=== PATIENT | male | born 1960 | race Caucasian/White ===

== ENCOUNTER → 2024-08-28 | Outpatient (REF) | payer MEDICAID, MEDICARE, SELFPAY ==
[2024-08-28 10:04] LABS: Hemoglobin 8.9 g/dL (13.0-16.5); Mean Corp Hgb Conc 31.8 g/dL (32-36); Mean Corpuscular Hgb 29.5 pg (27.0-32.0); Mean Corpuscular Volume 92.7 fL (80-94); Mean Platelet Vol. 9.4 fl (6.2-12.0); Platelet Count 263 K/mm3 (150-450); RBC Distribution Width CV 14.4 % (11.6-14.6); RBC Distribution Width SD 49.1 fl (35.1-43.9); Red Blood Count 3.02 M/mm3 (4.6-6.2); White Blood Count 6.7 K/mm3 (4.4-11.0)
[2024-08-28 10:26] LABS: Anion Gap 16 (5-15); BUN 54 mg/dL (4-19); BUN/Creat Ratio 10.1 RATIO (10-20); Calcium,Total 9.3 mg/dL (7.6-11.0); Carbon Dioxide 24.3 mmol/L (21.0-32.0); Chloride 100 mmol/L (98-108); Creatinine, Serum 5.39 mg/dL (0.70-1.20); EST Glomerular Filtration Rate 11 (>60); Glucose 155 mg/dL (70-99); Potassium 4.6 mmol/L (3.3-5.1); Sodium Level 140 mmol/L (133-145)
== END | disposition home or self-care (01) ==
LOC: OLS.SANC 06:40
DX: D64.9 Anemia, unspecified (principal); E11.9 Type 2 diabetes mellitus without complications; E87.5 Hyperkalemia; I10 Essential (primary) hypertension; E78.5 Hyperlipidemia, unspecified
CPT/HCPCS: 36415; 80048; 85027

== ENCOUNTER → 2024-10-07 | Outpatient (REF) | payer MEDICARE, MEDICAID, SELFPAY | LOC: OLS.SANC 04:00 | DX: E11.9 Type 2 diabetes mellitus without complications (principal) | CPT/HCPCS: 36415; 83036 ==

== ENCOUNTER → 2024-10-14 05:00 | Outpatient (REF) | payer MEDICARE, MEDICAID, SELFPAY ==
--- OUTSIDE RECORDS SUMMARY | 2024-10-14 04:09 | XMS RPT_ITS | CCD ---
Author Organization [facility] Care Team Providers Care Scrum Project Manager Name Role Phone Unavailable Primary Care Provider Unavailedward Herrera Belgica L Primary Care Provider Vega DO, Belgica L Primary Care Provider Vega DO, Belgica L Unavailable Jen Bergman RN Unavailable Unavailable Vega DO, Belgica L Primary Care Provider Vega DO, Belgica L Unavailable Vega DO, Belgica L Unavailable Vega DO, Belgica L Primary Care Provider Vega DO, Belgica L Unavailable Jen Bergman RN Unavailable Unavailable Vega DO, Belgica L Unavailable Vega DO, Belgica L Primary Care Provider Vega DO, Belgica L Unavailable Vega DO, Belgica L Unavailable Vega DO, Belgica L Primary Care Provider Vega DO, Belgica L Unavailable Vega DO, Belgica L Unavailable Vega DO, Belgica L Primary Care Provider Vega DO, Belgica L Unavailable Jen Bergman RN Unavailable Unavailable Vega DO, Belgica L Unavailable VEGA, BELGICA L Primary Care Unavailable KYLAH ORANTES Admitting Unavailable KYLAH ORANTES Attending Unavailable ROWNEY, ANTOINE T Admitting Unavailable VEGA, BELGICA L Primary Care Unavailable LUIS CARLOS SHORT JR Attending Unavailable COLLIN CHEEMA Consulting Unavailable BILLY MARTINEZ Attending Unavailabl e VEGA, BELGICA L Primary Care Unavailable Vega DO, Belgica L Unavailable Vega DO, Belgica L Unavailable Jen Bergman RN Unavailable Unavailable Vega DO, Belgica L Primary Care Provider Vega DO, Belgica L Unavailable Jen Bergman RN Unavailable Unavailable Vega DO, Belgica L Unavailable Vega DO, Belgica L Unavailable Bunny Scott MD Primary Care Provider Bunny Scott MD Primary Care Provider Bunny Scott MD Unavailable Simeon Hinds RN Unavailable Unavailable Primary Care Provider Unavailedward Dudley MD, Jose Unavailable EsterBunny judd DO Primary Care Provider ARTEM AHMADI Attending UnavailARTEM Durán Referring UnavailBUNNY Kay Primary Care Unavailable BUNNY SCOTT Primary Care Unavailable NOÉ KENNEDY Attending Unavailable BUNNY SCOTT Primary Care Unavailable ADELFO FRANCOIS Admitting Unavaila ADELFO [place] Attending Unavaila ble ANISHA BUNNY M Primary Care Unavailable YULIYA OLIVARES Admitting Unavailable YULIYA OLIVARES Attending Unavailable Bunny Scott MD Unavailable Bunny Scott MD Unavailable Bunny Scott MD Primary Care Provider Bunny Scott MD Unavailable Bunny Scott MD Unavailable BUNNY SCOTT Primary Care Unavailable RENETTA GANNON Attending Unavailable BUNNY SCOTT Primary Care Unavailable BUNNY SCOTT Primary Care Unavailable JOSE DUDLEY Consulting Unavailable BUNNY SCOTT Attending Unavailable BUNNY SCOTT Primary Care Unavailable BUNNY SCOTT Admitting Unavailable Citlaly Garcia MD Attending Provider Unava ilable Citlaly Miller Attending Unavail able Citlaly Miller Attending Unavail able Allergies Allergy Classification Reported Allergen(s) Allergy Type Date of Onset Reaction(s) Facility Penicillins (antibiotic) (4 sources) Penicillins Drug Allergy 07-24-2020 Unknown [facility] (18 sources) Penicillins; Translations: [PENICILLINS] Propensity to adverse reactions to drug 07-24-2020 Unknown [facility] (20 sources) Penicillins Propensity to adverse reactions to drug 07-24-2020 Unknown [facility] (5 sources) Penicillins Propensity to adverse reactions to drug 07-24-2020 Unknown [facility] Medications Current Medications Medication Drug Class(es) Dates Sig (Normalized) Sig (Original) acetaminophen 325 mg / oxyCODONE hydrochloride 5 mg oral tablet (2 sources) Opioid Agonist Start: 09-02-2022 End: 09-09-2022 take 1 tablet by mouth every four hours as needed for pain oxyCODONE-acetamin ophen (PERCOCET) 5-325 mg tablet Indications: Chronic left hip pain , Lumbar back pain with radiculopathy affecting lower extremity , Spinal stenosis of lumbar region with neurogenic claudication , Lumbar radiculopathy , Chronic bilateral low back pain with left-sided sciatica , Spinal stenosis of lumbar region, unspecified whether neurogenic claudication present Take 1 tablet by mouth every 4 hours as needed for pain for up to 7 days. 28 tablet 0 09/02/2022 09/09/2022 Active Comment on above: Take 1 tablet by corinne th every 4 hours as needed for pain for up to 7 days. Administered Medications Medication Order MAR Action Action Date Dose Rate Site tuberculin skin test, unspecified formulation Given 04/28/2021 (1 source) Administered Medications Medication Order MAR Action Action Date Dose Rate Site tuberculin skin test, unspecified formulation Given 04/28/2021 [id number] 200 actuat albuterol 0.09 mg/actuat metered dose inhaler (20 sources) beta2-Adrenergic Agonist Start: 11-06-2020 End: 01-18-2022 take 2 puff(s) by inhalation every four hours as needed for wheezing albuterol HFA (PROVENTIL HFA, VENTOLIN HFA) 90 mcg/actuation inhaler Indications: SOB (shortness of breath) Inhale 2 Puffs as instructed every 4 hours as needed for wheezing/shortness of breath. 1 Each 0 11/06/2020 01/18/2022 Discontinued (Other) Comment on above: Inhale 2 Puffs as in structed every 4 hours as needed for wheezing/shortness of breath. amLODIPine 5 mg oral tablet (20 sources) Dihydropyridine Calcium Channel Meghan Start: 10-20-2023 End: 01-18-2024 take 1 tablet by mouth twice daily amLODIPine (NORVASC) 5 mg tablet Take 1 tablet by mouth two times a day. 60 tablet 2 10/20/2023 Active Start: 06-10-2023 End: 09-08-2023 take 1 tablet by mouth twice daily amLODIPine (NORVASC) 5 mg tablet Take 1 tablet by mouth two times a day. 180 tablet 0 06/10/2023 Suspended Comment on above: Take 1 tablet by corinne th two times a day. 12 hr buPROPion hydrochloride 100 mg extended release oral tablet (20 sources) Aminoketone Start: 05-31-19 End: 01-19-20 take 1 tablet by mouth once daily buPROPion SR (WELLBUTRIN SR) 100 mg 12 hr tablet Indications: Severe episode of recurrent major depressive disorder, without psychotic features (HCC) , Medication non-compliance due to excessive pill burden , Cannabis use disorder, severe, dependence (HCC) , Tobacco use disorder, mild, in sustained remission Take 1 tablet by mouth once daily. 30 tablet 2 05/31/2021 01/18/2022 Discontinued (Discontinued by Patient) Comment on above: Take 1 tablet by corinne th once daily. carvedilol 25 mg oral tablet (20 sources) alpha-Adrenergic Meghan, beta-Adrenergic Meghan Start: 10-20-19 take 1 tablet by mouth twice daily at mealtime carvedilol (COREG) 25 mg tablet Take 1 tablet by mouth two times a day with meals. 60 tablet 2 10/20/2023 Active Start: 05-26-2023 take 1 tablet by corinne th twice daily at mealtime carvedilol (COREG) 25 mg tablet Take 1 tablet by mouth two times a day with meals. 0 05/26/2023 Suspended Comment on above: Take 1 tablet by corinne th two times a day with meals. cephalexin 500 mg oral capsule (5 sources) Cephalosporin Antibacterial Start: End: take 1 capsule by mouth three times daily cephALEXin (KEFLEX) 500 mg capsule Take 1 capsule by mouth three times a day for 5 days. 15 capsule 0 10/20/2023 10/25/2023 Active clotrimazole 10 mg/ml topical cream (4 sources) Azole Antifungal Start: End: clotrimazole (LOTRIMIN, CLOTRIM) 1 % cream Indications: Tinea pedis of both feet Apply 1 application to affected area twice daily. 45 g 0 06/02/2021 08/02/2021 Active Comment on above: Apply 1 application to affected area twice daily. cyclobenzaprine hydrochloride 10 mg oral tablet (20 sources) Muscle Relaxant Start: take 1 tablet by mouth three times daily as needed for muscle spasms cyclobenzaprine (FLEXERIL) 10 mg tablet Indications: Somatic dysfunction of lumbar region Take 1 tablet by mouth three times a day as needed for muscle spasm. 21 tablet 10/20/2023 Active Start: 01-04-2023 take 1 tablet by corinne th three times daily as needed for muscle spasms cyclobenzaprine (FLEXERIL) 10 mg tablet Indications: Somatic dysfunction of lumbar region Take 1 tablet by mouth three times a day as needed for muscle spasm. 15 tablet 0 01/04/2023 Suspended Start: 09-16-2022 take 1 tablet by corinne th every eight hours as needed cyclobenzaprine (FLEXERIL) 10 mg tablet Take 1 tablet by mouth three times daily as needed for muscle spasm. 15 tablet 0 09/16/2022 Active Start: 09-02-2022 take 1 tablet by corinne th at bedtime as needed cyclobenzaprine (FLEXERIL) 10 mg tablet Indications: Chronic left hip pain , Lumbar back pain with radiculopathy affecting lower extremity , Spinal stenosis of lumbar region with neurogenic claudication , Lumbar radiculopathy , Chronic bilateral low back pain with left-sided sciatica , Spinal stenosis of lumbar region, unspecified whether neurogenic claudication present Take 1 tablet by mouth at bedtime as needed. 30 tablet 1 09/02/2022 Active Comment on above: Take 1 tablet by corinne th at bedtime as needed. Take 1 tablet by corinne th three times daily as needed for muscle spasm. Take 1 tablet by corinne th three times a day as needed for muscle spasm. dapagliflozin 10 mg oral tablet (12 sources) Sodium-Glucose Cotransporter 2 Inhibitor Start: End: take 1 tablet by mouth once daily at breakfast dapagliflozin propanediol (FARXIGA) 10 mg tablet Take 1 tablet by mouth daily with breakfast. 90 tablet 1 01/24/2024 Active diazePAM 10 mg oral tablet (20 sources) Benzodiazepine Start: take 1 tablet by mouth every twelve hours as needed diazePAM (VALIUM) 10 mg tablet Take 10 mg by mouth two times a day as needed for anxiety. 11/07/2023 Active doxazosin 2 mg oral tablet (20 sources) alpha-Adrenergic Meghan Start: End: take 1 tablet by mouth once daily at bedtime doxazosin (CARDURA) 2 mg tablet Take 1 tablet by mouth daily at bedtime. 30 tablet 07/15/2024 08/14/2024 Active Start: 10-20-2023 take 1 tablet by corinne th once daily at bedtime doxazosin (CARDURA) 1 mg tablet Take 1 tablet by mouth daily at bedtime. 30 tablet 2 10/20/2023 Suspended doxycycline hyclate 100 mg oral tablet (6 sources) Tetracycline-class Drug Start: 09-28-2022 End: 10-08-2022 take 1 tablet by mouth twice daily doxycycline (VIBRA-TABS) 100 mg tablet Indications: Cutaneous abscess of abdominal wall Take 1 tablet by mouth twice daily for 10 days. 20 tablet 0 09/28/2022 10/08/2022 Active Start: 09-02-2021 End: 09-12-2021 take 1 tablet by mouth twice daily doxycycline monohydrate 100 mg tablet Take 1 tablet by mouth twice daily for 5 days. 10 tablet 0 09/07/2021 09/12/2021 Active Comment on above: Take 1 tablet by corinne th twice daily for 5 days. Take 1 tablet by corinne th twice daily for 10 days. DULoxetine 30 mg delayed release oral capsule (20 sources) Serotonin and Norepinephrine Reuptake Inhibitor Start: take 1 capsule by mouth once daily DULoxetine (CYMBALTA) 30 mg capsule Take 1 capsule by mouth once daily. 30 capsule 2 10/21/2023 Active ergocalciferol 1.25 mg oral capsule (20 sources) Provitamin D2 Compound Start: End: 025 take 1 capsule by mouth every week ergocalciferol 50,000 unit capsule (VITAMIN D2, DRISDOL) Take 1 capsule by mouth one time a week. 12 capsule 1 01/25/2024 Active Start: 01-30-2022 End: 06-29-2022 take 1 capsule by mouth every week ergocalciferol 50,000 unit capsule (VITAMIN D2, DRISDOL) Take 1 capsule by mouth one time a week. 4 capsule 0 01/30/2022 06/29/2022 Discontinued (Duplicate Entry) Start: 01-30-2022 take 1 capsule by mo [facility] every week ergocalciferol 50,000 unit capsule (VITAMIN D2, DRISDOL) Take 1 capsule by mouth one time a week. 4 capsule 0 01/30/2022 Active Comment on above: Take 1 capsule by mo [facility] one time a week. finasteride 5 mg oral tablet (13 sources) 5-alpha Reductase Inhibitor Start: 05-04-2022 End: 08-02-2022 take 1 tablet by mouth once daily finasteride (PROSCAR) 5 mg tablet Take 1 tablet by mouth once daily. 90 tablet 3 05/04/2022 08/02/2022 Active Comment on above: Take 1 tablet by corinne once daily. furosemide 20 mg oral tablet (20 sources) Loop Diuretic Start: 06-10-2023 take 1 tablet by mouth once daily after lunch furosemide (LASIX) 20 mg tablet Take 1 tablet by mouth daily after lunch. 30 tablet 0 06/10/2023 Active Start: 10-13-2022 take 1 tablet by corinne th once daily furosemide (LASIX) 20 mg tablet Take 1 tablet by mouth once daily. 90 tablet 1 10/13/2022 Suspended Comment on above: Take 1 tablet by corinne th once daily. Take 1 tablet by corinne th daily after lunch. gabapentin 300 mg oral capsule (20 sources) Anti-epileptic Agent Start: 10-22-19 End: 01-19-20 take 1 capsule by mouth three times daily gabapentin (NEURONTIN) 300 mg capsule Indications: Spinal stenosis of lumbar region with neurogenic claudication , Chronic bilateral low back pain with left-sided sciatica Take 1 capsule by mouth three times daily for 90 days. 90 capsule 2 10/21/2020 01/18/2022 Discontinued (Discontinued by Patient) Comment on above: Take 1 capsule by mo [facility] three times daily for 90 days. 1 ml heparin sodium, porcine 1000 unt/ml injection (1 source) Unfractionated Heparin, Anti-coagulant Start: 07-25-19 heparin 1,000 unit/mL soln Inject 3.6 mL intravenously as needed (To close HD catheter. Fill each lumen to prescribed volume.). 07/24/2024 Active hydrALAZINE hydrochloride 50 mg oral tablet (20 sources) Arteriolar Vasodilator Start: 07-16-19 End: 08-15-19 take 1 tablet by mouth twice daily hydrALAZINE (APRESOLINE) 50 mg tablet Take 1 tablet by mouth two times a day. 60 tablet 07/15/2024 08/14/2024 Active Start: 10-20-2023 take 1 tablet by corinne twice daily hydrALAZINE (APRESOLINE) 25 mg tablet Take 1 tablet by mouth two times a day. 60 tablet 2 10/20/2023 Suspended Start: 06-12-2023 take 1 tablet by corinne th twice daily hydrALAZINE (APRESOLINE) 25 mg tablet Take 1 tablet by mouth two times a day. 120 tablet 0 06/12/2023 Suspended Comment on above: Take 1 tablet by corinne two times a day. 1.5 ml insulin glargine 300 unt/ml pen injector (20 sources) Insulin Analog Start: 5 End: 5 inject 18 [IU] by subcutaneous injection once daily in the morning insulin glargine U-300 conc (TOUJEO SOLOSTAR U-300 INSULIN) 300 unit/mL (1.5 mL) Inject 18 Units subcutaneously every morning. 3 mL 07/15/2024 08/14/2024 Active Start: 10-20-2023 insulin glargi ne (BASAGLAR KWIKPEN U-100 INSULIN) 100 unit/mL (3 mL) Inject 24 Units subcutaneously daily at bedtime. 5 Each 2 10/20/2023 Suspended Start: 06-10-2023 End: 09-08-2023 insulin glargine (BASAGLAR K WIKPEN U-100 INSULIN) 100 unit/mL (3 mL) Inject 24 Units subcutaneously daily at bedtime. 7.2 mL 2 06/10/2023 Suspended Start: 11-04-2022 inject 26 [IU] by kim bcutaneous injection once daily at bedtime insulin glargine 100 unit/mL (3 mL) Indications: Diabetes mellitus due to underlying condition, uncontrolled, with hyperglycemia (HCC) Inject 26 Units subcutaneously daily at bedtime. 6 Each 1 11/04/2022 Suspended Start: 03-01-2022 End: 11-04-2022 inject 26 [IU] by subcutaneous injection once daily at bedtime insulin glargine 100 unit/mL (3 mL) Indications: Diabetes mellitus due to underlying condition, uncontrolled, with hyperglycemia (HCC) Inject 26 Units subcutaneously daily at bedtime. 6 Each 1 11/04/2022 Active Start: 06-02-2021 End: 03-01-2022 insulin glargine (LANTUS EV OSTAR, BASAGLAR KWIKPEN) 100 unit/mL (3 mL) Indications: Diabetes mellitus due to underlying condition, uncontrolled, with hyperglycemia (HCC) Inject 26 Units subcutaneously daily at bedtime. 6 Each 1 03/01/2022 Active Comment on above: Inject 26 Units subc utaneously daily at bedtime. Inject 24 Units subc utaneously daily at bedtime. 3 ml insulin lispro 100 unt/ml pen injector (20 sources) Insulin Analog Start: 10-20-2023 insulin lispro (HUMALOG KWIKPEN INSULIN) 100 unit/mL Inject 8 Units subcutaneously three times a day before meals. SLIDING SCALE: bld sugar 60-124=0 units 125-150=2 units, 151-200=4 units, 201-250=6 untis 251-300=8 units, 301-350=10 units, 351-400=12 units 11/03/2023 Active Start: 06-13-2023 inject 8 [IU] by sub cutaneous injection three times daily before mealtime insulin lispro (HUMALOG KWIKPEN) 100 unit/mL Inject 8 Units subcutaneously three times a day before meals. 3 Each 2 06/13/2023 Suspended Comment on above: Inject 8 Units subcu taneously three times a day before meals. iv contrast (will be provided with radiology test) (20 sources) Start: 12-11-2020 End: 01-18-2022 iv contrast (will be provided with radiology test) MRI Pelvis Inject, intravenously, once for 1 dose. No IV access, insert saline lock prior to the beginning of sedation, infusion, injection of imaging exam. Discontinue saline lock post exam. If Pt has a central line or IVAD, may access for administration according to line specific nursing protocol. Once exam is complete flush line and de-access according to line specific nursing protocol in the MR contrast administration guidelines link. 1 Each 0 12/11/2020 01/18/2022 Discontinued (Other) Start: 12-11-2020 iv contrast (w ill be provided with radiology test) MRI Pelvis Inject, intravenously, once for 1 dose. No IV access, insert saline lock prior to the beginning of sedation, infusion, injection of imaging exam. Discontinue saline lock post exam. If Pt has a central line or IVAD, may access for administration according to line specific nursing protocol. Once exam is complete flush line and de-access according to line specific nursing protocol in the MR contrast administration guidelines link. 1 Each 0 12/11/2020 Suspended Start: 12-11-2020 iv contrast (w ill be provided with radiology test) MRI Pelvis Inject, intravenously, once for 1 dose. No IV access, insert saline lock prior to the beginning of sedation, infusion, injection of imaging exam. Discontinue saline lock post exam. If Pt has a central line or IVAD, may access for administration according to line specific nursing protocol. Once exam is complete flush line and de-access according to line specific nursing protocol in the MR contrast administration guidelines link. 1 Each 0 12/11/2020 Active Start: 02-20-2020 End: 02-21-2020 inject 1 dose intravenous route once iv contrast (will be provided with radiology test) Indications: Dizziness CTA Head WO/W IVCON No IV access, insert saline lock prior to the sedation, infusion, injection for imaging exam. Discontinue saline lock post exam. If Pt. has a central line or IVAD, may access for administration according to line specific nursing protocol. Once exam is complete flush line and de-access according to line specific nursing protocol in the CT contrast administration guidelines link. 1 Each 0 02/20/2020 02/21/2020 Active Comment on above: CTA Head WO/W IVCON No IV access, insert saline lock prior to the sedation, infusion, injection for imaging exam. Discontinue saline lock post exam. If Pt. has a central line or IVAD, may access for administration according to line specific nursing protocol. Once exam is complete flush line and de-access according to line specific nursing protocol in the CT contrast administration guidelines link. MRI Pelvis Inject, i ntravenously, once for 1 dose. No IV access, insert saline lock prior to the beginning of sedation, infusion, injection of imaging exam. Discontinue saline lock post exam. If Pt has a central line or IVAD, may access for administration according to line specific nursing protocol. Once exam is complete flush line and de-access according to line specific nursing protocol in the MR contrast administration guidelines link. pantoprazole 40 mg delayed release oral tablet (20 sources) Proton Pump Inhibitor Start: 10-20-19 take 1 tablet by mouth once daily pantoprazole DR (PROTONIX) 40 mg tablet Take 1 tablet by mouth once daily. 30 tablet 2 10/20/2023 Active Start: 04-02-2022 End: 05-02-2022 take 1 tablet by mouth once daily, then take 6 tablets by mouth in the morning pantoprazole DR (PROTONIX) 40 mg tablet Take 1 tablet by mouth DAILY (6 AM). 30 tablet 2 04/02/2022 Suspended Start: 04-24-2021 End: 01-18-2022 take 1 tablet by mouth twice daily before mealtime pantoprazole DR (PROTONIX) 40 mg tablet Take 1 tablet by mouth twice daily before meals (0600/1600). 60 tablet 0 04/24/2021 01/18/2022 Discontinued (Other) Comment on above: Take 1 tablet by corinne th twice daily before meals (0600/1600). Take 1 tablet by corinne th DAILY (6 AM). perflutren lipid microspheres 1.3 mL in NaCl (PF) 0.9% 10 mL injection (DEFINITY) (15 sources) Start: 10-14-19 End: 01-12-20 perflutren lipid microspheres 1.3 mL in NaCl (PF) 0.9% 10 mL injection (DEFINITY) predniSONE 20 mg oral tablet (1 source) Start: 09-17-19 End: 09-21-19 take 2 tablets by mouth once daily predniSONE (DELTASONE) 20 mg tablet Take 2 tablets by mouth once daily for 4 doses. 8 tablet 0 09/16/2022 09/20/2022 Active Comment on above: Take 2 tablets by mo [facility] once daily for 4 doses. sodium polystyrene sulfonate 250 mg/ml oral suspension (2 sources) Start: 11-07-19 sodium polystyrene sulfonate, with sorbitol, (SPS, WITH SORBITOL,) 30-40 gram/120 mL enema liquid 30 g one time only. oral x 1 dose, mix 30g in 8oz h20 0 11/07/2023 Active sodium zirconium cyclosilicate 5000 mg powder for oral suspension (8 sources) Start: 07-17-19 End: 08-16-19 sodium zirconium cyclosilicate (LOKELMA) 5 gram oral packet Take 3 packets by mouth once daily. 90 packet 07/16/2024 08/15/2024 Active Start: 04-26-2024 End: 05-26-2024 take 1 dose by mouth once daily sodium zirconium cyclosilicate (LOKELMA) 10 gram oral packet Take 1 Packet by mouth once daily. Mix powder in 45 mL of water, stir and drink immediately. 30 Packet 04/26/2024 05/26/2024 Active sulfamethoxazole 800 mg / trimethoprim 160 mg oral tablet (5 sources) Dihydrofolate Reductase Inhibitor Antibacterial, Sulfonamide Antimicrobial Start: 09-28-2022 End: 10-08-2022 take 1 tablet by mouth twice daily sulfamethoxazole-trimethoprim (BACTRIM DS) 800-160 mg per tablet Indications: Cutaneous abscess of abdominal wall Take 1 tablet by mouth twice daily for 10 days. 20 tablet 0 09/28/2022 10/08/2022 Active Comment on above: Take 1 tablet by corinne th twice daily for 10 days. Take 1 tablet by corinne th twice daily for 5 days. Completed/Discontinued Medications Medication Drug Class(es) Dates Sig (Normalized) Sig (Original) acetaminophen 500 mg oral tablet (20 sources) Start: 10-20-2023 End: 01-24-2024 take 2 tablets by mouth every eight hours acetaminophen (TYLENOL) 500 mg tablet Take 2 tablets by mouth every 8 hours. 10/20/2023 01/24/2024 Discontinued Start: 09-16-2022 End: 05-23-2023 take 2 tablets by mouth every eight hours acetaminophen (TYLENOL) 500 mg tablet Take 2 tablets by mouth every 8 hours. 80 tablet 0 09/16/2022 05/23/2023 Discontinued Comment on above: Take 2 tablets by mo [facility] every 8 hours. atorvastatin 40 mg oral tablet (6 sources) HMG-CoA Reductase Inhibitor Start: 2 End: 2 take 1 tablet by mouth once daily at bedtime atorvastatin (LIPITOR) 40 mg tablet Take 1 tablet by mouth daily at bedtime. 30 tablet 0 01/26/2022 03/01/2022 Discontinued (Discontinued by Patient) Comment on above: Take 1 tablet by [facility] daily at bedtime. benoxinate hydrochloride 4 mg/ml / fluorescein sodium 3 mg/ml ophthalmic solution (6 sources) Diagnostic Dye Start: 4 End: fluorescein-benoxina te 0.3-0.4 % 1 Drop (FLURESS) Start: 12-29-2023 End: 12-30-2023 1 Drop, BOTH EYES, DIRECT ED, Starting on 12/29/23 at 1500, Until 12/30/23 at 0259, Administer for applanation tonometry. In the event of a Fluress shortage, administer Rhiannon-Fluor 1 drop into both eyes as directed for applanation tonometry, OPHT CLINIC MED ORDERS Start: 09-16-2022 End: 09-17-2022 fluorescein-benoxinate 0.25- 0.4 % 1 Drop (FLURESS) Start: 07-14-2022 End: 07-15-2022 fluorescein-benoxinate 0.25- 0.4 % 1 Drop (FLURESS) Start: 11-05-2021 End: 11-06-2021 fluorescein-benoxinate 0.25- 0.4 % 1 Drop (FLURESS) Blood-Glucose Meter monitori ng kit (20 sources) Start: 05-18-2022 Blood-Glucose Meter monitoring kit Indications: Diabetes mellitus due to underlying condition, uncontrolled, with hyperglycemia (HCC) For monitoring sugars 3x/day (patient on insulin) 1 Each 1 05/18/2022 Suspended Start: 05-18-2022 Blood-Glucose Meter monitoring kit Indications: Diabetes mellitus due to underlying condition, uncontrolled, with hyperglycemia (HCC) For monitoring sugars 3x/day (patient on insulin) 1 Each 1 05/18/2022 Active Start: 10-06-2020 End: 05-18-2022 Blood-Glucose Meter monitori ng kit For monitoring sugars 3x/day (patient on insulin) 1 Each 1 10/06/2020 05/18/2022 Discontinued Start: 10-06-2020 Blood-Glucose Meter monitoring kit For monitoring sugars 3x/day (patient on insulin) 1 Each 1 10/06/2020 Suspended Start: 10-06-2020 Blood-Glucose Meter monitoring kit For monitoring sugars 3x/day (patient on insulin) 1 Each 1 10/06/2020 Active Comment on above: For monitoring sugar s 3x/day (patient on insulin) cholecalciferol 1.25 mg oral capsule (20 sources) Vitamin D Start: 2022 End: 2023 take 1 capsule by mouth every week cholecalciferol, Vitamin D3, (VITAMIN D3) 1,250 mcg (50,000 unit) cap capsule Indications: Vitamin D deficiency Take 1 capsule by mouth one time a week. 12 capsule 0 12/23/2022 05/23/2023 Discontinued Comment on above: Take 1 capsule by [facility] one time a week. ciprofloxacin 3 mg/ml ophthalmic solution (20 sources) Quinolone Antimicrobial Start: 2022 take 1 drop(s) into the eye(s) four times daily ciprofloxacin HCl (CILOXAN) 0.3 % ophthalmic solution Use 1 Drop in the left eye four times daily. 5 mL 1 07/14/2022 Active Comment on above: Use 1 Drop in the le ft eye four times daily. clindamycin 300 mg oral capsule (3 sources) Lincosamide Antibacterial Start: 2021 End: 2021 take 1 capsule by mouth three times daily clindamycin (CLEOCIN) 300 mg capsule Indications: Abscess of neck Take 1 capsule by mouth three times daily. 30 capsule 0 09/20/2021 10/05/2021 Discontinued (Course of therapy completed) Comment on above: Take 1 capsule by [facility] three times daily. 0.5 ml dulaglutide 3 mg/ml auto-injector (20 sources) GLP-1 Receptor Agonist Start: 2021 End: 2022 inject 1.5 mg by subcutaneous injection every week dulaglutide (TRULICITY) 1.5 mg/0.5 mL pen injector Indications: Diabetes mellitus due to underlying condition, uncontrolled, with hyperglycemia (HCC) Inject 1.5 mg subcutaneously one time a week. 4 Each 1 03/01/2022 04/13/2022 Discontinued (Changing Therapy/Dosage Form) Start: 07-05-2021 End: 08-11-2021 inject 0.75 mg by subcutaneous injection every week dulaglutide (TRULICITY) 0.75 mg/0.5 mL pen injector Indications: Diabetes mellitus due to underlying condition, uncontrolled, with hyperglycemia (HCC) Inject 0.75 mg subcutaneously one time a week. 30 Each 1 07/05/2021 08/11/2021 Discontinued (Changing Therapy/Dosage Form) Comment on above: Inject 0.75 mg subcu taneously one time a week. Inject 1.5 mg subcut aneously one time a week. dulaglutide (TRULICITY) 3 mg/0.5 mL pen injector (7 sources) Start: End: inject 3 mg by subcutaneous injection every week dulaglutide (TRULICITY) 3 mg/0.5 mL pen injector Inject 3 mg subcutaneously one time a week. 4 Each 1 04/13/2022 05/18/2022 Discontinued (Changing Therapy/Dosage Form) Start: 04-13-2022 inject 3 mg by subcu taneous injection every week dulaglutide (TRULICITY) 3 mg/0.5 mL pen injector Inject 3 mg subcutaneously one time a week. 4 Each 1 04/13/2022 Active Comment on above: Inject 3 mg subcutan eously one time a week. dulaglutide (TRULICITY) 4.5 mg/0.5 mL pen injector (20 sources) Start: End: inject 4.5 mg by subcutaneous injection every week dulaglutide (TRULICITY) 4.5 mg/0.5 mL pen injector Indications: Diabetes mellitus due to underlying condition, uncontrolled, with hyperglycemia (HCC) Inject 4.5 mg subcutaneously one time a week. 12 Each 0 11/04/2022 05/23/2023 Discontinued Start: 11-04-2022 inject 4.5 mg by sub cutaneous injection every week dulaglutide (TRULICITY) 4.5 mg/0.5 mL pen injector Indications: Diabetes mellitus due to underlying condition, uncontrolled, with hyperglycemia (HCC) Inject 4.5 mg subcutaneously one time a week. 12 Each 0 11/04/2022 Active Start: 06-29-2022 End: 11-04-2022 inject 4.5 mg by subcutaneous injection every week dulaglutide (TRULICITY) 4.5 mg/0.5 mL pen injector Indications: Diabetes mellitus due to underlying condition, uncontrolled, with hyperglycemia (HCC) Inject 4.5 mg subcutaneously one time a week. 12 Each 0 06/29/2022 11/04/2022 Discontinued Start: 06-29-2022 inject 4.5 mg by sub cutaneous injection every week dulaglutide (TRULICITY) 4.5 mg/0.5 mL pen injector Indications: Diabetes mellitus due to underlying condition, uncontrolled, with hyperglycemia (HCC) Inject 4.5 mg subcutaneously one time a week. 12 Each 06/29/2022 Active Start: 05-18-2022 End: 06-29-2022 inject 4.5 mg by subcutaneous injection every week dulaglutide (TRULICITY) 4.5 mg/0.5 mL pen injector Indications: Diabetes mellitus due to underlying condition, uncontrolled, with hyperglycemia (HCC) Inject 4.5 mg subcutaneously one time a week. 4 Each 05/18/2022 06/29/2022 Discontinued Start: 05-18-2022 inject 4.5 mg by sub cutaneous injection every week dulaglutide (TRULICITY) 4.5 mg/0.5 mL pen injector Indications: Diabetes mellitus due to underlying condition, uncontrolled, with hyperglycemia (HCC) Inject 4.5 mg subcutaneously one time a week. 4 Each 05/18/2022 Active Comment on above: Inject 4.5 mg subcut aneously one time a week. hydroCHLOROthiazide 12.5 mg oral tablet (1 source) Thiazide Diuretic Start : 04-25 take 1 tablet by mouth once daily hydroCHLOROthiazide (HYDRODIURIL, ESIDRIX) 12.5 mg tablet Take 1 tablet by mouth once daily. 30 tablet 0 04/25/2021 Active Comment on above: Take 1 tablet by corinne [facility] once daily. isopropyl alcohol 0.7 ml/ml medicated pad (20 sources) Start : 05-18 alcohol swabs (ALCOHOL PREP PADS) Indications: Diabetes mellitus due to underlying condition, uncontrolled, with hyperglycemia (HCC) Apply 1 application to affected area as directed. Recommend check blood sugar once daily, rotate times. Sometimes check in the morning sometimes 2 hours after meals, sometimes at bedtime. Please bring in blood sugar log and have available for review. 100 Each 3 05/18/2022 Suspended Start: 09-11-2020 End: 05-18-2022 alcohol swabs (ALCOHOL PREP PADS) Indications: Diabetes mellitus due to underlying condition, uncontrolled, with hyperglycemia (HCC) Apply 1 application to affected area as directed. 100 Each 3 09/11/2020 05/18/2022 Discontinued Comment on above: Apply 1 application to affected area as directed. Apply 1 application to affected area as directed. Recommend check blood sugar once daily, rotate times. Sometimes check in the morning sometimes 2 hours after meals, sometimes at bedtime. Please bring in blood sugar log and have available for review. ketorolac tromethamine 5 mg/ml ophthalmic solution (20 sources) Nonsteroidal Anti-inflammatory Drug, Cyclooxygenase Inhibitor Start: take 1 drop(s) into the eye(s) four times daily keTORolac (ACULAR) 0.5 % ophthalmic solution Use 1 Drop in the left eye four times daily. 5 mL 1 07/14/2022 Active Comment on above: Use 1 Drop in the le ft eye four times daily. lidocaine 0.05 mg/mg medicated patch (20 sources) Antiarrhythmic, Amide Local Anesthetic Start: End: apply 1 dose transdermal route once daily, then apply 1 dose transdermal route every twelve hours lidocaine (LIDODERM) 5 % Apply 1 Patch as directed once daily. to affected area. Remove patch after 12 hours. 15 Patch 0 09/16/2022 05/23/2023 Discontinued Start: 11-24-2020 End: 01-18-2022 lidocaine (XYLOCAINE) 2 % je lly Apply 1 application to affected area three times daily. 30 mL 2 11/24/2020 01/18/2022 Discontinued (Other) Comment on above: Apply 1 application to affected area three times daily. Apply 1 Patch as dir ected once daily. to affected area. Remove patch after 12 hours. lisinopril 5 mg oral tablet (20 sources) Angiotensin Converting Enzyme Inhibitor Start: End: take 1 tablet by mouth once daily lisinopril (ZESTRIL) 5 mg tablet Indications: Hypertension, essential Take 1 tablet by mouth once daily. 30 tablet 1 12/23/2022 05/23/2023 Discontinued Start: 09-16-2022 End: 05-23-2023 take 1 tablet by mouth once daily lisinopril (ZESTRIL) 10 mg tablet Indications: Hypertension, essential Take 1 tablet by mouth once daily. 90 tablet 0 11/04/2022 05/23/2023 Discontinued Start: 06-29-2022 take 1.5 tablets by mouth once daily lisinopril (ZESTRIL) 5 mg tablet Indications: Hypertension, essential Take 1.5 tablets by mouth once daily. 45 tablet 1 06/29/2022 Active Start: 03-01-2022 End: 06-29-2022 take 1 tablet by mouth once daily lisinopril (ZESTRIL, PRINIVIL) 5 mg tablet Indications: Hypertension, essential , Microalbuminuria Take 1 tablet by mouth once daily. 90 tablet 1 05/18/2022 06/29/2022 Discontinued (Changing Therapy/Dosage Form) Start: 01-27-2022 End: 03-01-2022 take 1 tablet by mouth once daily lisinopril (ZESTRIL, PRINIVIL) 20 mg tablet Take 1 tablet by mouth once daily. 30 tablet 0 01/27/2022 03/01/2022 Discontinued (Changing Therapy/Dosage Form) Start: 06-02-2021 End: 01-03-2022 take 1 tablet by mouth once daily lisinopril (ZESTRIL, PRINIVIL) 20 mg tablet Indications: Hypertension, essential Take 1 tablet by mouth once daily. 90 tablet 1 11/05/2021 01/03/2022 Discontinued (Discontinued by Patient) Start: 05-28-2020 take 1 tablet by [facility] once daily lisinopril (ZESTRIL, PRINIVIL) 10 mg tablet Indications: Hypertension, essential Take 1 tablet by mouth once daily. 30 tablet 2 05/28/2020 Active Start: 03-23-2020 End: 05-28-2020 take 0.5 tablet by mouth once daily lisinopril (ZESTRIL, PRINIVIL) 20 mg tablet Indications: Uncontrolled hypertension Take 0.5 tablets by mouth once daily. 30 tablet 2 03/23/2020 05/28/2020 Discontinued (Changing Therapy/Dosage Form) Start: 02-14-2020 End: 03-23-2020 take 1 tablet by mouth once daily lisinopril (ZESTRIL, PRINIVIL) 5 mg tablet Take 1 tablet by mouth once daily. 30 tablet 2 02/14/2020 03/23/2020 Discontinued (Changing Therapy/Dosage Form) Comment on above: Take 1 tablet by [facility] once daily. Take 0.5 tablets by mouth once daily. Take 1.5 tablets by mouth once daily. 24 hr metFORMIN hydrochloride 500 mg extended release oral tablet (20 sources) Biguanide Start: 10-06-2020 End: 04-13-2022 metFORMIN ER (GLUCOPHAGE XR) 500 mg 24 hr tablet Two tablets before breakfast and before supper 120 tablet 1 03/01/2022 04/13/2022 Discontinued (Changing Therapy/Dosage Form) Start: 05-28-2020 take 1 tablet by [facility] once daily at dinner metFORMIN ER (GLUCOPHAGE XR) 750 mg 24 hr tablet Indications: Uncontrolled type 2 diabetes mellitus with hyperglycemia (HCC) Take 1 tablet by mouth daily with dinner. 60 tablet 2 05/28/2020 Active Start: 03-23-2020 End: 05-28-2020 take 2 tablets by mouth once daily at dinner metFORMIN ER (GLUCOPHAGE XR) 500 mg 24 hr tablet Indications: Diabetes mellitus due to underlying condition, uncontrolled, with hyperglycemia (HCC) Take 2 tablets by mouth daily with dinner. 30 tablet 2 03/23/2020 05/28/2020 Discontinued (Changing Therapy/Dosage Form) Comment on above: Take 2 tablets by mo uth daily with dinner. Take 1 tablet by [facility] daily with dinner. Two tablets before b reakfast and before supper metFORMIN hydrochloride 500 mg / pioglitazone 15 mg oral tablet (7 sources) Biguanide, Peroxisome Proliferator Receptor alpha Agonist, Peroxisome Proliferator Receptor gamma Agonist, Thiazolidinedione Start: End: take 1 tablet by mouth twice daily at mealtime pioglitazone-metFOR MIN 15-500 mg per tablet Indications: Diabetes mellitus due to underlying condition, uncontrolled, with hyperglycemia (HCC) Take 1 tablet by mouth twice daily with meals. 60 tablet 2 02/18/2020 03/23/2020 Discontinued (Changing Therapy/Dosage Form) Comment on above: Take 1 tablet by [facility] twice daily with meals. ondansetron 4 mg oral tablet (20 sources) Serotonin-3 Receptor Antagonist Start: End: take 1 tablet by mouth every eight hours as needed ondansetron (ZOFRAN) 4 mg tablet Take 1 tablet by mouth every 8 hours as needed for nausea/vomiting for up to 5 days. 15 tablet 0 04/01/2022 04/06/2022 Start: 09-07-2021 End: 09-14-2021 take 1 tablet by mouth every six hours as needed ondansetron orally disintegrating (ZOFRAN ODT) 4 mg disintegrating tablet Take 1 tablet by mouth every 6 hours as needed for nausea/vomiting for up to 7 days. 20 tablet 0 09/07/2021 09/14/2021 Active Comment on above: Take 1 tablet by [facility] every 6 hours as needed for nausea/vomiting for up to 7 days. Take 1 tablet by [facility] every 8 hours as needed for nausea/vomiting for up to 5 days. Take by mouth every 8 hours as needed for nausea/vomiting. oxyCODONE hydrochloride 10 mg oral tablet (20 sources) Opioid Agonist Start: 10-20-19 End: 10-27-19 take 1 tablet by mouth every eight hours as needed for pain oxyCODONE IR (ROXICODONE) 10 mg tab Indications: Spinal stenosis of lumbar region with neurogenic claudication , Lumbar radiculopathy , Acute post-operative pain Take 1 tablet by mouth every 8 hours as needed for pain for up to 7 days. 21 tablet 0 10/20/2023 10/27/2023 Start: 09-23-2022 End: 09-30-2022 take 1 tablet by mouth every six hours as needed for pain oxyCODONE IR (ROXICODONE) 5 mg immediate release tablet Indications: Lumbar back pain with radiculopathy affecting lower extremity , Chronic bilateral low back pain with left-sided sciatica Take 1 tablet by mouth every 6 hours as needed for pain for up to 7 days. for pain. 28 tablet 0 09/23/2022 09/30/2022 Active Start: 09-16-2022 End: 09-21-2022 take 1 tablet by mouth every six hours as needed oxyCODONE IR (ROXICODONE) 5 mg immediate release tablet Indications: Lumbar radiculopathy Take 1 tablet by mouth every 6 hours as needed for up to 5 days. 20 tablet 0 09/16/2022 09/21/2022 Active take 1 tablet by [facility] every six hours oxyCODONE IR (ROXICODONE) 10 mg tab Take 10 mg by mouth every 6 hours. 0 Active take 1 tablet by [facility]ne [facility] every four hours as needed oxyCODONE IR (ROXICODONE) 10 mg tab Take 10 mg by mouth every 4 hours as needed for pain. 0 Suspended oxyCODONE IR (RO XICODONE) 10 mg tab Take by mouth once daily. 0 Suspended Comment on above: Take 1 tablet by [facility] every 6 hours as needed for up to 5 days. Take 1 tablet by [facility] every 6 hours as needed for pain for up to 7 days. for pain. Take by mouth once d aily. phenylephrine hydrochloride 25 mg/ml ophthalmic solution (5 sources) alpha-1 Adrenergic Agonist Start: 12-29-2023 End: 12-30-2023 PHENYLephrine 2.5 % 1 Drop (AK-DILATE, MARILYN-SYNEPHRINE) Start: 12-29-2023 End: 12-30-2023 1 Drop, BOTH EYES, DIRECT ED, Starting on Mon12/29/23 at 1500, Until 12/30/23 at 0259, Administer for dilation PROTECT FROM LIGHT, OPHT CLINIC MED ORDERS Start: 07-14-2022 End: 07-15-2022 PHENYLephrine 2.5 % 1 Drop ( AK-DILATE, MARILYN-SYNEPHRINE) Start: 11-05-2021 End: 11-06-2021 PHENYLephrine 2.5 % 1 Drop ( AK-DILATE, MARILYN-SYNEPHRINE) pioglitazone 45 mg oral tablet (20 sources) Peroxisome Proliferator Receptor alpha Agonist, Peroxisome Proliferator Receptor gamma Agonist, Thiazolidinedione Start: 09-22-2020 End: 05-23-2023 take 1 tablet by mouth once daily pioglitazone (ACTOS) 45 mg tablet Indications: Diabetes mellitus due to underlying condition, uncontrolled, with hyperglycemia (HCC) Take 1 tablet by mouth once daily. 90 tablet 3 05/18/2022 05/23/2023 Discontinued Start: 05-28-2020 take 1 tablet by [facility] once daily pioglitazone (ACTOS) 30 mg tablet Indications: Uncontrolled type 2 diabetes mellitus with hyperglycemia (HCC) Take 1 tablet by mouth once daily. 30 tablet 2 05/28/2020 Active Start: 03-23-2020 End: 05-28-2020 take 1 tablet by mouth once daily pioglitazone (ACTOS) 15 mg tablet Indications: Diabetes mellitus due to underlying condition, uncontrolled, with hyperglycemia (HCC) Take 1 tablet by mouth once daily. 30 tablet 2 03/23/2020 05/28/2020 Discontinued (Changing Therapy/Dosage Form) Comment on above: Take 1 tablet by [facility] once daily. polyethylene glycol 3350 66826 mg powder for oral solution (20 sources) Osmotic Laxative Start: 10-21-2023 End: 01-24-2024 polyethylene glycol 3350 17 gram packet Take 1 Packet by mouth once daily. Dissolve dose in 4 - 8 ounces of liquid and take as directed. 10/21/2023 01/24/2024 Discontinued Start: 10-21-2023 polyethylene g lycol 3350 17 gram packet [The details of the medication are not available because there are pending changes by a home health clinician.] 10/21/2023 Active prednisoLONE acetate 10 mg/ml ophthalmic suspension (20 sources) Corticosteroid Start: 07-14-2022 prednisoLONE a cetate (PRED FORTE) 1 % ophthalmic suspension Use 1 Drop in the left eye four times daily. 10 mL 1 07/14/2022 Active Comment on above: Use 1 Drop in the le ft eye four times daily. proparacaine hydrochloride 5 mg/ml ophthalmic solution (4 sources) Local Anesthetic Start: 12-29-2023 End: 12-30-2023 proparacaine 0.5 % 1 Drop (ALCAINE) Start: 07-14-2022 End: 07-15-2022 proparacaine 0.5 % 1 Drop (A LCAINE) Start: 11-05-2021 End: 11-06-2021 proparacaine 0.5 % 1 Drop (A LCAINE) rosuvastatin calcium 10 mg oral tablet (20 sources) HMG-CoA Reductase Inhibitor Start: 11-04-2022 End: 05-23-2023 take 1 tablet by mouth once daily at bedtime rosuvastatin (CRESTOR) 10 mg tablet Indications: Mixed hyperlipidemia Take 1 tablet by mouth daily at bedtime. 90 tablet 1 12/23/2022 05/23/2023 Discontinued Start: 08-18-2022 End: 11-04-2022 take 1 tablet by mouth once daily at bedtime rosuvastatin (CRESTOR) 5 mg tablet Indications: Mixed hyperlipidemia Take 1 tablet by mouth daily at bedtime. 90 tablet 0 11/04/2022 11/04/2022 Discontinued (Changing Therapy/Dosage Form) Start: 07-18-2022 take 1 tablet by [facility] once daily at bedtime rosuvastatin (CRESTOR) 5 mg tablet Indications: Mixed hyperlipidemia TAKE 1 TABLET BY MOUTH DAILY AT BEDTIME 30 tablet 1 07/18/2022 Active Start: 06-29-2022 take 1 tablet by [facility] once daily at bedtime rosuvastatin (CRESTOR) 5 mg tablet Indications: Mixed hyperlipidemia Take 1 tablet by mouth daily at bedtime. 30 tablet 1 06/29/2022 Active Start: 10-05-2021 End: 01-18-2022 take 1 tablet by mouth once daily at bedtime rosuvastatin (CRESTOR) 5 mg tablet Indications: Mixed hyperlipidemia Take 1 tablet by mouth daily at bedtime. 30 tablet 1 10/05/2021 01/18/2022 Discontinued (Other) Comment on above: Take 1 tablet by [facility] daily at bedtime. TAKE 1 TABLET BY [facility]IN[facility] DAILY AT BEDTIME 0.25 mg, 0.5 mg dose 1.5 ml semaglutide 1.34 mg/ml pen injector (20 sources) End: semaglutide (OZEMPIC) 0.25 mg or 0.5 mg(2 mg/1.5 mL) pen Inject 0.5 mg subcutaneously one time a week. 07/10/2024 Discontinued sennosides, jail 8.6 mg oral tablet (20 sources) Start: 4 End: 5 take 1 tablet by mouth once daily senna (SENOKOT) 8.6 mg tab Take 1 tablet by mouth once daily. 05/27/2023 07/10/2024 Discontinued Start: 09-16-2022 take 1 capsule by mo [facility] once daily Sennosides (SENNA) 8.6 mg cap Take 1 capsule by mouth once daily. 30 capsule 0 09/16/2022 Suspended Comment on above: Take 1 capsule by mo [facility] once daily. Take 1 tablet by [facility] once daily. 125 ml sodium chloride 9 mg/ml prefilled syringe (20 sources) Start: 3 End: 4 sodium chloride 0.9 % (flush) 10 mL (BD POSIFLUSH) tamsulosin hydrochloride 0.4 mg oral capsule (20 sources) alpha-Adrenergic Meghan Start: 2 End: 4 take 1 capsule by mouth once daily tamsulosin (FLOMAX) 0.4 mg Indications: Nocturia , Screening PSA (prostate specific antigen) , Hematuria, microscopic , Benign prostatic hyperplasia with nocturia Take 1 capsule by mouth once daily. 90 capsule 0 05/04/2022 05/23/2023 Discontinued Start: 03-15-2021 End: 10-27-2021 take 1 capsule by mouth once daily tamsulosin (FLOMAX) 0.4 mg Indications: Benign prostatic hyperplasia with nocturia , Hematuria, microscopic , Screening PSA (prostate specific antigen) , Nocturia Take 1 capsule by mouth once daily. 90 capsule 5 10/27/2021 Active Comment on above: Take 1 capsule by [facility] once daily. tropicamide 10 mg/ml ophthalmic solution (5 sources) Anticholinergic Start: 12-29-2023 End: 12-30-2023 tropicamide 1 % 1 Drop (MYDRIACYL) Start: 12-29-2023 End: 12-30-2023 1 Drop, BOTH EYES, DIRECT ED, Starting on Mon12/29/23 at 1500, Until 12/30/23 at 0259, Administer for dilation, OPHT CLINIC MED ORDERS Start: 07-14-2022 End: 07-15-2022 tropicamide 1 % 1 Drop (MYDR IACYL) Start: 11-05-2021 End: 11-06-2021 tropicamide 1 % 1 Drop (MYDR IACYL) 24 hr venlafaxine 75 mg extended release oral capsule (6 sources) Serotonin and Norepinephrine Reuptake Inhibitor Start: 01-27-2022 End: 03-01-2022 take 1 capsule by mouth once daily at breakfast venlafaxine ER (EFFEXOR XR) 75 mg 24 hr capsule Take 1 capsule by mouth daily with breakfast. 30 capsule 0 01/27/2022 03/01/2022 Discontinued (Discontinued by Patient) Comment on above: Take 1 capsule by mo [facility] daily with breakfast. Problems Active Problems Problem Classification Problem Date Documented Date Episodic/Chronic Acute and unspecified renal failure (20 sources) Acute injury of kidney; Translations: [Acute kidney failure, unspecified] Onset: 2 Resolved: 4 03-30-2022 Episodic Acute myocardial infarction (1 source) Myocardial infarction due to demand ischemia; Translations: [Myocardial infarction type 2] Chronic Alcohol-related disorders (20 sources) Alcohol dependence; Translations: [Alcohol dependence, uncomplicated] Onset: 2 01-18-2022 Chronic Anal and rectal conditions (1 source) Other specified diseases of anus and rectum; Translations: [Anal or rectal pain] 12-23-2022 Episodic Anxiety disorders (20 sources) Mixed anxiety and depressive disorder; Translations: [Anxiety disorder] Onset: 1 05-28-2020 Chronic Anxiety disorders (1 source) Difficulty controlling anger; Translations: [Irritability and anger] Episodic Attention-deficit, conduct, and disruptive behavior disorders (1 source) Oppositional defiant disorder co-occurrent with chronic irritability-anger; Translations: [Oppositional defiant disorder] Chronic Cancer of rectum and anus (14 sources) History of malignant neoplasm of rectum; Translations: [Personal history of other malignant neoplasm of rectum, rectosigmoid junction, and anus] Onset: 5 Episodic Chronic kidney disease (20 sources) Chronic kidney disease stage 3A ; Translations: [Stage 3a chronic kidney disease (HCC)] Onset: 2 Chronic Chronic kidney disease (3 sources) Chronic kidney disease; Translations: [Stage 3a chronic kidney disease (HCC)] Onset: 2 Complications of surgical procedures or medical care (1 source) Infection following a procedure, unspecified, sequela; Translations: [Postoperative infection, unspecified type, sequela] Onset: 5 Episodic Coronary atherosclerosis and other heart disease (1 source) Myocardial ischemia; Translations: [Other forms of acute ischemic heart disease] 10-13-2022 Chronic Deficiency and other anemia (1 source) Anemia, unspecified; Translations: [Anemia, unspecified] Onset: 5 Episodic Diabetes mellitus with complications (20 sources) Peripheral neuropathy with type 2 diabetes; Translations: [Type II diabetes mellitus uncontrolled] Onset: 0 Resolved: 4 02-22-2021 Chronic Diabetes mellitus without complication (20 sources) Type 2 diabetes mellitus without complication; Translations: [Secondary diabetes mellitus] Onset: 0 02-20-2020 Chronic Diabetes mellitus without complication (3 sources) Diabetes mellitus without complication; Translations: [Type 2 diabetes mellitus with stage 3a chronic kidney disease, with long-term current use of insulin (HCC)] Onset: 2 Diseases of mouth; excluding dental (1 source) Dribbling from mouth; Translations: [Drooling] Episodic Disorders of lipid metabolism (20 sources) Mixed hyperlipidemia; Translations: [Mixed hyperlipidemia] Onset: 1 11-06-2020 Chronic Esophageal disorders (20 sources) Barretts esophagus with dysplasia; Translations: [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, unspecified] Onset: 2 Chronic Essential hypertension (20 sources) Hypertensive disorder; Translations: [Essential hypertension] Onset: 1 02-22-2021 Chronic External cause codes: Fall (1 source) Accidental fall ; Translations: [Fall (on) (from) other stairs and steps, initial encounter] Fluid and electrolyte disorders (20 sources) Hyperkalemia; Translations: [Hyperkalemia] Onset: 2 Resolved: 4 Episodic Heart valve disorders (20 sources) Tricuspid valve regurgitation; Translations: [Rheumatic tricuspid insufficiency] Onset: 3 12-23-2022 Chronic Hyperplasia of prostate (20 sources) Benign prostatic hyperplasia; Translations: [Benign prostatic hyperplasia without lower urinary tract symptoms] Onset: 2 Resolved: 4 07-05-2021 Chronic Hypertension with complications and secondary hypertension (20 sources) Hypertensive urgency ; Translations: [Hypertensive urgency] Onset: 3 09-15-2022 Chronic Immunizations and screening for infectious disease (2 sources) Patient encounter status; Translations: [Encounter for immunization] Episodic Mood disorders (20 sources) Severe recurrent major depression without psychotic features; Translations: [Major depressive disorder, recurrent severe without psychotic features] Onset: 1 Resolved: 4 05-28-2020 Chronic Mycoses (1 source) Onychomycosis; Translations: [Tinea unguium] Episodic Nonspecific chest pain (3 sources) Precordial pain; Translations: [Precordial pain] 10-13-2022 Episodic Nutritional deficiencies (20 sources) Vitamin D deficiency; Translations: [Vitamin D deficiency, unspecified] Onset: 0 Resolved: 4 02-20-2020 Chronic Osteoarthritis (20 sources) Arthritis; Translations: [Unspecified osteoarthritis, unspecified site] Onset: 3 09-15-2022 Chronic Osteoarthritis (1 source) Osteoarthritis of joint of left shoulder region; Translations: [Primary osteoarthritis of left shoulder] Other aftercare (3 sources) Post-discharge follow-up; Translations: [Encounter for follow-up examination after completed treatment for conditions other than malignant neoplasm] Episodic Other aftercare (3 sources) 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; Translations: [Type 2 diabetes mellitus with stage 3a chronic kidney disease, with long-term current use of insulin (HCC)] Onset: 2 Episodic Other and unspecified benign neoplasm (1 source) History of polyp of colon; Translations: [Personal history of colonic polyps] 11-04-2022 Episodic Other connective tissue disease (1 source) Muscle pain; Translations: [Myalgia] Episodic Other diseases of kidney and ureters (1 source) Secondary hyperparathyroidism; Translations: [Secondary hyperparathyroidism of renal origin] 06-20-2023 Chronic Other diseases of kidney and ureters (1 source) Hyperparathyroidism due to renal insufficiency; Translations: [Secondary hyperparathyroidism of renal origin] 01-24-2024 Chronic Other diseases of kidney and ureters (1 source) Disorder of kidney and ureter, unspecified; Translations: [Kidney disease] Onset: 5 Episodic Other ear and sense organ disorders (1 source) Tinnitus, bilateral; Translations: [Tinnitus aurium, bilateral] Episodic Other gastrointestinal disorders (2 sources) Diarrhea; Translations: [Diarrhea, unspecified] Episodic Other liver diseases (5 sources) Alkaline phosphatase raised; Translations: [Abnormal levels of other serum enzymes] Episodic Other lower respiratory disease (1 source) Multiple nodules of lung; Translations: [Other nonspecific abnormal finding of lung field] Episodic Other lower respiratory disease (1 source) Nodule of lung; Translations: [Solitary pulmonary nodule] Episodic Other male genital disorders (2 sources) H/O: male genital disorder; Translations: [Personal history of other diseases of male genital organs] Episodic Other nervous system disorders (20 sources) Mixed sensory-motor polyneuropathy; Translations: [Other hereditary and idiopathic neuropathies] Onset: 1 12-09-2020 Chronic Other nervous system disorders (1 source) Other chronic pain; Translations: [Chronic bilateral low back pain with left-sided sciatica] Onset: 1 Chronic Other nervous system disorders (1 source) Chronic pain syndrome; Translations: [Chronic pain syndrome] 12-23-2022 Chronic Other nervous system disorders (1 source) Pain due to neoplastic disease; 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)] 12-23-2022 Chronic Other non-traumatic joint disorders (1 source) Shoulder pain; Translations: [Left shoulder pain, unspecified chronicity] Episodic Other nutritional; endocrine; and metabolic disorders (20 sources) Obese class II; Translations: [Obesity, unspecified] Onset: 0 Resolved: 4 02-20-2020 Chronic Other nutritional; endocrine; and metabolic disorders (1 source) Obesity, unspecified; Translations: [Obesity, Class II, BMI 35-39.9] Onset: 0 Chronic Other nutritional; endocrine; and metabolic disorders (2 sources) Hyperuricemia; Translations: [Hyperuricemia without signs of inflammatory arthritis and tophaceous disease] 01-24-2024 Episodic Other nutritional; endocrine; and metabolic disorders (20 sources) Obese class II; Translations: [Obesity, Class II, BMI 35-39.9] Onset: 0 02-20-2020 Other skin disorders (2 sources) Hidradenitis suppurativa; Translations: [Hidradenitis suppurativa] Episodic Residual codes; unclassified (20 sources) Obstructive sleep apnea syndrome; Translations: [Obstructive sleep apnea (adult) (pediatric)] Onset: 5 Chronic Residual codes; unclassified (1 source) Obstructive sleep apnea (adult) (pediatric); Translations: [MEKHI (obstructive sleep apnea)] Onset: 5 Chronic Residual codes; unclassified (13 sources) Bilateral lower limb edema; Translations: [Localized edema] Episodic Residual codes; unclassified (1 source) Patient's other noncompliance with medication regimen; Translations: [History of medication noncompliance] Onset: 2 Episodic Residual codes; unclassified (1 source) Needs assistance with community resources; Translations: [Other specified health status] Episodic Residual codes; unclassified (1 source) Postprocedural state finding; Translations: [Other specified postprocedural states] 12-08-2023 Episodic Residual codes; unclassified (1 source) Delirium; Translations: [Disorientation, unspecified] Onset: 5 07-20-2024 Episodic Retinal detachments; defects; vascular occlusion; and retinopathy (20 sources) Nonexudative age-related macular degeneration; Translations: [Nonexudative age-related macular degeneration, bilateral, intermediate dry stage] Onset: 3 10-21-2022 Chronic Substance-related disorders (20 sources) Nicotine dependence; Translations: [Nicotine dependence, unspecified, uncomplicated] Onset: 2 03-31-2022 Chronic Substance-related disorders (20 sources) Marijuana user; Translations: [Marijuana use] Onset: 0 02-20-2020 Unclassified (4 sources) Patient encounter status; Translations: [Routine physical examination] Unclassified (1 source) OPENED IN ERROR Unclassified (1 source) Postprocedural state finding 12-13-2023 Unclassified (2 sources) Obesity, Class II, BMI 35-39.9; Translations: [Obesity, Class II, BMI 35-39.9] Onset: 5 Past or Other Problems Problem Classification Problem Date Documented Da te Episodic/Chronic Abdominal pain (20 sources) Abdominal discomfort; Translations: [Unspecified abdominal pain] Onset: 01-18-2022 Resolved: 01-19-2022 01-18-2022 Episodic Administrative/social admission (20 sources) Reduced mobility; Translations: [Legal, financial, employment and/or socioeconomic history finding] Onset: 05-05-2020 Resolved: 06-15-2020 05-05-2020 Episodic Attention-deficit, conduct, and disruptive behavior disorders (20 sources) Conduct disorder; Translations: [Conduct disorder, unspecified] Onset: 09-07-2020 Resolved: 05-25-2023 09-07-2020 Chronic Blindness and vision defects (20 sources) Disorder of refraction; Translations: [Unspecified disorder of refraction] Onset: 10-21-2022 Resolved: 05-25-2023 10-21-2022 Episodic Cancer of bladder (20 sources) H/O: malignant neoplasm; Translations: [Personal history of malignant neoplasm of bladder] Onset: 07-05-2021 07-05-2021 Episodic Cancer of rectum and anus (20 sources) Malignant tumor of rectum; Translations: [Malignant neoplasm of rectum] Onset: 08-04-2020 Resolved: 05-25-2023 08-04-2020 Chronic Cataract (20 sources) Nuclear senile cataract; Translations: [Age-related nuclear cataract, bilateral] Onset: 11-05-2021 Resolved: 05-25-2023 Chronic Conditions associated with dizziness or vertigo (20 sources) Dizziness and giddiness; Translations: [Dizziness] Onset: 02-20-2021 Resolved: 05-25-2023 02-20-2021 Episodic Diabetes mellitus without complication (20 sources) Glycosuria; Translations: [Hyperglycemia] Onset: 01-18-2022 Resolved: 05-25-2023 01-18-2022 Episodic Genitourinary symptoms and ill-defined conditions (20 sources) Microalbuminuria; Translations: [Dysuria] Onset: 02-20-2020 Resolved: 01-17-2022 02-20-2020 Episodic Glaucoma (20 sources) Preglaucoma, unspecified, bilateral; Translations: [Preglaucoma, unspecified] Onset: 11-05-2021 Resolved: 05-25-2023 Chronic Malaise and fatigue (20 sources) Asthenia; Translations: [Weakness] Onset: 05-05-2020 Resolved: 06-15-2020 05-05-2020 Episodic Nausea and vomiting (20 sources) Nausea; Translations: [Nausea and vomiting] Onset: 03-30-2022 Resolved: 05-25-2023 03-30-2022 Episodic Other aftercare (20 sources) Follow-up status; Translations: [Encounter for other specified aftercare] Onset: 05-26-2023 Resolved: 06-11-2023 06-11-2023 Episodic Other bone disease and musculoskeletal deformities (1 source) Segmental and somatic dysfunction of lumbar region; Translations: [Somatic dysfunction of lumbar region] Onset: 10-04-2023 Episodic Other eye disorders (20 sources) Vitreous syneresis; Translations: [Other vitreous opacities, bilateral] Onset: 10-21-2022 Resolved: 05-25-2023 10-21-2022 Chronic Other gastrointestinal disorders (20 sources) Constipation; Translations: [Constipation, unspecified] Onset: 01-18-2022 Resolved: 05-25-2023 01-18-2022 Episodic Other lower respiratory disease (20 sources) Dyspnea on exertion; Translations: [Other forms of dyspnea] Onset: 12-01-2022 Resolved: 05-25-2023 10-13-2022 Episodic Other nervous system disorders (1 source) Other acute postprocedural pain; Translations: [Acute post-operative pain] Onset: 10-04-2023 Episodic Other non-traumatic joint disorders (20 sources) Arthritis of hip; Translations: [Other specified arthritis, left hip] Onset: 09-14-2022 Resolved: 05-25-2023 09-14-2022 Chronic Other non-traumatic joint disorders (20 sources) Hip pain; Translations: [Pain in unspecified hip] Onset: 01-04-2023 Resolved: 05-25-2023 Episodic Other nutritional; endocrine; and metabolic disorders (20 sources) Obese class I; Translations: [Obesity, unspecified] Onset: 05-25-2023 Resolved: 06-11-2023 06-11-2023 Chronic Other screening for suspected conditions (not mental disorders or infectious disease) (15 sources) Viral screening status; Translations: [Serum creatinine raised] Onset: 01-20-2022 Episodic Residual codes; unclassified (20 sources) History of noncompliance with medication regimen; Translations: [Patient's other noncompliance with medication regimen] Onset: 03-08-2021 Resolved: 05-25-2023 03-08-2021 Episodic Skin and subcutaneous tissue infections (20 sources) Abscess of neck; Translations: [Cutaneous abscess of neck] Onset: 06-03-2023 Resolved: 06-11-2023 Episodic Spondylosis; intervertebral disc disorders; other back problems (20 sources) Chronic low back pain; Translations: [Lumbar radiculopathy] Onset: 02-20-2020 02-20-2020 Episodic Substance-related disorders (20 sources) Marijuana user; Translations: [Cannabis use, unspecified, uncomplicated] Onset: 02-20-2020 02-20-2020 Episodic Results Test Name Value Interpretation Reference Range Facility Hemoglobin A1con 10-07-2024 HbA1c (Bld) [Mass fraction] 5.2 % Normal <=5.[address] [facility] Comment on above: Order Comment: 409.1 Result Comment: Norm al < 5.7 % Prediabetic 5.7 - 6.4 % Diabetic >or= 6.5 % Please note range changes. Performed By: #### L 501.9985 #### [facility] [address] [place], [address] Anion gap in Serum or Plasma Ordered By: Citlaly Garcia on 08-28-2024 Anion gap [Moles/Vol] 16 mmol/L High 08-15 [facility] BUN/creatinine ratioOrdered By: Citlaly Garcia on 08-28-2024 Urea nitrogen/Creatinine [Mass ratio] 10.1 mg/mg 01-[address] [facility] Basic Metabolic Profile (BMP )on 08-28-2024 BUN/CRE 10.1 RATIO Normal 01-[address] [facility] Comment on above: Order Comment: 413-1 Performed By: #### L 500.2500, L100.0500 #### [facility] [address] [place], [address] Calcium [Mass/Vol] 9.3 mg/dL Normal 7.6-11.0 [facility] [place] Comment on above: Order Comment: 413-1 Performed By: #### L 500.2500, L100.0500 #### [facility] [address] [place], [address] Chloride [Moles/Vol] 100 mmol/L Normal 98-108 [facility] Comment on above: Order Comment: 413-1 Performed By: #### L 500.2500, L100.0500 #### [facility] [address] [place], [address] CO2 [Moles/Vol] 24.3 mmol/L Normal 21.0-32.[address] [facility] Comment on above: Order Comment: 413-1 Performed By: #### L 500.2500, L100.0500 #### [facility] [address] [place], [address] Creatinine [Mass/Vol] 5.39 mg/dL High 0.70-1.20 [facility] Comment on above: Order Comment: 413-1 Performed By: #### L 500.2500, L100.0500 #### [facility] [address] [place], [address] GAP 16 High 5-[address] [facility] Comment on above: Order Comment: 413-1 Performed By: #### L 500.2500, L100.0500 #### [facility] [address] [place], [address] GFR/1.73 sq M.predicted among non-blacks MDRD (S/P/Bld) [Vol rate/Area] 11 mL/min/{1.73_m2} Low >[address] [facility] Comment on above: Order Comment: 413-1 Result Comment: mL/m in/1.73m2 CKD-EPI Creatinine Equation (2020) Performed By: #### L 500.2500, L100.0500 #### [facility] [address] [place], [address] Glucose [Mass/Vol] 155 mg/dL High 70-99 [facility] [place] Comment on above: Order Comment: 413-1 Performed By: #### L 500.2500, L100.0500 #### [facility] [address] [place], [address] Potassium [Moles/Vol] 4.6 mmol/L Normal 3.3-5.1 [facility] Comment on above: Order Comment: 413-1 Performed By: #### L 500.2500, L100.0500 #### [facility] [address] [place], [address] Sodium [Moles/Vol] 140 mmol/L Normal 133-145 [facility] [place] Comment on above: Order Comment: 413-1 Performed By: #### L 500.2500, L100.0500 #### [facility] [address] [place], [address] Urea nitrogen [Mass/Vol] 54 mg/dL High 4-[address] [facility] Comment on above: Order Comment: 413-1 Performed By: #### L 500.2500, L100.0500 #### [facility] [address] [place], [address] CBC-Complete Blood Cnt No Di ffon 08-28-2024 Erythrocyte distribution width (RBC) [Ratio] 14.4 % Normal 11.6-14.[address] [facility] Comment on above: Order Comment: 413-1 Performed By: #### L 500.2500, L100.0500 #### [facility] [address] [place], [address] Hematocrit (Bld) [Volume fraction] 28.0 % Low 40-[address] [facility] Comment on above: Order Comment: 413-1 Performed By: #### L 500.2500, L100.0500 #### [facility] [address] [place], [address] Hemoglobin (Bld) [Mass/Vol] 8.9 g/dL Low 13.0-16.[address] [facility] Comment on above: Order Comment: 413-1 Performed By: #### L 500.2500, L100.0500 #### [facility] [address] [place], [address] MCH (RBC) [Entitic mass] 29.5 pg Normal 27.0-32.[address] [facility] Comment on above: Order Comment: 413-1 Performed By: #### L 500.2500, L100.0500 #### [facility] [address] [place], [address] MCHC (RBC) [Mass/Vol] 31.8 g/dL Low 32-36 [facility] Comment on above: Order Comment: 413-1 Performed By: #### L 500.2500, L100.0500 #### [facility] [address] [place], [address] MCV (RBC) [Entitic vol] 92.7 fL Normal 80-[address] [facility] Comment on above: Order Comment: 413-1 Performed By: #### L 500.2500, L100.0500 #### [facility] [address] [place], [address] Platelet mean volume (Bld) [Entitic vol] 9.4 fL Normal 6.2-12.[address] [facility] Comment on above: Order Comment: 413-1 Performed By: #### L 500.2500, L100.0500 #### [facility] [address] [place], [address] Platelets (Bld) [#/Vol] 263 10*3/uL Normal 150-[address] [facility] Comment on above: Order Comment: 413-1 Performed By: #### L 500.2500, L100.0500 #### [facility] [address] [place], [address] RBC (Bld) [#/Vol] 3.02 10*6/uL Low 4.6-6.2 [facility] Comment on above: Order Comment: 413-1 Performed By: #### L 500.2500, L100.0500 #### [facility] [address] [place], [address] RDW SD 49.1 fl High 35.1-43.[address] [facility] Comment on above: Order Comment: 413-1 Performed By: #### L 500.2500, L100.0500 #### [facility] [address] [place], [address] WBC (Bld) [#/Vol] 6.7 10*3/uL Normal 4.4-11.0 [facility] Comment on above: Order Comment: 413-1 Performed By: #### L 500.2500, L100.0500 #### [facility] [address] [place], [address] Carbon dioxide, total [Moles /volume] in Central venous bloodOrdered By: Citlaly Garcia on 08-28-2024 CO2 [Moles/Vol] 24.3 mmol/L 21.0-32.[address] [facility] Chloride assayOrdered By: Lambert Garcia on 08-28-2024 Chloride [Moles/Vol] 100 mmol/L 98-108 [facility] Erythrocyte distribution wid th ratioOrdered By: Citlaly Garcia on 08-28-2024 Erythrocyte distribution width (RBC) [Ratio] 14.4 % 11.6-14.[address] [facility] Erythrocyte distribution wid th standard deviationOrdered By: Citlaly Garcia on 08-28-2024 Erythrocyte distribution width (RBC) [Ratio] 49.1 fl High 35.1-43.[address] [facility] Glomerular filtration rate ( GFR) estimation/1.73 sq m using serum, plasma, or whole bOrdered By: Citlaly Garcia on 08-28-2024 GFR/1.73 sq M.predicted among non-blacks MDRD (S/P/Bld) [Vol rate/Area] 11 mL/min/{1.73_m2} Low >[address] [facility] Comment on above: mL/min/1.73m2 CKD-EP I Creatinine Equation (2020) Hematocrit Auto (Bld) [Volum e fraction]Ordered By: Citlaly Garcia on 08-28-2024 Hematocrit (Bld) [Volume fraction] 28.0 % Low 40-[address] [facility] Hemoglobin measurementOrdere d By: Citlaly Garcia on 08-28-2024 Hemoglobin (Bld) [Mass/Vol] 8.9 g/dL Low 13.0-16.[address] [facility] MCV (mean corpuscular volume ) determinationOrdered By: Citlaly Garcia on 08-28-2024 MCV (RBC) [Entitic vol] 92.7 fL 80-[address] [facility] Mean corpuscular hemoglobin (MCH) determinationOrdered By: Citlaly Garcia on 08-28-2024 MCH (RBC) [Entitic mass] 29.5 pg 27.0-32.[address] [facility] Mean corpuscular hemoglobin concentration (MCHC) determinationOrdered By: Citlaly Garcia on 08-28-2024 MCHC (RBC) [Mass/Vol] 31.8 g/dL Low 32-36 [facility] Mean platelet volume determi nationOrdered By: Citlaly Garcia on 08-28-2024 Platelet mean volume (Bld) [Entitic vol] 9.4 fL 6.2-12.[address] [facility] Platelet countOrdered By: Lambert Garcia on 08-28-2024 Platelets (Bld) [#/Vol] 263 10*3/uL 150-[address] [facility] Potassium measurement (mass/ volume)Ordered By: Citlaly Garcia on 08-28-2024 Potassium (Unsp spec) [Mass/Vol] 4.6 mmol/L 3.3-5.[address] [facility] RBC Auto (Bld) [#/Vol]Ordere d By: Citlaly Garcia on 08-28-2024 RBC (Bld) [#/Vol] 3.02 10*6/uL Low 4.6-6.2 [facility] Serum creatinine measurement (mass/volume)Ordered By: Citlaly Garcia on 08-28-2024 Creatinine [Mass/Vol] 5.39 mg/dL High 0.70-1.20 [facility] Serum glucose measurement (m ass/volume)Ordered By: Citlaly Garcia on 08-28-2024 Glucose [Mass/Vol] 155 mg/dL High 70-99 [facility] Serum or plasma calcium patt urement (mass/volume)Ordered By: Citlaly Garcia on 08-28-2024 Calcium [Mass/Vol] 9.3 mg/dL 7.6-11.0 [facility] Serum or plasma urea nitroge n measurement (mass/volume)Ordered By: Citlaly Garcia on 08-28-2024 Urea nitrogen [Mass/Vol] 54 mg/dL High 4-[address] [facility] Sodium levelOrdered By: Jd Garcia on 08-28-2024 Sodium [Moles/Vol] 140 mmol/L 133-145 [facility] White blood cell (WBC) count Ordered By: Citlaly Garcia on 08-28-2024 WBC (Bld) [#/Vol] 6.7 10*3/uL 4.4-11.0 [facility] CASE MANAGEMon 07-24-2024 CASE MANAGEM Normal [facility] CASE MANAGEM Normal [facility] CASE MANAGEM Normal [facility] CBC panel Auto (Bld)on 07-24 Erythrocyte distribution width (RBC) [Ratio] 13.2 % Normal 11.5-15.0 [facility] Comment on above: Order Comment: Speci men Type: BLOOD SPECIMENOrdering Facility: [facility] Address: [address] [place] [address] Performed By: #### 5 8410-2 ####[facility] [id number] [place] [id number] [place] Hematocrit (Bld) [Volume fraction] 26.9 % Low 39.0-51.0 [facility] Comment on above: Order Comment: Speci men Type: BLOOD SPECIMENOrdering Facility: [facility] Address: [address] [place] [address] Performed By: #### 5 8410-2 ####[facility] [id number] [address] Hemoglobin (Bld) [Mass/Vol] 8.8 g/dL Low 13.0-17.0 [facility] Comment on above: Order Comment: Speci men Type: BLOOD SPECIMENOrdering Facility: [facility] Address: [address] [place] [address] Performed By: #### 5 8410-2 ####[facility] [id number] [address] MCH (RBC) [Entitic mass] 28.5 pg Normal 26.0-34.0 [facility] Comment on above: Order Comment: Speci men Type: BLOOD SPECIMENOrdering Facility: [facility] Address: [address] [place] [address] Performed By: #### 5 8410-2 ####[facility]ORY[facility] [id number] [address] MCHC (RBC) [Mass/Vol] 32.7 g/dL Normal 30.5-36.0 [facility] Comment on above: Order Comment: Speci men Type: BLOOD SPECIMENOrdering Facility: [facility] Address: [address] [place] [address] Performed By: #### 5 8410-2 ####[facility] [id number] [address] MCV (RBC) [Entitic vol] 87.1 fL Normal 80.0-100.0 [facility] Comment on above: Order Comment: Speci men Type: BLOOD SPECIMENOrdering Facility: [facility] Address: [address] [place] [address] Performed By: #### 5 8410-2 ####[facility]ORYCL[facility] [id number] [address] Nucleated RBC (Bld) [#/Vol] 10*3/uL Normal <0.01 [facility] Comment on above: Order Comment: Speci men Type: BLOOD SPECIMENOrdering Facility: [facility] Address: [address] [place] [address] Performed By: #### 5 8410-2 ####[facility]ORYCL[facility] [id number] [place] [id number] [place] Platelet mean volume (Bld) [Entitic vol] 9.2 fL Normal 9.0-12.7 [facility] Comment on above: Order Comment: Speci men Type: BLOOD SPECIMENOrdering Facility: [facility] Address: [address] [place] [address] Performed By: #### 5 8410-2 ####[facility]ORYCL[facility] [id number] [place] [address] [place] Platelets (Bld) [#/Vol] 168 10*3/uL Normal 150-400 [facility] Comment on above: Order Comment: Speci men Type: BLOOD SPECIMENOrdering Facility: [facility] Address: [address] [place] [address] Performed By: #### 5 8410-2 ####[facility]ORYCLIA [id number] [place] [address] [place] RBC (Bld) [#/Vol] 3.09 10*6/uL Low 4.20-6.00 [facility] Comment on above: Order Comment: Speci men Type: BLOOD SPECIMENOrdering Facility: [facility] Address: [address] [place] [address] Performed By: #### 5 8410-2 ####[facility] LABORATORYCLIA [id number] [place] [id number] [place] WBC (Bld) [#/Vol] 6.64 10*3/uL Normal 3.70-11.00 [facility] Comment on above: Order Comment: Speci men Type: BLOOD SPECIMENOrdering Facility: [facility] Address: [facility] [place] [address] Performed By: #### 5 8410-2 ####ADKINS LABORATORYCLIA [id number] [place] [id number] [place] CNDSon 07-24-2024 [facility] Telephone (HCSIND) -- JOSÉ MANUEL ASHTON ([id number]) 1960 M [facility] Date Time Provider Department 07/24/24 CLAUDIA CHOW HCSIND During your visit today, we recorded the following information about you: Claudia Chow LPN 07/24/2024 11:48 AM Signed Hi, Pt d/c to a SNF. Referral discarded. Thank you, Claudia Chow LPN Allergies As of Date: 07/24/2024 Noted Allergy Reaction PENICILLINS 07/24/2020 16 - Unknown Comments: Pt states he thinks he had a reaction as a child Date Reviewed: 07/24/2024 Reviewed by: Trudy Coates, LEATHA - Fully Assessed Reason for Visit: Home Care [4073] Cmt: Referral discarded Prescriptions as of 07/24/2024 - heparin 1,000 unit/mL soln Inject 3.6 mL intravenously as needed (To close HD catheter. Fill each lumen to prescribed volume.). - sodium zirconium cyclosilicate (LOKELMA) 5 gram oral packet Take 3 packets by mouth once daily. - doxazosin (CARDURA) 2 mg tablet Take 1 tablet by mouth daily at bedtime. - hydrALAZINE (APRESOLINE) 50 mg tablet Take 1 tablet by mouth two times a day. - insulin glargine U-300 conc (TOUJEO SOLOSTAR U-300 INSULIN) 300 unit/mL (1.5 mL) Inject 18 Units subcutaneously every morning. - oxyCODONE IR (ROXICODONE) 10 mg tab Take 10 mg by mouth every 6 hours. - ergocalciferol 50,000 unit capsule (VITAMIN D2, DRISDOL) Take 1 capsule by mouth one time a week. - dapagliflozin propanediol (FARXIGA) 10 mg tablet Take 1 tablet by mouth daily with breakfast. - diazePAM (VALIUM) 10 mg tablet Take 10 mg by mouth two times a day as needed for anxiety. - insulin lispro (HUMALOG KWIKPEN INSULIN) 100 unit/mL Inject 8 Units subcutaneously three times a day before meals. SLIDING SCALE: bld sugar 60-124=0 units 125-150=2 units, 151-200=4 units, 201-250=6 untis 251-300=8 units, 301-350=10 units, 351-400=12 units - amLODIPine (NORVASC) 5 mg tablet Take 1 tablet by mouth two times a day. - carvedilol (COREG) 25 mg tablet Take 1 tablet by mouth two times a day with meals. - cyclobenzaprine (FLEXERIL) 10 mg tablet Take 1 tablet by mouth three times a day as needed for muscle spasm. - pantoprazole DR (PROTONIX) 40 mg tablet Take 1 tablet by mouth once daily. - DULoxetine (CYMBALTA) 30 mg capsule Take 1 capsule by mouth once daily. - insulin lispro (HUMALOG KWIKPEN) 100 unit/mL Inject 8 Units subcutaneously three times a day before meals. - pen needle,diabetic dual safty (BD AUTOSHIELD DUO PEN NEEDLE) 30 gauge x 3/16" ndle 1 Applicator four times daily. Facility-Administered Medications as of 07/24/2024 - QUEtiapine 12.5 mg tab(s) (SEROquel) - heparin 1,000 unit/mL 3,600 Units injection - insulin glargine 18 Units pen (long acting) - hydrALAZINE 50 mg tab(s) (APRESOLINE) - oxyCODONE IR 10 mg tab(s) (ROXICODONE) - diazePAM 10 mg tab(s) (VALIUM) - amLODIPine 5 mg tab(s) (NORVASC) - carvedilol 25 mg tab(s) (COREG) - pantoprazole DR 40 mg tab(s) (PROTONIX) - DULoxetine 30 mg cap(s) (CYMBALTA) - cyclobenzaprine 10 mg tab(s) (FLEXERIL) - dextrose 40 % 15 g - glucagon 1 mg injection - dextrose 10% iv bolus - NaCl 0.9% iv flush bag - ondansetron orally disintegrating 4 mg tab(s) (ZOFRAN ODT) - ondansetron (PF) 4 mg injection (ZOFRAN) - aluminum-magnesium hydroxide-simethicone 200-200-20 mg/5 mL 30 mL - docusate sodium 100 mg cap(s) (COLACE) - magnesium hydroxide 400 mg/5 mL 30 mL (MOM) - acetaminophen 650 mg tab(s) (TYLENOL) - insulin lispro injection (rapid acting) (ADMElog) - insulin lispro injection (rapid acting) (ADMElog) Meds Comments as of 11/15/2023: SEE EMAR FOR MEDICATIONS TAKEN LAST 04/19/21 07/31/20 The medications are managed by this patient by: PATIENT Miranda Lewis, OA 11/08/[address] Scott: "Patient to continue to use the SSI only, no regular scheduled Insulin dosing at this time." Patient's sister has been notified and verbalizes understanding." Richard Hinds RN Problem List As Of Date 07/24/2024 Noted Resolved Vitamin D deficiency [E55.9] 02/20/2020 Marijuana use [F12.90] 02/20/2020 Microalbuminuria [R80.9] 02/20/2020 Obesity, Class II, BMI 35-39.9 [E66.812] 02/20/2020 05/25/2023 Chronic bilateral low back pain [M54.50, G89.29]02/20/2020 Weakness [R53.1] 05/05/2020 06/15/2020 Decreased mobility and endurance [Z74.09] 05/05/2020 06/15/2020 Severe episode of recurrent major depressive di*05/28/2020 05/25/2023 Malignant neoplasm of rectum (HCC) [C20] 08/04/2020 05/25/2023 Conduct disorder [F91.9] 09/07/2020 05/25/2023 Spinal stenosis of lumbar region with neurogeni*11/06/2020 Mixed hyperlipidemia [E78.2] 11/06/2020 HTN (hypertension) [I10] 11/06/2020 Generalized anxiety disorder [F41.1] 11/19/2020 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 Normal [facility] CONSULT PROGon 07-24-2024 CONSULT PROG Normal [facility] Comprehensive metabolic 2000 panelon 07-24-2024 Albumin [Mass/Vol] 3.2 g/dL Low 3.9-4.9 [facility] Comment on above: Order Comment: Speci men Type: BLOOD SPECIMENOrdering Facility: [facility] Address: [address] [place] [address] Performed By: #### 5 0190-8, 6-4, 03818-1 ####[facility] LABORATORYCLIA [id number] [place] [address] [place] [facility] ALP [Catalytic activity/Vol] 107 U/L Normal 38-113 [facility] Comment on above: Order Comment: Speci men Type: BLOOD SPECIMENOrdering Facility: [facility] Address: [address] [place] [address] Performed By: #### 5 0190-8, 2275-4, 04807-7 ####[facility] LABORATORYCLIA [id number] [address] [place] [facility] ALT [Catalytic activity/Vol] 17 U/L Normal 10-54 [facility] Comment on above: Order Comment: Speci men Type: BLOOD SPECIMENOrdering Facility: [facility] Address: [address] [place] [address] Performed By: #### 5 0190-8, 2275-4, 32359-2 ####[facility] LABORATORYCLIA [id number] [place] [id number] [place] [facility] Anion gap [Moles/Vol] 13 mmol/L Normal 8-15 [facility] Comment on above: Order Comment: Speci men Type: BLOOD SPECIMENOrdering Facility: [facility] Address: [address] [place] [address] Performed By: #### 5 0190-8, 6-4, 38756-9 ####[facility] LABORATORYCLIA [id number] [place] [address] [place] AST [Catalytic activity/Vol] 16 U/L Normal 14-40 [facility] Comment on above: Order Comment: Speci men Type: BLOOD SPECIMENOrdering Facility: [facility] Address: [address] [place] [address] Performed By: #### 5 0190-8, 2275-07, ####ADKINS LABORATORYCLIA [id number] [place] [address] [place] Bilirubin [Mass/Vol] 0.2 mg/dL Normal 0.2-1.3 [facility] Comment on above: Order Comment: Speci men Type: BLOOD SPECIMENOrdering Facility: [facility] Address: [address] [place] [address] Performed By: #### 5 0190-8, 2275-07, ####ADKINS LABORATORYCLIA [id number] [place] [address] [place] Calcium [Mass/Vol] 8.7 mg/dL Normal 8.5-10.2 [facility] Comment on above: Order Comment: Speci men Type: BLOOD SPECIMENOrdering Facility: [facility] Address: [facility] [place] [address] Performed By: #### 5 0190-8, 2275-07, ####ADKINS LABORATORYCLIA [id number] [place] [address] [place] Chloride [Moles/Vol] 99 mmol/L Normal 98-107 [facility] Comment on above: Order Comment: Speci men Type: BLOOD SPECIMENOrdering Facility: [facility] Address: [address] [place] [address] Performed By: #### 5 0190-8, 2275-07, ####ADKINS LABORATORYCLIA [id number] [place] [address] [place] CO2 [Moles/Vol] 26 mmol/L Normal 22-30 [facility] Comment on above: Order Comment: Speci men Type: BLOOD SPECIMENOrdering Facility: [facility] Address: [facility] [place] [address] Performed By: #### 5 0190-8, 2275-4, 44350-5 ####[facility] LABORATORYCLIA [id number] [place] [address] [place] Creatinine [Mass/Vol] 4.85 mg/dL High 0.73-1.22 [facility] Comment on above: Order Comment: Luz vaughan Type: BLOOD SPECIMENOrdering Facility: [facility] Address: [address] [place] [address] Performed By: #### 5 0190-8, 2276-4, 47218-9 ####[facility] LABORATORYCLIA [id number] [place] [address] [place] Creatinine and Glomerular filtration rate.predicted panel (S/P/Bld) 13 mL/min/1.73m??? Low >=60 [facility] Comment on above: Order Comment: Brooks clement Type: BLOOD SPECIMENOrdering Facility: [facility] Address: [address] [place] [address] Result Comment: Breanne mated Glomerular Filtration Rate (eGFR) is calculated using the 2020 CKD-EPI creatinine equation. This equation utilizes serum creatinine, sex, and age as parameters. The creatinine assay has traceable calibration to isotope dilution-mass spectrometry. Refer to KDIGO guidelines for clinical interpretation. In patients with unstable renal function, e.g. those with acute kidney injury, the eGFR may not accurately reflect actual GFR. Performed By: #### 5 0190-8, 6-4, 54771-2 ####[facility] LABORATORYCLIA [id number] [place] [address] [place] Glucose [Mass/Vol] 153 mg/dL High 74-99 [facility] Comment on above: Order Comment: Luz clement Type: BLOOD SPECIMENOrdering Facility: [facility] Address: [address] [place] [address] Result Comment: The [place] Diabetes [employer] (ADA) provides guidance for cutoff values for fasting glucose and random glucose. The ADA defines fasting as no caloric intake for at least 8 hours. Fasting plasma glucose results between 100 to 125 mg/dL indicate increased risk for diabetes (prediabetes).Fasting plasma glucose results greater than or equal to 126 mg/dL meet the criteria for diagnosis of diabetes. In the absence of unequivocal hyperglycemia, results should be confirmed by repeat testing. In a patient with classic symptoms of hyperglycemia or hyperglycemic crisis, random plasma glucose results greater than or equal to 200 mg/dL meet the criteria for diagnosis of diabetes.Reference: Standards of Medical Care in Diabetes 2016, [place] [employer]. Diabetes Care. 2016.39(Suppl 1). Performed By: #### 5 0190-8, 2275-4, 60165-3 ####ADKINS LABORATORYCLIA [id number] [place] [address] [place] Potassium [Moles/Vol] 4.7 mmol/L Normal 3.7-5.1 [facility] Comment on above: Order Comment: Luz vaughan Type: BLOOD SPECIMENOrdering Facility: [facility] Address: [address] [place] [address] Performed By: #### 5 0190-8, 4, 63615-5 ####ADKINS LABORATORYCLIA [id number] [place] [address] [place] Protein [Mass/Vol] 6.2 g/dL Low 6.3-8.0 [facility] Comment on above: Order Comment: Brooksi clement Type: BLOOD SPECIMENOrdering Facility: [facility] Address: [address] [place] [address] Performed By: #### 5 0190-8, 2275-07, 66983-8 ####ADK[facility] LABORATORYCLIA [id number] [place] [address] [place] Sodium [Moles/Vol] 138 mmol/L Normal 136-144 [facility] Comment on above: Order Comment: Brooksi men Type: BLOOD SPECIMENOrdering Facility: [facility] Address: [address] [place] [address] Performed By: #### 5 0190-8, 2275-07, 62271-5 ####ADKINS LABORATORYCLIA [id number] [place] [address] [place] Urea nitrogen [Mass/Vol] 48 mg/dL High 9-24 [facility] Comment on above: Order Comment: Brooksi men Type: BLOOD SPECIMENOrdering Facility: [facility] Address: [address] [place] [address] Performed By: #### 5 0190-8, 2275-4, 38229-1 ####ADKINS LABORATORYCLIA [id number] [place] [id number] [place] Ferritin SerPl-mCncon 2024 Ferritin [Mass/Vol] 377.6 ng/mL Normal 30.3-565.7 [facility] Comment on above: Order Comment: Speci men Type: BLOOD SPECIMENOrdering Facility: [facility] Address: [address] [place] [address] Performed By: #### 5 0190-8, 2275-4, 92279-6 ####ADKINS LABORATORYCLIA [id number] [place] [id number] [place] Iron and Iron binding capaci ty panelon 07-24-2024 Iron [Mass/Vol] 31 ug/dL Low 41-186 [facility] Comment on above: Order Comment: Speci men Type: BLOOD SPECIMENOrdering Facility: [facility] Address: [address] [place] [address] Performed By: #### 5 0190-8, 4, 39166-3 ####ADKINS LABORATORYCLIA [id number] [place] [address] [place] Iron binding capacity [Mass/Vol] 140 ug/dL Low 232-386 [facility] Comment on above: Order Comment: Speci men Type: BLOOD SPECIMENOrdering Facility: [facility] Address: [address] [place] [address] Performed By: #### 5 0190-8, 2275-07, 85763-3 ####ADKINS LABORATORYCLIA [id number] [place] [address] [place] Iron/TIBC [Molar ratio] 22.1 % Normal 15.0-57.0 [facility] Comment on above: Order Comment: Speci men Type: BLOOD SPECIMENOrdering Facility: [facility] Address: [address] [place] [address] Performed By: #### 5 0190-8, 2275-4, 72899-0 ####ADKINS LABORATORYCLIA [id number] [address] [place] NURSING PROGon 07-24-2024 NURSING PROG Normal [facility] NUTRITIONon 07-24-2024 NUTRITION Normal [facility] CASE MANAGEMon 07-23-2024 CASE MANAGEM Normal [facility] CASE MANAGEM Normal [facility] CBC panel Auto (Bld)on 07-23 Erythrocyte distribution width (RBC) [Ratio] 13.1 % Normal 11.5-15.0 [facility] Comment on above: Order Comment: Speci men Type: BLOOD SPECIMENOrdering Facility: [facility] Address: [address] [place] [address] Performed By: #### 5 8410-2 ####ADKINS LABORATORYCLIA [id number] [address] Hematocrit (Bld) [Volume fraction] 27.2 % Low 39.0-51.0 [facility] Comment on above: Order Comment: Speci men Type: BLOOD SPECIMENOrdering Facility: [facility] Address: [address] [place] [address] Performed By: #### 5 8410-2 ####ADK[facility] LABORATORYCLIA [id number] [address] [place] Hemoglobin (Bld) [Mass/Vol] 8.9 g/dL Low 13.0-17.0 [facility] Comment on above: Order Comment: Speci men Type: BLOOD SPECIMENOrdering Facility: [facility] Address: [address] [place] [address] Performed By: #### 5 8410-2 ####ADK[facility] LABORATORYCLIA [id number] [address] [place] MCH (RBC) [Entitic mass] 28.5 pg Normal 26.0-34.0 [facility] Comment on above: Order Comment: Speci men Type: BLOOD SPECIMENOrdering Facility: [facility] Address: [address] [place] [address] Performed By: #### 5 8410-2 ####ADK[facility] LABORATORYCLIA [id number] [address] [place] MCHC (RBC) [Mass/Vol] 32.7 g/dL Normal 30.5-36.0 [facility] Comment on above: Order Comment: Speci men Type: BLOOD SPECIMENOrdering Facility: [facility] Address: [facility] [place] [address] Performed By: #### 5 8410-2 ####ADK[facility] LABORATORYCLIA [id number] [place] [address] [place] MCV (RBC) [Entitic vol] 87.2 fL Normal 80.0-100.0 [facility] Comment on above: Order Comment: Speci men Type: BLOOD SPECIMENOrdering Facility: [facility] Address: [address] [place] [address] Performed By: #### 5 8410-2 ####ADKINS LABORATORYCLIA [id number] [place] [address] [place] Nucleated RBC (Bld) [#/Vol] 10*3/uL Normal <0.01 [facility] Comment on above: Order Comment: Speci men Type: BLOOD SPECIMENOrdering Facility: [facility] Address: [address] [place] [address] Performed By: #### 5 8410-2 ####ADK[facility] LABORATORYCLIA [id number] [place] [address] [place] Platelet mean volume (Bld) [Entitic vol] 9.5 fL Normal 9.0-12.7 [facility] Comment on above: Order Comment: Speci men Type: BLOOD SPECIMENOrdering Facility: [facility] Address: [address] [place] [address] Performed By: #### 5 8410-2 ####[facility] LABORATORYCLIA [id number] [place] [address] [place] Platelets (Bld) [#/Vol] 146 10*3/uL Low 150-400 [facility] Comment on above: Order Comment: Speci men Type: BLOOD SPECIMENOrdering Facility: [facility] Address: [address] [place] [address] Performed By: #### 5 8410-2 ####[facility] LABORATORYCLIA [id number] [place] [address] [place] [facility] [place] RBC (Bld) [#/Vol] 3.12 10*6/uL Low 4.20-6.00 [facility] Comment on above: Order Comment: Speci men Type: BLOOD SPECIMENOrdering Facility: [facility] Address: [address] [place] [address] Performed By: #### 5 8410-2 ####[facility] LABORATORYCLIA [id number] [place] [address] [place] WBC (Bld) [#/Vol] 4.90 10*3/uL Normal 3.70-11.00 [facility] Comment on above: Order Comment: Speci men Type: BLOOD SPECIMENOrdering Facility: [facility] Address: [address] [place] [address] Performed By: #### 5 8410-2 ####[facility] LABORATORYCLIA [id number] [address] CONSULT PROGon 07-23-2024 CONSULT PROG Normal [facility] Comprehensive metabolic 2000 panelon 07-23-2024 Albumin [Mass/Vol] 3.0 g/dL Low 3.9-4.9 [facility] Comment on above: Order Comment: Speci men Type: BLOOD SPECIMENOrdering Facility: [facility] Address: [address] [place] [address] Performed By: #### 2 4323-8 ####AD[facility] LABORATORYCLIA [id number] [address] [place] ALP [Catalytic activity/Vol] 104 U/L Normal 38-113 [facility] Comment on above: Order Comment: Speci men Type: BLOOD SPECIMENOrdering Facility: [facility] Address: [address] [place] [address] Performed By: #### 2 4323-8 ####[facility] LABORATORYCLIA [id number] [address] ALT [Catalytic activity/Vol] 13 U/L Normal 10-54 [facility] Comment on above: Order Comment: Speci men Type: BLOOD SPECIMENOrdering Facility: [facility] Address: [address] [place], [place] [address] Performed By: #### 2 4323-8 ####[facility] LABORATORYCLIA [id number] [place] [address] [place] Anion gap [Moles/Vol] 10 mmol/L Normal 8-15 [facility] Comment on above: Order Comment: Speci men Type: BLOOD SPECIMENOrdering Facility: [facility] Address: [address] [place] [address] Performed By: #### 2 4323-8 ####[facility] LABORATORYCLIA [id number] [place] [address] [place] AST [Catalytic activity/Vol] 16 U/L Normal 14-40 [facility] Comment on above: Order Comment: Speci men Type: BLOOD SPECIMENOrdering Facility: [facility] Address: [address] [place] [address] [place] [address] Performed By: #### 2 4323-8 ####ADK[facility] LABORATORYCLIA [id number] [place] [address] [place] Bilirubin [Mass/Vol] 0.3 mg/dL Normal 0.2-1.3 [facility] Comment on above: Order Comment: Speci men Type: BLOOD SPECIMENOrdering Facility: [facility] Address: [facility] [place] [address] Performed By: #### 2 4323-8 ####AD[facility] LABORATORYCLIA [id number] [address] [place] Calcium [Mass/Vol] 8.3 mg/dL Low 8.5-10.2 [facility] Comment on above: Order Comment: Speci men Type: BLOOD SPECIMENOrdering Facility: [facility] Address: [address] [place] [address] Performed By: #### 2 4323-8 ####ADK[facility] LABORATORYCLIA [id number] [place] [address] [place] Chloride [Moles/Vol] 98 mmol/L Normal 98-107 [facility] Comment on above: Order Comment: Speci men Type: BLOOD SPECIMENOrdering Facility: [facility] Address: [facility] [place] [address] Performed By: #### 2 4323-8 ####ADKINS LABORATORYCLIA [id number] [address] [place] CO2 [Moles/Vol] 28 mmol/L Normal 22-30 [facility] Comment on above: Order Comment: uLz men Type: BLOOD SPECIMENOrdering Facility: [facility] Address: [address] [place] [address] Performed By: #### 2 4323-8 ####[facility] LABORATORYCLIA [id number] [address] STATES [facility] Creatinine [Mass/Vol] 3.84 mg/dL High 0.73-1.22 [facility] Comment on above: Order Comment: Brooksi men Type: BLOOD SPECIMENOrdering Facility: [facility] Address: [address] [place] [address] Performed By: #### 2 4323-8 ####[facility] LABORATORYCLIA [id number] [address] Creatinine and Glomerular filtration rate.predicted panel (S/P/Bld) 17 mL/min/1.73m??? Low >=60 [facility] Comment on above: Order Comment: Brooksi men Type: BLOOD SPECIMENOrdering Facility: [facility] Address: [address] [place] [address] Result Comment: Breanne mated Glomerular Filtration Rate (eGFR) is calculated using the 2020 CKD-EPI creatinine equation. This equation utilizes serum creatinine, sex, and age as parameters. The creatinine assay has traceable calibration to isotope dilution-mass spectrometry. Refer to KDIGO guidelines for clinical interpretation. In patients with unstable renal function, e.g. those with acute kidney injury, the eGFR may not accurately reflect actual GFR. Performed By: #### 2 4323-8 ####[facility] LABORATORYCLIA [id number] [place] [id number] [place] Glucose [Mass/Vol] 153 mg/dL High 74-99 [facility] Comment on above: Order Comment: Luz clement Type: BLOOD SPECIMENOrdering Facility: [facility] Address: [address] [place] [address] Result Comment: The [place] Diabetes [employer] (ADA) provides guidance for cutoff values for fasting glucose and random glucose. The ADA defines fasting as no caloric intake for at least 8 hours. Fasting plasma glucose results between 100 to 125 mg/dL indicate increased risk for diabetes (prediabetes).Fasting plasma glucose results greater than or equal to 126 mg/dL meet the criteria for diagnosis of diabetes. In the absence of unequivocal hyperglycemia, results should be confirmed by repeat testing. In a patient with classic symptoms of hyperglycemia or hyperglycemic crisis, random plasma glucose results greater than or equal to 200 mg/dL meet the criteria for diagnosis of diabetes.Reference: Standards of Medical Care in Diabetes 2016, [place] [employer]. Diabetes Care. 2016.39(Suppl 1). Performed By: #### 2 4323-8 ####[facility] LABORATORYCLIA [id number] [place] [address] [place] Potassium [Moles/Vol] 4.2 mmol/L Normal 3.7-5.1 [facility] Comment on above: Order Comment: Luz vaughan Type: BLOOD SPECIMENOrdering Facility: [facility] Address: [address] [place] [address] Performed By: #### 2 4323-8 ####[facility] LABORATORYCLIA [id number] [place] [address] [place] Protein [Mass/Vol] 6.1 g/dL Low 6.3-8.0 [facility] Comment on above: Order Comment: Luz vaughan Type: BLOOD SPECIMENOrdering Facility: [facility] Address: [address] [place] [address] Performed By: #### 2 4323-8 ####[facility] LABORATORYCLIA [id number] [place] [address] [place] Sodium [Moles/Vol] 136 mmol/L Normal 136-144 [facility] Comment on above: Order Comment: Luz vaughan Type: BLOOD SPECIMENOrdering Facility: [facility] Address: [address] [place] [address] Performed By: #### 2 4323-8 ####ADKINS LABORATORYCLIA [id number] [place] [address] [place] Urea nitrogen [Mass/Vol] 31 mg/dL High 9-24 [facility] Comment on above: Order Comment: Speci men Type: BLOOD SPECIMENOrdering Facility: [facility] Address: [address] [place] [address] Performed By: #### 2 4323-8 ####ADKINS LABORATORYCLIA [id number] [address] [place] THERAPY NTon 07-23-2024 THERAPY NT Normal [facility] THERAPY NT Normal [facility] THERAPY NT Normal [facility] Urinalysis complete panel (U )on 07-23-2024 Bilirubin Ql (U) Negative Normal Negative [facility] Comment on above: Order Comment: Speci men Type: URINE SPECIMENOrdering Facility: [facility] Address: [address] [place] [address] Performed By: #### 2 4356-8 ####ADKINS LABORATORYCLIA [id number] [address] Clarity (Unsp spec) Slightly Cloudy Abnormal Clear [facility] Comment on above: Order Comment: Speci men Type: URINE SPECIMENOrdering Facility: [facility] Address: [address] [place] [address] Performed By: #### 2 4356-8 ####ADKINS LABORATORYCLIA [id number] [address] STATES [facility] Color (U) Yellow Normal Yellow [facility] Comment on above: Order Comment: Speci men Type: URINE SPECIMENOrdering Facility: [facility] Address: [address] [place] [address] Performed By: #### 2 4356-8 ####ADKINS LABORATORYCLIA [id number] [place] [id number] [place] [facility] [place] Glucose Test strip (U) [Mass/Vol] 1+ Abnormal Negative [facility] Comment on above: Order Comment: Speci men Type: URINE SPECIMENOrdering Facility: [facility] Address: [address] [place] [address] Performed By: #### 2 4356-8 ####ADKINS LABORATORYCLIA [id number] [place] [address] [place] Granular casts (Urine sed) [#/Area] 1-3 /LPF Abnormal 0 /LPF [facility] Comment on above: Order Comment: Speci men Type: URINE SPECIMENOrdering Facility: [facility] Address: [address] [place] [address] Performed By: #### 2 4356-8 ####ADKINS LABORATORYCLIA [id number] [place] [address] [place] Hemoglobin Ql (U) Negative Normal Negative [facility] Comment on above: Order Comment: Speci men Type: URINE SPECIMENOrdering Facility: [facility] Address: [address] [place] [address] Performed By: #### 2 4356-8 ####ADKINS LABORATORYCLIA [id number] [address] [place] Hyaline casts (Urine sed) [#/Area] 1-3 /LPF Abnormal 0 /LPF [facility] Comment on above: Order Comment: Speci men Type: URINE SPECIMENOrdering Facility: [facility] Address: [address] [place] [address] Performed By: #### 2 4356-8 ####ADKINS LABORATORYCLIA [id number] [place] [address] [place] Ketones Ql (U) Negative Normal Negative [facility] Comment on above: Order Comment: Speci men Type: URINE SPECIMENOrdering Facility: [facility] Address: [address] [place] [address] Performed By: #### 2 4356-8 ####ADKINS LABORATORYCLIA [id number] [address] [place] Leukocyte esterase Test strip Ql (U) Negative Normal Negative [facility] Comment on above: Order Comment: Speci men Type: URINE SPECIMENOrdering Facility: [facility] Address: [address] [place] [address] Performed By: #### 2 4356-8 ####ADKINS LABORATORYCLIA [id number] [place] [address] [place] Nitrite Ql (U) Negative Normal Negative [facility] Comment on above: Order Comment: Speci men Type: URINE SPECIMENOrdering Facility: [facility] Address: [address] [place] [address] Performed By: #### 2 4356-8 ####ADKINS LABORATORYCLIA [id number] [address] pH (U) 6.0 [pH] Normal 5.0-8.0 [facility] Comment on above: Order Comment: Speci men Type: URINE SPECIMENOrdering Facility: [facility] Address: [address] [place] [address] Performed By: #### 2 4356-8 ####ADKINS LABORATORYCLIA [id number] [address] [place] Protein (U) [Mass/Vol] 3+ Abnormal Negative [facility] Comment on above: Order Comment: Speci men Type: URINE SPECIMENOrdering Facility: [facility] Address: [address] [place] [address] Performed By: #### 2 4356-8 ####ADKINS LABORATORYCLIA [id number] [place] [address] [place] RBC LM.HPF (Urine sed) [#/Area] 0-3 /HPF Normal 0-3 /HPF [facility] Comment on above: Order Comment: Speci men Type: URINE SPECIMENOrdering Facility: [facility] Address: [address] [place] [address] Performed By: #### 2 4356-8 ####ADKINS LABORATORYCLIA [id number] [address] Specific gravity (U) [Rel density] 1.020 Normal 1.005-1.030 [facility] Comment on above: Order Comment: Speci men Type: URINE SPECIMENOrdering Facility: [facility] Address: [address] [place] [address] Performed By: #### 2 4356-8 ####ADKINS LABORATORYCLIA [id number] [address] Urobilinogen Ql (U) 0.2 EU/dL Normal 0.2-1.0 EU/dL [facility] Comment on above: Order Comment: Speci men Type: URINE SPECIMENOrdering Facility: [facility] Address: [address] [place] [address] Performed By: #### 2 4356-8 ####ADKINS LABORATORYCLIA [id number] [address] [place] [facility] WBC LM.HPF (Urine sed) [#/Area] 0-5 /HPF Normal 0-5 /HPF [facility] Comment on above: Order Comment: Speci men Type: URINE SPECIMENOrdering Facility: [facility] Address: [address] [place] [address] Performed By: #### 2 4356-8 ####ADKINS LABORATORYCLIA [id number] [address] [place] CASE MANAGEMon 07-22-2024 CASE MANAGEM Normal [facility] CBC panel Auto (Bld)on 07-22 Erythrocyte distribution width (RBC) [Ratio] 13.1 % Normal 11.5-15.0 [facility] Comment on above: Order Comment: Speci men Type: BLOOD SPECIMENOrdering Facility: [facility] Address: [address] [place] [address] Performed By: #### 5 8410-2 ####ADKINS LABORATORYCLIA [id number] [address] [place] Hematocrit (Bld) [Volume fraction] 27.0 % Low 39.0-51.0 [facility] Comment on above: Order Comment: Speci men Type: BLOOD SPECIMENOrdering Facility: [facility] Address: [address] [place] [address] Performed By: #### 5 8410-2 ####ADKINS LABORATORYCLIA [id number] [address] [place] Hemoglobin (Bld) [Mass/Vol] 9.0 g/dL Low 13.0-17.0 [facility] Comment on above: Order Comment: Speci men Type: BLOOD SPECIMENOrdering Facility: [facility] Address: [address] [place] [address] Performed By: #### 5 8410-2 ####ADKINS LABORATORYCLIA [id number] [address] [place] MCH (RBC) [Entitic mass] 29.0 pg Normal 26.0-34.0 [facility] Comment on above: Order Comment: Speci men Type: BLOOD SPECIMENOrdering Facility: [facility] Address: [address] [place] [address] Performed By: #### 5 8410-2 ####ADKINS LABORATORYCLIA [id number] [address] MCHC (RBC) [Mass/Vol] 33.3 g/dL Normal 30.5-36.0 [facility] Comment on above: Order Comment: Speci men Type: BLOOD SPECIMENOrdering Facility: [facility] Address: [address] [place] [address] Performed By: #### 5 8410-2 ####ADKINS LABORATORYCLIA [id number] [address] MCV (RBC) [Entitic vol] 87.1 fL Normal 80.0-100.0 [facility] Comment on above: Order Comment: Speci men Type: BLOOD SPECIMENOrdering Facility: [facility] Address: [address] [place] [address] Performed By: #### 5 8410-2 ####ADKINS LABORATORYCLIA [id number] [address] Nucleated RBC (Bld) [#/Vol] 10*3/uL Normal <0.01 [facility] Comment on above: Order Comment: Speci men Type: BLOOD SPECIMENOrdering Facility: [facility] Address: [address] [place] [address] Performed By: #### 5 8410-2 ####ADKINS LABORATORYCLIA [id number] [address] Platelet mean volume (Bld) [Entitic vol] 9.0 fL Normal 9.0-12.7 [facility] Comment on above: Order Comment: Speci men Type: BLOOD SPECIMENOrdering Facility: [facility] Address: [address] [place] [address] Performed By: #### 5 8410-2 ####ADKINS LABORATORYCLIA [id number] [address] [place] Platelets (Bld) [#/Vol] 147 10*3/uL Low 150-400 [facility] Comment on above: Order Comment: Speci men Type: BLOOD SPECIMENOrdering Facility: [facility] Address: [address] [place] [address] Performed By: #### 5 8410-2 ####ADKINS LABORATORYCLIA [id number] [place] [address] [place] RBC (Bld) [#/Vol] 3.10 10*6/uL Low 4.20-6.00 [facility] Comment on above: Order Comment: Speci men Type: BLOOD SPECIMENOrdering Facility: [facility] Address: [address] [place] [address] Performed By: #### 5 8410-2 ####[facility] LABORATORYCLIA [id number] [address] STATES OF [facility] WBC (Bld) [#/Vol] 4.92 10*3/uL Normal 3.70-11.00 [facility] Comment on above: Order Comment: Speci men Type: BLOOD SPECIMENOrdering Facility: [facility] Address: [address] [place] [address] Performed By: #### 5 8410-2 ####ADKINS LABORATORYCLIA [id number] [address] [place] CONSULT PROGon 07-22-2024 CONSULT PROG Normal [facility] Comprehensive metabolic 2000 panelon 07-22-2024 Albumin [Mass/Vol] 2.9 g/dL Low 3.9-4.9 [facility] Comment on above: Order Comment: Speci men Type: BLOOD SPECIMENOrdering Facility: [facility] Address: [address] [place] [address] Performed By: #### 2 4323-8 ####ADKINS LABORATORYCLIA [id number] [address] [place] ALP [Catalytic activity/Vol] 102 U/L Normal 38-113 [facility] Comment on above: Order Comment: Speci men Type: BLOOD SPECIMENOrdering Facility: [facility] Address: [address] [place] [address] Performed By: #### 2 4323-8 ####ADKINS LABORATORYCLIA [id number] [address] [place] ALT [Catalytic activity/Vol] 12 U/L Normal 10-54 [facility] Comment on above: Order Comment: Speci men Type: BLOOD SPECIMENOrdering Facility: [facility] Address: [address] [place] [address] Performed By: #### 2 4323-8 ####ADKINS LABORATORYCLIA [id number] [place] [address] [place] Anion gap [Moles/Vol] 11 mmol/L Normal 8-15 [facility] Comment on above: Order Comment: Speci men Type: BLOOD SPECIMENOrdering Facility: [facility] Address: [address] [place] [address] Performed By: #### 2 4323-8 ####ADKINS LABORATORYCLIA [id number] [address] [place] AST [Catalytic activity/Vol] 18 U/L Normal 14-40 [facility] Comment on above: Order Comment: Speci men Type: BLOOD SPECIMENOrdering Facility: [facility] Address: [address] [place] [address] [place] [address] Performed By: #### 2 4323-8 ####ADKINS LABORATORYCLIA [id number] [address] [place] Bilirubin [Mass/Vol] 0.2 mg/dL Normal 0.2-1.3 [facility] Comment on above: Order Comment: Speci men Type: BLOOD SPECIMENOrdering Facility: [facility] Address: [address] [place] [address] Performed By: #### 2 4323-8 ####ADKINS LABORATORYCLIA [id number] [place] [address] [place] Calcium [Mass/Vol] 8.4 mg/dL Low 8.5-10.2 [facility] Comment on above: Order Comment: Speci men Type: BLOOD SPECIMENOrdering Facility: [facility] Address: [address] [place] [address] Performed By: #### 2 4323-8 ####ADKINS LABORATORYCLIA [id number] [place] [address] [place] Chloride [Moles/Vol] 99 mmol/L Normal 98-107 [facility] Comment on above: Order Comment: Speci men Type: BLOOD SPECIMENOrdering Facility: [facility] Address: [address] [place] [address] Performed By: #### 2 4323-8 ####ADKINS LABORATORYCLIA [id number] [place] [address] [place] CO2 [Moles/Vol] 26 mmol/L Normal 22-30 [facility] Comment on above: Order Comment: Speci men Type: BLOOD SPECIMENOrdering Facility: [facility] Address: [address] [place] [address] Performed By: #### 2 4323-8 ####ADKINS LABORATORYCLIA [id number] [place] [address] [place] Creatinine [Mass/Vol] 5.23 mg/dL High 0.73-1.22 [facility] Comment on above: Order Comment: Speci men Type: BLOOD SPECIMENOrdering Facility: [facility] Address: [address] [place] [address] Performed By: #### 2 4323-8 ####ADKINS LABORATORYCLIA [id number] [address] Creatinine and Glomerular filtration rate.predicted panel (S/P/Bld) 12 mL/min/1.73m??? Low >=60 [facility] Comment on above: Order Comment: Speci men Type: BLOOD SPECIMENOrdering Facility: [facility] Address: [address] [place] [address] Result Comment: Breanne mated Glomerular Filtration Rate (eGFR) is calculated using the 2020 CKD-EPI creatinine equation. This equation utilizes serum creatinine, sex, and age as parameters. The creatinine assay has traceable calibration to isotope dilution-mass spectrometry. Refer to KDIGO guidelines for clinical interpretation. In patients with unstable renal function, e.g. those with acute kidney injury, the eGFR may not accurately reflect actual GFR. Performed By: #### 2 4323-8 ####ADKINS LABORATORYCLIA [id number] [place] [address] [place] Glucose [Mass/Vol] 108 mg/dL High 74-99 [facility] Comment on above: Order Comment: Luz vaughan Type: BLOOD SPECIMENOrdering Facility: [facility] Address: [address] [place] [address] Result Comment: The [place] [employer] (ADA) provides guidance for cutoff values for fasting glucose and random glucose. The ADA defines fasting as no caloric intake for at least 8 hours. Fasting plasma glucose results between 100 to 125 mg/dL indicate increased risk for diabetes (prediabetes).Fasting plasma glucose results greater than or equal to 126 mg/dL meet the criteria for diagnosis of diabetes. In the absence of unequivocal hyperglycemia, results should be confirmed by repeat testing. In a patient with classic symptoms of hyperglycemia or hyperglycemic crisis, random plasma glucose results greater than or equal to 200 mg/dL meet the criteria for diagnosis of diabetes.Reference: Standards of Medical Care in Diabetes 2016, [place] [employer]. Diabetes Care. 2016.39(Suppl 1). Performed By: #### 2 4323-8 ####[place] LABORATORYCLIA [id number] [place] [address] [place] Potassium [Moles/Vol] 4.0 mmol/L Normal 3.7-5.1 [facility] Comment on above: Order Comment: Luz vaughan Type: BLOOD SPECIMENOrdering Facility: [facility] Address: [address] [place] [address] Performed By: #### 2 4323-8 ####ADKINS LABORATORYCLIA [id number] [place] [address] [place] Protein [Mass/Vol] 5.6 g/dL Low 6.3-8.0 [facility] Comment on above: Order Comment: Luz men Type: BLOOD SPECIMENOrdering Facility: [facility] Address: [address] [place] [address] Performed By: #### 2 4323-8 ####[place] LABORATORYCLIA [id number] [place] [address] [place] Sodium [Moles/Vol] 136 mmol/L Normal 136-144 [facility] Comment on above: Order Comment: Speci men Type: BLOOD SPECIMENOrdering Facility: [facility] Address: [address] [place] [address] Performed By: #### 2 4323-8 ####ADK[facility] LABORATORYCLIA [id number] [address] Urea nitrogen [Mass/Vol] 46 mg/dL High 9-24 [facility] Comment on above: Order Comment: Speci men Type: BLOOD SPECIMENOrdering Facility: [facility] Address: [address] [place] [address] Performed By: #### 2 4323-8 ####ADKINS LABORATORYCLIA [id number] [address] [place] THERAPY NTon 07-22-2024 THERAPY NT Normal [facility] CBC panel Auto (Bld)on 07-21 Erythrocyte distribution width (RBC) [Ratio] 13.2 % Normal 11.5-15.0 [facility] Comment on above: Order Comment: Speci men Type: BLOOD SPECIMENOrdering Facility: [facility] Address: [address] [place] [address] Performed By: #### 5 8410-2 ####ADK[facility] LABORATORYCLIA [id number] [address] OF [facility] Hematocrit (Bld) [Volume fraction] 27.0 % Low 39.0-51.0 [facility] Comment on above: Order Comment: Speci men Type: BLOOD SPECIMENOrdering Facility: [facility] Address: [address] [place] [address] Performed By: #### 5 8410-2 ####AD[facility] LABORATORYCLIA [id number] [address] STATES OF [facility] Hemoglobin (Bld) [Mass/Vol] 8.8 g/dL Low 13.0-17.0 [facility] Comment on above: Order Comment: Speci men Type: BLOOD SPECIMENOrdering Facility: [facility] Address: [address] [place] [address] Performed By: #### 5 8410-2 ####[facility] LABORATORYCLIA [id number] [address] MCH (RBC) [Entitic mass] 28.6 pg Normal 26.0-34.0 [facility] Comment on above: Order Comment: Speci men Type: BLOOD SPECIMENOrdering Facility: [facility] Address: [address] [place] [address] Performed By: #### 5 8410-2 ####[facility] LABORATORYCLIA [id number] [address] MCHC (RBC) [Mass/Vol] 32.6 g/dL Normal 30.5-36.0 [facility] Comment on above: Order Comment: Speci men Type: BLOOD SPECIMENOrdering Facility: [facility] Address: [address] [place] [address] Performed By: #### 5 8410-2 ####[facility] LABORATORYCLIA [id number] [address] MCV (RBC) [Entitic vol] 87.7 fL Normal 80.0-100.0 [facility] Comment on above: Order Comment: Speci men Type: BLOOD SPECIMENOrdering Facility: [facility] Address: [address] [place] [address] Performed By: #### 5 8410-2 ####[facility] LABORATORYCLIA [id number] [address] Nucleated RBC (Bld) [#/Vol] 10*3/uL Normal <0.01 [facility] Comment on above: Order Comment: Speci men Type: BLOOD SPECIMENOrdering Facility: [facility] Address: [address] [place] [address] Performed By: #### 5 8410-2 ####[facility] LABORATORYCLIA [id number] [address] Platelet mean volume (Bld) [Entitic vol] 9.2 fL Normal 9.0-12.7 [facility] Comment on above: Order Comment: Speci men Type: BLOOD SPECIMENOrdering Facility: [facility] Address: [address] [place] [address] Performed By: #### 5 8410-2 ####ADK[facility] LABORATORYCLIA [id number] [place] [id number] [facility] Platelets (Bld) [#/Vol] 148 10*3/uL Low 150-400 [facility] Comment on above: Order Comment: Speci men Type: BLOOD SPECIMENOrdering Facility: [facility] Address: [address] [place] [address] Performed By: #### 5 8410-2 ####[place] LABORATORYCLIA [id number] [address] RBC (Bld) [#/Vol] 3.08 10*6/uL Low 4.20-6.00 [facility] Comment on above: Order Comment: Speci men Type: BLOOD SPECIMENOrdering Facility: [facility] Address: [address] [place] [address] Performed By: #### 5 8410-2 ####[place] LABORATORYCLIA [id number] [address] WBC (Bld) [#/Vol] 4.39 10*3/uL Normal 3.70-11.00 [facility] Comment on above: Order Comment: Speci men Type: BLOOD SPECIMENOrdering Facility: [facility] Address: [address] [place] [address] Performed By: #### 5 8410-2 ####[place] LABORATORYCLIA [id number] [address] OF [facility] CONSULT PROGon 07-21-2024 CONSULT PROG Normal [facility] Comprehensive metabolic 2000 panelon 07-21-2024 Albumin [Mass/Vol] 3.2 g/dL Low 3.9-4.9 [facility] Comment on above: Order Comment: Speci men Type: BLOOD SPECIMENOrdering Facility: [facility] Address: [address] [place] [address] Performed By: #### 2 4323-8 ####[place] LABORATORYCLIA [id number] [address] ALP [Catalytic activity/Vol] 106 U/L Normal 38-113 [facility] Comment on above: Order Comment: Speci men Type: BLOOD SPECIMENOrdering Facility: [facility] Address: [address] [place] [address] Performed By: #### 2 4323-8 ####[facility] LABORATORYCLIA [id number] [place] [address] [place] ALT [Catalytic activity/Vol] 13 U/L Normal 10-54 [facility] Comment on above: Order Comment: Speci men Type: BLOOD SPECIMENOrdering Facility: [facility] Address: [address] [place] [address] Performed By: #### 2 4323-8 ####[facility] LABORATORYCLIA [id number] [place] [address] [place] Anion gap [Moles/Vol] 14 mmol/L Normal 8-15 [facility] Comment on above: Order Comment: Speci men Type: BLOOD SPECIMENOrdering Facility: [facility] Address: [address] [place] [address] Performed By: #### 2 4323-8 ####[facility] LABORATORYCLIA [id number] [address] [place] AST [Catalytic activity/Vol] 25 U/L Normal 14-40 [facility] Comment on above: Order Comment: Speci men Type: BLOOD SPECIMENOrdering Facility: [facility] Address: [address] [place] [address] Performed By: #### 2 4323-8 ####[facility] LABORATORYCLIA [id number] [place] [address] [place] Bilirubin [Mass/Vol] 0.3 mg/dL Normal 0.2-1.3 [facility] Comment on above: Order Comment: Speci men Type: BLOOD SPECIMENOrdering Facility: [facility] Address: [address] [place] [address] Performed By: #### 2 4323-8 ####[place] LABORATORYCLIA [id number] [place] [address] [place] Calcium [Mass/Vol] 8.6 mg/dL Normal 8.5-10.2 [facility] Comment on above: Order Comment: Speci men Type: BLOOD SPECIMENOrdering Facility: [facility] Address: [address] [place] [address] Performed By: #### 2 4323-8 ####[facility] LABORATORYCLIA [id number] [address] Chloride [Moles/Vol] 96 mmol/L Low 98-107 [facility] Comment on above: Order Comment: Speci men Type: BLOOD SPECIMENOrdering Facility: [facility] Address: [address] [place] [address] Performed By: #### 2 4323-8 ####[facility] LABORATORYCLIA [id number] [address] [place] CO2 [Moles/Vol] 25 mmol/L Normal 22-30 [facility] Comment on above: Order Comment: Speci men Type: BLOOD SPECIMENOrdering Facility: [facility] Address: [address] [place] [address] Performed By: #### 2 4323-8 ####[facility] LABORATORYCLIA [id number] [address] STATES OF [facility] Creatinine [Mass/Vol] 4.12 mg/dL High 0.73-1.22 [facility] Comment on above: Order Comment: Speci men Type: BLOOD SPECIMENOrdering Facility: [facility] Address: [address] [place] [address] Performed By: #### 2 4323-8 ####[place] LABORATORYCLIA [id number] [address] Creatinine and Glomerular filtration rate.predicted panel (S/P/Bld) 15 mL/min/1.73m??? Low >=60 [facility] Comment on above: Order Comment: Speci men Type: BLOOD SPECIMENOrdering Facility: [facility] Address: [address] [place] [address] Result Comment: Breanne mated Glomerular Filtration Rate (eGFR) is calculated using the 2020 CKD-EPI creatinine equation. This equation utilizes serum creatinine, sex, and age as parameters. The creatinine assay has traceable calibration to isotope dilution-mass spectrometry. Refer to KDIGO guidelines for clinical interpretation. In patients with unstable renal function, e.g. those with acute kidney injury, the eGFR may not accurately reflect actual GFR. Performed By: #### 2 4323-8 ####[facility] LABORATORYCLIA [id number] [place] [address] [place] Glucose [Mass/Vol] 85 mg/dL Normal 74-99 [facility] Comment on above: Order Comment: Luz vaughan Type: BLOOD SPECIMENOrdering Facility: [facility] Address: [address] [place] [address] Result Comment: The [place] [employer] (ADA) provides guidance for cutoff values for fasting glucose and random glucose. The ADA defines fasting as no caloric intake for at least 8 hours. Fasting plasma glucose results between 100 to 125 mg/dL indicate increased risk for diabetes (prediabetes).Fasting plasma glucose results greater than or equal to 126 mg/dL meet the criteria for diagnosis of diabetes. In the absence of unequivocal hyperglycemia, results should be confirmed by repeat testing. In a patient with classic symptoms of hyperglycemia or hyperglycemic crisis, random plasma glucose results greater than or equal to 200 mg/dL meet the criteria for diagnosis of diabetes.Reference: Standards of Medical Care in Diabetes 2016, [place] [employer]. Diabetes Care. 2016.39(Suppl 1). Performed By: #### 2 4323-8 ####[facility] LABORATORYCLIA [id number] [place] [address] [place] Potassium [Moles/Vol] 3.8 mmol/L Normal 3.7-5.1 [facility] Comment on above: Order Comment: Luz vaughan Type: BLOOD SPECIMENOrdering Facility: [facility] Address: [address] [place] [address] Performed By: #### 2 4323-8 ####[facility] LABORATORYCLIA [id number] [place] [address] [place] Protein [Mass/Vol] 5.8 g/dL Low 6.3-8.0 [facility] Comment on above: Order Comment: Luz vaughan Type: BLOOD SPECIMENOrdering Facility: [facility] Address: [address] [place] [address] Performed By: #### 2 4323-8 ####[facility] LABORATORYCLIA [id number] [place] [address] [place] Sodium [Moles/Vol] 135 mmol/L Low 136-144 [facility] Comment on above: Order Comment: Speci men Type: BLOOD SPECIMENOrdering Facility: [facility] Address: [address] [place] [address] Performed By: #### 2 4323-8 ####[facility] LABORATORYCLIA [id number] [place] [address] [place] Urea nitrogen [Mass/Vol] 34 mg/dL High 9-24 [facility] Comment on above: Order Comment: Speci men Type: BLOOD SPECIMENOrdering Facility: [facility] Address: [address] [place] [address] Performed By: #### 2 4323-8 ####[facility] LABORATORYCLIA [id number] [place] [address] [place] Basic metabolic 2000 panelon 07-20-2024 Anion gap [Moles/Vol] 15 mmol/L Normal 8-15 [facility] Comment on above: Order Comment: Speci men Type: BLOOD SPECIMENOrdering Facility: [facility] Address: [address] [place] [address] Performed By: #### 2 4321-2 ####[facility] LABORATORYCLIA [id number] [place] [address] [place] Calcium [Mass/Vol] 9.1 mg/dL Normal 8.5-10.2 [facility] Comment on above: Order Comment: Speci men Type: BLOOD SPECIMENOrdering Facility: [facility] Address: [address] [place] [address] Performed By: #### 2 4321-2 ####ADK[facility] LABORATORYCLIA [id number] [place] [address] [place] Chloride [Moles/Vol] 101 mmol/L Normal 98-107 [facility] Comment on above: Order Comment: Speci men Type: BLOOD SPECIMENOrdering Facility: [facility] Address: [address] [place] [address] Performed By: #### 2 4321-2 ####[facility] LABORATORYCLIA [id number] [address] [place] CO2 [Moles/Vol] 23 mmol/L Normal 22-30 [facility] Comment on above: Order Comment: Luz vaughan Type: BLOOD SPECIMENOrdering Facility: [facility] Address: [address] [place] [address] Performed By: #### 2 4321-2 ####AD[facility] LABORATORYCLIA [id number] [address] [place] Creatinine [Mass/Vol] 5.49 mg/dL High 0.73-1.22 [facility] Comment on above: Order Comment: Luz clement Type: BLOOD SPECIMENOrdering Facility: [facility] Address: [address] [place] [address] Performed By: #### 2 4321-2 ####[facility] LABORATORYCLIA [id number] [address] Creatinine and Glomerular filtration rate.predicted panel (S/P/Bld) 11 mL/min/1.73m??? Low >=60 [facility] Comment on above: Order Comment: Luz vaughan Type: BLOOD SPECIMENOrdering Facility: [facility] Address: [address] [place] [address] Result Comment: Breanne mated Glomerular Filtration Rate (eGFR) is calculated using the 2020 CKD-EPI creatinine equation. This equation utilizes serum creatinine, sex, and age as parameters. The creatinine assay has traceable calibration to isotope dilution-mass spectrometry. Refer to KDIGO guidelines for clinical interpretation. In patients with unstable renal function, e.g. those with acute kidney injury, the eGFR may not accurately reflect actual GFR. Performed By: #### 2 4321-2 ####[facility] LABORATORYCLIA [id number] [address] [place] Glucose [Mass/Vol] 123 mg/dL High 74-99 [facility] Comment on above: Order Comment: Luz clement Type: BLOOD SPECIMENOrdering Facility: [facility] Address: [address] [place] [address] Result Comment: The [place] Diabetes [employer] (ADA) provides guidance for cutoff values for fasting glucose and random glucose. The ADA defines fasting as no caloric intake for at least 8 hours. Fasting plasma glucose results between 100 to 125 mg/dL indicate increased risk for diabetes (prediabetes).Fasting plasma glucose results greater than or equal to 126 mg/dL meet the criteria for diagnosis of diabetes. In the absence of unequivocal hyperglycemia, results should be confirmed by repeat testing. In a patient with classic symptoms of hyperglycemia or hyperglycemic crisis, random plasma glucose results greater than or equal to 200 mg/dL meet the criteria for diagnosis of diabetes.Reference: Standards of Medical Care in Diabetes 2016, [place] [employer]. Diabetes Care. 2016.39(Suppl 1). Performed By: #### 2 4321-2 ####[facility] LABORATORYCLIA [id number] [place] [address] [place] Potassium [Moles/Vol] 4.5 mmol/L Normal 3.7-5.1 [facility] Comment on above: Order Comment: Luz vaughan Type: BLOOD SPECIMENOrdering Facility: [facility] Address: [address] [place] [address] Performed By: #### 2 4321-2 ####[facility] LABORATORYCLIA [id number] [place] [address] [place] Sodium [Moles/Vol] 139 mmol/L Normal 136-144 [facility] Comment on above: Order Comment: Luz vaughan Type: BLOOD SPECIMENOrdering Facility: [facility] Address: [address] [place] [address] Performed By: #### 2 4321-2 ####[facility] LABORATORYCLIA [id number] [address] [place] Urea nitrogen [Mass/Vol] 57 mg/dL High 9-24 [facility] Comment on above: Order Comment: Luz vaughan Type: BLOOD SPECIMENOrdering Facility: [facility] Address: [address] [place] [address] Performed By: #### 2 4321-2 ####[facility] LABORATORYCLIA [id number] [place] [address] [place] [address] BRAIN WO IVCONon 07-21-19 CT BRAIN WO IVCON [facility] NURSING PROGon 07-20-2024 NURSING PROG [facility] CASE MANAGEMon 07-19-2024 CASE MANAGEM [facility] CONSULT PROGon 07-19-2024 CONSULT PROG Normal [facility] Renal function 2000 panelon 07-19-2024 Albumin [Mass/Vol] 3.2 g/dL Low 3.9-4.9 [facility] Comment on above: Order Comment: Speci men Type: BLOOD SPECIMENOrdering Facility: [facility] Address: [address] [place] [address] Performed By: #### 2 4362-6 ####[facility] LABORATORYCLIA [id number] [address] [place] Anion gap [Moles/Vol] 20 mmol/L High 8-15 [facility] Comment on above: Order Comment: Speci men Type: BLOOD SPECIMENOrdering Facility: [facility] Address: [address] [place] [address] Performed By: #### 2 4362-6 ####[facility] LABORATORYCLIA [id number] [place] [address] [place] Calcium [Mass/Vol] 9.1 mg/dL Normal 8.5-10.2 [facility] Comment on above: Order Comment: Speci men Type: BLOOD SPECIMENOrdering Facility: [facility] Address: [address] [place] [address] Performed By: #### 2 4362-6 ####[facility] LABORATORYCLIA [id number] [address] [place] Chloride [Moles/Vol] 109 mmol/L High 98-107 [facility] Comment on above: Order Comment: Speci men Type: BLOOD SPECIMENOrdering Facility: [facility] Address: [address] [place] [address] Performed By: #### 2 4362-6 ####[facility] LABORATORYCLIA [id number] [place] [address] [place] CO2 [Moles/Vol] 16 mmol/L Low 22-30 [facility] Comment on above: Order Comment: Speci men Type: BLOOD SPECIMENOrdering Facility: [facility] Address: [address] [place] [address] Performed By: #### 2 4362-6 ####[facility] LABORATORYCLIA [id number] [place] [address] [place] Creatinine [Mass/Vol] 6.51 mg/dL High 0.73-1.22 [facility] Comment on above: Order Comment: Luz vaughan Type: BLOOD SPECIMENOrdering Facility: [facility] Address: [address] [place] [address] Performed By: #### 2 4362-6 ####[facility] LABORATORYCLIA [id number] [address] Creatinine and Glomerular filtration rate.predicted panel (S/P/Bld) 9 mL/min/1.73m??? Low >=60 [facility] Comment on above: Order Comment: Luz vaughan Type: BLOOD SPECIMENOrdering Facility: [facility] Address: [address] [place] [address] Result Comment: Breanne mated Glomerular Filtration Rate (eGFR) is calculated using the 2020 CKD-EPI creatinine equation. This equation utilizes serum creatinine, sex, and age as parameters. The creatinine assay has traceable calibration to isotope dilution-mass spectrometry. Refer to KDIGO guidelines for clinical interpretation. In patients with unstable renal function, e.g. those with acute kidney injury, the eGFR may not accurately reflect actual GFR. Performed By: #### 2 4362-6 ####[facility] LABORATORYCLIA [id number] [place] [id number] [place] Glucose [Mass/Vol] 100 mg/dL High 74-99 [facility] Comment on above: Order Comment: Luz vaughan Type: BLOOD SPECIMENOrdering Facility: [facility] Address: [address] [place] [address] Result Comment: The [place] Diabetes [employer] (ADA) provides guidance for cutoff values for fasting glucose and random glucose. The ADA defines fasting as no caloric intake for at least 8 hours. Fasting plasma glucose results between 100 to 125 mg/dL indicate increased risk for diabetes (prediabetes).Fasting plasma glucose results greater than or equal to 126 mg/dL meet the criteria for diagnosis of diabetes. In the absence of unequivocal hyperglycemia, results should be confirmed by repeat testing. In a patient with classic symptoms of hyperglycemia or hyperglycemic crisis, random plasma glucose results greater than or equal to 200 mg/dL meet the criteria for diagnosis of diabetes.Reference: Standards of Medical Care in Diabetes 2016, [place] [employer]. Diabetes Care. 2016.39(Suppl 1). Performed By: #### 2 4362-6 ####[facility] LABORATORYCLIA [id number] [place] [address] [place] Phosphate [Mass/Vol] 10.9 mg/dL High 2.7-4.8 [facility] Comment on above: Order Comment: Speci men Type: BLOOD SPECIMENOrdering Facility: [facility] Address: [address] [place] [address] Performed By: #### 2 4362-6 ####[facility] LABORATORYCLIA [id number] [address] [place] Potassium [Moles/Vol] 5.4 mmol/L High 3.7-5.1 [facility] Comment on above: Order Comment: Speci men Type: BLOOD SPECIMENOrdering Facility: [facility] Address: [address] [place] [address] Performed By: #### 2 4362-6 ####[facility] LABORATORYCLIA [id number] [address] [place] [facility] Sodium [Moles/Vol] 145 mmol/L High 136-144 [facility] Comment on above: Order Comment: Brook[place] men Type: BLOOD SPECIMENOrdering Facility: [facility] Address: [address] [place] [address] Performed By: #### 2 4362-6 ####[facility] LABORATORYCLIA [id number] [place] [address] [place] Urea nitrogen [Mass/Vol] 83 mg/dL High 9-24 [facility] Comment on above: Order Comment: Speci men Type: BLOOD SPECIMENOrdering Facility: [facility] Address: [address] [place] [address] Performed By: #### 2 4362-6 ####[facility] LABORATORYCLIA [id number] [place] [address] [place] BRIEF OP NOTon 07-18-2024 BRIEF OP NOT Normal [facility] CASE MANAGEMon 07-18-2024 CASE MANAGEM Normal [facility] CBC W Auto Differential pane l (Bld)on 07-18-2024 Basophils (Bld) [#/Vol] 10*3/uL Normal <0.11 [facility] Comment on above: Order Comment: Speci men Type: BLOOD SPECIMENOrdering Facility: [facility] Address: [address] [place] [address] Performed By: #### 5 7021-8 ####[facility] LABORATORYCLIA [id number] [place] [address] [place] Basophils/100 WBC (Bld) 0.2 % Normal [facility] Comment on above: Order Comment: Speci men Type: BLOOD SPECIMENOrdering Facility: [facility] Address: [address] [place] [address] Performed By: #### 5 7021-8 ####[facility] LABORATORYCLIA [id number] [address] [place] Differential cell count method Nom (Bld) Auto Normal [facility] Comment on above: Order Comment: Speci men Type: BLOOD SPECIMENOrdering Facility: [facility] Address: [address] [place] [address] Performed By: #### 5 7021-8 ####[facility] LABORATORYCLIA [id number] [place] [address] [place] Eosinophils (Bld) [#/Vol] 0.49 10*3/uL High <0.46 [facility] Comment on above: Order Comment: Speci men Type: BLOOD SPECIMENOrdering Facility: [facility] Address: [address] [place] [address] Performed By: #### 5 7021-8 ####[facility] LABORATORYCLIA [id number] [address] [place] Eosinophils/100 WBC (Bld) 8.3 % Normal [facility] Comment on above: Order Comment: Speci men Type: BLOOD SPECIMENOrdering Facility: [facility] Address: [address] [place] [address] Performed By: #### 5 7021-8 ####[facility] LABORATORYCLIA [id number] [place] [address] [place] Erythrocyte distribution width (RBC) [Ratio] 13.2 % Normal 11.5-15.0 [facility] Comment on above: Order Comment: Speci men Type: BLOOD SPECIMENOrdering Facility: [facility] Address: [address] [place] [address] Performed By: #### 5 7021-8 ####[facility] LABORATORYCLIA [id number] [address] [place] Hematocrit (Bld) [Volume fraction] 29.6 % Low 39.0-51.0 [facility] Comment on above: Order Comment: Speci men Type: BLOOD SPECIMENOrdering Facility: [facility] Address: [address] [place] [address] Performed By: #### 5 7021-8 ####[facility] LABORATORYCLIA [id number] [address] [place] Hemoglobin (Bld) [Mass/Vol] 9.4 g/dL Low 13.0-17.0 [facility] Comment on above: Order Comment: Speci men Type: BLOOD SPECIMENOrdering Facility: [facility] Address: [address] [place] [address] Performed By: #### 5 7021-8 ####[facility] LABORATORYCLIA [id number] [address] Immature granulocytes (Bld) [#/Vol] 10*3/uL Normal <0.10 [facility] Comment on above: Order Comment: Speci men Type: BLOOD SPECIMENOrdering Facility: [facility] Address: [address] [place] [address] Performed By: #### 5 7021-8 ####[facility] LABORATORYCLIA [id number] [address] Immature granulocytes/100 WBC (Bld) 0.3 % Normal [facility] Comment on above: Order Comment: Speci men Type: BLOOD SPECIMENOrdering Facility: [facility] Address: [address] [place] [address] Performed By: #### 5 7021-8 ####[facility] LABORATORYCLIA [id number] [address] Lymphocytes (Bld) [#/Vol] 1.17 10*3/uL Normal 1.00-4.00 [facility] Comment on above: Order Comment: Speci men Type: BLOOD SPECIMENOrdering Facility: [facility] Address: [address] [place] [address] Performed By: #### 5 7021-8 ####[facility] LABORATORYCLIA [id number] [address] Lymphocytes/100 WBC (Bld) 19.8 % Normal [facility] Comment on above: Order Comment: Speci men Type: BLOOD SPECIMENOrdering Facility: [facility] Address: [address] [place] [address] Performed By: #### 5 7021-8 ####[facility] LABORATORYCLIA [id number] [address] MCH (RBC) [Entitic mass] 28.7 pg Normal 26.0-34.0 [facility] Comment on above: Order Comment: Speci men Type: BLOOD SPECIMENOrdering Facility: [facility] Address: [address] [place] [address] Performed By: #### 5 7021-8 ####[facility] LABORATORYCLIA [id number] [address] MCHC (RBC) [Mass/Vol] 31.8 g/dL Normal 30.5-36.0 [facility] Comment on above: Order Comment: Speci men Type: BLOOD SPECIMENOrdering Facility: [facility] Address: [address] [place] [address] Performed By: #### 5 7021-8 ####[facility] LABORATORYCLIA [id number] [address] MCV (RBC) [Entitic vol] 90.5 fL Normal 80.0-100.0 [facility] Comment on above: Order Comment: Speci men Type: BLOOD SPECIMENOrdering Facility: [facility] Address: [address] [place] [address] Performed By: #### 5 7021-8 ####[facility] LABORATORYCLIA [id number] [place] [address] [place] Monocytes (Bld) [#/Vol] 0.64 10*3/uL Normal <0.87 [facility] Comment on above: Order Comment: Speci men Type: BLOOD SPECIMENOrdering Facility: [facility] Address: [address] [place] [address] Performed By: #### 5 7021-8 ####[facility] LABORATORYCLIA [id number] [place] [address] [place] Monocytes/100 WBC (Bld) 10.8 % Normal [facility] Comment on above: Order Comment: Speci men Type: BLOOD SPECIMENOrdering Facility: [facility] Address: [address] [place] [address] Performed By: #### 5 7021-8 ####[facility] LABORATORYCLIA [id number] [place] [address] [place] Neutrophils (Bld) [#/Vol] 3.59 10*3/uL Normal 1.45-7.50 [facility] Comment on above: Order Comment: Speci men Type: BLOOD SPECIMENOrdering Facility: [facility] Address: [address] [place] [address] Performed By: #### 5 7021-8 ####[facility] LABORATORYCLIA [id number] [address] [place] Neutrophils/100 WBC (Bld) 60.6 % Normal [facility] Comment on above: Order Comment: Speci men Type: BLOOD SPECIMENOrdering Facility: [facility] Address: [address] [place] [address] Performed By: #### 5 7021-8 ####[facility] LABORATORYCLIA [id number] [place] [address] [place] Nucleated RBC (Bld) [#/Vol] 10*3/uL Normal <0.01 [facility] Comment on above: Order Comment: Speci men Type: BLOOD SPECIMENOrdering Facility: [facility] Address: [address] [place] [address] Performed By: #### 5 7021-8 ####[facility] LABORATORYCLIA [id number] [place] [address] [place] Nucleated RBC/100 WBC (Bld) [Ratio] 0.0 /100 WBC Normal [facility] Comment on above: Order Comment: Speci men Type: BLOOD SPECIMENOrdering Facility: [facility] Address: [address] [place] [address] Performed By: #### 5 7021-8 ####[facility] LABORATORYCLIA [id number] [place] [address] [place] Platelet mean volume (Bld) [Entitic vol] 9.7 fL Normal 9.0-12.7 [facility] Comment on above: Order Comment: Speci men Type: BLOOD SPECIMENOrdering Facility: [facility] Address: [address] [place] [address] Performed By: #### 5 7021-8 ####[facility] LABORATORYCLIA [id number] [place] [address] [place] Platelets (Bld) [#/Vol] 198 10*3/uL Normal 150-400 [facility] Comment on above: Order Comment: Speci men Type: BLOOD SPECIMENOrdering Facility: [facility] Address: [address] [place] [address] Performed By: #### 5 7021-8 ####[facility] LABORATORYCLIA [id number] [place] [address] [place] RBC (Bld) [#/Vol] 3.27 10*6/uL Low 4.20-6.00 [facility] Comment on above: Order Comment: Speci men Type: BLOOD SPECIMENOrdering Facility: [facility] Address: [address] [place] [address] Performed By: #### 5 7021-8 ####[facility] LABORATORYCLIA [id number] [place] [id number] [place] WBC (Bld) [#/Vol] 5.92 10*3/uL Normal 3.70-11.00 [facility] Comment on above: Order Comment: Speci men Type: BLOOD SPECIMENOrdering Facility: [facility] Address: [address] [place] [address] Performed By: #### 5 7021-8 ####[facility] LABORATORYCLIA [id number] [place] [address] [place] CONSULT PROGon 07-18-2024 CONSULT PROG Normal [facility] Comprehensive metabolic 2000 panelon 07-18-2024 Albumin [Mass/Vol] 3.0 g/dL Low 3.9-4.9 [facility] Comment on above: Order Comment: Speci men Type: BLOOD SPECIMENOrdering Facility: [facility] Address: [address] [place] [address] Performed By: #### 2 4323-8 ####[facility] LABORATORYCLIA [id number] [place] [address] [place] ALP [Catalytic activity/Vol] 103 U/L Normal 38-113 [facility] Comment on above: Order Comment: Speci men Type: BLOOD SPECIMENOrdering Facility: [facility] Address: [address] [place] [address] Performed By: #### 2 4323-8 ####[facility] LABORATORYCLIA [id number] [address] [place] ALT [Catalytic activity/Vol] 8 U/L Low 10-54 [facility] Comment on above: Order Comment: Speci men Type: BLOOD SPECIMENOrdering Facility: [facility] Address: [address] [place] [address] Performed By: #### 2 4323-8 ####[facility] LABORATORYCLIA [id number] [place] [address] [place] Anion gap [Moles/Vol] 11 mmol/L Normal 8-15 [facility] Comment on above: Order Comment: Speci men Type: BLOOD SPECIMENOrdering Facility: [facility] Address: [address] [place] [address] Performed By: #### 2 4323-8 ####[facility] LABORATORYCLIA [id number] [place] [address] [place] AST [Catalytic activity/Vol] 10 U/L Low 14-40 [facility] Comment on above: Order Comment: Speci men Type: BLOOD SPECIMENOrdering Facility: [facility] Address: [address] [facility] [place] [address] Performed By: #### 2 4323-8 ####[facility] LABORATORYCLIA [id number] [place] [address] [place] Bilirubin [Mass/Vol] 0.2 mg/dL Normal 0.2-1.3 [facility] Comment on above: Order Comment: Speci men Type: BLOOD SPECIMENOrdering Facility: [facility] Address: [address] [place] [address] Performed By: #### 2 4323-8 ####[facility] LABORATORYCLIA [id number] [place] [address] [place] Calcium [Mass/Vol] 9.1 mg/dL Normal 8.5-10.2 [facility] Comment on above: Order Comment: Speci men Type: BLOOD SPECIMENOrdering Facility: [facility] Address: [address] [place] [address] Performed By: #### 2 4323-8 ####[facility] LABORATORYCLIA [id number] [place] [address] [place] Chloride [Moles/Vol] 112 mmol/L High 98-107 [facility] Comment on above: Order Comment: Speci men Type: BLOOD SPECIMENOrdering Facility: [facility] Address: [address] [place] [address] Performed By: #### 2 4323-8 ####[facility] LABORATORYCLIA [id number] [place] [address] [place] CO2 [Moles/Vol] 20 mmol/L Low 22-30 [facility] Comment on above: Order Comment: Speci men Type: BLOOD SPECIMENOrdering Facility: [facility] Address: [address] [place] [address] Performed By: #### 2 4323-8 ####ADKINS LABORATORYCLIA [id number] [place] [address] [place] Creatinine [Mass/Vol] 5.34 mg/dL High 0.73-1.22 [facility] Comment on above: Order Comment: Speci men Type: BLOOD SPECIMENOrdering Facility: [facility] Address: [address] [place] [address] Performed By: #### 2 4323-8 ####ADKINS LABORATORYCLIA [id number] [place] [id number] [place] Creatinine and Glomerular filtration rate.predicted panel (S/P/Bld) 11 mL/min/1.73m??? Low >=60 [facility] Comment on above: Order Comment: Luz vaughan Type: BLOOD SPECIMENOrdering Facility: [facility] Address: [address] [place] [address] Result Comment: Breanne mated Glomerular Filtration Rate (eGFR) is calculated using the 2020 CKD-EPI creatinine equation. This equation utilizes serum creatinine, sex, and age as parameters. The creatinine assay has traceable calibration to isotope dilution-mass spectrometry. Refer to KDIGO guidelines for clinical interpretation. In patients with unstable renal function, e.g. those with acute kidney injury, the eGFR may not accurately reflect actual GFR. Performed By: #### 2 4323-8 ####ADKINS LABORATORYCLIA [id number] [place] [id number] [place] Glucose [Mass/Vol] 72 mg/dL Low 74-99 [facility] Comment on above: Order Comment: Luz vaughan Type: BLOOD SPECIMENOrdering Facility: [facility] Address: [address] [place] [address] Result Comment: The [place] [employer] (ADA) provides guidance for cutoff values for fasting glucose and random glucose. The ADA defines fasting as no caloric intake for at least 8 hours. Fasting plasma glucose results between 100 to 125 mg/dL indicate increased risk for diabetes (prediabetes).Fasting plasma glucose results greater than or equal to 126 mg/dL meet the criteria for diagnosis of diabetes. In the absence of unequivocal hyperglycemia, results should be confirmed by repeat testing. In a patient with classic symptoms of hyperglycemia or hyperglycemic crisis, random plasma glucose results greater than or equal to 200 mg/dL meet the criteria for diagnosis of diabetes.Reference: Standards of Medical Care in Diabetes 2016, [place] [employer]. Diabetes Care. 2016.39(Suppl 1). Performed By: #### 2 4323-8 ####ADKINS LABORATORYCLIA [id number] [place] [id number] [place] Potassium [Moles/Vol] 5.2 mmol/L High 3.7-5.1 [facility] Comment on above: Order Comment: Speci men Type: BLOOD SPECIMENOrdering Facility: [facility] Address: [address] [place] [address] Performed By: #### 2 4323-8 ####ADKINS LABORATORYCLIA [id number] [place] [address] [place] Protein [Mass/Vol] 5.9 g/dL Low 6.3-8.0 [facility] Comment on above: Order Comment: Speci men Type: BLOOD SPECIMENOrdering Facility: [facility] Address: [address] [place] [address] Performed By: #### 2 4323-8 ####ADKINS LABORATORYCLIA [id number] [place] [address] [place] Sodium [Moles/Vol] 143 mmol/L Normal 136-144 [facility] Comment on above: Order Comment: Brooksi men Type: BLOOD SPECIMENOrdering Facility: [facility] Address: [address] [place] [address] Performed By: #### 2 4323-8 ####ADKINS LABORATORYCLIA [id number] [place] [address] [place] Urea nitrogen [Mass/Vol] 76 mg/dL High 9-24 [facility] Comment on above: Order Comment: Brooksi clement Type: BLOOD SPECIMENOrdering Facility: [facility] Address: [address] [place] [address] Performed By: #### 2 4323-8 ####ADKINS LABORATORYCLIA [id number] [place] [address] [place] HBV surface Ab Ql (S)on 07-02 HBV surface Ab Qn (S) <8.00 Normal [facility] Comment on above: Order Comment: Speci clement Type: BLOOD SPECIMENOrdering Facility: [facility] Address: [address] [place] [address] Result Comment: <8 m IU/mL: No serological evidence of immunity to Hepatitis B Virus.>/= 8 to <12 mIU/mL: No serological evidence of immunity to Hepatitis B Virus.>/= 12 mIU/mL: Consistent with serological evidence of immunity to Hepatitis B Virus. Performed By: #### 2 2322-2, 5195-3 ####[facility] [id number] [address] [place] HBV surface Ab Ser Qlon 07-02 HBV surface Ab Ql (S) Negative Normal [facility] Comment on above: Order Comment: Speci men Type: BLOOD SPECIMENOrdering Facility: [facility] Address: [address] [place] [address] Result Comment: No s erological evidence of immunity to Hepatitis B Virus. Performed By: #### 2 2322-2, 5195-3 ####[facility] [id number] [address] [place] HBV surface Ag Ser Qlon 07-02 HBV surface Ag Ql (S) Negative Normal Negative [facility] Comment on above: Order Comment: Speci men Type: BLOOD SPECIMENOrdering Facility: [facility] Address: [address] [place] [address] Performed By: #### 2 2322-2, 5194-3 ####[facility] [id number] [address] [place] IR CVC TUNNEL W/O PORT INSER Ton 07-18-2024 IR CVC TUNNEL W/O PORT INSERT [facility] NURSING PROGon 07-18-2024 NURSING PROG [facility] PT EDon 07-18-2024 PT ED [facility] THERAPY NTon 07-18-2024 THERAPY NT [facility] CASE MANAGEMon 07-17-2024 CASE MANAGEM [facility] CBC W Auto Differential pane l (Bld)on 07-17-2024 Basophils (Bld) [#/Vol] 10*3/uL Normal <0.11 [facility] Comment on above: Order Comment: Speci men Type: BLOOD SPECIMENOrdering Facility: [facility] Address: [address] [place] [address] Performed By: #### 5 7021-8 ####ADKINS LABORATORYCLIA [id number] [place] [address] [place] Basophils/100 WBC (Bld) 0.2 % Normal [facility] Comment on above: Order Comment: Speci men Type: BLOOD SPECIMENOrdering Facility: [facility] Address: [address] [place] [address] Performed By: #### 5 7021-8 ####ADKINS LABORATORYCLIA [id number] [address] [place] Differential cell count method Nom (Bld) Auto Normal [facility] Comment on above: Order Comment: Speci men Type: BLOOD SPECIMENOrdering Facility: [facility] Address: [address] [place] [address] Performed By: #### 5 7021-8 ####ADK[facility] LABORATORYCLIA [id number] [place] [address] [place] Eosinophils (Bld) [#/Vol] 0.36 10*3/uL Normal <0.46 [facility] Comment on above: Order Comment: Speci men Type: BLOOD SPECIMENOrdering Facility: [facility] Address: [address] [place] [address] Performed By: #### 5 7021-8 ####ADKINS LABORATORYCLIA [id number] [address] Eosinophils/100 WBC (Bld) 5.8 % Normal [facility] Comment on above: Order Comment: Speci men Type: BLOOD SPECIMENOrdering Facility: [facility] Address: [address] [place] [address] Performed By: #### 5 7021-8 ####ADKINS LABORATORYCLIA [id number] [address] [place] Erythrocyte distribution width (RBC) [Ratio] 13.2 % Normal 11.5-15.0 [facility] Comment on above: Order Comment: Speci men Type: BLOOD SPECIMENOrdering Facility: [facility] Address: [address] [place] [address] Performed By: #### 5 7021-8 ####ADKINS LABORATORYCLIA [id number] [place] [address] [place] Hematocrit (Bld) [Volume fraction] 31.9 % Low 39.0-51.0 [facility] Comment on above: Order Comment: Speci men Type: BLOOD SPECIMENOrdering Facility: [facility] Address: [address] [place] [address] Performed By: #### 5 7021-8 ####ADKINS LABORATORYCLIA [id number] [place] [address] [place] Hemoglobin (Bld) [Mass/Vol] 10.3 g/dL Low 13.0-17.0 [facility] Comment on above: Order Comment: Speci men Type: BLOOD SPECIMENOrdering Facility: [facility] Address: [address] [place] [address] Performed By: #### 5 7021-8 ####ADKINS LABORATORYCLIA [id number] [place] [address] [place] Immature granulocytes (Bld) [#/Vol] 0.04 10*3/uL Normal <0.10 [facility] Comment on above: Order Comment: Speci men Type: BLOOD SPECIMENOrdering Facility: [facility] Address: [address] [place] [address] Performed By: #### 5 7021-8 ####ADKINS LABORATORYCLIA [id number] [address] [place] Immature granulocytes/100 WBC (Bld) 0.6 % Normal [facility] Comment on above: Order Comment: Speci men Type: BLOOD SPECIMENOrdering Facility: [facility] Address: [address] [place] [address] Performed By: #### 5 7021-8 ####ADK[facility] LABORATORYCLIA [id number] [place] [address] [place] Lymphocytes (Bld) [#/Vol] 1.09 10*3/uL Normal 1.00-4.00 [facility] Comment on above: Order Comment: Speci men Type: BLOOD SPECIMENOrdering Facility: [facility] Address: [address] [place] [address] Performed By: #### 5 7021-8 ####ADKINS LABORATORYCLIA [id number] [address] Lymphocytes/100 WBC (Bld) 17.4 % Normal [facility] Comment on above: Order Comment: Speci men Type: BLOOD SPECIMENOrdering Facility: [facility] Address: [address] [place] [address] Performed By: #### 5 7021-8 ####ADKINS LABORATORYCLIA [id number] [address] MCH (RBC) [Entitic mass] 28.9 pg Normal 26.0-34.0 [facility] Comment on above: Order Comment: Speci men Type: BLOOD SPECIMENOrdering Facility: [facility] Address: [address] [place] [address] Performed By: #### 5 7021-8 ####ADKINS LABORATORYCLIA [id number] [address] MCHC (RBC) [Mass/Vol] 32.3 g/dL Normal 30.5-36.0 [facility] Comment on above: Order Comment: Speci men Type: BLOOD SPECIMENOrdering Facility: [facility] Address: [address] [place] [address] Performed By: #### 5 7021-8 ####ADKINS LABORATORYCLIA [id number] [address] MCV (RBC) [Entitic vol] 89.4 fL Normal 80.0-100.0 [facility] Comment on above: Order Comment: Speci men Type: BLOOD SPECIMENOrdering Facility: [facility] Address: [address] [place] [address] Performed By: #### 5 7021-8 ####ADKINS LABORATORYCLIA [id number] [address] Monocytes (Bld) [#/Vol] 0.61 10*3/uL Normal <0.87 [facility] Comment on above: Order Comment: Speci men Type: BLOOD SPECIMENOrdering Facility: [facility] Address: [address] [place] [address] Performed By: #### 5 7021-8 ####ADKINS LABORATORYCLIA [id number] [place] [address] [place] [facility] [place] Monocytes/100 WBC (Bld) 9.7 % Normal [facility] Comment on above: Order Comment: Speci men Type: BLOOD SPECIMENOrdering Facility: [facility] Address: [address] [place] [address] Performed By: #### 5 7021-8 ####ADKINS LABORATORYCLIA [id number] [place] [address] [place] Neutrophils (Bld) [#/Vol] 4.15 10*3/uL Normal 1.45-7.50 [facility] Comment on above: Order Comment: Speci men Type: BLOOD SPECIMENOrdering Facility: [facility] Address: [address] [place] [address] Performed By: #### 5 7021-8 ####ADKINS LABORATORYCLIA [id number] [place] [address] [place] Neutrophils/100 WBC (Bld) 66.3 % Normal [facility] Comment on above: Order Comment: Speci men Type: BLOOD SPECIMENOrdering Facility: [facility] Address: [address] [place] [address] Performed By: #### 5 7021-8 ####ADKINS LABORATORYCLIA [id number] [place] [address] [place] Nucleated RBC (Bld) [#/Vol] 10*3/uL Normal <0.01 [facility] Comment on above: Order Comment: Speci men Type: BLOOD SPECIMENOrdering Facility: [facility] Address: [address] [place] [address] Performed By: #### 5 7021-8 ####ADKINS LABORATORYCLIA [id number] [place] [address] [place] Nucleated RBC/100 WBC (Bld) [Ratio] 0.0 /100 WBC Normal [facility] Comment on above: Order Comment: Speci men Type: BLOOD SPECIMENOrdering Facility: [facility] Address: [address] [place] [address] Performed By: #### 5 7021-8 ####ADKINS LABORATORYCLIA [id number] [place] [id number] [place] Platelet mean volume (Bld) [Entitic vol] 9.5 fL Normal 9.0-12.7 [facility] Comment on above: Order Comment: Speci men Type: BLOOD SPECIMENOrdering Facility: [facility] Address: [address] [place] [address] Performed By: #### 5 7021-8 ####[facility] LABORATORYCLIA [id number] [place] [address] [place] Platelets (Bld) [#/Vol] 218 10*3/uL Normal 150-400 [facility] Comment on above: Order Comment: Speci men Type: BLOOD SPECIMENOrdering Facility: [facility] Address: [address] [place] [address] Performed By: #### 5 7021-8 ####[facility] LABORATORYCLIA [id number] [place] [address] [place] RBC (Bld) [#/Vol] 3.57 10*6/uL Low 4.20-6.00 [facility] Comment on above: Order Comment: Speci men Type: BLOOD SPECIMENOrdering Facility: [facility] Address: [address] [place] [address] Performed By: #### 5 7021-8 ####[facility] LABORATORYCLIA [id number] [address] [place] WBC (Bld) [#/Vol] 6.26 10*3/uL Normal 3.70-11.00 [facility] Comment on above: Order Comment: Speci men Type: BLOOD SPECIMENOrdering Facility: [facility] Address: [address] [place] [address] Performed By: #### 5 7021-8 ####ADK[facility] LABORATORYCLIA [id number] [place] [id number] [facility] CONSULT PROGon 07-17-2024 CONSULT PROG Normal [facility] Comprehensive metabolic 2000 panelon 07-17-2024 Albumin [Mass/Vol] 3.5 g/dL Low 3.9-4.9 [facility] Comment on above: Order Comment: Speci men Type: BLOOD SPECIMENOrdering Facility: [facility] Address: [address] [place] [address] [place] [address] Performed By: #### 2 4323-8 ####ADKINS LABORATORYCLIA [id number] [address] [place] ALP [Catalytic activity/Vol] 114 U/L High 38-113 [facility] Comment on above: Order Comment: Speci men Type: BLOOD SPECIMENOrdering Facility: [facility] Address: [address] [place] [address] Performed By: #### 2 4323-8 ####ADKINS LABORATORYCLIA [id number] [address] ALT [Catalytic activity/Vol] 10 U/L Normal 10-54 [facility] Comment on above: Order Comment: Speci men Type: BLOOD SPECIMENOrdering Facility: [facility] Address: [address] [place] [address] Performed By: #### 2 4323-8 ####ADK[facility] LABORATORYCLIA [id number] [place] [address] [place] [facility] Anion gap [Moles/Vol] 11 mmol/L Normal 8-15 [facility] Comment on above: Order Comment: Speci men Type: BLOOD SPECIMENOrdering Facility: [facility] Address: [address] [place] [address] Performed By: #### 2 4323-8 ####ADK[facility] LABORATORYCLIA [id number] [address] AST [Catalytic activity/Vol] 13 U/L Low 14-40 [facility] Comment on above: Order Comment: Speci men Type: BLOOD SPECIMENOrdering Facility: [facility] Address: [address] [place] [address] Performed By: #### 2 4323-8 ####ADK[facility] LABORATORYCLIA [id number] [place] [address] [place] Bilirubin [Mass/Vol] 0.3 mg/dL Normal 0.2-1.3 [facility] Comment on above: Order Comment: Speci men Type: BLOOD SPECIMENOrdering Facility: [facility] Address: [address] [place] [address] Performed By: #### 2 4323-8 ####ADK[facility] LABORATORYCLIA [id number] [place] [address] [place] Calcium [Mass/Vol] 9.7 mg/dL Normal 8.5-10.2 [facility] Comment on above: Order Comment: Speci men Type: BLOOD SPECIMENOrdering Facility: [facility] Address: [address] [place] [address] Performed By: #### 2 4323-8 ####ADKINS LABORATORYCLIA [id number] [place] [address] [place] Chloride [Moles/Vol] 112 mmol/L High 98-107 [facility] Comment on above: Order Comment: Speci men Type: BLOOD SPECIMENOrdering Facility: [facility] Address: [address] [place] [address] Performed By: #### 2 4323-8 ####ADK[facility] LABORATORYCLIA [id number] [place] [address] [place] CO2 [Moles/Vol] 22 mmol/L Normal 22-30 [facility] Comment on above: Order Comment: Speci men Type: BLOOD SPECIMENOrdering Facility: [facility] Address: [address] [place] [address] Performed By: #### 2 4323-8 ####ADK[facility] LABORATORYCLIA [id number] [place] [address] [place] Creatinine [Mass/Vol] 5.50 mg/dL High 0.73-1.22 [facility] Comment on above: Order Comment: Speci men Type: BLOOD SPECIMENOrdering Facility: [facility] Address: [facility] [place] [address] Performed By: #### 2 4323-8 ####ADK[facility] LABORATORYCLIA [id number] [place] [address] [place] Creatinine and Glomerular filtration rate.predicted panel (S/P/Bld) 11 mL/min/1.73m??? Low >=60 [facility] Comment on above: Order Comment: Luz vaguhan Type: BLOOD SPECIMENOrdering Facility: [facility] Address: [address] [place] [address] Result Comment: Breanne mated Glomerular Filtration Rate (eGFR) is calculated using the 2020 CKD-EPI creatinine equation. This equation utilizes serum creatinine, sex, and age as parameters. The creatinine assay has traceable calibration to isotope dilution-mass spectrometry. Refer to KDIGO guidelines for clinical interpretation. In patients with unstable renal function, e.g. those with acute kidney injury, the eGFR may not accurately reflect actual GFR. Performed By: #### 2 4323-8 ####[place] LABORATORYCLIA [id number] [place] [address] [place] Glucose [Mass/Vol] 84 mg/dL Normal 74-99 [facility] Comment on above: Order Comment: Luz vaughan Type: BLOOD SPECIMENOrdering Facility: [facility] Address: [address] [place] [address] Result Comment: The [place] [employer] (ADA) provides guidance for cutoff values for fasting glucose and random glucose. The ADA defines fasting as no caloric intake for at least 8 hours. Fasting plasma glucose results between 100 to 125 mg/dL indicate increased risk for diabetes (prediabetes).Fasting plasma glucose results greater than or equal to 126 mg/dL meet the criteria for diagnosis of diabetes. In the absence of unequivocal hyperglycemia, results should be confirmed by repeat testing. In a patient with classic symptoms of hyperglycemia or hyperglycemic crisis, random plasma glucose results greater than or equal to 200 mg/dL meet the criteria for diagnosis of diabetes.Reference: Standards of Medical Care in Diabetes 2016, [place] [employer]. Diabetes Care. 2016.39(Suppl 1). Performed By: #### 2 4323-8 ####[facility] LABORATORYCLIA [id number] [place] [id number] [place] Potassium [Moles/Vol] 5.2 mmol/L High 3.7-5.1 [facility] Comment on above: Order Comment: Luz vaughan Type: BLOOD SPECIMENOrdering Facility: [facility] Address: [address] [place] [id number] Performed By: #### 2 4323-8 ####[facility] LABORATORYCLIA [id number] [place] [address] [place] Protein [Mass/Vol] 6.3 g/dL Normal 6.3-8.0 [facility] Comment on above: Order Comment: Speci men Type: BLOOD SPECIMENOrdering Facility: [facility] Address: [address] [place] [address] Performed By: #### 2 4323-8 ####ADK[facility] LABORATORYCLIA [id number] [place] [address] [place] Sodium [Moles/Vol] 145 mmol/L High 136-144 [facility] Comment on above: Order Comment: Speci men Type: BLOOD SPECIMENOrdering Facility: [facility] Address: [address] [place] [address] Performed By: #### 2 4323-8 ####[facility] LABORATORYCLIA [id number] [place] [address] [place] Urea nitrogen [Mass/Vol] 82 mg/dL High 9-24 [facility] Comment on above: Order Comment: Speci men Type: BLOOD SPECIMENOrdering Facility: [facility] Address: [address] [place] [address] Performed By: #### 2 4323-8 ####[facility] LABORATORYCLIA [id number] [place] [address] [place] NURSING PROGon 07-17-2024 NURSING PROG [facility] NUTRITIONon 07-17-2024 NUTRITION Normal [facility] CASE MANAGEMon 07-16-2024 CASE MANAGEM [facility] CBC W Auto Differential pane l (Bld)on 07-16-2024 Basophils (Bld) [#/Vol] 10*3/uL Normal <0.11 [facility] Comment on above: Order Comment: Speci men Type: BLOOD SPECIMENOrdering Facility: [facility] Address: [address] [place] [address] Performed By: #### 5 7021-8 ####[facility] LABORATORYCLIA [id number] [place] [address] [place] Basophils/100 WBC (Bld) 0.1 % [facility] Comment on above: Order Comment: Speci men Type: BLOOD SPECIMENOrdering Facility: [facility] Address: [address] [place] [address] Performed By: #### 5 7021-8 ####[facility] LABORATORYCLIA [id number] [address] [place] Differential cell count method Nom (Bld) Auto Normal [facility] Comment on above: Order Comment: Speci men Type: BLOOD SPECIMENOrdering Facility: [facility] Address: [address] [place] [address] Performed By: #### 5 7021-8 ####[facility] LABORATORYCLIA [id number] [place] [address] [place] Eosinophils (Bld) [#/Vol] 0.21 10*3/uL Normal <0.46 [facility] Comment on above: Order Comment: Speci men Type: BLOOD SPECIMENOrdering Facility: [facility] Address: [address] [place] [address] Performed By: #### 5 7021-8 ####[facility] LABORATORYCLIA [id number] [address] [place] Eosinophils/100 WBC (Bld) 3.1 % Normal [facility] Comment on above: Order Comment: Speci men Type: BLOOD SPECIMENOrdering Facility: [facility] Address: [address] [place] [address] Performed By: #### 5 7021-8 ####[facility] LABORATORYCLIA [id number] [address] [place] Erythrocyte distribution width (RBC) [Ratio] 13.3 % Normal 11.5-15.0 [facility] Comment on above: Order Comment: Speci men Type: BLOOD SPECIMENOrdering Facility: [facility] Address: [address] [place] [address] Performed By: #### 5 7021-8 ####[facility] LABORATORYCLIA [id number] [address] [place] Hematocrit (Bld) [Volume fraction] 29.1 % Low 39.0-51.0 [facility] Comment on above: Order Comment: Speci men Type: BLOOD SPECIMENOrdering Facility: [facility] Address: [address] [place] [address] Performed By: #### 5 7021-8 ####[facility] LABORATORYCLIA [id number] [place] [address] [place] Hemoglobin (Bld) [Mass/Vol] 9.2 g/dL Low 13.0-17.0 [facility] Comment on above: Order Comment: Speci men Type: BLOOD SPECIMENOrdering Facility: [facility] Address: [address] [place] [address] Performed By: #### 5 7021-8 ####[facility] LABORATORYCLIA [id number] [place] [address] [place] Immature granulocytes (Bld) [#/Vol] 0.04 10*3/uL Normal <0.10 [facility] Comment on above: Order Comment: Speci men Type: BLOOD SPECIMENOrdering Facility: [facility] Address: [address] [place] [address] Performed By: #### 5 7021-8 ####[facility] LABORATORYCLIA [id number] [place] [address] [place] Immature granulocytes/100 WBC (Bld) 0.6 % Normal [facility] Comment on above: Order Comment: Speci men Type: BLOOD SPECIMENOrdering Facility: [facility] Address: [address] [place] [address] Performed By: #### 5 7021-8 ####ADKINS LABORATORYCLIA [id number] [place] [address] [place] Lymphocytes (Bld) [#/Vol] 0.97 10*3/uL Low 1.00-4.00 [facility] Comment on above: Order Comment: Speci men Type: BLOOD SPECIMENOrdering Facility: [facility] Address: [address] [place] [address] Performed By: #### 5 7021-8 ####ADKINS LABORATORYCLIA [id number] [place] [address] [place] [facility] [place] Lymphocytes/100 WBC (Bld) 14.4 % Normal [facility] Comment on above: Order Comment: Speci men Type: BLOOD SPECIMENOrdering Facility: [facility] Address: [address] [place] [address] Performed By: #### 5 7021-8 ####ADKINS LABORATORYCLIA [id number] [address] MCH (RBC) [Entitic mass] 28.4 pg Normal 26.0-34.0 [facility] Comment on above: Order Comment: Speci men Type: BLOOD SPECIMENOrdering Facility: [facility] Address: [address] [place] [address] Performed By: #### 5 7021-8 ####ADKINS LABORATORYCLIA [id number] [address] [place] MCHC (RBC) [Mass/Vol] 31.6 g/dL Normal 30.5-36.0 [facility] Comment on above: Order Comment: Speci men Type: BLOOD SPECIMENOrdering Facility: [facility] Address: [address] [place] [address] Performed By: #### 5 7021-8 ####ADKINS LABORATORYCLIA [id number] [address] MCV (RBC) [Entitic vol] 89.8 fL Normal 80.0-100.0 [facility] Comment on above: Order Comment: Speci men Type: BLOOD SPECIMENOrdering Facility: [facility] Address: [address] [place] [address] Performed By: #### 5 7021-8 ####ADKINS LABORATORYCLIA [id number] [address] Monocytes (Bld) [#/Vol] 0.81 10*3/uL Normal <0.87 [facility] Comment on above: Order Comment: Speci men Type: BLOOD SPECIMENOrdering Facility: [facility] Address: [address] [place] [address] Performed By: #### 5 7021-8 ####ADKINS LABORATORYCLIA [id number] [address] Monocytes/100 WBC (Bld) 12.0 % Normal [facility] Comment on above: Order Comment: Speci men Type: BLOOD SPECIMENOrdering Facility: [facility] Address: [address] [place] [address] Performed By: #### 5 7021-8 ####ADKINS LABORATORYCLIA [id number] [place] [address] [place] Neutrophils (Bld) [#/Vol] 4.69 10*3/uL Normal 1.45-7.50 [facility] Comment on above: Order Comment: Speci men Type: BLOOD SPECIMENOrdering Facility: [facility] Address: [address] [place] [address] Performed By: #### 5 7021-8 ####ADKINS LABORATORYCLIA [id number] [address] [place] Neutrophils/100 WBC (Bld) 69.8 % Normal [facility] Comment on above: Order Comment: Speci men Type: BLOOD SPECIMENOrdering Facility: [facility] Address: [address] [place] [address] Performed By: #### 5 7021-8 ####ADKINS LABORATORYCLIA [id number] [place] [address] [place] Nucleated RBC (Bld) [#/Vol] 10*3/uL Normal <0.01 [facility] Comment on above: Order Comment: Speci men Type: BLOOD SPECIMENOrdering Facility: [facility] Address: [address] [place] [address] Performed By: #### 5 7021-8 ####ADKINS LABORATORYCLIA [id number] [place] [address] [place] [facility] [place] Nucleated RBC/100 WBC (Bld) [Ratio] 0.0 /100 WBC Normal [facility] Comment on above: Order Comment: Speci men Type: BLOOD SPECIMENOrdering Facility: [facility] Address: [address] [place] [address] Performed By: #### 5 7021-8 ####ADKINS LABORATORYCLIA [id number] [place] [address] [place] Platelet mean volume (Bld) [Entitic vol] 9.2 fL Normal 9.0-12.7 [facility] Comment on above: Order Comment: Speci men Type: BLOOD SPECIMENOrdering Facility: [facility] Address: [address] [place] [address] Performed By: #### 5 7021-8 ####ADKINS LABORATORYCLIA [id number] [address] Platelets (Bld) [#/Vol] 188 10*3/uL Normal 150-400 [facility] Comment on above: Order Comment: Speci men Type: BLOOD SPECIMENOrdering Facility: [facility] Address: [address] [place], [place] [address] [address] Performed By: #### 5 7021-8 ####ADKINS LABORATORYCLIA [id number] [place] [address] [place] [facility] [place] RBC (Bld) [#/Vol] 3.24 10*6/uL Low 4.20-6.00 [facility] Comment on above: Order Comment: Speci men Type: BLOOD SPECIMENOrdering Facility: [facility] Address: [address] [place] [address] [place] [address] Performed By: #### 5 7021-8 ####[facility] LABORATORYCLIA [id number] [address] [place] WBC (Bld) [#/Vol] 6.73 10*3/uL Normal 3.70-11.00 [facility] Comment on above: Order Comment: Speci men Type: BLOOD SPECIMENOrdering Facility: [facility] Address: [address] [place] [address] [place] [address] Performed By: #### 5 7021-8 ####ADKINS LABORATORYCLIA [id number] [address] [place] CNCOon 07-16-2024 CNCO Letter Text [facility] CNDSon 07-16-2024 CNDS [facility] CNPLiana 07-16-2024 CNPN Telephone (HCSIND) -- NADERJOSÉ MANUEL BOND ([id number]) 1960 M T Date Time Provider Department 07/16/24 CLAUDIA CHOW During your visit today, we recorded the following information about you: Maribeth Núñez 07/17/2024 8:44 AM Signed Date/Time: 07/17/2024 8:43 AM Spoke with Janell @ phone #: [phone] - Preferred # for contact: [phone] Have you received help from a home care company in the last 60 days? no Are you agreeable to [facility] services? yes What address will we be seeing you at? [address] [place], [place] [id number] Do you have any upcoming appointments or things we need to schedule around? Not sure Do you have a teachable CG or can you manage your care independently? no Who? independently Allergies As of Date: 07/16/2024 Noted Allergy Reaction PENICILLINS 07/24/2020 16 - Unknown Comments: Pt states he thinks he had a reaction as a child Date Reviewed: 07/15/2024 Reviewed by: Zohreh Stovall RN - Fully Assessed Reason for Visit: Home Care [4073] Cmt: Confirmation Call Prescriptions as of 07/17/2024 - sodium zirconium cyclosilicate (LOKELMA) 5 gram oral packet Take 3 packets by mouth once daily. - doxazosin (CARDURA) 2 mg tablet Take 1 tablet by mouth daily at bedtime. - hydrALAZINE (APRESOLINE) 50 mg tablet Take 1 tablet by mouth two times a day. - insulin glargine U-300 conc (TOUJEO SOLOSTAR U-300 INSULIN) 300 unit/mL (1.5 mL) Inject 18 Units subcutaneously every morning. - oxyCODONE IR (ROXICODONE) 10 mg tab Take 10 mg by mouth every 6 hours. - ergocalciferol 50,000 unit capsule (VITAMIN D2, DRISDOL) Take 1 capsule by mouth one time a week. - dapagliflozin propanediol (FARXIGA) 10 mg tablet Take 1 tablet by mouth daily with breakfast. - diazePAM (VALIUM) 10 mg tablet Take 10 mg by mouth two times a day as needed for anxiety. - insulin lispro (HUMALOG KWIKPEN INSULIN) 100 unit/mL Inject 8 Units subcutaneously three times a day before meals. SLIDING SCALE: bld sugar 60-124=0 units 125-150=2 units, 151-200=4 units, 201-250=6 untis 251-300=8 units, 301-350=10 units, 351-400=12 units - amLODIPine (NORVASC) 5 mg tablet Take 1 tablet by mouth two times a day. - carvedilol (COREG) 25 mg tablet Take 1 tablet by mouth two times a day with meals. - cyclobenzaprine (FLEXERIL) 10 mg tablet Take 1 tablet by mouth three times a day as needed for muscle spasm. - pantoprazole DR (PROTONIX) 40 mg tablet Take 1 tablet by mouth once daily. - DULoxetine (CYMBALTA) 30 mg capsule Take 1 capsule by mouth once daily. - insulin lispro (HUMALOG KWIKPEN) 100 unit/mL Inject 8 Units subcutaneously three times a day before meals. - pen needle,diabetic dual safty (BD AUTOSHIELD DUO PEN NEEDLE) 30 gauge x 3/16" ndle 1 Applicator four times daily. Facility-Administered Medications as of 07/17/2024 - sodium zirconium cyclosilicate 15 g oral packet (LOKELMA) - insulin glargine 18 Units pen (long acting) - doxazosin 2 mg tab(s) (CARDURA) - hydrALAZINE 50 mg tab(s) (APRESOLINE) - oxyCODONE IR 10 mg tab(s) (ROXICODONE) - diazePAM 10 mg tab(s) (VALIUM) - amLODIPine 5 mg tab(s) (NORVASC) - carvedilol 25 mg tab(s) (COREG) - pantoprazole DR 40 mg tab(s) (PROTONIX) - DULoxetine 30 mg cap(s) (CYMBALTA) - cyclobenzaprine 10 mg tab(s) (FLEXERIL) - dextrose 40 % 15 g - glucagon 1 mg injection - dextrose 10% iv bolus - NaCl 0.9% iv flush bag - ondansetron orally disintegrating 4 mg tab(s) (ZOFRAN ODT) - ondansetron (PF) 4 mg injection (ZOFRAN) - aluminum-magnesium hydroxide-simethicone 200-200-20 mg/5 mL 30 mL - docusate sodium 100 mg cap(s) (COLACE) - magnesium hydroxide 400 mg/5 mL 30 mL (MOM) - acetaminophen 650 mg tab(s) (TYLENOL) - insulin lispro injection (rapid acting) (ADMElog) - insulin lispro injection (rapid acting) (ADMElog) Meds Comments as of 11/15/2023: SEE EMAR FOR MEDICATIONS TAKEN LAST 04/19/21 07/31/20 The medications are managed by this patient by: PATIENT Miranda Lewis, OA 11/08/[address] Scott: "Patient to continue to use the SSI only, no regular scheduled Insulin dosing at this time." Patient's sister has been notified and verbalizes understanding." Richard Hinds RN Problem List As Of Date 07/16/2024 Noted Resolved Vitamin D deficiency [E55.9] 02/20/2020 Marijuana use [F12.90] 02/20/2020 Microalbuminuria [R80.9] 02/20/2020 Obesity, Class II, BMI 35-39.9 [E66.812] 02/20/2020 05/25/2023 Chronic bilateral low back pain [M54.50, G89.29]02/20/2020 Weakness [R53.1] 05/05/2020 06/15/2020 Decreased mobility and endurance [Z74.09] 05/05/2020 06/15/2020 Severe episode of recurrent major depressive di*05/28/2020 05/25/2023 Malignant neoplasm of rectum (HCC) [C20] 08/04/2020 05/25/2023 Conduct disorder [F91.9] 09/07/2020 05/25/2023 Spinal stenosis of lumbar region with neurogeni*11/06/2020 Mixed hyperlipidemia [E78.2] 11/06/2020 HTN (hy (more content not included)... Normal [facility] CONSULT PROGon 07-16-2024 CONSULT PROG Normal [facility] Comprehensive metabolic 2000 panelon 07-16-2024 Albumin [Mass/Vol] 3.2 g/dL Low 3.9-4.9 [facility] Comment on above: Order Comment: Speci men Type: BLOOD SPECIMENOrdering Facility: [facility] Address: [address] [place] [address] Performed By: #### 2 4323-8 ####ADKINS LABORATORYCLIA [id number] [address] [place] ALP [Catalytic activity/Vol] 93 U/L Normal 38-113 [facility] Comment on above: Order Comment: Speci men Type: BLOOD SPECIMENOrdering Facility: [facility] Address: [address] [place] [address] Performed By: #### 2 4323-8 ####ADKINS LABORATORYCLIA [id number] [address] [place] ALT [Catalytic activity/Vol] 10 U/L Normal 10-54 [facility] Comment on above: Order Comment: Speci men Type: BLOOD SPECIMENOrdering Facility: [facility] Address: [address] [place] [address] Performed By: #### 2 4323-8 ####ADKINS LABORATORYCLIA [id number] [place] [address] [place] Anion gap [Moles/Vol] 11 mmol/L Normal 8-15 [facility] Comment on above: Order Comment: Speci men Type: BLOOD SPECIMENOrdering Facility: [facility] Address: [address] [place] [address] Performed By: #### 2 4323-8 ####ADKINS LABORATORYCLIA [id number] [address] [place] AST [Catalytic activity/Vol] 10 U/L Low 14-40 [facility] Comment on above: Order Comment: Speci men Type: BLOOD SPECIMENOrdering Facility: [facility] Address: [address] [place] [address] Performed By: #### 2 4323-8 ####ADKINS LABORATORYCLIA [id number] [place] [address] [place] Bilirubin [Mass/Vol] 0.2 mg/dL Normal 0.2-1.3 [facility] Comment on above: Order Comment: Speci men Type: BLOOD SPECIMENOrdering Facility: [facility] Address: [address] [place] [address] Performed By: #### 2 4323-8 ####ADKINS LABORATORYCLIA [id number] [place] [address] [place] Calcium [Mass/Vol] 9.2 mg/dL Normal 8.5-10.2 [facility] Comment on above: Order Comment: Speci men Type: BLOOD SPECIMENOrdering Facility: [facility] Address: [address] [place] [address] Performed By: #### 2 4323-8 ####ADKINS LABORATORYCLIA [id number] [place] [address] [place] Chloride [Moles/Vol] 109 mmol/L High 98-107 [facility] Comment on above: Order Comment: Speci men Type: BLOOD SPECIMENOrdering Facility: [facility] Address: [address] [place] [address] Performed By: #### 2 4323-8 ####ADKINS LABORATORYCLIA [id number] [place] [address] [place] CO2 [Moles/Vol] 24 mmol/L Normal 22-30 [facility] Comment on above: Order Comment: Speci men Type: BLOOD SPECIMENOrdering Facility: [facility] Address: [address] [place] [address] Performed By: #### 2 4323-8 ####ADKINS LABORATORYCLIA [id number] [place] [address] [place] Creatinine [Mass/Vol] 5.71 mg/dL High 0.73-1.22 [facility] Comment on above: Order Comment: Speci men Type: BLOOD SPECIMENOrdering Facility: [facility] Address: [address] [place] [address] Performed By: #### 2 4323-8 ####ADKINS LABORATORYCLIA [id number] [place] [address] [place] [facility] [place] Creatinine and Glomerular filtration rate.predicted panel (S/P/Bld) 10 mL/min/1.73m??? Low >=60 [facility] Comment on above: Order Comment: Speci men Type: BLOOD SPECIMENOrdering Facility: [facility] Address: [address] [place] [address] Result Comment: Breanne mated Glomerular Filtration Rate (eGFR) is calculated using the 2020 CKD-EPI creatinine equation. This equation utilizes serum creatinine, sex, and age as parameters. The creatinine assay has traceable calibration to isotope dilution-mass spectrometry. Refer to KDIGO guidelines for clinical interpretation. In patients with unstable renal function, e.g. those with acute kidney injury, the eGFR may not accurately reflect actual GFR. Performed By: #### 2 4323-8 ####[facility] LABORATORYCLIA [id number] [place] [address] [place] Glucose [Mass/Vol] 115 mg/dL High 74-99 [facility] Comment on above: Order Comment: Luz vaughan Type: BLOOD SPECIMENOrdering Facility: [facility] Address: [address] [place] [address] Result Comment: The [place] Diabetes [employer] (ADA) provides guidance for cutoff values for fasting glucose and random glucose. The ADA defines fasting as no caloric intake for at least 8 hours. Fasting plasma glucose results between 100 to 125 mg/dL indicate increased risk for diabetes (prediabetes).Fasting plasma glucose results greater than or equal to 126 mg/dL meet the criteria for diagnosis of diabetes. In the absence of unequivocal hyperglycemia, results should be confirmed by repeat testing. In a patient with classic symptoms of hyperglycemia or hyperglycemic crisis, random plasma glucose results greater than or equal to 200 mg/dL meet the criteria for diagnosis of diabetes.Reference: Standards of Medical Care in Diabetes 2016, [place] [employer]. Diabetes Care. 2016.39(Suppl 1). Performed By: #### 2 4323-8 ####[facility] LABORATORYCLIA [id number] [place] [id number] [place] Potassium [Moles/Vol] 5.8 mmol/L High 3.7-5.1 [facility] Comment on above: Order Comment: Luz vaughan Type: BLOOD SPECIMENOrdering Facility: [facility] Address: [address] [place] [address] Performed By: #### 2 4323-8 ####[facility] LABORATORYCLIA [id number] [place] [address] [place] Protein [Mass/Vol] 5.7 g/dL Low 6.3-8.0 [facility] Comment on above: Order Comment: Speci men Type: BLOOD SPECIMENOrdering Facility: [facility] Address: [address] [place] [address] [place] [address] Performed By: #### 2 4323-8 ####ADK[facility] LABORATORYCLIA [id number] [address] [place] Sodium [Moles/Vol] 144 mmol/L Normal 136-144 [facility] Comment on above: Order Comment: Speci men Type: BLOOD SPECIMENOrdering Facility: [facility] Address: [address] [place] [address] Performed By: #### 2 4323-8 ####ADK[facility] LABORATORYCLIA [id number] [address] [place] Urea nitrogen [Mass/Vol] 82 mg/dL High 9-24 [facility] Comment on above: Order Comment: Speci men Type: BLOOD SPECIMENOrdering Facility: [facility] Address: [address] [place] [address] Performed By: #### 2 4323-8 ####[facility] LABORATORYCLIA [id number] [address] [place] THERAPY NTon 07-16-2024 THERAPY NT Normal [facility] CASE MANAGEMon 07-15-2024 CASE MANAGEM [facility] CBC W Auto Differential pane l (Bld)on 07-15-2024 Basophils (Bld) [#/Vol] 10*3/uL Normal <0.11 [facility] Comment on above: Order Comment: Speci men Type: BLOOD SPECIMENOrdering Facility: [facility] Address: [address] [place] [address] Performed By: #### 5 7021-8 ####[facility] LABORATORYCLIA [id number] [address] [place] Basophils/100 WBC (Bld) 0.0 % Normal [facility] Comment on above: Order Comment: Speci men Type: BLOOD SPECIMENOrdering Facility: [facility] Address: [address] [place] [address] Performed By: #### 5 7021-8 ####[facility] LABORATORYCLIA [id number] [place] [address] [place] Differential cell count method Nom (Bld) Auto Normal [facility] Comment on above: Order Comment: Speci men Type: BLOOD SPECIMENOrdering Facility: [facility] Address: [address] [place] [address] Performed By: #### 5 7021-8 ####[facility] LABORATORYCLIA [id number] [place] [address] [place] Eosinophils (Bld) [#/Vol] 0.10 10*3/uL Normal <0.46 [facility] Comment on above: Order Comment: Speci men Type: BLOOD SPECIMENOrdering Facility: [facility] Address: [address] [place] [address] Performed By: #### 5 7021-8 ####[facility] LABORATORYCLIA [id number] [address] [place] Eosinophils/100 WBC (Bld) 1.7 % Normal [facility] Comment on above: Order Comment: Speci men Type: BLOOD SPECIMENOrdering Facility: [facility] Address: [address] [place] [address] Performed By: #### 5 7021-8 ####[facility] LABORATORYCLIA [id number] [address] [place] Erythrocyte distribution width (RBC) [Ratio] 13.5 % Normal 11.5-15.0 [facility] Comment on above: Order Comment: Speci men Type: BLOOD SPECIMENOrdering Facility: [facility] Address: [address] [place] [address] Performed By: #### 5 7021-8 ####[facility] LABORATORYCLIA [id number] [address] [place] Hematocrit (Bld) [Volume fraction] 30.0 % Low 39.0-51.0 [facility] Comment on above: Order Comment: Speci men Type: BLOOD SPECIMENOrdering Facility: [facility] Address: [address] [place] [address] Performed By: #### 5 7021-8 ####[facility] LABORATORYCLIA [id number] [place] [address] [place] Hemoglobin (Bld) [Mass/Vol] 9.6 g/dL Low 13.0-17.0 [facility] Comment on above: Order Comment: Speci men Type: BLOOD SPECIMENOrdering Facility: [facility] Address: [address] [place] [address] Performed By: #### 5 7021-8 ####[facility] LABORATORYCLIA [id number] [place] [address] [place] Immature granulocytes (Bld) [#/Vol] 0.03 10*3/uL Normal <0.10 [facility] Comment on above: Order Comment: Speci men Type: BLOOD SPECIMENOrdering Facility: [facility] Address: [address] [place] [address] Performed By: #### 5 7021-8 ####[facility] LABORATORYCLIA [id number] [address] [place] Immature granulocytes/100 WBC (Bld) 0.5 % Normal [facility] Comment on above: Order Comment: Speci men Type: BLOOD SPECIMENOrdering Facility: [facility] Address: [address] [place] [address] Performed By: #### 5 7021-8 ####[facility] LABORATORYCLIA [id number] [place] [address] [place] Lymphocytes (Bld) [#/Vol] 1.09 10*3/uL Normal 1.00-4.00 [facility] Comment on above: Order Comment: Speci men Type: BLOOD SPECIMENOrdering Facility: [facility] Address: [address] [place] [address] Performed By: #### 5 7021-8 ####[facility] LABORATORYCLIA [id number] [address] Lymphocytes/100 WBC (Bld) 19.1 % Normal [facility] Comment on above: Order Comment: Speci men Type: BLOOD SPECIMENOrdering Facility: [facility] Address: [address] [place] [address] Performed By: #### 5 7021-8 ####[facility] LABORATORYCLIA [id number] [address] MCH (RBC) [Entitic mass] 28.8 pg Normal 26.0-34.0 [facility] Comment on above: Order Comment: Speci men Type: BLOOD SPECIMENOrdering Facility: [facility] Address: [address] [place] [address] Performed By: #### 5 7021-8 ####[facility] LABORATORYCLIA [id number] [address] [place] MCHC (RBC) [Mass/Vol] 32.0 g/dL Normal 30.5-36.0 [facility] Comment on above: Order Comment: Speci men Type: BLOOD SPECIMENOrdering Facility: [facility] Address: [address] [place] [address] Performed By: #### 5 7021-8 ####[facility] LABORATORYCLIA [id number] [address] MCV (RBC) [Entitic vol] 90.1 fL Normal 80.0-100.0 [facility] Comment on above: Order Comment: Speci men Type: BLOOD SPECIMENOrdering Facility: [facility] Address: [address] [place] [address] Performed By: #### 5 7021-8 ####[facility] LABORATORYCLIA [id number] [address] Monocytes (Bld) [#/Vol] 0.67 10*3/uL Normal <0.87 [facility] Comment on above: Order Comment: Speci men Type: BLOOD SPECIMENOrdering Facility: [facility] Address: [address] [place] [address] Performed By: #### 5 7021-8 ####[facility] LABORATORYCLIA [id number] [address] Monocytes/100 WBC (Bld) 11.7 % Normal [facility] Comment on above: Order Comment: Speci men Type: BLOOD SPECIMENOrdering Facility: [facility] Address: [address] [place] [address] Performed By: #### 5 7021-8 ####[facility] LABORATORYCLIA [id number] [place] [address] [place] Neutrophils (Bld) [#/Vol] 3.83 10*3/uL Normal 1.45-7.50 [facility] Comment on above: Order Comment: Speci men Type: BLOOD SPECIMENOrdering Facility: [facility] Address: [address] [place] [address] Performed By: #### 5 7021-8 ####[facility] LABORATORYCLIA [id number] [place] [address] [place] Neutrophils/100 WBC (Bld) 67.0 % Normal [facility] Comment on above: Order Comment: Speci men Type: BLOOD SPECIMENOrdering Facility: [facility] Address: [address] [place] [address] Performed By: #### 5 7021-8 ####[facility] LABORATORYCLIA [id number] [place] [address] [place] Nucleated RBC (Bld) [#/Vol] 10*3/uL Normal <0.01 [facility] Comment on above: Order Comment: Speci men Type: BLOOD SPECIMENOrdering Facility: [facility] Address: [address] [place] [address] Performed By: #### 5 7021-8 ####[facility] LABORATORYCLIA [id number] [address] [place] Nucleated RBC/100 WBC (Bld) [Ratio] 0.0 /100 WBC Normal [facility] Comment on above: Order Comment: Speci men Type: BLOOD SPECIMENOrdering Facility: [facility] Address: [address] [place] [address] Performed By: #### 5 7021-8 ####[facility] LABORATORYCLIA [id number] [address] [place] Platelet mean volume (Bld) [Entitic vol] 9.5 fL Normal 9.0-12.7 [facility] Comment on above: Order Comment: Speci men Type: BLOOD SPECIMENOrdering Facility: [facility] Address: [address] [place] [id number] Performed By: #### 5 7021-8 ####[facility] LABORATORYCLIA [id number] [address] [place] Platelets (Bld) [#/Vol] 214 10*3/uL Normal 150-400 [facility] Comment on above: Order Comment: Speci men Type: BLOOD SPECIMENOrdering Facility: [facility] Address: [address] [place] [address] Performed By: #### 5 7021-8 ####ADKINS LABORATORYCLIA [id number] [place] [address] [place] RBC (Bld) [#/Vol] 3.33 10*6/uL Low 4.20-6.00 [facility] Comment on above: Order Comment: Speci men Type: BLOOD SPECIMENOrdering Facility: [facility] Address: [address] [place] [address] Performed By: #### 5 7021-8 ####ADKINS LABORATORYCLIA [id number] [address] OF [facility] WBC (Bld) [#/Vol] 5.72 10*3/uL Normal 3.70-11.00 [facility] Comment on above: Order Comment: Speci men Type: BLOOD SPECIMENOrdering Facility: [facility] Address: [address] [place] [address] [place] [address] Performed By: #### 5 7021-8 ####ADKINS LABORATORYCLIA [id number] [address] [place] CONSULT PROGon 07-15-2024 CONSULT PROG Normal [facility] Magnesium SerPl-mCncon 07-15 Magnesium [Mass/Vol] 2.2 mg/dL Normal 1.7-2.3 [facility] Comment on above: Order Comment: Speci men Type: BLOOD SPECIMENOrdering Facility: [facility] Address: [address] [place], [place] [address] [address] Performed By: #### 2 4362-6, 88574-2 ####ADKINS LABORATORYCLIA [id number] [place] [id number] [place] Renal function 2000 panelon 07-15-2024 Albumin [Mass/Vol] 3.1 g/dL Low 3.9-4.9 [facility] Comment on above: Order Comment: Speci men Type: BLOOD SPECIMENOrdering Facility: [facility] Address: [address] [place] [address] Performed By: #### 2 4362-6, ####ADKINS LABORATORYCLIA [id number] [place] [address] [place] Anion gap [Moles/Vol] 13 mmol/L Normal 8-15 [facility] Comment on above: Order Comment: Speci men Type: BLOOD SPECIMENOrdering Facility: [facility] Address: [address] [place] [address] Performed By: #### 2 4362-6, ####ADKINS LABORATORYCLIA [id number] [place] [address] [place] Calcium [Mass/Vol] 8.8 mg/dL Normal 8.5-10.2 [facility] Comment on above: Order Comment: Speci men Type: BLOOD SPECIMENOrdering Facility: [facility] Address: [address] [place] [address] Performed By: #### 2 4362-6, ####ADKINS LABORATORYCLIA [id number] [place] [address] [place] Chloride [Moles/Vol] 108 mmol/L High 98-107 [facility] Comment on above: Order Comment: Speci men Type: BLOOD SPECIMENOrdering Facility: [facility] Address: [address] [place] [id number] Performed By: #### 2 4362-6, ####ADKINS LABORATORYCLIA [id number] [place] [address] [place] CO2 [Moles/Vol] 24 mmol/L Normal 22-30 [facility] Comment on above: Order Comment: Speci men Type: BLOOD SPECIMENOrdering Facility: [facility] Address: [address] [place] [address] Performed By: #### 2 4362-6, ####[facility] LABORATORYCLIA [id number] [place] [address] [place] Creatinine [Mass/Vol] 5.17 mg/dL High 0.73-1.22 [facility] Comment on above: Order Comment: Luz vaughan Type: BLOOD SPECIMENOrdering Facility: [facility] Address: [address] [place] [address] Performed By: #### 2 4362-6, ####[facility] LABORATORYCLIA [id number] [place] [address] [place] Creatinine and Glomerular filtration rate.predicted panel (S/P/Bld) 12 mL/min/1.73m??? Low >=60 [facility] Comment on above: Order Comment: Luz vaughan Type: BLOOD SPECIMENOrdering Facility: [facility] Address: [address] [place] [address] Result Comment: Breanne mated Glomerular Filtration Rate (eGFR) is calculated using the 2020 CKD-EPI creatinine equation. This equation utilizes serum creatinine, sex, and age as parameters. The creatinine assay has traceable calibration to isotope dilution-mass spectrometry. Refer to KDIGO guidelines for clinical interpretation. In patients with unstable renal function, e.g. those with acute kidney injury, the eGFR may not accurately reflect actual GFR. Performed By: #### 2 4362-6, ####[facility] LABORATORYCLIA [id number] [place] [address] [place] Glucose [Mass/Vol] 160 mg/dL High 74-99 [facility] Comment on above: Order Comment: Luz vaughan Type: BLOOD SPECIMENOrdering Facility: [facility] Address: [address] [place] [address] Result Comment: The [place] Diabetes [employer] (ADA) provides guidance for cutoff values for fasting glucose and random glucose. The ADA defines fasting as no caloric intake for at least 8 hours. Fasting plasma glucose results between 100 to 125 mg/dL indicate increased risk for diabetes (prediabetes).Fasting plasma glucose results greater than or equal to 126 mg/dL meet the criteria for diagnosis of diabetes. In the absence of unequivocal hyperglycemia, results should be confirmed by repeat testing. In a patient with classic symptoms of hyperglycemia or hyperglycemic crisis, random plasma glucose results greater than or equal to 200 mg/dL meet the criteria for diagnosis of diabetes.Reference: Standards of Medical Care in Diabetes 2016, [place] [employer]. Diabetes Care. 2016.39(Suppl 1). Performed By: #### 2 4362-6, ####ADKINS LABORATORYCLIA [id number] [place] [address] [place] Phosphate [Mass/Vol] 6.6 mg/dL High 2.7-4.8 [facility] Comment on above: Order Comment: Luz vaughan Type: BLOOD SPECIMENOrdering Facility: [facility] Address: [address] [place] [address] Performed By: #### 2 43605-09, ####ADKINS LABORATORYCLIA [id number] [place] [address] [place] Potassium [Moles/Vol] 5.3 mmol/L High 3.7-5.1 [facility] Comment on above: Order Comment: Luz vaughan Type: BLOOD SPECIMENOrdering Facility: [facility] Address: [address] [place] [id number] Performed By: #### 2 43605-09, ####ADKINS LABORATORYCLIA [id number] [place] [address] [place] Sodium [Moles/Vol] 145 mmol/L High 136-144 [facility] Comment on above: Order Comment: Luz vaughan Type: BLOOD SPECIMENOrdering Facility: [facility] Address: [address] [place] [address] Performed By: #### 2 43605-09, ####ADK[facility] LABORATORYCLIA [id number] [place] [id number] [place] Urea nitrogen [Mass/Vol] 79 mg/dL High 9-24 [facility] Comment on above: Order Comment: Luz vaughan Type: BLOOD SPECIMENOrdering Facility: [facility] Address: [address] [place] [id number] Performed By: #### 2 43605-09, ####ADK[facility] LABORATORYCLIA [id number] [place] [address] [facility] ALLIED HEALTHon 07-14-2024 ALLIED HEALTH Normal [facility] Albumin SerPl-mCncon 025 Albumin [Mass/Vol] 3.0 g/dL Low 3.9-4.9 [facility] Comment on above: Order Comment: Speci men Type: BLOOD SPECIMENOrdering Facility: [facility] Address: [facility] [place] [address] Performed By: #### 1 751-7, 3040-3, 86838-9, 75120-4, 2777-1, 71278-9 ####[facility] LABORATORYCLIA [id number] [place] [id number] [facility] Basic metabolic 2000 panelon 07-14-2024 Anion gap [Moles/Vol] 13 mmol/L Normal 8-15 [facility] Comment on above: Order Comment: Speci men Type: BLOOD SPECIMENOrdering Facility: [facility] Address: [address] [place] [address] Performed By: #### 1 751-7, 3040-3, 10559-8, 51698-0, 2777-1, 13537-6 ####[facility] LABORATORYCLIA [id number] [place] [id number] [place] Calcium [Mass/Vol] 8.8 mg/dL Normal 8.5-10.2 [facility] Comment on above: Order Comment: Speci men Type: BLOOD SPECIMENOrdering Facility: [facility] Address: [facility] [place] [address] Performed By: #### 1 751-7, 3040-3, 72125-3, 94641-6, 2777-1, 73308-2 ####ADK[facility] LABORATORYCLIA [id number] [place] [id number] [place] Chloride [Moles/Vol] 105 mmol/L Normal 98-107 [facility] Comment on above: Order Comment: Speci men Type: BLOOD SPECIMENOrdering Facility: [facility] Address: [address] [place] [address] Performed By: #### 1 751-7, 3040-3, 20516-4, 10798-2, 2777-1, 10915-0 ####[facility] LABORATORYCLIA [id number] [place] [address] [place] CO2 [Moles/Vol] 24 mmol/L Normal 22-30 [facility] Comment on above: Order Comment: Speci men Type: BLOOD SPECIMENOrdering Facility: [facility] Address: [address] [place] [address] Performed By: #### 1 751-7, 3040-3, 46212-2, 45071-7, 2777-1, 96072-4 ####[facility] LABORATORYCLIA [id number] [place] [address] [place] Creatinine [Mass/Vol] 5.34 mg/dL High 0.73-1.22 [facility] Comment on above: Order Comment: Speci men Type: BLOOD SPECIMENOrdering Facility: [facility] Address: [address] [place] [address] Performed By: #### 1 751-7, 3040-3, 58678-2, 22293-5, 2777-1, 29742-1 ####[facility] LABORATORYCLIA [id number] [place] [address] [place] Creatinine and Glomerular filtration rate.predicted panel (S/P/Bld) 11 mL/min/1.73m??? Low >=60 [facility] Comment on above: Order Comment: Speci men Type: BLOOD SPECIMENOrdering Facility: [facility] Address: [address] [place] [address] Result Comment: Breanne mated Glomerular Filtration Rate (eGFR) is calculated using the 2020 CKD-EPI creatinine equation. This equation utilizes serum creatinine, sex, and age as parameters. The creatinine assay has traceable calibration to isotope dilution-mass spectrometry. Refer to KDIGO guidelines for clinical interpretation. In patients with unstable renal function, e.g. those with acute kidney injury, the eGFR may not accurately reflect actual GFR. Performed By: #### 1 751-7, 3040-3, 17357-7, 78398-4, 2777-1, 38377-1 ####[facility] LABORATORYCLIA [id number] [place] [address] [place] Glucose [Mass/Vol] 59 mg/dL Low 74-99 [facility] Comment on above: Order Comment: Luz vaughan Type: BLOOD SPECIMENOrdering Facility: [facility] Address: [address] [place], [place] [address] Result Comment: The [place] Diabetes Association (ADA) provides guidance for cutoff values for fasting glucose and random glucose. The ADA defines fasting as no caloric intake for at least 8 hours. Fasting plasma glucose results between 100 to 125 mg/dL indicate increased risk for diabetes (prediabetes).Fasting plasma glucose results greater than or equal to 126 mg/dL meet the criteria for diagnosis of diabetes. In the absence of unequivocal hyperglycemia, results should be confirmed by repeat testing. In a patient with classic symptoms of hyperglycemia or hyperglycemic crisis, random plasma glucose results greater than or equal to 200 mg/dL meet the criteria for diagnosis of diabetes.Reference: Standards of Medical Care in Diabetes 2016, [place] [employer]. Diabetes Care. 2016.39(Suppl 1). Performed By: #### 1 751-7, 3040-3, 65308-7, 41058-3, 2777-1, 59393-3 ####[facility] LABORATORYCLIA [id number] [place] [id number] [place] Potassium [Moles/Vol] 4.7 mmol/L Normal 3.7-5.1 [facility] Comment on above: Order Comment: Luz vaughan Type: BLOOD SPECIMENOrdering Facility: [facility] Address: [address] [place], [place] [address] Performed By: #### 1 751-7, 3040-3, 31962-9, 26366-1, 2777-1, 92332-7 ####[facility] LABORATORYCLIA [id number] [place] [id number] [place] Sodium [Moles/Vol] 142 mmol/L Normal 136-144 [facility] Comment on above: Order Comment: Luz vaughan Type: BLOOD SPECIMENOrdering Facility: [facility] Address: [address] [place], [place] [address] Performed By: #### 1 751-7, 3040-3, 62683-6, 91143-9, 2777-1, 89407-9 ####ADK[facility] LABORATORYCLIA [id number] [place] [address] [place] [facility] Urea nitrogen [Mass/Vol] 71 mg/dL High 9 [facility] Comment on above: Order Comment: Speci men Type: BLOOD SPECIMENOrdering Facility: [facility] Address: [address] [place] [address] Performed By: #### 1 751-7, 3040-3, 55224-2, 71000-0, 7-1, 33614-3 ####ADK[facility] LABORATORYCLIA [id number] [address] [place] [facility] CBC W Auto Differential pane l (Bld)on 07-14-2024 Basophils (Bld) [#/Vol] 10*3/uL Normal <0.11 [facility] Comment on above: Order Comment: Speci men Type: BLOOD SPECIMENOrdering Facility: [facility] Address: [address] [place] [address] Performed By: #### 5 7021-8 ####ADK[facility] LABORATORYCLIA [id number] [address] [place] [facility] Basophils/100 WBC (Bld) 0.2 % Normal [facility] Comment on above: Order Comment: Speci men Type: BLOOD SPECIMENOrdering Facility: [facility] Address: [address] [place] [address] Performed By: #### 5 7021-8 ####ADK[facility] LABORATORYCLIA [id number] [address] Differential cell count method Nom (Bld) Auto Normal [facility] Comment on above: Order Comment: Speci men Type: BLOOD SPECIMENOrdering Facility: [facility] Address: [address] [place] [address] Performed By: #### 5 7021-8 ####ADK[facility] LABORATORYCLIA [id number] [place] [address] [place] Eosinophils (Bld) [#/Vol] 0.10 10*3/uL Normal <0.46 [facility] Comment on above: Order Comment: Speci men Type: BLOOD SPECIMENOrdering Facility: [facility] Address: [address] [place] [address] Performed By: #### 5 7021-8 ####ADK[facility] LABORATORYCLIA [id number] [address] [place] Eosinophils/100 WBC (Bld) 2.2 % Normal [facility] Comment on above: Order Comment: Speci men Type: BLOOD SPECIMENOrdering Facility: [facility] Address: [address] [place] [address] Performed By: #### 5 7021-8 ####ADKINS LABORATORYCLIA [id number] [address] [place] [facility] Erythrocyte distribution width (RBC) [Ratio] 13.3 % Normal 11.5-15.0 [facility] Comment on above: Order Comment: Speci men Type: BLOOD SPECIMENOrdering Facility: [facility] Address: [address] [place] [address] Performed By: #### 5 7021-8 ####[facility] LABORATORYCLIA [id number] [address] Hematocrit (Bld) [Volume fraction] 29.8 % Low 39.0-51.0 [facility] Comment on above: Order Comment: Speci men Type: BLOOD SPECIMENOrdering Facility: [facility] Address: [address] [place] [address] Performed By: #### 5 7021-8 ####ADK[facility] LABORATORYCLIA [id number] [place] [address] [place] Hemoglobin (Bld) [Mass/Vol] 9.6 g/dL Low 13.0-17.0 [facility] Comment on above: Order Comment: Speci men Type: BLOOD SPECIMENOrdering Facility: [facility] Address: [address] [place] [address] Performed By: #### 5 7021-8 ####AD[facility] LABORATORYCLIA [id number] [address] [place] Immature granulocytes (Bld) [#/Vol] 0.03 10*3/uL Normal <0.10 [facility] Comment on above: Order Comment: Speci men Type: BLOOD SPECIMENOrdering Facility: [facility] Address: [address] [place] [address] Performed By: #### 5 7021-8 ####[facility] LABORATORYCLIA [id number] [address] [place] Immature granulocytes/100 WBC (Bld) 0.7 % Normal [facility] Comment on above: Order Comment: Speci men Type: BLOOD SPECIMENOrdering Facility: [facility] Address: [address] [place] [address] Performed By: #### 5 7021-8 ####[facility] LABORATORYCLIA [id number] [place] [address] [place] Lymphocytes (Bld) [#/Vol] 1.15 10*3/uL Normal 1.00-4.00 [facility] Comment on above: Order Comment: Speci men Type: BLOOD SPECIMENOrdering Facility: [facility] Address: [address] [place] [address] Performed By: #### 5 7021-8 ####[facility] LABORATORYCLIA [id number] [address] Lymphocytes/100 WBC (Bld) 25.3 % Normal [facility] Comment on above: Order Comment: Speci men Type: BLOOD SPECIMENOrdering Facility: [facility] Address: [address] [place] [address] Performed By: #### 5 7021-8 ####[facility] LABORATORYCLIA [id number] [place] [address] [place] MCH (RBC) [Entitic mass] 28.4 pg Normal 26.0-34.0 [facility] Comment on above: Order Comment: Speci men Type: BLOOD SPECIMENOrdering Facility: [facility] Address: [address] [place] [address] Performed By: #### 5 7021-8 ####AD[facility] LABORATORYCLIA [id number] [address] [place] MCHC (RBC) [Mass/Vol] 32.2 g/dL Normal 30.5-36.0 [facility] Comment on above: Order Comment: Speci men Type: BLOOD SPECIMENOrdering Facility: [facility] Address: [address] [place] [address] Performed By: #### 5 7021-8 ####ADK[facility] LABORATORYCLIA [id number] [place] [address] [place] MCV (RBC) [Entitic vol] 88.2 fL Normal 80.0-100.0 [facility] Comment on above: Order Comment: Speci men Type: BLOOD SPECIMENOrdering Facility: [facility] Address: [address] [place] [address] Performed By: #### 5 7021-8 ####ADK[facility] LABORATORYCLIA [id number] [place] [address] [place] Monocytes (Bld) [#/Vol] 0.45 10*3/uL Normal <0.87 [facility] Comment on above: Order Comment: Speci men Type: BLOOD SPECIMENOrdering Facility: [facility] Address: [address] [place] [address] Performed By: #### 5 7021-8 ####ADK[facility] LABORATORYCLIA [id number] [address] [place] Monocytes/100 WBC (Bld) 9.9 % Normal [facility] Comment on above: Order Comment: Speci men Type: BLOOD SPECIMENOrdering Facility: [facility] Address: [address] [place] [address] Performed By: #### 5 7021-8 ####ADK[facility] LABORATORYCLIA [id number] [place] [address] [place] Neutrophils (Bld) [#/Vol] 2.80 10*3/uL Normal 1.45-7.50 [facility] Comment on above: Order Comment: Speci men Type: BLOOD SPECIMENOrdering Facility: [facility] Address: [address] [place] [address] Performed By: #### 5 7021-8 ####ADK[facility] LABORATORYCLIA [id number] [place] [address] [place] Neutrophils/100 WBC (Bld) 61.7 % Normal [facility] Comment on above: Order Comment: Speci men Type: BLOOD SPECIMENOrdering Facility: [facility] Address: [address] [place] [address] Performed By: #### 5 7021-8 ####AD[facility] LABORATORYCLIA [id number] [place] [address] [place] Nucleated RBC (Bld) [#/Vol] 10*3/uL Normal <0.01 [facility] Comment on above: Order Comment: Speci men Type: BLOOD SPECIMENOrdering Facility: [facility] Address: [address] [place] [address] Performed By: #### 5 7021-8 ####ADK[facility] LABORATORYCLIA [id number] [place] [address] [place] Nucleated RBC/100 WBC (Bld) [Ratio] 0.0 /100 WBC Normal [facility] Comment on above: Order Comment: Speci men Type: BLOOD SPECIMENOrdering Facility: [facility] Address: [address] [place] [address] Performed By: #### 5 7021-8 ####AD[facility] LABORATORYCLIA [id number] [place] [address] [place] Platelet mean volume (Bld) [Entitic vol] 9.6 fL Normal 9.0-12.7 [facility] Comment on above: Order Comment: Speci men Type: BLOOD SPECIMENOrdering Facility: [facility] Address: [address] [place] [address] Performed By: #### 5 7021-8 ####ADK[facility] LABORATORYCLIA [id number] [place] [address] [place] Platelets (Bld) [#/Vol] 230 10*3/uL Normal 150-400 [facility] Comment on above: Order Comment: Speci men Type: BLOOD SPECIMENOrdering Facility: [facility] Address: [address] [place] [address] Performed By: #### 5 7021-8 ####ADK[facility] LABORATORYCLIA [id number] [place] [address] [place] RBC (Bld) [#/Vol] 3.38 10*6/uL Low 4.20-6.00 [facility] Comment on above: Order Comment: Speci men Type: BLOOD SPECIMENOrdering Facility: [facility] Address: [address] [place] [address] Performed By: #### 5 7021-8 ####ADK[facility] LABORATORYCLIA [id number] [place] [address] [place] WBC (Bld) [#/Vol] 4.54 10*3/uL Normal 3.70-11.00 [facility] Comment on above: Order Comment: Speci men Type: BLOOD SPECIMENOrdering Facility: [facility] Address: [address] [place] [address] Performed By: #### 5 7021-8 ####[facility] LABORATORYCLIA [id number] [address] [place] CONSULT PROGon 07-14-2024 CONSULT PROG Normal [facility] CT ABD/PEL WO IVCONon 2024 CT ABD/PEL WO IVCON Normal [facility] Hepatic function 2000 panelo n 07-14-2024 ALP [Catalytic activity/Vol] 65 U/L Normal 38-113 [facility] Comment on above: Order Comment: Speci men Type: BLOOD SPECIMENOrdering Facility: [facility] Address: [address] [place] [address] Performed By: #### 1 751-7, 3040-3, 32161-6, 60950-7, 2777-1, 40618-3 ####[facility] LABORATORYCLIA [id number] [place] [address] [place] ALT [Catalytic activity/Vol] 9 U/L Low 10-54 [facility] Comment on above: Order Comment: Speci men Type: BLOOD SPECIMENOrdering Facility: [facility] Address: [address] [place] [address] Performed By: #### 1 751-7, 3040-3, 99966-0, 16012-4, 2777-1, 51555-1 ####[facility] LABORATORYCLIA [id number] [place] [address] [place] AST [Catalytic activity/Vol] 13 U/L Low 14-40 [facility] Comment on above: Order Comment: Speci men Type: BLOOD SPECIMENOrdering Facility: [facility] Address: [address] [place] [address] Performed By: #### 1 751-7, 3040-3, 29432-2, 18768-5, 2777-1, 86693-1 ####[facility] LABORATORYCLIA [id number] [place] [address] [place] Bilirubin [Mass/Vol] 0.2 mg/dL Normal 0.2-1.3 [facility] Comment on above: Order Comment: Speci men Type: BLOOD SPECIMENOrdering Facility: [facility] Address: [address] [place] [address] Performed By: #### 1 751-7, 3040-3, 40305-7, 34851-2, 2777-1, 71511-1 ####[facility] LABORATORYCLIA [id number] [address] Bilirubin.conjugated [Mass/Vol] mg/dL Normal <0.3 [facility] Comment on above: Order Comment: Speci men Type: BLOOD SPECIMENOrdering Facility: [facility] Address: [address] [place] [address] Performed By: #### 1 751-7, 3040-3, 43148-0, 45785-2, 2777-1, 56776-9 ####[facility] LABORATORYCLIA [id number] [place] [id number] [place] [facility] Protein [Mass/Vol] 5.5 g/dL Low 6.3-8.0 [facility] Comment on above: Order Comment: Speci men Type: BLOOD SPECIMENOrdering Facility: [facility] Address: [address] [place] [address] Performed By: #### 1 751-7, 3040-3, 29789-3, 44382-4, 2777-1, 12332-9 ####[facility] LABORATORYCLIA [id number] [place] [address] [place] Lipase SerPl-cCncon 07-15-19 25 Lipase [Catalytic activity/Vol] 12 U/L Low 16-61 [facility] Comment on above: Order Comment: Speci men Type: BLOOD SPECIMENOrdering Facility: [facility] [facility] [place] [address] Performed By: #### 1 751-7, 3040-3, 95862-0, 28620-0, 2777-1, 01087-7 ####[facility] LABORATORYCLIA [id number] [place] [address] [place] Magnesium SerPl-mCncon 07-14 Magnesium [Mass/Vol] 2.0 mg/dL Normal 1.7-2.3 [facility] Comment on above: Order Comment: Speci men Type: BLOOD SPECIMENOrdering Facility: [facility] Address: [address] [place] [address] Performed By: #### 1 751-7, 3040-3, 88994-1, 08675-2, 2777-1, 27517-9 ####[facility] LABORATORYCLIA [id number] [place] [address] [place] NURSING PROGon 07-14-2024 NURSING PROG Normal [facility] Phosphate SerPl-mCncon 07-14 Phosphate [Mass/Vol] 7.4 mg/dL High 2.7-4.8 [facility] Comment on above: Order Comment: Speci men Type: BLOOD SPECIMENOrdering Facility: [facility] Address: [address] [place], [place] [address] [address] Performed By: #### 1 751-7, 3040-3, 53220-0, 04621-6, 2777-1, 73116-6 ####[facility] LABORATORYCLIA [id number] [place] [address] [place] Albumin SerPl-mCncon 025 Albumin [Mass/Vol] 3.1 g/dL Low 3.9-4.9 [facility] Comment on above: Order Comment: Speci men Type: BLOOD SPECIMENOrdering Facility: [facility] Address: [address] [place] [address] Performed By: #### 2 777-1, 1750-7, 40882-2, 84641-4 ####[facility] LABORATORYCLIA [id number] [place] [address] [place] Basic metabolic 2000 panelon 07-13-2024 Anion gap [Moles/Vol] 10 mmol/L Normal 8-15 [facility] Comment on above: Order Comment: Speci men Type: BLOOD SPECIMENOrdering Facility: [facility] Address: [address] [place] [address] [place] [id number] Performed By: #### 2 777-1, 7, 11999-5, 92168-3 ####[facility] LABORATORYCLIA [id number] [place] [id number] [place] Calcium [Mass/Vol] 9.1 mg/dL Normal 8.5-10.2 [facility] Comment on above: Order Comment: Speci men Type: BLOOD SPECIMENOrdering Facility: [facility] Address: [address] [place], [place] [address] Performed By: #### 2 777-1, 1750-10, 79461-6, 12074-2 ####[facility] LABORATORYCLIA [id number] [place] [id number] [place] Chloride [Moles/Vol] 108 mmol/L High 98-107 [facility] Comment on above: Order Comment: Speci men Type: BLOOD SPECIMENOrdering Facility: [facility] Address: [facility] [place] [id number] Performed By: #### 2 777-1, 1750-10, 59647-9, 53492-3 ####[facility] LABORATORYCLIA [id number] [place] [address] [place] CO2 [Moles/Vol] 24 mmol/L Normal 22-30 [facility] Comment on above: Order Comment: Speci men Type: BLOOD SPECIMENOrdering Facility: [facility] Address: [address] [place] [id number] Performed By: #### 2 777-1, 7, 35910-1, 11052-8 ####[facility] LABORATORYCLIA [id number] [place] [address] [place] Creatinine [Mass/Vol] 5.30 mg/dL High 0.73-1.22 [facility] Comment on above: Order Comment: Luz vaughan Type: BLOOD SPECIMENOrdering Facility: [facility] Address: [address] [place] [address] Performed By: #### 2 777-1, 175-7, 32276-7, ####[facility] LABORATORYCLIA [id number] [place] [id number] [facility] Creatinine and Glomerular filtration rate.predicted panel (S/P/Bld) 11 mL/min/1.73m??? Low >=60 [facility] Comment on above: Order Comment: Luz vaughan Type: BLOOD SPECIMENOrdering Facility: [facility] Address: [address] [place] [address] Result Comment: Breanne mated Glomerular Filtration Rate (eGFR) is calculated using the 2020 CKD-EPI creatinine equation. This equation utilizes serum creatinine, sex, and age as parameters. The creatinine assay has traceable calibration to isotope dilution-mass spectrometry. Refer to KDIGO guidelines for clinical interpretation. In patients with unstable renal function, e.g. those with acute kidney injury, the eGFR may not accurately reflect actual GFR. Performed By: #### 2 777-1, 1750-7, 34474-1, ####[facility] LABORATORYCLIA [id number] [place] [id number] [place] Glucose [Mass/Vol] 66 mg/dL Low 74-99 [facility] Comment on above: Order Comment: Luz vaughan Type: BLOOD SPECIMENOrdering Facility: [facility] Address: [address] [place] [address] Result Comment: The [place] [employer] (ADA) provides guidance for cutoff values for fasting glucose and random glucose. The ADA defines fasting as no caloric intake for at least 8 hours. Fasting plasma glucose results between 100 to 125 mg/dL indicate increased risk for diabetes (prediabetes).Fasting plasma glucose results greater than or equal to 126 mg/dL meet the criteria for diagnosis of diabetes. In the absence of unequivocal hyperglycemia, results should be confirmed by repeat testing. In a patient with classic symptoms of hyperglycemia or hyperglycemic crisis, random plasma glucose results greater than or equal to 200 mg/dL meet the criteria for diagnosis of diabetes.Reference: Standards of Medical Care in Diabetes 2016, [place] [employer]. Diabetes Care. 2016.39(Suppl 1). Performed By: #### 2 777-1, 1750-10, 76648-3, ####[facility] LABORATORYCLIA [id number] [place] [address] [place] Potassium [Moles/Vol] 4.5 mmol/L Normal 3.7-5.1 [facility] Comment on above: Order Comment: Speci clement Type: BLOOD SPECIMENOrdering Facility: [facility] Address: [address] [place] [address] Performed By: #### 2 777-1, 1750-10, , ####[facility] LABORATORYCLIA [id number] [address] [place] [facility] Sodium [Moles/Vol] 142 mmol/L Normal 136-144 [facility] Comment on above: Order Comment: Brooksi clement Type: BLOOD SPECIMENOrdering Facility: [facility] Address: [address] [place] [address] Performed By: #### 2 777-1, 1750-10, , ####[facility] LABORATORYCLIA [id number] [address] [place] [facility] Urea nitrogen [Mass/Vol] 74 mg/dL High 9-24 [facility] Comment on above: Order Comment: Speci men Type: BLOOD SPECIMENOrdering Facility: [facility] Address: [address] [place] [address] Performed By: #### 2 777-1, 1750-10, , ####[facility] LABORATORYCLIA [id number] [address] [place] CBC W Auto Differential pane l (Bld)on 07-13-2024 Basophils (Bld) [#/Vol] 10*3/uL Normal <0.11 [facility] Comment on above: Order Comment: Speci men Type: BLOOD SPECIMENOrdering Facility: [facility] Address: [address] [place] [address] Performed By: #### 5 7021-8 ####[facility] LABORATORYCLIA [id number] [address] [place] Basophils/100 WBC (Bld) 0.2 % Normal [facility] Comment on above: Order Comment: Speci men Type: BLOOD SPECIMENOrdering Facility: [facility] Address: [address] [place] [address] Performed By: #### 5 7021-8 ####[facility] LABORATORYCLIA [id number] [place] [address] [place] Differential cell count method Nom (Bld) Auto Normal [facility] Comment on above: Order Comment: Speci men Type: BLOOD SPECIMENOrdering Facility: [facility] Address: [address] [place] [address] Performed By: #### 5 7021-8 ####[facility] LABORATORYCLIA [id number] [place] [address] [place] Eosinophils (Bld) [#/Vol] 0.23 10*3/uL Normal <0.46 [facility] Comment on above: Order Comment: Speci men Type: BLOOD SPECIMENOrdering Facility: [facility] Address: [address] [place] [address] Performed By: #### 5 7021-8 ####[facility] LABORATORYCLIA [id number] [address] [place] Eosinophils/100 WBC (Bld) 4.9 % Normal [facility] Comment on above: Order Comment: Speci men Type: BLOOD SPECIMENOrdering Facility: [facility] Address: [address] [place] [address] Performed By: #### 5 7021-8 ####[facility] LABORATORYCLIA [id number] [address] [place] Erythrocyte distribution width (RBC) [Ratio] 13.3 % Normal 11.5-15.0 [facility] Comment on above: Order Comment: Speci men Type: BLOOD SPECIMENOrdering Facility: [facility] Address: [address] [place] [address] Performed By: #### 5 7021-8 ####[facility] LABORATORYCLIA [id number] [place] [address] [place] Hematocrit (Bld) [Volume fraction] 30.5 % Low 39.0-51.0 [facility] Comment on above: Order Comment: Speci men Type: BLOOD SPECIMENOrdering Facility: [facility] Address: [address] [place] [address] Performed By: #### 5 7021-8 ####[facility] LABORATORYCLIA [id number] [place] [address] [place] Hemoglobin (Bld) [Mass/Vol] 9.9 g/dL Low 13.0-17.0 [facility] Comment on above: Order Comment: Speci men Type: BLOOD SPECIMENOrdering Facility: [facility] Address: [address] [place] [address] Performed By: #### 5 7021-8 ####[facility] LABORATORYCLIA [id number] [place] [address] [place] Immature granulocytes (Bld) [#/Vol] 0.03 10*3/uL Normal <0.10 [facility] Comment on above: Order Comment: Speci men Type: BLOOD SPECIMENOrdering Facility: [facility] Address: [address] [place] [address] Performed By: #### 5 7021-8 ####[facility] LABORATORYCLIA [id number] [place] [address] [place] Immature granulocytes/100 WBC (Bld) 0.6 % Normal [facility] Comment on above: Order Comment: Speci men Type: BLOOD SPECIMENOrdering Facility: [facility] Address: [address] [place] [address] [place] [address] Performed By: #### 5 7021-8 ####[facility] LABORATORYCLIA [id number] [place] [address] [place] Lymphocytes (Bld) [#/Vol] 1.33 10*3/uL Normal 1.00-4.00 [facility] Comment on above: Order Comment: Speci men Type: BLOOD SPECIMENOrdering Facility: [facility] Address: [address] [place] [address] Performed By: #### 5 7021-8 ####[facility] LABORATORYCLIA [id number] [address] Lymphocytes/100 WBC (Bld) 28.5 % Normal [facility] Comment on above: Order Comment: Speci men Type: BLOOD SPECIMENOrdering Facility: [facility] Address: [address] [place] [address] Performed By: #### 5 7021-8 ####[facility] LABORATORYCLIA [id number] [address] MCH (RBC) [Entitic mass] 28.4 pg Normal 26.0-34.0 [facility] Comment on above: Order Comment: Speci men Type: BLOOD SPECIMENOrdering Facility: [facility] Address: [address] [place] [address] Performed By: #### 5 7021-8 ####[facility] LABORATORYCLIA [id number] [address] [place] [facility] MCHC (RBC) [Mass/Vol] 32.5 g/dL Normal 30.5-36.0 [facility] Comment on above: Order Comment: Speci men Type: BLOOD SPECIMENOrdering Facility: [facility] Address: [address] [place] [address] Performed By: #### 5 7021-8 ####[facility] LABORATORYCLIA [id number] [address] MCV (RBC) [Entitic vol] 87.6 fL Normal 80.0-100.0 [facility] Comment on above: Order Comment: Speci men Type: BLOOD SPECIMENOrdering Facility: [facility] Address: [address] [place] [address] Performed By: #### 5 7021-8 ####[facility] LABORATORYCLIA [id number] [address] Monocytes (Bld) [#/Vol] 0.54 10*3/uL Normal <0.87 [facility] Comment on above: Order Comment: Speci men Type: BLOOD SPECIMENOrdering Facility: [facility] Address: [address] [place] [address] Performed By: #### 5 7021-8 ####[facility] LABORATORYCLIA [id number] [address] [place] Monocytes/100 WBC (Bld) 11.6 % Normal [facility] Comment on above: Order Comment: Speci men Type: BLOOD SPECIMENOrdering Facility: [facility] Address: [address] [place] [address] Performed By: #### 5 7021-8 ####[facility] LABORATORYCLIA [id number] [place] [address] [place] Neutrophils (Bld) [#/Vol] 2.53 10*3/uL Normal 1.45-7.50 [facility] Comment on above: Order Comment: Speci men Type: BLOOD SPECIMENOrdering Facility: [facility] Address: [address] [place] [address] Performed By: #### 5 7021-8 ####[facility] LABORATORYCLIA [id number] [address] [place] Neutrophils/100 WBC (Bld) 54.2 % Normal [facility] Comment on above: Order Comment: Speci men Type: BLOOD SPECIMENOrdering Facility: [facility] Address: [address] [place] [address] Performed By: #### 5 7021-8 ####[facility] LABORATORYCLIA [id number] [place] [address] [place] Nucleated RBC (Bld) [#/Vol] 10*3/uL Normal <0.01 [facility] Comment on above: Order Comment: Speci men Type: BLOOD SPECIMENOrdering Facility: [facility] Address: [address] [place] [address] Performed By: #### 5 7021-8 ####[facility] LABORATORYCLIA [id number] [place] [address] [place] Nucleated RBC/100 WBC (Bld) [Ratio] 0.0 /100 WBC Normal [facility] Comment on above: Order Comment: Speci men Type: BLOOD SPECIMENOrdering Facility: [facility] Address: [facility] [place] [address] Performed By: #### 5 7021-8 ####[facility] LABORATORYCLIA [id number] [place] [address] [place] Platelet mean volume (Bld) [Entitic vol] 9.3 fL Normal 9.0-12.7 [facility] Comment on above: Order Comment: Speci men Type: BLOOD SPECIMENOrdering Facility: [facility] Address: [address] [place] [address] [place] [address] Performed By: #### 5 7021-8 ####[facility] LABORATORYCLIA [id number] [place] [address] [place] Platelets (Bld) [#/Vol] 225 10*3/uL Normal 150-400 [facility] Comment on above: Order Comment: Speci men Type: BLOOD SPECIMENOrdering Facility: [facility] Address: [address] [place] [address] Performed By: #### 5 7021-8 ####[facility] LABORATORYCLIA [id number] [place] [address] [place] RBC (Bld) [#/Vol] 3.48 10*6/uL Low 4.20-6.00 [facility] Comment on above: Order Comment: Speci men Type: BLOOD SPECIMENOrdering Facility: [facility] Address: [address] [place] [address] [place] [address] Performed By: #### 5 7021-8 ####[facility] LABORATORYCLIA [id number] [place] [id number] [place] WBC (Bld) [#/Vol] 4.67 10*3/uL Normal 3.70-11.00 [facility] Comment on above: Order Comment: Speci men Type: BLOOD SPECIMENOrdering Facility: [facility] Address: [address] [place] [address] [place] [address] Performed By: #### 5 7021-8 ####[facility] LABORATORYCLIA [id number] [address] [place] CONSULT PROGon 07-13-2024 CONSULT PROG Normal [facility] Magnesium SerPl-mCncon 07-13 Magnesium [Mass/Vol] 1.8 mg/dL Normal 1.7-2.3 [facility] Comment on above: Order Comment: Speci men Type: BLOOD SPECIMENOrdering Facility: [facility] Address: [address] [place] [address] Performed By: #### 2 777-1, 1751-7, 51549-9, 78990-3 ####[facility] LABORATORYCLIA [id number] [place] [address] [place] Phosphate SerPl-mCncon 07-13 Phosphate [Mass/Vol] 6.5 mg/dL High 2.7-4.8 [facility] Comment on above: Order Comment: Speci men Type: BLOOD SPECIMENOrdering Facility: [facility] Address: [address] [place] [address] Performed By: #### 2 777-1, 175-7, 17131-0, 00277-4 ####[facility] LABORATORYCLIA [id number] [place] [address] [place] Basic metabolic 2000 panelon 07-12-2024 Anion gap [Moles/Vol] 13 mmol/L Normal 8-15 [facility] Comment on above: Order Comment: Speci men Type: BLOOD SPECIMENOrdering Facility: [facility] Address: [address] [place] [address] Performed By: #### 2 4321-2 ####[facility] LABORATORYCLIA [id number] [place] [id number] [place] Calcium [Mass/Vol] 8.9 mg/dL Normal 8.5-10.2 [facility] Comment on above: Order Comment: Speci men Type: BLOOD SPECIMENOrdering Facility: [facility] Address: [address] [place] [address] Performed By: #### 2 4321-2 ####[facility] LABORATORYCLIA [id number] [place] [address] [place] Chloride [Moles/Vol] 108 mmol/L High 98-107 [facility] Comment on above: Order Comment: Speci men Type: BLOOD SPECIMENOrdering Facility: [facility] Address: [address] [place] [address] Performed By: #### 2 4321-2 ####[facility] LABORATORYCLIA [id number] [place] [address] [place] CO2 [Moles/Vol] 22 mmol/L Normal 22-30 [facility] Comment on above: Order Comment: Brooksi men Type: BLOOD SPECIMENOrdering Facility: [facility] Address: [address] [place] [address] Performed By: #### 2 4321-2 ####[facility] LABORATORYCLIA [id number] [address] [place] Creatinine [Mass/Vol] 5.23 mg/dL High 0.73-1.22 [facility] Comment on above: Order Comment: Brooksi men Type: BLOOD SPECIMENOrdering Facility: [facility] Address: [address] [place] [address] Performed By: #### 2 4321-2 ####[facility] LABORATORYCLIA [id number] [address] Creatinine and Glomerular filtration rate.predicted panel (S/P/Bld) 12 mL/min/1.73m??? Low >=60 [facility] Comment on above: Order Comment: Luz vaughan Type: BLOOD SPECIMENOrdering Facility: [facility] Address: [address] [place] [address] Result Comment: Breanne mated Glomerular Filtration Rate (eGFR) is calculated using the 2020 CKD-EPI creatinine equation. This equation utilizes serum creatinine, sex, and age as parameters. The creatinine assay has traceable calibration to isotope dilution-mass spectrometry. Refer to KDIGO guidelines for clinical interpretation. In patients with unstable renal function, e.g. those with acute kidney injury, the eGFR may not accurately reflect actual GFR. Performed By: #### 2 4321-2 ####[facility] LABORATORYCLIA [id number] [address] [place] Glucose [Mass/Vol] 61 mg/dL Low 74-99 [facility] Comment on above: Order Comment: Luz men Type: BLOOD SPECIMENOrdering Facility: [facility] Address: [address] [place] [address] Result Comment: The [place] Diabetes Association (ADA) provides guidance for cutoff values for fasting glucose and random glucose. The ADA defines fasting as no caloric intake for at least 8 hours. Fasting plasma glucose results between 100 to 125 mg/dL indicate increased risk for diabetes (prediabetes).Fasting plasma glucose results greater than or equal to 126 mg/dL meet the criteria for diagnosis of diabetes. In the absence of unequivocal hyperglycemia, results should be confirmed by repeat testing. In a patient with classic symptoms of hyperglycemia or hyperglycemic crisis, random plasma glucose results greater than or equal to 200 mg/dL meet the criteria for diagnosis of diabetes.Reference: Standards of Medical Care in Diabetes 2016, [place] [employer]. Diabetes Care. 2016.39(Suppl 1). Performed By: #### 2 4321-2 ####[facility] LABORATORYCLIA [id number] [place] [address] [place] Potassium [Moles/Vol] 5.0 mmol/L Normal 3.7-5.1 [facility] Comment on above: Order Comment: [facility] Type: BLOOD SPECIMENOrdering Facility: [facility] Address: [address] [place] [address] Performed By: #### 2 4321-2 ####[facility] LABORATORYCLIA [id number] [place] [address] [place] Sodium [Moles/Vol] 143 mmol/L Normal 136-144 [facility] Comment on above: Order Comment: Brooksi men Type: BLOOD SPECIMENOrdering Facility: [facility] Address: [address] [place] [address] Performed By: #### 2 4321-2 ####[facility] LABORATORYCLIA [id number] [place] [address] [place] Urea nitrogen [Mass/Vol] 77 mg/dL High 9-24 [facility] Comment on above: Order Comment: Brooksi men Type: BLOOD SPECIMENOrdering Facility: [facility] Address: [address] [place] [address] Performed By: #### 2 4321-2 ####[facility] LABORATORYCLIA [id number] [address] [place] CASE MANAGEMon 07-12-2024 CASE MANAGEM Normal [facility] CBC panel Auto (Bld)on 07-12 Erythrocyte distribution width (RBC) [Ratio] 13.2 % Normal 11.5-15.0 [facility] Comment on above: Order Comment: Speci men Type: BLOOD SPECIMENOrdering Facility: [facility] Address: [address] [place] [address] Performed By: #### 5 8410-2 ####[facility] LABORATORYCLIA [id number] [address] Hematocrit (Bld) [Volume fraction] 31.8 % Low 39.0-51.0 [facility] Comment on above: Order Comment: Speci men Type: BLOOD SPECIMENOrdering Facility: [facility] Address: [address] [place] [address] Performed By: #### 5 8410-2 ####[facility] LABORATORYCLIA [id number] [address] Hemoglobin (Bld) [Mass/Vol] 10.4 g/dL Low 13.0-17.0 [facility] Comment on above: Order Comment: Speci men Type: BLOOD SPECIMENOrdering Facility: [facility] Address: [address] [place] [address] Performed By: #### 5 8410-2 ####[facility] LABORATORYCLIA [id number] [address] MCH (RBC) [Entitic mass] 28.7 pg Normal 26.0-34.0 [facility] Comment on above: Order Comment: Speci men Type: BLOOD SPECIMENOrdering Facility: [facility] Address: [address] [place] [address] Performed By: #### 5 8410-2 ####[facility] LABORATORYCLIA [id number] [address] MCHC (RBC) [Mass/Vol] 32.7 g/dL Normal 30.5-36.0 [facility] Comment on above: Order Comment: Speci men Type: BLOOD SPECIMENOrdering Facility: [facility] Address: [address] [place] [address] Performed By: #### 5 8410-2 ####[facility] LABORATORYCLIA [id number] [place] [address] [place] MCV (RBC) [Entitic vol] 87.8 fL Normal 80.0-100.0 [facility] Comment on above: Order Comment: Speci men Type: BLOOD SPECIMENOrdering Facility: [facility] Address: [address] [place] [address] Performed By: #### 5 8410-2 ####[facility] LABORATORYCLIA [id number] [address] [place] Nucleated RBC (Bld) [#/Vol] 10*3/uL Normal <0.01 [facility] Comment on above: Order Comment: Speci men Type: BLOOD SPECIMENOrdering Facility: [facility] Address: [address] [place] [address] Performed By: #### 5 8410-2 ####[facility] LABORATORYCLIA [id number] [address] [place] Platelet mean volume (Bld) [Entitic vol] 9.2 fL Normal 9.0-12.7 [facility] Comment on above: Order Comment: Speci men Type: BLOOD SPECIMENOrdering Facility: [facility] Address: [address] [place] [address] Performed By: #### 5 8410-2 ####[facility] LABORATORYCLIA [id number] [address] [place] Platelets (Bld) [#/Vol] 227 10*3/uL Normal 150-400 [facility] Comment on above: Order Comment: Speci men Type: BLOOD SPECIMENOrdering Facility: [facility] Address: [address] [place] [address] Performed By: #### 5 8410-2 ####[facility] LABORATORYCLIA [id number] [place] [address] [place] [facility] [place] RBC (Bld) [#/Vol] 3.62 10*6/uL Low 4.20-6.00 [facility] Comment on above: Order Comment: Luz vaughan Type: BLOOD SPECIMENOrdering Facility: [facility] Address: [address] [place] [id number] Performed By: #### 5 8410-2 ####[facility] LABORATORYCLIA [id number] [address] WBC (Bld) [#/Vol] 5.32 10*3/uL Normal 3.70-11.00 [facility] Comment on above: Order Comment: Luz vaughan Type: BLOOD SPECIMENOrdering Facility: [facility] Address: [address] [place] [id number] Performed By: #### 5 8410-2 ####ADKINS LABORATORYCLIA [id number] [address] CNPNon 07-12-2024 CNPN Telephone (HCSIND) -- JOSÉ MANUEL ASHTON ([id number]) 1960 M [facility] Date Time Provider Department 07/12/24 JUDITH CAT During your visit today, we recorded the following information about you: Judith Cat LPN 07/12/2024 10:24 AM Signed Bunny Scott MD Please advise if you are agreeable to signing and following for [facility] services? Our Clinicians will be sending the Plan of Care to you for review and approval. They will reach out for any appropriate orders required to provide home care services for the patient. We are not able to initiate [facility] services without a following provider. Home care clinicians may also obtain orders from [facility] Virtualist Providers Thank you and we would be happy to answer any questions. Judith Cat LPN 07/12/2024 10:23 AM Allergies As of Date: 07/12/2024 Noted Allergy Reaction PENICILLINS 07/24/2020 16 - Unknown Comments: Pt states he thinks he had a reaction as a child Date Reviewed: 07/12/2024 Reviewed by: Christina Vincent, LEATHA - Fully Assessed Reason for Visit: Home Care [4073] Cmt: to Follow Prescriptions as of 07/12/2024 - sodium zirconium cyclosilicate (LOKELMA) 10 gram oral packet Take 10 g by mouth one time only. Mix powder in 45 mL of water, stir and drink immediately. - oxyCODONE IR (ROXICODONE) 10 mg tab Take 10 mg by mouth every 6 hours. - ergocalciferol 50,000 unit capsule (VITAMIN D2, DRISDOL) Take 1 capsule by mouth one time a week. - dapagliflozin propanediol (FARXIGA) 10 mg tablet Take 1 tablet by mouth daily with breakfast. - diazePAM (VALIUM) 10 mg tablet Take 10 mg by mouth two times a day as needed for anxiety. - insulin lispro (HUMALOG KWIKPEN INSULIN) 100 unit/mL Inject 8 Units subcutaneously three times a day before meals. SLIDING SCALE: bld sugar 60-124=0 units 125-150=2 units, 151-200=4 units, 201-250=6 untis 251-300=8 units, 301-350=10 units, 351-400=12 units - amLODIPine (NORVASC) 5 mg tablet Take 1 tablet by mouth two times a day. - carvedilol (COREG) 25 mg tablet Take 1 tablet by mouth two times a day with meals. - cyclobenzaprine (FLEXERIL) 10 mg tablet Take 1 tablet by mouth three times a day as needed for muscle spasm. - hydrALAZINE (APRESOLINE) 25 mg tablet Take 1 tablet by mouth two times a day. - pantoprazole DR (PROTONIX) 40 mg tablet Take 1 tablet by mouth once daily. - doxazosin (CARDURA) 1 mg tablet Take 1 tablet by mouth daily at bedtime. - DULoxetine (CYMBALTA) 30 mg capsule Take 1 capsule by mouth once daily. - insulin glargine (BASAGLAR KWIKPEN U-100 INSULIN) 100 unit/mL (3 mL) Inject 24 Units subcutaneously daily at bedtime. - insulin lispro (HUMALOG KWIKPEN) 100 unit/mL Inject 8 Units subcutaneously three times a day before meals. - pen needle,diabetic dual safty (BD AUTOSHIELD DUO PEN NEEDLE) 30 gauge x 3/16" ndle 1 Applicator four times daily. Facility-Administered Medications as of 07/12/2024 - lactated ringers iv infusion - doxazosin 2 mg tab(s) (CARDURA) - sodium zirconium cyclosilicate 10 g oral packet (LOKELMA) - hydrALAZINE 50 mg tab(s) (APRESOLINE) - oxyCODONE IR 10 mg tab(s) (ROXICODONE) - dextrose 40 % 15 g - glucagon 1 mg injection - dextrose 10% iv bolus - diazePAM 10 mg tab(s) (VALIUM) - amLODIPine 5 mg tab(s) (NORVASC) - carvedilol 25 mg tab(s) (COREG) - insulin glargine 24 Units pen (long acting) - pantoprazole DR 40 mg tab(s) (PROTONIX) - DULoxetine 30 mg cap(s) (CYMBALTA) - cyclobenzaprine 10 mg tab(s) (FLEXERIL) - dextrose 40 % 15 g - glucagon 1 mg injection - dextrose 10% iv bolus - NaCl 0.9% iv flush bag - ondansetron orally disintegrating 4 mg tab(s) (ZOFRAN ODT) - ondansetron (PF) 4 mg injection (ZOFRAN) - aluminum-magnesium hydroxide-simethicone 200-200-20 mg/5 mL 30 mL - docusate sodium 100 mg cap(s) (COLACE) - magnesium hydroxide 400 mg/5 mL 30 mL (MOM) - acetaminophen 650 mg tab(s) (TYLENOL) - insulin lispro injection (rapid acting) (ADMElog) - insulin lispro injection (rapid acting) (ADMElog) - sodium chloride 0.9 % (flush) 2-10 mL (BD POSIFLUSH) Meds Comments as of 11/15/2023: SEE EMAR FOR MEDICATIONS TAKEN LAST 04/19/21 07/31/20 The medications are managed by this patient by: PATIENT Miranda Lewis, OA 11/08/[address] Scott: "Patient to continue to use the SSI only, no regular scheduled Insulin dosing at this time." Patient's sister has been notified and verbalizes understanding." Richard Hinds RN Problem List As Of Date 07/12/2024 Noted Resolved Vitamin D deficiency [E55.9] 02/20/2020 Marijuana use [F12.90] 02/20/2020 Microalbuminuria [R80.9] 02/20/2020 Obesity, Class II, BMI 35-39.9 [E66.812] 02/20/2020 05/25/2023 Chronic bilateral low back pain [M54.50, G89.29]02/20/2020 Weakness [R53.1] 05/05/2020 06/15/2020 Decreased mobility and endurance [Z74.09] 05/05/2020 06/15/2020 Severe episode of r (more content not included)... Normal [facility] CONSULT PROGon 07-12-2024 CONSULT PROG [facility] CT BIOPSY RENALon 07-12-2024 CT BIOPSY RENAL [facility] PT EDon 07-12-2024 PT ED [facility] Pathology biopsy report Kade (Tiss)on 07-12-2024 ADDENDUM 1: [facility] Comment on above: Order Comment: Speci men Type: TISSUE SPECIMENOrdering Facility: [facility] Address: [address] [place] [address] Result Comment: A Co cano red stain for amyloid is negative. The diagnosis is unchanged.Addendum electronically signed by Leida Jones MD on 07/17/2024 at 1643 EDT Performed By: #### 6 6121-5 ####[facility] LABCLIA [id number] [place] [address] [place] AP DISCLAIMER [facility] Comment on above: Order Comment: Speci men Type: TISSUE SPECIMENOrdering Facility: [facility] Address: [address] [place] [address] Result Comment: Naya Gonzalez Test (LDT) Disclaimer:Performance characteristics of immunohistochemical, immunofluorescent, and chromogenic in-situ hybridization tests have been determined by the performing laboratory within [facility]'s Antoine Garcia Pathology and Laboratory Medicine Department ([facility], [facility], [facility], [facility], [facility], [facility], or [facility]) in a manner consistent with CLIA requirements. One or more of these tests may not have been cleared or approved by the FDA. [facility] is regulated under CLIA as qualified to perform high-complexity testing. These tests are used for clinical purposes. These should not be regarded as investigational or for research. Positive and negative controls stain appropriately. Performed By: #### 6 6121-5 ####[facility] LABIA [id number] [place] [id number] [place] CASE REPORT Normal [facility] Comment on above: Order Comment: Speci men Type: TISSUE SPECIMENOrdering Facility: [facility] Address: [address] [place] [address] Result Comment: Surg ica Pathology Report Case: [id number] Provider: Luis Carlos Garcia MD Collected: 07/12/2024 02:38 PMOrdering Location: [facility] Received: 07/12/2024 02:55 PM SouthPathologist: Leida Jones MDSpecimen: Kidney, Right, Biopsy Performed By: #### 6 6121-5 ####[facility] LABIA [id number] [address] [place] CLINICAL HISTORY 63-year-old man with history of diabetes, presenting with TARYN on CKD. Creatinine 5.71, albumin 3.2, UA protein 3+/blood 1+, UPCR 7.24, JAMARCUS negative, C3/C4 within normal limits, ANCA negative, kappa lambda ratio within normal limits. Normal [facility] Comment on above: Order Comment: Speci men Type: TISSUE SPECIMENOrdering Facility: [facility] Address: [address] [place] [address] Performed By: #### 6 6121-5 ####[facility] LABIA [id number] [address] [place] DIAGNOSIS COMMENT Normal [facility] Comment on above: Order Comment: Speci men Type: TISSUE SPECIMENOrdering Facility: [facility] Address: [address] [place] [address] Performed By: #### 6 6121-5 ####[facility] LABCLIA [id number] [address] FINAL DIAGNOSIS [facility] Comment on above: Order Comment: Speci men Type: TISSUE SPECIMENOrdering Facility: [facility] Address: [address] [place] [address] Result Comment: Tomás ross, Right, Biopsy:- 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 See comment.- Tubular atrophy and interstitial fibrosis, severe.- Arteriosclerosis, moderate, and arteriolosclerosis, severe. at 1508 EDT Performed By: #### 6 6121-5 ####[facility] LABCLIA [id number] [address] [place] FINAL PERFORMING LAB Normal [facility] Comment on above: Order Comment: Speci men Type: TISSUE SPECIMENOrdering Facility: [facility] Address: [address] [place] [address] Result Comment: Diag nostic interpretation performed at: [facility], [address] [place] [address], [place] [address] CLIA# [id number] Director: Teja Pedraza MD Performed By: #### 6 6121-5 ####[facility] LABCLIA [id number] [address] [place] GROSS DESCRIPTION [facility] Comment on above: Order Comment: Speci men Type: TISSUE SPECIMENOrdering Facility: [facility] Address: [address] [place] [address] Result Comment: Tomás ross, Right, BiopsyReceived fresh on saline moistened Telfa gauze are two segments of cylindrical flores, soft tissue aggregating to 2.3 x 0.2 x 0.1 cm. A portion is frozen and kept frozen for direct immunofluorescence. A portion is submitted for electron microscopy. A portion is submitted in formalin for light microscopy in cassette A2.Gross examination performed at [facility], [address] [place], [place] [address], [place] [address]G[place] July 12, 2024 7:09 PM Performed By: #### 6 6121-5 ####[facility] [id number] [place] [address] [place] MICROSCOPIC DESCRIPTION [facility] Comment on above: Order Comment: Speci men Type: TISSUE SPECIMENOrdering Facility: [facility] Address: [place] [address] Result Comment: Sect ions are stained for H&E, PAS, trichrome, and Campos, revealing 2 core portions of renal cortex and medulla. Approximately 13 glomeruli are sampled, 6 of which are globally sclerotic and 1 of which is segmentally sclerotic. PAS and Campos stains highlight nodular mesangial expansion, but aggressive proliferative features are not appreciated. Tubules display loss of brush borders. There is patchy chronic inflammation within areas of fibrosis. A trichrome stain demonstrates severe tubular atrophy and interstitial fibrosis. Arteries show moderate intimal sclerosis and arterioles show severe hyalinosis. A Congo red stain for amyloid is pending and will be reported in an addendum.Immunofluorescence staining is performed for IgG, IgA, IgM, C3, C1q, albumin, kappa, and lambda. An additional 3 glomeruli are sampled, 2 of which are globally sclerotic. Glomeruli demonstrate staining in a scarring pattern for IgM, C3, and C1q, and are negative for other immunoreactants. [place] and lambda stain equally throughout the tubulointerstitium and albumin highlights background tissue architecture. Immunofluorescence staining for kappa and lambda is performed on formalin fixed paraffin-embedded tissue following pronase digestion. Glomeruli display no significant staining for either immunoreactant.Tissue for electron microscopy samples 6 additional glomeruli, 2 of which are globally sclerotic. Ultrastructurally, glomerular basement membranes are thickened. Podocyte foot process effacement is moderate to severe. Significant immune type electron-dense deposits are not identified within glomeruli or the tubulointerstitium. Performed By: #### 6 6121-5 ####[facility] [id number] [place] [address] [place] ALBUMIN/CREATININE RATIO, UR INEon 07-11-2024 Albumin DL <= 20 mg/L (U) [Mass/Vol] 1966.9 mg/L [facility] Comment on above: Order Comment: Speci men Type: URINE SPECIMENOrdering Facility: [facility] Address: [address] [place] [address] Performed By: #### 3 5677-4, 2890-2, UACR, 98734-0, 32790-3 ####[facility] LABCLIA [id number] [place] [address] [place] Albumin/Creatinine (U) [Mass ratio] 4276 mg/g High <30 [facility] Comment on above: Order Comment: Speci men Type: URINE SPECIMENOrdering Facility: [facility] Address: [address] [place] [address] Result Comment: Adul t Male and Female Nephrotic Criteria:<30 mg/g is considered normal to mildly oikuuvijn03-577 mg/g is considered moderately increased>300 mg/g is considered severely increasedKDIGO. (2013). KDIGO 2012 Clinical Practice Guideline for the Evaluation and Management of Chronic Kidney Disease. Official Journal of the International Society of Nephrology, 3(1), 1-150. Performed By: #### 3 5677-4, 2890-2, UACR, 59778-1, 10777-0 ####[facility] LABIA [id number] [place] [address] [place] JAMARCUS BY IFA SCREENon 07-12-19 25 Nuclear Ab Ql (S) Negative Normal Negative [facility] Comment on above: Order Comment: Speci men Type: BLOOD SPECIMENOrdering Facility: [facility] Address: [address] [place] [address] Result Comment: Anti -nuclear antibody test is used as an aid in diagnosis of systemic autoimmune diseases. Where positive and clinically warranted, follow-up using disease-specific testing is recommended. Low positive titers are not uncommon with advanced age, certain chronic infections, and malignancies among others.Test methodology: Indirect fluorescence immunoassay (IFA) using HEp-2 cells. Performed By: #### A NAIFS, ANCA ####[facility] LABCLIA [id number] [place] [id number] [place] ANTI NEUTRO CYTO ABon 2024 INTERPRETATION (ANCA) Equivocal staining seen on the ethanol (indirect immunofluorescence screen) slide but negative results on follow up confirmatory testing. Anti-nuclear antibody test may be considered. Clinical correlation is required. Normal [facility] Comment on above: Order Comment: Speci men Type: BLOOD SPECIMENOrdering Facility: [facility] Address: [address] [place] [address] Performed By: #### A NAIFS, ANCA ####[facility] LABCLIA [id number] [place] [address] [place] Myeloperoxidase Ab Qn (S) <0.2 Normal <1.0 [facility] Comment on above: Order Comment: Speci men Type: BLOOD SPECIMENOrdering Facility: [facility] Address: [address] [place] [address] Performed By: #### A NAIFS, ANCA ####[facility] LABCLIA [id number] [place] [address] [place] Neutrophil cytoplasmic Ab.classic IF Ql (S) Negative Normal Negative [facility] Comment on above: Order Comment: Speci men Type: BLOOD SPECIMENOrdering Facility: [facility] Address: [address] [place] [address] Performed By: #### A NAIFS, ANCA ####[facility] LABCLIA [id number] [place] [address] [place] Neutrophil cytoplasmic Ab.perinuclear IF Ql (S) Negative Normal Negative [facility] Comment on above: Order Comment: Speci men Type: BLOOD SPECIMENOrdering Facility: [facility] Address: [address] [place] [address] Performed By: #### A NAIFS, ANCA ####[facility] LABCLIA [id number] [place] [id number] [place] Proteinase 3 Ab Qn (S) <0.2 Normal <1.0 [facility] Comment on above: Order Comment: Speci men Type: BLOOD SPECIMENOrdering Facility: [facility] Address: [address] [place] [address] Performed By: #### A NAIFS, ANCA ####[facility] LABCLIA [id number] [place] [address] [place] STAFF REVIEW (ANCA) Reviewed by Moe Bailey, Ph.D D([facility] Comment on above: Order Comment: Speci men Type: BLOOD SPECIMENOrdering Facility: [facility] Address: [address] [place] [address] Performed By: #### A NAIFS, ANCA ####[facility] LABCLIA [id number] [place] [address] [place] Basic metabolic 2000 panelon 07-11-2024 Anion gap [Moles/Vol] 14 mmol/L Normal 8-15 [facility] Comment on above: Order Comment: Speci men Type: BLOOD SPECIMENOrdering Facility: [facility] Address: [address] [place] [address] Performed By: #### 2 4321-2 ####[facility]ATORYCLIA [id number] [place] [address] [place] Calcium [Mass/Vol] 8.9 mg/dL Normal 8.5-10.2 [facility] Comment on above: Order Comment: Speci men Type: BLOOD SPECIMENOrdering Facility: [facility] Address: [address] [place] [address] Performed By: #### 2 4321-2 ####[facility]ORATORYCLIA [id number] [place] [address] [place] Chloride [Moles/Vol] 109 mmol/L High 98-107 [facility] Comment on above: Order Comment: Speci men Type: BLOOD SPECIMENOrdering Facility: [facility] Address: [address] [place] [address] Performed By: #### 2 4321-2 ####[facility]ORATORYCLIA [id number] [place] [id number] [place] CO2 [Moles/Vol] 22 mmol/L Normal 22-30 [facility] Comment on above: Order Comment: Speci men Type: BLOOD SPECIMENOrdering Facility: [facility] Address: [address] [place] [address] Performed By: #### 2 4321-2 ####[facility]ORATORYCLIA [id number] [address] [place] Creatinine [Mass/Vol] 6.10 mg/dL High 0.73-1.22 [facility] Comment on above: Order Comment: Luz men Type: BLOOD SPECIMENOrdering Facility: [facility] Address: [address] [place] [address] Performed By: #### 2 4321-2 ####[facility]ORATORYCLIA [id number] [address] Creatinine and Glomerular filtration rate.predicted panel (S/P/Bld) 10 mL/min/1.73m??? Low >=60 [facility] Comment on above: Order Comment: Luz clement Type: BLOOD SPECIMENOrdering Facility: [facility] Address: [address] [place] [address] Result Comment: Breanne mated Glomerular Filtration Rate (eGFR) is calculated using the 2020 CKD-EPI creatinine equation. This equation utilizes serum creatinine, sex, and age as parameters. The creatinine assay has traceable calibration to isotope dilution-mass spectrometry. Refer to KDIGO guidelines for clinical interpretation. In patients with unstable renal function, e.g. those with acute kidney injury, the eGFR may not accurately reflect actual GFR. Performed By: #### 2 4321-2 ####[facility]ATORYCLIA [id number] [address] [place] Glucose [Mass/Vol] 128 mg/dL High 74-99 [facility] Comment on above: Order Comment: Brooksjonas vaughan Type: BLOOD SPECIMENOrdering Facility: [facility] Address: [address] [place] [address] Result Comment: The [place] Diabetes [employer] (ADA) provides guidance for cutoff values for fasting glucose and random glucose. The ADA defines fasting as no caloric intake for at least 8 hours. Fasting plasma glucose results between 100 to 125 mg/dL indicate increased risk for diabetes (prediabetes).Fasting plasma glucose results greater than or equal to 126 mg/dL meet the criteria for diagnosis of diabetes. In the absence of unequivocal hyperglycemia, results should be confirmed by repeat testing. In a patient with classic symptoms of hyperglycemia or hyperglycemic crisis, random plasma glucose results greater than or equal to 200 mg/dL meet the criteria for diagnosis of diabetes.Reference: Standards of Medical Care in Diabetes 2016, [place] [employer]. Diabetes Care. 2016.39(Suppl 1). Performed By: #### 2 4321-2 ####[facility]ORATORYCLIA [id number] [place] [address] [place] Potassium [Moles/Vol] 5.2 mmol/L High 3.7-5.1 [facility] Comment on above: Order Comment: Luz vaughan Type: BLOOD SPECIMENOrdering Facility: [facility] Address: [address] [place] [address] Performed By: #### 2 4321-2 ####[facility]ORATORYCLIA [id number] [place] [address] [place] Sodium [Moles/Vol] 145 mmol/L High 136-144 [facility] Comment on above: Order Comment: Luz vaughan Type: BLOOD SPECIMENOrdering Facility: [facility] Address: [address] [place] [address] Performed By: #### 2 4321-2 ####[facility]ATORYCLIA [id number] [place] [address] [place] Urea nitrogen [Mass/Vol] 85 mg/dL High 9-24 [facility] Comment on above: Order Comment: Luz vaughan Type: BLOOD SPECIMENOrdering Facility: [facility] Address: [address] [place] [address] Performed By: #### 2 4321-2 ####[facility]ATORYCLIA [id number] [place] [address] [place] C3 SerPl-mCncon 07-11-2024 Complement C3 [Mass/Vol] 139 mg/dL Normal 86-166 [facility] Comment on above: Order Comment: Luz vaughan Type: BLOOD SPECIMENOrdering Facility: [facility] Address: [address] [place] [address] Performed By: #### 4 498-2, 4485-9, 28808-02 ####[facility] LABCLIA [id number] [place] [address] [place] C4 SerPl-mCncon 07-11-2024 Complement C4 [Mass/Vol] 21 mg/dL Normal 13-46 [facility] Comment on above: Order Comment: Speci men Type: BLOOD SPECIMENOrdering Facility: [facility] Address: [address] [place] [address] Performed By: #### 4 498-2, 546-9, 2884-05 ####[facility] LABCLIA [id number] [place] [address] [place] CASE MGT INIT ASSESon 2024 CASE MGT INIT [facility] CBC panel Auto (Bld)on 07-11 Erythrocyte distribution width (RBC) [Ratio] 13.2 % Normal 11.5-15.0 [facility] Comment on above: Order Comment: Speci men Type: BLOOD SPECIMENOrdering Facility: [facility] Address: [address] [place] [address] Performed By: #### 5 8410-2 ####[facility]ATORYCLIA [id number] [address] [place] Hematocrit (Bld) [Volume fraction] 32.8 % Low 39.0-51.0 [facility] Comment on above: Order Comment: Speci men Type: BLOOD SPECIMENOrdering Facility: [facility] Address: [address] [place] [address] Performed By: #### 5 8410-2 ####[facility]ORYCLIA [id number] [address] [place] Hemoglobin (Bld) [Mass/Vol] 10.8 g/dL Low 13.0-17.0 [facility] Comment on above: Order Comment: Speci men Type: BLOOD SPECIMENOrdering Facility: [facility] Address: [address] [place] [address] Performed By: #### 5 8410-2 ####[facility]ATORYCLIA [id number] [address] MCH (RBC) [Entitic mass] 28.9 pg Normal 26.0-34.0 [facility] Comment on above: Order Comment: Speci men Type: BLOOD SPECIMENOrdering Facility: [facility] Address: [address] [place] [address] Performed By: #### 5 8410-2 ####[facility]ORYCLIA [id number] [address] MCHC (RBC) [Mass/Vol] 32.9 g/dL Normal 30.5-36.0 [facility] Comment on above: Order Comment: Speci men Type: BLOOD SPECIMENOrdering Facility: [facility] Address: [address] [place] [address] Performed By: #### 5 8410-2 ####[facility]ORYCLIA [id number] [address] MCV (RBC) [Entitic vol] 87.7 fL Normal 80.0-100.0 [facility] Comment on above: Order Comment: Speci men Type: BLOOD SPECIMENOrdering Facility: [facility] Address: [address] [place] [address] Performed By: #### 5 8410-2 ####[facility]ORYCLIA [id number] [address] Nucleated RBC (Bld) [#/Vol] 10*3/uL Normal <0.01 [facility] Comment on above: Order Comment: Speci men Type: BLOOD SPECIMENOrdering Facility: [facility] [facility] Address: [address] [place] [address] Performed By: #### 5 8410-2 ####[facility] LABORATORYCLIA [id number] [address] Platelet mean volume (Bld) [Entitic vol] 9.2 fL Normal 9.0-12.7 [facility] Comment on above: Order Comment: Speci men Type: BLOOD SPECIMENOrdering Facility: [facility] Address: [address] [place] [address] Performed By: #### 5 8410-2 ####[place] LABORATORYCLIA [id number] [place] [address] [facility] Platelets (Bld) [#/Vol] 248 10*3/uL Normal 150-400 [facility] Comment on above: Order Comment: Speci men Type: BLOOD SPECIMENOrdering Facility: [facility] Address: [address] [place] [address] Performed By: #### 5 8410-2 ####[facility] LABORATORYCLIA [id number] [place] [address] [place] RBC (Bld) [#/Vol] 3.74 10*6/uL Low 4.20-6.00 [facility] Comment on above: Order Comment: Speci men Type: BLOOD SPECIMENOrdering Facility: [facility] Address: [address] [place] [address] Performed By: #### 5 8410-2 ####[facility] LABORATORYCLIA [id number] [address] [place] WBC (Bld) [#/Vol] 5.12 10*3/uL Normal 3.70-11.00 [facility] Comment on above: Order Comment: Speci men Type: BLOOD SPECIMENOrdering Facility: [facility] Address: [address] [place] [address] Performed By: #### 5 8410-2 ####[facility] LABORATORYCLIA [id number] [place] [id number] [facility] CONSULTon 07-11-2024 CONSULT Normal [facility] Creat ?Tm Ur-mCncon 07-12-19 25 Creatinine (U) [Mass/Vol] 46.0 mg/dL Normal 20.0-300.0 [facility] Comment on above: Order Comment: Speci men Type: URINE SPECIMENOrdering Facility: [facility] Address: [address] [place] [address] Performed By: #### 3 5677-4, 2890-2, UACR, 56604-3, 22240-9 ####[facility] LABCLIA [id number] [address] [place] DNA ANTIBODY DS BLDon 2024 DNA ANTIBODY 9 IU/mL Normal <=200 [facility] Comment on above: Order Comment: Speci men Type: BLOOD SPECIMENOrdering Facility: [facility] Address: [address] [place] [address] Result Comment: Nega tive: <200 IU/mLEquivocal: 201-300 IU/mLModerate Positive: 301-800 IU/mLStrong Positive: >801 IU/mL Performed By: #### D NAAB ####[facility] LABCLIA [id number] [place] [address] [place] DNA ANTIBODY QUALITATIVE INTERPRETATION Negative Normal Negative [facility] Comment on above: Order Comment: Speci men Type: BLOOD SPECIMENOrdering Facility: [facility] Address: [address] [place] [address] Performed By: #### D NAAB ####[facility] LABCLIA [id number] [place] [address] [place] GBM IGG AUTOANTIBODYon 07-11 GBM IGG AB, (BEAD) 0 AU/mL Normal 0-19 [facility] Comment on above: Order Comment: Speci men Type: BLOOD SPECIMENOrdering Facility: [facility] Address: [address] [place] [address] Result Comment: INTE RPRETIVE INFORMATION: GBM Ab, IgG by Multiplex Bead Assay 19 AU/mL or Less ......... Negative 20-25 AU/mL .............. Equivocal 26 AU/mL or Greater ...... PositiveThe presence of anti-glomerular basement membrane (GBM) antibodiesby Multiplex Bead Assay may aid in the diagnosis of Goodpasturesyndrome. False positive results may occur due to reactivityagainst other chains of type IV collagen. If Multiplex Bead Assayis negative but there is a strong suspicion for disease, renalbiopsy may be indicated. A renal biopsy may also be essential insuspected Goodpasture disease with renal involvement, allowingdiagnostic confirmation and assessment of renal prognosis.Performed By: [address] [place], [place] [id number] Director: Derian Moreno MD, PhDCLIA Number: [id number] Performed By: #### G [facility] ####[facility] HOSPITALIA [id number] [place] [address] HISTORY PHYSICALon 5 HISTORY PHYSICAL Normal [facility] KAPPA/MEDELLIN,FREE,SERon 2024 Immunoglobulin light chains.kappa.free (S) [Mass/Vol] 81.2 mg/L High 3.3-19.4 [facility] Comment on above: Order Comment: Speci men Type: BLOOD SPECIMENOrdering Facility: [facility] Address: [address] [place] [address] Result Comment: Rare ly, increased serum free light chains levels may not be detected or accurately quantified due to prozone phenomenon or in high viscosity samples using this immunoturbidimetric assay. Correlation with other laboratory results and clinical findings is recommended.The [place] Free Light Chain was performed using the Binding Site Optilite immunoturbidimetric method. Result obtained with different assay methods or kits cannot be used interchangeably. Performed By: #### K LFRS ####[facility] LABCLIA [id number] [place] [address] [place] Immunoglobulin light chains.kappa/Immunoglo bulin light chains.lambda (S) [Mass ratio] 1.56 Normal 0.26-1.65 [facility] Comment on above: Order Comment: Speci men Type: BLOOD SPECIMENOrdering Facility: [facility] Address: [address] [place] [address] Performed By: #### K LFRS ####[facility] LABCLIA [id number] [place] [address] [place] Immunoglobulin light chains.lambda.free [Mass/Vol] 52.1 mg/L High 5.7-26.3 [facility] Comment on above: Order Comment: Speci men Type: BLOOD SPECIMENOrdering Facility: [facility] Address: [address] [place] [address] Result Comment: Rare ly, increased serum free light chains levels may not be detected or accurately quantified due to prozone phenomenon or in high viscosity samples using this immunoturbidimetric assay. Correlation with other laboratory results and clinical findings is recommended.The L[place] Free Light Chain was performed using the Binding Site Optilite immunoturbidimetric method. Result obtained with different assay methods or kits cannot be used interchangeably. Performed By: #### K LFRS ####[facility] LABCLIA [id number] [address] [place] Osmolality Uron 07-11-2024 Osmolality (U) [Osmolality] 398 mosm/kg Normal 50-1200 [facility] Comment on above: Order Comment: Speci men Type: URINE SPECIMENOrdering Facility: [facility] Address: [address] [place] [address] Performed By: #### 2 695-5 ####[facility] LABCLIA [id number] [address] [place] PLA2R, IMMUNOFLUORESCENCE, S (REFLEX ONLY)on 07-11-2024 PLA2R, IMMUNOFLUORESCENCE, S Negative Normal Negative [facility] Comment on above: Order Comment: Speci men Type: BLOOD SPECIMENOrdering Facility: [facility] Address: [address] [place] [address] Result Comment: PLA2 R is Negative ADDITIONAL INFORMATION This test was developed and its performance characteristicsdetermined by [facility] in a manner consistent withCLIA requirements. This test has not been cleared orapproved by the U.S. Food and Drug Administration.Test Performed by:[place] [id number] Director: Soy Loomis Ph.D.; CLIA# [id number] Performed By: #### P MNDCS, PLA2RI, THSD7A ####[facility] LABCLIA [id number] [place], [place] [id number] PRIMARY MEMBRANEOUS NEPHROPA THY DIAGNOSTIC CASCADE, SERon 07-11-2024 PHOSPHOLIPASE A2 RECEPTOR, FABIENNE, S <2 Normal [facility] Comment on above: Order Comment: Speci men Type: BLOOD SPECIMENOrdering Facility: [facility] Address: [address] [place] [address] Result Comment: ---- REFERENCE VALUE <14 RU/mL: Negative>=14 to <20 RU/mL: Borderline>=20 RU/mL: PositiveTest Performed by:[address] Director: Soy Loomis Ph.D.; CLIA# [id number] Performed By: #### P MNDCS, PLA2RI, THSD7A ####[facility] RE[facility] LABCLIA [id number] [place], [place] [address] PROTEIN ELECTROPHORESIS SERU M WITH TATIANA (P)on 07-11-2024 Albumin [Mass/Vol] 3.83 g/dL Normal 3.43-5.41 [facility] Comment on above: Order Comment: Speci men Type: BLOOD SPECIMENOrdering Facility: [facility] Address: [address] [place] [address] Performed By: #### L [id number] ####[facility] LABCLIA [id number] [place] [address] [place] Alpha 1 globulin Elph [Mass/Vol] 0.27 g/dL Normal 0.18-0.43 [facility] Comment on above: Order Comment: Speci men Type: BLOOD SPECIMENOrdering Facility: [facility] Address: [address] [place] [address] Performed By: #### L [id number] ####[facility] LABCLIA [id number] [place] [address] [place] Alpha 2 globulin Elph [Mass/Vol] 0.92 g/dL Normal 0.42-0.98 [facility] Comment on above: Order Comment: Speci men Type: BLOOD SPECIMENOrdering Facility: [facility] Address: [address] [place] [address] Performed By: #### L [id number] ####[facility] LABCLIA [id number] [address], [place] [address] [place] Beta globulin Elph [Mass/Vol] 0.69 g/dL Normal 0.61-1.17 [facility] Comment on above: Order Comment: Speci men Type: BLOOD SPECIMENOrdering Facility: [facility] Address: [address] [place] [address] Performed By: #### L [id number] ####[facility] LABCLIA [id number] [address], [address] [place] COMMENT (SERUM PROT ELECTRO) Monoclonal Protein analysis (immunofixation) is not indicated. Normal [facility] Comment on above: Order Comment: Speci men Type: BLOOD SPECIMENOrdering Facility: [facility] Address: [address] [place] [address] Performed By: #### L [id number] ####[facility] LABCLIA [id number] [address], [facility]95 [place] Gamma globulin Elph [Mass/Vol] 0.48 g/dL Low 0.53-1.51 [facility] Comment on above: Order Comment: Speci men Type: BLOOD SPECIMENOrdering Facility: [facility] Address: [address] [place] [address] Performed By: #### L [id number] ####[facility] LABCLIA [id number] [address] [place] [address] [place] M-PROTEIN LOCATION Normal [facility] Comment on above: Order Comment: Speci men Type: BLOOD SPECIMENOrdering Facility: [facility] Address: [address] [place] [address] Result Comment: Not Applicable. Performed By: #### L [id number] ####[facility] LABCLIA [id number] [address] [place] [address] [place] Protein Fractions [Interp] No definitive M protein is identified on protein electrophoresis. Normal No definitive M protein is identified on protein electrophore sis. [facility] Comment on above: Order Comment: Luz vaughan Type: BLOOD SPECIMENOrdering Facility: [facility] Address: [address] [place] [address] Performed By: #### L [id number] ####[facility] LABCLIA [id number] [address] Protein.monoclonal Elph [Mass/Vol] 0.00 g/dL Normal <=0.00 [facility] Comment on above: Order Comment: Luz vaughan Type: BLOOD SPECIMENOrdering Facility: [facility] Address: [address] [place] [address] Performed By: #### L [id number] ####[facility] LABIA [id number] [address] SPE STAFF REVIEW Reviewed by Sebas Ocampo MD, Ph.D ([id number]) [facility] Comment on above: Order Comment: Luz clement Type: BLOOD SPECIMENOrdering Facility: [facility] Address: [address] [place] [address] Performed By: #### L [id number] ####[facility] LABIA [id number] [address] [place] PT panel Coag (PPP)on 2024 INR Coag (PPP) [Relative time] 0.9 {INR} Normal 0.9-1.3 [facility] Comment on above: Order Comment: Luz clement Type: BLOOD SPECIMENOrdering Facility: [facility] Address: [address] [place] [address] Result Comment: Melissa min K Antagonist (VKA) Therapeutic Range: INR 2 to 3 (Target INR of 2.5)Note: For patients treated with VKA drugs, such as warfarin, the [place] 2012 Guideline recommends a therapeutic INR range of 2 to 3 (target INR of 2.5). This recommendation includes high-risk patients with antiphospholipid syndrome with previous arterial or venous thromboembolism, current-generation mechanical or bioprosthetic aortic heart valve replacement.Note: Patients with mechanical aortic valve replacement and additional risk factors for thromboembolic events (atrial fibrillation, previous thromboembolism, LV dysfunction, hypercoagulable conditions) or an older generation mechanical AVR (i.e., ball in-Cage) or any mechanical MVR should have a INR therapeutic range of 2.5 to 3.5 (target INR of 3).Ewa GH, et al. Chest 2012, 141:7S-47SNishimura RA, et al. [facility] 2017, 70: 252-289 Performed By: #### 3 4528-0 ####[facility] LABORATORYCLIA [id number] [place] [address] [place] PT Coag (PPP) [Time] 10.3 s Normal 9.7-13.0 [facility] Comment on above: Order Comment: Speci men Type: BLOOD SPECIMENOrdering Facility: [facility] Address: [address] [place] [address] Performed By: #### 3 4528-0 ####[facility] LABORATORYCLIA [id number] [place] [address] [place] Potassium ?Tm Ur-sCncon 07-02 Potassium Unsp time (U) [Moles/Vol] 21.5 mmol/L Normal 10.0-160.0 [facility] Comment on above: Order Comment: Speci men Type: URINE SPECIMENOrdering Facility: [facility] Address: [address] [place] [address] Performed By: #### 3 5677-4, 2890-2, UACR, 86169-6, 08193-5 ####[facility] LABCLIA [id number] [place] [address] [place] Prot SerPl-mCncon 07-11-2024 Protein [Mass/Vol] 6.2 g/dL Low 6.3-8.0 [facility] Comment on above: Order Comment: Speci men Type: BLOOD SPECIMENOrdering Facility: [facility] Address: [address] [place] [address] Performed By: #### 4 498-2, 4485-9, 2885-2 ####[facility] LABIA [id number] [place] [id number] [place] Prot/Creat Uron 07-11-2024 Protein/Creatinine (U) [Mass ratio] 7.24 mg/mg High <0.15 [facility] Comment on above: Order Comment: Speci men Type: URINE SPECIMENOrdering Facility: [facility] Address: [address] [place] [address] Result Comment: Adul t Proteinuria Categories:<0.15 mg/mg is considered normal to mildly increased0.15 - 0.50 mg/mg is considered moderately increased>0.50 mg/mg is considered severely increasedKDIGO. (2013). KDIGO 2012 Clinical Practice Guideline for the Evaluation and Management of Chronic Kidney Disease. Official Journal of the International Society of Nephrology, 3(1), 1-150. Performed By: #### 3 5677-4, 2890-2, UACR, 92444-2, 47062-5 ####[facility] HOSPITALIA [id number] [place] [id number] [place] Protein/Creatinine (U) [Mass ratio]on 07-11-2024 Protein (U) [Mass/Vol] 333 mg/dL High 0-20 [facility] Comment on above: Order Comment: Speci men Type: URINE SPECIMENOrdering Facility: [facility] Address: [address] [place] [address] Performed By: #### 3 5677-4, 2890-2, UACR, 60331-0, 11035-5 ####[facility] [id number] [place] [id number] [place] Sodium ?Tm Ur-sCncon 025 Sodium Unsp time (U) [Moles/Vol] 86 mmol/L Normal 14-216 [facility] Comment on above: Order Comment: Speci men Type: URINE SPECIMENOrdering Facility: [facility] Address: [address] [place] [address] Performed By: #### 3 5677-4, 2890-2, CR, 47543-6, 62994-2 ####[facility] LABCLIA [id number] [address] [place] THERAPY NTon 07-11-2024 THERAPY NT Normal [facility] THERAPY NT Normal [facility] THERAPY NT Normal [facility] THSD7A AB, S (REFLEX ONLY)on 07-11-2024 THSD7A AB, S Negative Normal Negative [facility] Comment on above: Order Comment: Speci men Type: BLOOD SPECIMENOrdering Facility: [facility] Address: [address] [place] [address] Result Comment: ---- ADDITIONAL INFORMATION This test was developed and its performance characteristicsdetermined by [facility] in a manner consistent withCLIA requirements. This test has not been cleared orapproved by the U.S. Food and Drug Administration.Test Performed by:[facility] [address] Director: Soy Loomis Ph.D.; CLIA# [id number] Performed By: #### P MNDCS, PLA2RI, THSD7A ####[facility] LABCLIA [id number] [place] [address] Urinalysis complete panel (U )on 07-11-2024 Bilirubin Ql (U) Negative Normal Negative [facility] Comment on above: Order Comment: Speci men Type: URINE SPECIMENOrdering Facility: [facility] Address: [address] [place] [id number] Performed By: #### 2 4356-8 ####[facility] LABORATORYCLIA [id number] [place] [address] [facility] Clarity (Unsp spec) Clear Normal Clear [facility] Comment on above: Order Comment: Speci men Type: URINE SPECIMENOrdering Facility: [facility] Address: [address] [place] [id number] Performed By: #### 2 4356-8 ####[facility] LABORATORYCLIA [id number] [place] [address] [place] Color (U) Yellow Normal Yellow [facility] Comment on above: Order Comment: Speci men Type: URINE SPECIMENOrdering Facility: [facility] Address: [address] [place] [address] Performed By: #### 2 4356-8 ####[facility] LABORATORYCLIA [id number] [place] [address] [place] Epithelial cells LM.HPF (Urine sed) [#/Area] Few Normal [facility] Comment on above: Order Comment: Speci men Type: URINE SPECIMENOrdering Facility: [facility] Address: [address] [place] [address] Performed By: #### 2 4356-8 ####[facility] LABORATORYCLIA [id number] [place] [address] [place] Glucose Test strip (U) [Mass/Vol] 2+ Abnormal Negative [facility] Comment on above: Order Comment: Speci men Type: URINE SPECIMENOrdering Facility: [facility] Address: [address] [place] [address] Performed By: #### 2 4356-8 ####[facility] LABORATORYCLIA [id number] [place] [address] [place] Hemoglobin Ql (U) 1+ Abnormal Negative [facility] Comment on above: Order Comment: Speci men Type: URINE SPECIMENOrdering Facility: [facility] Address: [address] [place] [address] Performed By: #### 2 4356-8 ####[facility] LABORATORYCLIA [id number] [place] [address] [place] Ketones Ql (U) Negative Normal Negative [facility] Comment on above: Order Comment: Speci men Type: URINE SPECIMENOrdering Facility: [facility] Address: [address] [place] [address] Performed By: #### 2 4356-8 ####[facility] LABORATORYCLIA [id number] [address] [place] Leukocyte esterase Test strip Ql (U) Negative Normal Negative [facility] Comment on above: Order Comment: Speci men Type: URINE SPECIMENOrdering Facility: [facility] Address: [address] [place] [address] Performed By: #### 2 4356-8 ####[facility] LABORATORYCLIA [id number] [place] [address] [place] Nitrite Ql (U) Negative Normal Negative [facility] Comment on above: Order Comment: Speci men Type: URINE SPECIMENOrdering Facility: [facility] Address: [address] [place] [address] Performed By: #### 2 4356-8 ####[facility] LABORATORYCLIA [id number] [place] [address] [place] [facility] [place] pH (U) 6.0 [pH] Normal 5.0-8.0 [facility] Comment on above: Order Comment: Speci men Type: URINE SPECIMENOrdering Facility: [facility] Address: [address] [place] [address] Performed By: #### 2 4356-8 ####[facility] LABORATORYCLIA [id number] [address] [place] Protein (U) [Mass/Vol] 3+ Abnormal Negative [facility] Comment on above: Order Comment: Speci men Type: URINE SPECIMENOrdering Facility: [facility] Address: [address] [place] [address] Performed By: #### 2 4356-8 ####[facility] LABORATORYCLIA [id number] [place] [address] [place] RBC LM.HPF (Urine sed) [#/Area] 0-3 /HPF Normal 0-3 /HPF [facility] Comment on above: Order Comment: Speci men Type: URINE SPECIMENOrdering Facility: [facility] Address: [address] [place] [address] Performed By: #### 2 4356-8 ####[facility] LABORATORYCLIA [id number] [place] [address] [place] Specific gravity (U) [Rel density] 1.020 Normal 1.005-1.030 [facility] Comment on above: Order Comment: Speci men Type: URINE SPECIMENOrdering Facility: [facility] Address: [address] [place] [address] Performed By: #### 2 4356-8 ####[facility] LABORATORYCLIA [id number] [place] [address] [place] Urobilinogen Ql (U) 0.2 EU/dL Normal 0.2-1.0 EU/dL [facility] Comment on above: Order Comment: Speci men Type: URINE SPECIMENOrdering Facility: [facility] Address: [address] [place] [address] Performed By: #### 2 4356-8 ####[facility] LABORATORYCLIA [id number] [place] [address] [place] WBC LM.HPF (Urine sed) [#/Area] 0-5 /HPF Normal 0-5 /HPF [facility] Comment on above: Order Comment: Speci men Type: URINE SPECIMENOrdering Facility: [facility] Address: [address] [place] [address] Performed By: #### 2 4356-8 ####[facility] LABORATORYCLIA [id number] [place] [address] [place] ALLIED HEALTHon 07-10-2024 ALLIED HEALTH Normal [facility] ALLIED [facility] Normal [facility] Basic metabolic 2000 panelon 07-10-2024 Anion gap [Moles/Vol] 13 mmol/L Normal 8-15 [facility] Comment on above: Order Comment: Speci men Type: BLOOD SPECIMENOrdering Facility: [facility] Address: [address] [place] [address] Performed By: #### 2 4321-2 ####[facility] LABORATORYCLIA [id number] [place] [address] [place] Calcium [Mass/Vol] 8.6 mg/dL Normal 8.5-10.2 [facility] Comment on above: Order Comment: Speci men Type: BLOOD SPECIMENOrdering Facility: [facility] Address: [address] [place] [address] Performed By: #### 2 4321-2 ####[facility] LABORATORYCLIA [id number] [place] [address] [place] Chloride [Moles/Vol] 107 mmol/L Normal 98-107 [facility] Comment on above: Order Comment: Luz vaughan Type: BLOOD SPECIMENOrdering Facility: [facility] Address: [address] [place] [address] Performed By: #### 2 4321-2 ####[facility] LABORATORYCLIA [id number] [place] [id number] [place] CO2 [Moles/Vol] 22 mmol/L Normal 22-30 [facility] Comment on above: Order Comment: Luz vaughan Type: BLOOD SPECIMENOrdering Facility: [facility] Address: [address] [place] [address] Performed By: #### 2 4321-2 ####[facility]ATORYCLIA [id number] [address] [place] [facility] Creatinine [Mass/Vol] 6.19 mg/dL High 0.73-1.22 [facility] Comment on above: Order Comment: Luz vaughan Type: BLOOD SPECIMENOrdering Facility: [facility] Address: [address] [place] [address] Performed By: #### 2 4321-2 ####[facility] LABORATORYCLIA [id number] [address] Creatinine and Glomerular filtration rate.predicted panel (S/P/Bld) 9 mL/min/1.73m??? Low >=60 [facility] Comment on above: Order Comment: Luz clement Type: BLOOD SPECIMENOrdering Facility: [facility] Address: [address] [place] [address] Result Comment: Breanne mated Glomerular Filtration Rate (eGFR) is calculated using the 2020 CKD-EPI creatinine equation. This equation utilizes serum creatinine, sex, and age as parameters. The creatinine assay has traceable calibration to isotope dilution-mass spectrometry. Refer to KDIGO guidelines for clinical interpretation. In patients with unstable renal function, e.g. those with acute kidney injury, the eGFR may not accurately reflect actual GFR. Performed By: #### 2 4321-2 ####[facility] LABORATORYCLIA [id number] [place] [id number] [place] Glucose [Mass/Vol] 130 mg/dL High 74-99 [facility] Comment on above: Order Comment: Luz vaughan Type: BLOOD SPECIMENOrdering Facility: [facility] Address: [address] [place], [place] [address] Result Comment: The [place] Diabetes [employer] (ADA) provides guidance for cutoff values for fasting glucose and random glucose. The ADA defines fasting as no caloric intake for at least 8 hours. Fasting plasma glucose results between 100 to 125 mg/dL indicate increased risk for diabetes (prediabetes).Fasting plasma glucose results greater than or equal to 126 mg/dL meet the criteria for diagnosis of diabetes. In the absence of unequivocal hyperglycemia, results should be confirmed by repeat testing. In a patient with classic symptoms of hyperglycemia or hyperglycemic crisis, random plasma glucose results greater than or equal to 200 mg/dL meet the criteria for diagnosis of diabetes.Reference: Standards of Medical Care in Diabetes 2016, [place] [employer]. Diabetes Care. 2016.39(Suppl 1). Performed By: #### 2 4321-2 ####[facility] LABORATORYCLIA [id number] [place] [address] [place] Potassium [Moles/Vol] 4.7 mmol/L Normal 3.7-5.1 [facility] Comment on above: Order Comment: Luz vaughan Type: BLOOD SPECIMENOrdering Facility: [facility] Address: [address] [place] [address] Performed By: #### 2 4321-2 ####ADKINS LABORATORYCLIA [id number] [place] [address] [place] Sodium [Moles/Vol] 142 mmol/L Normal 136-144 [facility] Comment on above: Order Comment: Luz vaughan Type: BLOOD SPECIMENOrdering Facility: [facility] Address: [address] [place], [place] [address] Performed By: #### 2 4321-2 ####ADKINS LABORATORYCLIA [id number] [place] [address] [place] Urea nitrogen [Mass/Vol] 78 mg/dL High 9-24 [facility] Comment on above: Order Comment: Luz vaughan Type: BLOOD SPECIMENOrdering Facility: [facility] Address: [address] [place], [place] [address] Performed By: #### 2 4321-2 ####ADKINS LABORATORYCLIA [id number] [place] [address] [place] CBC W Auto Differential pane l (Bld)on 07-10-2024 Basophils (Bld) [#/Vol] 10*3/uL Normal <0.11 [facility] Comment on above: Order Comment: Speci men Type: BLOOD SPECIMENOrdering Facility: [facility] Address: [address] [place] [address] Performed By: #### 5 7021-8 ####ADKINS LABORATORYCLIA [id number] [place] [address] [place] Basophils/100 WBC (Bld) 0.2 % Normal [facility] Comment on above: Order Comment: Speci men Type: BLOOD SPECIMENOrdering Facility: [facility] Address: [address] [place] [address] Performed By: #### 5 7021-8 ####ADKINS LABORATORYCLIA [id number] [place] [address] [place] Differential cell count method Nom (Bld) Auto Normal [facility] Comment on above: Order Comment: Speci men Type: BLOOD SPECIMENOrdering Facility: [facility] Address: [address] [place] [address] Performed By: #### 5 7021-8 ####ADK[facility] LABORATORYCLIA [id number] [place] [address] [place] Eosinophils (Bld) [#/Vol] 0.24 10*3/uL Normal <0.46 [facility] Comment on above: Order Comment: Speci men Type: BLOOD SPECIMENOrdering Facility: [facility] Address: [address] [place] [address] Performed By: #### 5 7021-8 ####AD[facility] LABORATORYCLIA [id number] [address] Eosinophils/100 WBC (Bld) 4.5 % Normal [facility] Comment on above: Order Comment: Speci men Type: BLOOD SPECIMENOrdering Facility: [facility] Address: [address] [place] [address] Performed By: #### 5 7021-8 ####ADK[facility] LABORATORYCLIA [id number] [address] [place] Erythrocyte distribution width (RBC) [Ratio] 13.4 % Normal 11.5-15.0 [facility] Comment on above: Order Comment: Speci men Type: BLOOD SPECIMENOrdering Facility: [facility] Address: [address] [place] [address] Performed By: #### 5 7021-8 ####ADKINS LABORATORYCLIA [id number] [address] [place] Hematocrit (Bld) [Volume fraction] 35.6 % Low 39.0-51.0 [facility] Comment on above: Order Comment: Speci men Type: BLOOD SPECIMENOrdering Facility: [facility] Address: [address] [place] [address] Performed By: #### 5 7021-8 ####ADKINS LABORATORYCLIA [id number] [address] [place] Hemoglobin (Bld) [Mass/Vol] 11.7 g/dL Low 13.0-17.0 [facility] Comment on above: Order Comment: Speci men Type: BLOOD SPECIMENOrdering Facility: [facility] Address: [address] [place] [address] Performed By: #### 5 7021-8 ####ADKINS LABORATORYCLIA [id number] [address] [place] Immature granulocytes (Bld) [#/Vol] 0.03 10*3/uL Normal <0.10 [facility] Comment on above: Order Comment: Speci men Type: BLOOD SPECIMENOrdering Facility: [facility] Address: [address] [place] [address] Performed By: #### 5 7021-8 ####ADK[facility] LABORATORYCLIA [id number] [address] [place] Immature granulocytes/100 WBC (Bld) 0.6 % Normal [facility] Comment on above: Order Comment: Speci men Type: BLOOD SPECIMENOrdering Facility: [facility] Address: [address] [place] [address] Performed By: #### 5 7021-8 ####ADK[facility] LABORATORYCLIA [id number] [place] [address] [place] Lymphocytes (Bld) [#/Vol] 1.22 10*3/uL Normal 1.00-4.00 [facility] Comment on above: Order Comment: Speci men Type: BLOOD SPECIMENOrdering Facility: [facility] Address: [address] [place] [address] Performed By: #### 5 7021-8 ####ADK[facility] LABORATORYCLIA [id number] [address] Lymphocytes/100 WBC (Bld) 22.9 % Normal [facility] Comment on above: Order Comment: Speci men Type: BLOOD SPECIMENOrdering Facility: [facility] Address: [address] [place] [address] Performed By: #### 5 7021-8 ####[facility] LABORATORYCLIA [id number] [address] MCH (RBC) [Entitic mass] 28.9 pg Normal 26.0-34.0 [facility] Comment on above: Order Comment: Speci men Type: BLOOD SPECIMENOrdering Facility: [facility] Address: [address] [place] [address] Performed By: #### 5 7021-8 ####[facility] LABORATORYCLIA [id number] [address] MCHC (RBC) [Mass/Vol] 32.9 g/dL Normal 30.5-36.0 [facility] Comment on above: Order Comment: Speci men Type: BLOOD SPECIMENOrdering Facility: [facility] Address: [address] [place] [address] Performed By: #### 5 7021-8 ####ADK[facility] LABORATORYCLIA [id number] [address] MCV (RBC) [Entitic vol] 87.9 fL Normal 80.0-100.0 [facility] Comment on above: Order Comment: Speci men Type: BLOOD SPECIMENOrdering Facility: [facility] Address: [address] [place] [address] Performed By: #### 5 7021-8 ####AD[facility] LABORATORYCLIA [id number] [place] [address] [place] Monocytes (Bld) [#/Vol] 0.54 10*3/uL Normal <0.87 [facility] Comment on above: Order Comment: Speci men Type: BLOOD SPECIMENOrdering Facility: [facility] Address: [address] [place] [address] Performed By: #### 5 7021-8 ####ADK[facility] LABORATORYCLIA [id number] [address] Monocytes/100 WBC (Bld) 10.1 % Normal [facility] Comment on above: Order Comment: Speci men Type: BLOOD SPECIMENOrdering Facility: [facility] Address: [address] [place] [address] Performed By: #### 5 7021-8 ####ADK[facility] LABORATORYCLIA [id number] [place] [address] [place] Neutrophils (Bld) [#/Vol] 3.29 10*3/uL Normal 1.45-7.50 [facility] Comment on above: Order Comment: Speci men Type: BLOOD SPECIMENOrdering Facility: [facility] Address: [address] [place] [address] Performed By: #### 5 7021-8 ####ADK[facility] LABORATORYCLIA [id number] [address] [place] Neutrophils/100 WBC (Bld) 61.7 % Normal [facility] Comment on above: Order Comment: Speci men Type: BLOOD SPECIMENOrdering Facility: [facility] Address: [address] [place] [address] Performed By: #### 5 7021-8 ####ADK[facility] LABORATORYCLIA [id number] [place] [address] [place] Nucleated RBC (Bld) [#/Vol] 10*3/uL Normal <0.01 [facility] Comment on above: Order Comment: Speci men Type: BLOOD SPECIMENOrdering Facility: [facility] Address: [address] [place] [address] Performed By: #### 5 7021-8 ####ADK[facility] LABORATORYCLIA [id number] [address] [place] Nucleated RBC/100 WBC (Bld) [Ratio] 0.0 /100 WBC Normal [facility] Comment on above: Order Comment: Speci men Type: BLOOD SPECIMENOrdering Facility: [facility] Address: [address] [place] [address] Performed By: #### 5 7021-8 ####ADK[facility] LABORATORYCLIA [id number] [place] [address] [place] Platelet mean volume (Bld) [Entitic vol] 8.7 fL Low 9.0-12.7 [facility] Comment on above: Order Comment: Speci men Type: BLOOD SPECIMENOrdering Facility: [facility] Address: [address] [place] [address] Performed By: #### 5 7021-8 ####ADK[facility] LABORATORYCLIA [id number] [place] [address] [place] Platelets (Bld) [#/Vol] 277 10*3/uL Normal 150-400 [facility] Comment on above: Order Comment: Speci men Type: BLOOD SPECIMENOrdering Facility: [facility] Address: [address] [place] [address] Performed By: #### 5 7021-8 ####ADK[facility] LABORATORYCLIA [id number] [place] [address] [place] RBC (Bld) [#/Vol] 4.05 10*6/uL Low 4.20-6.00 [facility] Comment on above: Order Comment: Speci men Type: BLOOD SPECIMENOrdering Facility: [facility] Address: [address] [place] [address] Performed By: #### 5 7021-8 ####AD[facility] LABORATORYCLIA [id number] [address] [place] WBC (Bld) [#/Vol] 5.33 10*3/uL Normal 3.70-11.00 [facility] Comment on above: Order Comment: Speci men Type: BLOOD SPECIMENOrdering Facility: [facility] Address: [address] [place] [address] Performed By: #### 5 7021-8 ####ADK[facility] LABORATORYCLIA [id number] [address] OF [facility] Comprehensive metabolic 2000 panelon 07-10-2024 Albumin [Mass/Vol] 3.5 g/dL Low 3.9-4.9 [facility] Comment on above: Order Comment: Speci men Type: BLOOD SPECIMENOrdering Facility: [facility] Address: [address] [place], [place] [address], [place] [address] Performed By: #### 2 4323-8, ####ADK[facility] LABORATORYCLIA [id number] [address] [place] ALP [Catalytic activity/Vol] 80 U/L Normal 38-113 [facility] Comment on above: Order Comment: Speci men Type: BLOOD SPECIMENOrdering Facility: [facility] Address: [address] [place] [address] Performed By: #### 2 4323-8, ####ADK[facility] LABORATORYCLIA [id number] [address] STATES OF [facility] ALT [Catalytic activity/Vol] 10 U/L Normal 10-54 [facility] Comment on above: Order Comment: Speci men Type: BLOOD SPECIMENOrdering Facility: [facility] Address: [address] [place] [address] Performed By: #### 2 4323-8, ####ADK[facility] LABORATORYCLIA [id number] [address] Anion gap [Moles/Vol] 14 mmol/L Normal 8-15 [facility] Comment on above: Order Comment: Speci men Type: BLOOD SPECIMENOrdering Facility: [facility] Address: [address] [facility] [place] [address] Performed By: #### 2 4323-8, ####ADK[facility] LABORATORYCLIA [id number] [place] [address] [place] AST [Catalytic activity/Vol] 11 U/L Low 14-40 [facility] Comment on above: Order Comment: Speci men Type: BLOOD SPECIMENOrdering Facility: [facility] Address: [address] [place] [address] Performed By: #### 2 4323-8, ####ADK[facility] LABORATORYCLIA [id number] [place] [address] [place] Bilirubin [Mass/Vol] 0.2 mg/dL Normal 0.2-1.3 [facility] Comment on above: Order Comment: Speci men Type: BLOOD SPECIMENOrdering Facility: [facility] Address: [address] [place] [address] Performed By: #### 2 432-8, ####ADK[facility] LABORATORYCLIA [id number] [place] [address] [place] Calcium [Mass/Vol] 9.2 mg/dL Normal 8.5-10.2 [facility] Comment on above: Order Comment: Speci men Type: BLOOD SPECIMENOrdering Facility: [facility] Address: [address] [place] [address] Performed By: #### 2 432-8, ####ADK[facility] LABORATORYCLIA [id number] [place] [address] [place] Chloride [Moles/Vol] 104 mmol/L Normal 98-107 [facility] Comment on above: Order Comment: Speci men Type: BLOOD SPECIMENOrdering Facility: [facility] Address: [address] [place] [address] Performed By: #### 2 4323-8, ####ADK[facility] LABORATORYCLIA [id number] [place] [address] [place] CO2 [Moles/Vol] 23 mmol/L Normal 22-30 [facility] Comment on above: Order Comment: Speci men Type: BLOOD SPECIMENOrdering Facility: [facility] Address: [address] [place] [address] Performed By: #### 2 4328, ####ADKINS LABORATORYCLIA [id number] [place] [address] [place] Creatinine [Mass/Vol] 6.77 mg/dL High 0.73-1.22 [facility] Comment on above: Order Comment: Luz vaughan Type: BLOOD SPECIMENOrdering Facility: [facility] Address: [address] [place] [address] Performed By: #### 2 4323-8, ####ADKINS LABORATORYCLIA [id number] [place] [id number] [place] Creatinine and Glomerular filtration rate.predicted panel (S/P/Bld) 8 mL/min/1.73m??? Low >=60 [facility] Comment on above: Order Comment: Luz vaughan Type: BLOOD SPECIMENOrdering Facility: [facility] Address: [address] [place] [address] Result Comment: Breanne mated Glomerular Filtration Rate (eGFR) is calculated using the 2020 CKD-EPI creatinine equation. This equation utilizes serum creatinine, sex, and age as parameters. The creatinine assay has traceable calibration to isotope dilution-mass spectrometry. Refer to KDIGO guidelines for clinical interpretation. In patients with unstable renal function, e.g. those with acute kidney injury, the eGFR may not accurately reflect actual GFR. Performed By: #### 2 4323-8, ####ADKINS LABORATORYCLIA [id number] [place] [id number] [place] Glucose [Mass/Vol] 141 mg/dL High 74-99 [facility] Comment on above: Order Comment: Luz vaughan Type: BLOOD SPECIMENOrdering Facility: [facility] Address: [address] [place] [address] Result Comment: The [place] Diabetes Association (ADA) provides guidance for cutoff values for fasting glucose and random glucose. The ADA defines fasting as no caloric intake for at least 8 hours. Fasting plasma glucose results between 100 to 125 mg/dL indicate increased risk for diabetes (prediabetes).Fasting plasma glucose results greater than or equal to 126 mg/dL meet the criteria for diagnosis of diabetes. In the absence of unequivocal hyperglycemia, results should be confirmed by repeat testing. In a patient with classic symptoms of hyperglycemia or hyperglycemic crisis, random plasma glucose results greater than or equal to 200 mg/dL meet the criteria for diagnosis of diabetes.Reference: Standards of Medical Care in Diabetes 2016, [place] [employer]. Diabetes Care. 2016.39(Suppl 1). Performed By: #### 2 4322-11, ####ADKINS LABORATORYCLIA [id number] [address] [place] Potassium [Moles/Vol] 5.9 mmol/L High 3.7-5.1 [facility] Comment on above: Order Comment: Brooksi men Type: BLOOD SPECIMENOrdering Facility: [facility] Address: [address] [place] [address] Performed By: #### 2 4322-11, ####ADK[facility] LABORATORYCLIA [id number] [address] [place] [facility] Protein [Mass/Vol] 6.5 g/dL Normal 6.3-8.0 [facility] Comment on above: Order Comment: Luz vaughan Type: BLOOD SPECIMENOrdering Facility: [facility] Address: [address] [place] [address] Performed By: #### 2 4322-11, ####ADK[facility] LABORATORYCLIA [id number] [address] [place] [facility] Sodium [Moles/Vol] 141 mmol/L Normal 136-144 [facility] Comment on above: Order Comment: Luz vaughan Type: BLOOD SPECIMENOrdering Facility: [facility] Address: [address] [place] [address] Performed By: #### 2 4322-11, ####ADKINS LABORATORYCLIA [id number] [place] [address] [place] Urea nitrogen [Mass/Vol] 82 mg/dL High 9-24 [facility] Comment on above: Order Comment: Luz vaughan Type: BLOOD SPECIMENOrdering Facility: [facility] Address: [address] [place] [id number] Performed By: #### 2 4322-11, ####ADKINS LABORATORYCLIA [id number] [place] [id number] [place] ED NOTEon 07-10-2024 ED NOTE HNO ID: [id number] Author: ART PAYNE, LEATHA Service: ? Author Type: Registered Nurse Type: ED Notes Filed: 07/10/2024 20:41 Note Text: Heads up given to 3 south rn charge [facility] ED NOTE HNO ID: [id number] Author: SANDRA WHITEHEAD, LEATHA Service: Nursing Author Type: Registered Nurse Type: ED Notes Filed: 07/10/2024 16:25 Note Text: Patient speaking to virtual triage doctor [facility] ED PROV NOTEon 07-10-2024 ED PROV NOTE Normal [facility] ED Triage Noteon 07-10-2024 ED Triage Note [facility] Magnesium SerPl-mCncon 07-10 Magnesium [Mass/Vol] 2.3 mg/dL Normal 1.7-2.3 [facility] Comment on above: Order Comment: Speci men Type: BLOOD SPECIMENOrdering Facility: [facility] Address: [address] [place] [address] Performed By: #### 2 4323-8, 74688-0 ####[facility] LABORATORYCLIA [id number] [place] [address] [facility] NURSING PROGon 07-10-2024 NURSING PROG [facility] US KIDNEY/BLADDERon 07-11-19 KIDNEY/BLADDER [facility] XR CHEST 2V FRONTAL/LATon XR CHEST 2V FRONTAL/LAT [facility] 36on 06-28-2024 36 S: Patient spoke wit h [facility] nurse regarding abnormal labs results being called by the [facility]. Hx: DM B: Onset of symptoms/concern labs were drawn from the [facility] office at his appointment on 06/27/24 having an urgent notification at 15:54 was seen in the office for a 2-month follow up A: Bun 79.9 CR 4.3 Potassium 7.1 R: Paging Dr. Scott at 3:55 No further needs at this time. Reason for Disposition Lab or radiology calling with test results Protocols used: [id number] ANES POSTPROC EVALon 025 ANES POSTPROC EVAL [facility] ANES PRE-OPon 05-13-2024 ANES PRE-OP Normal [facility] Colonoscopy Study observatio non 05-13-2024 [facility] Gastrointestinal Endoscopy Patient Name: José Manuel Ashton Procedure Date: 05/13/2024 10:48 AM Date of : 1960 Admit Type: Outpatient Room: [place] [address] Gender: Male Note Status: Finalized Attending MD: Artem Ahmadi MD, [id number] Procedure: Colonoscopy Indications: High risk colon cancer surveillance: Personal history of colon cancer Providers: Artem Ahmadi MD Patient Profile: Last Colonoscopy: 3 years ago. Refer to note in patient chart for documentation of history and physical. Referring Physician: Artem Ahmadi MD (Referring MD) Medicines: Monitored Anesthesia Care Complications: No immediate complications. Procedure: Pre-Anesthesia Assessment: - Prior to the procedure, a History and Physical was performed, and patient medications and allergies were reviewed. The patient's tolerance of previous anesthesia was also reviewed. The risks and benefits of the procedure and the sedation options and risks were discussed with the patient. All questions were answered, and informed consent was obtained. Prior Anticoagulants: The patient has taken no anticoagulant or antiplatelet agents. ASA Grade Assessment: See anesthesia record. After reviewing the risks and benefits, the patient was deemed in satisfactory condition to undergo the procedure. After I obtained informed consent, the scope was passed under direct vision. Throughout the procedure, the patient's blood pressure, pulse, and oxygen saturations were monitored continuously. The Colonoscope was introduced through the anus and advanced to the cecum, identified by appendiceal orifice and ileocecal valve. I was present and participated during the entire procedure, including non-jiang portions, and during the administration and monitoring of Moderate Sedation. The patient tolerated the procedure well. The quality of the bowel preparation was excellent. The ileocecal valve, appendiceal orifice, and rectum were photographed. The colonoscopy was performed without difficulty. Scope Withdrawal Time: 0 hours 11 minutes 36 seconds Moderate Sedation: Exam was performed under monitored anesthesia care (MAC) Findings: The perianal and digital rectal examinations were normal. Flat palpable scar posteriorly at 10 cm without nodularity A 5 mm polyp was found in the mid rectum cecum. The polyp was sessile. The polyp was removed with a cold biopsy forceps. The polyp was removed with a cold snare. Resection and retrieval were complete. Two sessile polyps were found in the cecum. The polyps were 5 to 6 mm in size. These polyps were removed with a cold biopsy forceps. Resection and retrieval were complete. The exam was otherwise without abnormality on direct and retroflexion views. A 6 mm polyp was found in the hepatic flexure. The polyp was sessile. The polyp was removed with a cold snare. Resection and retrieval were complete. Verification of patient identification for the specimen was done. Estimated blood loss was minimal. Three sessile polyps were found in the transverse colon. The polyps were 6 to 8 mm in size. These polyps were removed with a cold snare. Resection and retrieval were complete. Verification of patient identification for the specimen was done. Estimated blood loss was minimal. Estimated Blood Loss: Estimated blood loss: none. Impression: - The examination was otherwise normal on direct and retroflexion views. - No specimens collected. Recommendation: - Patient has a contact number available for emergencies. The signs and symptoms of potential delayed complications were discussed with the patient. Return to normal activities tomorrow. Written discharge instructions were provided to (more content not included)... [employer] [facility] Radiology Study observation (narrative) [facility] HISTORY PHYSICALon HISTORY PHYSICAL Normal [facility] Pathology biopsy report Kade (Tiss)on 05-13-2024 CASE REPORT Normal [facility] Comment on above: Order Comment: Speci men Type: TISSUE SPECIMENOrdering Facility: [facility] Address: [address] [place] [address] Result Comment: Surg ica Pathology Report Case: [id number] Provider: Artem Ahmadi MD Collected: 05/13/2024 11:27 AMOrdering Location: [facility] Received: 05/14/2024 08:40 AMPathologist: Machelle Ignacio MDSpecimens: A) - Colon, Transverse, Polyp, x 3 B) - Colon, Cecum, Polyp, x 2 C) - Colon, Hepatic Flexure, Polyp D) - Rectum, Polyp Performed By: #### 6 6121-5 ####[facility] LABORATORYCLIA [id number] [address] DIAGNOSIS COMMENT In parts "B" and "C" multiple additional deeper levels have been examined. Normal [facility] Comment on above: Order Comment: Speci men Type: TISSUE SPECIMENOrdering Facility: [facility] Address: [address] [place] [address] Performed By: #### 6 6121-5 ####[facility] LABORATORYCLIA [id number] [address] FINAL DIAGNOSIS Normal [facility] Comment on above: Order Comment: Speci men Type: TISSUE SPECIMENOrdering Facility: [facility] Address: [address] [place] [address] Result Comment: A. T ransverse colon polyp (x3), polypectomy:-- Fragments of tubular adenoma.B. Cecum colon polyp (x2), polypectomy:-- Tubular adenoma, see comment.C. Hepatic flexure polyp, polypectomy:-- Polypoid fragment of colonic mucosa with no significant histopathologic abnormalities, see comment.D. Rectum polyp, polypectomy:-- Tubular adenoma. at 1506 EST Performed By: #### 6 6121-5 ####[facility] LABORATORYCLIA [id number] [address] FINAL PERFORMING LAB Normal [facility] Comment on above: Order Comment: Speci men Type: TISSUE SPECIMENOrdering Facility: [facility] Address: [address] [place] [address] Result Comment: Diag nostic interpretation performed at: [facility], [address] [address] CLIA# [id number] Director: Kahlil Lewis MD Performed By: #### 6 6121-5 ####[facility] LABORATORYCLIA [id number] [address] GROSS DESCRIPTION [facility] Comment on above: Order Comment: Speci men Type: TISSUE SPECIMENOrdering Facility: [facility] Address: [address] [place] [address] Result Comment: A. C olon, Transverse, PolypReceived in formalin labeled "transverse colon polyp" are multiple irregular flores soft tissue fragments aggregating to 0.8 x 0.4 x 0.2 cm. The specimen is submitted entirely in A1.B. Colon, Cecum, PolypReceived in formalin labeled "cecum colon polyp" is an irregular flores soft tissue fragment measuring 0.6 x 0.3 x 0.3 cm. The specimen is submitted entirely in B1.C. Colon, Hepatic Flexure, PolypReceived in formalin labeled "hepatic flexure polyp" is an irregular flores soft tissue fragment measuring 0.3 x 0.3 x 0.2 cm. The specimen is submitted entirely in C1.D. Rectum, PolypReceived in formalin labeled "rectal polyp" is an irregular flores soft tissue fragment measuring 0.2 x 0.2 x 0.2 cm. The specimen is submitted entirely in D1.Gross examination performed at [facility], [address] [place] [address] CLIA#[id number] May 14, 2024 2:55 PM Performed By: #### 6 6121-5 ####[facility] LABORATORYCLIA [id number] [place] [address] [place] VENOUS BLOOD GAS, POC (AK,MH ,MR)on 05-13-2024 Base Excess (POCT) -5 mmol/L Abnormal -2 - 3 mmol/L [facility] CO2 [Moles/Vol] 23 mmol/L Abnormal 24 - 29 mmol/L [facility] Glucose [Mass/Vol] 128 mg/dL Abnormal 70 - 105 mg/dL [facility] HCO3 (Bld) [Moles/Vol] 22.1 mmol/L Abnormal 23.0 - 28.0 mmol/L [facility] Hematocrit (Bld) [Volume fraction] 34 % Abnormal [facility] Hemoglobin (Bld) [Mass/Vol] 11.6 g/dL Abnormal 12.0 - 17.0 g/dL [facility] Interpretation and review of laboratory results Abnormal [facility] Ionized Ca (POCT) 1.28 mmol/L 1.12 - 1.3 2 mmol/L [facility] pCO2,Venous(POCT) 46.4 [facility] pH,Venous(POCT) 7.286 Abnormal [facility] pO2,Venous(POCT) [facility] Potassium [Moles/Vol] 4.4 mmol/L 3.5 - 4.9 mmol/L [facility] Pt Note NEW UNIT CHANGE iCa: md/dL to mmol/L starting 09/30 [facility] sO2 (POCT) <> 60 - 85 % [facility] Sodium [Moles/Vol] 144 mmol/L 138 - 146 mmol/L [facility] Meter ID:[id number] Location:[facility], [address] [place] [address], [address] [place] [address] POINT OF CARE [facility] 36on 04-27-2024 36 S: Patient's sister (Janell) spoke with CAC nurse regarding medication problem / prior authorization B: Medication sent to pharmacy yesterday A: Sister calling to report Sodium Zirconium Cyclosilicate needs prior authorization. Dr. Scott called yesterday for him to start the medication based on his lab work. R: Per chart review, potassium levels critical high from yesterdays lab work. Secure chat message sent to Dr. Scott to see if a different medication could be used that doesn't require PA. Per Dr. Scott - "I'll call the pharmacy" Return call back to Janell with an update. Recommend calling the pharmacy in 1 hour to see if medication is ready. Any issues, please give the office a call back. Sister verbalizes understanding. Reason for Disposition [1] Caller has URGENT medicine question about med that PCP or specialist prescribed AND [2] triager unable to answer question Protocols used: Medication Question Ptuh-[id number] Normal [facility] Basic metabolic 2000 panelon 04-26-2024 Anion gap [Moles/Vol] 11 mmol/L Normal 8-15 [facility] Comment on above: Order Comment: Luz vaughan Type: BLOOD SPECIMENOrdering Facility: External Submitter Address: , , Performed By: #### 1 311-5, 46920-3 ####[facility]OR[facility]ORYCLIA [id number] [place] [address] [place] Calcium [Mass/Vol] 9.4 mg/dL Normal 8.5-10.2 [facility] Comment on above: Order Comment: Luz vaughan Type: BLOOD SPECIMENOrdering Facility: External Submitter Address: , , Performed By: #### 1 519-5, ####[facility]ORATORYCLIA [id number] [address] [place] Chloride [Moles/Vol] 108 mmol/L High 98-107 [facility] Comment on above: Order Comment: Specjonas vaughan Type: BLOOD SPECIMENOrdering Facility: External Submitter Address: , , Performed By: #### 1 988-5, ####[facility]ORATORYCLIA [id number] [place] [address] [place] CO2 [Moles/Vol] 22 mmol/L Normal 22-30 [facility] Comment on above: Order Comment: Luz vaughan Type: BLOOD SPECIMENOrdering Facility: External Submitter Address: , , Performed By: #### 1 988-5, ####[facility]ATORYCLIA [id number] [address] Creatinine [Mass/Vol] 3.41 mg/dL High 0.73-1.22 [facility] Comment on above: Order Comment: [facility] Type: BLOOD SPECIMENOrdering Facility: External Submitter Address: , , Performed By: #### 1 988-5, ####[facility]ORATORYCLIA [id number] [address] Creatinine and Glomerular filtration rate.predicted panel (S/P/Bld) 19 mL/min/1.73m??? Low >=60 [facility] Comment on above: Order Comment: [facility] Type: BLOOD SPECIMENOrdering Facility: External Submitter Address: , , Result Comment: Breanne mated Glomerular Filtration Rate (eGFR) is calculated using the 2020 CKD-EPI creatinine equation. This equation utilizes serum creatinine, sex, and age as parameters. The creatinine assay has traceable calibration to isotope dilution-mass spectrometry. Refer to KDIGO guidelines for clinical interpretation. In patients with unstable renal function, e.g. those with acute kidney injury, the eGFR may not accurately reflect actual GFR. Performed By: #### 1 988-5, 09529-6 ####[facility]ORATORYCLIA [id number] [place] [address] [place] Glucose [Mass/Vol] 128 mg/dL High 74-99 [facility] Comment on above: Order Comment: Luz vaughan Type: BLOOD SPECIMENOrdering Facility: External Submitter Address: , , Result Comment: The [place] Diabetes Association (ADA) provides guidance for cutoff values for fasting glucose and random glucose. The ADA defines fasting as no caloric intake for at least 8 hours. Fasting plasma glucose results between 100 to 125 mg/dL indicate increased risk for diabetes (prediabetes).Fasting plasma glucose results greater than or equal to 126 mg/dL meet the criteria for diagnosis of diabetes. In the absence of unequivocal hyperglycemia, results should be confirmed by repeat testing. In a patient with classic symptoms of hyperglycemia or hyperglycemic crisis, random plasma glucose results greater than or equal to 200 mg/dL meet the criteria for diagnosis of diabetes.Reference: Standards of Medical Care in Diabetes 2016, [place] [employer]. Diabetes Care. 2016.39(Suppl 1). Performed By: #### 1 988-5, ####[facility]ORATORYCLIA [id number] [address] STATES OF [facility] Potassium [Moles/Vol] 6.2 mmol/L Critically high 3.7-5.1 [facility] Comment on above: Order Comment: Luz vaughan Type: BLOOD SPECIMENOrdering Facility: External Submitter Address: , , Performed By: #### 1 9885, ####[facility]ORATORYCLIA [id number] [address] STATES OF [facility] Sodium [Moles/Vol] 141 mmol/L Normal 136-144 [facility] Comment on above: Order Comment: Luz vaughan Type: BLOOD SPECIMENOrdering Facility: External Submitter Address: , , Performed By: #### 1 988-5, ####[facility]ORATORYCLIA [id number] [place] [address] [place] Urea nitrogen [Mass/Vol] 59 mg/dL High 9-24 [facility] Comment on above: Order Comment: Luz vaughan Type: BLOOD SPECIMENOrdering Facility: External Submitter Address: , , Performed By: #### 1 988-5, ####[facility]ORATORYCLIA [id number] [place] [address] [place] CBC W Auto Differential pane l (Bld)on 04-26-2024 Basophils (Bld) [#/Vol] 10*3/uL Normal <0.11 [facility] Comment on above: Order Comment: Speci men Type: BLOOD SPECIMENOrdering Facility: [facility] Address: [address] [place] [address] Performed By: #### 5 7021-8 ####[facility]ORATORYCLIA [id number] [place] [address] [place] Basophils/100 WBC (Bld) 0.3 % Normal [facility] Comment on above: Order Comment: Speci men Type: BLOOD SPECIMENOrdering Facility: [facility] Address: [address] [place] [address] Performed By: #### 5 7021-8 ####[facility]ORATORYCLIA [id number] [place] [address] [place] Differential cell count method Nom (Bld) Auto Normal [facility] Comment on above: Order Comment: Speci men Type: BLOOD SPECIMENOrdering Facility: [facility] Address: [address] [place] [address] Performed By: #### 5 7021-8 ####[facility]ORATORYCLIA [id number] [place] [address] [place] Eosinophils (Bld) [#/Vol] 0.25 10*3/uL Normal <0.46 [facility] Comment on above: Order Comment: Speci men Type: BLOOD SPECIMENOrdering Facility: [facility] Address: [address] [place] [address] Performed By: #### 5 7021-8 ####[facility]ORATORYCLIA [id number] [address] [place] Eosinophils/100 WBC (Bld) 4.3 % Normal [facility] Comment on above: Order Comment: Speci men Type: BLOOD SPECIMENOrdering Facility: [facility] Address: [address] [place] [address] Performed By: #### 5 7021-8 ####[facility]ORATORYCLIA [id number] [address] [place] Erythrocyte distribution width (RBC) [Ratio] 14.0 % Normal 11.5-15.0 [facility] Comment on above: Order Comment: Speci men Type: BLOOD SPECIMENOrdering Facility: [facility] Address: [address] [place] [address] Performed By: #### 5 7021-8 ####[facility]ORATORYCLIA [id number] [place] [address] [place] Hematocrit (Bld) [Volume fraction] 34.2 % Low 39.0-51.0 [facility] Comment on above: Order Comment: Speci men Type: BLOOD SPECIMENOrdering Facility: [facility] Address: [address] [place] [address] Performed By: #### 5 7021-8 ####[facility]ORATORYCLIA [id number] [place] [address] [place] Hemoglobin (Bld) [Mass/Vol] 11.0 g/dL Low 13.0-17.0 [facility] Comment on above: Order Comment: Speci men Type: BLOOD SPECIMENOrdering Facility: [facility] Address: [address] [place] [address] Performed By: #### 5 7021-8 ####[facility]ORATORYCLIA [id number] [address] [place] Immature granulocytes (Bld) [#/Vol] 0.03 10*3/uL Normal <0.10 [facility] Comment on above: Order Comment: Speci men Type: BLOOD SPECIMENOrdering Facility: [facility] Address: [address] [place] [address] Performed By: #### 5 7021-8 ####[facility]ATORYCLIA [id number] [address] [place] Immature granulocytes/100 WBC (Bld) 0.5 % Normal [facility] Comment on above: Order Comment: Speci men Type: BLOOD SPECIMENOrdering Facility: [facility] Address: [address] [place] [address] Performed By: #### 5 7021-8 ####[facility]ORYCLIA [id number] [address] [place] Lymphocytes (Bld) [#/Vol] 1.35 10*3/uL Normal 1.00-4.00 [facility] Comment on above: Order Comment: Speci men Type: BLOOD SPECIMENOrdering Facility: [facility] Address: [address] [place] [address] Performed By: #### 5 7021-8 ####[facility]ORYCLIA [id number] [address] Lymphocytes/100 WBC (Bld) 23.4 % Normal [facility] Comment on above: Order Comment: Speci men Type: BLOOD SPECIMENOrdering Facility: [facility] Address: [address] [place] [address] Performed By: #### 5 7021-8 ####[facility]ATORYCLIA [id number] [address] STATES [facility] MCH (RBC) [Entitic mass] 28.5 pg Normal 26.0-34.0 [facility] Comment on above: Order Comment: Speci men Type: BLOOD SPECIMENOrdering Facility: [facility] Address: [address] [place] [address] Performed By: #### 5 7021-8 ####[facility]ATORYCLIA [id number] [address] [place] MCHC (RBC) [Mass/Vol] 32.2 g/dL Normal 30.5-36.0 [facility] Comment on above: Order Comment: Speci men Type: BLOOD SPECIMENOrdering Facility: [facility] Address: [address] [place] [address] Performed By: #### 5 7021-8 ####[facility]ATORYCLIA [id number] [address] MCV (RBC) [Entitic vol] 88.6 fL Normal 80.0-100.0 [facility] Comment on above: Order Comment: Speci men Type: BLOOD SPECIMENOrdering Facility: [facility] Address: [address] [place] [address] Performed By: #### 5 7021-8 ####[facility]ORATORYCLIA [id number] [place] [address] [place] Monocytes (Bld) [#/Vol] 0.52 10*3/uL Normal <0.87 [facility] Comment on above: Order Comment: Speci men Type: BLOOD SPECIMENOrdering Facility: [facility] Address: [address] [place] [address] Performed By: #### 5 7021-8 ####[facility]ATORYCLIA [id number] [address] [place] Monocytes/100 WBC (Bld) 9.0 % Normal [facility] Comment on above: Order Comment: Speci men Type: BLOOD SPECIMENOrdering Facility: [facility] Address: [address] [place] [address] Performed By: #### 5 7021-8 ####[facility]ATORYCLIA [id number] [place] [address] [place] Neutrophils (Bld) [#/Vol] 3.61 10*3/uL Normal 1.45-7.50 [facility] Comment on above: Order Comment: Speci men Type: BLOOD SPECIMENOrdering Facility: [facility] Address: [address] [place] [address] Performed By: #### 5 7021-8 ####[facility]ORATORYCLIA [id number] [address] [place] Neutrophils/100 WBC (Bld) 62.5 % Normal [facility] Comment on above: Order Comment: Speci men Type: BLOOD SPECIMENOrdering Facility: [facility] Address: [address] [place] [address] Performed By: #### 5 7021-8 ####[facility]ORATORYCLIA [id number] [place] [address] [place] Nucleated RBC (Bld) [#/Vol] 10*3/uL Normal <0.01 [facility] Comment on above: Order Comment: Speci men Type: BLOOD SPECIMENOrdering Facility: [facility] Address: [address] [place] [address] Performed By: #### 5 7021-8 ####[facility]ORATORYCLIA [id number] [place] [address] [place] Nucleated RBC/100 WBC (Bld) [Ratio] 0.0 /100 WBC Normal [facility] Comment on above: Order Comment: Speci men Type: BLOOD SPECIMENOrdering Facility: [facility] Address: [address] [place] [address] Performed By: #### 5 7021-8 ####[facility]ATORYCLIA [id number] [place] [address] [place] Platelet mean volume (Bld) [Entitic vol] 9.5 fL Normal 9.0-12.7 [facility] Comment on above: Order Comment: Speci men Type: BLOOD SPECIMENOrdering Facility: [facility] Address: [address] [place] [address] Performed By: #### 5 7021-8 ####[facility]ORATORYCLIA [id number] [place] [address] [place] Platelets (Bld) [#/Vol] 256 10*3/uL Normal 150-400 [facility] Comment on above: Order Comment: Speci men Type: BLOOD SPECIMENOrdering Facility: [facility] Address: [address] [place] [address] Performed By: #### 5 7021-8 ####[facility]ATORYCLIA [id number] [place] [address] [place] RBC (Bld) [#/Vol] 3.86 10*6/uL Low 4.20-6.00 [facility] Comment on above: Order Comment: Speci men Type: BLOOD SPECIMENOrdering Facility: [facility] Address: [address] [place] [address] Performed By: #### 5 7021-8 ####[facility]ATORYCLIA [id number] [place] [address] [place] WBC (Bld) [#/Vol] 5.78 10*3/uL Normal 3.70-11.00 [facility] Comment on above: Order Comment: Speci men Type: BLOOD SPECIMENOrdering Facility: [facility] Address: [address] [place] [address] Performed By: #### 5 7021-8 ####[facility]ORYCLIA [id number] [address] [place] CRP SerPl-mCncon 04-26-2024 CRP [Mass/Vol] mg/L Normal <0.9 [facility] Comment on above: Order Comment: Speci men Type: BLOOD SPECIMENOrdering Facility: [facility] Address: [address] [place] [address] Performed By: #### 1 988-5, 12809-5 ####[facility]ATORYCLIA [id number] [place] [address] [place] ESR Westergren method (Bld) [Velocity]on 04-26-2024 ESR (Bld) [Velocity] 27 mm/h High 0-15 [facility] Comment on above: Order Comment: Speci men Type: BLOOD SPECIMENOrdering Facility: [facility] Address: [address] [place] [address] Performed By: #### 4 537-7 ####[facility] LABCLIA [id number] [place] [id number] [place] PROTEIN ELECTROPHORESIS SERU M (P)on 04-26-2024 Albumin [Mass/Vol] 3.47 g/dL Normal 3.43-5.41 [facility] Comment on above: Order Comment: Speci men Type: BLOOD SPECIMENOrdering Facility: [facility] Address: [address] [place] [address] Performed By: #### L [id number] ####[facility] LABCLIA [id number] [place] [id number] [place] Alpha 1 globulin Elph [Mass/Vol] 0.31 g/dL Normal 0.18-0.43 [facility] Comment on above: Order Comment: Speci men Type: BLOOD SPECIMENOrdering Facility: [facility] Address: [address] [place] [address], [place] [address] Performed By: #### L [id number] ####[facility] LABCLIA [id number] [address] Alpha 2 globulin Elph [Mass/Vol] 0.79 g/dL Normal 0.42-0.98 [facility] Comment on above: Order Comment: Speci men Type: BLOOD SPECIMENOrdering Facility: [facility] Address: [address] [place] [address], [place] [address] Performed By: #### L [id number] ####[facility] LABCLIA [id number] [address] STATES [facility] Beta globulin Elph [Mass/Vol] 0.74 g/dL Normal 0.61-1.17 [facility] Comment on above: Order Comment: Speci men Type: BLOOD SPECIMENOrdering Facility: [facility] Address: [address] [place] [address] Performed By: #### L [id number] ####[facility] LABCLIA [id number] [address] Gamma globulin Elph [Mass/Vol] 0.59 g/dL Normal 0.53-1.51 [facility] Comment on above: Order Comment: Speci men Type: BLOOD SPECIMENOrdering Facility: [facility] Address: [address] [place] [address], [place] [address] Performed By: #### L [id number] ####[facility] LABCLIA [id number] [address] STATES [place] M-PROTEIN LOCATION Normal [facility] Comment on above: Order Comment: Speci men Type: BLOOD SPECIMENOrdering Facility: [facility] Address: [address] [place] [address], [place] [address] Result Comment: Not Applicable. Performed By: #### L [id number] ####[facility] LABIA [id number] [address] [place] Protein Fractions [Interp] No definitive M protein is identified on protein electrophoresis. Normal No definitive M protein is identified on protein electrophore sis. [facility] Comment on above: Order Comment: Speci men Type: BLOOD SPECIMENOrdering Facility: [facility] Address: [address] [place] [address] Performed By: #### L [id number] ####[facility] LABIA [id number] [address] [place] Protein.monoclonal Elph [Mass/Vol] 0.00 g/dL Normal <=0.00 [facility] Comment on above: Order Comment: Speci men Type: BLOOD SPECIMENOrdering Facility: [facility] Address: [address] [place] [address] Performed By: #### L [id number] ####[facility] LABIA [id number] [address] [place] SPE STAFF REVIEW Reviewed by Sebas Ocampo MD, Ph.D ([id number]) Normal [facility] Comment on above: Order Comment: Speci men Type: BLOOD SPECIMENOrdering Facility: [facility] Address: [address] [place] [address] Performed By: #### L [id number] ####[facility] LABIA [id number] [place] [id number] [place] Prot SerPl-mCncon 04-26-2024 Protein [Mass/Vol] 5.9 g/dL Low 6.3-8.0 [facility] Comment on above: Order Comment: Speci men Type: BLOOD SPECIMENOrdering Facility: [facility] Address: [address] [place] [address] Performed By: #### 2 885-2 ####[facility] LABIA [id number] [address] [place] CNPNon 11-19-2024 CNPN Normal [facility] 25([place])D3 [facility] 25-hydroxyvitamin D3 [Mass/Vol] 17.5 ng/mL Low 31.0-80.0 [facility] Comment on above: Order Comment: Speci men Type: BLOOD SPECIMENOrdering Facility: External Submitter Address: , , Performed By: #### 1 989-3 ####[facility] LABCLIA [id number] [address] ALBUMIN/CREATININE RATIO, UR INEon 01-24-2024 Albumin DL <= 20 mg/L (U) [Mass/Vol] mg/dL Normal [facility] Comment on above: Order Comment: Speci men Type: URINE SPECIMENOrdering Facility: External Submitter Address: , , Performed By: #### U ACR ####[facility] LABIA [id number] [address] STATES OF [facility] Albumin/Creatinine (U) [Mass ratio] >4641 High <30 [facility] Comment on above: Order Comment: Speci men Type: URINE SPECIMENOrdering Facility: External Submitter Address: , , Result Comment: Adul t Male and Female Nephrotic Criteria:<30 mg/g is considered normal to mildly wbgpptlej14-277 mg/g is considered moderately increased>300 mg/g is considered severely increasedKDIGO. (2013). KDIGO 2012 Clinical Practice Guideline for the Evaluation and Management of Chronic Kidney Disease. Official Journal of the International Society of Nephrology, 3(1), 1-150. Performed By: #### U ACR ####[facility] LABCLIA [id number] [address] [address] [place] [facility] Creatinine (U) [Mass/Vol] 94.8 mg/dL Normal 20.0-300.0 [facility] Comment on above: Order Comment: Speci men Type: URINE SPECIMENOrdering Facility: External Submitter Address: , , Performed By: #### U ACR ####[facility] LABCLIA [id number] [place] AV[id number] [place] CBC W Auto Differential pane l (Bld)on 01-24-2024 Basophils (Bld) [#/Vol] 10*3/uL Normal <0.11 [facility] Comment on above: Order Comment: Speci men Type: BLOOD SPECIMENOrdering Facility: External Submitter Address: , , Performed By: #### 5 7021-8 ####[facility]ORY[facility]IA [id number] [address] Basophils/100 WBC (Bld) 0.3 % Normal [facility] Comment on above: Order Comment: Speci men Type: BLOOD SPECIMENOrdering Facility: External Submitter Address: , , Performed By: #### 5 7021-8 ####[facility]ATORYCLIA [id number] [address] Differential cell count method Nom (Bld) Auto Normal [facility] Comment on above: Order Comment: Speci men Type: BLOOD SPECIMENOrdering Facility: External Submitter Address: , , Performed By: #### 5 7021-8 ####[facility]ATORYCLIA [id number] [address] OF [facility] Eosinophils (Bld) [#/Vol] 0.14 10*3/uL Normal <0.46 [facility] Comment on above: Order Comment: Speci men Type: BLOOD SPECIMENOrdering Facility: External Submitter Address: , , Performed By: #### 5 7021-8 ####[facility]ATORYCLIA [id number] [address] Eosinophils/100 WBC (Bld) 2.4 % Normal [facility] Comment on above: Order Comment: Speci men Type: BLOOD SPECIMENOrdering Facility: External Submitter Address: , , Performed By: #### 5 7021-8 ####[facility]ATORYCLIA [id number] [address] Erythrocyte distribution width (RBC) [Ratio] 14.0 % Normal 11.5-15.0 [facility] Comment on above: Order Comment: Speci men Type: BLOOD SPECIMENOrdering Facility: External Submitter Address: , , Performed By: #### 5 7021-8 ####[facility]ATORYCLIA [id number] [address] Hematocrit (Bld) [Volume fraction] 39.2 % Normal 39.0-51.0 [facility] Comment on above: Order Comment: Luz vaughan Type: BLOOD SPECIMENOrdering Facility: External Submitter Address: , , Performed By: #### 5 7021-8 ####[facility]ATORYCLIA [id number] [address] Hemoglobin (Bld) [Mass/Vol] 12.6 g/dL Low 13.0-17.0 [facility] Comment on above: Order Comment: Luz vaughan Type: BLOOD SPECIMENOrdering Facility: External Submitter Address: , , Performed By: #### 5 7021-8 ####[facility]ATORYCLIA [id number] [address] Immature granulocytes (Bld) [#/Vol] 0.03 10*3/uL Normal <0.10 [facility] Comment on above: Order Comment: Luz vaughan Type: BLOOD SPECIMENOrdering Facility: External Submitter Address: , , Performed By: #### 5 7021-8 ####[facility]ATORYCLIA [id number] [address] Immature granulocytes/100 WBC (Bld) 0.5 % Normal [facility] Comment on above: Order Comment: Luz vaughan Type: BLOOD SPECIMENOrdering Facility: External Submitter Address: , , Performed By: #### 5 7021-8 ####[facility]ATORYCLIA [id number] [address] Lymphocytes (Bld) [#/Vol] 1.26 10*3/uL Normal 1.00-4.00 [facility] Comment on above: Order Comment: Luz vaughan Type: BLOOD SPECIMENOrdering Facility: External Submitter Address: , , Performed By: #### 5 7021-8 ####[facility]ATORYCLIA [id number] [address] Lymphocytes/100 WBC (Bld) 21.2 % Normal [facility] Comment on above: Order Comment: Speci men Type: BLOOD SPECIMENOrdering Facility: External Submitter Address: , , Performed By: #### 5 7021-8 ####[facility]ORYCLIA [id number] [address] MCH (RBC) [Entitic mass] 27.1 pg Normal 26.0-34.0 [facility] Comment on above: Order Comment: Speci men Type: BLOOD SPECIMENOrdering Facility: External Submitter Address: , , Performed By: #### 5 7021-8 ####[facility]ATORYCLIA [id number] [address] MCHC (RBC) [Mass/Vol] 32.1 g/dL Normal 30.5-36.0 [facility] Comment on above: Order Comment: Speci men Type: BLOOD SPECIMENOrdering Facility: External Submitter Address: , , Performed By: #### 5 7021-8 ####[facility]ATORYCLIA [id number] [address] MCV (RBC) [Entitic vol] 84.3 fL Normal 80.0-100.0 [facility] Comment on above: Order Comment: Speci men Type: BLOOD SPECIMENOrdering Facility: External Submitter Address: , , Performed By: #### 5 7021-8 ####[facility]ORYCLIA [id number] [address] Monocytes (Bld) [#/Vol] 0.51 10*3/uL Normal <0.87 [facility] Comment on above: Order Comment: Speci men Type: BLOOD SPECIMENOrdering Facility: External Submitter Address: , , Performed By: #### 5 7021-8 ####[facility]ORYCLIA [id number] [address] Monocytes/100 WBC (Bld) 8.6 % Normal [facility] Comment on above: Order Comment: Speci men Type: BLOOD SPECIMENOrdering Facility: External Submitter Address: , , Performed By: #### 5 7021-8 ####[facility]ATORYCLIA [id number] [address] Neutrophils (Bld) [#/Vol] 3.99 10*3/uL Normal 1.45-7.50 [facility] Comment on above: Order Comment: Speci men Type: BLOOD SPECIMENOrdering Facility: External Submitter Address: , , Performed By: #### 5 7021-8 ####[facility]ATORYCLIA [id number] [address] Neutrophils/100 WBC (Bld) 67.0 % Normal [facility] Comment on above: Order Comment: Speci men Type: BLOOD SPECIMENOrdering Facility: External Submitter Address: , , Performed By: #### 5 7021-8 ####[facility]ORYCLIA [id number] [address] Nucleated RBC (Bld) [#/Vol] 10*3/uL Normal <0.01 [facility] Comment on above: Order Comment: Luz vaughan Type: BLOOD SPECIMENOrdering Facility: External Submitter Address: , , Performed By: #### 5 7021-8 ####[facility]ORYCLIA [id number] [address] Nucleated RBC/100 WBC (Bld) [Ratio] 0.0 /100 WBC Normal [facility] Comment on above: Order Comment: Luz vaughan Type: BLOOD SPECIMENOrdering Facility: External Submitter Address: , , Performed By: #### 5 7021-8 ####[facility]ATORYCLIA [id number] [address] Platelet mean volume (Bld) [Entitic vol] 8.8 fL Low 9.0-12.7 [facility] Comment on above: Order Comment: Brook[place] men Type: BLOOD SPECIMENOrdering Facility: External Submitter Address: , , Performed By: #### 5 7021-8 ####[facility]ATORYCLIA [id number] [address] Platelets (Bld) [#/Vol] 289 10*3/uL Normal 150-400 [facility] Comment on above: Order Comment: Speci men Type: BLOOD SPECIMENOrdering Facility: External Submitter Address: , , Performed By: #### 5 7021-8 ####[facility]ATORYCLIA [id number] [address] RBC (Bld) [#/Vol] 4.65 10*6/uL Normal 4.20-6.00 [facility] Comment on above: Order Comment: Speci men Type: BLOOD SPECIMENOrdering Facility: External Submitter Address: , , Performed By: #### 5 7021-8 ####[facility]CLIA [id number] [address] WBC (Bld) [#/Vol] 5.95 10*3/uL Normal 3.70-11.00 [facility] Comment on above: Order Comment: Speci men Type: BLOOD SPECIMENOrdering Facility: External Submitter Address: , , Performed By: #### 5 7021-8 ####[facility]ORYCLIA [id number] [address] Magnesium SerPl-mCncon 01-23 Magnesium [Mass/Vol] 2.0 mg/dL Normal 1.7-2.3 [facility] Comment on above: Order Comment: Speci men Type: BLOOD SPECIMENOrdering Facility: External Submitter Address: , , Performed By: #### 1 9123-9, 64744-4, 3084-1 ####[facility]ATORYCLIA [id number] [address] PTH-Intact SerPl-mCncon -2 Parathyrin.intact [Mass/Vol] 79 pg/mL High [facility] Comment on above: Order Comment: Speci men Type: BLOOD SPECIMENOrdering Facility: External Submitter Address: , , Performed By: #### 2 731-8 ####[facility] LABCLIA [id number] [facility] [id number], [place] [address] [place] Renal function 2000 panelon 01-24-2024 Albumin [Mass/Vol] 4.0 g/dL Normal 3.9-4.9 [facility] Comment on above: Order Comment: Speci men Type: BLOOD SPECIMENOrdering Facility: External Submitter Address: , , Performed By: #### 1 9123-9, 07309-6, 3083-04 ####[facility]ATORYCLIA [id number] [address] Anion gap [Moles/Vol] 10 mmol/L Normal 8-15 [facility] Comment on above: Order Comment: Speci men Type: BLOOD SPECIMENOrdering Facility: External Submitter Address: , , Performed By: #### 1 91-9, , 3083-04 ####[facility]ORATORYCLIA [id number] [place] [address] [place] Calcium [Mass/Vol] 9.7 mg/dL Normal 8.5-10.2 [facility] Comment on above: Order Comment: Speci men Type: BLOOD SPECIMENOrdering Facility: External Submitter Address: , , Performed By: #### 1 9, , 3083-04 ####[facility]ATORYCLIA [id number] [address] [place] Chloride [Moles/Vol] 106 mmol/L Normal 98-107 [facility] Comment on above: Order Comment: Speci men Type: BLOOD SPECIMENOrdering Facility: External Submitter Address: , , Performed By: #### 1 9, , 3083-04 ####[facility]ATORYCLIA [id number] [address] [place] CO2 [Moles/Vol] 26 mmol/L Normal 22-30 [facility] Comment on above: Order Comment: Speci men Type: BLOOD SPECIMENOrdering Facility: External Submitter Address: , , Performed By: #### 1 9123-9, 00611-0, 3083-04 ####[facility]ATORYCLIA [id number] [address] Creatinine [Mass/Vol] 2.63 mg/dL High 0.73-1.22 [facility] Comment on above: Order Comment: Speci men Type: BLOOD SPECIMENOrdering Facility: External Submitter Address: , , Performed By: #### 1 91-9, 70209-9, 3083-04 ####[facility]ATORYCLIA [id number] [place] [address] [place] Creatinine and Glomerular filtration rate.predicted panel (S/P/Bld) 26 mL/min/1.73m??? Low >=60 [facility] Comment on above: Order Comment: Luz vaughan Type: BLOOD SPECIMENOrdering Facility: External Submitter Address: , , Result Comment: Breanne razo Glomerular Filtration Rate (eGFR) is calculated using the 2020 CKD-EPI creatinine equation. This equation utilizes serum creatinine, sex, and age as parameters. The creatinine assay has traceable calibration to isotope dilution-mass spectrometry. Refer to KDIGO guidelines for clinical interpretation. In patients with unstable renal function, e.g. those with acute kidney injury, the eGFR may not accurately reflect actual GFR. Performed By: #### 1 9123-9, 61953-1, 3083-04 ####[facility]ATORYCLIA [id number] [place] [address] [place] Glucose [Mass/Vol] 151 mg/dL High 74-99 [facility] Comment on above: Order Comment: Luz vaughan Type: BLOOD SPECIMENOrdering Facility: External Submitter Address: , , Result Comment: The [place] [employer] (ADA) provides guidance for cutoff values for fasting glucose and random glucose. The ADA defines fasting as no caloric intake for at least 8 hours. Fasting plasma glucose results between 100 to 125 mg/dL indicate increased risk for diabetes (prediabetes).Fasting plasma glucose results greater than or equal to 126 mg/dL meet the criteria for diagnosis of diabetes. In the absence of unequivocal hyperglycemia, results should be confirmed by repeat testing. In a patient with classic symptoms of hyperglycemia or hyperglycemic crisis, random plasma glucose results greater than or equal to 200 mg/dL meet the criteria for diagnosis of diabetes.Reference: Standards of Medical Care in Diabetes 2016, [place] [employer]. Diabetes Care. 2016.39(Suppl 1). Performed By: #### 1 9123-9, 96507-2, 3083- ####[facility]ATORYCLIA [id number] [place] [address] [place] Phosphate [Mass/Vol] 3.9 mg/dL Normal 2.7-4.8 [facility] Comment on above: Order Comment: Speci men Type: BLOOD SPECIMENOrdering Facility: External Submitter Address: , , Performed By: #### 1 9123-9, 38645-3, 3083-04 ####[facility]ORYCLIA [id number] [address] [place] Potassium [Moles/Vol] 4.9 mmol/L Normal 3.7-5.1 [facility] Comment on above: Order Comment: Speci men Type: BLOOD SPECIMENOrdering Facility: External Submitter Address: , , Performed By: #### 1 9123-9, 33748-8, 3083- ####[facility]ORYCLIA [id number] [address] [place] Sodium [Moles/Vol] 142 mmol/L Normal 136-144 [facility] Comment on above: Order Comment: Speci men Type: BLOOD SPECIMENOrdering Facility: External Submitter Address: , , Performed By: #### 1 91239, 73310-4, 3083 ####[facility]ORYCLIA [id number] [address] [place] Urea nitrogen [Mass/Vol] 47 mg/dL High 9-24 [facility] Comment on above: Order Comment: Speci men Type: BLOOD SPECIMENOrdering Facility: External Submitter Address: , , Performed By: #### 1 9123-9, 76546-3, 3083-04 ####[facility]ORYCLIA [id number] [address] [place] URINALYSIS, REFLEX MICROSCOP ICon 01-24-2024 Bilirubin Ql (U) Negative Normal Negative [facility] Comment on above: Order Comment: Speci men Type: URINE SPECIMENOrdering Facility: External Submitter Address: , , Performed By: #### L [id number] ####[facility]ORYCLIA [id number] [address] [place] Clarity (Unsp spec) Clear Normal Clear [facility] Comment on above: Order Comment: Speci men Type: URINE SPECIMENOrdering Facility: External Submitter Address: , , Performed By: #### L [id number] ####[facility]ATORYCLIA [id number] [address] [place] Color (U) Yellow Normal Yellow [facility] Comment on above: Order Comment: Speci men Type: URINE SPECIMENOrdering Facility: External Submitter Address: , , Performed By: #### L [id number] ####[facility]ATORYCLIA [id number] [address] Glucose Test strip (U) [Mass/Vol] 1+ Abnormal Negative [facility] Comment on above: Order Comment: Speci men Type: URINE SPECIMENOrdering Facility: External Submitter Address: , , Performed By: #### L [id number] ####[facility]ORYCLIA [id number] [address] Granular casts (Urine sed) [#/Area] 1-3 /LPF Abnormal 0 /LPF [facility] Comment on above: Order Comment: Speci men Type: URINE SPECIMENOrdering Facility: External Submitter Address: , , Performed By: #### L [id number] ####[facility]ATORYCLIA [id number] [address] Hemoglobin Ql (U) 2+ Abnormal Negative [facility] Comment on above: Order Comment: Speci men Type: URINE SPECIMENOrdering Facility: External Submitter Address: , , Performed By: #### L [id number] ####[facility]ATORYCLIA [id number] [address] Ketones Ql (U) Negative Normal Negative [facility] Comment on above: Order Comment: Speci men Type: URINE SPECIMENOrdering Facility: External Submitter Address: , , Performed By: #### L [id number] ####[facility]ATORYCLIA [id number] [address] Leukocyte esterase Test strip Ql (U) Negative Normal Negative [facility] Comment on above: Order Comment: Speci men Type: URINE SPECIMENOrdering Facility: External Submitter Address: , , Performed By: #### L [id number] ####[facility]ATORYCLIA [id number] [address] [place] Nitrite Ql (U) Negative Normal Negative [facility] Comment on above: Order Comment: Speci men Type: URINE SPECIMENOrdering Facility: External Submitter Address: , , Performed By: #### L [id number] ####[facility]ORYCLIA [id number] [address] pH (U) 6.0 [pH] Normal 5.0-8.0 [facility] Comment on above: Order Comment: Speci men Type: URINE SPECIMENOrdering Facility: External Submitter Address: , , Performed By: #### L [id number] ####[facility]ATORYCLIA [id number] [address] Protein (U) [Mass/Vol] 3+ Abnormal Negative [facility] Comment on above: Order Comment: Speci men Type: URINE SPECIMENOrdering Facility: External Submitter Address: , , Performed By: #### L [id number] ####[facility]ORYCLIA [id number] [address] RBC LM.HPF (Urine sed) [#/Area] 3-5 /HPF Abnormal 0-3 /HPF [facility] Comment on above: Order Comment: Speci men Type: URINE SPECIMENOrdering Facility: External Submitter Address: , , Performed By: #### L [id number] ####[facility]ORYCLIA [id number] [address] Specific gravity (U) [Rel density] 1.025 Normal 1.005-1.030 [facility] Comment on above: Order Comment: Speci men Type: URINE SPECIMENOrdering Facility: External Submitter Address: , , Performed By: #### L SG1521 ####[facility]ORYCLIA [id number] [address] Urobilinogen Ql (U) 0.2 EU/dL Normal 0.2-1.0 EU/dL [facility] Comment on above: Order Comment: Speci men Type: URINE SPECIMENOrdering Facility: External Submitter Address: , , Performed By: #### L [id number] ####[facility]ORYCLIA [id number] [address] WBC LM.HPF (Urine sed) [#/Area] 0-5 /HPF Normal 0-5 /HPF [facility] Comment on above: Order Comment: Speci men Type: URINE SPECIMENOrdering Facility: External Submitter Address: , , Performed By: #### L [id number] ####[facility]ORYCLIA [id number] [address] Urate SerPl-mCncon Urate [Mass/Vol] 5.6 mg/dL Normal 4.0-8.1 [facility] Comment on above: Order Comment: Speci men Type: BLOOD SPECIMENOrdering Facility: External Submitter Address: , , Performed By: #### 1 9123-9, 62617-4, 3084-1 ####[facility]ATORYCLIA [id number] [address] OF [facility] 12-22-2023 [facility] 12-18-2023 [facility] 30on 11-17-2023 30 HNO ID: [id number] Author: NOÉ FRAZIER PT Service: ? Author Type: Physical Therapist Type: 30 Filed: 11/17/2023 19:04 Note Text: Called all numbers listed for patient and left voice messages. Patient/caregiver did not return phone calls. Normal [facility] JOSÉ MANUEL ASHTON ([id number]) 1960 M T Date Time Provider Department 11/17/23 NOÉ FRAZIER HCSIND During your visit today, we recorded the following information about you: Noé Frazier, PT 11/17/2023 7:02 PM Signed Unable to reach patient by phone to schedule P.T. visit. Allergies As of Date: 11/17/2023 Noted Allergy Reaction PENICILLINS 07/24/2020 16 - Unknown Comments: Pt states he thinks he had a reaction as a child Date Reviewed: 11/16/2023 Reviewed by: Eda Bright RN - Fully Assessed Reason for Visit: Home Care [4073] Cmt: Unmade P.T. visit Prescriptions as of 11/17/2023 - diazePAM (VALIUM) 10 mg tablet Take 10 mg by mouth two times a day as needed for anxiety. - insulin lispro (HUMALOG KWIKPEN INSULIN) 100 unit/mL Inject 8 Units subcutaneously three times a day before meals. SLIDING SCALE: bld sugar 60-124=0 units 125-150=2 units, 151-200=4 units, 201-250=6 untis 251-300=8 units, 301-350=10 units, 351-400=12 units - amLODIPine (NORVASC) 5 mg tablet Take 1 tablet by mouth two times a day. - carvedilol (COREG) 25 mg tablet Take 1 tablet by mouth two times a day with meals. - cyclobenzaprine (FLEXERIL) 10 mg tablet Take 1 tablet by mouth three times a day as needed for muscle spasm. - hydrALAZINE (APRESOLINE) 25 mg tablet Take 1 tablet by mouth two times a day. - pantoprazole DR (PROTONIX) 40 mg tablet Take 1 tablet by mouth once daily. - polyethylene glycol 3350 17 gram packet Take 1 Packet by mouth once daily. Dissolve dose in 4 - 8 ounces of liquid and take as directed. - acetaminophen (TYLENOL) 500 mg tablet Take 2 tablets by mouth every 8 hours. - doxazosin (CARDURA) 1 mg tablet Take 1 tablet by mouth daily at bedtime. - DULoxetine (CYMBALTA) 30 mg capsule Take 1 capsule by mouth once daily. - insulin glargine (BASAGLAR KWIKPEN U-100 INSULIN) 100 unit/mL (3 mL) Inject 24 Units subcutaneously daily at bedtime. - insulin lispro (HUMALOG KWIKPEN) 100 unit/mL Inject 8 Units subcutaneously three times a day before meals. - semaglutide (OZEMPIC) 0.25 mg or 0.5 mg(2 mg/1.5 mL) pen Inject 0.5 mg subcutaneously one time a week. - pen needle,diabetic dual safty (BD AUTOSHIELD DUO PEN NEEDLE) 30 gauge x 3/16" ndle 1 Applicator four times daily. - senna (SENOKOT) 8.6 mg tab Take 1 tablet by mouth once daily. Facility-Administered Medications as of 11/17/2023 - sodium chloride 0.9 % (flush) 10 mL (BD POSIFLUSH) Meds Comments as of 11/15/2023: SEE EMAR FOR MEDICATIONS TAKEN LAST 04/19/21 07/31/20 The medications are managed by this patient by: PATIENT Miranda Lewis, OA 11/08/[address] Scott: "Patient to continue to use the SSI only, no regular scheduled Insulin dosing at this time." Patient's sister has been notified and verbalizes understanding." Richard Hinds RN Problem List As Of Date 11/17/2023 Noted Resolved Vitamin D deficiency [E55.9] 02/20/2020 Marijuana use [F12.90] 02/20/2020 Microalbuminuria [R80.9] 02/20/2020 Obesity, Class II, BMI 35-39.9 [E66.9] 02/20/2020 05/25/2023 Chronic bilateral low back pain [M54.50, G89.29]02/20/2020 Weakness [R53.1] 05/05/2020 06/15/2020 Decreased mobility and endurance [Z74.09] 05/05/2020 06/15/2020 Severe episode of recurrent major depressive di*05/28/2020 05/25/2023 Malignant neoplasm of rectum (HCC) [C20] 08/04/2020 05/25/2023 Conduct disorder [F91.9] 09/07/2020 05/25/2023 Spinal stenosis of lumbar region with neurogeni*11/06/2020 Mixed hyperlipidemia [E78.2] 11/06/2020 HTN (hypertension) [I10] 11/06/2020 Generalized anxiety disorder [F41.1] 11/19/2020 Peripheral sensory-motor axonal polyneuropathy *12/09/2020 Lumbar radiculopathy [M54.16] 12/09/2020 Dizziness [R42] 02/20/2021 05/25/2023 Microscopic hematuria [R31.29] 03/08/2021 01/17/2022 H/O medication noncompliance [Z91.148] 03/08/2021 05/25/2023 DKA (diabetic ketoacidosis) (HCC) [E11.10] 04/13/2021 05/25/2023 Severe protein-calorie malnutrition (HCC) [E43] 04/16/2021 05/25/2023 Benign prostatic hyperplasia [N40.0] 07/05/2021 05/25/2023 Glaucoma suspect of both eyes [H40.003] 11/05/2021 05/25/2023 Nuclear senile cataract of both eyes [H25.13] 11/05/2021 09/09/2022 Diabetic retinopathy (HCC) [E11.319] 11/05/2021 Stage 3b chronic kidney disease (HCC) [N18.32] 01/17/2022 Hyperglycemia [R73.9] 01/18/2022 05/25/2023 Alcohol dependence (HCC) [F10.20] 01/18/2022 Abdominal discomfort [R10.9] 01/18/2022 01/19/2022 Constipation [K59.00] 01/18/2022 05/25/2023 MDD (major depressive disorder), severe (HCC) [*01/20/2022 Mood disorder (HCC) [F39] 03/01/2022 05/25/2023 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 Normal [facility] 36on 11-10-2023 36 S: Patient sister brain lled the clinical access center with complaint of Questions about G7 Dexcom. B: Ongoing unsure if the reader will seed cone picker the blood sugar reading when he places the new G7 A: Patient c/o trying to put new G7 sensor on. Asking if the reader will work when they replace the sensor. R: Advised the reader should automatically seed cone picker with the new G7 sensor. If any issues would need to call Dexcom for advice. Home Care advice given. Patient instructed to call back with worsening symptoms, concerns or questions. Patient verbalized understanding. Message to the office for review by the provider and needs recommendation from Provider for treatment going forward. Reason for Disposition Caller has medicine question only, adult not sick, AND triager answers question Protocols used: Medication Question [id number]-20[facility] Tele[facility] ([facility]IND) -- JOSÉ MANUEL ASHTON ([id number]) 1960 [place] [facility] Date Time Provider Department 10/27/23 BUNNY SCOTT HCSIND During your visit today, we recorded the following information about you: Jessica Car Inspection And Repair ManagerMaxine 10/27/2023 1:20 PM Signed There has been a delay in service for Home Care PT Evaluation for this patient due to schedule conflict. Patient was notified on 10/27/23. Thank you for this referral, please contact us with any questions. Maxine Lopez Car Inspection And Repair Manager Allergies As of Date: 10/27/2023 Noted Allergy Reaction PENICILLINS 07/24/2020 16 - Unknown Comments: Pt states he thinks he had a reaction as a child Date Reviewed: 10/26/2023 Reviewed by: Eda Bright, RN - Fully Assessed Reason for Visit: Home Care [4073] Cmt: DELAY IN SERVICE Prescriptions as of 10/27/2023 - amLODIPine (NORVASC) 5 mg tablet Take 1 tablet by mouth two times a day. - carvedilol (COREG) 25 mg tablet Take 1 tablet by mouth two times a day with meals. - cyclobenzaprine (FLEXERIL) 10 mg tablet Take 1 tablet by mouth three times a day as needed for muscle spasm. - hydrALAZINE (APRESOLINE) 25 mg tablet Take 1 tablet by mouth two times a day. - pantoprazole DR (PROTONIX) 40 mg tablet Take 1 tablet by mouth once daily. - polyethylene glycol 3350 17 gram packet Take 1 Packet by mouth once daily. Dissolve dose in 4 - 8 ounces of liquid and take as directed. - acetaminophen (TYLENOL) 500 mg tablet Take 2 tablets by mouth every 8 hours. - doxazosin (CARDURA) 1 mg tablet Take 1 tablet by mouth daily at bedtime. - DULoxetine (CYMBALTA) 30 mg capsule Take 1 capsule by mouth once daily. - oxyCODONE IR (ROXICODONE) 10 mg tab Take 1 tablet by mouth every 8 hours as needed for pain for up to 7 days. - insulin glargine (BASAGLAR KWIKPEN U-100 INSULIN) 100 unit/mL (3 mL) Inject 24 Units subcutaneously daily at bedtime. - insulin lispro (HUMALOG KWIKPEN) 100 unit/mL Inject 8 Units subcutaneously three times a day before meals. - semaglutide (OZEMPIC) 0.25 mg or 0.5 mg(2 mg/1.5 mL) pen Inject 0.5 mg subcutaneously one time a week. - pen needle,diabetic dual safty (BD AUTOSHIELD DUO PEN NEEDLE) 30 gauge x 3/16" ndle 1 Applicator four times daily. - senna (SENOKOT) 8.6 mg tab Take 1 tablet by mouth once daily. Facility-Administered Medications as of 10/27/2023 - sodium chloride 0.9 % (flush) 10 mL (BD POSIFLUSH) Meds Comments as of 04/19/2021: SEE EMAR FOR MEDICATIONS TAKEN LAST 04/19/21 07/31/20 The medications are managed by this patient by: PATIENT Miranda Lewis, OA Problem List As Of Date 10/27/2023 Noted Resolved Vitamin D deficiency [E55.9] 02/20/2020 Marijuana use [F12.90] 02/20/2020 Microalbuminuria [R80.9] 02/20/2020 Obesity, Class II, BMI 35-39.9 [E66.9] 02/20/2020 05/25/2023 Chronic bilateral low back pain [M54.50, G89.29]02/20/2020 Weakness [R53.1] 05/05/2020 06/15/2020 Decreased mobility and endurance [Z74.09] 05/05/2020 06/15/2020 Severe episode of recurrent major depressive di*05/28/2020 05/25/2023 Malignant neoplasm of rectum (HCC) [C20] 08/04/2020 05/25/2023 Conduct disorder [F91.9] 09/07/2020 05/25/2023 Spinal stenosis of lumbar region with neurogeni*11/06/2020 Mixed hyperlipidemia [E78.2] 11/06/2020 HTN (hypertension) [I10] 11/06/2020 Generalized anxiety disorder [F41.1] 11/19/2020 Peripheral sensory-motor axonal polyneuropathy *12/09/2020 Lumbar radiculopathy [M54.16] 12/09/2020 Dizziness [R42] 02/20/2021 05/25/2023 Microscopic hematuria [R31.29] 03/08/2021 01/17/2022 H/O medication noncompliance [Z91.148] 03/08/2021 05/25/2023 DKA (diabetic ketoacidosis) (HCC) [E11.10] 04/13/2021 05/25/2023 Severe protein-calorie malnutrition (HCC) [E43] 04/16/2021 05/25/2023 Benign prostatic hyperplasia [N40.0] 07/05/2021 05/25/2023 Glaucoma suspect of both eyes [H40.003] 11/05/2021 05/25/2023 Nuclear senile cataract of both eyes [H25.13] 11/05/2021 09/09/2022 Diabetic retinopathy (HCC) [E11.319] 11/05/2021 Stage 3b chronic kidney disease (HCC) [N18.32] 01/17/2022 Hyperglycemia [R73.9] 01/18/2022 05/25/2023 Alcohol dependence (HCC) [F10.20] 01/18/2022 Abdominal discomfort [R10.9] 01/18/2022 01/19/2022 Constipation [K59.00] 01/18/2022 05/25/2023 MDD (major depressive disorder), severe (HCC) [*01/20/2022 Mood disorder (HCC) [F39] 03/01/2022 05/25/2023 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 [facility] CNPN Telephone (HCSIND) -- JOSÉ MANUEL ASHTON ([id number]) 1960 M [facility] Date Time Provider Department 10/27/23 BUNNY SCOTT HCSIND During your visit today, we recorded the following information about you: Lopez Car Inspection And Repair ManagerMaxine 10/27/2023 1:20 PM Signed Patient accepted and confirmed PT eval for 10/28/23. Allergies As of Date: 10/27/2023 Noted Allergy Reaction PENICILLINS 07/24/2020 16 - Unknown Comments: Pt states he thinks he had a reaction as a child Date Reviewed: 10/26/2023 Reviewed by: Eda Bright, RN - Fully Assessed Reason for Visit: Home Care [4073] Cmt: Scheduling Confirmation (Evaluation visit) Prescriptions as of 10/27/2023 - amLODIPine (NORVASC) 5 mg tablet Take 1 tablet by mouth two times a day. - carvedilol (COREG) 25 mg tablet Take 1 tablet by mouth two times a day with meals. - cyclobenzaprine (FLEXERIL) 10 mg tablet Take 1 tablet by mouth three times a day as needed for muscle spasm. - hydrALAZINE (APRESOLINE) 25 mg tablet Take 1 tablet by mouth two times a day. - pantoprazole DR (PROTONIX) 40 mg tablet Take 1 tablet by mouth once daily. - polyethylene glycol 3350 17 gram packet Take 1 Packet by mouth once daily. Dissolve dose in 4 - 8 ounces of liquid and take as directed. - acetaminophen (TYLENOL) 500 mg tablet Take 2 tablets by mouth every 8 hours. - doxazosin (CARDURA) 1 mg tablet Take 1 tablet by mouth daily at bedtime. - DULoxetine (CYMBALTA) 30 mg capsule Take 1 capsule by mouth once daily. - oxyCODONE IR (ROXICODONE) 10 mg tab Take 1 tablet by mouth every 8 hours as needed for pain for up to 7 days. - insulin glargine (BASAGLAR KWIKPEN U-100 INSULIN) 100 unit/mL (3 mL) Inject 24 Units subcutaneously daily at bedtime. - insulin lispro (HUMALOG KWIKPEN) 100 unit/mL Inject 8 Units subcutaneously three times a day before meals. - semaglutide (OZEMPIC) 0.25 mg or 0.5 mg(2 mg/1.5 mL) pen Inject 0.5 mg subcutaneously one time a week. - pen needle,diabetic dual safty (BD AUTOSHIELD DUO PEN NEEDLE) 30 gauge x 3/16" ndle 1 Applicator four times daily. - senna (SENOKOT) 8.6 mg tab Take 1 tablet by mouth once daily. Facility-Administered Medications as of 10/27/2023 - sodium chloride 0.9 % (flush) 10 mL (BD POSIFLUSH) Meds Comments as of 04/19/2021: SEE EMAR FOR MEDICATIONS TAKEN LAST 04/19/21 07/31/20 The medications are managed by this patient by: PATIENT ZIGGY Wong Problem List As Of Date 10/27/2023 Noted Resolved Vitamin D deficiency [E55.9] 02/20/2020 Marijuana use [F12.90] 02/20/2020 Microalbuminuria [R80.9] 02/20/2020 Obesity, Class II, BMI 35-39.9 [E66.9] 02/20/2020 05/25/2023 Chronic bilateral low back pain [M54.50, G89.29]02/20/2020 Weakness [R53.1] 05/05/2020 06/15/2020 Decreased mobility and endurance [Z74.09] 05/05/2020 06/15/2020 Severe episode of recurrent major depressive di*05/28/2020 05/25/2023 Malignant neoplasm of rectum (HCC) [C20] 08/04/2020 05/25/2023 Conduct disorder [F91.9] 09/07/2020 05/25/2023 Spinal stenosis of lumbar region with neurogeni*11/06/2020 Mixed hyperlipidemia [E78.2] 11/06/2020 HTN (hypertension) [I10] 11/06/2020 Generalized anxiety disorder [F41.1] 11/19/2020 Peripheral sensory-motor axonal polyneuropathy *12/09/2020 Lumbar radiculopathy [M54.16] 12/09/2020 Dizziness [R42] 02/20/2021 05/25/2023 Microscopic hematuria [R31.29] 03/08/2021 01/17/2022 H/O medication noncompliance [Z91.148] 03/08/2021 05/25/2023 DKA (diabetic ketoacidosis) (HCC) [E11.10] 04/13/2021 05/25/2023 Severe protein-calorie malnutrition (HCC) [E43] 04/16/2021 05/25/2023 Benign prostatic hyperplasia [N40.0] 07/05/2021 05/25/2023 Glaucoma suspect of both eyes [H40.003] 11/05/2021 05/25/2023 Nuclear senile cataract of both eyes [H25.13] 11/05/2021 09/09/2022 Diabetic retinopathy (HCC) [E11.319] 11/05/2021 Stage 3b chronic kidney disease (HCC) [N18.32] 01/17/2022 Hyperglycemia [R73.9] 01/18/2022 05/25/2023 Alcohol dependence (HCC) [F10.20] 01/18/2022 Abdominal discomfort [R10.9] 01/18/2022 01/19/2022 Constipation [K59.00] 01/18/2022 05/25/2023 MDD (major depressive disorder), severe (HCC) [*01/20/2022 Mood disorder (HCC) [F39] 03/01/2022 05/25/2023 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 [K22.719] 03/01/2022 Acute kidney injury (HCC) [N17.9] 03/30/2022 06/11/2023 Nausea and vomiting [R11.2] 03/30/2022 05/25/2023 Nicotine use disorder, F17.2 [F17.200] 03/31/2022 Nuclear sclerotic cataract of left eye [H25.12] 08/18/2022 08/18/2022 Nuclear senile cataract of right eye [H25.11] 09/08/2022 09/08/2022 Arthritis [M19.90] 09/14/2022 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 [facility] Jovani 10-21-2023 CNPN Telephone (HCSIND) -- JOSÉ MANUEL ASHTON ([id number]) 1960 M [facility] Date Time Provider Department 10/21/23 KARLA WORLEY HCSIND During your visit today, we recorded the following information about you: Karla Worley RN 10/21/2023 9:47 PM Signed Patient accepted and confirmed home health start of care (SOC) for 10/22/23. Visit time established. Allergies As of Date: 10/21/2023 Noted Allergy Reaction PENICILLINS 07/24/2020 16 - Unknown Comments: Pt states he thinks he had a reaction as a child Date Reviewed: 10/20/2023 Reviewed by: Ester Benitez RN - Fully Assessed Prescriptions as of 10/21/2023 - amLODIPine (NORVASC) 5 mg tablet Take 1 tablet by mouth two times a day. - carvedilol (COREG) 25 mg tablet Take 1 tablet by mouth two times a day with meals. - cephALEXin (KEFLEX) 500 mg capsule Take 1 capsule by mouth three times a day for 5 days. - cyclobenzaprine (FLEXERIL) 10 mg tablet Take 1 tablet by mouth three times a day as needed for muscle spasm. - hydrALAZINE (APRESOLINE) 25 mg tablet Take 1 tablet by mouth two times a day. - pantoprazole DR (PROTONIX) 40 mg tablet Take 1 tablet by mouth once daily. - polyethylene glycol 3350 17 gram packet Take 1 Packet by mouth once daily. Dissolve dose in 4 - 8 ounces of liquid and take as directed. - acetaminophen (TYLENOL) 500 mg tablet Take 2 tablets by mouth every 8 hours. - doxazosin (CARDURA) 1 mg tablet Take 1 tablet by mouth daily at bedtime. - DULoxetine (CYMBALTA) 30 mg capsule Take 1 capsule by mouth once daily. - oxyCODONE IR (ROXICODONE) 10 mg tab Take 1 tablet by mouth every 8 hours as needed for pain for up to 7 days. - insulin glargine (BASAGLAR KWIKPEN U-100 INSULIN) 100 unit/mL (3 mL) Inject 24 Units subcutaneously daily at bedtime. - insulin lispro (HUMALOG KWIKPEN) 100 unit/mL Inject 8 Units subcutaneously three times a day before meals. - semaglutide (OZEMPIC) 0.25 mg or 0.5 mg(2 mg/1.5 mL) pen Inject 0.5 mg subcutaneously one time a week. - pen needle,diabetic dual safty (BD AUTOSHIELD DUO PEN NEEDLE) 30 gauge x 3/16" ndle 1 Applicator four times daily. - senna (SENOKOT) 8.6 mg tab Take 1 tablet by mouth once daily. Facility-Administered Medications as of 10/21/2023 - sodium chloride 0.9 % (flush) 10 mL (BD POSIFLUSH) Meds Comments as of 04/19/2021: SEE EMAR FOR MEDICATIONS TAKEN LAST 04/19/21 07/31/20 The medications are managed by this patient by: PATIENT Miranda Lewis, OA Problem List As Of Date 10/21/2023 Noted Resolved Vitamin D deficiency [E55.9] 02/20/2020 Marijuana use [F12.90] 02/20/2020 Microalbuminuria [R80.9] 02/20/2020 Obesity, Class II, BMI 35-39.9 [E66.9] 02/20/2020 05/25/2023 Chronic bilateral low back pain [M54.50, G89.29]02/20/2020 Weakness [R53.1] 05/05/2020 06/15/2020 Decreased mobility and endurance [Z74.09] 05/05/2020 06/15/2020 Severe episode of recurrent major depressive di*05/28/2020 05/25/2023 Malignant neoplasm of rectum (HCC) [C20] 08/04/2020 05/25/2023 Conduct disorder [F91.9] 09/07/2020 05/25/2023 Spinal stenosis of lumbar region with neurogeni*11/06/2020 Mixed hyperlipidemia [E78.2] 11/06/2020 HTN (hypertension) [I10] 11/06/2020 Generalized anxiety disorder [F41.1] 11/19/2020 Peripheral sensory-motor axonal polyneuropathy *12/09/2020 Lumbar radiculopathy [M54.16] 12/09/2020 Dizziness [R42] 02/20/2021 05/25/2023 Microscopic hematuria [R31.29] 03/08/2021 01/17/2022 H/O medication noncompliance [Z91.148] 03/08/2021 05/25/2023 DKA (diabetic ketoacidosis) (HCC) [E11.10] 04/13/2021 05/25/2023 Severe protein-calorie malnutrition (HCC) [E43] 04/16/2021 05/25/2023 Benign prostatic hyperplasia [N40.0] 07/05/2021 05/25/2023 Glaucoma suspect of both eyes [H40.003] 11/05/2021 05/25/2023 Nuclear senile cataract of both eyes [H25.13] 11/05/2021 09/09/2022 Diabetic retinopathy (HCC) [E11.319] 11/05/2021 Stage 3b chronic kidney disease (HCC) [N18.32] 01/17/2022 Hyperglycemia [R73.9] 01/18/2022 05/25/2023 Alcohol dependence (HCC) [F10.20] 01/18/2022 Abdominal discomfort [R10.9] 01/18/2022 01/19/2022 Constipation [K59.00] 01/18/2022 05/25/2023 MDD (major depressive disorder), severe (HCC) [*01/20/2022 Mood disorder (HCC) [F39] 03/01/2022 05/25/2023 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 [K22.719] 03/01/2022 Acute kidney injury (HCC) [N17.9] 03/30/2022 06/11/2023 Nausea and vomiting [R11.2] 03/30/2022 05/25/2023 Nicotine use disorder, F17.2 [F17.200] 03/31/2022 Nuclear sclerotic cataract of left eye [H25.12] 08/18/2022 08/18/2022 Nuclear senile cataract of right eye [H25.11] 09/08/2022 09/08/2022 Arthritis [M19.90] 09/14/2022 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 [facility] [id number] 10-20-2023 [id number] [facility] CNDSon 10-20-2023 CNDS [facility] CNPNon 10-20-2023 CNPN Telephone (HCSIND) -- JOSÉ MANUEL ASHTON ([id number]) 1960 M T Date Time Provider Department 10/20/23 BUNNY SCOTT HCSIND During your visit today, we recorded the following information about you: Kenya Garber 10/20/2023 12:56 PM Signed Called patient to confirm and schedule start of care visit. No answer. Left voicemail Allergies As of Date: 10/20/2023 Noted Allergy Reaction PENICILLINS 07/24/2020 16 - Unknown Comments: Pt states he thinks he had a reaction as a child Date Reviewed: 10/20/2023 Reviewed by: Ester Benitez, RN - Fully Assessed Reason for Visit: Home Care [4073] Prescriptions as of 10/20/2023 - amLODIPine (NORVASC) 5 mg tablet Take 1 tablet by mouth two times a day. - carvedilol (COREG) 25 mg tablet Take 1 tablet by mouth two times a day with meals. - cephALEXin (KEFLEX) 500 mg capsule Take 1 capsule by mouth three times a day for 5 days. - cyclobenzaprine (FLEXERIL) 10 mg tablet Take 1 tablet by mouth three times a day as needed for muscle spasm. - hydrALAZINE (APRESOLINE) 25 mg tablet Take 1 tablet by mouth two times a day. - pantoprazole DR (PROTONIX) 40 mg tablet Take 1 tablet by mouth once daily. - polyethylene glycol 3350 17 gram packet Take 1 Packet by mouth once daily. Dissolve dose in 4 - 8 ounces of liquid and take as directed. - acetaminophen (TYLENOL) 500 mg tablet Take 2 tablets by mouth every 8 hours. - doxazosin (CARDURA) 1 mg tablet Take 1 tablet by mouth daily at bedtime. - DULoxetine (CYMBALTA) 30 mg capsule Take 1 capsule by mouth once daily. - oxyCODONE IR (ROXICODONE) 10 mg tab Take 1 tablet by mouth every 8 hours as needed for pain for up to 7 days. - insulin glargine (BASAGLAR KWIKPEN U-100 INSULIN) 100 unit/mL (3 mL) Inject 24 Units subcutaneously daily at bedtime. - insulin lispro (HUMALOG KWIKPEN) 100 unit/mL Inject 8 Units subcutaneously three times a day before meals. - semaglutide (OZEMPIC) 0.25 mg or 0.5 mg(2 mg/1.5 mL) pen Inject 0.5 mg subcutaneously one time a week. - pen needle,diabetic dual safty (BD AUTOSHIELD DUO PEN NEEDLE) 30 gauge x 3/16" ndle 1 Applicator four times daily. - senna (SENOKOT) 8.6 mg tab Take 1 tablet by mouth once daily. Facility-Administered Medications as of 10/20/2023 - insulin lispro 5 Units injection (rapid acting) (ADMElog) - insulin glargine 20 Units pen (long acting) - senna-docusate 8.6-50 mg 1 tablet (SENNA-S) - oxyCODONE IR 10 mg tab(s) (ROXICODONE) - cephALEXin 500 mg cap(s) (KEFLEX) - DULoxetine 30 mg cap(s) (CYMBALTA) - polyethylene glycol 3350 17 g packet - acetaminophen 1,000 mg tab(s) (TYLENOL) - cyclobenzaprine 10 mg tab(s) (FLEXERIL) - lidocaine 4 % 2 Patch (SALONPAS) - lidocaine patch - REMOVE - lidocaine - VERIFY PATCH - doxazosin 1 mg tab(s) (CARDURA) - hydrALAZINE 25 mg tab(s) (APRESOLINE) - amLODIPine 5 mg tab(s) (NORVASC) - pantoprazole DR 40 mg tab(s) (PROTONIX) - aluminum-magnesium hydroxide-simethicone 200-200-20 mg/5 mL 30 mL - magnesium hydroxide 400 mg/5 mL 30 mL (MOM) - dextrose 40 % 15 g - glucagon 1 mg injection - dextrose 10% iv bolus Meds Comments as of 04/19/2021: SEE EMAR FOR MEDICATIONS TAKEN LAST 04/19/21 07/31/20 The medications are managed by this patient by: PATIENT Miranda Lewis, OA Problem List As Of Date 10/20/2023 Noted Resolved Vitamin D deficiency [E55.9] 02/20/2020 Marijuana use [F12.90] 02/20/2020 Microalbuminuria [R80.9] 02/20/2020 Obesity, Class II, BMI 35-39.9 [E66.9] 02/20/2020 05/25/2023 Chronic bilateral low back pain [M54.50, G89.29]02/20/2020 Weakness [R53.1] 05/05/2020 06/15/2020 Decreased mobility and endurance [Z74.09] 05/05/2020 06/15/2020 Severe episode of recurrent major depressive di*05/28/2020 05/25/2023 Malignant neoplasm of rectum (HCC) [C20] 08/04/2020 05/25/2023 Conduct disorder [F91.9] 09/07/2020 05/25/2023 Spinal stenosis of lumbar region with neurogeni*11/06/2020 Mixed hyperlipidemia [E78.2] 11/06/2020 HTN (hypertension) [I10] 11/06/2020 Generalized anxiety disorder [F41.1] 11/19/2020 Peripheral sensory-motor axonal polyneuropathy *12/09/2020 Lumbar radiculopathy [M54.16] 12/09/2020 Dizziness [R42] 02/20/2021 05/25/2023 Microscopic hematuria [R31.29] 03/08/2021 01/17/2022 H/O medication noncompliance [Z91.148] 03/08/2021 05/25/2023 DKA (diabetic ketoacidosis) (HCC) [E11.10] 04/13/2021 05/25/2023 Severe protein-calorie malnutrition (HCC) [E43] 04/16/2021 05/25/2023 Benign prostatic hyperplasia [N40.0] 07/05/2021 05/25/2023 Glaucoma suspect of both eyes [H40.003] 11/05/2021 05/25/2023 Nuclear senile cataract of both eyes [H25.13] 11/05/2021 09/09/2022 Diabetic retinopathy (HCC) [E11.319] 11/05/2021 Stage 3b chronic kidney disease (HCC) [N18.32] 01/17/2022 Hyperglycemia [R73.9] 01/18/2022 05/25/2023 Alcohol dependence (HCC) [F10.20] 01/18/2022 Abdominal discomfort [R10.9] more content not included)... [facility] NURSING PROGon 10-20-2023 NURSING PROG [facility] SOCIAL WORKon 10-20-2023 SOCIAL WORK [facility] SOCIAL WORK [facility] POTASSIUMon 10-19-2023 Potassium [Moles/Vol] 4.6 mmol/L Normal 3.7-5.[address] [facility] Comment on above: Order Comment: Speci men Type: BLOOD SPECIMENOrdering Facility: [facility] Address: [address] [place] [address] Performed By: #### K 1 ####[facility] Analyze ReI LABCLIA [id number] [place] [address] [place] SOCIAL WORKon 10-19-2023 SOCIAL WORK Normal [facility] THERAPY NTon 10-19-2023 THERAPY NT Normal [facility] THERAPY NT Normal [facility] THERAPY NT [facility] THERAPY NT Normal [facility] Basic metabolic 2000 panelon 10-18-2023 Anion gap [Moles/Vol] 9 mmol/L Normal 8-[address] [facility] Comment on above: Order Comment: Speci men Type: BLOOD SPECIMENOrdering Facility: [facility] Address: [address] [place] [address] Performed By: #### 2 4321-2 ####[facility] Analyze ReI LABCLIA [id number] [place] [address] [place] Calcium [Mass/Vol] 8.7 mg/dL Normal 8.5-10.2 [facility] Comment on above: Order Comment: Speci men Type: BLOOD SPECIMENOrdering Facility: [facility] Address: [address] [place] [address] Performed By: #### 2 4321-2 ####[facility] LODI LABCLIA [id number] [place] [address] [place] Chloride [Moles/Vol] 105 mmol/L Normal 98-107 [facility] Comment on above: Order Comment: Speci men Type: BLOOD SPECIMENOrdering Facility: [facility] Address: [address] [place] [address] Performed By: #### 2 4321-2 ####[facility] Analyze ReI LABCLIA [id number] [place] [address] [place] CO2 [Moles/Vol] 26 mmol/L Normal 22-30 [facility] Comment on above: Order Comment: Speci men Type: BLOOD SPECIMENOrdering Facility: [facility] Address: [address] [place] [address] Performed By: #### 2 4321-2 ####[facility] Analyze ReI LABCLIA [id number] [place] [address] [place] Creatinine [Mass/Vol] 2.26 mg/dL High 0.73-1.22 [facility] Comment on above: Order Comment: Speci men Type: BLOOD SPECIMENOrdering Facility: [facility] Address: [address] [place] [address] Performed By: #### 2 4321-2 ####[facility] Analyze ReI LABCLIA [id number] [place] [address] [facility] Creatinine and Glomerular filtration rate.predicted panel (S/P/Bld) 32 mL/min/1.73m??? Low >=60 [facility] Comment on above: Order Comment: Speci men Type: BLOOD SPECIMENOrdering Facility: [facility] Address: [address] [place] [address] Result Comment: Breanne mated Glomerular Filtration Rate (eGFR) is calculated using the 2020 CKD-EPI creatinine equation. This equation utilizes serum creatinine, sex, and age as parameters. The creatinine assay has traceable calibration to isotope dilution-mass spectrometry. Refer to KDIGO guidelines for clinical interpretation. In patients with unstable renal function, e.g. those with acute kidney injury, the eGFR may not accurately reflect actual GFR. Performed By: #### 2 4321-2 ####[facility] Analyze ReI LABCLIA [id number] [place] [address] [place] Glucose [Mass/Vol] 100 mg/dL High 74-99 [facility] Comment on above: Order Comment: Luz vaughan Type: BLOOD SPECIMENOrdering Facility: [facility] Address: [address] [place], [place] [id number] Result Comment: The [place] [employer] (ADA) provides guidance for cutoff values for fasting glucose and random glucose. The ADA defines fasting as no caloric intake for at least 8 hours. Fasting plasma glucose results between 100 to 125 mg/dL indicate increased risk for diabetes (prediabetes).Fasting plasma glucose results greater than or equal to 126 mg/dL meet the criteria for diagnosis of diabetes. In the absence of unequivocal hyperglycemia, results should be confirmed by repeat testing. In a patient with classic symptoms of hyperglycemia or hyperglycemic crisis, random plasma glucose results greater than or equal to 200 mg/dL meet the criteria for diagnosis of diabetes.Reference: Standards of Medical Care in Diabetes 2016, [place] [employer]. Diabetes Care. 2016.39(Suppl 1). Performed By: #### 2 4321-2 ####[facility] [facility] [place] Analyze ReI LABCLIA [id number] [place] [address] [place] Potassium [Moles/Vol] 5.8 mmol/L High 3.7-5.1 [facility] Comment on above: Order Comment: Luz vaughan Type: BLOOD SPECIMENOrdering Facility: [facility] Address: [address] [place] [address] Performed By: #### 2 4321-2 ####[facility] [place] LABCLIA [id number] [place] [address] [place] Sodium [Moles/Vol] 140 mmol/L Normal 136-144 [facility] Comment on above: Order Comment: Luz vaughan Type: BLOOD SPECIMENOrdering Facility: [facility] Address: [address] [id number] Performed By: #### 2 4321-2 ####[facility] [place] LABCLIA [id number] [facility] [place] [address] [place] Urea nitrogen [Mass/Vol] 44 mg/dL High 9-24 [facility] Comment on above: Order Comment: Speci men Type: BLOOD SPECIMENOrdering Facility: [facility] Address: [address] [place] [address] Performed By: #### 2 4321-2 ####[facility] [place] LABCLIA [id number] [facility] [address] [facility] [place] CBC panel Auto (Bld)on 10-17 Erythrocyte distribution width (RBC) [Ratio] 13.9 % Normal 11.5-15.0 [facility] Comment on above: Order Comment: Speci men Type: BLOOD SPECIMENOrdering Facility: [facility] Address: [address] [place] [address] Performed By: #### 5 8410-2 ####[facility] LABCLIA [id number] [place] [address] [facility] Hematocrit (Bld) [Volume fraction] 28.1 % Low 39.0-51.0 [facility] Comment on above: Order Comment: Speci men Type: BLOOD SPECIMENOrdering Facility: [facility] Address: [address] [place] [address] Performed By: #### 5 8410-2 ####[facility] [place] LABCLIA [id number] [place] [address] [place] Hemoglobin (Bld) [Mass/Vol] 8.7 g/dL Low 13.0-17.0 [facility] Comment on above: Order Comment: Speci men Type: BLOOD SPECIMENOrdering Facility: [facility] Address: [address] [place], [place] [address] Performed By: #### 5 8410-2 ####[facility] [place] LABCLIA [id number] [facility] [place] [address] [facility] MCH (RBC) [Entitic mass] 27.4 pg Normal 26.0-34.0 [facility] Comment on above: Order Comment: Speci men Type: BLOOD SPECIMENOrdering Facility: [facility] Address: [address] [place] [address] Performed By: #### 5 8410-2 ####[facility] LABCLIA [id number] [place] [address] [place] MCHC (RBC) [Mass/Vol] 31.0 g/dL Normal 30.5-36.0 [facility] Comment on above: Order Comment: Speci men Type: BLOOD SPECIMENOrdering Facility: [facility] Address: [address] [place] [address] Performed By: #### 5 8410-2 ####[facility] LABCLIA [id number] [address] STATES OF [facility] MCV (RBC) [Entitic vol] 88.4 fL Normal 80.0-100.0 [facility] Comment on above: Order Comment: Speci men Type: BLOOD SPECIMENOrdering Facility: [facility] Address: [address] [place] [address] Performed By: #### 5 8410-2 ####[facility] LABCLIA [id number] [place] [id number] [place] Platelet mean volume (Bld) [Entitic vol] 8.6 fL Low 9.0-12.7 [facility] Comment on above: Order Comment: Speci men Type: BLOOD SPECIMENOrdering Facility: [facility] Address: [address] [place] [address] Performed By: #### 5 8410-2 ####[facility] LABCLIA [id number] [address] Platelets (Bld) [#/Vol] 438 10*3/uL High 150-400 [facility] Comment on above: Order Comment: Speci men Type: BLOOD SPECIMENOrdering Facility: [facility] Address: [address] [place] [address] Performed By: #### 5 8410-2 ####[facility] LABCLIA [id number] [place] [address] [facility] RBC (Bld) [#/Vol] 3.18 10*6/uL Low 4.20-6.00 [facility] Comment on above: Order Comment: Speci men Type: BLOOD SPECIMENOrdering Facility: [facility] Address: [address] [place] [address] Performed By: #### 5 8410-2 ####[facility] [place] LABCLIA [id number] [place] [address] [facility] WBC (Bld) [#/Vol] 5.65 10*3/uL Normal 3.70-11.00 [facility] Comment on above: Order Comment: Speci men Type: BLOOD SPECIMENOrdering Facility: [facility] Address: [address] [place] [address] Performed By: #### 5 8410-2 ####[facility] LABCLIA [id number] [place] [address] [facility] NURSING PROGon 10-18-2023 NURSING PROG Normal [facility] POTASSIUMon 10-18-2023 Potassium [Moles/Vol] 5.4 mmol/L High 3.7-5.1 [facility] Comment on above: Order Comment: Speci men Type: BLOOD SPECIMENOrdering Facility: [facility] Address: [address] [place] [address] Performed By: #### K 1 ####[facility] [place] LABCLIA [id number] [place] [address] [facility] Potassium [Moles/Vol] 5.5 mmol/L High 3.7-5.1 [facility] Comment on above: Order Comment: Speci men Type: BLOOD SPECIMENOrdering Facility: [facility] Address: [address] [place] [address] Performed By: #### K 1 ####[facility] [place] LABCLIA [id number] [place] [address] [place] SOCIAL WORKon 10-18-2023 SOCIAL WORK Normal [facility] SOCIAL WORK Normal [facility] SOCIAL WORK Normal [facility] THERAPY NTon 10-18-2023 THERAPY NT Normal [facility] THERAPY NT Normal [facility] CASE MANAGEMon 10-17-2023 CASE MANAGEM Normal [facility] SOCIAL WORKon 10-17-2023 SOCIAL WORK Normal [facility] THERAPY NTon 10-17-2023 THERAPY NT Normal [facility] THERAPY NT Normal [facility] THERAPY NTon 10-16-2023 THERAPY NT Normal [facility] THERAPY NT Normal [facility] THERAPY NT Normal [facility] NURSING PROGon 10-15-2023 NURSING PROG Normal [facility] THERAPY NTon 10-14-2023 THERAPY NT Normal [facility] CASE MANAGEMon 10-13-2023 CASE MANAGEM Normal [facility] NUTRITIONon 10-13-2023 NUTRITION Normal [facility] THERAPY NTon 10-13-2023 THERAPY NT Normal [facility] THERAPY NT Normal [facility] CNPNon 10-12-2023 CNPN Telephone (HCSIND) -- JOSÉ MANUEL ASHTON ([id number]) 1960 M T Date Time Provider Department 10/12/23 SAVANNA MG HCSIND During your visit today, we recorded the following information about you: Savanna Mg LPN 10/12/2023 11:04 AM Signed Called and spoke with Shelia in providers office, she confirmed will follow for services. Savanna Mg LPN Allergies As of Date: 10/12/2023 Noted Allergy Reaction PENICILLINS 07/24/2020 16 - Unknown Comments: Pt states he thinks he had a reaction as a child Date Reviewed: 10/12/2023 Reviewed by: Sabrina Portillo LPN - Fully Assessed Reason for Visit: Home Care [4073] Cmt: to follow Prescriptions as of 10/12/2023 - oxyCODONE IR (ROXICODONE) 10 mg tab Take 10 mg by mouth every 4 hours as needed for pain. - semaglutide (OZEMPIC) 0.25 mg or 0.5 mg(2 mg/1.5 mL) pen Inject 0.5 mg subcutaneously one time a week. - insulin lispro (HUMALOG KWIKPEN) 100 unit/mL Inject 8 Units subcutaneously three times a day before meals. - hydrALAZINE (APRESOLINE) 25 mg tablet Take 1 tablet by mouth two times a day. - insulin glargine (BASAGLAR KWIKPEN U-100 INSULIN) 100 unit/mL (3 mL) Inject 24 Units subcutaneously daily at bedtime. - pen needle,diabetic dual safty (BD AUTOSHIELD DUO PEN NEEDLE) 30 gauge x 3/16" ndle 1 Applicator four times daily. - amLODIPine (NORVASC) 5 mg tablet Take 1 tablet by mouth two times a day. - senna (SENOKOT) 8.6 mg tab Take 1 tablet by mouth once daily. - carvedilol (COREG) 25 mg tablet Take 1 tablet by mouth two times a day with meals. - cyclobenzaprine (FLEXERIL) 10 mg tablet Take 1 tablet by mouth three times a day as needed for muscle spasm. - pantoprazole DR (PROTONIX) 40 mg tablet Take 1 tablet by mouth DAILY (6 AM). Facility-Administered Medications as of 10/12/2023 - oxyCODONE IR 10 mg tab(s) (ROXICODONE) - cephALEXin 500 mg cap(s) (KEFLEX) - DULoxetine 30 mg cap(s) (CYMBALTA) - polyethylene glycol 3350 17 g packet - diazePAM 2 mg tab(s) (VALIUM) - acetaminophen 1,000 mg tab(s) (TYLENOL) - cyclobenzaprine 10 mg tab(s) (FLEXERIL) - lidocaine 4 % 2 Patch (SALONPAS) - lidocaine patch - REMOVE - lidocaine - VERIFY PATCH - doxazosin 1 mg tab(s) (CARDURA) - carvedilol 25 mg tab(s) (COREG) - hydrALAZINE 25 mg tab(s) (APRESOLINE) - amLODIPine 5 mg tab(s) (NORVASC) - insulin glargine 24 Units pen (long acting) - insulin lispro 8 Units injection (rapid acting) (ADMElog) - senna 8.6 mg tab(s) (SENOKOT) - pantoprazole DR 40 mg tab(s) (PROTONIX) - aluminum-magnesium hydroxide-simethicone 200-200-20 mg/5 mL 30 mL - magnesium hydroxide 400 mg/5 mL 30 mL (MOM) - dextrose 40 % 15 g - glucagon 1 mg injection - dextrose 10% iv bolus Meds Comments as of 04/19/2021: SEE EMAR FOR MEDICATIONS TAKEN LAST 04/19/21 07/31/20 The medications are managed by this patient by: PATIENT Miranda Lewis, OA Problem List As Of Date 10/12/2023 Noted Resolved Vitamin D deficiency [E55.9] 02/20/2020 Marijuana use [F12.90] 02/20/2020 Microalbuminuria [R80.9] 02/20/2020 Obesity, Class II, BMI 35-39.9 [E66.9] 02/20/2020 05/25/2023 Chronic bilateral low back pain [M54.50, G89.29]02/20/2020 Weakness [R53.1] 05/05/2020 06/15/2020 Decreased mobility and endurance [Z74.09] 05/05/2020 06/15/2020 Severe episode of recurrent major depressive di*05/28/2020 05/25/2023 Malignant neoplasm of rectum (HCC) [C20] 08/04/2020 05/25/2023 Conduct disorder [F91.9] 09/07/2020 05/25/2023 Spinal stenosis of lumbar region with neurogeni*11/06/2020 Mixed hyperlipidemia [E78.2] 11/06/2020 HTN (hypertension) [I10] 11/06/2020 Generalized anxiety disorder [F41.1] 11/19/2020 Peripheral sensory-motor axonal polyneuropathy *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 Lumbar radiculopathy [M54.16] 12/09/2020 Dizziness [R42] 02/20/2021 05/25/2023 Microscopic hematuria [R31.29] 03/08/2021 01/17/2022 H/O medication noncompliance [Z91.148] 03/08/2021 05/25/2023 DKA (diabetic ketoacidosis) (HCC) [E11.10] 04/13/2021 05/25/2023 Severe protein-calorie malnutrition (HCC) [E43] 04/16/2021 05/25/2023 Benign prostatic hyperplasia [N40.0] 07/05/2021 05/25/2023 Glaucoma suspect of both eyes [H40.003] 11/05/2021 05/25/2023 Nuclear senile cataract of both eyes [H25.13] 11/05/2021 09/09/2022 Diabetic retinopathy (HCC) [E11.319] 11/05/2021 Stage 3b chronic kidney disease (HCC) [N18.32] 01/17/2022 Hyperglycemia [R73.9] 01/18/2022 05/25/2023 Alcohol dependence (HCC) [F10.20] 01/18/2022 Abdominal discomfort [R10.9] 01/18/2022 01/19/2022 Constipation [K59.00] 01/18/2022 05/25/2023 MDD (major depressive disorder), severe (HCC) [*01/20/2022 Mood disorder (HCC) [F39] 03/01/2022 05/25/2023 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 Normal [facility] Telephone (HCSIND) -- JOSÉ MANUEL ASHTON ([id number]) 1960 M T Date Time Provider Department 10/12/23 SAVANNA MG During your visit today, we recorded the following information about you: Savanna Mg LPN 10/12/2023 10:59 AM Signed Called pt and sister Janell, left messages to call office, wanted to confirm home care services. GREG Terry Rebecca 10/13/2023 9:23 AM Signed Date/Time: 10/13/2023 9:21 AM Spoke with Janell Ashton @ phone #: [phone] - Preferred # for contact: [phone] Have you received help from a home care company in the last 60 days? NO Are you agreeable to [facility] services? YES What address will we be seeing you at? [address] [place] [address] Do you have any upcoming appointments or things we need to schedule around? 10/20/23, 10/25/23 Do you have a teachable CG or can you manage your care independently? Independently FLU SHOT NOT SURE WHERE Allergies As of Date: 10/12/2023 Noted Allergy Reaction PENICILLINS 07/24/2020 16 - Unknown Comments: Pt states he thinks he had a reaction as a child Date Reviewed: 10/12/2023 Reviewed by: Lupe Gonsales, RN - Fully Assessed Reason for Visit: Home Care [4073] Cmt: Confirmation Call Prescriptions as of 10/13/2023 - oxyCODONE IR (ROXICODONE) 10 mg tab Take 10 mg by mouth every 4 hours as needed for pain. - semaglutide (OZEMPIC) 0.25 mg or 0.5 mg(2 mg/1.5 mL) pen Inject 0.5 mg subcutaneously one time a week. - insulin lispro (HUMALOG KWIKPEN) 100 unit/mL Inject 8 Units subcutaneously three times a day before meals. - hydrALAZINE (APRESOLINE) 25 mg tablet Take 1 tablet by mouth two times a day. - insulin glargine (BASAGLAR KWIKPEN U-100 INSULIN) 100 unit/mL (3 mL) Inject 24 Units subcutaneously daily at bedtime. - pen needle,diabetic dual safty (BD AUTOSHIELD DUO PEN NEEDLE) 30 gauge x 3/16" ndle 1 Applicator four times daily. - amLODIPine (NORVASC) 5 mg tablet Take 1 tablet by mouth two times a day. - senna (SENOKOT) 8.6 mg tab Take 1 tablet by mouth once daily. - carvedilol (COREG) 25 mg tablet Take 1 tablet by mouth two times a day with meals. - cyclobenzaprine (FLEXERIL) 10 mg tablet Take 1 tablet by mouth three times a day as needed for muscle spasm. - pantoprazole DR (PROTONIX) 40 mg tablet Take 1 tablet by mouth DAILY (6 AM). Facility-Administered Medications as of 10/13/2023 - oxyCODONE IR 10 mg tab(s) (ROXICODONE) - cephALEXin 500 mg cap(s) (KEFLEX) - DULoxetine 30 mg cap(s) (CYMBALTA) - polyethylene glycol 3350 17 g packet - diazePAM 2 mg tab(s) (VALIUM) - acetaminophen 1,000 mg tab(s) (TYLENOL) - cyclobenzaprine 10 mg tab(s) (FLEXERIL) - lidocaine 4 % 2 Patch (SALONPAS) - lidocaine patch - REMOVE - lidocaine - VERIFY PATCH - doxazosin 1 mg tab(s) (CARDURA) - carvedilol 25 mg tab(s) (COREG) - hydrALAZINE 25 mg tab(s) (APRESOLINE) - amLODIPine 5 mg tab(s) (NORVASC) - insulin glargine 24 Units pen (long acting) - insulin lispro 8 Units injection (rapid acting) (ADMElog) - senna 8.6 mg tab(s) (SENOKOT) - pantoprazole DR 40 mg tab(s) (PROTONIX) - aluminum-magnesium hydroxide-simethicone 200-200-20 mg/5 mL 30 mL - magnesium hydroxide 400 mg/5 mL 30 mL (MOM) - dextrose 40 % 15 g - glucagon 1 mg injection - dextrose 10% iv bolus Meds Comments as of 04/19/2021: SEE EMAR FOR MEDICATIONS TAKEN LAST 04/19/21 07/31/20 The medications are managed by this patient by: PATIENT ZIGGY Wong Problem List As Of Date 10/12/2023 Noted Resolved Vitamin D deficiency [E55.9] 02/20/2020 Marijuana use [F12.90] 02/20/2020 Microalbuminuria [R80.9] 02/20/2020 Obesity, Class II, BMI 35-39.9 [E66.9] 02/20/2020 05/25/2023 Chronic bilateral low back pain [M54.50, G89.29]02/20/2020 Weakness [R53.1] 05/05/2020 06/15/2020 Decreased mobility and endurance [Z74.09] 05/05/2020 06/15/2020 Severe episode of recurrent major depressive di*05/28/2020 05/25/2023 Malignant neoplasm of rectum (HCC) [C20] 08/04/2020 05/25/2023 Conduct disorder [F91.9] 09/07/2020 05/25/2023 Spinal stenosis of lumbar region with neurogeni*11/06/2020 Mixed hyperlipidemia [E78.2] 11/06/2020 HTN (hypertension) [I10] 11/06/2020 Generalized anxiety disorder [F41.1] 11/19/2020 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 Normal [facility] WORKon 10-12-2023 SOCIAL WORK Normal [facility] THERAPY NTon 10-12-2023 THERAPY NT Normal [facility] THERAPY NT Normal [facility] NURSING PROGon 10-11-2023 NURSING PROG Normal [facility] THERAPY NTon 10-11-2023 THERAPY NT Normal [facility] THERAPY NT Normal [facility] CASE MGT INIT ASSESon 2023 CASE MGT INIT ASSES Normal [facility] NURSING PROGon 10-10-2023 NURSING PROG Normal [facility] NURSING PROG Normal [facility] SOCIAL WORKon 10-10-2023 SOCIAL WORK Normal [facility] THERAPY NTon 10-10-2023 THERAPY NT Normal [facility] THERAPY NT Normal [facility] Basic metabolic 2000 panelon 10-09-2023 Anion gap [Moles/Vol] 12 mmol/L Normal 8-15 [facility] Comment on above: Order Comment: Speci men Type: BLOOD SPECIMENOrdering Facility: [facility] Address: [address] [place] [address] Performed By: #### 2 4321-2, 2276-4, 25636-7, 2131-12, 2283-11 ####[facility] LABORATORYCLIA [id number] [place] [address] [place] Calcium [Mass/Vol] 8.7 mg/dL Normal 8.5-10.2 [facility] Comment on above: Order Comment: Speci men Type: BLOOD SPECIMENOrdering Facility: [facility] Address: [address] [place] [address] Performed By: #### 2 4321-2, 2276-4, 47964-4, 2131-12, 2283-11 ####[facility] LABORATORYCLIA [id number] [place] [address] [place] Chloride [Moles/Vol] 103 mmol/L Normal 98-107 [facility] Comment on above: Order Comment: Speci men Type: BLOOD SPECIMENOrdering Facility: [facility] Address: [address] [place] [address] Performed By: #### 2 4321-2, 6-4, 15761-3, 9, 8 ####[facility] LABORATORYCLIA [id number] [address] [place] CO2 [Moles/Vol] 26 mmol/L Normal 22-30 [facility] Comment on above: Order Comment: Speci men Type: BLOOD SPECIMENOrdering Facility: [facility] Address: [address] [place] [address] Performed By: #### 2 4321-2, 6-4, 30695-7, 9, 2283-11 ####[facility] LABORATORYCLIA [id number] [address] [place] Creatinine [Mass/Vol] 2.35 mg/dL High 0.73-1.22 [facility] Comment on above: Order Comment: Speci men Type: BLOOD SPECIMENOrdering Facility: [facility] Address: [address] [place] [address] Performed By: #### 2 4321-2, 6-4, 25877-8, 9, 2283-11 ####[facility] LABORATORYCLIA [id number] [address] OF [facility] Creatinine and Glomerular filtration rate.predicted panel (S/P/Bld) 30 mL/min/1.73m??? Low >=60 [facility] Comment on above: Order Comment: [facility] Type: BLOOD SPECIMENOrdering Facility: [facility] Address: [address] [place] [address] Result Comment: Breanne mated Glomerular Filtration Rate (eGFR) is calculated using the 2020 CKD-EPI creatinine equation. This equation utilizes serum creatinine, sex, and age as parameters. The creatinine assay has traceable calibration to isotope dilution-mass spectrometry. Refer to KDIGO guidelines for clinical interpretation. In patients with unstable renal function, e.g. those with acute kidney injury, the eGFR may not accurately reflect actual GFR. Performed By: #### 2 4321-2, 6-4, 84760-8, 9, 2283-11 ####[facility] LABORATORYCLIA [id number] [place] [address] [place] Glucose [Mass/Vol] 149 mg/dL High 74-99 [facility] Comment on above: Order Comment: Speci men Type: BLOOD SPECIMENOrdering Facility: [facility] Address: [address] [place], [place] [address] Result Comment: The [place] Diabetes Association (ADA) provides guidance for cutoff values for fasting glucose and random glucose. The ADA defines fasting as no caloric intake for at least 8 hours. Fasting plasma glucose results between 100 to 125 mg/dL indicate increased risk for diabetes (prediabetes).Fasting plasma glucose results greater than or equal to 126 mg/dL meet the criteria for diagnosis of diabetes. In the absence of unequivocal hyperglycemia, results should be confirmed by repeat testing. In a patient with classic symptoms of hyperglycemia or hyperglycemic crisis, random plasma glucose results greater than or equal to 200 mg/dL meet the criteria for diagnosis of diabetes.Reference: Standards of Medical Care in Diabetes 2016, [place] [employer] Association. Diabetes Care. 2016.39(Suppl 1). Performed By: #### 2 4321-2, 2276-4, 96775-9, 2131-9, 2283-8 ####[facility] LABORATORYCLIA [id number] [place] [address] [place] Potassium [Moles/Vol] 5.4 mmol/L High 3.7-5.1 [facility] Comment on above: Order Comment: Speci men Type: BLOOD SPECIMENOrdering Facility: [facility] Address: [address] [place] [address] Performed By: #### 2 4321-2, 2276-4, 24504-8, 2131-9, 2283-8 ####[facility] LABORATORYCLIA [id number] [place] [id number] [place] Sodium [Moles/Vol] 141 mmol/L Normal 136-144 [facility] Comment on above: Order Comment: Speci men Type: BLOOD SPECIMENOrdering Facility: [facility] Address: [address] [place] [address] Performed By: #### 2 4321-2, 2276-4, 97385-0, 2131-12, 2283-11 ####[facility] LABORATORYCLIA [id number] [place] [address] [place] Urea nitrogen [Mass/Vol] 42 mg/dL High 9-24 [facility] Comment on above: Order Comment: Speci men Type: BLOOD SPECIMENOrdering Facility: [facility] Address: [address] [place] [address] Performed By: #### 2 4321-2, 2275-4, 26942-5, 2131-12, 2283-11 ####[facility] LABORATORYCLIA [id number] [place] [address] [facility] CASE MANAGEMon 10-09-2023 CASE MANAGEM Normal [facility] CBC panel Auto (Bld)on 10-08 Erythrocyte distribution width (RBC) [Ratio] 13.5 % Normal 11.5-15.0 [facility] Comment on above: Order Comment: Speci men Type: BLOOD SPECIMENOrdering Facility: [facility] Address: [address] [place] [address] Performed By: #### 5 8410-2 ####[facility] Analyze ReI LABCLIA [id number] [place] [address] [place] Hematocrit (Bld) [Volume fraction] 30.2 % Low 39.0-51.0 [facility] Comment on above: Order Comment: Speci men Type: BLOOD SPECIMENOrdering Facility: [facility] Address: [address] [place] [address] Performed By: #### 5 8410-2 ####[facility] LABCLIA [id number] [place] [address] [place] Hemoglobin (Bld) [Mass/Vol] 9.3 g/dL Low 13.0-17.0 [facility] Comment on above: Order Comment: Speci men Type: BLOOD SPECIMENOrdering Facility: [facility] Address: [address] [place] [address] Performed By: #### 5 8410-2 ####[facility] LABCLIA [id number] [place] [address] [place] [facility] MCH (RBC) [Entitic mass] 27.4 pg Normal 26.0-34.0 [facility] Comment on above: Order Comment: Speci men Type: BLOOD SPECIMENOrdering Facility: [facility] Address: [address] [place] [address] Performed By: #### 5 8410-2 ####[facility] LABCLIA [id number] [place] [address] [facility] OF [facility] MCHC (RBC) [Mass/Vol] 30.8 g/dL Normal 30.5-36.0 [facility] Comment on above: Order Comment: Speci men Type: BLOOD SPECIMENOrdering Facility: [facility] Address: [address] [place] [address] Performed By: #### 5 8410-2 ####[facility] LABCLIA [id number] [place] [address] [facility] MCV (RBC) [Entitic vol] 89.1 fL Normal 80.0-100.0 [facility] Comment on above: Order Comment: Speci men Type: BLOOD SPECIMENOrdering Facility: [facility] Address: [address] [place] [address] Performed By: #### 5 8410-2 ####[facility] LABIA [id number] [place] [address] [facility] Platelet mean volume (Bld) [Entitic vol] 8.9 fL Low 9.0-12.7 [facility] Comment on above: Order Comment: Speci men Type: BLOOD SPECIMENOrdering Facility: [facility] Address: [address] [place] [address] Performed By: #### 5 8410-2 ####[facility] LABCLIA [id number] [place] [address] [facility] [place] Platelets (Bld) [#/Vol] 315 10*3/uL Normal 150-400 [facility] Comment on above: Order Comment: Speci men Type: BLOOD SPECIMENOrdering Facility: [facility] Address: [address] [place] [address] Performed By: #### 5 8410-2 ####[facility] LABCLIA [id number] [place] [address] [place] [facility] RBC (Bld) [#/Vol] 3.39 10*6/uL Low 4.20-6.00 [facility] Comment on above: Order Comment: Speci men Type: BLOOD SPECIMENOrdering Facility: [facility] Address: [address] [place] [address] Performed By: #### 5 8410-2 ####[facility] LABCLIA [id number] [place] [id number] [facility] WBC (Bld) [#/Vol] 7.71 10*3/uL Normal 3.70-11.00 [facility] Comment on above: Order Comment: Speci men Type: BLOOD SPECIMENOrdering Facility: [facility] Address: [address] [place] [address] Performed By: #### 5 8410-2 ####[facility] LABCLIA [id number] [place] [id number] [place] Ferritin SerPl-mCncon 2023 Ferritin [Mass/Vol] 712.0 ng/mL High 30.3-565.7 [facility] Comment on above: Order Comment: Speci men Type: BLOOD SPECIMENOrdering Facility: [facility] Address: [address] [place] [address] Performed By: #### 2 4321-2, 2276-4, 04041-8, 2132-9, 2284-8 ####[facility] LABORATORYCLIA [id number] [place] [address] [place] Folate SerPl-mCncon 10-09-19 24 Folate [Mass/Vol] 7.0 ng/mL Normal >4.7 [facility] Comment on above: Order Comment: Speci men Type: BLOOD SPECIMENOrdering Facility: [facility] Address: [address] [place], [place] [address] Performed By: #### 2 4321-2, 6-4, 10544-3, 2131-12, 2283-11 ####[facility] LABORATORYCLIA [id number] [place] [address] [place] Iron and Iron binding capaci ty panelon 10-09-2023 Iron [Mass/Vol] 23 ug/dL Low 41-186 [facility] Comment on above: Order Comment: Speci men Type: BLOOD SPECIMENOrdering Facility: [facility] Address: [address] [place] [address] Performed By: #### 2 4321-2, 6-4, 74844-8, 2131-12, 2283-11 ####[facility] LABORATORYCLIA [id number] [place] [facility] Iron binding capacity [Mass/Vol] 165 ug/dL Low 232-386 [facility] Comment on above: Order Comment: Speci men Type: BLOOD SPECIMENOrdering Facility: [facility] Address: [address] [place] [address] Performed By: #### 2 4321-2, 6-4, 59367-6, 2131-12, 2283-11 ####[facility] LABORATORYCLIA [id number] [address] [place] [facility] Iron saturation [Mass fraction] 13.9 % Low 15.0-57.0 [facility] Comment on above: Order Comment: Speci men Type: BLOOD SPECIMENOrdering Facility: [facility] Address: [address] [place] [address] Performed By: #### 2 4321-2, 6-4, 47716-6, 2131-12, 2283-11 ####[facility] LABORATORYCLIA [id number] [place] [address] [place] SOCIAL WORKon 10-09-2023 SOCIAL WORK Normal [facility] THERAPY NTon 10-09-2023 THERAPY NT Normal [facility] THERAPY NT Normal [facility] THERAPY NT Normal [facility] Vit B12 SerPl-mCncon 024 Cobalamin (Vitamin B12) [Mass/Vol] 574 pg/mL Normal 232-1245 [facility] Comment on above: Order Comment: Speci men Type: BLOOD SPECIMENOrdering Facility: [facility] Address: [address] [place] [address] Performed By: #### 2 4321-2, 2276-4, 25889-9, 2132-9, 2284-8 ####[facility] LABORATORYCLIA [id number] [place] [address] [place] THERAPY NTon 10-08-2023 THERAPY NT Normal [facility] THERAPY NTon 10-07-2023 THERAPY NT Normal [facility] Basic metabolic 2000 panelon 10-06-2023 Anion gap [Moles/Vol] 10 mmol/L Normal 8-15 [facility] Comment on above: Order Comment: Speci men Type: BLOOD SPECIMENOrdering Facility: [facility] Address: [address] [place], [place] [address] Performed By: #### 2 4321-2 ####[facility] [place] LABCLIA [id number] [place] [address] [place] Calcium [Mass/Vol] 8.9 mg/dL Normal 8.5-10.2 [facility] Comment on above: Order Comment: Speci men Type: BLOOD SPECIMENOrdering Facility: [facility] Address: [address] [place] [address] Performed By: #### 2 4321-2 ####[facility] [place] LABCLIA [id number] [place] [address] [place] Chloride [Moles/Vol] 104 mmol/L Normal 98-107 [facility] Comment on above: Order Comment: Speci men Type: BLOOD SPECIMENOrdering Facility: [facility] Address: [address] [place] [address] Performed By: #### 2 4321-2 ####[facility] [place] LABCLIA [id number] [place] [address] [place] CO2 [Moles/Vol] 27 mmol/L Normal 22-30 [facility] Comment on above: Order Comment: Speci men Type: BLOOD SPECIMENOrdering Facility: [facility] Address: [address] [place] [address] Performed By: #### 2 4321-2 ####[facility] [place] LABCLIA [id number] [place] [address] [place] Creatinine [Mass/Vol] 2.00 mg/dL High 0.73-1.22 [facility] Comment on above: Order Comment: Speci men Type: BLOOD SPECIMENOrdering Facility: [facility] Address: [address] [place] [address] Performed By: #### 2 4321-2 ####[facility] Analyze ReI LABCLIA [id number] [place] [address] [facility] Creatinine and Glomerular filtration rate.predicted panel (S/P/Bld) 37 mL/min/1.73m??? Low >=60 [facility] Comment on above: Order Comment: Speci men Type: BLOOD SPECIMENOrdering Facility: [facility] Address: [address] [place] [address] Result Comment: Breanne mated Glomerular Filtration Rate (eGFR) is calculated using the 2020 CKD-EPI creatinine equation. This equation utilizes serum creatinine, sex, and age as parameters. The creatinine assay has traceable calibration to isotope dilution-mass spectrometry. Refer to KDIGO guidelines for clinical interpretation. In patients with unstable renal function, e.g. those with acute kidney injury, the eGFR may not accurately reflect actual GFR. Performed By: #### 2 4321-2 ####[facility] Analyze [facility] LABCLIA [id number] [place] [address] [place] Glucose [Mass/Vol] 180 mg/dL High 74-99 [facility] Comment on above: Order Comment: Speci men Type: BLOOD SPECIMENOrdering Facility: [facility] Address: [address] [place] [address] Result Comment: The [place] Diabetes Association (ADA) provides guidance for cutoff values for fasting glucose and random glucose. The ADA defines fasting as no caloric intake for at least 8 hours. Fasting plasma glucose results between 100 to 125 mg/dL indicate increased risk for diabetes (prediabetes).Fasting plasma glucose results greater than or equal to 126 mg/dL meet the criteria for diagnosis of diabetes. In the absence of unequivocal hyperglycemia, results should be confirmed by repeat testing. In a patient with classic symptoms of hyperglycemia or hyperglycemic crisis, random plasma glucose results greater than or equal to 200 mg/dL meet the criteria for diagnosis of diabetes.Reference: Standards of Medical Care in Diabetes 2016, [place] Diabetes Association. Diabetes Care. 2016.39(Suppl 1). Performed By: #### 2 4321-2 ####[facility] Analyze Re[facility] LABCLIA [id number] [place] [address] [place] Potassium [Moles/Vol] 4.5 mmol/L Normal 3.7-5.1 [facility] Comment on above: Order Comment: Speci men Type: BLOOD SPECIMENOrdering Facility: [facility] Address: [address] [place] [address] Performed By: #### 2 4321-2 ####[facility] Analy[facility] LABCLIA [id number] [place] [address] [place] Sodium [Moles/Vol] 141 mmol/L Normal 136-144 [facility] Comment on above: Order Comment: Luz vaughan Type: BLOOD SPECIMENOrdering Facility: [facility] Address: [address] [place] [address] Performed By: #### 2 4321-2 ####[facility] Analyze Re[facility] LABCLIA [id number] [place] [address] [place] Urea nitrogen [Mass/Vol] 32 mg/dL High 9-24 [facility] Comment on above: Order Comment: Luz men Type: BLOOD SPECIMENOrdering Facility: [facility] Address: [address] [place] [address] Performed By: #### 2 4321-2 ####[facility] Analyze Re[facility] LABCLIA [id number] [place] [address] [place] CBC panel Auto (Bld)on 10-05 Erythrocyte distribution width (RBC) [Ratio] 13.5 % Normal 11.5-15.0 [facility] Comment on above: Order Comment: Speci men Type: BLOOD SPECIMENOrdering Facility: [facility] Address: [address] [place] [address] Performed By: #### 5 8410-2 ####[facility] LABCLIA [id number] [place] [address] [facility] Hematocrit (Bld) [Volume fraction] 31.5 % Low 39.0-51.0 [facility] Comment on above: Order Comment: Speci men Type: BLOOD SPECIMENOrdering Facility: [facility] Address: [address] [place] [address] Performed By: #### 5 8410-2 ####[facility] LABCLIA [id number] [place] [address] [facility] Hemoglobin (Bld) [Mass/Vol] 9.9 g/dL Low 13.0-17.0 [facility] Comment on above: Order Comment: Speci men Type: BLOOD SPECIMENOrdering Facility: [facility] Address: [address] [place] [address] Performed By: #### 5 8410-2 ####[facility] LABCLIA [id number] [place] [address] [facility] MCH (RBC) [Entitic mass] 27.3 pg Normal 26.0-34.0 [facility] Comment on above: Order Comment: Speci men Type: BLOOD SPECIMENOrdering Facility: [facility] Address: [address] [place] [address] Performed By: #### 5 8410-2 ####[facility] LABCLIA [id number] [place] [address] [facility] MCHC (RBC) [Mass/Vol] 31.4 g/dL Normal 30.5-36.0 [facility] Comment on above: Order Comment: Speci men Type: BLOOD SPECIMENOrdering Facility: [facility] Address: [address] [place] [address] Performed By: #### 5 8410-2 ####[facility] [place] LABCLIA [id number] [place] [address] [place] MCV (RBC) [Entitic vol] 86.8 fL Normal 80.0-100.0 [facility] Comment on above: Order Comment: Speci men Type: BLOOD SPECIMENOrdering Facility: [facility] Address: [address] [place] [address] Performed By: #### 5 8410-2 ####[facility] [place] LABCLIA [id number] [place] [facility] [address] [place] Platelet mean volume (Bld) [Entitic vol] 8.4 fL Low 9.0-12.7 [facility] Comment on above: Order Comment: Speci men Type: BLOOD SPECIMENOrdering Facility: [facility] Address: [address] [place] [address] Performed By: #### 5 8410-2 ####[facility] [place] LABCLIA [id number] [facility] [place] [address] [place] Platelets (Bld) [#/Vol] 345 10*3/uL Normal 150-400 [facility] Comment on above: Order Comment: Speci men Type: BLOOD SPECIMENOrdering Facility: [facility] Address: [address] [place] [address] Performed By: #### 5 8410-2 ####[facility] [place] LABCLIA [id number] [place] [address] [place] RBC (Bld) [#/Vol] 3.63 10*6/uL Low 4.20-6.00 [facility] Comment on above: Order Comment: Speci men Type: BLOOD SPECIMENOrdering Facility: [facility] Address: [address] [place] [address] Performed By: #### 5 8410-2 ####[facility] [place] LABCLIA [id number] [place] [address] [place] WBC (Bld) [#/Vol] 9.66 10*3/uL Normal 3.70-11.00 [facility] Comment on above: Order Comment: Luz vaughan Type: BLOOD SPECIMENOrdering Facility: [facility] Address: [address] [place] [address] Performed By: #### 5 8410-2 ####[facility] LABCLIA [id number] [place] [address] [place] HbA1c (Bld)on 10-06-2023 Average glucose Estimated from glycated hemoglobin (Bld) [Mass/Vol] 126 mg/dL Normal [facility] Comment on above: Order Comment: Brooksi men Type: BLOOD SPECIMENOrdering Facility: [facility] Address: [address] [place] [address] Result Comment: eAG: (Estimated average glucose) is a calculated value from HgbA1c and is off premise service representative of the average blood glucose level in the last 2-3 month period. Performed By: #### 5 5454-3 ####[facility] LABCLIA [id number] [place] [address] [place] HbA1c (Bld) [Mass fraction] 6.0 % High 4.3-5.6 [facility] Comment on above: Order Comment: Luz vaughan Type: BLOOD SPECIMENOrdering Facility: [facility] Address: [address] [place] [address] Result Comment: Amer [place] Diabetes Association guidelines indicate that patients with HgbA1c in the range 5.7-6.4% are at increased risk for development of diabetes, and intervention by lifestyle modification may be beneficial. HgbA1c greater or equal to 6.5% is considered diagnostic of diabetes. Performed By: #### 5 5454-3 ####[facility] LABCLIA [id number] [place] [id number] [place] NUTRITIONon 10-06-2023 NUTRITION Normal [facility] THERAPY NTon 10-06-2023 THERAPY NT Normal [facility] THERAPY NT Normal [facility] HISTORY PHYSICALon HISTORY PHYSICAL Normal [facility] THERAPY NTon 10-04-2023 THERAPY NT Normal [facility] 36on 08-31-2023 36 Name of caller: Janet rtoncoso Contact phone number: [phone] Relationship to Patient: DIEGO Provider: Dr Scott Practice: [facility] Chief Complaint/Reason for Call: Tati states rx for Humalog sent 08.30.23 as cartridge which needs add'l parts to use. Ins wants this changed to pen, not the cartridge. Please advise Best time of day caller can be reached: Any Patient advised that office/PCP has 24-48 business hours to return their call: Yes [facility] [facility] CNPN Telephone (ENDMED) -- JOSÉ MANUEL ASHTON ([id number]) 1960 M [facility] Date Time Provider Department 07/28/23 MÓNICA PETERSON During your visit today, we recorded the following information about you: Jen Pagan RN 07/28/2023 12:46 PM Signed Received a call from patients (Janell) she state's patient is scheduled for surgery at the [facility] on 08/08/23. They are requesting surgical clearance for diabetes from Dr Peterson. We have not received their fax as of yet. Recommended she have them re-fax the form. Also, apparently he had recent labs drawn with [facility] including an updated A1c, recommended she have them faxed to us for review. Last was in 05/2023 and it was 13.0. surgery is wanting an A1c <8.0 for surgery. Discussed that while the surgery is soon we aim for the safest outcome so if the A1c is not optimal we will need to have Dr. Peterson review the labs and decide next steps. Will await documents and lab results to proceed. Mónica Peterson MD 08/03/2023 12:22 PM Signed Thank you I unfortunately cannot do clearance without proper follow-ups. His glucose levels were very high based on the A1c when I saw him 3 months ago If this is an urgent/time sensitive surgery, they can go ahead and do it if the benefits outweigh the risks. If it is elective, then his blood sugars should ideally be controlled beforehand. We have not received anything from the anaesthesia/surgical team [facility] Maryuri Romero MA 08/03/2023 2:37 PM Signed Called patients home and left VM to call back office at [phone]. Please give message below. Maryuri Romero MA 08/04/2023 1:40 PM Signed Spoke with José Manuel Ashton's on August 04, 2023. Informed of results / instructions as stated above. Maryuri LAMBERT Romero states she will be taking José Manuel to a Machine [employer] Farm[employer] for his potassium but he will still have to follow up here for his A1c. CLOSED Allergies As of Date: 07/28/2023 Noted Allergy Reaction PENICILLINS 07/24/2020 16 - Unknown Comments: Pt states he thinks he had a reaction as a child Date Reviewed: 07/12/2023 Reviewed by: Julieta Odonnell MA - Fully Assessed Reason for Visit: Patient Update [1234] Prescriptions as of 08/04/2023 - alfuzosin SR (UROXATRAL) 10 mg 24 hr tablet Take 1 tablet by mouth daily at bedtime. - insulin lispro (HUMALOG KWIKPEN) 100 unit/mL Inject 8 Units subcutaneously three times a day before meals. - hydrALAZINE (APRESOLINE) 25 mg tablet Take 1 tablet by mouth two times a day. - furosemide (LASIX) 20 mg tablet Take 1 tablet by mouth daily after lunch. - insulin glargine (BASAGLAR KWIKPEN U-100 INSULIN) 100 unit/mL (3 mL) Inject 24 Units subcutaneously daily at bedtime. - pen needle,diabetic dual safty (BD AUTOSHIELD DUO PEN NEEDLE) 30 gauge x 3/16" ndle 1 Applicator four times daily. - amLODIPine (NORVASC) 5 mg tablet Take 1 tablet by mouth two times a day. - senna (SENOKOT) 8.6 mg tab Take 1 tablet by mouth once daily. - carvedilol (COREG) 25 mg tablet Take 1 tablet by mouth two times a day with meals. - cyclobenzaprine (FLEXERIL) 10 mg tablet Take 1 tablet by mouth three times a day as needed for muscle spasm. - pantoprazole DR (PROTONIX) 40 mg tablet Take 1 tablet by mouth DAILY (6 AM). Facility-Administered Medications as of 08/04/2023 - sodium chloride 0.9 % (flush) 10 mL (BD POSIFLUSH) Meds Comments as of 04/19/2021: SEE EMAR FOR MEDICATIONS TAKEN LAST 04/19/21 07/31/20 The medications are managed by this patient by: PATIENT Miranda Lewis, OA Problem List As Of Date 07/28/2023 Noted Resolved Vitamin D deficiency [E55.9] 02/20/2020 Marijuana use [F12.90] 02/20/2020 Microalbuminuria [R80.9] 02/20/2020 Obesity, Class II, BMI 35-39.9 [E66.9] 02/20/2020 05/25/2023 Chronic bilateral low back pain [M54.50, G89.29]02/20/2020 Weakness [R53.1] 05/05/2020 06/15/2020 Decreased mobility and endurance [Z74.09] 05/05/2020 06/15/2020 Severe episode of recurrent major depressive di*05/28/2020 05/25/2023 Malignant neoplasm of rectum (HCC) [C20] 08/04/2020 05/25/2023 Conduct disorder [F91.9] 09/07/2020 05/25/2023 Spinal stenosis of lumbar region with neurogeni*11/06/2020 Mixed hyperlipidemia [E78.2] 11/06/2020 HTN (hypertension) [I10] 11/06/2020 Generalized anxiety disorder [F41.1] 11/19/2020 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 Normal [facility] CNOVon 07-12-2023 CNOV Normal [facility] UA DIP, URINE (POC)on 2023 BILIRUBIN UA (POCT) Negative Negative [facility] CLARITY UA (POCT) Clear [facility] COLOR UA (POCT) Yellow [facility] GLUCOSE UA (POCT) Negative Negative mg/dL [facility] Hemoglobin Ql (U) Trace-intact Abnormal Negative Kt [facility] KETONE UA (POCT) Negative Negative mg/dL [facility] LEUKOCYTES UA (POCT) Negative [facility] NITRITE UA (POCT) Negative Negative [facility] PH UA (POCT) 5.5 4.5 - 8.0 [facility] Protein Ql (U) >=300 Abnormal Negative mg/dL [facility] SPECIFIC GRAVITY UA (POCT) >=1.030 1.005 - 1.030 [facility] UROBILINOGEN UA (POCT) 0.2 E.U./dL Emiliana l E.U./dL [facility] Basic metabolic 2000 panelon 06-13-2023 Anion gap [Moles/Vol] 10 mmol/L Normal 9-18 [facility] Comment on above: Order Comment: Speci men Type: BLOOD SPECIMENOrdering Facility: [facility] Address: [address] [place] [address] Performed By: #### 2 4321-2 ####[facility] [place] LABCLIA [id number] [place] [address] [place] Calcium [Mass/Vol] 8.6 mg/dL Normal 8.5-10.2 [facility] Comment on above: Order Comment: Speci men Type: BLOOD SPECIMENOrdering Facility: [facility] Address: [address] [place] [address] Performed By: #### 2 4321-2 ####[facility] [place] LABCLIA [id number] [facility] [place] [address] [place] Chloride [Moles/Vol] 105 mmol/L Normal 97-105 [facility] Comment on above: Order Comment: Speci men Type: BLOOD SPECIMENOrdering Facility: [facility] Address: [address] [place] [address] Performed By: #### 2 4321-2 ####[facility] [place] LABCLIA [id number] [facility] [place] [address] [place] CO2 [Moles/Vol] 26 mmol/L Normal 22-30 [facility] Comment on above: Order Comment: Speci men Type: BLOOD SPECIMENOrdering Facility: [facility] Address: [address] [place] [address] Performed By: #### 2 4321-2 ####[facility] [place] LABCLIA [id number] [place] [address] [place] Creatinine [Mass/Vol] 2.17 mg/dL High 0.73-1.22 [facility] Comment on above: Order Comment: Speci men Type: BLOOD SPECIMENOrdering Facility: [facility] Address: [address] [place] [address] Performed By: #### 2 4321-2 ####[facility] [place] LABCLIA [id number] [place] [address] [place] Creatinine and Glomerular filtration rate.predicted panel (S/P/Bld) 33 mL/min/1.73m??? Low >=60 [facility] Comment on above: Order Comment: Speci men Type: BLOOD SPECIMENOrdering Facility: [facility] Address: [address] [place] [address] Result Comment: Breanne mated Glomerular Filtration Rate (eGFR) is calculated using the 2020 CKD-EPI creatinine equation. This equation utilizes serum creatinine, sex, and age as parameters. The creatinine assay has traceable calibration to isotope dilution-mass spectrometry. Refer to KDIGO guidelines for clinical interpretation. In patients with unstable renal function, e.g. those with acute kidney injury, the eGFR may not accurately reflect actual GFR. Performed By: #### 2 4321-2 ####[facility] Analyze ReI LABCLIA [id number] [place] [address] [place] Glucose [Mass/Vol] 158 mg/dL High 74-99 [facility] Comment on above: Order Comment: Luz vaughan Type: BLOOD SPECIMENOrdering Facility: [facility] Address: [address] [place] [address] Result Comment: The [place] Diabetes [employer] (ADA) provides guidance for cutoff values for fasting glucose and random glucose. The ADA defines fasting as no caloric intake for at least 8 hours. Fasting plasma glucose results between 100 to 125 mg/dL indicate increased risk for diabetes (prediabetes).Fasting plasma glucose results greater than or equal to 126 mg/dL meet the criteria for diagnosis of diabetes. In the absence of unequivocal hyperglycemia, results should be confirmed by repeat testing. In a patient with classic symptoms of hyperglycemia or hyperglycemic crisis, random plasma glucose results greater than or equal to 200 mg/dL meet the criteria for diagnosis of diabetes.Reference: Standards of Medical Care in Diabetes 2016, [place] [employer]. Diabetes Care. 2016.39(Suppl 1). Performed By: #### 2 4321-2 ####[facility] Analyze ReI LABCLIA [id number] [place] [address] [place] Potassium [Moles/Vol] 4.7 mmol/L Normal 3.7-5.1 [facility] Comment on above: Order Comment: Luz vaughan Type: BLOOD SPECIMENOrdering Facility: [facility] Address: [address] [id number] Performed By: #### 2 4321-2 ####[facility] Analyze ReI LABCLIA [id number] [place] [address] [place] Sodium [Moles/Vol] 141 mmol/L Normal 136-144 [facility] Comment on above: Order Comment: Speci men Type: BLOOD SPECIMENOrdering Facility: [facility] Address: [address] [place], [place] [address] Performed By: #### 2 4321-2 ####[facility] [place] LABCLIA [id number] [place] [address] [place] Urea nitrogen [Mass/Vol] 46 mg/dL High 9-24 [facility] Comment on above: Order Comment: Speci men Type: BLOOD SPECIMENOrdering Facility: [facility] Address: [address] [place], [place] [address] Performed By: #### 2 4321-2 ####[facility] [place] LABCLIA [id number] [place] [address] [place] CNDSon 06-13-2023 CNDS Normal [facility] Albumin SerPl-mCncon 024 Albumin [Mass/Vol] 3.0 g/dL Low 3.9-4.9 [facility] Comment on above: Order Comment: Speci men Type: BLOOD SPECIMENOrdering Facility: [facility] Address: [address] [place] [address] Performed By: #### 1 751-7, 14664-4, 2777-1 ####[facility] [place] LABCLIA [id number] [place] [address] [place] Basic metabolic 2000 panelon 06-12-2023 Anion gap [Moles/Vol] 9 mmol/L Normal 9-18 [facility] Comment on above: Order Comment: Speci men Type: BLOOD SPECIMENOrdering Facility: [facility] Address: [address] [place] [address] Performed By: #### 1 751-7, 92428-6, 2777-1 ####[facility] [place] LABCLIA [id number] [place] [address] [place] Calcium [Mass/Vol] 8.9 mg/dL Normal 8.5-10.2 [facility] Comment on above: Order Comment: Speci men Type: BLOOD SPECIMENOrdering Facility: [facility] Address: [address] [place] [address] Performed By: #### 1 751-7, 85117-0, 2776- ####[facility] [place] LABCLIA [id number] [place] [address] [place] Chloride [Moles/Vol] 107 mmol/L High 97-105 [facility] Comment on above: Order Comment: Speci men Type: BLOOD SPECIMENOrdering Facility: [facility] Address: [address] [place] [address] Performed By: #### 1 751-7, 50596-7, 2776- ####[facility] LABCLIA [id number] [place] [address] [place] CO2 [Moles/Vol] 28 mmol/L Normal 22-30 [facility] Comment on above: Order Comment: Speci men Type: BLOOD SPECIMENOrdering Facility: [facility] Address: [address] [place] [address] Performed By: #### 1 751-7, 48008-9, 2776- ####[facility] LABCLIA [id number] [place] [address] [place] Creatinine [Mass/Vol] 2.34 mg/dL High 0.73-1.22 [facility] Comment on above: Order Comment: Speci men Type: BLOOD SPECIMENOrdering Facility: [facility] Address: [address] [place] [address] Performed By: #### 1 751-7, 69145-0, 2776- ####[facility] [place] LABCLIA [id number] [place] [address] [facility] Creatinine and Glomerular filtration rate.predicted panel (S/P/Bld) 30 mL/min/1.73m??? Low >=60 [facility] Comment on above: Order Comment: Speci men Type: BLOOD SPECIMENOrdering Facility: [facility] Address: [address] [place], [place] [address] Result Comment: Breanne mated Glomerular Filtration Rate (eGFR) is calculated using the 2020 CKD-EPI creatinine equation. This equation utilizes serum creatinine, sex, and age as parameters. The creatinine assay has traceable calibration to isotope dilution-mass spectrometry. Refer to KDIGO guidelines for clinical interpretation. In patients with unstable renal function, e.g. those with acute kidney injury, the eGFR may not accurately reflect actual GFR. Performed By: #### 1 751-7, 08173-0, 2776-04 ####[facility] LABIA [id number] [place] [address] [place] Glucose [Mass/Vol] 148 mg/dL High 74-99 [facility] Comment on above: Order Comment: Luz vaughan Type: BLOOD SPECIMENOrdering Facility: [facility] Address: [address] [place] [address] Result Comment: The [place] Diabetes Association (ADA) provides guidance for cutoff values for fasting glucose and random glucose. The ADA defines fasting as no caloric intake for at least 8 hours. Fasting plasma glucose results between 100 to 125 mg/dL indicate increased risk for diabetes (prediabetes).Fasting plasma glucose results greater than or equal to 126 mg/dL meet the criteria for diagnosis of diabetes. In the absence of unequivocal hyperglycemia, results should be confirmed by repeat testing. In a patient with classic symptoms of hyperglycemia or hyperglycemic crisis, random plasma glucose results greater than or equal to 200 mg/dL meet the criteria for diagnosis of diabetes.Reference: Standards of Medical Care in Diabetes 2016, [place] Diabetes [employer]. Diabetes Care. 2016.39(Suppl 1). Performed By: #### 1 751-7, 01189-5, 2776-04 ####[facility] LABIA [id number] [place] [address] [place] Potassium [Moles/Vol] 5.6 mmol/L High 3.7-5.1 [facility] Comment on above: Order Comment: Luz vaughan Type: BLOOD SPECIMENOrdering Facility: [facility] Address: [address] [place] [address] Performed By: #### 1 751-7, 17317-7, 2776- ####[facility] [place] LABCLIA [id number] [place] [address] [place] Sodium [Moles/Vol] 144 mmol/L Normal 136-144 [facility] Comment on above: Order Comment: Speci men Type: BLOOD SPECIMENOrdering Facility: [facility] Address: [address] [place] [address] Performed By: #### 1 751-7, 16473-8, 2777-1 ####[facility] [place] LABCLIA [id number] [place] [address] [place] Urea nitrogen [Mass/Vol] 47 mg/dL High 9-24 [facility] Comment on above: Order Comment: Speci men Type: BLOOD SPECIMENOrdering Facility: [facility] Address: [address] [place] [address] Performed By: #### 1 751-7, 62013-5, 2777-1 ####[facility] [place] LABCLIA [id number] [place] [address] [place] CASE MANAGEMon 06-12-2023 CASE MANAGEM Normal [facility] HISTORY PHYSICALon HISTORY PHYSICAL Normal [facility] POTASSIUM BLDon 06-12-2023 Potassium [Moles/Vol] 4.5 mmol/L Normal 3.7-5.[address] [facility] [facility] Comment on above: Order Comment: Speci men Type: BLOOD SPECIMENOrdering Facility: [facility] Address: [address] [place] [address] Performed By: #### K 1 ####[facility] [place] LABCLIA [id number] [place] [address] [place] Potassium [Moles/Vol] 5.8 mmol/L High 3.7-5.[address] [facility] Comment on above: Order Comment: Speci men Type: BLOOD SPECIMENOrdering Facility: [facility] Address: [address] [place] [address] Performed By: #### K 1 ####[facility] [place] LABCLIA [id number] [place] [address] [place] Phosphate SerPl-mCncon 06-11 Phosphate [Mass/Vol] 4.6 mg/dL Normal 2.7-4.8 [facility] Comment on above: Order Comment: Speci men Type: BLOOD SPECIMENOrdering Facility: [facility] Address: [address] [place] [address] Performed By: #### 1 751-7, 68325-2, 2777-1 ####[facility] [place] LABCLIA [id number] [place] [address] [facility] [place] THERAPY NTon 06-12-2023 THERAPY NT Normal [facility] THERAPY NT Normal [facility] Basic metabolic 2000 panelon 06-11-2023 Anion gap [Moles/Vol] 8 mmol/L Low 9-18 [facility] Comment on above: Order Comment: Speci men Type: BLOOD SPECIMENOrdering Facility: [facility] Address: [address] [place] [address] Performed By: #### 2 4321-2 ####[facility] LABCLIA [id number] [place] [address] [place] Calcium [Mass/Vol] 8.7 mg/dL Normal 8.5-10.2 [facility] Comment on above: Order Comment: Speci men Type: BLOOD SPECIMENOrdering Facility: [facility] Address: [address] [place] [address] Performed By: #### 2 4321-2 ####[facility] LABCLIA [id number] [place] [address] [place] Chloride [Moles/Vol] 106 mmol/L High 97-105 [facility] Comment on above: Order Comment: Speci men Type: BLOOD SPECIMENOrdering Facility: [facility] Address: [address] [place] [address] Performed By: #### 2 4321-2 ####[facility] [place] LABCLIA [id number] [place] [address] [place] CO2 [Moles/Vol] 28 mmol/L Normal 22-30 [facility] Comment on above: Order Comment: Speci men Type: BLOOD SPECIMENOrdering Facility: [facility] Address: [address] [place] [address] Performed By: #### 2 4321-2 ####[facility] LABCLIA [id number] [place] [address] [place] Creatinine [Mass/Vol] 2.24 mg/dL High 0.73-1.22 [facility] Comment on above: Order Comment: Speci men Type: BLOOD SPECIMENOrdering Facility: [facility] Address: [address] [place] [address] Performed By: #### 2 4321-2 ####[facility] LABCLIA [id number] [place] [address] [facility] Creatinine and Glomerular filtration rate.predicted panel (S/P/Bld) 32 mL/min/1.73m??? Low >=60 [facility] Comment on above: Order Comment: Speci men Type: BLOOD SPECIMENOrdering Facility: [facility] Address: [address] [place] [address] Result Comment: Breanne mated Glomerular Filtration Rate (eGFR) is calculated using the 2020 CKD-EPI creatinine equation. This equation utilizes serum creatinine, sex, and age as parameters. The creatinine assay has traceable calibration to isotope dilution-mass spectrometry. Refer to KDIGO guidelines for clinical interpretation. In patients with unstable renal function, e.g. those with acute kidney injury, the eGFR may not accurately reflect actual GFR. Performed By: #### 2 4321-2 ####[facility] LABCLIA [id number] [place] [address] [place] Glucose [Mass/Vol] 126 mg/dL High 74-99 [facility] Comment on above: Order Comment: Brooksi clement Type: BLOOD SPECIMENOrdering Facility: [facility] Address: [address] [place] [address] Result Comment: The [place] Diabetes Association (ADA) provides guidance for cutoff values for fasting glucose and random glucose. The ADA defines fasting as no caloric intake for at least 8 hours. Fasting plasma glucose results between 100 to 125 mg/dL indicate increased risk for diabetes (prediabetes).Fasting plasma glucose results greater than or equal to 126 mg/dL meet the criteria for diagnosis of diabetes. In the absence of unequivocal hyperglycemia, results should be confirmed by repeat testing. In a patient with classic symptoms of hyperglycemia or hyperglycemic crisis, random plasma glucose results greater than or equal to 200 mg/dL meet the criteria for diagnosis of diabetes.Reference: Standards of Medical Care in Diabetes 2016, [place] [employer]. Diabetes Care. 2016.39(Suppl 1). Performed By: #### 2 4321-2 ####[facility] [place] LABCLIA [id number] [place] [address] [place] Potassium [Moles/Vol] 4.9 mmol/L Normal 3.7-5.1 [facility] Comment on above: Order Comment: Luz vaughan Type: BLOOD SPECIMENOrdering Facility: [facility] Address: [address] [place] [address] Performed By: #### 2 4321-2 ####[facility] [place] LABCLIA [id number] [place] [address] [place] Sodium [Moles/Vol] 142 mmol/L Normal 136-144 [facility] Comment on above: Order Comment: Luz vaughan Type: BLOOD SPECIMENOrdering Facility: [facility] Address: [address] [place] [address] Performed By: #### 2 4321-2 ####[facility] [place] LABCLIA [id number] [place] [address] [place] Urea nitrogen [Mass/Vol] 45 mg/dL High 9-24 [facility] Comment on above: Order Comment: Luz vaughan Type: BLOOD SPECIMENOrdering Facility: [facility] Address: [facility] [place] [address] Performed By: #### 2 4321-2 ####[facility] [place] LABCLIA [id number] [place] [address] [place] CNDSon 06-11-2023 CNDS Normal [facility] NURSING PROGon 06-10-2023 NURSING PROG Normal [facility] NURSING PROG Normal [facility] Basic metabolic 2000 panelon 06-09-2023 Anion gap [Moles/Vol] 9 mmol/L Normal 9-18 [facility] Comment on above: Order Comment: Speci men Type: BLOOD SPECIMENOrdering Facility: [facility] Address: [address] [place] [address] Performed By: #### 2 4321-2 ####[facility] [place] LABCLIA [id number] [place] [address] [place] Calcium [Mass/Vol] 8.7 mg/dL Normal 8.5-10.2 [facility] Comment on above: Order Comment: Speci men Type: BLOOD SPECIMENOrdering Facility: [facility] Address: [address] [place] [address] Performed By: #### 2 4321-2 ####[facility] [place] LABCLIA [id number] [place] [address] [place] Chloride [Moles/Vol] 105 mmol/L Normal 97-105 [facility] Comment on above: Order Comment: Speci men Type: BLOOD SPECIMENOrdering Facility: [facility] Address: [address] [place] [address] Performed By: #### 2 4321-2 ####[facility] [place] LABCLIA [id number] [place] [address] [place] CO2 [Moles/Vol] 27 mmol/L Normal 22-30 [facility] Comment on above: Order Comment: Speci men Type: BLOOD SPECIMENOrdering Facility: [facility] Address: [address] [place] [address] Performed By: #### 2 4321-2 ####[facility] [place] LABCLIA [id number] [place] [address] [place] Creatinine [Mass/Vol] 2.25 mg/dL High 0.73-1.22 [facility] Comment on above: Order Comment: Speci men Type: BLOOD SPECIMENOrdering Facility: [facility] Address: [address] [place] [address] Performed By: #### 2 4321-2 ####[facility] LABIA [id number] [place] [address] [place] Creatinine and Glomerular filtration rate.predicted panel (S/P/Bld) 32 mL/min/1.73m??? Low >=60 [facility] Comment on above: Order Comment: Luz clement Type: BLOOD SPECIMENOrdering Facility: [facility] Address: [address] [place] [address] Result Comment: Breanne mated Glomerular Filtration Rate (eGFR) is calculated using the 2020 CKD-EPI creatinine equation. This equation utilizes serum creatinine, sex, and age as parameters. The creatinine assay has traceable calibration to isotope dilution-mass spectrometry. Refer to KDIGO guidelines for clinical interpretation. In patients with unstable renal function, e.g. those with acute kidney injury, the eGFR may not accurately reflect actual GFR. Performed By: #### 2 4321-2 ####[facility] LABIA [id number] [place] [address] [place] Glucose [Mass/Vol] 151 mg/dL High 74-99 [facility] Comment on above: Order Comment: Luz vaughan Type: BLOOD SPECIMENOrdering Facility: [facility] Address: [address] [place] [address] Result Comment: The [place] Diabetes Association (ADA) provides guidance for cutoff values for fasting glucose and random glucose. The ADA defines fasting as no caloric intake for at least 8 hours. Fasting plasma glucose results between 100 to 125 mg/dL indicate increased risk for diabetes (prediabetes).Fasting plasma glucose results greater than or equal to 126 mg/dL meet the criteria for diagnosis of diabetes. In the absence of unequivocal hyperglycemia, results should be confirmed by repeat testing. In a patient with classic symptoms of hyperglycemia or hyperglycemic crisis, random plasma glucose results greater than or equal to 200 mg/dL meet the criteria for diagnosis of diabetes.Reference: Standards of Medical Care in Diabetes 2016, [place] [employer]. Diabetes Care. 2016.39(Suppl 1). Performed By: #### 2 4321-2 ####[facility] [place] LABCLIA [id number] [place] [address] [place] Potassium [Moles/Vol] 5.0 mmol/L Normal 3.7-5.1 [facility] Comment on above: Order Comment: Speci men Type: BLOOD SPECIMENOrdering Facility: [facility] Address: [address] [place] [address] Performed By: #### 2 4321-2 ####[facility] [place] LABCLIA [id number] [facility] [address] [place] Sodium [Moles/Vol] 141 mmol/L Normal 136-144 [facility] Comment on above: Order Comment: Speci men Type: BLOOD SPECIMENOrdering Facility: [facility] Address: [address] [place] [address] Performed By: #### 2 4321-2 ####[facility] [place] LABCLIA [id number] [place] [address] [place] Urea nitrogen [Mass/Vol] 48 mg/dL High 9-24 [facility] Comment on above: Order Comment: Speci men Type: BLOOD SPECIMENOrdering Facility: [facility] Address: [address] [place] [address] Performed By: #### 2 4321-2 ####[facility] [place] LABCLIA [id number] [place] [address] [place] NURSING PROGon 06-09-2023 NURSING PROG Normal [facility] PT EDon 06-09-2023 PT ED Normal [facility] SOCIAL WORKon 06-09-2023 SOCIAL WORK Normal [facility] THERAPY NTon 06-09-2023 THERAPY NT Normal [facility] THERAPY NT Normal [facility] THERAPY NT Normal [facility] Basic metabolic 2000 panelon 06-08-2023 Anion gap [Moles/Vol] 11 mmol/L Normal 9-18 [facility] Comment on above: Order Comment: Speci men Type: BLOOD SPECIMENOrdering Facility: [facility] Address: [address] [place] [address] Performed By: #### 2 4321-2 ####[facility] [place] LABCLIA [id number] [place] [address] [place] Calcium [Mass/Vol] 9.2 mg/dL Normal 8.5-10.2 [facility] Comment on above: Order Comment: Speci men Type: BLOOD SPECIMENOrdering Facility: [facility] Address: [address] [place] [address] Performed By: #### 2 4321-2 ####[facility] [place] LABCLIA [id number] [place] [address] [place] Chloride [Moles/Vol] 105 mmol/L Normal 97-105 [facility] Comment on above: Order Comment: Speci men Type: BLOOD SPECIMENOrdering Facility: [facility] Address: [address] [place] [address] Performed By: #### 2 4321-2 ####[facility] [place] LABCLIA [id number] [place] [address] [place] CO2 [Moles/Vol] 27 mmol/L Normal 22-30 [facility] Comment on above: Order Comment: Speci men Type: BLOOD SPECIMENOrdering Facility: [facility] Address: [address] [place] [address] Performed By: #### 2 4321-2 ####[facility] [place] LABCLIA [id number] [place] [address] [place] Creatinine [Mass/Vol] 2.23 mg/dL High 0.73-1.22 [facility] Comment on above: Order Comment: Speci men Type: BLOOD SPECIMENOrdering Facility: [facility] Address: [facility] [place] [address] Performed By: #### 2 4321-2 ####[facility] [place] LABCLIA [id number] [place] [address] [place] Creatinine and Glomerular filtration rate.predicted panel (S/P/Bld) 32 mL/min/1.73m??? Low >=60 [facility] Comment on above: Order Comment: Luz vaughan Type: BLOOD SPECIMENOrdering Facility: [facility] Address: [address] [place] [address] Result Comment: Breanne mated Glomerular Filtration Rate (eGFR) is calculated using the 2020 CKD-EPI creatinine equation. This equation utilizes serum creatinine, sex, and age as parameters. The creatinine assay has traceable calibration to isotope dilution-mass spectrometry. Refer to KDIGO guidelines for clinical interpretation. In patients with unstable renal function, e.g. those with acute kidney injury, the eGFR may not accurately reflect actual GFR. Performed By: #### 2 4321-2 ####[facility] LABCLIA [id number] [place] [address] [place] Glucose [Mass/Vol] 131 mg/dL High 74-99 [facility] Comment on above: Order Comment: Luz vaughan Type: BLOOD SPECIMENOrdering Facility: [facility] Address: [address] [place] [address] Result Comment: The [place] Diabetes [employer] (ADA) provides guidance for cutoff values for fasting glucose and random glucose. The ADA defines fasting as no caloric intake for at least 8 hours. Fasting plasma glucose results between 100 to 125 mg/dL indicate increased risk for diabetes (prediabetes).Fasting plasma glucose results greater than or equal to 126 mg/dL meet the criteria for diagnosis of diabetes. In the absence of unequivocal hyperglycemia, results should be confirmed by repeat testing. In a patient with classic symptoms of hyperglycemia or hyperglycemic crisis, random plasma glucose results greater than or equal to 200 mg/dL meet the criteria for diagnosis of diabetes.Reference: Standards of Medical Care in Diabetes 2016, [place] [employer]. Diabetes Care. 2016.39(Suppl 1). Performed By: #### 2 4321-2 ####[facility] LABCLIA [id number] [place] [address] [place] Potassium [Moles/Vol] 5.8 mmol/L High 3.7-5.1 [facility] Comment on above: Order Comment: Luz vaughan Type: BLOOD SPECIMENOrdering Facility: [facility] Address: [address] [place] [address] Performed By: #### 2 4321-2 ####[facility] [place] LABCLIA [id number] [facility] [address] [place] Sodium [Moles/Vol] 143 mmol/L Normal 136-144 [facility] Comment on above: Order Comment: Speci men Type: BLOOD SPECIMENOrdering Facility: [facility] Address: [address] [place] [address] Performed By: #### 2 4321-2 ####[facility] [place] LABCLIA [id number] [place] [address] [place] Urea nitrogen [Mass/Vol] 47 mg/dL High 9-24 [facility] Comment on above: Order Comment: Speci men Type: BLOOD SPECIMENOrdering Facility: [facility] Address: [address] [place] [address] Performed By: #### 2 4321-2 ####[facility] [place] LABCLIA [id number] [facility] [place] [address] [place] Anion gap [Moles/Vol] 10 mmol/L Normal 9-18 [facility] Comment on above: Order Comment: Speci men Type: BLOOD SPECIMENOrdering Facility: [facility] Address: [address] [place] [address] Performed By: #### 2 4321-2 ####[facility] LABCLIA [id number] [facility] [address] [place] Calcium [Mass/Vol] 9.1 mg/dL Normal 8.5-10.2 [facility] Comment on above: Order Comment: Speci men Type: BLOOD SPECIMENOrdering Facility: [facility] Address: [address] [place] [address] Performed By: #### 2 4321-2 ####[facility] LABCLIA [id number] [facility] [place] [address] [place] Chloride [Moles/Vol] 104 mmol/L Normal 97-105 [facility] Comment on above: Order Comment: Speci men Type: BLOOD SPECIMENOrdering Facility: [facility] Address: [address] [place] [address] Performed By: #### 2 4321-2 ####[facility] Analyze [facility] LABCLIA [id number] [place] [address] [place] CO2 [Moles/Vol] 27 mmol/L Normal 22-30 [facility] Comment on above: Order Comment: Speci men Type: BLOOD SPECIMENOrdering Facility: [facility] Address: [address] [place] [address] Performed By: #### 2 4321-2 ####[facility] LABCLIA [id number] [place] [address] [place] Creatinine [Mass/Vol] 2.26 mg/dL High 0.73-1.22 [facility] Comment on above: Order Comment: Speci men Type: BLOOD SPECIMENOrdering Facility: [facility] Address: [address] [place] [address] Performed By: #### 2 4321-2 ####[facility] LABCLIA [id number] [place] [address] [place] Creatinine and Glomerular filtration rate.predicted panel (S/P/Bld) 32 mL/min/1.73m??? Low >=60 [facility] Comment on above: Order Comment: Speci men Type: BLOOD SPECIMENOrdering Facility: [facility] Address: [address] [place] [address] Result Comment: Breanne mated Glomerular Filtration Rate (eGFR) is calculated using the 2020 CKD-EPI creatinine equation. This equation utilizes serum creatinine, sex, and age as parameters. The creatinine assay has traceable calibration to isotope dilution-mass spectrometry. Refer to KDIGO guidelines for clinical interpretation. In patients with unstable renal function, e.g. those with acute kidney injury, the eGFR may not accurately reflect actual GFR. Performed By: #### 2 4321-2 ####[facility] Analyze [facility]I LABCLIA [id number] [place] [address] [place] Glucose [Mass/Vol] 166 mg/dL High 74-99 [facility] Comment on above: Order Comment: Luz clement Type: BLOOD SPECIMENOrdering Facility: [facility] Address: [address] [id number] Result Comment: The [place] Diabetes Association (ADA) provides guidance for cutoff values for fasting glucose and random glucose. The ADA defines fasting as no caloric intake for at least 8 hours. Fasting plasma glucose results between 100 to 125 mg/dL indicate increased risk for diabetes (prediabetes).Fasting plasma glucose results greater than or equal to 126 mg/dL meet the criteria for diagnosis of diabetes. In the absence of unequivocal hyperglycemia, results should be confirmed by repeat testing. In a patient with classic symptoms of hyperglycemia or hyperglycemic crisis, random plasma glucose results greater than or equal to 200 mg/dL meet the criteria for diagnosis of diabetes.Reference: Standards of Medical Care in Diabetes 2016, [place] [employer] Association. Diabetes Care. 2016.39(Suppl 1). Performed By: #### 2 4321-2 ####[facility] Analyze [facility] LABCLIA [id number] [place] [address] [place] Potassium [Moles/Vol] 5.7 mmol/L High 3.7-5.1 [facility] Comment on above: Order Comment: Luz clement Type: BLOOD SPECIMENOrdering Facility: [facility] Address: [address] [place] [address] Performed By: #### 2 4321-2 ####[facility] Analyze [facility] LABCLIA [id number] [place] [address] [place] Sodium [Moles/Vol] 141 mmol/L Normal 136-144 [facility] Comment on above: Order Comment: Luz vaughan Type: BLOOD SPECIMENOrdering Facility: [facility] Address: [address] [id number] Performed By: #### 2 4321-2 ####[facility] [place] LABCLIA [id number] [place] [address] [place] Urea nitrogen [Mass/Vol] 50 mg/dL High 9-24 [facility] Comment on above: Order Comment: Brooksi men Type: BLOOD SPECIMENOrdering Facility: [facility] Address: [address] [place] [address] Performed By: #### 2 4321-2 ####[facility] [place] LABCLIA [id number] [place] [address] [place] POTASSIUM BLDon 06-08-2023 Potassium [Moles/Vol] 5.0 mmol/L Normal 3.7-5.1 [facility] Comment on above: Order Comment: Speci men Type: BLOOD SPECIMENOrdering Facility: [facility] Address: [address] [place] [address] Performed By: #### K 1 ####[facility] [place] LABCLIA [id number] [place] [address] [facility] [place] SOCIAL WORKon 06-08-2023 SOCIAL WORK Normal [facility] THERAPY NTon 06-08-2023 THERAPY NT Normal [facility] THERAPY NT Normal [facility] Basic metabolic 2000 panelon 06-07-2023 Anion gap [Moles/Vol] 10 mmol/L Normal 9-18 [facility] Comment on above: Order Comment: Speci men Type: BLOOD SPECIMENOrdering Facility: [facility] Address: [address] [place] [address] Performed By: #### 2 4321-2 ####[facility] LABCLIA [id number] [place] [address] [place] Calcium [Mass/Vol] 9.3 mg/dL Normal 8.5-10.2 [facility] Comment on above: Order Comment: Speci men Type: BLOOD SPECIMENOrdering Facility: [facility] Address: [address] [place] [address] Performed By: #### 2 4321-2 ####[facility] [place] LABCLIA [id number] [place] [address] [place] Chloride [Moles/Vol] 108 mmol/L High 97-105 [facility] Comment on above: Order Comment: Speci men Type: BLOOD SPECIMENOrdering Facility: [facility] Address: [address] [place] [address] Performed By: #### 2 4321-2 ####[facility] LABCLIA [id number] [place] [address] [place] CO2 [Moles/Vol] 28 mmol/L Normal 22-30 [facility] Comment on above: Order Comment: Speci men Type: BLOOD SPECIMENOrdering Facility: [facility] Address: [address] [place] [address] Performed By: #### 2 4321-2 ####[facility] LABCLIA [id number] [place] [address] [place] Creatinine [Mass/Vol] 2.43 mg/dL High 0.73-1.22 [facility] Comment on above: Order Comment: Speci men Type: BLOOD SPECIMENOrdering Facility: [facility] Address: [address] [place] [address] Performed By: #### 2 4321-2 ####[facility] LABCLIA [id number] [place] [address] [facility] Creatinine and Glomerular filtration rate.predicted panel (S/P/Bld) 29 mL/min/1.73m??? Low >=60 [facility] Comment on above: Order Comment: Speci men Type: BLOOD SPECIMENOrdering Facility: [facility] Address: [address] [place] [address] Result Comment: Breanne mated Glomerular Filtration Rate (eGFR) is calculated using the 2020 CKD-EPI creatinine equation. This equation utilizes serum creatinine, sex, and age as parameters. The creatinine assay has traceable calibration to isotope dilution-mass spectrometry. Refer to KDIGO guidelines for clinical interpretation. In patients with unstable renal function, e.g. those with acute kidney injury, the eGFR may not accurately reflect actual GFR. Performed By: #### 2 4321-2 ####[facility] LABCLIA [id number] [place] [address] [place] Glucose [Mass/Vol] 139 mg/dL High 74-99 [facility] Comment on above: Order Comment: Speci men Type: BLOOD SPECIMENOrdering Facility: [facility] Address: [address] [place] [address] Result Comment: The [place] Diabetes Association (ADA) provides guidance for cutoff values for fasting glucose and random glucose. The ADA defines fasting as no caloric intake for at least 8 hours. Fasting plasma glucose results between 100 to 125 mg/dL indicate increased risk for diabetes (prediabetes).Fasting plasma glucose results greater than or equal to 126 mg/dL meet the criteria for diagnosis of diabetes. In the absence of unequivocal hyperglycemia, results should be confirmed by repeat testing. In a patient with classic symptoms of hyperglycemia or hyperglycemic crisis, random plasma glucose results greater than or equal to 200 mg/dL meet the criteria for diagnosis of diabetes.Reference: Standards of Medical Care in Diabetes 2016, [place] [employer]. Diabetes Care. 2016.39(Suppl 1). Performed By: #### 2 4321-2 ####[facility] [place] LABCLIA [id number] [place] [address] [place] Potassium [Moles/Vol] 5.8 mmol/L High 3.7-5.1 [facility] Comment on above: Order Comment: Speci men Type: BLOOD SPECIMENOrdering Facility: [facility] Address: [address] [place] [address] Performed By: #### 2 4321-2 ####[facility] [place] LABCLIA [id number] [place] [address] [place] Sodium [Moles/Vol] 146 mmol/L High 136-144 [facility] Comment on above: Order Comment: Speci men Type: BLOOD SPECIMENOrdering Facility: [facility] Address: [address] [id number] Performed By: #### 2 4321-2 ####[facility] [place] LABCLIA [id number] [place] [address] [place] Urea nitrogen [Mass/Vol] 53 mg/dL High 9-24 [facility] Comment on above: Order Comment: Speci men Type: BLOOD SPECIMENOrdering Facility: [facility] Address: [address] [id number] Performed By: #### 2 4321-2 ####[facility] [place] LABCLIA [id number] [place] [address] [facility] Comprehensive metabolic 2000 panelon 06-07-2023 Albumin [Mass/Vol] 3.1 g/dL Low 3.9-4.9 [facility] Comment on above: Order Comment: Speci men Type: BLOOD SPECIMENOrdering Facility: [facility] Address: [address] [place] [address] Performed By: #### 2 4323-8 ####[facility] [place] LABCLIA [id number] [place] [address] [facility] ALP [Catalytic activity/Vol] 112 U/L Normal 38-113 [facility] Comment on above: Order Comment: Speci men Type: BLOOD SPECIMENOrdering Facility: [facility] Address: [address] [place] [address] Performed By: #### 2 4323-8 ####[facility] [place] LABCLIA [id number] [facility] [place] [address] [facility] ALT With P-5'-P [Catalytic activity/Vol] 25 U/L Normal 10-54 [facility] Comment on above: Order Comment: Speci men Type: BLOOD SPECIMENOrdering Facility: [facility] Address: [address] [place] [address] Performed By: #### 2 4323-8 ####[facility] [place] LABCLIA [id number] [facility] [place] [address] [facility] Anion gap [Moles/Vol] 12 mmol/L Normal 9-18 [facility] Comment on above: Order Comment: Speci men Type: BLOOD SPECIMENOrdering Facility: [facility] Address: [address] [place] [address] Performed By: #### 2 4323-8 ####[facility] [place] LABCLIA [id number] [place] [address] [facility] [place] AST With P-5'-P [Catalytic activity/Vol] 20 U/L Normal 14-40 [facility] Comment on above: Order Comment: Speci men Type: BLOOD SPECIMENOrdering Facility: [facility] Address: [address] [place] [address] Performed By: #### 2 4323-8 ####[facility] [place] LABCLIA [id number] [place] [address] [place] Bilirubin [Mass/Vol] mg/dL Low 0.2-1.3 [facility] Comment on above: Order Comment: Speci men Type: BLOOD SPECIMENOrdering Facility: [facility] Address: [address] [place] [address] Performed By: #### 2 4323-8 ####[facility] [place] LABCLIA [id number] [place] [address] [place] Calcium [Mass/Vol] 9.0 mg/dL Normal 8.5-10.2 [facility] Comment on above: Order Comment: Speci men Type: BLOOD SPECIMENOrdering Facility: [facility] Address: [address] [place] [address] Performed By: #### 2 4323-8 ####[facility] [place] LABCLIA [id number] [place] [facility] [address] [place] Chloride [Moles/Vol] 105 mmol/L Normal 97-105 [facility] Comment on above: Order Comment: Speci men Type: BLOOD SPECIMENOrdering Facility: [facility] Address: [address] [place] [address] Performed By: #### 2 4323-8 ####[facility] [place] LABCLIA [id number] [place] [address] [place] CO2 [Moles/Vol] 24 mmol/L Normal 22-30 [facility] Comment on above: Order Comment: Speci men Type: BLOOD SPECIMENOrdering Facility: [facility] Address: [address] [place] [address] Performed By: #### 2 4323-8 ####[facility] [place] LABCLIA [id number] [place] [address] [place] Creatinine [Mass/Vol] 2.22 mg/dL High 0.73-1.22 [facility] Comment on above: Order Comment: Luz vaughan Type: BLOOD SPECIMENOrdering Facility: [facility] Address: [address] [place] [address] Performed By: #### 2 4323-8 ####[facility] LABCLIA [id number] [place] [address] [facility] Creatinine and Glomerular filtration rate.predicted panel (S/P/Bld) 32 mL/min/1.73m??? Low >=60 [facility] Comment on above: Order Comment: Luz vaughan Type: BLOOD SPECIMENOrdering Facility: [facility] Address: [address] [place] [address] Result Comment: Breanne mated Glomerular Filtration Rate (eGFR) is calculated using the 2020 CKD-EPI creatinine equation. This equation utilizes serum creatinine, sex, and age as parameters. The creatinine assay has traceable calibration to isotope dilution-mass spectrometry. Refer to KDIGO guidelines for clinical interpretation. In patients with unstable renal function, e.g. those with acute kidney injury, the eGFR may not accurately reflect actual GFR. Performed By: #### 2 4323-8 ####[facility] LABCLIA [id number] [place] [address] [place] Glucose [Mass/Vol] 103 mg/dL High 74-99 [facility] Comment on above: Order Comment: Luz vaughan Type: BLOOD SPECIMENOrdering Facility: [facility] Address: [address] [place] [address] Result Comment: The [place] Diabetes Association (ADA) provides guidance for cutoff values for fasting glucose and random glucose. The ADA defines fasting as no caloric intake for at least 8 hours. Fasting plasma glucose results between 100 to 125 mg/dL indicate increased risk for diabetes (prediabetes).Fasting plasma glucose results greater than or equal to 126 mg/dL meet the criteria for diagnosis of diabetes. In the absence of unequivocal hyperglycemia, results should be confirmed by repeat testing. In a patient with classic symptoms of hyperglycemia or hyperglycemic crisis, random plasma glucose results greater than or equal to 200 mg/dL meet the criteria for diagnosis of diabetes.Reference: Standards of Medical Care in Diabetes 2016, [place] [employer]. Diabetes Care. 2016.39(Suppl 1). Performed By: #### 2 4323-8 ####[facility] [place] LABCLIA [id number] [place] [address] [place] Potassium [Moles/Vol] 4.9 mmol/L Normal 3.7-5.1 [facility] Comment on above: Order Comment: Speci men Type: BLOOD SPECIMENOrdering Facility: [facility] Address: [address] [place] [address] Performed By: #### 2 4323-8 ####[facility] [place] LABCLIA [id number] [place] [address] [place] Protein [Mass/Vol] 6.1 g/dL Low 6.3-8.0 [facility] Comment on above: Order Comment: Speci men Type: BLOOD SPECIMENOrdering Facility: [facility] Address: [address] [place] [address] Performed By: #### 2 4323-8 ####[facility] Analyze ReI LABCLIA [id number] [place] [address] [place] Sodium [Moles/Vol] 141 mmol/L Normal 136-144 [facility] Comment on above: Order Comment: Speci men Type: BLOOD SPECIMENOrdering Facility: [facility] Address: [address] [place] [address] Performed By: #### 2 4323-8 ####[facility] [place] LABCLIA [id number] [place] [address] [place] Urea nitrogen [Mass/Vol] 49 mg/dL High 9-24 [facility] Comment on above: Order Comment: Speci men Type: BLOOD SPECIMENOrdering Facility: [facility] Address: [address] [place] [address] Performed By: #### 2 4323-8 ####[facility] [place] LABCLIA [id number] [place] [address] [place] SOCIAL WORKon 06-07-2023 SOCIAL WORK Normal [facility] THERAPY NTon 06-07-2023 THERAPY NT Normal [facility] THERAPY NT Normal [facility] SOCIAL WORKon 06-06-2023 SOCIAL WORK Normal [facility] THERAPY NTon 06-06-2023 THERAPY NT Normal [facility] Basic metabolic 2000 panelon 06-05-2023 Anion gap [Moles/Vol] 9 mmol/L Normal 9-18 [facility] Comment on above: Order Comment: Speci men Type: BLOOD SPECIMENOrdering Facility: [facility] Address: [address] [place] [address] Performed By: #### 2 4321-2 ####[facility] [place] LABCLIA [id number] [place] [address] [place] Calcium [Mass/Vol] 8.7 mg/dL Normal 8.5-10.2 [facility] Comment on above: Order Comment: Speci men Type: BLOOD SPECIMENOrdering Facility: [facility] Address: [address] [place] [address] Performed By: #### 2 4321-2 ####[facility] [place] LABCLIA [id number] [place] [address] [place] Chloride [Moles/Vol] 107 mmol/L High 97-105 [facility] Comment on above: Order Comment: Speci men Type: BLOOD SPECIMENOrdering Facility: [facility] Address: [address] [place] [address] Performed By: #### 2 4321-2 ####[facility] [place] LABCLIA [id number] [facility] [place] [address] [place] CO2 [Moles/Vol] 25 mmol/L Normal 22-30 [facility] Comment on above: Order Comment: Speci men Type: BLOOD SPECIMENOrdering Facility: [facility] Address: [address] [place] [address] Performed By: #### 2 4321-2 ####[facility] [place] LABCLIA [id number] [facility] [place] [address] [place] Creatinine [Mass/Vol] 2.20 mg/dL High 0.73-1.22 [facility] Comment on above: Order Comment: Luz vaughan Type: BLOOD SPECIMENOrdering Facility: [facility] Address: [address] [place] [address] Performed By: #### 2 4321-2 ####[facility] LABCLIA [id number] [place] [address] [facility] Creatinine and Glomerular filtration rate.predicted panel (S/P/Bld) 33 mL/min/1.73m??? Low >=60 [facility] Comment on above: Order Comment: Luz vaughan Type: BLOOD SPECIMENOrdering Facility: [facility] Address: [address] [place] [address] Result Comment: Breanne mated Glomerular Filtration Rate (eGFR) is calculated using the 2020 CKD-EPI creatinine equation. This equation utilizes serum creatinine, sex, and age as parameters. The creatinine assay has traceable calibration to isotope dilution-mass spectrometry. Refer to KDIGO guidelines for clinical interpretation. In patients with unstable renal function, e.g. those with acute kidney injury, the eGFR may not accurately reflect actual GFR. Performed By: #### 2 4321-2 ####[facility] LABCLIA [id number] [place] [address] [place] Glucose [Mass/Vol] 148 mg/dL High 74-99 [facility] Comment on above: Order Comment: Luz vaughan Type: BLOOD SPECIMENOrdering Facility: [facility] Address: [address] [place] [address] Result Comment: The [place] Diabetes Association (ADA) provides guidance for cutoff values for fasting glucose and random glucose. The ADA defines fasting as no caloric intake for at least 8 hours. Fasting plasma glucose results between 100 to 125 mg/dL indicate increased risk for diabetes (prediabetes).Fasting plasma glucose results greater than or equal to 126 mg/dL meet the criteria for diagnosis of diabetes. In the absence of unequivocal hyperglycemia, results should be confirmed by repeat testing. In a patient with classic symptoms of hyperglycemia or hyperglycemic crisis, random plasma glucose results greater than or equal to 200 mg/dL meet the criteria for diagnosis of diabetes.Reference: Standards of Medical Care in Diabetes 2016, [place] [employer]. Diabetes Care. 2016.39(Suppl 1). Performed By: #### 2 4321-2 ####[facility] Analyze [facility] LABCLIA [id number] [place] [address] [place] Potassium [Moles/Vol] 5.0 mmol/L Normal 3.7-5.1 [facility] Comment on above: Order Comment: Speci men Type: BLOOD SPECIMENOrdering Facility: [facility] Address: [address] [place] [address] Performed By: #### 2 4321-2 ####[facility] Analyze [facility] LABCLIA [id number] [place] [address] [place] Sodium [Moles/Vol] 141 mmol/L Normal 136-144 [facility] Comment on above: Order Comment: Speci men Type: BLOOD SPECIMENOrdering Facility: [facility] Address: [address] [place] [address] Performed By: #### 2 4321-2 ####[facility] Analyze [facility] LABCLIA [id number] [place] [address] [place] Urea nitrogen [Mass/Vol] 44 mg/dL High 9-24 [facility] Comment on above: Order Comment: Speci men Type: BLOOD SPECIMENOrdering Facility: [facility] Address: [address] [place] [address] Performed By: #### 2 4321-2 ####[facility] Analyze ReI LABCLIA [id number] [place] [address] [place] NUTRITIONon 06-05-2023 NUTRITION Normal [facility] PT EDon 06-05-2023 PT ED Normal [facility] SOCIAL WORKon 06-05-2023 SOCIAL WORK Normal [facility] SOCIAL WORK Normal [facility] THERAPY NTon 06-05-2023 THERAPY NT Normal [facility] THERAPY NT Normal [facility] Basic metabolic 2000 panelon 06-04-2023 Anion gap [Moles/Vol] 9 mmol/L Normal 9-18 [facility] Comment on above: Order Comment: Speci men Type: BLOOD SPECIMENOrdering Facility: [facility] Address: [address] [place] [address] Performed By: #### 2 4321-2 ####[facility] [place] LABCLIA [id number] [place] [address] [place] Calcium [Mass/Vol] 8.7 mg/dL Normal 8.5-10.2 [facility] Comment on above: Order Comment: Speci men Type: BLOOD SPECIMENOrdering Facility: [facility] Address: [address] [place] [address] Performed By: #### 2 4321-2 ####[facility] [place] LABCLIA [id number] [facility] [place] [address] [place] Chloride [Moles/Vol] 106 mmol/L High 97-105 [facility] Comment on above: Order Comment: Speci men Type: BLOOD SPECIMENOrdering Facility: [facility] Address: [address] [place] [address] Performed By: #### 2 4321-2 ####[facility] [place] LABCLIA [id number] [facility] [place] [address] [place] CO2 [Moles/Vol] 26 mmol/L Normal 22-30 [facility] Comment on above: Order Comment: Speci men Type: BLOOD SPECIMENOrdering Facility: [facility] Address: [address] [place] [address] Performed By: #### 2 4321-2 ####[facility] [place] LABCLIA [id number] [facility] [place] [address] [place] Creatinine [Mass/Vol] 2.33 mg/dL High 0.73-1.22 [facility] Comment on above: Order Comment: Speci men Type: BLOOD SPECIMENOrdering Facility: [facility] Address: [address] [place] [address] Performed By: #### 2 4321-2 ####[facility] [place] LABCLIA [id number] [place] [address] [place] Creatinine and Glomerular filtration rate.predicted panel (S/P/Bld) 31 mL/min/1.73m??? Low >=60 [facility] Comment on above: Order Comment: Luz vaughan Type: BLOOD SPECIMENOrdering Facility: [facility] Address: [address] [place] [address] Result Comment: Breanne mated Glomerular Filtration Rate (eGFR) is calculated using the 2020 CKD-EPI creatinine equation. This equation utilizes serum creatinine, sex, and age as parameters. The creatinine assay has traceable calibration to isotope dilution-mass spectrometry. Refer to KDIGO guidelines for clinical interpretation. In patients with unstable renal function, e.g. those with acute kidney injury, the eGFR may not accurately reflect actual GFR. Performed By: #### 2 4321-2 ####[facility] LABCLIA [id number] [place] [address] [place] Glucose [Mass/Vol] 150 mg/dL High 74-99 [facility] Comment on above: Order Comment: Luz vaughan Type: BLOOD SPECIMENOrdering Facility: [facility] Address: [address] [place] [address] Result Comment: The [place] Diabetes [employer] (ADA) provides guidance for cutoff values for fasting glucose and random glucose. The ADA defines fasting as no caloric intake for at least 8 hours. Fasting plasma glucose results between 100 to 125 mg/dL indicate increased risk for diabetes (prediabetes).Fasting plasma glucose results greater than or equal to 126 mg/dL meet the criteria for diagnosis of diabetes. In the absence of unequivocal hyperglycemia, results should be confirmed by repeat testing. In a patient with classic symptoms of hyperglycemia or hyperglycemic crisis, random plasma glucose results greater than or equal to 200 mg/dL meet the criteria for diagnosis of diabetes.Reference: Standards of Medical Care in Diabetes 2016, [place] [employer] Association. Diabetes Care. 2016.39(Suppl 1). Performed By: #### 2 4321-2 ####[facility] LABCLIA [id number] [place] [address] [place] Potassium [Moles/Vol] 5.1 mmol/L Normal 3.7-5.1 [facility] Comment on above: Order Comment: Speci men Type: BLOOD SPECIMENOrdering Facility: [facility] Address: [address] [place] [address] Performed By: #### 2 4321-2 ####[facility] [place] LABCLIA [id number] [place] [address] [place] Sodium [Moles/Vol] 141 mmol/L Normal 136-144 [facility] Comment on above: Order Comment: Speci men Type: BLOOD SPECIMENOrdering Facility: [facility] Address: [address] [place] [address] Performed By: #### 2 4321-2 ####[facility] [place] LABCLIA [id number] [place] [address] [place] Urea nitrogen [Mass/Vol] 45 mg/dL High 9-24 [facility] Comment on above: Order Comment: Speci men Type: BLOOD SPECIMENOrdering Facility: [facility] Address: [address] [place] [address] Performed By: #### 2 4321-2 ####[facility] [place] LABCLIA [id number] [place] [address] [place] CBC panel Auto (Bld)on 06-03 Erythrocyte distribution width (RBC) [Ratio] 12.9 % Normal 11.5-15.0 [facility] Comment on above: Order Comment: Speci men Type: BLOOD SPECIMENOrdering Facility: [facility] Address: [address] [place] [id number] Performed By: #### 5 8410-2, WAMMR ####[facility] [place] LABCLIA [id number] [place] [address] [place] Hematocrit (Bld) [Volume fraction] 35.5 % Low 39.0-51.0 [facility] Comment on above: Order Comment: Speci men Type: BLOOD SPECIMENOrdering Facility: [facility] Address: [address] [place] [address] Performed By: #### 5 8410-2, WAMMR ####[facility] LABCLIA [id number] [place] [address] [place] [facility] Hemoglobin (Bld) [Mass/Vol] 11.1 g/dL Low 13.0-17.0 [facility] Comment on above: Order Comment: Speci men Type: BLOOD SPECIMENOrdering Facility: [facility] Address: [address] [place] [address] Performed By: #### 5 8410-2, WAMMR ####[facility] LABCLIA [id number] [place] [address] [place] [facility] MCH (RBC) [Entitic mass] 28.5 pg Normal 26.0-34.0 [facility] Comment on above: Order Comment: Speci men Type: BLOOD SPECIMENOrdering Facility: [facility] Address: [address] [place] [address] Performed By: #### 5 8410-2, WAMMR ####[facility] LABCLIA [id number] [place], [place] [id number] [place] [address] MCHC (RBC) [Mass/Vol] 31.3 g/dL Normal 30.5-36.0 [facility] Comment on above: Order Comment: Speci men Type: BLOOD SPECIMENOrdering Facility: [facility] Address: [address] [place] [address] Performed By: #### 5 8410-2, WAMMR ####[facility] LABCLIA [id number] [place] [address] [place] [facility] MCV (RBC) [Entitic vol] 91.0 fL Normal 80.0-100.0 [facility] Comment on above: Order Comment: Speci men Type: BLOOD SPECIMENOrdering Facility: [facility] Address: [address] [place] [address] Performed By: #### 5 8410-2, WAMMR ####[facility] LABCLIA [id number] [place] [address] [facility] Platelet mean volume (Bld) [Entitic vol] 10.5 fL Normal 9.0-12.7 [facility] Comment on above: Order Comment: Speci men Type: BLOOD SPECIMENOrdering Facility: [facility] Address: [address] [place] [address] Performed By: #### 5 8410-2, WAMMR ####[facility] [place] LABCLIA [id number] [place] [facility] [address] [place] Platelets (Bld) [#/Vol] 217 10*3/uL Normal 150-400 [facility] Comment on above: Order Comment: Speci men Type: BLOOD SPECIMENOrdering Facility: [facility] Address: [address] [place] [address] Result Comment: No c lot detected. Performed By: #### 5 8410-2, WAMMR ####[facility] [place] LABCLIA [id number] [facility] [place] [address] [place] RBC (Bld) [#/Vol] 3.90 10*6/uL Low 4.20-6.00 [facility] Comment on above: Order Comment: Speci men Type: BLOOD SPECIMENOrdering Facility: [facility] Address: [address] [place] [address] Performed By: #### 5 8410-2, WAMMR ####[facility] [place] LABCLIA [id number] [place] [address] [place] WBC (Bld) [#/Vol] 3.18 10*3/uL Low 3.70-11.00 [facility] Comment on above: Order Comment: Speci men Type: BLOOD SPECIMENOrdering Facility: [facility] Address: [address] [place] [address] Performed By: #### 5 8410-2, WAMMR ####[facility] [place] LABCLIA [id number] [place] [address] [place] MORPH WAM REFLEXon 4 Platelets Estimate (Bld) [#/Vol] Adequate Normal [facility] Comment on above: Order Comment: Speci men Type: BLOOD SPECIMENOrdering Facility: [facility] Address: [address] [place] [address] Performed By: #### 5 8410-2, [facility] ####[facility] [place] LABCLIA [id number] [place] [address] [facility] Urinalysis complete panel (U )on 06-04-2023 Bilirubin Ql (U) Negative Normal Negative [facility] Comment on above: Order Comment: Speci men Type: URINE SPECIMENOrdering Facility: [facility] Address: [address] [place] [address] Performed By: #### 2 4356-8 ####[facility] [place] LABCLIA [id number] [place] [address] [facility] Clarity (Unsp spec) Clear Normal Clear [facility] Comment on above: Order Comment: Speci men Type: URINE SPECIMENOrdering Facility: [facility] Address: [address] [place] [address] Performed By: #### 2 4356-8 ####[facility] [place] LABCLIA [id number] [place] [address] [place] [facility] Color (U) Light Yellow Abnormal Yellow [facility] Comment on above: Order Comment: Speci men Type: URINE SPECIMENOrdering Facility: [facility] Address: [address] [place] [address] Performed By: #### 2 4356-8 ####[facility] [place] LABCLIA [id number] [place] [address] [facility] Glucose Test strip (U) [Mass/Vol] 2+ Abnormal Negative [facility] Comment on above: Order Comment: Speci men Type: URINE SPECIMENOrdering Facility: [facility] Address: [address] [place] [address] Performed By: #### 2 4356-8 ####[facility] [place] LABCLIA [id number] [place] [address] [place] Hemoglobin Ql (U) Trace Abnormal Negative [facility] Comment on above: Order Comment: Speci men Type: URINE SPECIMENOrdering Facility: [facility] Address: [address] [place] [address] Performed By: #### 2 4356-8 ####[facility] [place] LABCLIA [id number] [place] [address] [facility] Ketones Ql (U) Negative Normal Negative [facility] Comment on above: Order Comment: Speci men Type: URINE SPECIMENOrdering Facility: [facility] Address: [address] [place] [address] Performed By: #### 2 4356-8 ####[facility] [place] LABCLIA [id number] [place] [address] [facility] Leukocyte esterase Test strip Ql (U) Negative Normal Negative [facility] Comment on above: Order Comment: Speci men Type: URINE SPECIMENOrdering Facility: [facility] Address: [address] [place] [address] Performed By: #### 2 4356-8 ####[facility] [place] LABCLIA [id number] [place] [address] [place] [facility] Nitrite Ql (U) Negative Normal Negative [facility] Comment on above: Order Comment: Speci men Type: URINE SPECIMENOrdering Facility: [facility] Address: [address] [place] [address] Performed By: #### 2 4356-8 ####[facility] [place] LABCLIA [id number] [place] [address] [place] pH (U) 6.5 [pH] Normal 5.0-8.0 [facility] Comment on above: Order Comment: Speci men Type: URINE SPECIMENOrdering Facility: [facility] Address: [address] [place] [address] Performed By: #### 2 4356-8 ####[facility] [place] LABCLIA [id number] [place] [address] [place] Protein (U) [Mass/Vol] 3+ Abnormal Negative [facility] Comment on above: Order Comment: Speci men Type: URINE SPECIMENOrdering Facility: [facility] Address: [address] [place] [address] Performed By: #### 2 4356-8 ####[facility] LABCLIA [id number] [place] [address] [facility] RBC LM.HPF (Urine sed) [#/Area] 0-3 /HPF Normal 0-3 /HPF [facility] Comment on above: Order Comment: Speci men Type: URINE SPECIMENOrdering Facility: [facility] Address: [address] [place] [address] Performed By: #### 2 4356-8 ####[facility] LABCLIA [id number] [place] [id number] [facility] Specific gravity (U) [Rel density] 1.020 Normal 1.005-1.030 [facility] Comment on above: Order Comment: Speci men Type: URINE SPECIMENOrdering Facility: [facility] Address: [address] [place] [address] Performed By: #### 2 4356-8 ####[facility] LABCLIA [id number] [address] Urobilinogen Ql (U) 0.2 EU/dL Normal 0.2-1.0 EU/dL [facility] Comment on above: Order Comment: Speci men Type: URINE SPECIMENOrdering Facility: [facility] Address: [address] [place] [address] Performed By: #### 2 4356-8 ####[facility] [place] LABCLIA [id number] [place] [address] [facility] WBC LM.HPF (Urine sed) [#/Area] 0-5 /HPF Normal 0-5 /HPF [facility] Comment on above: Order Comment: Speci men Type: URINE SPECIMENOrdering Facility: [facility] Address: [address] [place] [address] Performed By: #### 2 4356-8 ####[facility] [place] LABCLIA [id number] [place] [address] [place] Basic metabolic 2000 panelon 06-03-2023 Anion gap [Moles/Vol] 10 mmol/L Normal 9-18 [facility] Comment on above: Order Comment: Speci men Type: BLOOD SPECIMENOrdering Facility: [facility] Address: [address] [place] [address] Performed By: #### 2 4321-2 ####[facility] [place] LABCLIA [id number] [place] [facility] [address] [place] Calcium [Mass/Vol] 8.7 mg/dL Normal 8.5-10.2 [facility] Comment on above: Order Comment: Speci men Type: BLOOD SPECIMENOrdering Facility: [facility] Address: [address] [place] [address] Performed By: #### 2 4321-2 ####[facility] [place] LABCLIA [id number] [facility] [place] [address] [place] Chloride [Moles/Vol] 105 mmol/L Normal 97-105 [facility] Comment on above: Order Comment: Speci men Type: BLOOD SPECIMENOrdering Facility: [facility] Address: [address] [place] [address] Performed By: #### 2 4321-2 ####[facility] [place] LABCLIA [id number] [facility] [place] [address] [place] CO2 [Moles/Vol] 26 mmol/L Normal 22-30 [facility] Comment on above: Order Comment: Speci men Type: BLOOD SPECIMENOrdering Facility: [facility] Address: [address] [place] [address] Performed By: #### 2 4321-2 ####[facility] [place] LABCLIA [id number] [place] [address] [place] Creatinine [Mass/Vol] 2.37 mg/dL High 0.73-1.22 [facility] Comment on above: Order Comment: Speci men Type: BLOOD SPECIMENOrdering Facility: [facility] Address: [address] [place] [address] Performed By: #### 2 4321-2 ####[facility] [employer] LABBluff WarsIA [id number] [place] [address] [place] Creatinine and Glomerular filtration rate.predicted panel (S/P/Bld) 30 mL/min/1.73m??? Low >=60 [facility] Comment on above: Order Comment: Luz vaughan Type: BLOOD SPECIMENOrdering Facility: [facility] Address: [address] [place] [address] Result Comment: Breanne mated Glomerular Filtration Rate (eGFR) is calculated using the 2020 CKD-EPI creatinine equation. This equation utilizes serum creatinine, sex, and age as parameters. The creatinine assay has traceable calibration to isotope dilution-mass spectrometry. Refer to KDIGO guidelines for clinical interpretation. In patients with unstable renal function, e.g. those with acute kidney injury, the eGFR may not accurately reflect actual GFR. Performed By: #### 2 4321-2 ####[facility] Analyze Re LABCLIA [id number] [place] [id number] [place] Glucose [Mass/Vol] 152 mg/dL High 74-99 [facility] Comment on above: Order Comment: Luz vaughan Type: BLOOD SPECIMENOrdering Facility: [facility] Address: [address] [place] [address] Result Comment: The [place] Diabetes Association (ADA) provides guidance for cutoff values for fasting glucose and random glucose. The ADA defines fasting as no caloric intake for at least 8 hours. Fasting plasma glucose results between 100 to 125 mg/dL indicate increased risk for diabetes (prediabetes).Fasting plasma glucose results greater than or equal to 126 mg/dL meet the criteria for diagnosis of diabetes. In the absence of unequivocal hyperglycemia, results should be confirmed by repeat testing. In a patient with classic symptoms of hyperglycemia or hyperglycemic crisis, random plasma glucose results greater than or equal to 200 mg/dL meet the criteria for diagnosis of diabetes.Reference: Standards of Medical Care in Diabetes 2016, [place] [employer]. Diabetes Care. 2016.39(Suppl 1). Performed By: #### 2 4321-2 ####[facility] [place] LABCLIA [id number] [facility] [place] [address] [place] Potassium [Moles/Vol] 5.0 mmol/L Normal 3.7-5.1 [facility] Comment on above: Order Comment: Speci men Type: BLOOD SPECIMENOrdering Facility: [facility] Address: [address] [place] [address] Performed By: #### 2 4321-2 ####[facility] [place] LABCLIA [id number] [place] [address] [place] Sodium [Moles/Vol] 141 mmol/L Normal 136-144 [facility] Comment on above: Order Comment: Speci men Type: BLOOD SPECIMENOrdering Facility: [facility] Address: [address] [place] [address] Performed By: #### 2 4321-2 ####[facility] [place] LABCLIA [id number] [place] [address] [place] Urea nitrogen [Mass/Vol] 44 mg/dL High 9-24 [facility] Comment on above: Order Comment: Speci men Type: BLOOD SPECIMENOrdering Facility: [facility] Address: [address] [place] [address] Performed By: #### 2 4321-2 ####[facility] [place] LABCLIA [id number] [place] [address] [place] Basic metabolic 2000 panelon 06-02-2023 Anion gap [Moles/Vol] 11 mmol/L Normal 9-18 [facility] Comment on above: Order Comment: Speci men Type: BLOOD SPECIMENOrdering Facility: [facility] Address: [address] [place] [address] Performed By: #### 2 4321-2 ####[facility] [place] LABCLIA [id number] [place] [address] [place] Calcium [Mass/Vol] 8.9 mg/dL Normal 8.5-10.2 [facility] Comment on above: Order Comment: Speci men Type: BLOOD SPECIMENOrdering Facility: [facility] Address: [address] [place] [address] Performed By: #### 2 4321-2 ####[facility] [place] LABCLIA [id number] [place] [address] [place] Chloride [Moles/Vol] 104 mmol/L Normal 97-105 [facility] Comment on above: Order Comment: Speci men Type: BLOOD SPECIMENOrdering Facility: [facility] Address: [address] [place] [address] Performed By: #### 2 4321-2 ####[facility] LABCLIA [id number] [place] [address] [place] CO2 [Moles/Vol] 27 mmol/L Normal 22-30 [facility] Comment on above: Order Comment: Speci men Type: BLOOD SPECIMENOrdering Facility: [facility] Address: [address] [place] [address] Performed By: #### 2 4321-2 ####[facility] LABCLIA [id number] [place] [address] [place] Creatinine [Mass/Vol] 2.38 mg/dL High 0.73-1.22 [facility] Comment on above: Order Comment: Speci men Type: BLOOD SPECIMENOrdering Facility: [facility] Address: [address] [place] [address] Performed By: #### 2 4321-2 ####[facility] LABCLIA [id number] [place] [address] [facility] Creatinine and Glomerular filtration rate.predicted panel (S/P/Bld) 30 mL/min/1.73m??? Low >=60 [facility] Comment on above: Order Comment: Speci men Type: BLOOD SPECIMENOrdering Facility: [facility] Address: [address] [place] [address] Result Comment: Breanne mated Glomerular Filtration Rate (eGFR) is calculated using the 2020 CKD-EPI creatinine equation. This equation utilizes serum creatinine, sex, and age as parameters. The creatinine assay has traceable calibration to isotope dilution-mass spectrometry. Refer to KDIGO guidelines for clinical interpretation. In patients with unstable renal function, e.g. those with acute kidney injury, the eGFR may not accurately reflect actual GFR. Performed By: #### 2 4321-2 ####[facility] [employer] LABCLIA [id number] [place] [address] [place] Glucose [Mass/Vol] 146 mg/dL High 74-99 [facility] Comment on above: Order Comment: Luz vaughan Type: BLOOD SPECIMENOrdering Facility: [facility] Address: [address] [place] [address] Result Comment: The [place] Diabetes Association (ADA) provides guidance for cutoff values for fasting glucose and random glucose. The ADA defines fasting as no caloric intake for at least 8 hours. Fasting plasma glucose results between 100 to 125 mg/dL indicate increased risk for diabetes (prediabetes).Fasting plasma glucose results greater than or equal to 126 mg/dL meet the criteria for diagnosis of diabetes. In the absence of unequivocal hyperglycemia, results should be confirmed by repeat testing. In a patient with classic symptoms of hyperglycemia or hyperglycemic crisis, random plasma glucose results greater than or equal to 200 mg/dL meet the criteria for diagnosis of diabetes.Reference: Standards of Medical Care in Diabetes 2016, [place] [employer]. Diabetes Care. 2016.39(Suppl 1). Performed By: #### 2 4321-2 ####[facility] Analyze ReI LABCLIA [id number] [place] [address] [place] Potassium [Moles/Vol] 5.3 mmol/L High 3.7-5.1 [facility] Comment on above: Order Comment: Luz vaughan Type: BLOOD SPECIMENOrdering Facility: [facility] Address: [address] [id number] Performed By: #### 2 4321-2 ####[facility] [place] LABCLIA [id number] [place] [address] [place] Sodium [Moles/Vol] 142 mmol/L Normal 136-144 [facility] Comment on above: Order Comment: Luz vaughan Type: BLOOD SPECIMENOrdering Facility: [facility] Address: [address] [place] [address] Performed By: #### 2 4321-2 ####[facility] [place] LABCLIA [id number] [place] [address] [place] Urea nitrogen [Mass/Vol] 48 mg/dL High 9-24 [facility] Comment on above: Order Comment: Speci men Type: BLOOD SPECIMENOrdering Facility: [facility] Address: [address] [place], [place] [address] Performed By: #### 2 4321-2 ####[facility] [place] LABCLIA [id number] [place] [address] [facility] [place] THERAPY NTon 06-02-2023 THERAPY NT Normal [facility] THERAPY NT Normal [facility] THERAPY NTon 06-01-2023 THERAPY NT Normal [facility] THERAPY NT Normal [facility] THERAPY NT Normal [facility] NURSING PROGon 05-31-2023 NURSING PROG Normal [facility] SOCIAL WORKon 05-31-2023 SOCIAL WORK Normal [facility] THERAPY NTon 05-31-2023 THERAPY NT Normal [facility] THERAPY NT Normal [facility] THERAPY NT Normal [facility] THERAPY NT Normal [facility] Basic metabolic 2000 panelon 05-30-2023 Anion gap [Moles/Vol] 10 mmol/L Normal 9-18 [facility] Comment on above: Order Comment: Speci men Type: BLOOD SPECIMENOrdering Facility: [facility] Address: [address] [place] [address] Performed By: #### 2 4321-2 ####[facility] [place] LABCLIA [id number] [place] [address] [place] Calcium [Mass/Vol] 8.4 mg/dL Low 8.5-10.2 [facility] Comment on above: Order Comment: Speci men Type: BLOOD SPECIMENOrdering Facility: [facility] Address: [address] [place] [address] Performed By: #### 2 4321-2 ####[facility] [place] LABCLIA [id number] [place] [address] [place] Chloride [Moles/Vol] 103 mmol/L Normal 97-105 [facility] Comment on above: Order Comment: Speci men Type: BLOOD SPECIMENOrdering Facility: [facility] Address: [address] [place] [address] Performed By: #### 2 4321-2 ####[facility] [place] LABCLIA [id number] [place] [address] [place] CO2 [Moles/Vol] 23 mmol/L Normal 22-30 [facility] Comment on above: Order Comment: Speci men Type: BLOOD SPECIMENOrdering Facility: [facility] Address: [address] [place] [address] Performed By: #### 2 4321-2 ####[facility] LABCLIA [id number] [place] [address] [place] Creatinine [Mass/Vol] 2.34 mg/dL High 0.73-1.22 [facility] Comment on above: Order Comment: Speci men Type: BLOOD SPECIMENOrdering Facility: [facility] Address: [address] [place] [address] Performed By: #### 2 4321-2 ####[facility] LABCLIA [id number] [place] [address] [facility] Creatinine and Glomerular filtration rate.predicted panel (S/P/Bld) 30 mL/min/1.73m??? Low >=60 [facility] Comment on above: Order Comment: Speci men Type: BLOOD SPECIMENOrdering Facility: [facility] Address: [address] [place] [address] Result Comment: Breanne mated Glomerular Filtration Rate (eGFR) is calculated using the 2020 CKD-EPI creatinine equation. This equation utilizes serum creatinine, sex, and age as parameters. The creatinine assay has traceable calibration to isotope dilution-mass spectrometry. Refer to KDIGO guidelines for clinical interpretation. In patients with unstable renal function, e.g. those with acute kidney injury, the eGFR may not accurately reflect actual GFR. Performed By: #### 2 4321-2 ####[facility] LABCLIA [id number] [place] [address] [place] Glucose [Mass/Vol] 242 mg/dL High 74-99 [facility] Comment on above: Order Comment: Speci men Type: BLOOD SPECIMENOrdering Facility: [facility] Address: [address] [place] [address] Result Comment: The [place] Diabetes [employer] (ADA) provides guidance for cutoff values for fasting glucose and random glucose. The ADA defines fasting as no caloric intake for at least 8 hours. Fasting plasma glucose results between 100 to 125 mg/dL indicate increased risk for diabetes (prediabetes).Fasting plasma glucose results greater than or equal to 126 mg/dL meet the criteria for diagnosis of diabetes. In the absence of unequivocal hyperglycemia, results should be confirmed by repeat testing. In a patient with classic symptoms of hyperglycemia or hyperglycemic crisis, random plasma glucose results greater than or equal to 200 mg/dL meet the criteria for diagnosis of diabetes.Reference: Standards of Medical Care in Diabetes 2016, [place] [employer]. Diabetes Care. 2016.39(Suppl 1). Performed By: #### 2 4321-2 ####[facility] LABCLIA [id number] [place] [address] [place] Potassium [Moles/Vol] 4.9 mmol/L Normal 3.7-5.1 [facility] Comment on above: Order Comment: Speci men Type: BLOOD SPECIMENOrdering Facility: [facility] Address: [address] [place] [address] Performed By: #### 2 4321-2 ####[facility] LABCLIA [id number] [place] [address] [place] Sodium [Moles/Vol] 136 mmol/L Normal 136-144 [facility] Comment on above: Order Comment: Speci men Type: BLOOD SPECIMENOrdering Facility: [facility] Address: [address] [place] [address] Performed By: #### 2 4321-2 ####[facility] LABCLIA [id number] [place] [address] [place] Urea nitrogen [Mass/Vol] 49 mg/dL High 9-24 [facility] Comment on above: Order Comment: Speci men Type: BLOOD SPECIMENOrdering Facility: [facility] Address: [address] [place] [address] Performed By: #### 2 4321-2 ####[facility] [place] LABCLIA [id number] [place] [address] [facility] CASE MGT INIT ASSESon 2023 CASE MGT INIT ASSES Normal [facility] CBC panel Auto (Bld)on 05-30 Erythrocyte distribution width (RBC) [Ratio] 13.3 % Normal 11.5-15.0 [facility] Comment on above: Order Comment: Speci men Type: BLOOD SPECIMENOrdering Facility: [facility] Address: [address] [place] [address] Performed By: #### 5 8410-2 ####[facility] LABCLIA [id number] [place] [address] [place] Hematocrit (Bld) [Volume fraction] 34.3 % Low 39.0-51.0 [facility] Comment on above: Order Comment: Speci men Type: BLOOD SPECIMENOrdering Facility: [facility] Address: [address] [place] [address] Performed By: #### 5 8410-2 ####[facility] LABCLIA [id number] [place] [address] [place] Hemoglobin (Bld) [Mass/Vol] 11.1 g/dL Low 13.0-17.0 [facility] Comment on above: Order Comment: Speci men Type: BLOOD SPECIMENOrdering Facility: [facility] Address: [address] [place] [address] Performed By: #### 5 8410-2 ####[facility] [place] LABCLIA [id number] [place] [address] [place] MCH (RBC) [Entitic mass] 29.4 pg Normal 26.0-34.0 [facility] Comment on above: Order Comment: Speci men Type: BLOOD SPECIMENOrdering Facility: [facility] Address: [address] [place] [address] Performed By: #### 5 8410-2 ####[facility] LABCLIA [id number] [place] [address] [place] MCHC (RBC) [Mass/Vol] 32.4 g/dL Normal 30.5-36.0 [facility] Comment on above: Order Comment: Speci men Type: BLOOD SPECIMENOrdering Facility: [facility] Address: [address] [place] [address] Performed By: #### 5 8410-2 ####[facility] LABCLIA [id number] [place] [address] [place] MCV (RBC) [Entitic vol] 91.0 fL Normal 80.0-100.0 [facility] Comment on above: Order Comment: Speci men Type: BLOOD SPECIMENOrdering Facility: [facility] Address: [address] [place] [address] Performed By: #### 5 8410-2 ####[facility] LABCLIA [id number] [place] [address] [facility] Platelet mean volume (Bld) [Entitic vol] 9.7 fL Normal 9.0-12.7 [facility] Comment on above: Order Comment: Speci men Type: BLOOD SPECIMENOrdering Facility: [facility] Address: [address] [place] [address] Performed By: #### 5 8410-2 ####[facility] LABCLIA [id number] [place] [address] [facility] Platelets (Bld) [#/Vol] 225 10*3/uL Normal 150-400 [facility] Comment on above: Order Comment: Speci men Type: BLOOD SPECIMENOrdering Facility: [facility] Address: [address] [place] [address] Performed By: #### 5 8410-2 ####[facility] LABCLIA [id number] [place] [address] [place] RBC (Bld) [#/Vol] 3.77 10*6/uL Low 4.20-6.00 [facility] Comment on above: Order Comment: Speci men Type: BLOOD SPECIMENOrdering Facility: [facility] Address: [address] [place] [address] Performed By: #### 5 8410-2 ####[facility] LABCLIA [id number] [place] [address] [place] WBC (Bld) [#/Vol] 3.75 10*3/uL Normal 3.70-11.00 [facility] Comment on above: Order Comment: Speci men Type: BLOOD SPECIMENOrdering Facility: [facility] Address: [address] [place] [address] Performed By: #### 5 8410-2 ####[facility] LABCLIA [id number] [place] [address] [place] NURSING PROGon 05-30-2023 NURSING PROG Normal [facility] SOCIAL WORKon 05-30-2023 SOCIAL WORK Normal [facility] SOCIAL WORK Normal [facility] THERAPY NTon 05-30-2023 THERAPY NT Normal [facility] THERAPY NT Normal [facility] ALLIED HEALTHon 05-29-2023 ALLIED HEALTH Normal [facility] CBC panel Auto (Bld)on 05-29 Erythrocyte distribution width (RBC) [Ratio] 13.4 % Normal 11.5-15.0 [facility] Comment on above: Order Comment: Speci men Type: BLOOD SPECIMENOrdering Facility: [facility] Address: [address] [place] [address] Performed By: #### 5 8410-2 ####[facility] LABCLIA [id number] [place] [address] [facility] Hematocrit (Bld) [Volume fraction] 35.9 % Low 39.0-51.0 [facility] Comment on above: Order Comment: Speci men Type: BLOOD SPECIMENOrdering Facility: [facility] Address: [address] [place] [address] Performed By: #### 5 8410-2 ####[facility] LABCLIA [id number] [place] [address] [facility] Hemoglobin (Bld) [Mass/Vol] 11.4 g/dL Low 13.0-17.0 [facility] Comment on above: Order Comment: Speci men Type: BLOOD SPECIMENOrdering Facility: [facility] Address: [address] [place] [address] Performed By: #### 5 8410-2 ####[facility] LABCLIA [id number] [place] [address] [place] MCH (RBC) [Entitic mass] 28.9 pg Normal 26.0-34.0 [facility] Comment on above: Order Comment: Speci men Type: BLOOD SPECIMENOrdering Facility: [facility] Address: [address] [place] [address] Performed By: #### 5 8410-2 ####[facility] LABCLIA [id number] [address] [place] MCHC (RBC) [Mass/Vol] 31.8 g/dL Normal 30.5-36.0 [facility] Comment on above: Order Comment: Speci men Type: BLOOD SPECIMENOrdering Facility: [facility] Address: [address] [place] [address] Performed By: #### 5 8410-2 ####[facility] LABCLIA [id number] [place] [address] [place] MCV (RBC) [Entitic vol] 90.9 fL Normal 80.0-100.0 [facility] Comment on above: Order Comment: Speci men Type: BLOOD SPECIMENOrdering Facility: [facility] Address: [address] [place] [address] Performed By: #### 5 8410-2 ####[facility] LABCLIA [id number] [place] [address] [place] Platelet mean volume (Bld) [Entitic vol] 9.3 fL Normal 9.0-12.7 [facility] Comment on above: Order Comment: Speci men Type: BLOOD SPECIMENOrdering Facility: [facility] Address: [address] [place] [address] Performed By: #### 5 8410-2 ####[facility] [place] LABCLIA [id number] [place] [address] [place] Platelets (Bld) [#/Vol] 221 10*3/uL Normal 150-400 [facility] Comment on above: Order Comment: Speci men Type: BLOOD SPECIMENOrdering Facility: [facility] Address: [address] [place] [address] Performed By: #### 5 8410-2 ####[facility] LABCLIA [id number] [place] [facility] [address] [place] RBC (Bld) [#/Vol] 3.95 10*6/uL Low 4.20-6.00 [facility] Comment on above: Order Comment: Speci men Type: BLOOD SPECIMENOrdering Facility: [facility] Address: [address] [place] [address] Performed By: #### 5 8410-2 ####[facility] [place] LABCLIA [id number] [facility] [place] [address] [place] WBC (Bld) [#/Vol] 4.62 10*3/uL Normal 3.70-11.00 [facility] Comment on above: Order Comment: Speci men Type: BLOOD SPECIMENOrdering Facility: [facility] Address: [address] [place] [address] Performed By: #### 5 8410-2 ####[facility] [place] LABCLIA [id number] [place] [address] [facility] Comprehensive metabolic 2000 panelon 05-29-2023 Albumin [Mass/Vol] 2.9 g/dL Low 3.9-4.9 [facility] Comment on above: Order Comment: Speci men Type: BLOOD SPECIMENOrdering Facility: [facility] Address: [address] [place] [address] Performed By: #### 2 4323-8 ####[facility] [place] LABCLIA [id number] [place] [address] [place] ALP [Catalytic activity/Vol] 109 U/L Normal 38-113 [facility] Comment on above: Order Comment: Speci men Type: BLOOD SPECIMENOrdering Facility: [facility] Address: [address] [place] [address] Performed By: #### 2 4323-8 ####[facility] [place] LABCLIA [id number] [place] [facility] [address] [place] ALT With P-5'-P [Catalytic activity/Vol] 11 U/L Normal 10-54 [facility] Comment on above: Order Comment: Speci men Type: BLOOD SPECIMENOrdering Facility: [facility] Address: [address] [place] [address] Performed By: #### 2 4323-8 ####[facility] [place] LABCLIA [id number] [place] [facility] [address] [place] Anion gap [Moles/Vol] 10 mmol/L Normal 9-18 [facility] Comment on above: Order Comment: Speci men Type: BLOOD SPECIMENOrdering Facility: [facility] Address: [address] [place] [address] Performed By: #### 2 4323-8 ####[facility] [place] LABCLIA [id number] [place] [address] [place] AST With P-5'-P [Catalytic activity/Vol] 13 U/L Low 14-40 [facility] Comment on above: Order Comment: Speci men Type: BLOOD SPECIMENOrdering Facility: [facility] Address: [address] [place] [address] Performed By: #### 2 4323-8 ####[facility] [place] LABCLIA [id number] [place] [address] [place] Bilirubin [Mass/Vol] 0.3 mg/dL Normal 0.2-1.3 [facility] Comment on above: Order Comment: Speci men Type: BLOOD SPECIMENOrdering Facility: [facility] Address: [address] [place] [address] Performed By: #### 2 4323-8 ####[facility] [place] LABCLIA [id number] [place] [facility] [address] [place] Calcium [Mass/Vol] 8.7 mg/dL Normal 8.5-10.2 [facility] Comment on above: Order Comment: Speci men Type: BLOOD SPECIMENOrdering Facility: [facility] Address: [address] [place] [address] Performed By: #### 2 4323-8 ####[facility] [place] LABCLIA [id number] [facility] [place] [address] [place] Chloride [Moles/Vol] 104 mmol/L Normal 97-105 [facility] Comment on above: Order Comment: Speci men Type: BLOOD SPECIMENOrdering Facility: [facility] Address: [address] [place] [address] Performed By: #### 2 4323-8 ####[facility] [place] LABCLIA [id number] [facility] [place] [address] [place] CO2 [Moles/Vol] 24 mmol/L Normal 22-30 [facility] Comment on above: Order Comment: Speci men Type: BLOOD SPECIMENOrdering Facility: [facility] Address: [address] [place] [address] Performed By: #### 2 4323-8 ####[facility] [place] LABCLIA [id number] [facility] [place] [address] [place] Creatinine [Mass/Vol] 2.49 mg/dL High 0.73-1.22 [facility] Comment on above: Order Comment: Speci men Type: BLOOD SPECIMENOrdering Facility: [facility] Address: [address] [place] [address] Performed By: #### 2 4323-8 ####[facility] LABCLIA [id number] [place] [address] [place] Creatinine and Glomerular filtration rate.predicted panel (S/P/Bld) 28 mL/min/1.73m??? Low >=60 [facility] Comment on above: Order Comment: Luz vaughan Type: BLOOD SPECIMENOrdering Facility: [facility] Address: [address] [place] [address] Result Comment: Breanne mated Glomerular Filtration Rate (eGFR) is calculated using the 2020 CKD-EPI creatinine equation. This equation utilizes serum creatinine, sex, and age as parameters. The creatinine assay has traceable calibration to isotope dilution-mass spectrometry. Refer to KDIGO guidelines for clinical interpretation. In patients with unstable renal function, e.g. those with acute kidney injury, the eGFR may not accurately reflect actual GFR. Performed By: #### 2 4323-8 ####[facility] Analyze Re LABIA [id number] [place] [id number] [place] Glucose [Mass/Vol] 240 mg/dL High 74-99 [facility] Comment on above: Order Comment: Luz vaughan Type: BLOOD SPECIMENOrdering Facility: [facility] Address: [address] [place] [address] Result Comment: The [place] Diabetes [employer] (ADA) provides guidance for cutoff values for fasting glucose and random glucose. The ADA defines fasting as no caloric intake for at least 8 hours. Fasting plasma glucose results between 100 to 125 mg/dL indicate increased risk for diabetes (prediabetes).Fasting plasma glucose results greater than or equal to 126 mg/dL meet the criteria for diagnosis of diabetes. In the absence of unequivocal hyperglycemia, results should be confirmed by repeat testing. In a patient with classic symptoms of hyperglycemia or hyperglycemic crisis, random plasma glucose results greater than or equal to 200 mg/dL meet the criteria for diagnosis of diabetes.Reference: Standards of Medical Care in Diabetes 2016, [place] [employer]. Diabetes Care. 2016.39(Suppl 1). Performed By: #### 2 4323-8 ####[facility] Analyze [facility] LABCLIA [id number] [place] [address] [place] Potassium [Moles/Vol] 6.0 mmol/L High 3.7-5.1 [facility] Comment on above: Order Comment: Speci men Type: BLOOD SPECIMENOrdering Facility: [facility] Address: [address] [place] [address] Performed By: #### 2 4323-8 ####[facility] [place] LABCLIA [id number] [place] [address] [place] Protein [Mass/Vol] 5.6 g/dL Low 6.3-8.0 [facility] Comment on above: Order Comment: Speci men Type: BLOOD SPECIMENOrdering Facility: [facility] Address: [address] [place] [address] Performed By: #### 2 4323-8 ####[facility] [place] LABCLIA [id number] [place] [address] [place] Sodium [Moles/Vol] 138 mmol/L Normal 136-144 [facility] Comment on above: Order Comment: Speci men Type: BLOOD SPECIMENOrdering Facility: [facility] Address: [address] [place] [address] Performed By: #### 2 4323-8 ####[facility] [place] LABCLIA [id number] [place] [address] [place] Urea nitrogen [Mass/Vol] 54 mg/dL High 9-24 [facility] Comment on above: Order Comment: Speci men Type: BLOOD SPECIMENOrdering Facility: [facility] Address: [address] [place] [address] Performed By: #### 2 4323-8 ####[facility] [place] LABCLIA [id number] [place] [address] [place] NUTRITIONon 05-29-2023 NUTRITION Normal [facility] POTASSIUM BLDon 05-29-2023 Potassium [Moles/Vol] 4.6 mmol/L Normal 3.7-5.1 [facility] Comment on above: Order Comment: Speci men Type: BLOOD SPECIMENOrdering Facility: [facility] Address: [address] [place] [address] Performed By: #### K 1 ####[facility] LABCLMI [id number] [place] [address] [place] PT EDon 05-29-2023 PT ED Normal [facility] THERAPY NTon 05-29-2023 THERAPY NT Normal [facility] THERAPY NT Normal [facility] US DVT UPPER LTon 05-29-2023 US DVT UPPER LT Normal [facility] US EXT MASS/FLUID COLLECTION LTon 05-29-2023 US EXT MASS/FLUID COLLECTION LT Normal [facility] CONSULT PROGon 05-28-2023 CONSULT PROG Normal [facility] NURSING PROGon 05-28-2023 NURSING PROG Normal [facility] THERAPY NTon 05-28-2023 THERAPY NT Normal [facility] HISTORY PHYSICALon HISTORY PHYSICAL Normal [facility] THERAPY NTon 05-27-2023 THERAPY NT Normal [facility] THERAPY NT Normal [facility] NURSING PROGon 05-26-2023 NURSING PROG Normal [facility] CNPTOUTREACHon 05-23-2023 CNPTOUTREACH Normal [facility] GLUCOSE, BLOOD (POC)on 05-23 Glucose [Mass/Vol] 444 mg/dL Abnormal 74 - 99 mg/dL [facility] HEMOGLOBIN A1C (POC)on 05-23 HbA1c (Bld) [Mass fraction] 13.9 % Abnormal 4.3 - 5.6 % [facility] CNPTOUTREACHon 05-19-2023 CNPTOUTREACH Normal [facility] ECHOon 12-01-2022 [facility] NM CARDIAC PERF STRESS/PHARM on 12-01-2022 [facility] IR INJ PROC FOR HIP ARTHOGRA M (AK)on 08-30-2022 [facility] HEMOGLOBIN A1C (POC)on 06-29 HbA1c (Bld) [Mass fraction] 8.9 % Abnormal 4.2 - 5.6 % [facility] CBC W Auto Differential pane l (Bld)on 06-01-2022 Basophils (Bld) [#/Vol] 0.03 10*3/uL <0.11 k/uL [facility] Basophils/100 WBC (Bld) 0.4 % [facility] Differential cell count method Nom (Bld) Auto [facility] Eosinophils (Bld) [#/Vol] 0.14 10*3/uL <0.46 k/uL [facility] Eosinophils/100 WBC (Bld) 1.9 % [facility] Erythrocyte distribution width (RBC) [Ratio] 12.8 % 11.5 - 15.0 % [facility] Hematocrit (Bld) [Volume fraction] 44.6 % 39.0 - 51.0 % [facility] Hemoglobin (Bld) [Mass/Vol] 14.6 g/dL 13.0 - 17.0 g/dL [facility] Immature granulocytes (Bld) [#/Vol] 0.04 10*3/uL <0.10 k/uL [facility] Immature granulocytes/100 WBC (Bld) 0.5 % [facility] Lymphocytes (Bld) [#/Vol] 1.73 10*3/uL 1.00 - 4.00 k/uL [facility] Lymphocytes/100 WBC (Bld) 23.3 % [facility] MCH (RBC) [Entitic mass] 28.5 pg 26.0 - 34.0 pg [facility] MCHC (RBC) [Mass/Vol] 32.7 g/dL 30.5 - 36.0 g/dL [facility] MCV (RBC) [Entitic vol] 87.1 fL 80.0 - 100.0 fL [facility] Monocytes (Bld) [#/Vol] 0.55 10*3/uL <0.87 k/uL [facility] Monocytes/100 WBC (Bld) 7.4 % [facility] Neutrophils (Bld) [#/Vol] 4.92 10*3/uL 1.45 - 7.50 k/uL [facility] Neutrophils/100 WBC (Bld) 66.5 % [facility] Nucleated RBC (Bld) [#/Vol] <0.01 k/uL [facility] Nucleated RBC/100 WBC (Bld) [Ratio] 0.0 /100 WBC [facility] Platelet mean volume (Bld) [Entitic vol] 10.1 fL 9.0 - 12.7 fL [facility] Platelets (Bld) [#/Vol] 289 10*3/uL 150 - 400 k/uL [facility] RBC (Bld) [#/Vol] 5.12 10*6/uL 4.20 - 6.0 0 m/uL [facility] WBC (Bld) [#/Vol] 7.41 10*3/uL 3.70 - 11. 00 k/uL [facility] CEA BLDon 06-01-2022 Carcinoembryonic Ag [Mass/Vol] 3.7 ng/mL High <3.0 ng/mL [facility] Comprehensive metabolic 2000 panelon 06-01-2022 Albumin [Mass/Vol] 4.1 g/dL 3.9 - 4.9 g/dL [facility] ALP [Catalytic activity/Vol] 104 U/L 38 - 113 U/L [facility] ALT With P-5'-P [Catalytic activity/Vol] 16 U/L 10 - 54 U/L [facility] Anion gap [Moles/Vol] 9 mmol/L 9 - 18 mmol/L [facility] AST With P-5'-P [Catalytic activity/Vol] 14 U/L 14 - 40 U/L [facility] Bilirubin [Mass/Vol] 0.3 mg/dL 0.2 - 1 .3 mg/dL [facility] Calcium [Mass/Vol] 10.6 mg/dL High 8.5 - 10. 2 mg/dL [facility] Chloride [Moles/Vol] 102 mmol/L 97 - 10 5 mmol/L [facility] CO2 [Moles/Vol] 29 mmol/L 22 - 30 mmol/L [facility] Creatinine [Mass/Vol] 1.69 mg/dL High 0.73 - 1.22 mg/dL [facility] Estimated Glomerular Filtration Rate 45 mL/min/1.73m Low >=60 mL/min/1.73m [facility] Glucose [Mass/Vol] 215 mg/dL High 74 - 99 mg/dL [facility] Potassium [Moles/Vol] 5.8 mmol/L High 3.7 - 5.1 mmol/L [facility] Protein [Mass/Vol] 6.6 g/dL 6.3 - 8.0 g/dL [facility] Sodium [Moles/Vol] 140 mmol/L 136 - 144 mmol/L [facility] Urea nitrogen [Mass/Vol] 39 mg/dL High 9 - 24 mg/dL [facility] GLUCOSE, BLOOD (POC)on 05-18 Glucose [Mass/Vol] 196 mg/dL Abnormal 74 - 99 mg/dL [facility] HEMOGLOBIN A1C (POC)on 05-18 HbA1c (Bld) [Mass fraction] 9.7 % Abnormal 4.2 - 5.6 % [facility] GLUCOSE, BLOOD (POC)on 04-13 Glucose [Mass/Vol] 234 mg/dL Abnormal 74 - 99 mg/dL [facility] HEMOGLOBIN A1C (POC)on 04-13 HbA1c (Bld) [Mass fraction] 10.5 % Abnormal 4.2 - 5.6 % [facility] GLUCOSE, BLOOD (POC)on 03-01 Glucose [Mass/Vol] 384 mg/dL Abnormal 74 - 99 mg/dL [facility] HEMOGLOBIN A1C (POC)on 03-01 HbA1c (Bld) [Mass fraction] 10.7 % Abnormal 4.2 - 5.6 % [facility] CASE MANAGEMon 01-27-2022 CASE MANAGEM HNO ID: [id number] Author: OSCAR Loepz Service: Social Work Author Type: Finishing Room Operator Type: Care Mgt Progress Note Filed: 01/27/2022 12:32 PM Note Text: BEHAVIORAL HEALTH SOCIAL WORK DISCHARGE NOTE SERVICE DATE: 01/27/2022 SERVICE TIME: 8:58 AM Discharge Information Row Name Admission (Current) from 01/20/2022 in [facility] 6D Psychiatry Follow-Up Appointment Psychiatrist Name Deb Gomez [facility] Address / Phone # [address] [place] [address] / Appointment Date 02/11/22 Appointment Time 8:30AM Additional Instructions Bring insurnance card and photo ID. The office is located on the 4th floor of the health and social [facility] ([facility]). Discharge Disposition Discharge Disposition Skilled Care Usp Usp Referral Information Agency Name [facility] Address [address] , [place] [address] Additional Discharge Information Additional Discharge Resources [facility], 6D, Additional Discharge Follow Up Information Once pt is ready for discharge from SNF, please provide pt with transportation back to [facility] to seed cone picker his car from the parking lot. Patient/Social Media Senior Associate Agreeable With Discharge Plan: Yes FREEDOM OF CHOICE EXPLAINED? [facility]-owned/affiliated facilities and agencies have been identified Patient/Social Media Senior Associate Given/Explained Medicare Discharge Notice (IM letter): Patient Refused/Declined (Date and Time): 01/27/2022 TRANSPORTATION ARRANGEMENTS: [facility] PRESCRIPTIONS FILLED PRIOR TO DISCHARGE: No, patient discharged to [facility] ADDITIONAL NOTES: Final arrangements made for pt's discharge today. The pt is aware and agreeable with discharge plans. Update provided to the facility. The pt's car will remain in hospital parking lot. The facility will arrange transportation for pt to return to [facility] to seed cone picker his car once SNF stay is complete. Hospital police/security team are aware. SIGNATURE: AMERICA Lopez LSW PATIENT NAME: José Manuel Ashton DATE: January 27, 2022 TIME: 8:58 AM [facility] 01-27-2022 [facility] HNO ID: [id number] Author: Luis Carlos Short Jr., MD Service: Psychiatry Author Type: Physician Type: Discharge Summary Filed: 01/27/2022 9:50 AM Note Text: DISCHARGE SUMMARY BEHAVIORAL HEALTH PATIENT NAME: José Manuel Ashton ADMISSION DATE: 01/20/2022 DISCHARGE DATE: 01/27/2022 ATTENDING PHYSICIAN: Luis Carlos Short Jr., MD Code Status: Not on file Highest Readmission Risk Score: 29 The 30 day readmissions risk score is derived from an internally validated risk model which evaluates patient level characteristics, utilization history, medication orders and lab results up until the day of discharge. Patients with a score of 40 or above are considered highest risk for readmission. Specific patient level drivers will be listed at the bottom of the summary. 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 OPERATIONS DURING HOSPITALIZATION: None PROCEDURES DURING HOSPITALIZATION: No procedures performed HOSPITAL COURSE: Effexor was added for depression and anxiety. Depakote was added for mood instability and irritability. Group therapy, PT, OT, music and art therapy, and individual therapy were provided. Chest xray and Covid testing were negative on 01/26 after cough and fatigue developed. Feeling physically and emotionally improved, discharge to retirement facility on 01/27/22 was activated. Suicide risk was felt to be low across admission and adherence with medications and medical treatments improved significantly. Medical care was provided by Dr. Orantes. CONSULTING TEAMS DURING HOSPITALIZATION: Internal Medicine: Disha Treatment Team: Attending Provider: Luis Carlos Short Jr., MD Consulting: Suzan Orantes Consulting: Kylah Orantes MD Consulting: Juanpablo Curtis MD Consulting: Park Bobo DPM Consulting: Collin Cheema DO PATIENT CONDITION AT DISCHARGE: Improved DISCHARGE DISPOSITION: [facility] Facility COMPLICATIONS: None At this time the patient has maximized his benefit from hospitalization.. The patient denies suicidal or homicidal ideation, intent or plan and is safe for discharge. The patient voices a readiness to transition to retirement care setting, and has agreed to our follow-up recommendations including medication compliance. SUBJECTIVE: Eating breakfast, feels improved, breathing easier, cough reduced. Pleased with discharge plan. No SI/HI elicited. Improved future orientation and relationship with family. OBJECTIVE: As per MSE No PRN medications given past 24 hrs More alert today and affect improved, no irritability Transitions of Care Critical Issues: JIANG MEDICATION CHANGES: effexor and depakote added for mood disorder LABS AND PROCEDURES PENDING AT DISCHARGE: No pending results. Any PRN's required for agitation or anxiety since last encounter: No New problems on the unit since the last encounter: No Any new medication reactions since the last encounter: No BP 167/79 Pulse 90 Temp (Src) 97.7 (Oral) Resp 14 Ht 5' 10" (1.78m) Wt 255 lb 0.3 oz (115.7kg) SpO2 97% BMI 36.59 kg/(m2). MENTAL STATUS EXAM AT DISCHARGE: Appearance: Casually dressed, Appears stated age, and Overweight Behavior: Appropriate and cooperative, calm, sociable. Orientation: Person, Place, Time and Situation Speech/Language: The patient demonstrates appropriate tone, prosody, melody, phonetics, and syntax and more output today. Mood/Affect: Appropriate and Euthymic Thought/Form: Coherent and Rational Thought Content: Coherent Delusions: None noted Hallucinations: None Suicidal Ideations: No suicidal ideation, intent or plan. Homicidal Ideations: No homicidal ideation, intent or plan. Insight: Recognizes presence of illness, Recognizes responsibility of one's behavior, and Fair Judgment: Fair Memory/Cognition: Intact Psychomotor: mild slowing no EPS, improved tone vs prior GENERAL: Alert, no distress, cooperative. NEUROLOGIC: No gross abnormal findings including cranial nerves 2-12. MUSCULOSKELETAL: Normal muscle strength, Normal muscle tone and No involuntary movements. LABORATORY DATA: The laboratory/imaging results have been reviewed. Pertinent findings since the last assessment: Yes, CXR 01/26/22 - Stable exam with no acute radiographic abnormality. TREATMENT PLAN: 1. Biological Management: continue medications, further DM management at SNF, therapeutic drug monitoring at [facility] for depakote 2. Psychological Management Recommendations: jayla (more content not included)... [facility] NURSING PROGon 01-27-2022 NURSING PROG HNO ID: [id number] Author: Huong Glass RN Service: Nursing Author Type: Counselor Type: Nursing Progress Note Filed: 01/27/2022 12:25 PM Note Text: [id number] Assumed care of pt awake in bed. Alert and oriented x 3 denies SI, HI, AVH. Complains of chronic back pain 6 out of 10 declines PRN Acetaminophen verbalizing ineffective. Medication compliant whole with water. SBA for transfers assist of one staff for ADL's. Pt calm and cooperative with hands on care, able to make needs known. Social with peers. Report called to Harish GARZA at [facility]. Pt left unit via stretcher at 1133. Safety precautions maintained. [facility] ALLIED HEALTHon 01-26-2022 ALLIED HEALTH HNO ID: [id number] Author: RT Juarez(R) Service: Radiology Author Type: Technologist Type: Allied Health Filed: 01/26/2022 10:57 AM Note Text: Radiology Service Progress Note PATIENT NAME: José Manuel Ashton DATE OF SERVICE: January 26, 2022 TIME: 10:57 AM PATIENT IDENTITY VERIFICATION COMPLETED USING TWO (2) IDENTIFIERS: Name and Date of confirmed by patient verbally and Name and Date of confirmed by identification band. FALL SCREENING: Has the patient had 2 falls in the last year or 1 fall with injury or currently using an Ambulatory Assistive Device (Walker, Cane, Wheelchair, Crutches, etc.)? Inpatient: Screened on floor PATIENT GENDER DATA: Male PATIENT RELEVANT IMPLANT DATA REVIEWED: Not Applicable RADIOLOGY DEPARTMENT: General X-ray: Exam(s) Completed: Chest X-Ray PERIPHERAL IV DATA: Not applicable SIGNED BY: Olga Deleon RT(R) January 26, 2022 10:57 AM Normal [facility] Basic metabolic 2000 panelon 01-26-2022 Anion gap [Moles/Vol] 6 mmol/L Low 9-18 [facility] Comment on above: Order Comment: Speci men Type: BLOOD SPECIMENOrdering Facility: [facility] Address: [address] [place] [address] Performed By: #### 1 9123-9, 52254-6, ####[facility]ORY[facility]IA [id number] [address] [address] [place] Calcium [Mass/Vol] 9.4 mg/dL Normal 8.5-10.2 [facility] Comment on above: Order Comment: Speci men Type: BLOOD SPECIMENOrdering Facility: [facility] Address: [address] [place], [place] [id number] Performed By: #### 1 9123-9, 43301-2, ####[facility]ORYCLIA [id number] [place] [id number] [place] Chloride [Moles/Vol] 99 mmol/L Normal 97-105 [facility] Comment on above: Order Comment: Speci men Type: BLOOD SPECIMENOrdering Facility: [facility] Address: [address] [place], [place] [address] Performed By: #### 1 9123-9, 57763-9, ####[facility]ORYCLIA [id number] [place] [id number] [place] CO2 [Moles/Vol] 31 mmol/L High 22-30 [facility] Comment on above: Order Comment: Speci men Type: BLOOD SPECIMENOrdering Facility: [facility] Address: [address] [place] [address] Performed By: #### 1 9123-9, 96515-6, 1987-08, ####[facility]ORYCLIA [id number] [place] [id number] [place] Creatinine [Mass/Vol] 1.19 mg/dL Normal 0.73-1.22 [facility] Comment on above: Order Comment: Speci men Type: BLOOD SPECIMENOrdering Facility: [facility] Address: [address] [place] [address] Performed By: #### 1 9123-9, 12922-3, ####[facility]ENTERCLIA [id number] [place] [id number] [place] ESTIMATED GLOMERULAR FILTRATION RATE 69 mL/min/1.73m??? Normal >=60 [facility] Comment on above: Order Comment: Speci men Type: BLOOD SPECIMENOrdering Facility: [facility] Address: [address] [place] [address] Result Comment: Breanne mated Glomerular Filtration Rate (eGFR) is calculated using the 2020 CKD-EPI creatinine equation. This equation utilizes serum creatinine, sex, and age as parameters. The creatinine assay has traceable calibration to isotope dilution-mass spectrometry. Refer to KDIGO guidelines for clinical interpretation. In patients with unstable renal function, e.g. those with acute kidney injury, the eGFR may not accurately reflect actual GFR. Performed By: #### 1 9123-9, 56711-7, 1987-08, ####[facility]ORYCLIA [id number] [place] [id number] [place] Glucose [Mass/Vol] 161 mg/dL High 74-99 [facility] Comment on above: Order Comment: Specjonas vaughan Type: BLOOD SPECIMENOrdering Facility: [facility] Address: [address] [place] [address] Result Comment: The [place] Diabetes Association (ADA) provides guidance for cutoff values for fasting glucose and random glucose. The ADA defines fasting as no caloric intake for at least 8 hours. Fasting plasma glucose results between 100 to 125 mg/dL indicate increased risk for diabetes (prediabetes). Fasting plasma glucose results greater than or equal to 126 mg/dL meet the criteria for diagnosis of diabetes. In the absence of unequivocal hyperglycemia, results should be confirmed by repeat testing. In a patient with classic symptoms of hyperglycemia or hyperglycemic crisis, random plasma glucose results greater than or equal to 200 mg/dL meet the criteria for diagnosis of diabetes. Reference: Standards of Medical Care in Diabetes 2016, [place] [employer] Association. Diabetes Care. 2016.39(Suppl 1). Performed By: #### 1 9123-9, 99859-0, ####[facility]ORYCLIA [id number] [place] [address] [place] Potassium [Moles/Vol] 5.0 mmol/L Normal 3.7-5.1 [facility] Comment on above: Order Comment: Luz clement Type: BLOOD SPECIMENOrdering Facility: [facility] Address: [address] [place] [address] Performed By: #### 1 9123-9, 61006-6, ####[facility]ORYCLIA [id number] [place] [address] [place] Sodium [Moles/Vol] 136 mmol/L Normal 136-144 [facility] Comment on above: Order Comment: Brooksjonas vaughan Type: BLOOD SPECIMENOrdering Facility: [facility] Address: [address] [place] [address] Performed By: #### 1 9123-9, 23545-2, 1987-08, ####[facility]ATORYCLIA [id number] [address] [place] [address] [place] Urea nitrogen [Mass/Vol] 26 mg/dL High 9-24 [facility] Comment on above: Order Comment: Speci men Type: BLOOD SPECIMENOrdering Facility: [facility] Address: [facility] [place] [address] Performed By: #### 1 9123-9, 76349-4, 1987-5, 04071-7 ####[facility]ORYCLIA [id number] [address] [place] [address] [facility] [place] CASE MANAGEMon 01-26-2022 CASE MANAGEM HNO ID: [id number] Author: OSCAR Lopez Service: Social Work Author Type: Finishing Room Operator Type: Care Mgt Progress Note Filed: 01/26/2022 5:01 PM Note Text: BEHAVIORAL HEALTH SOCIAL WORK PROGRESS NOTE SERVICE DATE: 01/26/2022 SERVICE TIME: 4:50 PM Pt's discharge today has been cancelled due to not being medically clear. This food writer was made aware today that pt's car is parked in the hospital parking lot. Informed pt his car will need to remain in parking lot until SNF stay is complete or he could make arrangements with family to seed cone picker the car. Pt appears frustrated, stating "I don't know what to do.". He reports "I don't have anyone to seed cone picker the car that knows how to drive in the city.". Pt agreeable to leaving his car in hospital parking lot if approved by hospital security team and if his ambulance ride to facility will be covered by insurance. [facility] contacted billing department (phone #: [phone]) for [facility] [employer]. According to their billing department, pt has Medicare and [place] Medicaid. Billing department reports "pt should not have a copay or any financial responsibility for ambulance ride.". [facility] informed pt of call with billing department. Pt remains agreeable to being transported to SNF by ambulance. Spoke with Officer Piter at [facility] police department. Discussed the above situation. Officer Piter agrees to allow pt's car to remain on hospital property until SNF stay is complete. [facility] provided officer Piter with pt's name, phone number, name of SNF, license plate number, color and make of vehicle ([employer]), and written reason for the request. Officer Piter will forward this information to fellow officers and security guards at [facility] police at [employer]. Update provided to [facility]. The social insurance analyst at the SNF will arrange transportation for pt to come back to [facility] to seed cone picker his car once SNF stay is complete. Given pt's history of cannabis use disorder, facility also requests for pt to sign a contact indicating he will refrain from using any unauthorized medications, alcohol, or drugs while at their facility. Received faxed copy of contract for pt to sign. SW will discuss and present contract to pt tomorrow morning. The plan is for pt to be discharged to [facility] tomorrow (01/27) at 11:00am via ambulance (Trip #: [id number]). SW will confirm discharge with facility tomorrow morning. PAS/determination results in pt's chart. SW will continue to follow. SIGNATURE: AMERICA Lopez, OSCAR PATIENT NAME: José Manuel Ashton DATE: January 26, 2022 TIME: 4:50 PM Normal [facility] CBC panel Auto (Bld)on 01-26 Erythrocyte distribution width (RBC) [Ratio] 13.0 % Normal 11.5-15.0 [facility] Comment on above: Order Comment: Speci men Type: BLOOD SPECIMEN [facility] Address: [address] [place] [address] Performed By: #### 5 8410-2 #### [facility] CLIA [id number] [address] [place] [address] [place] Hematocrit (Bld) [Volume fraction] 43.5 % Normal 39.0-51.0 [facility] Comment on above: Order Comment: Speci men Type: BLOOD SPECIMEN [facility] Address: [address] [place] [phone] Performed By: #### 5 8410-2 #### [facility] CLIA [id number] [address] [place] [address] [facility] Hemoglobin (Bld) [Mass/Vol] 14.1 g/dL Normal 13.0-17.0 [facility] Comment on above: Order Comment: Speci men Type: BLOOD SPECIMEN [facility] Address: [address] [place] [address] Performed By: #### 5 8410-2 #### [facility] CLIA [id number] [address] [place] [address] MCH (RBC) [Entitic mass] 29.0 pg Normal 26.0-34.0 [facility] Comment on above: Order Comment: Speci men Type: BLOOD SPECIMEN [facility] Address: [address] [place] [address] Performed By: #### 5 8410-2 #### [facility] [place] [id number] [address] [place] [address] MCHC (RBC) [Mass/Vol] 32.4 g/dL Normal 30.5-36.0 [facility] Comment on above: Order Comment: Speci men Type: BLOOD SPECIMEN [facility] Address: [address] [place] [address] Performed By: #### 5 8410-2 #### [facility] CLIA [id number] [address] [place] [address] [place] MCV (RBC) [Entitic vol] 89.5 fL Normal 80.0-100.0 [facility] Comment on above: Order Comment: Speci men Type: BLOOD SPECIMEN [facility] Address: [address] [place] [address] Performed By: #### 5 8410-2 #### [facility] CLIA [id number] [address] [place] [address] [place] Nucleated RBC (Bld) [#/Vol] 10*3/uL Normal <0.01 [facility] Comment on above: Order Comment: Speci men Type: BLOOD SPECIMEN [facility] Address: [address] [place], [place] [address] Performed By: #### 5 8410-2 #### [facility] CLIA [id number] [address] [place] [address] [place] Platelet mean volume (Bld) [Entitic vol] 9.3 fL Normal 9.0-12.7 [facility] Comment on above: Order Comment: Speci men Type: BLOOD SPECIMEN [facility]: [facility] Address: [address] [place], [place] [address] Performed By: #### 5 8410-2 #### [facility] CLIA [id number] [address] [place] [address] [place] Platelets (Bld) [#/Vol] 278 10*3/uL Normal 150-400 [facility] Comment on above: Order Comment: Speci men Type: BLOOD SPECIMEN [facility] Address: [address] [place] [address] Performed By: #### 5 8410-2 #### [facility] [place] [id number] [address] [place] [address] [place] RBC (Bld) [#/Vol] 4.86 10*6/uL Normal 4.20-6.00 [facility] Comment on above: Order Comment: Speci men Type: BLOOD SPECIMEN [facility] Address: [address] [place], [place] [address] Performed By: #### 5 8410-2 #### [facility] CLIA [id number] [address] [place], [place] [address] [place] WBC (Bld) [#/Vol] 5.07 10*3/uL Normal 3.70-11.00 [facility] Comment on above: Order Comment: Speci men Type: BLOOD SPECIMEN Ordering Facility: [facility] Address: [address] [place] [address] Performed By: #### 5 8410-2 #### [facility] CLIA [id number] [address] [place], [place] [address] [facility] CRP SerPl-mCncon 01-26-2022 CRP [Mass/Vol] 0.3 mg/dL Normal <0.9 [facility] Comment on above: Order Comment: Speci men Type: BLOOD SPECIMENOrdering Facility: [facility] Address: [address] [place], [place] [address] [address] Performed By: #### 1 9123-9, 82551-6, 1987-08, ####[facility] [id number] [address] Magnesium SerPl-ncon 01-26 Magnesium [Mass/Vol] 1.8 mg/dL Normal 1.7-2.3 [facility] Comment on above: Order Comment: Speci men Type: BLOOD SPECIMENOrdering Facility: [facility] Address: [address] [place] [address] Performed By: #### 1 9123-9, 65058-2, 1987-08, ####[facility] [id number] [place] [id number] [facility] NURSING PROGon 01-26-2022 NURSING PROG HNO ID: [id number] Author: Mulu Sosa RN Service: ? Author Type: Registered Nurse Type: Nursing Progress Note Filed: 01/27/2022 6:45 AM Note Text: Other: () assumed care of pt at this time, pt is alert and oriented x3, flat affect, depressed mood, disheveled appearance. Pt denies any SI/HI/AVH, when asked if he had any anxiety or depression he stated "I don't know". Pt medication compliant taken meds whole with H2O. Pt slept estimated 6-7 hours. Normal [facility] NURSING PROG HNO ID: [id number] Author: Huong Glass RN Service: Nursing Author Type: Counselor Type: Nursing Progress Note Filed: 01/26/2022 7:19 PM Note Text: [phone] Assumed care of pt awake in room. Assisting pt with transfer noted some SOB on exertion pt reported he has a cold.lungs clear all lobes, afebrile New orders received for labs and CXR evaluated by Octavio BERMUDEZ CNP no further orders received.. Pt is pleasant cooperative with hands on care stand by assist for unsteady gait. Alert and oriented x 3 denies SI, HI, AVH. Pt looking forward to discharge on 01/26/22. Medication compliant whole with water. Accu-checks AC AND HS. Safety precautions maintained. Normal [facility] Procalcitonin SerP-ncon 1 Procalcitonin [Mass/Vol] ng/mL Normal <0.09 [facility] Comment on above: Order Comment: Speci men Type: BLOOD SPECIMENOrdering Facility: [facility] Address: [address] [place] [address] Result Comment: For a guided interpretation of test results, please visit the Change in Procalcitonin Calculator, [email or web address]. Performed By: #### 1 9123-9, 08501-4, 1987-5, 40115-8 ####[facility] [id number] [address] [place] XR CHEST 1V FRONTALon 2021 XR CHEST 1V FRONTAL * * *Final Report* * * DATE OF EXAM: Jan 26 2022 10:52AM LUX 5290 - XR CHEST 1V FRONTAL / PROCEDURE REASON: Shortness of breath * * * * Physician Interpretation * * * * EXAMINATION: CHEST RADIOGRAPH (SINGLE VIEW AP OR PA) PATIENT/TECHNOLOGIST PROVIDED HISTORY: PT STS THAT HE HAS BEEN SOB RECENTLY CLINICAL INFORMATION: 61 years old Male with Shortness of breath MQ: XC1_5 Comparison: Chest radiograph 01/17/2022, 04/16/2021, 04/12/2021 RESULT: Lines, tubes, and devices: None. Lungs and pleura: Mild subsegmental atelectasis/scarring in the LEFT lung base. No consolidation or edema. Calcified granuloma in the LEFT upper lobe. No discernible pleural effusion or pneumothorax. Cardiomediastinal silhouette: Normal cardiopericardial silhouette. Atherosclerotic calcification aortic arch. Other: Degenerative changes in the visualized spine and bilateral acromioclavicular joints. IMPRESSION: Stable exam with no acute radiographic abnormality. Field Administrative Assistant: ROBERTA Transcribe Date/Time: Jan 26 2022 11:07A Dictated by : INA DONOVAN DO This examination was interpreted and the report reviewed and electronically signed by: INA DONOVAN DO on Jan 26 2022 11:12AM EST [id number] [facility] CASE MANAGEMon 01-25-2022 CASE MANAGEM HNO ID: [id number] Author: OSCAR Lopez Service: Social Work Author Type: Finishing Room Operator Type: Care Mgt Progress Note Filed: 01/25/2022 4:45 PM Note Text: BEHAVIORAL HEALTH SOCIAL WORK PROGRESS NOTE SERVICE DATE: 01/25/2022 SERVICE TIME: 4:31 PM Received PAS/determination results. Copy placed in pt's chart. Pt spoke with off premise service representative from [facility] over the phone this afternoon. SW spoke with admissions. Facility will provide decision on acceptance by either 5pm today or early tomorrow morning. Pt tentatively scheduled for discharge tomorrow (01/26) at 2:00pm via ambulance (trip #: [id number]). SW will continue to follow. SIGNATURE: AMERICA Lopez LSW PATIENT NAME: José Manuel Ashton DATE: January 25, 2022 TIME: 4:31 PM [facility] CASE MANAGEM HNO ID: [id number] Author: OSCAR Lopez Service: Social Work Author Type: Finishing Room Operator Type: Care Mgt Progress Note Filed: 01/25/2022 3:52 PM Note Text: BEHAVIORAL HEALTH SOCIAL WORK PROGRESS NOTE SERVICE DATE: 01/25/2022 SERVICE TIME: 10:41 AM [facility] on unit to complete assessment with pt for PAS/RR. Pt is currently linked with an outpatient psychiatrist (Dr. Inez Leon) at [facility]. Psych follow-up appointment scheduled. SW met with pt this afternoon to discuss facilities. Pt has been accepted by [facility] and [facility]. Awaiting response from [facility]. Pt's 1st choice is [facility], and 2nd choice is [facility]. Tentative discharge tomorrow or pending facility acceptance/selection and PAS results. Pt will likely need a COVID test prior to discharge. SW will continue to follow. SIGNATURE: AMERICA Lopez, FORGER HELPER PATIENT NAME: José Manuel Ashton DATE: January 25, 2022 TIME: 10:41 AM [facility] CONSULT PROGon 01-25-2022 CONSULT PROG HNO ID: [id number] Author: Collin Cheema DO Service: Endocrinology Author Type: Physician Type: Consult Progress Note Filed: 01/25/2022 9:23 PM Note Text: Endocrinology Inpatient Consult Progress Note PATIENT NAME: José Manuel Ashton DATE: January 25, 2022 CONSULTING PHYSICIAN: Dr. Short REASON FOR CONSULT: Uncontrolled T2DM. Interval Events No acute events. Tolerating diet. Slated for DC tomorrow Physical Examination BP 122/71 Pulse 94 Temp 36.9 ?C (98.4 ?F) (Oral) Resp 12 Ht 177.8 cm (5' 10") Wt 115.7 kg (255 lb 0.3 oz) SpO2 96% BMI 36.59 kg/m? NAD. Josiah affect. Non labored resp. RRR. No edema. Medications Current Facility-Administered Medications Medication Dose Route Frequency Provider Last Rate Last Admin metFORMIN ER 500 mg tab(s) (GLUCOPHAGE XR) 500 mg ORAL BID w MEALS Collin Madjonon, DO 500 mg at 01/24/22 1708 ergocalciferol (vitamin D2) 50,000 Units cap(s) (DRISDOL) 50,000 Units ORAL 1/WK Collin Madhun, DO 50,000 Units at 01/23/22 1451 tamsulosin 0.8 mg cap(s) (FLOMAX) 0.8 mg ORAL AT BEDTIME Corky Rodarte MD 0.8 mg at 01/24/22 2100 divalproex ER 500 mg tab(s) (DEPAKOTE ER) 500 mg ORAL DAILY Miriam Jennings APRN.PRODUCTION INTERN 500 mg at 01/24/22 0912 venlafaxine ER 75 mg cap(s) (EFFEXOR XR) 75 mg ORAL DAILY WITH BREAKFAST Miriam Jennings APRN.PRODUCTION INTERN 75 mg at 01/24/22 0916 haloperidol 5 mg tab(s) (HALDOL) 5 mg ORAL q 4 H PRN Freda Miller MD Or haloperidol lactate 5 mg short-acting injection (HALDOL) 5 mg INTRAMUSCULAR q 4 H PRN Freda Miller MD benztropine 2 mg injection (COGENTIN) 2 mg INTRAMUSCULAR q 30 MIN PRN Freda Miller MD diphenhydrAMINE 50 mg injection (BENADRYL) 50 mg INTRAMUSCULAR q 30 MIN PRN Freda Miller MD dextrose 40 % 15 g 15 g ORAL PRN Freda Miller MD Or glucagon 1 mg injection 1 mg INTRAMUSCULAR PRN Freda Miller MD Or dextrose 10% iv bolus 12.5 g INTRAVENOUS PRN Freda Miller MD aluminum-magnesium hydroxide-simethicone 200-200-20 mg/5 mL 30 mL (MAALOX,MYLANTA,MAG-AL PLUS) 30 mL ORAL DAILY PRN Teresa Diego APRN.PRODUCTION INTERN acetaminophen 650 mg tab(s) (TYLENOL) 650 mg ORAL q 6 H PRN Teresa Diego APRN.PRODUCTION INTERN insulin lispro injection (rapid acting) (ADMELOG) SUBCUTANEOUS AT BEDTIME Teresa Diego APRN.PRODUCTION INTERN 1 Units at 01/24/22 2100 lisinopril 20 mg tab(s) (ZESTRIL, PRINIVIL) 20 mg ORAL DAILY Teresa Diego APRN.PRODUCTION INTERN 20 mg at 01/24/22 0913 insulin lispro injection (rapid acting) (ADMELOG) SUBCUTANEOUS w MEALS Teresa Diego APRN.PRODUCTION INTERN 3 Units at 01/24/22 1709 pioglitazone (ACTOS) tab(s) 45 mg 45 mg ORAL DAILY Teresa Diego APRN.PRODUCTION INTERN 45 mg at 01/24/22 0912 docusate sodium 100 mg cap(s) (COLACE) 100 mg ORAL BID Teresa Diego APRN.PRODUCTION INTERN 100 mg at 01/24/22 2100 polyethylene glycol 3350 17 g packet (MIRALAX, GLYCOLAX) 17 g ORAL DAILY Teresa Diego APRN.PRODUCTION INTERN 17 g at 01/24/22 0912 insulin glargine 33 Units pen (long acting) (LANTUS SOLOSTAR, BASAGLAR KWIKPEN) 33 Units SUBCUTANEOUS AT BEDTIME Teresa Diego APRN.PRODUCTION INTERN 33 Units at 01/24/22 2100 melatonin 3 mg tab(s) 3 mg ORAL DAILY (8 PM) Yarely Dejesus MD 3 mg at 01/24/22 2000 gabapentin 100 mg cap(s) (NEURONTIN) 100 mg ORAL TID PRN Yarely Dejesus MD atorvastatin 40 mg tab(s) (LIPITOR) 40 mg ORAL AT BEDTIME Yarely Dejesus MD 40 mg at 01/24/222099 Data Date PreBreakfast Pre Lunch Pre Dinner Bedtime 3AM 01/21 151 (H+1) 223 (H+6) 235 (H+6) 261 (G33, H+3) 01/22 122 200 (H+3) 291 (H+6) 303 (G33, H+4) 01/23 89 197 (H+3) 290 (H+9) 159 (G33, H+1) 01/24 76 152 (H+1) 204 (H+3) 168 (G33, H+1) 01/25 95 351 (H+15) 95 153 (G27, H+1) Assessment / Plan # Type 2 Diabetes Mellitus HbA1c (01/22): 13.4% Home Regimen: Glargine 22 units HS. Metformin 1000 mg BID. Pioglitazone 45 mg Daily. Dulaglutide 1.5 qWk. Nutrition: CHO Controlled Diet Plan Decrease glargine to 27 units HS Cont lispro SSI #3 TID AC Cont lispro SSI #1 HS Cont pioglitazone 45 mg daily Cont CHO controlled diet Cont metformin ER 500mg BID with meals # Hypertension: Cont lisinopril 40mg daily. Obtain uAlb:Cr. # Dyslipidemia: Reviewed lipids from 01/20/22. LDL not at goal, it was 162. Cont atrovastatin 40mg daily and recheck when ambulatory. # Vitamin D Deficiency: Last Vit 25 [place] D was 12.2 in January. Stop daily ergo and start ergo 50k per week. Recheck as outpatient. Collin Cheema DO Endocrinology, Diabetes AND Metabolism January 25, 2022 8:42 AM PAGER: [phone] Normal [facility] Comprehensive metabolic 2000 panelon 01-25-2022 Albumin [Mass/Vol] 3.5 g/dL Low 3.9-4.9 [facility] Comment on above: Order Comment: Speci men Type: BLOOD SPECIMEN Ordering Facility: [facility] Address: [address] [place] [address] Performed By: #### 5 8410-2 #### [facility] CLIA [id number] [address] [place] [address] STATES [facility] ALP [Catalytic activity/Vol] 109 U/L Normal 38-113 [facility] Comment on above: Order Comment: Speci men Type: BLOOD SPECIMEN Ordering Facility: [facility] Address: [address] [place] [address] Performed By: #### 5 8410-2 #### [facility] CLIA [id number] [address] [place] [address] ALT [Catalytic activity/Vol] 12 U/L Normal 10-54 [facility] Comment on above: Order Comment: Speci men Type: BLOOD SPECIMEN Ordering Facility: [facility] Address: [address] [place] [address] Performed By: #### 5 8410-2 #### [facility] CLIA [id number] [address] [place], [place] [address] [place] [facility] Anion gap [Moles/Vol] 13 mmol/L Normal 9-18 [facility] Comment on above: Order Comment: Speci men Type: BLOOD SPECIMEN Ordering Facility: [facility] Address: [address] [place] [address] Performed By: #### 5 8410-2 #### [facility] CLIA [id number] [address] [place], [place] [address] [place] [facility] AST [Catalytic activity/Vol] 16 U/L Normal 14-40 [facility] Comment on above: Order Comment: Speci men Type: BLOOD SPECIMEN Ordering Facility: [facility] Address: [address] [place], [place] [address] Performed By: #### 5 8410-2 #### [facility] CLIA [id number] [address] [place] [address] [place] Bilirubin [Mass/Vol] 0.2 mg/dL Normal 0.2-1.3 [facility] Comment on above: Order Comment: Speci men Type: BLOOD SPECIMEN Ordering Facility: [facility] Address: [address] [place], [place] [address] Performed By: #### 5 8410-2 #### [facility] CLIA [id number] [address] [place] [address] [place] Calcium [Mass/Vol] 9.3 mg/dL Normal 8.5-10.2 [facility] Comment on above: Order Comment: Speci men Type: BLOOD SPECIMEN Ordering Facility: [facility] Address: [address] [place], [place] [address] Performed By: #### 5 8410-2 #### [facility] CLIA [id number] [address] [place] [address] [place] Chloride [Moles/Vol] 100 mmol/L Normal 97-105 [facility] Comment on above: Order Comment: Speci men Type: BLOOD SPECIMEN Ordering Facility: [facility] Address: [address] [place], [place] [address] Performed By: #### 5 8410-2 #### [facility] CLIA [id number] [address] [place] [address] [place] CO2 [Moles/Vol] 27 mmol/L Normal 22-30 [facility] Comment on above: Order Comment: Speci men Type: BLOOD SPECIMEN Ordering Facility: [facility] Address: [address] [place], [place] [address] Performed By: #### 5 8410-2 #### [facility] [place] [id number] [address] [place], [place] [address] [place] Creatinine [Mass/Vol] 1.20 mg/dL Normal 0.73-1.22 [facility] Comment on above: Order Comment: Luz vaughan Type: BLOOD SPECIMEN Ordering Facility: [facility] Address: [address] [place], [place] [address] Performed By: #### 5 8410-2 #### [facility] IA [id number] [address] [place] [address] [place] ESTIMATED GLOMERULAR FILTRATION RATE 68 mL/min/1.73m??? Normal >=60 [facility] Comment on above: Order Comment: Luz vaughan Type: BLOOD SPECIMEN Ordering Facility: [facility] Address: [address] [place] [address] Result Comment: Breanne mated Glomerular Filtration Rate (eGFR) is calculated using the 2020 CKD-EPI creatinine equation. This equation utilizes serum creatinine, sex, and age as parameters. The creatinine assay has traceable calibration to isotope dilution-mass spectrometry. Refer to KDIGO guidelines for clinical interpretation. In patients with unstable renal function, e.g. those with acute kidney injury, the eGFR may not accurately reflect actual GFR. Performed By: #### 5 8410-2 #### [facility] IA [id number] [address] [place], [place] [address] [place] Glucose [Mass/Vol] 136 mg/dL High 74-99 [facility] Comment on above: Order Comment: Luz vaughan Type: BLOOD SPECIMEN Ordering Facility: [facility] Address: [address] [place], [place] [address] Result Comment: The [place] Diabetes Association (ADA) provides guidance for cutoff values for fasting glucose and random glucose. The ADA defines fasting as no caloric intake for at least 8 hours. Fasting plasma glucose results between 100 to 125 mg/dL indicate increased risk for diabetes (prediabetes). Fasting plasma glucose results greater than or equal to 126 mg/dL meet the criteria for diagnosis of diabetes. In the absence of unequivocal hyperglycemia, results should be confirmed by repeat testing. In a patient with classic symptoms of hyperglycemia or hyperglycemic crisis, random plasma glucose results greater than or equal to 200 mg/dL meet the criteria for diagnosis of diabetes. Reference: Standards of Medical Care in Diabetes 2016, [place] [employer] Association. Diabetes Care. 2016.39(Suppl 1). Performed By: #### 5 8410-2 #### [facility] CLIA [id number] [address] [place] [address] [place] Potassium [Moles/Vol] 4.8 mmol/L Normal 3.7-5.1 [facility] Comment on above: Order Comment: Speci men Type: BLOOD SPECIMEN Ordering Facility: [facility] Address: [address] [place] [address] Performed By: #### 5 8410-2 #### [facility] CLIA [id number] [address] [place] [address] [place] Protein [Mass/Vol] 6.4 g/dL Normal 6.3-8.0 [facility] Comment on above: Order Comment: Speci men Type: BLOOD SPECIMEN Ordering Facility: [facility] Address: [address] [place] [address] Performed By: #### 5 8410-2 #### [facility] CLIA [id number] [address] [place], [place] [address] [place] Sodium [Moles/Vol] 140 mmol/L Normal 136-144 [facility] Comment on above: Order Comment: Speci men Type: BLOOD SPECIMEN Ordering Facility: [facility] Address: [address] [place] [address] Performed By: #### 5 8410-2 #### [facility] CLIA [id number] [address] [place], [place] [address] [place] Urea nitrogen [Mass/Vol] 26 mg/dL High 9-24 [facility] Comment on above: Order Comment: Speci men Type: BLOOD SPECIMEN Ordering Facility: [facility] Address: [address] [place] [address] [place] [address] Performed By: #### 5 8410-2 #### [facility] CLIA [id number] [address] [place] [address] NURSING PROGon 01-25-2022 NURSING PROG HNO ID: [id number] Author: Leslie Pa RN Service: Nursing Author Type: Registered Nurse Type: Nursing Progress Note Filed: 01/25/2022 6:55 PM Note Text: Nursing Progress Note Topic of Note: Daily Note José Manuel Ashton [id number] Assumed care of patient. Patient is awake, out of bed. Withdrawn, depressed, frienly affect. Patient complains of constant pain 8/10 in his back, declines any interventions. Patient strongly encouraged to attend group today, and patient took a shower. After the shower, patient was in high spirits, joking with staff, socializing with peers, and rated his depression down to a 6/10 throughout the entire afternoon. AANDOx3, compliant with medications, tolerating meals well. Patient denies SI/HI/AVH, endorses depression related to his pain. Standard precautions. Very unsteady with his gait, necessitating 1-2 person assistance. Bladder scan after void, but patient only voided 1x this shift. This note was completed by: Leslie Pa [facility] SARS-CoV-2 RNA Resp Ql BETO+p robeon 01-25-2022 SARS-CoV-2 (COVID-19) RNA BETO+probe Ql (Resp) COVID 19 RESULT: SARS-CoV-2 (Agent of COVID-19) Not Detected by RT-PCR or equivalent method. This test has been authorized by FDA under an Emergency Use Authorization (EUA). [facility] Comment on above: Performed By: #### 9 4500-6 ####[facility] [id number] [place] [id number] [facility] CASE MANAGEMon 01-24-2022 CASE MANAGEM HNO ID: [id number] Author: OSCAR Lopez Service: Social Work Author Type: Finishing Room Operator Type: Care Mgt Progress Note Filed: 01/24/2022 4:08 PM Note Text: BEHAVIORAL HEALTH SOCIAL WORK PROGRESS NOTE SERVICE DATE: 01/24/2022 SERVICE TIME: 3:44 PM SW met with pt in [facility] to discuss discharge plans. Pt has a history of noncompliance with medications and appointments. Discussed options of short term SNF stay for rehab and home with home care. Initially, pt states "I don't want to go to a [facility] in [place]. I want to go to that place at [facility] (meaning [facility] acute rehab[facility]. Informed pt he does not qualify for acute rehab at this time. PT is recommending SNF. Pt declines home care referral stating "it's not my house. I just stay with my brother and sister. I don't want anyone coming in.". SW discussed SNF options further. SW reminded pt it his choice as to which SNF he goes to at discharge. After further discussion, pt was more amenable to going to SNF. Pt agreed for this food writer to begin referral process, and is hopeful to go to a SNF near [facility]. Pt is agreeable to being linked with a psychiatrist in [facility] a well. Submitted PAS via [facility]. Awaiting PAS/determination results. Referrals sent to multiple facilities near [facility]. Awaiting acceptance. Tentative discharge by middle to end of this week pending further stabilization, PAS results, and facility acceptance/selection. SW will need to link pt with a psychiatrist. SW will continue to follow. SIGNATURE: Neela Johnson MSW, FORGER HELPER PATIENT NAME: José Manuel Ashton DATE: January 24, 2022 TIME: 3:44 PM [facility] CONSULT PROGon 01-24-2022 CONSULT PROG HNO ID: [id number] Author: Collin Cheema DO Service: Endocrinology Author Type: Physician Type: Consult Progress Note Filed: 01/24/2022 10:46 PM Note Text: Endocrinology Inpatient Consult Progress Note PATIENT NAME: José Manuel Ashton DATE: January 24, 2022 CONSULTING PHYSICIAN: Dr. Short REASON FOR CONSULT: Uncontrolled T2DM. Interval Events No acute events. Tolerating meals He is encouraged with his good BS. No diarrhea with metformin. He is pessimistic that he will have it soon. Physical Examination BP 122/73 Pulse 90 Temp 36.6 ?C (97.9 ?F) (Oral) Resp 18 Ht 177.8 cm (5' 10") Wt 115.7 kg (255 lb 0.3 oz) SpO2 95% BMI 36.59 kg/m? NAD. Josiah affect. Non labored resp. RRR. No edema. Medications Current Facility-Administered Medications Medication Dose Route Frequency Provider Last Rate Last Admin metFORMIN ER 500 mg tab(s) (GLUCOPHAGE XR) 500 mg ORAL BID w MEALS Collin Madhun, DO 500 mg at 01/23/22 1652 ergocalciferol (vitamin D2) 50,000 Units cap(s) (DRISDOL) 50,000 Units ORAL 1/WK Collin Madhun, DO 50,000 Units at 01/23/22 1451 tamsulosin 0.8 mg cap(s) (FLOMAX) 0.8 mg ORAL AT BEDTIME Corky Rodarte MD 0.8 mg at 01/23/22 2043 divalproex ER 500 mg tab(s) (DEPAKOTE ER) 500 mg ORAL DAILY Miriam Jennings APRN.PRODUCTION INTERN 500 mg at 01/23/22 0859 venlafaxine ER 75 mg cap(s) (EFFEXOR XR) 75 mg ORAL DAILY WITH BREAKFAST Miriam Jennings APRN.PRODUCTION INTERN haloperidol 5 mg tab(s) (HALDOL) 5 mg ORAL q 4 H PRN Freda Miller MD Or haloperidol lactate 5 mg short-acting injection (HALDOL) 5 mg INTRAMUSCULAR q 4 H PRN Freda Miller MD benztropine 2 mg injection (COGENTIN) 2 mg INTRAMUSCULAR q 30 MIN PRN Freda Miller MD diphenhydrAMINE 50 mg injection (BENADRYL) 50 mg INTRAMUSCULAR q 30 MIN PRN Freda Miller MD dextrose 40 % 15 g 15 g ORAL PRN Freda Miller MD Or glucagon 1 mg injection 1 mg INTRAMUSCULAR PRN Freda Miller MD Or dextrose 10% iv bolus 12.5 g INTRAVENOUS PRN Freda Miller MD aluminum-magnesium hydroxide-simethicone 200-200-20 mg/5 mL 30 mL (MAALOX,MYLANTA,MAG-AL PLUS) 30 mL ORAL DAILY PRN Teresa Diego APRN.PRODUCTION INTERN acetaminophen 650 mg tab(s) (TYLENOL) 650 mg ORAL q 6 H PRN Teresa Diego APRN.PRODUCTION INTERN insulin lispro injection (rapid acting) (ADMELOG) SUBCUTANEOUS AT BEDTIME Teresa Diego APRN.PRODUCTION INTERN 1 Units at 01/23/222044 lisinopril 20 mg tab(s) (ZESTRIL, PRINIVIL) 20 mg ORAL DAILY Teresa Diego, CASKET UPHOLSTERER.PRODUCTION INTERN 20 mg at 01/23/22 0859 insulin lispro injection (rapid acting) (ADMELOG) SUBCUTANEOUS w MEALS Teresa Diego APRN.PRODUCTION INTERN 9 Units at 01/23/22 165 pioglitazone (ACTOS) tab(s) 45 mg 45 mg ORAL DAILY Teresa Diego, CASKET UPHOLSTERER.PRODUCTION INTERN 45 mg at 01/23/22 0859 docusate sodium 100 mg cap(s) (COLACE) 100 mg ORAL BID Teresa Diego, CASKET UPHOLSTERER.PRODUCTION INTERN 100 mg at 01/23/222042 polyethylene glycol 3350 17 g packet (MIRALAX, GLYCOLAX) 17 g ORAL DAILY Teresa Diego, CASKET UPHOLSTERER.PRODUCTION INTERN 17 g at 01/23/22 08 insulin glargine 33 Units pen (long acting) (LANTUS SOLOSTAR, BASAGLAR KWIKPEN) 33 Units SUBCUTANEOUS AT BEDTIME Teresa Diego, CASKET UPHOLSTERER.PRODUCTION INTERN 33 Units at 01/23/222044 melatonin 3 mg tab(s) 3 mg ORAL DAILY (8 PM) Yarely Dejesus MD 3 mg at 01/23/222042 gabapentin 100 mg cap(s) (NEURONTIN) 100 mg ORAL TID PRN Yarely Dejesus MD atorvastatin 40 mg tab(s) (LIPITOR) 40 mg ORAL AT BEDTIME Yarely Dejesus MD 40 mg at 01/23/222042 Data Date PreBreakfast Pre Lunch Pre Dinner Bedtime 3AM 01/21 151 (H+1) 223 (H+6) 235 (H+6) 261 (G33, H+3) 01/22 122 200 (H+3) 291 (H+6) 303 (G33, H+4) 01/23 89 197 (H+3) 290 (H+9) 159 (G33, H+1) 01/24 76 152 (H+1) 204 (H+3) 168 (H+1) Assessment / Plan # Type 2 Diabetes Mellitus HbA1c (01/22): 13.4% Home Regimen: Glargine 22 units HS. Metformin 1000 mg BID. Pioglitazone 45 mg Daily. Dulaglutide 1.5 qWk. Nutrition: CHO Controlled Diet Plan Cont glargine 33 units HS Cont lispro SSI #3 TID AC Cont lispro SSI #1 HS Cont pioglitazone 45 mg daily Cont CHO controlled diet Cont metformin ER 500mg BID with meals # Hypertension: Cont lisinopril 40mg daily. Obtain uAlb:Cr. # Dyslipidemia: Reviewed lipids from 01/20/22. LDL not at goal, it was 162. Cont atrovastatin 40mg daily and recheck when ambulatory. # Vitamin D Deficiency: Last Vit 25 OH D was 12.2 in January. Stop daily ergo and start ergo 50k per week. Recheck as outpatient. Collin Cheema, DO Endocrinology, Diabetes AND Metabolism January 24, 2022 8:42 AM PAGER: [phone] [facility] NURSING PROGon 01-24-2022 NURSING PROG HNO ID: [id number] Author: Leslie Pa RN Service: Nursing Author Type: Registered Nurse Type: Nursing Progress Note Filed: 01/24/2022 6:36 PM Note Text: Nursing Progress Note Topic of Note: Daily Note José Manuel Ashton [phone] Assumed care of patient. Patient is awake, out of bed. Pleasant, depressed, withdrawn affect. AANDOx3, compliant with medications, tolerating meals well. Patient denies SI/HI/AVH, denies anxiety and depression. Standard precautions. Patient was highly unsteady this AM and needed more assistance. Patient stayed in the day area and did not socialize, nor attend activities, nor use the restroom. Patient only voided 1x throughout the shift, BS at the end of the shift read only 127. This note was completed by: Leslie [facility] THERAPY NTon 01-24-2022 THERAPY NT HNO ID: [id number] Author: Ester Ball, Student Service: Occupational Therapy Author Type: Student Type: Therapy (PT/OT/Speech/Resp) Filed: 01/24/2022 1:14 PM Note Text: -- Attestation signed by ANN MARIE Mistry/Roma at 01/24/2022 1:17 PM Jonas Gupta OTR/L reviewed the assessment and participated in jiang components. I agree with the documentation as written. -- OCCUPATIONAL THERAPY INPATIENT PSYCHOSOCIAL ASSESSMENT Name: José Manuel Ashton Date: January 24, 2022 DISCHARGE RECOMMENDATIONS: OT recommendations for potential skilled needs indeterminate, pending progress, mood stabilization, prior baseline functioning, and if need identified at discharge. Pt reported that he is not interested in a SNF "I don't want to go to a [facility]" or receive home OT services because it is not my house (lives with brother and sister)." Pt reported "if I had to go somewhere I would rather go to a rehab center." Recommend increased oversight with medication management due to noncompliance. Recommend increased monitoring/support to facilitate transition back to daily routines. Recommend mental health follow-up. NURSING RECOMMENDATIONS: Supervision/set-up with ADLs. Assist using straight cane with functional mobility. Decreased safety awareness. Recommend reinforce unit daily ADL routines and expectations during stay. Recommend reinforce safety considerations in place on the unit and during the ADL process. Pt has potential to demonstrate a decreased frustration tolerance during caregiver encounters. Encourage milieu activities. Fall Risk. 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 Per Psych consult 01/19/2022 by Rafal Fuentes PA-C "Mood is "not good." Feels "angry" most of the days. Feels "kind of" anxious today. Vague about his depression. "I probably need help. I don't want to go backwards. I'm going backwards. I don't know. I don't know what is going on." Endorses low motivation, low energy. Endorses sleep difficulties. Admits difficulties managing his medicine. Says his concentration is probably not very good. Endorses feeling overwhelmed: "I don't know what is going on.... too many things with my health. I don't know if I will get better." When asked if he has wishes, states "I don't know." He denies thoughts to hurt himself or end his life. Denies hallucinations. " Pt was admitted medically on 01/17 for elevated glucose levels. Pt had stopped taking his medications. Given concerns for his depression to be affecting his quality of life and his ability to care for himself, voluntary admission to inpatient psychiatry recommended for further evaluation and care. Patient is agreeable. Per ED quill worker Roxanne MOORE on 01/17 This food writer assessed patient via face to face who presents alert and oriented x 4, appears overweight and disheveled, speech is within normal limits appropriate to tone, prosody, melody, phonetic, and syntax, thought process is linear and organized, difficulty concentrating at times, and a poor historian,, mood is depressed with flat affect, with impaired judgement and insight into illness. Patient reports that his Machine Operator Farmworker sent him to the emergency room for a psychiatric evaluation due to not taking his medications. Patient states that he doesn't know why he doesn't take them ?I just don't do it, I don't know why?. Patient denies that he does this in an attempt to sooner although he states ?I've just given up, nothing seems to be getting better, I have too many things going on?. This food writer inquires if patient believ (more content not included)... Normal [facility] ALBUMIN/CREAT RATIO RND URon 01-23-2022 Albumin DL <= 20 mg/L (U) [Mass/Vol] 1334.3 mg/L Normal [facility] Comment on above: Order Comment: Specjonas vaughan Type: BLOOD SPECIMEN Ordering Facility: [facility] Address: [address] [place], [place] [id number] Performed By: #### 5 8410-2 #### [facility] CLIA [id number] [address] [place] [address] [facility] Albumin/Creatinine (U) [Mass ratio] 1438 mg/g High <30 [facility] Comment on above: Order Comment: Speci clement Type: BLOOD SPECIMEN Ordering Facility: [facility] Address: [address] [place], [place] [id number] Result Comment: Adul t Male and Female Nephrotic Criteria: <30 mg/g is considered normal to mildly increased 30-300 mg/g is considered moderately increased >300 mg/g is considered severely increased KDIGO. (2013). KDIGO 2012 Clinical Practice Guideline for the Evaluation and Management of Chronic Kidney Disease. Official Journal of the International Society of Nephrology, 3(1), 1-150. Performed By: #### 5 8410-2 #### [facility] CLIA [id number] [address] [place] [address] [place] [address] [place] Creatinine (U) [Mass/Vol] 92.8 mg/dL Normal 20.0-300.0 [facility] Comment on above: Order Comment: Speci men Type: BLOOD SPECIMEN Ordering Facility: [facility] Address: [address] [place] [address] [place] [address] Performed By: #### 5 8410-2 #### [facility] CLIA [id number] [address] [facility] [place] [place] [address] [facility] CONSULTon 01-23-2022 CONSULT HNO ID: [id number] Author: Collin Cheema DO Service: Hospital Medicine Author Type: Physician Type: Consults Filed: 01/23/2022 7:52 PM Note Text: Endocrinology Initial Consult Note PATIENT NAME: José Manuel Ashton SERVICE DATE: 01/23/2022 SERVICE TIME: 12:55 PM Consulting Physician: Dr. Luis Carlos Short Reason for Consult: Uncontrolled T2DM History of Presenting Illness 61y M w. 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 Patient does report depression. He also states that he might have anxiety as well. He cannot separate the 2. He reports that he does have diabetes. He reports that he takes dulaglutide weekly, glargine 22 units, pioglitazone 45 mg, and metformin twice daily. The patient reports that he does not have good compliance with his diabetes therapy. He reports that he has not taken it for weeks now. He has not taken his blood sugars for weeks as well. The patient reports that when he does check his blood sugars are higher and he becomes discouraged. He states that when he gets discouraged he is completely stopped taking all of his medications. He does not recall if he follows with the superintendent meters or not. The patient does report significant nocturia, polyuria, and polydipsia. Review of Systems General: - Fevers, Chills, Weight Loss, or Night Sweats HEENT: - Headaches or Blurry Vision Cardiovascular: - CP, Palpitations, Diaphoresis, or Peripheral Edema Respiratory: - Cough, Shortness of Breath, or Hemoptysis Gastrointestinal: - N/V, Abdominal Pain, Constipation, Diarrhea, Melena, or Hematochezia Genitourinary: Positive for Polyruia, Dysuria, and urgency Endo: - Polydipsia, Heat/Cold Intolerance, or Hair/Skin/Nail Changes Rheum: - Joint Pain MSK: - LBP or Muscle Pain Psych: Positive for anxiety and depression Family/Medical/Surgical/So cial Hx FAMILY HISTORY Problem Relation Age of Onset other (Heart stroke) Mother other (Glaucoma lung cancer) Father Glaucoma Sister Glaucoma Brother 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 Ahmadi Social History Tobacco Use Smoking status: Former Packs/day: 1.00 Years: 37.00 Pack years: 37.00 Types: Cigarettes Quit date: 04/03/2010 Years since quittin.8 Smokeless tobacco: Never Tobacco comments: Smokes [place] Vaping Use Vaping Use: Never used Substance Use Topics Alcohol use: Not Currently Drug use: Yes Types: Marijuana Comment: daily Medications/Allergies tamsulosin (FLOMAX) 0.4 mgTake 1 capsule by mouth once daily.Disp: 90 capsuleRfl: 5 pioglitazone (ACTOS) 45 mg tabletTake 1 tablet by mouth once daily.Disp: 90 tabletRfl: 3 metFORMIN ER (GLUCOPHAGE XR) 500 mg 24 hr tabletTwo tablets before breakfast and before supperDisp: 120 tabletRfl: 1 insulin glargine (LANTUS SOLOSTAR, BASAGLAR KWIKPEN) 100 unit/mL (3 mL)Inject 26 Units subcutaneously daily at bedtime.Disp: 6 PenRfl: 1 dulaglutide (TRULICITY) 1.5 mg/0.5 mL pen injectorInject 1.5 mg subcutaneously one time a week.Disp: 4 EachRfl: 1 Insulin [place], Disposable, (COMFORT EZ PEN NEEDLES) 29 gauge x 1/2"1 Each once daily.Disp: 100 EachRfl: 3 blood sugar diagnostic (BLOOD GLUCOSE TEST) test jobrn7q/dayDisp: 100 StripRfl: 11 Blood-Glucose Meter monitoring kitFor monitoring sugars 3x/day (patient on insulin)Disp: 1 EachRfl: 1 Lancets lancetsUse as instructed 3x/dayDisp: 100 EachRfl: 11 alcohol swabs (ALCOHOL PREP PADS)Apply 1 application to affected area as directed.Disp: 100 EachRfl: 3 Penicillins Physical Exam BP 132/75 Pulse 80 Temp 36.6 ?C (97.9 ?F) (Oral) Resp (more content not included)... [facility] NURSING PROGon 01-23-2022 NURSING PROG HNO ID: [id number] Author: Huong Black RN Service: Nursing Author Type: Registered Nurse Type: Nursing Progress Note Filed: 01/23/2022 10:48 PM Note Text: Other: Daily Note: Is oriented x3. Spent majority of shift in the common area. Behavior in control. Watched football games on tv. In w/c. Able to mobilize self. Utilizes cane for shorter distances. Appearance disheveled. Clear in conversation. Pleasant. Denied SI/HI. Rated his anxiety moderate 5/10; when questioned re: depression and rating high/low/moderate--pt expreseed, "I'm not even sure that I feel there's a difference between the depression and anxiety". Verbalized feeling that his depression and anxiety are 'almost one in the same'. Expressed, "I can't figure it out though. Things just seem to set me off sometimes." Emotional support provided via 1:1. Accu-check before fmrayj=683--5 units Lispro insulin given per sliding scale. C/o lower abdominal discomfort and back pain--declined offerings of Tylenol--"Nothing helps." Is calm--sitting in common area @ present time. Q15min safety rds continue. 2234--Compliant with HS meds--took 'whole' with water. Accu-check this YB=506; received 1 unit Lispro insulin per sliding scale. Was given Lantus insulin 33 units per scheduled order. Had HS snack. Needed some hands-on assist with HS care. Very unsteady during transfer--needing 1-assist. C/o dizziness upon standing--that diminished once in bed per pt. Voided large amount of urine @ 2214; Post-void bladder scan done=0ml. Repeat scan=also 0ml. Mild redness noted @ lower abdominal fold--area cleansed. Is presently resting in bed--calm. Call-light use reinforced. Bed alarm on. Q15min safety rds continue. [facility] NURSING PROG HNO ID: [id number] Author: Sloane Lanza RN Service: Behavioral Health Author Type: Registered Nurse Type: Nursing Progress Note Filed: 01/23/2022 1:50 PM Note Text: Other: Daily Note: Pt is pleasant upon approach, social with staff and peers. Reports pain in both his lower back and groin, but refused any medication intervention ( pill or patch), stating that it don't work. Reports that he has anger issues and believes that it from being in constant pain. Out of room for meals and to watch TV, but refused to attend groups today, stating "It's not for me". Med compliant, independent with ADL's, but is SBA for transfers, with a cane. Pt does ambulate the unit with a wheeled chair. [facility] NURSING PROG HNO ID: [id number] Author: Tanya Valdez RN Service: Nursing Author Type: Registered Nurse Type: Nursing Progress Note Filed: 01/23/2022 6:17 AM Note Text: Nursing Progress Note Patient Name: José Manuel Ashton Patient Location: [address] Daily Note: Assumed care of pt at 1900. Pt seen oou watching TV with peers and eating a snack. Pleasant, calm, and cooperative with assessment. HS accu check = 303, 4 units insulin lispro provided per sliding scale 1 as well as scheduled 33 units insulin glargine pen. Pt compliant with other scheduled medications which he took whole with water. Pt denies SI/HI/AVH at this time. Endorses continuous back pain, declines offered PRN Tylenol. Reports he normally uses medical marijuana for it at home. Pt asked for assistance to the bathroom and had a BM. Denies any other needs at this time and agrees to make needs known to staff. Behavior in control, safety maintained. 0600: Pt slept about 7 hours through the night. No distress noted. Safety maintained. This note was completed by: Tanya Valdez [facility] HEALTHon 01-22-2022 ALLIED HEALTH HNO ID: [id number] Author: Art Gordon Music Mary Service: Music Therapy Author Type: Music Therapist Type: Allied Health Filed: 01/22/2022 1:12 PM Note Text: THERAPEUTIC PROGRAMMING ASSESSMENT SERVICE DATE: 01/22/2022 SERVICE TIME: 1300 ASSESSMENT COMPLETED: No: Pt to be evaluated by occupational therapy when available. Pt was oriented to the unit and therapeutic programming schedule, as well as opportunities for independent activities (reading, coloring, puzzles, etc.) Pt was offered opportunities to ask questions about group therapy, and expressed interest in attending group therapy sessions. "I'll try to be there." SIGNATURE: Art Gordon Music Therapist PATIENT NAME: José Manuel Ashton DATE: January 22, 2022 TIME: 1:11 PM [facility] CONSULTon 01-22-2022 CONSULT HNO ID: [id number] Author: Corky Rodarte MD Service: Urology Author Type: Physician Type: Consults Filed: 01/22/2022 5:58 PM Note Text: [facility] - Consultation JOSÉ MANUEL ASHTON : 1960 AGE: 61 SEX: M [facility]: [id number] [facility]: PSYR LOCATION: 6002 ATTENDING PHYSICIAN: Luis Carlos Short Jr., M.D. DATE OF SERVICE: 01/22/2022 TIME OF SERVICE: 11:09 AM CONSULTING PHYSICIAN: Corky Rodarte M.D. REQUESTING PHYSICIAN: 1. Luis Carlos Short Jr., M.D. 2. Dr. Olivas. REASON FOR THE CONSULTATION: BPH with lower urinary tract symptoms. BRIEF CLINICAL SUMMARY: This 61-year-old man is admitted to [facility] emergently on 01/18/2022 because of psychiatric problems, depression and noncompliance with his medication and dehydration. The patient was also complaining of difficulty urinating, was known to have BPH with lower urinary tract symptoms, treated with alpha blockers, which he was not taking. The patient complained of occasional mild dysuria, slow stream, urgency, frequency, and nocturia. He denies retention, gross hematuria, recent UTI, urethral discharge or pain or swelling in his testicles. The patient also denies previous urologic surgery or a need for an indwelling Bright for retention of urine. PAST MEDICAL HISTORY: Remarkable for depression, BPH, adenocarcinoma of the rectum, 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, diabetes, hyperlipidemia, hypertension, and back pain. PREVIOUS SURGERY: Colonoscopy, EGD, and excision of rectal tumor. ALLERGIES TO MEDICATION: Penicillin. MEDICATIONS: Prior to admission multiple including tamsulosin. SOCIAL HISTORY: Lives in a community. Former cigarette smoker, stopped in 2010. Denies chemical vaping. Drinks alcohol in the past, but he said not recently. Smokes marijuana, but not currently. REVIEW OF SYSTEMS: The patient denied fevers and chills. The patient denied headache or difficulty swallowing. The patient complained of poor appetite. Denied nausea, vomiting, bloody stools, diarrhea, or constipation. The patient complained of nocturia, frequency, urgency and a slow stream, but denied retention. He denied gross hematuria. He denied incontinence. The patient denied muscle pain or difficulty walking. Remaining review of systems noncontributory. PHYSICAL EXAMINATION: General: Elderly gentleman, sitting up, holding his head. He is awake, alert, and in no distress. Vital Signs: His temperature this morning 36.7. HEENT: Head normal. Oropharynx, moist mucosa. Neck: No adenopathy. Chest Wall: Nontender. Abdomen: Protuberant. Normal bowel sounds. Soft. Back: Nontender. No inguinal hernia. Genitalia: Appear normal. EXTREMITIES: Normal. No joint swelling. RESULTS: Urinalysis was yellow, clear, 2+ glucose, trace protein and 1+ blood. Electrolytes were normal. Creatinine was 1.26. PSA was 0.74. White count 6900, hematocrit 41%. ASSESSMENT: BPH with lower urinary tract symptoms and microscopic hematuria. PLAN: 1. Agree with current management. 2. Bladder scan for postvoid residual. 3. Increase tamsulosin to 0.8 mg daily, which is maximal dose. We will continue to follow. Thank you for allowing me to see this gentleman in consultation. Corky Rodarte M.D. Urology JL:[id number] /[id number] Normal [facility] Comprehensive metabolic 2000 panelon 01-22-2022 Albumin [Mass/Vol] 3.2 g/dL Low 3.9-4.9 [facility] Comment on above: Order Comment: Speci men Type: BLOOD SPECIMENOrdering Facility: [facility] Address: [address] [place] [address] Performed By: #### 2 4323-8 ####[facility] [id number] [address] ALP [Catalytic activity/Vol] 103 U/L Normal 38-113 [facility] Comment on above: Order Comment: Speci men Type: BLOOD SPECIMENOrdering Facility: [facility] Address: [address] [place] [address] Performed By: #### 2 4323-8 ####[facility] [id number] [address] [place] [facility] ALT [Catalytic activity/Vol] 9 U/L Low 10-54 [facility] Comment on above: Order Comment: Speci men Type: BLOOD SPECIMENOrdering Facility: [facility] Address: [address] [place], [place] [address] Performed By: #### 2 4323-8 ####[facility] [id number] [address] [place], [place] [id number] [place] Anion gap [Moles/Vol] 10 mmol/L Normal 9-18 [facility] Comment on above: Order Comment: Speci men Type: BLOOD SPECIMENOrdering Facility: [facility] Address: [address] [place], [place] [address] Performed By: #### 2 4323-8 ####[facility] [id number] [place] [id number] [place] AST [Catalytic activity/Vol] 10 U/L Low 14-40 [facility] Comment on above: Order Comment: Speci men Type: BLOOD SPECIMENOrdering Facility: [facility] Address: [address] [place], [place] [address] Performed By: #### 2 4323-8 ####[facility] [id number] [place] [id number] [place] Bilirubin [Mass/Vol] 0.2 mg/dL Normal 0.2-1.3 [facility] Comment on above: Order Comment: Speci men Type: BLOOD SPECIMENOrdering Facility: [facility] Address: [address] [place], [place] [address] Performed By: #### 2 4323-8 ####[facility] [id number] [place] [id number] [place] Calcium [Mass/Vol] 9.2 mg/dL Normal 8.5-10.2 [facility] Comment on above: Order Comment: Speci men Type: BLOOD SPECIMENOrdering Facility: [facility] Address: [address] [place], [place] [address] Performed By: #### 2 4323-8 ####[facility] [id number] [place] [id number] [place] Chloride [Moles/Vol] 104 mmol/L Normal 97-105 [facility] Comment on above: Order Comment: Speci men Type: BLOOD SPECIMENOrdering Facility: [facility] Address: [address] [place] [address] Performed By: #### 2 4323-8 ####[facility] [id number] [place] [id number] [place] CO2 [Moles/Vol] 26 mmol/L Normal 22-30 [facility] Comment on above: Order Comment: Speci men Type: BLOOD SPECIMENOrdering Facility: [facility] [facility] Address: [address] [place] [address] Performed By: #### 2 4323-8 ####[facility]ATORYCLIA [id number] [place] [id number] [place] Creatinine [Mass/Vol] 1.26 mg/dL High 0.73-1.22 [facility] Comment on above: Order Comment: Speci men Type: BLOOD SPECIMENOrdering Facility: [facility] Address: [address] [place] [address] Performed By: #### 2 4323-8 ####[facility] LABORATORYCLIA [id number] [place] [id number] [place] [facility] ESTIMATED GLOMERULAR FILTRATION RATE 64 mL/min/1.73m??? Normal >=60 [facility] Comment on above: Order Comment: Speci men Type: BLOOD SPECIMENOrdering Facility: [facility] Address: [address] [place] [address] Result Comment: Breanne mated Glomerular Filtration Rate (eGFR) is calculated using the 2020 CKD-EPI creatinine equation. This equation utilizes serum creatinine, sex, and age as parameters. The creatinine assay has traceable calibration to isotope dilution-mass spectrometry. Refer to KDIGO guidelines for clinical interpretation. In patients with unstable renal function, e.g. those with acute kidney injury, the eGFR may not accurately reflect actual GFR. Performed By: #### 2 4323-8 ####[facility]ORATORYCLIA [id number] [place] [id number] [place] Glucose [Mass/Vol] 141 mg/dL High 74-99 [facility] Comment on above: Order Comment: Brooksi men Type: BLOOD SPECIMENOrdering Facility: [facility] Address: [address] [place] [address] Result Comment: The [place] Diabetes Association (ADA) provides guidance for cutoff values for fasting glucose and random glucose. The ADA defines fasting as no caloric intake for at least 8 hours. Fasting plasma glucose results between 100 to 125 mg/dL indicate increased risk for diabetes (prediabetes). Fasting plasma glucose results greater than or equal to 126 mg/dL meet the criteria for diagnosis of diabetes. In the absence of unequivocal hyperglycemia, results should be confirmed by repeat testing. In a patient with classic symptoms of hyperglycemia or hyperglycemic crisis, random plasma glucose results greater than or equal to 200 mg/dL meet the criteria for diagnosis of diabetes. Reference: Standards of Medical Care in Diabetes 2016, [place] Diabetes Association. Diabetes Care. 2016.39(Suppl 1). Performed By: #### 2 4323-8 ####[facility]ORATORYCLIA [id number] [place] [id number] [place] Potassium [Moles/Vol] 4.2 mmol/L Normal 3.7-5.1 [facility] Comment on above: Order Comment: Brooksi men Type: BLOOD SPECIMENOrdering Facility: [facility] Address: [address] [place], [place] [id number] Performed By: #### 2 4323-8 ####[facility] LABORATORYIA [id number] [place] [id number] [place] Protein [Mass/Vol] 5.7 g/dL Low 6.3-8.0 [facility] Comment on above: Order Comment: Luz men Type: BLOOD SPECIMENOrdering Facility: [facility] Address: [address] [place] [address] Performed By: #### 2 4323-8 ####[facility] LABORATORYCLIA [id number] [place] [id number] [facility] Sodium [Moles/Vol] 140 mmol/L Normal 136-144 [facility] Comment on above: Order Comment: Speci men Type: BLOOD SPECIMENOrdering Facility: [facility] Address: [address] [place] [address] Performed By: #### 2 4323-8 ####[facility] LABORATORYCLIA [id number] [address] Urea nitrogen [Mass/Vol] 22 mg/dL Normal 9-24 [facility] Comment on above: Order Comment: Speci men Type: BLOOD SPECIMENOrdering Facility: [facility] Address: [address] [place] [address] Performed By: #### 2 4323-8 ####[facility] LABORATORYCLIA [id number] [address] NURSING PROGon 01-22-2022 NURSING PROG HNO ID: [id number] Author: Myrna Rowland, LEATHA Service: ? Author Type: Registered Nurse Type: Nursing Progress Note Filed: 01/22/2022 7:05 PM Note Text: Nursing Progress Note Patient Name: José Manuel Ashton Patient Location: [address]- Daily Note: 0700 - Assumed care of patient. 0850 - Patient reports 7/10 back and abdomen pain, 7/10 anxiety, 0/10 depression and says that he slept "alright". He denied having SI/HI and AV/H. He was encouraged to attend/participate in unit's groups and use callbell for s/sx of dizziness/weakness. Will continue to monitor per doctor's orders/unit's policies. 1145 - Bladder scan performed. Zero recorded. 1150 - Patient reports 7/10 back and abdomen pain but continues to decline pain medications. 1653 - Patient reports 8/10 back and abdomen pain but continues to decline pain mediations. 1900 - End of the shift's vital signs BP 132/75 Pulse 80 Temp 36.6 ?C (97.9 ?F) (Oral) Resp 16 Ht 177.8 cm (5' 10") Wt 115.7 kg (255 lb 0.3 oz) SpO2 95% BMI 36.59 kg/m? Blood glucose @0839 is 122. Blood glucose @1159 is 200. Blood glucose @1543 is 291. This note was completed by: Myrna Rowland [facility] NURSING PROG HNO ID: [id number] Author: Natasha Levine RN Service: Nursing Author Type: Registered Nurse Type: Nursing Progress Note Filed: 01/22/2022 6:48 AM Note Text: Nursing Progress Note Patient Name: José Manuel Ashton Patient Location: [id number] Daily Note: [id number] A/O x 3 and out in common area during the evening hours. Ate snack with peers and watching TV. Social and pleasant. Med compliant and makes needs known. Up with one guarded assist and cane for short distances. Unsteady and c/o frequent vertigo when standing. Uses wheelchair to go down to common area, verbally agreed to comply with fall precautions while on the unit. Denies SI, HI, and AVH. Stated, "The staff on the 4th floor thought I needed to come here for depression." Admitted, "I guess because I'm always in pain- I probably am a little depressed, but I am definitely frustrated and angry because of it." In control and cooperative with care. No prns and safety maintained. 0630- Slept fairly well overnight. Makes needs known and follows directions. Cooperative with fall precautions and safety maintained. Sleep hours= 6 This note was completed by: Natasha Levine [facility] Bacteria Ur Culton 2 Bacteria identified Cx Nom (U) ORGANISM ID: 1 <10,000 CFU/ml Mixed microbiota No further workup. Mixed microbiota can be due to???urine???contamination with skin bacteria at time of collection or presence of a long-term urinary catheter. If a new culture is needed, please consider re-education of the patient on proper midstream collection technique or straight catheterization for???urine???collection. [facility] Comment on above: Performed By: #### 6 30-4 ####[facility] LABCLIA [id number] [address] [place] CASE MGT INIT ASSESon 2021 CASE MGT INIT SANDOVAL HNO ID: [id number] Author: OSCAR Lopez Service: Social Work Author Type: Finishing Room Operator Type: Care Mgt Initial Assessment Filed: 01/21/2022 11:16 AM Note Text: BEHAVIORAL HEALTH SOCIAL WORK/CARE MANAGEMENT ASSESSMENT AND DISCHARGE PLAN SERVICE DATE: 01/21/2022 SERVICE TIME: 9:14 AM Reason for Admission: Per intake note on 01/19/2022: Nature of the crisis: depression leading to medication noncompliance Presenting Problem: José Manuel Ashton is a 61 year old male referred by [facility] for depression. Per Psych consult 01/19/2022 by Rafal Fuentes PA-C "Mood is "not good." Feels "angry" most of the days. Feels "kind of" anxious today. Vague about his depression. "I probably need help. I don't want to go backwards. I'm going backwards. I don't know. I don't know what is going on." Endorses low motivation, low energy. Endorses sleep difficulties. Admits difficulties managing his medicine. Says his concentration is probably not very good. Endorses feeling overwhelmed: "I don't know what is going on.... too many things with my health. I don't know if I will get better." When asked if he has wishes, states "I don't know." He denies thoughts to hurt himself or end his life. Denies hallucinations. " Pt was admitted medically on 01/17 for elevated glucose levels. Pt had stopped taking his medications. Given concerns for his depression to be affecting his quality of life and his ability to care for himself, voluntary admission to inpatient psychiatry recommended for further evaluation and care. Patient is agreeable. Per ED quill worker Roxanne MOORE on 01/17 This food writer assessed patient via face to face who presents alert and oriented x 4, appears overweight and disheveled, speech is within normal limits appropriate to tone, prosody, melody, phonetic, and syntax, thought process is linear and organized, difficulty concentrating at times, and a poor historian,, mood is depressed with flat affect, with impaired judgement and insight into illness. Patient reports that his Machine Operator Farmworker sent him to the emergency room for a psychiatric evaluation due to not taking his medications. Patient states that he doesn't know why he doesn't take them ?I just don't do it, I don't know why?. Patient denies that he does this in an attempt to sooner although he states ?I've just given up, nothing seems to be getting better, I have too many things going on?. This food writer inquires if patient believes he will get better without taking his medications consistently, in which, patient states ?I don't know?. Patient denies any suicidal ideation or previous suicide attempts. Patient endorses depressive symptoms of feeling hopeless, worthless, dysphoria, anhedonia, isolation, lack of motivation, poor sleep patterns, lack of appetite ?I starve myself because my sugar is so dolores high?, and lack of energy. Patient denies any homicidal ideation, auditory or visual hallucinations, or self-injurious behaviors. Patient endorses BRANDAN symptoms of nightmares, restlessness, anxiety, and constant worry. Patient denies any hx of abuse and states he had 16 siblings, he was number 17. Patient reports that he is supposed to see a psychiatrist and a therapist and take psychotropic medications, but he is non-compliant. Patient states he did not feel they helped although he admitted that he was not taking the medications consistently and missed dosages. Patient reports to smoking THC daily and denies any alcohol use in 40 years although his BAL was 29. Patient does use a wheelchair and states that he has been forced to a [facility] in the past for not caring for himself. This food writer discussed with patient potential for a [facility] nurse to come into home to assist with his medication management to ensure he is caring for self properly and taking medications. Patient has been calm and cooperative in the ED with no restraints or medications administered. " Legal Status: Voluntary Important Contacts: Meche Sanders (sister) [phone] Marek Ashton (Brother) [phone] Does the patient/off premise service representative consent to contact with the above at this time? Unknown Information obtained from: Chart Patient Referred by: Medical Team Living Arrangements Prior to Admission: Relative's Home Prior to Admission, Patient was Living with: Sister and Brother Marital Status: Single, Never Children (including quality of relationship): Patient does not have any children Sexual Orientation: Unknown SOCIAL HISTORY José Manuel Ashton was born and raised in [place], [place] by his mother and father. Pt is the youngest of 17 children. Trauma and Abuse History (emotional, mental, physical, sexual, verbal, neglect, other): No, Patient/Social Media Senior Associate Denies Education History: Some High School Highest Grade Completed: pt reportedly dropped out of high school in 9th grade. Support System: L (more content not included)... [facility] CONSULTon 01-21-2022 CONSULT HNO ID: [id number] Author: Philip Mayfield DPM Service: Podiatry Author Type: Resident Type: Consults Filed: 01/21/2022 5:33 PM Note Text: -- Attestation signed by Park Bobo DPM at 02/17/2022 12:40 PM podiatry -- -- Summary: Diabetic Neuropathy and elongated toe nails -- Podiatry INITIAL CONSULT NOTE SERVICE DATE: 01/21/2022 SERVICE TIME: 5:28 PM REASON FOR CONSULT: Diabetic Neuropathy/ Elongated Toe nails REQUESTING PHYSICIAN: Dr. Mike Wagner PRIMARY CARE PHYSICIAN: DO Leila Ellsworth Mr. Ashton is a 61 year old male who presents for Diabetic neuropathy. Patient says he has had numbness in his feet for about 15 years. The patient says his blood sugars run around 200. The patient says he is unable to reach his feet. Patient denies constitutional symptoms. Patient denies any other pedal issues. 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 Ahmadi FAMILY HISTORY Problem Relation Age of Onset other (Heart stroke) Mother other (Glaucoma lung cancer) Father Glaucoma Sister Glaucoma Brother Social History Tobacco Use Smoking status: Former Packs/day: 1.00 Years: 37.00 Pack years: 37.00 Types: Cigarettes Quit date: 04/03/2010 Years since quittin.8 Smokeless tobacco: Never Tobacco comments: Smokes [place] Vaping Use Vaping Use: Never used Substance Use Topics Alcohol use: Not Currently Drug use: Yes Types: Marijuana Comment: daily tamsulosin (FLOMAX) 0.4 mg, Take 1 capsule by mouth once daily., Disp: 90 capsule, Rfl: 5, 01/20/2022 pioglitazone (ACTOS) 45 mg tablet, Take 1 tablet by mouth once daily., Disp: 90 tablet, Rfl: 3, 01/20/2022 metFORMIN ER (GLUCOPHAGE XR) 500 mg 24 hr tablet, Two tablets before breakfast and before supper, Disp: 120 tablet, Rfl: 1, 01/20/2022 insulin glargine (LANTUS SOLOSTAR, BASAGLAR KWIKPEN) 100 unit/mL (3 mL), Inject 26 Units subcutaneously daily at bedtime., Disp: 6 Pen, Rfl: 1, 01/19/2022 at 2100 dulaglutide (TRULICITY) 1.5 mg/0.5 mL pen injector, Inject 1.5 mg subcutaneously one time a week., Disp: 4 Each, Rfl: 1, Not Taking Insulin [place], Disposable, (COMFORT EZ PEN NEEDLES) 29 gauge x 1/2", 1 Each once daily., Disp: 100 Each, Rfl: 3, Not Taking blood sugar diagnostic (BLOOD GLUCOSE TEST) test strip, 3x/day, Disp: 100 Strip, Rfl: 11, Not Taking Blood-Glucose Meter monitoring kit, For monitoring sugars 3x/day (patient on insulin), Disp: 1 Each, Rfl: 1, Not Taking Lancets lancets, Use as instructed 3x/day, Disp: 100 Each, Rfl: 11, Not Taking alcohol swabs (ALCOHOL PREP PADS), Apply 1 application to affected area as directed., Disp: 100 Each, Rfl: 3, Not Taking Current Facility-Administered Medications Medication Dose Route Frequency haloperidol 5 mg tab(s) (HALDOL) 5 mg ORAL q 4 H PRN Or haloperidol lactate 5 mg short-acting injection (HALDOL) 5 mg INTRAMUSCULAR q 4 H PRN benztropine 2 mg injection (COGENTIN) 2 mg INTRAMUSCULAR q 30 MIN PRN diphenhydrAMINE 50 mg injection (BENADRYL) 50 mg INTRAMUSCULAR q 30 MIN PRN dextrose 40 % 15 g 15 g ORAL PRN Or glucagon 1 mg injection 1 mg INTRAMUSCULAR PRN Or dextrose 10% iv bolus 12.5 g INTRAVENOUS PRN aluminum-magnesium hydroxide-simethicone 200-200-20 mg/5 mL 30 mL (MAALOX,MYLANTA,MAG-AL PLUS) 30 mL ORAL DAILY PRN acetaminophen 650 mg tab(s) (TYLENOL) 650 mg ORAL q 6 H PRN insulin lispro injection (rapid acting) (ADMELOG) SUBCUTANEOUS AT BEDTIME lisinopril 20 mg tab(s) (ZESTRIL, PRINIVIL) 20 mg ORAL DAILY tamsulosin 0.4 mg cap(s) (FLOMAX) 0.4 mg ORAL AT BEDTIME insulin lispro injection (rapid acting) (ADMELOG) SUBCUTANEOUS w MEALS pioglitazone (ACTOS) tab(s) 45 mg 45 mg ORAL DAILY docusate sodiu (more content not included)... Normal [facility] HAV IgM Ser Qlon 01-21-2022 HAV IgM Ql (S) Negative Normal Negative [facility] Comment on above: Order Comment: Speci clement Type: BLOOD SPECIMEN [facility] Address: [address] [place] [phone] Result Comment: No e vidence of recent infection with Hepatitis A virus. Performed By: #### 5 8410-2 #### [facility] CLIA [id number] [address] [place] [address] OF [facility] HBV core IgM Ser Qlon 2021 HBV core IgM Ql (S) Negative Normal Negative [facility] Comment on above: Order Comment: Speci clement Type: BLOOD SPECIMEN [facility]: [facility] Address: [address] [place], [place] [phone] Result Comment: No e vidence of recent infection with Hepatitis B virus. Should recent infection be suspected, repeat testing may be considered 3-4 weeks after this draw. Performed By: #### 5 8410-2 #### [facility] CLIA [id number] [address] [place] [address] [place] HBV surface Ab IA Ql (S)on 1 HBV surface Ag Ql (S) Negative Normal Negative [facility] Comment on above: Order Comment: Specjonas vaughan Type: BLOOD SPECIMEN [facility] Address: [address] [place] [address] Performed By: #### 5 8410-2 #### [facility] CLIA [id number] [address] [place] [address] [place] HCV RNA SerPl BETO+probe-aCnc on 01-21-2022 HCV RNA BETO+probe Qn Not detected Normal HCV RNA not detected by PCR. [facility] Comment on above: Order Comment: Luz vaughan Type: BLOOD SPECIMENOrdering Facility: [facility] Address: [address] [place] [address] Performed By: #### 1 1011-4 ####[facility] LABCLIA [id number] [address] OF [facility] HISTORY PHYSICALon HISTORY PHYSICAL HNO ID: [id number] Author: Yarely Dejesus MD Service: Psychiatry Author Type: Resident Type: HANDP Filed: 01/20/2022 11:49 PM Note Text: -- Attestation signed by Luis Carlos Short Jr., MD at 01/21/2022 2:08 PM Patient examined this morning with Buddy Keating Patricia and chart reviewed. I confirmed jiang components of Dr. Dejesus's findings and plan herein upon my evaluation and agree with her assessment and initial plan with the following amendments and additions. 61 yo SM with h/o depression, treatment non-compliance, chronic pain related to multiple orthopedic injuries, cannabis dependence, irritability and mood swings admitted from medicine service d/t self-neglect with medical care and wildly uncontrolled DM (HgA1c > 13, inexplicable non-adherence with prescribed insulin at home). Pt describes mood lability, anger dyscontrol, social withdrawal, and medication non-compliance as primary issues that affect him and seem to vex him in terms of process behind them. Is amenable to medication adjustment for mood symptoms, temper. Reports cannabis as being "only thing that helps my pain" and helps settle him. Resists exploration of motivations for his non-adherence. Encourage group activity, offer venlafaxine trial as per C/L service (no apparent cardiac or other contraindications), and trial low dose depakote for impulsivity, mood instability, irritability, anger dyscontrol. He reports a trial of duloxetine "for a couple months" as being without benefit for mood or pain symptoms. No SI/HI/ appreciated on exam and no evidence delusions, hallucinations nor manic features. Aim link with psychotherapy and pain management post-discharge. Another attempt at diabetes education with nutrition in house, and outpatient follow up with educator, oyster unloader could be helpful. Luis Carlos Short Jr, MD January 21, 2022 2:05 PM -- HISTORY AND PHYSICAL BEHAVIORAL HEALTH Patient Name: José Manuel Ashton Service Date: 01/20/2022 Service Time: 10:50 PM Reason for Admission: Depression Subjective HPI: Chief complaint: José Manuel Ashton presents for admission secondary to Inability to care for self. Medical Course: Utox +THC. BAL 29. Pertinent Labs: A1c 13.4. Insulin Glargine increased to 33units at bedtime. Vitals stable prior to transfer to behavioral health unit. Per Behavioral Health Intake Note on 01/19/22: Per Psych consult 01/19/2022 by Rafal Fuentes PA-C "Mood is "not good." Feels "angry" most of the days. Feels "kind of" anxious today. Vague about his depression. "I probably need help. I don't want to go backwards. I'm going backwards. I don't know. I don't know what is going on." Endorses low motivation, low energy. Endorses sleep difficulties. Admits difficulties managing his medicine. Says his concentration is probably not very good. Endorses feeling overwhelmed: "I don't know what is going on.... too many things with my health. I don't know if I will get better." When asked if he has wishes, states "I don't know." He denies thoughts to hurt himself or end his life. Denies hallucinations. " Pt was admitted medically on 01/17 for elevated glucose levels. Pt had stopped taking his medications. Given concerns for his depression to be affecting his quality of life and his ability to care for himself, voluntary admission to inpatient psychiatry recommended for further evaluation and care. Patient is agreeable. Per ED quill worker Roxanne MOORE on 01/17 This food writer assessed patient via face to face who presents alert and oriented x 4, appears overweight and disheveled, speech is within normal limits appropriate to tone, prosody, melody, phonetic, and syntax, thought process is linear and organized, difficulty concentrating at times, and a poor historian,, mood is depressed with flat affect, with impaired judgement and insight into illness. Patient reports that his Machine Operator Farmworker sent him to the emergency room for a psychiatric evaluation due to not taking his medications. Patient states that he doesn't know why he doesn't take them ?I just don't do it, I don't know why?. Patient denies that he does this in an attempt to sooner although he states ?I've just given up, nothing seems to be getting better, I have too many things going on?. This food writer inquires if patient believes he will get better without taking his medications consistently, in which, patient states ?I don't know?. Patient denies any suicidal ideation or previous suicide attempts. Patient endorses depressive symptoms of feeling hopeless, worthless, dysphoria, anhedonia, isolation, lack of motivation, poor sleep patterns, lack of appetite ?I starve myself because my sugar is so dolores high?, and lack of energy. Patient denies any ho (more content not included)... [facility] NURSING PROGon 01-21-2022 NURSING PROG HNO ID: [id number] Author: Huong Glass, RN Service: Nursing Author Type: Counselor Type: Nursing Progress Note Filed: 01/21/2022 7:35 PM Note Text: [id number] Assumed care of pt sitting on edge of bed alert and oriented x 3 denies SI, HI, AVH pt unsure why he is here does acknowledge anger issues. Pt complains of pain 8 out of 10 in his low back and groin offered PRN Acetaminophen pt declined verbalizing it don't help. Pt ambulates with a cane and very unsteady gait physical therapy consult in. This food writer provided pt with wheelchair and front wheeled walker. Medication compliant whole with water. Accu checks AC AND HS with sliding scale coverage. Continent of bowel and bladder set up for ADL's. Calm and cooperative with care, pleasant and social with peers. Participated in group activities. Security notified of personal vehicle in parking lot. Safety precautions maintained. [facility] Reagin and Treponema pallidu m IgG and IgM [Interp]on 01-21-2022 SYPHILIS INTERPRETATION Cannot exclude recent Treponemal infection if specimen collected within 7-10 days after appearance of suspect lesions or 2-3 weeks after an exposure. Clinical correlation is required. [facility] Comment on above: Order Comment: Speci men Type: BLOOD SPECIMEN Ordering Facility: [facility] Address: [address] [place] [address] Performed By: #### 5 8410-2 #### [facility] CLIA [id number] [address] [place] [address] [place] T. pallidum IgG+IgM IA Ql (S) Non-Reactive [place] Nonreactive [facility] Comment on above: Order Comment: Speci men Type: BLOOD SPECIMEN Ordering Facility: [facility] Address: [facility] [place] [address] Performed By: #### 5 8410-2 #### [facility] CLIA [id number] [address] THERAPY NTon 01-21-2022 THERAPY NT HNO ID: [id number] Author: Prasanth Jeronimo, PT Service: Physical Therapy Author Type: Physical Therapist Type: Therapy (PT/OT/Speech/Resp) Filed: 01/21/2022 2:32 PM Note Text: Physical Therapy Evaluation SERVICE DATE: 01/21/2022 SERVICE TIME: 1341 to 1408 ROOM: [place] [address] Recommended Discharge Disposition: Subacute/SNF Recommended Discharge Disposition Comments: Pt unsteady during session but was able to recover from LOB with cane well with CGA or Kevin. Pt adamant against going to a SNF and does not want PT because he states it only makes him hurt worse. Pt not receptive to PT recommendations to make mobility safer. Pt stated he is mobilizing close to baseline. Rec SNF and if pt declines rec Home PT. Recommended Discharge Disposition Due to: Patient requires daily, facility-based rehabilitation from at least one discipline due to:;decline in functional status requiring daily skilled care;ongoing intervention of multiple therapy disciplines Anticipated Discharge Needs: Physical Assist at Home Physical Assist at Home for: Cleaning;Laundry;Transfers ;Ambulation;Shopping;Trans portation Recommended Discharge Equipment: To Be Determined PT 6 Clicks Score: 22 Precautions/Activity Restrictions: Fall Risk Current Hospital Course: admitted to geriatric psych floor Reason for Hospital Admission: hyperglycemic; presents the emergency department 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, poorly controlled DM2, CKD, lumbar radiculopathy, HLD, HTN, diverticulosis, rectal adenocarcinoma status post rectal tumor resection Response to Therapy Interventions: Good participation in activities, Pain, Requires additional time to complete activities, Requires encouragement to complete activities Continue skilled needs due to: Functional mobility/skill impairments, Safety concerns Physical Therapy Problem List: Pain;Decreased Strength;Decreased Range Of Motion;Decreased Activity Tolerance;Balance Impaired;Functional Mobility Impairment Treatment Interventions: Education;Strengthening;Fu nctional Mobility Training;Balance Training;Pain Management Plan for next visit: Bed mobility, Gait training, Standing Balance Home Environment Patient Lives With: Family (brother and sister) Assistance Available: 24-Hour Entry To Home: Stairs;With Rail Number Of Stairs Into Home: 5 Number Of Stairs To Bed/Bath: 0 Tub/Shower Type: tub shower Laundry: basement Equipment Owned: Cane Prior Functional Level: Within Functional Limits Prior Functional Level Comments: patient reports being completely independent prior to admission uses cane for ambulation. Pt stated he is typically unsteady but can self correct. No falls this past year. Patient Report: "What the hell am I doing here? They sent me to the [facility]" CURRENT FUNCTIONAL STATUS: Most recent performance Current Functional Mobility Assist Level Additional Information Rolling Supine to Sit Independent Sit to Supine Independent Scooting Independent Sit to Stand Supervision Stand to Sit Supervision Bed to Chair Supervision Bed To Chair Transfer Type: Stepping Bed To Chair Transfer Equipment: Cane Toilet/Commode Gait Contact Guard Assistance;Minimal Assistance;Additional Information Gait Device: Cane Gait Distance (feet): 80 ft Pt appears unsteady throughout, however stated that is his baseline due to the L groin pain and hx of vertigo. Pt able to use cane successfully to recover majority of time, but did require min A 1x. Pt refuses to trial WW or 2 canes. Stairs Curb Step Car Transfer Blank cunningham indicate activity not attempted Gait Deviations Left Lower Extremity: Weight bearing decreased;Stance time decreased;Foot clearance decreased;Lacks hip extension beyond mid-stance;Push off during terminal stance decreased General Deviations/Observations: Antalgic gait;Melody decreased;Step length decreased;UE weight bearing on assistive device excessive Light Touch/Deep Pressure Deficit: reports numbness in LLE but able to feel light touch Range of Motion: WFL Except;ROM Limitation Comments ROM Limitation Comments: LLE limited by pain Strength: Strength Limitation Comments;WFL Except Strength Limitation Comments: BLE WFL and at least 4+/5, except L hip flex 3/5 due to groin pain Balance: Dynamic Sitting;Dynamic Standing Dynamic Sitting Balance: Normal Patient accepts maximal challenge and can shift weight easily within full range in all directions Dynamic Standing Balance: Fair Patient accepts minimal challenge, able to maintain balance while turning head/trunk -HLM: 7: Walk 25 feet or more Learning/Educational Needs: Discharge Plan;Equipment;Functional Activities/Mobility;Plan of Care;Rehabilitation Techniques and Procedures;Safety Goals for Plan of Care: Patient /Caregiver Goal (more content not included)... Normal [facility] URINALYSIS, REFLEX MICROSCOP ICon 01-21-2022 Bacteria LM.HPF (Urine sed) [#/Area] Rare Abnormal None Seen [facility] Comment on above: Order Comment: Speci men Type: URINE SPECIMENOrdering Facility: [facility] Address: [address] [place] [address] Performed By: #### L [id number] ####[facility] [id number] [address] [place] [address] [place] Bilirubin Ql (U) Negative Normal Negative [facility] Comment on above: Order Comment: Speci men Type: URINE SPECIMENOrdering Facility: [facility] Address: [address] [place] [address] Performed By: #### L [id number] ####[facility] [id number] [address] [place] [address] [place] Clarity (Unsp spec) Clear Normal Clear [facility] Comment on above: Order Comment: Speci men Type: URINE SPECIMENOrdering Facility: [facility] Address: [address] [place] [address] Performed By: #### L [id number] ####[facility] [id number] [address] [place] [address] [place] Color (U) Yellow Normal Yellow [facility] Comment on above: Order Comment: Speci men Type: URINE SPECIMENOrdering Facility: [facility] Address: [address] [place] [address] Performed By: #### L [id number] ####[facility] [id number] [address] [place] [address] [place] Glucose Test strip (U) [Mass/Vol] 2+ Abnormal Negative [facility] Comment on above: Order Comment: Speci men Type: URINE SPECIMENOrdering Facility: [facility] Address: [facility] [place] [address] Performed By: #### L [id number] ####[facility] [id number] [address] [place] [address] [place] [facility] Hemoglobin Ql (U) 1+ Abnormal Negative [facility] Comment on above: Order Comment: Speci men Type: URINE SPECIMENOrdering Facility: [facility] Address: [address] [place], [place] [address] Performed By: #### L [id number] ####[facility] [id number] [address] [place], [place] [id number] [place] [facility] Ketones Ql (U) Trace Abnormal Negative [facility] Comment on above: Order Comment: Speci men Type: URINE SPECIMENOrdering Facility: [facility] Address: [address] [place] [address] Performed By: #### L [id number] ####[facility] [id number] [address] [place], [place] [address] [place] [facility] Leukocyte esterase Test strip Ql (U) Negative Normal Negative [facility] Comment on above: Order Comment: Speci men Type: URINE SPECIMENOrdering Facility: [facility] Address: [address] [place] [address] Performed By: #### L [id number] ####[facility] [id number] [address] [place], [place] [address] [place] Nitrite Ql (U) Negative Normal Negative [facility] Comment on above: Order Comment: Speci men Type: URINE SPECIMENOrdering Facility: [facility] Address: [address] [place] [address] Performed By: #### L [id number] ####[facility] [id number] [address] [place] [address] [place] pH (U) 5.5 [pH] Normal 5.0-8.0 [facility] Comment on above: Order Comment: Speci men Type: URINE SPECIMENOrdering Facility: [facility] Address: [address] [place] [address] Performed By: #### L [id number] ####[facility] [id number] [address] [place] [address] [place] Protein (U) [Mass/Vol] Normal [facility] Comment on above: Order Comment: Speci men Type: URINE SPECIMENOrdering Facility: [facility] Address: [address] [place] [address] Result Comment: Visi ble blood causes falsely elevated results for analyte Protein. Due to this limitation, Protein will not be reported for patients whose urine contains visible blood. Performed By: #### L [id number] ####[facility] [id number] [address] [place] [address] [place] RBC LM.HPF (Urine sed) [#/Area] 0-3 /HPF Normal 0-3 /HPF [facility] Comment on above: Order Comment: Speci men Type: URINE SPECIMENOrdering Facility: [facility] Address: [address] [place] [address] Performed By: #### L [id number] ####[facility] [id number] [place] [address] [place] Specific gravity (U) [Rel density] >=1.030 High 1.005-1.030 [facility] Comment on above: Order Comment: Speci men Type: URINE SPECIMENOrdering Facility: [facility] Address: [address] [place] [address] Performed By: #### L [id number] ####[facility] [id number] [address] [place] Urobilinogen Ql (U) 0.2 EU/dL Normal 0.2-1.0 EU/dL [facility] Comment on above: Order Comment: Speci men Type: URINE SPECIMENOrdering Facility: [facility] Address: [address] [place], [place] [address] Performed By: #### L [id number] ####[facility] [id number] [place] [address] [place] WBC LM.HPF (Urine sed) [#/Area] 0-5 /HPF Normal 0-5 /HPF [facility] Comment on above: Order Comment: Speci men Type: URINE SPECIMENOrdering Facility: [facility] Address: [address] [place], [place] [address] Performed By: #### L [id number] ####[facility] [id number] [place] [address] [place] Basic metabolic 2000 panelon 01-20-2022 Anion gap [Moles/Vol] 8 mmol/L Low 9-18 [facility] Comment on above: Order Comment: Speci men Type: BLOOD SPECIMEN Ordering Facility: [facility] Address: [address] [place], [place] [address] Performed By: #### 5 8410-2 #### [facility] CLIA [id number] [address] [place] [address] [place] Calcium [Mass/Vol] 9.1 mg/dL Normal 8.5-10.2 [facility] Comment on above: Order Comment: Speci men Type: BLOOD SPECIMEN Ordering Facility: [facility] Address: [address] [place], [place] [address] Performed By: #### 5 8410-2 #### [facility] CLIA [id number] [address] [place], [place] [address] [place] Chloride [Moles/Vol] 103 mmol/L Normal 97-105 [facility] Comment on above: Order Comment: Speci men Type: BLOOD SPECIMEN Ordering Facility: [facility] Address: [address] [place] [address] Performed By: #### 5 8410-2 #### [facility] CLIA [id number] [address] [place], [place] [address] [place] CO2 [Moles/Vol] 27 mmol/L Normal 22-30 [facility] Comment on above: Order Comment: Speci men Type: BLOOD SPECIMEN Ordering Facility: [facility] Address: [address] [place] [address] Performed By: #### 5 8410-2 #### [facility] CLIA [id number] [address] [place] [address] [place] Creatinine [Mass/Vol] 1.10 mg/dL Normal 0.73-1.22 [facility] Comment on above: Order Comment: Speci men Type: BLOOD SPECIMEN Ordering Facility: [facility] Address: [address] [place] [address] Performed By: #### 5 8410-2 #### [facility] [place] [id number] [facility] [place] [address] [place] ESTIMATED GLOMERULAR FILTRATION RATE 76 mL/min/1.73m??? Normal >=60 [facility] Comment on above: Order Comment: Speci men Type: BLOOD SPECIMEN Ordering Facility: [facility] Address: [address] [place] [address] Result Comment: Breanne mated Glomerular Filtration Rate (eGFR) is calculated using the 2020 CKD-EPI creatinine equation. This equation utilizes serum creatinine, sex, and age as parameters. The creatinine assay has traceable calibration to isotope dilution-mass spectrometry. Refer to KDIGO guidelines for clinical interpretation. In patients with unstable renal function, e.g. those with acute kidney injury, the eGFR may not accurately reflect actual GFR. Performed By: #### 5 8410-2 #### [facility] CLIA [id number] [address] [place], [place] [address] [place] Glucose [Mass/Vol] 173 mg/dL High 74-99 [facility] Comment on above: Order Comment: Luz vaughan Type: BLOOD SPECIMEN Ordering Facility: [facility] Address: [address] [place], [place] [address] Result Comment: The [place] Diabetes Association (ADA) provides guidance for cutoff values for fasting glucose and random glucose. The ADA defines fasting as no caloric intake for at least 8 hours. Fasting plasma glucose results between 100 to 125 mg/dL indicate increased risk for diabetes (prediabetes). Fasting plasma glucose results greater than or equal to 126 mg/dL meet the criteria for diagnosis of diabetes. In the absence of unequivocal hyperglycemia, results should be confirmed by repeat testing. In a patient with classic symptoms of hyperglycemia or hyperglycemic crisis, random plasma glucose results greater than or equal to 200 mg/dL meet the criteria for diagnosis of diabetes. Reference: Standards of Medical Care in Diabetes 2016, [place] Diabetes Association. Diabetes Care. 2016.39(Suppl 1). Performed By: #### 5 8410-2 #### [facility] CLIA [id number] [address] [place] [address] [place] Potassium [Moles/Vol] 3.8 mmol/L Normal 3.7-5.1 [facility] Comment on above: Order Comment: Luz vaughan Type: BLOOD SPECIMEN Ordering Facility: [facility] Address: [address] [place], [place] [address] Performed By: #### 5 8410-2 #### [facility] CLIA [id number] [address] [place] [address] [place] Sodium [Moles/Vol] 138 mmol/L Normal 136-144 [facility] Comment on above: Order Comment: Luz vaughan Type: BLOOD SPECIMEN Ordering Facility: [facility] Address: [address] [place], [place] [address] Performed By: #### 5 8410-2 #### [facility] CLIA [id number] [address] [place] [address] [place] Urea nitrogen [Mass/Vol] 17 mg/dL Normal 9-24 [facility] Comment on above: Order Comment: Brooksi men Type: BLOOD SPECIMEN Ordering Facility: [facility] Address: [address] [place], [place] [address] Performed By: #### 5 8410-2 #### [facility] CLIA [id number] [address] CBC panel Auto (Bld)on 01-20 Erythrocyte distribution width (RBC) [Ratio] 12.8 % Normal 11.5-15.0 [facility] Comment on above: Order Comment: Speci men Type: BLOOD SPECIMENOrdering Facility: [facility] Address: [address] [place] [address] Performed By: #### 5 8410-2 ####[facility] [id number] [address] [place] Hematocrit (Bld) [Volume fraction] 41.1 % Normal 39.0-51.0 [facility] Comment on above: Order Comment: Speci men Type: BLOOD SPECIMENOrdering Facility: [facility] Address: [address] [place], [place] [address] Performed By: #### 5 8410-2 ####[facility] [id number] [address] [place] Hemoglobin (Bld) [Mass/Vol] 13.8 g/dL Normal 13.0-17.0 [facility] Comment on above: Order Comment: Speci men Type: BLOOD SPECIMENOrdering Facility: [facility] Address: [address] [place], [place] [address] Performed By: #### 5 8410-2 ####[facility] [id number] [address] [place] MCH (RBC) [Entitic mass] 28.6 pg Normal 26.0-34.0 [facility] Comment on above: Order Comment: Speci men Type: BLOOD SPECIMENOrdering Facility: [facility] Address: [address] [place], [place] [address] Performed By: #### 5 8410-2 ####[facility] [id number] [address] [place], [place] [address] [place] [facility] MCHC (RBC) [Mass/Vol] 33.6 g/dL Normal 30.5-36.0 [facility] Comment on above: Order Comment: Speci men Type: BLOOD SPECIMENOrdering Facility: [facility] Address: [address] [place] [address] Performed By: #### 5 8410-2 ####[facility] [id number] [address] [place] [address] [place] MCV (RBC) [Entitic vol] 85.1 fL Normal 80.0-100.0 [facility] Comment on above: Order Comment: Speci men Type: BLOOD SPECIMENOrdering Facility: [facility] Address: [address] [place] [address] Performed By: #### 5 8410-2 ####[facility] [id number] [address] [place] [address] Nucleated RBC (Bld) [#/Vol] 10*3/uL Normal <0.01 [facility] Comment on above: Order Comment: Speci men Type: BLOOD SPECIMENOrdering Facility: [facility] Address: [address] [place] [address] Performed By: #### 5 8410-2 ####[facility] [id number] [place] [id number] [place] [facility] Platelet mean volume (Bld) [Entitic vol] 10.0 fL Normal 9.0-12.7 [facility] Comment on above: Order Comment: Speci men Type: BLOOD SPECIMENOrdering Facility: [facility] Address: [address] [place] [address] Performed By: #### 5 8410-2 ####[facility] [id number] [address] [place] Platelets (Bld) [#/Vol] 246 10*3/uL Normal 150-400 [facility] Comment on above: Order Comment: Speci men Type: BLOOD SPECIMENOrdering Facility: [facility] Address: [address] [place] [address] Performed By: #### 5 8410-2 ####[facility] [id number] [place] [id number] [facility] RBC (Bld) [#/Vol] 4.83 10*6/uL Normal 4.20-6.00 [facility] Comment on above: Order Comment: Speci men Type: BLOOD SPECIMENOrdering Facility: [facility] Address: [address] [place] [address] Performed By: #### 5 8410-2 ####[facility] [id number] [address] WBC (Bld) [#/Vol] 6.90 10*3/uL Normal 3.70-11.00 [facility] Comment on above: Order Comment: Speci men Type: BLOOD SPECIMENOrdering Facility: [facility] Address: [address] [place] [address] Performed By: #### 5 8410-2 ####[facility] [id number] [place] [id number] [facility] CNDSon 01-20-2022 CNDS HNO ID: [id number] Author: Kylah Orantes MD Service: ? Author Type: Physician Type: Discharge Summary Filed: 02/06/2022 12:28 PM Note Text: Internal Medicine discharge summery PATIENT NAME: José Manuel Ashton Discharge DATE: 01/20/2022 A 61-year-old, who was admitted to the hospital after seen today by his physician for a psych evaluation. 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 ASSESSMENT AND PLAN: 1. Hyperglycemia 2. Drug alcohol abuse. 3. Hypertension. 4. lower quadrant abdominal pain resolved PAST MEDICAL HISTORY PAST MEDICAL HISTORY Diagnosis No new complain no cp no sob no abd pain Clear by consultants to D/C meds reviewed /condition is stable emphasize on F/u 1 week with PCP as well as consultants Phone number and cards provided by the consultants and RN Question answered Total time over 30 ms Last EKG reviewed Last CXR reviewed EpicAND consultants notes reviewed Labs reviewed Hemoglobin A1C (POCT) Date Value Ref Range Status 01/03/2022 13.4 (A) 4.2 - 5.6 % Final Comment: Location:[facility], [address] [place] [address], [facility] Point of care (POC) Hemoglobin A1c (HGBA1C) testing is intended to assess glucose control and provide a management tool for patients known to have diabetes and their healthcare providers. Target HGBA1C levels may depend on specific clinical circumstances. POC HGBA1C is not intended for use as a diagnostic or screening test; laboratory-based testing should be used for diagnostic purposes. The following information is supplemental and may not be applicable to specific diabetes management situations: The POC device reliability engineer provides a normal range of 4.2% to 6.5% for the HGBA1C POC test. However, the [place] Diabetes [employer] guidelines indicate that patients with HGBA1C in the range of 5.7% to 6.4% are at increased risk for development of diabetes and that intervention by lifestyle modification may be beneficial. A HGBA1C level greater than or equal to 6.5% is considered diagnostic of diabetes, pending confirmatory testing. Use of HGBA1C testing to evaluate glucose control may not be appropriate for patients with hemoglobin variants or other conditions (e.g. anemia) that alter red blood cell lifespan. 01/20/22 0736 01/20/22 1126 01/20/22 1647 01/20/22 1949 BP: 147/70 131/74 159/88 173/82 Pulse: 84 85 90 96 Resp: 18 Temp: 36.5 ?C (97.7 ?F) TempSrc: Oral SpO2: 94% 96% 95% Weight: Height: GENERAL:no distress, cooperative LUNGS: Lungs clear to auscultation. No wheezing,ronchi or rales./CARDIAC: S1 , S2; ABDOMEN: Abdomen soft, non-tender NEURO: same /no new rash ENT unremarkable Plan D/W consultants/PT/available family Medication List ASK your doctor about these medications alcohol swabs Commonly known as: ALCOHOL PREP PADS Apply 1 application to affected area as directed. BLOOD GLUCOSE TEST test strip Generic drug: blood sugar diagnostic 3x/day Blood-Glucose Meter monitoring kit For monitoring sugars 3x/day (patient on insulin) insulin glargine 100 unit/mL (3 mL) Commonly known as: LANTUS SOLOSTAR, BASAGLAR KWIKPEN Inject 26 Units subcutaneously daily at bedtime. Insulin [place] (Disposable) 29 gauge x 1/2" Commonly known as: COMFORT EZ PEN NEEDLES 1 Each once daily. Lancets lancets Use as instructed 3x/day metFORMIN ER 500 mg 24 hr tablet Commonly known as: GLUCOPHAGE XR Two tablets before breakfast and before supper pioglitazone 45 mg tablet Commonly known as: ACTOS Take 1 tablet by mouth once daily. TRULICITY 1.5 mg/0.5 mL pen injector Generic drug: dulaglutide Inject 1.5 mg subcutaneously one time a week. Kylah Orantes MD [facility] Lipid 1996 panelon 2 Cholesterol [Mass/Vol] 260 mg/dL High <200 [facility] Comment on above: Order Comment: Speci men Type: BLOOD SPECIMENOrdering Facility: [facility] Address: [address] [place], [place] [id number] Result Comment: <200 mg/dL, Desirable 200-239 mg/dL, Borderline high >239 mg/dL, High Performed By: #### 2 4331-1 ####[facility]ATORYCLIA [id number] [address] [place] Cholesterol in HDL [Mass/Vol] 40 mg/dL Normal >39 [facility] Comment on above: Order Comment: Speci men Type: BLOOD SPECIMENOrdering Facility: [facility] Address: [address] [place] [phone] Result Comment: 40-5 9 mg/dL, Acceptable >59 mg/dL, High: Negative risk factor for coronary heart disease <40 mg/dL, Low: Positive risk factor for coronary heart disease Performed By: #### 2 4331-1 ####[facility]ORATORYCLIA [id number] [address] [place], [place] [id number] [place] Cholesterol in LDL [Mass/Vol] 162 mg/dL High <100 [facility] Comment on above: Order Comment: Speci men Type: BLOOD SPECIMENOrdering Facility: [facility] Address: [address] [place] [address] Result Comment: <100 mg/dL, Optimal 100-129 mg/dL, Near optimal/above optimal 130-159 mg/dL, Borderline high 160-189 mg/dL, High >189 mg/dL, Very high Secondary prevention optimal LDL Cholesterol levels are recommended to be < 70 mg/dL Performed By: #### 2 4331-1 ####[facility]ORATORYCLIA [id number] [place] [address] [place] Cholesterol in LDL/Cholesterol in HDL [Mass ratio] 4.05 {ratio} High <2.54 [facility] Comment on above: Order Comment: Speci men Type: BLOOD SPECIMENOrdering Facility: [facility] Address: [address] [place] [address] Result Comment: Refe rence: 1. National Cholesterol Education Program ATP III Guideline At-A-Glance Quick Desk Reference: National Heart, Lung, and Blood [place]. National Institutes of Health. 2001: NIH Publication No. 01-3305. 2. An International Atherosclerosis Society position paper: global recommendations for the management of dyslipidemia: executive summary, Atherosclerosis. 2014: 232(2):410-413. Performed By: #### 2 4331-1 ####[facility]ATORYCLIA [id number] [address] [place], [place] [address] [place] Cholesterol in VLDL [Mass/Vol] 58 mg/dL High <30 [facility] Comment on above: Order Comment: Speci men Type: BLOOD SPECIMENOrdering Facility: [facility] Address: [address] [place] [address] Performed By: #### 2 4331-1 ####[facility]ORATORYCLIA [id number] [place] [id number] [facility] [place] Cholesterol non HDL [Mass/Vol] 220 mg/dL High <130 [facility] Comment on above: Order Comment: Speci men Type: BLOOD SPECIMENOrdering Facility: [facility] Address: [address] [place] [address] Result Comment: <130 mg/dL, Optimal 130-159 mg/dL, Near optimal/above optimal 160-189 mg/dL, Borderline high 190-219 mg/dL, High >219 mg/dL, Very high Secondary prevention optimal non HDL Cholesterol levels are recommended to be <100 mg/dL Performed By: #### 2 4331-1 ####[facility]ATORYCLIA [id number] [address] Cholesterol.total/Chol esterol in HDL [Mass ratio] 6.50 {ratio} High <5.10 [facility] Comment on above: Order Comment: Speci men Type: BLOOD SPECIMENOrdering Facility: [facility] Address: [address] [place] [address] Performed By: #### 2 4331-1 ####[facility]ATORYCLIA [id number] [address] [place] FASTING TIME Normal [facility] Comment on above: Order Comment: Speci men Type: BLOOD SPECIMENOrdering Facility: [facility] Address: [address] [place] [address] Result Comment: Unkn own Performed By: #### 2 4331-1 ####[facility]ORATORYCLIA [id number] [place] [id number] [place] Triglyceride [Mass/Vol] 291 mg/dL High <150 [facility] Comment on above: Order Comment: Speci men Type: BLOOD SPECIMENOrdering Facility: [facility] Address: [address] [place], [place] [address] Result Comment: <150 mg/dL, Normal 150-199 mg/dL, Borderline high 200-499 mg/dL, High >499 mg/dL, Very high Performed By: #### 2 4331-1 ####[facility]ORATORYCLIA [id number] [address] [place] [address] NURSING PROGon 01-20-2022 NURSING PROG HNO ID: [id number] Author: Keyla Trammell RN Service: Nursing Author Type: Registered Nurse Type: Nursing Progress Note Filed: 01/21/2022 7:01 AM Note Text: Nursing Progress note: ([id number]) Start of shift there was an order to transfer Patient to . Pt is AANDOx3. Start of shift Pt seen sitting at the edge of his bed, appears disheveled and withdrawn. Pt has poor eye contact and looks down at the ground while talking with this food writer.Pt reports feeling angry and frustrated that he is unable to care for himself like he used too. Reports feeling overwhelmed having to keep up with his medications and doctors appointments. Pt c/o chronic generalized pain, but declined pain medication states "smoking blunts" is the only thing that helps. Pt cooperative with VS and accu check. Blood glucose 378. Per sliding scale, 5 units of insulin given. Pt still unwilling to uses any assistive ambulatory device other than his cane. Pt has unsteady gait even with his cane and refuses to call for staff piror to getting up. Pt remains a high fall risk. Report given to 6D RN. Pt cooperative with Transfer to . Patient and his belongings were transferred to in stable condition. [facility] NURSING PROG HNO ID: [id number] Author: Chele Mcginnis RN Service: Nursing Author Type: Registered Nurse Type: Nursing Progress Note Filed: 01/20/2022 6:26 PM Note Text: Other: Patient arrived on the unit at 1643 todayin a wheelchair accompanied by two nurses. Patient was offered a walker but he refused. I told patient this unit doesn't allow canes as they can be used as weapons but the patient stated he was not giving up his cane. Patient was easy to become argumentative and stated he is irritated easily.Patient came from and was there for not being medication compliant and is also a diabetic who wasn't taking their blood sugar medicine. This nurse had to grab the patient a couple of times when he was walking to the consult office to stop him from losing his balance. Spoke with my nurse hydro generation manager to possibly get the patient transferred to . After speaking with clinical nurse hydro generation manager she recommended transfer to geriatric psych unit. Nature of the crisis: depression leading to medication noncompliance Presenting Problem: José Manuel Ashton is a 61 year old male referred by [facility] for depression. Per Psych consult 01/19/2022 by Rafal Fuentes PA-C "Mood is "not good." Feels "angry" most of the days. Feels "kind of" anxious today. Vague about his depression. "I probably need help. I don't want to go backwards. I'm going backwards. I don't know. I don't know what is going on." Endorses low motivation, low energy. Endorses sleep difficulties. Admits difficulties managing his medicine. Says his concentration is probably not very good. Endorses feeling overwhelmed: "I don't know what is going on.... too many things with my health. I don't know if I will get better." When asked if he has wishes, states "I don't know." He denies thoughts to hurt himself or end his life. Denies hallucinations. " Pt was admitted medically on 01/17 for elevated glucose levels. Pt had stopped taking his medications. Given concerns for his depression to be affecting his quality of life and his ability to care for himself, voluntary admission to inpatient psychiatry recommended for further evaluation and care. Patient is agreeable. Per ED quill worker Roxanne MOORE on 01/17 This food writer assessed patient via face to face who presents alert and oriented x 4, appears overweight and disheveled, speech is within normal limits appropriate to tone, prosody, melody, phonetic, and syntax, thought process is linear and organized, difficulty concentrating at times, and a poor historian,, mood is depressed with flat affect, with impaired judgement and insight into illness. Patient reports that his Machine Operator Farmworker sent him to the emergency room for a psychiatric evaluation due to not taking his medications. Patient states that he doesn't know why he doesn't take them ?I just don't do it, I don't know why?. Patient denies that he does this in an attempt to sooner although he states ?I've just given up, nothing seems to be getting better, I have too many things going on?. This food writer inquires if patient believes he will get better without taking his medications consistently, in which, patient states ?I don't know?. Patient denies any suicidal ideation or previous suicide attempts. Patient endorses depressive symptoms of feeling hopeless, worthless, dysphoria, anhedonia, isolation, lack of motivation, poor sleep patterns, lack of appetite ?I starve myself because my sugar is so dolores high?, and lack of energy. Patient denies any homicidal ideation, auditory or visual hallucinations, or self-injurious behaviors. Patient endorses BRANDAN symptoms of nightmares, restlessness, anxiety, and constant worry. Patient denies any hx of abuse and states he had 16 siblings, he was number 17. Patient reports that he is supposed to see a psychiatrist and a therapist and take psychotropic medications, but he is non-compliant. Patient states he did not feel they helped although he admitted that he was not taking the medications consistently and missed dosages. Patient reports to smoking THC daily and denies any alcohol use in 40 years although his BAL was 29. Patient does use a wheelchair and states that he has been forced to a [facility] in the past for not caring for himself. This food writer discussed with patient potential for a [facility] nurse to come into home to assist with his medication management to ensure he is caring for self properly and taking medications. Patient has been calm and cooperative in the ED with no restraints or medications administered. " [facility] 01-19-2022 ALLIED HEALTH O ID: [id number] Author: RT Vishal(Neil) Service: ? Author Type: Technologist Type: Allied Health Filed: 01/19/2022 3:45 AM Note Text: Radiology Service Progress Note PATIENT NAME: José Manuel Ashton DATE OF SERVICE: January 19, 2022 TIME: 3:45 AM PATIENT IDENTITY VERIFICATION COMPLETED USING TWO (2) IDENTIFIERS: Name and Date of confirmed by patient verbally. FALL SCREENING: Has the patient had 2 falls in the last year or 1 fall with injury or currently using an Ambulatory Assistive Device (Walker, Cane, Wheelchair, Crutches, etc.)? Emergency Room Patient: Screened in ED PATIENT GENDER DATA: Male PATIENT RELEVANT IMPLANT DATA REVIEWED: Yes RADIOLOGY DEPARTMENT: CT; Exam(s) Completed: Brain and Spine PERIPHERAL IV DATA: Not applicable SIGNED BY: RT Vishla(R) January 19, 2022 3:45 AM [facility] Bacteria Ur Culton 2 Bacteria identified Cx Nom (U) CULTURE, URINE: No growth (<1,000 CFU/ml) [facility] Comment on above: Performed By: #### 6 30-4 ####[facility] LABCLIA [id number] [facility] [place] [address] [place] Basic metabolic 2000 panelon 01-19-2022 Anion gap [Moles/Vol] 10 mmol/L Normal 9-18 [facility] Comment on above: Order Comment: Speci men Type: BLOOD SPECIMENOrdering Facility: [facility] Address: [address] [place] [address] Performed By: #### 1 9123-9, 21247-7 ####[facility]ATORYCLIA [id number] [place] [address] [place] Calcium [Mass/Vol] 9.1 mg/dL Normal 8.5-10.2 [facility] Comment on above: Order Comment: Speci men Type: BLOOD SPECIMENOrdering Facility: [facility] Address: [address] [place] [address] Performed By: #### 1 9123-9, 45952-6 ####[facility]ORATORYCLIA [id number] [place] [address] [place] Chloride [Moles/Vol] 102 mmol/L Normal 97-105 [facility] Comment on above: Order Comment: Speci men Type: BLOOD SPECIMENOrdering Facility: [facility] Address: [address] [place] [address] Performed By: #### 1 9123-9, 00218-3 ####[facility]ORATORYCLIA [id number] [address] [address] [place] CO2 [Moles/Vol] 27 mmol/L Normal 22-30 [facility] Comment on above: Order Comment: Speci men Type: BLOOD SPECIMENOrdering Facility: [facility] Address: [address] [place] [address] Performed By: #### 1 9123-9, 91166-7 ####[facility]ORATORYCLIA [id number] [place] [id number] [place] Creatinine [Mass/Vol] 1.34 mg/dL High 0.73-1.22 [facility] Comment on above: Order Comment: Speci men Type: BLOOD SPECIMENOrdering Facility: [facility] Address: [address] [place] [address] Performed By: #### 1 9123-9, 52843-7 ####[facility]ORATORYCLIA [id number] [address] STATES OF [facility] ESTIMATED GLOMERULAR FILTRATION RATE 60 mL/min/1.73m??? Normal >=60 [facility] Comment on above: Order Comment: Speci clement Type: BLOOD SPECIMENOrdering Facility: [facility] Address: [address] [place] [address] Result Comment: Breanne mated Glomerular Filtration Rate (eGFR) is calculated using the 2020 CKD-EPI creatinine equation. This equation utilizes serum creatinine, sex, and age as parameters. The creatinine assay has traceable calibration to isotope dilution-mass spectrometry. Refer to KDIGO guidelines for clinical interpretation. In patients with unstable renal function, e.g. those with acute kidney injury, the eGFR may not accurately reflect actual GFR. Performed By: #### 1 9123-9, 54872-5 ####[facility]ATORYCLIA [id number] [place] [id number] [place] Glucose [Mass/Vol] 332 mg/dL High 74-99 [facility] Comment on above: Order Comment: Speci men Type: BLOOD SPECIMENOrdering Facility: [facility] Address: [address] [place] [address] Result Comment: The [place] Diabetes Association (ADA) provides guidance for cutoff values for fasting glucose and random glucose. The ADA defines fasting as no caloric intake for at least 8 hours. Fasting plasma glucose results between 100 to 125 mg/dL indicate increased risk for diabetes (prediabetes). Fasting plasma glucose results greater than or equal to 126 mg/dL meet the criteria for diagnosis of diabetes. In the absence of unequivocal hyperglycemia, results should be confirmed by repeat testing. In a patient with classic symptoms of hyperglycemia or hyperglycemic crisis, random plasma glucose results greater than or equal to 200 mg/dL meet the criteria for diagnosis of diabetes. Reference: Standards of Medical Care in Diabetes 2016, [place] Diabetes Association. Diabetes Care. 2016.39(Suppl 1). Performed By: #### 1 9123-9, 60272-7 ####[facility]ORATORYCLIA [id number] [place] [address] [place] Potassium [Moles/Vol] 5.0 mmol/L Normal 3.7-5.1 [facility] Comment on above: Order Comment: Speci men Type: BLOOD SPECIMENOrdering Facility: [facility] Address: [address] [place] [phone] Performed By: #### 1 9123-9, 94382-5 ####[facility]ORATORYCLIA [id number] [place] [address] [place] Sodium [Moles/Vol] 139 mmol/L Normal 136-144 [facility] Comment on above: Order Comment: Speci men Type: BLOOD SPECIMENOrdering Facility: [facility] Address: [address] [place] [phone] Performed By: #### 1 9123-9, 66113-6 ####[facility]ORATORYCLIA [id number] [place] [address] [place] Urea nitrogen [Mass/Vol] 21 mg/dL Normal 9-24 [facility] Comment on above: Order Comment: Speci men Type: BLOOD SPECIMENOrdering Facility: [facility] Address: [address] [place] [phone] Performed By: #### 1 9123-9, 89498-6 ####[facility]ORATORYCLIA [id number] [place] [id number] [facility] CBC panel Auto (Bld)on 01-19 Erythrocyte distribution width (RBC) [Ratio] 12.9 % Normal 11.5-15.0 [facility] Comment on above: Order Comment: Speci men Type: BLOOD SPECIMENOrdering Facility: [facility] Address: [address] [place] [address] Performed By: #### 5 8410-2 ####[facility]ORATORYCLIA [id number] [address] STATES [facility] Hematocrit (Bld) [Volume fraction] 42.6 % Normal 39.0-51.0 [facility] Comment on above: Order Comment: Speci men Type: BLOOD SPECIMENOrdering Facility: [facility] Address: [address] [place] [address] Performed By: #### 5 8410-2 ####[facility]ORATORYCLIA [id number] [address] [place] Hemoglobin (Bld) [Mass/Vol] 14.1 g/dL Normal 13.0-17.0 [facility] Comment on above: Order Comment: Speci men Type: BLOOD SPECIMENOrdering Facility: [facility] Address: [address] [place] [address] Performed By: #### 5 8410-2 ####[facility]ATORYCLIA [id number] [place] [id number] [place] MCH (RBC) [Entitic mass] 28.3 pg Normal 26.0-34.0 [facility] Comment on above: Order Comment: Speci men Type: BLOOD SPECIMENOrdering Facility: [facility] Address: [address] [place] [address] Performed By: #### 5 8410-2 ####[facility]ORATORYCLIA [id number] [address] [place], [place] [id number] [place] MCHC (RBC) [Mass/Vol] 33.1 g/dL Normal 30.5-36.0 [facility] Comment on above: Order Comment: Speci men Type: BLOOD SPECIMENOrdering Facility: [facility] Address: [address] [place] [address] Performed By: #### 5 8410-2 ####[facility] LABORATORYCLIA [id number] [address] [place] [address] [place] MCV (RBC) [Entitic vol] 85.4 fL Normal 80.0-100.0 [facility] Comment on above: Order Comment: Speci men Type: BLOOD SPECIMENOrdering Facility: [facility] Address: [address] [place] [address] Performed By: #### 5 8410-2 ####[facility]ATORYCLIA [id number] [address] [place] Nucleated RBC (Bld) [#/Vol] 10*3/uL Normal <0.01 [facility] Comment on above: Order Comment: Speci men Type: BLOOD SPECIMENOrdering Facility: [facility] Address: [address] [place] [address] Performed By: #### 5 8410-2 ####[facility]ORATORYCLIA [id number] [place] [id number] [place] [facility] Platelet mean volume (Bld) [Entitic vol] 10.0 fL Normal 9.0-12.7 [facility] Comment on above: Order Comment: Speci men Type: BLOOD SPECIMENOrdering Facility: [facility] Address: [address] [place] [address] Performed By: #### 5 8410-2 ####[facility]ORATORYCLIA [id number] [address] [place] Platelets (Bld) [#/Vol] 244 10*3/uL Normal 150-400 [facility] Comment on above: Order Comment: Speci men Type: BLOOD SPECIMENOrdering Facility: [facility] Address: [address] [place], [place] [address] [address] Performed By: #### 5 8410-2 ####[facility]ORATORYCLIA [id number] [place] [id number] [facility] RBC (Bld) [#/Vol] 4.99 10*6/uL Normal 4.20-6.00 [facility] Comment on above: Order Comment: Speci men Type: BLOOD SPECIMENOrdering Facility: [facility] Address: [address] [place] [phone] Performed By: #### 5 8410-2 ####[facility]ORATORYCLIA [id number] [place] [id number] [facility] WBC (Bld) [#/Vol] 6.42 10*3/uL Normal 3.70-11.00 [facility] Comment on above: Order Comment: Speci men Type: BLOOD SPECIMENOrdering Facility: [facility] Address: [address] [place] [address] Performed By: #### 5 8410-2 ####[facility]ATORYCLIA [id number] [place] [id number] [facility] CONSULT PROGon 01-19-2022 CONSULT PROG HNO ID: [id number] Author: Rafal Carroll PA-C Service: Psychiatry Author Type: Physician Generator Assembler Type: Consult Progress Note Filed: 01/19/2022 2:51 PM Note Text: CL FOLLOW UP - PSYCHIATRY CONSULTATION PROGRESS NOTE SERVICE DATE: January 19, 2022 SERVICE TIME: 2:00 PM PRESENT HISTORY: Mood is "not good." Feels "angry" most of the days. Feels "kind of" anxious today. Vague about his depression. "I probably need help. I don't want to go backwards. I'm going backwards. I don't know. I don't know what is going on." Endorses low motivation, low energy. Endorses sleep difficulties. Admits difficulties managing his medicine. Says his concentration is probably not very good. Endorses feeling overwhelmed: "I don't know what is going on.... too many things with my health. I don't know if I will get better." When asked if he has wishes, states "I don't know." He denies thoughts to hurt himself or end his life. Denies hallucinations. PATIENT DATA: Generalized Anxiety Disorder Scale (BRANDAN-7) BRANDAN - 7 SCORES 03/25/2021 04/05/2021 05/31/2021 BRANDAN-7 Score 19 16 16 (0-4) minimal anxiety, (5-9) mild anxiety, (10-14) moderate anxiety, (15-21) severe anxiety Patient Health Questionnaire (PHQ-9) PHQ-9 03/25/2021 04/05/2021 05/31/2021 Score 23 23 24 (0-4) minimal depression, (5-9) mild depression, (10-14) moderate depression, (15-19) moderately severe depression, (20-27) severe depression PROMIS Global Health PROMIS Global Health - (T-Scores - the mean of general population = 50. Five points is a clinically meaningful difference.) 03/11/2021 Physical T-Score 29.6 Mental T-Score 25.1 MEDICATIONS: Current Facility-Administered Medications Medication Dose Route Frequency Provider Last Rate Last Admin insulin glargine 33 Units pen (long acting) (LANTUS SOLOSTAR, BASAGLAR KWIKPEN) 33 Units SUBCUTANEOUS AT BEDTIME Teresa Digeo APRN.LEX atropine 0.5 mg injection 0.5 mg INTRAVENOUS PRN Radha Mack APRN.PRODUCTION INTERN NaCl 0.9% iv flush bag 20 mL INTRAVENOUS PRN Radha Mack APRN.PRODUCTION INTERN sodium chloride 0.9 % (flush) 3-5 mL (BD POSIFLUSH) 3-5 mL INTRAVENOUS q 12 H Radha Mack APRN.PRODUCTION INTERN 5 mL at 01/18/222014 aluminum-magnesium hydroxide-simethicone 200-200-20 mg/5 mL 30 mL (MAALOX,MYLANTA,MAG-AL PLUS) 30 mL ORAL DAILY PRN Radha Mack APRN.PRODUCTION INTERN acetaminophen 650 mg tab(s) (TYLENOL) 650 mg ORAL q 6 H PRN Radha Mack APRN.PRODUCTION INTERN 650 mg at 01/18/22 0818 insulin lispro injection (rapid acting) (ADMELOG) SUBCUTANEOUS AT BEDTIME Radha Mack APRN.PRODUCTION INTERN 2 Units at 01/18/22 0123 hydrALAZINE 10 mg injection (APRESOLINE) 10 mg INTRAVENOUS q 6 H PRN Radha Mack APRN.PRODUCTION INTERN lisinopril 20 mg tab(s) (ZESTRIL, PRINIVIL) 20 mg ORAL DAILY Radha Mack APRN.PRODUCTION INTERN 20 mg at 01/19/22 0848 tamsulosin 0.4 mg cap(s) (FLOMAX) 0.4 mg ORAL AT BEDTIME Radha Mack APRN.PRODUCTION INTERN 0.4 mg at 01/18/222014 insulin lispro injection (rapid acting) (ADMELOG) SUBCUTANEOUS w MEALS Miranda Nash APRN.PRODUCTION INTERN 9 Units at 01/19/22 0825 pioglitazone 45 mg tab(s) (ACTOS) 45 mg ORAL DAILY Miranda Nash APRN.PRODUCTION INTERN 45 mg at 01/19/22 0848 docusate sodium 100 mg cap(s) (COLACE) 100 mg ORAL BID Miranda Nash APRN.PRODUCTION INTERN 100 mg at 01/18/222014 polyethylene glycol 3350 17 g packet (MIRALAX, GLYCOLAX) 17 g ORAL DAILY Miranda Nash APRN.PRODUCTION INTERN 17 g at 01/18/22 1222 venlafaxine ER 37.5 mg cap(s) (EFFEXOR XR) 37.5 mg ORAL DAILY WITH BREAKFAST Rafal Carroll PA-C 37.5 mg at 01/19/22 0849 dextrose 40 % 15 g 15 g ORAL PRN Ravinder Rascon MD Or glucagon 1 mg injection 1 mg INTRAMUSCULAR PRN Ravinder Rascon MD Or dextrose 10% iv bolus 12.5 g INTRAVENOUS PRN Ravinder Rascon MD LABS : Lab Results Component Value Date/Time WBC 6.42 01/19/2022 05:45 AM RBC 4.99 01/19/2022 05:45 AM HCT 42.6 01/19/2022 05:45 AM MCV 85.4 01/19/2022 05:45 AM MCH 28.3 01/19/2022 05:45 AM MCHC 33.1 01/19/2022 05:45 AM RDWCV 12.9 01/19/2022 05:45 AM PLT 244 01/19/2022 05:45 AM NEUTP 73.2 09/06/2021 10:47 PM LYMPHP 18.5 09/06/2021 10:47 PM MONOP 7.0 09/06/2021 10:47 PM BASOP 0.8 09/06/2021 10:47 PM ABSNEUT 4.60 09/06/2021 10:47 PM ABSMONO 0.44 09/06/2021 10:47 PM ABSEOSIN 0.03 09/06/2021 10:47 PM ABSBASO 0.05 09/06/2021 10:47 PM GLUC 332 (H) 01/19/2022 05:45 AM GLUC 319 (A) 09/22/2020 12:00 AM NA 139 01/19/2022 05:45 AM K 5.0 01/19/2022 05:45 AM CHLOR 102 01/19/2022 05:45 AM BUN 21 01/19/2022 05:45 AM CREAT 1.34 (H) 01/19/2022 05:45 AM MG 1.9 01/19/2022 05:45 AM TSH 1.870 01/17/2022 08:47 PM CO2 27 01/19/2022 05:45 AM TPROT 7.0 01/17/2022 08:47 PM ALB 4.0 01/17/2022 08:47 PM CA 9.1 01/19/2022 05:45 AM AST 14 01/17/2022 08:47 PM ALT 15 01/17/2022 08:47 PM ALKPHOS 127 (H) 01/17/2022 08:47 PM TBILI 0.3 01/17/2022 08:47 PM Vital Signs: 01/19/22 0328 01/19/22 0744 01/19/22 0947 01/19/22 1219 BP: 175/99 168/84 147/67 Pulse: 89 91 89 Resp: 20 18 18 Temp: 36.7 ?C (98.1 ?F) 3 (more content not included)... Normal [facility] CT BRAIN WO IVCONon 01-20-20 CT BRAIN WO IVCON * * *Final Report* * * DATE OF EXAM: Jan 19 2022 3:45AM FAVIO 0504 - CT BRAIN WO IVCON / PROCEDURE REASON: Head trauma, moderate-severe * * * * Physician Interpretation * * * * EXAMINATION: CT BRAIN WO IVCON, CT CERVICAL SPINE WO IVCON CLINICAL HISTORY: Head trauma, moderate-severe (accession [id number]), Neck trauma, midline tenderness (Age 16-64y) (accession [id number]) TECHNIQUE: Serial axial images without IV contrast were obtained from the vertex to the foramen magnum and through the cervical spine. MQ: CTBWO_3 CT Dose-Length Product (DLP): 1248 mGy*cm CT Dose Reduction Employed: Automated exposure control(AEC) and iterative recon COMPARISON: Head CT 02/19/2021. RESULT: Head CT: Post-operative change: None. Acute change: No evidence of an acute infarct or other acute parenchymal process. Hemorrhage: No evidence of acute intracranial hemorrhage. Mass Lesion / Mass Effect: There is no evidence of an intracranial mass or extraaxial fluid collection. No significant mass effect. Chronic change: None apparent. Parenchyma: There is no significant volume loss. The brain parenchyma is otherwise within normal limits for age. Ventricles: The ventricles are within normal limits of size and configuration for age. Scalp and Bones: No acute soft tissue abnormality. No fracture or lytic or blastic lesion. Skull base: Skull base is intact. Mastoid air cells are somewhat congenitally underpneumatized but otherwise clear. Bilateral middle ear cavities are clear. Paranasal sinuses: Small nonspecific frothy secretions in the right sphenoid sinus. Remaining image sinuses are clear. Cervical spine: Counting reference: Craniocervical junction. Anatomic Variants: None. Can Filling Room Sweeper (topogram) images: Cardiac leads overlie the upper chest. Alignment: Alignment is anatomic. Craniocervical junction: Craniocervical junction is normal. Bones: No fracture or lytic or blastic lesion. Cervical soft tissues: No gross acute abnormalities. Mild scattered calcified atherosclerosis. Degenerative changes: Mild multilevel disc degeneration. No significant spinal canal stenosis. Multilevel facet arthrosis with fused facets on the left at C2-C3. Mild multilevel foraminal stenosis due to multilevel uncovertebral and facet arthrosis. IMPRESSION: Head CT: No acute abnormality. No significant changes from the prior head CT of 02/19/2021. Cervical spine CT: No cervical spine fracture or subluxation. Field Administrative Assistant: PSCJosey Transcribe Date/Time: Jan 19 2022 3:52A Dictated by : ASHISH MARY MD This examination was interpreted and the report reviewed and electronically signed by: ASHISH MARY MD on Jan 19 2022 4:00AM EST [id number] [facility] CT CERVICAL SPINE WO IVCONon 01-19-2022 CT CERVICAL SPINE WO IVCON * * *Final Report* * * DATE OF EXAM: Jan 19 2022 3:45AM FAVIO 0505 - CT CERVICAL SPINE WO IVCON / PROCEDURE REASON: Neck trauma, midline tenderness (Age 16-64y) * * * * Physician Interpretation * * * * EXAMINATION: CT BRAIN WO IVCON, CT CERVICAL SPINE WO IVCON CLINICAL HISTORY: Head trauma, moderate-severe (accession [id number]), Neck trauma, midline tenderness (Age 16-64y) (accession [id number]) TECHNIQUE: Serial axial images without IV contrast were obtained from the vertex to the foramen magnum and through the cervical spine. MQ: CTBWO_3 CT Dose-Length Product (DLP): 1248 mGy*cm CT Dose Reduction Employed: Automated exposure control(AEC) and iterative recon COMPARISON: Head CT 02/19/2021. RESULT: Head CT: Post-operative change: None. Acute change: No evidence of an acute infarct or other acute parenchymal process. Hemorrhage: No evidence of acute intracranial hemorrhage. Mass Lesion / Mass Effect: There is no evidence of an intracranial mass or extraaxial fluid collection. No significant mass effect. Chronic change: None apparent. Parenchyma: There is no significant volume loss. The brain parenchyma is otherwise within normal limits for age. Ventricles: The ventricles are within normal limits of size and configuration for age. Scalp and Bones: No acute soft tissue abnormality. No fracture or lytic or blastic lesion. Skull base: Skull base is intact. Mastoid air cells are somewhat congenitally underpneumatized but otherwise clear. Bilateral middle ear cavities are clear. Paranasal sinuses: Small nonspecific frothy secretions in the right sphenoid sinus. Remaining image sinuses are clear. Cervical spine: Counting reference: Craniocervical junction. Anatomic Variants: None. Can Filling Room Sweeper (topogram) images: Cardiac leads overlie the upper chest. Alignment: Alignment is anatomic. Craniocervical junction: Craniocervical junction is normal. Bones: No fracture or lytic or blastic lesion. Cervical soft tissues: No gross acute abnormalities. Mild scattered calcified atherosclerosis. Degenerative changes: Mild multilevel disc degeneration. No significant spinal canal stenosis. Multilevel facet arthrosis with fused facets on the left at C2-C3. Mild multilevel foraminal stenosis due to multilevel uncovertebral and facet arthrosis. IMPRESSION: Head CT: No acute abnormality. No significant changes from the prior head CT of 02/19/2021. Cervical spine CT: No cervical spine fracture or subluxation. Field Administrative Assistant: PSCB Transcribe Date/Time: Jan 19 2022 3:52A Dictated by : ASHISH MARY MD This examination was interpreted and the report reviewed and electronically signed by: ASHISH MARY MD on Jan 19 2022 4:00AM EST [id number] Normal [facility] ETHYL GLUCURONIDE UR SCRon 1 ETHYL GLUCURONIDE UR SCR Negative Normal Cutoff [address] [place] [address] Comment on above: Order Comment: Speci men Type: URINE SPECIMENOrdering Facility: [facility] Address: [address] [phone] Result Comment: INTE RPRETIVE INFORMATION: Ethyl Glucuronide Screen with Reflex to Confirmation, Urine Ethyl glucuronide is a direct metabolite of ethanol and can be detected up to 80 hours in urine after ethanol ingestion. The cutoff for positive by immunoassay is set at 500 ng/mL. A positive result will be confirmed by liquid chromatography tandem mass spectrometry (LC-MS/MS). Performed By: [address] [place] [address] Briquette Molder: Derian Moreno MD, PhD Performed By: #### U EGLUC ####[facility] [id number] [place] [address] Free PSA [Mass/Vol]on 2021 Free PSA/Total PSA [Mass fraction] 49 % Normal [facility] Comment on above: Order Comment: Speci men Type: BLOOD SPECIMEN [facility]ing Facility: [facility] Address: [address] [phone] Result Comment: Tota l and free PSA test methodology used is the Electrochemiluminescence Immunoassay by [employer]. Total or free PSA values by differing methodologies cannot be interchanged. The below table lists the probability of finding prostate cancer upon needle biopsy, for men 50 years or older and total PSA concentrations from 4.0-10.0 ng/mL. Results should be interpreted within the broader clinical context. Free PSA(%) 50-59 years 60-69 years >69 years <11 49.2% 57.5% 64.5% 11-18 26.9% 33.9% 40.8% 19-25 18.3% 23.9% 29.7% >25 9.1% 12.2% 15.8% Performed By: #### 5 8410-2 #### [facility] CLIA [id number] [address] [place] [address] [place] Prostate specific Ag [Mass/Vol] 0.74 ng/mL Normal <2.60 [facility] Comment on above: Order Comment: Speci men Type: BLOOD SPECIMEN [facility]ing Facility: [facility] Address: [address] [place] [address] Result Comment: Tota l PSA test methodology used is the Electrochemiluminescence Immunoassay by [employer].. Total PSA values by differing methodologies cannot be interchanged. Performed By: #### 5 8410-2 #### [facility] CLIA [id number] [address] [place] [address] [place] GGT SerPl-cCncon 01-19-2022 Gamma glutamyl transferase [Catalytic activity/Vol] 24 U/L Normal 10-70 [facility] Comment on above: Order Comment: Speci men Type: BLOOD SPECIMEN [facility]ing [facility]: [facility] Address: [address] [place] [address] Performed By: #### 5 8410-2 #### [facility] CLIA [id number] [address] [place] [address] [place] Gamma glutamyl transferase [Catalytic activity/Vol] 9 U/L Low 10-70 [facility] Comment on above: Order Comment: Speci men Type: BLOOD SPECIMENOrdering Facility: [facility] Address: [address] [place] [address] Performed By: #### 2 324-2 ####[facility] [id number] [address] [id number] [address] [place] MEDICAL EMERon 01-19-2022 MEDICAL KIYA HNO ID: [id number] Author: Liam Saldana APRN.LEX Service: Critical Care Author Type: Nurse Practitioner Type: Chg in Clinical Condition Filed: 01/19/2022 4:19 AM Note Text: POST FALL ASSESSMENT PATIENT NAME: José Manuel Ashton ASSESSMENT DATE: 01/19/2022 ASSESSMENT TIME: 3:26 AM Subjective Brief description of event: Event was unwitnessed by staff. Patient reportedly was sitting in his recliner next to the bed and described to me that he attempted to lay back more in the recliner at which time he reported that the whole recliner chair fell backwards and he struck the back of his head against the cabinet on the wall behind him. Staff report that they did not hear any banging or hitting sound from the room but they did hear the patient yell "ow" and "help". On assessment at bedside patient is distressed unable to sit still obviously in some pain. He is sitting upright on his bed with his eyes closed holding his head down rubbing the back of his head and neck. He is inconsistent in reporting his symptoms but denied any dizziness/lightheadedness, chest pain, shortness of breath, or any syncopal-like episode. He does report pain to the dorsal part of his head. On assessment I do not see any abrasions, lacerations, swelling, or bruising. When he cooperates with assessment he is noted to have full range of motion of head and neck however reports pain when turning neck to the right which he says is new. He initially responded yes when asked if he has any numbness/tingling in his extremities or head but then reported that this is not new and he experiences this often. The patient verbalized to me that he has fallen before and hit his head and that he felt he would be fine and just wanted to be left alone. I explained to him my concerns given that his fall was unwitnessed and he is complaining of head and cervical pain, and that I would like to obtain a CT scan of his head and C-spine to rule out any acute abnormality. I informed the patient that he should allow us to place him in a neck immobilizer and lay him in bed until he has the CT however he refused these interventions noting that he "hates this bed and is not going to lay on it". I informed him that he could refuse but encouraged him to still allow us to perform a CT scan to which she agreed. He is otherwise hemodynamically stable at present, not on anticoagulation. Fall witnessed: Yes How did fall occur: Reported sitting in recliner and chair falling backwards Location of fall: Patient room Contributing factors: none reported Medication List: Reviewed Current Facility-Administered Medications: atropine 0.5 mg injection NaCl 0.9% iv flush bag sodium chloride 0.9 % (flush) 3-5 mL (BD POSIFLUSH) aluminum-magnesium hydroxide-simethicone 200-200-20 mg/5 mL 30 mL (MAALOX,MYLANTA,MAG-AL PLUS) acetaminophen 650 mg tab(s) (TYLENOL) insulin lispro injection (rapid acting) (ADMELOG) hydrALAZINE 10 mg injection (APRESOLINE) lisinopril 20 mg tab(s) (ZESTRIL, PRINIVIL) tamsulosin 0.4 mg cap(s) (FLOMAX) [COMPLETED] CT ABD/PEL WO IVCON AND enteric contrast (radiology procedure) insulin lispro injection (rapid acting) (ADMELOG) pioglitazone 45 mg tab(s) (ACTOS) insulin glargine 26 Units pen (long acting) (LANTUS SOLOSTAR, BASAGLAR KWIKPEN) docusate sodium 100 mg cap(s) (COLACE) polyethylene glycol 3350 17 g packet (MIRALAX, GLYCOLAX) venlafaxine ER 37.5 mg cap(s) (EFFEXOR XR) dextrose 40 % 15 g OR glucagon 1 mg injection OR dextrose 10% iv bolus Recent Lab Results: CBC: Recent Labs 01/18/22 0527 WBC 6.34 RBC 4.82 HB 13.9 HCT 41.5 PLT 258 MCV 86.1 MCH 28.8 MPV 9.8 Coags: No results for input(s): PT, INR, APTT in the last 24 hours. BMP: Recent Labs 01/18/22 0527 NA 137 K 4.7 CHLOR 101 CO2 26 BUN 24 CREAT 1.18 GLUC 415* Physical Exam BP 185/104 Pulse 93 Temp 36.9 ?C (98.4 ?F) (Oral) Resp 18 Ht 177.8 cm (5' 10") Wt 115.1 kg (253 lb 11.2 oz) SpO2 95% BMI 36.40 kg/m? Is the Patient Experiencing Pain: Yes: PAIN CHARACTER: aching and soreness Imaging studies included CT Scan of Head and Cspine w/o contrast General appearance: Alert, unkempt, in some acute distress Skin: Skin color, texture, turgor normal, no suspicious rashes or lesions Head: Normocephalic, no masses, lesions, tenderness or abnormalities Eyes: Anicteric sclera. Pupils are equally round and reactive to light. Extraocular movements are intact. Neck: Supple, no adenopathy; thyroid symmetric, normal size, no bruits, Positive findings: Cervical tenderness on movement, worse to right. Musculoskeletal: No joint swelling, deformity, or tenderness Peripheral pulses: Normal Neuro: Negative findings: speech normal, mental status intact, Positive findings: weakness/unsteady with ambulation(uses cane), Oriented X 3 Post-Fall Assessment/Plan Fall Injury: No noted physicial (more content not included)... Normal [facility] Magnesium [facility] [place] 01-19 Magnesium [Mass/Vol] 1.9 mg/dL Normal 1.7-2.3 [facility] Comment on above: Order Comment: Speci men Type: BLOOD SPECIMENOrdering Facility: [facility] Address: [address] [place] [phone] Performed By: #### 1 9123-9, 58344-7 ####[facility] [id number] [address] [place] [address] [place] NURSING PROGon 01-19-2022 NURSING PROG HNO ID: [id number] Author: Rebecca Goetz RN Service: Nursing Author Type: Registered Nurse Type: Nursing Progress Note Filed: 01/19/2022 4:04 AM Note Text: Post Fall Assessment José Manuel Ashton [id number] Witnessed: No How did fall occur: Pt reported he was attempting to lean further back in recliner and it tipped back Location: Patient room Contributing factors: none reported Brief factual description: Pt said the bed wanted a reclining chair to lay in. Chair taken to patients room and locked. Pt attempted to recline chair further back and said the chair tipped backwards and he fell. (*Document vital signs, neuro checks, blood sugars in the appropriate flow sheet.) Initial Physical Assessment Injury: No Patient hit head: Yes - Initiate Neuro Checks Immediate actions taken: Assisted back to bed / chair and Diagnostic testing Head CT Name of LIP notified: Liam Saldana guest services officer Notify family as appropriate: Pt declined family notification Post fall interventions: Fall Huddle Conducted, Bed Alarm On, Frequent Observation, Patient/Family Education, Apply a Yellow Wrist Band, Apply [place] Risk Symbol to the Door, and My Safety Plan Updated This note was completed by:Rebecca Goetz [facility] THERAPY NTon 01-19-2022 THERAPY NT HNO ID: [id number] Author: Prasanth Jeronimo PT Service: Physical Therapy Author Type: Physical Therapist Type: Therapy (PT/OT/Speech/Resp) Filed: 01/19/2022 3:22 PM Note Text: Physical Therapy Evaluation SERVICE DATE: 01/19/2022 SERVICE TIME: 1419 to 1450 ROOM: [address] [address] Recommended Discharge Disposition: Subacute/SNF Recommended Discharge Disposition Comments: Pt unsteady during session but was able to recover from LOB with cane well with CGA. Pt adamant against going to a SNF and does not want PT because he states it only makes him hurt worse. Pt stated he is mobilizing close to baseline. Rec SNF and if pt declines rec OP PT. Recommended Discharge Disposition Due to: Patient requires daily, facility-based rehabilitation from at least one discipline due to:;decline in functional status requiring daily skilled care;ongoing intervention of multiple therapy disciplines Anticipated Discharge Needs: Physical Assist at Home Physical Assist at Home for: Cleaning;Laundry;Shopping; Transportation Recommended Discharge Equipment: To Be Determined PT 6 Clicks Score: 21 Precautions/Activity Restrictions: Fall Risk Current Hospital Course: fall on 01/18 Reason for Hospital Admission: hyperglycemic; presents the emergency department 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, poorly controlled DM2, CKD, lumbar radiculopathy, HLD, HTN, diverticulosis, rectal adenocarcinoma status post rectal tumor resection Response to Therapy Interventions: Good participation in activities, On-track to achieve discharge goals, Pain, Requires additional time to complete activities Continue skilled needs due to: Functional mobility/skill impairments Physical Therapy Problem List: Pain;Decreased Strength;Functional Mobility Impairment;Balance Impaired;Decreased Range Of Motion Treatment Interventions: Education;Strengthening;Fu nctional Mobility Training;Balance Training;Pain Management Plan for next visit: Bed mobility, Gait training, Stairs training Home Environment Patient Lives With: Family (brother) Assistance Available: 24-Hour Entry To Home: Stairs;With Rail Number Of Stairs Into Home: 5 Number Of Stairs To Bed/Bath: 0 Tub/Shower Type: tub shower Laundry: basement Equipment Owned: Cane Prior Functional Level: Within Functional Limits Prior Functional Level Comments: patient reports being completely independent prior to admission uses cane for ambulation. Pt stated he is typically unsteady but can self correct. No falls this past year. Patient Report: "Ever since I hurt my groin it's been tough. I won't go back to PT it just made it hurt. The walker makes me fall more than my cane." CURRENT FUNCTIONAL STATUS: Most recent performance Current Functional Mobility Assist Level Additional Information Rolling Supine to Sit Independent Sit to Supine Independent Scooting Independent Sit to Stand Supervision Stand to Sit Supervision Bed to Chair Supervision Bed To Chair Transfer Type: Stepping Bed To Chair Transfer Equipment: Cane Toilet/Commode Gait Contact Guard Assistance;Additional Information Gait Device: Cane Gait Distance (feet): 54 ft Pt appears unsteady throughout, however stated that is his baseline due to the L groin pain and hx of vertigo. Pt able to use cane successfully to recover and refuses to trial WW. Stairs Curb Step Car Transfer Blank cunningham indicate activity not attempted Gait Deviations Left Lower Extremity: Weight bearing decreased;Stance time decreased;Lacks hip extension beyond mid-stance;Foot clearance decreased;Heel strike during initial stance decreased General Deviations/Observations: Antalgic gait;Melody decreased;Lateral sway increased;Step length decreased;UE weight bearing on assistive device excessive Range of Motion: WFL Except;ROM Limitation Comments ROM Limitation Comments: LLE limited by groin pain but WFL Strength: WFL Except;Strength Limitation Comments Strength Limitation Comments: BLE WFL and at least 4+/5, except L hip flex 3/5 due to groin pain Decreased sensation in LLE per pt, however able to feel light touch. Balance: Dynamic Sitting;Dynamic Standing Dynamic Sitting Balance: Normal Patient accepts maximal challenge and can shift weight easily within full range in all directions Dynamic Standing Balance: Fair Patient accepts minimal challenge, able to maintain balance while turning head/trunk -HLM: 7: Walk 25 feet or more Learning/Educational Needs: Discharge Plan;Equipment;Functional Activities/Mobility;Plan of Care;Rehabilitation Techniques and Procedures;Safety Goals for Plan of Care: Patient /Caregiver Goals: Go Home Goals: Patient will demonstrate understanding of importance of mobility during hospital stay and resolve all functional needs identified.;Patient will demonst (more content not included)... Normal [facility] URINALYSIS, REFLEX MICROSCOP ICon 01-19-2022 Bilirubin Ql (U) Negative Normal Negative [facility] Comment on above: Order Comment: Speci men Type: URINE SPECIMENOrdering Facility: [facility] Address: [address] [place] [address] Performed By: #### L [id number] ####[facility] [id number] [address] [place] Clarity (Unsp spec) Clear Normal Clear [facility] Comment on above: Order Comment: Speci men Type: URINE SPECIMENOrdering Facility: [facility] Address: [address] [place] [address] Performed By: #### L [id number] ####[facility] [id number] [address] [place] Color (U) Yellow Normal Yellow [facility] Comment on above: Order Comment: Speci men Type: URINE SPECIMENOrdering Facility: [facility] Address: [address] [place] [address] Performed By: #### L [id number] ####[facility] [id number] [address] [place], [place] [id number] [facility] Epithelial cells LM.HPF (Urine sed) [#/Area] Few Normal [facility] Comment on above: Order Comment: Speci men Type: URINE SPECIMENOrdering Facility: [facility] Address: [address] [place] [address] Result Comment: Few Performed By: #### L [id number] ####[facility] [id number] [address] [place], [place] [id number] [facility] Glucose Test strip (U) [Mass/Vol] 2+ Abnormal Negative [facility] Comment on above: Order Comment: Speci men Type: URINE SPECIMENOrdering Facility: [facility] Address: [address] [place] [address] Performed By: #### L [id number] ####[facility] [id number] [address] [place], [place] [id number] [place] [facility] Hemoglobin Ql (U) 1+ Abnormal Negative [facility] Comment on above: Order Comment: Speci men Type: URINE SPECIMENOrdering Facility: [facility] Address: [address] [place] [address] Performed By: #### L [id number] ####[facility] [id number] [address] [place], [place] [id number] [place] Ketones Ql (U) Trace Abnormal Negative [facility] Comment on above: Order Comment: Speci men Type: URINE SPECIMENOrdering Facility: [facility] Address: [address] [place] [address] Performed By: #### L [id number] ####[facility]ORATORYCLIA [id number] [address] [place], [place] [id number] [place] Leukocyte esterase Test strip Ql (U) Negative Normal Negative [facility] Comment on above: Order Comment: Speci men Type: URINE SPECIMENOrdering Facility: [facility] Address: [address] [place] [address] Performed By: #### L [id number] ####[facility]ORATORYCLIA [id number] [place] [address] [place] Nitrite Ql (U) Negative Normal Negative [facility] Comment on above: Order Comment: Speci men Type: URINE SPECIMENOrdering Facility: [facility] Address: [address] [place] [address] Performed By: #### L [id number] ####[facility]ORATORYCLIA [id number] [place] [address] [place] pH (U) 7.0 [pH] Normal 5.0-8.0 [facility] Comment on above: Order Comment: Speci men Type: URINE SPECIMENOrdering Facility: [facility] Address: [address] [place] [address] Performed By: #### L [id number] ####[facility]ORATORYCLIA [id number] [address] [place] Protein (U) [Mass/Vol] Normal [facility] Comment on above: Order Comment: Speci men Type: URINE SPECIMENOrdering Facility: [facility] Address: [address] [place] [address] Result Comment: Visi ble blood causes falsely elevated results for analyte Protein. Due to this limitation, Protein will not be reported for patients whose urine contains visible blood. Performed By: #### L [id number] ####[facility]ORATORYCLIA [id number] [place] [id number] [place] RBC LM.HPF (Urine sed) [#/Area] 6-10 /HPF Abnormal 0-3 /HPF [facility] Comment on above: Order Comment: Speci men Type: URINE SPECIMENOrdering Facility: [facility] Address: [address] [place] [address] Performed By: #### L [id number] ####[facility] LABORATORYCLIA [id number] [place] [address] [place] Specific gravity (U) [Rel density] 1.020 Normal 1.005-1.030 [facility] Comment on above: Order Comment: Speci men Type: URINE SPECIMENOrdering Facility: [facility] Address: [address] [place] [address] Performed By: #### L [id number] ####[facility]ORATORYCLIA [id number] [address] Urobilinogen Ql (U) 0.2 EU/dL Normal 0.2-1.0 EU/dL [facility] Comment on above: Order Comment: Speci men Type: URINE SPECIMENOrdering Facility: [facility] Address: [address] [place] [address] Performed By: #### L [id number] ####[facility] LABORATORYCLIA [id number] [place] [address] [place] WBC LM.HPF (Urine sed) [#/Area] 0-5 /HPF Normal 0-5 /HPF [facility] Comment on above: Order Comment: Speci men Type: URINE SPECIMENOrdering Facility: [facility] Address: [address] [place] [address] Performed By: #### L [id number] ####[facility] LABORATORYCLIA [id number] [place] [id number] [facility] [place] ALLIED HEALTHon 01-18-2022 ALLIED HEALTH HNO ID: [id number] Author: MARCOS Brush Service: Radiology Author Type: Toll Ticket Clerk Type: Allied Health Filed: 01/18/2022 10:17 AM Note Text: Radiology Service Progress Note PATIENT NAME: José Manuel Ashton DATE OF SERVICE: January 18, 2022 TIME: 10:17 AM PATIENT IDENTITY VERIFICATION COMPLETED USING TWO (2) IDENTIFIERS: Name and Date of confirmed by patient verbally and Name and Date of confirmed by identification band. FALL SCREENING: Has the patient had 2 falls in the last year or 1 fall with injury or currently using an Ambulatory Assistive Device (Walker, Cane, Wheelchair, Crutches, etc.)? Inpatient: Screened on floor PATIENT GENDER DATA: Male PATIENT RELEVANT IMPLANT DATA REVIEWED: Not Applicable RADIOLOGY DEPARTMENT: CT; Exam(s) Completed: Abdomen/Pelvis PERIPHERAL IV DATA: Not applicable SIGNED BY: MARCOS Brush January 18, 2022 10:17 AM [facility] HNO ID: [id number] Author: MARCOS Brush Service: Radiology Author Type: Toll Ticket Clerk Type: Allied Health Filed: 01/18/2022 9:07 AM Note Text: ORAL CONTRAST TAKEN TO 4D AND GIVEN TO PATIENTS NURSE JAYESH. 20ML OPTIRAY 240 AND 450ML WATER. [facility] Basic metabolic 2000 panelon 01-18-2022 Anion gap [Moles/Vol] 10 mmol/L Normal 12-19 [facility] Comment on above: Order Comment: Speci men Type: BLOOD SPECIMEN [facility] Address: [address] [place] [address] Performed By: #### 5 8410-2 #### [facility] CLIA [id number] [address] [place] [address] [place] Calcium [Mass/Vol] 8.9 mg/dL Normal 8.5-10.2 [facility] Comment on above: Order Comment: Speci men Type: BLOOD SPECIMEN [facility] Address: [address] [place] [address] Performed By: #### 5 8410-2 #### [facility] CLIA [id number] [address] [place], [place] [id number] [place] Chloride [Moles/Vol] 101 mmol/L Normal 97-105 [facility] Comment on above: Order Comment: Speci men Type: BLOOD SPECIMEN [facility] Address: [address] [place] [address] Performed By: #### 5 8410-2 #### [facility] CLIA [id number] [address] [place] [address] [place] CO2 [Moles/Vol] 26 mmol/L Normal 22-30 [facility] Comment on above: Order Comment: Speci men Type: BLOOD SPECIMEN [facility] Address: [address] [place] [address] Performed By: #### 5 8410-2 #### [facility] [place] [id number] [address] [place] [address] [place] Creatinine [Mass/Vol] 1.18 mg/dL Normal 0.73-1.22 [facility] Comment on above: Order Comment: Speci men Type: BLOOD SPECIMEN [facility] Address: [address] [place] [address] Performed By: #### 5 8410-2 #### [facility] [place] [id number] [address] [place] [address] [place] [facility] ESTIMATED GLOMERULAR FILTRATION RATE 70 mL/min/1.73m??? Normal >=60 [facility] Comment on above: Order Comment: Speci men Type: BLOOD SPECIMEN [facility] Address: [address] [place] [address] Result Comment: Breanne mated Glomerular Filtration Rate (eGFR) is calculated using the 2020 CKD-EPI creatinine equation. This equation utilizes serum creatinine, sex, and age as parameters. The creatinine assay has traceable calibration to isotope dilution-mass spectrometry. Refer to KDIGO guidelines for clinical interpretation. In patients with unstable renal function, e.g. those with acute kidney injury, the eGFR may not accurately reflect actual GFR. Performed By: #### 5 8410-2 #### [facility] [place] [id number] [address] [place], [place] [id number] [place] Glucose [Mass/Vol] 415 mg/dL High 74-99 [facility] Comment on above: Order Comment: Speci men Type: BLOOD SPECIMEN [facility] Address: [address] [place] [address] Result Comment: The [place] Diabetes [employer] (ADA) provides guidance for cutoff values for fasting glucose and random glucose. The ADA defines fasting as no caloric intake for at least 8 hours. Fasting plasma glucose results between 100 to 125 mg/dL indicate increased risk for diabetes (prediabetes). Fasting plasma glucose results greater than or equal to 126 mg/dL meet the criteria for diagnosis of diabetes. In the absence of unequivocal hyperglycemia, results should be confirmed by repeat testing. In a patient with classic symptoms of hyperglycemia or hyperglycemic crisis, random plasma glucose results greater than or equal to 200 mg/dL meet the criteria for diagnosis of diabetes. Reference: Standards of Medical Care in Diabetes 2016, [place] [employer]. Diabetes Care. 2016.39(Suppl 1). Performed By: #### 5 8410-2 #### [facility] CLIA [id number] [address] [place] [address] [place] Potassium [Moles/Vol] 4.7 mmol/L Normal 3.7-5.1 [facility] Comment on above: Order Comment: Speci men Type: BLOOD SPECIMEN [facility] Address: [address] [place], [place] [address] Performed By: #### 5 8410-2 #### [facility] CLIA [id number] [address] [place] [address] [place] Sodium [Moles/Vol] 137 mmol/L Normal 136-144 [facility] Comment on above: Order Comment: Speci men Type: BLOOD SPECIMEN [facility] Address: [address] [place] [address] Performed By: #### 5 8410-2 #### [facility] CLIA [id number] [address] [place] [address] [place] Urea nitrogen [Mass/Vol] 24 mg/dL Normal 9-24 [facility] Comment on above: Order Comment: [place] men Type: BLOOD SPECIMEN [facility] Address: [address] [place] [address] Performed By: #### 5 8410-2 #### [facility] CLIA [id number] [address] [place] [address] [place] CASE MGT INIT Yareli 2021 CASE MGT INIT [facility] HNO ID: [id number] Author: OSCAR Bennett Service: Social Work Author Type: Finishing Room Operator Type: Care Mgt Initial Assessment Filed: 01/18/2022 4:11 PM Note Text: CARE MANAGEMENT: ASSESSMENT AND DISCHARGE PLAN SERVICE DATE: January 18, 2022 SERVICE TIME: 4:06 PM PRIMARY CARE PHYSICIAN: Belgica Vega DO Primary Contact: Extended Emergency Contact Information Primary Emergency Contact: Meche Sanders Mobile Relation: Sister Secondary Emergency Contact: Marek Ashton Mobile Relation: Brother ADMISSION STATUS: Inpatient Insurance Provider: MEDICARE A AND B NEEDS PRIOR TO DISCHARGE Needs Prior to Discharge: To Be Determined POTENTIAL TRANSITION PLANS To Be Determined Based on clinical judgement, Care Management will address the following needs: Medical;Social;Cognitive Patient's perception of need for this admission: my doctor told me to come to the hospital for an assessment" ADVANCE DIRECTIVES Current Advance Directive: None Assistant Center Manager Attempted to Assist with AD Completion: Yes Action: Patient Unwilling MS/BEHAVIOR Baseline Mental Status Prior to this Illness what was the patient's Baseline Mental Status?: History of Mental Illness;Confused;Alert AND Oriented Prior to this illness, has anyone described the patient having any of the following behaviors?: Not Applicable Relationship of the informant to the patient:: Self READMISSION Last Discharge Date: 09/07/21 Is this Within the Past 30 days? From what level of care did patient present?: Home Last discharge within 30 days: No PATIENT SCREEN Patient/Social Media Senior Associate Stated Goals: To have reduction in symptoms;To return home to life as it was Payor gaps or opportunities/consideratio ns/situation: Medicaid/OOS Medicaid Under the care of a PCP?: Yes, Internal Provider Provider Name: Belgica Vega, DO Does the patient have transportation upon discharge?: Yes Use of any community resources?: No Does the patient have a stable and supportive living arrangement and home setting?: Yes Are there any potential risks or gaps identified by risk/functional/fall,etc. scores in the EMR?: No Any potential risks related to substance abuse and/or behavioral health?: Yes Situation: smokes marijuana daily, UDS also positive for ETOH Based on clinical judgement, Care Management will address the following needs: Medical;Social;Cognitive CAREGIVER ASSESSMENT Caregiver is ready, willing and able to meet the patient's needs as recommended by the inter-professional team:: No Caregiver needed Patient's transition needs and plan for meeting these needs: TBD MEDICAL Medical Needs: Diabetes;Two or more chronic diseases Diabetes: Education;Poor management Health Issues Impacting Discharge Plan: Uncontrolled Uncontrolled: DM Medication Adherance I am convinced of the importance of my prescription medication: 20 - Disagree Completely I worry that my prescription medication will do more harm than good to me : 14 - Agree Mostly I feel financially burdened by my loe-um-wygiml expenses for my prescription medication:: 0 - Disagree Mostly Risk Score: 34 Patient is categorized as: High risk score > 8: The following interventions are being put into place. Interventions: Consult social work;Consult pharmacy;Vouchers/coupons given for medications;Medical team aware of challenges SOCIAL Living Arrangements: Home Lives With: Other: See Comment (lives w brother and sister) Financial Resources: Disabled Supportive Patient Contact:: Yes Contact Resources: Family Is Patient Psychosocially Complex?: Yes, refer to Social Work Contact Resources: Family Health Literacy How often do you need to have someone help you when you read instructions, pamphlets, or other written material from your doctor or pharmacy? : 3 - Sometimes How confident are you filling out medical forms by yourself?: 3 - Somewhat If Patient scores > 3 on either question, the following interventions were put into place:: Teach back methods employed to ensure comprehension;Use of plain language and active listening with Patient and family;Gave Patient the opportunity to ask questions;Use concrete and specific phrases, avoid medical jargon Food Insecurity: Unknown Worried About Running Out of Food in the Last Year: Patient refused Ran Out of Food in the Last Year: Patient refused Financial Resource Strain: Unknown Difficulty of Paying Living Expenses: Patient refused Transportation Needs: Unknown Lack of Transportation (Medical): Patient refused Lack of Transportation (Non-Medical): Patient refused Housing Stability: Unknown Unable to Pay for Housing in the Last Year: Patient refused Number of Places Lived in the Last Year: 1 Unstable Housing in the Last Year: Patient refused BEHAVIORAL/COGNITIVE Psychosocial Psychosocial Needs: Mental Health Diagnosis (more content not included)... Normal [facility] CBC panel Auto (Bld)on 01-18 Erythrocyte distribution width (RBC) [Ratio] 13.0 % Normal 11.5-15.0 [facility] Comment on above: Order Comment: Speci men Type: BLOOD SPECIMEN [facility] Address: [address] [place] [address] Performed By: #### 5 8410-2 #### [facility] CLIA [id number] [address] [place] [address] Hematocrit (Bld) [Volume fraction] 41.5 % Normal 39.0-51.0 [facility] Comment on above: Order Comment: Speci men Type: BLOOD SPECIMEN [facility] Address: [address] [place] [address] Performed By: #### 5 8410-2 #### [facility] CLIA [id number] [address] [place] [address] [place] Hemoglobin (Bld) [Mass/Vol] 13.9 g/dL Normal 13.0-17.0 [facility] Comment on above: Order Comment: Speci men Type: BLOOD SPECIMEN [facility] Address: [address] [place] [address] Performed By: #### 5 8410-2 #### [facility] CLIA [id number] [address] [place] [address] [place] MCH (RBC) [Entitic mass] 28.8 pg Normal 26.0-34.0 [facility] Comment on above: Order Comment: Speci men Type: BLOOD SPECIMEN [facility] Address: [address] [place] [address] Performed By: #### 5 8410-2 #### [facility] CLIA [id number] [address] [place] [address] [place] MCHC (RBC) [Mass/Vol] 33.5 g/dL Normal 30.5-36.0 [facility] Comment on above: Order Comment: Speci men Type: BLOOD SPECIMEN [facility] Address: [address] [place], [place] [address] Performed By: #### 5 8410-2 #### [facility] CLIA [id number] [address] [place] [address] [place] MCV (RBC) [Entitic vol] 86.1 fL Normal 80.0-100.0 [facility] Comment on above: Order Comment: Speci men Type: BLOOD SPECIMEN [facility] Address: [address] [place], [place] [address] Performed By: #### 5 8410-2 #### [facility] IA [id number] [address] [place] [address] [place] Nucleated RBC (Bld) [#/Vol] 10*3/uL Normal <0.01 [facility] Comment on above: Order Comment: Speci men Type: BLOOD SPECIMEN [facility] Address: [address] [place], [place] [address] Performed By: #### 5 8410-2 #### [facility] [id number] [address] [place] [address] [place] Platelet mean volume (Bld) [Entitic vol] 9.8 fL Normal 9.0-12.7 [facility] Comment on above: Order Comment: Speci men Type: BLOOD SPECIMEN [facility] Address: [address] [place], [place] [address] Performed By: #### 5 8410-2 #### [facility] CLIA [id number] [address] [place] [address] [place] Platelets (Bld) [#/Vol] 258 10*3/uL Normal 150-400 [facility] Comment on above: Order Comment: Speci men Type: BLOOD SPECIMEN [facility] Address: [address] [place] [address] Performed By: #### 5 8410-2 #### [facility] IA [id number] [address] [place], [place] [address] [facility] RBC (Bld) [#/Vol] 4.82 10*6/uL Normal 4.20-6.00 [facility] Comment on above: Order Comment: Speci men Type: BLOOD SPECIMEN [facility] Address: [address] [place], [place] [address] Performed By: #### 5 8410-2 #### [facility] IA [id number] [address] [place], [place] [address] [facility] WBC (Bld) [#/Vol] 6.34 10*3/uL Normal 3.70-11.00 [facility] Comment on above: Order Comment: Speci men Type: BLOOD SPECIMEN [facility] Address: [address] [place], [place] [address] Performed By: #### 5 8410-2 #### [facility] [place] [id number] [address] [place], [place] [address] [facility] CONSULTon 01-18-2022 CONSULT HNO ID: [id number] Author: Rafal Carroll PA-C Service: Psychiatry Author Type: Physician Generator Assembler Type: Consults Filed: 01/19/2022 3:08 PM Note Text: TEACHING PA NOTE OF PERSONAL INVOLVEMENT IN CARE I have reviewed the history and physical examination obtained and documented by the PA student and I personally participated in the jiang components including interviewing the patient and the management of this patient's care. I have discussed the case and management of the patient's care with this individual. The following comments revise or confirm relevant components of the note: José Manuel Ashton is a 61 year old male with history of MDD, BRANDAN, Cannabis Use Disorder, Tobacco Use Disorder (in remission), Alcohol Use Disorder (in full remission?), Obesity, DM2, HTN, BPH, CKD3, Vitamin D Deficiency, Malignant Neoplasm of Rectum, who presented to the ED as recommended by his refrigeration insulator for a psychiatric evaluation in the context of poor compliance to treatment. 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 Kennedy for "psych eval" who saw him in office earlier today. Note from Dr. Kennedy is as follows, "He doesn't have a will to take any medications or do anything to improve his health. He states he would like to get better but doesn't understand why he feels like not taking any of his medications. He feels depressed and very overwhelmed. He denies hallucinations or suicidal or homicidal ideation. Will send the patient to the ER for psychiatric evaluation." The patient again denies SI, HI, hallucinations. Patient reports a known psychiatric history of anxiety and depression for which he sees outpatient psychiatry. He is prescribed Wellbutrin which he is not currently taking. The patient smokes marijuana and uses alcohol on occasion to help with his anxiety and "anger." Patient lives with his brother and sister. He does not receive any medical assistance at home and states that he would prefer not to have a nurse come to his house as his brother would "spread rumors about his health problems." The patient reiterates to me that he is "confused" by the amount of medications he is prescribed. He states he does not understand why he is taking them. He states I will try to do good and take them for 2 to 3 days in a row, but then I just stop." Of note, this is a longstanding issue. The patient was seen by a psychiatrist in May of this year after a short stay in a nursing facility. At that time the patient was unwilling to take his medications and Dr. Leon of psychiatry placed a referral for home health." Met with patient at bedside. Patient is sedated but arousable. He is unkept, obese, in hospital gown. Oriented to mm/yy. Knows he is in the hospital but does not recall the name. Cooperative but gives minimal information. Somewhat drowsy during encounter. Occasionally dismissive. Thought process is linear/goal directed. Says he is here because the doctor sent him here because I was not taking my medication." Admits to longstanding history of poor compliance to meds. Does not offer a reason why he does not take his meds. Vague about his psychiatric symptoms. When asked if he is feeling depressed, states "I guess." Says he had a psychiatrist but "didn't go back." Was prescribed Wellbutrin, but didn't take. Per [facility], his last psych visit was in 05/31/[address] Inez Leon MD. Says sleep is poor. When asked about his appetite, he jokes about his obesity but then says he is cutting food intake down. Denies hallucinations. Energy is low, "I need energy." Denies SI or HI. Denies history of suicide. Voices frustration over his toxicology results, says he has not had alcohol for 40+ years, does not understand how he could be + for alcohol. BAL 26 on 01/17/2022 @8:47 PM. UDS + thc. When asking how much he has been smoking, states "as much as I want." When asked to clarify, reports using 3 joints per day. Admits to feeling "confused," but not able to elaborate. Reports feeling somewhat anxious today. Reports history of anger, I go off sometimes. At this time, it's unclear if low energy, low motivation, not caring for his health, ?cognitive impairment are 2/2 depression and/or substance induced, and/or 2/2 medical conditions. Lab Results Component Value Date UAMPH Negative 01/17/2022 UBARB2 Negative 01/17/2022 UBENZ Negative 01/17/2022 UCOC2 Negative 01/17/2022 UOPI Negative 01/17/2022 UOXYC Negative 01/17/2022 UPCP Negative 01/17/2022 UTHC Preliminary positive (A) 01/17/2022 UETOH <11 (more content not included)... [facility] CT ABD/PEL WO IVCONon 2021 CT ABD/PEL WO IVCON * * *Final Report* * * DATE OF EXAM: Jan 18 2022 10:16AM FAVIO 0531 - CT ABD/PEL WO IVCON / PROCEDURE REASON: LLQ abdominal pain * * * * Physician Interpretation * * * * EXAMINATION: CT ABDOMEN AND PELVIS WITHOUT IV CONTRAST CLINICAL HISTORY: TECHNIQUE: Non-IV contrast imaging of the abdomen and pelvis was performed using standard technique, scanning from just above the dome of the diaphragm to the symphysis pubis. Unenhanced imaging is limited for the evaluation of some intra-abdominal and pelvic pathology. MQ: CTAPWO_3 Contrast: IV: None Oral: 450 ml of Omni 240 10-25ml diluted with water CT Radiation dose: Integrated Dose-length product (DLP) for this visit = 1465 mGy*cm. CT Dose Reduction Employed: Automated exposure control(AEC) and iterative recon COMPARISON: None. RESULT: Abdomen / Pelvis: Liver: Calcified granulomas in the liver. Biliary: No calcified gallstones are seen. Spleen: Calcified granulomas in the spleen. Pancreas: Unremarkable. Adrenals: No mass. Kidneys: Probable small cortical cyst in the left kidney which are too small fully characterize. No left renal calculus or hydronephrosis. No right renal calculus, hydronephrosis, renal lesion. GI Tract: Diverticulosis of the colon. Fecal residue in the colon. No acute inflammatory process identified involving the bowel. No evidence of bowel obstruction. Appendix is normal in appearance. Lymph Nodes: No lymphadenopathy. Mesentery/peritoneum: No ascites. Retroperitoneum: No mass. Vasculature: Atherosclerotic calcification involving the abdominal aorta and its branch structures. Pelvis: No free fluid or free air identified. Diffuse mural thickening of the bladder. No inguinal hernia, mass, or adenopathy. Possible postsurgical changes involving the right inguinal canal. Bones/Soft Tissues: Intervertebral disc space narrowing and endplate osteophyte formation at multiple levels in the lumbar limits thoracic spine. No acute osseous abnormality identified. Lower thorax: Atelectasis or scarring in the lung bases. Atherosclerotic calcifications involving the right coronary artery. Possible calcifications involving the mitral annulus. No pericardial effusion or pericardial thickening. Can Filling Room Sweeper (topogram) images: No additional findings. IMPRESSION: No acute process identified involving the abdomen or pelvis. There are findings possibly related to constipation. Findings of remote granulomatous disease. Diffuse mural thickening of the bladder likely related to chronic bladder outlet obstruction. Additional findings noted above. Field Administrative Assistant: ROBERTA Transcribe Date/Time: Jan 18 2022 11:14A Dictated by : PRASANTH DARNELL MD This examination was interpreted and the report reviewed and electronically signed by: PRASANTH DARNELL MD on Jan 18 2022 11:21AM EST [id number] [facility] ED NOTEon 01-18-2022 ED NOTE HNO ID: [id number] Author: Los Nguyen RN Service: ? Author Type: Registered Nurse Type: ED Notes Filed: 01/17/2022 11:22 PM Note Text: Report given to justin Fernandez ready to be transferred at this time. [facility] ED NOTE HNO ID: [id number] Author: Los Nguyen RN Service: ? Author Type: Registered Nurse Type: ED Notes Filed: 01/17/2022 11:14 PM Note Text: POC 254 [facility] HISTORY PHYSICALon HISTORY PHYSICAL HNO ID: [id number] Author: Kylah Orantes MD Service: ? Author Type: Physician Type: HANDP Filed: 02/06/2022 12:27 PM Note Text: [facility] : 1960 AGE: 61 SEX: M CSN: [id number] [facility]: [facility] [place] LOCATION: [facility] ATTENDING PHYSICIAN: Kylah Orantes M.D. DATE OF SERVICE: 01/17/2022 A 61-year-old, who was admitted to the hospital after seen today by his physician for a psych evaluation. 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 Kennedy for "psych eval" who saw him in office earlier today. Note from Dr. Kennedy is as follows, "He doesn't have a will to take any medications or do anything to improve his health. He states he would like to get better but doesn't understand why he feels like not taking any of his medications. He feels depressed and very overwhelmed. He denies hallucinations or suicidal or homicidal ideation. Will send the patient to the ER for psychiatric evaluation." ASSESSMENT AND PLAN: 1. Hyperglycemia. Admitted. Monitor blood sugar. Sliding scale insulin. HbA1c if it is not done recently. 2. Drug alcohol abuse. Urine toxic and screen. Admitted for psych evaluation. Psych consultation. 3. Diabetes type 2. As above, sliding scale insulin. 4. Hypertension. Resume home medication. Monitor reading and adjust treatment as needed. Case has been discussed with ED and consultants. We will follow up. 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 Detected on EMG Rectal cancer (HCC) Spinal stenosis of lumbar region with neurogenic claudication Vitamin D deficiency Social History Tobacco Use Smoking status: Former Packs/day: 1.00 Years: 37.00 Pack years: 37.00 Types: Cigarettes Quit date: 04/03/2010 Years since quittin.8 Smokeless tobacco: Never Tobacco comments: Smokes [place] Vaping Use Vaping Use: Never used Substance Use Topics Alcohol use: Not Currently Drug use: Yes Types: Marijuana Comment: daily FAMILY HISTORY Problem Relation Age of Onset other (Heart stroke) Mother other (Glaucoma lung cancer) Father Glaucoma Sister Glaucoma Brother PAST SURGICAL HISTORY Procedure Laterality Date COLONOSCOPY GEN ANES 07/24/2020 Invasive Adenocarcinoma arising in a Tubulovillous Adenoma in the lower rectum, Tubular Adenomas, Fragment of Hyperplastic polyp, Internal Hemorrhoids EGD 07/24/2020 Will's Esophagus, Hyperplastic polyp in Duodenum EXCISION OF RECTAL TUMOR, TRANSANAL 11/24/2020 Dr. Ahmadi Lab Results Component Value Date HBA1C 13.4 01/03/2022 HBA1C 11.3 11/05/2021 HBA1C 11.5 10/05/2021 R.O.S negative other than HPI AND PMH all other SYS reviewed and negative. Current Facility-Administered Medications Medication Dose Route Frequency Provider Last Rate Last Admin NaCl 0.9% 1,000 mL iv bolus 1,000 mL INTRAVENOUS ONCE Ravinder Rascon MD 999 mL/hr at 01/17/222309 1,000 mL at 01/17/222309 dextrose 40 % 15 g 15 g ORAL PRN Ravinder Rascon MD Or glucagon 1 mg injection 1 mg INTRAMUSCULAR PRN Ravinder Rascon MD Or dextrose 10% iv bolus 12.5 g INTRAVENOUS PRN Ravinder Rascon MD Intake/Output Summary (Last 24 hours) at 01/17/2022 2339 Last data filed at 01/17/2022 2310 Gross per 24 hour Intake 1000 ml Output -- Net 1000 ml DATA: CBC: Recent Labs 01/17/222046 WBC 6.69 RBC 5.73 HB 16.1 HCT 49.3 PLT 283 MCV 86.0 MCH 28.1 MPV 9.3 CMP: Recent Labs 01/17/222046 NA 137 K 4.3 CHLOR 98 CO2 27 BUN 26* CREAT 1.22 GLUC 312* TPROT 7.0 CA 10.2 TBILI 0.3 ALKPHOS 127* ALT 15 AST 14 ANION 12 Glucose (mg/dL) Date Value 01/17/2022 312 (H) BUN (mg/dL) Date Value 01/17/2022 26 (H) Creatinine (mg/dL) Date Value 01/17/2022 1.22 Sodium (mmol/L) Date Value 01/17/2022 137 Potassium (mmol/L) Date Value 01/17/2022 4.3 Chloride (mmol/L) Date Value 01/17/2022 98 CO2 (mmol/L) Date Value 01/17/2022 27 Protein, Total (g/dL) Date Value 01/17/2022 7.0 Alb (more content not included)... Normal [facility] CBC panel Auto (Bld)on 01-17 Erythrocyte distribution width (RBC) [Ratio] 12.9 % Normal 11.5-15.0 [facility] Comment on above: Order Comment: Speci men Type: BLOOD SPECIMEN Ordering Facility: [facility] Address: [address] [place] [phone] Performed By: #### 5 8410-2 #### [facility] CLIA [id number] [address] [place] [address] Hematocrit (Bld) [Volume fraction] 49.3 % Normal 39.0-51.0 [facility] Comment on above: Order Comment: Speci men Type: BLOOD SPECIMEN Ordering Facility: [facility] Address: [address] [place] [address] Performed By: #### 5 8410-2 #### [facility] [place] [id number] [address] [place] [address] [place] Hemoglobin (Bld) [Mass/Vol] 16.1 g/dL Normal 13.0-17.0 [facility] Comment on above: Order Comment: Speci men Type: BLOOD SPECIMEN Ordering Facility: [facility] Address: [address] [place] [address] Performed By: #### 5 8410-2 #### [facility] IA [id number] [address] [place] [address] [place] [facility] MCH (RBC) [Entitic mass] 28.1 pg Normal 26.0-34.0 [facility] Comment on above: Order Comment: Speci men Type: BLOOD SPECIMEN Ordering Facility: [facility] Address: [address] [place] [address] Performed By: #### 5 8410-2 #### [facility] IA [id number] [address] [place] [address] [place] MCHC (RBC) [Mass/Vol] 32.7 g/dL Normal 30.5-36.0 [facility] Comment on above: Order Comment: Speci men Type: BLOOD SPECIMEN Ordering Facility: [facility] Address: [address] [place] [address] Performed By: #### 5 8410-2 #### [facility] CLIA [id number] [address] [place] [address] [place] MCV (RBC) [Entitic vol] 86.0 fL Normal 80.0-100.0 [facility] Comment on above: Order Comment: Speci men Type: BLOOD SPECIMEN Ordering Facility: [facility] Address: [address] [place], [place] [address] Performed By: #### 5 8410-2 #### [facility] CLIA [id number] [address] [place] [address] [place] Nucleated RBC (Bld) [#/Vol] 10*3/uL Normal <0.01 [facility] Comment on above: Order Comment: Speci men Type: BLOOD SPECIMEN Ordering Facility: [facility] Address: [address] [place], [place] [address] Performed By: #### 5 8410-2 #### [facility] CLIA [id number] [address] [place] [address] [place] Platelet mean volume (Bld) [Entitic vol] 9.3 fL Normal 9.0-12.7 [facility] Comment on above: Order Comment: Speci men Type: BLOOD SPECIMEN Ordering Facility: [facility] Address: [address] [place], [place] [address] Performed By: #### 5 8410-2 #### [facility] CLIA [id number] [address] [place] [address] [place] Platelets (Bld) [#/Vol] 283 10*3/uL Normal 150-400 [facility] Comment on above: Order Comment: Speci men Type: BLOOD SPECIMEN Ordering Facility: [facility] Address: [address] [place], [place] [address] Performed By: #### 5 8410-2 #### [facility] CLIA [id number] [address] [place] [address] [place] RBC (Bld) [#/Vol] 5.73 10*6/uL Normal 4.20-6.00 [facility] Comment on above: Order Comment: Speci men Type: BLOOD SPECIMEN Ordering Facility: [facility] Address: [address] [place], [place] [id number] Performed By: #### 5 8410-2 #### [facility] [id number] [address] [place] [address] [place] WBC (Bld) [#/Vol] 6.69 10*3/uL Normal 3.70-11.00 [facility] Comment on above: Order Comment: Speci men Type: BLOOD SPECIMEN Ordering Facility: [facility] Address: [address] [place], [place] [phone] Performed By: #### 5 8410-2 #### [facility] IA [id number] [address] [place], [place] [address] [facility] [place] CNOVon 01-17-2022 CNOV Office Visit (KIDLU ) -- POLIJOSÉ MANUEL Yao ([id number]) 1960 M T Date Time Provider Department 01/17/22 3:00 PM BILLY MARTINEZ During your visit today, we recorded the following information about you: Pulse Blood pressure Weight Height 90/minute 165/85 115.7 kg 1.778 m Billy Cody MD 01/17/2022 3:36 PM Signed [facility] [place] NEPHROLOGY CONSULT NOTE Patient Name: José Manuel Ashton Consultation requested by Belgica Vega DO, for an opinion regarding: CKD My final recommendations will be communicated back to the requesting physician by way of shared Medical record or letter to requesting physician via [place] mail. 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, depression, BRANDAN, uncontrolled DM-2 c/b NPDR and nephropathy; BPPV, OA, chronic low back pain with radiculopathy and neurogenic claudication; hyponatremia, HLD, uncontrolled HTN, glaucoma suspect, diverticulosis, family h/o colon cancer (his brother from it), T1 invasive rectal adenocarcinoma arising in a tubulovillous adenoma s/p polypectomy on 07/24/20; s/p transanal excision of rectal tumor on 11/24/20; s/p colonic tubular adenoma polypectomy 07/24/20, poor adherence with medications, ulcerated HSV esophagitis 04/19/21; multiple episodes of TARYN, and CKD stage 3a, who was referred for evaluation of CKD. Duration (when): since 2020 Location (where): the kidneys Severity (ex: creat 4.5, BP 200/100): serum creatinine up to 1.47 on 09/20/21 (best serum creatinine on record 0.86 on 02/17/20) Quality (ex: sharp, dull): chronic Context (ex: activity at onset or related to condition): presumed secondary to uncontrolled D-2,uncontrolled HTN, and obstruction from BPH Timing (ex: continuous, intermittent): continuous Modifying factors (ex: medications, interventions): pantoprazole and lisinopril Associated signs AND symptoms (ex: edema, SOB): azotemia He doesn't take any medications because he doesn't feel like taking any medications". He is having problems with chronic pain and lack of sleep. He states he stays up the whole night walking around in the house the whole night. He denies suicidal or homicidal ideation. He just smokes pot to calm himself down and it works. He avoids drinking alcohol because "it makes me mean so I avoid going down that route". He would like to get helped. He has a psychiatrist at [facility] [place], [place]. 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 Ahmadi FAMILY HISTORY: FAMILY HISTORY Problem Relation Age of Onset other (Heart stroke) Mother other (Glaucoma lung cancer) Father Glaucoma Sister Glaucoma Brother SOCIAL HISTORY: Social History Tobacco Use Smoking status: Former Packs/day: 1.00 Years: 37.00 Pack years: 37.00 Types: Cigarettes Quit date: 04/03/2010 Years since quittin.8 Smokeless tobacco: Never Tobacco comments: Smokes [place] Vaping Use Vaping Use: Never used Substance Use Topics Alcohol use: Not Currently Drug use: Yes Types: Marijuana Comment: daily Single. No children. He lives with his brother and sister. (He moved back from [place]). 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 He smokes marijuana (2 to 3 joints a day). MEDICATIONS: tamsulosin (FLOMAX) 0.4 mg Take 1 capsule by mouth once daily. rosuvastatin (CRESTOR) 5 mg tablet Take 1 tablet by mouth daily at bedtime. dulaglutide (TRULICITY) 1.5 mg/0.5 mL pen injector Inject 1.5 mg subcutaneously one time a week. pioglitazone (ACTOS) 45 mg tablet Take 1 tablet by mouth once daily. metFORMIN ER (GLUCOPHAGE XR) 500 mg 24 hr tablet Two tablets before breakfast and before supper Insulin [place], Disposable, (COMFORT EZ P (more content not included)... Normal [facility] Comprehensive metabolic 2000 panelon 01-17-2022 Albumin [Mass/Vol] 4.0 g/dL Normal 3.9-4.9 [facility] Comment on above: Order Comment: Speci men Type: BLOOD SPECIMEN Ordering Facility: [facility] Address: [address] [place] [phone] Performed By: #### 5 8410-2 #### [facility] CLIA [id number] [address] [place], [place] [address] [place] ALP [Catalytic activity/Vol] 127 U/L High 38-113 [facility] Comment on above: Order Comment: Speci men Type: BLOOD SPECIMEN Ordering Facility: [facility] Address: [address] [place] [address] Performed By: #### 5 8410-2 #### [facility] IA [id number] [address] [place], [place] [address] [place] ALT [Catalytic activity/Vol] 15 U/L Normal 10-54 [facility] Comment on above: Order Comment: Speci men Type: BLOOD SPECIMEN Ordering Facility: [facility] Address: [address] [place] [address] Performed By: #### 5 8410-2 #### [facility] IA [id number] [address] [place] [address] STATES [facility] Anion gap [Moles/Vol] 12 mmol/L Normal 9-18 [facility] Comment on above: Order Comment: Speci men Type: BLOOD SPECIMEN Ordering Facility: [facility] Address: [address] [place] [address] Performed By: #### 5 8410-2 #### [facility] IA [id number] [address] [place] [address] [place] AST [Catalytic activity/Vol] 14 U/L Normal 14-40 [facility] Comment on above: Order Comment: Speci men Type: BLOOD SPECIMEN Ordering Facility: [facility] Address: [address] [place] [address] Performed By: #### 5 8410-2 #### [facility] IA [id number] [address] [place], [place] [address] [place] Bilirubin [Mass/Vol] 0.3 mg/dL Normal 0.2-1.3 [facility] Comment on above: Order Comment: Speci men Type: BLOOD SPECIMEN Ordering Facility: [facility] Address: [address] [place] [address] Performed By: #### 5 8410-2 #### [facility] CLIA [id number] [address] [place] [address] [place] Calcium [Mass/Vol] 10.2 mg/dL Normal 8.5-10.2 [facility] Comment on above: Order Comment: Speci men Type: BLOOD SPECIMEN Ordering Facility: [facility] Address: [address] [place] [address] Performed By: #### 5 8410-2 #### [facility] CLIA [id number] [facility] [place] [address] [place] Chloride [Moles/Vol] 98 mmol/L Normal 97-105 [facility] Comment on above: Order Comment: Speci men Type: BLOOD SPECIMEN Ordering Facility: [facility] Address: [address] [place] [address] Performed By: #### 5 8410-2 #### [facility] CLIA [id number] [facility] [place] [address] [place] CO2 [Moles/Vol] 27 mmol/L Normal 22-30 [facility] Comment on above: Order Comment: Speci men Type: BLOOD SPECIMEN Ordering Facility: [facility] Address: [address] [place] [address] Performed By: #### 5 8410-2 #### [facility] CLIA [id number] [facility] [place], [place] [address] [place] Creatinine [Mass/Vol] 1.22 mg/dL Normal 0.73-1.22 [facility] Comment on above: Order Comment: Speci men Type: BLOOD SPECIMEN Ordering Facility: [facility] Address: [address] [place], [place] [address] Performed By: #### 5 8410-2 #### [facility] CLIA [id number] [address] [place] [address] [place] ESTIMATED GLOMERULAR FILTRATION RATE 67 mL/min/1.73m??? Normal >=60 [facility] Comment on above: Order Comment: Luz vaughan Type: BLOOD SPECIMEN Ordering Facility: [facility] Address: [address] [place] [address] Result Comment: Breanne mated Glomerular Filtration Rate (eGFR) is calculated using the 2020 CKD-EPI creatinine equation. This equation utilizes serum creatinine, sex, and age as parameters. The creatinine assay has traceable calibration to isotope dilution-mass spectrometry. Refer to KDIGO guidelines for clinical interpretation. In patients with unstable renal function, e.g. those with acute kidney injury, the eGFR may not accurately reflect actual GFR. Performed By: #### 5 8410-2 #### [facility] CLIA [id number] [address] [place] [address] [place] Glucose [Mass/Vol] 312 mg/dL High 74-99 [facility] Comment on above: Order Comment: Luz vaughan Type: BLOOD SPECIMEN Ordering Facility: [facility] Address: [address] [place] [address] Result Comment: The [place] Diabetes Association (ADA) provides guidance for cutoff values for fasting glucose and random glucose. The ADA defines fasting as no caloric intake for at least 8 hours. Fasting plasma glucose results between 100 to 125 mg/dL indicate increased risk for diabetes (prediabetes). Fasting plasma glucose results greater than or equal to 126 mg/dL meet the criteria for diagnosis of diabetes. In the absence of unequivocal hyperglycemia, results should be confirmed by repeat testing. In a patient with classic symptoms of hyperglycemia or hyperglycemic crisis, random plasma glucose results greater than or equal to 200 mg/dL meet the criteria for diagnosis of diabetes. Reference: Standards of Medical Care in Diabetes 2016, [place] [employer]. Diabetes Care. 2016.39(Suppl 1). Performed By: #### 5 8410-2 #### [facility] CLIA [id number] [address] [place], [place] [address] [place] Potassium [Moles/Vol] 4.3 mmol/L Normal 3.7-5.1 [facility] Comment on above: Order Comment: Speci men Type: BLOOD SPECIMEN Ordering Facility: [facility] Address: [address] [place] [address] Performed By: #### 5 8410-2 #### [facility] CLIA [id number] [address] [place] [address] [place] [facility] Protein [Mass/Vol] 7.0 g/dL Normal 6.3-8.0 [facility] Comment on above: Order Comment: Speci men Type: BLOOD SPECIMEN Ordering Facility: [facility] Address: [address] [place] [address] Performed By: #### 5 8410-2 #### [facility] CLIA [id number] [address] [place] [address] [place] Sodium [Moles/Vol] 137 mmol/L Normal 136-144 [facility] Comment on above: Order Comment: Speci men Type: BLOOD SPECIMEN Ordering Facility: [facility] Address: [address] [place] [address] Performed By: #### 5 8410-2 #### [facility] IA [id number] [address] [place] [address] [place] Urea nitrogen [Mass/Vol] 26 mg/dL High 9-24 [facility] Comment on above: Order Comment: Speci men Type: BLOOD SPECIMEN Ordering Facility: [facility] Address: [address] [place] [address] Performed By: #### 5 8410-2 #### [facility] CLIA [id number] [address] [place], [place] [id number] [place] ECG COMPLETEon 01-17-2022 ECG COMPLETE Ventricular Rate : 8 9 BPM Atrial Rate : 90 BPM P-R Interval : 155 ms QRS Duration : 111 ms Q-T Interval : 385 ms QTC Calculation(Bazett) : 469 ms Calculated P [place] : 35 degrees Calculated R [place] : 53 degrees Calculated T [place] : 52 degrees Sinus rhythm Probable left atrial enlargement Low voltage, precordial leads Probable anteroseptal infarct, old Abnormal ECG NO CHANGE FROM 04/21/21. OLMAN 01/17 Confirmed by MD RASCON BRYAN ([id number]), online editor MOHINDER LINDER ([id number]) on 01/18/2022 11:00:19 AM NAME : JOSÉ MANUEL ASHTON PID : [id number] : 1960 Gender : Male Race : ORD : [id number] Procedure Date : Jan 17 2022 20:58:11 Edit Date : Jan 18 2022 11:00:23 Diagnosis: Sinus rhythm Probable left atrial enlargement Low voltage, precordial leads Probable anteroseptal infarct, old Abnormal ECG NO CHANGE FROM 04/21/21. OLMAN 01/17 Confirmed by MD RASCON BRYAN ([id number]), online editor MOHINDER LINDER ([id number]) on 01/18/2022 11:00:19 AM Test Reason : Arrhythmia Location : 502 : LUED 12 Overread By : MD RASCON BRYAN Edited By : MOHINDER LINDER Referred By : , Acquired by : [facility] ED NOTEon 01-17-2022 ED NOTE HNO ID: [id number] Author: Regi Tavarez RN Service: Nursing Author Type: Registered Nurse Type: ED Notes Filed: 01/17/2022 6:34 PM Note Text: Pt sent by Dr Kennedy for psychiatric eval from appointment today Pt states he is having hard time understanding his medical dx and keeping up with his T2DM. 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 Kennedy for "psych eval" who saw him in office earlier today. Note from Dr. Kennedy is as follows, "He doesn't have a will to take any medications or do anything to improve his health. He states he would like to get better but doesn't understand why he feels like not taking any of his medications. He feels depressed and very overwhelmed. He denies hallucinations or suicidal or homicidal ideation. Will send the patient to the ER for psychiatric evaluation." The patient again denies SI, HI, hallucinations. Patient reports a known psychiatric history of anxiety and depression for which he sees outpatient psychiatry. He is prescribed Wellbutrin which he is not currently taking. The patient smokes marijuana and uses alcohol on occasion to help with his anxiety and "anger." Patient lives with his brother and sister. He does not receive any medical assistance at home and states that he would prefer not to have a nurse come to his house as his brother would "spread rumors about his health problems." The patient reiterates to me that he is "confused" by the amount of medications he is prescribed. He states he does not understand why he is taking them. He states I will try to do good and take them for 2 to 3 days in a row, but then I just stop." Of note, this is a longstanding issue. The patient was seen by a psychiatrist in May of this year after a short stay in a nursing facility. At that time the patient was unwilling to take his medications and Dr. Leon of psychiatry placed a referral for home health. 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 Ahmadi FAMILY HISTORY Problem Relation Age of Onset other (Heart stroke) Mother other (Glaucoma lung cancer) Father Glaucoma Sister Glaucoma Brother Social History Tobacco Use Smoking status: Former Packs/day: 1.00 Years: 37.00 Pack years: 37.00 Types: Cigarettes Quit date: 04/03/2010 Years since quittin.8 Smokeless tobacco: Never Tobacco comments: Smokes [place] Vaping Use Vaping Use: Never used Substance and Sexual Activity Alcohol use: Not Currently Drug use: Yes Types: Marijuana Comment: daily Sexual activity: Not Currently Partners: Female ALLERGIES Allergen Reactions Penicillins Unknown Pt states he thinks he had a reaction as a child Review of Systems Constitutional: Negative for chills and fever. HENT: Negative for congestion, sinus pressure, sore throat and trouble swallowing. Eyes: Negative for visual disturbance. Respiratory: Negative for shortness of breath. Cardiovascular: Negative for chest pain and leg swelling. Gastrointestinal: Negative for abdominal pain, diarrhea, nausea and vomiting. Genitourinary: Negative for difficulty urinating, flank pain and hematuria. Musculoskeletal: Negative for myalgias. Skin: Negative for color change. Neurological: Negative for seizures, syncope, facial asymmetry, weakness, numbness and headaches. Psychiatric/Behavioral: Negative for confusion and decreased concentration. Physical Exam Vitals [01/17/22 1632] BP Pulse Temp Temp src Resp SpO2 Weight Height 165/94 89 36.7 ?C (98.1 ?F) Oral 18 97 % -- -- Physical Exam Vitals and nursing note reviewed. Constitutional: General: He is not in acute distress. Appearance: Normal appearance. He is not ill-appea (more content not included)... Normal [facility] Ethanol [facility] [place] 022 Ethanol [Mass/Vol] 29 mg/dL High <11 [facility] Comment on above: Order Comment: Speci men Type: BLOOD SPECIMEN Ordering Facility: [facility] Address: [address] [place] [id number] Performed By: #### 5 8410-2 #### [facility] CLIA [id number] [address] KETONES/ACETONE/BHBon 2021 Beta hydroxybutyrate [Moles/Vol] 1.55 mmol/L High <0.28 [facility] Comment on above: Order Comment: Speci men Type: BLOOD SPECIMEN Ordering Facility: [facility] Address: [address] [place] [address] Performed By: #### 5 8410-2 #### [facility] CLIA [id number] [address] [place] [address] [place] TOX SCREEN ROUT URon 022 Amphetamines Confirm (U) [Mass/Vol] Negative Normal Negative [facility] Comment on above: Order Comment: Speci men Type: BLOOD SPECIMEN Ordering Facility: [facility] Address: [address] [place] [address] Result Comment: Cuto ff threshold at 1000 ng/mL. Performed By: #### 5 8410-2 #### [facility] CLIA [id number] [address] [place] [address] [place] BARBITURATES, URINE Negative Normal Negative [facility] Comment on above: Order Comment: Speci men Type: BLOOD SPECIMEN Ordering Facility: [facility] Address: [address] [place] [address] Result Comment: Cuto ff threshold at 200 ng/mL. Performed By: #### 5 8410-2 #### [facility] CLIA [id number] [address] [place] [address] [place] BENZODIAZEPINES, UR Negative Normal Negative [facility] Comment on above: Order Comment: Speci men Type: BLOOD SPECIMEN Ordering Facility: [facility] Address: [address] [place] [address] Result Comment: Cuto ff threshold at 200 ng/mL. Performed By: #### 5 8410-2 #### [facility] CLIA [id number] [address] [place] [address] [place] CANNABINOIDS,URINE Positive Abnormal Negative [facility] Comment on above: Order Comment: Speci men Type: BLOOD SPECIMEN Ordering Facility: [facility] Address: [address] [place] [address] Result Comment: Cuto ff threshold at 50 ng/mL. Performed By: #### 5 8410-2 #### [facility] CLIA [id number] [facility] [place] [id number] [place] Cocaine Ql (U) Negative Normal Negative [facility] Comment on above: Order Comment: Speci men Type: BLOOD SPECIMEN Ordering Facility: [facility] Address: [address] [place] [address] Result Comment: Cuto ff threshold at 300 ng/mL. Performed By: #### 5 8410-2 #### [facility] CLIA [id number] [address] [place], [place] [address] [place] Ethanol (U) [Mass/Vol] <11 Normal <11 [facility] Comment on above: Order Comment: Speci men Type: BLOOD SPECIMEN Ordering Facility: [facility] Address: [address] [place] [address] Performed By: #### 5 8410-2 #### [facility] CLIA [id number] [address] [place], [place] [address] [place] [facility] Opiates Screen Ql (U) Negative Normal Negative [facility] Comment on above: Order Comment: Speci men Type: BLOOD SPECIMEN Ordering Facility: [facility] Address: [address] [place] [address] Result Comment: Cuto ff threshold at 300 ng/mL. Performed By: #### 5 8410-2 #### [facility] CLIA [id number] [address] [place], [place] [address] [place] oxyCODONE cutoff Screen (U) [Mass/Vol] Negative Normal Negative [facility] Comment on above: Order Comment: Speci men Type: BLOOD SPECIMEN Ordering Facility: [facility] Address: [address] [place] [address] Result Comment: Cuto ff threshold at 100 ng/mL. Performed By: #### 5 8410-2 #### [facility] CLIA [id number] [address] [place] [address] Phencyclidine Ql (U) Negative Normal Negative [facility] Comment on above: Order Comment: Speci men Type: BLOOD SPECIMEN Ordering Facility: [facility] Address: [address] [place] [address] Result Comment: Cuto ff threshold at 25 ng/mL. Performed By: #### 5 8410-2 #### [facility] CLIA [id number] [address] [place] [address] [place] TROPONIN Ton 01-17-2022 Troponin T.cardiac [Mass/Vol] 0.011 ug/L Normal 0.000-0.029 [facility] Comment on above: Order Comment: Speci men Type: BLOOD SPECIMEN Ordering Facility: [facility] Address: [address] [place] [address] Performed By: #### T NT #### [id number] [address] [place] [address] [place] TSH SerPl-aCncon 01-17-2022 TSH Qn 1.870 m[IU]/L Normal 0.270-4.200 [facility] Comment on above: Order Comment: Speci men Type: BLOOD SPECIMEN Ordering Facility: [facility] Address: [address] [place] [address] Performed By: #### 5 8410-2 #### [facility] IA [id number] [address] [place] [address] Urinalysis complete panel (U )on 01-17-2022 Bacteria LM.HPF (Urine sed) [#/Area] Few Abnormal None Seen [facility] Comment on above: Order Comment: Speci men Type: BLOOD SPECIMEN Ordering Facility: [facility] Address: [address] [place] [address] Performed By: #### 5 8410-2 #### [facility] CLIA [id number] [address] [place], [place] [address] [place] Bilirubin Ql (U) Negative Normal Negative [facility] Comment on above: Order Comment: Speci men Type: BLOOD SPECIMEN Ordering Facility: [facility] Address: [address] [place] [address] Performed By: #### 5 8410-2 #### [facility] CLIA [id number] [address] [place], [place] [address] [facility] Clarity (Unsp spec) Clear Normal Clear [facility] Comment on above: Order Comment: Speci men Type: BLOOD SPECIMEN Ordering Facility: [facility] Address: [address] [place] [address] Performed By: #### 5 8410-2 #### [facility] CLIA [id number] [address] [place] [address] Color (U) Yellow Normal Yellow [facility] Comment on above: Order Comment: Speci men Type: BLOOD SPECIMEN Ordering Facility: [facility] Address: [address] [place] [address] Performed By: #### 5 8410-2 #### [facility] CLIA [id number] [facility] [place] [address] [facility] Epithelial cells LM.HPF (Urine sed) [#/Area] Few Normal [facility] Comment on above: Order Comment: Speci men Type: BLOOD SPECIMEN Ordering Facility: [facility] Address: [address] [place], [place] [address] Result Comment: Few Performed By: #### 5 8410-2 #### [facility] CLIA [id number] [address] [place], [place] [address] [facility] Glucose Test strip (U) [Mass/Vol] 3+ Abnormal Negative [facility] Comment on above: Order Comment: Speci men Type: BLOOD SPECIMEN Ordering Facility: [facility] Address: [address] [place] [address] Performed By: #### 5 8410-2 #### [facility] CLIA [id number] [address] [place] [address] [place] [facility] Hemoglobin Ql (U) 2+ Abnormal Negative [facility] Comment on above: Order Comment: Speci men Type: BLOOD SPECIMEN Ordering Facility: [facility] Address: [address] [place] [address] Performed By: #### 5 8410-2 #### [facility] CLIA [id number] [address] [place] [facility] Hyaline casts (Urine sed) [#/Area] 1-3 /LPF Abnormal 0 /LPF [facility] Comment on above: Order Comment: Speci men Type: BLOOD SPECIMEN Ordering Facility: [facility] Address: [address] [place] [address] Performed By: #### 5 8410-2 #### [facility] CLIA [id number] [address] [place] [address] [place] [facility] Ketones Ql (U) 1+ Abnormal Negative [facility] Comment on above: Order Comment: Speci men Type: BLOOD SPECIMEN Ordering Facility: [facility] Address: [address] [place] [address] Performed By: #### 5 8410-2 #### [facility] CLIA [id number] [address] [place], [place] [address] [facility] Leukocyte esterase Test strip Ql (U) Negative Normal Negative [facility] Comment on above: Order Comment: Speci men Type: BLOOD SPECIMEN Ordering Facility: [facility] Address: [address] [place] [address] Performed By: #### 5 8410-2 #### [facility] CLIA [id number] [address] [place], [place] [address] [place] Nitrite Ql (U) Negative Normal Negative [facility] Comment on above: Order Comment: Speci men Type: BLOOD SPECIMEN Ordering Facility: [facility] Address: [address] [place] [address] Performed By: #### 5 8410-2 #### [facility] [id number] [address] [place] [address] [place] pH (U) 6.0 [pH] Normal 5.0-8.0 [facility] Comment on above: Order Comment: Speci men Type: BLOOD SPECIMEN Ordering Facility: [facility] Address: [address] [place] [address] Performed By: #### 5 8410-2 #### [facility] [id number] [address] [place] [address] [place] Protein (U) [Mass/Vol] Normal [facility] Comment on above: Order Comment: Speci men Type: BLOOD SPECIMEN Ordering Facility: [facility] Address: [address] [place] [address] Result Comment: Visi ble blood causes falsely elevated results for analyte Protein. Due to this limitation, Protein will not be reported for patients whose urine contains visible blood. Performed By: #### 5 8410-2 #### [facility] [id number] [address] [place] [address] [place] RBC LM.HPF (Urine sed) [#/Area] 3-5 /HPF Abnormal 0-3 /HPF [facility] Comment on above: Order Comment: Speci men Type: BLOOD SPECIMEN Ordering Facility: [facility] Address: [address] [place] [address] Performed By: #### 5 8410-2 #### [facility] [id number] [address] [place] [address] [place] Specific gravity (U) [Rel density] >=1.030 High 1.005-1.030 [facility] Comment on above: Order Comment: Speci men Type: BLOOD SPECIMEN Ordering Facility: [facility] Address: [address] [place], [place] [id number] Performed By: #### 5 8410-2 #### [facility] IA [id number] [address] [place], [place] [address] [facility] Urobilinogen Ql (U) 0.2 EU/dL Normal 0.2-1.0 EU/dL [facility] Comment on above: Order Comment: Speci men Type: BLOOD SPECIMEN Ordering Facility: [facility] Address: [address] [place], [place] [address] Performed By: #### 5 8410-2 #### [facility] [id number] [address] [place] [address] WBC LM.HPF (Urine sed) [#/Area] 0-5 /HPF Normal 0-5 /HPF [facility] Comment on above: Order Comment: Speci men Type: BLOOD SPECIMEN Ordering Facility: [facility] Address: [address] [place] [address] Performed By: #### 5 8410-2 #### [facility] [id number] [address] [place] [address] [place] XR CHEST 1V FRONTAL PORTon 1 XR CHEST 1V FRONTAL PORT * * *Final Report* * * DATE OF EXAM: Jan 17 2022 8:10PM LUX [id number] - XR CHEST 1V FRONTAL PORT / PROCEDURE REASON: Chest pain, nonspecific * * * * Physician Interpretation * * * * EXAMINATION: CHEST RADIOGRAPH (PORTABLE SINGLE VIEW AP) Exam Date/Time: 01/17/2022 8:10 PM CLINICAL HISTORY: Chest pain, nonspecific MQ: XCPR_5 Comparison: 04/16/2021 RESULT: Lines, tubes, and devices: None. Lungs and pleura: The lungs are clear except for small granuloma in the left upper lung. No evidence of infiltrate. The pleural margins appear unremarkable. Cardiomediastinal silhouette: Stable cardiomediastinal silhouette with a small calcified lymph node in the AP window. Other: The visualized bony thorax appears unremarkable. IMPRESSION: Stable exam with no evidence of acute disease. Field Administrative Assistant: ROBERTA Transcribe Date/Time: Jan 17 2022 8:15P Dictated by : LAZARO SENA MD This examination was interpreted and the report reviewed and electronically signed by: LAZARO SENA MD on Jan 17 2022 8:15PM EST [id number] Normal [facility] GLUCOSE, BLOOD (POC)on 01-03 Glucose [Mass/Vol] 290 mg/dL Abnormal 74 - 99 mg/dL [facility] HEMOGLOBIN A1C (POC)on 01-03 HbA1c (Bld) [Mass fraction] 13.4 % Abnormal 4.2 - 5.6 % [facility] GLUCOSE, BLOOD (POC)on 11-05 Glucose [Mass/Vol] 330 mg/dL Abnormal 74 - 99 mg/dL [facility] HEMOGLOBIN A1C (POC)on 11-05 HbA1c (Bld) [Mass fraction] 11.3 % Abnormal 4.2 - 5.6 % [facility] GLUCOSE, BLOOD (POC)on 10-05 Glucose [Mass/Vol] 184 mg/dL Abnormal 74 - 99 mg/dL [facility] HEMOGLOBIN A1C (POC)on 10-05 HbA1c (Bld) [Mass fraction] 11.5 % Abnormal 4.2 - 5.6 % [facility] GLUCOSE, BLOOD (POC)on 09-20 Glucose [Mass/Vol] 197 mg/dL Abnormal 74 - 99 mg/dL [facility] HEMOGLOBIN A1C (POC)on 09-20 HbA1c (Bld) [Mass fraction] 12.5 % Abnormal 4.2 - 5.6 % [facility] GLUCOSE, BLOOD (POC)on 08-11 Glucose [Mass/Vol] 434 mg/dL Abnormal 74 - 99 mg/dL [facility] HEMOGLOBIN A1C (POC)on 08-11 HbA1c (Bld) [Mass fraction] 12.7 % Abnormal 4.2 - 5.6 % [facility] MRI PELVIS WO/W IVCONon 09-[address] [facility] [address] ABD/PEL W IVCONon 021 CT ABD/PEL W IVCON Final Report DATE OF EXAM: Jun 26 2020 3:38PM [facility] 0530 - CT ABD/PEL W IVCON / PROCEDURE REASON: multiple diagnoses Physician Interpretation EXAMINATION: CT ABDOMEN AND PELVIS WITH IV CONTRAST CLINICAL HISTORY: Obesity, Class II, BMI 35-39.9 Screening for colon cancer c/o abd pain w/ nausea. no surg or ca TECHNIQUE: CT of the abdomen and pelvis was performed using standard technique, scanning from just above the dome of the diaphragm to the symphysis pubis. MQ: CTAP_3 Contrast: IV: 150 ml of Omnipaque 300 Oral: 900 ml of READI-CAT 2 CT Radiation dose: Integrated Dose-length product (DLP) for this visit = [address] Dose Reduction Employed: Automated exposure control (AEC) COMPARISON: None. RESULT: Liver: Mild fatty infiltration. No focal lesion. Biliary: No bile duct dilation. Gallbladder is unremarkable. Spleen: Multiple calcified splenic granulomata. No splenomegaly. Pancreas: No mass or duct dilation. Adrenals: No mass. Kidneys: Right: Unremarkable. Left: 12 mm hypodensity lateral midpole. Too small to further characterize. GI tract: No dilation or wall thickening. Scattered colonic diverticula. Asymmetric thickening of the rectal wall along the right side particularly seen on 2:155 through 163. Lymph nodes: No abdominal or pelvic lymphadenopathy. Mesentery/Peritoneum: No ascites or mass. Retroperitoneum: No significant additional findings. Vasculature: The celiac axis and SMA are patent. The portal vein and branches, splenic vein, SMV, and hepatic veins are patent. Pelvis: No additional findings. No other mass or fluid collection. Bones/Soft Tissues: Degenerative disc disease noted at L4-5 and L5-S1. Lower thorax: No significant additional findings. Can Filling Room Sweeper (topogram) images: No significant additional findings. IMPRESSION: Asymmetric wall thickening of the lower rectum raising concern for possible rectal mass. Correlation with endoscopy is recommended. Scattered colonic diverticula without radiographic evidence of acute diverticulitis. Mild fatty infiltration in the liver. Hypodensity left kidney. Possibly cyst. This could be followed up with ultrasound. ACTIONABLE RESULT: FOLLOW-UP Acuity: Actionable Findings: Digestive Tract Routing Code: GI_1 Recommendation: Unlisted Recommendation (see report) Time Frame: as soon as possible, when the patient's clinical state allows. COMMUNICATION: Results will be communicated with the ordering provider via [employer] staff message or phone message by [employer] within 2 business days of report finalization. Algorithms for management of incidental imaging findings can be found on the [facility] Intranet Sharepoint site at: [email or web address] [email or web address] Field Administrative Assistant: [facility]OSPITAL[facility]y Transcribe Date/Time: Jun 29 2020 1:50P Dictated by : LUIS BADILLO MD This examination was interpreted and the report reviewed and electronically signed by: LUIS BADILLO MD on Jun 29 2020 2:03PM EST ACTIONABLE Normal [facility] Otheron 05-14-2020 [facility] XR SHLDR >/=3V AP/KRISHNA AP/OTH R LTon 05-14-2020 XR SHLDR >/=3V AP/KRISHNA AP/OTHR LT Final Report DATE OF EXAM: May 14 2020 2:56PM AWX [id number] - XR SHLDR >/=3V AP/KRISHNA AP/OTHR LT / PROCEDURE REASON: Left shoulder pain, unspecified chronicity Physician Interpretation EXAM TITLE: XR SHLDR >/=3V AP/KRISHNA AP/OTHR LT DATE: 05/14/2020 3:04 PM INDICATION: Left shoulder pain secondary to a fall COMPARISON: None. FINDINGS: There is mild degenerative arthritis at the acromioclavicular joint. There is no fracture or dislocation. Soft tissues are within normal limits. IMPRESSION: Mild osteoarthritis of the acromioclavicular joint. Field Administrative Assistant: [facility] Transcribe Date/Time: May 14 2020 3:04P Dictated by : JA SUN MD This examination was interpreted and the report reviewed and electronically signed by: AJ SUN MD on May 14 2020 3:05PM EST Normal [facility] Metabolic Panelon 04-27-2020 Glucose [Mass/Vol] 230 mg/dL Abnormal 65 - 100 mg/dL [facility] [facility] 04-27-2020 Quality Check Yes [facility] Otheron 02-17-2020 [facility] XR LUMBAR 3V AP/LAT/L5-S1on 02-17-2020 XR LUMBAR 3V AP/LAT/L5-S1 Final Report DATE OF EXAM: Feb 17 2020 1:47PM [id number] - XR LUMBAR 3V AP/LAT/L5-S1 / PROCEDURE REASON: multiple diagnoses Physician Interpretation EXAMINATION: XR LUMBAR 3V AP/LAT/L5-S1 Clinical History: Chronic bilateral low back pain with sciatica, sciatica laterality unspecified Chronic bilateral low back pain with sciatica, sciatica laterality unspecified Comparison: None RESULT: Moderate multilevel degenerative changes of the lumbar spine. No significant spondylolisthesis. Vertebral body heights are within normal limits. The sacroiliac joints are symmetric. No radiographic evidence of acute osseous abnormalities. IMPRESSION: 1. No radiographic evidence of acute osseous abnormalities. 2. Moderate multilevel degenerative changes. Field Administrative Assistant: ROBERTA Transcribe Date/Time: Feb 17 2020 2:33P Dictated by : AKIN DUDLEY MD This examination was interpreted and the report reviewed and electronically signed by: AKIN DUDLEY MD on Feb 17 2020 2:36PM EST Normal [facility] No Panel Information [facility] Vital Signs Date Time Vital Sign Value Performing Clinician Faci lity 07-10-2024 14:11040 Body height 172.7 cm Jose Dudley MD Work Phone: [facility] 07-10-2024 14:11-0400 Body mass index (BMI) [Ratio] 38.62 kg/m2 Jose Dudley MD Work Phone: [facility] 07-10-2024 14:11-0400 Body temperature 97.9 [degF] Jose Dudley MD Work Phone: [facility] 07-10-2024 14:11040 Body weight 115.21 kg Jose Dudley MD Work Phone: [facility] 07-10-2024 14:11-0400 Diastolic blood pressure 91 mm[Hg] Jose Dudley MD Work Phone: [facility] 07-10-2024 14:110400 Heart rate 84 /min Jose Dudley MD Work Phone: [facility] 07-10-2024 14:11-0400 SaO2% (BldA) [Mass fraction] 98 % Jose Dudley MD Work Phone: [facility] 07-10-2024 14:11-0400 Systolic blood pressure 168 mm[Hg] Jose Dudley MD Work Phone: [facility] 05-13-2024 12:02-0500 Diastolic blood pressure 91 mm[Hg] Artem Ahmadi MD Work Phone: [facility] 05-13-2024 12:02-0500 Heart rate 76 /min Artem Ahmadi MD Work Phone: [facility] 05-13-2024 12:02-0500 Respiratory rate 14 /min Artem Ahmadi MD Work Phone: [facility] 05-13-2024 12:02-0500 SaO2% (BldA) [Mass fraction] 97 % Artem Ahmadi MD Work Phone: [facility] 05-13-2024 12:02-0500 Systolic blood pressure 179 mm[Hg] Artem Ahmadi MD Work Phone: [facility] 05-13-2024 11:46-0500 Body temperature 97.39 [degF] Artem Ahmadi MD Work Phone: [facility] 01-24-2024 13:45-0400 Body height 172.7 cm Jose Dudley MD Work Phone: [facility] 01-24-2024 13:45-0400 Body mass index (BMI) [Ratio] 35.58 kg/m2 Jose Dudley MD Work Phone: [facility] 01-24-2024 13:45-0400 Body weight 106.14 kg Jose Dudley MD Work Phone: [facility] 01-24-2024 13:45-0400 Diastolic blood pressure 98 mm[Hg] Jose Dudley MD Work Phone: [facility] 01-24-2024 13:45-0400 Heart rate 75 /min Jose Dudley MD Work Phone: [facility] 01-24-2024 13:45-0400 Systolic blood pressure 192 mm[Hg] Jose Dudley MD Work Phone: [facility] 11-20-2023 10:53-0400 Diastolic blood pressure 74 mm[Hg] Noé Rufener PT Work Phone: [facility] 11-20-2023 10:53-0400 Heart rate 80 /min Noé Rufener PT Work Phone: [facility] 11-20-2023 10:53-0400 Respiratory rate 16 /min Noé Rufener PT Work Phone: [facility] 11-20-2023 10:53-0400 SaO2% (BldA) [Mass fraction] 98 % Noé Rufener PT Work Phone: [facility] 11-20-2023 10:53-0400 Systolic blood pressure 134 mm[Hg] Noé Rufener PT Work Phone: [facility] 11-20-2023 10:22-0400 Body temperature 98.4 [degF] Noé Rufener PT Work Phone: [facility] 11-16-2023 14:25-0400 Body temperature 98.2 [degF] Eda Bright RN Work Phone: [facility] 11-16-2023 14:25-0400 Diastolic blood pressure 80 mm[Hg] Eda Bright RN Work Phone: [facility] 11-16-2023 14:25-0400 Heart rate 80 /min Eda Bright RN Work Phone: [facility] 11-16-2023 14:25-0400 Respiratory rate 18 /min Eda Bright RN Work Phone: [facility] 11-16-2023 14:25-0400 SaO2% (BldA) [Mass fraction] 97 % Eda Bright RN Work Phone: [facility] 11-16-2023 14:25-0400 Systolic blood pressure 136 mm[Hg] Eda Bright RN Work Phone: [facility] 11-14-2023 10:30-0400 Diastolic blood pressure 74 mm[Hg] Prinston Hairston HOT OILER Work Phone: [facility] Comment on above: exertion 11-14-2023 10:30-0400 Heart rate 83 /min Prinston Hairston HOT O[employer]ER Work Phone: [facility] 11-14-2023 10:30-0400 Respiratory rate 19 /min Prinston Hairston HOT O[employer]ER Work Phone: [facility] 11-14-2023 10:30-0400 SaO2% (BldA) [Mass fraction] 97 % Prinston Hairston HOT O[employer]ER Work Phone: [facility] 11-14-2023 10:30-0400 Systolic blood pressure 140 mm[Hg] Prinston Hairston HOT O[employer]ER Work Phone: [facility] Comment on above: exertion 11-14-2023 09:57-0400 Body temperature 97.9 [degF] Prinston Hairston HOT O[employer]ER Work Phone: [facility] 11-13-2023 09:22-0400 Body temperature 97.9 [degF] Keyla Fernanda OT/L Work Phone: [facility] 11-13-2023 09:22-0400 Diastolic blood pressure 82 mm[Hg] Keyla Fernanda OT/L Work Phone: [facility] 11-13-2023 09:22-0400 Heart rate 79 /min Keyla Fernanda OT/L Work Phone: [facility] 11-13-2023 09:22-0400 Respiratory rate 18 /min Keyla Fernanda OT/L Work Phone: [facility] 11-13-2023 09:22-0400 SaO2% (BldA) [Mass fraction] 98 % Keyla Fernanda OT/L Work Phone: [facility] 11-13-2023 09:22-0400 Systolic blood pressure 140 mm[Hg] Keyla Fernanda OT/L Work Phone: [facility] 11-10-2023 15:55-0400 Body temperature 98.1 [degF] Eda Bright RN Work Phone: [facility] 11-10-2023 15:55-0400 Diastolic blood pressure 78 mm[Hg] Eda Bright RN Work Phone: [facility] 11-10-2023 15:55-0400 Heart rate 80 /min Eda Bright RN Work Phone: [facility] 11-10-2023 15:55-0400 Respiratory rate 20 /min Eda Bright RN Work Phone: [facility] 11-10-2023 15:55-0400 SaO2% (BldA) [Mass fraction] 98 % Eda Bright RN Work Phone: [facility] 11-10-2023 15:55-0400 Systolic blood pressure 136 mm[Hg] Eda Bright RN Work Phone: [facility] 11-09-2023 09:09-0400 Diastolic blood pressure 84 mm[Hg] Prinston Hairston HOT O[employer]ER Work Phone: [facility] Comment on above: exertion 11-09-2023 09:09-0400 Heart rate 83 /min Prinston Hairston HOT O[employer]ER Work Phone: [facility] 11-09-2023 09:09-0400 Respiratory rate 16 /min Prinston Hairston HOT O[employer]ER Work Phone: [facility] 11-09-2023 09:09-0400 SaO2% (BldA) [Mass fraction] 98 % Prinston Hairston HOT O[employer]ER Work Phone: [facility] 11-09-2023 09:09-0400 Systolic blood pressure 132 mm[Hg] Prinston Hairston HOT O[employer]ER Work Phone: [facility] Comment on above: exertion 11-09-2023 08:46-0400 Body temperature 98.01 [degF] Prinlatrell Hairston HOT OILER Work Phone: [facility] 11-07-2023 14:46-0400 Diastolic blood pressure 76 mm[Hg] Prinston Hairston H[employer] O[employer]ER Work Phone: [facility] Comment on above: exertion 11-07-2023 14:46-0400 Heart rate 84 /min Prinston Hairston HOT O[employer]ER Work Phone: [facility] 11-07-2023 14:46-0400 Respiratory rate 18 /min Prinston Hairston HOT O[employer]ER Work Phone: [facility] 11-07-2023 14:46-0400 SaO2% (BldA) [Mass fraction] 98 % Prinlatrell Hairston HOT O[employer]ER Work Phone: [facility] 11-07-2023 14:46-0400 Systolic blood pressure 140 mm[Hg] Prinlatrell Hairston HOT OILER Work Phone: [facility] Comment on above: exertion 11-07-2023 14:15-0400 Body temperature 98.49 [degF] Prinlatrell Hairston HOT OILER Work Phone: [facility] 11-06-2023 09:10-0400 Body temperature 98.2 [degF] Keyla Fernanda OT/L Work Phone: [facility] 11-06-2023 09:10-0400 Diastolic blood pressure 70 mm[Hg] Keyla Fernanda OT/L Work Phone: [facility] 11-06-2023 09:10-0400 Heart rate 77 /min Keyla Fernanda OT/L Work Phone: [facility] 11-06-2023 09:10-0400 Respiratory rate 18 /min Keyla Fernanda OT/L Work Phone: [facility] 11-06-2023 09:10-0400 SaO2% (BldA) [Mass fraction] 97 % Keyla Fernanda OT/L Work Phone: [facility] 11-06-2023 09:10-0400 Systolic blood pressure 128 mm[Hg] Keyla Fernanda OT/L Work Phone: [facility] 11-03-2023 15:53-0400 Body temperature 97.39 [degF] Eda Bright RN Work Phone: [facility] 11-03-2023 15:53-0400 Diastolic blood pressure 78 mm[Hg] Eda Bright RN Work Phone: [facility] 11-03-2023 15:53-0400 Heart rate 68 /min Eda Bright RN Work Phone: [facility] 11-03-2023 15:53-0400 Respiratory rate 20 /min Eda Bright RN Work Phone: [facility] 11-03-2023 15:53-0400 SaO2% (BldA) [Mass fraction] 98 % Eda Bright RN Work Phone: [facility] 11-03-2023 15:53-0400 Systolic blood pressure 138 mm[Hg] Eda Bright RN Work Phone: [facility] 11-02-2023 15:42-0400 Diastolic blood pressure 76 mm[Hg] Prinston Hairston HOT OILER Work Phone: [facility] 11-02-2023 15:42-0400 Heart rate 70 /min Prinston Hairston HOT O[employer]ER Work Phone: [facility] 11-02-2023 15:42-0400 Respiratory rate 16 /min Prinston Hairston HOT O[employer]ER Work Phone: [facility] 11-02-2023 15:42-0400 SaO2% (BldA) [Mass fraction] 98 % Prinston Hairston HOT O[employer]ER Work Phone: [facility] 11-02-2023 15:42-0400 Systolic blood pressure 136 mm[Hg] Prinston Hairston HOT O[employer]ER Work Phone: [facility] 11-02-2023 15:15-0400 Body temperature 97.7 [degF] Renea Hairston HOT OILER Work Phone: [facility] 10-31-2023 15:25-0400 Body temperature 97.39 [degF] Eda Bright RN Work Phone: [facility] 10-31-2023 15:25-0400 Diastolic blood pressure 78 mm[Hg] Eda Bright RN Work Phone: [facility] 10-31-2023 15:25-0400 Heart rate 76 /min Eda Bright RN Work Phone: [facility] 10-31-2023 15:25-0400 Respiratory rate 18 /min Eda Bright RN Work Phone: [facility] 10-31-2023 15:25-0400 SaO2% (BldA) [Mass fraction] 98 % Eda Bright RN Work Phone: [facility] 10-31-2023 15:25-0400 Systolic blood pressure 144 mm[Hg] Eda Bright RN Work Phone: [facility] 10-30-2023 09:20-0400 Body temperature 98.4 [degF] Keyla Fernanda OT/L Work Phone: [facility] 10-30-2023 09:20-0400 Diastolic blood pressure 78 mm[Hg] Keyla Fernanda OT/L Work Phone: [facility] 10-30-2023 09:20-0400 Heart rate 76 /min Keyla Fernanda OT/L Work Phone: [facility] 10-30-2023 09:20-0400 Respiratory rate 18 /min Keyla Fernanda OT/L Work Phone: [facility] 10-30-2023 09:20-0400 SaO2% (BldA) [Mass fraction] 97 % Keyla Fernanda OT/L Work Phone: [facility] 10-30-2023 09:20-0400 Systolic blood pressure 132 mm[Hg] Keyla Fernanda OT/L Work Phone: [facility] 10-28-2023 12:58-0400 Diastolic blood pressure 79 mm[Hg] Zohaib Giffels PT Work Phone: [facility] 10-28-2023 12:58-0400 Heart rate 80 /min Zohaib Giffels PT Work Phone: [facility] 10-28-2023 12:58-0400 Respiratory rate 18 /min Zohaib Giffels PT Work Phone: [facility] 10-28-2023 12:58-0400 SaO2% (BldA) [Mass fraction] 98 % Zohaib Giffels PT Work Phone: [facility] 10-28-2023 12:58-0400 Systolic blood pressure 141 mm[Hg] Zohaib Giffels PT Work Phone: [facility] 10-28-2023 12:33-0400 Body temperature 98.29 [degF] Zohaib Giffels PT Work Phone: [facility] 10-27-2023 10:17-0400 Body temperature 98.4 [degF] Keyla Fernanda OT/L Work Phone: [facility] 10-27-2023 10:17-0400 Diastolic blood pressure 64 mm[Hg] Keyla Fernanda OT/L Work Phone: [facility] 10-27-2023 10:17-0400 Heart rate 83 /min Keyla Fernanda OT/L Work Phone: [facility] 10-27-2023 10:17-0400 Respiratory rate 18 /min Keyla Fernanda OT/L Work Phone: [facility] 10-27-2023 10:17-0400 SaO2% (BldA) [Mass fraction] 99 % Keyla Fernanda OT/L Work Phone: [facility] 10-27-2023 10:17-0400 Systolic blood pressure 148 mm[Hg] Keyla Fernanda OT/L Work Phone: [facility] 10-26-2023 09:59-0400 Body temperature 98.01 [degF] Eda Bright RN Work Phone: [facility] 10-26-2023 09:59-0400 Diastolic blood pressure 74 mm[Hg] Eda Bright RN Work Phone: [facility] 10-26-2023 09:59-0400 Heart rate 76 /min Eda Bright RN Work Phone: [facility] 10-26-2023 09:59-0400 Respiratory rate 18 /min Eda Bright RN Work Phone: [facility] 10-26-2023 09:59-0400 SaO2% (BldA) [Mass fraction] 98 % Eda Bright RN Work Phone: [facility] 10-26-2023 09:59-0400 Systolic blood pressure 136 mm[Hg] Eda Bright RN Work Phone: [facility] 10-22-2023 11:58-0400 Body height 172.7 cm Karla Worley RN Work Phone: [facility] 10-22-2023 11:58-0400 Body mass index (BMI) [Ratio] 37.89 kg/m2 Karla Worley RN Work Phone: [facility] 10-22-2023 11:58-0400 Body temperature 97.2 [degF] Karla Worley RN Work Phone: [facility] 10-22-2023 11:58-0400 Body weight 113.04 kg Karla Worley RN Work Phone: [facility] 10-22-2023 11:58-0400 Diastolic blood pressure 86 mm[Hg] Karla Worley RN Work Phone: [facility] 10-22-2023 11:58-0400 Heart rate 84 /min Karla Worley RN Work Phone: [facility] 10-22-2023 11:58-0400 Respiratory rate 16 /min Karla Worley RN Work Phone: [facility] 10-22-2023 11:58-0400 SaO2% (BldA) [Mass fraction] 98 % Karla Worley RN Work Phone: [facility] 10-22-2023 11:58-0400 Systolic blood pressure 144 mm[Hg] Karla Worley RN Work Phone: [facility] 07-12-2023 14:16-0400 Body height 177.8 cm Noé Kennedy MD Work Phone: [facility] 07-12-2023 14:16-0400 Body weight 108.86 kg Noé Kennedy MD Work Phone: [facility] 05-23-2023 11:08-0500 Body height 177.8 cm Mónica Peterson MD Work Phone: [facility] 05-23-2023 11:08-0500 Body weight 109.2 kg Mónica Peterson MD Work Phone: [facility] 05-23-2023 11:08-0500 Diastolic blood pressure 109 mm[Hg] Mónica Peterson MD Work Phone: [facility] 05-23-2023 11:08-0500 Heart rate 97 /min Mónica Peterson MD Work Phone: [facility] 05-23-2023 11:08-0500 Respiratory rate 16 /min Mónica Peterson MD Work Phone: [facility] 05-23-2023 11:08-0500 SaO2% (BldA) [Mass fraction] 99 % Mónica Peterson MD Work Phone: [facility] 05-23-2023 11:08-0500 Systolic blood pressure 195 mm[Hg] Mónica Peterson MD Work Phone: [facility] 01-23-2023 14:18-0400 Body height 177.8 cm Mark Godinez MD Work Phone: [facility] 01-23-2023 14:18-0400 Body weight 113.85 kg Mark Godinez MD Work Phone: [facility] 01-23-2023 14:18-0400 Respiratory rate 18 /min Mark Godinez MD Work Phone: [facility] 12-23-2022 15:46-0400 Body height 177.8 cm Belgica Vega DO Work Phone: [facility] 12-23-2022 15:46-0400 Body weight 114.76 kg Belgica Vega DO Work Phone: [facility] 12-23-2022 15:46-0400 Diastolic blood pressure 91 mm[Hg] Belgica Vega DO Work Phone: [facility] 12-23-2022 15:46-0400 Heart rate 91 /min Belgica Vega DO Work Phone: [facility] 12-23-2022 15:46-0400 Systolic blood pressure 153 mm[Hg] Belgica Vega DO Work Phone: [facility] 11-04-2022 15:04-0400 Body height 177.8 cm Belgica Vega DO Work Phone: [facility] 11-04-2022 15:04-0400 Body weight 117.48 kg Belgica Vega DO Work Phone: [facility] 11-04-2022 15:04-0400 Diastolic blood pressure 82 mm[Hg] Belgica Vega DO Work Phone: [facility] 11-04-2022 15:04-0400 Heart rate 99 /min Belgica Vega DO Work Phone: [facility] 11-04-2022 15:04-0400 Systolic blood pressure 142 mm[Hg] Belgica Vega DO Work Phone: [facility] 11-02-2022 14:18-0400 Body height 177.8 cm Noé Kennedy MD Work Phone: [facility] 11-02-2022 14:18-0400 Body weight 115.67 kg Noé Kennedy MD Work Phone: [facility] 11-02-2022 14:18-0400 Heart rate 90 /min Noé Kennedy MD Work Phone: [facility] 11-02-2022 14:18-0400 SaO2% (BldA) [Mass fraction] 96 % Noé Kennedy MD Work Phone: [facility] 10-13-2022 09:29-0400 Body height 177.8 cm Sukumar Toney MD Work Phone: [facility] 10-13-2022 09:29-0400 Body weight 115.67 kg Sukumar Toney MD Work Phone: [facility] 10-13-2022 09:29-0400 Diastolic blood pressure 93 mm[Hg] Sukumar Toney MD Work Phone: [facility] 10-13-2022 09:29-0400 Heart rate 90 /min Sukumar Toney MD Work Phone: [facility] 10-13-2022 09:29-0400 SaO2% (BldA) [Mass fraction] 96 % Sukumar Toney MD Work Phone: [facility] 10-13-2022 09:29-0400 Systolic blood pressure 165 mm[Hg] Sukumar Toney MD Work Phone: [facility] 10-10-2022 13:32-0400 Body height 177.8 cm Mark Godinez MD Work Phone: [facility] 10-10-2022 13:32-0400 Body weight 115.21 kg Mark Godinez MD Work Phone: [facility] 10-10-2022 13:32-0400 Respiratory rate 16 /min Mark Godinez MD Work Phone: [facility] 09-28-2022 11:05-0400 Body height 177.8 cm Belgica Vega DO Work Phone: [facility] 09-28-2022 11:05-0400 Body weight 115.21 kg Belgica Vega DO Work Phone: [facility] 09-28-2022 11:05-0400 Diastolic blood pressure 81 mm[Hg] Belgica Vega DO Work Phone: [facility] 09-28-2022 11:05-0400 Heart rate 101 /min Belgica Vega DO Work Phone: [facility] 09-28-2022 11:05-0400 Systolic blood pressure 135 mm[Hg] Belgica Vega DO Work Phone: [facility] 09-23-2022 15:27-0400 Body height 177.8 cm Binh Peiffer DO Work Phone: [facility] 09-23-2022 15:27-0400 Body weight 115.21 kg Binh Peiffer DO Work Phone: [facility] 09-23-2022 15:27-0400 Respiratory rate 16 /min Binh Peiffer DO Work Phone: [facility] 09-02-2022 13:34-0400 Body height 177.8 cm Binh Peiffer DO Work Phone: [facility] 09-02-2022 13:34-0400 Body weight 115.21 kg Binh Peiffer DO Work Phone: [facility] 09-02-2022 13:34-0400 Respiratory rate 20 /min Binh Peiffer DO Work Phone: [facility] 08-12-2022 15:35-0400 Body height 177.8 cm Belgica Vega DO Work Phone: [facility] 08-12-2022 15:35-0400 Body weight 115.21 kg Belgica Vega DO Work Phone: [facility] 08-12-2022 15:35-0400 Diastolic blood pressure 92 mm[Hg] Belgica Vega DO Work Phone: [facility] 08-12-2022 15:35-0400 Heart rate 98 /min Belgica Vega DO Work Phone: [facility] 08-12-2022 15:35-0400 Systolic blood pressure 156 mm[Hg] Belgica Vega DO Work Phone: [facility] 07-01-2022 12:59-0400 Body height 177.8 cm Binh Lake DO Work Phone: [facility] 07-01-2022 12:59-0400 Body weight 117.94 kg Binh Nogueiraffer DO Work Phone: [facility] 07-01-2022 12:59-0400 Respiratory rate 18 /min Binh Nogueiraffer DO Work Phone: [facility] 06-29-2022 16:59-0400 Diastolic blood pressure 84 mm[Hg] Belgica Vega DO Work Phone: [facility] 06-29-2022 16:59-0400 Systolic blood pressure 144 mm[Hg] Belgica Vega DO Work Phone: [facility] 06-29-2022 15:58-0400 Body height 177.8 cm Belgica Vega DO Work Phone: [facility] 06-29-2022 15:58-0400 Body weight 117.48 kg Belgica Vega DO Work Phone: [facility] 06-29-2022 15:58-0400 Heart rate 92 /min Belgica Vega DO Work Phone: [facility] 06-01-2022 10:44-0500 Body height 177.8 cm Rory Mendoza MD Work Phone: [facility] 06-01-2022 10:44-0500 Body temperature 97 [degF] Rory Mendoza MD Work Phone: [facility] 06-01-2022 10:44-0500 Body weight 116.12 kg Rory Mendoza MD Work Phone: [facility] 06-01-2022 10:44-0500 Diastolic blood pressure 74 mm[Hg] Rroy Mendoza MD Work Phone: [facility] 06-01-2022 10:44-0500 Heart rate 91 /min Rory Mendoza MD Work Phone: [facility] 06-01-2022 10:44-0500 SaO2% (BldA) [Mass fraction] 96 % Rory Mendoza MD Work Phone: [facility] 06-01-2022 10:44-0500 Systolic blood pressure 153 mm[Hg] Rory Mendoza MD Work Phone: [facility] 05-18-2022 15:02-0500 Body height 177.8 cm Belgica Vega DO Work Phone: [facility] 05-18-2022 15:02-0500 Body weight 116.12 kg Belgica Vega DO Work Phone: [facility] 05-18-2022 15:02-0500 Diastolic blood pressure 85 mm[Hg] Belgica Vega DO Work Phone: [facility] 05-18-2022 15:02-0500 Heart rate 101 /min Belgica Vega DO Work Phone: [facility] 05-18-2022 15:02-0500 Systolic blood pressure 134 mm[Hg] Belgica Vega DO Work Phone: [facility] 05-04-2022 13:59-0500 Body height 177.8 cm Noé Kennedy MD Work Phone: [facility] 05-04-2022 13:59-0500 Body weight 116.12 kg Noé Kennedy MD Work Phone: [facility] 04-13-2022 16:46-0500 Diastolic blood pressure 90 mm[Hg] Belgica Vega DO Work Phone: [facility] 04-13-2022 16:46-0500 Heart rate 97 /min Belgica Vega DO Work Phone: [facility] 04-13-2022 16:46-0500 Systolic blood pressure 155 mm[Hg] Belgica Vega DO Work Phone: [facility] 04-13-2022 15:49-0500 Body height 177.8 cm Belgica Vega DO Work Phone: [facility] 04-13-2022 15:49-0500 Body weight 116.12 kg Belgicaluca Vega DO Work Phone: [facility] 03-01-2022 15:39-0500 Diastolic blood pressure 86 mm[Hg] Belgica Vega DO Work Phone: [facility] 03-01-2022 15:39-0500 Systolic blood pressure 146 mm[Hg] Belgica Vega DO Work Phone: [facility] 03-01-2022 14:51-0500 Body height 177.8 cm Belgica Vega DO Work Phone: [facility] 03-01-2022 14:51-0500 Body weight 115.67 kg Belgica Vega DO Work Phone: [facility] 03-01-2022 14:51-0500 Heart rate 96 /min Belgica Vega DO Work Phone: [facility] 01-17-2022 14:18-0400 Body height 177.8 cm Billy Cody MD Work Phone: [facility] 01-17-2022 14:18-0400 Body weight 115.67 kg Billy Cody MD Work Phone: [facility] 01-17-2022 14:18-0400 Diastolic blood pressure 85 mm[Hg] Billy Cody MD Work Phone: [facility] 01-17-2022 14:18-0400 Heart rate 90 /min Billy Cody MD Work Phone: [facility] 01-17-2022 14:18-0400 SaO2% (BldA) [Mass fraction] 95 % Billy Cody MD Work Phone: [facility] 01-17-2022 14:18-0400 Systolic blood pressure 165 mm[Hg] Billy Cody MD Work Phone: [facility] 01-03-2022 15:20-0400 Body height 177.8 cm Belgica Vega DO Work Phone: [facility] 01-03-2022 15:20-0400 Body weight 115.67 kg Belgica Vega DO Work Phone: [facility] 01-03-2022 15:20-0400 Diastolic blood pressure 85 mm[Hg] Belgica Vega DO Work Phone: [facility] 01-03-2022 15:20-0400 Heart rate 94 /min Belgica Vega DO Work Phone: [facility] 01-03-2022 15:20-0400 Systolic blood pressure 141 mm[Hg] Belgica Vega DO Work Phone: [facility] 11-05-2021 17:01-0400 Diastolic blood pressure 94 mm[Hg] Belgica Vega DO Work Phone: [facility] 11-05-2021 17:01-0400 Heart rate 85 /min Belgica Vega DO Work Phone: [facility] 11-05-2021 17:01-0400 Systolic blood pressure 160 mm[Hg] Belgica Vega DO Work Phone: [facility] 11-05-2021 16:12-0400 Body height 177.8 cm Belgica Vega DO Work Phone: [facility] 11-05-2021 16:12-0400 Body weight 122.02 kg Belgica Vega DO Work Phone: [facility] 10-27-2021 13:41-0400 Body height 177.8 cm Noé Kennedy MD Work Phone: [facility] 10-27-2021 13:41-0400 Body weight 122.02 kg Noé Kennedy MD Work Phone: [facility] 10-05-2021 15:06-0400 Body height 177.8 cm Belgica Vega DO Work Phone: [facility] 10-05-2021 15:06-0400 Body temperature 98.2 [degF] Belgica Vega DO Work Phone: [facility] 10-05-2021 15:06-0400 Body weight 117.94 kg Belgica Vega DO Work Phone: [facility] 10-05-2021 15:06-0400 Diastolic blood pressure 80 mm[Hg] Belgica Vega DO Work Phone: [facility] 10-05-2021 15:06-0400 Heart rate 78 /min Belgica Je DO Work Phone: [facility] 10-05-2021 15:06-0400 SaO2% (BldA) [Mass fraction] 99 % Belgica Je DO Work Phone: [facility] 10-05-2021 15:06-0400 Systolic blood pressure 130 mm[Hg] Belgica Vega DO Work Phone: [facility] 09-20-2021 13:20-0400 Body height 177.8 cm Belgica Je DO Work Phone: [facility] 09-20-2021 13:20-0400 Body temperature 98.29 [degF] Belgica Je DO Work Phone: [facility] 09-20-2021 13:20-0400 Body weight 117.94 kg Belgica Je DO Work Phone: [facility] 09-20-2021 13:20-0400 Diastolic blood pressure 84 mm[Hg] Belgica Je DO Work Phone: [facility] 09-20-2021 13:20-0400 Heart rate 99 /min Belgica Je DO Work Phone: [facility] 09-20-2021 13:20-0400 Systolic blood pressure 143 mm[Hg] Belgica Vega DO Work Phone: [facility] 08-11-2021 15:56-0400 Body height 177.8 cm Belgica Je DO Work Phone: [facility] 08-11-2021 15:56-0400 Body temperature 98.29 [degF] Belgica Vega DO Work Phone: [facility] 08-11-2021 15:56-0400 Body weight 122.47 kg Belgica Vega DO Work Phone: [facility] 08-11-2021 15:56-0400 Diastolic blood pressure 79 mm[Hg] Belgica Vega DO Work Phone: [facility] 08-11-2021 15:56-0400 Heart rate 94 /min Belgica Vega DO Work Phone: [facility] 08-11-2021 15:56-0400 Systolic blood pressure 127 mm[Hg] Belgica Vega DO Work Phone: [facility] 05-28-2020 16:04-0500 Body Temperature 97.59 [degF] Belgica [facility] 05-28-2020 16:04-0500 [facility] 16:04-0500 [facility] 177[facility]8 [facility] 05-28-2020 16:04-0500 Pulse [facility]xim[facility] 98 % [facility] 05-28-2020 16:04-0500 Respiratory Rate 16 /min Belgica [facility] 04-27-2020 16:37-0500 BP Diastolic 90 mm[Hg] Belgica [facility] 04-27-2020 16:37-0500 BP Systolic 155 mm[Hg] [facility] 04-27-2020 16:37-0500 Pulse (Heart Rate) 86 /min Belgicaluca Herrera [facility] 04-27-2020 15:54-0500 Body Temperature 98.6 [degF] Belgica Herrera [facility] 04-27-2020 15:54-0500 Body weight 123.11 kg Belgica [facility] 04-27-2020 15:54-0500 Height 178.5 cm [facility] 04-27-2020 15:54-0500 Pulse [facility]ximetry 98 % [facility] 04-27-2020 15:54-0500 Respiratory Rate 18 /min Belgica [facility] 03-23-2020 15:44-0500 Body Temperature 98.01 [degF] [facility] 03-23-2020 15:44-0500 Body weight 123.29 kg [facility] 03-23-2020 15:44-0500 BP Diastolic 89 mm[Hg] [facility] 03-23-2020 15:44-0500 BP Systolic 147 mm[Hg] [facility] 03-23-2020 15:44-0500 Height 178.5 cm [facility] 03-23-2020 15:44-0500 Pulse (Heart Rate) 85 /min [facility] 03-23-2020 15:44-0500 Pulse Oximetry 97 % [facility] 03-23-2020 15:44-0500 Respiratory Rate 18 /min [facility] 02-20-2020 15:01-0500 Body Temperature 98.2 [degF] [facility] 02-20-2020 15:01-0500 Body weight 120.02 kg [facility] 02-20-2020 15:01-0500 BP Diastolic 82 mm[Hg] [facility] 02-20-2020 15:01-0500 BP Systolic 144 mm[Hg] [facility] 02-20-2020 15:01-0500 Height 178.5 cm [facility] 02-20-2020 15:01-0500 Pulse (Heart Rate) 94 /min [facility]ina 02-20-2020 15:01-0500 Pulse Oximetry 97 % [facility] 02-20-2020 15:01-0500 Respiratory Rate 18 /min [facility] 02-14-2020 16:24-0500 Body Temperature 98.1 [degF] [facility] 02-14-2020 16:24-0500 Body weight 121.02 kg [facility] 02-14-2020 16:24-0500 BP Diastolic 93 mm[Hg] [facility] 02-14-2020 16:24-0500 BP Systolic 161 mm[Hg] [facility] 02-14-2020 16:24-0500 Height 176.5 cm [facility] 02-14-2020 16:24-0500 Pulse (Heart Rate) 93 /min Belgica Herrera [facility] 02-14-2020 16:24-0500 Pulse Oximetry 97 % Belgicaluca Herrera [facility] 02-14-2020 16:24-0500 Respiratory Rate 18 /min Belgica Herrera [facility] Encounters Encounter Date Encounter Type Care Provider Facility Start: 10-07-2024 ambulatory Citlaly LORENZO Facility:[facility] Start: 08-28-2024 End: 08-28-2024 ambulatory Citlaly Garcia MD [facility] Work Phone: Start: 08-28-2024 End: 08-28-2024 Departed Referred Citlaly Garcia MD -[facility] Start: 08-28-2024 End: 08-28-2024 ambulatory Citlaly LORENZO Facility:[facility] Start: 07-24-2024 End: 07-24-2024 Telephone encounter Claudia Chow LPN Work Phone: [facility] Comment on above: Home Care (Referral discarded ) Start: 07-16-2024 End: 07-16-2024 Telephone encounter Claudia Chow LPN Work Phone: [facility] Comment on above: Home Care (Confirmation Call ) Start: 07-12-2024 End: 07-12-2024 Telephone encounter Judith Cat LPN Work Phone: [facility] Comment on above: Home Care (MD to Follow) Start: 07-10-2024 End: 07-24-2024 Evaluation and management of inpatient JOSE DUDLEY Facility:[facility] Start: 07-10-2024 End: 07-10-2024 Office outpatient visit 40 minutes Jose Dudley MD Work Phone: [facility] [place] Comment on above: CKD stage G5/A3, GFR <15 and albumin cre atinine ratio >300 mg/g (HCC) (Primary Dx); TARYN (acute kidney injury); Anemia of renal disease; Stage 5 chronic kidney disease not on chronic dialysis (HCC); Diabetes mellitus with nephropathy (HCC); Dietary counseling and surveillance; Vitamin D deficiency; Hypertension, essential; Hyperuricemia; Other proteinuria Start: 07-04-2024 End: 07-04-2024 Orders Only Jose Dudley MD Work Phone: [facility] Comment on above: Anemia of renal disease (Primary Dx); Stage 3b chronic kidney disease (HCC); Vitamin D deficiency; Other proteinuria; Chronic kidney disease-mineral and bone disorder Start: 06-28-2024 End: 06-28-2024 ambulatory Constance Henderson RN [facility] Start: 06-28-2024 End: 06-28-2024 Patient encounter procedure Constance Henderson RN [facility] Start: 05-16-2024 End: 05-20-2024 Follow-up encounter Artem Ahmadi MD Work Phone: [facility] Start: 05-14-2024 End: 05-14-2024 Follow-up encounter Artem Ahmadi MD Work Phone: [facility] Start: 05-13-2024 Encounter for other preprocedural examination ARTEM AHMADI [facility] Start: 05-13-2024 ambulatory ARTEM AHMADI Facility:[facility] Start: 05-13-2024 End: 05-13-2024 Preprocedural examination done Artem Ahmadi MD Work Phone: [facility] Start: 05-13-2024 End: 05-13-2024 Subsequent hospital visit by physician Artem Ahmadi MD Work Phone: [facility] Comment on above: History of rectal cancer [Z85.048] Start: 04-27-2024 End: 08-20-2024 ambulatory Randi Eason RN [facility] Start: 04-27-2024 End: 08-20-2024 Patient encounter procedure Randi Eason RN [facility] Start: 04-26-2024 End: 04-26-2024 Telephone encounter Jose Dudley MD Work Phone: [facility] Comment on above: Results Start: 04-26-2024 End: 04-26-2024 ambulatory BUNNY Girma SCOTT Facility:[facility] Start: 02-20-2024 End: 02-20-2024 Orders Only Artem Ahmadi MD Work Phone: [facility] Comment on above: History of rectal cancer (Primary Dx) Procedure (COLONOSCO PY) Start: 01-24-2024 End: 01-24-2024 ambulatory BUNNY Girma SCOTT Facility:[facility] Start: 01-24-2024 End: 01-24-2024 Office outpatient visit 25 minutes Jose Dudley MD Work Phone: [facility] [place] Comment on above: Anemia of renal disease (Primary Dx); Stage 3b chronic kidney disease (HCC); Vitamin D deficiency; Other proteinuria; Chronic kidney disease-mineral and bone disorder; Diabetes mellitus with nephropathy (HCC); Dietary counseling and surveillance; Hyperkalemia; Hypertension, essential; Hyperuricemia; Secondary renal hyperparathyroidism (HCC) Start: 12-29-2023 End: 12-29-2023 [facility] Start: 12-22-2023 End: 12-22-2023 Telephone encounter Noé Kennedy MD Work Phone: [facility] Start: 12-18-2023 End: 12-18-2023 Telephone encounter Artem Ahmadi MD Work Phone: [facility] Comment on above: Schedule Colonoscopy Start: 12-08-2023 End: 03-08-2024 Transcribe Orders Florentin Gutierrez MD Work Phone: [facility] Comment on above: Other specified postprocedural states (P rimary Dx); Spinal stenosis, lumbar region with neurogenic claudication Start: 11-20-2023 End: 11-20-2023 Home visit Noé Frazier PT Work Phone: [facility] Comment on above: PT AGENCY DC W VISIT Start: 11-17-2023 Telephone encounter Noé Frazier PT Work Phone: [facility] Comment on above: Home Care (Unmade P.T. visit) Start: 11-17-2023 End: 11-17-2023 Home visit Simeon Hinds RN Work Phone: [facility] Comment on above: CARE COORDINATION PT UNMADE VISIT Start: 11-16-2023 End: 11-16-2023 Home visit Eda Bright RN Work Phone: [facility] Comment on above: SN DISC DC W VISIT Start: 11-15-2023 End: 11-15-2023 Home visit Nan Burnelisabeth FORGER HELPER Work Phone: [facility] Comment on above: SURVEYOR INSTRUMENT ASSISTANT CARE COORDINATION CARE COORDINATION Start: 11-14-2023 End: 11-14-2023 Home visit Renea Hairston HOT OILER Work Phone: [facility] Comment on above: HOT OILER ROUTINE SURVEYOR INSTRUMENT ASSISTANT CARE COORDINATIO N Start: 11-13-2023 End: 11-13-2023 Home visit Keyla Edwardsord OT/L Work Phone: [facility] Comment on above: OT DISC DC W VISIT Start: 11-10-2023 End: 11-10-2023 Home visit Eda Bright RN Work Phone: [facility] Comment on above: SN ROUTINE Start: 11-10-2023 End: 11-10-2023 ambulatory Bunny [facility] Clinical Communication Start: 11-10-2023 End: 11-10-2023 Patient encounter procedure Bunny Oshea Clinical Communication Start: 11-09-2023 End: 11-09-2023 Home visit Renea Hairston HOT OILER Work Phone: [facility] Comment on above: HOT OILER ROUTINE Start: 11-07-2023 End: 11-07-2023 Home visit Eda Bright RN Work Phone: [facility] Comment on above: SN UNMADE VISIT HOT OILER ROUTINE Start: 11-06-2023 End: 11-06-2023 Home visit Keyla Fernanda OT/L Work Phone: [facility] Comment on above: OT ROUTINE WITH BATH Start: 11-03-2023 End: 11-03-2023 Home visit Simeon Hinds RN Work Phone: [facility] Comment on above: CARE COORDINATION TELEPHONE CONTACT SN ROUTINE Start: 11-02-2023 End: 11-02-2023 Home visit Renea Hairston HOT OILER Work Phone: [facility] Comment on above: HOT OILER ROUTINE Start: 11-01-2023 End: 11-01-2023 Home visit Noé Frazier PT Work Phone: [facility] Comment on above: PT UNMADE VISIT Start: 10-31-2023 End: 10-31-2023 Home visit Eda Bright RN Work Phone: [facility] Comment on above: SN ROUTINE Start: 10-30-2023 End: 10-30-2023 Home visit Keyla Fernanda OT/L Work Phone: [facility] Comment on above: OT ROUTINE Start: 10-28-2023 Telephone encounter Zohaib Abel PT Work Phone: [facility] Comment on above: Erroneous encounter-disregard Start: 10-28-2023 End: 10-28-2023 Home visit Zohaib Abel PT Work Phone: [facility] Comment on above: PT EVAL Start: 10-27-2023 Telephone encounter Bunny Scott MD Work Phone: [facility] Comment on above: Home Care (Scheduling Confirmation (Eval uation visit)) Home Care (DELAY IN SERVICE) Start: 10-27-2023 End: 10-27-2023 Home visit Keyla Fernanda OT/L Work Phone: [facility] Comment on above: OT EVAL Start: 10-26-2023 End: 10-26-2023 Home visit Nan MOORE Work Phone: [facility] Comment on above: SURVEYOR INSTRUMENT ASSISTANT CARE COORDINATION SURVEYOR INSTRUMENT ASSISTANT EVAL SN ROUTINE Start: 10-24-2023 End: 10-24-2023 Home visit Nan Carrion FORGER HELPER Work Phone: [facility] Comment on above: SURVEYOR INSTRUMENT ASSISTANT CARE COORDINATION Start: 10-23-2023 End: 10-23-2023 Home visit Nan Carrion FORGER HELPER Work Phone: [facility] Comment on above: SURVEYOR INSTRUMENT ASSISTANT CARE COORDINATION Start: 10-22-2023 End: 10-22-2023 Home visit Karla Worely RN Work Phone: [facility] Comment on above: SN SOC Start: 10-21-2023 Telephone encounter Karla Worley RN Work Phone: [facility] Start: 10-20-2023 Telephone encounter Bunny Scott MD Work Phone: [facility] Comment on above: Home Care Start: 10-12-2023 Telephone encounter Savanna Mg LPN Work Phone: [facility] Comment on above: Home Care (MD to follow ) Home Care (Confirmat ion Call ) Start: 10-04-2023 End: 10-20-2023 Evaluation and management of inpatient BUNNY M ANISHA Facility:[facility] Start: 08-01-2023 Telephone encounter Noé Kennedy MD Work Phone: Urology Start: 07-28-2023 Telephone encounter Mónica Peterson MD Work Phone: Endocrinology Comment on above: Patient Update Start: 07-12-2023 End: 07-12-2023 Patient encounter procedure Noé Kennedy MD Work Phone: Urology Comment on above: Nocturia (Primary Dx); Benign prostatic hyperplasia with nocturia; Screening PSA (prostate specific antigen) Start: 07-12-2023 End: 07-12-2023 ambulatory BUNNY M ESTERALYSIA Facility:[facility] Start: 06-22-2023 End: 06-22-2023 Office outpatient visit 25 minutes Jose Dudley MD Work Phone: [facility] Comment on above: Anemia of renal disease (Primary Dx); Stage 3b chronic kidney disease (HCC); Vitamin D deficiency; Other proteinuria Start: 06-20-2023 Orders Only Jose Dudley MD Work Phone: [facility] Comment on above: Stage 3a chronic kidney disease (HCC) (P rimary Dx); Hypertension, essential; Vitamin D deficiency; Other proteinuria; Secondary hyperparathyroidism (HCC) Start: 06-12-2023 End: 06-13-2023 ambulatory BUNNY Girma ALCARAZALYSIA Facility:[facility] Start: 05-23-2023 ambulatory Jen Bergman RN VNS Start: 05-23-2023 Coordination of care plan Jen Bergman RN Adoption Worker Comment on above: Medical Surgical Tech Chronic Care (D /C Care Coordination - Non-CC PCP) Start: 05-23-2023 End: 05-23-2023 Patient encounter procedure Mónica Peterson MD Work Phone: Endocrinology Comment on above: Poorly controlled type 2 diabetes [facility] ([facility]) Start: 05-19-2023 ambulatory Jen Bergman RN Adoption Worker Comment on above: Medical Surgical Tech Chronic Care (P CC f/u) Start: 05-12-2023 Telephone encounter Catracho Davis DO Work Phone: [facility] [place] [facility] Comment on above: Appointment Start: 03-07-2023 Telephone encounter Mark Godinez MD Work Phone: [facility] Comment on above: Appointment Start: 01-27-2023 ambulatory Jen Bergman RN Adoption Worker Comment on above: Medical Surgical Tech Chronic Care (P CC f/u) Start: 01-23-2023 End: 01-23-2023 Patient encounter procedure Mark Godinez MD Work Phone: [facility] Comment on above: Primary osteoarthritis of left hip (Prim karin Dx) Start: 01-06-2023 Telephone encounter Mark Godinez MD Work Phone: [facility] Start: 12-23-2022 End: 12-23-2022 Patient encounter procedure Belgica Vega DO Work Phone: [facility] [employer] [employer] [facility] Comment on above: Hypertension, essential (Primary Dx); Bilateral leg edema; Diabetes mellitus due to underlying condition, uncontrolled, with hyperglycemia (HCC); Mixed hyperlipidemia; Vitamin D deficiency; H/O medication noncompliance; Hyponatremia; Elevated alkaline phosphatase level; Stage 3 chronic kidney disease, unspecified whether stage 3a or 3b CKD (HCC); BPH associated with nocturia; Mild mitral regurgitation by prior echocardiogram; Mild tricuspid regurgitation by prior echocardiogram; Malignant neoplasm of rectum (HCC); Chronic pain syndrome; Cancer associated pain; Marijuana abuse; Primary osteoarthritis of both hips; Rectal pain, chronic; Chronic bilateral low back pain with left-sided sciatica; Spinal stenosis of lumbar region with neurogenic claudication; Chronic left hip pain; Lumbar radiculopathy Start: 12-23-2022 Telephone encounter Belgica Brandon Je DO Work Phone: [facility] [facility] [employer] [employer] [facility] Comment on above: Consult (Pain Management) Start: 12-01-2022 End: 12-01-2022 Subsequent hospital visit by physician [facility] Comment on above: OTT (dyspnea on exertion) [R06.09] Precordial pain [R07 .2] Start: 11-24-2022 ambulatory Jen Bergman RN AG Adoption Worker Comment on above: Medical Surgical Tech Chronic Care (P CC f/u) Start: 11-14-2022 Telephone encounter Belgica Brandon Je DO Work Phone: [facility] Comment on above: Medication Problem Start: 11-09-2022 Telephone encounter Candice Braun MD Work Phone: [facility] Endocrinology, Diabetes, and Metabolism Comment on above: Appointment (New patient Referral) Start: 11-07-2022 Telephone encounter Belgica Roma Vega DO Work Phone: [facility] Comment on above: Internal Referrals/resources (Neurology) Start: 11-04-2022 End: 11-04-2022 Patient encounter procedure Belgica Brandon Vega DO Work Phone: [facility] Comment on above: Cutaneous abscess of abdominal wall (Janell harish Dx); Hidradenitis suppurativa; Malignant neoplasm of rectum (HCC); Diabetes mellitus due to underlying condition, uncontrolled, with hyperglycemia (HCC); H/O medication noncompliance; Precordial pain; OTT (dyspnea on exertion); Microhematuria; Lower urinary tract symptoms (LUTS); History of colonic polyps; Chronic bilateral low back pain with left-sided sciatica; Spinal stenosis of lumbar region with neurogenic claudication; Chronic left hip pain; Lumbar radiculopathy; Mixed hyperlipidemia; Hypertension, essential Start: 11-04-2022 Telephone encounter Belgica Vega DO Work Phone: [facility] Comment on above: Consult (Endocrinology) Consult (Dermatology ) Appointment Start: 11-02-2022 End: 11-02-2022 Patient encounter procedure Noé Kennedy MD Work Phone: Urology Comment on above: Nocturia (Primary Dx); Benign prostatic hyperplasia with nocturia Start: 11-02-2022 Telephone encounter Belgica Vega DO Work Phone: [facility] Comment on above: Results Start: 11-01-2022 Patient Outreach Jen Bergman RN Adoption Worker Comment on above: Medical Surgical Tech Chronic Care (P CC f/u); Transition Of Care (TCM f/u) Primary Care Coordin ator Chronic Care (Pt feels sick) Start: 10-28-2022 Telephone encounter Artem Ahmadi MD Work Phone: [facility] Comment on above: Results (Surgical pathology) Start: 10-14-2022 Telephone encounter Belgica Vega DO Work Phone: [facility] Comment on above: Patient Question Start: 10-13-2022 End: 10-13-2022 Patient encounter procedure Sukumar Toney MD Work Phone: [facility] [place] Comment on above: Precordial pain (Primary Dx); OTT (dyspnea on exertion); Primary hypertension; Dyslipidemia; Demand ischemia (HCC) Start: 10-12-2022 Patient Outreach Jen Bergman RN Adoption Worker Comment on above: Medical Surgical Tech Chronic Care (P CC f/u); Transition Of Care (TCM f/u) Start: 10-10-2022 End: 10-10-2022 Patient encounter procedure Mark Godinez MD Work Phone: [facility] Comment on above: Pain in left hip (Primary Dx) Start: 10-03-2022 Patient Outreach Jen Bergman RN AG Adoption Worker Comment on above: Transition Of Care (TCM f/u); Primary Ca re Coordinator Chronic Care (PCC f/u) Start: 09-29-2022 Patient Outreach Jen Bergman RN AG Adoption Worker Comment on above: Medical Surgical Tech Chronic Care (P CC f/u); Transition Of Care (TCM f/u) Start: 09-28-2022 Telephone encounter Belgica Vega DO Work Phone: [employer] Comment on above: Consult (Cardio / [place] / Nephro) Start: 09-28-2022 End: 09-28-2022 Patient encounter procedure Belgica Vega DO Work Phone: [employer] Comment on above: Hospital discharge follow-up (Primary Dx ); Chronic bilateral low back pain with left-sided sciatica; Spinal stenosis of lumbar region with neurogenic claudication; Nausea and vomiting in adult; Myocardial infarction due to demand ischemia (HCC); Stage 3 chronic kidney disease, unspecified whether stage 3a or 3b CKD (HCC); Diabetes mellitus due to underlying condition, uncontrolled, with hyperglycemia (HCC); Hyponatremia; Hypertension, essential; Bilateral leg edema; Mixed hyperlipidemia; Microalbuminuria; H/O medication noncompliance; Vitamin D deficiency; MEKHI (obstructive sleep apnea); Obesity, Class II, BMI 35-39.9; Marijuana use; History of BPH; 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; Malignant neoplasm of rectum (HCC); Anxiety and depression; Chronic left hip pain; Lumbar radiculopathy; Hidradenitis suppurativa; Cutaneous abscess of abdominal wall; Stage 3a chronic kidney disease (HCC) Start: 09-23-2022 End: 09-23-2022 Patient encounter procedure Binh Lake DO Work Phone: [facility] Comment on above: Lumbar back pain with radiculopathy affe cting lower extremity (Primary Dx); Chronic bilateral low back pain with left-sided sciatica Start: 09-16-2022 End: 09-16-2022 Patient encounter procedure Meera Contreras OD Work Phone: [facility] Comment on above: Pseudophakia of both eyes (Primary Dx) Start: 09-05-2022 Telephone encounter Renetta Gannon MD Work Phone: [facility] Comment on above: Appointment Start: 09-02-2022 End: 09-02-2022 Orders Only Artem Ahmadi MD Work Phone: [facility] Comment on above: History of rectal cancer (Primary Dx) Lumbar back pain wit h radiculopathy affecting lower extremity (Primary Dx); Chronic left hip pain; Spinal stenosis of lumbar region with neurogenic claudication; Lumbar radiculopathy; Chronic bilateral low back pain with left-sided sciatica; Spinal stenosis of lumbar region, unspecified whether neurogenic claudication present Start: 08-30-2022 ambulatory Belgica Vega DO Work Phone: Adoption Worker Start: 08-30-2022 End: 08-30-2022 Subsequent hospital visit by physician [facility] (I-Stat/Lg Bore/1.5t) [facility] Comment on above: Pain in hip [M25.559] Start: 08-30-2022 End: 08-30-2022 Subsequent hospital visit by physician Lamonte Cutris MD Work Phone: [facility] Comment on above: Pain of left hip [M25.552] Pain in hip [M25.559 ] Start: 08-15-2022 Telephone encounter Renetta Gannon MD Work Phone: [facility] Comment on above: Appointment (sx) Start: 08-12-2022 End: 08-12-2022 Patient encounter procedure Belgica Veag DO Work Phone: [facility] Comment on above: Encounter for annual physical exam (Prim karin Dx); Hypertension, essential; Bilateral leg edema; Mixed hyperlipidemia; Diabetes mellitus due to underlying condition, uncontrolled, with hyperglycemia (HCC); H/O medication noncompliance; Microalbuminuria; Hyponatremia; Vitamin D deficiency; MEKHI (obstructive sleep apnea); Obesity, Class II, BMI 35-39.9; Stage 3a chronic kidney disease (HCC); History of BPH; Marijuana use; 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; Malignant neoplasm of rectum (HCC); Anxiety and depression; 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 associated with diabetes mellitus of other type (HCC); Nuclear senile cataract of both eyes; Screening for prostate cancer; Screening for thyroid disorder; Screening for deficiency anemia; Encounter for immunization; Diabetic peripheral neuropathy associated with type 2 diabetes mellitus (HCC); Onychomycosis Start: 08-09-2022 Telephone encounter Renetta Gannon MD Work Phone: [facility] Comment on above: Appointment (A-scan reminder) Start: 07-28-2022 Telephone encounter Renetta Gannon MD Work Phone: [facility] Comment on above: Returning Patient's Call (r/s ascan) Start: 07-27-2022 Telephone encounter Renetta Gannon MD Work Phone: [facility] Comment on above: Appointment (ascan) Start: 07-14-2022 End: 07-14-2022 Patient encounter procedure Renetta Gannon MD Work Phone: [facility] Comment on above: Nuclear senile cataract of both eyes (Pr imary Dx) Start: 07-01-2022 End: 07-01-2022 Patient encounter procedure Binh Lake DO Work Phone: [facility] Comment on above: Pain in hip (Primary Dx); Lumbar back pain with radiculopathy affecting lower extremity; Chronic left hip pain Start: 06-29-2022 End: 06-29-2022 Patient encounter procedure Belgica Vega DO Work Phone: [facility] Comment on above: Hypertension, essential (Primary Dx); Bilateral leg edema; Diabetes mellitus due to underlying condition, uncontrolled, with hyperglycemia (HCC); H/O medication noncompliance; Microalbuminuria; Hyponatremia; Vitamin D deficiency; Mixed hyperlipidemia; MEKHI (obstructive sleep apnea); Obesity, Class II, BMI 35-39.9; Stage 3a chronic kidney disease (HCC); Marijuana use; 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; Malignant neoplasm of rectum (HCC); Anxiety and depression; Benign prostatic hyperplasia, unspecified whether lower urinary tract symptoms present; Pulmonary nodule, right; Bilateral lower extremity edema Start: 06-28-2022 Unlisted evaluation and management service Belgica Vega DO Work Phone: [facility] Comment on above: Opened In Error Start: 06-22-2022 Chart abstracting [facility] Main Work Phone: [facility] Comment on above: Psg Check In (Adult) Start: 06-01-2022 End: 06-01-2022 ambulatory Rory Mendoza MD Work Phone: [facility] Comment on above: History of rectal cancer (Primary Dx); Pulmonary nodules; Hip pain; Spinal stenosis of lumbar region with neurogenic claudication Start: 06-01-2022 End: 06-01-2022 Patient encounter procedure Rory Mendoza MD Work Phone: [facility] Start: 05-19-2022 Telephone encounter Belgica Vega DO Work Phone: [facility] Comment on above: Consult Start: 05-18-2022 End: 05-18-2022 Patient encounter procedure Belgica Vega DO Work Phone: [facility] Comment on above: Hypertension, essential (Primary Dx); Bilateral leg edema; Diabetes mellitus due to underlying condition, uncontrolled, with hyperglycemia (HCC); H/O medication noncompliance; Microalbuminuria; Hyponatremia; Vitamin D deficiency; Mixed hyperlipidemia; EMKHI (obstructive sleep apnea); Obesity, Class II, BMI 35-39.9; Stage 3a chronic kidney disease (HCC); Marijuana use; 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; Malignant neoplasm of rectum (HCC); Mood disorder (HCC); Anxiety and depression; Benign prostatic hyperplasia, unspecified whether lower urinary tract symptoms present; Glaucoma suspect of both eyes; 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 associated with diabetes mellitus of other type (HCC); Nuclear senile cataract of both eyes; Nausea and vomiting, unspecified vomiting type Start: 05-11-2022 ambulatory Jen Bergman RN Adoption Worker Comment on above: Medical Surgical Tech Chronic Care (P CC f/u) Start: 05-05-2022 Telephone encounter Renetta Gannon MD Work Phone: [facility] Comment on above: eyeglass perscription Start: 05-04-2022 End: 05-04-2022 Patient encounter procedure Noé Kennedy MD Work Phone: Urology Comment on above: Nocturia; Screening PSA (prostate specific antigen); Hematuria, microscopic; Benign prostatic hyperplasia with nocturia Start: 04-26-2022 Patient Outreach Jen Bergman RN Adoption Worker Comment on above: Medical Surgical Tech Chronic Care (P CC f/u); Transition Of Care (TCM f/u) Start: 04-21-2022 Patient Outreach Jen Bergman RN Adoption Worker Comment on above: Medical Surgical Tech Chronic Care (P CC f/u); Transition Of Care (TCM f/u) Start: 04-13-2022 End: 04-13-2022 Patient encounter procedure Belgica Vega DO Work Phone: [facility] Comment on above: Hospital discharge follow-up (Primary Dx ); Hyperglycemia; Nausea and vomiting, unspecified vomiting type; Marijuana use; 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; Hypertension, essential; Bilateral leg edema; Diabetes mellitus due to underlying condition, uncontrolled, with hyperglycemia (HCC); H/O medication noncompliance; Microalbuminuria; Hyponatremia; Vitamin D deficiency; MEKHI (obstructive sleep apnea); Mixed hyperlipidemia; Malignant neoplasm of rectum (HCC); Benign prostatic hyperplasia, unspecified whether lower urinary tract symptoms present; Obesity, Class II, BMI 35-39.9; Anxiety and depression; Stage 3a chronic kidney disease (HCC); Type 2 diabetes mellitus with stage 3a chronic kidney disease, with long-term current use of insulin (HCC); Diabetes mellitus due to underlying condition with hyperglycemia, with long-term current use of insulin (HCC) Start: 04-12-2022 Social Work [facility] Comment on above: Needs assistance with community resource s (Primary Dx); Distressed about housing issues Start: 04-05-2022 Patient Outreach Jen Bergman RN Adoption Worker Comment on above: Transition Of Care (AG D/C 04/01/22) Start: 03-30-2022 Telephone encounter Belgica Vega DO Work Phone: [facility] Comment on above: Consult Start: 03-23-2022 Telephone encounter Belgica Vega DO Work Phone: [facility] Comment on above: Results Start: 03-17-2022 Patient Outreach Jen Bergman RN Adoption Worker Comment on above: Transition Of Care (TCM f/u); Primary Ca re Coordinator Chronic Care (PCC f/u) Start: 03-11-2022 Patient Outreach Jen Bergman RN Adoption Worker Comment on above: Medical Surgical Tech Chronic Care (P CC f/u); Transition Of Care (TCM f/u) Start: 03-10-2022 Telephone encounter Belgica Vega DO Work Phone: [facility] Comment on above: Patient Update Start: 03-01-2022 End: 03-01-2022 Patient encounter procedure Belgica Vega DO Work Phone: [facility] Comment on above: Hypertension, essential (Primary Dx); Bilateral leg edema; Diabetes mellitus due to underlying condition, uncontrolled, with hyperglycemia (HCC); H/O medication noncompliance; Microalbuminuria; Hyponatremia; Vitamin D deficiency; MEKHI (obstructive sleep apnea); Mixed hyperlipidemia; 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; Malignant neoplasm of rectum (HCC); Benign prostatic hyperplasia, unspecified whether lower urinary tract symptoms present; Anxiety and depression; Marijuana use; Obesity, Class II, BMI 35-39.9; Mood disorder (HCC); Stage 3a chronic kidney disease (HCC); Encounter for immunization Start: 03-01-2022 Telephone encounter Belgica Vega DO Work Phone: [facility] Comment on above: Consult Start: 02-23-2022 Telephone encounter Artem Ahmadi MD Work Phone: [facility] Comment on above: Appointment Start: 02-21-2022 ambulatory Jen Bergman RN AG VNS Start: 02-21-2022 Chart abstracting Janie Pickett APRN.PRODUCTION INTERN Work Phone: [facility] Comment on above: Transition Of Care (SNF status - SNF D/C 02/15/22); Medical Surgical Tech Chronic Care (PCC f/u) Start: 02-21-2022 Telephone encounter Janie Pickett APRN.CNP Work Phone: [facility] Comment on above: No Show Start: 01-28-2022 Patient Outreach Jen Bergman RN AG Adoption Worker Comment on above: Transition Of Care (CC Yarsanism D/C to S NF 01/27/22) Start: 01-20-2022 End: 01-27-2022 Evaluation and management of inpatient ANTOINE OLIVAS Facility:[facility] Start: 01-19-2022 Admission to [facility] Start: 01-19-2022 ambulatory [facility] Intake Comment on above: Behavioral Problem Start: 01-18-2022 ambulatory Jen Bergman RN AG VNS Start: 01-18-2022 Follow-up encounter Jen Bergman RN Adoption Worker Comment on above: Medical Surgical Tech Hospital Follow Up (Hospital admit - SBAR) Start: 01-17-2022 End: 01-20-2022 Evaluation and management of inpatient BELGICA VEGA Facility:[facility] Start: 01-17-2022 End: 01-17-2022 Patient encounter procedure Billy Cody MD Work Phone: [facility] Medicine Comment on above: Stage 3a chronic kidney disease (HCC) (P rimary Dx); Type 2 diabetes mellitus with stage 3a chronic kidney disease, with long-term current use of insulin (HCC); Hypertension, essential; Mixed hyperlipidemia; Chronic bilateral low back pain with left-sided sciatica; Marijuana use; Vitamin D deficiency; Obesity, Class II, BMI 35-39.9; Severe episode of recurrent major depressive disorder, without psychotic features (HCC) Start: 01-17-2022 Admission to establishment Lyndsay [place] FORGER HELPER [facility] Start: 01-17-2022 End: 01-17-2022 ambulatory Lyndsay GUANW Behavioral Health Intake Comment on above: Psychiatric Problem Start: 01-14-2022 Telephone encounter Renetta Gannon MD Work Phone: [facility] Comment on above: Appointment Appointment (A-scan reminder); Surgery Cancelled (Per Patient) Start: 01-07-2022 ambulatory Jen Bergman RN Adoption Worker Comment on above: Medical Surgical Tech Chronic Care (P CC f/u) Start: 01-03-2022 End: 01-03-2022 Patient encounter procedure Belgica Brandon Je CARNEY Work Phone: [facility] Comment on above: Hypertension, essential (Primary Dx); Bilateral leg edema; Diabetes mellitus due to underlying condition, uncontrolled, with hyperglycemia (HCC); H/O medication noncompliance; Elevated serum creatinine; Microalbuminuria; Hyponatremia; Vitamin D deficiency; MEKHI (obstructive sleep apnea); Mixed hyperlipidemia; 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; Malignant neoplasm of rectum (HCC); Benign prostatic hyperplasia, unspecified whether lower urinary tract symptoms present; Anxiety and depression; Marijuana use; Obesity, Class II, BMI 35-39.9; Glaucoma suspect of both eyes; 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 associated with diabetes mellitus of other type (HCC); Difficulty controlling anger; Oppositional defiant disorder with chronic irritability and anger Start: 12-28-2021 ambulatory Jen Bergman RN Adoption Worker Comment on above: Medical Surgical Tech Chronic Care (P CC f/u) Start: 12-20-2021 Chart abstracting Billy Cody MD Work Phone: [facility] Medicine Start: 12-03-2021 ambulatory Jen Bergman RN Adoption Worker Comment on above: Medical Surgical Tech Chronic Care (P CC f/u) Start: 11-30-2021 Telephone encounter Renetta Gannon MD Work Phone: [facility] Comment on above: Schedule Surgery ([facility]) Start: 11-22-2021 Telephone encounter Renetta Gannon MD Work Phone: [facility] Comment on above: Letter Start: 11-09-2021 Telephone encounter Renetta Gannon MD Work Phone: [facility] Comment on above: Schedule Surgery ([facility] Right [facility]) Start: 11-05-2021 End: 11-05-2021 Patient encounter procedure Belgica Vega DO Work Phone: [facility] Comment on above: Hypertension, essential (Primary Dx); Bilateral leg edema; Diabetes mellitus due to underlying condition, uncontrolled, with hyperglycemia (HCC); H/O medication noncompliance; Elevated serum creatinine; Microalbuminuria; Hyponatremia; Vitamin D deficiency; Mixed hyperlipidemia; MEKHI (obstructive sleep apnea); 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; Malignant neoplasm of rectum (HCC); Benign prostatic hyperplasia, unspecified whether lower urinary tract symptoms present; Anxiety and depression; Marijuana use; Diarrhea, unspecified type; Obesity, Class II, BMI 35-39.9; Glaucoma suspect of both eyes; 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 associated with diabetes mellitus of other type (HCC); Nuclear senile cataract of both eyes Glaucoma suspect of both eyes (Primary Dx); Mild nonproliferative diabetic retinopathy of both eyes without macular edema associated with type 2 diabetes mellitus (HCC); Nuclear senile cataract of both eyes Start: 11-01-2021 ambulatory Jen Bergman RN Adoption Worker Comment on above: Medical Surgical Tech Chronic Care (P CC f/u) Start: 10-27-2021 End: 10-27-2021 Patient encounter procedure Noé Kennedy MD Work Phone: Urology Comment on above: Benign prostatic hyperplasia with noctur ia (Primary Dx); Hematuria, microscopic; Screening PSA (prostate specific antigen); Nocturia Start: 10-26-2021 Telephone encounter Belgica Vega DO Work Phone: [facility] Comment on above: Follow Up Phone Call (called pt mailbox full mailed letter) Start: 10-14-2021 Telephone encounter Artem Ahmadi MD Work Phone: [facility] Comment on above: Schedule Surgery Start: 10-05-2021 End: 10-05-2021 Patient encounter procedure Belgica Vega DO Work Phone: [facility] Comment on above: Abscess of neck (Primary Dx); Diabetes mellitus due to underlying condition, uncontrolled, with hyperglycemia (HCC); H/O medication noncompliance; Elevated serum creatinine; Elevated alkaline phosphatase level; Hyponatremia; Microalbuminuria; Hypertension, essential; Bilateral leg edema; Vitamin D deficiency; Mixed hyperlipidemia; MEKHI (obstructive sleep apnea); Hyperkalemia; 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; Malignant neoplasm of rectum (HCC); Benign prostatic hyperplasia, unspecified whether lower urinary tract symptoms present; Anxiety and depression; Marijuana use; Diarrhea, unspecified type; Uncontrolled hypertension; Obesity, Class II, BMI 35-39.9 Start: 10-05-2021 Telephone encounter Belgica Vega DO Work Phone: [facility] Comment on above: Internal Referrals/resources (Nephrology ) Start: 09-20-2021 Telephone encounter Belgica Vega DO Work Phone: [facility] Comment on above: Internal Referrals/resources (Ophthalmol ogy) Start: 09-20-2021 End: 09-20-2021 Patient encounter procedure Belgica Vega DO Work Phone: [facility] Comment on above: Hospital discharge follow-up (Primary Dx ); Abscess of neck; Diabetes mellitus due to underlying condition, uncontrolled, with hyperglycemia (HCC); H/O medication noncompliance; Elevated serum creatinine; Elevated alkaline phosphatase level; Hyponatremia; Microalbuminuria; Hypertension, essential; Bilateral leg edema; MEKHI (obstructive sleep apnea); Vitamin D deficiency; Mixed hyperlipidemia; Hyperkalemia; 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; Malignant neoplasm of rectum (HCC); Benign prostatic hyperplasia, unspecified whether lower urinary tract symptoms present; Anxiety and depression; Marijuana use; Screening for diabetic retinopathy Start: 09-17-2021 ambulatory Jen Bergman RN Adoption Worker Comment on above: Medical Surgical Tech Chronic Care (P CC f/u) Start: 09-08-2021 Patient Outreach Jen Bergman RN Adoption Worker Comment on above: Transition Of Care (ED D/C 09/07/21); Prim karin White Sugar Pan Tank Operator - Patient Initiated (Received call from pt) Start: 09-06-2021 ambulatory Jen Bergman RN Adoption Worker Comment on above: Medical Surgical Tech Chronic Care (P CC f/u) Start: 08-27-2021 Chart abstracting Janie Pickett APRN.PRODUCTION INTERN Work Phone: [facility] Start: 08-13-2021 Telephone encounter Artem Ahmadi MD Work Phone: [facility] Comment on above: Results Start: 08-11-2021 End: 08-11-2021 Patient encounter procedure Belgica Vega DO Work Phone: [facility] Comment on above: Diabetes mellitus due to underlying cond ition, uncontrolled, with hyperglycemia (HCC) (Primary Dx); Microalbuminuria; Hypertension, essential; Bilateral leg edema; MEKHI (obstructive sleep apnea); Vitamin D deficiency; Mixed hyperlipidemia; Elevated alkaline phosphatase level; Elevated serum creatinine; Hyperkalemia; 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; Malignant neoplasm of rectum (HCC); Benign prostatic hyperplasia, unspecified whether lower urinary tract symptoms present; Anxiety and depression; Marijuana use; H/O medication noncompliance; Uncontrolled hypertension Start: 08-09-2021 End: 08-09-2021 Subsequent hospital visit by physician [facility] (I-Stat/1.5t) [facility] Comment on above: Neoplasm: colorectal, rx monitor or foll ow up Start: 08-05-2021 ambulatory Jen Bergman RN Adoption Worker Comment on above: Medical Surgical Tech Chronic Care (P CC f/u) Start: 07-23-2021 Refill Belgica Vega DO Work Phone: Adoption Worker Comment on above: Medical Surgical Tech Chronic Care (R efill) Start: 07-22-2021 ambulatory Jen Bergman RN Adoption Worker Comment on above: Medical Surgical Tech Chronic Care (P CC f/u) Start: 07-06-2021 Telephone encounter Belgica Vega DO Work Phone: [facility] Comment on above: Results; Appointment; Patient Update Start: 07-01-2021 Chart abstracting Janie Pickett APRN.PRODUCTION INTERN Work Phone: [facility] Start: 09-10-2020 End: 09-10-2020 Subsequent hospital visit by physician Mri [facility](I-Stat/Lg Bore/1.5t) Work Phone: Radiology Comment on above: Malignant neoplasm of rectum (HCC) [C20] Start: 05-30-2020 End: 05-30-2020 Patient encounter procedure Aron Reynolds Work Phone: [facility] Start: 05-30-2020 Results Only Aron Reynolds Work Phone: [facility] [place] Start: 05-29-2020 End: 05-29-2020 Patient encounter procedure [facility] Provider [facility] Start: 05-29-2020 Results Only [facility] Provider [facility] Start: 05-29-2020 End: 05-29-2020 Telephone encounter Belgica Herrera Work Phone: [facility] Comment on above: Patient Update (Neurology referral, no n umber on file for the patient) Start: 05-28-2020 End: 05-28-2020 Patient encounter procedure Belgica Herrera Work Phone: [facility] Comment on above: Hypertension, essential (Primary Dx); Chronic nausea; Myalgia; Marijuana use; Drooling; Chronic vertigo; Screening for diabetic retinopathy; Glucosuria; Uncontrolled type 2 diabetes mellitus with hyperglycemia (HCC); Primary osteoarthritis of left shoulder; Mixed hyperlipidemia Start: 05-28-2020 End: 05-28-2020 Patient encounter procedure Juancho (Dion-S) Marichuy Work Phone: [facility] Behavioral Medicine (Julio César) Comment on above: Severe episode of recurrent major depres sive disorder, without psychotic features (HCC) (Primary Dx); Anxiety disorder, unspecified type Start: 05-14-2020 End: 05-14-2020 Telephone encounter Belgica Herrera Work Phone: [facility] Comment on above: Results Start: 05-14-2020 End: 05-14-2020 Subsequent hospital visit by physician [place]r [place] [facility] Comment on above: Left shoulder pain, unspecified chronici ty [M25.512] Start: 05-06-2020 End: 05-06-2020 Telephone encounter Belgica Herrera [facility] Phone[facility] Comment on above: Patient Update Start: 05-05-2020 End: 05-05-2020 Patient encounter procedure Carla (Pt) Deuce Work Phone: [facility] Comment on above: Chronic bilateral low back pain, unspeci fied whether sciatica present (Primary Dx); Weakness; Decreased mobility and endurance Start: 04-27-2020 End: 04-27-2020 Patient encounter procedure Belgica Herrera Work Phone: [facility] Comment on above: Uncontrolled hypertension (Primary Dx); Diabetes mellitus due to underlying condition, uncontrolled, with hyperglycemia (HCC); Mixed hyperlipidemia; Marijuana use; Chronic bilateral low back pain with sciatica, sciatica laterality unspecified; Lumbar radiculopathy; Dysuria; Fall (on) (from) other stairs and steps, initial encounter; Left shoulder pain, unspecified chronicity Start: 03-23-2020 End: 03-23-2020 Patient encounter procedure Belgica Herrera Work Phone: [facility] Comment on above: Uncontrolled hypertension (Primary Dx); Diabetes mellitus due to underlying condition, uncontrolled, with hyperglycemia (HCC); Vitamin D deficiency; Obesity, Class II, BMI 35-39.9; Mixed hyperlipidemia; Encounter for immunization; Diabetic peripheral neuropathy associated with type 2 diabetes mellitus (HCC) Start: 03-03-2020 End: 03-03-2020 Telephone encounter Belgica Herrera Work Phone: [facility] Comment on above: Medication Problem Start: 02-28-2020 End: 02-28-2020 Telephone encounter Belgica Herrera Work Phone: [facility] Comment on above: Consult Start: 02-21-2020 End: 02-21-2020 Patient encounter procedure [facility] Provider [facility] Start: 02-21-2020 Results Only [facility] Provider [facility] Start: 02-21-2020 End: 02-21-2020 Telephone encounter Bunny Giraldo [facility] Comment on above: Consult (CONSULTS TO ENT AND OPTHALMOLOG Y) Start: 02-20-2020 End: 02-20-2020 Patient encounter procedure Belgica Roma Herrera Work Phone: [facility] Comment on above: Uncontrolled hypertension (Primary Dx); Diabetes mellitus due to underlying condition, uncontrolled, with hyperglycemia (HCC); Obesity, Class II, BMI 35-39.9; Chronic bilateral low back pain with sciatica, sciatica laterality unspecified; Marijuana use; Microalbuminuria; Vitamin D deficiency; Mixed hyperlipidemia; Elevated alkaline phosphatase level; Tinnitus aurium, bilateral; Dizziness; Dizziness and giddiness Start: 02-18-2020 End: 02-18-2020 Telephone encounter Belgica L Javier Work Phone: [facility] [facility] Comment on above: Results Start: 02-17-2020 End: 02-17-2020 Telephone encounter [facility] Comment on above: Appointment (CONSULT TO ORTHO PLACED) Results Appointment (CONSULT TO PHYSICAL THERAPY PLACED) Start: 02-17-2020 End: 02-17-2020 Subsequent hospital visit by physician [facility] Comment on above: Chronic bilateral low back pain with sci atica, sciatica laterality unspecified [M54.40, G89.29] Start: 02-14-2020 End: 02-14-2020 Patient encounter procedure Belgica L Javier Work Phone: [facility] Comment on above: Routine physical examination (Primary Dx ); Uncontrolled hypertension; Controlled type 2 diabetes mellitus without complication, without long-term current use of insulin (HCC); Obesity, Class II, BMI 35-39.9; Marijuana use; Chronic bilateral low back pain with sciatica, sciatica laterality unspecified; Special screening examination for viral disease; Screening for HIV (human immunodeficiency virus); Anxiety with depression Procedures Date Procedure Procedure Detail Performing Clinician Start: 07-12-2024 Echocardiography BUNNY ESTERLE Start: 07-10-2024 Electrocardiogram BUNNY ESTERLE Start: 05-13-2024 Sodium serum plasma or whole blood Artem Ahmadi MD Work Phone: Start: 05-13-2024 Colonoscopy flx dx w/collj spec when pfrmd Artem Ahmadi MD Work Phone: Start: 05-13-2024 End: 05-13-2024 Colonoscopy Artem Ahmadi MD Work Phone: Start: 12-29-2023 End: 12-29-2023 [facility] medical xm&eval hannajevonsv estab pt 1/> Type 2 diabetes mellitus with both eyes affected by moderate nonproliferative retinopathy without macular edema, with long-term current use of insulin (HCC) Renetta Gannon MD Work Phone: Comment on above: Type 2 diabetes mellitus with both eyes affected by moderate nonproliferative retinopathy without macular edema, with long-term current use of insulin (HCC) (Primary Dx); Pseudophakia of both eyes Start: 10-20-2023 History of excision of lamina of lumbar vertebra for decompression of spinal cord History of lumbar laminectomy for spinal cord decompression Bunny Scott MD Work Phone: Start: 07-12-2023 Urnls dip stick/tablet rgnt auto w/o microscopy Noé Kennedy MD Work Phone: Start: 07-12-2023 BLADDER SCAN Noé Kennedy MD Work Phone: Start: 05-23-2023 Gluc bld gluc mntr dev cleared fda spec home use Mónica Peterson MD Work Phone: Start: 05-23-2023 Hemoglobin A1c/Hemoglobin.total in Blood Mónica Peterson MD Work Phone: Start: 12-01-2022 Myocardial spect multiple studies Sukumar Toney MD Work Phone: Start: 12-01-2022 Echo tthrc r-t 2d w/wom-mode compl spec&colr d Sukumar Toney MD Work Phone: Start: 08-30-2022 End: 08-30-2022 Injection hip arthrography w/o anesthesia Binh Lake DO Work Phone: Start: 07-01-2022 Radex spine lumbosacral 2/3 views Binh Lake DO Work Phone: Start: 06-29-2022 Hemoglobin A1c/Hemoglobin.total in Blood Belgica Vega DO Work Phone: Start: 05-18-2022 Hemoglobin A1c/Hemoglobin.total in Blood Belgica Vega DO Work Phone: Start: 05-18-2022 Gluc bld gluc mntr dev cleared fda spec home use Belgica Vega DO Work Phone: Start: 04-13-2022 Hemoglobin A1c/Hemoglobin.total in Blood Belgica Vega DO Work Phone: Start: 04-13-2022 Gluc bld gluc mntr dev cleared fda spec home use Belgica Vega DO Work Phone: Start: 03-01-2022 Hemoglobin A1c/Hemoglobin.total in Blood Belgica Vega DO Work Phone: Start: 03-01-2022 Gluc bld gluc mntr dev cleared fda spec home use Belgica Vega DO Work Phone: Start: 03-01-2022 INFLUENZA VACCINE QUADRIVALENT 6 MO - 64 YRS IM Belgica Vega DO Work Phone: Start: 01-03-2022 Hemoglobin A1c/Hemoglobin.total in Blood Belgica Vega DO Work Phone: Start: 01-03-2022 Gluc bld gluc mntr dev cleared fda spec home use Belgica Vega DO Work Phone: Start: 11-05-2021 Hemoglobin A1c/Hemoglobin.total in Blood Belgica Vega DO Work Phone: Start: 11-05-2021 Gluc bld gluc mntr dev cleared fda spec home use Belgica Vega DO Work Phone: Start: 11-05-2021 Computerized ophthalmic imaging optic nerve Renetta Gannon MD Work Phone: Start: 10-05-2021 Hemoglobin A1c/Hemoglobin.total in Blood Belgica Vega DO Work Phone: Start: 10-05-2021 Gluc bld gluc mntr dev cleared fda spec home use Belgica Vega DO Work Phone: Start: 09-20-2021 Hemoglobin A1c/Hemoglobin.total in Blood Belgica Vega DO Work Phone: Start: 09-20-2021 Gluc bld gluc mntr dev cleared fda spec home use Belgica Vega DO Work Phone: Start: 08-11-2021 Hemoglobin A1c/Hemoglobin.total in Blood Belgica Vega DO Work Phone: Start: 08-11-2021 Gluc bld gluc mntr dev cleared fda spec home use Belgica Vega DO Work Phone: Start: 08-09-2021 Mri pelvis w/o & w/contrast material Artem Ahmadi MD Work Phone: Start: 09-24-2020 Mri pelvis w/o & w/contrast material Artem Ahmadi MD Work Phone: Start: 07-24-2020 Colonoscopy Janie Pickett APRN.PRODUCTION INTERN Work Phone: Start: 05-30-2020 PT ED PATIENT INFORMATION Aron Simdemi mcdaniel Work Phone: Start: 05-29-2020 CARDIAC [facility] Provider Start: 05-28-2020 Adult depression screening assessment Juancho Benedict Start: 05-14-2020 Radex shoulder complete minimum 2 views Belgica Herrera Work Phone: Start: 04-27-2020 Gluc bld gluc mntr dev cleared fda spec home use Belgica Herrera Work Phone: Start: 04-27-2020 ACCUCHECK B/O Belgica Herrera Work Phone: Start: 03-23-2020 INFLUENZA VACCINE QUADRIVALENT 6 MO - 64 YRS IM Belgica Herrera Work Phone: Start: 02-21-2020 End: 02-21-2020 CARDIAC [facility] Provider Start: 02-17-2020 Radex spine lumbosacral 2/3 views Belgica Herrera Work Phone: Start: 02-14-2020 Adult depression screening assessment Belgica Herrera Plan of Treatment Date Care Activity Detail Author Start: 10-19-2030 DTaP/Tdap/Td Vaccines (2 - Td or Tdap) DTaP/Tdap/Td Vaccines (2 - Td or Tdap) [facility] Start: 10-19-2030 Urine microalbumin profile [facility] Start: 11-02-2027 PROSTATE CANCER SCREENING DISCUSSION PROSTATE CANCER SCREENING DISCUSSION [facility] Start: 11-02-2027 Prostate specific antigen measurement Prostate Cancer Screening Discussion [facility] Start: 05-13-2027 Screening for malignant neoplasm of colon [facility] Start: 01-19-2027 PROSTATE CANCER SCREENING DISCUSSION PROSTATE CANCER SCREENING DISCUSSION [facility] Start: 07-05-2026 PROSTATE CANCER SCREENING DISCUSSION PROSTATE CANCER SCREENING DISCUSSION [facility] Start: 04-09-2026 PROSTATE CANCER SCREENING DISCUSSION PROSTATE CANCER SCREENING DISCUSSION [facility] Start: 07-24-2025 Complete blood count Hemoglobin/Hematocrit [facility] Start: 07-24-2025 Creatinine measurement Serum Creatinine [facility] Start: 07-16-2025 Complete blood count Hemoglobin/Hematocrit [facility] Start: 07-16-2025 Creatinine measurement Serum Creatinine [facility] Start: 07-12-2025 Complete blood count Hemoglobin/Hematocrit [facility] Start: 07-12-2025 Creatinine measurement Serum Creatinine [facility] Start: 07-11-2025 Diabetes: Urine Albumin-Creatinine Ratio for Kidney Health Diabetes: Urine Albumin-Creatinine Ratio for Kidney Health [facility] Start: 07-10-2025 Complete blood count Hemoglobin/Hematocrit [facility] Start: 07-10-2025 Creatinine measurement Serum Creatinine [facility] Start: 05-13-2025 Complete blood count Hemoglobin/Hematocrit [facility] Start: 05-13-2025 Screening for malignant neoplasm of colon [facility] Start: 04-26-2025 Complete blood count Hemoglobin/Hematocrit [facility] Start: 04-26-2025 Creatinine measurement Serum Creatinine [facility] Start: 04-26-2025 Diabetes: Estimated Glomerular Filtration Rate for Kidney Health Diabetes: Estimated Glomerular Filtration Rate for Kidney Health [facility] Start: 02-16-2025 LIPID SCREEN LIPID SCREEN [facility] Start: 02-16-2025 PROSTATE CANCER SCREENING DISCUSSION PROSTATE CANCER SCREENING DISCUSSION [facility] Start: 01-23-2025 Complete blood count Hemoglobin/Hematocrit [facility] Start: 01-23-2025 Creatinine measurement Serum Creatinine [facility] Start: 01-23-2025 Diabetes: Urine Albumin-Creatinine Ratio for Kidney Health Diabetes: Urine Albumin-Creatinine Ratio for Kidney Health [facility] Start: 12-28-2024 Glaucoma screening [facility] Start: 2024 Influenza vaccination Influenza Vaccine (Season Ended) [facility] Start: 11-05-2024 BP Controlled (<130/80) BP Controlled (<130/80) [facility] Start: 10-17-2024 Complete blood count Hemoglobin/Hematocrit [facility] Start: 10-17-2024 Creatinine measurement Serum Creatinine [facility] Start: 10-17-2024 Diabetes: Estimated Glomerular Filtration Rate for Kidney Health Diabetes: Estimated Glomerular Filtration Rate for Kidney Health [facility] Start: 10-09-2024 End: 10-09-2024 Patient encounter procedure 10/09/2024 3:45 PM EDT Office Visit [facility] [place] [address] [place], [place] [id number] Jose Dudley MD [address] [facility] [address] [place], [place] [id number] follow-up 3m [facility] [place] Comment on above: follow-up Start: 10-09-2024 End: 07-10-2025 25-hydroxyvitamin D3 [Mass/volume] in Serum or Plasma VITAMIN D 25 HYDROXY Lab Routine Vitamin D deficiency Expected: 10/09/2024, Expires: 07/10/2025 [facility] Comment on above: Expected: 10/09/2024, Expires: Start: 10-09-2024 End: 07-10-2025 CBC W Auto Differential panel - Blood COMPLETE BLOOD COUNT AND DIFFERENTIAL Lab Routine Anemia of renal disease Expected: 10/09/2024, Expires: 07/10/2025 [facility] Work Phone: Comment on above: Expected: 10/09/2024, Expires: Start: 10-09-2024 End: 07-10-2025 Magnesium [Mass/volume] in Serum or Plasma MAGNESIUM Lab Routine Stage 5 chronic kidney disease not on chronic dialysis (HCC) Expected: 10/09/2024, Expires: 07/10/2025 [facility] Comment on above: Expected: 10/09/2024, Expires: Start: 10-09-2024 End: 01-08-2025 Microalbumin/Creatinine [Mass Ratio] in Urine ALBUMIN/CREATININE RATIO, URINE Lab Routine Other proteinuria Expected: 10/09/2024, Expires: 01/08/2025 [facility] Comment on above: Expected: 10/09/2024, Expires: Start: 10-09-2024 End: 07-10-2025 Parathyrin.intact [Mass/volume] in Serum or Plasma PTH INTACT Lab Routine Stage 5 chronic kidney disease not on chronic dialysis (HCC) Expected: 10/09/2024, Expires: 07/10/2025 [facility] Comment on above: Expected: 10/09/2024, Expires: Start: 10-09-2024 End: 07-10-2025 Renal function 2000 panel - Serum or Plasma RENAL FUNCTION PANEL Lab Routine Stage 5 chronic kidney disease not on chronic dialysis (HCC) Expected: 10/09/2024, Expires: 07/10/2025 [facility] Comment on above: Expected: 10/09/2024, Expires: Start: 10-09-2024 End: 07-10-2025 Urate [Mass/volume] in Serum or Plasma URIC ACID Lab Routine Stage 5 chronic kidney disease not on chronic dialysis (HCC) Expected: 10/09/2024, Expires: 07/10/2025 [facility] Comment on above: Expected: 10/09/2024, Expires: Start: 10-09-2024 End: 01-08-2025 Urinalysis complete panel - Urine URINALYSIS, WITH MICROSCOPIC Lab Routine Stage 5 chronic kidney disease not on chronic dialysis (HCC) Expected: 10/09/2024, Expires: 01/08/2025 [facility] Comment on above: Expected: 10/09/2024, Expires: Start: 10-08-2024 Complete blood count Hemoglobin/Hematocrit [facility] Start: 10-08-2024 Creatinine measurement Serum Creatinine [facility] Start: 10-05-2024 Hemoglobin A1c measurement Diabetes: Hemoglobin A1C [facility] Start: 09-30-2024 Diabetes: Estimated Glomerular Filtration Rate for Kidney Health Diabetes: Estimated Glomerular Filtration Rate for Kidney Health [facility] Start: 09-27-2024 End: 09-27-2024 Patient encounter procedure 09/27/2024 2:45 PM EDT Office Visit [facility] [address] [facility], [place] [address] Renetta Gannon MD [address] [facility] [place] [address] RTC 9 months diabetic check [facility] Comment on above: RTC 9 months diabetic check Start: 07-24-2024 End: 10-23-2024 25-hydroxyvitamin D3 [Mass/volume] in Serum or Plasma VITAMIN D 25 HYDROXY Lab Routine Stage 3b chronic kidney disease (HCC) Vitamin D deficiency Expected: 07/24/2024, Expires: 10/23/2024 [facility] Comment on above: Expected: 07/24/2024, Expires: Start: 07-24-2024 End: 10-23-2024 CBC W Auto Differential panel - Blood COMPLETE BLOOD COUNT AND DIFFERENTIAL Lab Routine Anemia of renal disease Stage 3b chronic kidney disease (HCC) Expected: 07/24/2024, Expires: 10/23/2024 [facility] Comment on above: Expected: 07/24/2024, Expires: Start: 07-24-2024 End: 10-23-2024 Magnesium [Mass/volume] in Serum or Plasma MAGNESIUM Lab Routine Stage 3b chronic kidney disease (HCC) Expected: 07/24/2024, Expires: 10/23/2024 [facility] Comment on above: Expected: 07/24/2024, Expires: Start: 07-24-2024 End: 10-23-2024 Microalbumin/Creatinine [Mass Ratio] in Urine ALBUMIN/CREATININE RATIO, URINE Lab Routine Stage 3b chronic kidney disease (HCC) Other proteinuria Expected: 07/24/2024, Expires: 10/23/2024 [facility] Comment on above: Expected: 07/24/2024, Expires: Start: 07-24-2024 End: 10-23-2024 Parathyrin.intact [Mass/volume] in Serum or Plasma PTH INTACT Lab Routine Stage 3b chronic kidney disease (HCC) Expected: 07/24/2024, Expires: 10/23/2024 [facility] Comment on above: Expected: 07/24/2024, Expires: Start: 07-24-2024 End: 10-23-2024 Renal function 2000 panel - Serum or Plasma RENAL FUNCTION PANEL Lab Routine Stage 3b chronic kidney disease (HCC) Expected: 07/24/2024, Expires: 10/23/2024 [facility] Comment on above: Expected: 07/24/2024, Expires: Start: 07-24-2024 End: 10-23-2024 Urate [Mass/volume] in Serum or Plasma URIC ACID Lab Routine Stage 3b chronic kidney disease (HCC) Expected: 07/24/2024, Expires: 10/23/2024 [facility] Comment on above: Expected: 07/24/2024, Expires: Start: 07-24-2024 End: 10-23-2024 Urinalysis complete panel - Urine URINALYSIS, WITH MICROSCOPIC Lab Routine Stage 3b chronic kidney disease (HCC) Expected: 07/24/2024, Expires: 10/23/2024 [facility] Comment on above: Expected: 07/24/2024, Expires: Start: 07-12-2024 End: 07-12-2024 Renal biopsy prq trocar/needle BIOPSY KIDNEY PERCUTANEOUS Kidney disease 07/12/2024 1:53 PM EDT [facility] Start: 07-11-2024 End: 10-10-2024 PSA/PROSTATE SPECIFIC ANTIGEN SCREENING PSA/PROSTATE SPECIFIC ANTIGEN SCREENING Lab Routine Nocturia Benign prostatic hyperplasia with nocturia Screening PSA (prostate specific antigen) Expected: 07/11/2024 (Approximate), Expires: 10/10/2024 [facility] Work Phone: Comment on above: Expected: 07/11/2024 (Approximate), Expi res: 10/10/2024 Start: 07-10-2024 End: 07-10-2024 Patient encounter procedure [facility] [place] Comment on above: 6 mo f/u Start: 07-04-2024 End: 10-03-2024 25-hydroxyvitamin D3 [Mass/volume] in Serum or Plasma VITAMIN D 25 HYDROXY Lab Routine Stage 3b chronic kidney disease (HCC) Vitamin D deficiency Expected: 07/04/2024, Expires: 10/03/2024 [facility] Comment on above: Expected: 07/04/2024, Expires: Start: 07-04-2024 End: 10-03-2024 CBC W Auto Differential panel - Blood COMPLETE BLOOD COUNT AND DIFFERENTIAL Lab Routine Anemia of renal disease Stage 3b chronic kidney disease (HCC) Expected: 07/04/2024, Expires: 10/03/2024 [facility] Comment on above: Expected: 07/04/2024, Expires: Start: 07-04-2024 End: 10-03-2024 Magnesium [Mass/volume] in Serum or Plasma MAGNESIUM Lab Routine Stage 3b chronic kidney disease (HCC) Expected: 07/04/2024, Expires: 10/03/2024 [facility] Comment on above: Expected: 07/04/2024, Expires: Start: 07-04-2024 End: 10-03-2024 Microalbumin/Creatinine [Mass Ratio] in Urine ALBUMIN/CREATININE RATIO, URINE Lab Routine Stage 3b chronic kidney disease (HCC) Other proteinuria Expected: 07/04/2024, Expires: 10/03/2024 [facility] Work Phone: Comment on above: Expected: 07/04/2024, Expires: Start: 07-04-2024 End: 10-03-2024 Parathyrin.intact [Mass/volume] in Serum or Plasma PTH INTACT Lab Routine Stage 3b chronic kidney disease (HCC) Chronic kidney disease-mineral and bone disorder Expected: 07/04/2024, Expires: 10/03/2024 [facility] Comment on above: Expected: 07/04/2024, Expires: Start: 07-04-2024 End: 10-03-2024 Renal function 2000 panel - Serum or Plasma RENAL FUNCTION PANEL Lab Routine Stage 3b chronic kidney disease (HCC) Expected: 07/04/2024, Expires: 10/03/2024 [facility] Comment on above: Expected: 07/04/2024, Expires: Start: 07-04-2024 End: 10-03-2024 Urate [Mass/volume] in Serum or Plasma URIC ACID Lab Routine Stage 3b chronic kidney disease (HCC) Expected: 07/04/2024, Expires: 10/03/2024 [facility] Comment on above: Expected: 07/04/2024, Expires: Start: 07-04-2024 End: 10-03-2024 Urinalysis complete panel - Urine URINALYSIS, WITH MICROSCOPIC Lab Routine Stage 3b chronic kidney disease (HCC) Other proteinuria Expected: 07/04/2024, Expires: 10/03/2024 [facility] Comment on above: Expected: 07/04/2024, Expires: Start: 06-12-2024 Creatinine measurement Serum Creatinine [facility] Start: 06-03-2024 Complete blood count Hemoglobin/Hematocrit [facility] Start: 05-24-2024 Diabetes: Urine Albumin-Creatinine Ratio for Kidney [facility] Diabetes: Urine Albumin-Creatinine Ratio for Kidney Health [facility] Start: 05-24-2024 Hepatitis B screening Urine Albumin:Creatinine Ratio [facility] Start: 05-23-2024 Complete blood count Hemoglobin/Hematocrit [facility] Start: 05-23-2024 Creatinine measurement Serum Creatinine [facility] Start: 05-13-2024 End: 05-13-2024 Patient encounter procedure [facility] Start: 04-07-2024 Hemoglobin A1c measurement HbA1C [facility] Start: 04-03-2024 Medicare Advantage Annual Wellness Visit Medicare Advantage Annual Wellness Visit [facility] Start: 01-24-2024 End: 01-24-2024 Patient encounter procedure 01/24/2024 1:30 PM EDT Office Visit [facility] [place] [address] [facility] [address] [place] [address] Jose Dudley MD [address] [facility] [address] [place] [address] 4 mo f/u [facility] [place] Comment on above: 4 mo f/u Start: 01-22-2024 End: 01-22-2024 Patient encounter procedure 01/22/2024 1:45 PM EDT Office Visit Urology [address] [place] [address] Noé Kennedy MD [address] [place] [address] 6 month folllow up psa prior Urology Comment on above: 6 month folllow up psa prior Start: 01-19-2024 End: 04-19-2024 25-hydroxyvitamin D3 [Mass/volume] in Serum or Plasma VITAMIN D 25 HYDROXY Lab Routine Anemia of renal disease Stage 3b chronic kidney disease (HCC) Vitamin D deficiency Other proteinuria Expected: 01/19/2024, Expires: 04/19/2024 [facility] Comment on above: Expected: 01/19/2024, Expires: Start: 01-19-2024 End: 04-19-2024 CBC W Auto Differential panel - Blood COMPLETE BLOOD COUNT AND DIFFERENTIAL Lab Routine Anemia of renal disease Stage 3b chronic kidney disease (HCC) Vitamin D deficiency Other proteinuria Expected: 01/19/2024, Expires: 04/19/2024 [facility] Comment on above: Expected: 01/19/2024, Expires: Start: 01-19-2024 End: 04-19-2024 Magnesium [Mass/volume] in Serum or Plasma MAGNESIUM Lab Routine Anemia of renal disease Stage 3b chronic kidney disease (HCC) Vitamin D deficiency Other proteinuria Expected: 01/19/2024, Expires: 04/19/2024 [facility] Comment on above: Expected: 01/19/2024, Expires: Start: 01-19-2024 End: 04-19-2024 Microalbumin/Creatinine [Mass Ratio] in Urine ALBUMIN/CREATININE RATIO, URINE Lab Routine Anemia of renal disease Stage 3b chronic kidney disease (HCC) Vitamin D deficiency Other proteinuria Expected: 01/19/2024, Expires: 04/19/2024 [facility] Work Phone: Comment on above: Expected: 01/19/2024, Expires: Start: 01-19-2024 End: 04-19-2024 Parathyrin.intact [Mass/volume] in Serum or Plasma PTH INTACT Lab Routine Anemia of renal disease Stage 3b chronic kidney disease (HCC) Vitamin D deficiency Other proteinuria Expected: 01/19/2024, Expires: 04/19/2024 [facility] Comment on above: Expected: 01/19/2024, Expires: Start: 01-19-2024 End: 04-19-2024 Renal function 2000 panel - Serum or Plasma RENAL FUNCTION PANEL Lab Routine Anemia of renal disease Stage 3b chronic kidney disease (HCC) Vitamin D deficiency Other proteinuria Expected: 01/19/2024, Expires: 04/19/2024 [facility] Comment on above: Expected: 01/19/2024, Expires: Start: 01-19-2024 End: 04-19-2024 Urate [Mass/volume] in Serum or Plasma URIC ACID Lab Routine Anemia of renal disease Stage 3b chronic kidney disease (HCC) Vitamin D deficiency Other proteinuria Expected: 01/19/2024, Expires: 04/19/2024 [facility] Comment on above: Expected: 01/19/2024, Expires: Start: 01-19-2024 End: 04-19-2024 Urinalysis complete panel - Urine URINALYSIS, WITH MICROSCOPIC Lab Routine Anemia of renal disease Stage 3b chronic kidney disease (HCC) Vitamin D deficiency Other proteinuria Expected: 01/19/2024, Expires: 04/19/2024 [facility] Comment on above: Expected: 01/19/2024, Expires: Start: 01-08-2024 End: 04-08-2024 PSA/PROSTATE SPECIFIC ANTIGEN SCREENING PSA/PROSTATE SPECIFIC ANTIGEN SCREENING Lab Routine Nocturia Benign prostatic hyperplasia with nocturia Screening PSA (prostate specific antigen) Expected: 01/08/2024 (Approximate), Expires: 04/08/2024 [facility] Work Phone: Comment on above: Expected: 01/08/2024 (Approximate), Expi res: 04/08/2024 Start: 12-30-2023 Glaucoma screening Dilated Retinal Exam [facility] Start: 12-30-2023 Hepatitis C antibody, confirmatory test Dilated Retinal Exam [facility] Start: 12-29-2023 End: 12-29-2023 Patient encounter procedure 12/29/2023 2:45 PM EDT Office Visit [facility] [address] [place] [address] Renetta Gannon MD [address] [place] [address] RTC 9 months diabetic check [facility] Comment on above: RTC 9 months diabetic check Start: 12-24-2023 Annual PCP Team Chronic Disease Visit Annual PCP Team Chronic Disease Visit [facility] Start: 12-03-2023 Covid-19 Vaccine () Covid-19 Vaccine () [facility] Start: 12-03-2023 Covid-19 Vaccine () Covid-19 Vaccine () [facility] Start: 12-03-2023 Influenza vaccination [facility] Start: 11-21-2023 End: 11-21-2023 Home visit 11/21/2023 2:30 PM EDT OT/PT/Speech Visit [facility] [address] [place] [address] Zafar Aguilar, PT, DPT Post laminectomy/D/C FROM [facility] Comment on above: Post l[facility]/D[facility] Start: 11-16-2023 End: 11-16-2023 Home visit [facility] Comment on above: [id number] [place] post laminectomy. DM Wound has a slight amount of drainage, pt on cephalexin. Wound assessment. ?disc dc vs agency dc? Check on therapy plan. Start: 11-10-2023 End: 11-10-2023 Home visit [facility] Comment on above: [id number] [place] post laminectomy. DM Wound has a slight amount of drainage, pt was on cephalexin. Wound assessment. Next to last SN vs, check on therapy plan. ?NOMNC? Start: 11-07-2023 End: 11-07-2023 Home visit [facility] Comment on above: [id number] [place] post laminectomy. DM Wound has a slight amount of drainage, pt on cephalexin. Wound assessment. Please see SOC notes for full info. Start: 11-05-2023 ANNUAL PCP TEAM CHRONIC DISEASE VISIT ANNUAL PCP TEAM CHRONIC DISEASE VISIT [facility] Start: 11-03-2023 End: 11-03-2023 Home visit [facility] Comment on above: [id number] [place] post laminectomy. DM Wound has a slight amount of drainage, pt was on cephalexin. Wound assessment. Please see SOC notes for full info. Start: 11-02-2023 Complete blood count Hemoglobin/Hematocrit [facility] Start: 11-02-2023 Creatinine measurement Serum Creatinine [facility] Start: 11-02-2023 HEMOGLOBIN/HEMATOCRIT HEMOGLOBIN/HEMATOCRIT [facility] Start: 11-02-2023 Hepatitis B surface antibody level LDL CHOLESTEROL [facility] Start: 11-02-2023 SERUM CREATININE SERUM CREATININE [facility] Start: 10-31-2023 End: 10-31-2023 Home visit [facility] Comment on above: [id number] [place] post laminectomy. DM Wound has a slight amount of drainage, pt was on cephalexin. Wound assessment. Please see SOC notes for full info. Start: 10-30-2023 End: 10-30-2023 Patient encounter procedure 10/30/2023 11:00 AM EDT Office Visit Endocrinology [id number] [place] [address] Ginny Montalvo, CASKET UPHOLSTERER.PRODUCTION INTERN [address] [place] [address] diabetes follow up Endocrinology Comment on above: diabetes follow up Start: 10-28-2023 End: 10-28-2023 Home visit 10/28/2023 12:00 PM EDT Home Care Visit [facility] [address] [place] [address] Zohaib Abel, PT [address] [place] [address] CONFIRMED FOR SAT 10/27 [id number] PTE 10/22-10/26 - TRACI, PIERO CALL MADE Confirmed 11:30 to 12 [facility] Comment on above: CONFIRMED FOR SAT 10/27 - [id number] PTE 10/02 2-10/26 - KNUPP, DELAY CALL MADE Confirmed 11:30 to 12 Start: 10-27-2023 End: 10-27-2023 Home visit [facility] Comment on above: [id number] PTE - KNUPP [id number] OTE 6 - FERNANDA Start: 10-26-2023 End: 10-26-2023 Home visit [facility] Comment on above: [id number] [place] post laminectomy. Wound bartholomew s a slight amount of drainage, pt on cephalexin. Wound assessment and labs due. Please see SOC notes for full info. Start: 10-25-2023 End: 10-25-2023 Home visit [facility] Comment on above: [id number] OTE PASS TO T. 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 [id number] PTE [facility] Start: 10-22-2023 Hepatitis C antibody, confirmatory test DILATED RETINAL EXAM [facility] Start: 10-22-2023 End: 10-22-2023 Patient encounter procedure [facility] Comment on above: [id number] CM: Richard HINDS [id number] CM: Richard HINDS 10/19- DID NOT CONFIRM Radiculopathy, lumbar region Start: 10-20-2023 End: 10-20-2023 Patient encounter procedure [facility] Comment on above: RTC 9 months diabetic check Start: 09-29-2023 ANNUAL PCP TEAM CHRONIC DISEASE VISIT ANNUAL PCP TEAM CHRONIC DISEASE VISIT [facility] Start: 09-22-2023 End: 06-21-2024 25-hydroxyvitamin D3 [Mass/volume] in Serum or Plasma VITAMIN D 25 HYDROXY Lab Routine Vitamin D deficiency Expected: 09/22/2023, Expires: 06/21/2024 [facility] Work Phone: Comment on above: Expected: 09/22/2023, Expires: 5 Start: 09-22-2023 End: 12-22-2023 ALBUMIN/CREAT RATIO RND UR ALBUMIN/CREAT RATIO RND UR Lab Routine Other proteinuria Expected: 09/22/2023, Expires: 12/22/2023 [facility] Work Phone: Comment on above: Expected: 09/22/2023, Expires: 4 Start: 09-22-2023 End: 06-21-2024 CBC W Auto Differential panel - Blood CBC + DIFF Lab Routine Anemia of renal disease Expected: 09/22/2023, Expires: 06/21/2024 [facility] Work Phone: Comment on above: Expected: 09/22/2023, Expires: 5 Start: 09-22-2023 End: 06-21-2024 Magnesium [Mass/volume] in Serum or Plasma MAGNESIUM BLD Lab Routine Stage 3b chronic kidney disease (HCC) Expected: 09/22/2023, Expires: 06/21/2024 [facility] Work Phone: Comment on above: Expected: 09/22/2023, Expires: 5 Start: 09-22-2023 End: 06-21-2024 Parathyrin.intact [Mass/volume] in Serum or Plasma PTH INTACT BLD Lab Routine Stage 3b chronic kidney disease (HCC) Expected: 09/22/2023, Expires: 06/21/2024 [facility] Work Phone: Comment on above: Expected: 09/22/2023, Expires: 5 Start: 09-22-2023 End: 06-21-2024 Renal function 2000 panel - Serum or Plasma RENAL FUNCTION PANEL Lab Routine Stage 3b chronic kidney disease (HCC) Expected: 09/22/2023, Expires: 06/21/2024 [facility] Work Phone: Comment on above: Expected: 09/22/2023, Expires: 5 Start: 09-22-2023 End: 06-21-2024 Urate [Mass/volume] in Serum or Plasma URIC ACID BLOOD Lab Routine Stage 3b chronic kidney disease (HCC) Expected: 09/22/2023, Expires: 06/21/2024 [facility] Work Phone: Comment on above: Expected: 09/22/2023, Expires: 5 Start: 09-22-2023 End: 12-22-2023 Urinalysis complete panel - Urine URINALYSIS, WITH MICROSCOPIC Lab Routine Stage 3b chronic kidney disease (HCC) Expected: 09/22/2023, Expires: 12/22/[address] [facility] Work Phone: Comment on above: Expected: 09/22/2023, Expires: 4 Start: 09-17-2023 ANNUAL PCP TEAM CHRONIC DISEASE VISIT ANNUAL PCP TEAM CHRONIC DISEASE VISIT [facility] Start: 09-17-2023 SERUM CREATININE SERUM CREATININE [facility] Start: 09-16-2023 HEMOGLOBIN/HEMATOCRIT HEMOGLOBIN/HEMATOCRIT [facility] Start: 08-21-2023 Hemoglobin A1c measurement HbA1C [facility] Start: 08-13-2023 3 comp foot exam completed DIABETIC FOOT EXAM [facility] Start: 08-13-2023 ANNUAL PCP TEAM CHRONIC DISEASE VISIT ANNUAL PCP TEAM CHRONIC DISEASE VISIT [facility] Start: 08-13-2023 COVID-19 VACCINE (#1) COVID-19 VACCINE (#1) [facility] Comment on above: Postponed from 05/31/1960 (Declined at t his time) Start: 08-13-2023 Diabetic foot examination Diabetic Foot Exam [facility] Start: 08-13-2023 PNEUMOCOCCAL (2 - PCV) PNEUMOCOCCAL (2 - PCV) [facility] Start: 08-13-2023 Pneumococcal vaccination [facility] Start: 08-13-2023 Pneumococcal Vaccine: 50+ (2 of 2 - PCV) Pneumococcal Vaccine: 50+ (2 of 2 - PCV) [facility] Start: 08-13-2023 Pneumococcal Vaccine: 50+ Years (2 of 2 - PCV) Pneumococcal Vaccine: 50+ Years (2 of 2 - PCV) [facility] Start: 07-15-2023 Hepatitis C antibody, confirmatory test DILATED RETINAL EXAM [facility] Start: 07-12-2023 End: 10-11-2023 PSA/PROSTATE SPECIFIC ANTIGEN SCREENING PSA/PROSTATE SPECIFIC ANTIGEN SCREENING Lab Routine Nocturia Benign prostatic hyperplasia with nocturia Screening PSA (prostate specific antigen) Expected: 07/12/2023, Expires: 10/11/2023 [facility] Work Phone: Comment on above: Expected: 07/12/2023, Expires: 4 Start: 06-30-2023 ANNUAL PCP TEAM CHRONIC DISEASE VISIT ANNUAL PCP TEAM CHRONIC DISEASE VISIT [facility] Start: 06-28-2023 Hepatitis B surface antibody level LDL CHOLESTEROL [facility] Start: 06-28-2023 SERUM CREATININE SERUM CREATININE [facility] Start: 06-23-2023 Influenza vaccination LUNG CANCER SCREENING [facility] Start: 06-23-2023 Screening for malignant neoplasm of lung Lung Cancer Screening [facility] Start: 06-20-2023 End: 09-19-2023 25-hydroxyvitamin D3 [Mass/volume] in Serum or Plasma VITAMIN D 25 HYDROXY Lab Routine Stage 3a chronic kidney disease (HCC) Hypertension, essential Vitamin D deficiency Expected: 06/20/2023, Expires: 09/19/2023 [facility] Work Phone: Comment on above: Expected: 06/20/2023, Expires: 4 Start: 06-20-2023 End: 09-19-2023 ALBUMIN/CREAT RATIO RND UR ALBUMIN/CREAT RATIO RND UR Lab Routine Stage 3a chronic kidney disease (HCC) Hypertension, essential Other proteinuria Expected: 06/20/2023, Expires: 09/19/2023 [facility] Work Phone: Comment on above: Expected: 06/20/2023, Expires: 4 Start: 06-20-2023 End: 09-19-2023 CBC W Auto Differential panel - Blood CBC + DIFF Lab Routine Stage 3a chronic kidney disease (HCC) Hypertension, essential Expected: 06/20/2023, Expires: 09/19/2023 [facility] Work Phone: Comment on above: Expected: 06/20/2023, Expires: 4 Start: 06-20-2023 End: 09-19-2023 Magnesium [Mass/volume] in Serum or Plasma MAGNESIUM BLD Lab Routine Stage 3a chronic kidney disease (HCC) Hypertension, essential Expected: 06/20/2023, Expires: 09/19/2023 [facility] Work Phone: Comment on above: Expected: 06/20/2023, Expires: Start: 06-20-2023 End: 09-19-2023 Parathyrin.intact [Mass/volume] in Serum or Plasma PTH INTACT BLD Lab Routine Stage 3a chronic kidney disease (HCC) Hypertension, essential Secondary hyperparathyroidism (HCC) Expected: 06/20/2023, Expires: 09/19/2023 [facility] Work Phone: Comment on above: Expected: 06/20/2023, Expires: 4 Start: 06-20-2023 End: 09-19-2023 Renal function 2000 panel - Serum or Plasma RENAL FUNCTION PANEL Lab Routine Stage 3a chronic kidney disease (HCC) Hypertension, essential Expected: 06/20/2023, Expires: 09/19/2023 [facility] Work Phone: Comment on above: Expected: 06/20/2023, Expires: 4 Start: 06-20-2023 End: 09-19-2023 Urate [Mass/volume] in Serum or Plasma URIC ACID BLOOD Lab Routine Stage 3a chronic kidney disease (HCC) Hypertension, essential Expected: 06/20/2023, Expires: 09/19/2023 [facility] Work Phone: Comment on above: Expected: 06/20/2023, Expires: 4 Start: 06-20-2023 End: 09-19-2023 Urinalysis complete panel - Urine URINALYSIS, WITH MICROSCOPIC Lab Routine Stage 3a chronic kidney disease (HCC) Hypertension, essential Other proteinuria Expected: 06/20/2023, Expires: 09/19/2023 [facility] Work Phone: Comment on above: Expected: 06/20/2023, Expires: 4 Start: 06-02-2023 HEMOGLOBIN/HEMATOCRIT HEMOGLOBIN/HEMATOCRIT [facility] Start: 06-02-2023 SERUM CREATININE SERUM CREATININE [facility] Start: 05-18-2023 ANNUAL PCP TEAM CHRONIC DISEASE VISIT ANNUAL PCP TEAM CHRONIC DISEASE VISIT [facility] Start: 05-09-2023 End: 07-09-2023 ALBUMIN/CREAT RATIO RND UR ALBUMIN/CREAT RATIO RND UR Lab Routine Diabetes mellitus due to underlying condition, uncontrolled, with hyperglycemia (HCC) Expected: 05/09/2023, Expires: 07/09/2023 [facility] Work Phone: Comment on above: Expected: 05/09/2023, Expires: 4 Start: 04-13-2023 ANNUAL PCP TEAM CHRONIC DISEASE VISIT ANNUAL PCP TEAM CHRONIC DISEASE VISIT [facility] Start: 04-03-2023 Medicare Advantage Annual Wellness Visit Medicare Advantage Annual Wellness Visit [facility] Start: 04-01-2023 SERUM CREATININE SERUM CREATININE [facility] Start: 03-21-2023 Hepatitis B surface antibody level LDL CHOLESTEROL [facility] Start: 03-01-2023 ANNUAL PCP TEAM CHRONIC DISEASE VISIT ANNUAL PCP TEAM CHRONIC DISEASE VISIT [facility] Start: 02-16-2023 DIABETES SCREEN DIABETES SCREEN [facility] Start: 02-12-2023 End: 04-14-2023 ALBUMIN/CREAT RATIO RND UR ALBUMIN/CREAT RATIO RND UR Lab Routine Microalbuminuria Expected: 02/12/2023, Expires: 04/14/2023 [facility] Work Phone: Comment on above: Expected: 02/12/2023, Expires: 4 Start: 02-01-2023 Hemoglobin A1c measurement HbA1C [facility] Start: 02-01-2023 Hemoglobin A1c/Hemoglobin.total in Blood HBA1C [facility] Start: 01-26-2023 SERUM CREATININE SERUM CREATININE [facility] Start: 01-23-2023 Hepatitis B screening URINE ALBUMIN:CREATININE RATIO [facility] Start: 01-20-2023 Hepatitis B surface antibody level LDL CHOLESTEROL [facility] Start: 01-20-2023 SERUM CREATININE SERUM CREATININE [facility] Start: 01-18-2023 SERUM CREATININE SERUM CREATININE [facility] Start: 01-17-2023 SERUM CREATININE SERUM CREATININE [facility] Start: 01-03-2023 ANNUAL PCP TEAM CHRONIC DISEASE VISIT ANNUAL PCP TEAM CHRONIC DISEASE VISIT [facility] Start: 01-03-2023 Hepatitis B surface antibody level LDL CHOLESTEROL [facility] Start: 01-03-2023 SERUM CREATININE SERUM CREATININE [facility] Start: 12-06-2022 End: 02-05-2023 Carcinoembryonic Ag [Mass/volume] in Serum or Plasma CEA BLD Lab Routine History of rectal cancer Expected: 12/06/2022 (Approximate), Expires: 02/05/2023 [facility] Work Phone: Comment on above: Expected: 12/06/2022 (Approximate), Expi res: 02/05/2023 Start: 12-06-2022 End: 02-05-2023 CBC W Auto Differential panel - Blood CBC + DIFF Lab Routine History of rectal cancer Expected: 12/06/2022 (Approximate), Expires: 02/05/2023 [facility] Work Phone: Comment on above: Expected: 12/06/2022 (Approximate), Expi res: 02/05/2023 Start: 12-06-2022 End: 02-05-2023 Comprehensive metabolic 2000 panel - Serum or Plasma COMP METABOLIC PANEL Lab Routine History of rectal cancer Expected: 12/06/2022 (Approximate), Expires: 02/05/2023 [facility] Work Phone: Comment on above: Expected: 12/06/2022 (Approximate), Expi res: 02/05/2023 Start: 2022 Covid-19 Vaccine ( season) Covid-19 Vaccine () [facility] Start: 2022 Influenza vaccination [facility] Start: 11-05-2022 ANNUAL PCP TEAM CHRONIC DISEASE VISIT ANNUAL PCP TEAM CHRONIC DISEASE VISIT [facility] Start: 11-05-2022 Hepatitis C antibody, confirmatory test DILATED RETINAL EXAM [facility] Start: 10-05-2022 ANNUAL PCP TEAM CHRONIC DISEASE VISIT ANNUAL PCP TEAM CHRONIC DISEASE VISIT [facility] Start: 10-05-2022 BP CONTROLLED (<130/80) BP CONTROLLED (<130/80) [facility] Start: 10-05-2022 COLORECTAL CANCER SCREENING COLORECTAL CANCER SCREENING [facility] Comment on above: Postponed from 12/01/2004 (Declined at t his time) Start: 09-29-2022 Hemoglobin A1c/Hemoglobin.total in Blood HBA1C [facility] Start: 09-20-2022 ANNUAL PCP TEAM CHRONIC DISEASE VISIT ANNUAL PCP TEAM CHRONIC DISEASE VISIT [facility] Start: 09-20-2022 Hepatitis B surface antibody level LDL CHOLESTEROL [facility] Start: 09-06-2022 HEMOGLOBIN/HEMATOCRIT HEMOGLOBIN/HEMATOCRIT [facility] Start: 08-15-2022 Hemoglobin A1c/Hemoglobin.total in Blood HBA1C [facility] Start: 08-12-2022 End: 05-09-2023 25-hydroxyvitamin D3 [Mass/volume] in Serum or Plasma VITAMIN D 25 HYDROXY Lab Routine Vitamin D deficiency Expected: 08/12/2022, Expires: 05/09/2023 [facility] Work Phone: Comment on above: Expected: 08/12/2022, Expires: 4 Start: 08-12-2022 End: 10-12-2022 CBC W Auto Differential panel - Blood CBC + DIFF Lab Routine Screening for deficiency anemia Expected: 08/12/2022, Expires: 10/12/2022 [facility] Work Phone: Comment on above: Expected: 08/12/2022, Expires: 3 Start: 08-12-2022 End: 10-12-2022 Comprehensive metabolic 2000 panel - Serum or Plasma COMP METABOLIC PANEL Lab Routine Hypertension, essential Expected: 08/12/2022, Expires: 10/12/2022 [facility] Work Phone: Comment on above: Expected: 08/12/2022, Expires: 3 Start: 08-12-2022 End: 10-12-2022 Hemoglobin A1c in Blood HGB A1C Lab Routine Diabetes mellitus due to underlying condition, uncontrolled, with hyperglycemia (HCC) Expected: 08/12/2022, Expires: 10/12/2022 [facility] Work Phone: Comment on above: Expected: 08/12/2022, Expires: 3 Start: 08-12-2022 End: 10-12-2022 Lipid 1996 panel - Serum or Plasma LIPID PANEL BASIC Lab Routine Mixed hyperlipidemia Expected: 08/12/2022, Expires: 10/12/2022 [facility] Work Phone: Comment on above: Expected: 08/12/2022, Expires: 3 Start: 08-12-2022 End: 10-12-2022 PSA/PROSTSPECAG SCRN PSA/PROSTSPECAG SCRN Lab Routine Screening for prostate cancer Expected: 08/12/2022, Expires: 10/12/2022 [facility] Work Phone: Comment on above: Expected: 08/12/2022, Expires: 3 Start: 08-12-2022 End: 10-12-2022 Thyrotropin [Units/volume] in Serum or Plasma TSH BLD Lab Routine Hyponatremia Screening for thyroid disorder Expected: 08/12/2022, Expires: 10/12/2022 [facility] Work Phone: Comment on above: Expected: 08/12/2022, Expires: 3 Start: 08-11-2022 ANNUAL PCP TEAM CHRONIC DISEASE VISIT ANNUAL PCP TEAM CHRONIC DISEASE VISIT [facility] Start: 08-11-2022 BP CONTROLLED (<130/80) BP CONTROLLED (<130/80) [facility] Start: 08-05-2022 COVID-19 VACCINE (#1) COVID-19 VACCINE (#1) [facility] Comment on above: Postponed from 12/01/1964 (Declined at t his time) Postponed from 05/31 (Declined at this time) Start: 08-05-2022 COVID-19 VACCINE (1) COVID-19 VACCINE (1) [facility] Comment on above: Postponed from 12/01/1964 (Declined at t his time) Start: 08-05-2022 ONE PNEUMOVAX PRIOR TO AGE 65 ONE PNEUMOVAX PRIOR TO AGE 64 [facility] Comment on above: Postponed from 1975 (Declined at t his time) Start: 08-05-2022 PNEUMOCOCCAL (1 - PCV) PNEUMOCOCCAL (1 - PCV) [facility] Comment on above: Postponed from 12/01/1965 (Declined at t his time) Start: 08-02-2022 End: 10-02-2022 ALBUMIN/CREAT RATIO RND UR ALBUMIN/CREAT RATIO RND UR Lab Routine Microalbuminuria Expected: 08/02/2022, Expires: 10/02/2022 [facility] Work Phone: Comment on above: Expected: 08/02/2022, Expires: Start: 07-12-2022 Hemoglobin A1c/Hemoglobin.total in Blood HBA1C [facility] Start: 07-05-2022 ANNUAL PCP TEAM CHRONIC DISEASE VISIT ANNUAL PCP TEAM CHRONIC DISEASE VISIT [facility] Start: 07-05-2022 Hepatitis B screening URINE ALBUMIN:CREATININE RATIO [facility] Start: 07-05-2022 Hepatitis B surface antibody level LDL CHOLESTEROL [facility] Start: 06-02-2022 3 comp foot exam completed DIABETIC FOOT EXAM [facility] Start: 06-02-2022 ANNUAL PCP TEAM CHRONIC DISEASE VISIT ANNUAL PCP TEAM CHRONIC DISEASE VISIT [facility] Start: 05-31-2022 Hemoglobin A1c/Hemoglobin.total in Blood HBA1C [facility] Start: 05-18-2022 End: 02-12-2023 25-hydroxyvitamin D3 [Mass/volume] in Serum or Plasma VITAMIN D 25 HYDROXY Lab Routine Vitamin D deficiency Expected: 05/18/2022, Expires: 02/12/2023 [facility] Work Phone: Comment on above: Expected: 05/18/2022, Expires: 3 Start: 05-18-2022 End: 07-18-2022 Comprehensive metabolic 2000 panel - Serum or Plasma COMP METABOLIC PANEL Lab Routine Hypertension, essential Hyponatremia Stage 3a chronic kidney disease (HCC) Expected: 05/18/2022, Expires: 07/18/2022 [facility] Work Phone: Comment on above: Expected: 05/18/2022, Expires: 3 Start: 05-18-2022 End: 07-18-2022 Lipid 1996 panel - Serum or Plasma LIPID PANEL BASIC Lab Routine Mixed hyperlipidemia Expected: 05/18/2022, Expires: 07/18/2022 [facility] Work Phone: Comment on above: Expected: 05/18/2022, Expires: 3 Start: 05-18-2022 End: 07-18-2022 Thyrotropin [Units/volume] in Serum or Plasma TSH BLD Lab Routine Hypertension, essential Expected: 05/18/2022, Expires: 07/18/2022 [facility] Work Phone: Comment on above: Expected: 05/18/2022, Expires: 3 Start: 04-09-2022 Hepatitis B screening URINE ALBUMIN:CREATININE RATIO [facility] Start: 04-09-2022 Hepatitis B surface antibody level LDL CHOLESTEROL [facility] Start: 04-05-2022 Hemoglobin A1c/Hemoglobin.total in Blood HBA1C [facility] Start: 03-01-2022 End: 11-26-2022 25-hydroxyvitamin D3 [Mass/volume] in Serum or Plasma VITAMIN D 25 HYDROXY Lab Routine Vitamin D deficiency Expected: 03/01/2022, Expires: 11/26/2022 [facility] Work Phone: Comment on above: Expected: 03/01/2022, Expires: 3 Start: 03-01-2022 End: 05-01-2022 Lipid 1996 panel - Serum or Plasma LIPID PANEL BASIC Lab Routine Mixed hyperlipidemia Expected: 03/01/2022, Expires: 05/01/2022 [facility] Work Phone: Comment on above: Expected: 03/01/2022, Expires: 3 Start: 02-05-2022 Hemoglobin A1c/Hemoglobin.total in Blood HBA1C [facility] Start: 01-05-2022 Hemoglobin A1c/Hemoglobin.total in Blood HBA1C [facility] Start: 12-21-2021 Hemoglobin A1c/Hemoglobin.total in Blood HBA1C [facility] Start: 2021 Influenza vaccination INFLUENZA (#1) [facility] Start: 11-11-2021 Hemoglobin A1c/Hemoglobin.total in Blood HBA1C [facility] Start: 11-05-2021 End: 08-02-2022 25-hydroxyvitamin D3 [Mass/volume] in Serum or Plasma VITAMIN D 25 HYDROXY Lab Routine Vitamin D deficiency Expected: 11/05/2021, Expires: 08/02/2022 [facility] Work Phone: Comment on above: Expected: 11/05/2021, Expires: 3 Start: 11-05-2021 End: 08-02-2022 Basic metabolic 2000 panel - Serum or Plasma BASIC METABOLIC PNL Lab Routine Hyponatremia Expected: 11/05/2021, Expires: 08/02/2022 [facility] Work Phone: Comment on above: Expected: 11/05/2021, Expires: 3 Start: 11-05-2021 End: 01-05-2022 Lipid 1996 panel - Serum or Plasma LIPID PANEL BASIC Lab Routine Mixed hyperlipidemia Expected: 11/05/2021, Expires: 01/05/2022 [facility] Work Phone: Comment on above: Expected: 11/05/2021, Expires: 2 Start: 10-27-2021 End: 12-27-2021 PSA/PROSTSPECAG SCRN PSA/PROSTSPECAG SCRN Lab Routine Benign prostatic hyperplasia with nocturia Hematuria, microscopic Screening PSA (prostate specific antigen) Nocturia Expected: 10/27/2021, Expires: 12/27/2021 [facility] Work Phone: Comment on above: Expected: 10/27/2021, Expires: 2 Start: 10-05-2021 End: 12-05-2021 Clostridioides difficile toxin genes [Presence] in Stool by BETO with probe detection C. DIFFICILE PCR Lab Routine Diarrhea, unspecified type Expected: 10/05/2021, Expires: 12/05/2021 [facility] Work Phone: Comment on above: Expected: 10/05/2021, Expires: 2 Start: 10-05-2021 End: 12-05-2021 Gastrointestinal pathogens panel - Stool by Culture STOOL CULTURE/EIA Microbiology Routine Diarrhea, unspecified type Expected: 10/05/2021, Expires: 12/05/2021 [facility] Work Phone: Comment on above: Expected: 10/05/2021, Expires: 2 Start: 10-05-2021 End: 12-05-2021 Giardia lamblia+Cryptosporidium sp Ag [Presence] in Stool by Immunoassay CRYPTOSPORIDIUM AND GIARDIA ANTIGENS BY EIA Microbiology Routine Diarrhea, unspecified type Expected: 10/05/2021, Expires: 12/05/2021 [facility] Work Phone: Comment on above: Expected: 10/05/2021, Expires: 2 Start: 10-04-2021 Hemoglobin A1c/Hemoglobin.total in Blood HBA1C [facility] Start: 09-20-2021 End: 06-17-2022 25-hydroxyvitamin D3 [Mass/volume] in Serum or Plasma [facility] Work Phone: Comment on above: Expected: 09/20/2021, Expires: 3 Start: 09-20-2021 End: 06-17-2022 Comprehensive metabolic 2000 panel - Serum or Plasma [facility] Work Phone: Comment on above: Expected: 09/20/2021, Expires: 3 Start: 09-20-2021 End: 11-20-2021 Lipid 1996 panel - Serum or Plasma [facility] Work Phone: Comment on above: Expected: 09/20/2021, Expires: 2 Start: 09-20-2021 End: 11-20-2021 Thyrotropin [Units/volume] in Serum or Plasma [facility] Work Phone: Comment on above: Expected: 09/20/2021, Expires: 2 Start: 09-02-2021 Hemoglobin A1c/Hemoglobin.total in Blood HBA1C [facility] Start: 08-11-2021 BP CONTROLLED (<130/80) BP CONTROLLED (<130/80) [facility] Start: 08-11-2021 End: 05-08-2022 Comprehensive metabolic 2000 panel - Serum or Plasma COMP METABOLIC PANEL Lab Routine Elevated alkaline phosphatase level Elevated serum creatinine Hyperkalemia Expected: 08/11/2021, Expires: 05/08/2022 [facility] Work Phone: Comment on above: Expected: 08/11/2021, Expires: 3 Start: 08-11-2021 End: 10-11-2021 LIPID PANEL BASIC LIPID PANEL BASIC Lab Routine Mixed hyperlipidemia Expected: 08/11/2021, Expires: 10/11/2021 [facility] Work Phone: Comment on above: Expected: 08/11/2021, Expires: 2 Start: 08-05-2021 Influenza vaccination LUNG CANCER SCREENING [facility] Start: 07-31-2021 Hepatitis C antibody, confirmatory test DILATED RETINAL EXAM [facility] Start: 07-24-2021 Colonoscopy COLONOSCOPY [facility] Start: 07-24-2021 COLORECTAL CANCER SCREENING COLORECTAL CANCER SCREENING [facility] Start: 07-24-2021 Screening for malignant neoplasm of colon [facility] Start: 05-28-2021 Adult depression screening assessment DEPRESSION SCREENING [facility] Start: 05-28-2021 ANNUAL PCP TEAM CHRONIC DISEASE VISIT ANNUAL PCP TEAM CHRONIC DISEASE VISIT [facility] Start: 05-14-2021 Hepatitis B screening URINE ALBUMIN:CREATININE RATIO [facility] Start: 05-14-2021 Hepatitis B surface antibody level LDL CHOLESTEROL [facility] Start: 04-27-2021 ANNUAL PCP TEAM CHRONIC DISEASE VISIT ANNUAL PCP TEAM CHRONIC DISEASE VISIT [facility] Start: 03-23-2021 [object Object] DIABETIC FOOT EXAM [facility] Start: 03-23-2021 ANNUAL PCP TEAM CHRONIC DISEASE VISIT ANNUAL PCP TEAM CHRONIC DISEASE VISIT [facility] Start: 02-19-2021 ANNUAL PCP TEAM CHRONIC DISEASE VISIT ANNUAL PCP TEAM CHRONIC DISEASE VISIT [facility] Start: 02-16-2021 Hepatitis B screening URINE ALBUMIN:CREATININE RATIO [facility] Start: 02-16-2021 Hepatitis B surface antibody level LDL CHOLESTEROL [facility] Start: 02-13-2021 Adult depression screening assessment DEPRESSION SCREENING [facility] Start: 08-11-2020 HbA1c (Bld) [Mass fraction] HBA1C [facility] Start: 05-19-2020 HbA1c (Bld) [Mass fraction] HBA1C [facility] Start: 05-18-2020 SHINGRIX VACCINE (2 of 2) SHINGRIX VACCINE (2 of 2) [facility] Start: 04-27-2020 End: 04-27-2021 HbA1c (Bld) [Mass fraction] HGB A1C Lab Routine Diabetes mellitus due to underlying condition, uncontrolled, with hyperglycemia (HCC) Expected: 04/27/2020, Expires: 04/27/2021 [facility] Comment on above: Expected: 04/27/2020, Expires: 2 Start: 02-14-2020 End: 02-13-2021 HbA1c (Bld) [Mass fraction] HGB A1C Lab Routine Controlled type 2 diabetes mellitus without complication, without long-term current use of insulin (HCC) Expected: 02/14/2020, Expires: 02/13/2021 [facility] Comment on above: Expected: 02/14/2020, Expires: 1 Start: 12-03-2019 Influenza vaccination INFLUENZA (#1) [facility] Start: 2019 Hepatitis B Vaccine (1 of 3 - Risk 3-dose series) Hepatitis B Vaccine (1 of 3 - Risk 3-dose series) [facility] Start: 2019 RSV Immunization aged 60 or older (1 - 1-dose 60+ series) RSV Immunization aged 60 or older (1 - 1-dose 60+ series) [facility] Start: 2019 RSV Immunization for Adults (1 - Risk 60-74 years 1-dose series) RSV Immunization for Adults (1 - Risk 60-74 years 1-dose series) [facility] Start: 2019 RSV Vaccine (1 - 1-dose 60+ series) RSV Vaccine (1 - 1-dose 60+ series) [facility] Start: 2019 RSV Vaccine (1 - Risk 60-74 years 1-dose series) RSV Vaccine (1 - Risk 60-74 years 1-dose series) [facility] Start: 12-01-2014 PROSTATE CANCER SCREENING DISCUSSION PROSTATE CANCER SCREENING DISCUSSION [facility] Start: 12-01-2009 COLORECTAL CANCER SCREENING,SEE MODIFIER COLORECTAL CANCER SCREENING,SEE MODIFIER [facility] Start: 12-01-2009 Screening for malignant neoplasm of colon [facility] Start: 12-01-2009 SHINGRIX VACCINE (1 of 2) SHINGRIX VACCINE (1 of 2) [facility] Start: 12-01-2004 COLOGUARD (FIT-DNA) COLOGUARD (FIT-DNA) [facility] Start: 12-01-[address] COLONOGRAPHY [facility] Start: 12-01-2004 DIABETES SCREEN DIABETES SCREEN [facility] Start: 12-01-2004 FECAL OCCULT BLOOD FECAL OCCULT BLOOD [facility] Start: 12-01-2004 Screening for malignant neoplasm of colon [facility] Start: 12-01-2004 SIGMOIDOSCOPY SIGMOIDOSCOPY [facility] Start: 12-01-1994 LIPID SCREEN LIPID SCREEN [facility] Start: 12-01-1978 Urine microalbumin profile DTAP,TDAP,TD (1 - Tdap) [facility] Start: 12-01-1977 BP CONTROLLED (<130/80) BP CONTROLLED (<130/80) [facility] Start: 12-01-1977 HEPATITIS C SCREENING HEPATITIS C SCREENING [facility] Start: 12-01-1977 Hepatitis C screening Hepatitis C Screening [facility] Start: 12-01-1977 HIV SCREENING HIV SCREENING [facility] Start: 1975 ONE PNEUMOVAX PRIOR TO AGE 65 ONE PNEUMOVAX PRIOR TO AGE 65 [facility] Start: 1971 Depression Monitoring Depression Monitoring [facility] Start: 1971 Depression Screening Depression Screening [facility] Start: 12-01-1969 [object Object] DIABETIC FOOT EXAM [facility] Start: 12-01-1969 Diabetic foot examination Diabetes: Foot Exam [facility] Start: 12-01-1969 Glaucoma screening Diabetes: Retinopathy Screening [facility] Start: 12-01-1969 Hepatitis C antibody, confirmatory test DILATED RETINAL EXAM [facility] Start: 12-01-1969 Preventive dental service Diabetes: Dental Exam [facility] Start: 12-01-1965 PNEUMOCOCCAL (1 - PCV) PNEUMOCOCCAL (1 - PCV) [facility] Start: 12-01-1964 COVID-19 VACCINE (1) COVID-19 VACCINE (1) [facility] Start: 12-01-1960 MMR Vaccines (1 of 1 - Standard series) MMR Vaccines (1 of 1 - Standard series) [facility] Start: 05-31-1960 COVID-19 VACCINE (#1) COVID-19 VACCINE (#1) [facility] Start: 1959 Annual wellness visit Medicare Initial Physical (IPPE) [facility] Start: 1959 HIV screening HIV Screening [facility] Start: 1959 Lipid panel Lipid Panel [facility] Start: 1959 Screening for malignant neoplasm of colon [facility] ACCUCHECK B/O ACCUCHECK B/O La b Routine Diabetes mellitus due to underlying condition, uncontrolled, with hyperglycemia (HCC) Ordered: 01/03/2022 [facility] Work Phone: Comment on above: Ordered: 01/03/2022 ACCUCHECK B/O ACCUCHECK B/O La b Routine Diabetes mellitus due to underlying condition, uncontrolled, with hyperglycemia (HCC) Ordered: 03/01/2022 [facility] Work Phone: Comment on above: Ordered: 03/01/2022 ACCUCHECK B/O ACCUCHECK B/O La b Routine Diabetes mellitus due to underlying condition, uncontrolled, with hyperglycemia (HCC) Ordered: 05/18/2022 [facility] Work Phone: Comment on above: Ordered: 05/18/2022 End: 02-13-2021 ALBUMIN/CREAT RATIO RND UR ALBUMIN/CREAT RATIO RND UR Lab Routine Controlled type 2 diabetes mellitus without complication, without long-term current use of insulin (HCC) 1 Occurrences starting 02/14/2020 until 02/13/2021 [facility] Comment on above: 1 Occurrences starting 02/14/2020 until 02/13/2021 End: 04-27-2021 ALBUMIN/CREAT RATIO RND UR ALBUMIN/CREAT RATIO RND UR Lab Routine Diabetes mellitus due to underlying condition, uncontrolled, with hyperglycemia (HCC) 1 Occurrences starting 04/27/2020 until 04/27/2021 [facility] Comment on above: 1 Occurrences starting 04/27/2020 until 04/27/2021 End: 02-13-2021 CBC W Auto Differential panel - Blood CBC + DIFF Lab Routine Routine physical examination 1 Occurrences starting 02/14/2020 until 02/13/2021 [facility] Comment on above: 1 Occurrences starting 02/14/2020 until 02/13/2021 Comprehensive metabo lic 2000 panel COMP METABOLIC PANEL Lab Routine Routine physical examination 1 Occurrences starting 02/14/2020 [facility] Comment on above: 1 Occurrences starting 02/14/2020 End: 02-19-2021 CREATININE BLD CREATININE BLD Lab Routine Dizziness 1 Occurrences starting 02/20/2020 until 02/19/2021 [facility] Comment on above: 1 Occurrences starting 02/20/2020 until 02/19/2021 Ct angiography head w/contrast/noncontrast CTA HEAD WO/W IVCON Radiology Routine Dizziness and giddiness Ordered: 02/20/2020 [facility] Comment on above: Ordered: 02/20/2020 End: 07-05-2023 Ct thorax w/o contrast material CT CHEST WO IVCON Radiology Routine Pulmonary nodules 1 Occurrences starting 06/05/2022 until 07/05/2023 [facility] Work Phone: Comment on above: 1 Occurrences starting 06/05/2022 until 07/05/2023 ECG B/O WO INTERP ( ED OFFICE) [facility] Comment on above: Ordered: 02/14/2020 Ordered: 02/20/2020 Ordered: 05/28/2020 ECG B/O WO INTERP (M ED OFFICE) ECG B/O WO INTERP (MED OFFICE) ECG Routine Hypertension, essential Ordered: 08/12/2022 [facility] Work Phone: Comment on above: Ordered: 08/12/2022 ECG B/O WO INTERP (M ED OFFICE) ECG B/O WO INTERP (MED OFFICE) ECG Routine Myocardial infarction due to demand ischemia (HCC) Hypertension, essential Ordered: 09/28/2022 [facility] Work Phone: Comment on above: Ordered: 09/28/2022 End: 10-14-2023 Echocardiography ECHO Cardiology Routine OTT (dyspnea on exertion) 1 Occurrences starting 10/13/2022 until 10/14/2023 [facility] Work Phone: Comment on above: 1 Occurrences starting 10/13/2022 until 10/14/2023 Glucose [Mass/volume ] in Serum or Plasma GLUCOSE, BLOOD (POC) Lab Routine Diabetes mellitus due to underlying condition, uncontrolled, with hyperglycemia (HCC) Ordered: 08/11/2021 [facility] Work Phone: Comment on above: Ordered: 08/11/2021 Glucose [Mass/volume ] in Serum or Plasma GLUCOSE, BLOOD (POC) Lab Routine Diabetes mellitus due to underlying condition, uncontrolled, with hyperglycemia (HCC) Ordered: 09/20/2021 [facility] Work Phone: Comment on above: Ordered: 09/20/2021 Glucose [Mass/volume ] in Serum or Plasma GLUCOSE, BLOOD (POC) Lab Routine Diabetes mellitus due to underlying condition, uncontrolled, with hyperglycemia (HCC) Ordered: 10/05/2021 [facility] Work Phone: Comment on above: Ordered: 10/05/2021 H&P for surgery H&P FOR SURGERY Procedures Routine History of rectal cancer Ordered: 09/02/2022 [facility] Work Phone: Comment on above: Ordered: 09/02/2022 Hemoglobin A1c/Hemoglobin.total in Blood HEMOGLOBIN A1C (POC) Lab Routine Diabetes mellitus due to underlying condition, uncontrolled, with hyperglycemia (HCC) Ordered: 08/11/2021 [facility] Work Phone: Comment on above: Ordered: 08/11/2021 Hemoglobin A1c/Hemoglobin.total in Blood HEMOGLOBIN A1C (POC) Lab Routine Diabetes mellitus due to underlying condition, uncontrolled, with hyperglycemia (HCC) Ordered: 09/20/2021 [facility] Work Phone: Comment on above: Ordered: 09/20/2021 Hemoglobin A1c/Hemoglobin.total in Blood HEMOGLOBIN A1C (POC) Lab Routine Diabetes mellitus due to underlying condition, uncontrolled, with hyperglycemia (HCC) Ordered: 10/05/2021 [facility] Work Phone: Comment on above: Ordered: 10/05/2021 End: 02-13-2021 HEP C AB IA W/CONF SCRN HEP C AB IA W/CONF SCRN Lab Routine Special screening examination for viral disease 1 Occurrences starting 02/14/2020 until 02/13/2021 [facility] Comment on above: 1 Occurrences starting 02/14/2020 until 02/13/2021 HGBA1C B/O (AG) HGBA1C B/O (AG) Lab Routine Diabetes mellitus due to underlying condition, uncontrolled, with hyperglycemia (HCC) Ordered: 01/03/2022 [facility] Work Phone: Comment on above: Ordered: 01/03/2022 HGBA1C B/O (AG) HGBA1C B/O (AG) Lab Routine Diabetes mellitus due to underlying condition, uncontrolled, with hyperglycemia (HCC) Ordered: 03/01/2022 [facility] Work Phone: Comment on above: Ordered: 03/01/2022 HGBA1C B/O (AG) HGBA1C B/O (AG) Lab Routine Diabetes mellitus due to underlying condition, uncontrolled, with hyperglycemia (HCC) Ordered: 05/18/2022 [facility] Work Phone: Comment on above: Ordered: 05/18/2022 HGBA1C B/O (AG) HGBA1C B/O (AG) Lab Routine Diabetes mellitus due to underlying condition, uncontrolled, with hyperglycemia (HCC) Ordered: 06/29/2022 [facility] Work Phone: Comment on above: Ordered: 06/29/2022 End: 02-13-2021 HIV 1+2 Ab IA Ql HIV 1 2 COMBO(AG/AB),WITH REFLEX TO DIFFERENTIATION Lab Routine Screening for HIV (human immunodeficiency virus) 1 Occurrences starting 02/14/2020 until 02/13/2021 [facility] Comment on above: 1 Occurrences starting 02/14/2020 until 02/13/2021 INJECTION HIP JOINT (AG) INJECTI ON HIP JOINT (AG) Radiology Routine Primary osteoarthritis of left hip Ordered: 01/23/2023 [facility] Work Phone: Comment on above: Ordered: 01/23/2023 End: 02-13-2021 LIPID PANEL BASIC LIPID PANEL BASIC Lab Routine Routine physical examination 1 Occurrences starting 02/14/2020 until 02/13/2021 [facility] Comment on above: 1 Occurrences starting 02/14/2020 until 02/13/2021 End: 04-27-2021 LIPID PANEL BASIC LIPID PANEL BASIC Lab Routine Mixed hyperlipidemia 1 Occurrences starting 04/27/2020 until 04/27/2021 [facility] Comment on above: 1 Occurrences starting 04/27/2020 until 04/27/2021 End: 07-31-2023 MRI ARTHROGRAM HIP LEFT MRI ARTHROGRAM HIP LEFT Radiology Routine Pain in hip Chronic left hip pain 1 Occurrences starting 07/01/2022 until 07/31/2023 [facility] Work Phone: Comment on above: 1 Occurrences starting 07/01/2022 until 07/31/2023 End: 08-30-2022 MRI ARTHROGRAM HIP LEFT [facility] Work Phone: Comment on above: 1 Occurrences starting 08/30/2022 until 08/30/2022 Mri pelvis w/o & w/contrast material MRI PELVIS WO/W IVCON Radiology Routine Malignant neoplasm of rectosigmoid junction (HCC) 08/09/2021 5:06 PM EDT [facility] Work Phone: End: 10-02-2023 Mri spinal canal lumbar w/o contrast material MRI LUMBAR SPINE WO IVCON Radiology Routine Chronic left hip pain Lumbar back pain with radiculopathy affecting lower extremity Spinal stenosis of lumbar region with neurogenic claudication Lumbar radiculopathy Chronic bilateral low back pain with left-sided sciatica Spinal stenosis of lumbar region, unspecified whether neurogenic claudication present 1 Occurrences starting 09/02/2022 until 10/02/2023 [facility] Work Phone: Comment on above: 1 Occurrences starting 09/02/2022 until 10/02/2023 End: 11-12-2023 NM CARDIAC PERF STRESS/PHARM NM CARDIAC PERF STRESS/PHARM Radiology Routine Precordial pain OTT (dyspnea on exertion) Primary hypertension 1 Occurrences starting 10/13/2022 until 11/12/2023 [facility] Work Phone: Comment on above: 1 Occurrences starting 10/13/2022 until 11/12/2023 PAP TITRATION PSG (C PAP, BIPAP, ASV) PAP TITRATION PSG (CPAP, BIPAP, ASV) Procedures Routine MEKHI (obstructive sleep apnea) Ordered: 10/05/2021 [facility] Work Phone: Comment on above: Ordered: 10/05/2021 PAP TITRATION PSG (C PAP, BIPAP, ASV) PAP TITRATION PSG (CPAP, BIPAP, ASV) Procedures Routine MEKHI (obstructive sleep apnea) Ordered: 05/18/2022 [facility] Work Phone: Comment on above: Ordered: 05/18/2022 Prostate specific Ag [Mass/Vol] PSA/PROSTSPECAG DIAG Lab Routine Routine physical examination 1 Occurrences starting 02/14/2020 [facility] Comment on above: 1 Occurrences starting 02/14/2020 PT ED PATIENT INFORMATION PT ED PATIENT INFORMATION Other 05/30/2020 [facility] PT PLAN OF CARE CERTIFICATION PT PLAN OF CARE CERTIFICATION Procedures Routine Chronic bilateral low back pain, unspecified whether sciatica present Weakness Decreased mobility and endurance Ordered: 05/05/2020 [facility] Comment on above: Ordered: 05/05/2020 Radex hip unilateral with pelvis 1 view XR HIP 1V UNIL W PELVIS WHEN PERFORMED (AG) Radiology Routine Pain in left hip Ordered: 10/09/2022 [facility] Work Phone: Comment on above: Ordered: 10/09/2022 Radex shoulder compl ete minimum 2 views XR SHOULDER GENERAL 3V OR MORE AP/TRUE AP/OTHER LT Radiology Routine Left shoulder pain, unspecified chronicity Ordered: 04/27/2020 [facility] Comment on above: Ordered: 04/27/2020 End: 03-15-2021 Radex spine lumbosacral 2/3 views XR LUMBAR GENERAL 3V AP/LAT/L5-S1 Radiology Routine Chronic bilateral low back pain with sciatica, sciatica laterality unspecified 1 Occurrences starting 02/14/2020 until 03/15/2021 [facility] Comment on above: 1 Occurrences starting 02/14/2020 until 03/15/2021 End: 09-03-2023 Screening colonoscopy COLONOSCOPY SCREENING Endoscopy Routine History of rectal cancer 1 Occurrences starting 09/02/2022 until 09/03/2023 [facility] Work Phone: Comment on above: 1 Occurrences starting 09/02/2022 until 09/03/2023 End: 02-19-2025 Screening colonoscopy COLONOSCOPY SCREENING Endoscopy Routine History of rectal cancer 1 Occurrences starting 02/20/2024 until 02/19/2025 [facility] Work Phone: Comment on above: 1 Occurrences starting 02/20/2024 until 02/19/2025 Tissue Pathology bio psy report SURGICAL PATHOLOGY Lab Routine History of rectal cancer Pre-op examination MEKHI (obstructive sleep apnea) Stage 3b chronic kidney disease (HCC) Nicotine use disorder Mixed hyperlipidemia Marijuana use Hypertension, unspecified type Obesity, Class II, BMI 35-39.9 Type 2 diabetes mellitus with stage 3b chronic kidney disease, with long-term current use of insulin (HCC) Hyperlipidemia, unspecified hyperlipidemia type Alcohol dependence with unspecified alcohol-induced disorder (HCC) Hyperkalemia Release Upon Ordering for 1 Occurrences starting 05/13/2024 [facility] Work Phone: Comment on above: Release Upon Ordering for 1 Occurrences starting 05/13/2024 End: 02-13-2021 TSH Qn TSH BLD Lab Routine Routine physical examination 1 Occurrences starting 02/14/2020 until 02/13/2021 [facility] Comment on above: 1 Occurrences starting 02/14/2020 until 02/13/2021 Urinalysis complete panel - Urine URINALYSIS, WITH MICROSCOPIC Lab Routine Dysuria 1 Occurrences starting 04/27/2020 [facility] Comment on above: 1 Occurrences starting 04/27/2020 VITAMIN D 25 HYDROXY VITAMIN D 2 5 HYDROXY Lab Routine Routine physical examination 1 Occurrences starting 02/14/2020 [facility] Comment on above: 1 Occurrences starting 02/14/2020 End: 07-31-2023 XR INJ ARTHROGRAM HIP LEFT XR INJ ARTHROGRAM HIP LEFT Radiology Routine Pain in hip Chronic left hip pain 1 Occurrences starting 07/01/2022 until 07/31/2023 [facility] Work Phone: Comment on above: 1 Occurrences starting 07/01/2022 until 07/31/2023 End: 08-30-2022 XR INJ ARTHROGRAM HIP LEFT XR INJ ARTHROGRAM HIP LEFT Radiology Routine Pain in hip Chronic left hip pain 1 Occurrences starting 08/30/2022 until 08/30/2022 [facility] Work Phone: Comment on above: 1 Occurrences starting 08/30/2022 until 08/30/2022 [facility] Immunizations Immunization Date Immunization Notes Care Provider Fidencio [facility] 08-12-2022 pneumococcal polysaccharide vaccine, 23 valent Belgica Je DO Work Phone: [facility] 03-01-2022 influenza, injectabl e, quadrivalent, contains preservative Belgica Je DO Work Phone: [facility] 03-01-2022 influenza virus vacc ine, unspecified formulation Belgica Je DO Work Phone: [facility] 01-08-2021 influenza, injectabl e, quadrivalent, contains preservative Janie Pickett [employer] Work Phone: [facility] 10-19-2020 tetanus toxoid, redu anna diphtheria toxoid, and acellular pertussis vaccine, adsorbed Janie Nieves [employer] Work Phone: [facility] 10-19-2020 zoster vaccine recombinant Janievega Pickett [employer] Work Phone: [facility] 03-23-2020 influenza, injectabl e, quadrivalent, contains preservative Belgica Javier [facility] 03-23-2020 zoster vaccine recombinant Belgica Javier [facility] Payers Date Payer Category Payer Self-pay 2023 Medicare (Managed Care) [facility] DUAL COMPLETE HMO POS SNP [id number] 2023 Medicare HMO [employer] DUAL COMPLET E [id number] 2022 Formerly [facility] [id number] 2021 Medicaid [id number] 2020 Medicaid [id number] 2020 Medicaid [id number] 2020 Medicare [id number] 2020 Medicare [id number] 2020 Medicare [id number] Unknown [id number] Unknown [id number] Social History Date Type Detail Facility Start: 02-14-2020 End: 07-10-2024 Tobacco smoking status NHIS Former smoker [facility] Start: 02-14-2020 End: 07-10-2024 Tobacco use and exposure [facility] used [facility] Start: 02-14-2020 End: 07-10-2024 Alcohol intake Ex-drinker (finding) [facility] Start: 1960 Sex Assigned At Not on file [facility] Start: 08-10-2020 End: 01-20-2022 Exposure to SARS-CoV-2 (event) Not sure [facility] Start: 04-03-1973 End: 04-03-2010 History of tobacco use Current smoker [facility] Start: 04-03-1973 End: 04-03-2010 History of tobacco use Cigarette Smoker [facility] Start: 04-19-2021 End: 10-22-2023 Cigarettes smoked current (pack per day) - Reported 1 [facility] Start: 09-23-2020 End: 01-18-2022 History SDOH Alcohol Frequency 1 [facility] Start: 09-23-2020 End: 12-28-2021 History SDOH Social Connections Phone 5 [facility] Start: 09-23-2020 End: 12-28-2021 History SDOH Social Connections Membership 2 [facility] Start: 09-23-2020 End: 12-28-2021 History SDOH Social Connections Living 7 [facility] Start: 09-23-2020 History SDOH Physical Activity DPW 0 [facility] Start: 09-23-2020 History SDOH Stress 4 [facility] Start: 09-23-2020 Education 9 [facility] Start: 04-12-2021 End: 01-03-2022 Tobacco Comment Smokes [place] [facility] Start: 1960 Sex Assigned At Male [facility] [facility] Work Phone: Start: 01-18-2022 History SDOH Housing Unable to Pay 3 [facility] Start: 12-28-2021 End: 10-22-2023 Social connection and isolation panel [facility] Do you belong to any clubs or organizations such as hinduism groups, unions, fraternal or athletic groups, or school groups? Yes [facility] Are you now , , , , never or living with a partner? Never [facility] How often to you hav e a drink containing alcohol? Never [facility] Average Number of Drinks Not on file [facility] Work Phone: Do you feel stress - tense, restless, nervous, or anxious, or unable to sleep at night because your mind is troubled all the time - these days [OSQ] Very much [facility] (I/We) worried wheth er (my/our) food would run out before (I/we) got money to buy more. DK or Refused [facility] Work Phone: Start: 09-04-2020 Gender identity Identifies as male gender (finding) [facility] Work Phone: Start: 09-04-2020 Sexual orientation Heterosexual (finding) [facility] Work Phone: Has the [employer] or [employer] threatened to shut off services in your home in past 12Mo No [facility] How hard is it for y ou to pay for the very basics like food, housing, medical care, and heating Somewhat hard [facility] (I/We) worried wheth er (my/our) food would run out before (I/we) got money to buy more. Sometimes true [facility] would run out before (I/we) got money to buy more. Never true [facility] Start: 08-01-2023 Sex Male (finding) [facility] Medical Equipment Procedure Code Equipment Code Equipment Origin al Text Equipment Identifier Dates [id number] Start: 09-22-2020 End: 05-18-2022 Comment on above: 3x/day 1 Each once daily. Use as instructed 3x /day Recommend check bloo d sugar once daily, rotate times. Sometimes check in the morning sometimes 2 hours after meals, sometimes at bedtime. Please bring in blood sugar log and have available for review. 1 Applicator four ti mes daily. Lens Acrysof Ultrasert +23.5 Diopter Acrylic Iol 1 Piece Foldable Uv Blue - [id number] Start: 08-18-2022 Lens Acrysof Ultrasert +23 Diopter Acrylic Iol 1 Piece Foldable Uv Blue - [id number] Start: 09-08-2022 Catheter Glidepa th 14.5fr Straight Polyurethane 28cm 23cm Hemodialysis Kit - [id number] Start: 07-18-2024 Goals Date Patient Goal Desired Activity /State Personal health goal Comment on above: Formatting of this n ote might be different from the original. Last 09/16/22 Formatting of this n ote might be different from the original. Last 06/27/22 LDL = 198 Crestor 5mg Formatting of this n ote might be different from the original. Last 11/01/22 Formatting of this n ote might be different from the original. Last 11/01/22 LDL = 129 (Down) Crestor 10mg Comment on above: Formatting of this n ote might be different from the original. Last 04/20/21 Formatting of this n ote might be different from the original. Last 07/05/21 Formatting of this n ote might be different from the original. Last 09/02/21 Formatting of this n ote might be different from the original. Last 01/26/22 Formatting of this n ote might be different from the original. Last 04/01/22 Formatting of this n ote might be different from the original. Last 09/16/22 Comment on above: Formatting of this n ote might be different from the original. Last 10/19/20 LDL = 150 (No meds) Formatting of this n ote might be different from the original. Last 07/05/21 LDL = 160 (No meds) Formatting of this n ote might be different from the original. Last 06/27/22 LDL = 198 Crestor 5mg Functional Status Date Assessment Result Facility 10-20-2023 Are you deaf, or do you have serious difficulty hearing No 10/20/2023 2:19 PM EDT Ester Benitez RN No [facility] 10-20-2023 Are you blind, or do you have serious difficulty seeing, even when wearing glasses No 10/20/2023 2:19 PM EDT Ester Benitez RN No [facility] 10-20-2023 Do you have serious difficulty walking or climbing stairs Yes 10/20/2023 2:19 PM EDT Ester Benitez RN Yes [facility] 10-20-2023 Do you have difficul ty dressing or bathing Yes 10/20/2023 2:19 PM EDT Ester Benitez RN Yes [facility] 10-20-2023 Because of a physica l, mental, or emotional condition, do you have difficulty doing errands alone such as visiting a physician's office or shopping Yes 10/20/2023 2:19 PM EDT Ester Benitez RN Yes [facility] Mental Status Date Assessment Result Facility 10-20-2023 Because of a physica l, mental, or emotional condition, do you have serious difficulty concentrating, remembering, or making decisions Yes 10/20/2023 2:19 PM EDT Ester Benitez RN Yes [facility] Clinical Notes 05-05-2020 to 07-24-2024 Telephone Encounter - Claudia Chow LPN - 07/24/2024 11:47 AM EDTTelephone Encounter - Claudia Chow LPN - 07/24/2024 11:47 AM Jose Bryant MD - 07/10/2024 2:45 PM EDT Note Date & Type Note Facility 07-24-2024 Telephone encounter Note Hi, Pt d/c to a SNF. Referral discarded. Thank you, Claudia Chow LPN [facility] Work Phone: 07-24-2024 Miscellaneous Notes Hi, Pt d/c to a SNF. Referral discarded. Thank you, Claudia Chow LPN documented in this encounter [facility] 07-23-2024 Note [facility] 07-22-2024 Note [facility] 07-22-2024 Note [facility] 07-21-2024 Note [facility] 07-20-2024 Note [facility] 07-20-2024 Note [facility] 07-20-2024 Note [facility] 07-19-2024 Note [facility] 07-19-2024 Note [facility] 07-18-2024 Note [facility] 07-17-2024 Note [facility] 07-16-2024 Note [facility] 07-15-2024 Note [facility] 07-14-2024 Note [facility] 07-13-2024 Note [facility] 07-12-2024 Note [facility] 07-12-2024 Telephone encounter Note Bunny Scott MD Please advise if you are agreeable to signing and following for HHC services? Our Clinicians will be sending the Plan of Care to you for review and approval. They will reach out for any appropriate orders required to provide home care services for the patient. We are not able to initiate HHC services without a following provider. Home care clinicians may also obtain orders from [facility] Virtualist Providers Thank you and we would be happy to answer any questions. Judith Cat LPN 07/12/2024 10:23 AM [facility] Work Phone: 07-12-2024 Miscellaneous Notes Bunny Scott MD Please advise if you are agreeable to signing and following for HHC services? Our Clinicians will be sending the Plan of Care to you for review and approval. They will reach out for any appropriate orders required to provide home care services for the patient. We are not able to initiate HHC services without a following provider. Home care clinicians may also obtain orders from [facility] Virtualist Providers Thank you and we would be happy to answer any questions. Judith Cat LPN 07/12/2024 10:23 AM documented in this encounter [facility] 07-10-2024 History of Present illness Narrative Chief complaint : Subjective : José Manuel Ashton is a 63 year old male seen for CKD follow up. SUBJECTIVE: José Manuel Ashton is a 63 year old White male with past medical history significant for : Type 2 diabetes, hypertension, hyperlipidemia, depression, colon to [facility] on 05/23/23 with polyp, lumbar radiculopathy, history of marijuana use in the past seen in follow up visit for CKSD Previous hospitalization : who presented with poorly controlled blood glucose and blood pressure. Blood glucose was more than 400 in the PCPs office was scented to the emergency room patient with associated generalized weakness and noncompliant with home medication. Patient with chronic back pain and nausea and vomiting. He stated that make him not to take any p.o. Blood pressure was elevated. Admission patient noted to have elevated BUN and creatinine. BUN was 1.89 previous baseline creatinine was 1.65 on 11/01/2022. With positive beta-hydroxybutyrate of 0.92 A1c of 13.0 Patient was diagnosed with acute kidney injury on chronic kidney disease stage III Versus underlying stage III chronic kidney disease with baseline creatinine around 1.9. Patient's creatinine stayed 1.9 and noted to be underlying stage III chronic kidney disease from diabetic nephropathy had nephrotic range proteinuria with albumin/creatinine history 5008 mg/g. Patient with type 2 diabetes and A1c was 13.0. Patient's workup revealed urine analysis with RBC of 6-10 and granular casts present. Kidney ultrasound no hydronephrosis bilateral symmetrical kidney and no increased echogenicity. Detailed workup for GN was ordered specially for nephrotic syndrome. 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 Mix powder in 45 mL of water, stir and drink immediately. ergocalciferol 50,000 unit capsule (VITAMIN D2, DRISDOL) Take 1 capsule by mouth one time a week. dapagliflozin propanediol (FARXIGA) 10 mg tablet Take 1 tablet by mouth daily with breakfast. diazePAM (VALIUM) 10 mg tablet Take 10 mg by mouth two times a day as needed for anxiety. insulin lispro (HUMALOG KWIKPEN INSULIN) 100 unit/mL Inject 8 Units subcutaneously three times a day before meals. SLIDING SCALE: bld sugar 60-124=0 units 125-150=2 units, 151-200=4 units, 201-250=6 untis 251-300=8 units, 301-350=10 units, 351-400=12 units amLODIPine (NORVASC) 5 mg tablet Take 1 tablet by mouth two times a day. carvedilol (COREG) 25 mg tablet Take 1 tablet by mouth two times a day with meals. cyclobenzaprine (FLEXERIL) 10 mg tablet Take 1 tablet by mouth three times a day as needed for muscle spasm. hydrALAZINE (APRESOLINE) 25 mg tablet Take 1 tablet by mouth two times a day. pantoprazole DR (PROTONIX) 40 mg tablet Take 1 tablet by mouth once daily. doxazosin (CARDURA) 1 mg tablet Take 1 tablet by mouth daily at bedtime. DULoxetine (CYMBALTA) 30 mg capsule Take 1 capsule by mouth once daily. insulin glargine (BASAGLAR KWIKPEN U-100 INSULIN) 100 unit/mL (3 mL) Inject 24 Units subcutaneously daily at bedtime. insulin lispro (HUMALOG KWIKPEN) 100 unit/mL Inject 8 Units subcutaneously three times a day before meals. pen needle,diabetic dual safty (BD AUTOSHIELD DUO PEN NEEDLE) 30 gauge x 3/16" ndle 1 Applicator four times daily. No current facility-administered medications for this visit. Social History Tobacco Use Smoking status: Former Current packs/day: 0.00 Average packs/day: 1 pack/day for 37.0 years (37.0 ttl pk-yrs) Types: Cigarettes Start date: 04/03/1973 Quit date: 04/03/2010 Years since quittin.2 Smokeless tobacco: Never Tobacco comments: Smokes [place] Vaping Use Vaping status: Never Used Substance Use Topics Alcohol use: Not Currently Drug use: Yes Types: Marijuana Comment: daily PAST SURGICAL HISTORY Procedure Laterality Date COLONOSCOPY GEN ANES 07/24/2020 Invasive Adenocarcinoma arising in a Tubulovillous Adenoma in the lower rectum, Tubular Adenomas, Fragment of Hyperplastic polyp, Internal Hemorrhoids EGD 07/24/2020 Will's Esophagus, Hyperplastic polyp in Duodenum EXCISION OF RECTAL TUMOR, TRANSANAL 11/24/2020 Dr. Ahmadi REMV CATARACT EXTRACAP,INSERT LENS Left 08/18/2022 REMV CATARACT EXTRACAP,INSERT LENS Right 09/08/2022 FAMILY HISTORY Problem Relation Age of Onset other (Heart stroke) Mother other (Glaucoma lung cancer) Father Leukemia Sister Glaucoma Sister Glaucoma Brother Colon Cancer Brother FAMILY HISTORY OF: CVA:No CAD: No DIABETES: No HTN: No KIDNEY DISEASE: No NEPHROLITHIASIS: No REVIEW OF SYSTEMS: CONSTITUTIONAL: Denies fevers, chills, and weight changes. Denies fatigue/malaise. EYES: No acute vision change or ocular pain. Denies dryness or redness of eyes. ENT: No difficulties with hearing. No sinus pain or sore throat.No epistaxis, nasal discharge/congestion. No dry mouth, oral ulceration, or gingivitis. PULMONARY: Denies shortness of breath, wheezing, cough or hemoptysis. CARDIOLOGY: Denies chest pain, palpitations, OTT, orthopnea or PND. GI: No anorexia, nausea, vomiting, dysphagia, diarrhea, constipation, abdominal pain, hematochezia or melena. : No urinary hesitancy or dribbling. No nocturia or urinary frequency. No abnormal discharge. No hematuria, dysuria, or flank pain. MUSCULO-SKELETAL: No joint pain, swelling or erythema. ENDO: Denies any Cold or Heat Intolerance. Denies any polyuria or polydipsia. HEME: Denies any bleeding problems, clotting problems or easy Bruising. SKIN: Denies any rashes or skin changes. No itching. NEUROLOGIC: Denies any headache, Dizziness or seizures. No numbness, tingling, weakness or tremors. EXTREMITIES: Denies any lower Extremity edema. Denies any claudication or peripheral ulcer. [A full 12 point ROS was obtained and is negative other than that cited above.] PHYSICAL EXAMINATION: BP 168/91 (BP Site: Right Arm, BP Position: Sitting, BP Cuff Size: Regular Adult) Pulse 84 Temp 36.6 C (97.9 F) (Temporal) Ht 172.7 cm (5' 8") Wt 115.2 kg (254 lb) SpO2 98% BMI 38.62 kg/m BMI 38.62 kg/(m^2) GENERAL: Well developed and well nourished, NAD. EYES: Conjunctivae- pink, Non-icterus sclera. HEENT : Normocephalic, atraumatic, oral pharynx clear, MMM and pink. NECK : Supple, No JVD. No cervical lymphadenopathy or masses. No thyromegaly or tenderness. RESPIRATORY: Resp efforts are WNL. Bilat equal air entry. CTA bilaterally CVS : Pericardial friction rub is absent. S1, S2 Normal. No Murmer, or gallops. EDEMA none VASCULAR: carotid pulses is palpable bilaterally; carotid bruit is absent; No Abdominal bruit. Peripheral pulse palpable . ABDOMEN: soft, non-distended, non-tender, Normoactive BS. No HSM. : NO CVA tenderness. bladder is not distended. SKIN: No rashes or ulcers present. No induration of skin or subcutaneous area. LAB DATA Latest Ref Rng 05/24/2023 05/25/2023 Albumin 3.43 - 5.41 g/dL 3.20 (L) Alpha 1 Globulin 0.18 - 0.43 g/dL 0.35 Alpha 2 Globulin 0.42 - 0.98 g/dL 1.08 (H) Beta Globulin 0.61 - 1.17 g/dL 0.90 Gamma Globulin 0.53 - 1.51 g/dL 0.47 (L) Interpretation (Prot Electro) No definitive M protein is identified on protein electrophoresis. No definitive M protein is identified on protein electrophoresis. M-Protein Location -- M-Protein Concentration <=0.00 g/dL 0.00 SPE Staff Review Reviewed by Sebas Ocampo MD, Ph.D ([id number]) Comment (Serum Prot Electro) A reflex test for Monoclonal Protein analysis (immunofixation) has been ordered. Interpretation Comment for Protein Electrophoresis Hypogammaglobulinemia is present, which can be seen in the setting of monoclonal gammopathy. If clinically indicated, monoclonal protein analysis and serum free light chain analysis are suggested to evaluate further for monoclonal gammopathy. Creatinine, Ur Random (UCRR) 20.0 - 300.0 mg/dL 74.2 Albumin, Urine Random mg/L 3,715.7 Albumin/Creat Ratio <30 mg/g 5,008 (H) [place] Free, Serum 3.3 - 19.4 mg/L 57.0 (H) Lambda Free, Serum 5.7 - 26.3 mg/L 36.1 (H) K/L Ratio, Serum 0.26 - 1.65 1.58 DNA Antibody <=200 IU/mL 16 DNA Antibody Qualitative Interpretation Negative Negative MPA Result No M protein is identified. No M protein is identified. Staff Review (MPA) Reviewed by Sebas Ocampo MD, Ph.D ([id number]) C3 86 - 166 mg/dL 147 C4 13 - 46 mg/dL 26 Phospholipase A2 Receptor, FABIENNE, S RU/mL <2 JAMARCUS Negative Negative Protein, Total 6.3 - 8.0 g/dL 6.0 (L) PLA2R. Immunofluorescence, S Negative Negative THSD7A Ab, S Negative Negative Lab work on 06/13/2023. Sodium 141 potassium 4.7 CO2 26 BUN 46 creatinine 2.17 glucose 158 calcium 8.6 GFR 33\\ 04/26/24 : Cr 3.41 \\ Work on 07/01/2024: Sodium 145 potassium 5.3 CO2 21 BUN 66 creatinine 4.6 GFR 13 06/28/24 Sodium 144 potassium 7.1 BUN is 79 creatinine 4.3 GFR 15 Repeat blood work on 07/01/2024 with potassium 5.3 and creatinine of 4.6 and GFR down to 13. Last A1c 6.4 Albumin creatinine ratio 6980 mg/g. A/P 1. chronic kidney disease stage III with baseline creatinine now around 1.9-2.2 mg/dL with GFR of 40 mill per minute, . Most likely in the setting of diabetic nephropathy 2. Type 2 diabetes, uncontrolled last A1c 13.0 3. Hyperparathyroidism 4. Hyponatremia likely pseudohyponatremia in the setting of hyperglycemia 5. Hyperlipidemia 6. Hypertension 7. Anemia Plan of management: During last visit creatinine was 2.3. Previous GFR was running between 1.9-2.2. Now with worsening of renal function. Creatinine of 4.6 and GFR down to 13. Patient also with mild hyperkalemia and metabolic acidosis. Refer to ER : IVF, Kidney US, Echo, possible kidney Bx , CXR During last visit I have added Farxiga 10 mg daily and was not taking it Previous history of hyperkalemia and cannot add KATRINA inhibitor and ARB. Patient with underlying stage III chronic kidney disease GFR between 33-40 mill per minute and creatinine 1.9 to 2.2 mg deciliter. Likely in the setting of diabetic kidney disease, last A1c 13.0 on 05/23/2023, last A1c 7.7 per glucometer Patient have not done chronic kidney disease workup of prior to this visit Previous nephrotic syndrome workup was unremarkable suggestive most likely diabetic kidney disease Amlodipine 5 mg po BID Coreg 25 mg po BID hydrALAZINE (APRESOLINE) 25 mg tablet Take 1 tablet by mouth two times a day. furosemide (LASIX) 20 mg tablet Take 1 tablet by mouth daily after lunch. Had episode of hyperkalemia in September and was treated with SPS and losartan was stoppedLosartan 50 mg po qhs add based on blood work Farxiga 10 mg po Daily ( 01/24/24) ( will check labs ), but pt never filled it Instructions Regular monitoring of renal function Aggressive blood pressure control Avoid smoking and secondhand smoke Avoidance of nephrotoxins - IV contrast, nonsteroidal anti-inflammatory agents Avoid excessive salt and protein intake Fluid restriction and dietary modifications as directed Counseled on weight loss. Exercise - walk 3-4 times per week. Follow up as scheduled to review test results Continue meds as prescribed. Low salt diet. Return in 3 months (on 10/09/2024). documented in this encounter [facility] 06-28-2024 Telephone encounter Note S: Patient spoke with [facility] nurse regarding abnormal labs results being called by the [facility]. Hx: DM B: Onset of symptoms/concern labs were drawn from the [facility] office at his appointment on 06/27/24 having an urgent notification at 15:54 was seen in the office for a 2-month follow up A: Bun 79.9 CR 4.3 Potassium 7.1 R: Paging Dr. Scott at 3:55 No further needs at this time. Reason for Disposition Lab or radiology calling with test results Protocols used: PCP Call - No [id number] [facility] 06-28-2024 Miscellaneous Notes S: Patient spoke with [facility] nurse regarding abnormal labs results being called by the [facility]. Hx: DM B: Onset of symptoms/concern labs were drawn from the [facility] office at his appointment on 06/27/24 having an urgent notification at 15:54 was seen in the office for a 2-month follow up A: Bun 79.9 CR 4.3 Potassium 7.1 R: Paging Dr. Scott at 3:55 No further needs at this time. Reason for Disposition Lab or radiology calling with test results Protocols used: PCP Call - No [id number] documented in this encounter [facility] 05-20-2024 Telephone encounter Note Spoke to the patient's sister and relayed the message and she stated she would inform her brother because she takes all his calls. A 3 year Recall has been placed in [employer] Brittany Roberson [facility] 05-20-2024 Telephone encounter Note ----- Message from Artem Ahmadi MD sent at 05/16/2024 8:39 AM EST ----- His pathology results are back and show a number of small polyps and we should plan for next colonoscopy in 3 years. Artem Ahmadi MD May 16, 2024 8:39 AM [facility] 05-20-2024 Miscellaneous Notes Spoke to the patient's sister and relayed the message and she stated she would inform her brother because she takes all his calls. A 3 year Recall has been placed in [facility]. Brittany Roberson ----- Message from Artem Ahmadi MD sent at 05/16/2024 8:39 AM EST ----- His pathology results are back and show a number of small polyps and we should plan for next colonoscopy in 3 years. Artem Ahmadi MD May 16, 2024 8:39 AM His pathology results are back and show a number of small polyps and we should plan for next colonoscopy in 3 years. Artem Ahmadi MD May 16, 2024 8:39 AM documented in this encounter [facility] 05-16-2024 Progress note Formatting of t his note might be different from the original. His pathology results are back and show a number of small polyps and we should plan for next colonoscopy in 3 years. Artem Ahmadi MD May 16, 2024 8:39 AM [facility] Work Phone: 05-14-2024 Telephone encounter Note A 3 year Recall has been placed in [facility]. Called the patient and left him a voice message that a 3 Year Recall has been placed and he will receive a letter to call to schedule when he is due. Brittany Roberson [facility] 05-14-2024 Miscellaneous Notes A 3 year Recall has been placed in [facility]. Called the patient and left him a voice message that a 3 Year Recall has been placed and he will receive a letter to call to schedule when he is due. Brittany Roberson documented in this encounter [facility] 05-13-2024 Hospital Discharge instructions Artem Ahmadi MD - 05/13/2024 11:51 AM EST First 24 Hours Following the Procedure Once the colonoscopic procedure has been completed, it is recommended that you be driven home by a friend or family member. If you were sedated for the procedure (which most people are), it's recommended that you have someone with you for the first 24 hours after you leave the endoscopy clinic or hospital. If you have nausea, your doctor may prescribe medications to help alleviate symptoms. During the first 24 hours, you should adhere to the following guidelines: Refrain from driving or operating heavy machinery until at least day after your procedure. Take any pain medications or stool softeners as prescribed. Drink plenty of liquids, including prune juice which can help soften stools. Avoid alcohol for the first 24 hours. Eat high-fiber foods or use an [id number] fiber supplement, if needed. Rest and avoid any heavy lifting or strenuous activity. Make sure you have someone with you. If you are single, ask a friend or family member if they can stay the night. If you're taking a daily aspirin to prevent heart troubles, you don't need to stop. Lower-dose aspirin is considered safe after a colonoscopy. When to Call Your Doctor Complications are uncommon but can occur. Call your doctor or clinic if you experience any of the following symptoms in the first 24 hours following your procedure: You have chills or fever. You experience rectal bleeding of more than a tablespoon. You experience swelling at the site where the IV needle was inserted. You experience severe abdominal pain or bloating (mild pain or bloating can be expected). You are vomiting. You are experiencing irregular heartbeats (arrhythmia). If you just don't feel right for any reason. Trust your intuition, and if you feel that something could be wrong, don't hesitate to call. After the First 24 Hours If polyps were removed during your colonoscopy, you will likely need to alter your activities for the next seven days. This includes not running, not lifting anything over five pounds, avoiding unnecessary travel, and stopping any blood thinners you may be taking (but first, this should be discussed with the physician who has been prescribing the blood thinners, as sometimes using these after a colonoscopy outweighs the risk of not using them). In short, be careful and treat your body gingerly. If you experience any of the following symptoms during the first week, call your doctor immediately or go to your nearest emergency room: You are unable to have a bowel movement or to urinate. You suddenly have trouble breathing. Your stools are black or bloody. Your vomit has blood or bile in it. Your abdomen becomes tender and hard. Any symptoms you have are getting worse. documented in this encounter [facility] 05-13-2024 History and physical note HISTORY AND PHYSICAL EXAMINATION SERVICE DATE: 05/13/2024 SERVICE TIME: 10:56 AM PRIMARY CARE PHYSICIAN: Bunny Scott MD REASON FOR VISIT: The reason for this visit is To perform a comprehensive review of the patients past medical history, assess their current health status and obtain any additional testing required based on anesthesia guidelines. To assess and identify potential anesthesia problems, particularly those that may suggest potential complications or contraindications to the planned procedure. 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 Patient here for routine colonoscopy for colon cancer screening. Patient states that he has had colonoscopies in the past. He also states that he has a history of rectal cancer. Patient denies N/V/D or constipation. Denies any abdominal pain. Denies any melena or hematochezia. Denies any other problems at this time. Endorses family history of colon cancer in brother. Patient is agreeable to planned procedure. METS: Walk indoors, such as around the house (1.75 METs) Patient denies any CP/SOB with above activity. 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 Detected on EMG Pseudophakia of both eyes 10/21/2022 Pseudophakia, left eye 08/18/2022 Rectal cancer (HCC) Refractive error 10/21/2022 Spinal stenosis of lumbar region with neurogenic claudication Vitamin D deficiency Vitreous syneresis of both eyes 10/21/2022 PAST SURGICAL HISTORY Procedure Laterality Date COLONOSCOPY GEN ANES 07/24/2020 Invasive Adenocarcinoma arising in a Tubulovillous Adenoma in the lower rectum, Tubular Adenomas, Fragment of Hyperplastic polyp, Internal Hemorrhoids EGD 07/24/2020 Will's Esophagus, Hyperplastic polyp in Duodenum EXCISION OF RECTAL TUMOR, TRANSANAL 11/24/2020 Dr. Brandstetter REMV CATARACT EXTRACAP,INSERT LENS Left 08/18/2022 REMV CATARACT EXTRACAP,INSERT LENS Right 09/08/2022 FAMILY HISTORY Problem Relation Age of Onset other (Heart stroke) Mother other (Glaucoma lung cancer) Father Leukemia Sister Glaucoma Sister Glaucoma Brother Colon Cancer Brother SOCIAL HISTORY: Social History Tobacco Use Smoking status: Former Current packs/day: 0.00 Average packs/day: 1 pack/day for 37.0 years (37.0 ttl pk-yrs) Types: Cigarettes Start date: 04/03/1973 Quit date: 04/03/2010 Years since quittin.1 Smokeless tobacco: Never Tobacco comments: Smokes [place] Vaping Use Vaping status: Never Used Substance Use Topics Alcohol use: Not Currently Drug use: Yes Types: Marijuana Comment: daily Prior to Admission medications as of 05/13/24 1101 Medication Sig Last Dose Taking amLODIPine (NORVASC) 5 mg tablet Take 1 tablet by mouth two times a day. 05/12/2024 Yes carvedilol (COREG) 25 mg tablet Take 1 tablet by mouth two times a day with meals. 05/12/2024 Yes sodium zirconium cyclosilicate (LOKELMA) 10 gram oral packet Take 1 Packet by mouth once daily. Mix powder in 45 mL of water, stir and drink immediately. ergocalciferol 50,000 unit capsule (VITAMIN D2, DRISDOL) Take 1 capsule by mouth one time a week. dapagliflozin propanediol (FARXIGA) 10 mg tablet Take 1 tablet by mouth daily with breakfast. diazePAM (VALIUM) 10 mg tablet Take 10 mg by mouth two times a day as needed for anxiety. insulin lispro (HUMALOG KWIKPEN INSULIN) 100 unit/mL Inject 8 Units subcutaneously three times a day before meals. SLIDING SCALE: bld sugar 60-124=0 units 125-150=2 units, 151-200=4 units, 201-250=6 untis 251-300=8 units, 301-350=10 units, 351-400=12 units cyclobenzaprine (FLEXERIL) 10 mg tablet Take 1 tablet by mouth three times a day as needed for muscle spasm. hydrALAZINE (APRESOLINE) 25 mg tablet Take 1 tablet by mouth two times a day. Patient not taking: Reported on 05/13/[address] (PROTONIX) 40 mg tablet Take 1 tablet by mouth once daily. doxazosin (CARDURA) 1 mg tablet Take 1 tablet by mouth daily at bedtime. DULoxetine (CYMBALTA) 30 mg capsule Take 1 capsule by mouth once daily. insulin glargine (BASAGLAR KWIKPEN U-100 INSULIN) 100 unit/mL (3 mL) Inject 24 Units subcutaneously daily at bedtime. insulin lispro (HUMALOG KWIKPEN) 100 unit/mL Inject 8 Units subcutaneously three times a day before meals. semaglutide (OZEMPIC) 0.25 mg or 0.5 mg(2 mg/1.5 mL) pen Inject 0.5 mg subcutaneously one time a week. Patient not taking: Reported on 05/13/2024 Not Taking pen needle,diabetic dual safty (BD AUTOSHIELD DUO PEN NEEDLE) 30 gauge x 3/16" ndle 1 Applicator four times daily. senna (SENOKOT) 8.6 mg tab Take 1 tablet by mouth once daily. Medication Comments documented by Simeon Hinds RN on 11/15/2023 at 1415. SEE EMAR FOR MEDICATIONS TAKEN LAST 04/19/21 07/31/20 The medications are managed by this patient by: PATIENT Miranda Lewis, OA 11/08/[address] Scott: "Patient to continue to use the SSI only, no regular scheduled Insulin dosing at this time." Patient's sister has been notified and verbalizes understanding." Richard Hinds RN ALLERGIES Allergen Reactions Penicillins Unknown Pt states he thinks he had a reaction as a child REVIEW OF SYSTEMS: PAIN ASSESSMENT: Pain Pain Level: 7 Acceptable level: 5 Pain Location: Back Pain Assessment: Assessment Description: Aching, Shooting, Cramping Duration: Continuous Intervention/Comfort measure: Reposition, Relaxation Tool: Verbal (Numeric Rating or Visual Analog Scale) General: Denies fever, chills, and unexpected weight change. Neuro: Denies dizziness and headaches. Respiratory: Denies SOB. +MEKHI Cardiovascular: Denies CP and palpitations. +HLD +HTN +CKD GI: See HPI. : Denies dysuria. Endocrine: No history of thyroid conditions. +DM Hematology: Denies history of bleeding or clotting disorder. No known autoimmune disorders. Psych: Denies anxiety/depression. Musculoskeletal: Denies joint pain and swelling. Skin: Denies open sores and rashes. Objective PHYSICAL EXAM: VITALS: BP 168/80 Temp (Src) 98.5 (Temporal) Resp 11 SpO2 98% O2 Therapy: Room Air General: NAD. Cooperative. Skin: Skin is warm, no rashes, and no open sores. HEENT: Normocephalic. Cardiovascular: Normal S1 & S2. No murmur. Lungs: CTA Bilaterally. No respiratory distress. Abdomen: Soft. Pos BS x4quad Extremities: No edema. Neurological: Alert and oriented to person, place, and time. Pulses: radial pulses +2 Diagnostic tests reviewed for today's visit: Lab Value Units Date High Low HB 11.0 g/dL 04/26/2024 17.0 13.0 HCT 34.2 % 04/26/2024 51.0 39.0 WBC 5.78 k/uL 04/26/2024 11.00 3.70 PLT 256 k/uL 04/26/2024 400 150 NA 141 mmol/L 04/26/2024 144 136 K 6.2 mmol/L 04/26/2024 5.1 3.7 GLUC 128 mg/dL 04/26/2024 99 74 BUN 59 mg/dL 04/26/2024 24 9 CREAT 3.41 mg/dL 04/26/2024 1.22 0.73 PTSEC No results within date range. INR No results within date range. APTT No results within date range. ALT No results within date range. AST No results within date range. TBILI No results within date range. TSH No results within date range. Lab Value Units Date High Low HCGQT No results within date range. UHCG No results within date range. HCG, BODY* No results within date range. Lab Value Units Date High Low ABORHD No results within date range. ABSCREEN No results within date range. Hemoglobin A1C (%) Date Value 10/06/2023 6.0 05/23/2023 13.0 11/01/2022 13.6 Hemoglobin A1C (POCT) (%) Date Value 05/23/2023 13.9 06/29/2022 8.9 05/18/2022 9.7 04/13/2022 10.5 03/01/2022 10.7 Assessment/Plan Patient has the following medical conditions which may affect jessica-operative course Problem List Items Addressed This Visit Cardiovascular HLD (hyperlipidemia) Current Assessment & Plan No medication. Diet and lifestyle modification. HTN (hypertension) Current Assessment & Plan Amlodipine and Carvedilol. Continue as prescribed. Patient and sister are unsure of exact medications. Mixed hyperlipidemia Current Assessment & Plan No medication. Patient and sister are unsure of exact medications. Pulmonary MEKHI (obstructive sleep apnea) Current Assessment & Plan Patient states that he does not have a machine. Nephrology Hyperkalemia Current Assessment & Plan Recent K (04/26) 6.2 with no redraw in Epic. POC drawn in perioperative area was 4.4. Dr. Yancey of anesthesia aware and patient okay to proceed with procedure. Stage 3b chronic kidney disease (HCC) Current Assessment & Plan Creatinine Date Value Ref Range Status 04/26/2024 3.41 (H) 0.73 - 1.22 mg/dL Final BUN Date Value Ref Range Status 04/26/2024 59 (H) 9 - 24 mg/dL Final Estimated Glomerular Filtration Rate: 19.3 mL/min/1.73m2 (A) (by CKD-EPI based on SCr of 3.41 mg/dL (H)). Type 2 diabetes mellitus with stage 3b chronic kidney disease, with long-term current use of insulin (HCC) Current Assessment & Plan Farxiga, Humalog, Glargine, and Ozempic. Continue as prescribed. BS 128 on POC in perioperative area. Sister states that patient is very non-compliant with medication regimen. Hemoglobin A1C (%) Date Value 10/06/2023 6.0 Hemoglobin A1C (POCT) (%) Date Value 05/23/2023 13.9 Psychiatry Marijuana use Current Assessment & Plan Daily marijuana use. Denies use prior to arrival for procedure. Other Alcohol dependence (HCC) Current Assessment & Plan Patient and sister deny this. Patient states that he was a heavier drinking when he was "younger". Denies any recent use of alcohol. Nicotine use disorder, F17.2 Current Assessment & Plan Former cigarette smoker. Quit in 2010. Obesity, Class II, BMI 35-39.9 Current Assessment & Plan BMI 35.58 Pre-op examination - Primary Current Assessment & Plan see note for medical conditions which may affect jessica-operative course that were addressed at today's visit. Other Visit Diagnoses History of rectal cancer Relevant Orders COLONOSCOPY SCREENING Diagnosis: History of rectal cancer [Z85.048] Planned Procedure: Colonoscopy The Following Tests/Procedures Have Been Initiated: IV start and Maintenance fluid for the procedure. ANESTHESIA FINDINGS: Significant Anesthesia Considerations: None Planned Anesthetic: MAC I spent a total of 35 minutes on the date of the service which included preparing to see the patient, [id number] patient care, completing clinical documentation, obtaining and/or reviewing separately obtained history, and performing a medically appropriate examination. Instructions Given to Patient: Patient given verbal preop instructions and voices comprehension and compliance. SIGNATURE: Rebecca Corey APRN.CNP PATIENT NAME: José Manuel Ashton DATE: May 13, 2024 TIME: 10:56 AM PAGER/CONTACT #: [facility] 05-13-2024 History and physical note HISTORY AND PHYSICAL EXAMINATION SERVICE DATE: 05/13/2024 SERVICE TIME: 10:56 AM PRIMARY CARE PHYSICIAN: Bunny Scott MD REASON FOR VISIT: The reason for this visit is To perform a comprehensive review of the patients past medical history, assess their current health status and obtain any additional testing required based on anesthesia guidelines. To assess and identify potential anesthesia problems, particularly those that may suggest potential complications or contraindications to the planned procedure. 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 Patient here for routine colonoscopy for colon cancer screening. Patient states that he has had colonoscopies in the past. He also states that he has a history of rectal cancer. Patient denies N/V/D or constipation. Denies any abdominal pain. Denies any melena or hematochezia. Denies any other problems at this time. Endorses family history of colon cancer in brother. Patient is agreeable to planned procedure. METS: Walk indoors, such as around the house (1.75 METs) Patient denies any CP/SOB with above activity. 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 Detected on EMG Pseudophakia of both eyes 10/21/2022 Pseudophakia, left eye 08/18/2022 Rectal cancer (HCC) Refractive error 10/21/2022 Spinal stenosis of lumbar region with neurogenic claudication Vitamin D deficiency Vitreous syneresis of both eyes 10/21/2022 PAST SURGICAL HISTORY Procedure Laterality Date COLONOSCOPY GEN ANES 07/24/2020 Invasive Adenocarcinoma arising in a Tubulovillous Adenoma in the lower rectum, Tubular Adenomas, Fragment of Hyperplastic polyp, Internal Hemorrhoids EGD 07/24/2020 Will's Esophagus, Hyperplastic polyp in Duodenum EXCISION OF RECTAL TUMOR, TRANSANAL 11/24/2020 Dr. Ahmadi REMV CATARACT EXTRACAP,INSERT LENS Left 08/18/2022 REMV CATARACT EXTRACAP,INSERT LENS Right 09/08/2022 FAMILY HISTORY Problem Relation Age of Onset other (Heart stroke) Mother other (Glaucoma lung cancer) Father Leukemia Sister Glaucoma Sister Glaucoma Brother Colon Cancer Brother SOCIAL HISTORY: Social History Tobacco Use Smoking status: Former Current packs/day: 0.00 Average packs/day: 1 pack/day for 37.0 years (37.0 ttl pk-yrs) Types: Cigarettes Start date: 04/03/1973 Quit date: 04/03/2010 Years since quittin.1 Smokeless tobacco: Never Tobacco comments: Smokes [place] Vaping Use Vaping status: Never Used Substance Use Topics Alcohol use: Not Currently Drug use: Yes Types: Marijuana Comment: daily Prior to Admission medications as of 05/13/24 1101 Medication Sig Last Dose Taking amLODIPine (NORVASC) 5 mg tablet Take 1 tablet by mouth two times a day. 05/12/2024 Yes carvedilol (COREG) 25 mg tablet Take 1 tablet by mouth two times a day with meals. 05/12/2024 Yes sodium zirconium cyclosilicate (LOKELMA) 10 gram oral packet Take 1 Packet by mouth once daily. Mix powder in 45 mL of water, stir and drink immediately. ergocalciferol 50,000 unit capsule (VITAMIN D2, DRISDOL) Take 1 capsule by mouth one time a week. dapagliflozin propanediol (FARXIGA) 10 mg tablet Take 1 tablet by mouth daily with breakfast. diazePAM (VALIUM) 10 mg tablet Take 10 mg by mouth two times a day as needed for anxiety. insulin lispro (HUMALOG KWIKPEN INSULIN) 100 unit/mL Inject 8 Units subcutaneously three times a day before meals. SLIDING SCALE: bld sugar 60-124=0 units 125-150=2 units, 151-200=4 units, 201-250=6 untis 251-300=8 units, 301-350=10 units, 351-400=12 units cyclobenzaprine (FLEXERIL) 10 mg tablet Take 1 tablet by mouth three times a day as needed for muscle spasm. hydrALAZINE (APRESOLINE) 25 mg tablet Take 1 tablet by mouth two times a day. Patient not taking: Reported on 05/13/[address] (PROTONIX) 40 mg tablet Take 1 tablet by mouth once daily. doxazosin (CARDURA) 1 mg tablet Take 1 tablet by mouth daily at bedtime. DULoxetine (CYMBALTA) 30 mg capsule Take 1 capsule by mouth once daily. insulin glargine (BASAGLAR KWIKPEN U-100 INSULIN) 100 unit/mL (3 mL) Inject 24 Units subcutaneously daily at bedtime. insulin lispro (HUMALOG KWIKPEN) 100 unit/mL Inject 8 Units subcutaneously three times a day before meals. semaglutide (OZEMPIC) 0.25 mg or 0.5 mg(2 mg/1.5 mL) pen Inject 0.5 mg subcutaneously one time a week. Patient not taking: Reported on 05/13/2024 Not Taking pen needle,diabetic dual safty (BD AUTOSHIELD DUO PEN NEEDLE) 30 gauge x 3/16" ndle 1 Applicator four times daily. senna (SENOKOT) 8.6 mg tab Take 1 tablet by mouth once daily. Medication Comments documented by Simeon Hinds RN on 11/15/2023 at 1415. SEE EMAR FOR MEDICATIONS TAKEN LAST 04/19/21 07/31/20 The medications are managed by this patient by: PATIENT Miranda Lewis, OA 11/08/[address] Scott: "Patient to continue to use the SSI only, no regular scheduled Insulin dosing at this time." Patient's sister has been notified and verbalizes understanding." Richard Hinds RN ALLERGIES Allergen Reactions Penicillins Unknown Pt states he thinks he had a reaction as a child REVIEW OF SYSTEMS: PAIN ASSESSMENT: Pain Pain Level: 7 Acceptable level: 5 Pain Location: Back Pain Assessment: Assessment Description: Aching, Shooting, Cramping Duration: Continuous Intervention/Comfort measure: Reposition, Relaxation Tool: Verbal (Numeric Rating or Visual Analog Scale) General: Denies fever, chills, and unexpected weight change. Neuro: Denies dizziness and headaches. Respiratory: Denies SOB. +MEKHI Cardiovascular: Denies CP and palpitations. +HLD +HTN +CKD GI: See HPI. : Denies dysuria. Endocrine: No history of thyroid conditions. +DM Hematology: Denies history of bleeding or clotting disorder. No known autoimmune disorders. Psych: Denies anxiety/depression. Musculoskeletal: Denies joint pain and swelling. Skin: Denies open sores and rashes. Objective PHYSICAL EXAM: VITALS: BP 168/80 Temp (Src) 98.5 (Temporal) Resp 11 SpO2 98% O2 Therapy: Room Air General: NAD. Cooperative. Skin: Skin is warm, no rashes, and no open sores. HEENT: Normocephalic. Cardiovascular: Normal S1 & S2. No murmur. Lungs: CTA Bilaterally. No respiratory distress. Abdomen: Soft. Pos BS x4quad Extremities: No edema. Neurological: Alert and oriented to person, place, and time. Pulses: radial pulses +2 Diagnostic tests reviewed for today's visit: Lab Value Units Date High Low HB 11.0 g/dL 04/26/2024 17.0 13.0 HCT 34.2 % 04/26/2024 51.0 39.0 WBC 5.78 k/uL 04/26/2024 11.00 3.70 PLT 256 k/uL 04/26/2024 400 150 NA 141 mmol/L 04/26/2024 144 136 K 6.2 mmol/L 04/26/2024 5.1 3.7 GLUC 128 mg/dL 04/26/2024 99 74 BUN 59 mg/dL 04/26/2024 24 9 CREAT 3.41 mg/dL 04/26/2024 1.22 0.73 PTSEC No results within date range. INR No results within date range. APTT No results within date range. ALT No results within date range. AST No results within date range. TBILI No results within date range. TSH No results within date range. Lab Value Units Date High Low HCGQT No results within date range. UHCG No results within date range. HCG, BODY* No results within date range. Lab Value Units Date High Low ABORHD No results within date range. ABSCREEN No results within date range. Hemoglobin A1C (%) Date Value 10/06/2023 6.0 05/23/2023 13.0 11/01/2022 13.6 Hemoglobin A1C (POCT) (%) Date Value 05/23/2023 13.9 06/29/2022 8.9 05/18/2022 9.7 04/13/2022 10.5 03/01/2022 10.7 Assessment/Plan Patient has the following medical conditions which may affect jessica-operative course Problem List Items Addressed This Visit Cardiovascular HLD (hyperlipidemia) Current Assessment & Plan No medication. Diet and lifestyle modification. HTN (hypertension) Current Assessment & Plan Amlodipine and Carvedilol. Continue as prescribed. Patient and sister are unsure of exact medications. Mixed hyperlipidemia Current Assessment & Plan No medication. Patient and sister are unsure of exact medications. Pulmonary MEKHI (obstructive sleep apnea) Current Assessment & Plan Patient states that he does not have a machine. Nephrology Hyperkalemia Current Assessment & Plan Recent K (04/26) 6.2 with no redraw in Epic. POC drawn in perioperative area was 4.4. Dr. Yancey of anesthesia aware and patient okay to proceed with procedure. Stage 3b chronic kidney disease (HCC) Current Assessment & Plan Creatinine Date Value Ref Range Status 04/26/2024 3.41 (H) 0.73 - 1.22 mg/dL Final BUN Date Value Ref Range Status 04/26/2024 59 (H) 9 - 24 mg/dL Final Estimated Glomerular Filtration Rate: 19.3 mL/min/1.73m2 (A) (by CKD-EPI based on SCr of 3.41 mg/dL (H)). Type 2 diabetes mellitus with stage 3b chronic kidney disease, with long-term current use of insulin (HCC) Current Assessment & Plan Farxiga, Humalog, Glargine, and Ozempic. Continue as prescribed. BS 128 on POC in perioperative area. Sister states that patient is very non-compliant with medication regimen. Hemoglobin A1C (%) Date Value 10/06/2023 6.0 Hemoglobin A1C (POCT) (%) Date Value 05/23/2023 13.9 Psychiatry Marijuana use Current Assessment & Plan Daily marijuana use. Denies use prior to arrival for procedure. Other Alcohol dependence (HCC) Current Assessment & Plan Patient and sister deny this. Patient states that he was a heavier drinking when he was "younger". Denies any recent use of alcohol. Nicotine use disorder, F17.2 Current Assessment & Plan Former cigarette smoker. Quit in 2010. Obesity, Class II, BMI 35-39.9 Current Assessment & Plan BMI 35.58 Pre-op examination - Primary Current Assessment & Plan see note for medical conditions which may affect jessica-operative course that were addressed at today's visit. Other Visit Diagnoses History of rectal cancer Relevant Orders COLONOSCOPY SCREENING Diagnosis: History of rectal cancer [Z85.048] Planned Procedure: Colonoscopy The Following Tests/Procedures Have Been Initiated: IV start and Maintenance fluid for the procedure. ANESTHESIA FINDINGS: Significant Anesthesia Considerations: None Planned Anesthetic: MAC I spent a total of 35 minutes on the date of the service which included preparing to see the patient, [id number] patient care, completing clinical documentation, obtaining and/or reviewing separately obtained history, and performing a medically appropriate examination. Instructions Given to Patient: Patient given verbal preop instructions and voices comprehension and compliance. SIGNATURE: Rebecca Corey APRN.CNP PATIENT NAME: José Manuel Ashton DATE: May 13, 2024 TIME: 10:56 AM PAGER/CONTACT #: documented in this encounter [facility] 04-27-2024 Telephone encounter Note S: Patient's sister (Janell) spoke with [facility] nurse regarding medication problem / prior authorization B: Medication sent to pharmacy yesterday A: Sister calling to report Sodium Zirconium Cyclosilicate needs prior authorization. Dr. Scott called yesterday for him to start the medication based on his lab work. R: Per chart review, potassium levels critical high from yesterdays lab work. Secure chat message sent to Dr. Scott to see if a different medication could be used that doesn't require PA. Per Dr. Scott - "I'll call the pharmacy" Return call back to Janell with an update. Recommend calling the pharmacy in 1 hour to see if medication is ready. Any issues, please give the office a call back. Sister verbalizes understanding. Reason for Disposition [1] Caller has URGENT medicine question about med that PCP or specialist prescribed AND [2] triager unable to answer question Protocols used: Medication Question [id number] [facility] 04-27-2024 Miscellaneous Notes S: Patient's sister (Janell) spoke with [facility] nurse regarding medication problem / prior authorization B: Medication sent to pharmacy yesterday A: Sister calling to report Sodium Zirconium Cyclosilicate needs prior authorization. Dr. Scott called yesterday for him to start the medication based on his lab work. R: Per chart review, potassium levels critical high from yesterdays lab work. Secure chat message sent to Dr. Scott to see if a different medication could be used that doesn't require PA. Per Dr. Scott - "I'll call the pharmacy" Return call back to [facility] with an update. Recommend calling the pharmacy in 1 hour to see if medication is ready. Any issues, please give the office a call back. Sister verbalizes understanding. Reason for Disposition [1] Caller has URGENT medicine question about med that PCP or specialist prescribed AND [2] triager unable to answer question Protocols used: Medication Question [id number] documented in this encounter [facility] 04-26-[address] Dudley received a call from the lab patients potassium is 6.2 and he made several attempts to contact patient. He called the main number and the number for the brother Marek with no answers or call backs. I have also attempted to reach patient and find any additional numbers with no luck.he did send a prescription to his local pharmacy for Lokelma. We will continue to try and contact patient. [facility] 04-26-[address] Dudley received a call from the lab patients potassium is 6.2 and he made several attempts to contact patient. He called the main number and the number for the brother Marek with no answers or call backs. I have also attempted to reach patient and find any additional numbers with no luck.he did send a prescription to his local pharmacy for Lokelma. We will continue to try and contact patient. documented in this encounter [facility] 02-20-2024 Telephone encounter Note Surgery Checklist Type: COLONOSCOPY Admission Type: outpatient Anesthesia: MAC Date: 05/13/24 Arrival Time: 12:30 PM Surgery Time: 1:30 PM Location: [facility] Prep mailed to patient. Brittany Roberson [facility] 02-20-2024 Telephone encounter Note ----- Message from Brittany Dowling sent at 12/22/2023 11:46 AM EDT ----- Regarding: Schedule Colonoscopy Call and Schedule a Colonoscopy. [facility] 02-20-2024 Miscellaneous Notes Surgery Checklist Type: COLONOSCOPY Admission Type: outpatient Anesthesia: MAC Date: 05/13/24 Arrival Time: 12:30 PM Surgery Time: 1:30 PM Location: [facility] Prep mailed to patient. Brittany Roberson ----- Message from Brittany Dowling sent at 12/22/2023 11:46 AM EDT ----- Regarding: Schedule Colonoscopy Call and Schedule a Colonoscopy. documented in this encounter [facility] 01-24-2024 History of Present illness Narrative Chief complaint : Subjective : José Manuel Ashton is a 63 year old male seen for CKD follow up. SUBJECTIVE: José Manuel Ashton is a 63 year old White male with past medical history significant for : Type 2 diabetes, hypertension, hyperlipidemia, depression, colon to [facility] on 05/23/23 with polyp, lumbar radiculopathy, history of marijuana use in the past seen in follow up visit for [facility] Previous hospitalization : who presented with poorly controlled blood glucose and blood pressure. Blood glucose was more than 400 in the PCPs office was scented to the emergency room patient with associated generalized weakness and noncompliant with home medication. Patient with chronic back pain and nausea and vomiting. He stated that make him not to take any p.o. Blood pressure was elevated. Admission patient noted to have elevated BUN and creatinine. BUN was 1.89 previous baseline creatinine was 1.65 on 11/01/2022. With positive beta-hydroxybutyrate of 0.92 A1c of 13.0 Patient was diagnosed with acute kidney injury on chronic kidney disease stage III Versus underlying stage III chronic kidney disease with baseline creatinine around 1.9. Patient's creatinine stayed 1.9 and noted to be underlying stage III chronic kidney disease from diabetic nephropathy had nephrotic range proteinuria with albumin/creatinine history 5008 mg/g. Patient with type 2 diabetes and A1c was 13.0. Patient's workup revealed urine analysis with RBC of 6-10 and granular casts present. Kidney ultrasound no hydronephrosis bilateral symmetrical kidney and no increased echogenicity. Detailed workup for GN was ordered specially for nephrotic syndrome. 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 insulin lispro (HUMALOG KWIKPEN INSULIN) 100 unit/mL Inject 8 Units subcutaneously three times a day before meals. SLIDING SCALE: bld sugar 60-124=0 units 125-150=2 units, 151-200=4 units, 201-250=6 untis 251-300=8 units, 301-350=10 units, 351-400=12 units amLODIPine (NORVASC) 5 mg tablet Take 1 tablet by mouth two times a day. carvedilol (COREG) 25 mg tablet Take 1 tablet by mouth two times a day with meals. cyclobenzaprine (FLEXERIL) 10 mg tablet Take 1 tablet by mouth three times a day as needed for muscle spasm. hydrALAZINE (APRESOLINE) 25 mg tablet Take 1 tablet by mouth two times a day. pantoprazole DR (PROTONIX) 40 mg tablet Take 1 tablet by mouth once daily. doxazosin (CARDURA) 1 mg tablet Take 1 tablet by mouth daily at bedtime. DULoxetine (CYMBALTA) 30 mg capsule Take 1 capsule by mouth once daily. insulin glargine (BASAGLAR KWIKPEN U-100 INSULIN) 100 unit/mL (3 mL) Inject 24 Units subcutaneously daily at bedtime. insulin lispro (HUMALOG KWIKPEN) 100 unit/mL Inject 8 Units subcutaneously three times a day before meals. semaglutide (OZEMPIC) 0.25 mg or 0.5 mg(2 mg/1.5 mL) pen Inject 0.5 mg subcutaneously one time a week. pen needle,diabetic dual safty (BD AUTOSHIELD DUO PEN NEEDLE) 30 gauge x 3/16" ndle 1 Applicator four times daily. senna (SENOKOT) 8.6 mg tab Take 1 tablet by mouth once daily. dapagliflozin propanediol (FARXIGA) 10 mg tablet Take 1 tablet by mouth daily with breakfast. No current facility-administered medications for this visit. Social History Tobacco Use Smoking status: Former Current packs/day: 0.00 Average packs/day: 1 pack/day for 37.0 years (37.0 ttl pk-yrs) Types: Cigarettes Start date: 04/03/1973 Quit date: 04/03/2010 Years since quittin.8 Smokeless tobacco: Never Tobacco comments: Smokes [place] Vaping Use Vaping status: Never Used Substance Use Topics Alcohol use: Not Currently Drug use: Yes Types: Marijuana Comment: daily PAST SURGICAL HISTORY Procedure Laterality Date COLONOSCOPY GEN ANES 07/24/2020 Invasive Adenocarcinoma arising in a Tubulovillous Adenoma in the lower rectum, Tubular Adenomas, Fragment of Hyperplastic polyp, Internal Hemorrhoids EGD 07/24/2020 Will's Esophagus, Hyperplastic polyp in Duodenum EXCISION OF RECTAL TUMOR, TRANSANAL 11/24/2020 Dr. Ahmadi REMV CATARACT EXTRACAP,INSERT LENS Left 08/18/2022 REMV CATARACT EXTRACAP,INSERT LENS Right 09/08/2022 FAMILY HISTORY Problem Relation Age of Onset other (Heart stroke) Mother other (Glaucoma lung cancer) Father Leukemia Sister Glaucoma Sister Glaucoma Brother FAMILY HISTORY OF: CVA:No CAD: No DIABETES: No HTN: No KIDNEY DISEASE: No NEPHROLITHIASIS: No REVIEW OF SYSTEMS: CONSTITUTIONAL: Denies fevers, chills, and weight changes. Denies fatigue/malaise. EYES: No acute vision change or ocular pain. Denies dryness or redness of eyes. ENT: No difficulties with hearing. No sinus pain or sore throat.No epistaxis, nasal discharge/congestion. No dry mouth, oral ulceration, or gingivitis. PULMONARY: Denies shortness of breath, wheezing, cough or hemoptysis. CARDIOLOGY: Denies chest pain, palpitations, OTT, orthopnea or PND. GI: No anorexia, nausea, vomiting, dysphagia, diarrhea, constipation, abdominal pain, hematochezia or melena. : No urinary hesitancy or dribbling. No nocturia or urinary frequency. No abnormal discharge. No hematuria, dysuria, or flank pain. MUSCULO-SKELETAL: No joint pain, swelling or erythema. ENDO: Denies any Cold or Heat Intolerance. Denies any polyuria or polydipsia. HEME: Denies any bleeding problems, clotting problems or easy Bruising. SKIN: Denies any rashes or skin changes. No itching. NEUROLOGIC: Denies any headache, Dizziness or seizures. No numbness, tingling, weakness or tremors. EXTREMITIES: Denies any lower Extremity edema. Denies any claudication or peripheral ulcer. [A full 12 point ROS was obtained and is negative other than that cited above.] PHYSICAL EXAMINATION: BP 192/98 Pulse 75 Ht 172.7 cm (5' 8") Wt 106.1 kg (234 lb) BMI 35.58 kg/m BMI 35.58 kg/(m^2) GENERAL: Well developed and well nourished, NAD. EYES: Conjunctivae- pink, Non-icterus sclera. HEENT : Normocephalic, atraumatic, oral pharynx clear, MMM and pink. NECK : Supple, No JVD. No cervical lymphadenopathy or masses. No thyromegaly or tenderness. RESPIRATORY: Resp efforts are WNL. Bilat equal air entry. CTA bilaterally CVS : Pericardial friction rub is absent. S1, S2 Normal. No Murmer, or gallops. EDEMA none VASCULAR: carotid pulses is palpable bilaterally; carotid bruit is absent; No Abdominal bruit. Peripheral pulse palpable . ABDOMEN: soft, non-distended, non-tender, Normoactive BS. No HSM. : NO CVA tenderness. bladder is not distended. SKIN: No rashes or ulcers present. No induration of skin or subcutaneous area. LAB DATA Latest Ref Rng 05/24/2023 05/25/2023 Albumin 3.43 - 5.41 g/dL 3.20 (L) Alpha 1 Globulin 0.18 - 0.43 g/dL 0.35 Alpha 2 Globulin 0.42 - 0.98 g/dL 1.08 (H) Beta Globulin 0.61 - 1.17 g/dL 0.90 Gamma Globulin 0.53 - 1.51 g/dL 0.47 (L) Interpretation (Prot Electro) No definitive M protein is identified on protein electrophoresis. No definitive M protein is identified on protein electrophoresis. M-Protein Location -- M-Protein Concentration <=0.00 g/dL 0.00 SPE Staff Review Reviewed by Sebas Ocampo MD, Ph.D ([id number]) Comment (Serum Prot Electro) A reflex test for Monoclonal Protein analysis (immunofixation) has been ordered. Interpretation Comment for Protein Electrophoresis Hypogammaglobulinemia is present, which can be seen in the setting of monoclonal gammopathy. If clinically indicated, monoclonal protein analysis and serum free light chain analysis are suggested to evaluate further for monoclonal gammopathy. Creatinine, Ur Random (UCRR) 20.0 - 300.0 mg/dL 74.2 Albumin, Urine Random mg/L 3,715.7 Albumin/Creat Ratio <30 mg/g 5,008 (H) [place] Free, Serum 3.3 - 19.4 mg/L 57.0 (H) Lambda Free, Serum 5.7 - 26.3 mg/L 36.1 (H) K/L Ratio, Serum 0.26 - 1.65 1.58 DNA Antibody <=200 IU/mL 16 DNA Antibody Qualitative Interpretation Negative Negative MPA Result No M protein is identified. No M protein is identified. Staff Review (MPA) Reviewed by Sebas Ocampo MD, Ph.D ([id number]) C3 86 - 166 mg/dL 147 C4 13 - 46 mg/dL 26 Phospholipase A2 Receptor, FABIENNE, S RU/mL <2 JAMARCUS Negative Negative Protein, Total 6.3 - 8.0 g/dL 6.0 (L) PLA2R. Immunofluorescence, S Negative Negative THSD7A Ab, S Negative Negative Lab work on 06/13/2023. Sodium 141 potassium 4.7 CO2 26 BUN 46 creatinine 2.17 glucose 158 calcium 8.6 GFR 33 A/P 1. chronic kidney disease stage III with baseline creatinine now around 1.9-2.2 mg/dL with GFR of 40 mill per minute, . Most likely in the setting of diabetic nephropathy 2. Type 2 diabetes, uncontrolled last A1c 13.0 3. Hyperparathyroidism 4. Hyponatremia likely pseudohyponatremia in the setting of hyperglycemia 5. Hyperlipidemia 6. Hypertension 7. Anemia Plan of management: Last Labs 09/24 : K 4.5 Cr 1.69 GFR 45 Check CKD labs today , Patient with underlying stage III chronic kidney disease GFR between 33-40 mill per minute and creatinine 1.9 to 2.2 mg deciliter. Likely in the setting of diabetic kidney disease, last A1c 13.0 on 05/23/2023, last A1c 7.7 per glucometer Patient have not done chronic kidney disease workup of prior to this visit Previous nephrotic syndrome workup was unremarkable suggestive most likely diabetic kidney disease Amlodipine 5 mg po BID Coreg 25 mg po BID hydrALAZINE (APRESOLINE) 25 mg tablet Take 1 tablet by mouth two times a day. furosemide (LASIX) 20 mg tablet Take 1 tablet by mouth daily after lunch. Had episode of hyperkalemia in September and was treated with SPS and losartan was stoppedLosartan 50 mg po qhs add based on blood work Add Farxiga 10 mg po Daily ( 01/24/24) ( will check labs ) Instructions Regular monitoring of renal function Aggressive blood pressure control Avoid smoking and secondhand smoke Avoidance of nephrotoxins - IV contrast, nonsteroidal anti-inflammatory agents Avoid excessive salt and protein intake Fluid restriction and dietary modifications as directed Counseled on weight loss. Exercise - walk 3-4 times per week. Follow up as scheduled to review test results Continue meds as prescribed. Low salt diet. Return in 6 months (on 07/24/2024). documented in this encounter [facility] 12-29-2023 Note HNO ID: [id number] Author: RENETTA GANNON MD Service: ? 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, with long-term current use of insulin (HCC) (primary encounter diagnosis) Comment: MUCH improved control Hemoglobin A1C (%) Date Value 10/06/2023 6.0 Hemoglobin A1C (POCT) (%) Date Value 05/23/2023 13.9 Plan: Stressed continued importance of compliance (Z96.1) Pseudophakia of both eyes Comment: Clear, patient very happy; h/o steroid response post-op Plan: Monitor JANELL [phone] (sister, contact) (Z32.6878) Early dry stage nonexudative age-related macular degeneration of both eyes Comment: Mottling, no fluid Plan: Monitor RTC 9 months diabetic check I have confirmed and edited as necessary the relevant ophthalmic history, ROS, and the neuro exam findings as obtained by others. I have seen and examined this patient. I have discussed the case and the management of this patient's care with the Resident/Fellow/Insulation Mechanic, if applicable. I also have reviewed and agree with the assessment and plan as stated above and agree with all of its relevant components. 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, with long-term current use of insulin (HCC) (primary encounter diagnosis) Comment: MUCH improved control Hemoglobin A1C (%) Date Value 10/06/2023 6.0 Hemoglobin A1C (POCT) (%) Date Value 05/23/2023 13.9 Plan: Stressed continued importance of compliance (Z96.1) Pseudophakia of both eyes Comment: Clear, patient very happy; h/o steroid response post-op Plan: Monitor JANELL [phone] (sister, contact) (Y70.9637) Early dry stage nonexudative age-related macular degeneration of both eyes Comment: Mottling, no fluid Plan: Monitor RTC 9 months diabetic check I have confirmed and edited as necessary the relevant ophthalmic history, ROS, and the neuro exam findings as obtained by others. I have seen and examined this patient. I have discussed the case and the management of this patient's care with the Resident/Fellow/Insulation Mechanic, if applicable. I also have reviewed and agree with the assessment and plan as stated above and agree with all of its relevant components. Renetta Gannon MD December 29, 2023 4:16 PM documented in this encounter [facility] 12-22-2023 Telephone encounter Note PT called to cancel appointment 01/21, stating that he did not need to see Brent due to him having an appointment w/ a refrigeration insulator.Reiterated to the PT last appointment orders and that issue brent was seeing for is recommended to keep appointment w/ urology. PT still refused cancelled appointment. Noah Mejia [facility] 12-22-2023 Miscellaneous Notes PT called to cancel appointment 01/21, stating that he did not need to see Brent due to him having an appointment w/ a refrigeration insulator.Reiterated to the PT last appointment orders and that issue brent was seeing for is recommended to keep appointment w/ urology. PT still refused cancelled appointment. Noah Mejia documented in this encounter [facility] 12-18-2023 Telephone encounter Note Called the patient and left a voice message asking the patient to call the office back to schedule his Screening Colonoscopy. Brittany Roberson [facility] 12-18-2023 Miscellaneous Notes Called the patient and left a voice message asking the patient to call the office back to schedule his Screening Colonoscopy. Brittany Roberson documented in this encounter [facility] 11-20-2023 Miscellaneous Notes SITUATION: only patient present during today's visit. patient reports the following since the last homecare visit: medications/allergies--no changes, no fall. patient reports he is slowly getting better but wishes it would go faster. BACKGROUND: Diagnoses (reason for Home Care): Primary Dx: Encounter for other orthopedic aftercare [Z47.89] Weight Bearing/Precaution Changes: no changes, spinal ASSESSMENT: Focus of visit: HEP, functional mobility, PT discipline DC Physical therapy discharged: goals partially achieved. Functional performance at discharge - bed mobility independent, transfers independent, ambulation supervision begin OP PT 11/21/23. Plan of care, goals, and discharge reviewed and agreed upon with patient and/or caregiver. RECOMMENDATION: Patient discharged from home health services. Instructions to include:home exercise program as directed, follow the recommended ambulation program and follow weight bearing restrictions See intervention summary for intervention/education details. documented in this encounter [facility] 11-20-2023 Patient's home Note SITUATION: only patient present during today's visit. patient reports the following since the last homecare visit: medications/allergies--no changes, no fall. patient reports he is slowly getting better but wishes it would go faster. BACKGROUND: Diagnoses (reason for Home Care): Primary Dx: Encounter for other orthopedic aftercare [Z47.89] Weight Bearing/Precaution Changes: no changes, spinal ASSESSMENT: Focus of visit: HEP, functional mobility, PT discipline DC Physical therapy discharged: goals partially achieved. Functional performance at discharge - bed mobility independent, transfers independent, ambulation supervision begin OP PT 11/21/23. Plan of care, goals, and discharge reviewed and agreed upon with patient and/or caregiver. RECOMMENDATION: Patient discharged from home health services. Instructions to include:home exercise program as directed, follow the recommended ambulation program and follow weight bearing restrictions See intervention summary for intervention/education details. [facility] Work Phone: 11-17-2023 Telephone encounter Note Unable to reach patient by phone to schedule P.T. visit. [facility] Work Phone: 11-17-2023 Miscellaneous Notes Unable to reach patient by phone to schedule P.T. visit. documented in this encounter [facility] 11-17-2023 Miscellaneous Notes Called all numbers listed for patient and left voice messages. Patient/caregiver did not return phone calls. documented in this encounter [facility] 11-17-2023 Plan of care note Called all numbers listed for patient and left voice messages. Patient/caregiver did not return phone calls. [facility] Work Phone: 11-17-2023 Miscellaneous Notes SN contacted Dr. Scott's office, no answer, VM left on nurse line with patient's name, , and message that this patient has been discharged from [facility]-goals met. Call back number of [phone]. documented in this encounter [facility] 11-17-2023 Patient's home Note SN contacted Dr. Scott's office, no answer, VM left on nurse line with patient's name, , and message that this patient has been discharged from skilled home [facility]-goals met. Call back number of [phone]. [facility] Work Phone: 11-16-2023 Miscellaneous Notes SITUATION: [facility] Disc[facility] Discharge visit completed today. only patient also present during today's visit. patient reports the following changes since the last homecare visit: Allergies--reviewed Medications--full medication reconciliation completed Falls--none BACKGROUND:anxiety, DM2 Reason for Home Care:Radiculopathy, lumbar region ASSESSMENT: SN greeted at door by patient If you select Patient: Patient utilizing utilizing cane and demonstrates stable gait. Patient appears in no acute distress. Patient/CG concerns verbalized today: groin hurts from a strain doing exercises Vitals (see flow sheet for details):WDL SN findings today: Patient's incision to back is healed. No drainage, no redness or any s/s infection. 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 States his groin is hurting since he strained it when doing exercises the other day. States he let his PT know & they instructed him not to do certain exercises for a few days. He cont to monitor blood sugars using dexcom meter. States he has been watching his diet more & blood sugars have improved His sister cont to fill weekly pill box He is supposed to begin some outpatient PT Tues next week & sister will take him. States he wants to speak to his home PT re: this & will talk to that PT tomorrow See intervention summary for education details and any skills performed. Specific SN discharge instructions: SN reviewed medications, safety/fall prevention measures, s/s HTN, s/s sepsis, reviewed no added salt diet, balanced CHO diet, diabetic management, how to treat high or low blood sugars. He verbalized understanding Patient encouraged to take all medication as ordered, eat a well-balanced diet and follow up with all physician appointments. Additional follow ups recommended: none NOMNC: signed and present on EMR Discharged due to Goals met. SN emailed technical mgrGirma herman RN re: SNKIRK today, asked if she would report this to Dr Scott since she is not in [employer] system RECOMMENDATION: Patient to continue with PT services. documented in this encounter [facility] 11-16-2023 Patient's home Note SITUATION: Halfway Discipline Discharge visit completed today. only patient also present during today's visit. patient reports the following changes since the last homecare visit: Allergies--reviewed Medications--full medication reconciliation completed Falls--none BACKGROUND:anxiety, DM2 Reason for Home Care:Radiculopathy, lumbar region ASSESSMENT: SN greeted at door by patient If you select Patient: Patient utilizing utilizing cane and demonstrates stable gait. Patient appears in no acute distress. Patient/CG concerns verbalized today: groin hurts from a strain doing exercises Vitals (see flow sheet for details):WDL SN findings today: Patient's incision to back is healed. No drainage, no redness or any s/s infection. 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 States his groin is hurting since he strained it when doing exercises the other day. States he let his PT know & they instructed him not to do certain exercises for a few days. He cont to monitor blood sugars using dexcom meter. States he has been watching his diet more & blood sugars have improved His sister cont to fill weekly pill box He is supposed to begin some outpatient PT Tues next week & sister will take him. States he wants to speak to his home PT re: this & will talk to that PT tomorrow See intervention summary for education details and any skills performed. Specific SN discharge instructions: SN reviewed medications, safety/fall prevention measures, s/s HTN, s/s sepsis, reviewed no added salt diet, balanced CHO diet, diabetic management, how to treat high or low blood sugars. He verbalized understanding Patient encouraged to take all medication as ordered, eat a well-balanced diet and follow up with all physician appointments. Additional follow ups recommended: none NOMNC: signed and present on EMR Discharged due to Goals met. SN emailed technical mgrGirma herman RN re: SNDD today, asked if she would report this to Dr Scott since she is not in [employer] system RECOMMENDATION: Patient to continue with PT services. [facility] Work Phone: 11-15-2023 Miscellaneous Notes SN received a return fax from Dr. Scott dated 11/08/23 stating: Patient to continue with Sliding Scale INsulin only." No regularly scheduled Insulin dosing." This Sn then called sister "Janell" to inform her of this message. She states "that is what he has been doing." Ster verbalizes understanding. documented in this encounter [facility] 11-15-2023 Patient's home Note SN received a return fax from Dr. Scott dated 11/08/23 stating: Patient to continue with Sliding Scale INsulin only." No regularly scheduled Insulin dosing." This Sn then called sister "Janell" to inform her of this message. She states "that is what he has been doing." Ster verbalizes understanding. [facility] Work Phone: 11-15-2023 Miscellaneous Notes 11/15/23 11:16 AM - 11:20 AM FORGER HELPER received a phone call from the pt.'s sister Janell Waldrop and she stated that they did not complete the paperwork for PASSPORT due to she stated they did not think the pt. would qualify. FORGER HELPER asked the pt.'s sister if the pt. was able to bath himself. She stated that he is able to take his own shower. She stated she sets up his meds and he is able to get his meals. She stated that she took him grocery shopping yesterday, FORGER HELPER asked the pt.'s sister about transportation for the pt. to go to Outpatient Therapy. The pt.'s sister stated he goes on Monday and she is take him. The pt.'s sister stated she will transport the pt. to his Outpatient Therapy and they are aware of [facility]. She stated that the pt. was doing alot better. FORGER HELPER informed the pt.'s sister to call FORGER HELPER with any needs. documented in this encounter [facility] 11-15-2023 Patient's home Note 11/15/23 11:16 AM - 11:20 AM FORGER HELPER received a phone call from the pt.'s sister Janell Waldrop and she stated that they did not complete the paperwork for PASSPORT due to she stated they did not think the pt. would qualify. FORGER HELPER asked the pt.'s sister if the pt. was able to bath himself. She stated that he is able to take his own shower. She stated she sets up his meds and he is able to get his meals. She stated that she took him grocery shopping yesterday, FORGER HELPER asked the pt.'s sister about transportation for the pt. to go to Outpatient Therapy. The pt.'s sister stated he goes on Monday and she is take him. The pt.'s sister stated she will transport the pt. to his Outpatient Therapy and they are aware of [facility]. She stated that the pt. was doing alot better. FORGER HELPER informed the pt.'s sister to call FORGER HELPER with any needs. [facility] Work Phone: 11-14-2023 Miscellaneous Notes 11/14/23 11:51 AM - 11:53 AM FORGER HELPER called the pt.'s sister Janell and left her a message that FORGER HELPER was calling regarding if the pt. had a PASSPORT assessment and regarding transportation for Outpatient Therapy. FORGER HELPER left her name and phone number for the pt.'s sister to call FORGER HELPER back. documented in this encounter [facility] 11-14-2023 Patient's home Note 11/14/23 11:51 AM - 11:53 AM FORGER HELPER called the pt.'s sister Janell and left her a message that FORGER HELPER was calling regarding if the pt. had a PASSPORT assessment and regarding transportation for Outpatient Therapy. FORGER HELPER left her name and phone number for the pt.'s sister to call FORGER HELPER back. [facility] Work Phone: 11-14-2023 Miscellaneous Notes SITUATION: only patient present during today's visit. patient reports the following since the last homecare visit: medications/allergies--no changes, no fall. patient reports he was feeling ambituous and did extra squats and extra walking laps yesterday when working on his HEP, states he "over did it" is sore today as a result. Agreeable to PT. Patient states that before " over doing it" yesterday, he has been noticing functional improvement, improved balance and ambulation ability. States yesterday he was able to walk all the way to his elevator, out to parking lot with and to the car with only his cane. (something he usually requires a RW to perform). BACKGROUND: Diagnoses (reason for Home Care): Primary Dx: Encounter for other orthopedic aftercare [Z47.89] Weight Bearing/Precaution Changes: no changes, spinal ASSESSMENT: Focus of visit : HEP review to ensure understandign, held on squats this date from patient still sore from squats/extra reps yesteraday per his account. Gait training, balance training. Tug test trial 1: large based SPC, 39.08 secs. tug test trial 2: large based SPC, 33.67 secs. No complaints of SOB/chest pain; patient does not appear to be in acute distress. Patient reported comfort with the visit Plan of care, goals, and visit frequency reviewed and agreed upon with patient and/or caregiver. Current Discharge Plan: OP PT Anticipate discharge by 11/17/23 RECOMMENDATION: Next visit to focus on posible PT d/c See intervention summary for intervention/education details. documented in this encounter [facility] 11-14-2023 Patient's home Note SITUATION: only patient present during today's visit. patient reports the following since the last homecare visit: medications/allergies--no changes, no fall. patient reports he was feeling ambituous and did extra squats and extra walking laps yesterday when working on his HEP, states he "over did it" is sore today as a result. Agreeable to PT. Patient states that before " over doing it" yesterday, he has been noticing functional improvement, improved balance and ambulation ability. States yesterday he was able to walk all the way to his elevator, out to parking lot with and to the car with only his cane. (something he usually requires a RW to perform). BACKGROUND: Diagnoses (reason for Home Care): Primary Dx: Encounter for other orthopedic aftercare [Z47.89] Weight Bearing/Precaution Changes: no changes, spinal ASSESSMENT: Focus of visit : HEP review to ensure understandign, held on squats this date from patient still sore from squats/extra reps yesteraday per his account. Gait training, balance training. Tug test trial 1: large based SPC, 39.08 secs. tug test trial 2: large based SPC, 33.67 secs. No complaints of SOB/chest pain; patient does not appear to be in acute distress. Patient reported comfort with the visit Plan of care, goals, and visit frequency reviewed and agreed upon with patient and/or caregiver. Current Discharge Plan: OP PT Anticipate discharge by 11/17/23 RECOMMENDATION: Next visit to focus on posible PT d/c See intervention summary for intervention/education details. [facility] Work Phone: 11-13-2023 Miscellaneous Notes SITUATION: OT discharge visit only patient present during today's visit. patient reports the following since the last homecare visit: medications/allergies--no changes, no fall. patient reports he was able to take shower on his own over the weekend with sister present in apt but did not help . BACKGROUND: Diagnoses or reason for Home Care: Radiculopathy, lumbar region ASSESSMENT: Focus of visit: review of goals and assess for dc Occupational therapy discharged: goals achieved. Functional Performance at discharge: pt is indep with grooming, dressing, bathing, toileting meal prep. Pt indep with transfers to toilet and to shower. Pt indep with UE HEP Plan of care, goals, and discharge reviewed and agreed upon with patient/caregiver. RECOMMENDATION: Instructions include: discharged from OT and is active with OT. Post dc recommendations: continue with ue hep daily sister to be present in apt for shower level bathing See intervention summary for intervention/education details. documented in this encounter [facility] 11-13-2023 Patient's home Note SITUATION: OT discharge visit only patient present during today's visit. patient reports the following since the last homecare visit: medications/allergies--no changes, no fall. patient reports he was able to take shower on his own over the weekend with sister present in apt but did not help . BACKGROUND: Diagnoses or reason for Home Care: Radiculopathy, lumbar region ASSESSMENT: Focus of visit: review of goals and assess for dc Occupational therapy discharged: goals achieved. Functional Performance at discharge: pt is indep with grooming, dressing, bathing, toileting meal prep. Pt indep with transfers to toilet and to shower. Pt indep with UE HEP Plan of care, goals, and discharge reviewed and agreed upon with patient/caregiver. RECOMMENDATION: Instructions include: discharged from OT and is active with OT. Post dc recommendations: continue with ue hep daily sister to be present in apt for shower level bathing See intervention summary for intervention/education details. [facility] Work Phone: 11-10-2023 Telephone encounter Note S: Patient sister called the clinical access center with complaint of Questions about G7 Dexcom. B: Ongoing unsure if the reader will seed cone picker the blood sugar reading when he places the new G7 A: Patient c/o trying to put new G7 sensor on. Asking if the reader will work when they replace the sensor. R: Advised the reader should automatically seed cone picker with the new G7 sensor. If any issues would need to call Dexcom for advice. Home Care advice given. Patient instructed to call back with worsening symptoms, concerns or questions. Patient verbalized understanding. Message to the office for review by the provider and needs recommendation from Provider for treatment going forward. Reason for Disposition Caller has medicine question only, adult not sick, AND triager answers question Protocols used: Medication Question [id number] [facility] 11-10-2023 Miscellaneous Notes S: Patient sister called the clinical access center with complaint of Questions about G7 Dexcom. B: Ongoing unsure if the reader will seed cone picker the blood sugar reading when he places the new G7 A: Patient c/o trying to put new G7 sensor on. Asking if the reader will work when they replace the sensor. R: Advised the reader should automatically seed cone picker with the new G7 sensor. If any issues would need to call Dexcom for advice. Home Care advice given. Patient instructed to call back with worsening symptoms, concerns or questions. Patient verbalized understanding. Message to the office for review by the provider and needs recommendation from Provider for treatment going forward. Reason for Disposition Caller has medicine question only, adult not sick, AND triager answers question Protocols used: Medication Question [id number] documented in this encounter [facility] 11-10-2023 Miscellaneous Notes SITUATION: Halfway routine visit completed today. SISTER also present during today's visit. caregiver reports the following: Allergies--reviewed Medications--full medication reconciliation completed Falls--None DME-Reviewed and added to chart BACKGROUND: HTN, DM2, Anxiety Reason for Home Care: Radiculopathy, lumbar region ASSESSMENT: SN greeted at door by caregiver. Upon entrance patient found in chair Patient appears in no acute distress. Patient/CG concerns verbalized today: none Vitals (see flow sheet for details): stable SN findings today: Patient reports he just finished his exercises. States he has been doing them 2x/day. States back pain gradually improving Back incision has 2 very small scabs noted, no drainage, no s/s infection, periwound skin intact. He cont to ambulate using cane No edema SN assisted his sister on applying new dexcom sensor & pairing it with the device. SN reviewed diabetic eduation book, focusing on balanced CHO diet, portion sizes. He admits that last night he had mac & cheese & this may be why his blood sugar was up to 206 at 11:30pm last night. This am [id number]. Patient denies any s/s HTN See intervention summary for education details. Patient demonstrated a need for further skilled SN services for chronic disease management & education and safety. Current Discharge plan: family support RECOMMENDATION: Next visit to focus on (be specific): SNDD documented in this encounter [facility] 11-10-2023 Patient's home Note SITUATION: Halfway routine visit completed today. SISTER also present during today's visit. caregiver reports the following: Allergies--reviewed Medications--full medication reconciliation completed Falls--None DME-Reviewed and added to chart BACKGROUND: HTN, DM2, Anxiety Reason for Home Care: Radiculopathy, lumbar region ASSESSMENT: SN greeted at door by caregiver. Upon entrance patient found in chair Patient appears in no acute distress. Patient/CG concerns verbalized today: none Vitals (see flow sheet for details): stable SN findings today: Patient reports he just finished his exercises. States he has been doing them 2x/day. States back pain gradually improving Back incision has 2 very small scabs noted, no drainage, no s/s infection, periwound skin intact. He cont to ambulate using cane No edema SN assisted his sister on applying new dexcom sensor & pairing it with the device. SN reviewed diabetic eduation book, focusing on balanced CHO diet, portion sizes. He admits that last night he had mac & cheese & this may be why his blood sugar was up to 206 at 11:30pm last night. This am [id number]. Patient denies any s/s HTN See intervention summary for education details. Patient demonstrated a need for further skilled SN services for chronic disease management & education and safety. Current Discharge plan: family support RECOMMENDATION: Next visit to focus on (be specific): SNDD [facility] Work Phone: 11-09-2023 Miscellaneous Notes SITUATION: only patient present during today's visit. patient reports the following since the last homecare visit: medications/allergies--no changes, no fall. patient reports he still get sosre in his lowback, but tolerable. States a little stiff this AM, but agreeable to PT. reports comliance to HeP. BACKGROUND: Diagnoses (reason for Home Care): Primary Dx: Encounter for other orthopedic aftercare [Z47.89] Weight Bearing/Precaution Changes: no changes, spinal ASSESSMENT: Focus of visit HEP reivew, progression to include SLS after positive/ safe return demo. Gait training along railing in hallways to improve velocity and step length. No complaints of SOB/chest pain; patient does not appear to be in acute distress. Patient reported comfort with the visit. Plan of care, goals, and visit frequency reviewed and agreed upon with patient and/or caregiver. Current Discharge Plan: family support Anticipate discharge by 11/16 RECOMMENDATION: Next visit to focus on gait training See intervention summary for intervention/education details. documented in this encounter [facility] 11-09-2023 Patient's home Note SITUATION: only patient present during today's visit. patient reports the following since the last homecare visit: medications/allergies--no changes, no fall. patient reports he still get sosre in his lowback, but tolerable. States a little stiff this AM, but agreeable to PT. reports comliance to HeP. BACKGROUND: Diagnoses (reason for Home Care): Primary Dx: Encounter for other orthopedic aftercare [Z47.89] Weight Bearing/Precaution Changes: no changes, spinal ASSESSMENT: Focus of visit HEP reivew, progression to include SLS after positive/ safe return demo. Gait training along railing in hallways to improve velocity and step length. No complaints of SOB/chest pain; patient does not appear to be in acute distress. Patient reported comfort with the visit. Plan of care, goals, and visit frequency reviewed and agreed upon with patient and/or caregiver. Current Discharge Plan: family support Anticipate discharge by 11/16 RECOMMENDATION: Next visit to focus on gait training See intervention summary for intervention/education details. [facility] Work Phone: 11-07-2023 Miscellaneous Notes SITUATION: sister present during today's visit. patient reports the following since the last homecare visit: medications/allergies--taking 2 new meds, message sent to , no fall. patient reports that he saw his PCP this AM, states he has been walking more. reports understanding of spinal precs. Agreeable to PT. BACKGROUND: Diagnoses (reason for Home Care): Primary Dx: Encounter for other orthopedic aftercare [Z47.89] Weight Bearing/Precaution Changes: no changes, spinal precs ASSESSMENT: Focus of visit HEP reivew, gait training, balance progressions in standing. Patient reported positive muscular challene with interventions. No complaints of SOB/chest pain; patient does not appear to be in acute distress. Patient reported comfort with the visit. Plan of care, goals, and visit frequency reviewed and agreed upon with patient and/or caregiver. Current Discharge Plan: independent with home exercise program Anticipate discharge by tbd RECOMMENDATION: Next visit to focus on gait training, increase reps on ther ex See intervention summary for intervention/education details. documented in this encounter [facility] 11-07-2023 Patient's home Note SITUATION: sister present during today's visit. patient reports the following since the last homecare visit: medications/allergies--taking 2 new meds, message sent to , no fall. patient reports that he saw his PCP this AM, states he has been walking more. reports understanding of spinal precs. Agreeable to PT. BACKGROUND: Diagnoses (reason for Home Care): Primary Dx: Encounter for other orthopedic aftercare [Z47.89] Weight Bearing/Precaution Changes: no changes, spinal precs ASSESSMENT: Focus of visit HEP reivew, gait training, balance progressions in standing. Patient reported positive muscular challene with interventions. No complaints of SOB/chest pain; patient does not appear to be in acute distress. Patient reported comfort with the visit. Plan of care, goals, and visit frequency reviewed and agreed upon with patient and/or caregiver. Current Discharge Plan: independent with home exercise program Anticipate discharge by tbd RECOMMENDATION: Next visit to focus on gait training, increase reps on ther ex See intervention summary for intervention/education details. [facility] Work Phone: 11-07-2023 Miscellaneous Notes Patient's sister cancelled vs for today, patient has PCP appt. She said to make next SN vs FRI this week. SN Notified home health care case managermgr Girma Hinds RN, She will fax Dr Scott re: missed vs as she is not in [employer] system documented in this encounter [facility] 11-07-2023 Patient's home Note Patient's sister cancelled vs for today, patient has PCP appt. She said to make next SN vs FRI this week. SN Notified home health care case managermgr Girma Hinds RN, She will fax Dr Scott re: missed vs as she is not in [employer] system [facility] Work Phone: 11-06-2023 Miscellaneous Notes SITUATION: OT routine with bath only patient present during today's visit. patient reports the following since the last homecare visit: medications/allergies--no changes, no fall. patient reports he has been working on both PT and OT hep daily. He reports he has a MD appt tomorrow due to high potassium. BACKGROUND: Diagnoses or reason for Home Care: Radiculopathy, lumbar region ASSESSMENT: Focus of Visit shower transfer, shower level bathing Patient identified goals "to be indep " Plan of care, goals, and visit frequency reviewed and agreed upon with patient and/or caregiver. See intervention summary for intervention/education details. Current Discharge Plan: remain in community with/without caregiver support. Anticipate discharge by 11/18/23 RECOMMENDATION: Next visit to focus on review of ue hep safety documented in this encounter [facility] 11-06-2023 Patient's home Note SITUATION: OT routine with bath only patient present during today's visit. patient reports the following since the last homecare visit: medications/allergies--no changes, no fall. patient reports he has been working on both PT and OT hep daily. He reports he has a MD appt tomorrow due to high potassium. BACKGROUND: Diagnoses or reason for Home Care: Radiculopathy, lumbar region ASSESSMENT: Focus of Visit shower transfer, shower level bathing Patient identified goals "to be indep " Plan of care, goals, and visit frequency reviewed and agreed upon with patient and/or caregiver. See intervention summary for intervention/education details. Current Discharge Plan: remain in community with/without caregiver support. Anticipate discharge by 11/18/23 RECOMMENDATION: Next visit to focus on review of ue hep safety [facility] Work Phone: 11-03-2023 Miscellaneous Notes sent the following fax to Dr. Scott: Patient: José Manuel Ashton : 1960 Physician: Dr. Bunny Scott Please clarify if this above patient is to take the "new" Sliding Scale Insulin in addition to the already scheduled Insulin lispro 8u prior to each meal and Insulin glargine 24u at HS? Thank you! Please return to Attn: Simeon Hinds RN documented in this encounter [facility] 11-03-2023 Patient's home Note SN sent the following fax to Dr. Scott: Patient: José Manuel Ashton : 1960 Physician: Dr. Bunny Scott Please clarify if this above patient is to take the "new" Sliding Scale Insulin in addition to the already scheduled Insulin lispro 8u prior to each meal and Insulin glargine 24u at HS? Thank you! Please return to Attn: Simeon Hinds RN [facility] Work Phone: 11-03-2023 Miscellaneous Notes SITUATION: Halfway routine visit completed today. only patient also present during today's visit. patient reports the following: Allergies--reviewed Medications--reviewed current medications Falls--None DME-Reviewed and added to chart BACKGROUND: anxiety Reason for Home Care: Radiculopathy, lumbar region ASSESSMENT: SN greeted at door by patient utilizing cane and demonstrates stable gait. Patient appears in no acute distress. Patient/CG concerns verbalized today: none Vitals (see flow sheet for details): stable SN findings today: Patient went to Dr Scott this week. He said he had labwork done & states she is putting him on some new meds. States his sister is picking them up from pharmacy. States one is for cholesterol, one for anxiety. He also showed SN a new sliding scale he has. SN asked him if the sliding scale is in addition to the 8 units Humalog he takes with each meal & he said he thought he was not to take the 8 units w/meals any longer & just to take the sliding scale. So this am , his NMG=247 & he only took 2 units Humalog, NOT 10 units total. SN called Dr Scott's office, yet they are closed, 3:30pm. SN reported this to home health care case managerGirma herman RN & She will fax this to Dr Scott to clarify dose of humalog. For now, patient instructed to cont to take his 8 units humalog w/meals until clarified, pt/cg verbalized understanding. SN had spoke to pt's sister over the phone & she verbalized understanding. She said she was not sure what the doctor wanted him to do, she said she thought it was just the sliding scale. Patient reports as he was exercising today, his blood sugar went up to 257, yet now during this visit, back down to 190. SN reviewed diabetic management, impotance of exercise, balanced CHO diet, portion sizes, how to treat hypoglycemia, he verbalized understanding. 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 Patient demonstrated a need for further skilled SN services for chronic disease management & education and medication education. Current Discharge plan: family support RECOMMENDATION: Next visit to focus on (be specific): add any new meds to med list, see if humalog clarified? documented in this encounter [facility] 11-03-2023 Patient's home Note SITUATION: Halfway routine visit completed today. only patient also present during today's visit. patient reports the following: Allergies--reviewed Medications--reviewed current medications Falls--None DME-Reviewed and added to chart BACKGROUND: anxiety Reason for Home Care: Radiculopathy, lumbar region ASSESSMENT: SN greeted at door by patient utilizing cane and demonstrates stable gait. Patient appears in no acute distress. Patient/CG concerns verbalized today: none Vitals (see flow sheet for details): stable SN findings today: Patient went to Dr Scott this week. He said he had labwork done & states she is putting him on some new meds. States his sister is picking them up from pharmacy. States one is for cholesterol, one for anxiety. He also showed SN a new sliding scale he has. SN asked him if the sliding scale is in addition to the 8 units Humalog he takes with each meal & he said he thought he was not to take the 8 units w/meals any longer & just to take the sliding scale. So this am , his SMB=532 & he only took 2 units Humalog, NOT 10 units total. SN called Dr Scott's office, yet they are closed, 3:30pm. SN reported this to home health care case managerGirma herman RN & She will fax this to Dr Scott to clarify dose of humalog. For now, patient instructed to cont to take his 8 units humalog w/meals until clarified, pt/cg verbalized understanding. SN had spoke to pt's sister over the phone & she verbalized understanding. She said she was not sure what the doctor wanted him to do, she said she thought it was just the sliding scale. Patient reports as he was exercising today, his blood sugar went up to 257, yet now during this visit, back down to 190. SN reviewed diabetic management, impotance of exercise, balanced CHO diet, portion sizes, how to treat hypoglycemia, he verbalized understanding. His sister is also going to seed cone picker some glucose tablets at the pharmacy Incision to back free from s/s infection, dry, LYLE, almost healed See intervention summary for education details. Patient demonstrated a need for further skilled SN services for chronic disease management & education and medication education. Current Discharge plan: family support RECOMMENDATION: Next visit to focus on (be specific): add any new meds to med list, see if humalog clarified? [facility] Work Phone: 11-02-2023 Miscellaneous Notes SITUATION: only patient present during today's visit. patient reports the following since the last homecare visit: medications/allergies--no changes, no fall. patient reports he states he was told by MD no longer needs to wear back brace. Agreeable to PT. BACKGROUND: Diagnoses (reason for Home Care): Primary Dx: Encounter for other orthopedic aftercare [Z47.89] Weight Bearing/Precaution Changes: no changes, spinal ASSESSMENT: Focus of visit Formal HEP introduced to improve LE strength in standing. Gait training with SPC. transfer training from varoous chairs. Review of spinal precautions. Patient performed well on HEP items, great pacing and awareness of trunk position at all times. No complaints of SOB/chest pain; patient does not appear to be in acute distress. Patient reported comfort with the visit. spoke with JUSTIN irving; Zohaib is still awaiting return call from MD on whether patient is still required to brace. Plan of care, goals, and visit frequency reviewed and agreed upon with patient and/or caregiver. Current Discharge Plan: independent with home exercise program Anticipate discharge by tbd RECOMMENDATION: Next visit to focus on gait training See intervention summary for intervention/education details. documented in this encounter [facility] 11-02-2023 Patient's home Note SITUATION: only patient present during today's visit. patient reports the following since the last homecare visit: medications/allergies--no changes, no fall. patient reports he states he was told by MD no longer needs to wear back brace. Agreeable to PT. BACKGROUND: Diagnoses (reason for Home Care): Primary Dx: Encounter for other orthopedic aftercare [Z47.89] Weight Bearing/Precaution Changes: no changes, spinal ASSESSMENT: Focus of visit Formal HEP introduced to improve LE strength in standing. Gait training with SPC. transfer training from varoous chairs. Review of spinal precautions. Patient performed well on HEP items, great pacing and awareness of trunk position at all times. No complaints of SOB/chest pain; patient does not appear to be in acute distress. Patient reported comfort with the visit. spoke with JUSTIN irving; Zohaib is still awaiting return call from MD on whether patient is still required to brace. Plan of care, goals, and visit frequency reviewed and agreed upon with patient and/or caregiver. Current Discharge Plan: independent with home exercise program Anticipate discharge by tbd RECOMMENDATION: Next visit to focus on gait training See intervention summary for intervention/education details. [facility] Work Phone: 10-31-2023 Miscellaneous Notes SITUATION: Halfway routine visit completed today. only patient also present during today's visit. patient reports the following: Allergies--reviewed Medications--reviewed current medications Falls--None DME-Reviewed and added to chart BACKGROUND: HTN, DM2, ANXIETY Reason for Home Care: Radiculopathy, lumbar region ASSESSMENT: SN greeted at door by patient utilizing cane and demonstrates stable gait. Patient appears in no acute distress. Patient/CG concerns verbalized today: None, except back pain Vitals (see flow sheet for details): stable SN findings today: Patient reports he cont to fatigue/tire easily. States back pain continues, medications do help & states he also uses ice. 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 Small scab left to upper portion. States he prefers to use cane when ambulating. States at times, feels like his left leg is going to "give out." States he stands up slowly & pauses prior to ambulating He denies s/s HTN or s/s high or low blood sugars He verbalizes he has been doing his PT exercises 2x/day He states he should be going to PCP tomorrow. States his sister had to cancel vs yesterday due to her having a migraine SN cont to reinforce s/s sepsis, s/s HTN, balanced CHO diet, diabetic mgmt, patient verbalized understanding His sister cont to fill weekly pill box for patient See intervention summary for education details. Patient demonstrated a need for further skilled SN services for chronic disease management & education and safety. Current Discharge plan: family support RECOMMENDATION: Next visit to focus on (be specific): assess pain, see if any new med changes from his PCP appt 10/31 documented in this encounter [facility] 10-31-2023 Patient's home Note SITUATION: Halfway routine visit completed today. only patient also present during today's visit. patient reports the following: Allergies--reviewed Medications--reviewed current medications Falls--None DME-Reviewed and added to chart BACKGROUND: HTN, DM2, ANXIETY Reason for Home Care: Radiculopathy, lumbar region ASSESSMENT: SN greeted at door by patient utilizing cane and demonstrates stable gait. Patient appears in no acute distress. Patient/CG concerns verbalized today: None, except back pain Vitals (see flow sheet for details): stable SN findings today: Patient reports he cont to fatigue/tire easily. States back pain continues, medications do help & states he also uses ice. 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 Small scab left to upper portion. States he prefers to use cane when ambulating. States at times, feels like his left leg is going to "give out." States he stands up slowly & pauses prior to ambulating He denies s/s HTN or s/s high or low blood sugars He verbalizes he has been doing his PT exercises 2x/day He states he should be going to PCP tomorrow. States his sister had to cancel vs yesterday due to her having a migraine SN cont to reinforce s/s sepsis, s/s HTN, balanced CHO diet, diabetic mgmt, patient verbalized understanding His sister cont to fill weekly pill box for patient See intervention summary for education details. Patient demonstrated a need for further skilled SN services for chronic disease management & education and safety. Current Discharge plan: family support RECOMMENDATION: Next visit to focus on (be specific): assess pain, see if any new med changes from his PCP appt 10/31 [facility] Work Phone: 10-30-2023 Miscellaneous Notes SITUATION: OT routine visit only patient present during today's visit. patient reports the following since the last homecare visit: medications/allergies--no changes, no fall. patient reports it has helped leaving the tub benches being placed in the kitchen and by sink in bathroom, Prior he was dragging a bench along with him. He reports dealing with pain is the most limiting thing for him at this time. . BACKGROUND: Diagnoses or reason for Home Care: Radiculopathy, lumbar region ASSESSMENT: Focus of Visit shower transfers and ue hep Patient identified goals "to get stronger" Plan of care, goals, and visit frequency reviewed and agreed upon with patient and/or caregiver. See intervention summary for intervention/education details. Current Discharge Plan: remain in community with/without caregiver support. Anticipate discharge by 11/18/23 RECOMMENDATION: Next visit to focus on shower level bathing and transfers documented in this encounter [facility] 10-30-2023 Patient's home Note SITUATION: OT routine visit only patient present during today's visit. patient reports the following since the last homecare visit: medications/allergies--no changes, no fall. patient reports it has helped leaving the tub benches being placed in the kitchen and by sink in bathroom, Prior he was dragging a bench along with him. He reports dealing with pain is the most limiting thing for him at this time. . BACKGROUND: Diagnoses or reason for Home Care: Radiculopathy, lumbar region ASSESSMENT: Focus of Visit shower transfers and ue hep Patient identified goals "to get stronger" Plan of care, goals, and visit frequency reviewed and agreed upon with patient and/or caregiver. See intervention summary for intervention/education details. Current Discharge Plan: remain in community with/without caregiver support. Anticipate discharge by 11/18/23 RECOMMENDATION: Next visit to focus on shower level bathing and transfers [facility] Work Phone: 10-28-2023 Miscellaneous Notes PT to contact Dr. Gutierrez on 10/30/23 for the following: Clarify status of back brace. SITUATION: only patient present during today's visit. patient reports the following since the last homecare visit: medications/allergies--no changes, no fall. patient reports agreeable to home PT. BACKGROUND: Diagnoses (reason for Home Care): Radiculopathy, lumbar region Past Medical History: Spinal Stenosis of Lumbar Region With Neurogenic Claudication Htn (Hypertension) Generalized Anxiety Disorder Peripheral Sensory-Motor Axonal Polyneuropathy Alcohol Dependence (Hcc) Nonexudative Age-Related Macular Degeneration, Bilateral, Intermediate Dry Stage Bph Associated With Nocturia Type 2 Diabetes Mellitus With Stage 3b Chronic Kidney Disease, With Long-Term Current Use of Insulin (Hcc) Obesity, Class II, Bmi 35-39.9 Weight Bearing or Surgical Precautions: Fall Risk No BLT > 10#, LSO brace OOB, PPPD (vertigo), extreme fall risk, prefers cane for mobilization ASSESSMENT: Patient evaluated by [facility] physical therapy. Reviewed and explained homecare services. Plan of care, goals, and visit frequency developed, reviewed, and agreed upon with patient and/or caregiver. Patient would benefit from home PT for improved strngth and mobility. Plan to d/c to outpatient PT after completion of home care. PT 1w1, 2w3. Patient reports that MD discontinued brace. Will need clarified. Patient Goal: Wants mobility to improve. Patient will benefit from continued physical therapy to address the following deficits: strength.gait, bed mobility, transfers and understanding and performance of HEP. Current Discharge Plan:outpatient rehab. Anticipate discharge by 11/18/23 RECOMMENDATION: Next visit to focus on Working toward achieving goals of independence with gait, bed mobility, transfers and understanding and performance of HEP. See intervention summary for intervention/education details. documented in this encounter [facility] 10-28-2023 Patient's home Note PT to contact Dr. Gutierrez on 10/30/23 for the following: Clarify status of back brace. [facility] Work Phone: 10-28-2023 Patient's home Note SITUATION: only patient present during today's visit. patient reports the following since the last homecare visit: medications/allergies--no changes, no fall. patient reports agreeable to home PT. BACKGROUND: Diagnoses (reason for Home Care): Radiculopathy, lumbar region Past Medical History: Spinal Stenosis of Lumbar Region With Neurogenic Claudication Htn (Hypertension) Generalized Anxiety Disorder Peripheral Sensory-Motor Axonal Polyneuropathy Alcohol Dependence (Hcc) Nonexudative Age-Related Macular Degeneration, Bilateral, Intermediate Dry Stage Bph Associated With Nocturia Type 2 Diabetes Mellitus With Stage 3b Chronic Kidney Disease, With Long-Term Current Use of Insulin (Hcc) Obesity, Class II, Bmi 35-39.9 Weight Bearing or Surgical Precautions: Fall Risk No BLT > 10#, LSO brace OOB, PPPD (vertigo), extreme fall risk, prefers cane for mobilization ASSESSMENT: Patient evaluated by [facility] physical therapy. Reviewed and explained homecare services. Plan of care, goals, and visit frequency developed, reviewed, and agreed upon with patient and/or caregiver. Patient would benefit from home PT for improved strngth and mobility. Plan to d/c to outpatient PT after completion of home care. PT 1w1, 2w3. Patient reports that MD discontinued brace. Will need clarified. Patient Goal: Wants mobility to improve. Patient will benefit from continued physical therapy to address the following deficits: strength.gait, bed mobility, transfers and understanding and performance of HEP. Current Discharge Plan:outpatient rehab. Anticipate discharge by 11/18/23 RECOMMENDATION: Next visit to focus on Working toward achieving goals of independence with gait, bed mobility, transfers and understanding and performance of HEP. See intervention summary for intervention/education details. [facility] 10-27-2023 Telephone encounter Note Patient accepted and confirmed PT eval for 10/28/23. [facility] 10-27-2023 Miscellaneous Notes Patient accepted and confirmed PT eval for 10/28/23. documented in this encounter [facility] 10-27-2023 Telephone encounter Note There has been a delay in service for Home Care PT Evaluation for this patient due to schedule conflict. Patient was notified on 10/27/23. Thank you for this referral, please contact us with any questions. Maxine Alonzo [facility] 10-27-2023 Miscellaneous Notes There has been a delay in service for Home Care PT Evaluation for this patient due to schedule conflict. Patient was notified on 10/27/23. Thank you for this referral, please contact us with any questions. Maxine Lopez [employer] documented in this encounter [facility] 10-27-2023 Miscellaneous Notes SITUATION: OT evaluation only patient present during today's visit. patient reports the following since the last homecare visit: medications/allergies--no changes, no fall. 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 Pts sister assts with pts needs and has neighbors check in on him as well. Pt ambulates with cane but is unsteady. He is complete personal care but asst with le dressing and bathing due to surgical precautions. Patient evaluated by [facility] occupational therapy. Reviewed and explained homecare services. Plan of care, goals and visit frequency developed, reviewed, and agreed upon with patient and/or caregiver. Patient identified goals: "to be able to care for myselft". Patient will benefit from continued occupational therapy to address the following deficits functional activity including I/ADLs, UE strength/ROM and functional transfers as evidenced by score on Modified Kelin Index 60/100. indicating severe assist required for ADL tasks and mobility. Prior to decline in function, patient was requiring asst by family for adl and iald ambulated with cane. Without continued OT services, patient risks prolonged dependence upon caregivers for I/ADLs and potential injury leading to a longer and more difficult recovery. Current Discharge Plan:remain in community with/without caregiver support. Anticipate discharge by 11/18/23 RECOMMENDATION: Plan for next visit to focus on shower transfers ue hep. See intervention summary for intervention/education details. documented in this encounter [facility] 10-27-2023 Patient's home Note SITUATION: OT evaluation only patient present during today's visit. patient reports the following since the last homecare visit: medications/allergies--no changes, no fall. 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 Pts sister assts with pts needs and has neighbors check in on him as well. Pt ambulates with cane but is unsteady. He is complete personal care but asst with le dressing and bathing due to surgical precautions. Patient evaluated by [facility] occupational therapy. Reviewed and explained homecare services. Plan of care, goals and visit frequency developed, reviewed, and agreed upon with patient and/or caregiver. Patient identified goals: "to be able to care for myselft". Patient will benefit from continued occupational therapy to address the following deficits functional activity including I/ADLs, UE strength/ROM and functional transfers as evidenced by score on Modified Kelin Index 60/100. indicating severe assist required for ADL tasks and mobility. Prior to decline in function, patient was requiring asst by family for adl and iald ambulated with cane. Without continued OT services, patient risks prolonged dependence upon caregivers for I/ADLs and potential injury leading to a longer and more difficult recovery. Current Discharge Plan:remain in community with/without caregiver support. Anticipate discharge by 11/18/23 RECOMMENDATION: Plan for next visit to focus on shower transfers ue hep. See intervention summary for intervention/education details. [facility] Work Phone: 10-26-2023 Miscellaneous Notes 10/26/23 FORGER HELPER made a PASSPORT referral for the pt. to [facility]. documented in this encounter [facility] 10-26-2023 Patient's home Note 10/26/23 FORGER HELPER made a PASSPORT referral for the pt. to [facility]. [facility] Work Phone: 10-26-2023 Miscellaneous Notes SITUATION: Medical Social Work evaluation completed today. The patient and his sister Janell present during today's visit. The patient and caregiver reports the following changes since the last homecare visit: Falls--None BACKGROUND: Diagnoses (reason for Home Care): Alcohol Dependence (Hcc), Type 2 Diabetes Mellitus With Stage 3b Chronic Kidney Disease, With Long-Term Current Use of Insulin (Hcc), Reason for SURVEYOR INSTRUMENT ASSISTANT referral: eval and treat for Community Resources-"global or Mom's meals?, eligible for PASSPORT. Pt could use both for personal care and homemaking assist. Family dynamics and household members: The pt. lives alone in senior apartment that he recently moved into the end of August. The pt.'s sister Laci Waldrop who lives in [place] is the pt.'s primary caregiver. ASSESSMENT: SURVEYOR INSTRUMENT ASSISTANT greeted at door by Eda Bright RN who was finishing her visit. The patien's sister fisher been assisting the pt. almost daily and feels the pt. needs more help in the home. Se is concerned about the pt. needing assist with bathing. Comments: FORGER HELPER arrived the pt.'s apt. and the pt.'s sister had went to meet FORGER HELPER at the main door. The pt.'s sister Janell came back to the pt.'s apt. The pt.'s apt. was scarcely furnished and the pt. does not have a TV. The pt.'s sister stated she is going to buy the pt. a smart TV. The pt.'s sister discussed how the pt. living in a basement apartment the dental office receptionist on his phone and TV are not good and she was told to get the pt. a smart TV. The pt. has a radio that he had on. FORGER HELPER educated the pt. and his sister Janell on [facility] and PASSPORT for an Aide/Homemaker, Home Delivered Meals and ER Medical Alert. The pt.'s sister stated she was going to check into the pt.'s insurance [facility] Medicare regarding if they would provide the pt. with an ER Medical Alert. FORGER HELPER informed the pt. and his sister that they can call member or customer service on the back of the pt.'s insurnace card regarding this. FORGER HELPER educated on [facility] for Home Delivered Meals and [place] Home Delivered Meals through [facility]. The pt.'s sister discussed the pt. needing to be on a Diabetic diet. FORGER HELPER discussed other Home Delivered Meal Providers sucha as Moms Meals and Global Meals for Diabetic Meals and they are provided under PASSPORT. The pt. and his sister want FORGER HELPER to make a PASSPORT referral for the pt. to [facility]. FORGER HELPER did inform the pt. and his sister it takes time to get on PASSPORT. The pt.'s sister has been taking the pt. to all his medical appointments. FORGER HELPER educated on [facility] Public Transit and that the pt.'s [facility] Medicare may provide transportation to medical appointments and to talk with member or customer service on the back of the pt.'s insurance card. The pt.'s sister stated she grocery shops for the pt. FORGER HELPER educated on [facility] having Volunteers that will grocery shop at [facility] for you. ;SW discussed with the pt. and his sister regarding Advanced Directives for the Living Will and Medical POA. The pt.stated she puts his sister giancarlow that they can talk to her. FORGER HELPER educated more the Medical POA and Living Will. The pt.'s sister stated she thinks the insurance lady gave them the forms that they can complete if wanted. The pt.'s sister is planning to take the pt. to a Technology Sales Specialist to get the pt.'s toenails cut. FORGER HELPER educated the pt. and his sister on the [employer] for a Technology Sales Specialist to come to the home if too hard to get the pt. out. RECOMMENDATIONS: Recommended the following services: [facility]/PASSPORT, [facility] office For Older Adults for Home Delivered Meals, Volunteer to grocery shop at [facility], [facility] Medicare may provide transportation to medical appointments and provide the pt. with an ER Medical Alert, other Home Delivered Meal Providers. Referrals made to: FORGER HELPER made a PASSPORT referral for the pt. to [facility]. Written information provided: On [facility]/PASSPORT. Response to recommendations: patient and his siter Janell in agreement to referral made to [facility] for PASSPORT. Medical social work provided support services in order to ensure a safe and appropriate discharge plan. If care team members have any additional concerns identified in the home, please notify SURVEYOR INSTRUMENT ASSISTANT for follow up. SURVEYOR INSTRUMENT ASSISTANT provided name and number to patient and his sister Janell for follow up if/when needed. Team/Physician updated: 1:49 PM - 1:52 PM FORGER HELPER called Dr. Bunny Scott and spoke to Crsytal regarding FORGER HELPER made a home visit to the pt. today and his sister Janell was present. FORGER HELPER stated that the pt.'s sister Janell assists the pt. almost daily. FORGER HELPER stated that she made a PASSPORT referral for the pt. to [facility] for the pt. to get an Aide/Homemaker, Home Delivered Meals, ER Medical Alert. FORGER HELPER stated that she spoke to the pt. and his sister regarding transportation and that the pt.'s [facility] Medicare may provide transportation to medical appointments and provide the pt. with an ER Medical Alert. Mckayla stated she will inform the Dr. of this. documented in this encounter [facility] 10-26-2023 Patient's home Note SITUATION: Medical Social Work evaluation completed today. The patient and his sister Janell present during today's visit. The patient and caregiver reports the following changes since the last homecare visit: Falls--None BACKGROUND: Diagnoses (reason for Home Care): Alcohol Dependence (Hcc), Type 2 Diabetes Mellitus With Stage 3b Chronic Kidney Disease, With Long-Term Current Use of Insulin (Hcc), Reason for SURVEYOR INSTRUMENT ASSISTANT referral: eval and treat for Community Resources-"global or Mom's meals?, eligible for PASSPORT. Pt could use both for personal care and homemaking assist. Family dynamics and household members: The pt. lives alone in senior apartment that he recently moved into the end of August. The pt.'s sister Laci Waldrop who lives in [place] is the pt.'s primary caregiver. ASSESSMENT: SURVEYOR INSTRUMENT ASSISTANT greeted at door by Eda Bright RN who was finishing her visit. The patien's sister natalia been assisting the pt. almost daily and feels the pt. needs more help in the home. Se is concerned about the pt. needing assist with bathing. Comments: FORGER HELPER arrived the pt.'s apt. and the pt.'s sister had went to meet FORGER HELPER at the main door. The pt.'s sister Janell came back to the pt.'s apt. The pt.'s apt. was scarcely furnished and the pt. does not have a TV. The pt.'s sister stated she is going to buy the pt. a smart TV. The pt.'s sister discussed how the pt. living in a basement apartment the dental office receptionist on his phone and TV are not good and she was told to get the pt. a smart TV. The pt. has a radio that he had on. FORGER HELPER educated the pt. and his sister Janell on [facility] and PASSPORT for an Aide/Homemaker, Home Delivered Meals and ER Medical Alert. The pt.'s sister stated she was going to check into the pt.'s insurance [facility] Medicare regarding if they would provide the pt. with an ER Medical Alert. FORGER HELPER informed the pt. and his sister that they can call member or customer service on the back of the pt.'s insurnace card regarding this. FORGER HELPER educated on [facility] for Home Delivered Meals and [place] Home Delivered Meals through [facility]. The pt.'s sister discussed the pt. needing to be on a Diabetic diet. FORGER HELPER discussed other Home Delivered Meal Providers sucha as Moms Meals and Global Meals for Diabetic Meals and they are provided under PASSPORT. The pt. and his sister want FORGER HELPER to make a PASSPORT referral for the pt. to [facility]. FORGER HELPER did inform the pt. and his sister it takes time to get on PASSPORT. The pt.'s sister has been taking the pt. to all his medical appointments. FORGER HELPER educated on [facility] Public Transit and that the pt.'s [facility] Medicare may provide transportation to medical appointments and to talk with member or customer service on the back of the pt.'s insurance card. The pt.'s sister stated she grocery shops for the pt. FORGER HELPER educated on [facility] having Volunteers that will grocery shop at [place] for you. ;SW discussed with the pt. and his sister regarding Advanced Directives for the Living Will and Medical POA. The pt.stated she puts his sister donw that they can talk to her. FORGER HELPER educated more the Medical POA and Living Will. The pt.'s sister stated she thinks the insurance lady gave them the forms that they can complete if wanted. The pt.'s sister is planning to take the pt. to a Technology Sales Specialist to get the pt.'s toenails cut. FORGER HELPER educated the pt. and his sister on the [employer] for a Technology Sales Specialist to come to the home if too hard to get the pt. out. RECOMMENDATIONS: Recommended the following services: [facility] on [employer]/In[employer], [facility] office For Older Adults for Home Delivered Meals, Volunteer to grocery shop at [facility] Medicare may provide transportation to medical appointments and provide the pt. with an ER Medical Alert, other Home Delivered Meal Providers. Referrals made to: FORGER HELPER made a PASSPORT referral for the pt. to [facility]. Written information provided: On [facility]/PASSPORT. Response to recommendations: patient and his siter Janell in agreement to referral made to [facility] on [employer] for PASSPORT. Medical social work provided support services in order to ensure a safe and appropriate discharge plan. If care team members have any additional concerns identified in the home, please notify SURVEYOR INSTRUMENT ASSISTANT for follow up. SURVEYOR INSTRUMENT ASSISTANT provided name and number to patient and his sister Janell for follow up if/when needed. Team/Physician updated: 1:49 PM - 1:52 PM FORGER HELPER [facility] Dr[facility] HELPER made a home visit to the pt. today and his sister Janell was present. FORGER HELPER stated that the pt.'s sister Janell assists the pt. almost daily. FORGER HELPER stated that she made a PASSPORT referral for the pt. to [facility] [employer] for the pt. to get an Aide/Homemaker, Home Delivered Meals, ER Medical Alert. FORGER HELPER stated that she spoke to the pt. and his sister regarding transportation and that the pt.'s [facility] Medicare may provide transportation to medical appointments and provide the pt. with an ER Medical Alert. Crystal stated she will inform the DrShireen of this. [facility] Work Phone: 10-26-2023 Miscellaneous Notes SITUATION: Halfway routine visit completed today. pt's sister also present during today's visit. patient and caregiver reports the following: Allergies--reviewed Medications--full medication reconciliation completed Falls--None DME-Reviewed and added to chart BACKGROUND: depression, HTN, HLD Reason for Home Care: History of lumbar laminectomy for spinal cord decompression ASSESSMENT: SN greeted at door by caregiver. Upon entrance patient found in chair Patient appears in no acute distress. Patient/CG concerns verbalized today: None Vitals (see flow sheet for details): stable SN findings today: SN attempted x 2 to obtain BMP, no blood return. SN offered another SN visit tomorrow, yet his sister states she would rather wait for labwork until they see PCP Monday. SN called Dr Scott's office, left message on nurse line re: that SN unable to obtain BMP today & cg wanting to have that drawn in the office Monday. States she will not be available to be at pt's home tomorrow. SN left SN cell # if any questions Patient saw surgeon yesterday, incision is healing, no further drainage. No redness. CG states they told them to cleanse with alcohol & leave PRIMARY CLASS TEACHER or can apply ABD for protection/padding Patient cont to ambulate slowly with walker, states pain slowly improving Patient denies s/s HTN See intervention summary for education details. Patient demonstrated a need for further skilled SN services for chronic disease management & education, wound/skin care and safety. Current Discharge plan: family support RECOMMENDATION: Next visit to focus on (be specific): assess back incision, blood sugars, pain documented in this encounter [facility] 10-26-2023 Patient's home Note SITUATION: Halfway routine visit completed today. pt's sister also present during today's visit. patient and caregiver reports the following: Allergies--reviewed Medications--full medication reconciliation completed Falls--None DME-Reviewed and added to chart BACKGROUND: depression, HTN, HLD Reason for Home Care: History of lumbar laminectomy for spinal cord decompression ASSESSMENT: SN greeted at door by caregiver. Upon entrance patient found in chair Patient appears in no acute distress. Patient/CG concerns verbalized today: None Vitals (see flow sheet for details): stable SN findings today: SN attempted x 2 to obtain BMP, no blood return. SN offered another SN visit tomorrow, yet his sister states she would rather wait for labwork until they see PCP Monday. SN called Dr Scott's office, left message on nurse line re: that SN unable to obtain BMP today & cg wanting to have that drawn in the office Monday. States she will not be available to be at pt's home tomorrow. SN left SN cell # if any questions Patient saw surgeon yesterday, incision is healing, no further drainage. No redness. CG states they told them to cleanse with alcohol & leave PRIMARY CLASS TEACHER or can apply ABD for protection/padding Patient cont to ambulate slowly with walker, states pain slowly improving Patient denies s/s HTN See intervention summary for education details. Patient demonstrated a need for further skilled SN services for chronic disease management & education, wound/skin care and safety. Current Discharge plan: family support RECOMMENDATION: Next visit to focus on (be specific): assess back incision, blood sugars, pain [facility] Work Phone: 10-24-2023 Miscellaneous Notes 10/24/23 9:30 AM - 9:35 AM FORGER HELPER received a phone call from the pt.'s sister Janell Ashton returning FORGER HELPER'S phone call. FORGER HELPER stated she was calling regarding the pt. and community resources. FORGER HELPER educated the pt.'s sister on [facility] and [facility]. FORGER HELPER discussed an Aide/Homemaker, Home Delivered Meals and ER Medical Alert under PASSPORT. FORGER HELPER stated she could make a home visit and the pt.'s sister supportive of this. She stated that she got the pt. a shower chair and handheld shower.She stated that she is not sure about the pt. bathing. The pt.'s sister wants to be present for FORGER HELPER visit and FORGER HELPER visit scheduled for 10/26/23 at 10:00 AM. documented in this encounter [facility] 10-24-2023 Patient's home Note 10/24/23 9:30 AM - 9:35 AM FORGER HELPER received a phone call from the pt.'s sister Janell Ashton returning FORGER HELPER'S phone call. FORGER HELPER stated she was calling regarding the pt. and community resources. FORGER HELPER educated the pt.'s sister on [facility] and PASSPORT. FORGER HELPER discussed an Aide/Homemaker, Home Delivered Meals and ER Medical Alert under PASSPORT. FORGER HELPER stated she could make a home visit and the pt.'s sister supportive of this. She stated that she got the pt. a shower chair and handheld shower.She stated that she is not sure about the pt. bathing. The pt.'s sister wants to be present for FORGER HELPER visit and FORGER HELPER visit scheduled for 10/26/23 at 10:00 AM. [facility] Work Phone: 10-23-2023 Miscellaneous Notes 10/23/23 12:48 PM - 12;50 PM FORGER HELPER called the pt.'s sister Janell Ashton and left her a message that FORGER HELPER was calling regarding the pt. and community resources and more help with the pt.'s care. FORGER HELPER left her name and phone number to call FORGER HELPER back. documented in this encounter [facility] 10-23-2023 Patient's home Note 10/23/23 12:48 PM - 12;50 PM FORGER HELPER called the pt.'s sister Janell Ashton and left her a message that FORGER HELPER was calling regarding the pt. and community resources and more help with the pt.'s care. FORGER HELPER left her name and phone number to call FORGER HELPER back. [facility] Work Phone: 10-22-2023 Miscellaneous Notes SITUATION: Halfway SOC visit completed today. only patient present during today's visit. patient reports the following: Allergies--reviewed Medications--full medication reconciliation completed Falls--Pt fell prior to SOC DME-Reviewed and added to chart BACKGROUND: Discharged/Referral from acute rehab hospital on 10/20/23 following treatment for post laminectomy. Pertinent referral information or other diagnoses that may affect plan of care: DM ASSESSMENT: SN greeted at door by patient utilizing cane and demonstrates stable gait. Patient appears in no acute distress. Patient lives at home alone. Home environment: clean and uncluttered. SOC booklet reviewed & completed with patient and consent obtained for Home Care services. Patient/CG concerns verbalized today: pt verbalizes that he is not doing well getting around in the home. He thinks that he was sent home too early. He reports that he fell trying to get out of his chair the night that he came home. Vitals (see flow sheet for details): stable SN findings today: Pt ambulating in apt using a cane, his gait can be somewhat unsteady at times and when questioned about a walker, pt states that makes him more unsteady. He reports that he is used to the cane and has been able to keep his balance using the cane. Pt had laminectomy on 09/25 and then went to [facility] for rehab. He returned home on 10/19. pt reports that he has not been able to use the recliners because they both rock and he cannot get out of them; this is why he fell the night that he came home. He reports that it was on purpose so that he could get to a chair that he was eventually able to use to help him up. Pt is sitting at the edge of the bed or laying in bed. Pt sat on edge of bed for review of [facility] booklet and signed consent. SN then assessed the rocker/recliner and was able to wedge the chair in the back to prevent it from rocking; this does allow the recliner function to still work. Pt now able to get in and out of chair. Pt has newly moved into this apt with the help of his sister and there are still details being worked out. Sister has obtained a hand held shower (installed), pt has 2 shower benches, a raised toilet seat. There is one grab bar in shower/tub but this is on the L side and pt does not have a R side grab bar for him to safely get in and out. Therapy to assess and recommend for possible alterative grab bars to attach to wall or to tub. Pt reports that he has been dealing with the pain and injruy not only to his back but also to his L groin for approx 6 years. the groin injury occurred when he was getting out of a truck and his foot caught on the running board and his leg twisted and felt a pop in the L groin. He states that he has suffered with pain with movement in the groin ever since. Pt states that he is not a very good historian, he states that his memory is not good and that he cannot process information quickly and states that his sister helps him with all of this. Pt is oriented and able to follow commands, no acute mental deficits but when asked about d/c instructions, f/u appts, etc; he is not sure and wants his sister to answer these questions. Sister will be here after she gets home from hinduism. Pt has a lower back incision that is covered with a ABD pad and has lidocaine patches to either side(placed on 10/19). All of this was removed by SN. Incision is well approximated and secured with steristrips. There is a small opening at most proximal area that has a scant amount of serous drainage and pt was placed on cephalexin before dc by [facility]. Immediate area is slightly red but does not appear to be acutely inflammed. Pt to see surgeon on 10/24 for follow up. SN did leave a few ABD pads and tape to use to pad area; pt states that this is more for comfort than for drainage. Sister arrived. Pt lives alone in an independent apt faciltiy. His sister is checking in with him at least daily now. She is setting up his meds in bowls each day. SN discussed use of a pillbox and cg is very agreeable. This SN did not have one today but sister states that she will purchase and start this. Pt is able to remember to take meds as long as they are preset for him. He is independent with insulins and has those set up at his bedside. SN also discussed a home delivered meal program such as Global Meals or Mom's meals and pt and sister are VERY interested. SURVEYOR INSTRUMENT ASSISTANT referral is in place to address. SN will also have SURVEYOR INSTRUMENT ASSISTANT address any other resources such as PASSPORT; pt could benefit from personal care assistance as well as homemaking and ways to make him more independent from his sister. Pt's surgery was at [facility] and he will follow up with them on 10/24. Pt has blood work ordered for that date and SN to request moving to 10/25 for this reason. Most of pt needs will be for therapy due to continued weakness of legs and pain, need for ADL training and maximizing independence. SN instructed pt that he may need to discuss a pain managment referral-he admits to marijuana use in the past as well as other "illegal susbstances" which he states that he has not used recently but may revert to if his pain is not adequately managed by his providers. SN highly encouraged a pain management referral and will notify PCP of this concern. Primary reason for SN is for wound monitoring, home safety and pt ability to safely manage in his new environment. His sister, Janell, is very involved with his care but does live in [place] and is not available 24/10 See intervention summary for education details and skills performed. Plan of care and visit frequency established with patient and plan of care agreed upon. Patient demonstrated a need for further skilled SN services for chronic disease management & education, medication education, wound/skin care and safety. RECOMMENDATION: Visit Frequency: 2 wk 3, 1 wk 1. Need for additional services: Patient agreeable to PT, OT and SURVEYOR INSTRUMENT ASSISTANT referrals. Patient declined N/A referrals. Additional concerns to be followed up on: NONE Next visit to focus on (be specific): incision check, CP assessment, continue diabetic teaching, follow up on SURVEYOR INSTRUMENT ASSISTANT referral for community resources. documented in this encounter [facility] 10-22-2023 Patient's home Note SITUATION: Halfway SOC visit completed today. only patient present during today's visit. patient reports the following: Allergies--reviewed Medications--full medication reconciliation completed Falls--Pt fell prior to SOC DME-Reviewed and added to chart BACKGROUND: Discharged/Referral from acute rehab hospital on 10/20/23 following treatment for post laminectomy. Pertinent referral information or other diagnoses that may affect plan of care: DM ASSESSMENT: SN greeted at door by patient utilizing cane and demonstrates stable gait. Patient appears in no acute distress. Patient lives at home alone. Home environment: clean and uncluttered. SOC booklet reviewed & completed with patient and consent obtained for Home Care services. Patient/CG concerns verbalized today: pt verbalizes that he is not doing well getting around in the home. He thinks that he was sent home too early. He reports that he fell trying to get out of his chair the night that he came home. Vitals (see flow sheet for details): stable SN findings today: Pt ambulating in apt using a cane, his gait can be somewhat unsteady at times and when questioned about a walker, pt states that makes him more unsteady. He reports that he is used to the cane and has been able to keep his balance using the cane. Pt had laminectomy on 09/25 and then went to [facility] for rehab. He returned home on 10/19. pt reports that he has not been able to use the recliners because they both rock and he cannot get out of them; this is why he fell the night that he came home. He reports that it was on purpose so that he could get to a chair that he was eventually able to use to help him up. Pt is sitting at the edge of the bed or laying in bed. Pt sat on edge of bed for review of [facility] booklet and signed consent. SN then assessed the rocker/recliner and was able to wedge the chair in the back to prevent it from rocking; this does allow the recliner function to still work. Pt now able to get in and out of chair. Pt has newly moved into this apt with the help of his sister and there are still details being worked out. Sister has obtained a hand held shower (installed), pt has 2 shower benches, a raised toilet seat. There is one grab bar in shower/tub but this is on the L side and pt does not have a R side grab bar for him to safely get in and out. Therapy to assess and recommend for possible alterative grab bars to attach to wall or to tub. Pt reports that he has been dealing with the pain and injruy not only to his back but also to his L groin for approx 6 years. the groin injury occurred when he was getting out of a truck and his foot caught on the running board and his leg twisted and felt a pop in the L groin. He states that he has suffered with pain with movement in the groin ever since. Pt states that he is not a very good historian, he states that his memory is not good and that he cannot process information quickly and states that his sister helps him with all of this. Pt is oriented and able to follow commands, no acute mental deficits but when asked about d/c instructions, f/u appts, etc; he is not sure and wants his sister to answer these questions. Sister will be here after she gets home from hinduism. Pt has a lower back incision that is covered with a ABD pad and has lidocaine patches to either side(placed on 10/19). All of this was removed by SN. Incision is well approximated and secured with steristrips. There is a small opening at most proximal area that has a scant amount of serous drainage and pt was placed on cephalexin before dc by [facility]. Immediate area is slightly red but does not appear to be acutely inflammed. Pt to see surgeon on 10/24 for follow up. SN did leave a few ABD pads and tape to use to pad area; pt states that this is more for comfort than for drainage. Sister arrived. Pt lives alone in an independent apt faciltiy. His sister is checking in with him at least daily now. She is setting up his meds in bowls each day. SN discussed use of a pillbox and cg is very agreeable. This SN did not have one today but sister states that she will purchase and start this. Pt is able to remember to take meds as long as they are preset for him. He is independent with insulins and has those set up at his bedside. SN also discussed a home delivered meal program such as [employer] or Mom[employer] meals and pt and sister are VERY interested. SURVEYOR INSTRUMENT ASSISTANT referral is in place to address. SN will also have SURVEYOR INSTRUMENT ASSISTANT address any other resources such as [employer]; pt could benefit from personal care assistance as well as homemaking and ways to make him more independent from his sister. Pt's surgery was at [facility] and he will follow up with them on 10/24. Pt has blood work ordered for that date and SN to request moving to 10/25 for this reason. Most of pt needs will be for therapy due to continued weakness of legs and pain, need for ADL training and maximizing independence. SN instructed pt that he may need to discuss a pain managment referral-he admits to marijuana use in the past as well as other "illegal susbstances" which he states that he has not used recently but may revert to if his pain is not adequately managed by his providers. SN highly encouraged a pain management referral and will notify PCP of this concern. Primary reason for SN is for wound monitoring, home safety and pt ability to safely manage in his new environment. His sister, Janell, is very involved with his care but does live in [place] and is not available 24/10 See intervention summary for education details and skills performed. Plan of care and visit frequency established with patient and plan of care agreed upon. Patient demonstrated a need for further skilled SN services for chronic disease management & education, medication education, wound/skin care and safety. RECOMMENDATION: Visit Frequency: 2 wk 3, 1 wk 1. Need for additional services: Patient agreeable to PT, OT and SURVEYOR INSTRUMENT ASSISTANT referrals. Patient declined N/A referrals. Additional concerns to be followed up on: NONE Next visit to focus on (be specific): incision check, CP assessment, continue diabetic teaching, follow up on SURVEYOR INSTRUMENT ASSISTANT referral for community resources. [facility] Work Phone: 10-21-2023 Miscellaneous Notes Patient accepted and confirmed home health start of care (SOC) for 10/22/23. Visit time established. documented in this encounter [facility] 10-21-2023 Telephone encounter Note Patient accepted and confirmed home health start of care (SOC) for 10/22/23. Visit time established. [facility] Work Phone: 10-20-2023 Telephone encounter Note Called patient to confirm and schedule start of care visit. No answer. Left voicemail [facility] 10-20-2023 Miscellaneous Notes Called patient to confirm and schedule start of care visit. No answer. Left voicemail documented in this encounter [facility] 10-18-2023 Note [facility] 10-18-2023 Note [facility] 10-17-2023 Note [facility] 10-15-2023 Note HNO ID: [id number] Author: JARETT MCMULLEN RN Service: Nursing Author Type: Registered Nurse Type: Nursing Progress Note Filed: 10/15/2023 12:28 Note Text: Service dog in to see patient at this time. [facility] 10-13-2023 Note [facility] 10-13-2023 Telephone encounter Note Date/Time: 10/13/2023 9:21 AM Spoke with Janell Ashton @ phone #: [phone] - Preferred # for contact: [phone] Have you received help from a home care company in the last 60 days? NO Are you agreeable to [facility] services? YES What address will we be seeing you at? [address] [place] [address] Do you have any upcoming appointments or things we need to schedule around? 10/20/23, 10/25/23 Do you have a teachable CG or can you manage your care independently? Independently FLU SHOT NOT SURE WHERE [facility] Work Phone: 10-13-2023 Miscellaneous Notes Date/Time: 10/13/2023 9:21 AM Spoke with Janell Ashton @ phone #: [phone] - Preferred # for contact: [phone] Have you received help from a home care company in the last 60 days? NO Are you agreeable to [facility] services? YES What address will we be seeing you at? [address] [facility] [address] Do you have any upcoming appointments or things we need to schedule around? 10/20/23, 10/25/23 Do you have a teachable CG or can you manage your care independently? Independently FLU SHOT NOT SURE WHERE Called pt and sister Janell, left messages to call office, wanted to confirm home care services. [facility] LPN documented in this encounter [facility] 10-12-2023 Telephone encounter Note Called and spoke with Shelia in providers office, she confirmed will follow for services. [facility] LPN [facility] Work Phone: 10-12-2023 Miscellaneous Notes Called and spoke with Shelia in providers office, she confirmed will follow for services. [facility] LPN documented in this encounter [facility] 10-12-2023 Telephone encounter Note Called pt and sister Janell, left messages to call office, wanted to confirm home care services. [facility] LPN [facility] Work Phone: 10-09-2023 Note [facility] 10-06-2023 Note [facility] 10-04-2023 Note [facility] 08-04-2023 Telephone encounter Note Spoke with José Manuel Ashton's on August 04, 2023. Informed of results / instructions as stated above. Maryuri LAMBERT Romero states she will be taking José Manuel to a Machine Operator Farm[employer] for his potassium but he will still have to follow up here for his A1c. CLOSED [facility] 08-04-2023 Miscellaneous Notes Spoke with José Manuel Ashton's on August 04, 2023. Informed of results / instructions as stated above. Maryuri LAMBERT Romero states she will be taking José Manuel to a Machine Operator Farm[employer] for his potassium but he will still have to follow up here for his A1c. CLOSED Called patients home and left VM to call back office at [phone]. Please give message below. Thank you I unfortunately cannot do clearance without proper follow-ups. His glucose levels were very high based on the A1c when I saw him 3 months ago If this is an urgent/time sensitive surgery, they can go ahead and do it if the benefits outweigh the risks. If it is elective, then his blood sugars should ideally be controlled beforehand. We have not received anything from the anaesthesia/surgical team HH Received a call from patients (Janell) she state's patient is scheduled for surgery at the [facility] on 08/08/23. They are requesting surgical clearance for diabetes from Dr Peterson. We have not received their fax as of yet. Recommended she have them re-fax the form. Also, apparently he had recent labs drawn with [facility] including an updated A1c, recommended she have them faxed to us for review. Last was in 05/2023 and it was 13.0. surgery is wanting an A1c <8.0 for surgery. Discussed that while the surgery is soon we aim for the safest outcome so if the A1c is not optimal we will need to have Dr. Peterson review the labs and decide next steps. Will await documents and lab results to proceed. documented in this encounter [facility] 08-03-2023 Telephone encounter Note Called patients home and left VM to call back office at [phone]. Please give message below. [facility] 08-03-2023 Telephone encounter Note Thank you I unfortunately cannot do clearance without proper follow-ups. His glucose levels were very high based on the A1c when I saw him 3 months ago If this is an urgent/time sensitive surgery, they can go ahead and do it if the benefits outweigh the risks. If it is elective, then his blood sugars should ideally be controlled beforehand. We have not received anything from the anaesthesia/surgical team HH [facility] Work Phone: 08-01-2023 Telephone encounter Note Pt called and stated that the Flomax capsules gets stuck in throat so he can't take it and would like it to be in tablet form or change medication. Pt also stated that he has not have the Proscar and would need a Rx for that, please advise. Julieta odonnell MA [facility] 08-01-2023 Miscellaneous Notes Pt called and stated that the Flomax capsules gets stuck in throat so he can't take it and would like it to be in tablet form or change medication. Pt also stated that he has not have the Proscar and would need a Rx for that, please advise. Julieta odonnell MA documented in this encounter [facility] 07-28-2023 Telephone encounter Note Received a call from patients (Janell) she state's patient is scheduled for surgery at the [facility] on 08/08/23. They are requesting surgical clearance for diabetes from Dr Peterson. We have not received their fax as of yet. Recommended she have them re-fax the form. Also, apparently he had recent labs drawn with [facility] including an updated A1c, recommended she have them faxed to us for review. Last was in 05/2023 and it was 13.0. surgery is wanting an A1c <8.0 for surgery. Discussed that while the surgery is soon we aim for the safest outcome so if the A1c is not optimal we will need to have Dr. Peterson review the labs and decide next steps. Will await documents and lab results to proceed. [facility] 07-12-2023 Note [facility] 07-12-2023 History of Present illness Narrative ESTABLISHED PATIENT OFFICE VISIT HISTORY OF PRESENT ILLNESS Patient presents with: Benign Prostatic Hypertrophy Nocturia José Manuel Ashton is a 62 year old male who presents with for follow up regarding his LUTS LAB RESULTS Creatinine Date Value Ref Range Status 06/13/2023 2.17 (H) 0.73 - 1.22 mg/dL Final PSA (ng/mL) Date Value 01/19/2022 0.74 07/05/2021 0.97 04/09/2021 1.90 02/17/2020 0.75 PSA Screening (ng/mL) Date Value 11/01/2022 0.80 Color (no units) Date Value 06/04/2023 Light Yellow Clarity (no units) Date Value 06/04/2023 Clear Glucose, Urine (no units) Date Value 06/04/2023 2+ Bilirubin, Urine (no units) Date Value 06/04/2023 Negative Ketones, Urine (no units) Date Value 06/04/2023 Negative Specific [place], Ur (no units) Date Value 06/04/2023 1.020 Hemoglobin/Blood,Ur (no units) Date Value 06/04/2023 Trace pH, Urine (no units) Date Value 06/04/2023 6.5 Protein, Urine (no units) Date Value 06/04/2023 3+ Urobilinogen (no units) Date Value 06/04/2023 0.2 EU/dL Nitrites (no units) Date Value 06/04/2023 Negative Leuk Esterase (no units) Date Value 06/04/2023 Negative ALLERGIES Allergen Reactions Penicillins Unknown Pt states he thinks he had a reaction as a child MEDICATIONS: insulin lispro (HUMALOG KWIKPEN) 100 unit/mL^Inject 8 Units subcutaneously three times a day before meals.^Disp: 3 Each^Rfl: 2 hydrALAZINE (APRESOLINE) 25 mg tablet^Take 1 tablet by mouth two times a day.^Disp: 120 tablet^Rfl: 0 furosemide (LASIX) 20 mg tablet^Take 1 tablet by mouth daily after lunch.^Disp: 30 tablet^Rfl: 0 insulin glargine (BASAGLAR KWIKPEN U-100 INSULIN) 100 unit/mL (3 mL)^Inject 24 Units subcutaneously daily at bedtime.^Disp: 7.2 mL^Rfl: 2 pen needle,diabetic dual safty (BD AUTOSHIELD DUO PEN NEEDLE) 30 gauge x 3/16" ndle^1 Applicator four times daily.^Disp: 360 Each^Rfl: 0 amLODIPine (NORVASC) 5 mg tablet^Take 1 tablet by mouth two times a day.^Disp: 180 tablet^Rfl: 0 senna (SENOKOT) 8.6 mg tab^Take 1 tablet by mouth once daily.^Disp: ^Rfl: carvedilol (COREG) 25 mg tablet^Take 1 tablet by mouth two times a day with meals.^Disp: ^Rfl: cyclobenzaprine (FLEXERIL) 10 mg tablet^Take 1 tablet by mouth three times a day as needed for muscle spasm.^Disp: 15 tablet^Rfl: [address] (PROTONIX) 40 mg tablet^Take 1 tablet by mouth DAILY (6 AM).^Disp: 30 tablet^Rfl: 2 REVIEW OF SYSTEMS GENERAL:no unintentional weight loss, malaise or fevers. NEUROLOGIC: pt is alert and oriented GENITOURINARY: Positive for BPH The remainder of the ROS was reviewed and is negative. 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 Detected on EMG Pseudophakia of both eyes 10/21/2022 Pseudophakia, left eye 08/18/2022 Rectal cancer (HCC) Refractive error 10/21/2022 Spinal stenosis of lumbar region with neurogenic claudication Vitamin D deficiency Vitreous syneresis of both eyes 10/21/2022 FAMILY HISTORY Problem Relation Age of Onset other (Heart stroke) Mother other (Glaucoma lung cancer) Father Leukemia Sister Glaucoma Sister Glaucoma Brother PAST SURGICAL HISTORY Procedure Laterality Date COLONOSCOPY GEN ANES 07/24/2020 Invasive Adenocarcinoma arising in a Tubulovillous Adenoma in the lower rectum, Tubular Adenomas, Fragment of Hyperplastic polyp, Internal Hemorrhoids EGD 07/24/2020 Will's Esophagus, Hyperplastic polyp in Duodenum EXCISION OF RECTAL TUMOR, TRANSANAL 11/24/2020 Dr. Ahmadi REMV CATARACT EXTRACAP,INSERT LENS Left 08/18/2022 REMV CATARACT EXTRACAP,INSERT LENS Right 09/08/2022 SOCIAL HISTORY Social History Tobacco Use Smoking status: Former Packs/day: 1.00 Years: 37.00 Additional pack years: 0.00 Total pack years: 37.00 Types: Cigarettes Quit date: 04/03/2010 Years since quittin.2 Smokeless tobacco: Never Tobacco comments: Smokes [place] Vaping Use Vaping Use: Never used Substance Use Topics Alcohol use: Not Currently Drug use: Yes Types: Marijuana Comment: daily PHYSICAL EXAMINATION General appearance: Well appearing, alert, in no acute distress, well-hydrated, well nourished Psych Alert and oriented to person, place and time Respiratory: no wheezing or rhonchi Genitourinary: MALE EXAM: Exam NOT Indicated 01/19/2022 PSA 0.7 03/22/2021 Office cysto neg (microhem) 03/15/2021 Cytology neg 02/19/2021 CT a/p neg 02/17/2020 PSA 0.8, no Fhx of Design Eng Assessment and Plan: Microhematuria- prior w/u neg, no gross LUTS- baseline IPSS 26, nocturia 2-3x, freq Q 2h, ++ urgency, no leak, no hematuira/dysuria - poor BS control and "pinched nerve", to have surgery in August - on Flomax but he's not sure about the Proscar; will check and let me know - I told them any BPH surgical intervention would require preoperative UDS; re-eval after surgery PSA ordered documented in this encounter [facility] 06-22-2023 History of Present illness Narrative Images from the original note were not included. TELE HEALTH VISIT This Tele health visit is a virtual encounter. It required patient-provider interaction for the medical decision making as documented below. Chief complaint : Subjective : José Manuel Ashton is a 62 year old male seen for CKD follow up. SUBJECTIVE: José Manuel Ashton is a 62 year old White male with past medical history significant for : Type 2 diabetes, hypertension, hyperlipidemia, depression, colon to [facility] on 05/23/23 with polyp, lumbar radiculopathy, history of marijuana use in the past who presented with poorly controlled blood glucose and blood pressure. Blood glucose was more than 400 in the PCPs office was scented to the emergency room patient with associated generalized weakness and noncompliant with home medication. Patient with chronic back pain and nausea and vomiting. He stated that make him not to take any p.o. Blood pressure was elevated. Admission patient noted to have elevated BUN and creatinine. BUN was 1.89 previous baseline creatinine was 1.65 on 11/01/2022. With positive beta-hydroxybutyrate of 0.92 A1c of 13.0 Patient was diagnosed with acute kidney injury on chronic kidney disease stage III Versus underlying stage III chronic kidney disease with baseline creatinine around 1.9. Patient's creatinine stayed 1.9 and noted to be underlying stage III chronic kidney disease from diabetic nephropathy had nephrotic range proteinuria with albumin/creatinine history 5008 mg/g. Patient with type 2 diabetes and A1c was 13.0. Patient's workup revealed urine analysis with RBC of 6-10 and granular casts present. Kidney ultrasound no hydronephrosis bilateral symmetrical kidney and no increased echogenicity. Detailed workup for GN was ordered specially for nephrotic syndrome. 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 hydrALAZINE (APRESOLINE) 25 mg tablet Take 1 tablet by mouth two times a day. furosemide (LASIX) 20 mg tablet Take 1 tablet by mouth daily after lunch. insulin glargine (BASAGLAR KWIKPEN U-100 INSULIN) 100 unit/mL (3 mL) Inject 24 Units subcutaneously daily at bedtime. pen needle,diabetic dual safty (BD AUTOSHIELD DUO PEN NEEDLE) 30 gauge x 3/16" ndle 1 Applicator four times daily. amLODIPine (NORVASC) 5 mg tablet Take 1 tablet by mouth two times a day. senna (SENOKOT) 8.6 mg tab Take 1 tablet by mouth once daily. carvedilol (COREG) 25 mg tablet Take 1 tablet by mouth two times a day with meals. cyclobenzaprine (FLEXERIL) 10 mg tablet Take 1 tablet by mouth three times a day as needed for muscle spasm. pantoprazole DR (PROTONIX) 40 mg tablet Take 1 tablet by mouth DAILY (6 AM). Current Facility-Administered Medications Medication Dose Route Frequency sodium chloride 0.9 % (flush) 10 mL (BD POSIFLUSH) 10 mL INTRAVENOUS DIRECTED PRN Social History Tobacco Use Smoking status: Former Packs/day: 1.00 Years: 37.00 Additional pack years: 0.00 Total pack years: 37.00 Types: Cigarettes Quit date: 04/03/2010 Years since quittin.2 Smokeless tobacco: Never Tobacco comments: Smokes [place] Vaping Use Vaping Use: Never used Substance Use Topics Alcohol use: Not Currently Drug use: Yes Types: Marijuana Comment: daily PAST SURGICAL HISTORY Procedure Laterality Date COLONOSCOPY GEN ANES 07/24/2020 Invasive Adenocarcinoma arising in a Tubulovillous Adenoma in the lower rectum, Tubular Adenomas, Fragment of Hyperplastic polyp, Internal Hemorrhoids EGD 07/24/2020 Will's Esophagus, Hyperplastic polyp in Duodenum EXCISION OF RECTAL TUMOR, TRANSANAL 11/24/2020 Dr. Ahmadi REMV CATARACT EXTRACAP,INSERT LENS Left 08/18/2022 REMV CATARACT EXTRACAP,INSERT LENS Right 09/08/2022 FAMILY HISTORY Problem Relation Age of Onset other (Heart stroke) Mother other (Glaucoma lung cancer) Father Leukemia Sister Glaucoma Sister Glaucoma Brother FAMILY HISTORY OF: CVA:No CAD: No DIABETES: No HTN: No KIDNEY DISEASE: No NEPHROLITHIASIS: No REVIEW OF SYSTEMS: CONSTITUTIONAL: Denies fevers, chills, and weight changes. Denies fatigue/malaise. EYES: No acute vision change or ocular pain. Denies dryness or redness of eyes. ENT: No difficulties with hearing. No sinus pain or sore throat.No epistaxis, nasal discharge/congestion. No dry mouth, oral ulceration, or gingivitis. PULMONARY: Denies shortness of breath, wheezing, cough or hemoptysis. CARDIOLOGY: Denies chest pain, palpitations, OTT, orthopnea or PND. GI: No anorexia, nausea, vomiting, dysphagia, diarrhea, constipation, abdominal pain, hematochezia or melena. : No urinary hesitancy or dribbling. No nocturia or urinary frequency. No abnormal discharge. No hematuria, dysuria, or flank pain. MUSCULO-SKELETAL: No joint pain, swelling or erythema. ENDO: Denies any Cold or Heat Intolerance. Denies any polyuria or polydipsia. HEME: Denies any bleeding problems, clotting problems or easy Bruising. SKIN: Denies any rashes or skin changes. No itching. NEUROLOGIC: Denies any headache, Dizziness or seizures. No numbness, tingling, weakness or tremors. EXTREMITIES: Denies any lower Extremity edema. Denies any claudication or peripheral ulcer. [A full 12 point ROS was obtained and is negative other than that cited above.] PHYSICAL EXAMINATION: VIDEO EXAM: (if done, performed via video enabled technology) No exam performed LAB DATA Latest Ref Rn 05/24/2023 05/25/2023 Albumin 3.43 - 5.41 g/dL 3.20 (L) Alpha 1 Globulin 0.18 - 0.43 g/dL 0.35 Alpha 2 Globulin 0.42 - 0.98 g/dL 1.08 (H) Beta Globulin 0.61 - 1.17 g/dL 0.90 Gamma Globulin 0.53 - 1.51 g/dL 0.47 (L) Interpretation (Prot Electro) No definitive M protein is identified on protein electrophoresis. No definitive M protein is identified on protein electrophoresis. M-Protein Location -- M-Protein Concentration <=0.00 g/dL 0.00 SPE Staff Review Reviewed by Sebas Ocampo MD, Ph.D ([id number]) Comment (Serum Prot Electro) A reflex test for Monoclonal Protein analysis (immunofixation) has been ordered. Interpretation Comment for Protein Electrophoresis Hypogammaglobulinemia is present, which can be seen in the setting of monoclonal gammopathy. If clinically indicated, monoclonal protein analysis and serum free light chain analysis are suggested to evaluate further for monoclonal gammopathy. Creatinine, Ur Random (UCRR) 20.0 - 300.0 mg/dL 74.2 Albumin, Urine Random mg/L 3,715.7 Albumin/Creat Ratio <30 mg/g 5,008 (H) [place] Free, Serum 3.3 - 19.4 mg/L 57.0 (H) Lambda Free, Serum 5.7 - 26.3 mg/L 36.1 (H) K/L Ratio, Serum 0.26 - 1.65 1.58 DNA Antibody <=200 IU/mL 16 DNA Antibody Qualitative Interpretation Negative Negative MPA Result No M protein is identified. No M protein is identified. Staff Review ([facility]) Reviewed by Sebas Ocampo MD, Ph.D ([id number]) C3 86 - 166 mg/dL 147 C4 13 - 46 mg/dL 26 Phospholipase A2 Receptor, FABIENNE, S RU/mL <2 JAMARCUS Negative Negative Protein, Total 6.3 - 8.0 g/dL 6.0 (L) PLA2R. Immunofluorescence, S Negative Negative THSD7A Ab, S Negative Negative Lab work on 06/13/2023. Sodium 141 potassium 4.7 CO2 26 BUN 46 creatinine 2.17 glucose 158 calcium 8.6 GFR 33 A/P 1. chronic kidney disease stage III with baseline creatinine now around 1.9-2.2 mg/dL with GFR of 40 mill per minute, . Most likely in the setting of diabetic nephropathy 2. Type 2 diabetes, uncontrolled last A1c 13.0 3. Hyperparathyroidism 4. Hyponatremia likely pseudohyponatremia in the setting of hyperglycemia 5. Hyperlipidemia 6. Hypertension 7. Anemia Plan of management: Patient with underlying stage III chronic kidney disease GFR between 33-40 mill per minute and creatinine 1.9 to 2.2 mg deciliter. Likely in the setting of diabetic kidney disease, last A1c 13.0 on 05/23/2023 Patient have not done chronic kidney disease workup of prior to this visit Previous nephrotic syndrome workup was unremarkable suggestive most likely diabetic kidney disease amLODIPine (NORVASC) 5 mg tablet Take 1 tablet by mouth two times a day. 06/10/2023 09/08/2023 carvedilol (COREG) 25 mg tablet Take 1 tablet by mouth two times a day with meals. hydrALAZINE (APRESOLINE) 25 mg tablet Take 1 tablet by mouth two times a day. furosemide (LASIX) 20 mg tablet Take 1 tablet by mouth daily after lunch. Add Losartan 50 mg po qhs Instructions Regular monitoring of renal function Aggressive blood pressure control Avoid smoking and secondhand smoke Avoidance of nephrotoxins - IV contrast, nonsteroidal anti-inflammatory agents Avoid excessive salt and protein intake Fluid restriction and dietary modifications as directed Counseled on weight loss. Exercise - walk 3-4 times per week. Follow up as scheduled to review test results Continue meds as prescribed. Low salt diet. No follow-ups on file. documented in this encounter [facility] 06-20-2023 Evaluation note Diagnosis Stage 3a chronic kidney disease (HCC)- Primary Hypertension, essential Unspecified essential hypertension Vitamin D deficiency Unspecified vitamin D deficiency Other proteinuria Secondary hyperparathyroidism (HCC) Secondary hyperparathyroidism (of renal origin) documented in this encounter [facility]03-11-2024 NoteHNO ID: [id number] Author: KANWAL CALLE RN Service: Nursing Author Type: Registered Nurse Type: Nursing Progress Note Filed: 06/12/2023 14:16 Note Text: Other: watched channel 95 fall video and verballized understanding.[facility]03-11-2024 History of Past illness Narrative* Problem Noted Date Diagnosed Date Resolved Date Hyperkalemia 06/12/2023 06/13/2023 Cellulitis of left upper extremity 06/03/2023 06/11/2023 Hyperkalemia 06/03/2023 06/11/2023 Aftercare 05/26/2023 06/11/2023 Obesity, Class I, BMI 30-34.9 05/25/2023 06/11/2023 Pain in left hip 01/04/2023 05/25/2023 OTT (dyspnea on exertion) 12/01/2022 Refractive error 10/21/2022 05/25/2023 Pseudophakia of both eyes 10/21/2022 Vitreous syneresis of both eyes 10/21/2022 05/25/2023 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, with long-term current use of insulin 10/21/2022 024 Allergic arthritis of left hip 09/14/2022 05/25/2023 Nuclear senile cataract of right eye 09/08/2022 09/08/2022 Nuclear sclerotic cataract of left eye 08/18/2022 08/18/2022 Acute kidney injury 03/30/2022 06/11/19 24 Nausea and vomiting 03/30/2022 05/25/19 24 Mood disorder 03/01/2022 05/25/2023 Hyperglycemia 01/18/2022 05/25/2023 Abdominal discomfort 01/18/2022 022 Constipation 01/18/2022 05/25/2023 Glaucoma suspect of both eyes 11/05/2021 05/25/2023 Nuclear senile cataract of both eyes 11/05/2021 09/09/2022 Benign prostatic hyperplasia 07/05/2021 05/25/2023 Severe protein-calorie malnutrition 04/16/2021 05/25/2023 DKA (diabetic ketoacidosis) 04/13/2021 05/25/2023 Microscopic hematuria 03/08/20212021 H/O medication noncompliance 03/08/2021 05/25/2023 Dizziness 02/20/2021 05/25/2023 Conduct disorder 09/07/2020 05/25/2023 Malignant neoplasm of rectum 08/04/2020 05/25/2023 Overview: Managed by Dr. Ahmadi Severe episode of recurrent major depressive disorder, without psychotic features 05/28/2020 Weakness 05/05/2020 06/15/2020 Decreased mobility and endurance 05/05/2020 06/15/2020 Obesity, Class II, BMI 35-39.9 02/20/2020 05/25/2023 documented as of this encounter (statuses as of 06/20/2023) [facility]03-11-2024 History of Past illness Narrative* Problem Noted Date Diagnosed Date Resolved Date Hyperkalemia 06/12/2023 06/13/2023 Cellulitis of left upper extremity 06/03/2023 06/11/2023 Hyperkalemia 06/03/2023 06/11/2023 Aftercare 05/26/2023 06/11/2023 Obesity, Class I, BMI 30-34.9 05/25/2023 06/11/2023 Pain in left hip 01/04/2023 05/25/2023 OTT (dyspnea on exertion) 12/01/2022 Refractive error 10/21/2022 05/25/2023 Pseudophakia of both eyes 10/21/2022 Vitreous syneresis of both eyes 10/21/2022 05/25/2023 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, with long-term current use of insulin 10/21/2022 024 Allergic arthritis of left hip 09/14/2022 05/25/2023 Nuclear senile cataract of right eye 09/08/2022 09/08/2022 Nuclear sclerotic cataract of left eye 08/18/2022 08/18/2022 Acute kidney injury 03/30/2022 06/11/19 24 Nausea and vomiting 03/30/2022 05/25/19 24 Mood disorder 03/01/2022 05/25/2023 Hyperglycemia 01/18/2022 05/25/2023 Abdominal discomfort 01/18/2022 022 Constipation 01/18/2022 05/25/2023 Glaucoma suspect of both eyes 11/05/2021 05/25/2023 Nuclear senile cataract of both eyes 11/05/2021 09/09/2022 Benign prostatic hyperplasia 07/05/2021 05/25/2023 Severe protein-calorie malnutrition 04/16/2021 05/25/2023 DKA (diabetic ketoacidosis) 04/13/2021 05/25/2023 Microscopic hematuria 03/08/20212021 H/O medication noncompliance 03/08/2021 05/25/2023 Dizziness 02/20/2021 05/25/2023 Conduct disorder 09/07/2020 05/25/2023 Malignant neoplasm of rectum 08/04/2020 05/25/2023 Overview: Managed by Dr. Ahmadi Severe episode of recurrent major depressive disorder, without psychotic features 05/28/2020 Weakness 05/05/2020 06/15/2020 Decreased mobility and endurance 05/05/2020 06/15/2020 Obesity, Class II, BMI 35-39.9 02/20/2020 05/25/2023 documented as of this encounter (statuses as of 06/22/2023) [facility]03-11-2024 History of Past illness Narrative* Problem Noted Date Diagnosed Date Resolved Date Hyperkalemia 06/12/2023 06/13/2023 Cellulitis of left upper extremity 06/03/2023 06/11/2023 Hyperkalemia 06/03/2023 06/11/2023 Aftercare 05/26/2023 06/11/2023 Obesity, Class I, BMI 30-34.9 05/25/2023 06/11/2023 Pain in left hip 01/04/2023 05/25/2023 OTT (dyspnea on exertion) 12/01/2022 Refractive error 10/21/2022 05/25/2023 Pseudophakia of both eyes 10/21/2022 Vitreous syneresis of both eyes 10/21/2022 05/25/2023 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, with long-term current use of insulin 10/21/2022 024 Allergic arthritis of left hip 09/14/2022 05/25/2023 Nuclear senile cataract of right eye 09/08/2022 09/08/2022 Nuclear sclerotic cataract of left eye 08/18/2022 08/18/2022 Acute kidney injury 03/30/2022 06/11/19 24 Nausea and vomiting 03/30/2022 05/25/19 24 Mood disorder 03/01/2022 05/25/2023 Hyperglycemia 01/18/2022 05/25/2023 Abdominal discomfort 01/18/2022 022 Constipation 01/18/2022 05/25/2023 Glaucoma suspect of both eyes 11/05/2021 05/25/2023 Nuclear senile cataract of both eyes 11/05/2021 09/09/2022 Benign prostatic hyperplasia 07/05/2021 05/25/2023 Severe protein-calorie malnutrition 04/16/2021 05/25/2023 DKA (diabetic ketoacidosis) 04/13/2021 05/25/2023 Microscopic hematuria 03/08/20212021 H/O medication noncompliance 03/08/2021 05/25/2023 Dizziness 02/20/2021 05/25/2023 Conduct disorder 09/07/2020 05/25/2023 Malignant neoplasm of rectum 08/04/2020 05/25/2023 Overview: Managed by Dr. Ahmadi Severe episode of recurrent major depressive disorder, without psychotic features 05/28/2020 Weakness 05/05/2020 06/15/2020 Decreased mobility and endurance 05/05/2020 06/15/2020 Obesity, Class II, BMI 35-39.9 02/20/2020 05/25/2023 documented as of this encounter (statuses as of 07/13/2023) [facility]03-09-2024 [facility]03-09-2024 NoteHNO ID: [id number] Author: NOTE, INTERFACE, ? Service: ? Author Type: ? Type: Progress Notes Filed: 06/10/2023 03:42 Note Text: Epic Scheduled Downtime: 06/10/2023 1:00:00 AM to 06/10/2023 3:24:[facility]03-04-2024 Note [facility]03-03-2024 [facility] 06-03-2023 [facility]03-01-2024 [facility]02-27-[facility]26-[facility]25[facility]20-[facility]02-20-2024 History of Present illness Narrative* Jen Bergman, RN - 05/23/2023 1:10 PM EST PRIMARY CARE COORDINATION DISCHARGE Pt established w/ Non-CC PCP. Patient has been identified by name and date of : Yes Patient discharged from Primary Care Coordination: YES Active Goals - Current status as of 05/23/2023 at 1:10 PM Most Recent Address all appropriate HM and disease care gaps No change (04/14/2023) Annual BMP On track (05/19/2023) Last 11/01/22 Annual foot exam On track (09/29/2022) Annual microalbumin No change (04/14/2023) Annual retina exam On track (09/29/2022) Blood Pressure < 130/80 182/99 (05/23/2023) Confirm medication adherence of all prescribed medications and uses them correctly No change (03/24/2021) HBA1C drawn quarterly No change (04/14/2023) Hemoglobin A1C < 7 13.6 (11/01/2022) Improve your coping skills No change (10/28/2020) LDL at or below 100 mg/dL or on a high statin No change (11/24/2022) Last 11/01/22 LDL = 129 (Down) Crestor 10mg Reduce fat intake On track (05/25/2021) Reduce sugar intake On track (05/25/2021) Tobacco cessation Understands and follows a low salt diet No change (09/23/2020) Understands and follows DASH diet Weight mgmt/activity No change (09/23/2020) Goals met Non-CC PCP Goals not met Patient engagement has not occurred despite ongoing education provided regarding the importance of following the physician plan of treatment Patient knowledgeable and confident in contacting Health Care Providers for questions or concerns: Not applicable Reinforced with patient and/or caregiver that Primary Care Coordination may be reinitiated if a change in status warrants navigation readmission: NO What was the Focus/Challenges addressed in Care Coordination? Education on Chronic Disease Management Care Gaps Appropriate level of care options - Utilization Psychosocial needs Disposition: Follow up with PCP Care Team Tab - "End": YES Jen Bergman RN [facility] History of Present illness Narrative* Mónica Peterson MD - 05/23/2023 11:30 AM EST ENDOCRINOLOGY CLINIC NOTE Mr. 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 He was admitted to the hospital in 01/2022 with apathy and inability to care for himself in the setting of chronic cannabis use. It seems that he also had psychiatric hospitalization before. He is pain due to back issues and has not been taking the mediations He was supposed to be on insulin but has not been taking it. He was on trulicity and was then switched to Ozempic. He gets severe nausea and drooling with it. Blood sugar 444 in the office today A1c: 13.9% today 05/18/22 16:08 06/29/22 17:06 11/01/22 12:40 Hemoglobin A1C 13.6 (H) Hemoglobin A1C (POCT) 9.7 ! 8.9 ! Current regimen: None. 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 Depression Diabetes (HCC) Dizziness Persistent Postural-Perceptual Dizziness (PPPD History of colonic polyps Hyperplastic HLD (hyperlipidemia) HTN (hypertension) Lumbar radiculopathy 12/09/2020 Detected on EMG Marijuana use Nuclear senile cataract of both eyes 11/05/2021 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 Ahmadi REMV CATARACT EXTRACAP,INSERT LENS Left 08/18/2022 REMV CATARACT EXTRACAP,INSERT LENS Right 09/08/2022 FAMILY HISTORY Problem Relation Age of Onset other (Heart stroke) Mother other (Glaucoma lung cancer) Father Leukemia Sister Glaucoma Sister Glaucoma Brother Social History Tobacco Use Smoking status: Former Packs/day: 1.00 Years: 37.00 Additional pack years: 0.00 Total pack years: 37.00 Types: Cigarettes Quit date: 04/03/2010 Years since quittin.1 Smokeless tobacco: Never Tobacco comments: Smokes [place] Vaping Use Vaping Use: Never used Substance Use Topics Alcohol use: Not Currently Drug use: Yes Types: Marijuana Comment: daily (Not in a hospital admission) Allergies As of Date: 05/23/2023 Allergen Noted Reaction PENICILLINS 07/24/2020 Unknown Fully Assessed 05/23/2023 Current Outpatient Medications Medication Sig Dispense Refill cyclobenzaprine (FLEXERIL) 10 mg tablet Take 1 tablet by mouth three times a day as needed for muscle spasm. 15 tablet 0 lisinopril (ZESTRIL) 5 mg tablet Take 1 tablet by mouth once daily. 30 tablet 1 oxyCODONE IR (ROXICODONE) 10 mg tab Take by mouth once daily. Blood-Glucose Meter monitoring kit For monitoring sugars 3x/day (patient on insulin) 1 Each 1 Lancets lancets Recommend check blood sugar once daily, rotate times. Sometimes check in the morning sometimes 2 hours after meals, sometimes at bedtime. Please bring in blood sugar log and have available for review. 100 Each 11 alcohol swabs (ALCOHOL PREP PADS) Apply 1 application to affected area as directed. Recommend checkblood sugar once daily, rotate times. Sometimes check in the morning sometimes 2 hours after meals,sometimes at bedtime. Please bring in blood sugar log and have available for review. 100 Each 3 tamsulosin (FLOMAX) 0.4 mg Take 1 capsule by mouth once daily. 90 capsule 0 blood sugar diagnostic (BLOOD GLUCOSE TEST) test strip 3x/day 100 Strip 11 cholecalciferol, Vitamin D3, (VITAMIN D3) 1,250 mcg (50,000 unit) cap capsule Take 1 capsule by mouth one time a week. (Patient not taking: Reported on 05/23/2023) 12 capsule 0 rosuvastatin (CRESTOR) 10 mg tablet Take 1 tablet by mouth daily at bedtime. (Patient not taking: Reported on 05/23/2023) 90 tablet 1 lisinopril (ZESTRIL) 10 mg tablet Take 1 tablet by mouth once daily. (Patient not taking: Reported on 05/23/2023) 90 tablet 0 dulaglutide (TRULICITY) 4.5 mg/0.5 mL pen injector Inject 4.5 mg subcutaneously one time a week. (Patient not taking: Reported on 05/23/2023) 12 Each 0 insulin glargine 100 unit/mL (3 mL) Inject 26 Units subcutaneously daily at bedtime. (Patient not taking: Reported on 05/23/2023) 6 Each 1 furosemide (LASIX) 20 mg tablet Take 1 tablet by mouth once daily. (Patient not taking: Reported on05/23/2023) 90 tablet 1 acetaminophen (TYLENOL) 500 mg tablet Take 2 tablets by mouth every 8 hours. (Patient not taking: Reported on 05/23/2023) 80 tablet 0 Sennosides (SENNA) 8.6 mg cap Take 1 capsule by mouth once daily. (Patient not taking: Reported on 05/23/2023) 30 capsule 0 lidocaine (LIDODERM) 5 % Apply 1 Patch as directed once daily. to affected area. Remove patch after12 hours. (Patient not taking: Reported on 05/23/2023) 15 Patch 0 pioglitazone (ACTOS) 45 mg tablet Take 1 tablet by mouth once daily. (Patient not taking: Reported on 05/23/2023) 90 tablet 3 ondansetron (ZOFRAN) 4 mg tablet Take by mouth every 8 hours as needed for nausea/vomiting. (Patient not taking: Reported on 05/23/2023) pantoprazole DR (PROTONIX) 40 mg tablet Take 1 tablet by mouth DAILY (6 AM). 30 tablet 2 Insulin [place], Disposable, (COMFORT EZ PEN NEEDLES) 29 gauge x 1/2" 1 Each once daily. (Patient not taking: Reported on 05/23/2023) 100 Each 3 Current Facility-Administered Medications Medication Dose Route Frequency Provider Last Rate Last Admin sodium chloride 0.9 % (flush) 10 mL (BD POSIFLUSH) 10 mL INTRAVENOUS DIRECTED PRN Sukumar Toney MD COMPLETE REVIEW OF SYSTEMS: As mentioned in the H&P PHYSICAL EXAM: 05/23/23 1108 BP: 195/109 Pulse: 97 Resp: 16 SpO2: 99% Weight: 109.2 kg (240 lb 11.9 oz) Height: 177.8 cm (5' 10") General: alert but looks ill Neuro: Alert and oriented Labs: As above Assessment and Recommendations: Mr. Ashton is a 62-year-old man presented to establish care for T2DM. His diabetes is poorly controlled as evidenced by the A1c level. He has not been checking his blood sugar and has not been taking his medications. He was on Trulicity and was then switched to Ozempic but it is causing GI issues and he feels nauseous and reported vomiting. His appetite is also poor. He was also supposed to be on insulin but is not taking any medications. The patient was ill when seen in the clinic today. His blood sugar in the office was 444 and his blood pressure was 195/105. I discussed with him and his sister that I recommend going to the emergency room because he will need more evaluation and we will likely need to be admitted to get his BP andblood sugar under control. They stated that he has pretesting for surgery tomorrow. I discussed with them that is not safe to undergo surgery with these parameters and his BP and blood sugars will need to be reasonably-controlled prior to the back surgery. I also expressed my concern regarding the poorly controlled BP and diabetes and the risks of heart attacks and strokes. The patient will be taken to the emergency room by our staff. ED was notified I thank my colleagues for involving me in the care of this patient My final recommendations will be communicated back to the requesting physician by way of shared Medical record or letter to requesting physician via US mail. Medical Decision Making: Problems: Low: Stable chronic illness Data: Unique test result(s) reviewed: 3+ Risk: High: Decision on hospitalization Medical Decision Making Level: 4 - Moderate This note was created using [employer] dictation software. You may find errors that were missed during proofreading. They are purely unintentional and if there are any concerns regarding this dictation, please do not hesitate to contact the dictating provider for clarification. Mónica Peterson MD [facility] History of Present illness Narrative* Jen Bergman RN - 05/19/2023 2:42 PM EST AG PRIMARY CARE COORDINATION FOLLOW-UP NOTE Patient identified by name and date of : NO Summary: PCC attempted routine f/u call - unable to leave a msg. Health leads screening tool questions performed? No N/A Concerns: N/A Goals: Active Goals - Current status as of 05/19/2023 at 2:43 PM Most Recent Address all appropriate HM and disease care gaps No change (04/14/2023) Annual BMP On track (05/19/2023) Last 11/01/22 Annual foot exam On track (09/29/2022) Annual microalbumin No change (04/14/2023) Annual retina exam On track (09/29/2022) Blood Pressure < 130/80 136/73 (01/04/2023) Confirm medication adherence of all prescribed medications and uses them correctly No change (03/24/2021) HBA1C drawn quarterly No change (04/14/2023) Hemoglobin A1C < 7 13.6 (11/01/2022) Improve your coping skills No change (10/28/2020) LDL at or below 100 mg/dL or on a high statin No change (11/24/2022) Last 11/01/22 LDL = 129 (Down) Crestor 10mg Reduce fat intake On track (05/25/2021) Reduce sugar intake On track (05/25/2021) Tobacco cessation Understands and follows a low salt diet No change (09/23/2020) Understands and follows DASH diet Weight mgmt/activity No change (09/23/2020) Health Maintenance Topics with due status: Overdue Topic Date Due RSV Vaccine Never done Colorectal Cancer Screening 07/24/2021 BP Controlled (<130/80) 10/05/2022 Urine Albumin:Creatinine Ratio 01/23/2023 HbA1C 02/01/2023 [employer] Operator plan for next outreach: Will follow-up in about a month. Signature: Jen Bergman RN May 19, 2023 documented in this encounterVan [facility]02-09-[facility]24 Miscellaneous Notes* Telephone Encounter - Elisabeth Parekh - 05/12/2023 8:10 AM EST Spoke to patients sister who stated she handles calls for José Manuel . Notified of canceled appt due to provider being out of office. She did not want to reschedule the appointment. Thanks Elisabeth Parekh documented in this encounterVan [facility]12-05-2023 Miscellaneous Notes* Telephone Encounter - Lily Segovia - 03/07/2023 12:25 PM ESTSummary: appointment cancellation Left voicemail at [phone] about rescheduling appt with Dr. Godinez. Left phone number for patient to call in. Tmr 03-07-23 12:23pm documented in this encounterVan [facility]10-27-2023 History of Present illness Narrative* Jen Bergman RN - 01/27/2023 3:33 PM EDT AG PRIMARY CARE COORDINATION FOLLOW-UP NOTE Patient identified by name and date of : NO Summary: PCC attempted routine f/u call to pt - left msg. Health leads screening tool questions performed? No N/A Concerns: N/A Goals: Goals Address all appropriate HM and disease care gaps Annual BMP Last 11/01/22 Annual foot exam Annual microalbumin Annual retina exam Blood Pressure < 130/80 Confirm medication adherence of all prescribed medications and uses them correctly HBA1C drawn quarterly Hemoglobin A1C < 7 Improve your coping skills LDL at or below 100 mg/dL or on a high statin Last 11/01/22 LDL = 129 (Down) Crestor 10mg Reduce fat intake Reduce sugar intake Tobacco cessation Understands and follows a low salt diet Understands and follows DASH diet Weight mgmt/activity [employer] Operator plan for next outreach: Will follow-up in about 1 month. Signature: Jen Bergman RN January 27, 2023 documented in this encounterVan [facility]10-23-2023 History of Present illness Narrative* Mark Godinez MD - 01/23/2023 2:28 PM EDT ORTHOPAEDIC OFFICE NOTE CHIEF COMPLAINT: Left hip pain HISTORY OF PRESENT ILLNESS: José Manuel Ashton is a 62 year old male who presents for Follow-up evaluation of left hip pain. Patientcontinues to have severe pain that he locates in the low back buttock extending into his groin and down the medial thigh to the level of the knee. He also has numbness involving the entire leg. This is worse with any sort of activity. He is using a cane to assist with ambulation. He is seen multiple specialist for this issue. He denies current fevers chills nausea vomiting weight loss fatigue or malaise. Reviewed nursing note and current pain scale. 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 Ahmadi REMV CATARACT EXTRACAP,INSERT LENS Left 08/18/2022 REMV CATARACT EXTRACAP,INSERT LENS Right 09/08/2022 FAMILY HISTORY Problem Relation Age of Onset other (Heart stroke) Mother other (Glaucoma lung cancer) Father Leukemia Sister Glaucoma Sister Glaucoma Brother Social History Tobacco Use Smoking status: Former Packs/day: 1.00 Years: 37.00 Additional pack years: 0.00 Total pack years: 37.00 Types: Cigarettes Quit date: 04/03/2010 Years since quittin.8 Smokeless tobacco: Never Tobacco comments: Smokes [place] Vaping Use Vaping Use: Never used Substance Use Topics Alcohol use: Not Currently Drug use: Yes Types: Marijuana Comment: daily MEDICATIONS: Current Outpatient Medications Medication Sig cyclobenzaprine (FLEXERIL) 10 mg tablet Take 1 tablet by mouth three times a day as needed for muscle spasm. cholecalciferol, Vitamin D3, (VITAMIN D3) 1,250 mcg (50,000 unit) cap capsule Take 1 capsule by mouth one time a week. lisinopril (ZESTRIL) 5 mg tablet Take 1 tablet by mouth once daily. rosuvastatin (CRESTOR) 10 mg tablet Take 1 tablet by mouth daily at bedtime. lisinopril (ZESTRIL) 10 mg tablet Take 1 tablet by mouth once daily. dulaglutide (TRULICITY) 4.5 mg/0.5 mL pen injector Inject 4.5 mg subcutaneously one time a week. insulin glargine 100 unit/mL (3 mL) Inject 26 Units subcutaneously daily at bedtime. oxyCODONE IR (ROXICODONE) 10 mg tab Take by mouth once daily. furosemide (LASIX) 20 mg tablet Take 1 tablet by mouth once daily. acetaminophen (TYLENOL) 500 mg tablet Take 2 tablets by mouth every 8 hours. Sennosides (SENNA) 8.6 mg cap Take 1 capsule by mouth once daily. lidocaine (LIDODERM) 5 % Apply 1 Patch as directed once daily. to affected area. Remove patch after12 hours. Blood-Glucose Meter monitoring kit For monitoring sugars 3x/day (patient on insulin) Lancets lancets Recommend check blood sugar once daily, rotate times. Sometimes check in the morning sometimes 2 hours after meals, sometimes at bedtime. Please bring in blood sugar log and have available for review. alcohol swabs (ALCOHOL PREP PADS) Apply 1 application to affected area as directed. Recommend checkblood sugar once daily, rotate times. Sometimes check in the morning sometimes 2 hours after meals,sometimes at bedtime. Please bring in blood sugar log and have available for review. pioglitazone (ACTOS) 45 mg tablet Take 1 tablet by mouth once daily. tamsulosin (FLOMAX) 0.4 mg Take 1 capsule by mouth once daily. ondansetron (ZOFRAN) 4 mg tablet Take by mouth every 8 hours as needed for nausea/vomiting. Insulin [place], Disposable, (COMFORT EZ PEN NEEDLES) 29 gauge x 1/2" 1 Each once daily. blood sugar diagnostic (BLOOD GLUCOSE TEST) test strip 3x/day pantoprazole DR (PROTONIX) 40 mg tablet Take 1 tablet by mouth DAILY (6 AM). Current Facility-Administered Medications Medication Dose Route Frequency sodium chloride 0.9 % (flush) 10 mL (BD POSIFLUSH) 10 mL INTRAVENOUS DIRECTED PRN ALLERGIES: ALLERGIES Allergen Reactions Penicillins Unknown Pt states he thinks he had a reaction as a child PHYSICAL EXAMINATION: Resp 18 Ht 5' 10" (1.78m) Wt 251 lb (113.9kg) BMI 36.01 kg/(m^2). General Appearance: Well appearing, alert, in no acute distress, well-hydrated, well nourished. Skin: Skin color, texture, turgor normal, no suspicious rashes or lesions. Psych: Patient is alert and oriented to person, time and place. Mood and affect are normal. Respiratory: Breathing is symmetric and unlabored Gait: Patient was examined in a wheelchair today. Extremities: Left lower extremity is examined. Skin is intact without erythema, ecchymosis or surgical scar. There is no significant swelling or edema. There is no focal tenderness or palpable mass. Range of motion of the hip is extremely painful for the patient. Lymphatic: There is no palpable lymphadenopathy Peripheral Pulses: Normal. Neurologic: Bilateral lower extremities were examined. There is 5/5 strength with hip flexion, kneeextension, dorsiflexion, EHL, plantar flexion. Sensation intact in all nerve dermatomes IMAGES: No results found for this or any previous visit (from the past 36 hour(s)). Plan ASSESSMENT AND PLAN: 1. Primary osteoarthritis of left hip - ICD9: 715.15, ICD10: M16.12 Functional Plan: Patient is a 62-year-old male presenting for follow-up evaluation of left hip pain. He does have some degenerative change on recent MRI. This could certainly be explanatory of some of his symptoms. Specifically, pain in the groin extending down the thigh, could be related to his ost eoarthritis. I do not think that explains all of his symptoms - specifically pain in the low back radiating down the leg to the level of the foot and associated numbness. He has had intra-articular injections in the past which he did not think were effective. I discussed this with him in detail. I do think he would be appropriate to try another diagnostic/therapeutic intra-articular corticosteroid injection. I instructed him to pay close attention to how it makes him feel even in the short-term. I will see him back to discuss its effectiveness several weeks after the injection. Should he get significant relief from the injection, even if short-lived, could consider intervention with hip replacement in the future. Currently I would be hesitant given the mild nature of his disease and questionable symptomatology with previous ineffective steroid injections. All of his questions were answered satisfactorily. He expressed understanding of and agreement with the treatment plan. Medical Decision Making: Problems: Low: Stable chronic illness Risk: Moderate: Moderate risk from testing/treatment Medical Decision Making Level: 3 - Low Return After Injection. Mark Godinez MD documented in this encounterVan [facility]10-06-2023 Miscellaneous Notes* Telephone Encounter - Valery Mcintyre - 01/06/2023 11:35 AM EDT Appointment made ----- Message from Rebecca Segundo sent at 01/06/2023 10:09 AM EDT ----- Regarding: Orthopedics / Gretchen Hip: Injection / Unable To Schedule Dx Subject Line Format: Orthopedics / [Provider Name or "Open & Body Part"] / [Issue] Patient has been identified by name and Date of (Y/N): y Patient: José Manuel Ashton Date of : 1960 Previous Provider Seen: Gretchen Body Part(s) Identified: left hip Diagnosis/Reason For Visit: injection in left hip Reason for the call/escalation: injection If reason for call/escalation is discharge from ED/ER or Hospital, which facility was the patient seen at: n/a Was an appointment scheduled (Y/N): n/a Person calling if other than patient: sister Return call to if other than patient: mendez Maciel Best contact number: [phone] Thank you, Rebecca Segundo January 06, 2023 10:09 AM documented in this encounterVan [facility]ert [facility]09-22-2023 Miscellaneous Notes* Telephone Encounter - Kenya Marrero - 12/23/2022 4:50 PM EDT Confirmation number: [id number] Consult to Pain Management Gave patient phone number to call as well, documented in this encounterVan Wert [facility]09-22-2023 History of Present illness Narrative* Belgica Vega DO - 12/23/2022 3:43 PM EDT Images from the original note were not included. Belgica Vega [address] [facility] [address] [place] [address] Visit Date: December 23, 2022 Mr.Jim Najma Ashton Date of : 1960 MRN/E #: [id number] History of Present Illness José Manuel Ashton is a 62 year old male. Patient presents to the clinic today for follow-up hypertension, diabetes, hyperlipidemia, lab HPI Pt here with faina Maciel. Patient has history of hypertension and lower extremity edema BP today is. 153/91 BP during last office visit was 142/82 on November 04, 2022.Pt doesn't check BP at home, doesn't want monitor.. Patient is currently on Zestril 10 mg.. Patient is tolerating medication well Patient had lab November 01, 2022, PSA was normal at 0.8, A1c 13.6 and increased, vitamin D 17.6, TSH 1.39, albumin 3.7, alkaline phosphatase 114 AST 13, glucose 259, creatinine 1.65 and increased, sodium 138 and increased, EGFR 47 and decreased, CBC unremarkable. Cholesterol 242, triglyceride 320, HDL 49 LDL 129. LDL: HDL ratio 2.63 Patient does have history of diabetes and noncompliance with diabetic medications. Patient does have history of DKA from medication noncompliance. Patient sees endocrinology. Patient does not check his blood sugar at home..Patient's A1c was 8.9 on June 29, 2022..Patient is being prescribed Lantus 26 units, Trulicity 4.5 milligrams weekly, takes on Monday., Actos 45 mg with lunch. Patient indicated previously in the past that he takes his shot once in a while sometimes skip it.States sometimes takes trulicity.Patient to see new superintendent meters in [place] March 21, 2023. Pt indicates Janie Pickett in [place], he doesn't want to go to stow. Pt indicates is more worried about pain in groin than his DM. States cant deal with it. Pt had MRI on his back and hip. Pt indicates has left leg leg pain and back pain . Pt indicates smoking too much marijuana to deal with pain. Janell indicates went to ortho for all the options, told if done anytime of hip surgery could have worse pain. Feels due to nervous system, doesn't know, no answers. Pt to see neuro 01/04/23. Per chart review patient to see [place] [facility] December 29, 2022 Patient has history of hyperlipidemia. Cholesterol was 296 LDL 1 78 during March 2022. Patient admitted previously that he was not taking Lipitor 40 mg and never picked up his prescription for Crestor.Pt indicates sometimes takes crestor 10 mg, sometimes he doesn't. States when takes it it doesn't do anything for his pain. Pt informed it doesn't work on pain. Will take it 1-3 times per week. Knows got to get on it. Patient has history of hyponatremia. Sodium was 134 during July 2021 Patient has history of elevated alkaline phosphatase it was 143 during July 2021 Patient does have history of vitamin D deficiency. Patient was prescribed high- dose vitamin D 2022. Pt is eating yoghurt now per Janell. Patient's last recorded BMI was 36.45 Patient has history of precordial pain, OTT, hypertension. Patient saw paralegal specialist October 13, 2022..Patient had stress test patient to see cardiology January 31, 2023 December 01, 2022:CONCLUSIONS: 1. SPECT Perfusion Study: Normal. 2. There is no scintigraphic evidence for inducible ischemia. 3. No evidence of scarred myocardium. 4. Left ventricle is normal in size. The left ventricle systolic function is normal. 5. Right ventricle is normal in size. The right ventricle systolic function is normal. 6. This is a low risk scan. Patient had echo December 01, 2022: MITRAL VALVE There is moderate mitral annular calcification observed posterior. There is trace mitral valve regurgitation. The pressure half time is 30 msec. The peak mitral E/A ratio is 0.57. The average mitral E/e' ratio is 15.8. The mitral flow deceleration time is 103 msec. TRICUSPID VALVE The tricuspid valve leaflets are structurally normal. There is trace tricuspid valve regurgitation. AORTIC VALVE There is no aortic valve regurgitation. Tricuspid aortic valve. There is mild calcification. The peak gradient is 4 mmHg (peak velocity = 104.0 cm/s). The mean gradient is 2 mmHg. The LVOT mean velocity is 55.2 cm/s. The LVOT diameter is 2.2 cm. The aortic VTI is 19.2 cm. The mean velocity in the aortic valve is 71.0 cm/s. The dimensionless valve index is 0.90. AV area is 3.43 cm (1.43 cm /m ) by continuity, VTI. The LVOT stroke volume index is 28 ml/m . PULMONIC VALVE The pulmonic valve cusps are structurally normal. There is no pulmonic valve regurgitation. Impression CONCLUSIONS: - Technically difficult exam due to body habitus. - Exam indication: Shortness of Breath - The left ventricle is normal in size. There is mild left ventricular hypertrophy. Left ventricular systolic function is normal. EF = 56 5% (2D biplane) Definity contrast used for endocardial border detection. Indeterminate left ventricular diastolic dysfunction. - The right ventricle is normal in size. Right ventricular systolic function is normal. - The patient has not had a prior CC echocardiographic exam for comparison. Patient does have history of CKD stage III A.. Thought to be due to uncontrolled DM, hypertension and BPH. Patient does see nephrology Patient does have history of BPH, hematuria and nocturia. Patient sees urology. Patient last saw urology November 02, 2022. Per note patient back on Flomax and started Proscar last, said things slightlybetter less nocturia. No hematuria. 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 Patient also has history of invasive adenocarcinoma of the rectum.Patient is status post rectal surgery November 24, 2020. Patient does see general surgeon and oncologist. Patient is being prescribed Protonix 40 mg as well as Zofran 4 mg Patient has history of lumbar back pain with radiculopathy, chronic left hip pain, spinal stenosis of lumbar region with intermittent claudication, chronic low back pain with left-sided sciatica. Patient saw orthopedics September 02, 2022 he ordered MRI of lumbar spine, referred him to spine and pain [place].. Patient seeing pain management patient to see spine medicine January 04, 2023 patient is being prescribed Roxicodone Flexeril and Lidoderm. Per Janell. Dr. Lake in orth was rxing his oxycodone, and flexercil. Pt had MRI lumbar spine 09/15/22:09/15/2022 4:43 PM - Radiology, [place] In Impression IMPRESSION: 1. Multiple level lower lumbar degenerative disc disease. Multilevel facet joint arthrosis. 2. Multilevel central canal stenosis, most pronounced the L3-L4 level. 3. L3-L4 right intraforaminal disc protrusion with possible mass effect on exiting right L3 nerve root. Correlate clinically. 4. Multilevel degenerative neural foraminal narrowing as detailed above. Anatomic Lumbar Variant: None. L4-5 is considered the level of the iliac crest and assume there are 5 lumbar-type vertebrae. Pt had MRI pelvis 08/11/21:Results MRI PELVIS WO/W IVCON (Acc#[id number]) (Order [id number]) Patient Info Patient Name Sex José Manuel Holm ([id number]) Male 1960 08/11/2021 5:06 PM - Radiology, [place] In Impression IMPRESSION: Suggestion of postoperative changes in the mid rectal wall. No tumor was identified on the preoperative exam, no suspicious lesion on this exam. No pelvic lymphadenopathy. Pt had pelvic xr 07/01/22: Results XR PELVIS 1V AP (Order [id number]) Patient Info Patient Name Sex José Manuel Holm ([id number]) Male 1960 07/01/2022 1:45 PM - Binh Lake DO Results-Findings AP pelvis x-ray taken. No major degenerative change or obvious pelvic dysplasia but poor image quality secondary to motion and habitus. Per [place] report was rx neurontin in past by Davida Montes.. Patient did see pain management physician in the past. Patient indicates he cannot recall that doctor. Patient indicates she has been to so many doctors Per Janell oncologist Dr. Mendoza. Dr. Ahmadi did colonoscopy 10/24/22. Unable to find . Per Janell he had 4 polyps, they were removed and benign. Pt had path report 10/24/22:1 Result Note 1 Follow-up Encounter Component FINAL DIAGNOSIS A. Cecum, biopsy: - Tubular adenoma. B. Ascending colon, biopsy: - Tubular adenoma. C. Descending colon, biopsy: - Tubular adenoma. D. Sigmoid colon, biopsy: - Tubular adenoma. E. Rectum, biopsy: - No pathologic abnormalities. Gross Description Pt indicates still has pain in rectal area. Has pain in all directions. Pt last saw Dr. Mendoza 06/01/22. Per note , was seen by Dr. ePrea in past, lost to fu. Referred to ortho. Patient does have history of chronic left-sided groin and hip pain. Patient is status post hip injection August 30, 2022 Patient did have MRI arthrogram September 01, 2022Impression IMPRESSION: 1. No evidence of a left acetabular labral tear. 2. No evidence of tendon tear or tendinosis. 3. Mild osteoarthritis of both hips with interval development of subchondral cystic change at the anterior superior acetabulum on both sides. No fracture, stress reaction or AVN. 4. Enlarged heterogeneous prostate gland. 5. Edema within the right lower posterior paraspinal musculature which may represent strain or possibly myositis. 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 Ahmadi REMV CATARACT EXTRACAP,INSERT LENS Left 08/18/2022 REMV CATARACT EXTRACAP,INSERT LENS Right 09/08/2022 Social History Tobacco Use Smoking status: Former Packs/day: 1.00 Years: 37.00 Additional pack years: 0.00 Total pack years: 37.00 Types: Cigarettes Quit date: 04/03/2010 Years since quittin.7 Smokeless tobacco: Never Tobacco comments: Smokes [place] Vaping Use Vaping Use: Never used Substance Use Topics Alcohol use: Not Currently Drug use: Yes Types: Marijuana Comment: daily ALLERGIES Allergen Reactions Penicillins Unknown Pt states he thinks he had a reaction as a child Family History Problem Relation Age of Onset other (Heart stroke) Mother other (Glaucoma lung cancer) Father Leukemia Sister Glaucoma Sister Glaucoma Brother Current Outpatient Medications Medication Sig Dispense Refill lisinopril (ZESTRIL) 10 mg tablet Take 1 tablet by mouth once daily. 90 tablet 0 dulaglutide (TRULICITY) 4.5 mg/0.5 mL pen injector Inject 4.5 mg subcutaneously one time a week. 12Each 0 insulin glargine 100 unit/mL (3 mL) Inject 26 Units subcutaneously daily at bedtime. 6 Each 1 oxyCODONE IR (ROXICODONE) 10 mg tab Take by mouth once daily. furosemide (LASIX) 20 mg tablet Take 1 tablet by mouth once daily. 90 tablet 1 cyclobenzaprine (FLEXERIL) 10 mg tablet Take 1 tablet by mouth three times daily as needed for muscle spasm. 15 tablet 0 acetaminophen (TYLENOL) 500 mg tablet Take 2 tablets by mouth every 8 hours. 80 tablet 0 Sennosides (SENNA) 8.6 mg cap Take 1 capsule by mouth once daily. 30 capsule 0 lidocaine (LIDODERM) 5 % Apply 1 Patch as directed once daily. to affected area. Remove patch after12 hours. 15 Patch 0 Blood-Glucose Meter monitoring kit For monitoring sugars 3x/day (patient on insulin) 1 Each 1 Lancets lancets Recommend check blood sugar once daily, rotate times. Sometimes check in the morning sometimes 2 hours after meals, sometimes at bedtime. Please bring in blood sugar log and have available for review. 100 Each 11 alcohol swabs (ALCOHOL PREP PADS) Apply 1 application to affected area as directed. Recommend checkblood sugar once daily, rotate times. Sometimes check in the morning sometimes 2 hours after meals,sometimes at bedtime. Please bring in blood sugar log and have available for review. 100 Each 3 pioglitazone (ACTOS) 45 mg tablet Take 1 tablet by mouth once daily. 90 tablet 3 tamsulosin (FLOMAX) 0.4 mg Take 1 capsule by mouth once daily. 90 capsule 0 ondansetron (ZOFRAN) 4 mg tablet Take by mouth every 8 hours as needed for nausea/vomiting. Insulin [place], Disposable, (COMFORT EZ PEN NEEDLES) 29 gauge x 1/2" 1 Each once daily. 100 Each 3 blood sugar diagnostic (BLOOD GLUCOSE TEST) test strip 3x/day 100 Strip 11 cholecalciferol, Vitamin D3, (VITAMIN D3) 1,250 mcg (50,000 unit) cap capsule Take 1 capsule by mouth one time a week. 12 capsule 0 lisinopril (ZESTRIL) 5 mg tablet Take 1 tablet by mouth once daily. 30 tablet 1 rosuvastatin (CRESTOR) 10 mg tablet Take 1 tablet by mouth daily at bedtime. [address] (PROTONIX) 40 mg tablet Take 1 tablet by mouth DAILY (6 AM). 30 tablet 2 Current Facility-Administered Medications Medication Dose Route Frequency Provider Last Rate Last Admin sodium chloride 0.9 % (flush) 10 mL (BD POSIFLUSH) 10 mL INTRAVENOUS DIRECTED PRN Sukumar Toney MD Review of Systems Constitutional: Positive for malaise/fatigue. Negative for chills, diaphoresis and fever. Respiratory: Positive for shortness of breath. Cardiovascular: Negative for chest pain and leg swelling. Gastrointestinal: Negative for abdominal pain, nausea and vomiting. Genitourinary: Negative for dysuria. Musculoskeletal: Positive for back pain, joint pain and myalgias. Skin: Negative for rash. Neurological: Negative for dizziness and headaches. Endo/Heme/Allergies: Negative for environmental allergies. Psychiatric/Behavioral: Positive for depression. The patient is nervous/anxious. BP 153/91 Pulse 91 Ht 5' 10" (1.78m) Wt 253 lb (114.8kg) BMI 36.30 kg/(m^2). Physical Exam HENT: Head: Normocephalic and atraumatic. Right Ear: Tympanic membrane, ear canal and external ear normal. Left Ear: Tympanic membrane, ear canal and external ear normal. Nose: Nose normal. Mouth/Throat: Pharynx: Uvula midline. Eyes: General: Lids are normal. Conjunctiva/sclera: Conjunctivae normal. Pupils: Pupils are equal, round, and reactive to light. Neck: Trachea: Trachea normal. Cardiovascular: Rate and Rhythm: Normal rate and regular rhythm. Pulses: Normal pulses. Heart sounds: Normal heart sounds. Pulmonary: Effort: Pulmonary effort is normal. Breath sounds: Normal breath sounds. Abdominal: General: Bowel sounds are normal. Palpations: Abdomen is soft. Tenderness: There is no abdominal tenderness. There is no guarding. Musculoskeletal: Cervical back: Neck supple. Lymphadenopathy: Cervical: No cervical adenopathy. Skin: General: Skin is warm and dry. Neurological: Mental Status: He is alert and oriented to person, place, and time. Psychiatric: Mood and Affect: Affect normal. No visits with results within 1 Day(s) from this visit. Latest known visit with results is: Results Only on 12/01/2022 Component Date Value Ref Range Status LV Ejection Fraction 12/01/2022 56 % Final Comment: (2D biplane) EF > 52 An LV Ejection Fraction of > 50% is normal Procedure Notes: New medication(s) prescribed today: Yes: . Discussed new medication dosage, usage, goals of therapy, and side effects. Patient has been apprised of any potential drug interactions to be aware of. Patient expresses understanding. Counseling completed in adopting health behaviors such as avoiding excessive alcohol use, avoid tobacco use, improve nutrition, and engage in physical activities. Copy of written care plan, clinical summary, treatment plan, new medications, goals, and self management requirements were given to patient. Assessment/Plan: ASSESSMENT/PLAN: 1. Hypertension, essential - ICD9: 401.9, ICD10: I10 (primary diagnosis) - Uncontrolled - Factors affecting control: suspected sleep apnea - Increase lisinopril - Recommend home blood pressure monitoring, to bring results to next visit - Encouraged sodium restriction, DASH or Mediterranean diet - Recommend regular aerobic exercise - LISINOPRIL 5 MG TABLET 2. Bilateral leg edema - ICD9: 782.3, ICD10: R60.0 Controlled 3. Diabetes mellitus due to underlying condition, uncontrolled, with hyperglycemia (HCC) - ICD9: 249.81, 790.29, ICD10: E08.65 Uncontrolled Encourage compliance with medication Patient to follow-up with endocrinology March 2023 4. Mixed hyperlipidemia - ICD9: 272.2, ICD10: E78.2 - Uncontrolled - Continue current medications - Counseled on healthy diet and regular exercise - ROSUVASTATIN 10 MG TABLET Encourage compliance with medication 5. Vitamin D deficiency - ICD9: 268.9, ICD10: E55.9 - CHOLECALCIFEROL (VITAMIN D3) 1,250 MCG (50,000 UNIT) CAPSULE 6. H/O medication noncompliance - ICD9: V15.81, ICD10: Z91.148 Patient is noncompliant on multiple medications 7. Hyponatremia - ICD9: 276.1, ICD10: E87.1 Improved 8. Elevated alkaline phosphatase level - ICD9: 790.5, ICD10: R74.8 Stable 9. Stage 3 chronic kidney disease, unspecified whether stage 3a or 3b CKD (HCC) - ICD9: 585.3, ICD10: N18.30 Follow-up with nephrology 10. BPH associated with nocturia - ICD9: 600.01, 788.43, ICD10: N40.1, R35.1 Patient to follow-up with urology May 2023 11. Mild mitral regurgitation by prior echocardiogram - ICD9: 424.0, ICD10: I34.0 Briefly discussed in layman's terms 12. Mild tricuspid regurgitation by prior echocardiogram - ICD9: 397.0, ICD10: I07.1 Briefly discussed in layman's terms 13. Malignant neoplasm of rectum (HCC) - ICD9: 154.1, ICD10: C20 Follow-up with oncology 14. Chronic pain syndrome - ICD9: 338.4, ICD10: G89.4 - CONSULT TO PAIN MGT Briefly discussed in layman's terms that patient may feel pain in left hip and groin area however left hip imaging unremarkable, suspect pain is likely combination chronic low back pain intersecting with rectal pain 15. Cancer associated pain - ICD9: 338.3, ICD10: G89.3 Did recommend patient follow-up with oncology BROOKS - CONSULT TO PAIN MGT 16. Marijuana abuse - ICD9: 305.20, ICD10: F12.10 Increased per patient 17. Primary osteoarthritis of both hips - ICD9: 715.15, ICD10: M16.0 Mild per recent imaging 18. Rectal pain, chronic - ICD9: 569.42, 338.29, ICD10: K62.89, G89.29 Patient admits rectal pain despite colonoscopy being back in October 2022 19. Chronic bilateral low back pain with left-sided sciatica - ICD9: 724.2, 724.3, 338.29, ICD10: M54.42, G89.29 Chronic low back pain Patient and his sister informed that I do not manage chronic pain - CONSULT TO PAIN MGT 20. Spinal stenosis of lumbar region with neurogenic claudication - ICD9: 724.03, ICD10: M48.062 - CONSULT TO PAIN MGT 21. Chronic left hip pain - ICD9: 719.45, 338.29, ICD10: M25.552, G89.29 22. Lumbar radiculopathy - ICD9: 724.4, ICD10: M54.16 Chronic low back pain - CONSULT TO PAIN MGT Belgica Vega DO Return in about 1 month (around 01/22/2023) for Hypertension, Diabetes, Visit for re-check. If symptoms persist, worsen, or no improvement, patient is to call 911 and/or go to the nearest ED. documented [facility] History of Present illness Narrative* Dannie Kincaid, Sediment Remediation Consultant - 12/01/2022 10:00 AM EDT Lexiscan nuclear stress test completed. Patient verbalized understanding of test and pain scale. IVstarted by nursing staff prior to testing and removed by nursing staff at test end. documented in this encounterVan [facility]08-31-[facility]23 Miscellaneous Notes* Addendum Note - Celena Rendon RN - 12/01/2022 9:00 AM EDTEncounter addended by: Celena Rendon, RN on: 12/01/2022 11:21 AM Actions taken: Flowsheet accepted, MAR administration accepted documented in this encounterVan [facility]08-24-[facility]23 History of Present illness Narrative* Jen Bergman RN - 11/24/2022 3:32 PM EDT PRIMARY CARE COORDINATION FOLLOW-UP NOTE Patient identified by name and date of . NO Summary: PCC attempted routine f/u call to pt - not able to leave a msg. Goals: Active Goals - Current status as of 11/24/2022 at 3:34 PM Most Recent Address all appropriate HM and disease care gaps No change (11/01/2022) Annual BMP On track (09/29/2022) Last 11/01/22 Annual foot exam On track (09/29/2022) Annual microalbumin On track (09/29/2022) Annual retina exam On track (09/29/2022) Blood Pressure < 130/80 142/82 (11/04/2022) Confirm medication adherence of all prescribed medications and uses them correctly No change (03/24/2021) HBA1C drawn quarterly On track (11/24/2022) Hemoglobin A1C < 7 13.6 (11/01/2022) Improve your coping skills No change (10/28/2020) LDL at or below 100 mg/dL or on a high statin No change (11/24/2022) Last 11/01/22 LDL = 129 (Down) Crestor 10mg Reduce fat intake On track (05/25/2021) Reduce sugar intake On track (05/25/2021) Tobacco cessation Understands and follows a low salt diet No change (09/23/2020) Understands and follows DASH diet Weight mgmt/activity No change (09/23/2020) 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 Signature Jen Bergman RN November 24, 2022 documented in this encounterVan [facility]08-16-2023 Miscellaneous Notes* Telephone Encounter - Liyah Lora LPN - 11/16/2022 8:55 AM EDT Patient's sister, Janell, informed regarding message below and was very upset that his PCP was not able to reorder medication as she was not the prescribing doctor. Tried to explain to sister that hisPCP would need to see the patient to see if a medication is needed to no avail. Liyah Lora LPN * Telephone Encounter - Dayanara Melara - 11/15/2022 9:15 AM EDT Left message for patient to give the office a call back. .Dayanara Melara * Telephone Encounter - Belgica Vega DO - 11/14/2022 4:49 PM EDT Reviewed chart patient was prescribed Flexeril during September 16, 2022 by Porsche Jackson CNP. Please have patient follow-up with prescriber Thank you, Belgica Vega D.O. * Telephone Encounter - Bunny Daniels - 11/14/2022 2:11 PM EDT ----- Message from Wilfredo Cartwright sent at 11/14/2022 1:56 PM EDT ----- Reason for the call/escalation: Patient is requesting a refill of flexorel, but was told by pharmacy that is cancelled. Please reach out to patient with any information. Was Patient Referred to 911/Seek Emergency Treatment (Y/N): N Did Patient Agree (Y/N): N/A Was An Attempt Made To Transfer The Patient To The Office (Y/N): N Were You Able To Reach Someone At The Office (Y/N): N/A If Yes - Patient Was Transferred To (Caregivers Name): N/A If No - Which [facility] AC Leadership Scrum Project Manager Did You Speak With Regarding This Patient: N/A Was an appointment scheduled (Y/N): N Reason patient was requesting visit (RFV/signs and symptoms/diagnosis) : Medication Refill Request Person calling if other than patient: Self Return call to if other than patient: Self Best contact number: [phone] Thank you, Wilfredo Cartwright November 14, 2022 1:56 PM documented in this encounterVan [facility]08-10-[facility]23 Miscellaneous Notes* Telephone Encounter - Candice Braun MD - 11/10/2022 7:00 AM EDT Reviewed all notes and labs. 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 He is already an established patient in [facility] practice. Of note, he was a no-show in February 2022. Plan: Please refer patient back to [place] office to his original provider since he is not a new patient. * Telephone Encounter - Alize Covarrubias MA - 11/09/2022 2:10 PM EDT New Patient Referral Referring Provider: Dr Belgica Vega Reason for Referral:Diabetes mellitus due to underlying condition, Uncontrolled with hyperglycemia(E08.65) H/O medication noncompliance (Z91.148) Date Referral Received: 11/09/2022 Referral information placed on your desk Alize Covarrubias MA November 09, 2022 2:16 PM documented in this encounterVan [facility]08-07-2023 Miscellaneous Notes* Telephone Encounter - Griselda Mayfield - 11/07/2022 8:01 AM EDT Consult to Neurology Confirmation number: [id number] documented in this encounterVan [facility]08-04-2023 Miscellaneous Notes* Telephone Encounter - JanesKenya - 11/04/2022 4:15 PM EDT Confirmation number: [id number] Consult to Dermatology documented in this encounterVan [facility]08-04-2023 Miscellaneous Notes* Telephone Encounter - JanesKenya - 11/04/2022 3:20 PM EDT Confirmation number: [id number] Consult to Endocrinology documented in this encounterVan [facility]08-04-2023 History of Present illness Narrative* Belgica Vega, - 11/04/2022 3:04 PM EDT Images from the original note were not included. Belgica Vega [address] [address] Visit Date: November 04, 2022 Mr.Jim Najma Ashton Date of : 1960 MRN/E #: [id number] History of Present Illness José Manuel Ashton is a 61 year old male. Patient presents to the clinic today for follow-up abscess, DM, general surgery visit, lab. HPI Pt here with faina Maciel. Patient was diagnosed with abscess on right side during last office visit. Patient indicated lesionhad been there for 4 days previously. Patient was also diagnosed with hidradenitis suppurativa. Patient was prescribed doxycycline. Warm compress was recommended patient was referred to dermatology. Pt indicates better. Pt denies any pain, no FC. Pt didn't want to see derm in [facility]. Wasn't referred to [place]. Patient does have history of diabetes and noncompliance with diabetic medications. Patient does have history of DKA from medication noncompliance. Patient sees endocrinology. Patient does not check his blood sugar at home.. Patient's A1c was 9.7 during May 2022.Patient is being prescribed Lantus 26 units, Trulicity 4.5 milligrams weekly, takes on Monday., Actos 45 mg with lunch. Pt indicatesdoing better with taking meds, pills. Sometimes skips his shot. Last aic 13.[address] Janell says Dr. Toney worried about that. Pt indicates takes shot once in a while. Tried to see Dr. Baig, doesn't want to go to [place]. Patient has history of rectal cancer. Patient is status post colonoscopy October 24, [address] Ahmadi.Number of precancerous polyps were found on this examination and we shouldrepeat the colonoscopy in 1 year. Artem Ahmadi MD October 28, 2022 10:05 AM Patient has history of precordial pain, OTT, hypertension. Patient saw paralegal specialist October 13, 2022. Lexiscan nuclear stress test has been ordered. Per note patient was asked to get referral for superintendent meters and dietitian to aggressively get his diabetes under control since that remains biggest risk for factor for CAD.. Echo was ordered. Per cardiology LDL goal is 70. Patient has history of nocturia, patient saw urology November 02, 2022. Diagnosed with microhematuria and LUTS. Patient back on Flomax and started Proscar. Patient to follow-up with urology May 2023 Pt desires Neurology referral per Janell , it cant wait. Pt had MRI 09/15/22:Impression IMPRESSION: 1. Multiple level lower lumbar degenerative disc disease. Multilevel facet joint arthrosis. 2. Multilevel central canal stenosis, most pronounced the L3-L4 level. 3. L3-L4 right intraforaminal disc protrusion with possible mass effect on exiting right L3 nerve root. Correlate clinically. 4. Multilevel degenerative neural foraminal narrowing as detailed above. Anatomic Lumbar Variant: None. L4-5 is considered the level of the iliac crest and assume there are 5 lumbar-type vertebrae. Ortho told him its not his hip or back. Janell said Dr. Lake recommended Dr. Rider, who is a back surgeon. Dr. Rider recommended Dr. Godinez. Dr Godinez said it wasn't his hip. Told needs to see neurology. Told like a pinched nerve. Saw Dr. Godinez 10/10/22. Dx. Pain in left hip. Not convinced pain coming from hip. Declined injectionof hip. Note indicated surgery of questionable benefit. . Patient does have history of multiple medical problems including hypertension, hyperlipidemia, CKD and MEKHI. 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 Ahmadi REMV CATARACT EXTRACAP,INSERT LENS Left 08/18/2022 REMV CATARACT EXTRACAP,INSERT LENS Right 09/08/2022 Social History Tobacco Use Smoking status: Former Packs/day: 1.00 Years: 37.00 Total pack years: 37.00 Types: Cigarettes Quit date: 04/03/2010 Years since quittin.5 Smokeless tobacco: Never Tobacco comments: Smokes [place] Vaping Use Vaping Use: Never used Substance Use Topics Alcohol use: Not Currently Drug use: Yes Types: Marijuana Comment: daily ALLERGIES Allergen Reactions Penicillins Unknown Pt states he thinks he had a reaction as a child Family History Problem Relation Age of Onset other (Heart stroke) Mother other (Glaucoma lung cancer) Father Leukemia Sister Glaucoma Sister Glaucoma Brother Current Outpatient Medications Medication Sig Dispense Refill lisinopril (ZESTRIL) 10 mg tablet Take 1 tablet by mouth once daily. 90 tablet 0 dulaglutide (TRULICITY) 4.5 mg/0.5 mL pen injector Inject 4.5 mg subcutaneously one time a week. 12Each 0 insulin glargine 100 unit/mL (3 mL) Inject 26 Units subcutaneously daily at bedtime. 6 Each 1 rosuvastatin (CRESTOR) 10 mg tablet Take 1 tablet by mouth daily at bedtime. 30 tablet 1 oxyCODONE IR (ROXICODONE) 10 mg tab Take by mouth once daily. furosemide (LASIX) 20 mg tablet Take 1 tablet by mouth once daily. 90 tablet 1 cyclobenzaprine (FLEXERIL) 10 mg tablet Take 1 tablet by mouth three times daily as needed for muscle spasm. 15 tablet 0 acetaminophen (TYLENOL) 500 mg tablet Take 2 tablets by mouth every 8 hours. (Patient not taking: Reported on 10/13/2022) 80 tablet 0 Sennosides (SENNA) 8.6 mg cap Take 1 capsule by mouth once daily. 30 capsule 0 lidocaine (LIDODERM) 5 % Apply 1 Patch as directed once daily. to affected area. Remove patch after12 hours. 15 Patch 0 cholecalciferol, Vitamin D3, (VITAMIN D3) 1,250 mcg (50,000 unit) cap capsule Take 1 capsule by mouth one time a week. 12 capsule 0 Blood-Glucose Meter monitoring kit For monitoring sugars 3x/day (patient on insulin) 1 Each 1 Lancets lancets Recommend check blood sugar once daily, rotate times. Sometimes check in the morning sometimes 2 hours after meals, sometimes at bedtime. Please bring in blood sugar log and have available for review. 100 Each 11 alcohol swabs (ALCOHOL PREP PADS) Apply 1 application to affected area as directed. Recommend checkblood sugar once daily, rotate times. Sometimes check in the morning sometimes 2 hours after meals,sometimes at bedtime. Please bring in blood sugar log and have available for review. 100 Each 3 pioglitazone (ACTOS) 45 mg tablet Take 1 tablet by mouth once daily. 90 tablet 3 tamsulosin (FLOMAX) 0.4 mg Take 1 capsule by mouth once daily. 90 capsule 0 ondansetron (ZOFRAN) 4 mg tablet Take by mouth every 8 hours as needed for nausea/vomiting. (Patient not taking: Reported on 10/13/2022) pantoprazole DR (PROTONIX) 40 mg tablet Take 1 tablet by mouth DAILY (6 AM). 30 tablet 2 Insulin [place], Disposable, (COMFORT EZ PEN NEEDLES) 29 gauge x 1/2" 1 Each once daily. 100 Each 3 blood sugar diagnostic (BLOOD GLUCOSE TEST) test strip 3x/day 100 Strip 11 Current Facility-Administered Medications Medication Dose Route Frequency Provider Last Rate Last Admin perflutren lipid microspheres 1.3 mL in NaCl (PF) 0.9% 10 mL injection (DEFINITY) INTRAVENOUS DIRECTED PRN Sukumar Toney MD sodium chloride 0.9 % (flush) 10 mL (BD POSIFLUSH) 10 mL INTRAVENOUS DIRECTED PRN Sukumar Toney MD Review of Systems Constitutional: Negative for chills, diaphoresis, fever and malaise/fatigue. Respiratory: Negative for shortness of breath. Cardiovascular: Negative for chest pain and leg swelling. Gastrointestinal: Negative for abdominal pain, nausea and vomiting. Genitourinary: Negative for dysuria. Musculoskeletal: Positive for back pain, joint pain and myalgias. Skin: Positive for rash. Neurological: Negative for dizziness and headaches. Endo/Heme/Allergies: Negative for environmental allergies. Psychiatric/Behavioral: Positive for depression. The patient is nervous/anxious. BP 142/82 Pulse 99 Ht 5' 10" (1.78m) Wt 259 lb (117.5kg) BMI 37.16 kg/(m^2). Physical Exam HENT: Head: Normocephalic and atraumatic. Right Ear: Tympanic membrane, ear canal and external ear normal. Left Ear: Tympanic membrane, ear canal and external ear normal. Nose: Nose normal. Mouth/Throat: Pharynx: Uvula midline. Eyes: General: Lids are normal. Conjunctiva/sclera: Conjunctivae normal. Pupils: Pupils are equal, round, and reactive to light. Neck: Trachea: Trachea normal. Cardiovascular: Rate and Rhythm: Normal rate and regular rhythm. Pulses: Normal pulses. Heart sounds: Normal heart sounds. Pulmonary: Effort: Pulmonary effort is normal. Breath sounds: Normal breath sounds. Abdominal: General: Bowel sounds are normal. Palpations: Abdomen is soft. Tenderness: There is no abdominal tenderness. There is no guarding. Musculoskeletal: Cervical back: Neck supple. Lymphadenopathy: Cervical: No cervical adenopathy. Skin: General: Skin is warm and dry. Comments: Right side abdomen patient has red papule, soft nontender not fluctuant Neurological: Mental Status: He is alert and oriented to person, place, and time. Psychiatric: Mood and Affect: Affect normal. No visits with results within 1 Day(s) from this visit. Latest known visit with results is: Appointment on 11/01/2022 Component Date Value Ref Range Status WBC 11/01/2022 6.63 3.70 - 11.00 k/uL Final RBC 11/01/2022 5.05 4.20 - 6.00 m/uL Final Hemoglobin 11/01/2022 14.3 13.0 - 17.0 g/dL Final Hematocrit 11/01/2022 44.3 39.0 - 51.0 % Final MCV 11/01/2022 87.7 80.0 - 100.0 fL Final MCH 11/01/2022 28.3 26.0 - 34.0 pg Final MCHC 11/01/2022 32.3 30.5 - 36.0 g/dL Final RDW-CV 11/01/2022 13.0 11.5 - 15.0 % Final Platelet Count 11/01/2022 330 150 - 400 k/uL Final MPV 11/01/2022 9.8 9.0 - 12.7 fL Final Neutrophils % 11/01/2022 66.8 % Final Abs Neut 11/01/2022 4.43 1.45 - 7.50 k/uL Final Lymphocytes % 11/01/2022 22.6 % Final Abs Lymph 11/01/2022 1.50 1.00 - 4.00 k/uL Final Monocytes % 11/01/2022 8.1 % Final Abs [place] 11/01/2022 0.54 <0.87 k/uL Final Eosinophils % 11/01/2022 1.1 % Final Abs Eosin 11/01/2022 0.07 <0.46 k/uL Final Basophils % 11/01/2022 0.5 % Final Abs Baso 11/01/2022 0.03 <0.11 k/uL Final Immature Granulocytes % 11/01/2022 0.9 % Final Abs Immature Gran 11/01/2022 0.06 <0.10 k/uL Final Diff Type 11/01/2022 Auto Final Cholesterol, Total 11/01/2022 242 (H) <200 mg/dL Final <200 mg/dL, Desirable 200-239 mg/dL, Borderline high >239 mg/dL, High Triglyceride 11/01/2022 320 (H) <150 mg/dL Final <150 mg/dL, Normal 150-199 mg/dL, Borderline high 200-499 mg/dL, High >499 mg/dL, Very high HDL Cholesterol 11/01/2022 49 >39 mg/dL Final 40-59 mg/dL, Acceptable >59 mg/dL, High: Negative risk factor for coronary heart disease <40 mg/dL, Low: Positive risk factor for coronary heart disease Non HDL Cholesterol 11/01/2022 193 (H) <130 mg/dL Final <130 mg/dL, Optimal 130-159 mg/dL, Near optimal/above optimal 160-189 mg/dL, Borderline high 190-219 mg/dL, High >219 mg/dL, Very high Secondary prevention optimal non HDL Cholesterol levels are recommended to be <100 mg/dL Fasting Time 11/01/2022 12 hrs Final VLDL Cholesterol 11/01/2022 64 (H) <30 mg/dL Final TC:HDL Ratio 11/01/2022 4.94 <5.10 Final LDL Cholesterol 11/01/2022 129 (H) <100 mg/dL Final <100 mg/dL, Optimal 100-129 mg/dL, Near optimal/above optimal 130-159 mg/dL, Borderline high 160-189 mg/dL, High >189 mg/dL, Very high Secondary prevention optimal LDL Cholesterol levels are recommended to be < 70 mg/dL LDL:HDL Ratio 11/01/2022 2.63 (H) <2.54 Final Reference: 1. National Cholesterol Education Program ATP III Guideline At-A-Glance Quick Desk Reference: National Heart, Lung, and Blood [place]. National Institutes of Health. 2001: NIH Publication No. 01-3305. 2. An International Atherosclerosis Society position paper: global recommendations for the management of dyslipidemia: executive summary, Atherosclerosis. 2014: 232(2):410-413. Protein, Total 11/01/2022 6.5 6.3 - 8.0 g/dL Final Albumin 11/01/2022 3.7 (L) 3.9 - 4.9 g/dL Final Calcium, Total 11/01/2022 9.8 8.5 - 10.2 mg/dL Final Bilirubin, Total 11/01/2022 0.4 0.2 - 1.3 mg/dL Final Alkaline Phosphatase 11/01/2022 114 (H) 38 - 113 U/L Final AST 11/01/2022 13 (L) 14 - 40 U/L Final ALT 11/01/2022 10 10 - 54 U/L Final Glucose 11/01/2022 259 (H) 74 - 99 mg/dL Final The [place] [employer] (ADA) provides guidance for cutoff values for fasting glucose andrandom glucose. The ADA defines fasting as no caloric intake for at least 8 hours. Fasting plasma glucose results between 100 to 125 mg/dL indicate increased risk for diabetes (prediabetes). Fasting plasma glucose results greater than or equal to 126 mg/dL meet the criteria for diagnosis of diabetes. In the absence of unequivocal hyperglycemia, results should be confirmed by repeat testing. In a patient with classic symptoms of hyperglycemia or hyperglycemic crisis, random plasma glucose results greater than or equal to 200 mg/dL meet the criteria for diagnosis of diabetes. Reference: Standards of Medical Care in Diabetes 2016, [place] [employer]. Diabetes Care. 2016.39(Suppl 1). BUN 11/01/2022 22 9 - 24 mg/dL Final Creatinine 11/01/2022 1.65 (H) 0.73 - 1.22 mg/dL Final Sodium 11/01/2022 138 136 - 144 mmol/L Final Potassium 11/01/2022 5.1 3.7 - 5.1 mmol/L Final Chloride 11/01/2022 100 97 - 105 mmol/L Final CO2 11/01/2022 24 22 - 30 mmol/L Final Anion Gap 11/01/2022 14 9 - 18 mmol/L Final Estimated Glomerular Filtration Ra* 11/01/2022 47 (L) >=60 mL/min/1.73m Final Estimated Glomerular Filtration Rate (eGFR) is calculated using the 2020 CKD-EPI creatinine equation. This equation utilizes serum creatinine, sex, and age as parameters. The creatinine assay has traceable calibration to isotope dilution- mass spectrometry. Refer to KDIGO guidelines for clinical interpretation. In patients with unstable renal function, e.g. those with acute kidney injury, the eGFRmay not accurately reflect actual GFR. TSH 11/01/2022 1.390 0.270 - 4.200 mIU/L Final Vitamin D 25 Hydroxy 11/01/2022 17.6 (L) >=30.0 ng/mL Final Classification of 25 OH Vitamin D status: Deficiency: <= 20.0 ng/ml. Insufficiency: 21.0-29.0 ng/ml. Sufficiency: >= 30.0 ng/ml. Hemoglobin A1C 11/01/2022 13.6 (H) 4.3 - 5.6 % Final [place] [employer] guidelines indicate that patients with HgbA1c in the range 5.7-6.4% are at increased risk for development of diabetes, and intervention by lifestyle modification may be beneficial. HgbA1c greater or equal to 6.5% is considered diagnostic of diabetes. Estimated Average Glucose 11/01/2022 344 mg/dL Final eAG: (Estimated average glucose) is a calculated value from HgbA1c and is off premise service representative of the average blood glucose level in the last 2-3 month period. PSA Screening 11/01/2022 0.80 <2.60 ng/mL Final Total PSA test methodology used is the Electrochemiluminescence Immunoassay by [employer]. Total PSA values by differing methodologies cannot be interchanged. Procedure Notes: New medication(s) prescribed today: Yes: . Discussed new medication dosage, usage, goals of therapy, and side effects. Patient has been apprised of any potential drug interactions to be aware of. Patient expresses understanding. Counseling completed in adopting health behaviors such as avoiding excessive alcohol use, avoid tobacco use, improve nutrition, and engage in physical activities. Copy of written care plan, clinical summary, treatment plan, new medications, goals, and self management requirements were given to patient. Assessment/Plan: ASSESSMENT/PLAN: 1. Cutaneous abscess of abdominal wall - ICD9: 682.2, ICD10: L02.211 (primary diagnosis) Resolved 2. Hidradenitis suppurativa - ICD9: 705.83, ICD10: L73.2 - CONSULT TO DERMATOLOGY 3. Malignant neoplasm of rectum (HCC) - ICD9: 154.1, ICD10: C20 Follow-up with Dr. Ahmadi for repeat colonoscopy due October 2023 4. Diabetes mellitus due to underlying condition, uncontrolled, with hyperglycemia (HCC) - ICD9: 249.81, 790.29, ICD10: E08.65 Worsening control - CONSULT TO ENDOCRINOLOGY - CONSULT TO NUTRITION THERAPY - DULAGLUTIDE 4.5 MG/0.5 ML SUBCUTANEOUS PEN INJECTOR - INSULIN GLARGINE (U-100) 100 UNIT/ML (3 ML) SUBCUTANEOUS PEN 5. H/O medication noncompliance - ICD9: V15.81, ICD10: Z91.148 - CONSULT TO ENDOCRINOLOGY - CONSULT TO NUTRITION THERAPY 6. Precordial pain - ICD9: 786.51, ICD10: R07.2 Follow-up with cardiology for stress test and echo 7. OTT (dyspnea on exertion) - ICD9: 786.09, ICD10: R06.09 Follow-up with cardiology for stress test and echo 8. Microhematuria - ICD9: 599.72, ICD10: R31.29 Follow-up with urology 9. Lower urinary tract symptoms (LUTS) - ICD9: 788.99, ICD10: R39.9 Follow-up with urology 10. History of colonic polyps - ICD9: V12.72, ICD10: Z86.010 Follow-up with Dr. Ahmadi for repeat colonoscopy due October 2023 11. Chronic bilateral low back pain with left-sided sciatica - ICD9: 724.2, 724.3, 338.29, ICD10: M54.42, G89.29 Chronic low back pain Follow-up with orthopedics - CONSULT TO NEUROLOGY 12. Spinal stenosis of lumbar region with neurogenic claudication - ICD9: 724.03, ICD10: M48.062 - CONSULT TO NEUROLOGY 13. Chronic left hip pain - ICD9: 719.45, 338.29, ICD10: M25.552, G89.29 Follow-up with orthopedics as needed - CONSULT TO NEUROLOGY Patient declined pain management referral per Dr. Godinez note 14. Lumbar radiculopathy - ICD9: 724.4, ICD10: M54.16 - CONSULT TO NEUROLOGY 15. Mixed hyperlipidemia - ICD9: 272.2, ICD10: E78.2 - Uncontrolled - Increase rosuvastatin (Crestor) - Counseled on healthy diet and regular exercise - ROSUVASTATIN 10 MG TABLET 16. Hypertension, essential - ICD9: 401.9, ICD10: I10 - Improving control - Continue current medications - Recommend home blood pressure monitoring, to bring results to next visit - Encouraged sodium restriction, DASH or Mediterranean diet - Recommend regular aerobic exercise - LISINOPRIL 10 MG TABLET Belgica Vega DO Return in about 1 month (around 12/05/2022) for Medication follow-up, Diabetes, Hypertension, hyperlipidemia. If symptoms persist, worsen, or no improvement, patient is to call 911 and/or go to the nearest ED. documented in this encounterVan [facility] Miscellaneous Notes* Telephone Encounter - Belgica Vega DO - 11/02/2022 7:44 PM EDT Please notify patient received lab, low-fat low-cholesterol diet recommended. Low-carb low concentrated sweets diet recommended, A1c has increased to 13.6 Can discuss results at appointment Thank you, Belgica Vega D.O. documented in this encounterVan [facility]08-[facility] History of Present illness Narrative* Noé Kennedy MD - 11/02/2022 2:44 PM EDT ESTABLISHED PATIENT OFFICE VISIT HISTORY OF PRESENT ILLNESS Patient presents with: Benign Prostatic Hypertrophy Nocturia José Manuel Ashton is a 61 year old male who presents with for follow up regarding New problem- main c/o is chronic left groin and back pain (since a injury 5 yrs ago), has seen Ortho and no answers LAB RESULTS Creatinine Date Value Ref Range Status 11/01/2022 1.65 (H) 0.73 - 1.22 mg/dL Final PSA (ng/mL) Date Value 01/19/2022 0.74 07/05/2021 0.97 04/09/2021 1.90 02/17/2020 0.75 PSA Screening (ng/mL) Date Value 11/01/2022 0.80 Color (no units) Date Value 09/15/2022 Dark Yellow Clarity (no units) Date Value 09/15/2022 Clear Glucose, Urine (no units) Date Value 09/15/2022 2+ Bilirubin, Urine (no units) Date Value 09/15/2022 1+ Ketones, Urine (no units) Date Value 09/15/2022 1+ Specific [place], Ur (no units) Date Value 09/15/2022 1.020 Hemoglobin/Blood,Ur (no units) Date Value 09/15/2022 1+ pH, Urine (no units) Date Value 09/15/2022 5.0 Protein, Urine (no units) Date Value 09/15/2022 3+ Urobilinogen (no units) Date Value 09/15/2022 0.2 EU/dL Nitrites (no units) Date Value 09/15/2022 Negative Leuk Esterase (no units) Date Value 09/15/2022 Negative ALLERGIES Allergen Reactions Penicillins Unknown Pt states he thinks he had a reaction as a child MEDICATIONS: oxyCODONE IR (ROXICODONE) 10 mg tab^Take by mouth once daily.^Disp: ^Rfl: furosemide (LASIX) 20 mg tablet^Take 1 tablet by mouth once daily.^Disp: 90 tablet^Rfl: 1 lisinopril (ZESTRIL) 10 mg tablet^Take 1 tablet by mouth once daily.^Disp: 90 tablet^Rfl: 0 cyclobenzaprine (FLEXERIL) 10 mg tablet^Take 1 tablet by mouth three times daily as needed for muscle spasm.^Disp: 15 tablet^Rfl: 0 Sennosides (SENNA) 8.6 mg cap^Take 1 capsule by mouth once daily.^Disp: 30 capsule^Rfl: 0 lidocaine (LIDODERM) 5 %^Apply 1 Patch as directed once daily. to affected area. Remove patch after12 hours.^Disp: 15 Patch^Rfl: 0 rosuvastatin (CRESTOR) 5 mg tablet^TAKE 1 TABLET BY MOUTH DAILY AT BEDTIME^Disp: 90 tablet^Rfl: 0 cholecalciferol, Vitamin D3, (VITAMIN D3) 1,250 mcg (50,000 unit) cap capsule^Take 1 capsule by mouth one time a week.^Disp: 12 capsule^Rfl: 0 dulaglutide (TRULICITY) 4.5 mg/0.5 mL pen injector^Inject 4.5 mg subcutaneously one time a week.^Disp: 12 Each^Rfl: 0 Blood-Glucose Meter monitoring kit^For monitoring sugars 3x/day (patient on insulin)^Disp: 1 Each^Rfl: 1 Lancets lancets^Recommend check blood sugar once daily, rotate times. Sometimes check in the morning sometimes 2 hours after meals, sometimes at bedtime. Please bring in blood sugar log and have available for review.^Disp: 100 Each^Rfl: 11 alcohol swabs (ALCOHOL PREP PADS)^Apply 1 application to affected area as directed. Recommend checkblood sugar once daily, rotate times. Sometimes check in the morning sometimes 2 hours after meals,sometimes at bedtime. Please bring in blood sugar log and have available for review.^Disp: 100 Each^Rfl: 3 insulin glargine (LANTUS SOLOSTAR, BASAGLAR KWIKPEN) 100 unit/mL (3 mL)^Inject 26 Units subcutaneously daily at bedtime.^Disp: 6 Each^Rfl: 1 pioglitazone (ACTOS) 45 mg tablet^Take 1 tablet by mouth once daily.^Disp: 90 tablet^Rfl: 3 tamsulosin (FLOMAX) 0.4 mg^Take 1 capsule by mouth once daily.^Disp: 90 capsule^Rfl: 0 Insulin [place], Disposable, (COMFORT EZ PEN NEEDLES) 29 gauge x 1/2"^1 Each once daily.^Disp: 100 Each^Rfl: 3 blood sugar diagnostic (BLOOD GLUCOSE TEST) test strip^3x/day^Disp: 100 Strip^Rfl: 11 acetaminophen (TYLENOL) 500 mg tablet^Take 2 tablets by mouth every 8 hours.^Disp: 80 tablet^Rfl: 0(Patient not taking: Reported on 10/13/2022) ondansetron (ZOFRAN) 4 mg tablet^Take by mouth every 8 hours as needed for nausea/vomiting.^Disp: ^Rfl: (Patient not taking: Reported on 10/13/2022) pantoprazole DR (PROTONIX) 40 mg tablet^Take 1 tablet by mouth DAILY (6 AM).^Disp: 30 tablet^Rfl: 2 REVIEW OF SYSTEMS GENERAL:no unintentional weight loss, malaise or fevers. NEUROLOGIC: pt is alert and oriented GENITOURINARY: Positive for BPH The remainder of the ROS was reviewed and is negative. 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 Detected on EMG Pseudophakia, left eye 08/18/2022 Rectal cancer (HCC) Spinal stenosis of lumbar region with neurogenic claudication Vitamin D deficiency FAMILY HISTORY Problem Relation Age of Onset other (Heart stroke) Mother other (Glaucoma lung cancer) Father Leukemia Sister Glaucoma Sister Glaucoma Brother PAST SURGICAL HISTORY Procedure Laterality Date COLONOSCOPY GEN ANES 07/24/2020 Invasive Adenocarcinoma arising in a Tubulovillous Adenoma in the lower rectum, Tubular Adenomas, Fragment of Hyperplastic polyp, Internal Hemorrhoids EGD 07/24/2020 Will's Esophagus, Hyperplastic polyp in Duodenum EXCISION OF RECTAL TUMOR, TRANSANAL 11/24/2020 Dr. Ahmadi REMV CATARACT EXTRACAP,INSERT LENS Left 08/18/2022 REMV CATARACT EXTRACAP,INSERT LENS Right 09/08/2022 SOCIAL HISTORY Social History Tobacco Use Smoking status: Former Packs/day: 1.00 Years: 37.00 Total pack years: 37.00 Types: Cigarettes Quit date: 04/03/2010 Years since quittin.5 Smokeless tobacco: Never Tobacco comments: Smokes [place] Vaping Use Vaping Use: Never used Substance Use Topics Alcohol use: Not Currently Drug use: Yes Types: Marijuana Comment: daily PHYSICAL EXAMINATION General appearance: Well appearing, alert, in no acute distress, well-hydrated, well nourished Psych Alert and oriented to person, place and time Respiratory: no wheezing or rhonchi Abdomen Genitourinary: MALE EXAM: Exam NOT Indicated 01/19/2022 PSA 0.7 03/22/2021 Office cysto neg (microhem) 03/15/2021 Cytology neg 02/19/2021 CT a/p neg 02/17/2020 PSA 0.75, no Fhx of Design Eng Assessment and Plan: Microhematuria- prior w/u neg, no gross LUTS- baseline IPSS 26, nocturia 2-3x, freq Q 2h, ++ urgency, no leak, no hematuira/dysuria, - back on Flomax and started Proscar last, he says things slightly better, todays IPSS 22, less nocturia He has known herniated discs and chronic groin and LBP, entire left leg numb (on Flexeril and Oxycodone) Pt to see neurology soon - I told him any surgical intervention would require preoperative UDS, cont meds for now documented in this encounterVan [facility] Miscellaneous Notes* Telephone Encounter - Hazel Gomez MA - 11/02/2022 11:34 AM EDT LVM. Result was mailed to pt's home address. Rastaubaldo Gomez MA November 02, 2022 11:34 AM * Telephone Encounter - Hazel Gomez MA - 10/28/2022 1:53 PM EDT LVM. Hazel Gomez MA October 28, 2022 1:53 PM * Telephone Encounter - Hazel Gomez MA - 10/28/2022 1:53 PM EDT ----- Message from Artem Ahmadi MD sent at 10/28/2022 10:05 AM EDT ----- Number of precancerous polyps were found on this examination and we should repeat the colonoscopy in 1 year. Artem Ahmadi MD October 28, 2022 10:05 AM documented in this encounterVan [facility]08-01-2023 Miscellaneous Notes* Telephone Encounter - Jen Bergman RN - 11/01/2022 11:[address] Vega. I spoke w/ pt this morning. He states that he doesn't feel good - feels "sick". He feels weak. His stomach hurts. He hasn't eaten since Monday. Pt has a BARTHOLOMEW. States that he has back and groin pain. Expresses that he is frustrated. Pt is on his way to get labs drawn. He hasn't checked his BP. He's not checking his blood sugars. States that he is "trying' to take his meds and shots. Admits that he didn't take any meds yesterday. He hasn't taking any meds yet this morning. He has an appointment on 11/04/22. Thanks. Jen Pacheco, RN documented in this encounterVan [facility]08-01-[facility]23 History of Present illness Narrative* Jen Bergman RN - 11/01/2022 11:35 AM EDT PRIMARY CARE COORDINATION FOLLOW-UP NOTE Patient identified by name and date of . YES Spoke to patient Summary: PCC called pt for TCM f/u (D/C 09/16/22). Pt states that he's "not real good" today. He doesn't feelgood - feels "sick". Pt feels weak. His stomach hurts. He hasn't eaten since Monday. Pt has a BARTHOLOMEW. States that he has back and groin pain. Expresses that he is frustrated. Comfort provided. Pt is on his way to get labs drawn. He hasn't checked his BP. He's not checking his blood sugars often. Per pt, he is "trying' to take his meds and shots. Admits that he didn't take any meds yesterday. He hasn't taking any meds yet this morning. Pt thought he had an appointment today. No appointments scheduled for today on his CC schedule. Reminded of his Urology appointment tomorrow at 2:15p. Also remindedof his PCP appointment on 11/04/22 at 3p. No other concerns noted today. PCP to be notified. Will call if needs arise. Goals: Active Goals - Current status as of 11/01/2022 at 11:36 AM Most Recent Address all appropriate HM and disease care gaps No change (11/01/2022) Annual BMP On track (09/29/2022) Last 09/16/22 Annual foot exam On track (09/29/2022) Annual microalbumin On track (09/29/2022) Annual retina exam On track (09/29/2022) Blood Pressure < 130/80 144/71 (10/24/2022) Confirm medication adherence of all prescribed medications and uses them correctly No change (03/24/2021) HBA1C drawn quarterly No change (10/12/2022) Hemoglobin A1C < 7 11.6 (07/05/2021) Improve your coping skills No change (10/28/2020) LDL at or below 100 mg/dL or on a high statin No change (09/29/2022) Last 06/27/22 LDL = 198 Crestor 5mg Reduce fat intake On track (05/25/2021) Reduce sugar intake On track (05/25/2021) Tobacco cessation Understands and follows a low salt diet No change (09/23/2020) Understands and follows DASH diet Weight mgmt/activity No change (09/23/2020) 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 Signature Jen Bergman RN November 01, 2022 documented in this encounterVan [facility]07-14-2023 Miscellaneous Notes* Telephone Encounter - Belgica Vega DO - 10/14/2022 4:47 PM EDT Reviewed chart patient's last office visit was September 28, 2022. Patient was seen for hospital discharge follow-up. No labs were ordered at that time Patient will need to be seen, as well as history obtained to see if neurology referral appropriate Thank you, Belgica Vega D.O. * Telephone Encounter - Denia Anders LPN - 10/14/2022 2:03 PM EDT Patient's sister calling in to notify PCP that lab orders . "Can they be reordered?" She is also inquiring if a referral to Neuro can be placed; would like patient to be evaluated. Please advise. Denia Anders LPN documented in this encounterVan [facility]07-13-2023 History of Present illness Narrative* Sukumar Toney MD - 10/13/2022 10:09 AM EDT Cardiology consultation at the request of Dr. Vega. A copy of this consultation note will be provided to the requesting physician by way of shared Medical record or letter to requesting physician viaUS mail. Chief Complaint: Patient presents with: New Patient Evaluation: Ischemia History of Present Illness: José Manuel Ashton is a 61 year old male with history of essential hypertension, uncontrolled diabetes, dyslipidemia, obesity, CKD, spinal stenosis, rectal cancer was referred by his primary care physician for elevated cardiac enzymes during her recent hospital stay last month for hip pain. Patient says he has been getting sharp to pressure-like discomfort in his chest not always related to exertion lasting for a few minutes nonradiating occurring couple times a week. He also gets shortof breath on exertion. Denies any orthopnea PND. Has had some leg swelling. Gets lightheaded intermittently but has not passed out. He says he has a little stagger at times in his gait. He is dealingwith a lot of hip joint issues and has numbness in his left leg. 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 Ahmadi REMV CATARACT EXTRACAP,INSERT LENS Left 08/18/2022 REMV CATARACT EXTRACAP,INSERT LENS Right 09/08/2022 FAMILY HISTORY Problem Relation Age of Onset other (Heart stroke) Mother other (Glaucoma lung cancer) Father Leukemia Sister Glaucoma Sister Glaucoma Brother Social History Tobacco Use Smoking status: Former Packs/day: 1.00 Years: 37.00 Total pack years: 37.00 Types: Cigarettes Quit date: 04/03/2010 Years since quittin.5 Smokeless tobacco: Never Tobacco comments: Smokes [place] Vaping Use Vaping Use: Never used Substance Use Topics Alcohol use: Not Currently Drug use: Yes Types: Marijuana Comment: daily Current Outpatient Medications Medication Sig oxyCODONE IR (ROXICODONE) 10 mg tab Take by mouth once daily. lisinopril (ZESTRIL) 10 mg tablet Take 1 tablet by mouth once daily. cyclobenzaprine (FLEXERIL) 10 mg tablet Take 1 tablet by mouth three times daily as needed for muscle spasm. Sennosides (SENNA) 8.6 mg cap Take 1 capsule by mouth once daily. lidocaine (LIDODERM) 5 % Apply 1 Patch as directed once daily. to affected area. Remove patch after12 hours. rosuvastatin (CRESTOR) 5 mg tablet TAKE 1 TABLET BY MOUTH DAILY AT BEDTIME cholecalciferol, Vitamin D3, (VITAMIN D3) 1,250 mcg (50,000 unit) cap capsule Take 1 capsule by mouth one time a week. dulaglutide (TRULICITY) 4.5 mg/0.5 mL pen injector Inject 4.5 mg subcutaneously one time a week. Blood-Glucose Meter monitoring kit For monitoring sugars 3x/day (patient on insulin) Lancets lancets Recommend check blood sugar once daily, rotate times. Sometimes check in the morning sometimes 2 hours after meals, sometimes at bedtime. Please bring in blood sugar log and have available for review. alcohol swabs (ALCOHOL PREP PADS) Apply 1 application to affected area as directed. Recommend checkblood sugar once daily, rotate times. Sometimes check in the morning sometimes 2 hours after meals,sometimes at bedtime. Please bring in blood sugar log and have available for review. insulin glargine (LANTUS SOLOSTAR, BASAGLAR KWIKPEN) 100 unit/mL (3 mL) Inject 26 Units subcutaneously daily at bedtime. pioglitazone (ACTOS) 45 mg tablet Take 1 tablet by mouth once daily. tamsulosin (FLOMAX) 0.4 mg Take 1 capsule by mouth once daily. pantoprazole DR (PROTONIX) 40 mg tablet Take 1 tablet by mouth DAILY (6 AM). Insulin [place], Disposable, (COMFORT EZ PEN NEEDLES) 29 gauge x 1/2" 1 Each once daily. blood sugar diagnostic (BLOOD GLUCOSE TEST) test strip 3x/day acetaminophen (TYLENOL) 500 mg tablet Take 2 tablets by mouth every 8 hours. (Patient not taking: Reported on 10/13/2022) prednisoLONE acetate (PRED FORTE) 1 % ophthalmic suspension Use 1 Drop in the left eye four times daily. (Patient not taking: Reported on 10/13/2022) keTORolac (ACULAR) 0.5 % ophthalmic solution Use 1 Drop in the left eye four times daily. (Patient not taking: Reported on 10/13/2022) ciprofloxacin HCl (CILOXAN) 0.3 % ophthalmic solution Use 1 Drop in the left eye four times daily. (Patient not taking: Reported on 10/13/2022) ondansetron (ZOFRAN) 4 mg tablet Take by mouth every 8 hours as needed for nausea/vomiting. (Patient not taking: Reported on 10/13/2022) Current Facility-Administered Medications Medication Dose Route Frequency perflutren lipid microspheres 1.3 mL in NaCl (PF) 0.9% 10 mL injection (DEFINITY) INTRAVENOUS DIRECTED PRN sodium chloride 0.9 % (flush) 10 mL (BD POSIFLUSH) 10 mL INTRAVENOUS DIRECTED PRN ALLERGIES Allergen Reactions Penicillins Unknown Pt states he thinks he had a reaction as a child Review of Systems: General: No weight loss, malaise, fevers, chills, or night sweats HEENT: Negative for epistaxis Neck: Negative for pain and significant neck swelling Respiratory: Negative for cough, shortness of breath at rest or on exertion, wheezing Gastrointestinal: Negative history of abdominal pain, nausea, vomiting, constipation, diarrhea, melena, or hematochezia Urinary: Negative history of dysuria, hematuria, or frequency Peripheral vascular: No claudication Musculoskeletal: Negative for joint aches/pain, neck pain, or back pain Neurologic: Negative history of dizziness/lightheadedness, vertigo, numbness/tingling of hands or feet Hematologic: Negative for easy bruising or easy bleeding. Endocrine: Negative history of obesity Skin: Negative history of rash and itching Other: The rest of the review of systems is unremarkable and negative or non-contributory Physical Examination: BP 165/93 (BP Site: Left Arm, BP Position: Sitting, BP Cuff Size: Regular Adult) Pulse 90 Ht 5'10" (1.778 m) Wt 255 lb (115.7 kg) SpO2 96% BMI 36.59 kg/m BMI 36.59 kg/(m^2) General appearance: Well appearing, alert, appears to be in no acute distress, cooperative Head: Normocephalic, atraumatic HEENT: Extraocular movements intact; mucous membranes moist; no JVD Lungs: Breath sounds equal. Clear to auscultation bilaterally, no rales, rhonchi, or wheezes Heart: RRR; normal S1/S2; no murmurs/gallops/rubs Abdomen: Abdomen soft, non-distended, non-tender. NABS Extremities: No cyanosis, clubbing. 1+ edema bilaterally Skin: No rashes noted Neurologic: Grossly nonfocal Psych: Normal mood/affect Cardiac Testing and Procedures: Electrocardiogram: 09/28/2022: Normal sinus rhythm at 94 bpm. QTc 462 ms 08/12/2022: Normal sinus rhythm at 97 bpm. QTc 459 ms I have personally reviewed the Electrocardiogram. ASSESSMENT/PLAN: 1. Precordial pain - ICD9: 786.51, ICD10: R07.2 (primary diagnosis) Patient has been complaining of chest pressure intermittently for the last few months. He has risk factors for CAD including hypertension uncontrolled diabetes dyslipidemia and former smoker. I have ordered a Lexiscan nuclear stress test to evaluate this symptom. Patient unable to walk far due to severe hip joint pain and he walks with a cane very slowly. I told the patient that if he has chest pain which is not resolved in a few minutes to come into the emergency room right away for urgent evaluation. I have asked the patient to get a referral to see an superintendent meters and a dietitian to aggressively get his diabetes under control as this remains his biggest risk for CAD. 2. OTT (dyspnea on exertion) - ICD9: 786.09, ICD10: R06.09 I have ordered an echocardiogram to evaluate LV function. I have given the patient low-dose Lasix for his leg swelling. 3. Primary hypertension - ICD9: 401.9, ICD10: I10 - Controlled - Continue current medications - Recommend home blood pressure monitoring, to bring results to next visit - Encouraged sodium restriction, DASH or Mediterranean diet - Recommend regular aerobic exercise 4. Elevated troponins Patient's troponins were mildly elevated during recent hospitalization for hip joint pain. Delta troponin was negative. As such I have reassured the patient that he did not have a heart attack duringhis last hospitalization. I have ordered a echocardiogram to evaluate for wall motion and a stress test as mentioned above. 5. Dyslipidemia Patient is currently on Crestor 5 mg daily. LDL goal is 70. Patient is to get a formal lipid panel with his PCP shortly. If still above goal to increase Crestor accordingly. Sukumar Toney MD documented in this encounterVan [facility] Nurse Note* Lulu Owen MA - 10/13/2022 9:37 AM EDT Patient has no cardiac complaints today. Lulu Owen CMA documented in this encounterVan [facility]07-12-[facility]23 History of Present illness Narrative* Jen Bergman RN - 10/12/2022 3:44 PM EDT PRIMARY CARE COORDINATION FOLLOW-UP NOTE Patient identified by name and date of . NO Summary: PCC attempted TCM f/u call (D/C 09/16/22) - not able to leave a ms. Goals: Active Goals - Current status as of 10/12/2022 at 3:48 PM Most Recent Address all appropriate HM and disease care gaps No change (10/12/2022) Annual BMP On track (09/29/2022) Last 09/16/22 Annual foot exam On track (09/29/2022) Annual microalbumin On track (09/29/2022) Annual retina exam On track (09/29/2022) Blood Pressure < 130/80 147/87 (10/07/2022) Confirm medication adherence of all prescribed medications and uses them correctly No change (03/24/2021) HBA1C drawn quarterly No change (10/12/2022) Hemoglobin A1C < 7 11.6 (07/05/2021) Improve your coping skills No change (10/28/2020) LDL at or below 100 mg/dL or on a high statin No change (09/29/2022) Last 06/27/22 LDL = 198 Crestor 5mg Reduce fat intake On track (05/25/2021) Reduce sugar intake On track (05/25/2021) Tobacco cessation Understands and follows a low salt diet No change (09/23/2020) Understands and follows DASH diet Weight mgmt/activity No change (09/23/2020) 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 Signature Jen Bergman RN October 12, 2022 documented in this encounterVan [facility]07-10-[facility] History of Present illness Narrative* Mark Godinez MD - 10/10/2022 3:16 PM EDT Images from the original note were not included. ORTHOPAEDIC OFFICE NOTE CHIEF COMPLAINT: Left hip pain HISTORY OF PRESENT ILLNESS: José Manuel Ashton is a 61 year old male who presents for Evaluation of left hip pain. Patient reports over 5 years of worsening pain in the left hip. This began after an injury while he was getting out of his truck. Currently he reports pain that starts in his low back and buttock and wraps around intohis groin and down the thigh to the medial aspect of his knee. He also has numbness involves his entire left lower extremity stretching down to his foot. The pain is constant nature and rates 10/10 in intensity. He has not found any specific exacerbating factors as it is constant and severe at all times. He has been taking Flexeril and oxycodone for pain relief which is helpful. He reports that he has had multiple intra-articular injections. He states that he gets no relief from these at all. He has been using a cane to assist with ambulation. His medical history significant for diabetes, obesity, questionable coronary artery disease and kidney disease. Does use a marrow want a prescriptionfor pain control which is somewhat effective. He denies current fevers chills nausea vomiting weight loss fatigue or malaise. Reviewed nursing note and current pain scale. 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 Ahmadi REMV CATARACT EXTRACAP,INSERT LENS Left 08/18/2022 REMV CATARACT EXTRACAP,INSERT LENS Right 09/08/2022 FAMILY HISTORY Problem Relation Age of Onset other (Heart stroke) Mother other (Glaucoma lung cancer) Father Leukemia Sister Glaucoma Sister Glaucoma Brother Social History Tobacco Use Smoking status: Former Packs/day: 1.00 Years: 37.00 Total pack years: 37.00 Types: Cigarettes Quit date: 04/03/2010 Years since quittin.5 Smokeless tobacco: Never Tobacco comments: Smokes [place] Vaping Use Vaping Use: Never used Substance Use Topics Alcohol use: Not Currently Drug use: Yes Types: Marijuana Comment: daily MEDICATIONS: Current Outpatient Medications Medication Sig lisinopril (ZESTRIL) 10 mg tablet Take 1 tablet by mouth once daily. cyclobenzaprine (FLEXERIL) 10 mg tablet Take 1 tablet by mouth three times daily as needed for muscle spasm. acetaminophen (TYLENOL) 500 mg tablet Take 2 tablets by mouth every 8 hours. Sennosides (SENNA) 8.6 mg cap Take 1 capsule by mouth once daily. lidocaine (LIDODERM) 5 % Apply 1 Patch as directed once daily. to affected area. Remove patch after12 hours. rosuvastatin (CRESTOR) 5 mg tablet TAKE 1 TABLET BY MOUTH DAILY AT BEDTIME prednisoLONE acetate (PRED FORTE) 1 % ophthalmic suspension Use 1 Drop in the left eye four times daily. keTORolac (ACULAR) 0.5 % ophthalmic solution Use 1 Drop in the left eye four times daily. ciprofloxacin HCl (CILOXAN) 0.3 % ophthalmic solution Use 1 Drop in the left eye four times daily. cholecalciferol, Vitamin D3, (VITAMIN D3) 1,250 mcg (50,000 unit) cap capsule Take 1 capsule by mouth one time a week. dulaglutide (TRULICITY) 4.5 mg/0.5 mL pen injector Inject 4.5 mg subcutaneously one time a week. Blood-Glucose Meter monitoring kit For monitoring sugars 3x/day (patient on insulin) Lancets lancets Recommend check blood sugar once daily, rotate times. Sometimes check in the morning sometimes 2 hours after meals, sometimes at bedtime. Please bring in blood sugar log and have available for review. alcohol swabs (ALCOHOL PREP PADS) Apply 1 application to affected area as directed. Recommend checkblood sugar once daily, rotate times. Sometimes check in the morning sometimes 2 hours after meals,sometimes at bedtime. Please bring in blood sugar log and have available for review. insulin glargine (LANTUS SOLOSTAR, BASAGLAR KWIKPEN) 100 unit/mL (3 mL) Inject 26 Units subcutaneously daily at bedtime. pioglitazone (ACTOS) 45 mg tablet Take 1 tablet by mouth once daily. tamsulosin (FLOMAX) 0.4 mg Take 1 capsule by mouth once daily. ondansetron (ZOFRAN) 4 mg tablet Take by mouth every 8 hours as needed for nausea/vomiting. Insulin [place], Disposable, (COMFORT EZ PEN NEEDLES) 29 gauge x 1/2" 1 Each once daily. blood sugar diagnostic (BLOOD GLUCOSE TEST) test strip 3x/day pantoprazole DR (PROTONIX) 40 mg tablet Take 1 tablet by mouth DAILY (6 AM). No current facility-administered medications for this visit. ALLERGIES: ALLERGIES Allergen Reactions Penicillins Unknown Pt states he thinks he had a reaction as a child PHYSICAL EXAMINATION: Resp 16 Ht 5' 10" (1.78m) Wt 254 lb (115.2kg) BMI 36.45 kg/(m^2). General Appearance: Well appearing, alert, in no acute distress, well-hydrated, well nourished. Skin: Skin color, texture, turgor normal, no suspicious rashes or lesions. Psych: Patient is alert and oriented to person, time and place. Mood and affect are normal. Respiratory: Breathing is symmetric and unlabored Gait: Patient was examined in a wheelchair today. Extremities: Left lower extremity is examined. Skin is intact without erythema, ecchymosis or surgical scar. There is no significant swelling or edema. There is no focal tenderness or palpable mass. Range of motion of the hip is extremely painful for the patient. Lymphatic: There is no palpable lymphadenopathy Peripheral Pulses: Normal. Neurologic: Bilateral lower extremities were examined. There is 5/5 strength with hip flexion, kneeextension, dorsiflexion, EHL, plantar flexion. Sensation intact in all nerve dermatomes IMAGES: Physician office building radiographs, 10/10/2022. AP lateral views of the left hip demonstrate normal bony alignment. The joint spaces relatively well-maintained. There is no acute fracture or destructive lesion appreciable. Soft tissues otherwise unremarkable. IMPRESSION: 1. No evidence of a left acetabular labral tear. 2. No evidence of tendon tear or tendinosis. 3. Mild osteoarthritis of both hips with interval development of subchondral cystic change at the anterior superior acetabulum on both sides. No fracture, stress reaction or AVN. 4. Enlarged heterogeneous prostate gland. 5. Edema within the right lower posterior paraspinal musculature which may represent strain or possibly myositis. Field Administrative Assistant: [facility] Transcribe Date/Time: Sep 01 2022 7:57A Dictated by : DOREEN GRAJEDA MD This examination was interpreted and the report reviewed and electronically signed by: DOREEN GRAJEDA MD on Sep 01 2022 8:08AM EST Results-Findings * * *Final Report* * * DATE OF EXAM: Aug 30 2022 10:22AM [facility] 0168 - MRI ARTHROGRAM HIP LT / PROCEDURE REASON: multiple diagnoses * * * * Physician Interpretation * * * * LEFT HIP MRI ARTHROGRAM CLINICAL INDICATION: Left hip pain. Concern for labral tear or flexor tendon injury. COMPARISON: MRI left hip 09/09/2020 TECHNIQUE: Large nfpat-[id number] coronal T1, axial and coronal STIR sequences of the pelvis and both hips. Small cfgys-fj-jghu coronal, sagittal and oblique axial fat saturated T1-weighted sequences of the left hip were acquired following the intra-articular injection of dilute gadolinium based contrast. FINDINGS: There is femoroacetabular chondral thinning and fissuring along the anterior superior portion of the left hip. There has been interval development of degenerative subchondral cysts at the left anterior/superior acetabulum. No fracture or evidence of AVN. There has been development of degenerative subchondral cysts at the right anterior superior acetabulum. No fracture or AVN of the right hip. There is a small right hip joint effusion. Evaluation of the right hip articular cartilage and labrum is limited due to the large gouxw-bm-leqe. Sacroiliac joints and symphysis pubis are maintained. Rectus femoris and iliopsoas tendons are intact bilaterally. Hamstring tendons are intact bilaterally. Gluteus medius and minimus tendons are intact bilaterally. No greater trochanteric bursitis. There is edema within the right posterior paraspinal musculature. There are degenerative changes in the visualized lower lumbar spine. Pelvic and proximal thigh musculature is otherwise symmetric and show normal bulk and signal intensity. Prostate gland is enlarged and heterogeneous Plan ASSESSMENT AND PLAN: 1. Pain in left hip - ICD9: 719.45, ICD10: M25.552 Functional Plan: Patient is a 61-year-old male presenting for evaluation of left hip pain. Pain is mainly located in the buttock and groin and also has numbness extending down his leg. Radiographs ofthe hip today do not demonstrate any significant degenerative change or acute osseous abnormality. Recent MRI does demonstrate some mild degenerative changes at the hip joint. Does not seem that The level of his pain correlates with the level degeneration at his hip. He also reports that he has hadmultiple intra-articular injections which provided him absolutely no relief for any period of time.Most recent injection was in 2020. I discussed repeating the injection with him for diagnostic and therapeutic purposes. Should he have at least some pain relief then that would be an indicator that his pain is coming from the mild degenerative joint disease seen on MRI and we could consider hip replacement surgery at that point in time. At this point I am not convinced that his pain is definitely coming from the hip and that considering any surgery at this point will be of questionable benefit. He is very frustrated with his ongoing pain. I did offer him a referral to pain management for evaluation and management as indicated. He is not interested in an injection in the hip today. He is welcome to follow-up with me as needed for this or any other issue. All of his questions were answeredsatisfactorily. He expressed understanding of and agreement with the treatment plan. Medical Decision Making: Problems: Low: Stable chronic illness Data: Unique test result(s) reviewed: 1 Unique test(s) ordered: 1 Independent interpretation of test from other physician/QHCP Discussed management or test w/ external physician/QHCP/source Risk: Low: Low risk from testing/treatment Medical Decision Making Level: 3 - Low Return if symptoms worsen or fail to improve. Mark Godinez MD * Codey Evans Tech - 10/10/2022 1:33 PM EDT REVIEW OF SYSTEMS: GENERAL: Well developed, well nourished. No acute distress PAIN: left hip pain CARDIOVASCULAR: Negative for chest pain, leg swelling and palpations. MSK: Negative for joint swelling SKIN: Negative for lesions, rash, itching, metal sensitivity NEURO: left LE numbness ENDOCRINE: Positive for diabetic associated symptoms HEMATOLOGY: Negative for excessive bleeding, clots, bleeding disorders. documented in this encounterVan [facility]07-[facility]23 History of Present illness Narrative* Jen Bergman RN - 10/03/2022 3:24 PM EDT PRIMARY CARE COORDINATION FOLLOW-UP NOTE Patient identified by name and date of . NO Summary: PCC attempted TCM f/u call (D/C 09/16/22) - not able to leave a msg. Goals: Active Goals - Current status as of 10/03/2022 at 3:25 PM Most Recent Address all appropriate HM and disease care gaps No change (09/29/2022) Annual BMP On track (09/29/2022) Last 09/16/22 Annual foot exam On track (09/29/2022) Annual microalbumin On track (09/29/2022) Annual retina exam On track (09/29/2022) Blood Pressure < 130/80 135/81 (09/28/2022) Confirm medication adherence of all prescribed medications and uses them correctly No change (03/24/2021) HBA1C drawn quarterly On track (09/29/2022) Hemoglobin A1C < 7 11.6 (07/05/2021) Improve your coping skills No change (10/28/2020) LDL at or below 100 mg/dL or on a high statin No change (09/29/2022) Last 06/27/22 LDL = 198 Crestor 5mg Reduce fat intake On track (05/25/2021) Reduce sugar intake On track (05/25/2021) Tobacco cessation Understands and follows a low salt diet No change (09/23/2020) Understands and follows DASH diet Weight mgmt/activity No change (09/23/2020) 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 Signature Jen Bergman RN October 03, 2022 documented in this encounterVan [facility]06-29-2023 History of Present illness Narrative* Jen Bergman RN - 09/29/2022 11:17 AM EDT PRIMARY CARE COORDINATION FOLLOW-UP NOTE Patient identified by name and date of . NO Summary: PCC attempted TCM f/u call (D/C 09/16/22) - didn't reach pt. Pt saw his PCP yesterday. Goals: Active Goals - Current status as of 09/29/2022 at 11:25 AM Most Recent Address all appropriate HM and disease care gaps No change (09/29/2022) Annual BMP On track (09/29/2022) Last 09/16/22 Annual foot exam On track (09/29/2022) Annual microalbumin On track (09/29/2022) Annual retina exam On track (09/29/2022) Blood Pressure < 130/80 135/81 (09/28/2022) Confirm medication adherence of all prescribed medications and uses them correctly No change (03/24/2021) HBA1C drawn quarterly On track (09/29/2022) Hemoglobin A1C < 7 11.6 (07/05/2021) Improve your coping skills No change (10/28/2020) LDL at or below 100 mg/dL or on a high statin No change (09/29/2022) Last 06/27/22 LDL = 198 Crestor 5mg Reduce fat intake On track (05/25/2021) Reduce sugar intake On track (05/25/2021) Tobacco cessation Understands and follows a low salt diet No change (09/23/2020) Understands and follows DASH diet Weight mgmt/activity No change (09/23/2020) 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 Signature Jen Bergman RN September 29, 2022 documented in this encounterVan [facility]06-28-2023 Miscellaneous Notes* Telephone Encounter - Kenya Janes - 09/28/2022 12:22 PM EDT Confirmation number: [id number] Consult to Cardiology Confirmation number: [id number] Consult to Dermatology Confirmation number: [id number] Consult to Nephrology documented in this encounterVan [facility]ert [facility]06-28-2023 History of Present illness Narrative* Belgica Vega DO - 09/28/2022 11:06 AM EDT Transitional Care Management TCM Eligibility Documentation The following information was gathered during the initial Patient Outreach Encounter. Date of Outreach: 09/19/2022 Outreach Attempt 1: Contact Made Date of Discharge 09/16/2022 Some recent data might be hidden Summary Discharged from: [facility] Admit Date: September 14, 2022, discharged September 16, 2022 Admitted for: Hypertensive urgency, acute/chronic back pain Belgica Vega DO Provider Documentation José Manuel Ashton is a 61 year old male here today for a follow up to recent hospitalization. I have reviewed the patient's hospital course including diagnostic testing performed during this hospitalization, their discharge medications, and my assessment and plan with the patient and any family members present at today's visit. HPI: Pt here with faina Maciel. Per chart review patient with PMH of rectal cancer, CKD stage III, DM 2 hypertension and chronic back pain with lumbar stenosis with neurogenic claudication presented to ED because of back pain. Backpain left side that radiated to LLE. Patient had underwent MRI with arthrogram for hip injections 12 days prior to ED visit. Denied saddle anesthesia or change in bowel or bladder habits. Patient haslumbar MRI's scheduled for September 30, 2022. Patient had MRI lumbar spine:Results MRI LUMBAR SPINE WO JAMES (Acc#[id number]) (Order [id number]) Patient Info Patient Name Sex José Manuel Holm ([id number]) Male 1960 09/15/2022 4:43 PM - Radiology, Oru In Impression IMPRESSION: 1. Multiple level lower lumbar degenerative disc disease. Multilevel facet joint arthrosis. 2. Multilevel central canal stenosis, most pronounced the L3-L4 level. 3. L3-L4 right intraforaminal disc protrusion with possible mass effect on exiting right L3 nerve root. Correlate clinically. 4. Multilevel degenerative neural foraminal narrowing as detailed above. Anatomic Lumbar Variant: None. L4-5 is considered the level of the iliac crest and assume there are 5 lumbar-type vertebrae. Patient had reported 4 days of nausea and vomiting. Patient had CT of abdomen and pelvis:09/14/2022 10:01 PM - Radiology, Oru In Impression IMPRESSION: No acute findings. Per hospital note patient had been noncompliant with DM treatment. Patient had admitted to using marijuana daily. Patient was treated with scheduled regimen of Tylenol, prednisone burst, add lidocaine patches, Flexeril and oxycodone as needed and morphine for breakthrough pain. Orthopedics was consulted. Patientdid see orthopedics September 23, 2022 per note patient indicated he continues to have left thigh and left radicular pain. MRI showed disc protrusion with mass effect on the left L3 nerve which is chronic. Patient was prescribed oxycodone by orthopedics patient was referred to spine surgeon. Pt to see Dr. Rider next James, spine surgeon per Janell. Patient has history of lumbar back pain with radiculopathy, chronic left hip pain spinal stenosis of lumbar region with intermittent claudication, chronic low back pain with left-sided sciatica. Patient's diagnosis was acute/chronic back pain, intractable back pain lumbar spinal stenosis, chronic left hip pain and lumbar radiculopathy. Patient was referred to PT OT. Pt hasnt gone yet. To seepain management 10/10/22. Had hypertensive urgency likely thought to be contributed to by pain. Lisinopril was increased to 10 mg daily. Patient was to take hydralazine and labetalol as needed Patient also diagnosed with an NSTEMI 2, likely demand ischemia, EKG NSR. Patient indicates unawareof that diagnosis. Patient diagnosed with non-intractable nausea and vomiting likely marijuana induced and secondary to hyperglycemia. Patient was also diagnosed with lactic acidosis which was resolved with IVF, prolonged QTc, CKD stage III Patient had lab September 16, 2022 glucose 295, BUN 28 creatinine 1.52 sodium 132 potassium 4.4, urine culture negative magnesium 1.9, CBC unremarkable Patient has history of hypertension and lower extremity edema.. BP today is 135/81. BP during last office visit was 177/86, recheck 157/96 during September 2022 patient is on lisinopril 10 mg. Patient is tolerating medication well. Patient does have history of diabetes and noncompliance with diabetic medications. Patient does have history of DKA from medication noncompliance. Patient sees endocrinology. Patient does not check his blood sugar at home.. Patient's A1c was 9.7 during May 2022.Patient is being prescribed Lantus 26 units, Trulicity 4.5 milligrams weekly, takes on Monday., Actos 45 mg with lunch. Pt indicatesdoing better with taking meds, pills. Sometimes skips his shot. Patient does have history of microalbuminuria Patient has history of hyperlipidemia.. Cholesterol was 296 LDL 1 78 during March 2022. Patient admitted previously that he was not taking Lipitor 40 mg and never picked up his prescription for Crestor. Patient has history of hyponatremia. Sodium was 134 during July 2021 Patient has history of elevated alkaline phosphatase it was 143 during July 2021 Patient does have history of MEKHI. It was recommended patient schedule Pap titration previously Pap titration is pending from October 2021 Patient does have history of marijuana use. Pt smokes 1-2 joints per day, use to smoke 3-5 daily. 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 Patient also has history of invasive adenocarcinoma of the rectum.Patient is status post rectal surgery November 24, 2020. Patient does see general surgeon and oncologist. Patient is being prescribed Protonix 40 mg as well as Zofran 4 mg Pt to get colonoscopy and see Dr. Cano 10/2022. Janell states hitting him up left and right. Patient's BMI is 36.45.. Patient's weight has been relatively stable Patient does have history of BPH, hematuria and nocturia. Patient sees urology Patient does see psychiatry for anxiety and depression. Patient's last annual physical was August 12, 2022.. Lab is pending from then Patient complains of lesion on right side . It is been there for X 4days. Patient denies any pain, itching, blisters or rash. States has boil. Kind of rashy, has had boil in past. States stinks bad and finally drained. Feels cold, denies F. Patient has not put anything on lesion. Has had on head, armpit, buttocks, get big, will sting at times. Has had on leg, not on groin. Review of Systems Constitutional: Negative for chills, diaphoresis, fever and malaise/fatigue. Respiratory: Negative for shortness of breath. Cardiovascular: Negative for chest pain and leg swelling. Gastrointestinal: Negative for abdominal pain, nausea and vomiting. Genitourinary: Negative for dysuria. Musculoskeletal: Positive for back pain, joint pain and myalgias. Skin: Positive for rash. Neurological: Negative for dizziness and headaches. Endo/Heme/Allergies: Negative for environmental allergies. Psychiatric/Behavioral: Negative for depression. Vitals BP 135/81 Pulse 101 Ht 5' 10" (1.78m) Wt 254 lb (115.2kg) BMI 36.45 kg/(m^2). Physical Exam HENT: Head: Normocephalic and atraumatic. Right Ear: Tympanic membrane, ear canal and external ear normal. Left Ear: Tympanic membrane, ear canal and external ear normal. Nose: Nose normal. Mouth/Throat: Pharynx: Uvula midline. Eyes: General: Lids are normal. Conjunctiva/sclera: Conjunctivae normal. Pupils: Pupils are equal, round, and reactive to light. Neck: Trachea: Trachea normal. Cardiovascular: Rate and Rhythm: Normal rate and regular rhythm. Pulses: Normal pulses. Heart sounds: Normal heart sounds. Pulmonary: Effort: Pulmonary effort is normal. Breath sounds: Normal breath sounds. Abdominal: General: Bowel sounds are normal. Palpations: Abdomen is soft. Tenderness: There is no abdominal tenderness. There is no guarding. Musculoskeletal: Cervical back: Neck supple. Lymphadenopathy: Cervical: No cervical adenopathy. Skin: General: Skin is warm and dry. Findings: Acne and rash present. Rash is papular. Comments: 6x 4 cm abscess slightly fluctuant in the center. Has silva left shoulder Neurological: Mental Status: He is alert and oriented to person, place, and time. Psychiatric: Mood and Affect: Affect normal. ASSESSMENT/PLAN: 1. Hospital discharge follow-up - ICD9: V67.59, ICD10: Z09 (primary diagnosis) 2. Chronic bilateral low back pain with left-sided sciatica - ICD9: 724.2, 724.3, 338.29, ICD10: M54.42, G89.29 Chronic low back pain Follow-up with spinal surgery Follow-up with pain management 3. Spinal stenosis of lumbar region with neurogenic claudication - ICD9: 724.03, ICD10: M48.062 Follow-up with spinal surgery Follow-up with pain management 4. Nausea and vomiting in adult - ICD9: 787.01, ICD10: R11.2 Briefly discussed hyperglycemia uncontrolled diabetes and marijuana use 5. Myocardial infarction due to demand ischemia (HCC) - ICD9: 410.90, 411.89, ICD10: I21.A1 Briefly discussed in layman's terms - CONSULT TO CARDIOLOGY - ECG B/O WO INTERP (MED OFFICE) EKG shows NSR with heart rate of 94, there is artifact, QT interval was 370, EKG looks similar to previous EKG, patient informed of results 6. Stage 3 chronic kidney disease, unspecified whether stage 3a or 3b CKD (HCC) - ICD9: 585.3, ICD10: N18.30 - ACEi/ARB prescribed: lisinopril - CONSULT TO NEPHROLOGY 7. Diabetes mellitus due to underlying condition, uncontrolled, with hyperglycemia (HCC) - ICD9: 249.81, 790.29, ICD10: E08.65 8. Hyponatremia - ICD9: 276.1, ICD10: E87.1 Stable - CONSULT TO NEPHROLOGY 9. Hypertension, essential - ICD9: 401.9, ICD10: I10 - Controlled - Continue current medications - Recommend home blood pressure monitoring, to bring results to next visit - Encouraged sodium restriction, DASH or Mediterranean diet - Recommend regular aerobic exercise - ECG B/O WO INTERP (MED OFFICE) - LISINOPRIL 10 MG TABLET 10. Bilateral leg edema - ICD9: 782.3, ICD10: R60.0 Controlled 11. Mixed hyperlipidemia - ICD9: 272.2, ICD10: E78.2 - Control undetermined, due for labs - Counseled on healthy diet and regular exercise - Discussed need for and benefit of weight loss. BMI 36.45 kg/(m^2) 12. Microalbuminuria - ICD9: 791.0, ICD10: R80.9 On lisinopril 10 mg currently 13. H/O medication noncompliance - ICD9: V15.81, ICD10: Z91.148 Encourage compliance with medication especially injectables for diabetes 14. Vitamin D deficiency - ICD9: 268.9, ICD10: E55.9 Lab pending 15. MEKHI (obstructive sleep apnea) - ICD9: 327.23, ICD10: G47.33 PAP titration pending from May 18, 2022 16. Obesity, Class II, BMI 35-39.9 - ICD9: 278.00, ICD10: E66.9 Stable - Behavioral intervention 17. Marijuana use - ICD9: 305.20, ICD10: F12.90 Daily 18. History of BPH - ICD9: V13.89, ICD10: Z87.438 PSA pending 19. 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 - ICD9: 530.85, ICD10: K22.719 Follow-up with general surgery October 2022 20. Malignant neoplasm of rectum (HCC) - ICD9: 154.1, ICD10: C20 Follow-up with general surgery 21. Anxiety and depression - ICD9: 300.00, 311, ICD10: F41.9, F32.A Follow-up with psychiatry 22. Chronic left hip pain - ICD9: 719.45, 338.29, ICD10: M25.552, G89.29 Briefly discussed lumbar spinal stenosis, leg and hip pain in layman's terms 23. Lumbar radiculopathy - ICD9: 724.4, ICD10: M54.16 Follow-up with spine surgery 24. Hidradenitis suppurativa - ICD9: 705.83, ICD10: L73.2 Briefly discussed in layman's terms - CONSULT TO DERMATOLOGY 25. Cutaneous abscess of abdominal wall - ICD9: 682.2, ICD10: L02.211 Briefly discussed infections and uncontrolled diabetes Continue warm moist compress to area - CONSULT TO DERMATOLOGY Bactrim was not selected secondary to possibility of hyperkalemia with lisinopril - DOXYCYCLINE HYCLATE 100 MG TABLET Belgica Vega DO RTC 2 weeksFollow-up abscess right side, Medication follow-up, Diabetes, general surgery visit documented in this encounterVan [facility] History of Present illness Narrative* Binh Lake DO - 09/23/2022 3:42 PM EDT HPI: José Manuel Ashton is a 61 year old male who presents today for follow-up of low back pain and MRI results. MRI shows: 1. Multiple level lower lumbar degenerative disc disease. Multilevel facet joint arthrosis. 2. Multilevel central canal stenosis, most pronounced the L3-L4 level. 3. L3-L4 right intraforaminal disc protrusion with possible mass effect on exiting right L3 nerve root. Correlate clinically. 4. Multilevel degenerative neural foraminal narrowing as detailed above. 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 Ahmadi REMV CATARACT EXTRACAP,INSERT LENS Left 08/18/2022 REMV CATARACT EXTRACAP,INSERT LENS Right 09/08/2022 Social History Tobacco Use Smoking status: Former Packs/day: 1.00 Years: 37.00 Pack years: 37.00 Types: Cigarettes Quit date: 04/03/2010 Years since quittin.4 Smokeless tobacco: Never Tobacco comments: Smokes [place] Vaping Use Vaping Use: Never used Substance Use Topics Alcohol use: Not Currently Drug use: Yes Types: Marijuana Comment: daily Current Outpatient Medications Medication Sig cyclobenzaprine (FLEXERIL) 10 mg tablet Take 1 tablet by mouth three times daily as needed for muscle spasm. acetaminophen (TYLENOL) 500 mg tablet Take 2 tablets by mouth every 8 hours. lisinopril (ZESTRIL) 10 mg tablet Take 1 tablet by mouth once daily. Sennosides (SENNA) 8.6 mg cap Take 1 capsule by mouth once daily. lidocaine (LIDODERM) 5 % Apply 1 Patch as directed once daily. to affected area. Remove patch after12 hours. rosuvastatin (CRESTOR) 5 mg tablet TAKE 1 TABLET BY MOUTH DAILY AT BEDTIME prednisoLONE acetate (PRED FORTE) 1 % ophthalmic suspension Use 1 Drop in the left eye four times daily. keTORolac (ACULAR) 0.5 % ophthalmic solution Use 1 Drop in the left eye four times daily. ciprofloxacin HCl (CILOXAN) 0.3 % ophthalmic solution Use 1 Drop in the left eye four times daily. cholecalciferol, Vitamin D3, (VITAMIN D3) 1,250 mcg (50,000 unit) cap capsule Take 1 capsule by mouth one time a week. dulaglutide (TRULICITY) 4.5 mg/0.5 mL pen injector Inject 4.5 mg subcutaneously one time a week. Blood-Glucose Meter monitoring kit For monitoring sugars 3x/day (patient on insulin) Lancets lancets Recommend check blood sugar once daily, rotate times. Sometimes check in the morning sometimes 2 hours after meals, sometimes at bedtime. Please bring in blood sugar log and have available for review. alcohol swabs (ALCOHOL PREP PADS) Apply 1 application to affected area as directed. Recommend checkblood sugar once daily, rotate times. Sometimes check in the morning sometimes 2 hours after meals,sometimes at bedtime. Please bring in blood sugar log and have available for review. insulin glargine (LANTUS SOLOSTAR, BASAGLAR KWIKPEN) 100 unit/mL (3 mL) Inject 26 Units subcutaneously daily at bedtime. pioglitazone (ACTOS) 45 mg tablet Take 1 tablet by mouth once daily. tamsulosin (FLOMAX) 0.4 mg Take 1 capsule by mouth once daily. ondansetron (ZOFRAN) 4 mg tablet Take by mouth every 8 hours as needed for nausea/vomiting. Insulin [place], Disposable, (COMFORT EZ PEN NEEDLES) 29 gauge x 1/2" 1 Each once daily. blood sugar diagnostic (BLOOD GLUCOSE TEST) test strip 3x/day oxyCODONE IR (ROXICODONE) 5 mg immediate release tablet Take 1 tablet by mouth every 6 hours as needed for pain for up to [address] pain. pantop[address] (PROTONIX) 40 mg tablet Take 1 tablet by mouth DAILY (6 AM). No current facility-administered medications for this visit. ALLERGIES Allergen Reactions Penicillins Unknown Pt states he thinks he had a reaction as a child Resp 16 Ht 5' 10" (1.78m) Wt 254 lb (115.2kg) BMI 36.45 kg/(m^2). ASSESSMENT: (M54.16) Lumbar back pain with radiculopathy affecting lower extremity (primary encounter diagnosis) (M54.42, G89.29) Chronic bilateral low back pain with left-sided sciatica PLAN: José Manuel continues to have significant left thigh and leg radicular pain. The MRI does show disc protrusion with mass effect on the left L3 nerve. This is a chronic problem. He would like to set up consultation with one of our spine surgeons. I will see him back as needed. Binh Lake DO documented in this encounterVan [facility]06-[facility] History of Present illness Narrative* Meera Contreras, DEMETRIUS - 09/16/2022 2:21 PM EDT Assessment/Plan: 1. Pseudophakia of both eyes Educated patient on findings. Educated patient on drop instructions. RTC with worsening vision/pain/irritation or new flashes/floaters/curtains/veils. RIGHT EYE: Stop Ciprofloxacin (flores) Continue Ketorolac (rasmussen) and Prednisolone (pink) 3 times daily x 1 week then 2 times daily x 1 week then 1 time daily x 1 week then stop STOP LEFT EYE drops Meera Contreras, DEMETRIUS RTC 10/21/2022 final post op documented in this encounterVan [facility] Instructions* Patient Instructions* Meera Contreras, OD - 09/16/2022 2:19 PM EDT RIGHT EYE: Stop Ciprofloxacin (flores) Continue Ketorolac (rasmussen) and Prednisolone (pink) 3 times daily x 1 week then 2 times daily x 1 week then 1 time daily x 1 week then stop STOP LEFT EYE drops documented in this encounterVan [facility]06[facility] History of Past illness Narrative* Problem Noted Date Resolved Date Nuclear senile cataract of right eye 09/08/2022 09/08/2022 Nuclear sclerotic cataract of left eye 3 08/18/2022 Abdominal discomfort 01/18/2022 01/19/2022 Nuclear senile cataract of both eyes 11/05/2021 09/09/2022 Microscopic hematuria 03/08/2021 01/17/2022 Weakness 05/05/2020 06/15/2020 Decreased mobility and endurance 05/05/2020 06/15/2020 documented as of this encounter (statuses as of 09/16/2022) [facility] illness Narrative* Problem Noted Date Resolved Date Nuclear senile cataract of right eye 09/08/2022 09/08/2022 Nuclear sclerotic cataract of left eye 3 08/18/2022 Abdominal discomfort 01/18/2022 01/19/2022 Nuclear senile cataract of both eyes 11/05/2021 09/09/2022 Microscopic hematuria 03/08/2021 01/17/2022 Weakness 05/05/2020 06/15/2020 Decreased mobility and endurance 05/05/2020 06/15/2020 documented as of this encounter (statuses as of 09/28/2022) [facility] illness Narrative* Problem Noted Date Resolved Date Nuclear senile cataract of right eye 09/08/2022 09/08/2022 Nuclear sclerotic cataract of left eye 3 08/18/2022 Abdominal discomfort 01/18/2022 01/19/2022 Nuclear senile cataract of both eyes 11/05/2021 09/09/2022 Microscopic hematuria 03/08/2021 01/17/2022 Weakness 05/05/2020 06/15/2020 Decreased mobility and endurance 05/05/2020 06/15/2020 documented as of this encounter (statuses as of 09/28/2022) [facility] Narrative* Problem Noted Date Resolved Date Nuclear senile cataract of right eye 09/08/2022 09/08/2022 Nuclear sclerotic cataract of left eye 3 08/18/2022 Abdominal discomfort 01/18/2022 01/19/2022 Nuclear senile cataract of both eyes 11/05/2021 09/09/2022 Microscopic hematuria 03/08/2021 01/17/2022 Weakness 05/05/2020 06/15/2020 Decreased mobility and endurance 05/05/2020 06/15/2020 documented as of this encounter (statuses as of 09/29/2022) [facility] Narrative* Problem Noted Date Resolved Date Nuclear senile cataract of right eye 09/08/2022 09/08/2022 Nuclear sclerotic cataract of left eye 3 08/18/2022 Abdominal discomfort 01/18/2022 01/19/2022 Nuclear senile cataract of both eyes 11/05/2021 09/09/2022 Microscopic hematuria 03/08/2021 01/17/2022 Weakness 05/05/2020 06/15/2020 Decreased mobility and endurance 05/05/2020 06/15/2020 documented as of this encounter (statuses as of 09/30/2022) [facility] Narrative* Problem Noted Date Resolved Date Nuclear senile cataract of right eye 09/08/2022 09/08/2022 Nuclear sclerotic cataract of left eye 3 08/18/2022 Abdominal discomfort 01/18/2022 01/19/2022 Nuclear senile cataract of both eyes 11/05/2021 09/09/2022 Microscopic hematuria 03/08/2021 01/17/2022 Weakness 05/05/2020 06/15/2020 Decreased mobility and endurance 05/05/2020 06/15/2020 documented as of this encounter (statuses as of 10/04/2022) [facility] Narrative* Problem Noted Date Diagnosed Date Resolved Date Nuclear senile cataract of right eye 09/08/2022 09/08/2022 Nuclear sclerotic cataract of left eye 08/18/2022 08/18/2022 Abdominal discomfort 01/18/2022 022 Nuclear senile cataract of both eyes 11/05/2021 09/09/2022 Microscopic hematuria 03/08/20212021 Weakness 05/05/2020 06/15/2020 Decreased mobility and endurance 05/05/2020 06/15/2020 documented as of this encounter (statuses as of 10/11/2022) [facility] Narrative* Problem Noted Date Diagnosed Date Resolved Date Nuclear senile cataract of right eye 09/08/2022 09/08/2022 Nuclear sclerotic cataract of left eye 08/18/2022 08/18/2022 Abdominal discomfort 01/18/2022 022 Nuclear senile cataract of both eyes 11/05/2021 09/09/2022 Microscopic hematuria 03/08/20212021 Weakness 05/05/2020 06/15/2020 Decreased mobility and endurance 05/05/2020 06/15/2020 documented as of this encounter (statuses as of 10/13/2022) [facility] Narrative* Problem Noted Date Diagnosed Date Resolved Date Nuclear senile cataract of right eye 09/08/2022 09/08/2022 Nuclear sclerotic cataract of left eye 08/18/2022 08/18/2022 Abdominal discomfort 01/18/2022 022 Nuclear senile cataract of both eyes 11/05/2021 09/09/2022 Microscopic hematuria 03/08/20212021 Weakness 05/05/2020 06/15/2020 Decreased mobility and endurance 05/05/2020 06/15/2020 documented as of this encounter (statuses as of 10/13/2022) [facility] Narrative* Problem Noted Date Diagnosed Date Resolved Date Nuclear senile cataract of right eye 09/08/2022 09/08/2022 Nuclear sclerotic cataract of left eye 08/18/2022 08/18/2022 Abdominal discomfort 01/18/2022 022 Nuclear senile cataract of both eyes 11/05/2021 09/09/2022 Microscopic hematuria 03/08/20212021 Weakness 05/05/2020 06/15/2020 Decreased mobility and endurance 05/05/2020 06/15/2020 documented as of this encounter (statuses as of 10/15/2022) [facility] Narrative* Problem Noted Date Diagnosed Date Resolved Date Nuclear senile cataract of right eye 09/08/2022 09/08/2022 Nuclear sclerotic cataract of left eye 08/18/2022 08/18/2022 Abdominal discomfort 01/18/20222 022 Nuclear senile cataract of both eyes 11/05/2021 09/09/2022 Microscopic hematuria 03/08/20212021 Weakness 05/05/2020 06/15/2020 Decreased mobility and endurance 05/05/2020 06/15/2020 documented as of this encounter (statuses as of 11/01/2022) [facility] Narrative* Problem Noted Date Diagnosed Date Resolved Date Nuclear senile cataract of right eye 09/08/2022 09/08/2022 Nuclear sclerotic cataract of left eye 08/18/2022 08/18/2022 Abdominal discomfort 01/18/2022 022 Nuclear senile cataract of both eyes 11/05/2021 09/09/2022 Microscopic hematuria 03/08/20212021 Weakness 05/05/2020 06/15/2020 Decreased mobility and endurance 05/05/2020 06/15/2020 documented as of this encounter (statuses as of 11/02/2022) [facility] Narrative* Problem Noted Date Diagnosed Date Resolved Date Nuclear senile cataract of right eye 09/08/2022 09/08/2022 Nuclear sclerotic cataract of left eye 08/18/2022 08/18/2022 Abdominal discomfort 01/18/2022 022 Nuclear senile cataract of both eyes 11/05/2021 09/09/2022 Microscopic hematuria 03/08/20212021 Weakness 05/05/2020 06/15/2020 Decreased mobility and endurance 05/05/2020 06/15/2020 documented as of this encounter (statuses as of 11/03/2022) [facility] Narrative* Problem Noted Date Diagnosed Date Resolved Date Nuclear senile cataract of right eye 09/08/2022 09/08/2022 Nuclear sclerotic cataract of left eye 08/18/2022 08/18/2022 Abdominal discomfort 01/18/2022 022 Nuclear senile cataract of both eyes 11/05/2021 09/09/2022 Microscopic hematuria 03/08/20212021 Weakness 05/05/2020 06/15/2020 Decreased mobility and endurance 05/05/2020 06/15/2020 documented as of this encounter (statuses as of 11/03/2022) [facility] Narrative* Problem Noted Date Diagnosed Date Resolved Date Nuclear senile cataract of right eye 09/08/2022 09/08/2022 Nuclear sclerotic cataract of left eye 08/18/2022 08/18/2022 Abdominal discomfort 01/18/2022 022 Nuclear senile cataract of both eyes 11/05/2021 09/09/2022 Microscopic hematuria 03/08/20212021 Weakness 05/05/2020 06/15/2020 Decreased mobility and endurance 05/05/2020 06/15/2020 documented as of this encounter (statuses as of 11/04/2022) [facility] Narrative* Problem Noted Date Diagnosed Date Resolved Date Nuclear senile cataract of right eye 09/08/2022 09/08/2022 Nuclear sclerotic cataract of left eye 08/18/2022 08/18/2022 Abdominal discomfort 01/18/2022 022 Nuclear senile cataract of both eyes 11/05/2021 09/09/2022 Microscopic hematuria 03/08/20212021 Weakness 05/05/2020 06/15/2020 Decreased mobility and endurance 05/05/2020 06/15/2020 documented as of this encounter (statuses as of 11/05/2022) [facility] Narrative* Problem Noted Date Diagnosed Date Resolved Date Nuclear senile cataract of right eye 09/08/2022 09/08/2022 Nuclear sclerotic cataract of left eye 08/18/2022 08/18/2022 Abdominal discomfort 01/18/2022 022 Nuclear senile cataract of both eyes 11/05/2021 09/09/2022 Microscopic hematuria 03/08/20212021 Weakness 05/05/2020 06/15/2020 Decreased mobility and endurance 05/05/2020 06/15/2020 documented as of this encounter (statuses as of 11/05/2022) [facility] Narrative* Problem Noted Date Diagnosed Date Resolved Date Nuclear senile cataract of right eye 09/08/2022 09/08/2022 Nuclear sclerotic cataract of left eye 08/18/2022 08/18/2022 Abdominal discomfort 01/18/2022 022 Nuclear senile cataract of both eyes 11/05/2021 09/09/2022 Microscopic hematuria 03/08/20212021 Weakness 05/05/2020 06/15/2020 Decreased mobility and endurance 05/05/2020 06/15/2020 documented as of this encounter (statuses as of 11/07/2022) [facility] Narrative* Problem Noted Date Diagnosed Date Resolved Date Nuclear senile cataract of right eye 09/08/2022 09/08/2022 Nuclear sclerotic cataract of left eye 08/18/2022 08/18/2022 Abdominal discomfort 01/18/2022 022 Nuclear senile cataract of both eyes 11/05/2021 09/09/2022 Microscopic hematuria 03/08/20212021 Weakness 05/05/2020 06/15/2020 Decreased mobility and endurance 05/05/2020 06/15/2020 documented as of this encounter (statuses as of 11/07/2022) [facility]arrative* Problem Noted Date Diagnosed Date Resolved Date Nuclear senile cataract of right eye 09/08/2022 09/08/2022 Nuclear sclerotic cataract of left eye 08/18/2022 08/18/2022 Abdominal discomfort 01/18/2022 022 Nuclear senile cataract of both eyes 11/05/2021 09/09/2022 Microscopic hematuria 03/08/20212021 Weakness 05/05/2020 06/15/2020 Decreased mobility and endurance 05/05/2020 06/15/2020 documented as of this encounter (statuses as of 11/10/2022) [facility]arrative* Problem Noted Date Diagnosed Date Resolved Date Nuclear senile cataract of right eye 09/08/2022 09/08/2022 Nuclear sclerotic cataract of left eye 08/18/2022 08/18/2022 Abdominal discomfort 01/18/2022 022 Nuclear senile cataract of both eyes 11/05/2021 09/09/2022 Microscopic hematuria 03/08/20212021 Weakness 05/05/2020 06/15/2020 Decreased mobility and endurance 05/05/2020 06/15/2020 documented as of this encounter (statuses as of 11/16/2022) [facility]arrative* Problem Noted Date Diagnosed Date Resolved Date Nuclear senile cataract of right eye 09/08/2022 09/08/2022 Nuclear sclerotic cataract of left eye 08/18/2022 08/18/2022 Abdominal discomfort 01/18/2022 022 Nuclear senile cataract of both eyes 11/05/2021 09/09/2022 Microscopic hematuria 03/08/20212021 Weakness 05/05/2020 06/15/2020 Decreased mobility and endurance 05/05/2020 06/15/2020 documented as of this encounter (statuses as of 11/22/2022) [facility] History of Past illness Narrative* Problem Noted Date Diagnosed Date Resolved Date Nuclear senile cataract of right eye 09/08/2022 09/08/2022 Nuclear sclerotic cataract of left eye 08/18/2022 08/18/2022 Abdominal discomfort 01/18/2022 022 Nuclear senile cataract of both eyes 11/05/2021 09/09/2022 Microscopic hematuria 03/08/20212021 Weakness 05/05/2020 06/15/2020 Decreased mobility and endurance 05/05/2020 06/15/2020 documented as of this encounter (statuses as of 11/25/2022) [facility] History of Past illness Narrative* Problem Noted Date Diagnosed Date Resolved Date Nuclear senile cataract of right eye 09/08/2022 09/08/2022 Nuclear sclerotic cataract of left eye 08/18/2022 08/18/2022 Abdominal discomfort 01/18/2022 022 Nuclear senile cataract of both eyes 11/05/2021 09/09/2022 Microscopic hematuria 03/08/20212021 Weakness 05/05/2020 06/15/2020 Decreased mobility and endurance 05/05/2020 06/15/2020 documented as of this encounter (statuses as of 2022) [facility] History of Past illness Narrative* Problem Noted Date Diagnosed Date Resolved Date Nuclear senile cataract of right eye 09/08/2022 09/08/2022 Nuclear sclerotic cataract of left eye 08/18/2022 08/18/2022 Abdominal discomfort 01/18/2022 022 Nuclear senile cataract of both eyes 11/05/2021 09/09/2022 Microscopic hematuria 03/08/20212021 Weakness 05/05/2020 06/15/2020 Decreased mobility and endurance 05/05/2020 06/15/2020 documented as of this encounter (statuses as of 2022) [facility] History of Past illness Narrative* Problem Noted Date Diagnosed Date Resolved Date Nuclear senile cataract of right eye 09/08/2022 09/08/2022 Nuclear sclerotic cataract of left eye 08/18/2022 08/18/2022 Abdominal discomfort 01/18/2022 022 Nuclear senile cataract of both eyes 11/05/2021 09/09/2022 Microscopic hematuria 03/08/20212021 Weakness 05/05/2020 06/15/2020 Decreased mobility and endurance 05/05/2020 06/15/2020 documented as of this encounter (statuses as of 12/24/2022) [facility] History of Past illness Narrative* Problem Noted Date Diagnosed Date Resolved Date Nuclear senile cataract of right eye 09/08/2022 09/08/2022 Nuclear sclerotic cataract of left eye 08/18/2022 08/18/2022 Abdominal discomfort 01/18/2022 022 Nuclear senile cataract of both eyes 11/05/2021 09/09/2022 Microscopic hematuria 03/08/20212021 Weakness 05/05/2020 06/15/2020 Decreased mobility and endurance 05/05/2020 06/15/2020 documented as of this encounter (statuses as of 12/24/2022) [facility] History of Past illness Narrative* Problem Noted Date Diagnosed Date Resolved Date Nuclear senile cataract of right eye 09/08/2022 09/08/2022 Nuclear sclerotic cataract of left eye 08/18/2022 08/18/2022 Abdominal discomfort 01/18/20222 022 Nuclear senile cataract of both eyes 11/05/2021 09/09/2022 Microscopic hematuria 03/08/20212021 Weakness 05/05/2020 06/15/2020 Decreased mobility and endurance 05/05/2020 06/15/2020 documented as of this encounter (statuses as of 01/07/2023) [facility] History of Past illness Narrative* Problem Noted Date Diagnosed Date Resolved Date Nuclear senile cataract of right eye 09/08/2022 09/08/2022 Nuclear sclerotic cataract of left eye 08/18/2022 08/18/2022 Abdominal discomfort 01/18/2022 022 Nuclear senile cataract of both eyes 11/05/2021 09/09/2022 Microscopic hematuria 03/08/20212021 Weakness 05/05/2020 06/15/2020 Decreased mobility and endurance 05/05/2020 06/15/2020 documented as of this encounter (statuses as of 01/24/2023) [facility] History of Past illness Narrative* Problem Noted Date Diagnosed Date Resolved Date Nuclear senile cataract of right eye 09/08/2022 09/08/2022 Nuclear sclerotic cataract of left eye 08/18/2022 08/18/2022 Abdominal discomfort 01/18/2022 022 Nuclear senile cataract of both eyes 11/05/2021 09/09/2022 Microscopic hematuria 03/08/20212021 Weakness 05/05/2020 06/15/2020 Decreased mobility and endurance 05/05/2020 06/15/2020 documented as of this encounter (statuses as of 01/27/2023) [facility] History of Past illness Narrative* Problem Noted Date Diagnosed Date Resolved Date Nuclear senile cataract of right eye 09/08/2022 09/08/2022 Nuclear sclerotic cataract of left eye 08/18/2022 08/18/2022 Abdominal discomfort 01/18/2022 022 Nuclear senile cataract of both eyes 11/05/2021 09/09/2022 Microscopic hematuria 03/08/20212021 Weakness 05/05/2020 06/15/2020 Decreased mobility and endurance 05/05/2020 06/15/2020 documented as of this encounter (statuses as of 03/07/2023) [facility] History of Past illness Narrative* Problem Noted Date Diagnosed Date Resolved Date Nuclear senile cataract of right eye 09/08/2022 09/08/2022 Nuclear sclerotic cataract of left eye 08/18/2022 08/18/2022 Abdominal discomfort 01/18/2022 022 Nuclear senile cataract of both eyes 11/05/2021 09/09/2022 Microscopic hematuria 03/08/20212021 Weakness 05/05/2020 06/15/2020 Decreased mobility and endurance 05/05/2020 06/15/2020 documented as of this encounter (statuses as of 05/12/2023) [facility] History of Past illness Narrative* Problem Noted Date Diagnosed Date Resolved Date Nuclear senile cataract of right eye 09/08/2022 09/08/2022 Nuclear sclerotic cataract of left eye 08/18/2022 08/18/2022 Abdominal discomfort 01/18/2022 022 Nuclear senile cataract of both eyes 11/05/2021 09/09/2022 Microscopic hematuria 03/08/20212021 Weakness 05/05/2020 06/15/2020 Decreased mobility and endurance 05/05/2020 06/15/2020 documented as of this encounter (statuses as of 05/19/2023) [facility] History of Past illness Narrative* Problem Noted Date Diagnosed Date Resolved Date Nuclear senile cataract of right eye 09/08/2022 09/08/2022 Nuclear sclerotic cataract of left eye 08/18/2022 08/18/2022 Abdominal discomfort 01/18/2022 022 Nuclear senile cataract of both eyes 11/05/2021 09/09/2022 Microscopic hematuria 03/08/20212021 Weakness 05/05/2020 06/15/2020 Decreased mobility and endurance 05/05/2020 06/15/2020 documented as of this encounter (statuses as of 05/23/2023) [facility] History of Past illness Narrative* Problem Noted Date Diagnosed Date Resolved Date Nuclear senile cataract of right eye 09/08/2022 09/08/2022 Nuclear sclerotic cataract of left eye 08/18/2022 08/18/2022 Abdominal discomfort 01/18/2022 022 Nuclear senile cataract of both eyes 11/05/2021 09/09/2022 Microscopic hematuria 03/08/20212021 Weakness 05/05/2020 06/15/2020 Decreased mobility and endurance 05/05/2020 06/15/2020 documented as of this encounter (statuses as of 05/23/2023) [facility] Miscellaneous Notes* Telephone Encounter - Simeon Vásquez - 09/05/2022 10:03 AM EDT Called and informed patient to arrive at [address] [place] [address], [place] [address] at 11:45 am for 09/08/22 surgerywith Renetta Gannon MD. Explained that patient is not to arrive any earlier. Also reminded patient to refrain from eating or drinking for 8 hours prior to arrival for surgery, except for up to 12 oz of clear liquids up until 09:45 am, and to begin eyedrops in the right eye on09/06/22. Informed that [employer] and text messages do not contact them with the arrival time for surgery. If they receive a message from [employer], or a text to confirm an appointment, they are to make sure of the date for the appointment. Patient's sister states understanding and is agreeable. documented [facility] History of Present illness Narrative* Binh Lake DO - 09/02/2022 1:31 PM EDT HPI: José Manuel Ashton is a 61 year old male who presents today follow-up of left hip pain and MRI results. He continues to be in intense pain. He is in pain 24/7. The pain is in his low back constantly as well as intense sharp pain in the groin that becomes very sharp and has intense snaps with certain movements especially weightbearing and transitions. He has difficulty and instability with walkingand is unable to straighten up to walk straight. He uses a cane for for extra stability but also because he has chronic dizziness issues. MRI shows: 1. No evidence of a left acetabular labral tear. 2. No evidence of tendon tear or tendinosis. 3. Mild osteoarthritis of both hips with interval development of subchondral cystic change at the anterior superior acetabulum on both sides. No fracture, stress reaction or AVN. 4. Enlarged heterogeneous prostate gland. 5. Edema within the right lower posterior paraspinal musculature which may represent strain or possibly myositis. 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 Gabby ARCE CATARACT EXTRACAP,INSERT LENS Left 08/18/2022 Social History Tobacco Use Smoking status: Former Packs/day: 1.00 Years: 37.00 Pack years: 37.00 Types: Cigarettes Quit date: 04/03/2010 Years since quittin.4 Smokeless tobacco: Never Tobacco comments: Smokes [place] Vaping Use Vaping Use: Never used Substance Use Topics Alcohol use: Not Currently Drug use: Yes Types: Marijuana Comment: daily Current Outpatient Medications Medication Sig rosuvastatin (CRESTOR) 5 mg tablet TAKE 1 TABLET BY MOUTH DAILY AT BEDTIME prednisoLONE acetate (PRED FORTE) 1 % ophthalmic suspension Use 1 Drop in the left eye four times daily. keTORolac (ACULAR) 0.5 % ophthalmic solution Use 1 Drop in the left eye four times daily. ciprofloxacin HCl (CILOXAN) 0.3 % ophthalmic solution Use 1 Drop in the left eye four times daily. cholecalciferol, Vitamin D3, (VITAMIN D3) 1,250 mcg (50,000 unit) cap capsule Take 1 capsule by mouth one time a week. dulaglutide (TRULICITY) 4.5 mg/0.5 mL pen injector Inject 4.5 mg subcutaneously one time a week. lisinopril (ZESTRIL) 5 mg tablet Take 1.5 tablets by mouth once daily. Blood-Glucose Meter monitoring kit For monitoring sugars 3x/day (patient on insulin) Lancets lancets Recommend check blood sugar once daily, rotate times. Sometimes check in the morning sometimes 2 hours after meals, sometimes at bedtime. Please bring in blood sugar log and have available for review. alcohol swabs (ALCOHOL PREP PADS) Apply 1 application to affected area as directed. Recommend checkblood sugar once daily, rotate times. Sometimes check in the morning sometimes 2 hours after meals,sometimes at bedtime. Please bring in blood sugar log and have available for review. insulin glargine (LANTUS SOLOSTAR, BASAGLAR KWIKPEN) 100 unit/mL (3 mL) Inject 26 Units subcutaneously daily at bedtime. pioglitazone (ACTOS) 45 mg tablet Take 1 tablet by mouth once daily. tamsulosin (FLOMAX) 0.4 mg Take 1 capsule by mouth once daily. ondansetron (ZOFRAN) 4 mg tablet Take by mouth every 8 hours as needed for nausea/vomiting. Insulin [place], Disposable, (COMFORT EZ PEN NEEDLES) 29 gauge x 1/2" 1 Each once daily. blood sugar diagnostic (BLOOD GLUCOSE TEST) test strip 3x/day pantoprazole DR (PROTONIX) 40 mg tablet Take 1 tablet by mouth DAILY (6 AM). No current facility-administered medications for this visit. ALLERGIES Allergen Reactions Penicillins Unknown Pt states he thinks he had a reaction as a child REVIEW OF SYSTEMS: GENERAL: Well developed, well nourished. No acute distress PAIN: Pain 10/10 CARDIOVASCULAR: htn MSK: unsteady gait SKIN: Negative for lesions, rash, itching, metal sensitivity NEURO: Numbness/tingling of extremties ENDOCRINE: Positive for diabetic associated symptoms HEMATOLOGY: Negative for excessive bleeding, clots, bleeding disorders. Resp 20 Ht 5' 10" (1.78m) Wt 254 lb (115.2kg) BMI 36.45 kg/(m^2). EXAM: Examination of the left hip reveals continued significant weakness with 3/5 strength with active hip flexion. Severe sharp pain with any active or passive hip flexion or rotational movements. Severe sharp pain on the left leg with straight leg raises of the left side and slump testing. There is 3-5/5 strength with left ankle dorsiflexion and with knee extension on the left side. There is loss of sensation both legs and feet and this has been a chronic issue. Severe tenderness with palpation of the paraspinal muscles in the L3-S1 area on both sides. Antalgic flexed lumbar spine with gaitanalysis. Normal pulses ASSESSMENT: (M54.16) Lumbar back pain with radiculopathy affecting lower extremity (primary encounter diagnosis) (M25.552, G89.29) Chronic left hip pain (M48.062) Spinal stenosis of lumbar region with neurogenic claudication (M54.16) Lumbar radiculopathy (M54.42, G89.29) Chronic bilateral low back pain with left-sided sciatica PLAN: José Manuel continues to struggle with constant pain since a twisting leg injury where he fell out ofhis truck with his foot stuck in the truck. His MRI of the left hip did not show any obvious reasonfor his intense pain and mechanical symptoms with active movements. There is no popping. He has been evaluated for hernias in the past and found to have none. Intra-articular hip injections have not helped in the past. At this time with minimal abnormalities on his hip MRI we have to consider that lumbar issues are a source of this pain especially with his history of multiple bulged disks. He hassignificant weakness and neurologic deficits of the left leg relative to the right. This has been achronic issue and is starting to have more more dysfunction. I do worry about spinal stenosis issues and developing neurogenic claudication with his severely dysfunctional gait and gait instability. I have ordered a lumbar MRI for further evaluation and to determine appropriate neck step in treatments. Have also referred him to see the spine and pain [place] to discuss possible medications to help his intense chronic pain. I did give him 1 week of Percocet to try to help this pain. Total of half hour spent with this patient of which greater than 50% time spent in direct patient contact and coordination of care. Binh Lake DO documented in this encounterVan [facility] History of Present illness Narrative* [place] RT(R) - 08/30/2022 8:20 AM EDT Radiology Service Progress Note PATIENT NAME: José Manuel Ashton DATE OF SERVICE: August 30, 2022 TIME: 10:19 AM PATIENT IDENTITY VERIFICATION COMPLETED USING TWO (2) IDENTIFIERS: Name and Date of confirmedby patient verbally and Name and Date of confirmed by identification band. FALL SCREENING: Has the patient had 2 falls in the last year or 1 fall with injury or currently using an Ambulatory Assistive Device (Walker, Cane, Wheelchair, Crutches, etc.)? No PATIENT GENDER DATA: Male PATIENT RELEVANT IMPLANT DATA REVIEWED: Yes RADIOLOGY DEPARTMENT: MR; Exam(s) Completed: Lower MSK: Left hip arthrogram PERIPHERAL IV DATA: Not applicable SIGNED BY: RT Ai(R) August 30, 2022 10:19 AM documented in this encounterVan [facility]05-[facility] Surgical operation note* Brief Op Note - Lamonte Curtis MD, MD - 08/30/2022 8:17 AM EDT S/p successful left hip injection for magnetic resonance arthrogram. EBL < 1 cc. No immediate complication. documented in this encounterVan [facility] History of Past illness Narrative* Problem Noted Date Resolved Date Nuclear sclerotic cataract of left eye 3 08/18/2022 Abdominal discomfort 01/18/2022 01/19/2022 Microscopic hematuria 03/08/2021 01/17/2022 Weakness 05/05/2020 06/15/2020 Decreased mobility and endurance 05/05/2020 06/15/2020 documented as of this encounter (statuses as of 08/31/2022) [facility] History of Past illness Narrative* Problem Noted Date Resolved Date Nuclear sclerotic cataract of left eye 3 08/18/2022 Abdominal discomfort 01/18/2022 01/19/2022 Microscopic hematuria 03/08/2021 01/17/2022 Weakness 05/05/2020 06/15/2020 Decreased mobility and endurance 05/05/2020 06/15/2020 documented as of this encounter (statuses as of 08/31/2022) [facility] of Past illness Narrative* Problem Noted Date Resolved Date Nuclear sclerotic cataract of left eye 3 08/18/2022 Abdominal discomfort 01/18/2022 01/19/2022 Microscopic hematuria 03/08/2021 01/17/2022 Weakness 05/05/2020 06/15/2020 Decreased mobility and endurance 05/05/2020 06/15/2020 documented as of this encounter (statuses as of 08/31/2022) [facility] of Past illness Narrative* Problem Noted Date Resolved Date Nuclear sclerotic cataract of left eye 3 08/18/2022 Abdominal discomfort 01/18/2022 01/19/2022 Microscopic hematuria 03/08/2021 01/17/2022 Weakness 05/05/2020 06/15/2020 Decreased mobility and endurance 05/05/2020 06/15/2020 documented as of this encounter (statuses as of 09/02/2022) [facility] of Past illness Narrative* Problem Noted Date Resolved Date Nuclear sclerotic cataract of left eye 3 08/18/2022 Abdominal discomfort 01/18/2022 01/19/2022 Microscopic hematuria 03/08/2021 01/17/2022 Weakness 05/05/2020 06/15/2020 Decreased mobility and endurance 05/05/2020 06/15/2020 documented as of this encounter (statuses as of 09/02/2022) [facility] of Past illness Narrative* Problem Noted Date Resolved Date Nuclear sclerotic cataract of left eye 3 08/18/2022 Abdominal discomfort 01/18/2022 01/19/2022 Microscopic hematuria 03/08/2021 01/17/2022 Weakness 05/05/2020 06/15/2020 Decreased mobility and endurance 05/05/2020 06/15/2020 documented as of this encounter (statuses as of 09/05/2022) [facility] Miscellaneous Notes* Telephone Encounter - Meche Rowland - 08/15/2022 11:21 AM EDT Called and informed patient to arrive at [address] [place] [address] at 7:40 am for 08/18/22 surgery with Renetta Gannon MD. Also reminded patient to refrain from eating or drinking for 8 hours prior to arrival for surgery, and to begin eyedrops in the left eye on 08/16/22. Patient states understanding and is agreeable. documented in this encounterVan [facility]05[facility] History of Present illness Narrative* Belgica Roma Je, DO - 08/12/2022 3:46 PM EDT Images from the original note were not included. [facility] Belgica L Je [address] [place] [address] [facility] Visit Date: August 12, 2022 Mr.Jim Najma Ashton Date of : 1960 MRN/E #: [id number] SUBJECTIVE: José Manuel Ashton is a 61 year old male here today for an annual physical. I reviewed his past medical,surgical, social, and family histories today and updated chart. Allergies, chronic medications, andsupplements were also reviewed and his list in the chart is now up to date. Patient is here for annual physical.Pt here with sister Janell Patient has history of hypertension and lower extremity edema.. BP today 156/92. BP during last office visit was 136/84. during June 2022. Pt doesn't check BP at home, doesn't want monitor. Patient is on lisinopril 5 mg and is tolerating medication well.Pt indicates been angry all week. States fine then just snaps, wonders about bipolar . Recheck BP today 131/84. Patient does have history of diabetes and noncompliance with diabetic medications. Patient does have history of DKA from medication noncompliance. Patient sees endocrinology. Patient does not check his blood sugar at home.. Patient's A1c was 9.7 during May 2022.Patient is being prescribed Lantus 26 units, Trulicity 4.5 milligrams weekly, takes on Monday., Actos 45 mg with lunch. Patient does have history of microalbuminuria Patient has history of hyperlipidemia.. Cholesterol was 296 LDL 1 78 during March 2022. Patient admitted previously that he was not taking Lipitor 40 mg and never picked up his prescription for Crestor. Patient has history of hyponatremia. Sodium was 134 during July 2021 Patient has history of elevated alkaline phosphatase it was 143 during July 2021 Patient does have history of vitamin D deficiency Patient does have history of MEKHI. It was recommended patient schedule Pap titration previously Pap titration is pending from October 2021 Patient does have history of CKD stage III A.. Thought to be due to uncontrolled DM, hypertension and BPH. Patient does see nephrology Patient's BMI is 36.45. Patient has been losing weight Patient had indicated previously that he needed to get his A1c down to 8 in order to do cataract surgery bilaterally. Patient had indicated previously has surgery scheduled 02/2022.. Patient diagnosed as glaucoma suspect bilaterally, with mild nonproliferative DR bilaterally with macular edema and nuclear senile cataracts bilaterally.. Reviewing chart eye surgery scheduled for September 08, 2022 for right cataract. Pt scheduled 08/18/for left cataract surgery per sis. Pt sis indicates has to be cleared first. Patient does have history of CKD stage III A.. Thought to be due to uncontrolled DM, hypertension and BPH. Patient does see nephrology Patient does have history of BPH, hematuria and nocturia. Patient sees urology Patient does have history of marijuana use. Pt smokes 1-joints per day, use to smoke 3-5 daily. Hasbeen cutting down and cut joints in half. Neighbor not happy. Has been smoking MJ greater than 50 yrs. Pt recalls being told about MJ and NV previously.Pt smokes marijuana daily, unsure how much, lost track this week. Does that because of pain. Doesn't want to take pain meds or heroin. 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 Patient also has history of invasive adenocarcinoma of the rectum.Patient is status post rectal surgery November 24, 2020. Patient does see general surgeon and oncologist. Patient is being prescribed Protonix 40 mg as well as Zofran 4 mg. Pt to schedule with general surgeon.. Patient's last colonoscopy With Dr. Ahmadi, 1 yr ago per patient. Unable to find in chart.. .Per sis tried to make appointment, they were to call back, never heard. Pt sis indicates Dr. Therese cannon ordered groin MRI. Patient does see psychiatry for anxiety and depression. Per health maintenance COVID and pneumococcal vaccines recommended.COVID-vaccine is not currently available in this clinic. Pt agrees. Per health maintenance diabetic foot exam recommended His medications were reviewed today and his list is now up to date. He is compliant on taking his medications :Yes sometimes, except when pissed off doesn't take them He is tolerating his medication(s) without side effects: Yes He is following an appropriate diet for his medical problems: Yes He is getting some exercise in? Yes COVID-19 VACCINE(1) Never done PNEUMOCOCCAL(1 - PCV) Never done DIABETIC FOOT EXAM due on 06/02/2022 COLORECTAL CANCER SCREENING due on 10/05/2022 HBA1C due on 09/29/2022 BP CONTROLLED (<130/80) due on 10/05/2022 URINE ALBUMIN:CREATININE RATIO due on 01/23/2023 HEMOGLOBIN/HEMATOCRIT due on 06/02/2023 LUNG CANCER SCREENING due on 06/23/2023 LDL CHOLESTEROL due on 06/28/2023 SERUM CREATININE due on 06/28/2023 ANNUAL PCP TEAM CHRONIC DISEASE VISIT due on 06/30/2023 DILATED RETINAL EXAM due on 07/15/2023 PROSTATE CANCER SCREENING DISCUSSION due on 01/19/2027 DTAP,TDAP,TD(2 - Td or Tdap) due on 10/19/2030 INFLUENZA Completed HEPATITIS C SCREENING Completed HIV SCREENING Completed SHINGRIX VACCINE Completed No visits with results within 1 Day(s) from this visit. Latest known visit with results is: Office Visit on 06/29/2022 Component Date Value Ref Range Status Hemoglobin A1C (POCT) 06/29/2022 8.9 (A) 4.2 - 5.6 % Final Comment: Location:[facility] [place], [address] [place] [address], [facility] Point of care (POC) Hemoglobin A1c (HGBA1C) testing is intended to assess glucose control and provide a management tool for patients known to have diabetes and their healthcare providers. Target HGBA1C levels may depend on specific clinical circumstances. POC HGBA1C is not intended for use as a diagnostic or screening test; laboratory-based testing should be used for diagnostic purposes. The following information is supplemental and may not be applicable to specific diabetes management situations: The POC device reliability engineer provides a normal range of 4.2% to 6.5% for the HGBA1C POC test. However, the [place] [employer] guidelines indicate that patients with HGBA1C in the range of 5.7% to 6.4% are at increased risk for development of diabetes and that intervention by lifestyle modification may be beneficial. A HGBA1C level greater than or equal to 6.5% is considered diagnostic of diabetes, pending confirmatory testing. Use of HGBA1C testing to evaluate glucose control may not be appropriate for patients with hemoglobin variants or other conditions (e.g. anemia) that alter red blood cell lifespan. 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 Ahmadi Social History Tobacco Use Smoking status: Former Packs/day: 1.00 Years: 37.00 Pack years: 37.00 Types: Cigarettes Quit date: 04/03/2010 Years since quittin.3 Smokeless tobacco: Never Tobacco comments: Smokes [place] Vaping Use Vaping Use: Never used Substance Use Topics Alcohol use: Not Currently Drug use: Yes Types: Marijuana Comment: daily ALLERGIES Allergen Reactions Penicillins Unknown Pt states he thinks he had a reaction as a child Family History Problem Relation Age of Onset other (Heart stroke) Mother other (Glaucoma lung cancer) Father Leukemia Sister Glaucoma Sister Glaucoma Brother Current Outpatient Medications Medication Sig Dispense Refill rosuvastatin (CRESTOR) 5 mg tablet TAKE 1 TABLET BY MOUTH DAILY AT BEDTIME 30 tablet 1 prednisoLONE acetate (PRED FORTE) 1 % ophthalmic suspension Use 1 Drop in the left eye four times daily. 10 mL 1 keTORolac (ACULAR) 0.5 % ophthalmic solution Use 1 Drop in the left eye four times daily. 5 mL 1 ciprofloxacin HCl (CILOXAN) 0.3 % ophthalmic solution Use 1 Drop in the left eye four times daily. 5 mL 1 cholecalciferol, Vitamin D3, (VITAMIN D3) 1,250 mcg (50,000 unit) cap capsule Take 1 capsule by mouth one time a week. 12 capsule 0 dulaglutide (TRULICITY) 4.5 mg/0.5 mL pen injector Inject 4.5 mg subcutaneously one time a week. 12Each 0 lisinopril (ZESTRIL) 5 mg tablet Take 1.5 tablets by mouth once daily. 45 tablet 1 Blood-Glucose Meter monitoring kit For monitoring sugars 3x/day (patient on insulin) 1 Each 1 Lancets lancets Recommend check blood sugar once daily, rotate times. Sometimes check in the morning sometimes 2 hours after meals, sometimes at bedtime. Please bring in blood sugar log and have available for review. 100 Each 11 alcohol swabs (ALCOHOL PREP PADS) Apply 1 application to affected area as directed. Recommend checkblood sugar once daily, rotate times. Sometimes check in the morning sometimes 2 hours after meals,sometimes at bedtime. Please bring in blood sugar log and have available for review. 100 Each 3 insulin glargine (LANTUS SOLOSTAR, BASAGLAR KWIKPEN) 100 unit/mL (3 mL) Inject 26 Units subcutaneously daily at bedtime. 6 Each 1 pioglitazone (ACTOS) 45 mg tablet Take 1 tablet by mouth once daily. 90 tablet 3 tamsulosin (FLOMAX) 0.4 mg Take 1 capsule by mouth once daily. 90 capsule 0 ondansetron (ZOFRAN) 4 mg tablet Take by mouth every 8 hours as needed for nausea/vomiting. pantoprazole DR (PROTONIX) 40 mg tablet Take 1 tablet by mouth DAILY (6 AM). 30 tablet 2 Insulin [place], Disposable, (COMFORT EZ PEN NEEDLES) 29 gauge x 1/2" 1 Each once daily. 100 Each 3 blood sugar diagnostic (BLOOD GLUCOSE TEST) test strip 3x/day 100 Strip 11 No current facility-administered medications for this visit. Review of Systems Constitutional: Positive for weight loss. Negative for chills, diaphoresis, fever and malaise/fatigue. Respiratory: Negative for shortness of breath. Cardiovascular: Negative for chest pain and leg swelling. Gastrointestinal: Negative for abdominal pain, nausea and vomiting. Genitourinary: Negative for dysuria. Musculoskeletal: Negative for joint pain. Skin: Negative for rash. Neurological: Negative for dizziness and headaches. Endo/Heme/Allergies: Negative for environmental allergies. Psychiatric/Behavioral: Negative for depression. BP 156/92 Pulse 98 Ht 5' 10" (1.78m) Wt 254 lb (115.2kg) BMI 36.45 kg/(m^2). Physical Exam HENT: Head: Normocephalic and atraumatic. Right Ear: Tympanic membrane, ear canal and external ear normal. Left Ear: Tympanic membrane, ear canal and external ear normal. Nose: Nose normal. Mouth/Throat: Pharynx: Uvula midline. Eyes: General: Lids are normal. Conjunctiva/sclera: Conjunctivae normal. Pupils: Pupils are equal, round, and reactive to light. Neck: Trachea: Trachea normal. Cardiovascular: Rate and Rhythm: Normal rate and regular rhythm. Pulses: Normal pulses. Heart sounds: Normal heart sounds. Pulmonary: Effort: Pulmonary effort is normal. Breath sounds: Normal breath sounds. Abdominal: General: Bowel sounds are normal. Palpations: Abdomen is soft. Tenderness: There is no abdominal tenderness. There is no guarding. Musculoskeletal: Cervical back: Neck supple. Right lower le+ Pitting Edema present. Left lower le+ Pitting Edema present. Lymphadenopathy: Cervical: No cervical adenopathy. Skin: General: Skin is warm and dry. Neurological: Mental Status: He is alert and oriented to person, place, and time. Psychiatric: Mood and Affect: Affect normal. Feet:Shoes and socks removed, No deformities, ulcers, calluses, normal distal pulses, not sensitiveto monofilament BL, and nails notable for Crumbly, Deformed, Hypertrophic, or Yellowish New medication(s) prescribed today: Plan will be the labs are as Counseling completed in adopting health behaviors such as avoiding excessive alcohol use, avoid tobacco use, improve nutrition, and engage in physical activities. Discussed male health maintenance guidelines per standard protocol. Copy of written care plan, clinical summary, treatment plan, new medications, goals, and self management requirements were given to patient. Assesment/Plan: ASSESSMENT/PLAN: 1. Encounter for annual physical exam - ICD9: V70.0, ICD10: Z00.00 (primary diagnosis) - Counseled on healthy diet and regular exercise - Discussed need for and benefit of weight loss. BMI 36.45 kg/(m^2) 2. Hypertension, essential - ICD9: 401.9, ICD10: I10 - suboptimal control - Continue current medication(s) - Encouraged dietary sodium restriction/DASH diet - Recommended regular aerobic exercise. - Recommend home blood pressure monitoring, to bring results in on next visit - Discussed need and benefit for weight loss. - Follow up in 1 month for BP recheck. - Goal of BP <130/80 - COMP METABOLIC PANEL - ECG B/O WO INTERP (MED OFFICE) EKG shows NSR with heart rate of 97, looks similar to previous EKG, patient informed of results 3. Bilateral leg edema - ICD9: 782.3, ICD10: R60.0 It was recommended that patient decrease sodium in the diet, drink plenty of non-caffeinated fluids, and elevate their lower extremities while seated. 4. Mixed hyperlipidemia - ICD9: 272.2, ICD10: E78.2 - to be determined upon return of lab results - Encouraged following a low fat, low cholesterol diet. - Discussed the benefits of regular aerobic exercise and weight loss. - LIPID PANEL BASIC 5. Diabetes mellitus due to underlying condition, uncontrolled, with hyperglycemia (HCC) - ICD9: 249.81, 790.29, ICD10: E08.65 - HGB A1C - ALBUMIN/CREAT RATIO RND UR 6. H/O medication noncompliance - ICD9: V15.81, ICD10: Z91.148 7. Microalbuminuria - ICD9: 791.0, ICD10: R80.9 Continue lisinopril 5 mg 8. Hyponatremia - ICD9: 276.1, ICD10: E87.1 - COMP METABOLIC PANEL 9. Vitamin D deficiency - ICD9: 268.9, ICD10: E55.9 - VITAMIN D 25 HYDROXY 10. MEKHI (obstructive sleep apnea) - ICD9: 327.23, ICD10: G47.33 Patient noncompliant with CPAP 11. Obesity, Class II, BMI 35-39.9 - ICD9: 278.00, ICD10: E66.9 Stable - Behavioral intervention 12. Stage 3a chronic kidney disease (HCC) - ICD9: 585.3, ICD10: N18.31 - Following with nephrology: Yes - Follow up with nephrology 13. History of BPH - ICD9: V13.89, ICD10: Z87.438 Follow-up with urology 14. Marijuana use - ICD9: 305.20, ICD10: F12.90 Uses on a daily basis 15. 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 - ICD9: 530.85, ICD10: K22.719 Follow-up with general surgeon 16. Malignant neoplasm of rectum (HCC) - ICD9: 154.1, ICD10: C20 Follow-up with general surgeon 17. Anxiety and depression - ICD9: 300.00, 311, ICD10: F41.9, F32.A Recommend patient follow-up with psychiatry 18. 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 Nuclear senile cataract of both eyes - ICD9: 366.16, ICD10: H25.13 Follow-up with ophthalmology Patient to schedule preop H&P 20. Screening for prostate cancer - ICD9: V76.44, ICD10: Z12.5 - Counseled on healthy diet and regular exercise - PSA/PROSTSPECAG SCRN 21. Screening for thyroid disorder - ICD9: V77.0, ICD10: Z13.29 - TSH BLD 22. Screening for deficiency anemia - ICD9: V78.1, ICD10: Z13.0 - CBC + DIFF 23. Encounter for immunization - ICD9: V03.89, ICD10: Z23 - PNEUMOCOCCAL VACCINE (PNEUMOVAX 23) 24. Diabetic peripheral neuropathy associated with type 2 diabetes mellitus (HCC) - ICD9: 250.60, 357.2, ICD10: E11.42 Foot care Briefly discussed in layman's terms - CONSULT TO PODIATRY 25. Onychomycosis - ICD9: 110.1, ICD10: B35.1 - CONSULT TO PODIATRY Belgica Vega DO Schedule annual physical J August 2022 Schedule preop H & P 1 mos Schedule FU DM,HT N , results If symptoms persist, worsen, or no improvement, patient is to call 911 and/or go to the nearest ED. documented [facility] Miscellaneous Notes* Telephone Encounter - Maria D Pepper - 08/09/2022 1:13 PM EDT Called patient again, left voicemail that he has an appointment tomorrow at 3 pm at the [address] [place] [address] [address] office location and to call [phone] if unable to keep the appointment or if any questions. * Telephone Encounter - Maria D Pepper - 08/09/2022 9:50 AM EDT Attempted to call patient to remind him of eye measurement appointment tomorrow, 08/10/22 at 3:00pm in the [place] office location at [address] [place] [address]. No answer, and unable to leave message, voicemail box full. documented in this encounterVan [facility]04-27-[facility]23 Miscellaneous Notes* Telephone Encounter - Meche Rowland - 07/28/2022 9:03 AM EDT Patient's sister Janell left message in surgery scheduling: Patient is sick and cannot come in todayfor IOL measurements (ascan). Called and spoke with Janell. Rescheduled appointment to 08/10/22 at 3pm. documented in this encounterVan [facility]04-26-2023 Miscellaneous Notes* Telephone Encounter - Meche Rowland - 07/27/2022 10:37 AM EDT Called and confirmed appointment for IOL measurements (ascan) on 07/28/22 at 1:[address] [place] [address], [address]. The pre op history and physical exam has been scheduled for 08/12/22. Advised patient to call us at [phone] if any questions or if unable to keep the appointment. documented in this encounterVan [facility]04-13-2023 Instructions* Patient Instructions* Renetta Gannon MD - 07/14/2022 1:02 PM EDT Drops for Surgery: Polymyxin trimethoprim (clear/white) OR Ciprofloxacin (flores) 1 drop to OPERATIVE EYE 4 x daily (begin 2 days BEFORE surgery, including morning of surgery, and continue AFTER surgery) Prednisolone (pink or white) 1 drop to OPERATIVE EYE 4 x daily (begin 2 days BEFORE surgery, including morning of surgery, and continue AFTER surgery) Ketorolac (rasmussen) 1 drop to OPERATIVE EYE 4 x daily (begin 2 days BEFORE surgery, including morning of surgery, and continue AFTER surgery) Continue to use all glaucoma drops, if applicable, including the morning of surgery documented in this encounterVan [facility]04-13-2023 History of Present illness Narrative* Renetta Gannon MD - 07/14/2022 12:58 PM EDT (E11.1281) Mild nonproliferative diabetic retinopathy of both eyes without macular edema associatedwith type 2 diabetes mellitus (HCC) (primary encounter diagnosis) Comment: Chronically poor control a1c (11-12) although recently better Hemoglobin A1C (POCT) (%) Date Value 06/29/[address] and right eye has extrafoveal exudate Plan: The importance of good blood pressure and blood sugar control were emphasized. The nature of diabetic retinopathy was reviewed. Letter to PCP (H25.13) Cataract, nuclear sclerotic, both eyes Comment: Progressive, myopic shift and PSC. Glasses did not help enough. Vision limited Cataract Presurgical Documentation Cataract: Left eye (OS) then Right eye (OD) Current Visual Acuity Right Eye Distance CC 20/80 Left Eye Distance CC 20/70 Best Corrected Vision Right Eye 20/60 Best Corrected Vision Left Eye 20/60 Glare Testing: N/A Visual Function: José Manuel Forteravisoniya states that the decline in vision from the cataract impedes his abilities as listed in the HPI, as well as other activities of daily living. José Manuel Yao Poli has confirmed that he is no longer able to function adequately on a day-to-day basis because of his current visual condition. Further, it is my medical opinion that the cataract is the primary cause, or at least a significantly contributory cause of his visual dysfunction. With uncomplicated cataract surgery and lens implantation, it is my expectation that his visual function and quality of life will improve, significantly. The risks, benefits, alternatives, personnel and complications of cataract surgery with lens implantation were discussed with José Manuel Ashton in detail. he appeared to understand and asked that I proceed with plans for surgery. Specific considerations reviewed particular to this case: -- guarded prognosis due to uncontrolled DM -- increased risk of infection The patient was offered a [facility]/procedure [facility] facility. The surgeon/proceduralist and patient have discussed in detail the risk of exposure to and/or potential harm posed by the COVID-19 virus with having a surgery/procedure at this time versus the risk of delaying the surgery/pr ocedure. It is not possible to know either the risk of delaying the surgery or procedure or chance of getting an infection with perfect accuracy, but a joint decision was made between the patient andthe surgeon/proceduralist to proceed at this time with the scheduled surgery/procedure as indicatedon the consent form. Surgical plan: OS ---> OD AIM plano OU Toric standard Anesthesia: MAC/topical Contact lens wear: NO Previous refractive surgery: NO Preferred office: [place] Intracameral phenylephrine and vigamox Special notes Brimonidine CALL JANELL [phone] (sister, contact) Drops for Surgery: Polytrim (clear/white) OR Ciprofloxacin (flores) 1 drop to OPERATIVE EYE 4 x daily (begin 2 days BEFORE surgery, including morning of surgery, and continue AFTER surgery) Prednisolone (pink or white) 1 drop to OPERATIVE EYE 4 x daily (begin 2 days BEFORE surgery, including morning of surgery, and continue AFTER surgery) Ketorolac (rasmussen) 1 drop to OPERATIVE EYE 4 x daily (begin 2 days BEFORE surgery, including morning of surgery, and continue AFTER surgery) Continue to use all glaucoma drops, if applicable, including the morning of surgery (H39.4600) Early dry stage nonexudative age-related macular degeneration of both eyes Comment: Mottling, no fluid Plan: Monitor RTC PEIOL OS then OD I have confirmed and edited as necessary the relevant ophthalmic history, ROS, and the neuro exam findings as obtained by others. I have seen and examined this patient. I have discussed the case and the management of this patient's care with the Resident/Fellow/Insulation Mechanic, if applicable. I also have reviewed and agree with the assessment and plan as stated above and agree with all of its relevant components. Renetta Gannon MD July 14, 2022 1:02 PM documented in this encounterVan [facility]03-31-2023 History of Present illness Narrative* Binh Lake, DO - 07/01/2022 1:01 PM EDT HPI: José Manuel Ashton is a 61 year old male who presents today with left groin pain and snapping. Recurrent problem for year. Snapping painful and happened daily. PT Adductor strengthening made pain even worse where it popped then wouldn't go back in. IA steroid injection didn't help at all. Even has a constant dull ache. Also has back pain that radiates down the left leg. But not past the knee. Sharp pain. 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 Ahmadi Social History Tobacco Use Smoking status: Former Packs/day: 1.00 Years: 37.00 Pack years: 37.00 Types: Cigarettes Quit date: 04/03/2010 Years since quittin.2 Smokeless tobacco: Never Tobacco comments: Smokes [place] Vaping Use Vaping Use: Never used Substance Use Topics Alcohol use: Not Currently Drug use: Yes Types: Marijuana Comment: daily Current Outpatient Medications Medication Sig cholecalciferol, Vitamin D3, (VITAMIN D3) 1,250 mcg (50,000 unit) cap capsule Take 1 capsule by mouth one time a week. rosuvastatin (CRESTOR) 5 mg tablet Take 1 tablet by mouth daily at bedtime. dulaglutide (TRULICITY) 4.5 mg/0.5 mL pen injector Inject 4.5 mg subcutaneously one time a week. lisinopril (ZESTRIL) 5 mg tablet Take 1.5 tablets by mouth once daily. Blood-Glucose Meter monitoring kit For monitoring sugars 3x/day (patient on insulin) Lancets lancets Recommend check blood sugar once daily, rotate times. Sometimes check in the morning sometimes 2 hours after meals, sometimes at bedtime. Please bring in blood sugar log and have available for review. alcohol swabs (ALCOHOL PREP PADS) Apply 1 application to affected area as directed. Recommend checkblood sugar once daily, rotate times. Sometimes check in the morning sometimes 2 hours after meals,sometimes at bedtime. Please bring in blood sugar log and have available for review. insulin glargine (LANTUS SOLOSTAR, BASAGLAR KWIKPEN) 100 unit/mL (3 mL) Inject 26 Units subcutaneously daily at bedtime. pioglitazone (ACTOS) 45 mg tablet Take 1 tablet by mouth once daily. tamsulosin (FLOMAX) 0.4 mg Take 1 capsule by mouth once daily. finasteride (PROSCAR) 5 mg tablet Take 1 tablet by mouth once daily. ondansetron (ZOFRAN) 4 mg tablet Take by mouth every 8 hours as needed for nausea/vomiting. Insulin [place], Disposable, (COMFORT EZ PEN NEEDLES) 29 gauge x 1/2" 1 Each once daily. blood sugar diagnostic (BLOOD GLUCOSE TEST) test strip 3x/day pantoprazole DR (PROTONIX) 40 mg tablet Take 1 tablet by mouth DAILY (6 AM). No current facility-administered medications for this visit. ALLERGIES Allergen Reactions Penicillins Unknown Pt states he thinks he had a reaction as a child Resp 18 Ht 5' 10" (1.78m) Wt 260 lb (117.9kg) BMI 37.31 kg/(m^2). EXAM: Examination of the left hip reveals severe sharp pain with endrange internal rotation and external rotation with significant loss of those joint movements compared to the right side. He has significant 3/5 asymmetric strength with left hip flexion and abduction. Very painful hip scour and logroll testing. Very painful groin pain with slump and straight leg raise testing. Normal sensation, reflexes, and pulses ASSESSMENT: (M25.559) Pain in hip (primary encounter diagnosis) (M54.16) Lumbar back pain with radiculopathy affecting lower extremity (M25.552, G89.29) Chronic left hip pain PLAN: José Manuel has chronic left hip pain and very dysfunctional popping daily. While there is some concerns he may have back degenerative disc disease and possible sciatica, the intense snapping demonstrated today is much more concerning for a hip joint dysfunction. Unfortunately the intra-articular injection did not help much. Concerns include large labral tear, significant internal derangement including loose body, and even concerns for significant injury to the hip flexor tendon of the iliopsoas or possibly even iliopsoas bursitis. Since he has failed to improve with conservative care in the past including physical therapy, intra-articular injection, activity modification, and NSAIDs, I have ordered MRI for further evaluation. This will include intra-articular arthrogram for further evaluation of the labrum and internal cartilage. I will see him back after MRI. Total of half hour spent with this patient of which greater than 50% time spent in direct patient contact and coordination of care. Binh Lake DO * Anne Marie Perry - 07/01/2022 12:49 PM EDT REVIEW OF SYSTEMS: GENERAL: Well developed, well nourished. No acute distress PAIN: Pain yes CARDIOVASCULAR: Leg swelling yes MSK: Negative for joint swelling SKIN: Negative for lesions, rash, itching, metal sensitivity NEURO: Numbness/tingling of extremties ENDOCRINE: Positive for diabetic associated symptoms HEMATOLOGY: Negative for excessive bleeding, clots, bleeding disorders. documented in this encounterVan [facility]03-29-2023 History of Present illness Narrative* Belgica Vega, DO - 06/29/2022 4:32 PM EDT Images from the original note were not included. Belgica Vega [address] [facility] [address] [place] [address] Visit Date: June 29, 2022 Mr.Jim Najma Ashton Date of : 1960 MRN/E #: [id number] History of Present Illness José Manuel Ashton is a 61 year old male. Patient presents to the clinic today for follow-up results, diabetes, hypertension HPI Patient here with his Sister Janell Patient has history of hypertension and lower extremity edema.. BP today 136/84. BP during last office visit was 134/85.during May 2022. Pt doesn't check BP at home, doesn't want monitor. Pt indicates been trying to take lisinopril daily. Patient is on lisinopril 5 mg daily. Patient is tolerating medication well, trying to take daily. Recheck BP today is 144/84. Patient had lab June 27, 2022. Vitamin D 15.1 and decreased, TSH 1.47, albumin 3.7 calcium 8.9, glucose 132, creatinine 1.59 and decreased, potassium 4.7 sodium 142, EGFR 49. Cholesterol 250 and decreased, HDL 52 triglycerides 152 LDL 168 Patient does have history of diabetes and noncompliance with diabetic medications. Patient does have history of DKA from medication noncompliance. Patient sees endocrinology. Patient does not check his blood sugar at home.. Patient's A1c was 10.5, glucose 234 during April 2022.Patient is being pre scribed Lantus 26 units, Trulicity 4.5 milligrams weekly, takes on Monday. Patient's dose of Trulicity was increased from 3 to 4.5 mg during last office visit. Pt is taking Actos 45 mg, Pt takes in am or early afternoon. Pt indicates having troubles with meter, got 160-180's. States meter states high and pisses him off. Lot better than 300's.. A1c was 9.7 during May 2022 Patient had indicated previously that he needed to get his A1c down to 8 in order to do cataract surgery bilaterally. Patient had indicated previously has surgery scheduled 02/2022.. Patient diagnosed as glaucoma suspect bilaterally, with mild nonproliferative DR bilaterally with macular edema and nuclear senile cataracts bilaterally.. Reviewing chart eye surgery was canceled by ophthalmology... Per chart review patient is getting prescription for bifocal per telephone note May 05, 2022 Patient has history of hyperlipidemia.. Cholesterol was 296 LDL 1 78 during March 2022. Patient admitted previously that he was not taking Lipitor 40 mg and never picked up his prescription for Crestor. Patient has history of hyponatremia. Sodium was 134 during July 2021 Patient has history of elevated alkaline phosphatase it was 143 during July 2021 Patient does have history of vitamin D deficiency Patient does have history of MEKHI. It was recommended patient schedule Pap titration previously Pap titration is pending from October 2021 Patient does have history of CKD stage III A.. Thought to be due to uncontrolled DM, hypertension and BPH. Patient does see nephrology Patient's BMI is 37.16. Patient has been gaining weight Patient does have history of BPH, hematuria and nocturia. Patient sees urology Patient does have history of marijuana use. Pt smokes 1-joints per day, use to smoke 3-5 daily. Hasbeen cutting down and cut joints in half. Neighbor not happy. Has been smoking MJ x 50 yrs. Pt recalls being told about MJ and [place] previously. 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 Patient also has history of invasive adenocarcinoma of the rectum.Patient is status post rectal surgery November 24, 2020. Patient does see general surgeon and oncologist. Patient is being prescribed Protonix 40 mg as well as Zofran 4 mg. Pt to schedule with general surgeon.. Pt saw oncology 06/01/22. Pt had lab, then a Ct scan. 06/23/2022 2:12 PM - Radiology, [place] In Impression IMPRESSION: 1. 4 mm pulmonary nodule in the right lower lobe, unchanged since 08/05/2020. Near 2 year stability is consistent with near certain benignity. 2. No evidence of acute intrathoracic pathology. Patient does see psychiatry for anxiety and depression. Patient indicates sometimes gets in a bad mood and hard to let things roll off of his shoulder Reviewing chart patient's last annual physical was February 14, 2020 States to see ortho to get his groin check on Monday. Dr. Lake. 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 Ahmadi Social History Tobacco Use Smoking status: Former Packs/day: 1.00 Years: 37.00 Pack years: 37.00 Types: Cigarettes Quit date: 04/03/2010 Years since quittin.2 Smokeless tobacco: Never Tobacco comments: Smokes [place] Vaping Use Vaping Use: Never used Substance Use Topics Alcohol use: Not Currently Drug use: Yes Types: Marijuana Comment: daily ALLERGIES Allergen Reactions Penicillins Unknown Pt states he thinks he had a reaction as a child Family History Problem Relation Age of Onset other (Heart stroke) Mother other (Glaucoma lung cancer) Father Glaucoma Sister Glaucoma Brother Current Outpatient Medications Medication Sig Dispense Refill cholecalciferol, Vitamin D3, (VITAMIN D3) 1,250 mcg (50,000 unit) cap capsule Take 1 capsule by mouth one time a week. 12 capsule 0 rosuvastatin (CRESTOR) 5 mg tablet Take 1 tablet by mouth daily at bedtime. 30 tablet 1 dulaglutide (TRULICITY) 4.5 mg/0.5 mL pen injector Inject 4.5 mg subcutaneously one time a week. 12Each 0 lisinopril (ZESTRIL, PRINIVIL) 5 mg tablet Take 1 tablet by mouth once daily. 90 tablet 1 Blood-Glucose Meter monitoring kit For monitoring sugars 3x/day (patient on insulin) 1 Each 1 Lancets lancets Recommend check blood sugar once daily, rotate times. Sometimes check in the morning sometimes 2 hours after meals, sometimes at bedtime. Please bring in blood sugar log and have available for review. 100 Each 11 alcohol swabs (ALCOHOL PREP PADS) Apply 1 application to affected area as directed. Recommend checkblood sugar once daily, rotate times. Sometimes check in the morning sometimes 2 hours after meals,sometimes at bedtime. Please bring in blood sugar log and have available for review. 100 Each 3 insulin glargine (LANTUS SOLOSTAR, BASAGLAR KWIKPEN) 100 unit/mL (3 mL) Inject 26 Units subcutaneously daily at bedtime. 6 Each 1 pioglitazone (ACTOS) 45 mg tablet Take 1 tablet by mouth once daily. 90 tablet 3 tamsulosin (FLOMAX) 0.4 mg Take 1 capsule by mouth once daily. 90 capsule 0 finasteride (PROSCAR) 5 mg tablet Take 1 tablet by mouth once daily. 90 tablet 3 ondansetron (ZOFRAN) 4 mg tablet Take by mouth every 8 hours as needed for nausea/vomiting. pantoprazole DR (PROTONIX) 40 mg tablet Take 1 tablet by mouth DAILY (6 AM). 30 tablet 2 Insulin [place], Disposable, (COMFORT EZ PEN NEEDLES) 29 gauge x 1/2" 1 Each once daily. 100 Each 3 blood sugar diagnostic (BLOOD GLUCOSE TEST) test strip 3x/day 100 Strip 11 No current facility-administered medications for this visit. ROS BP 136/84 Pulse 92 Ht 5' 10" (1.78m) Wt 259 lb (117.5kg) BMI 37.16 kg/(m^2). Physical Exam HENT: Head: Normocephalic and atraumatic. Right Ear: Tympanic membrane, ear canal and external ear normal. Left Ear: Tympanic membrane, ear canal and external ear normal. Nose: Nose normal. Mouth/Throat: Pharynx: Uvula midline. Eyes: General: Lids are normal. Conjunctiva/sclera: Conjunctivae normal. Pupils: Pupils are equal, round, and reactive to light. Neck: Trachea: Trachea normal. Cardiovascular: Rate and Rhythm: Normal rate and regular rhythm. Pulses: Normal pulses. Heart sounds: Normal heart sounds. Pulmonary: Effort: Pulmonary effort is normal. Breath sounds: Normal breath sounds. Abdominal: General: Bowel sounds are normal. Palpations: Abdomen is soft. Tenderness: There is no abdominal tenderness. There is no guarding. Musculoskeletal: Cervical back: Neck supple. Right lower le+ Pitting Edema present. Left lower le+ Pitting Edema present. Lymphadenopathy: Cervical: No cervical adenopathy. Skin: General: Skin is warm and dry. Neurological: Mental Status: He is alert and oriented to person, place, and time. Psychiatric: Mood and Affect: Affect normal. No visits with results within 1 Day(s) from this visit. Latest known visit with results is: Appointment on 06/27/2022 Component Date Value Ref Range Status Cholesterol, Total 06/27/2022 250 (A) <200 mg/dL Final <200 mg/dL, Desirable 200-239 mg/dL, Borderline high >239 mg/dL, High Triglyceride 06/27/2022 152 (A) <150 mg/dL Final <150 mg/dL, Normal 150-199 mg/dL, Borderline high 200-499 mg/dL, High >499 mg/dL, Very high HDL Cholesterol 06/27/2022 52 >39 mg/dL Final 40-59 mg/dL, Acceptable >59 mg/dL, High: Negative risk factor for coronary heart disease <40 mg/dL, Low: Positive risk factor for coronary heart disease Non HDL Cholesterol 06/27/2022 198 (A) <130 mg/dL Final <130 mg/dL, Optimal 130-159 mg/dL, Near optimal/above optimal 160-189 mg/dL, Borderline high 190-219 mg/dL, High >219 mg/dL, Very high Secondary prevention optimal non HDL Cholesterol levels are recommended to be <100 mg/dL Fasting Time 06/27/2022 12 hrs Final VLDL Cholesterol 06/27/2022 30 (A) <30 mg/dL Final TC:HDL Ratio 06/27/2022 4.81 <5.10 Final LDL Cholesterol 06/27/2022 168 (A) <100 mg/dL Final <100 mg/dL, Optimal 100-129 mg/dL, Near optimal/above optimal 130-159 mg/dL, Borderline high 160-189 mg/dL, High >189 mg/dL, Very high Secondary prevention optimal LDL Cholesterol levels are recommended to be < 70 mg/dL LDL:HDL Ratio 06/27/2022 3.23 (A) <2.54 Final Reference: 1. National Cholesterol Education Program ATP III Guideline At-A-Glance Quick Desk Reference: National Heart, Lung, and Blood [place]. National Institutes of Health. 2001: NIH Publication No. 01-3305. 2. An International Atherosclerosis Society position paper: global recommendations for the management of dyslipidemia: executive summary, Atherosclerosis. 2014: 232(2):410-413. Protein, Total 06/27/2022 6.4 6.3 - 8.0 g/dL Final Albumin 06/27/2022 3.7 (A) 3.9 - 4.9 g/dL Final Calcium, Total 06/27/2022 8.9 8.5 - 10.2 mg/dL Final Bilirubin, Total 06/27/2022 0.3 0.2 - 1.3 mg/dL Final Alkaline Phosphatase 06/27/2022 100 38 - 113 U/L Final AST 06/27/2022 13 (A) 14 - 40 U/L Final ALT 06/27/2022 15 10 - 54 U/L Final Glucose 06/27/2022 132 (A) 74 - 99 mg/dL Final The [place] Diabetes [employer] (ADA) provides guidance for cutoff values for fasting glucose andrandom glucose. The ADA defines fasting as no caloric intake for at least 8 hours. Fasting plasma glucose results between 100 to 125 mg/dL indicate increased risk for diabetes (prediabetes). Fasting plasma glucose results greater than or equal to 126 mg/dL meet the criteria for diagnosis of diabetes. In the absence of unequivocal hyperglycemia, results should be confirmed by repeat testing. In a patient with classic symptoms of hyperglycemia or hyperglycemic crisis, random plasma glucose results greater than or equal to 200 mg/dL meet the criteria for diagnosis of diabetes. Reference: Standards of Medical Care in Diabetes 2016, [place] [employer]. Diabetes Care. 2016.39(Suppl 1). BUN 06/27/2022 30 (A) 9 - 24 mg/dL Final Creatinine 06/27/2022 1.59 (A) 0.73 - 1.22 mg/dL Final Sodium 06/27/2022 142 136 - 144 mmol/L Final Potassium 06/27/2022 4.7 3.7 - 5.1 mmol/L Final Chloride 06/27/2022 107 (A) 97 - 105 mmol/L Final CO2 06/27/2022 27 22 - 30 mmol/L Final Anion Gap 06/27/2022 8 (A) 9 - 18 mmol/L Final Estimated Glomerular Filtration Ra* 06/27/2022 49 (A) >=60 mL/min/1.73m Final Estimated Glomerular Filtration Rate (eGFR) is calculated using the 2020 CKD-EPI creatinine equation. This equation utilizes serum creatinine, sex, and age as parameters. The creatinine assay has traceable calibration to isotope dilution- mass spectrometry. Refer to KDIGO guidelines for clinical interpretation. In patients with unstable renal function, e.g. those with acute kidney injury, the eGFRmay not accurately reflect actual GFR. TSH 06/27/2022 1.470 0.270 - 4.200 mIU/L Final Vitamin D 25 Hydroxy 06/27/2022 15.1 (A) >=30.0 ng/mL Final Classification of 25 [place] Vitamin D status: Deficiency: <= 20.0 ng/ml. Insufficiency: 21.0-29.0 ng/ml. Sufficiency: >= 30.0 ng/ml. Procedure Notes: New medication(s) prescribed today: Yes: . Discussed new medication dosage, usage, goals of therapy, and side effects. Patient has been apprised of any potential drug interactions to be aware of. Patient expresses understanding. Counseling completed in adopting health behaviors such as avoiding excessive alcohol use, avoid tobacco use, improve nutrition, and engage in physical activities. Copy of written care plan, clinical summary, treatment plan, new medications, goals, and self management requirements were given to patient. Assessment/Plan: ASSESSMENT/PLAN: 1. Hypertension, essential - ICD9: 401.9, ICD10: I10 (primary diagnosis) - suboptimal control - factors affecting control of BP include being overweight. - Increase lisinopril (Zestril/Prinivil) - Recommended regular aerobic exercise. - Recommend home blood pressure monitoring, to bring results in on next visit - Goal of BP <130/80 - LISINOPRIL 5 MG TABLET, dose increased to 7.5 mg 2. Bilateral leg edema - ICD9: 782.3, ICD10: R60.0 It was recommended that patient decrease sodium in the diet, drink plenty of non-caffeinated fluids, and elevate their lower extremities while seated. 3. Diabetes mellitus due to underlying condition, uncontrolled, with hyperglycemia (HCC) - ICD9: 249.81, 790.29, ICD10: E08.65 Improving - HGBA1C B/O (AG) 8.9 - DULAGLUTIDE 4.5 MG/0.5 ML SUBCUTANEOUS PEN INJECTOR 4. H/O medication noncompliance - ICD9: V15.81, ICD10: Z91.14 Improving 5. Microalbuminuria - ICD9: 791.0, ICD10: R80.9 Continue lisinopril 6. Hyponatremia - ICD9: 276.1, ICD10: E87.1 Improving 7. Vitamin D deficiency - ICD9: 268.9, ICD10: E55.9 Dietary sources of vitamin D include fatty fishes such as salmon, sardines, tuna, mushrooms, cod liver oil, fortified milk, fortified soy milk, yogurt and egg yolks. Exposure to sunlight can also cause your skin to make vitamin D. Use of sunscreen with SPF 50 is recommended.You may elect to use 5000 international units of vitamin D daily,Which is available [id number] - CHOLECALCIFEROL (VITAMIN D3) 1,250 MCG (50,000 UNIT) CAPSULE 8. Mixed hyperlipidemia - ICD9: 272.2, ICD10: E78.2 - suboptimal control and - improved control - Begin treatment with rosuvastatin (Crestor) 5 mg - Encouraged following a low fat, low cholesterol diet. - Discussed the benefits of regular aerobic exercise and weight loss. - ROSUVASTATIN 5 MG TABLET 9. MEKHI (obstructive sleep apnea) - ICD9: 327.23, ICD10: G47.33 Patient noncompliant with CPAP 10. Obesity, Class II, BMI 35-39.9 - ICD9: 278.00, ICD10: E66.9 Weight increasing - Behavioral intervention 11. Stage 3a chronic kidney disease (HCC) - ICD9: 585.3, ICD10: N18.31 Patient on lisinopril - Recommend maintaining A1c < 7% - Follow up with nephrology 12. Marijuana use - ICD9: 305.20, ICD10: F12.90 Stable 13. 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 - ICD9: 530.85, ICD10: K22.719 Follow-up with general surgeon 14. Malignant neoplasm of rectum (HCC) - ICD9: 154.1, ICD10: C20 Follow-up with general surgeon Follow-up with oncology 15. Anxiety and depression - ICD9: 300.00, 311, ICD10: F41.9, F32.A Follow-up with psychiatry 16. Benign prostatic hyperplasia, unspecified whether lower urinary tract symptoms present - ICD9: 600.00, ICD10: N40.0 Follow-up with urology 17. Pulmonary nodule, right - ICD9: 793.11, ICD10: R91.1 Small incidental finding DO Belgica Ellsworth DO Return in about 1 month (around 07/30/2022) for Visit for re-check, Medication follow-up, Diabetes, Hypertension. If symptoms persist, worsen, or no improvement, patient is to call 911 and/or go to the nearest ED. documented in [facility] Miscellaneous Notes* Telephone Encounter - Belgica Vega DO - 06/28/2022 6:15 PM EDT This encounter was opened in error. documented in this encounterVan [facility] History of Present illness Narrative* Juancho Todd DO - 06/22/2022 7:18 AM EDT June 22, 2022 An order has been received for PAP titration study from Dr. Belgica Vega DO [facility] Staff/Library Specialist Staff Orders. Visit prep complete - Please refer to the sleep study order (under procedures tab) for protocol details and special instructions. The sleep study is scheduled for 06/22/2022. Insurance: Payor: [facility] MEDICARE / Plan: [facility] DUAL COMPLETE HMO SNP / Product Type: Medicare / Payer/Plan Subscr Sex Relation Sub. Ins. ID Effective Group Num 1. [facility] MEDICARE * JOSÉ MANUEL ASHTON 1960 Male Self [id number] 04/03/22 [address] 2. MEDICAID [place] -* JOSÉ MANUEL ASHTON 1960 Male Self [id number] 11/04/21 [address] June 22, 2022 Standing PSG Orders signed in the last 90 days None Future PSG Orders signed in the last 90 days None All Prior Sleep Studies (past 365 days) Some values may be hidden. Unless noted otherwise, only the newest values recorded on each date aredisplayed. 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 Indications for study: MEKHI previously diagnosed: Evaluate response to PAP therapy Sleep study to be performed: PAP titration study Special instructions: Target REM/supine sleep Transcutaneous CO2 monitoring if available *DOS 07/29/2020 PSG REM-Time REM AHI NREM-Time NREM AHI Total-Time Total RDI Total AHI Supine 0.0 m 0.0 64.0 m 14.1 64.0 m 19.7 14.1 Off-Supine 7.0 m 42.9 229.0 m 8.1 236.0 m 15.3 9.2 Total 7.0 m 42.9 293.0 m 9.4 300.0 m 16.2 10.2 IMPRESSION/RECOMMENDATIONS: 1. Mild obstructive sleep apnea exacerbated to the severe range in REM sleep. 2. Respiratory events were associated with oxygen desaturations to a garth of 79%. ...treatment of sleep apnea is recommended. [facility] Staff Note: I have read the above protocol, edited as needed, and agree to the plan. Juancho Todd DO 7:39 AM, 06/22/2022 Brice Dixon documented in this encounterVan [facility]03-[facility]23 History of Present illness Narrative* Rory Mendoza MD - 06/01/2022 10:53 AM EST José Manuel Ashton 1960 June 01, 2022 Diagnosis: Invasive rectal adenocarcinoma (T1) arising in a tubulovillous adenoma, 07/2020. HPI: Patient was evaluated by gastroenterology Dr. Aron Reynolds for nausea and dizziness which started after a shoulder injection and intermittent rectal bleeding. 06/26/2020 CT A/P: Asymmetric wall thickening of the lower rectum raising concern for possible rectal mass. Scattered colonic diverticula. Mild fatty infiltration in the liver. 07/04/2020 EGD and colonoscopy (Dr. Aron Reynolds). Probable 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 status post biopsies Diffuse gastropathy with stigmata of recent improved after colonoscopy. Status post biopsies Duodenitis and possible scalloping status post biopsies Duodenal bulb polyp status post cold snare resection Cecal polyp status post underwater EMR resection 4 rectosigmoid polyps removed using hot snare Large polyp in the lower rectum status post removal using hot EMR - Invasive adenocarcinoma arisingin a tubulovillous adenoma. HERMILO. 08/05/2020 CT chest: Couple small nonspecific lung nodules/densities. Surveillance recommended. 6 mm sclerotic focus left 4th rib, indeterminate. Minimal retained secretions within the trachea vs. 1-2 mm polypoid-like intraluminal projection. 11/24/2020 Exam under anesthesia, full thickness transanal excision of rectal polyp using transanal minimally invasive surgery (Dr. Artem Ahmadi). Transanal excision of rectum - Features consistent with a previous biopsy site with foreign body granulomas. No residual invasive adenocarcinoma or tubulovillous adenoma is identified. 04/19/2021 EGD (Dr. Briceno): Severe esophagitis likely multifactorial; GERD and likely esophageal candidiasis; cannot rule out herpetic esophagitis Small hiatal hernia 01/18/2022 CT A/P No acute process identified involving the abdomen or pelvis. There are findings possibly related toconstipation. Findings of remote granulomatous disease. Diffuse mural thickening of the bladder likely related to chronic bladder outlet obstruction. 03/28/2022 CT A/P: No acute findings. He was last seen in 08/2020. Lost to follow-up. He presents today to reestablish care. He is overdue for colonoscopy. Reports lower abdominal pain, left hip pain x 3 years, back pain (history of herniated disc), shoulder pain, neck pain. No unintentional weight loss, headache, chest pain, shortness of breath, nausea, vomiting, visible blood in stool or urine. 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 Ahmadi Current Outpatient Medications Medication Sig Dispense Refill lisinopril (ZESTRIL, PRINIVIL) 5 mg tablet Take 1 tablet by mouth once daily. 90 tablet 1 Blood-Glucose Meter monitoring kit For monitoring sugars 3x/day (patient on insulin) 1 Each 1 Lancets lancets Recommend check blood sugar once daily, rotate times. Sometimes check in the morning sometimes 2 hours after meals, sometimes at bedtime. Please bring in blood sugar log and have available for review. 100 Each 11 alcohol swabs (ALCOHOL PREP PADS) Apply 1 application to affected area as directed. Recommend checkblood sugar once daily, rotate times. Sometimes check in the morning sometimes 2 hours after meals,sometimes at bedtime. Please bring in blood sugar log and have available for review. 100 Each 3 dulaglutide (TRULICITY) 4.5 mg/0.5 mL pen injector Inject 4.5 mg subcutaneously one time a week. 4 Each 1 insulin glargine (LANTUS SOLOSTAR, BASAGLAR KWIKPEN) 100 unit/mL (3 mL) Inject 26 Units subcutaneously daily at bedtime. 6 Each 1 pioglitazone (ACTOS) 45 mg tablet Take 1 tablet by mouth once daily. 90 tablet 3 tamsulosin (FLOMAX) 0.4 mg Take 1 capsule by mouth once daily. 90 capsule 0 finasteride (PROSCAR) 5 mg tablet Take 1 tablet by mouth once daily. 90 tablet 3 ondansetron (ZOFRAN) 4 mg tablet Take by mouth every 8 hours as needed for nausea/vomiting. ergocalciferol 50,000 unit capsule (VITAMIN D2, DRISDOL) Take 1 capsule by mouth one time a week. 4capsule 0 Insulin [place], Disposable, (COMFORT EZ PEN NEEDLES) 29 gauge x 1/2" 1 Each once daily. 100 Each 3 blood sugar diagnostic (BLOOD GLUCOSE TEST) test strip 3x/day [address] (PROTONIX) 40 mg tablet Take 1 tablet by mouth DAILY (6 AM). 30 tablet 2 No current facility-administered medications for this visit. ALLERGIES Allergen Reactions Penicillins Unknown Pt states he thinks he had a reaction as a child FAMILY HISTORY Problem Relation Age of Onset other (Heart stroke) Mother other (Glaucoma lung cancer) Father Glaucoma Sister Glaucoma Brother Social History Tobacco Use Smoking status: Former Packs/day: 1.00 Years: 37.00 Pack years: 37.00 Types: Cigarettes Quit date: 04/03/2010 Years since quittin.1 Smokeless tobacco: Never Tobacco comments: Smokes [place] Vaping Use Vaping Use: Never used Substance Use Topics Alcohol use: Not Currently Drug use: Yes Types: Marijuana Comment: daily I have confirmed and edited as necessary, the PFSH and ROS obtained by others 06/01/2022. Review of Systems: All systems reviewed on 06/01/2022 with pertinent positives and negatives as outlined in the HPI. 06/01/22 1044 BP: 153/74 Pulse: 91 Temp: 36.1 C (97 F) TempSrc: Temporal SpO2: 96% Weight: 116.1 kg (256 lb) Height: 177.8 cm (5' 10") Body mass index is 36.73 kg/m . Physical Exam: ECOG PS: 1 Pain Intensity: 3 General: NAD HEENT: Normocephalic, no sclera icterus. Neck: Supple. Chest: Clear bilaterally, not labored. Heart: Normal S1 and S2, RRR Abdomen: Soft, nondistended, bowel sounds present. Lower abdominal discomfort and left hip pain. Extremities: No calf tenderness or edema. Neurological: Grossly intact. Skin: No rashes or jaundice. Nodes: No palpable adenopathy. Psychiatric: Alert and oriented x3. Stressed. Labs CEA 4.6 on 07/31/2020. WBC (k/uL) Date Value 03/31/2022 6.35 RBC (m/uL) Date Value 03/31/2022 4.71 Hemoglobin (g/dL) Date Value 03/31/2022 13.5 Hematocrit (%) Date Value 03/31/2022 39.4 MCV (fL) Date Value 03/31/2022 83.7 MCH (pg) Date Value 03/31/2022 28.7 MCHC (g/dL) Date Value 03/31/2022 34.3 RDW-CV (%) Date Value 03/31/2022 12.6 Platelet Count (k/uL) Date Value 03/31/2022 249 MPV (fL) Date Value 03/31/2022 9.3 Glucose (mg/dL) Date Value 04/01/2022 236 (H) BUN (mg/dL) Date Value 04/01/2022 20 Creatinine (mg/dL) Date Value 04/01/2022 1.19 Sodium (mmol/L) Date Value 04/01/2022 137 Potassium (mmol/L) Date Value 04/01/2022 4.4 Chloride (mmol/L) Date Value 04/01/2022 100 CO2 (mmol/L) Date Value 04/01/2022 27 Protein, Total (g/dL) Date Value 03/28/2022 6.3 Albumin (g/dL) Date Value 03/28/2022 3.7 (L) Calcium, Total (mg/dL) Date Value 04/01/2022 9.3 Alkaline Phosphatase (U/L) Date Value 03/28/2022 122 (H) Bilirubin, Total (mg/dL) Date Value 03/28/2022 0.4 AST (U/L) Date Value 03/28/2022 12 (L) ALT (U/L) Date Value 03/28/2022 11 Cholesterol, Total (mg/dL) Date Value 03/21/2022 296 (H) Triglyceride (mg/dL) Date Value 03/21/2022 336 (H) ASSESSMENT/PLAN: 1. 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 - HERMILO. - CT A/P on 06/26/[address] chest on 08/05/2020 showed no definitive evidence for distant metastasis. - Transanal excision of rectal polyp by Dr. Ahmadi on 11/24/2020 revealed no residual invasiveadenocarcinoma. - CT A/P on 03/28/22 showed no evidence of recurrence. - Overdue for surveillance colonoscopy. Patient will contact Dr. Ahmadi's office. - Check CBC, CMP and CEA today. CEA 4.6 on 07/31/20 --> 3.7 on 06/01/22. 2. Family history of colon cancer. - Genetic counseling ordered by Dr. Ahmadi. 3. Chronic bilateral low back pain with left-sided sciatica / spinal stenosis of lumbar region / left hip and multiple joint pain. - Was seen by Dr. Perea in the past. Lost to follow-up. - Refer to orthopedics. 4. Lung nodules. - CT chest 08/06/20 showed couple small nonspecific lung nodules/densities. 6 mm sclerotic focus [id number] rib, indeterminate. - Order CT chest wo IV contrast. If CT chest is unremarkable, follow up in 6 months with lab work prior to visit. Call for questions or concerns. Rory Mendoza MD I spent a total of 40 minutes on the date of the service which included preparing to see the patient, [id number] patient care, completing clinical documentation, obtaining and/or reviewing separately obtained history, performing a medically appropriate examination, counseling and educating the pat ient/family/caregiver, ordering medications, tests, or procedures, independently interpreting results (not separately reported), communicating results to the patient/family/caregiver, and care coordination (not separately reported). documented in this encounterCleveland [id number] Miscellaneous Notes* Telephone Encounter - Griselda Mayfield - 05/19/2022 8:56 AM EST Consult to Oncology Confirmation number: [id number] documented in this encounterVan [facility] History of Present illness Narrative* Belgica Vega, - 05/18/2022 3:26 PM EST Images from the original note were not included. [place] [id number] [facility] [address] [place] [address] Visit Date: May 18, 2022 Mr.Jim Najma Ashton Date of : 1960 MRN/E #: [id number] History of Present Illness José Manuel Ashton is a 61 year old male. Patient presents to the clinic today for follow-up hypertension, diabetes HPI Patient is here with his Sister Janell Patient has history of hypertension and lower extremity edema.. BP today 134/85. BP during last office visit was 158/101.during April 2022. Patient admitted during last office visit that he had notbeen taking lisinopril. Patient was encouraged to take this on a regular basis. Patient is on lisinopril 5 mg and is tolerating medication well. Pt doesn't check BP at home, doesn't want monitor. Pt indicates been trying to take lisinopril daily. States took medications today. Pt indicates has had NV since Monday. .Has puke in throat, but mostly drool he states. Pt denies FC. Has had NV x 4-5 per day. Hasnt eaten much, Pt admits he ate out prior, trying to eat more soup instead of fast food. Doesn't take pills when NV. Metformin was discontinued during last visit secondary to NV. Pt feels NV about the same, made no difference. Patient was seen for hospital discharge follow-up during last office visit April 2022 for hyperglycemia. Patient does have history of diabetes and noncompliance with diabetic medications. Patient does have history of DKA from medication noncompliance. Patient sees endocrinology. Patient does not check his blood sugar at home.. Patient's A1c was 10.5, glucose 234 during April 2022.Patient is being pre scribed Lantus 26 units, Trulicity 3 weekly, takes on Monday. Pt is taking Actos 45 mg, Pt takes allie or early afternoon. Pt is no longer taking metformin. Trulicity was increased from 1.5 mg to 3 mg during last visit. Pt is tolerating meds well. Pt indicated previously does good for 2-3 days, then doesn't do well. During last office visit patient indicated was taking trulicity, takes lantus intermittently 2-3 days.. Patient had admitted he was not taking metformin or Actos. Patient had indicated he needed to get down on his pills. Pt indicates has been taking DM meds regularly except for past 2-3 days when had NV. Pt Pt indicates he cant find his BS meter. Patient had indicated previously that he needed to get his A1c down to 8 in order to do cataract surgery bilaterally. Patient had indicated previously has surgery scheduled 02/2022.. Patient diagnosed as glaucoma suspect bilaterally, with mild nonproliferative DR bilaterally with macular edema and nuclear senile cataracts bilaterally.. Reviewing chart eye surgery was canceled by ophthalmology... Per chart review patient is getting prescription for bifocal per telephone note May 05, 2022 Patient also has history of microalbuminuria. Patient does have history of CKD stage III A. Patient also has history of microalbuminuria. 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 Per note indicates stage IIIa CKD presumed secondary to uncontrolled diabetes, uncontrolled hypertension and obstruction from BPH. Patient is not being prescr ibed medication by nephrology. Patient has history of hyperlipidemia. Cholesterol was 286 during September 2021 patient was prescribed Crestor 5 mg. Previously patient indicated he did not seed cone picker Medication from the pharmacy. During last office visit which was a hospital discharge follow-up.. Patient had indicated previously he had did not know why he did not seed cone picker the Crestor. That medication has since dropped off of his med list. Patient was being prescribed Lipitor 40 mg by hospitalist at [facility].Pt isnt taking lipitor or Crestor... Cholesterol was 296 triglyceride 336, HDL 51 LDL 178 during March 2022 Patient has history of hyponatremia. Sodium was 134 during July 2021 Patient has history of elevated alkaline phosphatase it was 143 during July 2021 Patient does have history of vitamin D deficiency Patient does have history of MEKHI. It was recommended patient schedule Pap titration previously Pap titration is pending from October 2021 Patient's BMI is 36.73. Patient weight has been stable Patient does have history of BPH, hematuria and nocturia. Patient saw urology during May 04, 2022.. Patient was started on Proscar 5 mg, is also on Flomax 0.4 mg Patient does have history of marijuana use. Pt smokes 1-joints per day, use to smoke 3-5 daily. Hasbeen cutting down and cut joints in half. Neighbor not happy. Has been smoking MJ x 50 yrs. Pt recalls being told about MJ and NV. 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 Patient also has history of invasive adenocarcinoma of the rectum.Patient is status post rectal surgery November 24, 2020. Patient does see general surgeon and oncologist. Patient is being prescribed Protonix 40 mg as well as Zofran 4 mg. Pt to schedule with general surgeon.. Per chart review, pt last saw oncologist Dr. MENDOZA 08/2020. Pt indicates he doesn't recall what she looks like. Pt sis familiar withher. Patient does see psychiatry for anxiety and depression. Patient indicates cannot recall name of psychiatrist.. Per chart review mental health medications not appearing on med list. Patient is being prescribed Pt was referred to social insurance analyst recently. Patient indicates he has troubles remembering things. Patient indicates previously that he likes to bring his sister along to help remember things. 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 Ahmadi Social History Tobacco Use Smoking status: Former Packs/day: 1.00 Years: 37.00 Pack years: 37.00 Types: Cigarettes Quit date: 04/03/2010 Years since quittin.1 Smokeless tobacco: Never Tobacco comments: Smokes [place] Vaping Use Vaping Use: Never used Substance Use Topics Alcohol use: Not Currently Drug use: Yes Types: Marijuana Comment: daily ALLERGIES Allergen Reactions Penicillins Unknown Pt states he thinks he had a reaction as a child Family History Problem Relation Age of Onset other (Heart stroke) Mother other (Glaucoma lung cancer) Father Glaucoma Sister Glaucoma Brother Current Outpatient Medications Medication Sig Dispense Refill tamsulosin (FLOMAX) 0.4 mg Take 1 capsule by mouth once daily. 90 capsule 0 finasteride (PROSCAR) 5 mg tablet Take 1 tablet by mouth once daily. 90 tablet 3 ondansetron (ZOFRAN) 4 mg tablet Take by mouth every 8 hours as needed for nausea/vomiting. dulaglutide (TRULICITY) 3 mg/0.5 mL pen injector Inject 3 mg subcutaneously one time a week. [address] (PROTONIX) 40 mg tablet Take 1 tablet by mouth DAILY (6 AM). 30 tablet 2 insulin glargine (LANTUS SOLOSTAR, BASAGLAR KWIKPEN) 100 unit/mL (3 mL) Inject 26 Units subcutaneously daily at bedtime. 6 Each 1 ergocalciferol 50,000 unit capsule (VITAMIN D2, DRISDOL) Take 1 capsule by mouth one time a week. 4capsule 0 pioglitazone (ACTOS) 45 mg tablet Take 1 tablet by mouth once daily. 90 tablet 3 Insulin [place], Disposable, (COMFORT EZ PEN NEEDLES) 29 gauge x 1/2" 1 Each once daily. 100 Each 3 blood sugar diagnostic (BLOOD GLUCOSE TEST) test strip 3x/day 100 Strip 11 Blood-Glucose Meter monitoring kit For monitoring sugars 3x/day (patient on insulin) 1 Each 1 Lancets lancets Use as instructed 3x/day 100 Each 11 alcohol swabs (ALCOHOL PREP PADS) Apply 1 application to affected area as directed. 100 Each 3 lisinopril (ZESTRIL, PRINIVIL) 5 mg tablet Take 1 tablet by mouth once daily. 90 tablet 1 No current facility-administered medications for this visit. Review of Systems Constitutional: Negative for chills, diaphoresis, fever and malaise/fatigue. Respiratory: Negative for shortness of breath. Cardiovascular: Negative for chest pain and leg swelling. Gastrointestinal: Positive for heartburn, nausea and vomiting. Negative for abdominal pain, blood in stool, constipation, diarrhea and melena. Genitourinary: Negative for dysuria. Musculoskeletal: Negative for joint pain. Skin: Negative for rash. Neurological: Negative for dizziness and headaches. Endo/Heme/Allergies: Negative for environmental allergies. Psychiatric/Behavioral: Positive for depression and memory loss. BP 134/85 Pulse 101 Ht 5' 10" (1.78m) Wt 256 lb (116.1kg) BMI 36.73 kg/(m^2). Physical Exam HENT: Head: Normocephalic and atraumatic. Right Ear: Tympanic membrane, ear canal and external ear normal. Left Ear: Tympanic membrane, ear canal and external ear normal. Nose: Nose normal. Mouth/Throat: Pharynx: Uvula midline. Eyes: General: Lids are normal. Conjunctiva/sclera: Conjunctivae normal. Pupils: Pupils are equal, round, and reactive to light. Neck: Trachea: Trachea normal. Cardiovascular: Rate and Rhythm: Normal rate and regular rhythm. Pulses: Normal pulses. Heart sounds: Normal heart sounds. Pulmonary: Effort: Pulmonary effort is normal. Breath sounds: Normal breath sounds. Abdominal: General: Bowel sounds are normal. Palpations: Abdomen is soft. Tenderness: There is no abdominal tenderness. There is no guarding. Musculoskeletal: Cervical back: Neck supple. Lymphadenopathy: Cervical: No cervical adenopathy. Skin: General: Skin is warm and dry. Neurological: Mental Status: He is alert and oriented to person, place, and time. Psychiatric: Mood and Affect: Affect normal. No visits with results within 1 Day(s) from this visit. Latest known visit with results is: Office Visit on 04/13/2022 Component Date Value Ref Range Status Glucose, Point of Care 04/13/2022 234 (A) 74 - 99 mg/dL Final Comment: Location:[facility] [place], [address] [place] [address], [facility] The Accu-Chek Inform II glucose meter has not been approved for testing on patients receiving intensive medical intervention or therapy and results from this point of care glucose test should not be used for patient management decisions in these cases. Inaccurate results may also occur from other interfering factors, such as N-acetylcysteine (blood concentrations of greater than 5mg/dL), galactose, extremes of hematocrit (<10 or >65), or high doses of ascorbic acid (vitamin C) greater than 3mg/dL. Consider alternate testing mechanisms (e.g. core lab, blood gas instrument) in the above situations. Hemoglobin A1C (POCT) 04/13/2022 10.5 (A) 4.2 - 5.6 % Final Comment: Location:[facility], [address] [place] [address], [facility] Point of care (POC) Hemoglobin A1c (HGBA1C) testing is intended to assess glucose control and provide a management tool for patients known to have diabetes and their healthcare providers. Target HGBA1C levels may depend on specific clinical circumstances. POC HGBA1C is not intended for use as a diagnostic or screening test; laboratory-based testing should be used for diagnostic purposes. The following information is supplemental and may not be applicable to specific diabetes management situations: The POC device reliability engineer provides a normal range of 4.2% to 6.5% for the HGBA1C POC test. However, the [place] [employer] guidelines indicate that patients with HGBA1C in the range of 5.7% to 6.4% are at increased risk for development of diabetes and that intervention by lifestyle modification may be beneficial. A HGBA1C level greater than or equal to 6.5% is considered diagnostic of diabetes, pending confirmatory testing. Use of HGBA1C testing to evaluate glucose control may not be appropriate for patients with hemoglobin variants or other conditions (e.g. anemia) that alter red blood cell lifespan. Procedure Notes: New medication(s) prescribed today: Yes: . Discussed new medication dosage, usage, goals of therapy, and side effects. Patient has been apprised of any potential drug interactions to be aware of. Patient expresses understanding. Counseling completed in adopting health behaviors such as avoiding excessive alcohol use, avoid tobacco use, improve nutrition, and engage in physical activities. Copy of written care plan, clinical summary, treatment plan, new medications, goals, and self management requirements were given to patient. Assessment/Plan: ASSESSMENT/PLAN: 1. Hypertension, essential - ICD9: 401.9, ICD10: I10 (primary diagnosis) - good control - factors affecting control of BP include being overweight, lack of exercise, and sleep apnea. - Continue current medication(s) - Encouraged dietary sodium restriction/DASH diet - Recommended regular aerobic exercise. - Recommend home blood pressure monitoring, to bring results in on next visit - Discussed need and benefit for weight loss. - Follow up in 1 month for BP recheck. - Goal of BP <130/80 - COMP METABOLIC PANEL - TSH BLD - LISINOPRIL 5 MG TABLET 2. Bilateral leg edema - ICD9: 782.3, ICD10: R60.0 Controlled 3. Diabetes mellitus due to underlying condition, uncontrolled, with hyperglycemia (HCC) - ICD9: 249.81, 790.29, ICD10: E08.65 Trulicity dosing increased to 4.5 mg - ACCUCHECK B/O 196 - HGBA1C B/O (AG) 9.7 - BLOOD-GLUCOSE METER KIT - LANCETS - ALCOHOL SWABS - DULAGLUTIDE 4.5 MG/0.5 ML SUBCUTANEOUS PEN INJECTOR - INSULIN GLARGINE (U-100) 100 UNIT/ML (3 ML) SUBCUTANEOUS PEN, 26 units - PIOGLITAZONE 45 MG TABLET 4. H/O medication noncompliance - ICD9: V15.81, ICD10: Z91.14 Encourage medication compliance 5. Microalbuminuria - ICD9: 791.0, ICD10: R80.9 Briefly discussed in layman's terms - ALBUMIN/CREAT RATIO RND UR - LISINOPRIL 5 MG TABLET 6. Hyponatremia - ICD9: 276.1, ICD10: E87.1 - COMP METABOLIC PANEL 7. Vitamin D deficiency - ICD9: 268.9, ICD10: E55.9 - VITAMIN D 25 HYDROXY 8. Mixed hyperlipidemia - ICD9: 272.2, ICD10: E78.2 - to be determined upon return of lab results - Encouraged following a low fat, low cholesterol diet. - Discussed the benefits of regular aerobic exercise and weight loss. - LIPID PANEL BASIC 9. MEKHI (obstructive sleep apnea) - ICD9: 327.23, ICD10: G47.33 Briefly discussed MEKHI signs and symptoms. Did explain to patient that undetected and untreated MEKHI could lead to heart attack, stroke, liver and kidney failure, depression, weight gain as well as dementia. - PAP TITRATION PSG (CPAP, BIPAP, ASV) 10. Obesity, Class II, BMI 35-39.9 - ICD9: 278.00, ICD10: E66.9 Stable - Behavioral intervention 11. Stage 3a chronic kidney disease (HCC) - ICD9: 585.3, ICD10: N18.31 Follow-up with nephrology - Recommend maintaining A1c < 7% - Recommend maintaining blood pressure under 130/80 - Follow up with nephrology - COMP METABOLIC PANEL Continue lisinopril 5 mg 12. Marijuana use - ICD9: 305.20, ICD10: F12.90 Decreasing 13. 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 Malignant neoplasm of rectum (HCC) - ICD9: 154.1, ICD10: C20 Follow-up with general surgery - CONSULT TO ONCOLOGY Patient last saw oncologist August 2020 so re referred 15. Mood disorder (HCC) - ICD9: 296.90, ICD10: F39 Stable 16. Anxiety and depression - ICD9: 300.00, 311, ICD10: F41.9, F32.A Stable 17. Benign prostatic hyperplasia, unspecified whether lower urinary tract symptoms present - ICD9: 600.00, ICD10: N40.0 Follow-up with urology who is prescribing Flomax and Proscar 18. Glaucoma suspect of both eyes - ICD9: 365.00, ICD10: H40.003 Follow-up with ophthalmology 19. 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 Nuclear senile cataract of both eyes - ICD9: 366.16, ICD10: H25.13 Follow-up with ophthalmology 21. Nausea and vomiting, unspecified vomiting type - ICD9: 787.01, ICD10: R11.2 Persistent Patient informed of Wanda Vega, DO Return in about 1 month (around 06/15/2022) for Visit for re-check, Medication follow-up, Diabetes, Hypertension., Lab Encourage patient to schedule annual physical During November 2022,During birthmonth to help prompt memory If symptoms persist, worsen, or no improvement, patient is to call 911 and/or go to the nearest ED. documented in this encounterVan [facility]02-[facility] History of Present illness Narrative* Jen Bergman RN - 05/11/2022 2:11 PM EST PRIMARY CARE COORDINATION FOLLOW-UP NOTE Patient identified by name and date of . NO Summary: PCC attempted routine f/u call - not able to leave a msg. Goals: Active Goals - Current status as of 05/11/2022 at 2:15 PM Most Recent Address all appropriate HM and disease care gaps No change (05/11/2022) Annual BMP On track (04/15/2022) Last 04/01/22 Annual foot exam On track (01/07/2022) Annual microalbumin On track (01/07/2022) Annual retina exam On track (01/07/2022) Blood Pressure < 130/80 155/90 (04/13/2022) Confirm medication adherence of all prescribed medications and uses them correctly No change (03/24/2021) HBA1C drawn quarterly On track (04/15/2022) Hemoglobin A1C < 7 11.6 (07/05/2021) Improve your coping skills No change (10/28/2020) LDL at or below 100 mg/dL or on a high statin No change (09/06/2021) Last 07/05/21 LDL = 160 (No meds) Reduce fat intake On track (05/25/2021) Reduce sugar intake On track (05/25/2021) Tobacco cessation Understands and follows a low salt diet No change (09/23/2020) Understands and follows DASH diet Weight mgmt/activity No change (09/23/2020) 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 Signature Jen Bergman RN May 11, 2022 documented in this encounterVan Wert [facility]02-03-[facility]23 Miscellaneous Notes* Telephone Encounter - BRANDIE Wolfe - 05/06/2022 1:20 PM EST Thank you!! * Telephone Encounter - Renetta Gannon MD - 05/06/2022 12:31 PM EST Mrx from 11/05/2021 updated to include add. Renetta Gannon MD 05/06/2022 12:31 PM * Telephone Encounter - BRANDIE Wolfe - 05/05/2022 4:[address] Gannon, I guess he has decided he wants a bifocal. Can you re finalize prescription with the add power. He is trying to order glasses. Let me know. Thanks, Manjula documented in this encounterVan Wert [facility]02-[facility] History of Present illness Narrative* Noé Kennedy MD - 05/04/2022 2:11 PM EST ESTABLISHED PATIENT OFFICE VISIT HISTORY OF PRESENT ILLNESS Patient presents with: Prostate Problem: BPH José Manuel Ashton is a 61 year old male who presents w/sister for follow up regarding New problem- none LAB RESULTS Creatinine Date Value Ref Range Status 04/01/2022 1.19 0.73 - 1.22 mg/dL Final PSA (ng/mL) Date Value 01/19/2022 0.74 07/05/2021 0.97 04/09/2021 1.90 02/17/2020 0.75 Color (no units) Date Value 03/28/2022 Yellow Clarity (no units) Date Value 03/28/2022 Clear Glucose, Urine (no units) Date Value 03/28/2022 2+ Bilirubin, Urine (no units) Date Value 03/28/2022 1+ Ketones, Urine (no units) Date Value 03/28/2022 4+ Specific [place], Ur (no units) Date Value 03/28/2022 1.015 Hemoglobin/Blood,Ur (no units) Date Value 03/28/2022 2+ pH, Urine (no units) Date Value 03/28/2022 5.5 Protein, Urine (no units) Date Value 03/28/2022 3+ Urobilinogen (no units) Date Value 03/28/2022 0.2 EU/dL Nitrites (no units) Date Value 03/28/2022 Negative Leuk Esterase (no units) Date Value 03/28/2022 Negative ALLERGIES Allergen Reactions Penicillins Unknown Pt states he thinks he had a reaction as a child MEDICATIONS: ondansetron (ZOFRAN) 4 mg tablet Take by mouth every 8 hours as needed for nausea/vomiting. dulaglutide (TRULICITY) 3 mg/0.5 mL pen injector Inject 3 mg subcutaneously one time a week. pantoprazole DR (PROTONIX) 40 mg tablet Take 1 tablet by mouth DAILY (6 AM). insulin glargine (LANTUS SOLOSTAR, BASAGLAR KWIKPEN) 100 unit/mL (3 mL) Inject 26 Units subcutaneously daily at bedtime. lisinopril (ZESTRIL, PRINIVIL) 5 mg tablet Take 1 tablet by mouth once daily. ergocalciferol 50,000 unit capsule (VITAMIN D2, DRISDOL) Take 1 capsule by mouth one time a week. pioglitazone (ACTOS) 45 mg tablet Take 1 tablet by mouth once daily. Insulin [place], Disposable, (COMFORT EZ PEN NEEDLES) 29 gauge x 1/2" 1 Each once daily. blood sugar diagnostic (BLOOD GLUCOSE TEST) test strip 3x/day Blood-Glucose Meter monitoring kit For monitoring sugars 3x/day (patient on insulin) Lancets lancets Use as instructed 3x/day alcohol swabs (ALCOHOL PREP PADS) Apply 1 application to affected area as directed. tamsulosin (FLOMAX) 0.4 mg Take 1 capsule by mouth once daily. (Patient not taking: Reported on 05/04/2022) REVIEW OF SYSTEMS GENERAL:no unintentional weight loss, malaise or fevers. NEUROLOGIC: pt is alert and oriented GENITOURINARY: Positive for BPH The remainder of the ROS was reviewed and is negative. 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 Detected on EMG Rectal cancer (HCC) Spinal stenosis of lumbar region with neurogenic claudication Vitamin D deficiency FAMILY HISTORY Problem Relation Age of Onset other (Heart stroke) Mother other (Glaucoma lung cancer) Father Glaucoma Sister Glaucoma Brother PAST SURGICAL HISTORY Procedure Laterality Date COLONOSCOPY GEN ANES 07/24/2020 Invasive Adenocarcinoma arising in a Tubulovillous Adenoma in the lower rectum, Tubular Adenomas, Fragment of Hyperplastic polyp, Internal Hemorrhoids EGD 07/24/2020 Will's Esophagus, Hyperplastic polyp in Duodenum EXCISION OF RECTAL TUMOR, TRANSANAL 11/24/2020 Dr. Ahmadi SOCIAL HISTORY Social History Tobacco Use Smoking status: Former Packs/day: 1.00 Years: 37.00 Pack years: 37.00 Types: Cigarettes Quit date: 04/03/2010 Years since quittin.0 Smokeless tobacco: Never Tobacco comments: Smokes [place] Vaping Use Vaping Use: Never used Substance Use Topics Alcohol use: Not Currently Drug use: Yes Types: Marijuana Comment: daily PHYSICAL EXAMINATION General appearance: Well appearing, alert, in no acute distress, well-hydrated, well nourished Psych Alert and oriented to person, place and time Respiratory: no wheezing or rhonchi Genitourinary: MALE EXAM: Exam NOT Indicated 01/19/2022 PSA 0.7 03/22/2021 Office cysto neg (microhem) 03/15/2021 Cytology neg 02/19/2021 CT a/p neg 02/17/2020 PSA 0.75, no Fhx of Design Eng Assessment and Plan: Microhematuria- prior w/u neg, no gross LUTS- IPSS 26, nocturia 2-3x, freq Q 2h, ++ urgency but no leak, no hematuira/dysuria, off Flomax but will restart so script refilled - start Proscar now Medical Decision Making: Problems: Moderate: 2+ stable chronic illnesses Data: Unique test result(s) reviewed: 1 Risk: Moderate: Drug management Medical Decision Making Level: 4 - Moderate [facility] History of Present illness Narrative* Jen Bergman RN - 04/26/2022 1:22 PM EST PRIMARY CARE COORDINATION FOLLOW-UP NOTE Patient identified by name and date of . NO Summary: PCC attempted TCM f/u call to pt (D/C 04/01/22) - not able to leave a ms. Goals: Active Goals - Current status as of 04/26/2022 at 1:22 PM Most Recent Address all appropriate HM and disease care gaps No change (04/26/2022) Annual BMP On track (04/15/2022) Last 04/01/22 Annual foot exam On track (01/07/2022) Annual microalbumin On track (01/07/2022) Annual retina exam On track (01/07/2022) Blood Pressure < 130/80 155/90 (04/13/2022) Confirm medication adherence of all prescribed medications and uses them correctly No change (03/24/2021) HBA1C drawn quarterly On track (04/15/2022) Hemoglobin A1C < 7 11.6 (07/05/2021) Improve your coping skills No change (10/28/2020) LDL at or below 100 mg/dL or on a high statin No change (09/06/2021) Last 07/05/21 LDL = 160 (No meds) Reduce fat intake On track (05/25/2021) Reduce sugar intake On track (05/25/2021) Tobacco cessation Understands and follows a low salt diet No change (09/23/2020) Understands and follows DASH diet Weight mgmt/activity No change (09/23/2020) 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 Signature Jen Bergman RN April 26, 2022 documented in this [facility]Van [facility] History of Present illness Narrative* Jen Bergman RN - 04/21/2022 1:36 PM EST PRIMARY CARE COORDINATION FOLLOW-UP NOTE Patient identified by name and date of . NO Summary: PCC attempted TCM f/u call to pt (D/C 04/01/22) - not able to leave a msg. Goals: Active Goals - Current status as of 04/21/2022 at 1:36 PM Most Recent Address all appropriate HM and disease care gaps No change (04/15/2022) Annual BMP On track (04/15/2022) Last 04/01/22 Annual foot exam On track (01/07/2022) Annual microalbumin On track (01/07/2022) Annual retina exam On track (01/07/2022) Blood Pressure < 130/80 155/90 (04/13/2022) Confirm medication adherence of all prescribed medications and uses them correctly No change (03/24/2021) HBA1C drawn quarterly On track (04/15/2022) Hemoglobin A1C < 7 11.6 (07/05/2021) Improve your coping skills No change (10/28/2020) LDL at or below 100 mg/dL or on a high statin No change (09/06/2021) Last 07/05/21 LDL = 160 (No meds) Reduce fat intake On track (05/25/2021) Reduce sugar intake On track (05/25/2021) Tobacco cessation Understands and follows a low salt diet No change (09/23/2020) Understands and follows DASH diet Weight mgmt/activity No change (09/23/2020) 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 Signature Jen Bergman RN April 21, 2022 documented in this [facility]Van [facility]01[facility] History of Present illness Narrative* Belgica Vega DO - 04/13/2022 4:13 PM EST Transitional Care Management TCM Eligibility Documentation The following information was gathered during the initial Patient Outreach Encounter. Date of Outreach: 04/05/2022 Outreach Attempt 1: Contact Not Made Outreach Attempt 2: Contact Not Made Date of Discharge 04/01/2022 Some recent data might be hidden Summary Discharged from: [facility] Admit Date: March 28, 2022, discharge April 01, 2022 Admitted for: Hyperglycemia Belgica Vega, Provider Documentation José Manuel Ashton is a 61 year old male here today for a follow up to recent hospitalization. I have reviewed the patient's hospital course including diagnostic testing performed during this hospitalization, their discharge medications, and my assessment and plan with the patient and any family members present at today's visit. HPI: Pt here with sister Janell. Patient was admitted March 28, 2022 discharged April 01, 2022 for hyperglycemia. Patient did have symptoms of intractable nausea and vomiting and hyperglycemia and was admitted. Patient did have acidosis but improved with IV fluids. Blood sugars improved with insulin therapy. Per discharge summary patient refused to do preprandialinsulin injections going home. Pt states they were giving him shots but wasn't taking his regular pills. Cannabis cessation was recommended Patient does have history of Will's esophagitis. Had EGD 2020 Patient's glucose was 251 on April 01, 2022, magnesium unremarkable, CBC unremarkable. Creatinine was 1.4 sodium 135 on March 31, [address] of abdomen and pelvis:03/28/2022 3:44 PM - Radiology, [place] In Impression IMPRESSION: No acute findings. Patient has history of hypertension and lower extremity edema.. BP today 158/101. BP during last office visit was 156/94. Recheck 146/86 during February 2022. Patient is on lisinopril 5 mg and is tolerating medication well. Pt admits havent been taking lisinopril. Patient does have history of diabetes and noncompliance with diabetic medications. Patient does have history of DKA from medication noncompliance. Patient sees endocrinology. Patient does not check his blood sugar at home.. Patient's A1c was 10.7 BS 3 384 during February 2022. Patient was referred to endocrinology..Patient is being prescribed Lantus 26 units, Trulicity 1.5 weekly, Actos 45 mg, and metformin ER 1 g twice daily. Pt states does good for 2-3 days, then doesn't do well. Pt is takingtrulicity, takes lantus intermittently 2-3 days. Pt admits hasnt been taking metformin or actos. Pt states needs to cut down pills. Pt sis brought in his pill pack. Patient does have history of CKD stage III A. Patient also has history of microalbuminuria. 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 Per note indicates stage IIIa CKD presumed secondary to uncontrolled diabetes, uncontrolled hypertension and obstruction from BPH. Patient is not taking any m edications Patient had indicated previously that he needed to get his A1c down to 8 in order to do cataract surgery bilaterally. Patient had indicated previously has surgery scheduled 02/2022.. Patient diagnosed as glaucoma suspect bilaterally, with mild nonproliferative DR bilaterally with macular edema and nuclear senile cataracts bilaterally.. Reviewing chart eye surgery was canceled by ophthalmology. Patient has history of hyperlipidemia. Cholesterol was 286 during September 2021 patient was prescribed Crestor 5 mg. Previously patient indicated he did not seed cone picker Medication from the pharmacy. During last office visit which was a hospital discharge follow-up.. Patient had indicated previously he had did not know why he did not seed cone picker the Crestor. That medication has since dropped off of his med list. Patient was being prescribed Lipitor 40 mg by hospitalist at [facility].Pt isnt taking lipitor or Crestor... Cholesterol was 296 triglyceride 336, HDL 51 LDL 178 during March 2022 Patient's sister brought in his bag full of package pills. States he is taking too many pills and repeats herself. Patient has history of hyponatremia. Sodium was 134 during July 2021 Patient has history of elevated alkaline phosphatase it was 143 during July 2021 Patient does have history of MEKHI. It was recommended patient schedule Pap titration previously Pap titration is pending from October 2021 Patient's BMI is 36.73. Patient has been losing weight Patient has history of BPH and hematuria. patient is on Flomax from urology. Patient saw urologist last month during October 2021.. PSA was normal during January 2022 Patient does have history of marijuana use. Patient smokes about 2 joints per day. Pt indicates smokes 2-3 joints per day, feels it helps his mood. Per sis feels it calms him down a lot. Pt smokes 1-2 joints per day, use to smoke 3-5 daily. 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 Patient also has history of invasive adenocarcinoma of the rectum.Patient is status post rectal surgery November 24, 2020. Patient does see general surgeon and oncologist Patient does see psychiatry for anxiety and depression. Patient indicates cannot recall name of psychiatrist.. Per chart review mental health medications not appearing on med list Pt was referred to social insurance analyst recently. Patient indicates he has troubles remembering things. Patient indicates he brought his sister along to help remember things. Per sis, she doesn't want him to take all these pills, doesn't feel necessary. Pt uses [facility]. Review of Systems Constitutional: Negative for chills, diaphoresis, fever and malaise/fatigue. Respiratory: Negative for shortness of breath. Cardiovascular: Negative for chest pain and leg swelling. Gastrointestinal: Negative for abdominal pain, nausea and vomiting. Genitourinary: Negative for dysuria. Musculoskeletal: Negative for joint pain. Skin: Negative for rash. Neurological: Negative for dizziness and headaches. Endo/Heme/Allergies: Negative for environmental allergies. Psychiatric/Behavioral: Positive for memory loss. Negative for depression. Vitals BP 158/101 Pulse 98 Ht 5' 10" (1.78m) Wt 256 lb (116.1kg) BMI 36.73 kg/(m^2). Physical Exam HENT: Head: Normocephalic and atraumatic. Right Ear: Tympanic membrane, ear canal and external ear normal. Left Ear: Tympanic membrane, ear canal and external ear normal. Nose: Nose normal. Mouth/Throat: Pharynx: Uvula midline. Eyes: General: Lids are normal. Conjunctiva/sclera: Conjunctivae normal. Pupils: Pupils are equal, round, and reactive to light. Neck: Trachea: Trachea normal. Cardiovascular: Rate and Rhythm: Normal rate and regular rhythm. Pulses: Normal pulses. Heart sounds: Normal heart sounds. Pulmonary: Effort: Pulmonary effort is normal. Breath sounds: Normal breath sounds. Abdominal: General: Bowel sounds are normal. Palpations: Abdomen is soft. Tenderness: There is no abdominal tenderness. There is no guarding. Musculoskeletal: Cervical back: Neck supple. Lymphadenopathy: Cervical: No cervical adenopathy. Skin: General: Skin is warm and dry. Neurological: Mental Status: He is alert and oriented to person, place, and time. Psychiatric: Mood and Affect: Affect normal. ASSESSMENT/PLAN: 1. Hospital discharge follow-up - ICD9: V67.59, ICD10: Z09 (primary diagnosis) 2. Hyperglycemia - ICD9: 790.29, ICD10: R73.9 Improving 3. Nausea and vomiting, unspecified vomiting type - ICD9: 787.01, ICD10: R11.2 Briefly discussed nausea vomiting and weaning off of cannabis Briefly discussed cannabis hyper emesis syndrome 4. Marijuana use - ICD9: 305.20, ICD10: F12.90 Improving 5. 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 Hypertension, essential - ICD9: 401.9, ICD10: I10 - suboptimal control - Encouraged dietary sodium restriction/DASH diet - Recommended regular aerobic exercise. - Recommend home blood pressure monitoring, to bring results in on next visit - Discussed need and benefit for weight loss. - Follow up in 1 month for BP recheck. - Goal of BP <130/80 Recommend patient start lisinopril 5 mg 7. Bilateral leg edema - ICD9: 782.3, ICD10: R60.0 Controlled 8. Diabetes mellitus due to underlying condition, uncontrolled, with hyperglycemia (HCC) - ICD9: 249.81, 790.29, ICD10: E08.65 Improving Trulicity dose increased to 3 mg weekly Metformin was discontinued secondary to nausea and vomiting. Continue taking Lantus 26 units and Actos 45 mg, patient and sister were informed that if he stopped taking those medications that likely his blood sugar would increase - GLUCOSE, BLOOD (POC) 234 - HEMOGLOBIN A1C (POC) 10.5 Follow-up with endocrinology 9. H/O medication noncompliance - ICD9: V15.81, ICD10: Z91.14 Takes medications for 2 to 3 days in a row then stops then restarts 10. Microalbuminuria - ICD9: 791.0, ICD10: R80.9 Recommend start lisinopril 5 mg 11. Hyponatremia - ICD9: 276.1, ICD10: E87.1 Mild 12. Vitamin D deficiency - ICD9: 268.9, ICD10: E55.9 Continue dietary changes 13. MEKHI (obstructive sleep apnea) - ICD9: 327.23, ICD10: G47.33 Patient noncompliant with CPAP 14. Mixed hyperlipidemia - ICD9: 272.2, ICD10: E78.2 - suboptimal control - Encouraged following a low fat, low cholesterol diet. - Discussed the benefits of regular aerobic exercise and weight loss. 15. Malignant neoplasm of rectum (HCC) - ICD9: 154.1, ICD10: C20 Follow-up with general surgery 16. Benign prostatic hyperplasia, unspecified whether lower urinary tract symptoms present - ICD9: 600.00, ICD10: N40.0 Stable 17. Obesity, Class II, BMI 35-39.9 - ICD9: 278.00, ICD10: E66.9 Weight decreasing - Behavioral intervention 18. Anxiety and depression - ICD9: 300.00, 311, ICD10: F41.9, F32.A Patient is no longer on Effexor from psychiatry 19. Stage 3a chronic kidney disease (HCC) - ICD9: 585.3, ICD10: N18.31 Improving 20. Type 2 diabetes mellitus with stage 3a chronic kidney disease, with long- term current use of insulin (HCC) - ICD9: 250.40, 585.3, V58.67, ICD10: E11.22, N18.31, Z79.4 improved control Belgica Vega DO April 13, 2022 4:13 PM documented in this encounterVan [facility]01-10-[facility] History of Present illness Narrative* DION Bernabe - 04/12/2022 8:58 AM EST Provider Action / FYI PCP Action FYI Primary Care Social Work Assessment Date of Service: April 12, 2022 (Patient has been identified by name and date of ) Patient Name: José Manuel Ashton Referred by: Physician Patient White Sugar Pan Tank Operator: Jen Bergman RN Hand-In Received: Yes Reason for Consultation: Community Resources Mode of Outreach: Phone Call Patient Contact: Telephonic Medical Last Hospital Admission Date: Previous admit date: 03/31/2022 Health Literacy: 1. How often do you need to have someone help you when you read instructions, pamphlets, or other written material from your doctor or pharmacy?Rarely - 2 2. How confident are you filling out medical forms by yourself?Quite a bit - 2 If the patient scored 3 on either question, the following interventions were put into place:Patientdid not score > 3 Advanced Directives: SW will attempt to discuss with the patient. Social Optical Glass Wet Inspector: Meche Sanders (Sister) [phone] Caregiver Status: Patient is not a caregiver for another person. Marital Status: Single Parents: did not discuss Children: not responsible for minor children Siblings: Meche Sanders (Sister) [phone]; Marek Ashton (Brother) Emotional Support animals: none Stress: Lives with brother and trsoqd-yt-cus and needs to move to his own housing. Primary Language: Amharic Ethnicity/Cultural identification: Not Islam Affiliation: did not disclose Gender Identity: Male Sexual Orientation: Straight (not lesbian or smith) Status (Including History of Combat Experience): None Living Arrangements: Home Resides with: Brother and Koqwtu-lr-Cnn Issues or Concerns with Home Environment: Patient wants to move out Food Insecurity: Food Insecurity: Unknown Worried About Running Out of Food in the Last Year: Patient refused Ran Out of Food in the Last Year: Patient refused Financial Resource Strain: Financial Resource Strain: Unknown Difficulty of Paying Living Expenses: Patient refused Transportation: Transportation Needs: Unknown Lack of Transportation (Medical): Patient refused Lack of Transportation (Non-Medical): Patient refused Patient has medical transportation. Housing: Housing Stability: Unknown Unable to Pay for Housing in the Last Year: Patient refused Number of Places Lived in the Last Year: 1 Unstable Housing in the Last Year: Patient refused Functional Hearing Impairment: none Speech Impairment: none Visual Impairment: none Dental Impairments: none ADL/IADL Impairment: Patient is able to care for himself, but sometimes chooses not to take his medication as prescribed. Durable Medical Equipment: glucometer Cognitive/Behavioral Mental Status: Patient is alert and oriented Behavioral Health History: BRANDAN, MDD Substance Use & Treatment History: Alcohol dependence, marijuana use History of Abuse/Neglect: denies Additional Psychosocial Stressors/Concerns: none Patient Strengths/Protective Factors: stable housing, medical insurance Access Behavioral Health Provider: Karthik Home Health Provider: none Community Services: none Employment/Employer: disabled Source of Income: [facility] Insurance Provider(s): Payor: MEDICARE / Plan: MEDICARE A AND B / Product Type: Medicare / Medication Adherence: I am convinced of the importance of my prescription medication:Agree mostly - 0 I worry that my prescription medication will do more harm than good to me:Disagree mostly - 0 I feel financially burdened by my knd-wy-peveea expenses for my prescription medication:Disagree mostly -0 Patient is categorized as:low risk < 2 Patient Stated Goals: community resources [place] of Choice Explained: N/A Summary: PCSW received and reviewed order. Patient would like to move out of his current living situation. He has a limited income. SW called and left a voicemail message asking the patient to returnthe call. Also, SW mailed the patient a housing directory for low-income housing. Hand-Off Communication: PCP, PCC Assessment Completed Community Resources - External Resource Follow Up Provided Housing - External Resource Resources Provided - External Resource Time Spent: 90 minutes SIGNATURE: DION Bernabe PATIENT NAME: José Manuel Ashton DATE: April 12, 2022 TIME: 8:58 AM CONTACT #: [phone] documented in this [facility]Van [facility]01-[facility] History of Present illness Narrative* Jen Bergman RN - 04/06/2022 2:35 PM EST TRANSITIONAL CARE MANAGEMENT (TCM) COMMUNITY MONITORING PROGRAM - [place] SUMMARY: Contact made with patient: No - 2nd unsuccessful attempt - end outreach and close encounter Outreach ended * Jen Bergman RN - 04/05/2022 11:43 AM EST TRANSITIONAL CARE MANAGEMENT (TCM) COMMUNITY MONITORING PROGRAM - [place] Pt has a hospital f/u appointment on 04/13/22 at 3:40p SUMMARY: [facility] 04[facility]01[facility]22. RISK 27 Admitted for: REASON I WAS IN THE HOSPITAL: Hyperglycemia Principal Problem: Hyperglycemia Active Problems: TARYN (acute kidney injury) (HCC) Nausea and vomiting HTN (hypertension) Nicotine use disorder, F17.2 Resolved Problems: * No resolved hospital problems. * Discharge Disposition: Home/Self Care Contact made with patient: No - next outreach attempt will be on next business day Outreach ended * Jen Bergman RN - 04/05/2022 11:43 AM EST TCM Home Visit Referral Source of Stratification: [facility] Admission Status: Discharged Readmission Risk Score: 27 JANELL Score: 7 Patient meets program referral criteria: No Patient does not qualify for High Risk TCM Home Visit program due to: Discharged home, does not meet program criteria Jen Bergman RN April 05, 2022 11:43 AM documented in this encounterVan [facility]12-28-2022 Miscellaneous Notes* Telephone Encounter - Sissy Mayen - 03/30/2022 9:05 AM EST Primary care social work consult Auto-referred documented in this [facility]12-21-2022 Miscellaneous Notes* Telephone Encounter - Samia Thomason LPN - 03/23/2022 10:51 AM EST ----- Message from Soren Byrd MD sent at 03/22/2022 5:20 PM EST ----- Please call patient and inform results. Vitamin D levels were low. Start taking Vitamin D3 2,000 international unit(s) daily, available w/oprescription. documented in this [facility]12-21-2022 Miscellaneous Notes* Telephone Encounter - Liyah Lora LPN - 03/23/2022 8:55 AM EST Call out to patient regarding message below but unable to leave a message d/t mailbox being full. Liyah Lora LPN ----- Message from Soren Byrd MD sent at 03/22/2022 5:20 PM EST ----- Please call patient and inform results. Vitamin D levels were low. Start taking Vitamin D3 2,000 international unit(s) daily, available w/oprescription. [facility] History of Present illness Narrative* Jen Bergman RN - 03/17/2022 2:37 PM EST TRANSITION CARE MANAGEMENT (TCM) FOLLOW-UP NOTE Patient identified by name and date of : NO Summary: PCC attempted TCM f/u call (SNF D/C 02/15/22) - not able to leave a msg. 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 Signature Jen Bergman RN March 17, 2022 documented in [facility]Van [facility] History of Present illness Narrative* Jen Bergman RN - 03/11/2022 11:41 AM EST PRIMARY CARE COORDINATION FOLLOW-UP NOTE Patient identified by name and date of . NO Summary: PCC attempted to call pt for TCM f/u ([facility] D/C 02/15/22) - not able to leave a msg. Goals: Active Goals - Current status as of 03/11/2022 at 11:48 AM Most Recent Address all appropriate HM and disease care gaps No change (03/11/2022) Annual BMP On track (03/11/2022) Last 01/26/22 Annual foot exam On track (01/07/2022) Annual microalbumin On track (01/07/2022) Annual retina exam On track (01/07/2022) Blood Pressure < 130/80 146/86 (03/01/2022) Confirm medication adherence of all prescribed medications and uses them correctly No change (03/24/2021) HBA1C drawn quarterly On track (03/11/2022) Hemoglobin A1C < 7 11.6 (07/05/2021) Improve your coping skills No change (10/28/2020) LDL at or below 100 mg/dL or on a high statin No change (09/06/2021) Last 07/05/21 LDL = 160 (No meds) Reduce fat intake On track (05/25/2021) Reduce sugar intake On track (05/25/2021) Tobacco cessation Understands and follows a low salt diet No change (09/23/2020) Understands and follows DASH diet Weight mgmt/activity No change (09/23/2020) 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 Signature Jen Bergman RN March 11, 2022 documented in [facility]Van [facility]12[facility] Miscellaneous Notes* Telephone Encounter - Bunny Daniels - 03/10/2022 11:06 AM EST ----- Message from Saskia Ramirez sent at 03/10/2022 10:38 AM EST ----- Reason for the call/escalation: Harish with [facility] calling for updated medication list Was Patient Referred to [facility]/Seek Emergency Treatment (Y/N): no Did Patient Agree (Y/N): n/a Was An Attempt Made To Transfer The Patient To The Office (Y/N): no Were You Able To Reach Someone At The Office (Y/N): n/a If Yes - Patient Was Transferred To (Caregivers Name): n/a If No - Which [facility] Leadership Scrum Project Manager Did You Speak With Regarding This Patient: n/a Was an appointment scheduled (Y/N): no Reason patient was requesting visit (RFV/signs and symptoms/diagnosis) : [facility] Person calling if other than patient: Harish Return call to if other than patient: Harish Best contact number: [phone] , fax# [phone] Thank you, Saskia Ramirez March 10, 2022 10:38 AM documented in this encounterVan [facility]11-29-2022 Miscellaneous Notes* Telephone Encounter - Griselda Mayfield - 03/01/2022 4:09 PM EST Consult to Endocrinology Confirmation number: [id number] documented in this encounterVan [facility]11-29-[facility] History of Present illness Narrative* Belgica Vega, DO - 03/01/2022 2:48 PM EST Images from the original note were not included. Belgica Vega [address] [facility] [address] [place] [address] Visit Date: March 01, 2022 Mr.Jim Najma Ashton Date of : 1960 MRN/E #: [id number] History of Present Illness José Manuel Ashton is a 61 year old male. Patient presents to the clinic today for follow-up hypertension, diabetes HPI Pt here with faina Maciel. Patient has history of hypertension and lower extremity edema.. BP today 156/94. BP during last office visit req885/85., Recheck 135/83. during January 2022. Patient was prescribed lisinopril 20 mg per chart review. Patient had indicated during last office visit that he was not taking lisinopril atthat time and last took it late December 2021.Pt admits is not taking lisinopril, he tried it fow a few days. States he just doesn't take them, he doesn't know why. Per sis will get pill box. Sis willing to call him every am. Pt denies any side effects from it. Recheck BP today is 146/86 Patient does have history of diabetes and noncompliance with diabetic medications. Patient does have history of DKA from medication noncompliance. Patient sees endocrinology. Patient does not check his blood sugar at home.. Patient's A1c was 11.3 during November 2021, glucose was 330.Patient is being prescribed Lantus 26 units, Trulicity 1.5 weekly, Actos 45 mg, and metformin ER 1 g twice daily. Ptindicated previously he was taking metformin and actos. He could not cant recall if took his shots.. Patient's A1c was 13.4, BS 290 during January 2022. Pt indicates doesn't want to go to [place].. Pt hasnt taken any DM meds x 4 days. Glucose was 170 on January 27, 2022. Patient does have history of CKD stage III AAA. Patient also has history of microalbuminuria. Patient did see refrigeration insulator during January 2022. Per note indicates stage IIIa CKD presumed secondary touncontrolled diabetes, uncontrolled hypertension and obstruction from BPH. Patient is not taking any medications. Patient was sent to ED for psychiatric evaluation. Follow-up was recommended in 3 months.Pt admits he wasn't taking any meds at the time. States hears good, but doesn't listen.. Patient's albumin/creatinine ratio was 1438 during January 2022 Per chart review patient was admitted January 17, 2022, discharge January 20, 2022 from [facility].. Per note: REASON FOR HOSPITALIZATION: Risk of physical harm to self, Inability to care for self, and Failure of outpatient psychiatric management DISCHARGE DIAGNOSIS: PRIMARY: Mood Disorder Mood Disorder NOS Substance induced mood disorder Cannabis use disorder Suspect MDD recurrent Alcohol use disorder Medical diagnoses include IRDM2, HTN, HLD, CKD3, rectal cancer, spinal stenosis, 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 Reviewing chart there is been no change in patient's diabetic medicines.. There has been no change in patient's lisinopril dose.. Patient was started on Flomax 0.4 mg daily for BPH with nocturia, vitamin D 50 K IUs x4 capsules, once weekly lisinopril 20 mg, Effexor XR 75 mg. Pt indicates it rips his gut up, been on it before while in [place]. Pt was rx effexor by hospital dr. Pt is not taking wellbutrin SR. Pt stopped venlafaxine. Patient was to follow-up with psychiatrist Dr. Deb Rangel. February 11, 2022 Patient had indicated previously that he needed to get his A1c down to 8 in order to do cataract surgery bilaterally. Patient had indicated previously has surgery scheduled 02/2022.. Patient diagnosed as glaucoma suspect bilaterally, with mild nonproliferative DR bilaterally with macular edema and nuclear senile cataracts bilaterally.. Reviewing chart eye surgery was canceled by ophthalmology. Patient has history of vitamin D deficiency. Vitamin D was 24.2 during September 2021. Pt indicates was taking vit D. Patient has history of hyperlipidemia. Cholesterol was 286 during September 2021 patient was prescribed Crestor 5 mg. Previously patient indicated he did not seed cone picker Medication from the pharmacy.. Patienthad indicated previously he had did not know why he did not seed cone picker the Crestor. That medication has since dropped off of his med list. Patient is being prescribed Lipitor 40 mg by hospitalist at [facility].Pt isnt taking lipitor.. Cholesterol was 260 triglyceride 291 LDL 162 during January 2022 Patient has history of hyponatremia. Sodium was 134 during July 2021 Patient has history of elevated alkaline phosphatase it was 143 during July 2021 Patient does have history of MEKHI. It was recommended patient schedule Pap titration previously Pap titration is pending from October 2021 Patient's BMI is 36.59. Patient has been losing weight Patient has history of BPH and hematuria. patient is on Flomax from urology. Patient saw urologist last month during October 2021.. PSA was normal during January 2022 Patient does have history of marijuana use. Patient smokes about 2 joints per day. Pt indicates smokes 2-3 joints per day, feels it helps his mood. Per sis feels it calms him down a lot. 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 Patient also has history of invasive adenocarcinoma of the rectum.Patient is status post rectal surgery November 24, 2020. Patient does see general surgeon and oncologist Patient does see psychiatry for anxiety and depression. Patient had admitted previously that he hadanger issues and was defiant as a child.Pt was on wellbutrin Sr previously, was changed to effexor in hospital. For health maintenance influenza vaccine recommended.Pt would like flu shot. 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 Ahmadi Social History Tobacco Use Smoking status: Former Packs/day: 1.00 Years: 37.00 Pack years: 37.00 Types: Cigarettes Quit date: 04/03/2010 Years since quittin.9 Smokeless tobacco: Never Tobacco comments: Smokes [place] Vaping Use Vaping Use: Never used Substance Use Topics Alcohol use: Not Currently Drug use: Yes Types: Marijuana Comment: daily ALLERGIES Allergen Reactions Penicillins Unknown Pt states he thinks he had a reaction as a child Family History Problem Relation Age of Onset other (Heart stroke) Mother other (Glaucoma lung cancer) Father Glaucoma Sister Glaucoma Brother Current Outpatient Medications Medication Sig Dispense Refill dulaglutide (TRULICITY) 1.5 mg/0.5 mL pen injector Inject 1.5 mg subcutaneously one time a week. 4 Each 1 metFORMIN ER (GLUCOPHAGE XR) 500 mg 24 hr tablet Two tablets before breakfast and before supper 120tablet 1 insulin glargine (LANTUS SOLOSTAR, BASAGLAR KWIKPEN) 100 unit/mL (3 mL) Inject 26 Units subcutaneously daily at bedtime. 6 Each 1 lisinopril (ZESTRIL, PRINIVIL) 5 mg tablet Take 1 tablet by mouth once daily. 30 tablet 1 tamsulosin (FLOMAX) 0.4 mg Take 1 capsule by mouth once daily. 90 capsule 0 ergocalciferol 50,000 unit capsule (VITAMIN D2, DRISDOL) Take 1 capsule by mouth one time a week. 4capsule 0 pioglitazone (ACTOS) 45 mg tablet Take 1 tablet by mouth once daily. 90 tablet 3 Insulin [place], Disposable, (COMFORT EZ PEN NEEDLES) 29 gauge x 1/2" 1 Each once daily. 100 Each 3 blood sugar diagnostic (BLOOD GLUCOSE TEST) test strip 3x/day 100 Strip 11 Blood-Glucose Meter monitoring kit For monitoring sugars 3x/day (patient on insulin) 1 Each 1 Lancets lancets Use as instructed 3x/day 100 Each 11 alcohol swabs (ALCOHOL PREP PADS) Apply 1 application to affected area as directed. 100 Each 3 No current facility-administered medications for this visit. Review of Systems Constitutional: Positive for weight loss. Negative for chills, diaphoresis, fever and malaise/fatigue. Respiratory: Negative for shortness of breath. Cardiovascular: Negative for chest pain and leg swelling. Gastrointestinal: Negative for abdominal pain, nausea and vomiting. Genitourinary: Negative for dysuria. Musculoskeletal: Negative for joint pain. Skin: Negative for rash. Neurological: Negative for dizziness and headaches. Endo/Heme/Allergies: Negative for environmental allergies. Psychiatric/Behavioral: Positive for depression. The patient is nervous/anxious. BP 146/86 Pulse 96 Ht 5' 10" (1.78m) Wt 255 lb (115.7kg) BMI 36.59 kg/(m^2). Physical Exam HENT: Head: Normocephalic and atraumatic. Right Ear: Tympanic membrane, ear canal and external ear normal. Left Ear: Tympanic membrane, ear canal and external ear normal. Nose: Nose normal. Mouth/Throat: Pharynx: Uvula midline. Eyes: General: Lids are normal. Conjunctiva/sclera: Conjunctivae normal. Pupils: Pupils are equal, round, and reactive to light. Neck: Trachea: Trachea normal. Cardiovascular: Rate and Rhythm: Normal rate and regular rhythm. Pulses: Normal pulses. Heart sounds: Normal heart sounds. Pulmonary: Effort: Pulmonary effort is normal. Breath sounds: Normal breath sounds. Abdominal: General: Bowel sounds are normal. Palpations: Abdomen is soft. Tenderness: There is no abdominal tenderness. There is no guarding. Musculoskeletal: Cervical back: Neck supple. Lymphadenopathy: Cervical: No cervical adenopathy. Skin: General: Skin is warm and dry. Neurological: Mental Status: He is alert and oriented to person, place, and time. Psychiatric: Mood and Affect: Affect normal. No visits with results within 1 Day(s) from this visit. Latest known visit with results is: Admission on 01/20/2022, Discharged on 01/27/2022 Component Date Value Ref Range Status Color 01/21/2022 Yellow Yellow Final Clarity 01/21/2022 Clear Clear Final Glucose, Urine 01/21/2022 2+ (A) Negative Final Bilirubin, Urine 01/21/2022 Negative Negative Final Ketones, Urine 01/21/2022 Trace (A) Negative Final Specific [place], Ur 01/21/2022 >=1.030 (A) 1.005 - 1.030 Final Hemoglobin/Blood,Ur 01/21/2022 1+ (A) Negative Final pH, Urine 01/21/2022 5.5 5.0 - 8.0 Final Protein, Urine 01/21/2022 Final Visible blood causes falsely elevated results for analyte Protein. Due to this limitation, Protein will not be reported for patients whose urine contains visible blood. Urobilinogen 01/21/2022 0.2 EU/dL 0.2-1.0 EU/dL Final Nitrites 01/21/2022 Negative Negative Final Leuk Esterase 01/21/2022 Negative Negative Final WBC, Urine 01/21/2022 0-5 /HPF 0-5 /HPF Final RBC, Urine 01/21/2022 0-3 /HPF 0-3 /HPF Final Bacteria 01/21/2022 Rare (A) None Seen /HPF Final Culture, Urine 01/21/2022 <10,000 CFU/ml Mixed microbiota (A) Final Comment: No further workup. Mixed microbiota can be due to urine contamination with skin bacteria at time of collection or presence of a long-term urinary catheter. If a new culture is needed, pleaseconsider re-education of the patient on proper midstream co llection technique or straight catheterization for urine collection. Glucose, Point of Care 01/20/2022 378 (A) 74 - 99 mg/dL Final Comment: Location:[facility], [address] [place] [address], [facility] The Accu-Chek Inform II glucose meter has not been approved for testing on patients receiving intensive medical intervention or therapy and results from this point of care glucose test should not be used for patient management decisions in these cases. Inaccurate results may also occur from other interfering factors, such as N-acetylcysteine (blood concentrations of greater than 5mg/dL), galactose, extremes of hematocrit (<10 or >65), or high doses of ascorbic acid (vitamin C) greater than 3mg/dL. Consider alternate testing mechanisms (e.g. core lab, blood gas instrument) in the above situations. Cholesterol, Total 01/20/2022 260 (A) <200 mg/dL Final <200 mg/dL, Desirable 200-239 mg/dL, Borderline high >239 mg/dL, High Triglyceride 01/20/2022 291 (A) <150 mg/dL Final <150 mg/dL, Normal 150-199 mg/dL, Borderline high 200-499 mg/dL, High >499 mg/dL, Very high HDL Cholesterol 01/20/2022 40 >39 mg/dL Final 40-59 mg/dL, Acceptable >59 mg/dL, High: Negative risk factor for coronary heart disease <40 mg/dL, Low: Positive risk factor for coronary heart disease Non HDL Cholesterol 01/20/2022 220 (A) <130 mg/dL Final <130 mg/dL, Optimal 130-159 mg/dL, Near optimal/above optimal 160-189 mg/dL, Borderline high 190-219 mg/dL, High >219 mg/dL, Very high Secondary prevention optimal non HDL Cholesterol levels are recommended to be <100 mg/dL Fasting Time 01/20/2022 Final Unknown VLDL Cholesterol 01/20/2022 58 (A) <30 mg/dL Final TC:HDL Ratio 01/20/2022 6.50 (A) <5.10 Final LDL Cholesterol 01/20/2022 162 (A) <100 mg/dL Final <100 mg/dL, Optimal 100-129 mg/dL, Near optimal/above optimal 130-159 mg/dL, Borderline high 160-189 mg/dL, High >189 mg/dL, Very high Secondary prevention optimal LDL Cholesterol levels are recommended to be < 70 mg/dL LDL:HDL Ratio 01/20/2022 4.05 (A) <2.54 Final Reference: 1. National Cholesterol Education Program ATP III Guideline At-A-Glance Quick Desk Reference: National Heart, Lung, and Blood [place]. National Institutes of Health. 2001: NIH Publication No. 01-3305. 2. An International Atherosclerosis Society position paper: global recommendations for the management of dyslipidemia: executive summary, Atherosclerosis. 2014: 232(2):410-413. GGT 01/19/2022 24 10 - 70 U/L Final HCV Quant RNA by PCR 01/21/2022 HCV RNA not detected by PCR. HCV RNA not detected by PCR. Final HBsAg 01/21/2022 Negative Negative Final Hep A Ab, IgM 01/21/2022 Negative Negative Final No evidence of recent infection with Hepatitis A virus. Hep B Core Ab, IgM 01/21/2022 Negative Negative Final No evidence of recent infection with Hepatitis B virus. Should recent infection be suspected, repeat testing may be considered 3-4 weeks after this draw. Syphilis Total Screen 01/21/2022 Nonreactive Nonreactive Final Syphilis Interpretation 01/21/2022 Cannot exclude recent Treponemal infection if specimen collectedwithin 7-10 days after appearance of suspect lesions or 2-3 weeks after an exposure. Clinical correlation is required. Final Glucose, Point of Care 01/21/2022 151 (A) 74 - 99 mg/dL Final Comment: Location:[place] [address] The Accu-Chek Inform II glucose meter has not been approved for testing on patients receiving intensive medical intervention or therapy and results from this point of care glucose test should not be used for patient management decisions in these cases. Inaccurate results may also occur from other interfering factors, such as N-acetylcysteine (blood concentrations of greater than 5mg/dL), galactose, extremes of hematocrit (<10 or >65), or high doses of ascorbic acid (vitamin C) greater than 3mg/dL. Consider alternate testing mechanisms (e.g. core lab, blood gas instrument) in the above situations. Glucose, Point of Care 01/21/2022 225 (A) 74 - 99 mg/dL Final Comment: Location:[place] [address] The Accu-Chek Inform II glucose meter has not been approved for testing on patients receiving intensive medical intervention or therapy and results from this point of care glucose test should not be used for patient management decisions in these cases. Inaccurate results may also occur from other interfering factors, such as N-acetylcysteine (blood concentrations of greater than 5mg/dL), galactose, extremes of hematocrit (<10 or >65), or high doses of ascorbic acid (vitamin C) greater than 3mg/dL. Consider alternate testing mechanisms (e.g. core lab, blood gas instrument) in the above situations. Glucose, Point of Care 01/20/2022 403 (A) 74 - 99 mg/dL Final Comment: Location:[place] [address] The Accu-Chek Inform II glucose meter has not been approved for testing on patients receiving intensive medical intervention or therapy and results from this point of care glucose test should not be used for patient management decisions in these cases. Inaccurate results may also occur from other interfering factors, such as N-acetylcysteine (blood concentrations of greater than 5mg/dL), galactose, extremes of hematocrit (<10 or >65), or high doses of ascorbic acid (vitamin C) greater than 3mg/dL. Consider alternate testing mechanisms (e.g. core lab, blood gas instrument) in the above situations. Glucose, Point of Care 01/21/2022 235 (A) 74 - 99 mg/dL Final Comment: Location:[facility], [address] [place] [address], [facility] The Accu-Chek Inform II glucose meter has not been approved for testing on patients receiving intensive medical intervention or therapy and results from this point of care glucose test should not be used for patient management decisions in these cases. Inaccurate results may also occur from other interfering factors, such as N-acetylcysteine (blood concentrations of greater than 5mg/dL), galactose, extremes of hematocrit (<10 or >65), or high doses of ascorbic acid (vitamin C) greater than 3mg/dL. Consider alternate testing mechanisms (e.g. core lab, blood gas instrument) in the above situations. Protein, Total 01/22/2022 5.7 (A) 6.3 - 8.0 g/dL Final Albumin 01/22/2022 3.2 (A) 3.9 - 4.9 g/dL Final Calcium, Total 01/22/2022 9.2 8.5 - 10.2 mg/dL Final Bilirubin, Total 01/22/2022 0.2 0.2 - 1.3 mg/dL Final Alkaline Phosphatase 01/22/2022 103 38 - 113 U/L Final AST 01/22/2022 10 (A) 14 - 40 U/L Final ALT 01/22/2022 9 (A) 10 - 54 U/L Final Glucose 01/22/2022 141 (A) 74 - 99 mg/dL Final The [place] Diabetes Association (ADA) provides guidance for cutoff values for fasting glucose andrandom glucose. The ADA defines fasting as no caloric intake for at least 8 hours. Fasting plasma glucose results between 100 to 125 mg/dL indicate increased risk for diabetes (prediabetes). Fasting plasma glucose results greater than or equal to 126 mg/dL meet the criteria for diagnosis of diabetes. In the absence of unequivocal hyperglycemia, results should be confirmed by repeat testing. In a patient with classic symptoms of hyperglycemia or hyperglycemic crisis, random plasma glucose results greater than or equal to 200 mg/dL meet the criteria for diagnosis of diabetes. Reference: Standards of Medical Care in Diabetes 2016, [place] [employer]. Diabetes Care. 2016.39(Suppl 1). BUN 01/22/2022 22 9 - 24 mg/dL Final Creatinine 01/22/2022 1.26 (A) 0.73 - 1.22 mg/dL Final Sodium 01/22/2022 140 136 - 144 mmol/L Final Potassium 01/22/2022 4.2 3.7 - 5.1 mmol/L Final Chloride 01/22/2022 104 97 - 105 mmol/L Final CO2 01/22/2022 26 22 - 30 mmol/L Final Anion Gap 01/22/2022 10 9 - 18 mmol/L Final Estimated Glomerular Filtration Ra* 01/22/2022 64 >=60 mL/min/1.73m Final Estimated Glomerular Filtration Rate (eGFR) is calculated using the 2020 CKD-EPI creatinine equation. This equation utilizes serum creatinine, sex, and age as parameters. The creatinine assay has traceable calibration to isotope dilution- mass spectrometry. Refer to KDIGO guidelines for clinical interpretation. In patients with unstable renal function, e.g. those with acute kidney injury, the eGFRmay not accurately reflect actual GFR. Glucose, Point of Care 01/21/2022 261 (A) 74 - 99 mg/dL Final Comment: Location:[address], [facility] The Accu-Chek Inform II glucose meter has not been approved for testing on patients receiving intensive medical intervention or therapy and results from this point of care glucose test should not be used for patient management decisions in these cases. Inaccurate results may also occur from other interfering factors, such as N-acetylcysteine (blood concentrations of greater than 5mg/dL), galactose, extremes of hematocrit (<10 or >65), or high doses of ascorbic acid (vitamin C) greater than 3mg/dL. Consider alternate testing mechanisms (e.g. core lab, blood gas instrument) in the above situations. Glucose, Point of Care 01/22/2022 122 (A) 74 - 99 mg/dL Final Comment: Location:[place] [address] The Accu-Chek Inform II glucose meter has not been approved for testing on patients receiving intensive medical intervention or therapy and results from this point of care glucose test should not be used for patient management decisions in these cases. Inaccurate results may also occur from other interfering factors, such as N-acetylcysteine (blood concentrations of greater than 5mg/dL), galactose, extremes of hematocrit (<10 or >65), or high doses of ascorbic acid (vitamin C) greater than 3mg/dL. Consider alternate testing mechanisms (e.g. core lab, blood gas instrument) in the above situations. Glucose, Point of Care 01/22/2022 200 (A) 74 - 99 mg/dL Final Comment: Location:[place] [address] The Accu-Chek Inform II glucose meter has not been approved for testing on patients receiving intensive medical intervention or therapy and results from this point of care glucose test should not be used for patient management decisions in these cases. Inaccurate results may also occur from other interfering factors, such as N-acetylcysteine (blood concentrations of greater than 5mg/dL), galactose, extremes of hematocrit (<10 or >65), or high doses of ascorbic acid (vitamin C) greater than 3mg/dL. Consider alternate testing mechanisms (e.g. core lab, blood gas instrument) in the above situations. Glucose, Point of Care 01/22/2022 291 (A) 74 - 99 mg/dL Final Comment: Location:[place] [address] The Accu-Chek Inform II glucose meter has not been approved for testing on patients receiving intensive medical intervention or therapy and results from this point of care glucose test should not be used for patient management decisions in these cases. Inaccurate results may also occur from other interfering factors, such as N-acetylcysteine (blood concentrations of greater than 5mg/dL), galactose, extremes of hematocrit (<10 or >65), or high doses of ascorbic acid (vitamin C) greater than 3mg/dL. Consider alternate testing mechanisms (e.g. core lab, blood gas instrument) in the above situations. Glucose, Point of Care 01/22/2022 242 (A) 74 - 99 mg/dL Final Comment: Location:[place] [address] The Accu-Chek Inform II glucose meter has not been approved for testing on patients receiving intensive medical intervention or therapy and results from this point of care glucose test should not be used for patient management decisions in these cases. Inaccurate results may also occur from other interfering factors, such as N-acetylcysteine (blood concentrations of greater than 5mg/dL), galactose, extremes of hematocrit (<10 or >65), or high doses of ascorbic acid (vitamin C) greater than 3mg/dL. Consider alternate testing mechanisms (e.g. core lab, blood gas instrument) in the above situations. Glucose, Point of Care 01/22/2022 303 (A) 74 - 99 mg/dL Final Comment: Location:[place] [address] The Accu-Chek Inform II glucose meter has not been approved for testing on patients receiving intensive medical intervention or therapy and results from this point of care glucose test should not be used for patient management decisions in these cases. Inaccurate results may also occur from other interfering factors, such as N-acetylcysteine (blood concentrations of greater than 5mg/dL), galactose, extremes of hematocrit (<10 or >65), or high doses of ascorbic acid (vitamin C) greater than 3mg/dL. Consider alternate testing mechanisms (e.g. core lab, blood gas instrument) in the above situations. Glucose, Point of Care 01/23/2022 89 74 - 99 mg/dL Final Comment: Location:[place] [address] The Accu-Chek Inform II glucose meter has not been approved for testing on patients receiving intensive medical intervention or therapy and results from this point of care glucose test should not be used for patient management decisions in these cases. Inaccurate results may also occur from other interfering factors, such as N-acetylcysteine (blood concentrations of greater than 5mg/dL), galactose, extremes of hematocrit (<10 or >65), or high doses of ascorbic acid (vitamin C) greater than 3mg/dL. Consider alternate testing mechanisms (e.g. core lab, blood gas instrument) in the above situations. Glucose, Point of Care 01/23/2022 197 (A) 74 - 99 mg/dL Final Comment: Location:[place] [address] The Accu-Chek Inform II glucose meter has not been approved for testing on patients receiving intensive medical intervention or therapy and results from this point of care glucose test should not be used for patient management decisions in these cases. Inaccurate results may also occur from other interfering factors, such as N-acetylcysteine (blood concentrations of greater than 5mg/dL), galactose, extremes of hematocrit (<10 or >65), or high doses of ascorbic acid (vitamin C) greater than 3mg/dL. Consider alternate testing mechanisms (e.g. core lab, blood gas instrument) in the above situations. Creatinine, Ur Random (UCRR) 01/23/2022 92.8 20.0 - 300.0 mg/dL Final Albumin, Urine Random 01/23/2022 1,334.3 mg/L Final Albumin/Creat Ratio 01/23/2022 1,438 (A) <30 mg/g Final Adult Male and Female Nephrotic Criteria: <30 mg/g is considered normal to mildly increased 30-300 mg/g is considered moderately increased >300 mg/g is considered severely increased KDIGO. (2013). KDIGO 2012 Clinical Practice Guideline for the Evaluation and Management of Chronic Kidney Disease. Official Journal of the International Society of Nephrology, 3(1), 1-150. Glucose, Point of Care 01/23/2022 290 (A) 74 - 99 mg/dL Final Comment: Location:[address], [facility] The Accu-Chek Inform II glucose meter has not been approved for testing on patients receiving intensive medical intervention or therapy and results from this point of care glucose test should not be used for patient management decisions in these cases. Inaccurate results may also occur from other interfering factors, such as N-acetylcysteine (blood concentrations of greater than 5mg/dL), galactose, extremes of hematocrit (<10 or >65), or high doses of ascorbic acid (vitamin C) greater than 3mg/dL. Consider alternate testing mechanisms (e.g. core lab, blood gas instrument) in the above situations. Glucose, Point of Care 01/23/2022 159 (A) 74 - 99 mg/dL Final Comment: Location:[address], [facility] The Accu-Chek Inform II glucose meter has not been approved for testing on patients receiving intensive medical intervention or therapy and results from this point of care glucose test should not be used for patient management decisions in these cases. Inaccurate results may also occur from other interfering factors, such as N-acetylcysteine (blood concentrations of greater than 5mg/dL), galactose, extremes of hematocrit (<10 or >65), or high doses of ascorbic acid (vitamin C) greater than 3mg/dL. Consider alternate testing mechanisms (e.g. core lab, blood gas instrument) in the above situations. Glucose, Point of Care 01/24/2022 76 74 - 99 mg/dL Final Comment: Location:[place] [address] The Accu-Chek Inform II glucose meter has not been approved for testing on patients receiving intensive medical intervention or therapy and results from this point of care glucose test should not be used for patient management decisions in these cases. Inaccurate results may also occur from other interfering factors, such as N-acetylcysteine (blood concentrations of greater than 5mg/dL), galactose, extremes of hematocrit (<10 or >65), or high doses of ascorbic acid (vitamin C) greater than 3mg/dL. Consider alternate testing mechanisms (e.g. core lab, blood gas instrument) in the above situations. Glucose, Point of Care 01/24/2022 152 (A) 74 - 99 mg/dL Final Comment: Location:[place] [address] The Accu-Chek Inform II glucose meter has not been approved for testing on patients receiving intensive medical intervention or therapy and results from this point of care glucose test should not be used for patient management decisions in these cases. Inaccurate results may also occur from other interfering factors, such as N-acetylcysteine (blood concentrations of greater than 5mg/dL), galactose, extremes of hematocrit (<10 or >65), or high doses of ascorbic acid (vitamin C) greater than 3mg/dL. Consider alternate testing mechanisms (e.g. core lab, blood gas instrument) in the above situations. Glucose, Point of Care 01/24/2022 204 (A) 74 - 99 mg/dL Final Comment: Location:[place] [address] The Accu-Chek Inform II glucose meter has not been approved for testing on patients receiving intensive medical intervention or therapy and results from this point of care glucose test should not be used for patient management decisions in these cases. Inaccurate results may also occur from other interfering factors, such as N-acetylcysteine (blood concentrations of greater than 5mg/dL), galactose, extremes of hematocrit (<10 or >65), or high doses of ascorbic acid (vitamin C) greater than 3mg/dL. Consider alternate testing mechanisms (e.g. core lab, blood gas instrument) in the above situations. Glucose, Point of Care 01/24/2022 168 (A) 74 - 99 mg/dL Final Comment: Location:[place] [address] The Accu-Chek Inform II glucose meter has not been approved for testing on patients receiving intensive medical intervention or therapy and results from this point of care glucose test should not be used for patient management decisions in these cases. Inaccurate results may also occur from other interfering factors, such as N-acetylcysteine (blood concentrations of greater than 5mg/dL), galactose, extremes of hematocrit (<10 or >65), or high doses of ascorbic acid (vitamin C) greater than 3mg/dL. Consider alternate testing mechanisms (e.g. core lab, blood gas instrument) in the above situations. Glucose, Point of Care 01/25/2022 65 74 - 99 mg/dL Final Comment: Location:[place] [address] The Accu-Chek Inform II glucose meter has not been approved for testing on patients receiving intensive medical intervention or therapy and results from this point of care glucose test should not be used for patient management decisions in these cases. Inaccurate results may also occur from other interfering factors, such as N-acetylcysteine (blood concentrations of greater than 5mg/dL), galactose, extremes of hematocrit (<10 or >65), or high doses of ascorbic acid (vitamin C) greater than 3mg/dL. Consider alternate testing mechanisms (e.g. core lab, blood gas instrument) in the above situations. Glucose, Point of Care 01/25/2022 84 74 - 99 mg/dL Final Comment: Location:[place] [address] The Accu-Chek Inform II glucose meter has not been approved for testing on patients receiving intensive medical intervention or therapy and results from this point of care glucose test should not be used for patient management decisions in these cases. Inaccurate results may also occur from other interfering factors, such as N-acetylcysteine (blood concentrations of greater than 5mg/dL), galactose, extremes of hematocrit (<10 or >65), or high doses of ascorbic acid (vitamin C) greater than 3mg/dL. Consider alternate testing mechanisms (e.g. core lab, blood gas instrument) in the above situations. Glucose, Point of Care 01/25/2022 351 (A) 74 - 99 mg/dL Final Comment: Location:[place] [address] The Accu-Chek Inform II glucose meter has not been approved for testing on patients receiving intensive medical intervention or therapy and results from this point of care glucose test should not be used for patient management decisions in these cases. Inaccurate results may also occur from other interfering factors, such as N-acetylcysteine (blood concentrations of greater than 5mg/dL), galactose, extremes of hematocrit (<10 or >65), or high doses of ascorbic acid (vitamin C) greater than 3mg/dL. Consider alternate testing mechanisms (e.g. core lab, blood gas instrument) in the above situations. Glucose, Point of Care 01/25/2022 95 74 - 99 mg/dL Final Comment: Location:[place] [address] The Accu-Chek Inform II glucose meter has not been approved for testing on patients receiving intensive medical intervention or therapy and results from this point of care glucose test should not be used for patient management decisions in these cases. Inaccurate results may also occur from other interfering factors, such as N-acetylcysteine (blood concentrations of greater than 5mg/dL), galactose, extremes of hematocrit (<10 or >65), or high doses of ascorbic acid (vitamin C) greater than 3mg/dL. Consider alternate testing mechanisms (e.g. core lab, blood gas instrument) in the above situations. COVID 19 Result 01/25/2022 SARS-CoV-2 (Agent of COVID-19) Not Detected by RT-PCR or equivalent method. Not Detected Final This test has been authorized by FDA under an Emergency Use Authorization (EUA). Protein, Total 01/25/2022 6.4 6.3 - 8.0 g/dL Final Albumin 01/25/2022 3.5 (A) 3.9 - 4.9 g/dL Final Calcium, Total 01/25/2022 9.3 8.5 - 10.2 mg/dL Final Bilirubin, Total 01/25/2022 0.2 0.2 - 1.3 mg/dL Final Alkaline Phosphatase 01/25/2022 109 38 - 113 U/L Final AST 01/25/2022 16 14 - 40 U/L Final ALT 01/25/2022 12 10 - 54 U/L Final Glucose 01/25/2022 136 (A) 74 - 99 mg/dL Final The [place] [employer] (ADA) provides guidance for cutoff values for fasting glucose andrandom glucose. The ADA defines fasting as no caloric intake for at least 8 hours. Fasting plasma glucose results between 100 to 125 mg/dL indicate increased risk for diabetes (prediabetes). Fasting plasma glucose results greater than or equal to 126 mg/dL meet the criteria for diagnosis of diabetes. In the absence of unequivocal hyperglycemia, results should be confirmed by repeat testing. In a patient with classic symptoms of hyperglycemia or hyperglycemic crisis, random plasma glucose results greater than or equal to 200 mg/dL meet the criteria for diagnosis of diabetes. Reference: Standards of Medical Care in Diabetes 2016, [place] [employer]. Diabetes Care. 2016.39(Suppl 1). BUN 01/25/2022 26 (A) 9 - 24 mg/dL Final Creatinine 01/25/2022 1.20 0.73 - 1.22 mg/dL Final Sodium 01/25/2022 140 136 - 144 mmol/L Final Potassium 01/25/2022 4.8 3.7 - 5.1 mmol/L Final Chloride 01/25/2022 100 97 - 105 mmol/L Final CO2 01/25/2022 27 22 - 30 mmol/L Final Anion Gap 01/25/2022 13 9 - 18 mmol/L Final Estimated Glomerular Filtration Ra* 01/25/2022 68 >=60 mL/min/1.73m Final Estimated Glomerular Filtration Rate (eGFR) is calculated using the 2020 CKD-EPI creatinine equation. This equation utilizes serum creatinine, sex, and age as parameters. The creatinine assay has traceable calibration to isotope dilution- mass spectrometry. Refer to KDIGO guidelines for clinical interpretation. In patients with unstable renal function, e.g. those with acute kidney injury, the eGFRmay not accurately reflect actual GFR. Glucose, Point of Care 01/25/2022 153 (A) 74 - 99 mg/dL Final Comment: Location:[address], [facility] The Accu-Chek Inform II glucose meter has not been approved for testing on patients receiving intensive medical intervention or therapy and results from this point of care glucose test should not be used for patient management decisions in these cases. Inaccurate results may also occur from other interfering factors, such as N-acetylcysteine (blood concentrations of greater than 5mg/dL), galactose, extremes of hematocrit (<10 or >65), or high doses of ascorbic acid (vitamin C) greater than 3mg/dL. Consider alternate testing mechanisms (e.g. core lab, blood gas instrument) in the above situations. Glucose, Point of Care 01/26/2022 104 (A) 74 - 99 mg/dL Final Comment: Location:[address], [facility] The Accu-Chek Inform II glucose meter has not been approved for testing on patients receiving intensive medical intervention or therapy and results from this point of care glucose test should not be used for patient management decisions in these cases. Inaccurate results may also occur from other interfering factors, such as N-acetylcysteine (blood concentrations of greater than 5mg/dL), galactose, extremes of hematocrit (<10 or >65), or high doses of ascorbic acid (vitamin C) greater than 3mg/dL. Consider alternate testing mechanisms (e.g. core lab, blood gas instrument) in the above situations. WBC 01/26/2022 5.07 3.70 - 11.00 k/uL Final RBC 01/26/2022 4.86 4.20 - 6.00 m/uL Final Hemoglobin 01/26/2022 14.1 13.0 - 17.0 g/dL Final Hematocrit 01/26/2022 43.5 39.0 - 51.0 % Final MCV 01/26/2022 89.5 80.0 - 100.0 fL Final MCH 01/26/2022 29.0 26.0 - 34.0 pg Final MCHC 01/26/2022 32.4 30.5 - 36.0 g/dL Final RDW-CV 01/26/2022 13.0 11.5 - 15.0 % Final Platelet Count 01/26/2022 278 150 - 400 k/uL Final MPV 01/26/2022 9.3 9.0 - 12.7 fL Final Absolute nRBC 01/26/2022 <0.01 <0.01 k/uL Final Glucose 01/26/2022 161 (A) 74 - 99 mg/dL Final The [place] [employer] (ADA) provides guidance for cutoff values for fasting glucose andrandom glucose. The ADA defines fasting as no caloric intake for at least 8 hours. Fasting plasma glucose results between 100 to 125 mg/dL indicate increased risk for diabetes (prediabetes). Fasting plasma glucose results greater than or equal to 126 mg/dL meet the criteria for diagnosis of diabetes. In the absence of unequivocal hyperglycemia, results should be confirmed by repeat testing. In a patient with classic symptoms of hyperglycemia or hyperglycemic crisis, random plasma glucose results greater than or equal to 200 mg/dL meet the criteria for diagnosis of diabetes. Reference: Standards of Medical Care in Diabetes 2016, [place] [employer]. Diabetes Care. 2016.39(Suppl 1). BUN 01/26/2022 26 (A) 9 - 24 mg/dL Final Creatinine 01/26/2022 1.19 0.73 - 1.22 mg/dL Final Sodium 01/26/2022 136 136 - 144 mmol/L Final Potassium 01/26/2022 5.0 3.7 - 5.1 mmol/L Final Chloride 01/26/2022 99 97 - 105 mmol/L Final CO2 01/26/2022 31 (A) 22 - 30 mmol/L Final Anion Gap 01/26/2022 6 (A) 9 - 18 mmol/L Final Calcium, Total 01/26/2022 9.4 8.5 - 10.2 mg/dL Final Estimated Glomerular Filtration Ra* 01/26/2022 69 >=60 mL/min/1.73m Final Estimated Glomerular Filtration Rate (eGFR) is calculated using the 2020 CKD-EPI creatinine equation. This equation utilizes serum creatinine, sex, and age as parameters. The creatinine assay has traceable calibration to isotope dilution- mass spectrometry. Refer to KDIGO guidelines for clinical interpretation. In patients with unstable renal function, e.g. those with acute kidney injury, the eGFRmay not accurately reflect actual GFR. Magnesium 01/26/2022 1.8 1.7 - 2.3 mg/dL Final Procalcitonin 01/26/2022 <0.06 <0.09 ng/mL Final For a guided interpretation of test results, please visit the Change in Procalcitonin Calculator, [email or web address]. CRP 01/26/2022 0.3 <0.9 mg/dL Final Glucose, Point of Care 01/26/2022 159 (A) 74 - 99 mg/dL Final Comment: Location:[place] [address] The Accu-Chek Inform II glucose meter has not been approved for testing on patients receiving intensive medical intervention or therapy and results from this point of care glucose test should not be used for patient management decisions in these cases. Inaccurate results may also occur from other interfering factors, such as N-acetylcysteine (blood concentrations of greater than 5mg/dL), galactose, extremes of hematocrit (<10 or >65), or high doses of ascorbic acid (vitamin C) greater than 3mg/dL. Consider alternate testing mechanisms (e.g. core lab, blood gas instrument) in the above situations. Glucose, Point of Care 01/26/2022 133 (A) 74 - 99 mg/dL Final Comment: Location:[place] [address] The Accu-Chek Inform II glucose meter has not been approved for testing on patients receiving intensive medical intervention or therapy and results from this point of care glucose test should not be used for patient management decisions in these cases. Inaccurate results may also occur from other interfering factors, such as N-acetylcysteine (blood concentrations of greater than 5mg/dL), galactose, extremes of hematocrit (<10 or >65), or high doses of ascorbic acid (vitamin C) greater than 3mg/dL. Consider alternate testing mechanisms (e.g. core lab, blood gas instrument) in the above situations. Glucose, Point of Care 01/26/2022 158 (A) 74 - 99 mg/dL Final Comment: Location:[place] [address] The Accu-Chek Inform II glucose meter has not been approved for testing on patients receiving intensive medical intervention or therapy and results from this point of care glucose test should not be used for patient management decisions in these cases. Inaccurate results may also occur from other interfering factors, such as N-acetylcysteine (blood concentrations of greater than 5mg/dL), galactose, extremes of hematocrit (<10 or >65), or high doses of ascorbic acid (vitamin C) greater than 3mg/dL. Consider alternate testing mechanisms (e.g. core lab, blood gas instrument) in the above situations. Glucose, Point of Care 01/27/2022 73 74 - 99 mg/dL Final Comment: Location:[place] [address] The Accu-Chek Inform II glucose meter has not been approved for testing on patients receiving intensive medical intervention or therapy and results from this point of care glucose test should not be used for patient management decisions in these cases. Inaccurate results may also occur from other interfering factors, such as N-acetylcysteine (blood concentrations of greater than 5mg/dL), galactose, extremes of hematocrit (<10 or >65), or high doses of ascorbic acid (vitamin C) greater than 3mg/dL. Consider alternate testing mechanisms (e.g. core lab, blood gas instrument) in the above situations. Glucose, Point of Care 01/27/2022 170 (A) 74 - 99 mg/dL Final Comment: Location:[address], [facility] The Accu-Chek Inform II glucose meter has not been approved for testing on patients receiving intensive medical intervention or therapy and results from this point of care glucose test should not be used for patient management decisions in these cases. Inaccurate results may also occur from other interfering factors, such as N-acetylcysteine (blood concentrations of greater than 5mg/dL), galactose, extremes of hematocrit (<10 or >65), or high doses of ascorbic acid (vitamin C) greater than 3mg/dL. Consider alternate testing mechanisms (e.g. core lab, blood gas instrument) in the above situations. Procedure Notes: New medication(s) prescribed today: None. Counseling completed in adopting health behaviors such as avoiding excessive alcohol use, avoid tobacco use, improve nutrition, and engage in physical activities. Copy of written care plan, clinical summary, treatment plan, new medications, goals, and self management requirements were given to patient. Assessment/Plan: ASSESSMENT/PLAN: 1. Hypertension, essential - ICD9: 401.9, ICD10: I10 (primary diagnosis) - suboptimal control - Encouraged dietary sodium restriction/DASH diet - Recommended regular aerobic exercise. - Recommend home blood pressure monitoring, to bring results in on next visit - Discussed need and benefit for weight loss. - Follow up in 1 month for BP recheck. - Goal of BP <130/80 - LISINOPRIL 5 MG TABLET 2. Bilateral leg edema - ICD9: 782.3, ICD10: R60.0 Controlled 3. Diabetes mellitus due to underlying condition, uncontrolled, with hyperglycemia (HCC) - ICD9: 249.81, 790.29, ICD10: E08.65 Improving - HGBA1C B/O (AG) 10.7 - ACCUCHECK B/O 384 - CONSULT TO ENDOCRINOLOGY - TRULICITY 1.5 MG/0.5 ML SUBCUTANEOUS PEN INJECTOR - INSULIN GLARGINE (U-100) 100 UNIT/ML (3 ML) SUBCUTANEOUS PEN 4. H/O medication noncompliance - ICD9: V15.81, ICD10: Z91.14 Encourage compliance with medications 5. Microalbuminuria - ICD9: 791.0, ICD10: R80.9 Follow-up with nephrology 6. Hyponatremia - ICD9: 276.1, ICD10: E87.1 Follow-up with nephrology 7. Vitamin D deficiency - ICD9: 268.9, ICD10: E55.9 Patient finishing up high-dose vitamin D - VITAMIN D 25 HYDROXY 8. MEKHI (obstructive sleep apnea) - ICD9: 327.23, ICD10: G47.33 PAP titration pending from October 2021 9. Mixed hyperlipidemia - ICD9: 272.2, ICD10: E78.2 - suboptimal control and - to be determined upon return of lab results - Encouraged following a low fat, low cholesterol diet. - Discussed the benefits of regular aerobic exercise and weight loss. - LIPID PANEL BASIC patient indicates he is not taking Lipitor 10. 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 Malignant neoplasm of rectum (HCC) - ICD9: 154.1, ICD10: C20 Follow-up with general surgeon and oncologist 12. Benign prostatic hyperplasia, unspecified whether lower urinary tract symptoms present - ICD9: 600.00, ICD10: N40.0 Follow-up with urology 13. Anxiety and depression - ICD9: 300.00, 311, ICD10: F41.9, F32.A Encourage patient to follow-up with psychiatry 14. Marijuana use - ICD9: 305.20, ICD10: F12.90 Use has increased 15. Obesity, Class II, BMI 35-39.9 - ICD9: 278.00, ICD10: E66.9 Stable - Behavioral intervention 16. Mood disorder (HCC) - ICD9: 296.90, ICD10: F39 Follow-up with psychiatry 17. Stage 3a chronic kidney disease (HCC) - ICD9: 585.3, ICD10: N18.31 - Following with nephrology: Yes - Follow up with nephrology 18. Encounter for immunization - ICD9: V03.89, ICD10: Z23 - INFLUENZA VACCINE QUADRIVALENT 6 MO - 64 YRS IM Belgica Vega DO Return in about 1 month (around 03/31/2022) for Visit for re-check, Diabetes, Hypertension. If symptoms persist, worsen, or no improvement, patient is to call 911 and/or go to the nearest ED. documented in this encounterVan [facility]11-[facility]22 Miscellaneous Notes* Telephone Encounter - Stephanie Walker - 02/23/2022 1:30 PM EST Tried to reach out to schedule colonoscopy screening and the voicemail was full and was unable to leave message. Stephanie Walker February 23, 2022 1:31 PM documented in this encounterVan Wert [facility]11-21-2022 Miscellaneous Notes* Telephone Encounter - Emma Mari - 02/21/2022 4:56 PM EST No Show Documentation José Manuel Ashton no showed for an appointment on 02/21/2022 with Janie Pickett APRN.PRODUCTION INTERN at 3:00 pm. He was scheduled for a follow up appointment. I called the patient regarding his missed appointment. Unable to contact patient, the voicemail boxwas full. José Manuel stated the reason that he missed his appointment was because N/A . Resources discussed/offered to patient: N/A No show determined to be fault of patient: Yes This is the patients first no show in the last 12 months. Patient was rescheduled for N/A. Letter mailed : Yes Is this the Third or Fourth "No Show"? No Emma Mari February 21, 2022 4:57 PM documented in this encounterVan [facility]ert [facility]11-21-2022 History of Present illness Narrative* Jen Bergman RN - 02/21/2022 3:24 PM EST TRANSITIONAL CARE MANAGEMENT (TCM) COMMUNITY MONITORING PROGRAM - [place] SUMMARY: Pt discharged from [facility] on 02/15/22. Pt discharged from [facility] on 01/20/22. Admitted for: Hospital Problem List Marijuana use Obesity, Class II, BMI 35-39.9 Type 2 diabetes mellitus, with long-term current use of insulin (HCC) Anxiety and depression Moderate episode of recurrent major depressive disorder (HCC) Mixed hyperlipidemia Hypertension, essential H/O medication noncompliance Benign prostatic hyperplasia Stage 3a chronic kidney disease (HCC) Hyperglycemia Alcohol dependence (HCC) Constipation Abdominal discomfort Resolved Contact made with patient: No - next outreach attempt will be on next business day Outreach ended * Jen Bergman RN - 02/21/2022 3:20 PM EST TRANSITION CARE MANAGEMENT (TCM) FOLLOW-UP NOTE Patient identified by name and date of : YES [facility]oke [facility] Summary: PCC called SNF re pt status. Pt was D/C'd on 02/15/22. Signature Jen Bergman RN February 21, 2022 documented in this encounterVan [facility]ert [facility]11-21-2022 History of Present illness Narrative* Janie Pickett AIDAN.PRODUCTION INTERN - 02/21/2022 11:29 AM EST Subjective Important Lab History: HBA1C: 02/2020: 13.2%, 05/2020: 10.5%, 09/2020: 11.6%, 10/2020: 12.3%, 01/2021: 11.2%, 04/2021: 13%, 06/2021: 11.5%, 07/2021: 11.6%, 08/2021: 12.7%, 01/2022: 13.4 Thyroid Function Testin02/2020: TSH 1.16 (0.27-4.2 uIU/mL), 10/2020: TSH 1.05 (0.27-4.2 uIU/mL), 04/2021: TSH 1.45 (0.27-4.2 uIU/mL), 07/2021: TSH 1.66 (0.27- 4.2 uIU/mL), 01/2022: TSH 1.87 (0.27-4.2 uIU/mL), Renal Function Testin07/2020: Creatinine 1.31 eGFR 56, 10/2020: Creatinine 1.31 eGFR 56, 01/2021: Creatinine 1.19, 04/2021: Creatinine 1.07, 07/2021: Creatinine 1.36 eGFR 59, 01/2022: Creatinine 1.19 Urine for Microalbumin: 05/2020: Microalbumin:Creatinine Ratio 914, 10/2020: Microalbumin:Creatinine Ratio 457, 04/2021: Microalbumin:Creatinine Ratio 881, 07/2021; Microalbumin:Creatinine Ratio 1237 done by Primary Care Provider, 01/2022: Microalbumin:Creatinine Ratio 1438 patient had consulted nephrology at some point Lipid Profile: 05/2020: TC 228 HDL 41 LDL 127 TG 302, 10/2020: TC 228 HDL 41 LDL 127 TG 302, 04/2021: TC 259 HDL 45 LDL 147 TG 336, 07/2021: TC 280 HDL 63 LDL 160 TG 284, 01/2022: TC 260 HDL 40 LDL 162 TG 291 Liver Profile: 02/2020: Alkaline Phosphatase 117 (38-113), AST and ALT ok, 10/2020: AST ALT AlkalinePhosphatase ok, 01/2021: Alkaline Phosphatase 129 (46- 116), AST and ALT ok, 04/2021: AST ALT Alkaline Phosphatase ok, 07/2021: Alkaline Phosphatase 122 (38-113), AST and ALT ok, 01/2022: AST ALT Alkaline Phosphatase ok Moved from [place] at some point. Was taking actos plus Metformin. Eventually Primary Care Provider Added basal insulin. 10/2020: first time office visit with Janie Pickett APRN.LEX for diabetes management. Previous diabetes related labs from [employer] and [employer] systems reviewed prior to today's office visit. Any changes made at our last diabetes management visit were abstracted accordingly (if applicable). Today's Office Visit: Orals: Actos 45 mg daily, Metformin ER 500 mg 2 tabs at breakfast and dinner, Basal insulin (dosed in units) Supper dose: Other: trulicity 1.5 mg, "self monitoring blood glucose data": testing often times 2x/day, admits he won't test more than than, past weeks readings have significantly improved from baseline, most readings under 220. Not ableto get CGM covered, not on insulin 3x/day. Diet: liberal Exercise: limited Denies frequent periods of hypoglycemia I reviewed and updated the below Review of Systems for today's office visit. 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 Ahmadi FAMILY HISTORY Problem Relation Age of Onset other (Heart stroke) Mother other (Glaucoma lung cancer) Father Glaucoma Sister Glaucoma Brother Social History Tobacco Use Smoking status: Former Packs/day: 1.00 Years: 37.00 Pack years: 37.00 Types: Cigarettes Quit date: 04/03/2010 Years since quittin.8 Smokeless tobacco: Never Tobacco comments: Smokes [place] Vaping Use Vaping Use: Never used Substance Use Topics Alcohol use: Not Currently Drug use: Yes Types: Marijuana Comment: daily Current Meds tamsulosin (FLOMAX) 0.4 mg Take 1 capsule by mouth once daily. atorvastatin (LIPITOR) 40 mg tablet Take 1 tablet by mouth daily at bedtime. ergocalciferol 50,000 unit capsule (VITAMIN D2, DRISDOL) Take 1 capsule by mouth one time a week. lisinopril (ZESTRIL, PRINIVIL) 20 mg tablet Take 1 tablet by mouth once daily. venlafaxine ER (EFFEXOR XR) 75 mg 24 hr capsule Take 1 capsule by mouth daily with breakfast. dulaglutide (TRULICITY) 1.5 mg/0.5 mL pen injector Inject 1.5 mg subcutaneously one time a week. pioglitazone (ACTOS) 45 mg tablet Take 1 tablet by mouth once daily. metFORMIN ER (GLUCOPHAGE XR) 500 mg 24 hr tablet Two tablets before breakfast and before supper Insulin [place], Disposable, (COMFORT EZ PEN NEEDLES) 29 gauge x 1/2" 1 Each once daily. insulin glargine (LANTUS SOLOSTAR, BASAGLAR KWIKPEN) 100 unit/mL (3 mL) Inject 26 Units subcutaneously daily at bedtime. blood sugar diagnostic (BLOOD GLUCOSE TEST) test strip 3x/day Blood-Glucose Meter monitoring kit For monitoring sugars 3x/day (patient on insulin) Lancets lancets Use as instructed 3x/day alcohol swabs (ALCOHOL PREP PADS) Apply 1 application to affected area as directed. Objective There were no vitals taken for this visit. Physical Exam documented in this encounterVan [facility]10-28-2022 History of Present illness Narrative* Jen Bergman RN - 01/28/2022 8:42 AM EDT TRANSITION CARE MANAGEMENT (TCM) DISCHARGE TO POST ACUTE FACILITY POST ACUTE TRANSFER SUMMARY: -Pt discharged from [facility] on 01/27/22. RISK 29 -Post Acute Facility Admitted to SNF. 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 documented in this encounterVan Wert [facility]10-27-2022 NoteHNO ID: [id number] Author: Corky Rodarte MD Service: Urology Author Type: Physician Type: Progress Notes Filed: 01/27/2022 1:17 PM Note Text: 1:16 PMINPATIENT PROGRESS NOTE SERVICE DATE: 01/27/2022 SERVICE TIME: 1:16 PM ASSESSMENT AND PLAN Assessment : bph, luts Plan ; current care, tolerating flomax SUBJECTIVE CHIEF COMPLAINT: depression PRIMARY SERVICE: psych INTERVAL HPI: no new complaints REVIEW OF SYSTEMS GENERAL: unchanged MEDICATIONS: Current Facility-Administered Medications Medication Dose Route Frequency haloperidol 5 mg tab(s) (HALDOL) 5 mg ORAL q 4 H PRN Or haloperidol lactate 5 mg short-acting injection (HALDOL) 5 mg INTRAMUSCULAR q 4 H PRN benztropine 2 mg injection (COGENTIN) 2 mg INTRAMUSCULAR q 30 MIN PRN diphenhydrAMINE 50 mg injection (BENADRYL) 50 mg INTRAMUSCULAR q 30 MIN PRN dextrose 40 % 15 g 15 g ORAL PRN Or glucagon 1 mg injection 1 mg INTRAMUSCULAR PRN Or dextrose 10% iv bolus 12.5 g INTRAVENOUS PRN aluminum-magnesium hydroxide-simethicone 200-200-20 mg/5 mL 30 mL (MAALOX,MYLANTA,MAG-AL PLUS) 30 mL ORAL DAILY PRN acetaminophen 650 mg tab(s) (TYLENOL) 650 mg ORAL q 6 H PRN insulin lispro injection (rapid acting) (ADMELOG) SUBCUTANEOUS AT BEDTIME lisinopril 20 mg tab(s) (ZESTRIL, PRINIVIL) 20 mg ORAL DAILY insulin lispro injection (rapid acting) (ADMELOG) SUBCUTANEOUS w MEALS pioglitazone (ACTOS) tab(s) 45 mg 45 mg ORAL DAILY docusate sodium 100 mg cap(s) (COLACE) 100 mg ORAL BID polyethylene glycol 3350 17 g packet (MIRALAX, GLYCOLAX) 17 g ORAL DAILY melatonin 3 mg tab(s) 3 mg ORAL DAILY (8 PM) gabapentin 100 mg cap(s) (NEURONTIN) 100 mg ORAL TID PRN atorvastatin 40 mg tab(s) (LIPITOR) 40 mg ORAL AT BEDTIME tamsulosin 0.8 mg cap(s) (FLOMAX) 0.8 mg ORAL AT BEDTIME divalproex ER 500 mg tab(s) (DEPAKOTE ER) 500 mg ORAL DAILY venlafaxine ER 75 mg cap(s) (EFFEXOR XR) 75 mg ORAL DAILY WITH BREAKFAST metFORMIN ER 500 mg tab(s) (GLUCOPHAGE XR) 500 mg ORAL BID w MEALS ergocalciferol (vitamin D2) 50,000 Units cap(s) (DRISDOL) 50,000 Units ORAL 1/WK insulin glargine 27 Units pen (long acting) (LANTUS SOLOSTAR, BASAGLAR KWIKPEN) 27 Units SUBCUTANEOUS AT BEDTIME OBJECTIVE PHYSICAL EXAM: Patient Vitals for the past 24 hrs: BP Temp Temp src Pulse Resp SpO2 01/27/22 0858 167/79 -- -- 90 -- -- 01/27/22 0856 167/79 36.5 ?C (97.7 ?F) -- 90 20 97 % 01/26/22 2019 143/72 36.7 ?C (98.1 ?F) Oral 83 14 95 % 01/26/22 1534 120/83 36.4 ?C (97.5 ?F) -- 88 -- 96 % Body mass index is 36.59 kg/m?. GENERAL: No Distress HEAD/SINUSES: No significant findings EARS: External ears normal, canals clear NECK: No jugulovenous distention, Supple ABDOMEN: Abdomen soft, non-tender, BS normal, No masses or organomegaly EXTREMITIES: No ulcers NEURO: Exam deferred DATA: Diagnostic tests reviewed for today's visit: Most recent labs SIGNATURE: Corky Rodarte MD PATIENT NAME: José Manuel Ashton DATE: January 27, 2022 TIME: 1:16 PM PAGER: [facility]orC[facility] [id number] NoteHNO ID: [id number] Author: Luis Carlos Short Jr., MD Service: Psychiatry Author Type: Physician Type: Progress Notes Filed: 01/26/2022 5:16 PM Note Text: PROGRESS NOTE BEHAVIORAL HEALTH SERVICE DATE: 01/26/2022 SERVICE TIME: 11:24 AM The Interdisciplinary team met and reviewed treatment goals and discharge planning. Subjective Patient seen in his room sitting in wheelchair. He reports feeling "ok" today. Reports sleep was fine, appetite has been normal. Notes he went to groups yesterday, is unsure if he learned anything from them. Reports that he feels he is making some progress since being here; discussed improvements in blood sugars and medications for depression and anger. Reports continued chronic pain, which he notes medications have not helped in the past, however denies having tried physical therapy for it. Notes he has a slight cold. He is agreeable to discharge to SNF likely tomorrow. Objective PHYSICAL EXAM: BP 154/94 Pulse 89 Temp 36.3 ?C (97.3 ?F) (Oral) Resp 17 Ht 177.8 cm (5' 10") Wt 115.7 kg (255 lb 0.3 oz) SpO2 95% BMI 36.59 kg/m? MENTAL STATUS EXAMINATION: Appearance: Appears stated age, casually dressed, disheveled hair, in wheelchair. Behavior: Calm, cooperative. Orientation: Person, Place, Time and Situation Speech/Language: More talkative today, with normal tone, volume, rate and syntax. Mood/Affect: "ok" / less restricted today, more conversant. Thought Form: Coherent Thought Content: Coherent, no AVH and does not appear internally stimulated. Help-seeking help-rejecting. Suicidal Ideations: No suicidal ideation, intent or plan. Homicidal Ideations: No homicidal ideation, intent or plan. Insight: Fair Judgment: Fair Memory/Cognition: grossly intact Psychomotor: Psychomotor activity was normal. NEW PROBLEMS ON UNIT SINCE LAST ENCOUNTER: None Current Facility-Administered Medications Medication Dose Route Frequency haloperidol 5 mg tab(s) (HALDOL) 5 mg ORAL q 4 H PRN Or haloperidol lactate 5 mg short-acting injection (HALDOL) 5 mg INTRAMUSCULAR q 4 H PRN benztropine 2 mg injection (COGENTIN) 2 mg INTRAMUSCULAR q 30 MIN PRN diphenhydrAMINE 50 mg injection (BENADRYL) 50 mg INTRAMUSCULAR q 30 MIN PRN dextrose 40 % 15 g 15 g ORAL PRN Or glucagon 1 mg injection 1 mg INTRAMUSCULAR PRN Or dextrose 10% iv bolus 12.5 g INTRAVENOUS PRN aluminum-magnesium hydroxide-simethicone 200-200-20 mg/5 mL 30 mL (MAALOX,MYLANTA,MAG-AL PLUS) 30 mL ORAL DAILY PRN acetaminophen 650 mg tab(s) (TYLENOL) 650 mg ORAL q 6 H PRN insulin lispro injection (rapid acting) (ADMELOG) SUBCUTANEOUS AT BEDTIME lisinopril 20 mg tab(s) (ZESTRIL, PRINIVIL) 20 mg ORAL DAILY insulin lispro injection (rapid acting) (ADMELOG) SUBCUTANEOUS w MEALS pioglitazone (ACTOS) tab(s) 45 mg 45 mg ORAL DAILY docusate sodium 100 mg cap(s) (COLACE) 100 mg ORAL BID polyethylene glycol 3350 17 g packet (MIRALAX, GLYCOLAX) 17 g ORAL DAILY melatonin 3 mg tab(s) 3 mg ORAL DAILY (8 PM) gabapentin 100 mg cap(s) (NEURONTIN) 100 mg ORAL TID PRN atorvastatin 40 mg tab(s) (LIPITOR) 40 mg ORAL AT BEDTIME tamsulosin 0.8 mg cap(s) (FLOMAX) 0.8 mg ORAL AT BEDTIME divalproex ER 500 mg tab(s) (DEPAKOTE ER) 500 mg ORAL DAILY venlafaxine ER 75 mg cap(s) (EFFEXOR XR) 75 mg ORAL DAILY WITH BREAKFAST metFORMIN ER 500 mg tab(s) (GLUCOPHAGE XR) 500 mg ORAL BID w MEALS ergocalciferol (vitamin D2) 50,000 Units cap(s) (DRISDOL) 50,000 Units ORAL 1/WK insulin glargine 27 Units pen (long acting) (LANTUS SOLOSTAR, BASAGLAR KWIKPEN) 27 Units SUBCUTANEOUS AT BEDTIME DATA: Diagnostic tests reviewed for today's visit: Most recent labs Assessment/Plan DIAGNOSIS: (as per primary team) PRIMARY: Mood Disorder Unspecified R/o substance induced mood disorder or mood disorder related to medical condition Cannabis use disorder R/o Alcohol use disorder Medical: insulin dependent T2DM, HTN, HLD, CKDIII, rectal cancer, 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 RISK ASSESSMENT: Suicide: low Homicide: low Deliberate Self-Harm: moderate Aggression: moderate Imminent Physical Self Impairment: moderate INFORMED CONSENT: Yes, completed with the Patient. Discussed the risks, benefits and alternatives to the medication(s) recommended. Consent was given. INTERVENTION: Biological: -endocrinology following -podiatry following -internal medicine following -urology following -Continue Venlafaxine 75 mg daily today (started at 37.5 mg daily on 01/21) -Continue Depakote ER 500 mg daily; monitor platelets, liver enzymes, ammonia, and valproic acid level -melatonin 3 mg at bedtime Psychological: milieu Social: groups DISCHARGE PLANNING: Possibly tomorrow to SNF; will continue to monitor cold symptoms prior to discharge (COVID test negative yesterday) SIGNATURE: Sarah Ventura (more content not included)...[facility] 01-26-2022 NoteHNO ID: [id number] Author: Mimi Benton RN Service: ? Author Type: Registered Nurse Type: Progress Notes Filed: 01/26/2022 5:38 AM Note Text: Assumed care of patient at 1930. He is alert and oriented, pleasant and cooperative. Pleasantly social with staff and peers. Denies SI/HI/AVH. Cooperative with HS meds, then retired to bed after snack, where he appeared to sleep through the night without sign of distress.[facility] 01-25-2022 NoteHNO ID: [id number] Author: Brigitte Carlisle MD Service: Psychiatry Author Type: Resident Type: Progress Notes Filed: 01/25/2022 11:32 AM Note Text: Attestation signed by Luis Carlos Short Jr., MD at 01/25/2022 12:55 PM Patient examined and chart reviewed. Patient evaluated and history and exam reviewed with resident physician. Her exam findings, diagnosis, and treatment plan were formulated under my direct supervision and I agree with the findings herein. Appreciate endocrine care. Will reach out to patient's sister Janell to update with treatment plan, per patient's request. Aim d/c to [facility] rehab facility within next few days. LuisC arlos Short Jr, MD January 25, 2022 12:55 PM PROGRESS NOTE BEHAVIORAL HEALTH SERVICE DATE: 01/25/2022 SERVICE TIME: 10:20 AM The Interdisciplinary team met and reviewed treatment goals and discharge planning. Subjective Patient seen in [facility], disheveled hair and is sitting alone eating. Reports that he is doing "ok" today. Wanting the team to call his sister Janell and have her updated on the plan. Is ok with going to SNF as long as it is not the facility in [place]. Denies any issues with his medications. Feels that he is slowly improving. Does not report SI/AVH. Sister's number (Janell) [phone] Objective PHYSICAL EXAM: BP 134/70 Pulse 86 Temp 36.9 ?C (98.4 ?F) (Oral) Resp 15 Ht 177.8 cm (5' 10") Wt 115.7 kg (255 lb 0.3 oz) SpO2 95% BMI 36.59 kg/m? MENTAL STATUS EXAMINATION: Appearance: Appears stated age, in hospital gown, disheveled hair, in wheelchair sitting at table in common area Behavior: Calm, cooperative, downward gaze, eye contact minimal but improving Orientation: Person, Place, Time and Situation Speech/Language: Quiet, soft, low tone, minimal responses to questions. Mood/Affect: "ok" with restricted and withdrawn Thought Form: Coherent Thought Content: Coherent, no AVH and does not appear internally stimulated. Help-seeking help-rejecting. Suicidal Ideations: No suicidal ideation, intent or plan. Homicidal Ideations: No homicidal ideation, intent or plan. Insight: Limited Judgment: Limited Memory/Cognition: grossly intact Psychomotor: Psychomotor activity was normal. NEW PROBLEMS ON UNIT SINCE LAST ENCOUNTER: None Current Facility-Administered Medications Medication Dose Route Frequency haloperidol 5 mg tab(s) (HALDOL) 5 mg ORAL q 4 H PRN Or haloperidol lactate 5 mg short-acting injection (HALDOL) 5 mg INTRAMUSCULAR q 4 H PRN benztropine 2 mg injection (COGENTIN) 2 mg INTRAMUSCULAR q 30 MIN PRN diphenhydrAMINE 50 mg injection (BENADRYL) 50 mg INTRAMUSCULAR q 30 MIN PRN dextrose 40 % 15 g 15 g ORAL PRN Or glucagon 1 mg injection 1 mg INTRAMUSCULAR PRN Or dextrose 10% iv bolus 12.5 g INTRAVENOUS PRN aluminum-magnesium hydroxide-simethicone 200-200-20 mg/5 mL 30 mL (MAALOX,MYLANTA,MAG-AL PLUS) 30 mL ORAL DAILY PRN acetaminophen 650 mg tab(s) (TYLENOL) 650 mg ORAL q 6 H PRN insulin lispro injection (rapid acting) (ADMELOG) SUBCUTANEOUS AT BEDTIME lisinopril 20 mg tab(s) (ZESTRIL, PRINIVIL) 20 mg ORAL DAILY insulin lispro injection (rapid acting) (ADMELOG) SUBCUTANEOUS w MEALS pioglitazone (ACTOS) tab(s) 45 mg 45 mg ORAL DAILY docusate sodium 100 mg cap(s) (COLACE) 100 mg ORAL BID polyethylene glycol 3350 17 g packet (MIRALAX, GLYCOLAX) 17 g ORAL DAILY melatonin 3 mg tab(s) 3 mg ORAL DAILY (8 PM) gabapentin 100 mg cap(s) (NEURONTIN) 100 mg ORAL TID PRN atorvastatin 40 mg tab(s) (LIPITOR) 40 mg ORAL AT BEDTIME tamsulosin 0.8 mg cap(s) (FLOMAX) 0.8 mg ORAL AT BEDTIME divalproex ER 500 mg tab(s) (DEPAKOTE ER) 500 mg ORAL DAILY venlafaxine ER 75 mg cap(s) (EFFEXOR XR) 75 mg ORAL DAILY WITH BREAKFAST metFORMIN ER 500 mg tab(s) (GLUCOPHAGE XR) 500 mg ORAL BID w MEALS ergocalciferol (vitamin D2) 50,000 Units cap(s) (DRISDOL) 50,000 Units ORAL 1/WK insulin glargine 27 Units pen (long acting) (LANTUS SOLOSTAR, BASAGLAR KWIKPEN) 27 Units SUBCUTANEOUS AT BEDTIME DATA: Diagnostic tests reviewed for today's visit: Most recent labs Assessment/Plan DIAGNOSIS: (as per primary team) PRIMARY: Mood Disorder Unspecified R/o substance induced mood disorder or mood disorder related to medical condition Cannabis use disorder R/o Alcohol use disorder Medical: insulin dependent T2DM, HTN, HLD, CKDIII, rectal cancer, 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 RISK ASSESSMENT: Suicide: low Homicide: low Deliberate Self-Harm: moderate Aggression: moderate Imminent Physical Self Impairment: moderate INFORMED CONSENT: Yes, completed with the Patient. Discussed the risks, benefits and alternatives to the (more content not included)...[facility] 01-25-2022 NoteHNO ID: [id number] Author: Mimi Benton RN Service: ? Author Type: Registered Nurse Type: Progress Notes Filed: 01/25/2022 7:16 AM Note Text: Assumed care of patient at 1930. Patient is alert and oriented, poor eye contact. Speech clear and coherent. Denies SI/HI/AVH. Makes needs known, voices no complaints. Appears to have slept through the night without distress. Patient post void bladder scan at 0600 was scanned twice at 0ml. [facility] [id number] NoteHNO ID: [id number] Author: Corky Rodarte MD Service: Urology Author Type: Physician Type: Progress Notes Filed: 01/24/2022 6:38 PM Note Text: 6:36 PMINPATIENT PROGRESS NOTE SERVICE DATE: 01/24/2022 SERVICE TIME: 6:36 PM ASSESSMENT AND PLAN Assessment ; bph, luts Plan : current care, continue tamsulosin,will follow SUBJECTIVE CHIEF COMPLAINT: depression PRIMARY SERVICE: psych INTERVAL HPI: denies dysuria of dizzzyness REVIEW OF SYSTEMS GENERAL: unchanged MEDICATIONS: Current Facility-Administered Medications Medication Dose Route Frequency haloperidol 5 mg tab(s) (HALDOL) 5 mg ORAL q 4 H PRN Or haloperidol lactate 5 mg short-acting injection (HALDOL) 5 mg INTRAMUSCULAR q 4 H PRN benztropine 2 mg injection (COGENTIN) 2 mg INTRAMUSCULAR q 30 MIN PRN diphenhydrAMINE 50 mg injection (BENADRYL) 50 mg INTRAMUSCULAR q 30 MIN PRN dextrose 40 % 15 g 15 g ORAL PRN Or glucagon 1 mg injection 1 mg INTRAMUSCULAR PRN Or dextrose 10% iv bolus 12.5 g INTRAVENOUS PRN aluminum-magnesium hydroxide-simethicone 200-200-20 mg/5 mL 30 mL (MAALOX,MYLANTA,MAG-AL PLUS) 30 mL ORAL DAILY PRN acetaminophen 650 mg tab(s) (TYLENOL) 650 mg ORAL q 6 H PRN insulin lispro injection (rapid acting) (ADMELOG) SUBCUTANEOUS AT BEDTIME lisinopril 20 mg tab(s) (ZESTRIL, PRINIVIL) 20 mg ORAL DAILY insulin lispro injection (rapid acting) (ADMELOG) SUBCUTANEOUS w MEALS pioglitazone (ACTOS) tab(s) 45 mg 45 mg ORAL DAILY docusate sodium 100 mg cap(s) (COLACE) 100 mg ORAL BID polyethylene glycol 3350 17 g packet (MIRALAX, GLYCOLAX) 17 g ORAL DAILY insulin glargine 33 Units pen (long acting) (LANTUS SOLOSTAR, BASAGLAR KWIKPEN) 33 Units SUBCUTANEOUS AT BEDTIME melatonin 3 mg tab(s) 3 mg ORAL DAILY (8 PM) gabapentin 100 mg cap(s) (NEURONTIN) 100 mg ORAL TID PRN atorvastatin 40 mg tab(s) (LIPITOR) 40 mg ORAL AT BEDTIME tamsulosin 0.8 mg cap(s) (FLOMAX) 0.8 mg ORAL AT BEDTIME divalproex ER 500 mg tab(s) (DEPAKOTE ER) 500 mg ORAL DAILY venlafaxine ER 75 mg cap(s) (EFFEXOR XR) 75 mg ORAL DAILY WITH BREAKFAST metFORMIN ER 500 mg tab(s) (GLUCOPHAGE XR) 500 mg ORAL BID w MEALS ergocalciferol (vitamin D2) 50,000 Units cap(s) (DRISDOL) 50,000 Units ORAL 1/WK OBJECTIVE PHYSICAL EXAM: Patient Vitals for the past 24 hrs: BP Temp Temp src Pulse Resp SpO2 01/24/22 0911 122/71 36.9 ?C (98.4 ?F) Oral 94 12 96 % Body mass index is 36.59 kg/m?. GENERAL: Alert HEAD/SINUSES: No significant findings EARS: External ears normal, canals clear NECK: No jugulovenous distention, Supple BACK: Back symmetric, No CVAT. ABDOMEN: Abdomen soft, non-tender, BS normal, No masses or organomegaly EXTREMITIES: No ulcers DATA: Diagnostic tests reviewed for today's visit: Most recent labs SIGNATURE: Corky Rodarte MD PATIENT NAME: José Manuel Ashton DATE: January 24, 2022 TIME: 6:36 PM PAGER: [phone] [id number] NoteHNO ID: [id number] Author: Kylah Orantes MD Service: ? Author Type: Physician Type: Progress Notes Filed: 02/27/2022 8:27 PM Note Text: [facility] - General Progress Note JOSÉ MANUEL ASHTON : 1960 AGE: 61 SEX: M CSN: [id number] [facility]: [facility] LOCATION: [facility] DATE OF SERVICE: 01/24/2022 This is a patient admitted to the hospital Inpatient Psych Unit with depression and had abdominal pain. CT was reviewed. The patient had mild headache, which has resolved. No chest pain, tightness, or pressure. No shortness of breath. He was found to be in acute renal failure. Creatinine is trending down. ASSESSMENT AND PLAN: 1. Depression. Continue the current treatment. Psych following consult. 2. Headache, resolved. No focal deficit. CT brain. 3. Abdominal pain, resolved, status post CT abdomen. 4. TARYN. Follow up CMP. 5. Diabetes type 2. Sliding scale insulin reviewed. We discussed with the Inpatient Psych Unit. 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 Detected on EMG Rectal cancer (HCC) Spinal stenosis of lumbar region with neurogenic claudication Vitamin D deficiency Social History Tobacco Use Smoking status: Former Packs/day: 1.00 Years: 37.00 Pack years: 37.00 Types: Cigarettes Quit date: 04/03/2010 Years since quittin.9 Smokeless tobacco: Never Tobacco comments: Smokes [place] Vaping Use Vaping Use: Never used Substance Use Topics Alcohol use: Not Currently Drug use: Yes Types: Marijuana Comment: daily FAMILY HISTORY Problem Relation Age of Onset other (Heart stroke) Mother other (Glaucoma lung cancer) Father Glaucoma Sister Glaucoma Brother PAST SURGICAL HISTORY Procedure Laterality Date COLONOSCOPY GEN ANES 07/24/2020 Invasive Adenocarcinoma arising in a Tubulovillous Adenoma in the lower rectum, Tubular Adenomas, Fragment of Hyperplastic polyp, Internal Hemorrhoids EGD 07/24/2020 Will's Esophagus, Hyperplastic polyp in Duodenum EXCISION OF RECTAL TUMOR, TRANSANAL 11/24/2020 Dr. Gabby Luther negative other than HPI AND PMH all other SYS reviewed and negative. Most recent labs reviewed [facility] consultants notes reviewed Most recent images Reviewed Last EKG/Rhythm reviewed Med list reviewed per ROMULO Suazo reviewed VS noted per RN Chart SKIN: No rashes . ENT mucosa, Normal/nose normal NECK: no jugulovenous distention NO lymphadenopathy LUNGS:No wheezing,no ronchi no rales. CARDIAC: S1 and S2 ABDOMEN: Abdomen soft, non-tender. EXTREMITIES: Extremities normal. NEURO: non focal PULSES: + pedal / radial No edema No goiter Kylah Orantes M.D. Internal MedicineCleveland Clinic Union [id number] NoteHNO ID: [id number] Author: Sarah Noguera DO Service: Psychiatry Author Type: Resident Type: Progress Notes Filed: 01/24/2022 1:59 PM Note Text: Attestation signed by Luis Carlos Short Jr., MD at 01/24/2022 4:37 PM Patient examined and chart reviewed. Case evaluated and history and exam reviewed with resident physician. Her findings and plan were formulated under my direct supervision and I agree with them herein. Encouraging that patient willing to participate in retirement rehab care upon discharge. Optimize antidepressant and anxiolytic (venlafaxine) and augmenting with mood stabilizer (Depakote). Aim d/c by end week to SNF near [facility] in [place], [place]. Luis Carlos Short Jr, MD January 24, 2022 4:37 PM PROGRESS NOTE BEHAVIORAL HEALTH SERVICE DATE: 01/24/2022 SERVICE TIME: 10:45AM The Interdisciplinary team met and reviewed treatment goals and discharge planning. Subjective Patient seen in common area. Reports he is "hanging in there" and endorses anxiety, with stressors being his chronic pain and being in the hospital. Notes poor sleep overnight, appetite is fine. When asked what has improved since being in hospital, he notes his sugars are better. He says "I don't know" when asked if his mental health is improving, and is unsure what would help him feel better. Notes going to a couple groups and that he didn't think they were helpful. Is unsure if medications are helpful, stating he does not know what they are for. Denies SI. Is asking to be discharged today, noting that he lives with his brother and sister but would like to get his own place eventually. Objective PHYSICAL EXAM: BP 122/71 Pulse 94 Temp 36.9 ?C (98.4 ?F) Resp 18 Ht 177.8 cm (5' 10") Wt 115.7 kg (255 lb 0.3 oz) SpO2 96% BMI 36.59 kg/m? MENTAL STATUS EXAMINATION: Appearance: Appears stated age, in hospital gown, in wheelchair sitting at table in common area Behavior: Calm, cooperative, downward gaze, minimal eye contact. Orientation: Person, Place, Time and Situation Speech/Language: Quiet, soft, low tone, minimal responses to questions. Mood/Affect: "hanging in there, anxious" with restricted, withdrawn, and depressed affect Thought Form: Coherent Thought Content: Coherent, no AVH and does not appear internally stimulated. Help-seeking help-rejecting. Suicidal Ideations: No suicidal ideation, intent or plan. Homicidal Ideations: No homicidal ideation, intent or plan. Insight: Limited Judgment: Limited Memory/Cognition: grossly intact Psychomotor: Psychomotor activity was normal. NEW PROBLEMS ON UNIT SINCE LAST ENCOUNTER: None Current Facility-Administered Medications Medication Dose Route Frequency haloperidol 5 mg tab(s) (HALDOL) 5 mg ORAL q 4 H PRN Or haloperidol lactate 5 mg short-acting injection (HALDOL) 5 mg INTRAMUSCULAR q 4 H PRN benztropine 2 mg injection (COGENTIN) 2 mg INTRAMUSCULAR q 30 MIN PRN diphenhydrAMINE 50 mg injection (BENADRYL) 50 mg INTRAMUSCULAR q 30 MIN PRN dextrose 40 % 15 g 15 g ORAL PRN Or glucagon 1 mg injection 1 mg INTRAMUSCULAR PRN Or dextrose 10% iv bolus 12.5 g INTRAVENOUS PRN aluminum-magnesium hydroxide-simethicone 200-200-20 mg/5 mL 30 mL (MAALOX,MYLANTA,MAG-AL PLUS) 30 mL ORAL DAILY PRN acetaminophen 650 mg tab(s) (TYLENOL) 650 mg ORAL q 6 H PRN insulin lispro injection (rapid acting) (ADMELOG) SUBCUTANEOUS AT BEDTIME lisinopril 20 mg tab(s) (ZESTRIL, PRINIVIL) 20 mg ORAL DAILY insulin lispro injection (rapid acting) (ADMELOG) SUBCUTANEOUS w MEALS pioglitazone (ACTOS) tab(s) 45 mg 45 mg ORAL DAILY docusate sodium 100 mg cap(s) (COLACE) 100 mg ORAL BID polyethylene glycol 3350 17 g packet (MIRALAX, GLYCOLAX) 17 g ORAL DAILY insulin glargine 33 Units pen (long acting) (LANTUS SOLOSTAR, BASAGLAR KWIKPEN) 33 Units SUBCUTANEOUS AT BEDTIME melatonin 3 mg tab(s) 3 mg ORAL DAILY (8 PM) gabapentin 100 mg cap(s) (NEURONTIN) 100 mg ORAL TID PRN atorvastatin 40 mg tab(s) (LIPITOR) 40 mg ORAL AT BEDTIME tamsulosin 0.8 mg cap(s) (FLOMAX) 0.8 mg ORAL AT BEDTIME divalproex ER 500 mg tab(s) (DEPAKOTE ER) 500 mg ORAL DAILY venlafaxine ER 75 mg cap(s) (EFFEXOR XR) 75 mg ORAL DAILY WITH BREAKFAST metFORMIN ER 500 mg tab(s) (GLUCOPHAGE XR) 500 mg ORAL BID w MEALS ergocalciferol (vitamin D2) 50,000 Units cap(s) (DRISDOL) 50,000 Units ORAL 1/WK DATA: Diagnostic tests reviewed for today's visit: Most recent labs Assessment/Plan DIAGNOSIS: (as per primary team) PRIMARY: Mood Disorder Unspecified R/o substance induced mood disorder or mood disorder related to medical condition Cannabis use disorder R/o Alcohol use disorder Medical: insulin dependent T2DM, HTN, HLD, CKDIII, rectal cancer, 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 0600: pt slept approximately 7 hours.[facility] [id number] NoteHNO ID: [id number] Author: Corky Rodarte MD Service: Urology Author Type: Physician Type: Progress Notes Filed: 01/23/2022 2:32 PM Note Text: 2:30 PMINPATIENT PROGRESS NOTE SERVICE DATE: 01/23/2022 SERVICE TIME: 2:30 PM ASSESSMENT AND PLAN Assessment : bph, luts Plan ; current care, increased tamsulosin to 0.8mg, will follow SUBJECTIVE CHIEF COMPLAINT: depression PRIMARY SERVICE: psych INTERVAL HPI: denies dysuria REVIEW OF SYSTEMS GENERAL: unchanged MEDICATIONS: Current Facility-Administered Medications Medication Dose Route Frequency haloperidol 5 mg tab(s) (HALDOL) 5 mg ORAL q 4 H PRN Or haloperidol lactate 5 mg short-acting injection (HALDOL) 5 mg INTRAMUSCULAR q 4 H PRN benztropine 2 mg injection (COGENTIN) 2 mg INTRAMUSCULAR q 30 MIN PRN diphenhydrAMINE 50 mg injection (BENADRYL) 50 mg INTRAMUSCULAR q 30 MIN PRN dextrose 40 % 15 g 15 g ORAL PRN Or glucagon 1 mg injection 1 mg INTRAMUSCULAR PRN Or dextrose 10% iv bolus 12.5 g INTRAVENOUS PRN aluminum-magnesium hydroxide-simethicone 200-200-20 mg/5 mL 30 mL (MAALOX,MYLANTA,MAG-AL PLUS) 30 mL ORAL DAILY PRN acetaminophen 650 mg tab(s) (TYLENOL) 650 mg ORAL q 6 H PRN insulin lispro injection (rapid acting) (ADMELOG) SUBCUTANEOUS AT BEDTIME lisinopril 20 mg tab(s) (ZESTRIL, PRINIVIL) 20 mg ORAL DAILY insulin lispro injection (rapid acting) (ADMELOG) SUBCUTANEOUS w MEALS pioglitazone (ACTOS) tab(s) 45 mg 45 mg ORAL DAILY docusate sodium 100 mg cap(s) (COLACE) 100 mg ORAL BID polyethylene glycol 3350 17 g packet (MIRALAX, GLYCOLAX) 17 g ORAL DAILY insulin glargine 33 Units pen (long acting) (LANTUS SOLOSTAR, BASAGLAR KWIKPEN) 33 Units SUBCUTANEOUS AT BEDTIME melatonin 3 mg tab(s) 3 mg ORAL DAILY (8 PM) gabapentin 100 mg cap(s) (NEURONTIN) 100 mg ORAL TID PRN atorvastatin 40 mg tab(s) (LIPITOR) 40 mg ORAL AT BEDTIME tamsulosin 0.8 mg cap(s) (FLOMAX) 0.8 mg ORAL AT BEDTIME divalproex ER 500 mg tab(s) (DEPAKOTE ER) 500 mg ORAL DAILY [START ON 01/24/2022] venlafaxine ER 75 mg cap(s) (EFFEXOR XR) 75 mg ORAL DAILY WITH BREAKFAST metFORMIN ER 500 mg tab(s) (GLUCOPHAGE XR) 500 mg ORAL BID w MEALS ergocalciferol (vitamin D2) 50,000 Units cap(s) (DRISDOL) 50,000 Units ORAL 1/WK OBJECTIVE PHYSICAL EXAM: Patient Vitals for the past 24 hrs: BP Temp Temp src Pulse Resp SpO2 01/22/22 1700 132/75 36.6 ?C (97.9 ?F) Oral 80 16 95 % Body mass index is 36.59 kg/m?. GENERAL: No Distress HEAD/SINUSES: No significant findings NOSE: Nares normal. Septum midline. BACK: Back symmetric, Normal curvature, No CVAT., Negative findings: no evidence of scoliosis ABDOMEN: Abdomen soft, non-tender, BS normal, No masses or organomegaly EXTREMITIES: No ulcers DATA: Diagnostic tests reviewed for today's visit: Most recent labs SIGNATURE: Corky Rodarte MD PATIENT NAME: José Manuel Ashton DATE: January 23, 2022 TIME: 2:30 PM PAGER: [address] [place], [place] [id number] NoteHNO ID: [id number] Author: Kylah Orantes MD Service: ? Author Type: Physician Type: Progress Notes Filed: 02/25/2022 12:30 AM Note Text: [facility] - General Progress Note JOSÉ MANUEL ASHTON : 1960 AGE: 61 SEX: M CSN: [id number] [facility]: [facility] LOCATION: 6002 DATE OF SERVICE: 01/23/2022 This is a patient who was admitted to the Inpatient Psych Unit for depression. The patient was intoxicated on admission. His headache has resolved. CT brain is negative. Denies any chest pain, tightness, or pressure. No shortness of breath. He is diabetic. He had mild TARYN. ASSESSMENT AND PLAN: 1. Depression. Admitted to the Inpatient Psych Unit. Psych consult. 2. Alcohol abuse. Advised to quit. Monitor for signs of withdrawal. 3. Acute renal failure. Creatinine trending down. Follow up CMP. 4. Diabetes type 2. Sliding scale insulin. Case has been discussed with the Inpatient Psych Unit. 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 Detected on EMG Rectal cancer (HCC) Spinal stenosis of lumbar region with neurogenic claudication Vitamin D deficiency Social History Tobacco Use Smoking status: Former Packs/day: 1.00 Years: 37.00 Pack years: 37.00 Types: Cigarettes Quit date: 04/03/2010 Years since quittin.9 Smokeless tobacco: Never Tobacco comments: Smokes [place] Vaping Use Vaping Use: Never used Substance Use Topics Alcohol use: Not Currently Drug use: Yes Types: Marijuana Comment: daily FAMILY HISTORY Problem Relation Age of Onset other (Heart stroke) Mother other (Glaucoma lung cancer) Father Glaucoma Sister Glaucoma Brother PAST SURGICAL HISTORY Procedure Laterality Date COLONOSCOPY GEN ANES 07/24/2020 Invasive Adenocarcinoma arising in a Tubulovillous Adenoma in the lower rectum, Tubular Adenomas, Fragment of Hyperplastic polyp, Internal Hemorrhoids EGD 07/24/2020 Will's Esophagus, Hyperplastic polyp in Duodenum EXCISION OF RECTAL TUMOR, TRANSANAL 11/24/2020 Dr. Ahmadi R.O.S negative other than HPI AND PMH all other SYS reviewed and negative. Most recent labs reviewed [facility] consultants notes reviewed Most recent images Reviewed Last EKG/Rhythm reviewed Med list reviewed per ROMULO Suazo reviewed VS noted per RN Chart SKIN: No rashes . ENT mucosa, Normal/nose normal NECK: no jugulovenous distention NO lymphadenopathy LUNGS:No wheezing,no ronchi no rales. CARDIAC: S1 and S2 ABDOMEN: Abdomen soft, non-tender. EXTREMITIES: Extremities normal. NEURO: non focal PULSES: + pedal / radial No edema No goiter Kylah Orantes M.D. Internal MedicineCleveland Clinic Union [id number] NoteHNO ID: [id number] Author: Kylah Orantes MD Service: ? Author Type: Physician Type: Progress Notes Filed: 02/20/2022 8:03 PM Note Text: [facility] - General Progress Note JOSÉ MANUEL ASHTON : 1960 AGE: 61 SEX: M CSN: [id number] [facility]: [facility] LOCATION: [address] DATE OF SERVICE: 01/22/2022 This is a 61-year-old male who was admitted to the Inpatient Psych Unit with history of diabetes, hypertension, dyslipidemia. The patient also on admission was intoxicated. He denies chest pain, tightness, or pressure. No shortness of breath. He reports mild frontal headache. No focal weakness. ASSESSMENT AND PLAN: 1. Depression. Admitted to the Inpatient Psych Unit. Psych consult. 2. History of alcohol abuse. Advised to quit. Monitor for signs of withdrawal. 3. Diabetes type 2. Sliding scale insulin. HbA1c. 4. Acute renal failure status post hydration. Follow up CMP. 5. Drug abuse. Urine toxic and screen positive. Advised to quit. 6. Headache. CT brain. No focal deficit. P.r.n. ibuprofen if needed. Discussed with Inpatient Psych Unit. We will follow up. 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 Detected on EMG Rectal cancer (HCC) Spinal stenosis of lumbar region with neurogenic claudication Vitamin D deficiency Social History Tobacco Use Smoking status: Former Packs/day: 1.00 Years: 37.00 Pack years: 37.00 Types: Cigarettes Quit date: 04/03/2010 Years since quittin.8 Smokeless tobacco: Never Tobacco comments: Smokes [place] Vaping Use Vaping Use: Never used Substance Use Topics Alcohol use: Not Currently Drug use: Yes Types: Marijuana Comment: daily FAMILY HISTORY Problem Relation Age of Onset other (Heart stroke) Mother other (Glaucoma lung cancer) Father Glaucoma Sister Glaucoma Brother PAST SURGICAL HISTORY Procedure Laterality Date COLONOSCOPY GEN ANES 07/24/2020 Invasive Adenocarcinoma arising in a Tubulovillous Adenoma in the lower rectum, Tubular Adenomas, Fragment of Hyperplastic polyp, Internal Hemorrhoids EGD 07/24/2020 Will's Esophagus, Hyperplastic polyp in Duodenum EXCISION OF RECTAL TUMOR, TRANSANAL 11/24/2020 Dr. Ahmadi R.O.S negative other than HPI AND PMH all other SYS reviewed and negative. [facility] Most recent images Reviewed Last EKG/Rhythm reviewed Med list reviewed per ROMULO Suazo reviewed VS noted per RN Chart SKIN: No rashes . ENT mucosa, Normal/nose normal NECK: no jugulovenous distention NO lymphadenopathy LUNGS:No wheezing,no ronchi no rales. CARDIAC: S1 and S2 ABDOMEN: Abdomen soft, non-tender. EXTREMITIES: Extremities normal. NEURO: non focal PULSES: + pedal / radial No edema No goiter Kylah Orantes M.D. Internal MedicineCleveland Clinic Union [id number] NoteHNO ID: [id number] Author: Miriam Jennings APRN.[employer] INTERN Service: Psychiatry Author Type: Nurse Practitioner Type: Progress Notes Filed: 01/22/2022 12:09 PM Note Text: PROGRESS NOTE BEHAVIORAL HEALTH SERVICE DATE: 01/22/2022 SERVICE TIME: 0900 The Interdisciplinary team met and reviewed treatment goals and discharge planning. Subjective No additional PRN medication received. Cooperative with morning labwork which was reviewed (unremarkable). Seen by podiatry. Urology and endocrinology consults remain pending and patient has not yet been evaluated. No acute issues voiced by nursing. Alert and fully oriented. Pleasant, calm, cooperative with staff. Continent and independent with ADLs. Utilizing the wheelchair and cane for ambulation. Adherent with blood glucose monitoring and medications. Slept 6 hours overnight. Pleasant on assessment. Fully oriented. Endorsing chronic lower back and groin pain. Declining lidocaine patch or acetaminophen. Largely denying all psychiatric symptoms including SI, HI, AH, or VH. He does acknowledge "anger issues." Tolerating oral medications and agreeable to titration of mood stabilizer and antidepressant. Somewhat discharge focused and states he will "feel better" once he is able to leave the hospital. Objective PHYSICAL EXAM: BP 135/78 Pulse 89 Temp 36.7 ?C (98.1 ?F) (Oral) Resp 18 Ht 177.8 cm (5' 10") Wt 115.7 kg (255 lb 0.3 oz) SpO2 97% BMI 36.59 kg/m? MENTAL STATUS EXAMINATION: Appearance: Disheveled Behavior: calm, cooperative Orientation: Person, Place, Time and Situation Speech/Language: The patient demonstrates appropriate tone, prosody, melody, phonetics, and syntax Mood/Affect: "okay" / restricted Thought Form: Coherent Thought Content: Coherent Suicidal Ideations: No suicidal ideation, intent or plan. Homicidal Ideations: No homicidal ideation, intent or plan. Insight: Limited Judgment: Limited Memory/Cognition: grossly intact Psychomotor: Psychomotor activity was normal NEW PROBLEMS ON UNIT SINCE LAST ENCOUNTER: None Current Facility-Administered Medications Medication Dose Route Frequency haloperidol 5 mg tab(s) (HALDOL) 5 mg ORAL q 4 H PRN Or haloperidol lactate 5 mg short-acting injection (HALDOL) 5 mg INTRAMUSCULAR q 4 H PRN benztropine 2 mg injection (COGENTIN) 2 mg INTRAMUSCULAR q 30 MIN PRN diphenhydrAMINE 50 mg injection (BENADRYL) 50 mg INTRAMUSCULAR q 30 MIN PRN dextrose 40 % 15 g 15 g ORAL PRN Or glucagon 1 mg injection 1 mg INTRAMUSCULAR PRN Or dextrose 10% iv bolus 12.5 g INTRAVENOUS PRN aluminum-magnesium hydroxide-simethicone 200-200-20 mg/5 mL 30 mL (MAALOX,MYLANTA,MAG-AL PLUS) 30 mL ORAL DAILY PRN acetaminophen 650 mg tab(s) (TYLENOL) 650 mg ORAL q 6 H PRN insulin lispro injection (rapid acting) (ADMELOG) SUBCUTANEOUS AT BEDTIME lisinopril 20 mg tab(s) (ZESTRIL, PRINIVIL) 20 mg ORAL DAILY tamsulosin 0.4 mg cap(s) (FLOMAX) 0.4 mg ORAL AT BEDTIME insulin lispro injection (rapid acting) (ADMELOG) SUBCUTANEOUS w MEALS pioglitazone (ACTOS) tab(s) 45 mg 45 mg ORAL DAILY docusate sodium 100 mg cap(s) (COLACE) 100 mg ORAL BID polyethylene glycol 3350 17 g packet (MIRALAX, GLYCOLAX) 17 g ORAL DAILY insulin glargine 33 Units pen (long acting) (LANTUS SOLOSTAR, BASAGLAR KWIKPEN) 33 Units SUBCUTANEOUS AT BEDTIME melatonin 3 mg tab(s) 3 mg ORAL DAILY (8 PM) gabapentin 100 mg cap(s) (NEURONTIN) 100 mg ORAL TID PRN atorvastatin 40 mg tab(s) (LIPITOR) 40 mg ORAL AT BEDTIME cholecalciferol 1,000 Units tab(s) (VITAMIN D3) 1,000 Units ORAL DAILY venlafaxine ER 37.5 mg cap(s) (EFFEXOR XR) 37.5 mg ORAL DAILY WITH BREAKFAST divalproex ER 250 mg tab(s) (DEPAKOTE ER) 250 mg ORAL DAILY DATA: Diagnostic tests reviewed for today's visit: Most recent labs Component Latest Ref Rng AND Units 01/22/2022 Protein, Total 6.3 - 8.0 g/dL 5.7 (L) Albumin 3.9 - 4.9 g/dL 3.2 (L) Calcium 8.5 - 10.2 mg/dL 9.2 Bilirubin, Total 0.2 - 1.3 mg/dL 0.2 Alkaline Phosphatase 38 - 113 U/L 103 AST 14 - 40 U/L 10 (L) ALT 10 - 54 U/L 9 (L) Glucose 74 - 99 mg/dL 141 (H) BUN 9 - 24 mg/dL 22 Creatinine 0.73 - 1.22 mg/dL 1.26 (H) Sodium 136 - 144 mmol/L 140 Potassium 3.7 - 5.1 mmol/L 4.2 Chloride 97 - 105 mmol/L 104 CO2 22 - 30 mmol/L 26 Anion Gap 9 - 18 mmol/L 10 eGFR >=60 mL/min/1.73mA? 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 RISK ASSESSMENT: Suicide: low Homicide: low Deliberate Self-Harm: moderate Aggression: moderate Imminent Physical Self (more content not included)...[facility] [id number] NoteHNO ID: [id number] Author: Mimi Benton RN Service: ? Author Type: Registered Nurse Type: Progress Notes Filed: 01/21/2022 5:31 AM Note Text: Assumed care of patient at 1999. He is alert and oriented, passively cooperative. Denies SI/HI. Cooperative with medications, and appeared to sleep through the night without distress.[facility] [id number] NoteHNO ID: [id number] Author: Chele Mcginnis RN Service: Nursing Author Type: Registered Nurse Type: Plan of Care Filed: 01/20/2022 5:49 PM Note Text: BEHAVIORAL HEALTH INITIAL INPATIENT INTERDISCIPLINARY TREATMENT PLAN DATE INITIATED: 01/20/2022 5:48 PM Patient's Goal of Treatment: to return back home Active Hospital Problems *MDD (major depressive disorder), severe (HCC) Criteria for Discharge: Elimination/reduction of presenting behavior: MDD Estimated length of stay: 5/7 days Interdisciplinary Treatment Plan Date Initiated: 01/27/22 Time Initiated: 1643 Patient Participation in Initial Treatment Plan: Yes Individualized problems: Risk of harm to self;Mood disorder Problem - Mood Disorder Mood Disorder: Depression Short Term Goals: Patient will report decrease in identified symptoms;Patient will report decrease in suicidal ideation/self-harm behavior Target Date Short Term Goals: 01/27/22 Residential Goals: Patient will demonstrate optimal level of functioning;Patient/support system will verbalize intent to comply with medication and treatment after discharge Target Date Residential Goals: 01/27/22 Interventions - Nursing: Obtain baseline level of functioning on admission;Administer medications as indicated and monitor patient for effect daily;Provide education to the patient and/or family about the disease process and management as appropriate daily and as needed;Provide non-judgmental supportive, empathetic and comprehensive trauma informed care daily and as needed;Use therapeutic communication skills to develop patient trust and a nurse-patient relationship daily and as needed;Encourage independence with daily functioning daily and as needed Problem - Risk of Harm to Self As evidenced by: Voiced intentions of self-injurious behavior Date Initiated: 01/20/22 Time Initiated: 1643 Short Term Goals: Refrain from self injurious behavior Residential Goals: Identify positive alternatives to self-injurious behavior Interventions - Nursing: Initiate safety measures to protect the patient from injury daily and as needed;Assist patient with developing a safety plan daily and as needed;Provide non-judgmental supportive, empathetic and comprehensive trauma informed care daily and as needed;Use therapeutic communication skills to develop patient trust and a nurse-patient relationship daily and as needed Staff in attendance and in agreement with this plan: Nurse: Chele This plan was reviewed with patient/family. Attending Psychiatrist: Dr. Olivas DOCUMENTED BY: Chele Mcginnis RN PATIENT NAME: José Manuel Ashton DATE: January 20, 2022 TIME: 5:48 [facility]10-20-2022 NoteHNO ID: [id number] Author: Teresa Diego APRN.PRODUCTION INTERN Service: Hospital Medicine Author Type: Nurse Practitioner Type: Progress Notes Filed: 01/20/2022 5:20 PM Note Text: Reviewed patient's chart. Discussed POC with attending and IDT. Chief complaint: depression and anxiety Interval History: Patient seen this morning. No new issues overnight. He still has dysuria, no changes from yesterday. No hematuria, UO is yellow. Denies fevers, chills, CP, dyspnea. He is amenable to BH transfer today when bed is available. OBJECTIVE PHYSICAL EXAM: Patient Vitals for the past 24 hrs: BP Temp Temp src Pulse Resp SpO2 01/20/22 1647 159/88 -- -- 90 -- 96 % 01/20/22 1126 131/74 36.5 ?C (97.7 ?F) Oral 85 18 94 % 01/20/22 0736 147/70 -- -- 84 -- -- 01/20/22 0734 130/54 36.6 ?C (97.9 ?F) Oral 85 16 95 % 01/20/22 0317 164/88 36.5 ?C (97.7 ?F) Oral 86 18 94 % 01/19/22 2332 175/79 36.3 ?C (97.3 ?F) Oral 88 18 94 % 01/19/222016 153/67 36.8 ?C (98.2 ?F) Oral 84 19 94 % Body mass index is 36.46 kg/m?. GENERAL: No acute distress, cooperative NEURO: Alert and oriented x3. Spontaneous MOEx4. HEAD/SINUSES: No significant findings. LUNGS: Lungs clear to auscultation. RA. No respiratory distress or accessory muscle use. CARDIAC:Regular rate and rhythm, no murmurs, clicks, gallops to ausculation. ABDOMEN: Abdomen soft, non-tender. BS normal. EXTREMITIES: Extremities normal, No obvious deformities or edema VASCULAR: +2 radial and DP pulses, equal bilaterally. GI/: Tolerating diet. Voids independently. VTE Prophylaxis: VTE prophylaxis appropriate Assessment AND Plan: Principal Problem: Anxiety and depression POA: Yes Moderate episode of recurrent major depressive disorder (HCC) POA: Yes Assessment AND Plan: - Referred by OP refrigeration insulator Dr Kennedy for concern of worsening depression and reportedly not taking wellbutrin. - Patient denies SI. - Appreciate input. Recommending voluntary psychiatry admission, patient in agreement. He is accepted to [facility] per Dr Olivas. - Wellbutrin held, continue effexor. Hyperglycemia POA: Yes Type 2 diabetes mellitus, with long-term current use of insulin (HCC) POA: Yes Assessment AND Plan: Recent Labs 01/20/22 1134 01/20/22 0733 01/19/22 2207 01/19/22 1652 01/19/22 1220 01/19/22 0745 10201201/18/22 1611 PCGLUCOSE 196* 163* 184* 359* 294* 289* 125* 252* - BHB + in ED, no acidosis or gap. - Hgb a1c 13.4. - Reported non adherence to home medications. - Increased lantus to 33 units 01/19 + SSI + actos. Continue to adjust as necessary. - DM diet. Active Problems: Marijuana use POA: Yes Alcohol use Assessment AND Plan: - UDS + THC. - ETOH + serum 29. - GGT pending. AP 127, otherwise LFTs WDL. - No signs of ETOH withdrawal. - Cessation advised. Fall - Fall overnight 01/19 out of chair, no injury. Ambulates with cane/ walker. - CT HN negative. - Patient with history of BPPV per his report since having shoulder surgery. - PT recs SNF. Obesity, Class II, BMI 35-39.9 POA: Yes Assessment AND Plan: - F/up OP with PCP regarding weight mgmt plan. Mixed hyperlipidemia POA: Yes Assessment AND Plan: - Continue statin. Hypertension, essential POA: Yes Assessment AND Plan: Patient Vitals for the past 24 hrs: BP 01/20/22 1647 159/88 01/20/22 1126 131/74 01/20/22 0736 147/70 01/20/22 0734 130/54 01/20/22 0317 164/88 01/19/22 2332 175/79 01/19/22 2017 153/67 - Continue lisinopril H/O medication noncompliance POA: Yes Assessment AND Plan: - Appreciate input. Benign prostatic hyperplasia POA: Yes Dysuria Assessment AND Plan: - Patient has seen urology in past, admits to non compliance with flomax. Having dysuria and urinary hesitancy/ frequency. - No leukocytosis or fevers. UA +ketones, glucose, blood. - CT AP Diffuse mural thickening of the bladder likely related to chronic bladder outlet obstruction. - PSA WDL. - Restart flomax - F/up OP urology. Stage 3a chronic kidney disease (HCC) POA: Yes Assessment AND Plan: - Inventory Control Manager 1.1, 1.3 at baseline. - Limits nephrotoxins and trend daily labs. Abdominal pain - Resolved, tolerating diet. - CT AP non acute - ADAT, continue bowel regimen. Dispo: Patient medically stable to transfer to unit, [address] Orantes will continue to follow along. Discussed with intake and Dr Olivas, patient accepted to . Teresa Diego, MSN, PRODUCTION INTERN [facility] 01/2022 10:30am For inpatients: I spent 25 minutes in the visit, with more than 50% of the total [id number] time of the visit in counseling / coordination of care. [facility] [id number] NoteHNO ID: [id number] Author: Kylah Orantes MD Service: ? Author Type: Physician Type: Progress Notes Filed: 01/24/2022 9:34 PM Note Text: [facility] - General Progress Note JOSÉ MANUEL ASHTON : 1960 AGE: 61 SEX: M CSN: [id number] [facility]: [facility] LOCATION: [facility] ATTENDING PHYSICIAN: LUI SCARLOS SHORT JR DATE OF SERVICE: 01/20/2022 TIME OF SERVICE: 06:00 PM SUBJECTIVE: This is a patient who was admitted to the inpatient psych unit with severe depression. The patient was admitted initially to the regular medical floor and subsequently transferred to the inpatient psych hospital. The patient had lower abdominal pain, suprapubic. Feels pressure. Sometimes, he has hesitancy. He was found to have an acute renal failure, slightly alcohol intoxicated on admission. 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 ASSESSMENT AND PLAN: 1. Depression. Admitted to the inpatient psych unit. Psych consult. Supportive care. 2. Lower abdominal discomfort, pressure feeling. CT abdomen and pelvis showed possibility of bladder outlet obstruction, which seemed to be chronic. Monitor and consult Urology. Urine analysis. Follow up culture and sensitivity. 3. Drug and alcohol abuse, intoxicated on admission. Monitor for signs of withdrawal, p.r.n. Ativan. 4. Generalized weakness. CT brain. PT, OT down the road. 5. Acute renal failure, was given hydration. Follow up CMP. 6. Diabetes type 2. Sliding scale insulin. HbA1c. Case has been discussed with inpatient psych unit. We will follow up. Kylah Orantes M.D. Internal Medicine BARTHOLOMEW:[id number] NoteHNO ID: [id number] Author: Rafal Carroll PA-C Service: Psychiatry Author Type: Physician Generator Assembler Type: Plan of Care Filed: 01/20/2022 10:42 AM Note Text: PLAN OF CARE Patient referred to [facility] on 01/19 for voluntary admission given concerns for his depression to be affecting his quality of life and his ability to care for himself. Per primary team, patient is medically ready as of 01/19/2022. Per [facility], 01/20/22 @0815, Pt presented [to Dr. Hoffman], depression appears to be secondary to medical needs, wants to review chart and will make recommendations after that. Will call back after that should be after 2pm. Received a call from VOLUNTEER SERVICES SPECIALIST Teresa Diego with concerns for delayed transfer, limited beds available on medical floor, urgency for making beds available, and patient's treatment plan. Attempted to discuss case with Dr. Hoffman, left message with his paging service today @9:23AM, waiting for call back. Attempted to reach out to Dr. Olivas today at 9:04AM to discuss bed availability and transfer process. Dr. Olivas is currently seeing patients, waiting call back. Rafal Carroll PA-C January 20, 2022 10:26 AM Addendum: Received call from Dr. Olivas @10:35AM, patient will be transferred to [address] [place], [place] [address]10-20-2022 NoteHNO ID: [id number] Author: Kyalh Orantes MD Service: ? Author Type: Physician Type: Progress Notes Filed: 01/19/2022 10:43 PM Note Text: [facility] - General Progress Note JOSÉ MANUEL ASHTON : 1960 AGE: 61 SEX: M CSN: [id number] [facility]: [facility]: [facility] ATTENDING PHYSICIAN: Kylah Orantes M.D. DATE OF SERVICE: 01/19/2022 A 61-year-old, who was admitted to the hospital after seen today by his physician for a psych evaluation. 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 The patient has no chest pain no abdominal pain he report hesitancy he has history of BPH he does not take his medication he see a urologist as an outpatient ASSESSMENT AND PLAN: 1. Hyperglycemia. Sliding scale insulin. Improving acceptable 2. Drug alcohol abuse. Urine toxic and screen. Psych consultation. Appreciate input from inpatient psych 3. Hypertension. Stable 4. lower quadrant abdominal pain with tenderness. CT of abdomen with oral contrast. Reviewed showed chronic obstruction bladder currently he is able to urinate restart Flomax need outpatient follow-up with a urologist discussed with the patient urine culture and sensitivity Case has been discussed with consultants. We will follow up. 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 Detected on EMG Rectal cancer (HCC) Spinal stenosis of lumbar region with neurogenic claudication Vitamin D deficiency Social History Tobacco Use Smoking status: Former Packs/day: 1.00 Years: 37.00 Pack years: 37.00 Types: Cigarettes Quit date: 04/03/2010 Years since quittin.8 Smokeless tobacco: Never Tobacco comments: Smokes [place] Vaping Use Vaping Use: Never used Substance Use Topics Alcohol use: Not Currently Drug use: Yes Types: Marijuana Comment: daily FAMILY HISTORY Problem Relation Age of Onset other (Heart stroke) Mother other (Glaucoma lung cancer) Father Glaucoma Sister Glaucoma Brother PAST SURGICAL HISTORY Procedure Laterality Date COLONOSCOPY GEN ANES 07/24/2020 Invasive Adenocarcinoma arising in a Tubulovillous Adenoma in the lower rectum, Tubular Adenomas, Fragment of Hyperplastic polyp, Internal Hemorrhoids EGD 07/24/2020 Will's Esophagus, Hyperplastic polyp in Duodenum EXCISION OF RECTAL TUMOR, TRANSANAL 11/24/2020 Dr. Ahmadi Lab Results Component Value Date HBA1C 13.4 01/03/2022 HBA1C 11.3 11/05/2021 HBA1C 11.5 10/05/2021 R.O.S negative other than HPI AND PMH all other SYS reviewed and negative. Current Facility-Administered Medications Medication Dose Route Frequency Provider Last Rate Last Admin insulin glargine 33 Units pen (long acting) (LANTUS SOLOSTAR, BASAGLAR KWIKPEN) 33 Units SUBCUTANEOUS AT BEDTIME Teresa Diego APRN.PRODUCTION INTERN 33 Units at 01/19/222207 atropine 0.5 mg injection 0.5 mg INTRAVENOUS PRN Radha Mack APRN.PRODUCTION INTERN NaCl 0.9% iv flush bag 20 mL INTRAVENOUS PRN Radha Mack APRN.PRODUCTION INTERN sodium chloride 0.9 % (flush) 3-5 mL (BD POSIFLUSH) 3-5 mL INTRAVENOUS q 12 H Radha Mack APRN.PRODUCTION INTERN 5 mL at 01/19/227 aluminum-magnesium hydroxide-simethicone 200-200-20 mg/5 mL 30 mL (MAALOX,MYLANTA,MAG-AL PLUS) 30 mL ORAL DAILY PRN Radha Mack APRN.PRODUCTION INTERN acetaminophen 650 mg tab(s) (TYLENOL) 650 mg ORAL q 6 H PRN Radha Mack APRN.PRODUCTION INTERN 650 mg at 01/18/22 0818 insulin lispro injection (rapid acting) (ADMELOG) SUBCUTANEOUS AT BEDTIME Radha Mack APRN.PRODUCTION INTERN 1 Units at 01/19/222206 hydrALAZINE 10 mg injection (APRESOLINE) 10 mg INTRAVENOUS q 6 H PRN Radha Mack APRN.PRODUCTION INTERN lisinopril 20 mg tab(s) (ZESTRIL, PRINIVIL) 20 mg ORAL DAILY Radha Mack APRN.PRODUCTION INTERN 20 mg at 01/19/22 0848 tamsulosin 0.4 mg cap(s) (FLOMAX) 0.4 mg ORAL AT BEDTIME Radha Mack APRN.PRODUCTION INTERN 0.4 mg at 01/19/222206 insulin lispro injection (rapid acting) (ADMELOG) SUBCUTANEOUS w MEALS Miranda Nash APRN.PRODUCTION INTERN 15 Units at 01/19/22 1715 pioglitazone 45 mg tab(s) (ACTOS) 45 mg ORAL DAILY Miranda Nash APRN.PRODUCTION INTERN 45 mg at 01/19/22 0848 docusate sodium 100 mg cap(s) (COLACE) 100 mg ORAL BID Miranda Nash APRN.PRODUCTION INTERN 100 mg at 01/19/22 2207 polyethylene glycol 3350 17 g packet (MIRALAX, GLYCOLAX) 17 g ORAL DAILY Miranda Nash APRN.PRODUCTION INTERN 17 g at 01/18/22 1222 venlafaxine ER 37.5 mg cap(s) (EFFEXOR XR) 37.5 mg ORAL DAILY WITH BREAKFAST Rafal Carroll PA-C 37.5 mg at 01/19/22 0849 dextrose 40 % 15 g 15 g OR (more content not included)...[facility] 01-19-2022 NoteHNO ID: [id number] Author: Teresa Diego APRN.LEX Service: Hospital Medicine Author Type: Nurse Practitioner Type: Progress Notes Filed: 01/19/2022 3:43 PM Note Text: Reviewed patient's chart. Discussed POC with attending and IDT. Chief complaint: depression and anxiety Interval History: Saw patient this afternoon during POCV. He endorses urinary frequency and dysuria. States he has seen a urologist in the past and is supposed to take flomax but he does not take it. Denies fevers/ chills. Tolerating diet without issue. Of note, he fell last night out of a chair. Patient states he's had chronic dizziness with standing since having shoulder surgery a few years ago. Rounded again this afternoon to discuss voluntary psych admission and he is agreeable. Rounded in tandem with PA. He denies SI. Physical Exam: BP 147/67 Pulse 89 Temp 36.8 ?C (98.2 ?F) (Oral) Resp 18 Ht 177.8 cm (5' 10") Wt 115.2 kg (254 lb 1.2 oz) SpO2 96% BMI 36.46 kg/m? VTE Prophylaxis: VTE prophylaxis appropriate Assessment AND Plan: Principal Problem: Anxiety and depression POA: Yes Moderate episode of recurrent major depressive disorder (HCC) POA: Yes Assessment AND Plan: - Referred by OP refrigeration insulator Dr Kennedy for concern of worsening depression and reportedly not taking wellbutrin. - Patient denies SI. - Appreciate input. Recommending voluntary psychiatry admission, patient in agreement. - Wellbutrin held, continue effexor. Hyperglycemia POA: Yes Type 2 diabetes mellitus, with long-term current use of insulin (HCC) POA: Yes Assessment AND Plan: Recent Labs 01/19/22 1220 01/19/22 0745 01/18/22 2013 01/18/22 1611 01/18/22 1136 01/18/22 0821 01/17/22 2340 01/17/22 2313 PCGLUCOSE 294* 289* 125* 252* 335* 331* 246* 254* - BHB + in ED, no acidosis or gap. - Hgb a1c 13.4. - Reported non adherence to home medications. - Increased lantus to 33 units + SSI + actos. Continue to adjust as necessary. - DM diet. Active Problems: Marijuana use POA: Yes Alcohol use Assessment AND Plan: - UDS + THC. - ETOH + serum 29. - GGT pending. AP 127, otherwise LFTs WDL. - No signs of ETOH withdrawal. - Cessation advised. Fall - Fall overnight out of chair, no injury. - CT HN negative. - Patient with history of BPPV per his report since having shoulder surgery. - PT recs SNF. Obesity, Class II, BMI 35-39.9 POA: Yes Assessment AND Plan: - F/up OP with PCP regarding weight mgmt plan. Mixed hyperlipidemia POA: Yes Assessment AND Plan: - Continue statin. Hypertension, essential POA: Yes Assessment AND Plan: -Patient Vitals for the past 24 hrs: BP 01/19/22 1219 147/67 01/19/22 0744 168/84 01/19/22 0328 175/99 01/19/22 0315 185/104 01/18/22 1935 149/80 01/18/22 1612 159/91 - Continue lisinopril H/O medication noncompliance POA: Yes Assessment AND Plan: - Appreciate input. Benign prostatic hyperplasia POA: Yes Dysuria Assessment AND Plan: - Patient has seen urology in past, admits to non compliance with flomax. Having dysuria and urinary hesitancy/ frequency. - No leukocytosis or fevers. Check UA/ cx. - CT AP Diffuse mural thickening of the bladder likely related to chronic bladder outlet obstruction. - Restart flomax and check BPH. - F/up OP urology. Stage 3a chronic kidney disease (HCC) POA: Yes Assessment AND Plan: - Inventory Control Manager 1.3 which is his baseline. - Limits nephrotoxins and trend daily labs. Abdominal pain - Resolved, tolerating diet. - CT AP non acute - ADAT, continue bowel regimen. Dispo: Patient medically stable to transfer to unit. Dr Orantes will continue to follow along and f/up UA/ culture. Discussed with Dr Orantes via phone and transfer orders placed. Teresa Diego, MSN, PRODUCTION INTERN [facility] 01/19/22 3:30 PM For inpatients: I spent 35 minutes in the visit, with more than 50% of the total [id number]-kzwi time of the visit in counseling / coordination of care. [facility] [id number] Miscellaneous Notes* Behavorial Health Intake - Yael Huerta, [facility] - 01/19/2022 5:16 PM EDT BEHAVIORAL HEALTH INTAKE NOTE SERVICE DATE: 01/19/2022 SERVICE TIME: 1700 Nature of the crisis: depression leading to medication noncompliance Presenting Problem: José Manuel Ashton is a 61 year old male referred by [facility] for depression. Per Psych consult 01/19/2022 by Rafal Fuentes PA-C "Mood is "not good." Feels "angry" most of the days. Feels "kind of" anxious today. Vague about his depression. "I probably need help. I don't want to go backwards. I'm going backwards. I don't know. I don't know what is going on." Endorses low motivation, low energy. Endorses sleep difficulties. Admits difficulties managing his medicine. Says his concentration is "probably not very good." Endorses feeling overwhelmed: "I don't know what is going on.... too many things with my health. I don'tknow if I will get better." When asked if he has wishes, states "I don't know." He denies thoughts to hurt himself or endhis life. Denies hallucinations. " Pt was admitted medically on 01/17 for elevated glucose levels. Pt had stopped taking his medications. Given concerns for his depression to be affecting his quality of life and his ability to care for himself, voluntary admission to inpatient psychiatry recommended for further evaluation and care. Patient is agreeable. Per ED quill worker Roxanne MOORE on 01/17 "This food writer assessed patient via face to face who presents alert and oriented x 4, appears overweight and disheveled, speech is within normal limits appropriate to tone, prosody, melody, phonetic, and syntax, thought process is linear and organized, d ifficulty concentrating at times, and a poor historian,, mood is depressed with flat affect, with impaired judgement and insight into illness. Patient reports that his Machine Operator Farmworker sent him to the emergency room for a psychiatric evaluation due to not taking his medications. Patient states that he doesn't know why he doesn't take them I just don't do it, I don't know why . Patient denies that he does this in an attempt to sooner although he states I've just given up, nothing seems to be getting better, I have too many things going on . This food writer inquires if patient believes he will get better without taking his medications consistently, in which, patient states I don't know . Patient d enies any suicidal ideation or previous suicide attempts. Patient endorses depressive symptoms of feeling hopeless, worthless, dysphoria, anhedonia, isolation, lack of motivation, poor sleep patterns, lack of appetite I starve myself because my sugar is so dolores high , and lack of energy. Patient denies any homicidal ideation, auditory or visual hallucinations, or self-injurious behaviors. Patient endorses BRANDAN symptoms of nightmares, restlessness, anxiety, and constant worry. Patient denies any hx of abuse and states he had 16 siblings, he was number 17. Patient reports that he is supposed to see a psychiatrist and a therapist and take psychotropic medications, but he is non-compliant. Patient states he did not feel they helped although he admitted that he was not taking the medications consistently and missed dosages. Patient reports to smoking THC daily and denies any alcohol use in 40 years although his BAL was 29. Patient does use a wheelchair and states that he has beenforced to a [facility] in the past for not caring for himself. This food writer discussed with patientpotential for a [facility] nurse to come into home to assist with his medication management to ensure he is caring for self properly and taking medications. Patient has been calm and cooperative in the ED with no restraints or medications administered. 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 Detected on EMG Rectal cancer (HCC) Spinal stenosis of lumbar region with neurogenic claudication Vitamin D deficiency SOCIAL HISTORY: Social History Tobacco Use Smoking status: Former Packs/day: 1.00 Years: 37.00 Pack years: 37.00 Types: Cigarettes Quit date: 04/03/2010 Years since quittin.8 Smokeless tobacco: Never Tobacco comments: Smokes [place] Vaping Use Vaping Use: Never used Substance Use Topics Alcohol use: Not Currently Drug use: Yes Types: Marijuana Comment: daily MEDICATIONS: tamsulosin (FLOMAX) 0.4 mg^Take 1 capsule by mouth once daily.^Disp: 90 capsule^Rfl: 5 dulaglutide (TRULICITY) 1.5 mg/0.5 mL pen injector^Inject 1.5 mg subcutaneously one time a week.^Disp: 4 Each^Rfl: 1 pioglitazone (ACTOS) 45 mg tablet^Take 1 tablet by mouth once daily.^Disp: 90 tablet^Rfl: 3 metFORMIN ER (GLUCOPHAGE XR) 500 mg 24 hr tablet^Two tablets before breakfast and before supper^Disp: 120 tablet^Rfl: 1 Insulin [place], Disposable, (COMFORT EZ PEN NEEDLES) 29 gauge x 1/2"^1 Each once daily.^Disp: 100 Each^Rfl: 3 insulin glargine (LANTUS SOLOSTAR, BASAGLAR KWIKPEN) 100 unit/mL (3 mL)^Inject 26 Units subcutaneously daily at bedtime.^Disp: 6 Pen^Rfl: 1 blood sugar diagnostic (BLOOD GLUCOSE TEST) test strip^3x/day^Disp: 100 Strip^Rfl: 11 Blood-Glucose Meter monitoring kit^For monitoring sugars 3x/day (patient on insulin)^Disp: 1 Each^Rfl: 1 Lancets lancets^Use as instructed 3x/day^Disp: 100 Each^Rfl: 11 alcohol swabs (ALCOHOL PREP PADS)^Apply 1 application to affected area as directed.^Disp: 100 Each^Rfl: 3 Medication Comments documented by Elisabeth Cartwright RN on 04/19/2021 at 0850. SEE EMAR FOR MEDICATIONS TAKEN LAST 04/19/21 07/31/20 The medications are managed by this patient by: PATIENT Miranda Lewis, OA MEDICATION COMPLIANCE: No ALLERGIES Allergen Reactions Penicillins Unknown Pt states he thinks he had a reaction as a child PAST SURGICAL HISTORY: PAST SURGICAL HISTORY Procedure Laterality Date COLONOSCOPY GEN ANES 07/24/2020 Invasive Adenocarcinoma arising in a Tubulovillous Adenoma in the lower rectum, Tubular Adenomas, Fragment of Hyperplastic polyp, Internal Hemorrhoids EGD 07/24/2020 Will's Esophagus, Hyperplastic polyp in Duodenum EXCISION OF RECTAL TUMOR, TRANSANAL 11/24/2020 Dr. Ahmadi SOCIOECONOMIC HISTORY: Employer And Job Title: None on file Years Of Education Completed: Not specified Marital Status: Single with no children SOCIAL INFORMATION: Provider Stated Diagnosis: Major Depressive Disorder Satisfaction With Relationships: per [facility] 01/17 "Pt reports to living with brothers and sisters. Patient states that he sometimes does not get along with his siblings. Pt states he came from a family of 17 siblings, he is number 17" Does Patient Have Minor Children for Whom He/She is Responsible?: No Education Level: Some High School (9th grade per [facility]) Is the Patient a [place]: No Legal History: No Legal History How Legal Issues Were Verified: [facility] [employer] Project Manager of Courts Website;[facility]'s Sexual Offender Website Gender Specific Test: Not Applicable Sex at Time of : Male FAMILY HISTORY: FAMILY HISTORY Problem Relation Age of Onset other (Heart stroke) Mother other (Glaucoma lung cancer) Father Glaucoma Sister Glaucoma Brother OBSERVATIONS Level of Consciousness Alert: Yes Orientation: Person;Place;Time;Situation (per psych consult) Physical Appearance Appears: Overweight Speech Rate: Appropriate (per psych consult) Volume: Appropriate (per psych consult) Thought Processes Thought: Linear and Organized (per psych consult) Thought Content Delusions: None Observed (per psych consult) Hallucinations: None Evident (per psych consult) Memory: Impaired (mild per psych consult) Mood & Affect Observed/Reported: Angry/Irritable (per psych consult) Range of Affect: Flat;Constricted/Restricted (per psych consult) Sleep: Difficulty Sleeping (per psych consult) Appetite: Normal Appetite Energy: Lack of Energy (per psych consult) Non-Suicidal Self Injury Non-Suicidal Self Injury: None Suicidal Ideation Suicidal Ideation: None;Inconsistent Patient Report (per psych consult) Description of Inconsistancy: denies SI. stopped medications hoping to sooner Homicidal Ideation Homicidal Ideation: None (per psych consult) Non-Lethal Harm to Others or Damage/Destruction to Property Harm to Others or Damage/Destruction of Property: None Medical Conditions Medical Conditions Increasing Risks: None CHEMICAL DEPENDENCY Substance Use: No Referral for Substance Abuse Services: No Toxicology Screen Results: Positive Positive Result: Marijuana ACTIVITY Activities of Daily Living: Independent Mobility: Cane Continence: Continent MENTAL HEALTH SERVICES: Agency/Organization: [facility] Treatment History: None INTERVENTIONS Sources of Information: Patient;Epic;Prior Referrals;Inpatient Medical Staff Patient Assessed by Intake via: Other: See Comment (Intake tried to speak with patient via phone 01/20 he didn't answer) Coordination of care with: Current Providers Goals/Objectives: Admission to inpatient psychiatric unit for further evaluation and treatment of symptoms of illness DISPOSITION & PLAN: Patient Assessed by Intake via: Other: See Comment (Intake tried to speak with patient via phone 01/20 he didn't answer) Patient stated goals: Goals: To improve my functional status Coordination of Care with: Current Providers Assessment/Impressions: Inpatient Need Plan: Consult with Psychiatry on-call, ED Psych consult, or other provider;Secure an inpatient bed;Await medical clearance Goals/Objectives: Admission to inpatient psychiatric unit for further evaluation and treatment of symptoms of illness Total time spent (minutes) in Supportive Care for this patient: MEDICAL CLEARANCE Initial Date: 01/20/22 Initial Time: 732 Reviewed medical history with physician: Yes Reviewed abnormal labs with physician: Yes Discussed case with Dr. Olivas who states that José Manuel Ashton is a candidate for admission. Provider Stated Diagnosis: Major Depressive Disorder Admitting Provider: Dr. Olivas Admission Status: Full Admit Unit: [address] Bed#: Room 617 Bed 1 Report Given To: Chele ZHANG Report Date: 01/20/22 Report Time: 134 Admission Type: Voluntary Is Patient Less Than 18 Years of Age or have a Guardian/Healthcare Power of Entertainer & Comic?: No Disposition Date: 01/20/22 Disposition Time: 135 SIGNATURE: Yael Huerta [facility] PATIENT NAME: José Manuel Ashton DATE: January 19, 2022 TIME: 5:16 PM [facility] NoteHNO ID: [id number] Author: Jennifer Castillo RN Service: Nursing Author Type: Registered Nurse Type: Nursing Progress Note Filed: 01/18/2022 4:10 PM Note Text: 1600 refuses to use urinal.[id number] NoteHNO ID: [id number] Author: Rafal Carroll PA-C Service: Psychiatry Author Type: Physician Generator Assembler Type: Plan of Care Filed: 01/18/2022 6:05 PM Note Text: PLAN OF CARE José Manuel Ashton is a 61 year old male with history of MDD, BRANDAN, Cannabis Use Disorder, Tobacco Use Disorder (in remission), Alcohol Use Disorder (in full remission?), Obesity, DM2, HTN, BPH, CKD3, Vitamin D Deficiency, Malignant Neoplasm of Rectum, who presented to the ED as recommended by his refrigeration insulator for a psychiatric evaluation in the context of poor compliance to treatment. 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 Kennedy for "psych eval" who saw him in office earlier today. Note from Dr. Kennedy is as follows, "He doesn't have a will to take any medications or do anything to improve his health. He states he would like to get better but doesn't understand why he feels like not taking any of his medications. He feels depressed and very overwhelmed. He denies hallucinations or suicidal or homicidal ideation. Will send the patient to the ER for psychiatric evaluation." The patient again denies SI, HI, hallucinations. Patient reports a known psychiatric history of anxiety and depression for which he sees outpatient psychiatry. He is prescribed Wellbutrin which he is not currently taking. The patient smokes marijuana and uses alcohol on occasion to help with his anxiety and "anger." Patient lives with his brother and sister. He does not receive any medical assistance at home and states that he would prefer not to have a nurse come to his house as his brother would "spread rumors about his health problems." The patient reiterates to me that he is "confused" by the amount of medications he is prescribed. He states he does not understand why he is taking them. He states "I will try to do good and take them for 2 to 3 days in a row, but then I just stop." Of note, this is a longstanding issue. The patient was seen by a psychiatrist in May of this year after a short stay in a nursing facility. At that time the patient was unwilling to take his medications and Dr. Leon of psychiatry placed a referral for home health." Met with patient at bedside. Patient is sedated but arousable. He is unkept, obese, in hospital gown. Oriented to mm/yy. Knows he is in the hospital but does not recall the name. Cooperative but gives minimal information. Somewhat drowsy during encounter. Occasionally dismissive. Thought process is linear/goal directed. Says he is here because the doctor sent him here "because I was not taking my medication." Admits to longstanding history of poor compliance to meds. Does not offer a reason why he does not take his meds. Vague about his psychiatric symptoms. When asked if he is feeling depressed, states "I guess." Says he had a psychiatrist but "didn't go back." Was prescribed Wellbutrin, but didn't take. Per [facility], his last psych visit was in 05/31/[address] Inez Leon MD. Says sleep is poor. When asked about his appetite, he jokes about his obesity but then says he is cutting food intake down. Denies hallucinations. Energy is low, "I need energy." Denies SI or HI. Denies history of suicide. Voices frustration over his toxicology results, says he has not had alcohol for 40+ years, does not understand how he could be + for alcohol. BAL 26 on 01/17/2022 @8:47 PM. UDS + thc. When asking how much he has been smoking, states "as much as I want." When asked to clarify, reports using 3 joints per day. Admits to feeling "confused," but not able to elaborate. Reports feeling somewhat anxious today. Reports history of anger, "I go off sometimes." At this time, it's unclear if low energy, low motivation, not caring for his health, ?cognitive impairment are 2/2 depression and/or substance induced, and/or 2/2 medical conditions. Lab Results Component Value Date UAMPH Negative 01/17/2022 UBARB2 Negative 01/17/2022 UBENZ Negative 01/17/2022 UCOC2 Negative 01/17/2022 UOPI Negative 01/17/2022 UOXYC Negative 01/17/2022 UPCP Negative 01/17/2022 UTHC Preliminary positive (A) 01/17/2022 UETOH <11 01/17/2022 TSH Date Value Ref Range Status 01/17/2022 1.870 0.270 - 4.200 mIU/L Final Vitamin B12 Date Value Ref Range Status 04/23/2021 724 232-1,245 pg/mL Final Vitamin D 12.2 (01/03/2022) DIAGNOSIS: - MDD - BRANDAN - Cannabis Use Disorder - Alcohol Use Disorder, ?remission - ?cognitive impairment PLAN: - Will hold on resuming wellbutrin given h/o AUD, unclear sobriety - Start on effexor XR 37.5 mg in (more content not included)...[facility] 01-18-2022 NoteHNO ID: [id number] Author: Miranda Nash APRN.LEX Service: Hospital Medicine Author Type: Nurse Practitioner Type: Progress Notes Filed: 01/18/2022 12:59 PM Note Text: HOSPITAL MEDICINE PROGRESS NOTE SERVICE DATE: 01/18/2022 SERVICE TIME: 12:33 PM Patient chart reviewed in detail Vital signs, progress notes, and lab results reviewed Case discussed in interdisciplinary team rounds Case discussed with bedside nurse CHIEF COMPLAINT: lower abdominal pain INTERVAL HPI: Patient seen and examined. No acute events overnight. Reports RLQ abdominal discomfort radiating to LLQ. Characterizes the pain as intermittent, sharp, and chronic for the past 2 to 3 years. Endorses intermittent constipation. Reports non compliance with medication (no medication for the past 2 to 3 months) and follow up. Denies fever, chills, shortness of breath, chest pain, or NVD. Requesting diet after CT. OBJECTIVE: BP 123/58 Pulse 85 Temp 36.4 ?C (97.5 ?F) (Oral) Resp 18 Ht 177.8 cm (5' 10") Wt 115.1 kg (253 lb 11.2 oz) SpO2 96% BMI 36.40 kg/m? Physical Exam Constitutional: Appearance: Normal appearance. Disheveled Obese HENT: Head: Normocephalic. Eyes: Pupils: Pupils are equal, round, and reactive to light. Cardiovascular: Rate and Rhythm: Normal rate and regular rhythm. Pulses: Normal pulses. Trace BLE edema Heart sounds: Normal heart sounds. Pulmonary: Effort: Pulmonary effort is normal. Breath sounds: Normal breath sounds with decrease in BS bibasilar Abdominal: General: Abdomen is large and soft. Bowel sounds are normal. Palpations: Abdomen is soft. Musculoskeletal: General: Normal range of motion. Cervical back: Normal range of motion. Skin: General: Skin is warm and dry. Neurological: General: No focal deficit present. Mental Status: He is alert and oriented to person, place, and time. Psychiatric: Mood and Affect: Mood normal A/P: Principal Problem: Hyperglycemia POA: Yes Type 2 diabetes mellitus, with long-term current use of insulin (HCC) POA: Yes H/O medication noncompliance POA: Yes Assessment AND Plan: Recent Labs 01/18/22 1136 01/18/22 0821 01/17/22 2340 01/17/22 2313 01/17/22 2039 PCGLUCOSE 335* 331* 246* 254* 286* -presented to the ED on request of his Machine Operator Farmworker, Dr Kennedy, for Psych evaluation (increasing depression). ED lab work revealed hyperglycemia with elevated ketones (no gap) -most recent HgA1c 13.4 (01/03/2022) -AC and HS accucheck with lispro SSI. Will increase meals to Scale 3 -resume Lantus 26 units HS -resume Pioglitazone -will hold metformin -carb controlled diet -advise medication compliance Active Problems: Marijuana use POA: Yes Assessment AND Plan: -Utox (+) -advise cessation Obesity, Class II, BMI 35-39.9 POA: Yes Assessment AND Plan: -advise lifestyle modifications Anxiety and depression POA: Yes Moderate episode of recurrent major depressive disorder (HCC) POA: Yes Assessment AND Plan: -presented to the ED per request of Machine Operator Farmworker for Psych evaluation -await Psych evaluation Mixed hyperlipidemia POA: Yes Assessment AND Plan: -no recent lipid panel -reports non compliance with medication Hypertension, essential POA: Yes Assessment AND Plan: -stable -reports non compliance with medication -continue lisinopril Benign prostatic hyperplasia POA: Yes Assessment AND Plan: -reports non compliance with medication -continue Tamsulosin Stage 3a chronic kidney disease (HCC) POA: Yes Assessment AND Plan: -Cr 1.18 at baseline -avoid Nephrotoxic medications -follow up as OP Alcohol dependence (HCC) POA: Unknown Assessment AND Plan: -Utox (+) -advise cessation Abdominal discomfort POA: Unknown Constipation POA: Unknown Assessment AND Plan: -reports lower quadrant abdominal pain; reports chronic for 2 to 3 years -imaging with chronic bladder outlet obstruction and possible constipation -endorses constipation -continue Tamsulosin -start Colace BID and Miralax daily CT ABD/PEL WO IVCON Final Result IMPRESSION: No acute process identified involving the abdomen or pelvis. There are findings possibly related to constipation. Findings of remote granulomatous disease. Diffuse mural thickening of the bladder likely related to chronic bladder outlet obstruction. XR CHEST 1V FRONTAL PORT Final Result IMPRESSION: Stable exam with no evidence of acute disease. CBC, Coags, BMP, Mg, Phos Recent Labs 01/18/22 0527 01/17/222046 WBC 6.34 6.69 HB 13.9 16.1 HCT 41.5 49.3 PLT 258 283 NA 137 137 K 4.7 4.3 CHLOR 101 98 CO2 26 27 BUN 24 26* CREAT 1.18 1.22 GLUC 415* 312* CA 8.9 10.2 Liver Function, Amylase, AND Lipase Recent Labs 01/17/222046 TPROT 7.0 ALB 4.0 ALT 15 AST 14 ALKPHOS 127* TBILI 0.3 Cardiac Enzymes Recent Labs 01/17/222046 TROPT 0.011 VTE Prophylaxis: VTE prophylaxis appropriat (more content not included)... [id number] History of Past illness Narrative* Problem Noted Date Resolved Date Abdominal discomfort 01/18/2022 01/19/2022 Microscopic hematuria 03/08/2021 01/17/2022 Weakness 05/05/2020 06/15/2020 Decreased mobility and endurance 05/05/2020 06/15/2020 documented as of this encounter (statuses as of 01/20/2022) [facility] History of Past illness Narrative* Problem Noted Date Resolved Date Abdominal discomfort 01/18/2022 01/19/2022 Microscopic hematuria 03/08/2021 01/17/2022 Weakness 05/05/2020 06/15/2020 Decreased mobility and endurance 05/05/2020 06/15/2020 documented as of this encounter (statuses as of 01/28/2022) [facility] of Past illness Narrative* Problem Noted Date Resolved Date Abdominal discomfort 01/18/2022 01/19/2022 Microscopic hematuria 03/08/2021 01/17/2022 Weakness 05/05/2020 06/15/2020 Decreased mobility and endurance 05/05/2020 06/15/2020 documented as of this encounter (statuses as of 02/21/2022) [facility] of Past illness Narrative* Problem Noted Date Resolved Date Abdominal discomfort 01/18/2022 01/19/2022 Microscopic hematuria 03/08/2021 01/17/2022 Weakness 05/05/2020 06/15/2020 Decreased mobility and endurance 05/05/2020 06/15/2020 documented as of this encounter (statuses as of 02/21/2022) [facility] of Past illness Narrative* Problem Noted Date Resolved Date Abdominal discomfort 01/18/2022 01/19/2022 Microscopic hematuria 03/08/2021 01/17/2022 Weakness 05/05/2020 06/15/2020 Decreased mobility and endurance 05/05/2020 06/15/2020 documented as of this encounter (statuses as of 02/21/2022) [facility] of Past illness Narrative* Problem Noted Date Resolved Date Abdominal discomfort 01/18/2022 01/19/2022 Microscopic hematuria 03/08/2021 01/17/2022 Weakness 05/05/2020 06/15/2020 Decreased mobility and endurance 05/05/2020 06/15/2020 documented as of this encounter (statuses as of 02/23/2022) [facility] of Past illness Narrative* Problem Noted Date Resolved Date Abdominal discomfort 01/18/2022 01/19/2022 Microscopic hematuria 03/08/2021 01/17/2022 Weakness 05/05/2020 06/15/2020 Decreased mobility and endurance 05/05/2020 06/15/2020 documented as of this encounter (statuses as of 03/01/2022) [facility] of [facility] illness Narrative* Problem Noted Date Resolved Date Abdominal discomfort 01/18/2022 01/19/2022 Microscopic hematuria 03/08/2021 01/17/2022 Weakness 05/05/2020 06/15/2020 Decreased mobility and endurance 05/05/2020 06/15/2020 documented as of this encounter (statuses as of 03/01/2022) [facility] of Past illness Narrative* Problem Noted Date Resolved Date Abdominal discomfort 01/18/2022 01/19/2022 Microscopic hematuria 03/08/2021 01/17/2022 Weakness 05/05/2020 06/15/2020 Decreased mobility and endurance 05/05/2020 06/15/2020 documented as of this encounter (statuses as of 03/11/2022) [facility] of [facility] illness Narrative* Problem Noted Date Resolved Date Abdominal discomfort 01/18/2022 01/19/2022 Microscopic hematuria 03/08/2021 01/17/2022 Weakness 05/05/2020 06/15/2020 Decreased mobility and endurance 05/05/2020 06/15/2020 documented as of this encounter (statuses as of 03/12/2022) [facility] of [facility] illness Narrative* Problem Noted Date Resolved Date Abdominal discomfort 01/18/2022 01/19/2022 Microscopic hematuria 03/08/2021 01/17/2022 Weakness 05/05/2020 06/15/2020 Decreased mobility and endurance 05/05/2020 06/15/2020 documented as of this encounter (statuses as of 03/17/2022) [facility] Narrative* Problem Noted Date Resolved Date Abdominal discomfort 01/18/2022 01/19/2022 Microscopic hematuria 03/08/2021 01/17/2022 Weakness 05/05/2020 06/15/2020 Decreased mobility and endurance 05/05/2020 06/15/2020 documented as of this encounter (statuses as of 03/23/2022) [facility] Narrative* Problem Noted Date Resolved Date Abdominal discomfort 01/18/2022 01/19/2022 Microscopic hematuria 03/08/2021 01/17/2022 Weakness 05/05/2020 06/15/2020 Decreased mobility and endurance 05/05/2020 06/15/2020 documented as of this encounter (statuses as of 04/05/2022) [facility] illness Narrative* Problem Noted Date Resolved Date Abdominal discomfort 01/18/2022 01/19/2022 Microscopic hematuria 03/08/2021 01/17/2022 Weakness 05/05/2020 06/15/2020 Decreased mobility and endurance 05/05/2020 06/15/2020 documented as of this encounter (statuses as of 04/07/2022) [facility] illness Narrative* Problem Noted Date Resolved Date Abdominal discomfort 01/18/2022 01/19/2022 Microscopic hematuria 03/08/2021 01/17/2022 Weakness 05/05/2020 06/15/2020 Decreased mobility and endurance 05/05/2020 06/15/2020 documented as of this encounter (statuses as of 04/12/2022) [facility] Narrative* Problem Noted Date Resolved Date Abdominal discomfort 01/18/2022 01/19/2022 Microscopic hematuria 03/08/2021 01/17/2022 Weakness 05/05/2020 06/15/2020 Decreased mobility and endurance 05/05/2020 06/15/2020 documented as of this encounter (statuses as of 04/13/2022) [facility] illness Narrative* Problem Noted Date Resolved Date Abdominal discomfort 01/18/2022 01/19/2022 Microscopic hematuria 03/08/2021 01/17/2022 Weakness 05/05/2020 06/15/2020 Decreased mobility and endurance 05/05/2020 06/15/2020 documented as of this encounter (statuses as of 04/21/2022) [facility] of Past illness Narrative* Problem Noted Date Resolved Date Abdominal discomfort 01/18/2022 01/19/2022 Microscopic hematuria 03/08/2021 01/17/2022 Weakness 05/05/2020 06/15/2020 Decreased mobility and endurance 05/05/2020 06/15/2020 documented as of this encounter (statuses as of 04/26/2022) [facility] of [facility] illness Narrative* Problem Noted Date Resolved Date Abdominal discomfort 01/18/2022 01/19/2022 Microscopic hematuria 03/08/2021 01/17/2022 Weakness 05/05/2020 06/15/2020 Decreased mobility and endurance 05/05/2020 06/15/2020 documented as of this encounter (statuses as of 05/04/2022) [facility] of Past illness Narrative* Problem Noted Date Resolved Date Abdominal discomfort 01/18/2022 01/19/2022 Microscopic hematuria 03/08/2021 01/17/2022 Weakness 05/05/2020 06/15/2020 Decreased mobility and endurance 05/05/2020 06/15/2020 documented as of this encounter (statuses as of 05/06/2022) [facility] of Past illness Narrative* Problem Noted Date Resolved Date Abdominal discomfort 01/18/2022 01/19/2022 Microscopic hematuria 03/08/2021 01/17/2022 Weakness 05/05/2020 06/15/2020 Decreased mobility and endurance 05/05/2020 06/15/2020 documented as of this encounter (statuses as of 05/11/2022) [facility] of Past illness Narrative* Problem Noted Date Resolved Date Abdominal discomfort 01/18/2022 01/19/2022 Microscopic hematuria 03/08/2021 01/17/2022 Weakness 05/05/2020 06/15/2020 Decreased mobility and endurance 05/05/2020 06/15/2020 documented as of this encounter (statuses as of 05/19/2022) [facility] of [facility] illness Narrative* Problem Noted Date Resolved Date Abdominal discomfort 01/18/2022 01/19/2022 Microscopic hematuria 03/08/2021 01/17/2022 Weakness 05/05/2020 06/15/2020 Decreased mobility and endurance 05/05/2020 06/15/2020 documented as of this encounter (statuses as of 05/19/2022) [facility] of Past illness Narrative* Problem Noted Date Resolved Date Abdominal discomfort 01/18/2022 01/19/2022 Microscopic hematuria 03/08/2021 01/17/2022 Weakness 05/05/2020 06/15/2020 Decreased mobility and endurance 05/05/2020 06/15/2020 documented as of this encounter (statuses as of 06/06/2022) [facility] of [facility] illness Narrative* Problem Noted Date Resolved Date Abdominal discomfort 01/18/2022 01/19/2022 Microscopic hematuria 03/08/2021 01/17/2022 Weakness 05/05/2020 06/15/2020 Decreased mobility and endurance 05/05/2020 06/15/2020 documented as of this encounter (statuses as of 06/22/2022) [facility]10-18-2022 History of Past illness Narrative* Problem Noted Date Resolved Date Abdominal discomfort 01/18/2022 01/19/2022 Microscopic hematuria 03/08/2021 01/17/2022 Weakness 05/05/2020 06/15/2020 Decreased mobility and endurance 05/05/2020 06/15/2020 documented as of this encounter (statuses as of 06/29/2022) [facility]-18[facility] History of Past illness Narrative* Problem Noted Date Resolved Date Abdominal discomfort 01/18/2022 01/19/2022 Microscopic hematuria 03/08/2021 01/17/2022 Weakness 05/05/2020 06/15/2020 Decreased mobility and endurance 05/05/2020 06/15/2020 documented as of this encounter (statuses as of 06/30/2022) [facility] History of Past illness Narrative* Problem Noted Date Resolved Date Abdominal discomfort 01/18/2022 01/19/2022 Microscopic hematuria 03/08/2021 01/17/2022 Weakness 05/05/2020 06/15/2020 Decreased mobility and endurance 05/05/2020 06/15/2020 documented as of this encounter (statuses as of 07/01/2022) [facility] History of Past illness Narrative* Problem Noted Date Resolved Date Abdominal discomfort 01/18/2022 01/19/2022 Microscopic hematuria 03/08/2021 01/17/2022 Weakness 05/05/2020 06/15/2020 Decreased mobility and endurance 05/05/2020 06/15/2020 documented as of this encounter (statuses as of 07/15/2022) [facility] History of Past illness Narrative* Problem Noted Date Resolved Date Abdominal discomfort 01/18/2022 01/19/2022 Microscopic hematuria 03/08/2021 01/17/2022 Weakness 05/05/2020 06/15/2020 Decreased mobility and endurance 05/05/2020 06/15/2020 documented as of this encounter (statuses as of 07/27/2022) [facility] History of Past illness Narrative* Problem Noted Date Resolved Date Abdominal discomfort 01/18/2022 01/19/2022 Microscopic hematuria 03/08/2021 01/17/2022 Weakness 05/05/2020 06/15/2020 Decreased mobility and endurance 05/05/2020 06/15/2020 documented as of this encounter (statuses as of 07/28/2022) [facility] History of Past illness Narrative* Problem Noted Date Resolved Date Abdominal discomfort 01/18/2022 01/19/2022 Microscopic hematuria 03/08/2021 01/17/2022 Weakness 05/05/2020 06/15/2020 Decreased mobility and endurance 05/05/2020 06/15/2020 documented as of this encounter (statuses as of 08/09/2022) [facility] History of Past illness Narrative* Problem Noted Date Resolved Date Abdominal discomfort 01/18/2022 01/19/2022 Microscopic hematuria 03/08/2021 01/17/2022 Weakness 05/05/2020 06/15/2020 Decreased mobility and endurance 05/05/2020 06/15/2020 documented as of this encounter (statuses as of 08/13/2022) [facility] History of Past illness Narrative* Problem Noted Date Resolved Date Abdominal discomfort 01/18/2022 01/19/2022 Microscopic hematuria 03/08/2021 01/17/2022 Weakness 05/05/2020 06/15/2020 Decreased mobility and endurance 05/05/2020 06/15/2020 documented as of this encounter (statuses as of 08/15/2022) [facility]10-18-2022 NoteHNO ID: [id number] Author: Kylah Orantes MD Service: ? Author Type: Physician Type: Progress Notes Filed: 01/18/2022 11:14 PM Note Text: [facility] - General Progress Note JOSÉ MANUEL ASHTON : 1960 AGE: 61 SEX: M CSN: [id number] [facility]: [facility] [place] LOCATION: [facility] ATTENDING PHYSICIAN: Kylah Orantes M.D. DATE OF SERVICE: 01/18/2022 A 61-year-old, who was admitted to the hospital after seen today by his physician for a psych evaluation. 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 Reports RLQ abdominal discomfort radiating to LLQ. Characterizes the pain as intermittent, sharp, and chronic for the past 2 to 3 years. Endorses intermittent constipation. Reports non compliance with medication (no medication for the past 2 to 3 months) and follow up. Denies fever, chills, shortness of breath, chest pain, or NVD. Requesting diet after CT. ASSESSMENT AND PLAN: 1. Hyperglycemia. Sliding scale insulin. Better 2. Drug alcohol abuse. Urine toxic and screen. Psych consultation. 3. Hypertension. Resume home medication. Monitor reading and adjust treatment as needed. 4. lower quadrant abdominal pain with tenderness. Obtain CT of abdomen with oral contrast. Case has been discussed with consultants. We will follow up. 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 Detected on EMG Rectal cancer (HCC) Spinal stenosis of lumbar region with neurogenic claudication Vitamin D deficiency Social History Tobacco Use Smoking status: Former Packs/day: 1.00 Years: 37.00 Pack years: 37.00 Types: Cigarettes Quit date: 04/03/2010 Years since quittin.8 Smokeless tobacco: Never Tobacco comments: Smokes [place] Vaping Use Vaping Use: Never used Substance Use Topics Alcohol use: Not Currently Drug use: Yes Types: Marijuana Comment: daily FAMILY HISTORY Problem Relation Age of Onset other (Heart stroke) Mother other (Glaucoma lung cancer) Father Glaucoma Sister Glaucoma Brother PAST SURGICAL HISTORY Procedure Laterality Date COLONOSCOPY GEN ANES 07/24/2020 Invasive Adenocarcinoma arising in a Tubulovillous Adenoma in the lower rectum, Tubular Adenomas, Fragment of Hyperplastic polyp, Internal Hemorrhoids EGD 07/24/2020 Will's Esophagus, Hyperplastic polyp in Duodenum EXCISION OF RECTAL TUMOR, TRANSANAL 11/24/2020 Dr. Ahmadi Lab Results Component Value Date HBA1C 13.4 01/03/2022 HBA1C 11.3 11/05/2021 HBA1C 11.5 10/05/2021 R.O.S negative other than HPI AND PMH all other SYS reviewed and negative. Current Facility-Administered Medications Medication Dose Route Frequency Provider Last Rate Last Admin atropine 0.5 mg injection 0.5 mg INTRAVENOUS PRN Radha Mack APRN.PRODUCTION INTERN NaCl 0.9% iv flush bag 20 mL INTRAVENOUS PRN Radha Mack APRN.PRODUCTION INTERN sodium chloride 0.9 % (flush) 3-5 mL (BD POSIFLUSH) 3-5 mL INTRAVENOUS q 12 H Radha Mack APRN.PRODUCTION INTERN 5 mL at 01/18/222014 aluminum-magnesium hydroxide-simethicone 200-200-20 mg/5 mL 30 mL (MAALOX,MYLANTA,MAG-AL PLUS) 30 mL ORAL DAILY PRN Radha Mack APRN.PRODUCTION INTERN acetaminophen 650 mg tab(s) (TYLENOL) 650 mg ORAL q 6 H PRN Radha Mack APRN.PRODUCTION INTERN 650 mg at 01/18/22 0818 insulin lispro injection (rapid acting) (ADMELOG) SUBCUTANEOUS AT BEDTIME Radha Mack APRN.PRODUCTION INTERN 2 Units at 01/18/22 0123 hydrALAZINE 10 mg injection (APRESOLINE) 10 mg INTRAVENOUS q 6 H PRN Radha Mack APRN.PRODUCTION INTERN lisinopril 20 mg tab(s) (ZESTRIL, PRINIVIL) 20 mg ORAL DAILY Radha Mack APRN.PRODUCTION INTERN 20 mg at 01/18/22 0817 tamsulosin 0.4 mg cap(s) (FLOMAX) 0.4 mg ORAL AT BEDTIME Radha Mack APRN.PRODUCTION INTERN 0.4 mg at 01/18/222014 enteric contrast (radiology procedure) ORAL DIRECTED PRN Kylah Orantes MD insulin lispro injection (rapid acting) (ADMELOG) SUBCUTANEOUS w MEALS Miranda Nash APRN.PRODUCTION INTERN 9 Units at 01/18/22 1729 pioglitazone 45 mg tab(s) (ACTOS) 45 mg ORAL DAILY Miranda Nash APRN.PRODUCTION INTERN 45 mg at 01/18/22 1218 insulin glargine 26 Units pen (long acting) (LANTUS SOLOSTAR, BASAGLAR KWIKPEN) 26 Units SUBCUTANEOUS AT BEDTIME Miranda Nash APRN.PRODUCTION INTERN 26 Units at 01/18/222015 docusate sodium 100 mg cap(s) (COLACE) 100 mg ORAL BID Miranda Nash APRN.PRODUCTION INTERN 100 mg at 01/18/222014 polyethylene glycol 3350 17 g packet (MIRALAX, GLYCOLAX) 17 g ORAL DAILY Miranda Nash APRN.PRODUCTION INTERN 17 g at 01/18/22 1222 [START ON 01/19/2022] venlafaxine ER 3 (more content not included)...[id number] History of Present illness Narrative* Jen Bergman RN - 01/18/2022 9:05 AM EDT PRIMARY CARE COORDINATION QUICK NOTE Patient identified by name and date . Pt admitted to [facility] yesterday. SBAR attached. Jen Bergman RN * Jen Bergman RN - 01/18/2022 8:57 AM EDT PRIMARY CARE COORDINATION SBAR PCC HAND IN José Manuel Ashton, 61 year old male SITUATION: Admitted for Psych Eval Hyperglycemic BACKGROUND: Living arrangements: Lives with Family - Brother and Sister Contact Name and phone number: Meche Sanders (Sister) - Health Optical Glass Wet Inspector: His siblings help Self Care/ADLs: Independent Mobility: Independent Barriers to care/Adherence: Financial Transportation Other - Pt states that he just doesn't want to take his meds or check his blood sugars RECOMMENDATIONS: Pt may need SNF Name of Medical Surgical Tech: Jen Bergman RN [facility] or [facility] office: [facility] (Dr. Vega, PCP) Phone number: [phone] documented in this encounterVan [facility] NoteHNO ID: [id number] Author: Radha Mack APRN.PRODUCTION INTERN Service: Critical Care Author Type: Nurse Practitioner Type: Progress Notes Filed: 01/18/2022 12:35 AM Note Text: Booth Cleaner Coverage Note Patient Name: José Manuel Ashton This is a 61 year old male admitted for hyperglycemia without anion gap and psych eval. He was directed to come to the ED by his refrigeration insulator Dr. Kennedy for concern of patient's decrease willingness to take his medications and feelings of depression. He is admitted to the [facility] for glycemic control. Plan discussed with RN and patient. General admission orders placed; formal admit orders, medication reconciliation and HANDP to follow by primary attending . RN to notify primary team for of new admission and for further recommendations. BP 187/94 Pulse 86 Temp 36.6 ?C (97.9 ?F) (Oral) Resp 17 Ht 177.8 cm (5' 10") Wt 115.1 kg (253 lb 11.2 oz) SpO2 98% BMI 36.40 kg/m? Radha Mack APRN.PRODUCTION INTERN January 18, 2022 12:32 [facility]10-17-2022 NoteCOVID 19 RESULT: SARS-CoV-2 (Agent of COVID-19) Not Detected by RT-PCR or equivalent method. This test has been authorized by FDA under an Emergency Use Authorization (EUA). INFLUENZA A PCR: Negative for Influenza A by RT-PCR INFLUENZA B PCR: Negative for Influenza B by RT-PCR RSV PCR: Negative for Respiratory Syncytial Virus (RSV) by PCROaksan HospitalComment on above:Performed By: #### [id number] ####[facility]ATORYCLIA [id number] [address] 01-17-2022 Miscellaneous Notes* Behavorial Health Intake - OSCAR Pandya - 01/17/2022 8:50 PM EDT BEHAVIORAL HEALTH INTAKE NOTE SERVICE DATE: 01/17/2022 SERVICE TIME: 8:38 pm Nature of the crisis: Psychiatric evaluation for depression from Machine Operator Farmworker outpatient appointment Presenting Problem: José Manuel Ashton is a 61 year old male h/o obesity class, fatty liver, marijuana use, MEKHI not on treatment, vitamin D deficiency,BPH, GERD, 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 Per ED note Pt sent by Dr Kennedy for psychiatric eval from appointment today Pt states he is having hard time understanding his medical dx and keeping up with his T2DM. " Per Dr. Kennedy Epic note 01/17/2022 "He doesn't take any medications because he "doesn't feel like taking any medications". He is having problems with chronic pain and lack of sleep. He states he stays up the whole night walking around in the house the whole night. He denies suicidal or homicidal ideation. He just smokes pot to calm himself down and it works. He avoids drinking alcohol because "it makes me mean so I avoid going down that route". He would like to get helped. He has a psychiatrist at [facility] at [place], [place]." This food writer assessed patient via face to face who presents alert and oriented x 4, appears overweight and disheveled, speech is within normal limits appropriate to tone, prosody, melody, phonetic, and syntax, thought process is linear and organized, difficulty concentrating at times, and a poor historian,, mood is depressed with flat affect, with impaired judgement and insight into illness. Patient reports that his Machine Operator Farmworker sent him to the emergency room for a psychiatric evaluation due tonot taking his medications. Patient states that he doesn't know why he doesn't take them I just don't do it, I don't know why . Patient denies that he does this in an attempt to sooner although he states I've just given up, nothing seems to be getting better, I have too many things going on . This food writer inquires if patient believes he will get better without taking his medications consistently, in which, patient states I don't know . Patient denies any suicidal ideation or previous suicideattempts. Patient endorses depressive symptoms of feeling hopeless, worthless, dysphoria, anhedonia, isolation, lack of motivation, poor sleep patterns, lack of appetite I starve myself because my sugar is so dolores high , and lack of energy. Patient denies any homicidal ideation, auditory or visual hallucinations, or self-injurious behaviors. Patient endorses BRANDAN symptoms of nightmares, restlessness, anxiety, and constant worry. Patient denies any hx of abuse and states he had 16 siblings, he was number 17. Patient reports that he is supposed to see a psychiatrist and a therapist and take psychotropic medications, but he is non-compliant. Patient states he did not feel they helped although he admitted that he was not taking the medications consistently and missed dosages. Patient reports to smoking THC daily and denies any alcohol use in 40 years although his BAL was 29. Patient does use a wheelchair and states that he has beenforced to a [facility] in the past for not caring for himself. This food writer discussed with patientpotential for a [facility] nurse to come into home to assist with his medication management to ensure he is caring for self properly and taking medications. Patient has been calm and cooperative in the ED with no restraints or medications administered. This food writer spoke to ED physician, Dr. Rascon, who is medically admitting patient with social work consult. 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 Detected on EMG Rectal cancer (HCC) Spinal stenosis of lumbar region with neurogenic claudication Vitamin D deficiency SOCIAL HISTORY: Social History Tobacco Use Smoking status: Former Packs/day: 1.00 Years: 37.00 Pack years: 37.00 Types: Cigarettes Quit date: 04/03/2010 Years since quittin.8 Smokeless tobacco: Never Tobacco comments: Smokes [place] Vaping Use Vaping Use: Never used Substance Use Topics Alcohol use: Not Currently Drug use: Yes Types: Marijuana Comment: daily MEDICATIONS: tamsulosin (FLOMAX) 0.4 mg^Take 1 capsule by mouth once daily.^Disp: 90 capsule^Rfl: 5 rosuvastatin (CRESTOR) 5 mg tablet^Take 1 tablet by mouth daily at bedtime.^Disp: 30 tablet^Rfl: 1 dulaglutide (TRULICITY) 1.5 mg/0.5 mL pen injector^Inject 1.5 mg subcutaneously one time a week.^Disp: 4 Each^Rfl: 1 pioglitazone (ACTOS) 45 mg tablet^Take 1 tablet by mouth once daily.^Disp: 90 tablet^Rfl: 3 metFORMIN ER (GLUCOPHAGE XR) 500 mg 24 hr tablet^Two tablets before breakfast and before supper^Disp: 120 tablet^Rfl: 1 Insulin [place], Disposable, (COMFORT EZ PEN NEEDLES) 29 gauge x 1/2"^1 Each once daily.^Disp: 100 Each^Rfl: 3 insulin glargine (LANTUS SOLOSTAR, BASAGLAR KWIKPEN) 100 unit/mL (3 mL)^Inject 26 Units subcutaneously daily at bedtime.^Disp: 6 Pen^Rfl: 1 buPROPion SR (WELLBUTRIN SR) 100 mg 12 hr tablet^Take 1 tablet by mouth once daily.^Disp: 30 tablet^Rfl: [address] (PROTONIX) 40 mg tablet^Take 1 tablet by mouth twice daily before meals (0600/1600).^Disp: 60 tablet^Rfl: 0 blood sugar diagnostic (BLOOD GLUCOSE TEST) test strip^3x/day^Disp: 100 Strip^Rfl: 11 iv contrast (will be provided with radiology test)^MRI Pelvis Inject, intravenously, once for 1 dose. No IV access, insert saline lock prior to the beginning of sedation, infusion, injection of imaging exam. Discontinue saline lock post exam. If Pt has a central line or IVAD, may access for administration according to line specific nursing protocol. Once exam is complete flush line and de-access according to line specific nursing protocol in the MR contrast administration guidelines link.^Disp:1 Each^Rfl: 0 lidocaine (XYLOCAINE) 2 % jelly^Apply 1 application to affected area three times daily.^Disp: 30 mL^Rfl: 2 albuterol HFA (PROVENTIL HFA, VENTOLIN HFA) 90 mcg/actuation inhaler^Inhale 2 Puffs as instructed every 4 hours as needed for wheezing/shortness of breath.^Disp: 1 Each^Rfl: 0 gabapentin (NEURONTIN) 300 mg capsule^Take 1 capsule by mouth three times daily for 90 days.^Disp: 90 capsule^Rfl: 2 (Patient not taking: Reported on 10/13/2021) Blood-Glucose Meter monitoring kit^For monitoring sugars 3x/day (patient on insulin)^Disp: 1 Each^Rfl: 1 Lancets lancets^Use as instructed 3x/day^Disp: 100 Each^Rfl: 11 alcohol swabs (ALCOHOL PREP PADS)^Apply 1 application to affected area as directed.^Disp: 100 Each^Rfl: 3 Medication Comments documented by Elisabeth Cartwright RN on 04/19/2021 at 0850. SEE EMAR FOR MEDICATIONS TAKEN LAST 04/19/21 07/31/20 The medications are managed by this patient by: PATIENT Miranda Lewis OA MEDICATION COMPLIANCE: No ALLERGIES Allergen Reactions Penicillins Unknown Pt states he thinks he had a reaction as a child PAST SURGICAL HISTORY: PAST SURGICAL HISTORY Procedure Laterality Date COLONOSCOPY GEN ANES 07/24/2020 Invasive Adenocarcinoma arising in a Tubulovillous Adenoma in the lower rectum, Tubular Adenomas, Fragment of Hyperplastic polyp, Internal Hemorrhoids EGD 07/24/2020 Will's Esophagus, Hyperplastic polyp in Duodenum EXCISION OF RECTAL TUMOR, TRANSANAL 11/24/2020 Dr. Ahmadi SOCIOECONOMIC HISTORY: Employer And Job Title: None on file Years Of Education Completed: Not specified Marital Status: Single with no children SOCIAL INFORMATION: Living Arrangements: Home Satisfaction With Relationships: Pt reports to living with brothers and sisters. Patient states that he sometimes does not get along with his siblings. Pt states he came from a family of 17 siblings,he is number 17. Does Patient Have Minor Children for Whom He/She is Responsible?: No Education Level: Some High School (9th grade) Employment Status: Disabled Is the Patient a : No Legal History: No Legal History How Legal Issues Were Verified: [facility] [employer] Project Manager of Courts Website;[place] [facility] Sexual Offender Website Gender Specific Test: Not Applicable Sex at Time of : Male Patient Identified Gender: Male Preferred Pronoun: He/Him/His Sexual Orientation: Heterosexual Cultural/Islam Concerns Cultural Issues or Concerns That Might Affect Treatment: NOne Islam/Spiritual Issues or Concerns That Might Affect Treatment: None FAMILY HISTORY: FAMILY HISTORY Problem Relation Age of Onset other (Heart stroke) Mother other (Glaucoma lung cancer) Father Glaucoma Sister Glaucoma Brother OBSERVATIONS Level of Consciousness Alert: Yes Orientation: Person;Place;Time;Situation Physical Appearance Appears: Disheveled;Overweight Speech Rate: Appropriate Volume: Appropriate Quality: Appropriate to Topic Quantity: Appropriate Thought Processes Thought: Difficulty Concentrating;Poor Historian/Sanitation Worker;Linear and Organized Thought Content Delusions: None Observed Hallucinations: None Evident;Patient Denies Illusions: None Evident;Patient Denies Memory: Intact Recent;Intact Remote Mood & Affect Observed/Reported: Depressed Range of Affect: Flat Sleep: Difficulty Sleeping Appetite: Lack of Appetite Energy: Lack of Energy Anxiety/Trauma: Nightmares;Restlessness;Unable to Control Worry Non-Suicidal Self Injury Non-Suicidal Self Injury: Patient Denies Suicidal Ideation Suicidal Ideation: Patient Denies Homicidal Ideation Homicidal Ideation: Patient Denies Non-Lethal Harm to Others or Damage/Destruction to Property Harm to Others or Damage/Destruction of Property: Patient Denies Access To Weapons Access To Weapons: No Medical Conditions Medical Conditions Increasing Risks: Pain Conditions;Other: See Comment CHEMICAL DEPENDENCY Substance Use: Yes Referral for Substance Abuse Services: No Toxicology Screen Results: Positive Positive Result: Alcohol;Marijuana Substances Used: Alcohol;Marijuana ACTIVITY Activities of Daily Living: Independent Mobility: Wheelchair Continence: Continent MENTAL HEALTH SERVICES: Current Mental Health Providers: N?A Agency/Organization: N/A Phone Number: N/A Inpatient Mental Health Treatment History: None Outpatient Mental Health Treatment History: N/A INTERVENTIONS Sources of Information: Patient;Epic;ED Staff Patient Assessed by Intake via: Face to Face Coordination of care with: ED RN;ED LIP Interventions: Therapeutic Interventions Therapeutic Interventions: Crisis Assessment DISPOSITION & PLAN: Patient Assessed by Intake via: Face to Face Patient stated goals: Coordination of Care with: ED RN;ED LIP Assessment/Impressions: Plan: Await medical clearance Goals/Objectives: Total time spent (minutes) in Supportive Care for this patient: 45 MEDICAL CLEARANCE Medical Clearance Not Obtained Due To: Medical Admission Reviewed medical history with physician: Yes Reviewed abnormal labs with physician: Yes Discussed case with Dr. Rascon who states that José Manuel Ashton is going medical. Is Patient Less Than 18 Years of Age or have a Guardian/Healthcare Power of Entertainer & Comic?: No Disposition Date: 01/17/22 Disposition Time: 2319 SIGNATURE: OSCAR Pandya PATIENT NAME: José Manuel Ashton DATE: January 17, 2022 TIME: 8:50 PM documented in this encounterVan [facility]10[facility] NoteHNO ID: [id number] Author: Billy Cody MD Service: ? Author Type: Physician Type: Progress Notes Filed: 01/17/2022 3:36 PM Note Text: [facility] [place] NEPHROLOGY CONSULT NOTE Patient Name: José Manuel Ashton Consultation requested by Belgica Vega DO, for an opinion regarding: CKD My final recommendations will be communicated back to the requesting physician by way of shared Medical record or letter to requesting physician via US mail. 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, depression, BRANDAN, uncontrolled DM-2 c/b NPDR and nephropathy; BPPV, OA, chronic low back pain with radiculopathy and neurogenic claudication; hyponatremia, HLD, uncontrolled HTN, glaucoma suspect, diverticulosis, family h/o colon cancer (his brother from it), T1 invasive rectal adenocarcinoma arising in a tubulovillous adenoma s/p polypectomy on 07/24/20; s/p transanal excision of rectal tumor on 11/24/20; s/p colonic tubular adenoma polypectomy 07/24/20, poor adherence with medications, ulcerated HSV esophagitis 04/19/21; multiple episodes of TARYN, and CKD stage 3a, who was referred for evaluation of CKD. Duration (when): since 2020 Location (where): the kidneys Severity (ex: creat 4.5, BP 200/100): serum creatinine up to 1.47 on 09/20/21 (best serum creatinine on record 0.86 on 02/17/20) Quality (ex: sharp, dull): chronic Context (ex: activity at onset or related to condition): presumed secondary to uncontrolled D-2,uncontrolled HTN, and obstruction from BPH Timing (ex: continuous, intermittent): continuous Modifying factors (ex: medications, interventions): pantoprazole and lisinopril Associated signs AND symptoms (ex: edema, SOB): azotemia He doesn't take any medications because he "doesn't feel like taking any medications". He is having problems with chronic pain and lack of sleep. He states he stays up the whole night walking around in the house the whole night. He denies suicidal or homicidal ideation. He just smokes pot to calm himself down and it works. He avoids drinking alcohol because "it makes me mean so I avoid going down that route". He would like to get helped. He has a psychiatrist at [facility] at [place], [place]. 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 Ahmadi FAMILY HISTORY: FAMILY HISTORY Problem Relation Age of Onset other (Heart stroke) Mother other (Glaucoma lung cancer) Father Glaucoma Sister Glaucoma Brother SOCIAL HISTORY: Social History Tobacco Use Smoking status: Former Packs/day: 1.00 Years: 37.00 Pack years: 37.00 Types: Cigarettes Quit date: 04/03/2010 Years since quittin.8 Smokeless tobacco: Never Tobacco comments: Smokes [place] Vaping Use Vaping Use: Never used Substance Use Topics Alcohol use: Not Currently Drug use: Yes Types: Marijuana Comment: daily Single. No children. He lives with his brother and sister. (He moved back from [place]). 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 He smokes marijuana (2 to 3 joints a day). MEDICATIONS: tamsulosin (FLOMAX) 0.4 mg Take 1 capsule by mouth once daily. rosuvastatin (CRESTOR) 5 mg tablet Take 1 tablet by mouth daily at bedtime. dulaglutide (TRULICITY) 1.5 mg/0.5 mL pen injector Inject 1.5 mg subcutaneously one time a week. pioglitazone (ACTOS) 45 mg tablet Take 1 tablet by mouth once daily. metFORMIN ER (GLUCOPHAGE XR) 500 mg 24 hr tablet Two tablets before breakfast and before supper Insulin [place], Disposable, (COMFORT EZ PEN NEEDLES) 29 gauge x 1/2" 1 Each once daily. insulin glargine (LANTUS SOLOSTAR, BASAGLAR KWIKPEN) 100 unit/mL (3 mL) Inject 26 Units subcutaneously daily at bedtime. buPROPion SR (WELLBUTRIN SR) 100 mg 12 hr tablet Take 1 tablet by mouth once daily. (more content not included)...[id number] Instructions* Patient Instructions* Billy Cody MD - 01/17/2022 3:14 PM EDT Advised to go to the ER for evaluation of depression. documented in this encounterVan [facility] History of Present illness Narrative* Billy Cody MD - 01/17/2022 3:00 PM EDT Images from the original note were not included. [facility] [place] NEPHROLOGY CONSULT NOTE Patient Name: José Manuel Ashton Consultation requested by Belgica Vega DO, for an opinion regarding: CKD My final recommendations will be communicated back to the requesting physician by way of shared Medical record or letter to requesting physician via US mail. 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, depression, BRANDAN, uncontrolled DM-2 c/b NPDR and nephropathy; BPPV, OA, chronic low back pain with radiculopathy and neurogenic claudication; hyponatremia, HLD, uncontrolled HTN, glaucoma suspect, diverticulosis, family h/o colon cancer (his brother from it), T1 invasive rectal adenocarcinoma arising in a tubulovillous adenoma s/p polypectomy on 07/24/20; s/p transanal excision of rectal tumor on 11/24/20; s/p colonic tubular adenoma polypectomy 07/24/20, poor adherence with medications, ulcerated HSV esophagitis 04/19/21; multiple episodes of TARYN, and CKD stage 3a, who was referred for evaluationof CKD. Duration (when): since 2020 Location (where): the kidneys Severity (ex: creat 4.5, BP 200/100): serum creatinine up to 1.47 on 09/20/21 (best serum creatinineon record 0.86 on 02/17/20) Quality (ex: sharp, dull): chronic Context (ex: activity at onset or related to condition): presumed secondary to uncontrolled D-2,uncontrolled HTN, and obstruction from BPH Timing (ex: continuous, intermittent): continuous Modifying factors (ex: medications, interventions): pantoprazole and lisinopril Associated signs & symptoms (ex: edema, SOB): azotemia He doesn't take any medications because he "doesn't feel like taking any medications". He is havingproblems with chronic pain and lack of sleep. He states he stays up the whole night walking around in the house the whole night. He denies suicidal or homicidal ideation. He just smokes pot to calm himself down and it works. He avoids drinking alcohol because "it makes me mean so I avoid going downthat route". He would like to get helped. He has a psychiatrist at [facility] at [place], [place]. 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 Ahmadi FAMILY HISTORY: FAMILY HISTORY Problem Relation Age of Onset other (Heart stroke) Mother other (Glaucoma lung cancer) Father Glaucoma Sister Glaucoma Brother SOCIAL HISTORY: Social History Tobacco Use Smoking status: Former Packs/day: 1.00 Years: 37.00 Pack years: 37.00 Types: Cigarettes Quit date: 04/03/2010 Years since quittin.8 Smokeless tobacco: Never Tobacco comments: Smokes [place] Vaping Use Vaping Use: Never used Substance Use Topics Alcohol use: Not Currently Drug use: Yes Types: Marijuana Comment: daily Single. No children. He lives with his brother and sister. (He moved back from [place]). 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 He smokes marijuana (2 to 3 joints a day). MEDICATIONS: tamsulosin (FLOMAX) 0.4 mg Take 1 capsule by mouth once daily. rosuvastatin (CRESTOR) 5 mg tablet Take 1 tablet by mouth daily at bedtime. dulaglutide (TRULICITY) 1.5 mg/0.5 mL pen injector Inject 1.5 mg subcutaneously one time a week. pioglitazone (ACTOS) 45 mg tablet Take 1 tablet by mouth once daily. metFORMIN ER (GLUCOPHAGE XR) 500 mg 24 hr tablet Two tablets before breakfast and before supper Insulin [place], Disposable, (COMFORT EZ PEN NEEDLES) 29 gauge x 1/2" 1 Each once daily. insulin glargine (LANTUS SOLOSTAR, BASAGLAR KWIKPEN) 100 unit/mL (3 mL) Inject 26 Units subcutaneously daily at bedtime. buPROPion SR (WELLBUTRIN SR) 100 mg 12 hr tablet Take 1 tablet by mouth once daily. pantoprazole DR (PROTONIX) 40 mg tablet Take 1 tablet by mouth twice daily before meals (0600/1600). blood sugar diagnostic (BLOOD GLUCOSE TEST) test strip 3x/day iv contrast (will be provided with radiology test) MRI Pelvis Inject, intravenously, once for 1 dose. No IV access, insert saline lock prior to the beginning of sedation, infusion, injection of imaging exam. Discontinue saline lock post exam. If Pt has a central line or IVAD, may access for administration according to line specific nursing protocol. Once exam is complete flush line and de-access according to line specific nursing protocol in the MR contrast administration guidelines link. lidocaine (XYLOCAINE) 2 % jelly Apply 1 application to affected area three times daily. albuterol HFA (PROVENTIL HFA, VENTOLIN HFA) 90 mcg/actuation inhaler Inhale 2 Puffs as instructed every 4 hours as needed for wheezing/shortness of breath. gabapentin (NEURONTIN) 300 mg capsule Take 1 capsule by mouth three times daily for 90 days. (Patient not taking: Reported on 10/13/2021) Blood-Glucose Meter monitoring kit For monitoring sugars 3x/day (patient on insulin) Lancets lancets Use as instructed 3x/day alcohol swabs (ALCOHOL PREP PADS) Apply 1 application to affected area as directed. ALLERGIES: ALLERGIES Allergen Reactions Penicillins Unknown Pt states he thinks he had a reaction as a child ROS: PAIN ASSESSMENT: Positive for chronic low back pain and chronic left hip pain. He takes medical marijuana. No NSAIDs CONSTITUTIONAL: Positive for morbid obesity and weight gain. No weight loss, malaise, fevers or chills. No falls. He walks with a cane HEENT: Positive for dizziness and blurry vision. No headaches, blurry vision, hearing impairment, epistaxis or sore throat NECK: no neck pain, mass or stiffness RESPIRATORY: Negative for cough, hemoptysis, wheezing or shortness of breath CARDIOVASCULAR: Negative for chest pain, orthopnea, palpitations, or edema GASTROINTESTINAL: Negative for nausea, vomiting, and diarrhea. No hematemesis, hematochezia, melenaor constipation GENITOURINARY: Negative for dysuria or hematuria SKIN: Negative for lesions, rash, and itching. NEURO: No history of headaches, aphasia, dysarthria, syncope, paralysis, seizures or tremors PSYCH: He is depressed and feels overwhelmed with all of his medical problems. He sates "he doesn'tknow what to do". He doesn't take any medications because he "doesn't feel like taking any medications". He is having problems with chronic pain and lack of sleep. He states he stays up the whole night walking around in the house the whole night. He denies suicidal or homicidal ideation. He just smo kes pot to calm himself down and it works. He avoids drinking alcohol because "it makes me mean so I avoid going down that route". He would like to get helped MUSCULOSKELETAL: No joint swelling or back pain ENDOCRINE: No polydipsia or polyphagia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 checking his bloodsugars. States that the machine "pisses" him off, especially when his sugars are high. He is tryingto watch what he eats. Encouraged pt to at least check his sugars daily and keep a log until he sees his PCP next wk - agreeable. Pt states that he is "back on' hs meds for the most part. Upon clarification, pt sometimes "just doesn't want to" take his pills because he doesn't like pills. Discussedthe importance of taking his meds as ordered. At this time, pt his taking his meds, including Psychand DM. No needs for PCC today. Will call if needs arise. Appointment note updated to include depression and meds. Goals: Active Goals - Current status as of 12/28/2021 at 11:56 AM Most Recent Address all appropriate HM and disease care gaps No change (12/28/2021) Annual BMP On track (12/28/2021) Last 09/02/21 Annual foot exam On track (09/06/2021) Annual microalbumin On track (09/06/2021) Annual retina exam On track (12/03/2021) Blood Pressure < 130/80 160/94 (11/05/2021) Confirm medication adherence of all prescribed medications and uses them correctly No change (03/24/2021) HBA1C drawn quarterly On track (12/28/2021) Hemoglobin A1C < 7 11.6 (07/05/2021) Improve your coping skills No change (10/28/2020) LDL at or below 100 mg/dL or on a high statin No change (09/06/2021) Last 07/05/21 LDL = 160 (No meds) Reduce fat intake On track (05/25/2021) Reduce sugar intake On track (05/25/2021) Tobacco cessation Understands and follows a low salt diet No change (09/23/2020) Understands and follows DASH diet Weight mgmt/activity No change (09/23/2020) 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 Signature Jen Bergman RN December 28, 2021 documented in this encounterVan Wert [facility]09-19-2022 NoteHNO ID: [id number] Author: Billy Cody MD Service: ? Author Type: Physician Type: Progress Notes Filed: 12/20/2021 2:10 PM Note Text: Summary: Abstract Abstract: 61 y/o male with h/o obesity class 2 (BMI 38.6), fatty liver, marijuana use, MEKHI not on treatment, vitamin D deficiency, tobacco use in remission, duodenal polyp, BPH, GERD, 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, depression, BRANDAN, uncontrolled DM-2 c/b NPDR and nephropathy; BPPV, OA, chronic low back pain with radiculopathy and neurogenic claudication; hyponatremia, HLD, uncontrolled HTN, glaucoma suspect, diverticulosis, family h/o colon cancer (his brother from it), T1 invasive rectal adenocarcinoma arising in a tubulovillous adenoma s/p polypectomy on 07/24/20; s/p transanal excision of rectum 11/24/20; s/p colonic tubular adenoma polypectomy 07/24/20, poor adherence with medications, 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 Duration (when): since 2020 Location (where): the kidneys Severity (ex: creat 4.5, BP 200/100): serum creatinine up to 1.47 on 09/20/21 (best serum creatinine on record 0.86 on 02/17/20) Quality (ex: sharp, dull): chronic Context (ex: activity at onset or related to condition): presumed secondary to uncontrolled D-2,uncontrolled HTN, and obstruction from BPH Timing (ex: continuous, intermittent): continuous Modifying factors (ex: medications, interventions): pantoprazole and lisinopril Associated signs AND symptoms (ex: edema, SOB): azotemia [facility] [place] Billy Leon MD Staff Nephrology and Hypertension [facility] Pager# [phone] Clinic Union [phone] History of Present illness Narrative* Billy Cody MD - 12/20/2021 2:08 PM EDTSummary: Abstract Images from the original note were not included. Abstract: 61 y/o male with h/o obesity class 2 (BMI 38.6), fatty liver, marijuana use, MEKHI not on treatment, vitamin D deficiency, tobacco use in remission, duodenal polyp, BPH, GERD, 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, depression, BRANDAN, uncontrolled DM-2 c/b NPDR and nephropathy; BPPV, OA, chronic low back pain with radiculopathy and neurogenic claudication; hyponatremia, HLD, uncontrolled HTN, glaucoma suspect, diverticulosis, family h/o colon cancer (his brother from it), T1 invasive rectal adenocarcinoma arising in a tubulovillous adenoma s/p polypectomy on 07/24/20; s/p transanal excision of rectum 11/24/20; s/p colonic tubular adenoma polypectomy 07/24/20, poor adherence with medications, 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 Duration (when): since 2020 Location (where): the kidneys Severity (ex: creat 4.5, BP 200/100): serum creatinine up to 1.47 on 09/20/21 (best serum creatinineon record 0.86 on 02/17/20) Quality (ex: sharp, dull): chronic Context (ex: activity at onset or related to condition): presumed secondary to uncontrolled D-2,uncontrolled HTN, and obstruction from BPH Timing (ex: continuous, intermittent): continuous Modifying factors (ex: medications, interventions): pantoprazole and lisinopril Associated signs & symptoms (ex: edema, SOB): azotemia [facility] [place] Billy Leon MD Staff Nephrology and Hypertension [facility] Pager# [phone] documented in this encounterVan Wert [facility]09-02-2022 History of Present illness Narrative* Jen Bergman RN - 12/03/2021 3:33 PM EDT PRIMARY CARE COORDINATION FOLLOW-UP NOTE Patient identified by name and date of . NO Summary: PCC attempted routine f/u call - not able to leave a msg. Goals: Active Goals - Current status as of 12/03/2021 at 3:34 PM Most Recent Address all appropriate HM and disease care gaps No change (12/03/2021) Annual BMP On track (12/03/2021) Last 09/02/21 Annual foot exam On track (09/06/2021) Annual microalbumin On track (09/06/2021) Annual retina exam On track (12/03/2021) Blood Pressure < 130/80 160/94 (11/05/2021) Confirm medication adherence of all prescribed medications and uses them correctly No change (03/24/2021) HBA1C drawn quarterly On track (12/03/2021) Hemoglobin A1C < 7 11.6 (07/05/2021) Improve your coping skills No change (10/28/2020) LDL at or below 100 mg/dL or on a high statin No change (09/06/2021) Last 07/05/21 LDL = 160 (No meds) Reduce fat intake On track (05/25/2021) Reduce sugar intake On track (05/25/2021) Tobacco cessation Understands and follows a low salt diet No change (09/23/2020) Understands and follows DASH diet Weight mgmt/activity No change (09/23/2020) 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 Signature Jen Bergman RN December 03, 2021 documented in this encounterVan Wert [facility]08-30-2022 Miscellaneous Notes* Telephone Encounter - Maria D Pepper - 11/30/2021 9:32 AM EDT Called patient on 11/30/21 to schedule cataract surgery, right eye with Dr. Gannon in March 2022. Unable to leave a message - voicemail box full. Previous attempts to reach patient occurred on 11/09/21, 11/10/21, 11/24/21. Sending letter to patient to call our office to let us know if he's still interested in scheduling cataract surgery. documented in this encounterVan Wert [facility] Hospital08-22-2022 Miscellaneous Notes* Telephone Encounter - Yarely Teixeira Pss - 11/22/2021 8:50 AM EDT Faxed letter to Belgica Vega DO [address] [facility] [phone] [address] documented in this encounterVan Wert County Hospital08-09-2022 Miscellaneous Notes* Telephone Encounter - Maria D Pepper - 11/09/2021 2:40 PM EDT Attempted to call patient to schedule cataract surgery, right eye with Dr. Gannon. Per staff message from Dr. Gannon, she recommended scheduling out about 3 months (in February) to give patientan opportunity to get his sugars under control. No answer, no machine. Will try again at a later date. documented in this encounterVan Wert [facility]08-05-2022 History of Present illness Narrative* Belgica Vega DO - 11/05/2021 4:10 PM EDT Images from the original note were not included. Belgica Vega [address] [place] [address] Visit Date: November 05, 2021 Mr.Jim Najma Ashton Date of : 1960 MRN/E #: [id number] History of Present Illness José Manuel Ashton is a 60 year old male. Patient presents to the clinic today for follow-up hypertension, diabetes HPI Patient has history of hypertension and lower extremity edema.. BP today 150/95. BP during last office visit was 143/84 during September 2021.Pt states just came back from eye dr. Pt wearing sunglasses. Patient admits he does eat some salty foods. Recheck BP today is 160/94. Patient does have history of diabetes and noncompliance with diabetic medications. Patient does have history of DKA from medication noncompliance. Patient sees endocrinology. During last office visitpatient indicated he had been taking metformin but not Trulicity Lantus or insulin injections. Patient does not check his blood sugar at home. Endocrinology is prescribing Glucophage XR 500 mg, 2 tabs before breakfast.Patient's A1c was 12.5 on September 20, 2021.Pt states is taking meds. Will forgot daily shot, will remember that 3-4 times per week.. , sometimes only takes 2 per week. Taking weekly shot and pills.. Patient's A1c was 11.5 on October 05 blood sugar was 184.Pt hasnt checked his BS. States has to get his numbers down to 8 in order to do this eye surgery. They want to do cataract surgery both eyes. States got to get numbers down to 8, surgery scheduled 02/2022.. Patient diagnosedas glaucoma suspect bilaterally, with mild nonproliferative DR bilaterally with macular edema and nuclear senile cataracts bilaterally. Patient is being prescribed Lantus 26 units, Trulicity 1.5 weekly, Actos 45 mg. Patient had been tolerating medications well. Pt does do trulicity once a week, thinks forgot last week. Pt indicates hasnt drank alcohol x 40 yrs. Started drinking and smoking age 12. Patient does have history of microalbuminuria.. Albumin/creatinine ratio was 1237 during July 2021. Patient has history of vitamin D deficiency. Vitamin D was 24.2 during September 2021 Patient has history of hyperlipidemia. Cholesterol was 286 during September 2021 patient does eat cheeseon a daily basis but had cut back on his consumption. Patient had not been eating as much nuts or peanut butter. Patient was started on Crestor 5 mg during last office visit. Pt admits hasnt picked up that med. Patient does have history of elevated serum creatinine. Creatinine was 1.47 during September 2021. Patient was referred to nephrology during last office visit. Pt indicates having troubles scheduling, told by corporate receptionist not sure what kind of kidney dr to schedule him with. Pt trying to drink more water. Patient has history of elevated alkaline phosphatase it was 143 during July 2021 alkaline phosphatase was 109 during September 2021 Patient has history of hyponatremia. Sodium was 134 during July 2021, it was 138 during September 2021. Patient does have history of hyperkalemia. Potassium was 4.7 during September 2021, Patient does have history of MEKHI. It was recommended patient schedule Pap titration previously. Pt hasnt done that yet. Pap titration is pending from November 20, 2020. Pt never got a cpap. PAP titration was ordered during last office visit Patient does have history of Will's esophagitis and malignant neoplasm of rectum.Patient does have history of chronic nausea, Will's esophagitis and hyperplastic polyp in the duodenum. Patient also has history of invasive adenocarcinoma of the rectum.Patient is status post rectal surgery November 24, 2020. Patient does see general surgeon and oncologist. Patient did have pelvic MRI during August2021 which is unremarkable. Patient saw general surgeon during October 2021. Patient has history of left groin pain and was referred to PT by general surgeon.Pt states was toldby surgeon nothing on MRI to account for groin pain. Pt states PT in the past wouldn't do PT. Patient had complained of diarrhea during last office visit. It was recommended he discontinue Cleocin. Stool cultures were ordered and have not been completed.D stopped. Patient's BMI is. 38.6. Patient has been gaining weight. Patient has history of BPH and hematuria. patient is on Flomax from urology. Patient saw urologist last month during October 2021. PSA pending Patient does see psychiatry for anxiety and depression.Patient is on Wellbutrin SR 100 mg.. Patient does have history of marijuana use. Patient smokes about 2 joints per day. 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 Ahmadi Social History Tobacco Use Smoking status: Former Smoker Packs/day: 1.00 Years: 37.00 Pack years: 37.00 Types: Cigarettes Quit date: 04/03/2010 Years since quittin.6 Smokeless tobacco: Never Used Tobacco comment: Smokes [place] Vaping Use Vaping Use: Never used Substance Use Topics Alcohol use: Not Currently Drug use: Yes Types: Marijuana Comment: daily ALLERGIES Allergen Reactions Penicillins Unknown Pt states he thinks he had a reaction as a child Family History Problem Relation Age of Onset other (Heart stroke) Mother other (Glaucoma lung cancer) Father Glaucoma Sister Glaucoma Brother Current Outpatient Medications Medication Sig Dispense Refill lisinopril (ZESTRIL, PRINIVIL) 20 mg tablet Take 1 tablet by mouth once daily. 90 tablet 1 tamsulosin (FLOMAX) 0.4 mg Take 1 capsule by mouth once daily. 90 capsule 5 rosuvastatin (CRESTOR) 5 mg tablet Take 1 tablet by mouth daily at bedtime. 30 tablet 1 dulaglutide (TRULICITY) 1.5 mg/0.5 mL pen injector Inject 1.5 mg subcutaneously one time a week. 4 Each 1 pioglitazone (ACTOS) 45 mg tablet Take 1 tablet by mouth once daily. 90 tablet 3 metFORMIN ER (GLUCOPHAGE XR) 500 mg 24 hr tablet Two tablets before breakfast and before supper 120tablet 1 Insulin [place], Disposable, (COMFORT EZ PEN NEEDLES) 29 gauge x 1/2" 1 Each once daily. 100 Each 3 insulin glargine (LANTUS SOLOSTAR, BASAGLAR KWIKPEN) 100 unit/mL (3 mL) Inject 26 Units subcutaneously daily at bedtime. 6 Pen 1 blood sugar diagnostic (BLOOD GLUCOSE TEST) test strip 3x/day 100 Strip 11 iv contrast (will be provided with radiology test) MRI Pelvis Inject, intravenously, once for 1 dose. No IV access, insert saline lock prior to the beginning of sedation, infusion, injection of imaging exam. Discontinue saline lock post exam. If Pt has a central line or IVAD, may access for administration according to line specific nursing protocol. Once exam is complete flush line and de-access according to line specific nursing protocol in the MR contrast administration guidelines link. 1 Each 0 lidocaine (XYLOCAINE) 2 % jelly Apply 1 application to affected area three times daily. 30 mL 2 Blood-Glucose Meter monitoring kit For monitoring sugars 3x/day (patient on insulin) 1 Each 1 Lancets lancets Use as instructed 3x/day 100 Each 11 alcohol swabs (ALCOHOL PREP PADS) Apply 1 application to affected area as directed. 100 Each 3 buPROPion SR (WELLBUTRIN SR) 100 mg 12 hr tablet Take 1 tablet by mouth once daily. [address] (PROTONIX) 40 mg tablet Take 1 tablet by mouth twice daily before meals (0600/1600). 60 tablet 0 albuterol HFA (PROVENTIL HFA, VENTOLIN HFA) 90 mcg/actuation inhaler Inhale 2 Puffs as instructed every 4 hours as needed for wheezing/shortness of breath. 1 Each 0 gabapentin (NEURONTIN) 300 mg capsule Take 1 capsule by mouth three times daily for 90 days. (Patient not taking: Reported on 10/13/2021) 90 capsule 2 Current Facility-Administered Medications Medication Dose Route Frequency Provider Last Rate Last Admin tropicamide 1 % 1 Drop (MYDRIACYL) 1 Drop BOTH EYES As Directed Renetta Gannon MD 1 Drop at 11/05/21 1300 PHENYLephrine 2.5 % 1 Drop (AK-DILATE, MARILYN-SYNEPHRINE) 1 Drop BOTH EYES As Directed Renetta Gannon MD 1 Drop at 11/05/21 1300 fluorescein-benoxinate 0.25-0.4 % 1 Drop (FLURESS) 1 Drop BOTH EYES As Directed Renetta Gannon MD 1 Drop at 11/05/21 1300 proparacaine 0.5 % 1 Drop (ALCAINE) 1 Drop BOTH EYES As Directed Renetta Gannon MD Review of Systems Constitutional: Negative for chills, diaphoresis, fever, malaise/fatigue and weight loss. Respiratory: Negative for shortness of breath. Cardiovascular: Negative for chest pain and leg swelling. Gastrointestinal: Negative for abdominal pain, diarrhea, nausea and vomiting. Genitourinary: Negative for dysuria. Musculoskeletal: Negative for joint pain. Skin: Negative for rash. Neurological: Negative for dizziness and headaches. Endo/Heme/Allergies: Negative for environmental allergies. Psychiatric/Behavioral: Negative for depression. BP 160/94 Pulse 85 Ht 5' 10" (1.78m) Wt 269 lb (122.0kg) BMI 38.60 kg/(m^2). Physical Exam HENT: Head: Normocephalic and atraumatic. Right Ear: Tympanic membrane, ear canal and external ear normal. Left Ear: Tympanic membrane, ear canal and external ear normal. Nose: Nose normal. Mouth/Throat: Pharynx: Uvula midline. Eyes: General: Lids are normal. Conjunctiva/sclera: Conjunctivae normal. Pupils: Pupils are equal, round, and reactive to light. Neck: Trachea: Trachea normal. Cardiovascular: Rate and Rhythm: Normal rate and regular rhythm. Pulses: Normal pulses. Heart sounds: Normal heart sounds. Pulmonary: Effort: Pulmonary effort is normal. Breath sounds: Normal breath sounds. Abdominal: General: Bowel sounds are normal. Palpations: Abdomen is soft. Tenderness: There is no abdominal tenderness. There is no guarding. Musculoskeletal: Cervical back: Neck supple. Right lower le+ Pitting Edema present. Left lower le+ Pitting Edema present. Lymphadenopathy: Cervical: No cervical adenopathy. Skin: General: Skin is warm and dry. Neurological: Mental Status: He is alert and oriented to person, place, and time. Psychiatric: Mood and Affect: Affect normal. No visits with results within 1 Day(s) from this visit. Latest known visit with results is: Office Visit on 10/05/2021 Component Date Value Ref Range Status Glucose, Point of Care 10/05/2021 184 (A) 74 - 99 mg/dL Final Comment: Location:[facility], [address] [place] [address] The Accu-Chek Inform II glucose meter has not been approved for testing on patients receiving intensive medical intervention or therapy and results from this point of care glucose test should not be used for patient management decisions in these cases. Inaccurate results may also occur from other interfering factors, such as N-acetylcysteine (blood concentrations of greater than 5mg/dL), galactose, extremes of hematocrit (<10 or >65), or high doses of ascorbic acid (vitamin C) greater than 3mg/dL. Consider alternate testing mechanisms (e.g. core lab, blood gas instrument) in the above situations. Hemoglobin A1C (POCT) 10/05/2021 11.5 (A) 4.2 - 5.6 % Final Comment: Location:[facility], [address] [place] [address], [facility] Point of care (POC) Hemoglobin A1c (HGBA1C) testing is intended to assess glucose control and provide a management tool for patients known to have diabetes and their healthcare providers. Target HGBA1C levels may depend on specific clinical circumstances. POC HGBA1C is not intended for use as a diagnostic or screening test; laboratory-based testing should be used for diagnostic purposes. The following information is supplemental and may not be applicable to specific diabetes management situations: The POC device reliability engineer provides a normal range of 4.2% to 6.5% for the HGBA1C POC test. However, the [place] [employer] guidelines indicate that patients with HGBA1C in the range of 5.7% to 6.4% are at increased risk for development of diabetes and that intervention by lifestyle modification may be beneficial. A HGBA1C level greater than or equal to 6.5% is considered diagnostic of diabetes, pending confirmatory testing. Use of HGBA1C testing to evaluate glucose control may not be appropriate for patients with hemoglobin variants or other conditions (e.g. anemia) that alter red blood cell lifespan. Procedure Notes: No notes on file New medication(s) prescribed today: None. Counseling completed in adopting health behaviors such as avoiding excessive alcohol use, avoid tobacco use, improve nutrition, and engage in physical activities. Copy of written care plan, clinical summary, treatment plan, new medications, goals, and self management requirements were given to patient. Assessment/Plan: ASSESSMENT/PLAN: 1. Hypertension, essential - ICD9: 401.9, ICD10: I10 (primary diagnosis) - suboptimal control - factors affecting control of BP include being overweight, lack of exercise and sleep apnea. - Continue current medication(s) - Recommended regular aerobic exercise. - Recommend home blood pressure monitoring, to bring results in on next visit - Goal of BP <130/80 - LISINOPRIL 20 MG TABLET 2. Bilateral leg edema - ICD9: 782.3, ICD10: R60.0 It was recommended that patient decrease sodium in the diet, drink plenty of non-caffeinated fluids, and elevate their lower extremities while seated. 3. Diabetes mellitus due to underlying condition, uncontrolled, with hyperglycemia (HCC) - ICD9: 249.81, 790.29, ICD10: E08.65 A1c 11.3 BS 330 4. H/O medication noncompliance - ICD9: V15.81, ICD10: Z91.14 5. Elevated serum creatinine - ICD9: 790.99, ICD10: R79.89 - BASIC METABOLIC PNL Follow-up with nephrology, patient given new phone numbers today to call 6. Microalbuminuria - ICD9: 791.0, ICD10: R80.9 - ALBUMIN/CREAT RATIO RND UR 7. Hyponatremia - ICD9: 276.1, ICD10: E87.1 - BASIC METABOLIC PNL 8. Vitamin D deficiency - ICD9: 268.9, ICD10: E55.9 - VITAMIN D 25 HYDROXY 9. Mixed hyperlipidemia - ICD9: 272.2, ICD10: E78.2 - to be determined upon return of lab results - Encouraged following a low fat, low cholesterol diet. - Discussed the benefits of regular aerobic exercise and weight loss. - LIPID PANEL BASIC Encourage patient to start Crestor 5 mg 10. MEKHI (obstructive sleep apnea) - ICD9: 327.23, ICD10: G47.33 Pap titration pending 11. 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 - ICD9: 530.85, ICD10: K22.719 Follow-up with general surgeon 12. Malignant neoplasm of rectum (HCC) - ICD9: 154.1, ICD10: C20 Follow-up with general surgeon 13. Benign prostatic hyperplasia, unspecified whether lower urinary tract symptoms present - ICD9: 600.00, ICD10: N40.0 Follow-up with urology 14. Anxiety and depression - ICD9: 300.00, 311, ICD10: F41.9, F32.A Follow-up with psychiatry 15. Marijuana use - ICD9: 305.20, ICD10: F12.90 16. Diarrhea, unspecified type - ICD9: 787.91, ICD10: R19.7 Resolved 17. Obesity, Class II, BMI 35-39.9 - ICD9: 278.00, ICD10: E66.9 Weight increasing - Behavioral intervention 18. Glaucoma suspect of both eyes - ICD9: 365.00, ICD10: H40.003 Follow-up with ophthalmology 19. 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 Nuclear senile cataract of both eyes - ICD9: 366.16, ICD10: H25.13 Patient indicates his A1c has to be 8 in order for him to have surgery of the eyes. Belgica Vega DO Return in about 1 month (around 12/06/2021) for Hypertension, Diabetes, Medication follow-up, Visit for re-check. If symptoms persist, worsen, or no improvement, patient is to call 911 and/or go to the nearest ED. [facility] History of Present illness Narrative* Renetta Gannon MD - 11/05/2021 2:13 PM EDT (E11.9436) Mild nonproliferative diabetic retinopathy of both eyes without macular edema associatedwith type 2 diabetes mellitus (HCC) (primary encounter diagnosis) Comment: Chronically poor control a1c (11-12) patient has trouble taking medications, does not liketo. Discussed that high sugars are a risk for infection in an elective, routine surgery like cataract extraction. Discussed that sugars need to improve in order to proceed safely with surgery - ideally less than 8but will consider if sugars are improving. Plan: The importance of good blood pressure and blood sugar control were emphasized. The nature of diabetic retinopathy was reviewed. Letter to PCP (H25.13) Cataract, nuclear sclerotic, both eyes Comment: Progressive, myopic shift and PSC. Cataract Presurgical Documentation Cataract: Right eye (OD) then Left eye (OS) Current Visual Acuity Right Eye Distance SC 20/80 Left Eye Distance SC 20/70 Best Corrected Vision Right Eye 20/60 Best Corrected Vision Left Eye 20/50 Glare Testing: N/A Visual Function: José Manuel Ashton states that the decline in vision from the cataract impedes his abilities as listed in the HPI, as well as other activities of daily living. José Manuel Forteravisoniya has confirmed that he is no longer able to function adequately on a day-to-day basis because of his current visual condition. Further, it is my medical opinion that the cataract is the primary cause, or at least a significantly contributory cause of his visual dysfunction. With uncomplicated cataract surgery and lens implantation, it is my expectation that his visual function and quality of life will improve, significantly. The risks, benefits, alternatives, personnel and complications of cataract surgery with lens implantation were discussed with José Manuel Ashton in detail. he appeared to understand and asked that I proceed with plans for surgery. Specific considerations reviewed particular to this case: -- guarded prognosis due to uncontrolled DM -- increased risk of infection The patient was offered a surgery/procedure at a [facility] facility. The surgeon/proceduralist and patient have discussed in detail the risk of exposure to and/or potential harm posed by the COVID-19 virus with having a surgery/procedure at this time versus the risk of delaying the surgery/pr ocedure. It is not possible to know either the risk of delaying the surgery or procedure or chance of getting an infection with perfect accuracy, but a joint decision was made between the patient andthe surgeon/proceduralist to proceed at this time with the scheduled surgery/procedure as indicatedon the consent form. Surgical plan: OD ---> OS AIM plano OU Toric standard Anesthesia: MAC/topical Contact lens wear: NO Previous refractive surgery: NO Preferred office: [place] Intracameral phenylephrine and vigamox Special notes sugars need to be improving, ideally a1c should be close to 8 or less Drops for Surgery: needs drop ordered Polytrim (clear/white) OR Ciprofloxacin (flores) 1 drop to OPERATIVE EYE 4 x daily (begin 2 days BEFORE surgery, including morning of surgery, and continue AFTER surgery) Prednisolone (pink or white) 1 drop to OPERATIVE EYE 4 x daily (begin 2 days BEFORE surgery, including morning of surgery, and continue AFTER surgery) Ketorolac (rasmussen) 1 drop to OPERATIVE EYE 4 x daily (begin 2 days BEFORE surgery, including morning of surgery, and continue AFTER surgery) Continue to use all glaucoma drops, if applicable, including the morning of surgery (H35.3131) Early dry stage nonexudative age-related macular degeneration of both eyes Comment: Mottling, no fluid Plan: Monitor Print Mrx - to get him by until surgery is scheduled RTC PEIOL OD then OS I have confirmed and edited as necessary the relevant ophthalmic history, ROS, and the neuro exam findings as obtained by others. I have seen and examined this patient. I have discussed the case and the management of this patient's care with the Resident/Fellow/Insulation Mechanic, if applicable. I also have reviewed and agree with the assessment and plan as stated above and agree with all of its relevant components. Renetta Gannon MD November 05, 2021 2:16 PM documented in this [facility] History of Present illness Narrative* Jen Bergman RN - 11/01/2021 3:54 PM EDT PRIMARY CARE COORDINATION FOLLOW-UP NOTE Patient identified by name and date of . NO Summary: PCC attempted routine f/u call to pt - not able to leave a msg. Goals: Active Goals - Current status as of 11/01/2021 at 3:56 PM Most Recent Address all appropriate HM and disease care gaps No change (11/01/2021) Annual BMP On track (09/06/2021) Last 09/02/21 Annual foot exam On track (09/06/2021) Annual microalbumin On track (09/06/2021) Annual retina exam No change (08/05/2021) Blood Pressure < 130/80 147/75 (10/13/2021) Confirm medication adherence of all prescribed medications and uses them correctly No change (03/24/2021) HBA1C drawn quarterly On track (11/01/2021) Hemoglobin A1C < 7 11.6 (07/05/2021) Improve your coping skills No change (10/28/2020) LDL at or below 100 mg/dL or on a high statin No change (09/06/2021) Last 07/05/21 LDL = 160 (No meds) Reduce fat intake On track (05/25/2021) Reduce sugar intake On track (05/25/2021) Tobacco cessation Understands and follows a low salt diet No change (09/23/2020) Understands and follows DASH diet Weight mgmt/activity No change (09/23/2020) 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 Signature Jen Bergman RN November 01, 2021 documented in this [facility] History of Present illness Narrative* Noé Kennedy MD - 10/27/2021 2:06 PM EDT ESTABLISHED PATIENT OFFICE VISIT HISTORY OF PRESENT ILLNESS Patient presents with: Prostate Problem: BPH José Manuel Ashton is a 60 year old male who presents for follow up regarding New problem- none LAB RESULTS Creatinine Date Value Ref Range Status 09/20/2021 1.47 (H) 0.73 - 1.22 mg/dL Final PSA (ng/mL) Date Value 07/05/2021 0.97 04/09/2021 1.90 02/17/2020 0.75 Color (no units) Date Value 04/12/2021 Yellow Clarity (no units) Date Value 04/12/2021 Slightly Cloudy Glucose, Urine (no units) Date Value 04/12/2021 2+ Bilirubin, Urine (no units) Date Value 04/12/2021 2+ Ketones, Urine (no units) Date Value 04/12/2021 3+ Specific [place], Ur (no units) Date Value 04/12/2021 1.025 Hemoglobin/Blood,Ur (no units) Date Value 04/12/2021 2+ pH, Urine (no units) Date Value 04/12/2021 5.0 Protein, Urine (no units) Date Value 04/12/2021 Comment: Visible blood causes falsely elevated results for analyte Protein. Due to this limitation, Protein will not be reported for patients whose urine contains visible blood. Urobilinogen (no units) Date Value 04/12/2021 0.2 EU/dL Nitrites (no units) Date Value 04/12/2021 Negative Leuk Esterase (no units) Date Value 04/12/2021 Negative ALLERGIES Allergen Reactions Penicillins Unknown Pt states he thinks he had a reaction as a child MEDICATIONS: rosuvastatin (CRESTOR) 5 mg tablet Take 1 tablet by mouth daily at bedtime. lisinopril (ZESTRIL, PRINIVIL) 20 mg tablet Take 1 tablet by mouth once daily. dulaglutide (TRULICITY) 1.5 mg/0.5 mL pen injector Inject 1.5 mg subcutaneously one time a week. pioglitazone (ACTOS) 45 mg tablet Take 1 tablet by mouth once daily. metFORMIN ER (GLUCOPHAGE XR) 500 mg 24 hr tablet Two tablets before breakfast and before supper Insulin [place], Disposable, (COMFORT EZ PEN NEEDLES) 29 gauge x 1/2" 1 Each once daily. insulin glargine (LANTUS SOLOSTAR, BASAGLAR KWIKPEN) 100 unit/mL (3 mL) Inject 26 Units subcutaneously daily at bedtime. buPROPion SR (WELLBUTRIN SR) 100 mg 12 hr tablet Take 1 tablet by mouth once daily. pantoprazole DR (PROTONIX) 40 mg tablet Take 1 tablet by mouth twice daily before meals (0600/1600). blood sugar diagnostic (BLOOD GLUCOSE TEST) test strip 3x/day lidocaine (XYLOCAINE) 2 % jelly Apply 1 application to affected area three times daily. Blood-Glucose Meter monitoring kit For monitoring sugars 3x/day (patient on insulin) Lancets lancets Use as instructed 3x/day alcohol swabs (ALCOHOL PREP PADS) Apply 1 application to affected area as directed. tamsulosin (FLOMAX) 0.4 mg Take 1 capsule by mouth once daily. iv contrast (will be provided with radiology test) MRI Pelvis Inject, intravenously, once for 1 dose. No IV access, insert saline lock prior to the beginning of sedation, infusion, injection of imaging exam. Discontinue saline lock post exam. If Pt has a central line or IVAD, may access for administration according to line specific nursing protocol. Once exam is complete flush line and de-access according to line specific nursing protocol in the MR contrast administration guidelines link. albuterol HFA (PROVENTIL HFA, VENTOLIN HFA) 90 mcg/actuation inhaler Inhale 2 Puffs as instructed every 4 hours as needed for wheezing/shortness of breath. gabapentin (NEURONTIN) 300 mg capsule Take 1 capsule by mouth three times daily for 90 days. REVIEW OF SYSTEMS GENERAL:no unintentional weight loss, malaise or fevers. NEUROLOGIC: pt is alert and oriented RESPIRATORY: Negative for cough, wheezing or shortness of breath. GASTROINTESTINAL: No nausea, vomiting, or diarrhea GENITOURINARY: Positive for BPH The remainder of the ROS was reviewed and is negative. 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 Detected on EMG Rectal cancer (HCC) Spinal stenosis of lumbar region with neurogenic claudication Vitamin D deficiency FAMILY HISTORY Problem Relation Age of Onset other (Heart stroke) Mother other (Glaucoma lung cancer) Father Glaucoma Sister Glaucoma Brother PAST SURGICAL HISTORY Procedure Laterality Date COLONOSCOPY GEN ANES 07/24/2020 Invasive Adenocarcinoma arising in a Tubulovillous Adenoma in the lower rectum, Tubular Adenomas, Fragment of Hyperplastic polyp, Internal Hemorrhoids EGD 07/24/2020 Will's Esophagus, Hyperplastic polyp in Duodenum EXCISION OF RECTAL TUMOR, TRANSANAL 11/24/2020 Dr. Ahmadi SOCIAL HISTORY Social History Tobacco Use Smoking status: Former Smoker Packs/day: 1.00 Years: 37.00 Pack years: 37.00 Types: Cigarettes Quit date: 04/03/2010 Years since quittin.5 Smokeless tobacco: Never Used Tobacco comment: Smokes [place] Vaping Use Vaping Use: Never used Substance Use Topics Alcohol use: Not Currently Drug use: Yes Types: Marijuana Comment: daily PHYSICAL EXAMINATION General appearance: Well appearing, alert, in no acute distress, well-hydrated, well nourished Psych Alert and oriented to person, place and time Respiratory: no wheezing or rhonchi Genitourinary: MALE EXAM: Exam NOT Indicated 03/22/2021 Office cysto neg (microhem) 03/15/2021 Cytology neg 02/19/2021 CT a/p neg 02/17/2020 PSA 0.75, no Fhx of Design Eng Assessment and Plan: Microhematuria- prior w/u neg. Pts "probem list" mentions h/o bladder cancer; pt says hes never hadand I have no record LUTS- IPSS 32, nocturia 4-5x, freq Q 2h, he says he drinks a lot of water, no hematuira/dysuria, hestopped the Flomax (says he forgets to take it) and not sure if things got worse after stopping - he will med try again, script given PSA ordered Medical Decision Making: Problems: Moderate: 2+ stable chronic illnesses Data: Unique test(s) ordered: 1 Risk: Moderate: Drug management Medical Decision Making Level: 4 - Moderate documented in this [facility]07-26-2022 Miscellaneous Notes* Telephone Encounter - Nancy Howard - 10/26/2021 11:55 AM EDTSummary: Referral Follow up Images from the original note were not included. called pt mailbox full mailed letter documented in this [facility]07-14-2022 Miscellaneous Notes* Telephone Encounter - Alissa Bryson - 10/14/2021 3:56 PM EDT Called pt to [facility] with [facility], mailbox is full, unable to lvm. Alissa Bryson documented in this [facility] Miscellaneous Notes* Telephone Encounter - Nancy Howard - 10/05/2021 4:12 PM EDTSummary: Referral Referral to Nephrology Confirmation number: [id number] [facility] [facility] History of Present illness Narrative* Belgica Vega DO - 10/05/2021 3:13 PM EDT Images from the original note were not included. Belgica Vega [address] [facility] [address] [place] [address] Visit Date: October 05, 2021 Mr.Jim Najma Ashton Date of : 1960 MRN/E #: [id number] History of Present Illness José Manuel Ashton is a 60 year old male. Patient presents to the clinic today for follow-up neck abscess HPI Patient has history of neck abscess. Patient was seen for hospital discharge follow-up for boil on neck last month. Abscess was I&D previously. During hospitalization patient was given IV clindamycin and blood cultures were obtained. Patient was prescribed doxycycline.. Patient had finished doxycycline 10-day course previously. Patient denies any redness swelling or drainage, fever or chills.Pt was rx cleocin during last visit. States ATB ripping him up, causing GI upset, got D. Has 2-3 day of ATB left. Pt states it has gone down in the neck, not stinging as bad, has drained some. Skin exam from 09/20/21 visit:Skin: General: Skin is warm and dry. Findings: Erythema, lesion and rash present. Rash is papular. Comments: Right posterior neck 5 x 4 cm erythematous papule, there is some clear vesicles, no active drainage there is no fluctuance in the center. States has had several episode of D. Will have 5-6 episodes every 2-3 days. Denies mucus, BRB or pus in stools. Patient does have history of diabetes and noncompliance with diabetic medications. Patient does have history of DKA from medication noncompliance. Patient sees endocrinology. During last office visitpatient indicated he had been taking metformin but not Trulicity Lantus or insulin injections. Patient does not check his blood sugar at home. Endocrinology is prescribing Glucophage Exar 500 mg, 2 tabs before breakfast.Patient's A1c was 12.5 on September 20, 2021.Pt states is taking meds. Will forgot daily shot, will remember that 3-4 times per week. Taking weekly shot and pills. Patient is being prescribed Lantus 26 units, Trulicity 1.5 weekly, Actos 45 mg. Patient had been tolerating medications well. Patient's dose of Trulicity was increased from 0.75-1.5 weekly. During last office visit patient indicated he takes diabetes meds about 3-4 times per week. Patient does have history of microalbuminuria.. Albumin/creatinine ratio was 1237 during July 2021. Patient has history of hypertension and lower extremity edema.. BP today 130/80. BP during last office visit was 143/84 during September 2021. Patient did have lab September 20, 2021. Vitamin D was 24.2., TSH 2.17. Cholesterol 286 triglyceride 316HDL 50 LDL 173, glucose 194, creatinine 1.47, A1c 12.5 Patient has history of vitamin D deficiency. Vitamin D was 18.3 during July 2021 Patient has history of hyperlipidemia. Cholesterol was 280 during July 2021. Dietary changes were recommended. Patient had admitted to eating cheese daily as well as eating nuts and peanut butter.Ptadmits still eats cheese, has cut back on it thought. Patient does have history of elevated serum creatinine. Creatinine was 1.27 on September 06, 2021 Patient has history of elevated alkaline phosphatase it was 143 during July 2021 Patient has history of hyponatremia. Sodium was 134 during July 2021 Patient does have history of hyperkalemia. Potassium was 4.7 during September 2021, it was 5.2 during July 2021 Patient has history of vitamin D deficiency. Vitamin D was 18.3 during July 2021. Patient does have history of MEKHI. It was recommended patient schedule Pap titration previously. Pt hasnt done that yet. Pap titration is pending from November 20, 2020. Pt never got a cpap. Pt states never got his toes checked. 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 Patient also has history of invasive adenocarcinoma of the rectum.Patient is status post rectal surgery November 24, 2020. Patient does see general surgeon and oncologist. Patient did have pelvic MRI during August2021 which is unremarkable. Per health maintenance patient is due for colorectal cancer screening. Pt to see Dr. Olivarez 10/13, he did surgery and colonoscopy previously. Patient's BMI is 37.31. Patient has been losing weight Patient has history of BPH and hematuria. patient is on Flomax from urology Patient does see psychiatry for anxiety and depression.Patient is on Wellbutrin SR 100 mg.. Patient does have history of marijuana use. Patient smokes about 2 joints per day. 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 Ahmadi Social History Tobacco Use Smoking status: Former Smoker Packs/day: 1.00 Years: 37.00 Pack years: 37.00 Types: Cigarettes Quit date: 04/03/2010 Years since quittin.5 Smokeless tobacco: Never Used Tobacco comment: Smokes [place] Vaping Use Vaping Use: Never used Substance Use Topics Alcohol use: Not Currently Drug use: Yes Types: Marijuana Comment: daily ALLERGIES Allergen Reactions Penicillins Unknown Pt states he thinks he had a reaction as a child Family History Problem Relation Age of Onset other (Heart stroke) Mother other (Glaucoma lung cancer) Father Glaucoma Sister Glaucoma Brother Current Outpatient Medications Medication Sig Dispense Refill lisinopril (ZESTRIL, PRINIVIL) 20 mg tablet Take 1 tablet by mouth once daily. 90 tablet 0 pioglitazone (ACTOS) 45 mg tablet Take 1 tablet by mouth once daily. 90 tablet 3 metFORMIN ER (GLUCOPHAGE XR) 500 mg 24 hr tablet Two tablets before breakfast and before supper 120tablet 1 Insulin [place], Disposable, (COMFORT EZ PEN NEEDLES) 29 gauge x 1/2" 1 Each once daily. 100 Each 3 insulin glargine (LANTUS SOLOSTAR, BASAGLAR KWIKPEN) 100 unit/mL (3 mL) Inject 26 Units subcutaneously daily at bedtime. [address] (PROTONIX) 40 mg tablet Take 1 tablet by mouth twice daily before meals (0600/1600). 60 tablet 0 blood sugar diagnostic (BLOOD GLUCOSE TEST) test strip 3x/day 100 Strip 11 tamsulosin (FLOMAX) 0.4 mg Take 1 capsule by mouth once daily. 90 capsule 5 iv contrast (will be provided with radiology test) MRI Pelvis Inject, intravenously, once for 1 dose. No IV access, insert saline lock prior to the beginning of sedation, infusion, injection of imaging exam. Discontinue saline lock post exam. If Pt has a central line or IVAD, may access for administration according to line specific nursing protocol. Once exam is complete flush line and de-access according to line specific nursing protocol in the MR contrast administration guidelines link. 1 Each 0 lidocaine (XYLOCAINE) 2 % jelly Apply 1 application to affected area three times daily. 30 mL 2 Blood-Glucose Meter monitoring kit For monitoring sugars 3x/day (patient on insulin) 1 Each 1 Lancets lancets Use as instructed 3x/day 100 Each 11 alcohol swabs (ALCOHOL PREP PADS) Apply 1 application to affected area as directed. 100 Each 3 rosuvastatin (CRESTOR) 5 mg tablet Take 1 tablet by mouth daily at bedtime. 30 tablet 1 dulaglutide (TRULICITY) 1.5 mg/0.5 mL pen injector Inject 1.5 mg subcutaneously one time a week. 4 Each 1 buPROPion SR (WELLBUTRIN SR) 100 mg 12 hr tablet Take 1 tablet by mouth once daily. 30 tablet 2 albuterol HFA (PROVENTIL HFA, VENTOLIN HFA) 90 mcg/actuation inhaler Inhale 2 Puffs as instructed every 4 hours as needed for wheezing/shortness of breath. 1 Each 0 gabapentin (NEURONTIN) 300 mg capsule Take 1 capsule by mouth three times daily for 90 days. 90 capsule 2 No current facility-administered medications for this visit. Review of Systems Constitutional: Positive for weight loss. Negative for chills, diaphoresis, fever and malaise/fatigue. HENT: Negative for sore throat. Eyes: Negative for redness. Respiratory: Negative for shortness of breath. Cardiovascular: Negative for chest pain and leg swelling. Gastrointestinal: Positive for diarrhea. Negative for abdominal pain, blood in stool, melena, nausea and vomiting. Genitourinary: Negative for dysuria. Musculoskeletal: Positive for myalgias. Negative for joint pain. Skin: Negative for rash. Neurological: Negative for dizziness and headaches. Endo/Heme/Allergies: Negative for environmental allergies. Psychiatric/Behavioral: Positive for depression. The patient is nervous/anxious. BP 130/80 Pulse 78 Temp 98.2 Ht 5' 10" (1.78m) Wt 260 lb (117.9kg) SpO2 99% BMI 37.31 kg/(m^2). Physical Exam HENT: Head: Normocephalic and atraumatic. Right Ear: Tympanic membrane, ear canal and external ear normal. Left Ear: Tympanic membrane, ear canal and external ear normal. Nose: Nose normal. Mouth/Throat: Pharynx: Uvula midline. Eyes: General: Lids are normal. Conjunctiva/sclera: Conjunctivae normal. Pupils: Pupils are equal, round, and reactive to light. Neck: Trachea: Trachea normal. Cardiovascular: Rate and Rhythm: Normal rate and regular rhythm. Pulses: Normal pulses. Heart sounds: Normal heart sounds. Pulmonary: Effort: Pulmonary effort is normal. Breath sounds: Normal breath sounds. Abdominal: General: Bowel sounds are normal. Palpations: Abdomen is soft. Tenderness: There is no abdominal tenderness. There is no guarding. Musculoskeletal: Cervical back: Neck supple. Right lower le+ Pitting Edema present. Left lower le+ Pitting Edema present. Lymphadenopathy: Cervical: No cervical adenopathy. Skin: General: Skin is warm and dry. Comments: No skin tenting observed Neurological: Mental Status: He is alert and oriented to person, place, and time. Psychiatric: Mood and Affect: Affect normal. No visits with results within 1 Day(s) from this visit. Latest known visit with results is: Appointment on 09/20/2021 Component Date Value Ref Range Status Protein, Total 09/20/2021 7.1 6.3 - 8.0 g/dL Final Albumin 09/20/2021 4.1 3.9 - 4.9 g/dL Final Calcium, Total 09/20/2021 9.5 8.5 - 10.2 mg/dL Final Bilirubin, Total 09/20/2021 0.4 0.2 - 1.3 mg/dL Final Alkaline Phosphatase 09/20/2021 109 38 - 113 U/L Final AST 09/20/2021 14 14 - 40 U/L Final ALT 09/20/2021 15 10 - 54 U/L Final Glucose 09/20/2021 194 (A) 74 - 99 mg/dL Final The [place] Diabetes Association (ADA) provides guidance for cutoff values for fasting glucose andrandom glucose. The ADA defines fasting as no caloric intake for at least 8 hours. Fasting plasma glucose results between 100 to 125 mg/dL indicate increased risk for diabetes (prediabetes). Fasting plasma glucose results greater than or equal to 126 mg/dL meet the criteria for diagnosis of diabetes. In the absence of unequivocal hyperglycemia, results should be confirmed by repeat testing. In a patient with classic symptoms of hyperglycemia or hyperglycemic crisis, random plasma glucose results greater than or equal to 200 mg/dL meet the criteria for diagnosis of diabetes. Reference: Standards of Medical Care in Diabetes 2016, [place] [employer] Association. Diabetes Care. 2016.39(Suppl 1). BUN 09/20/2021 31 (A) 9 - 24 mg/dL Final Creatinine 09/20/2021 1.47 (A) 0.73 - 1.22 mg/dL Final Sodium 09/20/2021 138 136 - 144 mmol/L Final Potassium 09/20/2021 4.7 3.7 - 5.1 mmol/L Final Chloride 09/20/2021 100 97 - 105 mmol/L Final CO2 09/20/2021 26 22 - 30 mmol/L Final Anion Gap 09/20/2021 12 9 - 18 mmol/L Final Estimated Glomerular Filtration Ra* 09/20/2021 54 (A) >=60 mL/min/1.73m Final Estimated Glomerular Filtration Rate (eGFR) is calculated using the 2020 CKD-EPI creatinine equation. This equation utilizes serum creatinine, sex, and age as parameters. The creatinine assay has traceable calibration to isotope dilution- mass spectrometry. Refer to KDIGO guidelines for clinical interpretation. In patients with unstable renal function, e.g. those with acute kidney injury, the eGFRmay not accurately reflect actual GFR. Cholesterol, Total 09/20/2021 286 (A) <200 mg/dL Final <200 mg/dL, Desirable 200-239 mg/dL, Borderline high >239 mg/dL, High Triglyceride 09/20/2021 316 (A) <150 mg/dL Final <150 mg/dL, Normal 150-199 mg/dL, Borderline high 200-499 mg/dL, High >499 mg/dL, Very high HDL Cholesterol 09/20/2021 50 >39 mg/dL Final 40-59 mg/dL, Acceptable >59 mg/dL, High: Negative risk factor for coronary heart disease <40 mg/dL, Low: Positive risk factor for coronary heart disease Non HDL Cholesterol 09/20/2021 236 (A) <130 mg/dL Final <130 mg/dL, Optimal 130-159 mg/dL, Near optimal/above optimal 160-189 mg/dL, Borderline high 190-219 mg/dL, High >219 mg/dL, Very high Secondary prevention optimal non HDL Cholesterol levels are recommended to be <100 mg/dL Fasting Time 09/20/2021 12 hrs Final VLDL Cholesterol 09/20/2021 63 (A) <30 mg/dL Final TC:HDL Ratio 09/20/2021 5.72 (A) <5.10 Final LDL Cholesterol 09/20/2021 173 (A) <100 mg/dL Final <100 mg/dL, Optimal 100-129 mg/dL, Near optimal/above optimal 130-159 mg/dL, Borderline high 160-189 mg/dL, High >189 mg/dL, Very high Secondary prevention optimal LDL Cholesterol levels are recommended to be < 70 mg/dL LDL:HDL Ratio 09/20/2021 3.46 (A) <2.54 Final Reference: 1. National Cholesterol Education Program ATP III Guideline At-A-Glance Quick Desk Reference: National Heart, Lung, and Blood [place]. National Institutes of Health. 2001: NIH Publication No. 01-3305. 2. An International Atherosclerosis Society position paper: global recommendations for the management of dyslipidemia: executive summary, Atherosclerosis. 2014: 232(2):410-413. Vitamin D 25 Hydroxy 09/20/2021 24.2 (A) 30.0 - 100.0 ng/mL Final Classification of 25 [place] Vitamin D status: Deficiency: <= 20.0 ng/ml. Insufficientcy: 21.0-29.0 ng/ml. Sufficiency: >= 30.0 ng/ml. TSH 09/20/2021 2.170 0.270 - 4.200 mIU/L Final Procedure Notes: No notes on file New medication(s) prescribed today: Yes: . Discussed new medication dosage, usage, goals of therapy, and side effects. Patient has been apprised of any potential drug interactions to be aware of. Patient expresses understanding. Counseling completed in adopting health behaviors such as avoiding excessive alcohol use, avoid tobacco use, improve nutrition, and engage in physical activities. Copy of written care plan, clinical summary, treatment plan, new medications, goals, and self management requirements were given to patient. Assessment/Plan: ASSESSMENT/PLAN: 1. Abscess of neck - ICD9: 682.1, ICD10: L02.11 (primary diagnosis) Resolved 2. Diabetes mellitus due to underlying condition, uncontrolled, with hyperglycemia (HCC) - ICD9: 249.81, 790.29, ICD10: E08.65 Improving A1c 11.5 BS 184 - TRULICITY 1.5 MG/0.5 ML SUBCUTANEOUS PEN INJECTOR 3. H/O medication noncompliance - ICD9: V15.81, ICD10: Z91.14 Improving 4. Elevated serum creatinine - ICD9: 790.99, ICD10: R79.89 Recommend increase fluid intake - CONSULT TO NEPHROLOGY 5. Elevated alkaline phosphatase level - ICD9: 790.5, ICD10: R74.8 Resolved 6. Hyponatremia - ICD9: 276.1, ICD10: E87.1 Resolved 7. Microalbuminuria - ICD9: 791.0, ICD10: R80.9 - CONSULT TO NEPHROLOGY 8. Hypertension, essential - ICD9: 401.9, ICD10: I10 - good control - Continue current medication(s) - Recommended regular aerobic exercise. - Recommend home blood pressure monitoring, to bring results in on next visit - Discussed need and benefit for weight loss. - Goal of BP <130/80 - LISINOPRIL 20 MG TABLET 9. Bilateral leg edema - ICD9: 782.3, ICD10: R60.0 It was recommended that patient decrease sodium in the diet, drink plenty of non-caffeinated fluids, and elevate their lower extremities while seated. 10. Vitamin D deficiency - ICD9: 268.9, ICD10: E55.9 Improving Continue dietary changes 11. Mixed hyperlipidemia - ICD9: 272.2, ICD10: E78.2 - suboptimal control - Begin treatment with rosuvastatin (Crestor) 5 mg - Encouraged following a low fat, low cholesterol diet. - ROSUVASTATIN 5 MG TABLET 12. MEKHI (obstructive sleep apnea) - ICD9: 327.23, ICD10: G47.33 Briefly discussed MEKHI signs and symptoms. Did explain to patient that undetected and untreated MEKHI could lead to heart attack, stroke, liver and kidney failure, depression, weight gain as well as dementia. Patient voiced understanding - PAP TITRATION PSG (CPAP, BIPAP, ASV) 13. Hyperkalemia - ICD9: 276.7, ICD10: E87.5 Controlled 14. 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 - ICD9: 530.85, ICD10: K22.719 15. Malignant neoplasm of rectum (HCC) - ICD9: 154.1, ICD10: C20 Follow-up with general surgery 16. Benign prostatic hyperplasia, unspecified whether lower urinary tract symptoms present - ICD9: 600.00, ICD10: N40.0 Follow-up with urology 17. Anxiety and depression - ICD9: 300.00, 311, ICD10: F41.9, F32.A Stable Follow-up with psychiatry Encourage patient to be his own advocate rather than his worst enemy 18. Marijuana use - ICD9: 305.20, ICD10: F12.90 Stable 19. Diarrhea, unspecified type - ICD9: 787.91, ICD10: R19.7 Recommend discontinue Cleocin Bananas, rice, applesauce, and toast diet. - CRYPTOSPORIDIUM AND GIARDIA ANTIGENS BY EIA - STOOL CULTURE/EIA - C. DIFFICILE PCR 20. Obesity, Class II, BMI 35-39.9 - ICD9: 278.00, ICD10: E66.9 Weight decreasing - Behavioral intervention Belgica Vega DO Return for Diabetes, Hypertension, Visit for re-check, Medication follow-up., Hyperlipidemia If symptoms persist, worsen, or no improvement, patient is to call 911 and/or go to the nearest ED. documented in this encounterVan [facility] Miscellaneous Notes* Telephone Encounter - Nancy Howard - 09/20/2021 2:16 PM EDT Images from the original note were not included. Referral to Ophthalmology Confirmation number: [id number] documented in this encounterVan [facility]06[facility]22 History of Present illness Narrative* Belgica Vega DO - 09/20/2021 1:23 PM EDT Transitional Care Management TCM Eligibility Documentation The following information was gathered during the initial Patient Outreach Encounter. No flowsheet data found. Summary Discharged from: [facility] Admit Date: 09/06/2021 Admitted for: boil on neck Sherice Alegre MA Provider Documentation José Manuel Ashton is a 60 year old male here today for a follow up to recent hospitalization. I have reviewed the patient's hospital course including diagnostic testing performed during this hospitalization, their discharge medications, and my assessment and plan with the patient and any family members present at today's visit. HPI: Patient was seen at ED on September 06, 2021. Patient presented with neck pain and nausea. Patient was seen 2 days prior for abscess on his neck which was I&D. Patient was given IV clindamycin and blood cultures were obtained. Patient was prescribed doxycycline.. Pt indicates abscess has gotten smaller, it did drain. Pt finished 10 days of ATB. Finished ATB last monday. Per ED note patient has been noncompliant with his diabetic medications. Had been taking metformin but not Trulicity, Lantus or insulin injections and does not monitor his blood glucose. Patient doeshave history of DKA. Patient does see endocrinology. Pt states try to takes metformin and shots. Pttook trulicity yesterday. Had D this am. Patient is being prescribed Glucophage XR 1 g before breakfast..Endocrinology does prescribe diabetic supplies. Per health maintenance patient is due for dilated retinal exam. Patient's A1c was 13 during April 2021 Reviewing chart, Patient is being prescribed Lantus 26 units, Trulicity 1.5 weekly, Actos 45 mg. Patient had been tolerating medications well. Patient's dose of Trulicity was increased from 0.75-1.5 weekly. Per health maintenance patient is due for dilated retinal exam. Patient does have history of microalbuminuria.. Albumin/creatinine ratio was 1237 during July 2021. Pt admits takes DM meds about 3-4 times per week. Cant answer why doesn't take daily. Per chart review wound culture showed few staph aureus on September 02, 2021. Glucose was 305 on September 07. Alkaline phosphatase 143 glucose 389 on September 06, creatinine 1.27 sodium 134. No evidence of sepsis patient was given IV doxycycline, 2 L IV fluid 5 units of regular insulin. Was given additional 5 daysof doxycycline p.o. CBC was unremarkable during September 06, 2021. Patient has history of hypertension and lower extremity edema. Patient's BP today is 143/84. Patient is on lisinopril 20 mg and is tolerating medication well. BP during last office visit was 127/79 during August 2021.Pt hasnt taken lisinopril yet. Pt states has so many bottles of pills. Patient does have history of hyperkalemia. Potassium was 4.7 during September 2021 Patient has history of hyperlipidemia. Cholesterol was 280 LDL 160 during July 2021. Patient had admitted to eating cheese daily also nut and peanut butter. Dietary changes were recommended. Patient has history of vitamin D deficiency. Vitamin D was 18.3 during July 2021. Patient does have history of MEKHI. It was recommended patient schedule Pap titration previously. Pt hasnt done that yet. Pap titration is pending from November 20, 2020 Patient does have history of Will's esophagitis and malignant neoplasm of rectum.Patient does have history of chronic nausea, Will's esophagitis and hyperplastic polyp in the duodenum. Patient also has history of invasive adenocarcinoma of the rectum.Patient is status post rectal surgery November 24, 2020. Patient does see general surgeon and oncologist. Pt had MRI of pelvis. States has too many things going, list gets longer and longer Pt had MRI 08/11/21: . Impression IMPRESSION: Suggestion of postoperative changes in the mid rectal wall. No tumor was identified on the preoperative exam, no suspicious lesion on this exam. No pelvic lymphadenopathy. Pt states To see Dr. Lugo. Pt states something snapping in groin there. Pt states took shots last night. Cant recall if took his pills. Didn't take pills, is fasting for lab. States has lab to do. Patient has history of BPH and hematuria. patient is on Flomax from urology Patient does see psychiatry for anxiety and depression. Patient is on Wellbutrin SR 100 mg.. Pt admits he is his own worse enemy. Pt admits is too darn stubborn. Dislikes taking pills. Patient does have history of marijuana use. Patient smokes about 2 joints per day. Review of Systems Constitutional: Negative for chills, diaphoresis, fever and malaise/fatigue. Respiratory: Negative for shortness of breath. Cardiovascular: Negative for chest pain and leg swelling. Gastrointestinal: Positive for abdominal pain and diarrhea. Negative for nausea and vomiting. Genitourinary: Negative for dysuria. Musculoskeletal: Negative for joint pain. Skin: Positive for rash. Neurological: Negative for dizziness and headaches. Endo/Heme/Allergies: Negative for environmental allergies. Psychiatric/Behavioral: Negative for depression. Vitals BP 143/84 Pulse 99 Temp 98.3 Ht 5' 10" (1.78m) Wt 260 lb (117.9kg) BMI 37.31 kg/(m^2). Physical Exam HENT: Head: Normocephalic and atraumatic. Right Ear: Tympanic membrane, ear canal and external ear normal. Left Ear: Tympanic membrane, ear canal and external ear normal. Nose: Nose normal. Mouth/Throat: Pharynx: Uvula midline. Eyes: General: Lids are normal. Conjunctiva/sclera: Conjunctivae normal. Pupils: Pupils are equal, round, and reactive to light. Neck: Trachea: Trachea normal. Cardiovascular: Rate and Rhythm: Normal rate and regular rhythm. Pulses: Normal pulses. Heart sounds: Normal heart sounds. Pulmonary: Effort: Pulmonary effort is normal. Breath sounds: Normal breath sounds. Abdominal: General: Bowel sounds are normal. Palpations: Abdomen is soft. Tenderness: There is no abdominal tenderness. There is no guarding. Musculoskeletal: Cervical back: Neck supple. Right lower le+ Pitting Edema present. Left lower le+ Pitting Edema present. Lymphadenopathy: Cervical: No cervical adenopathy. Skin: General: Skin is warm and dry. Findings: Erythema, lesion and rash present. Rash is papular. Comments: Right posterior neck 5 x 4 cm erythematous papule, there is some clear vesicles, no active drainage there is no fluctuance in the center. Neurological: Mental Status: He is alert and oriented to person, place, and time. Psychiatric: Mood and Affect: Affect normal. ASSESSMENT/PLAN: 1. Hospital discharge follow-up - ICD9: V67.59, ICD10: Z09 (primary diagnosis) 2. Abscess of neck - ICD9: 682.1, ICD10: L02.11 Recommend moist compresses Areas not ready for I&D yet Patient can follow-up with general surgery for possible I&D - CLINDAMYCIN HCL 300 MG CAPSULE 3. Diabetes mellitus due to underlying condition, uncontrolled, with hyperglycemia (HCC) - ICD9: 249.81, 790.29, ICD10: E08.65 Encourage compliance with diabetic medications - COMP METABOLIC PANEL - GLUCOSE, BLOOD (POC) 197 - HEMOGLOBIN A1C (POC) 12.5 4. H/O medication noncompliance - ICD9: V15.81, ICD10: Z91.14 5. Elevated serum creatinine - ICD9: 790.99, ICD10: R79.89 Recommend continue to increase fluid intake - COMP METABOLIC PANEL 6. Elevated alkaline phosphatase level - ICD9: 790.5, ICD10: R74.8 Briefly discussed in layman's terms - COMP METABOLIC PANEL 7. Hyponatremia - ICD9: 276.1, ICD10: E87.1 - COMP METABOLIC PANEL 8. Microalbuminuria - ICD9: 791.0, ICD10: R80.9 Encourage compliance with medication 9. Hypertension, essential - ICD9: 401.9, ICD10: I10 - suboptimal control - Continue current medication(s) - Recommended regular aerobic exercise. - Recommend home blood pressure monitoring, to bring results in on next visit - Goal of BP <130/80 - TSH BLD 10. Bilateral leg edema - ICD9: 782.3, ICD10: R60.0 It was recommended that patient decrease sodium in the diet, drink plenty of non-caffeinated fluids, and elevate their lower extremities while seated. 11. MEKHI (obstructive sleep apnea) - ICD9: 327.23, ICD10: G47.33 Continue CPAP 12. Vitamin D deficiency - ICD9: 268.9, ICD10: E55.9 - VITAMIN D 25 HYDROXY 13. Mixed hyperlipidemia - ICD9: 272.2, ICD10: E78.2 - to be determined upon return of lab results - Encouraged following a low fat, low cholesterol diet. - Discussed the benefits of regular aerobic exercise and weight loss. - LIPID PANEL BASIC 14. Hyperkalemia - ICD9: 276.7, ICD10: E87.5 - COMP METABOLIC PANEL 15. 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 Malignant neoplasm of rectum (HCC) - ICD9: 154.1, ICD10: C20 Follow-up with general surgery 17. Benign prostatic hyperplasia, unspecified whether lower urinary tract symptoms present - ICD9: 600.00, ICD10: N40.0 Follow-up with urology 18. Anxiety and depression - ICD9: 300.00, 311, ICD10: F41.9, F32.A Follow-up with psychiatry 19. Marijuana use - ICD9: 305.20, ICD10: F12.90 20. Screening for diabetic retinopathy - ICD9: V80.2, ICD10: Z13.5 - CONSULT TO OPHTHALMOLOGY Beglica Vega DO September 20, 2021 1:23 PM documented in this encounterVan [facility] History of Present illness Narrative* Jen Bergman RN - 09/17/2021 10:15 AM EDT PRIMARY CARE COORDINATION FOLLOW-UP NOTE Patient identified by name and date of . YES Spoke to patient Summary: PCC called for routine f/u. Pt is "doing alright". States that he is "hanging in here". His boil has gone sown "quite a bit". he still has a bump and a "little bit" of seeping. Pt hasn't checked his blood sugars in a "couple of days". States that his sugar was >300, then went down to "2 something". Encouraged to check his sugars. Pt states that he hasn't taken his meds yet today. Encouraged totake his meds now - agreeable. Pt isn't sure if he needs any refills. Advised to check if he needs refills and call PCC back - agreeable. Pt is aware of his PCP appointment on 09/20/21 at 1:20p. No other concerns today. Goals: Active Goals - Current status as of 09/17/2021 at 10:16 AM Most Recent Address all appropriate HM and disease care gaps No change (09/17/2021) Annual BMP On track (09/06/2021) Last 09/02/21 Annual foot exam On track (09/06/2021) Annual microalbumin On track (09/06/2021) Annual retina exam No change (08/05/2021) Blood Pressure < 130/80 154/93 (09/07/2021) Confirm medication adherence of all prescribed medications and uses them correctly No change (03/24/2021) HBA1C drawn quarterly On track (09/06/2021) Hemoglobin A1C < 7 11.6 (07/05/2021) Improve your coping skills No change (10/28/2020) LDL at or below 100 mg/dL or on a high statin No change (09/06/2021) Last 07/05/21 LDL = 160 (No meds) Reduce fat intake On track (05/25/2021) Reduce sugar intake On track (05/25/2021) Tobacco cessation Understands and follows a low salt diet No change (09/23/2020) Understands and follows DASH diet Weight mgmt/activity No change (09/23/2020) 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 Signature Jen Bergman RN September 17, 2021 documented in this encounterVan [facility]06-[facility] History of Present illness Narrative* Jen Bergman RN - 09/08/2021 2:32 PM EDT [facility] FOLLOW UP INITIAL CONTACT Initial contact with patient post discharge, spoke to pt. Patient identified by name and date : YES SUMMARY: -Patient discharged from [facility] ED on 09/07/21. -Follow up appointment on on 09/20/21 at 1:20p. -Medication review done YES. -Presented with: Neck Pain Nausea Fatigue Chills Concern of systemic illness - Boil of neck Abscess continues to drain following incision and drainage 09/02/21 CONCERNS: Pt was D/C'd from the ED yesterday. PCC received call from pt. Pt is aware of his PCP appointment on 09/20/21 at 1:20p. At this time, he doesn't feel that he needs a sooner appointment. Pt states thathe gets an "infection sickness". No fever. The area on his next "stings". He is taking his PO atbs.States that he doesn't feel good, but that this always happens when he is on atbs. Denies needs today. NEW MEDICATIONS: START taking these medications ondansetron orally disintegrating 4 mg disintegrating tablet Commonly known as: ZOFRAN ODT Take 1 tablet by mouth every 6 hours as needed for nausea/vomiting for up to 7 days. doxycycline monohydrate 100 mg tablet - Had a dosing for 09/02-09/07/21 Take 1 tablet by mouth twice daily for 5 days. doxycycline monohydrate 100 mg tablet - Now taking a dosing for 09/07-09/12/21 Take 1 tablet by mouth twice daily for 5 days. MEDS HELD/DISCONTINUED: None BRIEF ED COURSE: Care Timeline 09/06 2108 Arrived 2242 ketorolac tromethamine 15 mg 224 CBC + DIFF COMP METABOLIC PANEL LACTIC ACID/LACTATE VENOUS BLOOD GASES 2250 Ringer's solution,lactated 1000 mL doxycycline 100 mg in D5W 250 mL (VIBRAMYCIN) 100 mg 09/07 003 insulin regular, human 5 Units 0127 GLUCOSE, BLOOD (POC) 0216 Discharged documented in this encounterVan [facility]06[facility] History of Present illness Narrative* Jen Bergman RN - 09/06/2021 12:58 PM EDT PRIMARY CARE COORDINATION FOLLOW-UP NOTE Patient identified by name and date of . NO Summary: PCC received msg from pt returning call from 09/03/21. PCC called pt back - didn't reach pt. Goals: Active Goals - Current status as of 09/06/2021 at 1:00 PM Most Recent Address all appropriate HM and disease care gaps No change (09/06/2021) Annual BMP On track (09/06/2021) Last 09/02/21 Annual foot exam On track (09/06/2021) Annual microalbumin On track (09/06/2021) Annual retina exam No change (08/05/2021) Blood Pressure < 130/80 166/78 (09/02/2021) Confirm medication adherence of all prescribed medications and uses them correctly No change (03/24/2021) HBA1C drawn quarterly On track (09/06/2021) Hemoglobin A1C < 7 11.6 (07/05/2021) Improve your coping skills No change (10/28/2020) LDL at or below 100 mg/dL or on a high statin No change (09/06/2021) Last 07/05/21 LDL = 160 (No meds) Reduce fat intake On track (05/25/2021) Reduce sugar intake On track (05/25/2021) Tobacco cessation Understands and follows a low salt diet No change (09/23/2020) Understands and follows DASH diet Weight mgmt/activity No change (09/23/2020) 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 Signature Jen Bergman RN September 06, 2021 documented in this encounterVan [facility]05-27-[facility] History of Present illness Narrative* Janie Pickett, CASKET UPHOLSTERER.PRODUCTION INTERN - 08/27/2021 8:42 AM EDT Subjective Important Lab History: HBA1C: 02/2020: 13.2%, 05/2020: 10.5%, 09/2020: 11.6%, 10/2020: 12.3%, 01/2021: 11.2%, 04/2021: 13%, 06/2021: 11.5%, 07/2021: 11.6%, 08/2021: 12.7% Thyroid Function Testin02/2020: TSH 1.16 (0.27-4.2 uIU/mL), 10/2020: TSH 1.05 (0.27-4.2 uIU/mL), 04/2021: TSH 1.45 (0.27-4.2 uIU/mL), 07/2021: TSH 1.66 (0.27- 4.2 uIU/mL), Renal Function Testin07/2020: Creatinine 1.31 eGFR 56, 10/2020: Creatinine 1.31 eGFR 56, 01/2021: Creatinine 1.19, 04/2021: Creatinine 1.07, 07/2021: Creatinine 1.36 eGFR 59 Urine for Microalbumin: 05/2020: Microalbumin:Creatinine Ratio 914, 10/2020: Microalbumin:Creatinine Ratio 457, 04/2021: Microalbumin:Creatinine Ratio 881, 07/2021; Microalbumin:Creatinine Ratio 1237 done by Primary Care Provider Lipid Profile: 05/2020: TC 228 HDL 41 LDL 127 TG 302, 10/2020: TC 228 HDL 41 LDL 127 TG 302, 04/2021: TC 259 HDL 45 LDL 147 TG 336, 07/2021: TC 280 HDL 63 LDL 160 TG 284 Liver Profile: 02/2020: Alkaline Phosphatase 117 (38-113), AST and ALT ok, 10/2020: AST ALT AlkalinePhosphatase ok, 01/2021: Alkaline Phosphatase 129 (46- 116), AST and ALT ok, 04/2021: AST ALT Alkaline Phosphatase ok, 07/2021: Alkaline Phosphatase 122 (38-113), AST and ALT ok Moved from [place] at some point. Was taking actos plus Metformin. Eventually Primary Care Provider Added basal insulin. 10/2020: first time office visit with Janie Pickett APRN.PRODUCTION INTERN for diabetes management. Previous diabetes related labs from [facility] and [employer] systems reviewed prior to today's office visit. Any changes made at our last diabetes management visit were abstracted accordingly (if applicable). Today's Office Visit: Orals: Actos 45 mg daily, Metformin ER 500 mg 2 tabs at breakfast and dinner, Basal insulin (dosed in units) Supper dose: Other: trulicity 1.5 mg, recently titrated from 0.75 mg weekly by Primary Care Provider "self monitoring blood glucose data": testing often times 2x/day, admits he won't test more than than, past weeks readings have significantly improved from baseline, most readings under 220. Not ableto get CGM covered, not on insulin 3x/day. Diet: liberal Exercise: limited Denies frequent periods of hypoglycemia I reviewed and updated the below Review of Systems for today's office visit. 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 Ahmadi FAMILY HISTORY Problem Relation Age of Onset other (Heart stroke) Mother other (Glaucoma lung cancer) Father Glaucoma Sister Glaucoma Brother Social History Tobacco Use Smoking status: Former Smoker Packs/day: 1.00 Years: 37.00 Pack years: 37.00 Types: Cigarettes Quit date: 04/03/2010 Years since quittin.4 Smokeless tobacco: Never Used Tobacco comment: Smokes [place] Vaping Use Vaping Use: Never used Substance Use Topics Alcohol use: Not Currently Drug use: Yes Types: Marijuana Comment: daily Current Meds dulaglutide (TRULICITY) 1.5 mg/0.5 mL pen injector Inject 1.5 mg subcutaneously one time a week. lisinopril (ZESTRIL, PRINIVIL) 20 mg tablet Take 1 tablet by mouth once daily. pioglitazone (ACTOS) 45 mg tablet Take 1 tablet by mouth once daily. metFORMIN ER (GLUCOPHAGE XR) 500 mg 24 hr tablet Two tablets before breakfast and before supper Insulin [place], Disposable, (COMFORT EZ PEN NEEDLES) 29 gauge x 1/2" 1 Each once daily. insulin glargine (LANTUS SOLOSTAR, BASAGLAR KWIKPEN) 100 unit/mL (3 mL) Inject 26 Units subcutaneously daily at bedtime. buPROPion SR (WELLBUTRIN SR) 100 mg 12 hr tablet Take 1 tablet by mouth once daily. pantoprazole DR (PROTONIX) 40 mg tablet Take 1 tablet by mouth twice daily before meals (0600/1600). blood sugar diagnostic (BLOOD GLUCOSE TEST) test strip 3x/day tamsulosin (FLOMAX) 0.4 mg Take 1 capsule by mouth once daily. iv contrast (will be provided with radiology test) MRI Pelvis Inject, intravenously, once for 1 dose. No IV access, insert saline lock prior to the beginning of sedation, infusion, injection of imaging exam. Discontinue saline lock post exam. If Pt has a central line or IVAD, may access for administration according to line specific nursing protocol. Once exam is complete flush line and de-access according to line specific nursing protocol in the MR contrast administration guidelines link. lidocaine (XYLOCAINE) 2 % jelly Apply 1 application to affected area three times daily. albuterol HFA (PROVENTIL HFA, VENTOLIN HFA) 90 mcg/actuation inhaler Inhale 2 Puffs as instructed every 4 hours as needed for wheezing/shortness of breath. gabapentin (NEURONTIN) 300 mg capsule Take 1 capsule by mouth three times daily for 90 days. Blood-Glucose Meter monitoring kit For monitoring sugars 3x/day (patient on insulin) Lancets lancets Use as instructed 3x/day alcohol swabs (ALCOHOL PREP PADS) Apply 1 application to affected area as directed. Objective There were no vitals taken for this visit. Physical Exam documented in this encounterVan [facility]05-13-2022 Miscellaneous Notes* Telephone Encounter - Fermin Dowell Ma - 08/13/2021 9:18 AM EDT 08/13/2021 Patient informed of results. Fermin Dowell Ma * Telephone Encounter - Fermin Dowell Ma - 08/13/2021 9:17 AM EDT ----- Message from Artem Ahmadi MD sent at 08/12/2021 2:43 PM EDT ----- No signs of tumor recurrence were seen on the MRI, and we should plan for a colonoscopy in November, as well as an office visit in October to continue monitoring him. Artem Ahmadi MD August 12, 2021 2:42 PM documented in this encounterVan [facility]05-11-2022 History of Present illness Narrative* Belgica Vega DO - 08/11/2021 4:25 PM EDT Images from the original note were not included. Belgica Vega [address] [place] [address] Visit Date: August 11, 2021 Mr.Jim Najma Ashton Date of : 1960 MRN/E #: [id number] History of Present Illness José Manuel Ashton is a 60 year old male. Patient presents to the clinic today for follow-up diabetes, MRI results, lab HPI Patient has history of diabetes.. Patient is on Lantus 26 units, Trulicity 0.75 mg weekly, Actos 45mg. Patient is also on Glucophage 2 tablets before breakfast. During last office visit patient was started on Trulicity. Patient had admitted that he either takes his insulin then does not take it atall. Patient has been hospitalized in the past for DKA on multiple occasions after not taking his in sulin . Pt indicates tried trulicity a couple times. Does good x 1 week. Then gets off of everything. Doesn't know what it is , feels its mental. Does well with meds x 1-1.5 week. Then stops taking them all then tries to get back on them. States will get back on it, has to get mind set where gets on themand stays on them. Patient does see endocrinology for his diabetes. Patient is being prescribed Glucophage XR 1 g before breakfast..Endocrinology does prescribe diabetic supplies. Per health maintenance patient is due for dilated retinal exam. Patient's A1c was 13 during April 2021 Patient does have history of hypertension and lower extremity edema.. BP today is 127/79.Patient yue lisinopril 20 mg and is tolerating medication well. Patient does have history of MEKHI. It was recommended patient schedule Pap titration previously. Pt hasnt done that yet. Pap titration is pending from November 20, 2020 Patient had lab July 05, 2021. Albumin/creatinine ratio was 1237, increased from 881. Vitamin D18.3Increased from 12, A1c 11.6, TSH 1.66, PSA 0.97. Cholesterol 280, triglyceride 284 HDL 63 LDL 160. Alkaline phosphatase was 122, glucose was 397, creatinine 1.36, potassium 5.2, rest of CMP unremarkable, CBC unremarkable. Patient does have history of hyperlipidemia. Cholesterol was 259, LDL was 160 during April 2021. Pt admits eating a lot of cheese, nuts, eats peanut butters. Pt admits eats cheese daily , puts cheese on everything. Patient also has history of vitamin D deficiency, it was 12 during April 2021 Patient does have history of Will's esophagitis and malignant neoplasm of rectum.Patient does have history of chronic nausea, Will's esophagitis and hyperplastic polyp in the duodenum. Patient also has history of invasive adenocarcinoma of the rectum.Patient is status post rectal surgery November 24, 2020. Patient does see general surgeon and oncologist. Patient obtain MRI which was scheduled by GI secondary to history of colon cancer. MRI of pelvis ispending, patient informed results not available and to follow-up with GI who ordered the test. Patient has history of BPH and hematuria. patient is on Flomax from urology Patient does see psychiatry for anxiety and depression. Patient is on Wellbutrin SR 100 mg. Patientis no longer on Atarax per chart review. Patient does have history of marijuana use. Pt indicates was OOT, didn't see ashvin, to make appointment. States so many things to get done, has to get done. Has cut back MJ use to 2 joints per day. Use to do 4-5 per day. Been stressed over MRI , colon , groin stuff. Too many things at once. Pt admits likes to sit by firepit. Patient's last annual physical was February 14, 2020. 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 Ahmadi Social History Tobacco Use Smoking status: Former Smoker Packs/day: 1.00 Years: 37.00 Pack years: 37.00 Types: Cigarettes Quit date: 04/03/2010 Years since quittin.3 Smokeless tobacco: Never Used Tobacco comment: Smokes [place] Vaping Use Vaping Use: Never used Substance Use Topics Alcohol use: Not Currently Drug use: Yes Types: Marijuana Comment: daily ALLERGIES Allergen Reactions Penicillins Unknown Pt states he thinks he had a reaction as a child Family History Problem Relation Age of Onset other (Heart stroke) Mother other (Glaucoma lung cancer) Father Glaucoma Sister Glaucoma Brother Current Outpatient Medications Medication Sig Dispense Refill lisinopril (ZESTRIL, PRINIVIL) 20 mg tablet Take 1 tablet by mouth once daily. 90 tablet 0 pioglitazone (ACTOS) 45 mg tablet Take 1 tablet by mouth once daily. 90 tablet 3 metFORMIN ER (GLUCOPHAGE XR) 500 mg 24 hr tablet Two tablets before breakfast and before supper 120tablet 1 Insulin [place], Disposable, (COMFORT EZ PEN NEEDLES) 29 gauge x 1/2" 1 Each once daily. 100 Each 3 insulin glargine (LANTUS SOLOSTAR, BASAGLAR KWIKPEN) 100 unit/mL (3 mL) Inject 26 Units subcutaneously daily at bedtime. 6 Pen 1 buPROPion SR (WELLBUTRIN SR) 100 mg 12 hr tablet Take 1 tablet by mouth once daily. 30 tablet 2 blood sugar diagnostic (BLOOD GLUCOSE TEST) test strip 3x/day 100 Strip 11 tamsulosin (FLOMAX) 0.4 mg Take 1 capsule by mouth once daily. 90 capsule 5 lidocaine (XYLOCAINE) 2 % jelly Apply 1 application to affected area three times daily. 30 mL 2 albuterol HFA (PROVENTIL HFA, VENTOLIN HFA) 90 mcg/actuation inhaler Inhale 2 Puffs as instructed every 4 hours as needed for wheezing/shortness of breath. 1 Each 0 Blood-Glucose Meter monitoring kit For monitoring sugars 3x/day (patient on insulin) 1 Each 1 Lancets lancets Use as instructed 3x/day 100 Each 11 alcohol swabs (ALCOHOL PREP PADS) Apply 1 application to affected area as directed. 100 Each 3 dulaglutide (TRULICITY) 1.5 mg/0.5 mL pen injector Inject 1.5 mg subcutaneously one time a week. [address] (PROTONIX) 40 mg tablet Take 1 tablet by mouth twice daily before meals (0600/1600). 60 tablet 0 iv contrast (will be provided with radiology test) MRI Pelvis Inject, intravenously, once for 1 dose. No IV access, insert saline lock prior to the beginning of sedation, infusion, injection of imaging exam. Discontinue saline lock post exam. If Pt has a central line or IVAD, may access for administration according to line specific nursing protocol. Once exam is complete flush line and de-access according to line specific nursing protocol in the MR contrast administration guidelines link. (Patient not taking: Reported on 06/02/2021 ) 1 Each 0 gabapentin (NEURONTIN) 300 mg capsule Take 1 capsule by mouth three times daily for 90 days. 90 capsule 2 No current facility-administered medications for this visit. Review of Systems Constitutional: Negative for chills, diaphoresis, fever and malaise/fatigue. HENT: Negative for sore throat. Eyes: Negative for redness. Respiratory: Negative for shortness of breath. Cardiovascular: Negative for chest pain and leg swelling. Gastrointestinal: Negative for abdominal pain, nausea and vomiting. Genitourinary: Negative for dysuria. Musculoskeletal: Positive for back pain and myalgias. Negative for joint pain. Skin: Negative for rash. Neurological: Negative for dizziness and headaches. Endo/Heme/Allergies: Negative for environmental allergies. Psychiatric/Behavioral: Negative for depression. The patient is nervous/anxious. BP 127/79 Pulse 94 Temp 98.3 Ht 5' 10" (1.78m) Wt 270 lb (122.5kg) BMI 38.74 kg/(m^2). Physical Exam HENT: Head: Normocephalic and atraumatic. Right Ear: Tympanic membrane, ear canal and external ear normal. Left Ear: Tympanic membrane, ear canal and external ear normal. Nose: Nose normal. Mouth/Throat: Pharynx: Uvula midline. Eyes: General: Lids are normal. Conjunctiva/sclera: Conjunctivae normal. Pupils: Pupils are equal, round, and reactive to light. Neck: Trachea: Trachea normal. Cardiovascular: Rate and Rhythm: Normal rate and regular rhythm. Pulses: Normal pulses. Heart sounds: Normal heart sounds. Pulmonary: Effort: Pulmonary effort is normal. Breath sounds: Normal breath sounds. Abdominal: General: Bowel sounds are normal. Palpations: Abdomen is soft. Tenderness: There is no abdominal tenderness. There is no guarding. Musculoskeletal: Cervical back: Neck supple. Right lower le+ Pitting Edema present. Left lower le+ Pitting Edema present. Lymphadenopathy: Cervical: No cervical adenopathy. Skin: General: Skin is warm and dry. Neurological: Mental Status: He is alert and oriented to person, place, and time. Psychiatric: Mood and Affect: Affect normal. No visits with results within 1 Day(s) from this visit. Latest known visit with results is: Appointment on 07/05/2021 Component Date Value Ref Range Status WBC 07/05/2021 8.16 3.70 - 11.00 k/uL Final RBC 07/05/2021 5.24 4.20 - 6.00 m/uL Final Hemoglobin 07/05/2021 15.2 13.0 - 17.0 g/dL Final Hematocrit 07/05/2021 46.8 39.0 - 51.0 % Final MCV 07/05/2021 89.3 80.0 - 100.0 fL Final MCH 07/05/2021 29.0 26.0 - 34.0 pg Final MCHC 07/05/2021 32.5 30.5 - 36.0 g/dL Final RDW-CV 07/05/2021 13.0 11.5 - 15.0 % Final Platelet Count 07/05/2021 336 150 - 400 k/uL Final MPV 07/05/2021 10.3 9.0 - 12.7 fL Final Neut% 07/05/2021 67.5 % Final Abs Neut 07/05/2021 5.51 1.45 - 7.50 k/uL Final Lymph% 07/05/2021 24.1 % Final Abs Lymph 07/05/2021 1.97 1.00 - 4.00 k/uL Final [place]% 07/05/2021 7.0 % Final Abs [place] 07/05/2021 0.57 <0.87 k/uL Final Eosin% 07/05/2021 0.4 % Final Abs Eosin 07/05/2021 0.03 <0.46 k/uL Final Baso% 07/05/2021 0.1 % Final Abs Baso 07/05/2021 <0.03 <0.11 k/uL Final Immature Gran % 07/05/2021 0.9 % Final Abs Immature Gran 07/05/2021 0.07 <0.10 k/uL Final NRBC 07/05/2021 0.0 /100 WBC Final Absolute nRBC 07/05/2021 <0.01 <0.01 k/uL Final Diff Type 07/05/2021 Auto Final Protein, Total 07/05/2021 6.8 6.3 - 8.0 g/dL Final Albumin 07/05/2021 4.2 3.9 - 4.9 g/dL Final Calcium, Total 07/05/2021 10.2 8.5 - 10.2 mg/dL Final Bilirubin, Total 07/05/2021 0.4 0.2 - 1.3 mg/dL Final Alkaline Phosphatase 07/05/2021 122 (A) 38 - 113 U/L Final AST 07/05/2021 13 (A) 14 - 40 U/L Final ALT 07/05/2021 16 10 - 54 U/L Final Glucose 07/05/2021 397 (A) 74 - 99 mg/dL Final The [place] [employer] (ADA) provides guidance for cutoff values for fasting glucose andrandom glucose. The ADA defines fasting as no caloric intake for at least 8 hours. Fasting plasma glucose results between 100 to 125 mg/dL indicate increased risk for diabetes (prediabetes). Fasting plasma glucose results greater than or equal to 126 mg/dL meet the criteria for diagnosis of diabetes. In the absence of unequivocal hyperglycemia, results should be confirmed by repeat testing. In a patient with classic symptoms of hyperglycemia or hyperglycemic crisis, random plasma glucose results greater than or equal to 200 mg/dL meet the criteria for diagnosis of diabetes. Reference: Standards of Medical Care in Diabetes 2016, [place] [employer]. Diabetes Care. 2016.39(Suppl 1). BUN 07/05/2021 30 (A) 9 - 24 mg/dL Final Creatinine 07/05/2021 1.36 (A) 0.73 - 1.22 mg/dL Final Sodium 07/05/2021 139 136 - 144 mmol/L Final Potassium 07/05/2021 5.2 (A) 3.7 - 5.1 mmol/L Final Chloride 07/05/2021 101 97 - 105 mmol/L Final CO2 07/05/2021 26 22 - 30 mmol/L Final Anion Gap 07/05/2021 12 9 - 18 mmol/L Final Estimated Glomerular Filtration Ra* 07/05/2021 59 (A) >=60 mL/min/1.73m Final Estimated Glomerular Filtration Rate (eGFR) is calculated using the 2020 CKD-EPI creatinine equation. This equation utilizes serum creatinine, sex, and age as parameters. The creatinine assay has traceable calibration to isotope dilution- mass spectrometry. Refer to KDIGO guidelines for clinical interpretation. In patients with unstable renal function, e.g. those with acute kidney injury, the eGFRmay not accurately reflect actual GFR. Cholesterol, Total 07/05/2021 280 (A) <200 mg/dL Final <200 mg/dL, Desirable 200-239 mg/dL, Borderline high >239 mg/dL, High Triglyceride 07/05/2021 284 (A) <150 mg/dL Final <150 mg/dL, Normal 150-199 mg/dL, Borderline high 200-499 mg/dL, High >499 mg/dL, Very high HDL Cholesterol 07/05/2021 63 >39 mg/dL Final 40-59 mg/dL, Acceptable >59 mg/dL, High: Negative risk factor for coronary heart disease <40 mg/dL, Low: Positive risk factor for coronary heart disease Non HDL Cholesterol 07/05/2021 217 (A) <130 mg/dL Final <130 mg/dL, Optimal 130-159 mg/dL, Near optimal/above optimal 160-189 mg/dL, Borderline high 190-219 mg/dL, High >219 mg/dL, Very high Secondary prevention optimal non HDL Cholesterol levels are recommended to be <100 mg/dL Fasting Time 07/05/2021 12 hrs Final VLDL Cholesterol 07/05/2021 57 (A) <30 mg/dL Final TC:HDL Ratio 07/05/2021 4.44 <5.10 Final LDL Cholesterol 07/05/2021 160 (A) <100 mg/dL Final <100 mg/dL, Optimal 100-129 mg/dL, Near optimal/above optimal 130-159 mg/dL, Borderline high 160-189 mg/dL, High >189 mg/dL, Very high Secondary prevention optimal LDL Cholesterol levels are recommended to be < 70 mg/dL LDL:HDL Ratio 07/05/2021 2.54 (A) <2.54 Final Reference: 1. National Cholesterol Education Program ATP III Guideline At-A-Glance Quick Desk Reference: National Heart, Lung, and Blood [place]. National Institutes of Health. 2001: NIH Publication No. 01-3305. 2. An International Atherosclerosis Society position paper: global recommendations for the management of dyslipidemia: executive summary, Atherosclerosis. 2014: 232(2):410-413. PSA 07/05/2021 0.97 0.00 - 3.90 ng/mL Final Total PSA test methodology used is the Direct Chemiluminometric technology. TSH 07/05/2021 1.660 0.270 - 4.200 mIU/L Final Hemoglobin A1C 07/05/2021 11.6 (A) 4.3 - 5.6 % Final [place] [employer] guidelines indicate that patients with HgbA1c in the range 5.7-6.4% are at increased risk for development of diabetes, and intervention by lifestyle modification may be beneficial. HgbA1c greater or equal to 6.5% is considered diagnostic of diabetes. Estimated Average Glucose 07/05/2021 286 mg/dL Final eAG: (Estimated average glucose) is a calculated value from HgbA1c and is off premise service representative of the average blood glucose level in the last 2-3 month period. Vitamin D 25 Hydroxy 07/05/2021 18.3 (A) 30.0 - 100.0 ng/mL Final Classification of 25 [place] Vitamin D status: Deficiency: <= 20.0 ng/ml. Insufficientcy: 21.0-29.0 ng/ml. Sufficiency: >= 30.0 ng/ml. Creatinine, Ur Random (UCRR) 07/05/2021 108.0 46.8 - 314.5 mg/dL Final Albumin, Urine Random 07/05/2021 1,336.3 mg/L Final Albumin/Creat Ratio 07/05/2021 1,237 (A) <30 mg/g Final Adult Male and Female Nephrotic Criteria: <30 mg/g is considered normal to mildly increased 30-300 mg/g is considered moderately increased >300 mg/g is considered severely increased KDIGO. (2013). KDIGO 2012 Clinical Practice Guideline for the Evaluation and Management of Chronic Kidney Disease. Official Journal of the International Society of Nephrology, 3(1), 1-150. Procedure Notes: No notes on file New medication(s) prescribed today: Yes: . Discussed new medication dosage, usage, goals of therapy, and side effects. Patient has been apprised of any potential drug interactions to be aware of. Patient expresses understanding. Counseling completed in adopting health behaviors such as avoiding excessive alcohol use, avoid tobacco use, improve nutrition, and engage in physical activities. Copy of written care plan, clinical summary, treatment plan, new medications, goals, and self management requirements were given to patient. Assessment/Plan: ASSESSMENT/PLAN: 1. Diabetes mellitus due to underlying condition, uncontrolled, with hyperglycemia (HCC) - ICD9: 249.81, 790.29, ICD10: E08.65 (primary diagnosis) Improving - TRULICITY 1.5 MG/0.5 ML SUBCUTANEOUS PEN INJECTOR - PIOGLITAZONE 45 MG TABLET Follow-up with endocrinology A1c 12.7 BS 434 2. Microalbuminuria - ICD9: 791.0, ICD10: R80.9 Briefly discussed in layman's terms Worsening Continue lisinopril 20 mg 3. Hypertension, essential - ICD9: 401.9, ICD10: I10 - good control - Continue current medication(s) - Recommended regular aerobic exercise. - Recommend home blood pressure monitoring, to bring results in on next visit - Goal of BP <130/80 4. Bilateral leg edema - ICD9: 782.3, ICD10: R60.0 It was recommended that patient decrease sodium in the diet, drink plenty of non-caffeinated fluids, and elevate their lower extremities while seated. 5. MEKHI (obstructive sleep apnea) - ICD9: 327.23, ICD10: G47.33 Patient to schedule Pap titration 6. Vitamin D deficiency - ICD9: 268.9, ICD10: E55.9 Improving Dietary sources of vitamin D include fatty fishes such as salmon, sardines, tuna, mushrooms, cod liver oil, fortified milk, fortified soy milk, yogurt and egg yolks. Exposure to sunlight can also cause your skin to make vitamin D. Use of sunscreen with SPF 50 is recommended.You may elect to use 3000 nternational units of vitamin D daily,Which is available [id number] 7. Mixed hyperlipidemia - ICD9: 272.2, ICD10: E78.2 - suboptimal control - Encouraged following a low fat, low cholesterol diet. - Discussed the benefits of regular aerobic exercise and weight loss. Nuts, peanut butter,cheese , and beer can elevate triglyceride levels. A low-fat and low-cholesterol diet is recommended. Briefly discussed increased risk of pancreatitis with elevated triglycerides - LIPID PANEL BASIC 8. Elevated alkaline phosphatase level - ICD9: 790.5, ICD10: R74.8 - COMP METABOLIC PANEL 9. Elevated serum creatinine - ICD9: 790.99, ICD10: R79.89 10. Hyperkalemia - ICD9: 276.7, ICD10: E87.5 Mild 11. 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 Malignant neoplasm of rectum (HCC) - ICD9: 154.1, ICD10: C20 Follow-up with oncology Follow-up with general surgeon 13. Benign prostatic hyperplasia, unspecified whether lower urinary tract symptoms present - ICD9: 600.00, ICD10: N40.0 Follow-up with urology 14. Anxiety and depression - ICD9: 300.00, 311, ICD10: F41.9, F32.A Follow-up with psychiatry Recommend patient focus on one improvement he can make per day rather than getting overwhelmed thinking of his multiple medical concerns 15. Marijuana use - ICD9: 305.20, ICD10: F12.90 Decreasing Encourage decrease marijuana use 16. H/O medication noncompliance - ICD9: V15.81, ICD10: Z91.14 Encourage compliance Belgica Vega DO Return in about 1 month (around 09/11/2021) for Medication follow-up, Hypertension, Diabetes, Visit for re-check. If symptoms persist, worsen, or no improvement, patient is to call 911 and/or go to the nearest ED. 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 FALL SCREENING: Has the patient had 2 falls in the last year or 1 fall with injury or currently using an Ambulatory Assistive Device (Walker, Cane, Wheelchair, Crutches, etc.)? No PATIENT GENDER DATA: Male PATIENT RELEVANT IMPLANT DATA REVIEWED: Not Applicable ALLERGIES: Reviewed and unchanged CONTRAST ALLERGY: NO. EXAM: MRI - CONTRAST TYPE: GROUP II PERIPHERAL IV DATA: Ambulatory: A peripheral IV was started in the Right antecubital site with a Angio cath: 22 gauge. RADIOLOGY DEPARTMENT: MR; Exam(s) Completed: Body: Rectal SIGNATURE: SWETHA Black PATIENT NAME: José Manuel Ashton DATE: August 09, 2021 TIME: 4:14 PM documented in this encounterVan [facility]05-[facility] History of Present illness Narrative* Jen Bergman RN - 08/05/2021 11:58 AM EDT PRIMARY CARE COORDINATION FOLLOW-UP NOTE Patient identified by name and date of . YES Spoke to patient Summary: PCC called pt for routine f/u. Pt is "doing alright". States that he is "hanging in here". Pt hasn't been checking his blood sugars. Per pt, it "wigs me out". Pt doesn't like to see his sugars high. Pt states that he will start checking his sugars. Declined the Pneumovax and COVID vaccines at this time. Pt is scheduled for an MRI on 08/09/21. Reminded of his PCP appointment on 08/11/21 at . Has an eye appointment on 08/13/21. No refills needed. Denies needs today. Will call if needs arise. Goals: Active Goals - Current status as of 08/05/2021 at 12:00 PM Most Recent Address all appropriate HM and disease care gaps No change (07/22/2021) Annual BMP On track (07/22/2021) Last 07/05/21 Annual foot exam On track (07/22/2021) Annual microalbumin On track (07/22/2021) Annual retina exam No change (08/05/2021) Blood Pressure < 130/80 125/85 (07/05/2021) Confirm medication adherence of all prescribed medications and uses them correctly No change (03/24/2021) HBA1C drawn quarterly On track (07/22/2021) Hemoglobin A1C < 7 11.6 (07/05/2021) Improve your coping skills No change (10/28/2020) LDL at or below 100 mg/dL or on a high statin On track (07/22/2021) Last 07/05/21 LDL = 160 (No meds) Reduce fat intake On track (05/25/2021) Reduce sugar intake On track (05/25/2021) Tobacco cessation Understands and follows a low salt diet No change (09/23/2020) Understands and follows DASH diet Weight mgmt/activity No change (09/23/2020) 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 Signature Jen Bergman RN August 05, 2021 documented in this encounterVan [facility]04-25-[facility]22 Miscellaneous Notes* Telephone Encounter - TAMMY Coffey - 07/26/2021 9:58 AM EDT Left patient a VM to call and schedule a f/u,and to bring BS logs and left details about his next CT scan that janie has on his encounter. TAMMY Coffey July 26, 2021 10:00 AM * Telephone Encounter - Janie Pickett APRN.LEX - 07/23/2021 9:48 AM EDT Staff: refill sent as requested. Last visit was 10/2020, please keep next scheduled office visit. Bring blood sugar logs. Notify patient if ever getting a CT scan with dye he will need to temporarily discontinue his Metformin and to notify me if this is ever scheduled prior to his visit. Please call patient, review message, then sign encounter. * Telephone Encounter - Jen Bergman RN - 07/23/2021 9:35 AM EDT Hi Janie. Pt needs a refill on his Metformin. Refill pended. Thanks. Jen Bergman RN documented in this encounterVan [facility]04[facility]21-[facility] History of Present illness Narrative* Jen Bergman RN - 07/22/2021 3:34 PM EDT PRIMARY CARE COORDINATION FOLLOW-UP NOTE Patient identified by name and date of . YES Spoke to patient Summary: PCC called for routine f/u. States that he is "hanging in here". "Going day by day I guess". Admitsto not checking his blood sugars - encouraged to do so. Pt will try to get back to checking his sugars. States that he is taking his meds "though". Confirmed pt's DM meds. Ordered as... dulaglutide (TRULICITY) 0.75 mg/0.5 mL pen injector 30 Each 1 07/05/2021 Sig: Inject 0.75 mg subcutaneously one time a week. and insulin glargine (LANTUS SOLOSTAR, BASAGLAR KWIKPEN) 100 unit/mL (3 mL) 6 Pen 1 06/02/2021 Sig: Inject 26 Units subcutaneously daily at bedtime. and metFORMIN ER (GLUCOPHAGE XR) 500 mg 24 hr tablet 120 tablet 3 10/06/2020 Sig: Two tablets before breakfast and before supper and pioglitazone (ACTOS) 45 mg tablet 90 tablet 3 09/22/2020 Sig: Take 1 tablet by mouth once daily. Requesting a refill on Metformin - pended for PCP. Pt can't remember if he meds any other refills and states he will check w/ his pharmacy. Pt informed that on 07/06/21 his PCP wanted to notify pt thathis glucose from his lab check on 07/05/21 was 397 - verbalized understanding. Pt has an Endo appointment on 08/27/21. Reminded of his PCP appointment on 08/11/21 at 4p. No other needs today. Will call if needs airse. Goals: Active Goals - Current status as of 07/22/2021 at 3:37 PM Most Recent Address all appropriate HM and disease care gaps No change (07/22/2021) Annual BMP On track (07/22/2021) Last 07/05/21 Annual foot exam On track (07/22/2021) Annual microalbumin On track (07/22/2021) Annual retina exam On track (07/22/2021) Blood Pressure < 130/80 125/85 (07/05/2021) Confirm medication adherence of all prescribed medications and uses them correctly No change (03/24/2021) HBA1C drawn quarterly On track (07/22/2021) Hemoglobin A1C < 7 11.6 (07/05/2021) Improve your coping skills No change (10/28/2020) LDL at or below 100 mg/dL or on a high statin On track (07/22/2021) Last 07/05/21 LDL = 160 (No meds) Reduce fat intake On track (05/25/2021) Reduce sugar intake On track (05/25/2021) Tobacco cessation Understands and follows a low salt diet No change (09/23/2020) Understands and follows DASH diet Weight mgmt/activity No change (09/23/2020) 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 Signature Jen Bergman RN July 22, 2021 documented in this encounterVan [facility]04-05-[facility]22 Miscellaneous Notes* Telephone Encounter - Belgica Vega DO - 07/06/2021 6:30 PM EDT Please notify patient received the labs, blood sugar was 397. Encourage patient to take Lantus nightly. Recommend patient follow-up with endocrinology Recommend if patient feels unwell that he call 911. Can discuss results at appointment Thank you, Belgica Vega D.O. documented in this encounterVan [facility]03-31-2022 History of Present illness Narrative* Janie Pickett, CASKET UPHOLSTERER.PRODUCTION INTERN - 07/01/2021 8:41 AM EDT Subjective Important Lab History: HBA1C: 02/2020: 13.2%, 05/2020: 10.5%, 09/2020: 11.6%, 10/2020: 12.3%, 01/2021: 11.2%, 04/2021: 13%, 06/2021: 11.5% Thyroid Function Testin02/2020: TSH 1.16 (0.27-4.2 uIU/mL), 10/2020: TSH 1.05 (0.27-4.2 uIU/mL), 04/2021: TSH 1.45 (0.27-4.2 uIU/mL), Renal Function Testin07/2020: Creatinine 1.31 eGFR 56, 10/2020: Creatinine 1.31 eGFR 56, 01/2021: Creatinine 1.19, 04/2021: Creatinine 1.07 Urine for Microalbumin: 05/2020: Microalbumin:Creatinine Ratio 914, 10/2020: Microalbumin:Creatinine Ratio 457, 04/2021: Microalbumin:Creatinine Ratio 881 Lipid Profile: 05/2020: TC 228 HDL 41 LDL 127 TG 302, 10/2020: TC 228 HDL 41 LDL 127 TG 302, 04/2021: TC 259 HDL 45 LDL 147 TG 336 Liver Profile: 02/2020: Alkaline Phosphatase 117 (38-113), AST and ALT ok, 10/2020: AST ALT AlkalinePhosphatase ok, 01/2021: Alkaline Phosphatase 129 (46- 116), AST and ALT ok, 04/2021: AST ALT Alkaline Phosphatase ok Moved from [place] at some point. Was taking actos plus Metformin. Eventually Primary Care Provider Added basal insulin. 10/2020: first time office visit with Janie Pickett APRN.LEX for diabetes management. Previous diabetes related labs [facility] reviewed prior to today's office visit. Any changes made at our last diabetes management visit were abstracted accordingly (if applicable). Today's Office Visit: Orals: Actos 45 mg daily, Metformin ER 500 mg 2 tabs at breakfast and dinner, Basal insulin (dosed in units) Supper dose: lantus 14 "self monitoring blood glucose data": testing often times 2x/day, admits he won't test more than than, past weeks readings have significantly improved from baseline, most readings under 220. Not ableto get CGM covered, not on insulin 3x/day. Diet: liberal Exercise: limited Denies frequent periods of hypoglycemia I reviewed and updated the below Review of Systems for today's office visit. 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 Ahmadi FAMILY HISTORY Problem Relation Age of Onset other (Heart stroke) Mother other (Glaucoma lung cancer) Father Glaucoma Sister Glaucoma Brother Social History Tobacco Use Smoking status: Former Smoker Packs/day: 1.00 Years: 37.00 Pack years: 37.00 Types: Cigarettes Quit date: 04/03/2010 Years since quittin.2 Smokeless tobacco: Never Used Tobacco comment: Smokes [place] Vaping Use Vaping Use: Never used Substance Use Topics Alcohol use: Not Currently Drug use: Yes Types: Marijuana Comment: daily Current Meds lisinopril (ZESTRIL, PRINIVIL) 20 mg tablet Take 1 tablet by mouth once daily. insulin glargine (LANTUS SOLOSTAR, BASAGLAR KWIKPEN) 100 unit/mL (3 mL) Inject 26 Units subcutaneously daily at bedtime. clotrimazole (LOTRIMIN, CLOTRIM) 1 % cream Apply 1 application to affected area twice daily. buPROPion SR (WELLBUTRIN SR) 100 mg 12 hr tablet Take 1 tablet by mouth once daily. pantoprazole DR (PROTONIX) 40 mg tablet Take 1 tablet by mouth twice daily before meals (0600/1600). hydroCHLOROthiazide (HYDRODIURIL, ESIDRIX) 12.5 mg tablet Take 1 tablet by mouth once daily. blood sugar diagnostic (BLOOD GLUCOSE TEST) test strip 3x/day tamsulosin (FLOMAX) 0.4 mg Take 1 capsule by mouth once daily. iv contrast (will be provided with radiology test) MRI Pelvis Inject, intravenously, once for 1 dose. No IV access, insert saline lock prior to the beginning of sedation, infusion, injection of imaging exam. Discontinue saline lock post exam. If Pt has a central line or IVAD, may access for administration according to line specific nursing protocol. Once exam is complete flush line and de-access according to line specific nursing protocol in the MR contrast administration guidelines link. lidocaine (XYLOCAINE) 2 % jelly Apply 1 application to affected area three times daily. albuterol HFA (PROVENTIL HFA, VENTOLIN HFA) 90 mcg/actuation inhaler Inhale 2 Puffs as instructed every 4 hours as needed for wheezing/shortness of breath. gabapentin (NEURONTIN) 300 mg capsule Take 1 capsule by mouth three times daily for 90 days. metFORMIN ER (GLUCOPHAGE XR) 500 mg 24 hr tablet Two tablets before breakfast and before supper Blood-Glucose Meter monitoring kit For monitoring sugars 3x/day (patient on insulin) Lancets lancets Use as instructed 3x/day pioglitazone (ACTOS) 45 mg tablet Take 1 tablet by mouth once daily. Insulin [place], Disposable, (COMFORT EZ PEN NEEDLES) 29 gauge x 1/2" 1 Each once daily. alcohol swabs (ALCOHOL PREP PADS) Apply 1 application to affected area as directed. Objective There were no vitals taken for this visit. Physical Exam documented in this encounterVan [facility]12[facility] History of Past illness Narrative* Problem Noted Date Resolved Date Microscopic hematuria 03/08/2021 01/17/2022 Weakness 05/05/2020 06/15/2020 Decreased mobility and endurance 05/05/2020 06/15/2020 documented as of this encounter (statuses as of 01/17/2022) [place] [id number] History of Past illness Narrative* Problem Noted Date Resolved Date Microscopic hematuria 03/08/2021 01/17/2022 Weakness 05/05/2020 06/15/2020 Decreased mobility and endurance 05/05/2020 06/15/2020 documented as of this encounter (statuses as of 01/18/2022) [facility] of Past illness Narrative* Problem Noted Date Resolved Date Microscopic hematuria 03/08/2021 01/17/2022 Weakness 05/05/2020 06/15/2020 Decreased mobility and endurance 05/05/2020 06/15/2020 documented as of this encounter (statuses as of 01/18/2022) [facility] of Past illness Narrative* Problem Noted Date Resolved Date Weakness 05/05/2020 06/15/2020 Decreased mobility and endurance 05/05/2020 06/15/2020 documented as of this encounter (statuses as of 07/01/2021) [facility] of Past illness Narrative* Problem Noted Date Resolved Date Weakness 05/05/2020 06/15/2020 Decreased mobility and endurance 05/05/2020 06/15/2020 documented as of this encounter (statuses as of 07/06/2021) [facility] of Past illness Narrative* Problem Noted Date Resolved Date Weakness 05/05/2020 06/15/2020 Decreased mobility and endurance 05/05/2020 06/15/2020 documented as of this encounter (statuses as of 07/22/2021) [facility] of Past illness Narrative* Problem Noted Date Resolved Date Weakness 05/05/2020 06/15/2020 Decreased mobility and endurance 05/05/2020 06/15/2020 documented as of this encounter (statuses as of 07/26/2021) [facility]02-02-2021 History of Past illness Narrative* Problem Noted Date Resolved Date Weakness 05/05/2020 06/15/2020 Decreased mobility and endurance 05/05/2020 06/15/2020 documented as of this encounter (statuses as of 08/05/2021) [facility]02-02-2021 History of Past illness Narrative* Problem Noted Date Resolved Date Weakness 05/05/2020 06/15/2020 Decreased mobility and endurance 05/05/2020 06/15/2020 documented as of this encounter (statuses as of 08/10/2021) [facility]02-02-2021 History of Past illness Narrative* Problem Noted Date Resolved Date Weakness 05/05/2020 06/15/2020 Decreased mobility and endurance 05/05/2020 06/15/2020 documented as of this encounter (statuses as of 08/11/2021) [address]02-2021 History of Past illness Narrative* Problem Noted Date Resolved Date Weakness 05/05/2020 06/15/2020 Decreased mobility and endurance 05/05/2020 06/15/2020 documented as of this encounter (statuses as of 08/13/2021) [facility]02-02-2021 History of Past illness Narrative* Problem Noted Date Resolved Date Weakness 05/05/2020 06/15/2020 Decreased mobility and endurance 05/05/2020 06/15/2020 documented as of this encounter (statuses as of 08/27/2021) [facility]02-02-2021 History of Past illness Narrative* Problem Noted Date Resolved Date Weakness 05/05/2020 06/15/2020 Decreased mobility and endurance 05/05/2020 06/15/2020 documented as of this encounter (statuses as of 09/06/2021) [facility]-02-2021 History of Past illness Narrative* Problem Noted Date Resolved Date Weakness 05/05/2020 06/15/2020 Decreased mobility and endurance 05/05/2020 06/15/2020 documented as of this encounter (statuses as of 09/08/2021) [facility]02-02-2021 History of Past illness Narrative* Problem Noted Date Resolved Date Weakness 05/05/2020 06/15/2020 Decreased mobility and endurance 05/05/2020 06/15/2020 documented as of this encounter (statuses as of 09/17/2021) [facility]02-02-2021 History of Past illness Narrative* Problem Noted Date Resolved Date Weakness 05/05/2020 06/15/2020 Decreased mobility and endurance 05/05/2020 06/15/2020 documented as of this encounter (statuses as of 09/20/2021) [facility]-02-2021 History of Past illness Narrative* Problem Noted Date Resolved Date Weakness 05/05/2020 06/15/2020 Decreased mobility and endurance 05/05/2020 06/15/2020 documented as of this encounter (statuses as of 09/20/2021) [facility]02-2021 History of Past illness Narrative* Problem Noted Date Resolved Date Weakness 05/05/2020 06/15/2020 Decreased mobility and endurance 05/05/2020 06/15/2020 documented as of this encounter (statuses as of 10/05/2021) [facility]2021 History of Past illness Narrative* Problem Noted Date Resolved Date Weakness 05/05/2020 06/15/2020 Decreased mobility and endurance 05/05/2020 06/15/2020 documented as of this encounter (statuses as of 10/05/2021) [facility]02-2021 History of Past illness Narrative* Problem Noted Date Resolved Date Weakness 05/05/2020 06/15/2020 Decreased mobility and endurance 05/05/2020 06/15/2020 documented as of this encounter (statuses as of 10/14/2021) [facility]02-2021 History of Past illness Narrative* Problem Noted Date Resolved Date Weakness 05/05/2020 06/15/2020 Decreased mobility and endurance 05/05/2020 06/15/2020 documented as of this encounter (statuses as of 10/26/2021) [facility]02[facility]2021 History of Past illness Narrative* Problem Noted Date Resolved Date Weakness 05/05/2020 06/15/2020 Decreased mobility and endurance 05/05/2020 06/15/2020 documented as of this encounter (statuses as of 10/27/2021) [facility]2021 History of Past illness Narrative* Problem Noted Date Resolved Date Weakness 05/05/2020 06/15/2020 Decreased mobility and endurance 05/05/2020 06/15/2020 documented as of this encounter (statuses as of 11/01/2021) [facility]02[facility]2021 History of Past illness Narrative* Problem Noted Date Resolved Date Weakness 05/05/2020 06/15/2020 Decreased mobility and endurance 05/05/2020 06/15/2020 documented as of this encounter (statuses as of 11/05/2021) [facility]2021 History of Past illness Narrative* Problem Noted Date Resolved Date Weakness 05/05/2020 06/15/2020 Decreased mobility and endurance 05/05/2020 06/15/2020 documented as of this encounter (statuses as of 11/09/2021) [facility]2021 History of Past illness Narrative* Problem Noted Date Resolved Date Weakness 05/05/2020 06/15/2020 Decreased mobility and endurance 05/05/2020 06/15/2020 documented as of this encounter (statuses as of 11/18/2021) [facility]2021 History of Past illness Narrative* Problem Noted Date Resolved Date Weakness 05/05/2020 06/15/2020 Decreased mobility and endurance 05/05/2020 06/15/2020 documented as of this encounter (statuses as of 11/22/2021) [facility]02[facility]2021 History of Past illness Narrative* Problem Noted Date Resolved Date Weakness 05/05/2020 06/15/2020 Decreased mobility and endurance 05/05/2020 06/15/2020 documented as of this encounter (statuses as of 11/30/2021) [facility]02[facility]2021 History of Past illness Narrative* Problem Noted Date Resolved Date Weakness 05/05/2020 06/15/2020 Decreased mobility and endurance 05/05/2020 06/15/2020 documented as of this encounter (statuses as of 12/03/2021) [facility]2021 History of Past illness Narrative* Problem Noted Date Resolved Date Weakness 05/05/2020 06/15/2020 Decreased mobility and endurance 05/05/2020 06/15/2020 documented as of this encounter (statuses as of 12/20/2021) [facility]2021 History of Past illness Narrative* Problem Noted Date Resolved Date Weakness 05/05/2020 06/15/2020 Decreased mobility and endurance 05/05/2020 06/15/2020 documented as of this encounter (statuses as of 12/28/2021) [facility]02[facility]2021 History of Past illness Narrative* Problem Noted Date Resolved Date Weakness 05/05/2020 06/15/2020 Decreased mobility and endurance 05/05/2020 06/15/2020 documented as of this encounter (statuses as of 01/04/2022) [facility]2021 History of Past illness Narrative* Problem Noted Date Resolved Date Weakness 05/05/2020 06/15/2020 Decreased mobility and endurance 05/05/2020 06/15/2020 documented as of this encounter (statuses as of 01/07/2022) [facility]2021 History of Past illness Narrative* Problem Noted Date Resolved Date Weakness 05/05/2020 06/15/2020 Decreased mobility and endurance 05/05/2020 06/15/2020 documented as of this encounter (statuses as of 01/14/2022) [facility]2021 History of Past illness Narrative* Problem Noted Date Resolved Date Weakness 05/05/2020 06/15/2020 Decreased mobility and endurance 05/05/2020 06/15/2020 documented as of this encounter (statuses as of 01/14/2022) [facility]2021 History of Past illness Narrative* Problem Noted Date Diagnosed Date Resolved Date Weakness 05/05/2020 06/15/2020 Decreased mobility and endurance 05/05/2020 06/15/2020 documented as of this encounter (statuses as of 02/07/2023) [facility] Malignant neoplasm of rectosigmoid junction (HCC) Mal[facility]igmoid [facility] Diabetes mellitus due to underlying condition, uncontrolled, with hyperglycemia (HCC)- Primary Microalbuminuria Proteinuria Hypertension, essential Unspecified essential hypertension Bilateral leg edema Edema MEKHI (obstructive sleep apnea) Obstructive sleep apnea (adult) (pediatric) Vitamin D deficiency Unspecified vitamin D deficiency Mixed hyperlipidemia Elevated alkaline phosphatase level Other nonspecific abnormal serum enzyme levels Elevated serum creatinine Other nonspecific findings on examination of blood Hyperkalemia Hyperpotassemia 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 Malignant neoplasm of rectum (HCC) Malignant neoplasm of rectum Benign prostatic hyperplasia, unspecified whether lower urinary tract symptoms present Anxiety and depression Dysthymic disorder Marijuana use Cannabis abuse, unspecified H/O medication noncompliance Personal history of noncompliance with medical treatment, presenting hazards to health Uncontrolled hypertension Unspecified essential hypertension [facility] follow-up- Primary Other follow-up examination Abscess of neck Cellulitis and abscess of neck Diabetes mellitus due to underlying condition, uncontrolled, with hyperglycemia (HCC) H/O medication noncompliance Personal history of noncompliance with medical treatment, presenting hazards to health Elevated serum creatinine Other nonspecific findings on examination of blood Elevated alkaline phosphatase level Other nonspecific abnormal serum enzyme levels Hyponatremia Hyposmolality and/or hyponatremia Microalbuminuria Proteinuria Hypertension, essential Unspecified essential hypertension Bilateral leg edema Edema MEKHI (obstructive sleep apnea) Obstructive sleep apnea (adult) (pediatric) Vitamin D deficiency Unspecified vitamin D deficiency Mixed hyperlipidemia Hyperkalemia Hyperpotassemia 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 Malignant neoplasm of rectum (HCC) Malignant neoplasm of rectum Benign prostatic hyperplasia, unspecified whether lower urinary tract symptoms present Anxiety and depression Dysthymic disorder Marijuana use Cannabis abuse, unspecified Screening for diabetic retinopathy Screening for other eye conditions [facility] Diagnosis Abscess of neck- Primary Cellulitis and abscess of neck Diabetes mellitus due to underlying condition, uncontrolled, with hyperglycemia (HCC) H/O medication noncompliance Personal history of noncompliance with medical treatment, presenting hazards to health Elevated serum creatinine Other nonspecific findings on examination of blood Elevated alkaline phosphatase level Other nonspecific abnormal serum enzyme levels Hyponatremia Hyposmolality and/or hyponatremia Microalbuminuria Proteinuria Hypertension, essential Unspecified essential hypertension Bilateral leg edema Edema Vitamin D deficiency Unspecified vitamin D deficiency Mixed hyperlipidemia MEKHI (obstructive sleep apnea) Obstructive sleep apnea (adult) (pediatric) Hyperkalemia Hyperpotassemia 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 Malignant neoplasm of rectum (HCC) Malignant neoplasm of rectum Benign prostatic hyperplasia, unspecified whether lower urinary tract symptoms present Anxiety and depression Dysthymic disorder Marijuana use Cannabis abuse, unspecified Diarrhea, unspecified type Uncontrolled hypertension Unspecified essential hypertension Obesity, Class II, BMI 35-39.9 Obesity, unspecified [facility] Diagnosis Benign prostatic hyperplasia with nocturia- Primary Hematuria, microscopic Microscopic hematuria Screening PSA (prostate specific antigen) Special screening for malignant neoplasm of prostate Nocturia [facility] Diagnosis Hypertension, essential- Primary Unspecified essential hypertension Bilateral leg edema Edema Diabetes mellitus due to underlying condition, uncontrolled, with hyperglycemia (HCC) H/O medication noncompliance Personal history of noncompliance with medical treatment, presenting hazards to health Elevated serum creatinine Other nonspecific findings on examination of blood Microalbuminuria Proteinuria Hyponatremia Hyposmolality and/or hyponatremia Vitamin D deficiency Unspecified vitamin D deficiency Mixed hyperlipidemia MEKHI (obstructive sleep apnea) Obstructive sleep apnea (adult) (pediatric) 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 Malignant neoplasm of rectum (HCC) Malignant neoplasm of rectum Benign prostatic hyperplasia, unspecified whether lower urinary tract symptoms present Anxiety and depression Dysthymic disorder Marijuana use Cannabis abuse, unspecified Diarrhea, unspecified type Obesity, Class II, BMI 35-39.9 Obesity, unspecified Glaucoma suspect of both eyes Preglaucoma, 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 associated with diabetes mellitus of other type (HCC) Nuclear senile cataract of both eyes [facility] Diagnosis Glaucoma suspect of both eyes- Primary Preglaucoma, 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 without macular edema associated with type 2 diabetes mellitus (HCC) Nuclear senile cataract of both eyes [facility] Diagnosis Hypertension, essential- Primary Unspecified essential hypertension Bilateral leg edema Edema Diabetes mellitus due to underlying condition, uncontrolled, with hyperglycemia ([facility]) H/O medication noncompliance Personal history of noncompliance with medical treatment, presenting hazards to health Elevated serum creatinine Other nonspecific findings on examination of blood Microalbuminuria Proteinuria Hyponatremia Hyposmolality and/or hyponatremia Vitamin D deficiency Unspecified vitamin D deficiency MEKHI (obstructive sleep apnea) Obstructive sleep apnea (adult) (pediatric) Mixed hyperlipidemia 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 Malignant neoplasm of rectum (HCC) Malignant neoplasm of rectum Benign prostatic hyperplasia, unspecified whether lower urinary tract symptoms present Anxiety and depression Dysthymic disorder Marijuana use Cannabis abuse, unspecified Obesity, Class II, BMI 35-39.9 Obesity, unspecified Glaucoma suspect of both eyes Preglaucoma, 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 associated with diabetes mellitus of other type (HCC) Difficulty controlling anger Oppositional defiant disorder with chronic irritability and anger Nuclear senile cataract of both eyes Nuclear sclerosis of right eye [facility] Stage 3a chronic kidney disease (HCC)- Primary Type 2 diabetes mellitus with stage 3a chronic kidney disease, with long-term current use of insulin (HCC) Hypertension, essential Unspecified essential hypertension Mixed hyperlipidemia Chronic bilateral low back pain with left-sided sciatica Marijuana use Cannabis abuse, unspecified Vitamin D deficiency Unspecified vitamin D deficiency Obesity, Class II, BMI 35-39.9 Obesity, unspecified Severe episode of recurrent major depressive disorder, without psychotic features ([facility]) [facility] Diagnosis Current moderate episode of major depressive disorder without prior episode (HCC)- Primary documented in this encounter [facility]* Diagnosis Episode of recurrent major depressive disorder, unspecified depression episode severity (HCC)- Primary documented in this encounter [facility] note* Diagnosis Hypertension, essential- Primary Unspecified essential hypertension Bilateral leg edema Edema Diabetes mellitus due to underlying condition, uncontrolled, with hyperglycemia ([facility]) H/O medication noncompliance Personal history of noncompliance with medical treatment, presenting hazards to health Microalbuminuria Proteinuria Hyponatremia Hyposmolality and/or hyponatremia Vitamin D deficiency Unspecified vitamin D deficiency MEKHI (obstructive sleep apnea) Obstructive sleep apnea (adult) (pediatric) Mixed hyperlipidemia 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 Malignant neoplasm of rectum (HCC) Malignant neoplasm of rectum Benign prostatic hyperplasia, unspecified whether lower urinary tract symptoms present Anxiety and depression Dysthymic disorder Marijuana use Cannabis abuse, unspecified Obesity, Class II, BMI 35-39.9 Obesity, unspecified Mood disorder (HCC) Unspecified episodic mood disorder Stage 3a chronic kidney disease ([facility]) Encounter for immunization Need for other specified prophylactic vaccination against single bacterial disease documented in this encounter [facility] note* Diagnosis Needs assistance with community resources- Primary Distressed about housing issues Other specified housing or economic circumstances documented in this encounter [facility] note* Diagnosis Hospital discharge follow-up- Primary Other follow-up examination Hyperglycemia Other abnormal glucose Nausea and vomiting, unspecified vomiting type Marijuana use Cannabis abuse, unspecified 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 Hypertension, essential Unspecified essential hypertension Bilateral leg edema Edema Diabetes mellitus due to underlying condition, uncontrolled, with hyperglycemia ([facility]) H/O medication noncompliance Personal history of noncompliance with medical treatment, presenting hazards to health Microalbuminuria Proteinuria Hyponatremia Hyposmolality and/or hyponatremia Vitamin D deficiency Unspecified vitamin D deficiency MEKHI (obstructive sleep apnea) Obstructive sleep apnea (adult) (pediatric) Mixed hyperlipidemia Malignant neoplasm of rectum (HCC) Malignant neoplasm of rectum Benign prostatic hyperplasia, unspecified whether lower urinary tract symptoms present Obesity, Class II, BMI 35-39.9 Obesity, unspecified Anxiety and depression Dysthymic disorder Stage 3a chronic kidney disease (HCC) Type 2 diabetes mellitus with stage 3a chronic kidney disease, with long-term current use of insulin (HCC) Diabetes mellitus due to underlying condition with hyperglycemia, with long-term current use of insulin (HCC) [facility] Diagnosis Nocturia Screening PSA (prostate specific antigen) Special screening for malignant neoplasm of prostate Hematuria, microscopic Microscopic hematuria Benign prostatic hyperplasia with nocturia [facility] Diagnosis Hypertension, essential- Primary Unspecified essential hypertension Bilateral leg edema Edema Diabetes mellitus due to underlying condition, uncontrolled, with hyperglycemia (HCC) H/O medication noncompliance Personal history of noncompliance with medical treatment, presenting hazards to health Microalbuminuria Proteinuria Hyponatremia Hyposmolality and/or hyponatremia Vitamin D deficiency Unspecified vitamin D deficiency Mixed hyperlipidemia MEKHI (obstructive sleep apnea) Obstructive sleep apnea (adult) (pediatric) Obesity, Class II, BMI 35-39.9 Obesity, unspecified Stage 3a chronic kidney disease (HCC) Marijuana use Cannabis abuse, unspecified 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 Malignant neoplasm of rectum (HCC) Malignant neoplasm of rectum Mood disorder (HCC) Unspecified episodic mood disorder Anxiety and depression Dysthymic disorder Benign prostatic hyperplasia, unspecified whether lower urinary tract symptoms present Glaucoma suspect of both eyes Preglaucoma, 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 associated with diabetes mellitus of other type (HCC) Nuclear senile cataract of both eyes Nausea and vomiting, unspecified vomiting type [facility] Diagnosis History of rectal cancer- Primary Personal history of malignant neoplasm of rectum, rectosigmoid junction, and anus Pulmonary nodules Other nonspecific abnormal finding of lung field Hip pain Pain in joint, pelvic region and thigh Spinal stenosis of lumbar region with neurogenic claudication Spinal stenosis, lumbar region, with neurogenic claudication [facility] Diagnosis OPENED IN ERROR- Primary To allow closing an encounter opened in error (used in Smart[employer]) [facility] Diagnosis Hypertension, essential- Primary Unspecified essential hypertension Bilateral leg edema Edema Diabetes mellitus due to underlying condition, uncontrolled, with hyperglycemia (HCC) H/O medication noncompliance Personal history of noncompliance with medical treatment, presenting hazards to health Microalbuminuria Proteinuria Hyponatremia Hyposmolality and/or hyponatremia Vitamin D deficiency Unspecified vitamin D deficiency Mixed hyperlipidemia MEKHI (obstructive sleep apnea) Obstructive sleep apnea (adult) (pediatric) Obesity, Class II, BMI 35-39.9 Obesity, unspecified Stage 3a chronic kidney disease (HCC) Marijuana use Cannabis abuse, unspecified 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 Malignant neoplasm of rectum (HCC) Malignant neoplasm of rectum Anxiety and depression Dysthymic disorder Benign prostatic hyperplasia, unspecified whether lower urinary tract symptoms present Pulmonary nodule, right Solitary pulmonary nodule Bilateral lower extremity edema Edema [facility] Diagnosis Pain in hip- Primary Pain in joint, pelvic region and thigh Lumbar back pain with radiculopathy affecting lower extremity Chronic left hip pain Pain in joint, pelvic region and thigh [facility] Diagnosis Nuclear senile cataract of both eyes- Primary Pain of left hip [facility] Diagnosis Encounter for annual physical exam- Primary Hypertension, essential Unspecified essential hypertension Bilateral leg edema Edema Mixed hyperlipidemia Diabetes mellitus due to underlying condition, uncontrolled, with hyperglycemia (HCC) H/O medication noncompliance Personal history of noncompliance with medical treatment, presenting hazards to health Microalbuminuria Proteinuria Hyponatremia Hyposmolality and/or hyponatremia Vitamin D deficiency Unspecified vitamin D deficiency MEKHI (obstructive sleep apnea) Obstructive sleep apnea (adult) (pediatric) Obesity, Class II, BMI 35-39.9 Obesity, unspecified Stage 3a chronic kidney disease (HCC) History of BPH Personal history of other specified diseases Marijuana use Cannabis abuse, unspecified 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 Malignant neoplasm of rectum (HCC) Malignant neoplasm of rectum Anxiety and depression Dysthymic disorder 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 associated with diabetes mellitus of other type (HCC) Nuclear senile cataract of both eyes Screening for prostate cancer Special screening for malignant neoplasm of prostate Screening for thyroid disorder Screening for deficiency anemia Screening for other and unspecified deficiency anemia Encounter for immunization Need for other specified prophylactic vaccination against single bacterial disease Diabetic peripheral neuropathy associated with type 2 diabetes mellitus (HCC) Type II or unspecified type diabetes mellitus with neurological manifestations, not stated as uncontrolled Onychomycosis Dermatophytosis of nail Nuclear senile cataract of left eye Pain of left hip Nuclear senile cataract of right eye [facility] Diagnosis Chronic left hip pain Pain in joint, pelvic region and thigh Nuclear senile cataract of right eye [facility] Diagnosis Chronic left hip pain Pain in joint, pelvic region and thigh Nuclear senile cataract of right [facility] History of rectal cancer- Primary Personal history of malignant neoplasm of rectum, rectosigmoid junction, and anus Nuclear senile cataract of right eye [facility] Diagnosis Lumbar back pain with radiculopathy affecting lower extremity- Primary Chronic left hip pain Pain in joint, pelvic region and thigh Spinal stenosis of lumbar region, unspecified whether neurogenic claudication present Lumbar radiculopathy Thoracic or lumbosacral neuritis or radiculitis, unspecified Chronic bilateral low back pain with left-sided sciatica Nuclear senile cataract of right eye [facility] Diagnosis Pseudophakia of both eyes- Primary Lens replaced by other means [facility] Diagnosis Lumbar back pain with radiculopathy affecting lower extremity- Primary Chronic bilateral low back pain with left-sided sciatica Lumbar back pain with radiculopathy affecting lower extremity- Primary [facility] Diagnosis Hospital discharge follow-up- Primary Other follow-up examination Chronic bilateral low back pain with left-sided sciatica Spinal stenosis of lumbar region with neurogenic claudication Spinal stenosis, lumbar region, with neurogenic claudication Nausea and vomiting in adult Nausea with vomiting Myocardial infarction due to demand ischemia (HCC) Stage 3 chronic kidney disease, unspecified whether stage 3a or 3b CKD (HCC) Diabetes mellitus due to underlying condition, uncontrolled, with hyperglycemia (HCC) Hyponatremia Hyposmolality and/or hyponatremia Hypertension, essential Unspecified essential hypertension Bilateral leg edema Edema Mixed hyperlipidemia Microalbuminuria Proteinuria H/O medication noncompliance Personal history of noncompliance with medical treatment, presenting hazards to health Vitamin D deficiency Unspecified vitamin D deficiency MEKHI (obstructive sleep apnea) Obstructive sleep apnea (adult) (pediatric) Obesity, Class II, BMI 35-39.9 Obesity, unspecified Marijuana use Cannabis abuse, unspecified History of BPH Personal history of other specified diseases 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 Malignant neoplasm of rectum (HCC) Malignant neoplasm of rectum Anxiety and depression Dysthymic disorder Chronic left hip pain Pain in joint, pelvic region and thigh Lumbar radiculopathy Thoracic or lumbosacral neuritis or radiculitis, unspecified Hidradenitis suppurativa Hidradenitis Cutaneous abscess of abdominal wall Cellulitis and abscess of trunk Stage 3a chronic kidney disease (HCC) Lumbar back pain with radiculopathy affecting lower extremity- Primary [facility] Pain in left hip- Primary Pain in joint, pelvic region and thigh [facility] Diagnosis Precordial pain- Primary OTT (dyspnea on exertion) Other dyspnea and respiratory abnormality Primary hypertension Unspecified essential hypertension Dyslipidemia Other and unspecified hyperlipidemia Demand ischemia (HCC) Other acute and subacute form of ischemic heart disease [facility] Diagnosis Nocturia- Primary Benign prostatic hyperplasia with nocturia [facility] Diagnosis Cutaneous abscess of abdominal wall- Primary Cellulitis and abscess of trunk Hidradenitis suppurativa Hidradenitis Malignant neoplasm of rectum (HCC) Malignant neoplasm of rectum Diabetes mellitus due to underlying condition, uncontrolled, with hyperglycemia (HCC) H/O medication noncompliance Personal history of noncompliance with medical treatment, presenting hazards to health Precordial pain OTT (dyspnea on exertion) Other dyspnea and respiratory abnormality Microhematuria Microscopic hematuria Lower urinary tract symptoms (LUTS) Other symptoms involving urinary system History of colonic polyps Personal history of colonic polyps Chronic bilateral low back pain with left-sided sciatica Spinal stenosis of lumbar region with neurogenic claudication Spinal stenosis, lumbar region, with neurogenic claudication Chronic left hip pain Pain in joint, pelvic region and thigh Lumbar radiculopathy Thoracic or lumbosacral neuritis or radiculitis, unspecified Mixed hyperlipidemia Hypertension, essential Unspecified essential hypertension [facility] Diagnosis OTT (dyspnea on exertion) Other dyspnea and respiratory abnormality [facility] Diagnosis Precordial pain OTT (dyspnea on exertion) Other dyspnea and respiratory abnormality Primary hypertension Unspecified essential hypertension [facility] Diagnosis Hypertension, essential- Primary Unspecified essential hypertension Bilateral leg edema Edema Diabetes mellitus due to underlying condition, uncontrolled, with hyperglycemia (HCC) Mixed hyperlipidemia Vitamin D deficiency Unspecified vitamin D deficiency H/O medication noncompliance Personal history of noncompliance with medical treatment, presenting hazards to health Hyponatremia Hyposmolality and/or hyponatremia Elevated alkaline phosphatase level Other nonspecific abnormal serum enzyme levels Stage 3 chronic kidney disease, unspecified whether stage 3a or 3b CKD (HCC) BPH associated with nocturia Hypertrophy of prostate with urinary obstruction and other lower urinary tract symptoms (LUTS) Mild mitral regurgitation by prior echocardiogram Mitral valve disorders Mild tricuspid regurgitation by prior echocardiogram Diseases of tricuspid valve Malignant neoplasm of rectum (HCC) Malignant neoplasm of rectum Chronic pain syndrome Cancer associated pain Neoplasm related pain (acute) (chronic) Marijuana abuse Cannabis abuse, unspecified Primary osteoarthritis of both hips Primary localized osteoarthrosis, pelvic region and thigh Rectal pain, chronic Anal or rectal pain Chronic bilateral low back pain with left-sided sciatica Spinal stenosis of lumbar region with neurogenic claudication Spinal stenosis, lumbar region, with neurogenic claudication Chronic left hip pain Pain in joint, pelvic region and thigh Lumbar radiculopathy Thoracic or lumbosacral neuritis or radiculitis, unspecified [facility] Diagnosis Primary osteoarthritis of left hip- Primary Primary localized osteoarthrosis, pelvic region and thigh Primary osteoarthritis of left hip Primary localized osteoarthrosis, pelvic region and thigh [facility] Diagnosis Poorly controlled type 2 diabetes mellitus (HCC) Type II or unspecified type diabetes mellitus without mention of complication, not stated as uncontrolled [facility] Diagnosis Anemia of renal disease- Primary Anemia in chronic kidney disease Stage 3b chronic kidney disease (HCC) Vitamin D deficiency Unspecified vitamin D deficiency Other proteinuria [facility] Diagnosis Nocturia- Primary Benign prostatic hyperplasia with nocturia Screening PSA (prostate specific antigen) Special screening for malignant neoplasm of prostate [facility] Diagnosis Type 2 diabetes mellitus with both eyes affected by moderate nonproliferative retinopathy without macular edema, with long-term current use of insulin (HCC)- Primary Pseudophakia of both eyes Lens replaced by other means [facility] Diagnosis Anemia of renal disease- Primary Anemia in chronic kidney disease Stage 3b chronic kidney disease (HCC) Vitamin D deficiency Unspecified vitamin D deficiency Other proteinuria 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) Type II or unspecified type diabetes mellitus with renal manifestations, not stated as uncontrolled Dietary counseling and surveillance Dietary surveillance and counseling Hyperkalemia Hyperpotassemia Hypertension, essential Unspecified essential hypertension Hyperuricemia Other abnormal blood chemistry Secondary renal hyperparathyroidism (HCC) Secondary hyperparathyroidism (of renal origin) [facility] Diagnosis History of rectal cancer- Primary Personal history of malignant neoplasm of rectum, rectosigmoid junction, and anus documented in this encounter [facility]* Diagnosis Other specified postprocedural states- Primary Spinal stenosis, lumbar region with neurogenic claudication documented in this encounter [facility]* Diagnosis Pre-op examination- Primary Preoperative examination, unspecified History of rectal cancer Personal history of malignant neoplasm of rectum, rectosigmoid junction, and anus Pre-op examination Preoperative examination, unspecified MEKHI (obstructive sleep apnea) Obstructive sleep apnea (adult) (pediatric) Stage 3b chronic kidney disease (HCC) Nicotine use disorder, F17.2 Tobacco use disorder Mixed hyperlipidemia Marijuana use Cannabis abuse, unspecified Hypertension, unspecified type Obesity, Class II, BMI 35-39.9 Obesity, unspecified Type 2 diabetes mellitus with stage 3b chronic kidney disease, with long-term current use of insulin (HCC) Hyperlipidemia, unspecified hyperlipidemia type Alcohol dependence with unspecified alcohol-induced disorder (HCC) Hyperkalemia Hyperpotassemia Nicotine use disorder, F17.2 Tobacco use disorder Alcohol dependence (HCC) Other and unspecified alcohol dependence, unspecified drinking behavior HLD (hyperlipidemia) Other and unspecified hyperlipidemia HTN (hypertension) Unspecified essential hypertension Marijuana use Cannabis abuse, unspecified Mixed hyperlipidemia Stage 3b chronic kidney disease (HCC) Type 2 diabetes mellitus with stage 3b chronic kidney disease, with long-term current use of insulin (HCC) Obesity, Class II, BMI 35-39.9 Obesity, unspecified MEKHI (obstructive sleep apnea) Obstructive sleep apnea (adult) (pediatric) Hyperkalemia Hyperpotassemia * Assessment & Plan Note - Rebecca Corey APRN.CNP - 05/13/2024 11:21 AM EST Associated Problem(s): Hyperkalemia Recent K (04/26) 6.2 with no redraw in Epic. POC drawn in perioperative area was 4.4. Dr. Yancey of anesthesia aware and patient okay to proceed with procedure. * Assessment & Plan Note - Rebecca Corey APRN.CNP - 05/13/2024 11:12 AM EST Associated Problem(s): Alcohol dependence (HCC) Patient and sister deny this. Patient states that he was a heavier drinking when he was "younger". Denies any recent use of alcohol. * Assessment & Plan Note - Rebecca Corey APRN.CNP - 05/13/2024 11:11 AM EST Associated Problem(s): HLD (hyperlipidemia) No medication. Diet and lifestyle modification. * Assessment & Plan Note - Rebecca Corey APRN.CNP - 05/13/2024 11:10 AM EST Associated Problem(s): Type 2 diabetes mellitus with stage 3b chronic kidney disease, with long-term current use of insulin (HCC) Farxiga, Humalog, Glargine, and Ozempic. Continue as prescribed. BS 128 on POC in perioperative area. Sister states that patient is very non-compliant with medication regimen. Hemoglobin A1C (%) Date Value 10/06/2023 6.0 Hemoglobin A1C (POCT) (%) Date Value 05/23/2023 13.9 * Assessment & Plan Note - Rebecca Corey APRN.CNP - 05/13/2024 11:09 AM EST Associated Problem(s): Obesity, Class II, BMI 35-39.9 BMI 35.58 * Assessment & Plan Note - Rebecca Corey APRN.CNP - 05/13/2024 11:09 AM EST Associated Problem(s): HTN (hypertension) Amlodipine and Carvedilol. Continue as prescribed. Patient and sister are unsure of exact medications. * Assessment & Plan Note - Rebecca Corey APRN.CNP - 05/13/2024 11:08 AM EST Associated Problem(s): Marijuana use Daily marijuana use. Denies use prior to arrival for procedure. * Assessment & Plan Note - Rebecca Corey APRN.CNP - 05/13/2024 11:08 AM EST Associated Problem(s): Mixed hyperlipidemia No medication. Patient and sister are unsure of exact medications. * Assessment & Plan Note - Rebecca Corey APRN.CNP - 05/13/2024 11:06 AM EST Associated Problem(s): Nicotine use disorder, F17.2 Former cigarette smoker. Quit in 2010. * Assessment & Plan Note - Rebecca Corey APRN.CNP - 05/13/2024 11:06 AM EST Associated Problem(s): Stage 3b chronic kidney disease (HCC) Creatinine Date Value Ref Range Status 04/26/2024 3.41 (H) 0.73 - 1.22 mg/dL Final BUN Date Value Ref Range Status 04/26/2024 59 (H) 9 - 24 mg/dL Final Estimated Glomerular Filtration Rate: 19.3 mL/min/1.73m2 (A) (by CKD-EPI based on SCr of 3.41 mg/dL(H)). * Assessment & Plan Note - Rebecca Corey APRN.CNP - 05/13/2024 11:04 AM EST Associated Problem(s): MEKHI (obstructive sleep apnea) Patient states that he does not have a machine. * Assessment & Plan Note - Rebecca Corey APRN.CNP - 05/13/2024 10:58 AM EST Associated Problem(s): Pre-op examination see note for medical conditions which may affect jessica-operative course that were addressed at today's visit. [facility] Diagnosis Pre-op examination- Primary Preoperative examination, unspecified History of rectal cancer Personal history of malignant neoplasm of rectum, rectosigmoid junction, and anus Pre-op examination Preoperative examination, unspecified MEKHI (obstructive sleep apnea) Obstructive sleep apnea (adult) (pediatric) Stage 3b chronic kidney disease (HCC) Nicotine use disorder, F17.2 Tobacco use disorder Mixed hyperlipidemia Marijuana use Cannabis abuse, unspecified Hypertension, unspecified type Obesity, Class II, BMI 35-39.9 Obesity, unspecified Type 2 diabetes mellitus with stage 3b chronic kidney disease, with long-term current use of insulin (HCC) Hyperlipidemia, unspecified hyperlipidemia type Alcohol dependence with unspecified alcohol-induced disorder (HCC) Hyperkalemia Hyperpotassemia Nicotine use disorder, F17.2 Tobacco use disorder Alcohol dependence (HCC) Other and unspecified alcohol dependence, unspecified drinking behavior HLD (hyperlipidemia) Other and unspecified hyperlipidemia HTN (hypertension) Unspecified essential hypertension Marijuana use Cannabis abuse, unspecified Mixed hyperlipidemia Stage 3b chronic kidney disease (HCC) Type 2 diabetes mellitus with stage 3b chronic kidney disease, with long-term current use of insulin (HCC) Obesity, Class II, BMI 35-39.9 Obesity, unspecified MEKHI (obstructive sleep apnea) Obstructive sleep apnea (adult) (pediatric) Hyperkalemia Hyperpotassemia Anemia of renal disease- Primary Anemia in chronic kidney disease Stage 3b chronic kidney disease (HCC) Vitamin D deficiency Unspecified vitamin D deficiency Other proteinuria Chronic kidney disease-mineral and bone disorder [facility]* Diagnosis Pre-op examination- Primary Preoperative examination, unspecified History of rectal cancer Personal history of malignant neoplasm of rectum, rectosigmoid junction, and anus Pre-op examination Preoperative examination, unspecified MEKHI (obstructive sleep apnea) Obstructive sleep apnea (adult) (pediatric) Stage 3b chronic kidney disease (HCC) Nicotine use disorder, F17.2 Tobacco use disorder Mixed hyperlipidemia Marijuana use Cannabis abuse, unspecified Hypertension, unspecified type Obesity, Class II, BMI 35-39.9 Obesity, unspecified Type 2 diabetes mellitus with stage 3b chronic kidney disease, with long-term current use of insulin (HCC) Hyperlipidemia, unspecified hyperlipidemia type Alcohol dependence with unspecified alcohol-induced disorder (HCC) Hyperkalemia Hyperpotassemia Nicotine use disorder, F17.2 Tobacco use disorder Alcohol dependence (HCC) Other and unspecified alcohol dependence, unspecified drinking behavior HLD (hyperlipidemia) Other and unspecified hyperlipidemia HTN (hypertension) Unspecified essential hypertension Marijuana use Cannabis abuse, unspecified Mixed hyperlipidemia Stage 3b chronic kidney disease (HCC) Type 2 diabetes mellitus with stage 3b chronic kidney disease, with long-term current use of insulin (HCC) Obesity, Class II, BMI 35-39.9 Obesity, unspecified MEKHI (obstructive sleep apnea) Obstructive sleep apnea (adult) (pediatric) Hyperkalemia Hyperpotassemia CKD stage G5/A3, GFR <15 and albumin creatinine ratio >300 mg/g (HCC)- Primary Chronic kidney disease, Stage V TARYN (acute kidney injury) Acute kidney failure, unspecified Anemia of renal disease Anemia in chronic kidney disease Stage 5 chronic kidney disease not on chronic dialysis (HCC) Diabetes mellitus with nephropathy (HCC) Type II or unspecified type diabetes mellitus with renal manifestations, not stated as uncontrolled Dietary counseling and surveillance Dietary surveillance and counseling Vitamin D deficiency Unspecified vitamin D deficiency Hypertension, essential Unspecified essential hypertension Hyperuricemia Other abnormal blood chemistry Other proteinuria documented in this encounter [facility] noteNo assessment [facility] [place] [facility] Phone: Patient's home Plan of care note* Visit Details Visit Type -SN SOC Discipline -Halfway Problems Problem Description Start Date Status Goals Interve ntions Medication Education Disciplines: Skilled Services 10/22/2023 Active 1 goal linked to scheduled/documen kurt intervention 1 goal intervention scheduled/document ed in this visit Mental Health Disciplines: Skilled Services 10/22/2023 Active 1 goal linked to scheduled/documen kurt intervention 1 goal intervention scheduled/document ed in this visit Sepsis Disciplines: Skilled Services 10/22/2023 Active 1 goal linked to scheduled/documen kurt intervention 1 goal intervention scheduled/document ed in this visit Physician Specific Parameters Disciplines: Skilled Services 10/22/2023 Active 1 goal linked to scheduled/documen kurt intervention 1 goal intervention scheduled/document ed in this visit Risk for Falls Disciplines: Skilled Services 10/22/2023 Active 1 goal linked to scheduled/documen kurt intervention 1 goal intervention scheduled/document ed in this visit Pain Disciplines: Skilled Services 10/22/2023 Active 1 goal linked to scheduled/documen kurt intervention 1 goal intervention scheduled/document ed in this visit Diabetic Foot Care Disciplines: Skilled Services 10/22/2023 Active 1 goal linked to scheduled/documen kurt intervention 1 goal intervention scheduled/document ed in this visit Nutrition/Hydration Disciplines: Skilled Services 10/22/2023 Active 1 goal linked to scheduled/documen kurt intervention 1 goal intervention scheduled/document ed in this visit High Risk Medications Disciplines: Skilled Services 10/22/2023 Active 1 goal linked to scheduled/documen kurt intervention 3 goal interventions scheduled/document ed in this visit Discharge Disciplines: Skilled Services 10/22/2023 Active 1 goal linked to scheduled/documen kurt intervention 1 goal intervention scheduled/document ed in this visit SN Integumentary/Wound s Disciplines: SN 10/22/2023 Active 1 goal linked to scheduled/documen kurt intervention 3 goal interventions scheduled/document ed in this visit SN Diabetes Disciplines: SN 10/22/2023 Active 1 goal linked to scheduled/documen kurt intervention 2 goal interventions scheduled/document ed in this visit SN Cardiovascular Condition Disciplines: SN 10/22/2023 Active 1 goal linked to scheduled/documen kurt intervention 1 goal intervention scheduled/document ed in this visit SN Learning Assessment Disciplines: SN 10/22/2023 Active 1 goal linked to scheduled/documen kurt intervention 1 goal intervention scheduled/document ed in this visit SN Ortho Procedure/Surgery Disciplines: SN 10/22/2023 Active 1 goal linked to scheduled/documen kurt intervention 1 goal intervention scheduled/document ed in this visit Goals Goal Associated Problem Outcome Goal Met? Visit Notes Patient/caregiver will demonstrate ability to obtain, store, identify and administer ordered medications, keep accurate medication list in home, and adhere to medication schedule Description: Patient/caregiver will demonstrate ability to obtain, store, identify and administer ordered medications, keep accurate medication list in home, and adhere to medication schedule by 12/20/23. Medication Education No Improved management of mental health condition(s) Description: Patient/caregiver will teach back mental health symptom identification and management techniques by 12/20/23. Mental Health No Patient/caregiver will be able to identify and report symptoms of sepsis Description: Patient/caregiver will be able to identify signs/symptoms of sepsis infection and will verbalize actions to take if suspected by 12/20/23. Sepsis No Patient to maintain parameters within physician-specified ranges throughout certification period Physician Specific Parameters No Manage Risk for falls Description: Patient/caregiver will verbalize knowledge of individualized fall prevention strategies by 12/20/23. Risk for Falls No Manage Pain Description: Patient/caregiver will verbalize knowledge and understanding of appropriate techniques to control pain, including pain medication and non-pharmacological techniques. Patient will verbalize or demonstrate an acceptable level of pain as evidenced by a pain score of <6/10 and improvement in ability to perform activities of daily living to be achieved by 12/20/23. Pain No Manage diabetic foot care Description: Patient/caregiver will demonstrate basic understanding of and compliance with diabetic self-care management as evidenced by verbalizing purpose of daily foot care and assessment by 12/20/23. Diabetic Foot Care No Manage Nutrition/Hydration Description: Patient/caregiver will verbalize/demonstrate knowledge of prescribed diet and/or healthy nutrition to be achieved by 12/20/23. Nutrition/Hydration No Patient/caregiver will teach back high risk medication side effect and precaution education Description: STG Patient/caregiver will verbalize understanding of high risk medication side effects and precautions to be achieved by 12/02/23. LTG Patient/caregiver will continue to verbalize understanding of high risk medication side effects and precautions throughout certification period. High Risk Medications No Manage discharge planning Description: Patient/caregiver will verbalize understanding of ongoing discharge plan provided related to disease management, arrangements for outpatient and/or community services, obtaining medications, supplies, and DME, as needed throughout certification period. Discharge No Patient/Caregiver will have improved healing and be free of signs and symptoms of complications Description: Patient/caregiver will verbalize management strategies to promote wound healing & prevent complications as evidenced by improved healing & no complications by 11/18/23. SN Integumentary/Wounds No Improved management of diabetes Description: Improve diabetic management as evidenced by patient/caregiver able to teach back diabetic management strategies by 11/18/23. SN Diabetes No Improved management of cardiovascular disease Description: Improve patient/caregiver management of cardiac disease as evidenced by patient/caregiver ability to teach back cardiac management strategies by 11/18/23. SN Cardiovascular Condition No Demonstrate understanding of education Description: Patient and/or caregiver will verbalize understanding of educational instruction provided throughout certification period. SN Learning Assessment No Effective management of ortho post-op condition Description: Increase understanding of management of condition following orthopedic procedure/surgery as evidenced by patient's/caregiver's ability to teachback precautions and s/s of complications by 11/18/23. SN Ortho Procedure/Surgery No Interventions Intervention Associated Problem/Goal Status Variance Visit Notes Medication Education Description: Evaluate/instruct patient/caregiver on obtaining, storing, identifying and administering ordered medications as well as keeping accurate medication list in the home and adhereing to medication schedule Problem:Medication Education Goal:Patient/caregive r will demonstrate ability to obtain, store, identify and administer ordered medications, keep accurate medication list in home, and adhere to medication schedule Completed Patient and Caregiver instructed on importance of keeping accurate medication list in home, need to take up-to-date medication list to all medical provider appointments, adhering to medication schedule, proper storage of medications and medication, route, dose, frequency, purpose, and side effects of all medications. Patient/caregiver will teach back mental health symptom identification and management strategies Problem:Mental Health Goal:Improved management of mental health condition(s) Completed Patient and Caregiver instructed on the following: coping skills and techniques, use of relaxation techniques, use of diversional activities and seeking support from family/friends. Risk of Sepsis Description: Patient is at risk for sepsis. Monitor closely for s/s of sepsis. Problem:Sepsis Goal:Patient/caregive r will be able to identify and report symptoms of sepsis Completed SPO2 Description: Notify Dr. Scott if pulse ox is <92% at rest. Problem:Physician Specific Parameters Goal:Patient to maintain parameters within physician-specified ranges throughout certification period Completed Instruct on individual fall risk factors and strategies to prevent falls and injuries caused by falls. Problem:Risk for Falls Goal:Manage Risk for falls Completed SN: Patient instructed on Eliminating Environmental Hazards: Keep pathways clear, Keep rooms and walkways well lit, Wear supportive shoes or non-skid socks and Keep frequently used items within reach Managing Impaired Functional Mobility: Use assistive device(s): single point cane and Caregiver to provide assist with: ADL/IADLs Managing Pain: Recommended pain medication schedule and management of side effects to minimize fall risk Instruct on pain and instruct on strategies to control pain Problem:Pain Goal:Manage Pain Completed patient and caregiver instructed on techniques to control pain including Pharmacological measures and Non-Pharmacological measures; rest, positioning/elevation, distraction, breathing/relaxation and have PCP or surgeon refer to pain management. Monitor lower extremities for skin lesions and educate on proper foot care Problem:Diabetic Foot Care Goal:Manage diabetic foot care Completed patient instructed on diabetic foot care including wearing proper footwear/avoiding going barefoot. Define patient s appetite/hydration status and implement strategies to improve compliance with prescribed diet and/or healthy nutrition. Problem:Nutrition/Hyd ration Goal:Manage Nutrition/Hydration Completed instructed patient on implementing strategies to comply with prescribed diet, healthy nutrition and adequate hydration Opioids- educated on high risk medication Problem:High Risk Medications Goal:Patient/caregive r will teach back high risk medication side effect and precaution education Completed patient educated on taking medication(s) as prescribed by provider. Do not stop medication or alter doses without speaking with your provider. Discuss medication effectiveness or side effect concerns with your provider and home care team. Only take opioids as prescribed, do not share your medications, and take proper precautions in storing and properly disposing of opioids once no longer needed. Possible side effects of opioid medication including sedation, decreased rate of breathing, and constipation. Report over sedation to prescribing provider and practice deep breathing techniques every hour while awake. Prevent constipation by increasing water and fiber intake, increasing activity as tolerated, and use stool softener(s) as prescribed. Hypoglycemic (including insulin)- educated on high risk medication Problem:High Risk Medications Goal:Patient/caregive r will teach back high risk medication side effect and precaution education Completed patient and caregiver educated on taking medication(s) as prescribed by provider. Do not stop medication or skip/alter doses without speaking with your provider. Discuss medication effectiveness or side effect concerns with your provider and home care team. Check blood sugars and keep log as ordered by provider. Monitor for side effects of hypoglycemia such as increased weakness or shaking, moist skin, sweating, fast heartbeat, dizziness, sudden hunger, confusion, pale skin, numbness in mouth or tongue, irritability, nervousness, unsteadiness, nightmares, bad dreams, and restless sleep. Checking your blood sugar routinely and eating a consistent diabetic diet can help regulate blood sugars and reduce side effects. Antibiotic- educated on high risk medication Problem:High Risk Medications Goal:Patient/caregive r will teach back high risk medication side effect and precaution education Completed patient and caregiver educated on taking medication(s) as prescribed by provider. Do not stop medication or alter doses without speaking with your provider. Discuss medication effectiveness or side effect concerns with your provider and home care team. Take the full dispensed amount even if you start feeling better, as bacteria can become resistant to antibiotic treatment if you do not finish your prescription. Common side effects are upset stomach and diarrhea. Take your antibiotics with food unless otherwise indicated to help with indigestion. Taking an [id number] probiotic or eating yogurt with live and active cultures three times a day can help prevent antibiotic-associated diarrhea. Call your provider immediately if you develop rashes or hives as this could be a delayed allergic reaction. Seek emergency treatment if you develop severe allergic reaction symptoms such as mouth or tongue swelling. Instruct on importance of follow-up appts and continued monitoring with medical provider &/or chronic care clinic Problem:Discharge Goal:Manage discharge planning Completed Education provided on importance of compliance with follow-up appointment(s). Recommendations: patient/caregiver to follow up with scheduling appointment(s) for post-acute/primary care provider/chronic care clinic Wound Care: Perform wound care (1) Description: Wound Care Order: Incision location: lower back Wound type (etiology): Surgical Wound Order: Cleanse in shower or with gentle soap/water. Allow steristips to self debride. May cover with dry dressing daily as needed for comfort or drainage. Frequency: daily Wound care to be completed by caregiver except for scheduled SN wound care visits. Okay to substitute comparable products from home care formulary. Problem:SN Integumentary/Wounds Goal:Patient/Caregive r will have improved healing and be free of signs and symptoms of complications Completed Completed by SN. Patient did tolerate well. Instruct patient/caregiver healing process and management measures to promote healing and avoid complications Problem:SN Integumentary/Wounds Goal:Patient/Caregive r will have improved healing and be free of signs and symptoms of complications Completed patient and caregiver instructed on the following: healing process, signs and symptoms of infection and when to report symptoms. Instruct Patient/Caregiver on wound/incision care procedure as ordered by physician Problem:SN Integumentary/Wounds Goal:Patient/Caregive r will have improved healing and be free of signs and symptoms of complications Completed patient and caregiver instructed on wound care as ordered by Physician. Instruct on diabetes disease process and management of chronic condition Description: Patient has needs for education of diabetes. Problem:SN Diabetes Goal:Improved management of diabetes Completed patient and caregiver assessed and instructed on diabetes disease process, monitoring blood sugars 4 times a day, how to use blood sugar meter and logging readings, how food and insulin affect blood sugar, diet education and recogonizing s/s of hypoglycemia and hyperglycemia as found in the diabetes self-care booklets. Ensure patient/caregiver has Living with Diabetes Booklet in home Description: SN to provide and refer to diabetes education booklet every visit. Problem:SN Diabetes Goal:Improved management of diabetes Completed Patient provided diabetes self-care booklet. Instruct on cardiovascular disease process and management of condition Description: Patient has following cardiac diagnosis(es): Hypertension. Problem:SN Cardiovascular Condition Goal:Improved management of cardiovascular disease Completed patient and caregiver instructed on self monitoring & symptom reporting. Instruct and educate on knowledge deficits Problem:SN Learning Assessment Goal:Demonstrate understanding of education Completed patient and caregiver verbalize and/or demonstrate understanding of nursing education completed today. Education methods include: verbal cues, written instructions and visual cues. Further education required to improve knowledge and compliance with cardiac disease management, diabetic care management, fall prevention/home safety strategies, incision/wound care management, medication management, nutrition, orthopedic condition management, pain management and surgical care precautions. Instruct on ortho post-op care and monitoring/prevention of complications Description: Patient is status-post laminectomy Problem:SN Ortho Procedure/Surgery Goal:Effective management of ortho post-op condition Completed patient and caregiver instructed on the following precautions/restrictio ns:spinal precautions [facility] Visit Details Visit Type -SURVEYOR INSTRUMENT ASSISTANT EVAL Discipline -Motorcycle Fabricator Problems Problem Description Start Date Status Goals Interve ntions SURVEYOR INSTRUMENT ASSISTANT Referral Disciplines: Skilled Services 10/22/2023 Resolved on 10/26/2023 1 goal linked to scheduled/documen kurt intervention 1 goal intervention scheduled/document ed in this visit SURVEYOR INSTRUMENT ASSISTANT Assessment Technician Care Needs Disciplines: SURVEYOR INSTRUMENT ASSISTANT 10/26/2023 Resolved on 10/26/2023 1 goal linked to scheduled/documen kurt intervention 1 goal intervention scheduled/document ed in this visit SURVEYOR INSTRUMENT ASSISTANT General Evaluation and Treatment Disciplines: SURVEYOR INSTRUMENT ASSISTANT 10/26/2023 Resolved on 10/26/2023 1 goal linked to scheduled/documen kurt intervention 1 goal intervention scheduled/document ed in this visit SURVEYOR INSTRUMENT ASSISTANT Social/Emotional Support Disciplines: SURVEYOR INSTRUMENT ASSISTANT 10/26/2023 Resolved on 10/26/2023 1 goal linked to scheduled/documen kurt intervention 1 goal intervention scheduled/document ed in this visit SURVEYOR INSTRUMENT ASSISTANT Caregiver Willingness Disciplines: SURVEYOR INSTRUMENT ASSISTANT 10/26/2023 Resolved on 10/26/2023 1 goal linked to scheduled/documen kurt intervention 1 goal intervention scheduled/document ed in this visit Goals Goal Associated Problem Outcome Goal Met? Visit Notes Patient will be referred to additional discipline as needed SURVEYOR INSTRUMENT ASSISTANT Referral Completed Yes Patients Assessment Technician Care Needs Will Be Met Description: Patients group home care needs will be met by information provided and referrals made. SURVEYOR INSTRUMENT ASSISTANT Assessment Technician Care Needs Completed Yes Complete General Evaluation and Treatment Description: patient and caregiver will demonstrate compliance with and participation in the plan of treatment. SURVEYOR INSTRUMENT ASSISTANT General Evaluation and Treatment Completed Yes Provide Social/Emotional Support Description: patient will have adequate social emotional support as evidence by consistent contact with family and friends. SURVEYOR INSTRUMENT ASSISTANT Social/Emotional Support Completed Yes Determine Caregiver Willingness to Care for Patient Description: Caregiver will demonstrate willingness and ability to adequately care for the patient as evidence by providing a safe home environment and providing assistance with all ADL/IADL needs. SURVEYOR INSTRUMENT ASSISTANT Caregiver Willingness Completed Yes Interventions Intervention Associated Problem/Goal Status Variance Visit Notes SURVEYOR INSTRUMENT ASSISTANT evaluation and treatment Description: SURVEYOR INSTRUMENT ASSISTANT Referral eval and treat for Community Resources-"global or Mom's meals?, eligible for PASSPORT. Pt could use both for personal care and homemaking assist. Problem:SURVEYOR INSTRUMENT ASSISTANT Referral Goal:Patient will be referred to additional discipline as needed Completed senior living care planning Problem:SURVEYOR INSTRUMENT ASSISTANT Residential Care Needs Goal:Patients Assessment Technician Care Needs Will Be Met Completed Patients extermination supervisor care needs will be met by information provided and referral made to [facility] for PASSPORT. SURVEYOR INSTRUMENT ASSISTANT Assessment Problem:SURVEYOR INSTRUMENT ASSISTANT General Evaluation and Treatment Goal:Complete General Evaluation and Treatment Completed patient and caregiver fully participated in plan of treatment. Adequate social/emotional support Problem:SURVEYOR INSTRUMENT ASSISTANT Social/Emotional Support Goal:Provide Social/Emotional Support Completed patient has adequate natural supports. Caregiver Instruction Problem:SURVEYOR INSTRUMENT ASSISTANT Caregiver Willingness Goal:Determine Caregiver Willingness to Care for Patient Completed Caregiver demonstrates willingness and demonstrates ability to assitst in patients ADLs/IADLs needs. documented in this encounter [facility] home Plan of care note* Visit Details Visit Type -SN ROUTINE Discipline -Halfway Problems Problem Description Start Date Status Goals Interve ntions Medication Education Disciplines: Skilled Services 10/22/2023 Active 1 goal linked to scheduled/docume nted intervention 1 goal intervention scheduled/documen kurt in this visit Mental Health Disciplines: Skilled Services 10/22/2023 Active 1 goal linked to scheduled/docume nted intervention 1 goal intervention scheduled/documen kurt in this visit Sepsis Disciplines: Skilled Services 10/22/2023 Active 1 goal linked to scheduled/docume nted intervention 1 goal intervention scheduled/documen kurt in this visit Physician Specific Parameters Disciplines: Skilled Services 10/22/2023 Active 1 goal linked to scheduled/docume nted intervention 1 goal intervention scheduled/documen kurt in this visit Risk for Falls Disciplines: Skilled Services 10/22/2023 Active 1 goal linked to scheduled/docume nted intervention 1 goal intervention scheduled/documen kurt in this visit Pain Disciplines: Skilled Services 10/22/2023 Active 1 goal linked to scheduled/docume nted intervention 1 goal intervention scheduled/documen ukrt in this visit Diabetic Foot Care Disciplines: Skilled Services 10/22/2023 Active 1 goal linked to scheduled/docume nted intervention 1 goal intervention scheduled/documen kurt in this visit Nutrition/Hydration Disciplines: Skilled Services 10/22/2023 Active 1 goal linked to scheduled/docume nted intervention 1 goal intervention scheduled/documen kurt in this visit High Risk Medications Disciplines: Skilled Services 10/22/2023 Active 1 goal linked to scheduled/docume nted intervention 2 goal interventions scheduled/documen kurt in this visit SN Integumentary/Wound s Disciplines: SN 10/22/2023 Active 1 goal linked to scheduled/docume nted intervention 3 goal interventions scheduled/documen kurt in this visit SN Diabetes Disciplines: SN 10/22/2023 Active 1 goal linked to scheduled/docume nted intervention 2 goal interventions scheduled/documen kurt in this visit SN Cardiovascular Condition Disciplines: 10/22/2023 Active 1 goal linked to scheduled/docume nted intervention 1 goal intervention scheduled/documen kurt in this visit SN Learning Assessment Disciplines: 10/22/2023 Active 1 goal linked to scheduled/docume nted intervention 1 goal intervention scheduled/documen kurt in this visit SN Ortho Procedure/Surgery Disciplines: 10/22/2023 Active 1 goal linked to scheduled/docume nted intervention 1 goal intervention scheduled/documen kurt in this visit SN Labwork Disciplines: 10/22/2023 Resolved on 10/26/2023 1 goal linked to scheduled/docume nted intervention 1 goal intervention scheduled/documen kurt in this visit Goals Goal Associated Problem Outcome Goal Met? Visit Notes Patient/caregiver will demonstrate ability to obtain, store, identify and administer ordered medications, keep accurate medication list in home, and adhere to medication schedule Description: Patient/caregiver will demonstrate ability to obtain, store, identify and administer ordered medications, keep accurate medication list in home, and adhere to medication schedule by 12/20/23. Medication Education No Improved management of mental health condition(s) Description: Patient/caregiver will teach back mental health symptom identification and management techniques by 12/20/23. Mental Health No Patient/caregiver will be able to identify and report symptoms of sepsis Description: Patient/caregiver will be able to identify signs/symptoms of sepsis infection and will verbalize actions to take if suspected by 12/20/23. Sepsis No Patient to maintain parameters within physician-specified ranges throughout certification period Physician Specific Parameters No Manage Risk for falls Description: Patient/caregiver will verbalize knowledge of individualized fall prevention strategies by 12/20/23. Risk for Falls No Manage Pain Description: Patient/caregiver will verbalize knowledge and understanding of appropriate techniques to control pain, including pain medication and non-pharmacological techniques. Patient will verbalize or demonstrate an acceptable level of pain as evidenced by a pain score of <6/10 and improvement in ability to perform activities of daily living to be achieved by 12/20/23. Pain No Manage diabetic foot care Description: Patient/caregiver will demonstrate basic understanding of and compliance with diabetic self-care management as evidenced by verbalizing purpose of daily foot care and assessment by 12/20/23. Diabetic Foot Care No Manage Nutrition/Hydration Description: Patient/caregiver will verbalize/demonstrate knowledge of prescribed diet and/or healthy nutrition to be achieved by 12/20/23. Nutrition/Hydration No Patient/caregiver will teach back high risk medication side effect and precaution education Description: STG Patient/caregiver will verbalize understanding of high risk medication side effects and precautions to be achieved by 12/02/23. LTG Patient/caregiver will continue to verbalize understanding of high risk medication side effects and precautions throughout certification period. High Risk Medications No Patient/Caregiver will have improved healing and be free of signs and symptoms of complications Description: Patient/caregiver will verbalize management strategies to promote wound healing & prevent complications as evidenced by improved healing & no complications by 11/18/23. SN Integumentary/Wounds No Improved management of diabetes Description: Improve diabetic management as evidenced by patient/caregiver able to teach back diabetic management strategies by 11/18/23. SN Diabetes No Improved management of cardiovascular disease Description: Improve patient/caregiver management of cardiac disease as evidenced by patient/caregiver ability to teach back cardiac management strategies by 11/18/23. SN Cardiovascular Condition No Demonstrate understanding of education Description: Patient and/or caregiver will verbalize understanding of educational instruction provided throughout certification period. SN Learning Assessment No Effective management of ortho post-op condition Description: Increase understanding of management of condition following orthopedic procedure/surgery as evidenced by patient's/caregiver's ability to teachback precautions and s/s of complications by 11/18/23. SN Ortho Procedure/Surgery No SN to obtain lab specimen without difficulty when ordered throughout certification period SN Labwork Completed Yes Interventions Intervention Associated Problem/Goal Status Variance Visit Notes Medication Education Description: Evaluate/instruct patient/caregiver on obtaining, storing, identifying and administering ordered medications as well as keeping accurate medication list in the home and adhereing to medication schedule Problem:Medication Education Goal:Patient/caregiv er will demonstrate ability to obtain, store, identify and administer ordered medications, keep accurate medication list in home, and adhere to medication schedule Completed Patient and Caregiver instructed on importance of keeping accurate medication list in home, need to take up-to-date medication list to all medical provider appointments, adhering to medication schedule, proper storage of medications and medication, route, dose, frequency, purpose, and side effects of current med list medications. Patient/caregiver will teach back mental health symptom identification and management strategies Problem:Mental Health Goal:Improved management of mental health condition(s) Completed Patient and Caregiver instructed on the following: signs and symptoms of increased anxiety and when to report to physician, importance of medication adherence, coping skills and techniques and crisis hotline use. Risk of Sepsis Description: Patient is at risk for sepsis. Monitor closely for s/s of sepsis. Problem:Sepsis Goal:Patient/caregiv er will be able to identify and report symptoms of sepsis Completed SPO2 Description: Notify Dr. Scott if pulse ox is <92% at rest. Problem:Physician Specific Parameters Goal:Patient to maintain parameters within physician-specified ranges throughout certification period Completed Instruct on individual fall risk factors and strategies to prevent falls and injuries caused by falls. Problem:Risk for Falls Goal:Manage Risk for falls Completed SN: Patient and Caregiver instructed on Managing Impaired Functional Mobility: Use assistive device(s): standard walker and Caregiver to provide assist with: ADL/IADLs Managing Pain: Recommended pain medication schedule and management of side effects to minimize fall risk Instruct on pain and instruct on strategies to control pain Problem:Pain Goal:Manage Pain Completed patient and caregiver instructed on techniques to control pain including Non-Pharmacological measures; rest, positioning/elevati on, mobility/therapeuti c exercise and distraction. Monitor lower extremities for skin lesions and educate on proper foot care Problem:Diabetic Foot Care Goal:Manage diabetic foot care Completed patient and caregiver instructed on diabetic foot care including daily skin inspection, wearing proper footwear/avoiding going barefoot, wash/dry feet thoroughly, applying moisturizer, avoiding between toes and toenail care. Define patient s appetite/hydration status and implement strategies to improve compliance with prescribed diet and/or healthy nutrition. Problem:Nutrition/Hy dration Goal:Manage Nutrition/Hydration Completed reinforced patient and caregiver on implementing strategies to comply with prescribed diet, healthy nutrition and adequate hydration Opioids- educated on high risk medication Problem:High Risk Medications Goal:Patient/caregiv er will teach back high risk medication side effect and precaution education Completed patient and caregiver educated on taking medication(s) as prescribed by provider. Do not stop medication or alter doses without speaking with your provider. Discuss medication effectiveness or side effect concerns with your provider and home care team. Only take opioids as prescribed, do not share your medications, and take proper precautions in storing and properly disposing of opioids once no longer needed. Possible side effects of opioid medication including sedation, decreased rate of breathing, and constipation. Report over sedation to prescribing provider and practice deep breathing techniques every hour while awake. Prevent constipation by increasing water and fiber intake, increasing activity as tolerated, and use stool softener(s) as prescribed. Hypoglycemic (including insulin)- educated on high risk medication Problem:High Risk Medications Goal:Patient/caregiv er will teach back high risk medication side effect and precaution education Completed patient and caregiver educated on taking medication(s) as prescribed by provider. Do not stop medication or skip/alter doses without speaking with your provider. Discuss medication effectiveness or side effect concerns with your provider and home care team. Check blood sugars and keep log as ordered by provider. Monitor for side effects of hypoglycemia such as increased weakness or shaking, moist skin, sweating, fast heartbeat, dizziness, sudden hunger, confusion, pale skin, numbness in mouth or tongue, irritability, nervousness, unsteadiness, nightmares, bad dreams, and restless sleep. Checking your blood sugar routinely and eating a consistent diabetic diet can help regulate blood sugars and reduce side effects. Instruct patient/caregiver healing process and management measures to promote healing and avoid complications Problem:SN Integumentary/Wounds Goal:Patient/Caregiv er will have improved healing and be free of signs and symptoms of complications Completed patient and caregiver instructed on the following: healing process, signs and symptoms of infection, importance of good nutrition, importance of managing blood sugars and when to report symptoms. Instruct Patient/Caregiver on wound/incision care procedure as ordered by physician Problem:SN Integumentary/Wounds Goal:Patient/Caregiv er will have improved healing and be free of signs and symptoms of complications Completed patient and caregiver instructed on wound care as ordered by Physician. Wound Care: Perform wound care (1) Description: Wound Care Order: Incision location: lower back Wound type (etiology): Surgical Wound Order: Cleanse in shower or with gentle soap/water. Allow steristips to self debride. May cover with dry dressing daily as needed for comfort or drainage. Frequency: daily Wound care to be completed by caregiver except for scheduled SN wound care visits. Okay to substitute comparable products from home care formulary. Problem:SN Integumentary/Wounds Goal:Patient/Caregiv er will have improved healing and be free of signs and symptoms of complications Other (specify reason) [employer], incision dry Instruct on diabetes disease process and management of chronic condition Description: Patient has needs for education of diabetes. Problem:SN Diabetes Goal:Improved management of diabetes Completed patient and caregiver assessed and reinforced on diabetes disease process, how food and insulin affect blood sugar, diet education, how to carb count, recogonizing s/s of hypoglycemia and hyperglycemia, managing sick days and physician activity guidelines as found in the diabetes self-care booklets. Ensure patient/caregiver has Living with Diabetes Booklet in home Description: SN to provide and refer to diabetes education booklet every visit. Problem:SN Diabetes Goal:Improved management of diabetes Completed Patient has diabetes self-care booklet. Instruct on cardiovascular disease process and management of condition Description: Patient has following cardiac diagnosis(es): Hypertension. Problem:SN Cardiovascular Condition Goal:Improved management of cardiovascular disease Completed patient and caregiver instructed on cardiac disease process, self monitoring & symptom reporting and Cardiac Diet. Instruct and educate on knowledge deficits Problem:SN Learning Assessment Goal:Demonstrate understanding of education Completed patient and caregiver verbalize and/or demonstrate understanding of nursing education completed today. Education methods include: verbal cues and written instructions. Further education required to improve knowledge and compliance with fall prevention/home safety strategies and nutrition. Instruct on ortho post-op care and monitoring/preventio n of complications Description: Patient is status-post laminectomy Problem:SN Ortho Procedure/Surgery Goal:Effective management of ortho post-op condition Completed patient and caregiver instructed on the following precautions/restric tions:s/s of infection and spinal precautions SN to obtain blood specimen (1) Description: Draw blood via venipuncture for BMP with a frequency of once on week of 10/23/23. Results to Dr Bunny Scott. Dx code(s): N18.32 Problem:SN Labwork Goal:SN to obtain lab specimen without difficulty when ordered throughout certification period Other (specify reason) unable to obtain, no blood return [facility] Visit Details Visit Type -PT EVAL Discipline -Physical Therapy Problems Problem Description Start Date Status Goals Interve ntions Medication Education Disciplines: Skilled Services 10/22/2023 Active 1 goal linked to scheduled/docume nted intervention 1 goal intervention scheduled/documen kurt in this visit Sepsis Disciplines: Skilled Services 10/22/2023 Active 1 goal linked to scheduled/docume nted intervention 1 goal intervention scheduled/documen kurt in this visit PT Referral Disciplines: Skilled Services 10/22/2023 Resolved on 10/28/2023 1 goal linked to scheduled/docume nted intervention 1 goal intervention scheduled/documen kurt in this visit Physician Specific Parameters Disciplines: Skilled Services 10/22/2023 Active 1 goal linked to scheduled/docume nted intervention 1 goal intervention scheduled/documen kurt in this visit Risk for Falls Disciplines: Skilled Services 10/22/2023 Active 1 goal linked to scheduled/docume nted intervention 1 goal intervention scheduled/documen kurt in this visit Pain Disciplines: Skilled Services 10/22/2023 Active 1 goal linked to scheduled/docume nted intervention 1 goal intervention scheduled/documen kurt in this visit High Risk Medications Disciplines: Skilled Services 10/22/2023 Active 1 goal linked to scheduled/docume nted intervention 2 goal interventions scheduled/documen kurt in this visit Discharge Disciplines: Skilled Services 10/22/2023 Active 1 goal linked to scheduled/docume nted intervention 1 goal intervention scheduled/documen kurt in this visit PT Impaired mobility Disciplines: PT 10/28/2023 Active 1 goal linked to scheduled/docume nted intervention 1 goal intervention scheduled/documen kurt in this visit PT Impaired gait Disciplines: PT 10/28/2023 Active 1 goal linked to scheduled/docume nted intervention 1 goal intervention scheduled/documen kurt in this visit PT Impaired balance Disciplines: PT 10/28/2023 Active 1 goal linked to scheduled/docume nted intervention 1 goal intervention scheduled/documen kurt in this visit PT Orthopedic Condition Disciplines: PT 10/28/2023 Active 1 goal linked to scheduled/docume nted intervention 1 goal intervention scheduled/documen kurt in this visit PT Learning Assessment Disciplines: PT 10/28/2023 Active 1 goal linked to scheduled/docume nted intervention 1 goal intervention scheduled/documen kurt in this visit PT Cardiovascular Disease Disciplines: PT 10/28/2023 Active 1 goal linked to scheduled/docume nted intervention 1 goal intervention scheduled/documen kurt in this visit Goals Goal Associated Problem Outcome Goal Met? Visit Notes Patient/caregiver will demonstrate ability to obtain, store, identify and administer ordered medications, keep accurate medication list in home, and adhere to medication schedule Description: Patient/caregiver will demonstrate ability to obtain, store, identify and administer ordered medications, keep accurate medication list in home, and adhere to medication schedule by 12/20/23. Medication Education No Patient/caregiver will be able to identify and report symptoms of sepsis Description: Patient/caregiver will be able to identify signs/symptoms of sepsis infection and will verbalize actions to take if suspected by 12/20/23. Sepsis No Patient will be referred to additional discipline as needed PT Referral Completed Yes 10/28/23 Patient to maintain parameters within physician-specified ranges throughout certification period Physician Specific Parameters No Manage Risk for falls Description: Patient/caregiver will verbalize knowledge of individualized fall prevention strategies by 12/20/23. Risk for Falls No Manage Pain Description: Patient/caregiver will verbalize knowledge and understanding of appropriate techniques to control pain, including pain medication and non-pharmacological techniques. Patient will verbalize or demonstrate an acceptable level of pain as evidenced by a pain score of <6/10 and improvement in ability to perform activities of daily living to be achieved by 12/20/23. Pain No Patient/caregiver will teach back high risk medication side effect and precaution education Description: STG Patient/caregiver will verbalize understanding of high risk medication side effects and precautions to be achieved by 12/02/23. LTG Patient/caregiver will continue to verbalize understanding of high risk medication side effects and precautions throughout certification period. High Risk Medications No Manage discharge planning Description: Patient/caregiver will verbalize understanding of ongoing discharge plan provided related to disease management, arrangements for outpatient and/or community services, obtaining medications, supplies, and DME, as needed throughout certification period. Discharge No Improved Transfers Description: STG: Patient will demonstrate safe transfers to/from bed and chair independently, to be achieved by 11/11/23. PT Impaired mobility No Improved Gait Description: LTG: Patient will demonstrate improved gait ability as evidenced by ambulation 200 feet with single point cane independently, to return to safe community ambulation, in order to safely walk into medical appointments, to be achieved by 11/18/23. PT Impaired gait No Improved Balance Description: LTG: Patient will demonstrate improved standing balance to meet functional goals as evidenced by TUG score of 25 sec to be achieved by 11/18/23. PT Impaired balance No Manage Orthopedic Condition Description: Improve patient and/or caregiver understanding of post surgical and/or non-surgical orthopedic intervention management as evidenced by patient and/or caregiver able to verbalize, demonstrate, and teach back instruction, to be achieved by 11/18/23. PT Orthopedic Condition No Demonstrate understanding of education Description: Patient and/or caregiver will understand educational instruction to be achieved by 11/18/23. PT Learning Assessment No Manage Primary Cardiovascular Disease Description: Improve patient and/or caregiver understanding of primary cardiovascular disease management as evidenced by patient and/or caregiver able to verbalize, demonstrate, and teach back instruction, to be achieved by 11/18/23. PT Cardiovascular Disease No Interventions Intervention Associated Problem/Goal Status Variance Visit Notes Medication Education Description: Evaluate/instruct patient/caregiver on obtaining, storing, identifying and administering ordered medications as well as keeping accurate medication list in the home and adhereing to medication schedule Problem:Medication Education Goal:Patient/caregive r will demonstrate ability to obtain, store, identify and administer ordered medications, keep accurate medication list in home, and adhere to medication schedule Completed Patient instructed on importance of keeping accurate medication list in home, need to take up-to-date medication list to all medical provider appointments, adhering to medication schedule and proper storage of medications. Risk of Sepsis Description: Patient is at risk for sepsis. Monitor closely for s/s of sepsis. Problem:Sepsis Goal:Patient/caregive r will be able to identify and report symptoms of sepsis Completed PT evaluation and treatment Description: Evaluate and treat for the assessment of functional deficits and establishment of appropriate interventions and education, including recommendations for functional mobility training, balance training for fall reduction, and strengthening. Problem:PT Referral Goal:Patient will be referred to additional discipline as needed Completed SPO2 Description: Notify Dr. Scott if pulse ox is <92% at rest. Problem:Physician Specific Parameters Goal:Patient to maintain parameters within physician-specified ranges throughout certification period Completed Instruct on individual fall risk factors and strategies to prevent falls and injuries caused by falls. Problem:Risk for Falls Goal:Manage Risk for falls Completed Patient instructed on Eliminating Environmental Hazards: Keep pathways clear, Move furniture from pathways, Keep rooms and walkways well lit, Wear supportive shoes or non-skid socks and Keep frequently used items within reach Instruct on pain and instruct on strategies to control pain Problem:Pain Goal:Manage Pain Completed Patient and caregiver instructed on techniques to control pain including Pharmacological measures and Non-Pharmacological measures; rest, positioning/elevation , mobility/therapeutic exercise, use ofDME/assistive devices and use of thermal modalities, apply ice to affected area for the following prescribed frequency: 4 times a day x 20 min. Opioids- educated on high risk medication Problem:High Risk Medications Goal:Patient/caregive r will teach back high risk medication side effect and precaution education Completed patient educated on taking medication(s) as prescribed by provider. Do not stop medication or alter doses without speaking with your provider. Discuss medication effectiveness or side effect concerns with your provider and home care team. Only take opioids as prescribed, do not share your medications, and take proper precautions in storing and properly disposing of opioids once no longer needed. Possible side effects of opioid medication including sedation, decreased rate of breathing, and constipation. Report over sedation to prescribing provider and practice deep breathing techniques every hour while awake. Prevent constipation by increasing water and fiber intake, increasing activity as tolerated, and use stool softener(s) as prescribed. Hypoglycemic (including insulin)- educated on high risk medication Problem:High Risk Medications Goal:Patient/caregive r will teach back high risk medication side effect and precaution education Completed patient educated on taking medication(s) as prescribed by provider. Do not stop medication or skip/alter doses without speaking with your provider. Discuss medication effectiveness or side effect concerns with your provider and home care team. Check blood sugars and keep log as ordered by provider. Monitor for side effects of hypoglycemia such as increased weakness or shaking, moist skin, sweating, fast heartbeat, dizziness, sudden hunger, confusion, pale skin, numbness in mouth or tongue, irritability, nervousness, unsteadiness, nightmares, bad dreams, and restless sleep. Checking your blood sugar routinely and eating a consistent diabetic diet can help regulate blood sugars and reduce side effects. Instruct on ongoing discharge plan Problem:Discharge Goal:Manage discharge planning Completed Ongoing Discharge plan: Discharge plan discussed with patient including frequency and duration for home PT and plan for transition to: live independently at home without ongoing services. Physical Therapy Transfer Training Problem:PT Impaired mobility Goal:Improved Transfers Completed Transfer training and instruction to patient on safe transfers to and from chair with stand by assist and verbal cues for hand placement and positioning to edge of surface prior to standing. Physical Therapy Gait Training Problem:PT Impaired gait Goal:Improved Gait Completed Gait training and instruction to patient on safe ambulation with front wheeled walker for 30 feet with stand by assist, with verbal cues for corrections of gait deviations including even steps and heel to toe gait. Patient was unsteady and would appear to benefit from a walker, but patient insists he walks better with a cane. Physical Therapy Balance Training Problem:PT Impaired balance Goal:Improved Balance Completed Developed, implemented, and instructed patient on standing balance exercises including TUG of 56.57 sec. Instruct on orthopedic bracing Description: Orthopedic bracing to include confirmation of patient wearing back brace vs no back brace. Problem:PT Orthopedic Condition Goal:Manage Orthopedic Condition Completed patient instructed on orthopedic bracing including wearing schedule. Needs confirmed with MD Instruct and educate on knowledge deficits Problem:PT Learning Assessment Goal:Demonstrate understanding of education Completed patient verbalize and/or demonstrate understanding of physical therapy education including cardiac disease management, orthopedic condition management, surgical precautions, pain management, nutrition, fall prevention strategies, home safety, integumentary and incision/wound care management, infection control precautions, functional activity and home exercise program. Education methods include: verbal cues. Further education required to improve knowledge and compliance with cardiac disease management, orthopedic condition management, surgical precautions, pain management, nutrition, fall prevention strategies, home safety, integumentary and incision/wound care management, infection control precautions, functional activity and home exercise program. . Instruct on signs, symptoms, and management of primary cardiovascular disease Problem:PT Cardiovascular Disease Goal:Manage Primary Cardiovascular Disease Completed Instructed patient on use of zone sheet, use of RPE, energy conservation, exercise and activity guidelines, fluid tracking and instructed on when to call provider. documented in this encounter [facility] home Plan of care note* Visit Details Visit Type -OT EVAL Discipline -Occupational Therapy Problems Problem Description Start Date Status Goals Interve ntions OT Referral Disciplines: Skilled Services 10/22/2023 Resolved on 10/27/2023 1 goal linked to scheduled/documen kurt intervention 1 goal intervention scheduled/document ed in this visit Physician Specific Parameters Disciplines: Skilled Services 10/22/2023 Active 1 goal linked to scheduled/documen kurt intervention 1 goal intervention scheduled/document ed in this visit Pain Disciplines: Skilled Services 10/22/2023 Active 1 goal linked to scheduled/documen kurt intervention 1 goal intervention scheduled/document ed in this visit Diabetic Foot Care Disciplines: Skilled Services 10/22/2023 Active 1 goal linked to scheduled/documen kurt intervention 1 goal intervention scheduled/document ed in this visit Discharge Disciplines: Skilled Services 10/22/2023 Active 1 goal linked to scheduled/documen kurt intervention 1 goal intervention scheduled/document ed in this visit OT Learning Assessment Disciplines: OT 10/27/2023 Active 1 goal linked to scheduled/documen kurt intervention 1 goal intervention scheduled/document ed in this visit OT Functional Transfers Disciplines: OT 10/27/2023 Active 1 goal linked to scheduled/documen kurt intervention 1 goal intervention scheduled/document ed in this visit Goals Goal Associated Problem Outcome Goal Met? Visit Notes Patient will be referred to additional discipline as needed OT Referral Completed Yes ot eval completed Patient to maintain parameters within physician-specified ranges throughout certification period Physician Specific Parameters No Manage Pain Description: Patient/caregiver will verbalize knowledge and understanding of appropriate techniques to control pain, including pain medication and non-pharmacological techniques. Patient will verbalize or demonstrate an acceptable level of pain as evidenced by a pain score of <6/10 and improvement in ability to perform activities of daily living to be achieved by 12/20/23. Pain No Manage diabetic foot care Description: Patient/caregiver will demonstrate basic understanding of and compliance with diabetic self-care management as evidenced by verbalizing purpose of daily foot care and assessment by 12/20/23. Diabetic Foot Care No Manage discharge planning Description: Patient/caregiver will verbalize understanding of ongoing discharge plan provided related to disease management, arrangements for outpatient and/or community services, obtaining medications, supplies, and DME, as needed throughout certification period. Discharge No Demonstrate understanding of education Description: Patient and/or caregiver will understand educational instruction to be achieved by 11/18/23. OT Learning Assessment No Improved Functional Transfers Description: patient will demonstrate safe transfers to/from toilet and shower/tub with independent assistance and minimal verbal cues with use of DME to be achieved by 11/18/23. OT Functional Transfers No Interventions Intervention Associated Problem/Goal Status Variance Visit Notes OT evaluation and treatment Description: Evaluate and treat for the assessment of functional deficits and establishment of appropriate interventions and education to address: I/ADL training, functional transfers, DME/adaptive equipment recommendations, safety awareness, energy conservation, home safety and falls prevention recommendations and upper extremity strengthening and home exercise program training. Problem:OT Referral Goal:Patient will be referred to additional discipline as needed Completed SPO2 Description: Notify Dr. Scott if pulse ox is <92% at rest. Problem:Physician Specific Parameters Goal:Patient to maintain parameters within physician-specified ranges throughout certification period Completed Instruct on pain and instruct on strategies to control pain Problem:Pain Goal:Manage Pain Completed patient instructed on techniques to control pain including Pharmacological measures and Non-Pharmacological measures; rest and positioning/elevation. Monitor lower extremities for skin lesions and educate on proper foot care Problem:Diabetic Foot Care Goal:Manage diabetic foot care Completed patient instructed on diabetic foot care including daily skin inspection, wearing proper footwear/avoiding going barefoot, wash/dry feet thoroughly and applying moisturizer, avoiding between toes. Instruct on ongoing discharge plan Problem:Discharge Goal:Manage discharge planning Completed Ongoing Discharge plan: Discharge plan discussed with patient including frequency and duration for home OT and plan for transition to: caregiver assistance. Instruct and educate on knowledge deficits Problem:OT Learning Assessment Goal:Demonstrate understanding of education Completed Education methods include: verbal cues. Patient/Caregiver require further education to improve knowledge and compliance with fall prevention strategies, orthopedic condition management, pain management, post surgical precautions, home safety and functional transfers. Transfer Training Problem:OT Functional Transfers Goal:Improved Functional Transfers Completed Instruct patient on safe transfers and proper techniques to perform to and from toilet with cg assistance documented in this encounter [facility]'s home Plan of care note* Visit Details Visit Type -OT ROUTINE Discipline -Occupational Therapy Problems Problem Description Start Date Status Goals Interve ntions Physician Specific Parameters Disciplines: Skilled Services 10/22/2023 Active 1 goal linked to scheduled/document ed intervention 1 goal intervention scheduled/documente d in this visit Risk for Falls Disciplines: Skilled Services 10/22/2023 Active 1 goal linked to scheduled/document ed intervention 1 goal intervention scheduled/documente d in this visit Pain Disciplines: Skilled Services 10/22/2023 Active 1 goal linked to scheduled/document ed intervention 1 goal intervention scheduled/documente d in this visit Diabetic Foot Care Disciplines: Skilled Services 10/22/2023 Active 1 goal linked to scheduled/document ed intervention 1 goal intervention scheduled/documente d in this visit Discharge Disciplines: Skilled Services 10/22/2023 Active 1 goal linked to scheduled/document ed intervention 1 goal intervention scheduled/documente d in this visit OT Learning Assessment Disciplines: OT 10/27/2023 Active 1 goal linked to scheduled/document ed intervention 1 goal intervention scheduled/documente d in this visit OT Upper Body Strength and/or ROM Disciplines: OT 10/27/2023 Active 1 goal linked to scheduled/document ed intervention 1 goal intervention scheduled/documente d in this visit OT Functional Transfers Disciplines: OT 10/27/2023 Active 1 goal linked to scheduled/document ed intervention 1 goal intervention scheduled/documente d in this visit Goals Goal Associated Problem Outcome Goal Met? Visit Notes Patient to maintain parameters within physician-specified ranges throughout certification period Physician Specific Parameters No Manage Risk for falls Description: Patient/caregiver will verbalize knowledge of individualized fall prevention strategies by 12/20/23. Risk for Falls No Manage Pain Description: Patient/caregiver will verbalize knowledge and understanding of appropriate techniques to control pain, including pain medication and non-pharmacological techniques. Patient will verbalize or demonstrate an acceptable level of pain as evidenced by a pain score of <6/10 and improvement in ability to perform activities of daily living to be achieved by 12/20/23. Pain No Manage diabetic foot care Description: Patient/caregiver will demonstrate basic understanding of and compliance with diabetic self-care management as evidenced by verbalizing purpose of daily foot care and assessment by 12/20/23. Diabetic Foot Care No Manage discharge planning Description: Patient/caregiver will verbalize understanding of ongoing discharge plan provided related to disease management, arrangements for outpatient and/or community services, obtaining medications, supplies, and DME, as needed throughout certification period. Discharge No Demonstrate understanding of education Description: Patient and/or caregiver will understand educational instruction to be achieved by 11/18/23. OT Learning Assessment No Improved Strength and/or ROM Description: patient will verbalize/demonstrate independence with home exercise program, to improve functional performance, to be achieved by 11/18/23. OT Upper Body Strength and/or ROM No Improved Functional Transfers Description: patient will demonstrate safe transfers to/from toilet and shower/tub with independent assistance and minimal verbal cues with use of DME to be achieved by 11/18/23. OT Functional Transfers No Interventions Intervention Associated Problem/Goal Status Variance Visit Notes SPO2 Description: Notify Dr. Scott if pulse ox is <92% at rest. Problem:Physician Specific Parameters Goal:Patient to maintain parameters within physician-specified ranges throughout certification period Completed Instruct on individual fall risk factors and strategies to prevent falls and injuries caused by falls. Problem:Risk for Falls Goal:Manage Risk for falls Completed OT: Patient instructed on Managing Impaired Functional Mobility: Use assistive device(s): shower chair and single point cane and Caregiver to provide assist with: Ambulation, Steps, Transfers and ADL/IADLs Instruct on pain and instruct on strategies to control pain Problem:Pain Goal:Manage Pain Completed patient instructed on techniques to control pain including Pharmacological measures and Non-Pharmacological measures; rest and positioning/elevation. Monitor lower extremities for skin lesions and educate on proper foot care Problem:Diabetic Foot Care Goal:Manage diabetic foot care Completed patient instructed on diabetic foot care including daily skin inspection, wearing proper footwear/avoiding going barefoot, wash/dry feet thoroughly and applying moisturizer, avoiding between toes. Instruct on ongoing discharge plan Problem:Discharge Goal:Manage discharge planning Completed Ongoing Discharge plan: Discharge plan discussed with patient including frequency and duration for home OT and plan for transition to: caregiver assistance. Instruct and educate on knowledge deficits Problem:OT Learning Assessment Goal:Demonstrate understanding of education Completed Education methods include: verbal cues. Patient/Caregiver require further education to improve knowledge and compliance with fall prevention strategies, orthopedic condition management, post surgical precautions, home safety, functional transfers and home exercise program. Therapeutic Exercises Problem:OT Upper Body Strength and/or ROM Goal:Improved Strength and/or ROM Completed Instructed patient/caregiver on therapeutic exercise including: upper body exercises: shoulder flexion/extension, abduction/adduction, horizontal abduction/adduction, internal/external rotation, overhead and chest press, tricep press, elbow and wrist flexion/extension and forearm supination/pronation .Provided written and verbal cues for pacing and proper technique. Patient performed 1 set (s) of 10 reps this date and requires rest breaks. Instructed patient/caregiver for HEP to be performed 1-2 sets(s) of 10 reps, twice a day. HEP program developed, issued and reviewed. Transfer Training Problem:OT Functional Transfers Goal:Improved Functional Transfers Completed Instruct patient on safe transfers and proper techniques to perform to and from shower/tub with min assistance and verbal cues for hand placement and technique to sit on bench and swing legs in and out. min asst to lift legs in and out. . recommended on the following adaptive equipment/durable medical equipment: grab bar, patient educated not to complete without therapist at this time for safety [facility] Visit Details Visit Type -SN ROUTINE Discipline -Halfway Problems Problem Description Start Date Status Goals Interve ntions Medication Education Disciplines: Skilled Services 10/22/2023 Active 1 goal linked to scheduled/docume nted intervention 1 goal intervention scheduled/documen kurt in this visit Mental Health Disciplines: Skilled Services 10/22/2023 Active 1 goal linked to scheduled/docume nted intervention 1 goal intervention scheduled/documen kurt in this visit Sepsis Disciplines: Skilled Services 10/22/2023 Active 1 goal linked to scheduled/docume nted intervention 1 goal intervention scheduled/documen kurt in this visit Physician Specific Parameters Disciplines: Skilled Services 10/22/2023 Active 1 goal linked to scheduled/docume nted intervention 1 goal intervention scheduled/documen kurt in this visit Risk for Falls Disciplines: Skilled Services 10/22/2023 Active 1 goal linked to scheduled/docume nted intervention 1 goal intervention scheduled/documen kurt in this visit Pain Disciplines: Skilled Services 10/22/2023 Active 1 goal linked to scheduled/docume nted intervention 1 goal intervention scheduled/documen kurt in this visit Diabetic Foot Care Disciplines: Skilled Services 10/22/2023 Active 1 goal linked to scheduled/docume nted intervention 1 goal intervention scheduled/documen ukrt in this visit Nutrition/Hydration Disciplines: Skilled Services 10/22/2023 Active 1 goal linked to scheduled/docume nted intervention 1 goal intervention scheduled/documen kurt in this visit High Risk Medications Disciplines: Skilled Services 10/22/2023 Active 1 goal linked to scheduled/docume nted intervention 2 goal interventions scheduled/documen kurt in this visit SN Integumentary/Wound s Disciplines: SN 10/22/2023 Resolved on 10/31/2023 1 goal linked to scheduled/docume nted intervention 2 goal interventions scheduled/documen kurt in this visit SN Diabetes Disciplines: SN 10/22/2023 Active 1 goal linked to scheduled/docume nted intervention 2 goal interventions scheduled/documen kurt in this visit SN Cardiovascular Condition Disciplines: SN 10/22/2023 Active 1 goal linked to scheduled/docume nted intervention 1 goal intervention scheduled/documen kurt in this visit SN Learning Assessment Disciplines: SN 10/22/2023 Active 1 goal linked to scheduled/docume nted intervention 1 goal intervention scheduled/documen kurt in this visit SN Ortho Procedure/Surgery Disciplines: SN 10/22/2023 Active 1 goal linked to scheduled/docume nted intervention 1 goal intervention scheduled/documen kurt in this visit Goals Goal Associated Problem Outcome Goal Met? Visit Notes Patient/caregiver will demonstrate ability to obtain, store, identify and administer ordered medications, keep accurate medication list in home, and adhere to medication schedule Description: Patient/caregiver will demonstrate ability to obtain, store, identify and administer ordered medications, keep accurate medication list in home, and adhere to medication schedule by 12/20/23. Medication Education No Improved management of mental health condition(s) Description: Patient/caregiver will teach back mental health symptom identification and management techniques by 12/20/23. Mental Health No Patient/caregiver will be able to identify and report symptoms of sepsis Description: Patient/caregiver will be able to identify signs/symptoms of sepsis infection and will verbalize actions to take if suspected by 12/20/23. Sepsis No Patient to maintain parameters within physician-specified ranges throughout certification period Physician Specific Parameters No Manage Risk for falls Description: Patient/caregiver will verbalize knowledge of individualized fall prevention strategies by 12/20/23. Risk for Falls No Manage Pain Description: Patient/caregiver will verbalize knowledge and understanding of appropriate techniques to control pain, including pain medication and non-pharmacological techniques. Patient will verbalize or demonstrate an acceptable level of pain as evidenced by a pain score of <6/10 and improvement in ability to perform activities of daily living to be achieved by 12/20/23. Pain No Manage diabetic foot care Description: Patient/caregiver will demonstrate basic understanding of and compliance with diabetic self-care management as evidenced by verbalizing purpose of daily foot care and assessment by 12/20/23. Diabetic Foot Care No Manage Nutrition/Hydration Description: Patient/caregiver will verbalize/demonstrate knowledge of prescribed diet and/or healthy nutrition to be achieved by 12/20/23. Nutrition/Hydration No Patient/caregiver will teach back high risk medication side effect and precaution education Description: STG Patient/caregiver will verbalize understanding of high risk medication side effects and precautions to be achieved by 12/02/23. LTG Patient/caregiver will continue to verbalize understanding of high risk medication side effects and precautions throughout certification period. High Risk Medications No Patient/Caregiver will have improved healing and be free of signs and symptoms of complications Description: Patient/caregiver will verbalize management strategies to promote wound healing & prevent complications as evidenced by improved healing & no complications by 11/18/23. SN Integumentary/Wounds Completed Yes Improved management of diabetes Description: Improve diabetic management as evidenced by patient/caregiver able to teach back diabetic management strategies by 11/18/23. SN Diabetes No Improved management of cardiovascular disease Description: Improve patient/caregiver management of cardiac disease as evidenced by patient/caregiver ability to teach back cardiac management strategies by 11/18/23. SN Cardiovascular Condition No Demonstrate understanding of education Description: Patient and/or caregiver will verbalize understanding of educational instruction provided throughout certification period. SN Learning Assessment No Effective management of ortho post-op condition Description: Increase understanding of management of condition following orthopedic procedure/surgery as evidenced by patient's/caregiver's ability to teachback precautions and s/s of complications by 11/18/23. SN Ortho Procedure/Surgery No Interventions Intervention Associated Problem/Goal Status Variance Visit Notes Medication Education Description: Evaluate/instruct patient/caregiver on obtaining, storing, identifying and administering ordered medications as well as keeping accurate medication list in the home and adhereing to medication schedule Problem:Medication Education Goal:Patient/caregiv er will demonstrate ability to obtain, store, identify and administer ordered medications, keep accurate medication list in home, and adhere to medication schedule Completed Patient instructed on importance of keeping accurate medication list in home, need to take up-to-date medication list to all medical provider appointments, adhering to medication schedule, proper storage of medications and medication, route, dose, frequency, purpose, and side effects of current med list medications. Patient/caregiver will teach back mental health symptom identification and management strategies Problem:Mental Health Goal:Improved management of mental health condition(s) Completed Patient instructed on the following: signs and symptoms of increased anxiety and when to report to physician, importance of medication adherence, coping skills and techniques and crisis hotline use. Risk of Sepsis Description: Patient is at risk for sepsis. Monitor closely for s/s of sepsis. Problem:Sepsis Goal:Patient/caregiv er will be able to identify and report symptoms of sepsis Completed SPO2 Description: Notify Dr. Scott if pulse ox is <92% at rest. Problem:Physician Specific Parameters Goal:Patient to maintain parameters within physician-specified ranges throughout certification period Completed Instruct on individual fall risk factors and strategies to prevent falls and injuries caused by falls. Problem:Risk for Falls Goal:Manage Risk for falls Completed SN: Patient instructed on Managing Pain: Recommended pain medication schedule and management of side effects to minimize fall risk Reducing Medication Risks: Recommended medication schedule and instructed on management of side effects to minimize fall risk and injuries caused by falls Instruct on pain and instruct on strategies to control pain Problem:Pain Goal:Manage Pain Completed patient instructed on techniques to control pain including Non-Pharmacological measures; rest, positioning/elevati on, mobility/therapeuti c exercise and distraction. Monitor lower extremities for skin lesions and educate on proper foot care Problem:Diabetic Foot Care Goal:Manage diabetic foot care Completed patient instructed on diabetic foot care including daily skin inspection, wearing proper footwear/avoiding going barefoot, wash/dry feet thoroughly, applying moisturizer, avoiding between toes and toenail care. Define patient s appetite/hydration status and implement strategies to improve compliance with prescribed diet and/or healthy nutrition. Problem:Nutrition/Hy dration Goal:Manage Nutrition/Hydration Completed reinforced patient on implementing strategies to comply with prescribed diet, healthy nutrition and adequate hydration Opioids- educated on high risk medication Problem:High Risk Medications Goal:Patient/caregiv er will teach back high risk medication side effect and precaution education Completed patient educated on taking medication(s) as prescribed by provider. Do not stop medication or alter doses without speaking with your provider. Discuss medication effectiveness or side effect concerns with your provider and home care team. Only take opioids as prescribed, do not share your medications, and take proper precautions in storing and properly disposing of opioids once no longer needed. Possible side effects of opioid medication including sedation, decreased rate of breathing, and constipation. Report over sedation to prescribing provider and practice deep breathing techniques every hour while awake. Prevent constipation by increasing water and fiber intake, increasing activity as tolerated, and use stool softener(s) as prescribed. Hypoglycemic (including insulin)- educated on high risk medication Problem:High Risk Medications Goal:Patient/caregiv er will teach back high risk medication side effect and precaution education Completed patient educated on taking medication(s) as prescribed by provider. Do not stop medication or skip/alter doses without speaking with your provider. Discuss medication effectiveness or side effect concerns with your provider and home care team. Check blood sugars and keep log as ordered by provider. Monitor for side effects of hypoglycemia such as increased weakness or shaking, moist skin, sweating, fast heartbeat, dizziness, sudden hunger, confusion, pale skin, numbness in mouth or tongue, irritability, nervousness, unsteadiness, nightmares, bad dreams, and restless sleep. Checking your blood sugar routinely and eating a consistent diabetic diet can help regulate blood sugars and reduce side effects. Instruct patient/caregiver healing process and management measures to promote healing and avoid complications Problem:SN Integumentary/Wounds Goal:Patient/Caregiv er will have improved healing and be free of signs and symptoms of complications Completed patient instructed on the following: healing process, signs and symptoms of infection, importance of good nutrition, importance of managing blood sugars and when to report symptoms. Wound Care: Perform wound care (1) Description: Wound Care Order: Incision location: lower back Wound type (etiology): Surgical Wound Order: Cleanse in shower or with gentle soap/water. Allow steristips to self debride. May cover with dry dressing daily as needed for comfort or drainage. Frequency: daily Wound care to be completed by caregiver except for scheduled SN wound care visits. Okay to substitute comparable products from home care formulary. Problem:SN Integumentary/Wounds Goal:Patient/Caregiv er will have improved healing and be free of signs and symptoms of complications Other (specify reason) Arti ALVARENGA Instruct on diabetes disease process and management of chronic condition Description: Patient has needs for education of diabetes. Problem:SN Diabetes Goal:Improved management of diabetes Completed patient assessed and reinforced on diabetes disease process, how food and insulin affect blood sugar, diet education, how to carb count, recogonizing s/s of hypoglycemia and hyperglycemia and managing sick days as found in the diabetes self-care booklets. Ensure patient/caregiver has Living with Diabetes Booklet in home Description: SN to provide and refer to diabetes education booklet every visit. Problem:SN Diabetes Goal:Improved management of diabetes Completed Patient has diabetes self-care booklet. Instruct on cardiovascular disease process and management of condition Description: Patient has following cardiac diagnosis(es): Hypertension. Problem:SN Cardiovascular Condition Goal:Improved management of cardiovascular disease Completed patient instructed on cardiac disease process, self monitoring & symptom reporting and Cardiac Diet. Instruct and educate on knowledge deficits Problem:SN Learning Assessment Goal:Demonstrate understanding of education Completed patient verbalize and/or demonstrate understanding of nursing education completed today. Education methods include: verbal cues and written instructions. Further education required to improve knowledge and compliance with cardiac disease management and fall prevention/home safety strategies. Instruct on ortho post-op care and monitoring/preventio n of complications Description: Patient is status-post laminectomy Problem:SN Ortho Procedure/Surgery Goal:Effective management of ortho post-op condition Completed patient instructed on the following precautions/restric tions:s/s of infection, s/s of DVT and spinal precautions [facility] Visit Details Visit Type -HOT OILER ROUTINE Discipline -Physical Therapy Problems Problem Description Start Date Status Goals Interve ntions Medication Education Disciplines: Skilled Services 10/22/2023 Active 1 goal linked to scheduled/documen kurt intervention 1 goal intervention scheduled/document ed in this visit Sepsis Disciplines: Skilled Services 10/22/2023 Active 1 goal linked to scheduled/documen kurt intervention 1 goal intervention scheduled/document ed in this visit Physician Specific Parameters Disciplines: Skilled Services 10/22/2023 Active 1 goal linked to scheduled/documen kurt intervention 1 goal intervention scheduled/document ed in this visit Risk for Falls Disciplines: Skilled Services 10/22/2023 Active 1 goal linked to scheduled/documen kurt intervention 1 goal intervention scheduled/document ed in this visit Pain Disciplines: Skilled Services 10/22/2023 Active 1 goal linked to scheduled/documen kurt intervention 1 goal intervention scheduled/document ed in this visit Diabetic Foot Care Disciplines: Skilled Services 10/22/2023 Active 1 goal linked to scheduled/documen kurt intervention 1 goal intervention scheduled/document ed in this visit Discharge Disciplines: Skilled Services 10/22/2023 Active 1 goal linked to scheduled/documen kurt intervention 1 goal intervention scheduled/document ed in this visit PT Impaired muscle performance and/or ROM Disciplines: PT 10/28/2023 Active 1 goal linked to scheduled/documen kurt intervention 1 goal intervention scheduled/document ed in this visit PT Impaired mobility Disciplines: PT 10/28/2023 Active 1 goal linked to scheduled/documen kurt intervention 1 goal intervention scheduled/document ed in this visit PT Impaired gait Disciplines: PT 10/28/2023 Active 1 goal linked to scheduled/documen kurt intervention 1 goal intervention scheduled/document ed in this visit PT Orthopedic Condition Disciplines: PT 10/28/2023 Active 1 goal linked to scheduled/documen kurt intervention 1 goal intervention scheduled/document ed in this visit PT Learning Assessment Disciplines: PT 10/28/2023 Active 1 goal linked to scheduled/documen kurt intervention 1 goal intervention scheduled/document ed in this visit PT Cardiovascular Disease Disciplines: PT 10/28/2023 Active 1 goal linked to scheduled/documen kurt intervention 1 goal intervention scheduled/document ed in this visit Goals Goal Associated Problem Outcome Goal Met? Visit Notes Patient/caregiver will demonstrate ability to obtain, store, identify and administer ordered medications, keep accurate medication list in home, and adhere to medication schedule Description: Patient/caregiver will demonstrate ability to obtain, store, identify and administer ordered medications, keep accurate medication list in home, and adhere to medication schedule by 12/20/23. Medication Education No Patient/caregiver will be able to identify and report symptoms of sepsis Description: Patient/caregiver will be able to identify signs/symptoms of sepsis infection and will verbalize actions to take if suspected by 12/20/23. Sepsis No Patient to maintain parameters within physician-specified ranges throughout certification period Physician Specific Parameters No Manage Risk for falls Description: Patient/caregiver will verbalize knowledge of individualized fall prevention strategies by 12/20/23. Risk for Falls No Manage Pain Description: Patient/caregiver will verbalize knowledge and understanding of appropriate techniques to control pain, including pain medication and non-pharmacological techniques. Patient will verbalize or demonstrate an acceptable level of pain as evidenced by a pain score of <6/10 and improvement in ability to perform activities of daily living to be achieved by 12/20/23. Pain No Manage diabetic foot care Description: Patient/caregiver will demonstrate basic understanding of and compliance with diabetic self-care management as evidenced by verbalizing purpose of daily foot care and assessment by 12/20/23. Diabetic Foot Care No Manage discharge planning Description: Patient/caregiver will verbalize understanding of ongoing discharge plan provided related to disease management, arrangements for outpatient and/or community services, obtaining medications, supplies, and DME, as needed throughout certification period. Discharge No Improved Muscle Performance and/or ROM Description: LTG: Patient will demonstrate improved muscle performance to meet functional goals as evidenced by ability to increase from 10 to 15 reps of each ex with HEP in order to improve strength to allow for negotiating home entry steps. To be achieved by 11/18/23. LTG: Patient and/or caregiver will verbalize/demonstrate independence with home exercise program, to improve functional mobility, to be achieved by 11/18/23. PT Impaired muscle performance and/or ROM No Improved Transfers Description: STG: Patient will demonstrate safe transfers to/from bed and chair independently, to be achieved by 11/11/23. PT Impaired mobility No Improved Gait Description: LTG: Patient will demonstrate improved gait ability as evidenced by ambulation 200 feet with single point cane independently, to return to safe community ambulation, in order to safely walk into medical appointments, to be achieved by 11/18/23. PT Impaired gait No Manage Orthopedic Condition Description: Improve patient and/or caregiver understanding of post surgical and/or non-surgical orthopedic intervention management as evidenced by patient and/or caregiver able to verbalize, demonstrate, and teach back instruction, to be achieved by 11/18/23. PT Orthopedic Condition No Demonstrate understanding of education Description: Patient and/or caregiver will understand educational instruction to be achieved by 11/18/23. PT Learning Assessment No Manage Primary Cardiovascular Disease Description: Improve patient and/or caregiver understanding of primary cardiovascular disease management as evidenced by patient and/or caregiver able to verbalize, demonstrate, and teach back instruction, to be achieved by 11/18/23. PT Cardiovascular Disease No Interventions Intervention Associated Problem/Goal Status Variance Visit Notes Medication Education Description: Evaluate/instruct patient/caregiver on obtaining, storing, identifying and administering ordered medications as well as keeping accurate medication list in the home and adhereing to medication schedule Problem:Medication Education Goal:Patient/caregiver will demonstrate ability to obtain, store, identify and administer ordered medications, keep accurate medication list in home, and adhere to medication schedule Completed Patient instructed on adhering to medication schedule. Risk of Sepsis Description: Patient is at risk for sepsis. Monitor closely for s/s of sepsis. Problem:Sepsis Goal:Patient/caregiver will be able to identify and report symptoms of sepsis Completed SPO2 Description: Notify Dr. Scott if pulse ox is <92% at rest. Problem:Physician Specific Parameters Goal:Patient to maintain parameters within physician-specified ranges throughout certification period Completed Instruct on individual fall risk factors and strategies to prevent falls and injuries caused by falls. Problem:Risk for Falls Goal:Manage Risk for falls Completed PT: Patient instructed on Managing Impaired Functional Mobility: Use assistive device(s): quad cane Instruct on pain and instruct on strategies to control pain Problem:Pain Goal:Manage Pain Completed patient instructed on techniques to control pain including Non-Pharmacological measures; rest and use of DME/assistive devices. Monitor lower extremities for skin lesions and educate on proper foot care Problem:Diabetic Foot Care Goal:Manage diabetic foot care Completed patient instructed on diabetic foot care including wearing proper footwear/avoiding going barefoot. Instruct on ongoing discharge plan Problem:Discharge Goal:Manage discharge planning Completed Ongoing Discharge plan: Discharge plan discussed with patient including frequency and duration for home PT and plan for transition to: live independently at home without ongoing services. Physical Therapy Therapeutic Exercises Problem:PT Impaired muscle performance and/or ROM Goal:Improved Muscle Performance and/or ROM Completed patient instructed on strengthening and range of motion exercises including standing: mini squats, ham curls, calf riases 2 x 5 each seated: AP, LAq x 5 each with visual, written and verbal cues for slow pace for max benefit. patient instructed to perform home exercise program twice a day which included all the above as tolerated, stop if SOB/chest pain and report to provider. Physical Therapy Transfer Training Problem:PT Impaired mobility Goal:Improved Transfers Completed Transfer training and instruction to patient on safe transfers to and from various chairs with supervision and stand by assist and visual and verbal cues for hand placmeent, ant wt shifting. Physical Therapy Gait Training Problem:PT Impaired gait Goal:Improved Gait Completed Gait training and instruction to patient on safe ambulation with quad cane for 35 feet x 2 with supervision, with visual and verbal cues for corrections of gait deviations including WBOS, decr step height. Instruct on orthopedic bracing Description: Orthopedic bracing to include confirmation of patient wearing back brace vs no back brace. Problem:PT Orthopedic Condition Goal:Manage Orthopedic Condition Completed patient instructed on orthopedic bracing including wearing schedule. Instruct and educate on knowledge deficits Problem:PT Learning Assessment Goal:Demonstrate understanding of education Completed patient verbalize and/or demonstrate understanding of physical therapy education including orthopedic condition management, weight bearing precautions, surgical precautions, pain management, fall prevention strategies, functional activity and home exercise program. Education methods include: verbal cues, tactile cues, written instructions and visual cues. Further education required to improve knowledge and compliance with orthopedic condition management. Instruct on signs, symptoms, and management of primary cardiovascular disease Problem:PT Cardiovascular Disease Goal:Manage Primary Cardiovascular Disease Completed Instructed patient on energy conservation and exercise and activity guidelines. [facility] Visit Details Visit Type -SN ROUTINE Discipline -Halfway Problems Problem Description Start Date Status Goals Interve ntions Medication Education Disciplines: Skilled Services 10/22/2023 Active 1 goal linked to scheduled/documen kurt intervention 1 goal intervention scheduled/document ed in this visit Mental Health Disciplines: Skilled Services 10/22/2023 Active 1 goal linked to scheduled/documen kurt intervention 1 goal intervention scheduled/document ed in this visit Sepsis Disciplines: Skilled Services 10/22/2023 Active 1 goal linked to scheduled/documen kurt intervention 1 goal intervention scheduled/document ed in this visit Physician Specific Parameters Disciplines: Skilled Services 10/22/2023 Active 1 goal linked to scheduled/documen kurt intervention 1 goal intervention scheduled/document ed in this visit Risk for Falls Disciplines: Skilled Services 10/22/2023 Active 1 goal linked to scheduled/documen kurt intervention 1 goal intervention scheduled/document ed in this visit Pain Disciplines: Skilled Services 10/22/2023 Active 1 goal linked to scheduled/documen kurt intervention 1 goal intervention scheduled/document ed in this visit Diabetic Foot Care Disciplines: Skilled Services 10/22/2023 Active 1 goal linked to scheduled/documen kurt intervention 1 goal intervention scheduled/document ed in this visit Nutrition/Hydration Disciplines: Skilled Services 10/22/2023 Active 1 goal linked to scheduled/documen kurt intervention 1 goal intervention scheduled/document ed in this visit High Risk Medications Disciplines: Skilled Services 10/22/2023 Active 1 goal linked to scheduled/documen kurt intervention 2 goal interventions scheduled/document ed in this visit SN Diabetes Disciplines: SN 10/22/2023 Active 1 goal linked to scheduled/documen kurt intervention 2 goal interventions scheduled/document ed in this visit SN Cardiovascular Condition Disciplines: SN 10/22/2023 Active 1 goal linked to scheduled/documen kurt intervention 1 goal intervention scheduled/document ed in this visit SN Learning Assessment Disciplines: SN 10/22/2023 Active 1 goal linked to scheduled/documen kurt intervention 1 goal intervention scheduled/document ed in this visit SN Ortho Procedure/Surgery Disciplines: SN 10/22/2023 Active 1 goal linked to scheduled/documen kurt intervention 1 goal intervention scheduled/document ed in this visit Goals Goal Associated Problem Outcome Goal Met? Visit Notes Patient/caregiver will demonstrate ability to obtain, store, identify and administer ordered medications, keep accurate medication list in home, and adhere to medication schedule Description: Patient/caregiver will demonstrate ability to obtain, store, identify and administer ordered medications, keep accurate medication list in home, and adhere to medication schedule by 12/20/23. Medication Education No Improved management of mental health condition(s) Description: Patient/caregiver will teach back mental health symptom identification and management techniques by 12/20/23. Mental Health No Patient/caregiver will be able to identify and report symptoms of sepsis Description: Patient/caregiver will be able to identify signs/symptoms of sepsis infection and will verbalize actions to take if suspected by 12/20/23. Sepsis No Patient to maintain parameters within physician-specified ranges throughout certification period Physician Specific Parameters No Manage Risk for falls Description: Patient/caregiver will verbalize knowledge of individualized fall prevention strategies by 12/20/23. Risk for Falls No Manage Pain Description: Patient/caregiver will verbalize knowledge and understanding of appropriate techniques to control pain, including pain medication and non-pharmacological techniques. Patient will verbalize or demonstrate an acceptable level of pain as evidenced by a pain score of <6/10 and improvement in ability to perform activities of daily living to be achieved by 12/20/23. Pain No Manage diabetic foot care Description: Patient/caregiver will demonstrate basic understanding of and compliance with diabetic self-care management as evidenced by verbalizing purpose of daily foot care and assessment by 12/20/23. Diabetic Foot Care No Manage Nutrition/Hydration Description: Patient/caregiver will verbalize/demonstrate knowledge of prescribed diet and/or healthy nutrition to be achieved by 12/20/23. Nutrition/Hydration No Patient/caregiver will teach back high risk medication side effect and precaution education Description: STG Patient/caregiver will verbalize understanding of high risk medication side effects and precautions to be achieved by 12/02/23. LTG Patient/caregiver will continue to verbalize understanding of high risk medication side effects and precautions throughout certification period. High Risk Medications No Improved management of diabetes Description: Improve diabetic management as evidenced by patient/caregiver able to teach back diabetic management strategies by 11/18/23. SN Diabetes No Improved management of cardiovascular disease Description: Improve patient/caregiver management of cardiac disease as evidenced by patient/caregiver ability to teach back cardiac management strategies by 11/18/23. SN Cardiovascular Condition No Demonstrate understanding of education Description: Patient and/or caregiver will verbalize understanding of educational instruction provided throughout certification period. SN Learning Assessment No Effective management of ortho post-op condition Description: Increase understanding of management of condition following orthopedic procedure/surgery as evidenced by patient's/caregiver's ability to teachback precautions and s/s of complications by 11/18/23. SN Ortho Procedure/Surgery No Interventions Intervention Associated Problem/Goal Status Variance Visit Notes Medication Education Description: Evaluate/instruct patient/caregiver on obtaining, storing, identifying and administering ordered medications as well as keeping accurate medication list in the home and adhereing to medication schedule Problem:Medication Education Goal:Patient/caregiver will demonstrate ability to obtain, store, identify and administer ordered medications, keep accurate medication list in home, and adhere to medication schedule Completed Patient instructed on importance of keeping accurate medication list in home, need to take up-to-date medication list to all medical provider appointments, adhering to medication schedule and proper storage of medications. Patient/caregiver will teach back mental health symptom identification and management strategies Problem:Mental Health Goal:Improved management of mental health condition(s) Completed Patient instructed on the following: signs and symptoms of increased anxiety and when to report to physician, importance of medication adherence, coping skills and techniques, use of relaxation techniques, use of diversional activities, seeking support from family/friends and crisis hotline use. Risk of Sepsis Description: Patient is at risk for sepsis. Monitor closely for s/s of sepsis. Problem:Sepsis Goal:Patient/caregiver will be able to identify and report symptoms of sepsis Completed SPO2 Description: Notify Dr. Scott if pulse ox is <92% at rest. Problem:Physician Specific Parameters Goal:Patient to maintain parameters within physician-specified ranges throughout certification period Completed Instruct on individual fall risk factors and strategies to prevent falls and injuries caused by falls. Problem:Risk for Falls Goal:Manage Risk for falls Completed SN: Patient instructed on Managing Impaired Functional Mobility: Use assistive device(s): single point cane and Caregiver to provide assist with: ADL/IADLs Managing Pain: Recommended pain medication schedule and management of side effects to minimize fall risk Instruct on pain and instruct on strategies to control pain Problem:Pain Goal:Manage Pain Completed patient instructed on techniques to control pain including Non-Pharmacological measures; rest, positioning/elevatio n, mobility/therapeutic exercise and distraction. Monitor lower extremities for skin lesions and educate on proper foot care Problem:Diabetic Foot Care Goal:Manage diabetic foot care Completed patient instructed on diabetic foot care including daily skin inspection, wearing proper footwear/avoiding going barefoot, wash/dry feet thoroughly, applying moisturizer, avoiding between toes and toenail care. Define patient s appetite/hydration status and implement strategies to improve compliance with prescribed diet and/or healthy nutrition. Problem:Nutrition/Hydr ation Goal:Manage Nutrition/Hydration Completed reinforced patient on implementing strategies to comply with prescribed diet, healthy nutrition and adequate hydration Opioids- educated on high risk medication Problem:High Risk Medications Goal:Patient/caregiver will teach back high risk medication side effect and precaution education Completed patient educated on taking medication(s) as prescribed by provider. Do not stop medication or alter doses without speaking with your provider. Discuss medication effectiveness or side effect concerns with your provider and home care team. Only take opioids as prescribed, do not share your medications, and take proper precautions in storing and properly disposing of opioids once no longer needed. Possible side effects of opioid medication including sedation, decreased rate of breathing, and constipation. Report over sedation to prescribing provider and practice deep breathing techniques every hour while awake. Prevent constipation by increasing water and fiber intake, increasing activity as tolerated, and use stool softener(s) as prescribed. Hypoglycemic (including insulin)- educated on high risk medication Problem:High Risk Medications Goal:Patient/caregiver will teach back high risk medication side effect and precaution education Completed patient educated on taking medication(s) as prescribed by provider. Do not stop medication or skip/alter doses without speaking with your provider. Discuss medication effectiveness or side effect concerns with your provider and home care team. Check blood sugars and keep log as ordered by provider. Monitor for side effects of hypoglycemia such as increased weakness or shaking, moist skin, sweating, fast heartbeat, dizziness, sudden hunger, confusion, pale skin, numbness in mouth or tongue, irritability, nervousness, unsteadiness, nightmares, bad dreams, and restless sleep. Checking your blood sugar routinely and eating a consistent diabetic diet can help regulate blood sugars and reduce side effects. Instruct on diabetes disease process and management of chronic condition Description: Patient has needs for education of diabetes. Problem:SN Diabetes Goal:Improved management of diabetes Completed patient assessed and reinforced on diabetes disease process, how food and insulin affect blood sugar, diet education, how to carb count, recogonizing s/s of hypoglycemia and hyperglycemia and managing sick days as found in the diabetes self-care booklets. Ensure patient/caregiver has Living with Diabetes Booklet in home Description: SN to provide and refer to diabetes education booklet every visit. Problem:SN Diabetes Goal:Improved management of diabetes Completed Patient has diabetes self-care booklet. Instruct on cardiovascular disease process and management of condition Description: Patient has following cardiac diagnosis(es): Hypertension. Problem:SN Cardiovascular Condition Goal:Improved management of cardiovascular disease Completed patient instructed on cardiac disease process, self monitoring & symptom reporting and Cardiac Diet. Instruct and educate on knowledge deficits Problem:SN Learning Assessment Goal:Demonstrate understanding of education Completed patient verbalize and/or demonstrate understanding of nursing education completed today. Education methods include: verbal cues and written instructions. Further education required to improve knowledge and compliance with cardiac disease management and diabetic care management. Instruct on ortho post-op care and monitoring/prevention of complications Description: Patient is status-post laminectomy Problem:SN Ortho Procedure/Surgery Goal:Effective management of ortho post-op condition Completed patient instructed on the following precautions/restrict ions:s/s of infection, s/s of DVT and spinal precautions [facility] Visit Details Visit Type -OT ROUTINE Discipline -Occupational Therapy Problems Problem Description Start Date Status Goals Interve ntions Physician Specific Parameters Disciplines: Skilled Services 10/22/2023 Active 1 goal linked to scheduled/document ed intervention 1 goal intervention scheduled/documente d in this visit Pain Disciplines: Skilled Services 10/22/2023 Active 1 goal linked to scheduled/document ed intervention 1 goal intervention scheduled/documente d in this visit Discharge Disciplines: Skilled Services 10/22/2023 Active 1 goal linked to scheduled/document ed intervention 1 goal intervention scheduled/documente d in this visit OT Learning Assessment Disciplines: OT 10/27/2023 Active 1 goal linked to scheduled/document ed intervention 1 goal intervention scheduled/documente d in this visit OT ADLs/IADLs Disciplines: OT 10/27/2023 Active 1 goal linked to scheduled/document ed intervention 1 goal intervention scheduled/documente d in this visit OT Upper Body Strength and/or ROM Disciplines: OT 10/27/2023 Active 1 goal linked to scheduled/document ed intervention 1 goal intervention scheduled/documente d in this visit OT Functional Transfers Disciplines: OT 10/27/2023 Active 1 goal linked to scheduled/document ed intervention 1 goal intervention scheduled/documente d in this visit OT Balance Disciplines: OT 10/27/2023 Active 1 goal linked to scheduled/document ed intervention 1 goal intervention scheduled/documente d in this visit Goals Goal Associated Problem Outcome Goal Met? Visit Notes Patient to maintain parameters within physician-specified ranges throughout certification period Physician Specific Parameters No Manage Pain Description: Patient/caregiver will verbalize knowledge and understanding of appropriate techniques to control pain, including pain medication and non-pharmacological techniques. Patient will verbalize or demonstrate an acceptable level of pain as evidenced by a pain score of <6/10 and improvement in ability to perform activities of daily living to be achieved by 12/20/23. Pain No Manage discharge planning Description: Patient/caregiver will verbalize understanding of ongoing discharge plan provided related to disease management, arrangements for outpatient and/or community services, obtaining medications, supplies, and DME, as needed throughout certification period. Discharge No Demonstrate understanding of education Description: Patient and/or caregiver will understand educational instruction to be achieved by 11/18/23. OT Learning Assessment No Improved ADLs/IADLs performance Description: patient will verbalize understanding of instructions and demonstrate improved performance of lower body dressing, bathing and meal prep to independence as evidenced by improved Kelin ADL Index score to at least increase by 10 to be achieved by 11/18/23. OT ADLs/IADLs Completed Yes goa lmet Improved Strength and/or ROM Description: patient will verbalize/demonstrate independence with home exercise program, to improve functional performance, to be achieved by 11/18/23. OT Upper Body Strength and/or ROM No Improved Functional Transfers Description: patient will demonstrate safe transfers to/from toilet and shower/tub with independent assistance and minimal verbal cues with use of DME to be achieved by 11/18/23. OT Functional Transfers No Improved Balance Description: Patient will demonstrate improved standing balance to meet functional goals as evidenced by fair + balance with unlateral support with tolerance x 3 min during functilan adl/ue task to be achieved by 11/18/23. OT Balance No Interventions Intervention Associated Problem/Goal Status Variance Visit Notes SPO2 Description: Notify Dr. Scott if pulse ox is <92% at rest. Problem:Physician Specific Parameters Goal:Patient to maintain parameters within physician-specified ranges throughout certification period Completed Instruct on pain and instruct on strategies to control pain Problem:Pain Goal:Manage Pain Completed patient instructed on techniques to control pain including Pharmacological measures and Non-Pharmacological measures; rest and positioning/elevation. Instruct on ongoing discharge plan Problem:Discharge Goal:Manage discharge planning Completed Ongoing Discharge plan: Discharge plan discussed with patient including frequency and duration for home OT and plan for transition to: caregiver assistance. Instruct and educate on knowledge deficits Problem:OT Learning Assessment Goal:Demonstrate understanding of education Completed Education methods include: verbal cues. Patient/Caregiver require further education to improve knowledge and compliance with fall prevention strategies, orthopedic condition management, pain management, post surgical precautions, home safety, functional adl/iadl activity and functional transfers. ADL/IADLs Training Problem:OT ADLs/IADLs Goal:Improved ADLs/IADLs performance Completed Instruct patient on adaptive equipment/DME use and safety and falls prevention and handled sponge use to facilite improved performance of grooming, upper body dressing, lower body dressing, bathing and toileting hygiene with independence Therapeutic Exercises Problem:OT Upper Body Strength and/or ROM Goal:Improved Strength and/or ROM Completed Instructed patient/caregiver on therapeutic exercise including: upper body exercises: shoulder flexion/extension, abduction/adduction, horizontal abduction/adduction, internal/external rotation, overhead and chest press, tricep press, elbow and wrist flexion/extension and forearm supination/pronation patient reports he is completing ue hep daily with no questions at this time Transfer Training Problem:OT Functional Transfers Goal:Improved Functional Transfers Completed Instruct patient on safe transfers and proper techniques to perform to and from toilet indep and shower/tub with superv assistance to shower chair with sit and swing method. Pt with cues on hand placement for safety Balance Training Problem:OT Balance Goal:Improved Balance Completed Developed, implemented, and instructed patient on standing balance patient standing during grooming and dressing needs with fair + balance and unilateral support. Pt tolerating standing x 4 min documented in this encounter [facility]'s home Plan of care note* Visit Details Visit Type -HOT OILER ROUTINE Discipline -Physical Therapy Problems Problem Description Start Date Status Goals Interve ntions Medication Education Disciplines: Skilled Services 10/22/2023 Active 1 goal linked to scheduled/documen kurt intervention 1 goal intervention scheduled/document ed in this visit Sepsis Disciplines: Skilled Services 10/22/2023 Active 1 goal linked to scheduled/documen kurt intervention 1 goal intervention scheduled/document ed in this visit Physician Specific Parameters Disciplines: Skilled Services 10/22/2023 Active 1 goal linked to scheduled/documen kurt intervention 1 goal intervention scheduled/document ed in this visit Risk for Falls Disciplines: Skilled Services 10/22/2023 Active 1 goal linked to scheduled/documen kurt intervention 1 goal intervention scheduled/document ed in this visit Pain Disciplines: Skilled Services 10/22/2023 Active 1 goal linked to scheduled/documen kurt intervention 1 goal intervention scheduled/document ed in this visit Diabetic Foot Care Disciplines: Skilled Services 10/22/2023 Active 1 goal linked to scheduled/documen kurt intervention 1 goal intervention scheduled/document ed in this visit Discharge Disciplines: Skilled Services 10/22/2023 Active 1 goal linked to scheduled/documen kurt intervention 1 goal intervention scheduled/document ed in this visit PT Impaired muscle performance and/or ROM Disciplines: PT 10/28/2023 Active 1 goal linked to scheduled/documen kurt intervention 1 goal intervention scheduled/document ed in this visit PT Impaired gait Disciplines: PT 10/28/2023 Active 1 goal linked to scheduled/documen kurt intervention 1 goal intervention scheduled/document ed in this visit PT Impaired balance Disciplines: PT 10/28/2023 Active 1 goal linked to scheduled/documen kurt intervention 1 goal intervention scheduled/document ed in this visit PT Orthopedic Condition Disciplines: PT 10/28/2023 Active 1 goal linked to scheduled/documen kurt intervention 1 goal intervention scheduled/document ed in this visit PT Learning Assessment Disciplines: PT 10/28/2023 Active 1 goal linked to scheduled/documen kurt intervention 1 goal intervention scheduled/document ed in this visit PT Cardiovascular Disease Disciplines: PT 10/28/2023 Active 1 goal linked to scheduled/documen kurt intervention 1 goal intervention scheduled/document ed in this visit Goals Goal Associated Problem Outcome Goal Met? Visit Notes Patient/caregiver will demonstrate ability to obtain, store, identify and administer ordered medications, keep accurate medication list in home, and adhere to medication schedule Description: Patient/caregiver will demonstrate ability to obtain, store, identify and administer ordered medications, keep accurate medication list in home, and adhere to medication schedule by 12/20/23. Medication Education No Patient/caregiver will be able to identify and report symptoms of sepsis Description: Patient/caregiver will be able to identify signs/symptoms of sepsis infection and will verbalize actions to take if suspected by 12/20/23. Sepsis No Patient to maintain parameters within physician-specified ranges throughout certification period Physician Specific Parameters No Manage Risk for falls Description: Patient/caregiver will verbalize knowledge of individualized fall prevention strategies by 12/20/23. Risk for Falls No Manage Pain Description: Patient/caregiver will verbalize knowledge and understanding of appropriate techniques to control pain, including pain medication and non-pharmacological techniques. Patient will verbalize or demonstrate an acceptable level of pain as evidenced by a pain score of <6/10 and improvement in ability to perform activities of daily living to be achieved by 12/20/23. Pain No Manage diabetic foot care Description: Patient/caregiver will demonstrate basic understanding of and compliance with diabetic self-care management as evidenced by verbalizing purpose of daily foot care and assessment by 12/20/23. Diabetic Foot Care No Manage discharge planning Description: Patient/caregiver will verbalize understanding of ongoing discharge plan provided related to disease management, arrangements for outpatient and/or community services, obtaining medications, supplies, and DME, as needed throughout certification period. Discharge No Improved Muscle Performance and/or ROM Description: LTG: Patient will demonstrate improved muscle performance to meet functional goals as evidenced by ability to increase from 10 to 15 reps of each ex with HEP in order to improve strength to allow for negotiating home entry steps. To be achieved by 11/18/23. LTG: Patient and/or caregiver will verbalize/demonstrate independence with home exercise program, to improve functional mobility, to be achieved by 11/18/23. PT Impaired muscle performance and/or ROM No Improved Gait Description: LTG: Patient will demonstrate improved gait ability as evidenced by ambulation 200 feet with single point cane independently, to return to safe community ambulation, in order to safely walk into medical appointments, to be achieved by 11/18/23. PT Impaired gait No Improved Balance Description: LTG: Patient will demonstrate improved standing balance to meet functional goals as evidenced by TUG score of 25 sec to be achieved by 11/18/23. PT Impaired balance No Manage Orthopedic Condition Description: Improve patient and/or caregiver understanding of post surgical and/or non-surgical orthopedic intervention management as evidenced by patient and/or caregiver able to verbalize, demonstrate, and teach back instruction, to be achieved by 11/18/23. PT Orthopedic Condition No Demonstrate understanding of education Description: Patient and/or caregiver will understand educational instruction to be achieved by 11/18/23. PT Learning Assessment No Manage Primary Cardiovascular Disease Description: Improve patient and/or caregiver understanding of primary cardiovascular disease management as evidenced by patient and/or caregiver able to verbalize, demonstrate, and teach back instruction, to be achieved by 11/18/23. PT Cardiovascular Disease No Interventions Intervention Associated Problem/Goal Status Variance Visit Notes Medication Education Description: Evaluate/instruct patient/caregiver on obtaining, storing, identifying and administering ordered medications as well as keeping accurate medication list in the home and adhereing to medication schedule Problem:Medication Education Goal:Patient/caregive r will demonstrate ability to obtain, store, identify and administer ordered medications, keep accurate medication list in home, and adhere to medication schedule Completed Patient instructed on adhering to medication schedule. Risk of Sepsis Description: Patient is at risk for sepsis. Monitor closely for s/s of sepsis. Problem:Sepsis Goal:Patient/caregive r will be able to identify and report symptoms of sepsis Completed SPO2 Description: Notify Dr. Scott if pulse ox is <92% at rest. Problem:Physician Specific Parameters Goal:Patient to maintain parameters within physician-specified ranges throughout certification period Completed Instruct on individual fall risk factors and strategies to prevent falls and injuries caused by falls. Problem:Risk for Falls Goal:Manage Risk for falls Completed pt: Patient instructed on Managing Impaired Functional Mobility: Use assistive device(s): quad cane Instruct on pain and instruct on strategies to control pain Problem:Pain Goal:Manage Pain Completed patient instructed on techniques to control pain including Pharmacological measures and Non-Pharmacological measures; rest, positioning/elevation, mobility/therapeutic exercise and use of DME/assistive devices. Monitor lower extremities for skin lesions and educate on proper foot care Problem:Diabetic Foot Care Goal:Manage diabetic foot care Completed patient instructed on diabetic foot care including wearing proper footwear/avoiding going barefoot. Instruct on ongoing discharge plan Problem:Discharge Goal:Manage discharge planning Completed Ongoing Discharge plan: Discharge plan discussed with patient including frequency and duration for home PT and plan for transition to: live independently at home without ongoing services. Physical Therapy Therapeutic Exercises Problem:PT Impaired muscle performance and/or ROM Goal:Improved Muscle Performance and/or ROM Completed patient instructed on strengthening and range of motion exercises including standing: mini squats, ham curls, calf riases 2 x 5 each seated: AP, LAQ 2 x 5 each with visual, written and verbal cues for slow pace for max benefit. patient instructed to perform home exercise program twice a day which included all the above as tolerated, stop if SOB/chest pain and report to provider. Physical Therapy Gait Training Problem:PT Impaired gait Goal:Improved Gait Completed Gait training and instruction to patient on safe ambulation with quad cane for 100 feet x 1 with supervision, with visual and verbal cues for corrections of gait deviations including WBOS, slow melody, decr step height Physical Therapy Balance Training Problem:PT Impaired balance Goal:Improved Balance Completed Developed, implemented, and instructed patient on standing balance exercises including side stepping at railing 5/5. Instruct on orthopedic bracing Description: Orthopedic bracing to include confirmation of patient wearing back brace vs no back brace. Problem:PT Orthopedic Condition Goal:Manage Orthopedic Condition Completed patient instructed on orthopedic bracing including wearing schedule. Instruct and educate on knowledge deficits Problem:PT Learning Assessment Goal:Demonstrate understanding of education Completed patient and caregiver verbalize and/or demonstrate understanding of physical therapy education including orthopedic condition management, weight bearing precautions, pain management, fall prevention strategies, functional activity and home exercise program. Education methods include: verbal cues, tactile cues, written instructions and visual cues. Further education required to improve knowledge and compliance with orthopedic condition management and functional activity. Instruct on signs, symptoms, and management of primary cardiovascular disease Problem:PT Cardiovascular Disease Goal:Manage Primary Cardiovascular Disease Completed Instructed patient on energy conservation and exercise and activity guidelines. documented in this encounter [facility]'s home Plan of care note* Visit Details Visit Type -HOT OILER ROUTINE Discipline -Physical Therapy Problems Problem Description Start Date Status Goals Interve ntions Medication Education Disciplines: Skilled Services 10/22/2023 Active 1 goal linked to scheduled/documen kurt intervention 1 goal intervention scheduled/document ed in this visit Sepsis Disciplines: Skilled Services 10/22/2023 Active 1 goal linked to scheduled/documen kurt intervention 1 goal intervention scheduled/document ed in this visit Physician Specific Parameters Disciplines: Skilled Services 10/22/2023 Active 1 goal linked to scheduled/documen kurt intervention 1 goal intervention scheduled/document ed in this visit Risk for Falls Disciplines: Skilled Services 10/22/2023 Active 1 goal linked to scheduled/documen kurt intervention 1 goal intervention scheduled/document ed in this visit Pain Disciplines: Skilled Services 10/22/2023 Active 1 goal linked to scheduled/documen kurt intervention 1 goal intervention scheduled/document ed in this visit Diabetic Foot Care Disciplines: Skilled Services 10/22/2023 Active 1 goal linked to scheduled/documen kurt intervention 1 goal intervention scheduled/document ed in this visit Discharge Disciplines: Skilled Services 10/22/2023 Active 1 goal linked to scheduled/documen kurt intervention 2 goal interventions scheduled/document ed in this visit PT Impaired muscle performance and/or ROM Disciplines: PT 10/28/2023 Active 1 goal linked to scheduled/documen kurt intervention 1 goal intervention scheduled/document ed in this visit PT Impaired mobility Disciplines: PT 10/28/2023 Active 1 goal linked to scheduled/documen kurt intervention 1 goal intervention scheduled/document ed in this visit PT Impaired gait Disciplines: PT 10/28/2023 Active 1 goal linked to scheduled/documen kurt intervention 1 goal intervention scheduled/document ed in this visit PT Impaired balance Disciplines: PT 10/28/2023 Active 1 goal linked to scheduled/documen kurt intervention 1 goal intervention scheduled/document ed in this visit PT Orthopedic Condition Disciplines: PT 10/28/2023 Active 1 goal linked to scheduled/documen kurt intervention 1 goal intervention scheduled/document ed in this visit PT Learning Assessment Disciplines: PT 10/28/2023 Active 1 goal linked to scheduled/documen kurt intervention 1 goal intervention scheduled/document ed in this visit PT Cardiovascular Disease Disciplines: PT 10/28/2023 Active 1 goal linked to scheduled/documen kurt intervention 1 goal intervention scheduled/document ed in this visit Goals Goal Associated Problem Outcome Goal Met? Visit Notes Patient/caregiver will demonstrate ability to obtain, store, identify and administer ordered medications, keep accurate medication list in home, and adhere to medication schedule Description: Patient/caregiver will demonstrate ability to obtain, store, identify and administer ordered medications, keep accurate medication list in home, and adhere to medication schedule by 12/20/23. Medication Education No Patient/caregiver will be able to identify and report symptoms of sepsis Description: Patient/caregiver will be able to identify signs/symptoms of sepsis infection and will verbalize actions to take if suspected by 12/20/23. Sepsis No Patient to maintain parameters within physician-specified ranges throughout certification period Physician Specific Parameters No Manage Risk for falls Description: Patient/caregiver will verbalize knowledge of individualized fall prevention strategies by 12/20/23. Risk for Falls No Manage Pain Description: Patient/caregiver will verbalize knowledge and understanding of appropriate techniques to control pain, including pain medication and non-pharmacological techniques. Patient will verbalize or demonstrate an acceptable level of pain as evidenced by a pain score of <6/10 and improvement in ability to perform activities of daily living to be achieved by 12/20/23. Pain No Manage diabetic foot care Description: Patient/caregiver will demonstrate basic understanding of and compliance with diabetic self-care management as evidenced by verbalizing purpose of daily foot care and assessment by 12/20/23. Diabetic Foot Care No Manage discharge planning Description: Patient/caregiver will verbalize understanding of ongoing discharge plan provided related to disease management, arrangements for outpatient and/or community services, obtaining medications, supplies, and DME, as needed throughout certification period. Discharge No Improved Muscle Performance and/or ROM Description: LTG: Patient will demonstrate improved muscle performance to meet functional goals as evidenced by ability to increase from 10 to 15 reps of each ex with HEP in order to improve strength to allow for negotiating home entry steps. To be achieved by 11/18/23. LTG: Patient and/or caregiver will verbalize/demonstrate independence with home exercise program, to improve functional mobility, to be achieved by 11/18/23. PT Impaired muscle performance and/or ROM No Improved Transfers Description: STG: Patient will demonstrate safe transfers to/from bed and chair independently, to be achieved by 11/11/23. PT Impaired mobility No Improved Gait Description: LTG: Patient will demonstrate improved gait ability as evidenced by ambulation 200 feet with single point cane independently, to return to safe community ambulation, in order to safely walk into medical appointments, to be achieved by 11/18/23. PT Impaired gait No Improved Balance Description: LTG: Patient will demonstrate improved standing balance to meet functional goals as evidenced by TUG score of 25 sec to be achieved by 11/18/23. PT Impaired balance No Manage Orthopedic Condition Description: Improve patient and/or caregiver understanding of post surgical and/or non-surgical orthopedic intervention management as evidenced by patient and/or caregiver able to verbalize, demonstrate, and teach back instruction, to be achieved by 11/18/23. PT Orthopedic Condition No Demonstrate understanding of education Description: Patient and/or caregiver will understand educational instruction to be achieved by 11/18/23. PT Learning Assessment No Manage Primary Cardiovascular Disease Description: Improve patient and/or caregiver understanding of primary cardiovascular disease management as evidenced by patient and/or caregiver able to verbalize, demonstrate, and teach back instruction, to be achieved by 11/18/23. PT Cardiovascular Disease No Interventions Intervention Associated Problem/Goal Status Variance Visit Notes Medication Education Description: Evaluate/instruct patient/caregiver on obtaining, storing, identifying and administering ordered medications as well as keeping accurate medication list in the home and adhereing to medication schedule Problem:Medication Education Goal:Patient/caregive r will demonstrate ability to obtain, store, identify and administer ordered medications, keep accurate medication list in home, and adhere to medication schedule Completed Patient instructed on adhering to medication schedule. Risk of Sepsis Description: Patient is at risk for sepsis. Monitor closely for s/s of sepsis. Problem:Sepsis Goal:Patient/caregive r will be able to identify and report symptoms of sepsis Completed SPO2 Description: Notify Dr. Scott if pulse ox is <92% at rest. Problem:Physician Specific Parameters Goal:Patient to maintain parameters within physician-specified ranges throughout certification period Completed Instruct on individual fall risk factors and strategies to prevent falls and injuries caused by falls. Problem:Risk for Falls Goal:Manage Risk for falls Completed pt: Patient instructed on Managing Impaired Functional Mobility: Use assistive device(s): quad cane Instruct on pain and instruct on strategies to control pain Problem:Pain Goal:Manage Pain Completed patient instructed on techniques to control pain including Pharmacological measures and Non-Pharmacological measures; rest, positioning/elevation and mobility/therapeutic exercise. Monitor lower extremities for skin lesions and educate on proper foot care Problem:Diabetic Foot Care Goal:Manage diabetic foot care Completed patient instructed on diabetic foot care including wearing proper footwear/avoiding going barefoot. Instruct on final discharge plan and deliver discharge instructions Problem:Discharge Goal:Manage discharge planning Completed Delivered Discharge plan: Discharge plan discussed with patient for plan for transition to: caregiver assistance Instruct on ongoing discharge plan Problem:Discharge Goal:Manage discharge planning Completed Ongoing Discharge plan: Discharge plan discussed with patient including frequency and duration for home PT and plan for transition to: caregiver assistance. Physical Therapy Therapeutic Exercises Problem:PT Impaired muscle performance and/or ROM Goal:Improved Muscle Performance and/or ROM Completed patient instructed on strengthening and range of motion exercises including standing: mini squats, ham curls, calf riases 2 x 5 each seated: AP, LAQ 2 x 5 each with visual, written and verbal cues for slow pace for max benefit. patient instructed to perform home exercise program twice a day which included all the above as tolerated, stop if SOB/chest pain and report to provider. Physical Therapy Transfer Training Problem:PT Impaired mobility Goal:Improved Transfers Completed Transfer training and instruction to patient on safe transfers to and from chair with supervision and stand by assist and visual and verbal cues for hand placmeent, ant wt shifting, ensuring stable once standing before beginning to walk Physical Therapy Gait Training Problem:PT Impaired gait Goal:Improved Gait Completed Gait training and instruction to patient on safe ambulation with quad cane and railing along sanders for 90 feet x 1 with supervision, with visual and verbal cues for corrections of gait deviations including WBOS, tends to look down at cane placement Physical Therapy Balance Training Problem:PT Impaired balance Goal:Improved Balance Completed Developed, implemented, and instructed patient on standing balance exercises including side stepping at railing 03/14 stepping SLS 2 x 10secs, 2 hand support on railing. Instruct on orthopedic bracing Description: Orthopedic bracing to include confirmation of patient wearing back brace vs no back brace. Problem:PT Orthopedic Condition Goal:Manage Orthopedic Condition Completed patient instructed on orthopedic bracing including wearing schedule. Instruct and educate on knowledge deficits Problem:PT Learning Assessment Goal:Demonstrate understanding of education Completed patient verbalize and/or demonstrate understanding of physical therapy education including orthopedic condition management, surgical precautions, pain management, fall prevention strategies, functional activity and home exercise program. Education methods include: verbal cues, written instructions and visual cues. Further education required to improve knowledge and compliance with orthopedic condition management and functional activity. Instruct on signs, symptoms, and management of primary cardiovascular disease Problem:PT Cardiovascular Disease Goal:Manage Primary Cardiovascular Disease Completed Instructed patient on energy conservation and exercise and activity guidelines. documented in this encounter [facility]'s home Plan of care note* Visit Details Visit Type -SN ROUTINE Discipline -Halfway Problems Problem Description Start Date Status Goals Interve ntions Medication Education Disciplines: Skilled Services 10/22/2023 Active 1 goal linked to scheduled/docume nted intervention 1 goal intervention scheduled/documen kurt in this visit Mental Health Disciplines: Skilled Services 10/22/2023 Active 1 goal linked to scheduled/docume nted intervention 1 goal intervention scheduled/documen kurt in this visit Sepsis Disciplines: Skilled Services 10/22/2023 Active 1 goal linked to scheduled/docume nted intervention 1 goal intervention scheduled/documen kurt in this visit Physician Specific Parameters Disciplines: Skilled Services 10/22/2023 Active 1 goal linked to scheduled/docume nted intervention 1 goal intervention scheduled/documen kurt in this visit Risk for Falls Disciplines: Skilled Services 10/22/2023 Active 1 goal linked to scheduled/docume nted intervention 1 goal intervention scheduled/documen kurt in this visit Pain Disciplines: Skilled Services 10/22/2023 Active 1 goal linked to scheduled/docume nted intervention 1 goal intervention scheduled/documen kurt in this visit Diabetic Foot Care Disciplines: Skilled Services 10/22/2023 Active 1 goal linked to scheduled/docume nted intervention 1 goal intervention scheduled/documen kurt in this visit Nutrition/Hydration Disciplines: Skilled Services 10/22/2023 Active 1 goal linked to scheduled/docume nted intervention 1 goal intervention scheduled/documen kurt in this visit High Risk Medications Disciplines: Skilled Services 10/22/2023 Active 1 goal linked to scheduled/docume nted intervention 1 goal intervention scheduled/documen kurt in this visit SN Diabetes Disciplines: 10/22/2023 Active 1 goal linked to scheduled/docume nted intervention 2 goal interventions scheduled/documen kurt in this visit SN Cardiovascular Condition Disciplines: 10/22/2023 Resolved on 11/10/2023 1 goal linked to scheduled/docume nted intervention 1 goal intervention scheduled/documen kurt in this visit SN Learning Assessment Disciplines: 10/22/2023 Active 1 goal linked to scheduled/docume nted intervention 1 goal intervention scheduled/documen kurt in this visit SN Ortho Procedure/Surgery Disciplines: 10/22/2023 Active 1 goal linked to scheduled/docume nted intervention 1 goal intervention scheduled/documen kurt in this visit Declined Referral Disciplines: Skilled Services 10/22/2023 Resolved on 11/10/2023 1 goal linked to scheduled/docume nted intervention Goals Goal Associated Problem Outcome Goal Met? Visit Notes Patient/caregiver will demonstrate ability to obtain, store, identify and administer ordered medications, keep accurate medication list in home, and adhere to medication schedule Description: Patient/caregiver will demonstrate ability to obtain, store, identify and administer ordered medications, keep accurate medication list in home, and adhere to medication schedule by 12/20/23. Medication Education No Improved management of mental health condition(s) Description: Patient/caregiver will teach back mental health symptom identification and management techniques by 12/20/23. Mental Health No Patient/caregiver will be able to identify and report symptoms of sepsis Description: Patient/caregiver will be able to identify signs/symptoms of sepsis infection and will verbalize actions to take if suspected by 12/20/23. Sepsis No Patient to maintain parameters within physician-specified ranges throughout certification period Physician Specific Parameters No Manage Risk for falls Description: Patient/caregiver will verbalize knowledge of individualized fall prevention strategies by 12/20/23. Risk for Falls No Manage Pain Description: Patient/caregiver will verbalize knowledge and understanding of appropriate techniques to control pain, including pain medication and non-pharmacological techniques. Patient will verbalize or demonstrate an acceptable level of pain as evidenced by a pain score of <6/10 and improvement in ability to perform activities of daily living to be achieved by 12/20/23. Pain No Manage diabetic foot care Description: Patient/caregiver will demonstrate basic understanding of and compliance with diabetic self-care management as evidenced by verbalizing purpose of daily foot care and assessment by 12/20/23. Diabetic Foot Care No Manage Nutrition/Hydration Description: Patient/caregiver will verbalize/demonstrate knowledge of prescribed diet and/or healthy nutrition to be achieved by 12/20/23. Nutrition/Hydration No Patient/caregiver will teach back high risk medication side effect and precaution education Description: STG Patient/caregiver will verbalize understanding of high risk medication side effects and precautions to be achieved by 12/02/23. LTG Patient/caregiver will continue to verbalize understanding of high risk medication side effects and precautions throughout certification period. High Risk Medications No Improved management of diabetes Description: Improve diabetic management as evidenced by patient/caregiver able to teach back diabetic management strategies by 11/18/23. SN Diabetes No Improved management of cardiovascular disease Description: Improve patient/caregiver management of cardiac disease as evidenced by patient/caregiver ability to teach back cardiac management strategies by 11/18/23. SN Cardiovascular Condition Completed Yes Demonstrate understanding of education Description: Patient and/or caregiver will verbalize understanding of educational instruction provided throughout certification period. SN Learning Assessment No Effective management of ortho post-op condition Description: Increase understanding of management of condition following orthopedic procedure/surgery as evidenced by patient's/caregiver's ability to teachback precautions and s/s of complications by 11/18/23. SN Ortho Procedure/Surgery No Patient has declined referred services Declined Referral Completed Yes Interventions Intervention Associated Problem/Goal Status Variance Visit Notes Medication Education Description: Evaluate/instruct patient/caregiver on obtaining, storing, identifying and administering ordered medications as well as keeping accurate medication list in the home and adhereing to medication schedule Problem:Medication Education Goal:Patient/caregiver will demonstrate ability to obtain, store, identify and administer ordered medications, keep accurate medication list in home, and adhere to medication schedule Completed Patient and Caregiver instructed on importance of keeping accurate medication list in home, need to take up-to-date medication list to all medical provider appointments, adhering to medication schedule, proper storage of medications and medication, route, dose, frequency, purpose, and side effects of current med list medications. Patient/caregiver will teach back mental health symptom identification and management strategies Problem:Mental Health Goal:Improved management of mental health condition(s) Completed Patient and Caregiver instructed on the following: signs and symptoms of increased anxiety and when to report to physician, importance of medication adherence, coping skills and techniques, use of relaxation techniques, use of diversional activities, seeking support from family/friends and crisis hotline use. Risk of Sepsis Description: Patient is at risk for sepsis. Monitor closely for s/s of sepsis. Problem:Sepsis Goal:Patient/caregiver will be able to identify and report symptoms of sepsis Completed SPO2 Description: Notify Dr. Scott if pulse ox is <92% at rest. Problem:Physician Specific Parameters Goal:Patient to maintain parameters within physician-specified ranges throughout certification period Completed Instruct on individual fall risk factors and strategies to prevent falls and injuries caused by falls. Problem:Risk for Falls Goal:Manage Risk for falls Completed SN: Patient and Caregiver instructed on Managing Impaired Functional Mobility: Use assistive device(s): single point cane Managing Pain: Recommended pain medication schedule and management of side effects to minimize fall risk Instruct on pain and instruct on strategies to control pain Problem:Pain Goal:Manage Pain Completed patient and caregiver instructed on techniques to control pain including Non-Pharmacological measures; rest, positioning/elevatio n, mobility/therapeutic exercise and distraction. Monitor lower extremities for skin lesions and educate on proper foot care Problem:Diabetic Foot Care Goal:Manage diabetic foot care Completed patient and caregiver instructed on diabetic foot care including daily skin inspection, wearing proper footwear/avoiding going barefoot, wash/dry feet thoroughly, applying moisturizer, avoiding between toes and toenail care. Define patient s appetite/hydration status and implement strategies to improve compliance with prescribed diet and/or healthy nutrition. Problem:Nutrition/Hydr ation Goal:Manage Nutrition/Hydration Completed reinforced patient and caregiver on implementing strategies to comply with prescribed diet, healthy nutrition and adequate hydration Hypoglycemic (including insulin)- educated on high risk medication Problem:High Risk Medications Goal:Patient/caregiver will teach back high risk medication side effect and precaution education Completed patient and caregiver educated on taking medication(s) as prescribed by provider. Do not stop medication or skip/alter doses without speaking with your provider. Discuss medication effectiveness or side effect concerns with your provider and home care team. Check blood sugars and keep log as ordered by provider. Monitor for side effects of hypoglycemia such as increased weakness or shaking, moist skin, sweating, fast heartbeat, dizziness, sudden hunger, confusion, pale skin, numbness in mouth or tongue, irritability, nervousness, unsteadiness, nightmares, bad dreams, and restless sleep. Checking your blood sugar routinely and eating a consistent diabetic diet can help regulate blood sugars and reduce side effects. Instruct on diabetes disease process and management of chronic condition Description: Patient has needs for education of diabetes. Problem:SN Diabetes Goal:Improved management of diabetes Completed patient and caregiver assessed and reinforced on diabetes disease process, how food and insulin affect blood sugar, diet education, how to carb count, recogonizing s/s of hypoglycemia and hyperglycemia and managing sick days as found in the diabetes self-care booklets. Ensure patient/caregiver has Living with Diabetes Booklet in home Description: SN to provide and refer to diabetes education booklet every visit. Problem:SN Diabetes Goal:Improved management of diabetes Completed Patient has diabetes self-care booklet. Instruct on cardiovascular disease process and management of condition Description: Patient has following cardiac diagnosis(es): Hypertension. Problem:SN Cardiovascular Condition Goal:Improved management of cardiovascular disease Completed patient and caregiver instructed on cardiac disease process, self monitoring & symptom reporting and Cardiac Diet. Instruct and educate on knowledge deficits Problem:SN Learning Assessment Goal:Demonstrate understanding of education Completed patient and caregiver verbalize and/or demonstrate understanding of nursing education completed today. Education methods include: verbal cues and written instructions. Further education required to improve knowledge and compliance with cardiac disease management, fall prevention/home safety strategies and nutrition. Instruct on ortho post-op care and monitoring/prevention of complications Description: Patient is status-post laminectomy Problem:SN Ortho Procedure/Surgery Goal:Effective management of ortho post-op condition Completed patient and caregiver instructed on the following precautions/restrict ions:s/s of infection, s/s of DVT and spinal precautions [facility] Visit Details Visit Type -OT DISC DC W VIS IT Discipline -Occupational Therapy Problems Problem Description Start Date Status Goals Interve ntions Physician Specific Parameters Disciplines: Skilled Services 10/22/2023 Active 1 goal linked to scheduled/documen kurt intervention 1 goal intervention scheduled/document ed in this visit Pain Disciplines: Skilled Services 10/22/2023 Active 1 goal linked to scheduled/documen kurt intervention 1 goal intervention scheduled/document ed in this visit Discharge Disciplines: Skilled Services 10/22/2023 Active 1 goal linked to scheduled/documen kurt intervention 1 goal intervention scheduled/document ed in this visit OT Learning Assessment Disciplines: OT 10/27/2023 Resolved on 11/13/2023 1 goal linked to scheduled/documen kurt intervention 1 goal intervention scheduled/document ed in this visit OT Upper Body Strength and/or ROM Disciplines: OT 10/27/2023 Resolved on 11/13/2023 1 goal linked to scheduled/documen kurt intervention 1 goal intervention scheduled/document ed in this visit OT Functional Transfers Disciplines: OT 10/27/2023 Resolved on 11/13/2023 1 goal linked to scheduled/documen kurt intervention 1 goal intervention scheduled/document ed in this visit OT Balance Disciplines: OT 10/27/2023 Resolved on 11/13/2023 1 goal linked to scheduled/documen kurt intervention 1 goal intervention scheduled/document ed in this visit Goals Goal Associated Problem Outcome Goal Met? Visit Notes Patient to maintain parameters within physician-specified ranges throughout certification period Physician Specific Parameters No Manage Pain Description: Patient/caregiver will verbalize knowledge and understanding of appropriate techniques to control pain, including pain medication and non-pharmacological techniques. Patient will verbalize or demonstrate an acceptable level of pain as evidenced by a pain score of <6/10 and improvement in ability to perform activities of daily living to be achieved by 12/20/23. Pain No Manage discharge planning Description: Patient/caregiver will verbalize understanding of ongoing discharge plan provided related to disease management, arrangements for outpatient and/or community services, obtaining medications, supplies, and DME, as needed throughout certification period. Discharge No Demonstrate understanding of education Description: Patient and/or caregiver will understand educational instruction to be achieved by 11/18/23. OT Learning Assessment Completed Yes goal met Improved Strength and/or ROM Description: patient will verbalize/demonstrate independence with home exercise program, to improve functional performance, to be achieved by 11/18/23. OT Upper Body Strength and/or ROM Completed Yes goa met Improved Functional Transfers Description: patient will demonstrate safe transfers to/from toilet and shower/tub with independent assistance and minimal verbal cues with use of DME to be achieved by 11/18/23. OT Functional Transfers Completed Yes goal met Improved Balance Description: Patient will demonstrate improved standing balance to meet functional goals as evidenced by fair + balance with unlateral support with tolerance x 3 min during functilan adl/ue task to be achieved by 11/18/23. OT Balance Completed Yes goal met Interventions Intervention Associated Problem/Goal Status Variance Visit Notes SPO2 Description: Notify Dr. Scott if pulse ox is <92% at rest. Problem:Physician Specific Parameters Goal:Patient to maintain parameters within physician-specified ranges throughout certification period Completed Instruct on pain and instruct on strategies to control pain Problem:Pain Goal:Manage Pain Completed patient instructed on techniques to control pain including Pharmacological measures and Non-Pharmacological measures; rest and positioning/elevation. Instruct on final discharge plan and deliver discharge instructions Problem:Discharge Goal:Manage discharge planning Completed Delivered Discharge plan: Discharge plan discussed with patient for plan for transition to: live independently at home without ongoing services Instruct and educate on knowledge deficits Problem:OT Learning Assessment Goal:Demonstrate understanding of education Completed Education methods include: verbal cues. Patient/Caregiver require further education to improve knowledge and compliance with fall prevention strategies, orthopedic condition management, pain management, post surgical precautions, home safety, functional adl/iadl activity, functional transfers and home exercise program. Therapeutic Exercises Problem:OT Upper Body Strength and/or ROM Goal:Improved Strength and/or ROM Completed Instructed patient/caregiver on therapeutic exercise including: upper body exercises: shoulder flexion/extension, abduction/adduction, horizontal abduction/adduction, internal/external rotation, overhead and chest press, tricep press, elbow and wrist flexion/extension and forearm supination/pronation .Provided has been provided with written insruction and is completing 10-15 reps x all exercises. Instructed patient/caregiver for HEP to be performed 1-2 sets(s) of 10-15 reps, daily. HEP program reviewed. pt to advance with 1 pound weight with all exercises Transfer Training Problem:OT Functional Transfers Goal:Improved Functional Transfers Completed Instruct patient on safe transfers and proper techniques to perform to and from toilet and shower/tub with indep pt using showe chair and grab bars Balance Training Problem:OT Balance Goal:Improved Balance Completed Developed, implemented, and instructed patient on standing sink level for grooming and for kitchen tasks x 4 min meeing rest breaks due to back pain occasional unilateral support [facility] Visit Details Visit Type -HOT OILER ROUTINE Discipline -Physical Therapy Problems Problem Description Start Date Status Goals Interve ntions Medication Education Disciplines: Skilled Services 10/22/2023 Active 1 goal linked to scheduled/documen kurt intervention 1 goal intervention scheduled/document ed in this visit Sepsis Disciplines: Skilled Services 10/22/2023 Active 1 goal linked to scheduled/documen kurt intervention 1 goal intervention scheduled/document ed in this visit Physician Specific Parameters Disciplines: Skilled Services 10/22/2023 Active 1 goal linked to scheduled/documen kurt intervention 1 goal intervention scheduled/document ed in this visit Risk for Falls Disciplines: Skilled Services 10/22/2023 Active 1 goal linked to scheduled/documen kurt intervention 1 goal intervention scheduled/document ed in this visit Pain Disciplines: Skilled Services 10/22/2023 Active 1 goal linked to scheduled/documen kurt intervention 1 goal intervention scheduled/document ed in this visit Diabetic Foot Care Disciplines: Skilled Services 10/22/2023 Active 1 goal linked to scheduled/documen kurt intervention 1 goal intervention scheduled/document ed in this visit Discharge Disciplines: Skilled Services 10/22/2023 Active 1 goal linked to scheduled/documen kurt intervention 1 goal intervention scheduled/document ed in this visit PT Impaired muscle performance and/or ROM Disciplines: PT 10/28/2023 Active 1 goal linked to scheduled/documen kurt intervention 1 goal intervention scheduled/document ed in this visit PT Impaired mobility Disciplines: PT 10/28/2023 Active 1 goal linked to scheduled/documen kurt intervention 1 goal intervention scheduled/document ed in this visit PT Impaired gait Disciplines: PT 10/28/2023 Active 1 goal linked to scheduled/documen kurt intervention 1 goal intervention scheduled/document ed in this visit PT Impaired balance Disciplines: PT 10/28/2023 Active 1 goal linked to scheduled/documen kurt intervention 1 goal intervention scheduled/document ed in this visit PT Orthopedic Condition Disciplines: PT 10/28/2023 Active 1 goal linked to scheduled/documen kurt intervention 1 goal intervention scheduled/document ed in this visit PT Learning Assessment Disciplines: PT 10/28/2023 Active 1 goal linked to scheduled/documen kurt intervention 1 goal intervention scheduled/document ed in this visit PT Cardiovascular Disease Disciplines: PT 10/28/2023 Active 1 goal linked to scheduled/documen kurt intervention 1 goal intervention scheduled/document ed in this visit Goals Goal Associated Problem Outcome Goal Met? Visit Notes Patient/caregiver will demonstrate ability to obtain, store, identify and administer ordered medications, keep accurate medication list in home, and adhere to medication schedule Description: Patient/caregiver will demonstrate ability to obtain, store, identify and administer ordered medications, keep accurate medication list in home, and adhere to medication schedule by 12/20/23. Medication Education No Patient/caregiver will be able to identify and report symptoms of sepsis Description: Patient/caregiver will be able to identify signs/symptoms of sepsis infection and will verbalize actions to take if suspected by 12/20/23. Sepsis No Patient to maintain parameters within physician-specified ranges throughout certification period Physician Specific Parameters No Manage Risk for falls Description: Patient/caregiver will verbalize knowledge of individualized fall prevention strategies by 12/20/23. Risk for Falls No Manage Pain Description: Patient/caregiver will verbalize knowledge and understanding of appropriate techniques to control pain, including pain medication and non-pharmacological techniques. Patient will verbalize or demonstrate an acceptable level of pain as evidenced by a pain score of <6/10 and improvement in ability to perform activities of daily living to be achieved by 12/20/23. Pain No Manage diabetic foot care Description: Patient/caregiver will demonstrate basic understanding of and compliance with diabetic self-care management as evidenced by verbalizing purpose of daily foot care and assessment by 12/20/23. Diabetic Foot Care No Manage discharge planning Description: Patient/caregiver will verbalize understanding of ongoing discharge plan provided related to disease management, arrangements for outpatient and/or community services, obtaining medications, supplies, and DME, as needed throughout certification period. Discharge No Improved Muscle Performance and/or ROM Description: LTG: Patient will demonstrate improved muscle performance to meet functional goals as evidenced by ability to increase from 10 to 15 reps of each ex with HEP in order to improve strength to allow for negotiating home entry steps. To be achieved by 11/18/23. LTG: Patient and/or caregiver will verbalize/demonstrate independence with home exercise program, to improve functional mobility, to be achieved by 11/18/23. PT Impaired muscle performance and/or ROM No Improved Transfers Description: STG: Patient will demonstrate safe transfers to/from bed and chair independently, to be achieved by 11/11/23. PT Impaired mobility No Improved Gait Description: LTG: Patient will demonstrate improved gait ability as evidenced by ambulation 200 feet with single point cane independently, to return to safe community ambulation, in order to safely walk into medical appointments, to be achieved by 11/18/23. PT Impaired gait No Improved Balance Description: LTG: Patient will demonstrate improved standing balance to meet functional goals as evidenced by TUG score of 25 sec to be achieved by 11/18/23. PT Impaired balance No Manage Orthopedic Condition Description: Improve patient and/or caregiver understanding of post surgical and/or non-surgical orthopedic intervention management as evidenced by patient and/or caregiver able to verbalize, demonstrate, and teach back instruction, to be achieved by 11/18/23. PT Orthopedic Condition No Demonstrate understanding of education Description: Patient and/or caregiver will understand educational instruction to be achieved by 11/18/23. PT Learning Assessment No Manage Primary Cardiovascular Disease Description: Improve patient and/or caregiver understanding of primary cardiovascular disease management as evidenced by patient and/or caregiver able to verbalize, demonstrate, and teach back instruction, to be achieved by 11/18/23. PT Cardiovascular Disease No Interventions Intervention Associated Problem/Goal Status Variance Visit Notes Medication Education Description: Evaluate/instruct patient/caregiver on obtaining, storing, identifying and administering ordered medications as well as keeping accurate medication list in the home and adhereing to medication schedule Problem:Medication Education Goal:Patient/caregiver will demonstrate ability to obtain, store, identify and administer ordered medications, keep accurate medication list in home, and adhere to medication schedule Completed Patient instructed on adhering to medication schedule. Risk of Sepsis Description: Patient is at risk for sepsis. Monitor closely for s/s of sepsis. Problem:Sepsis Goal:Patient/caregiver will be able to identify and report symptoms of sepsis Completed SPO2 Description: Notify Dr. Scott if pulse ox is <92% at rest. Problem:Physician Specific Parameters Goal:Patient to maintain parameters within physician-specified ranges throughout certification period Completed Instruct on individual fall risk factors and strategies to prevent falls and injuries caused by falls. Problem:Risk for Falls Goal:Manage Risk for falls Completed pt: Patient instructed on Managing Impaired Functional Mobility: Use assistive device(s): quad cane Instruct on pain and instruct on strategies to control pain Problem:Pain Goal:Manage Pain Completed patient instructed on techniques to control pain including Non-Pharmacological measures; rest, positioning/elevatio n, mobility/therapeutic exercise and use of DME/assistive devices. Monitor lower extremities for skin lesions and educate on proper foot care Problem:Diabetic Foot Care Goal:Manage diabetic foot care Completed patient instructed on diabetic foot care including wearing proper footwear/avoiding going barefoot. Instruct on ongoing discharge plan Problem:Discharge Goal:Manage discharge planning Completed Ongoing Discharge plan: Discharge plan discussed with patient including frequency and duration for home PT and plan for transition to: live independently at home without ongoing services. Physical Therapy Therapeutic Exercises Problem:PT Impaired muscle performance and/or ROM Goal:Improved Muscle Performance and/or ROM Completed patient instructed on strengthening and range of motion exercises including standing: ham curls, calf riases 2 x 5 each seated: heel and toe raises, LAQ x15 each with visual, written and verbal cues for slow pace for max benefit. patient instructed to perform home exercise program twice a day which included all the above as tolerated, stop if SOB/chest pain and report to provider. Physical Therapy Transfer Training Problem:PT Impaired mobility Goal:Improved Transfers Completed Transfer training and instruction to patient on safe transfers to and from chair with supervision and stand by assist and visual and verbal cues for hand placmeent, ant wt shifting, ensuring stable once standing before beginning to walk Physical Therapy Gait Training Problem:PT Impaired gait Goal:Improved Gait Completed Gait training and instruction to patient on safe ambulation with quad cane and railing along sanders for 100 feet x 2 with supervision, with visual and verbal cues for corrections of gait deviations including WBOS, slow velocity Physical Therapy Balance Training Problem:PT Impaired balance Goal:Improved Balance Completed Developed, implemented, and instructed patient on standing balance exercises including side stepping at railing 12/12 stepping SLS 2 x 10secs, 2 hand support on railing. Instruct on orthopedic bracing Description: Orthopedic bracing to include confirmation of patient wearing back brace vs no back brace. Problem:PT Orthopedic Condition Goal:Manage Orthopedic Condition Completed patient instructed on orthopedic bracing including wearing schedule. Instruct and educate on knowledge deficits Problem:PT Learning Assessment Goal:Demonstrate understanding of education Completed patient verbalize and/or demonstrate understanding of physical therapy education including orthopedic condition management, pain management, fall prevention strategies, functional activity and home exercise program. Education methods include: verbal cues, tactile cues, written instructions and visual cues. Further education required to improve knowledge and compliance with orthopedic condition management. Instruct on signs, symptoms, and management of primary cardiovascular disease Problem:PT Cardiovascular Disease Goal:Manage Primary Cardiovascular Disease Completed Instructed patient on energy conservation and exercise and activity guidelines. [facility] Visit Details Visit Type -SN DISC DC W VIS IT Discipline -Halfway Problems Problem Description Start Date Status Goals Interve ntions Medication Education Disciplines: Skilled Services 10/22/2023 Active 1 goal linked to scheduled/document ed intervention 1 goal intervention scheduled/document ed in this visit Mental Health Disciplines: Skilled Services 10/22/2023 Active 1 goal linked to scheduled/document ed intervention 1 goal intervention scheduled/document ed in this visit Sepsis Disciplines: Skilled Services 10/22/2023 Active 1 goal linked to scheduled/document ed intervention 1 goal intervention scheduled/document ed in this visit Physician Specific Parameters Disciplines: Skilled Services 10/22/2023 Active 1 goal linked to scheduled/document ed intervention 1 goal intervention scheduled/document ed in this visit Risk for Falls Disciplines: Skilled Services 10/22/2023 Active 1 goal linked to scheduled/document ed intervention 1 goal intervention scheduled/document ed in this visit Pain Disciplines: Skilled Services 10/22/2023 Active 1 goal linked to scheduled/document ed intervention 1 goal intervention scheduled/document ed in this visit Diabetic Foot Care Disciplines: Skilled Services 10/22/2023 Active 1 goal linked to scheduled/document ed intervention 1 goal intervention scheduled/document ed in this visit Nutrition/Hydr ation Disciplines: Skilled Services 10/22/2023 Active 1 goal linked to scheduled/document ed intervention 1 goal intervention scheduled/document ed in this visit High Risk Medications Disciplines: Skilled Services 10/22/2023 Active 1 goal linked to scheduled/document ed intervention 1 goal intervention scheduled/document ed in this visit Discharge Disciplines: Skilled Services 10/22/2023 Active 1 goal linked to scheduled/document ed intervention 2 goal interventions scheduled/document ed in this visit SN Diabetes Disciplines: SN 10/22/2023 Resolved on 11/16/2023 1 goal linked to scheduled/document ed intervention 2 goal interventions scheduled/document ed in this visit SN Learning Assessment Disciplines: SN 10/22/2023 Resolved on 11/16/2023 1 goal linked to scheduled/document ed intervention 1 goal intervention scheduled/document ed in this visit SN Ortho Procedure/Surg jadiel Disciplines: SN 10/22/2023 Resolved on 11/16/2023 1 goal linked to scheduled/document ed intervention 1 goal intervention scheduled/document ed in this visit Goals Goal Associated Problem Outcome Goal Met? Visit Notes Patient/caregiver will demonstrate ability to obtain, store, identify and administer ordered medications, keep accurate medication list in home, and adhere to medication schedule Description: Patient/caregiver will demonstrate ability to obtain, store, identify and administer ordered medications, keep accurate medication list in home, and adhere to medication schedule by 12/20/23. Medication Education No Improved management of mental health condition(s) Description: Patient/caregiver will teach back mental health symptom identification and management techniques by 12/20/23. Mental Health No Patient/caregiver will be able to identify and report symptoms of sepsis Description: Patient/caregiver will be able to identify signs/symptoms of sepsis infection and will verbalize actions to take if suspected by 12/20/23. Sepsis No Patient to maintain parameters within physician-specified ranges throughout certification period Physician Specific Parameters No Manage Risk for falls Description: Patient/caregiver will verbalize knowledge of individualized fall prevention strategies by 12/20/23. Risk for Falls No Manage Pain Description: Patient/caregiver will verbalize knowledge and understanding of appropriate techniques to control pain, including pain medication and non-pharmacological techniques. Patient will verbalize or demonstrate an acceptable level of pain as evidenced by a pain score of <6/10 and improvement in ability to perform activities of daily living to be achieved by 12/20/23. Pain No Manage diabetic foot care Description: Patient/caregiver will demonstrate basic understanding of and compliance with diabetic self-care management as evidenced by verbalizing purpose of daily foot care and assessment by 12/20/23. Diabetic Foot Care No Manage Nutrition/Hydration Description: Patient/caregiver will verbalize/demonstrate knowledge of prescribed diet and/or healthy nutrition to be achieved by 12/20/23. Nutrition/Hydration No Patient/caregiver will teach back high risk medication side effect and precaution education Description: STG Patient/caregiver will verbalize understanding of high risk medication side effects and precautions to be achieved by 12/02/23. LTG Patient/caregiver will continue to verbalize understanding of high risk medication side effects and precautions throughout certification period. High Risk Medications No Manage discharge planning Description: Patient/caregiver will verbalize understanding of ongoing discharge plan provided related to disease management, arrangements for outpatient and/or community services, obtaining medications, supplies, and DME, as needed throughout certification period. Discharge No Improved management of diabetes Description: Improve diabetic management as evidenced by patient/caregiver able to teach back diabetic management strategies by 11/18/23. SN Diabetes Completed Yes Demonstrate understanding of education Description: Patient and/or caregiver will verbalize understanding of educational instruction provided throughout certification period. SN Learning Assessment Completed Yes Effective management of ortho post-op condition Description: Increase understanding of management of condition following orthopedic procedure/surgery as evidenced by patient's/caregiver's ability to teachback precautions and s/s of complications by 11/18/23. SN Ortho Procedure/Surgery Completed Yes Interventions Intervention Associated Problem/Goal Status Variance Visit Notes Medication Education Description: Evaluate/instruct patient/caregiver on obtaining, storing, identifying and administering ordered medications as well as keeping accurate medication list in the home and adhereing to medication schedule Problem:Medication Education Goal:Patient/caregive r will demonstrate ability to obtain, store, identify and administer ordered medications, keep accurate medication list in home, and adhere to medication schedule Completed Patient instructed on importance of keeping accurate medication list in home, need to take up-to-date medication list to all medical provider appointments, adhering to medication schedule, proper storage of medications and medication, route, dose, frequency, purpose, and side effects of current med list medications. Patient/caregiver will teach back mental health symptom identification and management strategies Problem:Mental Health Goal:Improved management of mental health condition(s) Completed Patient instructed on the following: signs and symptoms of increased anxiety and when to report to physician, importance of medication adherence, coping skills and techniques, use of relaxation techniques, use of diversional activities, seeking support from family/friends and crisis hotline use. Risk of Sepsis Description: Patient is at risk for sepsis. Monitor closely for s/s of sepsis. Problem:Sepsis Goal:Patient/caregive r will be able to identify and report symptoms of sepsis Completed SPO2 Description: Notify Dr. Scott if pulse ox is <92% at rest. Problem:Physician Specific Parameters Goal:Patient to maintain parameters within physician-specified ranges throughout certification period Completed Instruct on individual fall risk factors and strategies to prevent falls and injuries caused by falls. Problem:Risk for Falls Goal:Manage Risk for falls Completed SN: Patient instructed on Managing Impaired Functional Mobility: Caregiver to provide assist with: ADL/IADLs Managing Pain: Recommended pain medication schedule and management of side effects to minimize fall risk Instruct on pain and instruct on strategies to control pain Problem:Pain Goal:Manage Pain Completed patient and caregiver instructed on techniques to control pain including Non-Pharmacological measures; rest, positioning/elevation , mobility/therapeutic exercise and distraction. Monitor lower extremities for skin lesions and educate on proper foot care Problem:Diabetic Foot Care Goal:Manage diabetic foot care Completed patient instructed on diabetic foot care including daily skin inspection, wearing proper footwear/avoiding going barefoot, wash/dry feet thoroughly, applying moisturizer, avoiding between toes and toenail care. Define patient s appetite/hydration status and implement strategies to improve compliance with prescribed diet and/or healthy nutrition. Problem:Nutrition/Hyd ration Goal:Manage Nutrition/Hydration Completed reinforced patient on implementing strategies to comply with prescribed diet, healthy nutrition and adequate hydration Hypoglycemic (including insulin)- educated on high risk medication Problem:High Risk Medications Goal:Patient/caregive r will teach back high risk medication side effect and precaution education Completed patient educated on taking medication(s) as prescribed by provider. Do not stop medication or skip/alter doses without speaking with your provider. Discuss medication effectiveness or side effect concerns with your provider and home care team. Check blood sugars and keep log as ordered by provider. Monitor for side effects of hypoglycemia such as increased weakness or shaking, moist skin, sweating, fast heartbeat, dizziness, sudden hunger, confusion, pale skin, numbness in mouth or tongue, irritability, nervousness, unsteadiness, nightmares, bad dreams, and restless sleep. Checking your blood sugar routinely and eating a consistent diabetic diet can help regulate blood sugars and reduce side effects. Instruct on ongoing discharge plan Problem:Discharge Goal:Manage discharge planning Completed Ongoing Discharge plan: Discharge plan discussed with patient including , SN reviewed medications, safety/fall prevention measures, s/s HTN, s/s sepsis, reviewed no added salt diet, balanced CHO diet, diabetic management, how to treat high or low blood sugars. He verbalized understanding Instruct on importance of follow-up appts and continued monitoring with medical provider &/or chronic care clinic Problem:Discharge Goal:Manage discharge planning Completed Education provided on importance of compliance with follow-up appointment(s). Recommendations: patient/caregiver to follow up with scheduling appointment(s) for post-acute/primary care provider/chronic care clinic Instruct on diabetes disease process and management of chronic condition Description: Patient has needs for education of diabetes. Problem:SN Diabetes Goal:Improved management of diabetes Completed patient assessed and reinforced on diabetes disease process, diet education, how to carb count, recogonizing s/s of hypoglycemia and hyperglycemia and managing sick days as found in the diabetes self-care booklets. Ensure patient/caregiver has Living with Diabetes Booklet in home Description: SN to provide and refer to diabetes education booklet every visit. Problem:SN Diabetes Goal:Improved management of diabetes Completed Patient has diabetes self-care booklet. Instruct and educate on knowledge deficits Problem:SN Learning Assessment Goal:Demonstrate understanding of education Completed patient verbalize and/or demonstrate understanding of nursing education completed today. Education methods include: verbal cues and written instructions. Further education required to improve knowledge and compliance with cardiac disease management and fall prevention/home safety strategies. Instruct on ortho post-op care and monitoring/prevention of complications Description: Patient is status-post laminectomy Problem:SN Ortho Procedure/Surgery Goal:Effective management of ortho post-op condition Completed patient instructed on the following precautions/restricti ons:s/s of infection, s/s of DVT, use of assistive device:cane and spinal precautions documented in this encounter [facility] Plan of care note* Visit Details Visit Type -PT AGENCY DC W V ISIT Discipline -Physical Therapy Problems Problem Description Start Date Status Goals Interve ntions Medication Education Disciplines: Skilled Services 10/22/2023 Resolved on 11/20/2023 1 goal linked to scheduled/documen kurt intervention 1 goal intervention scheduled/documen kurt in this visit Mental Health Disciplines: Skilled Services 10/22/2023 Resolved on 11/20/2023 1 goal linked to scheduled/documen kurt intervention Sepsis Disciplines: Skilled Services 10/22/2023 Resolved on 11/20/2023 1 goal linked to scheduled/documen kurt intervention 1 goal intervention scheduled/documen kurt in this visit Physician Specific Parameters Disciplines: Skilled Services 10/22/2023 Resolved on 11/20/2023 1 goal linked to scheduled/documen kurt intervention 1 goal intervention scheduled/documen kurt in this visit Risk for Falls Disciplines: Skilled Services 10/22/2023 Resolved on 11/20/2023 1 goal linked to scheduled/documen kurt intervention 1 goal intervention scheduled/documen kurt in this visit Pain Disciplines: Skilled Services 10/22/2023 Resolved on 11/20/2023 1 goal linked to scheduled/documen kurt intervention 1 goal intervention scheduled/documen kurt in this visit Diabetic Foot Care Disciplines: Skilled Services 10/22/2023 Resolved on 11/20/2023 1 goal linked to scheduled/documen kurt intervention Nutrition/Hydration Disciplines: Skilled Services 10/22/2023 Resolved on 11/20/2023 1 goal linked to scheduled/documen kurt intervention 1 goal intervention scheduled/documen kurt in this visit High Risk Medications Disciplines: Skilled Services 10/22/2023 Resolved on 11/20/2023 1 goal linked to scheduled/documen kurt intervention Discharge Disciplines: Skilled Services 10/22/2023 Resolved on 11/20/2023 1 goal linked to scheduled/documen kurt intervention 2 goal interventions scheduled/documen kurt in this visit Advance Directives Disciplines: Skilled Services 10/22/2023 Resolved on 11/20/2023 1 goal linked to scheduled/documen kurt intervention PT Impaired Aerobic Capacity Disciplines: PT 10/28/2023 Resolved on 11/20/2023 1 goal linked to scheduled/documen kurt intervention PT Impaired muscle performance and/or ROM Disciplines: PT 10/28/2023 Resolved on 11/20/2023 1 goal linked to scheduled/documen kurt intervention PT Impaired mobility Disciplines: PT 10/28/2023 Resolved on 11/20/2023 2 goals linked to scheduled/documen kurt interventions 1 goal intervention scheduled/documen kurt in this visit PT Impaired gait Disciplines: PT 10/28/2023 Resolved on 11/20/2023 1 goal linked to scheduled/documen kurt intervention 1 goal intervention scheduled/documen kurt in this visit PT Impaired balance Disciplines: PT 10/28/2023 Resolved on 11/20/2023 1 goal linked to scheduled/documen kurt intervention PT Orthopedic Condition Disciplines: PT 10/28/2023 Resolved on 11/20/2023 1 goal linked to scheduled/documen kurt intervention PT Learning Assessment Disciplines: PT 10/28/2023 Resolved on 11/20/2023 1 goal linked to scheduled/documen kurt intervention 1 goal intervention scheduled/documen kurt in this visit PT Cardiovascular Disease Disciplines: PT 10/28/2023 Resolved on 11/20/2023 1 goal linked to scheduled/documen kurt intervention Goals Goal Associated Problem Outcome Goal Met? Visit Notes Patient/caregiver will demonstrate ability to obtain, store, identify and administer ordered medications, keep accurate medication list in home, and adhere to medication schedule Description: Patient/caregiver will demonstrate ability to obtain, store, identify and administer ordered medications, keep accurate medication list in home, and adhere to medication schedule by 12/20/23. Medication Education Completed Yes Goal met Improved management of mental health condition(s) Description: Patient/caregiver will teach back mental health symptom identification and management techniques by 12/20/23. Mental Health Completed Yes Goal met Patient/caregiver will be able to identify and report symptoms of sepsis Description: Patient/caregiver will be able to identify signs/symptoms of sepsis infection and will verbalize actions to take if suspected by 12/20/23. Sepsis Completed Yes Goal met Patient to maintain parameters within physician-specified ranges throughout certification period Physician Specific Parameters Completed Yes Goal met Manage Risk for falls Description: Patient/caregiver will verbalize knowledge of individualized fall prevention strategies by 12/20/23. Risk for Falls Completed Yes Goal met Manage Pain Description: Patient/caregiver will verbalize knowledge and understanding of appropriate techniques to control pain, including pain medication and non-pharmacological techniques. Patient will verbalize or demonstrate an acceptable level of pain as evidenced by a pain score of <6/10 and improvement in ability to perform activities of daily living to be achieved by 12/20/23. Pain Completed Yes Manage diabetic foot care Description: Patient/caregiver will demonstrate basic understanding of and compliance with diabetic self-care management as evidenced by verbalizing purpose of daily foot care and assessment by 12/20/23. Diabetic Foot Care Completed Yes Goal met Manage Nutrition/Hydration Description: Patient/caregiver will verbalize/demonstrate knowledge of prescribed diet and/or healthy nutrition to be achieved by 12/20/23. Nutrition/Hydration Completed Yes Goal met Patient/caregiver will teach back high risk medication side effect and precaution education Description: STG Patient/caregiver will verbalize understanding of high risk medication side effects and precautions to be achieved by 12/02/23. LTG Patient/caregiver will continue to verbalize understanding of high risk medication side effects and precautions throughout certification period. High Risk Medications Completed Yes Goal met Manage discharge planning Description: Patient/caregiver will verbalize understanding of ongoing discharge plan provided related to disease management, arrangements for outpatient and/or community services, obtaining medications, supplies, and DME, as needed throughout certification period. Discharge Completed Yes Goal met Patient/caregiver will make healthcare providers aware of and any changes to Advance Directives throughout certification period Advance Directives Completed Yes Goal met Improved Aerobic Capacity Description: LTG: Patient will demonstrate improved aerobic capacity to meet functional goals as evidenced by Rate of Percieved Exertion (RPE) of 2/10 [address] negotiation, to be achieved by 11/18/23. PT Impaired Aerobic Capacity Completed Yes Improved Muscle Performance and/or ROM Description: LTG: Patient will demonstrate improved muscle performance to meet functional goals as evidenced by ability to increase from 10 to 15 reps of each ex with HEP in order to improve strength to allow for negotiating home entry steps. To be achieved by 11/18/23. LTG: Patient and/or caregiver will verbalize/demonstrate independence with home exercise program, to improve functional mobility, to be achieved by 11/18/23. PT Impaired muscle performance and/or ROM Completed Yes Goal met Improved Transfers Description: STG: Patient will demonstrate safe transfers to/from bed and chair independently, to be achieved by 11/11/23. PT Impaired mobility Completed Yes Goal met Improved Bed Mobility Description: STG: Patient will demonstrate improved bed mobility independently to be achieved by 11/11/23. PT Impaired mobility Completed Yes Goal met Improved Gait Description: LTG: Patient will demonstrate improved gait ability as evidenced by ambulation 200 feet with single point cane independently, to return to safe community ambulation, in order to safely walk into medical appointments, to be achieved by 11/18/23. PT Impaired gait Completed Yes Improved Balance Description: LTG: Patient will demonstrate improved standing balance to meet functional goals as evidenced by TUG score of 25 sec to be achieved by 11/18/23. PT Impaired balance Completed Yes Manage Orthopedic Condition Description: Improve patient and/or caregiver understanding of post surgical and/or non-surgical orthopedic intervention management as evidenced by patient and/or caregiver able to verbalize, demonstrate, and teach back instruction, to be achieved by 11/18/23. PT Orthopedic Condition Completed Yes Goal met Demonstrate understanding of education Description: Patient and/or caregiver will understand educational instruction to be achieved by 11/18/23. PT Learning Assessment Completed Yes Goal met Manage Primary Cardiovascular Disease Description: Improve patient and/or caregiver understanding of primary cardiovascular disease management as evidenced by patient and/or caregiver able to verbalize, demonstrate, and teach back instruction, to be achieved by 11/18/23. PT Cardiovascular Disease Completed Yes Goal met Interventions Intervention Associated Problem/Goal Status Variance Visit Notes Medication Education Description: Evaluate/instruct patient/caregiver on obtaining, storing, identifying and administering ordered medications as well as keeping accurate medication list in the home and adhereing to medication schedule Problem:Medication Education Goal:Patient/caregive r will demonstrate ability to obtain, store, identify and administer ordered medications, keep accurate medication list in home, and adhere to medication schedule Completed Patient instructed on adhering to medication schedule. Risk of Sepsis Description: Patient is at risk for sepsis. Monitor closely for s/s of sepsis. Problem:Sepsis Goal:Patient/caregive r will be able to identify and report symptoms of sepsis Completed SPO2 Description: Notify Dr. Scott if pulse ox is <92% at rest. Problem:Physician Specific Parameters Goal:Patient to maintain parameters within physician-specified ranges throughout certification period Completed Instruct on individual fall risk factors and strategies to prevent falls and injuries caused by falls. Problem:Risk for Falls Goal:Manage Risk for falls Completed Interventions implemented and instructions provided this visit to reduce risk of falls:Assistive devices to be used: SPC. Instruct on pain and instruct on strategies to control pain Problem:Pain Goal:Manage Pain Completed patient instructed on techniques to control pain including Pharmacological measures and Non-Pharmacological measures; rest, positioning/elevation, mobility/therapeutic exercise, use of DME/assistive devices and use of thermal modalities, apply ice to affected area. Define patient s appetite/hydration status and implement strategies to improve compliance with prescribed diet and/or healthy nutrition. Problem:Nutrition/Hyd ration Goal:Manage Nutrition/Hydration Completed instructed patient on implementing strategies to comply with healthy nutrition Instruct on final discharge plan and deliver discharge instructions Problem:Discharge Goal:Manage discharge planning Completed Delivered Discharge plan: Discharge plan discussed with patient for plan for transition to: outpatient therapy Instruct on importance of follow-up appts and continued monitoring with medical provider &/or chronic care clinic Problem:Discharge Goal:Manage discharge planning Completed Education provided on importance of compliance with follow-up appointment(s). Physical Therapy Transfer Training Problem:PT Impaired mobility Goal:Improved Transfers Completed Transfer training and instruction to patient on safe transfers to and from chair Independently. Physical Therapy Gait Training Problem:PT Impaired gait Goal:Improved Gait Completed Gait training and instruction to patient on safe ambulation with SPC for 110 feet with supervision, with verbal cues for corrections of gait deviations including increase BL step length and for sequencing with SPC. Instruct and educate on knowledge deficits Problem:PT Learning Assessment Goal:Demonstrate understanding of education Completed patient verbalize and/or demonstrate understanding of physical therapy education including diabetic care management, orthopedic condition management, fall prevention strategies, functional activity and home exercise program. documented in this encounter [facility] for referral (narrative)* Diagnostic Procedure Only (Routine) - Authorized Specialty Diagnoses / Procedures Referred By Contac t Referred To Contact XR IMAGING Diagnoses Pain in hip Chronic left hip pain Procedures XR INJ ARTHROGRAM HIP LEFT INJECTION HIP ARTHROGRAPHY W/O ANESTHESIA Binh Lake, DO [address] [place] [address] Xr Imaging Referral ID Status Reason Start Date Expiration Date Visits Requested Visits Authorized [id number] Authorized Auto-Generat ed Referral 07/01/2022 07/31/2023 1 1 * MRI/CT (Routine) - Authorized Specialty Diagnoses / Procedures Referred By Contac t Referred To Contact MR IMAGING Diagnoses Pain in hip Chronic left hip pain Procedures MRI ARTHROGRAM HIP LEFT MRI ANY JT LOWER EXTREM W/CONTRAST MATERIAL Binh Lake DO [address] [place] [address] Mr Imaging Referral ID Status Reason Start Date Expiration Date Visits Requested Visits Authorized [id number] Authorized Auto-Generat ed Referral 07/01/2022 07/31/2023 1 1 * Diagnostic Procedure Only (Routine) - Pending Review Specialty Diagnoses / Procedures Referred By Contac t Referred To Contact XR IMAGING Diagnoses Lumbar back pain with radiculopathy affecting lower extremity Procedures XR LUMBAR LIMITED 2V AP/LAT RADEX SPINE LUMBOSACRAL 2/3 VIEWS Binh Lake DO [address] [place] [address] Xr Imaging Referral ID Status Reason Start Date Expiration Date Visits Requested Visits Authorized [id number] Pending Review Auto-Generat ed Referral 07/01/2022 07/31/2023 1 1 * Diagnostic Procedure Only (Routine) - Pending Review Specialty Diagnoses / Procedures Referred By Contac t Referred To Contact XR IMAGING Diagnoses Pain in hip Chronic left hip pain Procedures XR PELVIS 1V AP RADIOLOGIC EXAMINATION PELVIS 1/2 VIEWS Binh Lake DO [address] [place] [address] Xr Imaging Referral ID Status Reason Start Date Expiration Date Visits Requested Visits Authorized [id number] Pending Review Auto-Generat ed Referral 07/01/2022 07/31/2023 1 1 [facility] for referral (narrative)* Diagnostic Procedure Only (Routine) - Closed Specialty Diagnoses / Procedures Referred By Contac t Referred To Contact XR IMAGING Diagnoses Pain in hip Chronic left hip pain Procedures XR INJ ARTHROGRAM HIP LEFT INJECTION HIP ARTHROGRAPHY W/O ANESTHESIA Binh Lake DO [address] [place] [address] Xr Imaging Referral ID Status Reason Start Date Expiration Date V isits Requested Visits Authorized [id number] Closed Auto-Generate d Referral 07/01/2022 07/31/2023 1 1 [facility] for referral (narrative)* Outpatient Procedure (Routine) - Pending Review Specialty Diagnoses / Procedures Referred By Contac t Referred To Contact [facility] Diagnoses History of rectal cancer Procedures COLONOSCOPY SCREENING COLONOSCOPY FLX DX W/COLLJ SPEC WHEN PFYAIRD Artem Ahmadi MD 1 [facility] [address] [place] [address] [facility] [place] [address] [place] [address] Referral ID Status Reason Start Date Expiration Date Visits Requested Visits Authorized [id number] Pending Review Auto-Generat ed Referral 09/02/2022 09/03/2023 1 1 [facility] for referral (narrative)* Outpatient Procedure (Routine) - Authorized Specialty Diagnoses / Procedures Referred By Contac t Referred To Contact [facility] Diagnoses OTT (dyspnea on exertion) Procedures ECHO ECHO TTHRC R-T 2D W/WOM-MODE COMPL SPEC&COLR D Sukumar Toney MD [address] [place] [address] [facility] [place] [address] [place] [address] Referral ID Status Reason Start Date Expiration Date Visits Requested Visits Authorized [id number] Authorized Auto-Generat ed Referral 10/13/2022 10/13/2023 1 1 * Diagnostic Procedure Only (Routine) - Authorized Specialty Diagnoses / Procedures Referred By Contac t Referred To Contact [facility] Diagnoses Precordial pain OTT (dyspnea on exertion) Primary hypertension Procedures NM CARDIAC PERF STRESS/PHARM MYOCARDIAL SPECT MULTIPLE STUDIES Sukumar Toney MD [address] [place] [address] [facility] [address] [place] [address] Referral ID Status Reason Start Date Expiration Date Visits Requested Visits Authorized [id number] Authorized Auto-Generat ed Referral 10/13/2022 11/12/2023 1 1 [facility] for referral (narrative)* Outpatient Procedure (Routine) - Closed Specialty Diagnoses / Procedures Referred By Contac t Referred To Contact [facility] Diagnoses OTT (dyspnea on exertion) Procedures ECHO ECHO TTHRC R-T 2D W/WOM-MODE COMPL SPEC&COLR D Sukumar Toney MD [address] [place] [address] [facility] [place] [address] [place] [address] Referral ID Status Reason Start Date Expiration Date V isits Requested Visits Authorized [id number] Closed Auto-Generate d Referral 10/13/2022 10/13/2023 1 1 [facility] for referral (narrative)* Diagnostic Procedure Only (Routine) - Closed Specialty Diagnoses / Procedures Referred By Contac t Referred To Contact [facility] Diagnoses Precordial pain OTT (dyspnea on exertion) Primary hypertension Procedures NM CARDIAC PERF STRESS/PHARM MYOCARDIAL SPECT MULTIPLE STUDIES Sukumar Toney MD [address] [place] [address] [facility] [address] [place] [id number] Referral ID Status Reason Start Date Expiration Date V isits Requested Visits Authorized [id number] Closed Auto-Generate d Referral 10/13/2022 11/12/2023 1 1 [facility] for referral (narrative)* Outpatient Procedure (Routine) - Pending Review Specialty Diagnoses / Procedures Referred By Contac t Referred To Contact [facility] Diagnoses History of rectal cancer Procedures COLONOSCOPY SCREENING COLONOSCOPY FLX DX W/COLLJ SPEC WHEN PFRMArtem Clark MD 1 [facility] [address] [place] [address] [facility] [place] [address] [place] [id number] Referral ID Status Reason Start Date Expiration Date Visits Requested Visits Authorized [id number] Pending Review Auto-Generat ed Referral 02/19/2025 1 1 [facility] for referral (narrative)No [facility] for [facility] Reason for visit Narrative* Diagnostic Procedure Only (Routine) - Closed Specialty Diagnoses / Procedures Referred By Contac t Referred To Contact XR IMAGING Diagnoses Pain in hip Chronic left hip pain Procedures XR INJ ARTHROGRAM HIP LEFT INJECTION HIP ARTHROGRAPHY W/O ANESTHESIA Binh Lake, DO [address] [place] [address] Xr Imaging Referral ID Status Reason Start Date Expiration Date V isits Requested Visits Authorized [id number] Closed Auto-Generate d Referral 07/01/2022 07/31/2023 1 1 [facility] for visit Narrative* Outpatient Procedure (Routine) - Closed Specialty Diagnoses / Procedures Referred By Contac t Referred To Contact [facility] Diagnoses OTT (dyspnea on exertion) Procedures ECHO ECHO TTHRC R-T 2D W/WOM-MODE COMPL SPEC&COLR D Sukumar Toney MD [address] [place] [address] [facility] [place] [address] [place] [address] Referral ID Status Reason Start Date Expiration Date V isits Requested Visits Authorized [id number] Closed Auto-Generate d Referral 10/13/2022 10/13/2023 1 1 [facility] for visit Narrative* Diagnostic Procedure Only (Routine) - Closed Specialty Diagnoses / Procedures Referred By Contac t Referred To Contact [facility] Diagnoses Precordial pain OTT (dyspnea on exertion) Primary hypertension Procedures NM CARDIAC PERF STRESS/PHARM MYOCARDIAL SPECT MULTIPLE STUDIES Sukumar Toney MD [address] [place] [address] [facility] [address] [place] [address] Referral ID Status Reason Start Date Expiration Date V isits Requested Visits Authorized [id number] Closed Auto-Generate d Referral 10/13/2022 11/12/2023 1 1 [facility] for visit Narrative* Outpatient Procedure (Routine) - Closed Specialty Diagnoses / Procedures Referred By Contac t Referred To Contact Diagnoses History of rectal cancer Procedures COLONOSCOPY SCREENING COLONOSCOPY FLX DX W/COLLJ SPEC WHEN Artem Osborne MD [address] [place] [address] Phone: tel: fax: [place] [address] Phone: tel: Referral ID Status Reason Start Date Expiration Date V isits Requested Visits Authorized [id number] Closed Auto-Generate d Referral 05/13/2024 08/11/2024 1 1 [facility] Reason for Referral Status Reason Specialty Diagnoses / Procedures Referred By Contact Referred To Contact Ref Not Required PCP Requested Referral Diagnoses Anxiety with depression Procedures [facility] Belgica Herrera [address] [place] [address] Status Reason Specialty Diagnoses / Procedures Referred By Contact Referred To Contact Ref Not Required PCP Requested Referral Diagnoses Chronic bilateral low back pain with sciatica, sciatica laterality unspecified Procedures CONSULT TO PHYSICAL THERAPY (AG) Javier Belgica Brandon [facility] [place] [address] Status Reason Specialty Diagnoses / Procedures Referred By Contact Referred To Contact Authorized PCP Requested Referral Orthopedics Diagnoses Chronic bilateral low back pain with sciatica, sciatica laterality unspecified Procedures CONSULT TO ORTHOPAEDIC SURGERY NEW PATIENT VISIT LEVEL 5 Javier Belgica Brandon [facility] [place] [address] Status Reason Specialty Diagnoses / Procedures Referred By Contact Referred To Contact Authorized PCP Requested Referral Ent - Otolaryngology Diagnoses Dizziness Tinnitus aurium, bilateral Procedures CONSULT TO ENT NEW PATIENT VISIT LEVEL 5 Belgica Herrera [facility] [place] [address] Status Reason Specialty Diagnoses / Procedures Referred By Contact Referred To Contact Authorized PCP Requested Referral Ophthalmology Diagnoses Diabetes mellitus due to underlying condition, uncontrolled, with hyperglycemia (HCC) Dizziness Procedures CONSULT TO OPHTHALMOLOGY NEW PATIENT VISIT LEVEL 5 Javier Belgica Brandon [facility] [place] [address] Status Reason Specialty Diagnoses / Procedures Referred By Contact Referred To Contact Authorized PCP Requested Referral Diagnoses Diabetes mellitus due to underlying condition, uncontrolled, with hyperglycemia (HCC) Obesity, Class II, BMI 35-39.9 Procedures CONSULT TO DIABETES EDUCATION NEW PATIENT VISIT LEVEL 5 Belgica Herrera [facility] [place] [address] Status Reason Specialty Diagnoses / Procedures Referred By Contact Referred To Contact Authorized PCP Requested Referral Orthopedics Diagnoses Left shoulder pain, unspecified chronicity Procedures CONSULT TO ORTHOPAEDIC SURGERY NEW PATIENT VISIT LEVEL 5 Javier Belgica Brandon [facility] [place] [address] Status Reason Specialty Diagnoses / Procedures Referred By Contact Referred To Contact Ref Not Required PCP Requested Referral Diagnoses Left shoulder pain, unspecified chronicity Procedures CONSULT TO PHYSICAL THERAPY (AG) Belgica Herrera [facility] [place] [address] Status Reason Specialty Diagnoses / Procedures Referred By Contact Referred To Contact Authorized PCP Requested Referral Endocrinology Diagnoses Uncontrolled type 2 diabetes mellitus with hyperglycemia (HCC) Procedures CONSULT TO ENDOCRINOLOGY NEW PATIENT VISIT LEVEL 5 Belgica Herrera [address] [place] [address] Status Reason Specialty Diagnoses / Procedures Referred By Contact Referred To Contact Authorized PCP Requested Referral Ophthalmology Diagnoses Screening for diabetic retinopathy Uncontrolled type 2 diabetes mellitus with hyperglycemia (HCC) Procedures CONSULT TO OPHTHALMOLOGY NEW PATIENT VISIT LEVEL 5 Belgica Herrera [facility] [place] [address] Status Reason Specialty Diagnoses / Procedures Referred By Contact Referred To Contact Ref Not Required PCP Requested Referral Neurology Diagnoses Chronic nausea Chronic vertigo Procedures CONSULT TO NEUROLOGY Belgica Herrera [facility] [place] [address] Status Reason Specialty Diagnoses / Procedures Referred By Contact Referred To Contact Authorized PCP Requested Referral Gastroenterology Diagnoses Drooling Procedures CONSULT TO GASTROENTEROLOGY NEW PATIENT VISIT LEVEL 5 Belgica Herrera [address] [place] [address] Status Reason Specialty Diagnoses / Procedures Referred By Contact Referred To Contact Authorized PCP Requested Referral Rheumatology Diagnoses Myalgia Procedures CONSULT TO RHEUM/IMMUN DISEASE NEW PATIENT VISIT LEVEL 5 Belgica Herrera [facility] [place] [address] Specialty Diagnoses / Procedures Referred By Vadim t Referred To Contact MR IMAGING Diagnoses Malignant neoplasm of rectosigmoid junction (HCC) Procedures MRI PELVIS WO/W IVCON MRI PELVIS W/WO CONTRAST Artem Ahmadi MD [address] [address] Mr Imaging Referral ID Status Reason Start Date Expiration Date V isits Requested Visits Authorized Closed Auto-Generate d Referral 06/10/2021 01/10/2022 1 1 Specialty Diagnoses / Procedures Referred By Vadim t Referred To Contact Ophthalmology Diagnoses Screening for diabetic retinopathy Procedures CONSULT TO OPHTHALMOLOGY OFFICE/OUTPATIENT [facility] 60-74 MINUTES Belgica Vega, DO [address] [place] [address] Referral ID Status Reason Start Date Expiration Date Visits Requested Visits Authorized [id number] Authorized PCP Requested Referral 09/20/2021 09/20/2022 1 1 Specialty Diagnoses / Procedures Referred By Contac t Referred To Contact Nephrology Diagnoses Elevated serum creatinine Microalbuminuria Procedures CONSULT TO NEPHROLOGY OFFICE/OUTPATIENT [facility] 60-74 MINUTES Belgica Vega DO [address] [place] [address] Referral ID Status Reason Start Date Expiration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 Lymphadenopathy: He has no cervical adenopathy. Neurological: He is alert and oriented to person, place, and time. Skin: Skin is warm, dry and intact. Psychiatric: Affect normal. No visits with results within 1 Day(s) from this visit. Latest known visit with results is: Appointment on 02/17/2020 Component Date Value Ref Range Status WBC 02/17/2020 7.97 3.70 - 11.00 k/uL Final RBC 02/17/2020 5.47 4.20 - 6.00 m/uL Final Hemoglobin 02/17/2020 15.9 13.0 - 17.0 g/dL Final Hematocrit 02/17/2020 47.4 39.0 - 51.0 % Final MCV 02/17/2020 86.7 80.0 - 100.0 fL Final MCH 02/17/2020 29.1 26.0 - 34.0 pg Final MCHC 02/17/2020 33.5 30.5 - 36.0 g/dL Final RDW-CV 02/17/2020 13.1 11.5 - 15.0 % Final Platelet Count 02/17/2020 296 150 - 400 k/uL Final MPV 02/17/2020 10.9 9.0 - 12.7 fL Final Neut% 02/17/2020 68.9 % Final Abs Neut 02/17/2020 5.50 1.45 - 7.50 k/uL Final Lymph% 02/17/2020 20.3 % Final Abs Lymph 02/17/2020 1.62 1.00 - 4.00 k/uL Final [place]% 02/17/2020 9.2 % Final Abs [place] 02/17/2020 0.73 <0.87 k/uL Final Eosin% 02/17/2020 0.5 % Final Abs Eosin 02/17/2020 0.04 <0.46 k/uL Final Baso% 02/17/2020 0.3 % Final Abs Baso 02/17/2020 <0.03 <0.11 k/uL Final Immature Gran % 02/17/2020 0.8 % Final Abs Immature Gran 02/17/2020 0.06 <0.10 k/uL Final NRBC 02/17/2020 0.0 0.0 /100 WBC Final Absolute nRBC 02/17/2020 <0.01 <0.01 k/uL Final Diff Type 02/17/2020 Auto Final Protein, Total 02/17/2020 7.0 6.3 - 8.0 g/dL Final Albumin 02/17/2020 4.1 3.9 - 4.9 g/dL Final Calcium, Total 02/17/2020 9.3 8.5 - 10.2 mg/dL Final Bilirubin, Total 02/17/2020 0.4 0.2 - 1.3 mg/dL Final Alkaline Phosphatase 02/17/2020 117* 38 - 113 U/L Final AST 02/17/2020 20 14 - 40 U/L Final ALT 02/17/2020 18 10 - 54 U/L Final Glucose 02/17/2020 322* 74 - 99 mg/dL Final The [place] [employer] (ADA) provides guidance for cutoff values for fasting glucose andrandom glucose. The ADA defines fasting as no caloric intake for at least 8 hours. Fasting plasma glucose results between 100 to 125 mg/dL indicate increased risk for diabetes (prediabetes). Fasting plasma glucose results greater than or equal to 126 mg/dL meet the criteria for diagnosis of diabetes. In the absence of unequivocal hyperglycemia, results should be confirmed by repeat testing. In a patient with classic symptoms of hyperglycemia or hyperglycemic crisis, random plasma glucose results greater than or equal to 200 mg/dL meet the criteria for diagnosis of diabetes. Reference: Standards of Medical Care in Diabetes 2016, [place] [employer]. Diabetes Care. 2016.39(Suppl 1). BUN 02/17/2020 21 9 - 24 mg/dL Final Creatinine 02/17/2020 0.86 0.73 - 1.22 mg/dL Final Sodium 02/17/2020 137 136 - 144 mmol/L Final Potassium 02/17/2020 4.8 3.7 - 5.1 mmol/L Final Chloride 02/17/2020 103 97 - 105 mmol/L Final CO2 02/17/2020 23 22 - 30 mmol/L Final Anion Gap 02/17/2020 11 9 - 18 mmol/L Final eGFR- 02/17/2020 >60 Final eGFR-All Other Races 02/17/2020 >60 Final eGFR (Estimated GFR) Units of measure: mL/min/1.73 meters squared eGFR is derived from the reexpressed MDRD Study equation using the following parameters: serum creatinine, age, gender and race. The creatinine assay has been calibrated to be traceable to IDMS. An eGFR <60 mL/min/1.73m2 for >3 months is consistent with chronic kidney disease. Refer to KDOQI guidelines for clinical interpretation. In patients with unstable renal function, e.g. those with acute kidney injury, the eGFR may not accurately reflect actual GFR. Cholesterol, Total 02/17/2020 223* <200 mg/dL Final <200 mg/dL, Desirable 200-239 mg/dL, Borderline high >239 mg/dL, High Triglyceride 02/17/2020 224* <150 mg/dL Final <150 mg/dL, Normal 150-199 mg/dL, Borderline high 200-499 mg/dL, High >499 mg/dL, Very high HDL Cholesterol 02/17/2020 42 >39 mg/dL Final 40-59 mg/dL, Acceptable >59 mg/dL, High: Negative risk factor for coronary heart disease <40 mg/dL, Low: Positive risk factor for coronary heart disease Non HDL Cholesterol 02/17/2020 181* <130 mg/dL Final <130 mg/dL, Optimal 130-159 mg/dL, Near optimal/above optimal 160-189 mg/dL, Borderline high 190-219 mg/dL, High >219 mg/dL, Very high Secondary prevention optimal non HDL Cholesterol levels are recommended to be <100 mg/dL Fasting Time 02/17/2020 19 hrs Final VLDL Cholesterol 02/17/2020 45* <30 mg/dL Final TC:HDL Ratio 02/17/2020 5.31* <5.10 Final LDL Cholesterol 02/17/2020 136* <100 mg/dL Final <100 mg/dL, Optimal 100-129 mg/dL, Near optimal/above optimal 130-159 mg/dL, Borderline high 160-189 mg/dL, High >189 mg/dL, Very high Secondary prevention optimal LDL Cholesterol levels are recommended to be < 70 mg/dL LDL:HDL Ratio 02/17/2020 3.24* <2.54 Final Reference: 1. National Cholesterol Education Program ATP III Guideline At-A-Glance Quick Desk Reference: National Heart, Lung, and Blood [place]. National Institutes of Health. 2001: NIH Publication No. 01-3305. 2. An International Atherosclerosis Society position paper: global recommendations for the management of dyslipidemia: executive summary, Atherosclerosis. 2014: 232(2):410-413. PSA 02/17/2020 0.75 0.00 - 3.90 ng/mL Final Total PSA test methodology used is the Direct Chemiluminometric technology. TSH 02/17/2020 1.160 0.270 - 4.200 uU/mL Final Hemoglobin A1C 02/17/2020 13.2* 4.3 - 5.6 % Final [place] Diabetes [employer] guidelines indicate that patients with HgbA1c in the range 5.7-6.4% are at increased risk for development of diabetes, and intervention by lifestyle modification may be beneficial. HgbA1c greater or equal to 6.5% is considered diagnostic of diabetes. Estimated Average Glucose 02/17/2020 332 mg/dL Final eAG: (Estimated average glucose) is a calculated value from HgbA1c and is off premise service representative of the average blood glucose level in the last 2-3 month period. Vitamin D 25 Hydroxy 02/17/2020 18.8* 30.0 - 100.0 ng/mL Final Classification of 25 [place] Vitamin D status: Insufficiency/Moderate Deficiency: < or = 30 ng/ml. Sufficiency/Optimal Levels: 31-80 ng/mL Toxicity: > 100 ng/mL. Test performed by chemiluminescent immunoassay. Hep C Antibody IA 02/17/2020 Negative Negative Final HIV 12 Combo (Ag/Ab) 02/17/2020 Nonreactive Nonreactive Final [place] Rev. Code 3701.243(E): This information has been disclosed to you from confidential records protected from disclosure by state law. You shall make no further disclosure of this information without the specific, written, and informed release of the individual to whom it pertains or as otherwisepermitted by state law. A general authorization for the release of medical or other information is not sufficient for the purpose of the release of HIV test results or diagnoses. HIV-1/2 AB 02/17/2020 Final Test not indicated. HIV Interpretation 02/17/2020 Final No evidence of HIV-1 or HIV-2 infection. Should recent infection be suspected, repeat testing may be considered 2-3 weeks after this draw. Creatinine, Ur Random (UCRR) 02/17/2020 88.4 46.8 - 314.5 mg/dL Final Albumin, Urine Random 02/17/2020 823.2 mg/L Final Albumin/Creat Ratio 02/17/2020 931* <30 mg/g Final Adult Male and Female Nephrotic Criteria: <30 mg/g is considered normal to mildly increased 30-300 mg/g is considered moderately increased >300 mg/g is considered severely increased KDIGO. (2013). KDIGO 2012 Clinical Practice Guideline for the Evaluation and Management of Chronic Kidney Disease. Official Journal of the International Society of Nephrology, 3(1), 1-150. Procedure Notes: No notes on file New medication(s) prescribed today: Yes: . Discussed new medication dosage, usage, goals of therapy, and side effects. Patient has been apprised of any potential drug interactions to be aware of. Patient expresses understanding. Counseling completed in adopting health behaviors such as avoiding excessive alcohol use, avoid tobacco use, improve nutrition, and engage in physical activities. Copy of written care plan, clinical summary, treatment plan, new medications, goals, and self management requirements were given to patient. Assessment/Plan: ASSESSMENT/PLAN: 1. Uncontrolled hypertension - ICD9: 401.9, ICD10: I10 (primary diagnosis) - suboptimal control - factors affecting control of BP include being overweight and lack of exercise. - Continue current medication(s) - Encouraged dietary sodium restriction/DASH diet - Recommended regular aerobic exercise. - Recommend home blood pressure monitoring, to bring results in on next visit - Discussed need and benefit for weight loss. - Follow up in 1 month for BP recheck. - Goal of BP <130/80 EKG shows NSR with heart rate of 88, no comparison EKG is currently available for review., Patient informed of results 2. Diabetes mellitus due to underlying condition, uncontrolled, with hyperglycemia (HCC) - ICD9: 249.81, 790.29, ICD10: E08.65 The hemoglobin A1c goal for a diabetic is 7 or less. - CONSULT TO DIABETES EDUCATION - CONSULT TO OPHTHALMOLOGY 3. Obesity, Class II, BMI 35-39.9 - ICD9: 278.00, ICD10: E66.9 Weight decreasing - Behavioral intervention - CONSULT TO DIABETES EDUCATION 4. Chronic bilateral low back pain with sciatica, sciatica laterality unspecified - ICD9: 724.2, 724.3, 338.29, ICD10: M54.40, G89.29 Stable 5. Marijuana use - ICD9: 305.20, ICD10: F12.90 Stable 6. Microalbuminuria - ICD9: 791.0, ICD10: R80.9 Briefly discussed microalbuminuria 7. Vitamin D deficiency - ICD9: 268.9, ICD10: E55.9 Dietary sources of vitamin D include fatty fishes such as salmon, sardines, tuna, mushrooms, cod liver oil, fortified milk, fortified soy milk, yogurt and egg yolks. Exposure to sunlight can also cause your skin to make vitamin D. Use of sunscreen with SPF 50 is recommended. Patient continues to take 3000 units per day of vitamin D if desires 8. Mixed hyperlipidemia - ICD9: 272.2, ICD10: E78.2 - suboptimal control - Encouraged following a low fat, low cholesterol diet. 9. Elevated alkaline phosphatase level - ICD9: 790.5, ICD10: R74.8 10. Tinnitus aurium, bilateral - ICD9: 388.31, ICD10: H93.13 - CONSULT TO ENT - HEARING SCREENING 11. Dizziness - ICD9: 780.4, ICD10: R42 Briefly discussed with patient possibility of M ni re's disease - CONSULT TO OPHTHALMOLOGY - CONSULT TO ENT - IV CONTRAST (RADIOLOGY PROCEDURE) - CREATININE BLD 12. Dizziness and giddiness - ICD9: 780.4, ICD10: R42 Recommend rest, increase fluids, change positions slowly - CTA HEAD WO/W IVCON Belgica Herrera, DO If symptoms persist, worsen, or no improvement, patient is to call 911 and/or go to the nearest ED. documented in this encounter* Javier Belgica Brandon - 03/23/2020 3:52 PM EST Belgica Herrera DO [address] [place] [address] Visit Date: March 23, 2020 Mr.Jim Najma Ashton Date of : 1960 MRN/E #: [id number] History of Present Illness José Manuel Ashton is a 59 year old male. Patient presents to the clinic today for HTN HPI Patient has history of hypertension. BP during last office visit was 144/82. BP today is 147/89. During last office visit he indicated he had only taken lisinopril for 2 days.Pt doesn't take BP at home. Tolerating med well. Having trouble getting acto [facility] met, has letter about it. Patient does have his history of diabetes mellitus. Hemoglobin A1c was 13.21-month ago. Patient watches his diet. Patient had indicated during last office visit that drug [facility] ran out of [employer] met. Was told that they would call once theygot it again but they never called him. Patient had recalled A1c being 8-9 one on [facility]. States [facility] didn't want to pay for it. Get D with metformin. Pt admits feet arenumb. Doesn't check BS at home either. It wigs him out. Patient also has history of hyperlipidemia. LDL was 136 last month. Patient also has history of vitamin D deficiency. Patient has history of chronic low back pain and sees orthopedics. PAST MEDICAL HISTORY Diagnosis Date Diabetes (HCC) PAST SURGICAL HISTORY Procedure Laterality Date NONE Social History Tobacco Use Smoking status: Former Smoker Smokeless tobacco: Never Used Substance Use Topics Alcohol use: Not Currently Drug use: Yes Types: Marijuana Comment: daily ALLERGIES No Known Allergies History reviewed. No pertinent family history. Current Outpatient Medications Medication Sig Dispense Refill lisinopril (ZESTRIL, PRINIVIL) 20 mg tablet Take 0.5 tablets by mouth once daily. 30 tablet 2 metFORMIN ER (GLUCOPHAGE XR) 500 mg 24 hr tablet Take 2 tablets by mouth daily with dinner. 30 tablet 2 pioglitazone (ACTOS) 15 mg tablet Take 1 tablet by mouth once daily. 30 tablet 2 No current facility-administered medications for this visit. Review of Systems Constitutional: Negative for chills, diaphoresis, fever and malaise/fatigue. Respiratory: Negative for shortness of breath. Cardiovascular: Negative for chest pain and leg swelling. Gastrointestinal: Negative for abdominal pain, nausea and vomiting. Genitourinary: Negative for dysuria. Musculoskeletal: Negative for joint pain. Skin: Negative for rash. Neurological: Positive for tingling. Negative for dizziness and headaches. Endo/Heme/Allergies: Negative for environmental allergies. Psychiatric/Behavioral: Negative for depression. BP 147/89 Pulse 85 Temp (Src) 98 (Left Tympanic) Resp 18 Ht 5' 10.276" (1.79m) Wt 271 lb 12.8 oz (123.3kg) SpO2 97% BMI 38.69 kg/(m^2). Physical Exam Constitutional: He is oriented to person, place, and time and well-developed, well-nourished, and in no distress. HENT: Head: Normocephalic and atraumatic. Right Ear: Tympanic membrane, external ear and ear canal normal. Left Ear: Tympanic membrane, external ear and ear canal normal. Nose: Nose normal. Mouth/Throat: Uvula is midline, oropharynx is clear and moist and mucous membranes are normal. Eyes: Pupils are equal, round, and reactive to light. Conjunctivae, EOM and lids are normal. Neck: Trachea normal. Cardiovascular: Normal rate, regular rhythm, normal heart sounds and normal pulses. Pulmonary/Chest: Effort normal and breath sounds normal. Abdominal: Soft. Bowel sounds are normal. There is no abdominal tenderness. There is no rigidity and no guarding. Musculoskeletal: Cervical back: Neck supple. Lymphadenopathy: He has no cervical adenopathy. Neurological: He is alert and oriented to person, place, and time. Skin: Skin is warm, dry and intact. Psychiatric: Affect normal. Feet:Shoes and socks removed, No deformities, ulcers, calluses, normal distal pulses and sensitive to 10 gm monofilament No visits with results within 1 Day(s) from this visit. Latest known visit with results is: Appointment on 02/17/2020 Component Date Value Ref Range Status WBC 02/17/2020 7.97 3.70 - 11.00 k/uL Final RBC 02/17/2020 5.47 4.20 - 6.00 m/uL Final Hemoglobin 02/17/2020 15.9 13.0 - 17.0 g/dL Final Hematocrit 02/17/2020 47.4 39.0 - 51.0 % Final MCV 02/17/2020 86.7 80.0 - 100.0 fL Final MCH 02/17/2020 29.1 26.0 - 34.0 pg Final MCHC 02/17/2020 33.5 30.5 - 36.0 g/dL Final RDW-CV 02/17/2020 13.1 11.5 - 15.0 % Final Platelet Count 02/17/2020 296 150 - 400 k/uL Final MPV 02/17/2020 10.9 9.0 - 12.7 fL Final Neut% 02/17/2020 68.9 % Final Abs Neut 02/17/2020 5.50 1.45 - 7.50 k/uL Final Lymph% 02/17/2020 20.3 % Final Abs Lymph 02/17/2020 1.62 1.00 - 4.00 k/uL Final [place]% 02/17/2020 9.2 % Final Abs [place] 02/17/2020 0.73 <0.87 k/uL Final Eosin% 02/17/2020 0.5 % Final Abs Eosin 02/17/2020 0.04 <0.46 k/uL Final Baso% 02/17/2020 0.3 % Final Abs Baso 02/17/2020 <0.03 <0.11 k/uL Final Immature Gran % 02/17/2020 0.8 % Final Abs Immature Gran 02/17/2020 0.06 <0.10 k/uL Final NRBC 02/17/2020 0.0 0.0 /100 WBC Final Absolute nRBC 02/17/2020 <0.01 <0.01 k/uL Final Diff Type 02/17/2020 Auto Final Protein, Total 02/17/2020 7.0 6.3 - 8.0 g/dL Final Albumin 02/17/2020 4.1 3.9 - 4.9 g/dL Final Calcium, Total 02/17/2020 9.3 8.5 - 10.2 mg/dL Final Bilirubin, Total 02/17/2020 0.4 0.2 - 1.3 mg/dL Final Alkaline Phosphatase 02/17/2020 117* 38 - 113 U/L Final AST 02/17/2020 20 14 - 40 U/L Final ALT 02/17/2020 18 10 - 54 U/L Final Glucose 02/17/2020 322* 74 - 99 mg/dL Final The [place] Diabetes Association (ADA) provides guidance for cutoff values for fasting glucose andrandom glucose. The ADA defines fasting as no caloric intake for at least 8 hours. Fasting plasma glucose results between 100 to 125 mg/dL indicate increased risk for diabetes (prediabetes). Fasting plasma glucose results greater than or equal to 126 mg/dL meet the criteria for diagnosis of diabetes. In the absence of unequivocal hyperglycemia, results should be confirmed by repeat testing. In a patient with classic symptoms of hyperglycemia or hyperglycemic crisis, random plasma glucose results greater than or equal to 200 mg/dL meet the criteria for diagnosis of diabetes. Reference: Standards of Medical Care in Diabetes 2016, [place] Diabetes Association. Diabetes Care. 2016.39(Suppl 1). BUN 02/17/2020 21 9 - 24 mg/dL Final Creatinine 02/17/2020 0.86 0.73 - 1.22 mg/dL Final Sodium 02/17/2020 137 136 - 144 mmol/L Final Potassium 02/17/2020 4.8 3.7 - 5.1 mmol/L Final Chloride 02/17/2020 103 97 - 105 mmol/L Final CO2 02/17/2020 23 22 - 30 mmol/L Final Anion Gap 02/17/2020 11 9 - 18 mmol/L Final eGFR- 02/17/2020 >60 Final eGFR-All Other Races 02/17/2020 >60 Final eGFR (Estimated GFR) Units of measure: mL/min/1.73 meters squared eGFR is derived from the reexpressed MDRD Study equation using the following parameters: serum creatinine, age, gender and race. The creatinine assay has been calibrated to be traceable to IDMS. An eGFR <60 mL/min/1.73m2 for >3 months is consistent with chronic kidney disease. Refer to KDOQI guidelines for clinical interpretation. In patients with unstable renal function, e.g. those with acute kidney injury, the eGFR may not accurately reflect actual GFR. Cholesterol, Total 02/17/2020 223* <200 mg/dL Final <200 mg/dL, Desirable 200-239 mg/dL, Borderline high >239 mg/dL, High Triglyceride 02/17/2020 224* <150 mg/dL Final <150 mg/dL, Normal 150-199 mg/dL, Borderline high 200-499 mg/dL, High >499 mg/dL, Very high HDL Cholesterol 02/17/2020 42 >39 mg/dL Final 40-59 mg/dL, Acceptable >59 mg/dL, High: Negative risk factor for coronary heart disease <40 mg/dL, Low: Positive risk factor for coronary heart disease Non HDL Cholesterol 02/17/2020 181* <130 mg/dL Final <130 mg/dL, Optimal 130-159 mg/dL, Near optimal/above optimal 160-189 mg/dL, Borderline high 190-219 mg/dL, High >219 mg/dL, Very high Secondary prevention optimal non HDL Cholesterol levels are recommended to be <100 mg/dL Fasting Time 02/17/2020 19 hrs Final VLDL Cholesterol 02/17/2020 45* <30 mg/dL Final TC:HDL Ratio 02/17/2020 5.31* <5.10 Final LDL Cholesterol 02/17/2020 136* <100 mg/dL Final <100 mg/dL, Optimal 100-129 mg/dL, Near optimal/above optimal 130-159 mg/dL, Borderline high 160-189 mg/dL, High >189 mg/dL, Very high Secondary prevention optimal LDL Cholesterol levels are recommended to be < 70 mg/dL LDL:HDL Ratio 02/17/2020 3.24* <2.54 Final Reference: 1. National Cholesterol Education Program ATP III Guideline At-A-Glance Quick Desk Reference: National Heart, Lung, and Blood [place]. National Institutes of Health. 2001: NIH Publication No. 01-3305. 2. An International Atherosclerosis Society position paper: global recommendations for the management of dyslipidemia: executive summary, Atherosclerosis. 2014: 232(2):410-413. PSA 02/17/2020 0.75 0.00 - 3.90 ng/mL Final Total PSA test methodology used is the Direct Chemiluminometric technology. TSH 02/17/2020 1.160 0.270 - 4.200 uU/mL Final Hemoglobin A1C 02/17/2020 13.2* 4.3 - 5.6 % Final [place] Diabetes Association guidelines indicate that patients with HgbA1c in the range 5.7-6.4% are at increased risk for development of diabetes, and intervention by lifestyle modification may be beneficial. HgbA1c greater or equal to 6.5% is considered diagnostic of diabetes. Estimated Average Glucose 02/17/2020 332 mg/dL Final eAG: (Estimated average glucose) is a calculated value from HgbA1c and is off premise service representative of the average blood glucose level in the last 2-3 month period. Vitamin D 25 Hydroxy 02/17/2020 18.8* 30.0 - 100.0 ng/mL Final Classification of 25 [place] Vitamin D status: Insufficiency/Moderate Deficiency: < or = 30 ng/ml. Sufficiency/Optimal Levels: 31-80 ng/mL Toxicity: > 100 ng/mL. Test performed by chemiluminescent immunoassay. Hep C Antibody IA 02/17/2020 Negative Negative Final HIV 12 Combo (Ag/Ab) 02/17/2020 Nonreactive Nonreactive Final [place] Rev. Code 3701.243(E): This information has been disclosed to you from confidential records protected from disclosure by state law. You shall make no further disclosure of this information without the specific, written, and informed release of the individual to whom it pertains or as otherwisepermitted by state law. A general authorization for the release of medical or other information is not sufficient for the purpose of the release of HIV test results or diagnoses. HIV-1/2 AB 02/17/2020 Final Test not indicated. HIV Interpretation 02/17/2020 Final No evidence of HIV-1 or HIV-2 infection. Should recent infection be suspected, repeat testing may be considered 2-3 weeks after this draw. Creatinine, Ur Random (UCRR) 02/17/2020 88.4 46.8 - 314.5 mg/dL Final Albumin, Urine Random 02/17/2020 823.2 mg/L Final Albumin/Creat Ratio 02/17/2020 931* <30 mg/g Final Adult Male and Female Nephrotic Criteria: <30 mg/g is considered normal to mildly increased 30-300 mg/g is considered moderately increased >300 mg/g is considered severely increased KDIGO. (2013). KDIGO 2012 Clinical Practice Guideline for the Evaluation and Management of Chronic Kidney Disease. Official Journal of the International Society of Nephrology, 3(1), 1-150. Procedure Notes: No notes on file New medication(s) prescribed today: Yes: . Discussed new medication dosage, usage, goals of therapy, and side effects. Patient has been apprised of any potential drug interactions to be aware of. Patient expresses understanding. Counseling completed in adopting health behaviors such as avoiding excessive alcohol use, avoid tobacco use, improve nutrition, and engage in physical activities. Copy of written care plan, clinical summary, treatment plan, new medications, goals, and self management requirements were given to patient. Assessment/Plan: ASSESSMENT/PLAN: 1. Uncontrolled hypertension - ICD9: 401.9, ICD10: I10 (primary diagnosis) - suboptimal control - factors affecting control of BP include white coat HTN, being overweight and lack of exercise. - Increase lisinopril (Zestril/Prinivil) - Encouraged dietary sodium restriction/DASH diet - Recommended regular aerobic exercise. - Recommend home blood pressure monitoring, to bring results in on next visit - Goal of BP <130/80 - LISINOPRIL 20 MG TABLET 2. Diabetes mellitus due to underlying condition, uncontrolled, with hyperglycemia (HCC) - ICD9: 249.81, 790.29, ICD10: E08.65 - METFORMIN ER 500 MG TABLET,EXTENDED RELEASE 24 HR recommend take this with dinner since that is his biggest meal - PIOGLITAZONE 15 MG TABLET 3. Vitamin D deficiency - ICD9: 268.9, ICD10: E55.9 4. Obesity, Class II, BMI 35-39.9 - ICD9: 278.00, ICD10: E66.9 Weight increasing - Behavioral intervention 5. Mixed hyperlipidemia - ICD9: 272.2, ICD10: E78.2 - suboptimal control - Encouraged following a low fat, low cholesterol diet. 6. Encounter for immunization - ICD9: V03.89, ICD10: Z23 - ZOSTER VACC RECOMBINANT,IM - INFLUENZA VACCINE QUADRIVALENT 6 MO - 64 YRS IM 7. Diabetic peripheral neuropathy associated with type 2 diabetes mellitus (HCC) - ICD9: 250.60, 357.2, ICD10: E11.42 newly diagnosed . Recommend Metformin to help prevent neurovascular complications of diabetes Belgica Herrera, Return in about 1 month (around 04/23/2020) for Diabetes, Hypertension. If symptoms persist, worsen, or no improvement, patient is to call 911 and/or go to the nearest ED. documented in this encounter* Belgica Herrera - 04/27/2020 3:51 PM EST Belgica Herrera DO [address] [place] [address] Visit Date: April 27, 2020 Mr.Jim Najma Ashton Date of : 1960 MRN/E #: [id number] History of Present Illness José Manuel Ashton is a 59 year old male. Patient presents to the clinic today for follow-up hypertension HPI . Patient has history of hypertension. BP during last office visit was 147/89. Patient had indicated back then he had only taken lisinopril for 2 days. Pt BP today is 155/93. Pt hasnt checked BP at home. Pt admits might skip a day or two. Hasnt taken yet today, takes with dinner. Takes all meds with dinner. Patient does have history of diabetes mellitus. Patient had indicated during last office visit he was having troubles getting [employer] met.. Patient does not check his blood sugar at home. Patient had indicated in the past that Metformin gave him diarrhea.. During last office visit patient was prescribed Metformin XR 1000 mg and lisinopril 10 mg total.Is tolerating med well, no D. Patient does have history of hyperlipidemia and vitamin D deficiency deficiency. Patient also has history of chronic low back pain and sees orthopedics. Patient ambulates with a cane. Patient does use marijuana. Pt states has been trying to walk more, its painful. Pt states he never saw ortho, pt was referred 02/14/20. Pt did have xray:IMPRESSION: 1. No radiographic evidence of acute osseous abnormalities. 2. Moderate multilevel degenerative changes. Pt admits he doesn't answer is phone at times. Pt has hx of LBP since 08/2018. States left leg numb still, pain radiates to left groin area. Currently LBP rated 7-8/10. Denies changes in bowel or bladder habits. Has not had back surgery Accupuncture didn't help. Had injection in past. States has hx of BPPV. Coughing, without effect. Sneezing andlaughing makes the pain worse. Has cut back on marijuana use. Has hx of 4 herniated discs 1989. Admits to dysuria at times. Pt states fell and upper back by left shoulder blade. , missed a step. Was going down to basement, landed on wood step. .Patient complains of shoulder pain x 2 weeks. Patient rates shoulder pain as 8/10. Pain is nonradiating. Patient denies any , redness or swelling. Raising the arm, pushing and pulling makes the pain worse. Rest helps the pain. Patient admits numbness And tingling. tingling. Lulu ent is ex handed. Patient admits history of shoulder problems. States in past injured shoulder, gotit caught on a glass rack during 2017 at work. PAST MEDICAL HISTORY Diagnosis Date Diabetes (HCC) PAST SURGICAL HISTORY Procedure Laterality Date NONE Social History Tobacco Use Smoking status: Former Smoker Smokeless tobacco: Never Used Substance Use Topics Alcohol use: Not Currently Drug use: Yes Types: Marijuana Comment: daily ALLERGIES No Known Allergies History reviewed. No pertinent family history. Current Outpatient Medications Medication Sig Dispense Refill lisinopril (ZESTRIL, PRINIVIL) 20 mg tablet Take 0.5 tablets by mouth once daily. 30 tablet 2 metFORMIN ER (GLUCOPHAGE XR) 500 mg 24 hr tablet Take 2 tablets by mouth daily with dinner. 30 tablet 2 pioglitazone (ACTOS) 15 mg tablet Take 1 tablet by mouth once daily. 30 tablet 2 No current facility-administered medications for this visit. Review of Systems Constitutional: Negative for chills, diaphoresis, fever and malaise/fatigue. Respiratory: Negative for shortness of breath. Cardiovascular: Negative for chest pain and leg swelling. Gastrointestinal: Negative for abdominal pain, nausea and vomiting. Genitourinary: Positive for dysuria. Musculoskeletal: Positive for back pain. Negative for joint pain. Skin: Negative for rash. Neurological: Negative for dizziness and headaches. Endo/Heme/Allergies: Negative for environmental allergies. Psychiatric/Behavioral: Negative for depression. BP 155/90 Pulse 86 Temp (Src) 98.6 (Right Tympanic) Resp 18 Ht 5' 10.276" (1.79m) Wt 271 lb 6.4 oz (123.1kg) SpO2 98% BMI 38.64 kg/(m^2). Physical Exam Constitutional: He is oriented to person, place, and time and well-developed, well-nourished, and in no distress. HENT: Head: Normocephalic and atraumatic. Right Ear: Tympanic membrane, external ear and ear canal normal. Left Ear: Tympanic membrane, external ear and ear canal normal. Nose: Nose normal. Mouth/Throat: Uvula is midline, oropharynx is clear and moist and mucous membranes are normal. Eyes: Pupils are equal, round, and reactive to light. Conjunctivae, EOM and lids are normal. Neck: Trachea normal. Cardiovascular: Normal rate, regular rhythm, normal heart sounds and normal pulses. Pulmonary/Chest: Effort normal and breath sounds normal. Abdominal: Soft. Bowel sounds are normal. There is no abdominal tenderness. There is no rigidity and no guarding. Musculoskeletal: Left shoulder: Tenderness and pain present. No swelling, effusion, laceration, bony tenderness, crepitus or spasms. Decreased range of motion. Decreased strength. Normal pulse. Cervical back: Neck supple. Lumbar back: Pain present. No swelling, edema, deformity, lacerations, spasms, tenderness or bony tenderness. Decreased range of motion. Normal pulse. Lymphadenopathy: He has no cervical adenopathy. Neurological: He is alert and oriented to person, place, and time. Skin: Skin is warm, dry and intact. Psychiatric: Affect normal. Left shoulder: Posterior aspect and left biceps with some muscle atrophy No visits with results within 1 Day(s) from this visit. Latest known visit with results is: Appointment on 02/17/2020 Component Date Value Ref Range Status WBC 02/17/2020 7.97 3.70 - 11.00 k/uL Final RBC 02/17/2020 5.47 4.20 - 6.00 m/uL Final Hemoglobin 02/17/2020 15.9 13.0 - 17.0 g/dL Final Hematocrit 02/17/2020 47.4 39.0 - 51.0 % Final MCV 02/17/2020 86.7 80.0 - 100.0 fL Final MCH 02/17/2020 29.1 26.0 - 34.0 pg Final MCHC 02/17/2020 33.5 30.5 - 36.0 g/dL Final RDW-CV 02/17/2020 13.1 11.5 - 15.0 % Final Platelet Count 02/17/2020 296 150 - 400 k/uL Final MPV 02/17/2020 10.9 9.0 - 12.7 fL Final Neut% 02/17/2020 68.9 % Final Abs Neut 02/17/2020 5.50 1.45 - 7.50 k/uL Final Lymph% 02/17/2020 20.3 % Final Abs Lymph 02/17/2020 1.62 1.00 - 4.00 k/uL Final [place]% 02/17/2020 9.2 % Final Abs [place] 02/17/2020 0.73 <0.87 k/uL Final Eosin% 02/17/2020 0.5 % Final Abs Eosin 02/17/2020 0.04 <0.46 k/uL Final Baso% 02/17/2020 0.3 % Final Abs Baso 02/17/2020 <0.03 <0.11 k/uL Final Immature Gran % 02/17/2020 0.8 % Final Abs Immature Gran 02/17/2020 0.06 <0.10 k/uL Final NRBC 02/17/2020 0.0 0.0 /100 WBC Final Absolute nRBC 02/17/2020 <0.01 <0.01 k/uL Final Diff Type 02/17/2020 Auto Final Protein, Total 02/17/2020 7.0 6.3 - 8.0 g/dL Final Albumin 02/17/2020 4.1 3.9 - 4.9 g/dL Final Calcium, Total 02/17/2020 9.3 8.5 - 10.2 mg/dL Final Bilirubin, Total 02/17/2020 0.4 0.2 - 1.3 mg/dL Final Alkaline Phosphatase 02/17/2020 117* 38 - 113 U/L Final AST 02/17/2020 20 14 - 40 U/L Final ALT 02/17/2020 18 10 - 54 U/L Final Glucose 02/17/2020 322* 74 - 99 mg/dL Final The [place] [employer] (ADA) provides guidance for cutoff values for fasting glucose andrandom glucose. The ADA defines fasting as no caloric intake for at least 8 hours. Fasting plasma glucose results between 100 to 125 mg/dL indicate increased risk for diabetes (prediabetes). Fasting plasma glucose results greater than or equal to 126 mg/dL meet the criteria for diagnosis of diabetes. In the absence of unequivocal hyperglycemia, results should be confirmed by repeat testing. In a patient with classic symptoms of hyperglycemia or hyperglycemic crisis, random plasma glucose results greater than or equal to 200 mg/dL meet the criteria for diagnosis of diabetes. Reference: Standards of Medical Care in Diabetes 2016, [place] [employer]. Diabetes Care. 2016.39(Suppl 1). BUN 02/17/2020 21 9 - 24 mg/dL Final Creatinine 02/17/2020 0.86 0.73 - 1.22 mg/dL Final Sodium 02/17/2020 137 136 - 144 mmol/L Final Potassium 02/17/2020 4.8 3.7 - 5.1 mmol/L Final Chloride 02/17/2020 103 97 - 105 mmol/L Final CO2 02/17/2020 23 22 - 30 mmol/L Final Anion Gap 02/17/2020 11 9 - 18 mmol/L Final eGFR- 02/17/2020 >60 Final eGFR-All Other Races 02/17/2020 >60 Final eGFR (Estimated GFR) Units of measure: mL/min/1.73 meters squared eGFR is derived from the reexpressed MDRD Study equation using the following parameters: serum creatinine, age, gender and race. The creatinine assay has been calibrated to be traceable to IDMS. An eGFR <60 mL/min/1.73m2 for >3 months is consistent with chronic kidney disease. Refer to KDOQI guidelines for clinical interpretation. In patients with unstable renal function, e.g. those with acute kidney injury, the eGFR may not accurately reflect actual GFR. Cholesterol, Total 02/17/2020 223* <200 mg/dL Final <200 mg/dL, Desirable 200-239 mg/dL, Borderline high >239 mg/dL, High Triglyceride 02/17/2020 224* <150 mg/dL Final <150 mg/dL, Normal 150-199 mg/dL, Borderline high 200-499 mg/dL, High >499 mg/dL, Very high HDL Cholesterol 02/17/2020 42 >39 mg/dL Final 40-59 mg/dL, Acceptable >59 mg/dL, High: Negative risk factor for coronary heart disease <40 mg/dL, Low: Positive risk factor for coronary heart disease Non HDL Cholesterol 02/17/2020 181* <130 mg/dL Final <130 mg/dL, Optimal 130-159 mg/dL, Near optimal/above optimal 160-189 mg/dL, Borderline high 190-219 mg/dL, High >219 mg/dL, Very high Secondary prevention optimal non HDL Cholesterol levels are recommended to be <100 mg/dL Fasting Time 02/17/2020 19 hrs Final VLDL Cholesterol 02/17/2020 45* <30 mg/dL Final TC:HDL Ratio 02/17/2020 5.31* <5.10 Final LDL Cholesterol 02/17/2020 136* <100 mg/dL Final <100 mg/dL, Optimal 100-129 mg/dL, Near optimal/above optimal 130-159 mg/dL, Borderline high 160-189 mg/dL, High >189 mg/dL, Very high Secondary prevention optimal LDL Cholesterol levels are recommended to be < 70 mg/dL LDL:HDL Ratio 02/17/2020 3.24* <2.54 Final Reference: 1. National Cholesterol Education Program ATP III Guideline At-A-Glance Quick Desk Reference: National Heart, Lung, and Blood [place]. National Institutes of Health. 2001: NIH Publication No. 01-3305. 2. An International Atherosclerosis Society position paper: global recommendations for the management of dyslipidemia: executive summary, Atherosclerosis. 2014: 232(2):410-413. PSA 02/17/2020 0.75 0.00 - 3.90 ng/mL Final Total PSA test methodology used is the Direct Chemiluminometric technology. TSH 02/17/2020 1.160 0.270 - 4.200 uU/mL Final Hemoglobin A1C 02/17/2020 13.2* 4.3 - 5.6 % Final [place] Diabetes [employer] guidelines indicate that patients with HgbA1c in the range 5.7-6.4% are at increased risk for development of diabetes, and intervention by lifestyle modification may be beneficial. HgbA1c greater or equal to 6.5% is considered diagnostic of diabetes. Estimated Average Glucose 02/17/2020 332 mg/dL Final eAG: (Estimated average glucose) is a calculated value from HgbA1c and is off premise service representative of the average blood glucose level in the last 2-3 month period. Vitamin D 25 Hydroxy 02/17/2020 18.8* 30.0 - 100.0 ng/mL Final Classification of 25 [place] Vitamin D status: Insufficiency/Moderate Deficiency: < or = 30 ng/ml. Sufficiency/Optimal Levels: 31-80 ng/mL Toxicity: > 100 ng/mL. Test performed by chemiluminescent immunoassay. Hep C Antibody IA 02/17/2020 Negative Negative Final HIV 12 Combo (Ag/Ab) 02/17/2020 Nonreactive Nonreactive Final [place] Rev. Code 3701.243(E): This information has been disclosed to you from confidential records protected from disclosure by state law. You shall make no further disclosure of this information without the specific, written, and informed release of the individual to whom it pertains or as otherwisepermitted by state law. A general authorization for the release of medical or other information is not sufficient for the purpose of the release of HIV test results or diagnoses. HIV-1/2 AB 02/17/2020 Final Test not indicated. HIV Interpretation 02/17/2020 Final No evidence of HIV-1 or HIV-2 infection. Should recent infection be suspected, repeat testing may be considered 2-3 weeks after this draw. Creatinine, Ur Random (UCRR) 02/17/2020 88.4 46.8 - 314.5 mg/dL Final Albumin, Urine Random 02/17/2020 823.2 mg/L Final Albumin/Creat Ratio 02/17/2020 931* <30 mg/g Final Adult Male and Female Nephrotic Criteria: <30 mg/g is considered normal to mildly increased 30-300 mg/g is considered moderately increased >300 mg/g is considered severely increased KDIGO. (2013). KDIGO 2012 Clinical Practice Guideline for the Evaluation and Management of Chronic Kidney Disease. Official Journal of the International Society of Nephrology, 3(1), 1-150. Procedure Notes: No notes on file New medication(s) prescribed today: None. Counseling completed in adopting health behaviors such as avoiding excessive alcohol use, avoid tobacco use, improve nutrition, and engage in physical activities. Copy of written care plan, clinical summary, treatment plan, new medications, goals, and self management requirements were given to patient. Assessment/Plan: ASSESSMENT/PLAN: 1. Uncontrolled hypertension - ICD9: 401.9, ICD10: I10 (primary diagnosis) - suboptimal control - Encouraged dietary sodium restriction/DASH diet - Recommended regular aerobic exercise. - Recommend home blood pressure monitoring, to bring results in on next visit - Discussed need and benefit for weight loss. - Follow up in 1 month for BP recheck. - Goal of BP <130/80 - AUTOMATIC BP MONITOR, DIAL 2. Diabetes mellitus due to underlying condition, uncontrolled, with hyperglycemia (HCC) - ICD9: 249.81, 790.29, ICD10: E08.65 - HGB A1C - ALBUMIN/CREAT RATIO RND UR - ACCUCHECK B/O 3. Mixed hyperlipidemia - ICD9: 272.2, ICD10: E78.2 - to be determined upon return of lab results - Encouraged following a low fat, low cholesterol diet. - LIPID PANEL BASIC 4. Marijuana use - ICD9: 305.20, ICD10: F12.90 5. Chronic bilateral low back pain with sciatica, sciatica laterality unspecified - ICD9: 724.2, 724.3, 338.29, ICD10: M54.40, G89.29 Chronic low back pain - PT consult - CONSULT TO PHYSICAL THERAPY (AG) - CONSULT TO ORTHOPAEDIC SURGERY 6. Lumbar radiculopathy - ICD9: 724.4, ICD10: M54.16 Chronic low back pain - PT consult 7. Dysuria - ICD9: 788.1, ICD10: R30.0 Intermittent - URINALYSIS, WITH MICROSCOPIC 8. Fall (on) (from) other stairs and steps, initial encounter - ICD9: E880.9, ICD10: W10.8XXA 9. Left shoulder pain, unspecified chronicity - ICD9: 719.41, ICD10: M25.512 - XR SHOULDER GENERAL 3V OR MORE AP/TRUE AP/OTHER LT - CONSULT TO PHYSICAL THERAPY (AG) - CONSULT TO ORTHOPAEDIC SURGERY Recommend heat pad for 20 minutes followed, by range of motion exercises which were discussed and demonstrated with patient. May alternate heat with ice as needed Belgica Herrera, Return in about 1 month (around 05/28/2020) for Diabetes, Hypertension, Medication follow-up. If symptoms persist, worsen, or no improvement, patient is to call 911 and/or go to the nearest ED. documented in this encounter* Carla Tripathi (Pt) - 05/05/2020 4:12 PM EST Episode Visit Count: 1 Therapist That Will Oversee The Plan Of Care: Carla Tripathi Start of Care Date: 05/05/20 Onset Date: 05/05/18 Plan of Care Certification Date: 05/05/20 Next Certification Due Date: 06/16/20 Patient Identified by Name and Date of : Yes [facility]ER[facility]Y PHYSICAL THERAPY EVALUATION PLAN OF CARE: Assessment: José Manuel Ashton presents with the chief complaint of low back pain. He presents with impairments of general strength, ROM, muscle endurance, and impaired gait. He is unable to balance in standing nor walking with a cane in his R hand. While walking he requires min assist to contact guard assist. He is also experiencing dizziness and nausea while standing and walking, making him at high risk for falls. Patient required minimal assistance x 2 to ambulate to vehicle after physical therapy evaluation. The effort required to transport self to physical therapy and the effort required for completion of physical therapy sessions may cause patient to be unsafe in the community and at home,resulting in increased fall risk. At this time, it is recommended that the patient completes home health physical therapy to promote patient safety and basic mobility for ADLs. He may benefit from skilled therapy services to improve the aforementioned impairments to improve ADLs and QOL and preventfuture falls. Prognosis: Poor Poor due to: clinical presentation;multiple co- morbidities;chronic nature of impairments Goals for Episode of Care: created on 05/05/20 through 06/16/20 Hall in home exercise program. Patient will follow up with home health physical therapy. Patient will decrease pain rating by 2 points to meet minimal clinical important difference for numeric pain rating scale. Patient will demonstrate increase in gross B LE strength to at least 4/5 during manual muscle testing in order to modify function for basic self-care tasks. Patient will be able to walk household and community distances with safe, functional gait pattern with trace report of dizziness/imbalance. Improve performance on 4 Stage Balance Test to at least 20 to reflect decreased fall risk. Patient Goals: Decrease back pain Planned Interventions, Frequency, and Duration: Current Frequency: 2x/week Duration: 6 weeks Total Number of Visits Planned: 12(TBD) Planned Treatment Interventions: Therapeutic exercise (24941);Neuromuscular re- education (75900);Manual therapy (29912);Therapeutic activities (00155);Self- correction management (74599);Gait Training (06736);Body Mechanics Training;E- Stim Unattended (99537);Ultrasound (50238) PLAN FOR NEXT VISIT: Hold outpatient PT at this time, patient to follow up with [facility] PT. Patient demonstrates good understanding of plan of care and treatment. The above goals and plan of care were discussed and agreed upon by patient/family. SUBJECTIVE: José Manuel Ashton is a 59 year old male seen today for chronic low back pain. He states in the he herniated 4 lumbar discs. Recently within the last 2 years he was injured while gettingout of the car. He states his L foot got caught in the car and Her Within the last two weeks he fell. In 2018 he had an injection in his L shoulder. After the injection he states he had BPPV. He getsdizziness and nausea with standing and movement. Patient Goals: Decrease back pain Functional Limitations: standing;walking;walking in the house;walking in the community;stair negotiation;bending;physical activities;weight bearing Prior Level of Function: Independent with restrictions Independent with the following restrictions: Walking with cane after BPPV in 2018 Intake Information: Prescription present Previous Treatment: Physical Therapy (for shoulder) Falls Interview: Two or more falls in the last year Falls Intervention: Patient referred for more thorough falls assessment.;More thorough falls assessment to be performed;Instructed patient on safety and use of assistive device and awareness in regards to falls prevention. Spine History Symptoms Location at Onset: Back;Thigh Symptoms Since Onset: Worsening Pain is Worse Always: Bending;Sitting;Walking;On the Move Pain is Better Always: No position Sleep Affected by Pain: Pain keeps from falling asleep;Pain awakens Pain: Pain Pain Level: 8 Pain Location: Low Back/Lumbar Spine - Right;Low Back/Lumbar Spine - Left;Groin - Left;Hip - Left Description: Dull;Sharp Frequency: Continuous PROMIS Scales T-scores: mean of general population = 50. 5 points is clinically meaningfully difference Percentiles provide an indication of how the patient's score ranks in relation to the general population. Higher percentile rankings indicate better function/quality of life. 50th percentile is the average of the general population and indicates half of respondents had a worse score. T-scores: mean of general population = 50. 5 points is clinically meaningfully difference Percentiles provide an indication of how the patient's score ranks in relation to the general population. Higher percentile rankings indicate better function/quality of life. 50th percentile is the average of the general population and indicates half of respondents had a worse score. OBJECTIVE MEASURES WITH LEVEL OF FUNCTION: Vision Vision Deficits: Saccades;Smooth Pursuits Saccades: Difficulty keeping eyes open during visual examination Smooth Pursuits: Difficulty keeping eyes open during visual exam Posture / Alignment Posture: Forward head;Rounded shoulders;Lateral Shift Spine Observations Spine presents with: Unable to assess, patient unable to maintain seated, sidelying, prone position Sensory Saccades: Difficulty keeping eyes open during visual examination Smooth Pursuits: Difficulty keeping eyes open during visual exam Sensation - Lumbar Sensation: Impaired(Decreased sensation of L LE) Lumbar Spine AROM Lumbar Spine AROM Comments: Unable to assess, patient unable to maintain standing position due to dizziness LE Flexibility Flexibility: (Unable to assess, patient unable to sit/lie sideyling/prone) Spine Joint Mobility Joint Mobility Comment: Unable to assess, patient unable to maintain seated, sidelying, prone position LE Strength R Hip Flexion (L2): 3+/5 R Hip ABduction: 3+/5 R Hip ADduction: 3+/5 R Hip Internal Rotation: 3+/5 R Hip External Rotation: 3+/5 R Knee Extension (L3): 4-/5 R Knee Flexion: 4-/5 R Ankle Dorsiflexion (L4): 4-/5 R Ankle Plantar Flexion: 4-/5 R Great Toes Extension (L5, S1): 3+/5 L Hip Flexion (L2): 2/5 L Hip ABduction: 2/5 L Hip ADduction: (deffered due to pain) L Hip Internal Rotation: (deffered due to pain) L Hip External Rotation: (deffered due to pain) L Knee Extension (L3): 3/5 L Knee Flexion: 3/5 L Ankle Dorsiflexion (L4): 4-/5 L Ankle Plantar Flexion: 4-/5 L Great Toes Extension (L5, S1): 3+/5 Gait Gait: Contact Guard Assistance(min assist <> CGA) Gait Device: Cane Gait Deviations: Left Lower Extremity;General Deviations Gait Deviations Left Lower Extremity: Heel strike during initial stance decreased;Lacks full knee extension during terminal swing;Lacks hip extension beyond mid-stance;Push off during terminal stancedecreased;Stance time decreased;Step length decreased;Trendelenburg;Weight bearing decreased General Deviations/Observations: Antalgic gait;Melody decreased;Difficulty changing direction/turning;Lateral sway increased;Non-functional gait speed;Step length decreased;Trunk Control Decreased;Wide base of support;UE weight bearing on assistive device excessive;Visual scanning/environmental awareness decreased Education: Education Learning Preferences: Demonstration;Explanation;Performance;Printed Materials Barriers: None Learning/educational needs: Health promotion;Safety;Home exercise program;Plan of Care;Gait Training;Body Mechanics Education Provided: Yes, see treatment interventions for education provided Education Provided To: Patient Education Mode/Type: Demonstration;Explanation/Discussion;Literature/Printed Materials;Performance Response to Education/Teach Back: States/Identifies;Return Demonstration TREATMENT: PT Treatment Interventions: Therapeutic Exercise Evaluation Billing: Jude: Evaluation - Moderate Complexity (74847) Therapeutic Exercise (67933): 1:1 time: 10 minutes (1 unit: 8-22 mins) Total time / Length of visit: 60 minutes Carla Tripathi PT documented in this encounter* Jayesh BarajasRt)Anne Marie - 05/14/2020 2:00 PM EST Radiology Service Progress Note PATIENT NAME: José Manuel Ashton DATE OF SERVICE: May 14, 2020 TIME: 2:56 PM PATIENT IDENTITY VERIFICATION COMPLETED USING TWO (2) IDENTIFIERS: Name and Date of confirmedby patient verbally and Name and Date of confirmed by identification band. FALL SCREENING: Has the patient had 2 falls in the last year or 1 fall with injury or currently using an Ambulatory Assistive Device (Walker, Cane, Wheelchair, Crutches, etc.)? Yes, Patient High Riskfor Falls What interventions were put in place to prevent falls during this visit? Offered Assistance with Transfers/Clothing, Instructed Patient to Remain Seated (Not on Exam Table) Until Exam and Increased Observations by Caregivers PATIENT GENDER DATA: Male PATIENT RELEVANT IMPLANT DATA REVIEWED: Not Applicable RADIOLOGY DEPARTMENT: General X-ray: Exam(s) Completed: Upper Extremity X- Ray(s): Shoulder, AP / TRUE AP / AXILLARY left : PERIPHERAL IV DATA: Not applicable SIGNED BY: RT Blane May 14, 2020 2:56 PM documented in this encounter* Juancho Benedict) - 05/28/2020 12:52 PM EST [facility] [address] [place] [address] Initial Intake Evaluation Patient Name: José Manuel Ashton : 1960 Referral Source: Belgica Herrera PCP: Belgica Herrera, DO The patient and I met for 60 minutes for this psychosocial evaluation. We met on the phone as he stated that he does not have the skills to use virtual technology. He gave verbal permission to talk on the phone, stated he was in a totally private place, and reported that he was not using any recording devices. The patient reported that he was referred for treatment by Dr. Herrera, his primary care physician, but he was unaware as to why she referred him for this assessment. HPI: José Manuel Ashton is a 59 year old male who presents today for a initial evaluation. Depression Screening: PHQ-9 All Questions 02/14/2020 05/28/2020 Little interest or pleasure in doing things - 3 Feeling down, depressed, or hopeless - 3 Trouble falling or staying asleep, or sleeping too much - 3 Feeling tired or having little energy - 3 Poor appetite or overeating - 3 Feeling bad about yourself - or that you are a failure or have let yourself or your family down - 3 Trouble concentrating on things, such as reading the newspaper or watching television - 3 Moving or speaking so slowly that other people could have noticed. Or the opposite - being so fidgety or restless that you have been moving around a lot more than usual - 3 Thoughts that you would be better off , or of hurting yourself in some way - 0 PHQ-9 Score 24 24 BRANDAN-7 Screening: BRANDAN-7 All Questions 05/28/2020 Nervous, anxious or on edge 3 Not being able to stop or control worrying 3 Worrying too much 3 Trouble relaxing 3 Restless 3 Annoyed or irritable 3 Afraid something awful might happen 0 BRANDAN-7 Score 18 Identifying Data: The patient is a 59-year-old male who has never been . He lives with his brother and his sister. His brother has never been . His sister has a family but he did not want to give any details about that. The patient stated that he recently moved from [place] to [place] 3 years ago to be closer to his family. The patient has been on disability for 3 years due to low back pain, shoulder pain, vertigo, and nausea. Presenting Problem: The patient stated that approximately 3 years ago he was given a steroid injection for shoulder pain. The next day he experienced vertigo, nausea, and his symptoms exacerbate when he stands and he gets some relief when he is sitting. 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 The patient stated that he also develops a symptom that he referred to as drill. He was given exercises to help with his movement but the nausea exacerbates when he does these exercises. Other than sitting the only relief that the patient reported getting comes from a combination of marijuana and an energy drink which she takes every morning. He stated that his marijuana use did not start after this injury as he has been smoking regularly since he was 11 or 12. Another problem that he has been having is that he does not want to see anybody. He does not want to see his family and does not want to see his friends. The patient stated that he does not like using technology. He does not know how to text. He will not use video conferencing as a means of interacting with others as it "wigs meout." Symptoms: Please see the PHQ-9 and BRANDAN-7 for a full review of his symptoms. In addition he reported that he has daily nausea, vertigo, and no interest in seeing people. Past Psychiatric History: The patient reported that he injured his back in the and was referred to a psychiatrist but could not remember the specific details of that assessment or treatment. Medical History PAST MEDICAL HISTORY Diagnosis Date Diabetes (HCC) Medications: Current Outpatient Medications Medication Sig lisinopril (ZESTRIL, PRINIVIL) 20 mg tablet Take 0.5 tablets by mouth once daily. metFORMIN ER (GLUCOPHAGE XR) 500 mg 24 hr tablet Take 2 tablets by mouth daily with dinner. pioglitazone (ACTOS) 15 mg tablet Take 1 tablet by mouth once daily. No current facility-administered medications for this visit. Allergies: ALLERGIES No Known Allergies Drug, Alcohol and Tobacco History Social History Tobacco Use Smoking status: Former Smoker Smokeless tobacco: Never Used Substance Use Topics Alcohol use: Not Currently Drug use: Yes Types: Marijuana Comment: daily The patient refused to discuss the illicit drugs he has used in his lifetime, stating that it was in the past.. Family History of Mental Illness and Substance Abuse: The patient stated that he was unaware of any psychiatric problems in the family as no one talks about those kinds of things. He stated that other members of the family have used marijuana but he didnot believe anyone had a problem. Personal History: The patient was born in [place], [place]. He was the youngest of 17 children born to his mother and father. Most of his siblings were in the home when he was born. He feels that his childhood was awesome. His mother worked as a homemaker. His father was a stabilizer operator. He recalled both of his parents working all day long. Many of his siblings have . The patient went to high school in [place], [place]. He was not a good student. He never graduated. 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 One of his brothersmoved to [place] and he moved with him in 1983 at the age of 23. 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 When his brother got he moved into a [facility] where everybody had their own room. His brother still resides in [place] but he felt that there were other family members that he would like to be close to and moved back to [place] last December. Support Systems: At the present time he is getting support from his brother and sister with whom he lives. However, he stated that he has not talked to other family members or friends since he moved back into this area and attributed the P PPD to his reluctance to talk to others. Legal History: Deferred Mental Status Exam: Appearance : N/A. Demeanor: Uncomfortable. Cooperativeness: Fair Behavior: Appropriate Consciousness: Alert, oriented to time, place and person. Mood: Uncomfortable. Affect: Guarded Speech: Normal Form of Thought: Normal. Abstract Thinking: Normal. Thought Content: [place]. Cognition - Immediate Recall : Intact Remote Memory: Poor Insight: Fair Judgment: Fair Intelligence: Average. Suicidal Ideation/Risk: No suicidal ideation, intent or plan. Homicidal Thoughts: No homicidal ideation, intent or plan. Plan Assessment: The patient reported that his primary care physician, Dr. Herrera, referred him for this psychosocialevaluation although he was not quite sure what was supposed to happen during this evaluation. He was assessed for depression and anxiety and symptomatically was in the severe range for both. At the present time he is not being medicated for either condition. His primary complaint was that he believed that he developed P PPD after a steroid injection 3 years ago and has never been the same since. He was open to the idea of working in an interdisciplinary program in which there is a close workingrelationship between neurology and psychiatry. Diagnosis:Severe episode of recurrent major depressive disorder, without psychotic features (hcc) (primary encounter diagnosis) Anxiety disorder, unspecified type Treatment Plan: I indicated to the patient that I will have a consultation with our neuro psychologist, Dr. Bella, and reviewed treatment options with her including referral to an interdisciplinary neurology/psychiatry program. Discussed plan with patient and patient amenable to plan.. Notes may be shared with all providers: Yes Follow - Up: I will recontact the patient after discussing his care with Dr. Bella. Discussed goals/contract with patient. José Manuel Ashton agrees with below: To be goal oriented Willing to do homework To be totally honest with myself and RUDY Lee I will keep my appointments. I will develop a positive relationship with RUDY Lee LISW-S documented in this encounter* Belgica Herrera - 05/28/2020 4:07 PM EST Belgica Herrera DO [address] [place] [address] Visit Date: May 28, 2020 Mr.Jim Najma Ashton Date of : 1960 MRN/E #: [id number] History of Present Illness José Manuel Ashton is a 59 year old male. Patient presents to the clinic today for follow-up hypertension HPI Patient has history of hypertension. BP today is 139/87. BP during last office visit was 155/93. Patient hasnt checked BP at home. Didn't give paperwork for BP to pharmacy. States will take rx to pharmacy to get machine. Patient complains of nausea x 3 yrs now. Patient denies any vomiting, diarrhea or stomach pain. Pt states will get drool in am , its in his throat. Patient denies any heartburn or acid taste. Denies stomach pain. Unsure if seen GI in past, seen so many dr's in past. States gets N and dizzy that's why he is upright. Pt states MJ helps with N, smokes 3 joints per day. Drinks energy drink, it helps in am, no other caffeine. States gets dizzy with getting X 3 yrs. States neurolgist told him in the past has BPPV. Denies vertigo, feels equilibrium off, then admits when lays down room spins, feels like floating feels best in sitting position. Noticed after shot in shoulder. When does activity, like exercises for BPPV, N is stronger. Patient complains of body aches and pains. Has had these since the duet to herniated 1-4 forback. Has had x 2 yrs. Had hurt shoulder and dealing with that. Pt indicates accupuncture in past didn't help aches and pains. .P)t had left shoulder xr 05/14 :IMPRESSION: Mild osteoarthritis of the acromioclavicular joint. Patient indicated he had also lost his footing while getting out of his vehicle and use his shoulder to help break his fall, landed on his butt. Patient previously had fallen down basement steps lastmon. Patient has history of shoulder injury from 2017 at work. Had gotten his shoulder caught on a glass rack at work. Patient has history of chronic low back pain and was referred to orthopedics in the past on February 14, 2020 but never saw orthopedics. Patient had indicated he does not answer his phone all the time. Patient ambulates with a cane. Patient does use marijuana. Patient indicates had history of for herniated disc during 1989. Patient is in PT for chronic low back pain.They recommended in home PT, doesn't want to do PT at home. Patient also has history of diabetes. Patient is on Metformin XR 1000 mg and is tolerating it well.Hasnt checked BS. States gets pissed off when cant get numbers down. In the past plain Metformin gave him diarrhea.Pt AIC was 10. 5. On May 14, 2020. Pt has hx of HLD, likes peanut butter. Patient's cholesterol was 228, triglycerides was 302 and LDLwas 127 on May 14, 2020. Pt seeing Dr. Benedict psychiatrist. For depression with psychotic features and anxiety. States MJ helps with stress and anger, helps calm him down. PAST MEDICAL HISTORY Diagnosis Date Diabetes (HCC) PAST SURGICAL HISTORY Procedure Laterality Date NONE Social History Tobacco Use Smoking status: Former Smoker Smokeless tobacco: Never Used Substance Use Topics Alcohol use: Not Currently Drug use: Yes Types: Marijuana Comment: daily ALLERGIES No Known Allergies History reviewed. No pertinent family history. Current Outpatient Medications Medication Sig Dispense Refill pioglitazone (ACTOS) 30 mg tablet Take 1 tablet by mouth once daily. 30 tablet 2 metFORMIN ER (GLUCOPHAGE XR) 750 mg 24 hr tablet Take 1 tablet by mouth daily with dinner. 60 tablet 2 lisinopril (ZESTRIL, PRINIVIL) 10 mg tablet Take 1 tablet by mouth once daily. 30 tablet 2 No current facility-administered medications for this visit. Review of Systems Constitutional: Negative for chills, diaphoresis, fever and malaise/fatigue. Respiratory: Negative for shortness of breath. Cardiovascular: Negative for chest pain and leg swelling. Gastrointestinal: Positive for nausea. Negative for abdominal pain, blood in stool, constipation, diarrhea, heartburn, melena and vomiting. Genitourinary: Negative for dysuria. Musculoskeletal: Positive for back pain, joint pain and myalgias. Skin: Negative for rash. Neurological: Negative for dizziness and headaches. Endo/Heme/Allergies: Negative for environmental allergies. Psychiatric/Behavioral: Negative for depression. Temp 97.6 Resp 16 Ht 5' 10" (1.78m) Wt 269 lb 11.2 oz (122.3kg) SpO2 98% BMI 38.70 kg/(m^2). Physical Exam Constitutional: He is oriented to person, place, and time and well-developed, well-nourished, and in no distress. HENT: Head: Normocephalic and atraumatic. Right Ear: Tympanic membrane, external ear and ear canal normal. Left Ear: Tympanic membrane, external ear and ear canal normal. Nose: Nose normal. Mouth/Throat: Uvula is midline, oropharynx is clear and moist and mucous membranes are normal. Eyes: Pupils are equal, round, and reactive to light. Conjunctivae, EOM and lids are normal. Neck: Trachea normal. Cardiovascular: Normal rate, regular rhythm, normal heart sounds and normal pulses. Pulmonary/Chest: Effort normal and breath sounds normal. Abdominal: Soft. Bowel sounds are normal. There is no abdominal tenderness. There is no rigidity and no guarding. Musculoskeletal: Cervical back: Neck supple. Lymphadenopathy: He has no cervical adenopathy. Neurological: He is alert and oriented to person, place, and time. Skin: Skin is warm, dry and intact. Psychiatric: Affect normal. Patient ambulates with cane, movements are slow and stiff No visits with results within 1 Day(s) from this visit. Latest known visit with results is: Appointment on 05/14/2020 Component Date Value Ref Range Status Creatinine 05/14/2020 1.06 0.73 - 1.22 mg/dL Final eGFR- 05/14/2020 >60 Final eGFR-All Other Races 05/14/2020 >60 Final eGFR (Estimated GFR) Units of measure: mL/min/1.73 meters squared eGFR is derived from the reexpressed MDRD Study equation using the following parameters: serum creatinine, age, gender and race. The creatinine assay has been calibrated to be traceable to IDMS. An eGFR <60 mL/min/1.73m2 for >3 months is consistent with chronic kidney disease. Refer to KDOQI guidelines for clinical interpretation. In patients with unstable renal function, e.g. those with acute kidney injury, the eGFR may not accurately reflect actual GFR. Color 05/14/2020 Yellow Yellow Final Clarity 05/14/2020 Clear Clear Final Glucose, Urine 05/14/2020 >=1000 mg/dL* Negative Final Bilirubin, Urine 05/14/2020 Negative Negative Final Ketones, Urine 05/14/2020 Trace* Negative Final Specific [place], Ur 05/14/2020 1.042* 1.005 - 1.030 Final Hemoglobin/Blood,Ur 05/14/2020 Small* Negative Final pH, Urine 05/14/2020 5.5 5.0 - 8.0 Final Protein, Urine 05/14/2020 100 mg/dL* Negative Final Urobilinogen 05/14/2020 0.2 EU/dL 0.2-1.0 EU/dL Final Nitrites 05/14/2020 Negative Negative Final Leuk Esterase 05/14/2020 Negative Negative Final WBC, Urine 05/14/2020 0-5 /HPF 0-5 /HPF Final RBC, Urine 05/14/2020 3-5 /HPF* 0-3 /HPF Final Bacteria 05/14/2020 None Seen None Seen /HPF Final Squamous Epithelial Cells 05/14/2020 1.7 /HPF Final Casts, Hyaline 05/14/2020 1-3 /LPF* 0 /LPF Final Hemoglobin A1C 05/14/2020 10.5* 4.3 - 5.6 % Final [place] Diabetes Association guidelines indicate that patients with HgbA1c in the range 5.7-6.4% are at increased risk for development of diabetes, and intervention by lifestyle modification may be beneficial. HgbA1c greater or equal to 6.5% is considered diagnostic of diabetes. Estimated Average Glucose 05/14/2020 255 mg/dL Final eAG: (Estimated average glucose) is a calculated value from HgbA1c and is off premise service representative of the average blood glucose level in the last 2-3 month period. Cholesterol, Total 05/14/2020 228* <200 mg/dL Final <200 mg/dL, Desirable 200-239 mg/dL, Borderline high >239 mg/dL, High Triglyceride 05/14/2020 302* <150 mg/dL Final <150 mg/dL, Normal 150-199 mg/dL, Borderline high 200-499 mg/dL, High >499 mg/dL, Very high HDL Cholesterol 05/14/2020 41 >39 mg/dL Final 40-59 mg/dL, Acceptable >59 mg/dL, High: Negative risk factor for coronary heart disease <40 mg/dL, Low: Positive risk factor for coronary heart disease Non HDL Cholesterol 05/14/2020 187* <130 mg/dL Final <130 mg/dL, Optimal 130-159 mg/dL, Near optimal/above optimal 160-189 mg/dL, Borderline high 190-219 mg/dL, High >219 mg/dL, Very high Secondary prevention optimal non HDL Cholesterol levels are recommended to be <100 mg/dL Fasting Time 05/14/2020 12 hrs Final VLDL Cholesterol 05/14/2020 60* <30 mg/dL Final TC:HDL Ratio 05/14/2020 5.56* <5.10 Final LDL Cholesterol 05/14/2020 127* <100 mg/dL Final <100 mg/dL, Optimal 100-129 mg/dL, Near optimal/above optimal 130-159 mg/dL, Borderline high 160-189 mg/dL, High >189 mg/dL, Very high Secondary prevention optimal LDL Cholesterol levels are recommended to be < 70 mg/dL LDL:HDL Ratio 05/14/2020 3.10* <2.54 Final Reference: 1. National Cholesterol Education Program ATP III Guideline At-A-Glance Quick Desk Reference: National Heart, Lung, and Blood [place]. National Institutes of Health. 2001: NIH Publication No. 01-3305. 2. An International Atherosclerosis Society position paper: global recommendations for the management of dyslipidemia: executive summary, Atherosclerosis. 2014: 232(2):410-413. Creatinine, Ur Random (UCRR) 05/14/2020 104.4 46.8 - 314.5 mg/dL Final Albumin, Urine Random 05/14/2020 954.0 mg/L Final Albumin/Creat Ratio 05/14/2020 914* <30 mg/g Final Adult Male and Female Nephrotic Criteria: <30 mg/g is considered normal to mildly increased 30-300 mg/g is considered moderately increased >300 mg/g is considered severely increased KDIGO. (2013). KDIGO 2012 Clinical Practice Guideline for the Evaluation and Management of Chronic Kidney Disease. Official Journal of the International Society of Nephrology, 3(1), 1-150. Procedure Notes: No notes on file New medication(s) prescribed today: Yes: . Discussed new medication dosage, usage, goals of therapy, and side effects. Patient has been apprised of any potential drug interactions to be aware of. Patient expresses understanding. Counseling completed in adopting health behaviors such as avoiding excessive alcohol use, avoid tobacco use, improve nutrition, and engage in physical activities. Copy of written care plan, clinical summary, treatment plan, new medications, goals, and self management requirements were given to patient. Assessment/Plan: ASSESSMENT/PLAN: 1. Hypertension, essential - ICD9: 401.9, ICD10: I10 (primary diagnosis) - suboptimal control - factors affecting control of BP include white coat HTN, being overweight and lack of exercise. - Continue current medication(s) - Encouraged dietary sodium restriction/DASH diet - Recommended regular aerobic exercise. - Recommend home blood pressure monitoring, to bring results in on next visit - Discussed need and benefit for weight loss. - Follow up in 1 month for BP recheck. - Goal of BP <130/80 - ECG B/O WO INTERP (MED OFFICE EKG shows NSR with heart rate of 88 and looks similar to previous EKG, patient informed of results. - LISINOPRIL 10 MG TABLET 2. Chronic nausea - ICD9: 787.02, ICD10: R11.0 - CONSULT TO NEUROLOGY 3. Myalgia - ICD9: 729.1, ICD10: M79.10 - CONSULT TO RHEUM/IMMUN DISEASE 4. Uncontrolled type 2 diabetes mellitus with hyperglycemia (HCC) - ICD9: 250.02, ICD10: E11.65 uncontrolled improved control - Increase pioglitazone (Actos) and metformin (Glucophage) - CONSULT TO OPHTHALMOLOGY - CONSULT TO ENDOCRINOLOGY - PIOGLITAZONE 30 MG TABLET - METFORMIN ER 750 MG TABLET,EXTENDED RELEASE 24 HR Patient declines insulin prescription still 5. Marijuana use - ICD9: 305.20, ICD10: F12.90 Indicates this helps his nausea 6. Drooling - ICD9: 527.7, ICD10: K11.7 - CONSULT TO GASTROENTEROLOGY 7. Chronic vertigo - ICD9: 780.4, ICD10: R42 - CONSULT TO NEUROLOGY - ECG B/O WO INTERP (MED OFFICE) 8. Screening for diabetic retinopathy - ICD9: V80.2, ICD10: Z13.5 - CONSULT TO OPHTHALMOLOGY 9. Glucosuria - ICD9: 791.5, ICD10: R81 Briefly discussed glucosuria 10. Primary osteoarthritis of left shoulder - ICD9: 715.11, ICD10: M19.012 11. Mixed hyperlipidemia - ICD9: 272.2, ICD10: E78.2 - suboptimal control - Encouraged following a low fat, low cholesterol diet. - Discussed the benefits of regular aerobic exercise and weight loss. Belgica Herrera DO Return in about 1 month (around 06/25/2020) for Hypertension, Diabetes. If symptoms persist, worsen, or no improvement, patient is to call 911 and/or go to the nearest ED. documented in this encounter Assessments Diagnosis Routine physical examination- Primary Routine general medical examination at a health care facility Uncontrolled hypertension Unspecified essential hypertension Controlled type 2 diabetes mellitus without complication, without long-term current use of insulin (HCC) Obesity, Class II, BMI 35-39.9 Obesity, unspecified Marijuana use Cannabis abuse, unspecified Chronic bilateral low back pain with sciatica, sciatica laterality unspecified Special screening examination for viral disease Special screening examination for unspecified viral disease Screening for HIV (human immunodeficiency virus) Special screening examination for other specified viral diseases Anxiety with depression Diagnosis Chronic bilateral low back pain with sciatica, sciatica laterality unspecified Diagnosis Diabetes mellitus due to underlying condition, uncontrolled, with hyperglycemia (HCC)- Primary Diagnosis Uncontrolled hypertension- Primary Unspecified essential hypertension Diabetes mellitus due to underlying condition, uncontrolled, with hyperglycemia (HCC) Obesity, Class II, BMI 35-39.9 Obesity, unspecified Chronic bilateral low back pain with sciatica, sciatica laterality unspecified Marijuana use Cannabis abuse, unspecified Microalbuminuria Proteinuria Vitamin D deficiency Unspecified vitamin D deficiency Mixed hyperlipidemia Elevated alkaline phosphatase level Other nonspecific abnormal serum enzyme levels Tinnitus aurium, bilateral Dizziness Dizziness and giddiness Dizziness and giddiness Diagnosis Uncontrolled hypertension- Primary Unspecified essential hypertension Diabetes mellitus due to underlying condition, uncontrolled, with hyperglycemia (HCC) Vitamin D deficiency Unspecified vitamin D deficiency Obesity, Class II, BMI 35-39.9 Obesity, unspecified Mixed hyperlipidemia Encounter for immunization Need for other specified prophylactic vaccination against single bacterial disease Diabetic peripheral neuropathy associated with type 2 diabetes mellitus (HCC) Type II or unspecified type diabetes mellitus with neurological manifestations, not stated as uncontrolled Diagnosis Uncontrolled hypertension- Primary Unspecified essential hypertension Diabetes mellitus due to underlying condition, uncontrolled, with hyperglycemia (HCC) Mixed hyperlipidemia Marijuana use Cannabis abuse, unspecified Chronic bilateral low back pain with sciatica, sciatica laterality unspecified Lumbar radiculopathy Thoracic or lumbosacral neuritis or radiculitis, unspecified Dysuria Fall (on) (from) other stairs and steps, initial encounter Left shoulder pain, unspecified chronicity Diagnosis Chronic bilateral low back pain, unspecified whether sciatica present- Primary Weakness Other malaise and fatigue Decreased mobility and endurance Diagnosis Severe episode of recurrent major depressive disorder, without psychotic features ([facility])- Primary Anxiety disorder, unspecified type Diagnosis Hypertension, essential- Primary Unspecified essential hypertension Chronic nausea Nausea alone Myalgia Mylagia and myositis, unspecified Marijuana use Cannabis abuse, unspecified Drooling Disturbance of salivary secretion Chronic vertigo Screening for diabetic retinopathy Screening for other eye conditions Glucosuria Glycosuria Uncontrolled type 2 diabetes mellitus with hyperglycemia (HCC) Primary osteoarthritis of left shoulder Primary localized osteoarthrosis, shoulder region Mixed hyperlipidemia Summary Purpose Family History No Family History Records FoundNo Family History Records FoundNo Family History Records FoundNo Family History Records FoundNo Family History Records FoundNo Family History Records FoundNo Family History Records Found Advance Directives No Advanced Directives Records Found Date Activated Date Inactivated Comments 07/10/2024 10:30 PM 07/24/2024 8:01 PM Question Answer Comments Full Code Order Discussed With: Patient Date Activated Date Inactivated Comments 10/22/2023 7:25 PM 07/10/2024 3:34 PM Date Activated Date Inactivated Comments 10/05/2023 9:46 AM 10/20/2023 5:25 PM Question Answer Comments Full Code Order Discussed With: Patient Date Activated Date Inactivated Comments 05/27/2023 1:11 PM 06/12/2023 1:29 PM Question Answer Comments Full Code Order Discussed With: Patient Date Activated Date Inactivated Comments 09/14/2022 11:21 PM 09/16/2022 2:52 PM Question Answer Comments Full Code Order Discussed With: Patient Date Activated Date Inactivated Comments 07/10/2024 10:30 PM Date Activated Date Inactivated Comments 10/22/2023 7:25 PM 07/10/2024 3:34 PM Date Activated Date Inactivated Comments 10/05/2023 9:46 AM 10/20/2023 5:25 PM Question Answer Comments Full Code Order Discussed With: Patient Date Activated Date Inactivated Comments 05/27/2023 1:11 PM 06/12/2023 1:29 PM Date Activated Date Inactivated Comments 09/14/2022 11:21 PM 09/16/2022 2:52 PM Date Activated Date Inactivated Comments 03/29/2022 1:23 AM 04/01/2022 7:04 PM Question Answer Comments Full Code Order Discussed With: PatientSurrogate Decision Maker Date Activated Date Inactivated Comments 10/05/2023 9:46 AM 10/20/2023 5:25 PM Date Activated Date Inactivated Comments 05/27/2023 1:11 PM 06/12/2023 1:29 PM Date Activated Date Inactivated Comments 09/14/2022 11:21 PM 09/16/2022 2:52 PM Date Activated Date Inactivated Comments 03/29/2022 1:23 AM 04/01/2022 7:04 PM Question Answer Comments Full Code Order Discussed With: PatientSurrogate Decision Maker Date Activated Date Inactivated Comments 10/05/2023 9:46 AM Documents on File Type Date Recorded Patient Social Media Senior Associate Expl anation Advance Directive(s) 04/13/2021 1:40 AM Advance Directive(s) 04/12/2021 2:50 PM Advance Directive(s) 02/19/2021 5:11 PM Advance Directive(s) 01/08/2021 6:55 PM Advance Directive(s) 11/24/2020 6:01 AM Advance Directive(s) 09/21/2020 10:29 AM Advance Directive(s) 07/24/2020 7:09 AM Documents on File Type Date Recorded Patient Social Media Senior Associate Expl anation Advance Directive(s) 04/13/2021 1:40 AM Advance Directive(s) 04/12/2021 2:50 PM Advance Directive(s) 02/19/2021 5:11 PM Advance Directive(s) 01/08/2021 6:55 PM Advance Directive(s) 11/24/2020 6:01 AM Advance Directive(s) 09/21/2020 10:29 AM Advance Directive(s) 07/24/2020 7:09 AM Documents on File Type Date Recorded Patient Social Media Senior Associate Expl anation Advance Directive(s) 09/02/2021 8:46 PM Advance Directive(s) 04/13/2021 1:40 AM Advance Directive(s) 04/12/2021 2:50 PM Advance Directive(s) 02/19/2021 5:11 PM Advance Directive(s) 01/08/2021 6:55 PM Advance Directive(s) 11/24/2020 6:01 AM Advance Directive(s) 09/21/2020 10:29 AM Advance Directive(s) 07/24/2020 7:09 AM Documents on File Type Date Recorded Patient Social Media Senior Associate Expl anation Advance Directive(s) 09/06/2021 9:37 PM Advance Directive(s) 09/02/2021 8:46 PM Advance Directive(s) 04/13/2021 1:40 AM Advance Directive(s) 04/12/2021 2:50 PM Advance Directive(s) 02/19/2021 5:11 PM Advance Directive(s) 01/08/2021 6:55 PM Advance Directive(s) 11/24/2020 6:01 AM Advance Directive(s) 09/21/2020 10:29 AM Advance Directive(s) 07/24/2020 7:09 AM Documents on File Type Date Recorded Patient Social Media Senior Associate Expl anation Advance Directive(s) 09/06/2021 9:37 PM Advance Directive(s) 09/02/2021 8:46 PM Advance Directive(s) 04/13/2021 1:40 AM Advance Directive(s) 04/12/2021 2:50 PM Advance Directive(s) 02/19/2021 5:11 PM Advance Directive(s) 01/08/2021 6:55 PM Advance Directive(s) 11/24/2020 6:01 AM Advance Directive(s) 09/21/2020 10:29 AM Advance Directive(s) 07/24/2020 7:09 AM Latest Code Status on File Code Status Date Activated Date Inactivated Comments Full Code 03/29/2022 1:23 AM 04/01/2022 7:04 PM Full Code Order Discussed With: Patient Surrogate Decision Maker Latest Code Status on File Code Status Date Activated Date Inactivated Comments Full Code 03/29/2022 1:23 AM 04/01/2022 7:04 PM Latest Code Status on File Code Status Date Activated Date Inactivated Comments Full Code 09/14/2022 11:21 PM 09/16/2022 2:52 PM Full Code Order Discussed With: Patient Full Code 03/29/2022 1:23 AM 04/01/2022 7:04 PM Latest Code Status on File Code Status Date Activated Date Inactivated Comments Full Code 09/14/2022 11:21 PM 09/16/2022 2:52 PM Full Code 03/29/2022 1:23 AM 04/01/2022 7:04 PM Latest Code Status on File Code Status Date Activated Date Inactivated Comments Full Code 09/14/2022 11:21 PM 09/16/2022 2:52 PM Question Answer Comments Full Code Order Discussed With: Patient Code Status History Code Status Date Activated Date Inactivated Comments Full Code 03/29/2022 1:23 AM 04/01/2022 7:04 PM Question Answer Comments Full Code Order Discussed With: Patient Surrogate Decision Maker Latest Code Status on File Code Status Date Activated Date Inactivated Comments Full Code 09/14/2022 11:21 PM 09/16/2022 2:52 PM Question Answer Comments Full Code Order Discussed With: Patient Code Status History Code Status Date Activated Date Inactivated Comments Full Code 03/29/2022 1:23 AM 04/01/2022 7:04 PM Question Answer Comments Full Code Order Discussed With: Patient Surrogate Decision Maker Latest Code Status on File Code Status Date Activated Date Inactivated Comments Full Code 09/14/2022 11:21 PM 09/16/2022 2:52 PM Question Answer Comments Full Code Order Discussed With: Patient Code Status History Code Status Date Activated Date Inactivated Comments Full Code 03/29/2022 1:23 AM 04/01/2022 7:04 PM Question Answer Comments Full Code Order Discussed With: Patient Surrogate Decision Maker Latest Code Status on File Code Status Date Activated Date Inactivated Comments Full Code 09/14/2022 11:21 PM 09/16/2022 2:52 PM Question Answer Comments Full Code Order Discussed With: Patient Code Status History Code Status Date Activated Date Inactivated Comments Full Code 03/29/2022 1:23 AM 04/01/2022 7:04 PM Question Answer Comments Full Code Order Discussed With: Patient Surrogate Decision Maker Date Activated Date Inactivated Comments 05/27/2023 1:11 PM 06/12/2023 1:29 PM Date Activated Date Inactivated Comments 09/14/2022 11:21 PM 09/16/2022 2:52 PM Date Activated Date Inactivated Comments 03/29/2022 1:23 AM 04/01/2022 7:04 PM Question Answer Comments Full Code Order Discussed With: PatientSurrogate Decision Maker Date Activated Date Inactivated Comments 10/22/2023 7:25 PM Date Activated Date Inactivated Comments 10/22/2023 7:25 PM Date Activated Date Inactivated Comments 10/05/2023 9:46 AM 10/20/2023 5:25 PM Question Answer Comments Full Code Order Discussed With: Patient Date Activated Date Inactivated Comments 05/27/2023 1:11 PM 06/12/2023 1:29 PM Question Answer Comments Full Code Order Discussed With: Patient Date Activated Date Inactivated Comments 09/14/2022 11:21 PM 09/16/2022 2:52 PM Question Answer Comments Full Code Order Discussed With: Patient Date Activated Date Inactivated Comments 03/29/2022 1:23 AM 04/01/2022 7:04 PM Question Answer Comments Full Code Order Discussed With: PatientSurrogate Decision Maker Medications Administered Section Inactive Administered Medications - up to 3 most recent administrations Medication Order MAR Action Action Date Dose Rate Site fluorescein-benoxinate 0.25-0.4 % 1 Drop (FLURESS) 1 Drop, BOTH EYES, DIRECTED, Starting on Mon11/05/21 at 1300, Until 11/06/21 at 0059, Administer for applanation tonometry. In the event of a Fluress shortage, administer [place]-Fluor 1 drop into both eyes as directed for applanation tonometry, [facility] MED ORD[facility] Given 11/05/2021 1:00 PM EDT 1 Drop PHENYLephrine 2.5 % 1 Drop (AK-DILATE, MARILYN-SYNEPHRINE) 1 Drop, BOTH EYES, DIRECTED, Starting on Mon11/05/21 at 1300, Until 11/06/21 at 0059, Administer for dilation PROTECT FROM LIGHT, [facility] MED ORD[facility] Given 11/05/2021 1:00 PM EDT 1 Drop tropicamide 1 % 1 Drop (MYDRIACYL) 1 Drop, BOTH EYES, DIRECTED, Starting on Mon11/05/21 at 1300, Until 11/06/21 at 0059, Administer for dilation, [facility] MED ORDERS Given 11/05/2021 1:00 PM EDT 1 Drop Inactive Administered Medications - up to 3 most recent administrations Medication Order MAR Action Action Date Dose Rate Site lidocaine 20 mg/mL (2 %) injection (XYLOCAINE) X (OR/PROCEDURE) PRN, Starting on Mon08/30/22 at 0737, Until Mon08/31/22 at 0305, Intraprocedure Given 08/30/2022 7:37 AM EDT 10 mL Hip , Left Active Administered Medications - up to 3 most recent administrations Medication Order MAR Action Action Date Dose Rate Site fluorescein-benoxinate 0.25-0.4 % 1 Drop (FLURESS) 1 Drop, BOTH EYES, DIRECTED, Starting on Mon09/16/22 at 1400, Until 09/17/22 at 0159, Administer for applanation tonometry. In the event of a Fluress shortage, administer [place]-Fluor 1 drop into both eyes as directed for applanation tonometry, [facility] MED ORDERS Given 09/16/2022 2:00 PM EDT 1 Drop Inactive Administered Medications - up to 3 most recent administrations Medication Order MAR Action Action Date Dose Rate Site perflutren lipid microspheres 1.3 mL in NaCl (PF) 0.9% 10 mL injection (DEFINArgyle Security) INTRAVENOUS, DIRECTED NEEDED, 1 dose, Starting on [place] 10/13/22 at 1004, Until [place] 12/01/22 at 1000, Per Protocol - for use during ECHO procedure only, If no IV access, insert saline lock prior to administering contrast. Discontinue saline lock post exam. If patient has central line or IVAD, may access for administration according to line specific nursing protocol. Once exam is complete, flush line and de-access per line specific nursing protocol.Dilute 1.3 ml of Definity with 8.7 ml of preservative-free saline. Given 12/01/2022 10:00 AM EDT 1.3 mL Arm, Left Health Concerns Infection Onset Date Last Indicated Resolved Time COVID-19 Rule-Out 01/17/2022 01/17/2022 01/17/2022 9:53 PM EDT Infection Onset Date Last Indicated Resolved Time COVID-19 Rule-Out 09/14/2022 09/14/2022 09/14/2022 9:06 PM EDT Chief Complaint and Reason for Visit Chief Complaint Admit Date LABWORK August 28, 2024 6:40a m Additional Source Comments Source Comments (unrecognize d section and content) In the event this informatio n is protected by the Federal Confidentiality of Alcohol and Drug Abuse Patient Records regulations: The Federal rules restrict any use of the information to criminally investigate or prosecute any alcohol or drug abuse patient.[facility] the event this information is protected by the Federal Confidentiality of Alcohol and Drug Abuse Patient Records regulations: The Federal rules restrict any use of the information to criminally investigate or prosecute any alcohol or drug abuse patient.[facility]In the event this information is protected by the Federal Confidentiality of Alcohol and Drug Abuse Patient Records regulations: The Federal rules restrict any use of the information to criminally investigate or prosecute any alcohol or drug abuse patient.[facility]In the event this information is protected by the Federal Confidentiality of Alcohol and Drug Abuse Patient Records regulations: The Federal rules restrict any use of the information to criminally investigate or prosecute any alcohol or drug abuse patient.[facility]In the event this information is protected by the Federal Confidentiality of Alcohol and Drug Abuse Patient Records regulations: The Federal rules restrict any use of the information to criminally investigate or prosecute any alcohol or drug abuse patient.[facility]In the event this information is protected by the Federal Confidentiality of Alcohol and Drug Abuse Patient Records regulations: The Federal rules restrict any use of the information to criminally investigate or prosecute any alcohol or drug abuse patient.[facility]In the event this information is protected by the Federal Confidentiality of Alcohol and Drug Abuse Patient Records regulations: The Federal rules restrict any use of the information to criminally investigate or prosecute any alcohol or drug abuse patient.[facility]In the event this information is protected by the Federal Confidentiality of Alcohol and Drug Abuse Patient Records regulations: The Federal rules restrict any use of the information to criminally investigate or prosecute any alcohol or drug abuse patient.[facility]In the event this information is protected by the Federal Confidentiality of Alcohol and Drug Abuse Patient Records regulations: The Federal rules restrict any use of the information to criminally investigate or prosecute any alcohol or drug abuse patient.[facility]In the event this information is protected by the Federal Confidentiality of Alcohol and Drug Abuse Patient Records regulations: The Federal rules restrict any use of the information to criminally investigate or prosecute any alcohol or drug abuse patient.[facility]In the event this information is protected by the Federal Confidentiality of Alcohol and Drug Abuse Patient Records regulations: The Federal rules restrict any use of the information to criminally investigate or prosecute any alcohol or drug abuse patient.[facility]In the event this information is protected by the Federal Confidentiality of Alcohol and Drug Abuse Patient Records regulations: The Federal rules restrict any use of the information to criminally investigate or prosecute any alcohol or drug abuse patient.[facility]In the event this information is protected by the Federal Confidentiality of Alcohol and Drug Abuse Patient Records regulations: The Federal rules restrict any use of the information to criminally investigate or prosecute any alcohol or drug abuse patient.[facility]In the event this information is protected by the Federal Confidentiality of Alcohol and Drug Abuse Patient Records regulations: The Federal rules restrict any use of the information to criminally investigate or prosecute any alcohol or drug abuse patient.[facility]In the event this information is protected by the Federal Confidentiality of Alcohol and Drug Abuse Patient Records regulations: The Federal rules restrict any use of the information to criminally investigate or prosecute any alcohol or drug abuse patient.[facility]In the event this information is protected by the Federal Confidentiality of Alcohol and Drug Abuse Patient Records regulations: The Federal rules restrict any use of the information to criminally investigate or prosecute any alcohol or drug abuse patient.[facility]In the event this information is protected by the Federal Confidentiality of Alcohol and Drug Abuse Patient Records regulations: The Federal rules restrict any use of the information to criminally investigate or prosecute any alcohol or drug abuse patient.[facility]In the event this information is protected by the Federal Confidentiality of Alcohol and Drug Abuse Patient Records regulations: The Federal rules restrict any use of the information to criminally investigate or prosecute any alcohol or drug abuse patient.[facility]In the event this information is protected by the Federal Confidentiality of Alcohol and Drug Abuse Patient Records regulations: The Federal rules restrict any use of the information to criminally investigate or prosecute any alcohol or drug abuse patient.[facility]In the event this information is protected by the Federal Confidentiality of Alcohol and Drug Abuse Patient Records regulations: The Federal rules restrict any use of the information to criminally investigate or prosecute any alcohol or drug abuse patient.[facility]In the event this information is protected by the Federal Confidentiality of Alcohol and Drug Abuse Patient Records regulations: The Federal rules restrict any use of the information to criminally investigate or prosecute any alcohol or drug abuse patient.[facility]In the event this information is protected by the Federal Confidentiality of Alcohol and Drug Abuse Patient Records regulations: The Federal rules restrict any use of the information to criminally investigate or prosecute any alcohol or drug abuse patient.[facility]In the event this information is protected by the Federal Confidentiality of Alcohol and Drug Abuse Patient Records regulations: The Federal rules restrict any use of the information to criminally investigate or prosecute any alcohol or drug abuse patient.[facility]In the event this information is protected by the Federal Confidentiality of Alcohol and Drug Abuse Patient Records regulations: The Federal rules restrict any use of the information to criminally investigate or prosecute any alcohol or drug abuse patient.[facility]In the event this information is protected by the Federal Confidentiality of Alcohol and Drug Abuse Patient Records regulations: The Federal rules restrict any use of the information to criminally investigate or prosecute any alcohol or drug abuse patient.[facility]In the event this information is protected by the Federal Confidentiality of Alcohol and Drug Abuse Patient Records regulations: The Federal rules restrict any use of the information to criminally investigate or prosecute any alcohol or drug abuse patient.[facility]In the event this information is protected by the Federal Confidentiality of Alcohol and Drug Abuse Patient Records regulations: The Federal rules restrict any use of the information to criminally investigate or prosecute any alcohol or drug abuse patient.[facility]In the event this information is protected by the Federal Confidentiality of Alcohol and Drug Abuse Patient Records regulations: The Federal rules restrict any use of the information to criminally investigate or prosecute any alcohol or drug abuse patient.[facility]In the event this information is protected by the Federal Confidentiality of Alcohol and Drug Abuse Patient Records regulations: The Federal rules restrict any use of the information to criminally investigate or prosecute any alcohol or drug abuse patient.[facility]In the event this information is protected by the Federal Confidentiality of Alcohol and Drug Abuse Patient Records regulations: The Federal rules restrict any use of the information to criminally investigate or prosecute any alcohol or drug abuse patient.[facility]In the event this information is protected by the Federal Confidentiality of Alcohol and Drug Abuse Patient Records regulations: The Federal rules restrict any use of the information to criminally investigate or prosecute any alcohol or drug abuse patient.[facility]In the event this information is protected by the Federal Confidentiality of Alcohol and Drug Abuse Patient Records regulations: The Federal rules restrict any use of the information to criminally investigate or prosecute any alcohol or drug abuse patient.[facility]In the event this information is protected by the Federal Confidentiality of Alcohol and Drug Abuse Patient Records regulations: The Federal rules restrict any use of the information to criminally investigate or prosecute any alcohol or drug abuse patient.[facility] HospitalIn the event this information is protected by the Federal Confidentiality of Alcohol and Drug Abuse Patient Records regulations: The Federal rules restrict any use of the information to criminally investigate or prosecute any alcohol or drug abuse patient.[facility] HospitalIn the event this information is protected by the Federal Confidentiality of Alcohol and Drug Abuse Patient Records regulations: The Federal rules restrict any use of the information to criminally investigate or prosecute any alcohol or drug abuse patient.[facility]In the event this information is protected by the Federal Confidentiality of Alcohol and Drug Abuse Patient Records regulations: The Federal rules restrict any use of the information to criminally investigate or prosecute any alcohol or drug abuse patient.[facility]In the event this information is protected by the Federal Confidentiality of Alcohol and Drug Abuse Patient Records regulations: The Federal rules restrict any use of the information to criminally investigate or prosecute any alcohol or drug abuse patient.[facility] HospitalIn the event this information is protected by the Federal Confidentiality of Alcohol and Drug Abuse Patient Records regulations: The Federal rules restrict any use of the information to criminally investigate or prosecute any alcohol or drug abuse patient.[facility] HospitalIn the event this information is protected by the Federal Confidentiality of Alcohol and Drug Abuse Patient Records regulations: The Federal rules restrict any use of the information to criminally investigate or prosecute any alcohol or drug abuse patient.[facility] HospitalIn the event this information is protected by the Federal Confidentiality of Alcohol and Drug Abuse Patient Records regulations: The Federal rules restrict any use of the information to criminally investigate or prosecute any alcohol or drug abuse patient.[facility] HospitalIn the event this information is protected by the Federal Confidentiality of Alcohol and Drug Abuse Patient Records regulations: The Federal rules restrict any use of the information to criminally investigate or prosecute any alcohol or drug abuse patient.[facility] HospitalIn the event this information is protected by the Federal Confidentiality of Alcohol and Drug Abuse Patient Records regulations: The Federal rules restrict any use of the information to criminally investigate or prosecute any alcohol or drug abuse patient.[facility] HospitalIn the event this information is protected by the Federal Confidentiality of Alcohol and Drug Abuse Patient Records regulations: The Federal rules restrict any use of the information to criminally investigate or prosecute any alcohol or drug abuse patient.[facility] HospitalIn the event this information is protected by the Federal Confidentiality of Alcohol and Drug Abuse Patient Records regulations: The Federal rules restrict any use of the information to criminally investigate or prosecute any alcohol or drug abuse patient.[facility] HospitalIn the event this information is protected by the Federal Confidentiality of Alcohol and Drug Abuse Patient Records regulations: The Federal rules restrict any use of the information to criminally investigate or prosecute any alcohol or drug abuse patient.[facility] HospitalIn the event this information is protected by the Federal Confidentiality of Alcohol and Drug Abuse Patient Records regulations: The Federal rules restrict any use of the information to criminally investigate or prosecute any alcohol or drug abuse patient.[facility] HospitalIn the event this information is protected by the Federal Confidentiality of Alcohol and Drug Abuse Patient Records regulations: The Federal rules restrict any use of the information to criminally investigate or prosecute any alcohol or drug abuse patient.[facility] HospitalIn the event this information is protected by the Federal Confidentiality of Alcohol and Drug Abuse Patient Records regulations: The Federal rules restrict any use of the information to criminally investigate or prosecute any alcohol or drug abuse patient.[facility] HospitalIn the event this information is protected by the Federal Confidentiality of Alcohol and Drug Abuse Patient Records regulations: The Federal rules restrict any use of the information to criminally investigate or prosecute any alcohol or drug abuse patient.[facility] HospitalIn the event this information is protected by the Federal Confidentiality of Alcohol and Drug Abuse Patient Records regulations: The Federal rules restrict any use of the information to criminally investigate or prosecute any alcohol or drug abuse patient.[facility] HospitalIn the event this information is protected by the Federal Confidentiality of Alcohol and Drug Abuse Patient Records regulations: The Federal rules restrict any use of the information to criminally investigate or prosecute any alcohol or drug abuse patient.[facility] HospitalIn the event this information is protected by the Federal Confidentiality of Alcohol and Drug Abuse Patient Records regulations: The Federal rules restrict any use of the information to criminally investigate or prosecute any alcohol or drug abuse patient.[facility] HospitalIn the event this information is protected by the Federal Confidentiality of Alcohol and Drug Abuse Patient Records regulations: The Federal rules restrict any use of the information to criminally investigate or prosecute any alcohol or drug abuse patient.[facility] HospitalIn the event this information is protected by the Federal Confidentiality of Alcohol and Drug Abuse Patient Records regulations: The Federal rules restrict any use of the information to criminally investigate or prosecute any alcohol or drug abuse patient.[facility] HospitalIn the event this information is protected by the Federal Confidentiality of Alcohol and Drug Abuse Patient Records regulations: The Federal rules restrict any use of the information to criminally investigate or prosecute any alcohol or drug abuse patient.[facility]In the event this information is protected by the Federal Confidentiality of Alcohol and Drug Abuse Patient Records regulations: The Federal rules restrict any use of the information to criminally investigate or prosecute any alcohol or drug abuse patient.[facility]In the event this information is protected by the Federal Confidentiality of Alcohol and Drug Abuse Patient Records regulations: The Federal rules restrict any use of the information to criminally investigate or prosecute any alcohol or drug abuse patient.[facility]In the event this information is protected by the Federal Confidentiality of Alcohol and Drug Abuse Patient Records regulations: The Federal rules restrict any use of the information to criminally investigate or prosecute any alcohol or drug abuse patient.[facility] HospitalIn the event this information is protected by the Federal Confidentiality of Alcohol and Drug Abuse Patient Records regulations: The Federal rules restrict any use of the information to criminally investigate or prosecute any alcohol or drug abuse patient.[facility]In the event this information is protected by the Federal Confidentiality of Alcohol and Drug Abuse Patient Records regulations: The Federal rules restrict any use of the information to criminally investigate or prosecute any alcohol or drug abuse patient.[facility]In the event this information is protected by the Federal Confidentiality of Alcohol and Drug Abuse Patient Records regulations: The Federal rules restrict any use of the information to criminally investigate or prosecute any alcohol or drug abuse patient.[facility]In the event this information is protected by the Federal Confidentiality of Alcohol and Drug Abuse Patient Records regulations: The Federal rules restrict any use of the information to criminally investigate or prosecute any alcohol or drug abuse patient.[facility]In the event this information is protected by the Federal Confidentiality of Alcohol and Drug Abuse Patient Records regulations: The Federal rules restrict any use of the information to criminally investigate or prosecute any alcohol or drug abuse patient.[facility]In the event this information is protected by the Federal Confidentiality of Alcohol and Drug Abuse Patient Records regulations: The Federal rules restrict any use of the information to criminally investigate or prosecute any alcohol or drug abuse patient.[facility]In the event this information is protected by the Federal Confidentiality of Alcohol and Drug Abuse Patient Records regulations: The Federal rules restrict any use of the information to criminally investigate or prosecute any alcohol or drug abuse patient.[facility]In the event this information is protected by the Federal Confidentiality of Alcohol and Drug Abuse Patient Records regulations: The Federal rules restrict any use of the information to criminally investigate or prosecute any alcohol or drug abuse patient.[facility]In the event this information is protected by the Federal Confidentiality of Alcohol and Drug Abuse Patient Records regulations: The Federal rules restrict any use of the information to criminally investigate or prosecute any alcohol or drug abuse patient.[facility]In the event this information is protected by the Federal Confidentiality of Alcohol and Drug Abuse Patient Records regulations: The Federal rules restrict any use of the information to criminally investigate or prosecute any alcohol or drug abuse patient.[facility]In the event this information is protected by the Federal Confidentiality of Alcohol and Drug Abuse Patient Records regulations: The Federal rules restrict any use of the information to criminally investigate or prosecute any alcohol or drug abuse patient.[facility]In the event this information is protected by the Federal Confidentiality of Alcohol and Drug Abuse Patient Records regulations: The Federal rules restrict any use of the information to criminally investigate or prosecute any alcohol or drug abuse patient.[facility]In the event this information is protected by the Federal Confidentiality of Alcohol and Drug Abuse Patient Records regulations: The Federal rules restrict any use of the information to criminally investigate or prosecute any alcohol or drug abuse patient.[facility]In the event this information is protected by the Federal Confidentiality of Alcohol and Drug Abuse Patient Records regulations: The Federal rules restrict any use of the information to criminally investigate or prosecute any alcohol or drug abuse patient.[facility]In the event this information is protected by the Federal Confidentiality of Alcohol and Drug Abuse Patient Records regulations: The Federal rules restrict any use of the information to criminally investigate or prosecute any alcohol or drug abuse patient.[facility]In the event this information is protected by the Federal Confidentiality of Alcohol and Drug Abuse Patient Records regulations: The Federal rules restrict any use of the information to criminally investigate or prosecute any alcohol or drug abuse patient.[facility]In the event this information is protected by the Federal Confidentiality of Alcohol and Drug Abuse Patient Records regulations: The Federal rules restrict any use of the information to criminally investigate or prosecute any alcohol or drug abuse patient.[facility]In the event this information is protected by the Federal Confidentiality of Alcohol and Drug Abuse Patient Records regulations: The Federal rules restrict any use of the information to criminally investigate or prosecute any alcohol or drug abuse patient.[facility]In the event this information is protected by the Federal Confidentiality of Alcohol and Drug Abuse Patient Records regulations: The Federal rules restrict any use of the information to criminally investigate or prosecute any alcohol or drug abuse patient.[facility]In the event this information is protected by the Federal Confidentiality of Alcohol and Drug Abuse Patient Records regulations: The Federal rules restrict any use of the information to criminally investigate or prosecute any alcohol or drug abuse patient.[facility]In the event this information is protected by the Federal Confidentiality of Alcohol and Drug Abuse Patient Records regulations: The Federal rules restrict any use of the information to criminally investigate or prosecute any alcohol or drug abuse patient.[facility]In the event this information is protected by the Federal Confidentiality of Alcohol and Drug Abuse Patient Records regulations: The Federal rules restrict any use of the information to criminally investigate or prosecute any alcohol or drug abuse patient.[facility]In the event this information is protected by the Federal Confidentiality of Alcohol and Drug Abuse Patient Records regulations: The Federal rules restrict any use of the information to criminally investigate or prosecute any alcohol or drug abuse patient.[facility] HospitalIn the event this information is protected by the Federal Confidentiality of Alcohol and Drug Abuse Patient Records regulations: The Federal rules restrict any use of the information to criminally investigate or prosecute any alcohol or drug abuse patient.[facility] HospitalIn the event this information is protected by the Federal Confidentiality of Alcohol and Drug Abuse Patient Records regulations: The Federal rules restrict any use of the information to criminally investigate or prosecute any alcohol or drug abuse patient.[facility] HospitalIn the event this information is protected by the Federal Confidentiality of Alcohol and Drug Abuse Patient Records regulations: The Federal rules restrict any use of the information to criminally investigate or prosecute any alcohol or drug abuse patient.[facility] HospitalIn the event this information is protected by the Federal Confidentiality of Alcohol and Drug Abuse Patient Records regulations: The Federal rules restrict any use of the information to criminally investigate or prosecute any alcohol or drug abuse patient.[facility] HospitalIn the event this information is protected by the Federal Confidentiality of Alcohol and Drug Abuse Patient Records regulations: The Federal rules restrict any use of the information to criminally investigate or prosecute any alcohol or drug abuse patient.[facility] HospitalIn the event this information is protected by the Federal Confidentiality of Alcohol and Drug Abuse Patient Records regulations: The Federal rules restrict any use of the information to criminally investigate or prosecute any alcohol or drug abuse patient.[facility] HospitalIn the event this information is protected by the Federal Confidentiality of Alcohol and Drug Abuse Patient Records regulations: The Federal rules restrict any use of the information to criminally investigate or prosecute any alcohol or drug abuse patient.[facility] HospitalIn the event this information is protected by the Federal Confidentiality of Alcohol and Drug Abuse Patient Records regulations: The Federal rules restrict any use of the information to criminally investigate or prosecute any alcohol or drug abuse patient.[facility] HospitalIn the event this information is protected by the Federal Confidentiality of Alcohol and Drug Abuse Patient Records regulations: The Federal rules restrict any use of the information to criminally investigate or prosecute any alcohol or drug abuse patient.[facility] HospitalIn the event this information is protected by the Federal Confidentiality of Alcohol and Drug Abuse Patient Records regulations: The Federal rules restrict any use of the information to criminally investigate or prosecute any alcohol or drug abuse patient.[facility] HospitalIn the event this information is protected by the Federal Confidentiality of Alcohol and Drug Abuse Patient Records regulations: The Federal rules restrict any use of the information to criminally investigate or prosecute any alcohol or drug abuse patient.[facility] HospitalIn the event this information is protected by the Federal Confidentiality of Alcohol and Drug Abuse Patient Records regulations: The Federal rules restrict any use of the information to criminally investigate or prosecute any alcohol or drug abuse patient.[facility] HospitalIn the event this information is protected by the Federal Confidentiality of Alcohol and Drug Abuse Patient Records regulations: The Federal rules restrict any use of the information to criminally investigate or prosecute any alcohol or drug abuse patient.[facility] HospitalIn the event this information is protected by the Federal Confidentiality of Alcohol and Drug Abuse Patient Records regulations: The Federal rules restrict any use of the information to criminally investigate or prosecute any alcohol or drug abuse patient.[facility] HospitalIn the event this information is protected by the Federal Confidentiality of Alcohol and Drug Abuse Patient Records regulations: The Federal rules restrict any use of the information to criminally investigate or prosecute any alcohol or drug abuse patient.[facility] HospitalIn the event this information is protected by the Federal Confidentiality of Alcohol and Drug Abuse Patient Records regulations: The Federal rules restrict any use of the information to criminally investigate or prosecute any alcohol or drug abuse patient.[facility] HospitalIn the event this information is protected by the Federal Confidentiality of Alcohol and Drug Abuse Patient Records regulations: The Federal rules restrict any use of the information to criminally investigate or prosecute any alcohol or drug abuse patient.[facility] HospitalIn the event this information is protected by the Federal Confidentiality of Alcohol and Drug Abuse Patient Records regulations: The Federal rules restrict any use of the information to criminally investigate or prosecute any alcohol or drug abuse patient.[facility] HospitalIn the event this information is protected by the Federal Confidentiality of Alcohol and Drug Abuse Patient Records regulations: The Federal rules restrict any use of the information to criminally investigate or prosecute any alcohol or drug abuse patient.[facility] HospitalIn the event this information is protected by the Federal Confidentiality of Alcohol and Drug Abuse Patient Records regulations: The Federal rules restrict any use of the information to criminally investigate or prosecute any alcohol or drug abuse patient.[facility] HospitalIn the event this information is protected by the Federal Confidentiality of Alcohol and Drug Abuse Patient Records regulations: The Federal rules restrict any use of the information to criminally investigate or prosecute any alcohol or drug abuse patient.[facility] HospitalIn the event this information is protected by the Federal Confidentiality of Alcohol and Drug Abuse Patient Records regulations: The Federal rules restrict any use of the information to criminally investigate or prosecute any alcohol or drug abuse patient.[facility] HospitalIn the event this information is protected by the Federal Confidentiality of Alcohol and Drug Abuse Patient Records regulations: The Federal rules restrict any use of the information to criminally investigate or prosecute any alcohol or drug abuse patient.[facility] HospitalIn the event this information is protected by the Federal Confidentiality of Alcohol and Drug Abuse Patient Records regulations: The Federal rules restrict any use of the information to criminally investigate or prosecute any alcohol or drug abuse patient.[facility] HospitalIn the event this information is protected by the Federal Confidentiality of Alcohol and Drug Abuse Patient Records regulations: The Federal rules restrict any use of the information to criminally investigate or prosecute any alcohol or drug abuse patient.[facility] HospitalIn the event this information is protected by the Federal Confidentiality of Alcohol and Drug Abuse Patient Records regulations: The Federal rules restrict any use of the information to criminally investigate or prosecute any alcohol or drug abuse patient.[facility] HospitalIn the event this information is protected by the Federal Confidentiality of Alcohol and Drug Abuse Patient Records regulations: The Federal rules restrict any use of the information to criminally investigate or prosecute any alcohol or drug abuse patient.[facility] HospitalIn the event this information is protected by the Federal Confidentiality of Alcohol and Drug Abuse Patient Records regulations: The Federal rules restrict any use of the information to criminally investigate or prosecute any alcohol or drug abuse patient.[facility] HospitalIn the event this information is protected by the Federal Confidentiality of Alcohol and Drug Abuse Patient Records regulations: The Federal rules restrict any use of the information to criminally investigate or prosecute any alcohol or drug abuse patient.[facility] HospitalIn the event this information is protected by the Federal Confidentiality of Alcohol and Drug Abuse Patient Records regulations: The Federal rules restrict any use of the information to criminally investigate or prosecute any alcohol or drug abuse patient.[facility] HospitalIn the event this information is protected by the Federal Confidentiality of Alcohol and Drug Abuse Patient Records regulations: The Federal rules restrict any use of the information to criminally investigate or prosecute any alcohol or drug abuse patient.[facility] HospitalIn the event this information is protected by the Federal Confidentiality of Alcohol and Drug Abuse Patient Records regulations: The Federal rules restrict any use of the information to criminally investigate or prosecute any alcohol or drug abuse patient.[facility] HospitalIn the event this information is protected by the Federal Confidentiality of Alcohol and Drug Abuse Patient Records regulations: The Federal rules restrict any use of the information to criminally investigate or prosecute any alcohol or drug abuse patient.[facility] HospitalIn the event this information is protected by the Federal Confidentiality of Alcohol and Drug Abuse Patient Records regulations: The Federal rules restrict any use of the information to criminally investigate or prosecute any alcohol or drug abuse patient.[facility] HospitalIn the event this information is protected by the Federal Confidentiality of Alcohol and Drug Abuse Patient Records regulations: The Federal rules restrict any use of the information to criminally investigate or prosecute any alcohol or drug abuse patient.[facility] HospitalIn the event this information is protected by the Federal Confidentiality of Alcohol and Drug Abuse Patient Records regulations: The Federal rules restrict any use of the information to criminally investigate or prosecute any alcohol or drug abuse patient.[facility] HospitalIn the event this information is protected by the Federal Confidentiality of Alcohol and Drug Abuse Patient Records regulations: The Federal rules restrict any use of the information to criminally investigate or prosecute any alcohol or drug abuse patient.[facility] HospitalIn the event this information is protected by the Federal Confidentiality of Alcohol and Drug Abuse Patient Records regulations: The Federal rules restrict any use of the information to criminally investigate or prosecute any alcohol or drug abuse patient.[facility] HospitalIn the event this information is protected by the Federal Confidentiality of Alcohol and Drug Abuse Patient Records regulations: The Federal rules restrict any use of the information to criminally investigate or prosecute any alcohol or drug abuse patient.[facility] HospitalIn the event this information is protected by the Federal Confidentiality of Alcohol and Drug Abuse Patient Records regulations: The Federal rules restrict any use of the information to criminally investigate or prosecute any alcohol or drug abuse patient.[facility] HospitalIn the event this information is protected by the Federal Confidentiality of Alcohol and Drug Abuse Patient Records regulations: The Federal rules restrict any use of the information to criminally investigate or prosecute any alcohol or drug abuse patient.[facility] HospitalIn the event this information is protected by the Federal Confidentiality of Alcohol and Drug Abuse Patient Records regulations: The Federal rules restrict any use of the information to criminally investigate or prosecute any alcohol or drug abuse patient.[facility] HospitalIn the event this information is protected by the Federal Confidentiality of Alcohol and Drug Abuse Patient Records regulations: The Federal rules restrict any use of the information to criminally investigate or prosecute any alcohol or drug abuse patient.[facility] HospitalIn the event this information is protected by the Federal Confidentiality of Alcohol and Drug Abuse Patient Records regulations: The Federal rules restrict any use of the information to criminally investigate or prosecute any alcohol or drug abuse patient.[facility] HospitalIn the event this information is protected by the Federal Confidentiality of Alcohol and Drug Abuse Patient Records regulations: The Federal rules restrict any use of the information to criminally investigate or prosecute any alcohol or drug abuse patient.[facility] HospitalIn the event this information is protected by the Federal Confidentiality of Alcohol and Drug Abuse Patient Records regulations: The Federal rules restrict any use of the information to criminally investigate or prosecute any alcohol or drug abuse patient.[facility] HospitalIn the event this information is protected by the Federal Confidentiality of Alcohol and Drug Abuse Patient Records regulations: The Federal rules restrict any use of the information to criminally investigate or prosecute any alcohol or drug abuse patient.[facility] HospitalIn the event this information is protected by the Federal Confidentiality of Alcohol and Drug Abuse Patient Records regulations: The Federal rules restrict any use of the information to criminally investigate or prosecute any alcohol or drug abuse patient.[facility] HospitalIn the event this information is protected by the Federal Confidentiality of Alcohol and Drug Abuse Patient Records regulations: The Federal rules restrict any use of the information to criminally investigate or prosecute any alcohol or drug abuse patient.[facility] HospitalIn the event this information is protected by the Federal Confidentiality of Alcohol and Drug Abuse Patient Records regulations: The Federal rules restrict any use of the information to criminally investigate or prosecute any alcohol or drug abuse patient.[facility] HospitalIn the event this information is protected by the Federal Confidentiality of Alcohol and Drug Abuse Patient Records regulations: The Federal rules restrict any use of the information to criminally investigate or prosecute any alcohol or drug abuse patient.[facility] HospitalIn the event this information is protected by the Federal Confidentiality of Alcohol and Drug Abuse Patient Records regulations: The Federal rules restrict any use of the information to criminally investigate or prosecute any alcohol or drug abuse patient.[facility] HospitalIn the event this information is protected by the Federal Confidentiality of Alcohol and Drug Abuse Patient Records regulations: The Federal rules restrict any use of the information to criminally investigate or prosecute any alcohol or drug abuse patient.[facility] HospitalIn the event this information is protected by the Federal Confidentiality of Alcohol and Drug Abuse Patient Records regulations: The Federal rules restrict any use of the information to criminally investigate or prosecute any alcohol or drug abuse patient.[facility] HospitalIn the event this information is protected by the Federal Confidentiality of Alcohol and Drug Abuse Patient Records regulations: The Federal rules restrict any use of the information to criminally investigate or prosecute any alcohol or drug abuse patient.[facility] HospitalIn the event this information is protected by the Federal Confidentiality of Alcohol and Drug Abuse Patient Records regulations: The Federal rules restrict any use of the information to criminally investigate or prosecute any alcohol or drug abuse patient.[facility] HospitalIn the event this information is protected by the Federal Confidentiality of Alcohol and Drug Abuse Patient Records regulations: The Federal rules restrict any use of the information to criminally investigate or prosecute any alcohol or drug abuse patient.[facility] HospitalIn the event this information is protected by the Federal Confidentiality of Alcohol and Drug Abuse Patient Records regulations: The Federal rules restrict any use of the information to criminally investigate or prosecute any alcohol or drug abuse patient.[facility] HospitalIn the event this information is protected by the Federal Confidentiality of Alcohol and Drug Abuse Patient Records regulations: The Federal rules restrict any use of the information to criminally investigate or prosecute any alcohol or drug abuse patient.[facility]In the event this information is protected by the Federal Confidentiality of Alcohol and Drug Abuse Patient Records regulations: The Federal rules restrict any use of the information to criminally investigate or prosecute any alcohol or drug abuse patient.[facility]In the event this information is protected by the Federal Confidentiality of Alcohol and Drug Abuse Patient Records regulations: The Federal rules restrict any use of the information to criminally investigate or prosecute any alcohol or drug abuse patient.[facility] HospitalIn the event this information is protected by the Federal Confidentiality of Alcohol and Drug Abuse Patient Records regulations: The Federal rules restrict any use of the information to criminally investigate or prosecute any alcohol or drug abuse patient.[facility] HospitalIn the event this information is protected by the Federal Confidentiality of Alcohol and Drug Abuse Patient Records regulations: The Federal rules restrict any use of the information to criminally investigate or prosecute any alcohol or drug abuse patient.[facility] HospitalIn the event this information is protected by the Federal Confidentiality of Alcohol and Drug Abuse Patient Records regulations: The Federal rules restrict any use of the information to criminally investigate or prosecute any alcohol or drug abuse patient.[facility]In the event this information is protected by the Federal Confidentiality of Alcohol and Drug Abuse Patient Records regulations: The Federal rules restrict any use of the information to criminally investigate or prosecute any alcohol or drug abuse patient.[facility] HospitalIn the event this information is protected by the Federal Confidentiality of Alcohol and Drug Abuse Patient Records regulations: The Federal rules restrict any use of the information to criminally investigate or prosecute any alcohol or drug abuse patient.[facility] HospitalIn the event this information is protected by the Federal Confidentiality of Alcohol and Drug Abuse Patient Records regulations: The Federal rules restrict any use of the information to criminally investigate or prosecute any alcohol or drug abuse patient.[facility] HospitalIn the event this information is protected by the Federal Confidentiality of Alcohol and Drug Abuse Patient Records regulations: The Federal rules restrict any use of the information to criminally investigate or prosecute any alcohol or drug abuse patient.[facility] HospitalIn the event this information is protected by the Federal Confidentiality of Alcohol and Drug Abuse Patient Records regulations: The Federal rules restrict any use of the information to criminally investigate or prosecute any alcohol or drug abuse patient.[facility] HospitalIn the event this information is protected by the Federal Confidentiality of Alcohol and Drug Abuse Patient Records regulations: The Federal rules restrict any use of the information to criminally investigate or prosecute any alcohol or drug abuse patient.[facility] HospitalIn the event this information is protected by the Federal Confidentiality of Alcohol and Drug Abuse Patient Records regulations: The Federal rules restrict any use of the information to criminally investigate or prosecute any alcohol or drug abuse patient.[facility] HospitalIn the event this information is protected by the Federal Confidentiality of Alcohol and Drug Abuse Patient Records regulations: The Federal rules restrict any use of the information to criminally investigate or prosecute any alcohol or drug abuse patient.[facility] HospitalIn the event this information is protected by the Federal Confidentiality of Alcohol and Drug Abuse Patient Records regulations: The Federal rules restrict any use of the information to criminally investigate or prosecute any alcohol or drug abuse patient.[facility] HospitalIn the event this information is protected by the Federal Confidentiality of Alcohol and Drug Abuse Patient Records regulations: The Federal rules restrict any use of the information to criminally investigate or prosecute any alcohol or drug abuse patient.[facility] HospitalIn the event this information is protected by the Federal Confidentiality of Alcohol and Drug Abuse Patient Records regulations: The Federal rules restrict any use of the information to criminally investigate or prosecute any alcohol or drug abuse patient.[facility] HospitalIn the event this information is protected by the Federal Confidentiality of Alcohol and Drug Abuse Patient Records regulations: The Federal rules restrict any use of the information to criminally investigate or prosecute any alcohol or drug abuse patient.[facility] HospitalIn the event this information is protected by the Federal Confidentiality of Alcohol and Drug Abuse Patient Records regulations: The Federal rules restrict any use of the information to criminally investigate or prosecute any alcohol or drug abuse patient.[facility] HospitalIn the event this information is protected by the Federal Confidentiality of Alcohol and Drug Abuse Patient Records regulations: The Federal rules restrict any use of the information to criminally investigate or prosecute any alcohol or drug abuse patient.[facility] HospitalIn the event this information is protected by the Federal Confidentiality of Alcohol and Drug Abuse Patient Records regulations: The Federal rules restrict any use of the information to criminally investigate or prosecute any alcohol or drug abuse patient.[facility] HospitalIn the event this information is protected by the Federal Confidentiality of Alcohol and Drug Abuse Patient Records regulations: The Federal rules restrict any use of the information to criminally investigate or prosecute any alcohol or drug abuse patient.[facility] HospitalIn the event this information is protected by the Federal Confidentiality of Alcohol and Drug Abuse Patient Records regulations: The Federal rules restrict any use of the information to criminally investigate or prosecute any alcohol or drug abuse patient.[facility] HospitalIn the event this information is protected by the Federal Confidentiality of Alcohol and Drug Abuse Patient Records regulations: The Federal rules restrict any use of the information to criminally investigate or prosecute any alcohol or drug abuse patient.[facility] HospitalIn the event this information is protected by the Federal Confidentiality of Alcohol and Drug Abuse Patient Records regulations: The Federal rules restrict any use of the information to criminally investigate or prosecute any alcohol or drug abuse patient.[facility] HospitalIn the event this information is protected by the Federal Confidentiality of Alcohol and Drug Abuse Patient Records regulations: The Federal rules restrict any use of the information to criminally investigate or prosecute any alcohol or drug abuse patient.[facility] HospitalIn the event this information is protected by the Federal Confidentiality of Alcohol and Drug Abuse Patient Records regulations: The Federal rules restrict any use of the information to criminally investigate or prosecute any alcohol or drug abuse patient.[facility] HospitalIn the event this information is protected by the Federal Confidentiality of Alcohol and Drug Abuse Patient Records regulations: The Federal rules restrict any use of the information to criminally investigate or prosecute any alcohol or drug abuse patient.[facility] HospitalIn the event this information is protected by the Federal Confidentiality of Alcohol and Drug Abuse Patient Records regulations: The Federal rules restrict any use of the information to criminally investigate or prosecute any alcohol or drug abuse patient.[facility] HospitalIn the event this information is protected by the Federal Confidentiality of Alcohol and Drug Abuse Patient Records regulations: The Federal rules restrict any use of the information to criminally investigate or prosecute any alcohol or drug abuse patient.[facility] HospitalIn the event this information is protected by the Federal Confidentiality of Alcohol and Drug Abuse Patient Records regulations: The Federal rules restrict any use of the information to criminally investigate or prosecute any alcohol or drug abuse patient.[facility] HospitalIn the event this information is protected by the Federal Confidentiality of Alcohol and Drug Abuse Patient Records regulations: The Federal rules restrict any use of the information to criminally investigate or prosecute any alcohol or drug abuse patient.[facility] HospitalIn the event this information is protected by the Federal Confidentiality of Alcohol and Drug Abuse Patient Records regulations: The Federal rules restrict any use of the information to criminally investigate or prosecute any alcohol or drug abuse patient.[facility] HospitalIn the event this information is protected by the Federal Confidentiality of Alcohol and Drug Abuse Patient Records regulations: The Federal rules restrict any use of the information to criminally investigate or prosecute any alcohol or drug abuse patient.[facility] HospitalIn the event this information is protected by the Federal Confidentiality of Alcohol and Drug Abuse Patient Records regulations: The Federal rules restrict any use of the information to criminally investigate or prosecute any alcohol or drug abuse patient.[facility] HospitalIn the event this information is protected by the Federal Confidentiality of Alcohol and Drug Abuse Patient Records regulations: The Federal rules restrict any use of the information to criminally investigate or prosecute any alcohol or drug abuse patient.[facility] HospitalIn the event this information is protected by the Federal Confidentiality of Alcohol and Drug Abuse Patient Records regulations: The Federal rules restrict any use of the information to criminally investigate or prosecute any alcohol or drug abuse patient.[facility] HospitalIn the event this information is protected by the Federal Confidentiality of Alcohol and Drug Abuse Patient Records regulations: The Federal rules restrict any use of the information to criminally investigate or prosecute any alcohol or drug abuse patient.[facility] HospitalIn the event this information is protected by the Federal Confidentiality of Alcohol and Drug Abuse Patient Records regulations: The Federal rules restrict any use of the information to criminally investigate or prosecute any alcohol or drug abuse patient.[facility] HospitalIn the event this information is protected by the Federal Confidentiality of Alcohol and Drug Abuse Patient Records regulations: The Federal rules restrict any use of the information to criminally investigate or prosecute any alcohol or drug abuse patient.[facility] HospitalIn the event this information is protected by the Federal Confidentiality of Alcohol and Drug Abuse Patient Records regulations: The Federal rules restrict any use of the information to criminally investigate or prosecute any alcohol or drug abuse patient.[facility] HospitalIn the event this information is protected by the Federal Confidentiality of Alcohol and Drug Abuse Patient Records regulations: The Federal rules restrict any use of the information to criminally investigate or prosecute any alcohol or drug abuse patient.[facility] HospitalIn the event this information is protected by the Federal Confidentiality of Alcohol and Drug Abuse Patient Records regulations: The Federal rules restrict any use of the information to criminally investigate or prosecute any alcohol or drug abuse patient.[facility] HospitalIn the event this information is protected by the Federal Confidentiality of Alcohol and Drug Abuse Patient Records regulations: The Federal rules restrict any use of the information to criminally investigate or prosecute any alcohol or drug abuse patient.[facility] HospitalIn the event this information is protected by the Federal Confidentiality of Alcohol and Drug Abuse Patient Records regulations: The Federal rules restrict any use of the information to criminally investigate or prosecute any alcohol or drug abuse patient.[facility] HospitalIn the event this information is protected by the Federal Confidentiality of Alcohol and Drug Abuse Patient Records regulations: The Federal rules restrict any use of the information to criminally investigate or prosecute any alcohol or drug abuse patient.[facility] HospitalIn the event this information is protected by the Federal Confidentiality of Alcohol and Drug Abuse Patient Records regulations: The Federal rules restrict any use of the information to criminally investigate or prosecute any alcohol or drug abuse patient.[facility] HospitalIn the event this information is protected by the Federal Confidentiality of Alcohol and Drug Abuse Patient Records regulations: The Federal rules restrict any use of the information to criminally investigate or prosecute any alcohol or drug abuse patient.[facility] HospitalIn the event this information is protected by the Federal Confidentiality of Alcohol and Drug Abuse Patient Records regulations: The Federal rules restrict any use of the information to criminally investigate or prosecute any alcohol or drug abuse patient.[facility] HospitalIn the event this information is protected by the Federal Confidentiality of Alcohol and Drug Abuse Patient Records regulations: The Federal rules restrict any use of the information to criminally investigate or prosecute any alcohol or drug abuse patient.[facility] HospitalIn the event this information is protected by the Federal Confidentiality of Alcohol and Drug Abuse Patient Records regulations: The Federal rules restrict any use of the information to criminally investigate or prosecute any alcohol or drug abuse patient.[facility] HospitalIn the event this information is protected by the Federal Confidentiality of Alcohol and Drug Abuse Patient Records regulations: The Federal rules restrict any use of the information to criminally investigate or prosecute any alcohol or drug abuse patient.[facility] HospitalIn the event this information is protected by the Federal Confidentiality of Alcohol and Drug Abuse Patient Records regulations: The Federal rules restrict any use of the information to criminally investigate or prosecute any alcohol or drug abuse patient.[facility] HospitalIn the event this information is protected by the Federal Confidentiality of Alcohol and Drug Abuse Patient Records regulations: The Federal rules restrict any use of the information to criminally investigate or prosecute any alcohol or drug abuse patient.[facility] HospitalIn the event this information is protected by the Federal Confidentiality of Alcohol and Drug Abuse Patient Records regulations: The Federal rules restrict any use of the information to criminally investigate or prosecute any alcohol or drug abuse patient.[facility] HospitalIn the event this information is protected by the Federal Confidentiality of Alcohol and Drug Abuse Patient Records regulations: The Federal rules restrict any use of the information to criminally investigate or prosecute any alcohol or drug abuse patient.[facility] Reason for Visit (unrecogniz ed section and content) Reason Comments New Patient New Patient need to be established Reason Comments Appointment CONSULT TO ORTHO RAMON ANNA Reason Comments Results Reason Comments Hypertension Reason Comments Consult Reason Comments Medication Problem Reason Comments Hypertension 1 month follow up fo r HTN Reason Comments Hypertension 1 month follow up fo r HTN Reason Comments PT Eval Status Reason Specialty Diagnoses / Procedures Referred By Contact Referred To Contact Ref Not Required PHYSICAL THERAPY Diagnoses Left shoulder pain, unspecified chronicity Procedures CONSULT TO PHYSICAL THERAPY (AG) Belgica Herrera [address] [place] [id number] [facility] [address] [place] [address] Reason Comments Patient Update Reason Comments Consult CONSULTS TO ENT AND OPTHALMOLOGY Status Reason Specialty Diagnoses / Procedures Referred By Contact Referred To Contact Authorized Credentialing Analyst / PSYCHIATRY Diagnoses Other specified anxiety disorders My Chart Zoom New pt appt. F41.8 Procedures EST PATIENT VISIT LEVEL 1 MYC PSYC/PSYL NEW VIDEO (ZOOM) Belgica Herrera [address] [place] [id number] Juancho Benedict (Manager Garage-S) [address] [facility] [address] [facility] [address] [place] [phone] Reason Comments Hypertension Nausea Musculoskeletal Problem body aches and p ain Reason Comments Patient Update Neurology referral, no number on file for the patient Reason Comments Appointment CONSULT TO PHYSICAL THERAPY PLACED Reason Comments Results Appointment Patient Update Reason Onset Date Comments Medical Surgical Tech Chronic Care 07/22/2021 PCC f/u Reason Onset Date Comments Medical Surgical Tech Chronic Care 07/23/2021 Refill Reason Onset Date Comments Medical Surgical Tech Chronic Care 08/05/2021 PCC f/u Specialty Diagnoses / Procedures Referred By Vadim t Referred To Contact MR IMAGING Diagnoses Malignant neoplasm of rectosigmoid junction (HCC) Procedures MRI PELVIS WO/W IVCON MRI PELVIS W/WO CONTRAST Artem Ahmadi MD [address] [facility] [address] [place] [address] Mr Imaging Referral ID Status Reason Start Date Expiration Date V isits Requested Visits Authorized Closed Auto-Generate d Referral 06/10/2021 01/10/2022 1 1 Reason Comments Follow Up mri results and diab etic Reason Onset Date Comments Medical Surgical Tech Chronic Care 09/06/2021 PCC f/u Reason Onset Date Comments Transition Of Care 09/08/2021 ED D/C 09/07/21 Medical Surgical Tech - Patient Initiated 11/2021 Received call from pt Reason Onset Date Comments Medical Surgical Tech Chronic Care 09/17/2021 PCC f/u Reason Comments Internal Referrals/resources Ophthalmolo gy Reason Comments ER F/U boil on the neck Reason Comments Internal Referrals/resources Nephrology Reason Comments Two Week Follow Up Reason Comments Schedule Surgery Reason Comments Follow Up Phone Call called pt mailbox f ull mailed letter Reason Comments Prostate Problem BPH Reason Onset Date Comments Medical Surgical Tech Chronic Care 11/01/2021 PCC f/u Reason Comments Follow Up Reason Comments Schedule Surgery Phaco Right Eye Reason Comments Diabetes Reason Comments Letter Reason Onset Date Comments Medical Surgical Tech Chronic Care 12/03/2021 PCC f/u Reason Onset Date Comments Medical Surgical Tech Chronic Care 12/28/2021 PCC f/u Reason Comments Hypertension Reason Onset Date Comments Medical Surgical Tech Chronic Care 01/07/2022 PCC f/u Reason Comments Appointment Reason Comments Consult Reason Onset Date Comments Psychiatric Problem 01/17/2022 Reason Onset Date Comments Medical Surgical Tech Hospital Follow Up 01/01 Hospital admit - [facility] Reason Onset Date Comments Behavioral Problem 01/19/2022 Reason Comments Appointment A-scan reminder Surgery Cancelled Per Patient Reason Onset Date Comments Transition Of Care 01/28/2022 CC Yarsanism D /C to SNF 01/27/22 Reason Onset Date Comments Transition Of Care 02/21/2022 SNF status - SNF D/C 02/15/22 Medical Surgical Tech Chronic Care 02/21/2022 PCC f/u Reason Comments No Show Reason Comments Hypertension Pt wants to discuss PET scan to see why his body is in so much brooks Reason Onset Date Comments Medical Surgical Tech Chronic Care 03/11/2022 PCC f/u Transition Of Care 03/11/2022 TCM f/u Reason Onset Date Comments Transition Of Care 03/17/2022 TCM f/u Medical Surgical Tech Chronic Care 03/17/2022 PCC f/u Reason Onset Date Comments Transition Of Care 04/05/2022 AG D/C Reason Comments Ambulatory Social Work Community resourc es Reason Onset Date Comments Medical Surgical Tech Chronic Care 04/21/2022 PCC f/u Transition Of Care 04/21/2022 TCM f/u Reason Onset Date Comments Medical Surgical Tech Chronic Care 04/26/2022 PCC f/u Transition Of Care 04/26/2022 TCM f/u Reason Comments eyeglass perscription Reason Onset Date Comments Medical Surgical Tech Chronic Care 05/11/2022 PCC f/u Reason Comments Medication Update Reason Comments Consult New patient - referr al from Dr. Vega / rectum cancer Requesting PET scan for left groinDiscuss depression Reason Comments Psg Check In (Adult) Reason Onset Date Comments Opened In Error 06/28/2022 Reason Comments Lab & Test Results Reason Comments New Pain Reason Comments Decreased Vision Both Eyes Reason Comments Appointment ascan Reason Comments Returning Patient's Call r/s ascan Reason Comments Appointment A-scan reminder Reason Comments Yearly Exam Reason Comments Appointment sx Specialty Diagnoses / Procedures Referred By Vadim wiseman Referred To Contact Diagnoses Pain of left hip Procedures ARTHROCENTESIS ASPIR&/INJ MAJOR JT/BURSA W/O US INJECTION HIP ARTHROGRAPHY W/O ANESTHESIA INJECT HIP LEFT Ak Interventional Radiology [address] [place] [address] Referral ID Status Reason Start Date Expiration Date Visits Re quested Visits Authorized [id number] 1 1 Specialty Diagnoses / Procedures Referred By Vadim wiseman Referred To Contact MR IMAGING Diagnoses Pain in hip Chronic left hip pain Procedures MRI ARTHROGRAM HIP LEFT MRI ANY JT LOWER EXTREM W/CONTRAST MATERIAL Binh Lake R, DO [address] [place] [address] Mr Imaging Referral ID Status Reason Start Date Expiration Date V isits Requested Visits Authorized [id number] Closed Auto-Generate d Referral 07/01/2022 07/31/2023 1 1 Reason Comments Established Patient Reason Comments Post-op (Ophthalmology) Right Eye Reason Comments Established Patient mri Follow Up mri Pain mri Reason Comments Hospital Follow Up Vomiting and dehydra kurt Reason Comments Consult Cardio / [place] / Nep hro Reason Onset Date Comments Medical Surgical Tech Chronic Care 09/29/2022 PCC f/u Transition Of Care 09/29/2022 TCM f/u Reason Onset Date Comments Transition Of Care 10/03/2022 TCM f/u Medical Surgical Tech Chronic Care 10/03/2022 PCC f/u Reason Comments New Reason Onset Date Comments Medical Surgical Tech Chronic Care 10/12/2022 PCC f/u Transition Of Care 10/12/2022 TCM f/u Reason Comments New Patient Evaluation Ischemia Reason Comments Patient Question Reason Onset Date Comments Medical Surgical Tech Chronic Care 11/01/2022 PCC f/u Transition Of Care 11/01/2022 TCM f/u Reason Comments Results Surgical pathology Reason Comments Benign Prostatic Hypertrophy Nocturia Reason Comments Consult Endocrinology Reason Comments Consult Dermatology Reason Comments Results Abcess on right unde rarm Reason Comments Internal Referrals/resources Neurology Reason Comments Appointment New patient Referral Reason Comments Medical Surgical Tech Chronic Care Pt feels sick Reason Onset Date Comments Medical Surgical Tech Chronic Care 11/24/2022 PCC f/u Reason Comments Consult Pain Management Reason Comments Medication Follow-up Reason Comments Established Patient Follow Up Pain Reason Onset Date Comments Medical Surgical Tech Chronic Care 01/27/2023 PCC f/u Reason Onset Date Comments Medical Surgical Tech Chronic Care 05/19/2023 PCC f/u Reason Onset Date Comments Medical Surgical Tech Chronic Care 05/23/2023 D/C Care Coordination - Non-CC PCP Reason Comments Consult New Patient Specialty Diagnoses / Procedures Referred By Contac t Referred To Contact Endocrinology Diagnoses Diabetes mellitus due to underlying condition, uncontrolled, with hyperglycemia (HCC) H/O medication noncompliance Procedures CONSULT TO ENDOCRINOLOGY OFFICE/OUTPATIENT NEW HIGH MDM 60-74 MINUTES Belgica Vega DO [address] [facility] [address] [place] [address] Referral ID Status Reason Start Date Expiration Date V isits Requested Visits Authorized [id number] Closed PCP Requested Referral 11/04/2022 11/04/2023 1 1 Reason Comments CKD Follow Up Reason Comments Home Care MD to follow Reason Comments Home Care Confirmation Call Reason Comments Home Care Specialty Diagnoses / Procedures Referred By Vadim wiseman Referred To Contact HOME C[facility] Home Care [address] [place] [id number] Referral ID Status Reason Start Date Expiration Date Visits Re quested Visits Authorized [id number] 1 1 Reason Comments Home Care Scheduling Confirmat ion (Evaluation visit) Reason Comments Home Care DELAY IN SERVICE Reason Comments Erroneous encounter-disregard Reason Onset Date Comments Medication Problem 11/10/2023 Reason Comments Home Care Unmade P.T. visit Reason Comments Schedule Colonoscopy Reason Comments Comprehensive Health Assessment Reason Comments Chronic Kidney Disease 4 mo f/u Reason Comments Procedure COLONOSCOPY Reason Onset Date Comments Results 05/14/2024 Reason Onset Date Comments Other 06/28/2024 Reason Comments Home Care MD to Follow Reason Comments Home Care Referral discarded Reason Onset Date Comments Medication Problem 04/27/2024 Prior Authorization 04/27/2024 Telephone Encounter - Bunny Giraldo) - 02/17/2020 9:28 AM ESTTelephone Encounter - Belgica Herrera - 02/17/2020 5:55 PM ESTTelephone Encounter - Samia Thomason) - 02/18/2020 2:25 PM EST Miscellaneous Notes (unrecog nized section and content) CONSULT TO ORTHOPAEDIC SURGERY PLACED. CONF. # [id number] Bunny Giraldo LPN 02/17/2020 9:29 AM documented in this encounter Please notify patient of lumbar x-ray results:IMPRESSION: 1. No radiographic evidence of acute osseous abnormalities. 2. Moderate multilevel degenerative changes. in layman's terms this means there is arthritis of the back Thank you, Belgica Herrera D.O. documented in this encounter Patient notified and verbalized understanding. Patient had no further questions at this time. Samia Thomason LPN 02/18/2020 2:25 PM Please notify patient of hemoglobin A1c of 13.2.The hemoglobin A1c goal for a diabetic is 7 or less. Please also inform patient diabetes has affected the kidneys so A1c control is important.Low-carb and low concentrated sweets diet is recommended. Prescription for Actos plus metformin which patient has been on in the past was ordered for patient to seed cone picker from pharmacy. Glucose was 322. Please have patient schedule appointment as soon as possible to discuss labs Vitamin D level was 18.8. Dietary sources of vitamin D include fatty fishes such as salmon, sardines, tuna, mushrooms, cod liver oil, fortified milk, fortified soy milk, yogurt and egg yolks. Exposure to sunlight can also cause your skin to make vitamin D. Use of sunscreen with SPF 50 is recommended. Patient may opt to take 5000 units daily of vitamin D. A low-fat and low-cholesterol diet is recommended. .Rest of labs look good! Thank you , Belgica Herrera D.O. documented in this encounter Consult to behavioral health, # [id number] documented in this encounter Consult to behavioral health, # [id number] documented in this encounter Please notify patient received form from [employer] indicating that they will only provide him with temporary supply of Actos/metformin 15-500 mg. Please have patient contact insurance to see what is on formulary to replace it.Thank you, Belgica Herrera D.O. documented in this encounter Please notify patient of PT concerns below:Urvashi, I recently evaluated José Manuel for outpatient physical therapy for his back pain. After the evaluation, I have concerns regarding his safety and tolerance for outpatient intervention. The effort required to transport himself to physical therapy and the effort required for completion of physical therapy sessions may cause patient to be unsafe in the community and at home, resulting in increased fall risk. At this time, it is recommended that the patient completes home health physical therapy to promote patient safety and basic mobility for ADLs. If you have any questions please let me know. Carla Tripathi, JUSTIN, DPT Can discuss further at appointment Thank you, Belgica Herrera D.O. ----- Message from Carla Tripathi sent at 05/05/2020 6:22 PM EST ----- Regarding: Referral Urvashi, I recently evaluated José Manuel for outpatient physical therapy for his back pain. After the evaluation, I have concerns regarding his safety and tolerance for outpatient intervention. The effort required to transport himself to physical therapy and the effort required for completion of physical therapy sessions may cause patient to be unsafe in the community and at home, resulting in increased fall risk. At this time, it is recommended that the patient completes home health physical therapy to promote patient safety and basic mobility for ADLs. If you have any questions please let me know. Carla Tripathi PT, DPT documented in this encounter Please notify patient of left shoulder x-ray results:IMPRESSION: Mild osteoarthritis of the acromioclavicular joint. Please have patient follow-up with PT and orthopedics Thank you, Belgica Herrera D.O. documented in this encounter Please notify patient received labs. Hemoglobin A1c is improving, it is 10.5. The hemoglobin A1c goal for a diabetic is 7 or less. Urine shows a lot of sugar in it A low-fat and low-cholesterol diet is recommended. Please have patient schedule appointment to discuss labs Thank you, Belgica Herrera D.O. documented in this encounter CONSULTS TO OPHTHALMOLOGY PLACED IN PORTAL CONF # [id number] CONSULT TO ENT PLACED IN PORTAL CONF # [id number] Bunny Giraldo LPN 02/21/2020 11:36 AM documented in this encounter Please send letter to patient regarding the above Thank you, Belgica Herrera D.O. The department of Neurology called into the office stating that they have tried reaching out to the patient at the telephone number listed in the patients chart [phone] and when called she reached a lady who stated that the number was incorrect and she has tried telling people from [facility] this several times. Neurology has no way in contacting the patient regarding scheduling a appointment due to no number on file. Eden Aragon CMA documented in this encounter CONSULT TO PHYSICAL THERAPY PLACED. CONF. # [id number] Bunny Giraldo LPN 02/17/2020 9:48 AM documented in this encounter Eden Aragon) - 03/23/2020 4:42 PM EST Nursing Notes (unrecognized section and content) Patient has been identified by name and date of : Yes José Manuel Ashton is here for an injection of Multi Dose Flu, 1st Shingrix Given without incident. Dr. Belgica Herrera,DO present in clinic at time of injection. The date due for the next injection is 2-6 months. Eden Aragon CMA 03/23/2020 4:42 PM documented in this encounter (unrecognized sect ion and content) No Status Records FoundNo Status Records FoundNo Status Records FoundNo Status Records FoundNo Status Records FoundNo Status Records FoundNo Status Records Found INFORMATION SOURCE (unrecogn ized section and content) DATE CREATED AUTHOR 01/28/2021 [facility] DATE CREATED AUTHOR AUTHOR'S ORGANIZ ATION 02/28/[address] [facility] DATE CREATED AUTHOR AUTHOR'S ORGANIZ ATION 05/17/2024 [facility] DATE CREATED AUTHOR AUTHOR'S ORGANIZ ATION 06/30/2024 [facility] DATE CREATED AUTHOR AUTHOR'S ORGANIZ ATION 07/25/2024 [facility] DATE CREATED AUTHOR AUTHOR'S ORGANIZ ATION 07/25/2024 [facility] DATE CREATED AUTHOR AUTHOR'S ORGANIZ ATION 10/10/2024 [facility] Teams (unrecognized sec tion and content) Scrum Project Manager Relationship Specialty Start Date End Date Belgica Vega, DO [address] [place] [address] PCP - General Family Practice 02/26/21 Belgica Vega, DO [address] [place] [address] Family Practice 02/26/21 Jen Bergman, dairy workerMedical Surgical Tech 09/23/20 Scrum Project Manager Relationship Specialty Start Date End Date Belgica Vega DO [address] [place] [address] PCP - General Family Practice 02/26/21 Belgica Vega DO [address] [place] [address] Family Practice 02/26/21 Jen Bergman, dairy workerMedical Surgical Tech 09/23/20 Scrum Project Manager Relationship Specialty Start Date End Date Belgica Vega DO [address] [place] [address] PCP - General Family Practice 02/26/21 Belgica Vega DO [address] [place] [address] Family Practice 02/26/21 Jen Bergman, dairy workerMedical Surgical Tech 09/23/20 Scrum Project Manager Relationship Specialty Start Date End Date Belgica Vega DO [address] [place] [address] PCP - General Family Practice 02/26/21 Belgica Vega DO [address] [place] [address] Family Practice 02/26/21 Jen Bergman, dairy workerMedical Surgical Tech 09/23/20 Scrum Project Manager Relationship Specialty Start Date End Date Belgica Vega, DO [address] [place] [address] PCP - General Family Practice 02/26/21 Belgica Vega DO [address] [place] [address] Family Practice 02/26/21 Jen Bergman, dairy workerMedical Surgical Tech 09/23/20 Scrum Project Manager Relationship Specialty Start Date End Date Belgica Vega DO [address] [place] [address] PCP - General Family Practice 02/26/21 Belgica Vega DO [address] [place] [address] Family Practice 02/26/21 Jen Bergman, dairy workerMedical Surgical Tech 09/23/20 Scrum Project Manager Relationship Specialty Start Date End Date Belgica Vega DO [address] [place] [address] PCP - General Family Practice 02/26/21 Belgica Vega DO [address] [place] [address] Family Practice 02/26/21 Jen Bergman, dairy workerMedical Surgical Tech 09/23/20 Scrum Project Manager Relationship Specialty Start Date End Date Belgica Vega DO [address] [place] [address] PCP - General Family Practice 02/26/21 Belgica Vega DO [address] [place] [address] Family Practice 02/26/21 Jen Bergman, dairy workerMedical Surgical Tech 09/23/20 Scrum Project Manager Relationship Specialty Start Date End Date Belgica Vega, DO [address] [place] [address] PCP - General [facility] 02/26/21 Belgica Vega, DO [address] [place] [address] Family Practice 02/26/21 Jen Bergman, dairy workerMedical Surgical Tech 09/23/20 Scrum Project Manager Relationship Specialty Start Date End Date Belgica Vega, DO [address] [place] [address] PCP - General [facility] 02/26/21 Belgica Vega, DO [address] [place] [address] Family Practice 02/26/21 Jen Bergman, dairy workerMedical Surgical Tech 09/23/20 Scrum Project Manager Relationship Specialty Start Date End Date Belgica Vega, DO [address] [place] [address] PCP - General [facility] 02/26/21 Belgica Vega, DO [address] [place] [address] Family Practice 02/26/21 Jen Bergman, dairy workerMedical Surgical Tech 09/23/20 Scrum Project Manager Relationship Specialty Start Date End Date Belgica Vega, DO [address] [place] [address] PCP - General [facility] 02/26/21 Belgica Vega, DO [address] [place] [address] Family Practice 02/26/21 Jen Begrman, dairy workerMedical Surgical Tech 09/23/20 Scrum Project Manager Relationship Specialty Start Date End Date Belgica Vega, DO [address] [place] [address] PCP - General [facility] 02/26/21 Belgica Vega, DO [address] [place] [address] Family Practice 02/26/21 Jen Bergman, dairy workerMedical Surgical Tech 09/23/20 Scrum Project Manager Relationship Specialty Start Date End Date Belgica Vega, DO [address] [place] [address] PCP - General [facility] 02/26/21 Belgica Vega, DO [address] [place] [address] [facility] 02/26/21 Jen Bergman, dairy workerMedical Surgical Tech 09/23/20 Scrum Project Manager Relationship Specialty Start Date End Date Belgica Vega, DO [address] [place] [address] PCP - General [facility] 02/26/21 Belgica Vega, DO [address] [place] [address] [facility] 02/26/21 Jen Bergman, dairy workerMedical Surgical Tech 09/23/20 Belgica Vega, DO [address] [place] [address] [facility] [place] [facility] 10/08/21 Scrum Project Manager Relationship Specialty Start Date End Date Belgica Vega, DO [address] [place] [address] PCP - General [facility] 02/26/21 Belgica Vega, DO [address] [place] [address] Family Practice 02/26/21 Jen Bergman, dairy workerMedical Surgical Tech 09/23/20 Belgica Vega, DO [address] [place] [address] Referring Family Practice 10/08/21 Scrum Project Manager Relationship Specialty Start Date End Date Belgica Vega, DO [address] [place] [address] PCP - General Family Practice 02/26/21 Belgica Vega, DO [address] [place] [address] Family Practice 02/26/21 Jen Bergman, dairy workerMedical Surgical Tech 09/23/20 Belgica Vega, DO [address] [place] [address] Referring Family Practice 10/08/21 Scrum Project Manager Relationship Specialty Start Date End Date Belgica Vega, DO [address] [place] [address] PCP - General Family Practice 02/26/21 Belgica Vega, DO [address] [place] [address] Family Practice 02/26/21 Jen Bergman, dairy workerMedical Surgical Tech 09/23/20 Belgica Vega, DO [address] [place] [address] Referring Family Practice 10/08/21 Scrum Project Manager Relationship Specialty Start Date End Date Belgica Vega, DO [address] [place] [address] PCP - General Family Practice 02/26/21 Belgica Vega, DO [address] [place] [address] Family Practice 02/26/21 Jen Bergman, dairy workerMedical Surgical Tech 09/23/20 Belgica Vega, DO [address] [place] [address] Referring Family Practice 10/08/21 Scrum Project Manager Relationship Specialty Start Date End Date Belgica Vega, DO [address] [place] [address] PCP - General Family Practice 02/26/21 Belgica Vega, DO [address] [place] [address] Family Practice 02/26/21 Jen Bergman, dairy workerMedical Surgical Tech 09/23/20 Belgica Vega, DO [address] [place] [address] Referring Family Practice 10/08/21 Scrum Project Manager Relationship Specialty Start Date End Date Belgica Vega, DO [address] [place] [address] PCP - General Family Practice 02/26/21 Belgica Vega, DO [address] [place] [address] Family Practice 02/26/21 Jen Bergman, dairy workerMedical Surgical Tech 09/23/20 Belgica Vega, DO [address] [place] [address] Referring Family Practice 10/08/21 Scrum Project Manager Relationship Specialty Start Date End Date Belgica Vega, DO PCP - General Family Practice 02/26/21 Belgica Vega, DO Family Practice 02/26/21 Jen Bergman, dairy workerMedical Surgical Tech 09/23/20 Belgica Vega, DO Referring Family Practice 10/08/21 Scrum Project Manager Relationship Specialty Start Date End Date Belgica Vega, DO PCP - General Family Medicine 02/26/21 Belgica Vega, DO Family Medicine 02/26/21 Jen Bergman, dairy workerMedical Surgical Tech 09/23/20 Belgica Vega DO Referring Family Medicine 10/08/21 Scrum Project Manager Relationship Specialty Start Date End Date Belgica Vega DO PCP - General Family Medicine 02/26/21 Belgica Vega DO Family Medicine 02/26/21 Jen Bergman, dairy workerMedical Surgical Tech 09/23/20 Belgica Vega, DO Referring Family Medicine 10/08/21 Scrum Project Manager Relationship Specialty Start Date End Date Belgica Vega DO PCP - General Family Medicine 02/26/21 Belgica Vega DO Family Medicine 02/26/21 Jen Bergman, dairy workerMedical Surgical Tech 09/23/20 Belgica Vega, DO Referring Family Medicine 10/08/21 Scrum Project Manager Relationship Specialty Start Date End Date Belgica Vega, DO PCP - General Family Medicine 02/26/21 Belgica Vega, DO Family Medicine 02/26/21 Jen Begrman, dairy workerMedical Surgical Tech 09/23/20 Belgica Vega, DO Referring Family Medicine 10/08/21 Scrum Project Manager Relationship Specialty Start Date End Date Belgica Vega DO PCP - General Family Medicine 02/26/21 Belgica Vega, DO Family Medicine 02/26/21 Jen Bergman, dairy workerMedical Surgical Tech 09/23/20 Belgica Vega, DO Referring Family Medicine 10/08/21 Scrum Project Manager Relationship Specialty Start Date End Date Belgica Vega DO PCP - General Family Medicine 02/26/21 Belgica Vega, DO Family Medicine 02/26/21 Jen Bergman, dairy workerMedical Surgical Tech 09/23/20 Belgica Vega, DO Referring Family Medicine 10/08/21 Scrum Project Manager Relationship Specialty Start Date End Date Belgica Vega, DO PCP - General Family Medicine 02/26/21 Belgica Vega, DO Family Medicine 02/26/21 Jen Bergman, dairy workerMedical Surgical Tech 09/23/20 Belgica Vega, DO Referring Family Medicine 10/08/21 Scrum Project Manager Relationship Specialty Start Date End Date Belgica Vega DO PCP - General Family Medicine 02/26/21 Belgica Vega, DO Family Medicine 02/26/21 Jen Bergman, dairy workerMedical Surgical Tech 09/23/20 Belgica Vega, DO Referring Family Medicine 10/08/21 Scrum Project Manager Relationship Specialty Start Date End Date Belgica Vega DO PCP - General Family Medicine 02/26/21 Belgica Vega DO Family Medicine 02/26/21 Jen Bergman, dairy workerMedical Surgical Tech 09/23/20 Belgica Vega DO Referring Family Medicine 10/08/21 Scrum Project Manager Relationship Specialty Start Date End Date Belgica Vega DO PCP - General Family Medicine 02/26/21 Belgica Vega DO Family Medicine 02/26/21 Jen Bergman, dairy workerMedical Surgical Tech 09/23/20 Belgica Vega, DO Referring Family Medicine 10/08/21 Scrum Project Manager Relationship Specialty Start Date End Date Belgica Vega DO PCP - General Family Medicine 02/26/21 Belgica Vega, DO Family Medicine 02/26/21 Jen Bergman, dairy workerMedical Surgical Tech 09/23/20 Belgica Vega, DO Referring Family Medicine 10/08/21 Scrum Project Manager Relationship Specialty Start Date End Date Belgica Vega, DO PCP - General Family Medicine 02/26/21 Belgica Vega, DO Family Medicine 02/26/21 Jen Bergman, dairy workerMedical Surgical Tech 09/23/20 Belgica Vega, DO Referring Family Medicine 10/08/21 Scrum Project Manager Relationship Specialty Start Date End Date Belgica Vega DO PCP - General Family Medicine 02/26/21 Belgica Vega, DO Family Medicine 02/26/21 Jen Bergman, dairy workerMedical Surgical Tech 09/23/20 Belgica Vega, DO Referring Family Medicine 10/08/21 Scrum Project Manager Relationship Specialty Start Date End Date Belgica Vega DO PCP - General Family Medicine 02/26/21 Belgica Vega, DO Family Medicine 02/26/21 Jen Bergman, dairy workerMedical Surgical Tech 09/23/20 Belgica Vega, DO Referring Family Medicine 10/08/21 Scrum Project Manager Relationship Specialty Start Date End Date Belgica Vega, DO PCP - General Family Medicine 02/26/21 Belgica Vega, DO Family Medicine 02/26/21 Jen Bergman, dairy workerMedical Surgical Tech 09/23/20 Belgica Vega, DO Referring Family Medicine 10/08/21 Scrum Project Manager Relationship Specialty Start Date End Date Belgica Vega, DO PCP - General Family Medicine 02/26/21 Belgica Vega, DO Family Medicine 02/26/21 Jen Bergman, dairy workerMedical Surgical Tech 09/23/20 Belgica Vega, DO Referring Family Medicine 10/08/21 Scrum Project Manager Relationship Specialty Start Date End Date Belgica Vega DO PCP - General Family Medicine 02/26/21 Belgica Vega, DO Family Medicine 02/26/21 Jen Bergman, dairy workerMedical Surgical Tech 09/23/20 Belgica Vega, DO Referring Family Medicine 10/08/21 Scrum Project Manager Relationship Specialty Start Date End Date Belgica Vega, DO PCP - General Family Medicine 02/26/21 Belgica Vega, DO Family Medicine 02/26/21 Jen Bergman, dairy workerMedical Surgical Tech 09/23/20 Belgica Vega, DO Referring Family Medicine 10/08/21 Scrum Project Manager Relationship Specialty Start Date End Date Belgica Vega, DO PCP - General Family Medicine 02/26/21 Belgica Vega, DO Family Medicine 02/26/21 Jen Bergman, dairy workerMedical Surgical Tech 09/23/20 Belgica Vega, DO Referring Family Medicine 10/08/21 Scrum Project Manager Relationship Specialty Start Date End Date Belgica Vega DO PCP - General Family Medicine 02/26/21 Belgica Vega DO Family Medicine 02/26/21 Jen Bergman, dairy workerMedical Surgical Tech 09/23/20 Belgica Vega DO Referring Family Medicine 10/08/21 Scrum Project Manager Relationship Specialty Start Date End Date Belgica Vega DO PCP - General Family Medicine 02/26/21 Belgica Vega DO Family Medicine 02/26/21 Jen Bergman, dairy workerMedical Surgical Tech 09/23/20 Belgica Veag, DO Referring Family Medicine 10/08/21 Scrum Project Manager Relationship Specialty Start Date End Date Belgica Vega DO PCP - General Family Medicine 02/26/21 Belgica Vega DO Family Medicine 02/26/21 Jen Bergman, dairy workerMedical Surgical Tech 09/23/20 Belgica Vega, DO Referring Family Medicine 10/08/21 Scrum Project Manager Relationship Specialty Start Date End Date Belgica Vega, DO PCP - General Family Medicine 02/26/21 Belgica Vega, DO Family Medicine 02/26/21 Jen Bergman, dairy workerMedical Surgical Tech 09/23/20 Belgica Vega, DO Referring Family Medicine 10/08/21 Scrum Project Manager Relationship Specialty Start Date End Date Belgica Vega, DO PCP - General Family Medicine 02/26/21 Belgica Vega, DO Family Medicine 02/26/21 Jen Bergman, dairy workerMedical Surgical Tech 09/23/20 Belgica Vega, DO Referring Family Medicine 10/08/21 Scrum Project Manager Relationship Specialty Start Date End Date Belgica Vega, DO PCP - General Family Medicine 02/26/21 Belgica Vega, DO Family Medicine 02/26/21 Jen Bergman, dairy workerMedical Surgical Tech 09/23/20 Belgica Vega, DO Referring Family Medicine 10/08/21 Scrum Project Manager Relationship Specialty Start Date End Date Belgica Vega, DO PCP - General Family Medicine 02/26/21 Belgica Vega, DO Family Medicine 02/26/21 Jen Bergman, dairy workerMedical Surgical Tech 09/23/20 Belgica Vega, DO Referring Family Medicine 10/08/21 Scrum Project Manager Relationship Specialty Start Date End Date Belgica Vega DO PCP - General Family Medicine 02/26/21 Belgica Vega, DO Family Medicine 02/26/21 Jen Bergman, dairy workerMedical Surgical Tech 09/23/20 Belgica Vega DO Referring Family Medicine 10/08/21 Scrum Project Manager Relationship Specialty Start Date End Date Belgica Vega DO PCP - General Family Medicine 02/26/21 Belgica Vega DO Family Medicine 02/26/21 Jen Bergman, dairy workerMedical Surgical Tech 09/23/20 Belgica Vega DO Referring Family Medicine 10/08/21 Scrum Project Manager Relationship Specialty Start Date End Date Belgica Vega DO PCP - General Family Medicine 02/26/21 Blegica Vega DO Family Medicine 02/26/21 Jen Bergman, dairy workerMedical Surgical Tech 09/23/20 Belgica Vega DO Referring Family Medicine 10/08/21 Scrum Project Manager Relationship Specialty Start Date End Date Belgica Vega, DO PCP - General Family Medicine 02/26/21 Belgica Vega, DO Family Medicine 02/26/21 Jen Bergman, dairy workerMedical Surgical Tech 09/23/20 Belgica Vega, DO Referring Family Medicine 10/08/21 Scrum Project Manager Relationship Specialty Start Date End Date Belgica Vega DO PCP - General Family Medicine 02/26/21 Belgica Vega, DO Family Medicine 02/26/21 Jen Bergman, dairy workerMedical Surgical Tech 09/23/20 Belgica Vega DO Referring Family Medicine 10/08/21 Scrum Project Manager Relationship Specialty Start Date End Date Belgica Vega DO PCP - General Family Medicine 02/26/21 Belgica Vega DO Family Medicine 02/26/21 Jen Bergman, dairy workerMedical Surgical Tech 09/23/20 Belgica Vega, DO Referring Family Medicine 10/08/21 Scrum Project Manager Relationship Specialty Start Date End Date Belgica Vega DO PCP - General Family Medicine 02/26/21 Belgica Vega, DO Family Medicine 02/26/21 Jen Bergman, dairy workerMedical Surgical Tech 09/23/20 Belgica Vega, DO Referring Family Medicine 10/08/21 Scrum Project Manager Relationship Specialty Start Date End Date Belgica Vega DO PCP - General Family Medicine 02/26/21 Belgica Vega, DO [address] [place] [address] Family Medicine 02/26/21 Jen Bergman, dairy workerMedical Surgical Tech 09/23/20 Belgica Vega, DO Referring Family Medicine 10/08/21 Scrum Project Manager Relationship Specialty Start Date End Date Belgica Vega DO PCP - General Family Medicine 02/26/21 Belgica Vega, DO [address] [place] [address] Family Medicine 02/26/21 Jen Bergman, dairy workerMedical Surgical Tech 09/23/20 Belgica Vega, DO Referring Family Medicine 10/08/21 Scrum Project Manager Relationship Specialty Start Date End Date Belgica Vega DO PCP - General Family Medicine 02/26/21 Belgica Vega, DO [address] [place] [address] Family Medicine 02/26/21 Jen Bergman, dairy workerMedical Surgical Tech 09/23/20 Belgica Vega, DO Referring Family Medicine 10/08/21 Belgica Vega DO [address] [place] [address] Referring Family Medicine 10/03/22 Scrum Project Manager Relationship Specialty Start Date End Date Belgica Vega DO PCP - General Family Medicine 02/26/21 Belgica Vega DO [address] [place] [address] Family Medicine 02/26/21 eJn Bergman, dairy workerMedical Surgical Tech 09/23/20 Belgica Vega DO Referring Family Medicine 10/08/21 Belgica Vega DO [address] [place] [address] Referring Family Medicine 10/03/22 Scrum Project Manager Relationship Specialty Start Date End Date Belgica Vega DO PCP - General Family Medicine 02/26/21 Belgica Vega DO [address] [place] [address] Family Medicine 02/26/21 Jen Bergman, dairy workerMedical Surgical Tech 09/23/20 Belgica Vega DO Referring Family Medicine 10/08/21 Belgica Vega DO [address] [place] [address] Referring Family Medicine 10/03/22 Scrum Project Manager Relationship Specialty Start Date End Date Belgica Vega DO PCP - General Family Medicine 02/26/21 Belgica Vega DO [address] [place] [address] Family Medicine 02/26/21 Jen Bergman, dairy workerMedical Surgical Tech 09/23/20 Belgica Vega DO Referring Family Medicine 10/08/21 Belgica Vega DO [address] [place] [address] Referring Family Medicine 10/03/22 Scrum Project Manager Relationship Specialty Start Date End Date Belgica Vega DO PCP - General Family Medicine 02/26/21 Belgica Vega DO [address] [place] [address] Family Medicine 02/26/21 Jen Bergman, dairy workerMedical Surgical Tech 09/23/20 Belgica Vega DO Referring Family Medicine 10/08/21 Belgica Vega DO [address] [place] [address] Referring Family Medicine 10/03/22 Scrum Project Manager Relationship Specialty Start Date End Date Belgica Vega DO PCP - General Family Medicine 02/26/21 Belgica Vega DO [address] [place] [address] Family Medicine 02/26/21 Jen Bergman, dairy workerMedical Surgical Tech 09/23/20 Belgica Vega DO Referring Family Medicine 10/08/21 Belgica Vega DO [address] [place] [address] Referring Family Medicine 10/03/22 Scrum Project Manager Relationship Specialty Start Date End Date Belgica Vega DO PCP - General Family Medicine 02/26/21 Belgica Vega DO [address] [place] [address] Family Medicine 02/26/21 Jen Bergman, dairy workerMedical Surgical Tech 09/23/20 Belgica Vega DO Referring Family Medicine 10/08/21 Belgica Vega DO [address] [place] [address] Referring Family Medicine 10/03/22 Scrum Project Manager Relationship Specialty Start Date End Date Belgica Vega DO PCP - General Family Medicine 02/26/21 Belgica Vega DO [address] [place] [address] Family Medicine 02/26/21 Jen Bergman, dairy workerMedical Surgical Tech 09/23/20 Belgica Vega DO Referring Family Medicine 10/08/21 Belgica Vega DO [address] [place] [address] Referring Family Medicine 10/03/22 Scrum Project Manager Relationship Specialty Start Date End Date Belgica Vega DO PCP - General Family Medicine 02/26/21 Belgica Vega DO [address] [place] [address] Family Medicine 02/26/21 Jen Bergman, dairy workerMedical Surgical Tech 09/23/20 Belgica Vega DO Referring Family Medicine 10/08/21 Belgica Vega DO [address] [place] [address] Referring Family Medicine 10/03/22 Scrum Project Manager Relationship Specialty Start Date End Date Belgica Vega DO PCP - General Family Medicine 02/26/21 Belgica Vega DO [address] [place] [address] Family Medicine 02/26/21 Jen Bergman, dairy workerMedical Surgical Tech 09/23/20 Belgica Vega DO Referring Family Medicine 10/08/21 Belgica Vega DO [address] [place], [place] [address] [phone] Referring Family Medicine 10/03/22 Scrum Project Manager Relationship Specialty Start Date End Date Belgica Vega DO PCP - General Family Medicine 02/26/21 Belgica Vega DO [address] [place] [address] Family Medicine 02/26/21 Jen Bergman, dairy workerMedical Surgical Tech 09/23/20 Belgica Vega DO Referring Family Medicine 10/08/21 Belgica Vega DO [address] [place], [place] [address] [phone] Referring Family Medicine 10/03/22 Scrum Project Manager Relationship Specialty Start Date End Date Belgica Vega DO PCP - General Family Medicine 02/26/21 Belgica Vega DO [address] [place] [address] Family Medicine 02/26/21 Jen Bergman, dairy workerMedical Surgical Tech 09/23/20 Belgica Vega DO Referring Family Medicine 10/08/21 Belgica Vega DO [address] [place] [address] Referring Family Medicine 10/03/22 Scrum Project Manager Relationship Specialty Start Date End Date Belgica Vega DO PCP - General Family Medicine 02/26/21 Belgica Vega DO [address] [place] [address] Family Medicine 02/26/21 Jen Bergman, dairy workerMedical Surgical Tech 09/23/20 Belgica Vega DO Referring Family Medicine 10/08/21 Belgica Vega DO [address] [place] [address] Referring Family Medicine 10/03/22 Scrum Project Manager Relationship Specialty Start Date End Date Belgica Vega DO PCP - General Family Medicine 02/26/21 Belgica Vega DO [address] [place] [address] Family Medicine 02/26/21 Jen Bergman, dairy workerMedical Surgical Tech 09/23/20 Belgica Vega DO Referring Family Medicine 10/08/21 Belgica Vega DO [address] [place] [address] Referring Family Medicine 10/03/22 Scrum Project Manager Relationship Specialty Start Date End Date Belgica Vega DO PCP - General Family Medicine 02/26/21 Belgica Vega DO [address] [place] [address] Family Medicine 02/26/21 Jen Bergman, dairy workerMedical Surgical Tech 09/23/20 Belgica Vega DO Referring Family Medicine 10/08/21 Belgica Vega DO [address] [place] [address] Referring Family Medicine 10/03/22 Scrum Project Manager Relationship Specialty Start Date End Date Belgica Vega DO PCP - General Family Medicine 02/26/21 Belgica Vega DO [address] [place] [address] Family Medicine 02/26/21 Jen Bergman, dairy workerMedical Surgical Tech 09/23/20 Belgica Vega DO Referring Family Medicine 10/08/21 Belgica Vega DO [address] [place] [address] Referring Family Medicine 10/03/22 Scrum Project Manager Relationship Specialty Start Date End Date Belgica Vega DO PCP - General Family Medicine 02/20/20 02/25/21 Scrum Project Manager Relationship Specialty Start Date End Date Bunny Scott MD [address] [place] [address] PCP - General Internal Medicine 03/16/23 Belgica Vega DO [address] [place] [address] Family Medicine 02/26/21 05/23/23 Jen Bergman, dairy workerMedical Surgical Tech 09/23/20 Belgica Vega DO Referring Family Medicine 10/08/21 05/23/23 Belgica Vega DO [address] [place] [address] Referring Family Medicine 10/03/22 05/23/23 Scrum Project Manager Relationship Specialty Start Date End Date Bunny Scott MD [address] [place] [address] PCP - General Internal Medicine 03/16/23 Belgica Vega DO [address] [place] [address] Family Medicine 02/26/21 05/23/23 Jen Bergman, dairy workerMedical Surgical Tech 09/23/20 Belgica Vega DO Referring Family Medicine 10/08/21 05/23/23 Belgica Vega DO [address] [place] [address] Referring Family Medicine 10/03/22 05/23/23 Scrum Project Manager Relationship Specialty Start Date End Date Bunny Scott MD [address] [place] PCP - General Internal Medicine 03/16/23 Scrum Project Manager Relationship Specialty Start Date End Date Bunny Scott MD [address] [place] [address] PCP - General Internal Medicine 03/16/23 Scrum Project Manager Relationship Specialty Start Date End Date Bunny Scott MD [address] [place] [address] PCP - General Internal Medicine 03/16/23 Scrum Project Manager Relationship Specialty Start Date End Date Bunny Scott MD [address] [place] [address] PCP - General Internal Medicine 03/16/23 Scrum Project Manager Relationship Specialty Start Date End Date Bunny Scott MD [address] [place] [address] PCP - General Internal Medicine 03/16/23 Scrum Project Manager Relationship Specialty Start Date End Date Bunny Scott MD [address] [place] [address] PCP - General Internal Medicine 03/16/23 Bunny Scott MD [address] [place] [address] Home Care Provider Internal Medicine 10/12/23 Scrum Project Manager Relationship Specialty Start Date End Date Bunny Scott MD [address] [place] [address] PCP - General Internal Medicine 03/16/23 Bunny Scott MD [address] [place] [address] Home Care Provider Internal Medicine 10/12/23 Scrum Project Manager Relationship Specialty Start Date End Date Bunny Scott MD [address] [place] [address] PCP - General Internal Medicine 03/16/23 Bunny Scott MD [address] [place] [address] Home Care Provider Internal Medicine 10/12/23 Simeon Hinds RN [address] [facility] [place] [address] Credit Union Teller Post Acute Care 10/20/23 Scrum Project Manager Relationship Specialty Start Date End Date Bunny Scott MD [address] [place] [address] PCP - General Internal Medicine 03/16/23 Bunny Scott MD [address] [place] [address] Home Care Provider Internal Medicine 10/12/23 Simeon Hinds RN [address] [place] [address] Credit Union Teller Post Acute Care 10/20/23 Scrum Project Manager Relationship Specialty Start Date End Date Bunny Scott MD [address] [place], [place] [id number] PCP - General Internal Medicine 03/16/23 Bunny Scott MD [address] [place] [address] Home Care Provider Internal Medicine 10/12/23 Simeon Hinds, LEATHA [address] [facility] [place] [address] Credit Union Teller Post Acute Care 10/20/23 Scrum Project Manager Relationship Specialty Start Date End Date Bunny Scott MD [address] [place] [address] PCP - General Internal Medicine 03/16/23 Bunny Scott MD [address] [place] [address] Home Care Provider Internal Medicine 10/12/23 Simeon Hinds RN [address] [facility] [place] [address] Credit Union Teller Post Acute Care 10/20/23 Scrum Project Manager Relationship Specialty Start Date End Date Bunny Scott MD [address] [place] [address] PCP - General Internal Medicine 03/16/23 Bunny Scott MD [address] [place] [address] Home Care Provider Internal Medicine 10/12/23 Simeon Hinds RN [address] [facility], [place] [address] Credit Union Teller Post Acute Care 10/20/23 Scrum Project Manager Relationship Specialty Start Date End Date Bunny Scott MD [address] [place] [address] PCP - General Internal Medicine 03/16/23 Bunny Scott MD [address] [place] [address] Home Care Provider Internal Medicine 10/12/23 Simeon Hinds, LEATHA [address] [facility] [place] [address] Credit Union Teller Post Acute Care 10/20/23 Scrum Project Manager Relationship Specialty Start Date End Date Bunny Scott MD [address] [place] [address] PCP - General Internal Medicine 03/16/23 Bunny Scott MD [address] [place] [address] Home Care Provider Internal Medicine 10/12/23 Simeon Hinds RN [address] [facility], [place] [address] Credit Union Teller Post Acute Care 10/20/23 Scrum Project Manager Relationship Specialty Start Date End Date Bunny Scott MD [address] [place] [address] PCP - General Internal Medicine 03/16/23 Bunny Scott MD [address] [place] [address] Home Care Provider Internal Medicine 10/12/23 Simeon Hinds RN [address] [facility], [place] [address] Credit Union Teller Post Acute Care 10/20/23 Scrum Project Manager Relationship Specialty Start Date End Date Bunny Scott MD [address] [place] [address] PCP - General Internal Medicine 03/16/23 Bunny Scott MD [address] [place] [address] Home Care Provider Internal Medicine 10/12/23 Simeon Hinds RN [address] [facility] [place] [address] Credit Union Teller Post Acute Care 10/20/23 Scrum Project Manager Relationship Specialty Start Date End Date Bunny Scott MD [address] [place] [address] PCP - General Internal Medicine 03/16/23 Bunny Scott MD [address] [place] [address] Home Care Provider Internal Medicine 10/12/23 Simeon Hinds RN [address] [place], [place] [address] Credit Union Teller Post Acute Care 10/20/23 Scrum Project Manager Relationship Specialty Start Date End Date Bunny Scott MD [address] [place] [address] PCP - General Internal Medicine 03/16/23 Bunny Scott MD [address] [place] [address] Home Care Provider Internal Medicine 10/12/23 Simeon Hinds RN [address] [facility] [place] [address] Credit Union Teller Post Acute Care 10/20/23 Scrum Project Manager Relationship Specialty Start Date End Date Bunny Scott MD [address] [place] [address] PCP - General Internal Medicine 03/16/23 Bunny Scott MD [address] [place] [address] Home Care Provider Internal Medicine 10/12/23 Simeon Hinds, LEATHA [address] [facility] [place] [address] Credit Union Teller Post Acute Care 10/20/23 Scrum Project Manager Relationship Specialty Start Date End Date Bunny Scott MD [address] [place] [address] PCP - General Internal Medicine 03/16/23 Bunny Scott MD [address] [place] [address] Home Care Provider Internal Medicine 10/12/23 Simeon Hinds RN [address] [facility] [place] [address] Credit Union Teller Post Acute Care 10/20/23 Scrum Project Manager Relationship Specialty Start Date End Date Bunny Scott MD [address] [place] [address] PCP - General Internal Medicine 03/16/23 Bunny Scott MD [address] [place] [address] Home Care Provider Internal Medicine 10/12/23 Simeon Hinds RN [address] [facility] [place] [address] Credit Union Teller Post Acute Care 10/20/23 Scrum Project Manager Relationship Specialty Start Date End Date Bunny Scott MD [address] [place] [address] PCP - General Internal Medicine 03/16/23 Bunny Scott MD [address] [place] [address] Home Care Provider Internal Medicine 10/12/23 Scrum Project Manager Relationship Specialty Start Date End Date Bunny Scott MD [address] [place] [address] PCP - General Internal Medicine 03/16/23 Bunny Scott MD [address] [place] [address] Home Care Provider Internal Medicine 10/12/23 Scrum Project Manager Relationship Specialty Start Date End Date Bunny Scott MD [address] [place], [place] [id number] PCP - General Internal Medicine 03/16/23 Bunny Scott MD [address] [place] [address] Home Care Provider Internal Medicine 10/12/23 Scrum Project Manager Relationship Specialty Start Date End Date Bunny Scott MD [address] [place], [place] [address] PCP - General Internal Medicine 03/16/23 Bunny Scott MD [address] [place] [address] Home Care Provider Internal Medicine 10/12/23 Scrum Project Manager Relationship Specialty Start Date End Date Bunny Scott MD [address] [place] [address] PCP - General Internal Medicine 03/16/23 Bunny Scott MD [address] [place] [address] Home Care Provider Internal Medicine 10/12/23 Scrum Project Manager Relationship Specialty Start Date End Date Bunny Scott MD [address] [place] [address] PCP - General Internal Medicine 03/16/23 Bunny Scott MD [address] [place] [address] Home Care Provider Internal Medicine 10/12/23 Jose Dudley MD [address] [address] Physician Nephrology 01/23/24 Scrum Project Manager Relationship Specialty Start Date End Date Bunny Scott MD [address] [place] [address] PCP - General Internal Medicine 03/16/23 Bunny Scott MD [address] [place] [address] Home Care Provider Internal Medicine 10/12/23 Jose Dudley MD [address] [address] Physician Nephrology 01/23/24 Scrum Project Manager Relationship Specialty Start Date End Date Bunny Scott MD [address] [place] [address] PCP - General Internal Medicine 03/16/23 Bunny Scott MD [address] [place] [address] Home Care Provider Internal Medicine 10/12/23 Jose Dudley MD [address] [place] [address] Physician Nephrology 01/23/24 Scrum Project Manager Relationship Specialty Start Date End Date Bunny Scott DO [address] [place] [phone] PCP - General Family Medicine 12/13/23 Scrum Project Manager Relationship Specialty Start Date End Date Bunny Scott MD [address] [place] [address] PCP - General Internal Medicine 03/16/23 Bunny Scott MD [address] [place] [address] Home Care Provider Internal Medicine 10/12/23 Jose Dudley MD [address] [address] Physician Nephrology 01/23/24 Scrum Project Manager Relationship Specialty Start Date End Date Bunny Sctot MD [address] [place] [address] PCP - General Internal Medicine 03/16/23 Bunny Scott MD [address] [place] [address] Home Care Provider Internal Medicine 10/12/23 Jose Dudley MD [address] [place] [address] Physician Nephrology 01/23/24 Scrum Project Manager Relationship Specialty Start Date End Date Bunny Scott MD [address] [place] [address] PCP - General Internal Medicine 03/16/23 Bunny Scott MD [address] [place] [address] Home Care Provider Internal Medicine 10/12/23 Jose Dudley MD [address] [facility] [address] [place] [address] Physician Nephrology 01/23/24 Scrum Project Manager Relationship Specialty Start Date End Date Bunny Scott DO [address] [place] [phone] PCP - General Family Medicine 12/13/23 Scrum Project Manager Relationship Specialty Start Date End Date Bunny Scott MD [address] [place] [address] PCP - General Internal Medicine 03/16/23 Bunny Scott MD [address] [place] [address] Home Care Provider Internal Medicine 10/12/23 Jose Dudley MD [address] [facility] [address] [place] [address] Physician Nephrology 01/23/24 Scrum Project Manager Relationship Specialty Start Date End Date Bunny Scott MD [address] [place] [address] PCP - General Internal Medicine 03/16/23 Bunny Scott MD [address] [place] [address] Home Care Provider Internal Medicine 10/12/23 Jose Dudley MD [address] [address] Physician Nephrology 01/23/24 Scrum Project Manager Relationship Specialty Start Date End Date Bunny Scott MD [address] [place] [address] PCP - General Internal Medicine 03/16/23 Bunny Scott MD [address] [place] [address] Home Care Provider Internal Medicine 10/12/23 Jose Dudley MD [address] [address] Physician Nephrology 01/23/24 Scrum Project Manager Relationship Specialty Start Date End Date Bunny Scott MD [address] [place] [address] PCP - General Internal Medicine 03/16/23 Bunny Scott MD [address] [place] [address] Home Care Provider Internal Medicine 07/16/24 Jose Dudley MD [address] [address] Physician Nephrology 01/23/24 Bunny Scott MD [address] [place] [address] Referring Internal Medicine 07/16/24 Scrum Project Manager Relationship Specialty Start Date End Date Bunny Scott MD [address] [place] [address] PCP - General Internal Medicine 03/16/23 Bunny Scott MD [address] [place] [address] Home Care Provider Internal Medicine 07/16/24 Jose Dudley MD [address] [address] Physician Nephrology 01/23/24 Bunny Scott MD [address] [place] [address] Referring Internal Medicine 07/16/24 Scrum Project Manager Relationship Specialty Start Date End Date Bunny Scott DO [address] [place] [address] [place] [id number] PCP - General Family Medicine 12/13/23 Team Status: Inactive Member Role Status Dates Citlaly LORENZO MD Attending Provider Active Start: August 28, 2024 End: August 28, 2024 PRN Active and Recently Administ ered Medications (unrecognized section and content) Medication Order 08/28/2022 08/29/2022 08/30/2022 lidocaine 20 mg/mL (2 %) injection (XYLOCAINE) X (OR/PROCEDURE) PRN, Starting on Mon08/30/22 at 0737, Until Mon08/31/22 at 0305, Intraprocedure 0737 (Given - Provid er: Lamonte Curtis MD, ) Goals (unrecognized section and content) Goals may be documented in a n alternate section FOR RECORDS PERTAINING TO PATIENTS WHO ARE OR HAVE BEEN ENROLLED IN A CHEMICAL DEPENDENCY/SUBSTANCEABUSE PROGRAM, SOME INFORMATION MAY BE OMITTED. This clinical summary was aggregated from multiple sources. Caution should be exercised in using it in the provision of clinical care. This summary normalizes information from multiple sources, and as a consequence, information in this document may materially change the coding, format and clinical context of patient data. In addition, data may be omitted in some cases. CLINICAL DECISIONS SHOULD BE BASED ON THE PRIMARY CLINICAL RECORDS. [facility]. provides no warranty or guarantee of the accuracy or completeness of information in this document.
[2024-10-14 09:39] LABS: Albumin, Serum 4.0 g/dL (3.4-4.8); Anion Gap 17 (5-15); BUN 71 mg/dL (4-19); BUN/Creat Ratio 11.5 RATIO (10-20); Calcium,Total 9.5 mg/dL (7.6-11.0); Carbon Dioxide 23.8 mmol/L (21.0-32.0); Chloride 101 mmol/L (98-108); Glucose 140 mg/dL (70-99); Potassium 5.2 mmol/L (3.3-5.1)
== END ==
LOC: OLS.SANC 05:00
DX: E11.9 Type 2 diabetes mellitus without complications (principal); E78.5 Hyperlipidemia, unspecified; I10 Essential (primary) hypertension; D64.9 Anemia, unspecified
CPT/HCPCS: 36415; 80069

== ENCOUNTER → 2025-01-15 05:00 | Outpatient (REF) | payer MEDICARE, MEDICAID, SELFPAY ==
[2025-01-15 09:16] LABS: Hematocrit 26.2 % (40-54); Hemoglobin 8.3 g/dL (13.0-16.5); Mean Corp Hgb Conc 31.7 g/dL (32-36); Mean Corpuscular Volume 93.9 fL (80-94); Mean Platelet Vol. 9.7 fl (6.2-12.0); Platelet Count 225 K/mm3 (150-450); RBC Distribution Width CV 13.1 % (11.6-14.6); RBC Distribution Width SD 45.1 fl (35.1-43.9); Red Blood Count 2.79 M/mm3 (4.6-6.2); White Blood Count 7.2 K/mm3 (4.4-11.0)
[2025-01-15 09:29] LABS: Anion Gap 12 (5-15); BUN 51 mg/dL (4-19); BUN/Creat Ratio 9.1 RATIO (10-20); Calcium,Total 8.9 mg/dL (7.6-11.0); Carbon Dioxide 27.9 mmol/L (21.0-32.0); Chloride 100 mmol/L (98-108); Glucose 217 mg/dL (70-99); Potassium 4.7 mmol/L (3.3-5.1)
== END ==
LOC: OLS.SANC 05:00
DX: D64.9 Anemia, unspecified (principal); E11.9 Type 2 diabetes mellitus without complications; I10 Essential (primary) hypertension; E78.5 Hyperlipidemia, unspecified
CPT/HCPCS: 36415; 80048; 85027

== ENCOUNTER → 2025-02-04 04:00 | Outpatient (REF) | payer MEDICARE, MEDICAID, SELFPAY ==
--- OUTSIDE RECORDS SUMMARY | 2025-02-04 04:10 | XMS RPT_ITS | CCD ---
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 Name Role Phone Unavailable Primary Care Provider [...] Vega DO, Belgica L Primary Care Provider Vgea DO, Belgica L Unavailable Vega DO, Belgica L Unavailable Vega DO, Belgica L Primary Care Provider Vega DO, Belgica L Unavailable Vega DO, Belgica L Unavailable Vega DO, Belgica L Primary Care Provider Vega DO, Belgica L Unavailable Jen Bergman RN Unavailable Unavailable Vega DO, Belgica L Unavailable VEGA, BELGICA L Primary Care Unavailable KYLAH ORANTES Admitting Unavailable KYLAH ORANTES Attending Unavailable ANTOINE OLIVAS Admitting Unavailable VEGA, BELGICA L Primary Care [...] Provider ARTEM AHMADI Attending UnavailARTEM Durán Referring Unavailabl e TRISTAN SCOTTA M Primary Care Unavailable ESTERALYSIA, BUNNY M Primary Care Unavailable NOÉ KENNEDY Attending Unavailable BUNNY SCOTT Primary Care Unavailable ADELFO FRANCOIS Admitting Unavaila ADELFO [place] Attending Unavaila ble TYLER, BUNNY M Primary Care Unavailable YULIYA OLIVARES Admitting Unavailable YULIYA OLIVARES Attending Unavailable Bunny Scott MD Unavailable [phone] Bunny Scott MD Unavailable Bunny Scott MD Primary Care Provider Bunny Scott MD Unavailable Bunny cSott MD Unavailable BUNNY SCOTT Primary Care Unavailable BUNNY SCOTT Girma Primary Care Unavailable JOSE DUDLEY Consulting Unavailable BUNNY SCOTT Attending Unavailable BUNNY SCOTT Primary Care Unavailable BUNNY SCOTT Admitting Unavailable Brittaney Garcia MD Attending Provider Brittaney Rod MD Primary Care Provider [phone] BRITTANEY GARCIA Primary Care Unavailable FLORI HILLS Admitting Unavailable FLORI HILLS Attending Unavailable LUC HATCH Consulting Unavailable JUDITH ANGELES Consulting Unavailable WILLEM GAITAN Consulting Unavailable RENETTA GANNON Attending Unavailable BUNNY SCOTT Primary Care Unavailable [place] OLS, Brittaney Attending Unavail able [place] OLS, Brittaney Referring Unavail able [place] OLS, Brittaney Attending Unavail able [place] OLS, Brittaney Attending Unavail able [place] OLS, Joseaveer Attending Unavail able Allergies Allergy Classification Reported Allergen(s) Allergy Type Date of Onset Reaction(s) Facility Penicillins (antibiotic) (4 sources) Penicillins Drug Allergy 07-24-2020 Unknown [facility] (18 sources) Penicillins; Translations: [PENICILLINS] Propensity to adverse reactions to drug 07-24-2020 Unknown [facility] (20 sources) Penicillins Propensity to adverse reactions to drug 07-24-2020 Unknown [facility] (5 sources) Penicillins Propensity to adverse reactions to drug 07-24-2020 Unknown [facility] (2 sources) Penicillins Propensity to adverse reactions 07-24-2020 Unknown Medications Current Medications Medication Drug Class(es) Dates [...] on above: Take 1 tablet by corinne every 4 hours as needed for pain for up to 7 days. Administered Medications Medication Order MAR Action Action Date Dose Rate Site tuberculin skin test, unspecified formulation Given 04/28/2021 (1 source) Administered Medications Medication Order MAR Action Action Date Dose Rate Site tuberculin skin test, unspecified formulation Given 04/28/2021 [id number] 200 actuat albuterol 0.09 mg/actuat metered dose [...] hours as needed for wheezing/shortness of breath. albuterol 0.833 mg/ml / ipratropium bromide 0.167 mg/ml inhalation solution (4 sources) Anticholinergic, beta2-Adrenergic Agonist Start: 11-25-2024 End: 12-29-2024 ipratropium-albute rol (Duo-Neb) 0.5-2.5 mg/3 mL nebulizer solution Take 3 mL by nebulization every 4 hours as needed for shortness of breath or wheezing. 540 mL 11/29/2024 12/29/2024 Active amLODIPine 5 mg oral tablet (20 sources) Dihydropyridine Calcium Channel Meghan Start: 11-25-2024 End: 01-28-2025 take 1 tablet by mouth once daily amLODIPine (Norvasc) 5 MG tablet Take 1 tablet (5 mg) by mouth daily. 30 tablet 1 11/29/2024 01/28/2025 Active Start: 10-20-2023 End: 01-18-2024 take 1 tablet [...] by corinne th two times a day. bisacodyl 5 mg delayed release oral tablet (4 sources) Stimulant Laxative End: take 10 mg rectal route every twenty-four hours as needed for constipation bisacodyl (Dulcolax) 10 MG suppository Insert 10 mg into the rectum Daily as needed for constipation. 11/30/2024 Discontinued (Stop taking at discharge) take 1 tablet by corinne th every twenty-four hours as needed for constipation bisacodyl (Dulcolax) 5 MG EC tablet Take 5 mg by mouth Daily as needed for constipation. Do not crush, chew, or split. Active 12 hr buPROPion hydrochloride 100 mg extended release oral tablet (20 sources) Aminoketone Start: 05-31-2021 End: 01-18-2022 take 1 tablet by mouth [...] (20 sources) alpha-Adrenergic Meghan, beta-Adrenergic Meghan Start: 10-20-2023 take 1 tablet by mouth twice daily [...] days. 15 capsule 0 10/20/2023 10/25/2023 Active Chlorhexidine (2 sources) Start: End: apply 1 dose topically once daily Topical, Daily, First dose on 11/30/24 at 1400 clotrimazole 10 mg/ml topical cream (4 sources) Azole Antifungal Start: End: clotrimazole (LOTRIMIN, CLOTRIM) 1 % cream Indications: Tinea pedis of both feet Apply 1 application to affected area twice daily. 45 g 0 06/02/2021 08/02/2021 Active Comment on above: Apply 1 application to affected area twice daily. dapagliflozin 10 mg oral tablet (12 sources) Sodium-Glucose Cotransporter 2 Inhibitor Start: End: take 1 tablet by mouth once daily at breakfast dapagliflozin propanediol (FARXIGA) 10 mg tablet Take 1 tablet by mouth daily with breakfast. 90 tablet 1 01/24/2024 Active doxazosin 2 mg oral tablet (20 [...] on above: Take 1 tablet by corinne twice daily for 5 days. Take 1 tablet by corinne twice daily for 10 days. DULoxetine 30 mg delayed release oral capsule (20 sources) Serotonin and Norepinephrine Reuptake Inhibitor Start: take 1 capsule by mouth once daily DULoxetine (CYMBALTA) 30 mg capsule Take 1 capsule by mouth once daily. 30 capsule 2 10/21/2023 Active ergocalciferol 1.25 mg oral capsule (20 sources) Provitamin D2 Compound Start: End: take 1 capsule by mouth every week [...] Entry) Start: 01-30-2022 take 1 capsule by [facility] every week ergocalciferol 50,000 unit capsule (VITAMIN D2, DRISDOL) Take 1 capsule by mouth one time a week. 4 capsule 0 01/30/2022 Active Comment on above: Take 1 capsule by [facility] one time a week. finasteride 5 [...] oral capsule (20 sources) Anti-epileptic Agent Start: 1 End: 2 take 1 capsule by mouth three times daily gabapentin (NEURONTIN) 300 mg capsule Indications: Spinal stenosis of lumbar region with neurogenic claudication , Chronic bilateral low back pain with left-sided sciatica Take 1 capsule by mouth three times daily for 90 days. 90 capsule 2 10/21/2020 01/18/2022 Discontinued (Discontinued by Patient) Comment on above: Take 1 capsule by mo uth three times daily for 90 days. insulin glargine 100 unt/ml injectable solution (20 sources) Insulin Analog Start: 5 End: 5 inject 10 [IU] by subcutaneous injection once daily insulin glargine (Lantus) 100 UNIT/ML injection Inject 10 Units under the skin Nightly. 3 mL 11/29/2024 12/29/2024 Active Start: 07-15-2024 End: 08-14-2024 inject 18 [IU] by subcutaneous injection once [...] Units subcutaneously daily at bedtime. 6 Each 11/04/2022 Suspended Start: 03-01-2022 End: 11-04-2022 inject 26 [IU] by subcutaneous injection once daily at bedtime insulin glargine 100 unit/mL (3 mL) Indications: Diabetes mellitus due to underlying condition, uncontrolled, with hyperglycemia (HCC) Inject 26 Units subcutaneously daily at bedtime. 6 Each 11/04/2022 Active Start: 06-02-2021 End: 03-01-2022 insulin glargine (LANTUS EV OSTAR, BASAGLAR KWIKPEN) 100 unit/mL (3 mL) Indications: Diabetes mellitus due to underlying condition, uncontrolled, with hyperglycemia (HCC) Inject 26 Units subcutaneously daily at bedtime. 6 Each 03/01/2022 Active Comment on above: Inject 26 Units subc utaneously daily at bedtime. Inject 24 Units subc utaneously daily at bedtime. insulin lispro 100 unt/ml injectable solution (20 sources) Insulin Analog Start: 11-26-19 End: 12-01-19 inject 6 [IU] by subcutaneous injection three times daily at mealtime 0-6 Units, SubCUTAneous, 3 times daily with meals, First dose (after last modification) on Mon11/26/24 at 1700, Low Dose Correction Algorithm Glucose: Dose: LESS than 149 No Insulin 150-199 1 Unit 200-249 2 Units 250-299 3 Units 300-349 4 Units 350-400 5 Units Above 400 6 Units Start: 11-25-2024 End: 03-20-2025 inject 3 [IU] by subcutaneous injection three times daily at mealtime 3 Units, SubCUTAneous, 3 times daily with meals, First dose on Mon11/26/24 at 1700 Start: 10-20-2023 insulin lispro (HUMALOG KWIKPEN INSULIN) [...] in the MR contrast administration guidelines link. oxyCODONE hydrochloride 5 mg oral tablet (20 sources) Opioid Agonist Start: 11-30-19 End: 11-30-19 take 2 tablets by mouth every six hours as needed for pain oxyCODONE (Roxicodone) 5 MG immediate release tablet Indications: Chronic Pain Take 2 tablets (10 mg) by mouth every 6 hours as needed for severe pain (7-10). 8 tablet 11/29/2024 Active Start: 11-25-2024 End: 11-30-2024 take 1 tablet by mouth every six hours as needed for pain and pain 10 mg, Oral, Every 6 hours PRN, severe pain (7-10), moderate pain (4-6), Starting on 11/25/24 at 1719 Start: 10-20-2023 End: 10-27-2023 take 1 tablet by mouth every eight [...] pain. Take by mouth once d aily. pantoprazole 40 mg delayed release oral tablet (20 sources) Proton Pump Inhibitor Start: take 1 tablet by mouth once daily [...] above: Take 2 tablets by mo uth once daily for 4 doses. sodium polystyrene sulfonate 250 mg/ml oral suspension (2 sources) Start: 11-07-19 sodium polystyrene sulfonate, with sorbitol, (SPS, WITH SORBITOL,) 30-40 gram/120 mL enema liquid 30 g one time only. oral x 1 dose, mix 30g in 8oz h20 0 11/07/2023 Active sodium zirconium cyclosilicate 5000 mg powder for oral suspension (8 sources) Start: 07-17-19 25 End: 08-16-19 25 sodium zirconium cyclosilicate (LOKELMA) 5 gram oral [...] on above: Take 1 tablet by corinne twice daily for 10 days. Take 1 tablet by corinne th twice daily for 5 days. Completed/Discontinued Medications Medication Drug Class(es) Dates Sig (Normalized) Sig (Original) Acetaminophen (20 sources) Start: 11-25-2024 End: 11-30-2024 take 1 tablet by mouth every six hours as needed for pain and fever acetaminophen (Tylenol) tablet 650 mg Start: 10-20-2023 End: 01-24-2024 take 2 tablets by mouth every eight hours acetaminophen (TYLENOL) 500 mg tablet Take 2 tablets by mouth every 8 hours. 10/20/2023 01/24/2024 Discontinued Start: 09-16-2022 End: 05-23-2023 take 2 tablets by mouth every eight hours acetaminophen (TYLENOL) 500 mg tablet Take 2 tablets by mouth every 8 hours. 80 tablet 0 09/16/2022 05/23/2023 Discontinued End: 11-30-2024 take 1 tablet by mouth every six hours as needed for fever and pain and pain acetaminophen (Tylenol) 325 MG tablet Take 325 mg by mouth every 6 hours as needed for fever, mild pain (1-3) or moderate pain (4-6). 11/30/2024 Discontinued (Stop taking at discharge) Comment on above: Take 2 tablets by mo [facility] every 8 hours. atorvastatin 40 mg oral tablet (6 sources) HMG-CoA Reductase Inhibitor Start: 2 End: 2 take 1 tablet by mouth once daily at bedtime atorvastatin (LIPITOR) 40 mg tablet Take 1 tablet by mouth daily at bedtime. 30 tablet 0 01/26/2022 03/01/2022 Discontinued (Discontinued by Patient) Comment on above: Take 1 tablet by corinne daily at bedtime. benoxinate hydrochloride 4 mg/ml / fluorescein sodium 3 mg/ml ophthalmic solution (6 sources) Diagnostic Dye Start: 4 End: 4 fluorescein-benoxina te 0.3-0.4 % 1 Drop (FLURESS) Start: 12-29-2023 End: 12-30-2023 1 Drop, BOTH EYES, DIRECT ED, Starting on Mon12/29/23 at 1500, Until 12/30/23 at 0259, Administer for applanation tonometry. In the event of a Fluress shortage, administer [place]-Fluor 1 drop into both eyes as directed [...] sugars 3x/day (patient on insulin) 1 Each 10/06/2020 Suspended Start: 10-06-2020 Blood-Glucose Meter monitoring kit For monitoring sugars 3x/day (patient on insulin) 1 Each 10/06/2020 Active Comment on above: For monitoring sugar s 3x/day (patient on insulin) cholecalciferol 1.25 mg oral capsule (20 sources) Vitamin D Start: 023 End: 024 take 1 capsule by mouth every week cholecalciferol, Vitamin D3, (VITAMIN D3) 1,250 mcg (50,000 unit) cap capsule Indications: Vitamin D deficiency Take 1 capsule by mouth one time a week. 12 capsule 0 12/23/2022 05/23/2023 Discontinued Comment on above: Take 1 capsule by [facility] one time a week. cholecalciferol 9.52 unt/ml / glucose 357 mg/ml oral gel (2 sources) Vitamin D Start: End: 15 g, Oral, As needed, low blood sugar, Starting on Mon11/25/24 at 1717, If blood glucose less than 50 mg/dL and patient ALERT and NOT NPO, give 2 tubes glucose gel. If blood glucose less than 70 mg/dL and patient ALERT and NOT NPO, give 1 tube glucose gel. Repeat blood glucose in 15 minutes. If blood glucose is less than 70 mg/dL, repeat treatment and recheck blood glucose in 15 minutes x2 and notify provider. ciprofloxacin 3 mg/ml ophthalmic solution (20 sources) Quinolone Antimicrobial Start: take 1 drop(s) into the eye(s) four times daily ciprofloxacin HCl (CILOXAN) 0.3 % ophthalmic solution Use 1 Drop in the left eye four times daily. 5 mL 1 07/14/2022 Active Comment on above: Use 1 Drop in the le ft eye four times daily. clindamycin 300 mg oral capsule (3 sources) Lincosamide Antibacterial Start: End: take 1 capsule by mouth three times daily clindamycin (CLEOCIN) 300 mg capsule Indications: Abscess of neck Take 1 capsule by mouth three times daily. 30 capsule 0 09/20/2021 10/05/2021 Discontinued (Course of therapy completed) Comment on above: Take 1 capsule by [facility] three times daily. cyclobenzaprine hydrochloride 10 mg oral tablet (20 sources) Muscle Relaxant Start: End: take 5 mg by mouth three times daily 5 mg, Oral, 3 times daily, First dose on Mon11/26/24 at 2145 Start: 10-20-2023 take 1 tablet by [facility] three times daily as needed for muscle [...] as needed. 30 tablet 1 09/02/2022 Active take 5 mg by mouth t hree times daily as needed for muscle spasms cyclobenzaprine (Flexeril) 10 MG tablet Take 5 mg by mouth 3 times daily as needed for muscle spasms. Active Comment on above: Take 1 tablet by corinne th at bedtime as needed. Take 1 tablet by corinne th three times daily as needed for muscle spasm. Take 1 tablet by corinne th three times a day as needed for muscle spasm. diazePAM 10 mg oral tablet (20 sources) Benzodiazepine Start: 11-26-2024 End: 11-30-2024 take 1 tablet by mouth every eight hours as needed for anxiety 10 mg, Oral, Every 8 hours PRN, anxiety, Starting on Mon11/26/24 at 2130 Start: 11-07-2023 take 1 tablet by corinne th every twelve hours as needed diazePAM (VALIUM) 10 mg tablet Take 10 mg by mouth two times a day as needed for anxiety. 11/07/2023 Active 0.5 ml dulaglutide 3 mg/ml auto-injector (20 sources) GLP-1 Receptor Agonist Start: 08-11-2021 End: 04-13-2022 inject 1.5 mg by subcutaneous injection every week dulaglutide (TRULICITY) 1.5 mg/0.5 mL pen injector Indications: Diabetes mellitus due to underlying condition, uncontrolled, with hyperglycemia (HCC) Inject 1.5 mg subcutaneously one time a week. 4 Each 03/01/2022 04/13/2022 Discontinued (Changing Therapy/Dosage Form) Start: 07-05-2021 End: 08-11-2021 inject 0.75 mg by subcutaneous injection every week dulaglutide (TRULICITY) 0.75 mg/0.5 mL pen injector Indications: Diabetes mellitus due to underlying condition, uncontrolled, with hyperglycemia (HCC) Inject 0.75 mg subcutaneously one time a week. 30 Each 07/05/2021 08/11/2021 Discontinued (Changing Therapy/Dosage Form) Comment on above: Inject 0.75 mg subcu taneously one time a week. Inject 1.5 mg subcut aneously one time a week. dulaglutide (TRULICITY) 3 mg/0.5 mL pen injector (7 sources) Start: End: 023 inject 3 mg by subcutaneous injection every week dulaglutide (TRULICITY) 3 mg/0.5 mL pen injector Inject 3 mg subcutaneously one time a week. 4 Each 04/13/2022 05/18/2022 Discontinued (Changing Therapy/Dosage Form) Start: 04-13-2022 inject 3 mg by subcu taneous injection every week dulaglutide (TRULICITY) 3 mg/0.5 mL pen injector Inject 3 mg subcutaneously one time a week. 4 Each 04/13/2022 Active Comment on above: Inject 3 mg subcutan eously one time a week. dulaglutide (TRULICITY) 4.5 mg/0.5 mL pen injector (20 sources) Start: 023 End: 024 inject 4.5 mg by subcutaneous injection every [...] time a week. 12 Each 0 06/29/2022 Active Start: 05-18-2022 End: 06-29-2022 inject [...] one time a week. 4 Each 1 05/18/2022 Active Comment on above: Inject 4.5 mg subcut aneously one time a week. glucagon (rdna) 1 mg injection (2 sources) Antihypoglycemic Agent Start: 11-25-2024 End: 11-30-2024 1 mg, IntraMUSCular, PRN, low blood sugar, Blood glucose less than 70 mg/dL and patient NOT ALERT or NPO and does not have IV access., Starting on Mon11/25/24 at 1717, After administration, attempt intravenous access and start D5W at 100 mL/hr. Repeat blood glucose in 15 minutes x2 and notify provider. 50 ml glucose 50 mg/ml injection (4 sources) Start: 11-25-2024 End: 11-30-2024 100 mL/hr, IntraVENous, PRN, Blood sugar less than 70mg/dL, Starting on Mon11/25/24 at 1717, Start infusion following administration of dextrose 50% or glucagon. Start: 11-25-2024 End: 11-30-2024 12.5 g, IntraVENous, PRN, lo w blood sugar, Blood glucose less than 70 mg/dL and patient NOT ALERT or NPO., Starting on Mon11/25/24 at 1717, If patient does not respond within 5 minutes, repeat dose x1. Start D5W at 100 mL/hour until ordering provider can be reached. Repeat blood glucose in 15 minutes. If blood glucose is less than 70 mg/dL, repeat treatment and recheck blood glucose in 15 minutes x2. If using Glucostabilizer, dose as instructed per system. 1 ml heparin sodium, porcine 1000 unt/ml injection (13 sources) Unfractionated Heparin, Anti-coagulant Start: 11-29-2024 End: 11-30-2024 1,200-2,000 Units, IntraCATHeter, As needed, line care, For hemodialysis system down vascular catheter, Starting on Mon11/29/24 at 1242, To ARTERIAL lumen. Use when system down. Dose based on lumen volume: 1,200 units = 1.2 mL 1,400 units = 1.4 mL 1,500 units = 1.5 mL 1,600 units = 1.6 mL 1,700 units = 1.7 mL 1,800 units = 1.8 mL 2,000 units = 2 mL Start: 11-29-2024 End: 11-30-2024 1,800 Units, IntraCATHeter, PRN, line care, Starting on Mon11/29/24 at 1144 Start: 11-25-2024 End: 11-30-2024 inject 1 dose by subcutaneous injection twice daily 5,000 Units, SubCUTAneous, Every 12 hours scheduled (2 times per day), First dose on Mon11/25/24 at 2100 Start: 07-24-2024 heparin 1,000 unit/mL soln Inject 3.6 mL intravenously as needed (To close HD catheter. Fill each lumen to prescribed volume.). 07/24/2024 Active hydrALAZINE hydrochloride 50 mg oral tablet (20 sources) Arteriolar Vasodilator Start: 11-25-2024 End: 11-30-2024 take 50 mg by mouth twice daily 50 mg, Oral, 2 times daily, First dose on Mon11/25/24 at 2100 Start: 07-15-2024 End: 08-14-2024 take 1 tablet by mouth twice daily hydrALAZINE (APRESOLINE) 50 mg tablet Take 1 tablet by mouth two times a day. 60 tablet 07/15/2024 08/14/2024 Active Start: 10-20-2023 take 1 tablet by corinne th twice [...] by corinne th two times a day. hydroCHLOROthiazide 12.5 mg oral tablet (1 source) Thiazide Diuretic Start: take 1 tablet by mouth once daily hydroCHLOROthiazide (HYDRODIURIL, ESIDRIX) 12.5 mg tablet Take 1 tablet by mouth once daily. 30 tablet 0 04/25/2021 Active Comment on above: Take 1 tablet by corinne th once daily. isopropyl alcohol 0.7 ml/ml medicated pad (20 sources) Start: 023 alcohol swabs (ALCOHOL PREP PADS) Indications: Diabetes [...] (20 sources) Angiotensin Converting Enzyme Inhibitor Start: 3 End: take 1 tablet by mouth once daily lisinopril (ZESTRIL) 5 mg tablet Indications: Hypertension, essential Take 1 tablet by mouth once daily. 30 tablet 1 12/23/2022 05/23/2023 Discontinued Start: 09-16-2022 End: 05-23-2023 take 1 tablet by mouth once daily lisinopril (ZESTRIL) 10 mg tablet Indications: Hypertension, essential Take 1 tablet by mouth once daily. 90 tablet 0 11/04/2022 05/23/2023 Discontinued Start: 03-29-2023 take 1.5 tablets by mouth once daily [...] by corinne th twice daily with meals. 1 ml naloxone hydrochloride 0.4 mg/ml injection (2 sources) Opioid Antagonist Start: 025 End: 0.4 mg, IntraVENous, Every 5 min PRN, opioid reversal, respiratory depression, Starting on 11/25/24 at 1724, +++ For RR ondansetron 4 mg oral tablet (20 sources) Serotonin-3 Receptor Antagonist Start: 022 End: take 1 tablet by mouth every [...] every 8 hours as needed for nausea/vomiting. ondansetron ODT (Zofran-ODT) disintegrating tablet 4 mg (2 sources) Start: End: take 1 tablet by mouth every eight hours as needed for nausea and vomiting ondansetron ODT (Zofran-ODT) disintegrating tablet 4 mg phenylephrine hydrochloride 25 mg/ml ophthalmic solution (5 sources) alpha-1 Adrenergic Agonist Start: End: PHENYLephrine 2.5 % 1 Drop (AK-DILATE, MARILYN-SYNEPHRINE) [...] corinne th once daily. polyethylene glycol 3350 59091 mg powder for oral solution (20 sources) Osmotic Laxative Start: 11-26-19 End: 12-01-19 take 17 g by mouth every twenty-four hours as needed for constipation 17 g, Oral, Daily PRN, constipation, Starting on Mon11/25/24 at 1721, 1st line for treatment of constipation - give scheduled if no bowel movement in past 24 hours. Start: 10-21-2023 End: 01-24-2024 polyethylene glycol 3350 [...] one time a week. 07/10/2024 Discontinued sennosides, halfway 8.6 mg oral tablet (20 sources) Start: End: take 1 tablet by mouth once daily senna (SENOKOT) 8.6 mg tab Take 1 tablet by mouth once daily. 05/27/2023 07/10/2024 Discontinued Start: 09-16-2022 take 1 capsule by [facility] once daily Sennosides (SENNA) 8.6 mg cap Take 1 capsule by mouth once daily. 30 capsule 0 09/16/2022 Suspended Comment on above: Take 1 capsule by mo [facility] once daily. Take 1 tablet by [facility] once daily. 50 ml sodium chloride 9 mg/ml injection (20 sources) Start: 11-25-2024 End: 11-26-2024 take 75 mL intravenously every hour 75 mL/hr, IntraVENous, Continuous, Starting on Mon11/25/24 at 1725, For 15 hours Start: 10-13-2022 End: 01-12-2024 sodium chloride 0.9 % (flush ) 10 mL (BD POSIFLUSH) tamsulosin hydrochloride 0.4 mg oral capsule (20 sources) alpha-Adrenergic Meghan Start: 01-26-2022 End: 05-23-2023 take 1 capsule by mouth once daily [...] Comment on above: Take 1 capsule by [facility] once daily. tropicamide 10 mg/ml [...] tropicamide 1 % 1 Drop (MYDR IACYL) vancomycin (Vancocin) 2500 m g in 0.9% sodium chloride 500 mL IVPB (compounded premix) (2 sources) Start: 11-25-2024 End: 11-25-2024 vancomycin (Vancocin) 750 mg in sodium chloride 0.9 % 250 mL IVPB (4 sources) Start: 11-27-2024 End: 11-28-2024 Start: 11-26-2024 End: 11-26-2024 vancomycin (Vancocin) intermittent dosing (placeholder) (2 sources) Start: 11-26-2024 End: 11-30-2024 Other, See admin instructions, Starting on Mon11/26/24 at 0724, Placeholder for vancomycin pulse dosing. Pharmacy will order one-time doses based on random levels. 24 hr venlafaxine 75 mg extended release oral capsule (6 sources) Serotonin and Norepinephrine Reuptake Inhibitor Start: 01-27-2022 End: 03-01-2022 take 1 capsule by mouth once daily at breakfast venlafaxine ER (EFFEXOR XR) 75 mg 24 hr capsule Take 1 capsule by mouth daily with breakfast. 30 capsule 0 01/27/2022 03/01/2022 Discontinued (Discontinued by Patient) Comment on above: Take 1 capsule by mo [facility] daily with breakfast. Problems Active Problems Problem [...] of acute ischemic heart disease] 10-13-2022 Chronic Diabetes mellitus with complications (20 sources) Peripheral [...] disease, with long-term current use of insulin ([facility])] Onset: 2 Diseases of mouth; excluding dental [...] (from) other stairs and steps, initial encounter] Heart valve disorders (20 sources) Tricuspid valve [...] malignant neoplasm] Episodic Other aftercare (3 sources) nursing home (current) use of insulin; Translations: [Type 2 [...] Onset: 1 Chronic Other nervous system disorders (4 sources) Chronic pain syndrome; Translations: [Chronic pain syndrome] Onset: 5 12-23-2022 Chronic Other nervous system disorders (1 source) Pain due to neoplastic disease; 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)] 12-23-2022 Chronic Other nervous system disorders (1 source) Chronic pain syndrome; Translations: [Chronic pain syndrome] Onset: 5 Chronic Other nervous system disorders (2 sources) Tremor; Translations: [Tremor, unspecified] 11-25-2024 Episodic Other nervous system disorders (2 sources) Tremor, unspecified; Translations: [Tremor, unspecified] Onset: 5 Episodic Other non-traumatic joint disorders (1 source) Shoulder [...] II, BMI 35-39.9] Onset: 0 02-20-2020 Other screening for suspected conditions (not mental disorders or infectious disease) (19 sources) Viral screening status; Translations: [Serum creatinine raised] Onset: 2 Episodic Other skin disorders (2 sources) Hidradenitis suppurativa; [...] Translations: [Disorientation, unspecified] Onset: 5 07-20-2024 Episodic Residual codes; unclassified (6 sources) Chill; Translations: [Chills (without fever)] Onset: 5 11-25-2024 Episodic Residual codes; unclassified (2 sources) History of renal failure; Translations: [Family history of disorders of kidney and ureter] 11-25-2024 Episodic Residual codes; unclassified (2 sources) Chills (without fever); Translations: [Chills (without fever)] Onset: Episodic Residual codes; unclassified (2 sources) Family history of disorders of kidney and ureter; Translations: [Family history of disorders of kidney and ureter] Onset: 5 Episodic Retinal detachments; defects; vascular occlusion; and [...] [Dizziness] Onset: 02-20-2021 Resolved: 05-25-2023 02-20-2021 Episodic Deficiency and other anemia (2 sources) Anemia, unspecified; Translations: [Anemia, unspecified] Onset: 09-16-2024 Episodic Diabetes mellitus without complication (20 sources) Glycosuria; Translations: [Hyperglycemia] Onset: 01-18-2022 Resolved: 05-25-2023 01-18-2022 Episodic Fluid and electrolyte disorders (20 sources) Hyperkalemia; Translations: [Hyperkalemia] Onset: 01-17-2022 Resolved: 06-13-2023 Episodic Genitourinary symptoms and ill-defined conditions (20 sources) Microalbuminuria; Translations: [Dysuria] Onset: 02-20-2020 Resolved: 01-17-2022 02-20-2020 Episodic Glaucoma (20 sources) Preglaucoma, unspecified, bilateral; Translations: [Preglaucoma, unspecified] Onset: 08-05-2022 Resolved: 05-25-2023 Chronic Malaise and fatigue (20 [...] unspecified] Onset: 05-25-2023 Resolved: 06-11-2023 06-11-2023 Chronic Residual codes; unclassified (20 sources) History of [...] Test Name Value Interpretation Reference Range Facility Basic Metabolic Profile (BMP )on 01-15-2025 BUN/CRE 9.1 RATIO Low 01-20 [facility] Comment on above: Order Comment: 412.2 Performed By: #### L 100.0500, L500.2500 #### [facility] [address] [place], [address] Calcium [Mass/Vol] 8.9 mg/dL Normal 7.6-11.0 [facility] Comment on above: Order Comment: 412.2 Performed By: #### L 100.0500, L500.2500 #### [facility] [address] [place], [address] Chloride [Moles/Vol] 100 mmol/L Normal 98-108 [facility] Comment on above: Order Comment: 412.2 Performed By: #### L 100.0500, L500.2500 #### [facility] [address] [place], [address] CO2 [Moles/Vol] 27.9 mmol/L Normal 21.0-32.0 [facility] Comment on above: Order Comment: 412.2 Performed By: #### L 100.0500, L500.2500 #### [facility] [address] [place], [address] Creatinine [Mass/Vol] 5.60 mg/dL High 0.70-1.20 [facility] Comment on above: Order Comment: 412.2 Performed By: #### L 100.0500, L500.2500 #### [facility] [address] [place], [address] GAP 12 Normal 5-15 [facility] Comment on above: Order Comment: 412.2 Performed By: #### L 100.0500, L500.2500 #### [facility] [address] [place], [address] GFR/1.73 sq M.predicted among non-blacks MDRD (S/P/Bld) [Vol rate/Area] 11 mL/min/{1.73_m2} Low >60 [facility] Comment on above: Order Comment: 412.2 Result Comment: mL/m in/1.73m2 CKD-EPI Creatinine Equation (2020) Performed By: #### L 100.0500, L500.2500 #### [facility] [address] [place], [address] Glucose [Mass/Vol] 217 mg/dL High 70-99 [facility] Comment on above: Order Comment: 412.2 Performed By: #### L 100.0500, L500.2500 #### [facility] [address] [place], [address] Potassium [Moles/Vol] 4.7 mmol/L Normal 3.3-5.1 [facility] Comment on above: Order Comment: 412.2 Performed By: #### L 100.0500, L500.2500 #### [facility] [address] [place], [address] Sodium [Moles/Vol] 140 mmol/L Normal 133-145 [facility] Comment on above: Order Comment: 412.2 Performed By: #### L 100.0500, L500.2500 #### [facility] [address] [place], [address] Urea nitrogen [Mass/Vol] 51 mg/dL High 4-19 [facility] Comment on above: Order Comment: 412.2 Performed By: #### L 100.0500, L500.2500 #### [facility] [address] [place], [address] CBC-Complete Blood Cnt No Di ffon 01-15-2025 Erythrocyte distribution width (RBC) [Ratio] 13.1 % Normal 11.6-14.6 [facility] Comment on above: Order Comment: 412.2 Performed By: #### L 100.0500, L500.2500 #### [facility] [address] [place], [address] Hematocrit (Bld) [Volume fraction] 26.2 % Low 40-54 [facility] Comment on above: Order Comment: 412.2 Performed By: #### L 100.0500, L500.2500 #### [facility] [address] [place], [address] Hemoglobin (Bld) [Mass/Vol] 8.3 g/dL Low 13.0-16.5 [facility] Comment on above: Order Comment: 412.2 Performed By: #### L 100.0500, L500.2500 #### [facility] [address] [place], [address] MCH (RBC) [Entitic mass] 29.7 pg Normal 27.0-32.0 [facility] Comment on above: Order Comment: 412.2 Performed By: #### L 100.0500, L500.2500 #### [facility] [address] [place], [address] MCHC (RBC) [Mass/Vol] 31.7 g/dL Low 32-36 [facility] Comment on above: Order Comment: 412.2 Performed By: #### L 100.0500, L500.2500 #### [facility] [address] [place], [address] MCV (RBC) [Entitic vol] 93.9 fL Normal 80-94 [facility] Comment on above: Order Comment: 412.2 Performed By: #### L 100.0500, L500.2500 #### [facility] [address] [place], [address] Platelet mean volume (Bld) [Entitic vol] 9.7 fL Normal 6.2-12.0 [facility] Comment on above: Order Comment: 412.2 Performed By: #### L 100.0500, L500.2500 #### [facility] [address] [place], [address] Platelets (Bld) [#/Vol] 225 10*3/uL Normal 150-450 [facility] Comment on above: Order Comment: 412.2 Performed By: #### L 100.0500, L500.2500 #### [facility] [address] [place], [address] RBC (Bld) [#/Vol] 2.79 10*6/uL Low 4.6-6.2 [facility] Comment on above: Order Comment: 412.2 Performed By: #### L 100.0500, L500.2500 #### [facility] [address] [place], [address] RDW SD 45.1 fl High 35.1-43.9 [facility] Comment on above: Order Comment: 412.2 Performed By: #### L 100.0500, L500.2500 #### [facility] [address] [place], [address] WBC (Bld) [#/Vol] 7.2 10*3/uL Normal 4.4-11.0 [facility] Comment on above: Order Comment: 412.2 Performed By: #### L 100.0500, L500.2500 #### [facility] [address] 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 Dudley, is referring patient to Dr. Alatorre for fistula placement. Patient's care facility is going to reach out to schedule appointment. Dr. Dudley's office is requesting information from patient's future appointments with Dr. Alatorre to be faxed to them at: [phone] attn: dialysis. Thank you Allergies As of Date: 12/24/2024 Noted Allergy Reaction PENICILLINS 07/24/2020 16 - Unknown Comments: Pt states he thinks he had a reaction as a child Date Reviewed: 07/24/2024 Reviewed by: Trudy Coates, RN - Fully Assessed Prescriptions as of 12/24/2024 - heparin 1,000 unit/mL soln Inject 3.6 mL intravenously as needed (To close HD catheter. Fill each lumen to prescribed volume.). - doxazosin (CARDURA) 2 mg tablet Take [...] 3/16" ndle 1 Applicator four times daily. Meds Comments as of 11/15/2023: SEE EMAR FOR MEDICATIONS TAKEN LAST 04/19/21 07/31/20 The medications are managed by this patient by: PATIENT Nusrat Lewis, OA 11/08/[address] Scott: "Patient to continue to use the SSI only, no regular scheduled Insulin dosing at this time." Patient's sister has been notified and verbalizes understanding." Richard Hinds RN Problem List As Of Date 12/24/2024 Noted Resolved Vitamin D deficiency [E55.9] 02/20/2020 [...] [N17.9] 03/30/2022 06/11/2023 Nausea and vomiting [R11.2] (more content not included)... Normal [facility] [id number] 11-29-2024 [id number] Fdc/SNF - R eturn [facility] [address] [facility] [id number] Returning to Facility [facility] [phone] Next Site of Care Admission Date: 11/25/2024 12:06 PM Patient Name: JOSÉ MANUEL ASHTON Location: [address]/[facility] [id number] A Date of : 1960 -- Placement Information -- Referral Type:Fdc/SNF - Return Referral ID:[id number] Provider Name:[facility] Address 1:[address] Address 2: City:[place] Selection Factors:Returning to Facility State:[place] [facility] [phone] Confirmed pickup corrina e of 330PM by transport [employer] at phone number [phone]. Location of facility drop off is [facility]. Facility notified via [employer], TCC notified on secure chat. [facility] [phone] Transport requested 330 in [employer]. Awaiting time confirmation. [facility] [phone] Discharge med list transmitted to [facility] TO [facility] via [employer] per TCC request. [facility] [phone] Sent updated notes t o [facility] via [employer] per TCC request. Await review and response regarding ability to accept. TCC notified. [facility] CBC W Auto Differential pane l (Bld)on 11-29-2024 Basophils (Bld) [#/Vol] 0 10*3/uL 0.0 - 0.2 10*3/[facility]L [facility]/100 WBC (Bld) 0.4 % 0.0 - 2.0 % Eosinophils (Bld) [#/Vol] 0.4 10*3/uL 0.0 - 0.5 10*3/uL Eosinophils/100 WBC (Bld) 7.2 % High 0.0 - 6.0 % [facility] Erythrocyte distribution width (RBC) [Ratio] 12.8 % 11.5 - 15.0 % Hematocrit (Bld) [Volume fraction] 26.1 % Low 40.0 - 52.0 % Hemoglobin (Bld) [Mass/Vol] 8.2 g/dL Low 13.0 - 18.0 g/dL Immature granulocytes (Bld) [#/Vol] 0.1 10*3/uL High NINF - 0.1 10*3/uL [facility] Immature granulocytes/100 WBC (Bld) 1.7 % 0.0 - 2.0 % Interpretation and review of laboratory results Abnormal Lymphocytes (Bld) [#/Vol] 1.5 10*3/uL 1.0 - 4.3 10*3/uL Lymphocytes/100 WBC (Bld) 28.5 % 15.0 - 45.0 % MCH (RBC) [Entitic mass] 29.4 pg 26.0 - 34.0 pg MCHC (RBC) [Mass/Vol] 31.4 % 30.5 - 36.0 % MCV (RBC) [Entitic vol] 93.5 fL 77.0 - 99.0 fL Monocytes (Bld) [#/Vol] 0.6 10*3/uL 0.0 - 0.9 10*3/uL Monocytes/100 WBC (Bld) 11.8 % 5.0 - 13.0 % Neutrophils (Bld) [#/Vol] 2.6 10*3/uL 1.8 - 7.5 10*3/uL Neutrophils/100 WBC (Bld) 50.4 % 38.0 - 82.0 % Nucleated RBC/100 WBC (Bld) [Ratio] 0 % [facility] Platelet mean volume (Bld) [Entitic vol] 8.7 fL Low 9.0 - 12.7 fL Platelets (Bld) [#/Vol] 222 10*3/uL 140 - 440 10*3/uL RBC (Bld) [#/Vol] 2.79 10*6/uL Low 4.40 - 5.9 0 10*6/uL WBC (Bld) [#/Vol] 5.2 10*3/uL 3.6 - 10.7 10*3/uL [facility] CBC WITH AUTO DIFFERENTIALon 11-29-2024 Basophils (Bld) [#/Vol] 0.0 10*3/uL Normal 0.0-0.2 [facility] Comment on above: Performed By: #### L [id number] ####Band Machine Operator: JAQUELIN MO ([id number])[facility] [place] ([facility])[address] Basophils/100 WBC (Bld) 0.4 % Normal 0.0-2.0 [facility] Comment on above: Performed By: #### L [id number] ####Band Machine Operator: JAQUELIN MO ([id number])[facility] ([facility])[address] [place] [address] Eosinophils (Bld) [#/Vol] 0.4 10*3/uL Normal 0.0-0.5 [facility] Comment on above: Performed By: #### L [id number] ####Band Machine Operator: JAQUELIN MO ([id number])[facility] ([facility])[address] [place] [address] Eosinophils/100 WBC (Bld) 7.2 % High 0.0-6.0 [facility] Comment on above: Performed By: #### L [id number] ####Band Machine Operator: JAQUELIN MO ([id number])[facility] [place] ([facility])[address] [place] [address] Erythrocyte distribution width (RBC) [Ratio] 12.8 % Normal 11.5-15.0 [facility] Comment on above: Performed By: #### L [id number] ####Band Machine Operator: JAQUELIN MO ([id number])[facility] [place] ([facility])[address] [place] [address] Hematocrit (Bld) [Volume fraction] 26.1 % Low 40.0-52.0 [facility] Comment on above: Performed By: #### L [id number] ####Band Machine Operator: JAQUELIN MO ([id number])[facility] ([facility])[address] Hemoglobin (Bld) [Mass/Vol] 8.2 g/dL Low 13.0-18.0 [facility] Comment on above: Performed By: #### L [id number] ####Band Machine Operator: JAQUELNI MO ([id number])[facility] [place] ([facility])[address] IMMATURE GRANS % 1.7 % Normal 0.0-2.0 [facility] Comment on above: Performed By: #### L [id number] ####Band Machine Operator: JAQUELIN MO ([id number])[facility] ([facility])[address] IMMATURE GRANS ABSOLUTE 0.1 10*3/uL High <0.1 [facility] Comment on above: Performed By: #### L [id number] ####Band Machine Operator: JAQUELIN MO ([id number])[facility] ([facility])[address] Lymphocytes (Bld) [#/Vol] 1.5 10*3/uL Normal 1.0-4.3 [facility] Comment on above: Performed By: #### L [id number] ####Band Machine Operator: JAQUELIN MO ([id number])[facility] ([facility])[address] Lymphocytes/100 WBC (Bld) 28.5 % Normal 15.0-45.0 [facility] Comment on above: Performed By: #### L [id number] ####Band Machine Operator: JAQUELIN MO ([id number])[facility] [place] ([facility])[address] MCH (RBC) [Entitic mass] 29.4 pg Normal 26.0-34.0 [facility] Comment on above: Performed By: #### L [id number] ####Band Machine Operator: JAQUELIN MO ([id number])[facility] ([facility])[address] MCHC 31.4 % Normal 30.5-36.0 [facility] Comment on above: Performed By: #### L [id number] ####Band Machine Operator: JAQUELIN RASCONYOEL ([id number])[facility] ([facility])[address] MCV (RBC) [Entitic vol] 93.5 fL Normal 77.0-99.0 [facility] Comment on above: Performed By: #### L [id number] ####Band Machine Operator: JAQUELIN MO ([id number])[facility] [place] ([facility])[address] Monocytes (Bld) [#/Vol] 0.6 10*3/uL Normal 0.0-0.9 [facility] Comment on above: Performed By: #### L [id number] ####Band Machine Operator: JAQUELIN MO ([id number])[facility] [place] ([facility])[address] Monocytes/100 WBC (Bld) 11.8 % Normal 5.0-13.0 [facility] Comment on above: Performed By: #### L [id number] ####Band Machine Operator: JAQUELIN MO ([id number])[facility] [place] ([facility])[address] NEUTROPHILS ABSOLUTE 2.6 10*3/uL Normal 1.8-7.5 [facility] Comment on above: Performed By: #### L [id number] ####Band Machine Operator: JAQUELIN MO ([id number])[facility] [place] ([facility])[address] Neutrophils/100 WBC (Bld) 50.4 % Normal 38.0-82.0 [facility] Comment on above: Performed By: #### L [id number] ####Band Machine Operator: JAQUELIN MO ([id number])[facility] ([facility])[address] NRBC 0.0 /100 WBCs Normal 0.0-2.0 [facility] Comment on above: Performed By: #### L [id number] ####Band Machine Operator: JAQUELIN MO ([id number])[facility] ([facility])[address] Platelet mean volume (Bld) [Entitic vol] 8.7 fL Low 9.0-12.7 [facility] Comment on above: Performed By: #### L [id number] ####Band Machine Operator: JAQUELIN MO ([id number])[facility] ([facility])[address] Platelets (Bld) [#/Vol] 222 10*3/uL Normal 140-440 [facility] Comment on above: Performed By: #### L [id number] ####Band Machine Operator: JAQUELIN MO ([id number])[facility] ([facility])[address] RBC (Bld) [#/Vol] 2.79 10*6/uL Low 4.40-5.90 [facility] Comment on above: Performed By: #### L [id number] ####Band Machine Operator: JAQUELIN MO ([id number])[facility] ([facility])[address] WBC (Bld) [#/Vol] 5.2 10*3/uL Normal 3.6-10.7 [facility] Comment on above: Performed By: #### L [id number] ####Band Machine Operator: JAQUELIN MO ([id number])[facility] ([facility])[address] COMPREHENSIVE METABOLIC PANE Tommie 11-29-2024 Albumin [Mass/Vol] 2.7 g/dL Low 3.4-4.8 [facility] Comment on above: Performed By: #### L [id number] ####Band Machine Operator: JAQUELIN MO ([id number])[facility] ([facility])[address] ALP [Catalytic activity/Vol] 109 U/L Normal 40-150 [facility] Comment on above: Performed By: #### L AB17 ####Band Machine Operator: JAQUELIN MO ([id number])[facility] ([facility])[address] [place] [address] [place] ALT [Catalytic activity/Vol] 36 U/L Normal <40 [facility] Comment on above: Performed By: #### L AB17 ####Band Machine Operator: JAQUELIN MO ([id number])[facility] ([facility])[address] Anion gap [Moles/Vol] 9 mmol/L Normal 3-13 [facility] Comment on above: Performed By: #### L AB17 ####Band Machine Operator: JAQUELIN MO ([id number])[facility] ([facility])[address] AST [Catalytic activity/Vol] 22 U/L Normal <34 [facility] Comment on above: Performed By: #### L AB17 ####Band Machine Operator: JAQUELIN MO ([id number])[facility] ([facility])[address] Bilirubin [Mass/Vol] 0.3 mg/dL Normal <1.2 [facility] Comment on above: Performed By: #### L AB17 ####Band Machine Operator: JAQUELIN MO ([id number])[facility] ([facility])[address] Calcium [Mass/Vol] 8.9 mg/dL Normal 8.8-10.0 [facility] Comment on above: Performed By: #### L AB17 ####Band Machine Operator: JAQUELIN MO ([id number])[facility] ([facility])[address] [place] [address] [place] Chloride [Moles/Vol] 109 mmol/L High 98-107 [facility] Comment on above: Performed By: #### L AB17 ####Band Machine Operator: JAQUELIN MO ([id number])[facility] CO2 [Moles/Vol] 26 mmol/L Normal 23-31 [facility] Comment on above: Performed By: #### L AB17 ####Band Machine Operator: JAQUELIN MO ([id number])[facility] ([facility])[address] Creatinine [Mass/Vol] 5.79 mg/dL High 0.72-1.25 [facility] Comment on above: Performed By: #### L AB17 ####Band Machine Operator: JAQUELIN MO ([id number])[facility] ([facility])[address] GLOMERULAR FILTRATION RATE ML/MIN/1.73 SQ M.PREDICTED 10.2 mL/min/1.73m*2 Low >60.0 [facility] Comment on above: Result Comment: Calc ulation based on the Chronic Kidney Disease Epidemiology Collaboration (CKD-EPI) equation refit without adjustment for race Performed By: #### L AB17 ####Band Machine Operator: JAQUELIN MO ([id number])[facility] ([facility])[address] [place] [address] [place] Glucose [Mass/Vol] 166 mg/dL High 82-115 [facility] Comment on above: Performed By: #### L AB17 ####Band Machine Operator: JAQUELIN MO ([id number])[facility] ([facility])[address] [place] [address] [place] Potassium [Moles/Vol] 5.1 mmol/L Normal 3.5-5.1 [facility] Comment on above: Result Comment: [facility] potassium values may be up to 0.5 mmol/L lower than serum values. Performed By: #### L AB17 ####Band Machine Operator: JAQUELIN MO ([id number])[facility] ([facility])[address] Protein [Mass/Vol] 5.9 g/dL Low 6.4-8.3 [facility] Comment on above: Performed By: #### L AB17 ####Band Machine Operator: JAQUELIN MO ([id number])[facility] ([facility])[address] Sodium [Moles/Vol] 144 mmol/L Normal 136-145 [facility] Comment on above: Performed By: #### L AB17 ####Band Machine Operator: JAQUELIN MO ([id number])[facility] ([facility])[address] Urea nitrogen [Mass/Vol] 58 mg/dL High 9-23 [facility] Comment on above: Performed By: #### L AB17 ####Band Machine Operator: JAQUELIN MO ([id number])[facility] ([facility])[address] Comprehensive metabolic 1998 panelon 11-29-2024 Albumin [Mass/Vol] 2.7 g/dL Low 3.4 - 4.8 g/dL ALP [Catalytic activity/Vol] 109 U/L 40 - 150 U/L ALT [Catalytic activity/Vol] 36 U/L NINF - 40 U/L Anion gap [Moles/Vol] 9 mmol/L 3 - 13 mmol/L AST [Catalytic activity/Vol] 22 U/L NINF - 34 U/L Bilirubin [Mass/Vol] 0.3 mg/dL NINF - 1.2 mg/dL Calcium [Mass/Vol] 8.9 mg/dL 8.8 - 10. 0 mg/dL Chloride [Moles/Vol] 109 mmol/L High 98 - 10 7 mmol/L CO2 [Moles/Vol] 26 mmol/L 23 - 31 mmol/L Creatinine [Mass/Vol] 5.79 mg/dL High 0.72 - 1.25 mg/dL GFR/1.73 sq M.predicted (S/P/Bld) [Vol rate/Area] 10.2 mL/min Low - [facility] Comment on above: Calculation based on the Chronic Kidney Disease Epidemiology Collaboration (CKD-EPI) equation refit without adjustment for race Glucose [Mass/Vol] 166 mg/dL High 82 - 115 mg/dL Interpretation and review of laboratory results Abnormal Potassium [Moles/Vol] 5.1 mmol/L 3.5 - 5.1 mmol/L Comment on above: Plasma potassium reji ues may be up to 0.5 mmol/L lower than serum values. Protein [Mass/Vol] 5.9 g/dL Low 6.4 - 8.3 g/dL Sodium [Moles/Vol] 144 mmol/L 136 - 145 mmol/L Urea nitrogen [Mass/Vol] 58 mg/dL High 9 - 23 mg/dL [facility] Laboratory - Chemistry and C hemistry - challengeon 11-29-2024 Glucose [Mass/Vol] 196 mg/dL High 70 - 100 mg/dL Glucose [Mass/Vol] 140 mg/dL High 70 - 100 mg/dL No Panel Informationon 11-29 Interpretation and review of laboratory results Abnormal Performed by: [facility] [address] [place] [id number] CLIA ID: [id number] [facility] Interpretation and review of laboratory results Abnormal Performed by: [facility], [address] [place] [id number] CLIA ID: [id number] [facility] Nursing Noteon 11-29-2024 Nursing Note 2.4L removed with tx , UF goal adjusted for BP Tolerated well Patient Name: José Manuel Ashton Patient : 1960 Acct: [id number] Date of Admission: 11/25/2024 Room[facility]: [facility] A Code Status: Full Code Allergies: Allergies[1] Diagnosis: Problem List[2] Treatment: Hemodialysis 1:1 Priority: Routine Location: Bedside Diabetic: Yes NPO: No Isolation Precautions: Dialysis Consent for Treatment Verified: Yes Blood Consent Verified: Not Applicable ICEBOAT: Identify, Consent, Equipment, HepB Status, Orders Complete, Access Verified, Timeliness Second Clinician Verifying: Osiel Orozco RN Time out performed prior to access at 0932. Report Received from Primary RN at 0803. Primary RN (First Initial, Last Name, Title): Osiel Orozco RN Incapacitated Nurse Education Completed: Yes HBsAg ONLY: Date Drawn: November 27, 2024 Results: Negative HBsAb: Date Drawn: November 27, 2024 Results: Susceptible <10 Order Dialyzer: Nipro Na+ Modeling: Not Applicable Dialysate Temperature (C): 36 Blood Flow Rate (BFR): 350 Dialysate Flow Rate (DFR): 600 Access to be Utilized Access: Tunneled Catheter Location: Subclavian Side: Right Needle gauge: Not Applicable + Bruit/Thrill: Not Applicable First Use X-ray Verified: Not Applicable OK to use line order: Not Applicable Site Assessment: Signs and Symptoms of Infection/Inflammation: None If yes: Not Applicable Dressing: Dry and Intact Site Prep: Medical Aseptic Technique Dressing Changed this Treatment: No If yes, by whom: NA - not changed today Date of Last Dressing Change: November 27, [address]?: Yes Red Alcohol Caps in place?: Yes Gauze Dressing?: No Non-Dialysis Use?: No Comment: Flows: Lines Reversed If access problem, who was notified: Pre and Post-Assessment Patient Vitals for the past 8 hrs: Level of Consciousness Oriented X Heart Rhythm Respiratory Pattern O2 Device Bilateral Breath Sounds Skin Color Skin Condition/Temp Appetite Abdomen Inspection Bowel Sounds (All Quadrants) Edema Generalized Edema 11/29/24 0841 -- -- -- -- -- Diminished;Expiratory wheezes;Inspiratory wheezes -- -- -- Soft;Rounded Active Generalized Non-pitting 11/29/24 0851 Alert (0) x4 Regular Other (Comment) None (Room air) Diminished [address] Warm;Dry Good Soft;Rounded Active Generalized Non-pitting 11/29/24 1346 Alert (0) x4 Regular Other (Comment) None (Room air) -- [address] Warm;Dry Good Soft;Rounded Active Generalized Non-pitting Labs Lab Results Component Value Date/Time WBC 5.2 11/29/2024 0706 HGB 8.2 (L) 11/29/2024 0706 HCT 26.1 (L) 11/29/2024 0706 PLT 222 11/29/2024 0706 NA 144 11/29/2024 0706 K 5.1 11/29/2024 0706 CL 109 (H) 11/29/2024 0706 CO2 26 11/29/2024 0706 BUN 58 (H) 11/29/2024 0706 CREATININE 5.79 (H) 11/29/2024 0706 CALCIUM 8.9 11/29/2024 0706 PHOS 2.9 10/01/2023 1115 IV Drips and Rate/Dose Continuous Meds[3] Safety - Before each treatment: Dialysis Machine No.: [id number] RO Machine Number: [id number] Dialyzer Lot No.: [id number] Tubing Lot Number: [id number] [employer] Secure: Yes Venous Parameters Set: Yes Arterial Parameters Set: Yes NS Bag: Yes Saline Line Double Clamped: Yes Dialyzer: Nipro Prime Volume (mL): 200 mL RO Machine Number: [id number] RO Machine Log Sheet Completed: Yes Machine Alarm Self Test: Completed, Passed (11/29/24931) Air Foam Detector: Tested, Proper Function, pH Reading Extracorporeal Circuit Tested for Integrity: Yes Machine Conductivity: 13.4 Manual Conductivity: 13.6 Manual Ph: 7.2 Bleach Test (Neg): Yes Bath Temperature: 36 ?C (96.8 ?F) Conductivity Meter Serial #: [id number] Machine Functioning Alarm Free? Yes Dialysis Bath: K+ (Potassium): 2 Ca+ (Calcium): 2.5 Na+ (Sodium): 137 HCO3 (Bicarb): 35 Bicarbonate Concentrate Lot No.: [id number] Acid Concentrate Lot No.: [id number] Chlorine Testing - Before each treatment and every 4 hours: Time On: 931 Time Off: 1332 Treatment Goal: 3 Weight Height: 177.8 cm (5' 10") (11/28/24 1358) Weight: 120 kg (265 lb) (11/29/24 030) BMI (Calculated): 38.02 (11/29/24 030) 1st check: less than 0.1 ppm at: 0828 2nd check: less than 0.1 ppm at: 1221 3rd check: Not Applicable (if greater than 0.1 ppm, then check every 30 minutes from secondary) Access Flows and Pressures Patient Vitals for the past 8 hrs: Blood Flow Rate (mL/min) Ultrafiltration Rate (ml/hr) Arterial Pressure (mmHg) Venous Pressure (mmHg) TMP DFR Access Visible Intra-Hemodialysis Comments 11/29/24 0932 350 mL/min 870 ml/hr -120 mmHg 80 mmHg 60 600 Yes tx started per policy with lines reversed due to art pressure alarming with breagthing, denies needs, LVSD 11/29/24 0945 350 mL/min 870 ml/hr -140 mmHg 100 mmHg 70 600 Yes eyes closed with no sign of acute distress, LVSD 11/29/24 1000 350 mL/min 870 ml/hr -130 mmHg 90 mmHg 60 600 Yes eyes closed with no sign of acute distres (more content not included)... [facility] Progress Noteon 11-29-2024 Progress Note Department of [employer] Instructor al Medicine Division of Endocrinology, Diabetes, & Metabolism Endocrinology Note Patient Name: José Manuel Ashton : 1960 AGE: 63 y.o. Room/Bed: [facility] Admission Date: 11/25/2024 Visit Date: 11/29/2024 Reason for Endocrine Consult: DM/Pt on U300 insulin Provider/Team Requesting Consult: Dr. Hills PCP: Brittaney Garcia MD Outpt [place] [employer] [facility]er: Yes [facility] ASSESSMENT: Type 2 diabetes mellitus with hyperglycemia, with chcf insulin use Lethargy and chills HTN DM2 ESRD Anemia Hyperlipidemia Depression Class 3 obesity PLAN: Continue Lantus 10 units nightly Continue Humalog 3 units TID with meals Continue humalog sliding scale to Low dose TID with meals. ICU goal <180 GMF goal <150 POCT BG ACHS Hypoglycemia management per protocol Carb controlled diet ANTICIPATED ENDOCRINE HOME GOING RECOMMENDATIONS: Optimized for Discharge from Endocrine standpoint: Yes Home Going Endocrine Rx Recommendations-- Toujeo 10 units nightly Humalog 3 units TID before meals plus low dose sliding scale Outpt Follow Up-- [facility] Endocrinology SUBJECTIVE/HPI: CHIEF COMPLAINT: Chief Complaint Patient presents with Altered Mental Status Pt presents to ED via EMS from [facility] for responding slowly and indicates he is cold. José Manuel Ashton is a 63 yo male who presented to ED from [facility] with Tremor, chills and delayed response. Patient has baseline cognitive limitations but is able to answer questions. PMH: ESRD on dialysis, DM Type of DM: 2 Onset of DM: Before 2020 Home DM Medication Regimen: Toujeo 18 units daily Humalog 8 units TID AC plus medium dose sliding scale DM control (last A1c/glucose data): Lab Results Component Value Date HGBA1C 5.5 11/26/2024 Interval history: 11/29/2024 Patient resting in bed Just finishing dialysis Plan for discharge to SNF today Appetite is ok Only complaint is pain in his hands Denies CP, N/V, abd pain Weakness and chills resolved Concerned he will receive pain meds at [facility] BG controlled no change in doses 11/28/2024 Patient alert and oriented sitting up in chair at bedside. VSS on RA Diet: Carb control Tolerating diet Endorses bilateral upper extremity pain, weakness 11/27 Patient alert and oriented lying in bed - Responses delayed when asking about orientation. BGL reviewed and listed below VSS on RA Diet: Carb Tolerating diet Denies n/v, abdominal pain, chest pain, shortness of breath Endorses weakness when ambulating and feels confused on IVABX 11/26 Patient alert sitting up in bed Patient reports he resides at [facility] Patient not sure of insulin doses at [facility] - Does not give his own injections. Reports blood sugars are checked before meals but not sure what blood sugar levels are. Carb controlled diet Patient reports tremors, chills Feels unsteady on feet. PT was stopped at SNF per patient. Patient on IV vanc Glucose Date/Time Value Ref Range Status 11/29/2024 08:41 AM 140 (H) 70 - 100 mg/dL Final 11/28/2024 07:48 PM 119 (H) 70 - 100 mg/dL Final 11/28/2024 04:52 PM 131 (H) 70 - 100 mg/dL Final 11/28/2024 11:45 AM 137 (H) 70 - 100 mg/dL Final 11/28/2024 08:07 AM 128 (H) 70 - 100 mg/dL Final 11/27/2024 08:19 PM 158 (H) 70 - 100 mg/dL Final Previously used medications: Metformin Lantus Actos Trulicity Ozempic Review of Systems Neurological: Positive for numbness. ROS negative except for those mentioned in HPI. OBJECTIVE: Vitals: 11/29/24 1230 11/29/24 1245 11/29/24 1300 11/29/24 1315 BP: 121/84 142/77 140/79 132/79 BP Location: Patient Position: Pulse: 90 85 86 86 Resp: Temp: TempSrc: SpO2: Weight: Height: Physical Exam Vitals reviewed. Constitutional: General: He is not in acute distress. Appearance: Normal appearance. He is obese. HENT: Head: Normocephalic. Eyes: Pupils: Pupils are equal, round, and reactive to light. Cardiovascular: Rate and Rhythm: Normal rate and regular rhythm. Pulses: Normal pulses. Heart sounds: Normal heart sounds. Pulmonary: Effort: Pulmonary effort is normal. Breath sounds: Normal breath sounds. Musculoskeletal: General: No swelling. Normal range of motion. Skin: General: Skin is warm and dry. Neurological: Mental Status: He is alert and oriented to person, place, and time. Psychiatric: Mood and Affect: Mood normal. Behavior: Behavior normal. 24 hour intake/output:No intake or output data in the 24 hours ending 11/29/24 1346 Diet: Adult diet Regular; 5 carb choices (75 gm/meal) Medications (as per EMR): HomeMeds: Current Outpatient Medications Medication Instructions acetaminophen (TYLENOL) 325 mg, Every 6 hours PRN amLODIPine (NORVASC) 5 mg, Oral, Daily bisacodyl (DULCOLAX) 5 mg, Daily PRN bisacodyl (DULCOLAX) 10 mg, Daily PRN cyclob (more content not included)... [facility] Progress Note OCCUPATIONAL THERAPY [facility]'s Name/MRN: José Manuel Ashton ([id number]) Date: 11/29/2024 Pt intended for OT treatment this date. Upon arrival, pt completing dialysis at this time and unavailable for therapy treatment. Will continue to follow and attempt as appropriate this admission. Emerson Mendoza, KURT [facility] [id number] 11-28-2024 [id number] Sent updated notes t o return back to [facility] [place] [facility] per [facility] request. Await review and response regarding ability to accept. [facility] notified. [facility] CBC W Auto Differential pane l (Bld)on 11-28-2024 Basophils (Bld) [#/Vol] 0 10*3/uL 0.0 - 0.2 10*3/uL Basophils/100 WBC (Bld) 0.4 % 0.0 - 2.0 % Eosinophils (Bld) [#/Vol] 0.3 10*3/uL 0.0 - 0.5 10*3/uL Eosinophils/100 WBC (Bld) 5.9 % 0.0 - 6.0 % Erythrocyte distribution width (RBC) [Ratio] 12.8 % 11.5 - 15.0 % Hematocrit (Bld) [Volume fraction] 26.4 % Low 40.0 - 52.0 % Hemoglobin (Bld) [Mass/Vol] 8.5 g/dL Low 13.0 - 18.0 g/dL Immature granulocytes (Bld) [#/Vol] 0.1 10*3/uL High NINF - 0.1 10*3/uL Immature granulocytes/100 WBC (Bld) 1.4 % 0.0 - 2.0 % Interpretation and review of laboratory results Abnormal Lymphocytes (Bld) [#/Vol] 1.3 10*3/uL 1.0 - 4.3 10*3/uL Lymphocytes/100 WBC (Bld) 25.9 % 15.0 - 45.0 % MCH (RBC) [Entitic mass] 29.5 pg 26.0 - 34.0 pg MCHC (RBC) [Mass/Vol] 32.2 % 30.5 - 36.0 % MCV (RBC) [Entitic vol] 91.7 fL 77.0 - 99.0 fL Monocytes (Bld) [#/Vol] 0.5 10*3/uL 0.0 - 0.9 10*3/uL Monocytes/100 WBC (Bld) 10.2 % 5.0 - 13.0 % Neutrophils (Bld) [#/Vol] 2.9 10*3/uL 1.8 - 7.5 10*3/uL Neutrophils/100 WBC (Bld) 56.2 % 38.0 - 82.0 % Nucleated RBC/100 WBC (Bld) [Ratio] 0 % Platelet mean volume (Bld) [Entitic vol] 8.8 fL Low 9.0 - 12.7 fL Platelets (Bld) [#/Vol] 227 10*3/uL 140 - 440 10*3/uL RBC (Bld) [#/Vol] 2.88 10*6/uL Low 4.40 - 5.9 0 10*6/uL WBC (Bld) [#/Vol] 5.1 10*3/uL 3.6 - 10.7 10*3/uL [facility] CBC WITH AUTO DIFFERENTIALon 11-28-2024 Basophils (Bld) [#/Vol] 0.0 10*3/uL Normal 0.0-0.2 [facility] Comment on above: Performed By: #### L [id number] ####Band Machine Operator: JAQUELIN MO ([id number])[facility] (SB[facility])[address] [place] [address] Basophils/100 WBC (Bld) 0.4 % Normal 0.0-2.0 [facility] Comment on above: Performed By: #### L [id number] ####Band Machine Operator: JAQUELIN MO ([id number])[facility] ([facility])[address] [place] [address] [place] Eosinophils (Bld) [#/Vol] 0.3 10*3/uL Normal 0.0-0.5 [facility] Comment on above: Performed By: #### L [id number] ####Band Machine Operator: JAQUELIN MO ([id number])[facility] [place] (SBHLAB)[address] [place] [address] [place] Eosinophils/100 WBC (Bld) 5.9 % Normal 0.0-6.0 [facility] Comment on above: Performed By: #### L [id number] ####Band Machine Operator: JAQUELIN MO ([id number])[facility] [place] (SBHLAB)[address] Erythrocyte distribution width (RBC) [Ratio] 12.8 % Normal 11.5-15.0 [facility] Comment on above: Performed By: #### L [id number] ####Band Machine Operator: JAQUELIN RASCONYOEL ([id number])[facility] [place] (SB[facility])[address] Hematocrit (Bld) [Volume fraction] 26.4 % Low 40.0-52.0 [facility] Comment on above: Performed By: #### L [id number] ####Band Machine Operator: JAQUELIN MO ([id number])[facility] ([facility])[address] Hemoglobin (Bld) [Mass/Vol] 8.5 g/dL Low 13.0-18.0 [facility] Comment on above: Performed By: #### L [id number] ####Band Machine Operator: JAQUELIN MO ([id number])[facility] [place] (SB[facility])[address] IMMATURE GRANS % 1.4 % Normal 0.0-2.0 [facility] Comment on above: Performed By: #### L [id number] ####Band Machine Operator: JAQUELIN MO ([id number])[facility] ([facility])[address] IMMATURE GRANS ABSOLUTE 0.1 10*3/uL High <0.1 [facility] Comment on above: Performed By: #### L [id number] ####Band Machine Operator: JAQUELIN MO ([id number])[facility] [place] (SB[facility])[address] Lymphocytes (Bld) [#/Vol] 1.3 10*3/uL Normal 1.0-4.3 [facility] Comment on above: Performed By: #### L [id number] ####Band Machine Operator: JAQUELIN MO ([id number])[facility] [place] ([facility])[address] Lymphocytes/100 WBC (Bld) 25.9 % Normal 15.0-45.0 [facility] Comment on above: Performed By: #### L [id number] ####Band Machine Operator: JAQUELIN MO ([id number])[facility] (SBHLAB)[address] MCH (RBC) [Entitic mass] 29.5 pg Normal 26.0-34.0 [facility] Comment on above: Performed By: #### L [id number] ####Band Machine Operator: JAQUELIN MO ([id number])[facility] [place] ([facility])[address] MCHC 32.2 % Normal 30.5-36.0 [facility] Comment on above: Performed By: #### L [id number] ####Band Machine Operator: JAQUELIN MO ([id number])[facility] [place] ([facility])[address] MCV (RBC) [Entitic vol] 91.7 fL Normal 77.0-99.0 [facility] Comment on above: Performed By: #### L [id number] ####Band Machine Operator: JAQUELIN MO ([id number])[facility] [place] ([facility])[address] [place] [address] Monocytes (Bld) [#/Vol] 0.5 10*3/uL Normal 0.0-0.9 [facility] Comment on above: Performed By: #### L [id number] ####Band Machine Operator: JAQUELIN MO ([id number])[facility] [place] ([facility])[address] Monocytes/100 WBC (Bld) 10.2 % Normal 5.0-13.0 [facility] Comment on above: Performed By: #### L [id number] ####Band Machine Operator: JAQUELIN MO ([id number])[facility] [place] ([facility])[address] NEUTROPHILS ABSOLUTE 2.9 10*3/uL Normal 1.8-7.5 [facility] Comment on above: Performed By: #### L [id number] ####Band Machine Operator: JAQUELIN MO ([id number])[facility] [place] ([facility])[address] Neutrophils/100 WBC (Bld) 56.2 % Normal 38.0-82.0 [facility] Comment on above: Performed By: #### L [id number] ####Band Machine Operator: JAQUELIN MO ([id number])[facility] [place] ([facility])[address] NRBC 0.0 /100 WBCs Normal 0.0-2.0 [facility] Comment on above: Performed By: #### L [id number] ####Band Machine Operator: JAQUELIN MO ([id number])[facility] [place] ([facility])[address] Platelet mean volume (Bld) [Entitic vol] 8.8 fL Low 9.0-12.7 [facility] Comment on above: Performed By: #### L [id number] ####Band Machine Operator: JAQUELIN MO ([id number])[facility] [place] ([facility])[address] Platelets (Bld) [#/Vol] 227 10*3/uL Normal 140-440 [facility] Comment on above: Performed By: #### L [id number] ####Band Machine Operator: JAQUELIN MO ([id number])[facility] [place] ([facility])[address] RBC (Bld) [#/Vol] 2.88 10*6/uL Low 4.40-5.90 [facility] Comment on above: Performed By: #### L [id number] ####Band Machine Operator: JAQUELIN MO ([id number])[facility] [place] ([facility])[address] WBC (Bld) [#/Vol] 5.1 10*3/uL Normal 3.6-10.7 [facility] Comment on above: Performed By: #### L [id number] ####Band Machine Operator: JAQUELIN MO ([id number])[facility] (SBHLAB)[address] COMPREHENSIVE METABOLIC PANE Tommie 11-28-2024 Albumin [Mass/Vol] 2.8 g/dL Low 3.4-4.8 [facility] Comment on above: Performed By: #### L AB17, [id number] ####Band Machine Operator: JAQUELIN MO ([id number])[facility] [place] (SB[facility])[address] ALP [Catalytic activity/Vol] 111 U/L Normal 40-150 [facility] Comment on above: Performed By: #### L AB17, [id number] ####Band Machine Operator: JAQUELIN MO ([id number])[facility] [place] (SB[facility])[address] ALT [Catalytic activity/Vol] 34 U/L Normal <40 [facility] Comment on above: Performed By: #### L AB17, [id number] ####Band Machine Operator: JAQUELIN MO ([id number])[facility] (SB[facility])[address] Anion gap [Moles/Vol] 10 mmol/L Normal 3-13 [facility] Comment on above: Performed By: #### L AB17, [id number] ####Band Machine Operator: JAQUELIN MO ([id number])[facility] [place] ([facility])[address] AST [Catalytic activity/Vol] 28 U/L Normal <34 [facility] Comment on above: Performed By: #### L AB17, [id number] ####Band Machine Operator: JAQUELIN MO ([id number])[facility] [place] ([facility])[address] Bilirubin [Mass/Vol] 0.4 mg/dL Normal <1.2 [facility] Comment on above: Performed By: #### L AB17, [id number] ####Band Machine Operator: JAQUELIN MO ([id number])[facility] (SBHLAB)[address] Calcium [Mass/Vol] 8.8 mg/dL Normal 8.8-10.0 [facility] Comment on above: Performed By: #### L AB17, [id number] ####Band Machine Operator: JAQUELIN MO ([id number])[facility] (SBHLAB)[address] Chloride [Moles/Vol] 106 mmol/L Normal 98-107 [facility] Comment on above: Performed By: #### L AB17, [id number] ####Band Machine Operator: JAQUELIN MO ([id number])[facility] (SB[facility])[address] CO2 [Moles/Vol] 27 mmol/L Normal 23-31 [facility] Comment on above: Performed By: #### L AB17, [id number] ####Band Machine Operator: JAQUELIN MO ([id number])[facility] (HLAB)[address] Creatinine [Mass/Vol] 4.87 mg/dL High 0.72-1.25 [facility] Comment on above: Performed By: #### L AB17, [id number] ####Band Machine Operator: JAQUELIN MO ([id number])[facility] (SBHLAB)[address] [place] [address] [place] GLOMERULAR FILTRATION RATE ML/MIN/1.73 SQ M.PREDICTED 12.6 mL/min/1.73m*2 Low >60.0 [facility] Comment on above: Result Comment: Calc ulation based on the Chronic Kidney Disease Epidemiology Collaboration (CKD-EPI) equation refit without adjustment for race Performed By: #### L AB17, [id number] ####Band Machine Operator: JAQUELIN MO ([id number])[facility] [place] ([facility])[address] Glucose [Mass/Vol] 135 mg/dL High 82-115 [facility] Comment on above: Performed By: #### L AB17, [id number] ####Band Machine Operator: JAQUELIN MO ([id number])[facility] (SB[facility])[address] Potassium [Moles/Vol] 4.7 mmol/L Normal 3.5-5.1 [facility] Comment on above: Result Comment: [facility] potassium values may be up to 0.5 mmol/L lower than serum values. Performed By: #### L AB17, [id number] ####Band Machine Operator: JAQUELIN MO ([id number])[facility] (SB[facility]AB)[address] Protein [Mass/Vol] 6.1 g/dL Low 6.4-8.3 [facility] Comment on above: Performed By: #### L AB17, [id number] ####Band Machine Operator: JAQUELIN MO ([id number])[facility] (SB[facility])[address] Sodium [Moles/Vol] 143 mmol/L Normal 136-145 [facility] Comment on above: Performed By: #### L AB17, [id number] ####Band Machine Operator: JAQUELIN MO ([id number])[facility] ([facility])[address] Urea nitrogen [Mass/Vol] 43 mg/dL High 9-23 [facility] Comment on above: Performed By: #### L AB17, [id number] ####Band Machine Operator: JAQUELIN MO ([id number])[facility] ([facility])[address] Comprehensive metabolic 1998 panelOrdered By: Gina Gonsales on 11-28-2024 Albumin [Mass/Vol] 2.8 g/dL Low 3.4 - 4.8 g/dL ALP [Catalytic activity/Vol] 111 U/L 40 - 150 U/L ALT [Catalytic activity/Vol] 34 U/L NINF - 40 U/L Anion gap [Moles/Vol] 10 mmol/L 3 - 13 mmol/L AST [Catalytic activity/Vol] 28 U/L NINF - 34 U/L Bilirubin [Mass/Vol] 0.4 mg/dL NINF - 1.2 mg/dL Calcium [Mass/Vol] 8.8 mg/dL 8.8 - 10. 0 mg/dL Chloride [Moles/Vol] 106 mmol/L 98 - 10 7 mmol/L CO2 [Moles/Vol] 27 mmol/L 23 - 31 mmol/L Creatinine [Mass/Vol] 4.87 mg/dL High 0.72 - 1.25 mg/dL GFR/1.73 sq M.predicted (S/P/Bld) [Vol rate/Area] 12.6 mL/min Low - PINF Comment on above: Calculation based on the Chronic Kidney Disease Epidemiology Collaboration (CKD-EPI) equation refit without adjustment for race Glucose [Mass/Vol] 135 mg/dL High 82 - 115 mg/dL Interpretation and review of laboratory results Abnormal Potassium [Moles/Vol] 4.7 mmol/L 3.5 - 5.1 mmol/L Comment on above: Plasma potassium reji ues may be up to 0.5 mmol/L lower than serum values. Protein [Mass/Vol] 6.1 g/dL Low 6.4 - 8.3 g/dL Sodium [Moles/Vol] 143 mmol/L 136 - 145 mmol/L Urea nitrogen [Mass/Vol] 43 mg/dL High 9 - 23 mg/dL [facility] Laboratory - Chemistry and C hemistry - challengeon 11-28-2024 Glucose [Mass/Vol] 119 mg/dL High 70 - 100 mg/dL Glucose [Mass/Vol] 131 mg/dL High 70 - 100 mg/dL Glucose [Mass/Vol] 137 mg/dL High 70 - 100 mg/dL TSH Qn 3.04 m[IU]/L Glucose [Mass/Vol] 128 mg/dL High 70 - 100 mg/dL Laboratory - Drug toxicology on 11-28-2024 Vancomycin trough [Mass/Vol] 26.5 ug/mL [facility] No Panel Informationon 11-28 Interpretation and review of laboratory results Abnormal [facility] Performed by: Felicita Daly, [address] [place] [address], [facility] [address] CLIA ID: [id number] [facility] Interpretation and review of laboratory results Abnormal [facility] Performed by: Felicita Daly [address] [place] [address], [facility] [address] CLIA ID: [id number] [facility] Interpretation and review of laboratory results Abnormal [facility] Performed by: Felicita Daly [address] [place] [address], [facility] [address] CLIA ID: [id number] [facility] Interpretation and review of laboratory results Abnormal [facility] Performed by: Felicita Daly [address] [place] [address], [facility] [address] CLIA ID: [id number] [facility] Progress Noteon 11-28-2024 Progress Note Nutrition Assessment Type and Reason for Visit: Initial, RD Nutrition Re-Screen/LOS (DT ref for ESRD on HD) Nutrition Recommendations/Plan: Continue with Adult diet Regular; 5 carb choices (75 gm/meal) Initiate Glucerna Shake once daily per MNT protocol. Glucerna Shake provides 220 kcals and 10g protein per 8 oz serving. Please document pt's PO intakes via flowsheet to accurately assess PO intake adequacy. Monitor intakes, weights, and labs weekly. RD will follow. Malnutrition Assessment: Malnutrition Status: No malnutrition Context: Acute Illness Findings of the 6 clinical characteristics of malnutrition: Energy Intake: Mild decrease in energy intake (Comment) Weight Loss: No significant weight loss Body Fat Loss: No significant body fat loss Muscle Mass Loss: No significant muscle mass loss Fluid Accumulation: Mild Generalized Windows Admin Strength: Not Performed Nutrition Assessment: Pt is a 63 y/o male admitted to [facility] with complaints of Chills, weakness, and lethargy, no c/o CP, cough, nausea, vomiting. Respiratory panel wnl, COVID negative. Pt has ESRD on HD- on a Monday through Monday schedule at [facility]. Pt reports having a fair to decreased appetite. Pt is interested in trying Glucerna Shake once daily until his intakes/appetite is more consistent. Pt is unsure of his dry weight stating that he is not sure what a dry weight is. RD explained that it is a targeted weight. Per wt history, weighed 254# (07/10/24). Pt stated "that sounds about right." Pt's CBW 265#. Estimated Daily Nutrient Needs: Energy Requirements Based On: Kcal/kg Weight Used for Energy Requirements: [place] Weight for Energy Calculation (kg): 75 kg Total Energy Requirements (kcals/day): 5505-8694 kcals (25-30 kcals/kg) Weight Used for Protein Requirements: [place] Weight in Kg Used for Protein Requirements: 75 kg Estimated Total Protein (g/day): 90-105g (1.2-1.4g/kg) Estimated Daily Total Fluid (ml/day): urine output+1000 ml/day or per MD Nutrition Related Findings: non pitting generalized edema; BUN 43, Cr 4.87, GFR 12.6, Glucose 128, 158, 137, Albumin 2.8, Hgb 8.5, Hct 26.4, Hgb A1c 5.5%; Lantus, Humalog, Vancocin Wound Type: (red coccyx) Current Nutrition Therapies: Adult diet Regular; 5 carb choices (75 gm/meal) Current Oral Intake Average Meal Intake: 76-100% Average Supplements Intake: None Ordered Anthropometric Measures: Height: 177.8 cm (5' 10") Current Body Weight: 120 kg (265 lb) Weight Source: Not Specified Admission Body Weight: 113 kg (250 lb) Usual Body Weight: 115 kg (254 lb) (07/10/24) % Weight Change (Calculated): 4.3 [place] Body Weight (lbs) (Calculated): 166 lbs [place] Body Weight (Kg) (Calculated): 75 kg % [place] Body Weight (Calculated): 159.6 % BMI (kg/m2) (Calculated): 38 Weight Adjustment For: No Adjustment BMI Categories: Obese Class 2 (BMI 35.0 -39.9) Nutrition Diagnosis: Altered nutrition-related lab values related to renal dysfunction as evidenced by lab values Increased nutrient needs related to increase demand for energy/nutrients as evidenced by dialysis Nutrition Interventions: Nutrition Education/Counseling: No recommendation at this time Coordination of Nutrition Care: Continue to monitor while inpatient Plan of Care discussed with: Patient Goals: Goals: PO intake 75% or greater, by next RD assessment, other (specify) Specify Other Goals: Labs will trend towards baseline Nutrition Monitoring and Evaluation: Behavioral-Environmental Outcomes: None Identified Food/Nutrient Intake Outcomes: Diet Advancement/Tolerance, Food and Nutrient Intake, Supplement Intake Physical Signs/Symptoms Outcomes: Biochemical Data, GI Status, Nausea or Vomiting, Fluid Status or Edema, Nutrition Focused Physical Findings, Skin Discharge Planning: Continue current diet, Continue Oral Nutrition Supplement Arlin Juárez RD Contact: *[phone] or via Secure Chat [facility] Progress Note OCCUPATIONAL THERAPY [facility] Treatment Note Name/MRN: José Manuel Ashton ([id number]) Date of : 1960 Age: 63 y.o. Room/Bed: B4-616/J0-116 A Visit #: 1 out of 7 Discharge Recommendation: Long Term Facility Equipment Needed: No Assessment Patient was seen for OT treatment this date focusing on functional transfers/mobility with a front wheel walker. He continues to be limited by increased weakness, instability, and remains a high fall risk this date. He is currently mod assist for functional transfers and mod assist for short functional mobility this date with a front wheel walker. Increased noted lower extremity buckling throughout requiring assistance from therapist to maintain upright posture. He will continue to benefit from skilled OT services to address the below. Recommend plan discharge for SNF at this time. Subjective Pleasant and cooperative. Okay to see per RN. Agreeable to therapy treatment. Pain: 0-10 pain scale: 8/10 Location: BUE hands and BLE knees Medical Precautions: No active isolations Proper PPE donned/doffed in accordance with facility standards. Fall Risk: Smith Fall Risk Score: 60 (High Risk) Precautions/Restrictions: skin care precautions Family/Caregiver Present: none Objective Bed Mobility Supine to sit: Min Assist Scooting: Min Assist Head of bed elevated. Denies dizziness positional changes. Min assist overall for supine to sit mobility as well as for scooting at edge of bed. Increased reliance on pull upon therapist to reach edge of bed with patient able to mobilize bilateral lower extremities to edge of bed without physical assist. Increased reliance on bed rails to complete. Patient up in recliner following session. Transfers/Mobility Sit to stand: Mod Assist Stand to sit: Mod Assist Stand step: Mod Assist Functional mobility: Mod Assist Patient completed sit to stands x 2 this date, x 1 from edge of bed and x 1 from recliner with mod assist overall. Increased time required to complete with cueing and education provided for positioning of bilateral lower extremities as well as body mechanics this date with good teach back noted at this time. Patient with good hand placement for push up from/reach back for seated surfaces with good bilateral lower EXTR management for proper base of support following initial education. Mod assist overall for lifting to standing as well as for controlled descent this date during positional changes. He was able to complete short stand step transfer from edge of bed to recliner with mod assist overall and noted lower extremity buckling during completion. Have reliance on front wheel walker for stability with patient grossly able to self-correct during alex however fatigues during out of activity. He was able to complete approximately [address] in standing before returning to sitting. Following seated rest break in recliner. Patient was able to complete additional stand and short mobility with approximately 6 steps forwards and backwards with increased reliance on front wheel walker. Device(s) used: Front wheeled walker Plan Continue acute OT per plan of care. Safety/Education Safety Safety Devices in place: All fall risk precautions in place, call light within reach, left in chair, gait belt, patient at risk for falls, nurse notified, and no alarms engaged upon entry Restraints: No Education Education Given To: patient Education Provided: OT Role, Plan of Care, Transfer Training, Energy Conservation, Equipment, Fall Prevention Education, and Benefits of Increasing Activity Education Method: Verbal, Demonstration, and Teach Back Barriers to Learning: None Education Outcome: Verbalized Understanding and Demonstrated Understanding AM-PAC AM-PAC Inpatient Daily Activity Raw Score: 15 ADL Inpatient CMS G-Code Modifier: CK Goals Patient Stated Goal: to get my pain under control Encounter Problems Encounter Problems (Active) Balance Patient will maintain static standing balance for 3 minutes with CGA in order to demonstrate decreased risk of falling. (Progressing) Start: 11/26/24 Expected End: 12/04/24 Dressing Upper Extremities Patient will complete upper body dressing Mod I (Not Progressing) Start: 11/26/24 Expected End: 12/04/24 Dressings Lower Extremities Patient will dress lower body Min A (Not Progressing) Start: 11/26/24 Expected End: 12/04/24 Toileting Patient will complete toileting tasks at standard toilet with modified independence. (Initiated) Start: 11/26/24 Expected End: 12/04/24 Transfers Patient will complete functional transfer with least restrictive device with SBA in order to prepare for functional mobility. (Progressing) Start: 11/26/24 Expected End: 12/04/24 Patient will perform bed mobility with min assist in order to improve independence and prepare for out of bed mobility. (Progressing) (more content not included)... Normal [facility] Progress Note Department of [employer] Instructor al Medicine Division of Endocrinology, Diabetes, & Metabolism Endocrinology Note Patient Name: José Manuel Ashton : 1960 AGE: 63 y.o. Room[facility]: [facility] A Admission Date: 11/25/2024 Visit Date: 11/28/2024 Reason for Endocrine Consult: DM/Pt on U300 insulin Provider/Team Requesting Consult: Dr. 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 ICU goal <180 GMF goal <150 POCT BG ACHS Hypoglycemia management per protocol Carb controlled diet ANTICIPATED ENDOCRINE HOME GOING RECOMMENDATIONS: Optimized for Discharge from Endocrine standpoint: Yes Home Going Endocrine Rx Recommendations-- Toujeo 10 units nightly Humalog 3 units TID before meals plus low dose sliding scale Outpt Follow Up-- [facility] Endocrinology SUBJECTIVE/HPI: CHIEF COMPLAINT: Chief Complaint Patient presents with Altered Mental Status Pt presents to ED via EMS from [facility] for responding slowly and indicates he is cold. José Manuel Ashton is a 63 yo male who presented to ED from [facility] with Tremor, chills and delayed response. Patient has baseline cognitive limitations but is able to answer questions. PMH: ESRD on dialysis, DM Type of DM: 2 Onset of DM: Before 2020 Home DM Medication Regimen: Toujeo 18 units daily Humalog 8 units TID AC plus medium dose sliding scale DM control (last A1c/glucose data): Lab Results Component Value Date HGBA1C 5.5 11/26/2024 Interval history:11/28/2024 Patient alert and oriented sitting up in chair at bedside. VSS on RA Diet: Carb control Tolerating diet Endorses bilateral upper extremity pain, weakness 11/27 Patient alert and oriented lying in bed - Responses delayed when asking about orientation. BGL reviewed and listed below VSS on RA Diet: Carb Tolerating diet Denies n/v, abdominal pain, chest pain, shortness of breath Endorses weakness when ambulating and feels confused on IVABX 11/26 Patient alert sitting up in bed Patient reports he resides at [facility] Patient not sure of insulin doses at [facility] - Does not give his own injections. Reports blood sugars are checked before meals but not sure what blood sugar levels are. Carb controlled diet Patient reports tremors, chills Feels unsteady on feet. PT was stopped at [facility] per patient. Patient on IV vanc Glucose Date/Time Value Ref Range Status 11/28/2024 11:45 AM 137 (H) 70 - 100 mg/dL Final 11/28/2024 08:07 AM 128 (H) 70 - 100 mg/dL Final 11/27/2024 08:19 PM 158 (H) 70 - 100 mg/dL Final 11/27/2024 11:17 AM 137 (H) 70 - 100 mg/dL Final 11/27/2024 08:09 AM 142 (H) 70 - 100 mg/dL Final 11/26/2024 08:00 PM 180 (H) 70 - 100 mg/dL Final Previously used medications: Metformin Lantus Actos Trulicity Ozempic Review of Systems Constitutional: Positive for chills and fatigue. Respiratory: Negative for shortness of breath. Cardiovascular: Negative for chest pain and palpitations. Neurological: Positive for weakness. Negative for tremors. ROS negative except for those mentioned in HPI. OBJECTIVE: Vitals: 11/28/24 0600 11/28/24 0735 11/28/24 0758 11/28/24 1142 BP: 105/70 129/66 BP Location: Left arm Left arm Patient Position: Lying Sitting Pulse: 88 86 86 Resp: 15 17 Temp: 36.5 ?C (97.7 ?F) 36.2 ?C (97.1 ?F) TempSrc: Temporal Temporal SpO2: 96% 96% Weight: 265 lb 8 oz (120 kg) Height: Physical Exam Vitals and nursing note reviewed. Constitutional: General: He is not in acute distress. Appearance: He is not toxic-appearing or diaphoretic. HENT: Head: Normocephalic. Nose: Nose normal. Mouth/Throat: Mouth: Mucous membranes are moist. Eyes: Conjunctiva/sclera: Conjunctivae normal. Cardiovascular: Rate and Rhythm: Normal rate and regular rhythm. Pulses: Normal pulses. Heart sounds: Normal heart sounds. Pulmonary: Effort: Pulmonary effort is normal. Musculoskeletal: Right lower leg: No edema. Left lower leg: No edema. Skin: General: Skin is warm. Neurological: Mental Status: He is alert. Psychiatric: Mood and Affect: Mood normal. Behavior: Behavior normal. 24 hour intake/output: Intake/Output Summary (Last 24 hours) at 11/28/2024 1258 Last data filed at 11/28/2024 0300 Gross per 24 hour Intake 780 ml Output 2000 ml Net -1220 ml Diet: Adult diet Regular; 5 carb choices (75 gm/meal) Medications (as per EMR): HomeMeds: Current Outpatient Medications Medication Instructions acetaminophen (TYLENOL) 325 mg, Every 6 hours PRN bisacodyl (DULCOLAX) 5 mg, Daily IL (more content not included)... Normal [facility] THYROID STIMULATING HORMONEo n 11-28-2024 THYROID STIMULATING HORMONE 3.04 uIU/mL Normal 0.35-4.94 [facility] Comment on above: Performed By: #### L [id number], [id number] ####Band Machine Operator: JAQUELIN MO ([id number])[facility] ([facility] [place] [address] TSH Qnon 11-28-2024 Interpretation and review of laboratory results Normal [facility] VANCOMYCIN, AUC TIMED DOSING on 11-28-2024 VANCOMYCIN, AUC 26.5 ug/mL Normal [facility] Comment on above: Result Comment: FLAVIO Trejo COMMENTS: PreHD level. Okay to draw any time prior to HD session. Toxicity is seen at concentrations >80-100 ug/mL Therapeutic (Peak) range: 20-40 Therapeutic (Trough) range: 5-10 Performed By: #### L [id number] ####Band Machine Operator: JAQUELIN MO ([id number])[facility] ([facility])[address] [place] [address] Vancomycin trough [Mass/Vol] on 11-28-2024 Toxicity is seen at concentrations >80-100 ug/mL Therapeutic (Peak) range: 20-40 Therapeutic (Trough) range: 5-10 [facility] [id number] 11-27-2024 [id number] Care Managment Initi al Assessment Date: 11/27/2024 Patient Name: José Manuel Ashton : 1960 Patient Information Source of Information: Patient Cognition/Language: WFL - Within Functional Limits Permission given to speak with patient wholesale representative/caregiver as indicated: Confirmation of Payer with patient/family: Yes Payer Name: [employer] MEDICARE/[facility] DUAL COMPLETE [place]: No Confirmation of Primary Care Physician: Primary Caregiver: If assistance needed, confirmed caregiver ready, willing and able to care for patient at discharge: Confirmed with: Living Arrangements Current Residence: Number of Floors Number of Entry Steps: Bed/Bath Levels: Facility: Nursing Facility Skilled Facility Name: [facility] Plan to Return: Yes Lives with: Alone Support Systems: Family members Activities of Daily Living Ambulation: Assistance Bathing/Dressing: Assistance Elimination/Continence/Nicola leting: Assistance Feeding: Assistance Who Assists with Activities of Daily Living: Instrumental Activities of Daily Living Prescription Coverage: Yes Pharmacy Used: Medication Management: Transportation/Shopping: Assistance Provider Transportation Mode: Payer provided transport service Needs Assistance with Transportation at Discharge: Yes Meal Preparation: Assistance Provider Meal Prep Assistance Provider Name: facility Laundry/Cleaning: Assistance Provider Laundry/Cleaning Assistance Provider Name: facility Finances/Bill Paying: Assistance Provider Finances/Bill Payer Assistance Provider Name: facility Communication: Independent Types of Care Services/Equipment Utilized Care Services: Dialysis Type: Hemo Dialysis Provider Name/Location: [facility] Durable Medical Equipment: Wheelchair (standard or power), Cane Patient's Goal/Discharge Plan Patient expects to be discharged to: [facility] Discharge Planning Actions: Continue to follow, Long Term Facility referral indicated Patient's Choice Rights and [employer] and Collaborative Relationships Disclosed as Indicated for Post-Acute Care: NA Interdisciplinary Team Engagement: Social Work Referral for: Additional Information: Spoke with patient at their bedside. Introduced self and role. Discussed discharge planning. Patient has health insurance and prescription coverage. Patient states he lives at [facility] and plans to return. Tasked [employer] to send referral in [employer]. Will await response. He receives hemodialysis there Monday through Monday. He will need ambulance transport with cot upon discharge. manager paper will continue to follow for any discharge planning needs. 2:46 PM UPDATE: Patient is a bedhold at [facility]. They would like to skill him for his return but he may return regardless when medically ready. They are submitting precert today. [facility] [phone] SW call to [facility] coverage line. Per [facility] coverage line, he was denied Assisted Living due to [facility] care placement at [facility]. [facility]CC notified. [facility] BLOOD CULTUREon 11-27-2024 Bacteria identified Cx Nom (Bld) BLOOD CULTURE Reference No growth at 5 days ORDER COMMENTS: Blood Collection Site: Left Lower Arm [ S = SUSCEPTIBLE R = RESISTANT I = INTERMEDIATE S-DD = Susceptible-dose dependent NS = Non-susceptible NO = No Interpretation ] [facility] Comment on above: Performed By: #### L [id number] #### Band Machine Operator: ESAU SKINNER ([id number]) [facility] ([facility]) [address] [place] [address] CBC W Auto Differential pane l (Bld)on 11-27-2024 Basophils (Bld) [#/Vol] 0 10*3/uL 0.0 - 0.2 10*3/uL Basophils/100 WBC (Bld) 0.2 % 0.0 - 2.0 % Eosinophils (Bld) [#/Vol] 0.1 10*3/uL 0.0 - 0.5 10*3/uL Eosinophils/100 WBC (Bld) 2.8 % 0.0 - 6.0 % Erythrocyte distribution width (RBC) [Ratio] 12.6 % 11.5 - 15.0 % Hematocrit (Bld) [Volume fraction] 26.7 % Low 40.0 - 52.0 % Hemoglobin (Bld) [Mass/Vol] 8.5 g/dL Low 13.0 - 18.0 g/dL Immature granulocytes (Bld) [#/Vol] 0.1 10*3/uL High NINF - 0.1 10*3/uL Immature granulocytes/100 WBC (Bld) 1 % 0.0 - 2.0 % Interpretation and review of laboratory results Abnormal Lymphocytes (Bld) [#/Vol] 1.2 10*3/uL 1.0 - 4.3 10*3/uL Lymphocytes/100 WBC (Bld) 23.3 % 15.0 - 45.0 % MCH (RBC) [Entitic mass] 29 pg 26.0 - 34.0 pg MCHC (RBC) [Mass/Vol] 31.8 % 30.5 - 36.0 % MCV (RBC) [Entitic vol] 91.1 fL 77.0 - 99.0 fL Monocytes (Bld) [#/Vol] 0.6 10*3/uL 0.0 - 0.9 10*3/uL Monocytes/100 WBC (Bld) 11.9 % 5.0 - 13.0 % Neutrophils (Bld) [#/Vol] 3 10*3/uL 1.8 - 7.5 10*3/uL Neutrophils/100 WBC (Bld) 60.8 % 38.0 - 82.0 % Nucleated RBC/100 WBC (Bld) [Ratio] 0 % Platelet mean volume (Bld) [Entitic vol] 8.7 fL Low 9.0 - 12.7 fL Platelets (Bld) [#/Vol] 216 10*3/uL 140 - 440 10*3/uL RBC (Bld) [#/Vol] 2.93 10*6/uL Low 4.40 - 5.9 0 10*6/uL WBC (Bld) [#/Vol] 5 10*3/uL 3.6 - 10.7 10*3/uL [facility] CBC WITH AUTO DIFFERENTIALon 11-27-2024 Basophils (Bld) [#/Vol] 0.0 10*3/uL Normal 0.0-0.2 [facility] Comment on above: Performed By: #### L [id number] ####Band Machine Operator: JAQUELIN MO ([id number])[facility] ([facility])[address] Basophils/100 WBC (Bld) 0.2 % Normal 0.0-2.0 [facility] Comment on above: Performed By: #### L [id number] ####Band Machine Operator: JAQUELIN MO ([id number])[facility] ([facility])[address] Eosinophils (Bld) [#/Vol] 0.1 10*3/uL Normal 0.0-0.5 [facility] Comment on above: Performed By: #### L [id number] ####Band Machine Operator: JAQUELIN MO ([id number])[facility] ([facility])[address] [place] [address] Eosinophils/100 WBC (Bld) 2.8 % Normal 0.0-6.0 [facility] Comment on above: Performed By: #### L [id number] ####Band Machine Operator: JAQUELIN MO ([id number])[facility] ([facility])[address] Erythrocyte distribution width (RBC) [Ratio] 12.6 % Normal 11.5-15.0 [facility] Comment on above: Performed By: #### L [id number] ####Band Machine Operator: JAQUELIN MO ([id number])[facility] ([facility])[address] Hematocrit (Bld) [Volume fraction] 26.7 % Low 40.0-52.0 [facility] Comment on above: Performed By: #### L [id number] ####Band Machine Operator: JAQUELIN BROWNOliviaYOEL ([id number])[facility] ([facility])[address] Hemoglobin (Bld) [Mass/Vol] 8.5 g/dL Low 13.0-18.0 [facility] Comment on above: Performed By: #### L [id number] ####Band Machine Operator: JAQUELIN CHEPE ([phone])[facility] ([facility] IMMATURE GRANS % 1.0 % Normal 0.0-2.0 [facility] Comment on above: Performed By: #### L [id number] ####Band Machine Operator: JAQUELIN BROWNBALAJI ([id number])[facility] ([facility])[address] IMMATURE GRANS ABSOLUTE 0.1 10*3/uL High <0.1 [facility] Comment on above: Performed By: #### L [id number] ####Band Machine Operator: JAQUELIN BROWNBALAJI ([id number])[facility] ([facility])[address] Lymphocytes (Bld) [#/Vol] 1.2 10*3/uL Normal 1.0-4.3 [facility] Comment on above: Performed By: #### L [id number] ####Band Machine Operator: JAQUELIN BROWNBALAJI ([id number])[facility] ([facility])[address] Lymphocytes/100 WBC (Bld) 23.3 % Normal 15.0-45.0 [facility] Comment on above: Performed By: #### L [id number] ####Band Machine Operator: JAQUELIN RASCONYOEL ([id number])[facility] ([facility])[address] MCH (RBC) [Entitic mass] 29.0 pg Normal 26.0-34.0 [facility] Comment on above: Performed By: #### L [id number] ####Band Machine Operator: JAQUELIN BROWNOliviaYOEL ([id number])[facility] [place] ([facility])[address] MCHC 31.8 % Normal 30.5-36.0 [facility] Comment on above: Performed By: #### L [id number] ####Band Machine Operator: JAQUELIN BROWNBALAJI ([id number])[facility] [place] ([facility])[address] MCV (RBC) [Entitic vol] 91.1 fL Normal 77.0-99.0 [facility] Comment on above: Performed By: #### L [id number] ####Band Machine Operator: JAQUELIN CHEPE ([id number])[facility] [place] ([facility])[address] Monocytes (Bld) [#/Vol] 0.6 10*3/uL Normal 0.0-0.9 [facility] Comment on above: Performed By: #### L [id number] ####Band Machine Operator: JAQUELIN RASCONYOEL ([id number])[facility] [place] ([facility])[address] Monocytes/100 WBC (Bld) 11.9 % Normal 5.0-13.0 [facility] Comment on above: Performed By: #### L [id number] ####Band Machine Operator: JAQUELIN RASCNOYOEL ([id number])[facility] [place] ([facility])[address] NEUTROPHILS ABSOLUTE 3.0 10*3/uL Normal 1.8-7.5 [facility] Comment on above: Performed By: #### L [id number] ####Band Machine Operator: JAQUELIN RASCONYOEL ([id number])[facility] [place] ([facility])[address] Neutrophils/100 WBC (Bld) 60.8 % Normal 38.0-82.0 [facility] Comment on above: Performed By: #### L [id number] ####Band Machine Operator: JAQUELIN MO ([id number])[facility] ([facility])[address] NRBC 0.0 /100 WBCs Normal 0.0-2.0 [facility] Comment on above: Performed By: #### L [id number] ####Band Machine Operator: JAQUELIN MO ([id number])[facility] ([facility])[address] Platelet mean volume (Bld) [Entitic vol] 8.7 fL Low 9.0-12.7 [facility] Comment on above: Performed By: #### L [id number] ####Band Machine Operator: JAQUELIN MO ([id number])[facility] ([facility])[address] Platelets (Bld) [#/Vol] 216 10*3/uL Normal 140-440 [facility] Comment on above: Performed By: #### L [id number] ####Band Machine Operator: JAQUELIN MO ([phone])[facility] ([facility])[address] RBC (Bld) [#/Vol] 2.93 10*6/uL Low 4.40-5.90 [facility] Comment on above: Performed By: #### L [id number] ####Band Machine Operator: JAQUELIN MO ([id number])[facility] [place] ([facility])[address] WBC (Bld) [#/Vol] 5.0 10*3/uL Normal 3.6-10.7 [facility] Comment on above: Performed By: #### L [id number] ####Band Machine Operator: JAQUELIN MO ([id number])[facility] ([facility])[address] COMPLETE URINALYSIS WITH REF BETHANY TO CULTUREon 11-27-2024 BACTERIA (#/HPF) IN URINE Negative Normal Negative [facility] Comment on above: Performed By: #### L [id number] ####Band Machine Operator: JAQUELIN MO ([id number])[facility] ([facility])[address] BILIRUBIN, TOTAL PRESENCE IN URINE Negative Normal Negative [facility] Comment on above: Performed By: #### L [id number] ####Band Machine Operator: JAQUELIN MO ([id number])[facility] ([facility])[address] Clarity (U) Clear Normal Clear [facility] Comment on above: Performed By: #### L [id number] ####Band Machine Operator: JAQUELIN MO ([id number])[facility] ([facility])[address] Color (U) Light Yellow Normal Lt. Yellow [facility] Comment on above: Performed By: #### L [id number] ####Band Machine Operator: JAQUELIN MO ([id number])[facility] ([facility])[address] Glucose (U) [Mass/Vol] 500 mg/dL Abnormal Normal (<70) [facility] Comment on above: Performed By: #### L [id number] ####Band Machine Operator: JAQUELIN MO ([id number])[facility] ([facility])[address] HEMOGLOBIN PRESENCE IN URINE 0.03 mg/dL Abnormal Negative [facility] Comment on above: Performed By: #### L [id number] ####Band Machine Operator: JAQUELIN MO ([id number])[facility] ([facility])[address] Ketones Ql (U) Negative Normal Negative [facility] Comment on above: Performed By: #### L [id number] ####Band Machine Operator: JAQUELIN MO ([id number])[facility] ([facility])[address] LEUKOCYTE ESTERASE PRESENCE IN URINE BY TEST STRIP Negative Normal Negative [facility] Comment on above: Performed By: #### L [id number] ####Band Machine Operator: JAQUELIN MO ([id number])[facility] ([facility])[address] NITRITE PRESENCE IN URINE Negative Normal Negative [facility] Comment on above: Performed By: #### L [id number] ####Band Machine Operator: JAQUELIN MO ([id number])[facility] ([facility])[address] pH (U) 6.0 [pH] Normal 5.0-8.0 [facility] Comment on above: Performed By: #### L [id number] ####Band Machine Operator: JAQUELIN MO ([id number])[facility] ([facility])[address] Protein (U) [Mass/Vol] 100 mg/dL Abnormal Negative [facility] Comment on above: Performed By: #### L [id number] ####Band Machine Operator: JAQUELIN MO ([id number])[facility] ([facility])[address] [place] [address] RBC (#/HPF) IN URINE SEDIMENT 0-2 Normal 0-2 [facility] Comment on above: Performed By: #### L [id number] ####Band Machine Operator: JAQUELIN MO ([id number])[facility] ([facility])[address] Specific gravity (U) [Rel density] 1.013 Normal 1.005-1.030 [facility] Comment on above: Result Comment: FLAVIO Trejo COMMENTS: A specimen with <=10 WBC is not consistent with inflammation. This specimen will not reflex to a urine culture. Performed By: #### L [id number] ####Band Machine Operator: JAQUELIN MO ([id number])[facility] ([facility])[address] SQUAMOUS EPITHELIAL CELLS (#/HPF) IN URINE SEDIMENT Negative Normal 3-5 [facility] Comment on above: Performed By: #### L [id number] ####Band Machine Operator: JAQUELIN MO ([id number])[facility] [place] ([facility])[address] UROBILINOGEN (MG/DL) IN URINE Normal Normal Normal (0-1) [facility] Comment on above: Performed By: #### L [id number] ####Band Machine Operator: JAQUELIN MO ([id number])[facility] [place] ([facility])[address] WBC (LEUKOCYTE) (#/HPF) IN URINE SEDIMENT 0-2 Normal 0-5 [facility] Comment on above: Performed By: #### L [id number] ####Band Machine Operator: JAQUELIN MO ([id number])[facility] [place] ([facility])[address] COMPREHENSIVE METABOLIC PANE Tommie 11-27-2024 Albumin [Mass/Vol] 2.9 g/dL Low 3.4-4.8 [facility] Comment on above: Performed By: #### L [id number] ####Band Machine Operator: JAQUELIN MO ([id number])[facility] [place] ([facility])[address] ALP [Catalytic activity/Vol] 94 U/L Normal 40-150 [facility] Comment on above: Performed By: #### L [id number] ####Band Machine Operator: JAQUELIN MO ([id number])[facility] [place] ([facility])[address] ALT [Catalytic activity/Vol] 16 U/L Normal <40 [facility] Comment on above: Performed By: #### L [id number] ####Band Machine Operator: JAQUELIN MO ([id number])[facility] ([facility])[address] Anion gap [Moles/Vol] 11 mmol/L Normal 3-13 [facility] Comment on above: Performed By: #### L [id number] ####Band Machine Operator: JAQUELIN MO ([id number])[facility] [place] ([facility])[address] AST [Catalytic activity/Vol] 17 U/L Normal <34 [facility] Comment on above: Performed By: #### L [id number] ####Band Machine Operator: JAQUELIN MO ([id number])[facility] [place] ([facility])[address] Bilirubin [Mass/Vol] 0.4 mg/dL Normal <1.2 [facility] Comment on above: Performed By: #### L [id number] ####Band Machine Operator: JAQUELIN MO ([id number])[facility] ([facility])[address] Calcium [Mass/Vol] 9.0 mg/dL Normal 8.8-10.0 [facility] Comment on above: Performed By: #### L [id number] ####Band Machine Operator: JAQUELIN MO ([id number])[facility] ([facility])[address] Chloride [Moles/Vol] 106 mmol/L Normal 98-107 [facility] Comment on above: Performed By: #### L [id number] ####Band Machine Operator: JAQUELIN MO ([id number])[facility] ([facility])[address] [place] [address] [place] CO2 [Moles/Vol] 27 mmol/L Normal 23-31 [facility] Comment on above: Performed By: #### L [id number] ####Band Machine Operator: JAQUELIN MO ([id number])[facility] ([facility])[address] Creatinine [Mass/Vol] 6.86 mg/dL High 0.72-1.25 [facility] Comment on above: Performed By: #### L [id number] ####Band Machine Operator: JAQUELIN MO ([id number])[facility] ([facility])[address] GLOMERULAR FILTRATION RATE ML/MIN/1.73 SQ M.PREDICTED 8.3 mL/min/1.73m*2 Low >60.0 [facility] Comment on above: Result Comment: Calc ulation based on the Chronic Kidney Disease Epidemiology Collaboration (CKD-EPI) equation refit without adjustment for race Performed By: #### L [id number] ####Band Machine Operator: JAQUELIN MO ([id number])[facility] ([facility])[address] Glucose [Mass/Vol] 161 mg/dL High 82-115 [facility] Comment on above: Performed By: #### L [id number] ####Band Machine Operator: JAQUELIN MO ([id number])[facility] ([facility])[address] Potassium [Moles/Vol] 4.8 mmol/L Normal 3.5-5.1 [facility] Comment on above: Result Comment: [facility] potassium values may be up to 0.5 mmol/L lower than serum values. Performed By: #### L [id number] ####Band Machine Operator: JAQUELIN MO ([id number])[facility] ([facility])[address] Protein [Mass/Vol] 6.2 g/dL Low 6.4-8.3 [facility] Comment on above: Performed By: #### L [id number] ####Band Machine Operator: JAQUELIN MO ([id number])[facility] ([facility])[address] Sodium [Moles/Vol] 144 mmol/L Normal 136-145 [facility] Comment on above: Performed By: #### L [id number] ####Band Machine Operator: JAQUELIN MO ([id number])[facility] ([facility])[address] Urea nitrogen [Mass/Vol] 67 mg/dL High 9-23 [facility] Comment on above: Performed By: #### L [id number] ####Band Machine Operator: JAQUELIN MO ([id number])[facility] [place] ([facility])[address] Comprehensive metabolic 1998 panelOrdered By: David Hartley on 11-27-2024 Albumin [Mass/Vol] 2.9 g/dL Low 3.4 - 4.8 g/dL ALP [Catalytic activity/Vol] 94 U/L 40 - 150 U/L ALT [Catalytic activity/Vol] 16 U/L NINF - 40 U/L Anion gap [Moles/Vol] 11 mmol/L 3 - 13 mmol/L AST [Catalytic activity/Vol] 17 U/L NINF - 34 U/L Bilirubin [Mass/Vol] 0.4 mg/dL NINF - 1.2 mg/dL Calcium [Mass/Vol] 9 mg/dL 8.8 - 10. 0 mg/dL Chloride [Moles/Vol] 106 mmol/L 98 - 10 7 mmol/L CO2 [Moles/Vol] 27 mmol/L 23 - 31 mmol/L Creatinine [Mass/Vol] 6.86 mg/dL High 0.72 - 1.25 mg/dL GFR/1.73 sq M.predicted (S/P/Bld) [Vol rate/Area] 8.3 mL/min Low - [facility] Comment on above: Calculation based on the Chronic Kidney Disease Epidemiology Collaboration (CKD-EPI) equation refit without adjustment for race Glucose [Mass/Vol] 161 mg/dL High 82 - 115 mg/dL Interpretation and review of laboratory results Abnormal Potassium [Moles/Vol] 4.8 mmol/L 3.5 - 5.1 mmol/L Comment on above: Plasma potassium reji ues may be up to 0.5 mmol/L lower than serum values. Protein [Mass/Vol] 6.2 g/dL Low 6.4 - 8.3 g/dL Sodium [Moles/Vol] 144 mmol/L 136 - 145 mmol/L Urea nitrogen [Mass/Vol] 67 mg/dL High 9 - 23 mg/dL [facility] HBV surface Ab IA Qnon 11-27 Interpretation: <8.0 Non-Reactive 8.0-11.9 Equivocal >= 12.0 Ab Detected Note: If an equivocal result is interpreted, an antibody status is unable to be determined. Collect new specimen if clinically indicated. HBV surface Ag IA Qlon 11-27 Interpretation and review of laboratory results Normal HEPATITIS B SURFACE ANTIBODY on 11-27-2024 HEPATITIS B VIRUS SURFACE AB <8.0 Normal [facility] Comment on above: Result Comment: FLAVIO Trejo COMMENTS: Interpretation: <8.0 Non-Reactive 8.0-11.9 Equivocal >= 12.0 Ab Detected Note: If an equivocal result is interpreted, an antibody status is unable to be determined. Collect new specimen if clinically indicated. Performed By: #### L [id number], [id number] ####Band Machine Operator: ESAU SKINNER ([id number])[address] HEPATITIS B VIRUS SURFACE AB <8.0 Normal [facility] Comment on above: Result Comment: FLAVIO Trejo COMMENTS: Interpretation: <8.0 Non-Reactive 8.0-11.9 Equivocal >= 12.0 Ab Detected Note: If an equivocal result is interpreted, an antibody status is unable to be determined. Collect new specimen if clinically indicated. Performed By: #### L [id number], [id number] ####Band Machine Operator: ESAU SKINNER ([id number])[address] HEPATITIS B SURFACE ANTIGENo n 11-27-2024 HEPATITIS B VIRUS SURFACE AG Not detected Normal Not Detected [facility] Comment on above: Performed By: #### L [id number], [id number] ####Band Machine Operator: ESAU SKINNER ([id number])[address] HEPATITIS B VIRUS SURFACE AG Not detected Normal Not Detected [facility] Comment on above: Performed By: #### L [id number], [id number] ####Band Machine Operator: ESAU SKINNER ([id number])[facility] [place] [address] LEGIONELLA AND STREPTOCOCCUS URINE ANTIGENon 11-27-2024 LEGIONELLA AND STREPTOCOCCUS URINE ANTIGEN LEGIONELLA PNEUMOPHILA URINE ANTIGEN Reference Not Detected Not Detected STREPTOCOCCUS PNEUMONIAE URINE ANTIGEN Reference Not Detected Not Detected ORDER COMMENTS: Methodology: Lateral flow enzyme immunoassay This assay is approved for detection of antigens to Streptococcus pneumoniae and Legionella pneumophila serogroup 1; however, other L. pneumophila serogroups may also be detected. Methodology: Lateral flow enzyme immunoassay This assay is approved for detection of antigens to Streptococcus pneumoniae and Legionella pneumophila serogroup 1; however, other L. pneumophila serogroups may also be detected. Normal [facility] Comment on above: Performed By: #### L [id number] ####Band Machine Operator: ESAU SKINNER ([id number])[facility] ([facility])[address] [place] [address] Laboratory - Chemistry and C hemistry - challengeon 11-27-2024 Glucose [Mass/Vol] 158 mg/dL High 70 - 100 mg/dL Glucose [Mass/Vol] 137 mg/dL High 70 - 100 mg/dL Glucose [Mass/Vol] 142 mg/dL High 70 - 100 mg/dL Laboratory - Drug toxicology on 11-27-2024 Vancomycin trough [Mass/Vol] 21.8 ug/mL Laboratory - Microbiology an d Antimicrobial susceptibilityon 11-27-2024 HBV surface Ab IA Qn mIU/mL [facility] HBV surface Ag IA Ql Not detected Not Detected No Panel Informationon 11-27 Interpretation and review of laboratory results Abnormal Performed by: Felicita Daly, [address] [place] [address] CLIA ID: [id number] [facility] Extra Tube Hold for add-ons. Comment on above: Auto resulted. [facility] Interpretation and review of laboratory results Abnormal Performed by: Felicita Daly, [address] [place] [address] CLIA ID: [id number] [facility] Interpretation and review of laboratory results Abnormal Performed by: Felicita Daly, [address] [place] [address] CLIA ID: [id number] [facility] No Panel InformationOrdered By: Elayne Ladd on 11-27-2024 Interpretation and review of laboratory results Normal Legionella pneumophila Ag Not detected Not Detected Streptococcus pneumoniae Ag Not detected Not Detected Methodology: Lateral flow enzyme immunoassay This assay is approved for detection of antigens to Streptococcus pneumoniae and Legionella pneumophila serogroup 1; however, other L. pneumophila serogroups may also be detected. Methodology: Lateral flow enzyme immunoassay This assay is approved for detection of antigens to Streptococcus pneumoniae and Legionella pneumophila serogroup 1; however, other L. pneumophila serogroups may also be detected. [facility] Nursing Noteon 11-27-2024 Nursing Note Patient Name: José Manuel Ashton Patient : 1960 Acct: [id number] Date of Admission: 11/25/2024 Room[facility]: [facility] A Code Status: Full Code Allergies: Allergies[1] Diagnosis: Problem List[2] Treatment: Hemodialysis 1:1 Priority: Routine Location: Bedside Diabetic: Yes NPO: No Isolation Precautions: Dialysis Consent for Treatment Verified: Yes Blood Consent Verified: Not Applicable Time out performed prior to access at 1635. Report Received from Primary RN at 1545. Primary RN (First Initial, Last Name, Title): Sena Oreilly RN Incapacitated Nurse Education Completed: Yes HBsAg ONLY: Date Drawn: November 27, 2024 Results: Negative HBsAb: Date Drawn: November 28, 2024 Results: Susceptible <10 Order Dialyzer: Nipro Na+ Modeling: Not Applicable Dialysate Temperature (C): 36 Blood Flow Rate (BFR): 350 Dialysate Flow Rate (DFR): 600 Access to be Utilized Access: Tunneled Catheter Location: Subclavian Side: Right Needle gauge: Not Applicable + Bruit/Thrill: Not Applicable First Use X-ray Verified: Yes OK to use line order: Yes Site Assessment: Signs and Symptoms of Infection/Inflammation: Yes, see line below If yes: Redness Dressing: facility dressing Site Prep: Medical Aseptic Technique Dressing Changed this Treatment: Yes If yes, by whom: Katherin ZHANG Date of Last Dressing Change: November 27, [address]?: Yes Red Alcohol Caps in place?: Yes Gauze Dressing?: NA Non-Dialysis Use?: No Comment: Flows: Good If access problem, who was notified: Pre and Post-Assessment Patient Vitals for the past 8 hrs: Level of Consciousness Oriented X Heart Rhythm O2 Device Bilateral Breath Sounds Skin Color Skin Condition/Temp Edema Generalized Edema Pain Interventions 11/27/24 0900 -- -- -- -- Diminished -- -- Generalized Non-pitting -- 11/27/24 1212 -- -- -- -- -- -- -- -- -- Medication (See MAR) 11/27/24 1630 Alert (0) 4 Regular None (Room air) Diminished [address] Warm;Dry -- -- -- Labs Lab Results Component Value Date/Time WBC 5.0 11/27/2024 0339 HGB 8.5 (L) 11/27/2024 0339 HCT 26.7 (L) 11/27/2024 0339 PLT 216 11/27/2024 0339 NA 144 11/27/2024 0339 K 4.8 11/27/2024 0339 CL 106 11/27/2024 0339 CO2 27 11/27/2024 0339 BUN 67 (H) 11/27/2024 0339 CREATININE 6.86 (H) 11/27/2024 0339 CALCIUM 9.0 11/27/2024 0339 PHOS 2.9 10/01/2023 1115 IV Drips and Rate/Dose Continuous Meds[3] Safety - Before each treatment: Dialysis Machine No.: [id number] RO Machine Number: [id number] Dialyzer Lot No.: [id number] Tubing Lot Number: [id number] [employer] Secure: Yes Venous Parameters Set: Yes Arterial Parameters Set: Yes NS Bag: Yes Saline Line Double Clamped: Yes Dialyzer: Nipro Prime Volume (mL): 200 mL RO Machine Number: [id number] RO Machine Log Sheet Completed: Yes Conductivity Meter Serial #: [id number] Machine Functioning Alarm Free? Yes Dialysis Bath: Chlorine Testing - Before each treatment and every 4 hours: Weight Height: 177.8 cm (5' 10") (11/26/24 1501) Weight: 113 kg (250 lb) (11/26/24 1501) BMI (Calculated): 35.87 (11/26/24 1501) 1st check: less than 0.1 ppm at: 1625 2nd check: less than 0.1 ppm at: 1835 3rd check: Not Applicable (if greater than 0.1 ppm, then check every 30 minutes from secondary) Access Flows and Pressures Patient Vitals for the past 8 hrs: Blood Flow Rate (mL/min) Ultrafiltration Rate (ml/hr) Arterial Pressure (mmHg) Venous Pressure (mmHg) TMP DFR Access Visible Intra-Hemodialysis Comments 11/27/24 1640 200 mL/min 830 ml/hr -40 mmHg 40 mmHg 110 600 Yes tx started, lines secured, Primary RN at door. 11/27/24 1645 350 mL/min 830 ml/hr -110 mmHg 110 mmHg 120 600 Yes BFR increased, Uf removed 113 Vital Signs Patient Vitals for the past 24 hrs: BP Temp Temp src Pulse Resp SpO2 11/27/24 1645 136/65 -- -- 80 -- -- 11/27/24 1640 145/74 -- -- 82 -- -- 11/27/24 1630 129/63 36 ?C (96.8 ?F) -- 81 16 96 % 11/27/24 0809 150/88 (!) 35.9 ?C (96.7 ?F) Temporal 90 18 96 % 11/27/24 0728 -- -- -- 90 -- -- 11/26/24 2008 147/67 37.1 ?C (98.7 ?F) Temporal 95 20 93 % 11/26/24 1700 -- -- -- -- -- 92 % Post-Dialysis Arterial Catheter Locking Solution: Heparin (1000units:1ml) Volume (ml): 1.8 Venous Catheter Locking Solution: Heparin (1000units:1ml) Volume (ml): 1.9 Charge: Provider Notification Handoff complete and report given to Primary RN at 1955. Primary RN (First Initial, Last Name, Title): Sena oreilly Education Person Educated: Patient Knowledge Base: Minimal Barriers to Learning?: None Preferred method of Learning: Oral Topic(s): Access Care, Signs and Symptoms of Infection, Procedural, Potassium, and Diet Teaching Tools: Explanation Response to Education: Requires Follow-up [1] Allergies Allergen Reactions Penicillins Unknown Pt states he thinks he had a reaction as a ch (more content not included)... Normal [facility] Progress Noteon 11-27-2024 Progress Note ------ -- Attestation signed by Tosha Barriga MD at 11/27/2024 5:03 PM I have reviewed the above assessment and plan with the WILDLIFE CONSERVATIONIST. I agree with above note. HD today. Sees Dr. Abiel dudley outpatient. We cover his patients here. -- [facility] Progress Note Subjective/ 63 y.o. year old male who we are seeing in consultation for ESRD. Interval History Admitted for weakness, chills, and lethargy Resting in bed, easily arousable Reports generalized pain BP stable Adequate PO intake ROS Otherwise negative No interval changes to PFSH. All interval notes/labs/imaging reviewed. Objective/ Vitals: 11/26/24 1600 11/26/24 1700 11/26/24200711/27/24 0809 BP: 147/67 150/88 BP Location: Left arm Right arm Patient Position: Sitting Sitting Pulse: 95 90 Resp: 20 18 Temp: 37.1 ?C (98.7 ?F) (!) 35.9 ?C (96.7 ?F) TempSrc: Temporal Temporal SpO2: 96% 92% 93% 96% Weight: Height: 24HR INTAKE/OUTPUT: Intake/Output Summary (Last 24 hours) at 11/27/2024 1222 Last data filed at 11/26/2024 2336 Gross per 24 hour Intake 400 ml Output 1500 ml Net -1100 ml Physical Exam Scheduled Meds:Scheduled Meds[1] Continuous Infusions:Continuous Meds[2] PRN Meds:.PRN Meds[3] Data/ Recent Labs 11/25/24 1252 11/27/24 0339 WBC 6.9 5.0 HGB 9.2* 8.5* HCT 28.8* 26.7* MCV 91.4 91.1 PLT 220 216 Recent Labs 11/25/24 1252 11/26/24 0457 11/27/24 0339 NA 139 140 144 K 4.4 4.4 4.8 CL 99 105 106 CO2 24 27 GLUCOSE 178* 123* 161* MG 2.0 -- -- BUN 49* 56* 67* CREATININE 5.14* 5.70* 6.86* Assessment/ 63 y.o. male with ESRD N18.6 HTN in CKD I12.9 Anemia in CKD D63.1 T2DM in CKD E11.22 Lethargy R53.83 Dependence on hemodialysis Plan/ - HD schedule is M-F at nursing facility, will run session today and attempt to remove 2 L. Patient's DW at facility was recently increased from 112.5 kg to 115 kg, he was 113 kg on admission. - Blood cultures drawn 11/25: NGTD - Strict I&Os - Daily weight - Continue with renal diet - ESRD hgb goal > 10 - Okay for prn transfusions for hgb < 7 - Avoid nephrotoxins and IV contrast dye - Dose all meds per GFR < 15 - Rest of management per primary team Plan d/w dialysis team We will follow. Please do not hesitate to call with any questions or concerns. [facility] Office This note is not finalized until authorized by Attending physician. [1] amLODIPine, 5 mg, Oral, Daily cyclobenzaprine, 5 mg, Oral, TID heparin, 5,000 Units, SubCUTAneous, 2 times per day hydrALAZINE, 50 mg, Oral, BID insulin glargine, 10 Units, SubCUTAneous, Nightly insulin lispro, 0-6 Units, SubCUTAneous, TID WC insulin lispro, 3 Units, SubCUTAneous, TID WC oxyCODONE-acetaminophen, 1 tablet, Oral, Once vancomycin (Vancocin) intermittent dosing (placeholder), , Other, See admin instructions [2] [3] PRN medications: acetaminophen OR acetaminophen, dextrose, dextrose, diazePAM, glucagon (rDNA), glucose, ipratropium-albuterol, naloxone, ondansetron ODT OR ondansetron, oxyCODONE, polyethylene glycol (PEG) [address] [facility] Progress Note Nutrition rescreen completed. Pt referred to RD for ESRD patient on HD. [facility] Progress Note Department of Adventure Challenge Instructor al Medicine Division of Endocrinology, Diabetes, & Metabolism Endocrinology Note Patient Name: José Manuel Ashton : 1960 AGE: 63 y.o. Room[facility]: [facility] Admission Date: 11/25/2024 Visit Date: 11/27/2024 Reason for Endocrine Consult: DM/Pt on U300 insulin Provider/Team Requesting Consult: Dr. 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 ICU goal <180 GMF goal <150 POCT BG ACHS Hypoglycemia management per protocol Carb controlled diet ANTICIPATED ENDOCRINE HOME GOING RECOMMENDATIONS: Optimized for Discharge from Endocrine standpoint: No Home Going Endocrine Rx Recommendations-- Toujeo Current dose on day of discharge Humalog Current dose on day of discharge Outpt Follow Up-- [facility] Endocrinology SUBJECTIVE/HPI: CHIEF COMPLAINT: Chief Complaint Patient presents with Altered Mental Status Pt presents to ED via EMS from [facility] for responding slowly and indicates he is cold. José Manuel Ashton is a 63 yo male who presented to ED from [facility] with Tremor, chills and delayed response. Patient has baseline cognitive limitations but is able to answer questions. PMH: ESRD on dialysis, DM Type of DM: 2 Onset of DM: Before 2020 Home DM Medication Regimen: Toujeo 18 units daily Humalog 8 units TID AC plus medium dose sliding scale DM control (last A1c/glucose data): Lab Results Component Value Date HGBA1C 5.5 11/26/2024 Interval history: Patient alert and oriented lying in bed - Responses delayed when asking about orientation. BGL reviewed and listed below VSS on RA Diet: Carb Tolerating diet Denies n/v, abdominal pain, chest pain, shortness of breath Endorses weakness when ambulating and feels confused on IVABX 11/26 Patient alert sitting up in bed [facility] not sure [facility] doses at [facility] - Does not give his own injections. Reports blood sugars are checked before meals but not sure what blood sugar levels are. Carb controlled diet Patient reports tremors, chills Feels unsteady on feet. PT was stopped at SNF per patient. Patient on IV vanc Glucose Date/Time Value Ref Range Status 11/26/2024 08:00 PM 180 (H) 70 - 100 mg/dL Final 11/26/2024 04:45 PM 206 (H) 70 - 100 mg/dL Final 11/26/2024 11:50 AM 174 (H) 70 - 100 mg/dL Final 11/25/2024 10:17 PM 187 (H) 70 - 100 mg/dL Final 11/25/2024 08:46 PM 167 (H) 70 - 100 mg/dL Final 11/25/2024 06:45 PM 119 (H) 70 - 100 mg/dL Final Previously used medications: Metformin Lantus Actos Trulicity Ozempic Review of Systems Constitutional: Positive for chills and fatigue. Respiratory: Negative for shortness of breath. Cardiovascular: Negative for chest pain and palpitations. Neurological: Positive for weakness. Negative for tremors. ROS negative except for those mentioned in HPI. OBJECTIVE: Vitals: 11/26/24 1557 11/26/24 1600 11/26/24 1700 11/26/242007 BP: 147/67 BP Location: Left arm Patient Position: Sitting Pulse: 95 Resp: 20 Temp: 37.1 ?C (98.7 ?F) TempSrc: Temporal SpO2: 97% 96% 92% 93% Weight: Height: Physical Exam Vitals and nursing note reviewed. Constitutional: General: He is not in acute distress. Appearance: He is not toxic-appearing or diaphoretic. HENT: Head: Normocephalic. Nose: Nose normal. Mouth/Throat: Mouth: Mucous membranes are moist. Eyes: Conjunctiva/sclera: Conjunctivae normal. Cardiovascular: Rate and Rhythm: Normal rate and regular rhythm. Pulses: Normal pulses. Heart sounds: Normal heart sounds. Pulmonary: Effort: Pulmonary effort is normal. Musculoskeletal: Right lower leg: No edema. Left lower leg: No edema. Skin: General: Skin is warm. Neurological: Mental Status: He is alert. Psychiatric: Mood and Affect: Mood normal. Behavior: Behavior normal. 24 hour intake/output: Intake/Output Summary (Last 24 hours) at 11/27/2024 0754 Last data filed at 11/26/2024 2336 Gross per 24 hour Intake 400 ml Output 1500 ml Net -1100 ml Diet: Adult diet Regular; 5 carb choices (75 gm/meal) Medications (as per EMR): HomeMeds: Current Outpatient Medications Medication Instructions acetaminophen (TYLENOL) 325 mg, Every 6 hours PRN bisacodyl (DULCOLAX) 5 mg, Daily PRN bisacodyl (DULCOLAX) 10 mg, Daily PRN cyclobenzaprine (FLEXERIL) 5 mg, 3 times daily PRN diazePAM (VALIUM) 10 mg, Every 8 hours PRN hydrALAZINE (APRESOLINE) 50 mg, 2 times daily oxyCODONE (ROXICODONE) 10 mg, Every 6 hours PRN Scheduled Meds:Schedul (more content not included)... Normal [facility] Urinalysis complete panel (U )Ordered By: Nusrat Zelaya on 11-27-2024 Bacteria LM.HPF (Urine sed) [#/Area] Negative Negative /HPF Bilirubin Ql (U) Negative Negative mg/dL Clarity (U) Clear Clear [facility] Color (U) Light Yellow Lt. Yellow Epithelial cells.squamous LM.HPF (Urine sed) [#/Area] Negative Glucose Ql (U) 500 mg/dL Abnormal Normal (<70) Hemoglobin Ql (U) 0.03 mg/dL Abnormal Negative Interpretation and review of laboratory results Abnormal Ketones (U) [Mass/Vol] Negative Negative mg/dL Leukocyte esterase Test strip Ql (U) Negative Negative Norm/uL Nitrite Ql (U) Negative Negative pH (U) 6.0 [pH] 5.0 - 8.0 pH Protein (U) [Mass/Vol] 100 mg/dL Abnormal Negative RBC LM.HPF (Urine sed) [#/Area] 0-2 Specific gravity (U) [Rel density] 1.013 1.005 - 1.030 Urobilinogen (U) [Mass/Vol] Normal Normal (0-1) mg/dL WBC LM.HPF (Urine sed) [#/Area] 0-2 A specimen with <=10 WBC is not consistent with inflammation. This specimen will not reflex to a urine culture. [facility] VANCOMYCIN, AUC TIMED DOSING on 11-27-2024 VANCOMYCIN, AUC 21.8 ug/mL Normal [facility] Comment on above: Result Comment: FLAVIO Trejo COMMENTS: Please draw level this morning prior to HD. Toxicity is seen at concentrations >80-100 ug/mL Therapeutic (Peak) range: 20-40 Therapeutic (Trough) range: 5-10 Performed By: #### L [id number] ####Band Machine Operator: JAQUELIN MO ([id number])[facility] (SBHLAB)[address] Vancomycin trough [Mass/Vol] on 11-27-2024 Toxicity is seen at concentrations >80-100 ug/mL Therapeutic (Peak) range: 20-40 Therapeutic (Trough) range: 5-10 [facility] COMPREHENSIVE METABOLIC PANE Tommie 11-26-2024 Albumin [Mass/Vol] 3.0 g/dL Low 3.4-4.8 [facility] Comment on above: Performed By: #### L AB17, [id number] ####Band Machine Operator: JAQUELIN MO ([id number])[facility] (SB[facility]AB)[address] ALP [Catalytic activity/Vol] 95 U/L Normal 40-150 [facility] Comment on above: Performed By: #### L AB17, [id number] ####Band Machine Operator: JAQUELIN MO ([id number])[facility] (SB[facility])[address] ALT [Catalytic activity/Vol] 14 U/L Normal <40 [facility] Comment on above: Performed By: #### L AB17, [id number] ####Band Machine Operator: JAQUELIN MO ([id number])[facility] (SB[facility])[address] Anion gap [Moles/Vol] 11 mmol/L Normal 3-13 [facility] Comment on above: Performed By: #### L AB17, [id number] ####Band Machine Operator: JAQUELIN MO ([id number])[facility] (SB[facility])[address] AST [Catalytic activity/Vol] 21 U/L Normal <34 [facility] Comment on above: Performed By: #### L AB17, [id number] ####Band Machine Operator: JAQUELIN MO ([id number])[facility] ([facility])[address] Bilirubin [Mass/Vol] 0.4 mg/dL Normal <1.2 [facility] Comment on above: Performed By: #### L AB17, [id number] ####Band Machine Operator: JAQUELIN MO ([id number])[facility] (HLAB)[address] Calcium [Mass/Vol] 9.0 mg/dL Normal 8.8-10.0 [facility] Comment on above: Performed By: #### L AB17, [id number] ####Band Machine Operator: JAQUELIN MO ([id number])[facility] (SB[facility])[address] [place] [address] [place] Chloride [Moles/Vol] 105 mmol/L Normal 98-107 [facility] Comment on above: Performed By: #### L AB17, [id number] ####Band Machine Operator: JAQUELIN MO ([id number])[facility] (SB[facility])[address] [place] [address] [place] CO2 [Moles/Vol] 24 mmol/L Normal 23-31 [facility] Comment on above: Performed By: #### Roma WHITE17, [id number] ####Band Machine Operator: JAQUELIN MO ([id number])[facility] A[facility]USTA (HLAB)[address] Creatinine [Mass/Vol] 5.70 mg/dL High 0.72-1.25 [facility] Comment on above: Performed By: #### Roma GLYNN, [id number] ####Band Machine Operator: JAQUELIN MO ([id number])[facility] ([facility])[address] GLOMERULAR FILTRATION RATE ML/MIN/1.73 SQ M.PREDICTED 10.4 mL/min/1.73m*2 Low >60.0 [facility] Comment on above: Result Comment: Calc ulation based on the Chronic Kidney Disease Epidemiology Collaboration (CKD-EPI) equation refit without adjustment for race Performed By: #### Roma GLYNN, [id number] ####Band Machine Operator: JAQUELIN MO ([id number])[facility] ([facility])[address] Glucose [Mass/Vol] 123 mg/dL High 82-115 [facility] Comment on above: Performed By: #### Roma GLYNN, [id number] ####Band Machine Operator: JAQUELIN MO ([id number])[facility] ([facility])[address] Potassium [Moles/Vol] 4.4 mmol/L Normal 3.5-5.1 [facility] Comment on above: Result Comment: [facility] potassium values may be up to 0.5 mmol/L lower than serum values. Performed By: #### Roma GLYNN, [id number] ####Band Machine Operator: JAQUELIN MO ([id number])[facility] ([facility])[address] Protein [Mass/Vol] 6.4 g/dL Normal 6.4-8.3 [facility] Comment on above: Performed By: #### Roma WHITE17, [id number] ####Band Machine Operator: JAQUELINGAYLE MO ([id number])[facility] DALY (SBHLAB)[address] Sodium [Moles/Vol] 140 mmol/L Normal 136-145 [facility] Comment on above: Performed By: #### L AB17, [id number] ####Band Machine Operator: JAQUELIN MO ([id number])[facility] (SBHLAB)[address] Urea nitrogen [Mass/Vol] 56 mg/dL High 9-23 [facility] Comment on above: Performed By: #### L AB17, [id number] ####Band Machine Operator: JAQUELIN MO ([id number])[facility] (SB[facility])[address] Comprehensive metabolic 1998 panelon 11-26-2024 Albumin [Mass/Vol] 3 g/dL Low 3.4 - 4.8 g/dL ALP [Catalytic activity/Vol] 95 U/L 40 - 150 U/L ALT [Catalytic activity/Vol] 14 U/L NINF - 40 U/L Anion gap [Moles/Vol] 11 mmol/L 3 - 13 mmol/L AST [Catalytic activity/Vol] 21 U/L [facility] - [facility] U/L Bilirubin [Mass/Vol] 0.4 mg/dL NINF - 1.2 mg/dL Calcium [Mass/Vol] 9 mg/dL 8.8 - 10. 0 mg/dL [facility] Chloride [Moles/Vol] 105 mmol/L 98 - 10 7 mmol/L CO2 [Moles/Vol] 24 mmol/L 23 - 31 mmol/L Creatinine [Mass/Vol] 5.7 mg/dL High 0.72 - 1.25 mg/dL GFR/1.73 sq M.predicted (S/P/Bld) [Vol rate/Area] 10.4 mL/min Low - [facility] Comment on above: Calculation based on the Chronic Kidney Disease Epidemiology Collaboration (CKD-EPI) equation refit without adjustment for race Glucose [Mass/Vol] 123 mg/dL High 82 - 115 mg/dL Interpretation and review of laboratory results Abnormal Potassium [Moles/Vol] 4.4 mmol/L 3.5 - 5.1 mmol/L Comment on above: Plasma potassium reji ues may be up to 0.5 mmol/L lower than serum values. Protein [Mass/Vol] 6.4 g/dL 6.4 - 8.3 g/dL Sodium [Moles/Vol] 140 mmol/L 136 - 145 mmol/L Urea nitrogen [Mass/Vol] 56 mg/dL High 9 - 23 mg/dL [facility] Consulton 11-26-2024 Consult ------ -- Attestation signed by Tosha Brariga MD at 11/26/2024 9:51 PM I have reviewed the above assessment and plan with the WILDLIFE CONSERVATIONIST. I agree with above note. HD tomorrow. Patient established with Dr Abiel Dudley outpatient. We cover his patients here. -- [facility] Consultation Note Reason for consultation: ESRD and management of dialysis Chief Complaint: weakness, chills, lethargy History of Presenting Illness Patient is a 63 y.o. male with past medical history significant for HTN, ESRD, T2DM, HLD, Depression, and anemia, who presents with chief complaint listed above. He had been at his nursing facility and had increasing lethargy, weakness and chills. He is on HD M-. Facility staff noticed he was "not acting like himself". CXR on admission was unremarkable, Nephrology is consulted for evaluation and management of ESRD and hemodialysis. Patient follows with Dr. Dudley at [facility]. He receives HD at his facility M-F to a DW of 115 kg. Last HD treatment was yesterday, 11/25. Patient's access is a TDC R IJ. No need for urgent dialysis and will plan for therapy tomorrow. Review of Systems All 12 systems have been reviewed and are negative except for what is mentioned in the HPI. Allergies Penicillins Family History Family History[1] Social History Social History[2] Medications Prescriptions Prior to Admission[3] Current Medications: Scheduled Meds[4] Continuous Infusions:Continuous Meds[5] PRN Meds:PRN Meds[6] Physical Exam Vitals: 11/26/24 0233 11/26/24 0858 11/26/24 1444 11/26/24 1501 BP: 104/66 137/56 154/73 BP Location: Right arm Right arm Patient Position: Lying Pulse: 81 82 90 Resp: 16 18 18 Temp: 36.5 ?C (97.7 ?F) 36.2 ?C (97.1 ?F) TempSrc: Oral Temporal SpO2: 100% 97% 99% Weight: 113 kg (250 lb) Height: 1.778 m (5' 10") 24 HR INTAKE/OUTPUT: Intake/Output Summary (Last 24 hours) at 11/26/2024 1615 Last data filed at 11/25/2024 1753 Gross per 24 hour Intake 500 ml Output -- Net 500 ml General: Ill appearing, cooperative to history and physical exam. Head: NCAT Eye: anicteric sclera Mouth: mucus membrane moist Neck: Supple Chest: B/L equal air entry, no crackles, no accessory muscles usage. CV: s1s2 heard Abdomen: NT, non distended, soft, + bs, No palpable masses Extremities: No peripheral edema, no cyanosis or clubbing Skin: Warm, no rash Neurological: A&O x 3, speech clear coherent Psychiatric: normal insight and judgement, good recall Access: TDC R IJ Data Recent Labs 11/25/24 1252 WBC 6.9 HGB 9.2* HCT 28.8* MCV 91.4 PLT 220 Recent Labs 11/25/24 1252 11/26/24 0457 NA 139 140 K 4.4 4.4 CL 99 105 CO2 25 24 GLUCOSE 178* 123* MG 2.0 -- BUN 49* 56* CREATININE 5.14* 5.70* Albumin: No components found for: "LABALBU" Calcium: Lab Results Component Value Date CALCIUM 9.0 11/26/2024 No results found for: "APPEARANCE", "COLORU", "LABSPEC", "LABPH", "URINE", "GLUCOSEU", "UROBILINOGEN", "BILIRUBINUR", "OCBU" Assessment 63 y.o. male with ESRD N18.6 HTN in CKD I12.9 Anemia in CKD D63.1 T2DM in CKD E11.22 Lethargy R53.83 Dependence on hemodialysis RECOMMENDATIONS: - Will plan for HD tomorrow. HD schedule -, last session was yesterday 11/25. I was able to get in contact with his dialysis nurse at [facility] and she confirmed his DW had recently been increased from 112.5 kg to 115 kg. Weight on admission was 113 kg - Strict I&Os - Daily weight - Continue with renal diet - ESRD hgb goal > 10 - Okay for prn transfusions for hgb < 7 - Avoid nephrotoxins and IV contrast dye - Dose all meds per GFR < 15 - Rest of management per primary team We will follow. Thank you for asking us to participate in the management of your patient, please do not hesitate to contact me for any concerns regarding my recommendations as outlined above. [facility] Office [1] No family history on file. [2] Social History Socioeconomic History Marital status: Single Social Drivers of Health Financial Resource Strain: Medium Risk (05/24/2023) Received from [facility] Overall Financial Resource Strain (CARDIA) Difficulty of Paying Living Expenses: Somewhat hard Food Insecurity: No Food Insecurity (11/26/2024) Hunger Vital Sign Worried About Running Out of Food in the Last Year: Never true Ran Out of Food in the Last Year: Never true Transportation Needs: No Transportation Needs (11/26/2024) PRAPARE - Transportation Lack of Transportation (Medical): No Lack of Transportation (Non-Medical): No Physical Activity: Insufficiently Active (12/28/2021) Received from [facility] Exercise Vital Sign Days of Exercise per Week: 7 days Minutes of Exercise p (more content not included)... Normal [facility] Consult Department of Adventure Challenge Instructor al Medicine Division of Endocrinology, Diabetes, & Metabolism Endocrinology Note Patient Name: José Manuel Ashton : 1960 AGE: 63 y.o. Room/Bed: Admission Date: 11/25/2024 Visit Date: 11/26/2024 Reason for Endocrine Consult: DM/Pt on U300 insulin Provider/Team Requesting Consult: Dr. Hills PCP: Brittaney Garcia MD Outpt [place] Cloth Sewer: Yes [facility] ASSESSMENT: Type 2 diabetes mellitus with hyperglycemia, with chcf insulin use PLAN: Start Lantus 10 units nightly Start Humalog 3 units TID with meals Decrease humalog sliding scale to Low dose TID with meals. ICU goal <180 GMF goal <150 POCT BG ACHS Hypoglycemia management per protocol Carb controlled diet ANTICIPATED ENDOCRINE HOME GOING RECOMMENDATIONS: Optimized for Discharge from Endocrine standpoint: No Home Going Endocrine Rx Recommendations-- Toujeo 18 units daily Humalog 8 units TID AC plus medium dose sliding scale Outpt Follow Up-- [facility] Endocrinology SUBJECTIVE/HPI: CHIEF COMPLAINT: Chief Complaint Patient presents with Altered Mental Status Pt presents to ED via EMS from [facility] for responding slowly and indicates he is cold. José Manuel Ashton is a 63 yo male who presented to ED from [facility] with Tremor, chills and delayed response. Patient has baseline cognitive limitations but is able to answer questions. PMH: ESRD on dialysis, DM Type of DM: 2 Onset of DM: Before 2020 Home DM Medication Regimen: Toujeo 18 units daily Humalog 8 units TID AC plus medium dose sliding scale DM control (last A1c/glucose data): Lab Results Component Value Date HGBA1C 5.5 11/26/2024 Interval history: Patient alert sitting up in bed Patient reports he resides at [facility] Patient not sure of insulin doses at [facility] - Does not give his own injections. Reports blood sugars are checked before meals but not sure what blood sugar levels are. Carb controlled diet Patient reports tremors, chills Feels unsteady on feet. PT was stopped at [facility] per patient. Glucose Date/Time Value Ref Range Status 11/25/2024 10:17 PM 187 (H) 70 - 100 mg/dL Final 11/25/2024 08:46 PM 167 (H) 70 - 100 mg/dL Final 11/25/2024 06:45 PM 119 (H) 70 - 100 mg/dL Final Previously used medications: Metformin Lantus Actos Trulicity Ozempic Review of Systems Constitutional: Positive for chills. Respiratory: Negative for shortness of breath. Cardiovascular: Negative for chest pain and palpitations. Neurological: Positive for tremors. ROS negative except for those mentioned in HPI. OBJECTIVE: Vitals: 11/25/24 1804 11/25/24 2047 11/25/24 2219 11/26/24 0233 BP: 132/62 (!) 99/47 119/51 104/66 BP Location: Left arm Left arm Patient Position: Lying Lying Pulse: 80 85 83 81 Resp: 18 16 18 16 Temp: TempSrc: SpO2: 100% 95% 100% 100% Weight: Height: Physical Exam Vitals and nursing note reviewed. Constitutional: General: He is not in acute distress. Appearance: He is not toxic-appearing or diaphoretic. HENT: Head: Normocephalic. Nose: Nose normal. Mouth/Throat: Mouth: Mucous membranes are moist. Eyes: Conjunctiva/sclera: Conjunctivae normal. Cardiovascular: Rate and Rhythm: Normal rate and regular rhythm. Pulses: Normal pulses. Heart sounds: Normal heart sounds. Pulmonary: Effort: Pulmonary effort is normal. Musculoskeletal: Right lower leg: No edema. Left lower leg: No edema. Skin: General: Skin is warm. Neurological: Mental Status: He is alert. Psychiatric: Mood and Affect: Mood normal. Behavior: Behavior normal. 24 hour intake/output: Intake/Output Summary (Last 24 hours) at 11/26/2024 0823 Last data filed at 11/25/2024 1753 Gross per 24 hour Intake 500 ml Output -- Net 500 ml Diet: Adult diet Regular; 5 carb choices (75 gm/meal) Medications (as per EMR): HomeMeds: Current Outpatient Medications Medication Instructions acetaminophen (TYLENOL) 325 mg, Oral, Every 6 hours PRN bisacodyl (DULCOLAX) 5 mg, Oral, Daily PRN, Do not crush, chew, or split. bisacodyl (DULCOLAX) 10 mg, Rectal, Daily PRN hydrALAZINE (APRESOLINE) 50 mg, Oral, 2 times daily Scheduled Meds:Scheduled Meds[1] Continuous Infusions:Continuous Meds[2] PRN Meds:PRN Meds[3] Diagnostic Workup: I reviewed pertinent Laboratory results, Radiographic results, and Other Clinical Notes at the time of today's encounter. Labs: No components found for: LABA1C No components found for: EAG Lab Results Component Value Date NA 140 11/26/2024 K 4.4 11/26/2024 CL 105 11/26/2024 CO2 24 11/26/2024 BUN 56 (H) 11/26/2024 CREATININE 5.70 (H) 11/26/2024 GLUCOSE 123 (H) 11/26/2024 CALCIUM 9.0 11/26/2024 No results found for: "CHLPL", "CHOL" No results found for: TRIG No results found for: HDL No results found for: LDLCALC No results found for: VLDL (more content not included)... Normal [facility] HEMOGLOBIN A1Con 11-26-2024 Glucose [Mass/Vol] 111 mg/dL Normal [facility] Comment on above: Result Comment: FLAVIO Trejo COMMENTS: If not done within the last 3 mos HbA1c values of 5.7-6.4 percent indicate an increased risk for developing diabetes mellitus. HbA1c values greater than or equal to 6.5 percent are diagnostic of diabetes mellitus. For diagnosis of diabetes in individuals without unequivocal hyperglycemia, results should be confirmed by repeat testing. Performed By: #### L [id number] ####Band Machine Operator: JAQUELIN MO ([phone])[facility] ([facility])[address] [place] [address] HEMOGLOBIN A1C 5.5 %HbA1C Normal <5.7 [facility] Comment on above: Result Comment: Norm al less than 5.7% Prediabetes 5.7% to 6.4% Diabetes 6.5% or higher --HgbA1C levels may not be accurate in patients who have renal disease, received recent blood transfusions, are anemic, or who have dyshemoglobinemia. Performed By: #### L AB90 ####Band Machine Operator: JAQUELIN MO ([id number])[facility] ([facility])[address] Laboratory - Chemistry and C hemistry - challengeon 11-26-2024 Glucose [Mass/Vol] 180 mg/dL High 70 - 100 mg/dL Glucose [Mass/Vol] 206 mg/dL High 70 - 100 mg/dL Glucose [Mass/Vol] 174 mg/dL High 70 - 100 mg/dL Average glucose Estimated from glycated hemoglobin (Bld) [Mass/Vol] 111 mg/dL Procalcitonin [Mass/Vol] 0.3 ng/mL High NINF - 0.07 ng/mL Laboratory - Drug toxicology on 11-26-2024 Vancomycin trough [Mass/Vol] 19.8 ug/mL Laboratory - Hematology and Cell countson 11-26-2024 HbA1c (Bld) [Mass fraction] 5.5 % [facility] Comment on above: Normal less than 5.7 % Prediabetes 5.7% to 6.4% Diabetes 6.5% or higher --HgbA1C levels may not be accurate in patients who have renal disease, received recent blood transfusions, are anemic, or who have dyshemoglobinemia. No Panel Informationon 11-26 Interpretation and review of laboratory results Abnormal [facility] Performed by: Felicita Daly, [address] [place] [address] CLIA ID: [id number] [facility] Interpretation and review of laboratory results Abnormal [facility] Performed by: Felicita Daly [address] [place] [address] CLIA ID: [id number] [facility] Interpretation and review of laboratory results Abnormal [facility] Performed by: Felicita Daly [address] [place] [address] CLIA ID: [id number] [facility] HbA1c values of 5.7- 6.4 percent indicate an increased risk for developing diabetes mellitus. HbA1c values greater than or equal to 6.5 percent are diagnostic of diabetes mellitus. For diagnosis of diabetes in individuals without unequivocal hyperglycemia, results should be confirmed by repeat testing. [facility] PROCALCITONIN TESTon 025 PROCALCITONIN 0.30 ng/mL High <0.07 [facility] Comment on above: Result Comment: FLAVIO R COMMENTS: PCT <0.50 = Low risk of severe sepsis and/or septic shock. PCT >2.00 = High risk of severe sepsis and/or septic shock. Performed By: #### L [id number], [id number] ####Band Machine Operator: JAQUELIN MO ([id number])[facility] ([facility])[address] [place] [address] Procalcitonin [Mass/Vol]on 0 11-26-2024 Interpretation and review of laboratory results Abnormal PCT <0.50 = Low risk of severe sepsis and/or septic shock. PCT >2.00 = High risk of severe sepsis and/or septic shock. [facility] RESPIRATORY PATHOGENS PANEL BY PCRon 11-26-2024 RESPIRATORY PATHOGENS PANEL BY PCR SARS-COV-2 Reference Not Detected Not Detected ADENOVIRUS Reference Not Detected Not Detected CORONAVIRUS HKU1 Reference Not Detected Not Detected CORONAVIRUS NL63 Reference Not Detected Not Detected CORONAVIRUS 229E Reference Not Detected Not Detected CORONAVIRUS OC43 Reference Not Detected Not Detected HUMAN METAPNEUMOVIRUS Reference Not Detected Not Detected HUMAN RHINOVIRUS/ENTEROVIRUS Reference Not Detected Not Detected INFLUENZA A Reference Not Detected Not Detected INFLUENZA B Reference Not Detected Not Detected PARAINFLUENZA 1 Reference Not Detected Not Detected PARAINFLUENZA 2 Reference Not Detected Not Detected PARAINFLUENZA 3 Reference Not Detected Not Detected PARAINFLUENZA 4 Reference Not Detected Not Detected RESPIRATORY SYNCYTIAL VIRUS Reference Not Detected Not Detected BORDETELLA PERTUSSIS Reference Not Detected Not Detected BORDETELLA PARAPERTUSSIS Reference Not Detected Not Detected CHLAMYDIA PNEUMONIAE Reference Not Detected Not Detected MYCOPLASMA PNEUMONIAE Reference Not Detected Not Detected ORDER COMMENTS: Methodology: Multiplex PCR Normal [facility] Comment on above: Performed By: #### L [id number] ####Band Machine Operator: ESAU SKINNER ([id number])[facility] ([facility])[address] [place] [address] Respiratory pathogens DNA an d RNA panel BETO+non-probe (Nph)Ordered By: Betty Munguia on 11-26-2024 Adenovirus Not detected Not Detected B. pertussis DNA BETO+probe Ql (Unsp spec) Not detected Not Detected Bordetella parapertussis Not detected Not Detected Chlamydia pneumoniae Not detected Not Detected Coronavirus 229E Not detected Not Detected [facility] Coronavirus HKU1 Not detected Not Detected [facility] Coronavirus NL63 Not detected Not Detected [facility] Coronavirus OC43 Not detected Not Detected [facility] FLUAV RNA BETO+non-probe Ql (Nph) Not detected Not Detected FLUBV RNA BETO+non-probe Ql (Nph) Not detected Not Detected Human Metapneumovirus Not detected Not Detected Human Rhinovirus/Enteroviru s Not detected Not Detected Interpretation and review of laboratory results Normal Mycoplasma pneumoniae Not detected Not Detected Parainfluenza 1 Not detected Not Detected Parainfluenza 2 Not detected Not Detected Parainfluenza 3 Not detected Not Detected Parainfluenza 4 Not detected Not Detected Respiratory Syncytial Virus Not detected Not Detected SARS-CoV-2 (COVID-19) RNA BETO+non-probe Ql (Nph) Not detected Not Detected Methodology: Multiplex PCR [facility] VANCOMYCIN, AUC TIMED DOSING on 11-26-2024 VANCOMYCIN, AUC 19.8 ug/mL Normal [facility] Comment on above: Result Comment: ORDE R COMMENTS: Please draw random level at least >2 hours after the end of the last vancomycin infusion, or 30-minutes before next infusion. Toxicity is seen at concentrations >80-100 ug/mL Therapeutic (Peak) range: 20-40 Therapeutic (Trough) range: 5-10 Performed By: #### L [id number] #### Band Machine Operator: JAQUELIN MO ([id number]) [facility] ([facility]) [address] [place] [address] Vancomycin trough [Mass/Vol] on 11-26-2024 Toxicity is seen at concentrations >80-100 ug/mL Therapeutic (Peak) range: 20-40 Therapeutic (Trough) range: 5-10 [facility] BLOOD CULTUREon 11-25-2024 Bacteria identified Cx Nom (Bld) BLOOD CULTURE Reference No growth at 5 days ORDER COMMENTS: Blood Collection Site: Right Hand [ S = SUSCEPTIBLE R = RESISTANT I = INTERMEDIATE S-DD = Susceptible-dose dependent NS = Non-susceptible NO = No Interpretation ] Normal [facility] Comment on above: Performed By: #### L [id number] ####Band Machine Operator: ESAU SKINNER ([id number])[address] Bacteria identified Cx Nom (Bld) BLOOD CULTURE Reference No growth at 5 days ORDER COMMENTS: Blood Collection Site: Left Hand [ S = SUSCEPTIBLE R = RESISTANT I = INTERMEDIATE S-DD = Susceptible-dose dependent NS = Non-susceptible NO = No Interpretation ] Normal [facility] Comment on above: Performed By: #### L [id number] ####Band Machine Operator: ESAU SKINNER ([id number])[facility] ([address] CBC W Auto Differential pane l (Bld)on 11-25-2024 Basophils (Bld) [#/Vol] 0 10*3/uL 0.0 - 0.2 10*3/uL Basophils/100 WBC (Bld) 0.1 % 0.0 - 2.0 % [facility] Eosinophils (Bld) [#/Vol] 0.1 10*3/uL 0.0 - 0.5 10*3/uL Eosinophils/100 WBC (Bld) 1.6 % 0.0 - 6.0 % [facility] Erythrocyte distribution width (RBC) [Ratio] 13 % 11.5 - 15.0 % [facility] Hematocrit (Bld) [Volume fraction] 28.8 % Low 40.0 - 52.0 % Hemoglobin (Bld) [Mass/Vol] 9.2 g/dL Low 13.0 - 18.0 g/dL [facility] Immature granulocytes (Bld) [#/Vol] 0.1 10*3/uL High NINF - 0.1 10*3/uL [facility] Immature granulocytes/100 WBC (Bld) 0.7 % 0.0 - 2.0 % [facility] Interpretation and review of laboratory results Abnormal [facility] Lymphocytes (Bld) [#/Vol] 1 10*3/uL 1.0 - 4.3 10*3/uL [facility] Lymphocytes/100 WBC (Bld) 15 % 15.0 - 45.0 % MCH (RBC) [Entitic mass] 29.2 pg 26.0 - 34.0 pg MCHC (RBC) [Mass/Vol] 31.9 % 30.5 - 36.0 % MCV (RBC) [Entitic vol] 91.4 fL 77.0 - 99.0 fL Monocytes (Bld) [#/Vol] 0.7 10*3/uL 0.0 - 0.9 10*3/uL Monocytes/100 WBC (Bld) 10.1 % 5.0 - 13.0 % Neutrophils (Bld) [#/Vol] 5 10*3/uL 1.8 - 7.5 10*3/uL Neutrophils/100 WBC (Bld) 72.5 % 38.0 - 82.0 % Nucleated RBC/100 WBC (Bld) [Ratio] 0 % Platelet mean volume (Bld) [Entitic vol] 9.2 fL 9.0 - 12.7 fL Platelets (Bld) [#/Vol] 220 10*3/uL 140 - 440 10*3/uL RBC (Bld) [#/Vol] 3.15 10*6/uL Low 4.40 - 5.9 0 10*6/uL WBC (Bld) [#/Vol] 6.9 10*3/uL 3.6 - 10.7 10*3/uL [facility] CBC WITH AUTO DIFFERENTIALon 11-25-2024 Basophils (Bld) [#/Vol] 0.0 10*3/uL Normal 0.0-0.2 [facility] Comment on above: Performed By: #### L [id number] ####Band Machine Operator: JAQUELIN MO ([id number])[facility] ([facility])[address] [place] [address] Basophils/100 WBC (Bld) 0.1 % Normal 0.0-2.0 [facility] Comment on above: Performed By: #### L [id number] ####Band Machine Operator: JAQUELIN MO ([id number])[facility] ([facility])[address] [place] [address] Eosinophils (Bld) [#/Vol] 0.1 10*3/uL Normal 0.0-0.5 [facility] Comment on above: Performed By: #### L [id number] ####Band Machine Operator: JAQUELIN MO ([id number])[facility] ([facility])[address] Eosinophils/100 WBC (Bld) 1.6 % Normal 0.0-6.0 [facility] Comment on above: Performed By: #### L [id number] ####Band Machine Operator: JAQUELIN MO ([id number])[facility] ([facility])[address] Erythrocyte distribution width (RBC) [Ratio] 13.0 % Normal 11.5-15.0 [facility] Comment on above: Performed By: #### L [id number] ####Band Machine Operator: JAQUELIN MO ([id number])[facility] ([facility])[address] Hematocrit (Bld) [Volume fraction] 28.8 % Low 40.0-52.0 [facility] Comment on above: Performed By: #### L [id number] ####Band Machine Operator: JAQUELIN MO ([id number])[facility] ([facility])[address] Hemoglobin (Bld) [Mass/Vol] 9.2 g/dL Low 13.0-18.0 [facility] Comment on above: Performed By: #### L [id number] ####Band Machine Operator: JAQUELIN MO ([id number])[facility] ([facility])[address] IMMATURE GRANS % 0.7 % Normal 0.0-2.0 [facility] Comment on above: Performed By: #### L [id number] ####Band Machine Operator: JAQUELIN MO ([id number])[facility] ([facility])[address] IMMATURE GRANS ABSOLUTE 0.1 10*3/uL High <0.1 [facility] Comment on above: Performed By: #### L [id number] ####Band Machine Operator: JAQUELIN MO ([id number])[facility] ([facility])[address] Lymphocytes (Bld) [#/Vol] 1.0 10*3/uL Normal 1.0-4.3 [facility] Comment on above: Performed By: #### L [id number] ####Band Machine Operator: JAQUELIN MO ([id number])[facility] ([facility])[address] Lymphocytes/100 WBC (Bld) 15.0 % Normal 15.0-45.0 [facility] Comment on above: Performed By: #### L [id number] ####Band Machine Operator: JAQUELIN MO ([id number])[facility] ([facility])[address] MCH (RBC) [Entitic mass] 29.2 pg Normal 26.0-34.0 [facility] Comment on above: Performed By: #### L [id number] ####Band Machine Operator: JAQUELIN MO ([id number])[facility] ([facility])[address] MCHC 31.9 % Normal 30.5-36.0 [facility] Comment on above: Performed By: #### L [id number] ####Band Machine Operator: JAQUELIN MO ([id number])[facility] ([facility])[address] MCV (RBC) [Entitic vol] 91.4 fL Normal 77.0-99.0 [facility] Comment on above: Performed By: #### L [id number] ####Band Machine Operator: JAQUELIN MO ([id number])[facility] ([facility])[address] [place] [address] [place] Monocytes (Bld) [#/Vol] 0.7 10*3/uL Normal 0.0-0.9 [facility] Comment on above: Performed By: #### L [id number] ####Band Machine Operator: JAQUELIN MO ([id number])[facility] ([facility])[address] Monocytes/100 WBC (Bld) 10.1 % Normal 5.0-13.0 [facility] Comment on above: Performed By: #### L [id number] ####Band Machine Operator: JAQUELIN MO ([id number])[facility] ([facility])[address] NEUTROPHILS ABSOLUTE 5.0 10*3/uL Normal 1.8-7.5 [facility] Comment on above: Performed By: #### L [id number] ####Band Machine Operator: JAQUELIN MO ([id number])[facility] ([facility])[address] Neutrophils/100 WBC (Bld) 72.5 % Normal 38.0-82.0 [facility] Comment on above: Performed By: #### L [id number] ####Band Machine Operator: JAQUELIN MO ([id number])[facility] ([facility])[address] NRBC 0.0 /100 WBCs Normal 0.0-2.0 [facility] Comment on above: Performed By: #### L [id number] ####Band Machine Operator: JAQUELIN MO ([id number])[facility] ([facility])[address] [place] [address] [place] Platelet mean volume (Bld) [Entitic vol] 9.2 fL Normal 9.0-12.7 [facility] Comment on above: Performed By: #### L [id number] ####Band Machine Operator: JAQUELIN MO ([id number])[facility] ([facility])[address] [place] [address] [place] Platelets (Bld) [#/Vol] 220 10*3/uL Normal 140-440 [facility] Comment on above: Performed By: #### L [id number] ####Band Machine Operator: JAQUELIN MO ([id number])[facility] ([facility])[address] RBC (Bld) [#/Vol] 3.15 10*6/uL Low 4.40-5.90 [facility] Comment on above: Performed By: #### L [id number] ####Band Machine Operator: JAQUELIN MO ([id number])[facility] ([facility])[address] WBC (Bld) [#/Vol] 6.9 10*3/uL Normal 3.6-10.7 [facility] Comment on above: Performed By: #### L [id number] ####Band Machine Operator: JAQUELIN MO ([id number])[facility] ([facility])[address] COMPREHENSIVE METABOLIC PANE Tommie 11-25-2024 Albumin [Mass/Vol] 3.2 g/dL Low 3.4-4.8 [facility] Comment on above: Performed By: #### L AB17, [id number] ####Band Machine Operator: JAQUELIN MO ([id number])[facility] ([facility])[address] ALP [Catalytic activity/Vol] 100 U/L Normal 40-150 [facility] Comment on above: Performed By: #### L AB17, [id number] ####Band Machine Operator: JAQUELIN MO ([id number])[facility] ([facility])[address] ALT [Catalytic activity/Vol] 17 U/L Normal <40 [facility] Comment on above: Performed By: #### L AB17, [id number] ####Band Machine Operator: JAQUELIN MO ([id number])[facility] ([facility])[address] Anion gap [Moles/Vol] 15 mmol/L High 3-13 [facility] Comment on above: Performed By: #### L AB17, [id number] ####Band Machine Operator: JAQUELIN MO ([id number])[facility] ([facility])[address] AST [Catalytic activity/Vol] 19 U/L Normal <34 [facility] Comment on above: Performed By: #### L AB17, [id number] ####Band Machine Operator: JAQUELIN MO ([id number])[facility] [place] ([facility])[address] Bilirubin [Mass/Vol] 0.5 mg/dL Normal <1.2 [facility] Comment on above: Performed By: #### L AB17, [id number] ####Band Machine Operator: JAQUELIN MO ([id number])[facility] ([facility])[address] Calcium [Mass/Vol] 9.1 mg/dL Normal 8.8-10.0 [facility] Comment on above: Performed By: #### L AB17, [id number] ####Band Machine Operator: JAQUELIN MO ([id number])[facility] ([facility])[address] Chloride [Moles/Vol] 99 mmol/L Normal 98-107 [facility] Comment on above: Performed By: #### L AB17, [id number] ####Band Machine Operator: JAQUELIN MO ([id number])[facility] ([facility])[address] [place] [address] [place] CO2 [Moles/Vol] 25 mmol/L Normal 23-31 [facility] Comment on above: Performed By: #### L AB17, [id number] ####Band Machine Operator: JAQUELIN MO ([id number])[facility] ([facility])[address] Creatinine [Mass/Vol] 5.14 mg/dL High 0.72-1.25 [facility] Comment on above: Performed By: #### L AB17, [id number] ####Band Machine Operator: JAQUELIN MO ([id number])[facility] ([facility])[address] GLOMERULAR FILTRATION RATE ML/MIN/1.73 SQ M.PREDICTED 11.8 mL/min/1.73m*2 Low >60.0 [facility] Comment on above: Result Comment: Calc ulation based on the Chronic Kidney Disease Epidemiology Collaboration (CKD-EPI) equation refit without adjustment for race Performed By: #### L AB17, [id number] ####Band Machine Operator: JAQUELIN MO ([id number])[facility] ([facility])[address] [place] [address] Glucose [Mass/Vol] 178 mg/dL High 82-115 [facility] Comment on above: Performed By: #### L AB17, [id number] ####Band Machine Operator: JAQUELIN MO ([id number])[facility] ([facility])[address] [place] [address] Potassium [Moles/Vol] 4.4 mmol/L Normal 3.5-5.1 [facility] Comment on above: Result Comment: [facility] potassium values may be up to 0.5 mmol/L lower than serum values. Performed By: #### L AB17, [id number] ####Band Machine Operator: JAQUELIN MO ([id number])[facility] ([facility])[address] [place] [address] Protein [Mass/Vol] 6.9 g/dL Normal 6.4-8.3 [facility] Comment on above: Performed By: #### L AB17, [id number] ####Band Machine Operator: JAQUELIN MO ([id number])[facility] ([facility])[address] [place] [address] Sodium [Moles/Vol] 139 mmol/L Normal 136-145 [facility] Comment on above: Performed By: #### L AB17, [id number] ####Band Machine Operator: JAQUELIN MO ([id number])[facility] ([facility])[address] Urea nitrogen [Mass/Vol] 49 mg/dL High 9-23 System [facility] Comment on above: Performed By: #### L AB17, [id number] ####Band Machine Operator: JAQUELIN MO ([id number])[facility] ([facility])[address] COVID-19, Flu A/B, and RSV C omboon 11-25-2024 Interpretation and review of laboratory results Normal [facility] Comprehensive metabolic 1998 panelon 11-25-2024 Albumin [Mass/Vol] 3.2 g/dL Low 3.4 - 4.8 g/dL ALP [Catalytic activity/Vol] 100 U/L 40 - 150 U/L ALT [Catalytic activity/Vol] 17 U/L NINF - 40 U/L Anion gap [Moles/Vol] 15 mmol/L High 3 - 13 mmol/L AST [Catalytic activity/Vol] 19 U/L NINF - 34 U/L Bilirubin [Mass/Vol] 0.5 mg/dL [facility] - 1.2 mg/dL Calcium [Mass/Vol] 9.1 mg/dL 8.8 - 10. 0 mg/dL Chloride [Moles/Vol] 99 mmol/L 98 - 10 7 mmol/L CO2 [Moles/Vol] 25 mmol/L 23 - 31 mmol/L Creatinine [Mass/Vol] 5.14 mg/dL High 0.72 - 1.25 mg/dL GFR/1.73 sq M.predicted (S/P/Bld) [Vol rate/Area] 11.8 mL/min Low - [facility] Comment on above: Calculation based on the Chronic Kidney Disease Epidemiology Collaboration (CKD-EPI) equation refit without adjustment for race Glucose [Mass/Vol] 178 mg/dL High 82 - 115 mg/dL Interpretation and review of laboratory results Abnormal Potassium [Moles/Vol] 4.4 mmol/L 3.5 - 5.1 mmol/L Comment on above: Plasma potassium reji ues may be up to 0.5 mmol/L lower than serum values. Protein [Mass/Vol] 6.9 g/dL 6.4 - 8.3 g/dL Sodium [Moles/Vol] 139 mmol/L 136 - 145 mmol/L Urea nitrogen [Mass/Vol] 49 mg/dL High 9 - 23 mg/dL Consulton 11-25-2024 Consult Pharmacy Managed Vancomycin Dosing Service Consult Note Consult Date: 11/25/24 Patient Name: José Manuel Ashton Allergies: Penicillins Age: 63 y.o. Sex: male Estimated body mass index is 35.87 kg/m? as calculated from the following: Height as of this encounter: 1.778 m (5' 10"). Weight as of this encounter: 113 kg (250 lb). Lab Results Component Value Date CREATININE 5.14 (H) 11/25/2024 CREATININE 1.69 (H) 10/01/2023 BUN 49 (H) 11/25/2024 BUN 33 (H) 10/01/2023 WBC 6.9 11/25/2024 WBC 14.8 (H) 10/01/2023 Renal: []HD []CRRT []PD [x] CrCl 22.9 ml/min (if TARYN, no MARKETING INTELLIGENCE MANAGER) Consulted By: Dr. Adames Vancomycin Level: []Trough [x]Random Infectious Diagnosis: Sepsis of unknown etiology (target level= mg/L) Antimicrobials: Patient recently received an antibiotic (last 12 hours) Date/Time Action Medication Dose Rate 11/25/24 1439 New Bag vancomycin (Vancocin) 2500 mg in 0.9% sodium chloride 500 mL IVPB (compounded premix) 2,500 mg 166.7 mL/hr Assessment/Plan: Intermittent vancomycin dosing (Pulse Dosing). Give Vancomycin 500 mg 24 based on patient age, weight, renal status and infectious diagnosis (4.4 mg/kg). Will adjust dose/frequency if needed according to level. Follow renal status closely. Orders placed. Thank you for this consult. Please page/call with questions. Date: 11/25/24 Time: 2:57 PM Thea BakerD (available on [email or web address]) Normal [facility] ECG 12-LEADon 11-25-2024 ECG 12-LEAD IMPRESSION: Sinus rhythm Low voltage, extremity leads EKG from interpretation shows normal sinus rhythm at a rate of 80 with normal axis. There is low voltage in extremity leads. There is an abnormal R wave progression versus old septal infarct. There is no acute ST elevation or ST depression. Intervals are within normal limits otherwise. There were no old EKGs available for comparison. Electronically Signed On 11-25-2024 14:52:25 EDT by Omid Adames Normal [facility] ED Nursing Noteon 11-25-2024 ED Nursing Note Pt refused pain meds , " not my dose at [facility]" per pt Normal [facility] ED Nursing Note Pt received dialysis today Normal [facility] ED Provider Noteon ED Provider Note EMERGENCY DEPARTMENT ENCOUNTER Pt Name: José Manuel Ashton Birthdate 1960 Date of evaluation: 11/25/2024 ED Provider: Omid Adames MD CHIEF COMPLAINT Chief Complaint Patient presents with Altered Mental Status Pt presents to ED via EMS from [facility] for responding slowly and indicates he is cold. HISTORY OF PRESENT ILLNESS (Location/Symptom, Timing/Onset, Context/Setting, Quality, Duration, Modifying Factors, Severity) Note limiting factors. I wore appropriate PPE for the entirety of this encounter. HPI José Manuel Ashton is a 63 y.o. who presents to the emergency department with chief complaint of tremors and chills. Patient came in by ambulance from dialysis center. Apparently he has not felt well all weekend. He has had shakes and chills although is unaware of any fever. He had his full dialysis treatment. The patient apparently has some baseline cognitive limitations, but he is able to answer questions. He denies any headaches or visual complaints. He is unaware of any fever. He denies any cough or URI symptoms. Denies any chest pain or trouble breathing. Denies any abdominal pain, vomiting or diarrhea. He does make some urine. No rash or bruising that is new. Denies any localizing numbness or weakness. No other acute complaints. He is not sure if he has felt like this before. He is unaware of any ill contacts. Nursing Notes were reviewed. Limitations to history: None Outside historians: None REVIEW OF SYSTEMS Review of Systems Constitutional: Positive for chills. Negative for fever. HENT: Negative. Negative for sore throat. Eyes: Negative for visual disturbance. Respiratory: Negative for cough and shortness of breath. Cardiovascular: Negative for chest pain. Gastrointestinal: Negative for abdominal pain, diarrhea and vomiting. Genitourinary: Negative for dysuria and frequency. Musculoskeletal: Negative for arthralgias and back pain. Skin: Negative for color change and rash. Neurological: Positive for tremors. Negative for syncope, weakness, numbness and headaches. All other systems reviewed and are negative. Pertinent positives and negatives as per HPI. PAST MEDICAL HISTORY Medical History[1] SURGICAL HISTORY Surgical History[2] CURRENT MEDICATIONS Previous Medications No medications on file ALLERGIES Penicillins FAMILY HISTORY Family History[3] SOCIAL HISTORY Social History[4] SCREENINGS PHYSICAL EXAM ED Triage Vitals Temp Heart Rate Resp BP 11/25/24 1211 11/25/24 1211 11/25/24 1211 11/25/24 1214 36.4 ?C (97.5 ?F) 80 18 131/54 SpO2 Temp Source Heart Rate Source Patient Position 11/25/24 1211 11/25/24 1211 11/25/24 1211 11/25/24 1211 96 % Oral Monitor Lying BP Location FiO2 (%) 11/25/24 1211 -- Left arm Physical Exam Vitals and nursing note reviewed. Constitutional: Appearance: Normal appearance. He is well-developed. He is not toxic-appearing. Comments: Patient appears slightly uncomfortable although nontoxic and in no severe distress. HENT: Head: Normocephalic and atraumatic. Right Ear: External ear normal. Left Ear: External ear normal. Nose: Nose normal. Mouth/Throat: Mouth: Mucous membranes are moist. Pharynx: Oropharynx is clear. Eyes: Extraocular Movements: Extraocular movements intact. Conjunctiva/sclera: Conjunctivae normal. Pupils: Pupils are equal, round, and reactive to light. Cardiovascular: Rate and Rhythm: Normal rate and regular rhythm. Heart sounds: Normal heart sounds. No murmur heard. Pulmonary: Effort: Pulmonary effort is normal. No respiratory distress. Breath sounds: Normal breath sounds. No wheezing, rhonchi or rales. Abdominal: Palpations: Abdomen is soft. Tenderness: There is no abdominal tenderness. There is no guarding or rebound. Musculoskeletal: General: No swelling or tenderness. Normal range of motion. Cervical back: Normal range of motion and neck supple. Skin: General: Skin is warm and dry. Neurological: General: No focal deficit present. Mental Status: He is alert and oriented to person, place, and time. GCS: GCS eye subscore is 4. GCS verbal subscore is 5. GCS motor subscore is 6. Cranial Nerves: Cranial nerves 2-12 are intact. Sensory: Sensation is intact. Motor: Motor function is intact. Coordination: Coordination is intact. Psychiatric: Mood and Affect: Mood normal. DIAGNOSTIC RESULTS Procedures/EKG: EKG per my interpretation shows a normal sinus rhythm at a rate of 80 with a normal axis. There is low voltage in extremity leads. There is a slow R wave progression versus old septal MD. There is no acute ST elevation or ST depression however. Intervals are within normal limits otherwise. There is no old EKG available for comparison. EKG was reviewed by myself. Physician EKG interpretation can be found in [facility] RADIOLOGY (Per Emergency Physician): Chest x-ray interpreted by me shows no obvious evid (more content not included)... Normal [facility] LACTIC ACID WITH REFLEXon Lactate [Moles/Vol] 0.7 mmol/L Normal 0.5-2.2 [facility] Comment on above: Performed By: #### L [id number] ####Band Machine Operator: JAQUELIN MO ([id number])[facility] ([facility])[address] [place] [address] Lactate [Moles/Vol] 3.5 mmol/L High 0.5-2.2 [facility] Comment on above: Performed By: #### L [id number] ####Band Machine Operator: JAQUELIN MO ([id number])[facility] ([facility])[address] [place] [address] Laboratory - Chemistry and C hemistry - challengeon 11-25-2024 Glucose [Mass/Vol] 187 mg/dL High 70 - 100 mg/dL Glucose [Mass/Vol] 167 mg/dL High 70 - 100 mg/dL Glucose [Mass/Vol] 119 mg/dL High 70 - 100 mg/dL Lactate [Moles/Vol] 0.7 mmol/L 0.5 - 2. 2 mmol/L Lactate [Moles/Vol] 3.5 mmol/L High 0.5 - 2. 2 mmol/L Magnesium [Mass/Vol] 2 mg/dL 1.6 - 2 .6 mg/dL Laboratory - Microbiology an d Antimicrobial susceptibilityon 11-25-2024 FLUAV RNA BETO+probe Ql (Resp) Not detected Not Detected FLUBV RNA BETO+probe Ql (Resp) Not detected Not Detected RSV RNA BETO+probe Ql (Resp) Not detected Not Detected SARS-CoV-2 (COVID-19) RNA BETO+probe Ql (Resp) Not detected Not Detected SARS-CoV-2 (COVID-19) RNA BETO+probe Ql (Unsp spec) Methodology: real-time, RT-PCR The SARS-CoV-2, Flu A/B, and RSV Combo assay is intended for in vitro diagnostic use under the FDA Emergency Use Authorization (EUA). This test has not been FDA cleared or approved. In compliance with this authorization, please visit www.fda.gov/media/588423/d ownload or www.fda.gov/media/523339/d ownload to access the applicable information sheets. MAGNESIUMon 11-25-2024 Magnesium [Mass/Vol] 2.0 mg/dL Normal 1.6-2.6 [facility] Comment on above: Result Comment: FLAVIO Trejo COMMENTS: Higher values can be expected in females during menses. Performed By: #### L [id number], [id number] ####Band Machine Operator: JAQUELIN MO ([id number])[facility]AL[facility] ([facility])[address] [place] [address] Magnesium [Mass/Vol]on 11-25 Interpretation and review of laboratory results Normal Higher values can be expected in females during menses. No Panel Informationon 11-25 Interpretation and review of laboratory results Abnormal Performed by: Felicita Daly, [address] [address] CLIA ID: [id number] [facility] Interpretation and review of laboratory results Abnormal Performed by: Felicita Daly, [address] [facility], [facility] [address] CLIA ID: [id number] [facility] Interpretation and review of laboratory results Abnormal Performed by: Felicita Daly, [address] [facility], [facility] [address] CLIA ID: [id number] [facility] Interpretation and review of laboratory results Normal [facility] P [place] 23 degrees [place] Interval 167 ms QRS [place] 49 degrees QRSD Interval 110 ms QT Interval 405 ms QTC Interval 468 ms T Wave [place] 62 degrees Sinus rhythm Low voltage, extremity leads EKG from interpretation shows normal sinus rhythm at a rate of 80 with normal axis. There is low voltage in extremity leads. There is an abnormal R wave progression versus old septal infarct. There is no acute ST elevation or ST depression. Intervals are within normal limits otherwise. There were no old EKGs available for comparison. Electronically Signed On 11-25-2024 14:52:25 EDT by Omid Mckeon MD - 11/25/2024 IMPRESSION: Sinus rhythm Low voltage, extremity leads EKG from interpretation shows normal sinus rhythm at a rate of 80 with normal axis. There is low voltage in extremity leads. There is an abnormal R wave progression versus old septal infarct. There is no acute ST elevation or ST depression. Intervals are within normal limits otherwise. There were no old EKGs available for comparison. Electronically Signed On 11-25-2024 14:52:25 EDT by Omid Adames [facility] Interpretation and review of laboratory results Abnormal [facility] SARS-COV-2, FLU A/B, AND RSV COMBOon 11-25-2024 SARS-CoV-2 (COVID-19) RNA BETO+probe Ql (Unsp spec) SARS-COV-2 Reference Not Detected Not Detected RESPIRATORY SYNCYTIAL VIRUS Reference Not Detected Not Detected INFLUENZA A (CEPHEID) Reference Not Detected Not Detected INFLUENZA B (CEPHEID) Reference Not Detected Not Detected ORDER COMMENTS: Methodology: real-time, RT-PCR The SARS-CoV-2, Flu A/B, and RSV Combo assay is intended for in vitro diagnostic use under the FDA Emergency Use Authorization (EUA). This test has not been FDA cleared or approved. In compliance with this authorization, please visit www.fda.gov/media/082802/d ownload or www.fda.gov/media/352982/d ownload to access the applicable information sheets. Normal [facility] Comment on above: Performed By: #### L [id number] ####Band Machine Operator: JAQUELIN MO ([id number])[facility] ([facility])[address] [place] [address] Vital signson 11-25-2024 Heart rate 80 /min bpm [facility] XR Chest Single viewon 11-25 No focal consolidati on or pulmonary edema. Report Dictated on Electronically Signed By: Kj Duran MD Electronically Signed Date/Time: 11/25/2024 12:40 PM EDT [facility] Patient Name: JSOÉ MANUEL YOON : 1960 Exam Date/Time: 11/25/2024 12:25 Procedure: XR CHEST 1 VIEW Ordering Provider: ADAMES TARAS Reason For Exam: Muscle weakness (generalized) PORTABLE CHEST CLINICAL INDICATION: Muscle weakness (generalized) TECHNIQUE: Portable AP COMPARISON: None FINDINGS: Tunneled right IJ dialysis catheter tip terminates over the proximal right atrium. Calcified granuloma overlying the left upper lung zone. No focal consolidation or pulmonary edema. No pleural effusions or pneumothorax. The cardiac and mediastinal silhouettes are normal. The osseous structures are unremarkable. [facility] Kj Duran MD - 11/25/2024 Patient Name: JOSÉ MANUEL ASHTON : 1960 Exam Date/Time: 11/25/2024 12:25 Procedure: XR CHEST 1 VIEW Ordering Provider: ADAMES TARAS Reason For Exam: Muscle weakness (generalized) PORTABLE CHEST CLINICAL INDICATION: Muscle weakness (generalized) TECHNIQUE: Portable AP COMPARISON: None FINDINGS: Tunneled right IJ dialysis catheter tip terminates over the proximal right atrium. Calcified granuloma overlying the left upper lung zone. No focal consolidation or pulmonary edema. No pleural effusions or pneumothorax. The cardiac and mediastinal silhouettes are normal. The osseous structures are unremarkable. IMPRESSION: No focal consolidation or pulmonary edema. Report Dictated on Electronically Signed By: Kj Duran MD Electronically Signed Date/Time: 11/25/2024 12:40 PM [facility]T [facility] [employer] XR Chest Single viewOrdered By: Kj Duran on 11-25-2024 [employer] Work Phone: Renal Profileon 10-14-2024 Albumin [Mass/Vol] 4.0 g/dL Normal 3.4-4.8 [facility] Comment on above: Order Comment: 409.1 Performed By: #### L 500.3600 #### [facility] [address] [place], [address] BUN/CRE 11.5 RATIO Normal 10-20 [facility] Comment on above: Order Comment: 409.1 Performed By: #### L 500.3600 #### [facility] [address] [place], [address] Calcium [Mass/Vol] 9.5 mg/dL Normal 7.6-11.0 [facility] Comment on above: Order Comment: 409.1 Performed By: #### L 500.3600 #### [facility] [address] [place], [address] Chloride [Moles/Vol] 101 mmol/L Normal 98-108 [facility] Comment on above: Order Comment: 409.1 Performed By: #### L 500.3600 #### [facility] [address] [place], [address] CO2 [Moles/Vol] 23.8 mmol/L Normal 21.0-32.0 [facility] Comment on above: Order Comment: 409.1 Performed By: #### L 500.3600 #### [facility] [address] [place], [address] Creatinine [Mass/Vol] 6.18 mg/dL High 0.70-1.20 [facility] Comment on above: Order Comment: 409.1 Performed By: #### L 500.3600 #### [facility] [address] [place], [address] GAP 17 High 5-15 [facility] Comment on above: Order Comment: 409.1 Performed By: #### L 500.3600 #### [facility] [address] [place], [address] GFR/1.73 sq M.predicted among non-blacks MDRD (S/P/Bld) [Vol rate/Area] 9 mL/min/{1.73_m2} Low >60 [facility] Comment on above: Order Comment: 409.1 Result Comment: mL/m in/1.73m2 CKD-EPI Creatinine Equation (2020) Performed By: #### L 500.3600 #### [facility] [address] [place], [address] Glucose [Mass/Vol] 140 mg/dL High 70-99 [facility] Comment on above: Order Comment: 409.1 Performed By: #### L 500.3600 #### [facility] [address] [place], [address] Phosphate [Mass/Vol] 4.9 mg/dL High 2.7-4.5 [facility] Comment on above: Order Comment: 409.1 Performed By: #### L 500.3600 #### [facility] [address] [place], [address] Potassium [Moles/Vol] 5.2 mmol/L High 3.3-5.1 [facility] Comment on above: Order Comment: 409.1 Performed By: #### L 500.3600 #### [facility] [address] [place], [address] Sodium [Moles/Vol] 142 mmol/L Normal 133-145 [facility] Comment on above: Order Comment: 409.1 Performed By: #### L 500.3600 #### [facility] [address] [place], [address] Urea nitrogen [Mass/Vol] 71 mg/dL High - [facility] Comment on above: Order Comment: 409.1 Performed By: #### L 500.3600 #### [facility] [address] [place], [address] Hemoglobin A1con 10-07-2024 HbA1c (Bld) [Mass fraction] 5.2 % Normal <=5.6 [facility] Comment on above: Order Comment: 409.1 Result Comment: Norm al < 5.7 % Prediabetic 5.7 - 6.4 % Diabetic >or= 6.5 % Please note range changes. Performed By: #### L 501.9985 #### [facility] [address] [place], [address] Anion gap in Serum or Plasma Ordered By: Brittaney Garcia on 08-28-2024 Anion gap [Moles/Vol] 16 mmol/L High - [facility] BUN/creatinine ratioOrdered By: Brittaney Garcia on 08-28-2024 Urea nitrogen/Creatinine [Mass ratio] 10.1 mg/mg 10- [facility] Basic Metabolic Profile (BMP )on 08-28-2024 BUN/CRE 10.1 RATIO Normal - [facility] Comment on above: Order Comment: 413-1 Performed By: #### L 500.2500, L100.0500 #### [facility] [address] [place], [address] Calcium [Mass/Vol] 9.3 mg/dL Normal 7.6-11.0 [facility] Comment on above: Order Comment: 413-1 Performed By: #### L 500.2500, L100.0500 #### [facility] [address] [place], [address] Chloride [Moles/Vol] 100 mmol/L Normal 98-108 [facility] Comment on above: Order Comment: 413-1 Performed By: #### L 500.2500, L100.0500 #### [facility] [address] [place], [address] CO2 [Moles/Vol] 24.3 mmol/L Normal 21.0-32.0 [facility] Comment on above: Order Comment: 413-1 Performed By: #### L 500.2500, L100.0500 #### [facility] [address] [place], [address] Creatinine [Mass/Vol] 5.39 mg/dL High 0.70-1.20 [facility] Comment on above: Order Comment: 413-1 Performed By: #### L 500.2500, L100.0500 #### [facility] [address] [place], [address] GAP 16 High 5-15 [facility] Comment on above: Order Comment: 413-1 Performed By: #### L 500.2500, L100.0500 #### [facility] [address] [place], [address] GFR/1.73 sq M.predicted among non-blacks MDRD (S/P/Bld) [Vol rate/Area] 11 mL/min/{1.73_m2} Low >60 [facility] Comment on above: Order Comment: 413-1 Result Comment: mL/m in/1.73m2 CKD-EPI Creatinine Equation (2020) Performed By: #### L 500.2500, L100.0500 #### [facility] [address] [place], [address] Glucose [Mass/Vol] 155 mg/dL High 70-99 [facility] Comment on above: Order Comment: 413-1 Performed By: #### L 500.2500, L100.0500 #### [facility] [address] [place], [address] Potassium [Moles/Vol] 4.6 mmol/L Normal 3.3-5.1 [facility] Comment on above: Order Comment: 413-1 Performed By: #### L 500.2500, L100.0500 #### [facility] [address] [place], [address] Sodium [Moles/Vol] 140 mmol/L Normal 133-145 [facility] Comment on above: Order Comment: 413-1 Performed By: #### L 500.2500, L100.0500 #### [facility] [address] [place], [address] Urea nitrogen [Mass/Vol] 54 mg/dL High 4-19 [facility] Comment on above: Order Comment: 413-1 Performed By: #### L 500.2500, L100.0500 #### [facility] [address] [place], [address] CBC-Complete Blood Cnt No Di ffon 08-28-2024 Erythrocyte distribution width (RBC) [Ratio] 14.4 % Normal 11.6-14.6 [facility] Comment on above: Order Comment: 413-1 Performed By: #### L 500.2500, L100.0500 #### [facility] [address] [place], [address] Hematocrit (Bld) [Volume fraction] 28.0 % Low 40-54 [facility] Comment on above: Order Comment: 413-1 Performed By: #### L 500.2500, L100.0500 #### [facility] [address] [place], [address] Hemoglobin (Bld) [Mass/Vol] 8.9 g/dL Low 13.0-16.5 [facility] Comment on above: Order Comment: 413-1 Performed By: #### L 500.2500, L100.0500 #### [facility] [address] [place], [address] MCH (RBC) [Entitic mass] 29.5 pg Normal 27.0-32.0 [facility] Comment on above: Order Comment: 413-1 Performed By: #### L 500.2500, L100.0500 #### [facility] [address] [place], [address] MCHC (RBC) [Mass/Vol] 31.8 g/dL Low 32-36 [facility] Comment on above: Order Comment: 413-1 Performed By: #### L 500.2500, L100.0500 #### [facility] [address] [place], [address] MCV (RBC) [Entitic vol] 92.7 fL Normal 80-94 [facility] Comment on above: Order Comment: 413-1 Performed By: #### L 500.2500, L100.0500 #### [facility] [address] [place], [address] Platelet mean volume (Bld) [Entitic vol] 9.4 fL Normal 6.2-12.0 [facility] Comment on above: Order Comment: 413-1 Performed By: #### L 500.2500, L100.0500 #### [facility] [address] [place], [address] Platelets (Bld) [#/Vol] 263 10*3/uL Normal 150-450 [facility] Comment on above: Order Comment: 413-1 Performed By: #### L 500.2500, L100.0500 #### [facility] [address] [place], [address] RBC (Bld) [#/Vol] 3.02 10*6/uL Low 4.6-6.2 [facility] Comment on above: Order Comment: 413-1 Performed By: #### L 500.2500, L100.0500 #### [facility] [address] [place], [address] RDW SD 49.1 fl High 35.1-43.9 [facility] Comment on above: Order Comment: 413-1 Performed By: #### L 500.2500, L100.0500 #### [facility] [address] [place], [address] WBC (Bld) [#/Vol] 6.7 10*3/uL Normal 4.4-11.0 [facility] Comment on above: Order Comment: 413-1 Performed By: #### L 500.2500, L100.0500 #### [facility] [address] [place], [address] Carbon dioxide, total [Moles /volume] in Central venous bloodOrdered By: Brittaney Garcia on 08-28-2024 CO2 [Moles/Vol] 24.3 mmol/L 21.0-32.0 [facility] Chloride assayOrdered By: Lambert Garcia on 08-28-2024 Chloride [Moles/Vol] 100 mmol/L 98-108 [facility] Erythrocyte distribution wid th ratioOrdered By: Brittaney Garcia on 08-28-2024 Erythrocyte distribution width (RBC) [Ratio] 14.4 % 11.6-14.6 [facility] Erythrocyte distribution wid th standard deviationOrdered By: Brittaney Garcia on 08-28-2024 Erythrocyte distribution width (RBC) [Ratio] 49.1 fl High 35.1-43.9 [facility] Glomerular filtration rate ( GFR) estimation/1.73 sq m using serum, plasma, or whole bOrdered By: Brittaney Garcia on 08-28-2024 GFR/1.73 sq M.predicted among non-blacks MDRD (S/P/Bld) [Vol rate/Area] 11 mL/min/{1.73_m2} Low >60 [facility] Comment on above: mL/min/1.73m2 CKD-EP I Creatinine Equation (2020) Hematocrit Auto (Bld) [Volum e fraction]Ordered By: Brittaney Garcia on 08-28-2024 Hematocrit (Bld) [Volume fraction] 28.0 % Low 40-54 [facility] Hemoglobin measurementOrdere d By: Brittaney Garcia on 08-28-2024 Hemoglobin (Bld) [Mass/Vol] 8.9 g/dL Low 13.0-16.5 [facility] MCV (mean corpuscular volume ) determinationOrdered By: Brittaney Garcia on 08-28-2024 MCV (RBC) [Entitic vol] 92.7 fL 80-94 [facility] Mean corpuscular hemoglobin (MCH) determinationOrdered By: Brittaney Garcia on 08-28-2024 MCH (RBC) [Entitic mass] 29.5 pg 27.0-32.0 [facility] Mean corpuscular hemoglobin concentration (MCHC) determinationOrdered By: Brittaney Garcia on 08-28-2024 MCHC (RBC) [Mass/Vol] 31.8 g/dL Low 32-36 [facility] Mean platelet volume determi nationOrdered By: Brittaney Garcia on 08-28-2024 Platelet mean volume (Bld) [Entitic vol] 9.4 fL 6.2-12.0 [facility] Platelet countOrdered By: Lambert Garcia on 08-28-2024 Platelets (Bld) [#/Vol] 263 10*3/uL 150-450 [facility] Potassium measurement (mass/ volume)Ordered By: Brittaney Garcia on 08-28-2024 Potassium (Unsp spec) [Mass/Vol] 4.6 mmol/L 3.3-5.1 [facility] RBC Auto (Bld) [#/Vol]Ordere d By: Brittaney Garcia on 08-28-2024 RBC (Bld) [#/Vol] 3.02 10*6/uL Low 4.6-6.2 [facility] Serum creatinine measurement (mass/volume)Ordered By: Brittaney Garcia on 08-28-2024 Creatinine [Mass/Vol] 5.39 mg/dL High 0.70-1.20 [facility] Serum glucose measurement (m ass/volume)Ordered By: Brittaney Garcia on 08-28-2024 Glucose [Mass/Vol] 155 mg/dL High 70-99 [facility] Serum or plasma calcium patt urement (mass/volume)Ordered By: Brittaney Garcia on 08-28-2024 Calcium [Mass/Vol] 9.3 mg/dL 7.6-11.0 [facility] Serum or plasma urea nitroge n measurement (mass/volume)Ordered By: Brittaney Garcia on 08-28-2024 Urea nitrogen [Mass/Vol] 54 mg/dL High 4-19 [facility] Sodium levelOrdered By: Jd Garcia on 08-28-2024 Sodium [Moles/Vol] 140 mmol/L 133-145 [facility] White blood cell (WBC) count Ordered By: Brittaney Garcia on 08-28-2024 WBC (Bld) [#/Vol] 6.7 10*3/uL 4.4-11.0 [facility] CASE MANAGEMon 07-24-2024 CASE MANAGEM Normal [facility] CASE MANAGEM Normal [facility] CASE MANAGEM Normal [facility] CBC panel Auto (Bld)on 07-24 Erythrocyte distribution width (RBC) [Ratio] 13.2 % Normal 11.5-15.0 [facility] Comment on above: Order Comment: Luz vaughan Type: BLOOD SPECIMENOrdering Facility: [facility] Address: [address] [place] [address] Performed By: #### 5 8410-2 ####[facility] LABORATORYCLIA [id number] [place] [address] [place] Hematocrit (Bld) [Volume fraction] 26.9 % Low 39.0-51.0 [facility] Comment on above: Order Comment: Speci men Type: BLOOD SPECIMENOrdering Facility: [facility] Address: [address] [place] [address] Performed By: #### 5 8410-2 ####[facility] LABORATORYCLIA [id number] [address] [place] Hemoglobin (Bld) [Mass/Vol] 8.8 g/dL Low 13.0-17.0 [facility] Comment on above: Order Comment: Speci men Type: BLOOD SPECIMENOrdering Facility: [facility] Address: [address] [place] [address] Performed By: #### 5 8410-2 ####ADKINS LABORATORYCLIA [id number] [address] [place] MCH (RBC) [Entitic mass] 28.5 pg Normal 26.0-34.0 [facility] Comment on above: Order Comment: Speci men Type: BLOOD SPECIMENOrdering Facility: [facility] Address: [address] [place] [address] Performed By: #### 5 8410-2 ####ADKINS LABORATORYCLIA [id number] [address] [place] [facility] MCHC (RBC) [Mass/Vol] 32.7 g/dL Normal 30.5-36.0 [facility] Comment on above: Order Comment: Speci men Type: BLOOD SPECIMENOrdering Facility: [facility] Address: [address] [place] [address] Performed By: #### 5 8410-2 ####ADKINS LABORATORYCLIA [id number] [address] MCV (RBC) [Entitic vol] 87.1 fL Normal 80.0-100.0 [facility] Comment on above: Order Comment: Speci men Type: BLOOD SPECIMENOrdering Facility: [facility] Address: [address] [place] [address] Performed By: #### 5 8410-2 ####ADKINS LABORATORYCLIA [id number] [address] Nucleated RBC (Bld) [#/Vol] 10*3/uL Normal <0.01 [facility] Comment on above: Order Comment: Speci men Type: BLOOD SPECIMENOrdering Facility: [facility] Address: [address] [place] [address] Performed By: #### 5 8410-2 ####ADKINS LABORATORYCLIA [id number] [address] [place] Platelet mean volume (Bld) [Entitic vol] 9.2 fL Normal 9.0-12.7 [facility] Comment on above: Order Comment: Speci men Type: BLOOD SPECIMENOrdering Facility: [facility] Address: [address] [place] [address] Performed By: #### 5 8410-2 ####ADKINS LABORATORYCLIA [id number] [place] [address] [place] Platelets (Bld) [#/Vol] 168 10*3/uL Normal 150-400 [facility] Comment on above: Order Comment: Speci men Type: BLOOD SPECIMENOrdering Facility: [facility] Address: [address] [place] [address] Performed By: #### 5 8410-2 ####ADKINS LABORATORYCLIA [id number] [place] [address] [place] RBC (Bld) [#/Vol] 3.09 10*6/uL Low 4.20-6.00 [facility] Comment on above: Order Comment: Speci men Type: BLOOD SPECIMENOrdering Facility: [facility] Address: [address] [place] [address] Performed By: #### 5 8410-2 ####ADKINS LABORATORYCLIA [id number] [address] [place] WBC (Bld) [#/Vol] 6.64 10*3/uL Normal 3.70-11.00 [facility] Comment on above: Order Comment: Speci men Type: BLOOD SPECIMENOrdering Facility: [facility] Address: [address] [place] [address] Performed By: #### 5 8410-2 ####ADKINS LABORATORYCLIA [id number] [address] [place] CNDSon 07-24-2024 [facility] JOSÉ MANUEL ASHTON ([id number]) 1960 [facility] Date Time Provider Department 07/24/24 CLAUDIA [...] are managed by this patient by: PATIENT Nusrat Lewis, OA 11/08/[address] Scott: "Patient [...] 01/17/2022 H/O (more content not included)... Normal [facility] CONSULT PROGon 07-24-2024 CONSULT PROG Normal [facility] Comprehensive metabolic 2000 panelon 07-24-2024 Albumin [Mass/Vol] 3.2 g/dL Low 3.9-4.9 [facility] Comment on above: Order Comment: Speci men Type: BLOOD SPECIMENOrdering Facility: [facility] Address: [address] [place] [address] Performed By: #### 5 0190-8, 6-4, 05716-5 ####ADKINS LABORATORYCLIA [id number] [place] [address] [place] ALP [Catalytic activity/Vol] 107 U/L Normal 38-113 [facility] Comment on above: Order Comment: Speci men Type: BLOOD SPECIMENOrdering Facility: [facility] Address: [address] [place] [address] Performed By: #### 5 0190-8, 2275-4, 44206-1 ####ADK[facility] LABORATORYCLIA [id number] [address] [place] ALT [Catalytic activity/Vol] 17 U/L Normal 10-54 [facility] Comment on above: Order Comment: Speci men Type: BLOOD SPECIMENOrdering Facility: [facility] Address: [address] [place] [address] Performed By: #### 5 0190-8, 2275-4, 60389-4 ####ADK[facility] LABORATORYCLIA [id number] [address] [facility] Anion gap [Moles/Vol] 13 mmol/L Normal 8-15 [facility] Comment on above: Order Comment: Speci men Type: BLOOD SPECIMENOrdering Facility: [facility] Address: [address] [place] [address] Performed By: #### 5 0190-8, 2275-4, 17098-7 ####ADK[facility] LABORATORYCLIA [id number] [place] [address] [place] AST [Catalytic activity/Vol] 16 U/L Normal 14-40 [facility] Comment on above: Order Comment: Speci men Type: BLOOD SPECIMENOrdering Facility: [facility] Address: [address] [place] [address] Performed By: #### 5 0190-8, 2275-4, 47990-9 ####[facility] LABORATORYCLIA [id number] [place] [address] [place] Bilirubin [Mass/Vol] 0.2 mg/dL Normal 0.2-1.3 [facility] Comment on above: Order Comment: Speci men Type: BLOOD SPECIMENOrdering Facility: [facility] Address: [address] [place] [address] [place] [address] Performed By: #### 5 0190-8, 2275-07, 59160-6 ####ADK[facility] LABORATORYCLIA [id number] [place] [address] [place] Calcium [Mass/Vol] 8.7 mg/dL Normal 8.5-10.2 [facility] Comment on above: Order Comment: Speci men Type: BLOOD SPECIMENOrdering Facility: [facility] Address: [address] [place] [address] [place] [address] Performed By: #### 5 0190-8, 2275-07, ####ADK[facility] LABORATORYCLIA [id number] [place] [address] [place] Chloride [Moles/Vol] 99 mmol/L Normal 98-107 [facility] Comment on above: Order Comment: Speci men Type: BLOOD SPECIMENOrdering Facility: [facility] Address: [address] [facility] [place] [address] Performed By: #### 5 0190-8, 2275-07, ####ADKINS LABORATORYCLIA [id number] [place] [address] [place] CO2 [Moles/Vol] 26 mmol/L Normal 22-30 [facility] Comment on above: Order Comment: Speci men Type: BLOOD SPECIMENOrdering Facility: [facility] Address: [address] [place] [address] [place] [address] Performed By: #### 5 0190-8, 2276-4, 48304-8 ####[facility] LABORATORYCLIA [id number] [place] [address] [place] Creatinine [Mass/Vol] 4.85 mg/dL High 0.73-1.22 [facility] Comment on above: Order Comment: Luz vaughan Type: BLOOD SPECIMENOrdering Facility: [facility] Address: [address] [place] [address] Performed By: #### 5 0190-8, 6-4, 51453-4 ####[facility] LABORATORYCLIA [id number] [place] [address] [place] Creatinine and Glomerular filtration rate.predicted panel (S/P/Bld) 13 mL/min/1.73m??? Low >=60 [facility] Comment on above: Order Comment: Luz vaughan Type: BLOOD SPECIMENOrdering Facility: [facility] Address: [address] [place] [address] Result Comment: Breanne mated Glomerular Filtration Rate [...] actual GFR. Performed By: #### 5 0190-8, 2276-4, 96333-2 ####[facility]WT[facility] LABORATORYCLIA [id number] [place] [id number] [place] Glucose [Mass/Vol] 153 mg/dL High 74-99 [facility] Comment on above: Order Comment: Luz clement Type: BLOOD SPECIMENOrdering Facility: [facility] Address: [address] [place] [address] Result Comment: The [place] [employer] (ADA) provides guidance for cutoff [...] Standards of Medical Care in Diabetes 2016, [place] [employer]. Diabetes Care. 2016.39(Suppl 1). Performed By: #### 5 0190-8, 2275-4, ####ADKINS LABORATORYCLIA [id number] [place] [address] [place] Potassium [Moles/Vol] 4.7 mmol/L Normal 3.7-5.1 [facility] Comment on above: Order Comment: Luz vaughan Type: BLOOD SPECIMENOrdering Facility: [facility] Address: [address] [place] [address] Performed By: #### 5 0190-8, 4, ####ADKINS LABORATORYCLIA [id number] [place] [address] [place] Protein [Mass/Vol] 6.2 g/dL Low 6.3-8.0 [facility] Comment on above: Order Comment: Luz vaughan Type: BLOOD SPECIMENOrdering Facility: [facility] Address: [address] [place] [address] Performed By: #### 5 0190-8, 2275-07, 85972-9 ####ADK[facility] LABORATORYCLIA [id number] [place] [address] [place] Sodium [Moles/Vol] 138 mmol/L Normal 136-144 [facility] Comment on above: Order Comment: Luz vaughan Type: BLOOD SPECIMENOrdering Facility: [facility] Address: [address] [place] [address] Performed By: #### 5 0190-8, 2275-07, ####ADK[facility] LABORATORYCLIA [id number] [place] [id number] [place] Urea nitrogen [Mass/Vol] 48 mg/dL High 9-24 [facility] Comment on above: Order Comment: Luz vaughan Type: BLOOD SPECIMENOrdering Facility: [facility] Address: [address] [place] [address] [id number] Performed By: #### 5 0190-8, 2275-4, 26765-9 ####ADK[facility] LABORATORYCLIA [id number] [place] [address] [place] Ferritin SerPl-mCncon 2024 Ferritin [Mass/Vol] 377.6 ng/mL Normal 30.3-565.7 [facility] Comment on above: Order Comment: Speci men Type: BLOOD SPECIMENOrdering Facility: [facility] Address: [address] [place] [address] Performed By: #### 5 0190-8, 2275-4, 42299-3 ####ADK[facility] LABORATORYCLIA [id number] [place] [address] [place] Iron and Iron binding capaci ty panelon 07-24-2024 Iron [Mass/Vol] 31 ug/dL Low 41-186 [facility] Comment on above: Order Comment: Speci men Type: BLOOD SPECIMENOrdering Facility: [facility] Address: [address] [place] [address] Performed By: #### 5 0190-8, 2275-07, 72045-6 ####ADK[facility] LABORATORYCLIA [id number] [place] [address] [place] Iron binding capacity [Mass/Vol] 140 ug/dL Low 232-386 [facility] Comment on above: Order Comment: Speci men Type: BLOOD SPECIMENOrdering Facility: [facility] Address: [address] [place] [address] Performed By: #### 5 0190-8, 2275-07, 35371-1 ####ADKINS LABORATORYCLIA [id number] [place] [id number] [place] Iron/TIBC [Molar ratio] 22.1 % Normal 15.0-57.0 [facility] Comment on above: Order Comment: Speci men Type: BLOOD SPECIMENOrdering Facility: [facility] Address: [address] [place] [address] Performed By: #### 5 0190-8, 2275-4, 52720-0 ####ADK[facility] LABORATORYCLIA [id number] [place] [address] [place] NURSING PROGon 07-24-2024 NURSING PROG Normal [facility] NUTRITIONon 07-24-2024 NUTRITION Normal [facility] CASE MANAGEMon 07-23-2024 CASE MANAGEM Normal [facility] CASE MANAGEM Normal [facility] CBC panel Auto (Bld)on 07-23 Erythrocyte distribution width (RBC) [Ratio] 13.1 % Normal 11.5-15.0 [facility] Comment on above: Order Comment: Speci men Type: BLOOD SPECIMENOrdering Facility: [facility] Address: [address] [place] [address] Performed By: #### 5 8410-2 ####ADKINS LABORATORYCLIA [id number] [address] [place] Hematocrit (Bld) [Volume fraction] 27.2 % Low 39.0-51.0 [facility] Comment on above: Order Comment: Speci men Type: BLOOD SPECIMENOrdering Facility: [facility] Address: [address] [place] [address] Performed By: #### 5 8410-2 ####ADK[facility] LABORATORYCLIA [id number] [place] [address] [place] Hemoglobin (Bld) [Mass/Vol] 8.9 g/dL Low 13.0-17.0 [facility] Comment on above: Order Comment: Speci men Type: BLOOD SPECIMENOrdering Facility: [facility] Address: [address] [place] [address] Performed By: #### 5 8410-2 ####ADKINS LABORATORYCLIA [id number] [place] [address] [place] MCH (RBC) [Entitic mass] 28.5 pg Normal 26.0-34.0 [facility] Comment on above: Order Comment: Speci men Type: BLOOD SPECIMENOrdering Facility: [facility] Address: [address] [place] [address] Performed By: #### 5 8410-2 ####ADKINS LABORATORYCLIA [id number] [place] [address] MCHC (RBC) [Mass/Vol] 32.7 g/dL Normal 30.5-36.0 [facility] Comment on above: Order Comment: Speci men Type: BLOOD SPECIMENOrdering Facility: [facility] Address: [address] [place] [address] Performed By: #### 5 8410-2 ####ADKINS LABORATORYCLIA [id number] [address] MCV (RBC) [Entitic vol] 87.2 fL Normal 80.0-100.0 [facility] Comment on above: Order Comment: Speci men Type: BLOOD SPECIMENOrdering Facility: [facility] Address: [address] [place] [address] Performed By: #### 5 8410-2 ####ADKINS LABORATORYCLIA [id number] [address] Nucleated RBC (Bld) [#/Vol] 10*3/uL Normal <0.01 [facility] Comment on above: Order Comment: Speci men Type: BLOOD SPECIMENOrdering Facility: [facility] Address: [address] [place] [address] Performed By: #### 5 8410-2 ####ADKINS LABORATORYCLIA [id number] [address] Platelet mean volume (Bld) [Entitic vol] 9.5 fL Normal 9.0-12.7 [facility] Comment on above: Order Comment: Speci men Type: BLOOD SPECIMENOrdering Facility: [facility] Address: [address] [place] [address] Performed By: #### 5 8410-2 ####ADKINS LABORATORYCLIA [id number] [address] [place] Platelets (Bld) [#/Vol] 146 10*3/uL Low 150-400 [facility] Comment on above: Order Comment: Speci men Type: BLOOD SPECIMENOrdering Facility: [facility] Address: [address] [place] [address] Performed By: #### 5 8410-2 ####ADKINS LABORATORYCLIA [id number] [place] [address] [place] RBC (Bld) [#/Vol] 3.12 10*6/uL Low 4.20-6.00 [facility] Comment on above: Order Comment: Speci men Type: BLOOD SPECIMENOrdering Facility: [facility] Address: [address] [place] [address] Performed By: #### 5 8410-2 ####ADKINS LABORATORYCLIA [id number] [place] [address] [place] WBC (Bld) [#/Vol] 4.90 10*3/uL Normal 3.70-11.00 [facility] Comment on above: Order Comment: Speci men Type: BLOOD SPECIMENOrdering Facility: [facility] Address: [address] [place] [address] Performed By: #### 5 8410-2 ####[facility]WT[facility] LABORATORYCLIA [id number] [address] CONSULT PROGon 07-23-2024 CONSULT PROG Normal [facility] Comprehensive metabolic 2000 panelon 07-23-2024 Albumin [Mass/Vol] 3.0 g/dL Low 3.9-4.9 [facility] Comment on above: Order Comment: Speci men Type: BLOOD SPECIMENOrdering Facility: [facility] Address: [address] [place] [address] Performed By: #### 2 4323-8 ####LAWT[facility] LABORATORYCLIA [id number] [address] [place] ALP [Catalytic activity/Vol] 104 U/L Normal 38-113 [facility] Comment on above: Order Comment: Speci men Type: BLOOD SPECIMENOrdering Facility: [facility] Address: [address] [place] [address] Performed By: #### 2 4323-8 ####ADKINS LABORATORYCLIA [id number] [address] ALT [Catalytic activity/Vol] 13 U/L Normal 10-54 [facility] Comment on above: Order Comment: Speci men Type: BLOOD SPECIMENOrdering Facility: [facility] Address: [address] [place] [address] Performed By: #### 2 4323-8 ####ADKINS LABORATORYCLIA [id number] [place] [address] [place] Anion gap [Moles/Vol] 10 mmol/L Normal 8-15 [facility] Comment on above: Order Comment: Speci men Type: BLOOD SPECIMENOrdering Facility: [facility] Address: [address] [place] [address] Performed By: #### 2 4323-8 ####ADKINS LABORATORYCLIA [id number] [place] [address] [place] AST [Catalytic activity/Vol] 16 U/L Normal 14-40 [facility] Comment on above: Order Comment: Speci men Type: BLOOD SPECIMENOrdering Facility: [facility] Address: [address] [place] [address] Performed By: #### 2 4323-8 ####ADKINS LABORATORYCLIA [id number] [place] [address] [place] Bilirubin [Mass/Vol] 0.3 mg/dL Normal 0.2-1.3 [facility] Comment on above: Order Comment: Speci men Type: BLOOD SPECIMENOrdering Facility: [facility] Address: [address] [place] [address] Performed By: #### 2 4323-8 ####ADKINS LABORATORYCLIA [id number] [address] [place] Calcium [Mass/Vol] 8.3 mg/dL Low 8.5-10.2 [facility] Comment on above: Order Comment: Speci men Type: BLOOD SPECIMENOrdering Facility: [facility] Address: [address] [place] [address] Performed By: #### 2 4323-8 ####ADK[facility] LABORATORYCLIA [id number] [address] [place] Chloride [Moles/Vol] 98 mmol/L Normal 98-107 [facility] Comment on above: Order Comment: Speci men Type: BLOOD SPECIMENOrdering Facility: [facility] Address: [address] [place] [address] Performed By: #### 2 4323-8 ####ADKINS LABORATORYCLIA [id number] [place] [address] [place] CO2 [Moles/Vol] 28 mmol/L Normal 22-30 [facility] Comment on above: Order Comment: Luz vaughan Type: BLOOD SPECIMENOrdering Facility: [facility] Address: [address] [place] [address] Performed By: #### 2 4323-8 ####ADKINS LABORATORYCLIA [id number] [address] [place] Creatinine [Mass/Vol] 3.84 mg/dL High 0.73-1.22 [facility] Comment on above: Order Comment: Luz vaughan Type: BLOOD SPECIMENOrdering Facility: [facility] Address: [address] [place] [address] Performed By: #### 2 4323-8 ####ADK[facility] LABORATORYCLIA [id number] [address] Creatinine and Glomerular filtration rate.predicted panel (S/P/Bld) 17 mL/min/1.73m??? Low >=60 [facility] Comment on above: Order Comment: Luz vaughan Type: BLOOD SPECIMENOrdering Facility: [facility] Address: [address] [place] [address] Result Comment: Breanne mated Glomerular Filtration Rate [...] Performed By: #### 2 4323-8 ####ADKINS LABORATORYCLIA [id number] [address] STATES OF [facility] Glucose [Mass/Vol] 153 mg/dL High 74-99 [facility] Comment on above: Order Comment: Luz vaughan Type: BLOOD SPECIMENOrdering Facility: [facility] Address: [address] [place] [address] Result Comment: The [place] [employer] (ADA) provides guidance for cutoff [...] Standards of Medical Care in Diabetes 2016, [place] [employer]. Diabetes Care. 2016.39(Suppl 1). Performed By: #### 2 4323-8 ####ADKINS LABORATORYCLIA [id number] [place] [address] [place] Potassium [Moles/Vol] 4.2 mmol/L Normal 3.7-5.1 [facility] Comment on above: Order Comment: Luz vaughan Type: BLOOD SPECIMENOrdering Facility: [facility] Address: [address] [place] [address] Performed By: #### 2 4323-8 ####ADKINS LABORATORYCLIA [id number] [place] [address] [place] Protein [Mass/Vol] 6.1 g/dL Low 6.3-8.0 [facility] Comment on above: Order Comment: Luz vaughan Type: BLOOD SPECIMENOrdering Facility: [facility] Address: [address] [place] [address] Performed By: #### 2 4323-8 ####ADKINS LABORATORYCLIA [id number] [place] [address] [place] Sodium [Moles/Vol] 136 mmol/L Normal 136-144 [facility] Comment on above: Order Comment: Luz vaughan Type: BLOOD SPECIMENOrdering Facility: [facility] Address: [address] [place] [address] Performed By: #### 2 4323-8 ####ADK[facility] LABORATORYCLIA [id number] [place] [address] [place] Urea nitrogen [Mass/Vol] 31 mg/dL High 9-24 [facility] Comment on above: Order Comment: Speci men Type: BLOOD SPECIMENOrdering Facility: [facility] Address: [address] [place] [address] Performed By: #### 2 4323-8 ####ADKINS LABORATORYCLIA [id number] [address] [place] THERAPY NTon 07-23-2024 THERAPY NT Normal [facility] THERAPY NT Normal [facility] [facility] THERAP[facility] NT Normal [facility] Urinalysis complete panel (U )on 07-23-2024 Bilirubin Ql (U) Negative Normal Negative [facility] Comment on above: Order Comment: Speci men Type: URINE SPECIMENOrdering Facility: [facility] Address: [address] [place] [address] Performed By: #### 2 4356-8 ####ADK[facility] LABORATORYCLIA [id number] [address] Clarity (Unsp spec) Slightly Cloudy Abnormal Clear [facility] Comment on above: Order Comment: Speci men Type: URINE SPECIMENOrdering Facility: [facility] Address: [address] [place] [address] Performed By: #### 2 4356-8 ####ADKINS LABORATORYCLIA [id number] [address] Color (U) Yellow Normal Yellow [facility] Comment on above: Order Comment: Speci men Type: URINE SPECIMENOrdering Facility: [facility] Address: [address] [place] [address] Performed By: #### 2 4356-8 ####ADKINS LABORATORYCLIA [id number] [address] [place] Glucose Test strip (U) [Mass/Vol] 1+ Abnormal Negative [facility] Comment on above: Order Comment: Speci men Type: URINE SPECIMENOrdering Facility: [facility] Address: [address] [place] [address] Performed By: #### 2 4356-8 ####ADKINS LABORATORYCLIA [id number] [address] [place] Granular casts (Urine sed) [#/Area] 1-3 /LPF Abnormal 0 /LPF [facility] Comment on above: Order Comment: Speci men Type: URINE SPECIMENOrdering Facility: [facility] Address: [address] [place] [address] Performed By: #### 2 4356-8 ####ADKINS LABORATORYCLIA [id number] [place] [address] [place] Hemoglobin Ql (U) Negative Normal Negative [facility] Comment on above: Order Comment: Speci men Type: URINE SPECIMENOrdering Facility: [facility] Address: [address] [place] [address] Performed By: #### 2 4356-8 ####ADKINS LABORATORYCLIA [id number] [address] [place] Hyaline casts (Urine sed) [#/Area] 1-3 /LPF Abnormal 0 /LPF [facility] Comment on above: Order Comment: Speci men Type: URINE SPECIMENOrdering Facility: [facility] Address: [address] [place] [address] Performed By: #### 2 4356-8 ####ADKINS LABORATORYCLIA [id number] [address] [place] [facility] Ketones Ql (U) Negative Normal Negative [facility] Comment on above: Order Comment: Speci men Type: URINE SPECIMENOrdering Facility: [facility] Address: [address] [place] [address] Performed By: #### 2 4356-8 ####ADKINS LABORATORYCLIA [id number] [address] Leukocyte esterase Test strip Ql (U) Negative Normal Negative [facility] Comment on above: Order Comment: Speci men Type: URINE SPECIMENOrdering Facility: [facility] Address: [address] [place] [address] Performed By: #### 2 4356-8 ####ADKINS LABORATORYCLIA [id number] [address] [place] Nitrite Ql (U) Negative Normal Negative [facility] Comment on above: Order Comment: Speci men Type: URINE SPECIMENOrdering Facility: [facility] Address: [address] [place] [address] Performed By: #### 2 4356-8 ####ADKINS LABORATORYCLIA [id number] [address] pH (U) 6.0 [pH] Normal 5.0-8.0 [facility] Comment on above: Order Comment: Speci men Type: URINE SPECIMENOrdering Facility: [facility] Address: [address] [place] [address] Performed By: #### 2 4356-8 ####ADKINS LABORATORYCLIA [id number] [place] [address] [place] Protein (U) [Mass/Vol] 3+ Abnormal Negative [facility] Comment on above: Order Comment: Speci men Type: URINE SPECIMENOrdering Facility: [facility] Address: [address] [place] [address] Performed By: #### 2 4356-8 ####LAWTON LABORATORYCLIA [id number] [place] [address] [place] RBC LM.HPF (Urine sed) [#/Area] 0-3 /HPF Normal 0-3 /HPF [facility] Comment on above: Order Comment: Speci men Type: URINE SPECIMENOrdering Facility: [facility] Address: [address] [place] [address] Performed By: #### 2 4356-8 ####LAWTON LABORATORYCLIA [id number] [address] [place] Specific gravity (U) [Rel density] 1.020 Normal 1.005-1.030 [facility] Comment on above: Order Comment: Speci men Type: URINE SPECIMENOrdering Facility: [facility] Address: [address] [place] [address] Performed By: #### 2 4356-8 ####ADKINS LABORATORYCLIA [id number] [address] [place] Urobilinogen Ql (U) 0.2 EU/dL Normal 0.2-1.0 EU/dL [facility] Comment on above: Order Comment: Speci men Type: URINE SPECIMENOrdering Facility: [facility] Address: [address] [place] [address] Performed By: #### 2 4356-8 ####ADKINS LABORATORYCLIA [id number] [address] WBC LM.HPF (Urine sed) [#/Area] 0-5 /HPF Normal 0-5 /HPF [facility] Comment on above: Order Comment: Speci men Type: URINE SPECIMENOrdering Facility: [facility] Address: [address] [place] [address] Performed By: #### 2 4356-8 ####ADKINS LABORATORYCLIA [id number] [address] CASE MANAGEMon 07-22-2024 CASE MANAGEM Normal [facility] CBC panel Auto (Bld)on 07-22 Erythrocyte distribution width (RBC) [Ratio] 13.1 % Normal 11.5-15.0 [facility] Comment on above: Order Comment: Speci men Type: BLOOD SPECIMENOrdering Facility: [facility] Address: [address] [place] [address] Performed By: #### 5 8410-2 ####ADKINS LABORATORYCLIA [id number] [address] [place] Hematocrit (Bld) [Volume fraction] 27.0 % Low 39.0-51.0 [facility] Comment on above: Order Comment: Speci men Type: BLOOD SPECIMENOrdering Facility: [facility] Address: [address] [place] [address] Performed By: #### 5 8410-2 ####ADKINS LABORATORYCLIA [id number] [address] [place] Hemoglobin (Bld) [Mass/Vol] 9.0 g/dL Low 13.0-17.0 [facility] Comment on above: Order Comment: Speci men Type: BLOOD SPECIMENOrdering Facility: [facility] Address: [address] [place] [address] Performed By: #### 5 8410-2 ####ADKINS LABORATORYCLIA [id number] [address] MCH (RBC) [Entitic mass] 29.0 pg Normal 26.0-34.0 [facility] Comment on above: Order Comment: Speci men Type: BLOOD SPECIMENOrdering Facility: [facility] Address: [address] [place] [address] Performed By: #### 5 8410-2 ####ADKINS LABORATORYCLIA [id number] [address] MCHC (RBC) [Mass/Vol] 33.3 g/dL Normal 30.5-36.0 [facility] Comment on above: Order Comment: Speci men Type: BLOOD SPECIMENOrdering Facility: [facility] Address: [address] [place] [address] Performed By: #### 5 8410-2 ####ADKINS LABORATORYCLIA [id number] [address] MCV (RBC) [Entitic vol] 87.1 fL Normal 80.0-100.0 [facility] Comment on above: Order Comment: Speci men Type: BLOOD SPECIMENOrdering Facility: [facility] Address: [address] [place] [address] Performed By: #### 5 8410-2 ####ADKINS LABORATORYCLIA [id number] [address] Nucleated RBC (Bld) [#/Vol] 10*3/uL Normal <0.01 [facility] Comment on above: Order Comment: Speci men Type: BLOOD SPECIMENOrdering Facility: [facility] Address: [address] [place] [address] Performed By: #### 5 8410-2 ####ADKINS LABORATORYCLIA [id number] [address] Platelet mean volume (Bld) [Entitic vol] 9.0 fL Normal 9.0-12.7 [facility] Comment on above: Order Comment: Speci men Type: BLOOD SPECIMENOrdering Facility: [facility] Address: [address] [place] [address] Performed By: #### 5 8410-2 ####ADKINS LABORATORYCLIA [id number] [place], [place] [address] [place] [address] [place] Platelets (Bld) [#/Vol] 147 10*3/uL Low 150-400 [facility] Comment on above: Order Comment: Speci men Type: BLOOD SPECIMENOrdering Facility: [facility] Address: [address] [place] [address] Performed By: #### 5 8410-2 ####ADKINS LABORATORYCLIA [id number] [place] [address] [place] RBC (Bld) [#/Vol] 3.10 10*6/uL Low 4.20-6.00 [facility] Comment on above: Order Comment: Speci men Type: BLOOD SPECIMENOrdering Facility: [facility] Address: [address] [place] [address] Performed By: #### 5 8410-2 ####ADKINS LABORATORYCLIA [id number] [address] WBC (Bld) [#/Vol] 4.92 10*3/uL Normal 3.70-11.00 [facility] Comment on above: Order Comment: Speci men Type: BLOOD SPECIMENOrdering Facility: [facility] Address: [address] [place] [address] Performed By: #### 5 8410-2 ####ADKINS LABORATORYCLIA [id number] [address] OF [facility] CONSULT PROGon 07-22-2024 CONSULT PROG Normal [facility] Comprehensive metabolic 2000 panelon 07-22-2024 Albumin [Mass/Vol] 2.9 g/dL Low 3.9-4.9 [facility] Comment on above: Order Comment: Speci men Type: BLOOD SPECIMENOrdering Facility: [facility] Address: [address] [place] [address] Performed By: #### 2 4323-8 ####ADKINS LABORATORYCLIA [id number] [address] [place] ALP [Catalytic activity/Vol] 102 U/L Normal 38-113 [facility] Comment on above: Order Comment: Speci men Type: BLOOD SPECIMENOrdering Facility: [facility] Address: [address] [place] [address] Performed By: #### 2 4323-8 ####ADKINS LABORATORYCLIA [id number] [address] [place] [facility] ALT [Catalytic activity/Vol] 12 U/L Normal 10-54 [facility] Comment on above: Order Comment: Speci men Type: BLOOD SPECIMENOrdering Facility: [facility] Address: [address] [place] [address] Performed By: #### 2 4323-8 ####ADKINS LABORATORYCLIA [id number] [place] [address] [place] Anion gap [Moles/Vol] 11 mmol/L Normal 8-15 [facility] Comment on above: Order Comment: Speci men Type: BLOOD SPECIMENOrdering Facility: [facility] Address: [address] [place] [address] Performed By: #### 2 4323-8 ####ADKINS LABORATORYCLIA [id number] [place] [address] [place] AST [Catalytic activity/Vol] 18 U/L Normal 14-40 [facility] Comment on above: Order Comment: Speci men Type: BLOOD SPECIMENOrdering Facility: [facility] Address: [address] [place] [address] Performed By: #### 2 4323-8 ####ADKINS LABORATORYCLIA [id number] [place] [address] [place] Bilirubin [Mass/Vol] 0.2 mg/dL Normal 0.2-1.3 [facility] Comment on above: Order Comment: Speci men Type: BLOOD SPECIMENOrdering Facility: [facility] Address: [address] [place] [address] Performed By: #### 2 4323-8 ####ADKINS LABORATORYCLIA [id number] [place] [address] [place] Calcium [Mass/Vol] 8.4 mg/dL Low 8.5-10.2 [facility] Comment on above: Order Comment: Speci men Type: BLOOD SPECIMENOrdering Facility: [facility] Address: [address] [place] [address] Performed By: #### 2 4323-8 ####ADKINS LABORATORYCLIA [id number] [address] [place] Chloride [Moles/Vol] 99 mmol/L Normal 98-107 [facility] Comment on above: Order Comment: Speci men Type: BLOOD SPECIMENOrdering Facility: [facility] Address: [address] [place] [address] Performed By: #### 2 4323-8 ####ADKINS LABORATORYCLIA [id number] [place] [address] [place] CO2 [Moles/Vol] 26 mmol/L Normal 22-30 [facility] Comment on above: Order Comment: Speci men Type: BLOOD SPECIMENOrdering Facility: [facility] Address: [address] [place] [address] Performed By: #### 2 4323-8 ####ADKINS LABORATORYCLIA [id number] [address] STATES OF [facility] Creatinine [Mass/Vol] 5.23 mg/dL High 0.73-1.22 [facility] Comment on above: Order Comment: Speci men Type: BLOOD SPECIMENOrdering Facility: [facility] Address: [address] [place] [address] Performed By: #### 2 4323-8 ####ADKINS LABORATORYCLIA [id number] [address] Creatinine and Glomerular filtration rate.predicted panel (S/P/Bld) 12 mL/min/1.73m??? Low >=60 [facility] Comment on above: Order Comment: Speci men Type: BLOOD SPECIMENOrdering Facility: [facility] Address: [address] [place] [address] Result Comment: Breanne mated Glomerular Filtration Rate [...] Performed By: #### 2 4323-8 ####ADKINS LABORATORYCLIA [id number] [place] [address] [place] Glucose [Mass/Vol] 108 mg/dL High 74-99 [facility] Comment on above: Order Comment: Luz vaughan Type: BLOOD SPECIMENOrdering Facility: [facility] Address: [address] [place] [address] Result Comment: The [place] [employer] (ADA) provides guidance for cutoff [...] Standards of Medical Care in Diabetes 2016, [place] [employer]. Diabetes Care. 2016.39(Suppl 1). Performed By: #### 2 4323-8 ####[facility] LABORATORYCLIA [id number] [place] [address] [place] Potassium [Moles/Vol] 4.0 mmol/L Normal 3.7-5.1 [facility] Comment on above: Order Comment: Luz vaughan Type: BLOOD SPECIMENOrdering Facility: [facility] Address: [address] [place] [address] Performed By: #### 2 4323-8 ####ADKINS LABORATORYCLIA [id number] [place] [id number] [place] Protein [Mass/Vol] 5.6 g/dL Low 6.3-8.0 [facility] Comment on above: Order Comment: Luz vaughan Type: BLOOD SPECIMENOrdering Facility: [facility] Address: [address] [place] [address] Performed By: #### 2 4323-8 ####[facility]WT[facility] LABORATORYCLIA [id number] [place] [address] [place] Sodium [Moles/Vol] 136 mmol/L Normal 136-144 [facility] Comment on above: Order Comment: Speci men Type: BLOOD SPECIMENOrdering Facility: [facility] Address: [address] [place] [address] Performed By: #### 2 4323-8 ####ADKINS LABORATORYCLIA [id number] [place] [address] [place] Urea nitrogen [Mass/Vol] 46 mg/dL High 9-24 [facility] Comment on above: Order Comment: Speci men Type: BLOOD SPECIMENOrdering Facility: [facility] Address: [address] [place], [place] [address] [address] Performed By: #### 2 4323-8 ####ADKINS LABORATORYCLIA [id number] [address] [place] THERAPY NTon 07-22-2024 THERAPY NT Normal [facility] CBC panel Auto (Bld)on 07-21 Erythrocyte distribution width (RBC) [Ratio] 13.2 % Normal 11.5-15.0 [facility] Comment on above: Order Comment: Speci men Type: BLOOD SPECIMENOrdering Facility: [facility] Address: [address] [place] [address] Performed By: #### 5 8410-2 ####ADKINS LABORATORYCLIA [id number] [address] [place] Hematocrit (Bld) [Volume fraction] 27.0 % Low 39.0-51.0 [facility] Comment on above: Order Comment: Speci men Type: BLOOD SPECIMENOrdering Facility: [facility] Address: [address] [place] [address] Performed By: #### 5 8410-2 ####ADKINS LABORATORYCLIA [id number] [address] [place] Hemoglobin (Bld) [Mass/Vol] 8.8 g/dL Low 13.0-17.0 [facility] Comment on above: Order Comment: Speci men Type: BLOOD SPECIMENOrdering Facility: [facility] Address: [address] [place] [address] [place] [address] Performed By: #### 5 8410-2 ####ADKINS LABORATORYCLIA [id number] [address] MCH (RBC) [Entitic mass] 28.6 pg Normal 26.0-34.0 [facility] Comment on above: Order Comment: Speci men Type: BLOOD SPECIMENOrdering Facility: [facility] Address: [address] [place] [address] Performed By: #### 5 8410-2 ####ADKINS LABORATORYCLIA [id number] [address] [place] MCHC (RBC) [Mass/Vol] 32.6 g/dL Normal 30.5-36.0 [facility] Comment on above: Order Comment: Speci men Type: BLOOD SPECIMENOrdering Facility: [facility] Address: [address] [place] [address] Performed By: #### 5 8410-2 ####ADKINS LABORATORYCLIA [id number] [address] MCV (RBC) [Entitic vol] 87.7 fL Normal 80.0-100.0 [facility] Comment on above: Order Comment: Speci men Type: BLOOD SPECIMENOrdering Facility: [facility] Address: [address] [place] [address] Performed By: #### 5 8410-2 ####ADKINS LABORATORYCLIA [id number] [address] Nucleated RBC (Bld) [#/Vol] 10*3/uL Normal <0.01 [facility] Comment on above: Order Comment: Speci men Type: BLOOD SPECIMENOrdering Facility: [facility] Address: [address] [place] [address] Performed By: #### 5 8410-2 ####ADKINS LABORATORYCLIA [id number] [address] Platelet mean volume (Bld) [Entitic vol] 9.2 fL Normal 9.0-12.7 [facility] Comment on above: Order Comment: Speci men Type: BLOOD SPECIMENOrdering Facility: [facility] Address: [address] [place] [address] Performed By: #### 5 8410-2 ####ADKINS LABORATORYCLIA [id number] [address] Platelets (Bld) [#/Vol] 148 10*3/uL Low 150-400 [facility] Comment on above: Order Comment: Speci men Type: BLOOD SPECIMENOrdering Facility: [facility] Address: [address] [place] [address] Performed By: #### 5 8410-2 ####ADKINS LABORATORYCLIA [id number] [address] [place] RBC (Bld) [#/Vol] 3.08 10*6/uL Low 4.20-6.00 [facility] Comment on above: Order Comment: Speci men Type: BLOOD SPECIMENOrdering Facility: [facility] Address: [address] [place] [address] Performed By: #### 5 8410-2 ####LAWTON LABORATORYCLIA [id number] [address] WBC (Bld) [#/Vol] 4.39 10*3/uL Normal 3.70-11.00 [facility] Comment on above: Order Comment: Speci men Type: BLOOD SPECIMENOrdering Facility: [facility] Address: [address] [place] [address] Performed By: #### 5 8410-2 ####LAWTON LABORATORYCLIA [id number] [address] [place] CONSULT PROGon 07-21-2024 CONSULT PROG Normal [facility] Comprehensive metabolic 2000 panelon 07-21-2024 Albumin [Mass/Vol] 3.2 g/dL Low 3.9-4.9 [facility] Comment on above: Order Comment: Speci men Type: BLOOD SPECIMENOrdering Facility: [facility] Address: [address] [place] [address] Performed By: #### 2 4323-8 ####ADKINS LABORATORYCLIA [id number] [address] ALP [Catalytic activity/Vol] 106 U/L Normal 38-113 [facility] Comment on above: Order Comment: Speci men Type: BLOOD SPECIMENOrdering Facility: [facility] Address: [address] [place] [address] Performed By: #### 2 4323-8 ####ADKINS LABORATORYCLIA [id number] [place] [address] [place] ALT [Catalytic activity/Vol] 13 U/L Normal 10-54 [facility] Comment on above: Order Comment: Speci men Type: BLOOD SPECIMENOrdering Facility: [facility] Address: [address] [place] [address] Performed By: #### 2 4323-8 ####ADKINS LABORATORYCLIA [id number] [place] [address] [place] Anion gap [Moles/Vol] 14 mmol/L Normal 8-15 [facility] Comment on above: Order Comment: Speci men Type: BLOOD SPECIMENOrdering Facility: [facility] Address: [address] [place] [address] Performed By: #### 2 4323-8 ####ADKINS LABORATORYCLIA [id number] [address] [place] AST [Catalytic activity/Vol] 25 U/L Normal 14-40 [facility] Comment on above: Order Comment: Speci men Type: BLOOD SPECIMENOrdering Facility: [facility] Address: [address] [place] [address] Performed By: #### 2 4323-8 ####ADKINS LABORATORYCLIA [id number] [place] [address] [place] Bilirubin [Mass/Vol] 0.3 mg/dL Normal 0.2-1.3 [facility] Comment on above: Order Comment: Speci men Type: BLOOD SPECIMENOrdering Facility: [facility] Address: [address] [place] [address] Performed By: #### 2 4323-8 ####ADKINS LABORATORYCLIA [id number] [place] [address] [place] Calcium [Mass/Vol] 8.6 mg/dL Normal 8.5-10.2 [facility] Comment on above: Order Comment: Speci men Type: BLOOD SPECIMENOrdering Facility: [facility] Address: [address] [place] [address] Performed By: #### 2 4323-8 ####ADKINS LABORATORYCLIA [id number] [address] OF [facility] Chloride [Moles/Vol] 96 mmol/L Low 98-107 [facility] Comment on above: Order Comment: Speci men Type: BLOOD SPECIMENOrdering Facility: [facility] Address: [address] [place] [address] Performed By: #### 2 4323-8 ####ADKINS LABORATORYCLIA [id number] [address] [place] CO2 [Moles/Vol] 25 mmol/L Normal 22-30 [facility] Comment on above: Order Comment: Speci men Type: BLOOD SPECIMENOrdering Facility: [facility] Address: [address] [place] [address] Performed By: #### 2 4323-8 ####ADKINS LABORATORYCLIA [id number] [address] [place] Creatinine [Mass/Vol] 4.12 mg/dL High 0.73-1.22 [facility] Comment on above: Order Comment: Speci men Type: BLOOD SPECIMENOrdering Facility: [facility] Address: [address] [place] [address] Performed By: #### 2 4323-8 ####ADKINS LABORATORYCLIA [id number] [address] Creatinine and Glomerular filtration rate.predicted panel (S/P/Bld) 15 mL/min/1.73m??? Low >=60 [facility] Comment on above: Order Comment: Speci men Type: BLOOD SPECIMENOrdering Facility: [facility] Address: [address] [place] [address] Result Comment: Breanne mated Glomerular Filtration Rate [...] Performed By: #### 2 4323-8 ####ADKINS LABORATORYCLIA [id number] [place] [address] [place] Glucose [Mass/Vol] 85 mg/dL Normal 74-99 [facility] Comment on above: Order Comment: Luz vaughan Type: BLOOD SPECIMENOrdering Facility: [facility] Address: [address] [place] [address] Result Comment: The [place] [employer] (ADA) provides guidance for cutoff [...] Standards of Medical Care in Diabetes 2016, [place] [employer]. Diabetes Care. 2016.39(Suppl 1). Performed By: #### 2 4323-8 ####[facility] LABORATORYCLIA [id number] [place] [address] [place] Potassium [Moles/Vol] 3.8 mmol/L Normal 3.7-5.1 [facility] Comment on above: Order Comment: Luz vaughan Type: BLOOD SPECIMENOrdering Facility: [facility] Address: [address] [place] [address] Performed By: #### 2 4323-8 ####ADKINS LABORATORYCLIA [id number] [place] [id number] [place] Protein [Mass/Vol] 5.8 g/dL Low 6.3-8.0 [facility] Comment on above: Order Comment: Luz vaughan Type: BLOOD SPECIMENOrdering Facility: [facility] Address: [address] [place] [address] Performed By: #### 2 4323-8 ####ADKINS LABORATORYCLIA [id number] [place] [address] [place] Sodium [Moles/Vol] 135 mmol/L Low 136-144 [facility] Comment on above: Order Comment: Speci men Type: BLOOD SPECIMENOrdering Facility: [facility] Address: [address] [place] [address] Performed By: #### 2 4323-8 ####ADKINS LABORATORYCLIA [id number] [place] [address] [place] Urea nitrogen [Mass/Vol] 34 mg/dL High 9-24 [facility] Comment on above: Order Comment: Speci men Type: BLOOD SPECIMENOrdering Facility: [facility] Address: [facility] [place] [address] Performed By: #### 2 4323-8 ####ADKINS LABORATORYCLIA [id number] [place] [address] [place] Basic metabolic 2000 panelon 07-20-2024 Anion gap [Moles/Vol] 15 mmol/L Normal 8-15 [facility] Comment on above: Order Comment: Speci men Type: BLOOD SPECIMENOrdering Facility: [facility] Address: [address] [place] [address] Performed By: #### 2 4321-2 ####ADKINS LABORATORYCLIA [id number] [place] [address] [place] Calcium [Mass/Vol] 9.1 mg/dL Normal 8.5-10.2 [facility] Comment on above: Order Comment: Speci men Type: BLOOD SPECIMENOrdering Facility: [facility] Address: [address] [place] [address] Performed By: #### 2 4321-2 ####ADKINS LABORATORYCLIA [id number] [place] [address] [place] Chloride [Moles/Vol] 101 mmol/L Normal 98-107 [facility] Comment on above: Order Comment: Speci men Type: BLOOD SPECIMENOrdering Facility: [facility] Address: [address] [place] [address] Performed By: #### 2 4321-2 ####ADKINS LABORATORYCLIA [id number] [place] [address] [place] CO2 [Moles/Vol] 23 mmol/L Normal 22-30 [facility] Comment on above: Order Comment: Luz clement Type: BLOOD SPECIMENOrdering Facility: [facility] Address: [address] [place] [address] Performed By: #### 2 4321-2 ####ADKINS LABORATORYCLIA [id number] [place] [address] [place] Creatinine [Mass/Vol] 5.49 mg/dL High 0.73-1.22 [facility] Comment on above: Order Comment: Speci men Type: BLOOD SPECIMENOrdering Facility: [facility] Address: [address] [place] [address] Performed By: #### 2 4321-2 ####ADKINS LABORATORYCLIA [id number] [address] Creatinine and Glomerular filtration rate.predicted panel (S/P/Bld) 11 mL/min/1.73m??? Low >=60 [facility] Comment on above: Order Comment: Speci men Type: BLOOD SPECIMENOrdering Facility: [facility] Address: [address] [place] [address] Result Comment: Breanne mated Glomerular Filtration Rate [...] Performed By: #### 2 4321-2 ####ADKINS LABORATORYCLIA [id number] [place] [id number] [place] Glucose [Mass/Vol] 123 mg/dL High 74-99 [facility] Comment on above: Order Comment: Luz vaughan Type: BLOOD SPECIMENOrdering Facility: [facility] Address: [address] [place] [address] Result Comment: The [place] Diabetes Association (ADA) provides guidance for cutoff [...] Standards of Medical Care in Diabetes 2016, [place] [employer]. Diabetes Care. 2016.39(Suppl 1). Performed By: #### 2 4321-2 ####LAWTON LABORATORYCLIA [id number] [place] [address] [place] Potassium [Moles/Vol] 4.5 mmol/L Normal 3.7-5.1 [facility] Comment on above: Order Comment: Speci clement Type: BLOOD SPECIMENOrdering Facility: [facility] Address: [address] [place] [address] Performed By: #### 2 4321-2 ####LAWTON LABORATORYCLIA [id number] [place] [address] [place] Sodium [Moles/Vol] 139 mmol/L Normal 136-144 [facility] Comment on above: Order Comment: Luz vaughan Type: BLOOD SPECIMENOrdering Facility: [facility] Address: [address] [place] [address] Performed By: #### 2 4321-2 ####LAWTON LABORATORYCLIA [id number] [place] [address] [place] Urea nitrogen [Mass/Vol] 57 mg/dL High 9-24 [facility] Comment on above: Order Comment: Speci men Type: BLOOD SPECIMENOrdering Facility: [facility] Address: [address] [place] [address] Performed By: #### 2 4321-2 ####LAWTON LABORATORYCLIA [id number] [place] [address] [place] BRAIN WO IVCONon 07-21-19 CT BRAIN WO IVCON [facility] NURSING PROGon 07-20-2024 NURSING PROG [facility] CASE MANAGEMon 07-19-2024 CASE MANAGEM Normal [facility] CONSULT PROGon 07-19-2024 CONSULT PROG Normal [facility] Renal function 2000 panelon 07-19-2024 Albumin [Mass/Vol] 3.2 g/dL Low 3.9-4.9 [facility] Comment on above: Order Comment: Speci men Type: BLOOD SPECIMENOrdering Facility: [facility] Address: [address] [place] [address] Performed By: #### 2 4362-6 ####ADKINS LABORATORYCLIA [id number] [place] [address] [place] Anion gap [Moles/Vol] 20 mmol/L High 8-15 [facility] Comment on above: Order Comment: Speci men Type: BLOOD SPECIMENOrdering Facility: [facility] Address: [address] [place] [address] Performed By: #### 2 4362-6 ####ADKINS LABORATORYCLIA [id number] [place] [address] [place] Calcium [Mass/Vol] 9.1 mg/dL Normal 8.5-10.2 [facility] Comment on above: Order Comment: Speci men Type: BLOOD SPECIMENOrdering Facility: [facility] Address: [address] [place] [address] Performed By: #### 2 4362-6 ####ADKINS LABORATORYCLIA [id number] [place] [address] [place] Chloride [Moles/Vol] 109 mmol/L High 98-107 [facility] Comment on above: Order Comment: Speci men Type: BLOOD SPECIMENOrdering Facility: [facility] Address: [address] [place] [address] Performed By: #### 2 4362-6 ####ADKINS LABORATORYCLIA [id number] [place] [address] [place] CO2 [Moles/Vol] 16 mmol/L Low 22-30 [facility] Comment on above: Order Comment: Speci men Type: BLOOD SPECIMENOrdering Facility: [facility] Address: [address] [place] [address] Performed By: #### 2 4362-6 ####ADKINS LABORATORYCLIA [id number] [place] [address] [place] Creatinine [Mass/Vol] 6.51 mg/dL High 0.73-1.22 [facility] Comment on above: Order Comment: Luz vaughan Type: BLOOD SPECIMENOrdering Facility: [facility] Address: [address] [place] [address] Performed By: #### 2 4362-6 ####LAWTON LABORATORYCLIA [id number] [address] Creatinine and Glomerular filtration rate.predicted panel (S/P/Bld) 9 mL/min/1.73m??? Low >=60 [facility] Comment on above: Order Comment: Luz vaughan Type: BLOOD SPECIMENOrdering Facility: [facility] Address: [address] [place] [address] Result Comment: Breanne mated Glomerular Filtration Rate [...] Performed By: #### 2 4362-6 ####ADKINS LABORATORYCLIA [id number] [address] [place] Glucose [Mass/Vol] 100 mg/dL High 74-99 [facility] Comment on above: Order Comment: Luz vaughan Type: BLOOD SPECIMENOrdering Facility: [facility] Address: [address] [place] [address] Result Comment: The [place] Diabetes Association (ADA) provides guidance for cutoff [...] Standards of Medical Care in Diabetes 2016, [place] [employer]. Diabetes Care. 2016.39(Suppl 1). Performed By: #### 2 4362-6 ####ADKINS LABORATORYCLIA [id number] [place] [address] [place] Phosphate [Mass/Vol] 10.9 mg/dL High 2.7-4.8 [facility] Comment on above: Order Comment: Speci men Type: BLOOD SPECIMENOrdering Facility: [facility] Address: [address] [place] [address] Performed By: #### 2 4362-6 ####ADKINS LABORATORYCLIA [id number] [place] [address] [place] Potassium [Moles/Vol] 5.4 mmol/L High 3.7-5.1 [facility] Comment on above: Order Comment: Brooksi clement Type: BLOOD SPECIMENOrdering Facility: [facility] Address: [address] [place] [address] Performed By: #### 2 4362-6 ####ADKINS LABORATORYCLIA [id number] [address] [place] Sodium [Moles/Vol] 145 mmol/L High 136-144 [facility] Comment on above: Order Comment: Brooksi clement Type: BLOOD SPECIMENOrdering Facility: [facility] Address: [address] [place] [address] Performed By: #### 2 4362-6 ####ADKINS LABORATORYCLIA [id number] [place] [address] [place] Urea nitrogen [Mass/Vol] 83 mg/dL High 9-24 [facility] Comment on above: Order Comment: Brooksi men Type: BLOOD SPECIMENOrdering Facility: [facility] Address: [address] [place] [address] Performed By: #### 2 4362-6 ####ADKINS LABORATORYCLIA [id number] [place] [address] [place] BRIEF OP NOTon 07-18-2024 BRIEF OP NOT Normal [facility] CASE MANAGEMon 07-18-2024 CASE MANAGEM Normal [facility] CBC W Auto Differential pane l (Bld)on 07-18-2024 Basophils (Bld) [#/Vol] 10*3/uL Normal <0.11 [facility] Comment on above: Order Comment: Speci men Type: BLOOD SPECIMENOrdering Facility: [facility] Address: [address] [place] [address] Performed By: #### 5 7021-8 ####ADKINS LABORATORYCLIA [id number] [place] [address] [place] Basophils/100 WBC (Bld) 0.2 % Normal [facility] Comment on above: Order Comment: Speci men Type: BLOOD SPECIMENOrdering Facility: [facility] Address: [address] [place] [address] Performed By: #### 5 7021-8 ####ADKINS LABORATORYCLIA [id number] [place] [address] [place] Differential cell count method Nom (Bld) Auto Normal [facility] Comment on above: Order Comment: Speci men Type: BLOOD SPECIMENOrdering Facility: [facility] Address: [address] [place] [address] Performed By: #### 5 7021-8 ####ADKINS LABORATORYCLIA [id number] [place] [address] [place] Eosinophils (Bld) [#/Vol] 0.49 10*3/uL High <0.46 [facility] Comment on above: Order Comment: Speci men Type: BLOOD SPECIMENOrdering Facility: [facility] Address: [address] [place] [address] Performed By: #### 5 7021-8 ####ADKINS LABORATORYCLIA [id number] [place] [address] [place] Eosinophils/100 WBC (Bld) 8.3 % Normal [facility] Comment on above: Order Comment: Speci men Type: BLOOD SPECIMENOrdering Facility: [facility] Address: [address] [place] [address] Performed By: #### 5 7021-8 ####ADKINS LABORATORYCLIA [id number] [place] [address] [place] Erythrocyte distribution width (RBC) [Ratio] 13.2 % Normal 11.5-15.0 [facility] Comment on above: Order Comment: Speci men Type: BLOOD SPECIMENOrdering Facility: [facility] Address: [address] [place] [address] Performed By: #### 5 7021-8 ####ADKINS LABORATORYCLIA [id number] [place] [address] [place] Hematocrit (Bld) [Volume fraction] 29.6 % Low 39.0-51.0 [facility] Comment on above: Order Comment: Speci men Type: BLOOD SPECIMENOrdering Facility: [facility] Address: [address] [place] [address] Performed By: #### 5 7021-8 ####ADKINS LABORATORYCLIA [id number] [place] [address] [place] Hemoglobin (Bld) [Mass/Vol] 9.4 g/dL Low 13.0-17.0 [facility] Comment on above: Order Comment: Speci men Type: BLOOD SPECIMENOrdering Facility: [facility] Address: [address] [place] [address] Performed By: #### 5 7021-8 ####ADKINS LABORATORYCLIA [id number] [place] [address] [place] Immature granulocytes (Bld) [#/Vol] 10*3/uL Normal <0.10 [facility] Comment on above: Order Comment: Speci men Type: BLOOD SPECIMENOrdering Facility: [facility] Address: [address] [place] [address] Performed By: #### 5 7021-8 ####ADKINS LABORATORYCLIA [id number] [place] [address] [place] Immature granulocytes/100 WBC (Bld) 0.3 % Normal [facility] Comment on above: Order Comment: Speci men Type: BLOOD SPECIMENOrdering Facility: [facility] Address: [address] [place] [address] Performed By: #### 5 7021-8 ####ADKINS LABORATORYCLIA [id number] [address] Lymphocytes (Bld) [#/Vol] 1.17 10*3/uL Normal 1.00-4.00 [facility] Comment on above: Order Comment: Speci men Type: BLOOD SPECIMENOrdering Facility: [facility] Address: [address] [place] [address] Performed By: #### 5 7021-8 ####ADKINS LABORATORYCLIA [id number] [address] Lymphocytes/100 WBC (Bld) 19.8 % Normal [facility] Comment on above: Order Comment: Speci men Type: BLOOD SPECIMENOrdering Facility: [facility] Address: [address] [place] [address] Performed By: #### 5 7021-8 ####ADKINS LABORATORYCLIA [id number] [address] MCH (RBC) [Entitic mass] 28.7 pg Normal 26.0-34.0 [facility] Comment on above: Order Comment: Speci men Type: BLOOD SPECIMENOrdering Facility: [facility] Address: [address] [place] [address] Performed By: #### 5 7021-8 ####ADKINS LABORATORYCLIA [id number] [address] MCHC (RBC) [Mass/Vol] 31.8 g/dL Normal 30.5-36.0 [facility] Comment on above: Order Comment: Speci men Type: BLOOD SPECIMENOrdering Facility: [facility] Address: [address] [place] [address] Performed By: #### 5 7021-8 ####ADKINS LABORATORYCLIA [id number] [address] MCV (RBC) [Entitic vol] 90.5 fL Normal 80.0-100.0 [facility] Comment on above: Order Comment: Speci men Type: BLOOD SPECIMENOrdering Facility: [facility] Address: [address] [place] [address] Performed By: #### 5 7021-8 ####ADKINS LABORATORYCLIA [id number] [place] [address] [place] Monocytes (Bld) [#/Vol] 0.64 10*3/uL Normal <0.87 [facility] Comment on above: Order Comment: Speci men Type: BLOOD SPECIMENOrdering Facility: [facility] Address: [address] [place] [address] Performed By: #### 5 7021-8 ####ADKINS LABORATORYCLIA [id number] [address] Monocytes/100 WBC (Bld) 10.8 % Normal [facility] Comment on above: Order Comment: Speci men Type: BLOOD SPECIMENOrdering Facility: [facility] Address: [address] [place] [address] Performed By: #### 5 7021-8 ####ADKINS LABORATORYCLIA [id number] [address] [place] Neutrophils (Bld) [#/Vol] 3.59 10*3/uL Normal 1.45-7.50 [facility] Comment on above: Order Comment: Speci men Type: BLOOD SPECIMENOrdering Facility: [facility] Address: [address] [place] [address] Performed By: #### 5 7021-8 ####ADKINS LABORATORYCLIA [id number] [address] Neutrophils/100 WBC (Bld) 60.6 % Normal [facility] Comment on above: Order Comment: Speci men Type: BLOOD SPECIMENOrdering Facility: [facility] Address: [address] [place] [address] Performed By: #### 5 7021-8 ####ADKINS LABORATORYCLIA [id number] [place] [address] [place] Nucleated RBC (Bld) [#/Vol] 10*3/uL Normal <0.01 [facility] Comment on above: Order Comment: Speci men Type: BLOOD SPECIMENOrdering Facility: [facility] Address: [address] [place] [address] Performed By: #### 5 7021-8 ####ADKINS LABORATORYCLIA [id number] [address] [place] Nucleated RBC/100 WBC (Bld) [Ratio] 0.0 /100 WBC Normal [facility] Comment on above: Order Comment: Speci men Type: BLOOD SPECIMENOrdering Facility: [facility] Address: [address] [place] [address] Performed By: #### 5 7021-8 ####ADKINS LABORATORYCLIA [id number] [place] [address] [place] Platelet mean volume (Bld) [Entitic vol] 9.7 fL Normal 9.0-12.7 [facility] Comment on above: Order Comment: Speci men Type: BLOOD SPECIMENOrdering Facility: [facility] Address: [address] [place] [address] Performed By: #### 5 7021-8 ####ADKINS LABORATORYCLIA [id number] [address] [place] Platelets (Bld) [#/Vol] 198 10*3/uL Normal 150-400 [facility] Comment on above: Order Comment: Speci men Type: BLOOD SPECIMENOrdering Facility: [facility] Address: [address] [place] [address] Performed By: #### 5 7021-8 ####ADKINS LABORATORYCLIA [id number] [address] [place] RBC (Bld) [#/Vol] 3.27 10*6/uL Low 4.20-6.00 [facility] Comment on above: Order Comment: Speci men Type: BLOOD SPECIMENOrdering Facility: [facility] Address: [address] [place] [address] Performed By: #### 5 7021-8 ####ADKINS LABORATORYCLIA [id number] [address] [place] WBC (Bld) [#/Vol] 5.92 10*3/uL Normal 3.70-11.00 [facility] Comment on above: Order Comment: Speci men Type: BLOOD SPECIMENOrdering Facility: [facility] Address: [address] [place] [address] Performed By: #### 5 7021-8 ####ADKINS LABORATORYCLIA [id number] [place] [address] [place] CONSULT PROGon 07-18-2024 CONSULT PROG Normal [facility] Comprehensive metabolic 2000 panelon 07-18-2024 Albumin [Mass/Vol] 3.0 g/dL Low 3.9-4.9 [facility] Comment on above: Order Comment: Speci men Type: BLOOD SPECIMENOrdering Facility: [facility] Address: [address] [place], [place] [address] [address] Performed By: #### 2 4323-8 ####ADKINS LABORATORYCLIA [id number] [address] ALP [Catalytic activity/Vol] 103 U/L Normal 38-113 [facility] Comment on above: Order Comment: Speci men Type: BLOOD SPECIMENOrdering Facility: [facility] Address: [address] [place] [address] Performed By: #### 2 4323-8 ####ADKINS LABORATORYCLIA [id number] [address] [place] [facility] ALT [Catalytic activity/Vol] 8 U/L Low 10-54 [facility] Comment on above: Order Comment: Speci men Type: BLOOD SPECIMENOrdering Facility: [facility] Address: [address] [place] [address] Performed By: #### 2 4323-8 ####ADKINS LABORATORYCLIA [id number] [address] Anion gap [Moles/Vol] 11 mmol/L Normal 8-15 [facility] Comment on above: Order Comment: Speci men Type: BLOOD SPECIMENOrdering Facility: [facility] Address: [address] [place] [address] Performed By: #### 2 4323-8 ####ADKINS LABORATORYCLIA [id number] [address] [place] AST [Catalytic activity/Vol] 10 U/L Low 14-40 [facility] Comment on above: Order Comment: Speci men Type: BLOOD SPECIMENOrdering Facility: [facility] Address: [address] [place] [address] Performed By: #### 2 4323-8 ####ADKINS LABORATORYCLIA [id number] [place] [address] [place] Bilirubin [Mass/Vol] 0.2 mg/dL Normal 0.2-1.3 [facility] Comment on above: Order Comment: Speci men Type: BLOOD SPECIMENOrdering Facility: [facility] Address: [address] [place] [address] Performed By: #### 2 4323-8 ####ADKINS LABORATORYCLIA [id number] [place] [address] [place] Calcium [Mass/Vol] 9.1 mg/dL Normal 8.5-10.2 [facility] Comment on above: Order Comment: Speci men Type: BLOOD SPECIMENOrdering Facility: [facility] Address: [address] [place] [address] Performed By: #### 2 4323-8 ####ADKINS LABORATORYCLIA [id number] [place] [address] [place] Chloride [Moles/Vol] 112 mmol/L High 98-107 [facility] Comment on above: Order Comment: Speci men Type: BLOOD SPECIMENOrdering Facility: [facility] Address: [address] [place] [address] Performed By: #### 2 4323-8 ####ADKINS LABORATORYCLIA [id number] [place] [address] [place] CO2 [Moles/Vol] 20 mmol/L Low 22-30 [facility] Comment on above: Order Comment: Speci men Type: BLOOD SPECIMENOrdering Facility: [facility] Address: [address] [place] [address] Performed By: #### 2 4323-8 ####ADKINS LABORATORYCLIA [id number] [place] [address] [place] Creatinine [Mass/Vol] 5.34 mg/dL High 0.73-1.22 [facility] Comment on above: Order Comment: Speci men Type: BLOOD SPECIMENOrdering Facility: [facility] Address: [address] [place] [address] Performed By: #### 2 4323-8 ####ADKINS LABORATORYCLIA [id number] [place] [id number] [facility] Creatinine and Glomerular filtration rate.predicted panel (S/P/Bld) 11 mL/min/1.73m??? Low >=60 [facility] Comment on above: Order Comment: Luz vaughan Type: BLOOD SPECIMENOrdering Facility: [facility] Address: [address] [place] [address] Result Comment: Breanne mated Glomerular Filtration Rate [...] Performed By: #### 2 4323-8 ####ADKINS LABORATORYCLIA [id number] [place] [id number] [place] [facility] Glucose [Mass/Vol] 72 mg/dL Low 74-99 [facility] Comment on above: Order Comment: Luz vaughan Type: BLOOD SPECIMENOrdering Facility: [facility] Address: [address] [place] [address] Result Comment: The [place] [employer] (ADA) provides guidance for cutoff [...] Standards of Medical Care in Diabetes 2016, [place] [employer]. Diabetes Care. 2016.39(Suppl 1). Performed By: #### 2 4323-8 ####ADKINS LABORATORYCLIA [id number] [place] [address] Potassium [Moles/Vol] 5.2 mmol/L High 3.7-5.1 [facility] Comment on above: Order Comment: Speci men Type: BLOOD SPECIMENOrdering Facility: [facility] Address: [address] [place] [address] Performed By: #### 2 4323-8 ####ADKINS LABORATORYCLIA [id number] [address] [place] Protein [Mass/Vol] 5.9 g/dL Low 6.3-8.0 [facility] Comment on above: Order Comment: Speci men Type: BLOOD SPECIMENOrdering Facility: [facility] Address: [address] [place] [address] Performed By: #### 2 4323-8 ####ADKINS LABORATORYCLIA [id number] [address] Sodium [Moles/Vol] 143 mmol/L Normal 136-144 [facility] Comment on above: Order Comment: Speci men Type: BLOOD SPECIMENOrdering Facility: [facility] Address: [address] [place] [address] Performed By: #### 2 4323-8 ####[facility] LABORATORYCLIA [id number] [address] [place] Urea nitrogen [Mass/Vol] 76 mg/dL High 9-24 [facility] Comment on above: Order Comment: Speci men Type: BLOOD SPECIMENOrdering Facility: [facility] Address: [address] [place] [address] Performed By: #### 2 4323-8 ####ADK[facility] LABORATORYCLIA [id number] [address] [place] HBV surface Ab Ql (S)on 07-02 HBV surface Ab Qn (S) <8.00 Normal [facility] Comment on above: Order Comment: Speci men Type: BLOOD SPECIMENOrdering Facility: [facility] Address: [address] [place] [address] Result Comment: <8 m IU/mL: No serological evidence of immunity to Hepatitis B Virus.>/= 8 to <12 mIU/mL: No serological evidence of immunity to Hepatitis B Virus.>/= 12 mIU/mL: Consistent with serological evidence of immunity to Hepatitis B Virus. Performed By: #### 2 2322-2, 5195-3 ####[facility] LABIA [id number] [address] [place] HBV surface Ab Ser Qlon 07-02 HBV surface Ab Ql (S) Negative Normal [facility] Comment on above: Order Comment: Speci men Type: BLOOD SPECIMENOrdering Facility: [facility] Address: [address] [place] [address] Result Comment: No s erological evidence of immunity to Hepatitis B Virus. Performed By: #### 2 2322-2, 5195-3 ####[facility] [id number] [place] [address] [place] HBV surface Ag Ser Qlon 07-02 HBV surface Ag Ql (S) Negative Normal Negative [facility] Comment on above: Order Comment: Speci men Type: BLOOD SPECIMENOrdering Facility: [facility] Address: [address] [place] [address] Performed By: #### 2 2322-2, 5195-3 ####[facility] [id number] [address] [place] IR CVC TUNNEL W/O PORT INSER Ton 07-18-2024 IR CVC TUNNEL W/O PORT INSERT [facility] NURSING PROGon 07-18-2024 NURSING PROG [facility] PT EDon 07-18-2024 PT ED [facility] THERAPY NTon 07-18-2024 THERAPY NT [facility] CASE MANAGEMon 07-17-2024 CASE MANAGEM [facility] CBC W Auto Differential pane l (Bld)on 07-17-2024 Basophils (Bld) [#/Vol] 10*3/uL Normal <0.11 [facility] Comment on above: Order Comment: Speci men Type: BLOOD SPECIMENOrdering Facility: [facility] Address: [address] [place] [address] Performed By: #### 5 7021-8 ####[facility] LABORATORYCLIA [id number] [place] [address] [place] Basophils/100 WBC (Bld) 0.2 % Normal [facility] Comment on above: Order Comment: Speci men Type: BLOOD SPECIMENOrdering Facility: [facility] Address: [address] [place] [address] Performed By: #### 5 7021-8 ####[facility] LABORATORYCLIA [id number] [place] [address] [place] Differential cell count method Nom (Bld) Auto Normal [facility] Comment on above: Order Comment: Speci men Type: BLOOD SPECIMENOrdering Facility: [facility] Address: [address] [place] [address] Performed By: #### 5 7021-8 ####ADK[facility] LABORATORYCLIA [id number] [place] [address] [place] Eosinophils (Bld) [#/Vol] 0.36 10*3/uL Normal <0.46 [facility] Comment on above: Order Comment: Speci men Type: BLOOD SPECIMENOrdering Facility: [facility] Address: [address] [place] [address] Performed By: #### 5 7021-8 ####[facility] LABORATORYCLIA [id number] [address] [place] Eosinophils/100 WBC (Bld) 5.8 % Normal [facility] Comment on above: Order Comment: Speci men Type: BLOOD SPECIMENOrdering Facility: [facility] Address: [address] [place] [address] Performed By: #### 5 7021-8 ####[facility] LABORATORYCLIA [id number] [place] [address] [place] Erythrocyte distribution width (RBC) [Ratio] 13.2 % Normal 11.5-15.0 [facility] Comment on above: Order Comment: Speci men Type: BLOOD SPECIMENOrdering Facility: [facility] Address: [address] [place] [address] Performed By: #### 5 7021-8 ####[facility] LABORATORYCLIA [id number] [place] [address] [place] Hematocrit (Bld) [Volume fraction] 31.9 % Low 39.0-51.0 [facility] Comment on above: Order Comment: Speci men Type: BLOOD SPECIMENOrdering Facility: [facility] Address: [address] [place] [address] Performed By: #### 5 7021-8 ####[facility] LABORATORYCLIA [id number] [place] [address] [place] Hemoglobin (Bld) [Mass/Vol] 10.3 g/dL Low 13.0-17.0 [facility] Comment on above: Order Comment: Speci men Type: BLOOD SPECIMENOrdering Facility: [facility] Address: [address] [place] [address] Performed By: #### 5 7021-8 ####[facility] LABORATORYCLIA [id number] [place] [address] [place] Immature granulocytes (Bld) [#/Vol] 0.04 10*3/uL Normal <0.10 [facility] Comment on above: Order Comment: Speci men Type: BLOOD SPECIMENOrdering Facility: [facility] Address: [address] [place] [address] Performed By: #### 5 7021-8 ####[facility] LABORATORYCLIA [id number] [address] [place] Immature granulocytes/100 WBC (Bld) 0.6 % Normal [facility] Comment on above: Order Comment: Speci men Type: BLOOD SPECIMENOrdering Facility: [facility] Address: [address] [place] [address] Performed By: #### 5 7021-8 ####[facility] LABORATORYCLIA [id number] [place] [address] [place] Lymphocytes (Bld) [#/Vol] 1.09 10*3/uL Normal 1.00-4.00 [facility] Comment on above: Order Comment: Speci men Type: BLOOD SPECIMENOrdering Facility: [facility] Address: [address] [place] [address] Performed By: #### 5 7021-8 ####[facility] LABORATORYCLIA [id number] [address] Lymphocytes/100 WBC (Bld) 17.4 % Normal [facility] Comment on above: Order Comment: Speci men Type: BLOOD SPECIMENOrdering Facility: [facility] Address: [address] [place] [address] Performed By: #### 5 7021-8 ####[facility] LABORATORYCLIA [id number] [address] MCH (RBC) [Entitic mass] 28.9 pg Normal 26.0-34.0 [facility] Comment on above: Order Comment: Speci men Type: BLOOD SPECIMENOrdering Facility: [facility] Address: [address] [place] [address] Performed By: #### 5 7021-8 ####[facility] LABORATORYCLIA [id number] [address] MCHC (RBC) [Mass/Vol] 32.3 g/dL Normal 30.5-36.0 [facility] Comment on above: Order Comment: Speci men Type: BLOOD SPECIMENOrdering Facility: [facility] Address: [address] [place] [address] Performed By: #### 5 7021-8 ####[facility] LABORATORYCLIA [id number] [address] MCV (RBC) [Entitic vol] 89.4 fL Normal 80.0-100.0 [facility] Comment on above: Order Comment: Speci men Type: BLOOD SPECIMENOrdering Facility: [facility] Address: [address] [place] [address] Performed By: #### 5 7021-8 ####[facility] LABORATORYCLIA [id number] [address] Monocytes (Bld) [#/Vol] 0.61 10*3/uL Normal <0.87 [facility] Comment on above: Order Comment: Speci men Type: BLOOD SPECIMENOrdering Facility: [facility] Address: [address] [place] [address] Performed By: #### 5 7021-8 ####ADK[facility] LABORATORYCLIA [id number] [place] [address] [place] Monocytes/100 WBC (Bld) 9.7 % Normal [facility] Comment on above: Order Comment: Speci men Type: BLOOD SPECIMENOrdering Facility: [facility] Address: [address] [place] [address] Performed By: #### 5 7021-8 ####[facility] LABORATORYCLIA [id number] [place] [address] [place] Neutrophils (Bld) [#/Vol] 4.15 10*3/uL Normal 1.45-7.50 [facility] Comment on above: Order Comment: Speci men Type: BLOOD SPECIMENOrdering Facility: [facility] Address: [address] [place] [address] Performed By: #### 5 7021-8 ####[facility] LABORATORYCLIA [id number] [place] [address] [place] Neutrophils/100 WBC (Bld) 66.3 % Normal [facility] Comment on above: Order Comment: Speci men Type: BLOOD SPECIMENOrdering Facility: [facility] Address: [address] [place] [address] Performed By: #### 5 7021-8 ####[facility] LABORATORYCLIA [id number] [place] [address] [place] Nucleated RBC (Bld) [#/Vol] 10*3/uL Normal <0.01 [facility] Comment on above: Order Comment: Speci men Type: BLOOD SPECIMENOrdering Facility: [facility] Address: [address] [place] [address] Performed By: #### 5 7021-8 ####[facility] LABORATORYCLIA [id number] [place] [address] [place] Nucleated RBC/100 WBC (Bld) [Ratio] 0.0 /100 WBC Normal [facility] Comment on above: Order Comment: Speci men Type: BLOOD SPECIMENOrdering Facility: [facility] Address: [address] [place] [address] Performed By: #### 5 7021-8 ####[facility] LABORATORYCLIA [id number] [place] [id number] [place] Platelet mean volume (Bld) [Entitic vol] 9.5 fL Normal 9.0-12.7 [facility] Comment on above: Order Comment: Speci men Type: BLOOD SPECIMENOrdering Facility: [facility] Address: [facility] [place] [address] Performed By: #### 5 7021-8 ####[facility] LABORATORYCLIA [id number] [place] [address] [place] Platelets (Bld) [#/Vol] 218 10*3/uL Normal 150-400 [facility] Comment on above: Order Comment: Speci men Type: BLOOD SPECIMENOrdering Facility: [facility] Address: [facility] [place] [address] Performed By: #### 5 7021-8 ####[facility] LABORATORYCLIA [id number] [place] [address] [place] RBC (Bld) [#/Vol] 3.57 10*6/uL Low 4.20-6.00 [facility] Comment on above: Order Comment: Speci men Type: BLOOD SPECIMENOrdering Facility: [facility] Address: [facility] [place] [address] Performed By: #### 5 7021-8 ####[facility] LABORATORYCLIA [id number] [place] [address] [place] WBC (Bld) [#/Vol] 6.26 10*3/uL Normal 3.70-11.00 [facility] Comment on above: Order Comment: Speci men Type: BLOOD SPECIMENOrdering Facility: [facility] Address: [facility] [place] [address] Performed By: #### 5 7021-8 ####ADK[facility] LABORATORYCLIA [id number] [place] [id number] [facility] [place] CONSULT PROGon 07-17-2024 CONSULT PROG Normal [facility] Comprehensive metabolic 2000 panelon 07-17-2024 Albumin [Mass/Vol] 3.5 g/dL Low 3.9-4.9 [facility] Comment on above: Order Comment: Speci men Type: BLOOD SPECIMENOrdering Facility: [facility] Address: [address] [place] [address] Performed By: #### 2 4323-8 ####[facility] LABORATORYCLIA [id number] [place] [address] [place] ALP [Catalytic activity/Vol] 114 U/L High 38-113 [facility] Comment on above: Order Comment: Speci men Type: BLOOD SPECIMENOrdering Facility: [facility] Address: [address] [place] [address] Performed By: #### 2 4323-8 ####ADK[facility] LABORATORYCLIA [id number] [place] [address] [place] ALT [Catalytic activity/Vol] 10 U/L Normal 10-54 [facility] Comment on above: Order Comment: Speci men Type: BLOOD SPECIMENOrdering Facility: [facility] Address: [address] [place] [address] Performed By: #### 2 4323-8 ####AD[facility] LABORATORYCLIA [id number] [place] [address] [place] Anion gap [Moles/Vol] 11 mmol/L Normal 8-15 [facility] Comment on above: Order Comment: Speci men Type: BLOOD SPECIMENOrdering Facility: [facility] Address: [address] [place] [address] Performed By: #### 2 4323-8 ####[facility] LABORATORYCLIA [id number] [address] [place] AST [Catalytic activity/Vol] 13 U/L Low 14-40 [facility] Comment on above: Order Comment: Speci men Type: BLOOD SPECIMENOrdering Facility: [facility] Address: [address] [place] [address] Performed By: #### 2 4323-8 ####ADK[facility] LABORATORYCLIA [id number] [place] [address] [place] Bilirubin [Mass/Vol] 0.3 mg/dL Normal 0.2-1.3 [facility] Comment on above: Order Comment: Speci men Type: BLOOD SPECIMENOrdering Facility: [facility] Address: [address] [place] [address] Performed By: #### 2 4323-8 ####[facility] LABORATORYCLIA [id number] [place] [address] [place] Calcium [Mass/Vol] 9.7 mg/dL Normal 8.5-10.2 [facility] Comment on above: Order Comment: Speci men Type: BLOOD SPECIMENOrdering Facility: [facility] Address: [address] [place] [address] Performed By: #### 2 4323-8 ####ADK[facility] LABORATORYCLIA [id number] [place] [address] [place] Chloride [Moles/Vol] 112 mmol/L High 98-107 [facility] Comment on above: Order Comment: Speci men Type: BLOOD SPECIMENOrdering Facility: [facility] Address: [address] [place] [address] Performed By: #### 2 4323-8 ####[facility] LABORATORYCLIA [id number] [place] [address] [place] CO2 [Moles/Vol] 22 mmol/L Normal 22-30 [facility] Comment on above: Order Comment: Speci men Type: BLOOD SPECIMENOrdering Facility: [facility] Address: [address] [place] [address] Performed By: #### 2 4323-8 ####ADK[facility] LABORATORYCLIA [id number] [place] [address] [place] Creatinine [Mass/Vol] 5.50 mg/dL High 0.73-1.22 [facility] Comment on above: Order Comment: Speci men Type: BLOOD SPECIMENOrdering Facility: [facility] Address: [address] [place] [address] Performed By: #### 2 4323-8 ####ADK[facility] LABORATORYCLIA [id number] [place] [address] [place] Creatinine and Glomerular filtration rate.predicted panel (S/P/Bld) 11 mL/min/1.73m??? Low >=60 [facility] Comment on above: Order Comment: Luz vaughan Type: BLOOD SPECIMENOrdering Facility: [facility] Address: [address] [place] [address] Result Comment: Breanne mated Glomerular Filtration Rate [...] actual GFR. Performed By: #### 2 4323-8 ####[facility] LABORATORYCLIA [id number] [place] [address] [place] Glucose [Mass/Vol] 84 mg/dL Normal 74-99 [facility] Comment on above: Order Comment: Luz vaughan Type: BLOOD SPECIMENOrdering Facility: [facility] Address: [address] [place] [address] Result Comment: The [place] [employer] (ADA) provides guidance for cutoff [...] Standards of Medical Care in Diabetes 2016, [place] [employer]. Diabetes Care. 2016.39(Suppl 1). Performed By: #### 2 4323-8 ####[facility] LABORATORYCLIA [id number] [place] [id number] [place] Potassium [Moles/Vol] 5.2 mmol/L High 3.7-5.1 [facility] Comment on above: Order Comment: Luz vaughan Type: BLOOD SPECIMENOrdering Facility: [facility] Address: [address] [place] [id number] Performed By: #### 2 4323-8 ####ADK[facility] LABORATORYCLIA [id number] [place] [address] [place] Protein [Mass/Vol] 6.3 g/dL Normal 6.3-8.0 [facility] Comment on above: Order Comment: Speci men Type: BLOOD SPECIMENOrdering Facility: [facility] Address: [address] [place] [address] Performed By: #### 2 4323-8 ####ADK[facility] LABORATORYCLIA [id number] [place] [address] [place] Sodium [Moles/Vol] 145 mmol/L High 136-144 [facility] Comment on above: Order Comment: Speci men Type: BLOOD SPECIMENOrdering Facility: [facility] Address: [address] [place] [address] Performed By: #### 2 4323-8 ####ADK[facility] LABORATORYCLIA [id number] [place] [address] [place] Urea nitrogen [Mass/Vol] 82 mg/dL High 9-24 [facility] Comment on above: Order Comment: Speci men Type: BLOOD SPECIMENOrdering Facility: [facility] Address: [address] [place] [address] Performed By: #### 2 4323-8 ####ADK[facility] LABORATORYCLIA [id number] [place] [address] [place] NURSING PROGon 07-17-2024 NURSING PROG [facility] NUTRITIONon 07-17-2024 NUTRITION Normal [facility] CASE MANAGEMon 07-16-2024 CASE MANAGEM [facility] CBC W Auto Differential pane l (Bld)on 07-16-2024 Basophils (Bld) [#/Vol] 10*3/uL Normal <0.11 [facility] Comment on above: Order Comment: Speci men Type: BLOOD SPECIMENOrdering Facility: [facility] Address: [address] [place] [address] Performed By: #### 5 7021-8 ####ADK[facility] LABORATORYCLIA [id number] [place] [address] [place] Basophils/100 WBC (Bld) 0.1 % [facility] Comment on above: Order Comment: Speci men Type: BLOOD SPECIMENOrdering Facility: [facility] Address: [address] [place] [address] Performed By: #### 5 7021-8 ####ADK[facility] LABORATORYCLIA [id number] [place] [address] [place] Differential cell count method Nom (Bld) Auto Normal [facility] Comment on above: Order Comment: Speci men Type: BLOOD SPECIMENOrdering Facility: [facility] Address: [address] [place] [address] Performed By: #### 5 7021-8 ####ADK[facility] LABORATORYCLIA [id number] [place] [address] [place] Eosinophils (Bld) [#/Vol] 0.21 10*3/uL Normal <0.46 [facility] Comment on above: Order Comment: Speci men Type: BLOOD SPECIMENOrdering Facility: [facility] Address: [address] [place] [address] Performed By: #### 5 7021-8 ####ADK[facility] LABORATORYCLIA [id number] [place] [address] [place] Eosinophils/100 WBC (Bld) 3.1 % Normal [facility] Comment on above: Order Comment: Speci men Type: BLOOD SPECIMENOrdering Facility: [facility] Address: [address] [place] [address] Performed By: #### 5 7021-8 ####ADK[facility] LABORATORYCLIA [id number] [place] [address] [place] Erythrocyte distribution width (RBC) [Ratio] 13.3 % Normal 11.5-15.0 [facility] Comment on above: Order Comment: Speci men Type: BLOOD SPECIMENOrdering Facility: [facility] Address: [address] [place] [address] Performed By: #### 5 7021-8 ####ADK[facility] LABORATORYCLIA [id number] [place] [address] [place] Hematocrit (Bld) [Volume fraction] 29.1 % Low 39.0-51.0 [facility] Comment on above: Order Comment: Speci men Type: BLOOD SPECIMENOrdering Facility: [facility] Address: [address] [place] [address] Performed By: #### 5 7021-8 ####ADKINS LABORATORYCLIA [id number] [place] [address] [place] Hemoglobin (Bld) [Mass/Vol] 9.2 g/dL Low 13.0-17.0 [facility] Comment on above: Order Comment: Speci men Type: BLOOD SPECIMENOrdering Facility: [facility] Address: [address] [place] [address] Performed By: #### 5 7021-8 ####ADKINS LABORATORYCLIA [id number] [place] [address] [place] Immature granulocytes (Bld) [#/Vol] 0.04 10*3/uL Normal <0.10 [facility] Comment on above: Order Comment: Speci men Type: BLOOD SPECIMENOrdering Facility: [facility] Address: [address] [place] [address] Performed By: #### 5 7021-8 ####ADKINS LABORATORYCLIA [id number] [place] [address] [place] Immature granulocytes/100 WBC (Bld) 0.6 % Normal [facility] Comment on above: Order Comment: Speci men Type: BLOOD SPECIMENOrdering Facility: [facility] Address: [address] [place] [address] Performed By: #### 5 7021-8 ####ADKINS LABORATORYCLIA [id number] [place] [address] [place] Lymphocytes (Bld) [#/Vol] 0.97 10*3/uL Low 1.00-4.00 [facility] Comment on above: Order Comment: Speci men Type: BLOOD SPECIMENOrdering Facility: [facility] Address: [address] [place] [address] Performed By: #### 5 7021-8 ####ADKINS LABORATORYCLIA [id number] [place] [address] [place] [facility] [place] Lymphocytes/100 WBC (Bld) 14.4 % Normal [facility] Comment on above: Order Comment: Speci men Type: BLOOD SPECIMENOrdering Facility: [facility] Address: [address] [place] [address] Performed By: #### 5 7021-8 ####ADK[facility] LABORATORYCLIA [id number] [address] [place] [facility] MCH (RBC) [Entitic mass] 28.4 pg Normal 26.0-34.0 [facility] Comment on above: Order Comment: Speci men Type: BLOOD SPECIMENOrdering Facility: [facility] Address: [address] [place] [address] Performed By: #### 5 7021-8 ####ADK[facility] LABORATORYCLIA [id number] [address] MCHC (RBC) [Mass/Vol] 31.6 g/dL Normal 30.5-36.0 [facility] Comment on above: Order Comment: Speci men Type: BLOOD SPECIMENOrdering Facility: [facility] Address: [address] [place] [address] Performed By: #### 5 7021-8 ####ADK[facility] LABORATORYCLIA [id number] [address] MCV (RBC) [Entitic vol] 89.8 fL Normal 80.0-100.0 [facility] Comment on above: Order Comment: Speci men Type: BLOOD SPECIMENOrdering Facility: [facility] Address: [address] [place] [address] Performed By: #### 5 7021-8 ####ADK[facility] LABORATORYCLIA [id number] [address] Monocytes (Bld) [#/Vol] 0.81 10*3/uL Normal <0.87 [facility] Comment on above: Order Comment: Speci men Type: BLOOD SPECIMENOrdering Facility: [facility] Address: [address] [place] [address] Performed By: #### 5 7021-8 ####ADK[facility] LABORATORYCLIA [id number] [address] Monocytes/100 WBC (Bld) 12.0 % Normal [facility] Comment on above: Order Comment: Speci men Type: BLOOD SPECIMENOrdering Facility: [facility] Address: [facility] [place] [address] Performed By: #### 5 7021-8 ####ADKINS LABORATORYCLIA [id number] [place] [address] [place] Neutrophils (Bld) [#/Vol] 4.69 10*3/uL Normal 1.45-7.50 [facility] Comment on above: Order Comment: Speci men Type: BLOOD SPECIMENOrdering Facility: [facility] Address: [address] [place] [address] Performed By: #### 5 7021-8 ####ADK[facility] LABORATORYCLIA [id number] [place] [address] [place] Neutrophils/100 WBC (Bld) 69.8 % Normal [facility] Comment on above: Order Comment: Speci men Type: BLOOD SPECIMENOrdering Facility: [facility] Address: [address] [place] [address] Performed By: #### 5 7021-8 ####ADKINS LABORATORYCLIA [id number] [place] [address] [place] Nucleated RBC (Bld) [#/Vol] 10*3/uL Normal <0.01 [facility] Comment on above: Order Comment: Speci men Type: BLOOD SPECIMENOrdering Facility: [facility] Address: [address] [place] [address] Performed By: #### 5 7021-8 ####ADKINS LABORATORYCLIA [id number] [place] [address] [place] Nucleated RBC/100 WBC (Bld) [Ratio] 0.0 /100 WBC Normal [facility] Comment on above: Order Comment: Speci men Type: BLOOD SPECIMENOrdering Facility: [facility] Address: [address] [place] [address] Performed By: #### 5 7021-8 ####ADKINS LABORATORYCLIA [id number] [place] [address] [place] Platelet mean volume (Bld) [Entitic vol] 9.2 fL Normal 9.0-12.7 [facility] Comment on above: Order Comment: Speci men Type: BLOOD SPECIMENOrdering Facility: [facility] Address: [address] [place] [address] Performed By: #### 5 7021-8 ####ADKINS LABORATORYCLIA [id number] [place] [address] [facility] [place] Platelets (Bld) [#/Vol] 188 10*3/uL Normal 150-400 [facility] Comment on above: Order Comment: Speci men Type: BLOOD SPECIMENOrdering Facility: [facility] Address: [address] [place], [place] [address] [address] Performed By: #### 5 7021-8 ####LAWTON LABORATORYCLIA [id number] [place] [address] [place] RBC (Bld) [#/Vol] 3.24 10*6/uL Low 4.20-6.00 [facility] Comment on above: Order Comment: Speci men Type: BLOOD SPECIMENOrdering Facility: [facility] Address: [address] [place] [address] [place] [address] Performed By: #### 5 7021-8 ####LAWTON LABORATORYCLIA [id number] [address] [place] WBC (Bld) [#/Vol] 6.73 10*3/uL Normal 3.70-11.00 [facility] Comment on above: Order Comment: Speci men Type: BLOOD SPECIMENOrdering Facility: [facility] Address: [address] [place], [place] [address] [address] Performed By: #### 5 7021-8 ####LAWTON LABORATORYCLIA [id number] [address] [place] CNCOon 07-16-2024 CNCO Letter Text [facility] CNDSon 07-16-2024 CNDS [facility] CNPNon 07-16-2024 CNPN Telephone (HCSIND) -- NADERJOSÉ MANUEL BOND ([id number]) 1960 [facility] Date Time Provider Department 07/16/24 CLAUDIA CHOW During your visit today, we recorded the following information about you: Wilton Maribeth 07/17/2024 8:44 AM Signed Date/Time: 07/17/2024 8:43 AM Spoke with Janell @ phone #: [phone] - Preferred # for contact: [phone] Have you received help from a home care company in the last 60 days? no Are you agreeable to [facility] services? yes What address will we be seeing you at? [address] [address] Do you have any upcoming appointments or [...] are managed by this patient by: PATIENT Nusrat Lewis, OA 11/08/[address] Scott: "Patient [...] HTN (hy (more content not included)... Normal [facility] CONSULT PROGon 07-16-2024 CONSULT PROG Normal [facility] Comprehensive metabolic 2000 panelon 07-16-2024 Albumin [Mass/Vol] 3.2 g/dL Low 3.9-4.9 [facility] Comment on above: Order Comment: Speci men Type: BLOOD SPECIMENOrdering Facility: [facility] Address: [address] [place] [address] Performed By: #### 2 4323-8 ####ADKINS LABORATORYCLIA [id number] [address] OF [facility] ALP [Catalytic activity/Vol] 93 U/L Normal 38-113 [facility] Comment on above: Order Comment: Speci men Type: BLOOD SPECIMENOrdering Facility: [facility] Address: [address] [place] [address] Performed By: #### 2 4323-8 ####ADKINS LABORATORYCLIA [id number] [address] ALT [Catalytic activity/Vol] 10 U/L Normal 10-54 [facility] Comment on above: Order Comment: Speci men Type: BLOOD SPECIMENOrdering Facility: [facility] Address: [address] [place] [address] Performed By: #### 2 4323-8 ####ADKINS LABORATORYCLIA [id number] [place] [address] [place] Anion gap [Moles/Vol] 11 mmol/L Normal 8-15 [facility] Comment on above: Order Comment: Speci men Type: BLOOD SPECIMENOrdering Facility: [facility] Address: [address] [place] [address] Performed By: #### 2 4323-8 ####ADKINS LABORATORYCLIA [id number] [address] AST [Catalytic activity/Vol] 10 U/L Low 14-40 [facility] Comment on above: Order Comment: Speci men Type: BLOOD SPECIMENOrdering Facility: [facility] Address: [address] [place] [address] Performed By: #### 2 4323-8 ####ADKINS LABORATORYCLIA [id number] [place] [address] [place] Bilirubin [Mass/Vol] 0.2 mg/dL Normal 0.2-1.3 [facility] Comment on above: Order Comment: Speci men Type: BLOOD SPECIMENOrdering Facility: [facility] Address: [address] [place] [address] Performed By: #### 2 4323-8 ####ADKINS LABORATORYCLIA [id number] [place] [address] [place] Calcium [Mass/Vol] 9.2 mg/dL Normal 8.5-10.2 [facility] Comment on above: Order Comment: Speci men Type: BLOOD SPECIMENOrdering Facility: [facility] Address: [address] [place] [address] Performed By: #### 2 4323-8 ####ADKINS LABORATORYCLIA [id number] [place] [address] [place] Chloride [Moles/Vol] 109 mmol/L High 98-107 [facility] Comment on above: Order Comment: Speci men Type: BLOOD SPECIMENOrdering Facility: [facility] Address: [address] [place] [address] Performed By: #### 2 4323-8 ####ADKINS LABORATORYCLIA [id number] [place] [address] [place] CO2 [Moles/Vol] 24 mmol/L Normal 22-30 [facility] Comment on above: Order Comment: Speci men Type: BLOOD SPECIMENOrdering Facility: [facility] Address: [address] [place] [address] Performed By: #### 2 4323-8 ####ADKINS LABORATORYCLIA [id number] [place] [address] [place] Creatinine [Mass/Vol] 5.71 mg/dL High 0.73-1.22 [facility] Comment on above: Order Comment: Speci men Type: BLOOD SPECIMENOrdering Facility: [facility] Address: [address] [place] [address] Performed By: #### 2 4323-8 ####ADKINS LABORATORYCLIA [id number] [place] [address] [place] Creatinine and Glomerular filtration rate.predicted panel (S/P/Bld) 10 mL/min/1.73m??? Low >=60 [facility] Comment on above: Order Comment: Luz vaughan Type: BLOOD SPECIMENOrdering Facility: [facility] Address: [address] [place] [address] Result Comment: Breanne mated Glomerular Filtration Rate [...] actual GFR. Performed By: #### 2 4323-8 ####LAWTON LABORATORYCLIA [id number] [place] [address] [place] Glucose [Mass/Vol] 115 mg/dL High 74-99 [facility] Comment on above: Order Comment: Luz vaughan Type: BLOOD SPECIMENOrdering Facility: [facility] Address: [address] [place] [address] Result Comment: The [place] [employer] (ADA) provides guidance for cutoff [...] Standards of Medical Care in Diabetes 2016, [place] [employer]. Diabetes Care. 2016.39(Suppl 1). Performed By: #### 2 4323-8 ####LAWTON LABORATORYCLIA [id number] [place] [id number] [place] Potassium [Moles/Vol] 5.8 mmol/L High 3.7-5.1 [facility] Comment on above: Order Comment: Luz vaughan Type: BLOOD SPECIMENOrdering Facility: [facility] Address: [address] [place] [id number] Performed By: #### 2 4323-8 ####LAWTON LABORATORYCLIA [id number] [place] [address] [place] Protein [Mass/Vol] 5.7 g/dL Low 6.3-8.0 [facility] Comment on above: Order Comment: Speci men Type: BLOOD SPECIMENOrdering Facility: [facility] Address: [address] [place] [address] Performed By: #### 2 4323-8 ####ADKINS LABORATORYCLIA [id number] [place] [address] [place] Sodium [Moles/Vol] 144 mmol/L Normal 136-144 [facility] Comment on above: Order Comment: Speci men Type: BLOOD SPECIMENOrdering Facility: [facility] Address: [address] [place] [address] Performed By: #### 2 4323-8 ####ADKINS LABORATORYCLIA [id number] [place] [address] [place] Urea nitrogen [Mass/Vol] 82 mg/dL High 9-24 [facility] Comment on above: Order Comment: Speci men Type: BLOOD SPECIMENOrdering Facility: [facility] Address: [address] [place] [address] Performed By: #### 2 4323-8 ####ADKINS LABORATORYCLIA [id number] [place] [address] [place] THERAPY NTon 07-16-2024 THERAPY NT [facility] CASE MANAGEMon 07-15-2024 CASE MANAGEM [facility] CBC W Auto Differential pane l (Bld)on 07-15-2024 Basophils (Bld) [#/Vol] 10*3/uL Normal <0.11 [facility] Comment on above: Order Comment: Speci men Type: BLOOD SPECIMENOrdering Facility: [facility] Address: [address] [place] [address] Performed By: #### 5 7021-8 ####ADKINS LABORATORYCLIA [id number] [address] [place] Basophils/100 WBC (Bld) 0.0 % Normal [facility] Comment on above: Order Comment: Speci men Type: BLOOD SPECIMENOrdering Facility: [facility] Address: [address] [place] [address] Performed By: #### 5 7021-8 ####ADKINS LABORATORYCLIA [id number] [address] [place] Differential cell count method Nom (Bld) Auto Normal [facility] Comment on above: Order Comment: Speci men Type: BLOOD SPECIMENOrdering Facility: [facility] Address: [address] [place] [address] Performed By: #### 5 7021-8 ####ADKINS LABORATORYCLIA [id number] [place] [address] [place] Eosinophils (Bld) [#/Vol] 0.10 10*3/uL Normal <0.46 [facility] Comment on above: Order Comment: Speci men Type: BLOOD SPECIMENOrdering Facility: [facility] Address: [address] [place] [address] Performed By: #### 5 7021-8 ####ADKINS LABORATORYCLIA [id number] [place] [address] [place] Eosinophils/100 WBC (Bld) 1.7 % Normal [facility] Comment on above: Order Comment: Speci men Type: BLOOD SPECIMENOrdering Facility: [facility] Address: [address] [place] [address] Performed By: #### 5 7021-8 ####ADKINS LABORATORYCLIA [id number] [address] [place] Erythrocyte distribution width (RBC) [Ratio] 13.5 % Normal 11.5-15.0 [facility] Comment on above: Order Comment: Speci men Type: BLOOD SPECIMENOrdering Facility: [facility] Address: [address] [place] [address] Performed By: #### 5 7021-8 ####ADKINS LABORATORYCLIA [id number] [address] [place] Hematocrit (Bld) [Volume fraction] 30.0 % Low 39.0-51.0 [facility] Comment on above: Order Comment: Speci men Type: BLOOD SPECIMENOrdering Facility: [facility] Address: [address] [place] [address] Performed By: #### 5 7021-8 ####ADKINS LABORATORYCLIA [id number] [place] [address] [place] Hemoglobin (Bld) [Mass/Vol] 9.6 g/dL Low 13.0-17.0 [facility] Comment on above: Order Comment: Speci men Type: BLOOD SPECIMENOrdering Facility: [facility] Address: [address] [place] [address] Performed By: #### 5 7021-8 ####ADKINS LABORATORYCLIA [id number] [place] [address] [place] Immature granulocytes (Bld) [#/Vol] 0.03 10*3/uL Normal <0.10 [facility] Comment on above: Order Comment: Speci men Type: BLOOD SPECIMENOrdering Facility: [facility] Address: [address] [place] [address] Performed By: #### 5 7021-8 ####ADKINS LABORATORYCLIA [id number] [place] [address] [place] Immature granulocytes/100 WBC (Bld) 0.5 % Normal [facility] Comment on above: Order Comment: Speci men Type: BLOOD SPECIMENOrdering Facility: [facility] Address: [address] [place] [address] Performed By: #### 5 7021-8 ####ADKINS LABORATORYCLIA [id number] [place] [address] [place] Lymphocytes (Bld) [#/Vol] 1.09 10*3/uL Normal 1.00-4.00 [facility] Comment on above: Order Comment: Speci men Type: BLOOD SPECIMENOrdering Facility: [facility] Address: [address] [place] [address] Performed By: #### 5 7021-8 ####ADKINS LABORATORYCLIA [id number] [address] [place] Lymphocytes/100 WBC (Bld) 19.1 % Normal [facility] Comment on above: Order Comment: Speci men Type: BLOOD SPECIMENOrdering Facility: [facility] Address: [address] [place] [address] Performed By: #### 5 7021-8 ####ADKINS LABORATORYCLIA [id number] [address] MCH (RBC) [Entitic mass] 28.8 pg Normal 26.0-34.0 [facility] Comment on above: Order Comment: Speci men Type: BLOOD SPECIMENOrdering Facility: [facility] Address: [address] [place] [address] Performed By: #### 5 7021-8 ####ADKINS LABORATORYCLIA [id number] [address] [place] MCHC (RBC) [Mass/Vol] 32.0 g/dL Normal 30.5-36.0 [facility] Comment on above: Order Comment: Speci men Type: BLOOD SPECIMENOrdering Facility: [facility] Address: [address] [place] [address] Performed By: #### 5 7021-8 ####ADKINS LABORATORYCLIA [id number] [address] MCV (RBC) [Entitic vol] 90.1 fL Normal 80.0-100.0 [facility] Comment on above: Order Comment: Speci men Type: BLOOD SPECIMENOrdering Facility: [facility] Address: [address] [place] [address] Performed By: #### 5 7021-8 ####ADKINS LABORATORYCLIA [id number] [address] [place] Monocytes (Bld) [#/Vol] 0.67 10*3/uL Normal <0.87 [facility] Comment on above: Order Comment: Speci men Type: BLOOD SPECIMENOrdering Facility: [facility] Address: [address] [place] [address] Performed By: #### 5 7021-8 ####ADKINS LABORATORYCLIA [id number] [address] Monocytes/100 WBC (Bld) 11.7 % Normal [facility] Comment on above: Order Comment: Speci men Type: BLOOD SPECIMENOrdering Facility: [facility] Address: [address] [place] [address] Performed By: #### 5 7021-8 ####ADKINS LABORATORYCLIA [id number] [place] [address] [place] Neutrophils (Bld) [#/Vol] 3.83 10*3/uL Normal 1.45-7.50 [facility] Comment on above: Order Comment: Speci men Type: BLOOD SPECIMENOrdering Facility: [facility] Address: [address] [place] [address] Performed By: #### 5 7021-8 ####ADKINS LABORATORYCLIA [id number] [place] [address] [place] Neutrophils/100 WBC (Bld) 67.0 % Normal [facility] Comment on above: Order Comment: Speci men Type: BLOOD SPECIMENOrdering Facility: [facility] Address: [address] [place] [address] Performed By: #### 5 7021-8 ####ADKINS LABORATORYCLIA [id number] [place] [address] [place] Nucleated RBC (Bld) [#/Vol] 10*3/uL Normal <0.01 [facility] Comment on above: Order Comment: Speci men Type: BLOOD SPECIMENOrdering Facility: [facility] Address: [address] [place] [address] Performed By: #### 5 7021-8 ####ADKINS LABORATORYCLIA [id number] [place] [address] [place] Nucleated RBC/100 WBC (Bld) [Ratio] 0.0 /100 WBC Normal [facility] Comment on above: Order Comment: Speci men Type: BLOOD SPECIMENOrdering Facility: [facility] Address: [address] [place] [address] Performed By: #### 5 7021-8 ####ADKINS LABORATORYCLIA [id number] [place] [address] [place] Platelet mean volume (Bld) [Entitic vol] 9.5 fL Normal 9.0-12.7 [facility] Comment on above: Order Comment: Speci men Type: BLOOD SPECIMENOrdering Facility: [facility] Address: [address] [place] [address] Performed By: #### 5 7021-8 ####ADKINS LABORATORYCLIA [id number] [address] Platelets (Bld) [#/Vol] 214 10*3/uL Normal 150-400 [facility] Comment on above: Order Comment: Speci men Type: BLOOD SPECIMENOrdering Facility: [facility] Address: [address] [place] [address] Performed By: #### 5 7021-8 ####ADKINS LABORATORYCLIA [id number] [place] [address] [place] RBC (Bld) [#/Vol] 3.33 10*6/uL Low 4.20-6.00 [facility] Comment on above: Order Comment: Speci men Type: BLOOD SPECIMENOrdering Facility: [facility] Address: [address] [place] [address] Performed By: #### 5 7021-8 ####ADKINS LABORATORYCLIA [id number] [address] WBC (Bld) [#/Vol] 5.72 10*3/uL Normal 3.70-11.00 [facility] Comment on above: Order Comment: Speci men Type: BLOOD SPECIMENOrdering Facility: [facility] Address: [address] [place] [address] Performed By: #### 5 7021-8 ####ADKINS LABORATORYCLIA [id number] [address] CONSULT PROGon 07-15-2024 CONSULT PROG Normal [facility] Magnesium SerPl-mCncon 07-15 Magnesium [Mass/Vol] 2.2 mg/dL Normal 1.7-2.3 [facility] Comment on above: Order Comment: Speci men Type: BLOOD SPECIMENOrdering Facility: [facility] Address: [address] [place] [address] Performed By: #### 2 4362-6, 60629-6 ####ADKINS LABORATORYCLIA [id number] [place] [address] [place] Renal function 2000 panelon 07-15-2024 Albumin [Mass/Vol] 3.1 g/dL Low 3.9-4.9 [facility] Comment on above: Order Comment: Speci men Type: BLOOD SPECIMENOrdering Facility: [facility] Address: [address] [place] [address] Performed By: #### 2 4362-6, ####ADKINS LABORATORYCLIA [id number] [place] [id number] [place] Anion gap [Moles/Vol] 13 mmol/L Normal 8-15 [facility] Comment on above: Order Comment: Speci men Type: BLOOD SPECIMENOrdering Facility: [facility] Address: [address] [place] [address] Performed By: #### 2 4362-6, ####ADKINS LABORATORYCLIA [id number] [place] [address] [place] Calcium [Mass/Vol] 8.8 mg/dL Normal 8.5-10.2 [facility] Comment on above: Order Comment: Speci men Type: BLOOD SPECIMENOrdering Facility: [facility] Address: [address] [place] [address] Performed By: #### 2 4362-6, ####ADKINS LABORATORYCLIA [id number] [place] [id number] [place] Chloride [Moles/Vol] 108 mmol/L High 98-107 [facility] Comment on above: Order Comment: Speci men Type: BLOOD SPECIMENOrdering Facility: [facility] Address: [address] [place] [address] Performed By: #### 2 4362-6, ####ADKINS LABORATORYCLIA [id number] [place] [id number] [place] CO2 [Moles/Vol] 24 mmol/L Normal 22-30 [facility] Comment on above: Order Comment: Speci men Type: BLOOD SPECIMENOrdering Facility: [facility] Address: [address] [place] [address] Performed By: #### 2 4362-6, ####LAWTON LABORATORYCLIA [id number] [place] [address] [place] Creatinine [Mass/Vol] 5.17 mg/dL High 0.73-1.22 [facility] Comment on above: Order Comment: Luz vaughan Type: BLOOD SPECIMENOrdering Facility: [facility] Address: [address] [place] [address] Performed By: #### 2 4362-6, ####ADKINS LABORATORYCLIA [id number] [place] [address] [place] Creatinine and Glomerular filtration rate.predicted panel (S/P/Bld) 12 mL/min/1.73m??? Low >=60 [facility] Comment on above: Order Comment: Brooks clement Type: BLOOD SPECIMENOrdering Facility: [facility] Address: [address] [place] [address] Result Comment: Breanne mated Glomerular Filtration Rate [...] actual GFR. Performed By: #### 2 4362-6, ####LAWTON LABORATORYCLIA [id number] [place] [id number] [place] Glucose [Mass/Vol] 160 mg/dL High 74-99 [facility] Comment on above: Order Comment: Luz vaughan Type: BLOOD SPECIMENOrdering Facility: [facility] Address: [address] [place] [address] Result Comment: The [place] [employer] (ADA) provides guidance for cutoff [...] Standards of Medical Care in Diabetes 2016, [place] [employer]. Diabetes Care. 2016.39(Suppl 1). Performed By: #### 2 4362-6, ####ADKINS LABORATORYCLIA [id number] [place] [address] [place] Phosphate [Mass/Vol] 6.6 mg/dL High 2.7-4.8 [facility] Comment on above: Order Comment: Luz vaughan Type: BLOOD SPECIMENOrdering Facility: [facility] Address: [address] [place] [address] Performed By: #### 2 43605-09, ####ADKINS LABORATORYCLIA [id number] [place] [address] [place] Potassium [Moles/Vol] 5.3 mmol/L High 3.7-5.1 [facility] Comment on above: Order Comment: Luz vaughan Type: BLOOD SPECIMENOrdering Facility: [facility] Address: [address] [place] [address] Performed By: #### 2 43605-09, ####ADKINS LABORATORYCLIA [id number] [place] [address] [place] Sodium [Moles/Vol] 145 mmol/L High 136-144 [facility] Comment on above: Order Comment: Luz vaughan Type: BLOOD SPECIMENOrdering Facility: [facility] Address: [address] [place] [address] Performed By: #### 2 4366, ####ADKINS LABORATORYCLIA [id number] [place] [id number] [place] Urea nitrogen [Mass/Vol] 79 mg/dL High 9-24 [facility] Comment on above: Order Comment: Luz vaughan Type: BLOOD SPECIMENOrdering Facility: [facility] Address: [address] [place] [address] Performed By: #### 2 43605-09, ####ADKINS LABORATORYCLIA [id number] [place] [address] [facility] ALLIED HEALTHon 07-14-2024 ALLIED HEALTH Normal [facility] Albumin SerPl-mCncon 025 Albumin [Mass/Vol] 3.0 g/dL Low 3.9-4.9 [facility] Comment on above: Order Comment: Speci men Type: BLOOD SPECIMENOrdering Facility: [facility] Address: [address] [place] [address] Performed By: #### 1 751-7, 3040-3, 28015-7, 61138-1, 2777-1, 63636-3 ####LAWTON LABORATORYCLIA [id number] [place] [id number] [facility] Basic metabolic 2000 panelon 07-14-2024 Anion gap [Moles/Vol] 13 mmol/L Normal 8-15 [facility] Comment on above: Order Comment: Speci men Type: BLOOD SPECIMENOrdering Facility: [facility] Address: [address] [place] [address] Performed By: #### 1 751-7, 3040-3, 62058-8, 50889-1, 2777-1, 72750-6 ####[facility] LABORATORYCLIA [id number] [place] [id number] [place] Calcium [Mass/Vol] 8.8 mg/dL Normal 8.5-10.2 [facility] Comment on above: Order Comment: Speci men Type: BLOOD SPECIMENOrdering Facility: [facility] Address: [address] [place] [address] Performed By: #### 1 751-7, 3040-3, 47599-1, 48735-8, 2777-1, 18157-2 ####[facility] LABORATORYCLIA [id number] [place] [id number] [place] [facility] Chloride [Moles/Vol] 105 mmol/L Normal 98-107 [facility] Comment on above: Order Comment: Speci men Type: BLOOD SPECIMENOrdering Facility: [facility] Address: [address] [place] [address] Performed By: #### 1 751-7, 3040-3, 19401-5, 42667-6, 2777-1, 12614-4 ####[facility] LABORATORYCLIA [id number] [place] [address] [place] CO2 [Moles/Vol] 24 mmol/L Normal 22-30 [facility] Comment on above: Order Comment: Speci men Type: BLOOD SPECIMENOrdering Facility: [facility] Address: [address] [place] [address] Performed By: #### 1 751-7, 3040-3, 98885-1, 34155-5, 2777-1, 54532-3 ####[facility] LABORATORYCLIA [id number] [place] [address] [place] Creatinine [Mass/Vol] 5.34 mg/dL High 0.73-1.22 [facility] Comment on above: Order Comment: Speci men Type: BLOOD SPECIMENOrdering Facility: [facility] Address: [address] [place] [address] Performed By: #### 1 751-7, 3040-3, 93943-8, 97007-7, 2777-1, 82628-4 ####[facility] LABORATORYCLIA [id number] [place] [id number] [place] Creatinine and Glomerular filtration rate.predicted panel (S/P/Bld) 11 mL/min/1.73m??? Low >=60 [facility] Comment on above: Order Comment: Luz vaughan Type: BLOOD SPECIMENOrdering Facility: [facility] Address: [address] [place] [address] Result Comment: Breanne mated Glomerular Filtration Rate [...] GFR. Performed By: #### 1 751-7, 3040-3, 21756-6, 88028-2, 2777-1, ####[facility]WT[facility] LABORATORYCLIA [id number] [place] [address] [place] Glucose [Mass/Vol] 59 mg/dL Low 74-99 [facility] Comment on above: Order Comment: Luz vaughan Type: BLOOD SPECIMENOrdering Facility: [facility] Address: [address] [place] [address] Result Comment: The [place] Diabetes Association (ADA) provides guidance for cutoff [...] Standards of Medical Care in Diabetes 2016, [place] [employer]. Diabetes Care. 2016.39(Suppl 1). Performed By: #### 1 751-7, 3040-3, 42582-3, 50937-9, 7-1, ####[facility] LABORATORYCLIA [id number] [place] [id number] [place] Potassium [Moles/Vol] 4.7 mmol/L Normal 3.7-5.1 [facility] Comment on above: Order Comment: Luz vaughan Type: BLOOD SPECIMENOrdering Facility: [facility] Address: [address] [place] [address] Performed By: #### 1 751-7, 3040-3, 09916-3, 91768-7, 7-1, ####[facility] LABORATORYCLIA [id number] [place] [id number] [place] Sodium [Moles/Vol] 142 mmol/L Normal 136-144 [facility] Comment on above: Order Comment: Luz men Type: BLOOD SPECIMENOrdering Facility: [facility] Address: [address] [place], [place] [address] Performed By: #### 1 751-7, 3040-3, 96202-6, 80310-7, 7-1, 42574-5 ####ADK[facility] LABORATORYCLIA [id number] [place] [address] [place] Urea nitrogen [Mass/Vol] 71 mg/dL High 12-25 [facility] Comment on above: Order Comment: Speci men Type: BLOOD SPECIMENOrdering Facility: [facility] Address: [address] [place] [address] Performed By: #### 1 751-7, 3040-3, 74681-6, 13902-0, 2777-1, 00349-6 ####ADKINS LABORATORYCLIA [id number] [address] [place] CBC W Auto Differential pane l (Bld)on 07-14-2024 Basophils (Bld) [#/Vol] 10*3/uL Normal <0.11 [facility] Comment on above: Order Comment: Speci men Type: BLOOD SPECIMENOrdering Facility: [facility] Address: [address] [place] [address] Performed By: #### 5 7021-8 ####ADKINS LABORATORYCLIA [id number] [address] [place] Basophils/100 WBC (Bld) 0.2 % Normal [facility] Comment on above: Order Comment: Speci men Type: BLOOD SPECIMENOrdering Facility: [facility] Address: [address] [place] [address] Performed By: #### 5 7021-8 ####ADKINS LABORATORYCLIA [id number] [address] [facility] Differential cell count method Nom (Bld) Auto Normal [facility] Comment on above: Order Comment: Speci men Type: BLOOD SPECIMENOrdering Facility: [facility] Address: [address] [place] [address] Performed By: #### 5 7021-8 ####ADKINS LABORATORYCLIA [id number] [place] [address] [place] Eosinophils (Bld) [#/Vol] 0.10 10*3/uL Normal <0.46 [facility] Comment on above: Order Comment: Speci men Type: BLOOD SPECIMENOrdering Facility: [facility] Address: [address] [place] [address] Performed By: #### 5 7021-8 ####ADKINS LABORATORYCLIA [id number] [place] [address] [place] Eosinophils/100 WBC (Bld) 2.2 % Normal [facility] Comment on above: Order Comment: Speci men Type: BLOOD SPECIMENOrdering Facility: [facility] Address: [address] [place] [address] Performed By: #### 5 7021-8 ####ADKINS LABORATORYCLIA [id number] [address] [place] Erythrocyte distribution width (RBC) [Ratio] 13.3 % Normal 11.5-15.0 [facility] Comment on above: Order Comment: Speci men Type: BLOOD SPECIMENOrdering Facility: [facility] Address: [address] [place] [address] Performed By: #### 5 7021-8 ####ADKINS LABORATORYCLIA [id number] [address] [place] Hematocrit (Bld) [Volume fraction] 29.8 % Low 39.0-51.0 [facility] Comment on above: Order Comment: Speci men Type: BLOOD SPECIMENOrdering Facility: [facility] Address: [address] [place] [address] Performed By: #### 5 7021-8 ####ADK[facility] LABORATORYCLIA [id number] [address] [place] Hemoglobin (Bld) [Mass/Vol] 9.6 g/dL Low 13.0-17.0 [facility] Comment on above: Order Comment: Speci men Type: BLOOD SPECIMENOrdering Facility: [facility] Address: [address] [place] [address] Performed By: #### 5 7021-8 ####ADKINS LABORATORYCLIA [id number] [address] [place] Immature granulocytes (Bld) [#/Vol] 0.03 10*3/uL Normal <0.10 [facility] Comment on above: Order Comment: Speci men Type: BLOOD SPECIMENOrdering Facility: [facility] Address: [address] [place] [address] Performed By: #### 5 7021-8 ####ADKINS LABORATORYCLIA [id number] [address] Immature granulocytes/100 WBC (Bld) 0.7 % Normal [facility] Comment on above: Order Comment: Speci men Type: BLOOD SPECIMENOrdering Facility: [facility] Address: [address] [place] [address] Performed By: #### 5 7021-8 ####ADK[facility] LABORATORYCLIA [id number] [address] [place] Lymphocytes (Bld) [#/Vol] 1.15 10*3/uL Normal 1.00-4.00 [facility] Comment on above: Order Comment: Speci men Type: BLOOD SPECIMENOrdering Facility: [facility] Address: [address] [place] [address] Performed By: #### 5 7021-8 ####ADK[facility] LABORATORYCLIA [id number] [address] Lymphocytes/100 WBC (Bld) 25.3 % Normal [facility] Comment on above: Order Comment: Speci men Type: BLOOD SPECIMENOrdering Facility: [facility] Address: [address] [place] [address] Performed By: #### 5 7021-8 ####ADK[facility] LABORATORYCLIA [id number] [address] MCH (RBC) [Entitic mass] 28.4 pg Normal 26.0-34.0 [facility] Comment on above: Order Comment: Speci men Type: BLOOD SPECIMENOrdering Facility: [facility] Address: [address] [place] [address] Performed By: #### 5 7021-8 ####ADKINS LABORATORYCLIA [id number] [address] MCHC (RBC) [Mass/Vol] 32.2 g/dL Normal 30.5-36.0 [facility] Comment on above: Order Comment: Speci men Type: BLOOD SPECIMENOrdering Facility: [facility] Address: [address] [place] [address] Performed By: #### 5 7021-8 ####ADK[facility] LABORATORYCLIA [id number] [place] [address] [place] MCV (RBC) [Entitic vol] 88.2 fL Normal 80.0-100.0 [facility] Comment on above: Order Comment: Speci men Type: BLOOD SPECIMENOrdering Facility: [facility] Address: [address] [place] [address] Performed By: #### 5 7021-8 ####ADKINS LABORATORYCLIA [id number] [place] [address] [place] Monocytes (Bld) [#/Vol] 0.45 10*3/uL Normal <0.87 [facility] Comment on above: Order Comment: Speci men Type: BLOOD SPECIMENOrdering Facility: [facility] Address: [address] [place] [address] Performed By: #### 5 7021-8 ####ADK[facility] LABORATORYCLIA [id number] [address] [place] Monocytes/100 WBC (Bld) 9.9 % Normal [facility] Comment on above: Order Comment: Speci men Type: BLOOD SPECIMENOrdering Facility: [facility] Address: [address] [place] [address] Performed By: #### 5 7021-8 ####ADK[facility] LABORATORYCLIA [id number] [place] [address] [place] Neutrophils (Bld) [#/Vol] 2.80 10*3/uL Normal 1.45-7.50 [facility] Comment on above: Order Comment: Speci men Type: BLOOD SPECIMENOrdering Facility: [facility] Address: [address] [place] [address] Performed By: #### 5 7021-8 ####ADK[facility] LABORATORYCLIA [id number] [place] [address] [place] Neutrophils/100 WBC (Bld) 61.7 % Normal [facility] Comment on above: Order Comment: Speci men Type: BLOOD SPECIMENOrdering Facility: [facility] Address: [facility] [place] [address] Performed By: #### 5 7021-8 ####ADKINS LABORATORYCLIA [id number] [place] [address] [place] Nucleated RBC (Bld) [#/Vol] 10*3/uL Normal <0.01 [facility] Comment on above: Order Comment: Speci men Type: BLOOD SPECIMENOrdering Facility: [facility] Address: [address] [place] [address] Performed By: #### 5 7021-8 ####ADK[facility] LABORATORYCLIA [id number] [address] [place] Nucleated RBC/100 WBC (Bld) [Ratio] 0.0 /100 WBC Normal [facility] Comment on above: Order Comment: Speci men Type: BLOOD SPECIMENOrdering Facility: [facility] Address: [address] [place] [address] Performed By: #### 5 7021-8 ####ADK[facility] LABORATORYCLIA [id number] [place] [address] [place] Platelet mean volume (Bld) [Entitic vol] 9.6 fL Normal 9.0-12.7 [facility] Comment on above: Order Comment: Speci men Type: BLOOD SPECIMENOrdering Facility: [facility] Address: [address] [place] [address] Performed By: #### 5 7021-8 ####ADKINS LABORATORYCLIA [id number] [place] [address] [place] Platelets (Bld) [#/Vol] 230 10*3/uL Normal 150-400 [facility] Comment on above: Order Comment: Speci men Type: BLOOD SPECIMENOrdering Facility: [facility] Address: [address] [place] [address] Performed By: #### 5 7021-8 ####ADKINS LABORATORYCLIA [id number] [place] [address] [place] RBC (Bld) [#/Vol] 3.38 10*6/uL Low 4.20-6.00 [facility] Comment on above: Order Comment: Speci men Type: BLOOD SPECIMENOrdering Facility: [facility] Address: [address] [place] [address] Performed By: #### 5 7021-8 ####[facility] LABORATORYCLIA [id number] [place] [address] [place] WBC (Bld) [#/Vol] 4.54 10*3/uL Normal 3.70-11.00 [facility] Comment on above: Order Comment: Speci men Type: BLOOD SPECIMENOrdering Facility: [facility] Address: [address] [place] [address] Performed By: #### 5 7021-8 ####ADKINS LABORATORYCLIA [id number] [address] [facility] CONSULT PROGon 07-14-2024 CONSULT PROG Normal [facility] CT ABD/PEL WO IVCONon 2024 CT ABD/PEL WO IVCON Normal [facility] Hepatic function 2000 panelo n 07-14-2024 ALP [Catalytic activity/Vol] 65 U/L Normal 38-113 [facility] Comment on above: Order Comment: Speci men Type: BLOOD SPECIMENOrdering Facility: [facility] Address: [address] [place] [address] Performed By: #### 1 751-7, 3040-3, 57553-2, 82833-5, 2777-1, 93595-2 ####ADKINS LABORATORYCLIA [id number] [place] [id number] [place] ALT [Catalytic activity/Vol] 9 U/L Low 10-54 [facility] Comment on above: Order Comment: Speci men Type: BLOOD SPECIMENOrdering Facility: [facility] Address: [address] [place] [address] Performed By: #### 1 751-7, 3040-3, 19000-2, 41804-6, 2777-1, 75856-1 ####ADK[facility] LABORATORYCLIA [id number] [place] [address] [place] AST [Catalytic activity/Vol] 13 U/L Low 14-40 [facility] Comment on above: Order Comment: Speci men Type: BLOOD SPECIMENOrdering Facility: [facility] Address: [address] [place] [address] Performed By: #### 1 751-7, 3040-3, 37264-2, 37537-2, 2777-1, 16792-4 ####[facility] LABORATORYCLIA [id number] [place] [address] [place] Bilirubin [Mass/Vol] 0.2 mg/dL Normal 0.2-1.3 [facility] Comment on above: Order Comment: Speci men Type: BLOOD SPECIMENOrdering Facility: [facility] Address: [address] [place] [address] Performed By: #### 1 751-7, 3040-3, 89247-5, 15030-6, 2777-1, 68009-6 ####[facility] LABORATORYCLIA [id number] [address] [place] Bilirubin.conjugated [Mass/Vol] mg/dL Normal <0.3 [facility] Comment on above: Order Comment: Speci men Type: BLOOD SPECIMENOrdering Facility: [facility] Address: [address] [place] [address] Performed By: #### 1 751-7, 3040-3, 29538-5, 12635-6, 2777-1, 45382-9 ####[facility] LABORATORYCLIA [id number] [place] [address] [place] Protein [Mass/Vol] 5.5 g/dL Low 6.3-8.0 [facility] Comment on above: Order Comment: Speci men Type: BLOOD SPECIMENOrdering Facility: [facility] Address: [address] [place] [address] Performed By: #### 1 751-7, 3040-3, 54190-8, 03870-9, 2777-1, 59147-5 ####[facility] LABORATORYCLIA [id number] [place] [address] [place] Lipase SerPl-cCncon 07-15-19 25 Lipase [Catalytic activity/Vol] 12 U/L Low 16-61 [facility] Comment on above: Order Comment: Speci men Type: BLOOD SPECIMENOrdering Facility: [facility] Address: [facility] [place] [address] Performed By: #### 1 751-7, 3040-3, 96314-2, 15419-9, 2777-1, 52031-6 ####[facility] LABORATORYCLIA [id number] [place] [address] [place] Magnesium SerPl-mCncon 07-14 Magnesium [Mass/Vol] 2.0 mg/dL Normal 1.7-2.3 [facility] Comment on above: Order Comment: Speci men Type: BLOOD SPECIMENOrdering Facility: [facility] Address: [address] [place] [address] Performed By: #### 1 751-7, 3040-3, 31765-3, 18791-4, 2777-1, 26325-1 ####ADKINS LABORATORYCLIA [id number] [place] [address] [place] NURSING PROGon 07-14-2024 NURSING PROG Normal [facility] Phosphate SerPl-mCncon 07-14 Phosphate [Mass/Vol] 7.4 mg/dL High 2.7-4.8 [facility] Comment on above: Order Comment: Speci men Type: BLOOD SPECIMENOrdering Facility: [facility] Address: [address] [place] [address] [address] Performed By: #### 1 751-7, 3040-3, 61157-2, 84099-3, 2777-1, 06131-9 ####[facility] LABORATORYCLIA [id number] [place] [id number] [place] Albumin SerPl-mCncon 025 Albumin [Mass/Vol] 3.1 g/dL Low 3.9-4.9 [facility] Comment on above: Order Comment: Speci men Type: BLOOD SPECIMENOrdering Facility: [facility] Address: [address] [place] [address] [place] [id number] Performed By: #### 2 777-1, 7, 35680-3, ####ADKINS LABORATORYCLIA [id number] [place] [address] [place] Basic metabolic 2000 panelon 07-13-2024 Anion gap [Moles/Vol] 10 mmol/L Normal 8-15 [facility] Comment on above: Order Comment: Speci men Type: BLOOD SPECIMENOrdering Facility: [facility] Address: [facility] [place] [address] Performed By: #### 2 777-1, 7, 97519-3, ####ADKINS LABORATORYCLIA [id number] [place] [address] [place] Calcium [Mass/Vol] 9.1 mg/dL Normal 8.5-10.2 [facility] Comment on above: Order Comment: Speci men Type: BLOOD SPECIMENOrdering Facility: [facility] Address: [facility] [place] [address] Performed By: #### 2 777-1, 7, 71774-2, ####ADK[facility] LABORATORYCLIA [id number] [place] [id number] [place] Chloride [Moles/Vol] 108 mmol/L High 98-107 [facility] Comment on above: Order Comment: Speci men Type: BLOOD SPECIMENOrdering Facility: [facility] Address: [facility] [place] [address] Performed By: #### 2 777-1, 1750-10, 51650-3, ####ADKINS LABORATORYCLIA [id number] [place] [address] [place] CO2 [Moles/Vol] 24 mmol/L Normal 22-30 [facility] Comment on above: Order Comment: Speci men Type: BLOOD SPECIMENOrdering Facility: [facility] Address: [address] [place], [place] [address] [address] Performed By: #### 2 777-1, 7, 79336-4, ####ADKINS LABORATORYCLIA [id number] [place] [address] [place] Creatinine [Mass/Vol] 5.30 mg/dL High 0.73-1.22 [facility] Comment on above: Order Comment: Luz vaughan Type: BLOOD SPECIMENOrdering Facility: [facility] Address: [address] [place] [address] Performed By: #### 2 777-1, 1757, 95865-1, 63299-2 ####LAWTON LABORATORYCLIA [id number] [place] [id number] [place] Creatinine and Glomerular filtration rate.predicted panel (S/P/Bld) 11 mL/min/1.73m??? Low >=60 [facility] Comment on above: Order Comment: [facility] Type: BLOOD SPECIMENOrdering Facility: [facility] Address: [address] [place] [address] Result Comment: Breanne mated Glomerular Filtration Rate [...] actual GFR. Performed By: #### 2 777-1, 7, 75918-4, 61639-6 ####LAWTON LABORATORYCLIA [id number] [place] [id number] [place] Glucose [Mass/Vol] 66 mg/dL Low 74-99 [facility] Comment on above: Order Comment: Luz vaughan Type: BLOOD SPECIMENOrdering Facility: [facility] Address: [address] [place] [address] Result Comment: The [place] [employer] (ADA) provides guidance for cutoff [...] Standards of Medical Care in Diabetes 2016, [place] [employer]. Diabetes Care. 2016.39(Suppl 1). Performed By: #### 2 777-1, 1750-10, 93577-4, ####ADKINS LABORATORYCLIA [id number] [place] [address] [place] Potassium [Moles/Vol] 4.5 mmol/L Normal 3.7-5.1 [facility] Comment on above: Order Comment: Luz vaughan Type: BLOOD SPECIMENOrdering Facility: [facility] Address: [address] [place] [address] Performed By: #### 2 777-1, 1750-10, 73195-1, ####ADKINS LABORATORYCLIA [id number] [address] [place] Sodium [Moles/Vol] 142 mmol/L Normal 136-144 [facility] Comment on above: Order Comment: Luz vaughan Type: BLOOD SPECIMENOrdering Facility: [facility] Address: [address] [place] [address] Performed By: #### 2 777-1, 1750-10, , ####ADKINS LABORATORYCLIA [id number] [place] [address] [place] Urea nitrogen [Mass/Vol] 74 mg/dL High 9-24 [facility] Comment on above: Order Comment: Luz vaughan Type: BLOOD SPECIMENOrdering Facility: [facility] Address: [address] [place] [address] Performed By: #### 2 777-1, 1750-10, , ####ADKINS LABORATORYCLIA [id number] [place] [address] [place] CBC W Auto Differential pane l (Bld)on 07-13-2024 Basophils (Bld) [#/Vol] 10*3/uL Normal <0.11 [facility] Comment on above: Order Comment: Speci men Type: BLOOD SPECIMENOrdering Facility: [facility] Address: [address] [place] [address] Performed By: #### 5 7021-8 ####ADKINS LABORATORYCLIA [id number] [address] [place] Basophils/100 WBC (Bld) 0.2 % Normal [facility] Comment on above: Order Comment: Speci men Type: BLOOD SPECIMENOrdering Facility: [facility] Address: [address] [place] [address] Performed By: #### 5 7021-8 ####ADKINS LABORATORYCLIA [id number] [place] [address] [place] [facility] [place] Differential cell count method Nom (Bld) Auto Normal [facility] Comment on above: Order Comment: Speci men Type: BLOOD SPECIMENOrdering Facility: [facility] Address: [address] [place] [address] Performed By: #### 5 7021-8 ####ADKINS LABORATORYCLIA [id number] [place] [address] [place] Eosinophils (Bld) [#/Vol] 0.23 10*3/uL Normal <0.46 [facility] Comment on above: Order Comment: Speci men Type: BLOOD SPECIMENOrdering Facility: [facility] Address: [address] [place] [address] Performed By: #### 5 7021-8 ####ADKINS LABORATORYCLIA [id number] [address] [place] Eosinophils/100 WBC (Bld) 4.9 % Normal [facility] Comment on above: Order Comment: Speci men Type: BLOOD SPECIMENOrdering Facility: [facility] Address: [address] [place] [address] Performed By: #### 5 7021-8 ####ADKINS LABORATORYCLIA [id number] [place] [address] [place] Erythrocyte distribution width (RBC) [Ratio] 13.3 % Normal 11.5-15.0 [facility] Comment on above: Order Comment: Speci men Type: BLOOD SPECIMENOrdering Facility: [facility] Address: [facility] [place] [address] Performed By: #### 5 7021-8 ####ADKINS LABORATORYCLIA [id number] [address] [place] Hematocrit (Bld) [Volume fraction] 30.5 % Low 39.0-51.0 [facility] Comment on above: Order Comment: Speci men Type: BLOOD SPECIMENOrdering Facility: [facility] Address: [address] [place] [address] Performed By: #### 5 7021-8 ####ADK[facility] LABORATORYCLIA [id number] [place] [address] [place] Hemoglobin (Bld) [Mass/Vol] 9.9 g/dL Low 13.0-17.0 [facility] Comment on above: Order Comment: Speci men Type: BLOOD SPECIMENOrdering Facility: [facility] Address: [address] [place] [address] Performed By: #### 5 7021-8 ####[facility] LABORATORYCLIA [id number] [address] [place] Immature granulocytes (Bld) [#/Vol] 0.03 10*3/uL Normal <0.10 [facility] Comment on above: Order Comment: Speci men Type: BLOOD SPECIMENOrdering Facility: [facility] Address: [address] [place] [address] [place] [address] Performed By: #### 5 7021-8 ####[facility] LABORATORYCLIA [id number] [address] [place] Immature granulocytes/100 WBC (Bld) 0.6 % Normal [facility] Comment on above: Order Comment: Speci men Type: BLOOD SPECIMENOrdering Facility: [facility] Address: [address] [place] [address] [place] [address] Performed By: #### 5 7021-8 ####[facility] LABORATORYCLIA [id number] [address] [place] Lymphocytes (Bld) [#/Vol] 1.33 10*3/uL Normal 1.00-4.00 [facility] Comment on above: Order Comment: Speci men Type: BLOOD SPECIMENOrdering Facility: [facility] Address: [address] [place] [address] Performed By: #### 5 7021-8 ####[facility] LABORATORYCLIA [id number] [address] Lymphocytes/100 WBC (Bld) 28.5 % Normal [facility] Comment on above: Order Comment: Speci men Type: BLOOD SPECIMENOrdering Facility: [facility] Address: [address] [place] [address] Performed By: #### 5 7021-8 ####[facility] LABORATORYCLIA [id number] [address] MCH (RBC) [Entitic mass] 28.4 pg Normal 26.0-34.0 [facility] Comment on above: Order Comment: Speci men Type: BLOOD SPECIMENOrdering Facility: [facility] Address: [address] [place] [address] Performed By: #### 5 7021-8 ####ADK[facility] LABORATORYCLIA [id number] [address] [place] [facility] MCHC (RBC) [Mass/Vol] 32.5 g/dL Normal 30.5-36.0 [facility] Comment on above: Order Comment: Speci men Type: BLOOD SPECIMENOrdering Facility: [facility] Address: [address] [place] [address] Performed By: #### 5 7021-8 ####ADKINS LABORATORYCLIA [id number] [address] MCV (RBC) [Entitic vol] 87.6 fL Normal 80.0-100.0 [facility] Comment on above: Order Comment: Speci men Type: BLOOD SPECIMENOrdering Facility: [facility] Address: [address] [place] [address] Performed By: #### 5 7021-8 ####ADKINS LABORATORYCLIA [id number] [address] Monocytes (Bld) [#/Vol] 0.54 10*3/uL Normal <0.87 [facility] Comment on above: Order Comment: Speci men Type: BLOOD SPECIMENOrdering Facility: [facility] Address: [address] [place] [address] Performed By: #### 5 7021-8 ####ADKINS LABORATORYCLIA [id number] [place] [address] [place] Monocytes/100 WBC (Bld) 11.6 % Normal [facility] Comment on above: Order Comment: Speci men Type: BLOOD SPECIMENOrdering Facility: [facility] Address: [address] [place] [address] Performed By: #### 5 7021-8 ####ADKINS LABORATORYCLIA [id number] [place] [address] [place] Neutrophils (Bld) [#/Vol] 2.53 10*3/uL Normal 1.45-7.50 [facility] Comment on above: Order Comment: Speci men Type: BLOOD SPECIMENOrdering Facility: [facility] Address: [address] [place] [address] Performed By: #### 5 7021-8 ####ADKINS LABORATORYCLIA [id number] [place] [address] [place] Neutrophils/100 WBC (Bld) 54.2 % Normal [facility] Comment on above: Order Comment: Speci men Type: BLOOD SPECIMENOrdering Facility: [facility] Address: [address] [place] [address] Performed By: #### 5 7021-8 ####ADK[facility] LABORATORYCLIA [id number] [place] [address] [place] Nucleated RBC (Bld) [#/Vol] 10*3/uL Normal <0.01 [facility] Comment on above: Order Comment: Speci men Type: BLOOD SPECIMENOrdering Facility: [facility] Address: [address] [place] [address] Performed By: #### 5 7021-8 ####ADK[facility] LABORATORYCLIA [id number] [place] [address] [place] Nucleated RBC/100 WBC (Bld) [Ratio] 0.0 /100 WBC Normal [facility] Comment on above: Order Comment: Speci men Type: BLOOD SPECIMENOrdering Facility: [facility] Address: [address] [facility] [place] [address] Performed By: #### 5 7021-8 ####ADK[facility] LABORATORYCLIA [id number] [address] [place] Platelet mean volume (Bld) [Entitic vol] 9.3 fL Normal 9.0-12.7 [facility] Comment on above: Order Comment: Speci men Type: BLOOD SPECIMENOrdering Facility: [facility] Address: [address] [place] [address] Performed By: #### 5 7021-8 ####ADK[facility] LABORATORYCLIA [id number] [address] [place] Platelets (Bld) [#/Vol] 225 10*3/uL Normal 150-400 [facility] Comment on above: Order Comment: Speci men Type: BLOOD SPECIMENOrdering Facility: [facility] Address: [address] [place] [address] Performed By: #### 5 7021-8 ####ADK[facility] LABORATORYCLIA [id number] [place] [address] [place] RBC (Bld) [#/Vol] 3.48 10*6/uL Low 4.20-6.00 [facility] Comment on above: Order Comment: Speci men Type: BLOOD SPECIMENOrdering Facility: [facility] Address: [address] [place] [address] Performed By: #### 5 7021-8 ####[facility] LABORATORYCLIA [id number] [address] [place] WBC (Bld) [#/Vol] 4.67 10*3/uL Normal 3.70-11.00 [facility] Comment on above: Order Comment: Speci men Type: BLOOD SPECIMENOrdering Facility: [facility] Address: [address] [place] [address] Performed By: #### 5 7021-8 ####[facility] LABORATORYCLIA [id number] [address] [place] CONSULT PROGon 07-13-2024 CONSULT PROG Normal [facility] Magnesium SerPl-mCncon 07-13 Magnesium [Mass/Vol] 1.8 mg/dL Normal 1.7-2.3 [facility] Comment on above: Order Comment: Speci men Type: BLOOD SPECIMENOrdering Facility: [facility] Address: [address] [place] [address] Performed By: #### 2 777-1, 175-7, 09411-8, 49084-0 ####[facility] LABORATORYCLIA [id number] [place] [address] [place] Phosphate SerPl-mCncon 07-13 Phosphate [Mass/Vol] 6.5 mg/dL High 2.7-4.8 [facility] Comment on above: Order Comment: Speci men Type: BLOOD SPECIMENOrdering Facility: [facility] Address: [address] [place] [address] Performed By: #### 2 777-1, 175-7, 24567-9, 50752-4 ####[facility] LABORATORYCLIA [id number] [place] [address] [place] Basic metabolic 2000 panelon 07-12-2024 Anion gap [Moles/Vol] 13 mmol/L Normal 8-15 [facility] Comment on above: Order Comment: Speci men Type: BLOOD SPECIMENOrdering Facility: [facility] Address: [address] [place] [address] Performed By: #### 2 4321-2 ####[facility] LABORATORYCLIA [id number] [place] [address] [place] Calcium [Mass/Vol] 8.9 mg/dL Normal 8.5-10.2 [facility] Comment on above: Order Comment: Speci men Type: BLOOD SPECIMENOrdering Facility: [facility] Address: [address] [place] [address] Performed By: #### 2 4321-2 ####[facility] LABORATORYCLIA [id number] [place] [address] [place] Chloride [Moles/Vol] 108 mmol/L High 98-107 [facility] Comment on above: Order Comment: Speci men Type: BLOOD SPECIMENOrdering Facility: [facility] Address: [address] [place] [address] Performed By: #### 2 4321-2 ####ADKINS LABORATORYCLIA [id number] [place] [id number] [place] CO2 [Moles/Vol] 22 mmol/L Normal 22-30 [facility] Comment on above: Order Comment: Speci men Type: BLOOD SPECIMENOrdering Facility: [facility] Address: [address] [place] [address] Performed By: #### 2 4321-2 ####ADKINS LABORATORYCLIA [id number] [place] [address] [place] Creatinine [Mass/Vol] 5.23 mg/dL High 0.73-1.22 [facility] Comment on above: Order Comment: Speci men Type: BLOOD SPECIMENOrdering Facility: [facility] Address: [address] [place] [address] Performed By: #### 2 4321-2 ####ADK[facility] LABORATORYCLIA [id number] [place] [address] [place] Creatinine and Glomerular filtration rate.predicted panel (S/P/Bld) 12 mL/min/1.73m??? Low >=60 [facility] Comment on above: Order Comment: Luz clement Type: BLOOD SPECIMENOrdering Facility: [facility] Address: [address] [place] [address] Result Comment: Breanne mated Glomerular Filtration Rate [...] Performed By: #### 2 4321-2 ####ADK[facility] LABORATORYCLIA [id number] [place] [id number] [place] Glucose [Mass/Vol] 61 mg/dL Low 74-99 [facility] Comment on above: Order Comment: Luz men Type: BLOOD SPECIMENOrdering Facility: [facility] Address: [address] [place], [place] [address] Result Comment: The [place] [employer] Association (ADA) provides guidance for cutoff [...] Standards of Medical Care in Diabetes 2016, [place] [employer]. Diabetes Care. 2016.39(Suppl 1). Performed By: #### 2 4321-2 ####ADK[facility] LABORATORYCLIA [id number] [place] [address] [place] Potassium [Moles/Vol] 5.0 mmol/L Normal 3.7-5.1 [facility] Comment on above: Order Comment: Luz vaughan Type: BLOOD SPECIMENOrdering Facility: [facility] Address: [address] [place] [address] Performed By: #### 2 4321-2 ####ADK[facility] LABORATORYCLIA [id number] [place] [address] [place] Sodium [Moles/Vol] 143 mmol/L Normal 136-144 [facility] Comment on above: Order Comment: Luz men Type: BLOOD SPECIMENOrdering Facility: [facility] Address: [address] [place] [address] Performed By: #### 2 4321-2 ####ADK[facility] LABORATORYCLIA [id number] [place] [address] [place] Urea nitrogen [Mass/Vol] 77 mg/dL High 9-24 [facility] Comment on above: Order Comment: Luz men Type: BLOOD SPECIMENOrdering Facility: [facility] Address: [address] [place] [id number] Performed By: #### 2 4321-2 ####ADKINS LABORATORYCLIA [id number] [address] [place] CASE MANAGEMon 07-12-2024 CASE MANAGEM Normal [facility] CBC panel Auto (Bld)on 07-12 Erythrocyte distribution width (RBC) [Ratio] 13.2 % Normal 11.5-15.0 [facility] Comment on above: Order Comment: Speci men Type: BLOOD SPECIMENOrdering Facility: [facility] Address: [address] [place] [address] Performed By: #### 5 8410-2 ####AD[facility] LABORATORYCLIA [id number] [address] Hematocrit (Bld) [Volume fraction] 31.8 % Low 39.0-51.0 [facility] Comment on above: Order Comment: Speci men Type: BLOOD SPECIMENOrdering Facility: [facility] Address: [address] [place] [address] Performed By: #### 5 8410-2 ####ADK[facility] LABORATORYCLIA [id number] [address] Hemoglobin (Bld) [Mass/Vol] 10.4 g/dL Low 13.0-17.0 [facility] Comment on above: Order Comment: Speci men Type: BLOOD SPECIMENOrdering Facility: [facility] Address: [address] [place] [address] Performed By: #### 5 8410-2 ####ADK[facility] LABORATORYCLIA [id number] [address] MCH (RBC) [Entitic mass] 28.7 pg Normal 26.0-34.0 [facility] Comment on above: Order Comment: Speci men Type: BLOOD SPECIMENOrdering Facility: [facility] Address: [address] [place] [address] Performed By: #### 5 8410-2 ####ADK[facility] LABORATORYCLIA [id number] [address] [place] MCHC (RBC) [Mass/Vol] 32.7 g/dL Normal 30.5-36.0 [facility] Comment on above: Order Comment: Speci men Type: BLOOD SPECIMENOrdering Facility: [facility] Address: [address] [place] [address] Performed By: #### 5 8410-2 ####ADK[facility] LABORATORYCLIA [id number] [address] MCV (RBC) [Entitic vol] 87.8 fL Normal 80.0-100.0 [facility] Comment on above: Order Comment: Speci men Type: BLOOD SPECIMENOrdering Facility: [facility] Address: [address] [place] [address] Performed By: #### 5 8410-2 ####ADK[facility] LABORATORYCLIA [id number] [address] Nucleated RBC (Bld) [#/Vol] 10*3/uL Normal <0.01 [facility] Comment on above: Order Comment: Speci men Type: BLOOD SPECIMENOrdering Facility: [facility] Address: [address] [place] [address] Performed By: #### 5 8410-2 ####ADK[facility] LABORATORYCLIA [id number] [address] Platelet mean volume (Bld) [Entitic vol] 9.2 fL Normal 9.0-12.7 [facility] Comment on above: Order Comment: Speci men Type: BLOOD SPECIMENOrdering Facility: [facility] Address: [address] [place] [address] Performed By: #### 5 8410-2 ####ADK[facility] LABORATORYCLIA [id number] [address] Platelets (Bld) [#/Vol] 227 10*3/uL Normal 150-400 [facility] Comment on above: Order Comment: Speci men Type: BLOOD SPECIMENOrdering Facility: [facility] Address: [address] [place] [address] Performed By: #### 5 8410-2 ####ADKISN LABORATORYCLIA [id number] [address] RBC (Bld) [#/Vol] 3.62 10*6/uL Low 4.20-6.00 [facility] Comment on above: Order Comment: Specjonas vaughan Type: BLOOD SPECIMENOrdering Facility: [facility] Address: [address] [place] [id number] Performed By: #### 5 8410-2 ####ADK[facility] LABORATORYCLIA [id number] [address] WBC (Bld) [#/Vol] 5.32 10*3/uL Normal 3.70-11.00 [facility] Comment on above: Order Comment: Speci men Type: BLOOD SPECIMENOrdering Facility: [facility] Address: [address] [place] [id number] Performed By: #### 5 8410-2 ####[facility] LABORATORYCLIA [id number] [address] CNPNon 07-12-2024 CNPN Telephone (HCSIND) -- JOSÉ MANUEL ASHTON ([id number]) 1960 [facility] Date Time Provider Department 07/12/24 JUDITH CAT HCSIND During your visit today, we recorded the following information about you: Judith Cat LPN 07/12/2024 10:24 AM Signed Bunny Scott MD Please advise if you are agreeable to signing and following for [facility] services? Our Clinicians will be sending the Plan of Care to you for review and approval. They will reach out for any appropriate orders required to provide home care services for the patient. We are not able to initiate [facility] services without a following provider. Home care clinicians may also obtain orders from [facility] Virtualist Providers Thank you and we would be happy to answer any questions. Judith Cat LPN 07/12/2024 10:23 AM Allergies As of Date: 07/12/2024 Noted Allergy Reaction PENICILLINS 07/24/2020 16 - Unknown Comments: Pt states he thinks he had a reaction as a child Date Reviewed: 07/12/2024 Reviewed by: Christina Vincent RN - Fully Assessed Reason for Visit: [...] are managed by this patient by: PATIENT Nusrat Lewis, OA 11/08/[address] Scott: "Patient to continue to use the SSI only, no regular scheduled Insulin dosing at this time." Patient's sister has been notified and verbalizes understanding." M. [place] RN Problem List As Of Date 07/12/2024 Noted Resolved Vitamin D deficiency [E55.9] 02/20/2020 Marijuana use [F12.90] 02/20/2020 Microalbuminuria [R80.9] 02/20/2020 Obesity, Class II, BMI 35-39.9 [E66.812] 02/20/2020 05/25/2023 Chronic bilateral low back pain [M54.50, G89.29]02/20/2020 Weakness [R53.1] 05/05/2020 06/15/2020 Decreased mobility and endurance [Z74.09] 05/05/2020 06/15/2020 Severe episode of r (more content not included)... Normal [facility] CONSULT PROGon 07-12-2024 CONSULT PROG [facility] CT BIOPSY RENALon 07-12-2024 CT BIOPSY RENAL [facility] PT EDon 07-12-2024 PT ED [facility] Pathology biopsy report Kade (Tiss)on 07-12-2024 ADDENDUM 1: [facility] Comment on above: Order Comment: Speci men Type: TISSUE SPECIMENOrdering Facility: [facility] Address: [address] [place] [address] Result Comment: A Co cano red stain for amyloid is negative. The diagnosis is unchanged.Addendum electronically signed by Leida Jones MD on 07/17/2024 at 1643 EDT Performed By: #### 6 6121-5 ####[facility] LABCLIA [id number] [place] [address] [place] AP DISCLAIMER [facility] Comment on above: Order Comment: Speci men Type: TISSUE SPECIMENOrdering Facility: [facility] Address: [address] [place] [address] Result Comment: Naya Gonzalez Test (LDT) Disclaimer:Performance characteristics of immunohistochemical, immunofluorescent, and chromogenic in-situ hybridization tests have been determined by the performing laboratory within [facility]'s Antoine Garcia Pathology and Laboratory Medicine Department ([facility], [facility], [facility], [facility], [facility], [facility], or [facility]) in a manner consistent with CLIA requirements. One or more of these tests may not have been cleared or approved by the FDA. [facility] is regulated under CLIA as qualified to perform high-complexity testing. These tests are used for clinical purposes. These should not be regarded as investigational or for research. Positive and negative controls stain appropriately. Performed By: #### 6 6121-5 ####[facility] LABIA [id number] [place] [id number] [place] CASE REPORT Normal [facility] Comment on above: Order Comment: Speci men Type: TISSUE SPECIMENOrdering Facility: [facility] Address: [address] [place] [address] Result Comment: [facility] Pathology Report Case: [id number] Provider: Luis [place] Garcia MD Collected: 07/12/2024 02:38 PMOrdering Location: [facility] Three Received: 07/12/2024 02:55 PM SouthPathologist: Leida Jones MDSpecimen: Kidney, Right, Biopsy Performed By: #### 6 6121-5 ####[facility] LABIA [id number] [address] [place] CLINICAL HISTORY 63-year-old man with history of diabetes, presenting with TARYN on CKD. Creatinine 5.71, albumin 3.2, UA protein 3+/blood 1+, UPCR 7.24, JAMARCUS negative, C3/C4 within normal limits, ANCA negative, kappa lambda ratio within normal limits. Normal [facility] Comment on above: Order Comment: Speci men Type: TISSUE SPECIMENOrdering Facility: [facility] Address: [address] [place] [address] Performed By: #### 6 6121-5 ####[facility] LABIA [id number] [place] [id number] [place] DIAGNOSIS COMMENT Normal [facility] Comment on above: Order Comment: Speci men Type: TISSUE SPECIMENOrdering Facility: [facility] Address: [address] [place] [address] Performed By: #### 6 6121-5 ####[facility] LABCLIA [id number] [address] FINAL DIAGNOSIS [facility] Comment on above: Order Comment: Speci [facility] Type: TISSUE SPECIMENOrdering Facility: [facility] Address: [address] [place] [address] Result Comment: Tomás ross, Right, Biopsy:- 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 See comment.- Tubular atrophy and interstitial fibrosis, severe.- Arteriosclerosis, moderate, and arteriolosclerosis, severe. at 1508 EDT Performed By: #### 6 6121-5 ####[facility] LABCLIA [id number] [address] FINAL PERFORMING LAB [facility] Comment on above: Order Comment: Speci [facility] Type: TISSUE SPECIMENOrdering Facility: [facility] Address: [address] [place] [address] Result Comment: Diag nostic interpretation performed at: [facility], [address] [place] [address], [place] [address] CLIA# [id number] Director: Teja Pedraza MD Performed By: #### 6 6121-5 ####[facility] LABCLIA [id number] [address] OF [facility] GROSS DESCRIPTION [facility] Comment on above: Order Comment: [facility] Type: TISSUE SPECIMENOrdering Facility: [facility] Address: [address] [place] [address] Result Comment: Tomás ross, Right, BiopsyReceived fresh on saline moistened Telfa gauze are two segments of cylindrical flores, soft tissue aggregating to 2.3 x 0.2 x 0.1 cm. A portion is frozen and kept frozen for direct immunofluorescence. A portion is submitted for electron microscopy. A portion is submitted in formalin for light microscopy in cassette A2.Gross examination performed at [place] [id number], [place] [id number] July 12, 2024 7:09 PM Performed By: #### 6 6121-5 ####[facility] [id number] [place] [address] [place] MICROSCOPIC DESCRIPTION Normal [facility] Comment on above: Order Comment: Speci men Type: TISSUE SPECIMENOrdering Facility: [facility] Address: [address], [place] [address] Result Comment: Sect ions are stained for [...] C1q, and are negative for other immunoreactants. Belcher and lambda stain equally throughout the tubulointerstitium [...] the tubulointerstitium. Performed By: #### 6 6121-5 ####[facility] [id number] [place] [id number] [place] ALBUMIN/CREATININE RATIO, UR INEon 07-11-2024 Albumin DL <= 20 mg/L (U) [Mass/Vol] 1966.9 mg/L Normal [facility] Comment on above: Order Comment: Speci men Type: URINE SPECIMENOrdering Facility: [facility] Address: [address] [place] [address] Performed By: #### 3 5677-4, 2890-2, UACR, 85251-9, 02425-3 ####[facility] LABCLIA [id number] [address] [address] [place] Albumin/Creatinine (U) [Mass ratio] 4276 mg/g High <30 [facility] Comment on above: Order Comment: Speci men Type: URINE SPECIMENOrdering Facility: [facility] Address: [address] [place] [address] Result Comment: Adul t Male and Female Nephrotic Criteria:<30 mg/g is considered normal to mildly jkaiuwznn35-922 mg/g is considered moderately increased>300 mg/g is considered severely increasedKDIGO. (2013). KDIGO 2012 Clinical Practice Guideline for the Evaluation and Management of Chronic Kidney Disease. Official Journal of the International Society of Nephrology, 3(1), 1-150. Performed By: #### 3 5677-4, 2890-2, UACR, 94645-5, 24800-0 ####[facility] LABCLIA [id number] [place] [address] [place] JAMARCUS BY IFA SCREENon 07-12-19 25 Nuclear Ab Ql (S) Negative Normal Negative [facility] [facility] Comment on above: Order Comment: Speci men Type: BLOOD SPECIMENOrdering Facility: [facility] Address: [address] [place] [address] Result Comment: Anti -nuclear antibody test is used as an aid in diagnosis of systemic autoimmune diseases. Where positive and clinically warranted, follow-up using disease-specific testing is recommended. Low positive titers are not uncommon with advanced age, certain chronic infections, and malignancies among others.Test methodology: Indirect fluorescence immunoassay (IFA) using HEp-2 cells. Performed By: #### A NAIFS, ANCA ####[facility] LABCLIA [id number] [place] [address] [place] ANTI NEUTRO CYTO ABon 2024 INTERPRETATION (ANCA) Equivocal staining seen on the ethanol (indirect immunofluorescence screen) slide but negative results on follow up confirmatory testing. Anti-nuclear antibody test may be considered. Clinical correlation is required. Normal [facility] Comment on above: Order Comment: Speci men Type: BLOOD SPECIMENOrdering Facility: [facility] Address: [address] [place] [address] Performed By: #### A NAIFS, ANCA ####[facility] LABCLIA [id number] [place] [address] [place] Myeloperoxidase Ab Qn (S) <0.2 Normal <1.0 [facility] Comment on above: Order Comment: Speci men Type: BLOOD SPECIMENOrdering Facility: [facility] Address: [address] [place] [address] Performed By: #### A NAIFS, ANCA ####[facility] LABCLIA [id number] [place] [address] [place] Neutrophil cytoplasmic Ab.classic IF Ql (S) Negative Normal Negative [facility] Comment on above: Order Comment: Speci men Type: BLOOD SPECIMENOrdering Facility: [facility] Address: [address] [place] [address] Performed By: #### A NAIFS, ANCA ####[facility] LABCLIA [id number] [place] [address] [place] Neutrophil cytoplasmic Ab.perinuclear IF Ql (S) Negative Normal Negative [facility] Comment on above: Order Comment: Speci men Type: BLOOD SPECIMENOrdering Facility: [facility] Address: [address] [place] [address] Performed By: #### A NAIFS, ANCA ####[facility] LABCLIA [id number] [place] [address] [place] Proteinase 3 Ab Qn (S) <0.2 Normal <1.0 [facility] Comment on above: Order Comment: Speci men Type: BLOOD SPECIMENOrdering Facility: [facility] Address: [address] [place] [address] Performed By: #### A NAIFS, ANCA ####[facility] LABCLIA [id number] [address] STAFF REVIEW (ANCA) Reviewed by Moe Bailey, Ph.D D(DAVID) [facility] Comment on above: Order Comment: Speci men Type: BLOOD SPECIMENOrdering Facility: [facility] Address: [address] [place] [address] Performed By: #### A NAIFS, ANCA ####[facility] [id number] [place] [address] [place] [facility] Basic metabolic 2000 panelon 07-11-2024 Anion gap [Moles/Vol] 14 mmol/L Normal 8-15 [facility] Comment on above: Order Comment: Speci men Type: BLOOD SPECIMENOrdering Facility: [facility] Address: [address] [place] [address] Performed By: #### 2 4321-2 ####[facility]ORY[facility] [id number] [place] [address] [place] Calcium [Mass/Vol] 8.9 mg/dL Normal 8.5-10.2 [facility] Comment on above: Order Comment: Speci men Type: BLOOD SPECIMENOrdering Facility: [facility] Address: [address] [place] [address] Performed By: #### 2 4321-2 ####[facility]ATORYCLIA [id number] [place] [address] [place] Chloride [Moles/Vol] 109 mmol/L High 98-107 [facility] Comment on above: Order Comment: Speci men Type: BLOOD SPECIMENOrdering Facility: [facility] Address: [address] [place] [address] Performed By: #### 2 4321-2 ####[facility]ORYCLIA [id number] [place] [address] [place] CO2 [Moles/Vol] 22 mmol/L Normal 22-30 [facility] Comment on above: Order Comment: Luz vaughan Type: BLOOD SPECIMENOrdering Facility: [facility] Address: [address] [place] [address] Performed By: #### 2 4321-2 ####[facility]ATORYCLIA [id number] [address] [place] Creatinine [Mass/Vol] 6.10 mg/dL High 0.73-1.22 [facility] Comment on above: Order Comment: Luz men Type: BLOOD SPECIMENOrdering Facility: [facility] Address: [address] [place] [address] Performed By: #### 2 4321-2 ####[facility]ATORYCLIA [id number] [address] Creatinine and Glomerular filtration rate.predicted panel (S/P/Bld) 10 mL/min/1.73m??? Low >=60 [facility] Comment on above: Order Comment: Luz vaughan Type: BLOOD SPECIMENOrdering Facility: [facility] Address: [address] [place] [address] Result Comment: Breanne mated Glomerular Filtration Rate [...] Performed By: #### 2 4321-2 ####[facility]ATORYCLIA [id number] [address] [place] Glucose [Mass/Vol] 128 mg/dL High 74-99 [facility] Comment on above: Order Comment: Brooksjonas vaughan Type: BLOOD SPECIMENOrdering Facility: [facility] Address: [address] [place] [address] Result Comment: The [place] [employer] Association (ADA) provides guidance for cutoff [...] Standards of Medical Care in Diabetes 2016, [place] [employer]. Diabetes Care. 2016.39(Suppl 1). Performed By: #### 2 4321-2 ####[facility]ATORYCLIA [id number] [address] STATES OF [facility] Potassium [Moles/Vol] 5.2 mmol/L High 3.7-5.1 [facility] Comment on above: Order Comment: Luz vaughan Type: BLOOD SPECIMENOrdering Facility: [facility] Address: [address] [place] [address] Performed By: #### 2 4321-2 ####[facility]ATORYCLIA [id number] [place] [address] [place] Sodium [Moles/Vol] 145 mmol/L High 136-144 [facility] Comment on above: Order Comment: Luz vaughan Type: BLOOD SPECIMENOrdering Facility: [facility] Address: [address] [place] [address] Performed By: #### 2 4321-2 ####[facility]ATORYCLIA [id number] [address] [place] Urea nitrogen [Mass/Vol] 85 mg/dL High 9-24 [facility] Comment on above: Order Comment: Luz vaughan Type: BLOOD SPECIMENOrdering Facility: [facility] Address: [address] [place] [address] Performed By: #### 2 4321-2 ####[facility]ATORYCLIA [id number] [address] [place] C3 SerPl-mCncon 07-11-2024 Complement C3 [Mass/Vol] 139 mg/dL Normal 86-166 [facility] Comment on above: Order Comment: Luz vaughan Type: BLOOD SPECIMENOrdering Facility: [facility] Address: [address] [place] [address] Performed By: #### 4 498-2, 4485-9, 28808-02 ####[facility] LABCLIA [id number] [place] [id number] [facility] [place] C4 SerPl-mCncon 07-11-2024 Complement C4 [Mass/Vol] 21 mg/dL Normal 13-46 [facility] Comment on above: Order Comment: Speci men Type: BLOOD SPECIMENOrdering Facility: [facility] Address: [address] [place] [address] Performed By: #### 4 498-2, 4485-9, 2884-05 ####[facility] LABCLIA [id number] [place] [address] [place] [facility] [place] CASE MGT INIT ASSESon 2024 CASE MGT INIT [facility] CBC panel Auto (Bld)on 07-11 Erythrocyte distribution width (RBC) [Ratio] 13.2 % Normal 11.5-15.0 [facility] Comment on above: Order Comment: Speci men Type: BLOOD SPECIMENOrdering Facility: [facility] Address: [address] [place] [address] Performed By: #### 5 8410-2 ####[facility]ATORYCLIA [id number] [address] [place] Hematocrit (Bld) [Volume fraction] 32.8 % Low 39.0-51.0 [facility] Comment on above: Order Comment: Speci men Type: BLOOD SPECIMENOrdering Facility: [facility] Address: [address] [place] [address] Performed By: #### 5 8410-2 ####[facility]ORATORYCLIA [id number] [place] [address] [place] Hemoglobin (Bld) [Mass/Vol] 10.8 g/dL Low 13.0-17.0 [facility] Comment on above: Order Comment: Speci men Type: BLOOD SPECIMENOrdering Facility: [facility] Address: [address] [place] [address] Performed By: #### 5 8410-2 ####[facility]ATORYCLIA [id number] [address] MCH (RBC) [Entitic mass] 28.9 pg Normal 26.0-34.0 [facility] Comment on above: Order Comment: Speci men Type: BLOOD SPECIMENOrdering Facility: [facility] Address: [address] [place] [address] Performed By: #### 5 8410-2 ####[facility]ATORYCLIA [id number] [address] MCHC (RBC) [Mass/Vol] 32.9 g/dL Normal 30.5-36.0 [facility] Comment on above: Order Comment: Speci men Type: BLOOD SPECIMENOrdering Facility: [facility] Address: [address] [place] [address] Performed By: #### 5 8410-2 ####[facility]ATORYCLIA [id number] [address] MCV (RBC) [Entitic vol] 87.7 fL Normal 80.0-100.0 [facility] Comment on above: Order Comment: Speci men Type: BLOOD SPECIMENOrdering Facility: [facility] Address: [address] [place] [address] Performed By: #### 5 8410-2 ####[facility]ATORYCLIA [id number] [address] Nucleated RBC (Bld) [#/Vol] 10*3/uL Normal <0.01 [facility] Comment on above: Order Comment: Speci men Type: BLOOD SPECIMENOrdering Facility: [facility] Address: [address] [place] [address] Performed By: #### 5 8410-2 ####[facility]ATORYCLIA [id number] [address] Platelet mean volume (Bld) [Entitic vol] 9.2 fL Normal 9.0-12.7 [facility] Comment on above: Order Comment: Speci men Type: BLOOD SPECIMENOrdering Facility: [facility] Address: [address] [place], [place] [address] Performed By: #### 5 8410-2 ####[facility]ATORYCLIA [id number] [address] [place] Platelets (Bld) [#/Vol] 248 10*3/uL Normal 150-400 [facility] Comment on above: Order Comment: Speci men Type: BLOOD SPECIMENOrdering Facility: [facility] Address: [address] [place] [address] Performed By: #### 5 8410-2 ####[facility]ATORYCLIA [id number] [place] [address] [place] RBC (Bld) [#/Vol] 3.74 10*6/uL Low 4.20-6.00 [facility] Comment on above: Order Comment: Speci men Type: BLOOD SPECIMENOrdering Facility: [facility] Address: [address] [place] [address] Performed By: #### 5 8410-2 ####[facility]ATORYCLIA [id number] [address] [place] WBC (Bld) [#/Vol] 5.12 10*3/uL Normal 3.70-11.00 [facility] Comment on above: Order Comment: Speci men Type: BLOOD SPECIMENOrdering Facility: [facility] Address: [address] [place] [address] Performed By: #### 5 8410-2 ####[facility]ORATORYCLIA [id number] [place] [id number] [facility] [place] CONSULTon 07-11-2024 CONSULT Normal [facility] Creat ?Tm Ur-mCncon 07-12-19 25 Creatinine (U) [Mass/Vol] 46.0 mg/dL Normal 20.0-300.0 [facility] Comment on above: Order Comment: Speci men Type: URINE SPECIMENOrdering Facility: [facility] Address: [address] [place] [address] Performed By: #### 3 5677-4, 2890-2, UACR, 39375-7, 22657-4 ####[facility] LABCLIA [id number] [address] [place] DNA ANTIBODY DS BLDon 2024 DNA ANTIBODY 9 IU/mL Normal <=200 [facility] Comment on above: Order Comment: Speci men Type: BLOOD SPECIMENOrdering Facility: [facility] Address: [address] [place] [address] Result Comment: Nega tive: <200 IU/mLEquivocal: 201-300 IU/mLModerate Positive: 301-800 IU/mLStrong Positive: >801 IU/mL Performed By: #### D NAAB ####[facility] LABCLIA [id number] [address] [place] DNA ANTIBODY QUALITATIVE INTERPRETATION Negative Normal Negative [facility] Comment on above: Order Comment: Speci men Type: BLOOD SPECIMENOrdering Facility: [facility] Address: [address] [place] [address] Performed By: #### D NAAB ####[facility] LABIA [id number] [place] [address] [place] GBM IGG AUTOANTIBODYon 07-11 GBM IGG AB, (BEAD) 0 AU/mL Normal 0-19 [facility] Comment on above: Order Comment: Speci men Type: BLOOD SPECIMENOrdering Facility: [facility] Address: [address] [place] [address] Result Comment: INTE RPRETIVE INFORMATION: GBM Ab, [...] confirmation and assessment of renal prognosis.Performed By: DELLA [id number] [place], [place] [address]Aouvcduwvf Director: Derian Moreno MD, PhDCLIA Number: [id number] Performed By: #### G [facility] ####[facility] [id number] [place] [address] HISTORY PHYSICALon HISTORY PHYSICAL Normal [facility] KAPPA/MEDELLIN,FREE,SERon 2024 Immunoglobulin light chains.kappa.free (S) [Mass/Vol] 81.2 mg/L High 3.3-19.4 [facility] Comment on above: Order Comment: Speci men Type: BLOOD SPECIMENOrdering Facility: [facility] Address: [address] [place] [address] Result Comment: Rare ly, increased serum free light chains levels may not be detected or accurately quantified due to prozone phenomenon or in high viscosity samples using this immunoturbidimetric assay. Correlation with other laboratory results and clinical findings is recommended.The Belcher Free Light Chain was performed using the Binding Site Optilite immunoturbidimetric method. Result obtained with different assay methods or kits cannot be used interchangeably. Performed By: #### K LFRS ####[facility] LABIA [id number] [place] [address] [place] Immunoglobulin light chains.kappa/Immunogl obulin light chains.lambda (S) [Mass ratio] 1.56 Normal 0.26-1.65 [facility] Comment on above: Order Comment: Speci men Type: BLOOD SPECIMENOrdering Facility: [facility] Address: [address] [place] [address] Performed By: #### K LFRS ####[facility] LABIA [id number] [place] [address] [place] Immunoglobulin light chains.lambda.free [Mass/Vol] 52.1 mg/L High 5.7-26.3 [facility] Comment on above: Order Comment: Speci men Type: BLOOD SPECIMENOrdering Facility: [facility] Address: [address] [place] [address] Result Comment: Rare ly, increased serum free [...] used interchangeably. Performed By: #### K LFRS ####[facility] LABCLIA [id number] [place] [address] [place] Osmolality Uron 07-11-2024 Osmolality (U) [Osmolality] 398 mosm/kg Normal 50-1200 [facility] Comment on above: Order Comment: Speci men Type: URINE SPECIMENOrdering Facility: [facility] Address: [address] [place] [address] Performed By: #### 2 695-5 ####[facility] LABCLIA [id number] [address] [place] PLA2R, IMMUNOFLUORESCENCE, S (REFLEX ONLY)on 07-11-2024 PLA2R, IMMUNOFLUORESCENCE, S Negative Normal Negative [facility] Comment on above: Order Comment: Speci men Type: BLOOD SPECIMENOrdering Facility: [facility] Address: [address] [place] [address] Result Comment: PLA2 R is Negative ADDITIONAL INFORMATION This test was developed and its performance characteristicsdetermined by [facility] in a manner consistent withCLIA requirements. This test has not been cleared orapproved by the U.S. Food and Drug Administration.Test Performed by:[facility] - [address] Director: Soy Loomis Ph.D.; CLIA# [id number] Performed By: #### P MNDCS, PLA2RI, THSD7A ####[facility] LABCLIA [id number] [place] [address] PRIMARY MEMBRANEOUS NEPHROPA THY DIAGNOSTIC CASCADE, SERon 07-11-2024 PHOSPHOLIPASE A2 RECEPTOR, FABIENNE, S <2 Normal [facility] Comment on above: Order Comment: Speci men Type: BLOOD SPECIMENOrdering Facility: [facility] Address: [address] [place] [address] Result Comment: ---- REFERENCE VALUE <14 RU/mL: Negative>=14 to <20 RU/mL: Borderline>=20 RU/mL: PositiveTest Performed by:[address] Director: Soy Loomis Ph.D.; CLIA# [id number] Performed By: #### P MNDCS, PLA2RI, THSD7A ####[facility] LABCLIA [id number] [place] [id number] PROTEIN ELECTROPHORESIS SERU M WITH TATIANA (P)on 07-11-2024 Albumin [Mass/Vol] 3.83 g/dL Normal 3.43-5.41 [facility] Comment on above: Order Comment: Speci men Type: BLOOD SPECIMENOrdering Facility: [facility] Address: [address] [place] [address] Performed By: #### L [id number] ####[facility] LABCLIA [id number] [place] [address] [place] Alpha 1 globulin Elph [Mass/Vol] 0.27 g/dL Normal 0.18-0.43 [facility] Comment on above: Order Comment: Speci men Type: BLOOD SPECIMENOrdering Facility: [facility] Address: [address] [place] [address] Performed By: #### L [id number] ####[facility] LABCLIA [id number] [place] [address] [place] Alpha 2 globulin Elph [Mass/Vol] 0.92 g/dL Normal 0.42-0.98 [facility] Comment on above: Order Comment: Speci men Type: BLOOD SPECIMENOrdering Facility: [facility] Address: [address] [place] [address] Performed By: #### L [id number] ####[facility] LABCLIA [id number] [address] [place] Beta globulin Elph [Mass/Vol] 0.69 g/dL Normal 0.61-1.17 [facility] Comment on above: Order Comment: Speci men Type: BLOOD SPECIMENOrdering Facility: [facility] Address: [address] [place] [address] Performed By: #### L [id number] ####[facility] LABCL[facility] [id number] [address], [place] [address] [place] COMMENT (SERUM PROT ELECTRO) Monoclonal Protein analysis (immunofixation) is not indicated. Normal [facility] Comment on above: Order Comment: Speci men Type: BLOOD SPECIMENOrdering Facility: [facility] Address: [address] [place] [address] Performed By: #### L [id number] ####[facility] LABCLIA [id number] [address] [place] Gamma globulin Elph [Mass/Vol] 0.48 g/dL Low 0.53-1.51 [facility] Comment on above: Order Comment: Speci men Type: BLOOD SPECIMENOrdering Facility: [facility] Address: [address] [place] [address] Performed By: #### L [id number] ####[facility] LABCLIA [id number] [place] [id number] [place] M-PROTEIN LOCATION Normal [facility] Comment on above: Order Comment: Speci men Type: BLOOD SPECIMENOrdering Facility: [facility] Address: [address] [place] [address] Result Comment: Not Applicable. Performed By: #### L [id number] ####[facility] LABCLIA [id number] [address] Protein Fractions [Interp] No definitive M protein is identified on protein electrophoresis. Normal No definitive M protein is identified on protein electrophore sis. [facility] Comment on above: Order Comment: Luz vaughan Type: BLOOD SPECIMENOrdering Facility: [facility] Address: [address] [place] [address] Performed By: #### L [id number] ####[facility] LABIA [id number] [address] Protein.monoclonal Elph [Mass/Vol] 0.00 g/dL Normal <=0.00 [facility] Comment on above: Order Comment: Luz vaughan Type: BLOOD SPECIMENOrdering Facility: [facility] Address: [address] [place] [address] Performed By: #### L [id number] ####[facility] LABUN[facility] [id number] [address] SPE STAFF REVIEW Reviewed by Sebas Ocampo MD, Ph.D ([id number]) Normal [facility] Comment on above: Order Comment: Luz vaughan Type: BLOOD SPECIMENOrdering Facility: [facility] Address: [address] [place] [address] Performed By: #### L [id number] ####[facility] LABUN[facility] [id number] [address] [place] PT panel Coag (PPP)on 2024 INR Coag (PPP) [Relative time] 0.9 {INR} Normal 0.9-1.3 [facility] Comment on above: Order Comment: Luz clement Type: BLOOD SPECIMENOrdering Facility: [facility] Address: [address] [place] [address] Result Comment: Melissa min K Antagonist (VKA) Therapeutic Range: INR 2 to 3 (Target INR of 2.5)Note: For patients treated with VKA drugs, such as warfarin, the [place] [employer] 2012 Guideline recommends [...] al. Chest 2012, 141:7S-47SNishimura RA, et al. [facility] 2017, 70: 252-289 Performed By: #### 3 4528-0 ####[facility] LABORATORYCLIA [id number] [place] [address] [place] PT Coag (PPP) [Time] 10.3 s Normal 9.7-13.0 [facility] Comment on above: Order Comment: Speci men Type: BLOOD SPECIMENOrdering Facility: [facility] Address: [address] [place] [address] Performed By: #### 3 4528-0 ####[facility] LABORATORYCLIA [id number] [place] [address] [place] Potassium ?Tm Ur-sCncon 07-02 Potassium Unsp time (U) [Moles/Vol] 21.5 mmol/L Normal 10.0-160.0 [facility] Comment on above: Order Comment: Speci men Type: URINE SPECIMENOrdering Facility: [facility] Address: [address] [place] [address] Performed By: #### 3 5677-4, 2890-2, UACR, 34216-5, 36768-5 ####[facility] LABCLIA [id number] [place] [address] [place] Prot SerPl-mCncon 07-11-2024 Protein [Mass/Vol] 6.2 g/dL Low 6.3-8.0 [facility] Comment on above: Order Comment: Speci men Type: BLOOD SPECIMENOrdering Facility: [facility] Address: [address] [place] [address] Performed By: #### 4 498-2, 4485-9, 2885-2 ####[facility] [id number] [place] [id number] [place] Prot/Creat Uron 07-11-2024 Protein/Creatinine (U) [Mass ratio] 7.24 mg/mg High <0.15 [facility] Comment on above: Order Comment: Speci men Type: URINE SPECIMENOrdering Facility: [facility] Address: [address] [place] [address] Result Comment: Adul t Proteinuria Categories:<0.15 mg/mg is considered normal to mildly increased0.15 - 0.50 mg/mg is considered moderately increased>0.50 mg/mg is considered severely increasedKDIGO. (2013). KDIGO 2012 Clinical Practice Guideline for the Evaluation and Management of Chronic Kidney Disease. Official Journal of the International Society of Nephrology, 3(1), 1-150. Performed By: #### 3 5677-4, 2890-2, UACR, 93578-3, 64026-8 ####[facility] [id number] [place] [id number] [place] Protein/Creatinine (U) [Mass ratio]on 07-11-2024 Protein (U) [Mass/Vol] 333 mg/dL High 0-20 [facility] Comment on above: Order Comment: Speci men Type: URINE SPECIMENOrdering Facility: [facility] Address: [address] [place] [address] Performed By: #### 3 5677-4, 2890-2, UACR, 93542-1, 44215-7 ####[facility] [id number] [place] [id number] [place] Sodium ?Tm Ur-sCncon 025 Sodium Unsp time (U) [Moles/Vol] 86 mmol/L Normal 14-216 [facility] Comment on above: Order Comment: Speci men Type: URINE SPECIMENOrdering Facility: [facility] Address: [address] [place] [address] Performed By: #### 3 5677-4, 2890-2, [facility], 53721-2, 82727-5 ####[facility] LABCLIA [id number] [place] [facility]ENT[facility]manuel [address] [place] THERAPY NTon 07-11-2024 THERAPY NT Normal [facility] THERAPY NT Normal [facility] THERAPY NT Normal [facility] THSD7A AB, S (REFLEX ONLY)on 07-11-2024 THSD7A AB, S Negative Normal Negative [facility] Comment on above: Order Comment: Speci men Type: BLOOD SPECIMENOrdering Facility: [facility] Address: [address] [address] Result Comment: ---- ADDITIONAL INFORMATION This test was developed and its performance characteristicsdetermined by [facility] in a manner consistent withCLIA requirements. This test has not been cleared orapproved by the U.S. Food and Drug Administration.Test Performed by:[facility] - [address] Director: Soy Loomis Ph.D.; CLIA# [id number] Performed By: #### P MNDCS, PLA2RI, THSD7A ####[facility] LABCLIA [id number] [place] [id number] Urinalysis complete panel (U )on 07-11-2024 Bilirubin Ql (U) Negative Normal Negative [facility] Comment on above: Order Comment: Speci men Type: URINE SPECIMENOrdering Facility: [facility] Address: [address] [place] [id number] Performed By: #### 2 4356-8 ####[facility]ORATORYCLIA [id number] [place] [address] [place] Clarity (Unsp spec) Clear Normal Clear [facility] Comment on above: Order Comment: Speci men Type: URINE SPECIMENOrdering Facility: [facility] Address: [address] [place] [id number] Performed By: #### 2 4356-8 ####[facility] LABORATORYCLIA [id number] [place] [address] [place] Color (U) Yellow Normal Yellow [facility] Comment on above: Order Comment: Speci men Type: URINE SPECIMENOrdering Facility: [facility] Address: [address] [place] [address] Performed By: #### 2 4356-8 ####[facility] LABORATORYCLIA [id number] [place] [address] [place] Epithelial cells LM.HPF (Urine sed) [#/Area] Few Normal [facility] Comment on above: Order Comment: Speci men Type: URINE SPECIMENOrdering Facility: [facility] Address: [address] [place] [address] Performed By: #### 2 4356-8 ####[facility] LABORATORYCLIA [id number] [address] [place] Glucose Test strip (U) [Mass/Vol] 2+ Abnormal Negative [facility] Comment on above: Order Comment: Speci men Type: URINE SPECIMENOrdering Facility: [facility] Address: [address] [place] [address] Performed By: #### 2 4356-8 ####[facility] LABORATORYCLIA [id number] [address] [place] Hemoglobin Ql (U) 1+ Abnormal Negative [facility] Comment on above: Order Comment: Speci men Type: URINE SPECIMENOrdering Facility: [facility] Address: [address] [place] [address] Performed By: #### 2 4356-8 ####[facility] LABORATORYCLIA [id number] [place] [address] [place] Ketones Ql (U) Negative Normal Negative [facility] Comment on above: Order Comment: Speci men Type: URINE SPECIMENOrdering Facility: [facility] Address: [address] [place] [address] Performed By: #### 2 4356-8 ####[facility] LABORATORYCLIA [id number] [address] [place] Leukocyte esterase Test strip Ql (U) Negative Normal Negative [facility] Comment on above: Order Comment: Speci men Type: URINE SPECIMENOrdering Facility: [facility] Address: [address] [place] [address] Performed By: #### 2 4356-8 ####[facility] LABORATORYCLIA [id number] [place] [address] [place] Nitrite Ql (U) Negative Normal Negative [facility] Comment on above: Order Comment: Speci men Type: URINE SPECIMENOrdering Facility: [facility] Address: [address] [place] [address] Performed By: #### 2 4356-8 ####[facility] LABORATORYCLIA [id number] [place] [address] [place] pH (U) 6.0 [pH] Normal 5.0-8.0 [facility] Comment on above: Order Comment: Speci men Type: URINE SPECIMENOrdering Facility: [facility] Address: [address] [place] [address] Performed By: #### 2 4356-8 ####[facility] LABORATORYCLIA [id number] [place] [address] [place] Protein (U) [Mass/Vol] 3+ Abnormal Negative [facility] Comment on above: Order Comment: Speci men Type: URINE SPECIMENOrdering Facility: [facility] Address: [address] [place] [address] Performed By: #### 2 4356-8 ####[facility] LABORATORYCLIA [id number] [place] [address] [place] RBC LM.HPF (Urine sed) [#/Area] 0-3 /HPF Normal 0-3 /HPF [facility] Comment on above: Order Comment: Speci men Type: URINE SPECIMENOrdering Facility: [facility] Address: [address] [place] [address] Performed By: #### 2 4356-8 ####[facility] LABORATORYCLIA [id number] [place] [address] [place] Specific gravity (U) [Rel density] 1.020 Normal 1.005-1.030 [facility] Comment on above: Order Comment: Speci men Type: URINE SPECIMENOrdering Facility: [facility] Address: [address] [place] [address] Performed By: #### 2 4356-8 ####[facility] LABORATORYCLIA [id number] [place] [address] [place] Urobilinogen Ql (U) 0.2 EU/dL Normal 0.2-1.0 EU/dL [facility] Comment on above: Order Comment: Speci men Type: URINE SPECIMENOrdering Facility: [facility] Address: [address] [place] [address] Performed By: #### 2 4356-8 ####[facility] LABORATORYCLIA [id number] [place] [address] [place] WBC LM.HPF (Urine sed) [#/Area] 0-5 /HPF Normal 0-5 /HPF [facility] Comment on above: Order Comment: Speci men Type: URINE SPECIMENOrdering Facility: [facility] Address: [address] [place] [address] Performed By: #### 2 4356-8 ####[facility] LABORATORYCLIA [id number] [place] [address] [place] ALLIED HEALTHon 07-10-2024 ALLIED HEALTH Normal [facility] ALLIED HEALTH Normal [facility] Basic metabolic 2000 panelon 07-10-2024 Anion gap [Moles/Vol] 13 mmol/L Normal 8-15 [facility] Comment on above: Order Comment: Speci men Type: BLOOD SPECIMENOrdering Facility: [facility] Address: [address] [place] [address] Performed By: #### 2 4321-2 ####[facility] LABORATORYCLIA [id number] [place] [address] [place] Calcium [Mass/Vol] 8.6 mg/dL Normal 8.5-10.2 [facility] Comment on above: Order Comment: Speci men Type: BLOOD SPECIMENOrdering Facility: [facility] Address: [address] [place] [address] Performed By: #### 2 4321-2 ####[facility] LABORATORYCLIA [id number] [address] [place] Chloride [Moles/Vol] 107 mmol/L Normal 98-107 [facility] Comment on above: Order Comment: Speci men Type: BLOOD SPECIMENOrdering Facility: [facility] Address: [address] [place] [address] Performed By: #### 2 4321-2 ####[facility] LABORATORYCLIA [id number] [address] [place] CO2 [Moles/Vol] 22 mmol/L Normal 22-30 [facility] Comment on above: Order Comment: Luz men Type: BLOOD SPECIMENOrdering Facility: [facility] Address: [address] [place] [address] Performed By: #### 2 4321-2 ####[facility] LABORATORYCLIA [id number] [address] Creatinine [Mass/Vol] 6.19 mg/dL High 0.73-1.22 [facility] Comment on above: Order Comment: Speci men Type: BLOOD SPECIMENOrdering Facility: [facility] Address: [address] [place] [address] Performed By: #### 2 4321-2 ####[facility] LABORATORYCLIA [id number] [address] Creatinine and Glomerular filtration rate.predicted panel (S/P/Bld) 9 mL/min/1.73m??? Low >=60 [facility] Comment on above: Order Comment: Luz clement Type: BLOOD SPECIMENOrdering Facility: [facility] Address: [address] [place] [address] Result Comment: Breanne mated Glomerular Filtration Rate [...] Performed By: #### 2 4321-2 ####[facility] LABORATORYCLIA [id number] [place] [address] [place] Glucose [Mass/Vol] 130 mg/dL High 74-99 [facility] Comment on above: Order Comment: Speci men Type: BLOOD SPECIMENOrdering Facility: [facility] Address: [address] [place], [place] [id number] Result Comment: The [place] [employer] (ADA) provides guidance for cutoff [...] Standards of Medical Care in Diabetes 2016, [place] [employer]. Diabetes Care. 2016.39(Suppl 1). Performed By: #### 2 4321-2 ####[facility] LABORATORYCLIA [id number] [place] [address] [place] Potassium [Moles/Vol] 4.7 mmol/L Normal 3.7-5.1 [facility] Comment on above: Order Comment: Luz clement Type: BLOOD SPECIMENOrdering Facility: [facility] Address: [address] [place] [address] Performed By: #### 2 4321-2 ####[facility] LABORATORYCLIA [id number] [place] [address] [place] Sodium [Moles/Vol] 142 mmol/L Normal 136-144 [facility] Comment on above: Order Comment: Brooksi men Type: BLOOD SPECIMENOrdering Facility: [facility] Address: [address] [place], [place] [address] Performed By: #### 2 4321-2 ####[facility] LABORATORYCLIA [id number] [place] [address] [place] Urea nitrogen [Mass/Vol] 78 mg/dL High 9-24 [facility] Comment on above: Order Comment: Brooksi men Type: BLOOD SPECIMENOrdering Facility: [facility] Address: [address] [place] [address] Performed By: #### 2 4321-2 ####[facility] LABORATORYCLIA [id number] [place] [address] [place] CBC W Auto Differential pane l (Bld)on 07-10-2024 Basophils (Bld) [#/Vol] 10*3/uL Normal <0.11 [facility] Comment on above: Order Comment: Speci men Type: BLOOD SPECIMENOrdering Facility: [facility] Address: [address] [place] [address] Performed By: #### 5 7021-8 ####[facility] LABORATORYCLIA [id number] [address] [place] Basophils/100 WBC (Bld) 0.2 % Normal [facility] Comment on above: Order Comment: Speci men Type: BLOOD SPECIMENOrdering Facility: [facility] Address: [address] [place] [address] Performed By: #### 5 7021-8 ####[facility] LABORATORYCLIA [id number] [address] [place] Differential cell count method Nom (Bld) Auto Normal [facility] Comment on above: Order Comment: Speci men Type: BLOOD SPECIMENOrdering Facility: [facility] Address: [address] [place] [address] Performed By: #### 5 7021-8 ####[facility] LABORATORYCLIA [id number] [place] [address] [place] Eosinophils (Bld) [#/Vol] 0.24 10*3/uL Normal <0.46 [facility] Comment on above: Order Comment: Speci men Type: BLOOD SPECIMENOrdering Facility: [facility] Address: [address] [place] [address] Performed By: #### 5 7021-8 ####[facility] LABORATORYCLIA [id number] [address] [place] Eosinophils/100 WBC (Bld) 4.5 % Normal [facility] Comment on above: Order Comment: Speci men Type: BLOOD SPECIMENOrdering Facility: [facility] Address: [address] [place] [address] Performed By: #### 5 7021-8 ####[facility] LABORATORYCLIA [id number] [place] [address] [place] Erythrocyte distribution width (RBC) [Ratio] 13.4 % Normal 11.5-15.0 [facility] Comment on above: Order Comment: Speci men Type: BLOOD SPECIMENOrdering Facility: [facility] Address: [address] [place] [address] Performed By: #### 5 7021-8 ####[facility] LABORATORYCLIA [id number] [place] [address] [place] Hematocrit (Bld) [Volume fraction] 35.6 % Low 39.0-51.0 [facility] Comment on above: Order Comment: Speci men Type: BLOOD SPECIMENOrdering Facility: [facility] Address: [address] [place] [address] Performed By: #### 5 7021-8 ####[facility] LABORATORYCLIA [id number] [place] [address] [place] Hemoglobin (Bld) [Mass/Vol] 11.7 g/dL Low 13.0-17.0 [facility] Comment on above: Order Comment: Speci men Type: BLOOD SPECIMENOrdering Facility: [facility] Address: [address] [place] [address] Performed By: #### 5 7021-8 ####[facility] LABORATORYCLIA [id number] [place] [address] [place] Immature granulocytes (Bld) [#/Vol] 0.03 10*3/uL Normal <0.10 [facility] Comment on above: Order Comment: Speci men Type: BLOOD SPECIMENOrdering Facility: [facility] Address: [address] [place] [address] Performed By: #### 5 7021-8 ####[facility] LABORATORYCLIA [id number] [place] [address] [place] Immature granulocytes/100 WBC (Bld) 0.6 % Normal [facility] Comment on above: Order Comment: Speci men Type: BLOOD SPECIMENOrdering Facility: [facility] Address: [address] [place] [address] Performed By: #### 5 7021-8 ####[facility] LABORATORYCLIA [id number] [address] Lymphocytes (Bld) [#/Vol] 1.22 10*3/uL Normal 1.00-4.00 [facility] Comment on above: Order Comment: Speci men Type: BLOOD SPECIMENOrdering Facility: [facility] Address: [address] [place] [address] Performed By: #### 5 7021-8 ####[facility] LABORATORYCLIA [id number] [address] Lymphocytes/100 WBC (Bld) 22.9 % Normal [facility] Comment on above: Order Comment: Speci men Type: BLOOD SPECIMENOrdering Facility: [facility] Address: [address] [place] [address] Performed By: #### 5 7021-8 ####[facility] LABORATORYCLIA [id number] [address] MCH (RBC) [Entitic mass] 28.9 pg Normal 26.0-34.0 [facility] Comment on above: Order Comment: Speci men Type: BLOOD SPECIMENOrdering Facility: [facility] Address: [address] [place] [address] Performed By: #### 5 7021-8 ####[facility] LABORATORYCLIA [id number] [address] MCHC (RBC) [Mass/Vol] 32.9 g/dL Normal 30.5-36.0 [facility] Comment on above: Order Comment: Speci men Type: BLOOD SPECIMENOrdering Facility: [facility] Address: [address] [place] [address] Performed By: #### 5 7021-8 ####[facility] LABORATORYCLIA [id number] [address] MCV (RBC) [Entitic vol] 87.9 fL Normal 80.0-100.0 [facility] Comment on above: Order Comment: Speci men Type: BLOOD SPECIMENOrdering Facility: [facility] Address: [address] [place] [address] Performed By: #### 5 7021-8 ####[facility] LABORATORYCLIA [id number] [address] [place] Monocytes (Bld) [#/Vol] 0.54 10*3/uL Normal <0.87 [facility] Comment on above: Order Comment: Speci men Type: BLOOD SPECIMENOrdering Facility: [facility] Address: [address] [place] [address] Performed By: #### 5 7021-8 ####[facility] LABORATORYCLIA [id number] [address] Monocytes/100 WBC (Bld) 10.1 % Normal [facility] Comment on above: Order Comment: Speci men Type: BLOOD SPECIMENOrdering Facility: [facility] Address: [address] [place] [address] Performed By: #### 5 7021-8 ####[facility] LABORATORYCLIA [id number] [place] [address] [place] Neutrophils (Bld) [#/Vol] 3.29 10*3/uL Normal 1.45-7.50 [facility] Comment on above: Order Comment: Speci men Type: BLOOD SPECIMENOrdering Facility: [facility] Address: [address] [place] [address] Performed By: #### 5 7021-8 ####[facility] LABORATORYCLIA [id number] [address] [place] Neutrophils/100 WBC (Bld) 61.7 % Normal [facility] Comment on above: Order Comment: Speci men Type: BLOOD SPECIMENOrdering Facility: [facility] Address: [address] [place] [address] Performed By: #### 5 7021-8 ####[facility] LABORATORYCLIA [id number] [place] [address] [place] Nucleated RBC (Bld) [#/Vol] 10*3/uL Normal <0.01 [facility] Comment on above: Order Comment: Speci men Type: BLOOD SPECIMENOrdering Facility: [facility] Address: [address] [place] [address] Performed By: #### 5 7021-8 ####[facility] LABORATORYCLIA [id number] [place] [address] [place] Nucleated RBC/100 WBC (Bld) [Ratio] 0.0 /100 WBC Normal [facility] Comment on above: Order Comment: Speci men Type: BLOOD SPECIMENOrdering Facility: [facility] Address: [address] [place] [address] Performed By: #### 5 7021-8 ####[facility] LABORATORYCLIA [id number] [place] [address] [place] Platelet mean volume (Bld) [Entitic vol] 8.7 fL Low 9.0-12.7 [facility] Comment on above: Order Comment: Speci men Type: BLOOD SPECIMENOrdering Facility: [facility] Address: [address] [place] [address] Performed By: #### 5 7021-8 ####[facility] LABORATORYCLIA [id number] [place] [address] [place] Platelets (Bld) [#/Vol] 277 10*3/uL Normal 150-400 [facility] Comment on above: Order Comment: Speci men Type: BLOOD SPECIMENOrdering Facility: [facility] Address: [address] [place] [address] Performed By: #### 5 7021-8 ####[facility] LABORATORYCLIA [id number] [place] [address] [place] RBC (Bld) [#/Vol] 4.05 10*6/uL Low 4.20-6.00 [facility] Comment on above: Order Comment: Speci men Type: BLOOD SPECIMENOrdering Facility: [facility] Address: [address] [place] [address] [place] [address] Performed By: #### 5 7021-8 ####[facility] LABORATORYCLIA [id number] [place] [address] [place] WBC (Bld) [#/Vol] 5.33 10*3/uL Normal 3.70-11.00 [facility] Comment on above: Order Comment: Speci men Type: BLOOD SPECIMENOrdering Facility: [facility] Address: [address] [place] [address] Performed By: #### 5 7021-8 ####[facility] LABORATORYCLIA [id number] [place] [address] [place] [facility] [place] Comprehensive metabolic 2000 panelon 07-10-2024 Albumin [Mass/Vol] 3.5 g/dL Low 3.9-4.9 [facility] Comment on above: Order Comment: Speci men Type: BLOOD SPECIMENOrdering Facility: [facility] Address: [address] [place] [address] [place] [address] Performed By: #### 2 4323-8, ####[facility] LABORATORYCLIA [id number] [address] [place] ALP [Catalytic activity/Vol] 80 U/L Normal 38-113 [facility] Comment on above: Order Comment: Speci men Type: BLOOD SPECIMENOrdering Facility: [facility] Address: [address] [place] [address] Performed By: #### 2 4323-8, ####[facility] LABORATORYCLIA [id number] [address] [place] ALT [Catalytic activity/Vol] 10 U/L Normal 10-54 [facility] Comment on above: Order Comment: Speci men Type: BLOOD SPECIMENOrdering Facility: [facility] Address: [address] [place] [address] Performed By: #### 2 4323-8, ####[facility] LABORATORYCLIA [id number] [place] [address] [place] Anion gap [Moles/Vol] 14 mmol/L Normal 8-15 [facility] Comment on above: Order Comment: Speci men Type: BLOOD SPECIMENOrdering Facility: [facility] Address: [address] [place] [address] Performed By: #### 2 4323-8, ####[facility] LABORATORYCLIA [id number] [place] [address] [place] AST [Catalytic activity/Vol] 11 U/L Low 14-40 [facility] Comment on above: Order Comment: Speci men Type: BLOOD SPECIMENOrdering Facility: [facility] Address: [address] [place] [address] Performed By: #### 2 4323-8, ####[facility] LABORATORYCLIA [id number] [place] [address] [place] Bilirubin [Mass/Vol] 0.2 mg/dL Normal 0.2-1.3 [facility] Comment on above: Order Comment: Speci men Type: BLOOD SPECIMENOrdering Facility: [facility] Address: [address] [place] [address] Performed By: #### 2 432-8, ####[facility] LABORATORYCLIA [id number] [place] [address] [place] Calcium [Mass/Vol] 9.2 mg/dL Normal 8.5-10.2 [facility] Comment on above: Order Comment: Speci men Type: BLOOD SPECIMENOrdering Facility: [facility] Address: [address] [place] [address] Performed By: #### 2 432-8, ####[facility] LABORATORYCLIA [id number] [place] [address] [place] Chloride [Moles/Vol] 104 mmol/L Normal 98-107 [facility] Comment on above: Order Comment: Speci men Type: BLOOD SPECIMENOrdering Facility: [facility] Address: [address] [place] [address] Performed By: #### 2 432-8, ####[facility] LABORATORYCLIA [id number] [place] [address] [place] CO2 [Moles/Vol] 23 mmol/L Normal 22-30 [facility] Comment on above: Order Comment: Speci men Type: BLOOD SPECIMENOrdering Facility: [facility] Address: [address] [place] [address] Performed By: #### 2 432, ####[facility] LABORATORYCLIA [id number] [place] [address] [place] Creatinine [Mass/Vol] 6.77 mg/dL High 0.73-1.22 [facility] Comment on above: Order Comment: Luz vaughan Type: BLOOD SPECIMENOrdering Facility: [facility] Address: [address] [place] [address] Performed By: #### 2 4323-8, ####[facility] LABORATORYCLIA [id number] [place] [id number] [place] Creatinine and Glomerular filtration rate.predicted panel (S/P/Bld) 8 mL/min/1.73m??? Low >=60 [facility] Comment on above: Order Comment: Luz vaughan Type: BLOOD SPECIMENOrdering Facility: [facility] Address: [address] [place] [address] Result Comment: Breanne mated Glomerular Filtration Rate [...] Performed By: #### 2 4323-8, ####[facility] LABORATORYCLIA [id number] [place] [id number] [place] Glucose [Mass/Vol] 141 mg/dL High 74-99 [facility] Comment on above: Order Comment: Luz vaughan Type: BLOOD SPECIMENOrdering Facility: [facility] Address: [address] [place] [address] Result Comment: The [place] [employer] (ADA) provides guidance for cutoff [...] Standards of Medical Care in Diabetes 2016, [place] [employer]. Diabetes Care. 2016.39(Suppl 1). Performed By: #### 2 4322-11, ####[facility] LABORATORYCLIA [id number] [place] [address] [place] Potassium [Moles/Vol] 5.9 mmol/L High 3.7-5.1 [facility] Comment on above: Order Comment: Luz vaughan Type: BLOOD SPECIMENOrdering Facility: [facility] Address: [address] [place] [address] Performed By: #### 2 4322-11, ####[facility] LABORATORYCLIA [id number] [place] [address] [place] Protein [Mass/Vol] 6.5 g/dL Normal 6.3-8.0 [facility] Comment on above: Order Comment: Luz vaughan Type: BLOOD SPECIMENOrdering Facility: [facility] Address: [address] [place] [address] Performed By: #### 2 4322-11, ####[facility] LABORATORYCLIA [id number] [place] [address] [place] Sodium [Moles/Vol] 141 mmol/L Normal 136-144 [facility] Comment on above: Order Comment: Luz vaughan Type: BLOOD SPECIMENOrdering Facility: [facility] Address: [address] [place] [address] Performed By: #### 2 4322-11, ####[facility] LABORATORYCLIA [id number] [place] [address] [place] Urea nitrogen [Mass/Vol] 82 mg/dL High 9-24 [facility] Comment on above: Order Comment: Luz vaughan Type: BLOOD SPECIMENOrdering Facility: [facility] Address: [address] [place] [place] [id number] Performed By: #### 2 4322-11, ####ADK[facility] LABORATORYCLIA [id number] [place] [address] [facility] ED NOTEon 07-10-2024 ED NOTE HNO ID: [id number] Author: ART PAYNE, RN Service: ? Author Type: Registered Nurse Type: ED Notes Filed: 07/10/2024 20:41 Note Text: Heads up given to 3 [employer] [facility] ED NOTE HNO ID: [id number] Author: SANDRA WHITEHEAD, RN Service: Nursing Author Type: Registered Nurse Type: ED Notes Filed: 07/10/2024 16:25 Note Text: Patient speaking to virtual triage doctor [facility] ED PROV NOTEon 07-10-2024 ED PROV NOTE [facility] ED Triage Noteon 07-10-2024 ED Triage Note [facility] Magnesium SerPl-mCncon 07-10 Magnesium [Mass/Vol] 2.3 mg/dL Normal 1.7-2.3 [facility] Comment on above: Order Comment: Speci men Type: BLOOD SPECIMENOrdering Facility: [facility] Address: [address] [place] [address] Performed By: #### 2 4323-8, 04306-8 ####[facility] LABORATORYCLIA [id number] [place] [address] [facility] NURSING PROGon 07-10-2024 NURSING PROG [facility] US KIDNEY/BLADDERon 07-11-19 KIDNEY/BLADDER [facility] XR CHEST 2V FRONTAL/LATon XR CHEST 2V FRONTAL/LAT [facility] 36on 06-28-2024 36 S: Patient spoke wit h [facility] nurse regarding abnormal labs results being called by the [facility] [place] [facility]. Hx: DM B: Onset of symptoms/concern labs were drawn from the [place] office at his appointment on 06/27/24 having an urgent notification at 15:54 was seen in the office for a 2-month follow up A: Bun 79.9 CR 4.3 Potassium 7.1 R: Paging Dr. Scott at 3:55 No further needs at this time. Reason for Disposition Lab or radiology calling with test results Protocols used: PCP Call - [facility] ANES POSTPROC EVALon 025 ANES POSTPROC EVAL Normal [facility] ANES PRE-OPon 05-13-2024 ANES PRE-OP Normal [facility] Colonoscopy Study observatio non 05-13-2024 [facility] Gastrointestinal Endoscopy Patient Name: José Manuel Ashton Procedure Date: 05/13/2024 10:48 AM Date of : 1960 Admit Type: Outpatient Room: [place] [address] Gender: Male Note Status: Finalized Attending MD: Artem Ahmadi MD, [id number] Procedure: Colonoscopy Indications: High risk colon cancer [...] provided to (more content not included)... [employer] [facility] Radiology Study observation (narrative) [facility] HISTORY PHYSICALon HISTORY PHYSICAL Normal [facility] Pathology biopsy report Kade (Tiss)on 05-13-2024 CASE REPORT Normal [facility] Comment on above: Order Comment: Speci men Type: TISSUE SPECIMENOrdering Facility: [facility] Address: [address] [place] [address] Result Comment: Surg ica Pathology Report Case: [id number] Provider: Artem Ahmadi MD Collected: 05/13/2024 11:27 AMOrdering Location: [facility] Received: 05/14/2024 08:40 AMPathologist: Machelle Ignacio MDSpecimens: A) - Colon, Transverse, Polyp, x 3 B) - Colon, Cecum, Polyp, x 2 C) - Colon, Hepatic Flexure, Polyp D) - Rectum, Polyp Performed By: #### 6 6121-5 ####[facility] LABORATORYCLIA [id number] [address] DIAGNOSIS COMMENT In parts "B" and "C" multiple additional deeper levels have been examined. [facility] Comment on above: Order Comment: Speci men Type: TISSUE SPECIMENOrdering Facility: [facility] Address: [address] [place] [address] Performed By: #### 6 6121-5 ####[facility] LABORATORYCLIA [id number] [address] FINAL DIAGNOSIS [facility] Comment on above: Order Comment: Speci men Type: TISSUE SPECIMENOrdering Facility: [facility] Address: [address] [place] [address] Result Comment: A. T ransverse colon polyp (x3), polypectomy:-- Fragments of tubular adenoma.B. Cecum colon polyp (x2), polypectomy:-- Tubular adenoma, see comment.C. Hepatic flexure polyp, polypectomy:-- Polypoid fragment of colonic mucosa with no significant histopathologic abnormalities, see comment.D. Rectum polyp, polypectomy:-- Tubular adenoma. at 1506 EST Performed By: #### 6 6121-5 ####[facility] LABORATORYCLIA [id number] [address] FINAL PERFORMING LAB [facility] Comment on above: Order Comment: Speci men Type: TISSUE SPECIMENOrdering Facility: [facility] Address: [address] [place] [address] Result Comment: Diag nostic interpretation performed at: [facility], [address] [address] CLIA# [id number] Director: Kahlil Lewis MD Performed By: #### 6 6121-5 ####[facility] LABORATORYCLIA [id number] [address] GROSS DESCRIPTION [facility] Comment on above: Order Comment: Speci men Type: TISSUE SPECIMENOrdering Facility: [facility] Address: [address] [place] [address] Result Comment: A. C olon, Transverse, PolypReceived [...] submitted entirely in D1.Gross examination performed at [facility], [address] [place] [address] CLIA#[id number] May 14, 2024 2:55 PM Performed By: #### 6 6121-5 ####[facility] LABORATORYCLIA [id number] [place] [address] [place] VENOUS BLOOD GAS, POC (AK, ,MR)on 05-13-2024 Base Excess (POCT) -5 mmol/L Abnormal -2 - 3 mmol/L [facility] CO2 [Moles/Vol] 23 mmol/L Abnormal 24 - 29 mmol/L [facility] Glucose [Mass/Vol] 128 mg/dL Abnormal 70 - 105 mg/dL [facility] HCO3 (Bld) [Moles/Vol] 22.1 mmol/L Abnormal 23.0 - 28.0 mmol/L [facility] Hematocrit (Bld) [Volume fraction] 34 % Abnormal [facility] Hemoglobin (Bld) [Mass/Vol] 11.6 g/dL Abnormal 12.0 - 17.0 g/dL [facility] Interpretation and review of laboratory results Abnormal [facility] Ionized Ca (POCT) 1.28 mmol/L 1.12 - 1.3 2 mmol/L [facility] pCO2,Venous(POCT) 46.4 [facility] pH,Venous(POCT) 7.286 Abnormal [facility] pO2,Venous(POCT) [facility] Potassium [Moles/Vol] 4.4 mmol/L 3.5 - 4.9 mmol/L [facility] Pt Note NEW UNIT CHANGE iCa: md/dL to mmol/L starting 09/30 [facility] sO2 (POCT) <> 60 - 85 % [facility] Sodium [Moles/Vol] 144 mmol/L 138 - 146 mmol/L [facility] Meter ID:[id number] Location:[facility], [address] [place] [address], [address] [place] [address] POINT OF CARE [facility] 36on 04-27-2024 36 S: Patient's sister (Janell) [...] to answer question Protocols used: Medication Question Ticj-HZWBM-LE Normal [facility] Basic metabolic 2000 panelon 04-26-2024 Anion gap [Moles/Vol] 11 mmol/L Normal 8-15 [facility] Comment on above: Order Comment: Luz vaugahn Type: BLOOD SPECIMENOrdering Facility: External Submitter Address: , , Performed By: #### 1 988-5, 62029-8 ####[facility] LABORATORYCLIA [id number] [place] [address] [place] Calcium [Mass/Vol] 9.4 mg/dL Normal 8.5-10.2 [facility] Comment on above: Order Comment: Luz vaughan Type: BLOOD SPECIMENOrdering Facility: External Submitter Address: , , Performed By: #### 1 988-5, ####[facility] LABORATORYCLIA [id number] [address] Chloride [Moles/Vol] 108 mmol/L High 98-107 [facility] Comment on above: Order Comment: Luz vaughan Type: BLOOD SPECIMENOrdering Facility: External Submitter Address: , , Performed By: #### 1 988-5, ####[facility] LABORATORYCLIA [id number] [address] CO2 [Moles/Vol] 22 mmol/L Normal 22-30 [facility] Comment on above: Order Comment: Luz vaughan Type: BLOOD SPECIMENOrdering Facility: External Submitter Address: , , Performed By: #### 1 988-5, ####[facility] LABORATORYCLIA [id number] [address] Creatinine [Mass/Vol] 3.41 mg/dL High 0.73-1.22 [facility] Comment on above: Order Comment: Luz vaughan Type: BLOOD SPECIMENOrdering Facility: External Submitter Address: , , Performed By: #### 1 988-5, ####[facility] LABORATORYCLIA [id number] [address] Creatinine and Glomerular filtration rate.predicted panel (S/P/Bld) 19 mL/min/1.73m??? Low >=60 [facility] Comment on above: Order Comment: Luz vaughan [...] actual GFR. Performed By: #### 1 988-5, 32745-5 ####[facility] LABORATORYCLIA [id number] [address] Glucose [Mass/Vol] 128 mg/dL High 74-99 [facility] Comment on above: Order Comment: Luz vaughan Type: BLOOD SPECIMENOrdering Facility: External Submitter Address: , , Result Comment: The [place] [employer] (ADA) provides guidance for cutoff [...] Standards of Medical Care in Diabetes 2016, [place] [employer]. Diabetes Care. 2016.39(Suppl 1). Performed By: #### 1 988-5, ####[facility] LABORATORYCLIA [id number] [address] Potassium [Moles/Vol] 6.2 mmol/L Critically high 3.7-5.1 [facility] Comment on above: Order Comment: Luz vaughan Type: BLOOD SPECIMENOrdering Facility: External Submitter Address: , , Performed By: #### 1 988-5, ####[facility] LABORATORYCLIA [id number] [address] Sodium [Moles/Vol] 141 mmol/L Normal 136-144 [facility] Comment on above: Order Comment: Luz vaughan Type: BLOOD SPECIMENOrdering Facility: External Submitter Address: , , Performed By: #### 1 988-5, ####[facility] LABORATORYCLIA [id number] [address] [place] Urea nitrogen [Mass/Vol] 59 mg/dL High 9-24 [facility] Comment on above: Order Comment: Luz vaughan Type: BLOOD SPECIMENOrdering Facility: External Submitter Address: , , Performed By: #### 1 988-5, ####[facility] LABORATORYCLIA [id number] [place] [address] [place] CBC W Auto Differential pane l (Bld)on 04-26-2024 Basophils (Bld) [#/Vol] 10*3/uL Normal <0.11 [facility] Comment on above: Order Comment: Speci men Type: BLOOD SPECIMENOrdering Facility: [facility] Address: [address] [place] [address] Performed By: #### 5 7021-8 ####ADK[facility] LABORATORYCLIA [id number] [place] [address] [place] Basophils/100 WBC (Bld) 0.3 % Normal [facility] Comment on above: Order Comment: Speci men Type: BLOOD SPECIMENOrdering Facility: [facility] Address: [address] [place] [address] Performed By: #### 5 7021-8 ####AD[facility] LABORATORYCLIA [id number] [place] [address] [place] Differential cell count method Nom (Bld) Auto Normal [facility] Comment on above: Order Comment: Speci men Type: BLOOD SPECIMENOrdering Facility: [facility] Address: [address] [place] [address] Performed By: #### 5 7021-8 ####[facility] LABORATORYCLIA [id number] [place] [address] [place] Eosinophils (Bld) [#/Vol] 0.25 10*3/uL Normal <0.46 [facility] Comment on above: Order Comment: Speci men Type: BLOOD SPECIMENOrdering Facility: [facility] Address: [address] [place] [address] Performed By: #### 5 7021-8 ####[facility] LABORATORYCLIA [id number] [place] [address] [place] Eosinophils/100 WBC (Bld) 4.3 % Normal [facility] Comment on above: Order Comment: Speci men Type: BLOOD SPECIMENOrdering Facility: [facility] Address: [address] [place] [address] Performed By: #### 5 7021-8 ####[facility] LABORATORYCLIA [id number] [address] [place] Erythrocyte distribution width (RBC) [Ratio] 14.0 % Normal 11.5-15.0 [facility] Comment on above: Order Comment: Speci men Type: BLOOD SPECIMENOrdering Facility: [facility] Address: [address] [place] [address] Performed By: #### 5 7021-8 ####[facility] LABORATORYCLIA [id number] [place] [address] [place] Hematocrit (Bld) [Volume fraction] 34.2 % Low 39.0-51.0 [facility] Comment on above: Order Comment: Speci men Type: BLOOD SPECIMENOrdering Facility: [facility] Address: [address] [place] [address] Performed By: #### 5 7021-8 ####[facility] LABORATORYCLIA [id number] [place] [address] [place] Hemoglobin (Bld) [Mass/Vol] 11.0 g/dL Low 13.0-17.0 [facility] Comment on above: Order Comment: Speci men Type: BLOOD SPECIMENOrdering Facility: [facility] Address: [address] [place] [address] Performed By: #### 5 7021-8 ####[facility] LABORATORYCLIA [id number] [address] [place] Immature granulocytes (Bld) [#/Vol] 0.03 10*3/uL Normal <0.10 [facility] Comment on above: Order Comment: Speci men Type: BLOOD SPECIMENOrdering Facility: [facility] Address: [address] [place] [address] Performed By: #### 5 7021-8 ####[facility] LABORATORYCLIA [id number] [address] [place] Immature granulocytes/100 WBC (Bld) 0.5 % Normal [facility] Comment on above: Order Comment: Speci men Type: BLOOD SPECIMENOrdering Facility: [facility] Address: [address] [place] [address] Performed By: #### 5 7021-8 ####[facility] LABORATORYCLIA [id number] [place] [address] [place] [facility] [place] Lymphocytes (Bld) [#/Vol] 1.35 10*3/uL Normal 1.00-4.00 [facility] Comment on above: Order Comment: Speci men Type: BLOOD SPECIMENOrdering Facility: [facility] Address: [address] [place] [address] Performed By: #### 5 7021-8 ####[facility] LABORATORYCLIA [id number] [address] Lymphocytes/100 WBC (Bld) 23.4 % Normal [facility] Comment on above: Order Comment: Speci men Type: BLOOD SPECIMENOrdering Facility: [facility] Address: [address] [place] [address] Performed By: #### 5 7021-8 ####[facility] LABORATORYCLIA [id number] [address] MCH (RBC) [Entitic mass] 28.5 pg Normal 26.0-34.0 [facility] Comment on above: Order Comment: Speci men Type: BLOOD SPECIMENOrdering Facility: [facility] Address: [address] [place] [address] Performed By: #### 5 7021-8 ####[facility] LABORATORYCLIA [id number] [address] [place] MCHC (RBC) [Mass/Vol] 32.2 g/dL Normal 30.5-36.0 [facility] Comment on above: Order Comment: Speci men Type: BLOOD SPECIMENOrdering Facility: [facility] Address: [address] [place] [address] Performed By: #### 5 7021-8 ####[facility] LABORATORYCLIA [id number] [address] MCV (RBC) [Entitic vol] 88.6 fL Normal 80.0-100.0 [facility] Comment on above: Order Comment: Speci men Type: BLOOD SPECIMENOrdering Facility: [facility] Address: [address] [place] [address] Performed By: #### 5 7021-8 ####[facility] LABORATORYCLIA [id number] [place] [address] [place] Monocytes (Bld) [#/Vol] 0.52 10*3/uL Normal <0.87 [facility] Comment on above: Order Comment: Speci men Type: BLOOD SPECIMENOrdering Facility: [facility] Address: [address] [place] [address] Performed By: #### 5 7021-8 ####[facility] LABORATORYCLIA [id number] [address] [place] Monocytes/100 WBC (Bld) 9.0 % Normal [facility] Comment on above: Order Comment: Speci men Type: BLOOD SPECIMENOrdering Facility: [facility] Address: [address] [place] [address] Performed By: #### 5 7021-8 ####[facility] LABORATORYCLIA [id number] [place] [address] [place] Neutrophils (Bld) [#/Vol] 3.61 10*3/uL Normal 1.45-7.50 [facility] Comment on above: Order Comment: Speci men Type: BLOOD SPECIMENOrdering Facility: [facility] Address: [address] [place] [address] Performed By: #### 5 7021-8 ####[facility] LABORATORYCLIA [id number] [address] [place] Neutrophils/100 WBC (Bld) 62.5 % Normal [facility] Comment on above: Order Comment: Speci men Type: BLOOD SPECIMENOrdering Facility: [facility] Address: [address] [place] [address] Performed By: #### 5 7021-8 ####[facility] LABORATORYCLIA [id number] [place] [address] [place] Nucleated RBC (Bld) [#/Vol] 10*3/uL Normal <0.01 [facility] Comment on above: Order Comment: Speci men Type: BLOOD SPECIMENOrdering Facility: [facility] Address: [address] [place] [address] Performed By: #### 5 7021-8 ####[facility] LABORATORYCLIA [id number] [place] [address] [place] Nucleated RBC/100 WBC (Bld) [Ratio] 0.0 /100 WBC Normal [facility] Comment on above: Order Comment: Speci men Type: BLOOD SPECIMENOrdering Facility: [facility] Address: [address] [place] [address] Performed By: #### 5 7021-8 ####[facility] LABORATORYCLIA [id number] [place] [address] [place] Platelet mean volume (Bld) [Entitic vol] 9.5 fL Normal 9.0-12.7 [facility] Comment on above: Order Comment: Speci men Type: BLOOD SPECIMENOrdering Facility: [facility] Address: [address] [place] [address] Performed By: #### 5 7021-8 ####[facility] LABORATORYCLIA [id number] [place] [address] [place] Platelets (Bld) [#/Vol] 256 10*3/uL Normal 150-400 [facility] Comment on above: Order Comment: Speci men Type: BLOOD SPECIMENOrdering Facility: [facility] Address: [address] [place] [address] Performed By: #### 5 7021-8 ####[facility] LABORATORYCLIA [id number] [place] [address] [place] RBC (Bld) [#/Vol] 3.86 10*6/uL Low 4.20-6.00 [facility] Comment on above: Order Comment: Speci men Type: BLOOD SPECIMENOrdering Facility: [facility] Address: [address] [place] [address] Performed By: #### 5 7021-8 ####[facility] LABORATORYCLIA [id number] [place] [address] [place] WBC (Bld) [#/Vol] 5.78 10*3/uL Normal 3.70-11.00 [facility] Comment on above: Order Comment: Speci men Type: BLOOD SPECIMENOrdering Facility: [facility] Address: [address] [place] [address] Performed By: #### 5 7021-8 ####[facility] LABORATORYCLIA [id number] [address] [place] CRP SerPl-mCncon 04-26-2024 CRP [Mass/Vol] mg/L Normal <0.9 [facility] Comment on above: Order Comment: Speci men Type: BLOOD SPECIMENOrdering Facility: [facility] Address: [address] [place] [address] Performed By: #### 1 988-5, 51368-5 ####[facility] LABORATORYCLIA [id number] [address] [place] ESR Westergren method (Bld) [Velocity]on 04-26-2024 ESR (Bld) [Velocity] 27 mm/h High 0-15 [facility] Comment on above: Order Comment: Speci men Type: BLOOD SPECIMENOrdering Facility: [facility] Address: [address] [place] [address] Performed By: #### 4 537-7 ####[facility] LABCLIA [id number] [place] [id number] [facility] [place] PROTEIN ELECTROPHORESIS SERU M (P)on 04-26-2024 Albumin [Mass/Vol] 3.47 g/dL Normal 3.43-5.41 [facility] Comment on above: Order Comment: Speci men Type: BLOOD SPECIMENOrdering Facility: [facility] Address: [address] [place] [address] Performed By: #### L [id number] ####[facility] LABCLIA [id number] [address] [address] [place] Alpha 1 globulin Elph [Mass/Vol] 0.31 g/dL Normal 0.18-0.43 [facility] Comment on above: Order Comment: Speci men Type: BLOOD SPECIMENOrdering Facility: [facility] Address: [address] [place] [address], [place] [address] Performed By: #### L [id number] ####[facility] LABCLIA [id number] [address] Alpha 2 globulin Elph [Mass/Vol] 0.79 g/dL Normal 0.42-0.98 [facility] Comment on above: Order Comment: Speci men Type: BLOOD SPECIMENOrdering Facility: [facility] Address: [address] [place] [address], [place] [address] Performed By: #### L [id number] ####[facility] LABIA [id number] [address] Beta globulin Elph [Mass/Vol] 0.74 g/dL Normal 0.61-1.17 [facility] Comment on above: Order Comment: Speci men Type: BLOOD SPECIMENOrdering Facility: [facility] Address: [address] [place] [address] Performed By: #### L [id number] ####[facility] LABIA [id number] [address] Gamma globulin Elph [Mass/Vol] 0.59 g/dL Normal 0.53-1.51 [facility] Comment on above: Order Comment: Speci men Type: BLOOD SPECIMENOrdering Facility: [facility] Address: [address] [place] [address], [place] [address] Performed By: #### L [id number] ####[facility] LABIA [id number] [address] [place] M-PROTEIN LOCATION Normal [facility] Comment on above: Order Comment: Speci men Type: BLOOD SPECIMENOrdering Facility: [facility] Address: [address] [place] [address], [place] [address] Result Comment: Not Applicable. Performed By: #### L [id number] ####[facility] LABCLIA [id number] [address] [place] Protein Fractions [Interp] No definitive M protein is identified on protein electrophoresis. Normal No definitive M protein is identified on protein electrophore sis. [facility] Comment on above: Order Comment: Speci men Type: BLOOD SPECIMENOrdering Facility: [facility] Address: [address] [place] [address] Performed By: #### L [id number] ####[facility] LABCLIA [id number] [place] [address] [place] Protein.monoclonal Elph [Mass/Vol] 0.00 g/dL Normal <=0.00 [facility] Comment on above: Order Comment: Speci men Type: BLOOD SPECIMENOrdering Facility: [facility] Address: [address] [place] [address] Performed By: #### L [id number] ####[facility] LABIA [id number] [address] SPE STAFF REVIEW Reviewed by Sebas Ocampo MD, Ph.D ([id number]) Normal [facility] Comment on above: Order Comment: Speci men Type: BLOOD SPECIMENOrdering Facility: [facility] Address: [address] [place] [address] Performed By: #### L [id number] ####[facility] LABCLIA [id number] [address] [place] Prot SerPl-mCncon 04-26-2024 Protein [Mass/Vol] 5.9 g/dL Low 6.3-8.0 [facility] Comment on above: Order Comment: Speci men Type: BLOOD SPECIMENOrdering Facility: [facility] Address: [address] [place] [address] Performed By: #### 2 885-2 ####[facility] LABCLIA [id number] [address] OF [place] CNPNon 02-20-2024 CNPN Normal [facility] 25([place])D3 [facility] 25-hydroxyvitamin D3 [Mass/Vol] 17.5 ng/mL Low 31.0-80.0 [facility] Comment on above: Order Comment: Speci men Type: BLOOD SPECIMENOrdering Facility: External Submitter Address: , , Performed By: #### 1 989-3 ####[facility] LABCLIA [id number] [address] ALBUMIN/CREATININE RATIO, UR INEon 01-24-2024 Albumin DL <= 20 mg/L (U) [Mass/Vol] mg/dL Normal [facility] Comment on above: Order Comment: Speci men Type: URINE SPECIMENOrdering Facility: External Submitter Address: , , Performed By: #### U ACR ####[facility] LABIA [id number] [address] Albumin/Creatinine (U) [Mass ratio] >4641 High <30 [facility] Comment on above: Order Comment: Speci men Type: URINE SPECIMENOrdering Facility: External Submitter Address: , , Result Comment: Adul t Male and Female Nephrotic Criteria:<30 mg/g is considered normal to mildly -737 mg/g is considered moderately increased>300 mg/g is considered severely increasedKDIGO. (2013). KDIGO 2012 Clinical Practice Guideline for the Evaluation and Management of Chronic Kidney Disease. Official Journal of the International Society of Nephrology, 3(1), 1-150. Performed By: #### U ACR ####[facility] LABCLIA [id number] [address] STATES OF [facility] Creatinine (U) [Mass/Vol] 94.8 mg/dL Normal 20.0-300.0 [facility] Comment on above: Order Comment: Speci men Type: URINE SPECIMENOrdering Facility: External Submitter Address: , , Performed By: #### U ACR ####[facility] LABCLIA [id number] [place] [id number] [facility] CBC W Auto Differential pane l (Bld)on 01-24-2024 Basophils (Bld) [#/Vol] 10*3/uL Normal <0.11 [facility] Comment on above: Order Comment: Speci men Type: BLOOD SPECIMENOrdering Facility: External Submitter Address: , , Performed By: #### 5 7021-8 ####[facility] [id number] [address] Basophils/100 WBC (Bld) 0.3 % Normal [facility] Comment on above: Order Comment: Speci men Type: BLOOD SPECIMENOrdering Facility: External Submitter Address: , , Performed By: #### 5 7021-8 ####[facility]ORYCL[facility] [id number] [address] Differential cell count method Nom (Bld) Auto Normal [facility] Comment on above: Order Comment: Speci men Type: BLOOD SPECIMENOrdering Facility: External Submitter Address: , , Performed By: #### 5 7021-8 ####[facility]ORYCLIA [id number] [address] Eosinophils (Bld) [#/Vol] 0.14 10*3/uL Normal <0.46 [facility] Comment on above: Order Comment: Speci men Type: BLOOD SPECIMENOrdering Facility: External Submitter Address: , , Performed By: #### 5 7021-8 ####[facility]ORYCLIA [id number] [address] Eosinophils/100 WBC (Bld) 2.4 % Normal [facility] Comment on above: Order Comment: Speci men Type: BLOOD SPECIMENOrdering Facility: External Submitter Address: , , Performed By: #### 5 7021-8 ####[facility]ORYCLIA [id number] [address] Erythrocyte distribution width (RBC) [Ratio] 14.0 % Normal 11.5-15.0 [facility] Comment on above: Order Comment: Speci men Type: BLOOD SPECIMENOrdering Facility: External Submitter Address: , , Performed By: #### 5 7021-8 ####[facility]ORYCLIA [id number] [address] Hematocrit (Bld) [Volume fraction] 39.2 % Normal 39.0-51.0 [facility] Comment on above: Order Comment: Speci men Type: BLOOD SPECIMENOrdering Facility: External Submitter Address: , , Performed By: #### 5 7021-8 ####[facility]ORYCL[facility] [id number] [address] Hemoglobin (Bld) [Mass/Vol] 12.6 g/dL Low 13.0-17.0 [facility] Comment on above: Order Comment: Speci men Type: BLOOD SPECIMENOrdering Facility: External Submitter Address: , , Performed By: #### 5 7021-8 ####[facility]ORYCLIA [id number] [address] Immature granulocytes (Bld) [#/Vol] 0.03 10*3/uL Normal <0.10 [facility] Comment on above: Order Comment: Speci men Type: BLOOD SPECIMENOrdering Facility: External Submitter Address: , , Performed By: #### 5 7021-8 ####[facility]ORYCL[facility] [id number] [address] Immature granulocytes/100 WBC (Bld) 0.5 % Normal [facility] Comment on above: Order Comment: Speci men Type: BLOOD SPECIMENOrdering Facility: External Submitter Address: , , Performed By: #### 5 7021-8 ####[facility]ORYCL[facility] [id number] [address] Lymphocytes (Bld) [#/Vol] 1.26 10*3/uL Normal 1.00-4.00 [facility] Comment on above: Order Comment: Speci men Type: BLOOD SPECIMENOrdering Facility: External Submitter Address: , , Performed By: #### 5 7021-8 ####[facility]ORYCLIA [id number] [address] Lymphocytes/100 WBC (Bld) 21.2 % Normal [facility] Comment on above: Order Comment: Speci men Type: BLOOD SPECIMENOrdering Facility: External Submitter Address: , , Performed By: #### 5 7021-8 ####[facility]ORYCLIA [id number] [address] MCH (RBC) [Entitic mass] 27.1 pg Normal 26.0-34.0 [facility] Comment on above: Order Comment: Speci men Type: BLOOD SPECIMENOrdering Facility: External Submitter Address: , , Performed By: #### 5 7021-8 ####[facility]ORYCLIA [id number] [address] MCHC (RBC) [Mass/Vol] 32.1 g/dL Normal 30.5-36.0 [facility] Comment on above: Order Comment: Speci men Type: BLOOD SPECIMENOrdering Facility: External Submitter Address: , , Performed By: #### 5 7021-8 ####[facility]ORYCLIA [id number] [address] MCV (RBC) [Entitic vol] 84.3 fL Normal 80.0-100.0 [facility] Comment on above: Order Comment: Speci men Type: BLOOD SPECIMENOrdering Facility: External Submitter Address: , , Performed By: #### 5 7021-8 ####[facility]ORYCLIA [id number] [address] Monocytes (Bld) [#/Vol] 0.51 10*3/uL Normal <0.87 [facility] Comment on above: Order Comment: Speci men Type: BLOOD SPECIMENOrdering Facility: External Submitter Address: , , Performed By: #### 5 7021-8 ####[facility]ORYCLIA [id number] [address] Monocytes/100 WBC (Bld) 8.6 % Normal [facility] Comment on above: Order Comment: Speci men Type: BLOOD SPECIMENOrdering Facility: External Submitter Address: , , Performed By: #### 5 7021-8 ####[facility]ORYCLIA [id number] [address] [place] Neutrophils (Bld) [#/Vol] 3.99 10*3/uL Normal 1.45-7.50 [facility] Comment on above: Order Comment: Speci men Type: BLOOD SPECIMENOrdering Facility: External Submitter Address: , , Performed By: #### 5 7021-8 ####[facility]ORYCLIA [id number] [address] Neutrophils/100 WBC (Bld) 67.0 % Normal [facility] Comment on above: Order Comment: Speci men Type: BLOOD SPECIMENOrdering Facility: External Submitter Address: , , Performed By: #### 5 7021-8 ####[facility]ORYCL[facility] [id number] [address] Nucleated RBC (Bld) [#/Vol] 10*3/uL Normal <0.01 [facility] Comment on above: Order Comment: Speci men Type: BLOOD SPECIMENOrdering Facility: External Submitter Address: , , Performed By: #### 5 7021-8 ####[facility]ORYCLIA [id number] [address] Nucleated RBC/100 WBC (Bld) [Ratio] 0.0 /100 WBC Normal [facility] Comment on above: Order Comment: Speci men Type: BLOOD SPECIMENOrdering Facility: External Submitter Address: , , Performed By: #### 5 7021-8 ####[facility]ORYCLIA [id number] [address] [place] Platelet mean volume (Bld) [Entitic vol] 8.8 fL Low 9.0-12.7 [facility] Comment on above: Order Comment: Speci men Type: BLOOD SPECIMENOrdering Facility: External Submitter Address: , , Performed By: #### 5 7021-8 ####[facility]ORYCLIA [id number] [address] Platelets (Bld) [#/Vol] 289 10*3/uL Normal 150-400 [facility] Comment on above: Order Comment: Speci men Type: BLOOD SPECIMENOrdering Facility: External Submitter Address: , , Performed By: #### 5 7021-8 ####[facility]ATORYCLIA [id number] [place], [place] [address] [place] [address] RBC (Bld) [#/Vol] 4.65 10*6/uL Normal 4.20-6.00 [facility] Comment on above: Order Comment: Speci men Type: BLOOD SPECIMENOrdering Facility: External Submitter Address: , , Performed By: #### 5 7021-8 ####[facility]ORYCLIA [id number] [address] WBC (Bld) [#/Vol] 5.95 10*3/uL Normal 3.70-11.00 [facility] Comment on above: Order Comment: Speci men Type: BLOOD SPECIMENOrdering Facility: External Submitter Address: , , Performed By: #### 5 7021-8 ####[facility]ORYCLIA [id number] [address] [place] Magnesium SerPl-mCncon 01-23 Magnesium [Mass/Vol] 2.0 mg/dL Normal 1.7-2.3 [facility] Comment on above: Order Comment: Speci men Type: BLOOD SPECIMENOrdering Facility: External Submitter Address: , , Performed By: #### 1 9123-9, 54492-4, 3084-1 ####[facility]ORYCLIA [id number] [address] PTH-Intact SerPl-mCncon 2 Parathyrin.intact [Mass/Vol] 79 pg/mL High 1565 [facility] Comment on above: Order Comment: Speci men Type: BLOOD SPECIMENOrdering Facility: External Submitter Address: , , Performed By: #### 2 731-8 ####[facility] LABCLIA [id number] [facility] [id number] [address] [place] Renal function 2000 panelon 01-24-2024 Albumin [Mass/Vol] 4.0 g/dL Normal 3.9-4.9 [facility] Comment on above: Order Comment: Speci men Type: BLOOD SPECIMENOrdering Facility: External Submitter Address: , , Performed By: #### 1 9123-9, , 3083-04 ####[facility]ORYCLIA [id number] [address] Anion gap [Moles/Vol] 10 mmol/L Normal 8-15 [facility] Comment on above: Order Comment: Speci men Type: BLOOD SPECIMENOrdering Facility: External Submitter Address: , , Performed By: #### 1 9122-9, , 3083-04 ####[facility]ORYCLIA [id number] [address] Calcium [Mass/Vol] 9.7 mg/dL Normal 8.5-10.2 [facility] Comment on above: Order Comment: Speci men Type: BLOOD SPECIMENOrdering Facility: External Submitter Address: , , Performed By: #### 1 9, , 3083-04 ####[facility]ORYCLIA [id number] [address] Chloride [Moles/Vol] 106 mmol/L Normal 98-107 [facility] Comment on above: Order Comment: Speci men Type: BLOOD SPECIMENOrdering Facility: External Submitter Address: , , Performed By: #### 1 [address]1239, , 3083-04 ####[facility]ORYCLIA [id number] [address] CO2 [Moles/Vol] 26 mmol/L Normal 22-30 [facility] Comment on above: Order Comment: Speci men Type: BLOOD SPECIMENOrdering Facility: External Submitter Address: , , Performed By: #### 1 9123-9, , 3083-04 ####[facility]ORYCLIA [id number] [address] Creatinine [Mass/Vol] 2.63 mg/dL High 0.73-1.22 [facility] Comment on above: Order Comment: Speci men Type: BLOOD SPECIMENOrdering Facility: External Submitter Address: , , Performed By: #### 1 9123-9, 53938-8, 3083-04 ####[facility]ATORYCLIA [id number] [place] [address] [place] [facility] Creatinine and Glomerular filtration rate.predicted panel (S/P/Bld) 26 mL/min/1.73m??? Low >=60 [facility] Comment on above: Order Comment: Specjonas vaughan [...] actual GFR. Performed By: #### 1 9123-9, 96217-3, 3083-04 ####[facility]ATORYCLIA [id number] [place] [address] [place] Glucose [Mass/Vol] 151 mg/dL High 74-99 [facility] Comment on above: Order Comment: Luz vaughan Type: BLOOD SPECIMENOrdering Facility: External Submitter Address: , , Result Comment: The [place] Diabetes Association (ADA) provides guidance for cutoff [...] Standards of Medical Care in Diabetes 2016, [place] [employer]. Diabetes Care. 2016.39(Suppl 1). Performed By: #### 1 9123-9, 24421-5, 3083-04 ####[facility]ATORYCLIA [id number] [place] [id number] [place] Phosphate [Mass/Vol] 3.9 mg/dL Normal 2.7-4.8 [facility] Comment on above: Order Comment: Speci men Type: BLOOD SPECIMENOrdering Facility: External Submitter Address: , , Performed By: #### 1 9123-9, 02501-5, 3083-04 ####[facility]ATORYCLIA [id number] [address] OF [facility] Potassium [Moles/Vol] 4.9 mmol/L Normal 3.7-5.1 [facility] Comment on above: Order Comment: Speci men Type: BLOOD SPECIMENOrdering Facility: External Submitter Address: , , Performed By: #### 1 9123-9, 27012-7, 3083-04 ####[facility]ORYCLIA [id number] [address] Sodium [Moles/Vol] 142 mmol/L Normal 136-144 [facility] Comment on above: Order Comment: Speci men Type: BLOOD SPECIMENOrdering Facility: External Submitter Address: , , Performed By: #### 1 9123-9, 64115-8, 3083-04 ####[facility]ORYCLIA [id number] [address] Urea nitrogen [Mass/Vol] 47 mg/dL High 9-24 [facility] Comment on above: Order Comment: Speci men Type: BLOOD SPECIMENOrdering Facility: External Submitter Address: , , Performed By: #### 1 9123-9, 87650-1, 3083 ####[facility]ATORYCLIA [id number] [address] [place] URINALYSIS, REFLEX MICROSCOP ICon 01-24-2024 Bilirubin Ql (U) Negative Normal Negative [facility] Comment on above: Order Comment: Speci men Type: URINE SPECIMENOrdering Facility: External Submitter Address: , , Performed By: #### L [id number] ####[facility]ORYCLIA [id number] [address] [place] Clarity (Unsp spec) Clear Normal Clear [facility] Comment on above: Order Comment: Speci men Type: URINE SPECIMENOrdering Facility: External Submitter Address: , , Performed By: #### L [id number] ####[facility]ORYCLIA [id number] [address] Color (U) Yellow Normal Yellow [facility] Comment on above: Order Comment: Speci men Type: URINE SPECIMENOrdering Facility: External Submitter Address: , , Performed By: #### L [id number] ####[facility]ORYCLIA [id number] [address] Glucose Test strip (U) [Mass/Vol] 1+ Abnormal Negative [facility] Comment on above: Order Comment: Speci men Type: URINE SPECIMENOrdering Facility: External Submitter Address: , , Performed By: #### L [id number] ####[facility]ORYCLIA [id number] [address] Granular casts (Urine sed) [#/Area] 1-3 /LPF Abnormal 0 /LPF [facility] Comment on above: Order Comment: Speci men Type: URINE SPECIMENOrdering Facility: External Submitter Address: , , Performed By: #### L [id number] ####[facility]ORYCLIA [id number] [address] Hemoglobin Ql (U) 2+ Abnormal Negative [facility] Comment on above: Order Comment: Speci men Type: URINE SPECIMENOrdering Facility: External Submitter Address: , , Performed By: #### L [id number] ####[facility]ORYCLIA [id number] [address] Ketones Ql (U) Negative Normal Negative [facility] Comment on above: Order Comment: Speci men Type: URINE SPECIMENOrdering Facility: External Submitter Address: , , Performed By: #### L [id number] ####[facility]ORYCLIA [id number] [address] Leukocyte esterase Test strip Ql (U) Negative Normal Negative [facility] Comment on above: Order Comment: Speci men Type: URINE SPECIMENOrdering Facility: External Submitter Address: , , Performed By: #### L [id number] ####[facility]ORYCLIA [id number] [address] Nitrite Ql (U) Negative Normal Negative [facility] Comment on above: Order Comment: Speci men Type: URINE SPECIMENOrdering Facility: External Submitter Address: , , Performed By: #### L [id number] ####[facility]ORYCLIA [id number] [address] pH (U) 6.0 [pH] Normal 5.0-8.0 [facility] Comment on above: Order Comment: Speci men Type: URINE SPECIMENOrdering Facility: External Submitter Address: , , Performed By: #### L [id number] ####[facility]ORYCLIA [id number] [address] Protein (U) [Mass/Vol] 3+ Abnormal Negative [facility] Comment on above: Order Comment: Speci men Type: URINE SPECIMENOrdering Facility: External Submitter Address: , , Performed By: #### L [id number] ####[facility]ORYCLIA [id number] [address] RBC LM.HPF (Urine sed) [#/Area] 3-5 /HPF Abnormal 0-3 /HPF [facility] Comment on above: Order Comment: Speci men Type: URINE SPECIMENOrdering Facility: External Submitter Address: , , Performed By: #### L [id number] ####[facility]ORYCLIA [id number] [address] Specific gravity (U) [Rel density] 1.025 Normal 1.005-1.030 [facility] Comment on above: Order Comment: Speci men Type: URINE SPECIMENOrdering Facility: External Submitter Address: , , Performed By: #### L [id number] ####[facility]ORYCLIA [id number] [address] Urobilinogen Ql (U) 0.2 EU/dL Normal 0.2-1.0 EU/dL [facility] Comment on above: Order Comment: Speci men Type: URINE SPECIMENOrdering Facility: External Submitter Address: , , Performed By: #### L [id number] ####[facility]ORYCLIA [id number] [address] WBC LM.HPF (Urine sed) [#/Area] 0-5 /HPF Normal 0-5 /HPF [facility] Comment on above: Order Comment: Speci men Type: URINE SPECIMENOrdering Facility: External Submitter Address: , , Performed By: #### L [id number] ####[facility]ORYCLIA [id number] [address] [place] Urate SerPl-mCncon Urate [Mass/Vol] 5.6 mg/dL Normal 4.0-8.1 [facility] Comment on above: Order Comment: Speci men Type: BLOOD SPECIMENOrdering Facility: External Submitter Address: , , Performed By: #### 1 9123-9, 76105-3, 3084-1 ####[facility]ATORYCLIA [id number] [address] [place] CNPNon 12-22-2023 CNPN Normal [facility] CNPNon 12-18-2023 CNPN Normal [facility] [id number] 10-20-2023 [id number] Normal [facility] CNDSon 10-20-2023 CNDS Normal [facility] NURSING PROGon 10-20-2023 NURSING PROG [facility] SOCIAL WORKon 10-20-2023 SOCIAL WORK Normal [facility] SOCIAL WORK Normal [facility] POTASSIUMon 10-19-2023 Potassium [Moles/Vol] 4.6 mmol/L Normal 3.7-5.1 [facility] Comment on above: Order Comment: Speci men Type: BLOOD SPECIMENOrdering Facility: [facility] Address: [address] [place] [address] Performed By: #### K 1 ####[facility] [place] LABCLIA [id number] [place] [address] [place] SOCIAL WORKon 10-19-2023 SOCIAL WORK Normal [facility] THERAPY NTon 10-19-2023 THERAPY NT Normal [facility] THERAPY NT Normal [facility] THERAPY NT Normal [facility] THERAPY NT Normal [facility] Basic metabolic 2000 panelon 10-18-2023 Anion gap [Moles/Vol] 9 mmol/L Normal 8-15 [facility] Comment on above: Order Comment: Speci men Type: BLOOD SPECIMENOrdering Facility: [facility] Address: [address] [place] [address] Performed By: #### 2 4321-2 ####[facility] LABCLIA [id number] [facility] [address] [place] Calcium [Mass/Vol] 8.7 mg/dL Normal 8.5-10.2 [facility] Comment on above: Order Comment: Speci men Type: BLOOD SPECIMENOrdering Facility: [facility] Address: [address] [place] [address] Performed By: #### 2 4321-2 ####[facility] LABCLIA [id number] [facility] [address] [place] Chloride [Moles/Vol] 105 mmol/L Normal 98-107 [facility] Comment on above: Order Comment: Speci men Type: BLOOD SPECIMENOrdering Facility: [facility] Address: [address] [place] [address] Performed By: #### 2 4321-2 ####[facility] LABCLIA [id number] [facility] [address] [place] CO2 [Moles/Vol] 26 mmol/L Normal 22-30 [facility] Comment on above: Order Comment: Speci men Type: BLOOD SPECIMENOrdering Facility: [facility] Address: [address] [place] [address] Performed By: #### 2 4321-2 ####[facility] LABCLIA [id number] [place] [address] [place] Creatinine [Mass/Vol] 2.26 mg/dL High 0.73-1.22 [facility] Comment on above: Order Comment: Speci men Type: BLOOD SPECIMENOrdering Facility: [facility] Address: [address] [place] [address] Performed By: #### 2 4321-2 ####[facility] [employer] LABCLIA [id number] [place] [address] [place] Creatinine and Glomerular filtration rate.predicted panel (S/P/Bld) 32 mL/min/1.73m??? Low >=60 [facility] Comment on above: Order Comment: Luz vaughan Type: BLOOD SPECIMENOrdering Facility: [facility] Address: [address] [place] [address] Result Comment: Breanne mated Glomerular Filtration Rate [...] actual GFR. Performed By: #### 2 4321-2 ####[facility] LABIA [id number] [place] [address] [place] Glucose [Mass/Vol] 100 mg/dL High 74-99 [facility] Comment on above: Order Comment: Luz vaughan Type: BLOOD SPECIMENOrdering Facility: [facility] Address: [address] [place] [address] Result Comment: The [place] [employer] (ADA) provides guidance for cutoff [...] Standards of Medical Care in Diabetes 2016, [place] [employer]. Diabetes Care. 2016.39(Suppl 1). Performed By: #### 2 4321-2 ####[facility] [employer] [facility] LABCLIA [id number] [place] [address] [place] Potassium [Moles/Vol] 5.8 mmol/L High 3.7-5.1 [facility] Comment on above: Order Comment: Speci men Type: BLOOD SPECIMENOrdering Facility: [facility] Address: [address] [place] [address] Performed By: #### 2 4321-2 ####[facility] [place] LABCLIA [id number] [place] [address] [place] Sodium [Moles/Vol] 140 mmol/L Normal 136-144 [facility] Comment on above: Order Comment: Speci men Type: BLOOD SPECIMENOrdering Facility: [facility] Address: [address] [place] [address] Performed By: #### 2 4321-2 ####[facility] LABCLIA [id number] [place] [address] [place] [facility] Urea nitrogen [Mass/Vol] 44 mg/dL High 9-24 [facility] Comment on above: Order Comment: Speci men Type: BLOOD SPECIMENOrdering Facility: [facility] Address: [address] [place] [address] Performed By: #### 2 4321-2 ####[facility] [employer] LABCLIA [id number] [place] [address] [place] CBC panel Auto (Bld)on 10-17 Erythrocyte distribution width (RBC) [Ratio] 13.9 % Normal 11.5-15.0 [facility] Comment on above: Order Comment: Speci men Type: BLOOD SPECIMENOrdering Facility: [facility] Address: [address] [place] [address] Performed By: #### 5 8410-2 ####[facility] [place] LABCLIA [id number] [place] [address] [facility] Hematocrit (Bld) [Volume fraction] 28.1 % Low 39.0-51.0 [facility] Comment on above: Order Comment: Speci men Type: BLOOD SPECIMENOrdering Facility: [facility] Address: [address] [place] [address] Performed By: #### 5 8410-2 ####[facility] LABCLIA [id number] [place] [address] [facility] Hemoglobin (Bld) [Mass/Vol] 8.7 g/dL Low 13.0-17.0 [facility] Comment on above: Order Comment: Speci men Type: BLOOD SPECIMENOrdering Facility: [facility] Address: [address] [place] [address] Performed By: #### 5 8410-2 ####[facility] LABCLIA [id number] [place] [address] [facility] MCH (RBC) [Entitic mass] 27.4 pg Normal 26.0-34.0 [facility] Comment on above: Order Comment: Speci men Type: BLOOD SPECIMENOrdering Facility: [facility] Address: [address] [place] [address] Performed By: #### 5 8410-2 ####[facility] LABCLIA [id number] [place] [address] [place] MCHC (RBC) [Mass/Vol] 31.0 g/dL Normal 30.5-36.0 [facility] Comment on above: Order Comment: Speci men Type: BLOOD SPECIMENOrdering Facility: [facility] Address: [address] [place] [address] Performed By: #### 5 8410-2 ####[facility] LABCLIA [id number] [place] [address] [place] [facility] MCV (RBC) [Entitic vol] 88.4 fL Normal 80.0-100.0 [facility] Comment on above: Order Comment: Speci men Type: BLOOD SPECIMENOrdering Facility: [facility] Address: [address] [place] [address] Performed By: #### 5 8410-2 ####[facility] LABCLIA [id number] [place] [address] [place] Platelet mean volume (Bld) [Entitic vol] 8.6 fL Low 9.0-12.7 [facility] Comment on above: Order Comment: Speci men Type: BLOOD SPECIMENOrdering Facility: [facility] Address: [address] [place] [address] Performed By: #### 5 8410-2 ####[facility] LABCLIA [id number] [place] [address] [facility] Platelets (Bld) [#/Vol] 438 10*3/uL High 150-400 [facility] Comment on above: Order Comment: Speci men Type: BLOOD SPECIMENOrdering Facility: [facility] Address: [address] [place] [address] Performed By: #### 5 8410-2 ####[facility] LABCLIA [id number] [place] [address] [facility] RBC (Bld) [#/Vol] 3.18 10*6/uL Low 4.20-6.00 [facility] Comment on above: Order Comment: Speci men Type: BLOOD SPECIMENOrdering Facility: [facility] Address: [address] [place] [address] Performed By: #### 5 8410-2 ####[facility] LABCLIA [id number] [place] [address] [facility] WBC (Bld) [#/Vol] 5.65 10*3/uL Normal 3.70-11.00 [facility] Comment on above: Order Comment: Speci men Type: BLOOD SPECIMENOrdering Facility: [facility] Address: [address] [place] [address] Performed By: #### 5 8410-2 ####[facility] LABCLIA [id number] [place] [address] [facility] NURSING PROGon 10-18-2023 NURSING PROG Normal [facility] POTASSIUMon 10-18-2023 Potassium [Moles/Vol] 5.4 mmol/L High 3.7-5.1 [facility] Comment on above: Order Comment: Speci men Type: BLOOD SPECIMENOrdering Facility: [facility] Address: [address] [place] [address] Performed By: #### K 1 ####[facility] [place] LABCLIA [id number] [place] [address] [place] Potassium [Moles/Vol] 5.5 mmol/L High 3.7-5.1 Nyr [facility] Comment on above: Order Comment: Speci men Type: BLOOD SPECIMENOrdering Facility: [facility] Address: [address] [place], [place] [address] Performed By: #### K 1 ####[facility] LABCLIA [id number] [place] [address] [place] SOCIAL WORKon 10-18-2023 SOCIAL WORK Normal [facility] SOCIAL WORK Normal [facility] SOCIAL WORK Normal [facility] THERAPY NTon 10-18-2023 THERAPY NT Normal [facility] THERAPY NT Normal [facility] CASE MANAGEMon 10-17-2023 CASE MANAGEM Normal [facility] SOCIAL WORKon 10-17-2023 SOCIAL WORK Normal [facility] THERAPY NTon 10-17-2023 THERAPY NT Normal [facility] THERAPY NT Normal [facility] THERAPY NTon 10-16-2023 THERAPY NT Normal [facility] THERAPY NT Normal [facility] THERAPY NT Normal [facility] NURSING PROGon 10-15-2023 NURSING PROG Normal [facility] THERAPY NTon 10-14-2023 THERAPY NT Normal [facility] CASE MANAGEMon 10-13-2023 CASE MANAGEM Normal [facility] NUTRITIONon 10-13-2023 NUTRITION Normal [facility] THERAPY NTon 10-13-2023 THERAPY NT Normal [facility] THERAPY NT Normal [facility] SOCIAL WORKon 10-12-2023 SOCIAL WORK Normal [facility] THERAPY NTon 10-12-2023 THERAPY NT Normal [facility] THERAPY NT Normal [facility] NURSING PROGon 10-11-2023 NURSING PROG Normal [facility] THERAPY NTon 10-11-2023 THERAPY NT Normal [facility] THERAPY NT Normal [facility] CASE MGT INIT ASSESon 2023 CASE MGT INIT ASSES Normal [facility] NURSING PROGon 10-10-2023 NURSING PROG Normal [facility] NURSING PROG Normal [facility] SOCIAL WORKon 10-10-2023 SOCIAL WORK Normal [facility] THERAPY NTon 10-10-2023 THERAPY NT Normal [facility] THERAPY NT Normal [facility] Basic metabolic 2000 panelon 10-09-2023 Anion gap [Moles/Vol] 12 mmol/L Normal 8-15 [facility] Comment on above: Order Comment: Speci men Type: BLOOD SPECIMENOrdering Facility: [facility] Address: [address] [place] [address] Performed By: #### 2 4321-2, 6-4, 47419-2, 9, 2283-11 ####[facility] LABORATORYCLIA [id number] [place] [address] [place] Calcium [Mass/Vol] 8.7 mg/dL Normal 8.5-10.2 [facility] Comment on above: Order Comment: Speci men Type: BLOOD SPECIMENOrdering Facility: [facility] Address: [address] [place] [address] Performed By: #### 2 4321-2, 6-4, 17954-4, 9, 8 ####[facility] LABORATORYCLIA [id number] [place] [address] [place] Chloride [Moles/Vol] 103 mmol/L Normal 98-107 [facility] Comment on above: Order Comment: Speci men Type: BLOOD SPECIMENOrdering Facility: [facility] Address: [address] [place] [address] Performed By: #### 2 4321-2, 2276-4, 09399-5, 9, 8 ####[facility] LABORATORYCLIA [id number] [place] [address] [place] CO2 [Moles/Vol] 26 mmol/L Normal 22-30 [facility] Comment on above: Order Comment: Specjonas vaughan Type: BLOOD SPECIMENOrdering Facility: [facility] Address: [address] [place] [address] Performed By: #### 2 4321-2, 6-4, 39805-6, 9, 2283-11 ####[facility] LABORATORYCLIA [id number] [place] [address] [place] Creatinine [Mass/Vol] 2.35 mg/dL High 0.73-1.22 [facility] Comment on above: Order Comment: Speci men Type: BLOOD SPECIMENOrdering Facility: [facility] Address: [address] [place] [address] Performed By: #### 2 4321-2, 6-4, 73340-0, 9, 2283-11 ####[facility]ENTER[facility] [id number] [address] STATES OF [facility] Creatinine and Glomerular filtration rate.predicted panel (S/P/Bld) 30 mL/min/1.73m??? Low >=60 [facility] Comment on above: Order Comment: Luz vaughan Type: BLOOD SPECIMENOrdering Facility: [facility] Address: [address] [place] [address] Result Comment: Breanne mated Glomerular Filtration Rate [...] GFR. Performed By: #### 2 4321-2, 6-4, 19645-0, 2131-12, 2283-11 ####[facility] LABORATORYCLIA [id number] [place] [address] [place] Glucose [Mass/Vol] 149 mg/dL High 74-99 [facility] Comment on above: Order Comment: Brooksi men Type: BLOOD SPECIMENOrdering Facility: [facility] Address: [address] [place] [address] Result Comment: The [place] [employer] (ADA) provides guidance for cutoff [...] Standards of Medical Care in Diabetes 2016, [place] [employer]. Diabetes Care. 2016.39(Suppl 1). Performed By: #### 2 4321-2, 6-4, 80343-1, 2131-12, 2283-11 ####[facility] LABORATORYCLIA [id number] [place] [address] [place] Potassium [Moles/Vol] 5.4 mmol/L High 3.7-5.1 [facility] Comment on above: Order Comment: Speci men Type: BLOOD SPECIMENOrdering Facility: [facility] Address: [address] [place] [address] Performed By: #### 2 4321-2, 6-4, 21730-7, 2131-12, 2283-11 ####[facility] LABORATORYCLIA [id number] [place] [address] [place] Sodium [Moles/Vol] 141 mmol/L Normal 136-144 [facility] Comment on above: Order Comment: Speci men Type: BLOOD SPECIMENOrdering Facility: [facility] Address: [address] [place], [place] [address] Performed By: #### 2 4321-2, 6-4, 39475-7, 9, 2283-11 ####[facility] LABORATORYCLIA [id number] [place] [address] [place] Urea nitrogen [Mass/Vol] 42 mg/dL High 9-24 [facility] Comment on above: Order Comment: Speci men Type: BLOOD SPECIMENOrdering Facility: [facility] Address: [address] [place] [address] Performed By: #### 2 4321-2, 2276-4, 99377-1, 2132-9, 2284-8 ####[facility] LABORATORYCLIA [id number] [place] [address] [place] [facility] CASE MANAGEMon 10-09-2023 CASE MANAGEM Normal [facility] CBC panel Auto (Bld)on 10-08 Erythrocyte distribution width (RBC) [Ratio] 13.5 % Normal 11.5-15.0 [facility] Comment on above: Order Comment: Speci men Type: BLOOD SPECIMENOrdering Facility: [facility] Address: [address] [place] [address] Performed By: #### 5 8410-2 ####[facility] [place] LABCLIA [id number] [place] [address] [place] Hematocrit (Bld) [Volume fraction] 30.2 % Low 39.0-51.0 [facility] Comment on above: Order Comment: Speci men Type: BLOOD SPECIMENOrdering Facility: [facility] Address: [address] [place] [address] Performed By: #### 5 8410-2 ####[facility] LABCLIA [id number] [place] [address] [place] Hemoglobin (Bld) [Mass/Vol] 9.3 g/dL Low 13.0-17.0 [facility] Comment on above: Order Comment: Speci men Type: BLOOD SPECIMENOrdering Facility: [facility] Address: [address] [place] [address] Performed By: #### 5 8410-2 ####[facility] LABCLIA [id number] [place] [address] [place] MCH (RBC) [Entitic mass] 27.4 pg Normal 26.0-34.0 [facility] Comment on above: Order Comment: Speci men Type: BLOOD SPECIMENOrdering Facility: [facility] Address: [address] [place] [address] Performed By: #### 5 8410-2 ####[facility] LABCLIA [id number] [place] [address] [place] [facility] MCHC (RBC) [Mass/Vol] 30.8 g/dL Normal 30.5-36.0 [facility] Comment on above: Order Comment: Speci men Type: BLOOD SPECIMENOrdering Facility: [facility] Address: [address] [place] [address] Performed By: #### 5 8410-2 ####[facility] LABCLIA [id number] [place] [address] [place] MCV (RBC) [Entitic vol] 89.1 fL Normal 80.0-100.0 [facility] Comment on above: Order Comment: Speci men Type: BLOOD SPECIMENOrdering Facility: [facility] Address: [address] [place] [address] Performed By: #### 5 8410-2 ####[facility] LABCLIA [id number] [place] [address] [place] Platelet mean volume (Bld) [Entitic vol] 8.9 fL Low 9.0-12.7 [facility] Comment on above: Order Comment: Speci men Type: BLOOD SPECIMENOrdering Facility: [facility] Address: [address] [place] [address] Performed By: #### 5 8410-2 ####[facility] LABCLIA [id number] [place] [address] [facility] Platelets (Bld) [#/Vol] 315 10*3/uL Normal 150-400 [facility] Comment on above: Order Comment: Speci men Type: BLOOD SPECIMENOrdering Facility: [facility] Address: [address] [place] [address] Performed By: #### 5 8410-2 ####[facility] [place] LABCLIA [id number] [place] [address] [place] RBC (Bld) [#/Vol] 3.39 10*6/uL Low 4.20-6.00 [facility] Comment on above: Order Comment: Speci men Type: BLOOD SPECIMENOrdering Facility: [facility] Address: [address] [place] [address] Performed By: #### 5 8410-2 ####[facility] LABCLIA [id number] [place] [id number] [facility] WBC (Bld) [#/Vol] 7.71 10*3/uL Normal 3.70-11.00 [facility] Comment on above: Order Comment: Speci men Type: BLOOD SPECIMENOrdering Facility: [facility] Address: [address] [place] [address] Performed By: #### 5 8410-2 ####[facility] LABCLIA [id number] [place] [id number] [facility] Ferritin SerPl-mCncon 2023 Ferritin [Mass/Vol] 712.0 ng/mL High 30.3-565.7 [facility] Comment on above: Order Comment: Speci men Type: BLOOD SPECIMENOrdering Facility: [facility] Address: [address] [place] [address] Performed By: #### 2 4321-2, 2276-4, 41268-6, 2131-9, 2283-8 ####[facility] LABORATORYCLIA [id number] [place] [address] [place] Folate SerPl-mCncon 10-09-19 Folate [Mass/Vol] 7.0 ng/mL Normal >4.7 [facility] Comment on above: Order Comment: Speci men Type: BLOOD SPECIMENOrdering Facility: [facility] Address: [address] [place] [address] Performed By: #### 2 4321-2, 2276-4, 20300-4, 2131-9, 2283-8 ####[facility] LABORATORYCLIA [id number] [place] [address] [place] Iron and Iron binding capaci ty panelon 10-09-2023 Iron [Mass/Vol] 23 ug/dL Low 41-186 [facility] Comment on above: Order Comment: Speci men Type: BLOOD SPECIMENOrdering Facility: [facility] Address: [address] [place] [address] Performed By: #### 2 4321-2, 2276-4, 22827-1, 9, 2283-11 ####[facility] LABORATORYCLIA [id number] [place] [address] [place] Iron binding capacity [Mass/Vol] 165 ug/dL Low 232-386 [facility] Comment on above: Order Comment: Speci men Type: BLOOD SPECIMENOrdering Facility: [facility] Address: [address] [place] [address] Performed By: #### 2 4321-2, 6-4, 35119-1, 9, 2283-11 ####[facility] LABORATORYCLIA [id number] [address] [place] Iron saturation [Mass fraction] 13.9 % Low 15.0-57.0 [facility] Comment on above: Order Comment: Speci men Type: BLOOD SPECIMENOrdering Facility: [facility] Address: [address] [place] [address] Performed By: #### 2 4321-2, 2276-4, 66606-6, 9, 8 ####[facility] LABORATORYCLIA [id number] [place] [address] [place] SOCIAL WORKon 10-09-2023 SOCIAL WORK Normal [facility] THERAPY NTon 10-09-2023 THERAPY NT Normal [facility] THERAPY NT Normal [facility] THERAPY NT Normal [facility] Vit B12 SerPl-mCncon 024 Cobalamin (Vitamin B12) [Mass/Vol] 574 pg/mL Normal 232-1245 [facility] Comment on above: Order Comment: Speci men Type: BLOOD SPECIMENOrdering Facility: [facility] Address: [address] [place] [address] Performed By: #### 2 4321-2, 2276-4, 64978-0, 2132-9, 2284-8 ####[facility] LABORATORYCLIA [id number] [place] [address] [place] THERAPY NTon 10-08-2023 THERAPY NT Normal [facility] THERAPY NTon 10-07-2023 THERAPY NT Normal [facility] Basic metabolic 2000 panelon 10-06-2023 Anion gap [Moles/Vol] 10 mmol/L Normal 8-15 [facility] Comment on above: Order Comment: Speci men Type: BLOOD SPECIMENOrdering Facility: [facility] Address: [address] [place] [address] Performed By: #### 2 4321-2 ####[facility] [place] LABCLIA [id number] [place] [address] [place] Calcium [Mass/Vol] 8.9 mg/dL Normal 8.5-10.2 [facility] Comment on above: Order Comment: Speci men Type: BLOOD SPECIMENOrdering Facility: [facility] Address: [address] [place] [address] Performed By: #### 2 4321-2 ####[facility] [place] LABCLIA [id number] [place] [address] [place] Chloride [Moles/Vol] 104 mmol/L Normal 98-107 [facility] Comment on above: Order Comment: Speci men Type: BLOOD SPECIMENOrdering Facility: [facility] Address: [address] [place] [address] Performed By: #### 2 4321-2 ####[facility] [place] LABCLIA [id number] [place] [address] [place] CO2 [Moles/Vol] 27 mmol/L Normal 22-30 [facility] Comment on above: Order Comment: Speci men Type: BLOOD SPECIMENOrdering Facility: [facility] Address: [address] [place] [address] Performed By: #### 2 4321-2 ####[facility] LABCLIA [id number] [place] [address] [place] Creatinine [Mass/Vol] 2.00 mg/dL High 0.73-1.22 [facility] Comment on above: Order Comment: Speci men Type: BLOOD SPECIMENOrdering Facility: [facility] Address: [address] [place] [address] Performed By: #### 2 4321-2 ####[facility] LABCLIA [id number] [place] [address] [place] Creatinine and Glomerular filtration rate.predicted panel (S/P/Bld) 37 mL/min/1.73m??? Low >=60 [facility] Comment on above: Order Comment: Luz men Type: BLOOD SPECIMENOrdering Facility: [facility] Address: [address] [place] [address] Result Comment: Breanne mated Glomerular Filtration Rate [...] actual GFR. Performed By: #### 2 4321-2 ####[facility] LABCLIA [id number] [place] [address] [place] Glucose [Mass/Vol] 180 mg/dL High 74-99 [facility] Comment on above: Order Comment: Luz clement Type: BLOOD SPECIMENOrdering Facility: [facility] Address: [address] [place] [address] Result Comment: The [place] [employer] (ADA) provides guidance for cutoff [...] Standards of Medical Care in Diabetes 2016, [place] [employer]. Diabetes Care. 2016.39(Suppl 1). Performed By: #### 2 4321-2 ####[facility] LABCLIA [id number] [place] [address] [place] Potassium [Moles/Vol] 4.5 mmol/L Normal 3.7-5.1 [facility] Comment on above: Order Comment: Luz vaughan Type: BLOOD SPECIMENOrdering Facility: [facility] Address: [address] [place] [address] Performed By: #### 2 4321-2 ####[facility] [employer] [employer] LABCLIA [id number] [place] [address] [place] [facility] Sodium [Moles/Vol] 141 mmol/L Normal 136-144 [facility] Comment on above: Order Comment: Luz vaughan Type: BLOOD SPECIMENOrdering Facility: [facility] Address: [address] [place] [address] Performed By: #### 2 4321-2 ####[facility] [employer] LABCLIA [id number] [place] [address] [place] Urea nitrogen [Mass/Vol] 32 mg/dL High 9-24 [facility] Comment on above: Order Comment: Speci men Type: BLOOD SPECIMENOrdering Facility: [facility] Address: [address] [place] [address] Performed By: #### 2 4321-2 ####[facility] [employer] LABCLIA [id number] [place] [address] [facility] [place] CBC panel Auto (Bld)on 10-05 Erythrocyte distribution width (RBC) [Ratio] 13.5 % Normal 11.5-15.0 [facility] Comment on above: Order Comment: Speci men Type: BLOOD SPECIMENOrdering Facility: [facility] Address: [address] [place] [address] Performed By: #### 5 8410-2 ####[facility] [place] LABCLIA [id number] [place] [address] [place] [facility] Hematocrit (Bld) [Volume fraction] 31.5 % Low 39.0-51.0 [facility] Comment on above: Order Comment: Speci men Type: BLOOD SPECIMENOrdering Facility: [facility] Address: [address] [place] [address] Performed By: #### 5 8410-2 ####[facility] LABCLIA [id number] [place] [address] [facility] Hemoglobin (Bld) [Mass/Vol] 9.9 g/dL Low 13.0-17.0 [facility] Comment on above: Order Comment: Speci men Type: BLOOD SPECIMENOrdering Facility: [facility] Address: [address] [place] [address] Performed By: #### 5 8410-2 ####[facility] LABCLIA [id number] [place] [address] [place] [facility] MCH (RBC) [Entitic mass] 27.3 pg Normal 26.0-34.0 [facility] Comment on above: Order Comment: Speci men Type: BLOOD SPECIMENOrdering Facility: [facility] Address: [address] [place] [address] Performed By: #### 5 8410-2 ####[facility] [place] LABCLIA [id number] [place] [address] [place] MCHC (RBC) [Mass/Vol] 31.4 g/dL Normal 30.5-36.0 [facility] Comment on above: Order Comment: Speci men Type: BLOOD SPECIMENOrdering Facility: [facility] Address: [address] [place] [address] Performed By: #### 5 8410-2 ####[facility] [place] LABCLIA [id number] [place] [address] [facility] [place] MCV (RBC) [Entitic vol] 86.8 fL Normal 80.0-100.0 [facility] Comment on above: Order Comment: Speci men Type: BLOOD SPECIMENOrdering Facility: [facility] Address: [address] [place] [address] Performed By: #### 5 8410-2 ####[facility] [place] LABCLIA [id number] [place] [address] [place] Platelet mean volume (Bld) [Entitic vol] 8.4 fL Low 9.0-12.7 [facility] Comment on above: Order Comment: Speci men Type: BLOOD SPECIMENOrdering Facility: [facility] Address: [address] [place] [address] Performed By: #### 5 8410-2 ####[facility] LABCLIA [id number] [place], [place] [address] [place] [address] [facility] Platelets (Bld) [#/Vol] 345 10*3/uL Normal 150-400 [facility] Comment on above: Order Comment: Speci men Type: BLOOD SPECIMENOrdering Facility: [facility] Address: [address] [place] [address] Performed By: #### 5 8410-2 ####[facility] LABCLIA [id number] [place] [address] [place] RBC (Bld) [#/Vol] 3.63 10*6/uL Low 4.20-6.00 [facility] Comment on above: Order Comment: Speci men Type: BLOOD SPECIMENOrdering Facility: [facility] Address: [address] [place] [address] Performed By: #### 5 8410-2 ####[facility] [place] LABCLIA [id number] [place] [address] [place] WBC (Bld) [#/Vol] 9.66 10*3/uL Normal 3.70-11.00 [facility] Comment on above: Order Comment: Speci men Type: BLOOD SPECIMENOrdering Facility: [facility] Address: [facility] [place] [address] Performed By: #### 5 8410-2 ####[facility] LABCLIA [id number] [place] [address] [place] HbA1c (Bld)on 10-06-2023 Average glucose Estimated from glycated hemoglobin (Bld) [Mass/Vol] 126 mg/dL Normal [facility] Comment on above: Order Comment: Specjonas men Type: BLOOD SPECIMENOrdering Facility: [facility] Address: [address] [place] [address] Result Comment: eAG: (Estimated average glucose) is a calculated value from HgbA1c and is wholesale representative of the average blood glucose level in the last 2-3 month period. Performed By: #### 5 5454-3 ####[facility] LABCLIA [id number] [place] [address] [place] HbA1c (Bld) [Mass fraction] 6.0 % High 4.3-5.6 [facility] Comment on above: Order Comment: Lzu vaughan Type: BLOOD SPECIMENOrdering Facility: [facility] Address: [address] [place] [address] Result Comment: [place] Diabetes Association guidelines indicate that patients with HgbA1c in the range 5.7-6.4% are at increased risk for development of diabetes, and intervention by lifestyle modification may be beneficial. HgbA1c greater or equal to 6.5% is considered diagnostic of diabetes. Performed By: #### 5 5454-3 ####[facility] LABCLIA [id number] [place] [address] [place] NUTRITIONon 10-06-2023 NUTRITION Normal [facility] THERAPY NTon 10-06-2023 THERAPY NT Normal [facility] THERAPY NT Normal [facility] HISTORY PHYSICALon HISTORY PHYSICAL Normal [facility] THERAPY NTon 10-04-2023 THERAPY NT Normal [facility] CNPNon 08-01-2023 CNPN Normal [facility] CNOVon 07-12-2023 CNOV Normal [facility] UA DIP, URINE (POC)on 2023 BILIRUBIN UA (POCT) Negative Negative [facility] CLARITY UA (POCT) Clear [facility] COLOR UA (POCT) Yellow [facility] GLUCOSE UA (POCT) Negative Negative mg/dL [facility] Hemoglobin Ql (U) Trace-intact Abnormal Negative [facility] KETONE UA (POCT) Negative Negative mg/dL [facility] LEUKOCYTES UA (POCT) Negative [facility] NITRITE UA (POCT) Negative Negative [facility] PH UA (POCT) 5.5 4.5 - 8.0 [facility] Protein Ql (U) >=300 Abnormal Negative mg/dL [facility] SPECIFIC GRAVITY UA (POCT) >=1.030 1.005 - 1.030 [facility] UROBILINOGEN UA (POCT) 0.2 E.U./dL Normal E.U./dL [facility] Basic metabolic 2000 panelon 06-13-2023 Anion gap [Moles/Vol] 10 mmol/L Normal 9-18 [facility] Comment on above: Order Comment: Speci men Type: BLOOD SPECIMENOrdering Facility: [facility] Address: [address] [place] [address] Performed By: #### 2 4321-2 ####[facility] [employer] LABCLIA [id number] [place] [id number] [place] Calcium [Mass/Vol] 8.6 mg/dL Normal 8.5-10.2 [facility] Comment on above: Order Comment: Speci men Type: BLOOD SPECIMENOrdering Facility: [facility] Address: [address] [place] [address] Performed By: #### 2 4321-2 ####[facility] [place] LABCLIA [id number] [place] [address] [place] Chloride [Moles/Vol] 105 mmol/L Normal 97-105 [facility] Comment on above: Order Comment: Speci men Type: BLOOD SPECIMENOrdering Facility: [facility] Address: [address] [place] [address] Performed By: #### 2 4321-2 ####[facility] [employer] LABCLIA [id number] [place] [address] [place] CO2 [Moles/Vol] 26 mmol/L Normal 22-30 [facility] Comment on above: Order Comment: Speci men Type: BLOOD SPECIMENOrdering Facility: [facility] Address: [address] [place] [address] Performed By: #### 2 4321-2 ####[facility] LABCLIA [id number] [place] [address] [place] Creatinine [Mass/Vol] 2.17 mg/dL High 0.73-1.22 [facility] Comment on above: Order Comment: Speci men Type: BLOOD SPECIMENOrdering Facility: [facility] Address: [address] [place] [address] Performed By: #### 2 4321-2 ####[facility] LABCLIA [id number] [place] [id number] [facility] Creatinine and Glomerular filtration rate.predicted panel (S/P/Bld) 33 mL/min/1.73m??? Low >=60 [facility] Comment on above: Order Comment: Speci men Type: BLOOD SPECIMENOrdering Facility: [facility] Address: [address] [place] [address] Result Comment: Breanne mated Glomerular Filtration Rate [...] actual GFR. Performed By: #### 2 4321-2 ####[facility] LABCLIA [id number] [place] [address] [place] Glucose [Mass/Vol] 158 mg/dL High 74-99 [facility] Comment on above: Order Comment: Speci men Type: BLOOD SPECIMENOrdering Facility: [facility] Address: [address] [place] [address] Result Comment: The [place] Diabetes Association (ADA) provides guidance for cutoff [...] Standards of Medical Care in Diabetes 2016, [place] Diabetes Association. Diabetes Care. 2016.39(Suppl 1). Performed By: #### 2 4321-2 ####[facility] [place] LABCLIA [id number] [place] [address] [place] Potassium [Moles/Vol] 4.7 mmol/L Normal 3.7-5.1 [facility] Comment on above: Order Comment: Speci men Type: BLOOD SPECIMENOrdering Facility: [facility] Address: [address] [place] [address] Performed By: #### 2 4321-2 ####[facility] [employer] LABCLIA [id number] [place] [address] [place] Sodium [Moles/Vol] 141 mmol/L Normal 136-144 [facility] Comment on above: Order Comment: Speci men Type: BLOOD SPECIMENOrdering Facility: [facility] Address: [address] [place] [address] Performed By: #### 2 4321-2 ####[facility] [place] LABCLIA [id number] [place] [address] [place] Urea nitrogen [Mass/Vol] 46 mg/dL High 9-24 [facility] Comment on above: Order Comment: Speci men Type: BLOOD SPECIMENOrdering Facility: [facility] Address: [address] [place] [address] Performed By: #### 2 4321-2 ####[facility] [place] LABCLIA [id number] [place] [address] [place] CNDSon 06-13-2023 CNDS Normal [facility] Albumin SerPl-mCncon 024 Albumin [Mass/Vol] 3.0 g/dL Low 3.9-4.9 [facility] Comment on above: Order Comment: Speci men Type: BLOOD SPECIMENOrdering Facility: [facility] Address: [address] [place] [address] Performed By: #### 1 751-7, 76265-0, 277- ####[facility] LABCLIA [id number] [place] [address] [place] Basic metabolic 2000 panelon 06-12-2023 Anion gap [Moles/Vol] 9 mmol/L Normal 9-18 [facility] Comment on above: Order Comment: Speci men Type: BLOOD SPECIMENOrdering Facility: [facility] Address: [address] [place] [address] Performed By: #### 1 751-7, 11219-1, 2776-1 ####[facility] LABCLIA [id number] [place] [address] [place] Calcium [Mass/Vol] 8.9 mg/dL Normal 8.5-10.2 [facility] Comment on above: Order Comment: Speci men Type: BLOOD SPECIMENOrdering Facility: [facility] Address: [address] [place] [address] Performed By: #### 1 751-7, 03757-2, 277- ####[facility] LABCLIA [id number] [place] [address] [place] Chloride [Moles/Vol] 107 mmol/L High 97-105 [facility] Comment on above: Order Comment: Speci men Type: BLOOD SPECIMENOrdering Facility: [facility] Address: [address] [place] [address] Performed By: #### 1 751-7, 70363-4, 2777-1 ####[facility] LABCLIA [id number] [place] [address] [place] CO2 [Moles/Vol] 28 mmol/L Normal 22-30 [facility] Comment on above: Order Comment: Speci men Type: BLOOD SPECIMENOrdering Facility: [facility] Address: [address] [place] [address] Performed By: #### 1 751-7, 02387-1, 2776- ####[facility] LABCLIA [id number] [place] [address] [place] Creatinine [Mass/Vol] 2.34 mg/dL High 0.73-1.22 [facility] Comment on above: Order Comment: Speci men Type: BLOOD SPECIMENOrdering Facility: [facility] Address: [address] [place] [address] Performed By: #### 1 751-7, 19520-9, 2776-04 ####[facility] LABIA [id number] [place] [address] [place] Creatinine and Glomerular filtration rate.predicted panel (S/P/Bld) 30 mL/min/1.73m??? Low >=60 [facility] Comment on above: Order Comment: Speci men Type: BLOOD SPECIMENOrdering Facility: [facility] Address: [address] [place] [address] Result Comment: Breanne mated Glomerular Filtration Rate [...] actual GFR. Performed By: #### 1 751-7, 79994-4, 2776- ####[facility] LABCLIA [id number] [place] [address] [place] Glucose [Mass/Vol] 148 mg/dL High 74-99 [facility] Comment on above: Order Comment: Speci men Type: BLOOD SPECIMENOrdering Facility: [facility] Address: [address] [place] [address] Result Comment: The [place] Diabetes Association (ADA) provides guidance for cutoff [...] Standards of Medical Care in Diabetes 2016, [place] Diabetes Association. Diabetes Care. 2016.39(Suppl 1). Performed By: #### 1 751-7, 61272-3, 277- ####[facility] [employer] LABCLIA [id number] [place] [address] [place] Potassium [Moles/Vol] 5.6 mmol/L High 3.7-5.1 [facility] Comment on above: Order Comment: Luz vaughan Type: BLOOD SPECIMENOrdering Facility: [facility] Address: [address] [place] [address] Performed By: #### 1 751-7, 20360-0, 2776- ####[facility] [employer] LABCLIA [id number] [place] [address] [place] Sodium [Moles/Vol] 144 mmol/L Normal 136-144 [facility] Comment on above: Order Comment: Luz vaughan Type: BLOOD SPECIMENOrdering Facility: [facility] Address: [address] [place] [address] Performed By: #### 1 751-7, 82221-2, 2776- ####[facility] [place] LABCLIA [id number] [place] [address] [place] Urea nitrogen [Mass/Vol] 47 mg/dL High 9-24 [facility] Comment on above: Order Comment: Speci men Type: BLOOD SPECIMENOrdering Facility: [facility] Address: [address] [place] [address] Performed By: #### 1 751-7, 04320-2, 2777-1 ####[facility] LABCLIA [id number] [place] [address] [place] CASE MANAGEMon 06-12-2023 CASE MANAGEM Normal [facility] HISTORY PHYSICALon HISTORY PHYSICAL Normal [facility] POTASSIUM BLDon 06-12-2023 Potassium [Moles/Vol] 4.5 mmol/L Normal 3.7-5.1 Nyr [facility] Comment on above: Order Comment: Speci men Type: BLOOD SPECIMENOrdering Facility: [facility] Address: [address] [place] [address] Performed By: #### K 1 ####[facility] LABCLIA [id number] [place] [address] [place] [facility] Potassium [Moles/Vol] 5.8 mmol/L High 3.7-5.1 [facility] Comment on above: Order Comment: Speci men Type: BLOOD SPECIMENOrdering Facility: [facility] Address: [address] [place] [address] Performed By: #### K 1 ####[facility] LABCLIA [id number] [place] [address] [facility] [place] Phosphate SerPl-mCncon 06-11 Phosphate [Mass/Vol] 4.6 mg/dL Normal 2.7-4.8 [facility] Comment on above: Order Comment: Speci men Type: BLOOD SPECIMENOrdering Facility: [facility] Address: [address] [place] [address] Performed By: #### 1 751-7, 10952-5, 2777-1 ####[facility] LABCLIA [id number] [place] [address] [facility] THERAPY NTon 06-12-2023 THERAPY NT Normal [facility] THERAPY NT Normal [facility] Basic metabolic 2000 panelon 06-11-2023 Anion gap [Moles/Vol] 8 mmol/L Low 9-18 [facility] Comment on above: Order Comment: Speci men Type: BLOOD SPECIMENOrdering Facility: [facility] Address: [address] [place] [address] Performed By: #### 2 4321-2 ####[facility] [place] LABCLIA [id number] [facility] [address] [place] Calcium [Mass/Vol] 8.7 mg/dL Normal 8.5-10.2 [facility] Comment on above: Order Comment: Speci men Type: BLOOD SPECIMENOrdering Facility: [facility] Address: [address] [place] [address] Performed By: #### 2 4321-2 ####[facility] [place] LABCLIA [id number] [facility] [address] [place] Chloride [Moles/Vol] 106 mmol/L High 97-105 [facility] Comment on above: Order Comment: Speci men Type: BLOOD SPECIMENOrdering Facility: [facility] Address: [address] [place] [address] Performed By: #### 2 4321-2 ####[facility] [place] LABCLIA [id number] [facility] [address] [place] CO2 [Moles/Vol] 28 mmol/L Normal 22-30 [facility] Comment on above: Order Comment: Speci men Type: BLOOD SPECIMENOrdering Facility: [facility] Address: [address] [place] [address] Performed By: #### 2 4321-2 ####[facility] [place] LABCLIA [id number] [facility] [address] [place] Creatinine [Mass/Vol] 2.24 mg/dL High 0.73-1.22 [facility] Comment on above: Order Comment: Speci men Type: BLOOD SPECIMENOrdering Facility: [facility] Address: [address] [place] [address] Performed By: #### 2 4321-2 ####[facility] [employer] LABCLIA [id number] [place] [id number] [facility] Creatinine and Glomerular filtration rate.predicted panel (S/P/Bld) 32 mL/min/1.73m??? Low >=60 [facility] Comment on above: Order Comment: Luz vaughan Type: BLOOD SPECIMENOrdering Facility: [facility] Address: [address] [place] [address] Result Comment: Breanne mated Glomerular Filtration Rate [...] actual GFR. Performed By: #### 2 4321-2 ####[facility] LABIA [id number] [place] [id number] [place] [facility] Glucose [Mass/Vol] 126 mg/dL High 74-99 [facility] Comment on above: Order Comment: Luz vaughan Type: BLOOD SPECIMENOrdering Facility: [facility] Address: [address] [place] [address] Result Comment: The [place] Diabetes Association (ADA) provides guidance for cutoff [...] Standards of Medical Care in Diabetes 2016, [place] Diabetes Association. Diabetes Care. 2016.39(Suppl 1). Performed By: #### 2 4321-2 ####[facility] [employer] LABCLIA [id number] [place] [address] [place] Potassium [Moles/Vol] 4.9 mmol/L Normal 3.7-5.1 [facility] Comment on above: Order Comment: Speci men Type: BLOOD SPECIMENOrdering Facility: [facility] Address: [address] [place], [place] [address] Performed By: #### 2 4321-2 ####[facility] LABCLIA [id number] [facility] [address] [place] Sodium [Moles/Vol] 142 mmol/L Normal 136-144 [facility] Comment on above: Order Comment: Speci men Type: BLOOD SPECIMENOrdering Facility: [facility] Address: [address] [place] [address] Performed By: #### 2 4321-2 ####[facility] LABCLIA [id number] [place] [address] [place] Urea nitrogen [Mass/Vol] 45 mg/dL High 9-24 [facility] Comment on above: Order Comment: Speci men Type: BLOOD SPECIMENOrdering Facility: [facility] Address: [address] [place] [address] Performed By: #### 2 4321-2 ####[facility] LABCLIA [id number] [place] [address] [place] CNDSon 06-11-2023 CNDS Normal [facility] NURSING PROGon 06-10-2023 NURSING PROG Normal [facility] NURSING PROG Normal [facility] Basic metabolic 2000 panelon 06-09-2023 Anion gap [Moles/Vol] 9 mmol/L Normal 9-18 [facility] Comment on above: Order Comment: Speci men Type: BLOOD SPECIMENOrdering Facility: [facility] Address: [address] [place] [address] Performed By: #### 2 4321-2 ####[facility] LABCLIA [id number] [facility] [address] [place] [place] Calcium [Mass/Vol] 8.7 mg/dL Normal 8.5-10.2 [facility] Comment on above: Order Comment: Speci men Type: BLOOD SPECIMENOrdering Facility: [facility] Address: [address] [place] [address] Performed By: #### 2 4321-2 ####[facility] [place] LABCLIA [id number] [place] [address] [place] Chloride [Moles/Vol] 105 mmol/L Normal 97-105 [facility] Comment on above: Order Comment: Speci men Type: BLOOD SPECIMENOrdering Facility: [facility] Address: [address] [place] [address] Performed By: #### 2 4321-2 ####[facility] [place] LABCLIA [id number] [place] [address] [place] CO2 [Moles/Vol] 27 mmol/L Normal 22-30 [facility] Comment on above: Order Comment: Speci men Type: BLOOD SPECIMENOrdering Facility: [facility] Address: [address] [place] [address] Performed By: #### 2 4321-2 ####[facility] LABCLIA [id number] [place] [address] [place] Creatinine [Mass/Vol] 2.25 mg/dL High 0.73-1.22 [facility] Comment on above: Order Comment: Speci men Type: BLOOD SPECIMENOrdering Facility: [facility] Address: [address] [place] [address] Performed By: #### 2 4321-2 ####[facility] [place] LABCLIA [id number] [place] [address] [place] [facility] [place] Creatinine and Glomerular filtration rate.predicted panel (S/P/Bld) 32 mL/min/1.73m??? Low >=60 [facility] Comment on above: Order Comment: Speci men Type: BLOOD SPECIMENOrdering Facility: [facility] Address: [address] [place] [address] Result Comment: Breanne mated Glomerular Filtration Rate [...] actual GFR. Performed By: #### 2 4321-2 ####[facility] [employer] LABCLIA [id number] [place] [address] [place] Glucose [Mass/Vol] 151 mg/dL High 74-99 [facility] Comment on above: Order Comment: Luz vaughan Type: BLOOD SPECIMENOrdering Facility: [facility] Address: [address] [place] [address] Result Comment: The [place] Diabetes Association (ADA) provides guidance for cutoff [...] Standards of Medical Care in Diabetes 2016, [place] [employer]. Diabetes Care. 2016.39(Suppl 1). Performed By: #### 2 4321-2 ####[facility] [employer] LABCLIA [id number] [place] [address] [place] Potassium [Moles/Vol] 5.0 mmol/L Normal 3.7-5.1 [facility] Comment on above: Order Comment: Luz vaughan Type: BLOOD SPECIMENOrdering Facility: [facility] Address: [address] [id number] Performed By: #### 2 4321-2 ####[facility] [employer] LABCLIA [id number] [place] [address] [place] Sodium [Moles/Vol] 141 mmol/L Normal 136-144 [facility] Comment on above: Order Comment: Speci men Type: BLOOD SPECIMENOrdering Facility: [facility] Address: [address] [place] [address] Performed By: #### 2 4321-2 ####[facility] [place] LABCLIA [id number] [facility] [place] [address] [place] Urea nitrogen [Mass/Vol] 48 mg/dL High 9-24 [facility] Comment on above: Order Comment: Speci men Type: BLOOD SPECIMENOrdering Facility: [facility] Address: [address] [place] [address] Performed By: #### 2 4321-2 ####[facility] [place] LABCLIA [id number] [place] [address] [place] NURSING PROGon 06-09-2023 NURSING PROG Normal [facility] PT EDon 06-09-2023 PT ED Normal [facility] SOCIAL WORKon 06-09-2023 SOCIAL WORK Normal [facility] THERAPY NTon 06-09-2023 THERAPY NT Normal [facility] THERAPY NT Normal [facility] THERAPY NT Normal [facility] Basic metabolic 2000 panelon 06-08-2023 Anion gap [Moles/Vol] 11 mmol/L Normal 9-18 [facility] Comment on above: Order Comment: Speci men Type: BLOOD SPECIMENOrdering Facility: [facility] Address: [address] [place] [address] Performed By: #### 2 4321-2 ####[facility] [place] LABCLIA [id number] [place] [address] [place] Calcium [Mass/Vol] 9.2 mg/dL Normal 8.5-10.2 [facility] Comment on above: Order Comment: Speci men Type: BLOOD SPECIMENOrdering Facility: [facility] Address: [address] [place], [place] [address] Performed By: #### 2 4321-2 ####[facility] [place] LABCLIA [id number] [place] [address] [place] Chloride [Moles/Vol] 105 mmol/L Normal 97-105 [facility] Comment on above: Order Comment: Speci men Type: BLOOD SPECIMENOrdering Facility: [facility] Address: [address] [place] [address] Performed By: #### 2 4321-2 ####[facility] LABCLIA [id number] [place] [address] [place] CO2 [Moles/Vol] 27 mmol/L Normal 22-30 [facility] Comment on above: Order Comment: Speci men Type: BLOOD SPECIMENOrdering Facility: [facility] Address: [address] [place] [address] Performed By: #### 2 4321-2 ####[facility] LABCLIA [id number] [place] [address] [place] [facility] Creatinine [Mass/Vol] 2.23 mg/dL High 0.73-1.22 [facility] Comment on above: Order Comment: Speci men Type: BLOOD SPECIMENOrdering Facility: [facility] Address: [address] [place] [address] Performed By: #### 2 4321-2 ####[facility] LABCLIA [id number] [place] [id number] [facility] Creatinine and Glomerular filtration rate.predicted panel (S/P/Bld) 32 mL/min/1.73m??? Low >=60 [facility] Comment on above: Order Comment: Speci men Type: BLOOD SPECIMENOrdering Facility: [facility] Address: [address] [place] [address] Result Comment: Breanne mated Glomerular Filtration Rate [...] actual GFR. Performed By: #### 2 4321-2 ####[facility] [employer] LABCLIA [id number] [place] [address] [place] Glucose [Mass/Vol] 131 mg/dL High 74-99 [facility] Comment on above: Order Comment: Luz clement Type: BLOOD SPECIMENOrdering Facility: [facility] Address: [address] [place], [place] [address] Result Comment: The [place] Diabetes Association (ADA) provides guidance for cutoff [...] Standards of Medical Care in Diabetes 2016, [place] Diabetes [employer]. Diabetes Care. 2016.39(Suppl 1). Performed By: #### 2 4321-2 ####[facility] [employer] LABCLIA [id number] [place] [address] [place] Potassium [Moles/Vol] 5.8 mmol/L High 3.7-5.1 [facility] Comment on above: Order Comment: Luz clement Type: BLOOD SPECIMENOrdering Facility: [facility] Address: [address] [place] [address] Performed By: #### 2 4321-2 ####[facility] [place] LABCLIA [id number] [place] [address] [place] Sodium [Moles/Vol] 143 mmol/L Normal 136-144 [facility] Comment on above: Order Comment: Luz clement Type: BLOOD SPECIMENOrdering Facility: [facility] Address: [address] [place], [place] [address] Performed By: #### 2 4321-2 ####[facility] [place] LABCLIA [id number] [place] [address] [place] Urea nitrogen [Mass/Vol] 47 mg/dL High 9-24 [facility] Comment on above: Order Comment: Speci men Type: BLOOD SPECIMENOrdering Facility: [facility] Address: [address] [place] [address] Performed By: #### 2 4321-2 ####[facility] [place] LABCLIA [id number] [place] [address] [place] Anion gap [Moles/Vol] 10 mmol/L Normal 9-18 [facility] Comment on above: Order Comment: Speci men Type: BLOOD SPECIMENOrdering Facility: [facility] Address: [address] [place] [address] Performed By: #### 2 4321-2 ####[facility] [place] LABCLIA [id number] [place] [address] [place] Calcium [Mass/Vol] 9.1 mg/dL Normal 8.5-10.2 [facility] Comment on above: Order Comment: Speci men Type: BLOOD SPECIMENOrdering Facility: [facility] Address: [address] [place] [address] Performed By: #### 2 4321-2 ####[facility] [place] LABCLIA [id number] [place] [facility] [address] [place] Chloride [Moles/Vol] 104 mmol/L Normal 97-105 [facility] Comment on above: Order Comment: Speci men Type: BLOOD SPECIMENOrdering Facility: [facility] Address: [address] [place] [address] Performed By: #### 2 4321-2 ####[facility] [place] LABCLIA [id number] [place] [address] [place] CO2 [Moles/Vol] 27 mmol/L Normal 22-30 [facility] Comment on above: Order Comment: Speci men Type: BLOOD SPECIMENOrdering Facility: [facility] Address: [address] [place] [address] Performed By: #### 2 4321-2 ####[facility] [place] LABCLIA [id number] [place] [address] [place] Creatinine [Mass/Vol] 2.26 mg/dL High 0.73-1.22 [facility] Comment on above: Order Comment: Luz vaughan Type: BLOOD SPECIMENOrdering Facility: [facility] Address: [address] [place] [address] Performed By: #### 2 4321-2 ####[facility] LABCLIA [id number] [place] [id number] [facility] [place] Creatinine and Glomerular filtration rate.predicted panel (S/P/Bld) 32 mL/min/1.73m??? Low >=60 [facility] Comment on above: Order Comment: Luz vaughan Type: BLOOD SPECIMENOrdering Facility: [facility] Address: [address] [place] [address] Result Comment: Breanne mated Glomerular Filtration Rate [...] actual GFR. Performed By: #### 2 4321-2 ####[facility] LABCLIA [id number] [place] [address] [place] Glucose [Mass/Vol] 166 mg/dL High 74-99 [facility] Comment on above: Order Comment: Luz vaguhan Type: BLOOD SPECIMENOrdering Facility: [facility] Address: [address] [place] [address] Result Comment: The [place] Diabetes Association (ADA) provides guidance for cutoff [...] Standards of Medical Care in Diabetes 2016, [place] Diabetes Association. Diabetes Care. 2016.39(Suppl 1). Performed By: #### 2 4321-2 ####[facility] [place] LABCLIA [id number] [place] [address] [place] Potassium [Moles/Vol] 5.7 mmol/L High 3.7-5.1 [facility] Comment on above: Order Comment: Speci men Type: BLOOD SPECIMENOrdering Facility: [facility] Address: [address] [place] [address] Performed By: #### 2 4321-2 ####[facility] [place] LABCLIA [id number] [place] [address] [place] Sodium [Moles/Vol] 141 mmol/L Normal 136-144 [facility] Comment on above: Order Comment: Speci men Type: BLOOD SPECIMENOrdering Facility: [facility] Address: [address] [place] [address] Performed By: #### 2 4321-2 ####[facility] [place] LABCLIA [id number] [place] [address] [place] Urea nitrogen [Mass/Vol] 50 mg/dL High 9-24 [facility] Comment on above: Order Comment: Speci men Type: BLOOD SPECIMENOrdering Facility: [facility] Address: [address] [place] [address] Performed By: #### 2 4321-2 ####[facility] [place] LABCLIA [id number] [place] [address] [place] POTASSIUM BLDon 06-08-2023 Potassium [Moles/Vol] 5.0 mmol/L Normal 3.7-5.1 [facility] Comment on above: Order Comment: Speci men Type: BLOOD SPECIMENOrdering Facility: [facility] Address: [address] [place] [address] Performed By: #### K 1 ####[facility] [place] LABCLIA [id number] [place] [address] [place] SOCIAL WORKon 06-08-2023 SOCIAL WORK Normal [facility] THERAPY NTon 06-08-2023 THERAPY NT Normal [facility] THERAPY NT Normal [facility] Basic metabolic 2000 panelon 06-07-2023 Anion gap [Moles/Vol] 10 mmol/L Normal 9-18 [facility] Comment on above: Order Comment: Speci men Type: BLOOD SPECIMENOrdering Facility: [facility] Address: [address] [place] [address] Performed By: #### 2 4321-2 ####[facility] [place] LABCLIA [id number] [place] [address] [place] Calcium [Mass/Vol] 9.3 mg/dL Normal 8.5-10.2 [facility] Comment on above: Order Comment: Speci men Type: BLOOD SPECIMENOrdering Facility: [facility] Address: [address] [place] [address] Performed By: #### 2 4321-2 ####[facility] [place] LABCLIA [id number] [place] [address] [place] Chloride [Moles/Vol] 108 mmol/L High 97-105 [facility] Comment on above: Order Comment: Speci men Type: BLOOD SPECIMENOrdering Facility: [facility] Address: [address] [place] [address] Performed By: #### 2 4321-2 ####[facility] [place] LABCLIA [id number] [place] [address] [place] CO2 [Moles/Vol] 28 mmol/L Normal 22-30 [facility] Comment on above: Order Comment: Speci men Type: BLOOD SPECIMENOrdering Facility: [facility] Address: [address] [place] [address] Performed By: #### 2 4321-2 ####[facility] [place] LABCLIA [id number] [place] [address] [place] Creatinine [Mass/Vol] 2.43 mg/dL High 0.73-1.22 [facility] Comment on above: Order Comment: Luz clement Type: BLOOD SPECIMENOrdering Facility: [facility] Address: [address] [place] [address] Performed By: #### 2 4321-2 ####[facility] LABCLIA [id number] [place] [address] [place] Creatinine and Glomerular filtration rate.predicted panel (S/P/Bld) 29 mL/min/1.73m??? Low >=60 [facility] Comment on above: Order Comment: Luz vaughan Type: BLOOD SPECIMENOrdering Facility: [facility] Address: [address] [place] [address] Result Comment: Breanne mated Glomerular Filtration Rate [...] actual GFR. Performed By: #### 2 4321-2 ####[facility] LABCLIA [id number] [place] [address] [place] Glucose [Mass/Vol] 139 mg/dL High 74-99 [facility] Comment on above: Order Comment: Luz clement Type: BLOOD SPECIMENOrdering Facility: [facility] Address: [address] [place] [address] Result Comment: The [place] Diabetes Association (ADA) provides guidance for cutoff [...] Standards of Medical Care in Diabetes 2016, [place] Diabetes Association. Diabetes Care. 2016.39(Suppl 1). Performed By: #### 2 4321-2 ####[facility] [place] LABCLIA [id number] [facility] [address] [place] Potassium [Moles/Vol] 5.8 mmol/L High 3.7-5.1 [facility] Comment on above: Order Comment: Speci men Type: BLOOD SPECIMENOrdering Facility: [facility] Address: [address] [place] [address] Performed By: #### 2 4321-2 ####[facility] [place] LABCLIA [id number] [facility] [address] [place] [facility] Sodium [Moles/Vol] 146 mmol/L High 136-144 [facility] Comment on above: Order Comment: Speci men Type: BLOOD SPECIMENOrdering Facility: [facility] Address: [address] [place] [address] Performed By: #### 2 4321-2 ####[facility] [employer] LABCLIA [id number] [place] [address] [place] Urea nitrogen [Mass/Vol] 53 mg/dL High 9-24 [facility] Comment on above: Order Comment: Speci men Type: BLOOD SPECIMENOrdering Facility: [facility] Address: [address] [place] [address] Performed By: #### 2 4321-2 ####[facility] [place] LABCLIA [id number] [place] [address] [place] Comprehensive metabolic 2000 panelon 06-07-2023 Albumin [Mass/Vol] 3.1 g/dL Low 3.9-4.9 [facility] Comment on above: Order Comment: Speci men Type: BLOOD SPECIMENOrdering Facility: [facility] Address: [address] [place] [address] Performed By: #### 2 4323-8 ####[facility] [place] LABCLIA [id number] [facility] [address] [place] ALP [Catalytic activity/Vol] 112 U/L Normal 38-113 [facility] Comment on above: Order Comment: Speci men Type: BLOOD SPECIMENOrdering Facility: [facility] Address: [address] [place] [address] Performed By: #### 2 4323-8 ####[facility] [place] LABCLIA [id number] [facility] [address] [place] ALT With P-5'-P [Catalytic activity/Vol] 25 U/L Normal 10-54 [facility] Comment on above: Order Comment: Speci men Type: BLOOD SPECIMENOrdering Facility: [facility] Address: [address] [place] [address] Performed By: #### 2 4323-8 ####[facility] [place] LABCLIA [id number] [facility] [place] [address] [place] Anion gap [Moles/Vol] 12 mmol/L Normal 9-18 [facility] Comment on above: Order Comment: Speci men Type: BLOOD SPECIMENOrdering Facility: [facility] Address: [address] [place] [address] Performed By: #### 2 4323-8 ####[facility] [place] LABCLIA [id number] [facility] [address] [place] AST With P-5'-P [Catalytic activity/Vol] 20 U/L Normal 14-40 [facility] Comment on above: Order Comment: Speci men Type: BLOOD SPECIMENOrdering Facility: [facility] Address: [address] [place] [address] Performed By: #### 2 4323-8 ####[facility] [place] LABCLIA [id number] [facility] [address] [place] Bilirubin [Mass/Vol] mg/dL Low 0.2-1.3 [facility] Comment on above: Order Comment: Speci men Type: BLOOD SPECIMENOrdering Facility: [facility] Address: [address] [place] [address] Performed By: #### 2 4323-8 ####[facility] [place] LABCLIA [id number] [place] [address] [place] Calcium [Mass/Vol] 9.0 mg/dL Normal 8.5-10.2 [facility] Comment on above: Order Comment: Speci men Type: BLOOD SPECIMENOrdering Facility: [facility] Address: [address] [place] [address] Performed By: #### 2 4323-8 ####[facility] [place] LABCLIA [id number] [facility] [address] [place] Chloride [Moles/Vol] 105 mmol/L Normal 97-105 [facility] Comment on above: Order Comment: Speci men Type: BLOOD SPECIMENOrdering Facility: [facility] Address: [address] [place] [address] Performed By: #### 2 4323-8 ####[facility] [place] LABCLIA [id number] [facility] [address] [place] CO2 [Moles/Vol] 24 mmol/L Normal 22-30 [facility] Comment on above: Order Comment: Speci men Type: BLOOD SPECIMENOrdering Facility: [facility] Address: [address] [place] [address] Performed By: #### 2 4323-8 ####[facility] LABCLIA [id number] [place] [address] [place] Creatinine [Mass/Vol] 2.22 mg/dL High 0.73-1.22 [facility] Comment on above: Order Comment: Speci men Type: BLOOD SPECIMENOrdering Facility: [facility] Address: [address] [place] [address] Performed By: #### 2 4323-8 ####[facility] [place] LABCLIA [id number] [place] [address] [facility] [place] Creatinine and Glomerular filtration rate.predicted panel (S/P/Bld) 32 mL/min/1.73m??? Low >=60 [facility] Comment on above: Order Comment: Speci men Type: BLOOD SPECIMENOrdering Facility: [facility] Address: [address] [place] [address] Result Comment: Breanne mated Glomerular Filtration Rate [...] actual GFR. Performed By: #### 2 4323-8 ####[facility] [employer] LABCLIA [id number] [place] [address] [place] Glucose [Mass/Vol] 103 mg/dL High 74-99 [facility] Comment on above: Order Comment: Luz vaughan Type: BLOOD SPECIMENOrdering Facility: [facility] Address: [address] [place] [address] Result Comment: The [place] Diabetes Association (ADA) provides guidance for cutoff [...] Standards of Medical Care in Diabetes 2016, [place] [employer]. Diabetes Care. 2016.39(Suppl 1). Performed By: #### 2 4323-8 ####[facility] [employer] LABCLIA [id number] [place] [address] [place] Potassium [Moles/Vol] 4.9 mmol/L Normal 3.7-5.1 [facility] Comment on above: Order Comment: Luz vaughan Type: BLOOD SPECIMENOrdering Facility: [facility] Address: [address] [place] [address] Performed By: #### 2 4323-8 ####[facility] [employer] LABCLIA [id number] [place] [address] [place] Protein [Mass/Vol] 6.1 g/dL Low 6.3-8.0 [facility] Comment on above: Order Comment: Speci men Type: BLOOD SPECIMENOrdering Facility: [facility] Address: [address] [place] [address] Performed By: #### 2 4323-8 ####[facility] [place] LABCLIA [id number] [place] [address] [place] Sodium [Moles/Vol] 141 mmol/L Normal 136-144 [facility] Comment on above: Order Comment: Speci men Type: BLOOD SPECIMENOrdering Facility: [facility] Address: [address] [place] [address] Performed By: #### 2 4323-8 ####[facility] LABCLIA [id number] [place] [address] [place] Urea nitrogen [Mass/Vol] 49 mg/dL High 9-24 [facility] Comment on above: Order Comment: Speci men Type: BLOOD SPECIMENOrdering Facility: [facility] Address: [address] [place] [address] Performed By: #### 2 4323-8 ####[facility] [place] LABCLIA [id number] [place] [address] [place] SOCIAL WORKon 06-07-2023 SOCIAL WORK Normal [facility] THERAPY NTon 06-07-2023 THERAPY NT Normal [facility] THERAPY NT Normal [facility] SOCIAL WORKon 06-06-2023 SOCIAL WORK Normal [facility] THERAPY NTon 06-06-2023 THERAPY NT Normal [facility] Basic metabolic 2000 panelon 06-05-2023 Anion gap [Moles/Vol] 9 mmol/L Normal 9-18 [facility] Comment on above: Order Comment: Speci men Type: BLOOD SPECIMENOrdering Facility: [facility] Address: [address] [place] [address] Performed By: #### 2 4321-2 ####[facility] [place] LABCLIA [id number] [place] [address] [place] Calcium [Mass/Vol] 8.7 mg/dL Normal 8.5-10.2 [facility] Comment on above: Order Comment: Speci men Type: BLOOD SPECIMENOrdering Facility: [facility] Address: [address] [place] [address] Performed By: #### 2 4321-2 ####[facility] [place] LABCLIA [id number] [facility] [address] [place] Chloride [Moles/Vol] 107 mmol/L High 97-105 [facility] Comment on above: Order Comment: Speci men Type: BLOOD SPECIMENOrdering Facility: [facility] Address: [address] [place] [address] Performed By: #### 2 4321-2 ####[facility] [place] LABCLIA [id number] [place] [address] [place] CO2 [Moles/Vol] 25 mmol/L Normal 22-30 [facility] Comment on above: Order Comment: Speci men Type: BLOOD SPECIMENOrdering Facility: [facility] Address: [address] [place] [address] Performed By: #### 2 4321-2 ####[facility] [place] LABCLIA [id number] [place] [address] [place] Creatinine [Mass/Vol] 2.20 mg/dL High 0.73-1.22 [facility] Comment on above: Order Comment: Speci men Type: BLOOD SPECIMENOrdering Facility: [facility] Address: [address] [place] [address] Performed By: #### 2 4321-2 ####[facility] [place] LABCLIA [id number] [place] [address] [facility] [place] Creatinine and Glomerular filtration rate.predicted panel (S/P/Bld) 33 mL/min/1.73m??? Low >=60 [facility] Comment on above: Order Comment: Speci men Type: BLOOD SPECIMENOrdering Facility: [facility] Address: [address] [place] [address] Result Comment: Breanne mated Glomerular Filtration Rate [...] actual GFR. Performed By: #### 2 4321-2 ####[facility] [employer] [employer] [facility] [id number] [place] [address] [place] Glucose [Mass/Vol] 148 mg/dL High 74-99 [facility] Comment on above: Order Comment: Luz vaughan Type: BLOOD SPECIMENOrdering Facility: [facility] Address: [address] [place] [address] Result Comment: The [place] Diabetes Association (ADA) provides guidance for cutoff [...] Standards of Medical Care in Diabetes 2016, [place] [employer]. Diabetes Care. 2016.39(Suppl 1). Performed By: #### 2 4321-2 ####[facility] [employer] LABCLIA [id number] [place] [address] [place] Potassium [Moles/Vol] 5.0 mmol/L Normal 3.7-5.1 [facility] Comment on above: Order Comment: Luz vaughan Type: BLOOD SPECIMENOrdering Facility: [facility] Address: [address] [place] [address] Performed By: #### 2 4321-2 ####[facility] LABCLIA [id number] [place] [address] [place] Sodium [Moles/Vol] 141 mmol/L Normal 136-144 [facility] Comment on above: Order Comment: Speci men Type: BLOOD SPECIMENOrdering Facility: [facility] Address: [address] [place] [address] Performed By: #### 2 4321-2 ####[facility] [place] LABCLIA [id number] [place] [address] [place] Urea nitrogen [Mass/Vol] 44 mg/dL High 9-24 [facility] Comment on above: Order Comment: Speci men Type: BLOOD SPECIMENOrdering Facility: [facility] Address: [address] [place] [address] Performed By: #### 2 4321-2 ####[facility] [place] LABCLIA [id number] [place] [address] [place] NUTRITIONon 06-05-2023 NUTRITION Normal [facility] PT EDon 06-05-2023 PT ED Normal [facility] SOCIAL WORKon 06-05-2023 SOCIAL WORK Normal [facility] SOCIAL WORK Normal [facility] THERAPY NTon 06-05-2023 THERAPY NT Normal [facility] THERAPY NT Normal [facility] Basic metabolic 2000 panelon 06-04-2023 Anion gap [Moles/Vol] 9 mmol/L Normal 9-18 [facility] Comment on above: Order Comment: Speci men Type: BLOOD SPECIMENOrdering Facility: [facility] Address: [address] [place] [address] Performed By: #### 2 4321-2 ####[facility] LABCLIA [id number] [place] [address] [place] Calcium [Mass/Vol] 8.7 mg/dL Normal 8.5-10.2 [facility] Comment on above: Order Comment: Speci men Type: BLOOD SPECIMENOrdering Facility: [facility] Address: [address] [place] [address] Performed By: #### 2 4321-2 ####[facility] [place] LABCLIA [id number] [place] [address] [place] Chloride [Moles/Vol] 106 mmol/L High 97-105 [facility] Comment on above: Order Comment: Speci men Type: BLOOD SPECIMENOrdering Facility: [facility] Address: [address] [place] [address] Performed By: #### 2 4321-2 ####[facility] [place] LABCLIA [id number] [place] [address] [place] CO2 [Moles/Vol] 26 mmol/L Normal 22-30 [facility] Comment on above: Order Comment: Speci men Type: BLOOD SPECIMENOrdering Facility: [facility] Address: [address] [place] [address] Performed By: #### 2 4321-2 ####[facility] LABCLIA [id number] [place] [address] [place] Creatinine [Mass/Vol] 2.33 mg/dL High 0.73-1.22 [facility] Comment on above: Order Comment: Speci men Type: BLOOD SPECIMENOrdering Facility: [facility] Address: [address] [place] [address] Performed By: #### 2 4321-2 ####[facility] LABCLIA [id number] [place] [address] [facility] Creatinine and Glomerular filtration rate.predicted panel (S/P/Bld) 31 mL/min/1.73m??? Low >=60 [facility] Comment on above: Order Comment: Speci men Type: BLOOD SPECIMENOrdering Facility: [facility] Address: [address] [place] [address] Result Comment: Breanne mated Glomerular Filtration Rate [...] actual GFR. Performed By: #### 2 4321-2 ####[facility] [employer] LABCLIA [id number] [place] [address] [place] Glucose [Mass/Vol] 150 mg/dL High 74-99 [facility] Comment on above: Order Comment: Luz clement Type: BLOOD SPECIMENOrdering Facility: [facility] Address: [address] [place] [address] Result Comment: The [place] Diabetes Association (ADA) provides guidance for cutoff [...] Standards of Medical Care in Diabetes 2016, [place] [employer]. Diabetes Care. 2016.39(Suppl 1). Performed By: #### 2 4321-2 ####[facility] [employer] LABCLIA [id number] [place] [address] [place] Potassium [Moles/Vol] 5.1 mmol/L Normal 3.7-5.1 [facility] Comment on above: Order Comment: Luz clement Type: BLOOD SPECIMENOrdering Facility: [facility] Address: [address] [place] [address] Performed By: #### 2 4321-2 ####[facility] LABCLIA [id number] [place] [address] [place] Sodium [Moles/Vol] 141 mmol/L Normal 136-144 [facility] Comment on above: Order Comment: Luz clement Type: BLOOD SPECIMENOrdering Facility: [facility] Address: [address] [place] [address] Performed By: #### 2 4321-2 ####[facility] [employer] LABCLIA [id number] [facility] [address] [place] Urea nitrogen [Mass/Vol] 45 mg/dL High 9-24 [facility] Comment on above: Order Comment: Speci men Type: BLOOD SPECIMENOrdering Facility: [facility] Address: [address] [place] [address] Performed By: #### 2 4321-2 ####[facility] [place] LABCLIA [id number] [place] [address] [place] CBC panel Auto (Bld)on 06-03 Erythrocyte distribution width (RBC) [Ratio] 12.9 % Normal 11.5-15.0 [facility] Comment on above: Order Comment: Speci men Type: BLOOD SPECIMENOrdering Facility: [facility] Address: [address] [place] [address] Performed By: #### 5 8410-2, WAMMR ####[facility] LABCLIA [id number] [place] [address] [place] [facility] Hematocrit (Bld) [Volume fraction] 35.5 % Low 39.0-51.0 [facility] Comment on above: Order Comment: Speci men Type: BLOOD SPECIMENOrdering Facility: [facility] Address: [address] [place] [address] Performed By: #### 5 8410-2, WAMMR ####[facility] LABCLIA [id number] [place] [address] [facility] [place] Hemoglobin (Bld) [Mass/Vol] 11.1 g/dL Low 13.0-17.0 [facility] Comment on above: Order Comment: Speci men Type: BLOOD SPECIMENOrdering Facility: [facility] Address: [address] [place] [address] Performed By: #### 5 8410-2, WAMMR ####[facility] LABCLIA [id number] [place] [address] [place] MCH (RBC) [Entitic mass] 28.5 pg Normal 26.0-34.0 [facility] Comment on above: Order Comment: Speci men Type: BLOOD SPECIMENOrdering Facility: [facility] Address: [address] [place] [address] Performed By: #### 5 8410-2, WAMMR ####[facility] LABCLIA [id number] [place] [address] [place] MCHC (RBC) [Mass/Vol] 31.3 g/dL Normal 30.5-36.0 [facility] Comment on above: Order Comment: Speci men Type: BLOOD SPECIMENOrdering Facility: [facility] Address: [address] [place] [address] Performed By: #### 5 8410-2, WAMMR ####[facility] LABCLIA [id number] [place] [address] [place] MCV (RBC) [Entitic vol] 91.0 fL Normal 80.0-100.0 [facility] Comment on above: Order Comment: Speci men Type: BLOOD SPECIMENOrdering Facility: [facility] Address: [address] [place] [address] Performed By: #### 5 8410-2, WAMMR ####[facility] LABCLIA [id number] [place] [address] [place] Platelet mean volume (Bld) [Entitic vol] 10.5 fL Normal 9.0-12.7 [facility] Comment on above: Order Comment: Speci men Type: BLOOD SPECIMENOrdering Facility: [facility] Address: [address] [place] [address] Performed By: #### 5 8410-2, WAMMR ####[facility] LABCLIA [id number] [place] [address] [place] Platelets (Bld) [#/Vol] 217 10*3/uL Normal 150-400 [facility] Comment on above: Order Comment: Speci men Type: BLOOD SPECIMENOrdering Facility: [facility] Address: [address], [place] [address] Result Comment: No c lot detected. Performed By: #### 5 8410-2, WAMMR ####[facility] [place] LABCLIA [id number] [place] [address] [place] [facility] RBC (Bld) [#/Vol] 3.90 10*6/uL Low 4.20-6.00 [facility] Comment on above: Order Comment: Speci men Type: BLOOD SPECIMENOrdering Facility: [facility] Address: [address] [place] [address] Performed By: #### 5 8410-2, WAMMR ####[facility] [employer] [employer] LABCLIA [id number] [place] [address] [facility] WBC (Bld) [#/Vol] 3.18 10*3/uL Low 3.70-11.00 [facility] Comment on above: Order Comment: Speci men Type: BLOOD SPECIMENOrdering Facility: [facility] Address: [address] [place] [address] Performed By: #### 5 8410-2, WAMMR ####[facility] [employer] LABCLIA [id number] [place] [address] [facility] MORPH WAM REFLEXon 4 Platelets Estimate (Bld) [#/Vol] Adequate Normal [facility] Comment on above: Order Comment: Speci men Type: BLOOD SPECIMENOrdering Facility: [facility] Address: [address] [place] [address] Performed By: #### 5 8410-2, WAMMR ####[facility] [place] LABCLIA [id number] [place] [address] [facility] Urinalysis complete panel (U )on 06-04-2023 Bilirubin Ql (U) Negative Normal Negative [facility] Comment on above: Order Comment: Speci men Type: URINE SPECIMENOrdering Facility: [facility] Address: [address] [place] [address] Performed By: #### 2 4356-8 ####[facility] [place] LABCLIA [id number] [place] [address] [facility] [place] Clarity (Unsp spec) Clear Normal Clear [facility] Comment on above: Order Comment: Speci men Type: URINE SPECIMENOrdering Facility: [facility] Address: [address] [place] [address] Performed By: #### 2 4356-8 ####[facility] [place] LABCLIA [id number] [facility] [address] [place] Color (U) Light Yellow Abnormal Yellow [facility] Comment on above: Order Comment: Speci men Type: URINE SPECIMENOrdering Facility: [facility] Address: [address] [place] [address] Performed By: #### 2 4356-8 ####[facility] [place] LABCLIA [id number] [facility] [address] [facility] Glucose Test strip (U) [Mass/Vol] 2+ Abnormal Negative [facility] Comment on above: Order Comment: Speci men Type: URINE SPECIMENOrdering Facility: [facility] Address: [address] [place] [address] Performed By: #### 2 4356-8 ####[facility] [place] LABCLIA [id number] [facility] [address] [place] Hemoglobin Ql (U) Trace Abnormal Negative [facility] Comment on above: Order Comment: Speci men Type: URINE SPECIMENOrdering Facility: [facility] Address: [address] [place] [address] Performed By: #### 2 4356-8 ####[facility] [place] LABCLIA [id number] [facility] [address] [place] Ketones Ql (U) Negative Normal Negative [facility] Comment on above: Order Comment: Speci men Type: URINE SPECIMENOrdering Facility: [facility] Address: [address] [place] [address] Performed By: #### 2 4356-8 ####[facility] [place] LABCLIA [id number] [place] [address] [facility] Leukocyte esterase Test strip Ql (U) Negative Normal Negative [facility] Comment on above: Order Comment: Speci men Type: URINE SPECIMENOrdering Facility: [facility] Address: [address] [place] [address] Performed By: #### 2 4356-8 ####[facility] [place] LABCLIA [id number] [place] [address] [place] [facility] Nitrite Ql (U) Negative Normal Negative [facility] Comment on above: Order Comment: Speci men Type: URINE SPECIMENOrdering Facility: [facility] Address: [address] [place] [address] Performed By: #### 2 4356-8 ####[facility] [place] LABCLIA [id number] [place] [address] [facility] pH (U) 6.5 [pH] Normal 5.0-8.0 [facility] Comment on above: Order Comment: Speci men Type: URINE SPECIMENOrdering Facility: [facility] Address: [address] [place] [address] Performed By: #### 2 4356-8 ####[facility] [place] LABCLIA [id number] [place] [address] [place] [facility] Protein (U) [Mass/Vol] 3+ Abnormal Negative [facility] Comment on above: Order Comment: Speci men Type: URINE SPECIMENOrdering Facility: [facility] Address: [address] [place] [address] Performed By: #### 2 4356-8 ####[facility] [place] LABCLIA [id number] [place] [address] [place] [facility] RBC LM.HPF (Urine sed) [#/Area] 0-3 /HPF Normal 0-3 /HPF [facility] Comment on above: Order Comment: Speci men Type: URINE SPECIMENOrdering Facility: [facility] Address: [address] [place] [address] Performed By: #### 2 4356-8 ####[facility] [place] LABCLIA [id number] [place] [address] [place] Specific gravity (U) [Rel density] 1.020 Normal 1.005-1.030 [facility] Comment on above: Order Comment: Speci men Type: URINE SPECIMENOrdering Facility: [facility] Address: [address] [place] [address] Performed By: #### 2 4356-8 ####[facility] [place] LABCLIA [id number] [place] [address] [facility] Urobilinogen Ql (U) 0.2 EU/dL Normal 0.2-1.0 EU/dL [facility] Comment on above: Order Comment: Speci men Type: URINE SPECIMENOrdering Facility: [facility] Address: [address] [place] [address] Performed By: #### 2 4356-8 ####[facility] LABCLIA [id number] [place] [address] [place] [facility] WBC LM.HPF (Urine sed) [#/Area] 0-5 /HPF Normal 0-5 /HPF [facility] Comment on above: Order Comment: Speci men Type: URINE SPECIMENOrdering Facility: [facility] Address: [address] [place] [address] Performed By: #### 2 4356-8 ####[facility] LABCLIA [id number] [place] [address] [place] Basic metabolic 2000 panelon 06-03-2023 Anion gap [Moles/Vol] 10 mmol/L Normal 9-18 [facility] Comment on above: Order Comment: Speci men Type: BLOOD SPECIMENOrdering Facility: [facility] Address: [address] [place] [address] Performed By: #### 2 4321-2 ####[facility] LABCLIA [id number] [place] [address] [place] Calcium [Mass/Vol] 8.7 mg/dL Normal 8.5-10.2 [facility] Comment on above: Order Comment: Speci men Type: BLOOD SPECIMENOrdering Facility: [facility] Address: [address] [place] [address] Performed By: #### 2 4321-2 ####[facility] [place] LABCLIA [id number] [place] [address] [place] Chloride [Moles/Vol] 105 mmol/L Normal 97-105 [facility] Comment on above: Order Comment: Speci men Type: BLOOD SPECIMENOrdering Facility: [facility] Address: [address] [place] [address] Performed By: #### 2 4321-2 ####[facility] [place] LABCLIA [id number] [place] [address] [place] CO2 [Moles/Vol] 26 mmol/L Normal 22-30 [facility] Comment on above: Order Comment: Speci men Type: BLOOD SPECIMENOrdering Facility: [facility] Address: [address] [place] [address] Performed By: #### 2 4321-2 ####[facility] [employer] LABCLIA [id number] [place] [address] [place] Creatinine [Mass/Vol] 2.37 mg/dL High 0.73-1.22 [facility] Comment on above: Order Comment: Speci men Type: BLOOD SPECIMENOrdering Facility: [facility] Address: [address] [place] [address] Performed By: #### 2 4321-2 ####[facility] [place] LABCLIA [id number] [place] [address] [facility] [place] Creatinine and Glomerular filtration rate.predicted panel (S/P/Bld) 30 mL/min/1.73m??? Low >=60 [facility] Comment on above: Order Comment: Speci men Type: BLOOD SPECIMENOrdering Facility: [facility] Address: [address] [place] [address] Result Comment: Breanne mated Glomerular Filtration Rate [...] actual GFR. Performed By: #### 2 4321-2 ####[facility] [employer] LABCLIA [id number] [place] [address] [place] Glucose [Mass/Vol] 152 mg/dL High 74-99 [facility] Comment on above: Order Comment: Brooksi men Type: BLOOD SPECIMENOrdering Facility: [facility] Address: [address] [place], [place] [id number] Result Comment: The [place] [employer] (ADA) provides guidance for cutoff [...] Standards of Medical Care in Diabetes 2016, [place] [employer]. Diabetes Care. 2016.39(Suppl 1). Performed By: #### 2 4321-2 ####[facility] [employer] LABCLIA [id number] [place] [address] [place] Potassium [Moles/Vol] 5.0 mmol/L Normal 3.7-5.1 [facility] [facility] Comment on above: Order Comment: Luz vaughan Type: BLOOD SPECIMENOrdering Facility: [facility] Address: [address] [place] [address] Performed By: #### 2 4321-2 ####[facility] [place] LABCLIA [id number] [place] [address] [place] Sodium [Moles/Vol] 141 mmol/L Normal 136-144 [facility] Comment on above: Order Comment: Brooksi men Type: BLOOD SPECIMENOrdering Facility: [facility] Address: [address] [place] [address] Performed By: #### 2 4321-2 ####[facility] LABCLIA [id number] [place] [address] [place] Urea nitrogen [Mass/Vol] 44 mg/dL High 9-24 [facility] Comment on above: Order Comment: Speci men Type: BLOOD SPECIMENOrdering Facility: [facility] Address: [address] [place] [address] Performed By: #### 2 4321-2 ####[facility] LABCLIA [id number] YRIA [facility] [address] [facility] [place] Basic metabolic 2000 panelon 06-02-2023 Anion gap [Moles/Vol] 11 mmol/L Normal 9-18 [facility] Comment on above: Order Comment: Speci men Type: BLOOD SPECIMENOrdering Facility: [facility] Address: [address] [place] [address] Performed By: #### 2 4321-2 ####[facility] LABCLIA [id number] [facility] [address] [place] Calcium [Mass/Vol] 8.9 mg/dL Normal 8.5-10.2 [facility] Comment on above: Order Comment: Speci men Type: BLOOD SPECIMENOrdering Facility: [facility] Address: [address] [place] [address] Performed By: #### 2 4321-2 ####[facility] LABCLIA [id number] [facility] [address] [place] Chloride [Moles/Vol] 104 mmol/L Normal 97-105 [facility] Comment on above: Order Comment: Speci men Type: BLOOD SPECIMENOrdering Facility: [facility] Address: [address] [place] [address] Performed By: #### 2 4321-2 ####[facility] LABCLIA [id number] [facility] [address] [place] CO2 [Moles/Vol] 27 mmol/L Normal 22-30 [facility] Comment on above: Order Comment: Speci men Type: BLOOD SPECIMENOrdering Facility: [facility] Address: [address] [place] [address] Performed By: #### 2 4321-2 ####[facility] LABCLIA [id number] [place] [address] [place] Creatinine [Mass/Vol] 2.38 mg/dL High 0.73-1.22 [facility] Comment on above: Order Comment: Speci men Type: BLOOD SPECIMENOrdering Facility: [facility] Address: [address] [place] [address] Performed By: #### 2 4321-2 ####[facility] LABCLIA [id number] [place] [address] [facility] Creatinine and Glomerular filtration rate.predicted panel (S/P/Bld) 30 mL/min/1.73m??? Low >=60 [facility] Comment on above: Order Comment: Speci men Type: BLOOD SPECIMENOrdering Facility: [facility] Address: [address] [place] [address] Result Comment: Breanne mated Glomerular Filtration Rate [...] actual GFR. Performed By: #### 2 4321-2 ####[facility] LABCLIA [id number] [place] [address] [place] Glucose [Mass/Vol] 146 mg/dL High 74-99 [facility] Comment on above: Order Comment: Luz vaughan Type: BLOOD SPECIMENOrdering Facility: [facility] Address: [address] [place] [address] Result Comment: The [place] Diabetes Association (ADA) provides guidance for cutoff [...] Standards of Medical Care in Diabetes 2016, [place] [employer]. Diabetes Care. 2016.39(Suppl 1). Performed By: #### 2 4321-2 ####[facility] LABCLIA [id number] [place] [address] [place] Potassium [Moles/Vol] 5.3 mmol/L High 3.7-5.1 [facility] Comment on above: Order Comment: Speci men Type: BLOOD SPECIMENOrdering Facility: [facility] Address: [address] [place] [address] Performed By: #### 2 4321-2 ####[facility] [employer] LABCLIA [id number] [place] [address] [place] Sodium [Moles/Vol] 142 mmol/L Normal 136-144 [facility] Comment on above: Order Comment: Luz vaughan Type: BLOOD SPECIMENOrdering Facility: [facility] Address: [address] [place] [address] Performed By: #### 2 4321-2 ####[facility] [employer] LABCLIA [id number] [place] [address] [place] Urea nitrogen [Mass/Vol] 48 mg/dL High 9-24 [facility] Comment on above: Order Comment: Luz vaughan Type: BLOOD SPECIMENOrdering Facility: [facility] Address: [address] [place] [address] Performed By: #### 2 4321-2 ####[facility] [employer] LABCLIA [id number] [place] [address] [place] THERAPY NTon 06-02-2023 THERAPY NT Normal [facility] THERAPY NT Normal [facility] THERAPY NTon 06-01-2023 THERAPY NT Normal [facility] THERAPY NT Normal [facility] THERAPY NT Normal [facility] NURSING PROGon 05-31-2023 NURSING PROG Normal [facility] SOCIAL WORKon 05-31-2023 SOCIAL WORK Normal [facility] THERAPY NTon 05-31-2023 THERAPY NT Normal [facility] THERAPY NT Normal [facility] THERAPY NT Normal [facility] THERAPY NT Normal [facility] Basic metabolic 2000 panelon 05-30-2023 Anion gap [Moles/Vol] 10 mmol/L Normal 9-18 [facility] Comment on above: Order Comment: Speci men Type: BLOOD SPECIMENOrdering Facility: [facility] Address: [address] [place] [address] Performed By: #### 2 4321-2 ####[facility] LABCLIA [id number] [place] [address] [place] Calcium [Mass/Vol] 8.4 mg/dL Low 8.5-10.2 [facility] Comment on above: Order Comment: Speci men Type: BLOOD SPECIMENOrdering Facility: [facility] Address: [address] [place] [address] Performed By: #### 2 4321-2 ####[facility] LABCLIA [id number] [place] [address] [place] Chloride [Moles/Vol] 103 mmol/L Normal 97-105 [facility] Comment on above: Order Comment: Speci men Type: BLOOD SPECIMENOrdering Facility: [facility] Address: [address] [place] [address] Performed By: #### 2 4321-2 ####[facility] LABCLIA [id number] [place] [address] [place] CO2 [Moles/Vol] 23 mmol/L Normal 22-30 [facility] Comment on above: Order Comment: Speci men Type: BLOOD SPECIMENOrdering Facility: [facility] Address: [address] [place] [address] Performed By: #### 2 4321-2 ####[facility] LABCLIA [id number] [place] [address] [place] Creatinine [Mass/Vol] 2.34 mg/dL High 0.73-1.22 [facility] Comment on above: Order Comment: Specjonas vaughan Type: BLOOD SPECIMENOrdering Facility: [facility] Address: [address] [place] [address] Performed By: #### 2 4321-2 ####[facility] LABCLIA [id number] [place] [address] [place] [facility] Creatinine and Glomerular filtration rate.predicted panel (S/P/Bld) 30 mL/min/1.73m??? Low >=60 [facility] Comment on above: Order Comment: Luz vaughan Type: BLOOD SPECIMENOrdering Facility: [facility] Address: [address] [place] [address] Result Comment: Breanne mated Glomerular Filtration Rate [...] actual GFR. Performed By: #### 2 4321-2 ####[facility] LABCLIA [id number] [place] [address] [place] Glucose [Mass/Vol] 242 mg/dL High 74-99 [facility] Comment on above: Order Comment: Luz vaughan Type: BLOOD SPECIMENOrdering Facility: [facility] Address: [address] [place] [address] Result Comment: The [place] Diabetes Association (ADA) provides guidance for cutoff [...] Standards of Medical Care in Diabetes 2016, [place] [employer]. Diabetes Care. 2016.39(Suppl 1). Performed By: #### 2 4321-2 ####[facility] [employer] LABCLIA [id number] [place] [address] [place] Potassium [Moles/Vol] 4.9 mmol/L Normal 3.7-5.1 [facility] Comment on above: Order Comment: Luz vaughan Type: BLOOD SPECIMENOrdering Facility: [facility] Address: [address] [place] [address] Performed By: #### 2 4321-2 ####[facility] LABCLIA [id number] [place] [address] [place] Sodium [Moles/Vol] 136 mmol/L Normal 136-144 [facility] Comment on above: Order Comment: Luz vaughan Type: BLOOD SPECIMENOrdering Facility: [facility] Address: [address] [place] [address] Performed By: #### 2 4321-2 ####[facility] [employer] LABCLIA [id number] [place] [address] [place] Urea nitrogen [Mass/Vol] 49 mg/dL High 9-24 [facility] Comment on above: Order Comment: Luz vaughan Type: BLOOD SPECIMENOrdering Facility: [facility] Address: [address] [place] [address] Performed By: #### 2 4321-2 ####[facility] [employer] LABCLIA [id number] [place] [address] [place] CASE MGT INIT ASSESon 2023 CASE MGT INIT ASSES Normal [facility] CBC panel Auto (Bld)on 05-30 Erythrocyte distribution width (RBC) [Ratio] 13.3 % Normal 11.5-15.0 [facility] Comment on above: Order Comment: Speci men Type: BLOOD SPECIMENOrdering Facility: [facility] Address: [address] [place] [address] Performed By: #### 5 8410-2 ####[facility] LABCLIA [id number] [place] [address] [facility] Hematocrit (Bld) [Volume fraction] 34.3 % Low 39.0-51.0 [facility] Comment on above: Order Comment: Speci men Type: BLOOD SPECIMENOrdering Facility: [facility] Address: [address] [place] [address] Performed By: #### 5 8410-2 ####[facility] LABCLIA [id number] [place] [address] [facility] [place] Hemoglobin (Bld) [Mass/Vol] 11.1 g/dL Low 13.0-17.0 [facility] Comment on above: Order Comment: Speci men Type: BLOOD SPECIMENOrdering Facility: [facility] Address: [address] [place] [address] Performed By: #### 5 8410-2 ####[facility] LABCLIA [id number] [place] [address] [place] MCH (RBC) [Entitic mass] 29.4 pg Normal 26.0-34.0 [facility] Comment on above: Order Comment: Speci men Type: BLOOD SPECIMENOrdering Facility: [facility] Address: [address] [place] [address] Performed By: #### 5 8410-2 ####[facility] LABCLIA [id number] [place] [address] [place] MCHC (RBC) [Mass/Vol] 32.4 g/dL Normal 30.5-36.0 [facility] Comment on above: Order Comment: Speci men Type: BLOOD SPECIMENOrdering Facility: [facility] Address: [address] [place] [address] Performed By: #### 5 8410-2 ####[facility] LABCLIA [id number] [place] [address] [place] MCV (RBC) [Entitic vol] 91.0 fL Normal 80.0-100.0 [facility] Comment on above: Order Comment: Speci men Type: BLOOD SPECIMENOrdering Facility: [facility] Address: [address] [place] [address] Performed By: #### 5 8410-2 ####[facility] LABCLIA [id number] [place] [address] [place] Platelet mean volume (Bld) [Entitic vol] 9.7 fL Normal 9.0-12.7 [facility] Comment on above: Order Comment: Speci men Type: BLOOD SPECIMENOrdering Facility: [facility] Address: [address] [place] [address] Performed By: #### 5 8410-2 ####[facility] LABCLIA [id number] [place] [address] [facility] [place] Platelets (Bld) [#/Vol] 225 10*3/uL Normal 150-400 [facility] Comment on above: Order Comment: Speci men Type: BLOOD SPECIMENOrdering Facility: [facility] Address: [address] [place] [address] Performed By: #### 5 8410-2 ####[facility] LABCLIA [id number] [place] [address] [place] RBC (Bld) [#/Vol] 3.77 10*6/uL Low 4.20-6.00 [facility] Comment on above: Order Comment: Speci men Type: BLOOD SPECIMENOrdering Facility: [facility] Address: [address] [place] [address] Performed By: #### 5 8410-2 ####[facility] LABCLIA [id number] [place] [address] [place] WBC (Bld) [#/Vol] 3.75 10*3/uL Normal 3.70-11.00 [facility] Comment on above: Order Comment: Speci men Type: BLOOD SPECIMENOrdering Facility: [facility] Address: [address] [place] [address] Performed By: #### 5 8410-2 ####[facility] [place] LABCLIA [id number] [place] [address] [place] NURSING PROGon 05-30-2023 NURSING PROG Normal [facility] SOCIAL WORKon 05-30-2023 SOCIAL WORK Normal [facility] SOCIAL WORK Normal [facility] THERAPY NTon 05-30-2023 THERAPY NT Normal [facility] THERAPY NT Normal [facility] ALLIED HEALTHon 05-29-2023 ALLIED HEALTH Normal [facility] CBC panel Auto (Bld)on 05-29 Erythrocyte distribution width (RBC) [Ratio] 13.4 % Normal 11.5-15.0 [facility] Comment on above: Order Comment: Speci men Type: BLOOD SPECIMENOrdering Facility: [facility] Address: [address] [place] [address] Performed By: #### 5 8410-2 ####[facility] LABCLIA [id number] [place] [address] [place] Hematocrit (Bld) [Volume fraction] 35.9 % Low 39.0-51.0 [facility] Comment on above: Order Comment: Speci men Type: BLOOD SPECIMENOrdering Facility: [facility] Address: [address] [place] [address] Performed By: #### 5 8410-2 ####[facility] [place] LABCLIA [id number] [place] [address] [place] Hemoglobin (Bld) [Mass/Vol] 11.4 g/dL Low 13.0-17.0 [facility] Comment on above: Order Comment: Speci men Type: BLOOD SPECIMENOrdering Facility: [facility] Address: [address] [place] [address] Performed By: #### 5 8410-2 ####[facility] [place] LABCLIA [id number] [place] [address] [place] [facility] MCH (RBC) [Entitic mass] 28.9 pg Normal 26.0-34.0 [facility] Comment on above: Order Comment: Speci men Type: BLOOD SPECIMENOrdering Facility: [facility] Address: [address] [place] [address] Performed By: #### 5 8410-2 ####[facility] LABCLIA [id number] [facility] [address] [facility] MCHC (RBC) [Mass/Vol] 31.8 g/dL Normal 30.5-36.0 [facility] Comment on above: Order Comment: Speci men Type: BLOOD SPECIMENOrdering Facility: [facility] Address: [address] [place] [address] Performed By: #### 5 8410-2 ####[facility] LABCLIA [id number] [facility] [address] [facility] [place] MCV (RBC) [Entitic vol] 90.9 fL Normal 80.0-100.0 [facility] Comment on above: Order Comment: Speci men Type: BLOOD SPECIMENOrdering Facility: [facility] Address: [address] [place] [address] Performed By: #### 5 8410-2 ####[facility] LABCLIA [id number] [place] [address] [place] Platelet mean volume (Bld) [Entitic vol] 9.3 fL Normal 9.0-12.7 [facility] Comment on above: Order Comment: Speci men Type: BLOOD SPECIMENOrdering Facility: [facility] Address: [address] [place] [address] Performed By: #### 5 8410-2 ####[facility] LABCLIA [id number] [facility] [address] [facility] [place] Platelets (Bld) [#/Vol] 221 10*3/uL Normal 150-400 [facility] Comment on above: Order Comment: Speci men Type: BLOOD SPECIMENOrdering Facility: [facility] Address: [address] [place] [address] Performed By: #### 5 8410-2 ####[facility] [place] LABCLIA [id number] [place] [address] [facility] RBC (Bld) [#/Vol] 3.95 10*6/uL Low 4.20-6.00 [facility] Comment on above: Order Comment: Speci men Type: BLOOD SPECIMENOrdering Facility: [facility] Address: [address] [place] [address] Performed By: #### 5 8410-2 ####[facility] [place] LABCLIA [id number] [place] [address] [facility] WBC (Bld) [#/Vol] 4.62 10*3/uL Normal 3.70-11.00 [facility] Comment on above: Order Comment: Speci men Type: BLOOD SPECIMENOrdering Facility: [facility] Address: [address] [place] [address] Performed By: #### 5 8410-2 ####[facility] [place] LABCLIA [id number] [place] [address] [facility] Comprehensive metabolic 2000 panelon 05-29-2023 Albumin [Mass/Vol] 2.9 g/dL Low 3.9-4.9 [facility] Comment on above: Order Comment: Speci men Type: BLOOD SPECIMENOrdering Facility: [facility] Address: [address] [place] [address] Performed By: #### 2 4323-8 ####[facility] [place] LABCLIA [id number] [place] [address] [facility] ALP [Catalytic activity/Vol] 109 U/L Normal 38-113 [facility] Comment on above: Order Comment: Speci men Type: BLOOD SPECIMENOrdering Facility: [facility] Address: [address] [place] [address] Performed By: #### 2 4323-8 ####[facility] [place] LABCLIA [id number] [place] [address] [place] ALT With P-5'-P [Catalytic activity/Vol] 11 U/L Normal 10-54 [facility] Comment on above: Order Comment: Speci men Type: BLOOD SPECIMENOrdering Facility: [facility] Address: [address] [place] [address] Performed By: #### 2 4323-8 ####[facility] [place] LABCLIA [id number] [place] [address] [place] Anion gap [Moles/Vol] 10 mmol/L Normal 9-18 [facility] Comment on above: Order Comment: Speci men Type: BLOOD SPECIMENOrdering Facility: [facility] Address: [address] [place] [address] Performed By: #### 2 4323-8 ####[facility] [place] LABCLIA [id number] [place] [address] [place] AST With P-5'-P [Catalytic activity/Vol] 13 U/L Low 14-40 [facility] Comment on above: Order Comment: Speci men Type: BLOOD SPECIMENOrdering Facility: [facility] Address: [address] [place] [address] Performed By: #### 2 4323-8 ####[facility] [place] LABCLIA [id number] [place] [address] [place] Bilirubin [Mass/Vol] 0.3 mg/dL Normal 0.2-1.3 [facility] Comment on above: Order Comment: Speci men Type: BLOOD SPECIMENOrdering Facility: [facility] Address: [address] [place] [address] Performed By: #### 2 4323-8 ####[facility] [place] LABCLIA [id number] [facility] [address] [place] Calcium [Mass/Vol] 8.7 mg/dL Normal 8.5-10.2 [facility] Comment on above: Order Comment: Speci men Type: BLOOD SPECIMENOrdering Facility: [facility] Address: [address] [place] [address] Performed By: #### 2 4323-8 ####[facility] [place] LABCLIA [id number] [place] [address] [place] Chloride [Moles/Vol] 104 mmol/L Normal 97-105 [facility] Comment on above: Order Comment: Speci men Type: BLOOD SPECIMENOrdering Facility: [facility] Address: [address] [place] [address] Performed By: #### 2 4323-8 ####[facility] [place] LABCLIA [id number] [place] [address] [place] CO2 [Moles/Vol] 24 mmol/L Normal 22-30 [facility] Comment on above: Order Comment: Speci men Type: BLOOD SPECIMENOrdering Facility: [facility] Address: [address] [place] [address] Performed By: #### 2 4323-8 ####[facility] LABCLIA [id number] [place] [address] [place] Creatinine [Mass/Vol] 2.49 mg/dL High 0.73-1.22 [facility] Comment on above: Order Comment: Speci men Type: BLOOD SPECIMENOrdering Facility: [facility] Address: [address] [place] [address] Performed By: #### 2 4323-8 ####[facility] LABCLIA [id number] [place] [address] [facility] Creatinine and Glomerular filtration rate.predicted panel (S/P/Bld) 28 mL/min/1.73m??? Low >=60 [facility] Comment on above: Order Comment: Speci men Type: BLOOD SPECIMENOrdering Facility: [facility] Address: [address] [place] [address] Result Comment: Breanne mated Glomerular Filtration Rate [...] actual GFR. Performed By: #### 2 4323-8 ####[facility] [employer] LABCLIA [id number] [place] [address] [place] Glucose [Mass/Vol] 240 mg/dL High 74-99 [facility] Comment on above: Order Comment: Luz vaughan Type: BLOOD SPECIMENOrdering Facility: [facility] Address: [address] [place] [address] Result Comment: The [place] Diabetes Association (ADA) provides guidance for cutoff [...] Standards of Medical Care in Diabetes 2016, [place] Diabetes Association. Diabetes Care. 2016.39(Suppl 1). Performed By: #### 2 4323-8 ####[facility] [employer] LABCLIA [id number] [place] [address] [place] Potassium [Moles/Vol] 6.0 mmol/L High 3.7-5.1 [facility] Comment on above: Order Comment: Luz vaughan Type: BLOOD SPECIMENOrdering Facility: [facility] Address: [address] [phone] Performed By: #### 2 4323-8 ####[facility] LABCLIA [id number] [place] [address] [place] Protein [Mass/Vol] 5.6 g/dL Low 6.3-8.0 [facility] Comment on above: Order Comment: Luz vaughan Type: BLOOD SPECIMENOrdering Facility: [facility] Address: [address] [phone] Performed By: #### 2 4323-8 ####[facility] LABCLIA [id number] [place] [address] [place] Sodium [Moles/Vol] 138 mmol/L Normal 136-144 [facility] Comment on above: Order Comment: Speci men Type: BLOOD SPECIMENOrdering Facility: [facility] Address: [facility] [place] [address] Performed By: #### 2 4323-8 ####[facility] [place] LABCLIA [id number] [place] [address] [place] Urea nitrogen [Mass/Vol] 54 mg/dL High 9-24 [facility] Comment on above: Order Comment: Speci men Type: BLOOD SPECIMENOrdering Facility: [facility] Address: [facility] [place] [address] Performed By: #### 2 4323-8 ####[facility] LABCLIA [id number] [place] [address] [place] NUTRITIONon 05-29-2023 NUTRITION Normal [facility] POTASSIUM BLDon 05-29-2023 Potassium [Moles/Vol] 4.6 mmol/L Normal 3.7-5.1 [facility] Comment on above: Order Comment: Speci men Type: BLOOD SPECIMENOrdering Facility: [facility] Address: [address] [place] [address] Performed By: #### K 1 ####[facility] [place] LABCLIA [id number] [place] [address] [place] PT EDon 05-29-2023 PT ED Normal [facility] THERAPY NTon 05-29-2023 THERAPY NT Normal [facility] THERAPY NT Normal [facility] US DVT UPPER LTon 05-29-2023 US DVT UPPER LT Normal [facility] US EXT MASS/FLUID COLLECTION LTon 05-29-2023 US EXT MASS/FLUID COLLECTION LT Normal [facility] CONSULT PROGon 02-25-2024 CONSULT PROG Normal [facility] NURSING PROGon 05-28-2023 NURSING PROG Normal [facility] THERAPY NTon 05-28-2023 THERAPY NT Normal [facility] HISTORY PHYSICALon HISTORY PHYSICAL Normal [facility] THERAPY NTon 05-27-2023 THERAPY NT Normal [facility] THERAPY NT Normal [facility] NURSING PROGon 05-26-2023 NURSING PROG Normal [facility] CNPTOUTREACHon 05-23-2023 CNPTOUTREACH Normal [facility] GLUCOSE, BLOOD (POC)on 05-23 Glucose [Mass/Vol] 444 mg/dL Abnormal 74 - 99 mg/dL [facility] HEMOGLOBIN A1C (POC)on 05-23 HbA1c (Bld) [Mass fraction] 13.9 % Abnormal 4.3 - 5.6 % [facility] CNPTOUTREACHon 05-19-2023 CNPTOUTREACH Normal [facility] ECHOon 12-01-2022 [facility] NM CARDIAC PERF STRESS/PHARM on 12-01-2022 [facility] IR INJ PROC FOR HIP ARTHOGRA M (AK)on 08-30-2022 [facility] HEMOGLOBIN A1C (POC)on 06-29 HbA1c (Bld) [Mass fraction] 8.9 % Abnormal 4.2 - 5.6 % [facility] CBC W Auto Differential pane l (Bld)on 06-01-2022 Basophils (Bld) [#/Vol] 0.03 10*3/uL <0.11 k/uL [facility] Basophils/100 WBC (Bld) 0.4 % [facility] Differential cell count method Nom (Bld) Auto [facility] Eosinophils (Bld) [#/Vol] 0.14 10*3/uL <0.46 k/uL [facility] Eosinophils/100 WBC (Bld) 1.9 % [facility] Erythrocyte distribution width (RBC) [Ratio] 12.8 % 11.5 - 15.0 % [facility] Hematocrit (Bld) [Volume fraction] 44.6 % 39.0 - 51.0 % [facility] Hemoglobin (Bld) [Mass/Vol] 14.6 g/dL 13.0 - 17.0 g/dL [facility] Immature granulocytes (Bld) [#/Vol] 0.04 10*3/uL <0.10 k/uL [facility] Immature granulocytes/100 WBC (Bld) 0.5 % [facility] Lymphocytes (Bld) [#/Vol] 1.73 10*3/uL 1.00 - 4.00 k/uL [facility] Lymphocytes/100 WBC (Bld) 23.3 % [facility] MCH (RBC) [Entitic mass] 28.5 pg 26.0 - 34.0 pg [facility] MCHC (RBC) [Mass/Vol] 32.7 g/dL 30.5 - 36.0 g/dL [facility] MCV (RBC) [Entitic vol] 87.1 fL 80.0 - 100.0 fL [facility] Monocytes (Bld) [#/Vol] 0.55 10*3/uL <0.87 k/uL [facility] Monocytes/100 WBC (Bld) 7.4 % [facility] Neutrophils (Bld) [#/Vol] 4.92 10*3/uL 1.45 - 7.50 k/uL [facility] Neutrophils/100 WBC (Bld) 66.5 % [facility] Nucleated RBC (Bld) [#/Vol] <0.01 k/uL [facility] Nucleated RBC/100 WBC (Bld) [Ratio] 0.0 /100 WBC [facility] Platelet mean volume (Bld) [Entitic vol] 10.1 fL 9.0 - 12.7 fL [facility] Platelets (Bld) [#/Vol] 289 10*3/uL 150 - 400 k/uL [facility] RBC (Bld) [#/Vol] 5.12 10*6/uL 4.20 - 6.0 0 m/uL [facility] WBC (Bld) [#/Vol] 7.41 10*3/uL 3.70 - 11. 00 k/uL [facility] CEA BLDon 06-01-2022 Carcinoembryonic Ag [Mass/Vol] 3.7 ng/mL High <3.0 ng/mL [facility] Comprehensive metabolic 2000 panelon 06-01-2022 Albumin [Mass/Vol] 4.1 g/dL 3.9 - 4.9 g/dL [facility] ALP [Catalytic activity/Vol] 104 U/L 38 - 113 U/L [facility] ALT With P-5'-P [Catalytic activity/Vol] 16 U/L 10 - 54 U/L [facility] Anion gap [Moles/Vol] 9 mmol/L 9 - 18 mmol/L [facility] AST With P-5'-P [Catalytic activity/Vol] 14 U/L 14 - 40 U/L [facility] Bilirubin [Mass/Vol] 0.3 mg/dL 0.2 - 1 .3 mg/dL [facility] Calcium [Mass/Vol] 10.6 mg/dL High 8.5 - 10. 2 mg/dL [facility] Chloride [Moles/Vol] 102 mmol/L 97 - 10 5 mmol/L [facility] CO2 [Moles/Vol] 29 mmol/L 22 - 30 mmol/L [facility] Creatinine [Mass/Vol] 1.69 mg/dL High 0.73 - 1.22 mg/dL [facility] Estimated Glomerular Filtration Rate 45 mL/min/1.73m Low >=60 mL/min/1.73m [facility] Glucose [Mass/Vol] 215 mg/dL High 74 - 99 mg/dL [facility] Potassium [Moles/Vol] 5.8 mmol/L High 3.7 - 5.1 mmol/L [facility] Protein [Mass/Vol] 6.6 g/dL 6.3 - 8.0 g/dL [facility] Sodium [Moles/Vol] 140 mmol/L 136 - 144 mmol/L [facility] Urea nitrogen [Mass/Vol] 39 mg/dL High 9 - 24 mg/dL [facility] GLUCOSE, BLOOD (POC)on 05-18 Glucose [Mass/Vol] 196 mg/dL Abnormal 74 - 99 mg/dL [facility] HEMOGLOBIN A1C (POC)on 05-18 HbA1c (Bld) [Mass fraction] 9.7 % Abnormal 4.2 - 5.6 % [facility] GLUCOSE, BLOOD (POC)on 04-13 Glucose [Mass/Vol] 234 mg/dL Abnormal 74 - 99 mg/dL [facility] HEMOGLOBIN A1C (POC)on 04-13 HbA1c (Bld) [Mass fraction] 10.5 % Abnormal 4.2 - 5.6 % [facility] GLUCOSE, BLOOD (POC)on 03-01 Glucose [Mass/Vol] 384 mg/dL Abnormal 74 - 99 mg/dL [facility] HEMOGLOBIN A1C (POC)on 03-01 HbA1c (Bld) [Mass fraction] 10.7 % Abnormal 4.2 - 5.6 % [facility] CASE MANAGEMon 01-27-2022 CASE MANAGEM HNO ID: [id number] Author: OSCAR Lopez Service: Social Work Author Type: Electrical Maintenance Engineer Type: Care Mgt Progress Note Filed: 01/27/2022 12:32 PM Note Text: BEHAVIORAL HEALTH SOCIAL WORK DISCHARGE NOTE SERVICE DATE: 01/27/2022 SERVICE TIME: 8:58 AM Discharge Information Row Name Admission (Current) from 01/20/2022 in [facility] 6D Psychiatry Follow-Up Appointment Psychiatrist Name Deb Gomez [facility] Address / Phone # [address] [facility] [address] / Appointment Date 02/11/22 Appointment Time 8:30AM Additional Instructions Bring insurnance card and photo ID. The office is located on the 4th floor of the [facility] ([facility]). Discharge Disposition Discharge Disposition Skilled Care Fdc Fdc Referral Information Agency Name [facility] Address [address], [place] [address] Additional Discharge Information Additional Discharge Resources [facility], 6D, Additional Discharge Follow Up Information Once pt is ready for discharge from SNF, please provide pt with transportation back to [facility] to quill picking machine operator his car from the parking lot. 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 The pt is aware and agreeable with discharge plans. Update provided to the facility. The pt's car will remain in hospital parking lot. The facility will arrange transportation for pt to return to [facility] to quill picking machine operator his car once SNF stay is complete. Hospital police/security team are aware. SIGNATURE: AMERICA Lopez LSW PATIENT NAME: José Manuel Ashton DATE: January 27, 2022 TIME: 8:58 AM [facility] HNO ID: [id number] Author: Luis Carlos Short Jr., MD Service: [...] Feeling physically and emotionally improved, discharge to jail facility on 01/27/22 was activated. Suicide risk [...] PATIENT CONDITION AT DISCHARGE: Improved DISCHARGE DISPOSITION: Long Term Facility COMPLICATIONS: None At this time the patient has maximized his benefit from hospitalization.. The patient denies suicidal or homicidal ideation, intent or plan and is safe for discharge. The patient voices a readiness to transition to jail care setting, and has agreed to our [...] SNF, therapeutic drug monitoring at [facility] for depakote 2. Psychological Management Recommendations: jayla (more content not included)... [facility] NURSING PROGon 01-27-2022 NURSING PROG HNO ID: [id number] Author: Huong Glass RN Service: Nursing Author Type: Counselor Type: Nursing Progress Note Filed: 01/27/2022 12:25 PM Note Text: [id number] Assumed care of pt awake in bed. [...] peers. Report called to Harish GARZA at [facility]. Pt left unit via stretcher at 1133. Safety precautions maintained. [facility] ALLIED HEALTHon 01-26-2022 ALLIED HEALTH HNO ID: [id number] Author: RT Juarez(R) Service: Radiology Author Type: [...] IV DATA: Not applicable SIGNED BY: RT Juarez(R) January 26, 2022 10:57 AM [facility] Basic metabolic 2000 panelon 01-26-2022 Anion gap [Moles/Vol] 6 mmol/L Low 9-18 [facility] Comment on above: Order Comment: Speci men Type: BLOOD SPECIMENOrdering Facility: [facility] Address: [address] [place] [address] [address] [phone] Performed By: #### 1 9123-9, 65039-8, 1987-08, ####[facility]ORATORYCLIA [id number] [address] [address] [place] Calcium [Mass/Vol] 9.4 mg/dL Normal 8.5-10.2 [facility] Comment on above: Order Comment: Speci men Type: BLOOD SPECIMENOrdering Facility: [facility] Address: [address] [place] [address] [address] [address] Performed By: #### 1 9123-9, 73695-0, 1987-08, ####[facility] LABORATORYCLIA [id number] [address] [id number] [place] Chloride [Moles/Vol] 99 mmol/L Normal 97-105 [facility] Comment on above: Order Comment: Speci men Type: BLOOD SPECIMENOrdering Facility: [facility] Address: [address] [place], [place] [phone] Performed By: #### 1 9123-9, 29720-3, ####[facility] LABORATORYCLIA [id number] [address] [id number] [place] CO2 [Moles/Vol] 31 mmol/L High 22-30 [facility] Comment on above: Order Comment: Speci men Type: BLOOD SPECIMENOrdering Facility: [facility] Address: [address] [place] [phone] Performed By: #### 1 9123-9, 85774-0, 1987-08, ####[facility] LABORATORYCLIA [id number] [address] [address] [place] Creatinine [Mass/Vol] 1.19 mg/dL Normal 0.73-1.22 [facility] Comment on above: Order Comment: Luz vaughan Type: BLOOD SPECIMENOrdering Facility: [facility] Address: [address] [phone] Performed By: #### 1 9123-9, 63123-7, 1987-08, ####[facility] LABORATORYCLIA [id number] [address] [id number] [place] ESTIMATED GLOMERULAR FILTRATION RATE 69 mL/min/1.73m??? Normal >=60 [facility] Comment on above: Order Comment: Luz vaughan Type: BLOOD SPECIMENOrdering Facility: [facility] Address: [address] [place], [place] [phone] Result Comment: Breanne mated Glomerular Filtration Rate [...] actual GFR. Performed By: #### 1 9123-9, 31117-3, 1987-08, ####[facility] LABORATORYCLIA [id number] [address] [id number] [place] Glucose [Mass/Vol] 161 mg/dL High 74-99 [facility] Comment on above: Order Comment: Luz vaughan Type: BLOOD SPECIMENOrdering Facility: [facility] Address: [address] [place] [place] [address] Result Comment: The [place] Diabetes Association (ADA) provides guidance for cutoff [...] Standards of Medical Care in Diabetes 2016, [place] [employer] Association. Diabetes Care. 2016.39(Suppl 1). Performed By: #### 1 9123-9, 60075-3, 1987-08, ####[facility] LABORATORYCLIA [id number] [address] [place] [address] [place] Potassium [Moles/Vol] 5.0 mmol/L Normal 3.7-5.1 [facility] Comment on above: Order Comment: Speci men Type: BLOOD SPECIMENOrdering Facility: [facility] Address: [address] [place], [place] [phone] Performed By: #### 1 9123-9, 47694-5, 1987-08, ####[facility] LABORATORYCLIA [id number] [address] [id number] [place] [facility] Sodium [Moles/Vol] 136 mmol/L Normal 136-144 [facility] Comment on above: Order Comment: Speci men Type: BLOOD SPECIMENOrdering Facility: [facility] Address: [address] [place] [address] Performed By: #### 1 9123-9, 39911-5, 1987-08, ####[facility] LABORATORYCLIA [id number] [address] [place] [id number] [place] Urea nitrogen [Mass/Vol] 26 mg/dL High - [facility] Comment on above: Order Comment: Speci men Type: BLOOD SPECIMENOrdering Facility: [facility] Address: [address] [place] [phone] Performed By: #### 1 9123-9, 27007-7, 1987-08, ####[facility] LABORATORYCLIA [id number] [address] [address] [facility] CASE MANAGEMon 01-26-2022 CASE MANAGEM HNO ID: [id number] Author: OSCAR Lopez Service: Social Work Author Type: Electrical Maintenance Engineer Type: Care Mgt Progress Note Filed: 01/26/2022 5:01 PM Note Text: BEHAVIORAL HEALTH SOCIAL WORK PROGRESS NOTE SERVICE DATE: 01/26/2022 SERVICE TIME: 4:50 PM Pt's discharge today has been cancelled due to not being medically clear. This keno writer / runner was made aware today that pt's car is parked in the hospital parking lot. Informed pt his car will need to remain in parking lot until SNF stay is complete or he could make arrangements with family to quill picking machine operator the car. Pt appears frustrated, stating "I don't know what to do.". He reports "I don't have anyone to quill picking machine operator the car that knows how to drive in the city.". Pt agreeable to leaving his car in hospital parking lot if approved by hospital security team and if his ambulance ride to facility will be covered by insurance. [facility] contacted billing department (phone #: [phone]) for [facility] [employer]. According to their billing department, pt has Medicare and [place] Medicaid. Billing department reports "pt should not have a copay or any financial responsibility for ambulance ride.". [facility] informed pt of call with billing department. Pt remains agreeable to being transported to [facility] by ambulance. Spoke with Officemadi Dumas at [facility] police department. Discussed the above situation. Officer Piter agrees to allow pt's car to remain on hospital property until SNF stay is complete. [facility] provided officemadi Dumas with pt's name, phone number, name of SNF, license plate number, color and make of vehicle ([employer]), and written reason for the request. Officer Dumas will forward this information to fellow officers and security guards at [facility] police at [employer]. Update provided to [facility]. The social media community manager at the [facility] will arrange transportation for pt to come back to [facility] to quill picking machine operator his car once SNF stay is complete. Given pt's history of cannabis use disorder, facility also requests for pt to sign a contact indicating he will refrain from using any unauthorized medications, alcohol, or drugs while at their facility. Received faxed copy of contract for pt to sign. [facility] will discuss and present contract to pt tomorrow morning. The plan is for pt to be discharged to [facility] tomorrow (01/27) at 11:00am via ambulance (Trip #: [id number]). SW will confirm discharge with facility tomorrow morning. PAS/determination results in pt's chart. SW will continue to follow. SIGNATURE: AMERICA Lopez, OSCAR PATIENT NAME: José Manuel Ashton DATE: January 26, 2022 TIME: 4:50 PM Normal [facility] CBC panel Auto (Bld)on 01-26 Erythrocyte distribution width (RBC) [Ratio] 13.0 % Normal 11.5-15.0 [facility] Comment on above: Order Comment: Speci men Type: BLOOD SPECIMEN Ordering Facility: [facility] Address: [address] [place] [address] Performed By: #### 5 8410-2 #### [facility] [place] [id number] [address] [place] [address] [place] Hematocrit (Bld) [Volume fraction] 43.5 % Normal 39.0-51.0 [facility] Comment on above: Order Comment: Speci men Type: BLOOD SPECIMEN Ordering Facility: [facility] Address: [address] [place] [address] Performed By: #### 5 8410-2 #### [facility] [place] [id number] [address] [place] [address] [place] Hemoglobin (Bld) [Mass/Vol] 14.1 g/dL Normal 13.0-17.0 [facility] Comment on above: Order Comment: Speci men Type: BLOOD SPECIMEN Ordering Facility: [facility] Address: [address] [place] [address] Performed By: #### 5 8410-2 #### [facility] CLIA [id number] [address] [place] [address] [place] MCH (RBC) [Entitic mass] 29.0 pg Normal 26.0-34.0 [facility] Comment on above: Order Comment: Speci men Type: BLOOD SPECIMEN Ordering Facility: [facility] Address: [address] [place] [address] Performed By: #### 5 8410-2 #### [facility] [place] [id number] [address] [place] [address] [facility] MCHC (RBC) [Mass/Vol] 32.4 g/dL Normal 30.5-36.0 [facility] Comment on above: Order Comment: Speci men Type: BLOOD SPECIMEN Ordering Facility: [facility] Address: [address] [place] [address] Performed By: #### 5 8410-2 #### [facility] [place] [id number] [address] [place] [address] [place] MCV (RBC) [Entitic vol] 89.5 fL Normal 80.0-100.0 [facility] Comment on above: Order Comment: Speci men Type: BLOOD SPECIMEN Ordering Facility: [facility] Address: [address] [place] [address] Performed By: #### 5 8410-2 #### [facility] [place] [id number] [address] [place] [address] [place] Nucleated RBC (Bld) [#/Vol] 10*3/uL Normal <0.01 [facility] Comment on above: Order Comment: Speci men Type: BLOOD SPECIMEN Ordering Facility: [facility] Address: [address] [place], [place] [phone] Performed By: #### 5 8410-2 #### [facility] [place] [id number] [address] [place] [address] [place] Platelet mean volume (Bld) [Entitic vol] 9.3 fL Normal 9.0-12.7 [facility] Comment on above: Order Comment: Speci men Type: BLOOD SPECIMEN Ordering Facility: [facility] Address: [address] [place], [place] [phone] Performed By: #### 5 8410-2 #### [facility] CLIA [id number] [address] [place] [address] [place] Platelets (Bld) [#/Vol] 278 10*3/uL Normal 150-400 [facility] Comment on above: Order Comment: Speci men Type: BLOOD SPECIMEN Ordering Facility: [facility] Address: [address] [place] [address] Performed By: #### 5 8410-2 #### [facility] [place] [id number] [address] [place], [place] [address] [place] RBC (Bld) [#/Vol] 4.86 10*6/uL Normal 4.20-6.00 [facility] Comment on above: Order Comment: Speci men Type: BLOOD SPECIMEN Ordering Facility: [facility] Address: [address] [place] [address] Performed By: #### 5 8410-2 #### [facility] IA [id number] [address] [place], [place] [address] [place] WBC (Bld) [#/Vol] 5.07 10*3/uL Normal 3.70-11.00 [facility] Comment on above: Order Comment: Speci men Type: BLOOD SPECIMEN Ordering Facility: [facility] Address: [address] [place] [address] Performed By: #### 5 8410-2 #### [facility] IA [id number] [address] [place], [place] [address] [facility] [place] CRP SerPl-mCncon 01-26-2022 CRP [Mass/Vol] 0.3 mg/dL Normal <0.9 [facility] Comment on above: Order Comment: Speci men Type: BLOOD SPECIMENOrdering Facility: [facility] Address: [address] [place] [address] Performed By: #### 1 9123-9, 16773-2, 1988-5, 50982-0 ####[facility] [id number] [address] [address] [facility] Magnesium SerPl-mCncon 01-26 Magnesium [Mass/Vol] 1.8 mg/dL Normal 1.7-2.3 [facility] Comment on above: Order Comment: Speci men Type: BLOOD SPECIMENOrdering Facility: [facility] Address: [address] [place] [address] Performed By: #### 1 9123-9, 60780-5, 1987-, 48847-4 ####[facility] [id number] [place] [id number] [facility] NURSING PROGon 01-26-2022 NURSING PROG HNO ID: [id number] Author: Mulu Sosa RN Service: ? Author [...] with H2O. Pt slept estimated 6-7 hours. [facility] NURSING PROG HNO ID: [id number] Author: Huong Glass RN Service: Nursing Author Type: Counselor Type: Nursing Progress Note Filed: 01/26/2022 7:19 PM Note Text: [phone] Assumed care of pt awake in room. [...] Accu-checks AC AND HS. Safety precautions maintained. [facility] Procalcitonin SerPl-mCncon 1 Procalcitonin [Mass/Vol] ng/mL Normal <0.09 [facility] Comment on above: Order Comment: Speci men Type: BLOOD SPECIMENOrdering Facility: [facility] Address: [address] [place] [address] Result Comment: For a guided interpretation of test results, please visit the Change in Procalcitonin Calculator, [email or web address]. Performed By: #### 1 9123-9, 57481-9, 1987-5, 78798-1 ####[facility] [id number] [address] XR CHEST 1V FRONTALon 2021 XR CHEST [...] Stable exam with no acute radiographic abnormality. Installer Soft Top: ROBERTA Transcribe Date/Time: Jan 26 2022 11:07A Dictated by : INA DONOVAN DO This examination was interpreted and the report reviewed and electronically signed by: INA DONOVAN DO on Jan 26 2022 11:12AM EST [id number] Normal [facility] CASE MANAGEMon 01-25-2022 CASE MANAGEM HNO ID: [id number] Author: OSCAR Lopez Service: Social Work Author Type: Electrical Maintenance Engineer Type: Care Mgt Progress Note Filed: 01/25/2022 4:45 PM Note Text: BEHAVIORAL HEALTH SOCIAL WORK PROGRESS NOTE SERVICE DATE: 01/25/2022 SERVICE TIME: 4:31 PM Received PAS/determination results. Copy placed in pt's chart. Pt spoke with wholesale representative from [facility] over the phone this afternoon. SW spoke with admissions. Facility will provide decision on acceptance by either 5pm today or early tomorrow morning. Pt tentatively scheduled for discharge tomorrow (01/26) at 2:00pm via ambulance (trip #: [id number]). SW will continue to follow. SIGNATURE: AMERICA Lopez LSW PATIENT NAME: José Manuel Ashton DATE: January 25, 2022 TIME: 4:31 PM [facility] CASE MANAGEM HNO ID: [id number] Author: OSCAR Lopez Service: Social Work Author Type: Electrical Maintenance Engineer Type: Care Mgt Progress Note Filed: 01/25/2022 3:52 PM Note Text: BEHAVIORAL HEALTH SOCIAL WORK PROGRESS NOTE SERVICE DATE: 01/25/2022 SERVICE TIME: 10:41 AM [facility] on unit to complete assessment with pt for PAS/RR. Pt is currently linked with an outpatient psychiatrist (Dr. Inez Leon) at [facility]. Psych follow-up appointment scheduled. SW met with pt this afternoon to discuss facilities. Pt has been accepted by [facility] and [facility]. Awaiting response from [facility]. Pt's 1st choice is [facility], and 2nd choice is [facility]. Tentative discharge tomorrow or pending facility acceptance/selection and PAS results. Pt will likely need a COVID test prior to discharge. SW will continue to follow. SIGNATURE: AMERICA Lopez LSW PATIENT NAME: José Manuel Ashton DATE: January 25, 2022 TIME: 10:41 AM [facility] CONSULT PROGon 01-25-2022 CONSULT PROG HNO ID: [id number] Author: Collin Cheema DO Service: Endocrinology Author [...] 500 mg ORAL BID w MEALS Collin Cheema DO 500 mg at 01/24/22 1708 ergocalciferol (vitamin D2) 50,000 Units cap(s) (DRISDOL) 50,000 Units ORAL 1/WK Collin Cheema DO 50,000 Units at 01/23/22 1451 tamsulosin 0.8 mg cap(s) (FLOMAX) 0.8 mg ORAL AT BEDTIME Corky Rodarte MD 0.8 mg at 01/24/22 2100 divalproex ER 500 mg tab(s) (DEPAKOTE ER) 500 mg ORAL DAILY Miriam Jennings APRN.PAYROLL SECRETARY 500 mg at 01/24/22 0912 venlafaxine ER 75 mg cap(s) (EFFEXOR XR) 75 mg ORAL DAILY WITH BREAKFAST Miriam Jennings APRN.PAYROLL SECRETARY 75 mg at 01/24/22 0916 haloperidol 5 [...] PLUS) 30 mL ORAL DAILY PRN Teresa Diego, MOBILE PHONE SALESPERSON.PAYROLL SECRETARY acetaminophen 650 mg tab(s) (TYLENOL) 650 mg ORAL q 6 H PRN Teresa Diego, MOBILE PHONE SALESPERSON.PAYROLL SECRETARY insulin lispro injection (rapid acting) (ADMELOG) SUBCUTANEOUS AT BEDTIME Teresa Diego, MOBILE PHONE SALESPERSON.PAYROLL SECRETARY 1 Units at 01/24/22 2100 lisinopril 20 mg tab(s) (ZESTRIL, PRINIVIL) 20 mg ORAL DAILY Teresa Diego, MOBILE PHONE SALESPERSON.PAYROLL SECRETARY 20 mg at 01/24/22 0913 insulin lispro injection (rapid acting) (ADMELOG) SUBCUTANEOUS w MEALS Teresa Diego, MOBILE PHONE SALESPERSON.PAYROLL SECRETARY 3 Units at 01/24/22 1709 pioglitazone (ACTOS) tab(s) 45 mg 45 mg ORAL DAILY Teresa Diego, MOBILE PHONE SALESPERSON.PAYROLL SECRETARY 45 mg at 01/24/22 0912 docusate sodium 100 mg cap(s) (COLACE) 100 mg ORAL BID Teresa Diego, MOBILE PHONE SALESPERSON.PAYROLL SECRETARY 100 mg at 01/24/22 2100 polyethylene glycol 3350 17 g packet (MIRALAX, GLYCOLAX) 17 g ORAL DAILY Teresa Diego, MOBILE PHONE SALESPERSON.PAYROLL SECRETARY 17 g at 01/24/22 0912 insulin glargine 33 Units pen (long acting) (LANTUS SOLOSTAR, BASAGLAR KWIKPEN) 33 Units SUBCUTANEOUS AT BEDTIME Teresa Diego, MOBILE PHONE SALESPERSON.PAYROLL SECRETARY 33 Units at 01/24/22 2100 melatonin 3 mg tab(s) 3 mg ORAL DAILY (8 PM) Yarely Dejesus MD 3 mg at 01/24/22 2000 gabapentin 100 mg cap(s) (NEURONTIN) 100 mg ORAL TID PRN Yarely Dejesus MD atorvastatin 40 mg tab(s) (LIPITOR) 40 mg ORAL AT BEDTIME Yarely Dejesus MD 40 mg at 01/24/22 2100 Data Date PreBreakfast Pre Lunch Pre Dinner [...] per week. Recheck as outpatient. Collin Cheema, Endocrinology, Diabetes AND Metabolism January 25, 2022 8:42 AM PAGER: [phone] Normal [facility] Comprehensive metabolic 2000 panelon 01-25-2022 Albumin [Mass/Vol] 3.5 g/dL Low 3.9-4.9 [facility] Comment on above: Order Comment: Speci men Type: BLOOD SPECIMEN Ordering Facility: [facility] Address: [address] [place] [address] Performed By: #### 5 8410-2 #### [facility] CLIA [id number] [facility] [place] [address] [place] ALP [Catalytic activity/Vol] 109 U/L Normal 38-113 [facility] Comment on above: Order Comment: Speci men Type: BLOOD SPECIMEN Ordering Facility: [facility] Address: [facility] [place] [address] Performed By: #### 5 8410-2 #### [facility] CLIA [id number] [address] [place] [address] [place] ALT [Catalytic activity/Vol] 12 U/L Normal 10-54 [facility] Comment on above: Order Comment: Speci men Type: BLOOD SPECIMEN Ordering Facility: [facility] Address: [address] [place] [address] Performed By: #### 5 8410-2 #### [facility] CLIA [id number] [address] [place] [address] [place] Anion gap [Moles/Vol] 13 mmol/L Normal 9-18 [facility] Comment on above: Order Comment: Speci men Type: BLOOD SPECIMEN Ordering Facility: [facility] Address: [address] [place] [address] Performed By: #### 5 8410-2 #### [facility] CLIA [id number] [address] [place] [address] [place] AST [Catalytic activity/Vol] 16 U/L Normal 14-40 [facility] Comment on above: Order Comment: Speci men Type: BLOOD SPECIMEN Ordering Facility: [facility] Address: [address] [place] [address] Performed By: #### 5 8410-2 #### [facility] CLIA [id number] [address] [place] [address] [place] Bilirubin [Mass/Vol] 0.2 mg/dL Normal 0.2-1.3 [facility] Comment on above: Order Comment: Speci men Type: BLOOD SPECIMEN Ordering Facility: [facility] Address: [address] [place] [address] Performed By: #### 5 8410-2 #### [facility] CLIA [id number] [address] [place], [place] [address] [place] Calcium [Mass/Vol] 9.3 mg/dL Normal 8.5-10.2 [facility] Comment on above: Order Comment: Speci men Type: BLOOD SPECIMEN Ordering Facility: [facility] Address: [address] [place] [address] Performed By: #### 5 8410-2 #### [facility] CLIA [id number] [address] [place] [address] [place] Chloride [Moles/Vol] 100 mmol/L Normal 97-105 [facility] Comment on above: Order Comment: Speci men Type: BLOOD SPECIMEN Ordering Facility: [facility] Address: [address] [place] [address] Performed By: #### 5 8410-2 #### [facility] CLIA [id number] [address] [place] [address] [place] CO2 [Moles/Vol] 27 mmol/L Normal 22-30 [facility] Comment on above: Order Comment: Speci men Type: BLOOD SPECIMEN Ordering Facility: [facility] Address: [address] [place] [address] Performed By: #### 5 8410-2 #### [facility] CLIA [id number] [address] [place], [place] [address] [place] Creatinine [Mass/Vol] 1.20 mg/dL Normal 0.73-1.22 [facility] Comment on above: Order Comment: Speci men Type: BLOOD SPECIMEN Ordering Facility: [facility] Address: [address] [place], [place] [address] Performed By: #### 5 8410-2 #### [facility] CLIA [id number] [address] [place], [place] [address] [place] ESTIMATED GLOMERULAR FILTRATION RATE 68 mL/min/1.73m??? Normal >=60 [facility] Comment on above: Order Comment: Luz vaughan Type: BLOOD SPECIMEN Ordering Facility: [facility] Address: [address] [place] [address] Result Comment: Breanne mated Glomerular Filtration Rate [...] GFR. Performed By: #### 5 8410-2 #### [facility] CLIA [id number] [address] [place] [address] [place] Glucose [Mass/Vol] 136 mg/dL High 74-99 [facility] Comment on above: Order Comment: Luz vaughan Type: BLOOD SPECIMEN Ordering Facility: [facility] Address: [address] [place] [address] Result Comment: The [place] Diabetes Association (ADA) provides guidance for cutoff [...] Standards of Medical Care in Diabetes 2016, [place] [employer] Association. Diabetes Care. 2016.39(Suppl 1). Performed By: #### 5 8410-2 #### [facility] CLIA [id number] [address] [place] [address] [place] Potassium [Moles/Vol] 4.8 mmol/L Normal 3.7-5.1 [facility] Comment on above: Order Comment: Luz vaughan Type: BLOOD SPECIMEN Ordering Facility: [facility] Address: [address] [place] [address] Performed By: #### 5 8410-2 #### [facility] CLIA [id number] [address] [place] [address] Protein [Mass/Vol] 6.4 g/dL Normal 6.3-8.0 [facility] Comment on above: Order Comment: Speci men Type: BLOOD SPECIMEN Ordering Facility: [facility] Address: [address] [place] [address] Performed By: #### 5 8410-2 #### [facility] CLIA [id number] [address] [place] [address] [place] Sodium [Moles/Vol] 140 mmol/L Normal 136-144 [facility] Comment on above: Order Comment: Speci men Type: BLOOD SPECIMEN Ordering Facility: [facility] Address: [address] [place] [address] Performed By: #### 5 8410-2 #### [facility] IA [id number] [address] [place], [place] [address] [place] Urea nitrogen [Mass/Vol] 26 mg/dL High 9-24 [facility] Comment on above: Order Comment: Speci men Type: BLOOD SPECIMEN Ordering Facility: [facility] Address: [address] [place] [address] Performed By: #### 5 8410-2 #### [facility] IA [id number] [address] [place], [place] [address] [facility] [place] NURSING PROGon 01-25-2022 NURSING PROG HNO ID: [id number] Author: Leslie Pa RN Service: Nursing Author Type: Registered Nurse Type: Nursing Progress Note Filed: 01/25/2022 6:55 PM Note Text: Nursing Progress Note Topic of Note: Daily Note José Manuel Ashton [id number] Assumed care of patient. Patient is awake, [...] This note was completed by: Leslie Pa [facility] SARS-CoV-2 RNA Resp Ql BETO+p sarah 01-25-2022 SARS-CoV-2 (COVID-19) RNA BETO+probe Ql (Resp) COVID 19 RESULT: SARS-CoV-2 (Agent of COVID-19) Not Detected by RT-PCR or equivalent method. This test has been authorized by FDA under an Emergency Use Authorization (EUA). [facility] Comment on above: Performed By: #### 9 4500-6 ####[facility] [id number] [address] CASE MANAGEMon 01-24-2022 CASE MANAGEM HNO ID: [id number] Author: OSCAR Lopez Service: Social Work Author Type: Electrical Maintenance Engineer Type: Care Mgt Progress Note Filed: 01/24/2022 4:08 PM Note Text: BEHAVIORAL HEALTH SOCIAL WORK PROGRESS NOTE SERVICE DATE: 01/24/2022 SERVICE TIME: 3:44 PM SW met with pt in common area to discuss discharge plans. Pt has a history of noncompliance with medications and appointments. Discussed options of short term SNF stay for rehab and home with home care. Initially, pt states "[place]. I want to go to that place at [facility] in [place] (meaning [facility] acute rehab).". Informed pt he [...] going to SNF. Pt agreed for this keno writer / runner to begin referral process, and is hopeful to go to a SNF near [facility]. Pt is agreeable to being linked with a psychiatrist in [facility] a well. Submitted PAS via [facility]. Awaiting PAS/determination results. Referrals sent to multiple facilities near [facility]. Awaiting acceptance. Tentative discharge by middle to end of this week pending further stabilization, PAS results, and facility acceptance/selection. SW will need to link pt with a psychiatrist. SW will continue to follow. SIGNATURE: AMERICA Lopez, BILINGUAL HR GENERALIST PATIENT NAME: José Manuel Ashton DATE: January 24, 2022 TIME: 3:44 PM [facility] CONSULT PROGon 01-24-2022 CONSULT PROG HNO ID: [id number] Author: Collin Cheema DO Service: Endocrinology Author [...] 500 mg ORAL BID w MEALS Collin Cheema DO 500 mg at 01/23/22 1652 ergocalciferol (vitamin D2) 50,000 Units cap(s) (DRISDOL) 50,000 Units ORAL 1/WK Collin Anette, DO 50,000 Units at 01/23/22 1451 tamsulosin 0.8 mg cap(s) (FLOMAX) 0.8 mg ORAL AT BEDTIME Corky Rodarte MD 0.8 mg at 01/23/222042 divalproex ER 500 mg tab(s) (DEPAKOTE ER) 500 mg ORAL DAILY Miriam Jennings APRN.PAYROLL SECRETARY 500 mg at 01/23/22 0859 venlafaxine ER 75 mg cap(s) (EFFEXOR XR) 75 mg ORAL DAILY WITH BREAKFAST Miriam Jennings APRN.PAYROLL SECRETARY haloperidol 5 mg tab(s) (HALDOL) 5 mg [...] 30 mL ORAL DAILY PRN Teresa Diego APRN.PAYROLL SECRETARY acetaminophen 650 mg tab(s) (TYLENOL) 650 mg ORAL q 6 H PRN Teresa Diego APRN.PAYROLL SECRETARY insulin lispro injection (rapid acting) (ADMELOG) SUBCUTANEOUS AT BEDTIME Teresa Diego APRN.PAYROLL SECRETARY 1 Units at 01/23/222044 lisinopril 20 mg tab(s) (ZESTRIL, PRINIVIL) 20 mg ORAL DAILY Teresa Diego APRN.PAYROLL SECRETARY 20 mg at 01/23/22 0859 insulin lispro injection (rapid acting) (ADMELOG) SUBCUTANEOUS w MEALS Teresa Diego, MOBILE PHONE SALESPERSON.PAYROLL SECRETARY 9 Units at 01/23/22 165 pioglitazone (ACTOS) tab(s) 45 mg 45 mg ORAL DAILY Teresa Diego APRN.PAYROLL SECRETARY 45 mg at 01/23/22 0859 docusate sodium 100 mg cap(s) (COLACE) 100 mg ORAL BID Teresa Diego APRN.PAYROLL SECRETARY 100 mg at 01/23/22 204 polyethylene glycol 3350 17 g packet (MIRALAX, GLYCOLAX) 17 g ORAL DAILY Teresa Diego APRN.PAYROLL SECRETARY 17 g at 01/23/22 0859 insulin glargine 33 Units pen (long acting) (LANTUS SOLOSTAR, BASAGLAR KWIKPEN) 33 Units SUBCUTANEOUS AT BEDTIME Teresa Diego APRN.PAYROLL SECRETARY 33 Units at 01/23/22 204 melatonin 3 mg tab(s) 3 mg ORAL [...] January 24, 2022 8:42 AM PAGER: [phone] [facility] NURSING PROGon 01-24-2022 NURSING PROG HNO ID: [id number] Author: Leslie Pa RN Service: Nursing Author Type: Registered Nurse Type: Nursing Progress Note Filed: 01/24/2022 6:36 PM Note Text: Nursing Progress Note Topic of Note: Daily Note José Manuel Ashton [id number] Assumed care of patient. Patient is awake, [...] 127. This note was completed by: Leslie Pa [facility] THERAPY NTon 01-24-2022 THERAPY NT HNO ID: [id number] Author: Ester Ball, Student Service: Occupational Therapy Author Type: Student Type: Therapy (PT/OT/Speech/Resp) Filed: 01/24/2022 1:14 PM Note Text: -- Attestation signed by SKYE Mistry at 01/24/2022 1:17 PM Jonas Gupta OTR/L [...] "I don't want to go to a [place]" or receive home OT services because it [...] a 61 year old male referred by [facility] for depression. Per Psych consult 01/19/2022 [...] and care. Patient is agreeable. Per ED silo worker Roxanne MOORE on 01/17 This keno writer / runner assessed patient via face to face who presents alert and oriented x 4, appears overweight and disheveled, speech is within normal limits appropriate to tone, prosody, melody, phonetic, and syntax, thought process is linear and organized, difficulty concentrating at times, and a poor historian,, mood is depressed with flat affect, with impaired judgement and insight into illness. Patient reports that his Airfield Services Officer sent him to the emergency room for [...] have too many things going on?. This keno writer / runner inquires if patient believ (more content not included)... Normal [facility] ALBUMIN/CREAT RATIO RND URon 01-23-2022 Albumin DL <= 20 mg/L (U) [Mass/Vol] 1334.3 mg/L Normal [facility] Comment on above: Order Comment: Speci men Type: BLOOD SPECIMEN Ordering Facility: [facility] Address: [address] [place] [address] Performed By: #### 5 8410-2 #### [facility] CLIA [id number] [address] [place] [facility] Albumin/Creatinine (U) [Mass ratio] 1438 mg/g High <30 [facility] Comment on above: Order Comment: Speci men Type: BLOOD SPECIMEN Ordering Facility: [facility] Address: [address] [place] [address] Result Comment: Adul t Male and Female Nephrotic Criteria: <30 mg/g is considered normal to mildly increased 30-300 mg/g is considered moderately increased >300 mg/g is considered severely increased KDIGO. (2013). KDIGO 2012 Clinical Practice Guideline for the Evaluation and Management of Chronic Kidney Disease. Official Journal of the International Society of Nephrology, 3(1), 1-150. Performed By: #### 5 8410-2 #### [facility] CLIA [id number] [address] [place] [id number] [place] Creatinine (U) [Mass/Vol] 92.8 mg/dL Normal 20.0-300.0 [facility] Comment on above: Order Comment: Speci men Type: BLOOD SPECIMEN Ordering Facility: [facility] Address: [address] [place] [address] Performed By: #### 5 8410-2 #### [facility] CLIA [id number] [facility] [place], [place] [address] [place] CONSULTon 01-23-2022 CONSULT HNO ID: [id number] Author: Collin Cheema DO Service: Hospital Medicine [...] not recall if he follows with the measurement advisor or not. The patient does report significant [...] quittin.8 Smokeless tobacco: Never Tobacco comments: Smokes [place] Vaping Use Vaping Use: Never used Substance [...] time a week.Disp: 4 EachRfl: 1 Insulin Bee, Disposable, (COMFORT EZ PEN NEEDLES) 29 gauge x 1/2"1 Each once daily.Disp: 100 EachRfl: 3 blood sugar diagnostic (BLOOD GLUCOSE TEST) test oogjg2h/dayDisp: 100 StripRfl: 11 Blood-Glucose Meter monitoring kitFor monitoring sugars 3x/day (patient on insulin)Disp: 1 EachRfl: 1 Lancets lancetsUse as instructed 3x/dayDisp: 100 EachRfl: 11 alcohol swabs (ALCOHOL PREP PADS)Apply 1 application to affected area as directed.Disp: 100 EachRfl: 3 Penicillins Physical Exam BP 132/75 Pulse 80 Temp 36.6 ?C (97.9 ?F) (Oral) Resp (more content not included)... [facility] NURSING PROGon 01-23-2022 NURSING PROG HNO ID: [id number] Author: Huong Black RN Service: Nursing Author [...] Emotional support provided via 1:1. Accu-check before deijbp=578--9 units Lispro insulin given per sliding scale. C/o lower abdominal discomfort and back pain--declined offerings of Tylenol--"Nothing helps." Is calm--sitting in common area @ present time. Q15min safety rds continue. 2234--Compliant with HS meds--took 'whole' with water. Accu-check this LS=452; received 1 unit Lispro insulin per sliding [...] Bed alarm on. Q15min safety rds continue. [facility] NURSING PROG HNO ID: [id number] Author: Sloane Lanza RN Service: Behavioral Health [...] ambulate the unit with a wheeled chair. [facility] NURSING PROG HNO ID: [id number] Author: Tanya Valdez RN Service: Nursing Author Type: Registered Nurse Type: Nursing Progress Note Filed: 01/23/2022 6:17 AM Note Text: Nursing Progress Note Patient Name: José Manuel Ashton Patient Location: [address] Daily Note: Assumed care of pt [...] This note was completed by: Tanya Valdez [facility] ALLIED HEALTHon 01-22-2022 ALLIED HEALTH HNO ID: [id number] Author: Juancho Moore Service: Music Therapy Author Type: Music Therapist [...] to be there." SIGNATURE: Art Gordon Music Mary PATIENT NAME: José Manuel Ashton DATE: January 22, 2022 TIME: 1:11 PM [facility] CONSULTon 01-22-2022 CONSULT HNO ID: [id number] Author: Corky Rodarte MD Service: Urology Author Type: Physician Type: Consults Filed: 01/22/2022 5:58 PM Note Text: [facility] - Consultation JOSÉ MANUEL ASHTON : 1960 AGE: 61 SEX: M CSN: [id number] [facility] LOCATION: [facility] ATTENDING PHYSICIAN: Luis Carlos Short Jr., M.D. DATE OF SERVICE: 01/22/2022 TIME OF SERVICE: 11:09 AM CONSULTING PHYSICIAN: Corky Rodarte M.D. REQUESTING PHYSICIAN: 1. Luis Carlos Short Jr., M.D. 2. Dr. Olivas. REASON FOR THE CONSULTATION: BPH with lower urinary tract symptoms. BRIEF CLINICAL SUMMARY: This 61-year-old man is admitted to [facility] emergently on 01/18/2022 because of psychiatric problems, [...] gentleman in consultation. Corky Rodarte M.D. Urology JL:[id number] /[id number] Normal [facility] Comprehensive metabolic 2000 panelon 01-22-2022 Albumin [Mass/Vol] 3.2 g/dL Low 3.9-4.9 [facility] Comment on above: Order Comment: Speci men Type: BLOOD SPECIMENOrdering Facility: [facility] Address: [address] [place] [address] Performed By: #### 2 4323-8 ####SIKHISM LABORATORYCLIA [id number] [address] [place] ALP [Catalytic activity/Vol] 103 U/L Normal 38-113 [facility] Comment on above: Order Comment: Speci men Type: BLOOD SPECIMENOrdering Facility: [facility] Address: [address] [place] [address] Performed By: #### 2 4323-8 ####SIKHISM LABORATORYCLIA [id number] [address] [place] ALT [Catalytic activity/Vol] 9 U/L Low 10-54 [facility] Comment on above: Order Comment: Speci men Type: BLOOD SPECIMENOrdering Facility: [facility] Address: [address] [address] Performed By: #### 2 4323-8 ####SIKHISM LABORATORYCLIA [id number] [place] [id number] [place] [facility] Anion gap [Moles/Vol] 10 mmol/L Normal 9-18 [facility] Comment on above: Order Comment: Speci men Type: BLOOD SPECIMENOrdering Facility: [facility] Address: [address] Performed By: #### 2 4323-8 ####SIKHISM LABORATORYCLIA [id number] [address] [place], [place] [address] [place] AST [Catalytic activity/Vol] 10 U/L Low 14-40 [facility] Comment on above: Order Comment: Speci men Type: BLOOD SPECIMENOrdering Facility: [facility] Address: [address] [place] [address] Performed By: #### 2 4323-8 ####SIKHISM LABORATORYCLIA [id number] [address] [place], [place] [address] [place] Bilirubin [Mass/Vol] 0.2 mg/dL Normal 0.2-1.3 [facility] Comment on above: Order Comment: Speci men Type: BLOOD SPECIMENOrdering Facility: [facility] Address: [address] [place] [address] Performed By: #### 2 4323-8 ####SIKHISM LABORATORYCLIA [id number] [address] [place] [address] [place] Calcium [Mass/Vol] 9.2 mg/dL Normal 8.5-10.2 [facility] Comment on above: Order Comment: Speci men Type: BLOOD SPECIMENOrdering Facility: [facility] Address: [address] [place] [address] Performed By: #### 2 4323-8 ####SIKHISM LABORATORYCLIA [id number] [address] [place], [place] [address] [place] Chloride [Moles/Vol] 104 mmol/L Normal 97-105 [facility] Comment on above: Order Comment: Speci men Type: BLOOD SPECIMENOrdering Facility: [facility] Address: [address] [place] [address] Performed By: #### 2 4323-8 ####SIKHISM LABORATORYCLIA [id number] [address] [place], [place] [address] [place] CO2 [Moles/Vol] 26 mmol/L Normal 22-30 [facility] Comment on above: Order Comment: Specjonas men Type: BLOOD SPECIMENOrdering Facility: [facility] Address: [address] [place] [address] Performed By: #### 2 4323-8 ####SIKHISM LABORATORYCLIA [id number] [place] [address] [place] Creatinine [Mass/Vol] 1.26 mg/dL High 0.73-1.22 [facility] Comment on above: Order Comment: Brooksi men Type: BLOOD SPECIMENOrdering Facility: [facility] Address: [address] [place] [address] Performed By: #### 2 4323-8 ####SIKHISM LABORATORYCLIA [id number] [place] [address] [place] ESTIMATED GLOMERULAR FILTRATION RATE 64 mL/min/1.73m??? Normal >=60 [facility] Comment on above: Order Comment: Luz men Type: BLOOD SPECIMENOrdering Facility: [facility] Address: [address] [place] [address] Result Comment: Breanne mated Glomerular Filtration Rate [...] actual GFR. Performed By: #### 2 4323-8 ####SIKHISM LABORATORYCLIA [id number] [place] [address] [place] Glucose [Mass/Vol] 141 mg/dL High 74-99 [facility] Comment on above: Order Comment: Luz vaughan Type: BLOOD SPECIMENOrdering Facility: [facility] Address: [address] [place] [address] Result Comment: The [place] Diabetes Association (ADA) provides guidance for cutoff [...] Standards of Medical Care in Diabetes 2016, [place] [employer]. Diabetes Care. 2016.39(Suppl 1). Performed By: #### 2 4323-8 ####SIKHISM LABORATORYCLIA [id number] [address] [place], [place] [address] [place] Potassium [Moles/Vol] 4.2 mmol/L Normal 3.7-5.1 [facility] Comment on above: Order Comment: Speci men Type: BLOOD SPECIMENOrdering Facility: [facility] Address: [address] [place] [address] Performed By: #### 2 4323-8 ####SIKHISM LABORATORYCLIA [id number] [address] [place], [place] [address] [place] Protein [Mass/Vol] 5.7 g/dL Low 6.3-8.0 [facility] Comment on above: Order Comment: Speci men Type: BLOOD SPECIMENOrdering Facility: [facility] Address: [address] [place] [address] Performed By: #### 2 4323-8 ####SIKHISM LABORATORYCLIA [id number] [place] [address] [place] Sodium [Moles/Vol] 140 mmol/L Normal 136-144 [facility] Comment on above: Order Comment: Speci men Type: BLOOD SPECIMENOrdering Facility: [facility] Address: [address] [place] [address] Performed By: #### 2 4323-8 ####SIKHISM LABORATORYCLIA [id number] [place] [address] [place] Urea nitrogen [Mass/Vol] 22 mg/dL Normal 9-24 [facility] Comment on above: Order Comment: Speci men Type: BLOOD SPECIMENOrdering Facility: [facility] Address: [facility] [place] [address] Performed By: #### 2 4323-8 ####SIKHISM LABORATORYCLIA [id number] [address] NURSING PROGon 01-22-2022 NURSING PROG HNO ID: [id number] Author: Myrna Rowland, RN Service: ? Author Type: Registered Nurse Type: Nursing Progress Note Filed: 01/22/2022 7:05 PM Note Text: Nursing Progress Note Patient Name: José Manuel Ashton Patient Location: [address]- Daily Note: 0700 - Assumed care [...] This note was completed by: Myrna Rowland [facility] NURSING PROG HNO ID: [id number] Author: Natasha Levine RN Service: Nursing Author Type: Registered Nurse Type: Nursing Progress Note Filed: 01/22/2022 6:48 AM Note Text: Nursing Progress Note Patient Name: José Manuel Ashton Patient Location: [address] Daily Note: 1328-0597 A/O x 3 and out in common [...] This note was completed by: Natasha Levine [facility] Bacteria Ur Culton 2 Bacteria identified Cx Nom (U) ORGANISM ID: 1 <10,000 CFU/ml Mixed microbiota No further workup. Mixed microbiota can be due to???urine???contamination with skin bacteria at time of collection or presence of a long-term urinary catheter. If a new culture is needed, please consider re-education of the patient on proper midstream collection technique or straight catheterization for???urine???collection. [facility] Comment on above: Performed By: #### 6 30-4 ####[facility] LABJERALD [id number] [place] [address] [place] CASE MGT INIT Yareli 2021 CASE MGT INIT SANDOVAL HNO ID: [id number] Author: OSCAR Lopez Service: Social Work Author Type: Electrical Maintenance Engineer Type: Care Mgt Initial Assessment Filed: 01/21/2022 11:16 AM Note Text: BEHAVIORAL HEALTH SOCIAL WORK/CARE MANAGEMENT ASSESSMENT AND DISCHARGE PLAN SERVICE DATE: 01/21/2022 SERVICE TIME: 9:14 AM Reason for Admission: Per intake note on 01/19/2022: Nature of the crisis: depression leading to medication noncompliance Presenting Problem: José Manuel Ashton is a 61 year old male referred by [facility] for depression. Per Psych consult 01/19/2022 [...] and care. Patient is agreeable. Per ED silo worker Roxanne MOORE on 01/17 This keno writer / runner assessed patient via face to face who presents alert and oriented x 4, appears overweight and disheveled, speech is within normal limits appropriate to tone, prosody, melody, phonetic, and syntax, thought process is linear and organized, difficulty concentrating at times, and a poor historian,, mood is depressed with flat affect, with impaired judgement and insight into illness. Patient reports that his Airfield Services Officer sent him to the emergency room for [...] have too many things going on?. This keno writer / runner inquires if patient believes he will get [...] that he has been forced [place] in the past for not caring for himself. This keno writer / runner discussed with patient potential for a [facility] nurse to come into home to assist with his medication management to ensure he is caring for self properly and taking medications. Patient has been calm and cooperative in the ED with no restraints or medications administered. " Legal Status: Voluntary Important Contacts: Meche Sanders (sister) [phone] Marek Ashton (Brother) [phone] Does the patient/wholesale representative consent to contact with the above [...] Manuel Ashton was born and raised in [place], [place] by his mother and father. Pt is the youngest of 17 children. 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 Support System: L (more content not included)... [facility] CONSULTon 01-21-2022 CONSULT HNO ID: [id number] Author: Philip Mayfield DPM Service: Podiatry Author [...] PHYSICIAN: Dr. Mike Wagner PRIMARY CARE PHYSICIAN: Belgica Vega DO Subjective Mr. Ashton is a 61 year old [...] quittin.8 Smokeless tobacco: Never Tobacco comments: Smokes [place] Vaping Use Vaping Use: Never used Substance [...] 4 Each, Rfl: 1, Not Taking Insulin Bee, Disposable, (COMFORT EZ PEN NEEDLES) 29 gauge [...] docusate sodiu (more content not included)... Normal [facility] HAV IgM Ser Qlon 01-21-2022 HAV IgM Ql (S) Negative Normal Negative [facility] Comment on above: Order Comment: Specjonas vaughan Type: BLOOD SPECIMEN Ordering Facility: [facility] Address: [address] [place] [address] Result Comment: No e vidence of recent infection with Hepatitis A virus. Performed By: #### 5 8410-2 #### [facility] CLIA [id number] [address] [place] [address] [place] HBV core IgM Ser Qlon 2021 HBV core IgM Ql (S) Negative Normal Negative [facility] Comment on above: Order Comment: Luz vaughan Type: BLOOD SPECIMEN Ordering Facility: [facility] Address: [address] [place] [address] Result Comment: No e vidence of recent infection with Hepatitis B virus. Should recent infection be suspected, repeat testing may be considered 3-4 weeks after this draw. Performed By: #### 5 8410-2 #### [facility] CLIA [id number] [address] [place] [address] [place] HBV surface Ab IA Ql (S)on 1 HBV surface Ag Ql (S) Negative Normal Negative [facility] Comment on above: Order Comment: Speci [facility] Type: BLOOD SPECIMEN Ordering Facility: [facility] Address: [address] [place] [address] Performed By: #### 5 8410-2 #### [facility] CLIA [id number] ATTN JENNIFER [address] HCV RNA SerPl BETO+probe-aCnc on 01-21-2022 HCV RNA BETO+probe Qn Not detected Normal HCV RNA not detected by PCR. [facility] Comment on above: Order Comment: Speci men Type: BLOOD SPECIMENOrdering Facility: [facility] Address: [address] [place] [address] Performed By: #### 1 1011-4 ####[facility] LABCLIA [id number] [id number] HISTORY PHYSICALon HISTORY PHYSICAL HNO ID: [id number] Author: Yarely Dejesus MD Service: Psychiatry Author Type: Resident Type: HANDP Filed: 01/20/2022 11:49 PM Note Text: -- Attestation signed by Luis Carlos Short Jr., MD at 01/21/2022 2:08 PM Patient examined this morning with Buddy Domínguez and Patricia and chart reviewed. I confirmed jiang [...] house, and outpatient follow up with educator, keno writer / runner could be helpful. Luis Carlos Short Jr, [...] and care. Patient is agreeable. Per ED silo worker Roxanne MOORE on 01/17 This keno writer / runner assessed patient via face to face who presents alert and oriented x 4, appears overweight and disheveled, speech is within normal limits appropriate to tone, prosody, melody, phonetic, and syntax, thought process is linear and organized, difficulty concentrating at times, and a poor historian,, mood is depressed with flat affect, with impaired judgement and insight into illness. Patient reports that his Airfield Services Officer sent him to the emergency room for [...] have too many things going on?. This keno writer / runner inquires if patient believes he will get [...] denies any ho (more content not included)... [facility] NURSING PROGon 01-21-2022 NURSING PROG HNO ID: [id number] Author: Huong Glass RN Service: Nursing Author Type: Counselor Type: Nursing Progress Note Filed: 01/21/2022 7:35 PM Note Text: [id number] Assumed care of pt sitting on edge [...] unsteady gait physical therapy consult in. This keno writer / runner provided pt with wheelchair and front wheeled walker. Medication compliant whole with water. Accu checks AC AND HS with sliding scale coverage. Continent of bowel and bladder set up for ADL's. Calm and cooperative with care, pleasant and social with peers. Participated in group activities. Security notified of personal vehicle in parking lot. Safety precautions maintained. [facility] Reagin and Treponema pallidu m IgG and IgM [Interp]on 01-21-2022 SYPHILIS INTERPRETATION Cannot exclude recent Treponemal infection if specimen collected within 7-10 days after appearance of suspect lesions or 2-3 weeks after an exposure. Clinical correlation is required. [facility] Comment on above: Order Comment: Speci men Type: BLOOD SPECIMEN Ordering Facility: [facility] Address: [address] [place] [address] Performed By: #### 5 8410-2 #### [facility] CLIA [id number] [address] [place] [address] OF [facility] T. pallidum IgG+IgM IA Ql (S) Non-Reactive Normal Nonreactive [facility] Comment on above: Order Comment: [facility] Type: BLOOD SPECIMEN Ordering Facility: [facility] Address: [address] [place] [address] Performed By: #### 5 8410-2 #### [facility] CLIA [id number] [address] [place], [place] [address] [place] THERAPY NTon 01-21-2022 THERAPY NT HNO ID: [id number] Author: Prasanth Jeronimo, PT Service: Physical Therapy Author Type: Physical Therapist Type: Therapy (PT/OT/Speech/Resp) Filed: 01/21/2022 2:32 PM Note Text: Physical Therapy Evaluation SERVICE DATE: 01/21/2022 SERVICE TIME: 1341 to 1408 ROOM: [id number] Recommended Discharge Disposition: Subacute/SNF Recommended Discharge Disposition [...] emergency department at the direction of his carpet weaver, Dr. Kennedy for psych eval Relevant Past [...] doing here? They sent me to the [employer] bin" CURRENT FUNCTIONAL STATUS: Most recent performance Current [...] /Caregiver Goal (more content not included)... Normal [facility] URINALYSIS, REFLEX MICROSCOP ICon 01-21-2022 Bacteria LM.HPF (Urine sed) [#/Area] Rare Abnormal None Seen [facility] Comment on above: Order Comment: Speci men Type: URINE SPECIMENOrdering Facility: [facility] Address: [address] [place] [address] [place] [address] Performed By: #### L [id number] ####SIKHISM LABORATORYCLIA [id number] [address] [place] [address] [place] [address] [place] Bilirubin Ql (U) Negative Normal Negative [facility] Comment on above: Order Comment: Speci men Type: URINE SPECIMENOrdering Facility: [facility] Address: [address] [address] Performed By: #### L [id number] ####SIKHISM LABORATORYCLIA [id number] [address] [place], [place] [address] [facility] [place] Clarity (Unsp spec) Clear Normal Clear [facility] Comment on above: Order Comment: Speci men Type: URINE SPECIMENOrdering Facility: [facility] Address: [facility] [address] Performed By: #### L [id number] ####SIKH[facility] LABORATORYCLIA [id number] [address] [place] [address] [place] Color (U) Yellow Normal Yellow [facility] Comment on above: Order Comment: Speci men Type: URINE SPECIMENOrdering Facility: [facility] Address: [address] [address] Performed By: #### L [id number] ####SIKH[facility] LABORATORYCLIA [id number] [place] [id number] [place] Glucose Test strip (U) [Mass/Vol] 2+ Abnormal Negative [facility] Comment on above: Order Comment: Speci men Type: URINE SPECIMENOrdering Facility: [facility] Address: [address] Performed By: #### L [id number] ####SIKH[facility] LABORATORYCLIA [id number] [place] [id number] [place] Hemoglobin Ql (U) 1+ Abnormal Negative [facility] Comment on above: Order Comment: Speci men Type: URINE SPECIMENOrdering Facility: [facility] Address: [facility] [address] Performed By: #### L [id number] ####SIKH[facility] LABORATORYCLIA [id number] [address] [place], [place] [address] [place] Ketones Ql (U) Trace Abnormal Negative [facility] Comment on above: Order Comment: Speci men Type: URINE SPECIMENOrdering Facility: [facility] Address: [address] [place] [address] Performed By: #### L [id number] ####SIKH[facility] LABORATORYCLIA [id number] [address] [place], [place] [address] [place] Leukocyte esterase Test strip Ql (U) Negative Normal Negative [facility] Comment on above: Order Comment: Speci men Type: URINE SPECIMENOrdering Facility: [facility] Address: [address] [place] [address] Performed By: #### L [id number] ####[facility]KH[facility] LABORATORYCLIA [id number] [address] [place], [place] [address] [place] Nitrite Ql (U) Negative Normal Negative [facility] Comment on above: Order Comment: Speci men Type: URINE SPECIMENOrdering Facility: [facility] Address: [address] [place] [address] Performed By: #### L [id number] ####[facility] LABORATORYCLIA [id number] [address] [place], [place] [address] [place] pH (U) 5.5 [pH] Normal 5.0-8.0 [facility] Comment on above: Order Comment: Speci men Type: URINE SPECIMENOrdering Facility: [facility] Address: [address] [place] [address] Performed By: #### L [id number] ####[facility] LABORATORYCLIA [id number] [place] [address] [place] Protein (U) [Mass/Vol] Normal [facility] Comment on above: Order Comment: Speci men Type: URINE SPECIMENOrdering Facility: [facility] Address: [address] [place], [place] [address] Result Comment: Visi ble blood causes falsely elevated results for analyte Protein. Due to this limitation, Protein will not be reported for patients whose urine contains visible blood. Performed By: #### L [id number] ####[facility] LABORATORYCLIA [id number] [address] [place] RBC LM.HPF (Urine sed) [#/Area] 0-3 /HPF Normal 0-3 /HPF [facility] Comment on above: Order Comment: Speci men Type: URINE SPECIMENOrdering Facility: [facility] Address: [address] [place] [address] Performed By: #### L [id number] ####[facility] LABORATORYCLIA [id number] [address] [place] Specific gravity (U) [Rel density] >=1.030 High 1.005-1.030 [facility] Comment on above: Order Comment: Speci men Type: URINE SPECIMENOrdering Facility: [facility] Address: [address] [place] [address] Performed By: #### L [id number] ####[facility] LABORATORYCLIA [id number] [address] [place] Urobilinogen Ql (U) 0.2 EU/dL Normal 0.2-1.0 EU/dL [facility] Comment on above: Order Comment: Speci men Type: URINE SPECIMENOrdering Facility: [facility] Address: [address] [place] [address] Performed By: #### L [id number] ####[facility] LABORATORYCLIA [id number] [place] [address] [place] WBC LM.HPF (Urine sed) [#/Area] 0-5 /HPF Normal 0-5 /HPF [facility] Comment on above: Order Comment: Speci men Type: URINE SPECIMENOrdering Facility: [facility] Address: [address] [place] [address] Performed By: #### L [id number] ####[facility] LABORATORYCLIA [id number] [address] [place], [place] [address] [place] Basic metabolic 2000 panelon 01-20-2022 Anion gap [Moles/Vol] 8 mmol/L Low 9-18 [facility] Comment on above: Order Comment: Speci men Type: BLOOD SPECIMEN Ordering Facility: [facility] Address: [address] [place], [place] [address] Performed By: #### 5 8410-2 #### [facility] CLIA [id number] [place] [address] [place] Calcium [Mass/Vol] 9.1 mg/dL Normal 8.5-10.2 [facility] Comment on above: Order Comment: Speci men Type: BLOOD SPECIMEN Ordering Facility: [facility] Address: [address] [place], [place] [address] Performed By: #### 5 8410-2 #### [facility] CLIA [id number] [address] [place], [place] [address] [place] Chloride [Moles/Vol] 103 mmol/L Normal 97-105 [facility] Comment on above: Order Comment: Speci men Type: BLOOD SPECIMEN Ordering Facility: [facility] Address: [address] [place], [place] [address] Performed By: #### 5 8410-2 #### [facility] CLIA [id number] [address] [place], [place] [address] [place] CO2 [Moles/Vol] 27 mmol/L Normal 22-30 [facility] Comment on above: Order Comment: Speci men Type: BLOOD SPECIMEN Ordering Facility: [facility] Address: [address] [place], [place] [address] Performed By: #### 5 8410-2 #### [facility] CLIA [id number] [address] [place], [place] [address] [place] Creatinine [Mass/Vol] 1.10 mg/dL Normal 0.73-1.22 [facility] Comment on above: Order Comment: Luz vaughan Type: BLOOD SPECIMEN Ordering Facility: [facility] Address: [address] [place], [place] [address] Performed By: #### 5 8410-2 #### [facility] CLIA [id number] [address] [place] [address] ESTIMATED GLOMERULAR FILTRATION RATE 76 mL/min/1.73m??? Normal >=60 [facility] Comment on above: Order Comment: Luz vaughan Type: BLOOD SPECIMEN Ordering Facility: [facility] Address: [address] [place] [address] Result Comment: Breanne mated Glomerular Filtration Rate [...] GFR. Performed By: #### 5 8410-2 #### [facility] CLIA [id number] [address] [place] [address] [place] Glucose [Mass/Vol] 173 mg/dL High 74-99 [facility] Comment on above: Order Comment: Luz vaughan Type: BLOOD SPECIMEN Ordering Facility: [facility] Address: [address] [place] [address] Result Comment: The [place] Diabetes Association (ADA) provides guidance for cutoff [...] Standards of Medical Care in Diabetes 2016, [place] Diabetes Association. Diabetes Care. 2016.39(Suppl 1). Performed By: #### 5 8410-2 #### [facility] CLIA [id number] [address] [place] [address] [place] Potassium [Moles/Vol] 3.8 mmol/L Normal 3.7-5.1 [facility] Comment on above: Order Comment: Speci men Type: BLOOD SPECIMEN Ordering Facility: [facility] Address: [address] [place] [address] Performed By: #### 5 8410-2 #### [facility] CLIA [id number] [address] [place] [address] [facility] Sodium [Moles/Vol] 138 mmol/L Normal 136-144 [facility] Comment on above: Order Comment: Speci men Type: BLOOD SPECIMEN Ordering Facility: [facility] Address: [address] [place] [address] Performed By: #### 5 8410-2 #### [facility] CLIA [id number] [address] [place] [address] [facility] Urea nitrogen [Mass/Vol] 17 mg/dL Normal 9-24 [facility] Comment on above: Order Comment: Speci men Type: BLOOD SPECIMEN Ordering Facility: [facility] Address: [address] [place] [address] Performed By: #### 5 8410-2 #### [facility] CLIA [id number] [address] [place], [place] [address] [facility] [place] CBC panel Auto (Bld)on 01-20 Erythrocyte distribution width (RBC) [Ratio] 12.8 % Normal 11.5-15.0 [facility] Comment on above: Order Comment: Speci men Type: BLOOD SPECIMENOrdering Facility: [facility] Address: [address] [place] [address] Performed By: #### 5 8410-2 ####[facility] [id number] [place] [address] [place] Hematocrit (Bld) [Volume fraction] 41.1 % Normal 39.0-51.0 [facility] Comment on above: Order Comment: Speci men Type: BLOOD SPECIMENOrdering Facility: [facility] Address: [address] [place] [address] Performed By: #### 5 8410-2 ####[facility] [id number] [place] [address] [place] Hemoglobin (Bld) [Mass/Vol] 13.8 g/dL Normal 13.0-17.0 [facility] Comment on above: Order Comment: Speci men Type: BLOOD SPECIMENOrdering Facility: [facility] Address: [address] [place] [address] Performed By: #### 5 8410-2 ####[facility] [id number] [address] [facility] MCH (RBC) [Entitic mass] 28.6 pg Normal 26.0-34.0 [facility] Comment on above: Order Comment: Speci men Type: BLOOD SPECIMENOrdering Facility: [facility] Address: [address] [place] [address] Performed By: #### 5 8410-2 ####[facility]ORY[facility] [id number] [place] [address] [place] MCHC (RBC) [Mass/Vol] 33.6 g/dL Normal 30.5-36.0 [facility] Comment on above: Order Comment: Speci men Type: BLOOD SPECIMENOrdering Facility: [facility] Address: [address] [place] [address] Performed By: #### 5 8410-2 ####[facility] [id number] [address] [place] MCV (RBC) [Entitic vol] 85.1 fL Normal 80.0-100.0 [facility] Comment on above: Order Comment: Speci men Type: BLOOD SPECIMENOrdering Facility: [facility] Address: [address] [place], [place] [address] Performed By: #### 5 8410-2 ####[facility] [id number] [place] [id number] [place] Nucleated RBC (Bld) [#/Vol] 10*3/uL Normal <0.01 [facility] Comment on above: Order Comment: Speci men Type: BLOOD SPECIMENOrdering Facility: [facility] Address: [address] [place], [place] [address] Performed By: #### 5 8410-2 ####[facility] [id number] [place] [address] [place] Platelet mean volume (Bld) [Entitic vol] 10.0 fL Normal 9.0-12.7 [facility] Comment on above: Order Comment: Speci men Type: BLOOD SPECIMENOrdering Facility: [facility] Address: [address] [place], [place] [address] Performed By: #### 5 8410-2 ####[facility] [id number] [address] [place] Platelets (Bld) [#/Vol] 246 10*3/uL Normal 150-400 [facility] Comment on above: Order Comment: Speci men Type: BLOOD SPECIMENOrdering Facility: [facility] Address: [address] [place], [place] [address] Performed By: #### 5 8410-2 ####[facility] [id number] [place] [address] [place] RBC (Bld) [#/Vol] 4.83 10*6/uL Normal 4.20-6.00 [facility] Comment on above: Order Comment: Speci men Type: BLOOD SPECIMENOrdering Facility: [facility] Address: [address] [place] [phone] Performed By: #### 5 8410-2 ####[facility]ORYCL[facility] [id number] [place] [id number] [facility] WBC (Bld) [#/Vol] 6.90 10*3/uL Normal 3.70-11.00 [facility] Comment on above: Order Comment: Speci men Type: BLOOD SPECIMENOrdering Facility: [facility] Address: [address] [place] [phone] Performed By: #### 5 8410-2 ####[facility] [id number] [place] [id number] [facility] CNDSon 01-20-2022 CNDS HNO ID: [id number] Author: Kylah Orantes MD Service: ? Author Type: Physician Type: Discharge Summary Filed: 02/06/2022 12:28 PM Note Text: Internal Medicine discharge [facility] PATIENT NAME: José Manuel Ashton Discharge DATE: [...] (A) 4.2 - 5.6 % Final Comment: Location:[facility], [address] [place] [address] Point of care (POC) Hemoglobin A1c (HGBA1C) [...] specific diabetes management situations: The POC device assembler movement provides a normal range of 4.2% to 6.5% for the HGBA1C POC test. However, the [place] Diabetes Association guidelines indicate that patients with [...] mL) Commonly known as: LANTUS SOLOSTAR, BASAGLAR ONEALIKPEN Inject 26 Units subcutaneously daily at bedtime. Insulin Bee (Disposable) 29 gauge x 1/2" Commonly known [...] one time a week. Kylah Orantes MD [facility] Lipid 1996 panelon 2 Cholesterol [Mass/Vol] 260 mg/dL High <200 [facility] Comment on above: Order Comment: Speci men Type: BLOOD SPECIMENOrdering Facility: [facility] Address: [address] [place] [address] Result Comment: <200 mg/dL, Desirable 200-239 mg/dL, Borderline high >239 mg/dL, High Performed By: #### 2 4331-1 ####[facility] [id number] [address] [place] Cholesterol in HDL [Mass/Vol] 40 mg/dL Normal >39 [facility] Comment on above: Order Comment: Speci [facility] Type: BLOOD SPECIMENOrdering Facility: [facility] Address: [address] [place] [address] Result Comment: 40-5 9 mg/dL, Acceptable >59 mg/dL, High: Negative risk factor for coronary heart disease <40 mg/dL, Low: Positive risk factor for coronary heart disease Performed By: #### 2 4331-1 ####[facility]CLIA [id number] [place] [id number] [place] Cholesterol in LDL [Mass/Vol] 162 mg/dL High <100 [facility] Comment on above: Order Comment: [facility] Type: BLOOD SPECIMENOrdering Facility: [facility] Address: [address] [place] [address] Result Comment: <100 mg/dL, Optimal 100-129 mg/dL, Near optimal/above optimal 130-159 mg/dL, Borderline high 160-189 mg/dL, High >189 mg/dL, Very high Secondary prevention optimal LDL Cholesterol levels are recommended to be < 70 mg/dL Performed By: #### 2 4331-1 ####[facility] [id number] [place] [id number] [place] Cholesterol in LDL/Cholesterol in HDL [Mass ratio] 4.05 {ratio} High <2.54 [facility] Comment on above: Order Comment: Speci men Type: BLOOD SPECIMENOrdering Facility: [facility] Address: [address] [place] [address] Result Comment: Refe rence: 1. National Cholesterol Education Program ATP III Guideline At-A-Glance Quick Desk Reference: National Heart, Lung, and Blood [place]. National Institutes of Health. 2001: NIH Publication No. 01-3305. 2. An International Atherosclerosis Society position paper: global recommendations for the management of dyslipidemia: executive summary, Atherosclerosis. 2014: 232(2):410-413. Performed By: #### 2 4331-1 ####[facility]CLIA [id number] [place] [id number] [place] Cholesterol in VLDL [Mass/Vol] 58 mg/dL High <30 [facility] Comment on above: Order Comment: Speci men Type: BLOOD SPECIMENOrdering Facility: [facility] Address: [address] [place] [address] Performed By: #### 2 4331-1 ####[facility]CL[facility] [id number] [place] [id number] [place] Cholesterol non HDL [Mass/Vol] 220 mg/dL High <130 [facility] Comment on above: Order Comment: Speci men Type: BLOOD SPECIMENOrdering Facility: [facility] Address: [facility] [place] [address] Result Comment: <130 mg/dL, Optimal 130-159 mg/dL, Near optimal/above optimal 160-189 mg/dL, Borderline high 190-219 mg/dL, High >219 mg/dL, Very high Secondary prevention optimal non HDL Cholesterol levels are recommended to be <100 mg/dL Performed By: #### 2 4331-1 ####[facility] [id number] [address] Cholesterol.total/Cho lesterol in HDL [Mass ratio] 6.50 {ratio} High <5.10 [facility] Comment on above: Order Comment: Speci men Type: BLOOD SPECIMENOrdering Facility: [facility] Address: [address] [place] [address] Performed By: #### 2 4331-1 ####[facility] [id number] [address] FASTING TIME Normal [facility] Comment on above: Order Comment: Speci men Type: BLOOD SPECIMENOrdering Facility: [facility] Address: [address] [place] [address] Result Comment: Unkn own Performed By: #### 2 4331-1 ####[facility] [id number] [address] Triglyceride [Mass/Vol] 291 mg/dL High <150 [facility] Comment on above: Order Comment: Speci men Type: BLOOD SPECIMENOrdering Facility: [facility] Address: [address] [place] [address] Result Comment: <150 mg/dL, Normal 150-199 mg/dL, Borderline high 200-499 mg/dL, High >499 mg/dL, Very high Performed By: #### 2 4331-1 ####[facility]CL[facility] [id number] [place] [id number] [facility] NURSING PROGon 01-20-2022 NURSING PROG HNO ID: [id number] Author: Keyla Trammell RN Service: Nursing Author Type: Registered Nurse Type: Nursing Progress Note Filed: 01/21/2022 7:01 AM Note Text: Nursing Progress note: ([id number]) Start of shift there was an order to transfer Patient to . Pt is AANDOx3. Start of shift Pt seen sitting at the edge of his bed, appears disheveled and withdrawn. Pt has poor eye contact and looks down at the ground while talking with this keno writer / runner.Pt reports feeling angry and frustrated that he [...] belongings were transferred to in stable condition. [facility] NURSING PROG HNO ID: [id number] Author: Chele Mcginnis RN Service: Nursing Author [...] losing his balance. Spoke with my nurse work manager to possibly get the patient transferred to . After speaking with clinical nurse work manager she recommended transfer to geriatric psych unit. Nature of the crisis: depression leading to medication noncompliance Presenting Problem: José Manuel Ashton is a 61 year old male referred by [facility] for depression. Per Psych consult 01/19/2022 [...] and care. Patient is agreeable. Per ED BH silo worker Roxanne MOORE on 01/17 This keno writer / runner assessed patient via face to face who presents alert and oriented x 4, appears overweight and disheveled, speech is within normal limits appropriate to tone, prosody, melody, phonetic, and syntax, thought process is linear and organized, difficulty concentrating at times, and a poor historian,, mood is depressed with flat affect, with impaired judgement and insight into illness. Patient reports that his Airfield Services Officer sent him to the emergency room for [...] have too many things going on?. This keno writer / runner inquires if patient believes he will get [...] that he has been forced to a [place] [facility] [place] in the past for not caring for himself. This keno writer / runner discussed with patient potential for a [facility] nurse to come into home to assist with his medication management to ensure he is caring for self properly and taking medications. Patient has been calm and cooperative in the ED with no restraints or medications administered. [facility] HNO [facility]: [id number] Author: RT Vishal(R) Service: ? Author Type: Technologist Type: Allied [...] IV DATA: Not applicable SIGNED BY: RT Vishal(R) January 19, 2022 3:45 AM [facility] Bacteria Ur Culton 2 Bacteria identified Cx Nom (U) CULTURE, URINE: No growth (<1,000 CFU/ml) [facility] Comment on above: Performed By: #### 6 30-4 ####[facility] LABCLIA [id number] [place] [address] [place] Basic metabolic 2000 panelon 01-19-2022 Anion gap [Moles/Vol] 10 mmol/L Normal 9-18 [facility] Comment on above: Order Comment: Speci men Type: BLOOD SPECIMENOrdering Facility: [facility] Address: [address] [place] [address] Performed By: #### 1 9123-9, 70654-2 ####[facility]ORYCLIA [id number] [address] [place], [place] [address] [place] Calcium [Mass/Vol] 9.1 mg/dL Normal 8.5-10.2 [facility] Comment on above: Order Comment: Speci men Type: BLOOD SPECIMENOrdering Facility: [facility] Address: [address] [place] [address] Performed By: #### 1 9123-9, 74781-5 ####[facility]ORYCLIA [id number] [place] [address] [place] Chloride [Moles/Vol] 102 mmol/L Normal 97-105 [facility] Comment on above: Order Comment: Speci men Type: BLOOD SPECIMENOrdering Facility: [facility] Address: [address] [place] [address] Performed By: #### 1 9123-9, 22276-6 ####[facility]ORYCLIA [id number] [place] [id number] [place] CO2 [Moles/Vol] 27 mmol/L Normal 22-30 [facility] Comment on above: Order Comment: Speci men Type: BLOOD SPECIMENOrdering Facility: [facility] Address: [address] [place], [place] [address] Performed By: #### 1 9123-9, 30253-0 ####[facility]ORYCLIA [id number] [place] [id number] [place] Creatinine [Mass/Vol] 1.34 mg/dL High 0.73-1.22 [facility] Comment on above: Order Comment: Speci men Type: BLOOD SPECIMENOrdering Facility: [facility] Address: [facility] [place] [address] Performed By: #### 1 9123-9, 03879-7 ####[facility]ORYCLIA [id number] [place] [address] [place] ESTIMATED GLOMERULAR FILTRATION RATE 60 mL/min/1.73m??? Normal >=60 [facility] Comment on above: Order Comment: Luz vaughan Type: BLOOD SPECIMENOrdering Facility: [facility] Address: [address] [place] [address] Result Comment: Breanne mated Glomerular Filtration Rate [...] actual GFR. Performed By: #### 1 9123-9, 86095-1 ####[facility]ORYCLIA [id number] [place] [address] [place] Glucose [Mass/Vol] 332 mg/dL High 74-99 [facility] Comment on above: Order Comment: Luz vaughan Type: BLOOD SPECIMENOrdering Facility: [facility] Address: [address] [place] [address] Result Comment: The [place] Diabetes Association (ADA) provides guidance for cutoff [...] Standards of Medical Care in Diabetes 2016, [place] Diabetes Association. Diabetes Care. 2016.39(Suppl 1). Performed By: #### 1 9123-9, 33692-3 ####[facility]ATORYCLIA [id number] [place] [id number] [place] Potassium [Moles/Vol] 5.0 mmol/L Normal 3.7-5.1 [facility] Comment on above: Order Comment: Speci men Type: BLOOD SPECIMENOrdering Facility: [facility] Address: [address] [place] [address] Performed By: #### 1 9123-9, 38939-6 ####[facility]ORYCLIA [id number] [address] [place], [place] [address] [place] Sodium [Moles/Vol] 139 mmol/L Normal 136-144 [facility] Comment on above: Order Comment: Speci men Type: BLOOD SPECIMENOrdering Facility: [facility] Address: [address] [place] [address] Performed By: #### 1 91239, 00496-6 ####[facility]ATORYCLIA [id number] [place] [id number] [place] Urea nitrogen [Mass/Vol] 21 mg/dL Normal 9-24 [facility] Comment on above: Order Comment: Speci men Type: BLOOD SPECIMENOrdering Facility: [facility] Address: [address] [place] [address] Performed By: #### 1 9123-9, 79757-0 ####[facility]ORATORYCLIA [id number] [place] [id number] [place] CBC panel Auto (Bld)on 01-19 Erythrocyte distribution width (RBC) [Ratio] 12.9 % Normal 11.5-15.0 [facility] Comment on above: Order Comment: Speci men Type: BLOOD SPECIMENOrdering Facility: [facility] Address: [address] [place] [address] Performed By: #### 5 8410-2 ####[facility]ORATORYCLIA [id number] [address] Hematocrit (Bld) [Volume fraction] 42.6 % Normal 39.0-51.0 [facility] Comment on above: Order Comment: Speci men Type: BLOOD SPECIMENOrdering Facility: [facility] Address: [address] [place] [address] Performed By: #### 5 8410-2 ####[facility]ORATORYCLIA [id number] [address] Hemoglobin (Bld) [Mass/Vol] 14.1 g/dL Normal 13.0-17.0 [facility] Comment on above: Order Comment: Speci men Type: BLOOD SPECIMENOrdering Facility: [facility] Address: [address] [place] [address] Performed By: #### 5 8410-2 ####[facility] LABORATORYCLIA [id number] [address] [facility] MCH (RBC) [Entitic mass] 28.3 pg Normal 26.0-34.0 [facility] Comment on above: Order Comment: Speci men Type: BLOOD SPECIMENOrdering Facility: [facility] Address: [address] [place] [address] Performed By: #### 5 8410-2 ####[facility]ORATORYCLIA [id number] [address] [place] MCHC (RBC) [Mass/Vol] 33.1 g/dL Normal 30.5-36.0 [facility] Comment on above: Order Comment: Speci men Type: BLOOD SPECIMENOrdering Facility: [facility] Address: [address] [place] [address] Performed By: #### 5 8410-2 ####[facility] LABORATORYCLIA [id number] [address] [place] MCV (RBC) [Entitic vol] 85.4 fL Normal 80.0-100.0 [facility] Comment on above: Order Comment: Speci men Type: BLOOD SPECIMENOrdering Facility: [facility] Address: [address] Performed By: #### 5 8410-2 ####[facility] LABORATORYCLIA [id number] [address] [place], [place] [address] [place] Nucleated RBC (Bld) [#/Vol] 10*3/uL Normal <0.01 [facility] Comment on above: Order Comment: Speci men Type: BLOOD SPECIMENOrdering Facility: [facility] Address: [address] [place], [place] [address] Performed By: #### 5 8410-2 ####[facility] LABORATORYCLIA [id number] [place] [id number] [place] Platelet mean volume (Bld) [Entitic vol] 10.0 fL Normal 9.0-12.7 [facility] Comment on above: Order Comment: Speci men Type: BLOOD SPECIMENOrdering Facility: [facility] Address: [address] [place], [place] [address] Performed By: #### 5 8410-2 ####[facility] LABORATORYCLIA [id number] [place] [id number] [place] Platelets (Bld) [#/Vol] 244 10*3/uL Normal 150-400 [facility] Comment on above: Order Comment: Speci men Type: BLOOD SPECIMENOrdering Facility: [facility] Address: [address] [place] [address] Performed By: #### 5 8410-2 ####[facility] LABORATORYCLIA [id number] [place] [id number] [place] RBC (Bld) [#/Vol] 4.99 10*6/uL Normal 4.20-6.00 [facility] Comment on above: Order Comment: Speci men Type: BLOOD SPECIMENOrdering Facility: [facility] Address: [address] [place], [place] [address] Performed By: #### 5 8410-2 ####[facility] LABORATORYCLIA [id number] [address] [address] [facility] WBC (Bld) [#/Vol] 6.42 10*3/uL Normal 3.70-11.00 [facility] Comment on above: Order Comment: Speci men Type: BLOOD SPECIMENOrdering Facility: [facility] Address: [address] [place] [address] Performed By: #### 5 8410-2 ####[facility] LABORATORYCLIA [id number] [address] [address] [facility] CONSULT PROGon 01-19-2022 CONSULT PROG HNO ID: [id number] Author: Rafal Carroll PA-C Service: Psychiatry Author Type: Physician Assortment Planner Type: Consult Progress Note Filed: 01/19/2022 2:51 [...] 33 Units SUBCUTANEOUS AT BEDTIME Teresa Diego, MOBILE PHONE SALESPERSON.PAYROLL SECRETARY atropine 0.5 mg injection 0.5 mg INTRAVENOUS PRN Radha Mack APRN.PAYROLL SECRETARY NaCl 0.9% iv flush bag 20 mL INTRAVENOUS PRN Radha Mack APRN.PAYROLL SECRETARY sodium chloride 0.9 % (flush) 3-5 mL (BD POSIFLUSH) 3-5 mL INTRAVENOUS q 12 H Radha Mack APRN.PAYROLL SECRETARY 5 mL at 01/18/222014 aluminum-magnesium hydroxide-simethicone 200-200-20 mg/5 mL 30 mL (MAALOX,MYLANTA,MAG-AL PLUS) 30 mL ORAL DAILY PRN Radha Mack APRN.PAYROLL SECRETARY acetaminophen 650 mg tab(s) (TYLENOL) 650 mg ORAL q 6 H PRN Radha Mack APRN.PAYROLL SECRETARY 650 mg at 01/18/22 0818 insulin lispro injection (rapid acting) (ADMELOG) SUBCUTANEOUS AT BEDTIME Radha Mack APRN.PAYROLL SECRETARY 2 Units at 01/18/22 0123 hydrALAZINE 10 mg injection (APRESOLINE) 10 mg INTRAVENOUS q 6 H PRN Radha Mack APRN.PAYROLL SECRETARY lisinopril 20 mg tab(s) (ZESTRIL, PRINIVIL) 20 mg ORAL DAILY Radha Mack, MOBILE PHONE SALESPERSON.PAYROLL SECRETARY 20 mg at 01/19/22 0848 tamsulosin 0.4 mg cap(s) (FLOMAX) 0.4 mg ORAL AT BEDTIME Radha Mack APRN.PAYROLL SECRETARY 0.4 mg at 01/18/222014 insulin lispro injection (rapid acting) (ADMELOG) SUBCUTANEOUS w MEALS Nusrat Nash APRN.PAYROLL SECRETARY 9 Units at 01/19/22 0825 pioglitazone 45 mg tab(s) (ACTOS) 45 mg ORAL DAILY Nusrat Nash APRN.PAYROLL SECRETARY 45 mg at 01/19/22 0848 docusate sodium 100 mg cap(s) (COLACE) 100 mg ORAL BID Nusrat Nash APRN.PAYROLL SECRETARY 100 mg at 01/18/222014 polyethylene glycol 3350 17 g packet (MIRALAX, GLYCOLAX) 17 g ORAL DAILY Nusrat Nash APRN.PAYROLL SECRETARY 17 g at 01/18/22 1222 venlafaxine ER [...] (98.1 ?F) 3 (more content not included)... [facility] CT BRAIN WO IVCONon 01-20-20 CT BRAIN WO IVCON * * *Final Report* * * DATE OF EXAM: Jan 19 2022 3:45AM FAVIO 0504 - CT BRAIN WO IVCON / PROCEDURE REASON: Head trauma, moderate-severe * * * * Physician Interpretation * * * * EXAMINATION: CT BRAIN WO IVCON, CT CERVICAL SPINE WO IVCON CLINICAL HISTORY: Head trauma, moderate-severe (accession [id number]), Neck trauma, midline tenderness (Age 16-64y) (accession [id number]) TECHNIQUE: Serial axial images without IV contrast [...] Counting reference: Craniocervical junction. Anatomic Variants: None. Inspector Handbag Frames (topogram) images: Cardiac leads overlie the upper [...] CT: No cervical spine fracture or subluxation. Installer Soft Top: PSCB Transcribe Date/Time: Jan 19 2022 3:52A Dictated by : ASHISH MARY MD This examination was interpreted and the report reviewed and electronically signed by: ASHISH MARY MD on Jan 19 2022 4:00AM EST [id number] [facility] CT CERVICAL SPINE WO IVCONon 01-19-2022 [...] IVCON CLINICAL HISTORY: Head trauma, moderate-severe (accession [id number]), Neck trauma, midline tenderness (Age 16-64y) (accession [id number]) TECHNIQUE: Serial axial images without IV contrast [...] Counting reference: Craniocervical junction. Anatomic Variants: None. Inspector Handbag Frames (topogram) images: Cardiac leads overlie the upper [...] CT: No cervical spine fracture or subluxation. Installer Soft Top: ROBERTA Transcribe Date/Time: Jan 19 2022 3:52A Dictated by : ASHISH MARY MD This examination was interpreted and the report reviewed and electronically signed by: ASHISH MARY MD on Jan 19 2022 4:00AM EST [id number] Normal [facility] ETHYL GLUCURONIDE UR SCRon 1 ETHYL GLUCURONIDE UR SCR Negative Normal Cutoff 500 [facility] Comment on above: Order Comment: Speci men Type: URINE SPECIMENOrdering Facility: [facility] Address: [address] [place] [address] Result Comment: INTE RPRETIVE INFORMATION: Ethyl Glucuronide Screen with Reflex to Confirmation, Urine Ethyl glucuronide is a direct metabolite of ethanol and can be detected up to 80 hours in urine after ethanol ingestion. The cutoff for positive by immunoassay is set at 500 ng/mL. A positive result will be confirmed by liquid chromatography tandem mass spectrometry (LC-MS/MS). Performed By: [employer] [address] [place] [address] Performance Improvement Specialist: Derian Moreno MD, PhD Performed By: #### U EGLUC ####[facility] [id number] [place] [address] Free PSA [Mass/Vol]on 2021 Free PSA/Total PSA [Mass fraction] 49 % [facility] Comment on above: Order Comment: Speci men Type: BLOOD SPECIMEN Ordering Facility: [facility] Address: [address] [place] [address] Result Comment: Tota l and free PSA [...] 15.8% Performed By: #### 5 8410-2 #### [facility] CLIA [id number] [address] [place] [address] [place] [facility] Prostate specific Ag [Mass/Vol] 0.74 ng/mL Normal <2.60 [facility] Comment on above: Order Comment: Speci men Type: BLOOD SPECIMEN Ordering Facility: [facility] Address: [address] [place] [address] Result Comment: Tota l PSA test methodology used is the Electrochemiluminescence Immunoassay by [employer]. Total PSA values by differing methodologies cannot be interchanged. Performed By: #### 5 8410-2 #### [facility] CLIA [id number] [address] [place] [address] [place] GGT SerPl-cCncon 01-19-2022 Gamma glutamyl transferase [Catalytic activity/Vol] 24 U/L Normal 10-70 [facility] Comment on above: Order Comment: Speci men Type: BLOOD SPECIMEN Ordering Facility: [facility] Address: [address] [place] [address] Performed By: #### 5 8410-2 #### [facility] [place] [id number] [address] [place] [address] [place] Gamma glutamyl transferase [Catalytic activity/Vol] 9 U/L Low 10-70 [facility] Comment on above: Order Comment: Speci men Type: BLOOD SPECIMENOrdering Facility: [facility] Address: [address] [place] [address] Performed By: #### 2 324-2 ####[facility] LABCLIA [id number] [place] [address] [place] MEDICAL EMERon 01-19-2022 MEDICAL KIYA HNO ID: [id number] Author: Liam Saldana APRN.PAYROLL SECRETARY Service: Critical Care Author Type: Nurse Practitioner [...] noted physicial (more content not included)... Normal [facility] Magnesium [facility] 01-19 Magnesium [Mass/Vol] 1.9 mg/dL Normal 1.7-2.3 [facility] Comment on above: Order Comment: Speci men Type: BLOOD SPECIMENOrdering Facility: [facility] Address: [address] [place] [address] Performed By: #### 1 9123-9, 62164-4 ####[facility] LABORATORYCLIA [id number] [address] OF [facility] NURSING PROGon 01-19-2022 NURSING PROG HNO ID: [id number] Author: Rebecca Goetz RN Service: Nursing Author Type: Registered Nurse Type: Nursing Progress Note Filed: 01/19/2022 4:04 AM Note Text: Post Fall Assessment José Manuel Ashton [id number] Witnessed: No How did fall occur: Pt [...] CT Name of LIP notified: Liam Saldana landcare officer Notify family as appropriate: Pt declined family notification Post fall interventions: Fall Huddle Conducted, Bed Alarm On, Frequent Observation, Patient/Family Education, Apply a Yellow Wrist Band, Apply [place] Risk Symbol to the Door, and My Safety Plan Updated This note was completed by:Rebecca Goetz [facility] THERAPY NTon 01-19-2022 THERAPY NT HNO ID: [id number] Author: Prasanth Jeronimo, PT Service: Physical Therapy Author Type: Physical Therapist Type: Therapy (PT/OT/Speech/Resp) Filed: 01/19/2022 3:22 PM Note Text: Physical Therapy Evaluation SERVICE DATE: 01/19/2022 SERVICE TIME: 1419 to 1450 ROOM: [place] [address] Recommended Discharge Disposition: Subacute/SNF Recommended Discharge Disposition [...] emergency department at the direction of his carpet weaver, Dr. Kennedy for psych eval Relevant Past [...] WW. Stairs Curb Step Car Transfer Blank cnuningham indicate activity not attempted Gait Deviations Left [...] will demonst (more content not included)... Normal [facility] URINALYSIS, REFLEX MICROSCOP ICon 01-19-2022 Bilirubin Ql (U) Negative Normal Negative [facility] Comment on above: Order Comment: Speci men Type: URINE SPECIMENOrdering Facility: [facility] Address: [address] [place] [address] Performed By: #### L [id number] ####[facility] LABORATORYCLIA [id number] [address] [place] [address] [place] Clarity (Unsp spec) Clear Normal Clear [facility] Comment on above: Order Comment: Speci men Type: URINE SPECIMENOrdering Facility: [facility] Address: [address] [place] [address] Performed By: #### L [id number] ####[facility] LABORATORYCLIA [id number] [address] [place] [address] [place] Color (U) Yellow Normal Yellow [facility] Comment on above: Order Comment: Speci men Type: URINE SPECIMENOrdering Facility: [facility] Address: [address] [place] [address] Performed By: #### L [id number] ####[facility] LABORATORYCLIA [id number] [address] [place] [address] [place] Epithelial cells LM.HPF (Urine sed) [#/Area] Few Normal [facility] Comment on above: Order Comment: Speci men Type: URINE SPECIMENOrdering Facility: [facility] Address: [address] [place] [address] Result Comment: Few Performed By: #### L [id number] ####[facility] LABORATORYCLIA [id number] [address] [place] [address] [place] Glucose Test strip (U) [Mass/Vol] 2+ Abnormal Negative [facility] Comment on above: Order Comment: Speci men Type: URINE SPECIMENOrdering Facility: [facility] Address: [address] [place], [place] [id number] Performed By: #### L [id number] ####[facility] LABORATORYCLIA [id number] [address] [place] [address] [place] Hemoglobin Ql (U) 1+ Abnormal Negative [facility] Comment on above: Order Comment: Speci men Type: URINE SPECIMENOrdering Facility: [facility] Address: [address] [place], [place] [id number] Performed By: #### L [id number] ####[facility] LABORATORYCLIA [id number] [address] [place], [place] [address] [place] [facility] Ketones Ql (U) Trace Abnormal Negative [facility] Comment on above: Order Comment: Speci men Type: URINE SPECIMENOrdering Facility: [facility] Address: [address] [place], [place] [id number] Performed By: #### L [id number] ####[facility] LABORATORYCLIA [id number] [address] [place], [place] [address] [place] [facility] Leukocyte esterase Test strip Ql (U) Negative Normal Negative [facility] Comment on above: Order Comment: Speci men Type: URINE SPECIMENOrdering Facility: [facility] Address: [address] [place], [place] [address] Performed By: #### L [id number] ####[facility] LABORATORYCLIA [id number] [address] [place], [place] [address] [place] Nitrite Ql (U) Negative Normal Negative [facility] Comment on above: Order Comment: Speci men Type: URINE SPECIMENOrdering Facility: [facility] Address: [address] [place], [place] [id number] Performed By: #### L [id number] ####[facility] LABORATORYCLIA [id number] [address] [place], [place] [address] [place] pH (U) 7.0 [pH] Normal 5.0-8.0 [facility] Comment on above: Order Comment: Speci men Type: URINE SPECIMENOrdering Facility: [facility] Address: [address] [place] [address] Performed By: #### L [id number] ####[facility] LABORATORYCLIA [id number] [address] [place] [address] [place] Protein (U) [Mass/Vol] Normal [facility] Comment on above: Order Comment: Speci men Type: URINE SPECIMENOrdering Facility: [facility] Address: [address] [place] [address] Result Comment: Visi ble blood causes falsely elevated results for analyte Protein. Due to this limitation, Protein will not be reported for patients whose urine contains visible blood. Performed By: #### L [id number] ####[facility] LABORATORYCLIA [id number] [place] [address] [place] RBC LM.HPF (Urine sed) [#/Area] 6-10 /HPF Abnormal 0-3 /HPF [facility] Comment on above: Order Comment: Speci men Type: URINE SPECIMENOrdering Facility: [facility] Address: [address] [place] [address] Performed By: #### L [id number] ####[facility] LABORATORYCLIA [id number] [place] [address] [place] Specific gravity (U) [Rel density] 1.020 Normal 1.005-1.030 [facility] Comment on above: Order Comment: Speci men Type: URINE SPECIMENOrdering Facility: [facility] Address: [address] [place] [address] Performed By: #### L [id number] ####[facility] LABORATORYCLIA [id number] [address] [place] Urobilinogen Ql (U) 0.2 EU/dL Normal 0.2-1.0 EU/dL [facility] Comment on above: Order Comment: Speci men Type: URINE SPECIMENOrdering Facility: [facility] Address: [address] [place] [address] Performed By: #### L [id number] ####[facility] LABORATORYCLIA [id number] [address] WBC LM.HPF (Urine sed) [#/Area] 0-5 /HPF Normal 0-5 /HPF [facility] Comment on above: Order Comment: Speci men Type: URINE SPECIMENOrdering Facility: [facility] Address: [address] [place] [address] Performed By: #### L [id number] ####[facility] LABORATORYCLIA [id number] [address] ALLIED HEALTHon 01-18-2022 ALLIED HEALTH HNO ID: [id number] Author: MARCOS Brush Service: Radiology Author Type: Product Safety Technical Assistant Type: Allied Health Filed: 01/18/2022 10:17 AM [...] MARCOS Brush January 18, 2022 10:[address] [facility] HNO ID: [id number] Author: MARCOS Brush Service: Radiology Author Type: Product Safety Technical Assistant Type: Allied Health Filed: 01/18/2022 9:07 AM Note Text: ORAL CONTRAST TAKEN TO 4D AND GIVEN TO PATIENTS NURSE JAYESH. 20ML OPTIRAY 240 AND 450ML WATER. Normal [facility] Basic metabolic 2000 panelon 01-18-2022 Anion gap [Moles/Vol] 10 mmol/L Normal - [facility] Comment on above: Order Comment: Speci men Type: BLOOD SPECIMEN Ordering Facility: [facility] Address: [address] [place] [address] Performed By: #### 5 8410-2 #### [facility] CLIA [id number] [facility] [place] [address] [place] Calcium [Mass/Vol] 8.9 mg/dL Normal 8.5-10.2 [facility] Comment on above: Order Comment: Speci men Type: BLOOD SPECIMEN Ordering Facility: [facility] Address: [address] [place] [address] Performed By: #### 5 8410-2 #### [facility] IA [id number] [address] [place] [address] [place] Chloride [Moles/Vol] 101 mmol/L Normal 97-105 [facility] Comment on above: Order Comment: Speci men Type: BLOOD SPECIMEN Ordering Facility: [facility] Address: [address] [place] [address] Performed By: #### 5 8410-2 #### [facility] CLIA [id number] [address] [place] [address] [place] CO2 [Moles/Vol] 26 mmol/L Normal 22-30 [facility] Comment on above: Order Comment: Speci men Type: BLOOD SPECIMEN [facility]ing Facility: [facility] Address: [address] [place] [address] Performed By: #### 5 8410-2 #### [facility] CLIA [id number] [address] [place], [place] [address] [place] Creatinine [Mass/Vol] 1.18 mg/dL Normal 0.73-1.22 [facility] Comment on above: Order Comment: Speci men Type: BLOOD SPECIMEN Ordering Facility: [facility] Address: [address] [place] [address] Performed By: #### 5 8410-2 #### [facility] CLIA [id number] [address] [place] [address] [place] ESTIMATED GLOMERULAR FILTRATION RATE 70 mL/min/1.73m??? Normal >=60 [facility] Comment on above: Order Comment: Luz clement Type: BLOOD SPECIMEN Ordering Facility: [facility] Address: [address] [place] [address] Result Comment: Breanne mated Glomerular Filtration Rate [...] GFR. Performed By: #### 5 8410-2 #### [facility] IA [id number] [address] [place] [address] [place] Glucose [Mass/Vol] 415 mg/dL High 74-99 [facility] Comment on above: Order Comment: Luz vaughan Type: BLOOD SPECIMEN Ordering Facility: [facility] Address: [address] [place] [address] Result Comment: The [place] [employer] (ADA) provides guidance for cutoff [...] Standards of Medical Care in Diabetes 2016, [place] [employer]. Diabetes Care. 2016.39(Suppl 1). Performed By: #### 5 8410-2 #### [facility] CLIA [id number] [address] [place] [id number] [place] Potassium [Moles/Vol] 4.7 mmol/L Normal 3.7-5.1 [facility] Comment on above: Order Comment: Speci men Type: BLOOD SPECIMEN [facility]ing Facility: [facility] Address: [address] [place] [address] Performed By: #### 5 8410-2 #### [facility] CLIA [id number] [facility] [place] [address] [place] Sodium [Moles/Vol] 137 mmol/L Normal 136-144 [facility] Comment on above: Order Comment: Speci men Type: BLOOD SPECIMEN Ordering Facility: [facility] Address: [address] [place] [address] Performed By: #### 5 8410-2 #### [facility] IA [id number] [address] [place] [address] [place] Urea nitrogen [Mass/Vol] 24 mg/dL Normal 9-24 [facility] Comment on above: Order Comment: Speci men Type: BLOOD SPECIMEN Ordering Facility: [facility] Address: [address] [place] [address] Performed By: #### 5 8410-2 #### [facility] IA [id number] [address] [place] [address] [place] CASE MGT INIT ASSESon 2021 CASE MGT INIT ASSES HNO ID: [id number] Author: OSCAR Bennett Service: Social Work Author Type: Electrical Maintenance Engineer Type: Care Mgt Initial Assessment Filed: 01/18/2022 [...] assessment" ADVANCE DIRECTIVES Current Advance Directive: None Web Operations Manager Attempted to Assist with AD Completion: [...] discharge within 30 days: No PATIENT SCREEN Patient/Bridge Ironworker Stated Goals: To have reduction in symptoms;To [...] Mostly I feel financially burdened by my pik-wg-kkxqnn expenses for my prescription medication:: 0 - [...] Health Diagnosis (more content not included)... Normal [facility] CBC panel Auto (Bld)on 01-18 Erythrocyte distribution width (RBC) [Ratio] 13.0 % Normal 11.5-15.0 [facility] Comment on above: Order Comment: Speci men Type: BLOOD SPECIMEN Ordering Facility: [facility] Address: [address] [place] [id number] Performed By: #### 5 8410-2 #### [facility] CLIA [id number] [facility] [address] ATTN JENNIFER [address] [place] Hematocrit (Bld) [Volume fraction] 41.5 % Normal 39.0-51.0 [facility] Comment on above: Order Comment: Speci men Type: BLOOD SPECIMEN Ordering Facility: [facility] Address: [address] [place], [place] [address] Performed By: #### 5 8410-2 #### [facility] CLIA [id number] [address] [place] [address] [place] Hemoglobin (Bld) [Mass/Vol] 13.9 g/dL Normal 13.0-17.0 [facility] Comment on above: Order Comment: Speci men Type: BLOOD SPECIMEN Ordering Facility: [facility] Address: [address] [place], [place] [address] Performed By: #### 5 8410-2 #### [facility] IA [id number] [address] [place] [address] [place] MCH (RBC) [Entitic mass] 28.8 pg Normal 26.0-34.0 [facility] Comment on above: Order Comment: Speci men Type: BLOOD SPECIMEN Ordering Facility: [facility] Address: [address] [place] [address] Performed By: #### 5 8410-2 #### [facility] IA [id number] [address] [place] [address] [place] MCHC (RBC) [Mass/Vol] 33.5 g/dL Normal 30.5-36.0 [facility] Comment on above: Order Comment: Speci men Type: BLOOD SPECIMEN Ordering Facility: [facility] Address: [address] [place], [place] [address] Performed By: #### 5 8410-2 #### [facility] IA [id number] [address] [place] [address] [place] MCV (RBC) [Entitic vol] 86.1 fL Normal 80.0-100.0 [facility] Comment on above: Order Comment: Speci men Type: BLOOD SPECIMEN Ordering Facility: [facility] Address: [address] [place], [place] [address] Performed By: #### 5 8410-2 #### [facility] CLIA [id number] [address] [place] [address] [place] Nucleated RBC (Bld) [#/Vol] 10*3/uL Normal <0.01 [facility] Comment on above: Order Comment: Speci men Type: BLOOD SPECIMEN Ordering Facility: [facility] Address: [address] [place], [place] [address] Performed By: #### 5 8410-2 #### [facility] CLIA [id number] [facility] [place] [address] [place] Platelet mean volume (Bld) [Entitic vol] 9.8 fL Normal 9.0-12.7 [facility] Comment on above: Order Comment: Speci men Type: BLOOD SPECIMEN Ordering Facility: [facility] Address: [address] [place], [place] [address] Performed By: #### 5 8410-2 #### [facility] [id number] [address] [place], [place] [address] [place] Platelets (Bld) [#/Vol] 258 10*3/uL Normal 150-400 [facility] Comment on above: Order Comment: Speci men Type: BLOOD SPECIMEN Ordering Facility: [facility] Address: [address] [place], [place] [address] Performed By: #### 5 8410-2 #### [facility] IA [id number] [address] [place], [place] [address] [place] RBC (Bld) [#/Vol] 4.82 10*6/uL Normal 4.20-6.00 [facility] Comment on above: Order Comment: Speci men Type: BLOOD SPECIMEN Ordering Facility: [facility] Address: [address] [place], [place] [address] Performed By: #### 5 8410-2 #### [facility] CLIA [id number] [address] [place], [place] [address], [place] [address] [facility] WBC (Bld) [#/Vol] 6.34 10*3/uL Normal 3.70-11.00 [facility] Comment on above: Order Comment: Speci men Type: BLOOD SPECIMEN Ordering Facility: [facility] Address: [address] [place] [address] Performed By: #### 5 8410-2 #### [facility] CLIA [id number] [address] [place] [address] [place] [id number] [facility] CONSULTon 01-18-2022 CONSULT HNO ID: [id number] Author: Rafal Carroll PA-C Service: Psychiatry Author Type: Physician Assortment Planner Type: Consults Filed: 01/19/2022 3:08 PM Note [...] to the ED as recommended by his carpet weaver for a psychiatric evaluation in the context of poor compliance to treatment. 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 Kennedy for "psych eval" who saw [...] Was prescribed Wellbutrin, but didn't take. Per [facility], his last psych visit was in 05/31/2021 [...] UTHC Preliminary positive (A) 01/17/2022 UETOH <11 01/17/ (more content not included)... [facility] CT ABD/PEL WO IVCONon 2021 CT [...] annulus. No pericardial effusion or pericardial thickening. Inspector Handbag Frames (topogram) images: No additional findings. IMPRESSION: No acute process identified involving the abdomen or pelvis. There are findings possibly related to constipation. Findings of remote granulomatous disease. Diffuse mural thickening of the bladder likely related to chronic bladder outlet obstruction. Additional findings noted above. Installer Soft Top: [facility]ENTER[facility]y Transcribe Date/Time: Jan 18 2022 11:14A Dictated by : PRASANTH DARNELL MD This examination was interpreted and the report reviewed and electronically signed by: PRASANTH DARNELL MD on Jan 18 2022 11:21AM EST [id number] [facility] ED NOTEon 01-18-2022 ED NOTE HNO ID: [id number] Author: Los Nguyen RN Service: ? Author Type: Registered Nurse Type: ED Notes Filed: 01/17/2022 11:22 PM Note Text: Report given to justin Fernandez ready to be transferred at this time. [facility] ED NOTE HNO ID: [id number] Author: Keirstin Nguyen, RN Service: ? Author Type: Registered Nurse Type: ED Notes Filed: 01/17/2022 11:14 PM Note Text: POC 254 Normal [facility] HISTORY PHYSICALon 2 HISTORY PHYSICAL HNO ID: [id number] Author: Kylah Orantes MD Service: ? Author Type: Physician Type: HANDP Filed: 02/06/2022 12:27 PM Note Text: [facility] JOSÉ MANUEL ASHTON : 1960 AGE: 61 SEX: M CSN: [id number] [facility] LOCATION: [facility] ATTENDING PHYSICIAN: Kylah Orantes M.D. [...] emergency department at the direction of his carpet weaver, Dr. Kennedy for "psych eval" who saw [...] quittin.8 Smokeless tobacco: Never Tobacco comments: Smokes [place] Vaping Use Vaping Use: Never used Substance [...] of Hyperplastic polyp, Internal Hemorrhoids EGD 07/24/2020 Wlil's Esophagus, Hyperplastic polyp in Duodenum EXCISION OF [...] ONCE Ravinder Rascon MD 999 mL/hr at 01/17/22 2310 1,000 mL at 01/17/22 2310 dextrose 40 % 15 g 15 g [...] 7.0 Alb (more content not included)... Normal [facility] CBC panel Auto (Bld)on 01-17 Erythrocyte distribution width (RBC) [Ratio] 12.9 % Normal 11.5-15.0 [facility] Comment on above: Order Comment: Speci men Type: BLOOD SPECIMEN Ordering Facility: [facility] Address: [address] [place] [address] Performed By: #### 5 8410-2 #### [facility] [place] [id number] [address] [place] [address] OF [facility] Hematocrit (Bld) [Volume fraction] 49.3 % Normal 39.0-51.0 [facility] Comment on above: Order Comment: Speci men Type: BLOOD SPECIMEN Ordering Facility: [facility] Address: [address] [place] [address] Performed By: #### 5 8410-2 #### [facility] CLIA [id number] [address] [place] [address] [place] Hemoglobin (Bld) [Mass/Vol] 16.1 g/dL Normal 13.0-17.0 [facility] Comment on above: Order Comment: Speci men Type: BLOOD SPECIMEN Ordering Facility: [facility] Address: [address] [place] [address] Performed By: #### 5 8410-2 #### [facility] CLIA [id number] [address] [place] [address] [facility] MCH (RBC) [Entitic mass] 28.1 pg Normal 26.0-34.0 [facility] Comment on above: Order Comment: Speci men Type: BLOOD SPECIMEN Ordering Facility: [facility] Address: [address] [place] [address] Performed By: #### 5 8410-2 #### [facility] IA [id number] [address] [place] [address] [place] MCHC (RBC) [Mass/Vol] 32.7 g/dL Normal 30.5-36.0 [facility] Comment on above: Order Comment: Speci men Type: BLOOD SPECIMEN Ordering Facility: [facility] Address: [address] [place] [address] Performed By: #### 5 8410-2 #### [facility] IA [id number] [address] [place] [address] [place] MCV (RBC) [Entitic vol] 86.0 fL Normal 80.0-100.0 [facility] Comment on above: Order Comment: Speci men Type: BLOOD SPECIMEN Ordering Facility: [facility] Address: [address] [place] [address] Performed By: #### 5 8410-2 #### [facility] IA [id number] [address] [place] [address] Nucleated RBC (Bld) [#/Vol] 10*3/uL Normal <0.01 [facility] Comment on above: Order Comment: Speci men Type: BLOOD SPECIMEN Ordering Facility: [facility] Address: [address] [place] [address] Performed By: #### 5 8410-2 #### [facility] CLIA [id number] [address] [place], [place] [address] [place] Platelet mean volume (Bld) [Entitic vol] 9.3 fL Normal 9.0-12.7 [facility] Comment on above: Order Comment: Speci men Type: BLOOD SPECIMEN Ordering Facility: [facility] Address: [address] [place], [place] [address] Performed By: #### 5 8410-2 #### [facility] CLIA [id number] [address] [place], [place] [address] [place] Platelets (Bld) [#/Vol] 283 10*3/uL Normal 150-400 [facility] Comment on above: Order Comment: Speci men Type: BLOOD SPECIMEN Ordering Facility: [facility] Address: [address] [place], [place] [address] Performed By: #### 5 8410-2 #### [facility] CLIA [id number] [address] [place], [place] [address] [place] RBC (Bld) [#/Vol] 5.73 10*6/uL Normal 4.20-6.00 [facility] Comment on above: Order Comment: Speci men Type: BLOOD SPECIMEN Ordering Facility: [facility] Address: [address] [place], [place] [address] Performed By: #### 5 8410-2 #### [facility] CLIA [id number] [address] [place], [place] [address] [place] WBC (Bld) [#/Vol] 6.69 10*3/uL Normal 3.70-11.00 [facility] Comment on above: Order Comment: Speci men Type: BLOOD SPECIMEN Ordering Facility: [facility] Address: [address] [place], [place] [address] Performed By: #### 5 8410-2 #### [facility] CLIA [id number] [address] [place] [address] [facility] CNOVon 01-17-2022 CNOV Office Visit (KIDLU ) -- JOSÉ MANUEL ASHTON ([id number]) 1960 [facility] Date Time Provider Department 01/17/22 3:00 PM BILLY MARTINEZ During your visit today, we recorded the following information about you: Pulse Blood pressure Weight Height 90/minute 165/85 115.7 kg 1.778 m Billy Cody MD 01/17/2022 3:36 PM Signed [facility] NEPHROLOGY CONSULT NOTE Patient Name: José Manuel [...] He has a psychiatrist at [facility] [place]. PAST MEDICAL HISTORY: PAST MEDICAL HISTORY [...] quittin.8 Smokeless tobacco: Never Tobacco comments: Smokes [place] Vaping Use Vaping Use: Never used Substance Use Topics Alcohol use: Not Currently Drug use: Yes Types: Marijuana Comment: daily Single. No children. He lives with his brother and sister. (He moved back from [place]). 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 He [...] tablets before breakfast and before supper Insulin Bee, Disposable, (COMFORT EZ P (more content not included)... Normal [facility] Comprehensive metabolic 2000 panelon 01-17-2022 Albumin [Mass/Vol] 4.0 g/dL Normal 3.9-4.9 [facility] Comment on above: Order Comment: Luz vaughan Type: BLOOD SPECIMEN Ordering Facility: [facility] Address: [address] [place] [address] Performed By: #### 5 8410-2 #### [facility] CLIA [id number] [address] [place] [address] STATES OF [facility] ALP [Catalytic activity/Vol] 127 U/L High 38-113 [facility] Comment on above: Order Comment: Speci clement Type: BLOOD SPECIMEN Ordering Facility: [facility] Address: [address] [place] [address] Performed By: #### 5 8410-2 #### [facility] CLIA [id number] [address] [place] [address] ALT [Catalytic activity/Vol] 15 U/L Normal 10-54 [facility] Comment on above: Order Comment: Speci men Type: BLOOD SPECIMEN Ordering Facility: [facility] Address: [address] [place], [place] [address] Performed By: #### 5 8410-2 #### [facility] CLIA [id number] [address] [place] [address] [place] Anion gap [Moles/Vol] 12 mmol/L Normal 9-18 [facility] Comment on above: Order Comment: Speci men Type: BLOOD SPECIMEN Ordering Facility: [facility] Address: [address] [place] [address] Performed By: #### 5 8410-2 #### [facility] CLIA [id number] [address] [place] [address] [place] AST [Catalytic activity/Vol] 14 U/L Normal 14-40 [facility] Comment on above: Order Comment: Speci men Type: BLOOD SPECIMEN Ordering Facility: [facility] Address: [address] [place] [address] Performed By: #### 5 8410-2 #### [facility] CLIA [id number] [facility] [place] [address] [place] Bilirubin [Mass/Vol] 0.3 mg/dL Normal 0.2-1.3 [facility] Comment on above: Order Comment: Speci men Type: BLOOD SPECIMEN Ordering Facility: [facility] Address: [address] [place] [address] Performed By: #### 5 8410-2 #### [facility] CLIA [id number] [address] [place], [place] [address] [place] Calcium [Mass/Vol] 10.2 mg/dL Normal 8.5-10.2 [facility] Comment on above: Order Comment: Speci men Type: BLOOD SPECIMEN Ordering Facility: [facility] Address: [address] [place], [place] [address] Performed By: #### 5 8410-2 #### [facility] CLIA [id number] [address] [place], [place] [address] [place] Chloride [Moles/Vol] 98 mmol/L Normal 97-105 [facility] Comment on above: Order Comment: Speci men Type: BLOOD SPECIMEN Ordering Facility: [facility] Address: [address] [place] [address] Performed By: #### 5 8410-2 #### [facility] CLIA [id number] [address] [place] [address] [place] CO2 [Moles/Vol] 27 mmol/L Normal 22-30 [facility] Comment on above: Order Comment: Speci men Type: BLOOD SPECIMEN Ordering Facility: [facility] Address: [address] [place] [address] Performed By: #### 5 8410-2 #### [facility] IA [id number] [address] [place] [address] [place] Creatinine [Mass/Vol] 1.22 mg/dL Normal 0.73-1.22 [facility] Comment on above: Order Comment: Speci men Type: BLOOD SPECIMEN Ordering Facility: [facility] Address: [address] [place] [address] Performed By: #### 5 8410-2 #### [facility] IA [id number] [address] [place] [address] ESTIMATED GLOMERULAR FILTRATION RATE 67 mL/min/1.73m??? Normal >=60 [facility] Comment on above: Order Comment: Speci men Type: BLOOD SPECIMEN Ordering Facility: [facility] Address: [address] [place] [address] Result Comment: Breanne mated Glomerular Filtration Rate [...] GFR. Performed By: #### 5 8410-2 #### [facility] CLIA [id number] [address] [place] [address] [place] Glucose [Mass/Vol] 312 mg/dL High 74-99 [facility] Comment on above: Order Comment: Luz vaughan Type: BLOOD SPECIMEN Ordering Facility: [facility] Address: [address] [place] [address] Result Comment: The [place] Diabetes Association (ADA) provides guidance for cutoff [...] Standards of Medical Care in Diabetes 2016, [place] [employer]. Diabetes Care. 2016.39(Suppl 1). Performed By: #### 5 8410-2 #### [facility] IA [id number] [address] [place] [address] [place] Potassium [Moles/Vol] 4.3 mmol/L Normal 3.7-5.1 [facility] Comment on above: Order Comment: Luz vaughan Type: BLOOD SPECIMEN Ordering Facility: [facility] Address: [address] [place] [address] Performed By: #### 5 8410-2 #### [facility] IA [id number] [address] [place], [place] [address] [place] Protein [Mass/Vol] 7.0 g/dL Normal 6.3-8.0 [facility] Comment on above: Order Comment: Luz vaughan Type: BLOOD SPECIMEN Ordering Facility: [facility] Address: [address] [place] [address] Performed By: #### 5 8410-2 #### [facility] CLIA [id number] [address] [place] [address] Sodium [Moles/Vol] 137 mmol/L Normal 136-144 [facility] Comment on above: Order Comment: Speci men Type: BLOOD SPECIMEN Ordering Facility: [facility] Address: [address] [place] [address] Performed By: #### 5 8410-2 #### [facility] IA [id number] [address] [place] [address] [place] Urea nitrogen [Mass/Vol] 26 mg/dL High 9-24 [facility] Comment on above: Order Comment: Speci men Type: BLOOD SPECIMEN Ordering Facility: [facility] Address: [address] [place] [address] Performed By: #### 5 8410-2 #### [facility] CLIA [id number] [address] [place] [address] OF [facility] ECG COMPLETEon 01-17-2022 ECG COMPLETE Ventricular Rate : 8 9 BPM Atrial Rate : 90 BPM P-R Interval : 155 ms QRS Duration : 111 ms Q-T Interval : 385 ms QTC Calculation(Bazett) : 469 ms Calculated P [place] : 35 degrees Calculated R [place] : 53 degrees Calculated T [place] : 52 degrees Sinus rhythm Probable left atrial enlargement Low voltage, precordial leads Probable anteroseptal infarct, old Abnormal ECG NO CHANGE FROM 04/21/21. OLMAN 01/17 Confirmed by MD RASCON BRYAN ([id number]), editorial project manager MOHINDER LINDER ([id number]) on 01/18/2022 11:00:19 AM NAME : JOSÉ MANUEL ASHTON PID : [id number] : 1960 Gender : Male Race : ORD : [id number] Procedure Date : Jan 17 2022 20:58:11 Edit Date : Jan 18 2022 11:00:23 Diagnosis: Sinus rhythm Probable left atrial enlargement Low voltage, precordial leads Probable anteroseptal infarct, old Abnormal ECG NO CHANGE FROM 04/21/21. OLMAN 01/17 Confirmed by MD RASCON BRYAN ([id number]), editorial project manager MOHINDER LINDER ([id number]) on 01/18/2022 11:00:19 AM Test Reason : Arrhythmia Location : 502 : LUED 12 Overread By : MD RASCON BRYAN Edited By : MOHINDER LINDER Referred By : , Acquired by : VAMSI, [facility] ED NOTEon 01-17-2022 ED NOTE HNO ID: [id number] Author: Regi Tavarez RN Service: Nursing Author Type: Registered Nurse Type: ED Notes Filed: 01/17/2022 6:34 PM Note Text: Pt sent by Dr Kennedy for psychiatric eval from appointment today Pt states he is having hard time understanding his medical dx and keeping up with his T2DM. 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 Kennedy for "psych eval" who saw [...] quittin.8 Smokeless tobacco: Never Tobacco comments: Smokes [place] Vaping Use Vaping Use: Never used Substance [...] not ill-appea (more content not included)... Normal [facility] Ethanol SerPl-mCncon 022 Ethanol [Mass/Vol] 29 mg/dL High <11 [facility] Comment on above: Order Comment: Speci men Type: BLOOD SPECIMEN Ordering Facility: [facility] Address: [address] [place] [address] Performed By: #### 5 8410-2 #### [facility] CLIA [id number] [address] [place] [address] [place] KETONES/ACETONE/BHBon 2021 Beta hydroxybutyrate [Moles/Vol] 1.55 mmol/L High <0.28 [facility] Comment on above: Order Comment: Speci men Type: BLOOD SPECIMEN Ordering Facility: [facility] Address: [address] [place] [address] Performed By: #### 5 8410-2 #### [facility] CLIA [id number] [address] [place] [address] [place] TOX SCREEN ROUT URon 022 Amphetamines Confirm (U) [Mass/Vol] Negative Normal Negative [facility] Comment on above: Order Comment: Speci men Type: BLOOD SPECIMEN Ordering Facility: [facility] Address: [address] [place] [address] Result Comment: Cuto ff threshold at 1000 ng/mL. Performed By: #### 5 8410-2 #### [facility] CLIA [id number] [facility] [place], [place] [address] [facility] [place] BARBITURATES, URINE Negative Normal Negative [facility] Comment on above: Order Comment: Speci men Type: BLOOD SPECIMEN Ordering Facility: [facility] Address: [address] [place] [address] Result Comment: Cuto ff threshold at 200 ng/mL. Performed By: #### 5 8410-2 #### [facility] CLIA [id number] [address] [place] [address] [place] BENZODIAZEPINES, UR Negative Normal Negative [facility] Comment on above: Order Comment: Speci men Type: BLOOD SPECIMEN Ordering Facility: [facility] Address: [address] [place] [address] Result Comment: Cuto ff threshold at 200 ng/mL. Performed By: #### 5 8410-2 #### [facility] CLIA [id number] [address] [place] [address] [place] CANNABINOIDS,URINE Positive Abnormal Negative [facility] Comment on above: Order Comment: Speci men Type: BLOOD SPECIMEN Ordering Facility: [facility] Address: [address] [place] [address] Result Comment: Cuto ff threshold at 50 ng/mL. Performed By: #### 5 8410-2 #### [facility] CLIA [id number] [address] [place], [place] [address] [place] Cocaine Ql (U) Negative Normal Negative [facility] Comment on above: Order Comment: Speci men Type: BLOOD SPECIMEN Ordering Facility: [facility] Address: [address] [place] [address] Result Comment: Cuto ff threshold at 300 ng/mL. Performed By: #### 5 8410-2 #### [facility] CLIA [id number] [facility]0 [place] [id number] [place] Ethanol (U) [Mass/Vol] <11 Normal <11 [facility] Comment on above: Order Comment: Speci men Type: BLOOD SPECIMEN Ordering Facility: [facility] Address: [address] [place] [address] Performed By: #### 5 8410-2 #### [facility] CLIA [id number] [address] [place] [address] [place] Opiates Screen Ql (U) Negative Normal Negative [facility] Comment on above: Order Comment: Speci men Type: BLOOD SPECIMEN Ordering Facility: [facility] Address: [address] [place] [address] Result Comment: Cuto ff threshold at 300 ng/mL. Performed By: #### 5 8410-2 #### [facility] CLIA [id number] [address] [place] [address] oxyCODONE cutoff Screen (U) [Mass/Vol] Negative Normal Negative [facility] Comment on above: Order Comment: Speci men Type: BLOOD SPECIMEN Ordering Facility: [facility] Address: [address] [place] [address] Result Comment: Cuto ff threshold at 100 ng/mL. Performed By: #### 5 8410-2 #### [facility] CLIA [id number] [address] [place] [address] Phencyclidine Ql (U) Negative Normal Negative [facility] Comment on above: Order Comment: Speci men Type: BLOOD SPECIMEN Ordering Facility: [facility] Address: [address] [place] [address] Result Comment: Cuto ff threshold at 25 ng/mL. Performed By: #### 5 8410-2 #### [facility] CLIA [id number] [address] [place] [address] [place] TROPONIN Ton 01-17-2022 Troponin T.cardiac [Mass/Vol] 0.011 ug/L Normal 0.000-0.029 [facility] Comment on above: Order Comment: Speci men Type: BLOOD SPECIMEN Ordering Facility: [facility] Address: [address] [place] [address] Performed By: #### T NT #### [facility] CLIA [id number] [address] [place] TSH SerPl-aCncon 01-17-2022 TSH Qn 1.870 m[IU]/L Normal 0.270-4.200 [facility] Comment on above: Order Comment: Speci men Type: BLOOD SPECIMEN Ordering Facility: [facility] Address: [address] [place] [address] Performed By: #### 5 8410-2 #### [facility] IA [id number] [address] [place] [address] Urinalysis complete panel (U )on 01-17-2022 Bacteria LM.HPF (Urine sed) [#/Area] Few Abnormal None Seen [facility] Comment on above: Order Comment: Speci men Type: BLOOD SPECIMEN Ordering Facility: [facility] Address: [address] [place] [address] Performed By: #### 5 8410-2 #### [facility] IA [id number] [address] [place] [address] Bilirubin Ql (U) Negative Normal Negative [facility] Comment on above: Order Comment: Speci men Type: BLOOD SPECIMEN Ordering Facility: [facility] Address: [address] [place] [address] Performed By: #### 5 8410-2 #### [facility] CLIA [id number] [address] [place] Clarity (Unsp spec) Clear Normal [facility] Comment on above: Order Comment: Speci men Type: BLOOD SPECIMEN Ordering Facility: [facility] Address: [address] [place] [address] Performed By: #### 5 8410-2 #### [facility] CLIA [id number] [address] [place] [address] Color (U) Yellow Normal Yellow [facility] Comment on above: Order Comment: Speci men Type: BLOOD SPECIMEN Ordering Facility: [facility] Address: [address] [place] [address] Performed By: #### 5 8410-2 #### [facility] CLIA [id number] [address] [place] Epithelial cells LM.HPF (Urine sed) [#/Area] Few Normal [facility] Comment on above: Order Comment: Speci men Type: BLOOD SPECIMEN Ordering Facility: [facility] Address: [address] [place] [address] Result Comment: Few Performed By: #### 5 8410-2 #### [facility] CLIA [id number] [address] Glucose Test strip (U) [Mass/Vol] 3+ Abnormal Negative [facility] Comment on above: Order Comment: Speci men Type: BLOOD SPECIMEN Ordering Facility: [facility] Address: [address] [place] [address] Performed By: #### 5 8410-2 #### [facility] CLIA [id number] [address] [place], [place] [id number] [place] Hemoglobin Ql (U) 2+ Abnormal Negative [facility] Comment on above: Order Comment: Speci men Type: BLOOD SPECIMEN Ordering Facility: [facility] Address: [address] [place] [address] Performed By: #### 5 8410-2 #### [facility] CLIA [id number] [address] [place] [id number] [place] Hyaline casts (Urine sed) [#/Area] 1-3 /LPF Abnormal 0 /LPF [facility] Comment on above: Order Comment: Speci men Type: BLOOD SPECIMEN Ordering Facility: [facility] Address: [address] [place] [address] Performed By: #### 5 8410-2 #### [facility] CLIA [id number] [address] [place] [address] [facility] Ketones Ql (U) 1+ Abnormal Negative [facility] Comment on above: Order Comment: Speci men Type: BLOOD SPECIMEN Ordering Facility: [facility] Address: [address] [place] [address] Performed By: #### 5 8410-2 #### [facility] CLIA [id number] [address] [place] [address] [place] Leukocyte esterase Test strip Ql (U) Negative Normal Negative [facility] Comment on above: Order Comment: Speci men Type: BLOOD SPECIMEN Ordering Facility: [facility] Address: [address] [place] [address] Performed By: #### 5 8410-2 #### [facility] CLIA [id number] [address] [place] [address] [place] Nitrite Ql (U) Negative Normal Negative [facility] Comment on above: Order Comment: Speci men Type: BLOOD SPECIMEN Ordering Facility: [facility] Address: [address] [place] [address] Performed By: #### 5 8410-2 #### [facility] CLIA [id number] [address] [place] [address] [place] pH (U) 6.0 [pH] Normal 5.0-8.0 [facility] Comment on above: Order Comment: Speci men Type: BLOOD SPECIMEN Ordering Facility: [facility] Address: [address] [place] [address] Performed By: #### 5 8410-2 #### [facility] CLIA [id number] [address] [place] [address] [place] Protein (U) [Mass/Vol] Normal [facility] Comment on above: Order Comment: Speci men Type: BLOOD SPECIMEN Ordering Facility: [facility] Address: [address] [place] [address] Result Comment: Visi ble blood causes falsely elevated results for analyte Protein. Due to this limitation, Protein will not be reported for patients whose urine contains visible blood. Performed By: #### 5 8410-2 #### [facility] CLIA [id number] [address] [place], [place] [id number] [place] RBC LM.HPF (Urine sed) [#/Area] 3-5 /HPF Abnormal 0-3 /HPF [facility] Comment on above: Order Comment: Speci men Type: BLOOD SPECIMEN Ordering Facility: [facility] Address: [address] [place] [address] Performed By: #### 5 8410-2 #### [facility] [place] [id number] [address] [place] [address] [place] Specific gravity (U) [Rel density] >=1.030 High 1.005-1.030 [facility] Comment on above: Order Comment: Speci men Type: BLOOD SPECIMEN Ordering Facility: [facility] Address: [address] [place] [address] Performed By: #### 5 8410-2 #### [facility] [place] [id number] [address] [place], [place] [id number] [place] Urobilinogen Ql (U) 0.2 EU/dL Normal 0.2-1.0 EU/dL [facility] Comment on above: Order Comment: Speci men Type: BLOOD SPECIMEN Ordering Facility: [facility] Address: [address] [place] [address] Performed By: #### 5 8410-2 #### [facility] [place] [id number] [address] [place] [address] [facility] WBC LM.HPF (Urine sed) [#/Area] 0-5 /HPF Normal 0-5 /HPF [facility] Comment on above: Order Comment: Speci men Type: BLOOD SPECIMEN Ordering Facility: [facility] Address: [address] [place] [address] [place] [address] Performed By: #### 5 8410-2 #### [facility] CLIA [id number] [address] [place] [address] [place] XR CHEST 1V FRONTAL PORTon [...] exam with no evidence of acute disease. Installer Soft Top: PSCB Transcribe Date/Time: Jan 17 2022 8:15P Dictated by : LAZARO SENA MD This examination was interpreted and the report reviewed and electronically signed by: LAZARO SENA MD on Jan 17 2022 8:15PM EST [id number] Normal [facility] GLUCOSE, BLOOD (POC)on 01-03 Glucose [Mass/Vol] 290 mg/dL Abnormal 74 - 99 mg/dL [facility] HEMOGLOBIN A1C (POC)on 01-03 HbA1c (Bld) [Mass fraction] 13.4 % Abnormal 4.2 - 5.6 % [facility] GLUCOSE, BLOOD (POC)on 11-05 Glucose [Mass/Vol] 330 mg/dL Abnormal 74 - 99 mg/dL [facility] HEMOGLOBIN A1C (POC)on 11-05 HbA1c (Bld) [Mass fraction] 11.3 % Abnormal 4.2 - 5.6 % [facility] GLUCOSE, BLOOD (POC)on 10-05 Glucose [Mass/Vol] 184 mg/dL Abnormal 74 - 99 mg/dL [facility] HEMOGLOBIN A1C (POC)on 10-05 HbA1c (Bld) [Mass fraction] 11.5 % Abnormal 4.2 - 5.6 % [facility] GLUCOSE, BLOOD (POC)on 09-20 Glucose [Mass/Vol] 197 mg/dL Abnormal 74 - 99 mg/dL [facility] HEMOGLOBIN A1C (POC)on 09-20 HbA1c (Bld) [Mass fraction] 12.5 % Abnormal 4.2 - 5.6 % [facility] GLUCOSE, BLOOD (POC)on 08-11 Glucose [Mass/Vol] 434 mg/dL Abnormal 74 - 99 mg/dL [facility] HEMOGLOBIN A1C (POC)on 08-11 HbA1c (Bld) [Mass fraction] 12.7 % Abnormal 4.2 - 5.6 % [facility] MRI PELVIS WO/W IVCONon 09-02 [facility] CT ABD/PEL W IVCONon 021 CT ABD/PEL W IVCON Final Report DATE OF EXAM: Jun 26 2020 3:38PM [facility] 0530 - CT ABD/PEL W IVCON / [...] L5-S1. Lower thorax: No significant additional findings. Inspector Handbag Frames (topogram) images: No significant additional findings. IMPRESSION: [...] be communicated with the ordering provider via Sharelook staff message or phone message by [employer] within 2 business days of report finalization. Algorithms for management of incidental imaging findings can be found on the [facility] Intranet Sharepoint site at: [email or web address].[email or web address]/documen [email or web address]/[email or web address] [email or web address]%20Findi ngs%20at%20Imaging/Forms/A llItems.[email or web address] Installer Soft Top: ROBERTA Transcribe Date/Time: Jun 29 2020 1:50P Dictated by : LUIS BADILLO MD This examination was interpreted and the report reviewed and electronically signed by: LUIS BADILLO MD on Jun 29 2020 2:03PM EST ACTIONABLE Normal [facility] Otheron 05-14-2020 [facility] XR SHLDR >/=3V AP/KRISHNA AP/OTH R LTon [...] IMPRESSION: Mild osteoarthritis of the acromioclavicular joint. Installer Soft Top: [facility] Transcribe Date/Time: May 14 2020 3:04P Dictated by : AJ SUN MD This examination was interpreted and the report reviewed and electronically signed by: AJ SUN MD on May 14 2020 3:05PM EST Normal [facility] Metabolic Panelon 04-27-2020 Glucose [Mass/Vol] 230 mg/dL Abnormal 65 - 100 mg/dL [facility] Otheron 04-27-2020 Quality Check Yes [facility] Otheron 02-17-2020 [facility] XR LUMBAR 3V AP/LAT/L5-S1on 02-17-2020 XR LUMBAR [...] osseous abnormalities. 2. Moderate multilevel degenerative changes. Installer Soft Top: PSCB Transcribe Date/Time: Feb 17 2020 2:33P Dictated by : AKIN DUDLEY MD This examination was interpreted and the report reviewed and electronically signed by: AKIN DUDLEY MD on Feb 17 2020 2:36PM EST Normal [facility] No Panel Information [facility] Vital Signs Date Time Vital Sign Value Performing Clinician Faci lity 11-29-2024 13:46-0400 Body temperature 97.81 [degF] Omid Adames MD Work Phone: [facility] 11-29-2024 13:46-0400 Diastolic blood pressure 83 mm[Hg] Omid Adames MD Work Phone: [facility] 11-29-2024 13:46-0400 Heart rate 85 /min Omid Adames MD Work Phone: [facility] 11-29-2024 13:46-0400 Respiratory rate 17 /min Omid Adames MD Work Phone: [facility] 11-29-2024 13:46-0400 Systolic blood pressure 153 mm[Hg] Omid Adames MD Work Phone: [facility] 11-29-2024 03:00-0400 Body mass index (BMI) [Ratio] 38.02 kg/m2 Omid Adames MD Work Phone: [facility] 11-29-2024 03:00-0400 Body weight 120.2 kg Omid Adames MD Work Phone: [facility] 11-28-2024 20:22-0400 SaO2% (BldA) [Mass fraction] 91 % Omid Adames MD Work Phone: [facility] 11-28-2024 13:58-0400 Body height 177.8 cm Omid Adames MD Work Phone: [facility] 07-10-2024 14:11-0400 Body height 172.7 cm Jose Dudley MD Work Phone: [facility] 07-10-2024 14:11-0400 Body mass index (BMI) [Ratio] 38.62 kg/m2 Jose Dudley MD Work Phone: [facility] 07-10-2024 14:11-0400 Body temperature 97.9 [degF] Jose Dudley MD Work Phone: [facility] 07-10-2024 14:11-0400 Body weight 115.21 kg Jose Dudley MD Work Phone: [facility] 07-10-2024 14:11-0400 Diastolic blood pressure 91 mm[Hg] Jose Dudley MD Work Phone: [facility] 07-10-2024 14:11-0400 Heart rate 84 /min Jose Dudley MD Work Phone: [facility] 07-10-2024 14:11-0400 SaO2% (BldA) [Mass fraction] 98 % Jose Dudley MD Work Phone: [facility] 07-10-2024 14:11-0400 Systolic blood pressure 168 mm[Hg] Jose Dudley MD Work Phone: [facility] 05-13-2024 12:02-0500 Diastolic blood pressure 91 mm[Hg] Artem Ahmadi MD Work Phone: [facility] 05-13-2024 12:02-0500 Heart rate 76 /min Artem Ahmadi MD Work Phone: [facility] 05-13-2024 12:02-0500 Respiratory rate 14 /min Artem Ahmadi MD Work Phone: [facility] 05-13-2024 12:02-0500 SaO2% (BldA) [Mass fraction] 97 % Artem Ahmadi MD Work Phone: [facility] 05-13-2024 12:02-0500 Systolic blood pressure 179 mm[Hg] Artem Ahmadi MD Work Phone: [facility] 05-13-2024 11:46-0500 Body temperature 97.39 [degF] Artem Ahmadi MD Work Phone: [facility] 01-24-2024 13:45-0400 Body height 172.7 cm Jose Dudley MD Work Phone: [facility] 01-24-2024 13:45-0400 Body mass index (BMI) [Ratio] 35.58 kg/m2 Jose Dudley MD Work Phone: [facility] 01-24-2024 13:45-0400 Body weight 106.14 kg Jose Dudley MD Work Phone: [facility] 01-24-2024 13:45-0400 Diastolic blood pressure 98 mm[Hg] Jose Dudley MD Work Phone: [facility] 01-24-2024 13:45-0400 Heart rate 75 /min Jose Dudley MD Work Phone: [facility] 01-24-2024 13:45-0400 Systolic blood pressure 192 mm[Hg] Jose Dudley MD Work Phone: [facility] 11-20-2023 10:53-0400 Diastolic blood pressure 74 mm[Hg] Noé Rufener PT Work Phone: [facility] 11-20-2023 10:53-0400 Heart rate 80 /min Noé Rufener PT Work Phone: [facility] 11-20-2023 10:53-0400 Respiratory rate 16 /min Noé Rufener PT Work Phone: [facility] 11-20-2023 10:53-0400 SaO2% (BldA) [Mass fraction] 98 % Noé Rufener PT Work Phone: [facility] 11-20-2023 10:53-0400 Systolic blood pressure 134 mm[Hg] Noé Rufener PT Work Phone: [facility] 11-20-2023 10:22-0400 Body temperature 98.4 [degF] Noé Rufener PT Work Phone: [facility] 11-16-2023 14:25-0400 Body temperature 98.2 [degF] Eda Bright RN Work Phone: [facility] 11-16-2023 14:25-0400 Diastolic blood pressure 80 mm[Hg] Eda Bright RN Work Phone: [facility] 11-16-2023 14:25-0400 Heart rate 80 /min Eda Bright RN Work Phone: [facility] 11-16-2023 14:25-0400 Respiratory rate 18 /min Eda Bright RN Work Phone: [facility] 11-16-2023 14:25-0400 SaO2% (BldA) [Mass fraction] 97 % Eda Bright RN Work Phone: [facility] 11-16-2023 14:25-0400 Systolic blood pressure 136 mm[Hg] Eda Bright RN Work Phone: [facility] 11-14-2023 10:30-0400 Diastolic blood pressure 74 mm[Hg] Prinston Hairston INSOLVENCY CONSULTANT Work Phone: [facility] Comment on above: exertion 11-14-2023 10:30-0400 Heart rate 83 /min Prinston Hairston INSOLVENCY CONSULTANT Work Phone: [facility] 11-14-2023 10:30-0400 Respiratory rate 19 /min Prinston Hairston INSOLVENCY CONSULTANT Work Phone: [facility] 11-14-2023 10:30-0400 SaO2% (BldA) [Mass fraction] 97 % Prinston Hairston INSOLVENCY CONSULTANT Work Phone: [facility] 11-14-2023 10:30-0400 Systolic blood pressure 140 mm[Hg] Prinston Hairston INSOLVENCY CONSULTANT Work Phone: [facility] Comment on above: exertion 11-14-2023 09:57-0400 Body temperature 97.9 [degF] Prinston Hairston INSOLVENCY CONSULTANT Work Phone: [facility] 11-13-2023 09:22-0400 Body temperature 97.9 [degF] Keyla Fernanda OT/L Work Phone: [facility] 11-13-2023 09:22-0400 Diastolic blood pressure 82 mm[Hg] Keyla Fernanda OT/L Work Phone: [facility] 11-13-2023 09:22-0400 Heart rate 79 /min Keyla Fernanda OT/L Work Phone: [facility] 11-13-2023 09:22-0400 Respiratory rate 18 /min Keyla Fernanda OT/L Work Phone: [facility] 11-13-2023 09:22-0400 SaO2% (BldA) [Mass fraction] 98 % Keyla Fernanda OT/L Work Phone: [facility] 11-13-2023 09:22-0400 Systolic blood pressure 140 mm[Hg] Keyla Fernanda OT/L Work Phone: [facility] 11-10-2023 15:55-0400 Body temperature 98.1 [degF] Eda Bright RN Work Phone: [facility] 11-10-2023 15:55-0400 Diastolic blood pressure 78 mm[Hg] Eda Bright RN Work Phone: [facility] 11-10-2023 15:55-0400 Heart rate 80 /min Eda Bright RN Work Phone: [facility] 11-10-2023 15:55-0400 Respiratory rate 20 /min Eda Bright RN Work Phone: [facility] 11-10-2023 15:55-0400 SaO2% (BldA) [Mass fraction] 98 % Eda Bright RN Work Phone: [facility] 11-10-2023 15:55-0400 Systolic blood pressure 136 mm[Hg] Eda Bright RN Work Phone: [facility] 11-09-2023 09:09-0400 Diastolic blood pressure 84 mm[Hg] Prinston Hairston INSOLVENCY CONSULTANT Work Phone: [facility] Comment on above: exertion 11-09-2023 09:09-0400 Heart rate 83 /min Prinston Hairston INSOLVENCY CONSULTANT Work Phone: [facility] 11-09-2023 09:09-0400 Respiratory rate 16 /min Prinston Hairston INSOLVENCY CONSULTANT Work Phone: [facility] 11-09-2023 09:09-0400 SaO2% (BldA) [Mass fraction] 98 % Prinston Hairston INSOLVENCY CONSULTANT Work Phone: [facility] 11-09-2023 09:09-0400 Systolic blood pressure 132 mm[Hg] Prinston Hairston INSOLVENCY CONSULTANT Work Phone: [facility] Comment on above: exertion 11-09-2023 08:46-0400 Body temperature 98.01 [degF] Prinston Hairston INSOLVENCY CONSULTANT Work Phone: [facility] 11-07-2023 14:46-0400 Diastolic blood pressure 76 mm[Hg] Prinston Hairston INSOLVENCY CONSULTANT Work Phone: [facility] Comment on above: exertion 11-07-2023 14:46-0400 Heart rate 84 /min Prinston Ahirston INSOLVENCY CONSULTANT Work Phone: [facility] 11-07-2023 14:46-0400 Respiratory rate 18 /min Prinston Hairston INSOLVENCY CONSULTANT Work Phone: [facility] 11-07-2023 14:46-0400 SaO2% (BldA) [Mass fraction] 98 % Prinston Hairston INSOLVENCY CONSULTANT Work Phone: [facility] 11-07-2023 14:46-0400 Systolic blood pressure 140 mm[Hg] Prinston Hairston INSOLVENCY CONSULTANT Work Phone: [facility] Comment on above: exertion 11-07-2023 14:15-0400 Body temperature 98.49 [degF] Prinston Hairston INSOLVENCY CONSULTANT Work Phone: [facility] 11-06-2023 09:10-0400 Body temperature 98.2 [degF] Keyla Fernanda OT/L Work Phone: [facility] 11-06-2023 09:10-0400 Diastolic blood pressure 70 mm[Hg] Keyla Fernanda OT/L Work Phone: [facility] 11-06-2023 09:10-0400 Heart rate 77 /min Keyla Fernanda OT/L Work Phone: [facility] 11-06-2023 09:10-0400 Respiratory rate 18 /min Keyla Fernanda OT/L Work Phone: [facility] 11-06-2023 09:10-0400 SaO2% (BldA) [Mass fraction] 97 % Keyla Fernanda OT/L Work Phone: [facility] 11-06-2023 09:10-0400 Systolic blood pressure 128 mm[Hg] Keyla Fernanda OT/L Work Phone: [facility] 11-03-2023 15:53-0400 Body temperature 97.39 [degF] Eda Bright RN Work Phone: [facility] 11-03-2023 15:53-0400 Diastolic blood pressure 78 mm[Hg] Eda Bright RN Work Phone: [facility] 11-03-2023 15:53-0400 Heart rate 68 /min Eda Bright RN Work Phone: [facility] 11-03-2023 15:53-0400 Respiratory rate 20 /min Eda Bright RN Work Phone: [facility] 11-03-2023 15:53-0400 SaO2% (BldA) [Mass fraction] 98 % Eda Bright RN Work Phone: [facility] 11-03-2023 15:53-0400 Systolic blood pressure 138 mm[Hg] Eda Bright RN Work Phone: [facility] 11-02-2023 15:42-0400 Diastolic blood pressure 76 mm[Hg] Renea Hairston PTA Work Phone: [facility] 11-02-2023 15:42-0400 Heart rate 70 /min Renea Hairston INSOLVENCY CONSULTANT Work Phone: [facility] 11-02-2023 15:42-0400 Respiratory rate 16 /min Renea Hairston INSOLVENCY CONSULTANT Work Phone: [facility] 11-02-2023 15:42-0400 SaO2% (BldA) [Mass fraction] 98 % Renea Hairston INSOLVENCY CONSULTANT Work Phone: [facility] 11-02-2023 15:42-0400 Systolic blood pressure 136 mm[Hg] Renea Hairston INSOLVENCY CONSULTANT Work Phone: [facility] 11-02-2023 15:15-0400 Body temperature 97.7 [degF] Renea Hairston INSOLVENCY CONSULTANT Work Phone: [facility] 10-31-2023 15:25-0400 Body temperature 97.39 [degF] Eda Bright RN Work Phone: [facility] 10-31-2023 15:25-0400 Diastolic blood pressure 78 mm[Hg] Eda Bright RN Work Phone: [facility] 10-31-2023 15:25-0400 Heart rate 76 /min Eda Bright RN Work Phone: [facility] 10-31-2023 15:25-0400 Respiratory rate 18 /min Eda Bright RN Work Phone: [facility] 10-31-2023 15:25-0400 SaO2% (BldA) [Mass fraction] 98 % Eda Bright RN Work Phone: [facility] 10-31-2023 15:25-0400 Systolic blood pressure 144 mm[Hg] Eda Bright RN Work Phone: [facility] 10-30-2023 09:20-0400 Body temperature 98.4 [degF] Keyla Fernanda OT/L Work Phone: [facility] 10-30-2023 09:20-0400 Diastolic blood pressure 78 mm[Hg] Keyla Fernanda OT/L Work Phone: [facility] 10-30-2023 09:20-0400 Heart rate 76 /min Keyla Fernanda OT/L Work Phone: [facility] 10-30-2023 09:20-0400 Respiratory rate 18 /min Keyla Fernanda OT/L Work Phone: [facility] 10-30-2023 09:20-0400 SaO2% (BldA) [Mass fraction] 97 % Keyla Fernanda OT/L Work Phone: [facility] 10-30-2023 09:20-0400 Systolic blood pressure 132 mm[Hg] Keyla Fernanda OT/L Work Phone: [facility] 10-28-2023 12:58-0400 Diastolic blood pressure 79 mm[Hg] Zohaib Giffels PT Work Phone: [facility] 10-28-2023 12:58-0400 Heart rate 80 /min Zohaib Giffels PT Work Phone: [facility] 10-28-2023 12:58-0400 Respiratory rate 18 /min Zohaib Giffels PT Work Phone: [facility] 10-28-2023 12:58-0400 SaO2% (BldA) [Mass fraction] 98 % Zohaib Giffels PT Work Phone: [facility] 10-28-2023 12:58-0400 Systolic blood pressure 141 mm[Hg] Zohaib Giffels PT Work Phone: [facility] 10-28-2023 12:33-0400 Body temperature 98.29 [degF] Zohaib Giffels PT Work Phone: [facility] 10-27-2023 10:17-0400 Body temperature 98.4 [degF] Keyla Fernanda OT/L Work Phone: [facility] 10-27-2023 10:17-0400 Diastolic blood pressure 64 mm[Hg] Keyla Fernanda OT/L Work Phone: [facility] 10-27-2023 10:17-0400 Heart rate 83 /min Keyla Fernanda OT/L Work Phone: [facility] 10-27-2023 10:17-0400 Respiratory rate 18 /min Keyla Fernanda OT/L Work Phone: [facility] 10-27-2023 10:17-0400 SaO2% (BldA) [Mass fraction] 99 % Keyla Fernanda OT/L Work Phone: [facility] 10-27-2023 10:17-0400 Systolic blood pressure 148 mm[Hg] Keyla Fernanda OT/L Work Phone: [facility] 10-26-2023 09:59-0400 Body temperature 98.01 [degF] Eda Bright RN Work Phone: [facility] 10-26-2023 09:59-0400 Diastolic blood pressure 74 mm[Hg] Eda Bright RN Work Phone: [facility] 10-26-2023 09:59-0400 Heart rate 76 /min Eda Bright RN Work Phone: [facility] 10-26-2023 09:59-0400 Respiratory rate 18 /min Eda Bright RN Work Phone: [facility] 10-26-2023 09:59-0400 SaO2% (BldA) [Mass fraction] 98 % Eda Bright RN Work Phone: [facility] 10-26-2023 09:59-0400 Systolic blood pressure 136 mm[Hg] Eda Bright RN Work Phone: [facility] 10-22-2023 11:58-0400 Body height 172.7 cm Nguyen Whitaker RN Work Phone: [facility] 10-22-2023 11:58-0400 Body mass index (BMI) [Ratio] 37.89 kg/m2 Nguyenleon Whitaker RN Work Phone: [facility] 10-22-2023 11:58-0400 Body temperature 97.2 [degF] Nguyenleon Whitaker RN Work Phone: [facility] 10-22-2023 11:58-0400 Body weight 113.04 kg Nguyen Whitaker RN Work Phone: [facility] 10-22-2023 11:58-0400 Diastolic blood pressure 86 mm[Hg] Nguyenleon Whitaker RN Work Phone: [facility] 10-22-2023 11:58-0400 Heart rate 84 /min Nguyenleon Whitaker RN Work Phone: [facility] 10-22-2023 11:58-0400 Respiratory rate 16 /min Nguyenleon Whitaker RN Work Phone: [facility] 10-22-2023 11:58-0400 SaO2% (BldA) [Mass fraction] 98 % Nguyenleon Whitaker RN Work Phone: [facility] 10-22-2023 11:58-0400 Systolic blood pressure 144 mm[Hg] Nguyenleon Whitaker RN Work Phone: [facility] 07-12-2023 14:16-0400 Body height 177.8 cm Noé Kennedy MD Work Phone: [facility] 07-12-2023 14:16-0400 Body weight 108.86 kg Noé Kennedy MD Work Phone: [facility] 05-23-2023 11:08-0500 Body height 177.8 cm Mónica Peterson MD Work Phone: [facility] 05-23-2023 11:08-0500 Body weight 109.2 kg Mónica Peterson MD Work Phone: [facility] 05-23-2023 11:08-0500 Diastolic blood pressure 109 mm[Hg] Mónica Peterson MD Work Phone: [facility] 05-23-2023 11:08-0500 Heart rate 97 /min Mónica Peterson MD Work Phone: [facility] 05-23-2023 11:08-0500 Respiratory rate 16 /min Mónica Peterson MD Work Phone: [facility] 05-23-2023 11:08-0500 SaO2% (BldA) [Mass fraction] 99 % Mónica Peterson MD Work Phone: [facility] 05-23-2023 11:08-0500 Systolic blood pressure 195 mm[Hg] Mónica Peterson MD Work Phone: [facility] 01-23-2023 14:18-0400 Body height 177.8 cm Mark Godinez MD Work Phone: [facility] 01-23-2023 14:18-0400 Body weight 113.85 kg Mark Godinez MD Work Phone: [facility] 01-23-2023 14:18-0400 Respiratory rate 18 /min Mark Godinez MD Work Phone: [facility] 12-23-2022 15:46-0400 Body height 177.8 cm Belgica Vega DO Work Phone: [facility] 12-23-2022 15:46-0400 Body weight 114.76 kg Belgica Vega DO Work Phone: [facility] 12-23-2022 15:46-0400 Diastolic blood pressure 91 mm[Hg] Belgica Vega DO Work Phone: [facility] 12-23-2022 15:46-0400 Heart rate 91 /min Belgica Vega DO Work Phone: [facility] 12-23-2022 15:46-0400 Systolic blood pressure 153 mm[Hg] Belgica Vega DO Work Phone: [facility] 11-04-2022 15:04-0400 Body height 177.8 cm Belgica Vega DO Work Phone: [facility] 11-04-2022 15:04-0400 Body weight 117.48 kg Belgica Vega DO Work Phone: [facility] 11-04-2022 15:04-0400 Diastolic blood pressure 82 mm[Hg] Belgica Vega DO Work Phone: [facility] 11-04-2022 15:04-0400 Heart rate 99 /min Belgica Vega DO Work Phone: [facility] 11-04-2022 15:04-0400 Systolic blood pressure 142 mm[Hg] Belgica Vega DO Work Phone: [facility] 11-02-2022 14:18-0400 Body height 177.8 cm Noé Kennedy MD Work Phone: [facility] 11-02-2022 14:18-0400 Body weight 115.67 kg Noé Kennedy MD Work Phone: [facility] 11-02-2022 14:18-0400 Heart rate 90 /min Noé Kennedy MD Work Phone: [facility] 11-02-2022 14:18-0400 SaO2% (BldA) [Mass fraction] 96 % Noé Kennedy MD Work Phone: [facility] 10-13-2022 09:29-0400 Body height 177.8 cm Sukumar Toney MD Work Phone: [facility] 10-13-2022 09:29-0400 Body weight 115.67 kg Sukumar Toney MD Work Phone: [facility] 10-13-2022 09:29-0400 Diastolic blood pressure 93 mm[Hg] Sukumar Toney MD Work Phone: [facility] 10-13-2022 09:29-0400 Heart rate 90 /min Sukumar Toney MD Work Phone: [facility] 10-13-2022 09:29-0400 SaO2% (BldA) [Mass fraction] 96 % Sukumar Toney MD Work Phone: [facility] 10-13-2022 09:29-0400 Systolic blood pressure 165 mm[Hg] Sukumar Toney MD Work Phone: [facility] 10-10-2022 13:32-0400 Body height 177.8 cm Mark Godinez MD Work Phone: [facility] 10-10-2022 13:32-0400 Body weight 115.21 kg Mark Godinez MD Work Phone: [facility] 10-10-2022 13:32-0400 Respiratory rate 16 /min Mark Godinez MD Work Phone: [facility] 09-28-2022 11:05-0400 Body height 177.8 cm Belgica Vega DO Work Phone: [facility] 09-28-2022 11:05-0400 Body weight 115.21 kg Belgica Vega DO Work Phone: [facility] 09-28-2022 11:05-0400 Diastolic blood pressure 81 mm[Hg] Belgica Vega DO Work Phone: [facility] 09-28-2022 11:05-0400 Heart rate 101 /min Belgica Vega DO Work Phone: [facility] 09-28-2022 11:05-0400 Systolic blood pressure 135 mm[Hg] Belgica Vega DO Work Phone: [facility] 09-23-2022 15:27-0400 Body height 177.8 cm Binh Peiffer DO Work Phone: [facility] 09-23-2022 15:27-0400 Body weight 115.21 kg Binh Peiffer DO Work Phone: [facility] 09-23-2022 15:27-0400 Respiratory rate 16 /min Binh Peiffer DO Work Phone: [facility] 09-02-2022 13:34-0400 Body height 177.8 cm Binh Peiffer DO Work Phone: [facility] 09-02-2022 13:34-0400 Body weight 115.21 kg Binh Peiffer DO Work Phone: [facility] 09-02-2022 13:34-0400 Respiratory rate 20 /min Binh Peiffer DO Work Phone: [facility] 08-12-2022 15:35-0400 Body height 177.8 cm Belgica Vega DO Work Phone: [facility] 08-12-2022 15:35-0400 Body weight 115.21 kg Belgica Vega DO Work Phone: [facility] 08-12-2022 15:35-0400 Diastolic blood pressure 92 mm[Hg] Belgica Vega DO Work Phone: [facility] 08-12-2022 15:35-0400 Heart rate 98 /min Belgica Vega DO Work Phone: [facility] 08-12-2022 15:35-0400 Systolic blood pressure 156 mm[Hg] Belgica Vega DO Work Phone: [facility] 07-01-2022 12:59-0400 Body height 177.8 cm Binh Peiffer DO Work Phone: [facility] 07-01-2022 12:59-0400 Body weight 117.94 kg Binh Peiffer DO Work Phone: [facility] 07-01-2022 12:59-0400 Respiratory rate 18 /min Binh Peiffer DO Work Phone: [facility] 06-29-2022 16:59-0400 Diastolic blood pressure 84 mm[Hg] Belgica Vega DO Work Phone: [facility] 06-29-2022 16:59-0400 Systolic blood pressure 144 mm[Hg] Belgica Vega DO Work Phone: [facility] 06-29-2022 15:58-0400 Body height 177.8 cm Belgica Vega DO Work Phone: [facility] 06-29-2022 15:58-0400 Body weight 117.48 kg Belgica Vega DO Work Phone: [facility] 06-29-2022 15:58-0400 Heart rate 92 /min Belgica Vega DO Work Phone: [facility] 06-01-2022 10:44-0500 Body height 177.8 cm Rory Mendoza MD Work Phone: [facility] 06-01-2022 10:44-0500 Body temperature 97 [degF] Rory Mendoza MD Work Phone: [facility] 06-01-2022 10:44-0500 Body weight 116.12 kg Rory Mendoza MD Work Phone: [facility] 06-01-2022 10:44-0500 Diastolic blood pressure 74 mm[Hg] Rory Mendoza MD Work Phone: [facility] 06-01-2022 10:44-0500 Heart rate 91 /min Rory Mendoza MD Work Phone: [facility] 06-01-2022 10:44-0500 SaO2% (BldA) [Mass fraction] 96 % Rory Mendoza MD Work Phone: [facility] 06-01-2022 10:44-0500 Systolic blood pressure 153 mm[Hg] Rory Mendoza MD Work Phone: [facility] 05-18-2022 15:02-0500 Body height 177.8 cm Belgica Wong DO Work Phone: [facility] 05-18-2022 15:02-0500 Body weight 116.12 kg Belgica Vega DO Work Phone: [facility] 05-18-2022 15:02-0500 Diastolic blood pressure 85 mm[Hg] Belgica Vega DO Work Phone: [facility] 05-18-2022 15:02-0500 Heart rate 101 /min Belgica Vega DO Work Phone: [facility] 05-18-2022 15:02-0500 Systolic blood pressure 134 mm[Hg] Belgica Vega DO Work Phone: [facility] 05-04-2022 13:59-0500 Body height 177.8 cm Noé Kennedy MD Work Phone: [facility] 05-04-2022 13:59-0500 Body weight 116.12 kg Noé Kennedy MD Work Phone: [facility] 04-13-2022 16:46-0500 Diastolic blood pressure 90 mm[Hg] Belgica Vega DO Work Phone: [facility] 04-13-2022 16:46-0500 Heart rate 97 /min Belgica Vega DO Work Phone: [facility] 04-13-2022 16:46-0500 Systolic blood pressure 155 mm[Hg] Belgica Vega DO Work Phone: [facility] 04-13-2022 15:49-0500 Body height 177.8 cm Belgica Vega DO Work Phone: [facility] 04-13-2022 15:49-0500 Body weight 116.12 kg Belgica Vega DO Work Phone: [facility] 03-01-2022 15:39-0500 Diastolic blood pressure 86 mm[Hg] Belgica Vega DO Work Phone: [facility] 03-01-2022 15:39-0500 Systolic blood pressure 146 mm[Hg] Belgica Vega DO Work Phone: [facility] 03-01-2022 14:51-0500 Body height 177.8 cm Belgica Vega DO Work Phone: [facility] 03-01-2022 14:51-0500 Body weight 115.67 kg Belgica Vega DO Work Phone: [facility] 03-01-2022 14:51-0500 Heart rate 96 /min Belgica Vega DO Work Phone: [facility] 01-17-2022 14:18-0400 Body height 177.8 cm Billy Cody MD Work Phone: [facility] 01-17-2022 14:18-0400 Body weight 115.67 kg Billy Cody MD Work Phone: [facility] 01-17-2022 14:18-0400 Diastolic blood pressure 85 mm[Hg] Billy Cody MD Work Phone: [facility] 01-17-2022 14:18-0400 Heart rate 90 /min Billy Cody MD Work Phone: [facility] 01-17-2022 14:18-0400 SaO2% (BldA) [Mass fraction] 95 % Billy Cody MD Work Phone: [facility] 01-17-2022 14:18-0400 Systolic blood pressure 165 mm[Hg] Billy Cody MD Work Phone: [facility] 01-03-2022 15:20-0400 Body height 177.8 cm Belgica Vega DO Work Phone: [facility] 01-03-2022 15:20-0400 Body weight 115.67 kg Belgica Vega DO Work Phone: [facility] 01-03-2022 15:20-0400 Diastolic blood pressure 85 mm[Hg] Belgica Vega DO Work Phone: [facility] 01-03-2022 15:20-0400 Heart rate 94 /min Belgica Vega DO Work Phone: [facility] 01-03-2022 15:20-0400 Systolic blood pressure 141 mm[Hg] Belgica Vega DO Work Phone: [facility] 11-05-2021 17:01-0400 Diastolic blood pressure 94 mm[Hg] Belgica Vega DO Work Phone: [facility] 11-05-2021 17:01-0400 Heart rate 85 /min Belgica Vega DO Work Phone: [facility] 11-05-2021 17:01-0400 Systolic blood pressure 160 mm[Hg] Belgica Vega DO Work Phone: [facility] 11-05-2021 16:12-0400 Body height 177.8 cm Belgica Vega DO Work Phone: [facility] 11-05-2021 16:12-0400 Body weight 122.02 kg Belgica Vega DO Work Phone: [facility] 10-27-2021 13:41-0400 Body height 177.8 cm Noé Kennedy MD Work Phone: [facility] 10-27-2021 13:41-0400 Body weight 122.02 kg Noé Kennedy MD Work Phone: [facility] 10-05-2021 15:06-0400 Body height 177.8 cm Belgica Vega DO Work Phone: [facility] 10-05-2021 15:06-0400 Body temperature 98.2 [degF] Belgica Vega DO Work Phone: [facility] 10-05-2021 15:06-0400 Body weight 117.94 kg Belgica Vega DO Work Phone: [facility] 10-05-2021 15:06-0400 Diastolic blood pressure 80 mm[Hg] Belgica Vega DO Work Phone: [facility] 10-05-2021 15:06-0400 Heart rate 78 /min Belgica Vega DO Work Phone: [facility] 10-05-2021 15:06-0400 SaO2% (BldA) [Mass fraction] 99 % Belgica Vega DO Work Phone: [facility] 10-05-2021 15:06-0400 Systolic blood pressure 130 mm[Hg] Belgica Vega DO Work Phone: [facility] 09-20-2021 13:20-0400 Body height 177.8 cm Belgica Vega DO Work Phone: [facility] 09-20-2021 13:20-0400 Body temperature 98.29 [degF] Belgica Vega DO Work Phone: [facility] 09-20-2021 13:20-0400 Body weight 117.94 kg Belgica Vega DO Work Phone: [facility] 09-20-2021 13:20-0400 Diastolic blood pressure 84 mm[Hg] Belgica Vega DO Work Phone: [facility] 09-20-2021 13:20-0400 Heart rate 99 /min Belgica Vega DO Work Phone: [facility] 09-20-2021 13:20-0400 Systolic blood pressure 143 mm[Hg] Belgica Vega DO Work Phone: [facility] 08-11-2021 15:56-0400 Body height 177.8 cm Belgica Vega DO Work Phone: [facility] 08-11-2021 15:56-0400 Body temperature 98.29 [degF] Belgica Vega DO Work Phone: [facility] 08-11-2021 15:56-0400 Body weight 122.47 kg Belgiac Vega DO Work Phone: [facility] 08-11-2021 15:56-0400 Diastolic blood pressure 79 mm[Hg] Belgica Vega DO Work Phone: [facility] 08-11-2021 15:56-0400 Heart rate 94 /min Belgica Vega DO Work Phone: [facility] 08-11-2021 15:56-0400 Systolic blood pressure 127 mm[Hg] Belgica Vega DO Work Phone: [facility] 05-28-2020 16:04-0500 Body Temperature 97.59 [degF] Belgica Herrera [facility] 05-28-2020 16:04-0500 Body weight 122.33 kg Belgica Herrera [facility] 05-28-2020 16:04-0500 Height 177.8 cm Belgica Herrera [facility] 05-28-2020 16:04-0500 Pulse Oximetry 98 % Belgica Herrera [facility] 05-28-2020 16:04-0500 Respiratory Rate 16 /min Belgica Herrera [facility] 04-27-2020 16:37-0500 BP Diastolic 90 mm[Hg] Belgica Herrera [facility] 04-27-2020 16:37-0500 BP [facility]stolic 155 mm[facility]Hg[facility] 04-27-2020 16:37-0500 Pulse (Heart Rate) 86 /min Belgica [facility] 04-27-2020 15:54-0500 Body Temperature 98.6 [degF] Belgica [facility] 04-27-2020 15:54-0500 Body weight 123.11 kg [facility] 04-27-2020 15:54-0500 Height 178.5 cm [facility] 04-27-2020 15:54-0500 Pulse Oximetry 98 % Belgica [facility] 04-27-2020 15:54-0500 Respiratory Rate 18 /min [facility] 03-23-2020 15:44-0500 Body Temperature 98.01 [degF] Belgica [facility] 03-23-2020 15:44-0500 Body weight 123.29 kg [facility] 03-23-2020 15:44-0500 BP Diastolic 89 mm[Hg] [facility] 03-23-2020 15:44-0500 BP Systolic 147 mm[Hg] [facility] 03-23-2020 15:44-0500 Height 178.5 cm [facility] 03-23-2020 15:44-0500 Pulse (Heart Rate) 85 /min Belgica [facility] 03-23-2020 15:44-0500 Pulse Oximetry 97 % [facility] 03-23-2020 15:44-0500 Respiratory Rate 18 /min [facility] 02-20-2020 15:01-0500 Body Temperature 98.2 [degF] [facility] 02-20-2020 15:01-0500 Body weight 120.02 kg [facility] 02-20-2020 15:01-0500 BP Diastolic 82 mm[Hg] [facility] 02-20-2020 15:01-0500 BP Systolic 144 mm[Hg] [facility] 02-20-2020 15:01-0500 Height 178.5 cm [facility] 02-20-2020 15:01-0500 Pulse (Heart Rate) 94 /min [facility] 02-20-2020 15:01-0500 Pulse Oximetry 97 % Belgica [facility] 02-20-2020 15:01-0500 Respiratory Rate 18 /min Belgicaluca Herrera [facility] 02-14-2020 16:24-0500 Body Temperature 98.1 [degF] [facility] 02-14-2020 16:24-0500 Body weight 121.02 kg [facility] 02-14-2020 16:24-0500 BP Diastolic 93 mm[Hg] [facility] 02-14-2020 16:24-0500 BP Systolic 161 mm[Hg] [facility] 02-14-2020 16:24-0500 Height 176.5 cm [facility] 02-14-2020 16:24-0500 Pulse (Heart Rate) 93 /min Belgica [facility] 02-14-2020 16:24-0500 Pulse Oximetry 97 % [facility] 02-14-2020 16:24-0500 Respiratory Rate 18 /min Belgica [facility] Encounters Encounter Date Encounter Type Care Provider Facility Start: 01-15-2025 ambulatory Brittaney LORENZO Facility:[facility] Start: 11-25-2024 End: 11-29-2024 Evaluation and management of inpatient Omid Adames MD Work Phone: [facility] Comment on above: Chills (Primary Dx); Shakes; History of chronic renal failure; Elevated lactic acid level; Chronic pain syndrome Start: 10-14-2024 ambulatory Brittaney LORENZO Facility:[facility] Start: 10-07-2024 End: 10-07-2024 ambulatory Brittaney LORENZO Facility:[facility] Start: 08-28-2024 End: 08-28-2024 ambulatory Brittaney Garcia MD [facility] Work Phone: Start: 08-28-2024 End: 08-28-2024 Departed [facility] Start: 08-28-2024 End: 08-28-2024 ambulatory Josemarva Radha BJ Facility:[facility] Start: 07-24-2024 End: 07-24-2024 Telephone encounter Claudia Chow LPN Work Phone: [facility] Comment on above: Home Care (Referral discarded ) Start: 07-16-2024 End: 07-16-2024 Telephone encounter Claudia Chow LPN Work Phone: [facility] Comment on above: Home Care (Confirmation Call ) Start: 07-12-2024 End: 07-12-2024 Telephone encounter Judith Andrewsvale GARZA Work Phone: [facility] Comment on above: Home Care (MD to Follow) Start: 07-10-2024 End: 07-24-2024 Evaluation and management of inpatient JOSE DUDLEY Facility:[facility] Start: 07-10-2024 End: 07-10-2024 Office outpatient visit 40 minutes Jose Dudley MD Work Phone: [facility] Comment on above: CKD stage G5/A3, GFR [...] Orders Only Jose Dudley MD Work Phone: [facility] Comment on above: [...] Follow-up encounter Artem Ahmadi MD Work Phone: [facility] Start: 05-14-2024 End: 05-14-2024 Follow-up encounter Artem Ahmadi MD Work Phone: [facility] Start: 05-13-2024 Encounter for other preprocedural examination ARTEM AHMADI [facility] Start: 05-13-2024 ambulatory ARTEM AHMADI Facility:[facility] Start: 05-13-2024 End: 05-13-2024 Preprocedural examination done Artem Ahmadi MD Work Phone: [facility] Start: 05-13-2024 End: 05-13-2024 Subsequent hospital visit by physician Artem Ahmadi MD Work Phone: [facility] Comment on above: History of rectal cancer [Z85.048] Start: 04-27-2024 End: 08-20-2024 ambulatory Randi [facility] Start: 04-27-2024 End: 08-20-2024 Patient encounter procedure Randi Eason RN [facility] Start: 04-26-2024 End: 04-26-2024 Telephone encounter Jose Dudley MD Work Phone: [facility] Comment on above: Results Start: 04-26-2024 End: 04-26-2024 ambulatory BUNNY M ESTERLE Facility:[facility] Start: 02-20-2024 End: 02-20-2024 Orders Only Artem Ahmadi MD Work Phone: [facility] Comment on above: History of rectal cancer (Primary Dx) Procedure ([facility]) Start: 01-24-2024 End: 01-24-2024 ambulatory BUNNY M ESTERLE Facility:[facility] Start: 01-24-2024 End: 01-24-2024 Office outpatient visit 25 minutes Jose Dudley MD Work Phone: [facility] Comment on above: Anemia of renal disease (Primary Dx); Stage 3b chronic kidney disease (HCC); Vitamin D deficiency; Other proteinuria; Chronic kidney disease-mineral and bone disorder; Diabetes mellitus with nephropathy (HCC); Dietary counseling and surveillance; Hyperkalemia; Hypertension, essential; Hyperuricemia; Secondary renal hyperparathyroidism (HCC) Start: 12-29-2023 End: 12-29-2023 ambulatory RENETTA GANNON Facility:[facility] Start: 12-22-2023 End: 12-22-2023 Telephone encounter Noé Kennedy MD Work Phone: [facility] Start: 12-18-2023 End: 12-18-2023 Telephone encounter Artem Ahmadi MD Work Phone: [facility] GENERAL SURGERY DEPARTMENT Comment on above: Schedule Colonoscopy Start: 12-08-2023 End: 03-08-2024 Transcribe Orders Florentin Gutierrez MD Work Phone: [facility] Central Scheduling Comment on above: Other specified postprocedural states (P rimary Dx); Spinal stenosis, lumbar region with neurogenic claudication Start: 11-20-2023 End: 11-20-2023 Home visit Noé Maldonado PT Work Phone: [facility] Comment on above: PT AGENCY DC W VISIT Start: 11-17-2023 Telephone encounter Noé Maldonado PT Work Phone: [facility] Comment on above: Home Care (Unmade P.T. visit) Start: 11-17-2023 End: 11-17-2023 Home visit Simeon Hinds RN Work Phone: [facility] Comment on above: CARE COORDINATION PT UNMADE VISIT Start: 11-16-2023 End: 11-16-2023 Home visit Eda Bright RN Work Phone: [facility] Comment on above: SN DISC DC W VISIT Start: 11-15-2023 End: 11-15-2023 Home visit Nan GUANW Work Phone: [facility] Comment on above: HAIR MIXER CARE COORDINATION CARE COORDINATION Start: 11-14-2023 End: 11-14-2023 Home visit Renea Hairston INSOLVENCY CONSULTANT Work Phone: [facility] Comment on above: INSOLVENCY CONSULTANT ROUTINE HAIR MIXER CARE COORDINATIO N Start: 11-13-2023 End: 11-13-2023 Home visit Keyla Fernanda OT/L Work Phone: [facility] Comment on above: OT DISC DC W VISIT Start: 11-10-2023 End: 11-10-2023 Home visit Eda Bright RN Work Phone: [facility] Comment on above: SN ROUTINE Start: 11-10-2023 End: 11-10-2023 ambulatory [facility]ates RN [facility] Start: 11-10-2023 End: 11-10-2023 Patient encounter procedure [facility]ates [facility] Start: 11-09-2023 End: 11-09-2023 Home visit Renea Hairston INSOLVENCY CONSULTANT Work Phone: [facility] Comment on above: INSOLVENCY CONSULTANT ROUTINE Start: 11-07-2023 End: 11-07-2023 Home visit Eda Bright RN Work Phone: [facility] Comment on above: SN UNMADE VISIT INSOLVENCY CONSULTANT ROUTINE Start: 11-06-2023 End: 11-06-2023 Home visit Keyla Fernanda OT/L Work Phone: [facility] Comment on above: OT ROUTINE WITH BATH Start: 11-03-2023 End: 11-03-2023 Home visit Simeon Hinds RN Work Phone: [facility] Comment on above: CARE COORDINATION TELEPHONE CONTACT SN ROUTINE Start: 11-02-2023 End: 11-02-2023 Home visit Renea Hairston INSOLVENCY CONSULTANT Work Phone: [facility] Comment on above: INSOLVENCY CONSULTANT ROUTINE Start: 11-01-2023 End: 11-01-2023 Home visit Noé Maldonado PT Work Phone: [facility] Comment on above: PT UNMADE VISIT Start: 10-31-2023 End: 10-31-2023 Home visit Eda Bright RN Work Phone: [facility] Comment on above: SN ROUTINE Start: 10-30-2023 End: 10-30-2023 Home visit Keyla Fernanda OT/L Work Phone: [facility] Comment on above: OT ROUTINE Start: 10-28-2023 Telephone encounter Zohaib Abel PT Work Phone: [facility] Comment on above: Erroneous encounter-disregard Start: 10-28-2023 End: 10-28-2023 Home visit Zohaib Abel PT Work Phone: [facility] Comment on above: PT EVAL Start: 10-27-2023 Telephone encounter Bunny Scott MD Work Phone: [facility] Comment on above: Home Care (Scheduling Confirmation (Eval uation visit)) Home Care (DELAY IN SERVICE) Start: 10-27-2023 End: 10-27-2023 Home visit Keyla Fernanda OT/L Work Phone: [facility] Comment on above: OT EVAL Start: 10-26-2023 End: 10-26-2023 Home visit Nan Carrion BILINGUAL HR GENERALIST Work Phone: [facility] Comment on above: HAIR MIXER CARE COORDINATION HAIR MIXER EVAL SN ROUTINE Start: 10-24-2023 End: 10-24-2023 Home visit Nan Carrion BILINGUAL HR GENERALIST Work Phone: [facility] Comment on above: HAIR MIXER CARE COORDINATION Start: 10-23-2023 End: 10-23-2023 Home visit Nan Carrion BILINGUAL HR GENERALIST Work Phone: [facility] Comment on above: HAIR MIXER CARE COORDINATION Start: 10-22-2023 End: 10-22-2023 Home visit Nguyen Whitaker RN Work Phone: [facility] Comment on above: SN SOC Start: 10-21-2023 Telephone encounter Nguyen Whitaker RN Work Phone: [facility] Start: 10-20-2023 Telephone encounter Bunny Scott MD Work Phone: [facility] Comment on above: Home Care Start: 10-12-2023 Telephone encounter Savanna Mayorga GREG Work Phone: [facility] Comment on above: Home Care (MD to follow ) Home Care (Confirmat ion Call ) Start: 10-04-2023 End: 10-20-2023 Evaluation and management of inpatient BUNNY SCOTT Facility:[facility] Start: 08-01-2023 Telephone encounter Noé Kennedy MD Work Phone: Urology Start: 07-28-2023 Telephone encounter Mónica Peterson MD Work Phone: Endocrinology Comment on above: Patient Update Start: 07-12-2023 End: 07-12-2023 Patient encounter procedure Noé Kennedy MD Work Phone: Urology Comment on above: Nocturia (Primary Dx); Benign prostatic hyperplasia with nocturia; Screening PSA (prostate specific antigen) Start: 07-12-2023 End: 07-12-2023 ambulatory BUNNY CSOTT Facility:[facility] Start: 06-22-2023 End: 06-22-2023 Office outpatient visit 25 minutes Jose Dudley MD Work Phone: [facility] Comment on above: Anemia of renal disease (Primary Dx); Stage 3b chronic kidney disease (HCC); Vitamin D deficiency; Other proteinuria Start: 06-20-2023 Orders Only Jose Dudley MD Work Phone: [facility] Comment on above: Stage 3a chronic kidney disease (HCC) (P rimary Dx); Hypertension, essential; Vitamin D deficiency; Other proteinuria; Secondary hyperparathyroidism (HCC) Start: 06-12-2023 End: 06-13-2023 ambulatory BUNNY SCOTT [facility] Start: 05-23-2023 ambulatory Jen Bergman RN AG VNS Start: 05-23-2023 Coordination of care plan Jen Bergman RN AG [employer] Comment on above: Pay Agent Chronic Care (D /C Care Coordination - Non-CC PCP) Start: 05-23-2023 End: 05-23-2023 Patient encounter procedure Mónica Peterson MD Work Phone: Endocrinology Comment on above: Poorly controlled type 2 diabetes martin ([facility]) Start: 05-19-2023 ambulatory Jen Bergman RN AG [employer] Comment on above: Pay Agent Chronic Care (P CC f/u) Start: 05-12-2023 Telephone encounter Catracho Davis DO Work Phone: [facility] Comment on above: Appointment Start: 03-07-2023 Telephone encounter Mark Godinez MD Work Phone: [facility] Comment on above: Appointment Start: 01-27-2023 ambulatory Jen Bergman RN AG [employer] Comment on above: Pay Agent Chronic Care (P CC f/u) Start: 01-23-2023 End: 01-23-2023 Patient encounter procedure Mark Godinez MD Work Phone: [facility] Comment on above: Primary osteoarthritis of left hip (Prim karin Dx) Start: 01-06-2023 Telephone encounter Mark Godinez MD Work Phone: [facility] Start: 12-23-2022 End: 12-23-2022 Patient encounter procedure Belgica Vega DO Work Phone: [facility] Comment on above: Hypertension, essential (Primary Dx); Bilateral leg edema; Diabetes mellitus due to underlying condition, uncontrolled, with hyperglycemia ([facility]); Mixed hyperlipidemia; Vitamin D deficiency; H/O medication noncompliance; Hyponatremia; Elevated alkaline phosphatase level; Stage 3 chronic kidney disease, unspecified whether stage 3a or 3b CKD ([facility]); BPH associated with nocturia; Mild mitral regurgitation [...] Lumbar radiculopathy Start: 12-23-2022 Telephone encounter Belgica Vega DO Work Phone: [facility] [employer] [facility] Comment on above: Consult (Pain Management) Start: 12-01-2022 End: 12-01-2022 Subsequent hospital visit by physician [facility] Comment on above: OTT (dyspnea on exertion) [R06.09] Precordial pain [R07 .2] Start: 11-24-2022 ambulatory Jen Bergman RN [employer] Comment on above: Pay Agent Chronic Care (P CC f/u) Start: 11-14-2022 Telephone encounter Belgica Vega DO Work Phone: [facility] Comment on above: Medication Problem Start: 11-09-2022 Telephone encounter Candice Braun MD Work Phone: [facility] Endocrinology, Diabetes, and Metabolism Comment on above: Appointment (New patient Referral) Start: 11-07-2022 Telephone encounter Belgica Brandon Vega DO Work Phone: [facility] Comment on above: Internal Referrals/resources (Neurology) Start: 11-04-2022 End: 11-04-2022 Patient encounter procedure Belgica Vega DO Work Phone: [facility] Comment on above: Cutaneous abscess of abdominal [...] Telephone encounter Belgica Vega DO Work Phone: [facility] [employer] [facility] Comment on above: Consult (Endocrinology) Consult (Dermatology ) Appointment Start: 11-02-2022 End: 11-02-2022 Patient encounter procedure Noé Kennedy MD Work Phone: Urology Comment on above: Nocturia (Primary Dx); Benign prostatic hyperplasia with nocturia Start: 11-02-2022 Telephone encounter Belgica Vega DO Work Phone: [facility] Comment on above: Results Start: 11-01-2022 Patient Outreach Jen Bergman RN [employer] Comment on above: Pay Agent Chronic Care (P CC f/u); Transition Of Care (TCM f/u) Primary Care Coordin ator Chronic Care (Pt feels sick) Start: 10-28-2022 Telephone encounter Artem Ahmadi MD Work Phone: [facility] SUR[facility]ERY [facility]PART[facility] Comment on above: Results (Surgical pathology) Start: 10-14-2022 Telephone encounter Belgica Vega DO Work Phone: [facility] Comment on above: Patient Question Start: 10-13-2022 End: 10-13-2022 Patient encounter procedure Sukumar Toney MD Work Phone: [facility] [place] Comment on above: Precordial pain (Primary Dx); OTT (dyspnea on exertion); Primary hypertension; Dyslipidemia; Demand ischemia (HCC) Start: 10-12-2022 Patient Outreach Jen Bergman RN [employer] Comment on above: Pay Agent Chronic Care (P CC f/u); Transition Of Care (TCM f/u) Start: 10-10-2022 End: 10-10-2022 Patient encounter procedure Mark Godinez MD Work Phone: [facility] Comment on above: Pain in left hip (Primary Dx) Start: 10-03-2022 Patient Outreach Jen Bergman RN [employer] Comment on above: Transition Of Care (TCM f/u); Primary Ca re Coordinator Chronic Care (PCC f/u) Start: 09-29-2022 Patient Outreach Jen Bergman RN [employer] Comment on above: Pay Agent Chronic Care (P CC f/u); Transition Of Care (TCM f/u) Start: 09-28-2022 Telephone encounter Belgica Vega DO Work Phone: [facility] Comment on above: Consult (Cardio / Mershon / Nephro) Start: 09-28-2022 End: 09-28-2022 Patient encounter procedure Belgica Brandon Je DO Work Phone: [facility] Comment on above: Hospital discharge follow-up (Primary [...] encounter procedure Binh Lake DO Work Phone: [facility] Comment on above: Lumbar back pain with radiculopathy affe cting lower extremity (Primary Dx); Chronic bilateral low back pain with left-sided sciatica Start: 09-16-2022 End: 09-16-2022 Patient encounter procedure Meera Ben OD Work Phone: [facility] Comment on above: Pseudophakia of both eyes (Primary Dx) Start: 09-05-2022 Telephone encounter Renetta Gannon MD Work Phone: [facility] Comment on above: Appointment Start: 09-02-2022 End: 09-02-2022 Orders Only Artem Ahmadi MD Work Phone: [facility] Comment on above: History of rectal cancer (Primary Dx) Lumbar back pain wit h radiculopathy affecting lower extremity (Primary Dx); Chronic left hip pain; Spinal stenosis of lumbar region with neurogenic claudication; Lumbar radiculopathy; Chronic bilateral low back pain with left-sided sciatica; Spinal stenosis of lumbar region, unspecified whether neurogenic claudication present Start: 08-30-2022 ambulatory Belgica Vega DO Work Phone: [employer] Start: 08-30-2022 End: 08-30-2022 Subsequent hospital visit by physician Mri [facility] (I-Stat/Lg Bore/1.5t) [facility] Comment on above: Pain in hip [M25.559] Start: 08-30-2022 End: 08-30-2022 Subsequent hospital visit by physician Lamonte Curtis MD Work Phone: [facility] Comment on above: Pain of left hip [M25.552] Pain in hip [M25.559 ] Start: 08-15-2022 Telephone encounter Renetta Gannon MD Work Phone: [facility] Comment on above: Appointment (sx) Start: 08-12-2022 End: 08-12-2022 Patient encounter procedure Belgica Vega DO Work Phone: [facility] Comment on above: Encounter for annual physical [...] Telephone encounter Renetta Gannon MD Work Phone: [facility] Comment on above: Appointment (A-scan reminder) Start: 07-28-2022 Telephone encounter Renetta Gannon MD Work Phone: [facility] Comment on above: Returning Patient's Call (r/s ascan) Start: 07-27-2022 Telephone encounter Renetta Gannon MD Work Phone: [facility] Comment on above: Appointment (ascan) Start: 07-14-2022 End: 07-14-2022 Patient encounter procedure Renetta Gannon MD Work Phone: [facility] Comment on above: Nuclear senile cataract of both eyes (Pr imary Dx) Start: 07-01-2022 End: 07-01-2022 Patient encounter procedure Binh Lake DO Work Phone: [facility] Comment on above: Pain in hip (Primary Dx); Lumbar back pain with radiculopathy affecting lower extremity; Chronic left hip pain Start: 06-29-2022 End: 06-29-2022 Patient encounter procedure Belgica Vega DO Work Phone: [facility] Comment on above: Hypertension, essential (Primary Dx); [...] management service Belgica Vega DO Work Phone: [facility] [employer] [facility] Comment on above: Opened In Error Start: 06-22-2022 Chart abstracting [facility] Main Work Phone: [facility] Comment on above: Psg Check In (Adult) Start: 06-01-2022 End: 06-01-2022 ambulatory Rory Mendoza MD Work Phone: [facility] Hematology and Oncology Comment on above: History of rectal cancer (Primary Dx); Pulmonary nodules; Hip pain; Spinal stenosis of lumbar region with neurogenic claudication Start: 06-01-2022 End: 06-01-2022 Patient encounter procedure Rory Mendoza MD Work Phone: [facility] Start: 05-19-2022 Telephone encounter Belgica Vega DO Work Phone: [facility] Comment on above: Consult Start: 05-18-2022 End: 05-18-2022 Patient encounter procedure Belgica Vega DO Work Phone: [facility] Comment on above: Hypertension, essential [...] type Start: 05-11-2022 ambulatory Jen Bergman RN [employer] Comment on above: Pay Agent Chronic Care (P CC f/u) Start: 05-05-2022 Telephone encounter Renetta Gannon MD Work Phone: [facility] Comment on above: eyeglass perscription Start: 05-04-2022 End: 05-04-2022 Patient encounter procedure Noé Kennedy MD Work Phone: Urology Comment on above: Nocturia; Screening PSA (prostate specific antigen); Hematuria, microscopic; Benign prostatic hyperplasia with nocturia Start: 04-26-2022 Patient Outreach Jen Bergman RN [employer] Comment on above: Pay Agent Chronic Care (P CC f/u); Transition Of Care (TCM f/u) Start: 04-21-2022 Patient Outreach Jen Bergman RN [employer] Comment on above: Pay Agent Chronic Care (P CC f/u); Transition Of Care (TCM f/u) Start: 04-13-2022 End: 04-13-2022 Patient encounter procedure Belgica Vega DO Work Phone: [facility] Comment on above: Hospital discharge follow-up (Primary [...] Start: 04-05-2022 Patient Outreach Jen Bergman RN [employer] Comment on above: Transition Of Care (AG D/C 04/01/22) Start: 03-30-2022 Telephone encounter Belgica Vega DO Work Phone: [facility] Comment on above: Consult Start: 03-23-2022 Telephone encounter Belgica Vega DO Work Phone: [facility] Comment on above: Results Start: 03-17-2022 Patient Outreach Jen Bergman RN [employer] Comment on above: Transition Of Care (TCM f/u); Primary Ca re Coordinator Chronic Care (PCC f/u) Start: 03-11-2022 Patient Outreach Jen Bergman RN [employer] Comment on above: Pay Agent Chronic Care (P CC f/u); Transition Of Care (TCM f/u) Start: 03-10-2022 Telephone encounter Belgica Brandon Vega DO Work Phone: [facility] Comment on above: Patient Update Start: 03-01-2022 End: 03-01-2022 Patient encounter procedure Belgica Vega DO Work Phone: [facility] Comment on above: Hypertension, essential [...] for immunization Start: 03-01-2022 Telephone encounter Belgica Brandon Je DO Work Phone: [facility] Comment on above: Consult Start: 02-23-2022 Telephone encounter Artem Ahmadi MD Work Phone: [facility] GENER[facility] SUR[facility]ERY [facility] Comment on above: Appointment Start: 02-21-2022 ambulatory Jen Bergman RN AG VNS Start: 02-21-2022 Chart abstracting Janie Pickett APRN.PAYROLL SECRETARY Work Phone: [facility] Comment on above: Transition Of Care (SNF status - SNF D/C 02/15/22); Pay Agent Chronic Care (PCC f/u) Start: 02-21-2022 Telephone encounter Janie Pickett APRN.PAYROLL SECRETARY Work Phone: [facility] Comment on above: No Show Start: 01-28-2022 Patient Outreach Jen Bergman RN AG [employer] Comment on above: Transition Of Care (CC Taoist D/C to S NF 01/27/22) Start: 01-20-2022 End: 01-27-2022 Evaluation and management of inpatient [facility] Facility:[facility] Start: 01-19-2022 Admission to establishment Keyla Page [facility] Start: 01-19-[facility] Comment on above: Behavioral Problem Start: 01-18-2022 ambulatory Jen Bergman RN VNS Start: 01-18-2022 Follow-up encounter Jen Bergman RN [employer] Comment on above: Pay Agent Hospital Follow Up (Hospital admit - SBAR) Start: 01-17-2022 End: 01-20-2022 Evaluation and management of inpatient BELGICA Roma VEGA Facility:[facility] Start: 01-17-2022 End: 01-17-2022 Patient encounter procedure [...] psychotic features (HCC) Start: 01-17-2022 Admission to [facility] Lyndsay Pee [facility] Start: 01-17-2022 End: 01-17-2022 ambulatory Lyndsay Glasgow [facility] Behavioral Health Intake Comment on above: Psychiatric Problem Start: 01-14-2022 Telephone encounter Renetta Gannon MD Work Phone: [facility] Comment on above: Appointment Appointment (A-scan reminder); Surgery Cancelled (Per Patient) Start: 01-07-2022 ambulatory Jen Bergman RN [employer] Comment on above: Pay Agent Chronic Care (P CC f/u) Start: 01-03-2022 End: 01-03-2022 Patient encounter procedure Belgica Vega DO Work Phone: [facility] Comment on above: Hypertension, essential [...] anger Start: 12-28-2021 ambulatory Jen Bergman RN [employer] Comment on above: Pay Agent Chronic Care (P CC f/u) Start: 12-20-2021 Chart abstracting Billy Cody MD Work Phone: [facility] Start: 12-03-2021 ambulatory Jen Bergman RN [employer] Comment on above: Pay Agent Chronic Care (P CC f/u) Start: 11-30-2021 Telephone encounter Renetta Gannon MD Work Phone: [facility] Comment on above: Schedule Surgery ([place] Right Eye) Start: 11-22-2021 Telephone encounter Renetta Gannon MD Work Phone: [facility] Comment on above: Letter Start: 11-09-2021 Telephone encounter Renetta Gannon MD Work Phone: [facility] Comment on above: Schedule Surgery ([place] Right Eye) Start: 11-05-2021 End: 11-05-2021 Patient encounter procedure Belgica Vega DO Work Phone: [facility] Comment on above: Hypertension, essential (Primary Dx); [...] eyes Start: 11-01-2021 ambulatory Jen Bergman RN [employer] Comment on above: Pay Agent Chronic Care (P CC f/u) Start: 10-27-2021 End: 10-27-2021 Patient encounter procedure Noé Kennedy MD Work Phone: Urology Comment on above: Benign prostatic hyperplasia with noctur ia (Primary Dx); Hematuria, microscopic; Screening PSA (prostate specific antigen); Nocturia Start: 10-26-2021 Telephone encounter Belgica Vega DO Work Phone: [facility] Comment on above: Follow Up Phone Call (called pt mailbox full mailed letter) Start: 10-14-2021 Telephone encounter Artem Ahmadi MD Work Phone: [facility] GENERAL SURGERY [facility]MENT Comment on above: Schedule Surgery Start: 10-05-2021 End: 10-05-2021 Patient encounter procedure Belgica Vega DO Work Phone: [facility] Comment on above: Abscess of neck (Primary [...] Telephone encounter Belgica Vega DO Work Phone: [facility] Comment on above: Internal Referrals/resources (Nephrology ) Start: 09-20-2021 Telephone encounter Belgica Vega DO Work Phone: [facility] Comment on above: Internal Referrals/resources (Ophthalmol ogy) Start: 09-20-2021 End: 09-20-2021 Patient encounter procedure Belgica Vega DO Work Phone: [facility] Comment on above: Hospital discharge follow-up (Primary [...] retinopathy Start: 09-17-2021 ambulatory Jen Bergman RN [employer] Comment on above: Pay Agent Chronic Care (P CC f/u) Start: 09-08-2021 Patient Outreach Jen Bergman RN [employer] Comment on above: Transition Of Care (ED D/C 09/07/21); Prim karin Licensed Veterinary Technician - Patient Initiated (Received call from pt) Start: 09-06-2021 ambulatory Jen Bergman RN [employer] Operator Comment on above: Pay Agent Chronic Care (P CC f/u) Start: 08-27-2021 Chart abstracting Janie Pickett APRN.CNP Work Phone: [facility] Start: 08-13-2021 Telephone encounter Artem Ahmadi MD Work Phone: [facility] Comment on above: Results Start: 08-11-2021 End: 08-11-2021 Patient encounter procedure Belgica Vega DO Work Phone: [facility] Comment on above: Diabetes mellitus [...] Subsequent hospital visit by physician Mri [facility] (I-Stat/1.5t) [facility] Comment on above: Neoplasm: colorectal, rx monitor or foll ow up Start: 08-05-2021 ambulatory Jen Bergman RN [employer] Comment on above: Pay Agent Chronic Care (P CC f/u) Start: 07-23-2021 Refill Belgica Vega DO Work Phone: [employer] Comment on above: Pay Agent Chronic Care (R efill) Start: 07-22-2021 ambulatory Jen Bergman RN [employer] Comment on above: Pay Agent Chronic Care (P CC f/u) Start: 07-06-2021 Telephone encounter Belgica Vega DO Work Phone: [facility] Comment on above: Results; Appointment; Patient Update Start: 07-01-2021 Chart abstracting Janie Pickett APRN.CNP Work Phone: [facility] [place] [facility] Start: 09-10-2020 End: 09-10-2020 Subsequent hospital visit by physician Mri [facility](I-Stat/Lg Bore/1.5t) Work Phone: Radiology Comment on above: Malignant neoplasm of rectum (HCC) [C20] Start: 05-30-2020 End: 05-30-2020 Patient encounter procedure Aron Renyolds Work Phone: [facility] Start: 05-30-2020 Results Only Aron Reynolds Work Phone: [facility] [place] Start: 05-29-2020 End: 05-29-2020 Patient encounter procedure [facility] Provider [facility] Start: 05-29-2020 Results Only [facility] Provider [facility] Department Start: 05-29-2020 End: 05-29-2020 Telephone encounter Belgica Herrera Work Phone: [facility] Comment on above: Patient Update (Neurology referral, no n umber on file for the patient) Start: 05-28-2020 End: 05-28-2020 Patient encounter procedure Belgica Herrera Work Phone: [facility] Comment on above: Hypertension, essential (Primary Dx); Chronic nausea; Myalgia; Marijuana use; Drooling; Chronic vertigo; Screening for diabetic retinopathy; Glucosuria; Uncontrolled type 2 diabetes mellitus with hyperglycemia (HCC); Primary osteoarthritis of left shoulder; Mixed hyperlipidemia Start: 05-28-2020 End: 05-28-2020 Patient encounter procedure Juancho (Operations/Dispatch-S) Marichuy Work Phone: [facility] Behavioral Medicine (Julio César) Comment on above: Severe episode of recurrent major depres sive disorder, without psychotic features (HCC) (Primary Dx); Anxiety disorder, unspecified type Start: 05-14-2020 End: 05-14-2020 Telephone encounter Belgica Herrera Work Phone: [facility] Comment on above: Results Start: 05-14-2020 End: 05-14-2020 Subsequent hospital visit by physician [facility] Comment on above: Left shoulder pain, unspecified chronici ty [M25.512] Start: 05-06-2020 End: 05-06-2020 Telephone encounter Belgica Herrera Work Phone: [facility] Comment on above: Patient Update Start: 05-05-2020 End: 05-05-2020 Patient encounter procedure Carla Tripathi Work Phone: [facility] Comment on above: Chronic bilateral low back pain, unspeci fied whether sciatica present (Primary Dx); Weakness; Decreased mobility and endurance Start: 04-27-2020 End: 04-27-2020 Patient encounter procedure Belgica Herrera Work Phone: [facility] Comment on above: Uncontrolled hypertension (Primary Dx); Diabetes mellitus due to underlying condition, uncontrolled, with hyperglycemia (HCC); Mixed hyperlipidemia; Marijuana use; Chronic bilateral low back pain with sciatica, sciatica laterality unspecified; Lumbar radiculopathy; Dysuria; Fall (on) (from) other stairs and steps, initial encounter; Left shoulder pain, unspecified chronicity Start: 03-23-2020 End: 03-23-2020 Patient encounter procedure Belgica Herrera Work Phone: [facility] Comment on above: Uncontrolled hypertension (Primary Dx); Diabetes mellitus due to underlying condition, uncontrolled, with hyperglycemia (HCC); Vitamin D deficiency; Obesity, Class II, BMI 35-39.9; Mixed hyperlipidemia; Encounter for immunization; Diabetic peripheral neuropathy associated with type 2 diabetes mellitus (HCC) Start: 03-03-2020 End: 03-03-2020 Telephone encounter Belgica Herrera Work Phone: [facility] Comment on above: Medication Problem Start: 02-28-2020 End: 02-28-2020 Telephone encounter Belgica Herrera Work Phone: [facility] Comment on above: Consult Start: 02-21-2020 End: 02-21-2020 Patient encounter procedure [facility] Provider [facility] Start: 02-21-2020 Results Only [facility] Provider [facility] Department Start: 02-21-2020 End: 02-21-2020 Telephone encounter Bunny (Greg) [facility] [place] Comment on above: Consult (CONSULTS TO ENT AND OPTHALMOLOG Y) Start: 02-20-2020 End: 02-20-2020 Patient encounter procedure Belgica Herrera Work Phone: [facility] Comment on above: Uncontrolled hypertension (Primary Dx); Diabetes mellitus due to underlying condition, uncontrolled, with hyperglycemia (HCC); Obesity, Class II, BMI 35-39.9; Chronic bilateral low back pain with sciatica, sciatica laterality unspecified; Marijuana use; Microalbuminuria; Vitamin D deficiency; Mixed hyperlipidemia; Elevated alkaline phosphatase level; Tinnitus aurium, bilateral; Dizziness; Dizziness and giddiness Start: 02-18-2020 End: 02-18-2020 Telephone encounter Belgica Herrera Work Phone: [facility] Comment on above: Results Start: 02-17-2020 End: 02-17-2020 Telephone encounter Bunny (Stock Patcher) [facility] [place] Comment on above: Appointment (CONSULT TO ORTHO PLACED) Results Appointment (CONSULT TO PHYSICAL THERAPY PLACED) Start: 02-17-2020 End: 02-17-2020 Subsequent hospital visit by physician [facility] Comment on above: Chronic bilateral low back pain with sci atica, sciatica laterality unspecified [M54.40, G89.29] Start: 02-14-2020 End: 02-14-2020 Patient encounter procedure Belgica Herrera Work Phone: [facility] Comment on above: Routine physical examination (Primary [...] Date Procedure Procedure Detail Performing Clinician Start: 11-29-2024 Glucose quantitative blood xcpt reagent strip Flori Hills MD Work Phone: Start: 11-29-2024 Glucose quantitative blood xcpt reagent strip Flori Hills MD Work Phone: Start: 11-29-2024 Comprehensive metabolic panel Flori Hills MD Work Phone: Start: 11-28-2024 Glucose quantitative blood xcpt reagent strip Flori Hills MD Work Phone: Start: 11-28-2024 Glucose quantitative blood xcpt reagent strip Flori Hills MD Work Phone: Start: 11-28-2024 Glucose quantitative blood xcpt reagent strip Flori Hills MD Work Phone: Start: 11-28-2024 Glucose quantitative blood xcpt reagent strip Flori Hills MD Work Phone: Start: 11-28-2024 Comprehensive metabolic panel Flori Hills MD Work Phone: Start: 11-28-2024 Drug screen quantitative vancomycin Omid Adames MD Work Phone: Start: 11-27-2024 Glucose quantitative blood xcpt reagent strip Flori Hills MD Work Phone: Start: 11-27-2024 LEGIONELLA AND STREPTOCOCCUS URINE ANTIGEN, ORDERABLE Flori Hills MD Work Phone: Start: 11-27-2024 URINE HOLD CUP Flori Hills MD Work Phone: Start: 11-27-2024 Urnls dip stick/tablet reagent auto microscopy Omid Adames MD Work Phone: Start: 11-27-2024 Iaad ia hepatitis b surface antigen Ailyn Christy MOBILE PHONE SALESPERSON - PAYROLL SECRETARY Work Phone: Start: 11-27-2024 End: 11-27-2024 Drug screen quantitative vancomycin Omid Adames MD Work Phone: Start: 11-27-2024 Glucose quantitative blood xcpt reagent strip Flori Hills MD Work Phone: Start: 11-27-2024 Glucose quantitative blood xcpt reagent strip Flori Hills MD Work Phone: Start: 11-27-2024 Bacteria identified in Blood by Culture Flori Hills MD Work Phone: Start: 11-27-2024 Comprehensive metabolic panel Flori Hills MD Work Phone: Start: 11-27-2024 Iaad ia hepatitis b surface antigen Ailyn Christy MOBILE PHONE SALESPERSON - PAYROLL SECRETARY Work Phone: Start: 11-26-2024 Glucose quantitative blood xcpt reagent strip Flori Hills MD Work Phone: Start: 11-26-2024 Respiratory pathogens DNA and RNA panel - Nasopharynx by BETO with non-probe detection Flori Hills MD Work Phone: Start: 11-26-2024 Glucose quantitative blood xcpt reagent strip Flori Hills MD Work Phone: Start: 11-26-2024 End: 11-26-2024 Comprehensive metabolic panel Flori Hills MD Work Phone: Start: 11-26-2024 Drug screen quantitative elzbieta Adames MD Work Phone: Start: 11-25-2024 Glucose quantitative blood xcpt reagent strip Omid Adames MD Work Phone: Start: 11-25-2024 Glucose quantitative blood xcpt reagent strip Omid Adames MD Work Phone: Start: 11-25-2024 Glucose quantitative blood xcpt reagent strip Omid Adames MD Work Phone: Start: 11-25-2024 Assay of lactate Omid Adames MD Work Phone: Start: 11-25-2024 SARS-COV-2, FLU A/B, AND RSV COMBO Omid Adames MD Work Phone: Start: 11-25-2024 End: 11-25-2024 Bacteria identified in Blood by Culture Omid Adames MD Work Phone: Start: 11-25-2024 Comprehensive metabolic panel Omid Adames MD Work Phone: Start: 11-25-2024 Radiologic exam chest single view Omid Adames MD Work Phone: Start: 11-25-2024 Ecg routine ecg w/least 12 lds trcg only w/o i&r Omid Adames MD Work Phone: Start: 07-12-2024 Echocardiography [facility] Start: 07-10-2024 Electrocardiogram [facility] Start: 05-13-2024 Sodium serum plasma or whole blood Artem Ahmadi MD Work Phone: Start: 05-13-2024 Colonoscopy flx dx w/collj spec when pfrmd Artem Ahmadi MD Work Phone: Start: 05-13-2024 End: 05-13-2024 Colonoscopy Artem Ahmadi MD Work Phone: Start: 12-29-2023 End: 12-29-2023 [facility] medical xm&eval comprhnsv estab pt 1/> Type 2 diabetes mellitus with both eyes affected by moderate nonproliferative retinopathy without macular edema, with long-term current use of insulin (HCC) Renetta Gannon MD Work Phone: Comment on above: Type 2 diabetes mellitus with both eyes affected by moderate nonproliferative retinopathy without macular edema, with long-term current use of insulin ([facility]) (Primary Dx); Pseudophakia of both eyes Start: [...] Start: 08-11-2021 Hemoglobin A1c/Hemoglobin.total in Blood Belgica L Je DO Work Phone: Start: 08-11-2021 Gluc bld gluc mntr dev cleared fda spec home use Belgica Brandon Vega DO Work Phone: Start: 08-09-2021 Mri pelvis w/o & w/contrast material Artem Ahmaid MD Work Phone: Start: 09-24-2020 Mri pelvis w/o & w/contrast material Artem Ahmadi MD Work Phone: Start: 07-24-2020 Colonoscopy Janie Pickett APRN.PAYROLL SECRETARY Work Phone: Start: 05-30-2020 PT ED PATIENT [...] DTaP/Tdap/Td Vaccines (2 - Td or Tdap) [facility] [place] Start: 10-19-2030 Urine microalbumin profile [facility] Start: 11-02-2027 PROSTATE CANCER SCREENING DISCUSSION PROSTATE CANCER SCREENING DISCUSSION [facility] Start: 11-02-2027 Prostate specific antigen measurement Prostate Cancer Screening Discussion [facility] Start: 05-13-2027 Screening for malignant neoplasm of colon [facility] Start: 01-19-2027 PROSTATE CANCER SCREENING DISCUSSION PROSTATE CANCER SCREENING DISCUSSION [facility] Start: 07-05-2026 PROSTATE CANCER SCREENING DISCUSSION PROSTATE CANCER SCREENING DISCUSSION [facility] Start: 04-09-2026 PROSTATE CANCER SCREENING DISCUSSION PROSTATE CANCER SCREENING DISCUSSION [facility] Start: 11-29-2025 Diabetes: Estimated Glomerular Filtration Rate for Kidney Health Diabetes: Estimated Glomerular Filtration Rate for [facility] Start: 11-26-2025 Hemoglobin A1c measurement Diabetes: Hemoglobin A1C Start: 07-24-2025 Complete blood count Hemoglobin/Hematocrit [facility] Start: 07-24-2025 Creatinine measurement Serum Creatinine [facility] Start: 07-16-2025 Complete blood count Hemoglobin/Hematocrit [facility] Start: 07-16-2025 Creatinine measurement Serum Creatinine [facility] Start: 07-12-2025 Complete blood count Hemoglobin/Hematocrit [facility] Start: 07-12-2025 Creatinine measurement Serum Creatinine [facility] Start: 07-11-2025 Diabetes: Urine Albumin-Creatinine Ratio for Kidney Health Diabetes: Urine Albumin-Creatinine Ratio for Kidney [facility] Start: 07-10-2025 Complete blood count Hemoglobin/Hematocrit [facility] Start: 07-10-2025 Creatinine measurement Serum Creatinine [facility] Start: 05-13-2025 Complete blood count Hemoglobin/Hematocrit [facility] Start: 05-13-2025 Screening for malignant neoplasm of colon [facility] Start: 04-26-2025 Complete blood count Hemoglobin/Hematocrit [facility] Start: 04-26-2025 Creatinine measurement Serum Creatinine [facility] Start: 04-26-2025 Diabetes: Estimated Glomerular Filtration Rate for Kidney Health Diabetes: Estimated Glomerular Filtration Rate for [facility] Start: 02-16-2025 LIPID SCREEN LIPID SCREEN [facility] Start: 02-16-2025 PROSTATE CANCER SCREENING DISCUSSION PROSTATE CANCER SCREENING DISCUSSION [facility] Start: 01-23-2025 Complete blood count Hemoglobin/Hematocrit [facility] Start: 01-23-2025 Creatinine measurement Serum Creatinine [facility] Start: 01-23-2025 Diabetes: Urine Albumin-Creatinine Ratio for Kidney Health Diabetes: Urine Albumin-Creatinine Ratio for Kidney [facility] Start: 12-28-2024 Glaucoma screening [facility] Start: 2024 Influenza vaccination Start: 11-05-2024 BP Controlled (<130/80) BP Controlled (<130/80) [facility] Start: 10-17-2024 Complete blood count Hemoglobin/Hematocrit [facility] Start: 10-17-2024 Creatinine measurement Serum Creatinine [facility] Start: 10-17-2024 Diabetes: Estimated Glomerular Filtration Rate for Kidney Health Diabetes: Estimated Glomerular Filtration Rate for [facility] Start: 10-09-2024 End: 10-09-2024 Patient encounter procedure 10/09/2024 3:45 PM EDT Office Visit [facility] [place] [address] [place] [address] Jose Dudley MD [address] [place] [address] follow-up 3m [facility] Comment on above: follow-up Start: 10-09-2024 End: 07-10-2025 25-hydroxyvitamin D3 [Mass/volume] in Serum or Plasma VITAMIN D 25 HYDROXY Lab Routine Vitamin D deficiency Expected: 10/09/2024, Expires: 07/10/2025 [facility] Comment on above: Expected: 10/09/2024, Expires: Start: 10-09-2024 End: 07-10-2025 CBC W Auto Differential panel - Blood COMPLETE BLOOD COUNT AND DIFFERENTIAL Lab Routine Anemia of renal disease Expected: 10/09/2024, Expires: 07/10/2025 [facility] Work Phone: Comment on above: Expected: 10/09/2024, Expires: Start: 10-09-2024 End: 07-10-2025 Magnesium [Mass/volume] in Serum or Plasma MAGNESIUM Lab Routine Stage 5 chronic kidney disease not on chronic dialysis (HCC) Expected: 10/09/2024, Expires: 07/10/2025 [facility] Comment on above: Expected: 10/09/2024, Expires: Start: 10-09-2024 End: 01-08-2025 Microalbumin/Creatinine [Mass Ratio] in Urine ALBUMIN/CREATININE RATIO, URINE Lab Routine Other proteinuria Expected: 10/09/2024, Expires: 01/08/2025 [facility] Comment on above: Expected: 10/09/2024, Expires: Start: 10-09-2024 End: 07-10-2025 Parathyrin.intact [Mass/volume] in Serum or Plasma PTH INTACT Lab Routine Stage 5 chronic kidney disease not on chronic dialysis (HCC) Expected: 10/09/2024, Expires: 07/10/2025 [facility] Comment on above: Expected: 10/09/2024, Expires: Start: 10-09-2024 End: 07-10-2025 Renal function 2000 panel - Serum or Plasma RENAL FUNCTION PANEL Lab Routine Stage 5 chronic kidney disease not on chronic dialysis (HCC) Expected: 10/09/2024, Expires: 07/10/2025 [facility] Comment on above: Expected: 10/09/2024, Expires: Start: 10-09-2024 End: 07-10-2025 Urate [Mass/volume] in Serum or Plasma URIC ACID Lab Routine Stage 5 chronic kidney disease not on chronic dialysis (HCC) Expected: 10/09/2024, Expires: 07/10/2025 [facility] Comment on above: Expected: 10/09/2024, Expires: Start: 10-09-2024 End: 01-08-2025 Urinalysis complete panel - Urine URINALYSIS, WITH MICROSCOPIC Lab Routine Stage 5 chronic kidney disease not on chronic dialysis (HCC) Expected: 10/09/2024, Expires: 01/08/2025 [facility] Comment on above: Expected: 10/09/2024, Expires: Start: 10-08-2024 Complete blood count Hemoglobin/Hematocrit [facility] Start: 10-08-2024 Creatinine measurement Serum Creatinine [facility] Start: 10-05-2024 Hemoglobin A1c measurement Diabetes: Hemoglobin A1C Start: 09-30-2024 Diabetes: Estimated Glomerular Filtration Rate for Kidney Health Diabetes: Estimated Glomerular Filtration Rate for Kidney Health Start: 09-27-2024 End: 09-27-2024 Patient encounter procedure 09/27/2024 2:45 PM EDT Office Visit [facility] [place] [address] [facility] [place] [place] [address] Renetta Gannon MD [address] [facility] [place] [place] [place] [address] RTC 9 months diabetic check [facility] [place] Comment on above: RTC 9 months diabetic check Start: 07-24-2024 End: 10-23-2024 25-hydroxyvitamin D3 [Mass/volume] in Serum or Plasma VITAMIN D 25 HYDROXY Lab Routine Stage 3b chronic kidney disease (HCC) Vitamin D deficiency Expected: 07/24/2024, Expires: 10/23/2024 [facility] Comment on above: Expected: 07/24/2024, Expires: Start: 07-24-2024 End: 10-23-2024 CBC W Auto Differential panel - Blood COMPLETE BLOOD COUNT AND DIFFERENTIAL Lab Routine Anemia of renal disease Stage 3b chronic kidney disease (HCC) Expected: 07/24/2024, Expires: 10/23/2024 [facility] Comment on above: Expected: 07/24/2024, Expires: Start: 07-24-2024 End: 10-23-2024 Magnesium [Mass/volume] in Serum or Plasma MAGNESIUM Lab Routine Stage 3b chronic kidney disease (HCC) Expected: 07/24/2024, Expires: 10/23/2024 [facility] Comment on above: Expected: 07/24/2024, Expires: Start: 07-24-2024 End: 10-23-2024 Microalbumin/Creatinine [Mass Ratio] in Urine ALBUMIN/CREATININE RATIO, URINE Lab Routine Stage 3b chronic kidney disease (HCC) Other proteinuria Expected: 07/24/2024, Expires: 10/23/2024 [facility] Comment on above: Expected: 07/24/2024, Expires: Start: 07-24-2024 End: 10-23-2024 Parathyrin.intact [Mass/volume] in Serum or Plasma PTH INTACT Lab Routine Stage 3b chronic kidney disease (HCC) Expected: 07/24/2024, Expires: 10/23/2024 [facility] Comment on above: Expected: 07/24/2024, Expires: Start: 07-24-2024 End: 10-23-2024 Renal function 2000 panel - Serum or Plasma RENAL FUNCTION PANEL Lab Routine Stage 3b chronic kidney disease (HCC) Expected: 07/24/2024, Expires: 10/23/2024 [facility] Comment on above: Expected: 07/24/2024, Expires: Start: 07-24-2024 End: 10-23-2024 Urate [Mass/volume] in Serum or Plasma URIC ACID Lab Routine Stage 3b chronic kidney disease (HCC) Expected: 07/24/2024, Expires: 10/23/2024 [facility] Comment on above: Expected: 07/24/2024, Expires: Start: 07-24-2024 End: 10-23-2024 Urinalysis complete panel - Urine URINALYSIS, WITH MICROSCOPIC Lab Routine Stage 3b chronic kidney disease (HCC) Expected: 07/24/2024, Expires: 10/23/2024 [facility] Comment on above: Expected: 07/24/2024, Expires: Start: 07-12-2024 End: 07-12-2024 Renal biopsy prq trocar/needle BIOPSY KIDNEY PERCUTANEOUS Kidney disease 07/12/2024 1:53 PM EDT [facility] Start: 07-11-2024 End: 10-10-2024 PSA/PROSTATE SPECIFIC ANTIGEN SCREENING PSA/PROSTATE SPECIFIC ANTIGEN SCREENING Lab Routine Nocturia Benign prostatic hyperplasia with nocturia Screening PSA (prostate specific antigen) Expected: 07/11/2024 (Approximate), Expires: 10/10/2024 [facility] Work Phone: Comment on above: Expected: 07/11/2024 (Approximate), Expi res: 10/10/2024 Start: 07-10-2024 End: 07-10-2024 Patient encounter procedure [facility] [place] Comment on above: 6 mo f/u Start: 07-04-2024 End: 10-03-2024 25-hydroxyvitamin D3 [Mass/volume] in Serum or Plasma VITAMIN D 25 HYDROXY Lab Routine Stage 3b chronic kidney disease (HCC) Vitamin D deficiency Expected: 07/04/2024, Expires: 10/03/2024 [facility] Comment on above: Expected: 07/04/2024, Expires: Start: 07-04-2024 End: 10-03-2024 CBC W Auto Differential panel - Blood COMPLETE BLOOD COUNT AND DIFFERENTIAL Lab Routine Anemia of renal disease Stage 3b chronic kidney disease (HCC) Expected: 07/04/2024, Expires: 10/03/2024 [facility] Comment on above: Expected: 07/04/2024, Expires: Start: 07-04-2024 End: 10-03-2024 Magnesium [Mass/volume] in Serum or Plasma MAGNESIUM Lab Routine Stage 3b chronic kidney disease (HCC) Expected: 07/04/2024, Expires: 10/03/2024 [facility] Comment on above: Expected: 07/04/2024, Expires: Start: 07-04-2024 End: 10-03-2024 Microalbumin/Creatinine [Mass Ratio] in Urine ALBUMIN/CREATININE RATIO, URINE Lab Routine Stage 3b chronic kidney disease (HCC) Other proteinuria Expected: 07/04/2024, Expires: 10/03/2024 [facility] Work Phone: Comment on above: Expected: 07/04/2024, Expires: Start: 07-04-2024 End: 10-03-2024 Parathyrin.intact [Mass/volume] in Serum or Plasma PTH INTACT Lab Routine Stage 3b chronic kidney disease (HCC) Chronic kidney disease-mineral and bone disorder Expected: 07/04/2024, Expires: 10/03/2024 [facility] Comment on above: Expected: 07/04/2024, Expires: Start: 07-04-2024 End: 10-03-2024 Renal function 2000 panel - Serum or Plasma RENAL FUNCTION PANEL Lab Routine Stage 3b chronic kidney disease (HCC) Expected: 07/04/2024, Expires: 10/03/2024 [facility] Comment on above: Expected: 07/04/2024, Expires: Start: 07-04-2024 End: 10-03-2024 Urate [Mass/volume] in Serum or Plasma URIC ACID Lab Routine Stage 3b chronic kidney disease (HCC) Expected: 07/04/2024, Expires: 10/03/2024 [facility] [facility] Comment on above: Expected: 07/04/2024, Expires: Start: 07-04-2024 End: 10-03-2024 Urinalysis complete panel - Urine URINALYSIS, WITH MICROSCOPIC Lab Routine Stage 3b chronic kidney disease (HCC) Other proteinuria Expected: 07/04/2024, Expires: 10/03/2024 [facility] Comment on above: Expected: 07/04/2024, Expires: Start: 06-12-2024 Creatinine measurement Serum Creatinine [facility] Start: 06-03-2024 Complete blood count Hemoglobin/Hematocrit [facility] Start: 05-24-2024 Diabetes: Urine Albumin-Creatinine Ratio for Kidney [facility] Diabetes: Urine Albumin-Creatinine Ratio for Kidney [facility] Start: 05-24-2024 Hepatitis B screening Urine Albumin:Creatinine Ratio [facility] Start: 05-23-2024 Complete blood count Hemoglobin/Hematocrit [facility] Start: 05-23-2024 Creatinine measurement Serum Creatinine [facility] Start: 05-13-2024 End: 05-13-2024 Patient encounter procedure [facility] Start: 04-07-2024 Hemoglobin A1c measurement HbA1C [facility] Start: 04-03-2024 Medicare Advantage Annual Wellness Visit Medicare Advantage Annual Wellness Visit Start: 01-24-2024 End: 01-24-2024 Patient encounter procedure 01/24/2024 1:30 PM EDT Office Visit [facility] [address] [place] [address] Jose Dudley MD [address] [facility] [address] [place] [address] 4 mo f/u [facility] Comment on above: 4 mo f/u Start: 01-22-2024 End: 01-22-2024 Patient encounter procedure 01/22/2024 1:45 PM EDT Office Visit Urology [address] [place] [address] Noé Kennedy MD [address] [place] [address] 6 month folllow up psa prior Urology Comment on above: 6 month folllow up psa prior Start: 01-19-2024 End: 04-19-2024 25-hydroxyvitamin D3 [Mass/volume] in Serum or Plasma VITAMIN D 25 HYDROXY Lab Routine Anemia of renal disease Stage 3b chronic kidney disease (HCC) Vitamin D deficiency Other proteinuria Expected: 01/19/2024, Expires: 04/19/2024 [facility] Comment on above: Expected: 01/19/2024, Expires: Start: 01-19-2024 End: 04-19-2024 CBC W Auto Differential panel - Blood COMPLETE BLOOD COUNT AND DIFFERENTIAL Lab Routine Anemia of renal disease Stage 3b chronic kidney disease (HCC) Vitamin D deficiency Other proteinuria Expected: 01/19/2024, Expires: 04/19/2024 [facility] Comment on above: Expected: 01/19/2024, Expires: Start: 01-19-2024 End: 04-19-2024 Magnesium [Mass/volume] in Serum or Plasma MAGNESIUM Lab Routine Anemia of renal disease Stage 3b chronic kidney disease (HCC) Vitamin D deficiency Other proteinuria Expected: 01/19/2024, Expires: 04/19/2024 [facility] Comment on above: Expected: 01/19/2024, Expires: Start: 01-19-2024 End: 04-19-2024 Microalbumin/Creatinine [Mass Ratio] in Urine ALBUMIN/CREATININE RATIO, URINE Lab Routine Anemia of renal disease Stage 3b chronic kidney disease (HCC) Vitamin D deficiency Other proteinuria Expected: 01/19/2024, Expires: 04/19/2024 [facility] Work Phone: Comment on above: Expected: 01/19/2024, Expires: Start: 01-19-2024 End: 04-19-2024 Parathyrin.intact [Mass/volume] in Serum or Plasma PTH INTACT Lab Routine Anemia of renal disease Stage 3b chronic kidney disease (HCC) Vitamin D deficiency Other proteinuria Expected: 01/19/2024, Expires: 04/19/2024 [facility] Comment on above: Expected: 01/19/2024, Expires: Start: 01-19-2024 End: 04-19-2024 Renal function 2000 panel - Serum or Plasma RENAL FUNCTION PANEL Lab Routine Anemia of renal disease Stage 3b chronic kidney disease (HCC) Vitamin D deficiency Other proteinuria Expected: 01/19/2024, Expires: 04/19/2024 [facility] Comment on above: Expected: 01/19/2024, Expires: Start: 01-19-2024 End: 04-19-2024 Urate [Mass/volume] in Serum or Plasma URIC ACID Lab Routine Anemia of renal disease Stage 3b chronic kidney disease (HCC) Vitamin D deficiency Other proteinuria Expected: 01/19/2024, Expires: 04/19/2024 [facility] Comment on above: Expected: 01/19/2024, Expires: Start: 01-19-2024 End: 04-19-2024 Urinalysis complete panel - Urine URINALYSIS, WITH MICROSCOPIC Lab Routine Anemia of renal disease Stage 3b chronic kidney disease (HCC) Vitamin D deficiency Other proteinuria Expected: 01/19/2024, Expires: 04/19/2024 [facility] Comment on above: Expected: 01/19/2024, Expires: Start: 01-08-2024 End: 04-08-2024 PSA/PROSTATE SPECIFIC ANTIGEN SCREENING PSA/PROSTATE SPECIFIC ANTIGEN SCREENING Lab Routine Nocturia Benign prostatic hyperplasia with nocturia Screening PSA (prostate specific antigen) Expected: 01/08/2024 (Approximate), Expires: 04/08/2024 [facility] Work Phone: Comment on above: Expected: 01/08/2024 (Approximate), Expi res: 04/08/2024 Start: 12-30-2023 Glaucoma screening Dilated Retinal Exam [facility] Start: 12-30-2023 Hepatitis C antibody, confirmatory test Dilated Retinal Exam [facility] Start: 12-29-2023 End: 12-29-2023 Patient encounter procedure 12/29/2023 2:45 PM EDT Office Visit [facility] [address] [place] [id number] Renetta Gannon MD [address] [place] [address] RTC 9 months diabetic check [facility] Comment on above: RTC 9 months diabetic check Start: 12-24-2023 Annual PCP Team Chronic Disease Visit Annual PCP Team Chronic Disease Visit [facility] Start: 12-03-2023 Covid-19 Vaccine ( season) Covid-19 Vaccine () [facility] Start: 12-03-2023 Covid-19 Vaccine () Covid-19 Vaccine () [facility] Start: 12-03-2023 Influenza vaccination [facility] Start: 11-21-2023 End: 11-21-2023 Home visit 11/21/2023 2:30 PM EDT OT/PT/Speech Visit [facility] [address] [place] [address] Zafar Aguilar, PT, DPT Post laminectomy/D/C FROM [facility] Comment on above: [facility]ctomy/D[facility] Start: 11-16-2023 End: 11-16-2023 Home visit [facility] Comment on above: [id number] [place] post laminectomy. DM Wound has a slight amount of drainage, pt on cephalexin. Wound assessment. ?disc dc vs agency dc? Check on therapy plan. Start: 11-10-2023 End: 11-10-2023 Home visit [facility] Comment on above: [id number] [place] post laminectomy. DM Wound has a slight amount of drainage, pt was on cephalexin. Wound assessment. Next to last SN vs, check on therapy plan. ?NOMNC? Start: 11-07-2023 End: 11-07-2023 Home visit [facility] Comment on above: [id number] [place] post laminectomy. DM Wound has a slight amount of drainage, pt on cephalexin. Wound assessment. Please see SOC notes for full info. Start: 11-05-2023 ANNUAL PCP TEAM CHRONIC DISEASE VISIT ANNUAL PCP TEAM CHRONIC DISEASE VISIT [facility] Start: 11-03-2023 End: 11-03-2023 Home visit [facility] Comment on above: [id number] [place] post laminectomy. DM Wound has a slight amount of drainage, pt was on cephalexin. Wound assessment. Please see SOC notes for full info. Start: 11-02-2023 Complete blood count Hemoglobin/Hematocrit [facility] Start: 11-02-2023 Creatinine measurement Serum Creatinine [facility] Start: 11-02-2023 HEMOGLOBIN/HEMATOCRIT HEMOGLOBIN/HEMATOCRIT [facility] Start: 11-02-2023 Hepatitis B surface antibody level LDL CHOLESTEROL [facility] Start: 11-02-2023 SERUM CREATININE SERUM CREATININE [facility] Start: 10-31-2023 End: 10-31-2023 Home visit [facility] Comment on above: [id number] [place] post laminectomy. DM Wound has a slight amount of drainage, pt was on cephalexin. Wound assessment. Please see SOC notes for full info. Start: 10-30-2023 End: 10-30-2023 Patient encounter procedure 10/30/2023 11:00 AM EDT Office Visit Endocrinology [address] [place] [address] Ginny Montalvo, MOBILE PHONE SALESPERSON.[employer] SECRETARY [address] [place] [address] diabetes follow up Endocrinology Comment on above: diabetes follow up Start: 10-28-2023 End: 10-28-2023 Home visit 10/28/2023 12:00 PM EDT Home Care Visit [facility] [address] [place] [address] Zohaib Abel, PT [address] [place] [address] CONFIRMED FOR SAT 10/27 PTE 10/22-10/26 - STASP, DELAY CALL MADE Confirmed 11:30 to 12 [facility] Comment on above: CONFIRMED FOR SAT 10/27 PTE 10/02-10/26 - STASP, DELAY CALL MADE Confirmed 11:30 to 12 Start: 10-27-2023 End: 10-27-2023 Home visit [facility] Comment on above: [id number] PTE - KNUPP [id number] OTE 6 - FERNANDA Start: 10-26-2023 End: 10-26-2023 Home visit [facility] Comment on above: [id number] [place] post laminectomy. Wound bartholomew s a slight amount of drainage, pt on cephalexin. Wound assessment and labs due. Please see SOC notes for full info. Start: 10-25-2023 End: 10-25-2023 Home visit [facility] Comment on above: [id number] OTE PASS TO Sena MICHAEL [id number] PTE [place] Start: 10-24-2023 End: 10-24-2023 Home visit [facility] Comment on above: [id number] PTE [place] [id number] OTE Start: 10-23-2023 End: 10-23-2023 Home visit [facility] Comment on above: [id number] PTE [id number] OTE [id number] HAIR MIXER [id number] P[address] [facility] Start: 10-22-2023 Hepatitis C antibody, confirmatory test DILATED RETINAL EXAM [facility] Start: 10-22-2023 End: 10-22-2023 Patient encounter procedure [facility] Comment on above: [id number] CM: Richard HINDS [id number] CM: Richard HINDS M104- 10/19- DID NOT CONFIRM Radiculopathy, lumbar region Start: 10-20-2023 End: 10-20-2023 Patient encounter procedure Jorge Luis Kim Comment on above: RTC 9 months diabetic check Start: 09-29-2023 ANNUAL PCP TEAM CHRONIC DISEASE VISIT ANNUAL PCP TEAM CHRONIC DISEASE VISIT [facility] Start: 09-22-2023 End: 06-21-2024 25-hydroxyvitamin D3 [Mass/volume] in Serum or Plasma VITAMIN D 25 HYDROXY Lab Routine Vitamin D deficiency Expected: 09/22/2023, Expires: 06/21/2024 [facility] Work Phone: Comment on above: Expected: 09/22/2023, Expires: 5 Start: 09-22-2023 End: 12-22-2023 ALBUMIN/CREAT RATIO RND UR ALBUMIN/CREAT RATIO RND UR Lab Routine Other proteinuria Expected: 09/22/2023, Expires: 12/22/2023 [facility] Work Phone: Comment on above: Expected: 09/22/2023, Expires: 4 Start: 09-22-2023 End: 06-21-2024 CBC W Auto Differential panel - Blood CBC + DIFF Lab Routine Anemia of renal disease Expected: 09/22/2023, Expires: 06/21/2024 [facility] Work Phone: Comment on above: Expected: 09/22/2023, Expires: 5 Start: 09-22-2023 End: 06-21-2024 Magnesium [Mass/volume] in Serum or Plasma MAGNESIUM BLD Lab Routine Stage 3b chronic kidney disease (HCC) Expected: 09/22/2023, Expires: 06/21/2024 [facility] Work Phone: Comment on above: Expected: 09/22/2023, Expires: 5 Start: 09-22-2023 End: 06-21-2024 Parathyrin.intact [Mass/volume] in Serum or Plasma PTH INTACT BLD Lab Routine Stage 3b chronic kidney disease (HCC) Expected: 09/22/2023, Expires: 06/21/2024 [facility] Work Phone: Comment on above: Expected: 09/22/2023, Expires: 5 Start: 09-22-2023 End: 06-21-2024 Renal function 2000 panel - Serum or Plasma RENAL FUNCTION PANEL Lab Routine Stage 3b chronic kidney disease (HCC) Expected: 09/22/2023, Expires: 06/21/2024 [facility] Work Phone: Comment on above: Expected: 09/22/2023, Expires: 5 Start: 09-22-2023 End: 06-21-2024 Urate [Mass/volume] in Serum or Plasma URIC ACID BLOOD Lab Routine Stage 3b chronic kidney disease (HCC) Expected: 09/22/2023, Expires: 06/21/2024 [facility] Work Phone: Comment on above: Expected: 09/22/2023, Expires: 5 Start: 09-22-2023 End: 12-22-2023 Urinalysis complete panel - Urine URINALYSIS, WITH MICROSCOPIC Lab Routine Stage 3b chronic kidney disease (HCC) Expected: 09/22/2023, Expires: 12/22/2023 [facility] Work Phone: Comment on above: Expected: 09/22/2023, Expires: 4 Start: 09-17-2023 ANNUAL PCP TEAM CHRONIC DISEASE VISIT ANNUAL PCP TEAM CHRONIC DISEASE VISIT [facility] Start: 09-17-2023 SERUM CREATININE SERUM CREATININE [facility] Start: 09-16-2023 HEMOGLOBIN/HEMATOCRIT HEMOGLOBIN/HEMATOCRIT [facility] Start: 08-21-2023 Hemoglobin A1c measurement HbA1C [facility] Start: 08-13-2023 3 comp foot exam completed DIABETIC FOOT EXAM [facility] Start: 08-13-2023 ANNUAL PCP TEAM CHRONIC DISEASE VISIT ANNUAL PCP TEAM CHRONIC DISEASE VISIT [facility] Start: 08-13-2023 COVID-19 VACCINE (#1) COVID-19 VACCINE (#1) [facility] Comment on above: Postponed from 05/31/1961 (Declined at t his time) Start: 08-13-2023 Diabetic foot examination Diabetic Foot Exam [facility] Start: 08-13-2023 PNEUMOCOCCAL (2 - PCV) PNEUMOCOCCAL (2 - PCV) [facility] Start: 08-13-2023 Pneumococcal vaccination [facility] Start: 08-13-2023 Pneumococcal Vaccine: 50+ (2 of 2 - PCV) Pneumococcal Vaccine: 50+ (2 of 2 - PCV) [facility] Start: 08-13-2023 Pneumococcal Vaccine: 50+ Years (2 of 2 - PCV) Pneumococcal Vaccine: 50+ Years (2 of 2 - PCV) Start: 07-15-2023 Hepatitis C antibody, confirmatory test DILATED RETINAL EXAM [facility] Start: 07-12-2023 End: 10-11-2023 PSA/PROSTATE SPECIFIC ANTIGEN SCREENING PSA/PROSTATE SPECIFIC ANTIGEN SCREENING Lab Routine Nocturia Benign prostatic hyperplasia with nocturia Screening PSA (prostate specific antigen) Expected: 07/12/2023, Expires: 10/11/2023 [facility] Work Phone: Comment on above: Expected: 07/12/2023, Expires: 4 Start: 06-30-2023 ANNUAL PCP TEAM CHRONIC DISEASE VISIT ANNUAL PCP TEAM CHRONIC DISEASE VISIT [facility] Start: 06-28-2023 Hepatitis B surface antibody level LDL CHOLESTEROL [facility] Start: 06-28-2023 SERUM CREATININE SERUM CREATININE [facility] Start: 06-23-2023 Influenza vaccination LUNG CANCER SCREENING [facility] Start: 06-23-2023 Screening for malignant neoplasm of lung Lung Cancer Screening [facility] Start: 06-20-2023 End: 09-19-2023 25-hydroxyvitamin D3 [Mass/volume] in Serum or Plasma VITAMIN D 25 HYDROXY Lab Routine Stage 3a chronic kidney disease (HCC) Hypertension, essential Vitamin D deficiency Expected: 06/20/2023, Expires: 09/19/2023 [facility] Work Phone: Comment on above: Expected: 06/20/2023, Expires: 4 Start: 06-20-2023 End: 09-19-2023 ALBUMIN/CREAT RATIO RND UR ALBUMIN/CREAT RATIO RND UR Lab Routine Stage 3a chronic kidney disease (HCC) Hypertension, essential Other proteinuria Expected: 06/20/2023, Expires: 09/19/2023 [facility] Work Phone: Comment on above: Expected: 06/20/2023, Expires: 4 Start: 06-20-2023 End: 09-19-2023 CBC W Auto Differential panel - Blood CBC + DIFF Lab Routine Stage 3a chronic kidney disease (HCC) Hypertension, essential Expected: 06/20/2023, Expires: 09/19/2023 [facility] Work Phone: Comment on above: Expected: 06/20/2023, Expires: 4 Start: 06-20-2023 End: 09-19-2023 Magnesium [Mass/volume] in Serum or Plasma MAGNESIUM BLD Lab Routine Stage 3a chronic kidney disease (HCC) Hypertension, essential Expected: 06/20/2023, Expires: 09/19/2023 [facility] Work Phone: Comment on above: Expected: 06/20/2023, Expires: 4 Start: 06-20-2023 End: 09-19-2023 Parathyrin.intact [Mass/volume] in Serum or Plasma PTH INTACT BLD Lab Routine Stage 3a chronic kidney disease (HCC) Hypertension, essential Secondary hyperparathyroidism (HCC) Expected: 06/20/2023, Expires: 09/19/2023 [facility] Work Phone: Comment on above: Expected: 06/20/2023, Expires: 4 Start: 06-20-2023 End: 09-19-2023 Renal function 2000 panel - Serum or Plasma RENAL FUNCTION PANEL Lab Routine Stage 3a chronic kidney disease (HCC) Hypertension, essential Expected: 06/20/2023, Expires: 09/19/2023 [facility] Work Phone: Comment on above: Expected: 06/20/2023, Expires: 4 Start: 06-20-2023 End: 09-19-2023 Urate [Mass/volume] in Serum or Plasma URIC ACID BLOOD Lab Routine Stage 3a chronic kidney disease (HCC) Hypertension, essential Expected: 06/20/2023, Expires: 09/19/2023 [facility] Work Phone: Comment on above: Expected: 06/20/2023, Expires: 4 Start: 06-20-2023 End: 09-19-2023 Urinalysis complete panel - Urine URINALYSIS, WITH MICROSCOPIC Lab Routine Stage 3a chronic kidney disease (HCC) Hypertension, essential Other proteinuria Expected: 06/20/2023, Expires: 09/19/2023 [facility] Work Phone: Comment on above: Expected: 06/20/2023, Expires: Start: 06-02-2023 HEMOGLOBIN/HEMATOCRIT HEMOGLOBIN/HEMATOCRIT [facility] Start: 06-02-2023 SERUM CREATININE SERUM CREATININE [facility] Start: 05-18-2023 ANNUAL PCP TEAM CHRONIC DISEASE VISIT ANNUAL PCP TEAM CHRONIC DISEASE VISIT [facility] Start: 05-09-2023 End: 07-09-2023 ALBUMIN/CREAT RATIO RND UR ALBUMIN/CREAT RATIO RND UR Lab Routine Diabetes mellitus due to underlying condition, uncontrolled, with hyperglycemia (HCC) Expected: 05/09/2023, Expires: 07/09/2023 [facility] Work Phone: Comment on above: Expected: 05/09/2023, Expires: Start: 04-13-2023 ANNUAL PCP TEAM CHRONIC DISEASE VISIT ANNUAL PCP TEAM CHRONIC DISEASE VISIT [facility] Start: 04-03-2023 Medicare Advantage Annual Wellness Visit Medicare Advantage Annual Wellness Visit Start: 04-01-2023 SERUM CREATININE SERUM CREATININE [facility] Start: 03-21-2023 Hepatitis B surface antibody level LDL CHOLESTEROL [facility] Start: 03-01-2023 ANNUAL PCP TEAM CHRONIC DISEASE VISIT ANNUAL PCP TEAM CHRONIC DISEASE VISIT [facility] Start: 02-16-2023 DIABETES SCREEN DIABETES SCREEN [facility] Start: 02-12-2023 End: 04-14-2023 ALBUMIN/CREAT RATIO RND UR ALBUMIN/CREAT RATIO RND UR Lab Routine Microalbuminuria Expected: 02/12/2023, Expires: 04/14/2023 [facility] Work Phone: Comment on above: Expected: 02/12/2023, Expires: Start: 02-01-2023 Hemoglobin A1c measurement HbA1C [facility] Start: 02-01-2023 Hemoglobin A1c/Hemoglobin.total in Blood HBA1C [facility] Start: 01-26-2023 SERUM CREATININE SERUM CREATININE [facility] Start: 01-23-2023 Hepatitis B screening URINE ALBUMIN:CREATININE RATIO [facility] Start: 01-20-2023 Hepatitis B surface antibody level LDL CHOLESTEROL [facility] Start: 01-20-2023 SERUM CREATININE SERUM CREATININE [facility] Start: 01-18-2023 SERUM CREATININE SERUM CREATININE [facility] Start: 01-17-2023 SERUM CREATININE SERUM CREATININE [facility] Start: 01-03-2023 ANNUAL PCP TEAM CHRONIC DISEASE VISIT ANNUAL PCP TEAM CHRONIC DISEASE VISIT [facility] Start: 01-03-2023 Hepatitis B surface antibody level LDL CHOLESTEROL [facility] Start: 01-03-2023 SERUM CREATININE SERUM CREATININE [facility] Start: 12-06-2022 End: 02-05-2023 Carcinoembryonic Ag [Mass/volume] in Serum or Plasma CEA BLD Lab Routine History of rectal cancer Expected: 12/06/2022 (Approximate), Expires: 02/05/2023 [facility] Work Phone: Comment on above: Expected: 12/06/2022 (Approximate), Expi res: 02/05/2023 Start: 12-06-2022 End: 02-05-2023 CBC W Auto Differential panel - Blood CBC + DIFF Lab Routine History of rectal cancer Expected: 12/06/2022 (Approximate), Expires: 02/05/2023 [facility] Work Phone: Comment on above: Expected: 12/06/2022 (Approximate), Expi res: 02/05/2023 Start: 12-06-2022 End: 02-05-2023 Comprehensive metabolic 2000 panel - Serum or Plasma COMP METABOLIC PANEL Lab Routine History of rectal cancer Expected: 12/06/2022 (Approximate), Expires: 02/05/2023 [facility] Work Phone: Comment on above: Expected: 12/06/2022 (Approximate), Expi res: 02/05/2023 Start: 2022 Covid-19 Vaccine () Covid-19 Vaccine () [facility] Start: 2022 Influenza vaccination [facility] Start: 11-05-2022 ANNUAL PCP TEAM CHRONIC DISEASE VISIT ANNUAL PCP TEAM CHRONIC DISEASE VISIT [facility] Start: 11-05-2022 Hepatitis C antibody, confirmatory test DILATED RETINAL EXAM [facility] Start: 10-05-2022 ANNUAL PCP TEAM CHRONIC DISEASE VISIT ANNUAL PCP TEAM CHRONIC DISEASE VISIT [facility] Start: 10-05-2022 BP CONTROLLED (<130/80) BP CONTROLLED (<130/80) [facility] Start: 10-05-2022 COLORECTAL CANCER SCREENING COLORECTAL CANCER SCREENING [facility] Comment on above: Postponed from 12/01/2004 (Declined at t his time) Start: 09-29-2022 Hemoglobin A1c/Hemoglobin.total in Blood HBA1C [facility] Start: 09-20-2022 ANNUAL PCP TEAM CHRONIC DISEASE VISIT ANNUAL PCP TEAM CHRONIC DISEASE VISIT [facility] Start: 09-20-2022 Hepatitis B surface antibody level LDL CHOLESTEROL [facility] Start: 09-06-2022 HEMOGLOBIN/HEMATOCRIT HEMOGLOBIN/HEMATOCRIT [facility] Start: 08-15-2022 Hemoglobin A1c/Hemoglobin.total in Blood HBA1C [facility] Start: 08-12-2022 End: 05-09-2023 25-hydroxyvitamin D3 [Mass/volume] in Serum or Plasma VITAMIN D 25 HYDROXY Lab Routine Vitamin D deficiency Expected: 08/12/2022, Expires: 05/09/2023 [facility] Work Phone: Comment on above: Expected: 08/12/2022, Expires: 4 Start: 08-12-2022 End: 10-12-2022 CBC W Auto Differential panel - Blood CBC + DIFF Lab Routine Screening for deficiency anemia Expected: 08/12/2022, Expires: 10/12/2022 [facility] Work Phone: Comment on above: Expected: 08/12/2022, Expires: 3 Start: 08-12-2022 End: 10-12-2022 Comprehensive metabolic 2000 panel - Serum or Plasma COMP METABOLIC PANEL Lab Routine Hypertension, essential Expected: 08/12/2022, Expires: 10/12/2022 [facility] Work Phone: Comment on above: Expected: 08/12/2022, Expires: 3 Start: 08-12-2022 End: 10-12-2022 Hemoglobin A1c in Blood HGB A1C Lab Routine Diabetes mellitus due to underlying condition, uncontrolled, with hyperglycemia (HCC) Expected: 08/12/2022, Expires: 10/12/2022 [facility] Work Phone: Comment on above: Expected: 08/12/2022, Expires: 3 Start: 08-12-2022 End: 10-12-2022 Lipid 1996 panel - Serum or Plasma LIPID PANEL BASIC Lab Routine Mixed hyperlipidemia Expected: 08/12/2022, Expires: 10/12/2022 [facility] Work Phone: Comment on above: Expected: 08/12/2022, Expires: 3 Start: 08-12-2022 End: 10-12-2022 PSA/PROSTSPECAG SCRN PSA/PROSTSPECAG SCRN Lab Routine Screening for prostate cancer Expected: 08/12/2022, Expires: 10/12/2022 [facility] Work Phone: Comment on above: Expected: 08/12/2022, Expires: 3 Start: 08-12-2022 End: 10-12-2022 Thyrotropin [Units/volume] in Serum or Plasma TSH BLD Lab Routine Hyponatremia Screening for thyroid disorder Expected: 08/12/2022, Expires: 10/12/2022 [facility] Work Phone: Comment on above: Expected: 08/12/2022, Expires: 3 Start: 08-11-2022 ANNUAL PCP TEAM CHRONIC DISEASE VISIT ANNUAL PCP TEAM CHRONIC DISEASE VISIT [facility] Start: 08-11-2022 BP CONTROLLED (<130/80) BP CONTROLLED (<130/80) [facility] Start: 08-05-2022 COVID-19 VACCINE (#1) COVID-19 VACCINE (#1) [facility] Comment on above: Postponed from 12/01/1964 (Declined at t his time) Postponed from 05/31 (Declined at this time) Start: 08-05-2022 COVID-19 VACCINE (1) COVID-19 VACCINE (1) [facility] Comment on above: Postponed from 12/01/1964 (Declined at t his time) Start: 08-05-2022 ONE PNEUMOVAX PRIOR TO AGE 64 ONE PNEUMOVAX PRIOR TO AGE 64 [facility] Comment on above: Postponed from 1975 (Declined at t his time) Start: 08-05-2022 PNEUMOCOCCAL (1 - PCV) PNEUMOCOCCAL (1 - PCV) [facility] Comment on above: Postponed from 12/01/1965 (Declined at t his time) Start: 08-02-2022 End: 10-02-2022 ALBUMIN/CREAT RATIO RND UR ALBUMIN/CREAT RATIO RND UR Lab Routine Microalbuminuria Expected: 08/02/2022, Expires: 10/02/2022 [facility] Work Phone: Comment on above: Expected: 08/02/2022, Expires: 3 Start: 07-12-2022 Hemoglobin A1c/Hemoglobin.total in Blood HBA1C [facility] Start: 07-05-2022 ANNUAL PCP TEAM CHRONIC DISEASE VISIT ANNUAL PCP TEAM CHRONIC DISEASE VISIT [facility] Start: 07-05-2022 Hepatitis B screening URINE ALBUMIN:CREATININE RATIO [facility] Start: 07-05-2022 Hepatitis B surface antibody level LDL CHOLESTEROL [facility] Start: 06-02-2022 3 comp foot exam completed DIABETIC FOOT EXAM [facility] Start: 06-02-2022 ANNUAL PCP TEAM CHRONIC DISEASE VISIT ANNUAL PCP TEAM CHRONIC DISEASE VISIT [facility] Start: 05-31-2022 Hemoglobin A1c/Hemoglobin.total in Blood HBA1C [facility] Start: 05-18-2022 End: 02-12-2023 25-hydroxyvitamin D3 [Mass/volume] in Serum or Plasma VITAMIN D 25 HYDROXY Lab Routine Vitamin D deficiency Expected: 05/18/2022, Expires: 02/12/2023 [facility] Work Phone: Comment on above: Expected: 05/18/2022, Expires: 3 Start: 05-18-2022 End: 07-18-2022 Comprehensive metabolic 2000 panel - Serum or Plasma COMP METABOLIC PANEL Lab Routine Hypertension, essential Hyponatremia Stage 3a chronic kidney disease (HCC) Expected: 05/18/2022, Expires: 07/18/2022 [facility] Work Phone: Comment on above: Expected: 05/18/2022, Expires: 3 Start: 05-18-2022 End: 07-18-2022 Lipid 1996 panel - Serum or Plasma LIPID PANEL BASIC Lab Routine Mixed hyperlipidemia Expected: 05/18/2022, Expires: 07/18/2022 [facility] Work Phone: Comment on above: Expected: 05/18/2022, Expires: 3 Start: 05-18-2022 End: 07-18-2022 Thyrotropin [Units/volume] in Serum or Plasma TSH BLD Lab Routine Hypertension, essential Expected: 05/18/2022, Expires: 07/18/2022 [facility] Work Phone: Comment on above: Expected: 05/18/2022, Expires: 3 Start: 04-09-2022 Hepatitis B screening URINE ALBUMIN:CREATININE RATIO [facility] Start: 04-09-2022 Hepatitis B surface antibody level LDL CHOLESTEROL [facility] Start: 04-05-2022 Hemoglobin A1c/Hemoglobin.total in Blood HBA1C [facility] Start: 03-01-2022 End: 11-26-2022 25-hydroxyvitamin D3 [Mass/volume] in Serum or Plasma VITAMIN D 25 HYDROXY Lab Routine Vitamin D deficiency Expected: 03/01/2022, Expires: 11/26/2022 [facility] Work Phone: Comment on above: Expected: 03/01/2022, Expires: 3 Start: 03-01-2022 End: 05-01-2022 Lipid 1996 panel - Serum or Plasma LIPID PANEL BASIC Lab Routine Mixed hyperlipidemia Expected: 03/01/2022, Expires: 05/01/2022 [facility] Work Phone: Comment on above: Expected: 03/01/2022, Expires: 3 Start: 02-05-2022 Hemoglobin A1c/Hemoglobin.total in Blood HBA1C [facility] Start: 01-05-2022 Hemoglobin A1c/Hemoglobin.total in Blood HBA1C [facility] Start: 12-21-2021 Hemoglobin A1c/Hemoglobin.total in Blood HBA1C [facility] Start: 2021 Influenza vaccination INFLUENZA (#1) [facility] Start: 11-11-2021 Hemoglobin A1c/Hemoglobin.total in Blood HBA1C [facility] Start: 11-05-2021 End: 08-02-2022 25-hydroxyvitamin D3 [Mass/volume] in Serum or Plasma VITAMIN D 25 HYDROXY Lab Routine Vitamin D deficiency Expected: 11/05/2021, Expires: 08/02/2022 [facility] Work Phone: Comment on above: Expected: 11/05/2021, Expires: 3 Start: 11-05-2021 End: 08-02-2022 Basic metabolic 2000 panel - Serum or Plasma BASIC METABOLIC PNL Lab Routine Hyponatremia Expected: 11/05/2021, Expires: 08/02/2022 [facility] Work Phone: Comment on above: Expected: 11/05/2021, Expires: 3 Start: 11-05-2021 End: 01-05-2022 Lipid 1996 panel - Serum or Plasma LIPID PANEL BASIC Lab Routine Mixed hyperlipidemia Expected: 11/05/2021, Expires: 01/05/2022 [facility] Work Phone: Comment on above: Expected: 11/05/2021, Expires: 2 Start: 10-27-2021 End: 12-27-2021 PSA/PROSTSPECAG SCRN PSA/PROSTSPECAG SCRN Lab Routine Benign prostatic hyperplasia with nocturia Hematuria, microscopic Screening PSA (prostate specific antigen) Nocturia Expected: 10/27/2021, Expires: 12/27/2021 [facility] Work Phone: Comment on above: Expected: 10/27/2021, Expires: 2 Start: 10-05-2021 End: 12-05-2021 Clostridioides difficile toxin genes [Presence] in Stool by BETO with probe detection C. DIFFICILE PCR Lab Routine Diarrhea, unspecified type Expected: 10/05/2021, Expires: 12/05/2021 [facility] Work Phone: Comment on above: Expected: 10/05/2021, Expires: 2 Start: 10-05-2021 End: 12-05-2021 Gastrointestinal pathogens panel - Stool by Culture STOOL CULTURE/EIA Microbiology Routine Diarrhea, unspecified type Expected: 10/05/2021, Expires: 12/05/2021 [facility] Work Phone: Comment on above: Expected: 10/05/2021, Expires: 2 Start: 10-05-2021 End: 12-05-2021 Giardia lamblia+Cryptosporidium sp Ag [Presence] in Stool by Immunoassay CRYPTOSPORIDIUM AND GIARDIA ANTIGENS BY EIA Microbiology Routine Diarrhea, unspecified type Expected: 10/05/2021, Expires: 12/05/2021 [facility] Work Phone: Comment on above: Expected: 10/05/2021, Expires: 2 Start: 10-04-2021 Hemoglobin A1c/Hemoglobin.total in Blood HBA1C [facility] Start: 09-20-2021 End: 06-17-2022 25-hydroxyvitamin D3 [Mass/volume] in Serum or Plasma [facility] Work Phone: Comment on above: Expected: 09/20/2021, Expires: 3 Start: 09-20-2021 End: 06-17-2022 Comprehensive metabolic 2000 panel - Serum or Plasma [facility] Work Phone: Comment on above: Expected: 09/20/2021, Expires: 3 Start: 09-20-2021 End: 11-20-2021 Lipid 1996 panel - Serum or Plasma [facility] Work Phone: Comment on above: Expected: 09/20/2021, Expires: 2 Start: 09-20-2021 End: 11-20-2021 Thyrotropin [Units/volume] in Serum or Plasma [facility] Work Phone: Comment on above: Expected: 09/20/2021, Expires: 2 Start: 09-02-2021 Hemoglobin A1c/Hemoglobin.total in Blood HBA1C [facility] Start: 08-11-2021 BP CONTROLLED (<130/80) BP CONTROLLED (<130/80) [facility] Start: 08-11-2021 End: 05-08-2022 Comprehensive metabolic 2000 panel - Serum or Plasma COMP METABOLIC PANEL Lab Routine Elevated alkaline phosphatase level Elevated serum creatinine Hyperkalemia Expected: 08/11/2021, Expires: 05/08/2022 [facility] Work Phone: Comment on above: Expected: 08/11/2021, Expires: 3 Start: 08-11-2021 End: 10-11-2021 LIPID PANEL BASIC LIPID PANEL BASIC Lab Routine Mixed hyperlipidemia Expected: 08/11/2021, Expires: 10/11/2021 [facility] Work Phone: Comment on above: Expected: 08/11/2021, Expires: 2 Start: 08-05-2021 Influenza vaccination LUNG CANCER SCREENING [facility] Start: 07-31-2021 Hepatitis C antibody, confirmatory test DILATED RETINAL EXAM [facility] Start: 07-24-2021 Colonoscopy COLONOSCOPY [facility] Start: 07-24-2021 COLORECTAL CANCER SCREENING COLORECTAL CANCER SCREENING [facility] Start: 07-24-2021 Screening for malignant neoplasm of colon [facility] Start: 05-28-2021 Adult depression screening assessment DEPRESSION SCREENING [facility] Start: 05-28-2021 ANNUAL PCP TEAM CHRONIC DISEASE VISIT ANNUAL PCP TEAM CHRONIC DISEASE VISIT [facility] Start: 05-14-2021 Hepatitis B screening URINE ALBUMIN:CREATININE RATIO [facility] Start: 05-14-2021 Hepatitis B surface antibody level LDL CHOLESTEROL [facility] Start: 04-27-2021 ANNUAL PCP TEAM CHRONIC DISEASE VISIT ANNUAL PCP TEAM CHRONIC DISEASE VISIT [facility] Start: 03-23-2021 [object Object] DIABETIC FOOT EXAM [facility] Start: 03-23-2021 ANNUAL PCP TEAM CHRONIC DISEASE VISIT ANNUAL PCP TEAM CHRONIC DISEASE VISIT [facility] Start: 02-19-2021 ANNUAL PCP TEAM CHRONIC DISEASE VISIT ANNUAL PCP TEAM CHRONIC DISEASE VISIT [facility] Start: 02-16-2021 Hepatitis B screening URINE ALBUMIN:CREATININE RATIO [facility] Start: 02-16-2021 Hepatitis B surface antibody level LDL CHOLESTEROL [facility] Start: 02-13-2021 Adult depression screening assessment DEPRESSION SCREENING [facility] Start: 08-11-2020 HbA1c (Bld) [Mass fraction] HBA1C [facility] Start: 05-19-2020 HbA1c (Bld) [Mass fraction] HBA1C [facility] Start: 05-18-2020 SHINGRIX VACCINE (2 of 2) SHINGRIX VACCINE (2 of 2) [facility] Start: 04-27-2020 End: 04-27-2021 HbA1c (Bld) [Mass fraction] HGB A1C Lab Routine Diabetes mellitus due to underlying condition, uncontrolled, with hyperglycemia (HCC) Expected: 04/27/2020, Expires: 04/27/2021 [facility] Comment on above: Expected: 04/27/2020, Expires: 2 Start: 02-14-2020 End: 02-13-2021 HbA1c (Bld) [Mass fraction] HGB A1C Lab Routine Controlled type 2 diabetes mellitus without complication, without long-term current use of insulin (HCC) Expected: 02/14/2020, Expires: 02/13/2021 [facility] Comment on above: Expected: 02/14/2020, Expires: 1 Start: 12-03-2019 Influenza vaccination INFLUENZA (#1) [facility] Start: 2019 Hepatitis B Vaccine (1 of 3 - Risk 3-dose series) Hepatitis B Vaccine (1 of 3 - Risk 3-dose series) [facility] Start: 2019 RSV Immunization aged 60 or older (1 - 1-dose 60+ series) RSV Immunization aged 60 or older (1 - 1-dose 60+ series) Start: 2019 RSV Immunization for Adults (1 - Risk 60-74 years 1-dose series) RSV Immunization for Adults (1 - Risk 60-74 years 1-dose series) Start: 2019 RSV Vaccine (1 - 1-dose 60+ series) RSV Vaccine (1 - 1-dose 60+ series) [facility] Start: 2019 RSV Vaccine (1 - Risk 60-74 years 1-dose series) RSV Vaccine (1 - Risk 60-74 years 1-dose series) [facility] Start: 12-01-2014 PROSTATE CANCER SCREENING DISCUSSION PROSTATE CANCER SCREENING DISCUSSION [facility] Start: 12-01-2009 COLORECTAL CANCER SCREENING,SEE MODIFIER COLORECTAL CANCER SCREENING,SEE MODIFIER [facility] Start: 12-01-2009 Screening for malignant neoplasm of colon [facility] Start: 12-01-2009 SHINGRIX VACCINE (1 of 2) SHINGRIX VACCINE (1 of 2) [facility] Start: 12-01-2004 COLOGUARD (FIT-DNA) COLOGUARD (FIT-DNA) [facility] Start: 12-01-[address] COLONOGRAPHY [facility] Start: 12-01-2004 DIABETES SCREEN DIABETES SCREEN [facility] Start: 12-01-2004 FECAL OCCULT BLOOD FECAL OCCULT BLOOD [facility] Start: 12-01-2004 Screening for malignant neoplasm of colon [facility] Start: 12-01-2004 SIGMOIDOSCOPY SIGMOIDOSCOPY [facility] Start: 12-01-1994 LIPID SCREEN LIPID SCREEN [facility] Start: 12-01-1978 Urine microalbumin profile DTAP,TDAP,TD (1 - Tdap) [facility] Start: 12-01-1977 BP CONTROLLED (<130/80) BP CONTROLLED (<130/80) [facility] Start: 12-01-1977 HEPATITIS C SCREENING HEPATITIS C SCREENING [facility] Start: 12-01-1977 Hepatitis C screening Hepatitis C Screening Start: 12-01-1977 HIV SCREENING HIV SCREENING [facility] Start: 1975 ONE PNEUMOVAX PRIOR TO AGE 65 ONE PNEUMOVAX PRIOR TO AGE 64 [facility] Start: 1971 Depression Monitoring Depression Monitoring Start: 1971 Depression Screening Depression Screening Start: 12-01-1969 [object Object] DIABETIC FOOT EXAM [facility] Start: 12-01-1969 Diabetic foot examination Diabetes: Foot Exam Start: 12-01-1969 Glaucoma screening Diabetes: Retinopathy Screening Start: 12-01-1969 Hepatitis C antibody, confirmatory test DILATED RETINAL EXAM [facility] Start: 12-01-1969 Preventive dental service Diabetes: Dental Exam Start: 12-01-1965 PNEUMOCOCCAL (1 - PCV) PNEUMOCOCCAL (1 - PCV) [facility] Start: 12-01-1964 COVID-19 VACCINE (1) COVID-19 VACCINE (1) [facility] Start: 12-01-1960 MMR Vaccines (1 of 1 - Standard series) MMR Vaccines (1 of 1 - Standard series) Start: 05-31-1960 COVID-19 VACCINE (#1) COVID-19 VACCINE (#1) [facility] Start: 1959 Annual wellness visit Medicare Initial Physical (IPPE) Start: 1959 HIV screening HIV Screening Start: 1959 Lipid panel Lipid Panel Start: 1959 Screening for malignant neoplasm of colon ACCUCHECK B/O ACCUCHECK B/O La b Routine Diabetes mellitus due to underlying condition, uncontrolled, with hyperglycemia (HCC) Ordered: 01/03/2022 [facility] Work Phone: Comment on above: Ordered: 01/03/2022 ACCUCHECK B/O ACCUCHECK B/O La b Routine Diabetes mellitus due to underlying condition, uncontrolled, with hyperglycemia (HCC) Ordered: 03/01/2022 [facility] Work Phone: Comment on above: Ordered: 03/01/2022 ACCUCHECK B/O ACCUCHECK B/O La b Routine Diabetes mellitus due to underlying condition, uncontrolled, with hyperglycemia (HCC) Ordered: 05/18/2022 [facility] Work Phone: Comment on above: Ordered: 05/18/2022 End: 02-13-2021 ALBUMIN/CREAT RATIO RND UR ALBUMIN/CREAT RATIO RND UR Lab Routine Controlled type 2 diabetes mellitus without complication, without long-term current use of insulin (HCC) 1 Occurrences starting 02/14/2020 until 02/13/2021 [facility] Comment on above: 1 Occurrences starting 02/14/2020 until 02/13/2021 End: 04-27-2021 ALBUMIN/CREAT RATIO RND UR ALBUMIN/CREAT RATIO RND UR Lab Routine Diabetes mellitus due to underlying condition, uncontrolled, with hyperglycemia (HCC) 1 Occurrences starting 04/27/2020 until 04/27/2021 [facility] Comment on above: 1 Occurrences starting 04/27/2020 until 04/27/2021 Bacteria identified in Blood by Culture [facility] [place] [facility] Work Phone: Bacteria identified in Blood by Culture Blood culture Site #1 - Suspected Infection Microbiology STAT 11/27/2024 3:39 AM EDT [facility] [place] [facility] Work Phone: End: 02-13-2021 CBC W Auto Differential panel - Blood CBC + DIFF Lab Routine Routine physical examination 1 Occurrences starting 02/14/2020 until 02/13/2021 [facility] Comment on above: 1 Occurrences starting 02/14/2020 until 02/13/2021 Comprehensive metabo lic 2000 panel COMP METABOLIC PANEL Lab Routine Routine physical examination 1 Occurrences starting 02/14/2020 [facility] Comment on above: 1 Occurrences starting 02/14/2020 End: 02-19-2021 CREATININE BLD CREATININE BLD Lab Routine Dizziness 1 Occurrences starting 02/20/2020 until 02/19/2021 [facility] Comment on above: 1 Occurrences starting 02/20/2020 until 02/19/2021 Ct angiography head w/contrast/noncontrast CTA HEAD WO/W IVCON Radiology Routine Dizziness and giddiness Ordered: 02/20/2020 [facility] Comment on above: Ordered: 02/20/2020 End: 07-05-2023 Ct thorax w/o contrast material CT CHEST WO IVCON Radiology Routine Pulmonary nodules 1 Occurrences starting 06/05/2022 until 07/05/2023 [facility] Work Phone: Comment on above: 1 Occurrences starting 06/05/2022 until 07/05/2023 ECG B/O WO INTERP ( ED OFFICE) [facility] Comment on above: Ordered: 02/14/2020 Ordered: 02/20/2020 Ordered: 05/28/2020 ECG B/O WO INTERP (M ED OFFICE) ECG B/O WO INTERP (MED OFFICE) ECG Routine Hypertension, essential Ordered: 08/12/2022 [facility] Work Phone: Comment on above: Ordered: 08/12/2022 ECG B/O WO INTERP (M ED OFFICE) ECG B/O WO INTERP (MED OFFICE) ECG Routine Myocardial infarction due to demand ischemia (HCC) Hypertension, essential Ordered: 09/28/2022 [facility] Work Phone: Comment on above: Ordered: 09/28/2022 End: 10-14-2023 Echocardiography ECHO Cardiology Routine OTT (dyspnea on exertion) 1 Occurrences starting 10/13/2022 until 10/14/2023 [facility] Work Phone: Comment on above: 1 Occurrences starting 10/13/2022 until 10/14/2023 Glucose [Mass/volume ] in Serum or Plasma GLUCOSE, BLOOD (POC) Lab Routine Diabetes mellitus due to underlying condition, uncontrolled, with hyperglycemia (HCC) Ordered: 08/11/2021 [facility] Work Phone: Comment on above: Ordered: 08/11/2021 Glucose [Mass/volume ] in Serum or Plasma GLUCOSE, BLOOD (POC) Lab Routine Diabetes mellitus due to underlying condition, uncontrolled, with hyperglycemia (HCC) Ordered: 09/20/2021 [facility] Work Phone: Comment on above: Ordered: 09/20/2021 Glucose [Mass/volume ] in Serum or Plasma GLUCOSE, BLOOD (POC) Lab Routine Diabetes mellitus due to underlying condition, uncontrolled, with hyperglycemia (HCC) Ordered: 10/05/2021 [facility] Work Phone: Comment on above: Ordered: 10/05/2021 H&P for surgery H&P FOR SURGERY Procedures Routine History of rectal cancer Ordered: 09/02/2022 [facility] Work Phone: Comment on above: Ordered: 09/02/2022 Hemoglobin A1c/Hemoglobin.total in Blood HEMOGLOBIN A1C (POC) Lab Routine Diabetes mellitus due to underlying condition, uncontrolled, with hyperglycemia (HCC) Ordered: 08/11/2021 [facility] Work Phone: Comment on above: Ordered: 08/11/2021 Hemoglobin A1c/Hemoglobin.total in Blood HEMOGLOBIN A1C (POC) Lab Routine Diabetes mellitus due to underlying condition, uncontrolled, with hyperglycemia (HCC) Ordered: 09/20/2021 [facility] Work Phone: Comment on above: Ordered: 09/20/2021 Hemoglobin A1c/Hemoglobin.total in Blood HEMOGLOBIN A1C (POC) Lab Routine Diabetes mellitus due to underlying condition, uncontrolled, with hyperglycemia (HCC) Ordered: 10/05/2021 [facility] Work Phone: Comment on above: Ordered: 10/05/2021 End: 02-13-2021 HEP C AB IA W/CONF SCRN HEP C AB IA W/CONF SCRN Lab Routine Special screening examination for viral disease 1 Occurrences starting 02/14/2020 until 02/13/2021 [facility] Comment on above: 1 Occurrences starting 02/14/2020 until 02/13/2021 HGBA1C B/O (AG) HGBA1C B/O (AG) Lab Routine Diabetes mellitus due to underlying condition, uncontrolled, with hyperglycemia (HCC) Ordered: 01/03/2022 [facility] Work Phone: Comment on above: Ordered: 01/03/2022 HGBA1C B/O (AG) HGBA1C B/O (AG) Lab Routine Diabetes mellitus due to underlying condition, uncontrolled, with hyperglycemia (HCC) Ordered: 03/01/2022 [facility] Work Phone: Comment on above: Ordered: 03/01/2022 HGBA1C B/O (AG) HGBA1C B/O (AG) Lab Routine Diabetes mellitus due to underlying condition, uncontrolled, with hyperglycemia (HCC) Ordered: 05/18/2022 [facility] Work Phone: Comment on above: Ordered: 05/18/2022 HGBA1C B/O (AG) HGBA1C B/O (AG) Lab Routine Diabetes mellitus due to underlying condition, uncontrolled, with hyperglycemia (HCC) Ordered: 06/29/2022 [facility] Work Phone: Comment on above: Ordered: 06/29/2022 End: 02-13-2021 HIV 1+2 Ab IA Ql HIV 1 2 COMBO(AG/AB),WITH REFLEX TO DIFFERENTIATION Lab Routine Screening for HIV (human immunodeficiency virus) 1 Occurrences starting 02/14/2020 until 02/13/2021 [facility] Comment on above: 1 Occurrences starting 02/14/2020 until 02/13/2021 INJECTION HIP JOINT (AG) INJECTI ON HIP JOINT (AG) Radiology Routine Primary osteoarthritis of left hip Ordered: 01/23/2023 [facility] Work Phone: Comment on above: Ordered: 01/23/2023 End: 02-13-2021 LIPID PANEL BASIC LIPID PANEL BASIC Lab Routine Routine physical examination 1 Occurrences starting 02/14/2020 until 02/13/2021 [facility] Comment on above: 1 Occurrences starting 02/14/2020 until 02/13/2021 End: 04-27-2021 LIPID PANEL BASIC LIPID PANEL BASIC Lab Routine Mixed hyperlipidemia 1 Occurrences starting 04/27/2020 until 04/27/2021 [facility] Comment on above: 1 Occurrences starting 04/27/2020 until 04/27/2021 End: 07-31-2023 MRI ARTHROGRAM HIP LEFT MRI ARTHROGRAM HIP LEFT Radiology Routine Pain in hip Chronic left hip pain 1 Occurrences starting 07/01/2022 until 07/31/2023 [facility] Work Phone: Comment on above: 1 Occurrences starting 07/01/2022 until 07/31/2023 End: 08-30-2022 MRI ARTHROGRAM HIP LEFT [facility] Work Phone: Comment on above: 1 Occurrences starting 08/30/2022 until 08/30/2022 Mri pelvis w/o & w/contrast material MRI PELVIS WO/W IVCON Radiology Routine Malignant neoplasm of rectosigmoid junction (HCC) 08/09/2021 5:06 PM EDT [facility] Work Phone: End: 10-02-2023 Mri spinal canal [...] present 1 Occurrences starting 09/02/2022 until 10/02/2023 [facility] Work Phone: Comment on above: 1 Occurrences starting 09/02/2022 until 10/02/2023 End: 11-12-2023 NM CARDIAC PERF STRESS/PHARM NM CARDIAC PERF STRESS/PHARM Radiology Routine Precordial pain OTT (dyspnea on exertion) Primary hypertension 1 Occurrences starting 10/13/2022 until 11/12/2023 [facility] Work Phone: Comment on above: 1 Occurrences starting 10/13/2022 until 11/12/2023 PAP TITRATION PSG (C PAP, BIPAP, ASV) PAP TITRATION PSG (CPAP, BIPAP, ASV) Procedures Routine MEKHI (obstructive sleep apnea) Ordered: 10/05/2021 [facility] Work Phone: Comment on above: Ordered: 10/05/2021 PAP TITRATION PSG (C PAP, BIPAP, ASV) PAP TITRATION PSG (CPAP, BIPAP, ASV) Procedures Routine MEKHI (obstructive sleep apnea) Ordered: 05/18/2022 [facility] Work Phone: Comment on above: Ordered: 05/18/2022 Prostate specific Ag [Mass/Vol] PSA/PROSTSPECAG DIAG Lab Routine Routine physical examination 1 Occurrences starting 02/14/2020 [facility] Comment on above: 1 Occurrences starting 02/14/2020 PT ED PATIENT INFORMATION PT ED PATIENT INFORMATION Other 05/30/2020 [facility] PT PLAN OF CARE CERTIFICATION PT PLAN OF CARE CERTIFICATION Procedures Routine Chronic bilateral low back pain, unspecified whether sciatica present Weakness Decreased mobility and endurance Ordered: 05/05/2020 [facility] Comment on above: Ordered: 05/05/2020 Radex hip unilateral with pelvis 1 view XR HIP 1V UNIL W PELVIS WHEN PERFORMED (AG) Radiology Routine Pain in left hip Ordered: 10/09/2022 [facility] Work Phone: Comment on above: Ordered: 10/09/2022 Radex shoulder compl ete minimum 2 views XR SHOULDER GENERAL 3V OR MORE AP/TRUE AP/OTHER LT Radiology Routine Left shoulder pain, unspecified chronicity Ordered: 04/27/2020 [facility] Comment on above: Ordered: 04/27/2020 End: 03-15-2021 Radex spine lumbosacral 2/3 views XR LUMBAR GENERAL 3V AP/LAT/L5-S1 Radiology Routine Chronic bilateral low back pain with sciatica, sciatica laterality unspecified 1 Occurrences starting 02/14/2020 until 03/15/2021 [facility] Comment on above: 1 Occurrences starting 02/14/2020 until 03/15/2021 End: 09-03-2023 Screening colonoscopy COLONOSCOPY SCREENING Endoscopy Routine History of rectal cancer 1 Occurrences starting 09/02/2022 until 09/03/2023 [facility] Work Phone: Comment on above: 1 Occurrences starting 09/02/2022 until 09/03/2023 End: 02-19-2025 Screening colonoscopy COLONOSCOPY SCREENING Endoscopy Routine History of rectal cancer 1 Occurrences starting 02/20/2024 until 02/19/2025 [facility] Work Phone: Comment on above: 1 Occurrences [...] Upon Ordering for 1 Occurrences starting 05/13/2024 [facility] Work Phone: Comment on above: Release Upon Ordering for 1 Occurrences starting 05/13/2024 End: 02-13-2021 TSH Qn TSH BLD Lab Routine Routine physical examination 1 Occurrences starting 02/14/2020 until 02/13/2021 [facility] Comment on above: 1 Occurrences starting 02/14/2020 until 02/13/2021 Urinalysis complete panel - Urine URINALYSIS, WITH MICROSCOPIC Lab Routine Dysuria 1 Occurrences starting 04/27/2020 [facility] Comment on above: 1 Occurrences starting 04/27/2020 VITAMIN D 25 HYDROXY VITAMIN D 2 5 HYDROXY Lab Routine Routine physical examination 1 Occurrences starting 02/14/2020 [facility] Comment on above: 1 Occurrences starting 02/14/2020 End: 07-31-2023 XR INJ ARTHROGRAM HIP LEFT XR INJ ARTHROGRAM HIP LEFT Radiology Routine Pain in hip Chronic left hip pain 1 Occurrences starting 07/01/2022 until 07/31/2023 [facility] Work Phone: Comment on above: 1 Occurrences starting 07/01/2022 until 07/31/2023 End: 08-30-2022 XR INJ ARTHROGRAM HIP LEFT XR INJ ARTHROGRAM HIP LEFT Radiology Routine Pain in hip Chronic left hip pain 1 Occurrences starting 08/30/2022 until 08/30/2022 [facility] Work Phone: Comment on above: 1 Occurrences starting 08/30/2022 until 08/30/2022 [facility] Immunizations Immunization Date Immunization Notes Care Provider Fa [facility] 08-12-2022 pneumococcal polysaccharide vaccine, 23 valent Belgica Je DO Work Phone: [facility] 03-01-2022 influenza, injectabl e, quadrivalent, contains preservative Belgica Je DO Work Phone: [facility] 03-01-2022 influenza virus vacc ine, unspecified formulation Belgica Je DO Work Phone: [facility] 01-08-2021 influenza, injectabl e, quadrivalent, contains preservative Janie Pickett MOBILE PHONE SALESPERSON.PAYROLL SECRETARY Work Phone: [facility] 10-19-2020 tetanus toxoid, redu anna diphtheria toxoid, and acellular pertussis vaccine, adsorbed Janie Pickett MOBILE PHONE SALESPERSON.PAYROLL SECRETARY Work Phone: [facility] 10-19-2020 zoster vaccine recombinant Janie Pickett MOBILE PHONE SALESPERSON.PAYROLL SECRETARY Work Phone: [facility] 03-23-2020 influenza, injectabl e, quadrivalent, contains preservative Belgica Javier [facility] 03-23-2020 zoster vaccine recombinant [facility] Javier [facility] Payers Date Payer Category Payer Self-pay 2023 Medicare (Managed Care) [facility] DUAL COMPLETE HMO POS SNP [id number] 2023 Medicare HMO [employer] DUAL COMPLET E [id number] 2022 [facility] [id number] 2021 Medicaid [id number] 2020 Medicaid [id number] 2020 Medicaid [id number] 2020 Medicare [id number] 2020 Medicare [id number] 2020 Medicare [id number] Unknown [id number] Unknown [id number] Unknown [id number] Unknown [id number] Social History Date Type Detail Facility Start: 02-14-2020 End: 07-10-2024 Tobacco smoking status NHIS Former smoker [facility] Start: 02-14-2020 End: 07-10-2024 Tobacco use and exposure Never used [facility] Start: 02-14-2020 End: 07-10-2024 Alcohol intake Ex-drinker (finding) [facility] Start: 1960 Sex Assigned At Not on file [facility] Start: 08-10-2020 End: 01-20-2022 Exposure to SARS-CoV-2 (event) Not sure [facility] Start: 04-03-1973 End: 04-03-2010 History of tobacco use Current smoker [facility] Start: 04-03-1973 End: 04-03-2010 History of tobacco use Cigarette Smoker [facility] Start: 04-19-2021 End: 11-26-2024 Cigarettes smoked current (pack per day) - Reported 1 [facility] Start: 09-23-2020 End: 01-18-2022 History SDOH Alcohol Frequency 1 [facility] Start: 09-23-2020 End: 12-28-2021 History SDOH Social Connections Phone 5 [facility] Start: 09-23-2020 End: 12-28-2021 History SDOH Social Connections Membership 2 [facility] Start: 09-23-2020 End: 12-28-2021 History SDOH Social Connections Living 7 [facility] Start: 09-23-2020 History SDOH Physical Activity DPW 0 [facility] Start: 09-23-2020 History SDOH Stress 4 [facility] Start: 09-23-2020 Education 9 [facility] Start: 04-12-2021 End: 01-03-2022 Tobacco Comment Smokes [place] [facility] Start: 1960 Sex Assigned At Male [facility] Work Phone: Start: 01-18-2022 History SDOH Housing Unable to Pay 3 [facility] Start: 12-28-2021 End: 11-26-2024 Social connection and isolation panel [facility] Do you belong to any clubs or organizations such as scientologist groups, unions, fraternal or athletic groups, or school groups? Yes [facility] Are you now , , , , never or living with a partner? Never [facility] How often to you hav e a drink containing alcohol? Never [facility] Average Number of Drinks Not on file [facility] Work Phone: Do you feel stress - tense, restless, nervous, or anxious, or unable to sleep at night because your mind is troubled all the time - these days [OSQ] Very much [facility] (I/We) worried wheth er (my/our) food would run out before (I/we) got money to buy more. DK or Refused [facility] Work Phone: Start: 09-04-2020 Gender identity Identifies as male gender (finding) [facility] Work Phone: Start: 09-04-2020 Sexual orientation Heterosexual (finding) [facility] Work Phone: Has the [employer], or [employer] threatened to shut off services in your home in past 12Mo No [facility] How hard is it for y ou to pay for the very basics like food, housing, medical care, and heating Somewhat hard [facility] (I/We) worried wheth er (my/our) food would run out before (I/we) got money to buy more. Sometimes true [facility] (I/We) worried wheth er (my/our) food would run out before (I/we) got money to buy more. Never true [facility] Tobacco smoking stat us HIIS Tobacco smoking consumption unknown Start: 08-01-2023 Sex Male (finding) Medical Equipment Procedure Code Equipment Code Equipment Origin al Text Equipment Identifier Dates [id number] Start: 09-22-2020 End: 05-18-2022 Comment on above: [...] Iol 1 Piece Foldable Uv Blue - [id number] Start: 08-18-2022 Lens Acrysof Ultrasert +23 Diopter Acrylic Iol 1 Piece Foldable Uv Blue - [id number] Start: 09-08-2022 Catheter Glidepa th 14.5fr Straight Polyurethane 28cm 23cm Hemodialysis Kit - [id number] Start: 07-18-2024 Goals Date Patient Goal [...] might be different from the original. Last 4/4/22 LDL = 160 (No meds) Formatting of this n ote might be different from the original. Last 06/27/22 LDL = 198 Crestor 5mg Functional Status Date Assessment Result Facility 10-20-2023 Are you deaf, or do you have serious difficulty hearing No 10/20/2023 2:19 PM EDT Ester Benitez, LEATHA No [facility] 10-20-2023 Are you blind, or do you have serious difficulty seeing, even when wearing glasses No 10/20/2023 2:19 PM EDT Ester Benitez, LEATHA No [facility] 10-20-2023 Do you have serious difficulty walking or climbing stairs Yes 10/20/2023 2:19 PM EDT Ester Benitez, LEATHA Yes [facility] 10-20-2023 Do you have difficul ty dressing or bathing Yes 10/20/2023 2:19 PM EDT Etser Benitez, LEATHA Yes [facility] 10-20-2023 Because of a physica l, mental, or emotional condition, do you have difficulty doing errands alone such as visiting a physician's office or shopping Yes 10/20/2023 2:19 PM EDT Ester Benitez, LEATHA Yes [facility] Mental Status Date Assessment Result Facility 10-20-2023 Because of a physica l, mental, or emotional condition, do you have serious difficulty concentrating, remembering, or making decisions Yes 10/20/2023 2:19 PM EDT Ester Benitez, LEATHA Yes [facility] Clinical Notes 05-05-2020 to 11-29-2024 Care Coordination - Teica Mayen - 11/29/2024 2:17 PM EDTCare Coordination - Romica Mayen - 11/29/2024 2:17 PM EDTCare Coordination - Romica Mayen - 11/29/2024 2:11 PM EDT Note Date & Type Note Facility 11-29-2024 Progress note Formatting of t his note might be different from the original. Confirmed pickup time of 330PM by transport [employer] at phone number [phone]. Location of facility drop off is [facility]. Facility notified via Careport, TCC notified on secure chat. 11-29-2024 Miscellaneous Notes Confirmed pickup time of 330PM by transport [employer] at phone number [phone]. Location of facility drop off is [facility]. Facility notified via Careport, TCC notified on secure chat. Transport requested 330 in Roundtrip. Awaiting time confirmation. Discharge med list transmitted to [facility]. Sent updated notes to [facility] request. Await review and response regarding ability to accept. TCC notified. Care Management Progress Note Short Medical why still here: shaking/ tremors. 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 Nephrology and endocrinology following. Plan for hemodialysis today. Planned Discharge Disposition: Long Term Facility ([facility]) insurance auth approved for his return (he is also a bedhold). Barriers/Today we still Wait: Administering IV medications, Clinical stability, Symptomatic control Length of Stay (Days): 4 GMLOS: 4.6 welfare manager to follow for discharge planning. 2:07 PM UPDATE: DC order noted Tasked [employer] to send discharge paperwork and MAR to [facility]. Tasked her to arrange transportation via cot. Spoke with patient regarding transportation plan. Confirmed pickup time is 330. Discussed patient may have a co-pay for ambulance depending on their individual insurance coverage. Advised patient to call number on back of insurance card with questions or concerns. Updated bedside RN and manager community relations. Updated patient's sister per his request. Sent updated notes to return back to [facility] via Careport per TCC request. Await review and response regarding ability to accept. TCC notified. Care Management Progress Note Short Medical why still here: persistent tremors/ shaking. Awaiting neuro consult. On IV vancomycin. Hemodialysis on Monday. Planned Discharge Disposition: Long Term Facility ([facility], bedhold but request precert) Barriers/Today we still Wait: Administering IV medications, Clinical stability, Symptomatic control, Machine Shop Inspector recommendations (comment) Length of Stay (Days): 3 GMLOS: 3.7 welfare manager to follow for discharge planning. Referral placed to return back to [facility] via Careport per TCC request. Await review and response regarding ability to accept. TCC notified. Care Managment Initial Assessment Date: 11/27/2024 Patient Name: José Manuel Ashton : 1960 Patient Information Source of Information: Patient Cognition/Language: WFL - Within Functional Limits Permission given to speak with patient wholesale representative/caregiver as indicated: Confirmation of Payer with patient/family: Yes Payer Name: UNITED [employer] MEDICARE/[facility] DUAL COMPLETE [place]: No Confirmation of Primary Care Physician: Primary Caregiver: If assistance needed, confirmed caregiver ready, willing and able to care for patient at discharge: Confirmed with: Living Arrangements Current Residence: Number of Floors Number of Entry Steps: Bed/Bath Levels: Facility: Nursing Facility Skilled Facility Name: [facility] Plan to Return: Yes Lives with: Alone Support Systems: Family members Activities of Daily Living Ambulation: Assistance Bathing/Dressing: Assistance Elimination/Continence/Toileting: Assistance Feeding: Assistance Who Assists with Activities of Daily Living: Instrumental Activities of Daily Living Prescription Coverage: Yes Pharmacy Used: Medication Management: Transportation/Shopping: Assistance Provider Transportation Mode: Payer provided transport service Needs Assistance with Transportation at Discharge: Yes Meal Preparation: Assistance Provider Meal Prep Assistance Provider Name: facility Laundry/Cleaning: Assistance Provider Laundry/Cleaning Assistance Provider Name: facility Finances/Bill Paying: Assistance Provider Finances/Bill Payer Assistance Provider Name: facility Communication: Independent Types of Care Services/Equipment Utilized Care Services: Dialysis Type: Hemo Dialysis Provider Name/Location: [facility] M-F Durable Medical Equipment: Wheelchair (standard or power), Cane Patient's Goal/Discharge Plan Patient expects to be discharged to: [facility] Discharge Planning Actions: Continue to follow, Long Term Facility referral indicated Patient's Choice Rights and [employer] and Collaborative Relationships Disclosed as Indicated for Post-Acute Care: NA Interdisciplinary Team Engagement: Social Work Referral for: Additional Information: Spoke with patient at their bedside. Introduced self and role. Discussed discharge planning. Patient has health insurance and prescription coverage. Patient states he lives at [facility] and plans to return. Tasked [employer] to send referral in Careport. Will await response. He receives hemodialysis there Monday through Monday. He will need ambulance transport with cot upon discharge. manager paper will continue to follow for any discharge planning needs. 2:46 PM UPDATE: Patient is a bedhold at [facility]. They would like to skill him for his return but he may return regardless when medically ready. They are submitting precert today. SW call to [facility] coverage line. Per [facility] coverage line, he was denied Assisted Living due to [facility] care placement at [facility]. TCC notified. Care Management Progress Note Short Medical why still here: admitted for chills, received one dose of vancomycin. Blood cultures pending. Monitoring renal labs. [facility] Nephrology and endocrinology following. Planned Discharge Disposition: Long Term Facility (patient came from [facility], anticipate return but will confirm with patient and facility) Barriers/Today we still Wait: Administering IV medications, Clinical stability, Symptomatic control, Machine Shop Inspector recommendations (comment) Length of Stay (Days): 2 GMLOS: No GMLOS Documented documented in this encounter 11-29-2024 Progress note Formatting of t his note might be different from the original. Transport requested 330 in Roundtrip. Awaiting time confirmation. 11-29-2024 Progress note Formatting of t his note might be different from the original. Discharge med list transmitted to [facility] via Careport per TCC request. 11-29-2024 Note Discharge Summary José Manuel Ashton : 1960 ADMIT DATE: 11/25/2024 DISCHARGE DATE: 11/29/2024 PRIMARY CARE PHYSICIAN: Brittaney Garcia MD VISIT STATUS: inpatient CODE STATUS: Full Code DISCHARGE DIAGNOSES: Lethargy and chills Myoclonic jerks and twitching HTN DM2 ESRD Anemia Hyperlipidemia Depression Class 3 obesity HOSPITAL COURSE: 64 year old presented with lethargy, shaking and chills. He was admitted, placed on IV antibiotics and cultures were obtained. He was seen by Nephrology and Endocrinology. He was seen by PT/OT and underwent HD. He described myoclonic jerking and twitching more than rigors and Neurology was asked to evaluate. They thought symptoms were likely from uremia. He improved over his stay, blood cultures to date were negative, antibiotics were stopped and he was discharged to [facility]. SIGNIFICANT DIAGNOSTIC STUDIES: CXR CONSULTANTS: Nephrology, Endocrinology, Neurology RECOMMENDED NEXT STEPS: Discharged to [facility]. Follow up final blood cultures. Physical Exam: Vitals: BP 153/83 Pulse 85 Temp 36.6 ?C (97.8 ?F) Resp 17 Ht 5' 10" (1.778 m) Wt 265 lb (120 kg) SpO2 91% BMI 38.02 kg/m? Pulse Ox: SpO2 Av.5 % Min: 91 % Max: 96 % General appearance: alert, cooperative and no distress Mental Status: oriented to person, place and time and normal affect Lungs: clear to auscultation bilaterally, normal effort Heart: regular rate and rhythm, + murmur Abdomen: soft, nontender, nondistended, bowel sounds present, no masses Extremities: no edema, redness, tenderness in the calves Skin: no gross lesions, rashes LABS: CBC: Recent Labs 11/27/24 0339 11/28/24 0641 11/29/24 0706 WBC 5.0 5.1 5.2 RBC 2.93* 2.88* 2.79* HGB 8.5* 8.5* 8.2* HCT 26.7* 26.4* 26.1* MCV 91.1 91.7 93.5 RDW 12.6 12.8 12.8 PLT 216 227 222 BMP: Recent Labs 11/27/24 03311/28/24 0641 11/29/24 0706 NA 144 143 144 K 4.8 4.7 5.1 CL 106 106 109* CO2 27 27 26 BUN 67* 43* 58* CREATININE 6.86* 4.87* 5.79* GLUCOSE 161* 135* 166* CALCIUM 9.0 8.8 8.9 ANIONGAP 11 10 9 LIVER PROFILE: Recent Labs 11/27/24 03311/28/24 0641 11/29/24 0706 AST 17 28 22 ALT 16 34 36 BILITOT 0.4 0.4 0.3 ALKPHOS 94 111 109 PROT 6.2* 6.1* 5.9* DISCHARGE MEDICATIONS: Medication List START taking these medications amLODIPine 5 MG tablet Commonly known as: Norvasc Take 1 tablet (5 mg) by mouth daily. insulin glargine 100 UNIT/ML injection Commonly known as: Lantus Inject 10 Units under the skin Nightly. Insulin Lispro 100 UNIT/ML solution injection Commonly known as: Humalog Inject 3 Units under the skin 3 times daily (with meals). ipratropium-albuterol 0.5-2.5 mg/3 mL nebulizer solution Commonly known as: Duo-Neb Take 3 mL by nebulization every 4 hours as needed for shortness of breath or wheezing. CHANGE how you take these medications bisacodyl 5 MG EC tablet Commonly known as: Dulcolax What changed: Another medication with the same name was removed. Continue taking this medication, and follow the directions you see here. CONTINUE taking these medications cyclobenzaprine 10 MG tablet Commonly known as: Flexeril diazePAM 10 MG tablet Commonly known as: Valium hydrALAZINE 50 MG tablet Commonly known as: Apresoline oxyCODONE 5 MG immediate release tablet Commonly known as: Roxicodone Take 2 tablets (10 mg) by mouth every 6 hours as needed for severe pain (7-10). STOP taking these medications acetaminophen 325 MG tablet Commonly known as: Tylenol Where to Get Your Medications These medications were sent to [facility] [address] [place] [id number] Hours: Monday to Monday 10 am to 6 pm amLODIPine 5 MG tablet insulin glargine 100 UNIT/ML injection Insulin Lispro 100 UNIT/ML solution injection ipratropium-albuterol 0.5-2.5 mg/3 mL nebulizer solution You can get these medications from any pharmacy Bring a paper prescription for each of these medications oxyCODONE 5 MG immediate release tablet DIET: Adult diet Regular; 5 carb choices (75 gm/meal) ACTIVITY: up with assist COMPLEXITY OF FOLLOW UP: [] Moderate Complexity: follow up within 7-14 calendar days (96044) [] Severe Complexity: follow up within 7 calendar days (44897) FOLLOW UP TESTING, PENDING RESULTS OR REFERRALS AT TRANSITIONAL CARE VISIT: [] Yes [] No PENDING STUDIES: Final blood cultures DISPOSITION: [facility] INSTRU[facility] TO [facility]/SW: Please call patient on day after discharge (must document patient contacted within 2 business days of discharge). FOLLOW UP QUESTIONS FOR MA/SW: 1. Did you get medications filled and taking them as instructed from discharge? 2. Are you following your discharge instructions from your hospital st (more content not included)... [facility] 11-29-2024 History of Present illness Narrative Department of Internal Medicine Division of Endocrinology, Diabetes, & Metabolism Endocrinology Note Patient Name: José Manuel Ashton : 1960 AGE: 63 y.o. Room[facility]: [facility] A Admission Date: 11/25/2024 Visit Date: 11/29/2024 Reason for Endocrine Consult: DM/Pt on U300 insulin Provider/Team Requesting Consult: Dr. Hills PCP: Brittaney Garcia MD Outpt [place] [facility]: Yes [facility] ASSESSMENT: Type 2 diabetes mellitus with hyperglycemia, with chcf insulin use Lethargy and chills HTN DM2 ESRD Anemia Hyperlipidemia Depression Class 3 obesity PLAN: Continue Lantus 10 units nightly Continue Humalog 3 units TID with meals Continue humalog sliding scale to Low dose TID with meals. ICU goal <180 GMF goal <150 POCT BG ACHS Hypoglycemia management per protocol Carb controlled diet ANTICIPATED ENDOCRINE HOME GOING RECOMMENDATIONS: Optimized for Discharge from Endocrine standpoint: Yes Home Going Endocrine Rx Recommendations-- Toujeo 10 units nightly Humalog 3 units TID before meals plus low dose sliding scale Outpt Follow Up-- [facility] Endocrinology SUBJECTIVE/HPI: CHIEF COMPLAINT: Chief Complaint Patient presents with Altered Mental Status Pt presents to ED via EMS from [facility] for responding slowly and indicates he is cold. José Manuel Ashton is a 63 yo male who presented to ED from [facility] with Tremor, chills and delayed response. Patient has baseline cognitive limitations but is able to answer questions. PMH: ESRD on dialysis, DM Type of DM: 2 Onset of DM: Before 2020 Home DM Medication Regimen: Toujeo 18 units daily Humalog 8 units TID AC plus medium dose sliding scale DM control (last A1c/glucose data): Lab Results Component Value Date HGBA1C 5.5 11/26/2024 Interval history: 11/29/2024 Patient resting in bed Just finishing dialysis Plan for discharge to SNF today Appetite is ok Only complaint is pain in his hands Denies CP, N/V, abd pain Weakness and chills resolved Concerned he will receive pain meds at [facility] BG controlled no change in doses 11/28/2024 Patient alert and oriented sitting up in chair at bedside. VSS on RA Diet: Carb control Tolerating diet Endorses bilateral upper extremity pain, weakness 11/27 Patient alert and oriented lying in bed - Responses delayed when asking about orientation. BGL reviewed and listed below VSS on RA Diet: Carb Tolerating diet Denies n/v, abdominal pain, chest pain, shortness of breath Endorses weakness when ambulating and feels confused on IVABX 11/26 Patient alert sitting up in bed Patient reports he resides at [facility] Patient not sure of insulin doses at [facility] - Does not give his own injections. Reports blood sugars are checked before meals but not sure what blood sugar levels are. Carb controlled diet Patient reports tremors, chills Feels unsteady on feet. PT was stopped at SNF per patient. Patient on IV vanc Glucose Date/Time Value Ref Range Status 11/29/2024 08:41 AM 140 (H) 70 - 100 mg/dL Final 11/28/2024 07:48 PM 119 (H) 70 - 100 mg/dL Final 11/28/2024 04:52 PM 131 (H) 70 - 100 mg/dL Final 11/28/2024 11:45 AM 137 (H) 70 - 100 mg/dL Final 11/28/2024 08:07 AM 128 (H) 70 - 100 mg/dL Final 11/27/2024 08:19 PM 158 (H) 70 - 100 mg/dL Final Previously used medications: Metformin Lantus Actos Trulicity Ozempic Review of Systems Neurological: Positive for numbness. ROS negative except for those mentioned in HPI. OBJECTIVE: Vitals: 11/29/24 1230 11/29/24 1245 11/29/24 1300 11/29/24 1315 BP: 121/84 142/77 140/79 132/79 BP Location: Patient Position: Pulse: 90 85 86 86 Resp: Temp: TempSrc: SpO2: Weight: Height: Physical Exam Vitals reviewed. Constitutional: General: He is not in acute distress. Appearance: Normal appearance. He is obese. HENT: Head: Normocephalic. Eyes: Pupils: Pupils are equal, round, and reactive to light. Cardiovascular: Rate and Rhythm: Normal rate and regular rhythm. Pulses: Normal pulses. Heart sounds: Normal heart sounds. Pulmonary: Effort: Pulmonary effort is normal. Breath sounds: Normal breath sounds. Musculoskeletal: General: No swelling. Normal range of motion. Skin: General: Skin is warm and dry. Neurological: Mental Status: He is alert and oriented to person, place, and time. Psychiatric: Mood and Affect: Mood normal. Behavior: Behavior normal. 24 hour intake/output:No intake or output data in the 24 hours ending 11/29/24 1346 Diet: Adult diet Regular; 5 carb choices (75 gm/meal) Medications (as per EMR): HomeMeds: Current Outpatient Medications Medication Instructions acetaminophen (TYLENOL) 325 mg, Every 6 hours PRN amLODIPine (NORVASC) 5 mg, Oral, Daily bisacodyl (DULCOLAX) 5 mg, Daily PRN bisacodyl (DULCOLAX) 10 mg, Daily PRN cyclobenzaprine (FLEXERIL) 5 mg, 3 times daily PRN diazePAM (VALIUM) 10 mg, Every 8 hours PRN hydrALAZINE (APRESOLINE) 50 mg, 2 times daily insulin glargine (LANTUS) 10 Units, SubCUTAneous, Nightly ipratropium-albuterol (Duo-Neb) 0.5-2.5 mg/3 mL nebulizer solution 3 mL, Nebulization, Every 4 hours PRN oxyCODONE (ROXICODONE) 10 mg, Oral, Every 6 hours PRN Scheduled Meds:Scheduled Meds[1] Continuous Infusions:Continuous Meds[2] PRN Meds:PRN Meds[3] Diagnostic Workup: I reviewed pertinent Laboratory results, Radiographic results, and Other Clinical Notes at the time of today's encounter. Labs: No components found for: "LABA1C" No components found for: "EAG" Lab Results Component Value Date NA 144 11/29/2024 K 5.1 11/29/2024 CL 109 (H) 11/29/2024 CO2 26 11/29/2024 BUN 58 (H) 11/29/2024 CREATININE 5.79 (H) 11/29/2024 GLUCOSE 166 (H) 11/29/2024 CALCIUM 8.9 11/29/2024 No results found for: "CHLPL", CHOL No results found for: "TRIG" No results found for: "HDL" No results found for: "LDLCALC" No results found for: "VLDL" No results found for: CHOLHDLRATIO No results found for: "[id number]" Lab Results Component Value Date TSH 3.04 11/28/2024 Radiology reportsas per the Radiologist Radiology: POCT glucose meter Result Date: 11/25/2024 Performed by: Felicita Daly, [address] [place] [id number] CLIA ID: [id number] POCT glucose meter Result Date: 11/25/2024 Performed by: Felicita Daly, [address] [place] [id number] CLIA ID: [id number] POCT glucose meter Result Date: 11/25/2024 Performed by: Felicita Daly, [address] [place] [id number] CLIA ID: [id number] ECG 12 lead Sinus rhythm Low voltage, extremity leads EKG from interpretation shows normal sinus rhythm at a rate of 80 with normal axis. There is low voltage in extremity leads. There is an abnormal R wave progression versus old septal infarct. There is no acute ST elevation or ST depression. Intervals are within normal limits otherwise. There were no old EKGs available for comparison. Electronically Signed On 11-25-2024 14:52:25 EDT by Omid Adames XR chest 1 view Result Date: 11/25/2024 Patient Name: [facility]OS[facility] MANUEL ASHTON [facility] 1960 [id number] Exam Date/Time: 11/25/2024 12:25 Procedure: XR CHEST 1 VIEW Ordering Provider: ADAMES TARAS Reason For Exam: Muscle weakness (generalized) PORTABLE CHEST CLINICAL INDICATION: Muscle weakness (generalized) TECHNIQUE: Portable AP COMPARISON: None FINDINGS: Tunneled right IJ dialysis catheter tip terminates over the proximal right atrium. Calcified granuloma overlying the left upper lung zone. No focal consolidation or pulmonary edema. No pleural effusions or pneumothorax. The cardiac and mediastinal silhouettes are normal. The osseous structures are unremarkable. No focal consolidation or pulmonary edema. Report Dictated on Electronically Signed By: Kj Duran MD Electronically Signed Date/Time: 11/25/2024 12:40 PM EDT History/Other: Past Medical History: Medical History[4] Past Surgical History: Surgical History[5] Allergy(ies): Allergies[6] Family History: Family History[7] Social History: Social History[8] Portions of the information within this encounter were entered using an electronic dictation system. Best attempts were made to edit/proofread the information prior to note completion. Despite the review of information, some errors may remain. If there are questions related to the information contained within the note please contact the signing physician directly. I spent 25 minutes with the pt which involved coordination of care, medical evaluation, review of records, and/or counseling of the pt regarding his/her condition/disease state/prognosis on the date of this note. [1] amLODIPine, 5 mg, Oral, Daily [START ON 11/30/2024] chlorhexidine, , Topical, Daily cyclobenzaprine, 5 mg, Oral, TID heparin, 5,000 Units, SubCUTAneous, 2 times per day hydrALAZINE, 50 mg, Oral, BID insulin glargine, 10 Units, SubCUTAneous, Nightly insulin lispro, 0-6 Units, SubCUTAneous, TID WC insulin lispro, 3 Units, SubCUTAneous, TID WC oxyCODONE-acetaminophen, 1 tablet, Oral, Once vancomycin (Vancocin) intermittent dosing (placeholder), , Other, See admin instructions [2] [3] PRN medications: acetaminophen OR acetaminophen, dextrose, dextrose, diazePAM, glucagon (rDNA), glucose, heparin flush, heparin, heparin, heparin, heparin, ipratropium-albuterol, naloxone, ondansetron ODT OR ondansetron, oxyCODONE, polyethylene glycol (PEG) 3350 [4] Past Medical History: Diagnosis Date Anemia 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 No pertinent surgical history. [6] Allergies Allergen Reactions Penicillins Unknown Pt states he thinks he had a reaction as a child [7] No family history on file. [8] Images from the original note were not included. OCCUPATIONAL THERAPY [facility]'s Name/MRN: José Manuel Ashton ([id number]) Date: 11/29/2024 Pt intended for OT treatment this date. Upon arrival, pt completing dialysis at this time and unavailable for therapy treatment. Will continue to follow and attempt as appropriate this admission. Emerson Mendoza OT Nutrition Assessment Type and Reason for Visit: Initial, RD Nutrition Re-Screen/LOS (DT ref for ESRD on HD) Nutrition Recommendations/Plan: Continue with Adult diet Regular; 5 carb choices (75 gm/meal) Initiate Glucerna Shake once daily per MNT protocol. Glucerna Shake provides 220 kcals and 10g protein per 8 oz serving. Please document pt's PO intakes via flowsheet to accurately assess PO intake adequacy. Monitor intakes, weights, and labs weekly. RD will follow. Malnutrition Assessment: Malnutrition Status: No malnutrition Context: Acute Illness Findings of the 6 clinical characteristics of malnutrition: Energy Intake: Mild decrease in energy intake (Comment) Weight Loss: No significant weight loss Body Fat Loss: No significant body fat loss Muscle Mass Loss: No significant muscle mass loss Fluid Accumulation: Mild Generalized Windows Admin Strength: Not Performed Nutrition Assessment: Pt is a 63 y/o male admitted to [facility] with complaints of Chills, weakness, and lethargy, no c/o CP, cough, nausea, vomiting. Respiratory panel wnl, COVID negative. Pt has ESRD on HD- on a Monday through Monday schedule at [facility]. Pt reports having a fair to decreased appetite. Pt is interested in trying Glucerna Shake once daily until his intakes/appetite is more consistent. Pt is unsure of his dry weight stating that he is not sure what a dry weight is. RD explained that it is a targeted weight. Per wt history, weighed 254# (07/10/24). Pt stated "that sounds about right." Pt's CBW 265#. Estimated Daily Nutrient Needs: Energy Requirements Based On: Kcal/kg Weight Used for Energy Requirements: [place] Weight for Energy Calculation (kg): 75 kg Total Energy Requirements (kcals/day): 8638-6218 kcals (25-30 kcals/kg) Weight Used for Protein Requirements: [place] Weight in Kg Used for Protein Requirements: 75 kg Estimated Total Protein (g/day): 90-105g (1.2-1.4g/kg) Estimated Daily Total Fluid (ml/day): urine output+1000 ml/day or per MD Nutrition Related Findings: non pitting generalized edema; BUN 43, Cr 4.87, GFR 12.6, Glucose 128, 158, 137, Albumin 2.8, Hgb 8.5, Hct 26.4, Hgb A1c 5.5%; Lantus, Humalog, Vancocin Wound Type: (red coccyx) Current Nutrition Therapies: Adult diet Regular; 5 carb choices (75 gm/meal) Current Oral Intake Average Meal Intake: 76-100% Average Supplements Intake: None Ordered Anthropometric Measures: Height: 177.8 cm (5' 10") Current Body Weight: 120 kg (265 lb) Weight Source: Not Specified Admission Body Weight: 113 kg (250 lb) Usual Body Weight: 115 kg (254 lb) (07/10/24) % Weight Change (Calculated): 4.3 [place] Body Weight (lbs) (Calculated): 166 lbs [place] Body Weight (Kg) (Calculated): 75 kg % [place] Body Weight (Calculated): 159.6 % BMI (kg/m2) (Calculated): 38 Weight Adjustment For: No Adjustment BMI Categories: Obese Class 2 (BMI 35.0 -39.9) Nutrition Diagnosis: Altered nutrition-related lab values related to renal dysfunction as evidenced by lab values Increased nutrient needs related to increase demand for energy/nutrients as evidenced by dialysis Nutrition Interventions: Nutrition Education/Counseling: No recommendation at this time Coordination of Nutrition Care: Continue to monitor while inpatient Plan of Care discussed with: Patient Goals: Goals: PO intake 75% or greater, by next RD assessment, other (specify) Specify Other Goals: Labs will trend towards baseline Nutrition Monitoring and Evaluation: Behavioral-Environmental Outcomes: None Identified Food/Nutrient Intake Outcomes: Diet Advancement/Tolerance, Food and Nutrient Intake, Supplement Intake Physical Signs/Symptoms Outcomes: Biochemical Data, GI Status, Nausea or Vomiting, Fluid Status or Edema, Nutrition Focused Physical Findings, Skin Discharge Planning: Continue current diet, Continue Oral Nutrition Supplement Arlin Juárez RD Contact: *[phone] or via Secure Chat Images from the original note were not included. OCCUPATIONAL THERAPY [facility] Treatment Note Name/MRN: José Manuel Ashton ([id number]) Date of : 1960 Age: 63 y.o. Room[facility]: [facility] A Visit #: 1 out of 7 Discharge Recommendation: Long Term Facility Equipment Needed: No Assessment Patient was seen for OT treatment this date focusing on functional transfers/mobility with a front wheel walker. He continues to be limited by increased weakness, instability, and remains a high fall risk this date. He is currently mod assist for functional transfers and mod assist for short functional mobility this date with a front wheel walker. Increased noted lower extremity buckling throughout requiring assistance from therapist to maintain upright posture. He will continue to benefit from skilled OT services to address the below. Recommend plan discharge for SNF at this time. Subjective Pleasant and cooperative. Okay to see per RN. Agreeable to therapy treatment. Pain: 0-10 pain scale: 8/10 Location: BUE hands and BLE knees Medical Precautions: No active isolations Proper PPE donned/doffed in accordance with facility standards. Fall Risk: Smith Fall Risk Score: 60 (High Risk) Precautions/Restrictions: skin care precautions Family/Caregiver Present: none Objective Bed Mobility Supine to sit: Min Assist Scooting: Min Assist Head of bed elevated. Denies dizziness positional changes. Min assist overall for supine to sit mobility as well as for scooting at edge of bed. Increased reliance on pull upon therapist to reach edge of bed with patient able to mobilize bilateral lower extremities to edge of bed without physical assist. Increased reliance on bed rails to complete. Patient up in recliner following session. Transfers/Mobility Sit to stand: Mod Assist Stand to sit: Mod Assist Stand step: Mod Assist Functional mobility: Mod Assist Patient completed sit to stands x 2 this date, x 1 from edge of bed and x 1 from recliner with mod assist overall. Increased time required to complete with cueing and education provided for positioning of bilateral lower extremities as well as body mechanics this date with good teach back noted at this time. Patient with good hand placement for push up from/reach back for seated surfaces with good bilateral lower EXTR management for proper base of support following initial education. Mod assist overall for lifting to standing as well as for controlled descent this date during positional changes. He was able to complete short stand step transfer from edge of bed to recliner with mod assist overall and noted lower extremity buckling during completion. Have reliance on front wheel walker for stability with patient grossly able to self-correct during alex however fatigues during out of activity. He was able to complete approximately [address] in standing before returning to sitting. Following seated rest break in recliner. Patient was able to complete additional stand and short mobility with approximately 6 steps forwards and backwards with increased reliance on front wheel walker. Device(s) used: Front wheeled walker Plan Continue acute OT per plan of care. Safety/Education Safety Safety Devices in place: All fall risk precautions in place, call light within reach, left in chair, gait belt, patient at risk for falls, nurse notified, and no alarms engaged upon entry Restraints: No Education Education Given To: patient Education Provided: OT Role, Plan of Care, Transfer Training, Energy Conservation, Equipment, Fall Prevention Education, and Benefits of Increasing Activity Education Method: Verbal, Demonstration, and Teach Back Barriers to Learning: None Education Outcome: Verbalized Understanding and Demonstrated Understanding AM-PAC AM-PAC Inpatient Daily Activity Raw Score: 15 ADL Inpatient CMS G-Code Modifier: CK Goals Patient Stated Goal: to get my pain under control Encounter Problems Encounter Problems (Active) Balance Patient will maintain static standing balance for 3 minutes with CGA in order to demonstrate decreased risk of falling. (Progressing) Start: 11/26/24 Expected End: 12/04/24 Dressing Upper Extremities Patient will complete upper body dressing Mod I (Not Progressing) Start: 11/26/24 Expected End: 12/04/24 Dressings Lower Extremities Patient will dress lower body Min A (Not Progressing) Start: 11/26/24 Expected End: 12/04/24 Toileting Patient will complete toileting tasks at standard toilet with modified independence. (Initiated) Start: 11/26/24 Expected End: 12/04/24 Transfers Patient will complete functional transfer with least restrictive device with SBA in order to prepare for functional mobility. (Progressing) Start: 11/26/24 Expected End: 12/04/24 Patient will perform bed mobility with min assist in order to improve independence and prepare for out of bed mobility. (Progressing) Start: 11/26/24 Expected End: 12/04/24 Therapy Time Individual Co-treatment Time In 1100 Time Out 1125 Minutes 25 Timed Code Treatment Minutes: 25 Minutes (Ther Act x2) Emerson Mendoza OT Portions of the information within this encounter were entered using an electronic dictation system. Best attempts were made to edit/proofread the information prior to note completion. Despite the review of information, some errors may remain. If there are questions related to the information contained within the note please contact the signing provider directly. Department of Internal Medicine Division of Endocrinology, Diabetes, & Metabolism Endocrinology Note Patient Name: José Manuel Ashton : 1960 AGE: 63 y.o. Room/Bed: [facility] Admission Date: 11/25/2024 Visit Date: 11/28/2024 Reason for Endocrine Consult: DM/Pt on U300 insulin Provider/Team Requesting Consult: Dr. Hills PCP: Brittaney Garcia MD Outpt [place] [facility]: Yes [facility] ASSESSMENT: Type 2 diabetes mellitus with hyperglycemia, with chcf insulin use Lethargy and chills HTN DM2 ESRD Anemia Hyperlipidemia Depression Class 3 obesity PLAN: Continue Lantus 10 units nightly Continue Humalog 3 units TID with meals Continue humalog sliding scale to Low dose TID with meals. ICU goal <180 GMF goal <150 POCT BG ACHS Hypoglycemia management per protocol Carb controlled diet ANTICIPATED ENDOCRINE HOME GOING RECOMMENDATIONS: Optimized for Discharge from Endocrine standpoint: Yes Home Going Endocrine Rx Recommendations-- Toujeo 10 units nightly Humalog 3 units TID before meals plus low dose sliding scale Outpt Follow Up-- [facility] Endocrinology SUBJECTIVE/HPI: CHIEF COMPLAINT: Chief Complaint Patient presents with Altered Mental Status Pt presents to ED via EMS from [facility] for responding slowly and indicates he is cold. José Manuel Ashton is a 63 yo male who presented to ED from [facility] with Tremor, chills and delayed response. Patient has baseline cognitive limitations but is able to answer questions. PMH: ESRD on dialysis, DM Type of DM: 2 Onset of DM: Before 2020 Home DM Medication Regimen: Toujeo 18 units daily Humalog 8 units TID AC plus medium dose sliding scale DM control (last A1c/glucose data): Lab Results Component Value Date HGBA1C 5.5 11/26/2024 Interval history:11/28/2024 Patient alert and oriented sitting up in chair at bedside. VSS on RA Diet: Carb control Tolerating diet Endorses bilateral upper extremity pain, weakness 11/27 Patient alert and oriented lying in bed - Responses delayed when asking about orientation. BGL reviewed and listed below VSS on RA Diet: Carb Tolerating diet Denies n/v, abdominal pain, chest pain, shortness of breath Endorses weakness when ambulating and feels confused on IVABX 11/26 Patient alert sitting up in bed Patient reports he resides at [facility] Patient not sure of insulin doses at [facility] - Does not give his own injections. Reports blood sugars are checked before meals but not sure what blood sugar levels are. Carb controlled diet Patient reports tremors, chills Feels unsteady on feet. PT was stopped at SNF per patient. Patient on IV vanc Glucose Date/Time Value Ref Range Status 11/28/2024 11:45 AM 137 (H) 70 - 100 mg/dL Final 11/28/2024 08:07 AM 128 (H) 70 - 100 mg/dL Final 11/27/2024 08:19 PM 158 (H) 70 - 100 mg/dL Final 11/27/2024 11:17 AM 137 (H) 70 - 100 mg/dL Final 11/27/2024 08:09 AM 142 (H) 70 - 100 mg/dL Final 11/26/2024 08:00 PM 180 (H) 70 - 100 mg/dL Final Previously used medications: Metformin [facility] Review of Systems Constitutional: Positive for chills and fatigue. Respiratory: Negative for shortness of breath. Cardiovascular: Negative for chest pain and palpitations. Neurological: Positive for weakness. Negative for tremors. ROS negative except for those mentioned in HPI. OBJECTIVE: Vitals: 11/28/24 0600 11/28/24 0735 11/28/24 0758 11/28/24 1142 BP: 105/70 129/66 BP Location: Left arm Left arm Patient Position: Lying Sitting Pulse: 88 86 86 Resp: 15 17 Temp: 36.5 C (97.7 F) 36.2 C (97.1 F) TempSrc: Temporal Temporal SpO2: 96% 96% Weight: 265 lb 8 oz (120 kg) Height: Physical Exam Vitals and nursing note reviewed. Constitutional: General: He is not in acute distress. Appearance: He is not toxic-appearing or diaphoretic. HENT: Head: Normocephalic. Nose: Nose normal. Mouth/Throat: Mouth: Mucous membranes are moist. Eyes: Conjunctiva/sclera: Conjunctivae normal. Cardiovascular: Rate and Rhythm: Normal rate and regular rhythm. Pulses: Normal pulses. Heart sounds: Normal heart sounds. Pulmonary: Effort: Pulmonary effort is normal. Musculoskeletal: Right lower leg: No edema. Left lower leg: No edema. Skin: General: Skin is warm. Neurological: Mental Status: He is alert. Psychiatric: Mood and Affect: Mood normal. Behavior: Behavior normal. 24 hour intake/output: Intake/Output Summary (Last 24 hours) at 11/28/2024 1258 Last data filed at 11/28/2024 0300 Gross per 24 hour Intake 780 ml Output 2000 ml Net -1220 ml Diet: Adult diet Regular; 5 carb choices (75 gm/meal) Medications (as per EMR): HomeMeds: Current Outpatient Medications Medication Instructions acetaminophen (TYLENOL) 325 mg, Every 6 hours PRN bisacodyl (DULCOLAX) 5 mg, Daily PRN bisacodyl (DULCOLAX) 10 mg, Daily PRN cyclobenzaprine (FLEXERIL) 5 mg, 3 times daily PRN diazePAM (VALIUM) 10 mg, Every 8 hours PRN hydrALAZINE (APRESOLINE) 50 mg, 2 times daily oxyCODONE (ROXICODONE) 10 mg, Every 6 hours PRN Scheduled Meds:Scheduled Meds[1] Continuous Infusions:Continuous Meds[2] PRN Meds:PRN Meds[3] Diagnostic Workup: I reviewed pertinent Laboratory results, Radiographic results, and Other Clinical Notes at the time of today's encounter. Labs: No components found for: "LABA1C" No components found for: "EAG" Lab Results Component Value Date NA 143 11/28/2024 K 4.7 11/28/2024 CL 106 11/28/2024 CO2 27 11/28/2024 BUN 43 (H) 11/28/2024 CREATININE 4.87 (H) 11/28/2024 GLUCOSE 135 (H) 11/28/2024 CALCIUM 8.8 11/28/2024 No results found for: "CHLPL", CHOL No results found for: "TRIG" No results found for: "HDL" No results found for: "LDLCALC" No results found for: "VLDL" No results found for: CHOLHDLRATIO No results found for: "TDVX37CHH" Lab Results Component Value Date TSH 3.04 11/28/2024 Radiology reportsas per the Radiologist Radiology: POCT glucose meter Result Date: 11/25/2024 Performed by: Felicita Daly, [address] [place] [id number] CLIA ID: [id number] POCT glucose meter Result Date: 11/25/2024 Performed by: Felicita Daly, [address] [place] [id number] CLIA ID: [id number] POCT glucose meter Result Date: 11/25/2024 Performed by: Felicita Daly, [address] [place] [id number] CLIA ID: [id number] ECG 12 lead Sinus rhythm Low voltage, extremity leads EKG from interpretation shows normal sinus rhythm at a rate of 80 with normal axis. There is low voltage in extremity leads. There is an abnormal R wave progression versus old septal infarct. There is no acute ST elevation or ST depression. Intervals are within normal limits otherwise. There were no old EKGs available for comparison. Electronically Signed On 11-25-2024 14:52:25 EDT by Omid Adames XR chest 1 view Result Date: 11/25/2024 [facility] Name: [facility]EL ASHTON [facility] 1960 [id number] Exam Date/Time: 11/25/2024 12:25 Procedure: XR CHEST 1 VIEW Ordering Provider: ADAMES TARAS Reason For Exam: Muscle weakness (generalized) PORTABLE CHEST CLINICAL INDICATION: Muscle weakness (generalized) TECHNIQUE: Portable AP COMPARISON: None FINDINGS: Tunneled right IJ dialysis catheter tip terminates over the proximal right atrium. Calcified granuloma overlying the left upper lung zone. No focal consolidation or pulmonary edema. No pleural effusions or pneumothorax. The cardiac and mediastinal silhouettes are normal. The osseous structures are unremarkable. No focal consolidation or pulmonary edema. Report Dictated on Electronically Signed By: Kj Duran MD Electronically Signed Date/Time: 11/25/2024 12:40 PM EDT History/Other: Past Medical History: Medical History[4] Past Surgical History: Surgical History[5] Allergy(ies): Allergies[6] Family History: Family History[7] Social History: Social History[8] Portions of the information within this encounter were entered using an electronic dictation system. Best attempts were made to edit/proofread the information prior to note completion. Despite the review of information, some errors may remain. If there are questions related to the information contained within the note please contact the signing physician directly. I spent 25 minutes with the pt which involved coordination of care, medical evaluation, review of records, and/or counseling of the pt regarding his/her condition/disease state/prognosis on the date of this note. [1] amLODIPine, 5 mg, Oral, Daily cyclobenzaprine, 5 mg, Oral, TID heparin, 5,000 Units, SubCUTAneous, 2 times per day hydrALAZINE, 50 mg, Oral, BID insulin glargine, 10 Units, SubCUTAneous, Nightly insulin lispro, 0-6 Units, SubCUTAneous, TID WC insulin lispro, 3 Units, SubCUTAneous, TID WC oxyCODONE-acetaminophen, 1 tablet, Oral, Once vancomycin (Vancocin) intermittent dosing (placeholder), , Other, See admin instructions [2] [3] PRN medications: acetaminophen OR acetaminophen, dextrose, dextrose, diazePAM, glucagon (rDNA), glucose, ipratropium-albuterol, naloxone, ondansetron ODT OR ondansetron, oxyCODONE, polyethylene glycol (PEG) 3350 [4] Past Medical History: Diagnosis Date Anemia 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 No pertinent surgical history. [6] Allergies Allergen Reactions Penicillins Unknown Pt states he thinks he had a reaction as a child [7] No family history on file. [8] Hospitalist Progress Note 11/28/2024 Subjective: Admit Date: 11/25/2024 PCP: Brittaney Garcia MD Room#: [id number] A Interval History: No cp, sob, cough, n/v, f/c. Continues to have myoclonic jerking and difficulty handling things. Tolerating diet. Case and plan discussed with patient and LEATHA Auguste, separately. All questions answered. Adult diet Regular; 5 carb choices (75 gm/meal) 24HR INTAKE/OUTPUT: Intake/Output Summary (Last 24 hours) at 11/28/2024 1152 Last data filed at 11/28/2024 0300 Gross per 24 hour Intake 780 ml Output 2000 ml Net -1220 ml Past Medical History: Medical History[1] LABS: CBC: Recent Labs 11/25/24 1252 11/27/24 0339 11/28/24 0641 WBC 6.9 5.0 5.1 RBC 3.15* 2.93* 2.88* HGB 9.2* 8.5* 8.5* HCT 28.8* 26.7* 26.4* MCV 91.4 91.1 91.7 RDW 13.0 12.6 12.8 PLT 220 216 227 BMP: Recent Labs 11/26/24 0457 11/27/24 0339 11/28/24 0641 NA 140 144 143 K 4.4 4.8 4.7 CL 105 106 106 CO2 24 27 27 BUN 56* 67* 43* CREATININE 5.70* 6.86* 4.87* GLUCOSE 123* 161* 135* CALCIUM 9.0 9.0 8.8 ANIONGAP 11 11 10 LIVER PROFILE: Recent Labs 11/26/24 0457 11/27/24 0339 11/28/24 0641 AST 21 17 28 ALT 14 16 34 BILITOT 0.4 0.4 0.4 ALKPHOS 95 94 111 PROT 6.4 6.2* 6.1* PT/INR: No results for input(s): "PROTIME", "INR" in the last 72 hours. CARDIAC ENZYMES: No results for input(s): "TROPONINI" in the last 72 hours. Procalcitonin: Lab Results Component Value Date PROCAL 0.30 (H) 11/26/2024 COVID-19 PCR: No results for input(s): "COVID19" in the last 72 hours. Objective: Vitals: BP 129/66 (BP Location: Left arm, Patient Position: Sitting) Pulse 86 Temp 36.2 C (97.1 F) (Temporal) Resp 17 Ht 5' 10" (1.778 m) Wt 265 lb 8 oz (120 kg) SpO2 96% BMI 38.10 kg/m Pulse Ox: SpO2 Av.8 % Min: 93 % Max: 98 % Supplemental O2: O2 Flow Rate (L/min): 2 L/min Physical Exam Vitals and nursing note reviewed. Constitutional: General: He is not in acute distress. Appearance: He is obese. HENT: Head: Normocephalic. Eyes: Conjunctiva/sclera: Conjunctivae normal. Pupils: Pupils are equal, round, and reactive to light. Cardiovascular: Rate and Rhythm: Normal rate and regular rhythm. Pulses: Normal pulses. Heart sounds: Murmur heard. Pulmonary: Effort: Pulmonary effort is normal. Comments: Coarse breath sounds bilaterally Abdominal: General: Bowel sounds are normal. There is no distension. Palpations: Abdomen is soft. Tenderness: There is no abdominal tenderness. Musculoskeletal: Cervical back: Normal range of motion. Right lower leg: No edema. Left lower leg: No edema. Skin: General: Skin is warm. Capillary Refill: Capillary refill takes less than 2 seconds. Neurological: General: No focal deficit present. Mental Status: He is alert and oriented to person, place, and time. Mental status is at baseline. Comments: Continues to have intermittent myoclonic jerking movements of UE Psychiatric: Mood and Affect: Mood normal. Medications: Scheduled PRN Scheduled Meds[2] PRN Meds[3] Continuous Continuous Meds[4] Assessment Lethargy and chills Myoclonic jerks and twitching Rule out infection HTN DM2 ESRD Anemia Hyperlipidemia Depression Class 3 obesity Plan Continue to monitor on telemetry, continue IV antibiotics for now- if cultures remain negative then dc tomorrow, continue to follow cultures, Neurology evaluating, Endocrinology and Nephrology following, continue HD per routine, PT/OT, follow up labs, continue POCT/SS insulin/scheduled insulin, discharge planning, see orders. - am labs, replace lytes prn - PT/OT/CM/SW - delirium precautions: increase activity - DVT prophylaxis: heparin and encourage ambulation Advance Directive: Full Code Anticipated Discharge - Date - 11/29-11/30 - Location - Skilled Facility - Pending the following - clinical improvement, antibiotic finalization and when OK with consultants Total time spent (which include face to face and non face to face encounters) : 46 minutes Toxic drug monitoring/narrow therapeutic index drug monitoring : # Drug name : vancomycin, SS insulin and heparin # Route administered : IV and subcutaneous and subcutaneous # Method of monitoring : blood levels/daily BMP and ac/hs blood glucose/daily BMP/hypoglycemia protocol and daily CBC Extended Emergency Contact Information Primary Emergency Contact: Janell Waldrop Mobile Relation: Sister Preferred language: Bahraini [employer] needed? 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 Chronic kidney disease (CKD) Cognitive communication deficit Depression Difficulty walking Dizziness Hyperkalemia Hyperlipemia Hyperosmolality and hypernatremia Hypertension Malignant neoplasm of rectum (HCC) Muscle weakness Need for assistance with personal care Other specified polyneuropathies Other symbolic dysfunctions Radiculopathy, lumbar region Spinal stenosis Type 2 diabetes mellitus (HCC) Vitamin D deficiency [2] amLODIPine, 5 mg, Oral, Daily cyclobenzaprine, 5 mg, Oral, TID heparin, 5,000 Units, SubCUTAneous, 2 times per day hydrALAZINE, 50 mg, Oral, BID insulin glargine, 10 Units, SubCUTAneous, Nightly insulin lispro, 0-6 Units, SubCUTAneous, TID WC insulin lispro, 3 Units, SubCUTAneous, TID WC oxyCODONE-acetaminophen, 1 tablet, Oral, Once vancomycin (Vancocin) intermittent dosing (placeholder), , Other, See admin instructions [3] PRN medications: acetaminophen OR acetaminophen, dextrose, dextrose, diazePAM, glucagon (rDNA), glucose, ipratropium-albuterol, naloxone, ondansetron ODT OR ondansetron, oxyCODONE, polyethylene glycol (PEG) 3350 [4] Images from the original note were not included. Pharmacy Managed Vancomycin Dosing Service Progress Note Consult Date: 11/28/24 Patient Name: José Manuel Ashton Allergies: Penicillins Age: 63 y.o. Sex: male Ht: Height: 177.8 cm (5' 10") TBW: Weight: 120 kg (265 lb 8 oz) BMI: Body mass index is 38.1 kg/m . 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 11/28/24 PreHD level = 26.5 mcg/mL No dose today. Will recheck preHD level if plan is for HD tomorrow. Will adjust dose/frequency if needed according to level. Thank you for this consult. Please page/call with questions. Date: 11/28/24 Time: 9:13 AM Leida Harris RPh (available on [employer]) Images from the original note were not included. Pharmacy Managed Vancomycin Dosing Service Progress Note Consult Date: 11/27/24 Patient Name: José Manuel Ashton Allergies: Penicillins Age: 63 y.o. Sex: male Ht: Height: 177.8 cm (5' 10") TBW: Weight: 113 kg (250 lb) BMI: Body mass index is 35.87 kg/m . 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 11/27/24 PreHD level drawn at 1300 = 21.8 mcg/mL Give Vancomycin 750 mg once based on patient age, weight, renal status and infectious diagnosis (~10 mg/kg). Will adjust dose/frequency if needed according to level. Follow renal status closely. Orders placed. Thank you for this consult. Please page/call with questions. Date: 11/27/24 Time: 1:51 PM Leida Harris RPh (available on [employer]) Hospitalist Progress Note 11/27/2024 Subjective: Admit Date: 11/25/2024 PCP: Brittaney Garcia MD Room#: [id number] A Interval History: Having arm twitching and numbness bilaterally. He says he has been dropping things. Awaiting HD. Tolerating diet. No cp, sob, cough, n/v, f/c. Case and plan discussed with patient. All questions answered. Adult diet Regular; 5 carb choices (75 gm/meal) 24HR INTAKE/OUTPUT: Intake/Output Summary (Last 24 hours) at 11/27/2024 1244 Last data filed at 11/26/2024 2336 Gross per 24 hour Intake 400 ml Output 1500 ml Net -1100 ml Past Medical History: Medical History[1] LABS: CBC: Recent Labs 11/25/24 1252 11/27/24 0339 WBC 6.9 5.0 RBC 3.15* 2.93* HGB 9.2* 8.5* HCT 28.8* 26.7* MCV 91.4 91.1 RDW 13.0 12.6 PLT 220 216 BMP: Recent Labs 11/25/24 1252 11/26/24 0457 11/27/24 0339 NA 139 140 144 K 4.4 4.4 4.8 CL 99 105 106 CO2 25 24 27 BUN 49* 56* 67* CREATININE 5.14* 5.70* 6.86* GLUCOSE 178* 123* 161* CALCIUM 9.1 9.0 9.0 ANIONGAP 15* 11 11 LIVER PROFILE: Recent Labs 11/25/24 1252 11/26/24 0457 11/27/24 0339 AST 19 21 17 ALT 17 14 16 BILITOT 0.5 0.4 0.4 ALKPHOS 100 95 94 PROT 6.9 6.4 6.2* PT/INR: No results for input(s): "PROTIME", "INR" in the last 72 hours. CARDIAC ENZYMES: No results for input(s): "TROPONINI" in the last 72 hours. Procalcitonin: Lab Results Component Value Date PROCAL 0.30 (H) 11/26/2024 COVID-19 PCR: No results for input(s): "COVID19" in the last 72 hours. Objective: Vitals: BP 150/88 (BP Location: Right arm, Patient Position: Sitting) Pulse 90 Temp (!) 35.9 C (96.7 F) (Temporal) Resp 18 Ht 5' 10" (1.778 m) Wt 250 lb (113 kg) SpO2 96% BMI 35.87 kg/m Pulse Ox: SpO2 Av.5 % Min: 92 % Max: 99 % Supplemental O2: O2 Flow Rate (L/min): 2 L/min Physical Exam Vitals and nursing note reviewed. Constitutional: General: He is not in acute distress. Appearance: He is obese. He is ill-appearing. HENT: Head: Normocephalic and atraumatic. Eyes: Extraocular Movements: Extraocular movements intact. Pupils: Pupils are equal, round, and reactive to light. Cardiovascular: Rate and Rhythm: Normal rate and regular rhythm. Pulses: Normal pulses. Heart sounds: Murmur heard. Pulmonary: Effort: Pulmonary effort is normal. Comments: Coarse breath sounds bilaterally Abdominal: General: Bowel sounds are normal. There is no distension. Palpations: Abdomen is soft. Tenderness: There is no abdominal tenderness. Musculoskeletal: General: Normal range of motion. Cervical back: Neck supple. Skin: General: Skin is dry. Capillary Refill: Capillary refill takes less than 2 seconds. Neurological: General: No focal deficit present. Mental Status: He is alert and oriented to person, place, and time. Mental status is at baseline. Psychiatric: Mood and Affect: Mood normal. Medications: Scheduled PRN Scheduled Meds[2] PRN Meds[3] Continuous Continuous Meds[4] Assessment Lethargy and chills Myoclonic jerks and twitching Rule out infection HTN DM2 ESRD Anemia Hyperlipidemia Depression Class 3 obesity Plan Continue to monitor on telemetry, continue IV antibiotics, follow up cultures, will ask Neurology to see, continue to check POCT, SS insulin, Endocrinology and Nephrology following, HD, PT/OT, follow up labs, discharge planning, see orders. - am labs, replace lytes prn - PT/OT/CM/SW - delirium precautions: increase activity - DVT prophylaxis: heparin and encourage ambulation Advance Directive: Full Code Anticipated Discharge - Date - 11/29-11/30 - Location - Skilled Facility - Pending the following - clinical improvement, antibiotic finalization and when OK with Nephrology Total time spent (which include face to face and non face to face encounters) : 44 minutes Toxic drug monitoring/narrow therapeutic index drug monitoring : # Drug name : vancomycin, SS insulin and heparin # Route administered : IV and subcutaneous and subcutaneous # Method of monitoring : blood levels/daily BMP and ac/hs blood glucose/daily BMP/hypoglycemia protocol and daily CBC Extended Emergency Contact Information Primary Emergency Contact: Janell Waldrop Mobile Relation: Sister Preferred language: Bahraini [employer] needed? 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 Chronic kidney disease (CKD) Cognitive communication deficit Depression Difficulty walking Dizziness Hyperkalemia Hyperlipemia Hyperosmolality and hypernatremia Hypertension Malignant neoplasm of rectum (HCC) Muscle weakness Need for assistance with personal care Other specified polyneuropathies Other symbolic dysfunctions Radiculopathy, lumbar region Spinal stenosis Type 2 diabetes mellitus (HCC) Vitamin D deficiency [2] amLODIPine, 5 mg, Oral, Daily cyclobenzaprine, 5 mg, Oral, TID heparin, 5,000 Units, SubCUTAneous, 2 times per day hydrALAZINE, 50 mg, Oral, BID insulin glargine, 10 Units, SubCUTAneous, Nightly insulin lispro, 0-6 Units, SubCUTAneous, TID WC insulin lispro, 3 Units, SubCUTAneous, TID WC oxyCODONE-acetaminophen, 1 tablet, Oral, Once vancomycin (Vancocin) intermittent dosing (placeholder), , Other, See admin instructions [3] PRN medications: acetaminophen OR acetaminophen, dextrose, dextrose, diazePAM, glucagon (rDNA), glucose, ipratropium-albuterol, naloxone, ondansetron ODT OR ondansetron, oxyCODONE, polyethylene glycol (PEG) 3350 [4] [facility] Progress Note Subjective/ 63 y.o. year old male who we are seeing in consultation for ESRD. Interval History Admitted for weakness, chills, and lethargy Resting in bed, easily arousable Reports generalized pain BP stable Adequate PO intake ROS Otherwise negative No interval changes to [facility]. All interval notes/labs/imaging reviewed. Objective/ Vitals: 11/26/24 1600 11/26/24 1700 11/26/24200711/27/24 0809 BP: 147/67 150/88 BP Location: Left arm Right arm Patient Position: Sitting Sitting Pulse: 95 90 Resp: 20 18 Temp: 37.1 C (98.7 F) (!) 35.9 C (96.7 F) TempSrc: Temporal Temporal SpO2: 96% 92% 93% 96% Weight: Height: 24HR INTAKE/OUTPUT: Intake/Output Summary (Last 24 hours) at 11/27/2024 1222 Last data filed at 11/26/2024 2336 Gross per 24 hour Intake 400 ml Output 1500 ml Net -1100 ml Physical Exam Scheduled Meds:Scheduled Meds[1] Continuous Infusions:Continuous Meds[2] PRN Meds:.PRN Meds[3] Data/ Recent Labs 11/25/24 1252 11/27/24 0339 WBC 6.9 5.0 HGB 9.2* 8.5* HCT 28.8* 26.7* MCV 91.4 91.1 PLT 220 216 Recent Labs 11/25/24 1252 11/26/24 0457 11/27/24 0339 NA 139 140 144 K 4.4 4.4 4.8 CL 99 105 106 CO2 GLUCOSE 178* 123* 161* MG 2.0 -- -- BUN 49* 56* 67* CREATININE 5.14* 5.70* 6.86* Assessment/ 63 y.o. male with ESRD N18.6 HTN in CKD I12.9 Anemia in CKD D63.1 T2DM in CKD E11.22 Lethargy R53.83 Dependence on hemodialysis Plan/ - HD schedule is M-F at nursing facility, will run session today and attempt to remove 2 L. Patient's DW at facility was recently increased from 112.5 kg to 115 kg, he was 113 kg on admission. - Blood cultures drawn 11/25: NGTD - Strict I&Os - Daily weight - Continue with renal diet - ESRD hgb goal > 10 - Okay for prn transfusions for hgb < 7 - Avoid nephrotoxins and IV contrast dye - Dose all meds per GFR < 15 - Rest of management per primary team Plan d/w dialysis team We will follow. Please do not hesitate to call with any questions or concerns. [facility] Office This note is not finalized until authorized by Attending physician. [1] amLODIPine, 5 mg, Oral, Daily cyclobenzaprine, 5 mg, Oral, TID heparin, 5,000 Units, SubCUTAneous, 2 times per day hydrALAZINE, 50 mg, Oral, BID insulin glargine, 10 Units, SubCUTAneous, Nightly insulin lispro, 0-6 Units, SubCUTAneous, TID WC insulin lispro, 3 Units, SubCUTAneous, TID WC oxyCODONE-acetaminophen, 1 tablet, Oral, Once vancomycin (Vancocin) intermittent dosing (placeholder), , Other, See admin instructions [2] [3] PRN medications: acetaminophen OR acetaminophen, dextrose, dextrose, diazePAM, glucagon (rDNA), glucose, ipratropium-albuterol, naloxone, ondansetron ODT OR ondansetron, oxyCODONE, polyethylene glycol (PEG) 3350 Cosigned by Tosha Barriga MD at 11/27/2024 5:03 PM EDT Associated attestation - Tosha Barriga MD - 11/27/2024 5:03 PM EDT I have reviewed the above assessment and plan with the WILDLIFE CONSERVATIONIST. I agree with above note. HD today. Sees Dr. Abiel dudley outpatient. We cover his patients here. Nutrition rescreen completed. Pt referred to RD for ESRD patient on HD. Department of Internal Medicine Division of Endocrinology, Diabetes, & Metabolism Endocrinology Note Patient Name: José Manuel Ashton : 1960 AGE: 63 y.o. Room[facility]Bed: [facility] A Admission Date: 11/25/2024 Visit Date: 11/27/2024 Reason for Endocrine Consult: DM/Pt on U300 insulin Provider/Team Requesting Consult: Dr. Hills PCP: Brittaney Garcia MD Outpt [place] [employer] [facility]: Yes [facility] ASSESSMENT: Type 2 diabetes mellitus with hyperglycemia, with chcf insulin use Lethargy and chills HTN DM2 ESRD Anemia Hyperlipidemia Depression Class 3 obesity PLAN: Start Lantus 10 units nightly Start Humalog 3 units TID with meals Decrease humalog sliding scale to Low dose TID with meals. ICU goal <180 GMF goal <150 POCT BG ACHS Hypoglycemia management per protocol Carb controlled diet ANTICIPATED ENDOCRINE HOME GOING RECOMMENDATIONS: Optimized for Discharge from Endocrine standpoint: No Home Going Endocrine Rx Recommendations-- Toujeo Current dose on day of discharge Humalog Current dose on day of discharge Outpt Follow Up-- [facility] Endocrinology SUBJECTIVE/HPI: CHIEF COMPLAINT: Chief Complaint Patient presents with Altered Mental Status Pt presents to ED via EMS from [facility] for responding slowly and indicates he is cold. José Manuel Ashton is a 63 yo male who presented to ED from [facility] with Tremor, chills and delayed response. Patient has baseline cognitive limitations but is able to answer questions. PMH: ESRD on dialysis, DM Type of DM: 2 Onset of DM: Before 2020 Home DM Medication Regimen: Toujeo 18 units daily Humalog 8 units TID AC plus medium dose sliding scale DM control (last A1c/glucose data): Lab Results Component Value Date HGBA1C 5.5 11/26/2024 Interval history: Patient alert and oriented lying in bed - Responses delayed when asking about orientation. BGL reviewed and listed below VSS on RA Diet: Carb Tolerating diet Denies n/v, abdominal pain, chest pain, shortness of breath Endorses weakness when ambulating and feels confused on IVABX 11/26 Patient alert sitting up in bed Patient reports he resides at [facility] Patient not sure of insulin doses at [facility] - Does not give his own injections. Reports blood sugars are checked before meals but not sure what blood sugar levels are. Carb controlled diet Patient reports tremors, chills Feels unsteady on feet. PT was stopped at [facility] per patient. Patient on IV vanc Glucose Date/Time Value Ref Range Status 11/26/2024 08:00 PM 180 (H) 70 - 100 mg/dL Final 11/26/2024 04:45 PM 206 (H) 70 - 100 mg/dL Final 11/26/2024 11:50 AM 174 (H) 70 - 100 mg/dL Final 11/25/2024 10:17 PM 187 (H) 70 - 100 mg/dL Final 11/25/2024 08:46 PM 167 (H) 70 - 100 mg/dL Final 11/25/2024 06:45 PM 119 (H) 70 - 100 mg/dL Final Previously used medications: Metformin Lantus Actos Trulicity Ozempic Review of Systems Constitutional: Positive for chills and fatigue. Respiratory: Negative for shortness of breath. Cardiovascular: Negative for chest pain and palpitations. Neurological: Positive for weakness. Negative for tremors. ROS negative except for those mentioned in HPI. OBJECTIVE: Vitals: 11/26/24 1557 11/26/24 1600 11/26/24 1700 11/26/242007 BP: 147/67 BP Location: Left arm Patient Position: Sitting Pulse: 95 Resp: 20 Temp: 37.1 C (98.7 F) TempSrc: Temporal SpO2: 97% 96% 92% 93% Weight: Height: Physical Exam Vitals and nursing note reviewed. Constitutional: General: He is not in acute distress. Appearance: He is not toxic-appearing or diaphoretic. HENT: Head: Normocephalic. Nose: Nose normal. Mouth/Throat: Mouth: Mucous membranes are moist. Eyes: Conjunctiva/sclera: Conjunctivae normal. Cardiovascular: Rate and Rhythm: Normal rate and regular rhythm. Pulses: Normal pulses. Heart sounds: Normal heart sounds. Pulmonary: Effort: Pulmonary effort is normal. Musculoskeletal: Right lower leg: No edema. Left lower leg: No edema. Skin: General: Skin is warm. Neurological: Mental Status: He is alert. Psychiatric: Mood and Affect: Mood normal. Behavior: Behavior normal. 24 hour intake/output: Intake/Output Summary (Last 24 hours) at 11/27/2024 0754 Last data filed at 11/26/2024 2336 Gross per 24 hour Intake 400 ml Output 1500 ml Net -1100 ml Diet: Adult diet Regular; 5 carb choices (75 gm/meal) Medications (as per EMR): HomeMeds: Current Outpatient Medications Medication Instructions acetaminophen (TYLENOL) 325 mg, Every 6 hours PRN bisacodyl (DULCOLAX) 5 mg, Daily PRN bisacodyl (DULCOLAX) 10 mg, Daily PRN cyclobenzaprine (FLEXERIL) 5 mg, 3 times daily PRN diazePAM (VALIUM) 10 mg, Every 8 hours PRN hydrALAZINE (APRESOLINE) 50 mg, 2 times daily oxyCODONE (ROXICODONE) 10 mg, Every 6 hours PRN Scheduled Meds:Scheduled Meds[1] Continuous Infusions:Continuous Meds[2] PRN Meds:PRN Meds[3] Diagnostic Workup: I reviewed pertinent Laboratory results, Radiographic results, and Other Clinical Notes at the time of today's encounter. Labs: No components found for: "LABA1C" No components found for: "EAG" Lab Results Component Value Date NA 144 11/27/2024 K 4.8 11/27/2024 CL 106 11/27/2024 CO2 27 11/27/2024 BUN 67 (H) 11/27/2024 CREATININE 6.86 (H) 11/27/2024 GLUCOSE 161 (H) 11/27/2024 CALCIUM 9.0 11/27/2024 No results found for: "CHLPL", CHOL No results found for: "TRIG" No results found for: "HDL" No results found for: "LDLCALC" No results found for: "VLDL" No results found for: CHOLHDLRATIO No results found for: "OHAN29BBB" No results found for: "TSH", "X3JKBHJ", "E8CENKF", "THYROIDAB" Radiology reportsas per the Radiologist Radiology: POCT glucose meter Result Date: 11/25/2024 Performed by: Felicita Daly, [address] [place] [id number] CLIA ID: [id number] POCT glucose meter Result Date: 11/25/2024 Performed by: Felicita Daly, [address] [place] [id number] CLIA ID: [id number] POCT glucose meter Result Date: 11/25/2024 Performed by: Felicita Daly, [address] [place] [id number] CLIA ID: [id number] ECG 12 lead Sinus rhythm Low voltage, extremity leads EKG from interpretation shows normal sinus rhythm at a rate of 80 with normal axis. There is low voltage in extremity leads. There is an abnormal R wave progression versus old septal infarct. There is no acute ST elevation or ST depression. Intervals are within normal limits otherwise. There were no old EKGs available for comparison. Electronically Signed On 11-25-2024 14:52:25 EDT by Omid Adames XR chest 1 view Result Date: 11/25/2024 Patient Name: [facility]UEL ASHTON [facility] 1960 [id number] Exam Date/Time: 11/25/2024 12:25 Procedure: XR CHEST 1 VIEW Ordering Provider: ADAMES TARAS Reason For Exam: Muscle weakness (generalized) PORTABLE CHEST CLINICAL INDICATION: Muscle weakness (generalized) TECHNIQUE: Portable AP COMPARISON: None FINDINGS: Tunneled right IJ dialysis catheter tip terminates over the proximal right atrium. Calcified granuloma overlying the left upper lung zone. No focal consolidation or pulmonary edema. No pleural effusions or pneumothorax. The cardiac and mediastinal silhouettes are normal. The osseous structures are unremarkable. No focal consolidation or pulmonary edema. Report Dictated on Electronically Signed By: Kj Duran MD Electronically Signed Date/Time: 11/25/2024 12:40 PM EDT History/Other: Past Medical History: Medical History[4] Past Surgical History: Surgical History[5] Allergy(ies): Allergies[6] Family History: Family History[7] Social History: Social History[8] Portions of the information within this encounter were entered using an electronic dictation system. Best attempts were made to edit/proofread the information prior to note completion. Despite the review of information, some errors may remain. If there are questions related to the information contained within the note please contact the signing physician directly. I spent 25 minutes with the pt which involved coordination of care, medical evaluation, review of records, and/or counseling of the pt regarding his/her condition/disease state/prognosis on the date of this note. [1] amLODIPine, 5 mg, Oral, Daily cyclobenzaprine, 5 mg, Oral, TID heparin, 5,000 Units, SubCUTAneous, 2 times per day hydrALAZINE, 50 mg, Oral, BID insulin glargine, 10 Units, SubCUTAneous, Nightly insulin lispro, 0-6 Units, SubCUTAneous, TID WC insulin lispro, 3 Units, SubCUTAneous, TID WC oxyCODONE-acetaminophen, 1 tablet, Oral, Once vancomycin (Vancocin) intermittent dosing (placeholder), , Other, See admin instructions [2] [3] PRN medications: acetaminophen OR acetaminophen, dextrose, dextrose, diazePAM, glucagon (rDNA), glucose, ipratropium-albuterol, naloxone, ondansetron ODT OR ondansetron, oxyCODONE, polyethylene glycol (PEG) 3350 [4] Past Medical History: Diagnosis Date Anemia 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 No pertinent surgical history. [6] Allergies Allergen Reactions Penicillins Unknown Pt states he thinks he had a reaction as a child [7] No family history on file. [8] Images from the original note were not included. PHYSICAL THERAPY [facility] Initial Evaluation Name/MRN: José Manuel Ashton ([id number]) Evaluation Date: 11/26/2024 Date of : 1960 Admission Date: 11/25/2024 12:06 PM Age: 63 y.o. Room/Bed: B4-466/B4-466 A Discharge Recommendation: Long Term Facility Equipment Needed: No Assessment IMPRESSION: Pt is a 63 y.o. male admitted 11/25 with weakness, chills, lethargy. Pt reports he has been at SNF for 1-2 months and required assist for stand pivot to w/c. Pt is currently requiring SBA to min A for bed mobility, mod A x1 for functional transfers, min A for lateral steps EOB. Pt is currently limited by endurance, fatigue and will benefit from acute skilled PT to address current deficits. Recommend SNF. Admitting Diagnosis: admitted 11/25 with weakness, chills, lethargy Prognosis: good Performance Deficits /Impairments: Increased Pain, Decreased Functional Mobility, Decreased Strength, Decreased Endurance, and Decreased Balance Decision Making: Medium Complexity Subjective Pt pleasant and agreeable to therapy session Per RN okay for therapy Pain: 0-10 pain scale: 8/10 Location: B hands Past Medical History: Medical History[1] Past Surgical History: Surgical History[2] Admission Diagnosis: Patient Active Problem List Diagnosis Date Noted Chills 11/25/2024 Medical Precautions: Droplet Plus Proper PPE donned/doffed in accordance with facility standards. Fall Risk: Smith Fall Risk Score: 60 (High Risk) Precautions/Restrictions: skin care precautions Family/Caregiver Present: none Overall Cognitive Status: WFL Overall Orientation Status: Oriented x4 Vision: Not Assessed Hearing: normal Social/Functional History Patient admitted from SNF. Assistive Equipment: front wheeled walker, cane, and wheelchair - manual Prior Level of Function Prior Level of ADL Function: Required Assist Prior Level of Mobility: Required Assist; Device: Front wheeled walker and Wheelchair - manual Prior Level of Transfers: Required Assist Objective Lower Extremity Assessment AROM: WFL Strength: Exceptions: 2+/5 B knee extension, B hip flexion Balance: Balance During Session: Posture: fair Sitting - Static: SBA Sitting - Dynamic: SBA Standing - Static: Min Assist Standing - Dynamic: Min Assist Bed Mobility: Supine to sit: Min Assist Sit to supine: SBA Pt completes supine->sit requiring min A x1 to elevate trunk into upright sitting. Pt returns to supine at SBA with increased time and effort to complete. Cues provided throughout for sequencing. Transfers Sit to stand: Mod Assist Stand to sit: Mod Assist X1 unsuccessful stand from EOB at lowest height and max A x1. EOB elevated with pt able to stand with mod A x1 to elevate and assist in controlled descent. Cues provided for hand placement with fair carryover. Ambulation Lateral steps: Pt completes ~4 lateral steps EOB requiring min A x1 for weightshifting and FWW management. Cues provided for sequencing with fair carryover. Outcome Measures AM-PAC How much HELP from another person do you currently need Turning from your back to your side while in a flat bed without using bedrails?: A Little Moving from lying on your back to sitting on the side of a flat bed without using bedrails?: A Little Moving to and from a bed to a chair (including a wheelchair)?: A Lot Standing up from a chair using your arms (wheelchair or bedside chair)?: A Lot Walking in a hospital room?: Total Stair climbing assessed?: No AM-PAC Inpatient Mobility Raw Score (No Stairs) : 11 [facility] Score: Static standing (1 or more minutes) Plan Pt would benefit from skilled acute PT services to address Strengthening, Gait Training, Balance Training, Functional Mobility Training, Endurance Training, Safety Education and Training, Pain Management, Equipment Evaluation/Education, Patient/Caregiver Training, and Positioning. Frequency: 5 visitsduring current hospital admission or until additional recommendations are made Barriers: Pain, Impaired balance, Lower extremity weakness, and Decreased endurance Safety/Education Safety Safety Devices in place: All fall risk precautions in place, call light within reach, left in bed, gait belt, patient at risk for falls, nurse notified, and no alarms engaged upon entry Restraints: N/A Education Education Given To: patient Education Provided: PT Role, PT Goals, Plan of Care, Transfer Training, Energy Conservation, Equipment, Discharge Recommendations, and Benefits of Increasing Activity Education Method: Verbal and Demonstration Barriers to Learning: None Education Outcome: Verbalized Understanding, Demonstrated Understanding, and Continued Education Needed Goals Patient Stated Goal: pt did not state Encounter Problems Encounter Problems (Active) Exercise Patient will complete lower extremity exercises for 1-2 sets / 5-10 reps in order to improve strength and activity tolerance for mobility. Start: 11/26/24 Expected End: 12/03/24 Mobility Patient will ambulate 10 feet with mod assist and rolling walker in order to improve safety and independence with mobility. Start: 11/26/24 Expected End: 12/03/24 Transfers Patient will perform bed mobility with SBA in order to improve independence and prepare for out of bed mobility. Start: 11/26/24 Expected End: 12/03/24 Patient will complete functional transfer with rolling walker with CGA in order to prepare for ambulation. Start: 11/26/24 Expected End: 12/03/24 Therapy Time Individual Co-Treatment Co-Evaluation Time In 1518 Time Out 1528 Minutes 10 Leida Morales PT Patient's Physical Therapy Plan of Care supervision is transferred to a [facility] Therapy Services Physical Therapist. Goals and/or treatment plan was established in collaboration with patient/family/other representatives. 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 No pertinent surgical history. Images from the original note were not included. Pharmacy Managed Vancomycin Dosing Service Progress Note Consult Date: 11/26/24 Patient Name: José Manuel Ashton Allergies: Penicillins Age: 63 y.o. Sex: male Ht: Height: 177.8 cm (5' 10") TBW: Weight: 113 kg (250 lb) BMI: Body mass index is 35.87 kg/m . Lab Results Component Value Date CREATININE 5.70 (H) 11/26/2024 CREATININE 5.14 (H) 11/25/2024 BUN 56 (H) 11/26/2024 BUN 49 (H) 11/25/2024 WBC 6.9 11/25/2024 WBC 14.8 (H) 10/01/2023 Renal: [x]HD []CRRT []PD Infectious Diagnosis: Sepsis Antimicrobials: Patient recently received an antibiotic (last 12 hours) None Assessment/Plan: Intermittent vancomycin dosing (Pulse Dosing). No results found for: "VANCORANDOM" Change to Pulse dosing and give Vancomycin 750 mg x1 today based on patient age, weight, renal status and infectious diagnosis. Will adjust dose/frequency if needed according to level. (Will schedule next level once HD schedule known) Follow renal status closely. Orders placed. Thank you for this consult. Please page/call with questions. Date: 11/26/24 Time: 1:20 PM Prasanth Springer RPh (available on [employer]) Images from the original note were not included. OCCUPATIONAL THERAPY [facility] Initial Evaluation Name/MRN: José Manuel Ashton ([id number]) Evaluation Date: 11/26/2024 Date of : 1960 Admission Date: 11/25/2024 12:06 PM Age: 63 y.o. Room/Bed: Discharge Recommendation: Long Term Facility Equipment Needed: No Assessment IMPRESSION: Pt is 63 y.o. male admitted from SNF for rule out infection with chills, weakness, lethargy. Prior to admission, pt required assist for ADLs, transfers, and functional mobility with FWW and w/c. Upon eval, pt requiring Mod-Max A for bed mobility, Min-Mod A for transfers, Mod A for pivot with FWW, Mod A for ADLs. Pt is limited my weakness, pain, endurance, balance, tremor/spasms and will benefit from skilled acute OT services to increase safety and independence during ADLs and functional mobility. Recommend return to SNF at [place] with OT. Admitting Diagnosis: chills Performance Deficits /Impairments: Increased Pain, Decreased Functional Mobility, Decreased ADL status, Decreased Strength, Decreased Endurance, Decreased Balance, Decreased High Level IADLs, Decreased Fine Motor Control, Decreased Coordination, and Decreased Posture Prognosis: Fair Decision Making: Medium Complexity Subjective Pt pleasant and cooperative, agreeable to OT evaluation. Pain: 0-10 pain scale: 8/10 Location: bilateral UE, RUE from hand through shoulder, LUE in hand and wrist Past Medical History: Medical History[1] Past Surgical History: Surgical History[2] Admission Diagnosis: Patient Active Problem List Diagnosis Date Noted Chills 11/25/2024 Medical Precautions: Droplet Plus Proper PPE donned/doffed in accordance with facility standards. Fall Risk: Smith Fall Risk Score: 60 (High Risk) Precautions/Restrictions: skin care precautions Family/Caregiver Present: none Overall Cognitive Status: WFL Overall Orientation Status: Oriented x4 Social/Functional History Patient admitted from SNF. Assistive Equipment: front wheeled walker, cane, and wheelchair - manual Prior Level of Function Prior Level of ADL Function: Required Assist Prior Level of Mobility: Required Assist; Device: Front wheeled walker and Wheelchair - manual Prior Level of Transfers: Required Assist Objective ADLs LE Dressing: Mod Assist Toileting: Mod Assist Pt requiring Mod A for LB dressing for managing clothing over hips in standing, requiring Min A for standing balance at FWW. Pt requiring Mod A for toileting at BSC this date for clothing management, pt able to perform pericare in sitting without physical assist. Pt voided bladder at time of eval. Upper Extremity Assessment AROM: WFL PROM: WFL Strength: Exceptions: generalized BUE weakess No formal assessment complete, however AROM noted to be WFL during functional tasks this date. Generalized weakness noted during functional tasks at this time. Bed Mobility Supine to sit: Mod Assist Sit to supine: Max Assist Pt requiring Mod A for mobility to EOB for achieving upright sitting posture, pt able to manage BLE off bed without physical assist and with increased time and effort. Max A required for mobility to return to supine for BLE management. Transfers/Mobility Sit to stand: Min Assist, Mod Assist Stand to sit: Mod Assist Stand step: Mod Assist Bedside commode: Mod Assist Standing balance: Min Assist, Mod Assist Pt performing STS from EOB<>FWW with Min A this date. With FWW, pt performing stand step transfer from EOB to BSC with Mod A at this time for balance and controlled descent, requiring Mod A to stand from BSC to FWW with cues for hand placement. Device(s) used: Front wheeled walker AM-PAC AM-PAC Inpatient Daily Activity Raw Score: 15 ADL Inpatient CMS G-Code Modifier: CK Plan Pt would benefit from skilled acute OT services to address Strengthening, Balance Training, Self-Care/ADL Training, Functional Mobility Training, Endurance Training, Safety Education and Training, and Pain Management Frequency: 7 visits during current hospital admission or until additional recommendations are made Barriers: Pain, Impaired balance, Lower extremity weakness, Upper extremity weakness, and Decreased endurance Safety/Education Safety Safety Devices in place: All fall risk precautions in place, call light within reach, left in bed, gait belt, patient at risk for falls, nurse notified, and no alarms engaged upon entry Restraints: No Education Education Given To: patient Education Provided: OT Role, Plan of Care, ADL Adaptive Strategies, Transfer Training, Fall Prevention Education, Discharge Recommendations, and Benefits of Increasing Activity Education Method: Verbal, Demonstration, and Teach Back Barriers to Learning: None Education Outcome: Verbalized Understanding, Demonstrated Understanding, and Continued Education Needed Goals Patient Stated Goal: to get my pain under control Encounter Problems Encounter Problems (Active) Balance Patient will maintain static standing balance for 3 minutes with CGA in order to demonstrate decreased risk of falling. (Initiated) Start: 11/26/24 Expected End: 12/04/24 Dressing Upper Extremities Patient will complete upper body dressing Mod I (Not Addressed) Start: 11/26/24 Expected End: 12/04/24 Dressings Lower Extremities Patient will dress lower body Min A (Initiated) Start: 11/26/24 Expected End: 12/04/24 Toileting Patient will complete toileting tasks at standard toilet with modified independence. (Progressing) Start: 11/26/24 Expected End: 12/04/24 Transfers Patient will complete functional transfer with least restrictive device with SBA in order to prepare for functional mobility. (Progressing) Start: 11/26/24 Expected End: 12/04/24 Patient will perform bed mobility with min assist in order to improve independence and prepare for out of bed mobility. (Progressing) Start: 11/26/24 Expected End: 12/04/24 Therapy Time Individual Co-Treatment Co-Evaluation Time In 1310 Time Out 1351 Minutes 41 Timed Code Treatment Minutes: 23 Minutes (2ADL) Judith Salamanca OT Patient's Occupational Therapy Plan of Care supervision is transferred to a [facility] Therapy Services Occupational Therapist. Goals and/or treatment plan was established in collaboration with patient/family/other representatives. 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 No pertinent surgical history. Hospitalist Progress Note 11/26/2024 Subjective: Admit Date: 11/25/2024 PCP: Brittaney Garcia MD Room#: Interval History: Weak. Tolerating diet. No cp, sob, cough, n/v, f/c. Case and plan discussed with patient. All questions answered. Adult diet Regular; 5 carb choices (75 gm/meal) 24HR INTAKE/OUTPUT: Intake/Output Summary (Last 24 hours) at 11/26/2024 1207 Last data filed at 11/25/2024 1753 Gross per 24 hour Intake 500 ml Output -- Net 500 ml Past Medical History: Medical History[1] LABS: CBC: Recent Labs 11/25/24 1252 WBC 6.9 RBC 3.15* HGB 9.2* HCT 28.8* MCV 91.4 RDW 13.0 PLT 220 BMP: Recent Labs 11/25/24 1252 11/26/24 0457 NA 139 140 K 4.4 4.4 CL 99 105 CO2 25 24 BUN 49* 56* CREATININE 5.14* 5.70* GLUCOSE 178* 123* CALCIUM 9.1 9.0 ANIONGAP 15* 11 LIVER PROFILE: Recent Labs 11/25/24 1252 11/26/24 0457 AST 19 21 ALT 17 14 BILITOT 0.5 0.4 ALKPHOS 100 95 PROT 6.9 6.4 PT/INR: No results for input(s): "PROTIME", "INR" in the last 72 hours. CARDIAC ENZYMES: No results for input(s): "TROPONINI" in the last 72 hours. Procalcitonin: Lab Results Component Value Date PROCAL 0.30 (H) 11/26/2024 COVID-19 PCR: No results for input(s): "COVID19" in the last 72 hours. Objective: Vitals: BP 137/56 (BP Location: Right arm) Pulse 82 Temp 36.5 C (97.7 F) (Oral) Resp 18 Ht 5' 10" (1.778 m) Wt 250 lb (113 kg) SpO2 97% BMI 35.87 kg/m Pulse Ox: SpO2 Av % Min: 95 % Max: 100 % Supplemental O2: O2 Flow Rate (L/min): 4 L/min Physical Exam Vitals and nursing note reviewed. Constitutional: General: He is not in acute distress. Appearance: He is obese. He is ill-appearing. HENT: Head: Normocephalic. Eyes: Conjunctiva/sclera: Conjunctivae normal. Pupils: Pupils are equal, round, and reactive to light. Cardiovascular: Rate and Rhythm: Normal rate and regular rhythm. Pulses: Normal pulses. Heart sounds: Murmur heard. Pulmonary: Effort: Pulmonary effort is normal. Breath sounds: Rhonchi and rales present. Abdominal: General: Bowel sounds are normal. There is no distension. Palpations: Abdomen is soft. Tenderness: There is no abdominal tenderness. Musculoskeletal: General: Normal range of motion. Cervical back: Normal range of motion. Skin: General: Skin is dry. Capillary Refill: Capillary refill takes less than 2 seconds. Neurological: General: No focal deficit present. Mental Status: He is alert and oriented to person, place, and time. Mental status is at baseline. Psychiatric: Mood and Affect: Mood normal. Medications: Scheduled PRN Scheduled Meds[2] PRN Meds[3] Continuous Continuous Meds[4] Assessment Lethargy and chills Rule out infection HTN DM2 ESRD Anemia Hyperlipidemia Depression Class 3 obesity Plan Continue to monitor on telemetry, continue IV antibiotics, follow up cultures- get one off TDC line (ordered), check POCT, SS insulin, Endocrinology and Nephrology following, HD tomorrow, PT/OT, follow up labs, discharge planning, see orders. - am labs, replace lytes prn - PT/OT/CM/SW - delirium precautions: increase activity - DVT prophylaxis: heparin and encourage ambulation Advance Directive: Full Code Anticipated Discharge - Date - 11/28-11/30 - Location - Skilled Facility - Pending the following - clinical improvement, antibiotic finalization and when OK with Nephrology Total time spent (which include face to face and non face to face encounters) : 45 minutes Toxic drug monitoring/narrow therapeutic index drug monitoring : # Drug name : vancomycin, SS insulin and heparin # Route administered : IV and subcutaneous and subcutaneous # Method of monitoring : blood levels/daily BMP and ac/hs blood glucose/daily BMP/hypoglycemia protocol and daily CBC Extended Emergency Contact Information Primary Emergency Contact: Janell Waldrop Mobile Relation: Sister Preferred language: Bahraini Fisher Hoop Net needed? 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 Chronic kidney disease (CKD) Cognitive communication deficit Depression Difficulty walking Dizziness Hyperkalemia Hyperlipemia Hyperosmolality and hypernatremia Hypertension Malignant neoplasm of rectum (HCC) Muscle weakness Need for assistance with personal care Other specified polyneuropathies Other symbolic dysfunctions Radiculopathy, lumbar region Spinal stenosis Type 2 diabetes mellitus (HCC) Vitamin D deficiency [2] amLODIPine, 5 mg, Oral, Daily heparin, 5,000 Units, SubCUTAneous, 2 times per day hydrALAZINE, 50 mg, Oral, BID insulin lispro, 0-12 Units, SubCUTAneous, TID WC And insulin lispro, 0-12 Units, SubCUTAneous, Nightly oxyCODONE-acetaminophen, 1 tablet, Oral, Once vancomycin (Vancocin) intermittent dosing (placeholder), , Other, See admin instructions [3] PRN medications: acetaminophen OR acetaminophen, dextrose, dextrose, glucagon (rDNA), glucose, ipratropium-albuterol, naloxone, ondansetron ODT OR ondansetron, oxyCODONE, polyethylene glycol (PEG) 3350 [4] documented in this encounter 11-29-2024 Hospital Discharge instructions Christie Orozco RN - 11/29/2024 1:39 PM EDT Images from the original note were not included. Continuity of Care Form Patient Name: José Manuel Ashton : 1960 Admit date: 11/25/2024 Discharge date: 11/29/24 Code Status Order: Full Code Advance Directives: N Admitting Physician: Flori Hills MD PCP: Brittaney Garcia MD Discharging Nurse: Christie ZHANG Discharging Hospital Unit/Room#: B4466/B4466 A Discharging Unit Emergency Contact: Extended Emergency Contact Information Primary Emergency Contact: Janell Waldrop Mobile Relation: Sister Preferred language: Bahraini Fisher [employer] Net needed? No Past Surgical History: History reviewed. No pertinent surgical history. Immunization History: There is no immunization history on file for this patient. Active Problems: Medical Problems Problem List * (Principal) Chills Isolation/Infection: No active isolations No active infections Nurse Assessment: Last Vital Signs: BP 132/79 Pulse 86 Temp 36.7 C (98 F) Resp 18 Ht 5' 10" (1.778 m) Wt 265 lb (120 kg) SpO2 91% BMI 38.02 kg/m Last documented pain score (0-10 scale): Last Weight: Wt Readings from Last 1 Encounters: 11/29/24 265 lb (120 kg) Mental Status: GREY Patient Mental Status: oriented and alert IV Access: GREY IV Access: Dialysis Catheter - site: subclavian right, condition patent and no redness, insertion date: present on admission Nursing Mobility/ADLs: Walking Minimal assistance Transfer Minimal assistance Bathing Total assistance Dressing Minimal assistance Toileting Minimal assistance Feeding Independent Brass Polisher Total assistance Med Delivery yes Wound Care Documentation and Therapy: Elimination: Continence: Bowel: yes Bladder: yes Urinary Catheter: None Colostomy/Ileostomy/Ileal Conduit: None Date of Last BM: 11/26 No intake or output data in the 24 hours ending 11/29/24 1338 I/O last 3 completed shifts: In: 300 (2.5 mL/kg) [I.V.:300 (2.5 mL/kg)] Out: 2000 (16.6 mL/kg) [Urine:2000 (0.5 mL/kg/hr)] Weight: 120.2 kg Safety Concerns: at risk for falls Impairments/Disabilities: none Nutrition Therapy: Current Nutrition Therapy: Oral diet: carb control 5 carbs/meal (2000kcals/day) Routes of Feeding: oral Liquids: thin liquids Daily Fluid Restriction: no Last Modified Barium Swallow with Video (Video Swallowing Test): not done Treatments at the Time of Hospital Discharge: Respiratory Treatments: none Oxygen Therapy: is not on home oxygen therapy. Ventilator: No ventilator support Rehab Therapies: physical therapy, occupational therapy, nursing, and aide Weight Bearing Status/Restrictions: no restriction Other Medical Equipment (for information only, NOT a DME order): bedside commode and shower chair Other Treatments: Patient's personal belongings (please select all that are sent with patient): none RN SIGNATURE: MANAGEMENT/SOCIAL WORK SECTION Inpatient Status Date: 11/25/24 Discharging to Facility/ Agency [facility] [address] [place] [address] Dialysis Facility (if applicable) Name: Address: Dialysis Schedule: Phone: Fax: Concrete Pointer/Electrical Maintenance Engineer signature: ICIAN SECTION Name: José Manuel Ashton Prognosis: good Condition at Discharge: stable Rehab Potential (if transferring to Rehab): good Recommended Labs or Other Treatments After Discharge: BMP/CBC on 12/04/2024 The individual is being admitted to a nursing facility directly from an [facility] or a unit of a [facility] that is not operated by or licensed by [facility] under section 5119.14 or 5160-3-15.1 5 The individual requires the level of services provided by a nursing facility for the condition for which he or she was treated in the hospital and, Physician Certification: I certify the above information and transfer of José Manuel Ashton is necessary for the continuing treatment of the diagnosis listed and that he requires jail facility for less than 30 days. Update Admission H&P: No change in H&P PHYSICIAN SIGNATURE: documented in this encounter 11-29-2024 Note [facility] Progress Note Subjective/ 63 y.o. year old male who we are seeing in consultation for ESRD. Interval History Admitted for weakness, chills, and lethargy Sleeping during HD, wakes to stimuli Reports generalized pain with tremors/twitching Denies SOB, on RA BP stable Adequate PO intake ROS Otherwise negative No interval changes to [facility]. All interval notes/labs/imaging reviewed. Objective/ Vitals: 11/29/24 1045 11/29/24 1100 11/29/24 1115 11/29/24 1130 BP: 123/72 104/67 (!) 118/47 121/55 BP Location: Patient Position: Pulse: 86 85 84 84 Resp: Temp: TempSrc: SpO2: Weight: Height: 24HR INTAKE/OUTPUT: No intake or output data in the 24 hours ending 11/29/24 1146 Physical Exam Constitutional: Appearance: He is obese. He is ill-appearing. HENT: Head: Normocephalic and atraumatic. Mouth/Throat: Mouth: Mucous membranes are moist. Eyes: Pupils: Pupils are equal, round, and reactive to light. Pulmonary: Effort: Pulmonary effort is normal. Breath sounds: Normal breath sounds. Abdominal: Palpations: Abdomen is soft. Musculoskeletal: General: Normal range of motion. Cervical back: Neck supple. Skin: General: Skin is warm and dry. Neurological: General: No focal deficit present. Mental Status: He is oriented to person, place, and time. Psychiatric: Mood and Affect: Mood normal. Behavior: Behavior normal. Scheduled Meds:Scheduled Meds[1] Continuous Infusions:Continuous Meds[2] PRN Meds:.PRN Meds[3] Data/ Recent Labs 11/27/24 0339 11/28/24 0641 11/29/24 0706 WBC 5.0 5.1 5.2 HGB 8.5* 8.5* 8.2* HCT 26.7* 26.4* 26.1* MCV 91.1 91.7 93.5 PLT 216 227 222 Recent Labs 11/27/24 0339 11/28/24 0641 11/29/24 0706 NA 144 143 144 K 4.8 4.7 5.1 CL 106 106 109* CO2 27 27 26 GLUCOSE 161* 135* 166* BUN 67* 43* 58* CREATININE 6.86* 4.87* 5.79* Assessment/ 63 y.o. male with ESRD N18.6 HTN in CKD I12.9 Anemia in CKD D63.1 T2DM in CKD E11.22 Lethargy R53.83 Dependence on hemodialysis Plan/ - HD schedule is M-F at nursing facility, DW was recently increased from 112.5 kg to 115 kg. Tolerating inpatient HD well, 2.6 L removed 11/27. Repeat session today - Blood cultures drawn 11/25 and 11/27: NGTD - Strict I&Os - Daily weight - Continue with renal diet - ESRD hgb goal > 10 - Okay for prn transfusions for hgb < 7 - Avoid nephrotoxins and IV contrast dye - Dose all meds per GFR < 15 - Neurology consulted, recommendation noted - concern for uremic encephalopathy related to delayed removal of urea from the spinal fluid - Rest of management per primary team We will follow. Please do not hesitate to call with any questions or concerns. [facility] Office This note is not finalized until authorized by Attending physician. [1] amLODIPine, 5 mg, Oral, Daily cyclobenzaprine, 5 mg, Oral, TID heparin, 5,000 Units, SubCUTAneous, 2 times per day hydrALAZINE, 50 mg, Oral, BID insulin glargine, 10 Units, SubCUTAneous, Nightly insulin lispro, 0-6 Units, SubCUTAneous, TID WC insulin lispro, 3 Units, SubCUTAneous, TID WC oxyCODONE-acetaminophen, 1 tablet, Oral, Once vancomycin (Vancocin) intermittent dosing (placeholder), , Other, See admin instructions [2] [3] PRN medications: acetaminophen OR acetaminophen, dextrose, dextrose, diazePAM, glucagon (rDNA), glucose, heparin flush, ipratropium-albuterol, naloxone, ondansetron ODT OR ondansetron, oxyCODONE, polyethylene glycol (PEG) 33[address] [facility] 11-29-2024 Nurse Note 2.4L removed with tx, UF goal adjusted for BP Tolerated well Patient Name: José Manuel Ashton Patient : 1960 Acct: [id number] Date of Admission: 11/25/2024 Room/Bed: F0-[facility]/A1-635 A Code Status: Full Code Allergies: Allergies[1] Diagnosis: Problem List[2] Treatment: Hemodialysis 1:1 Priority: Routine Location: Bedside Diabetic: Yes NPO: No Isolation Precautions: Dialysis Consent for Treatment Verified: Yes Blood Consent Verified: Not Applicable ICEBOAT: Identify, Consent, Equipment, HepB Status, Orders Complete, Access Verified, Timeliness Second Clinician Verifying: Osiel Orozco RN Time out performed prior to access at 0932. Report Received from Primary RN at 0803. Primary RN (First Initial, Last Name, Title): Osiel Orozco RN Incapacitated Nurse Education Completed: Yes HBsAg ONLY: Date Drawn: November 27, 2024 Results: Negative HBsAb: Date Drawn: November 27, 2024 Results: Susceptible <10 Order Dialyzer: Nipro Na+ Modeling: Not Applicable Dialysate Temperature (C): 36 Blood Flow Rate (BFR): 350 Dialysate Flow Rate (DFR): 600 Access to be Utilized Access: Tunneled Catheter Location: Subclavian Side: Right Needle gauge: Not Applicable + Bruit/Thrill: Not Applicable First Use X-ray Verified: Not Applicable OK to use line order: Not Applicable Site Assessment: Signs and Symptoms of Infection/Inflammation: None If yes: Not Applicable Dressing: Dry and Intact Site Prep: Medical Aseptic Technique Dressing Changed this Treatment: No If yes, by whom: NA - not changed today Date of Last Dressing Change: November 27, [address]?: Yes Red Alcohol Caps in place?: Yes Gauze Dressing?: No Non-Dialysis Use?: No Comment: Flows: Lines Reversed If access problem, who was notified: Pre and Post-Assessment Patient Vitals for the past 8 hrs: Level of Consciousness Oriented X Heart Rhythm Respiratory Pattern O2 Device Bilateral Breath Sounds Skin Color Skin Condition/Temp Appetite Abdomen Inspection Bowel Sounds (All Quadrants) Edema Generalized Edema 11/29/24 0841 -- -- -- -- -- Diminished;Expiratory wheezes;Inspiratory wheezes -- -- -- Soft;Rounded Active Generalized Non-pitting 11/29/24 0851 Alert (0) x4 Regular Other (Comment) None (Room air) Diminished [address] Warm;Dry Good Soft;Rounded Active Generalized Non-pitting 11/29/24 1346 Alert (0) x4 Regular Other (Comment) None (Room air) -- [address] Warm;Dry Good Soft;Rounded Active Generalized Non-pitting Labs Lab Results Component Value Date/Time WBC 5.2 11/29/2024 0706 HGB 8.2 (L) 11/29/2024 0706 HCT 26.1 (L) 11/29/2024 0706 PLT 222 11/29/2024 0706 NA 144 11/29/2024 0706 K 5.1 11/29/2024 0706 CL 109 (H) 11/29/2024 0706 CO2 26 11/29/2024 0706 BUN 58 (H) 11/29/2024 0706 CREATININE 5.79 (H) 11/29/2024 0706 CALCIUM 8.9 11/29/2024 0706 PHOS 2.9 10/01/2023 1115 IV Drips and Rate/Dose Continuous Meds[3] Safety - Before each treatment: Dialysis Machine No.: [id number] RO Machine Number: [id number] Dialyzer Lot No.: [id number] Tubing Lot Number: [id number] All Connections Secure: Yes Venous Parameters Set: Yes Arterial Parameters Set: Yes NS Bag: Yes Saline Line Double Clamped: Yes Dialyzer: Nipro Prime Volume (mL): 200 mL RO Machine Number: [id number] RO Machine Log Sheet Completed: Yes Machine Alarm Self Test: Completed, Passed (11/29/24931) Air Foam Detector: Tested, Proper Function, pH Reading Extracorporeal Circuit Tested for Integrity: Yes Machine Conductivity: 13.4 Manual Conductivity: 13.6 Manual Ph: 7.2 Bleach Test (Neg): Yes Bath Temperature: 36 C (96.8 F) Conductivity Meter Serial #: [id number] Machine Functioning Alarm Free? Yes Dialysis Bath: K+ (Potassium): 2 Ca+ (Calcium): 2.5 Na+ (Sodium): 137 HCO3 (Bicarb): 35 Bicarbonate Concentrate Lot No.: [id number] Acid Concentrate Lot No.: [id number] Chlorine Testing - Before each treatment and every 4 hours: Time On: 0932 Time Off: 1332 Treatment Goal: 3 Weight Height: 177.8 cm (5' 10") (11/28/24 1358) Weight: 120 kg (265 lb) (11/29/24 0300) BMI (Calculated): 38.02 (11/29/24 0300) 1st check: less than 0.1 ppm at: 0828 2nd check: less than 0.1 ppm at: 1221 3rd check: Not Applicable (if greater than 0.1 ppm, then check every 30 minutes from secondary) Access Flows and Pressures Patient Vitals for the past 8 hrs: Blood Flow Rate (mL/min) Ultrafiltration Rate (ml/hr) Arterial Pressure (mmHg) Venous Pressure (mmHg) TMP DFR Access Visible Intra-Hemodialysis Comments 11/29/24 0932 350 mL/min 870 ml/hr -120 mmHg 80 mmHg 60 600 Yes tx started per policy with lines reversed due to art pressure alarming with breagthing, denies needs, LVSD 11/29/24 0945 350 mL/min 870 ml/hr -140 mmHg 100 mmHg 70 600 Yes eyes closed with no sign of acute distress, LVSD 11/29/24 1000 350 mL/min 870 ml/hr -130 mmHg 90 mmHg 60 600 Yes eyes closed with no sign of acute distress, LVSD 11/29/24 1015 350 mL/min 870 ml/hr -150 mmHg 100 mmHg 60 600 Yes watching tv, talking with this RN, no sign of acute distress, LVSD 11/29/24 1030 350 mL/min 870 ml/hr -150 mmHg 100 mmHg 60 600 Yes denies needs, decreased UF goal for BP, LVSD 11/29/24 1045 350 mL/min 870 ml/hr -150 mmHg 110 mmHg 60 600 Yes no sign of acute distress, LVSD 11/29/24 1100 350 mL/min 870 ml/hr -150 mmHg 130 mmHg 60 600 Yes eyes closed, LVSD 11/29/24 1115 350 mL/min 730 ml/hr -150 mmHg 140 mmHg 50 600 Yes decreased UF goal for BP, denies needs, LVSD 11/29/24 1130 350 mL/min 600 ml/hr -140 mmHg 160 mmHg 60 600 Yes eyes closed, no sign of acute distress, LVSD 11/29/24 1145 350 mL/min 600 ml/hr -140 mmHg 170 mmHg 60 600 Yes watching tv, denies needs, no sign of acute distress 11/29/24 1200 350 mL/min 600 ml/hr -150 mmHg 170 mmHg 60 600 Yes eyes closed, no sign of acute distress, LVSD, increased UF goal 11/29/24 1215 350 mL/min 660 ml/hr -150 mmHg 160 mmHg 60 600 Yes no sign of acute distress, LVSD 11/29/24 1230 350 mL/min 660 ml/hr -150 mmHg 210 mmHg 60 600 Yes talking with this RN, no sign of acute distress, LVSD 11/29/24 1245 350 mL/min 660 ml/hr -150 mmHg 210 mmHg 60 600 Yes watching tv and talking with this RN, LVSD 11/29/24 1300 350 mL/min 660 ml/hr -150 mmHg 230 mmHg 60 600 Yes no sign of acute distress, LVSD, talking with this RN 11/29/24 1315 350 mL/min 660 ml/hr -150 mmHg 240 mmHg 60 600 Yes no sign of acute distress, LVSD 11/29/24 1332 3501 mL/min -- -150 mmHg 260 mmHg 60 600 Yes tx completed, blood rinsed back per policy without difficulty, denies needs Vital Signs Patient Vitals for the past 24 hrs: BP Temp Temp src Pulse Resp SpO2 Height Weight 11/29/24 1346 153/83 36.6 C (97.8 F) -- 85 17 -- -- -- 11/29/24 1332 136/77 -- -- 87 -- -- -- -- 11/29/24 1315 132/79 -- -- 86 -- -- -- -- 11/29/24 1300 140/79 -- -- 86 -- -- -- -- 11/29/24 1245 142/77 -- -- 85 -- -- -- -- 11/29/24 1230 121/84 -- -- 90 -- -- -- -- 11/29/24 1215 129/68 -- -- 84 -- -- -- -- 11/29/24 1200 130/77 -- -- 84 -- -- -- -- 11/29/24 1145 130/73 -- -- 84 -- -- -- -- 11/29/24 1130 121/55 -- -- 84 -- -- -- -- 11/29/24 1115 (!) 118/47 -- -- 84 -- -- -- -- 11/29/24 1100 104/67 -- -- 85 -- -- -- -- 11/29/24 1045 123/72 -- -- 86 -- -- -- -- 11/29/24 1030 102/59 -- -- 87 -- -- -- -- 11/29/24 1015 123/67 -- -- 85 -- -- -- -- 11/29/24 1000 138/72 -- -- 85 -- -- -- -- 11/29/24 0945 147/67 -- -- 83 -- -- -- -- 11/29/24 0932 137/70 -- -- 82 -- -- -- -- 11/29/24 0851 137/73 36.7 C (98 F) -- 83 18 -- -- -- 11/29/24 0841 117/69 36.6 C (97.9 F) Temporal 87 17 -- -- -- 11/29/24 0300 -- -- -- -- -- -- -- 120 kg (265 lb) 11/28/242021 119/78 36.4 C (97.5 F) Temporal 85 16 91 % -- -- 11/28/24 1541 136/73 36.3 C (97.3 F) Temporal 86 16 96 % -- -- 11/28/24 1358 -- -- -- -- -- -- 1.778 m (5' 10") -- Post-Dialysis Arterial Catheter Locking Solution: Heparin (1000units:1ml) Volume (ml): 1.8 Venous Catheter Locking Solution: Heparin (1000units:1ml) Volume (ml): 1.9 Post-Treatment Procedures: Blood returned, Catheter capped, clamped and heparinized x 2 ports Machine Disinfection Process: Exterior Machine Disinfection Rinseback Volume (mL): 200 mL Total Liters Processed (L/min): 77.1 L/min Dialyzer Clearance: Lightly streaked Heparin Amount Administered During Treatment (mL): 0 units Hemodialysis Intake (ml): 400 ml Hemodialysis Output (ml): 2800 ml NET Removed (ml): 2400 ml Tolerated Treatment: Good Interventions Taken: Ultrafiltration goal decreased Patient Response to Treatment: tolerated well Physician Notified: No Patient Disposition: (bedside tx) Charge: $ IP Hemodialysis Charge: Hemodialysis Provider Notification Provider Notification Reason for Communication: Evaluate Provider Name: Yimi Provider Role: Hospitalist Method of Communication: Secure chat Response: Waiting for response Notification Date: 11/29/24 Notification Time: 1341 Shift Event: (orders placed for BGT Q 2, multiple labs Q 4. patient may need moved to higher LOC) Provider Role: Hospitalist Method of Communication: Secure chat Response: Waiting for response Notification Time: 1341 Handoff complete and report given to Primary RN at 1351. Primary RN (First Initial, Last Name, Title): Osiel Orozco RN Education Person Educated: Patient Knowledge Base: Minimal Barriers to Learning?: None Preferred method of Learning: Hands-on Topic(s): Procedural, Potassium, and Diet Teaching Tools: Explanation Response to Education: Verbalized Understanding and Requires Follow-up [1] Allergies Allergen Reactions Penicillins Unknown Pt states he thinks he had a reaction as a child [2] Patient Active Problem List Diagnosis Chills [3] 11-29-2024 Nurse Note 2.4L removed with tx, UF goal adjusted for BP Tolerated well Patient Name: José Manuel Ashton Patient : 1960 Acct: [id number] Date of Admission: 11/25/2024 Room[facility]: [facility] A Code Status: Full Code Allergies: Allergies[1] Diagnosis: Problem List[2] Treatment: Hemodialysis 1:1 Priority: Routine Location: Bedside Diabetic: Yes NPO: No Isolation Precautions: Dialysis Consent for Treatment Verified: Yes Blood Consent Verified: Not Applicable ICEBOAT: Identify, Consent, Equipment, HepB Status, Orders Complete, Access Verified, Timeliness Second Clinician Verifying: Osiel Orozco RN Time out performed prior to access at 0932. Report Received from Primary RN at 0803. Primary RN (First Initial, Last Name, Title): Osiel Orozco RN Incapacitated Nurse Education Completed: Yes HBsAg ONLY: Date Drawn: November 27, 2024 Results: Negative HBsAb: Date Drawn: November 27, 2024 Results: Susceptible <10 Order Dialyzer: Nipro Na+ Modeling: Not Applicable Dialysate Temperature (C): 36 Blood Flow Rate (BFR): 350 Dialysate Flow Rate (DFR): 600 Access to be Utilized Access: Tunneled Catheter Location: Subclavian Side: Right Needle gauge: Not Applicable + Bruit/Thrill: Not Applicable First Use X-ray Verified: Not Applicable OK to use line order: Not Applicable Site Assessment: Signs and Symptoms of Infection/Inflammation: None If yes: Not Applicable Dressing: Dry and Intact Site Prep: Medical Aseptic Technique Dressing Changed this Treatment: No If yes, by whom: NA - not changed today Date of Last Dressing Change: November 27, [address]?: Yes Red Alcohol Caps in place?: Yes Gauze Dressing?: No Non-Dialysis Use?: No Comment: Flows: Lines Reversed If access problem, who was notified: Pre and Post-Assessment Patient Vitals for the past 8 hrs: Level of Consciousness Oriented X Heart Rhythm Respiratory Pattern O2 Device Bilateral Breath Sounds Skin Color Skin Condition/Temp Appetite Abdomen Inspection Bowel Sounds (All Quadrants) Edema Generalized Edema 11/29/24 0841 -- -- -- -- -- Diminished;Expiratory wheezes;Inspiratory wheezes -- -- -- Soft;Rounded Active Generalized Non-pitting 11/29/24 0851 Alert (0) x4 Regular Other (Comment) None (Room air) Diminished [address] Warm;Dry Good Soft;Rounded Active Generalized Non-pitting 11/29/24 1346 Alert (0) x4 Regular Other (Comment) None (Room air) -- [address] Warm;Dry Good Soft;Rounded Active Generalized Non-pitting Labs Lab Results Component Value Date/Time WBC 5.2 11/29/2024 0706 HGB 8.2 (L) 11/29/2024 0706 HCT 26.1 (L) 11/29/2024 0706 PLT 222 11/29/2024 0706 NA 144 11/29/2024 0706 K 5.1 11/29/2024 0706 CL 109 (H) 11/29/2024 0706 CO2 26 11/29/2024 0706 BUN 58 (H) 11/29/2024 0706 CREATININE 5.79 (H) 11/29/2024 0706 CALCIUM 8.9 11/29/2024 0706 PHOS 2.9 10/01/2023 1115 IV Drips and Rate/Dose Continuous Meds[3] Safety - Before each treatment: Dialysis Machine No.: [id number] RO Machine Number: [id number] Dialyzer Lot No.: [id number] Tubing Lot Number: [id number] All Connections Secure: Yes Venous Parameters Set: Yes Arterial Parameters Set: Yes NS Bag: Yes Saline Line Double Clamped: Yes Dialyzer: Nipro Prime Volume (mL): 200 mL RO Machine Number: [id number] RO Machine Log Sheet Completed: Yes Machine Alarm Self Test: Completed, Passed (11/29/24 09) Air Foam Detector: Tested, Proper Function, pH Reading Extracorporeal Circuit Tested for Integrity: Yes Machine Conductivity: 13.4 Manual Conductivity: 13.6 Manual Ph: 7.2 Bleach Test (Neg): Yes Bath Temperature: 36 C (96.8 F) Conductivity Meter Serial #: [id number] Machine Functioning Alarm Free? Yes Dialysis Bath: K+ (Potassium): 2 Ca+ (Calcium): 2.5 Na+ (Sodium): 137 HCO3 (Bicarb): 35 Bicarbonate Concentrate Lot No.: [id number] Acid Concentrate Lot No.: [id number] Chlorine Testing - Before each treatment and every 4 hours: Time On: 0932 Time Off: 1332 Treatment Goal: 3 Weight Height: 177.8 cm (5' 10") (11/28/24 1358) Weight: 120 kg (265 lb) (11/29/24 0300) BMI (Calculated): 38.02 (11/29/24 0300) 1st check: less than 0.1 ppm at: 0828 2nd check: less than 0.1 ppm at: 1221 3rd check: Not Applicable (if greater than 0.1 ppm, then check every 30 minutes from secondary) Access Flows and Pressures Patient Vitals for the past 8 hrs: Blood Flow Rate (mL/min) Ultrafiltration Rate (ml/hr) Arterial Pressure (mmHg) Venous Pressure (mmHg) TMP DFR Access Visible Intra-Hemodialysis Comments 11/29/24 0932 350 mL/min 870 ml/hr -120 mmHg 80 mmHg 60 600 Yes tx started per policy with lines reversed due to art pressure alarming with breagthing, denies needs, LVSD 11/29/24 0945 350 mL/min 870 ml/hr -140 mmHg 100 mmHg 70 600 Yes eyes closed with no sign of acute distress, LVSD 11/29/24 1000 350 mL/min 870 ml/hr -130 mmHg 90 mmHg 60 600 Yes eyes closed with no sign of acute distress, LVSD 11/29/24 1015 350 mL/min 870 ml/hr -150 mmHg 100 mmHg 60 600 Yes watching tv, talking with this RN, no sign of acute distress, LVSD 11/29/24 1030 350 mL/min 870 ml/hr -150 mmHg 100 mmHg 60 600 Yes denies needs, decreased UF goal for BP, LVSD 11/29/24 1045 350 mL/min 870 ml/hr -150 mmHg 110 mmHg 60 600 Yes no sign of acute distress, LVSD 11/29/24 1100 350 mL/min 870 ml/hr -150 mmHg 130 mmHg 60 600 Yes eyes closed, LVSD 11/29/24 1115 350 mL/min 730 ml/hr -150 mmHg 140 mmHg 50 600 Yes decreased UF goal for BP, denies needs, LVSD 11/29/24 1130 350 mL/min 600 ml/hr -140 mmHg 160 mmHg 60 600 Yes eyes closed, no sign of acute distress, LVSD 11/29/24 1145 350 mL/min 600 ml/hr -140 mmHg 170 mmHg 60 600 Yes watching tv, denies needs, no sign of acute distress 11/29/24 1200 350 mL/min 600 ml/hr -150 mmHg 170 mmHg 60 600 Yes eyes closed, no sign of acute distress, LVSD, increased UF goal 11/29/24 1215 350 mL/min 660 ml/hr -150 mmHg 160 mmHg 60 600 Yes no sign of acute distress, LVSD 11/29/24 1230 350 mL/min 660 ml/hr -150 mmHg 210 mmHg 60 600 Yes talking with this RN, no sign of acute distress, LVSD 11/29/24 1245 350 mL/min 660 ml/hr -150 mmHg 210 mmHg 60 600 Yes watching tv and talking with this RN, LVSD 11/29/24 1300 350 mL/min 660 ml/hr -150 mmHg 230 mmHg 60 600 Yes no sign of acute distress, LVSD, talking with this RN 11/29/24 1315 350 mL/min 660 ml/hr -150 mmHg 240 mmHg 60 600 Yes no sign of acute distress, LVSD 11/29/24 1332 3501 mL/min -- -150 mmHg 260 mmHg 60 600 Yes tx completed, blood rinsed back per policy without difficulty, denies needs Vital Signs Patient Vitals for the past 24 hrs: BP Temp Temp src Pulse Resp SpO2 Height Weight 11/29/24 1346 153/83 36.6 C (97.8 F) -- 17 -- -- -- 11/29/24 1332 136/77 -- -- 87 -- -- -- -- 11/29/24 1315 132/79 -- -- 86 -- -- -- -- 11/29/24 1300 140/79 -- -- 86 -- -- -- -- 11/29/24 1245 142/77 -- -- 85 -- -- -- -- 11/29/24 1230 121/84 -- -- 90 -- -- -- -- 11/29/24 1215 129/68 -- -- 84 -- -- -- -- 11/29/24 1200 130/77 -- -- 84 -- -- -- -- 11/29/24 1145 130/73 -- -- 84 -- -- -- -- 11/29/24 1130 121/55 -- -- 84 -- -- -- -- 11/29/24 1115 (!) 118/47 -- -- 84 -- -- -- -- 11/29/24 1100 104/67 -- -- 85 -- -- -- -- 11/29/24 1045 123/72 -- -- 86 -- -- -- -- 11/29/24 1030 102/59 -- -- 87 -- -- -- -- 11/29/24 1015 123/67 -- -- 85 -- -- -- -- 11/29/24 1000 138/72 -- -- 85 -- -- -- -- 11/29/24 0945 147/67 -- -- 83 -- -- -- -- 11/29/24 0932 137/70 -- -- 82 -- -- -- -- 11/29/24 0851 137/73 36.7 C (98 F) -- 83 18 -- -- -- 11/29/24 0841 117/69 36.6 C (97.9 F) Temporal 87 17 -- -- -- 11/29/24 0300 -- -- -- -- -- -- -- 120 kg (265 lb) 11/28/242021 119/78 36.4 C (97.5 F) Temporal 85 16 91 % -- -- 11/28/24 1541 136/73 36.3 C (97.3 F) Temporal 86 16 96 % -- -- 11/28/24 1358 -- -- -- -- -- -- 1.778 m (5' 10") -- Post-Dialysis Arterial Catheter Locking Solution: Heparin (1000units:1ml) Volume (ml): 1.8 Venous Catheter Locking Solution: Heparin (1000units:1ml) Volume (ml): 1.9 Post-Treatment Procedures: Blood returned, Catheter capped, clamped and heparinized x 2 ports Machine Disinfection Process: Exterior Machine Disinfection Rinseback Volume (mL): 200 mL Total Liters Processed (L/min): 77.1 L/min Dialyzer Clearance: Lightly streaked Heparin Amount Administered During Treatment (mL): 0 units Hemodialysis Intake (ml): 400 ml Hemodialysis Output (ml): 2800 ml NET Removed (ml): 2400 ml Tolerated Treatment: Good Interventions Taken: Ultrafiltration goal decreased Patient Response to Treatment: tolerated well Physician Notified: No Patient Disposition: (bedside tx) Charge: $ IP Hemodialysis Charge: Hemodialysis Provider Notification Provider Notification Reason for Communication: Evaluate Provider Name: Yimi Provider Role: Hospitalist Method of Communication: Secure chat Response: Waiting for response Notification Date: 11/29/24 Notification Time: 1341 Shift Event: (orders placed for BGT Q 2, multiple labs Q 4. patient may need moved to higher LOC) Provider Role: Hospitalist Method of Communication: Secure chat Response: Waiting for response Notification Time: 1341 Handoff complete and report given to Primary RN at 1351. Primary RN (First Initial, Last Name, Title): Osiel Orozco RN Education Person Educated: Patient Knowledge Base: Minimal Barriers to Learning?: None Preferred method of Learning: Hands-on Topic(s): Procedural, Potassium, and Diet Teaching Tools: Explanation Response to Education: Verbalized Understanding and Requires Follow-up [1] Allergies Allergen Reactions Penicillins Unknown Pt states he thinks he had a reaction as a child [2] Patient Active Problem List Diagnosis Chills [3] Patient Name: José Manuel Ashton Patient : 1960 Acct: [id number] Date of Admission: 11/25/2024 Room[facility]Bed: [facility] A Code Status: Full Code Allergies: Allergies[1] Diagnosis: Problem List[2] Treatment: Hemodialysis 1:1 Priority: Routine Location: Bedside Diabetic: Yes NPO: No Isolation Precautions: Dialysis Consent for Treatment Verified: Yes Blood Consent Verified: Not Applicable Time out performed prior to access at 1635. Report Received from Primary RN at 1545. Primary RN (First Initial, Last Name, Title): Sena Oreilly RN Incapacitated Nurse Education Completed: Yes HBsAg ONLY: Date Drawn: November 27, 2024 Results: Negative HBsAb: Date Drawn: November 28, 2024 Results: Susceptible <10 Order Dialyzer: Nipro Na+ Modeling: Not Applicable Dialysate Temperature (C): 36 Blood Flow Rate (BFR): 350 Dialysate Flow Rate (DFR): 600 Access to be Utilized Access: Tunneled Catheter Location: Subclavian Side: Right Needle gauge: Not Applicable + Bruit/Thrill: Not Applicable First Use X-ray Verified: Yes OK to use line order: Yes Site Assessment: Signs and Symptoms of Infection/Inflammation: Yes, see line below If yes: Redness Dressing: facility dressing Site Prep: Medical Aseptic Technique Dressing Changed this Treatment: Yes If yes, by whom: Katherin ZHANG Date of Last Dressing Change: November 27, [address]?: Yes Red Alcohol Caps in place?: Yes Gauze Dressing?: NA Non-Dialysis Use?: No Comment: Flows: Good If access problem, who was notified: Pre and Post-Assessment Patient Vitals for the past 8 hrs: Level of Consciousness Oriented X Heart Rhythm O2 Device Bilateral Breath Sounds Skin Color Skin Condition/Temp Edema Generalized Edema Pain Interventions 11/27/24 0900 -- -- -- -- Diminished -- -- Generalized Non-pitting -- 11/27/24 1212 -- -- -- -- -- -- -- -- -- Medication (See MAR) 11/27/24 1630 Alert (0) 4 Regular None (Room air) Diminished [address] Warm;Dry -- -- -- Labs Lab Results Component Value Date/Time WBC 5.0 11/27/2024338 HGB 8.5 (L) 11/27/2024338 HCT 26.7 (L) 11/27/2024338 PLT 216 11/27/2024338 NA 144 11/27/2024338 K 4.8 11/27/2024338 CL 106 11/27/2024338 CO2 27 11/27/2024338 BUN 67 (H) 11/27/2024338 CREATININE 6.86 (H) 11/27/2024338 CALCIUM 9.0 11/27/2024338 PHOS 2.9 10/01/2023 1115 IV Drips and Rate/Dose Continuous Meds[3] Safety - Before each treatment: Dialysis Machine No.: [id number] RO Machine Number: [id number] Dialyzer Lot No.: [id number] Tubing Lot Number: [id number] All Connections Secure: Yes Venous Parameters Set: Yes Arterial Parameters Set: Yes NS Bag: Yes Saline Line Double Clamped: Yes Dialyzer: Nipro Prime Volume (mL): 200 mL RO Machine Number: [id number] RO Machine Log Sheet Completed: Yes Conductivity Meter Serial #: [id number] Machine Functioning Alarm Free? Yes Dialysis Bath: Chlorine Testing - Before each treatment and every 4 hours: Weight Height: 177.8 cm (5' 10") (11/26/24 1501) Weight: 113 kg (250 lb) (11/26/24 1501) BMI (Calculated): 35.87 (11/26/24 1501) 1st check: less than 0.1 ppm at: 1625 2nd check: less than 0.1 ppm at: 1835 3rd check: Not Applicable (if greater than 0.1 ppm, then check every 30 minutes from secondary) Access Flows and Pressures Patient Vitals for the past 8 hrs: Blood Flow Rate (mL/min) Ultrafiltration Rate (ml/hr) Arterial Pressure (mmHg) Venous Pressure (mmHg) TMP DFR Access Visible Intra-Hemodialysis Comments 11/27/24 1640 200 mL/min 830 ml/hr -40 mmHg 40 mmHg 110 600 Yes tx started, lines secured, Primary RN at door. 11/27/24 1645 350 mL/min 830 ml/hr -110 mmHg 110 mmHg 120 600 Yes BFR increased, Uf removed 113 Vital Signs Patient Vitals for the past 24 hrs: BP Temp Temp src Pulse Resp SpO2 11/27/24 1645 136/65 -- -- 80 -- -- 11/27/24 1640 145/74 -- -- 82 -- -- 11/27/24 1630 129/63 36 C (96.8 F) -- 81 16 96 % 11/27/24 0809 150/88 (!) 35.9 C (96.7 F) Temporal 90 18 96 % 11/27/24 0728 -- -- -- 90 -- -- 11/26/242007 147/67 37.1 C (98.7 F) Temporal 95 20 93 % 11/26/24 1700 -- -- -- -- -- 92 % Post-Dialysis Arterial Catheter Locking Solution: Heparin (1000units:1ml) Volume (ml): 1.8 Venous Catheter Locking Solution: Heparin (1000units:1ml) Volume (ml): 1.9 Charge: Provider Notification Handoff complete and report given to Primary RN at 1955. Primary RN (First Initial, Last Name, Title): Sena Hammonds Person Educated: Patient Knowledge Base: Minimal Barriers to Learning?: None Preferred method of Learning: Oral Topic(s): Access Care, Signs and Symptoms of Infection, Procedural, Potassium, and Diet Teaching Tools: Explanation Response to Education: Requires Follow-up [1] Allergies Allergen Reactions Penicillins Unknown Pt states he thinks he had a reaction as a child [2] Patient Active Problem List Diagnosis Chills [3] documented in this encounter 11-29-2024 Progress note Formatting of t his note might be different from the original. [facility] request. Await review and response regarding ability to accept. [facility] notified. 11-29-2024 Note Care Management Prog ress Note Short Medical why still here: shaking/ tremors. 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 Nephrology and endocrinology following. Plan for hemodialysis today. Planned Discharge Disposition: Long Term Facility ([facility]) insurance auth approved for his return (he is also a bedhold). Barriers/Today we still Wait: Administering IV medications, Clinical stability, Symptomatic control Length of Stay (Days): 4 GMLOS: 4.6 welfare manager to follow for discharge planning. 2:07 PM UPDATE: DC order noted Tasked [employer] to send discharge paperwork and MAR to [facility]. Tasked her to arrange transportation via cot. Spoke with patient regarding transportation plan. Confirmed pickup time is 330. Discussed patient may have a co-pay for ambulance depending on their individual insurance coverage. Advised patient to call number on back of insurance card with questions or concerns. Updated bedside RN and manager community relations. Updated patient's sister per his request. [facility] 11-29-2024 Progress note Formatting of t his note might be different from the original. Care Management Progress Note Short Medical why still here: shaking/ tremors. 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 Nephrology and endocrinology following. Plan for hemodialysis today. Planned Discharge Disposition: Long Term Facility ([facility]) insurance auth approved for his return (he is also a bedhold). Barriers/Today we still Wait: Administering IV medications, Clinical stability, Symptomatic control Length of Stay (Days): 4 GMLOS: 4.6 welfare manager to follow for discharge planning. 2:07 PM UPDATE: DC order noted Tasked [employer] to send discharge paperwork and MAR to [facility]. Tasked her to arrange transportation via cot. Spoke with patient regarding transportation plan. Confirmed pickup time is 330. Discussed patient may have a co-pay for ambulance depending on their individual insurance coverage. Advised patient to call number on back of insurance card with questions or concerns. Updated bedside RN and manager community relations. Updated patient's sister per his request. 11-28-2024 Consult note Associated Order (s): IP CONSULT TO NEUROLOGY NEUROLOGY INITIAL CONSULTATION DATE/TIME: NOVEMBER [id number] [] PATIENT's NAME: POLI Cartagena DATE OF : [birth year] AGE: 63 GENDER: Male ROOM: [facility]/A PHYSICIAN REQUESTING CONSULT: Dr. Hills NEUROLOGIST: Lauri Kilgore MD DATE OF ADMISSION: 11-25-24 REASON FOR NEUROLOGY CONSULTATION: Persistent tremors/twitching HISTORY OF PRESENT ILLNESS ED HISTORY OF PRESENT ILLINESS José Manuel Ashton is a 63-year-old man who was admitted to the Emergency Department at [facility] on 11-25-24 . He presented with body chills and shaking. ED vitals: BP: 131/54 HR: 80 RR: 18 O2 sat: 96 % HT: 70 ins Wt.: 265 Lbs. BMI: 38 (Obese Class: III) Mr. Ashton can give me a limited neurological history. NEURO-RELEVANT SYMPTOM PROFILE Onset of symptoms: 2 weeks Description of symptoms: Persistent tremors/twitching Subjective Mr. Ashton is a 63-year-old man. Pain and musculoskeletal symptoms: Neurological symptoms: Within the last couple of weeks, Mr. Ashton has noticed the onset of jerks, which he describes as involuntary movements that cause his to spill drinks and food, such as coffee and cereal. These jerks occur intermittently and are not present all the time but come and go. He also reports shaking of his hands, which he has noticed over the same time period. After his last dialysis session on Monday, others reported that he was confused and didn't make a lick of sense, which led to his current evaluation. He does not report improvement in these symptoms after dialysis; instead, he notes that his symptoms have progressively worsened over time. The jerks and confusion are distressing to him and have impacted his ability to function normally. Over the past two weeks, Mr. Ashton has experienced significant pain described as "a lot of pain" that is generalized and affects multiple areas of the body. He specifically reports back pain and pain in his right arm that radiates up to his right shoulder and into his right hand. He notes difficulty making a fist due to pain and discomfort in his hand. The pain in his arm and hand has persistent and has recently started affecting his right hand in addition to his arm and shoulder. These symptoms are concerning to him as they interfere with his ability to perform daily activities and cause significant discomfort. Cold intolerance and chills: Mr. Ashton reports experiencing chills that began approximately one to two weeks ago. He feels cold most of the time and describes himself as "always cold." The sensation of coldness is persistent and has been present throughout the recent onset of his symptoms. This ongoing cold intolerance is a source of discomfort and concern for his. Dialysis-related symptoms: Mr. Ashton is undergoing hemodialysis and notes that his symptoms, including pain, jerks, and confusion, do not improve after dialysis. He reports that his symptoms have been worsening, rather than get better immediately after dialysis. He specifically mentions that his confusion after dialysis was observed by others, who found his speech and behavior to be nonsensical. He is concerned about the relationship between his dialysis treatments and his worsening symptoms. Negative acute neurologic symptoms: No loss of consciousness, no cognitive impairment, no memory impairment, no headaches, no dizziness/vertigo, no syncopal episodes, no diplopia, no visual impairment, no auditory impairment, no facial paresis, no aphasia, no dysphagia, no extremity paresis, no extremity sensory deficit. NEURO-RELEVANT REVIEW OF SYSTEMS NEUROLOGY Aphasia Ataxia Balance impairment Cognitive/Memory impairment CVA/TIA Diplopia Dizziness Dysesthesia Dystonia Facial asymmetry Falls, unintended Fasciculation Gait disorder Headache/migraine Hearing impairment Hyperesthesia Hypoesthesia Inattentiveness Insomnia Involuntary movement/Tremor Major neurocognitive disorder (dementia) Memory impairment Multiple sclerosis Myasthenia Myopathy Narcolepsy Near-syncope Neuropathy Numbness Paresthesia Parkinsonism/Parkinson's disease Restless leg syndrome Seizures/epilepsy Speech Difficulty Syncope Tremor (Essential) Vestibular balance dysfunction Weaknesses ABNORMAL NEGATIVE CARDIOVASCULAR Angina Bradycardia Cardiac pacemaker Cardiac stent Cardiomegaly Claudication Coronary artery disease ECG, abnormal Heart attack Heart murmur Hypertension Irregular heart rhythm/fibrillation Palpitation Peripheral edema, pitting Peripheral vascular disease Tachycardia ABNORMAL NEGATIVE DERMATOLOGY NEGATIVE EAR, NOSE, & THROAT Dental caries NEGATIVE ENDOCRINOLOGY Cold allodynia Diabetes mellitus Hypercalcemia Hyperglycemia Obesity Parathyroid disease Pituitary dysfunction Polydipsia Polyuria Proptosis Thyroid disease Uhthoff's phenomenon ABNORMAL NEGATIVE GASTROINTESTINAL NEGATIVE GENERAL NEGATIVE GENITOURINARY Acute/subacute/chronic kidney injury Benign prostatic hyperplasia Cystitis Dysuria Hematuria Nephrolithiasis/urolithiasis Nocturia Overactive bladder Pollakiuria Prostate cancer Pyelonephritis Urethritis Urinary incontinence/OAB Urinary retention acute/chronic Urinary tract infection ABNORMAL NEGATIVE HEMATOLOGY Anemia Bleeding disorder Blood clots Hemophilia Hodgkin's lymphoma Leukemia Lymphoma Multiple myeloma Myelodysplastic disease Pancytopenia Thrombocytopenia/thrombocytosis ABNORMAL NEGATIVE MUSCULOSKELETAL Arthralgia Arthritis Back pain Back stiffness Cervicalgia Fibromyalgia Muscle cramps/spasm Myalgia Myopathy Nuchal rigidity Osteoarthritis ABNORMAL NEGATIVE NECK NEGATIVE OPHTHALMOLOGY NEGATIVE ORTHOPEDIC Deformities Fracture Hip & knee & ankle injury Lumbar radiculopathy Tendon injury Tumors Shoulder & Elbow & hand injury Spinal stenosis ABNORMAL NEGATIVE PSYCHIATRY/PSYCHOLOGY Alcohol use disorder Anxiety Behavioral disorder Bipolar disorder Depression Hallucination Hypersomnia Insomnia Irritability/agitation Mood disorder Nicotine dependence PTSD Sleep disturbance Suicidal Ideation ABNORMAL NEGATIVE PULMONARY NEGATIVE RHEUMATOLOGY Gout Lupus Osteoarthritis Osteoporosis Polymyalgia rheumatica Polymyositis Psoriasis arthritis Rheumatoid arthritis Scleroderma Sj gren's Syndrome Tendinitis Vasculitis ABNORMAL NEGATIVE SLEEP NEGATIVE NEURO-RELEVANT PAST MEDICAL/SURGERY HISTORY NEURO-RELEVANT MEDICAL HISTORY NEUROLOGY Cognitive impairment Ataxia Neuropathy CARDIOLOGY Hypertension ENT Dizziness ENDOCRINOLOGY Type II diabetes GASTROENTEROLOGY Will's esophagitis Rectal cancer GENITOURINARY Chronic kidney disease HEMATOLOGY Anemia NEUROMUSCULAR Muscle weakness ORTHOPEDIC Lumbar radiculopathy Spinal stenosis PSYCHIATRY/PSYCHOLOGY Depression SUPPLEMENTAL Hyperkalemia Hyperlipidemia Hypernatremia Vitamin D deficiency NEURO-RELEVANT PAST SURGERY HISTORY NEUROLOGY None NEURO-RELEVANT MEDICATION/DRUG/OTC REVIEW NEURO-RELEVANT OUTPATIENT TREATMENT NEUROLOGY None CARDIOLOGY Hydralazine 50 mg GASTROENTEROLOGY Dulcolax 10 mg NEUROMUSCULAR Flexeril 10 mg Oxycodone 5 mg PSYCHIATRY Valium 10 mg DRUG ALLERGIES None known NEURO-RELEVANT SOCIAL HISTORY Currently smoking: No Currently vaping: No Current alcohol use: No Current caffeine use: Not known. Current drug use non-medication: No ADDITIONAL: NEURO-RELEVANT RELEVANT FAMILY HISTORY Family history is significant: NEURO-RELEVANT NEURODIAGNOSTIC LAB RESULTS ELECTROLYTES PANEL Sodium: (N: 136-145) 143 Potassium: (N: 3.5-5.1) 4.7 RENAL PANEL BUN: (N: 9-23) 43 Creatinine: (N: 0.57-1.11) 4.87 GFR: (N: >60) 12.6 Phosphorus: (N: 2.3-4.7) not available Total protein: (N: 6.4-8.3) 6.1 Albumin: (N: 3.5-5.0) 2.8 Calcium: (N: 8.8-10) 8.8 Magnesium: (N: 1.6-2.6) 2.0 DIABETES PANEL Glucose: (N: 82-115) 135 HbA1c: (N: <5.7- <6.5) 5.5 Beta hydroxybutyrate: (N: <2.8) Not available HEPATIC PANEL Alkaline phosphatase: (N: 40-140) 111 AST: (N: <34) 28 ALT: (N: <30) 34 Total Bilirubin: (N: <1.2) 0.4 Direct Bilirubin: (N: 3.4-4.8) Not available Ammonia: (N: 18-72) Lipase: (N: ) Not available Lactic acid: (N: 0.5-2.2) 0.7 CARDIAC PANEL CK: (N: 30-185) Troponin HS serial baseline: (N: <14) Troponin HS serial second: (N: <14) NT PRO BNP: (N: <450) Protime: (N: 0.9-12) INR: (N: 0.9-1.1) APTT: (N: 20-30.5) LIPID PANEL Triglyceride: (N: <150) HDL: (N: >60) LDL: (N: <100) Cholesterol: (N: <200) CBC WBC: (N: 3.6-10.7) 5.1 RBC: (N: M: 3.8-5.2) 2.88 Hemoglobin: (N: M: 12-17. F: 11 0.7-16.0) 8.5 Hematocrit: (N:35-47) 26.4 MCV: (N: 77-99) 9-1.7 MCH: (N: 26-34) 29.5 MCHC: (N: 30.5-6) 32.2 Platelet count: (N: 140-440) 227 MPV: (N: 9-12.7) 8.8 Vitamin D: (N: 30-100) Not available THYROID PANEL TSH: N: 0.35-4.94) 3.04 URINALYSIS: Glucose: 500. Protein: 100 Nitrite: Negative BLOOD CULTURE: No growth after 24 hours. SARS CoV-2: Not detected VIRAL PANEL (Influenza A/B, RSV): Not detected CHEST X-RAY No acute cardiopulmonary disease. EKG Sinus rhythm (80/min) NEUROLOGICAL EXAMINATION Observation Mr. Ashton is lying comfortably in bed, in no acute distress. Objective - No objective physical examination findings were documented during this encounter. - No neurologic deficits were noted during this encounter. Level of cooperation Pleasant: Agreeable manners, & behavior. Cooperative: Willingness & ability to work in a common effort. Attitude Frustrated Behavior & psychomotor activity Pain behavior Facial expression Normal: Proper to the medical/neurologic situation. Speech Normal: In rate, tone, volume & content. Cognitive evaluation Memory: Normal Attentive: Normal 1 Repeat backwards: 742 CEREBELLAR FUNCTION No tremor. No jerking or twitching was noted during this evaluation. No extraneous movements. CRANIAL NERVES II-XII: Normal NEUROMUSCULAR deferred. I am unable to examine him because he sat in a wheelchair backing me in a tight space as his bed was being made up, to be followed by an elaborate assisted change in clothing. 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 CLINICAL PRESENTATION & DECISION ANALYSIS/DIFFERENTIAL DIAGNOSIS ASSESSMENT Assessment Mr. Ashton presents with generalized pain, myoclonic jerks, hand shaking, chills, cold intolerance, and confusion following dialysis. The pain is widespread and affects his back, right arm, right shoulder, and right hand, with difficulty making a fist. His pain is consistent with osteoarthritis of the joints. The neurologic symptoms include intermittent myoclonic jerks and hand shaking, which have led to functional impairment and confusion, particularly after dialysis. Chills and persistent cold intolerance have also developed over the past one to two weeks. The primary neurologic complaint is myoclonic jerks, likely secondary to electrolyte imbalance associated with end-stage renal disease (ESRD) and hemodialysis, in particular uremic encephalopathy. DIFFERENTIAL DIAGNOSIS Differential diagnosis for the jerks includes Uremic encephalopathy, Medication-induced myoclonus, Metabolic disturbances (such as hypocalcemia, hyponatremia, or hypophosphatemia), and Infection-related neurologic symptoms. Confusion may be related to Metabolic derangements, Uremia, or Possible infection. Pain may be multifactorial, including Musculoskeletal causes such as osteoarthritis Neuropathic pain, or Related to underlying chronic kidney disease. CLINICAL DISEASE ANALYSIS NEUROLOGY TREATMENT RECOMMENDATION/GOALS NEURO PHARMACOTHISAPY NEURO NON-PHARMACOTHISAPY Laboratory tests have been ordered to assess serum sodium, potassium, calcium, and phosphorus levels to evaluate for possible electrolyte imbalances contributing to myoclonic jerks and other symptoms. Results will be reviewed upon completion. The treatment plan for the neurologic symptoms will depend on the laboratory findings; correction of any identified electrolyte abnormalities will be prioritized. However, in regard to uremic encephalopathy the BUN results from plasma do not directly correlate with the cerebrospinal fluid uremic levels as there is a significant delay in removal of urea from the spinal fluid after dialysis. Hence neurologic symptoms may persist even with lowered BUN post dialysis. NEURO-TREATMENT COMPLEXITIES/ADVERSE EFFECT(S) DRUG-DRUG INTERACTION No new medications are being recommended at this time, so there are no additional adverse effects or drug-drug interactions to address. PROGNOSIS FOR NEUROLOGIC RECOVERY Not established at this time. NEUROLOGY REEVALUATION WITH DR. Kilgore No further neurological intervention is needed at this time. NEEDLE GRADER During this comprehensive evaluation, I dedicated a significant amount of time, 75 minutes, to thoroughly reviewing all current medical records and relevant diagnostic tests. This thoroughness was essential for me to engage in a [id number] interview and conduct a focused neurological examination, aimed at better understanding Mr. Ashton 's neurologic complaints. During our discussion, I took the opportunity to explain the current diagnosis, detailing its development, potential alternative diagnoses, and various treatment options. I made sure to involve him in the decision-making process, discussing what we can anticipate as we proceed and ensuring he felt informed and comfortable with the neurological diagnosis and its underlying causes. Together, we carefully reviewed the results of the relevant neurodiagnostic tests, and I communicated the benefits and risks of the current neurologic management plan clearly and straightforwardly. I discussed the proposed care plan, ensuring it was at a level that he could understand. He voiced his agreement with the current neurological care. REFERRING PHYSICIAN: I updated the referring physician, & the treatment team with my Medical Decision Making. Please note With Mr. Ashton 's approval, I created this report using Fliplingo recognition system, [employer], and [employer]-airline pilot flight instructor. I conducted an accurate and prompt insulation extruder operator and a thorough editorial review. Acknowledging that some subtle contextual errors may still be present is essential. These errors can arise from the misrecognition of spoken words, which is common when integrating human voice with advanced digital technologies. This interaction can sometimes lead to misunderstandings or misinterpretations in the text. Please let me know if you notice any errors, discrepancies, or inconsistencies in this report. Your feedback is valuable in helping me maintain the quality and accuracy of the information presented. Thanks for your understanding and cooperation. Lauri Kilgore MD Comprehensive Neurologist [phone] [employer] Phone: 11-28-2024 Consult note Associated Order (s): IP CONSULT TO NEUROLOGY NEUROLOGY INITIAL CONSULTATION DATE/TIME: NOVEMBER [id number] [] PATIENT's NAME: POLI Cartagena DATE OF : [birth year] AGE: 63 GENDER: Male ROOM: [facility]/A PHYSICIAN REQUESTING CONSULT: Dr. Hills NEUROLOGIST: Lauri Kilgore MD DATE OF ADMISSION: 11-25-24 REASON FOR NEUROLOGY CONSULTATION: Persistent tremors/twitching HISTORY OF PRESENT ILLNESS ED HISTORY OF PRESENT ILLINESS José Manuel Ashton is a 63-year-old man who was admitted to the Emergency Department at [facility] on 11-25-24 . He presented with body chills and shaking. ED vitals: BP: 131/54 HR: 80 RR: 18 O2 sat: 96 % HT: 70 ins Wt.: 265 Lbs. BMI: 38 (Obese Class: III) Mr. Ashton can give me a limited neurological history. NEURO-RELEVANT SYMPTOM PROFILE Onset of symptoms: 2 weeks Description of symptoms: Persistent tremors/twitching Subjective Mr. Ashton is a 63-year-old man. Pain and musculoskeletal symptoms: Neurological symptoms: Within the last couple of weeks, Mr. Ashton has noticed the onset of jerks, which he describes as involuntary movements that cause his to spill drinks and food, such as coffee and cereal. These jerks occur intermittently and are not present all the time but come and go. He also reports shaking of his hands, which he has noticed over the same time period. After his last dialysis session on Monday, others reported that he was confused and didn't make a lick of sense, which led to his current evaluation. He does not report improvement in these symptoms after dialysis; instead, he notes that his symptoms have progressively worsened over time. The jerks and confusion are distressing to him and have impacted his ability to function normally. Over the past two weeks, Mr. Ashton has experienced significant pain described as "a lot of pain" that is generalized and affects multiple areas of the body. He specifically reports back pain and pain in his right arm that radiates up to his right shoulder and into his right hand. He notes difficulty making a fist due to pain and discomfort in his hand. The pain in his arm and hand has persistent and has recently started affecting his right hand in addition to his arm and shoulder. These symptoms are concerning to him as they interfere with his ability to perform daily activities and cause significant discomfort. Cold intolerance and chills: Mr. Ashton reports experiencing chills that began approximately one to two weeks ago. He feels cold most of the time and describes himself as "always cold." The sensation of coldness is persistent and has been present throughout the recent onset of his symptoms. This ongoing cold intolerance is a source of discomfort and concern for his. Dialysis-related symptoms: Mr. Ashton is undergoing hemodialysis and notes that his symptoms, including pain, jerks, and confusion, do not improve after dialysis. He reports that his symptoms have been worsening, rather than get better immediately after dialysis. He specifically mentions that his confusion after dialysis was observed by others, who found his speech and behavior to be nonsensical. He is concerned about the relationship between his dialysis treatments and his worsening symptoms. Negative acute neurologic symptoms: No loss of consciousness, no cognitive impairment, no memory impairment, no headaches, no dizziness/vertigo, no syncopal episodes, no diplopia, no visual impairment, no auditory impairment, no facial paresis, no aphasia, no dysphagia, no extremity paresis, no extremity sensory deficit. NEURO-RELEVANT REVIEW OF SYSTEMS NEUROLOGY Aphasia Ataxia Balance impairment Cognitive/Memory impairment CVA/TIA Diplopia Dizziness Dysesthesia Dystonia Facial asymmetry Falls, unintended Fasciculation Gait disorder Headache/migraine Hearing impairment Hyperesthesia Hypoesthesia Inattentiveness Insomnia Involuntary movement/Tremor Major neurocognitive disorder (dementia) Memory impairment Multiple sclerosis Myasthenia Myopathy Narcolepsy Near-syncope Neuropathy Numbness Paresthesia Parkinsonism/Parkinson's disease Restless leg syndrome Seizures/epilepsy Speech Difficulty Syncope Tremor (Essential) Vestibular balance dysfunction Weaknesses ABNORMAL NEGATIVE CARDIOVASCULAR Angina Bradycardia Cardiac pacemaker Cardiac stent Cardiomegaly Claudication Coronary artery disease ECG, abnormal Heart attack Heart murmur Hypertension Irregular heart rhythm/fibrillation Palpitation Peripheral edema, pitting Peripheral vascular disease Tachycardia ABNORMAL NEGATIVE DERMATOLOGY NEGATIVE EAR, NOSE, & THROAT Dental caries NEGATIVE ENDOCRINOLOGY Cold allodynia Diabetes mellitus Hypercalcemia Hyperglycemia Obesity Parathyroid disease Pituitary dysfunction Polydipsia Polyuria Proptosis Thyroid disease Uhthoff's phenomenon ABNORMAL NEGATIVE GASTROINTESTINAL NEGATIVE GENERAL NEGATIVE GENITOURINARY Acute/subacute/chronic kidney injury Benign prostatic hyperplasia Cystitis Dysuria Hematuria Nephrolithiasis/urolithiasis Nocturia Overactive bladder Pollakiuria Prostate cancer Pyelonephritis Urethritis Urinary incontinence/OAB Urinary retention acute/chronic Urinary tract infection ABNORMAL NEGATIVE HEMATOLOGY Anemia Bleeding disorder Blood clots Hemophilia Hodgkin's lymphoma Leukemia Lymphoma Multiple myeloma Myelodysplastic disease Pancytopenia Thrombocytopenia/thrombocytosis ABNORMAL NEGATIVE MUSCULOSKELETAL Arthralgia Arthritis Back pain Back stiffness Cervicalgia Fibromyalgia Muscle cramps/spasm Myalgia Myopathy Nuchal rigidity Osteoarthritis ABNORMAL NEGATIVE NECK NEGATIVE OPHTHALMOLOGY NEGATIVE ORTHOPEDIC Deformities Fracture Hip & knee & ankle injury Lumbar radiculopathy Tendon injury Tumors Shoulder & Elbow & hand injury Spinal stenosis ABNORMAL NEGATIVE PSYCHIATRY/PSYCHOLOGY Alcohol use disorder Anxiety Behavioral disorder Bipolar disorder Depression Hallucination Hypersomnia Insomnia Irritability/agitation Mood disorder Nicotine dependence PTSD Sleep disturbance Suicidal Ideation ABNORMAL NEGATIVE PULMONARY NEGATIVE RHEUMATOLOGY Gout Lupus Osteoarthritis Osteoporosis Polymyalgia rheumatica Polymyositis Psoriasis arthritis Rheumatoid arthritis Scleroderma Sj gren's Syndrome Tendinitis Vasculitis ABNORMAL NEGATIVE SLEEP NEGATIVE NEURO-RELEVANT PAST MEDICAL/SURGERY HISTORY NEURO-RELEVANT MEDICAL HISTORY NEUROLOGY Cognitive impairment Ataxia Neuropathy CARDIOLOGY Hypertension ENT Dizziness ENDOCRINOLOGY Type II diabetes GASTROENTEROLOGY Will's esophagitis Rectal cancer GENITOURINARY Chronic kidney disease HEMATOLOGY Anemia NEUROMUSCULAR Muscle weakness ORTHOPEDIC Lumbar radiculopathy Spinal stenosis PSYCHIATRY/PSYCHOLOGY Depression SUPPLEMENTAL Hyperkalemia Hyperlipidemia Hypernatremia Vitamin D deficiency NEURO-RELEVANT PAST SURGERY HISTORY NEUROLOGY None NEURO-RELEVANT MEDICATION/DRUG/OTC REVIEW NEURO-RELEVANT OUTPATIENT TREATMENT NEUROLOGY None CARDIOLOGY Hydralazine 50 mg GASTROENTEROLOGY Dulcolax 10 mg NEUROMUSCULAR Flexeril 10 mg Oxycodone 5 mg PSYCHIATRY Valium 10 mg DRUG ALLERGIES None known NEURO-RELEVANT SOCIAL HISTORY Currently smoking: No Currently vaping: No Current alcohol use: No Current caffeine use: Not known. Current drug use non-medication: No ADDITIONAL: NEURO-RELEVANT RELEVANT FAMILY HISTORY Family history is significant: NEURO-RELEVANT NEURODIAGNOSTIC LAB RESULTS ELECTROLYTES PANEL Sodium: (N: 136-145) 143 Potassium: (N: 3.5-5.1) 4.7 RENAL PANEL BUN: (N: 9-23) 43 Creatinine: (N: 0.57-1.11) 4.87 GFR: (N: >60) 12.6 Phosphorus: (N: 2.3-4.7) not available Total protein: (N: 6.4-8.3) 6.1 Albumin: (N: 3.5-5.0) 2.8 Calcium: (N: 8.8-10) 8.8 Magnesium: (N: 1.6-2.6) 2.0 DIABETES PANEL Glucose: (N: 82-115) 135 HbA1c: (N: <5.7- <6.5) 5.5 Beta hydroxybutyrate: (N: <2.8) Not available HEPATIC PANEL Alkaline phosphatase: (N: 40-140) 111 AST: (N: <34) 28 ALT: (N: <30) 34 Total Bilirubin: (N: <1.2) 0.4 Direct Bilirubin: (N: 3.4-4.8) Not available Ammonia: (N: 18-72) Lipase: (N: ) Not available Lactic acid: (N: 0.5-2.2) 0.7 CARDIAC PANEL CK: (N: 30-185) Troponin HS serial baseline: (N: <14) Troponin HS serial second: (N: <14) NT PRO BNP: (N: <450) Protime: (N: 0.9-12) INR: (N: 0.9-1.1) APTT: (N: 20-30.5) LIPID PANEL Triglyceride: (N: <150) HDL: (N: >60) LDL: (N: <100) Cholesterol: (N: <200) CBC WBC: (N: 3.6-10.7) 5.1 RBC: (N: M: 3.8-5.2) 2.88 Hemoglobin: (N: M: 12-17. F: 11 0.7-16.0) 8.5 Hematocrit: (N:35-47) 26.4 MCV: (N: 77-99) 9-1.7 MCH: (N: 26-34) 29.5 MCHC: (N: 30.5-6) 32.2 Platelet count: (N: 140-440) 227 MPV: (N: 9-12.7) 8.8 Vitamin D: (N: 30-100) Not available THYROID PANEL TSH: N: 0.35-4.94) 3.04 URINALYSIS: Glucose: 500. Protein: 100 Nitrite: Negative BLOOD CULTURE: No growth after 24 hours. SARS CoV-2: Not detected VIRAL PANEL (Influenza A/B, RSV): Not detected CHEST X-RAY No acute cardiopulmonary disease. EKG Sinus rhythm (80/min) NEUROLOGICAL EXAMINATION Observation Mr. Ashton is lying comfortably in bed, in no acute distress. Objective - No objective physical examination findings were documented during this encounter. - No neurologic deficits were noted during this encounter. Level of cooperation Pleasant: Agreeable manners, & behavior. Cooperative: Willingness & ability to work in a common effort. Attitude Frustrated Behavior & psychomotor activity Pain behavior Facial expression Normal: Proper to the medical/neurologic situation. Speech Normal: In rate, tone, volume & content. Cognitive evaluation Memory: Normal Attentive: Normal 1 Repeat backwards: 742 CEREBELLAR FUNCTION No tremor. No jerking or twitching was noted during this evaluation. No extraneous movements. CRANIAL NERVES II-XII: Normal NEUROMUSCULAR deferred. I am unable to examine him because he sat in a wheelchair backing me in a tight space as his bed was being made up, to be followed by an elaborate assisted change in clothing. 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 CLINICAL PRESENTATION & DECISION ANALYSIS/DIFFERENTIAL DIAGNOSIS ASSESSMENT Assessment Mr. Ashton presents with generalized pain, myoclonic jerks, hand shaking, chills, cold intolerance, and confusion following dialysis. The pain is widespread and affects his back, right arm, right shoulder, and right hand, with difficulty making a fist. His pain is consistent with osteoarthritis of the joints. The neurologic symptoms include intermittent myoclonic jerks and hand shaking, which have led to functional impairment and confusion, particularly after dialysis. Chills and persistent cold intolerance have also developed over the past one to two weeks. The primary neurologic complaint is myoclonic jerks, likely secondary to electrolyte imbalance associated with end-stage renal disease (ESRD) and hemodialysis, in particular uremic encephalopathy. DIFFERENTIAL DIAGNOSIS Differential diagnosis for the jerks includes Uremic encephalopathy, Medication-induced myoclonus, Metabolic disturbances (such as hypocalcemia, hyponatremia, or hypophosphatemia), and Infection-related neurologic symptoms. Confusion may be related to Metabolic derangements, Uremia, or Possible infection. Pain may be multifactorial, including Musculoskeletal causes such as osteoarthritis Neuropathic pain, or Related to underlying chronic kidney disease. CLINICAL DISEASE ANALYSIS NEUROLOGY TREATMENT RECOMMENDATION/GOALS NEURO PHARMACOTHISAPY NEURO NON-PHARMACOTHISAPY Laboratory tests have been ordered to assess serum sodium, potassium, calcium, and phosphorus levels to evaluate for possible electrolyte imbalances contributing to myoclonic jerks and other symptoms. Results will be reviewed upon completion. The treatment plan for the neurologic symptoms will depend on the laboratory findings; correction of any identified electrolyte abnormalities will be prioritized. However, in regard to uremic encephalopathy the BUN results from plasma do not directly correlate with the cerebrospinal fluid uremic levels as there is a significant delay in removal of urea from the spinal fluid after dialysis. Hence neurologic symptoms may persist even with lowered BUN post dialysis. NEURO-TREATMENT COMPLEXITIES/ADVERSE EFFECT(S) DRUG-DRUG INTERACTION No new medications are being recommended at this time, so there are no additional adverse effects or drug-drug interactions to address. PROGNOSIS FOR NEUROLOGIC RECOVERY Not established at this time. NEUROLOGY REEVALUATION WITH DR. Kilgore No further neurological intervention is needed at this time. NEEDLE GRADER During this comprehensive evaluation, I dedicated a significant amount of time, 75 minutes, to thoroughly reviewing all current medical records and relevant diagnostic tests. This thoroughness was essential for me to engage in a [id number] interview and conduct a focused neurological examination, aimed at better understanding Mr. Ashton 's neurologic complaints. During our discussion, I took the opportunity to explain the current diagnosis, detailing its development, potential alternative diagnoses, and various treatment options. I made sure to involve him in the decision-making process, discussing what we can anticipate as we proceed and ensuring he felt informed and comfortable with the neurological diagnosis and its underlying causes. Together, we carefully reviewed the results of the relevant neurodiagnostic tests, and I communicated the benefits and risks of the current neurologic management plan clearly and straightforwardly. I discussed the proposed care plan, ensuring it was at a level that he could understand. He voiced his agreement with the current neurological care. REFERRING PHYSICIAN: I updated the referring physician, & the treatment team with my Medical Decision Making. Please note With Mr. Ashton 's approval, I created this report using [employer] recognition system, [employer], and [employer]-airline pilot flight instructor. I conducted an accurate and prompt insulation extruder operator and a thorough editorial review. Acknowledging that some subtle contextual errors may still be present is essential. These errors can arise from the misrecognition of spoken words, which is common when integrating human voice with advanced digital technologies. This interaction can sometimes lead to misunderstandings or misinterpretations in the text. Please let me know if you notice any errors, discrepancies, or inconsistencies in this report. Your feedback is valuable in helping me maintain the quality and accuracy of the information presented. Thanks for your understanding and cooperation. Lauri Kilgore MD Comprehensive Neurologist [phone] Associated Order(s): IP CONSULT TO NEPHROLOGY [facility] Consultation Note Reason for consultation: ESRD and management of dialysis Chief Complaint: weakness, chills, lethargy History of Presenting Illness Patient is a 63 y.o. male with past medical history significant for HTN, ESRD, T2DM, HLD, Depression, and anemia, who presents with chief complaint listed above. He had been at his nursing facility and had increasing lethargy, weakness and chills. He is on HD -. Facility staff noticed he was "not acting like himself". CXR on admission was unremarkable, Nephrology is consulted for evaluation and management of ESRD and hemodialysis. Patient follows with Dr. Dudley at [facility]. He receives HD at his facility - to a DW of 115 kg. Last HD treatment was yesterday, 11/25. Patient's access is a TDC R IJ. No need for urgent dialysis and will plan for therapy tomorrow. Review of Systems All 12 systems have been reviewed and are negative except for what is mentioned in the HPI. Allergies Penicillins Family History Family History[1] Social History Social History[2] Medications Prescriptions Prior to Admission[3] Current Medications: Scheduled Meds[4] Continuous Infusions:Continuous Meds[5] PRN Meds:PRN Meds[6] Physical Exam Vitals: 11/26/24 0233 11/26/24 0858 11/26/24 1444 11/26/24 1501 BP: 104/66 137/56 154/73 BP Location: Right arm Right arm Patient Position: Lying Pulse: 81 82 90 Resp: 16 18 18 Temp: 36.5 C (97.7 F) 36.2 C (97.1 F) TempSrc: Oral Temporal SpO2: 100% 97% 99% Weight: 113 kg (250 lb) Height: 1.778 m (5' 10") 24 HR INTAKE/OUTPUT: Intake/Output Summary (Last 24 hours) at 11/26/2024 1615 Last data filed at 11/25/2024 1753 Gross per 24 hour Intake 500 ml Output -- Net 500 ml General: Ill appearing, cooperative to history and physical exam. Head: NCAT Eye: anicteric sclera Mouth: mucus membrane moist Neck: Supple Chest: B/L equal air entry, no crackles, no accessory muscles usage. CV: s1s2 heard Abdomen: NT, non distended, soft, + bs, No palpable masses Extremities: No peripheral edema, no cyanosis or clubbing Skin: Warm, no rash Neurological: A&O x 3, speech clear coherent Psychiatric: normal insight and judgement, good recall Access: TDC R IJ Data Recent Labs 11/25/24 1252 WBC 6.9 HGB 9.2* HCT 28.8* MCV 91.4 PLT 220 Recent Labs 11/25/24 1252 11/26/24 0457 NA 139 140 K 4.4 4.4 CL 99 105 CO2 25 24 GLUCOSE 178* 123* MG 2.0 -- BUN 49* 56* CREATININE 5.14* 5.70* Albumin: No components found for: LABALBU Calcium: Lab Results Component Value Date CALCIUM 9.0 11/26/2024 No results found for: "APPEARANCE", "COLORU", "LABSPEC", "LABPH", "URINE", "GLUCOSEU", "UROBILINOGEN", "BILIRUBINUR", OCBU Assessment 63 y.o. male with ESRD N18.6 HTN in CKD I12.9 Anemia in CKD D63.1 T2DM in CKD E11.22 Lethargy R53.83 Dependence on hemodialysis RECOMMENDATIONS: - Will plan for HD tomorrow. HD schedule -, last session was yesterday 11/25. I was able to get in contact with his dialysis nurse at [facility] and she confirmed his DW had recently been increased from 112.5 kg to 115 kg. Weight on admission was 113 kg - Strict I&Os - Daily weight - Continue with renal diet - ESRD hgb goal > 10 - Okay for prn transfusions for hgb < 7 - Avoid nephrotoxins and IV contrast dye - Dose all meds per GFR < 15 - Rest of management per primary team We will follow. Thank you for asking us to participate in the management of your patient, please do not hesitate to contact me for any concerns regarding my recommendations as outlined above. [facility] Office [1] No family history on file. [2] Social History Socioeconomic History Marital status: Single Social Drivers of Health Financial Resource Strain: Medium Risk (05/24/2023) Received from [facility] Overall Financial Resource Strain (CARDIA) Difficulty of Paying Living Expenses: Somewhat hard Food Insecurity: No Food Insecurity (11/26/2024) Hunger Vital Sign Worried About Running Out of Food in the Last Year: Never true Ran Out of Food in the Last Year: Never true Transportation Needs: No Transportation Needs (11/26/2024) PRAPARE - Transportation Lack of Transportation (Medical): No Lack of Transportation (Non-Medical): No Physical Activity: Insufficiently Active (12/28/2021) Received from [facility] Exercise Vital Sign Days of Exercise per Week: 7 days Minutes of Exercise per Session: 20 min Stress: Stress Concern Present (12/28/2021) Received from [facility] [place] [employer] - Occupational Stress Questionnaire Feeling of Stress : Very much Social Connections: Socially Isolated (12/28/2021) Received from [facility] Social Connection and Isolation Panel [NHANES] Frequency of Communication with Friends and Family: Once a week Frequency of Social Gatherings with Friends and Family: Never Attends [employer] Services: Never Active Member of Clubs or Organizations: Yes Attends Club or Organization Meetings: Never Marital Status: Never Intimate Partner Violence: Not At Risk (11/26/2024) Humiliation, Afraid, Rape, and Kick questionnaire Fear of Current or Ex-Partner: No Emotionally Abused: No Physically Abused: No Sexually Abused: No Housing Stability: Low Risk (11/26/2024) Housing Stability Vital Sign Unable to Pay for Housing in the Last Year: No Number of Times Moved in the Last Year: 0 Homeless in the Last Year: No [3] Medications Prior to Admission Medication Sig Dispense Refill Last Dose/Taking acetaminophen (Tylenol) 325 MG tablet Take 325 mg by mouth every 6 hours as needed for fever, mild pain (1-3) or moderate pain (4-6). bisacodyl (Dulcolax) 10 MG suppository Insert 10 mg into the rectum Daily as needed for constipation. bisacodyl (Dulcolax) 5 MG EC tablet Take 5 mg by mouth Daily as needed for constipation. Do not crush, chew, or split. cyclobenzaprine (Flexeril) 10 MG tablet Take 5 mg by mouth 3 times daily as needed for muscle spasms. diazePAM (Valium) 10 MG tablet Take 10 mg by mouth every 8 hours as needed for muscle spasms. hydrALAZINE (Apresoline) 50 MG tablet Take 50 mg by mouth 2 times daily. oxyCODONE (Roxicodone) 5 MG immediate release tablet Take 10 mg by mouth every 6 hours as needed for severe pain (7-10). [4] amLODIPine, 5 mg, Oral, Daily heparin, 5,000 Units, SubCUTAneous, 2 times per day hydrALAZINE, 50 mg, Oral, BID insulin glargine, 10 Units, SubCUTAneous, Nightly insulin lispro, 0-6 Units, SubCUTAneous, TID WC insulin lispro, 3 Units, SubCUTAneous, TID WC oxyCODONE-acetaminophen, 1 tablet, Oral, Once vancomycin, 750 mg, IntraVENous, Once vancomycin (Vancocin) intermittent dosing (placeholder), , Other, See admin instructions [5] [6] PRN medications: acetaminophen OR acetaminophen, dextrose, dextrose, glucagon (rDNA), glucose, ipratropium-albuterol, naloxone, ondansetron ODT OR ondansetron, oxyCODONE, polyethylene glycol (PEG) 3350 Cosigned by Tosha Barriga MD at 11/26/2024 9:51 PM EDT Associated attestation - Tosha Barriga MD - 11/26/2024 9:51 PM EDT I have reviewed the above assessment and plan with the WILDLIFE CONSERVATIONIST. I agree with above note. HD tomorrow. Patient established with Dr Abiel Dudley outpatient. We cover his patients here. Associated Order(s): IP CONSULT TO ENDOCRINOLOGY Department of Internal Medicine Division of Endocrinology, Diabetes, & Metabolism Endocrinology Note Patient Name: José Manuel Ashton : 1960 AGE: 63 y.o. Room/Bed: Admission Date: 11/25/2024 Visit Date: 11/26/2024 Reason for Endocrine Consult: DM/Pt on U300 insulin Provider/Team Requesting Consult: Dr. 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 ICU goal <180 GMF goal <150 POCT BG ACHS Hypoglycemia management per protocol Carb controlled diet ANTICIPATED ENDOCRINE HOME GOING RECOMMENDATIONS: Optimized for Discharge from Endocrine standpoint: No Home Going Endocrine Rx Recommendations-- Toujeo 18 units daily Humalog 8 units TID AC plus medium dose sliding scale Outpt Follow Up-- [facility] Endocrinology SUBJECTIVE/HPI: CHIEF COMPLAINT: Chief Complaint Patient presents with Altered Mental Status Pt presents to ED via EMS from [facility] for responding slowly and indicates he is cold. José Manuel Ashton is a 63 yo male who presented to ED from [facility] with Tremor, chills and delayed response. Patient has baseline cognitive limitations but is able to answer questions. PMH: ESRD on dialysis, DM Type of DM: 2 Onset of DM: Before 2020 Home DM Medication Regimen: Toujeo 18 units daily Humalog 8 units TID AC plus medium dose sliding scale DM control (last A1c/glucose data): Lab Results Component Value Date HGBA1C 5.5 11/26/2024 Interval history: Patient alert sitting up in bed [facility] not sure of insulin doses at [facility] - Does not give his own injections. Reports blood sugars are checked before meals but not sure what blood sugar levels are. Carb controlled diet Patient reports tremors, chills Feels unsteady on feet. PT was stopped at [facility] per patient. Glucose Date/Time Value Ref Range Status 11/25/2024 10:17 PM 187 (H) 70 - 100 mg/dL Final 11/25/2024 08:46 PM 167 (H) 70 - 100 mg/dL Final 11/25/2024 06:45 PM 119 (H) 70 - 100 mg/dL Final Previously used medications: Metformin Lantus Actos Trulicity Ozempic Review of Systems Constitutional: Positive for chills. Respiratory: Negative for shortness of breath. Cardiovascular: Negative for chest pain and palpitations. Neurological: Positive for tremors. ROS negative except for those mentioned in HPI. OBJECTIVE: Vitals: 11/25/24 1804 11/25/24 2047 11/25/24 2219 11/26/24 0233 BP: 132/62 (!) 99/47 119/51 104/66 BP Location: Left arm Left arm Patient Position: Lying Lying Pulse: 80 85 83 81 Resp: 18 16 18 16 Temp: TempSrc: SpO2: 100% 95% 100% 100% Weight: Height: Physical Exam Vitals and nursing note reviewed. Constitutional: General: He is not in acute distress. Appearance: He is not toxic-appearing or diaphoretic. HENT: Head: Normocephalic. Nose: Nose normal. Mouth/Throat: Mouth: Mucous membranes are moist. Eyes: Conjunctiva/sclera: Conjunctivae normal. Cardiovascular: Rate and Rhythm: Normal rate and regular rhythm. Pulses: Normal pulses. Heart sounds: Normal heart sounds. Pulmonary: Effort: Pulmonary effort is normal. Musculoskeletal: Right lower leg: No edema. Left lower leg: No edema. Skin: General: Skin is warm. Neurological: Mental Status: He is alert. Psychiatric: Mood and Affect: Mood normal. Behavior: Behavior normal. 24 hour intake/output: Intake/Output Summary (Last 24 hours) at 11/26/2024 0823 Last data filed at 11/25/2024 1753 Gross per 24 hour Intake 500 ml Output -- Net 500 ml Diet: Adult diet Regular; 5 carb choices (75 gm/meal) Medications (as per EMR): HomeMeds: Current Outpatient Medications Medication Instructions acetaminophen (TYLENOL) 325 mg, Oral, Every 6 hours PRN bisacodyl (DULCOLAX) 5 mg, Oral, Daily PRN, Do not crush, chew, or split. bisacodyl (DULCOLAX) 10 mg, Rectal, Daily PRN hydrALAZINE (APRESOLINE) 50 mg, Oral, 2 times daily Scheduled Meds:Scheduled Meds[1] Continuous Infusions:Continuous Meds[2] PRN Meds:PRN Meds[3] Diagnostic Workup: I reviewed pertinent Laboratory results, Radiographic results, and Other Clinical Notes at the time of today's encounter. Labs: No components found for: "LABA1C" No components found for: "EAG" Lab Results Component Value Date NA 140 11/26/2024 K 4.4 11/26/2024 CL 105 11/26/2024 CO2 24 11/26/2024 BUN 56 (H) 11/26/2024 CREATININE 5.70 (H) 11/26/2024 GLUCOSE 123 (H) 11/26/2024 CALCIUM 9.0 11/26/2024 No results found for: "CHLPL", CHOL No results found for: "TRIG" No results found for: "HDL" No results found for: "LDLCALC" No results found for: "VLDL" No results found for: CHOLHDLRATIO No results found for: "CLAM55PAF" No results found for: "TSH", "E4DZMCU", "J0ECIZR", "THYROIDAB" Radiology reportsas per the Radiologist Radiology: POCT glucose meter Result Date: 11/25/2024 Performed by: Felicita Daly [address] [place] [id number] CLIA ID: [id number] POCT glucose meter Result Date: 11/25/2024 Performed by: Felicita Daly [address] [place] [id number] CLIA ID: [id number] POCT glucose meter Result Date: 11/25/2024 Performed by: Felicita Daly [address] [place] [id number] CLIA ID: [id number] ECG 12 lead Sinus rhythm Low voltage, extremity leads EKG from interpretation shows normal sinus rhythm at a rate of 80 with normal axis. There is low voltage in extremity leads. There is an abnormal R wave progression versus old septal infarct. There is no acute ST elevation or ST depression. Intervals are within normal limits otherwise. There were no old EKGs available for comparison. Electronically Signed On 11-25-2024 14:52:25 EDT by Omid Adames XR chest 1 view Result Date: 11/25/2024 Patient Name: JOSÉ MANUEL ASHTON : 1960 Exam Date/Time: 11/25/2024 12:25 Procedure: XR CHEST 1 VIEW Ordering Provider: ADAMES TARAS Reason For Exam: Muscle weakness (generalized) PORTABLE CHEST CLINICAL INDICATION: Muscle weakness (generalized) TECHNIQUE: Portable AP COMPARISON: None FINDINGS: Tunneled right IJ dialysis catheter tip terminates over the proximal right atrium. Calcified granuloma overlying the left upper lung zone. No focal consolidation or pulmonary edema. No pleural effusions or pneumothorax. The cardiac and mediastinal silhouettes are normal. The osseous structures are unremarkable. No focal consolidation or pulmonary edema. Report Dictated on Electronically Signed By: Kj Duran MD Electronically Signed Date/Time: 11/25/2024 12:40 PM EDT History/Other: Past Medical History: Medical History[4] Past Surgical History: Surgical History[5] Allergy(ies): Allergies[6] Family History: Family History[7] Social History: Social History[8] Portions of the information within this encounter were entered using an electronic dictation system. Best attempts were made to edit/proofread the information prior to note completion. Despite the review of information, some errors may remain. If there are questions related to the information contained within the note please contact the signing physician directly. I spent 75 minutes with the pt which involved coordination of care, medical evaluation, review of records, and/or counseling of the pt regarding his/her condition/disease state/prognosis on the date of this note. [1] amLODIPine, 5 mg, Oral, Daily heparin, 5,000 Units, SubCUTAneous, 2 times per day hydrALAZINE, 50 mg, Oral, BID insulin lispro, 0-12 Units, SubCUTAneous, TID WC And insulin lispro, 0-12 Units, SubCUTAneous, Nightly oxyCODONE-acetaminophen, 1 tablet, Oral, Once vancomycin (Vancocin) intermittent dosing (placeholder), , Other, See admin instructions [2] sodium chloride, 75 mL/hr, Last Rate: 75 mL/hr (11/26/24 0623) [3] PRN medications: acetaminophen OR acetaminophen, dextrose, dextrose, glucagon (rDNA), glucose, ipratropium-albuterol, naloxone, ondansetron ODT OR ondansetron, oxyCODONE, polyethylene glycol (PEG) 3350 [4] Past Medical History: Diagnosis Date Anemia 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 No pertinent surgical history. [6] Allergies Allergen Reactions Penicillins Unknown Pt states he thinks he had a reaction as a child [7] No family history on file. [8] Cosigned by Luc Hatch MD at 11/27/2024 11:51 AM EDT Images from the original note were not included. Pharmacy Managed Vancomycin Dosing Service Consult Note Consult Date: 11/25/24 Patient Name: José Manuel Ashton Allergies: Penicillins Age: 63 y.o. Sex: male Estimated body mass index is 35.87 kg/m as calculated from the following: Height as of this encounter: 1.778 m (5' 10"). Weight as of this encounter: 113 kg (250 lb). Lab Results Component Value Date CREATININE 5.14 (H) 11/25/2024 CREATININE 1.69 (H) 10/01/2023 BUN 49 (H) 11/25/2024 BUN 33 (H) 10/01/2023 WBC 6.9 11/25/2024 WBC 14.8 (H) 10/01/2023 Renal: []HD []CRRT []PD [x] CrCl 22.9 ml/min (if TARYN, no MARKETING INTELLIGENCE MANAGER) Consulted By: Dr. Adames Vancomycin Level: []Trough [x]Random Infectious Diagnosis: Sepsis of unknown etiology (target level= mg/L) Antimicrobials: Patient recently received an antibiotic (last 12 hours) Date/Time Action Medication Dose Rate 11/25/24 1439 New Bag vancomycin (Vancocin) 2500 mg in 0.9% sodium chloride 500 mL IVPB (compounded premix) 2,500 mg 166.7 mL/hr Assessment/Plan: Intermittent vancomycin dosing (Pulse Dosing). Give Vancomycin 500 mg 24 based on patient age, weight, renal status and infectious diagnosis (4.4 mg/kg). Will adjust dose/frequency if needed according to level. Follow renal status closely. Orders placed. Thank you for this consult. Please page/call with questions. Date: 11/25/24 Time: 2:57 PM Analilia Solares PharmD (available on [employer]) documented in this encounter 11-28-2024 Note NEUROLOGY INITIAL CO NSULTATION DATE/TIME: NOVEMBER [id number] [] PATIENT's NAME: POLI Cartagena DATE OF : [birth year] AGE: 63 GENDER: Male ROOM: 466/A PHYSICIAN REQUESTING CONSULT: Dr. Hills NEUROLOGIST: Lauri Kilgoer MD DATE OF ADMISSION: 11-25-24 REASON FOR NEUROLOGY CONSULTATION: Persistent tremors/twitching HISTORY OF PRESENT ILLNESS ED HISTORY OF PRESENT ILLINESS José Manuel Ashton is a 63-year-old man who was admitted to the Emergency Department at [facility] on 11-25-24 . He presented with body chills and shaking. ED vitals: BP: 131/54 HR: 80 RR: 18 O2 sat: 96 % HT: 70 ins Wt.: 265 Lbs. BMI: 38 (Obese Class: III) Mr. Ashton can give me a limited neurological history. NEURO-RELEVANT SYMPTOM PROFILE Onset of symptoms: 2 weeks Description of symptoms: Persistent tremors/twitching Subjective Mr. Ashton is a 63-year-old man. Pain and musculoskeletal symptoms: Neurological symptoms: Within the last couple of weeks, Mr. Ashton has noticed the onset of jerks, which he describes as involuntary movements that cause his to spill drinks and food, such as coffee and cereal. These jerks occur intermittently and are not present all the time but come and go. He also reports shaking of his hands, which he has noticed over the same time period. After his last dialysis session on Monday, others reported that he was confused and didn't make a lick of sense, which led to his current evaluation. He does not report improvement in these symptoms after dialysis; instead, he notes that his symptoms have progressively worsened over time. The jerks and confusion are distressing to him and have impacted his ability to function normally. Over the past two weeks, Mr. Ashton has experienced significant pain described as "a lot of pain" that is generalized and affects multiple areas of the body. He specifically reports back pain and pain in his right arm that radiates up to his right shoulder and into his right hand. He notes difficulty making a fist due to pain and discomfort in his hand. The pain in his arm and hand has persistent and has recently started affecting his right hand in addition to his arm and shoulder. These symptoms are concerning to him as they interfere with his ability to perform daily activities and cause significant discomfort. Cold intolerance and chills: Mr. Ashton reports experiencing chills that began approximately one to two weeks ago. He feels cold most of the time and describes himself as "always cold." The sensation of coldness is persistent and has been present throughout the recent onset of his symptoms. This ongoing cold intolerance is a source of discomfort and concern for his. Dialysis-related symptoms: Mr. Ashton is undergoing hemodialysis and notes that his symptoms, including pain, jerks, and confusion, do not improve after dialysis. He reports that his symptoms have been worsening, rather than get better immediately after dialysis. He specifically mentions that his confusion after dialysis was observed by others, who found his speech and behavior to be nonsensical. He is concerned about the relationship between his dialysis treatments and his worsening symptoms. Negative acute neurologic symptoms: No loss of consciousness, no cognitive impairment, no memory impairment, no headaches, no dizziness/vertigo, no syncopal episodes, no diplopia, no visual impairment, no auditory impairment, no facial paresis, no aphasia, no dysphagia, no extremity paresis, no extremity sensory deficit. NEURO-RELEVANT REVIEW OF SYSTEMS NEUROLOGY Aphasia Ataxia Balance impairment Cognitive/Memory impairment CVA/TIA Diplopia Dizziness Dysesthesia Dystonia Facial asymmetry Falls, unintended Fasciculation Gait disorder Headache/migraine Hearing impairment Hyperesthesia Hypoesthesia Inattentiveness Insomnia Involuntary movement/Tremor Major neurocognitive disorder (dementia) Memory impairment Multiple sclerosis Myasthenia Myopathy Narcolepsy Near-syncope Neuropathy Numbness Paresthesia Parkinsonism/Parkinson's disease Restless leg syndrome Seizures/epilepsy Speech Difficulty Syncope Tremor (Essential) Vestibular balance dysfunction Weaknesses ABNORMAL NEGATIVE CARDIOVASCULAR Angina Bradycardia Cardiac pacemaker Cardiac stent Cardiomegaly Claudication Coronary artery disease ECG, abnormal Heart attack Heart murmur Hypertension Irregular heart rhythm/fibrillation Palpitation Peripheral edema, pitting Peripheral vascular disease Tachycardia ABNORMAL NEGATIVE DERMATOLOGY NEGATIVE EAR, NOSE, & THROAT Dental caries NEGATIVE ENDOCRINOLOGY Cold allodynia Diabetes mellitus Hypercalcemia Hyperglycemia Obesity Parathyroid disease Pituitary dysfunction Polydipsia Polyuria Proptosis Thyroid disease Uhthoff's phenomenon (more content not included)... [facility] 11-28-[address] [facility] Progress Note Subjective/ 63 y.o. year old male who we are seeing in consultation for ESRD. Interval History Admitted for weakness, chills, and lethargy Sitting up to bedside chair Still struggling with generalized pain Denies SOB, on RA BP stable Adequate PO intake 11/27: tolerated HD, 2.6 L removed ROS Otherwise negative No interval changes to PFSH. All interval notes/labs/imaging reviewed. Objective/ Vitals: 11/28/24 0758 11/28/24 1142 11/28/24 1358 11/28/24 1541 BP: 129/66 136/73 BP Location: Left arm Left arm Patient Position: Sitting Lying Pulse: 86 86 86 Resp: 17 16 Temp: 36.2 ?C (97.1 ?F) 36.3 ?C (97.3 ?F) TempSrc: Temporal Temporal SpO2: 96% 96% Weight: Height: 1.778 m (5' 10") 24HR INTAKE/OUTPUT: Intake/Output Summary (Last 24 hours) at 11/28/2024 1609 Last data filed at 11/28/2024 0300 Gross per 24 hour Intake 300 ml Output 2000 ml Net -1700 ml Physical Exam Constitutional: Appearance: He is obese. He is ill-appearing. HENT: Mouth/Throat: Mouth: Mucous membranes are moist. Eyes: Pupils: Pupils are equal, round, and reactive to light. Pulmonary: Effort: Pulmonary effort is normal. Breath sounds: Normal breath sounds. Abdominal: Palpations: Abdomen is soft. Musculoskeletal: General: Normal range of motion. Cervical back: Neck supple. Skin: General: Skin is warm and dry. Neurological: General: No focal deficit present. Mental Status: He is oriented to person, place, and time. Psychiatric: Mood and Affect: Mood normal. Behavior: Behavior normal. Scheduled Meds:Scheduled Meds[1] Continuous Infusions:Continuous Meds[2] PRN Meds:.PRN Meds[3] Data/ Recent Labs 11/27/24 0339 11/28/24 0641 WBC 5.0 5.1 HGB 8.5* 8.5* HCT 26.7* 26.4* MCV 91.1 91.7 PLT 216 227 Recent Labs 11/26/24 0457 11/27/24 0339 11/28/24 0641 NA 140 144 143 K 4.4 4.8 4.7 CL 105 106 106 CO2 24 27 27 GLUCOSE 123* 161* 135* BUN 56* 67* 43* CREATININE 5.70* 6.86* 4.87* Assessment/ 63 y.o. male with ESRD N18.6 HTN in CKD I12.9 Anemia in CKD D63.1 T2DM in CKD E11.22 Lethargy R53.83 Dependence on hemodialysis Plan/ - HD schedule is M-F at nursing facility, DW was recently increased from 112.5 kg to 115 kg. Tolerated inpatient HD yesterday, 2.6 L removed, will repeat session tomorrow - Blood cultures drawn 11/25 and 11/27: NGTD - Strict I&Os - Daily weight - Continue with renal diet - ESRD hgb goal > 10 - Okay for prn transfusions for hgb < 7 - Avoid nephrotoxins and IV contrast dye - Dose all meds per GFR < 15 - Rest of management per primary team We will follow. Please do not hesitate to call with any questions or concerns. [facility] This note is not finalized until authorized by Attending physician. [1] amLODIPine, 5 mg, Oral, Daily cyclobenzaprine, 5 mg, Oral, TID heparin, 5,000 Units, SubCUTAneous, 2 times per day hydrALAZINE, 50 mg, Oral, BID insulin glargine, 10 Units, SubCUTAneous, Nightly insulin lispro, 0-6 Units, SubCUTAneous, TID WC insulin lispro, 3 Units, SubCUTAneous, TID WC oxyCODONE-acetaminophen, 1 tablet, Oral, Once vancomycin (Vancocin) intermittent dosing (placeholder), , Other, See admin instructions [2] [3] PRN medications: acetaminophen OR acetaminophen, dextrose, dextrose, diazePAM, glucagon (rDNA), glucose, ipratropium-albuterol, naloxone, ondansetron ODT OR ondansetron, oxyCODONE, polyethylene glycol (PEG) 3350 [facility] 11-28-2024 Progress note Formatting of t his note might be different from the original. Sent updated notes to return back to [facility] per [facility] request. Await review and response regarding ability to accept. [facility] notified. 11-28-2024 Note Hospitalist Progress Note 11/28/2024 Subjective: Admit Date: 11/25/2024 PCP: Brittaney Garcia MD Room#: [id number]/[id number] A Interval History: No cp, sob, cough, n/v, f/c. Continues to have myoclonic jerking and difficulty handling things. Tolerating diet. Case and plan discussed with patient and LEATHA Auguste, separately. All questions answered. Adult diet Regular; 5 carb choices (75 gm/meal) 24HR INTAKE/OUTPUT: Intake/Output Summary (Last 24 hours) at 11/28/2024 1152 Last data filed at 11/28/2024 0300 Gross per 24 hour Intake 780 ml Output 2000 ml Net -1220 ml Past Medical History: Medical History[1] LABS: CBC: Recent Labs 11/25/24 1252 11/27/24 0339 11/28/24 0641 WBC 6.9 5.0 5.1 RBC 3.15* 2.93* 2.88* HGB 9.2* 8.5* 8.5* HCT 28.8* 26.7* 26.4* MCV 91.4 91.1 91.7 RDW 13.0 12.6 12.8 PLT 220 216 227 BMP: Recent Labs 11/26/24 0457 11/27/24 0339 11/28/24 0641 NA 140 144 143 K 4.4 4.8 4.7 CL 105 106 106 CO2 24 27 27 BUN 56* 67* 43* CREATININE 5.70* 6.86* 4.87* GLUCOSE 123* 161* 135* CALCIUM 9.0 9.0 8.8 ANIONGAP 11 11 10 LIVER PROFILE: Recent Labs 11/26/24 0457 11/27/24 0339 11/28/24 0641 AST 21 17 28 ALT 14 16 34 BILITOT 0.4 0.4 0.4 ALKPHOS 95 94 111 PROT 6.4 6.2* 6.1* PT/INR: No results for input(s): "PROTIME", "INR" in the last 72 hours. CARDIAC ENZYMES: No results for input(s): "TROPONINI" in the last 72 hours. Procalcitonin: Lab Results Component Value Date PROCAL 0.30 (H) 11/26/2024 COVID-19 PCR: No results for input(s): "COVID19" in the last 72 hours. Objective: Vitals: BP 129/66 (BP Location: Left arm, Patient Position: Sitting) Pulse 86 Temp 36.2 ?C (97.1 ?F) (Temporal) Resp 17 Ht 5' 10" (1.778 m) Wt 265 lb 8 oz (120 kg) SpO2 96% BMI 38.10 kg/m? Pulse Ox: SpO2 Av.8 % Min: 93 % Max: 98 % Supplemental O2: O2 Flow Rate (L/min): 2 L/min Physical Exam Vitals and nursing note reviewed. Constitutional: General: He is not in acute distress. Appearance: He is obese. HENT: Head: Normocephalic. Eyes: Conjunctiva/sclera: Conjunctivae normal. Pupils: Pupils are equal, round, and reactive to light. Cardiovascular: Rate and Rhythm: Normal rate and regular rhythm. Pulses: Normal pulses. Heart sounds: Murmur heard. Pulmonary: Effort: Pulmonary effort is normal. Comments: Coarse breath sounds bilaterally Abdominal: General: Bowel sounds are normal. There is no distension. Palpations: Abdomen is soft. Tenderness: There is no abdominal tenderness. Musculoskeletal: Cervical back: Normal range of motion. Right lower leg: No edema. Left lower leg: No edema. Skin: General: Skin is warm. Capillary Refill: Capillary refill takes less than 2 seconds. Neurological: General: No focal deficit present. Mental Status: He is alert and oriented to person, place, and time. Mental status is at baseline. Comments: Continues to have intermittent myoclonic jerking movements of UE Psychiatric: Mood and Affect: Mood normal. Medications: Scheduled PRN Scheduled Meds[2] PRN Meds[3] Continuous Continuous Meds[4] Assessment Lethargy and chills Myoclonic jerks and twitching Rule out infection HTN DM2 ESRD Anemia Hyperlipidemia Depression Class 3 obesity Plan Continue to monitor on telemetry, continue IV antibiotics for now- if cultures remain negative then dc tomorrow, continue to follow cultures, Neurology evaluating, Endocrinology and Nephrology following, continue HD per routine, PT/OT, follow up labs, continue POCT/SS insulin/scheduled insulin, discharge planning, see orders. - am labs, replace lytes prn - PT/OT/CM/SW - delirium precautions: increase activity - DVT prophylaxis: heparin and encourage ambulation Advance Directive: Full Code Anticipated Discharge - Date - 11/29-11/30 - Location - Skilled Facility - Pending the following - clinical improvement, antibiotic finalization and when OK with consultants Total time spent (which include face to face and non face to face encounters) : 46 minutes Toxic drug monitoring/narrow therapeutic index drug monitoring : # Drug name : vancomycin, SS insulin and heparin # Route administered : IV and subcutaneous and subcutaneous # Method of monitoring : blood levels/daily BMP and ac/hs blood glucose/daily BMP/hypoglycemia protocol and daily CBC Extended Emergency Contact Information Primary Emergency Contact: Janell Waldrop Mobile Relation: Sister Preferred language: Bahraini Fisher Hoop Net needed? 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 [facility] 11-28-2024 Note Pharmacy Managed Van comycin Dosing Service Progress Note Consult Date: 11/28/24 Patient Name: José Manuel Ashton Allergies: Penicillins Age: 63 y.o. Sex: male Ht: Height: 177.8 cm (5' 10") TBW: Weight: 120 kg (265 lb 8 oz) BMI: Body mass index is 38.1 kg/m?. 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 11/28/24 PreHD level = 26.5 mcg/mL No dose today. Will recheck preHD level if plan is for HD tomorrow. Will adjust dose/frequency if needed according to level. Thank you for this consult. Please page/call with questions. Date: 11/28/24 Time: 9:13 AM Leida Harris RPh (available on [employer]) [facility] 11-28-2024 Note Care Management Prog ress Note Short Medical why still here: persistent tremors/ shaking. Awaiting neuro consult. On IV vancomycin. Hemodialysis on Monday. Planned Discharge Disposition: Long Term Facility ([facility] but request precert) Barriers/Today we still Wait: Administering IV medications, Clinical stability, Symptomatic control, Machine Shop Inspector recommendations (comment) Length of Stay (Days): 3 GMLOS: 3.7 welfare manager to follow for discharge planning. [facility] 11-28-2024 Progress note Formatting of t his note might be different from the original. Care Management Progress Note Short Medical why still here: persistent tremors/ shaking. Awaiting neuro consult. On IV vancomycin. Hemodialysis on Monday. Planned Discharge Disposition: Long Term Facility ([facility] [place] but request precert) Barriers/Today we still Wait: Administering IV medications, Clinical stability, Symptomatic control, Machine Shop Inspector recommendations (comment) Length of Stay (Days): 3 GMLOS: 3.7 welfare manager to follow for discharge planning. 11-27-2024 Nurse Note Patient Name: José Manuel Ashton Patient : 1960 Acct: [id number] Date of Admission: 11/25/2024 [facility]: [facility] A Code Status: Full Code Allergies: Allergies[1] Diagnosis: Problem List[2] Treatment: Hemodialysis 1:1 Priority: Routine Location: Bedside Diabetic: Yes NPO: No Isolation Precautions: Dialysis Consent for Treatment Verified: Yes Blood Consent Verified: Not Applicable Time out performed prior to access at 1635. Report Received from Primary RN at 1545. Primary RN (First Initial, Last Name, Title): Sena Oreilly RN Incapacitated Nurse Education Completed: Yes HBsAg ONLY: Date Drawn: November 27, 2024 Results: Negative HBsAb: Date Drawn: November 28, 2024 Results: Susceptible <10 Order Dialyzer: Nipro Na+ Modeling: Not Applicable Dialysate Temperature (C): 36 Blood Flow Rate (BFR): 350 Dialysate Flow Rate (DFR): 600 Access to be Utilized Access: Tunneled Catheter Location: Subclavian Side: Right Needle gauge: Not Applicable + Bruit/Thrill: Not Applicable First Use X-ray Verified: Yes OK to use line order: Yes Site Assessment: Signs and Symptoms of Infection/Inflammation: Yes, see line below If yes: Redness Dressing: facility dressing Site Prep: Medical Aseptic Technique Dressing Changed this Treatment: Yes If yes, by whom: Katherin ZHANG Date of Last Dressing Change: November 27, [address]?: Yes Red Alcohol Caps in place?: Yes Gauze Dressing?: NA Non-Dialysis Use?: No Comment: Flows: Good If access problem, who was notified: Pre and Post-Assessment Patient Vitals for the past 8 hrs: Level of Consciousness Oriented X Heart Rhythm O2 Device Bilateral Breath Sounds Skin Color Skin Condition/Temp Edema Generalized Edema Pain Interventions 11/27/24 0900 -- -- -- -- Diminished -- -- Generalized Non-pitting -- 11/27/24 1212 -- -- -- -- -- -- -- -- -- Medication (See MAR) 11/27/24 1630 Alert (0) 4 Regular None (Room air) Diminished [address] Warm;Dry -- -- -- Labs Lab Results Component Value Date/Time WBC 5.0 11/27/2024 0339 HGB 8.5 (L) 11/27/2024 0339 HCT 26.7 (L) 11/27/2024 0339 PLT 216 11/27/2024 0339 NA 144 11/27/2024 0339 K 4.8 11/27/2024 0339 CL 106 11/27/2024 0339 CO2 27 11/27/2024 0339 BUN 67 (H) 11/27/2024 0339 CREATININE 6.86 (H) 11/27/2024 0339 CALCIUM 9.0 11/27/2024 0339 PHOS 2.9 10/01/2023 1115 IV Drips and Rate/Dose Continuous Meds[3] Safety - Before each treatment: Dialysis Machine No.: [id number] RO Machine Number: [id number] Dialyzer Lot No.: [id number] Tubing Lot Number: [id number] All Connections Secure: Yes Venous Parameters Set: Yes Arterial Parameters Set: Yes NS Bag: Yes Saline Line Double Clamped: Yes Dialyzer: Nipro Prime Volume (mL): 200 mL [employer] Machine Number: [id number] RO Machine Log Sheet Completed: Yes Conductivity Meter Serial #: [id number] Machine Functioning Alarm Free? Yes Dialysis Bath: Chlorine Testing - Before each treatment and every 4 hours: Weight Height: 177.8 cm (5' 10") (11/26/24 1501) Weight: 113 kg (250 lb) (11/26/24 1501) BMI (Calculated): 35.87 (11/26/24 1501) 1st check: less than 0.1 ppm at: 1625 2nd check: less than 0.1 ppm at: 1835 3rd check: Not Applicable (if greater than 0.1 ppm, then check every 30 minutes from secondary) Access Flows and Pressures Patient Vitals for the past 8 hrs: Blood Flow Rate (mL/min) Ultrafiltration Rate (ml/hr) Arterial Pressure (mmHg) Venous Pressure (mmHg) TMP DFR Access Visible Intra-Hemodialysis Comments 11/27/24 1640 200 mL/min 830 ml/hr -40 mmHg 40 mmHg 110 600 Yes tx started, lines secured, Primary RN at door. 11/27/24 1645 350 mL/min 830 ml/hr -110 mmHg 110 mmHg 120 600 Yes BFR increased, Uf removed 113 Vital Signs Patient Vitals for the past 24 hrs: BP Temp Temp src Pulse Resp SpO2 11/27/24 1645 136/65 -- -- 80 -- -- 11/27/24 1640 145/74 -- -- 82 -- -- 11/27/24 1630 129/63 36 C (96.8 F) -- 81 16 96 % 11/27/24 0809 150/88 (!) 35.9 C (96.7 F) Temporal 90 18 96 % 11/27/24 0728 -- -- -- 90 -- -- 11/26/242007 147/67 37.1 C (98.7 F) Temporal 95 20 93 % 11/26/24 1700 -- -- -- -- -- 92 % Post-Dialysis Arterial Catheter Locking Solution: Heparin (1000units:1ml) Volume (ml): 1.8 Venous Catheter Locking Solution: Heparin (1000units:1ml) Volume (ml): 1.9 Charge: Provider Notification Handoff complete and report given to Primary RN at 1954. Primary RN (First Initial, Last Name, Title): Sena Hammonds Person Educated: Patient Knowledge Base: Minimal Barriers to Learning?: None Preferred method of Learning: Oral Topic(s): Access Care, Signs and Symptoms of Infection, Procedural, Potassium, and Diet Teaching Tools: Explanation Response to Education: Requires Follow-up [1] Allergies Allergen Reactions Penicillins Unknown Pt states he thinks he had a reaction as a child [2] Patient Active Problem List Diagnosis Chills [3] T 11-27-2024 Note Referral placed to r eturn back to [facility] via [facility] per TCC request. Await review and response regarding ability to accept. TCC notified. [facility] 11-27-2024 Progress note Formatting of t his note might be different from the original. Referral placed to return back to [facility] via [facility] per TCC request. Await review and response regarding ability to accept. TCC notified. [facility] 11-27-2024 Progress note Formatting of t his note might be different from the original. Care Managment Initial Assessment Date: 11/27/2024 Patient Name: José Manuel Ashton : 1960 Patient Information Source of Information: Patient Cognition/Language: WFL - Within Functional Limits Permission given to speak with patient wholesale representative/caregiver as indicated: Confirmation of Payer with patient/family: Yes Payer Name: UNITED [employer] MEDICARE/[facility] DUAL COMPLETE [place]: No Confirmation of Primary Care Physician: Primary Caregiver: If assistance needed, confirmed caregiver ready, willing and able to care for patient at discharge: Confirmed with: Living Arrangements Current Residence: Number of Floors Number of Entry Steps: Bed/Bath Levels: Facility: Nursing Facility Skilled Facility Name: [facility] Plan to Return: Yes Lives with: Alone Support Systems: Family members Activities of Daily Living Ambulation: Assistance Bathing/Dressing: Assistance Elimination/Continence/Toileting: Assistance Feeding: Assistance Who Assists with Activities of Daily Living: Instrumental Activities of Daily Living Prescription Coverage: Yes Pharmacy Used: Medication Management: Transportation/Shopping: Assistance Provider Transportation Mode: Payer provided transport service Needs Assistance with Transportation at Discharge: Yes Meal Preparation: Assistance Provider Meal Prep Assistance Provider Name: facility Laundry/Cleaning: Assistance Provider Laundry/Cleaning Assistance Provider Name: facility Finances/Bill Paying: Assistance Provider Finances/Bill Payer Assistance Provider Name: facility Communication: Independent Types of Care Services/Equipment Utilized Care Services: Dialysis Type: Hemo Dialysis Provider Name/Location: [facility] M-F Durable Medical Equipment: Wheelchair (standard or power), Cane Patient's Goal/Discharge Plan Patient expects to be discharged to: [facility] Discharge Planning Actions: Continue to follow, Long Term Facility referral indicated Patient's Choice Rights and [employer] and Collaborative Relationships Disclosed as Indicated for Post-Acute Care: NA Interdisciplinary Team Engagement: Social Work Referral for: Additional Information: Spoke with patient at their bedside. Introduced self and role. Discussed discharge planning. Patient has health insurance and prescription coverage. Patient states he lives at [facility] and plans to return. Tasked [employer] to send referral in [facility]. Will await response. He receives hemodialysis there Monday through Monday. He will need ambulance transport with cot upon discharge. manager paper will continue to follow for any discharge planning needs. 2:46 PM UPDATE: Patient is a bedhold at [facility]. They would like to skill him for his return but he may return regardless when medically ready. They are submitting precert today. 11-27-2024 Note Pharmacy Managed Van comycin Dosing Service Progress Note Consult Date: 11/27/24 Patient Name: José Manuel Ashton Allergies: Penicillins Age: 63 y.o. Sex: male Ht: Height: 177.8 cm (5' 10") TBW: Weight: 113 kg (250 lb) BMI: Body mass index is 35.87 kg/m?. 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 11/27/24 PreHD level drawn at 1300 = 21.8 mcg/mL Give Vancomycin 750 mg once based on patient age, weight, renal status and infectious diagnosis (~10 mg/kg). Will adjust dose/frequency if needed according to level. Follow renal status closely. Orders placed. Thank you for this consult. Please page/call with questions. Date: 11/27/24 Time: 1:51 PM Leida Harris RPh (available on [employer]) [facility] 11-27-2024 Note Hospitalist Progress Note 11/27/2024 Subjective: Admit Date: 11/25/2024 PCP: Brittaney Garcia MD Room#: B4-178/B4-292 A Interval History: Having arm twitching and numbness bilaterally. He says he has been dropping things. Awaiting HD. Tolerating diet. No cp, sob, cough, n/v, f/c. Case and plan discussed with patient. All questions answered. Adult diet Regular; 5 carb choices (75 gm/meal) 24HR INTAKE/OUTPUT: Intake/Output Summary (Last 24 hours) at 11/27/2024 1244 Last data filed at 11/26/2024 2336 Gross per 24 hour Intake 400 ml Output 1500 ml Net -1100 ml Past Medical History: Medical History[1] LABS: CBC: Recent Labs 11/25/24 1252 11/27/24 0339 WBC 6.9 5.0 RBC 3.15* 2.93* HGB 9.2* 8.5* HCT 28.8* 26.7* MCV 91.4 91.1 RDW 13.0 12.6 PLT 220 216 BMP: Recent Labs 11/25/24 1252 11/26/24 0457 11/27/24 0339 NA 139 140 144 K 4.4 4.4 4.8 CL 99 105 106 CO2 BUN 49* 56* 67* CREATININE 5.14* 5.70* 6.86* GLUCOSE 178* 123* 161* CALCIUM 9.1 9.0 9.0 ANIONGAP 15* 11 11 LIVER PROFILE: Recent Labs 11/25/24 1252 11/26/247 11/27/24 0339 AST 19 21 17 ALT 17 14 16 BILITOT 0.5 0.4 0.4 ALKPHOS 100 95 94 PROT 6.9 6.4 6.2* PT/INR: No results for input(s): "PROTIME", "INR" in the last 72 hours. CARDIAC ENZYMES: No results for input(s): "TROPONINI" in the last 72 hours. Procalcitonin: Lab Results Component Value Date PROCAL 0.30 (H) 11/26/2024 COVID-19 PCR: No results for input(s): "COVID19" in the last 72 hours. Objective: Vitals: BP 150/88 (BP Location: Right arm, Patient Position: Sitting) Pulse 90 Temp (!) 35.9 ?C (96.7 ?F) (Temporal) Resp 18 Ht 5' 10" (1.778 m) Wt 250 lb (113 kg) SpO2 96% BMI 35.87 kg/m? Pulse Ox: SpO2 Av.5 % Min: 92 % Max: 99 % Supplemental O2: O2 Flow Rate (L/min): 2 L/min Physical Exam Vitals and nursing note reviewed. Constitutional: General: He is not in acute distress. Appearance: He is obese. He is ill-appearing. HENT: Head: Normocephalic and atraumatic. Eyes: Extraocular Movements: Extraocular movements intact. Pupils: Pupils are equal, round, and reactive to light. Cardiovascular: Rate and Rhythm: Normal rate and regular rhythm. Pulses: Normal pulses. Heart sounds: Murmur heard. Pulmonary: Effort: Pulmonary effort is normal. Comments: Coarse breath sounds bilaterally Abdominal: General: Bowel sounds are normal. There is no distension. Palpations: Abdomen is soft. Tenderness: There is no abdominal tenderness. Musculoskeletal: General: Normal range of motion. Cervical back: Neck supple. Skin: General: Skin is dry. Capillary Refill: Capillary refill takes less than 2 seconds. Neurological: General: No focal deficit present. Mental Status: He is alert and oriented to person, place, and time. Mental status is at baseline. Psychiatric: Mood and Affect: Mood normal. Medications: Scheduled PRN Scheduled Meds[2] PRN Meds[3] Continuous Continuous Meds[4] Assessment Lethargy and chills Myoclonic jerks and twitching Rule out infection HTN DM2 ESRD Anemia Hyperlipidemia Depression Class 3 obesity Plan Continue to monitor on telemetry, continue IV antibiotics, follow up cultures, will ask Neurology to see, continue to check POCT, SS insulin, Endocrinology and Nephrology following, HD, PT/OT, follow up labs, discharge planning, see orders. - am labs, replace lytes prn - PT/OT/CM/SW - delirium precautions: increase activity - DVT prophylaxis: heparin and encourage ambulation Advance Directive: Full Code Anticipated Discharge - Date - 11/29-11/30 - Location - Skilled Facility - Pending the following - clinical improvement, antibiotic finalization and when OK with Nephrology Total time spent (which include face to face and non face to face encounters) : 44 minutes Toxic drug monitoring/narrow therapeutic index drug monitoring : # Drug name : vancomycin, SS insulin and heparin # Route administered : IV and subcutaneous and subcutaneous # Method of monitoring : blood levels/daily BMP and ac/hs blood glucose/daily BMP/hypoglycemia protocol and daily CBC Extended Emergency Contact Information Primary Emergency Contact: Janell Waldrop Mobile Relation: Sister Preferred language: Bahraini Fisher [employer] Net needed? 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 [facility] 11-27-2024 Progress note Formatting of t his note might be different from the original. SW call to [facility] Home coverage line. Per [facility] coverage line, he was denied Assisted Living due to [facility] care placement at [facility]. TCC notified. 11-27-2024 Note Care Management Prog ress Note Short Medical why still here: admitted for chills, received one dose of vancomycin. Blood cultures pending. Monitoring renal labs. [facility] Nephrology and endocrinology following. Planned Discharge Disposition: Long Term Facility (patient came from [facility], anticipate return but will confirm with patient and facility) Barriers/Today we still Wait: Administering IV medications, Clinical stability, Symptomatic control, Machine Shop Inspector recommendations (comment) Length of Stay (Days): 2 GMLOS: No GMLOS Documented [facility] 11-27-2024 Progress note Formatting of t his note might be different from the original. Care Management Progress Note Short Medical why still here: admitted for chills, received one dose of vancomycin. Blood cultures pending. Monitoring renal labs. [facility]. Nephrology and endocrinology following. Planned Discharge Disposition: Long Term Facility (patient came from [facility], anticipate return but will confirm with patient and facility) Barriers/Today we still Wait: Administering IV medications, Clinical stability, Symptomatic control, Machine Shop Inspector recommendations (comment) Length of Stay (Days): 2 GMLOS: No GMLOS Documented T 11-26-2024 Consult note Associated Order (s): IP CONSULT TO NEPHROLOGY [facility] Nephrology Consultation Note Reason for consultation: ESRD and management of dialysis Chief Complaint: weakness, chills, lethargy History of Presenting Illness Patient is a 63 y.o. male with past medical history significant for HTN, ESRD, T2DM, HLD, Depression, and anemia, who presents with chief complaint listed above. He had been at his nursing facility and had increasing lethargy, weakness and chills. He is on HD M-F. Facility staff noticed he was "not acting like himself". CXR on admission was unremarkable, Nephrology is consulted for evaluation and management of ESRD and hemodialysis. Patient follows with Dr. Dudley at [facility]. He receives HD at his facility M-F to a DW of 115 kg. Last HD treatment was yesterday, 11/25. Patient's access is a TDC R IJ. No need for urgent dialysis and will plan for therapy tomorrow. Review of Systems All 12 systems have been reviewed and are negative except for what is mentioned in the HPI. Allergies Penicillins Family History Family History[1] Social History Social History[2] Medications Prescriptions Prior to Admission[3] Current Medications: Scheduled Meds[4] Continuous Infusions:Continuous Meds[5] PRN Meds:PRN Meds[6] Physical Exam Vitals: 11/26/24 0233 11/26/24 0858 11/26/24 1444 11/26/24 1501 BP: 104/66 137/56 154/73 BP Location: Right arm Right arm Patient Position: Lying Pulse: 81 82 90 Resp: 16 18 18 Temp: 36.5 C (97.7 F) 36.2 C (97.1 F) TempSrc: Oral Temporal SpO2: 100% 97% 99% Weight: 113 kg (250 lb) Height: 1.778 m (5' 10") 24 HR INTAKE/OUTPUT: Intake/Output Summary (Last 24 hours) at 11/26/2024 1615 Last data filed at 11/25/2024 1753 Gross per 24 hour Intake 500 ml Output -- Net 500 ml General: Ill appearing, cooperative to history and physical exam. Head: NCAT Eye: anicteric sclera Mouth: mucus membrane moist Neck: Supple Chest: B/L equal air entry, no crackles, no accessory muscles usage. CV: s1s2 heard Abdomen: NT, non distended, soft, + bs, No palpable masses Extremities: No peripheral edema, no cyanosis or clubbing Skin: Warm, no rash Neurological: A&O x 3, speech clear coherent Psychiatric: normal insight and judgement, good recall Access: TDC R IJ Data Recent Labs 11/25/24 1252 WBC 6.9 HGB 9.2* HCT 28.8* MCV 91.4 PLT 220 Recent Labs 11/25/24 1252 11/26/24 0457 NA 139 140 K 4.4 4.4 CL 99 105 CO2 25 24 GLUCOSE 178* 123* MG 2.0 -- BUN 49* 56* CREATININE 5.14* 5.70* Albumin: No components found for: LABALBU Calcium: Lab Results Component Value Date CALCIUM 9.0 11/26/2024 No results found for: "APPEARANCE", "COLORU", "LABSPEC", "LABPH", "URINE", "GLUCOSEU", "UROBILINOGEN", "BILIRUBINUR", OCBU Assessment 63 y.o. male with ESRD N18.6 HTN in CKD I12.9 Anemia in CKD D63.1 T2DM in CKD E11.22 Lethargy R53.83 Dependence on hemodialysis RECOMMENDATIONS: - Will plan for HD tomorrow. HD schedule -, last session was yesterday 11/25. I was able to get in contact with his dialysis nurse at [facility] and she confirmed his DW had recently been increased from 112.5 kg to 115 kg. Weight on admission was 113 kg - Strict I&Os - Daily weight - Continue with renal diet - ESRD hgb goal > 10 - Okay for prn transfusions for hgb < 7 - Avoid nephrotoxins and IV contrast dye - Dose all meds per GFR < 15 - Rest of management per primary team We will follow. Thank you for asking us to participate in the management of your patient, please do not hesitate to contact me for any concerns regarding my recommendations as outlined above. [facility] Office [1] No family history on file. [2] Social History Socioeconomic History Marital status: Single Social Drivers of Health Financial Resource Strain: Medium Risk (05/24/2023) Received from [facility] Overall Financial Resource Strain (CARDIA) Difficulty of Paying Living Expenses: Somewhat hard Food Insecurity: No Food Insecurity (11/26/2024) Hunger Vital Sign Worried About Running Out of Food in the Last Year: Never true Ran Out of Food in the Last Year: Never true Transportation Needs: No Transportation Needs (11/26/2024) PRAPARE - Transportation Lack of Transportation (Medical): No Lack of Transportation (Non-Medical): No Physical Activity: Insufficiently Active (12/28/2021) Received from [facility] Exercise Vital Sign Days of Exercise per Week: 7 days Minutes of Exercise per Session: 20 min Stress: Stress Concern Present (12/28/2021) Received from [facility] [place] [employer] - Occupational Stress Questionnaire Feeling of Stress : Very much Social Connections: Socially Isolated (12/28/2021) Received from [facility] Social Connection and Isolation Panel [NHANES] Frequency of Communication with Friends and Family: Once a week Frequency of Social Gatherings with Friends and Family: Never Attends Pentec[employer]al Services: Never Active Member of Clubs or Organizations: Yes Attends Club or Organization Meetings: Never Marital Status: Never Intimate Partner Violence: Not At Risk (11/26/2024) Humiliation, Afraid, Rape, and Kick questionnaire Fear of Current or Ex-Partner: No Emotionally Abused: No Physically Abused: No Sexually Abused: No Housing Stability: Low Risk (11/26/2024) Housing Stability Vital Sign Unable to Pay for Housing in the Last Year: No Number of Times Moved in the Last Year: 0 Homeless in the Last Year: No [3] Medications Prior to Admission Medication Sig Dispense Refill Last Dose/Taking acetaminophen (Tylenol) 325 MG tablet Take 325 mg by mouth every 6 hours as needed for fever, mild pain (1-3) or moderate pain (4-6). bisacodyl (Dulcolax) 10 MG suppository Insert 10 mg into the rectum Daily as needed for constipation. bisacodyl (Dulcolax) 5 MG EC tablet Take 5 mg by mouth Daily as needed for constipation. Do not crush, chew, or split. cyclobenzaprine (Flexeril) 10 MG tablet Take 5 mg by mouth 3 times daily as needed for muscle spasms. diazePAM (Valium) 10 MG tablet Take 10 mg by mouth every 8 hours as needed for muscle spasms. hydrALAZINE (Apresoline) 50 MG tablet Take 50 mg by mouth 2 times daily. oxyCODONE (Roxicodone) 5 MG immediate release tablet Take 10 mg by mouth every 6 hours as needed for severe pain (7-10). [4] amLODIPine, 5 mg, Oral, Daily heparin, 5,000 Units, SubCUTAneous, 2 times per day hydrALAZINE, 50 mg, Oral, BID insulin glargine, 10 Units, SubCUTAneous, Nightly insulin lispro, 0-6 Units, SubCUTAneous, TID WC insulin lispro, 3 Units, SubCUTAneous, TID WC oxyCODONE-acetaminophen, 1 tablet, Oral, Once vancomycin, 750 mg, IntraVENous, Once vancomycin (Vancocin) intermittent dosing (placeholder), , Other, See admin instructions [5] [6] PRN medications: acetaminophen OR acetaminophen, dextrose, dextrose, glucagon (rDNA), glucose, ipratropium-albuterol, naloxone, ondansetron ODT OR ondansetron, oxyCODONE, polyethylene glycol (PEG) 3350 Cosigned by Tosha Barriga MD at 11/26/2024 9:51 PM EDT Associated attestation - Tosha Barriga MD - 11/26/2024 9:51 PM EDT I have reviewed the above assessment and plan with the WILDLIFE CONSERVATIONIST. I agree with above note. HD tomorrow. Patient established with Dr Abiel Dudley outpatient. We cover his patients here. 11-26-2024 Note PHYSICAL THERAPY [facility] Initial Evaluation Name/MRN: José Manuel Ashton ([id number]) Evaluation Date: 11/26/2024 Date of : 1960 Admission Date: 11/25/2024 12:06 PM Age: 63 y.o. Room/Bed: B4-861/B4466 A Discharge Recommendation: Long Term Facility Equipment Needed: No Assessment IMPRESSION: Pt is a 63 y.o. male admitted 11/25 with weakness, chills, lethargy. Pt reports he has been at SNF for 1-2 months and required assist for stand pivot to w/c. Pt is currently requiring SBA to min A for bed mobility, mod A x1 for functional transfers, min A for lateral steps EOB. Pt is currently limited by endurance, fatigue and will benefit from acute skilled PT to address current deficits. Recommend SNF. Admitting Diagnosis: admitted 11/25 with weakness, chills, lethargy Prognosis: good Performance Deficits /Impairments: Increased Pain, Decreased Functional Mobility, Decreased Strength, Decreased Endurance, and Decreased Balance Decision Making: Medium Complexity Subjective Pt pleasant and agreeable to therapy session Per RN baljit for therapy Pain: 0-10 pain scale: 8/10 Location: B hands Past Medical History: Medical History[1] Past Surgical History: Surgical History[2] Admission Diagnosis: Patient Active Problem List Diagnosis Date Noted Chills 11/25/2024 Medical Precautions: Droplet Plus Proper PPE donned/doffed in accordance with facility standards. Fall Risk: Smith Fall Risk Score: 60 (High Risk) Precautions/Restrictions: skin care precautions Family/Caregiver Present: none Overall Cognitive Status: WFL Overall Orientation Status: Oriented x4 Vision: Not Assessed Hearing: normal Social/Functional History Patient admitted from SNF. Assistive Equipment: front wheeled walker, cane, and wheelchair - manual Prior Level of Function Prior Level of ADL Function: Required Assist Prior Level of Mobility: Required Assist; Device: Front wheeled walker and Wheelchair - manual Prior Level of Transfers: Required Assist Objective Lower Extremity Assessment AROM: WFL Strength: Exceptions: 2+/5 B knee extension, B hip flexion Balance: Balance During Session: Posture: fair Sitting - Static: SBA Sitting - Dynamic: SBA Standing - Static: Min Assist Standing - Dynamic: Min Assist Bed Mobility: Supine to sit: Min Assist Sit to supine: SBA Pt completes supine->sit requiring min A x1 to elevate trunk into upright sitting. Pt returns to supine at SBA with increased time and effort to complete. Cues provided throughout for sequencing. Transfers Sit to stand: Mod Assist Stand to sit: Mod Assist X1 unsuccessful stand from EOB at lowest height and max A x1. EOB elevated with pt able to stand with mod A x1 to elevate and assist in controlled descent. Cues provided for hand placement with fair carryover. Ambulation Lateral steps: Pt completes ~4 lateral steps EOB requiring min A x1 for weightshifting and FWW management. Cues provided for sequencing with fair carryover. Outcome Measures AM-PAC How much HELP from another person do you currently need Turning from your back to your side while in a flat bed without using bedrails?: A Little Moving from lying on your back to sitting on the side of a flat bed without using bedrails?: A Little Moving to and from a bed to a chair (including a wheelchair)?: A Lot Standing up from a chair using your arms (wheelchair or bedside chair)?: A Lot Walking in a hospital room?: Total Stair climbing assessed?: No AM-PAC Inpatient Mobility Raw Score (No Stairs) : 11 [facility] Score: Static standing (1 or more minutes) Plan Pt would benefit from skilled acute PT services to address Strengthening, Gait Training, Balance Training, Functional Mobility Training, Endurance Training, Safety Education and Training, Pain Management, Equipment Evaluation/Education, Patient/Caregiver Training, and Positioning. Frequency: 5 visitsduring current hospital admission or until additional recommendations are made Barriers: Pain, Impaired balance, Lower extremity weakness, and Decreased endurance Safety/Education Safety Safety Devices in place: All fall risk precautions in place, call light within reach, left in bed, gait belt, patient at risk for falls, nurse notified, and no alarms engaged upon entry Restraints: N/A Education Education Given To: patient Education Provided: PT Role, PT Goals, Plan of Care, Transfer Training, Energy Conservation, Equipment, Discharge Recommendations, and Benefits of Increasing Activity Education Method: Verbal and Demonstration Barriers to Learning: None Education Outcome: Verbalized Understanding, Demonstrated Understanding, and Continued Education Needed Goals Patient Stated Goal: pt did not state Encounter Problems Encounter Problems (Active) Exercise Patient will complete lower extremity exercises for 1-2 sets / 5-10 reps in order to improve stren (more content not included)... [facility] 11-26-2024 Note Pharmacy Managed Van comycin Dosing Service Progress Note Consult Date: 11/26/24 Patient Name: José Manuel Ashton Allergies: Penicillins Age: 63 y.o. Sex: male Ht: Height: 177.8 cm (5' 10") TBW: Weight: 113 kg (250 lb) BMI: Body mass index is 35.87 kg/m?. Lab Results Component Value Date CREATININE 5.70 (H) 11/26/2024 CREATININE 5.14 (H) 11/25/2024 BUN 56 (H) 11/26/2024 BUN 49 (H) 11/25/2024 WBC 6.9 11/25/2024 WBC 14.8 (H) 10/01/2023 Renal: [x]HD []CRRT []PD Infectious Diagnosis: Sepsis Antimicrobials: Patient recently received an antibiotic (last 12 hours) None Assessment/Plan: Intermittent vancomycin dosing (Pulse Dosing). No results found for: "VANCORANDOM" Change to Pulse dosing and give Vancomycin 750 mg x1 today based on patient age, weight, renal status and infectious diagnosis. Will adjust dose/frequency if needed according to level. (Will schedule next level once HD schedule known) Follow renal status closely. Orders placed. Thank you for this consult. Please page/call with questions. Date: 11/26/24 Time: 1:20 PM Prasanth Springer [facility] (available on [employer]) [facility] 11-26-2024 Note OCCUPATIONAL THERAPY [facility] Initial Evaluation Name/MRN: José Manuel Ashton ([id number]) Evaluation Date: 11/26/2024 Date of : 1960 Admission Date: 11/25/2024 12:06 PM Age: 63 y.o. Room/Bed: Discharge Recommendation: Long Term Facility Equipment Needed: No Assessment IMPRESSION: Pt is 63 y.o. male admitted from SNF for rule out infection with chills, weakness, lethargy. Prior to admission, pt required assist for ADLs, transfers, and functional mobility with FWW and w/c. Upon eval, pt requiring Mod-Max A for bed mobility, Min-Mod A for transfers, Mod A for pivot with FWW, Mod A for ADLs. Pt is limited my weakness, pain, endurance, balance, tremor/spasms and will benefit from skilled acute OT services to increase safety and independence during ADLs and functional mobility. Recommend return to SNF at [place] with OT. Admitting Diagnosis: chills Performance Deficits /Impairments: Increased Pain, Decreased Functional Mobility, Decreased ADL status, Decreased Strength, Decreased Endurance, Decreased Balance, Decreased High Level IADLs, Decreased Fine Motor Control, Decreased Coordination, and Decreased Posture Prognosis: Fair Decision Making: Medium Complexity Subjective Pt pleasant and cooperative, agreeable to OT evaluation. Pain: 0-10 pain scale: 8/10 Location: bilateral UE, RUE from hand through shoulder, LUE in hand and wrist Past Medical History: Medical History[1] Past Surgical History: Surgical History[2] Admission Diagnosis: Patient Active Problem List Diagnosis Date Noted Chills 11/25/2024 Medical Precautions: Droplet Plus Proper PPE donned/doffed in accordance with facility standards. Fall Risk: Smith Fall Risk Score: 60 (High Risk) Precautions/Restrictions: skin care precautions Family/Caregiver Present: none Overall Cognitive Status: WFL Overall Orientation Status: Oriented x4 Social/Functional History Patient admitted from SNF. Assistive Equipment: front wheeled walker, cane, and wheelchair - manual Prior Level of Function Prior Level of ADL Function: Required Assist Prior Level of Mobility: Required Assist; Device: Front wheeled walker and Wheelchair - manual Prior Level of Transfers: Required Assist Objective ADLs LE Dressing: Mod Assist Toileting: Mod Assist Pt requiring Mod A for LB dressing for managing clothing over hips in standing, requiring Min A for standing balance at FWW. Pt requiring Mod A for toileting at [facility] this date for clothing management, pt able to perform pericare in sitting without physical assist. Pt voided bladder at time of eval. Upper Extremity Assessment AROM: WFL PROM: WFL Strength: Exceptions: generalized BUE weakess No formal assessment complete, however AROM noted to be WFL during functional tasks this date. Generalized weakness noted during functional tasks at this time. Bed Mobility Supine to sit: Mod Assist Sit to supine: Max Assist Pt requiring Mod A for mobility to EOB for achieving upright sitting posture, pt able to manage BLE off bed without physical assist and with increased time and effort. Max A required for mobility to return to supine for BLE management. Transfers/Mobility Sit to stand: Min Assist, Mod Assist Stand to sit: Mod Assist Stand step: Mod Assist Bedside commode: Mod Assist Standing balance: Min Assist, Mod Assist Pt performing STS from EOB<>FWW with Min A this date. With FWW, pt performing stand step transfer from EOB to BSC with Mod A at this time for balance and controlled descent, requiring Mod A to stand from BSC to FWW with cues for hand placement. Device(s) used: Front wheeled walker AM-PAC AM-PAC Inpatient Daily Activity Raw Score: 15 ADL Inpatient CMS G-Code Modifier: CK Plan Pt would benefit from skilled acute OT services to address Strengthening, Balance Training, Self-Care/ADL Training, Functional Mobility Training, Endurance Training, Safety Education and Training, and Pain Management Frequency: 7 visits during current hospital admission or until additional recommendations are made Barriers: Pain, Impaired balance, Lower extremity weakness, Upper extremity weakness, and Decreased endurance Safety/Education Safety Safety Devices in place: All fall risk precautions in place, call light within reach, left in bed, gait belt, patient at risk for falls, nurse notified, and no alarms engaged upon entry Restraints: No Education Education Given To: patient Education Provided: OT Role, Plan of Care, ADL Adaptive Strategies, Transfer Training, Fall Prevention Education, Discharge Recommendations, and Benefits of Increasing Activity Education Method: Verbal, Demonstration, and Teach Back Barriers to Learning: None Education Outcome: Verbalized Understanding, Demonstrated Understanding, and Continued Education Needed Goals Patient Stated Goal: to get my pain under control Encounter Problems Encounter Prob (more content not included)... [facility] 11-26-2024 Note Hospitalist Progress Note 11/26/2024 Subjective: Admit Date: 11/25/2024 PCP: Brittaney Garcia MD Room#: 30/30 Interval History: Weak. Tolerating diet. No cp, sob, cough, n/v, f/c. Case and plan discussed with patient. All questions answered. Adult diet Regular; 5 carb choices (75 gm/meal) 24HR INTAKE/OUTPUT: Intake/Output Summary (Last 24 hours) at 11/26/2024 1207 Last data filed at 11/25/2024 1753 Gross per 24 hour Intake 500 ml Output -- Net 500 ml Past Medical History: Medical History[1] LABS: CBC: Recent Labs 11/25/24 1252 WBC 6.9 RBC 3.15* HGB 9.2* HCT 28.8* MCV 91.4 RDW 13.0 PLT 220 BMP: Recent Labs 11/25/24 1252 11/26/24 0457 NA 139 140 K 4.4 4.4 CL 99 105 CO2 25 24 BUN 49* 56* CREATININE 5.14* 5.70* GLUCOSE 178* 123* CALCIUM 9.1 9.0 ANIONGAP 15* 11 LIVER PROFILE: Recent Labs 11/25/24 1252 11/26/24 0457 AST 19 21 ALT 17 14 BILITOT 0.5 0.4 ALKPHOS 100 95 PROT 6.9 6.4 PT/INR: No results for input(s): "PROTIME", "INR" in the last 72 hours. CARDIAC ENZYMES: No results for input(s): "TROPONINI" in the last 72 hours. Procalcitonin: Lab Results Component Value Date PROCAL 0.30 (H) 11/26/2024 COVID-19 PCR: No results for input(s): "COVID19" in the last 72 hours. Objective: Vitals: BP 137/56 (BP Location: Right arm) Pulse 82 Temp 36.5 ?C (97.7 ?F) (Oral) Resp 18 Ht 5' 10" (1.778 m) Wt 250 lb (113 kg) SpO2 97% BMI 35.87 kg/m? Pulse Ox: SpO2 Av % Min: 95 % Max: 100 % Supplemental O2: O2 Flow Rate (L/min): 4 L/min Physical Exam Vitals and nursing note reviewed. Constitutional: General: He is not in acute distress. Appearance: He is obese. He is ill-appearing. HENT: Head: Normocephalic. Eyes: Conjunctiva/sclera: Conjunctivae normal. Pupils: Pupils are equal, round, and reactive to light. Cardiovascular: Rate and Rhythm: Normal rate and regular rhythm. Pulses: Normal pulses. Heart sounds: Murmur heard. Pulmonary: Effort: Pulmonary effort is normal. Breath sounds: Rhonchi and rales present. Abdominal: General: Bowel sounds are normal. There is no distension. Palpations: Abdomen is soft. Tenderness: There is no abdominal tenderness. Musculoskeletal: General: Normal range of motion. Cervical back: Normal range of motion. Skin: General: Skin is dry. Capillary Refill: Capillary refill takes less than 2 seconds. Neurological: General: No focal deficit present. Mental Status: He is alert and oriented to person, place, and time. Mental status is at baseline. Psychiatric: Mood and Affect: Mood normal. Medications: Scheduled PRN Scheduled Meds[2] PRN Meds[3] Continuous Continuous Meds[4] Assessment Lethargy and chills Rule out infection HTN DM2 ESRD Anemia Hyperlipidemia Depression Class 3 obesity Plan Continue to monitor on telemetry, continue IV antibiotics, follow up cultures- get one off TDC line (ordered), check POCT, SS insulin, Endocrinology and Nephrology following, HD tomorrow, PT/OT, follow up labs, discharge planning, see orders. - am labs, replace lytes prn - PT/OT/CM/SW - delirium precautions: increase activity - DVT prophylaxis: heparin and encourage ambulation Advance Directive: Full Code Anticipated Discharge - Date - 11/28-11/30 - Location - Skilled Facility - Pending the following - clinical improvement, antibiotic finalization and when OK with Nephrology Total time spent (which include face to face and non face to face encounters) : 45 minutes Toxic drug monitoring/narrow therapeutic index drug monitoring : # Drug name : vancomycin, SS insulin and heparin # Route administered : IV and subcutaneous and subcutaneous # Method of monitoring : blood levels/daily BMP and ac/hs blood glucose/daily BMP/hypoglycemia protocol and daily CBC Extended Emergency Contact Information Primary Emergency Contact: Janell Waldrop Mobile Relation: Sister Preferred language: Bahraini [employer] needed? 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 Chronic kidney disease (CKD) Cognitive communication deficit Depression Difficulty walking Dizziness Hyperkalemia Hyperlipemia Hyperosmolality and hypernatremia Hypertension Malignant neoplasm of rectum (HCC) Muscle weakness Need for assistance with personal care Other specified polyneuropathies Other symbolic dysfunctions Radiculopathy, lumbar region Spinal stenosis Type 2 diabetes mellitus (HCC) Vitamin D deficiency [2] amLODIPine, 5 mg, Oral, Daily heparin, 5,000 Units, SubCUTAneous, 2 times per day hydrALAZINE, 50 mg, Oral, BID insulin lispro, 0-12 Units, SubCUTAneous, TID WC And insulin lispro, 0-12 Units, SubCUTAneous, Nightly oxyCODONE-acetaminophen, 1 tablet, Oral, Once vancomycin (Vancoci (more content not included)... [facility] 11-26-2024 Consult note Associated Order (s): IP CONSULT TO ENDOCRINOLOGY Department of Internal Medicine Division of Endocrinology, Diabetes, & Metabolism Endocrinology Note Patient Name: José Manuel Ashton : 1960 AGE: 63 y.o. Room/Bed: Admission Date: 11/25/2024 Visit Date: 11/26/2024 Reason for Endocrine Consult: DM/Pt on U300 insulin Provider/Team Requesting Consult: Dr. Hills PCP: Brittaney Garcia MD Outpt [place] [employer]: Yes [facility] ASSESSMENT: Type 2 diabetes mellitus with hyperglycemia, with chcf insulin use PLAN: Start Lantus 10 units nightly Start Humalog 3 units TID with meals Decrease humalog sliding scale to Low dose TID with meals. ICU goal <180 GMF goal <150 POCT BG ACHS Hypoglycemia management per protocol Carb controlled diet ANTICIPATED ENDOCRINE HOME GOING RECOMMENDATIONS: Optimized for Discharge from Endocrine standpoint: No Home Going Endocrine Rx Recommendations-- Toujeo 18 units daily Humalog 8 units TID AC plus medium dose sliding scale Outpt Follow Up-- [facility] Endocrinology SUBJECTIVE/HPI: CHIEF COMPLAINT: Chief Complaint Patient presents with Altered Mental Status Pt presents to ED via EMS from [facility] for responding slowly and indicates he is cold. José Manuel Ashton is a 63 yo male who presented to ED from [facility] center with Tremor, chills and delayed response. Patient has baseline cognitive limitations but is able to answer questions. PMH: ESRD on dialysis, DM Type of DM: 2 Onset of DM: Before 2020 Home DM Medication Regimen: Toujeo 18 units daily Humalog 8 units TID AC plus medium dose sliding scale DM control (last A1c/glucose data): Lab Results Component Value Date HGBA1C 5.5 11/26/2024 Interval history: Patient alert sitting up in bed Patient reports he resides at [facility] Patient not sure of insulin doses at [facility] - Does not give his own injections. Reports blood sugars are checked before meals but not sure what blood sugar levels are. Carb controlled diet Patient reports tremors, chills Feels unsteady on feet. PT was stopped at [facility] per patient. Glucose Date/Time Value Ref Range Status 11/25/2024 10:17 PM 187 (H) 70 - 100 mg/dL Final 11/25/2024 08:46 PM 167 (H) 70 - 100 mg/dL Final 11/25/2024 06:45 PM 119 (H) 70 - 100 mg/dL Final Previously used medications: Metformin Lantus Actos Trulicity Ozempic Review of Systems Constitutional: Positive for chills. Respiratory: Negative for shortness of breath. Cardiovascular: Negative for chest pain and palpitations. Neurological: Positive for tremors. ROS negative except for those mentioned in HPI. OBJECTIVE: Vitals: 11/25/24 1804 11/25/24 2047 11/25/24 2219 11/26/24 0233 BP: 132/62 (!) 99/47 119/51 104/66 BP Location: Left arm Left arm Patient Position: Lying Lying Pulse: 80 85 83 81 Resp: 18 16 18 16 Temp: TempSrc: SpO2: 100% 95% 100% 100% Weight: Height: Physical Exam Vitals and nursing note reviewed. Constitutional: General: He is not in acute distress. Appearance: He is not toxic-appearing or diaphoretic. HENT: Head: Normocephalic. Nose: Nose normal. Mouth/Throat: Mouth: Mucous membranes are moist. Eyes: Conjunctiva/sclera: Conjunctivae normal. Cardiovascular: Rate and Rhythm: Normal rate and regular rhythm. Pulses: Normal pulses. Heart sounds: Normal heart sounds. Pulmonary: Effort: Pulmonary effort is normal. Musculoskeletal: Right lower leg: No edema. Left lower leg: No edema. Skin: General: Skin is warm. Neurological: Mental Status: He is alert. Psychiatric: Mood and Affect: Mood normal. Behavior: Behavior normal. 24 hour intake/output: Intake/Output Summary (Last 24 hours) at 11/26/2024 0823 Last data filed at 11/25/2024 1753 Gross per 24 hour Intake 500 ml Output -- Net 500 ml Diet: Adult diet Regular; 5 carb choices (75 gm/meal) Medications (as per EMR): HomeMeds: Current Outpatient Medications Medication Instructions acetaminophen (TYLENOL) 325 mg, Oral, Every 6 hours PRN bisacodyl (DULCOLAX) 5 mg, Oral, Daily PRN, Do not crush, chew, or split. bisacodyl (DULCOLAX) 10 mg, Rectal, Daily PRN hydrALAZINE (APRESOLINE) 50 mg, Oral, 2 times daily Scheduled Meds:Scheduled Meds[1] Continuous Infusions:Continuous Meds[2] PRN Meds:PRN Meds[3] Diagnostic Workup: I reviewed pertinent Laboratory results, Radiographic results, and Other Clinical Notes at the time of today's encounter. Labs: No components found for: "LABA1C" No components found for: "EAG" Lab Results Component Value Date NA 140 11/26/2024 K 4.4 11/26/2024 CL 105 11/26/2024 CO2 24 11/26/2024 BUN 56 (H) 11/26/2024 CREATININE 5.70 (H) 11/26/2024 GLUCOSE 123 (H) 11/26/2024 CALCIUM 9.0 11/26/2024 No results found for: "CHLPL", CHOL No results found for: "TRIG" No results found for: "HDL" No results found for: "LDLCALC" No results found for: "VLDL" No results found for: CHOLHDLRATIO No results found for: "DYIA27XBO" No results found for: "TSH", "O0HPPEF", "P8AZYMK", "THYROIDAB" Radiology reportsas per the Radiologist Radiology: POCT glucose meter Result Date: 11/25/2024 Performed by: Felicita Daly, [address] [place] [id number] CLIA ID: [id number] POCT glucose meter Result Date: 11/25/2024 Performed by: Felicita Daly [address] [place] [id number] CLIA ID: [id number] POCT glucose meter Result Date: 11/25/2024 Performed by: Felicita Daly, [address] [place] [id number] CLIA ID: [id number] ECG 12 lead Sinus rhythm Low voltage, extremity leads EKG from interpretation shows normal sinus rhythm at a rate of 80 with normal axis. There is low voltage in extremity leads. There is an abnormal R wave progression versus old septal infarct. There is no acute ST elevation or ST depression. Intervals are within normal limits otherwise. There were no old EKGs available for comparison. Electronically Signed On 11-25-2024 14:52:25 EDT by Omid Adames XR chest 1 view Result Date: 11/25/2024 [facility] Name: [facility]EL ASHTON [facility] 1960 [id number] Exam Date/Time: 11/25/2024 12:25 Procedure: XR CHEST 1 VIEW Ordering Provider: ADAMES TARAS Reason For Exam: Muscle weakness (generalized) PORTABLE CHEST CLINICAL INDICATION: Muscle weakness (generalized) TECHNIQUE: Portable AP COMPARISON: None FINDINGS: Tunneled right IJ dialysis catheter tip terminates over the proximal right atrium. Calcified granuloma overlying the left upper lung zone. No focal consolidation or pulmonary edema. No pleural effusions or pneumothorax. The cardiac and mediastinal silhouettes are normal. The osseous structures are unremarkable. No focal consolidation or pulmonary edema. Report Dictated on Electronically Signed By: Kj Duran MD Electronically Signed Date/Time: 11/25/2024 12:40 PM EDT History/Other: Past Medical History: Medical History[4] Past Surgical History: Surgical History[5] Allergy(ies): Allergies[6] Family History: Family History[7] Social History: Social History[8] Portions of the information within this encounter were entered using an electronic dictation system. Best attempts were made to edit/proofread the information prior to note completion. Despite the review of information, some errors may remain. If there are questions related to the information contained within the note please contact the signing physician directly. I spent 75 minutes with the pt which involved coordination of care, medical evaluation, review of records, and/or counseling of the pt regarding his/her condition/disease state/prognosis on the date of this note. [1] amLODIPine, 5 mg, Oral, Daily heparin, 5,000 Units, SubCUTAneous, 2 times per day hydrALAZINE, 50 mg, Oral, BID insulin lispro, 0-12 Units, SubCUTAneous, TID WC And insulin lispro, 0-12 Units, SubCUTAneous, Nightly oxyCODONE-acetaminophen, 1 tablet, Oral, Once vancomycin (Vancocin) intermittent dosing (placeholder), , Other, See admin instructions [2] sodium chloride, 75 mL/hr, Last Rate: 75 mL/hr (11/26/24 0623) [3] PRN medications: acetaminophen OR acetaminophen, dextrose, dextrose, glucagon (rDNA), glucose, ipratropium-albuterol, naloxone, ondansetron ODT OR ondansetron, oxyCODONE, polyethylene glycol (PEG) 3350 [4] Past Medical History: Diagnosis Date Anemia 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 No pertinent surgical history. [6] Allergies Allergen Reactions Penicillins Unknown Pt states he thinks he had a reaction as a child [7] No family history on file. [8] Cosigned by Luc Hatch MD at 11/27/2024 11:51 AM EDT 11-25-2024 History and physical note Attending History and Physical Admit Date: 11/25/2024 PCP: Brittaney Garcia MD CHIEF COMPLAINT: weakness, chills, lethargy Reason for Admission: rule out infection History Obtained From: patient/chart HISTORY OF PRESENT ILLNESS: José Manuel is a 63 y.o. male with past medical history below who presents with chief complaint listed above. He has been at a facility and has had increasing lethargy, weakness and chills. He is on HD. He complains of arm pain. No cp, cough, n/v, f/c. He normally is admitted to [facility]. Will admit for further evaluation and management. Seen and examined in the ED. D/w pt Past Medical History: HTN, ESRD, DM2, Hyperlipidemia, Depression, anemia Past Surgical History: Reviewed Social History: Social History Socioeconomic History Marital status: Single Spouse name: Not on file Number of children: Not on file Years of education: Not on file Highest education level: Not on file Occupational History Not on file Tobacco Use Smoking status: Not on file Smokeless tobacco: Not on file Substance and Sexual Activity Alcohol use: Not on file Drug use: Not on file Sexual activity: Not on file Other Topics Concern Not on file Social History Narrative Not on file Social Drivers of Health Financial Resource Strain: Medium Risk (05/24/2023) Received from [facility] Overall Financial Resource Strain (CARDIA) Difficulty of Paying Living Expenses: Somewhat hard Food Insecurity: No Food Insecurity (07/11/2024) Received from [facility] Hunger Vital Sign Worried About Running Out of Food in the Last Year: Never true Ran Out of Food in the Last Year: Never true Transportation Needs: No Transportation Needs (07/11/2024) Received from [facility] PRAPARE - Transportation Lack of Transportation (Medical): No Lack of Transportation (Non-Medical): No Physical Activity: Insufficiently Active (12/28/2021) Received from [facility] Exercise Vital Sign Days of Exercise per Week: 7 days Minutes of Exercise per Session: 20 min Stress: Stress Concern Present (12/28/2021) Received from [facility] [employer] - Occupational Stress Questionnaire Feeling of Stress : Very much Social Connections: Socially Isolated (12/28/2021) Received from [facility] Social Connection and Isolation Panel [NHANES] Frequency of Communication with Friends and Family: Once a week Frequency of Social Gatherings with Friends and Family: Never Attends Pentecostal Services: Never Active Member of Clubs or Organizations: Yes Attends Club or Organization Meetings: Never Marital Status: Never Intimate Partner Violence: Not on file Housing Stability: Unknown (07/11/2024) Received from [facility] Housing Stability Vital Sign Unable to Pay for Housing in the Last Year: No Number of Times Moved in the Last Year: Not on file Homeless in the Last Year: No Family History: Family History[1] Medications Prior to Admission: Current Medications[2] Medications Reconciliation: Medication were reviewed and verified as accurate with patient. Allergies: Allergies[3] REVIEW OF SYSTEMS: 10 point ROS obtained, as per HPI, otherwise NEG Vitals: BP 136/70 (BP Location: Left arm, Patient Position: Lying) Pulse 86 Temp 36.4 C (97.5 F) (Oral) Resp 17 Ht 5' 10" (1.778 m) Wt 250 lb (113 kg) SpO2 96% BMI 35.87 kg/m BMI Classification: Obese (BMI 30.0-39.9) Pulse Ox: SpO2 Av % Min: 96 % Max: 96 % Supplemental O2: O2 Flow Rate (L/min): 5 L/min PHYSICAL EXAM: Physical Exam Vitals and nursing note reviewed. Constitutional: General: He is not in acute distress. Appearance: He is obese. He is ill-appearing. HENT: Head: Normocephalic and atraumatic. Mouth/Throat: Pharynx: Oropharynx is clear. Eyes: Extraocular Movements: Extraocular movements intact. Conjunctiva/sclera: Conjunctivae normal. Pupils: Pupils are equal, round, and reactive to light. Cardiovascular: Rate and Rhythm: Normal rate and regular rhythm. Pulses: Normal pulses. Heart sounds: Murmur heard. Pulmonary: Effort: Pulmonary effort is normal. Breath sounds: Rhonchi present. Abdominal: General: Bowel sounds are normal. There is no distension. Palpations: Abdomen is soft. Tenderness: There is abdominal tenderness. There is no rebound. Musculoskeletal: General: Normal range of motion. Cervical back: Neck supple. Right lower leg: Edema present. Left lower leg: Edema present. Skin: General: Skin is warm. Capillary Refill: Capillary refill takes less than 2 seconds. Neurological: General: No focal deficit present. Mental Status: He is alert and oriented to person, place, and time. Mental status is at baseline. Psychiatric: Mood and Affect: Mood normal. DATA: CBC: Recent Labs 11/25/24 1252 WBC 6.9 RBC 3.15* HGB 9.2* HCT 28.8* MCV 91.4 RDW 13.0 PLT 220 BMP: Recent Labs 11/25/24 1252 NA 139 K 4.4 CL 99 CO2 25 BUN 49* CREATININE 5.14* GLUCOSE 178* CALCIUM 9.1 ANIONGAP 15* LIVER PROFILE: Recent Labs 11/25/24 1252 AST 19 ALT 17 BILITOT 0.5 ALKPHOS 100 PROT 6.9 PT/INR: No results for input(s): "PROTIME", "INR" in the last 72 hours. CARDIAC ENZYMES: No results for input(s): "TROPONINI" in the last 72 hours. Procalcitonin: No results found for: "PROCAL" Urine Culture: No results found for this or any previous visit. COVID-19 PCR: No results for input(s): "COVID19" in the last 72 hours. I reviewed: [x] laboratory results [x] radiographic results At the time of today's encounter. Pt was advised of the results. Assessment Lethargy and chills Rule out infection HTN DM2 ESRD Anemia Hyperlipidemia Depression Class 3 obesity Plan I discussed management with the ED clinician and agree with the need for hospitalization, monitor on telemetry, IV antibiotics, follow up cultures, check ag's and PCR, POCT, SS insulin, Endocrinology and Nephrology evaluations, PT/OT, review home meds and continue as appropriate, follow up labs, discharge planning, see admission orders. - am labs, replace lytes prn - PT/OT/CM/SW - delirium precautions: increase activity - DVT prophylaxis: heparin and encourage ambulation Advance Directive: No Order Anticipated Discharge - Date - 11/27-11/29 - Location - Skilled Facility - Pending the following - clinical improvement, completion of work up and when OK with consultants Total time spent (which include face to face and non face to face encounters) : 64 minutes. Toxic drug monitoring/narrow therapeutic index drug monitoring : # Drug name : # Route administered : # Method of monitoring : Extended Emergency Contact Information Primary Emergency Contact: Janell Waldrop Mobile Relation: Sister Preferred language: [place] [employer] needed? No Flori Hills MD Division of Hospitalist Medicine Acute [facility] [1] No family history on file. [2] Current Facility-Administered Medications: oxyCODONE-acetaminophen (Percocet) 5-325 MG per tablet 1 tablet, 1 tablet, Oral, Once, Omid Adames MD vancomycin (Vancocin) 2500 mg in 0.9% sodium chloride 500 mL IVPB (compounded premix), 2,500 mg, IntraVENous, Once, Omid Adames MD, Last Rate: 166.7 mL/hr at 11/25/24 1439, 2,500 mg at 11/25/24 1439 [START ON 11/26/2024] vancomycin (Vancocin) 500 mg in sodium chloride 0.9 % 100 mL IVPB, 500 mg, IntraVENous, q24h, Omid Adames MD No current outpatient medications on file. [3] Allergies Allergen Reactions Penicillins 11-25-2024 Note Attending History an d Physical Admit Date: 11/25/2024 PCP: Brittaney Garcia MD CHIEF COMPLAINT: weakness, chills, lethargy Reason for Admission: rule out infection History Obtained From: patient/chart HISTORY OF PRESENT ILLNESS: José Manuel is a 63 y.o. male with past medical history below who presents with chief complaint listed above. He has been at a facility and has had increasing lethargy, weakness and chills. He is on HD. He complains of arm pain. No cp, cough, n/v, f/c. He normally is admitted to [facility]. Will admit for further evaluation and management. Seen and examined in the ED. D/w pt Past Medical History: HTN, ESRD, DM2, Hyperlipidemia, Depression, anemia Past Surgical History: Reviewed Social History: Social History Socioeconomic History Marital status: Single Spouse name: Not on file Number of children: Not on file Years of education: Not on file Highest education level: Not on file Occupational History Not on file Tobacco Use Smoking status: Not on file Smokeless tobacco: Not on file Substance and Sexual Activity Alcohol use: Not on file Drug use: Not on file Sexual activity: Not on file Other Topics Concern Not on file Social History Narrative Not on file Social Drivers of Health Financial Resource Strain: Medium Risk (05/24/2023) Received from [facility] Overall Financial Resource Strain (CARDIA) Difficulty of Paying Living Expenses: Somewhat hard Food Insecurity: No Food Insecurity (07/11/2024) Received from [facility] Hunger Vital Sign Worried About Running Out of Food in the Last Year: Never true Ran Out of Food in the Last Year: Never true Transportation Needs: No Transportation Needs (07/11/2024) Received from [facility] PRAPARE - Transportation Lack of Transportation (Medical): No Lack of Transportation (Non-Medical): No Physical Activity: Insufficiently Active (12/28/2021) Received from [facility] Exercise Vital Sign Days of Exercise per Week: 7 days Minutes of Exercise per Session: 20 min Stress: Stress Concern Present (12/28/2021) Received from [facility] [employer] - Occupational Stress Questionnaire Feeling of Stress : Very much Social Connections: Socially Isolated (12/28/2021) Received from [facility] Social Connection and Isolation Panel [NHANES] Frequency of Communication with Friends and Family: Once a week Frequency of Social Gatherings with Friends and Family: Never Attends Pentecostal Services: Never Active Member of Clubs or Organizations: Yes Attends Club or Organization Meetings: Never Marital Status: Never Intimate Partner Violence: Not on file Housing Stability: Unknown (07/11/2024) Received from [facility] Housing Stability Vital Sign Unable to Pay for Housing in the Last Year: No Number of Times Moved in the Last Year: Not on file Homeless in the Last Year: No Family History: Family History[1] Medications Prior to Admission: Current Medications[2] Medications Reconciliation: Medication were reviewed and verified as accurate with patient. Allergies: Allergies[3] REVIEW OF SYSTEMS: 10 point ROS obtained, as per HPI, otherwise NEG Vitals: BP 136/70 (BP Location: Left arm, Patient Position: Lying) Pulse 86 Temp 36.4 ?C (97.5 ?F) (Oral) Resp 17 Ht 5' 10" (1.778 m) Wt 250 lb (113 kg) SpO2 96% BMI 35.87 kg/m? BMI Classification: Obese (BMI 30.0-39.9) Pulse Ox: SpO2 Av % Min: 96 % Max: 96 % Supplemental O2: O2 Flow Rate (L/min): 5 L/min PHYSICAL EXAM: Physical Exam Vitals and nursing note reviewed. Constitutional: General: He is not in acute distress. Appearance: He is obese. He is ill-appearing. HENT: Head: Normocephalic and atraumatic. Mouth/Throat: Pharynx: Oropharynx is clear. Eyes: Extraocular Movements: Extraocular movements intact. Conjunctiva/sclera: Conjunctivae normal. Pupils: Pupils are equal, round, and reactive to light. Cardiovascular: Rate and Rhythm: Normal rate and regular rhythm. Pulses: Normal pulses. Heart sounds: Murmur heard. Pulmonary: Effort: Pulmonary effort is normal. Breath sounds: Rhonchi present. Abdominal: General: Bowel sounds are normal. There is no distension. Palpations: Abdomen is soft. Tenderness: There is abdominal tenderness. There is no rebound. Musculoskeletal: General: Normal range of motion. Cervical back: Neck supple. Right lower leg: Edema present. Left lower leg: Edema present. Skin: General: Skin is warm. Capillary Refill: Capillary refill takes less than 2 seconds. Neurological: General: No focal deficit present. Mental Status: He is alert and oriented to person, place, and time. Mental status is at baseline. Psychiatric: Mood and Affect: Mood normal. DATA: CBC: Recent Labs 11/25/24 1252 WBC 6.9 RBC 3.15* HGB 9.2* HCT 28.8* MCV 91.4 RDW 13.0 PLT 220 BMP: (more content not included)... [facility] 11-25-2024 History and physical note Attending History and Physical Admit Date: 11/25/2024 PCP: Brittaney Garcia MD CHIEF COMPLAINT: weakness, chills, lethargy Reason for Admission: rule out infection History Obtained From: patient/chart HISTORY OF PRESENT ILLNESS: José Maneul is a 63 y.o. male with past medical history below who presents with chief complaint listed above. He has been at a facility and has had increasing lethargy, weakness and chills. He is on HD. He complains of arm pain. No cp, cough, n/v, f/c. He normally is admitted to [facility]. Will admit for further evaluation and management. Seen and examined in the ED. D/w pt Past Medical History: HTN, ESRD, DM2, Hyperlipidemia, Depression, anemia Past Surgical History: Reviewed Social History: Social History Socioeconomic History Marital status: Single Spouse name: Not on file Number of children: Not on file Years of education: Not on file Highest education level: Not on file Occupational History Not on file Tobacco Use Smoking status: Not on file Smokeless tobacco: Not on file Substance and Sexual Activity Alcohol use: Not on file Drug use: Not on file Sexual activity: Not on file Other Topics Concern Not on file Social History Narrative Not on file Social Drivers of Health Financial Resource Strain: Medium Risk (05/24/2023) Received from [facility] Overall Financial Resource Strain (CARDIA) Difficulty of Paying Living Expenses: Somewhat hard Food Insecurity: No Food Insecurity (07/11/2024) Received from [facility] Hunger Vital Sign Worried About Running Out of Food in the Last Year: Never true Ran Out of Food in the Last Year: Never true Transportation Needs: No Transportation Needs (07/11/2024) Received from [facility] PRAPARE - Transportation Lack of Transportation (Medical): No Lack of Transportation (Non-Medical): No Physical Activity: Insufficiently Active (12/28/2021) Received from [facility] Exercise Vital Sign Days of Exercise per Week: 7 days Minutes of Exercise per Session: 20 min Stress: Stress Concern Present (12/28/2021) Received from [facility] [employer] - Occupational Stress Questionnaire Feeling of Stress : Very much Social Connections: Socially Isolated (12/28/2021) Received from [facility] Social Connection and Isolation Panel [NHANES] Frequency of Communication with Friends and Family: Once a week Frequency of Social Gatherings with Friends and Family: Never Attends Pentecostal Services: Never Active Member of Clubs or Organizations: Yes Attends Club or Organization Meetings: Never Marital Status: Never Intimate Partner Violence: Not on file Housing Stability: Unknown (07/11/2024) Received from [facility] Housing Stability Vital Sign Unable to Pay for Housing in the Last Year: No Number of Times Moved in the Last Year: Not on file Homeless in the Last Year: No Family History: Family History[1] Medications Prior to Admission: Current Medications[2] Medications Reconciliation: Medication were reviewed and verified as accurate with patient. Allergies: Allergies[3] REVIEW OF SYSTEMS: 10 point ROS obtained, as per HPI, otherwise NEG Vitals: BP 136/70 (BP Location: Left arm, Patient Position: Lying) Pulse 86 Temp 36.4 C (97.5 F) (Oral) Resp 17 Ht 5' 10" (1.778 m) Wt 250 lb (113 kg) SpO2 96% BMI 35.87 kg/m BMI Classification: Obese (BMI 30.0-39.9) Pulse Ox: SpO2 Av % Min: 96 % Max: 96 % Supplemental O2: O2 Flow Rate (L/min): 5 L/min PHYSICAL EXAM: Physical Exam Vitals and nursing note reviewed. Constitutional: General: He is not in acute distress. Appearance: He is obese. He is ill-appearing. HENT: Head: Normocephalic and atraumatic. Mouth/Throat: Pharynx: Oropharynx is clear. Eyes: Extraocular Movements: Extraocular movements intact. Conjunctiva/sclera: Conjunctivae normal. Pupils: Pupils are equal, round, and reactive to light. Cardiovascular: Rate and Rhythm: Normal rate and regular rhythm. Pulses: Normal pulses. Heart sounds: Murmur heard. Pulmonary: Effort: Pulmonary effort is normal. Breath sounds: Rhonchi present. Abdominal: General: Bowel sounds are normal. There is no distension. Palpations: Abdomen is soft. Tenderness: There is abdominal tenderness. There is no rebound. Musculoskeletal: General: Normal range of motion. Cervical back: Neck supple. Right lower leg: Edema present. Left lower leg: Edema present. Skin: General: Skin is warm. Capillary Refill: Capillary refill takes less than 2 seconds. Neurological: General: No focal deficit present. Mental Status: He is alert and oriented to person, place, and time. Mental status is at baseline. Psychiatric: Mood and Affect: Mood normal. DATA: CBC: Recent Labs 11/25/24 1252 WBC 6.9 RBC 3.15* HGB 9.2* HCT 28.8* MCV 91.4 RDW 13.0 PLT 220 BMP: Recent Labs 11/25/24 1252 NA 139 K 4.4 CL 99 CO2 25 BUN 49* CREATININE 5.14* GLUCOSE 178* CALCIUM 9.1 ANIONGAP 15* LIVER PROFILE: Recent Labs 11/25/24 1252 AST 19 ALT 17 BILITOT 0.5 ALKPHOS 100 PROT 6.9 PT/INR: No results for input(s): "PROTIME", "INR" in the last 72 hours. CARDIAC ENZYMES: No results for input(s): "TROPONINI" in the last 72 hours. Procalcitonin: No results found for: "PROCAL" Urine Culture: No results found for this or any previous visit. COVID-19 PCR: No results for input(s): "COVID19" in the last 72 hours. I reviewed: [x] laboratory results [x] radiographic results At the time of today's encounter. Pt was advised of the results. Assessment Lethargy and chills Rule out infection HTN DM2 ESRD Anemia Hyperlipidemia Depression Class 3 obesity Plan I discussed management with the ED clinician and agree with the need for hospitalization, monitor on telemetry, IV antibiotics, follow up cultures, check ag's and PCR, POCT, SS insulin, Endocrinology and Nephrology evaluations, PT/OT, review home meds and continue as appropriate, follow up labs, discharge planning, see admission orders. - am labs, replace lytes prn - PT/OT/CM/SW - delirium precautions: increase activity - DVT prophylaxis: heparin and encourage ambulation Advance Directive: No Order Anticipated Discharge - Date - 11/27-11/29 - Location - Skilled Facility - Pending the following - clinical improvement, completion of work up and when OK with consultants Total time spent (which include face to face and non face to face encounters) : 64 minutes. Toxic drug monitoring/narrow therapeutic index drug monitoring : # Drug name : # Route administered : # Method of monitoring : Extended Emergency Contact Information Primary Emergency Contact: BenjieJanell Mobile Relation: Sister Preferred language: [place]raini Fisher Hoop Net needed? No Flori Hills MD Division of Hospitalist Medicine [facility] [1] No family history on file. [2] Current Facility-Administered Medications: oxyCODONE-acetaminophen (Percocet) 5-325 MG per tablet 1 tablet, 1 tablet, Oral, Once, Omid Adames MD vancomycin (Vancocin) 2500 mg in 0.9% sodium chloride 500 mL IVPB (compounded premix), 2,500 mg, IntraVENous, Once, Omid Adames MD, Last Rate: 166.7 mL/hr at 11/25/24 1439, 2,500 mg at 11/25/24 1439 [START ON 11/26/2024] vancomycin (Vancocin) 500 mg in sodium chloride 0.9 % 100 mL IVPB, 500 mg, IntraVENous, q24h, Omid Adames MD No current outpatient medications on file. [3] Allergies Allergen Reactions Penicillins documented in this encounter 11-25-2024 Consult note Formatting of th is note is different from the original. Images from the original note were not included. Pharmacy Managed Vancomycin Dosing Service Consult Note Consult Date: 11/25/24 Patient Name: José Manuel Ashton Allergies: Penicillins Age: 63 y.o. Sex: male Estimated body mass index is 35.87 kg/m as calculated from the following: Height as of this encounter: 1.778 m (5' 10"). Weight as of this encounter: 113 kg (250 lb). Lab Results Component Value Date CREATININE 5.14 (H) 11/25/2024 CREATININE 1.69 (H) 10/01/2023 BUN 49 (H) 11/25/2024 BUN 33 (H) 10/01/2023 WBC 6.9 11/25/2024 WBC 14.8 (H) 10/01/2023 Renal: []HD []CRRT []PD [x] CrCl 22.9 ml/min (if TARYN, no MARKETING INTELLIGENCE MANAGER) Consulted By: Dr. Adames Vancomycin Level: []Trough [x]Random Infectious Diagnosis: Sepsis of unknown etiology (target level= mg/L) Antimicrobials: Patient recently received an antibiotic (last 12 hours) Date/Time Action Medication Dose Rate 11/25/24 1439 New Bag vancomycin (Vancocin) 2500 mg in 0.9% sodium chloride 500 mL IVPB (compounded premix) 2,500 mg 166.7 mL/hr Assessment/Plan: Intermittent vancomycin dosing (Pulse Dosing). Give Vancomycin 500 mg 24 based on patient age, weight, renal status and infectious diagnosis (4.4 mg/kg). Will adjust dose/frequency if needed according to level. Follow renal status closely. Orders placed. Thank you for this consult. Please page/call with questions. Date: 11/25/24 Time: 2:57 PM Analilia Solares PharmD (available on [employer]) 11-25-2024 Emergency department Note Pt refused pain meds, " not my dose at [facility]" per pt 11-25-2024 Emergency department Note Pt refused pain meds, " not my dose at [facility]" per pt EMERGENCY DEPARTMENT ENCOUNTER Pt Name: José Manuel Ashton Birthdate 1960 Date of evaluation: 11/25/2024 ED Provider: Omid Adames MD CHIEF COMPLAINT Chief Complaint Patient presents with Altered Mental Status Pt presents to ED via EMS from [facility] for responding slowly and indicates he is cold. HISTORY OF PRESENT ILLNESS (Location/Symptom, Timing/Onset, Context/Setting, Quality, Duration, Modifying Factors, Severity) Note limiting factors. I wore appropriate PPE for the entirety of this encounter. HPI José Manuel Ashton is a 63 y.o. who presents to the emergency department with chief complaint of tremors and chills. Patient came in by ambulance from dialysis center. Apparently he has not felt well all weekend. He has had shakes and chills although is unaware of any fever. He had his full dialysis treatment. The patient apparently has some baseline cognitive limitations, but he is able to answer questions. He denies any headaches or visual complaints. He is unaware of any fever. He denies any cough or URI symptoms. Denies any chest pain or trouble breathing. Denies any abdominal pain, vomiting or diarrhea. He does make some urine. No rash or bruising that is new. Denies any localizing numbness or weakness. No other acute complaints. He is not sure if he has felt like this before. He is unaware of any ill contacts. Nursing Notes were reviewed. Limitations to history: None Outside historians: None REVIEW OF SYSTEMS Review of Systems Constitutional: Positive for chills. Negative for fever. HENT: Negative. Negative for sore throat. Eyes: Negative for visual disturbance. Respiratory: Negative for cough and shortness of breath. Cardiovascular: Negative for chest pain. Gastrointestinal: Negative for abdominal pain, diarrhea and vomiting. Genitourinary: Negative for dysuria and frequency. Musculoskeletal: Negative for arthralgias and back pain. Skin: Negative for color change and rash. Neurological: Positive for tremors. Negative for syncope, weakness, numbness and headaches. All other systems reviewed and are negative. Pertinent positives and negatives as per HPI. PAST MEDICAL HISTORY Medical History[1] SURGICAL HISTORY Surgical History[2] CURRENT MEDICATIONS Previous Medications No medications on file ALLERGIES Penicillins FAMILY HISTORY Family History[3] SOCIAL HISTORY Social History[4] SCREENINGS PHYSICAL EXAM ED Triage Vitals Temp Heart Rate Resp BP 11/25/24 1211 11/25/24 1211 11/25/24 1211 11/25/24 1214 36.4 C (97.5 F) 80 18 131/54 SpO2 Temp Source Heart Rate Source Patient Position 11/25/24 1211 11/25/24 1211 11/25/24 1211 11/25/24 1211 96 % Oral Monitor Lying BP Location FiO2 (%) 11/25/24 1211 -- Left arm Physical Exam Vitals and nursing note reviewed. Constitutional: Appearance: Normal appearance. He is well-developed. He is not toxic-appearing. Comments: Patient appears slightly uncomfortable although nontoxic and in no severe distress. HENT: Head: Normocephalic and atraumatic. Right Ear: External ear normal. Left Ear: External ear normal. Nose: Nose normal. Mouth/Throat: Mouth: Mucous membranes are moist. Pharynx: Oropharynx is clear. Eyes: Extraocular Movements: Extraocular movements intact. Conjunctiva/sclera: Conjunctivae normal. Pupils: Pupils are equal, round, and reactive to light. Cardiovascular: Rate and Rhythm: Normal rate and regular rhythm. Heart sounds: Normal heart sounds. No murmur heard. Pulmonary: Effort: Pulmonary effort is normal. No respiratory distress. Breath sounds: Normal breath sounds. No wheezing, rhonchi or rales. Abdominal: Palpations: Abdomen is soft. Tenderness: There is no abdominal tenderness. There is no guarding or rebound. Musculoskeletal: General: No swelling or tenderness. Normal range of motion. Cervical back: Normal range of motion and neck supple. Skin: General: Skin is warm and dry. Neurological: General: No focal deficit present. Mental Status: He is alert and oriented to person, place, and time. GCS: GCS eye subscore is 4. GCS verbal subscore is 5. GCS motor subscore is 6. Cranial Nerves: Cranial nerves 2-12 are intact. Sensory: Sensation is intact. Motor: Motor function is intact. Coordination: Coordination is intact. Psychiatric: Mood and Affect: Mood normal. DIAGNOSTIC RESULTS Procedures/EKG: EKG per my interpretation shows a normal sinus rhythm at a rate of 80 with a normal axis. There is low voltage in extremity leads. There is a slow R wave progression versus old septal MD. There is no acute ST elevation or ST depression however. Intervals are within normal limits otherwise. There is no old EKG available for comparison. EKG was reviewed by myself. Physician EKG interpretation can be found in [facility] (Per Emergency Physician): Chest x-ray interpreted by me shows no obvious evidence of infiltrate or failure. Interpretation per the Radiologist below, if available at the time of this note: XR chest 1 view Final Result No focal consolidation or pulmonary edema. Report Dictated on Electronically Signed By: Kj Duran MD Electronically Signed Date/Time: 11/25/2024 12:40 PM EDT ED BEDSIDE ULTRASOUND: Performed by ED Physician - none LABS: Labs Reviewed COMPREHENSIVE METABOLIC PANEL - Abnormal Result Value SODIUM 139 POTASSIUM 4.4 CHLORIDE 99 CARBON DIOXIDE 25 ANION GAP 15 (*) UREA NITROGEN 49 (*) CREATININE 5.14 (*) GLUCOSE 178 (*) CALCIUM 9.1 AST (SGOT) 19 ALT 17 ALKALINE PHOSPHATASE 100 ALBUMIN 3.2 (*) BILIRUBIN, TOTAL 0.5 TOTAL PROTEIN 6.9 eGFR 11.8 (*) CBC WITH AUTO DIFFERENTIAL - Abnormal Auto WBC 6.9 RBC 3.15 (*) Hemoglobin 9.2 (*) Hematocrit 28.8 (*) MCV 91.4 MCH 29.2 MCHC 31.9 RDW 13.0 Platelets 220 MPV 9.2 nRBC 0.0 Neutrophils Relative 72.5 Lymphocytes Relative 15.0 Monocytes Relative 10.1 Eosinophils Relative 1.6 Basophils Relative 0.1 Immature Grans % 0.7 Neutrophils Absolute 5.0 Lymphocytes Absolute 1.0 Monocytes Absolute 0.7 Eosinophils Absolute 0.1 Basophils Absolute 0.0 Immature Grans Absolute 0.1 (*) LACTIC ACID WITH REFLEX - Abnormal LACTIC ACID 3.5 (*) SARS-COV-2, FLU A/B, AND RSV COMBO - Normal SARS-CoV-2 Not Detected Respiratory Syncytial Virus Not Detected Influenza A Not Detected Influenza B Not Detected Narrative: Methodology: real-time, RT-PCR The SARS-CoV-2, Flu A/B, and RSV Combo assay is intended for in vitro diagnostic use under the FDA Emergency Use Authorization (EUA). This test has not been FDA cleared or approved. In compliance with this authorization, please visit www.fda.gov/media/856872/download or www.fda.gov/media/218235/download to access the applicable information sheets. MAGNESIUM - Normal MAGNESIUM 2.0 Narrative: Higher values can be expected in females during menses. BLOOD CULTURE BLOOD CULTURE COMPLETE URINALYSIS WITH REFLEX TO CULTURE LACTIC ACID WITH REFLEX All other labs were within normal range or not returned as of this dictation. EMERGENCY DEPARTMENT COURSE and DIFFERENTIAL DIAGNOSIS/MDM: Vitals: Vitals: 11/25/24 1211 11/25/24 1214 BP: 131/54 Pulse: 80 Resp: 18 Temp: 36.4 C (97.5 F) TempSrc: Oral SpO2: 96% Weight: 113 kg (250 lb) Height: 1.778 m (5' 10") Diagnoses as of 11/25/24 1430 Chills Shakes History of chronic renal failure Elevated lactic acid level The patient presented with chief complaint of shakes and chills. The differential diagnosis associated with this patient's presentation includes underlying bacteremia, sepsis, electrolyte abnormality, dehydration, viral illness, UTI, pneumonia, unlikely ACS. Our workup consisted of ordering/reviewing: Medical workup ordered to rule out any infection including EKG, chest x-ray and lab work. Patient is in agreement with this plan. Medications oxyCODONE-acetaminophen (Percocet) 5-325 MG per tablet 1 tablet (has no administration in time range) vancomycin (Vancocin) 2500 mg in 0.9% sodium chloride 500 mL IVPB (compounded premix) (has no administration in time range) REVAL: With concerns that the patient may be septic based on his presenting symptoms, I did order blood cultures and lab work. CBC was unremarkable except for H&H of 9.2 and 28.8 which is slightly improved from prior. CMP shows a normal bicarb although anion gap mildly elevated to 15. Glucose 178. BUN and creatinine are elevated above baseline at 49 and 5.14. Potassium normal. COVID, influenza and RSV negative. Urinalysis is pending. Lactate was actually 3.5. Chest x-ray showed nothing acute. While here, he complained of his chronic back pain so I ordered 1 Percocet for him. I did order vancomycin with concerns that he may have underlying bacteremia even though he was afebrile and has a normal white count. I told him that we should observe him overnight in the hospital. He is agreeable to that. I did message the on-call carpet weaver who is comfortable with the plan. Hospitalist was notified as well. Patient will be admitted for further treatment and evaluation. The lactate elevation may be a result of his elevated creatinine, but until his blood cultures come back, we will treat him as if he may be bacteremic. There are no other overt signs of sepsis at this time. CRITICAL CARE TIME None CONSULTS: None PROCEDURES: Unless otherwise noted below, none FINAL IMPRESSION 1. Chills 2. Shakes 3. History of chronic renal failure 4. Elevated lactic acid level DISPOSITION Admit 11/25/2024 02:07:28 PM PATIENT REFERRED TO: No follow-up provider specified. DISCHARGE MEDICATIONS: New Prescriptions No medications on file (Comment: Please note this report has been produced using speech recognition software and may contain errors related to that system including errors in grammar, punctuation, and spelling, as well as words and phrases that may be inappropriate. If there are any questions or concerns please feel free to contact the dictating provider for clarification.) Omid Adames MD (electronically signed) Emergency Medicine Provider [1] No past medical history on file. [2] No past surgical history on file. [3] No family history on file. [4] Social History Socioeconomic History Marital status: Single Social Drivers of Health Financial Resource Strain: Medium Risk (05/24/2023) Received from [facility] Overall Financial Resource Strain (CARDIA) Difficulty of Paying Living Expenses: Somewhat hard Food Insecurity: No Food Insecurity (07/11/2024) Received from [facility] Hunger Vital Sign Worried About Running Out of Food in the Last Year: Never true Ran Out of Food in the Last Year: Never true Transportation Needs: No Transportation Needs (07/11/2024) Received from [facility] PRAPARE - Transportation Lack of Transportation (Medical): No Lack of Transportation (Non-Medical): No Physical Activity: Insufficiently Active (12/28/2021) Received from [facility] Exercise Vital Sign Days of Exercise per Week: 7 days Minutes of Exercise per Session: 20 min Stress: Stress Concern Present (12/28/2021) Received from [facility] [employer] - Occupational Stress Questionnaire Feeling of Stress : Very much Social Connections: Socially Isolated (12/28/2021) Received from [facility] Social Connection and Isolation Panel [NHANES] Frequency of Communication with Friends and Family: Once a week Frequency of Social Gatherings with Friends and Family: Never Attends Pentec[employer]al Services: Never Active Member of Clubs or Organizations: Yes Attends Club or Organization Meetings: Never Marital Status: Never Housing Stability: Unknown (07/11/2024) Received from [facility] Housing Stability Vital Sign Unable to Pay for Housing in the Last Year: No Homeless in the Last Year: No Omid Adames MD 11/25/24 1430 Pt received dialysis today documented in this encounter 11-25-2024 Emergency department Triage note Pt received dialysis today 11-25-2024 Physician Emergency department Note EMERGENCY DEPARTMENT ENCOUNTER Pt Name: José Manuel Ashton Birthdate 1960 Date of evaluation: 11/25/2024 ED Provider: Omid Adames MD CHIEF COMPLAINT Chief Complaint Patient presents with Altered Mental Status Pt presents to ED via EMS from [facility] for responding slowly and indicates he is cold. HISTORY OF PRESENT ILLNESS (Location/Symptom, Timing/Onset, Context/Setting, Quality, Duration, Modifying Factors, Severity) Note limiting factors. I wore appropriate PPE for the entirety of this encounter. HPI José Manuel Ashton is a 63 y.o. who presents to the emergency department with chief complaint of tremors and chills. Patient came in by ambulance from dialysis center. Apparently he has not felt well all weekend. He has had shakes and chills although is unaware of any fever. He had his full dialysis treatment. The patient apparently has some baseline cognitive limitations, but he is able to answer questions. He denies any headaches or visual complaints. He is unaware of any fever. He denies any cough or URI symptoms. Denies any chest pain or trouble breathing. Denies any abdominal pain, vomiting or diarrhea. He does make some urine. No rash or bruising that is new. Denies any localizing numbness or weakness. No other acute complaints. He is not sure if he has felt like this before. He is unaware of any ill contacts. Nursing Notes were reviewed. Limitations to history: None Outside historians: None REVIEW OF SYSTEMS Review of Systems Constitutional: Positive for chills. Negative for fever. HENT: Negative. Negative for sore throat. Eyes: Negative for visual disturbance. Respiratory: Negative for cough and shortness of breath. Cardiovascular: Negative for chest pain. Gastrointestinal: Negative for abdominal pain, diarrhea and vomiting. Genitourinary: Negative for dysuria and frequency. Musculoskeletal: Negative for arthralgias and back pain. Skin: Negative for color change and rash. Neurological: Positive for tremors. Negative for syncope, weakness, numbness and headaches. All other systems reviewed and are negative. Pertinent positives and negatives as per HPI. PAST MEDICAL HISTORY Medical History[1] SURGICAL HISTORY Surgical History[2] CURRENT MEDICATIONS Previous Medications No medications on file ALLERGIES Penicillins FAMILY HISTORY Family History[3] SOCIAL HISTORY Social History[4] SCREENINGS PHYSICAL EXAM ED Triage Vitals Temp Heart Rate Resp BP 11/25/24 1211 11/25/24 1211 11/25/24 1211 11/25/24 1214 36.4 C (97.5 F) 80 18 131/54 SpO2 Temp Source Heart Rate Source Patient Position 11/25/24 1211 11/25/24 1211 11/25/24 1211 11/25/24 1211 96 % Oral Monitor Lying BP Location FiO2 (%) 11/25/24 1211 -- Left arm Physical Exam Vitals and nursing note reviewed. Constitutional: Appearance: Normal appearance. He is well-developed. He is not toxic-appearing. Comments: Patient appears slightly uncomfortable although nontoxic and in no severe distress. HENT: Head: Normocephalic and atraumatic. Right Ear: External ear normal. Left Ear: External ear normal. Nose: Nose normal. Mouth/Throat: Mouth: Mucous membranes are moist. Pharynx: Oropharynx is clear. Eyes: Extraocular Movements: Extraocular movements intact. Conjunctiva/sclera: Conjunctivae normal. Pupils: Pupils are equal, round, and reactive to light. Cardiovascular: Rate and Rhythm: Normal rate and regular rhythm. Heart sounds: Normal heart sounds. No murmur heard. Pulmonary: Effort: Pulmonary effort is normal. No respiratory distress. Breath sounds: Normal breath sounds. No wheezing, rhonchi or rales. Abdominal: Palpations: Abdomen is soft. Tenderness: There is no abdominal tenderness. There is no guarding or rebound. Musculoskeletal: General: No swelling or tenderness. Normal range of motion. Cervical back: Normal range of motion and neck supple. Skin: General: Skin is warm and dry. Neurological: General: No focal deficit present. Mental Status: He is alert and oriented to person, place, and time. GCS: GCS eye subscore is 4. GCS verbal subscore is 5. GCS motor subscore is 6. Cranial Nerves: Cranial nerves 2-12 are intact. Sensory: Sensation is intact. Motor: Motor function is intact. Coordination: Coordination is intact. Psychiatric: Mood and Affect: Mood normal. DIAGNOSTIC RESULTS Procedures/EKG: EKG per my interpretation shows a normal sinus rhythm at a rate of 80 with a normal axis. There is low voltage in extremity leads. There is a slow R wave progression versus old septal MD. There is no acute ST elevation or ST depression however. Intervals are within normal limits otherwise. There is no old EKG available for comparison. EKG was reviewed by myself. Physician EKG interpretation can be found in [facility] (Per Emergency Physician): Chest x-ray interpreted by me shows no obvious evidence of infiltrate or failure. Interpretation per the Radiologist below, if available at the time of this note: XR chest 1 view Final Result No focal consolidation or pulmonary edema. Report Dictated on Electronically Signed By: Kj Duran MD Electronically Signed Date/Time: 11/25/2024 12:40 PM EDT ED BEDSIDE ULTRASOUND: Performed by ED Physician - none LABS: Labs Reviewed COMPREHENSIVE METABOLIC PANEL - Abnormal Result Value SODIUM 139 POTASSIUM 4.4 CHLORIDE 99 CARBON DIOXIDE 25 ANION GAP 15 (*) UREA NITROGEN 49 (*) CREATININE 5.14 (*) GLUCOSE 178 (*) CALCIUM 9.1 AST (SGOT) 19 ALT 17 ALKALINE PHOSPHATASE 100 ALBUMIN 3.2 (*) BILIRUBIN, TOTAL 0.5 TOTAL PROTEIN 6.9 eGFR 11.8 (*) CBC WITH AUTO DIFFERENTIAL - Abnormal Auto WBC 6.9 RBC 3.15 (*) Hemoglobin 9.2 (*) Hematocrit 28.8 (*) MCV 91.4 MCH 29.2 MCHC 31.9 RDW 13.0 Platelets 220 MPV 9.2 nRBC 0.0 Neutrophils Relative 72.5 Lymphocytes Relative 15.0 Monocytes Relative 10.1 Eosinophils Relative 1.6 Basophils Relative 0.1 Immature Grans % 0.7 Neutrophils Absolute 5.0 Lymphocytes Absolute 1.0 Monocytes Absolute 0.7 Eosinophils Absolute 0.1 Basophils Absolute 0.0 Immature Grans Absolute 0.1 (*) LACTIC ACID WITH REFLEX - Abnormal LACTIC ACID 3.5 (*) SARS-COV-2, FLU A/B, AND RSV COMBO - Normal SARS-CoV-2 Not Detected Respiratory Syncytial Virus Not Detected Influenza A Not Detected Influenza B Not Detected Narrative: Methodology: real-time, RT-PCR The SARS-CoV-2, Flu A/B, and RSV Combo assay is intended for in vitro diagnostic use under the FDA Emergency Use Authorization (EUA). This test has not been FDA cleared or approved. In compliance with this authorization, please visit www.fda.gov/media/266399/download or www.fda.gov/media/573154/download to access the applicable information sheets. MAGNESIUM - Normal MAGNESIUM 2.0 Narrative: Higher values can be expected in females during menses. BLOOD CULTURE BLOOD CULTURE COMPLETE URINALYSIS WITH REFLEX TO CULTURE LACTIC ACID WITH REFLEX All other labs were within normal range or not returned as of this dictation. EMERGENCY DEPARTMENT COURSE and DIFFERENTIAL DIAGNOSIS/MDM: Vitals: Vitals: 11/25/24 1211 11/25/24 1214 BP: 131/54 Pulse: 80 Resp: 18 Temp: 36.4 C (97.5 F) TempSrc: Oral SpO2: 96% Weight: 113 kg (250 lb) Height: 1.778 m (5' 10") Diagnoses as of 11/25/24 1430 Chills Shakes History of chronic renal failure Elevated lactic acid level The patient presented with chief complaint of shakes and chills. The differential diagnosis associated with this patient's presentation includes underlying bacteremia, sepsis, electrolyte abnormality, dehydration, viral illness, UTI, pneumonia, unlikely ACS. Our workup consisted of ordering/reviewing: Medical workup ordered to rule out any infection including EKG, chest x-ray and lab work. Patient is in agreement with this plan. Medications oxyCODONE-acetaminophen (Percocet) 5-325 MG per tablet 1 tablet (has no administration in time range) vancomycin (Vancocin) 2500 mg in 0.9% sodium chloride 500 mL IVPB (compounded premix) (has no administration in time range) REVAL: With concerns that the patient may be septic based on his presenting symptoms, I did order blood cultures and lab work. CBC was unremarkable except for H&H of 9.2 and 28.8 which is slightly improved from prior. CMP shows a normal bicarb although anion gap mildly elevated to 15. Glucose 178. BUN and creatinine are elevated above baseline at 49 and 5.14. Potassium normal. COVID, influenza and RSV negative. Urinalysis is pending. Lactate was actually 3.5. Chest x-ray showed nothing acute. While here, he complained of his chronic back pain so I ordered 1 Percocet for him. I did order vancomycin with concerns that he may have underlying bacteremia even though he was afebrile and has a normal white count. I told him that we should observe him overnight in the hospital. He is agreeable to that. I did message the on-call carpet weaver who is comfortable with the plan. Hospitalist was notified as well. Patient will be admitted for further treatment and evaluation. The lactate elevation may be a result of his elevated creatinine, but until his blood cultures come back, we will treat him as if he may be bacteremic. There are no other overt signs of sepsis at this time. CRITICAL CARE TIME None CONSULTS: None PROCEDURES: Unless otherwise noted below, none FINAL IMPRESSION 1. Chills 2. Shakes 3. History of chronic renal failure 4. Elevated lactic acid level DISPOSITION Admit 11/25/2024 02:07:28 PM PATIENT REFERRED TO: No follow-up provider specified. DISCHARGE MEDICATIONS: New Prescriptions No medications on file (Comment: Please note this report has been produced using speech recognition software and may contain errors related to that system including errors in grammar, punctuation, and spelling, as well as words and phrases that may be inappropriate. If there are any questions or concerns please feel free to contact the dictating provider for clarification.) Omid E Napora, MD (electronically signed) Emergency Medicine Provider [1] No past medical history on file. [2] No past surgical history on file. [3] No family history on file. [4] Social History Socioeconomic History Marital status: Single Social Drivers of Health Financial Resource Strain: Medium Risk (05/24/2023) Received from [facility] Overall Financial Resource Strain (CARDIA) Difficulty of Paying Living Expenses: Somewhat hard Food Insecurity: No Food Insecurity (07/11/2024) Received from [facility] Hunger Vital Sign Worried About Running Out of Food in the Last Year: Never true Ran Out of Food in the Last Year: Never true Transportation Needs: No Transportation Needs (07/11/2024) Received from [facility] PRAPARE - Transportation Lack of Transportation (Medical): No Lack of Transportation (Non-Medical): No Physical Activity: Insufficiently Active (12/28/2021) Received from [facility] Exercise Vital Sign Days of Exercise per Week: 7 days Minutes of Exercise per Session: 20 min Stress: Stress Concern Present (12/28/2021) Received from [facility] [employer] [place] [employer] - Occupational Stress Questionnaire Feeling of Stress : Very much Social Connections: Socially Isolated (12/28/2021) Received from [facility] Social Connection and Isolation Panel [NHANES] Frequency of Communication with Friends and Family: Once a week Frequency of Social Gatherings with Friends and Family: Never Attends Pentec[employer]al Services: Never Active Member of Clubs or Organizations: Yes Attends Club or Organization Meetings: Never Marital Status: Never Housing Stability: Unknown (07/11/2024) Received from [facility] Housing Stability Vital Sign Unable to Pay for Housing in the Last Year: No Homeless in the Last Year: No Omid Adames MD 11/25/24 1430 07-24-2024 Telephone encounter Note Hi, Pt d/c to a SNF. Referral discarded. Thank you, Claudia Chow LPN [facility] Work Phone: 07-24-2024 Miscellaneous Notes Hi, Pt d/c to a SNF. Referral discarded. Thank you, Claudia Chow LPN documented in this encounter [facility] 07-23-2024 Note [facility] 07-22-2024 Note [facility] 07-22-2024 Note [facility] 07-21-2024 Note [facility] 07-20-2024 Note [facility] 07-20-2024 Note [facility] 07-20-2024 Note [facility] 07-19-2024 Note [facility] 07-19-2024 Note [facility] 07-18-2024 Note [facility] 07-17-2024 Note [facility] 07-16-2024 Note [facility] 07-15-2024 Note [facility] 07-14-2024 Note [facility] 07-13-2024 Note [facility] 07-12-2024 Note [facility] 07-12-2024 Telephone encounter Note Bunny Scott MD [...] care clinicians may also obtain orders from [facility] Virtualist Providers Thank you and we would be happy to answer any questions. Judith Cat LPN 07/12/2024 10:23 AM [facility] Work Phone: 07-12-2024 Miscellaneous Notes Bunny Scott MD Please advise if you are agreeable to signing and following for HHC services? Our Clinicians will be sending the Plan of Care to you for review and approval. They will reach out for any appropriate orders required to provide home care services for the patient. We are not able to initiate [facility] services without a following provider. Home care clinicians may also obtain orders from [facility] Virtualist Providers Thank you and we would be happy to answer any questions. Judith Cat LPN 07/12/2024 10:23 AM documented in this encounter [facility] 07-10-2024 History of Present illness Narrative Chief complaint : Subjective : José Manuel Ashton is a 63 year old male seen for CKD follow up. SUBJECTIVE: José Manuel Ashton is a 63 year old White male with past medical history significant for : Type 2 diabetes, hypertension, hyperlipidemia, depression, colon to [facility] on 05/23/23 with polyp, lumbar radiculopathy, history [...] quittin.2 Smokeless tobacco: Never Tobacco comments: Smokes [place] Vaping Use Vaping status: Never Used Substance [...] Review Reviewed by Sebas Ocampo MD, Ph.D ([id number]) Comment (Serum Prot Electro) A reflex test [...] 3,715.7 Albumin/Creat Ratio <30 mg/g 5,008 (H) Belcher Free, Serum 3.3 - 19.4 mg/L 57.0 (H) Lambda Free, Serum 5.7 - 26.3 mg/L 36.1 (H) K/L Ratio, Serum 0.26 - 1.65 1.58 DNA Antibody <=200 IU/mL 16 DNA Antibody Qualitative Interpretation Negative Negative MPA Result No M protein is identified. No M protein is identified. Staff Review (MP[facility]) Reviewed by Sebas Ocampo MD, Ph.D ([id number]) C3 86 - 166 mg/dL 147 C4 [...] months (on 10/09/2024). documented in this encounter [facility] 06-28-2024 Telephone encounter Note S: Patient spoke with [facility] nurse regarding abnormal labs results being called by the [facility] [place] [facility]. Hx: DM B: Onset of symptoms/concern labs were drawn from the [place] office at his appointment on 06/27/24 having an urgent notification at 15:54 was seen in the office for a 2-month follow up A: Bun 79.9 CR 4.3 Potassium 7.1 R: Paging Dr. Scott at 3:55 No further needs at this time. Reason for Disposition Lab or radiology calling with test results Protocols used: PCP Call - No [id number] 06-28-2024 Miscellaneous Notes S: Patient spoke with [facility] nurse regarding abnormal labs results being called by the [place] [facility]. Hx: DM B: Onset of symptoms/concern labs were drawn from the [place] office at his appointment on 06/27/24 having an urgent notification at 15:54 was seen in the office for a 2-month follow up A: Bun 79.9 CR 4.3 Potassium 7.1 R: Paging Dr. Scott at 3:55 No further needs at this time. Reason for Disposition Lab or radiology calling with test results Protocols used: PCP Call - No [id number] documented in this encounter 05-20-2024 Telephone encounter Note Spoke to the patient's sister and relayed the message and she stated she would inform her brother because she takes all his calls. A 3 year Recall has been placed in [employer]. Brittany Roberson [facility] 05-20-2024 Telephone encounter Note ----- Message from Artem Ahmadi MD sent at 05/16/2024 8:39 AM EST ----- His pathology results are back and show a number of small polyps and we should plan for next colonoscopy in 3 years. Artem Ahmadi MD May 16, 2024 8:39 AM [facility] 05-20-2024 Miscellaneous Notes Spoke to the patient's sister and relayed the message and she stated she would inform her brother because she takes all his calls. A 3 year Recall has been placed in [facility]. Brittany Robreson ----- Message from Artem Ahmadi MD sent [...] 2024 8:39 AM documented in this encounter [facility] 05-16-2024 Progress note Formatting of t his note might be different from the original. His pathology results are back and show a number of small polyps and we should plan for next colonoscopy in 3 years. Artem Ahmadi MD May 16, 2024 8:39 AM [facility] Work Phone: 05-14-2024 Telephone encounter Note A 3 year Recall has been placed in [facility]. Called the patient and left him a voice message that a 3 Year Recall has been placed and he will receive a letter to call to schedule when he is due. Brittany Roberson [facility] 05-14-2024 Miscellaneous Notes A 3 year Recall has been placed in [facility]. Called the patient and left him a voice message that a 3 Year Recall has been placed and he will receive a letter to call to schedule when he is due. Brittany Roberson documented in this encounter [facility] 05-13-2024 Hospital Discharge instructions Artem Ahmadi MD [...] hours. Eat high-fiber foods or use an [id number]-ois-wdslygu fiber supplement, if needed. Rest and avoid [...] are getting worse. documented in this encounter [facility] 05-13-2024 History and physical note HISTORY AND [...] OF RECTAL TUMOR, TRANSANAL 11/24/2020 Dr. Ahmadi [employer] CATARACT EXTRACAP,INSERT LENS Left 08/18/2022 REMV CATARACT [...] quittin.1 Smokeless tobacco: Never Tobacco comments: Smokes [place] Vaping Use Vaping status: Never Used Substance [...] are managed by this patient by: PATIENT Nusrat Lewis, OA 11/08/[address] Scott: "Patient [...] which included preparing to see the patient, [id number] patient care, completing clinical documentation, obtaining and/or reviewing separately obtained history, and performing a medically appropriate examination. Instructions Given to Patient: Patient given verbal preop instructions and voices comprehension and compliance. SIGNATURE: Rebecca Corey APRN.CNP PATIENT NAME: José Manuel Ashton DATE: May 13, 2024 TIME: 10:56 AM PAGER/CONTACT #: [facility] 05-13-2024 History and physical note HISTORY AND [...] quittin.1 Smokeless tobacco: Never Tobacco comments: Smokes [place] Vaping Use Vaping status: Never Used Substance [...] are managed by this patient by: PATIENT Nusrat LewisZIGGY 11/08/[address] Scott: "Patient to continue [...] which included preparing to see the patient, [id number] patient care, completing clinical documentation, obtaining and/or reviewing separately obtained history, and performing a medically appropriate examination. Instructions Given to Patient: Patient given verbal preop instructions and voices comprehension and compliance. SIGNATURE: Rebecca Corey APRN.CNP PATIENT NAME: José Manuel Ashton DATE: May 13, 2024 TIME: 10:56 AM PAGER/CONTACT #: documented in this encounter [facility] 04-27-2024 Telephone encounter Note S: Patient's sister (Janell) spoke with [facility] nurse regarding medication problem / prior [...] call the pharmacy" Return call back to [facility] with an update. Recommend calling the pharmacy in 1 hour to see if medication is ready. Any issues, please give the office a call back. Sister verbalizes understanding. Reason for Disposition [1] Caller has URGENT medicine question about med that PCP or specialist prescribed AND [2] triager unable to answer question Protocols used: Medication Question [id number] 04-27-2024 Miscellaneous Notes S: Patient's sister (Janell) spoke with [facility] nurse regarding medication problem / prior [...] call the pharmacy" Return call back to [facility] with an update. Recommend calling the pharmacy in 1 hour to see if medication is ready. Any issues, please give the office a call back. Sister verbalizes understanding. Reason for Disposition [1] Caller has URGENT medicine question about med that PCP or specialist prescribed AND [2] triager unable to answer question Protocols used: Medication Question [id number] documented in this encounter 04-26-[address] Dudley received [...] will continue to try and contact patient. [facility] 04-26-[address] Dudley received a [...] and contact patient. documented in this encounter [facility] 02-20-2024 Telephone encounter Note Surgery Checklist Type: COLONOSCOPY Admission Type: outpatient Anesthesia: MAC Date: 05/13/24 Arrival Time: 12:30 PM Surgery Time: 1:30 PM [facility] Prep mailed to patient. Brittany Roberson [facility] 02-20-2024 Telephone encounter Note ----- Message from Brittany Dowling sent at 12/22/2023 11:46 AM EDT ----- Regarding: Schedule Colonoscopy Call and Schedule a Colonoscopy. [facility] 02-20-2024 Miscellaneous Notes Surgery Checklist Type: COLONOSCOPY Admission Type: outpatient Anesthesia: MAC Date: 05/13/24 Arrival Time: 12:30 PM Surgery Time: 1:30 PM [facility] Prep mailed to patient. Brittany Roberson ----- Message from Brittany Dowling sent at 12/22/2023 11:46 AM EDT ----- Regarding: Schedule Colonoscopy Call and Schedule a Colonoscopy. documented in this encounter [facility] 01-24-2024 History of Present illness Narrative Chief complaint : Subjective : José Manuel Ashton is a 63 year old male seen for CKD follow up. SUBJECTIVE: José Manuel Ashton is a 63 year old White male with past medical history significant for : Type 2 diabetes, hypertension, hyperlipidemia, depression, colon to [facility] on 05/23/23 with polyp, lumbar radiculopathy, history [...] quittin.8 Smokeless tobacco: Never Tobacco comments: Smokes [place] Vaping Use Vaping status: Never Used Substance [...] Review Reviewed by Sebas Ocampo MD, Ph.D ([id number]) Comment (Serum Prot Electro) A reflex test [...] 3,715.7 Albumin/Creat Ratio <30 mg/g 5,008 (H) Belcher Free, Serum 3.3 - 19.4 mg/L 57.0 (H) Lambda Free, Serum 5.7 - 26.3 mg/L 36.1 (H) K/L Ratio, Serum 0.26 - 1.65 1.58 DNA Antibody <=200 IU/mL 16 DNA Antibody Qualitative Interpretation Negative Negative MPA Result No M protein is identified. No M protein is identified. Staff Review ([facility]) Reviewed by Sebas Ocampo MD, Ph.D ([id number]) C3 86 - 166 mg/dL 147 C4 [...] months (on 07/24/2024). documented in this encounter [facility] 12-29-2023 Note HNO ID: [id number] Author: RENETTA GANNON MD Service: ? Author [...] h/o steroid response post-op Plan: Monitor JANELL [phone] (sister, contact) ([id number]) Early dry stage nonexudative age-related macular degeneration of both eyes Comment: Mottling, no fluid Plan: Monitor RTC 9 months diabetic check I have confirmed and edited as necessary the relevant ophthalmic history, ROS, and the neuro exam findings as obtained by others. I have seen and examined this patient. I have discussed the case and the management of this patient's care with the Resident/Fellow/Water Tester, if applicable. I also have reviewed and agree with the assessment and plan as stated above and agree with all of its relevant components. Renetta Gannon MD December 29, 2023 4:16 PM [facility] 12-29-2023 History of Present illness Narrative ([id number], [...] h/o steroid response post-op Plan: Monitor JANELL [phone] (sister, contact) ([id number]) Early dry stage nonexudative age-related macular degeneration of both eyes Comment: Mottling, no fluid Plan: Monitor RTC 9 months diabetic check I have confirmed and edited as necessary the relevant ophthalmic history, ROS, and the neuro exam findings as obtained by others. I have seen and examined this patient. I have discussed the case and the management of this patient's care with the Resident/Fellow/Water Tester, if applicable. I also have reviewed and agree with the assessment and plan as stated above and agree with all of its relevant components. Renetta Gannon MD December 29, 2023 4:16 PM documented in this encounter [facility] 12-22-2023 Telephone encounter Note PT called to cancel appointment 01/21, stating that he did not need to see Brent due to him having an appointment w/ a carpet weaver.Reiterated to the PT last appointment orders and that issue brent was seeing for is recommended to keep appointment w/ urology. PT still refused cancelled appointment. Noah Mejia [facility] 12-22-2023 Miscellaneous Notes PT called to cancel appointment 01/21, stating that he did not need to see Brent due to him having an appointment w/ a carpet weaver.Reiterated to the PT last appointment orders and that issue brent was seeing for is recommended to keep appointment w/ urology. PT still refused cancelled appointment. Noah Mejia documented in this encounter [facility] 12-18-2023 Telephone encounter Note Called the patient and left a voice message asking the patient to call the office back to schedule his Screening Colonoscopy. Brittany Roberson [facility] 12-18-2023 Miscellaneous Notes Called the patient and left a voice message asking the patient to call the office back to schedule his Screening Colonoscopy. Brittany Roma Karol documented in this encounter [facility] 11-20-2023 Miscellaneous Notes SITUATION: only patient present [...] for intervention/education details. documented in this encounter [facility] 11-20-2023 Patient's home Note SITUATION: only patient [...] restrictions See intervention summary for intervention/education details. [facility] Work Phone: 11-17-2023 Telephone encounter Note Unable to reach patient by phone to schedule P.T. visit. [facility] Work Phone: 11-17-2023 Miscellaneous Notes Unable to reach patient by phone to schedule P.T. visit. documented in this encounter [facility] 11-17-2023 Miscellaneous Notes Called all numbers listed for patient and left voice messages. Patient/caregiver did not return phone calls. documented in this encounter [facility] 11-17-2023 Plan of care note Called all numbers listed for patient and left voice messages. Patient/caregiver did not return phone calls. T [facility] Work Phone: 11-17-2023 Miscellaneous Notes SN contacted Dr. Scott's office, no answer, VM left on nurse line with patient's name, , and message that this patient has been discharged from [facility] services-goals met. Call back number of [phone]. documented in this encounter [facility] 11-17-2023 Patient's home Note SN contacted Dr. Scott's office, no answer, VM left on nurse line with patient's name, , and message that this patient has been discharged from skilled home [facility] services-goals met. Call back number of [phone]. [facility] Work Phone: 11-16-2023 Miscellaneous Notes SITUATION: Long Term Discipline Discharge visit completed today. only patient [...] drainage, no redness or any s/s infection. 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 [...] Discharged due to Goals met. SN emailed cable tower operatorGirma herman RN re: SNDD today, asked if she would report this to Dr Scott since she is not in [employer] system RECOMMENDATION: Patient to continue with PT services. documented in this encounter [facility] 11-16-2023 Patient's home Note SITUATION: Long Term Discipline Discharge visit completed today. only patient [...] drainage, no redness or any s/s infection. 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 [...] Discharged due to Goals met. SN emailed cable tower operatorGirma herman RN re: SNDD today, asked if she would report this to Dr Scott since she is not in [employer] system RECOMMENDATION: Patient to continue with PT services. [facility] Work Phone: 11-15-2023 Miscellaneous Notes received a return fax from Dr. Scott dated 11/08/23 stating: Patient to continue with Sliding Scale INsulin only." No regularly scheduled Insulin dosing." This Sn then called sister "Janell" to inform her of this message. She states "that is what he has been doing." Ster verbalizes understanding. documented in this encounter [facility] 11-15-2023 Patient's home Note SN received a return fax from Dr. Scott dated 11/08/23 stating: Patient to continue with Sliding Scale INsulin only." No regularly scheduled Insulin dosing." This Sn then called sister "Janell" to inform her of this message. She states "that is what he has been doing." Ster verbalizes understanding. [facility] Work Phone: 11-15-2023 Miscellaneous Notes 11/15/23 11:16 AM - 11:20 AM BILINGUAL HR GENERALIST received a phone call from the pt.'s sister Janell Waldrop and she stated that they did not complete the paperwork for PASSPORT due to she stated they did not think the pt. would qualify. BILINGUAL HR GENERALIST asked the pt.'s sister if the pt. was able to bath himself. She stated that he is able to take his own shower. She stated she sets up his meds and he is able to get his meals. She stated that she took him grocery shopping yesterday, BILINGUAL HR GENERALIST asked the pt.'s sister about transportation for the pt. to go to Outpatient Therapy. The pt.'s sister stated he goes on Monday and she is take him. The pt.'s sister stated she will transport the pt. to his Outpatient Therapy and they are aware of [facility]. She stated that the pt. was doing alot better. BILINGUAL HR GENERALIST informed the pt.'s sister to call BILINGUAL HR GENERALIST with any needs. documented in this encounter [facility] 11-15-2023 Patient's home Note 11/15/23 11:16 AM - 11:20 AM BILINGUAL HR GENERALIST received a phone call from the pt.'s sister Janell Waldrop and she stated that they did not complete the paperwork for PASSPORT due to she stated they did not think the pt. would qualify. BILINGUAL HR GENERALIST asked the pt.'s sister if the pt. was able to bath himself. She stated that he is able to take his own shower. She stated she sets up his meds and he is able to get his meals. She stated that she took him grocery shopping yesterday, BILINGUAL HR GENERALIST asked the pt.'s sister about transportation for the pt. to go to Outpatient Therapy. The pt.'s sister stated he goes on Monday and she is take him. The pt.'s sister stated she will transport the pt. to his Outpatient Therapy and they are aware of [facility]. She stated that the pt. was doing alot better. BILINGUAL HR GENERALIST informed the pt.'s sister to call BILINGUAL HR GENERALIST with any needs. [facility] Work Phone: 11-14-2023 Miscellaneous Notes 11/14/23 11:51 AM - 11:53 AM BILINGUAL HR GENERALIST called the pt.'s sister Janell and left her a message that BILINGUAL HR GENERALIST was calling regarding if the pt. had a PASSPORT assessment and regarding transportation for Outpatient Therapy. BILINGUAL HR GENERALIST left her name and phone number for the pt.'s sister to call BILINGUAL HR GENERALIST back. documented in this encounter [facility] 11-14-2023 Patient's home Note 11/14/23 11:51 AM - 11:53 AM BILINGUAL HR GENERALIST called the pt.'s sister Janell and left her a message that BILINGUAL HR GENERALIST was calling regarding if the pt. had a PASSPORT assessment and regarding transportation for Outpatient Therapy. BILINGUAL HR GENERALIST left her name and phone number for the pt.'s sister to call BILINGUAL HR GENERALIST back. [facility] Work Phone: 11-14-2023 Miscellaneous Notes SITUATION: only [...] for intervention/education details. documented in this encounter [facility] 11-14-2023 Patient's home Note SITUATION: only patient [...] d/c See intervention summary for intervention/education details. [facility] Work Phone: 11-13-2023 Miscellaneous Notes SITUATION: OT [...] for intervention/education details. documented in this encounter [facility] 11-13-2023 Patient's home Note SITUATION: OT discharge [...] bathing See intervention summary for intervention/education details. [facility] Work Phone: 11-10-2023 Telephone encounter Note S: Patient sister called the [facility] access center with complaint of Questions about G7 Dexcom. B: Ongoing unsure if the reader will quill picking machine operator the blood sugar reading when he places the new G7 A: Patient c/o trying to put new G7 sensor on. Asking if the reader will work when they replace the sensor. R: Advised the reader should automatically quill picking machine operator with the new G7 sensor. If any [...] triager answers question Protocols used: Medication Question [id number] 11-10-2023 Miscellaneous Notes S: Patient sister called the clinical access center with complaint of Questions about G7 Dexcom. B: Ongoing unsure if the reader will quill picking machine operator the blood sugar reading when he places the new G7 A: Patient c/o trying to put new G7 sensor on. Asking if the reader will work when they replace the sensor. R: Advised the reader should automatically quill picking machine operator with the new G7 sensor. If any [...] triager answers question Protocols used: Medication Question [id number] documented in this encounter 11-10-2023 Miscellaneous Notes SITUATION: Long Term routine visit completed today. SISTER also present [...] 206 at 11:30pm last night. This am amp=857. Patient denies any s/s HTN See intervention summary for education details. Patient demonstrated a need for further skilled SN services for chronic disease management & education and safety. Current Discharge plan: family support RECOMMENDATION: Next visit to focus on (be specific): SNDD documented in this encounter [facility] 11-10-2023 Patient's home Note SITUATION: Long Term routine visit completed today. SISTER also present [...] 206 at 11:30pm last night. This am rjl=[id number]. Patient denies any s/s HTN See intervention summary for education details. Patient demonstrated a need for further skilled SN services for chronic disease management & education and safety. Current Discharge plan: family support RECOMMENDATION: Next visit to focus on (be specific): SNDD [facility] Work Phone: 11-09-2023 Miscellaneous Notes SITUATION: only [...] for intervention/education details. documented in this encounter [facility] 11-09-2023 Patient's home Note SITUATION: only patient [...] training See intervention summary for intervention/education details. [facility] Work Phone: 11-07-2023 Miscellaneous Notes SITUATION: sister [...] for intervention/education details. documented in this encounter [facility] 11-07-2023 Patient's home Note SITUATION: sister present during today's visit. patient reports the following since the last homecare visit: medications/allergies--taking 2 new meds, message sent to SN, no fall. patient reports that he saw [...] ex See intervention summary for intervention/education details. [facility] Work Phone: 11-07-2023 Miscellaneous Notes Patient's sister cancelled vs for today, patient has PCP appt. She said to make next SN vs FRI this week. SN Notified machine adjuster leader case trimmgr Girma iHnds RN, She will fax Dr Scott re: missed vs as she is not in [employer] system documented in this encounter [facility] 11-07-2023 Patient's home Note Patient's sister cancelled vs for today, patient has PCP appt. She said to make next SN vs FRI this week. SN Notified machine adjuster leader case trimmgr Girma Hinds RN, She will fax Dr Tyler patel: missed vs as she is not in [employer] system [facility] Work Phone: 11-06-2023 Miscellaneous Notes SITUATION: OT [...] ue hep safety documented in this encounter [facility] 11-06-2023 Patient's home Note SITUATION: OT routine [...] focus on review of ue hep safety [facility] Work Phone: 11-03-2023 Miscellaneous Notes sent the [...] Simeon Hinds RN documented in this encounter [facility] 11-03-2023 Patient's home Note SN sent the following fax to Dr. Scott: Patient: José Manuel Ashton : 1960 Physician: Dr. Bunny Soctt Please clarify if this above patient is to take the "new" Sliding Scale Insulin in addition to the already scheduled Insulin lispro 8u prior to each meal and Insulin glargine 24u at HS? Thank you! Please return to Attn: Simeon Hinds RN [facility] Work Phone: 11-03-2023 Miscellaneous Notes SITUATION: Long Term routine visit completed today. only patient also [...] sliding scale. So this am , his EPO=249 & he only took 2 units Humalog, NOT 10 units total. SN called Dr Scott's office, yet they are closed, 3:30pm. SN reported this to machine adjuster leader case trimGirma herman RN & She will fax this [...] understanding. His sister is also going to quill picking machine operator some glucose tablets at the pharmacy [facility] [...] if humalog clarified? documented in this encounter [facility] 11-03-2023 Patient's home Note SITUATION: Long Term routine visit completed today. only patient also [...] sliding scale. So this am , his MIH=044 & he only took 2 units Humalog, NOT 10 units total. SN called Dr Scott's office, yet they are closed, 3:30pm. SN reported this to machine adjuster leader case trimGirma herman RN & She will fax this [...] understanding. 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 Patient demonstrated a need for further skilled SN services for chronic disease management & education and medication education. Current Discharge plan: family support RECOMMENDATION: Next visit to focus on (be specific): add any new meds to med list, see if humalog clarified? [facility] Work Phone: 11-02-2023 Miscellaneous Notes SITUATION: only [...] for intervention/education details. documented in this encounter [facility] 11-02-2023 Patient's home Note SITUATION: only patient [...] training See intervention summary for intervention/education details. [facility] Work Phone: 10-31-2023 Miscellaneous Notes SITUATION: Long Term routine visit completed today. only patient also [...] uses ice. Incision is healing, dry, pink, LYLE. Small scab left to upper portion. States [...] PCP appt 10/31 documented in this encounter [facility] 10-31-2023 Patient's home Note SITUATION: Long Term routine visit completed today. only patient also [...] uses ice. Incision is healing, dry, pink, LYLE. Small scab left to upper portion. States [...] med changes from his PCP appt 10/31 [facility] Work Phone: 10-30-2023 Miscellaneous Notes SITUATION: OT [...] bathing and transfers documented in this encounter [facility] 10-30-2023 Patient's home Note SITUATION: OT routine [...] focus on shower level bathing and transfers [facility] Work Phone: 10-28-2023 Miscellaneous Notes PT to [...] cane for mobilization ASSESSMENT: Patient evaluated by [facility] Homecare physical therapy. Reviewed and explained homecare [...] for intervention/education details. documented in this encounter [facility] 10-28-2023 Patient's home Note PT to contact Dr. Gutierrez on 10/30/23 for the following: Clarify status of back brace. [facility] Work Phone: 10-28-2023 Patient's home Note SITUATION: [...] cane for mobilization ASSESSMENT: Patient evaluated by [facility] Homecare physical therapy. Reviewed and explained homecare [...] HEP. See intervention summary for intervention/education details. [facility] 10-27-2023 Telephone encounter Note Patient accepted and confirmed PT eval for 10/28/23. [facility] 10-27-2023 Miscellaneous Notes Patient accepted and confirmed PT eval for 10/28/23. documented in this encounter [facility] 10-27-2023 Telephone encounter Note There has been a delay in service for Home Care PT Evaluation for this patient due to schedule conflict. Patient was notified on 10/27/23. Thank you for this referral, please contact us with any questions. Maxine Lopez Field Supervisor [facility] 10-27-2023 Miscellaneous Notes There has been a delay in service for Home Care PT Evaluation for this patient due to schedule conflict. Patient was notified on 10/27/23. Thank you for this referral, please contact us with any questions. Maxine Lopez Field Supervisor documented in this encounter [facility] 10-27-2023 Miscellaneous Notes SITUATION: OT evaluation only [...] due to surgical precautions. Patient evaluated by [facility] Homecare occupational therapy. Reviewed and explained homecare [...] for intervention/education details. documented in this encounter [facility] 10-27-2023 Patient's home Note SITUATION: OT evaluation [...] due to surgical precautions. Patient evaluated by [facility] Homecare occupational therapy. Reviewed and explained homecare [...] hep. See intervention summary for intervention/education details. [facility] Work Phone: 10-26-2023 Miscellaneous Notes 10/26/23 BILINGUAL HR GENERALIST made a PASSPORT referral for the pt. to [facility]. documented in this encounter [facility] 10-26-2023 Patient's home Note 10/26/23 BILINGUAL HR GENERALIST made a PASSPORT referral for the pt. to [facility]. [facility] Work Phone: 10-26-2023 Miscellaneous Notes SITUATION: Medical [...] Current Use of Insulin (Hcc), Reason for HAIR MIXER referral: eval and treat for Community Resources-"global or Mom's meals?, eligible for PASSPORT. Pt could use both for personal care and homemaking assist. Family dynamics and household members: The pt. lives alone in senior apartment that he recently moved into the end of August. The pt.'s sister Laci Waldrop who lives in [place] is the pt.'s primary caregiver. ASSESSMENT: HAIR MIXER greeted at door by Eda Bright RN who was finishing her visit. The patien's sister natalia been assisting the pt. almost daily and feels the pt. needs more help in the home. Se is concerned about the pt. needing assist with bathing. Comments: BILINGUAL HR GENERALIST arrived the pt.'s apt. and the pt.'s sister had went to meet BILINGUAL HR GENERALIST at the main door. The pt.'s sister Janell came back to the pt.'s apt. The pt.'s apt. was scarcely furnished and the pt. does not have a TV. The pt.'s sister stated she is going to buy the pt. a smart TV. The pt.'s sister discussed how the pt. living in a basement apartment the legal secretary receptionist on his phone and TV are not good and she was told to get the pt. a smart TV. The pt. has a radio that he had on. BILINGUAL HR GENERALIST educated the pt. and his sister Janell on [facility] and PASSPORT for an Aide/Homemaker, Home Delivered Meals and ER Medical Alert. The pt.'s sister stated she was going to check into the pt.'s insurance [facility] Medicare regarding if they would provide the pt. with an ER Medical Alert. BILINGUAL HR GENERALIST informed the pt. and his sister that they can call member or customer service on the back of the pt.'s insurnace card regarding this. BILINGUAL HR GENERALIST educated on [facility] for Home Delivered Meals and [place] Home Delivered Meals through [facility]. The pt.'s sister discussed the pt. needing to be on a Diabetic diet. BILINGUAL HR GENERALIST discussed other Home Delivered Meal Providers sucha as Moms Meals and Global Meals for Diabetic Meals and they are provided under PASSPORT. The pt. and his sister want BILINGUAL HR GENERALIST to make a PASSPORT referral for the pt. to [facility]. BILINGUAL HR GENERALIST did inform the pt. and his sister it takes time to get on PASSPORT. The pt.'s sister has been taking the pt. to all his medical appointments. BILINGUAL HR GENERALIST educated on [facility] [employer] and that the pt.'s [facility] Medicare may provide transportation to medical appointments and to talk with member or customer service on the back of the pt.'s insurance card. The pt.'s sister stated she grocery shops for the pt. BILINGUAL HR GENERALIST educated on [facility] having Volunteers that will grocery shop at [facility] for you. ;SW discussed with the pt. and his sister regarding Advanced Directives for the Living Will and Medical POA. The pt.stated she puts his sister donw that they can talk to her. BILINGUAL HR GENERALIST educated more the Medical POA and Living Will. The pt.'s sister stated she thinks the insurance lady gave them the forms that they can complete if wanted. The pt.'s sister is planning to take the pt. to a Coil Spring Assembler to get the pt.'s toenails cut. BILINGUAL HR GENERALIST educated the pt. and his sister on the [employer] for a Coil Spring Assembler to come to the home if too hard to get the pt. out. RECOMMENDATIONS: Recommended the following services: [facility]/PASSPORT, [facility] For Older [facility]ults for Home Delivered Meals, Volunteer to grocery shop at [facility], [facility] Medicare may provide transportation to medical appointments and provide the pt. with an ER Medical Alert, other Home Delivered Meal Providers. Referrals made to: BILINGUAL HR GENERALIST made a PASSPORT referral for the pt. to [facility]. Written information provided: On [facility]/PASSPORT. Response to recommendations: patient and his siter Janell in agreement to referral made to [facility] for PASSPORT. Medical social work provided support services in order to ensure a safe and appropriate discharge plan. If care team members have any additional concerns identified in the home, please notify HAIR MIXER for follow up. HAIR MIXER provided name and number to patient and his sister Janell for follow up if/when needed. Team/Physician updated: 1:49 PM - 1:52 PM BILINGUAL HR GENERALIST [facility] BILINGUAL HR GENERALIST made a home visit to the pt. today and his sister Janell was present. BILINGUAL HR GENERALIST stated that the pt.'s sister Janell assists the pt. almost daily. BILINGUAL HR GENERALIST stated that she made a PASSPORT referral for the pt. to [facility] for the pt. to get an Aide/Homemaker, Home Delivered Meals, ER Medical Alert. BILINGUAL HR GENERALIST stated that she spoke to the pt. and his sister regarding transportation and that the pt.'s [facility] Medicare may provide transportation to medical appointments and provide the pt. with an ER Medical Alert. Mckayla stated she will inform the Dr. of this. documented in this encounter [facility] 10-26-2023 Patient's home Note SITUATION: Medical Social Work evaluation completed today. The patient and his sister Janell present during today's visit. The patient and caregiver reports the following changes since the last homecare visit: Falls--None BACKGROUND: Diagnoses (reason for Home Care): Alcohol Dependence (Hcc), Type 2 Diabetes Mellitus With Stage 3b Chronic Kidney Disease, With Long-Term Current Use of Insulin (Hcc), Reason for HAIR MIXER referral: eval and treat for Community Resources-"global or Mom's meals?, eligible for PASSPORT. Pt could use both for personal care and homemaking assist. Family dynamics and household members: The pt. lives alone in senior apartment that he recently moved into the end of August. The pt.'s sister Laci Waldrop who lives in [place] is the pt.'s primary caregiver. ASSESSMENT: HAIR MIXER greeted at door by Eda Bright RN who was finishing her visit. The patien's sister fisher been assisting the pt. almost daily and feels the pt. needs more help in the home. Se is concerned about the pt. needing assist with bathing. Comments: BILINGUAL HR GENERALIST arrived the pt.'s apt. and the pt.'s sister had went to meet BILINGUAL HR GENERALIST at the main door. The pt.'s sister Janell came back to the pt.'s apt. The pt.'s apt. was scarcely furnished and the pt. does not have a TV. The pt.'s sister stated she is going to buy the pt. a smart TV. The pt.'s sister discussed how the pt. living in a basement apartment the legal secretary receptionist on his phone and TV are not good and she was told to get the pt. a smart TV. The pt. has a radio that he had on. BILINGUAL HR GENERALIST educated the pt. and his sister Janell on [facility] and PASSPORT for an Aide/Homemaker, Home Delivered Meals and ER Medical Alert. The pt.'s sister stated she was going to check into the pt.'s insurance [facility] Medicare regarding if they would provide the pt. with an ER Medical Alert. BILINGUAL HR GENERALIST informed the pt. and his sister that they can call member or customer service on the back of the pt.'s insurnace card regarding this. BILINGUAL HR GENERALIST educated on [facility] for Home Delivered Meals and [place] Home Delivered Meals through [facility]. The pt.'s sister discussed the pt. needing to be on a Diabetic diet. BILINGUAL HR GENERALIST discussed other Home Delivered Meal Providers sucha as Moms Meals and Global Meals for Diabetic Meals and they are provided under PASSPORT. The pt. and his sister want BILINGUAL HR GENERALIST to make a PASSPORT referral for the pt. to [facility]. BILINGUAL HR GENERALIST did inform the pt. and his sister it takes time to get on PASSPORT. The pt.'s sister has been taking the pt. to all his medical appointments. BILINGUAL HR GENERALIST educated on [facility] [employer] and that the pt.'s [facility] Medicare may provide transportation to medical appointments and to talk with member or customer service on the back of the pt.'s insurance card. The pt.'s sister stated she grocery shops for the pt. BILINGUAL HR GENERALIST educated on [facility] having Volunteers that will grocery shop at [employer] for you. ;SW discussed with the pt. and his sister regarding Advanced Directives for the Living Will and Medical POA. The pt.stated she puts his sister donw that they can talk to her. BILINGUAL HR GENERALIST educated more the Medical POA and Living Will. The pt.'s sister stated she thinks the insurance lady gave them the forms that they can complete if wanted. The pt.'s sister is planning to take the pt. to a Coil Spring Assembler to get the pt.'s toenails cut. BILINGUAL HR GENERALIST educated the pt. and his sister on the [employer] for a Coil Spring Assembler to come to the home if too hard to get the pt. out. RECOMMENDATIONS: Recommended the following services: [facility] [employer] For Older Ad[facility] for Home Delivered Meals, Volunteer to grocery shop at [facility] Medicare may provide transportation to medical appointments and provide the pt. with an ER Medical Alert, other Home Delivered Meal Providers. Referrals made to: BILINGUAL HR GENERALIST made a PASSPORT referral for the pt. to [facility]. Written information provided: On [facility]/PASSPORT. Response to recommendations: patient and his siter Janell in agreement to referral made to [facility] [employer] for PASSPORT. Medical social work provided support services in order to ensure a safe and appropriate discharge plan. If care team members have any additional concerns identified in the home, please notify HAIR MIXER for follow up. HAIR MIXER provided name and number to patient and his sister Janell for follow up if/when needed. Team/Physician updated: 1:49 PM - 1:52 PM BILINGUAL HR GENERALIST called Dr. Bunny Scott and spoke to Crsytal regarding BILINGUAL HR GENERALIST made a home visit to the pt. today and his sister Janell was present. BILINGUAL HR GENERALIST stated that the pt.'s sister Janell assists the pt. almost daily. BILINGUAL HR GENERALIST stated that she made a PASSPORT referral for the pt. to [facility] [employer] for the pt. to get an Aide/Homemaker, Home Delivered Meals, ER Medical Alert. BILINGUAL HR GENERALIST stated that she spoke to the pt. and his sister regarding transportation and that the pt.'s [facility] Medicare may provide transportation to medical appointments and provide the pt. with an ER Medical Alert. Mckayla stated she will inform the DrShireen of this. [facility] Work Phone: 10-26-2023 Miscellaneous Notes SITUATION: Long Term routine visit completed today. 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 pt's sister also [...] them to cleanse with alcohol & leave LYLE or can apply ABD for protection/padding Patient [...] specific): assess back incision, blood sugars, pain [facility] Work Phone: 10-24-2023 Miscellaneous Notes 10/24/23 9:30 AM - 9:35 AM BILINGUAL HR GENERALIST received a phone call from the pt.'s sister Janell Ashton returning BILINGUAL HR GENERALIST'S phone call. BILINGUAL HR GENERALIST stated she was calling regarding the pt. and community resources. BILINGUAL HR GENERALIST educated the pt.'s sister on [facility] and PASSdateIITians. BILINGUAL HR GENERALIST discussed an Aide/Homemaker, Home Delivered Meals and ER Medical Alert under PASSPORT. BILINGUAL HR GENERALIST stated she could make a home visit and the pt.'s sister supportive of this. She stated that she got the pt. a shower chair and handheld shower.She stated that she is not sure about the pt. bathing. The pt.'s sister wants to be present for BILINGUAL HR GENERALIST visit and BILINGUAL HR GENERALIST visit scheduled for 10/26/23 at 10:00 AM. documented in this encounter [facility] 10-24-2023 Patient's home Note 10/24/23 9:30 AM - 9:35 AM BILINGUAL HR GENERALIST received a phone call from the pt.'s sister Janell Ashton returning BILINGUAL HR GENERALIST'S phone call. BILINGUAL HR GENERALIST stated she was calling regarding the pt. and community resources. BILINGUAL HR GENERALIST educated the pt.'s sister on [facility] Agency on Aging and PASSPORT. BILINGUAL HR GENERALIST discussed an Aide/Homemaker, Home Delivered Meals and ER Medical Alert under PASSPORT. BILINGUAL HR GENERALIST stated she could make a home visit and the pt.'s sister supportive of this. She stated that she got the pt. a shower chair and handheld shower.She stated that she is not sure about the pt. bathing. The pt.'s sister wants to be present for BILINGUAL HR GENERALIST visit and BILINGUAL HR GENERALIST visit scheduled for 10/26/23 at 10:00 AM. [facility] Work Phone: 10-23-2023 Miscellaneous Notes 10/23/23 12:48 PM - 12;50 PM BILINGUAL HR GENERALIST called the pt.'s sister Janell Ashton and left her a message that BILINGUAL HR GENERALIST was calling regarding the pt. and community resources and more help with the pt.'s care. BILINGUAL HR GENERALIST left her name and phone number to call BILINGUAL HR GENERALIST back. documented in this encounter [facility] 10-23-2023 Patient's home Note 10/23/23 12:48 PM - 12;50 PM BILINGUAL HR GENERALIST called the pt.'s sister Janell Ashton and left her a message that BILINGUAL HR GENERALIST was calling regarding the pt. and community resources and more help with the pt.'s care. BILINGUAL HR GENERALIST left her name and phone number to call BILINGUAL HR GENERALIST back. [facility] Work Phone: 10-22-2023 Miscellaneous Notes SITUATION: Long Term SOC visit completed today. only patient present [...] laminectomy on 09/25 and then went to [facility] for rehab. He returned home on 10/19. [...] on edge of bed for review of [facility] booklet and signed consent. SN then assessed [...] be here after she gets home from scientologist. Pt has a lower back incision that is covered with a ABD pad and has lidocaine patches to either side(placed on 10/19). All of this was removed by SN. Incision is well approximated and secured with steristrips. There is a small opening at most proximal area that has a scant amount of serous drainage and pt was placed on cephalexin before dc by [facility]. Immediate area is slightly red but does [...] and pt and sister are VERY interested. HAIR MIXER referral is in place to address. SN will also have HAIR MIXER address any other resources such as PASSPORT; pt could benefit from personal care assistance as well as homemaking and ways to make him more independent from his sister. Pt's surgery was at [facility] and he will follow up with them [...] with his care but does live in [place] and is not available 24/10 See intervention [...] services: Patient agreeable to PT, OT and HAIR MIXER referrals. Patient declined N/A referrals. Additional concerns to be followed up on: NONE Next visit to focus on (be specific): incision check, CP assessment, continue diabetic teaching, follow up on HAIR MIXER referral for community resources. documented in this encounter [facility] 10-22-2023 Patient's home Note SITUATION: Long Term SOC visit completed today. only patient present [...] laminectomy on 09/25 and then went to [facility] for rehab. He returned home on 10/19. [...] on edge of bed for review of [facility] booklet and signed consent. SN then assessed [...] be here after she gets home from scientologist. Pt has a lower back incision that is covered with a ABD pad and has lidocaine patches to either side(placed on 10/19). All of this was removed by SN. Incision is well approximated and secured with steristrips. There is a small opening at most proximal area that has a scant amount of serous drainage and pt was placed on cephalexin before dc by [facility]. Immediate area is slightly red but does [...] and pt and sister are VERY interested. HAIR MIXER referral is in place to address. SN will also have HAIR MIXER address any other resources such as PASSPORT; pt could benefit from personal care assistance as well as homemaking and ways to make him more independent from his sister. Pt's surgery was at [facility] and he will follow up with them [...] with his care but does live in [place] and is not available 24/10 See intervention [...] services: Patient agreeable to PT, OT and HAIR MIXER referrals. Patient declined N/A referrals. Additional concerns to be followed up on: NONE Next visit to focus on (be specific): incision check, CP assessment, continue diabetic teaching, follow up on HAIR MIXER referral for community resources. [facility] Work Phone: 10-21-2023 Miscellaneous Notes Patient accepted and confirmed home health start of care (SOC) for 10/22/23. Visit time established. documented in this encounter [facility] 10-21-2023 Telephone encounter Note Patient accepted and confirmed home health start of care (SOC) for 10/22/23. Visit time established. [facility] Work Phone: 10-20-2023 Telephone encounter Note Called patient to confirm and schedule start of care visit. No answer. Left voicemail [facility] 10-20-2023 Miscellaneous Notes Called patient to confirm and schedule start of care visit. No answer. Left voicemail documented in this encounter [facility] 10-18-2023 Note [facility] 10-18-2023 Note [facility] 10-17-2023 Note [facility] 10-15-2023 Note HNO ID: [id number] Author: JARETT MCMULLEN RN Service: Nursing Author Type: Registered Nurse Type: Nursing Progress Note Filed: 10/15/2023 12:28 Note Text: Service dog in to see patient at this time. [facility] 10-13-2023 Note [facility] 10-13-2023 Telephone encounter Note Date/Time: 10/13/2023 9:21 AM Spoke with Janell Ashton @ phone #: [phone] - Preferred # for contact: [phone] Have you received help from a home care company in the last 60 days? NO Are you agreeable to [facility] services? YES What address will we be seeing you at? [address] [address] Do you have any upcoming appointments or things we need to schedule around? 10/20/23, 10/25/23 Do you have a teachable CG or can you manage your care independently? Independently FLU SHOT NOT SURE WHERE [facility] Work Phone: 10-13-2023 Miscellaneous Notes Date/Time: 10/13/2023 9:21 AM Spoke with Janell Ashton @ phone #: [phone] - Preferred # for contact: [phone] Have you received help from a home care company in the last 60 days? NO Are you agreeable to [facility] services? YES What address will we be seeing you at? [address] [facility] [address] Do you have any upcoming appointments or things we need to schedule around? 10/20/23, 10/25/23 Do you have a teachable CG or can you manage your care independently? Independently FLU SHOT NOT SURE WHERE Called pt and sister Janell, left messages to call office, wanted to confirm home care services. Savanna Mayorga LPN documented in this encounter [facility] 10-12-2023 Telephone encounter Note Called and spoke with Shelia in providers office, she confirmed will follow for services. Savanna Mayorga LPN [facility] Work Phone: 10-12-2023 Miscellaneous Notes Called and spoke with Shelia in providers office, she confirmed will follow for services. Savanna Mayorga LPN documented in this encounter [facility] 10-12-2023 Telephone encounter Note Called pt and sister Janell, left messages to call office, wanted to confirm home care services. Savanna Mayorga LPN [facility] Work Phone: 10-09-2023 Note [facility] 10-06-2023 Note [facility] 10-04-2023 Note [facility] 08-04-2023 Telephone encounter Note Spoke with José Manuel Ashton's on August 04, 2023. Informed of results / instructions as stated above. Maryuri LAMBERT Romero states she will be taking José Manuel to a Airfield Services Officer for his potassium but he will still have to follow up here for his A1c. CLOSED [facility] 08-04-2023 Miscellaneous Notes Spoke with José Manuel Ashton's on August 04, 2023. Informed of results / instructions as stated above. Maryuri Romero MA states she will be taking José Manuel to a Airfield Services Officer for his potassium but he will still have to follow up here for his A1c. CLOSED Called patients home and left VM to call back office at [phone]. Please give message below. Thank you I [...] patient is scheduled for surgery at the [facility] on 08/08/23. They are requesting surgical clearance for diabetes from Dr Peterson. We have not received their fax as of yet. Recommended she have them re-fax the form. Also, apparently he had recent labs drawn with [facility] including an updated A1c, recommended she have [...] results to proceed. documented in this encounter [facility] 08-03-2023 Telephone encounter Note Called patients home and left VM to call back office at [phone]. Please give message below. [facility] 08-03-2023 Telephone encounter Note Thank you I [...] received anything from the anaesthesia/surgical team HH [facility] Work Phone: 08-01-2023 Telephone encounter Note Pt called and stated that the Flomax capsules gets stuck in throat so he can't take it and would like it to be in tablet form or change medication. Pt also stated that he has not have the Proscar and would need a Rx for that, please advise. Julieta odonnell MA [facility] 08-01-2023 Miscellaneous Notes Pt called and stated that the Flomax capsules gets stuck in throat so he can't take it and would like it to be in tablet form or change medication. Pt also stated that he has not have the Proscar and would need a Rx for that, please advise. Julieta odonnell MA documented in this encounter [facility] 07-28-2023 Telephone encounter Note Received a call from patients (Janell) she state's patient is scheduled for surgery at the [facility] on 08/08/23. They are requesting surgical clearance for diabetes from Dr Peterson. We have not received their fax as of yet. Recommended she have them re-fax the form. Also, apparently he had recent labs drawn with [facility] including an updated A1c, recommended she have [...] await documents and lab results to proceed. 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 Assessment and Plan: Microhematuria- prior w/u neg, [...] surgery PSA ordered documented in this encounter [facility] 06-22-2023 History of Present illness Narrative Images [...] diabetes, hypertension, hyperlipidemia, depression, colon to [facility] on 05/23/23 with polyp, lumbar radiculopathy, history [...] quittin.2 Smokeless tobacco: Never Tobacco comments: Smokes [place] Vaping Use Vaping Use: Never used Substance [...] No exam performed LAB DATA Latest Ref Rng 05/24/2023 05/25/2023 [...] Review Reviewed by Sebas Ocampo MD, Ph.D ([id number]) Comment (Serum Prot Electro) A reflex test [...] 3,715.7 Albumin/Creat Ratio <30 mg/g 5,008 (H) Belcher Free, Serum 3.3 - 19.4 mg/L 57.0 (H) Lambda Free, Serum 5.7 - 26.3 mg/L 36.1 (H) K/L Ratio, Serum 0.26 - 1.65 1.58 DNA Antibody <=200 IU/mL 16 DNA Antibody Qualitative Interpretation Negative Negative MPA Result No M protein is identified. No M protein is identified. Staff Review ([facility]) Reviewed by Sebas Ocampo MD, Ph.D ([id number]) C3 86 - 166 mg/dL 147 C4 [...] follow-ups on file. documented in this encounter [facility] 06-20-2023 Evaluation note Diagnosis Stage 3a chronic kidney disease (HCC)- Primary Hypertension, essential Unspecified essential hypertension Vitamin D deficiency Unspecified vitamin D deficiency Other proteinuria Secondary hyperparathyroidism (HCC) Secondary hyperparathyroidism (of renal origin) documented in this encounter [facility]03-11-2024 NoteHNO ID: [id number] Author: KANWAL CALLE RN Service: Nursing Author Type: Registered Nurse Type: Nursing Progress Note Filed: 06/12/2023 14:16 Note Text: Other: watched channel 95 fall video and verballized understanding.[facility]03-11-2024 History of Past illness Narrative* [...] of this encounter (statuses as of 06/20/2023) [facility]03-11-2024 History of Past illness Narrative* Problem Noted [...] of this encounter (statuses as of 06/22/2023) [facility]03-11-2024 History of Past illness Narrative* Problem Noted [...] of this encounter (statuses as of 07/13/2023) [facility]03-09-[address] [facility]03-09-2024 NoteHNO ID: [id number] Author: NOTE, INTERFACE, ? Service: ? Author Type: ? Type: Progress Notes Filed: 06/10/2023 03:42 Note Text: Epic Scheduled Downtime: 06/10/2023 1:00:00 AM to 06/10/2023 3:24:00 AM[facility]03-07-[address] [facility]03-06-[address] [facility]03-04-2024 Note [facility]03-03-[address] [facility] 06-03-[address] [facility]03-01-[address] [facility]02-27-[address] [facility]02-26-[address] [facility]02-25-[address] [facility]02-20-[address] [facility]02-20-2024 History of Present illness Narrative* Jen Bergman, LEATHA - 05/23/2023 1:10 PM EST PRIMARY CARE [...] YES Jen Bergman RN documented in this encounterFirelands [facility] History of Present illness Narrative* Mónica Peterson [...] quittin.1 Smokeless tobacco: Never Tobacco comments: Smokes [place] Vaping Use Vaping Use: Never used Substance [...] DAILY (6 AM). 30 tablet 2 Insulin Bee, Disposable, (COMFORT EZ PEN NEEDLES) 29 gauge [...] - Moderate This note was created using Poptent dictation software. You may find errors that were missed during proofreading. They are purely unintentional and if there are any concerns regarding this dictation, please do not hesitate to contact the dictating provider for clarification. Mónica Peterson MD documented in this encounterFirelands [facility]02-16-[address] [facility]02-16-2024 History of Present illness Narrative* Jen Bergmna RN - 05/19/2023 2:42 PM EST AG [...] 10/05/2022 Urine Albumin:Creatinine Ratio 01/23/2023 HbA1C 02/01/2023 Licensed Veterinary Technician plan for next outreach: Will follow-up in about a month. Signature: Jen Bergman RN May 19, 2023 documented in this encounterFirelands [facility]02-09-2024 Miscellaneous Notes* Telephone Encounter - Elisabeth Parekh - 05/12/2023 8:10 AM EST Spoke to patients sister who stated she handles calls for José Manuel . Notified of canceled appt due to provider being out of office. She did not want to reschedule the appointment. Thanks Elisabeth Parekh documented in this encounterFirelands [facility]12-05-2023 Miscellaneous Notes* Telephone Encounter - Lily Segovia - 03/07/2023 12:25 PM ESTSummary: appointment cancellation Left voicemail at [phone] about rescheduling appt with Dr. oGdinez. Left phone number for patient to call in. Tmr 03-07-23 12:23pm documented in this encounterFirelands [facility]10-27[facility]23 History of Present illness Narrative* Jen Bergman [...] Understands and follows DASH diet Weight mgmt/activity Licensed Veterinary Technician plan for next outreach: Will follow-up in about 1 month. Signature: Jen Bergman RN January 27, 2023 documented in this encounterFirelands [facility]10-23-2023 History of Present illness Narrative* Mark Godinez [...] quittin.8 Smokeless tobacco: Never Tobacco comments: Smokes [place] Vaping Use Vaping Use: Never used Substance [...] 8 hours as needed for nausea/vomiting. Insulin Bee, Disposable, (COMFORT EZ PEN NEEDLES) 29 gauge [...] Injection. Mark Godinez MD documented in this encounterFirelands [facility]10-06-2023 Miscellaneous Notes* Telephone Encounter - Valery Mcintyre [...] Return call to if other than patient: sister- Janell Best contact number: [phone] Thank you, Rebecca Segundo January 06, 2023 10:09 AM documented in this encounterFirelands [facility]09-22-2023 Miscellaneous Notes* Telephone Encounter - Kenya Marrero - 12/23/2022 4:50 PM EDT Confirmation number: [id number] Consult to Pain Management Gave patient phone number to call as well, documented in this encounterFirelands [facility] Medical [facility]09-22-2023 History of Present illness Narrative* Belgica Vega DO - 12/23/2022 3:43 PM EDT Images from the original note were not included. Belgica Vega [address] [facility] [address] [place] [address] Visit Date: December 23, 2022 Mr.Jim Najma Ashton Date of : 1960 MRN/E #: [id number] History of Present Illness José Manuel Ashton [...] it.States sometimes takes trulicity.Patient to see new measurement advisor in [place] March 21, 2023. Pt indicates Janie Pickett in [place], he doesn't want to go to [place]. Pt indicates is more worried about pain [...] 01/04/23. Per chart review patient to see [place] [facility] December 29, 2022 Patient has history [...] of precordial pain, OTT, hypertension. Patient saw member service specialist October 13, 2022..Patient had stress test [...] spine, referred him to spine and pain [place].. Patient seeing pain management patient to see spine medicine January 04, 2023 patient is being prescribed Roxicodone Flexeril and Lidoderm. Per Janell. Dr. [facility] was rxing his oxycodone, and flexercil. Pt [...] MRI pelvis 08/11/21:Results MRI PELVIS WO/W IVCON (Acc#[id number]) (Order [id number]) Patient Info Patient Name Sex José Manuel Holm ([id number]) Male 1960 08/11/2021 5:06 PM - Radiology, [place] In Impression IMPRESSION: Suggestion of postoperative changes in the mid rectal wall. No tumor was identified on the preoperative exam, no suspicious lesion on this exam. No pelvic lymphadenopathy. Pt had pelvic xr 07/01/22: Results XR PELVIS 1V AP (Order [id number]) Patient Info Patient Name Sex José Manuel Holm ([id number]) Male 1960 07/01/2022 1:45 PM - Peiffer, Binh R, DO Results-Findings AP pelvis x-ray taken. No [...] Per note , was seen by Dr. Perea in past, lost to fu. Referred to [...] quittin.7 Smokeless tobacco: Never Tobacco comments: Smokes [place] Vaping Use Vaping Use: Never used Substance [...] 8 hours as needed for nausea/vomiting. Insulin Bee, Disposable, (COMFORT EZ PEN NEEDLES) 29 gauge [...] to the nearest ED. documented in this encounterFirelands [facility]08-31-2023 History of Present illness Narrative* Dannie Kincaid Seating Upholsterer - 12/01/2022 10:00 AM EDT Lexiscan nuclear stress test completed. Patient verbalized understanding of test and pain scale. IVstarted by nursing staff prior to testing and removed by nursing staff at test end. documented in this encounterFirelands Regional Medical Center [facility] Campus08-31-2023 Miscellaneous Notes* Addendum Note - Celena Rendon RN - 12/01/2022 9:00 AM EDTEncounter addended by: Celena Rendon, RN on: 12/01/2022 11:21 AM Actions taken: Flowsheet accepted, MAR administration accepted documented in this encounterFirelands Regional Medical Center [facility]08-24-2023 History of Present illness Narrative* Jen Bergman [...] Weight mgmt/activity No change (09/23/2020) Concerns: N/A Licensed Veterinary Technician plan for next outreach: Will follow up in about a month. Signature Jen Bergman RN November 24, 2022 documented in this encounterFirelands Regional Medical Center [facility]08-16-2023 Miscellaneous Notes* Telephone Encounter - Liyah Lora [...] with any information. Was Patient Referred to [facility]/Seek Emergency Treatment (Y/N): N Did Patient Agree (Y/N): N/A Was An Attempt Made To Transfer The Patient To The Office (Y/N): N Were You Able To Reach Someone At The Office (Y/N): N/A If Yes - Patient Was Transferred To (Caregivers Name): N/A If No - Which [facility] AC Leadership Model Maker Plaster Did You Speak With Regarding This Patient: N/A Was an appointment scheduled (Y/N): N Reason patient was requesting visit (RFV/signs and symptoms/diagnosis) : Medication Refill Request Person calling if other than patient: Self Return call to if other than patient: Self Best contact number: [phone] Thank you, Wilfredo Cartwright November 14, 2022 1:56 PM documented in this encounterFirelands Regional Medical [facility]08-10-2023 Miscellaneous Notes* Telephone Encounter - Candice Braun MD - 11/10/2022 7:00 AM EDT Reviewed all notes and labs. 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 He is already an established patient in [facility] practice. Of note, he was a no-show in February 2022. Plan: Please refer patient back to [place] office to his original provider since he [...] 09, 2022 2:16 PM documented in this encounterFirelands Regional Medical [facility]08-07-2023 Miscellaneous Notes* Telephone Encounter - Griselda Mayfield - 11/07/2022 8:01 AM EDT Consult to Neurology Confirmation number: [id number] documented in this [facility]08-04-2023 Miscellaneous Notes* Telephone Encounter - Kenya Marrero - 11/04/2022 4:15 PM EDT Confirmation number: [id number] Consult to Dermatology documented in this encounterFirelands Regional Medical [facility]08-04-2023 Miscellaneous Notes* Telephone Encounter - Kenya Marrero - 11/04/2022 3:20 PM EDT Confirmation number: [id number] Consult to Endocrinology documented in this encounterFirelands Regional Medical Center [facility]08-04-2023 History of Present illness Narrative* Belgica Vega DO - 11/04/2022 3:04 PM EDT Images from the original note were not included. Belgica Vega [address] [address] Visit Date: November 04, 2022 Mr.Jim Najma Ashton Date of : 1960 MRN/E #: [id number] History of Present Illness José Manuel Ashton [...] Pt didn't want to see derm in [place] or [place]. Wasn't referred to [place]. Patient does have history of diabetes and [...] Dr. Baig, doesn't want to go to [place]. Patient has history of rectal cancer. Patient is status post colonoscopy October 24, [address] Ahmadi.Number of precancerous polyps were found on this examination and we shouldrepeat the colonoscopy in 1 year. Artem Ahmadi MD October 28, 2022 10:05 AM Patient has history of precordial pain, OTT, hypertension. Patient saw member service specialist October 13, 2022. Lexiscan nuclear stress test has been ordered. Per note patient was asked to get referral for measurement advisor and dietitian to aggressively get his diabetes [...] quittin.5 Smokeless tobacco: Never Tobacco comments: Smokes [place] Vaping Use Vaping Use: Never used Substance [...] DAILY (6 AM). 30 tablet 2 Insulin Bee, Disposable, (COMFORT EZ PEN NEEDLES) 29 gauge [...] Monocytes % 11/01/2022 8.1 % Final Abs [place] 11/01/2022 0.54 <0.87 k/uL Final Eosinophils % [...] Desk Reference: National Heart, Lung, and Blood [place]. National Institutes of Health. 2001: NIH Publication [...] (H) 74 - 99 mg/dL Final The [place] Diabetes Association (ADA) provides guidance for cutoff [...] Standards of Medical Care in Diabetes 2016, [place] [employer]. Diabetes Care. 2016.39(Suppl 1). BUN [...] 13.6 (H) 4.3 - 5.6 % Final [place] [employer] guidelines indicate that patients with HgbA1c in the range 5.7-6.4% are at increased risk for development of diabetes, and intervention by lifestyle modification may be beneficial. HgbA1c greater or equal to 6.5% is considered diagnostic of diabetes. Estimated Average Glucose 11/01/2022 344 mg/dL Final eAG: (Estimated average glucose) is a calculated value from HgbA1c and is wholesale representative of the average blood glucose level [...] exercise - LISINOPRIL 10 MG TABLET [place] Vega, Return in about 1 month (around 12/05/2022) for Medication follow-up, Diabetes, Hypertension, hyperlipidemia. If symptoms persist, worsen, or no improvement, patient is to call 911 and/or go to the nearest ED. documented in this encounterFirelands [facility]08-02-2023 Miscellaneous Notes* Telephone Encounter - Belgica Vega DO - 11/02/2022 7:44 PM EDT Please notify patient received lab, low-fat low-cholesterol diet recommended. Low-carb low concentrated sweets diet recommended, A1c has increased to 13.6 Can discuss results at appointment Thank you, Belgica Vega D.O. documented in this encounterFirelands [facility]08-02-2023 History of Present illness Narrative* Noé Kennedy [...] (no units) Date Value 09/15/2022 1+ Specific [place], Ur (no units) Date Value 09/15/2022 1.020 [...] mouth once daily.^Disp: 90 capsule^Rfl: 0 Insulin Bee, Disposable, (COMFORT EZ PEN NEEDLES) 29 gauge [...] quittin.5 Smokeless tobacco: Never Tobacco comments: Smokes [place] Vaping Use Vaping Use: Never used Substance [...] neg 02/17/2020 PSA 0.75, no Fhx of [employer] Assessment and Plan: Microhematuria- prior w/u neg, [...] cont meds for now documented in this encounterFirelands [facility]08-02-2023 Miscellaneous Notes* Telephone Encounter - Hazel Gomez MA - 11/02/2022 11:34 AM EDT LVM. Result was mailed to pt's home address. Hazel Gomez MA November 02, 2022 11:34 AM [...] 28, 2022 10:05 AM documented in this encounterFirelands [facility]08-01-2023 Miscellaneous Notes* Telephone Encounter - Jen Bergman RN - 11/01/2022 11:52 AM EDT Martin Vega. I spoke w/ pt this morning. [...] has an appointment on 11/04/22. Thanks. Jen Bergman, RN documented in this encounterFirelands [facility]08-01-2023 History of Present illness Narrative* Jen Bergman [...] Weight mgmt/activity No change (09/23/2020) Concerns: N/A Licensed Veterinary Technician plan for next 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 Signature Jen Bergman RN November 01, 2022 documented in this encounterFirelands [facility]07-14-2023 Miscellaneous Notes* Telephone Encounter - [place] Vega [...] advise. Denia Anders LPN documented in this encounterFirelands [facility] Medical [facility]07-13-2023 History of Present illness Narrative* Sukumar Toney [...] quittin.5 Smokeless tobacco: Never Tobacco comments: Smokes [place] Vaping Use Vaping Use: Never used Substance [...] tablet by mouth DAILY (6 AM). Insulin Bee, Disposable, (COMFORT EZ PEN NEEDLES) 29 gauge [...] to get a referral to see an measurement advisor and a dietitian to aggressively get his [...] accordingly. Sukumar Toney MD documented in this encounterFirelands [facility]07-13-2023 Nurse Note* Lulu Owen MA - 10/13/2022 9:37 AM EDT Patient has no cardiac complaints today. Lulu Owen CMA documented in this encounterFirelands [facility]07-12-2023 History of Present illness Narrative* Jen Bergman [...] Weight mgmt/activity No change (09/23/2020) Concerns: N/A Licensed Veterinary Technician plan for next 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 Signature Jen Bergman RN October 12, 2022 documented in this encounterFirelands [facility]07-10-2023 History of Present illness Narrative* Mark Godinez [...] quittin.5 Smokeless tobacco: Never Tobacco comments: Smokes [place] Vaping Use Vaping Use: Never used Substance [...] 8 hours as needed for nausea/vomiting. Insulin Bee, Disposable, (COMFORT EZ PEN NEEDLES) 29 gauge [...] which may represent strain or possibly myositis. Installer Soft Top: [facility] Transcribe Date/Time: Sep 01 2022 7:57A Dictated by : DOREEN GRAJEDA MD This examination was interpreted and the report reviewed and electronically signed by: DOREEN GRAJEDA MD on Sep 01 2022 8:08AM EST Results-Findings * * *Final Report* * * DATE OF EXAM: Aug 30 2022 10:22AM [facility] [id number] - MRI ARTHROGRAM HIP LT / PROCEDURE REASON: multiple diagnoses * * * * Physician Interpretation * * * * LEFT HIP MRI ARTHROGRAM CLINICAL INDICATION: Left hip pain. Concern for labral tear or flexor tendon injury. COMPARISON: MRI left hip 09/09/2020 TECHNIQUE: Large durbb-[id number]-dbdd coronal T1, axial and coronal STIR sequences of the pelvis and both hips. Small qfyys-lx-pujh coronal, sagittal and oblique axial fat saturated [...] labrum is limited due to the large [id number]-[id number]. Sacroiliac joints and symphysis pubis are maintained. [...] bleeding, clots, bleeding disorders. 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 Signature Jen Bergman RN September 29, 2022 documented in this encounterFirelands [facility]06-28-2023 Miscellaneous Notes* Telephone Encounter - Kenya Marrero - 09/28/2022 12:22 PM EDT Confirmation number: [id number] Consult to Cardiology Confirmation number: [id number] Consult to Dermatology Confirmation number: [id number] Consult to Nephrology documented in this encounterFirelands [facility] Medical [facility]06-28-2023 History of Present illness Narrative* Belg[place] Vega DO - 09/28/2022 11:06 AM EDT Transitional Care Management TCM Eligibility Documentation The following information was gathered during the initial Patient Outreach Encounter. Date of Outreach: 09/19/2022 Outreach Attempt 1: Contact Made Date of Discharge 09/16/2022 Some recent data might be hidden Summary Discharged from: [facility] Admit Date: September 14, 2022, [...] had MRI lumbar spine:Results MRI LUMBAR SPINE KATHERIN RAMIREZ (Acc#[id number]) (Order [id number]) Patient Info Patient Name Sex José Manuel Ashton ([id number]) Male 1960 09/15/2022 4:43 PM - Radiology, [...] surgeon. Pt to see Dr. Rider next Monday, spine surgeon per Janell. Patient has history [...] Pt hasnt gone yet. To seepain management 7/10/23. Had hypertensive urgency likely thought to be [...] Diabetes, general surgery visit documented in this encounterFirelands [facility]06-23-2023 History of Present illness Narrative* [place] [...] quittin.4 Smokeless tobacco: Never Tobacco comments: Smokes [place] Vaping Use Vaping Use: Never used Substance [...] 8 hours as needed for nausea/vomiting. Insulin Bee, Disposable, (COMFORT EZ PEN NEEDLES) 29 gauge [...] needed. [place] DO documented in this encounterFirelands [facility]06-16-2023 History of Present illness Narrative* Meera Contreras, OD - 09/16/2022 2:21 PM EDT Assessment/Plan: 1. [...] 10/21/2022 final post op documented in this encounterFirelands [facility]06-16-2023 Instructions* Patient Instructions* Meera Contreras, OD - 09/16/2022 2:19 PM EDT RIGHT EYE: Stop Ciprofloxacin (flores) Continue Ketorolac (rasmussen) and Prednisolone (pink) 3 times daily x 1 week then 2 times daily x 1 week then 1 time daily x 1 week then stop STOP LEFT EYE drops documented in this encounterFirelands [facility]06-08-2023 History of Past illness Narrative* Problem Noted Date Resolved Date Nuclear senile cataract of right eye 09/08/2022 09/08/2022 Nuclear sclerotic cataract of left eye 3 08/18/2022 Abdominal discomfort 01/18/2022 01/19/2022 Nuclear senile cataract of both eyes 11/05/2021 09/09/2022 Microscopic hematuria 03/08/2021 01/17/2022 Weakness 05/05/2020 06/15/2020 Decreased mobility and endurance 05/05/2020 06/15/2020 documented as of this encounter (statuses as of 09/16/2022) [facility] History of Past illness Narrative* Problem Noted Date Resolved Date Nuclear senile cataract of right eye 09/08/2022 09/08/2022 Nuclear sclerotic cataract of left eye 3 08/18/2022 Abdominal discomfort 01/18/2022 01/19/2022 Nuclear senile cataract of both eyes 11/05/2021 09/09/2022 Microscopic hematuria 03/08/2021 01/17/2022 Weakness 05/05/2020 06/15/2020 Decreased mobility and endurance 05/05/2020 06/15/2020 documented as of this encounter (statuses as of 09/28/2022) [facility] of Past illness Narrative* Problem Noted Date Resolved Date Nuclear senile cataract of right eye 09/08/2022 09/08/2022 Nuclear sclerotic cataract of left eye 3 08/18/2022 Abdominal discomfort 01/18/2022 01/19/2022 Nuclear senile cataract of both eyes 11/05/2021 09/09/2022 Microscopic hematuria 03/08/2021 01/17/2022 Weakness 05/05/2020 06/15/2020 Decreased mobility and endurance 05/05/2020 06/15/2020 documented as of this encounter (statuses as of 09/28/2022) [facility] of Past illness Narrative* Problem Noted Date Resolved Date Nuclear senile cataract of right eye 09/08/2022 09/08/2022 Nuclear sclerotic cataract of left eye 3 08/18/2022 Abdominal discomfort 01/18/2022 01/19/2022 Nuclear senile cataract of both eyes 11/05/2021 09/09/2022 Microscopic hematuria 03/08/2021 01/17/2022 Weakness 05/05/2020 06/15/2020 Decreased mobility and endurance 05/05/2020 06/15/2020 documented as of this encounter (statuses as of 09/29/2022) [facility] of Past illness Narrative* Problem Noted Date Resolved Date Nuclear senile cataract of right eye 09/08/2022 09/08/2022 Nuclear sclerotic cataract of left eye 3 08/18/2022 Abdominal discomfort 01/18/2022 01/19/2022 Nuclear senile cataract of both eyes 11/05/2021 09/09/2022 Microscopic hematuria 03/08/2021 01/17/2022 Weakness 05/05/2020 06/15/2020 Decreased mobility and endurance 05/05/2020 06/15/2020 documented as of this encounter (statuses as of 09/30/2022) [facility] of Past illness Narrative* Problem Noted Date Resolved Date Nuclear senile cataract of right eye 09/08/2022 09/08/2022 Nuclear sclerotic cataract of left eye 08/18/2022 Abdominal discomfort 01/18/2022 01/19/2022 Nuclear senile cataract of both eyes 11/05/2021 09/09/2022 Microscopic hematuria 03/08/2021 01/17/2022 Weakness 05/05/2020 06/15/2020 Decreased mobility and endurance 05/05/2020 06/15/2020 documented as of this encounter (statuses as of 10/04/2022) [facility] of Past illness Narrative* Problem Noted Date Diagnosed Date Resolved Date Nuclear senile cataract of right eye 09/08/2022 09/08/2022 Nuclear sclerotic cataract of left eye 08/18/2022 08/18/2022 Abdominal discomfort 01/18/2022 022 Nuclear senile cataract of both eyes 11/05/2021 09/09/2022 Microscopic hematuria 03/08/20212021 Weakness 05/05/2020 06/15/2020 Decreased mobility and endurance 05/05/2020 06/15/2020 documented as of this encounter (statuses as of 10/11/2022) [facility] of Past illness Narrative* Problem Noted Date Diagnosed Date Resolved Date Nuclear senile cataract of right eye 09/08/2022 09/08/2022 Nuclear sclerotic cataract of left eye 08/18/2022 08/18/2022 Abdominal discomfort 01/18/2022 102 022 Nuclear senile cataract of both eyes 11/05/2021 09/09/2022 Microscopic hematuria 03/08/20212021 Weakness 05/05/2020 06/15/2020 Decreased mobility and endurance 05/05/2020 06/15/2020 documented as of this encounter (statuses as of 10/13/2022) [facility] of Past illness Narrative* Problem Noted Date Diagnosed Date Resolved Date Nuclear senile cataract of right eye 09/08/2022 09/08/2022 Nuclear sclerotic cataract of left eye 08/18/2022 08/18/2022 Abdominal discomfort 01/18/20222 022 Nuclear senile cataract of both eyes 11/05/2021 09/09/2022 Microscopic hematuria 03/08/20212021 Weakness 05/05/2020 06/15/2020 Decreased mobility and endurance 05/05/2020 06/15/2020 documented as of this encounter (statuses as of 10/13/2022) [facility] of [facility] illness Narrative* Problem Noted Date Diagnosed Date Resolved Date Nuclear senile cataract of right eye 09/08/2022 09/08/2022 Nuclear sclerotic cataract of left eye 08/18/2022 08/18/2022 Abdominal discomfort 01/18/2022 022 Nuclear senile cataract of both eyes 11/05/2021 09/09/2022 Microscopic hematuria 03/08/20212021 Weakness 05/05/2020 06/15/2020 Decreased mobility and endurance 05/05/2020 06/15/2020 documented as of this encounter (statuses as of 10/15/2022) [facility] of [facility] illness Narrative* Problem Noted Date Diagnosed Date Resolved Date Nuclear senile cataract of right eye 09/08/2022 09/08/2022 Nuclear sclerotic cataract of left eye 08/18/2022 08/18/2022 Abdominal discomfort 01/18/2022 022 Nuclear senile cataract of both eyes 11/05/2021 09/09/2022 Microscopic hematuria 03/08/20212021 Weakness 05/05/2020 06/15/2020 Decreased mobility and endurance 05/05/2020 06/15/2020 documented as of this encounter (statuses as of 11/01/2022) [facility] of [facility] illness Narrative* Problem Noted Date Diagnosed Date Resolved Date Nuclear senile cataract of right eye 09/08/2022 09/08/2022 Nuclear sclerotic cataract of left eye 08/18/2022 08/18/2022 Abdominal discomfort 01/18/2022 022 Nuclear senile cataract of both eyes 11/05/2021 09/09/2022 Microscopic hematuria 03/08/20212021 Weakness 05/05/2020 06/15/2020 Decreased mobility and endurance 05/05/2020 06/15/2020 documented as of this encounter (statuses as of 11/02/2022) [facility] of [facility] illness Narrative* Problem Noted Date Diagnosed Date Resolved Date Nuclear senile cataract of right eye 09/08/2022 09/08/2022 Nuclear sclerotic cataract of left eye 08/18/2022 08/18/2022 Abdominal discomfort 01/18/2022 022 Nuclear senile cataract of both eyes 11/05/2021 09/09/2022 Microscopic hematuria 03/08/20212021 Weakness 05/05/2020 06/15/2020 Decreased mobility and endurance 05/05/2020 06/15/2020 documented as of this encounter (statuses as of 11/03/2022) [facility] Narrative* Problem Noted Date Diagnosed Date Resolved Date Nuclear senile cataract of right eye 09/08/2022 09/08/2022 Nuclear sclerotic cataract of left eye 08/18/2022 08/18/2022 Abdominal discomfort 01/18/20222 022 Nuclear senile cataract of both eyes 11/05/2021 09/09/2022 Microscopic hematuria 03/08/20212021 Weakness 05/05/2020 06/15/2020 Decreased mobility and endurance 05/05/2020 06/15/2020 documented as of this encounter (statuses as of 11/03/2022) [facility] Narrative* Problem Noted Date Diagnosed Date Resolved Date Nuclear senile cataract of right eye 09/08/2022 09/08/2022 Nuclear sclerotic cataract of left eye 08/18/2022 08/18/2022 Abdominal discomfort 01/18/2022 022 Nuclear senile cataract of both eyes 11/05/2021 09/09/2022 Microscopic hematuria 03/08/20212021 Weakness 05/05/2020 06/15/2020 Decreased mobility and endurance 05/05/2020 06/15/2020 documented as of this encounter (statuses as of 11/04/2022) [facility] illness Narrative* Problem Noted Date Diagnosed Date Resolved Date Nuclear senile cataract of right eye 09/08/2022 09/08/2022 Nuclear sclerotic cataract of left eye 08/18/2022 08/18/2022 Abdominal discomfort 01/18/2022 022 Nuclear senile cataract of both eyes 11/05/2021 09/09/2022 Microscopic hematuria 03/08/20212021 Weakness 05/05/2020 06/15/2020 Decreased mobility and endurance 05/05/2020 06/15/2020 documented as of this encounter (statuses as of 11/05/2022) [facility] Narrative* Problem Noted Date Diagnosed Date Resolved Date Nuclear senile cataract of right eye 09/08/2022 09/08/2022 Nuclear sclerotic cataract of left eye 08/18/2022 08/18/2022 Abdominal discomfort 01/18/2022 022 Nuclear senile cataract of both eyes 11/05/2021 09/09/2022 Microscopic hematuria 03/08/20212021 Weakness 05/05/2020 06/15/2020 Decreased mobility and endurance 05/05/2020 06/15/2020 documented as of this encounter (statuses as of 11/05/2022) [facility] Narrative* Problem Noted Date Diagnosed Date Resolved Date Nuclear senile cataract of right eye 09/08/2022 09/08/2022 Nuclear sclerotic cataract of left eye 08/18/2022 08/18/2022 Abdominal discomfort 01/18/2022 022 Nuclear senile cataract of both eyes 11/05/2021 09/09/2022 Microscopic hematuria 03/08/20212021 Weakness 05/05/2020 06/15/2020 Decreased mobility and endurance 05/05/2020 06/15/2020 documented as of this encounter (statuses as of 11/07/2022) [facility] Narrative* Problem Noted Date Diagnosed Date Resolved Date Nuclear senile cataract of right eye 09/08/2022 09/08/2022 Nuclear sclerotic cataract of left eye 08/18/2022 08/18/2022 Abdominal discomfort 01/18/2022 022 Nuclear senile cataract of both eyes 11/05/2021 09/09/2022 Microscopic hematuria 03/08/20212021 Weakness 05/05/2020 06/15/2020 Decreased mobility and endurance 05/05/2020 06/15/2020 documented as of this encounter (statuses as of 11/07/2022) [facility] Narrative* Problem Noted Date Diagnosed Date Resolved Date Nuclear senile cataract of right eye 09/08/2022 09/08/2022 Nuclear sclerotic cataract of left eye 08/18/2022 08/18/2022 Abdominal discomfort 01/18/2022 022 Nuclear senile cataract of both eyes 11/05/2021 09/09/2022 Microscopic hematuria 03/08/20212021 Weakness 05/05/2020 06/15/2020 Decreased mobility and endurance 05/05/2020 06/15/2020 documented as of this encounter (statuses as of 11/10/2022) [facility] Narrative* Problem Noted Date Diagnosed Date Resolved Date Nuclear senile cataract of right eye 09/08/2022 09/08/2022 Nuclear sclerotic cataract of left eye 08/18/2022 08/18/2022 Abdominal discomfort 01/18/2022 022 Nuclear senile cataract of both eyes 11/05/2021 09/09/2022 Microscopic hematuria 03/08/20212021 Weakness 05/05/2020 06/15/2020 Decreased mobility and endurance 05/05/2020 06/15/2020 documented as of this encounter (statuses as of 11/16/2022) [facility] Narrative* Problem Noted Date Diagnosed Date Resolved Date Nuclear senile cataract of right eye 09/08/2022 09/08/2022 Nuclear sclerotic cataract of left eye 08/18/2022 08/18/2022 Abdominal discomfort 01/18/2022 022 Nuclear senile cataract of both eyes 11/05/2021 09/09/2022 Microscopic hematuria 03/08/20212021 Weakness 05/05/2020 06/15/2020 Decreased mobility and endurance 05/05/2020 06/15/2020 documented as of this encounter (statuses as of 11/22/2022) [facility] Narrative* Problem Noted Date Diagnosed Date Resolved Date Nuclear senile cataract of right eye 09/08/2022 09/08/2022 Nuclear sclerotic cataract of left eye 08/18/2022 08/18/2022 Abdominal discomfort 01/18/2022 022 Nuclear senile cataract of both eyes 11/05/2021 09/09/2022 Microscopic hematuria 03/08/20212021 Weakness 05/05/2020 06/15/2020 Decreased mobility and endurance 05/05/2020 06/15/2020 documented as of this encounter (statuses as of 11/25/2022) [facility] Narrative* Problem Noted Date Diagnosed Date Resolved Date Nuclear senile cataract of right eye 09/08/2022 09/08/2022 Nuclear sclerotic cataract of left eye 08/18/2022 08/18/2022 Abdominal discomfort 01/18/2022 022 Nuclear senile cataract of both eyes 11/05/2021 09/09/2022 Microscopic hematuria 03/08/20212021 Weakness 05/05/2020 06/15/2020 Decreased mobility and endurance 05/05/2020 06/15/2020 documented as of this encounter (statuses as of 2022) [facility] Narrative* Problem Noted Date Diagnosed Date Resolved Date Nuclear senile cataract of right eye 09/08/2022 09/08/2022 Nuclear sclerotic cataract of left eye 08/18/2022 08/18/2022 Abdominal discomfort 01/18/2022 022 Nuclear senile cataract of both eyes 11/05/2021 09/09/2022 Microscopic hematuria 03/08/20212021 Weakness 05/05/2020 06/15/2020 Decreased mobility and endurance 05/05/2020 06/15/2020 documented as of this encounter (statuses as of 2022) [facility] Narrative* Problem Noted Date Diagnosed Date Resolved Date Nuclear senile cataract of right eye 09/08/2022 09/08/2022 Nuclear sclerotic cataract of left eye 08/18/2022 08/18/2022 Abdominal discomfort 01/18/2022 022 Nuclear senile cataract of both eyes 11/05/2021 09/09/2022 Microscopic hematuria 03/08/20212021 Weakness 05/05/2020 06/15/2020 Decreased mobility and endurance 05/05/2020 06/15/2020 documented as of this encounter (statuses as of 12/24/2022) [facility] Narrative* Problem Noted Date Diagnosed Date Resolved Date Nuclear senile cataract of right eye 09/08/2022 09/08/2022 Nuclear sclerotic cataract of left eye 08/18/2022 08/18/2022 Abdominal discomfort 01/18/2022 022 Nuclear senile cataract of both eyes 11/05/2021 09/09/2022 Microscopic hematuria 03/08/20212021 Weakness 05/05/2020 06/15/2020 Decreased mobility and endurance 05/05/2020 06/15/2020 documented as of this encounter (statuses as of 12/24/2022) [facility] Narrative* Problem Noted Date Diagnosed Date Resolved Date Nuclear senile cataract of right eye 09/08/2022 09/08/2022 Nuclear sclerotic cataract of left eye 08/18/2022 08/18/2022 Abdominal discomfort 01/18/2022 022 Nuclear senile cataract of both eyes 11/05/2021 09/09/2022 Microscopic hematuria 03/08/20212021 Weakness 05/05/2020 06/15/2020 Decreased mobility and endurance 05/05/2020 06/15/2020 documented as of this encounter (statuses as of 01/07/2023) [facility] Narrative* Problem Noted Date Diagnosed Date Resolved Date Nuclear senile cataract of right eye 09/08/2022 09/08/2022 Nuclear sclerotic cataract of left eye 08/18/2022 08/18/2022 Abdominal discomfort 01/18/2022 022 Nuclear senile cataract of both eyes 11/05/2021 09/09/2022 Microscopic hematuria 03/08/20212021 Weakness 05/05/2020 06/15/2020 Decreased mobility and endurance 05/05/2020 06/15/2020 documented as of this encounter (statuses as of 01/24/2023) [facility] History of Past illness Narrative* Problem Noted Date Diagnosed Date Resolved Date Nuclear senile cataract of right eye 09/08/2022 09/08/2022 Nuclear sclerotic cataract of left eye 08/18/2022 08/18/2022 Abdominal discomfort 01/18/2022 022 Nuclear senile cataract of both eyes 11/05/2021 09/09/2022 Microscopic hematuria 03/08/20212021 Weakness 05/05/2020 06/15/2020 Decreased mobility and endurance 05/05/2020 06/15/2020 documented as of this encounter (statuses as of 01/27/2023) [facility] History of Past illness Narrative* Problem Noted Date Diagnosed Date Resolved Date Nuclear senile cataract of right eye 09/08/2022 09/08/2022 Nuclear sclerotic cataract of left eye 08/18/2022 08/18/2022 Abdominal discomfort 01/18/2022 022 Nuclear senile cataract of both eyes 11/05/2021 09/09/2022 Microscopic hematuria 03/08/20212021 Weakness 05/05/2020 06/15/2020 Decreased mobility and endurance 05/05/2020 06/15/2020 documented as of this encounter (statuses as of 03/07/2023) [facility] History of Past illness Narrative* Problem Noted Date Diagnosed Date Resolved Date Nuclear senile cataract of right eye 09/08/2022 09/08/2022 Nuclear sclerotic cataract of left eye 08/18/2022 08/18/2022 Abdominal discomfort 01/18/2022 022 Nuclear senile cataract of both eyes 11/05/2021 09/09/2022 Microscopic hematuria 03/08/20212021 Weakness 05/05/2020 06/15/2020 Decreased mobility and endurance 05/05/2020 06/15/2020 documented as of this encounter (statuses as of 05/12/2023) [facility] History of Past illness Narrative* Problem Noted Date Diagnosed Date Resolved Date Nuclear senile cataract of right eye 09/08/2022 09/08/2022 Nuclear sclerotic cataract of left eye 08/18/2022 08/18/2022 Abdominal discomfort 01/18/2022 022 Nuclear senile cataract of both eyes 11/05/2021 09/09/2022 Microscopic hematuria 03/08/20212021 Weakness 05/05/2020 06/15/2020 Decreased mobility and endurance 05/05/2020 06/15/2020 documented as of this encounter (statuses as of 05/19/2023) [facility] History of Past illness Narrative* Problem Noted Date Diagnosed Date Resolved Date Nuclear senile cataract of right eye 09/08/2022 09/08/2022 Nuclear sclerotic cataract of left eye 08/18/2022 08/18/2022 Abdominal discomfort 01/18/2022 022 Nuclear senile cataract of both eyes 11/05/2021 09/09/2022 Microscopic hematuria 03/08/20212021 Weakness 05/05/2020 06/15/2020 Decreased mobility and endurance 05/05/2020 06/15/2020 documented as of this encounter (statuses as of 05/23/2023) [facility] History of Past illness Narrative* Problem Noted Date Diagnosed Date Resolved Date Nuclear senile cataract of right eye 09/08/2022 09/08/2022 Nuclear sclerotic cataract of left eye 08/18/2022 08/18/2022 Abdominal discomfort 01/18/2022 022 Nuclear senile cataract of both eyes 11/05/2021 09/09/2022 Microscopic hematuria 03/08/20212021 Weakness 05/05/2020 06/15/2020 Decreased mobility and endurance 05/05/2020 06/15/2020 documented as of this encounter (statuses as of 05/23/2023) [facility] Miscellaneous Notes* Telephone Encounter - Simeon Fahad - 09/05/2022 10:03 AM EDT Called and informed patient to arrive at [address] [place] [address] at 11:45 am for 09/08/22 surgerywith Renetta Gannon MD. Explained that patient is not to arrive any earlier. Also reminded patient to refrain from eating or drinking for 8 hours prior to arrival for surgery, except for up to 12 oz of clear liquids up until 09:45 am, and to begin eyedrops in the right eye on09/06/22. Informed that [email or web address] and text messages do not contact them with the arrival time for surgery. If they receive a message from [employer], or a text to confirm an appointment, they are to make sure of the date for the appointment. Patient's sister states understanding and is agreeable. documented in this encounterFire[facility] History of Present illness Narrative* Binh Lake DO - 09/02/2022 1:31 PM EDT HPI: José Manuel Ashton is a 61 year old male who presents today follow-up of left hip pain and MRI results. He continues to be in intense pain. He is in pain /. The pain is in his low back [...] quittin.4 Smokeless tobacco: Never Tobacco comments: Smokes [place] Vaping Use Vaping Use: Never used Substance [...] 8 hours as needed for nausea/vomiting. Insulin Bee, Disposable, (COMFORT EZ PEN NEEDLES) 29 gauge [...] him to see the spine and pain [place] to discuss possible medications to help his intense chronic pain. I did give him 1 week of Percocet to try to help this pain. Total of half hour spent with this patient of which greater than 50% time spent in direct patient contact and coordination of care. Binh Lake DO documented in this encounterFire[facility] History of Present illness Narrative* Roz Pond [...] 30, 2022 10:19 AM documented in this encounterFirelands [facility] Surgical operation note* Brief Op Note - Lamonte Curtis MD, MD - 08/30/2022 8:17 AM EDT S/p successful left hip injection for magnetic resonance arthrogram. EBL < 1 cc. No immediate complication. documented in this encounterFirelands [facility] History of Past illness Narrative* Problem Noted Date Resolved Date Nuclear sclerotic cataract of left eye 3 08/18/2022 Abdominal discomfort 01/18/2022 01/19/2022 Microscopic hematuria 03/08/2021 01/17/2022 Weakness 05/05/2020 06/15/2020 Decreased mobility and endurance 05/05/2020 06/15/2020 documented as of this encounter (statuses as of 08/31/2022) [facility] History of Past illness Narrative* Problem Noted Date Resolved Date Nuclear sclerotic cataract of left eye 3 08/18/2022 Abdominal discomfort 01/18/2022 01/19/2022 Microscopic hematuria 03/08/2021 01/17/2022 Weakness 05/05/2020 06/15/2020 Decreased mobility and endurance 05/05/2020 06/15/2020 documented as of this encounter (statuses as of 08/31/2022) [facility] History of Past illness Narrative* Problem Noted Date Resolved Date Nuclear sclerotic cataract of left eye 3 08/18/2022 Abdominal discomfort 01/18/2022 01/19/2022 Microscopic hematuria 03/08/2021 01/17/2022 Weakness 05/05/2020 06/15/2020 Decreased mobility and endurance 05/05/2020 06/15/2020 documented as of this encounter (statuses as of 08/31/2022) [facility] History of Past illness Narrative* Problem Noted Date Resolved Date Nuclear sclerotic cataract of left eye 3 08/18/2022 Abdominal discomfort 01/18/2022 01/19/2022 Microscopic hematuria 03/08/2021 01/17/2022 Weakness 05/05/2020 06/15/2020 Decreased mobility and endurance 05/05/2020 06/15/2020 documented as of this encounter (statuses as of 09/02/2022) [facility] History of Past illness Narrative* Problem Noted Date Resolved Date Nuclear sclerotic cataract of left eye 3 08/18/2022 Abdominal discomfort 01/18/2022 01/19/2022 Microscopic hematuria 03/08/2021 01/17/2022 Weakness 05/05/2020 06/15/2020 Decreased mobility and endurance 05/05/2020 06/15/2020 documented as of this encounter (statuses as of 09/02/2022) [facility] History of Past illness Narrative* Problem Noted Date Resolved Date Nuclear sclerotic cataract of left eye 3 08/18/2022 Abdominal discomfort 01/18/2022 01/19/2022 Microscopic hematuria 03/08/2021 01/17/2022 Weakness 05/05/2020 06/15/2020 Decreased mobility and endurance 05/05/2020 06/15/2020 documented as of this encounter (statuses as of 09/05/2022) [facility]15[facility]2023 Miscellaneous Notes* Telephone Encounter - Meche Rowland - 08/15/2022 11:21 AM EDT Called and informed patient to arrive at [address] [facility], [address] at 7:40 am for 08/18/22 surgery with Renetta Gannon MD. Also reminded patient to refrain from eating or drinking for 8 hours prior to arrival for surgery, and to begin eyedrops in the left eye on 08/16/22. Patient states understanding and is agreeable. documented in this encounterFirelands [facility] History of Present illness Narrative* Belgica Roma Je, DO - 08/12/2022 3:46 PM EDT Images from the original note were not included. [facility] Primary Care Belgica Vega [address] [place] [address] [facility] Visit Date: August 12, 2022 Mr.Jim Najma Ashton Date of : 1960 MRN/E #: [id number] SUBJECTIVE: José Manuel Ashton is a 61 [...] (A) 4.2 - 5.6 % Final Comment: Location:Critical access hospital&[facility], [address] [place] [address], [facility] Point of care (POC) Hemoglobin A1c [...] specific diabetes management situations: The POC device assembler movement provides a normal range of 4.2% to 6.5% for the HGBA1C POC test. However, the [place] Diabetes Association guidelines indicate that patients with [...] quittin.3 Smokeless tobacco: Never Tobacco comments: Smokes [place] Vaping Use Vaping Use: Never used Substance [...] DAILY (6 AM). 30 tablet 2 Insulin Bee, Disposable, (COMFORT EZ PEN NEEDLES) 29 gauge [...] to the nearest ED. documented in this encounterFirelands [facility]05-[facility]-2023 Miscellaneous Notes* Telephone Encounter - Maria D Pepper - 08/09/2022 1:13 PM EDT Called patient again, left voicemail that he has an appointment tomorrow at 3 pm at the [address] [place] [address] [address] office location and to call [phone] if unable to keep the appointment or if any questions. * Telephone Encounter - Maria D Pepper - 08/09/2022 9:50 AM EDT Attempted to call patient to remind him of eye measurement appointment tomorrow, 08/10/22 at 3:00pm in the [place] office location at [address] [place] [address]. No answer, and unable to leave message, voicemail box full. documented in this [facility]04-27-2023 Miscellaneous Notes* Telephone Encounter - Meche Rowland - 07/28/2022 9:03 AM EDT Patient's sister Janell left message in surgery scheduling: Patient is sick and cannot come in todayfor IOL measurements (ascan). Called and spoke with Janell. Rescheduled appointment to 08/10/22 at 3pm. documented in this [facility]04-26-2023 Miscellaneous Notes* Telephone Encounter - Meche Rowland - 07/27/2022 10:37 AM EDT Called and confirmed appointment for IOL measurements (ascan) on 07/28/22 at 1:[address] [place] [address], [address]. The pre op history and physical exam has been scheduled for 08/12/22. Advised patient to call us at [phone] if any questions or if unable to keep the appointment. documented in this encounterFirelands [facility]04[facility] Instructions* Patient Instructions* Renetta Gannon MD - [...] the morning of surgery documented in this encounterFirelands [facility]04-13-[facility]23 History of Present illness Narrative* Renetta Gannon MD - 07/14/2022 12:58 PM EDT (E11.5711) Mild nonproliferative diabetic retinopathy of both eyes [...] Glare Testing: N/A Visual Function: José Manuel H Ramsier states that the decline in vision from the cataract impedes his abilities as listed in the HPI, as well as other activities of daily living. José Manuel Ashton has confirmed that he is no longer [...] patient was offered a surgery/procedure at a [facility] facility. The surgeon/proceduralist and patient have discussed [...] NO Previous refractive surgery: NO Preferred office: [place] Intracameral phenylephrine and vigamox Special notes Brimonidine CALL JANELL [phone] (sister, contact) Drops for Surgery: Polytrim (clear/white) OR Ciprofloxacin (folres) 1 drop to OPERATIVE EYE 4 x [...] if applicable, including the morning of surgery (H39.0878) Early dry stage nonexudative age-related macular degeneration of both eyes Comment: Mottling, no fluid Plan: Monitor RTC PEIOL OS then OD I have confirmed and edited as necessary the relevant ophthalmic history, ROS, and the neuro exam findings as obtained by others. I have seen and examined this patient. I have discussed the case and the management of this patient's care with the Resident/Fellow/Water Tester, if applicable. I also have reviewed and agree with the assessment and plan as stated above and agree with all of its relevant components. Renetta Gannon MD July 14, 2022 1:02 PM documented in this encounterFirelands [facility]03-31-2023 History of Present illness Narrative* Binh Lake, [...] quittin.2 Smokeless tobacco: Never Tobacco comments: Smokes [place] Vaping Use Vaping Use: Never used Substance [...] 8 hours as needed for nausea/vomiting. Insulin Bee, Disposable, (COMFORT EZ PEN NEEDLES) 29 gauge [...] bleeding, clots, bleeding disorders. documented in this encounterFirelands [facility]03-29-2023 History of Present illness Narrative* Belgica Vega DO - 06/29/2022 4:32 PM EDT Images from the original note were not included. Belgica Vega [address] [facility] [address] [place] [address] Visit Date: June 29, 2022 Mr.Jim Najma Ashton Date of : 1960 MRN/E #: [id number] History of Present Illness José Manuel Ashton [...] quittin.2 Smokeless tobacco: Never Tobacco comments: Smokes [place] Vaping Use Vaping Use: Never used Substance [...] DAILY (6 AM). 30 tablet 2 Insulin Bee, Disposable, (COMFORT EZ PEN NEEDLES) 29 gauge [...] Desk Reference: National Heart, Lung, and Blood [place]. National Institutes of Health. 2001: NIH Publication [...] (A) 74 - 99 mg/dL Final The [place] Diabetes Association (ADA) provides guidance for cutoff [...] Standards of Medical Care in Diabetes 2016, [place] Diabetes Association. Diabetes Care. 2016.39(Suppl 1). BUN [...] units of vitamin D daily,Which is available [id number] - CHOLECALCIFEROL (VITAMIN D3) 1,250 MCG (50,000 [...] to the nearest ED. documented in this encounterFirelands [facility]03-28-2023 Miscellaneous Notes* Telephone Encounter - Belgica Vega DO - 06/28/2022 6:15 PM EDT This encounter was opened in error. documented in this encounterFirelands [facility]03-22-2023 History of Present illness Narrative* Juancho Todd DO - 06/22/2022 7:18 AM EDT June 22, 2022 An order has been received for PAP titration study from Dr. Belgica Vega DO, A. Sleep Center Staff/Machine Shop Inspector Staff Orders. Visit prep complete - Please refer to the sleep study order (under procedures tab) for protocol details and special instructions. The sleep study is scheduled for 06/22/2022. Insurance: Payor: [facility] MEDICARE / Plan: [facility] DUAL COMPLETE HMO SNP / Product Type: Medicare / Payer/Plan Subscr Sex Relation Sub. Ins. ID Effective Group Num 1. [facility] MEDICARE * JOSÉ MANUEL ASHTON 1960 Male Self [id number] 04/03/22 [address] 2. MEDICAID [place] -* JOSÉ MANUEL ASHTON 1960 Male Self [id number] 11/04/21 [address] June 22, 2022 Standing PSG Orders signed [...] Juancho Todd DO 7:39 AM, 06/22/2022 Brice Sanchezon documented in this encounterFirelands [facility]03-01-2023 History of Present illness Narrative* Rory Mendoza MD - 06/01/2022 10:53 AM EST José Manuel Najma Ashton 1960 June 01, 2022 Diagnosis: Invasive [...] one time a week. 4capsule 0 Insulin Bee, Disposable, (COMFORT EZ PEN NEEDLES) 29 gauge [...] quittin.1 Smokeless tobacco: Never Tobacco comments: Smokes [place] Vaping Use Vaping Use: Never used Substance [...] nonspecific lung nodules/densities. 6 mm sclerotic focus [id number] rib, indeterminate. - Order CT chest wo IV contrast. If CT chest is unremarkable, follow up in 6 months with lab work prior to visit. Call for questions or concerns. Rory Mendoza MD I spent a total of 40 minutes on the date of the service which included preparing to see the patient, [id number] patient care, completing clinical documentation, obtaining and/or reviewing separately obtained history, performing a medically appropriate examination, counseling and educating the pat ient/family/caregiver, ordering medications, tests, or procedures, independently interpreting results (not separately reported), communicating results to the patient/family/caregiver, and care coordination (not separately reported). documented in this encounterFirelands [facility]02-16-2023 Miscellaneous Notes* Telephone Encounter - Griselda Rayo Saunders - 05/19/2022 8:56 AM EST Consult to Oncology Confirmation number: [id number] documented in this encounterFirelands Regional [facility]02-15-2023 History of Present illness Narrative* Belgica Vega DO - 05/18/2022 3:26 PM EST Images from the original note were not included. Belgica Brandon Je [address] [facility] [address] [place] [address] Visit Date: May 18, 2022 Mr.Jim Najma Ashton Date of : 1960 MRN/E #: [id number] History of Present Illness José Manuel Ashton [...] also has history of microalbuminuria. Patientdid see carpet weaver during January 2022. Per note indicates stage IIIa CKD presumed secondary to uncontrolled diabetes, uncontrolled hypertension and obstruction from BPH. Patient is not being prescr ibed medication by nephrology. Patient has history of hyperlipidemia. Cholesterol was 286 during September 2021 patient was prescribed Crestor 5 mg. 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 During last office visit which was a hospital discharge follow-up.. Patient had indicated previously he had did not know why he did not quill picking machine operator the Crestor. That medication has since dropped off of his med list. Patient was being prescribed Lipitor 40 mg by hospitalist at [facility].Pt isnt taking lipitor or Crestor... Cholesterol was [...] being prescribed Pt was referred to social media community manager recently. Patient indicates he has troubles remembering [...] quittin.1 Smokeless tobacco: Never Tobacco comments: Smokes [place] Vaping Use Vaping Use: Never used Substance [...] mouth once daily. 90 tablet 3 Insulin Bee, Disposable, (COMFORT EZ PEN NEEDLES) 29 gauge [...] (A) 74 - 99 mg/dL Final Comment: Location:Critical access hospital&[facility], [address] [place] [address] The Accu-Chek Inform II glucose meter has [...] (A) 4.2 - 5.6 % Final Comment: Location:[facility], [address] [place] [address] Point of care (POC) Hemoglobin A1c (HGBA1C) [...] specific diabetes management situations: The POC device assembler movement provides a normal range of 4.2% to 6.5% for the HGBA1C POC test. However, the [place] Diabetes Association guidelines indicate that patients with [...] 787.01, ICD10: R11.2 Persistent Patient informed of Zobasim Vega DO Return in about 1 month (around 06/15/2022) for Visit for re-check, Medication follow-up, Diabetes, Hypertension., Lab Encourage patient to schedule annual physical During November 2022,During birthmonth to help prompt memory If symptoms persist, worsen, or no improvement, patient is to call 911 and/or go to the nearest ED. documented in this encounterFirelands [facility]02-08-2023 History of Present illness Narrative* Jen Bergman [...] Weight mgmt/activity No change (09/23/2020) Concerns: N/A Licensed Veterinary Technician plan for next 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 Signature Jen Bergman RN May 11, 2022 documented in this encounterFirelands [facility]02-03-2023 Miscellaneous Notes* Telephone Encounter - BRANDIE Wolfe [...] me know. Thanks, Manjula documented in this encounterFirelands Regional Medical [facility]02-01-2023 History of Present illness Narrative* Noé Kennedy [...] (no units) Date Value 03/28/2022 4+ Specific [place], Ur (no units) Date Value 03/28/2022 1.015 [...] 1 tablet by mouth once daily. Insulin Bee, Disposable, (COMFORT EZ PEN NEEDLES) 29 gauge [...] quittin.0 Smokeless tobacco: Never Tobacco comments: Smokes [place] Vaping Use Vaping Use: Never used Substance [...] neg 02/17/2020 PSA 0.75, no Fhx of [employer] Police Sergeant Assessment and Plan: Microhematuria- prior w/u neg, [...] Level: 4 - Moderate documented in this encounterFirelands Regional Medical [facility]01-24-2023 History of Present illness Narrative* Jen Bergman [...] Weight mgmt/activity No change (09/23/2020) Concerns: N/A Licensed Veterinary Technician plan for next 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 Signature Jen Bergman RN April 26, 2022 documented in this encounterFirelands [facility]01-19-2023 History of Present illness Narrative* Jen Bergman [...] Weight mgmt/activity No change (09/23/2020) Concerns: N/A Licensed Veterinary Technician plan for next outreach: Will follow up next wk. Signature Jen Bergman RN April 21, 2022 documented in this encounterFirelands [facility]01-11-2023 History of Present illness Narrative* Belgica Vega DO - 04/13/2022 4:13 PM EST Transitional Care Management TCM Eligibility Documentation The following information was gathered during the initial Patient Outreach Encounter. Date of Outreach: 04/05/2022 Outreach Attempt 1: Contact Not Made Outreach Attempt 2: Contact Not Made Date of Discharge 04/01/2022 Some recent data might be hidden Summary Discharged from: [facility] Admit Date: March 28, 2022, [...] also has history of microalbuminuria. Patientdid see carpet weaver during January 2022. Per note indicates stage [...] mg. 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 During last office visit which was a hospital discharge follow-up.. Patient had indicated previously he had did not know why he did not quill picking machine operator the Crestor. That medication has since dropped off of his med list. Patient was being prescribed Lipitor 40 mg by hospitalist at [facility].Pt isnt taking lipitor or Crestor... Cholesterol was [...] med list Pt was referred to social media community manager recently. Patient indicates he has troubles remembering things. Patient indicates he brought his sister along to help remember things. Per sis, she doesn't want him to take all these pills, doesn't feel necessary. Pt uses [facility] pharmacy. Review of Systems Constitutional: Negative for [...] 13, 2022 4:13 PM documented in this encounterFirelands Regional Medical [facility]01-10-2023 History of Present illness Narrative* CHARLEY Bernabe - 04/12/2022 8:58 AM EST Provider Action / FYI PCP Action FYI Primary Care Social Work Assessment Date of Service: April 12, 2022 (Patient has been identified by name and date of ) Patient Name: José Manuel Ashton Referred by: Physician Patient Licensed Veterinary Technician: Jen Bergman RN Hand-In Received: Yes Reason [...] attempt to discuss with the patient. Social Manager Hospice: Meche Sanders (Sister) [phone] Caregiver Status: Patient is not a caregiver for another person. Marital Status: Single Parents: did not discuss Children: not responsible for minor children Siblings: Meche Sanders (Sister) [phone]; Marek Ashton (Brother) Emotional Support animals: none Stress: Lives with brother and [id number] and needs to move to his own housing. Primary Language: Bahraini Ethnicity/Cultural identification: Not Pentecostal Affiliation: did not disclose Gender Identity: Male Sexual Orientation: Straight (not lesbian or smith) Status (Including History of Combat Experience): None Living Arrangements: Home Resides with: Brother and Mvgoir-ue-Smu Issues or Concerns with Home Environment: Patient [...] Services: none Employment/Employer: disabled Source of Income: [facility] Insurance Provider(s): Payor: MEDICARE / Plan: MEDICARE A AND B / Product Type: Medicare / Medication Adherence: I am convinced of the importance of my prescription medication:Agree mostly - 0 I worry that my prescription medication will do more harm than good to me:Disagree mostly - 0 I feel financially burdened by my tcr-tp-yktaze expenses for my prescription medication:Disagree mostly -0 Patient is categorized as:low risk < 2 Patient Stated Goals: community resources [place] of Choice Explained: N/A Summary: PCSW received [...] External Resource Time Spent: 90 minutes SIGNATURE: CHARLEY Bernabe PATIENT NAME: José Manuel Ashton DATE: April 12, 2022 TIME: 8:58 AM CONTACT #: [phone] documented in this encounterFirelands [facility]01-04-2023 History of Present illness Narrative* Jen Bergman RN - 04/06/2022 2:35 PM EST TRANSITIONAL CARE MANAGEMENT (TCM) COMMUNITY MONITORING PROGRAM - [place] SUMMARY: Contact made with patient: No - 2nd unsuccessful attempt - end outreach and close encounter Outreach ended * Jen Bergman RN - 04/05/2022 11:43 AM EST TRANSITIONAL CARE MANAGEMENT (TCM) COMMUNITY MONITORING PROGRAM - [place] Pt has a hospital f/u appointment on 04/13/22 at 3:40p SUMMARY: Pt discharged from [facility] on 04/01/22. RISK 27 Admitted for: REASON I WAS IN THE HOSPITAL: Hyperglycemia Principal Problem: Hyperglycemia Active Problems: TARYN (acute kidney injury) (HCC) Nausea and vomiting HTN (hypertension) Nicotine use disorder, F17.2 Resolved Problems: * No resolved hospital problems. * Discharge Disposition: Home/Self Care Contact made with patient: No - next outreach attempt will be on next day Outreach ended * Jen Bergman RN - 04/05/2022 11:43 AM EST TCM Home Visit Referral Source of Stratification: [facility] Hospital Admission Status: Discharged Readmission Risk Score: 27 JANELL Score: 7 Patient meets program referral criteria: No Patient does not qualify for High Risk TCM Home Visit program due to: Discharged home, does not meet program criteria Jen Bergman RN April 05, 2022 11:43 AM documented in this encounterFirelands Regional Medical Center South Campus12-28-2022 Miscellaneous Notes* Telephone Encounter - Sissy Mayen - 03/30/2022 9:05 AM EST Primary care social work consult Auto-referred documented in this encounterFirelands Regional Medical Center South Campus12-21-2022 Miscellaneous Notes* Telephone Encounter - Samia Thomason LPN - 03/23/2022 10:51 AM EST ----- Message from Soren Byrd MD sent at 03/22/2022 5:20 PM EST ----- Please call patient and inform results. Vitamin D levels were low. Start taking Vitamin D3 2,000 international unit(s) daily, available w/oprescription. documented in this [facility]12-21-2022 Miscellaneous Notes* Telephone Encounter - Liyah [...] unit(s) daily, available w/oprescription. documented in this encounterFirelands Regional Medical Center South Campus12-15-2022 History of Present illness Narrative* Jen Bergman RN - 03/17/2022 2:37 PM EST TRANSITION CARE MANAGEMENT (TCM) FOLLOW-UP NOTE Patient identified by name and date of : NO Summary: PCC attempted TCM f/u call ([facility] D/C 02/15/22) - not able to leave a msg. Concerns: N/A Licensed Veterinary Technician plan for next outreach: Will follow up in about 3wks. Signature Jen Bergman RN March 17, 2022 documented in this encounterFirelands Regional Medical Center South Campus12-09-2022 History of Present illness Narrative* Jen Bergman RN - 03/11/2022 11:41 AM EST PRIMARY CARE COORDINATION FOLLOW-UP NOTE Patient identified by name and date of . NO Summary: PCC attempted to call pt for TCM f/u ([facility] D/C 02/15/22) - not able [...] Weight mgmt/activity No change (09/23/2020) Concerns: N/A Licensed Veterinary Technician plan for next outreach: Will follow up next wk. Signature Jen Bergman RN March 11, 2022 documented in this encounterFirelands Regional Medical Center South Campus12-08-2022 Miscellaneous Notes* Telephone Encounter - Bunny Daniels - 03/10/2022 11:06 AM EST ----- Message from Saskia Ramirez sent at 03/10/2022 10:38 AM EST ----- Reason for the call/escalation: Harish with [facility] calling for updated medication list Was Patient Referred to [facility]/Seek Emergency Treatment (Y/N): no Did Patient Agree (Y/N): n/a Was An Attempt Made To Transfer The Patient To The Office (Y/N): no Were You Able To Reach Someone At The Office (Y/N): n/a If Yes - Patient Was Transferred To (Caregivers Name): n/a If No - Which [facility] Leadership Model Maker Plaster Did You Speak With Regarding This Patient: n/a Was an appointment scheduled (Y/N): no Reason patient was requesting visit (RFV/signs and symptoms/diagnosis) : [facility] Person calling if other than patient: Harish Return call to if other than patient: Harish Best contact number: [phone] , fax# [phone] Thank you, Saskia Ramirez March 10, 2022 10:38 AM documented in this encounterFirelands Regional Medical Center [facility] Campus11-29-2022 Miscellaneous Notes* Telephone Encounter - Griselda Mayfield - 03/01/2022 4:09 PM EST Consult to Endocrinology Confirmation number: [id number] documented in this encounterFirelands Regional Medical Center South Campus11-29-2022 History of Present illness Narrative* Belgica Vega DO - 03/01/2022 2:48 PM EST Images from the original note were not included. Belgica [address] [address] Visit Date: March 01, 2022 Mr.Jim Najma Ashton Date of : 1960 MRN/E #: [id number] History of Present Illness José Manuel Ashton is a 61 year old male. Patient presents to the clinic today for follow-up hypertension, diabetes HPI Pt here with faina Maciel. Patient has history of hypertension and lower extremity edema.. BP today 156/94. BP during last office visit [id number]/85., Recheck 135/83. during January 2022. Patient was [...] Pt indicates doesn't want to go to [place].. Pt hasnt taken any DM meds x 4 days. Glucose was 170 on January 27, 2022. Patient does have history of CKD stage III AAA. Patient also has history of microalbuminuria. Patient did see carpet weaver during January 2022. Per note indicates stage [...] 17, 2022, discharge January 20, 2022 from [facility].. Per note: REASON FOR HOSPITALIZATION: Risk of [...] mg. 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 Patienthad indicated previously he had did not know why he did not quill picking machine operator the Crestor. That medication has since dropped off of his med list. Patient is being prescribed Lipitor 40 mg by hospitalist at [facility].Pt isnt taking lipitor.. Cholesterol was 260 triglyceride [...] quittin.9 Smokeless tobacco: Never Tobacco comments: Smokes [place] Vaping Use Vaping Use: Never used Substance [...] mouth once daily. 90 tablet 3 Insulin Bee, Disposable, (COMFORT EZ PEN NEEDLES) 29 gauge [...] Urine 01/21/2022 Trace (A) Negative Final Specific [place], Ur 01/21/2022 >=1.030 (A) 1.005 - 1.030 [...] (A) 74 - 99 mg/dL Final Comment: Location:[facility], [address] [place] [address], [facility] The Accu-Chek Inform II glucose meter [...] Desk Reference: National Heart, Lung, and Blood [place]. National Institutes of Health. 2001: NIH Publication [...] (A) 74 - 99 mg/dL Final Comment: Location:[place] [address] The Accu-Chek Inform II glucose meter has [...] (A) 74 - 99 mg/dL Final Comment: Location:[place] [address] The Accu-Chek Inform II glucose meter has [...] (A) 74 - 99 mg/dL Final Comment: Location:[place] [address] The Accu-Chek Inform II glucose meter has [...] (A) 74 - 99 mg/dL Final Comment: Location:[facility], [address] [place] [address], [facility] The Accu-Chek Inform II glucose meter [...] (A) 74 - 99 mg/dL Final The [place] Diabetes Association (ADA) provides guidance for cutoff [...] Standards of Medical Care in Diabetes 2016, [place] Diabetes Association. Diabetes Care. 2016.39(Suppl 1). BUN [...] (A) 74 - 99 mg/dL Final Comment: Location:[address], [facility] The Accu-Chek Inform II glucose meter [...] (A) 74 - 99 mg/dL Final Comment: Location:[place] [address] The Accu-Chek Inform II glucose meter has [...] (A) 74 - 99 mg/dL Final Comment: Location:[place] [address] The Accu-Chek Inform II glucose meter has [...] (A) 74 - 99 mg/dL Final Comment: Location:[place] [address] The Accu-Chek Inform II glucose meter has [...] (A) 74 - 99 mg/dL Final Comment: Location:[place] [address] The Accu-Chek Inform II glucose meter has [...] (A) 74 - 99 mg/dL Final Comment: Location:[place] [address] The Accu-Chek Inform II glucose meter has [...] 89 74 - 99 mg/dL Final Comment: Location:[place] [address] The Accu-Chek Inform II glucose meter has [...] (A) 74 - 99 mg/dL Final Comment: Location:[address], [facility] The Accu-Chek Inform II glucose meter [...] (A) 74 - 99 mg/dL Final Comment: Location:[address], [facility] The Accu-Chek Inform II glucose meter [...] (A) 74 - 99 mg/dL Final Comment: Location:[place] [address] The Accu-Chek Inform II glucose meter has [...] 76 74 - 99 mg/dL Final Comment: Location:[place] [address] The Accu-Chek Inform II glucose meter has [...] (A) 74 - 99 mg/dL Final Comment: Location:[place] [address] The Accu-Chek Inform II glucose meter has [...] (A) 74 - 99 mg/dL Final Comment: Location:[place] [address] The Accu-Chek Inform II glucose meter has [...] (A) 74 - 99 mg/dL Final Comment: Location:[place] [address] The Accu-Chek Inform II glucose meter has [...] 65 74 - 99 mg/dL Final Comment: Location:[place] [address] The Accu-Chek Inform II glucose meter has [...] 84 74 - 99 mg/dL Final Comment: Location:[place] [address] The Accu-Chek Inform II glucose meter has [...] (A) 74 - 99 mg/dL Final Comment: Location:[place] [address] The Accu-Chek Inform II glucose meter has [...] 95 74 - 99 mg/dL Final Comment: Location:[place] [address] The Accu-Chek Inform II glucose meter has [...] (A) 74 - 99 mg/dL Final The [place] Diabetes Association (ADA) provides guidance for cutoff [...] Standards of Medical Care in Diabetes 2016, [place] Diabetes Association. Diabetes Care. 2016.39(Suppl 1). BUN [...] (A) 74 - 99 mg/dL Final Comment: Location:[place] [address] The Accu-Chek Inform II glucose meter has [...] (A) 74 - 99 mg/dL Final Comment: Location:[address], [facility] The Accu-Chek Inform II glucose meter [...] (A) 74 - 99 mg/dL Final The [place] Diabetes Association (ADA) provides guidance for cutoff [...] Standards of Medical Care in Diabetes 2016, [place] Diabetes Association. Diabetes Care. 2016.39(Suppl 1). BUN [...] please visit the Change in Procalcitonin Calculator, [email or web address]. CRP 01/26/2022 0.3 <0.9 mg/dL Final Glucose, Point of Care 01/26/2022 159 (A) 74 - 99 mg/dL Final Comment: Location:[address], [facility] The Accu-Chek Inform II glucose meter [...] (A) 74 - 99 mg/dL Final Comment: Location:[address], [facility] The Accu-Chek Inform II glucose meter [...] (A) 74 - 99 mg/dL Final Comment: Location:[address], [facility] The Accu-Chek Inform II glucose meter [...] 73 74 - 99 mg/dL Final Comment: Location:[place] [address] The Accu-Chek Inform II glucose meter has [...] (A) 74 - 99 mg/dL Final Comment: Location:[place] [address] The Accu-Chek Inform II glucose meter has [...] to the nearest ED. documented in this encounterFirelands Regional Medical Center South Campus11-23-2022 Miscellaneous Notes* Telephone Encounter - Stephanie Walker - 02/23/2022 1:30 PM EST Tried to reach out to schedule colonoscopy screening and the voicemail was full and was unable to leave message. Stephanie Walker February 23, 2022 1:31 PM documented in this encounterFirelands Regional Medical Center South Campus11-21-2022 Miscellaneous Notes* Telephone Encounter - Emma Mari - 02/21/2022 4:56 PM EST No Show Documentation José Manuel H Ramsier no showed for an appointment on 02/21/2022 with Janie Pickett APRN.PAYROLL SECRETARY at 3:00 pm. He was scheduled for [...] 21, 2022 4:57 PM documented in this encounterFirelands Regional Medical Center South Campus11-21-2022 History of Present illness Narrative* Jen Bergman RN - 02/21/2022 3:24 PM EST TRANSITIONAL CARE MANAGEMENT (TCM) COMMUNITY MONITORING PROGRAM - [place] SUMMARY: Pt discharged from [facility] on 02/15/22. Pt discharged from [facility] on 01/20/22. Admitted for: Hospital Problem List [...] and date of : YES Spoke to [facility] Summary: PCC called SNF re pt status. Pt was D/C'd on 02/15/22. Signature Jen Bergman RN February 21, 2022 documented in this encounterFirelands Regional Medical Center South Campus11-21-2022 History of Present illness Narrative* Janie Pickett APRN.PAYROLL SECRETARY - 02/21/2022 11:29 AM EST Subjective Important [...] AST ALT Alkaline Phosphatase ok Moved from [place] at some point. Was taking actos plus Metformin. Eventually Primary Care Provider Added basal insulin. 10/2020: first time office visit with Janie Pickett APRN.LEX for diabetes management. Previous diabetes related labs from [facility] reviewed prior to today's office visit. Any changes made at our last diabetes management visit were abstracted accordingly (if applicable). Today's Office Visit: Orals: Actos 45 mg daily, Metformin ER 500 mg 2 tabs at breakfast and dinner, Basal insulin (dosed in units) Supper dose: [id number] Other: trulicity 1.5 mg, "self monitoring blood [...] quittin.8 Smokeless tobacco: Never Tobacco comments: Smokes [place] Vaping Use Vaping Use: Never used Substance [...] tablets before breakfast and before supper Insulin Bee, Disposable, (COMFORT EZ PEN NEEDLES) 29 gauge [...] this visit. Physical Exam documented in this encounterFirelands Regional Medical Center South Campus10-28-2022 History of Present illness Narrative* Jen Bergman RN - 01/28/2022 8:42 AM EDT TRANSITION CARE MANAGEMENT (TCM) DISCHARGE TO POST ACUTE FACILITY POST ACUTE TRANSFER SUMMARY: -Pt discharged from [facility] on 01/27/22. RISK 29 -Post Acute Facility Admitted to SNF. 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 Author Type: Registered Nurse Type: Progress Notes Filed: 01/26/2022 5:38 AM Note Text: Assumed care of patient at 1930. He is alert and oriented, pleasant and cooperative. Pleasantly social with staff and peers. Denies SI/HI/AVH. Cooperative with HS meds, then retired to bed after snack, where he appeared to sleep through the night without sign of distress.[facility] 01-25-2022 NoteHNO ID: [id number] Author: Brigitte Carlisle MD Service: Psychiatry Author [...] per patient's request. Aim d/c to [facility] rehab facility within next few days. Luis Carlos Short Jr, MD January 25, 2022 12:55 PM PROGRESS NOTE BEHAVIORAL HEALTH SERVICE DATE: 01/25/2022 SERVICE TIME: 10:20 AM The Interdisciplinary team met and reviewed treatment goals and discharge planning. Subjective Patient seen in common area, disheveled hair and is sitting alone eating. Reports that he is doing "ok" today. Wanting the team to call his sister Janell and have her updated on the plan. Is ok with going to SNF as long as it is not the facility in [place]. Denies any issues with his medications. Feels that he is slowly improving. Does not report SI/AVH. Sister's number (Janell) [phone] Objective PHYSICAL EXAM: BP 134/70 Pulse 86 [...] and alternatives to the (more content not included)...[facility] 01-25-2022 NoteHNO ID: [id number] Author: Mimi Benton RN Service: ? Author [...] at 0600 was scanned twice at 0ml. [facility] [id number] NoteHNO ID: [id number] Author: Corky Rodarte MD Service: Urology Author [...] January 24, 2022 TIME: 6:36 PM PAGER: [address] [place], [place] [address]-24-2022 NoteHNO ID: [id number] Author: Kylah Orantes MD Service: ? Author Type: Physician Type: Progress Notes Filed: 02/27/2022 8:27 PM Note Text: [facility] - General Progress Note JOSÉ MANUEL ASHTON : 1960 AGE: 61 SEX: M CSN: [id number] HOSP [facility]: [facility] LOCATION: [facility] DATE OF SERVICE: 01/24/2022 This is a [...] quittin.9 Smokeless tobacco: Never Tobacco comments: Smokes [place] Vaping Use Vaping Use: Never used Substance [...] reviewed and negative. Most recent labs reviewed [facility] consultants notes reviewed Most recent images Reviewed [...] edema No goiter Kylah Orantes M.D. Internal MedicinePremier Health Miami Valley Hospital NorthFaxqgdra48-37-3021 NoteHNO ID: [id number] Author: Sarah Noguera DO Service: Psychiatry Author [...] Encouraging that patient willing to participate in jail rehab care upon discharge. Optimize antidepressant and anxiolytic (venlafaxine) and augmenting with mood stabilizer (Depakote). Aim d/c by end week to SNF near [facility] in [place], [place]. Luis Carlos Short Jr, MD January [...] GAF: -40-31 Some impairm (more content not included)...[facility] 01-24-2022 NoteHNO ID: [id number] Author: Domingo Lopez RN Service: Nursing Author Type: Registered Nurse Type: Nursing Progress Note Filed: 01/24/2022 6:01 AM Note Text: 2300 - 0730: 0000: pt observed asleep in bed. 0600: pt slept approximately 7 hours.[facility] NorthUcwdchcx61-63-1438 NoteHNO ID: [id number] Author: Corky Rodarte MD Service: Urology Author [...] January 23, 2022 TIME: 2:30 PM PAGER: [address] [place], [place] [address]10-23-2022 NoteHNO ID: [id number] Author: Kylah Orantes MD Service: ? Author Type: Physician Type: Progress Notes Filed: 02/25/2022 12:30 AM Note Text: [facility] - General Progress Note JOSÉ MANUEL ASHTON : 1960 AGE: 61 SEX: M CSN: [id number] [facility]: [facility] LOCATION: [facility] DATE OF SERVICE: 01/23/2022 This is a [...] quittin.9 Smokeless tobacco: Never Tobacco comments: Smokes [place] Vaping Use Vaping Use: Never used Substance [...] OF RECTAL TUMOR, TRANSANAL 11/24/2020 Dr. Ahmadi R.Donny.S negative other than HPI AND PMH all [...] edema No goiter Kylah Orantes M.D. Internal MedicinePremier Health Miami Valley Hospital [id number] NoteHNO ID: [id number] Author: Kylah Orantes MD Service: ? Author Type: Physician Type: Progress Notes Filed: 02/20/2022 8:03 PM Note Text: [facility] - General Progress Note JOSÉ MANUEL ASHTON : 1960 AGE: 61 SEX: M CSN: [id number] [facility]: [facility] LOCATION: [id number] DATE OF SERVICE: 01/22/2022 This is a [...] quittin.8 Smokeless tobacco: Never Tobacco comments: Smokes [place] Vaping Use Vaping Use: Never used Substance [...] reviewed and negative. Most recent labs reviewed [facility] consultants notes reviewed Most recent images Reviewed [...] edema No goiter Kylah Orantes M.D. Internal MedicinePremier Health Miami Valley Hospital NorthJixgcqwu72-94-5339 NoteHNO ID: [id number] Author: Miriam Jennings APRN.PAYROLL SECRETARY Service: Psychiatry Author Type: Nurse Practitioner Type: [...] moderate Imminent Physical Self (more content not included)...[facility] NorthXvdngrig30-07-4476 NoteHNO ID: [id number] Author: Mimi Benton RN Service: ? Author Type: Registered Nurse Type: Progress Notes Filed: 01/21/2022 5:31 AM Note Text: Assumed care of patient at 1999. He is alert and oriented, passively cooperative. Denies SI/HI. Cooperative with medications, and appeared to sleep through the night without distress.[facility] NorthUhnntnau90-11-6472 NoteHNO ID: [id number] Author: Chele Mcginnis RN Service: Nursing Author [...] Treatment Plan Date Initiated: 01/27/22 Time Initiated: 1642 Patient Participation in Initial Treatment Plan: Yes Individualized problems: Risk of harm to self;Mood disorder Problem - Mood Disorder Mood Disorder: Depression Short Term Goals: Patient will report decrease in identified symptoms;Patient will report decrease in suicidal ideation/self-harm behavior Target Date Short Term Goals: 01/27/22 Half-Way Goals: Patient will demonstrate optimal level of functioning;Patient/support system will verbalize intent to comply with medication and treatment after discharge Target Date Half-Way Goals: 01/27/22 Interventions - Nursing: Obtain baseline [...] self-injurious behavior Date Initiated: 01/20/22 Time Initiated: 1642 Short Term Goals: Refrain from self injurious behavior Balance Wheel Hand Filer Goals: Identify positive alternatives to self-injurious behavior [...] [place] DATE: January 20, 2022 TIME: 5:48 [facility]10-20-2022 NoteHNO ID: [id number] Author: Teresa Diego APRN.PAYROLL SECRETARY Service: Hospital Medicine Author Type: Nurse Practitioner Type: Progress Notes Filed: 01/20/2022 5:20 PM Note Text: Reviewed patient's chart. Discussed POC with attending and IDT. Chief complaint: depression and anxiety Interval History: Patient seen this morning. No new issues overnight. He still has dysuria, no changes from yesterday. No hematuria, UO is yellow. Denies fevers, chills, CP, dyspnea. He is amenable to transfer today when bed is available. OBJECTIVE [...] Assessment AND Plan: - Referred by OP carpet weaver Dr Kennedy for concern of worsening depression [...] 2207 01/19/22 1652 01/19/22 1220 01/19/22 0745 01/18/22 2013 01/18/22 1611 PCGLUCOSE 196* 163* 184* 359* 294* [...] (HCC) POA: Yes Assessment AND Plan: - Athletic Field Custodian 1.1, 1.3 at baseline. - Limits nephrotoxins and trend daily labs. Abdominal pain - Resolved, tolerating diet. - CT AP non acute - ADAT, continue bowel regimen. Dispo: Patient medically stable to transfer to unit, [address] Orantes will continue to follow along. Discussed with intake and Dr Olivas, patient accepted to 6N. Teresa Diego, MSN, PAYROLL SECRETARY [facility] 01/2022 10:30am For inpatients: I spent 25 minutes in the visit, with more than 50% of the total fpcs-rz-smsf time of the visit in counseling / coordination of care. [facility] NorthPjgsmxdf75-64-0459 NoteHNO ID: [id number] Author: Kylah Orantes MD Service: ? Author Type: Physician Type: Progress Notes Filed: 01/24/2022 9:34 PM Note Text: [facility] - General Progress Note JOSÉ MANUEL ASHTON : 1960 AGE: 61 SEX: M CSN: [id number] [facility]: [facility] LOCATION: [facility] ATTENDING PHYSICIAN: LUIS CARLOS SHORT JR DATE OF SERVICE: 01/20/2022 TIME [...] follow up. Kylah Orantes M.D. Internal Medicine BARTHOLOMEW:[id number] NoteHNO ID: [id number] Author: Rafal Carroll PA-C Service: Psychiatry Author Type: Physician Assortment Planner Type: Plan of Care Filed: 01/20/2022 10:42 AM Note Text: PLAN OF CARE Patient referred to [facility] on 01/19 for voluntary admission given concerns for his depression to be affecting his quality of life and his ability to care for himself. Per primary team, patient is medically ready as of 01/19/2022. Per [facility], 01/20/22 @0815, Pt presented [to Dr. Hoffman], depression appears to be secondary to medical needs, wants to review chart and will make recommendations after that. Will call back after that should be after 2pm. Received a call from WILDLIFE CONSERVATIONIST Teresa Diego with concerns for delayed transfer, [...] Olivas @10:35AM, patient will be transferred to [address] [place], [place] [address]2910-20-2022 NoteHNO ID: [id number] Author: Kylah Orantes MD Service: ? Author Type: Physician Type: Progress Notes Filed: 01/19/2022 10:43 PM Note Text: [facility] - General Progress Note JOSÉ MANUEL ASHTON : 1960 AGE: 61 SEX: M CSN: [id number] [facility]: [facility] LOCATION: [facility] ATTENDING PHYSICIAN: Kylah Orantes M.D. [...] quittin.8 Smokeless tobacco: Never Tobacco comments: Smokes [place] Vaping Use Vaping Use: Never used Substance [...] 33 Units SUBCUTANEOUS AT BEDTIME Teresa Diego APRN.PAYROLL SECRETARY 33 Units at 01/19/22 220 atropine 0.5 mg injection 0.5 mg INTRAVENOUS PRN Radha Mack APRN.PAYROLL SECRETARY NaCl 0.9% iv flush bag 20 mL INTRAVENOUS PRN Radha Mack APRN.PAYROLL SECRETARY sodium chloride 0.9 % (flush) 3-5 mL (BD POSIFLUSH) 3-5 mL INTRAVENOUS q 12 H Radha Mack APRN.PAYROLL SECRETARY 5 mL at 01/19/222206 aluminum-magnesium hydroxide-simethicone 200-200-20 mg/5 mL 30 mL (MAALOX,MYLANTA,MAG-AL PLUS) 30 mL ORAL DAILY PRN Radha Mack APRN.PAYROLL SECRETARY acetaminophen 650 mg tab(s) (TYLENOL) 650 mg ORAL q 6 H PRN Radha Mack APRN.PAYROLL SECRETARY 650 mg at 01/18/22 0818 insulin lispro injection (rapid acting) (ADMELOG) SUBCUTANEOUS AT BEDTIME Radha Mack APRN.PAYROLL SECRETARY 1 Units at 01/19/222206 hydrALAZINE 10 mg injection (APRESOLINE) 10 mg INTRAVENOUS q 6 H PRN Radha Mack APRN.PAYROLL SECRETARY lisinopril 20 mg tab(s) (ZESTRIL, PRINIVIL) 20 mg ORAL DAILY Radha Mack APRN.PAYROLL SECRETARY 20 mg at 01/19/22 0848 tamsulosin 0.4 mg cap(s) (FLOMAX) 0.4 mg ORAL AT BEDTIME Radha Mack APRN.PAYROLL SECRETARY 0.4 mg at 01/19/222206 insulin lispro injection (rapid acting) (ADMELOG) SUBCUTANEOUS w MEALS Nusrat Nash, MOBILE PHONE SALESPERSON.PAYROLL SECRETARY 15 Units at 01/19/22 1715 pioglitazone 45 mg tab(s) (ACTOS) 45 mg ORAL DAILY Nusrat Nash APRN.PAYROLL SECRETARY 45 mg at 01/19/22 0848 docusate sodium 100 mg cap(s) (COLACE) 100 mg ORAL BID Nusrat Nash APRN.PAYROLL SECRETARY 100 mg at 01/19/22 2207 polyethylene glycol 3350 17 g packet (MIRALAX, GLYCOLAX) 17 g ORAL DAILY Nusrat Nash APRN.PAYROLL SECRETARY 17 g at 01/18/22 1222 venlafaxine ER 37.5 mg cap(s) (EFFEXOR XR) 37.5 mg ORAL DAILY WITH BREAKFAST Rafal Carroll PA-C 37.5 mg at 01/19/22 0849 dextrose 40 % 15 g 15 g OR (more content not included)...[facility] 01-19-2022 NoteHNO ID: [id number] Author: Teresa Diego APRN.CNP Service: Hospital Medicine Author Type: Nurse Practitioner [...] he is agreeable. Rounded in tandem with ARIANA. He denies SI. Physical Exam: BP 147/67 [...] Assessment AND Plan: - Referred by OP carpet weaver Dr Kennedy for concern of worsening depression and reportedly not taking wellbutrin. - Patient denies SI. - Appreciate input. Recommending voluntary psychiatry admission, patient in agreement. - Wellbutrin held, continue effexor. Hyperglycemia POA: Yes Type 2 diabetes mellitus, with long-term current use of insulin (HCC) POA: Yes Assessment AND Plan: Recent Labs 01/19/22 1220 01/19/22 0745 01/18/22201201/18/22 1611 01/18/22 1136 01/18/22 0821 01/17/22 2340 [...] (HCC) POA: Yes Assessment AND Plan: - Athletic Field Custodian 1.3 which is his baseline. - Limits nephrotoxins and trend daily labs. Abdominal pain - Resolved, tolerating diet. - CT AP non acute - ADAT, continue bowel regimen. Dispo: Patient medically stable to transfer to unit. Dr Orantes will continue to follow along and f/up UA/ culture. Discussed with Dr Orantes via phone and transfer orders placed. Teresa Diego, MSN, PAYROLL SECRETARY [facility] 01/19/22 3:30 PM For inpatients: I spent 35 minutes in the visit, with more than 50% of the total [id number] time of the visit in counseling / coordination of care. [facility] [id number] Miscellaneous Notes* Behavorial Health Intake - [facility] - 01/19/2022 5:16 PM EDT BEHAVIORAL HEALTH INTAKE NOTE SERVICE DATE: 01/19/2022 SERVICE TIME: 1700 Nature of the crisis: depression leading to medication noncompliance Presenting Problem: José Manuel Ashton is a 61 year old male referred by [facility] for depression. Per Psych consult 01/19/2022 [...] and care. Patient is agreeable. Per ED silo worker Roxanne Dowling OSCAR on 01/17 "This keno writer / runner assessed patient via face to face who presents alert and oriented x 4, appears overweight and disheveled, speech is within normal limits appropriate to tone, prosody, melody, phonetic, and syntax, thought process is linear and organized, d ifficulty concentrating at times, and a poor historian,, mood is depressed with flat affect, with impaired judgement and insight into illness. Patient reports that his Airfield Services Officer sent him to the emergency room for [...] too many things going on . This keno writer / runner inquires if patient believes he will get [...] states that [place] for himself. This keno writer / runner discussed with patientpotential for a [facility] nurse to come into home to assist [...] quittin.8 Smokeless tobacco: Never Tobacco comments: Smokes [place] Vaping Use Vaping Use: Never used Substance [...] and before supper^Disp: 120 tablet^Rfl: 1 Insulin Bee, Disposable, (COMFORT EZ PEN NEEDLES) 29 gauge [...] by this patient by: PATIENT ZIGGY Wong MEDICATION COMPLIANCE: No ALLERGIES Allergen Reactions Penicillins Unknown Pt states he thinks he had a reaction as a child PAST SURGICAL HISTORY: PAST SURGICAL HISTORY Procedure Laterality Date COLONOSCOPY GEN ANES 07/24/2020 Invasive Adenocarcinoma arising in a Tubulovillous Adenoma in the lower rectum, Tubular Adenomas, Fragment of Hyperplastic polyp, Internal Hemorrhoids EGD 07/24/2020 Wlil's Esophagus, Hyperplastic polyp in Duodenum EXCISION OF RECTAL TUMOR, TRANSANAL 11/24/2020 Dr. Ahmadi SOCIOECONOMIC HISTORY: Employer And Job Title: None on file Years Of Education Completed: Not specified Marital Status: Single with no children SOCIAL INFORMATION: Provider Stated Diagnosis: Major Depressive Disorder Satisfaction With Relationships: per [facility] 01/17 "Pt reports to living with brothers and sisters. Patient states that he sometimes does not get along with his siblings. Pt states he came from a family of 17 siblings, he is number 17" Does Patient Have Minor Children for Whom He/She is Responsible?: No Education Level: Some High School (9th grade per [facility]) Is the Patient a [place]: No Legal History: No Legal History How Legal Issues Were Verified: [facility] Experiential Therapist of Courts Website;[facility]'s Sexual Offender Website Gender Specific Test: Not [...] Cane Continence: Continent MENTAL HEALTH SERVICES: Agency/Organization: [facility] in [facility] Inpatient Mental Health Treatment History: None INTERVENTIONS Sources of Information: Patient;[facility];Prior Referrals;Inpatient Medical Staff Patient Assessed by Intake [...] Dr. Olivas Admission Status: Full Admit Unit: [address] Bed#: Room 617 Bed 1 Report Given To: Chele ZHANG Report Date: 01/20/22 Report Time: 1347 Admission Type: Voluntary Is Patient Less Than 18 Years of Age or have a Guardian/Healthcare Power of Assistant Chief Nursing Officer?: No Disposition Date: 01/20/22 Disposition Time: 1353 SIGNATURE: [facility] PATIENT NAME: José Manuel Ashton DATE: January 19, 2022 TIME: 5:16 PM documented in [facility]22 NoteHNO ID: [id number] Author: Jennifer Castillo RN Service: Nursing Author Type: Registered Nurse Type: Nursing Progress Note Filed: 01/18/2022 4:10 PM Note Text: 1600 refuses to use urinal.[facility] [id number] NoteHNO ID: [id number] Author: Rafal Carroll PA-C Service: Psychiatry Author Type: Physician Assortment Planner Type: Plan of Care Filed: 01/18/2022 6:05 PM Note Text: PLAN OF CARE José Manuel Ashton is a 61 year old male with history of MDD, BRANDAN, Cannabis Use Disorder, Tobacco Use Disorder (in remission), Alcohol Use Disorder (in full remission?), Obesity, DM2, HTN, BPH, CKD3, Vitamin D Deficiency, Malignant Neoplasm of Rectum, who presented to the ED as recommended by his carpet weaver for a psychiatric evaluation in the context of poor compliance to treatment. 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 Kennedy for "psych eval" who saw [...] Was prescribed Wellbutrin, but didn't take. Per [facility], his last psych visit was in 05/31/2021 [...] XR 37.5 mg in (more content not included)...[facility] 01-18-2022 NoteHNO ID: [id number] Author: Nusrat Nash APRN.CNP Service: Hospital Medicine Author Type: Nurse Practitioner [...] to the ED on request of his Airfield Services Officer, Dr Kennedy, for Psych evaluation (increasing depression). [...] -presented to the ED per request of Airfield Services Officer for Psych evaluation -await Psych evaluation Mixed [...] CBC, Coags, BMP, Mg, Phos Recent Labs 01/18/2252601/17/222046 WBC 6.34 6.69 HB 13.9 16.1 HCT [...] VTE prophylaxis appropriat (more content not included)... [facility] [id number] History of Past illness Narrative* Problem Noted Date Resolved Date Abdominal discomfort 01/18/2022 01/19/2022 Microscopic hematuria 03/08/2021 01/17/2022 Weakness 05/05/2020 06/15/2020 Decreased mobility and endurance 05/05/2020 06/15/2020 documented as of this encounter (statuses as of 01/20/2022) [facility]10-18-[facility]22 History of Past illness Narrative* Problem Noted Date Resolved Date Abdominal discomfort 01/18/2022 01/19/2022 Microscopic hematuria 03/08/2021 01/17/2022 Weakness 05/05/2020 06/15/2020 Decreased mobility and endurance 05/05/2020 06/15/2020 documented as of this encounter (statuses as of 01/28/2022) [facility] History of Past illness Narrative* Problem Noted Date Resolved Date Abdominal discomfort 01/18/2022 01/19/2022 Microscopic hematuria 03/08/2021 01/17/2022 Weakness 05/05/2020 06/15/2020 Decreased mobility and endurance 05/05/2020 06/15/2020 documented as of this encounter (statuses as of 02/21/2022) [facility] History of Past illness Narrative* Problem Noted Date Resolved Date Abdominal discomfort 01/18/2022 01/19/2022 Microscopic hematuria 03/08/2021 01/17/2022 Weakness 05/05/2020 06/15/2020 Decreased mobility and endurance 05/05/2020 06/15/2020 documented as of this encounter (statuses as of 02/21/2022) [facility] History of Past illness Narrative* Problem Noted Date Resolved Date Abdominal discomfort 01/18/2022 01/19/2022 Microscopic hematuria 03/08/2021 01/17/2022 Weakness 05/05/2020 06/15/2020 Decreased mobility and endurance 05/05/2020 06/15/2020 documented as of this encounter (statuses as of 02/21/2022) [facility] History of Past illness Narrative* Problem Noted Date Resolved Date Abdominal discomfort 01/18/2022 01/19/2022 Microscopic hematuria 03/08/2021 01/17/2022 Weakness 05/05/2020 06/15/2020 Decreased mobility and endurance 05/05/2020 06/15/2020 documented as of this encounter (statuses as of 02/23/2022) [facility] History of Past illness Narrative* Problem Noted Date Resolved Date Abdominal discomfort 01/18/2022 01/19/2022 Microscopic hematuria 03/08/2021 01/17/2022 Weakness 05/05/2020 06/15/2020 Decreased mobility and endurance 05/05/2020 06/15/2020 documented as of this encounter (statuses as of 03/01/2022) [facility] History of Past illness Narrative* Problem Noted Date Resolved Date Abdominal discomfort 01/18/2022 01/19/2022 Microscopic hematuria 03/08/2021 01/17/2022 Weakness 05/05/2020 06/15/2020 Decreased mobility and endurance 05/05/2020 06/15/2020 documented as of this encounter (statuses as of 03/01/2022) [facility] History of Past illness Narrative* Problem Noted Date Resolved Date Abdominal discomfort 01/18/2022 01/19/2022 Microscopic hematuria 03/08/2021 01/17/2022 Weakness 05/05/2020 06/15/2020 Decreased mobility and endurance 05/05/2020 06/15/2020 documented as of this encounter (statuses as of 03/11/2022) [facility] History of Past illness Narrative* Problem Noted Date Resolved Date Abdominal discomfort 01/18/2022 01/19/2022 Microscopic hematuria 03/08/2021 01/17/2022 Weakness 05/05/2020 06/15/2020 Decreased mobility and endurance 05/05/2020 06/15/2020 documented as of this encounter (statuses as of 03/12/2022) [facility] History of Past illness Narrative* Problem Noted Date Resolved Date Abdominal discomfort 01/18/2022 01/19/2022 Microscopic hematuria 03/08/2021 01/17/2022 Weakness 05/05/2020 06/15/2020 Decreased mobility and endurance 05/05/2020 06/15/2020 documented as of this encounter (statuses as of 03/17/2022) [facility] History of Past illness Narrative* Problem Noted Date Resolved Date Abdominal discomfort 01/18/2022 01/19/2022 Microscopic hematuria 03/08/2021 01/17/2022 Weakness 05/05/2020 06/15/2020 Decreased mobility and endurance 05/05/2020 06/15/2020 documented as of this encounter (statuses as of 03/23/2022) [facility] History of Past illness Narrative* Problem Noted Date Resolved Date Abdominal discomfort 01/18/2022 01/19/2022 Microscopic hematuria 03/08/2021 01/17/2022 Weakness 05/05/2020 06/15/2020 Decreased mobility and endurance 05/05/2020 06/15/2020 documented as of this encounter (statuses as of 04/05/2022) [facility] History of Past illness Narrative* Problem Noted Date Resolved Date Abdominal discomfort 01/18/2022 01/19/2022 Microscopic hematuria 03/08/2021 01/17/2022 Weakness 05/05/2020 06/15/2020 Decreased mobility and endurance 05/05/2020 06/15/2020 documented as of this encounter (statuses as of 04/07/2022) [facility] History of Past illness Narrative* Problem Noted Date Resolved Date Abdominal discomfort 01/18/2022 01/19/2022 Microscopic hematuria 03/08/2021 01/17/2022 Weakness 05/05/2020 06/15/2020 Decreased mobility and endurance 05/05/2020 06/15/2020 documented as of this encounter (statuses as of 04/12/2022) [facility] History of Past illness Narrative* Problem Noted Date Resolved Date Abdominal discomfort 01/18/2022 01/19/2022 Microscopic hematuria 03/08/2021 01/17/2022 Weakness 05/05/2020 06/15/2020 Decreased mobility and endurance 05/05/2020 06/15/2020 documented as of this encounter (statuses as of 04/13/2022) [facility] History of Past illness Narrative* Problem Noted Date Resolved Date Abdominal discomfort 01/18/2022 01/19/2022 Microscopic hematuria 03/08/2021 01/17/2022 Weakness 05/05/2020 06/15/2020 Decreased mobility and endurance 05/05/2020 06/15/2020 documented as of this encounter (statuses as of 04/21/2022) [facility] History of Past illness Narrative* Problem Noted Date Resolved Date Abdominal discomfort 01/18/2022 01/19/2022 Microscopic hematuria 03/08/2021 01/17/2022 Weakness 05/05/2020 06/15/2020 Decreased mobility and endurance 05/05/2020 06/15/2020 documented as of this encounter (statuses as of 04/26/2022) [facility] History of Past illness Narrative* Problem Noted Date Resolved Date Abdominal discomfort 01/18/2022 01/19/2022 Microscopic hematuria 03/08/2021 01/17/2022 Weakness 05/05/2020 06/15/2020 Decreased mobility and endurance 05/05/2020 06/15/2020 documented as of this encounter (statuses as of 05/04/2022) [facility] History of Past illness Narrative* Problem Noted Date Resolved Date Abdominal discomfort 01/18/2022 01/19/2022 Microscopic hematuria 03/08/2021 01/17/2022 Weakness 05/05/2020 06/15/2020 Decreased mobility and endurance 05/05/2020 06/15/2020 documented as of this encounter (statuses as of 05/06/2022) [facility] History of Past illness Narrative* Problem Noted Date Resolved Date Abdominal discomfort 01/18/2022 01/19/2022 Microscopic hematuria 03/08/2021 01/17/2022 Weakness 05/05/2020 06/15/2020 Decreased mobility and endurance 05/05/2020 06/15/2020 documented as of this encounter (statuses as of 05/11/2022) [address]18-2022 History of Past illness Narrative* Problem Noted Date Resolved Date Abdominal discomfort 01/18/2022 01/19/2022 Microscopic hematuria 03/08/2021 01/17/2022 Weakness 05/05/2020 06/15/2020 Decreased mobility and endurance 05/05/2020 06/15/2020 documented as of this encounter (statuses as of 05/19/2022) [facility] History of Past illness Narrative* Problem Noted Date Resolved Date Abdominal discomfort 01/18/2022 01/19/2022 Microscopic hematuria 03/08/2021 01/17/2022 Weakness 05/05/2020 06/15/2020 Decreased mobility and endurance 05/05/2020 06/15/2020 documented as of this encounter (statuses as of 05/19/2022) [facility] History of Past illness Narrative* Problem Noted Date Resolved Date Abdominal discomfort 01/18/2022 01/19/2022 Microscopic hematuria 03/08/2021 01/17/2022 Weakness 05/05/2020 06/15/2020 Decreased mobility and endurance 05/05/2020 06/15/2020 documented as of this encounter (statuses as of 06/06/2022) [facility] History of Past illness Narrative* Problem Noted Date Resolved Date Abdominal discomfort 01/18/2022 01/19/2022 Microscopic hematuria 03/08/2021 01/17/2022 Weakness 05/05/2020 06/15/2020 Decreased mobility and endurance 05/05/2020 06/15/2020 documented as of this encounter (statuses as of 06/22/2022) [facility] History of Past illness Narrative* Problem Noted Date Resolved Date Abdominal discomfort 01/18/2022 01/19/2022 Microscopic hematuria 03/08/2021 01/17/2022 Weakness 05/05/2020 06/15/2020 Decreased mobility and endurance 05/05/2020 06/15/2020 documented as of this encounter (statuses as of 06/29/2022) [facility] History of Past illness Narrative* Problem Noted Date Resolved Date Abdominal discomfort 01/18/2022 01/19/2022 Microscopic hematuria 03/08/2021 01/17/2022 Weakness 05/05/2020 06/15/2020 Decreased mobility and endurance 05/05/2020 06/15/2020 documented as of this encounter (statuses as of 06/30/2022) [facility] History of Past illness Narrative* Problem Noted Date Resolved Date Abdominal discomfort 01/18/2022 01/19/2022 Microscopic hematuria 03/08/2021 01/17/2022 Weakness 05/05/2020 06/15/2020 Decreased mobility and endurance 05/05/2020 06/15/2020 documented as of this encounter (statuses as of 07/01/2022) [facility] History of Past illness Narrative* Problem Noted Date Resolved Date Abdominal discomfort 01/18/2022 01/19/2022 Microscopic hematuria 03/08/2021 01/17/2022 Weakness 05/05/2020 06/15/2020 Decreased mobility and endurance 05/05/2020 06/15/2020 documented as of this encounter (statuses as of 07/15/2022) [facility] History of Past illness Narrative* Problem Noted Date Resolved Date Abdominal discomfort 01/18/2022 01/19/2022 Microscopic hematuria 03/08/2021 01/17/2022 Weakness 05/05/2020 06/15/2020 Decreased mobility and endurance 05/05/2020 06/15/2020 documented as of this encounter (statuses as of 07/27/2022) [facility] History of Past illness Narrative* Problem Noted Date Resolved Date Abdominal discomfort 01/18/2022 01/19/2022 Microscopic hematuria 03/08/2021 01/17/2022 Weakness 05/05/2020 06/15/2020 Decreased mobility and endurance 05/05/2020 06/15/2020 documented as of this encounter (statuses as of 07/28/2022) [facility] History of Past illness Narrative* Problem Noted Date Resolved Date Abdominal discomfort 01/18/2022 01/19/2022 Microscopic hematuria 03/08/2021 01/17/2022 Weakness 05/05/2020 06/15/2020 Decreased mobility and endurance 05/05/2020 06/15/2020 documented as of this encounter (statuses as of 08/09/2022) [facility] History of Past illness Narrative* Problem Noted Date Resolved Date Abdominal discomfort 01/18/2022 01/19/2022 Microscopic hematuria 03/08/2021 01/17/2022 Weakness 05/05/2020 06/15/2020 Decreased mobility and endurance 05/05/2020 06/15/2020 documented as of this encounter (statuses as of 08/13/2022) [facility] History of Past illness Narrative* Problem Noted Date Resolved Date Abdominal discomfort 01/18/2022 01/19/2022 Microscopic hematuria 03/08/2021 01/17/2022 Weakness 05/05/2020 06/15/2020 Decreased mobility and endurance 05/05/2020 06/15/2020 documented as of this encounter (statuses as of 08/15/2022) [facility]22 NoteHNO ID: [id number] Author: Kylah Orantes MD Service: ? Author Type: Physician Type: Progress Notes Filed: 01/18/2022 11:14 PM Note Text: [facility] General Progress Note JOSÉ MANUEL ASHTON : 1960 AGE: 61 SEX: M CSN: [id number] [facility]: [facility] LOCATION: [facility] ATTENDING PHYSICIAN: Kylah Orantes M.D. [...] quittin.8 Smokeless tobacco: Never Tobacco comments: Smokes [place] Vaping Use Vaping Use: Never used Substance [...] injection 0.5 mg INTRAVENOUS PRN Radha Mack APRN.PAYROLL SECRETARY NaCl 0.9% iv flush bag 20 mL INTRAVENOUS PRN Radha Mack APRN.PAYROLL SECRETARY sodium chloride 0.9 % (flush) 3-5 mL (BD POSIFLUSH) 3-5 mL INTRAVENOUS q 12 H Radha Mack APRN.PAYROLL SECRETARY 5 mL at 01/18/222014 aluminum-magnesium hydroxide-simethicone 200-200-20 mg/5 mL 30 mL (MAALOX,MYLANTA,MAG-AL PLUS) 30 mL ORAL DAILY PRN Rdaha Mack APRN.PAYROLL SECRETARY acetaminophen 650 mg tab(s) (TYLENOL) 650 mg ORAL q 6 H PRN Radha Mack APRN.PAYROLL SECRETARY 650 mg at 01/18/22 0818 insulin lispro injection (rapid acting) (ADMELOG) SUBCUTANEOUS AT BEDTIME Radah Mack APRN.PAYROLL SECRETARY 2 Units at 01/18/22 0123 hydrALAZINE 10 mg injection (APRESOLINE) 10 mg INTRAVENOUS q 6 H PRN Radha Mack APRN.PAYROLL SECRETARY lisinopril 20 mg tab(s) (ZESTRIL, PRINIVIL) 20 mg ORAL DAILY Radha Mack APRN.PAYROLL SECRETARY 20 mg at 01/18/22 0817 tamsulosin 0.4 mg cap(s) (FLOMAX) 0.4 mg ORAL AT BEDTIME Radha Mack APRN.PAYROLL SECRETARY 0.4 mg at 01/18/222014 enteric contrast (radiology procedure) ORAL DIRECTED PRN Kylah Orantes MD insulin lispro injection (rapid acting) (ADMELOG) SUBCUTANEOUS w MEALS Nusrat Nash APRN.PAYROLL SECRETARY 9 Units at 01/18/22 1729 pioglitazone 45 mg tab(s) (ACTOS) 45 mg ORAL DAILY Nusrat Nash APRN.PAYROLL SECRETARY 45 mg at 01/18/22 1218 insulin glargine 26 Units pen (long acting) (LANTUS SOLOSTAR, BASAGLAR KWIKPEN) 26 Units SUBCUTANEOUS AT BEDTIME Nusrat Nash APRN.PAYROLL SECRETARY 26 Units at 01/18/222015 docusate sodium 100 mg cap(s) (COLACE) 100 mg ORAL BID Nusrat Nash APRN.PAYROLL SECRETARY 100 mg at 01/18/222014 polyethylene glycol 3350 17 g packet (MIRALAX, GLYCOLAX) 17 g ORAL DAILY Nusrat Nash APRN.PAYROLL SECRETARY 17 g at 01/18/22 1222 [START ON 01/19/2022] venlafaxine ER 3 (more content not included)...[facility] [id number] History of Present illness Narrative* Jen Bergman RN - 01/18/2022 9:05 AM EDT PRIMARY CARE COORDINATION QUICK NOTE Patient identified by name and date . Pt admitted to [facility] yesterday. SBAR attached. Jen Bergman RN * Jen Bergman RN - 01/18/2022 8:57 AM EDT PRIMARY CARE COORDINATION SBAR PCC HAND IN José Manuel Ashton, 61 year old male SITUATION: Admitted for Psych Eval Hyperglycemic BACKGROUND: Living arrangements: Lives with Family - Brother and Sister Contact Name and phone number: Meche Sanders (Sister) - Health Manager Hospice: His siblings help Self Care/ADLs: Independent Mobility: Independent Barriers to care/Adherence: Financial Transportation Other - Pt states that he just doesn't want to take his meds or check his blood sugars RECOMMENDATIONS: Pt may need SNF Name of Pay Agent: Jen Bergman RN [facility] or [facility] office: [facility] (Dr. Vega, PCP) Phone number: [phone] documented in this encounterFirelands Regional Medical Center South Campus10-18-2022 NoteHNO ID: [id number] Author: Radha Mack APRN.LEX Service: Critical Care Author Type: Nurse Practitioner Type: Progress Notes Filed: 01/18/2022 12:35 AM Note Text: Resident Programs Assistant Coverage Note Patient Name: José Manuel Ashton This is a 61 year old male admitted for hyperglycemia without anion gap and psych eval. He was directed to come to the ED by his carpet weaver Dr. Kennedy for concern of patient's decrease willingness to take his medications and feelings of depression. He is admitted to the [facility] for glycemic control. Plan discussed with RN [...] SpO2 98% BMI 36.40 kg/m? Radha Mack APRN.PAYROLL SECRETARY January 18, 2022 12:32 [facility]10-17-2022 NoteCOVID 19 RESULT: SARS-CoV-2 (Agent of COVID-19) Not Detected by RT-PCR or equivalent method. This test has been authorized by FDA under an Emergency Use Authorization (EUA). INFLUENZA A PCR: Negative for Influenza A by RT-PCR INFLUENZA B PCR: Negative for Influenza B by RT-PCR RSV PCR: Negative for Respiratory Syncytial Virus (RSV) by PCRKansasan HospitalComment on above:Performed By: #### [id number] ####SIKHISM LABORATORYCLIA [id number] [address] [facility] 01-17-2022 Miscellaneous Notes* Behavorial Health Intake - OSCAR Pandya - 01/17/2022 8:50 PM EDT BEHAVIORAL HEALTH INTAKE NOTE SERVICE DATE: 01/17/2022 SERVICE TIME: 8:38 pm Nature of the crisis: Psychiatric evaluation for depression from Airfield Services Officer outpatient appointment Presenting Problem: José Manuel Ashton [...] and CKD stage 3a, brought in to [facility] from Outpatient Office by self for psychiatric evaluation for depression. Per ED note Pt sent by Dr Kennedy for psychiatric eval from appointment today Pt states he is having hard time understanding his medical dx and keeping up with his T2DM. " Per Dr. Kennedy [facility] note 01/17/2022 "He doesn't take any medications [...] He has a psychiatrist at [facility] [place], [place]." This keno writer / runner assessed patient via face to face who presents alert and oriented x 4, appears overweight and disheveled, speech is within normal limits appropriate to tone, prosody, melody, phonetic, and syntax, thought process is linear and organized, difficulty concentrating at times, and a poor historian,, mood is depressed with flat affect, with impaired judgement and insight into illness. Patient reports that his Airfield Services Officer sent him to the emergency room for [...] too many things going on . This keno writer / runner inquires if patient believes he will get [...] states that [place] not caring for himself. This keno writer / runner discussed with patientpotential for a [facility] nurse to come into home to assist with his medication management to ensure he is caring for self properly and taking medications. Patient has been calm and cooperative in the ED with no restraints or medications administered. This keno writer / runner spoke to ED physician, Dr. Rascon, who [...] quittin.8 Smokeless tobacco: Never Tobacco comments: Smokes [place] Vaping Use Vaping Use: Never used Substance [...] and before supper^Disp: 120 tablet^Rfl: 1 Insulin Bee, Disposable, (COMFORT EZ PEN NEEDLES) 29 gauge [...] are managed by this patient by: PATIENT Nusrat Joshua OA MEDICATION COMPLIANCE: No ALLERGIES Allergen Reactions [...] Legal History How Legal Issues Were Verified: [facility] Experiential Therapist of Courts Website;[facility]'s Sexual Offender Website Gender Specific Test: Not Applicable Sex at Time of : Male Patient Identified Gender: Male Preferred Pronoun: He/Him/His Sexual Orientation: Heterosexual Cultural/Pentecostal Concerns Cultural Issues or Concerns That Might Affect Treatment: NOne Pentecostal/Spiritual Issues or Concerns That Might Affect Treatment: None FAMILY HISTORY: FAMILY HISTORY Problem Relation Age of Onset other (Heart stroke) Mother other (Glaucoma lung cancer) Father Glaucoma Sister Glaucoma Brother OBSERVATIONS Level of Consciousness Alert: Yes Orientation: Person;Place;Time;Situation Physical Appearance Appears: Disheveled;Overweight Speech Rate: Appropriate Volume: Appropriate Quality: Appropriate to Topic Quantity: Appropriate Thought Processes Thought: Difficulty Concentrating;Poor Historian/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 Author Type: Physician Type: Progress Notes Filed: 01/17/2022 3:36 PM Note Text: [facility] NEPHROLOGY CONSULT NOTE Patient Name: José Manuel Ashton Consultation requested by Belgica Vega DO for an opinion regarding: CKD My final [...] He has a psychiatrist at [facility] [place]. PAST MEDICAL HISTORY: PAST MEDICAL HISTORY [...] quittin.8 Smokeless tobacco: Never Tobacco comments: Smokes [place] Vaping Use Vaping Use: Never used Substance Use Topics Alcohol use: Not Currently Drug use: Yes Types: Marijuana Comment: daily Single. No children. He lives with his brother and sister. (He moved back from [place]). 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 He [...] tablets before breakfast and before supper Insulin Bee, Disposable, (COMFORT EZ PEN NEEDLES) 29 gauge x 1/2" 1 Each once daily. insulin glargine (LANTUS SOLOSTAR, BASAGLAR KWIKPEN) 100 unit/mL (3 mL) Inject 26 Units subcutaneously daily at bedtime. buPROPion SR (WELLBUTRIN SR) 100 mg 12 hr tablet Take 1 tablet by mouth once daily. (more content not included)...[facility] [id number] Instructions* Patient Instructions* Billy Cody MD - 01/17/2022 3:14 PM EDT Advised to go to the ER for evaluation of depression. documented in this encounterFirelands Regional Medical Center South Campus10-17-2022 History of Present illness Narrative* Billy Cody MD - 01/17/2022 3:00 PM EDT Images from the original note were not included. [facility] NEPHROLOGY CONSULT NOTE Patient Name: José Manuel [...] He has a psychiatrist at [facility] [place]. PAST MEDICAL HISTORY: PAST MEDICAL HISTORY [...] quittin.8 Smokeless tobacco: Never Tobacco comments: Smokes [place] Vaping Use Vaping Use: Never used Substance Use Topics Alcohol use: Not Currently Drug use: Yes Types: Marijuana Comment: daily Single. No children. He lives with his brother and sister. (He moved back from [place]). 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 He [...] tablets before breakfast and before supper Insulin Bee, Disposable, (COMFORT EZ PEN NEEDLES) 29 gauge [...] 04/12/2021 5.0 5.0 - 8.0 Final Specific [place], Ur Date Value Ref Range Status 04/12/2021 [...] CC: Belgica Vega DO documented in this encounterFirelands Regional Medical Center South Campus10-14-2022 Miscellaneous Notes* Telephone Encounter - Simeon Vásquez - 01/14/2022 2:03 PM EDT Patient has cancelled surgery again due to ongoing kidney problems. Case has been cancelled out by Girma Vásquez and all scheduled PO appts. too documented in this encounterFirelands Regional Medical Center South Campus10-14-2022 Miscellaneous Notes* Telephone Encounter - Maria D [...] later date for rescheduling. 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 Signature Jen Bergman RN January 07, 2022 documented in this encounterFirelands Regional Medical Center South Campus10-03-2022 History of Present illness Narrative* Belgica Vega, - 01/03/2022 3:53 PM EDT Images from the original note were not included. Belgica Vega [address] [id number] Visit Date: January 03, 2022 Mr.Jim Najma Ashton Date of : 1960 MRN/E #: [id number] History of Present Illness José Manuel Ashton is a 61 year old male. Patient presents to the clinic today for follow-up hypertension, diabetes HPI Per appointment note patient has been stressed and depressed. Has not been taking his medication regularly Patient has history of hypertension and lower extremity edema.. BP today 141/85. BP during last office visit [id number]. during November 2021. 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 Pt admits hasnt [...] quittin.7 Smokeless tobacco: Never Tobacco comments: Smokes [place] Vaping Use Vaping Use: Never used Substance [...] breakfast and before supper 120tablet 1 Insulin Bee, Disposable, (COMFORT EZ PEN NEEDLES) 29 gauge [...] (A) 74 - 99 mg/dL Final Comment: Location:[facility] [place], [address] [place] [address], [facility] The Accu-Chek Inform II glucose meter [...] (A) 4.2 - 5.6 % Final Comment: Location:[facility], [address] [place] [address], [facility] Point of care (POC) Hemoglobin A1c [...] specific diabetes management situations: The POC device assembler movement provides a normal range of 4.2% to 6.5% for the HGBA1C POC test. However, the [place] Diabetes Association guidelines indicate that patients with [...] to the nearest ED. 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 Signature Jen Bergman RN December 28, 2021 documented in this encounterFirelands Regional Medical Center South Campus09-19-2022 NoteHNO ID: [id number] Author: Billy Cody MD Service: ? Author [...] symptoms (ex: edema, SOB): azotemia [facility] Billy Leon MD Staff Nephrology and Hypertension [facility] Pager# [phone] Health [facility] Hospital [id number] History of Present illness Narrative* Billy Cody [...] symptoms (ex: edema, SOB): azotemia [facility] Billy Leon MD Staff Nephrology and Hypertension [facility] Pager# [phone] documented in this encounterFirelands Regional Medical Center South Campus09-02-2022 History of Present illness Narrative* Jen Bergman [...] Weight mgmt/activity No change (09/23/2020) Concerns: N/A Licensed Veterinary Technician plan for next outreach: Will follow up in about 1 month. Signature Jen Bergman RN December 03, 2021 documented in this encounterFirelands Regional Medical Center South Campus08-30-2022 Miscellaneous Notes* Telephone Encounter - Maria D [...] in scheduling cataract surgery. documented in this encounterFirelands Regional Medical Center South Campus08-22-2022 Miscellaneous Notes* Telephone Encounter - Yarely Teixeira Pss - 11/22/2021 8:50 AM EDT Faxed letter to Belgica Vega DO [address] [address] [facility] [address] [address] documented in this encounterFirelands Regional Medical Center South Campus08-09-2022 Miscellaneous Notes* Telephone Encounter - Maria D [...] at a later date. documented in this encounterFirelands Regional Medical Center South Campus08-05-2022 History of Present illness Narrative* Belgica Vega DO - 11/05/2021 4:10 PM EDT Images from the original note were not included. Belgica Vega [address] [place] [address] Visit Date: November 05, 2021 Mr.Jim Najma Ashton Date of : 1960 MRN/E #: [id number] History of Present Illness José Manuel Ashton [...] Pt indicates having troubles scheduling, told by legal secretary receptionist not sure what kind of kidney [...] Smokeless tobacco: Never Used Tobacco comment: Smokes [place] Vaping Use Vaping Use: Never used Substance [...] breakfast and before supper 120tablet 1 Insulin Bee, Disposable, (COMFORT EZ PEN NEEDLES) 29 gauge [...] (A) 74 - 99 mg/dL Final Comment: Location:[facility] [place], [address] [place] [address], [facility] The Accu-Chek Inform II glucose meter [...] (A) 4.2 - 5.6 % Final Comment: Location:[facility], [address] [place] [address], [facility] Point of care (POC) Hemoglobin A1c [...] specific diabetes management situations: The POC device assembler movement provides a normal range of 4.2% to 6.5% for the HGBA1C POC test. However, the [place] Diabetes Association guidelines indicate that patients with [...] to the nearest ED. documented in this encounterFirelands Regional Medical Center South Campus08-05-2022 History of Present illness Narrative* Renetta Gannon MD - 11/05/2021 2:13 PM EDT (E11.7785) Mild nonproliferative diabetic retinopathy of both eyes [...] other activities of daily living. José Manuel Ashton has confirmed that he is no longer [...] patient was offered a [facility] The surgeon/proceduralist and patient have discussed [...] NO Previous refractive surgery: NO Preferred office: [place] Intracameral phenylephrine and vigamox Special notes sugars [...] management of this patient's care with the Resident/Fellow/Water Tester, if applicable. I also have reviewed and agree with the assessment and plan as stated above and agree with all of its relevant components. Renetta Gannon MD November 05, 2021 2:16 PM documented in this encounterFirelands Regional Medical Center South Campus08-01-2022 History of Present illness Narrative* Jen Bergman [...] Weight mgmt/activity No change (09/23/2020) Concerns: N/A Licensed Veterinary Technician plan for next outreach: Will follow up in about 3wks. Signature Jen Bergman RN November 01, 2021 documented in this encounterFirelands Regional Medical Center South Campus07-27-2022 History of Present illness Narrative* Noé Kennedy [...] (no units) Date Value 04/12/2021 3+ Specific [place], Ur (no units) Date Value 04/12/2021 1.025 [...] tablets before breakfast and before supper Insulin Bee, Disposable, (COMFORT EZ PEN NEEDLES) 29 gauge [...] Smokeless tobacco: Never Used Tobacco comment: Smokes [place] Vaping Use Vaping Use: Never used Substance [...] neg 02/17/2020 PSA 0.75, no Fhx of [place] Police Sergeant Assessment and Plan: Microhematuria- prior w/u neg. [...] Level: 4 - Moderate documented in this encounterFirelands Regional Medical Center South Campus07-26-2022 Miscellaneous Notes* Telephone Encounter - Nancy Howard - 10/26/2021 11:55 AM EDTSummary: Referral Follow up Images from the original note were not included. called pt mailbox full mailed letter documented in this [facility]07-14-2022 Miscellaneous Notes* Telephone Encounter - Alissa Bryson - 10/14/2021 3:56 PM EDT Called pt to [facility] colonoscopy with Gabby, mailbox is full, unable to lvm. Alissa Bryson documented in this [facility]07-05-2022 Miscellaneous Notes* Telephone Encounter - Nancy Howard - 10/05/2021 4:12 PM EDTSummary: Referral Referral to Nephrology Confirmation number: [id number] documented in this [facility]07-05-2022 History of Present illness Narrative* Belgica Vega DO - 10/05/2021 3:13 PM EDT Images from the original note were not included. Belgica Vega [address] [place] [address] Visit Date: October 05, 2021 Mr.Jim Najma Ashton Date of : 1960 MRN/E #: [id number] History of Present Illness José Manuel Ashton [...] Smokeless tobacco: Never Used Tobacco comment: Smokes [place] Vaping Use Vaping Use: Never used Substance [...] breakfast and before supper 120tablet 1 Insulin Bee, Disposable, (COMFORT EZ PEN NEEDLES) 29 gauge [...] (A) 74 - 99 mg/dL Final The [place] Diabetes Association (ADA) provides guidance for cutoff [...] Standards of Medical Care in Diabetes 2016, [place] Diabetes Association. Diabetes Care. 2016.39(Suppl 1). BUN [...] Desk Reference: National Heart, Lung, and Blood [place]. National Institutes of Health. 2001: NIH Publication [...] to the nearest ED. documented in this encounterFirelands Regional Medical Center [facility] Campus06-20-2022 Miscellaneous Notes* Telephone Encounter - Nancy Howard - 09/20/2021 2:16 PM EDT Images from the original note were not included. Referral to Ophthalmology Confirmation number: [id number] documented in this encounterFirelands Regional Medical Center South Campus06-20-2022 History of Present illness Narrative* Belgica Vega DO - 09/20/2021 1:23 PM EDT Transitional Care Management TCM Eligibility Documentation The following information was gathered during the initial Patient Outreach Encounter. No flowsheet data found. Summary Discharged from: [facility] Admit Date: 09/06/2021 Admitted for: [...] elevate their lower extremities while seated. 11. MEKIH (obstructive sleep apnea) - ICD9: 327.23, ICD10: [...] V80.2, ICD10: Z13.5 - CONSULT TO OPHTHALMOLOGY Belgica Vega DO September 20, 2021 1:23 PM documented in this encounterFirelands Regional Medical Center South Campus06-17-2022 History of Present illness Narrative* Jen Bergman [...] Weight mgmt/activity No change (09/23/2020) Concerns: N/A Licensed Veterinary Technician plan for next 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 Signature Jen Bergman RN September 17, 2021 documented in this encounterFirelands Regional Medical Center South Campus06-08-2022 History of Present illness Narrative* Jen Bergman RN - 09/08/2021 2:32 PM EDT PHYSICAL EDUCATION SPECIALIST EMERGENCY DEPARTMENT FOLLOW UP INITIAL CONTACT Initial contact with patient post discharge, spoke to pt. Patient identified by name and date : YES SUMMARY: -Patient discharged from [place] ED on 09/07/21. -Follow up appointment on [...] None BRIEF ED COURSE: Care Timeline 09/06 210 Arrived 2242 ketorolac tromethamine 15 mg 224 CBC + DIFF COMP METABOLIC PANEL LACTIC ACID/LACTATE VENOUS BLOOD GASES 2250 Ringer's solution,lactated 1000 mL doxycycline 100 mg in D5W 250 mL (VIBRAMYCIN) 100 mg 09/07 0033 insulin regular, human 5 Units 0127 GLUCOSE, BLOOD (POC) 0216 Discharged documented in this encounterFirelands Regional Medical Center [facility] Campus06-06-2022 History of Present illness Narrative* Jen Bergman [...] Weight mgmt/activity No change (09/23/2020) Concerns: N/A Licensed Veterinary Technician plan for next outreach: Will follow up in about 3wks. Signature Jen Bergman RN September 06, 2021 documented in this encounterFirelands Regional Medical Center [facility] Campus05-27-2022 History of Present illness Narrative* Janie Pickett, MOBILE PHONE SALESPERSON.PAYROLL SECRETARY - 08/27/2021 8:42 AM EDT Subjective Important [...] (38-113), AST and ALT ok Moved from [place] at some point. Was taking actos plus Metformin. Eventually Primary Care Provider Added basal insulin. 10/2020: first time office visit with Janie Pickett APRN.LEX for diabetes management. Previous diabetes related labs from [facility] reviewed prior to today's office visit. [...] Smokeless tobacco: Never Used Tobacco comment: Smokes [place] Vaping Use Vaping Use: Never used Substance [...] tablets before breakfast and before supper Insulin Bee, Disposable, (COMFORT EZ PEN NEEDLES) 29 gauge [...] this visit. Physical Exam documented in this [facility]05-13-2022 Miscellaneous Notes* Telephone Encounter - Fermin [...] 12, 2021 2:42 PM documented in this encounterFirelands Regional Medical Center [facility] Campus05-11-2022 History of Present illness Narrative* Belgica Vega DO - 08/11/2021 4:25 PM EDT Images from the original note were not included. Belgica Vega [address] [place] [address] Visit Date: August 11, 2021 Mr.Jim Najma Ashton Date of : 1960 MRN/E #: [id number] History of Present Illness José Manuel Ashton [...] Smokeless tobacco: Never Used Tobacco comment: Smokes [place] Vaping Use Vaping Use: Never used Substance [...] breakfast and before supper 120tablet 1 Insulin Bee, Disposable, (COMFORT EZ PEN NEEDLES) 29 gauge [...] 07/05/2021 1.97 1.00 - 4.00 k/uL Final [place]% 07/05/2021 7.0 % Final Abs [place] 07/05/2021 0.57 <0.87 k/uL Final [place]% 07/05/2021 [...] (A) 74 - 99 mg/dL Final The [place] Diabetes Association (ADA) provides guidance for cutoff [...] Standards of Medical Care in Diabetes 2016, [place] Diabetes Association. Diabetes Care. 2016.39(Suppl 1). BUN [...] Desk Reference: National Heart, Lung, and Blood [place]. National Institutes of Health. 2001: NIH Publication [...] 11.6 (A) 4.3 - 5.6 % Final [place] Diabetes Association guidelines indicate that patients with HgbA1c in the range 5.7-6.4% are at increased risk for development of diabetes, and intervention by lifestyle modification may be beneficial. HgbA1c greater or equal to 6.5% is considered diagnostic of diabetes. Estimated Average Glucose 07/05/2021 286 mg/dL Final eAG: (Estimated average glucose) is a calculated value from HgbA1c and is wholesale representative of the average blood glucose level [...] units of vitamin D daily,Which is available [id number] 7. Mixed hyperlipidemia - ICD9: 272.2, ICD10: [...] to the nearest ED. documented in this encounterFire[facility] History of Present illness Narrative* SWETHA Black Tech - 08/09/2021 3:40 PM EDT Radiology Service [...] 2021 TIME: 4:14 PM documented in this encounterFirelands [facility]05[facility] History of Present illness Narrative* Jen Bergman [...] his PCP appointment on 08/11/21 at 4p. Has an eye appointment on 08/13/21. No [...] Weight mgmt/activity No change (09/23/2020) Concerns: N/A Licensed Veterinary Technician plan for next outreach: Will follow up in about 3wks. Signature Jen Bergman RN August 05, 2021 documented in this encounterFirelands [facility]04-25-[facility]22 Miscellaneous Notes* Telephone Encounter - TAMMY Coffey [...] Thanks. Jen Bergman RN documented in this encounterFirelands [facility]04-21-2022 History of Present illness Narrative* Jen Bergman [...] Weight mgmt/activity No change (09/23/2020) Concerns: N/A Licensed Veterinary Technician plan for next 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 Signature Jen Bergman RN July 22, 2021 documented in this encounterFirelands [facility]04-05-2022 Miscellaneous Notes* Telephone Encounter - Belgica Vega DO - 07/06/2021 6:30 PM EDT Please notify patient received the labs, blood sugar was 397. Encourage patient to take Lantus nightly. Recommend patient follow-up with endocrinology Recommend if patient feels unwell that he call 911. Can discuss results at appointment Thank you, Belgica Vega D.O. documented in this encounterFirelands [facility]03-31-2022 History of Present illness Narrative* Janie Pickett, AIDAN.[employer] - 07/01/2021 8:41 AM EDT Subjective Important [...] AST ALT Alkaline Phosphatase ok Moved from [place] at some point. Was taking actos plus Metformin. Eventually Primary Care Provider Added basal insulin. 10/2020: first time office visit with Janie Pickett APRN.[employer] SECRETARY for diabetes management. [facility] prior to today's office visit. [...] Smokeless tobacco: Never Used Tobacco comment: Smokes [place] Vaping Use Vaping Use: Never used Substance [...] 1 tablet by mouth once daily. Insulin Bee, Disposable, (COMFORT EZ PEN NEEDLES) 29 gauge x 1/2" 1 Each once daily. alcohol swabs (ALCOHOL PREP PADS) Apply 1 application to affected area as directed. Objective There were no vitals taken for this visit. Physical Exam documented in this encounterFirelands [facility]12-06-2021 History of Past illness Narrative* Problem Noted Date Resolved Date Microscopic hematuria 03/08/2021 01/17/2022 Weakness 05/05/2020 06/15/2020 Decreased mobility and endurance 05/05/2020 06/15/2020 documented as of this encounter (statuses as of 01/17/2022) [facility] History of Past illness Narrative* Problem Noted Date Resolved Date Microscopic hematuria 03/08/2021 01/17/2022 Weakness 05/05/2020 06/15/2020 Decreased mobility and endurance 05/05/2020 06/15/2020 documented as of this encounter (statuses as of 01/18/2022) [facility] History of Past illness Narrative* Problem Noted Date Resolved Date Microscopic hematuria 03/08/2021 01/17/2022 Weakness 05/05/2020 06/15/2020 Decreased mobility and endurance 05/05/2020 06/15/2020 documented as of this encounter (statuses as of 01/18/2022) [facility] History of Past illness Narrative* Problem Noted Date Resolved Date Weakness 05/05/2020 06/15/2020 Decreased mobility and endurance 05/05/2020 06/15/2020 documented as of this encounter (statuses as of 07/01/2021) [facility] History of Past illness Narrative* Problem Noted Date Resolved Date Weakness 05/05/2020 06/15/2020 Decreased mobility and endurance 05/05/2020 06/15/2020 documented as of this encounter (statuses as of 07/06/2021) [facility] History of Past illness Narrative* Problem Noted Date Resolved Date Weakness 05/05/2020 06/15/2020 Decreased mobility and endurance 05/05/2020 06/15/2020 documented as of this encounter (statuses as of 07/22/2021) [facility] History of Past illness Narrative* Problem Noted Date Resolved Date Weakness 05/05/2020 06/15/2020 Decreased mobility and endurance 05/05/2020 06/15/2020 documented as of this encounter (statuses as of 07/26/2021) [facility] of Past illness Narrative* Problem Noted Date Resolved Date Weakness 05/05/2020 06/15/2020 Decreased mobility and endurance 05/05/2020 06/15/2020 documented as of this encounter (statuses as of 08/05/2021) [facility] History of Past illness Narrative* Problem Noted Date Resolved Date Weakness 05/05/2020 06/15/2020 Decreased mobility and endurance 05/05/2020 06/15/2020 documented as of this encounter (statuses as of 08/10/2021) [facility] of Past illness Narrative* Problem Noted Date Resolved Date Weakness 05/05/2020 06/15/2020 Decreased mobility and endurance 05/05/2020 06/15/2020 documented as of this encounter (statuses as of 08/11/2021) [facility] of Past illness Narrative* Problem Noted Date Resolved Date Weakness 05/05/2020 06/15/2020 Decreased mobility and endurance 05/05/2020 06/15/2020 documented as of this encounter (statuses as of 08/13/2021) [facility] of Past illness Narrative* Problem Noted Date Resolved Date Weakness 05/05/2020 06/15/2020 Decreased mobility and endurance 05/05/2020 06/15/2020 documented as of this encounter (statuses as of 08/27/2021) [facility] of Past illness Narrative* Problem Noted Date Resolved Date Weakness 05/05/2020 06/15/2020 Decreased mobility and endurance 05/05/2020 06/15/2020 documented as of this encounter (statuses as of 09/06/2021) [facility] of Past illness Narrative* Problem Noted Date Resolved Date Weakness 05/05/2020 06/15/2020 Decreased mobility and endurance 05/05/2020 06/15/2020 documented as of this encounter (statuses as of 09/08/2021) [facility] of Past illness Narrative* Problem Noted Date Resolved Date Weakness 05/05/2020 06/15/2020 Decreased mobility and endurance 05/05/2020 06/15/2020 documented as of this encounter (statuses as of 09/17/2021) [facility] of Past illness Narrative* Problem Noted Date Resolved Date Weakness 05/05/2020 06/15/2020 Decreased mobility and endurance 05/05/2020 06/15/2020 documented as of this encounter (statuses as of 09/20/2021) [facility] of [facility] illness Narrative* Problem Noted Date Resolved Date Weakness 05/05/2020 06/15/2020 Decreased mobility and endurance 05/05/2020 06/15/2020 documented as of this encounter (statuses as of 09/20/2021) [facility] of Past illness Narrative* Problem Noted Date Resolved Date Weakness 05/05/2020 06/15/2020 Decreased mobility and endurance 05/05/2020 06/15/2020 documented as of this encounter (statuses as of 10/05/2021) [facility] of Past illness Narrative* Problem Noted Date Resolved Date Weakness 05/05/2020 06/15/2020 Decreased mobility and endurance 05/05/2020 06/15/2020 documented as of this encounter (statuses as of 10/05/2021) [facility] of Past illness Narrative* Problem Noted Date Resolved Date Weakness 05/05/2020 06/15/2020 Decreased mobility and endurance 05/05/2020 06/15/2020 documented as of this encounter (statuses as of 10/14/2021) [facility] of Past illness Narrative* Problem Noted Date Resolved Date Weakness 05/05/2020 06/15/2020 Decreased mobility and endurance 05/05/2020 06/15/2020 documented as of this encounter (statuses as of 10/26/2021) [facility] of [facility] illness Narrative* Problem Noted Date Resolved Date Weakness 05/05/2020 06/15/2020 Decreased mobility and endurance 05/05/2020 06/15/2020 documented as of this encounter (statuses as of 10/27/2021) [facility] Narrative* Problem Noted Date Resolved Date Weakness 05/05/2020 06/15/2020 Decreased mobility and endurance 05/05/2020 06/15/2020 documented as of this encounter (statuses as of 11/01/2021) [facility] Narrative* Problem Noted Date Resolved Date Weakness 05/05/2020 06/15/2020 Decreased mobility and endurance 05/05/2020 06/15/2020 documented as of this encounter (statuses as of 11/05/2021) [facility] Narrative* Problem Noted Date Resolved Date Weakness 05/05/2020 06/15/2020 Decreased mobility and endurance 05/05/2020 06/15/2020 documented as of this encounter (statuses as of 11/09/2021) [facility] of [facility] illness Narrative* Problem Noted Date Resolved Date Weakness 05/05/2020 06/15/2020 Decreased mobility and endurance 05/05/2020 06/15/2020 documented as of this encounter (statuses as of 11/18/2021) [facility] of [facility] illness Narrative* Problem Noted Date Resolved Date Weakness 05/05/2020 06/15/2020 Decreased mobility and endurance 05/05/2020 06/15/2020 documented as of this encounter (statuses as of 11/22/2021) [facility] Narrative* Problem Noted Date Resolved Date Weakness 05/05/2020 06/15/2020 Decreased mobility and endurance 05/05/2020 06/15/2020 documented as of this encounter (statuses as of 11/30/2021) [facility] Narrative* Problem Noted Date Resolved Date Weakness 05/05/2020 06/15/2020 Decreased mobility and endurance 05/05/2020 06/15/2020 documented as of this encounter (statuses as of 12/03/2021) [facility] Narrative* Problem Noted Date Resolved Date Weakness 05/05/2020 06/15/2020 Decreased mobility and endurance 05/05/2020 06/15/2020 documented as of this encounter (statuses as of 12/20/2021) [facility] of [facility] illness Narrative* Problem Noted Date Resolved Date Weakness 05/05/2020 06/15/2020 Decreased mobility and endurance 05/05/2020 06/15/2020 documented as of this encounter (statuses as of 12/28/2021) [facility] Narrative* Problem Noted Date Resolved Date Weakness 05/05/2020 06/15/2020 Decreased mobility and endurance 05/05/2020 06/15/2020 documented as of this encounter (statuses as of 01/04/2022) [facility] Narrative* Problem Noted Date Resolved Date Weakness 05/05/2020 06/15/2020 Decreased mobility and endurance 05/05/2020 06/15/2020 documented as of this encounter (statuses as of 01/07/2022) [facility] Narrative* Problem Noted Date Resolved Date Weakness 05/05/2020 06/15/2020 Decreased mobility and endurance 05/05/2020 06/15/2020 documented as of this encounter (statuses as of 01/14/2022) [facility] Narrative* Problem Noted Date Resolved Date Weakness 05/05/2020 06/15/2020 Decreased mobility and endurance 05/05/2020 06/15/2020 documented as of this encounter (statuses as of 01/14/2022) [facility] Narrative* Problem Noted Date Diagnosed Date Resolved Date Weakness 05/05/2020 06/15/2020 Decreased mobility and endurance 05/05/2020 06/15/2020 documented as of this encounter (statuses as of 02/07/2023) [facility] Diagnosis Malignant neoplasm of rectosigmoid junction (HCC) Malignant neoplasm of rectosigmoid junction [facility] encounter [facility] Diagnosis Diabetes mellitus due to underlying [...] Unspecified essential hypertension [facility] Diagnosis Hospital discharge follow-up- Primary Other [...] other eye conditions [facility] encounter [facility] Diagnosis Abscess of neck- Primary Cellulitis [...] 35-39.9 Obesity, unspecified documented [facility]* Diagnosis Benign prostatic hyperplasia with nocturia- Primary Hematuria, microscopic Microscopic hematuria Screening PSA (prostate specific antigen) Special screening for malignant neoplasm of prostate Nocturia documented in this encounter [facility]* Diagnosis Hypertension, essential- Primary Unspecified essential [...] of both eyes [facility] Diagnosis Glaucoma suspect of both eyes- Primary Preglaucoma, 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 without macular edema associated with type 2 diabetes mellitus (HCC) Nuclear senile cataract of both eyes documented [facility] this encounter [facility]* Diagnosis Hypertension, essential- Primary Unspecified essential hypertension Bilateral leg edema Edema Diabetes mellitus due to underlying condition, uncontrolled, with hyperglycemia ([facility]) H/O medication noncompliance Personal history of [...] of right eye documented [facility] this encounter [facility]* Diagnosis Stage 3a chronic kidney disease [...] major depressive disorder, without psychotic features (HCC) documented in this encounter [facility] note* Diagnosis Current moderate episode of major depressive disorder without prior episode (HCC)- Primary documented in this encounter [facility] note* Diagnosis Episode of recurrent major depressive disorder, unspecified depression episode severity (HCC)- Primary documented in this encounter [facility] note* Diagnosis Hypertension, essential- Primary Unspecified essential [...] mood disorder Stage 3a chronic kidney disease (HCC) Encounter for immunization Need for other specified prophylactic vaccination against single bacterial disease documented in this encounter [facility] note* Diagnosis Needs assistance with community resources- Primary Distressed about housing issues Other specified housing or economic circumstances documented in this encounter [facility] note* Diagnosis Hospital discharge follow-up- Primary Other [...] of insulin (HCC) documented [facility] this encounter [facility]* Diagnosis Nocturia Screening PSA (prostate specific antigen) Special screening for malignant neoplasm of prostate Hematuria, microscopic Microscopic hematuria Benign prostatic hyperplasia with nocturia documented in this encounter [facility] Diagnosis Hypertension, essential- Primary Unspecified essential [...] unspecified vomiting type documented in this encounter [facility]* Diagnosis History of rectal cancer- Primary Personal history of malignant neoplasm of rectum, rectosigmoid junction, and anus Pulmonary nodules Other nonspecific abnormal finding of lung field Hip pain Pain in joint, pelvic region and thigh Spinal stenosis of lumbar region with neurogenic claudication Spinal stenosis, lumbar region, with neurogenic claudication [facility] Diagnosis OPENED IN ERROR- Primary To allow closing an encounter opened in error (used in SmartSet) documented in this encounter [facility] Diagnosis Hypertension, essential- Primary Unspecified essential [...] extremity edema Edema [facility] Diagnosis Pain in hip- Primary Pain in joint, pelvic region and thigh Lumbar back pain with radiculopathy affecting lower extremity Chronic left hip pain Pain in joint, pelvic region and thigh documented in this encounter [facility] Diagnosis Nuclear senile cataract of both eyes- Primary Pain of left hip documented in this encounter [facility]* Diagnosis Encounter for annual physical exam- [...] of right eye documented in this encounter [facility] Diagnosis Chronic left hip pain Pain in joint, pelvic region and thigh Nuclear senile cataract of right eye [facility] Diagnosis Chronic left hip pain Pain in joint, pelvic region and thigh Nuclear senile cataract of right eye [facility] Diagnosis History of rectal cancer- Primary Personal history of malignant neoplasm of rectum, rectosigmoid junction, and anus Nuclear senile cataract of right eye documented in this encounter [facility] Diagnosis Lumbar back pain with radiculopathy affecting lower extremity- Primary Chronic left hip pain Pain in joint, pelvic region and thigh Spinal stenosis of lumbar region, unspecified whether neurogenic claudication present Lumbar radiculopathy Thoracic or lumbosacral neuritis or radiculitis, unspecified Chronic bilateral low back pain with left-sided sciatica Nuclear senile cataract of right eye documented in this encounter [facility] Diagnosis Pseudophakia of both eyes- Primary Lens replaced by other means documented in this encounter [facility] [facility] Diagnosis Lumbar back pain with radiculopathy affecting lower extremity- Primary Chronic bilateral low back pain with left-sided sciatica Lumbar back pain with radiculopathy affecting lower extremity- Primary documented in this encounter [facility] Diagnosis Hospital discharge follow-up- Primary Other [...] lower extremity- Primary documented in this encounter [facility] Diagnosis Pain in left hip- Primary Pain in joint, pelvic region and thigh documented in this encounter [facility] Diagnosis Precordial pain- Primary OTT (dyspnea on exertion) Other dyspnea and respiratory abnormality Primary hypertension Unspecified essential hypertension Dyslipidemia Other and unspecified hyperlipidemia Demand ischemia (HCC) Other acute and subacute form of ischemic heart disease documented in this encounter [facility]* Diagnosis Nocturia- Primary Benign prostatic hyperplasia with nocturia documented in this encounter [facility] Diagnosis Cutaneous abscess of abdominal wall- [...] Unspecified essential hypertension documented in this encounter [facility] Diagnosis OTT (dyspnea on exertion) Other dyspnea and respiratory abnormality documented in this encounter [facility] Diagnosis Precordial pain OTT (dyspnea on exertion) Other dyspnea and respiratory abnormality Primary hypertension Unspecified essential hypertension documented in this encounter [facility] Diagnosis Hypertension, essential- Primary Unspecified essential [...] or radiculitis, unspecified [facility] Diagnosis Primary osteoarthritis of left hip- Primary Primary localized osteoarthrosis, pelvic region and thigh Primary osteoarthritis of left hip Primary localized osteoarthrosis, pelvic region and thigh documented [facility] this encounter [facility] Diagnosis Poorly controlled type 2 diabetes mellitus ([facility]) Type II or unspecified type diabetes mellitus without mention of complication, not stated as uncontrolled documented [facility] this encounter [facility] Diagnosis Anemia of renal disease- Primary Anemia in chronic kidney disease Stage 3b chronic kidney disease (HCC) Vitamin D deficiency Unspecified vitamin D deficiency Other proteinuria documented in this encounter [facility] Diagnosis Nocturia- Primary Benign prostatic hyperplasia with nocturia Screening PSA (prostate specific antigen) Special screening for malignant neoplasm of prostate documented [facility] this encounter [facility] Diagnosis Type 2 diabetes mellitus with both eyes affected by moderate nonproliferative retinopathy without macular edema, with long-term current use of insulin ([facility])- Primary Pseudophakia of both eyes Lens replaced by other means [facility] this encounter [facility] Diagnosis Anemia of renal disease- Primary Anemia in chronic kidney disease Stage 3b chronic kidney disease (HCC) Vitamin D deficiency Unspecified vitamin D deficiency Other proteinuria 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 ([facility]) Type II or unspecified type diabetes mellitus with renal manifestations, not stated as uncontrolled Dietary counseling and surveillance Dietary surveillance and counseling Hyperkalemia Hyperpotassemia Hypertension, essential Unspecified essential hypertension Hyperuricemia Other abnormal blood chemistry Secondary renal hyperparathyroidism (HCC) Secondary hyperparathyroidism (of renal origin) documented in this encounter [facility] note* Diagnosis History of rectal cancer- Primary Personal history of malignant neoplasm of rectum, rectosigmoid junction, and anus documented in this encounter [facility] note* Diagnosis Other specified postprocedural states- Primary Spinal stenosis, lumbar region with neurogenic claudication documented in this encounter [facility] note* Diagnosis Pre-op examination- Primary Preoperative examination, [...] Assessment & Plan Note - Rebecca Corey APRN.PAYROLL SECRETARY - 05/13/2024 11:21 AM EST Associated Problem(s): [...] at today's visit. [facility] Diagnosis Pre-op examination- Primary Preoperative examination, [...] and bone disorder [facility] Diagnosis Pre-op examination- Primary Preoperative examination, [...] chemistry Other proteinuria [facility] noteNo assessment information availableWPremier Health [facility] Work Phone: Evaluation note* Diagnosis Chills- Primary Chills (without fever) Chills Chills (without fever) Shakes Abnormal involuntary movements History of chronic renal failure Elevated lactic acid level Chronic pain syndrome documented in this encounter [facility] Plan of care note* Visit Details Visit Type -SN SOC Discipline -Long Term Problems Problem Description Start Date Status Goals [...] Disciplines: 10/22/2023 Active 1 goal linked to scheduled/documen kurt intervention 1 goal intervention scheduled/document ed in this visit SN Ortho Procedure/Surgery Disciplines: 10/22/2023 Active 1 goal linked to scheduled/documen [...] indicated to help with indigestion. Taking an rqnc-jtc-zqfneey probiotic or eating yogurt with live and [...] precautions/restrictio ns:spinal precautions documented in this encounter [facility]'s home Plan of care note* Visit Details Visit Type -HAIR MIXER EVAL Discipline -Toucher Up Problems Problem Description Start Date Status Goals Interve ntions HAIR MIXER Referral Disciplines: Skilled Services 10/22/2023 Resolved on 10/26/2023 1 goal linked to scheduled/documen kurt intervention 1 goal intervention scheduled/document ed in this visit HAIR MIXER Balance Wheel Hand Filer Care Needs Disciplines: HAIR MIXER 10/26/2023 Resolved on 10/26/2023 1 goal linked to scheduled/documen kurt intervention 1 goal intervention scheduled/document ed in this visit HAIR MIXER General Evaluation and Treatment Disciplines: HAIR MIXER 10/26/2023 Resolved on 10/26/2023 1 goal linked to scheduled/documen kurt intervention 1 goal intervention scheduled/document ed in this visit HAIR MIXER Social/Emotional Support Disciplines: HAIR MIXER 10/26/2023 Resolved on 10/26/2023 1 goal linked to scheduled/documen kurt intervention 1 goal intervention scheduled/document ed in this visit HAIR MIXER Caregiver Willingness Disciplines: HAIR MIXER 10/26/2023 Resolved on 10/26/2023 1 goal linked to scheduled/documen kurt intervention 1 goal intervention scheduled/document ed in this visit Goals Goal Associated Problem Outcome Goal Met? Visit Notes Patient will be referred to additional discipline as needed HAIR MIXER Referral Completed Yes Patients Half-Way Care Needs Will Be Met Description: Patients chcf care needs will be met by information provided and referrals made. HAIR MIXER Half-Way Care Needs Completed Yes Complete General Evaluation and Treatment Description: patient and caregiver will demonstrate compliance with and participation in the plan of treatment. HAIR MIXER General Evaluation and Treatment Completed Yes Provide Social/Emotional Support Description: patient will have adequate social emotional support as evidence by consistent contact with family and friends. HAIR MIXER Social/Emotional Support Completed Yes Determine Caregiver Willingness to Care for Patient Description: Caregiver will demonstrate willingness and ability to adequately care for the patient as evidence by providing a safe home environment and providing assistance with all ADL/IADL needs. HAIR MIXER Caregiver Willingness Completed Yes Interventions Intervention Associated Problem/Goal Status Variance Visit Notes HAIR MIXER evaluation and treatment Description: HAIR MIXER Referral eval and treat for Community Resources-"global or Mom's meals?, eligible for PASSPORT. Pt could use both for personal care and homemaking assist. Problem:HAIR MIXER Referral Goal:Patient will be referred to additional discipline as needed Completed collar stay fuser tender care planning Problem:HAIR MIXER Balance Wheel Hand Filer Care Needs Goal:Patients Half-Way Care Needs Will Be Met Completed Patients ch[facility] care needs will be met by information provided and referral made to [facility] for PASSPORT. HAIR MIXER Assessment Problem:HAIR MIXER General Evaluation and Treatment Goal:Complete General Evaluation and Treatment Completed patient and caregiver fully participated in plan of treatment. Adequate social/emotional support Problem:HAIR MIXER Social/Emotional Support Goal:Provide Social/Emotional Support Completed patient has adequate natural supports. Caregiver Instruction Problem:HAIR MIXER Caregiver Willingness Goal:Determine Caregiver Willingness to Care for Patient Completed Caregiver demonstrates willingness and demonstrates ability to assitst in patients ADLs/IADLs needs. documented in this encounter [facility]'s home Plan of care note* Visit Details Visit Type -SN ROUTINE Discipline -Long Term Problems Problem Description Start Date Status Goals [...] in this visit SN Integumentary/Wound s Disciplines: 10/22/2023 Active 1 goal linked to [...] and symptoms of complications Other (specify reason) LYLE, incision dry Instruct on diabetes disease process [...] no blood return [facility] Visit Details [...] scheduled/docume nted intervention 1 goal intervention scheduled/documen krut in this visit PT Impaired gait Disciplines: [...] to call provider. 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 [facility]* Visit Details Visit Type -SN ROUTINE Discipline -Long Term Problems Problem Description Start Date Status Goals [...] home, and adhere to medication schedule by 9/18/24. Medication Education No Improved management of mental [...] and spinal precautions [facility]* Visit Details [...] x 4 min [facility]* Visit Details Visit Type -INSOLVENCY CONSULTANT ROUTINE Discipline -Physical Therapy Problems Problem Description [...] balance exercises including side stepping at railing 08/05. Instruct on orthopedic bracing Description: Orthopedic bracing [...] and activity guidelines. documented in this encounter [facility]'s home Plan of care note* Visit Details Visit Type -INSOLVENCY CONSULTANT ROUTINE Discipline -Physical Therapy Problems Problem Description [...] and activity guidelines. documented in this encounter [facility]'s home Plan of care note* Visit Details Visit Type -SN ROUTINE Discipline -Long Term Problems Problem Description Start Date Status Goals [...] visit SN Cardiovascular Condition Disciplines: SN 10/22/2023 Resolved on 11/10/2023 1 goal linked [...] and spinal precautions [facility]* Visit Details [...] occasional unilateral support documented in this encounter [facility] home Plan of care note* Visit Details Visit Type -INSOLVENCY CONSULTANT ROUTINE Discipline -Physical Therapy Problems Problem Description [...] and activity guidelines. documented in this encounter [facility] home Plan of care note* Visit Details Visit Type -SN DISC DC W VIS IT Discipline -Long Term Problems Problem Description Start Date Status Goals [...] and spinal precautions [facility]* Visit Details [...] home exercise program. documented in this encounter [facility] for referral (narrative)* Diagnostic Procedure Only (Routine) - Authorized Specialty Diagnoses / Procedures Referred By Contac t Referred To Contact XR IMAGING Diagnoses Pain in hip Chronic left hip pain Procedures XR INJ ARTHROGRAM HIP LEFT INJECTION HIP ARTHROGRAPHY W/O ANESTHESIA Binh Lake DO [address] [place] [address] Xr Imaging Referral ID Status Reason Start Date Expiration Date Visits Requested Visits Authorized [id number] Authorized Auto-Generat ed Referral 07/01/2022 07/31/2023 1 1 * MRI/CT (Routine) - Authorized Specialty Diagnoses / Procedures Referred By Contac t Referred To Contact MR IMAGING Diagnoses Pain in hip Chronic left hip pain Procedures MRI ARTHROGRAM HIP LEFT MRI ANY JT LOWER EXTREM W/CONTRAST MATERIAL Binh Lake DO [address] [place] [address] Mr Imaging Referral ID Status Reason Start Date Expiration Date Visits Requested Visits Authorized [id number] Authorized Auto-Generat ed Referral 07/01/2022 07/31/2023 1 1 * Diagnostic Procedure Only (Routine) - Pending Review Specialty Diagnoses / Procedures Referred By Contac t Referred To Contact XR IMAGING Diagnoses Lumbar back pain with radiculopathy affecting lower extremity Procedures XR LUMBAR LIMITED 2V AP/LAT RADEX SPINE LUMBOSACRAL 2/3 VIEWS Binh Lake DO [address] [place] [address] Xr Imaging Referral ID Status Reason Start Date Expiration Date Visits Requested Visits Authorized [id number] Pending Review Auto-Generat ed Referral 07/01/2022 07/31/2023 1 1 * Diagnostic Procedure Only (Routine) - Pending Review Specialty Diagnoses / Procedures Referred By Contac t Referred To Contact XR IMAGING Diagnoses Pain in hip Chronic left hip pain Procedures XR PELVIS 1V AP RADIOLOGIC EXAMINATION PELVIS 1/2 VIEWS Binh Lake DO [address] [place] [address] Xr Imaging Referral ID Status Reason Start Date Expiration Date Visits Requested Visits Authorized [id number] Pending Review Auto-Generat ed Referral 07/01/2022 07/31/2023 1 1 [facility] for referral (narrative)* Diagnostic Procedure Only (Routine) - Closed Specialty Diagnoses / Procedures Referred By Contac t Referred To Contact XR IMAGING Diagnoses Pain in hip Chronic left hip pain Procedures XR INJ ARTHROGRAM HIP LEFT INJECTION HIP ARTHROGRAPHY W/O ANESTHESIA Binh Lake DO [address] [place] [address] Xr Imaging Referral ID Status Reason Start Date Expiration Date V isits Requested Visits Authorized [id number] Closed Auto-Generate d Referral 07/01/2022 07/31/2023 1 1 T [facility] for referral (narrative)* Outpatient Procedure (Routine) - Pending Review Specialty Diagnoses / Procedures Referred By Contac t Referred To Contact [facility] Diagnoses History of rectal cancer Procedures COLONOSCOPY SCREENING COLONOSCOPY FLX DX W/COLLJ SPEC WHEN Artem Osborne MD [address] [address] [facility] [address] [place] [address] Referral ID Status Reason Start Date Expiration Date Visits Requested Visits Authorized [id number] Pending Review Auto-Generat ed Referral 09/02/2022 09/03/2023 1 1 [facility] for referral (narrative)* Outpatient Procedure (Routine) - Authorized Specialty Diagnoses / Procedures Referred By Vadim t Referred To Contact [facility] Diagnoses OTT (dyspnea on exertion) Procedures ECHO ECHO TTHRC R-T 2D W/WOM-MODE COMPL SPEC&COLR D Sukumar Toney MD [address] [place] [address] [facility] [place] [address] [place] [address] Referral ID Status Reason Start Date Expiration Date Visits Requested Visits Authorized [id number] Authorized Auto-Generat ed Referral 10/13/2022 10/13/2023 1 1 * Diagnostic Procedure Only (Routine) - Authorized Specialty Diagnoses / Procedures Referred By Vadim wiseman Referred To Contact [facility] Diagnoses Precordial pain OTT (dyspnea on exertion) Primary hypertension Procedures NM CARDIAC PERF STRESS/PHARM MYOCARDIAL SPECT MULTIPLE STUDIES Sukumar Toney MD [address] [place] [address] [facility] [address] [place] [address] Referral ID Status Reason Start Date Expiration Date Visits Requested Visits Authorized [id number] Authorized Auto-Generat ed Referral 10/13/2022 11/12/2023 1 1 [facility] for referral (narrative)* Outpatient Procedure (Routine) - Closed Specialty Diagnoses / Procedures Referred By Vadim t Referred To Contact [facility] Diagnoses OTT (dyspnea on exertion) Procedures ECHO ECHO TTHRC R-T 2D W/WOM-MODE COMPL SPEC&COLR D Sukumar Toney MD [address] [place] [address] [facility] [address] [place] [address] Referral ID Status Reason Start Date Expiration Date V isits Requested Visits Authorized [id number] Closed Auto-Generate d Referral 10/13/2022 10/13/2023 1 1 [facility] for referral (narrative)* Diagnostic Procedure Only (Routine) - Closed Specialty Diagnoses / Procedures Referred By Vadim t Referred To Contact [facility] Diagnoses Precordial pain OTT (dyspnea on exertion) Primary hypertension Procedures NM CARDIAC PERF STRESS/PHARM MYOCARDIAL SPECT MULTIPLE STUDIES Sukumar Toney MD [address] [place] [address] [facility] [address] [place] [phone] Referral ID Status Reason Start Date Expiration Date V isits Requested Visits Authorized [id number] Closed Auto-Generate d Referral 10/13/2022 11/12/2023 1 1 [facility] for referral (narrative)* Outpatient Procedure (Routine) - Pending Review Specialty Diagnoses / Procedures Referred By Vadim wiseman Referred To Contact [facility] Diagnoses History of rectal cancer Procedures COLONOSCOPY SCREENING COLONOSCOPY FLX DX W/COLLJ SPEC WHEN PFRMD Artem Ahmadi MD 1 [facility] [address] [place] [address] [facility] [address] [place] [phone] Referral ID Status Reason Start Date Expiration Date Visits Requested Visits Authorized [id number] Pending Review Auto-Generat ed Referral 4 02/19/2025 1 1 [facility] for referral (narrative)No reason for referral information availableWPremier Health [facility] Work Phone: Reason for visit Narrative* Diagnostic Procedure Only (Routine) - Closed Specialty Diagnoses / Procedures Referred By Vadim t Referred To Contact XR IMAGING Diagnoses Pain in hip Chronic left hip pain Procedures XR INJ ARTHROGRAM HIP LEFT INJECTION HIP ARTHROGRAPHY W/O ANESTHESIA Binh Lake, DO [address] [place] [address] Xr Imaging Referral ID Status Reason Start Date Expiration Date V isits Requested Visits Authorized [id number] Closed Auto-Generate d Referral 07/01/2022 07/31/2023 1 1 [facility] for visit Narrative* Outpatient Procedure (Routine) - Closed Specialty Diagnoses / Procedures Referred By Vadim t Referred To Contact [facility] Diagnoses OTT (dyspnea on exertion) Procedures ECHO ECHO TTHRC R-T 2D W/WOM-MODE COMPL SPEC&COLR D Sukumar Toney MD [address] [place] [address] [facility] [address] [place] [address] Referral ID Status Reason Start Date Expiration Date V isits Requested Visits Authorized [id number] Closed Auto-Generate d Referral 10/13/2022 10/13/2023 1 1 [facility] for visit Narrative* Diagnostic Procedure Only (Routine) - Closed Specialty Diagnoses / Procedures Referred By Vadim t Referred To Contact [facility] Diagnoses Precordial pain OTT (dyspnea on exertion) Primary hypertension Procedures NM CARDIAC PERF STRESS/PHARM MYOCARDIAL SPECT MULTIPLE STUDIES Sukumar Toney MD [address] [place] [address] [facility] [address] [place] [phone] Referral ID Status Reason Start Date Expiration Date V isits Requested Visits Authorized [id number] Closed Auto-Generate d Referral 10/13/2022 11/12/2023 1 1 [facility] for visit Narrative* Outpatient Procedure (Routine) - Closed Specialty Diagnoses / Procedures Referred By Vadim t Referred To Contact Diagnoses History of rectal cancer Procedures COLONOSCOPY SCREENING COLONOSCOPY FLX DX W/COLLJ SPEC WHEN Artem Osborne MD [address] [place] [address] Phone: tel: fax: [address] [address] Phone: tel: Referral ID Status Reason Start Date Expiration Date V isits Requested Visits Authorized [id number] Closed Auto-Generate d Referral 05/13/2024 08/11/2024 1 1 [facility] Reason for Referral Status Reason Specialty Diagnoses / Procedures Referred By Contact Referred To Contact Ref Not Required PCP Requested Referral Diagnoses Anxiety with depression Procedures CONSULT [facility] Belgica Herrera [facility] [place] [address] Status Reason Specialty Diagnoses / Procedures Referred By Contact Referred To Contact Ref Not Required PCP Requested Referral Diagnoses Chronic bilateral low back pain with sciatica, sciatica laterality unspecified Procedures CONSULT TO PHYSICAL THERAPY (AG) Belgica Herrera [facility] [place] [address] Status Reason Specialty Diagnoses / Procedures Referred By Contact Referred To Contact Authorized PCP Requested Referral Orthopedics Diagnoses Chronic bilateral low back pain with sciatica, sciatica laterality unspecified Procedures CONSULT TO ORTHOPAEDIC SURGERY NEW PATIENT VISIT LEVEL 5 Belgica Herrera [facility] [place] [address] Status Reason Specialty Diagnoses / Procedures Referred By Contact Referred To Contact Authorized PCP Requested Referral Ent - Otolaryngology Diagnoses Dizziness Tinnitus aurium, bilateral Procedures CONSULT TO ENT NEW PATIENT VISIT LEVEL 5 Belgica Herrera [facility] [place] [address] Status Reason Specialty Diagnoses / Procedures Referred By Contact Referred To Contact Authorized PCP Requested Referral Ophthalmology Diagnoses Diabetes mellitus due to underlying condition, uncontrolled, with hyperglycemia (HCC) Dizziness Procedures CONSULT TO OPHTHALMOLOGY NEW PATIENT VISIT LEVEL 5 Belgica Herrera [facility] [place] [address] Status Reason Specialty Diagnoses / Procedures Referred By Contact Referred To Contact Authorized PCP Requested Referral Diagnoses Diabetes mellitus due to underlying condition, uncontrolled, with hyperglycemia (HCC) Obesity, Class II, BMI 35-39.9 Procedures CONSULT TO DIABETES EDUCATION NEW PATIENT VISIT LEVEL 5 Belgica Herrera [facility] [place] [address] Status Reason Specialty Diagnoses / Procedures Referred By Contact Referred To Contact Authorized PCP Requested Referral Orthopedics Diagnoses Left shoulder pain, unspecified chronicity Procedures CONSULT TO ORTHOPAEDIC SURGERY NEW PATIENT VISIT LEVEL 5 Belgica Herrera [facility] [place] [address] Status Reason Specialty Diagnoses / Procedures Referred By Contact Referred To Contact Ref Not Required PCP Requested Referral Diagnoses Left shoulder pain, unspecified chronicity Procedures CONSULT TO PHYSICAL THERAPY (AG) Belgica Herrera [facility] [place] [address] Status Reason Specialty Diagnoses / Procedures Referred By Contact Referred To Contact Authorized PCP Requested Referral Endocrinology Diagnoses Uncontrolled type 2 diabetes mellitus with hyperglycemia (HCC) Procedures CONSULT TO ENDOCRINOLOGY NEW PATIENT VISIT LEVEL 5 Belgica Herrera [facility] [place] [address] Status Reason Specialty Diagnoses / Procedures Referred By Contact Referred To Contact Authorized PCP Requested Referral Ophthalmology Diagnoses Screening for diabetic retinopathy Uncontrolled type 2 diabetes mellitus with hyperglycemia (HCC) Procedures CONSULT TO OPHTHALMOLOGY NEW PATIENT VISIT LEVEL 5 Belgica Herrera [facility] [place] [address] Status Reason Specialty Diagnoses / Procedures Referred By Contact Referred To Contact Ref Not Required PCP Requested Referral Neurology Diagnoses Chronic nausea Chronic vertigo Procedures CONSULT TO NEUROLOGY Belgica Herrera [facility] [place] [address] Status Reason Specialty Diagnoses / Procedures Referred By Contact Referred To Contact Authorized PCP Requested Referral Gastroenterology Diagnoses Drooling Procedures CONSULT TO GASTROENTEROLOGY NEW PATIENT VISIT LEVEL 5 Belgica Herrera [facility] [place] [address] Status Reason Specialty Diagnoses / Procedures Referred By Contact Referred To Contact Authorized PCP Requested Referral Rheumatology Diagnoses Myalgia Procedures CONSULT TO RHEUM/IMMUN DISEASE NEW PATIENT VISIT LEVEL 5 Belgica Herrera [facility] [place] [address] Specialty Diagnoses / Procedures Referred By Contac t Referred To Contact MR IMAGING Diagnoses Malignant neoplasm of rectosigmoid junction (HCC) Procedures MRI PELVIS WO/W IVCON MRI PELVIS W/WO CONTRAST Artem Ahmadi MD 1 [facility] [address] [place] [address] Mr Imaging Referral ID Status Reason Start Date Expiration Date V isits Requested Visits Authorized [id number] Closed Auto-Generate d Referral 06/10/2021 01/10/2022 1 1 Specialty Diagnoses / Procedures Referred By Contac t Referred To Contact Ophthalmology Diagnoses Screening for diabetic retinopathy Procedures CONSULT TO OPHTHALMOLOGY OFFICE/OUTPATIENT [facility] 60-74 MINUTES Belgica Vega DO [address] [place] [address] Referral ID Status Reason Start Date Expiration Date Visits Requested Visits Authorized [id number] Authorized PCP Requested Referral 09/20/2021 09/20/2022 1 1 Specialty Diagnoses / Procedures Referred By Contac t Referred To Contact Nephrology Diagnoses Elevated serum creatinine Microalbuminuria Procedures CONSULT TO NEPHROLOGY OFFICE/OUTPATIENT [facility] 60-74 MINUTES Belgica Vega DO [address] [place] [address] Referral ID Status Reason Start Date Expiration Date Visits Requested Visits Authorized [id number] Authorized PCP Requested Referral 10/05/2021 10/05/2022 1 1 Specialty Diagnoses / Procedures Referred By Contac t Referred To Contact Psychology Diagnoses Anxiety and depression Difficulty controlling anger Oppositional defiant disorder with chronic irritability and anger Procedures CONSULT TO PSYCHOLOGY OFFICE/OUTPATIENT [facility] 60-74 MINUTES Belgica Vega DO [address] [place] [address] Referral ID Status Reason Start Date Expiration Date Visits Requested Visits Authorized [id number] Pending Review PCP Requested Referral 01/03/2022 01/03/2023 1 1 Specialty Diagnoses / Procedures Referred By Contac t Referred To Contact [facility] [place] Diagnoses Chronic bilateral low back pain with left-sided sciatica Procedures [facility]/OUTPATIENT [facility] 60-74 MINUTES Billy Martinez MD [address] [place] [address] Referral ID Status Reason Start Date Expiration Date Visits Requested Visits Authorized [id number] Authorized PCP Requested Referral 2 01/17/2023 1 1 Specialty Diagnoses / Procedures Referred By Contac t Referred To Contact Endocrinology Diagnoses Type 2 diabetes mellitus with stage 3a chronic kidney disease, with long-term current use of insulin (HCC) Obesity, Class II, BMI 35-39.9 Procedures CONSULT TO ENDOCRINOLOGY OFFICE/OUTPATIENT [facility] MDM 60-74 MINUTES Billy Martinez MD [address] [place] [address] Referral ID Status Reason Start Date Expiration Date Visits Requested Visits Authorized [id number] Authorized PCP Requested Referral 2 01/17/2023 1 1 Specialty Diagnoses / Procedures Referred By Contac t Referred To Contact Endocrinology Diagnoses Diabetes mellitus due to underlying condition, uncontrolled, with hyperglycemia (HCC) Procedures CONSULT TO ENDOCRINOLOGY OFFICE/OUTPATIENT [facility] MDM 60-74 MINUTES Belgica Vega DO [address] [facility] [address] [place] [address] Referral ID Status Reason Start Date Expiration Date Visits Requested Visits Authorized [id number] Authorized PCP Requested Referral 2 03/01/2023 1 1 Specialty Diagnoses / Procedures Referred By Contac t Referred To Contact Oncology Diagnoses Malignant neoplasm of rectum (HCC) Procedures CONSULT TO ONCOLOGY OFFICE/OUTPATIENT [facility]DM 60-74 MINUTES Belgica Vega DO [address] [place] [address] Referral ID Status Reason Start Date Expiration Date Visits Requested Visits Authorized [id number] Pending Review PCP Requested Referral 05/18/2022 05/18/2023 1 1 Specialty Diagnoses / Procedures Referred By Contac t Referred To Contact CT IMAGING Diagnoses Pulmonary nodules Procedures CT CHEST WO IVCON DIAGNOSTIC COMPUTED TOMOGRAPHY THORAX W/O Rory Shepherd MD [address] [place] [address] Ct Imaging Referral ID Status Reason Start Date Expiration Date Visits Requested Visits Authorized [id number] Pending Review Auto-Generat ed Referral 06/05/2022 07/05/2023 1 1 Specialty Diagnoses / Procedures Referred By Contac t Referred To Contact Orthopedics Diagnoses Hip pain Procedures CONSULT TO ORTHOPAEDICS OFFICE/OUTPATIENT [facility] MDM 60-74 MINUTES Rory Mendoza MD [address] [place] [address] Referral ID Status Reason Start Date Expiration Date Visits Requested Visits Authorized [id number] Pending Review PCP Requested Referral 06/01/2022 06/01/2023 1 1 Specialty Diagnoses / Procedures Referred By Contac t Referred To Contact Podiatry Diagnoses Diabetic peripheral neuropathy associated with type 2 diabetes mellitus (HCC) Onychomycosis Procedures CONSULT TO PODIATRY OFFICE/OUTPATIENT [facility] MDM 60-74 MINUTES Belgica Vega, [address] [place] [address] Referral ID Status Reason Start Date Expiration Date Visits Requested Visits Authorized [id number] Pending Review PCP Requested Referral 08/12/2022 08/12/2023 1 1 Specialty Diagnoses / Procedures Referred By Contac t Referred To Contact MR IMAGING Diagnoses Pain in hip Chronic left hip pain Procedures MRI ARTHROGRAM HIP LEFT MRI ANY JT LOWER EXTREM W/CONTRAST MATERIAL Binh Lake DO [address] [place] [address] Mr Imaging Referral ID Status Reason Start Date Expiration Date V isits Requested Visits Authorized [id number] Closed Auto-Generate d Referral 07/01/2022 07/31/2023 1 [...] DO [address] [place] [address] Mr Imaging Referral ID Status Reason Start Date Expiration Date Visits Requested Visits Authorized [id number] Authorized Auto-Generat ed Referral 09/02/2022 10/02/2023 1 [...] present Procedures CONSULT TO PAIN MGT OFFICE/OUTPATIENT [facility] 60-74 MINUTES Binh Lake, DO [address] [facility] [address] [place] [address] Luis Carlos Lee MD [address] [place] [address] Referral ID Status Reason Start Date Expiration Date Visits Requested Visits Authorized [id number] Pending Review PCP Requested Referral 09/02/2022 09/02/2023 1 1 Specialty Diagnoses / Procedures Referred By Contac t Referred To Contact Orthopedics Diagnoses Lumbar back pain with radiculopathy affecting lower extremity Chronic bilateral low back pain with left-sided sciatica Procedures CONSULT TO ORTHOPAEDICS OFFICE/OUTPATIENT [facility] 60-74 MINUTES Binh Lake, DO [address] [facility] [address] [place] [address] Emerson Glaser MD [address] [facility] [address] [place] [address] Referral ID Status Reason Start Date Expiration Date Visits Requested Visits Authorized [id number] Pending Review PCP Requested Referral 09/23/2022 12/22/2022 1 1 Specialty Diagnoses / Procedures Referred By Contac t Referred To Contact Dermatology Diagnoses Hidradenitis suppurativa Cutaneous abscess of abdominal wall Procedures CONSULT TO DERMATOLOGY OFFICE/OUTPATIENT [facility] 60-74 MINUTES Belgica Vega DO [address] [address] Referral ID Status Reason Start Date Expiration Date Visits Requested Visits Authorized [id number] Pending Review PCP Requested Referral 09/28/2022 09/28/2023 1 1 Specialty Diagnoses / Procedures Referred By Contac t Referred To Contact Nephrology Diagnoses Stage 3 chronic kidney disease, unspecified whether stage 3a or 3b CKD (HCC) Hyponatremia Procedures CONSULT TO NEPHROLOGY OFFICE/OUTPATIENT [facility] 60-74 MINUTES Belgica Vega DO [address] [place] [address] Referral ID Status Reason Start Date Expiration Date Visits Requested Visits Authorized [id number] Pending Review PCP Requested Referral 09/28/2022 09/28/2023 1 1 Specialty Diagnoses / Procedures Referred By Contac t Referred To Contact Cardiology Diagnoses Myocardial infarction due to demand ischemia ([facility]) Procedures CONSULT TO CARDIOLOGY OFFICE/OUTPATIENT [facility] 60-74 MINUTES Belgica Vega DO [address] [place] [address] Referral ID Status Reason Start Date Expiration Date Visits Requested Visits Authorized [id number] Pending Review PCP Requested Referral 09/28/2022 12/27/2022 1 1 Specialty Diagnoses / Procedures Referred By Contac t Referred To Contact Neurology Diagnoses Chronic bilateral low back pain with left-sided sciatica Spinal stenosis of lumbar region with neurogenic claudication Chronic left hip pain Lumbar radiculopathy Procedures CONSULT TO NEUROLOGY OFFICE/OUTPATIENT [facility] 60-74 MINUTES Belgica Vega, [address] [place] [address] Referral ID Status Reason Start Date Expiration Date Visits Requested Visits Authorized [id number] Pending Review PCP Requested Referral 11/04/2022 11/04/2023 1 1 Specialty Diagnoses / Procedures Referred By Contac t Referred To Contact Dermatology Diagnoses Hidradenitis suppurativa Procedures CONSULT TO DERMATOLOGY OFFICE/OUTPATIENT [facility] 60-74 MINUTES Belgica Vega DO [address] [place] [address] Referral ID Status Reason Start Date Expiration Date Visits Requested Visits Authorized [id number] Pending Review PCP Requested Referral 11/04/2022 11/04/2023 1 1 Specialty Diagnoses / Procedures Referred By Contac t Referred To Contact Nutrition Diagnoses Diabetes mellitus due to underlying condition, uncontrolled, with hyperglycemia (HCC) H/O medication noncompliance Procedures CONSULT TO NUTRITION THERAPY MEDICAL NUTRITION ASSMT&IVNTJ INDIV EACH 15 MD MEDICAL NUTRITION ASSMT&IVNTJ INDIV EACH 15 MD MEDICAL NUTRITION ASSMT&IVNTJ INDIV EACH 15 MD MEDICAL NUTRITION ASSMT&IVNTJ INDIV EACH 15 MD Belgica Vega DO [address] [facility] [address] [place] [address] Referral ID Status Reason Start Date Expiration Date Visits Requested Visits Authorized [id number] Pending Review PCP Requested Referral 11/04/2022 11/04/2023 1 1 Specialty Diagnoses / Procedures Referred By Contac t Referred To Contact Endocrinology Diagnoses Diabetes mellitus due to underlying condition, uncontrolled, with hyperglycemia (HCC) H/O medication noncompliance Procedures CONSULT TO ENDOCRINOLOGY OFFICE/OUTPATIENT [facility] 60-74 MINUTES Belgica Vega DO [address] [address] Referral ID Status Reason Start Date Expiration Date Visits Requested Visits Authorized [id number] Pending Review PCP Requested Referral 11/04/2022 11/04/2023 1 1 Specialty Diagnoses / Procedures Referred By Contac t Referred To Contact Pain Management Diagnoses Chronic pain syndrome Cancer associated pain Chronic bilateral low back pain with left-sided sciatica Spinal stenosis of lumbar region with neurogenic claudication Lumbar radiculopathy Procedures CONSULT TO PAIN MGT Belgica Vega DO [address] [address] Referral ID Status Reason Start Date Expiration Date Visits Requested Visits Authorized [id number] Ref Not Required PCP Requested Referral 12/23/2022 12/23/2023 1 1 History of Present Illness * Belgica Herrera - 02/14/2020 4:48 PM EST Belgica Herrera DO [address] [place] [address] Visit Date: February 14, 2020 Mr.Jim Najma Ashton Date of : 1960 MRN/E #: [id number] History of Present Illness José Manuel Ashton is a 59 year old male. Patient presents to the clinic today for new patient visit HPI Patient is new to me. Patient is here for physical exam. Pt is from [place]. Patient desires handicap placard on the basis [...] HTN, cant recall name of med in thpast. Last took meds 2-3 yrs ago Pt [...] nearest ED. documented in this encounter* Randall Salazar (Rt), Tech - 02/17/2020 1:15 PM EST Radiology Service [...] 2020 1:46 PM documented in this encounter* Belgica Herrera - 02/20/2020 3:30 PM EST Belgica Herrera DO [address] [place] [address] Visit Date: February 20, 2020 Mr.Jim Najma Ashton Date of : 1960 MRN/E #: [id number] History of Present Illness José Manuel Ashton [...] want to check BS. Pt states [facility] ran out of acto plus met. Was [...] visit.Patient was also referred to orthopedics. Handicap veronikaard prescription was written. 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 Has hx of of bad [...] 02/17/2020 1.62 1.00 - 4.00 k/uL Final [place]% 02/17/2020 9.2 % Final Abs [place] 02/17/2020 0.73 <0.87 k/uL Final Eosin% 02/17/2020 [...] 322* 74 - 99 mg/dL Final The [place] Diabetes Association (ADA) provides guidance for cutoff [...] Standards of Medical Care in Diabetes 2016, [place] Diabetes Association. Diabetes Care. 2016.39(Suppl 1). BUN [...] Desk Reference: National Heart, Lung, and Blood [place]. National Institutes of Health. 2001: NIH Publication No. 01-3305. 2. An International Atherosclerosis Society position paper: global recommendations for the management of dyslipidemia: executive summary, Atherosclerosis. 2014: 232(2):410-413. PSA 02/17/2020 0.75 0.00 - 3.90 ng/mL Final Total PSA test methodology used is the Direct Chemiluminometric technology. TSH 02/17/2020 1.160 0.270 - 4.200 uU/mL Final Hemoglobin A1C 02/17/2020 13.2* 4.3 - 5.6 % Final [place] Diabetes Association guidelines indicate that patients with HgbA1c in the range 5.7-6.4% are at increased risk for development of diabetes, and intervention by lifestyle modification may be beneficial. HgbA1c greater or equal to 6.5% is considered diagnostic of diabetes. Estimated Average Glucose 02/17/2020 332 mg/dL Final eAG: (Estimated average glucose) is a calculated value from HgbA1c and is wholesale representative of the average blood glucose level [...] 12 Combo (Ag/Ab) 02/17/2020 Nonreactive Nonreactive Final [place] Rev. Code 3701.243(E): This information has been [...] slowly - CTA HEAD WO/W IVCON Belgica Herrera DO If symptoms persist, worsen, or no improvement, patient is to call 911 and/or go to the nearest ED. documented in this encounter* Belgica Herrera - 03/23/2020 3:52 PM EST Belgica Herrera DO [address] [place] [address] Visit Date: March 23, 2020 Mr.Jim Najma Ashton Date of : 1960 MRN/E #: [id number] History of Present Illness José Manuel Ashton [...] Tolerating med well. Having trouble getting acto plus met, has letter about it. Patient does have his history of diabetes mellitus. Hemoglobin A1c was 13.21-month ago. Patient watches his diet. Patient had indicated during last office visit that [facility] ran out of [employer] met. Was told that they would call once theygot it again but they never called him. Patient had recalled A1c being 8-9 one on [facility] met[facility] med. States [facility] didn't [...] 02/17/2020 1.62 1.00 - 4.00 k/uL Final [place]% 02/17/2020 9.2 % Final Abs [place] 02/17/2020 0.73 <0.87 k/uL Final Eosin% 02/17/2020 [...] 322* 74 - 99 mg/dL Final The [place] Diabetes Association (ADA) provides guidance for cutoff [...] Standards of Medical Care in Diabetes 2016, [place] Diabetes Association. Diabetes Care. 2016.39(Suppl 1). BUN [...] Desk Reference: National Heart, Lung, and Blood [place]. National Institutes of Health. 2001: NIH Publication No. 01-3305. 2. An International Atherosclerosis Society position paper: global recommendations for the management of dyslipidemia: executive summary, Atherosclerosis. 2014: 232(2):410-413. PSA 02/17/2020 0.75 0.00 - 3.90 ng/mL Final Total PSA test methodology used is the Direct Chemiluminometric technology. TSH 02/17/2020 1.160 0.270 - 4.200 uU/mL Final Hemoglobin A1C 02/17/2020 13.2* 4.3 - 5.6 % Final [place] Diabetes Association guidelines indicate that patients with HgbA1c in the range 5.7-6.4% are at increased risk for development of diabetes, and intervention by lifestyle modification may be beneficial. HgbA1c greater or equal to 6.5% is considered diagnostic of diabetes. Estimated Average Glucose 02/17/2020 332 mg/dL Final eAG: (Estimated average glucose) is a calculated value from HgbA1c and is wholesale representative of the average blood glucose level [...] 12 Combo (Ag/Ab) 02/17/2020 Nonreactive Nonreactive Final [place] Rev. Code 3701.243(E): This information has been [...] help prevent neurovascular complications of diabetes Belgica Herrera DO Return in about 1 month (around 04/23/2020) for Diabetes, Hypertension. If symptoms persist, worsen, or no improvement, patient is to call 911 and/or go to the nearest ED. documented in this encounter* Belgica Herrera - 04/27/2020 3:51 PM EST Belgica Herrera DO [address] [place] [address] Visit Date: April 27, 2020 Mr.Jim Najma Ashton Date of : 1960 MRN/E #: [id number] History of Present Illness José Manuel Ashton [...] gotit caught on a glass rack during 2016 at work. PAST MEDICAL HISTORY Diagnosis Date [...] 02/17/2020 1.62 1.00 - 4.00 k/uL Final [place]% 02/17/2020 9.2 % Final Abs [place] 02/17/2020 0.73 <0.87 k/uL Final Eosin% 02/17/2020 [...] 322* 74 - 99 mg/dL Final The [place] Diabetes Association (ADA) provides guidance for cutoff [...] Standards of Medical Care in Diabetes 2016, [place] Diabetes Association. Diabetes Care. 2016.39(Suppl 1). BUN [...] Desk Reference: National Heart, Lung, and Blood [place]. National Institutes of Health. 2001: NIH Publication No. 01-3305. 2. An International Atherosclerosis Society position paper: global recommendations for the management of dyslipidemia: executive summary, Atherosclerosis. 2014: 232(2):410-413. PSA 02/17/2020 0.75 0.00 - 3.90 ng/mL Final Total PSA test methodology used is the Direct Chemiluminometric technology. TSH 02/17/2020 1.160 0.270 - 4.200 uU/mL Final Hemoglobin A1C 02/17/2020 13.2* 4.3 - 5.6 % Final [place] Diabetes Association guidelines indicate that patients with HgbA1c in the range 5.7-6.4% are at increased risk for development of diabetes, and intervention by lifestyle modification may be beneficial. HgbA1c greater or equal to 6.5% is considered diagnostic of diabetes. Estimated Average Glucose 02/17/2020 332 mg/dL Final eAG: (Estimated average glucose) is a calculated value from HgbA1c and is wholesale representative of the average blood glucose level [...] 12 Combo (Ag/Ab) 02/17/2020 Nonreactive Nonreactive Final [place] Rev. Code 3701.243(E): This information has been [...] heat with ice as needed Belgica Herrera, DO Return in about 1 month (around 05/28/2020) [...] of Care: created on 05/05/20 through 06/16/20 [place] in home exercise program. Patient will follow [...] Planned: 12(TBD) Planned Treatment Interventions: Therapeutic exercise (36642);Neuromuscular re- education (97648);Manual therapy (65278);Therapeutic activities (62189);Self- long-term management (79698);Gait Training (39978);Body Mechanics Training;E- Stim Unattended (30681);Ultrasound (49888) PLAN FOR NEXT VISIT: Hold outpatient PT at this time, patient to follow up with physician [facility] PT. Patient demonstrates good understanding of [...] PT Treatment Interventions: Therapeutic Exercise Evaluation Billing: [place]: Evaluation - Moderate Complexity (33422) Therapeutic Exercise (27176): 1:1 time: 10 minutes (1 unit: 8-22 mins) Total time / Length of visit: 60 minutes Carla Tripathi PT documented in this encounter* Jayesh BarajasRtAnne Marie Reynaga - 05/14/2020 2:00 PM EST Radiology Service [...] 2:56 PM documented in this encounter* Juancho Benedict (Operations/Dispatch-S) - 05/28/2020 12:52 PM EST [facility] Behavioral Medicine RUDY [address] [facility] 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 The patient stated [...] Personal History: The patient was born in [place], [place]. He was the youngest of 17 children born to his mother and father. Most of his siblings were in the home when he was born. He feels that his childhood was awesome. His mother worked as a homemaker. His father was a barratte operator. He recalled both of his parents working all day long. Many of his siblings have . The patient went to high school in [place], [place]. He was not a good student. He never graduated. 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 One of his brothersmoved to [place] and he moved with him in 1983 at the age of 23. 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 When his brother got he moved into a [facility] where everybody had their own room. His brother still resides in [place] but he felt that there were other family members that he would like to be close to and moved back to [place] last December. Support Systems: At the present [...] Thought: Normal. Abstract Thinking: Normal. Thought Content: [place]. Cognition - Immediate Recall : Intact Remote [...] 4:07 PM EST Belgica Herrera DO [address] [place] [address] Visit Date: May 28, 2020 Mr.Jim Najma Ashton Date of : 1960 MRN/E #: [id number] History of Present Illness José Manuel Ashton [...] Patient previously had fallen down basement steps lastmonth. Patient has history of shoulder injury from [...] Ketones, Urine 05/14/2020 Trace* Negative Final Specific [place], Ur 05/14/2020 1.042* 1.005 - 1.030 Final [...] 05/14/2020 10.5* 4.3 - 5.6 % Final [place] Diabetes Association guidelines indicate that patients with HgbA1c in the range 5.7-6.4% are at increased risk for development of diabetes, and intervention by lifestyle modification may be beneficial. HgbA1c greater or equal to 6.5% is considered diagnostic of diabetes. Estimated Average Glucose 05/14/2020 255 mg/dL Final eAG: (Estimated average glucose) is a calculated value from HgbA1c and is wholesale representative of the average blood glucose level [...] Desk Reference: National Heart, Lung, and Blood [place]. National Institutes of Health. 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 Advance Directive(s) 04/13/2021 1:40 AM Advance Directive(s) 04/12/2021 2:50 PM Advance Directive(s) 02/19/2021 5:11 PM Advance Directive(s) 01/08/2021 6:55 PM Advance Directive(s) 11/24/2020 6:01 AM Advance Directive(s) 09/21/2020 10:29 AM Advance Directive(s) 07/24/2020 7:09 AM Documents on File Type Date Recorded 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 Advance Directive(s) 09/02/2021 8:46 PM Advance Directive(s) 04/13/2021 1:40 AM Advance Directive(s) 04/12/2021 2:50 PM Advance Directive(s) 02/19/2021 5:11 PM Advance Directive(s) 01/08/2021 6:55 PM Advance Directive(s) 11/24/2020 6:01 AM Advance Directive(s) 09/21/2020 10:29 AM Advance Directive(s) 07/24/2020 7:09 AM Documents on File Type Date Recorded 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 Advance Directive(s) 09/06/2021 9:37 PM Advance Directive(s) 09/02/2021 8:46 PM Advance Directive(s) 04/13/2021 1:40 AM Advance Directive(s) 04/12/2021 2:50 PM Advance Directive(s) 02/19/2021 5:11 PM Advance Directive(s) 01/08/2021 6:55 PM Advance Directive(s) 11/24/2020 6:01 AM Advance Directive(s) 09/21/2020 10:29 AM Advance Directive(s) 07/24/2020 7:09 AM Documents on File Type Date Recorded 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 In the event of a Fluress shortage, administer [place]-Fluor 1 drop into both eyes as directed [...] NaCl (PF) 0.9% 10 mL injection (DEFINITY) INTRAVENOUS, DIRECTED NEEDED, 1 dose, Starting on [...] or prosecute any alcohol or drug abuse patient.[facility] the event this information is protected by the Federal Confidentiality of Alcohol and Drug Abuse Patient Records regulations: The Federal rules restrict any use of the information to criminally investigate or prosecute any alcohol or drug abuse patient.[facility] Campus[facility] the event this information is protected by the Federal Confidentiality of Alcohol and Drug Abuse Patient Records regulations: The Federal rules restrict any use of the information to criminally investigate or prosecute any alcohol or drug abuse patient.[facility] Campus[facility] the event this information is protected by the Federal Confidentiality of Alcohol and Drug Abuse Patient Records regulations: The Federal rules restrict any use of the information to criminally investigate or prosecute any alcohol or drug abuse patient.[facility] CampusIn the event this information is protected by the Federal Confidentiality of Alcohol and Drug Abuse Patient Records regulations: The Federal rules restrict any use of the information to criminally investigate or prosecute any alcohol or drug abuse patient.[facility] CampusIn the event this information is protected by the Federal Confidentiality of Alcohol and Drug Abuse Patient Records regulations: The Federal rules restrict any use of the information to criminally investigate or prosecute any alcohol or drug abuse patient.[facility] the event this information is protected by the Federal Confidentiality of Alcohol and Drug Abuse Patient Records regulations: The Federal rules restrict any use of the information to criminally investigate or prosecute any alcohol or drug abuse patient.[facility]In the event this information is protected by the Federal Confidentiality of Alcohol and Drug Abuse Patient Records regulations: The Federal rules restrict any use of the information to criminally investigate or prosecute any alcohol or drug abuse patient.[facility]In the event this information is protected by the Federal Confidentiality of Alcohol and Drug Abuse Patient Records regulations: The Federal rules restrict any use of the information to criminally investigate or prosecute any alcohol or drug abuse patient.[facility]In the event this information is protected by the Federal Confidentiality of Alcohol and Drug Abuse Patient Records regulations: The Federal rules restrict any use of the information to criminally investigate or prosecute any alcohol or drug abuse patient.[facility]In the event this information is protected by the Federal Confidentiality of Alcohol and Drug Abuse Patient Records regulations: The Federal rules restrict any use of the information to criminally investigate or prosecute any alcohol or drug abuse patient.[facility]In the event this information is protected by the Federal Confidentiality of Alcohol and Drug Abuse Patient Records regulations: The Federal rules restrict any use of the information to criminally investigate or prosecute any alcohol or drug abuse patient.[facility]In the event this information is protected by the Federal Confidentiality of Alcohol and Drug Abuse Patient Records regulations: The Federal rules restrict any use of the information to criminally investigate or prosecute any alcohol or drug abuse patient.[facility]In the event this information is protected by the Federal Confidentiality of Alcohol and Drug Abuse Patient Records regulations: The Federal rules restrict any use of the information to criminally investigate or prosecute any alcohol or drug abuse patient.[facility]In the event this information is protected by the Federal Confidentiality of Alcohol and Drug Abuse Patient Records regulations: The Federal rules restrict any use of the information to criminally investigate or prosecute any alcohol or drug abuse patient.[facility]In the event this information is protected by the Federal Confidentiality of Alcohol and Drug Abuse Patient Records regulations: The Federal rules restrict any use of the information to criminally investigate or prosecute any alcohol or drug abuse patient.[facility]In the event this information is protected by the Federal Confidentiality of Alcohol and Drug Abuse Patient Records regulations: The Federal rules restrict any use of the information to criminally investigate or prosecute any alcohol or drug abuse patient.[facility]In the event this information is protected by the Federal Confidentiality of Alcohol and Drug Abuse Patient Records regulations: The Federal rules restrict any use of the information to criminally investigate or prosecute any alcohol or drug abuse patient.[facility]In the event this information is protected by the Federal Confidentiality of Alcohol and Drug Abuse Patient Records regulations: The Federal rules restrict any use of the information to criminally investigate or prosecute any alcohol or drug abuse patient.[facility] CampusIn the event this information is protected by the Federal Confidentiality of Alcohol and Drug Abuse Patient Records regulations: The Federal rules restrict any use of the information to criminally investigate or prosecute any alcohol or drug abuse patient.[facility] CampusIn the event this information is protected by the Federal Confidentiality of Alcohol and Drug Abuse Patient Records regulations: The Federal rules restrict any use of the information to criminally investigate or prosecute any alcohol or drug abuse patient.[facility] CampusIn the event this information is protected by the Federal Confidentiality of Alcohol and Drug Abuse Patient Records regulations: The Federal rules restrict any use of the information to criminally investigate or prosecute any alcohol or drug abuse patient.[facility] CampusIn the event this information is protected by the Federal Confidentiality of Alcohol and Drug Abuse Patient Records regulations: The Federal rules restrict any use of the information to criminally investigate or prosecute any alcohol or drug abuse patient.[facility] CampusIn the event this information is protected by the Federal Confidentiality of Alcohol and Drug Abuse Patient Records regulations: The Federal rules restrict any use of the information to criminally investigate or prosecute any alcohol or drug abuse patient.[facility] CampusIn the event this information is protected by the Federal Confidentiality of Alcohol and Drug Abuse Patient Records regulations: The Federal rules restrict any use of the information to criminally investigate or prosecute any alcohol or drug abuse patient.[facility] CampusIn the event this information is protected by the Federal Confidentiality of Alcohol and Drug Abuse Patient Records regulations: The Federal rules restrict any use of the information to criminally investigate or prosecute any alcohol or drug abuse patient.[facility] CampusIn the event this information is protected by the Federal Confidentiality of Alcohol and Drug Abuse Patient Records regulations: The Federal rules restrict any use of the information to criminally investigate or prosecute any alcohol or drug abuse patient.[facility] CampusIn the event this information is protected by the Federal Confidentiality of Alcohol and Drug Abuse Patient Records regulations: The Federal rules restrict any use of the information to criminally investigate or prosecute any alcohol or drug abuse patient.[facility] CampusIn the event this information is protected by the Federal Confidentiality of Alcohol and Drug Abuse Patient Records regulations: The Federal rules restrict any use of the information to criminally investigate or prosecute any alcohol or drug abuse patient.[facility] CampusIn the event this information is protected by the Federal Confidentiality of Alcohol and Drug Abuse Patient Records regulations: The Federal rules restrict any use of the information to criminally investigate or prosecute any alcohol or drug abuse patient.[facility] CampusIn the event this information is protected by the Federal Confidentiality of Alcohol and Drug Abuse Patient Records regulations: The Federal rules restrict any use of the information to criminally investigate or prosecute any alcohol or drug abuse patient.[facility] CampusIn the event this information is protected by the Federal Confidentiality of Alcohol and Drug Abuse Patient Records regulations: The Federal rules restrict any use of the information to criminally investigate or prosecute any alcohol or drug abuse patient.[facility] CampusIn the event this information is protected by the Federal Confidentiality of Alcohol and Drug Abuse Patient Records regulations: The Federal rules restrict any use of the information to criminally investigate or prosecute any alcohol or drug abuse patient.[facility] CampusIn the event this information is protected by the Federal Confidentiality of Alcohol and Drug Abuse Patient Records regulations: The Federal rules restrict any use of the information to criminally investigate or prosecute any alcohol or drug abuse patient.[facility] CampusIn the event this information is protected by the Federal Confidentiality of Alcohol and Drug Abuse Patient Records regulations: The Federal rules restrict any use of the information to criminally investigate or prosecute any alcohol or drug abuse patient.[facility] CampusIn the event this information is protected by the Federal Confidentiality of Alcohol and Drug Abuse Patient Records regulations: The Federal rules restrict any use of the information to criminally investigate or prosecute any alcohol or drug abuse patient.[facility] CampusIn the event this information is protected by the Federal Confidentiality of Alcohol and Drug Abuse Patient Records regulations: The Federal rules restrict any use of the information to criminally investigate or prosecute any alcohol or drug abuse patient.[facility]In the event this information is protected by the Federal Confidentiality of Alcohol and Drug Abuse Patient Records regulations: The Federal rules restrict any use of the information to criminally investigate or prosecute any alcohol or drug abuse patient.[facility] CampusIn the event this information is protected by the Federal Confidentiality of Alcohol and Drug Abuse Patient Records regulations: The Federal rules restrict any use of the information to criminally investigate or prosecute any alcohol or drug abuse patient.[facility] CampusIn the event this information is protected by the Federal Confidentiality of Alcohol and Drug Abuse Patient Records regulations: The Federal rules restrict any use of the information to criminally investigate or prosecute any alcohol or drug abuse patient.[facility]In the event this information is protected by the Federal Confidentiality of Alcohol and Drug Abuse Patient Records regulations: The Federal rules restrict any use of the information to criminally investigate or prosecute any alcohol or drug abuse patient.[facility] CampusIn the event this information is protected by the Federal Confidentiality of Alcohol and Drug Abuse Patient Records regulations: The Federal rules restrict any use of the information to criminally investigate or prosecute any alcohol or drug abuse patient.[facility] CampusIn the event this information is protected by the Federal Confidentiality of Alcohol and Drug Abuse Patient Records regulations: The Federal rules restrict any use of the information to criminally investigate or prosecute any alcohol or drug abuse patient.[facility] CampusIn the event this information is protected by the Federal Confidentiality of Alcohol and Drug Abuse Patient Records regulations: The Federal rules restrict any use of the information to criminally investigate or prosecute any alcohol or drug abuse patient.[facility] CampusIn the event this information is protected by the Federal Confidentiality of Alcohol and Drug Abuse Patient Records regulations: The Federal rules restrict any use of the information to criminally investigate or prosecute any alcohol or drug abuse patient.[facility] CampusIn the event this information is protected by the Federal Confidentiality of Alcohol and Drug Abuse Patient Records regulations: The Federal rules restrict any use of the information to criminally investigate or prosecute any alcohol or drug abuse patient.[facility] CampusIn the event this information is protected by the Federal Confidentiality of Alcohol and Drug Abuse Patient Records regulations: The Federal rules restrict any use of the information to criminally investigate or prosecute any alcohol or drug abuse patient.[facility] CampusIn the event this information is protected by the Federal Confidentiality of Alcohol and Drug Abuse Patient Records regulations: The Federal rules restrict any use of the information to criminally investigate or prosecute any alcohol or drug abuse patient.[facility] CampusIn the event this information is protected by the Federal Confidentiality of Alcohol and Drug Abuse Patient Records regulations: The Federal rules restrict any use of the information to criminally investigate or prosecute any alcohol or drug abuse patient.[facility] CampusIn the event this information is protected by the Federal Confidentiality of Alcohol and Drug Abuse Patient Records regulations: The Federal rules restrict any use of the information to criminally investigate or prosecute any alcohol or drug abuse patient.[facility] CampusIn the event this information is protected by the Federal Confidentiality of Alcohol and Drug Abuse Patient Records regulations: The Federal rules restrict any use of the information to criminally investigate or prosecute any alcohol or drug abuse patient.[facility] CampusIn the event this information is protected by the Federal Confidentiality of Alcohol and Drug Abuse Patient Records regulations: The Federal rules restrict any use of the information to criminally investigate or prosecute any alcohol or drug abuse patient.[facility] CampusIn the event this information is protected by the Federal Confidentiality of Alcohol and Drug Abuse Patient Records regulations: The Federal rules restrict any use of the information to criminally investigate or prosecute any alcohol or drug abuse patient.[facility] CampusIn the event this information is protected by the Federal Confidentiality of Alcohol and Drug Abuse Patient Records regulations: The Federal rules restrict any use of the information to criminally investigate or prosecute any alcohol or drug abuse patient.[facility]In the event this information is protected by the Federal Confidentiality of Alcohol and Drug Abuse Patient Records regulations: The Federal rules restrict any use of the information to criminally investigate or prosecute any alcohol or drug abuse patient.[facility] CampusIn the event this information is protected by the Federal Confidentiality of Alcohol and Drug Abuse Patient Records regulations: The Federal rules restrict any use of the information to criminally investigate or prosecute any alcohol or drug abuse patient.[facility]In the event this information is protected by the Federal Confidentiality of Alcohol and Drug Abuse Patient Records regulations: The Federal rules restrict any use of the information to criminally investigate or prosecute any alcohol or drug abuse patient.[facility]In the event this information is protected by the Federal Confidentiality of Alcohol and Drug Abuse Patient Records regulations: The Federal rules restrict any use of the information to criminally investigate or prosecute any alcohol or drug abuse patient.[facility]In the event this information is protected by the Federal Confidentiality of Alcohol and Drug Abuse Patient Records regulations: The Federal rules restrict any use of the information to criminally investigate or prosecute any alcohol or drug abuse patient.[facility]In the event this information is protected by the Federal Confidentiality of Alcohol and Drug Abuse Patient Records regulations: The Federal rules restrict any use of the information to criminally investigate or prosecute any alcohol or drug abuse patient.[facility]In the event this information is protected by the Federal Confidentiality of Alcohol and Drug Abuse Patient Records regulations: The Federal rules restrict any use of the information to criminally investigate or prosecute any alcohol or drug abuse patient.[facility]In the event this information is protected by the Federal Confidentiality of Alcohol and Drug Abuse Patient Records regulations: The Federal rules restrict any use of the information to criminally investigate or prosecute any alcohol or drug abuse patient.[facility]In the event this information is protected by the Federal Confidentiality of Alcohol and Drug Abuse Patient Records regulations: The Federal rules restrict any use of the information to criminally investigate or prosecute any alcohol or drug abuse patient.[facility] CampusIn the event this information is protected by the Federal Confidentiality of Alcohol and Drug Abuse Patient Records regulations: The Federal rules restrict any use of the information to criminally investigate or prosecute any alcohol or drug abuse patient.[facility]In the event this information is protected by the Federal Confidentiality of Alcohol and Drug Abuse Patient Records regulations: The Federal rules restrict any use of the information to criminally investigate or prosecute any alcohol or drug abuse patient.[facility] CampusIn the event this information is protected by the Federal Confidentiality of Alcohol and Drug Abuse Patient Records regulations: The Federal rules restrict any use of the information to criminally investigate or prosecute any alcohol or drug abuse patient.[facility] CampusIn the event this information is protected by the Federal Confidentiality of Alcohol and Drug Abuse Patient Records regulations: The Federal rules restrict any use of the information to criminally investigate or prosecute any alcohol or drug abuse patient.[facility]In the event this information is protected by the Federal Confidentiality of Alcohol and Drug Abuse Patient Records regulations: The Federal rules restrict any use of the information to criminally investigate or prosecute any alcohol or drug abuse patient.[facility] CampusIn the event this information is protected by the Federal Confidentiality of Alcohol and Drug Abuse Patient Records regulations: The Federal rules restrict any use of the information to criminally investigate or prosecute any alcohol or drug abuse patient.[facility] CampusIn the event this information is protected by the Federal Confidentiality of Alcohol and Drug Abuse Patient Records regulations: The Federal rules restrict any use of the information to criminally investigate or prosecute any alcohol or drug abuse patient.[facility] CampusIn the event this information is protected by the Federal Confidentiality of Alcohol and Drug Abuse Patient Records regulations: The Federal rules restrict any use of the information to criminally investigate or prosecute any alcohol or drug abuse patient.[facility]In the event this information is protected by the Federal Confidentiality of Alcohol and Drug Abuse Patient Records regulations: The Federal rules restrict any use of the information to criminally investigate or prosecute any alcohol or drug abuse patient.[facility] CampusIn the event this information is protected by the Federal Confidentiality of Alcohol and Drug Abuse Patient Records regulations: The Federal rules restrict any use of the information to criminally investigate or prosecute any alcohol or drug abuse patient.[facility]In the event this information is protected by the Federal Confidentiality of Alcohol and Drug Abuse Patient Records regulations: The Federal rules restrict any use of the information to criminally investigate or prosecute any alcohol or drug abuse patient.[facility] CampusIn the event this information is protected by the Federal Confidentiality of Alcohol and Drug Abuse Patient Records regulations: The Federal rules restrict any use of the information to criminally investigate or prosecute any alcohol or drug abuse patient.[facility] CampusIn the event this information is protected by the Federal Confidentiality of Alcohol and Drug Abuse Patient Records regulations: The Federal rules restrict any use of the information to criminally investigate or prosecute any alcohol or drug abuse patient.[facility]In the event this information is protected by the Federal Confidentiality of Alcohol and Drug Abuse Patient Records regulations: The Federal rules restrict any use of the information to criminally investigate or prosecute any alcohol or drug abuse patient.[facility] CampusIn the event this information is protected by the Federal Confidentiality of Alcohol and Drug Abuse Patient Records regulations: The Federal rules restrict any use of the information to criminally investigate or prosecute any alcohol or drug abuse patient.[facility]In the event this information is protected by the Federal Confidentiality of Alcohol and Drug Abuse Patient Records regulations: The Federal rules restrict any use of the information to criminally investigate or prosecute any alcohol or drug abuse patient.[facility]In the event this information is protected by the Federal Confidentiality of Alcohol and Drug Abuse Patient Records regulations: The Federal rules restrict any use of the information to criminally investigate or prosecute any alcohol or drug abuse patient.[facility] CampusIn the event this information is protected by the Federal Confidentiality of Alcohol and Drug Abuse Patient Records regulations: The Federal rules restrict any use of the information to criminally investigate or prosecute any alcohol or drug abuse patient.[facility] CampusIn the event this information is protected by the Federal Confidentiality of Alcohol and Drug Abuse Patient Records regulations: The Federal rules restrict any use of the information to criminally investigate or prosecute any alcohol or drug abuse patient.[facility] CampusIn the event this information is protected by the Federal Confidentiality of Alcohol and Drug Abuse Patient Records regulations: The Federal rules restrict any use of the information to criminally investigate or prosecute any alcohol or drug abuse patient.[facility] CampusIn the event this information is protected by the Federal Confidentiality of Alcohol and Drug Abuse Patient Records regulations: The Federal rules restrict any use of the information to criminally investigate or prosecute any alcohol or drug abuse patient.[facility] CampusIn the event this information is protected by the Federal Confidentiality of Alcohol and Drug Abuse Patient Records regulations: The Federal rules restrict any use of the information to criminally investigate or prosecute any alcohol or drug abuse patient.[facility] [facility] the event this information is protected by the Federal Confidentiality of Alcohol and Drug Abuse Patient Records regulations: The Federal rules restrict any use of the information to criminally investigate or prosecute any alcohol or drug abuse patient.[facility] the event this information is protected by the Federal Confidentiality of Alcohol and Drug Abuse Patient Records regulations: The Federal rules restrict any use of the information to criminally investigate or prosecute any alcohol or drug abuse patient.[facility]In the event this information is protected by the Federal Confidentiality of Alcohol and Drug Abuse Patient Records regulations: The Federal rules restrict any use of the information to criminally investigate or prosecute any alcohol or drug abuse patient.[facility]In the event this information is protected by the Federal Confidentiality of Alcohol and Drug Abuse Patient Records regulations: The Federal rules restrict any use of the information to criminally investigate or prosecute any alcohol or drug abuse patient.[facility]In the event this information is protected by the Federal Confidentiality of Alcohol and Drug Abuse Patient Records regulations: The Federal rules restrict any use of the information to criminally investigate or prosecute any alcohol or drug abuse patient.[facility]In the event this information is protected by the Federal Confidentiality of Alcohol and Drug Abuse Patient Records regulations: The Federal rules restrict any use of the information to criminally investigate or prosecute any alcohol or drug abuse patient.[facility]In the event this information is protected by the Federal Confidentiality of Alcohol and Drug Abuse Patient Records regulations: The Federal rules restrict any use of the information to criminally investigate or prosecute any alcohol or drug abuse patient.[facility]In the event this information is protected by the Federal Confidentiality of Alcohol and Drug Abuse Patient Records regulations: The Federal rules restrict any use of the information to criminally investigate or prosecute any alcohol or drug abuse patient.[facility]In the event this information is protected by the Federal Confidentiality of Alcohol and Drug Abuse Patient Records regulations: The Federal rules restrict any use of the information to criminally investigate or prosecute any alcohol or drug abuse patient.[facility]In the event this information is protected by the Federal Confidentiality of Alcohol and Drug Abuse Patient Records regulations: The Federal rules restrict any use of the information to criminally investigate or prosecute any alcohol or drug abuse patient.[facility]In the event this information is protected by the Federal Confidentiality of Alcohol and Drug Abuse Patient Records regulations: The Federal rules restrict any use of the information to criminally investigate or prosecute any alcohol or drug abuse patient.[facility]In the event this information is protected by the Federal Confidentiality of Alcohol and Drug Abuse Patient Records regulations: The Federal rules restrict any use of the information to criminally investigate or prosecute any alcohol or drug abuse patient.[facility]In the event this information is protected by the Federal Confidentiality of Alcohol and Drug Abuse Patient Records regulations: The Federal rules restrict any use of the information to criminally investigate or prosecute any alcohol or drug abuse patient.[facility] CampusIn the event this information is protected by the Federal Confidentiality of Alcohol and Drug Abuse Patient Records regulations: The Federal rules restrict any use of the information to criminally investigate or prosecute any alcohol or drug abuse patient.[facility]In the event this information is protected by the Federal Confidentiality of Alcohol and Drug Abuse Patient Records regulations: The Federal rules restrict any use of the information to criminally investigate or prosecute any alcohol or drug abuse patient.[facility] CampusIn the event this information is protected by the Federal Confidentiality of Alcohol and Drug Abuse Patient Records regulations: The Federal rules restrict any use of the information to criminally investigate or prosecute any alcohol or drug abuse patient.[facility]In the event this information is protected by the Federal Confidentiality of Alcohol and Drug Abuse Patient Records regulations: The Federal rules restrict any use of the information to criminally investigate or prosecute any alcohol or drug abuse patient.[facility]In the event this information is protected by the Federal Confidentiality of Alcohol and Drug Abuse Patient Records regulations: The Federal rules restrict any use of the information to criminally investigate or prosecute any alcohol or drug abuse patient.[facility]In the event this information is protected by the Federal Confidentiality of Alcohol and Drug Abuse Patient Records regulations: The Federal rules restrict any use of the information to criminally investigate or prosecute any alcohol or drug abuse patient.[facility] CampusIn the event this information is protected by the Federal Confidentiality of Alcohol and Drug Abuse Patient Records regulations: The Federal rules restrict any use of the information to criminally investigate or prosecute any alcohol or drug abuse patient.[facility] CampusIn the event this information is protected by the Federal Confidentiality of Alcohol and Drug Abuse Patient Records regulations: The Federal rules restrict any use of the information to criminally investigate or prosecute any alcohol or drug abuse patient.[facility] CampusIn the event this information is protected by the Federal Confidentiality of Alcohol and Drug Abuse Patient Records regulations: The Federal rules restrict any use of the information to criminally investigate or prosecute any alcohol or drug abuse patient.[facility] CampusIn the event this information is protected by the Federal Confidentiality of Alcohol and Drug Abuse Patient Records regulations: The Federal rules restrict any use of the information to criminally investigate or prosecute any alcohol or drug abuse patient.[facility]In the event this information is protected by the Federal Confidentiality of Alcohol and Drug Abuse Patient Records regulations: The Federal rules restrict any use of the information to criminally investigate or prosecute any alcohol or drug abuse patient.[facility]In the event this information is protected by the Federal Confidentiality of Alcohol and Drug Abuse Patient Records regulations: The Federal rules restrict any use of the information to criminally investigate or prosecute any alcohol or drug abuse patient.[facility]In the event this information is protected by the Federal Confidentiality of Alcohol and Drug Abuse Patient Records regulations: The Federal rules restrict any use of the information to criminally investigate or prosecute any alcohol or drug abuse patient.[facility]In the event this information is protected by the Federal Confidentiality of Alcohol and Drug Abuse Patient Records regulations: The Federal rules restrict any use of the information to criminally investigate or prosecute any alcohol or drug abuse patient.[facility] CampusIn the event this information is protected by the Federal Confidentiality of Alcohol and Drug Abuse Patient Records regulations: The Federal rules restrict any use of the information to criminally investigate or prosecute any alcohol or drug abuse patient.[facility] CampusIn the event this information is protected by the Federal Confidentiality of Alcohol and Drug Abuse Patient Records regulations: The Federal rules restrict any use of the information to criminally investigate or prosecute any alcohol or drug abuse patient.[facility]In the event this information is protected by the Federal Confidentiality of Alcohol and Drug Abuse Patient Records regulations: The Federal rules restrict any use of the information to criminally investigate or prosecute any alcohol or drug abuse patient.[facility]In the event this information is protected by the Federal Confidentiality of Alcohol and Drug Abuse Patient Records regulations: The Federal rules restrict any use of the information to criminally investigate or prosecute any alcohol or drug abuse patient.[facility]In the event this information is protected by the Federal Confidentiality of Alcohol and Drug Abuse Patient Records regulations: The Federal rules restrict any use of the information to criminally investigate or prosecute any alcohol or drug abuse patient.[facility]In the event this information is protected by the Federal Confidentiality of Alcohol and Drug Abuse Patient Records regulations: The Federal rules restrict any use of the information to criminally investigate or prosecute any alcohol or drug abuse patient.[facility]In the event this information is protected by the Federal Confidentiality of Alcohol and Drug Abuse Patient Records regulations: The Federal rules restrict any use of the information to criminally investigate or prosecute any alcohol or drug abuse patient.[facility]In the event this information is protected by the Federal Confidentiality of Alcohol and Drug Abuse Patient Records regulations: The Federal rules restrict any use of the information to criminally investigate or prosecute any alcohol or drug abuse patient.[facility]In the event this information is protected by the Federal Confidentiality of Alcohol and Drug Abuse Patient Records regulations: The Federal rules restrict any use of the information to criminally investigate or prosecute any alcohol or drug abuse patient.[facility]In the event this information is protected by the Federal Confidentiality of Alcohol and Drug Abuse Patient Records regulations: The Federal rules restrict any use of the information to criminally investigate or prosecute any alcohol or drug abuse patient.[facility]In the event this information is protected by the Federal Confidentiality of Alcohol and Drug Abuse Patient Records regulations: The Federal rules restrict any use of the information to criminally investigate or prosecute any alcohol or drug abuse patient.[facility]In the event this information is protected by the Federal Confidentiality of Alcohol and Drug Abuse Patient Records regulations: The Federal rules restrict any use of the information to criminally investigate or prosecute any alcohol or drug abuse patient.[facility]In the event this information is protected by the Federal Confidentiality of Alcohol and Drug Abuse Patient Records regulations: The Federal rules restrict any use of the information to criminally investigate or prosecute any alcohol or drug abuse patient.[facility]In the event this information is protected by the Federal Confidentiality of Alcohol and Drug Abuse Patient Records regulations: The Federal rules restrict any use of the information to criminally investigate or prosecute any alcohol or drug abuse patient.[facility]In the event this information is protected by the Federal Confidentiality of Alcohol and Drug Abuse Patient Records regulations: The Federal rules restrict any use of the information to criminally investigate or prosecute any alcohol or drug abuse patient.[facility]In the event this information is protected by the Federal Confidentiality of Alcohol and Drug Abuse Patient Records regulations: The Federal rules restrict any use of the information to criminally investigate or prosecute any alcohol or drug abuse patient.[facility]In the event this information is protected by the Federal Confidentiality of Alcohol and Drug Abuse Patient Records regulations: The Federal rules restrict any use of the information to criminally investigate or prosecute any alcohol or drug abuse patient.[facility]In the event this information is protected by the Federal Confidentiality of Alcohol and Drug Abuse Patient Records regulations: The Federal rules restrict any use of the information to criminally investigate or prosecute any alcohol or drug abuse patient.[facility]In the event this information is protected by the Federal Confidentiality of Alcohol and Drug Abuse Patient Records regulations: The Federal rules restrict any use of the information to criminally investigate or prosecute any alcohol or drug abuse patient.[facility]In the event this information is protected by the Federal Confidentiality of Alcohol and Drug Abuse Patient Records regulations: The Federal rules restrict any use of the information to criminally investigate or prosecute any alcohol or drug abuse patient.[facility] CampusIn the event this information is protected by the Federal Confidentiality of Alcohol and Drug Abuse Patient Records regulations: The Federal rules restrict any use of the information to criminally investigate or prosecute any alcohol or drug abuse patient.[facility]In the event this information is protected by the Federal Confidentiality of Alcohol and Drug Abuse Patient Records regulations: The Federal rules restrict any use of the information to criminally investigate or prosecute any alcohol or drug abuse patient.[facility]In the event this information is protected by the Federal Confidentiality of Alcohol and Drug Abuse Patient Records regulations: The Federal rules restrict any use of the information to criminally investigate or prosecute any alcohol or drug abuse patient.[facility]In the event this information is protected by the Federal Confidentiality of Alcohol and Drug Abuse Patient Records regulations: The Federal rules restrict any use of the information to criminally investigate or prosecute any alcohol or drug abuse patient.[facility]In the event this information is protected by the Federal Confidentiality of Alcohol and Drug Abuse Patient Records regulations: The Federal rules restrict any use of the information to criminally investigate or prosecute any alcohol or drug abuse patient.[facility]In the event this information is protected by the Federal Confidentiality of Alcohol and Drug Abuse Patient Records regulations: The Federal rules restrict any use of the information to criminally investigate or prosecute any alcohol or drug abuse patient.[facility]In the event this information is protected by the Federal Confidentiality of Alcohol and Drug Abuse Patient Records regulations: The Federal rules restrict any use of the information to criminally investigate or prosecute any alcohol or drug abuse patient.[facility]In the event this information is protected by the Federal Confidentiality of Alcohol and Drug Abuse Patient Records regulations: The Federal rules restrict any use of the information to criminally investigate or prosecute any alcohol or drug abuse patient.[facility]In the event this information is protected by the Federal Confidentiality of Alcohol and Drug Abuse Patient Records regulations: The Federal rules restrict any use of the information to criminally investigate or prosecute any alcohol or drug abuse patient.[facility]In the event this information is protected by the Federal Confidentiality of Alcohol and Drug Abuse Patient Records regulations: The Federal rules restrict any use of the information to criminally investigate or prosecute any alcohol or drug abuse patient.[facility]In the event this information is protected by the Federal Confidentiality of Alcohol and Drug Abuse Patient Records regulations: The Federal rules restrict any use of the information to criminally investigate or prosecute any alcohol or drug abuse patient.[facility]In the event this information is protected by the Federal Confidentiality of Alcohol and Drug Abuse Patient Records regulations: The Federal rules restrict any use of the information to criminally investigate or prosecute any alcohol or drug abuse patient.[facility]In the event this information is protected by the Federal Confidentiality of Alcohol and Drug Abuse Patient Records regulations: The Federal rules restrict any use of the information to criminally investigate or prosecute any alcohol or drug abuse patient.[facility]In the event this information is protected by the Federal Confidentiality of Alcohol and Drug Abuse Patient Records regulations: The Federal rules restrict any use of the information to criminally investigate or prosecute any alcohol or drug abuse patient.[facility]In the event this information is protected by the Federal Confidentiality of Alcohol and Drug Abuse Patient Records regulations: The Federal rules restrict any use of the information to criminally investigate or prosecute any alcohol or drug abuse patient.[facility]In the event this information is protected by the Federal Confidentiality of Alcohol and Drug Abuse Patient Records regulations: The Federal rules restrict any use of the information to criminally investigate or prosecute any alcohol or drug abuse patient.[facility]In the event this information is protected by the Federal Confidentiality of Alcohol and Drug Abuse Patient Records regulations: The Federal rules restrict any use of the information to criminally investigate or prosecute any alcohol or drug abuse patient.[facility]In the event this information is protected by the Federal Confidentiality of Alcohol and Drug Abuse Patient Records regulations: The Federal rules restrict any use of the information to criminally investigate or prosecute any alcohol or drug abuse patient.[facility]In the event this information is protected by the Federal Confidentiality of Alcohol and Drug Abuse Patient Records regulations: The Federal rules restrict any use of the information to criminally investigate or prosecute any alcohol or drug abuse patient.[facility]In the event this information is protected by the Federal Confidentiality of Alcohol and Drug Abuse Patient Records regulations: The Federal rules restrict any use of the information to criminally investigate or prosecute any alcohol or drug abuse patient.[facility]In the event this information is protected by the Federal Confidentiality of Alcohol and Drug Abuse Patient Records regulations: The Federal rules restrict any use of the information to criminally investigate or prosecute any alcohol or drug abuse patient.[facility]In the event this information is protected by the Federal Confidentiality of Alcohol and Drug Abuse Patient Records regulations: The Federal rules restrict any use of the information to criminally investigate or prosecute any alcohol or drug abuse patient.[facility]In the event this information is protected by the Federal Confidentiality of Alcohol and Drug Abuse Patient Records regulations: The Federal rules restrict any use of the information to criminally investigate or prosecute any alcohol or drug abuse patient.[facility]In the event this information is protected by the Federal Confidentiality of Alcohol and Drug Abuse Patient Records regulations: The Federal rules restrict any use of the information to criminally investigate or prosecute any alcohol or drug abuse patient.[facility]In the event this information is protected by the Federal Confidentiality of Alcohol and Drug Abuse Patient Records regulations: The Federal rules restrict any use of the information to criminally investigate or prosecute any alcohol or drug abuse patient.[facility]In the event this information is protected by the Federal Confidentiality of Alcohol and Drug Abuse Patient Records regulations: The Federal rules restrict any use of the information to criminally investigate or prosecute any alcohol or drug abuse patient.[facility]In the event this information is protected by the Federal Confidentiality of Alcohol and Drug Abuse Patient Records regulations: The Federal rules restrict any use of the information to criminally investigate or prosecute any alcohol or drug abuse patient.[facility]In the event this information is protected by the Federal Confidentiality of Alcohol and Drug Abuse Patient Records regulations: The Federal rules restrict any use of the information to criminally investigate or prosecute any alcohol or drug abuse patient.[facility]In the event this information is protected by the Federal Confidentiality of Alcohol and Drug Abuse Patient Records regulations: The Federal rules restrict any use of the information to criminally investigate or prosecute any alcohol or drug abuse patient.[facility]In the event this information is protected by the Federal Confidentiality of Alcohol and Drug Abuse Patient Records regulations: The Federal rules restrict any use of the information to criminally investigate or prosecute any alcohol or drug abuse patient.[facility]In the event this information is protected by the Federal Confidentiality of Alcohol and Drug Abuse Patient Records regulations: The Federal rules restrict any use of the information to criminally investigate or prosecute any alcohol or drug abuse patient.[facility]In the event this information is protected by the Federal Confidentiality of Alcohol and Drug Abuse Patient Records regulations: The Federal rules restrict any use of the information to criminally investigate or prosecute any alcohol or drug abuse patient.[facility] CampusIn the event this information is protected by the Federal Confidentiality of Alcohol and Drug Abuse Patient Records regulations: The Federal rules restrict any use of the information to criminally investigate or prosecute any alcohol or drug abuse patient.[facility] CampusIn the event this information is protected by the Federal Confidentiality of Alcohol and Drug Abuse Patient Records regulations: The Federal rules restrict any use of the information to criminally investigate or prosecute any alcohol or drug abuse patient.[facility] CampusIn the event this information is protected by the Federal Confidentiality of Alcohol and Drug Abuse Patient Records regulations: The Federal rules restrict any use of the information to criminally investigate or prosecute any alcohol or drug abuse patient.[facility] CampusIn the event this information is protected by the Federal Confidentiality of Alcohol and Drug Abuse Patient Records regulations: The Federal rules restrict any use of the information to criminally investigate or prosecute any alcohol or drug abuse patient.[facility] CampusIn the event this information is protected by the Federal Confidentiality of Alcohol and Drug Abuse Patient Records regulations: The Federal rules restrict any use of the information to criminally investigate or prosecute any alcohol or drug abuse patient.[facility] CampusIn the event this information is protected by the Federal Confidentiality of Alcohol and Drug Abuse Patient Records regulations: The Federal rules restrict any use of the information to criminally investigate or prosecute any alcohol or drug abuse patient.[facility] CampusIn the event this information is protected by the Federal Confidentiality of Alcohol and Drug Abuse Patient Records regulations: The Federal rules restrict any use of the information to criminally investigate or prosecute any alcohol or drug abuse patient.[facility] CampusIn the event this information is protected by the Federal Confidentiality of Alcohol and Drug Abuse Patient Records regulations: The Federal rules restrict any use of the information to criminally investigate or prosecute any alcohol or drug abuse patient.[facility] CampusIn the event this information is protected by the Federal Confidentiality of Alcohol and Drug Abuse Patient Records regulations: The Federal rules restrict any use of the information to criminally investigate or prosecute any alcohol or drug abuse patient.[facility] CampusIn the event this information is protected by the Federal Confidentiality of Alcohol and Drug Abuse Patient Records regulations: The Federal rules restrict any use of the information to criminally investigate or prosecute any alcohol or drug abuse patient.[facility] CampusIn the event this information is protected by the Federal Confidentiality of Alcohol and Drug Abuse Patient Records regulations: The Federal rules restrict any use of the information to criminally investigate or prosecute any alcohol or drug abuse patient.[facility] CampusIn the event this information is protected by the Federal Confidentiality of Alcohol and Drug Abuse Patient Records regulations: The Federal rules restrict any use of the information to criminally investigate or prosecute any alcohol or drug abuse patient.[facility] CampusIn the event this information is protected by the Federal Confidentiality of Alcohol and Drug Abuse Patient Records regulations: The Federal rules restrict any use of the information to criminally investigate or prosecute any alcohol or drug abuse patient.[facility] CampusIn the event this information is protected by the Federal Confidentiality of Alcohol and Drug Abuse Patient Records regulations: The Federal rules restrict any use of the information to criminally investigate or prosecute any alcohol or drug abuse patient.[facility] CampusIn the event this information is protected by the Federal Confidentiality of Alcohol and Drug Abuse Patient Records regulations: The Federal rules restrict any use of the information to criminally investigate or prosecute any alcohol or drug abuse patient.[facility] CampusIn the event this information is protected by the Federal Confidentiality of Alcohol and Drug Abuse Patient Records regulations: The Federal rules restrict any use of the information to criminally investigate or prosecute any alcohol or drug abuse patient.[facility] CampusIn the event this information is protected by the Federal Confidentiality of Alcohol and Drug Abuse Patient Records regulations: The Federal rules restrict any use of the information to criminally investigate or prosecute any alcohol or drug abuse patient.[facility] CampusIn the event this information is protected by the Federal Confidentiality of Alcohol and Drug Abuse Patient Records regulations: The Federal rules restrict any use of the information to criminally investigate or prosecute any alcohol or drug abuse patient.[facility] CampusIn the event this information is protected by the Federal Confidentiality of Alcohol and Drug Abuse Patient Records regulations: The Federal rules restrict any use of the information to criminally investigate or prosecute any alcohol or drug abuse patient.[facility] CampusIn the event this information is protected by the Federal Confidentiality of Alcohol and Drug Abuse Patient Records regulations: The Federal rules restrict any use of the information to criminally investigate or prosecute any alcohol or drug abuse patient.[facility] CampusIn the event this information is protected by the Federal Confidentiality of Alcohol and Drug Abuse Patient Records regulations: The Federal rules restrict any use of the information to criminally investigate or prosecute any alcohol or drug abuse patient.[facility] CampusIn the event this information is protected by the Federal Confidentiality of Alcohol and Drug Abuse Patient Records regulations: The Federal rules restrict any use of the information to criminally investigate or prosecute any alcohol or drug abuse patient.[facility] CampusIn the event this information is protected by the Federal Confidentiality of Alcohol and Drug Abuse Patient Records regulations: The Federal rules restrict any use of the information to criminally investigate or prosecute any alcohol or drug abuse patient.[facility] CampusIn the event this information is protected by the Federal Confidentiality of Alcohol and Drug Abuse Patient Records regulations: The Federal rules restrict any use of the information to criminally investigate or prosecute any alcohol or drug abuse patient.[facility] CampusIn the event this information is protected by the Federal Confidentiality of Alcohol and Drug Abuse Patient Records regulations: The Federal rules restrict any use of the information to criminally investigate or prosecute any alcohol or drug abuse patient.[facility] CampusIn the event this information is protected by the Federal Confidentiality of Alcohol and Drug Abuse Patient Records regulations: The Federal rules restrict any use of the information to criminally investigate or prosecute any alcohol or drug abuse patient.[facility] CampusIn the event this information is protected by the Federal Confidentiality of Alcohol and Drug Abuse Patient Records regulations: The Federal rules restrict any use of the information to criminally investigate or prosecute any alcohol or drug abuse patient.[facility] CampusIn the event this information is protected by the Federal Confidentiality of Alcohol and Drug Abuse Patient Records regulations: The Federal rules restrict any use of the information to criminally investigate or prosecute any alcohol or drug abuse patient.[facility] CampusIn the event this information is protected by the Federal Confidentiality of Alcohol and Drug Abuse Patient Records regulations: The Federal rules restrict any use of the information to criminally investigate or prosecute any alcohol or drug abuse patient.[facility] CampusIn the event this information is protected by the Federal Confidentiality of Alcohol and Drug Abuse Patient Records regulations: The Federal rules restrict any use of the information to criminally investigate or prosecute any alcohol or drug abuse patient.[facility] CampusIn the event this information is protected by the Federal Confidentiality of Alcohol and Drug Abuse Patient Records regulations: The Federal rules restrict any use of the information to criminally investigate or prosecute any alcohol or drug abuse patient.[facility] Reason for Visit (unrecogniz ed section and [...] CONSULT TO PHYSICAL THERAPY (AG) Belgica Herrera [address] [place] [address] Pt [facility] [address] [place] [address] Reason Comments Patient Update Reason Comments Consult CONSULTS TO ENT AND OPTHALMOLOGY Status Reason Specialty Diagnoses / Procedures Referred By Contact 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 F41.8 Procedures EST PATIENT VISIT LEVEL 1 MYC PSYC/PSYL NEW VIDEO (ZOOM) Belgica Herrera [address] [place] [address] Juancho Benedict (Operations/Dispatch-S) [address] [facility] [address] [place] [address] Reason Comments Hypertension Nausea Musculoskeletal Problem body aches and p ain Reason Comments Patient Update Neurology referral, no number on file for the patient Reason Comments Appointment CONSULT TO PHYSICAL THERAPY PLACED Reason Comments Results Appointment Patient Update Reason Onset Date Comments Pay Agent Chronic Care 07/22/2021 PCC f/u Reason Onset Date Comments Pay Agent Chronic Care 07/23/2021 Refill Reason Onset Date Comments Pay Agent Chronic Care 08/05/2021 PCC f/u Specialty Diagnoses / Procedures Referred By Contac t Referred To Contact MR IMAGING Diagnoses Malignant neoplasm of rectosigmoid junction (HCC) Procedures MRI PELVIS WO/W IVCON MRI PELVIS W/WO CONTRAST Artem Ahmadi MD [address] [facility] [address] [place] [address] Mr Imaging Referral ID Status Reason Start Date Expiration Date V isits Requested Visits Authorized Closed Auto-Generate d Referral 06/10/2021 01/10/2022 1 1 Reason Comments Follow Up mri results and diab etic Reason Onset Date Comments Pay Agent Chronic Care 09/06/2021 PCC f/u Reason Onset Date Comments Transition Of Care 09/08/2021 ED D/C 09/07/21 Pay Agent - Patient Initiated 11/2021 Received call from pt Reason Onset Date Comments Pay Agent Chronic Care 09/17/2021 PCC f/u Reason Comments Internal Referrals/resources Ophthalmolo gy Reason Comments ER F/U boil on the neck Reason Comments Internal Referrals/resources Nephrology Reason Comments Two Week Follow Up Reason Comments Schedule Surgery Reason Comments Follow Up Phone Call called pt mailbox f ull mailed letter Reason Comments Prostate Problem BPH Reason Onset Date Comments Pay Agent Chronic Care 11/01/2021 PCC f/u Reason Comments Follow Up Reason Comments Schedule Surgery Phaco Right Eye Reason Comments Diabetes Reason Comments Letter Reason Onset Date Comments Pay Agent Chronic Care 12/03/2021 PCC f/u Reason Onset Date Comments Pay Agent Chronic Care 12/28/2021 PCC f/u Reason Comments Hypertension Reason Onset Date Comments Pay Agent Chronic Care 01/07/2022 PCC f/u Reason Comments Appointment Reason Comments Consult Reason Onset Date Comments Psychiatric Problem 01/17/2022 Reason Onset Date Comments Pay Agent Hospital Follow Up 01/01 Hospital admit - [facility] Reason Onset Date Comments Behavioral Problem 01/19/2022 Reason Comments Appointment A-scan reminder Surgery Cancelled Per Patient Reason Onset Date Comments Transition Of Care 01/28/2022 CC Taoist D /C to SNF 01/27/22 Reason Onset Date Comments Transition Of Care 02/21/2022 SNF status - SNF D/C 02/15/22 Pay Agent Chronic Care 02/21/2022 PCC f/u Reason Comments No Show Reason Comments Hypertension Pt wants to discuss PET scan to see why his body is in so much brooks Reason Onset Date Comments Pay Agent Chronic Care 03/11/2022 PCC f/u Transition Of Care 03/11/2022 TCM f/u Reason Onset Date Comments Transition Of Care 03/17/2022 TCM f/u Pay Agent Chronic Care 03/17/2022 PCC f/u Reason Onset Date Comments Transition Of Care 04/05/2022 AG D/C Reason Comments Ambulatory Social Work Community resourc es Reason Onset Date Comments Pay Agent Chronic Care 04/21/2022 PCC f/u Transition Of Care 04/21/2022 TCM f/u Reason Onset Date Comments Pay Agent Chronic Care 04/26/2022 PCC f/u Transition Of Care 04/26/2022 TCM f/u Reason Comments eyeglass perscription Reason Onset Date Comments Pay Agent Chronic Care 05/11/2022 PCC f/u Reason Comments [...] sx Specialty Diagnoses / Procedures Referred By Contac t Referred To Contact Diagnoses Pain of left hip Procedures ARTHROCENTESIS ASPIR&/INJ MAJOR JT/BURSA W/O US INJECTION HIP ARTHROGRAPHY W/O ANESTHESIA INJECT HIP LEFT Ak Interventional Radiology [address] [facility] [place] [address] Referral ID Status Reason Start Date Expiration Date Visits Re quested Visits Authorized [id number] 1 1 Specialty Diagnoses / Procedures Referred By Vadim wiseman Referred To Contact MR IMAGING Diagnoses Pain in hip Chronic left hip pain Procedures MRI ARTHROGRAM HIP LEFT MRI ANY JT LOWER EXTREM W/CONTRAST MATERIAL Binh Lake R, DO [address] [place] [address] Mr Imaging Referral ID Status Reason Start Date Expiration Date V isits Requested Visits Authorized [id number] Closed Auto-Generate d Referral 07/01/2022 07/31/2023 1 1 Reason Comments Established Patient Reason Comments Post-op (Ophthalmology) Right Eye Reason Comments Established Patient mri Follow Up mri Pain mri Reason Comments Hospital Follow Up Vomiting and dehydra kurt Reason Comments Consult Cardio / Mershon / Nep hro Reason Onset Date Comments Pay Agent Chronic Care 09/29/2022 PCC f/u Transition Of Care 09/29/2022 TCM f/u Reason Onset Date Comments Transition Of Care 10/03/2022 TCM f/u Pay Agent Chronic Care 10/03/2022 PCC f/u Reason Comments New Reason Onset Date Comments Pay Agent Chronic Care 10/12/2022 PCC f/u Transition Of Care 10/12/2022 TCM f/u Reason Comments New Patient Evaluation Ischemia Reason Comments Patient Question Reason Onset Date Comments Pay Agent Chronic Care 11/01/2022 PCC f/u Transition Of Care 11/01/2022 TCM f/u Reason Comments Results Surgical pathology Reason Comments Benign Prostatic Hypertrophy Nocturia Reason Comments Consult Endocrinology Reason Comments Consult Dermatology Reason Comments Results Abcess on right unde rarm Reason Comments Internal Referrals/resources Neurology Reason Comments Appointment New patient Referral Reason Comments Pay Agent Chronic Care Pt feels sick Reason Onset Date Comments Pay Agent Chronic Care 11/24/2022 PCC f/u Reason Comments Consult Pain Management Reason Comments Medication Follow-up Reason Comments Established Patient Follow Up Pain Reason Onset Date Comments Pay Agent Chronic Care 01/27/2023 PCC f/u Reason Onset Date Comments Pay Agent Chronic Care 05/19/2023 PCC f/u Reason Onset Date Comments Pay Agent Chronic Care 05/23/2023 D/C Care Coordination - Non-CC PCP Reason Comments Consult New Patient Specialty Diagnoses / Procedures Referred By Contac t Referred To Contact Endocrinology Diagnoses Diabetes mellitus due to underlying condition, uncontrolled, with hyperglycemia (HCC) H/O medication noncompliance Procedures CONSULT TO ENDOCRINOLOGY OFFICE/OUTPATIENT NEW HIGH MDM 60-74 MINUTES Belgica Vega DO [address] [facility] [address] [place] [address] Referral ID Status Reason Start Date Expiration Date V isits Requested Visits Authorized [id number] Closed PCP Requested Referral 11/04/2022 11/04/2023 1 1 Reason Comments CKD Follow Up Reason Comments Home Care MD to follow Reason Comments Home Care Confirmation Call Reason Comments Home Care Specialty Diagnoses / Procedures Referred By Contac t Referred To Contact [facility] Home Care [address] [place] [address] Referral ID Status Reason Start Date Expiration Date Visits Re quested Visits Authorized [id number] 1 1 Reason Comments Home Care Scheduling [...] Comments Medication Problem 04/27/2024 Prior Authorization 04/27/2024 Reason Comments Altered Mental Status Pt presents to ED via EMS from [facility] for responding slowly and indicates he is cold. Specialty Diagnoses / Procedures Referred By Contac t Referred To Contact Diagnoses Chills Procedures [id number] Flori Hills MD [address] [place] [address] Phone: tel: fax: [facility] ED [address] [place] [address] Phone: tel: fax: Referral ID Status Reason Start Date Expiration Date Visits Re quested Visits Authorized [id number] 1 1 Telephone Encounter - Bunny Giraldo) - 02/17/2020 9:28 AM ESTTelephone Encounter - Belgica Herrera - 02/17/2020 5:55 PM ESTTelephone Encounter - Samia Thomason) - 02/18/2020 2:25 PM EST Miscellaneous Notes (unrecog nized section and content) CONSULT TO ORTHOPAEDIC SURGERY PLACED. CONF. 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 Glucose was 322. Please have [...] this encounter Consult to behavioral health, # [id number] documented in this encounter Consult to behavioral health, # [id number] documented in this encounter Please notify patient received form from [employer] indicating that they will only provide him with temporary supply of Actos/metformin 15-500 mg. Please have patient contact insurance to see what is on formulary to replace it.Thank you, Belgica Herrera D.O. documented in this encounter Please notify patient of PT concerns below:Urvashi I recently evaluated José Manuel for outpatient [...] Belgica Herrera D.O. ----- Message from Carla MerchantPtJuhi Tripathi sent at 05/05/2020 6:22 PM EST [...] TO OPHTHALMOLOGY PLACED IN PORTAL CONF # [id number] CONSULT TO ENT PLACED IN PORTAL CONF # [id number] Bunny Giraldo LPN 02/21/2020 11:36 AM documented in this encounter Please send letter to patient regarding the above Thank you, Belgica Herrera D.O. The department of Neurology called into the office stating that they have tried reaching out to the patient at the telephone number listed in the patients chart [phone] and when called she reached a lady who stated that the number was incorrect and she has tried telling people from [facility] this several times. Neurology has no way in contacting the patient regarding scheduling a appointment due to no number on file. Eden Aragon CMA documented in this encounter CONSULT TO PHYSICAL THERAPY PLACED. CONF. # [id number] Bunny Giraldo LPN 02/17/2020 9:48 AM documented in this encounter Eden Aragon) - 03/23/2020 4:42 PM EST Nursing Notes (unrecognized section and content) Patient has been identified by name and date of : Yes José Manuel Ashton is here for an injection of Multi Dose Flu, 1st Shingrix Given without incident. Dr. Belgica Herrera, present in clinic at time of injection. [...] section and content) DATE CREATED AUTHOR 01/28/2021 [facility] DATE CREATED AUTHOR AUTHOR'S ORGANIZ ATION 02/28/2022 [facility] DATE CREATED AUTHOR AUTHOR'S ORGANIZ ATION 05/17/2024 [facility] DATE CREATED AUTHOR AUTHOR'S ORGANIZ ATION 07/25/2024 [facility] DATE CREATED AUTHOR AUTHOR'S ORGANIZ ATION 12/09/2024 [facility] DATE CREATED AUTHOR AUTHOR'S ORGANIZ ATION 12/25/2024 [facility] DATE CREATED AUTHOR AUTHOR'S ORGANIZ ATION 02/01/2025 [facility] Care Teams (unrecognized sec tion and content) 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 Specialty Start Date End Date Belgica Vega DO [address] [place], [place] [id number] PCP - General Family Practice 02/26/21 Belgica Vega DO [address] [place], [place] [id number] Family Practice 02/26/21 Jen Bergman, filling technicianPay Agent 09/23/20 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 Specialty Start Date End Date Belgica Vega DO [address] [place] [address] PCP - General Family Practice 02/26/21 Belgica Vega, DO [address] [place] [address] [facility] Practice 02/26/21 Jen Bergman, filling technicianPay Agent 09/23/20 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 Specialty Start Date End Date Belgica Vega, DO [address] [place] [address] PCP - General [facility] Practice 02/26/21 Belgica Vega, DO [address] [place] [address] [facility] Practice 02/26/21 Jen Bergman, filling technicianPay Agent 09/23/20 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 Specialty Start Date End Date Belgica Vega, DO [address] [place] [address] PCP - General [facility] Practice 02/26/21 Belgica Vega, DO [address] [place] [address] [facility] Practice 02/26/21 Jen Bergman, filling technicianPay Agent 09/23/20 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 Specialty Start Date End Date Belgica Vega, DO [address] [place] [address] PCP - General [facility] Practice 02/26/21 Belgica Vega, DO [address] [place] [address] [facility] Practice 02/26/21 Jen Bergman, filling technicianPay Agent 09/23/20 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 Specialty Start Date End Date Belgica Vega, DO [address] [place] [address] PCP - General [facility] Practice 02/26/21 Belgica Vega, DO [address] [place] [address] Family Practice 02/26/21 Jen Bergman, filling technicianPay Agent 09/23/20 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 Specialty Start Date End Date Belgica Vega, DO [address] [place] [address] PCP - General Family Practice 02/26/21 Belgica Vega, DO [address] [place] [address] Family Practice 02/26/21 Jen Bergman, filling technicianPay Agent 09/23/20 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 Specialty Start Date End Date Belgica Vega DO [address] [place] [address] PCP - General Family Practice 02/26/21 Belgica Vega, DO [address] [place] [address] Family Practice 02/26/21 Jen Bergman, filling technicianPay Agent 09/23/20 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 Specialty Start Date End Date Belgica Vega DO [address] [place] [address] PCP - General Family Practice 02/26/21 Belgica Vega, DO [address] [place] [address] Family Practice 02/26/21 Jen Bergman, filling technicianPay Agent 09/23/20 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 Specialty Start Date End Date Belgica Vega DO [address] [place] [address] PCP - General Family Practice 02/26/21 Belgica Vega DO [address] [place] [address] Family Practice 02/26/21 Jen Bergman, filling technicianPay Agent 09/23/20 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 Specialty Start Date End Date Belgica Vega, DO [address] [place] [address] PCP - General Family Practice 02/26/21 Belgica Vega, DO [address] [place] [address] Family Practice 02/26/21 Jen Bergman, filling technicianPay Agent 09/23/20 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 Specialty Start Date End Date Belgica Vega, DO [address] [place] [address] PCP - General Family Practice 02/26/21 Belgica Vega, DO [address] [place] [address] Family Practice 02/26/21 Jen Bergman, filling technicianPay Agent 09/23/20 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 Specialty Start Date End Date Belgica Vega, DO [address] [place] [address] PCP - General Family Practice 02/26/21 Belgica Vega, DO [address] [place] [address] Family Practice 02/26/21 Jen Bergman, filling technicianPay Agent 09/23/20 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 Specialty Start Date End Date Belgica Vega, DO [address] [place] [address] PCP - General Family Practice 02/26/21 Belgica Vega, DO [address] [place] [address] Family Practice 02/26/21 Jen Bergman, filling technicianPay Agent 09/23/20 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 Specialty Start Date End Date Belgica eVga, DO [address] [place] [address] PCP - General Family Practice 02/26/21 Belgica Vega, DO [address] [place] [address] Family Practice 02/26/21 Jen Bergman, filling technicianPay Agent 09/23/20 Belgica Vega, DO [address] [place] [address] Referring Family Practice 10/08/21 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 Specialty Start Date End Date Belgica Vega DO [address] [place] [address] PCP - General Family Practice 02/26/21 Belgica Vega, DO [address] [place] [address] Family Practice 02/26/21 Jen Bergman, filling technicianPay Agent 09/23/20 Belgica Vega, DO [address] [place] [address] Referring Family Practice 10/08/21 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 Specialty Start Date End Date Belgica Vega DO [address] [place] [address] PCP - General Family Practice 02/26/21 Belgica Vega, DO [address] [place] [address] Family Practice 02/26/21 Jen Bergman, filling technicianPay Agent 09/23/20 Belgica Vega, DO [address] [place] [address] Referring Family Practice 10/08/21 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 Specialty Start Date End Date Belgica Vega, DO [address] [place] [address] PCP - General Family Practice 02/26/21 Belgica Vega, DO [address] [place] [address] Family Practice 02/26/21 Jen Bergman, filling technicianPay Agent 09/23/20 Belgica Vega, DO [address] [place] [address] Referring Family Practice 10/08/21 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 Specialty Start Date End Date Belgica Vega, DO [address] [place] [address] PCP - General Family Practice 02/26/21 Belgica Vega, DO [address] [place] [address] Family Practice 02/26/21 Jen Bergman, filling technicianPay Agent 09/23/20 Belgica Vega, DO [address] [place] [address] Referring Family Practice 10/08/21 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 Specialty Start Date End Date Belgica Vega, DO [address] [place] [address] PCP - General Family Practice 02/26/21 Belgica Vega, DO [address] [place] [address] Family Practice 02/26/21 Jen Bergman, filling technicianPay Agent 09/23/20 Belgica Vega, DO [address] [place] [address] Referring Family Practice 10/08/21 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 Specialty Start Date End Date Belgica Vega, DO [address] [place] [address] PCP - General Family Practice 02/26/21 Belgica Vega, DO [address] [place] [address] Family Practice 02/26/21 Jen Bergman RN Pay Agent 09/23/20 Belgica Vega, DO [address] [place] [address] Referring Family Practice 10/08/21 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 Specialty Start Date End Date Belgica Vega DO PCP - General Family Practice 02/26/21 Belgica Vega, DO Family Practice 02/26/21 Jen Bergman, filling technicianPay Agent 09/23/20 Belgica Vega, DO Referring Family Practice 10/08/21 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 Specialty Start Date End Date Belgica Vega DO PCP - General Family Medicine 02/26/21 Belgica Vega DO Family Medicine 02/26/21 Jen Bergman, filling technicianPay Agent 09/23/20 Belgica Vega, DO Referring Family Medicine 10/08/21 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 Specialty Start Date End Date Belgica Vega, DO PCP - General Family Medicine 02/26/21 Belgica Vega, DO Family Medicine 02/26/21 Jen Bergman, filling technicianPay Agent 09/23/20 Belgica Vega, DO Referring Family Medicine 10/08/21 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 Specialty Start Date End Date Belgica Vega DO PCP - General Family Medicine 02/26/21 Belgica Vega DO Family Medicine 02/26/21 Jen Bergman, filling technicianPay Agent 09/23/20 Belgica Vega DO Referring Family Medicine 10/08/21 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 Specialty Start Date End Date Belgica Vega DO PCP - General Family Medicine 02/26/21 Belgica Vega DO Family Medicine 02/26/21 Jen Bergman, filling technicianPay Agent 09/23/20 Belgica Vega, DO Referring Family Medicine 10/08/21 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 Specialty Start Date End Date Belgica Vega DO PCP - General Family Medicine 02/26/21 Belgica Vega DO Family Medicine 02/26/21 Jen Bergman, filling technicianPay Agent 09/23/20 Belgica Vega, DO Referring Family Medicine 10/08/21 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 Specialty Start Date End Date Belgica Vega, DO PCP - General Family Medicine 02/26/21 Belgica Vega, DO Family Medicine 02/26/21 Jen Bergman, filling technicianPay Agent 09/23/20 Belgica Vega, DO Referring Family Medicine 10/08/21 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 Specialty Start Date End Date Belgica Vega, DO PCP - General Family Medicine 02/26/21 Belgica Vega, DO Family Medicine 02/26/21 Jen Bergman, filling technicianPay Agent 09/23/20 Belgica Vega, DO Referring Family Medicine 10/08/21 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 Specialty Start Date End Date Belgica Vega, DO PCP - General Family Medicine 02/26/21 Belgica Vega, DO Family Medicine 02/26/21 Jen Bergman, filling technicianPay Agent 09/23/20 Belgica Vega, DO Referring Family Medicine 10/08/21 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 Specialty Start Date End Date Belgica Vega, DO PCP - General Family Medicine 02/26/21 Belgica Vega, DO Family Medicine 02/26/21 Jen Bergman, filling technicianPay Agent 09/23/20 Belgica Vega, DO Referring Family Medicine 10/08/21 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 Specialty Start Date End Date Belgica Vega DO PCP - General Family Medicine 02/26/21 Belgica Vega, DO Family Medicine 02/26/21 Jen Bergman, filling technicianPay Agent 09/23/20 Belgica Vega DO Referring Family Medicine 10/08/21 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 Specialty Start Date End Date Belgica Vega DO PCP - General Family Medicine 02/26/21 Belgica Vega DO Family Medicine 02/26/21 Jen Bergman, filling technicianPay Agent 09/23/20 Belgica Vega DO Referring Family Medicine 10/08/21 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 Specialty Start Date End Date Belgica Vega DO PCP - General Family Medicine 02/26/21 Belgica Vega DO Family Medicine 02/26/21 Jen Bergman, filling technicianPay Agent 09/23/20 Belgica Vega DO Referring Family Medicine 10/08/21 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 Specialty Start Date End Date Belgica Vega, DO PCP - General Family Medicine 02/26/21 Belgica Vega, DO Family Medicine 02/26/21 Jen Bergman, filling technicianPay Agent 09/23/20 Belgica Vega, DO Referring Family Medicine 10/08/21 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 Specialty Start Date End Date Belgica Vega DO PCP - General Family Medicine 02/26/21 Belgica Vega, DO Family Medicine 02/26/21 Jen Bergman, filling technicianPay Agent 09/23/20 Belgica Vega DO Referring Family Medicine 10/08/21 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 Specialty Start Date End Date Belgica Vega DO PCP - General Family Medicine 02/26/21 Belgica Vega DO Family Medicine 02/26/21 Jen Bergman, filling technicianPay Agent 09/23/20 Belgica Vega, DO Referring Family Medicine 10/08/21 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 Specialty Start Date End Date Belgica Vega DO PCP - General Family Medicine 02/26/21 Belgica Vega, DO Family Medicine 02/26/21 Jen Bergman, filling technicianPay Agent 09/23/20 Belgica Vega, DO Referring Family Medicine 10/08/21 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 Specialty Start Date End Date Belgica Vega, DO PCP - General Family Medicine 02/26/21 Belgica Vega, DO Family Medicine 02/26/21 Jen Bergman, filling technicianPay Agent 09/23/20 Belgica Vega, DO Referring Family Medicine 10/08/21 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 Specialty Start Date End Date Belgica Vega DO PCP - General Family Medicine 02/26/21 Belgica Vega DO Family Medicine 02/26/21 Jen Bergman, filling technicianPay Agent 09/23/20 Belgica Vega, DO Referring Family Medicine 10/08/21 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 Specialty Start Date End Date Belgica Vega DO PCP - General Family Medicine 02/26/21 Belgica Vega DO Family Medicine 02/26/21 Jen Bergman, filling technicianPay Agent 09/23/20 Belgica Vega, DO Referring Family Medicine 10/08/21 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 Specialty Start Date End Date Belgica Vega DO PCP - General Family Medicine 02/26/21 Belgica Vega, DO Family Medicine 02/26/21 Jen Bergman, filling technicianPay Agent 09/23/20 Belgica Vega, DO Referring Family Medicine 10/08/21 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 Specialty Start Date End Date Belgica Vega DO PCP - General Family Medicine 02/26/21 Belgica Vega, DO Family Medicine 02/26/21 Jen Bergman, filling technicianPay Agent 09/23/20 Belgica Vega DO Referring Family Medicine 10/08/21 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 Specialty Start Date End Date Belgica Vega DO PCP - General Family Medicine 02/26/21 Belgica Vega DO Family Medicine 02/26/21 Jen Bergman, filling technicianPay Agent 09/23/20 Belgica Vega DO Referring Family Medicine 10/08/21 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 Specialty Start Date End Date Belgica Vega DO PCP - General Family Medicine 02/26/21 Belgica Vega DO Family Medicine 02/26/21 Jen Bergman, filling technicianPay Agent 09/23/20 Belgica Vega DO Referring Family Medicine 10/08/21 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 Specialty Start Date End Date Belgica Vega DO PCP - General Family Medicine 02/26/21 Belgica Vega, DO Family Medicine 02/26/21 Jen Bergman, filling technicianPay Agent 09/23/20 Belgica Vega, DO Referring Family Medicine 10/08/21 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 Specialty Start Date End Date Belgica Vega, DO PCP - General Family Medicine 02/26/21 Belgica Vega, DO Family Medicine 02/26/21 Jen Bergman, filling technicianPay Agent 09/23/20 Belgica Vega, DO Referring Family Medicine 10/08/21 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 Specialty Start Date End Date Belgica Vega DO PCP - General Family Medicine 02/26/21 Belgica Vega, DO Family Medicine 02/26/21 Jen Bergman, filling technicianPay Agent 09/23/20 Belgica Vega, DO Referring Family Medicine 10/08/21 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 Specialty Start Date End Date Belgica Vega DO PCP - General Family Medicine 02/26/21 Belgica Vega, DO Family Medicine 02/26/21 Jen Bergman, filling technicianPay Agent 09/23/20 Belgica Vega, DO Referring Family Medicine 10/08/21 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 Specialty Start Date End Date Belgica Vega, DO PCP - General Family Medicine 02/26/21 Belgica Vega, DO Family Medicine 02/26/21 Jen Bergman, filling technicianPay Agent 09/23/20 Belgica Vega, DO Referring Family Medicine 10/08/21 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 Specialty Start Date End Date Belgica Vega DO PCP - General Family Medicine 02/26/21 Belgica Vega DO Family Medicine 02/26/21 Jen Bergman, filling technicianPay Agent 09/23/20 Belgica Vega DO Referring Family Medicine 10/08/21 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 Specialty Start Date End Date Belgica Vega DO PCP - General Family Medicine 02/26/21 Belgica Vega DO Family Medicine 02/26/21 Jen Bergman, filling technicianPay Agent 09/23/20 Belgica Vega, DO Referring Family Medicine 10/08/21 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 Specialty Start Date End Date Belgica Vega DO PCP - General Family Medicine 02/26/21 Belgica Vega, DO Family Medicine 02/26/21 Jen Bergman, filling technicianPay Agent 09/23/20 Belgica Vega, DO Referring Family Medicine 10/08/21 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 Specialty Start Date End Date Belgica Vega DO PCP - General Family Medicine 02/26/21 Belgica Vega DO Family Medicine 02/26/21 Jen Bergman, filling technicianPay Agent 09/23/20 Belgica Vega, DO Referring Family Medicine 10/08/21 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 Specialty Start Date End Date Belgica Vega DO PCP - General Family Medicine 02/26/21 Belgica Vega DO Family Medicine 02/26/21 Jen Bergman, filling technicianPay Agent 09/23/20 Belgica Vega DO Referring Family Medicine 10/08/21 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 Specialty Start Date End Date Belgica Vega DO PCP - General Family Medicine 02/26/21 Belgica Vega DO [address] [place] [address] Family Medicine 02/26/21 Jen Bergman, filling technicianPay Agent 09/23/20 Belgica Vega, DO Referring Family Medicine 10/08/21 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 Specialty Start Date End Date Belgica Vega DO PCP - General Family Medicine 02/26/21 Belgica Vega DO [address] [place] [address] Family Medicine 02/26/21 Jen Bergman, filling technicianPay Agent 09/23/20 Beglica Vega DO Referring Family Medicine 10/08/21 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 Specialty Start Date End Date Belgica Vega DO PCP - General Family Medicine 02/26/21 Belgica Vega DO [address] [place] [address] Family Medicine 02/26/21 Jen Bergman, filling technicianPay Agent 09/23/20 Belgica Vega DO Referring Family Medicine 10/08/21 Belgica Vega DO [address] [place] [address] Referring Family Medicine 10/03/22 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 Specialty Start Date End Date Belgica Vega DO PCP - General Family Medicine 02/26/21 Belgica Vega DO [address] [place] [address] Family Medicine 02/26/21 Jen Bergman, filling technicianPay Agent 09/23/20 Belgica Vega DO Referring Family Medicine 10/08/21 Belgica Vega DO [address] [place], [place] [address] [phone] Referring Family Medicine 10/03/22 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 Specialty Start Date End Date Belgica Vega DO PCP - General Family Medicine 02/26/21 Belgica Vega DO [address] [place] [address] Family Medicine 02/26/21 Jen Bergman, filling technicianPay Agent 09/23/20 Belgica Vega DO Referring Family Medicine 10/08/21 Belgica Vega DO [address] [place] [address] Referring Family Medicine 10/03/22 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 Specialty Start Date End Date Belgica Vega DO PCP - General Family Medicine 02/26/21 Belgica Vega DO [address] [place] [address] Family Medicine 02/26/21 Jen Bergman, filling technicianPay Agent 09/23/20 Belgica Vega DO Referring Family Medicine 10/08/21 Belgica Vega DO [address] [place] [address] Referring Family Medicine 10/03/22 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 Specialty Start Date End Date Belgica Vega DO PCP - General Family Medicine 02/26/21 Belgica Vega DO [address] [place] [address] Family Medicine 02/26/21 Jen Bergman, filling technicianPay Agent 09/23/20 Belgica Vega DO Referring Family Medicine 10/08/21 Belgica Vega DO [address] [place] [address] Referring Family Medicine 10/03/22 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 Specialty Start Date End Date Belgica Vega DO PCP - General Family Medicine 02/26/21 Belgica Vega DO [address] [place] [address] Family Medicine 02/26/21 Jen Bergman, filling technicianPay Agent 09/23/20 Belgica Vega DO Referring Family Medicine 10/08/21 Belgica Vega DO [address] [place] [address] Referring Family Medicine 10/03/22 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 Specialty Start Date End Date Belgica Vega DO PCP - General Family Medicine 02/26/21 Belgica Vega DO [address] [place] [address] Family Medicine 02/26/21 Jen Bergman, filling technicianPay Agent 09/23/20 Belgica Vega DO Referring Family Medicine 10/08/21 Belgica Vega DO [address] [place] [address] Referring Family Medicine 10/03/22 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 Specialty Start Date End Date Belgica Vega DO PCP - General Family Medicine 02/26/21 Belgica Vega DO [address] [place] [address] Family Medicine 02/26/21 Jen Bergman, filling technicianPay Agent 09/23/20 Belgica Vega DO Referring Family Medicine 10/08/21 Belgica Vega DO [address] [place] [address] Referring Family Medicine 10/03/22 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 Specialty Start Date End Date Belgica Vega DO PCP - General Family Medicine 02/26/21 Belgica Vega DO [address] [place] [address] Family Medicine 02/26/21 Jen Bergman, filling technicianPay Agent 09/23/20 Belgica Vega DO Referring Family Medicine 10/08/21 Belgica Vega DO [address] [place] [address] Referring Family Medicine 10/03/22 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 Specialty Start Date End Date Belgica Vega DO PCP - General Family Medicine 02/26/21 Belgica Vega DO [address] [place] [address] Family Medicine 02/26/21 Jen Bergman, filling technicianPay Agent 09/23/20 Belgica Vega DO Referring Family Medicine 10/08/21 Belgica Vega DO [address] [place] [address] Referring Family Medicine 10/03/22 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 Specialty Start Date End Date Belgica Vega DO PCP - General Family Medicine 02/26/21 Belgica Vega DO [address] [place] [address] Family Medicine 02/26/21 Jen Bergman, filling technicianPay Agent 09/23/20 Belgica Vega DO Referring Family Medicine 10/08/21 Belgica Vega DO [address] [place] [address] Referring Family Medicine 10/03/22 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 Specialty Start Date End Date Belgica Vega DO PCP - General Family Medicine 02/26/21 Belgica Vega DO [address] [place] [address] Family Medicine 02/26/21 Jen Bergman, filling technicianPay Agent 09/23/20 Belgica Vega DO Referring Family Medicine 10/08/21 Belgica Vega DO [address] [place] [address] Referring Family Medicine 10/03/22 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 Specialty Start Date End Date Belgica Vega DO PCP - General Family Medicine 02/26/21 Belgica Vega DO [address] [place] [address] Family Medicine 02/26/21 Jen Bergman, filling technicianPay Agent 09/23/20 Belgica Vega DO Referring Family Medicine 10/08/21 Belgica Vega DO [address] [place], [place] [address] [phone] Referring Family Medicine 10/03/22 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 Specialty Start Date End Date Belgica Vega DO PCP - General Family Medicine 02/26/21 Belgica Vega DO [address] [place], [place] [address] [phone] Family Medicine 02/26/21 Jen Bergman, filling technicianPay Agent 09/23/20 Belgica Vega DO Referring Family Medicine 10/08/21 Belgica Vega DO [address] [place] [address] Referring Family Medicine 10/03/22 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 Specialty Start Date End Date Belgica Vega DO PCP - General Family Medicine 02/26/21 Belgica Vega DO [address] [place] [address] Family Medicine 02/26/21 Jen Bergman, filling technicianPay Agent 09/23/20 Belgica Vega DO Referring Family Medicine 10/08/21 Belgica Vega DO [address] [place] [address] Referring Family Medicine 10/03/22 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 Specialty Start Date End Date Belgica Vega DO PCP - General Family Medicine 02/26/21 Belgica Vega DO [address] [place] [address] Family Medicine 02/26/21 Jen Bergman, filling technicianPay Agent 09/23/20 Belgica Vega DO Referring Family Medicine 10/08/21 Belgica Vega DO [address] [place], [place] [address] Referring Family Medicine 10/03/22 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 Specialty Start Date End Date Belgica Vega DO PCP - General Family Medicine 02/20/20 02/25/21 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 Specialty Start Date End Date Bunny Scott MD [address] [place] [address] PCP - General Internal Medicine 03/16/23 Belgica Vega DO [address] [facility] [address] [place] [address] Family Medicine 02/26/21 05/23/23 Jen Bergman, filling technicianPay Agent 09/23/20 Belgica Vega DO Referring Family Medicine 10/08/21 05/23/23 Belgica Vega DO [address] [place] [address] Referring Family Medicine 10/03/22 05/23/23 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 Specialty Start Date End Date Bunny Scott MD [address] [place] [address] PCP - General Internal Medicine 03/16/23 Belgica Vega DO [address] [place] [address] Family Medicine 02/26/21 05/23/23 Jen Bergman, filling technicianPay Agent 09/23/20 Belgica Vega DO Referring Family Medicine 10/08/21 05/23/23 Belgica Vega DO [address] [place] [address] Referring Family Medicine 10/03/22 05/23/23 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 Specialty Start Date End Date Bunny Scott MD [address] [place] [address] PCP - General Internal Medicine 03/16/23 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 Specialty Start Date End Date Bunny Scott MD [address] [place] [address] PCP - General Internal Medicine 03/16/23 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 Specialty Start Date End Date Bunny Scott MD [address] [place] [address] PCP - General Internal Medicine 03/16/23 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 Specialty Start Date End Date Bunny Scott MD [address] [place] [address] PCP - General Internal Medicine 03/16/23 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 Specialty Start Date End Date Bunny Scott MD [address] [place] [address] PCP - General Internal Medicine 03/16/23 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 Specialty Start Date End Date Bunny Scott MD [address] [place] [address] PCP - General Internal Medicine 03/16/23 Bunny Scott MD [address] [place] [address] Home Care Provider Internal Medicine 10/12/23 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 Specialty Start Date End Date Bunny Scott MD [address] [place] [address] PCP - General Internal Medicine 03/16/23 Bunny Scott MD [address] [place] [address] Home Care Provider Internal Medicine 10/12/23 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 Specialty Start Date End Date Bunny Scott MD [address] [place] [address] PCP - General Internal Medicine 03/16/23 Bunny Scott MD [address] [place] [address] Home Care Provider Internal Medicine 10/12/23 Simeon Hinds, LEATHA [address] [facility] [place] [address] Stock Pitcher Post Acute Care 10/20/23 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 Specialty Start Date End Date Bunny Scott MD [address] [place] [address] PCP - General Internal Medicine 03/16/23 Bunny Scott MD [address] [place] [address] Home Care Provider Internal Medicine 10/12/23 Simeon Hinds RN [address] [facility], [place] [id number] Stock Pitcher Post Acute Care 10/20/23 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 Specialty Start Date End Date Bunny Scott MD [address] [place] [address] PCP - General Internal Medicine 03/16/23 Bunny Scott MD [address] [place] [address] Home Care Provider Internal Medicine 10/12/23 Simeon Hinds RN [address] [facility] [place] [address] Stock Pitcher Post Acute Care 10/20/23 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 Specialty Start Date End Date Bunny Scott MD [address] [place] [address] PCP - General Internal Medicine 03/16/23 Bunny Scott MD [address] [place] [address] Home Care Provider Internal Medicine 10/12/23 Simeon Hinds RN [address] [facility] [place] [address] Stock Pitcher Post Acute Care 10/20/23 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 Specialty Start Date End Date Bunny Scott MD [address] [place] [address] PCP - General Internal Medicine 03/16/23 Bunny Scott MD [address] [place] [address] Home Care Provider Internal Medicine 10/12/23 Simeon Hinds RN [address] [facility] [place] [address] Stock Pitcher Post Acute Care 10/20/23 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 Specialty Start Date End Date Bunny Scott MD [address] [place] [address] PCP - General Internal Medicine 03/16/23 Bunny Scott MD [address] [place] [address] Home Care Provider Internal Medicine 10/12/23 Simeon Hinds RN [address] [facility] [place] [address] Stock Pitcher Post Acute Care 10/20/23 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 Specialty Start Date End Date Bunny Scott MD [address] [place] [address] PCP - General Internal Medicine 03/16/23 Bunny Scott MD [address] [place] [address] Home Care Provider Internal Medicine 10/12/23 Simeon Hinds RN [address] [facility] [place] [address] Stock Pitcher Post Acute Care 10/20/23 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 Specialty Start Date End Date Bunny Scott MD [address] [place] [address] PCP - General Internal Medicine 03/16/23 Bunny Scott MD [address] [place] [address] Home Care Provider Internal Medicine 10/12/23 Simeon Hinds RN [address] [facility], [place] [phone] Stock Pitcher Post Acute Care 10/20/23 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 Specialty Start Date End Date Bunny Scott MD [address] [place] [address] PCP - General Internal Medicine 03/16/23 Bunny Scott MD [address] [place] [address] Home Care Provider Internal Medicine 10/12/23 Simeon Hinds RN [address] [facility] [place] [address] Stock Pitcher Post Acute Care 10/20/23 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 Specialty Start Date End Date Bunny Scott MD [address] [place] [address] PCP - General Internal Medicine 03/16/23 Bunny Scott MD [address] [place] [address] Home Care Provider Internal Medicine 10/12/23 Simeon Hinds RN [address] [facility], [place] [id number] Stock Pitcher Post Acute Care 10/20/23 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 Specialty Start Date End Date Bunny Scott MD [address] [place] [address] PCP - General Internal Medicine 03/16/23 Bunny Scott MD [address] [place] [address] Home Care Provider Internal Medicine 10/12/23 Simeon Hinds, LEATHA [address] [facility], [place] [id number] Stock Pitcher Post Acute Care 10/20/23 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 Specialty Start Date End Date Bunny Scott MD [address] [place] [address] PCP - General Internal Medicine 03/16/23 Bunny Scott MD [address] [place] [address] Home Care Provider Internal Medicine 10/12/23 Simeon Hinds RN [address] [facility] [place] [address] Stock Pitcher Post Acute Care 10/20/23 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 Specialty Start Date End Date Bunny Scott MD [address] [place] [address] PCP - General Internal Medicine 03/16/23 Bunny Scott MD [address] [place] [address] Home Care Provider Internal Medicine 10/12/23 Simeon Hinds RN [address] [facility], [place] [phone] Stock Pitcher Post Acute Care 10/20/23 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 Specialty Start Date End Date Bunny Scott MD [address] [place] [address] PCP - General Internal Medicine 03/16/23 Bunny Scott MD [address] [place] [address] Home Care Provider Internal Medicine 10/12/23 Simeon Hinds, RN [address] [facility] [place] [address] Stock Pitcher Post Acute Care 10/20/23 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 Specialty Start Date End Date Bunny Scott MD [address] [place] [address] PCP - General Internal Medicine 03/16/23 Bunny Scott MD [address] [place] [address] Home Care Provider Internal Medicine 10/12/23 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 Specialty Start Date End Date Bunny Scott MD [address] [place] [address] PCP - General Internal Medicine 03/16/23 Bunny Scott MD [address] [place] [address] Home Care Provider Internal Medicine 10/12/23 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 Specialty Start Date End Date Bunny Scott MD [address] [place] [address] PCP - General Internal Medicine 03/16/23 Bunny Scott MD [address] [place] [address] Home Care Provider Internal Medicine 10/12/23 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 Specialty Start Date End Date Bunny Scott MD [address] [place] [address] PCP - General Internal Medicine 03/16/23 Bunny Scott MD [address] [place] [address] Home Care Provider Internal Medicine 10/12/23 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 Specialty Start Date End Date Bunny Scott MD [address] [place] [address] PCP - General Internal Medicine 03/16/23 Bunny Scott MD [address] [place] [address] Home Care Provider Internal Medicine 10/12/23 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 Specialty Start Date End Date Bunny Scott MD [address] [place] [address] PCP - General Internal Medicine 03/16/23 Bunny Scott MD [address] [place] [address] Home Care Provider Internal Medicine 10/12/23 Jose Dudley MD [address] [address] Physician Nephrology 01/23/24 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 Specialty Start Date End Date Bunny Scott MD [address] [place] [address] PCP - General Internal Medicine 03/16/23 Bunny Scott MD [address] [place], [place] [id number] Home Care Provider Internal Medicine 10/12/23 Jose Dudley MD [address] [address] Physician Nephrology 01/23/24 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 Specialty Start Date End Date Bunny Scott MD [address] [place], [place] [id number] PCP - General Internal Medicine 03/16/23 Bunny Scott MD [address] [place] [address] Home Care Provider Internal Medicine 10/12/23 Jose Dudley MD [address] [address] Physician Nephrology 01/23/24 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 Specialty Start Date End Date Bunny Scott DO [address] [facility] [address] [place] [id number] PCP - General Family Medicine 12/13/23 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 Specialty Start Date End Date Bunny Scott MD [address] [place], [place] [id number] PCP - General Internal Medicine 03/16/23 Bunny Scott MD [address] [place], [place] [id number] Home Care Provider Internal Medicine 10/12/23 Jose Dudley MD [address] [address] Physician Nephrology 01/23/24 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 Specialty Start Date End Date Bunny Scott MD [address] [place] [address] PCP - General Internal Medicine 03/16/23 Bunny Scott MD [address] [place] [address] Home Care Provider Internal Medicine 10/12/23 Jose Dudley MD [address] [address] Physician Nephrology 01/23/24 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 Specialty Start Date End Date Bunny Scott MD [address] [place] [address] PCP - General Internal Medicine 03/16/23 Bunny Scott MD [address] [place] [address] Home Care Provider Internal Medicine 10/12/23 Jose Dudley MD [address] [address] Physician Nephrology 01/23/24 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 Specialty Start Date End Date Bunny Scott DO [address] [facility] [address] [place] [phone] PCP - General Family Medicine 12/13/23 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 Specialty Start Date End Date Bunny Scott MD [address] [place] [address] PCP - General Internal Medicine 03/16/23 Bunny Scott MD [address] [place] [address] Home Care Provider Internal Medicine 10/12/23 Jose Dudley MD [address] [address] Physician Nephrology 01/23/24 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 Specialty Start Date End Date Bunny Scott MD [address] [place] [address] PCP - General Internal Medicine 03/16/23 Bunny Scott MD [address] [place] [address] Home Care Provider Internal Medicine 10/12/23 Jose Dudley MD [address] [address] Physician Nephrology 01/23/24 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 Specialty Start Date End Date Bunny Scott MD [address] [place] [address] PCP - General Internal Medicine 03/16/23 Bunny Scott MD [address] [place] [address] Home Care Provider Internal Medicine 10/12/23 Jose Dudley MD [address] [address] Physician Nephrology 01/23/24 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 Start Date End Date Bunny Scott MD [address] [place] [address] PCP - General Internal Medicine 03/16/23 Bunny Scott MD [address] [place] [address] Home Care Provider Internal Medicine 07/16/24 Jose Dudley MD [address] [address] Physician Nephrology 01/23/24 Bunny Scott MD [address] [place] [address] Referring Internal Medicine 07/16/24 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 Specialty Start Date End Date Bunny Scott MD [address] [place] [address] PCP - General Internal Medicine 03/16/23 Bunny Scott MD [address] [place] [address] Home Care Provider Internal Medicine 07/16/24 Jose Dudley MD [address] [address] Physician Nephrology 01/23/24 Bunny Scott MD [address] [place] [address] Referring Internal Medicine 07/16/24 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 Specialty Start Date End Date Bunny Scott DO [address] [place] [address] PCP - General Family Medicine 12/13/23 Team Status: Inactive Member Role Status Dates Brittaney LORENZO MD Attending Provider Active Start: August 28, 2024 End: August 28, 2024 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 Specialty Start Date End Date Brittaney Garcia MD [address] [place] [address] PCP - General Family Medicine 11/25/24 PRN Active and Recently Administ ered Medications (unrecognized section and content) Medication Order 08/28/2022 08/29/2022 08/30/2022 lidocaine 20 mg/mL (2 %) injection (XYLOCAINE) X (OR/PROCEDURE) PRN, Starting on Mon08/30/22 at 0737, Until Mon08/31/22 at 0305, Intraprocedure 0737 (Given - Provid er: Lamonte Curtis MD, MD) Scheduled Medication Order 11/27/2024 11/28/2024 11/29/2024 amLODIPine (Norvasc) tablet 5 mg 5 mg, Oral, Daily, First dose on Mon11/25/24 at 1725 0901 (Given - Provider: Kalyani Oreilly RN) 0904 (Given - Provider: Kalyani Oreilly RN) 0900 (Canceled Entry - Provider: Automatic Discharge Provider - Comment: Automatically canceled at discontinue of medication order) chlorhexidine (Hibiclens) 4 % solution Topical, Daily, First dose on Mon11/30/24 at 1400 cyclobenzaprine (Flexeril) tablet 5 mg 5 mg, Oral, 3 times daily, First dose on Mon11/26/24 at 2145 0627 (Given - Provider: Carla Reid RN - Comment: patient takes morning , afternoon and at bedtime)1404 (Given - Provider: Kalyani Oreilly RN)2136 (Given - Provider: Lee Farfan RN) 09 (Given - Provider: Kalyani Oreilly RN)1304 (Given - Provider: Kalyani Oreilly RN)2121 (Given - Provider: Lee Farfan RN) 0900 (Not Given - Provider: Christie Orozco RN - Reason: Other - Comment: dialysis)1630 (Given - Provider: Christie Orozco RN)2099 (Canceled Entry - Provider: Automatic Discharge Provider - Comment: Automatically canceled at discontinue of medication order) heparin injection 5,000 Units 5,000 Units, SubCUTAneous, Every 12 hours scheduled (2 times per day), First dose on Mon11/25/24 at 2100 0900 (Given - Provider: Kalyani Oreilly RN)2137 (Given - Provider: Lee Farfan RN) 09 (Given - Provider: Kalyani Oreilly RN)2121 (Given - Provider: Lee Farfan RN) 0900 (Canceled Entry - Provider: Automatic Discharge Provider - Comment: Automatically canceled at discontinue of medication order)2099 (Canceled Entry - Provider: Automatic Discharge Provider - Comment: Automatically canceled at discontinue of medication order) hydrALAZINE (Apresoline) tablet 50 mg 50 mg, Oral, 2 times daily, First dose on Mon11/25/24 at 2100 0901 (Given - Provider: Kalyani Oreilly RN)2136 (Given - Provider: Lee Farfan RN) 09 (Given - Provider: Kalyani Oreilly RN)2121 (Given - Provider: Lee Farfan RN) 0900 (Canceled Entry - Provider: Automatic Discharge Provider - Comment: Automatically canceled at discontinue of medication order)2099 (Canceled Entry - Provider: Automatic Discharge Provider - Comment: Automatically canceled at discontinue of medication order) insulin glargine (Lantus) injection 10 Units 10 Units, SubCUTAneous, Nightly, First dose on Mon11/26/24 at 2100 213 (Given - Provider: Lee Farfan RN) 2122 (Given - Provider: Lee Farfan RN) 2100 (Canceled Entry - Provider: Automatic Discharge Provider - Comment: Automatically canceled at discontinue of medication order) Insulin Lispro (Humalog) injection 0-6 Units(Linked Group 1) 0-6 Units, SubCUTAneous, 3 times daily with meals, First dose (after last modification) on Mon11/26/24 at 1700, Low Dose Correction Algorithm Glucose: Dose: LESS than 149 No Insulin 150-199 1 Unit 200-249 2 Units 250-299 3 Units 300-349 4 Units 350-400 5 Units Above 400 6 Units 0846 (Not Given - Provider: Kalyani Oreilly RN - Reason: Order parameters not met)1201 (Not Given - Provider: Kalyani Oreilly RN - Reason: Order parameters not met)2138 (Given - Provider: Lee Farfan RN - Comment: dialysis) 0907 (Not Given - Provider: Kalyani Oreilly RN - Reason: Order parameters not met)1252 (Not Given - Provider: Kalyani Oreilly RN - Reason: Order parameters not met)1736 (Not Given - Provider: Kalyani Oreilly RN - Reason: Order parameters not met) 0811 (Not Given - Provider: Christie Orozco RN - Reason: Order parameters not met)1200 (Not Given - Provider: Christie Orozco RN - Reason: Order parameters not met - Comment: dialysis, patient not eating)1600 (Given - Provider: Christie Orozco RN) Insulin Lispro (Humalog) injection 3 Units 3 Units, SubCUTAneous, 3 times daily with meals, First dose on Mon11/26/24 at 1700 0901 (Given - Provider: Kalyani rOeilly RN)1212 (Given - Provider: Kalyani Oreilly RN)2138 (Given - Provider: Lee Farfan RN - Comment: dialysis) 0906 (Given - Provider: Kalyani Oreilly RN)1304 (Given - Provider: Kalyani Oreilly RN)1739 (Given - Provider: Kalyani Oreilly RN) 0905 (Given - Provider: Christie Orozco RN)1200 (Not Given - Provider: Christie Orozco RN - Reason: Order parameters not met - Comment: dialysis, patient not eating)1600 (Given - Provider: Christie Orozco RN) oxyCODONE-acetaminophen (Percocet) 5-325 MG per tablet 1 tablet 1 tablet, Oral, Once, On Mon11/25/24 at 1355, For 1 dose, Maximum dose of acetaminophen is 4000 mg from all sources in 24 hours. vancomycin (Vancocin) 750 mg in sodium chloride 0.9 % 250 mL IVPB (COMPLETED) 750 mg, IntraVENous, at 250 mL/hr, Administer over 60 Minutes, Once, On Mon11/27/24 at 1800, For 1 dose, Give after HD session complete. ADD-[place] bag, Suspected Indication (Select all that apply): Sepsis of Unknown Etiology 2138 (New Bag - Provider: Lee Farfan, RN - Comment: dialysis) 0 (Stopped - Provider: Lee Farfan, LEATHA) vancomycin (Vancocin) intermittent dosing (placeholder) Other, See admin instructions, Starting on Mon11/26/24 at 0724, Placeholder for vancomycin pulse dosing. Pharmacy will order one-time doses based on random levels. PRN Medication Order 11/27/2024 11/28/2024 11/29/2024 acetaminophen (Tylenol) suppository 650 mg(Linked Group 2) 650 mg, Rectal, Every 6 hours PRN, fever, For temp greater than 100.4 F (38 C), Starting on Mon11/25/24 at 1721, Administer if oral route cannot be used. Maximum dose of acetaminophen is 4000 mg from all sources in 24 hours. acetaminophen (Tylenol) tablet 650 mg(Linked Group 2) 650 mg, Oral, Every 6 hours PRN, mild pain (1-3), fever, For temp greater than 100.4 F (38 C), Starting on Mon11/25/24 at 1721, Maximum dose of acetaminophen is 4000 mg from all sources in 24 hours. dextrose 5 % infusion 100 mL/hr, IntraVENous, PRN, Blood sugar less than 70mg/dL, Starting on Mon11/25/24 at 1717, Start infusion following administration of dextrose 50% or glucagon. dextrose 50 % solution 12.5 g 12.5 g, IntraVENous, PRN, low blood sugar, Blood glucose less than 70 mg/dL and patient NOT ALERT or NPO., Starting on Mon11/25/24 at 1717, If patient does not respond within 5 minutes, repeat dose x1. Start D5W at 100 mL/hour until ordering provider can be reached. Repeat blood glucose in 15 minutes. If blood glucose is less than 70 mg/dL, repeat treatment and recheck blood glucose in 15 minutes x2. If using Glucostabilizer, dose as instructed per system. diazePAM (Valium) tablet 10 mg 10 mg, Oral, Every 8 hours PRN, anxiety, Starting on Mon11/26/24 at 2130 1306 (Given - Provider: Kalyani Oreilly, LEATHA)2122 (Given - Provider: Lee Farfan RN) 1726 (Given - Provider: Christie Orozco RN) glucagon (human recombinant) injection 1 mg 1 mg, IntraMUSCular, PRN, low blood sugar, Blood glucose less than 70 mg/dL and patient NOT ALERT or NPO and does not have IV access., Starting on Mon11/25/24 at 1717, After administration, attempt intravenous access and start D5W at 100 mL/hr. Repeat blood glucose in 15 minutes x2 and notify provider. glucose oral gel 15 g 15 g, Oral, As needed, low blood sugar, Starting on Mon11/25/24 at 1717, If blood glucose less than 50 mg/dL and patient ALERT and NOT NPO, give 2 tubes glucose gel. If blood glucose less than 70 mg/dL and patient ALERT and NOT NPO, give 1 tube glucose gel. Repeat blood glucose in 15 minutes. If blood glucose is less than 70 mg/dL, repeat treatment and recheck blood glucose in 15 minutes x2 and notify provider. heparin flush injection 1,800 Units 1,800 Units, IntraCATHeter, PRN, line care, Starting on Mon11/29/24 at 1144 heparin injection 1,200-2,000 Units 1,200-2,000 Units, IntraCATHeter, As needed, For hemodialysis system down vascular catheter, Starting on Mon11/29/24 at 1149, Dialysis, To ARTERIAL lumen. Use when system down. Dose based on lumen volume: 1,200 units = 1.2 mL 1,400 units = 1.4 mL 1,500 units = 1.5 mL 1,600 units = 1.6 mL 1,700 units = 1.7 mL 1,800 units = 1.8 mL 2,000 units = 2 mL heparin injection 1,200-2,000 Units 1,200-2,000 Units, IntraCATHeter, As needed, For hemodialysis system down vascular catheter, Starting on Mon11/29/24 at 1149, Dialysis, To VENOUS lumen. Use when system down. Dose based on lumen volume: 1,200 units = 1.2 mL 1,400 units = 1.4 mL 1,500 units = 1.5 mL 1,600 units = 1.6 mL 1,700 units = 1.7 mL 1,800 units = 1.8 mL 2,000 units = 2 mL heparin injection 1,200-2,000 Units 1,200-2,000 Units, IntraCATHeter, As needed, line care, For hemodialysis system down vascular catheter, Starting on Mon11/29/24 at 1242, To ARTERIAL lumen. Use when system down. Dose based on lumen volume: 1,200 units = 1.2 mL 1,400 units = 1.4 mL 1,500 units = 1.5 mL 1,600 units = 1.6 mL 1,700 units = 1.7 mL 1,800 units = 1.8 mL 2,000 units = 2 mL 1328 (Given - Provider: Luis France RN) heparin injection 1,200-2,000 Units 1,200-2,000 Units, IntraCATHeter, As needed, line care, For hemodialysis system down vascular catheter, Starting on Mon11/29/24 at 1242, To VENOUS lumen. Use when system down. Dose based on lumen volume: 1,200 units = 1.2 mL 1,400 units = 1.4 mL 1,500 units = 1.5 mL 1,600 units = 1.6 mL 1,700 units = 1.7 mL 1,800 units = 1.8 mL 2,000 units = 2 mL 1327 (Given - Provider: Luis France RN) ipratropium-albuterol (Duo-Neb) 0.5-2.5 mg/3 mL nebulizer solution 3 mL 3 mL, Nebulization, Every 4 hours PRN, shortness of breath, wheezing, Starting on Mon11/25/24 at 1717 naloxone (Narcan) injection 0.4 mg 0.4 mg, IntraVENous, Every 5 min PRN, opioid reversal, respiratory depression, Starting on Mon11/25/24 at 1724, +++ For RR <10, pinpoint pupils, over sedation for opioid reversal - MUST notify direct support professional caregiver provider immediately after first dose, may give IM or SQ if no IV access +++ ondansetron (Zofran) injection 4 mg(Linked Group 3) 4 mg, IntraVENous, Every 6 hours PRN, nausea, vomiting, Starting on Mon11/25/24 at 1721, 1st Line. Give IV if patient is unable to take orally. If inadequate response within 60 minutes, proceed to next-line agent or contact provider if no further options ordered. ondansetron ODT (Zofran-ODT) disintegrating tablet 4 mg(Linked Group 3) 4 mg, Oral, Every 8 hours PRN, nausea, vomiting, Starting on Mon11/25/24 at 1721, 1st Line. If inadequate response within 60 minutes, proceed to next-line agent or contact provider if no further options ordered. Patient should allow tablet to dissolve on tongue. Do not remove from blister pack until just before administering. oxyCODONE (Roxicodone) immediate release tablet 10 mg 10 mg, Oral, Every 6 hours PRN, severe pain (7-10), moderate pain (4-6), Starting on Mon11/25/24 at 1719 0416 (Given - Provider: Crala Reid RN)1212 (Given - Provider: Kalyani Oreilly RN)2137 (Given - Provider: Lee Farfan, LEATHA) 0408 (Given - Provider: Lee Farfan, RN)1025 (Self Administered Via Pump - Provider: Kalyani Oreilly RN)1740 (Given - Provider: Kalyani Oreilly RN) 0057 (Given - Provider: Lee Farfan, LEATHA)0905 (Given - Provider: Christie Orozco, RN)1629 (Given - Provider: Christie Orozco, RN) polyethylene glycol (PEG) 3350 (Miralax) packet 17 g 17 g, Oral, Daily PRN, constipation, Starting on Mon11/25/24 at 1721, 1st line for treatment of constipation - give scheduled if no bowel movement in past 24 hours. Linked Groups Order Group 1: Insulin Lispro (Humalog) injection 0-6 UnitsJump to med 0-6 Units, SubCUTAneous, 3 times daily with meals, First dose (after last modification) on Mon11/26/24 at 1700, Low Dose Correction Algorithm Glucose: Dose: LESS than 149 No Insulin 150-199 1 Unit 200-249 2 Units 250-299 3 Units 300-349 4 Units 350-400 5 Units Above 400 6 Units Group 2: acetaminophen (Tylenol) tablet 650 mgJump to med 650 mg, Oral, Every 6 hours PRN, mild pain (1-3), fever, For temp greater than 100.4 F (38 C), Starting on Mon11/25/24 at 1721, Maximum dose of acetaminophen is 4000 mg from all sources in 24 hours. Or acetaminophen (Tylenol) suppository 650 mgJump to med 650 mg, Rectal, Every 6 hours PRN, fever, For temp greater than 100.4 F (38 C), Starting on Mon11/25/24 at 1721, Administer if oral route cannot be used. Maximum dose of acetaminophen is 4000 mg from all sources in 24 hours. Group 3: ondansetron ODT (Zofran-ODT) disintegrating tablet 4 mgJump to med 4 mg, Oral, Every 8 hours PRN, nausea, vomiting, Starting on Mon11/25/24 at 1721, 1st Line. If inadequate response within 60 minutes, proceed to next-line agent or contact provider if no further options ordered. Patient should allow tablet to dissolve on tongue. Do not remove from blister pack until just before administering. Or ondansetron (Zofran) injection 4 mgJump to med 4 mg, IntraVENous, Every 6 hours PRN, nausea, vomiting, Starting on Mon11/25/24 at 1721, 1st Line. Give IV if patient is unable to take orally. If inadequate response within 60 minutes, proceed to next-line agent or contact provider if no further options ordered. Goals (unrecognized section and content) Goals may [...] BE BASED ON THE PRIMARY CLINICAL RECORDS. [facility]. provides no warranty or guarantee of the accuracy or completeness of information in this document.
[2025-02-04 09:06] LABS: Hematocrit 31.6 % (40-54); Hemoglobin 10.3 g/dL (13.0-16.5); Mean Corp Hgb Conc 32.6 g/dL (32-36); Mean Corpuscular Volume 92.4 fL (80-94); Mean Platelet Vol. 9.3 fl (6.2-12.0); Platelet Count 250 K/mm3 (150-450); RBC Distribution Width CV 12.8 % (11.6-14.6); RBC Distribution Width SD 43.2 fl (35.1-43.9); Red Blood Count 3.42 M/mm3 (4.6-6.2); White Blood Count 5.6 K/mm3 (4.4-11.0)
[2025-02-04 09:45] LABS: Anion Gap 14 (5-15); BUN 50 mg/dL (4-19); BUN/Creat Ratio 9.7 RATIO (10-20); Calcium,Total 9.3 mg/dL (7.6-11.0); Carbon Dioxide 24.6 mmol/L (21.0-32.0); Chloride 100 mmol/L (98-108); Glucose 121 mg/dL (70-99); Potassium 5.0 mmol/L (3.3-5.1)
== END ==
LOC: OLS.SANC 04:00
DX: D64.9 Anemia, unspecified (principal); E11.9 Type 2 diabetes mellitus without complications; E78.5 Hyperlipidemia, unspecified
CPT/HCPCS: 36415; 80048; 85027

== ENCOUNTER → 2025-03-24 05:00 | Outpatient (REF) | payer MEDICARE, MEDICAID, SELFPAY ==
--- OUTSIDE RECORDS SUMMARY | 2025-03-24 03:43 | XMS RPT_ITS | CCD ---
Author Organization [facility] Care Team Providers Care Grab Setter Name Role Phone Unavailable Primary Care Provider Unavailedward Herrera Belgica L Primary Care Provider Vega DO, Belgica L Primary Care Provider Vgea DO, Belgica L Unavailable Jen Bergman RN [...] L Unavailable Jen Bergman RN Unavailable Unavailable Veag DO, Belgica L Primary Care Provider Vega DO, Belgica L Unavailable Jen Bergman RN Unavailable Unavailable Vega DO, Belgica L Unavailable Vega DO, Belgica L Unavailable Bunny Scott MD Primary Care Provider Bunny Scott MD Primary Care Provider Bunny Scott MD Unavailable Simeon Hinds RN Unavailable Unavailable Primary Care Provider Unavailedward Dudley MD, Jose Unavailable [phone] EsterBunny judd DO Primary Care Provider ARTEM AHMADI Attending UnavailARTEM Durán Referring Unavailabl e TRISTAN SCOTTA M Primary Care Unavailable ESTERALYSIA, BUNNY M Primary Care Unavailable NOÉ KENNEDY Attending Unavailable BUNNY SCOTT Primary Care Unavailable ADELFO FRANCOIS Admitting Unavaila ADELFO [place] Attending Unavaila ble ANISHA, BUNNY M Primary Care Unavailable YULIYA OLIVARES Admitting Unavailable YULIYA OLIVARES Attending Unavailable Bunny Scott MD Unavailable Bunny Scott MD Unavailable Bunny Scott MD Primary Care Provider Bunny Scott MD Unavailable Bunny Scott MD Unavailable [phone] BUNNY SCOTT Primary Care Unavailable BUNNY SCOTT Primary Care Unavailable JOSE DUDLEY Consulting Unavailable BUNNY SCOTT Attending Unavailable BUNNY SCOTT Primary Care Unavailable BUNNY SCOTT Admitting Unavailable Brittaney Garcia MD Attending Provider Brittaney Rod MD Primary Care Provider BRITTANEY GARCIA Primary Care Unavailable FLORI HILLS Admitting Unavailable FLORI HILLS Attending Unavailable LUC HATCH Consulting Unavailable JUDITH ANGELES Consulting Unavailable WILLEM GAITAN Consulting Unavailable [place] OLS, Brittaney Attending Unavail able [place] OLS, Joseavesoniya Attending Unavail able [place] OLS, Joseaveer Attending Unavail able [place] OLS, Brittaney Referring Unavail able [place] OLS, Mahaveer Attending Unavail able [place] OLS, Brittaney Attending Unavail able BUNNY SCOTT Primary Care Unavailable NUSRAT ALATORRE Attending Unavailable BUNNY SCOTT Primary Care Unavailable NUSRAT ALATORRE Referring Unavailable Allergies Allergy Classification Reported Allergen(s) Allergy Type Date of Onset Reaction(s) Facility Penicillins (antibiotic) (4 sources) Penicillins Drug Allergy 07-24-2020 Unknown [facility] (18 sources) Penicillins; Translations: [PENICILLINS] Propensity to adverse reactions to drug 07-24-2020 Unknown [facility] (20 sources) Penicillins Propensity to adverse reactions to drug 07-24-2020 Unknown [facility] (5 sources) Penicillins Propensity to adverse reactions to drug 07-24-2020 Unknown [facility] (2 sources) Penicillins Propensity to adverse reactions 07-24-2020 Unknown [facility] Medications Current Medications Medication Drug Class(es) [...] tuberculin skin test, unspecified formulation Given 04/28/2021 [id number] 200 actuat albuterol 0.09 mg/actuat metered dose [...] Comment on above: Take 1 tablet by [facility] twice daily for 5 days. Take 1 [...] Entry) Start: 01-30-2022 take 1 capsule by [facility] every week ergocalciferol 50,000 unit capsule (VITAMIN D2, DRISDOL) Take 1 capsule by mouth one time a week. 4 capsule 0 01/30/2022 Active Comment on above: Take 1 capsule by [facility] one time a week. finasteride 5 mg oral tablet (13 sources) 5-alpha Reductase Inhibitor Start: 05-04-2022 End: 08-02-2022 take 1 tablet by mouth once daily finasteride (PROSCAR) 5 mg tablet Take 1 tablet by mouth once daily. 90 tablet 3 05/04/2022 08/02/2022 Active Comment on above: Take 1 tablet by [facility] once daily. furosemide 20 mg oral tablet [...] on above: Take 1 capsule by [facility] three times daily for 90 days. insulin [...] Active Start: 10-20-2023 insulin glargi ne (BASAGLAR ONEALIKPEN U-100 INSULIN) 100 unit/mL (3 mL) Inject 24 Units subcutaneously daily at bedtime. 5 Each 2 10/20/2023 Suspended Start: 06-10-2023 End: 09-08-2023 insulin glargine (BASAGLAR K SHONKPEN U-100 INSULIN) 100 unit/mL (3 mL) Inject [...] Comment on above: Take 1 tablet by ocrinne th every 6 hours as needed for [...] 10 days. Take 1 tablet by corinne twice daily for 5 days. Completed/Discontinued Medications [...] on above: Take 2 tablets by [facility] every 8 hours. atorvastatin 40 mg [...] ophthalmic solution (6 sources) Diagnostic Dye Start: End: fluorescein-benoxina te 0.3-0.4 % 1 Drop (FLURESS) Start: 12-29-2023 End: 12-30-2023 1 Drop, BOTH EYES, DIRECT ED, Starting on 12/29/23 at 1500, Until 12/30/23 at 0259, Administer for applanation tonometry. In the event of a Fluress shortage, administer [place]-Fluor 1 drop into both eyes as directed [...] sugars 3x/day (patient on insulin) 1 Each 05/18/2022 Active Start: 10-06-2020 End: 05-18-2022 Blood-Glucose [...] (20 sources) Vitamin D Start: 023 End: take 1 capsule by mouth every week cholecalciferol, Vitamin D3, (VITAMIN D3) 1,250 mcg (50,000 unit) cap capsule Indications: Vitamin D deficiency Take 1 capsule by mouth one time a week. 12 capsule 0 12/23/2022 05/23/2023 Discontinued Comment on above: Take 1 capsule by [facility] one time a week. cholecalciferol 9.52 [...] Comment on above: Take 1 capsule by [facility] three times daily. cyclobenzaprine hydrochloride 10 mg oral tablet (20 sources) Muscle Relaxant Start: End: take 5 mg by mouth three times daily 5 mg, Oral, 3 times daily, First dose on Mon11/26/24 at 2145 Start: 10-20-2023 take 1 tablet by corinne th three [...] mL pen injector (20 sources) Start: End: 024 inject 4.5 mg by subcutaneous [...] oral tablet (1 source) Thiazide Diuretic Start: 022 take 1 tablet by mouth once daily [...] sources) Antiarrhythmic, Amide Local Anesthetic Start: End: 024 apply 1 dose transdermal route once daily, [...] Angiotensin Converting Enzyme Inhibitor Start: 3 End: 4 take 1 tablet by mouth once daily [...] on above: Take 2 tablets by [facility] daily with dinner. Take 1 tablet by [...] Take 1 tablet by corinne twice daily with meals. 1 ml naloxone hydrochloride 0.4 mg/ml injection (2 sources) Opioid Antagonist Start: 025 End: 025 0.4 mg, IntraVENous, Every 5 min PRN, opioid reversal, respiratory depression, Starting on Mon11/25/24 at 1724, +++ For RR ondansetron 4 [...] corinne th once daily. polyethylene glycol 3350 17359 mg powder for oral solution (20 sources) [...] one time a week. 07/10/2024 Discontinued sennosides, prison 8.6 mg oral tablet (20 sources) Start: End: take 1 tablet by mouth once daily senna (SENOKOT) 8.6 mg tab Take 1 tablet by mouth once daily. 05/27/2023 07/10/2024 Discontinued Start: 09-16-2022 take 1 capsule by [facility] once daily Sennosides (SENNA) 8.6 mg cap Take 1 capsule by mouth once daily. 30 capsule 0 09/16/2022 Suspended Comment on above: Take 1 capsule by [facility] once daily. Take 1 tablet by [facility] once daily. 50 ml sodium chloride [...] on above: Take 1 capsule by [facility] once daily. tropicamide 10 mg/ml ophthalmic solution [...] on above: Take 1 capsule by [facility] daily with breakfast. Problems Active Problems [...] disease] 10-13-2022 Chronic Deficiency and other anemia (2 sources) Anemia, unspecified; Translations: [Anemia, unspecified] Onset: 5 [...] disease, with long-term current use of insulin ([facility])] Onset: 2 Diseases of mouth; excluding dental [...] malignant neoplasm] Episodic Other aftercare (3 sources) correction (current) use of insulin; Translations: [Type 2 [...] sources) Hidradenitis suppurativa; Translations: [Hidradenitis suppurativa] Episodic Peripheral and visceral atherosclerosis (1 source) Peripheral vascular disease, unspecified; Translations: [Peripheral arterial disease] Onset: 5 Chronic Residual codes; unclassified (20 sources) Obstructive sleep [...] (without fever); Translations: [Chills (without fever)] Onset: 5 Episodic Residual codes; unclassified (2 sources) Family [...] Translations: [Obesity, Class II, BMI 35-39.9] Onset: Past or Other Problems Problem Classification Problem [...] Test Name Value Interpretation Reference Range Facility UPPER EXT MAP FOR DIALYSIS A CCESS [facility] LABon 02-10-2025 UPPER EXT MAP FOR DIALYSIS ACCESS [facility] Non-Invasive [facility] Upper Extremity Mapping for Dialysis Access Bilateral/Complete Date of service/time: 02/10/2025 11:51:27 AM Name: MR. JOSÉ MANUEL ASHTON Date of : 1960 Age: 64 years Gender: M Clinical Indication Preplanning for arteriovenous fistula creation. TECHNIQUE -------- A duplex ultrasound examination was performed, including grayscale imaging and color Doppler and spectral Doppler examination of the below mentioned vessels. FINDINGS -------- Right systolic blood pressure: 108 mmHg Left systolic blood pressure: 112 mmHg RIGHT SIDE ARTERIES (measurements in centimeters) Brachial artery distal: PSV: 93 cm/s. EDV: 0 cm/s. Multiphasic waveform. Radial artery distal: 0.16 cm PSV: 64 cm/s. EDV: 0 cm/s. Multiphasic waveform. Ulnar artery distal: 0.27 cm PSV: 94 cm/s. EDV: 8 cm/s. Multiphasic waveform. VEINS (measurements in millimeters) Cephalic vein: At subclavian vein junction: diameter is 5.5 mm, depth is 43.8 mm Upper arm - Proximal: diameter is 3.7 mm, depth is 13.7 mm Upper arm - Mid: diameter is 3.8 mm, depth is 9.4 mm Upper arm - Distal: diameter is 3.0 mm, depth is 5.8 mm Antecubital fossa: diameter is 4.3 mm, depth is 5.0 mm Forearm - Proximal: diameter is 3.4 mm, depth is 7.4 mm Forearm - Mid: diameter is 3.1 mm, depth is 4.5 mm Forearm - Distal (at wrist): diameter is 2.6 mm, depth is 3.5 mm Basilic vein: Axillary/Brachial junction: diameter is 7.3 mm, depth is 21.0 mm Upper arm - Mid: diameter is 4.1 mm, depth is 14.0 mm Upper arm - Distal: diameter is 4.1 mm, depth is 5.5 mm Antecubital fossa: diameter is 1.9 mm, depth is 3.9 mm Forearm - Proximal: diameter is 1.6 mm, depth is 2.4 mm Forearm - Mid: diameter is 1.5 mm, depth is 1.9 mm Forearm - Distal (at wrist): diameter is 1.6 mm, depth is 2.8 mm Median cubital vein - Mid: diameter is 3.6 mm, depth is 4.3 mm VENOUS DOPPLER AND COMPRESSION Internal jugular vein Doppler: normal flow. Compression: abnormal. Subclavian vein Doppler: normal flow. Axillary vein Doppler: normal flow. Compression: normal. Brachial vein Doppler: normal flow. Compression: normal. Basilic vein Doppler: normal flow. Compression: normal. Cephalic vein Doppler: normal flow. Compression: normal. LEFT SIDE ARTERIES (measurements in centimeters) Brachial artery distal: 0.56 cm PSV: 86 cm/s. EDV: 0 cm/s. Multiphasic waveform. Radial artery distal: 0.19 cm PSV: 89 cm/s. EDV: 0 cm/s. Multiphasic waveform. Ulnar artery distal: 0.34 cm PSV: 97 cm/s. EDV: 10 cm/s. Multiphasic waveform. VEINS (measurements in millimeters) Cephalic vein: At subclavian vein junction: diameter is 5.2 mm, depth is 32.8 mm Upper arm - Proximal: diameter is 3.6 mm, depth is 13.1 mm Upper arm - Mid: diameter is 3.1 mm, depth is 8.3 mm Upper arm - Distal: diameter is 3.3 mm, depth is 4.8 mm Antecubital fossa: diameter is 4.7 mm, depth is 4.7 mm Forearm - Proximal: diameter is 3.1 mm, depth is 7.9 mm Forearm - Mid: diameter is 2.4 mm, depth is 8.0 mm Forearm - Distal (at wrist): diameter is 2.3 mm, depth is 3.1 mm Basilic vein: Axillary/Brachial junction: diameter is 4.2 mm, depth is 21.4 mm Upper arm - Mid: diameter is 3.8 mm, depth is 13.4 mm Upper arm - Distal: diameter is 3.9 mm, depth is 11.9 mm Antecubital fossa: diameter is 2.8 mm, depth is 10.5 mm Forearm - Proximal: diameter is 1.1 mm, depth is 2.4 mm Forearm - Mid: diameter is 1.0 mm, depth is 2.7 mm Forearm - Distal (at wrist): diameter is 1.1 mm, depth is 2.5 mm Median cubital vein - Mid: Diameter is 3.7 mm, depth is 3.8 mm. VENOUS DOPPLER AND COMPRESSION Internal jugular vein Doppler: normal flow. Compression: normal. Subclavian vein Doppler: normal flow. Compression: normal. Axillary vein Doppler: normal flow. Compression: normal. Brachial vein Doppler: normal flow. Compression: normal. Basilic vein Doppler: normal flow. Compression: normal. Cephalic vein Doppler: normal flow. Compression: normal. IMPRESSION No significant discrepancy in brachial systolic blood pressure measurements from right to left sides. RIGHT No evidence for arterial inflow stenosis. Brachial artery bifurcation is below the elbow crease. Clinical correlation is advised; deep vein thrombosis of indeterminate age in the internal jugular vein at proximal . Normal color and pulsed Doppler signals noted; however, unable to compress the subclavian vein due to dialysis catheter. Patent axillary vein measuring 0.8 cm . Cephalic vein: Patent with measurements as indicated above. Branches noted at the distal forearm. Basilic vein: Patent with measurements as indicated above. LEFT No evidence for arterial inflow stenosis. Brachial artery bifurcation is below the elbow crease. Negative for acute deep vein thrombosis. Patent axi (more content not included)... Normal [facility] Basic Metabolic Profile (BMP )on 02-04-2025 BUN/CRE 9.7 RATIO Low 10-20 [facility] Comment on above: Order Comment: 412.2 Performed By: #### L 100.0500, L500.2500 #### [facility] [address] [place], [address] Calcium [Mass/Vol] 9.3 mg/dL Normal 7.6-11.0 [facility] Comment on above: Order Comment: 412.2 Performed By: #### L 100.0500, L500.2500 #### [facility] [address] [place], [address] Chloride [Moles/Vol] 100 mmol/L Normal 98-108 [facility] Comment on above: Order Comment: 412.2 Performed By: #### L 100.0500, L500.2500 #### [facility] [address] [place], [address] CO2 [Moles/Vol] 24.6 mmol/L Normal 21.0-32.0 [facility] Comment on above: Order Comment: 412.2 Performed By: #### L 100.0500, L500.2500 #### [facility] [address] [place], [address] Creatinine [Mass/Vol] 5.18 mg/dL High 0.70-1.20 [facility] Comment on above: Order Comment: 412.2 Performed By: #### L 100.0500, L500.2500 #### [facility] [address] [place], [address] GAP 14 Normal 5-15 [facility] Comment on above: Order Comment: 412.2 Performed By: #### L 100.0500, L500.2500 #### [facility] [address] [place], [address] GFR/1.73 sq M.predicted among non-blacks MDRD (S/P/Bld) [Vol rate/Area] 12 mL/min/{1.73_m2} Low >60 [facility] Comment on above: Order Comment: 412.2 Result Comment: mL/m in/1.73m2 CKD-EPI Creatinine Equation (2020) Performed By: #### L 100.0500, L500.2500 #### [facility] [address] [place], [address] Glucose [Mass/Vol] 121 mg/dL High 70-99 [facility] Comment on above: Order Comment: 412.2 Performed By: #### L 100.0500, L500.2500 #### [facility] [address] [place], [address] Potassium [Moles/Vol] 5.0 mmol/L Normal 3.3-5.1 [facility] Comment on above: Order Comment: 412.2 Result Comment: Hemo lysis present, Results??could be affected. ?? Performed By: #### L 100.0500, L500.2500 #### [facility] [address] [place], [address] Sodium [Moles/Vol] 138 mmol/L Normal 133-145 [facility] Comment on above: Order Comment: 412.2 Performed By: #### L 100.0500, L500.2500 #### [facility] [address] [place], [address] Urea nitrogen [Mass/Vol] 50 mg/dL High 4-19 [facility] Comment on above: Order Comment: 412.2 Performed By: #### L 100.0500, L500.2500 #### [facility] [address] [place], [address] CBC-Complete Blood Cnt No Di ffon 02-04-2025 Erythrocyte distribution width (RBC) [Ratio] 12.8 % Normal 11.6-14.6 [facility] Comment on above: Order Comment: 412.2 Performed By: #### L 100.0500, L500.2500 #### [facility] [address] [place], [address] Hematocrit (Bld) [Volume fraction] 31.6 % Low 40-54 [facility] Comment on above: Order Comment: 412.2 Performed By: #### L 100.0500, L500.2500 #### [facility] [address] [place], [address] Hemoglobin (Bld) [Mass/Vol] 10.3 g/dL Low 13.0-16.5 [facility] Comment on above: Order Comment: 412.2 Performed By: #### L 100.0500, L500.2500 #### [facility] [address] [place], [address] MCH (RBC) [Entitic mass] 30.1 pg Normal 27.0-32.0 [facility] Comment on above: Order Comment: 412.2 Performed By: #### L 100.0500, L500.2500 #### [facility] [address] [place], [address] MCHC (RBC) [Mass/Vol] 32.6 g/dL Normal 32-36 [facility] Comment on above: Order Comment: 412.2 Performed By: #### L 100.0500, L500.2500 #### [facility] [address] [place], [address] MCV (RBC) [Entitic vol] 92.4 fL Normal 80-94 [facility] Comment on above: Order Comment: 412.2 Performed By: #### L 100.0500, L500.2500 #### [facility] [address] [place], [address] Platelet mean volume (Bld) [Entitic vol] 9.3 fL Normal 6.2-12.0 [facility] Comment on above: Order Comment: 412.2 Performed By: #### L 100.0500, L500.2500 #### [facility] [address] [place], [address] Platelets (Bld) [#/Vol] 250 10*3/uL Normal 150-450 [facility] Comment on above: Order Comment: 412.2 Performed By: #### L 100.0500, L500.2500 #### [facility] [address] [place], [address] RBC (Bld) [#/Vol] 3.42 10*6/uL Low 4.6-6.2 [facility] Comment on above: Order Comment: 412.2 Performed By: #### L 100.0500, L500.2500 #### [facility] [address] [place], [address] RDW SD 43.2 fl Normal 35.1-43.9 [facility] Comment on above: Order Comment: 412.2 Performed By: #### L 100.0500, L500.2500 #### [facility] [address] [place], [address] WBC (Bld) [#/Vol] 5.6 10*3/uL Normal 4.4-11.0 [facility] Comment on above: Order Comment: 412.2 Performed By: #### L 100.0500, L500.2500 #### [facility] [address] [place], [address] Basic Metabolic Profile (BMP )on 01-15-2024 BUN/CRE 9.1 RATIO Low 10-20 [facility] Comment on above: Order Comment: 412.2 Performed By: #### L 500.2500, L100.0500 #### [facility] [address] [place], [address] Calcium [Mass/Vol] 8.9 mg/dL Normal 7.6-11.0 [facility] Comment on above: Order Comment: 412.2 Performed By: #### L 500.2500, L100.0500 #### [facility] [address] [place], [address] Chloride [Moles/Vol] 100 mmol/L Normal 98-108 [facility] Comment on above: Order Comment: 412.2 Performed By: #### L 500.2500, L100.0500 #### [facility] [address] [place], [address] CO2 [Moles/Vol] 27.9 mmol/L Normal 21.0-32.0 [facility] Comment on above: Order Comment: 412.2 Performed By: #### L 500.2500, L100.0500 #### [facility] [address] [place], [address] Creatinine [Mass/Vol] 5.60 mg/dL High 0.70-1.20 [facility] Comment on above: Order Comment: 412.2 Performed By: #### L 500.2500, L100.0500 #### [facility] [address] [place], [address] GAP 12 Normal 5-15 [facility] Comment on above: Order Comment: 412.2 Performed By: #### L 500.2500, L100.0500 #### [facility] [address] [place], [address] GFR/1.73 sq M.predicted among non-blacks MDRD (S/P/Bld) [Vol rate/Area] 11 mL/min/{1.73_m2} Low >60 [facility] Comment on above: Order Comment: 412.2 Result Comment: mL/m in/1.73m2 CKD-EPI Creatinine Equation (2020) Performed By: #### L 500.2500, L100.0500 #### [facility] [address] [place], [address] Glucose [Mass/Vol] 217 mg/dL High 70-99 [facility] Comment on above: Order Comment: 412.2 Performed By: #### L 500.2500, L100.0500 #### [facility] [address] [place], [address] Potassium [Moles/Vol] 4.7 mmol/L Normal 3.3-5.1 [facility] Comment on above: Order Comment: 412.2 Performed By: #### L 500.2500, L100.0500 #### [facility] [address] [place], [address] Sodium [Moles/Vol] 140 mmol/L Normal 133-145 [facility] Comment on above: Order Comment: 412.2 Performed By: #### L 500.2500, L100.0500 #### [facility] [address] [place], [address] Urea nitrogen [Mass/Vol] 51 mg/dL High 4-19 [facility] Comment on above: Order Comment: 412.2 Performed By: #### L 500.2500, L100.0500 #### [facility] [address] [place], [address] CBC-Complete Blood Cnt No Di ffon 01-15-2025 Erythrocyte distribution width (RBC) [Ratio] 13.1 % Normal 11.6-14.6 [facility] Comment on above: Order Comment: 412.2 Performed By: #### L 500.2500, L100.0500 #### [facility] [address] [place], [address] Hematocrit (Bld) [Volume fraction] 26.2 % Low 40-54 [facility] Comment on above: Order Comment: 412.2 Performed By: #### L 500.2500, L100.0500 #### [facility] [address] [place], [address] Hemoglobin (Bld) [Mass/Vol] 8.3 g/dL Low 13.0-16.5 [facility] Comment on above: Order Comment: 412.2 Performed By: #### L 500.2500, L100.0500 #### [facility] [address] [place], [address] MCH (RBC) [Entitic mass] 29.7 pg Normal 27.0-32.0 [facility] Comment on above: Order Comment: 412.2 Performed By: #### L 500.2500, L100.0500 #### [facility] [address] [place], [address] MCHC (RBC) [Mass/Vol] 31.7 g/dL Low 32-36 [facility] Comment on above: Order Comment: 412.2 Performed By: #### L 500.2500, L100.0500 #### [facility] [address] [place], [address] MCV (RBC) [Entitic vol] 93.9 fL Normal 80-94 [facility] Comment on above: Order Comment: 412.2 Performed By: #### L 500.2500, L100.0500 #### [facility] [address] [place], [address] Platelet mean volume (Bld) [Entitic vol] 9.7 fL Normal 6.2-12.0 [facility] Comment on above: Order Comment: 412.2 Performed By: #### L 500.2500, L100.0500 #### [facility] [address] [place], [address] Platelets (Bld) [#/Vol] 225 10*3/uL Normal 150-450 [facility] Comment on above: Order Comment: 412.2 Performed By: #### L 500.2500, L100.0500 #### [facility] [address] [place], [address] RBC (Bld) [#/Vol] 2.79 10*6/uL Low 4.6-6.2 [facility] Comment on above: Order Comment: 412.2 Performed By: #### L 500.2500, L100.0500 #### [facility] [address] [place], [address] RDW SD 45.1 fl High 35.1-43.9 [facility] Comment on above: Order Comment: 412.2 Performed By: #### L 500.2500, L100.0500 #### [facility] [address] [place], [address] WBC (Bld) [#/Vol] 7.2 10*3/uL Normal 4.4-11.0 [facility] Comment on above: Order Comment: 412.2 Performed By: #### L 500.2500, L100.0500 #### [facility] [address] [place], [address] [facility] Telephone ([facility]) -- JOSÉ MANUEL ASHTON ([id number]) 1960 [facility] Date Time Provider Department 12/24/24 NUSRAT ALATORRE VASSMD During your visit today, we recorded the following information about you: Amina Smiley 12/24/2024 9:57 AM Signed Patient's chemical strength tester, Dr. Dudley, is referring patient to Dr. Alatorre for fistula placement. Patient's care facility is going to reach out to schedule appointment. Dr. Dudley's office is requesting information from patient's future appointments with Dr. Alatorre to be faxed to them at: [phone] attn: dialysis. Thank you Allergies As of [...] AUTOSHIELD DUO PEN NEEDLE) 30 gauge x 3/16 ndle 1 Applicator four times daily. Meds Comments as of 11/15/2023: SEE EMAR FOR MEDICATIONS TAKEN LAST 04/19/21 07/31/20 The medications are managed by this patient by: PATIENT Nusrat Lewis, OA 11/08/[address] Scott: Patient to continue to use the SSI only, no regular scheduled Insulin dosing at this time. Patient's sister has been notified and verbalizes understanding. Richard Hinds RN Problem List As Of [...] [N17.9] 03/30/2022 06/11/2023 Nausea and vomiting [R11.2] more content not included)... Normal [facility] [id number] 11-29-2024 [id number] [facility] [place] [address] [phone] Returning to Facility Normal [facility] [phone] Next Site of Care Admission Date: 11/25/2024 12:06 PM Patient Name: JOSÉ MANUEL ASHTON Location: [address]/[facility] [id number] A Date of : 1960 -- Placement Information -- Referral Type:Jail/SNF - Return Referral ID:[id number] Provider Name:[facility] Address 1:[address] [place] [address] Address 2: City:[place] Selection Factors:Returning to Facility State:[facility] [phone] Confirmed pickup corrina e of 330PM by transport [facility] at phone number [phone]. Location of facility drop off is RETURN BACK TO [facility]. Facility notified via [employer], [facility] notified on secure chat. [facility] [phone] Transport requested 330 in [facility]. Awaiting time confirmation. [facility] [phone] Discharge med list transmitted to RETURN BACK TO [facility] via [facility] per TCC request. Normal [facility] [phone] Sent updated notes t o [facility] [place] via [employer] per [facility] request. Await review and response regarding ability to accept. TCC notified. Normal [facility] CBC W Auto Differential pane l (Bld)on 11-29-2024 Basophils (Bld) [#/Vol] 0 10*3/uL 0.0 - 0.2 10*3/uL [facility] Basophils/100 WBC (Bld) 0.4 % 0.0 - 2.0 % [facility] Eosinophils (Bld) [#/Vol] 0.4 10*3/uL 0.0 - 0.5 10*3/uL [facility] Eosinophils/100 WBC (Bld) 7.2 % High 0.0 - 6.0 % [facility] Erythrocyte distribution width (RBC) [Ratio] 12.8 % 11.5 - 15.0 % [facility] Hematocrit (Bld) [Volume fraction] 26.1 % Low 40.0 - 52.0 % [facility] Hemoglobin (Bld) [Mass/Vol] 8.2 g/dL Low 13.0 - 18.0 g/dL [facility] [employer] Immature granulocytes (Bld) [#/Vol] 0.1 10*3/uL High NINF - 0.1 10*3/uL [facility] [employer] Immature granulocytes/100 WBC (Bld) 1.7 % 0.0 - 2.0 % [facility] Interpretation and review of laboratory results Abnormal [facility] Lymphocytes (Bld) [#/Vol] 1.5 10*3/uL 1.0 - 4.3 10*3/uL [facility] Lymphocytes/100 WBC (Bld) 28.5 % 15.0 - 45.0 % [facility] MCH (RBC) [Entitic mass] 29.4 pg 26.0 - 34.0 pg [facility] MCHC (RBC) [Mass/Vol] 31.4 % 30.5 - 36.0 % [facility] MCV (RBC) [Entitic vol] 93.5 fL 77.0 - 99.0 fL [facility] Monocytes (Bld) [#/Vol] 0.6 10*3/uL 0.0 - 0.9 10*3/uL [facility] Monocytes/100 WBC (Bld) 11.8 % 5.0 - 13.0 % [facility] Neutrophils (Bld) [#/Vol] 2.6 10*3/uL 1.8 - 7.5 10*3/uL [facility] Neutrophils/100 WBC (Bld) 50.4 % 38.0 - 82.0 % [facility] Nucleated RBC/100 WBC (Bld) [Ratio] 0 % [facility] Platelet mean volume (Bld) [Entitic vol] 8.7 fL Low 9.0 - 12.7 fL [facility] Platelets (Bld) [#/Vol] 222 10*3/uL 140 - 440 10*3/uL [facility] RBC (Bld) [#/Vol] 2.79 10*6/uL Low 4.40 - 5.9 0 10*6/uL [facility] WBC (Bld) [#/Vol] 5.2 10*3/uL 3.6 - 10.7 10*3/uL [facility] CBC WITH AUTO DIFFERENTIALon 11-29-2024 Basophils (Bld) [#/Vol] 0.0 10*3/uL Normal 0.0-0.2 [facility] Comment on above: Performed By: #### L [id number] ####Ceramic Mold Designer: JAQUELIN MO ([id number])[facility] ([facility])[address] [place] [address] Basophils/100 WBC (Bld) 0.4 % Normal 0.0-2.0 [facility] Comment on above: Performed By: #### L [id number] ####Ceramic Mold Designer: JAQUELIN MO ([id number])[facility] ([facility])[address] Eosinophils (Bld) [#/Vol] 0.4 10*3/uL Normal 0.0-0.5 [facility] Comment on above: Performed By: #### L [id number] ####Ceramic Mold Designer: JAQUELIN MO ([id number])[facility] ([facility])[address] Eosinophils/100 WBC (Bld) 7.2 % High 0.0-6.0 [facility] Comment on above: Performed By: #### L [id number] ####Ceramic Mold Designer: JAQUELIN MO ([id number])[facility] ([facility])[address] Erythrocyte distribution width (RBC) [Ratio] 12.8 % Normal 11.5-15.0 [facility] Comment on above: Performed By: #### L [id number] ####Ceramic Mold Designer: JAQUELIN MO ([id number])[facility] ([facility])[address] Hematocrit (Bld) [Volume fraction] 26.1 % Low 40.0-52.0 [facility] Comment on above: Performed By: #### L [id number] ####Ceramic Mold Designer: JAQUELIN MO ([id number])[facility] [place] ([facility])[address] Hemoglobin (Bld) [Mass/Vol] 8.2 g/dL Low 13.0-18.0 [facility] Comment on above: Performed By: #### L [id number] ####Ceramic Mold Designer: JAQUELIN MO ([id number])[facility] ([facility])[address] IMMATURE GRANS % 1.7 % Normal 0.0-2.0 [facility] Comment on above: Performed By: #### L [id number] ####Ceramic Mold Designer: JAQUELIN MO ([id number])[facility] [place] ([facility])[address] IMMATURE GRANS ABSOLUTE 0.1 10*3/uL High <0.1 [facility] Comment on above: Performed By: #### L [id number] ####Ceramic Mold Designer: JAQUELIN MO ([id number])[facility] ([facility])[address] Lymphocytes (Bld) [#/Vol] 1.5 10*3/uL Normal 1.0-4.3 [facility] Comment on above: Performed By: #### L [id number] ####Ceramic Mold Designer: JAQUELIN RASCONYOEL ([id number])[facility] [place] ([facility])[address] Lymphocytes/100 WBC (Bld) 28.5 % Normal 15.0-45.0 [facility] Comment on above: Performed By: #### L [id number] ####Ceramic Mold Designer: JAQUELIN MO ([id number])[facility] [place] ([facility])[address] MCH (RBC) [Entitic mass] 29.4 pg Normal 26.0-34.0 [facility] Comment on above: Performed By: #### L [id number] ####Ceramic Mold Designer: JAQUELIN MO ([id number])[facility] [place] ([facility])[address] MCHC 31.4 % Normal 30.5-36.0 [facility] Comment on above: Performed By: #### L [id number] ####Ceramic Mold Designer: JAQUELIN MO ([id number])[facility] [place] ([facility])[address] [place] [address] MCV (RBC) [Entitic vol] 93.5 fL Normal 77.0-99.0 [facility] Comment on above: Performed By: #### L [id number] ####Ceramic Mold Designer: JAQUELIN MO ([id number])[facility] [place] ([facility])[address] Monocytes (Bld) [#/Vol] 0.6 10*3/uL Normal 0.0-0.9 [facility] Comment on above: Performed By: #### L [id number] ####Ceramic Mold Designer: JAQUELIN MO ([id number])[facility] [place] ([facility])[address] Monocytes/100 WBC (Bld) 11.8 % Normal 5.0-13.0 [facility] Comment on above: Performed By: #### L [id number] ####Ceramic Mold Designer: JAQUELIN MO ([id number])[facility] ([facility])[address] NEUTROPHILS ABSOLUTE 2.6 10*3/uL Normal 1.8-7.5 [facility] Comment on above: Performed By: #### L [id number] ####Ceramic Mold Designer: JAQUELIN MO ([id number])[facility] [place] ([facility])[address] Neutrophils/100 WBC (Bld) 50.4 % Normal 38.0-82.0 [facility] Comment on above: Performed By: #### L [id number] ####Ceramic Mold Designer: JAQUELIN MO ([id number])[facility] [place] ([facility])[address] NRBC 0.0 /100 WBCs Normal 0.0-2.0 [facility] Comment on above: Performed By: #### L [id number] ####Ceramic Mold Designer: JAQUELIN MO ([id number])[facility] [place] ([facility])[address] Platelet mean volume (Bld) [Entitic vol] 8.7 fL Low 9.0-12.7 [facility] Comment on above: Performed By: #### L [id number] ####Ceramic Mold Designer: JAQUELIN MO ([id number])[facility] [place] ([facility])[address] [place] [address] [place] Platelets (Bld) [#/Vol] 222 10*3/uL Normal 140-440 [facility] Comment on above: Performed By: #### L [id number] ####Ceramic Mold Designer: JAQUELIN MO ([id number])[facility] [place] ([facility])[address] [place] [address] [place] RBC (Bld) [#/Vol] 2.79 10*6/uL Low 4.40-5.90 [facility] Comment on above: Performed By: #### L [id number] ####Ceramic Mold Designer: JAQUELIN OM ([id number])[facility] [place] ([facility])[address] WBC (Bld) [#/Vol] 5.2 10*3/uL Normal 3.6-10.7 [facility] Comment on above: Performed By: #### L [id number] ####Ceramic Mold Designer: JAQUELIN MO ([id number])[facility] [place] ([facility])[address] COMPREHENSIVE METABOLIC PANE Tommie 11-29-2024 Albumin [Mass/Vol] 2.7 g/dL Low 3.4-4.8 [facility] Comment on above: Performed By: #### L [id number] ####Ceramic Mold Designer: JAQUELIN MO ([id number])[facility] [place] ([facility])[address] ALP [Catalytic activity/Vol] 109 U/L Normal 40-150 [facility] Comment on above: Performed By: #### L AB17 ####Ceramic Mold Designer: JAQUELIN MO ([id number])[facility] [place] ([facility])[address] ALT [Catalytic activity/Vol] 36 U/L Normal <40 [facility] Comment on above: Performed By: #### L AB17 ####Ceramic Mold Designer: JAQUELIN MO ([id number])[facility] [place] ([facility])[address] Anion gap [Moles/Vol] 9 mmol/L Normal 3-13 [facility] Comment on above: Performed By: #### L AB17 ####Ceramic Mold Designer: JAQUELIN MO ([id number])[facility] [place] ([facility])[address] AST [Catalytic activity/Vol] 22 U/L Normal <34 [facility] Comment on above: Performed By: #### L AB17 ####Ceramic Mold Designer: JAQUELIN MO ([id number])[facility] [place] ([facility])[address] Bilirubin [Mass/Vol] 0.3 mg/dL Normal <1.2 [facility] Comment on above: Performed By: #### L AB17 ####Ceramic Mold Designer: JAQUELIN MO ([id number])[facility] [place] ([facility])[address] Calcium [Mass/Vol] 8.9 mg/dL Normal 8.8-10.0 [facility] Comment on above: Performed By: #### L AB17 ####Ceramic Mold Designer: JAQUELIN MO ([id number])[facility] ([facility])[address] Chloride [Moles/Vol] 109 mmol/L High 98-107 [facility] Comment on above: Performed By: #### L AB17 ####Ceramic Mold Designer: JAQUELIN MO ([id number])[facility] ([facility])[address] CO2 [Moles/Vol] 26 mmol/L Normal 23-31 [facility] Comment on above: Performed By: #### L AB17 ####Ceramic Mold Designer: JAQUELIN MO ([id number])[facility] ([facility])[address] [place] [address] [place] Creatinine [Mass/Vol] 5.79 mg/dL High 0.72-1.25 [facility] Comment on above: Performed By: #### L AB17 ####Ceramic Mold Designer: JAQUELIN MO ([id number])[facility] ([facility])[address] GLOMERULAR FILTRATION RATE ML/MIN/1.73 SQ M.PREDICTED 10.2 mL/min/1.73m*2 Low >60.0 [facility] Comment on above: Result Comment: Calc ulation based on the Chronic Kidney Disease Epidemiology Collaboration (CKD-EPI) equation refit without adjustment for race Performed By: #### L AB17 ####Ceramic Mold Designer: JAQUELIN MO ([id number])[facility] ([facility])[address] Glucose [Mass/Vol] 166 mg/dL High 82-115 [facility] Comment on above: Performed By: #### L AB17 ####Ceramic Mold Designer: JAQUELIN MO ([id number])[facility] ([facility])[address] Potassium [Moles/Vol] 5.1 mmol/L Normal 3.5-5.1 [facility] Comment on above: Result Comment: [facility] potassium values may be up to 0.5 mmol/L lower than serum values. Performed By: #### L AB17 ####Ceramic Mold Designer: JAQUELIN MO ([id number])[facility] ([facility])[address] Protein [Mass/Vol] 5.9 g/dL Low 6.4-8.3 [facility] Comment on above: Performed By: #### L [id number] ####Ceramic Mold Designer: JAQUELIN MO ([id number])[facility] ([facility])[address] Sodium [Moles/Vol] 144 mmol/L Normal 136-145 [facility] Comment on above: Performed By: #### L [id number] ####Ceramic Mold Designer: JAQUELIN MO ([id number])[facility] ([facility])[address] Urea nitrogen [Mass/Vol] 58 mg/dL High 9-23 [facility] Comment on above: Performed By: #### L AB17 ####Ceramic Mold Designer: JAQUELIN MO ([id number])[facility] ([facility])[address] Comprehensive metabolic 1998 panelon 08-29-2025 Albumin [Mass/Vol] 2.7 g/dL Low 3.4 - 4.8 g/dL [facility] ALP [Catalytic activity/Vol] 109 U/L 40 - 150 U/L [facility] ALT [Catalytic activity/Vol] 36 U/L NINF - 40 U/L [facility] Anion gap [Moles/Vol] 9 mmol/L 3 - 13 mmol/L [facility] AST [Catalytic activity/Vol] 22 U/L NINF - 34 U/L [facility] Bilirubin [Mass/Vol] 0.3 mg/dL NINF - 1.2 mg/dL [facility] Calcium [Mass/Vol] 8.9 mg/dL 8.8 - 10. 0 mg/dL [facility] Chloride [Moles/Vol] 109 mmol/L High 98 - 10 7 mmol/L [facility] CO2 [Moles/Vol] 26 mmol/L 23 - 31 mmol/L [facility] Creatinine [Mass/Vol] 5.79 mg/dL High 0.72 - 1.25 mg/dL [facility] GFR/1.73 sq M.predicted (S/P/Bld) [Vol rate/Area] 10.2 mL/min Low - PINF [facility] Comment on above: Calculation based on the Chronic Kidney Disease Epidemiology Collaboration (CKD-EPI) equation refit without adjustment for race Glucose [Mass/Vol] 166 mg/dL High 82 - 115 mg/dL [facility] Interpretation and review of laboratory results Abnormal [facility] Potassium [Moles/Vol] 5.1 mmol/L 3.5 - 5.1 mmol/L [facility] Comment on above: Plasma potassium reji ues may be up to 0.5 mmol/L lower than serum values. Protein [Mass/Vol] 5.9 g/dL Low 6.4 - 8.3 g/dL [facility] Sodium [Moles/Vol] 144 mmol/L 136 - 145 mmol/L [facility] Urea nitrogen [Mass/Vol] 58 mg/dL High 9 - 23 mg/dL [facility] Laboratory - Chemistry and C hemistry - challengeon 11-29-2024 Glucose [Mass/Vol] 196 mg/dL High 70 - 100 mg/dL [facility] Glucose [Mass/Vol] 140 mg/dL High 70 - 100 mg/dL [facility] No Panel Informationon 11-29 Interpretation and review of laboratory results Abnormal [facility] Performed by: Heatherantonette Daly, [address] [facility] [address] CLIA ID: [id number] [facility] Interpretation and review of laboratory results Abnormal [facility] Performed by: Heatherantonette Daly, [address] [facility] [address] CLIA ID: [id number] [facility] Nursing Noteon 11-29-2024 Nursing Note 2.4L removed with tx , UF goal adjusted for BP Tolerated well Patient Name: José Manuel Ashton Patient : 1960 Acct: [id number] Date of Admission: 11/25/2024 Room[facility]Bed: [facility] A Code Status: Full Code Allergies: Allergies[1] [...] Regular Other (Comment) None (Room air) Diminished [place] Warm;Dry Good Soft;Rounded Active Generalized Non-pitting 11/29/24 1346 Alert (0) x4 Regular Other (Comment) None (Room air) -- [place] Warm;Dry Good Soft;Rounded Active Generalized Non-pitting Labs [...] - Before each treatment: Dialysis Machine No.: [id number] RO Machine Number: [id number] Dialyzer Lot No.: [id number] Tubing Lot Number: [id number] [employer] Secure: Yes Venous Parameters Set: Yes Arterial Parameters Set: Yes NS Bag: Yes Saline Line Double Clamped: Yes Dialyzer: Nipro Prime Volume (mL): 200 mL RO Machine Number: [id number] RO Machine Log Sheet Completed: Yes Machine Alarm Self Test: Completed, Passed (11/29/24 0932) Air Foam Detector: Tested, Proper Function, pH Reading Extracorporeal Circuit Tested for Integrity: Yes Machine Conductivity: 13.4 Manual Conductivity: 13.6 Manual Ph: 7.2 Bleach Test (Neg): Yes Bath Temperature: 36 ?C (96.8 ?F) Conductivity Meter Serial #: [id number] Machine Functioning Alarm Free? Yes Dialysis Bath: K+ (Potassium): 2 Ca+ (Calcium): 2.5 Na+ (Sodium): 137 HCO3 (Bicarb): 35 Bicarbonate Concentrate Lot No.: [id number] Acid Concentrate Lot No.: [id number] Chlorine Testing - Before each treatment and every 4 hours: Time On: 0932 Time Off: 1332 Treatment Goal: 3 Weight Height: 177.8 cm (5' 10) (11/28/24 1358) Weight: 120 kg (265 lb) (11/29/24 0300) BMI (Calculated): 38.02 (11/29/24299) 1st check: less than 0.1 ppm at: [...] of acute distres (more content not included)... Normal [facility] Progress Noteon 11-29-2024 Progress Note Department of Electronic Controls Repairer Supervisor al Medicine Division of Endocrinology, Diabetes, & Metabolism Endocrinology Note Patient Name: José Manuel Ashton : 1960 AGE: 63 y.o. Room/Bed: [facility] A Admission Date: 11/25/2024 Visit Date: 11/29/2024 Reason for Endocrine Consult: DM/Pt on U300 insulin Provider/Team Requesting Consult: Dr. Hills PCP: Brittaney Garcia MD Outpt [employer] Coach: [facility] ASSESSMENT: Type 2 diabetes mellitus with hyperglycemia, with longwall foreman insulin use Lethargy and chills HTN DM2 [...] low dose sliding scale Outpt Follow Up-- [facility] Endocrinology SUBJECTIVE/HPI: CHIEF COMPLAINT: Chief Complaint Patient presents with Altered Mental Status Pt presents to ED via EMS from [facility] for responding slowly and indicates he is cold. José Manuel Ashton is a 63 yo male who presented to ED from [facility] with Tremor, chills and delayed [...] Concerned he will receive pain meds at [facility] BG controlled no change in doses 11/28/2024 [...] in bed [facility] not sure of insulin doses at [facility] - Does not give his own injections. Reports blood sugars are checked before meals but not sure what blood sugar levels are. Carb controlled diet Patient reports tremors, chills Feels unsteady on feet. PT was stopped at [facility] per patient. Patient on IV vanc Glucose [...] Daily PRN cyclob (more content not included)... [facility] Progress Note OCCUPATIONAL THERAPY [facility]'s Name/MRN: José Manuel Ashton ([id number]) Date: 11/29/2024 Pt intended for OT treatment this date. Upon arrival, pt completing dialysis at this time and unavailable for therapy treatment. Will continue to follow and attempt as appropriate this admission. Emerson Mendoza, OT [facility] [id number] 11-28-2024 [id number] Sent updated notes t o return back to [facility] [place] via [employer] per TCC request. Await review and response regarding ability to accept. TCC notified. [facility] CBC W Auto Differential pane l (Bld)on 11-28-2024 Basophils (Bld) [#/Vol] 0 10*3/uL 0.0 - 0.2 10*3/uL [facility] Basophils/100 WBC (Bld) 0.4 % 0.0 - 2.0 % [facility] Eosinophils (Bld) [#/Vol] 0.3 10*3/uL 0.0 - 0.5 10*3/uL [facility] Eosinophils/100 WBC (Bld) 5.9 % 0.0 - 6.0 % [facility] Erythrocyte distribution width (RBC) [Ratio] 12.8 % 11.5 - 15.0 % [facility] Hematocrit (Bld) [Volume fraction] 26.4 % Low 40.0 - 52.0 % [facility] Hemoglobin (Bld) [Mass/Vol] 8.5 g/dL Low 13.0 - 18.0 g/dL [facility] Immature granulocytes (Bld) [#/Vol] 0.1 10*3/uL High NINF - 0.1 10*3/uL [facility] Immature granulocytes/100 WBC (Bld) 1.4 % 0.0 - 2.0 % [facility] Interpretation and review of laboratory results Abnormal [facility] Lymphocytes (Bld) [#/Vol] 1.3 10*3/uL 1.0 - 4.3 10*3/uL [facility] Lymphocytes/100 WBC (Bld) 25.9 % 15.0 - 45.0 % [facility] MCH (RBC) [Entitic mass] 29.5 pg 26.0 - 34.0 pg [facility] MCHC (RBC) [Mass/Vol] 32.2 % 30.5 - 36.0 % [facility] MCV (RBC) [Entitic vol] 91.7 fL 77.0 - 99.0 fL [facility] Monocytes (Bld) [#/Vol] 0.5 10*3/uL 0.0 - 0.9 10*3/uL [facility] Monocytes/100 WBC (Bld) 10.2 % 5.0 - 13.0 % [facility] Neutrophils (Bld) [#/Vol] 2.9 10*3/uL 1.8 - 7.5 10*3/uL [facility] Neutrophils/100 WBC (Bld) 56.2 % 38.0 - 82.0 % [facility] Nucleated RBC/100 WBC (Bld) [Ratio] 0 % [facility] Platelet mean volume (Bld) [Entitic vol] 8.8 fL Low 9.0 - 12.7 fL [facility] Platelets (Bld) [#/Vol] 227 10*3/uL 140 - 440 10*3/uL [facility] RBC (Bld) [#/Vol] 2.88 10*6/uL Low 4.40 - 5.9 0 10*6/uL [facility] WBC (Bld) [#/Vol] 5.1 10*3/uL 3.6 - 10.7 10*3/uL [facility] CBC WITH AUTO DIFFERENTIALon 11-28-2024 Basophils (Bld) [#/Vol] 0.0 10*3/uL Normal 0.0-0.2 [facility] Comment on above: Performed By: #### L [id number] ####Ceramic Mold Designer: JAQUELIN MO ([id number])[facility] ([facility])[address] Basophils/100 WBC (Bld) 0.4 % Normal 0.0-2.0 [facility] Comment on above: Performed By: #### L [id number] ####Ceramic Mold Designer: JAQUELIN MO ([id number])[facility] ([facility])[address] Eosinophils (Bld) [#/Vol] 0.3 10*3/uL Normal 0.0-0.5 [facility] Comment on above: Performed By: #### L [id number] ####Ceramic Mold Designer: JAQUELIN MO ([id number])[facility] [place] ([facility])[address] Eosinophils/100 WBC (Bld) 5.9 % Normal 0.0-6.0 [facility] Comment on above: Performed By: #### L [id number] ####Ceramic Mold Designer: JAQUELIN MO ([id number])[facility] [place] ([facility])[address] Erythrocyte distribution width (RBC) [Ratio] 12.8 % Normal 11.5-15.0 [facility] Comment on above: Performed By: #### L [id number] ####Ceramic Mold Designer: JAQUELIN MO ([id number])[facility] [place] ([facility])[address] [place] [address] Hematocrit (Bld) [Volume fraction] 26.4 % Low 40.0-52.0 [facility] Comment on above: Performed By: #### L [id number] ####Ceramic Mold Designer: JAQUELIN MO ([id number])[facility] [place] ([facility])[address] Hemoglobin (Bld) [Mass/Vol] 8.5 g/dL Low 13.0-18.0 [facility] Comment on above: Performed By: #### L [id number] ####Ceramic Mold Designer: JAQUELIN MO ([id number])[facility] [place] (SB[facility])[address] IMMATURE GRANS % 1.4 % Normal 0.0-2.0 [facility] Comment on above: Performed By: #### L [id number] ####Ceramic Mold Designer: JAQUELIN MO ([id number])[facility] [place] (SB[facility])[address] IMMATURE GRANS ABSOLUTE 0.1 10*3/uL High <0.1 [facility] Comment on above: Performed By: #### L [id number] ####Ceramic Mold Designer: JAQUELIN MO ([id number])[facility] ([facility])[address] Lymphocytes (Bld) [#/Vol] 1.3 10*3/uL Normal 1.0-4.3 [facility] Comment on above: Performed By: #### L [id number] ####Ceramic Mold Designer: JAQUELIN MO ([id number])[facility] (SB[facility])[address] Lymphocytes/100 WBC (Bld) 25.9 % Normal 15.0-45.0 [facility] Comment on above: Performed By: #### L [id number] ####Ceramic Mold Designer: JAQUELIN MO ([id number])[facility] [place] (SB[facility])[address] MCH (RBC) [Entitic mass] 29.5 pg Normal 26.0-34.0 [facility] Comment on above: Performed By: #### L [id number] ####Ceramic Mold Designer: JAQUELIN MO ([id number])[facility] ([facility])[address] MCHC 32.2 % Normal 30.5-36.0 [facility] Comment on above: Performed By: #### L [id number] ####Ceramic Mold Designer: JAQUELIN MO ([id number])[facility] (SB[facility])[address] [place] [address] [place] MCV (RBC) [Entitic vol] 91.7 fL Normal 77.0-99.0 [facility] Comment on above: Performed By: #### L [id number] ####Ceramic Mold Designer: JAQUELIN BROWNOliviaYOEL ([id number])[facility] [place] (SBHLAB)[address] Monocytes (Bld) [#/Vol] 0.5 10*3/uL Normal 0.0-0.9 [facility] Comment on above: Performed By: #### L [id number] ####Ceramic Mold Designer: JAQUELIN BROWNBALAJI ([id number])[facility] [place] (SB[facility])[address] Monocytes/100 WBC (Bld) 10.2 % Normal 5.0-13.0 [facility] Comment on above: Performed By: #### L [id number] ####Ceramic Mold Designer: JAQUELIN RASCONYOEL ([id number])[facility] [place] (SB[facility])[address] NEUTROPHILS ABSOLUTE 2.9 10*3/uL Normal 1.8-7.5 [facility] Comment on above: Performed By: #### L [id number] ####Ceramic Mold Designer: JAQUELIN RASCONYOEL ([id number])[facility] [place] (SBHLAB)[address] [place] [address] Neutrophils/100 WBC (Bld) 56.2 % Normal 38.0-82.0 [facility] Comment on above: Performed By: #### L [id number] ####Ceramic Mold Designer: JAQUELIN BROWNBALAJI ([id number])[facility] [place] (SB[facility])[address] NRBC 0.0 /100 WBCs Normal 0.0-2.0 [facility] Comment on above: Performed By: #### L [id number] ####Ceramic Mold Designer: JAQUELIN RASCONYOEL ([id number])[facility] ([facility])[address] Platelet mean volume (Bld) [Entitic vol] 8.8 fL Low 9.0-12.7 [facility] Comment on above: Performed By: #### L [id number] ####Ceramic Mold Designer: JAQUELIN MO ([id number])[facility] [place] (SBHLAB)[address] Platelets (Bld) [#/Vol] 227 10*3/uL Normal 140-440 [facility] Comment on above: Performed By: #### L [id number] ####Ceramic Mold Designer: JAQUELIN MO ([id number])[facility] [place] (SB[facility])[address] RBC (Bld) [#/Vol] 2.88 10*6/uL Low 4.40-5.90 [facility] Comment on above: Performed By: #### L [id number] ####Ceramic Mold Designer: JAQUELIN MO ([id number])[facility] [place] (SB[facility])[address] WBC (Bld) [#/Vol] 5.1 10*3/uL Normal 3.6-10.7 [facility] Comment on above: Performed By: #### L [id number] ####Ceramic Mold Designer: JAQUELIN MO ([id number])[facility] [place] ([facility])[address] COMPREHENSIVE METABOLIC PANE Tommie 11-28-2024 Albumin [Mass/Vol] 2.8 g/dL Low 3.4-4.8 [facility] Comment on above: Performed By: #### L AB17, [id number] ####Ceramic Mold Designer: JAQUELIN MO ([id number])[facility] [place] (SB[facility])[address] ALP [Catalytic activity/Vol] 111 U/L Normal 40-150 [facility] Comment on above: Performed By: #### L AB17, [id number] ####Ceramic Mold Designer: JAQUELIN MO ([id number])[facility] [place] (SB[facility]AB)[address] [place] [address] [place] ALT [Catalytic activity/Vol] 34 U/L Normal <40 [facility] Comment on above: Performed By: #### L AB17, [id number] ####Ceramic Mold Designer: JAQUELIN MO ([id number])[facility] [place] (SB[facility]AB)[address] Anion gap [Moles/Vol] 10 mmol/L Normal 3-13 [facility] Comment on above: Performed By: #### L AB17, [id number] ####Ceramic Mold Designer: JAQUELIN MO ([id number])[facility] (SBHLAB)[address] AST [Catalytic activity/Vol] 28 U/L Normal <34 [facility] Comment on above: Performed By: #### L AB17, [id number] ####Ceramic Mold Designer: JAQUELIN MO ([id number])[facility] [place] (SBHLAB)[address] Bilirubin [Mass/Vol] 0.4 mg/dL Normal <1.2 [facility] Comment on above: Performed By: #### L AB17, [id number] ####Ceramic Mold Designer: JAQUELIN MO ([id number])[facility] (SBHLAB)[address] Calcium [Mass/Vol] 8.8 mg/dL Normal 8.8-10.0 [facility] Comment on above: Performed By: #### L AB17, [id number] ####Ceramic Mold Designer: JAQUELIN MO ([id number])[facility] [place] (SB[facility])[address] [place] [address] [place] Chloride [Moles/Vol] 106 mmol/L Normal 98-107 [facility] Comment on above: Performed By: #### L AB17, [id number] ####Ceramic Mold Designer: JAQUELIN MO ([id number])[facility] (SB[facility])[address] [place] [address] [place] CO2 [Moles/Vol] 27 mmol/L Normal 23-31 [facility] Comment on above: Performed By: #### L AB17, [id number] ####Ceramic Mold Designer: JAQUELIN RASCONYOEL ([id number])[facility] (SB[facility])[address] Creatinine [Mass/Vol] 4.87 mg/dL High 0.72-1.25 [facility] Comment on above: Performed By: #### L AB17, [id number] ####Ceramic Mold Designer: JAQUELIN BROWNBALAJI ([id number])[facility] (SBHLAB)[address] GLOMERULAR FILTRATION RATE ML/MIN/1.73 SQ M.PREDICTED 12.6 mL/min/1.73m*2 Low >60.0 [facility] Comment on above: Result Comment: Calc ulation based on the Chronic Kidney Disease Epidemiology Collaboration (CKD-EPI) equation refit without adjustment for race Performed By: #### L AB17, [id number] ####Ceramic Mold Designer: JAQUELIN RASCONYOEL ([id number])[facility] (SBHLAB)[address] Glucose [Mass/Vol] 135 mg/dL High 82-115 [facility] Comment on above: Performed By: #### L AB17, [id number] ####Ceramic Mold Designer: JAQUELIN BROWNBALAJI ([id number])[facility] (SBHLAB)[address] [place] [address] [place] Potassium [Moles/Vol] 4.7 mmol/L Normal 3.5-5.1 [facility] Comment on above: Result Comment: [facility] potassium values may be up to 0.5 mmol/L lower than serum values. Performed By: #### L AB17, [id number] ####Ceramic Mold Designer: JAQUELIN RASCONYOEL ([id number])[facility] (SBHLAB)[address] Protein [Mass/Vol] 6.1 g/dL Low 6.4-8.3 [facility] Comment on above: Performed By: #### L AB17, [id number] ####Ceramic Mold Designer: JAQUELINGAYLE MO ([id number])[facility] (SBHLAB)[address] Sodium [Moles/Vol] 143 mmol/L Normal 136-145 [facility] Comment on above: Performed By: #### L AB17, [id number] ####Ceramic Mold Designer: JAQUELIN MO ([id number])[facility] (SBHLAB)[address] Urea nitrogen [Mass/Vol] 43 mg/dL High 9-23 [facility] Comment on above: Performed By: #### L AB17, [id number] ####Ceramic Mold Designer: JAQUELIN MO ([id number])[facility] (SBHLAB)[address] Comprehensive metabolic 1998 panelOrdered By: Gina Gonsales on 11-28-2024 Albumin [Mass/Vol] 2.8 g/dL Low 3.4 - 4.8 g/dL [facility] ALP [Catalytic activity/Vol] 111 U/L 40 - 150 U/L [facility] ALT [Catalytic activity/Vol] 34 U/L NINF - 40 U/L [facility] Anion gap [Moles/Vol] 10 mmol/L 3 - 13 mmol/L [facility] AST [Catalytic activity/Vol] 28 U/L [facility] - [facility] U/L [facility] Bilirubin [Mass/Vol] 0.4 mg/dL NINF - 1.2 mg/dL [facility] Calcium [Mass/Vol] 8.8 mg/dL 8.8 - 10. 0 mg/dL [facility] Chloride [Moles/Vol] 106 mmol/L 98 - 10 7 mmol/L [facility] CO2 [Moles/Vol] 27 mmol/L 23 - 31 mmol/L [facility] Creatinine [Mass/Vol] 4.87 mg/dL High 0.72 - 1.25 mg/dL [facility] GFR/1.73 sq M.predicted (S/P/Bld) [Vol rate/Area] 12.6 mL/min Low - PINF [facility] Comment on above: Calculation based on the Chronic Kidney Disease Epidemiology Collaboration (CKD-EPI) equation refit without adjustment for race Glucose [Mass/Vol] 135 mg/dL High 82 - 115 mg/dL [facility] Interpretation and review of laboratory results Abnormal [facility] Potassium [Moles/Vol] 4.7 mmol/L 3.5 - 5.1 mmol/L [facility] Comment on above: Plasma potassium reji ues may be up to 0.5 mmol/L lower than serum values. Protein [Mass/Vol] 6.1 g/dL Low 6.4 - 8.3 g/dL [facility] Sodium [Moles/Vol] 143 mmol/L 136 - 145 mmol/L [facility] Urea nitrogen [Mass/Vol] 43 mg/dL High 9 - 23 mg/dL [facility] - Chemistry and C hemistry - challengeon 11-28-2024 Glucose [Mass/Vol] 119 mg/dL High 70 - 100 mg/dL [facility] Glucose [Mass/Vol] 131 mg/dL High 70 - 100 mg/dL [facility] Glucose [Mass/Vol] 137 mg/dL High 70 - 100 mg/dL [facility] TSH Qn 3.04 m[IU]/L [facility] Glucose [Mass/Vol] 128 mg/dL High 70 - 100 mg/dL [facility] - Drug toxicology on 11-28-2024 Vancomycin trough [Mass/Vol] 26.5 ug/mL [facility] No Panel Informationon 11-28 Interpretation and review of laboratory results Abnormal [facility] Performed by: Taisha Floyd [facility] [id number] CLIA ID: [id number] [facility] Interpretation and review of laboratory results Abnormal [facility] Performed by: Taisha Floyd [facility] [id number] CLIA ID: [id number] [facility] Interpretation and review of laboratory results Abnormal [facility] Performed by: Taisha Floyd [facility] [address] CLIA ID: [id number] [facility] Interpretation and review of laboratory results Abnormal [facility] Performed by: Taisha Floyd [facility] [address] CLIA ID: [id number] [facility] Progress Noteon 11-28-2024 Progress Note Nutrition Assessment [...] muscle mass loss Fluid Accumulation: Mild Generalized Angle Shearer Strength: Not Performed Nutrition Assessment: Pt is a 63 y/o male admitted to [facility] with complaints of Chills, weakness, and lethargy, no c/o CP, cough, nausea, vomiting. Respiratory panel wnl, COVID negative. Pt has ESRD on HD- on a Monday through Monday schedule at [facility]. Pt reports having a fair to decreased appetite. Pt is interested in trying Glucerna Shake once daily until his intakes/appetite is more consistent. Pt is unsure of his dry weight stating that he is not sure what a dry weight is. RD explained that it is a targeted weight. Per wt history, weighed 254# (07/10/24). Pt stated that sounds about right. Pt's CBW 265#. Estimated Daily Nutrient Needs: Energy Requirements Based On: Kcal/kg Weight Used for Energy Requirements: [place] Weight for Energy Calculation (kg): 75 kg Total Energy Requirements (kcals/day): 0144-7789 kcals (25-30 kcals/kg) Weight Used for Protein Requirements: [place] Weight in Kg Used for Protein Requirements: [...] Ordered Anthropometric Measures: Height: 177.8 cm (5' 10) Current Body Weight: 120 kg (265 lb) Weight Source: Not Specified Admission Body Weight: 113 kg (250 lb) Usual Body Weight: 115 kg (254 lb) (07/10/24) % Weight Change (Calculated): 4.3 [place] Body Weight (lbs) (Calculated): 166 lbs [place] Body Weight (Kg) (Calculated): 75 kg % [place] Body Weight (Calculated): 159.6 % BMI (kg/m2) [...] Oral Nutrition Supplement Arlin Juárez RD Contact: *[phone] or via Secure Chat [facility] Progress Note OCCUPATIONAL THERAPY [facility] Treatment Note Name/MRN: José Manuel Ashton ([id number]) Date of : 1960 Age: 63 y.o. Room/Bed: B4-887/B4-495 A Visit #: 1 out of 7 Discharge Recommendation: Custodial Facility Equipment Needed: No Assessment Patient was [...] mobility. (Progressing) (more content not included)... Normal [facility] Progress Note Department of Electronic Controls Repairer Supervisor al Medicine Division of Endocrinology, Diabetes, & Metabolism Endocrinology Note Patient Name: José Manuel Ashton : 1960 AGE: 63 y.o. [facility] Admission Date: 11/25/2024 Visit Date: 11/28/2024 Reason for Endocrine Consult: DM/Pt on U300 insulin Provider/Team Requesting Consult: Dr. Hills PCP: Brittaney Garcia MD Outpt [employer] Sports Coach: Yes [facility] ASSESSMENT: Type 2 diabetes mellitus with hyperglycemia, with longwall foreman insulin use Lethargy and chills HTN DM2 [...] low dose sliding scale Outpt Follow Up-- [facility] Endocrinology SUBJECTIVE/HPI: CHIEF COMPLAINT: Chief Complaint Patient presents with Altered Mental Status Pt presents to ED via EMS from [facility] for responding slowly and indicates he is cold. José Manuel Ashton is a 63 yo male who presented to ED from [facility] Dialysis center with Tremor, chills and delayed [...] in bed Patient reports he resides at [facility] Patient not sure of insulin doses at [facility] - Does not give his own injections. Reports blood sugars are checked before meals but not sure what blood sugar levels are. Carb controlled diet Patient reports tremors, chills Feels unsteady on feet. PT was stopped at [facility] per patient. Patient on IV vanc Glucose [...] hours PRN bisacodyl (DULCOLAX) 5 mg, Daily CA (more content not included)... Normal [facility] THYROID STIMULATING HORMONEo n 11-28-2024 THYROID STIMULATING HORMONE 3.04 uIU/mL Normal 0.35-4.94 [facility] Comment on above: Performed By: #### L AB17, [id number] ####Ceramic Mold Designer: JAQUELIN MO ([id number])[facility] [place] [address] TSH Qnon 11-28-2024 Interpretation and review of laboratory results Normal [facility] VANCOMYCIN, AUC TIMED DOSING on 11-28-2024 VANCOMYCIN, AUC 26.5 ug/mL Normal [facility] Comment on above: Result Comment: FLAVIO Trejo COMMENTS: PreHD level. Okay to draw any time prior to HD session. Toxicity is seen at concentrations >80-100 ug/mL Therapeutic (Peak) range: 20-40 Therapeutic (Trough) range: 5-10 Performed By: #### L AB39 ####Ceramic Mold Designer: JAQUELIN MO ([id number])[facility] ([facility])[address] [place] [address] Vancomycin trough [Mass/Vol] on 11-28-2024 Toxicity is seen at concentrations >80-100 ug/mL Therapeutic (Peak) range: 20-40 Therapeutic (Trough) range: 5-10 [facility] [id number] 11-27-2024 [id number] Care Managment Initi al Assessment Date: 11/27/2024 Patient Name: José Manuel Ashton : 1960 Patient Information Source of Information: Patient Cognition/Language: WFL - Within Functional Limits Permission given to speak with patient hospital sales representative/caregiver as indicated: Confirmation of Payer with patient/family: Yes Payer Name: [employer] MEDICARE/[facility] DUAL COMPLETE : No Confirmation of Primary Care Physician: Primary Caregiver: If assistance needed, confirmed caregiver ready, willing and able to care for patient at discharge: Confirmed with: Living Arrangements Current Residence: Number of Floors Number of Entry Steps: Bed/Bath Levels: Facility: Nursing Facility Skilled Facility Name: [facility] Plan to Return: Yes Lives [...] Services: Dialysis Type: Hemo Dialysis Provider Name/Location: [facility] M-F Durable Medical Equipment: Wheelchair (standard or power), Cane Patient's Goal/Discharge Plan Patient expects to be discharged to: [facility] Discharge Planning Actions: Continue to follow, Custodial Facility referral indicated Patient's Choice Rights and [employer] and Collaborative Relationships Disclosed as Indicated for Post-Acute Care: NA Interdisciplinary Team Engagement: Social Work Referral for: Additional Information: Spoke with patient at their bedside. Introduced self and role. Discussed discharge planning. Patient has health insurance and prescription coverage. Patient states he lives at [facility] and plans to return. Tasked FELT HAT FLANGING OPERATOR to send referral in [facility]. Will await response. He receives hemodialysis there Monday through Monday. He will need ambulance transport with cot upon discharge. follow up manager will continue to follow for any discharge planning needs. 2:46 PM UPDATE: Patient is a bedhold at [facility]. They would like to skill him for his return but he may return regardless when medically ready. They are submitting precert today. [facility] [phone] call to [facility] Home coverage line. Per [facility] coverage line, he was denied Assisted Living due to alf fdc care placement at [facility]. TCC notified. Normal [facility] BLOOD CULTUREon 11-27-2024 Bacteria identified Cx Nom (Bld) BLOOD CULTURE Reference No growth at 5 days ORDER COMMENTS: Blood Collection Site: Left Lower Arm [ S = SUSCEPTIBLE R = RESISTANT I = INTERMEDIATE S-DD = Susceptible-dose dependent NS = Non-susceptible NO = No Interpretation ] Normal [facility] Comment on above: Performed By: #### L [id number] #### Ceramic Mold Designer: ESAU SKINNER ([id number]) [facility] ([facility]) [address] [place] [address] CBC W Auto Differential pane l (Bld)on 11-27-2024 Basophils (Bld) [#/Vol] 0 10*3/uL 0.0 - 0.2 10*3/uL [email or web address] Basophils/100 WBC (Bld) 0.2 % 0.0 - 2.0 % [facility] Eosinophils (Bld) [#/Vol] 0.1 10*3/uL 0.0 - 0.5 10*3/uL [facility] Eosinophils/100 WBC (Bld) 2.8 % 0.0 - 6.0 % [facility] Erythrocyte distribution width (RBC) [Ratio] 12.6 % 11.5 - 15.0 % [facility] Hematocrit (Bld) [Volume fraction] 26.7 % Low 40.0 - 52.0 % [email or web address] Hemoglobin (Bld) [Mass/Vol] 8.5 g/dL Low 13.0 - 18.0 g/dL [email or web address] Immature granulocytes (Bld) [#/Vol] 0.1 10*3/uL High NINF - 0.1 10*3/uL [email or web address] Immature granulocytes/100 WBC (Bld) 1 % 0.0 - 2.0 % [facility] Interpretation and review of laboratory results Abnormal [facility] Lymphocytes (Bld) [#/Vol] 1.2 10*3/uL 1.0 - 4.3 10*3/uL [email or web address] Lymphocytes/100 WBC (Bld) 23.3 % 15.0 - 45.0 % [facility] MCH (RBC) [Entitic mass] 29 pg 26.0 - 34.0 pg [facility] MCHC (RBC) [Mass/Vol] 31.8 % 30.5 - 36.0 % [facility] MCV (RBC) [Entitic vol] 91.1 fL 77.0 - 99.0 fL [facility] Monocytes (Bld) [#/Vol] 0.6 10*3/uL 0.0 - 0.9 10*3/uL [facility] Monocytes/100 WBC (Bld) 11.9 % 5.0 - 13.0 % [facility] Neutrophils (Bld) [#/Vol] 3 10*3/uL 1.8 - 7.5 10*3/uL [facility] Neutrophils/100 WBC (Bld) 60.8 % 38.0 - 82.0 % [facility] Nucleated RBC/100 WBC (Bld) [Ratio] 0 % [facility] Platelet mean volume (Bld) [Entitic vol] 8.7 fL Low 9.0 - 12.7 fL [facility] Platelets (Bld) [#/Vol] 216 10*3/uL 140 - 440 10*3/uL [facility] RBC (Bld) [#/Vol] 2.93 10*6/uL Low 4.40 - 5.9 0 10*6/uL [facility] WBC (Bld) [#/Vol] 5 10*3/uL 3.6 - 10.7 10*3/uL [facility] CBC WITH AUTO DIFFERENTIALon 11-27-2024 Basophils (Bld) [#/Vol] 0.0 10*3/uL Normal 0.0-0.2 [facility] Comment on above: Performed By: #### L [id number] ####Ceramic Mold Designer: JAQUELIN MO ([id number])[facility] (SB[facility])[address] Basophils/100 WBC (Bld) 0.2 % Normal 0.0-2.0 [facility] Comment on above: Performed By: #### L [id number] ####Ceramic Mold Designer: JAQUELIN MO ([id number])[facility] (SB[facility])[address] Eosinophils (Bld) [#/Vol] 0.1 10*3/uL Normal 0.0-0.5 [facility] Comment on above: Performed By: #### L [id number] ####Ceramic Mold Designer: JAQUELIN RASCONYOEL ([id number])[facility] ([facility])[address] Eosinophils/100 WBC (Bld) 2.8 % Normal 0.0-6.0 [facility] Comment on above: Performed By: #### L [id number] ####Ceramic Mold Designer: JAQUELIN RASCONYOEL ([id number])[facility] ([facility])[address] Erythrocyte distribution width (RBC) [Ratio] 12.6 % Normal 11.5-15.0 [facility] Comment on above: Performed By: #### L [id number] ####Ceramic Mold Designer: JAQUELIN BROWNBALAJI ([id number])[facility] ([facility])[address] [place] [address] Hematocrit (Bld) [Volume fraction] 26.7 % Low 40.0-52.0 [facility] Comment on above: Performed By: #### L [id number] ####Ceramic Mold Designer: JAQUELIN RASCONYOEL ([id number])[facility] ([facility])[address] [place] [address] Hemoglobin (Bld) [Mass/Vol] 8.5 g/dL Low 13.0-18.0 [facility] Comment on above: Performed By: #### L [id number] ####Ceramic Mold Designer: JAQUELIN RASCONYOEL ([id number])[facility] ([facility])[address] IMMATURE GRANS % 1.0 % Normal 0.0-2.0 [facility] Comment on above: Performed By: #### L [id number] ####Ceramic Mold Designer: JAQUELIN RASCONYOEL ([id number])[facility] ([facility])[address] IMMATURE GRANS ABSOLUTE 0.1 10*3/uL High <0.1 [facility] Comment on above: Performed By: #### L [id number] ####Ceramic Mold Designer: JAQUELIN MO ([id number])[facility] (SB[facility])[address] Lymphocytes (Bld) [#/Vol] 1.2 10*3/uL Normal 1.0-4.3 [facility] Comment on above: Performed By: #### L [id number] ####Ceramic Mold Designer: JQAUELIN MO ([id number])[facility] [place] ([facility])[address] Lymphocytes/100 WBC (Bld) 23.3 % Normal 15.0-45.0 [facility] Comment on above: Performed By: #### L [id number] ####Ceramic Mold Designer: JAQUELIN MO ([id number])[facility] - [place] (SBHLAB)[address] MCH (RBC) [Entitic mass] 29.0 pg Normal 26.0-34.0 [facility] Comment on above: Performed By: #### L [id number] ####Ceramic Mold Designer: JAQUELIN MO ([id number])[facility] [place] (SBHLAB)[address] [place] [address] MCHC 31.8 % Normal 30.5-36.0 [facility] Comment on above: Performed By: #### L [id number] ####Ceramic Mold Designer: JAQUELIN MO ([id number])[facility] [place] (SB[facility])[address] [place] [address] MCV (RBC) [Entitic vol] 91.1 fL Normal 77.0-99.0 [facility] Comment on above: Performed By: #### L [id number] ####Ceramic Mold Designer: JAQUELIN MO ([id number])[facility] (SBHLAB)[address] [place] [address] Monocytes (Bld) [#/Vol] 0.6 10*3/uL Normal 0.0-0.9 [facility] Comment on above: Performed By: #### L [id number] ####Ceramic Mold Designer: JAQUELIN MO ([id number])[facility] [place] (SB[facility])[address] Monocytes/100 WBC (Bld) 11.9 % Normal 5.0-13.0 [facility] Comment on above: Performed By: #### L [id number] ####Ceramic Mold Designer: JAQUELIN MO ([id number])[facility] [place] (SB[facility])[address] NEUTROPHILS ABSOLUTE 3.0 10*3/uL Normal 1.8-7.5 [facility] Comment on above: Performed By: #### L [id number] ####Ceramic Mold Designer: JAQUELIN MO ([id number])[facility] [place] (SB[facility]AB)[address] [place] [address] Neutrophils/100 WBC (Bld) 60.8 % Normal 38.0-82.0 [facility] Comment on above: Performed By: #### L [id number] ####Ceramic Mold Designer: JAQUELIN MO ([id number])[facility] [place] (SB[facility])[address] NRBC 0.0 /100 WBCs Normal 0.0-2.0 [facility] Comment on above: Performed By: #### L [id number] ####Ceramic Mold Designer: JAQUELIN MO ([id number])[facility] [place] (SB[facility])[address] [place] [address] Platelet mean volume (Bld) [Entitic vol] 8.7 fL Low 9.0-12.7 [facility] Comment on above: Performed By: #### L [id number] ####Ceramic Mold Designer: JAQUELIN MO ([id number])[facility] [place] (SB[facility]AB)[address] Platelets (Bld) [#/Vol] 216 10*3/uL Normal 140-440 [facility] Comment on above: Performed By: #### L [id number] ####Ceramic Mold Designer: JAQUELIN MO ([id number])[facility] (SBHLAB)[address] RBC (Bld) [#/Vol] 2.93 10*6/uL Low 4.40-5.90 [facility] Comment on above: Performed By: #### L [id number] ####Ceramic Mold Designer: JAQUELIN MO ([id number])[facility] (SBAB)[address] WBC (Bld) [#/Vol] 5.0 10*3/uL Normal 3.6-10.7 [facility] Comment on above: Performed By: #### L [id number] ####Ceramic Mold Designer: JAQUELIN MO ([id number])[facility] ([facility])[address] [place] [address] COMPLETE URINALYSIS WITH REF BETHANY TO CULTUREon 11-27-2024 BACTERIA (#/HPF) IN URINE Negative Normal Negative [facility] Comment on above: Performed By: #### L [id number] ####Ceramic Mold Designer: JAQUELIN MO ([id number])[facility] ([facility])[address] [place] [address] BILIRUBIN, TOTAL PRESENCE IN URINE Negative Normal Negative [facility] Comment on above: Performed By: #### L [id number] ####Ceramic Mold Designer: JAQUELIN MO ([id number])[facility] ([facility])[address] [place] [address] Clarity (U) Clear Normal Clear [facility] Comment on above: Performed By: #### L [id number] ####Ceramic Mold Designer: JAQUELIN MO ([id number])[facility] ([facility])[address] [place] [address] Color (U) Light Yellow Normal Lt. Yellow [facility] Comment on above: Performed By: #### L [id number] ####Ceramic Mold Designer: JAQUELIN MO ([id number])[facility] [place] (SBHLAB)[address] Glucose (U) [Mass/Vol] 500 mg/dL Abnormal Normal (<70) [facility] Comment on above: Performed By: #### L [id number] ####Ceramic Mold Designer: JAQUELIN MO ([id number])[facility])[address] HEMOGLOBIN PRESENCE IN URINE 0.03 mg/dL Abnormal Negative [facility] Comment on above: Performed By: #### L [id number] ####Ceramic Mold Designer: JAQUELIN MO ([id number])[facility] ([facility])[address] Ketones Ql (U) Negative Normal Negative [facility] Comment on above: Performed By: #### L [id number] ####Ceramic Mold Designer: JAQUELIN MO ([id number])[facility] ([facility])[address] LEUKOCYTE ESTERASE PRESENCE IN URINE BY TEST STRIP Negative Normal Negative [facility] Comment on above: Performed By: #### L [id number] ####Ceramic Mold Designer: JAQUELIN MO ([id number])[facility] ([facility])[address] NITRITE PRESENCE IN URINE Negative Normal Negative [facility] Comment on above: Performed By: #### L [id number] ####Ceramic Mold Designer: JAQUELIN MO ([id number])[facility] ([facility])[address] pH (U) 6.0 [pH] Normal 5.0-8.0 [facility] Comment on above: Performed By: #### L [id number] ####Ceramic Mold Designer: JAQUELIN MO ([id number])[facility] ([facility])[address] Protein (U) [Mass/Vol] 100 mg/dL Abnormal Negative [facility] Comment on above: Performed By: #### L [id number] ####Ceramic Mold Designer: JAQUELIN MO ([id number])[facility] [place] (SB[facility]AB)[address] RBC (#/HPF) IN URINE SEDIMENT 0-2 Normal 0-2 [facility] Comment on above: Performed By: #### L [id number] ####Ceramic Mold Designer: JAQUELIN MO ([id number])[facility] [place] (SBHLAB)[address] Specific gravity (U) [Rel density] 1.013 Normal 1.005-1.030 [facility] Comment on above: Result Comment: FLAVIO Trejo COMMENTS: A specimen with <=10 WBC is not consistent with inflammation. This specimen will not reflex to a urine culture. Performed By: #### L [id number] ####Ceramic Mold Designer: JAQUELIN MO ([id number])[facility] [place] (SBHLAB)[address] SQUAMOUS EPITHELIAL CELLS (#/HPF) IN URINE SEDIMENT Negative Normal 3-5 [facility] Comment on above: Performed By: #### L [id number] ####Ceramic Mold Designer: JAQUELIN MO ([id number])[facility] [place] (SB[facility]AB)[address] UROBILINOGEN (MG/DL) IN URINE Normal Normal Normal (0-1) [facility] Comment on above: Performed By: #### L [id number] ####Ceramic Mold Designer: JAQUELIN MO ([id number])[facility] [place] (SBHLAB)[address] WBC (LEUKOCYTE) (#/HPF) IN URINE SEDIMENT 0-2 Normal 0-5 [facility] Comment on above: Performed By: #### L [id number] ####Ceramic Mold Designer: JAQUELIN MO ([id number])[facility] [place] (SB[facility]AB)[address] COMPREHENSIVE METABOLIC PANE Tommie 11-27-2024 Albumin [Mass/Vol] 2.9 g/dL Low 3.4-4.8 [facility] Comment on above: Performed By: #### L [id number] ####Ceramic Mold Designer: JAQUELIN MO ([id number])[facility] [place] (SBHLAB)[address] ALP [Catalytic activity/Vol] 94 U/L Normal 40-150 [facility] Comment on above: Performed By: #### L [id number] ####Ceramic Mold Designer: JAQUELIN MO ([id number])[facility] [place] (SB[facility]AB)[address] ALT [Catalytic activity/Vol] 16 U/L Normal <40 [facility] Comment on above: Performed By: #### L [id number] ####Ceramic Mold Designer: JAQUELIN MO ([id number])[facility] [place] (SB[facility]AB)[address] Anion gap [Moles/Vol] 11 mmol/L Normal 3-13 [facility] Comment on above: Performed By: #### L [id number] ####Ceramic Mold Designer: JAQUELIN MO ([id number])[facility] [place] (SB[facility]AB)[address] AST [Catalytic activity/Vol] 17 U/L Normal <34 [facility] Comment on above: Performed By: #### L [id number] ####Ceramic Mold Designer: JAQUELIN MO ([id number])[facility] [place] (SB[facility]AB)[address] Bilirubin [Mass/Vol] 0.4 mg/dL Normal <1.2 [facility] Comment on above: Performed By: #### L [id number] ####Ceramic Mold Designer: JAQUELIN MO ([id number])[facility] [place] (SB[facility])[address] Calcium [Mass/Vol] 9.0 mg/dL Normal 8.8-10.0 [facility] Comment on above: Performed By: #### L [id number] ####Ceramic Mold Designer: JAQUELIN MO ([id number])[facility] [place] (SBHLAB)[address] Chloride [Moles/Vol] 106 mmol/L Normal 98-107 [facility] Comment on above: Performed By: #### L [id number] ####Ceramic Mold Designer: JAQUELIN MO ([id number])[facility] [place] (SB[facility]AB)[address] CO2 [Moles/Vol] 27 mmol/L Normal 23-31 [facility] Comment on above: Performed By: #### L [id number] ####Ceramic Mold Designer: JAQUELIN MO ([id number])[facility] [place] (SB[facility]AB)[address] Creatinine [Mass/Vol] 6.86 mg/dL High 0.72-1.25 [facility] Comment on above: Performed By: #### L [id number] ####Ceramic Mold Designer: JAQUELIN MO ([id number])[facility] [place] (HLAB)[address] GLOMERULAR FILTRATION RATE ML/MIN/1.73 SQ M.PREDICTED 8.3 mL/min/1.73m*2 Low >60.0 [facility] Comment on above: Result Comment: Calc ulation based on the Chronic Kidney Disease Epidemiology Collaboration (CKD-EPI) equation refit without adjustment for race Performed By: #### L [id number] ####Ceramic Mold Designer: JAQUELIN MO ([id number])[facility] [place] (SBHLAB)[address] [place] [address] [place] Glucose [Mass/Vol] 161 mg/dL High 82-115 [facility] Comment on above: Performed By: #### L [id number] ####Ceramic Mold Designer: JAQUELIN MO ([id number])[facility] [place] (SB[facility]AB)[address] [place] [address] [place] Potassium [Moles/Vol] 4.8 mmol/L Normal 3.5-5.1 [facility] Comment on above: Result Comment: [facility] potassium values may be up to 0.5 mmol/L lower than serum values. Performed By: #### L [id number] ####Ceramic Mold Designer: JAQUELIN MO ([id number])[facility] (SBHLAB)[address] Protein [Mass/Vol] 6.2 g/dL Low 6.4-8.3 [facility] Comment on above: Performed By: #### L [id number] ####Ceramic Mold Designer: JAQUELIN MO ([id number])[facility] (SBHLAB)[address] Sodium [Moles/Vol] 144 mmol/L Normal 136-145 [facility] Comment on above: Performed By: #### L [id number] ####Ceramic Mold Designer: JAQUELIN MO ([id number])[facility] [place] (SBHLAB)[address] Urea nitrogen [Mass/Vol] 67 mg/dL High 9-23 [facility] Comment on above: Performed By: #### L [id number] ####Ceramic Mold Designer: JAQUELIN RASCONYOEL ([id number])[facility] (SBHLAB)[address] Comprehensive metabolic 1998 panelOrdered By: David Hartley on 11-27-2024 Albumin [Mass/Vol] 2.9 g/dL Low 3.4 - 4.8 g/dL [facility] ALP [Catalytic activity/Vol] 94 U/L 40 - 150 U/L [facility] ALT [Catalytic activity/Vol] 16 U/L NINF - 40 U/L [facility] Anion gap [Moles/Vol] 11 mmol/L 3 - 13 mmol/L [facility] AST [Catalytic activity/Vol] 17 U/L NINF - 34 U/L [facility] Bilirubin [Mass/Vol] 0.4 mg/dL NINF - 1.2 mg/dL [facility] Calcium [Mass/Vol] 9 mg/dL 8.8 - 10. 0 mg/dL [facility] Chloride [Moles/Vol] 106 mmol/L 98 - 10 7 mmol/L [facility] CO2 [Moles/Vol] 27 mmol/L 23 - 31 mmol/L [facility] Creatinine [Mass/Vol] 6.86 mg/dL High 0.72 - 1.25 mg/dL [facility] GFR/1.73 sq M.predicted (S/P/Bld) [Vol rate/Area] 8.3 mL/min Low - PINF [facility] Comment on above: Calculation based on the Chronic Kidney Disease Epidemiology Collaboration (CKD-EPI) equation refit without adjustment for race Glucose [Mass/Vol] 161 mg/dL High 82 - 115 mg/dL [facility] Interpretation and review of laboratory results Abnormal [facility] Potassium [Moles/Vol] 4.8 mmol/L 3.5 - 5.1 mmol/L [facility] Comment on above: Plasma potassium reji ues may be up to 0.5 mmol/L lower than serum values. Protein [Mass/Vol] 6.2 g/dL Low 6.4 - 8.3 g/dL [facility] Sodium [Moles/Vol] 144 mmol/L 136 - 145 mmol/L [facility] Urea nitrogen [Mass/Vol] 67 mg/dL High 9 - 23 mg/dL [facility] HBV surface Ab IA Qnon 11-27 Interpretation: <8.0 Non-Reactive 8.0-11.9 Equivocal >= 12.0 Ab Detected Note: If an equivocal result is interpreted, an antibody status is unable to be determined. Collect new specimen if clinically indicated. [facility] HBV surface Ag IA Qlon 11-27 Interpretation and review of laboratory results Normal [facility] HEPATITIS B SURFACE ANTIBODY on 11-27-2024 HEPATITIS B VIRUS SURFACE AB <8.0 Normal [facility] Comment on above: Result Comment: ORDE R COMMENTS: Interpretation: <8.0 Non-Reactive 8.0-11.9 Equivocal >= 12.0 Ab Detected Note: If an equivocal result is interpreted, an antibody status is unable to be determined. Collect new specimen if clinically indicated. Performed By: #### L [id number], [id number] ####Ceramic Mold Designer: ESAU SKINNER ([id number])[facility] ([address] HEPATITIS B VIRUS SURFACE AB <8.0 Normal [facility] Comment on above: Result Comment: FLAVIO R COMMENTS: Interpretation: <8.0 Non-Reactive 8.0-11.9 Equivocal >= 12.0 Ab Detected Note: If an equivocal result is interpreted, an antibody status is unable to be determined. Collect new specimen if clinically indicated. Performed By: #### L [id number], [id number] ####Ceramic Mold Designer: ESAU SKINNER ([id number])[facility])[address] [place] [address] HEPATITIS B SURFACE ANTIGENo n 11-27-2024 HEPATITIS B VIRUS SURFACE AG Not detected Normal Not Detected [facility] Comment on above: Performed By: #### L [id number], [id number] ####Ceramic Mold Designer: ESAU SKINNER ([id number])[facility] ([facility])[address] [place] [address] HEPATITIS B VIRUS SURFACE AG Not detected Normal Not Detected [facility] Comment on above: Performed By: #### L [id number], [id number] ####Ceramic Mold Designer: ESAU SKINNER ([id number])[address] LEGIONELLA AND STREPTOCOCCUS URINE ANTIGENon 11-27-2024 LEGIONELLA [...] pneumophila serogroups may also be detected. Normal [facility] Comment on above: Performed By: #### L [id number] ####Ceramic Mold Designer: ESAU SKINNER ([id number])[facility])[address] [place] [address] Laboratory - Chemistry and C hemistry - challengeon 11-27-2024 Glucose [Mass/Vol] 158 mg/dL High 70 - 100 mg/dL [facility] Glucose [Mass/Vol] 137 mg/dL High 70 - 100 mg/dL [facility] Glucose [Mass/Vol] 142 mg/dL High 70 - 100 mg/dL [facility] Laboratory - Drug toxicology on 11-27-2024 Vancomycin trough [Mass/Vol] 21.8 ug/mL [facility] Laboratory - Microbiology an d Antimicrobial susceptibilityon 11-27-2024 HBV surface Ab IA Qn mIU/mL [facility] HBV surface Ag IA Ql Not detected Not Detected [facility] No Panel Informationon 11-27 Interpretation and review of laboratory results Abnormal [facility] Performed by: [facility], [facility], [address] [place] [id number] CLIA ID: [id number] [facility] Extra Tube Hold for add-ons. [facility] Comment on above: Auto resulted. [facility] Interpretation and review of laboratory results Abnormal [facility] Performed by: [facility], [address] [place] [id number] CLIA ID: [id number] [facility] Interpretation and review of laboratory results Abnormal [facility] Performed by: [facility], [address] [place] [id number] CLIA ID: [id number] [facility] No Panel InformationOrdered By: Elayne Ladd on 11-27-2024 Interpretation and review of laboratory results Normal [facility] Legionella pneumophila Ag Not detected Not Detected [facility] Streptococcus pneumoniae Ag Not detected Not Detected [facility] Methodology: Lateral flow enzyme immunoassay This assay is approved for detection of antigens to Streptococcus pneumoniae and Legionella pneumophila serogroup 1; however, other L. pneumophila serogroups may also be detected. Methodology: Lateral flow enzyme immunoassay This assay is approved for detection of antigens to Streptococcus pneumoniae and Legionella pneumophila serogroup 1; however, other L. pneumophila serogroups may also be detected. [facility] Nursing Noteon 11-27-2024 Nursing Note Patient Name: José Manuel Ashton Patient : 1960 Acct: [id number] Date of Admission: 11/25/2024 Room[facility]: [facility] A Code Status: Full Code Allergies: Allergies[1] [...] (0) 4 Regular None (Room air) Diminished [place] Warm;Dry -- -- -- Labs Lab Results Component Value Date/Time WBC 5.0 11/27/2024338 HGB 8.5 (L) 11/27/2024 033 HCT 26.7 (L) 11/27/2024 033 PLT 216 11/27/2024 0339 NA 144 11/27/2024 0339 K 4.8 11/27/2024 033 CL 106 11/27/2024 0339 CO2 27 11/27/2024 0339 BUN 67 (H) 11/27/2024 0339 CREATININE 6.86 (H) 11/27/2024 0339 CALCIUM 9.0 11/27/2024 033 PHOS 2.9 10/01/2023 1115 IV Drips and Rate/Dose Continuous Meds[3] Safety - Before each treatment: Dialysis Machine No.: [id number] RO Machine Number: [id number] Dialyzer Lot No.: [id number] Tubing Lot Number: [id number] All Connections Secure: Yes Venous Parameters Set: Yes Arterial Parameters Set: Yes NS Bag: Yes Saline Line Double Clamped: Yes Dialyzer: Nipro Prime Volume (mL): 200 mL RO Machine Number: [id number] RO Machine Log Sheet Completed: Yes Conductivity Meter Serial #: [id number] Machine Functioning Alarm Free? Yes Dialysis Bath: Chlorine Testing - Before each treatment and every 4 hours: Weight Height: 177.8 cm (5' 10) (11/26/24 1501) Weight: 113 kg (250 lb) [...] -- 90 -- -- 11/26/242007 147/67 37.1 ?C (98.7 ?F) Temporal 95 [...] a ch (more content not included)... Normal [facility] Progress Noteon 11-27-2024 Progress Note ------ -- Attestation signed by Tosha Barriga MD at 11/27/2024 5:03 PM I have reviewed the above assessment and plan with the ASSOCIATE SOFTWARE DEVELOPER. I agree with above note. HD today. Sees Dr. Abiel dudley outpatient. We cover his patients here. -- [facility] Progress Note Subjective/ 63 y.o. year old male who we are seeing in consultation for ESRD. Interval History Admitted for weakness, chills, and lethargy Resting in bed, easily arousable Reports generalized pain BP stable Adequate PO intake ROS Otherwise negative No interval changes to [facility]. All interval notes/labs/imaging reviewed. Objective/ Vitals: 11/26/24 [...] kg on admission. - Blood cultures drawn 8/25: NGTD - Strict I&Os - Daily weight [...] to call with any questions or concerns. [facility] Office This note is [...] OR ondansetron, oxyCODONE, polyethylene glycol (PEG) [address] [facility] Progress Note Nutrition rescreen completed. Pt referred to RD for ESRD patient on HD. [facility] Progress Note Department of Electronic Controls Repairer Supervisor al Medicine Division of Endocrinology, Diabetes, & Metabolism Endocrinology Note Patient Name: José Manuel Ashton : 1960 AGE: 63 y.o. [facility] A Admission Date: 11/25/2024 Visit Date: 11/27/2024 Reason for Endocrine Consult: DM/Pt on U300 insulin Provider/Team Requesting Consult: Dr. Hills PCP: Brittaney Garcia MD Outpt [employer]: [facility] ASSESSMENT: Type 2 diabetes mellitus with hyperglycemia, with alf insulin use Lethargy and chills HTN DM2 [...] on day of discharge Outpt Follow Up-- [facility] Endocrinology SUBJECTIVE/HPI: CHIEF COMPLAINT: Chief Complaint Patient presents with Altered Mental Status Pt presents to ED via EMS from [facility] for responding slowly and indicates he is cold. José Manuel Ashton is a 63 yo male who presented to ED from [facility] center with Tremor, chills and delayed [...] in bed Patient reports he resides at [facility] Patient not sure of insulin doses at [facility] - Does not give his own injections. [...] Scheduled Meds:Schedul (more content not included)... Normal [facility] Urinalysis complete panel (U )Ordered By: Nusrat Zelaya on 11-27-2024 Bacteria LM.HPF (Urine sed) [#/Area] Negative Negative /HPF [facility] Bilirubin Ql (U) Negative Negative mg/dL [facility] Clarity (U) Clear Clear [facility] Color (U) Light Yellow Lt. Yellow [facility] Epithelial cells.squamous LM.HPF (Urine sed) [#/Area] Negative [facility] Glucose Ql (U) 500 mg/dL Abnormal Normal (<70) [facility] Hemoglobin Ql (U) 0.03 mg/dL Abnormal Negative [facility] Interpretation and review of laboratory results Abnormal [facility] Ketones (U) [Mass/Vol] Negative Negative mg/dL [facility] Leukocyte esterase Test strip Ql (U) Negative Negative Norm/uL [facility] Nitrite Ql (U) Negative Negative [facility] pH (U) 6.0 [pH] 5.0 - 8.0 pH [facility] Protein (U) [Mass/Vol] 100 mg/dL Abnormal Negative [facility] RBC LM.HPF (Urine sed) [#/Area] 0-2 [facility] Specific gravity (U) [Rel density] 1.013 1.005 - 1.030 [facility] Urobilinogen (U) [Mass/Vol] Normal Normal (0-1) mg/dL [facility] WBC LM.HPF (Urine sed) [#/Area] 0-2 [facility] A specimen with <=10 WBC is not consistent with inflammation. This specimen will not reflex to a urine culture. [facility] VANCOMYCIN, AUC TIMED DOSING on 11-27-2024 VANCOMYCIN, AUC 21.8 ug/mL Normal [facility] Comment on above: Result Comment: FLAVIO Trjeo COMMENTS: Please draw level this morning prior to HD. Toxicity is seen at concentrations >80-100 ug/mL Therapeutic (Peak) range: 20-40 Therapeutic (Trough) range: 5-10 Performed By: #### L AB39 ####Ceramic Mold Designer: JAQUELIN MO ([id number])[facility] (SBHLAB)[address] [place] [address] Vancomycin trough [Mass/Vol] on 11-27-2024 Toxicity is seen at concentrations >80-100 ug/mL Therapeutic (Peak) range: 20-40 Therapeutic (Trough) range: 5-10 [facility] COMPREHENSIVE METABOLIC PANE Tommie 11-26-2024 Albumin [Mass/Vol] 3.0 g/dL Low 3.4-4.8 [facility] Comment on above: Performed By: #### L [id number], [id number] ####Ceramic Mold Designer: JAQUELIN MO ([id number])[facility] (SBHLAB)[address] ALP [Catalytic activity/Vol] 95 U/L Normal 40-150 [facility] Comment on above: Performed By: #### L AB17, [id number] ####Ceramic Mold Designer: JAQUELIN MO ([id number])[facility] (SBHLAB)[address] ALT [Catalytic activity/Vol] 14 U/L Normal <40 [facility] Comment on above: Performed By: #### L [id number], [id number] ####Ceramic Mold Designer: JAQUELIN MO ([id number])[facility] NANJEMOY (SBHLAB)[address] Anion gap [Moles/Vol] 11 mmol/L Normal 3-13 [facility] Comment on above: Performed By: #### L [id number], [id number] ####Ceramic Mold Designer: JAQUELIN MO ([id number])[facility] (SBHLAB)[address] AST [Catalytic activity/Vol] 21 U/L Normal <34 [facility] Comment on above: Performed By: #### L AB17, [id number] ####Ceramic Mold Designer: JAQUELIN MO ([id number])[facility] (SBHLAB)[address] Bilirubin [Mass/Vol] 0.4 mg/dL Normal <1.2 [facility] Comment on above: Performed By: #### L [id number], [id number] ####Ceramic Mold Designer: JAQUELIN MO ([id number])[facility] LINCOLNNIDIA (SBHLAB)[address] Calcium [Mass/Vol] 9.0 mg/dL Normal 8.8-10.0 [facility] Comment on above: Performed By: #### L AB17, [id number] ####Ceramic Mold Designer: JQAUELIN MO ([id number])[facility] BARBNIDIA (SBHLAB)[address] Chloride [Moles/Vol] 105 mmol/L Normal 98-107 [facility] Comment on above: Performed By: #### L AB17, [id number] ####Ceramic Mold Designer: JAQUELIN MO ([id number])[facility] LINCOLNNIDIA (SBHLAB)[address] CO2 [Moles/Vol] 24 mmol/L Normal 23-31 [facility] Comment on above: Performed By: #### L AB17, [id number] ####Ceramic Mold Designer: JAQUELIN MO ([id number])[facility] LINCOLNN[place] (SBHLAB)[address] Creatinine [Mass/Vol] 5.70 mg/dL High 0.72-1.25 [facility] Comment on above: Performed By: #### L AB17, [id number] ####Ceramic Mold Designer: JAQUELIN MO ([id number])[facility] BARBNIDIA (SBHLAB)[address] GLOMERULAR FILTRATION RATE ML/MIN/1.73 SQ M.PREDICTED 10.4 mL/min/1.73m*2 Low >60.0 [facility] Comment on above: Result Comment: Calc ulation based on the Chronic Kidney Disease Epidemiology Collaboration (CKD-EPI) equation refit without adjustment for race Performed By: #### L [id number], [id number] ####Ceramic Mold Designer: JAQUELIN MO ([id number])[facility] [place]NN[place] (SBHLAB)[address] Glucose [Mass/Vol] 123 mg/dL High 82-115 [facility] Comment on above: Performed By: #### L AB17, [id number] ####Ceramic Mold Designer: JAQUELIN MO ([id number])[facility]A LINCOLNCARRIE TINGLEY HOSPITALNaheed (SBHLAB)[address] Potassium [Moles/Vol] 4.4 mmol/L Normal 3.5-5.1 [facility] Comment on above: Result Comment: [facility] potassium values may be up to 0.5 mmol/L lower than serum values. Performed By: #### L AB17, [id number] ####Ceramic Mold Designer: JAQUELIN MO ([id number])[facility] NANJEMOY (SBHLAB)[address] Protein [Mass/Vol] 6.4 g/dL Normal 6.4-8.3 [facility] Comment on above: Performed By: #### L AB17, [id number] ####Ceramic Mold Designer: JAQUELIN MO ([id number])[facility] (SBHLAB)[address] Sodium [Moles/Vol] 140 mmol/L Normal 136-145 [facility] Comment on above: Performed By: #### L [id number], [id number] ####Ceramic Mold Designer: JAQUELIN MO ([id number])[facility] (SBHLAB)[address] Urea nitrogen [Mass/Vol] 56 mg/dL High 9-23 [facility] Comment on above: Performed By: #### L AB17, [id number] ####Ceramic Mold Designer: JAQUELIN MO ([id number])[facility] (SBHLAB)[address] Comprehensive metabolic 1998 panelon 11-26-2024 Albumin [Mass/Vol] 3 g/dL Low 3.4 - 4.8 g/dL [facility] ALP [Catalytic activity/Vol] 95 U/L 40 - 150 U/L [facility] ALT [Catalytic activity/Vol] 14 U/L [facility] - 40 U/L [facility] Anion gap [Moles/Vol] 11 mmol/L 3 - 13 mmol/L [facility] AST [Catalytic activity/Vol] 21 U/L NINF - 34 U/L [facility] Bilirubin [Mass/Vol] 0.4 mg/dL NINF - 1.2 mg/dL [facility] Calcium [Mass/Vol] 9 mg/dL 8.8 - 10. 0 mg/dL [facility] Chloride [Moles/Vol] 105 mmol/L 98 - 10 7 mmol/L [facility] CO2 [Moles/Vol] 24 mmol/L 23 - 31 mmol/L [facility] Creatinine [Mass/Vol] 5.7 mg/dL High 0.72 - 1.25 mg/dL [facility] GFR/1.73 sq M.predicted (S/P/Bld) [Vol rate/Area] 10.4 mL/min Low - PINF [facility] Comment on above: Calculation based on the Chronic Kidney Disease Epidemiology Collaboration (CKD-EPI) equation refit without adjustment for race Glucose [Mass/Vol] 123 mg/dL High 82 - 115 mg/dL [facility] Interpretation and review of laboratory results Abnormal [facility] Potassium [Moles/Vol] 4.4 mmol/L 3.5 - 5.1 mmol/L [facility] Comment on above: Plasma potassium reji ues may be up to 0.5 mmol/L lower than serum values. Protein [Mass/Vol] 6.4 g/dL 6.4 - 8.3 g/dL [facility] Sodium [Moles/Vol] 140 mmol/L 136 - 145 mmol/L [facility] Urea nitrogen [Mass/Vol] 56 mg/dL High 9 - 23 mg/dL [facility] Consulton 11-26-2024 Consult ------ -- Attestation signed by Tosha Barriga MD at 11/26/2024 9:51 PM I have reviewed the above assessment and plan with the ASSOCIATE SOFTWARE DEVELOPER. I agree with above note. HD tomorrow. Patient established with Dr Abiel Dudley outpatient. We cover his patients here. -- [facility] Consultation Note Reason for [...] HD -. Facility staff noticed he was not acting like himself. CXR on admission was unremarkable, Nephrology is consulted for evaluation and management of ESRD and hemodialysis. Patient follows with Dr. Dudley at [facility]. He receives HD at his facility M- to a DW of 115 kg. Last [...] Position: Lying Pulse: 81 82 90 Resp: 18 Temp: 36.5 ?C (97.7 ?F) 36.2 ?C (97.1 ?F) TempSrc: Oral Temporal SpO2: 100% 97% 99% Weight: 113 kg (250 lb) Height: 1.778 m (5' 10) 24 HR INTAKE/OUTPUT: Intake/Output Summary (Last 24 [...] CALCIUM 9.0 11/26/2024 No results found for: APPEARANCE, COLORU, LABSPEC, LABPH, URINE, GLUCOSEU, UROBILINOGEN, BILIRUBINUR, OCBU Assessment 63 y.o. male with ESRD N18.6 HTN in CKD I12.9 Anemia in CKD D63.1 T2DM in CKD E11.22 Lethargy R53.83 Dependence on hemodialysis RECOMMENDATIONS: - Will plan for HD tomorrow. HD schedule M-, last session was yesterday 11/25. I was able to get in contact with his dialysis nurse at [facility] and she confirmed his DW had recently [...] concerns regarding my recommendations as outlined above. [facility] Office [1] No family history on file. [2] Social History Socioeconomic History Marital status: Single Social Drivers of Health Financial Resource Strain: Medium Risk (05/24/2023) Received from [facility] Overall Financial Resource Strain (CARDIA) Difficulty of [...] Physical Activity: Insufficiently Active (12/28/2021) Received from [facility] Exercise Vital Sign Days of Exercise per Week: 7 days Minutes of Exercise p (more content not included)... [facility] Consult Department of Electronic Controls Repairer Supervisor al Medicine Division of Endocrinology, Diabetes, & Metabolism Endocrinology Note Patient Name: José Manuel Ashton : 1960 AGE: 63 y.o. Room/Bed: Admission Date: 11/25/2024 Visit Date: 11/26/2024 Reason for Endocrine Consult: DM/Pt on U300 insulin Provider/Team Requesting Consult: Dr. 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 José Manuel Ashton is a 63 yo male who presented to ED from [facility] Dialysis center with Tremor, chills and delayed [...] in bed Patient reports he resides at [facility] Patient not sure of insulin doses at [facility] - Does not give his own injections. Reports blood sugars are checked before meals but not sure what blood sugar levels are. Carb controlled diet Patient reports tremors, chills Feels unsteady on feet. PT was stopped at [facility] per patient. Glucose Date/Time Value Ref Range [...] CALCIUM 9.0 11/26/2024 No results found for: CHLPL, CHOL No results found for: TRIG No results found for: HDL No results found for: LDLCALC No results found for: VLDL (more content not included)... Normal [facility] HEMOGLOBIN A1Con 11-26-2024 Glucose [Mass/Vol] 111 mg/dL Normal [facility] Comment on above: Result Comment: FLAVIO [...] repeat testing. Performed By: #### L [id number] ####Ceramic Mold Designer: JAQUELIN MO ([id number])[facility]ENTER[facility] ([facility])[address] HEMOGLOBIN A1C 5.5 %HbA1C Normal <5.7 [facility] Comment on above: Result Comment: Norm al less than 5.7% Prediabetes 5.7% to 6.4% Diabetes 6.5% or higher --HgbA1C levels may not be accurate in patients who have renal disease, received recent blood transfusions, are anemic, or who have dyshemoglobinemia. Performed By: #### L AB90 ####Ceramic Mold Designer: JAQUELIN MO ([id number])[facility] ([facility])[address] [place] [address] Laboratory - Chemistry and C hemistry - challengeon 11-26-2024 Glucose [Mass/Vol] 180 mg/dL High 70 - 100 mg/dL [facility] Glucose [Mass/Vol] 206 mg/dL High 70 - 100 mg/dL [facility] Glucose [Mass/Vol] 174 mg/dL High 70 - 100 mg/dL [facility] Average glucose Estimated from glycated hemoglobin (Bld) [Mass/Vol] 111 mg/dL [facility] Procalcitonin [Mass/Vol] 0.3 ng/mL High NINF - 0.07 ng/mL [facility] Laboratory - Drug toxicology on 11-26-2024 Vancomycin trough [Mass/Vol] 19.8 ug/mL [facility] Laboratory - Hematology and Cell countson 11-26-2024 HbA1c (Bld) [Mass fraction] 5.5 % [facility] Comment on above: Normal less than 5.7 % Prediabetes 5.7% to 6.4% Diabetes 6.5% or higher --HgbA1C levels may not be accurate in patients who have renal disease, received recent blood transfusions, are anemic, or who have dyshemoglobinemia. No Panel Informationon 11-26 Interpretation and review of laboratory results Abnormal [facility] Performed by: Felicita Daly, [address] [place] [id number] CLIA ID: [id number] [facility] Interpretation and review of laboratory results Abnormal [facility] Performed by: Felicita Larsenn, [address] [place] [id number] CLIA ID: [id number] [facility] Interpretation and review of laboratory results Abnormal [facility] Performed by: Felicita Garerton, [address] [place] [address] CLIA ID: [id number] [facility] HbA1c values of 5.7- 6.4 percent indicate an increased risk for developing diabetes mellitus. HbA1c values greater than or equal to 6.5 percent are diagnostic of diabetes mellitus. For diagnosis of diabetes in individuals without unequivocal hyperglycemia, results should be confirmed by repeat testing. [facility] PROCALCITONIN TESTon 025 PROCALCITONIN 0.30 ng/mL High <0.07 [facility] Comment on above: Result Comment: FLAVIO Trejo COMMENTS: PCT <0.50 = Low risk of severe sepsis and/or septic shock. PCT >2.00 = High risk of severe sepsis and/or septic shock. Performed By: #### L AB17, [id number] ####Ceramic Mold Designer: JAQUELIN MO ([id number])[facility] DALY (SBHLAB)[address] [place] [address] Procalcitonin [Mass/Vol]on 0 11-26-2024 Interpretation and review of laboratory results Abnormal [facility] PCT <0.50 = Low risk of severe sepsis and/or septic shock. PCT >2.00 = High risk of severe sepsis and/or septic shock. [facility] RESPIRATORY PATHOGENS PANEL BY PCRon 11-26-2024 [...] Detected ORDER COMMENTS: Methodology: Multiplex PCR Normal [facility] Comment on above: Performed By: #### L [id number] ####Ceramic Mold Designer: ESAU SKINNER ([id number])[facility] (SAC[facility])[address] [place] [address] Respiratory pathogens DNA an d RNA panel BETO+non-probe (Nph)Ordered By: Betty Munguia on 11-26-2024 Adenovirus Not detected Not Detected [facility] B. pertussis DNA BETO+probe Ql (Unsp spec) Not detected Not Detected [facility] Bordetella parapertussis Not detected Not Detected [facility] Chlamydia pneumoniae Not detected Not Detected [facility] Coronavirus 229E Not detected Not Detected [facility] Coronavirus HKU1 Not detected Not Detected [facility] Coronavirus NL63 Not detected Not Detected [facility] Coronavirus OC43 Not detected Not Detected [facility] FLUAV RNA BETO+non-probe Ql (Nph) Not detected Not Detected [facility] FLUBV RNA BETO+non-probe Ql (Nph) Not detected Not Detected [facility] Human Metapneumovirus Not detected Not Detected [facility] Human Rhinovirus/Enteroviru s Not detected Not Detected [facility] Interpretation and review of laboratory results Normal [facility] Mycoplasma pneumoniae Not detected Not Detected [facility] Parainfluenza 1 Not detected Not Detected [facility] Parainfluenza 2 Not detected Not Detected [facility] Parainfluenza 3 Not detected Not Detected [facility] Parainfluenza 4 Not detected Not Detected [facility] Respiratory Syncytial Virus Not detected Not Detected [facility] SARS-CoV-2 (COVID-19) RNA BETO+non-probe Ql (Nph) Not detected Not Detected [facility] Methodology: Multiplex PCR [facility] VANCOMYCIN, AUC TIMED DOSING on 11-26-2024 VANCOMYCIN, AUC 19.8 ug/mL Normal [facility] Comment on above: Result Comment: ORDE R COMMENTS: Please draw random level at least >2 hours after the end of the last vancomycin infusion, or 30-minutes before next infusion. Toxicity is seen at concentrations >80-100 ug/mL Therapeutic (Peak) range: 20-40 Therapeutic (Trough) range: 5-10 Performed By: #### L [id number] #### Ceramic Mold Designer: JAQUELIN MO ([id number]) [facility] (SBHLAB) [address] Vancomycin trough [Mass/Vol] on 11-26-2024 Toxicity is seen at concentrations >80-100 ug/mL Therapeutic (Peak) range: 20-40 Therapeutic (Trough) range: 5-10 [facility] BLOOD CULTUREon 11-25-2024 Bacteria identified Cx Nom (Bld) BLOOD CULTURE Reference No growth at 5 days ORDER COMMENTS: Blood Collection Site: Right Hand [ S = SUSCEPTIBLE R = RESISTANT I = INTERMEDIATE S-DD = Susceptible-dose dependent NS = Non-susceptible NO = No Interpretation ] Normal [facility] Comment on above: Performed By: #### L [id number] ####Ceramic Mold Designer: ESAU SKINNER ([id number])[facility] ([facility])[address] [place] [address] Bacteria identified Cx Nom (Bld) BLOOD CULTURE Reference No growth at 5 days ORDER COMMENTS: Blood Collection Site: Left Hand [ S = SUSCEPTIBLE R = RESISTANT I = INTERMEDIATE S-DD = Susceptible-dose dependent NS = Non-susceptible NO = No Interpretation ] [facility] Comment on above: Performed By: #### L [id number] ####Ceramic Mold Designer: ESAU SKINNER ([id number])[facility] ([facility])[address] [place] [address] CBC W Auto Differential pane l (Bld)on 11-25-2024 Basophils (Bld) [#/Vol] 0 10*3/uL 0.0 - 0.2 10*3/uL [facility] Basophils/100 WBC (Bld) 0.1 % 0.0 - 2.0 % [facility] Eosinophils (Bld) [#/Vol] 0.1 10*3/uL 0.0 - 0.5 10*3/uL [facility] Eosinophils/100 WBC (Bld) 1.6 % 0.0 - 6.0 % [facility] Erythrocyte distribution width (RBC) [Ratio] 13 % 11.5 - 15.0 % [facility] Hematocrit (Bld) [Volume fraction] 28.8 % Low 40.0 - 52.0 % [facility] Hemoglobin (Bld) [Mass/Vol] 9.2 g/dL Low 13.0 - 18.0 g/dL [facility] Immature granulocytes (Bld) [#/Vol] 0.1 10*3/uL High NINF - 0.1 10*3/uL [facility] Immature granulocytes/100 WBC (Bld) 0.7 % 0.0 - 2.0 % [facility] Interpretation and review of laboratory results Abnormal [facility] Lymphocytes (Bld) [#/Vol] 1 10*3/uL 1.0 - 4.3 10*3/uL [facility] Lymphocytes/100 WBC (Bld) 15 % 15.0 - 45.0 % [facility] MCH (RBC) [Entitic mass] 29.2 pg 26.0 - 34.0 pg [facility] MCHC (RBC) [Mass/Vol] 31.9 % 30.5 - 36.0 % [facility] MCV (RBC) [Entitic vol] 91.4 fL 77.0 - 99.0 fL [facility] Monocytes (Bld) [#/Vol] 0.7 10*3/uL 0.0 - 0.9 10*3/uL [facility] Monocytes/100 WBC (Bld) 10.1 % 5.0 - 13.0 % [facility] Neutrophils (Bld) [#/Vol] 5 10*3/uL 1.8 - 7.5 10*3/uL [facility] Neutrophils/100 WBC (Bld) 72.5 % 38.0 - 82.0 % [facility] Nucleated RBC/100 WBC (Bld) [Ratio] 0 % [facility] [employer] Platelet mean volume (Bld) [Entitic vol] 9.2 fL 9.0 - 12.7 fL [facility] Platelets (Bld) [#/Vol] 220 10*3/uL 140 - 440 10*3/uL [facility] RBC (Bld) [#/Vol] 3.15 10*6/uL Low 4.40 - 5.9 0 10*6/uL [facility] WBC (Bld) [#/Vol] 6.9 10*3/uL 3.6 - 10.7 10*3/uL [facility] CBC WITH AUTO DIFFERENTIALon 11-25-2024 Basophils (Bld) [#/Vol] 0.0 10*3/uL Normal 0.0-0.2 [facility] Comment on above: Performed By: #### L [id number] ####Ceramic Mold Designer: JAQUELIN MO ([id number])[facility] (SBAB)[address] Basophils/100 WBC (Bld) 0.1 % Normal 0.0-2.0 [facility] Comment on above: Performed By: #### L [id number] ####Ceramic Mold Designer: JAQUELIN MO ([id number])[facility] (SBAB)[address] [place] [address] Eosinophils (Bld) [#/Vol] 0.1 10*3/uL Normal 0.0-0.5 [facility] Comment on above: Performed By: #### L [id number] ####Ceramic Mold Designer: JAQUELIN MO ([id number])[facility] ([facility])[address] [place] [address] Eosinophils/100 WBC (Bld) 1.6 % Normal 0.0-6.0 [facility] Comment on above: Performed By: #### L [id number] ####Ceramic Mold Designer: JAQUELIN MO ([id number])[facility] ([facility])[address] [place] [address] Erythrocyte distribution width (RBC) [Ratio] 13.0 % Normal 11.5-15.0 [facility] Comment on above: Performed By: #### L [id number] ####Ceramic Mold Designer: JAQUELIN MO ([id number])[facility] ([facility])[address] [place] [address] Hematocrit (Bld) [Volume fraction] 28.8 % Low 40.0-52.0 [facility] Comment on above: Performed By: #### L [id number] ####Ceramic Mold Designer: JAQUELIN BROWNOliviaYOEL ([id number])[facility] ([facility])[address] Hemoglobin (Bld) [Mass/Vol] 9.2 g/dL Low 13.0-18.0 [facility] Comment on above: Performed By: #### L [id number] ####Ceramic Mold Designer: JAQUELIN RASCONYOEL ([id number])[facility] ([facility])[address] IMMATURE GRANS % 0.7 % Normal 0.0-2.0 [facility] Comment on above: Performed By: #### L [id number] ####Ceramic Mold Designer: JAQUELIN CHEPE ([id number])[facility] ([facility])[address] [place] [address] IMMATURE GRANS ABSOLUTE 0.1 10*3/uL High <0.1 [facility] Comment on above: Performed By: #### L [id number] ####Ceramic Mold Designer: JAQUELIN BROWNOliviaYOEL ([id number])[facility] ([facility])[address] [place] [address] Lymphocytes (Bld) [#/Vol] 1.0 10*3/uL Normal 1.0-4.3 [facility] Comment on above: Performed By: #### L [id number] ####Ceramic Mold Designer: JAQUELIN MO ([id number])[facility] ([facility])[address] Lymphocytes/100 WBC (Bld) 15.0 % Normal 15.0-45.0 [facility] Comment on above: Performed By: #### L [id number] ####Ceramic Mold Designer: JAQUELIN MO ([id number])[facility] ([facility])[address] [place] [address] MCH (RBC) [Entitic mass] 29.2 pg Normal 26.0-34.0 [facility] Comment on above: Performed By: #### L [id number] ####Ceramic Mold Designer: JAQUELIN RASCONYOEL ([id number])[facility] (SBHLAB)[address] MCHC 31.9 % Normal 30.5-36.0 [facility] Comment on above: Performed By: #### L [id number] ####Ceramic Mold Designer: JAQUELIN MO ([id number])[facility] [place] (SBHLAB)[address] MCV (RBC) [Entitic vol] 91.4 fL Normal 77.0-99.0 [facility] Comment on above: Performed By: #### L [id number] ####Ceramic Mold Designer: JAQUELIN RASCONYOEL ([id number])[facility] [place] (SBHLAB)[address] [place] [address] Monocytes (Bld) [#/Vol] 0.7 10*3/uL Normal 0.0-0.9 [facility] Comment on above: Performed By: #### L [id number] ####Ceramic Mold Designer: JAQUELIN RASCONYOEL ([id number])[facility] [place] (SBHLAB)[address] Monocytes/100 WBC (Bld) 10.1 % Normal 5.0-13.0 [facility] Comment on above: Performed By: #### L [id number] ####Ceramic Mold Designer: JAQUELIN MO ([id number])[facility] [place] (SBHLAB)[address] NEUTROPHILS ABSOLUTE 5.0 10*3/uL Normal 1.8-7.5 [facility] Comment on above: Performed By: #### L [id number] ####Ceramic Mold Designer: JAQUELIN MO ([id number])[facility] [place] (SBHLAB)[address] Neutrophils/100 WBC (Bld) 72.5 % Normal 38.0-82.0 [facility] Comment on above: Performed By: #### L [id number] ####Ceramic Mold Designer: JAQUELIN MO ([id number])[facility]ENTER[facility] (SBHLAB)[address] NRBC 0.0 /100 WBCs Normal 0.0-2.0 [facility] Comment on above: Performed By: #### L [id number] ####Ceramic Mold Designer: JAQUELIN BROWNBALAJI ([id number])[facility] (SBHLAB)[address] Platelet mean volume (Bld) [Entitic vol] 9.2 fL Normal 9.0-12.7 [facility] Comment on above: Performed By: #### L [id number] ####Ceramic Mold Designer: JAQUELIN BROWNBALAJI ([id number])[facility] (SBHLAB)[address] Platelets (Bld) [#/Vol] 220 10*3/uL Normal 140-440 [facility] Comment on above: Performed By: #### L [id number] ####Ceramic Mold Designer: JAQUELIN RASCONYOEL ([id number])[facility] (SBHLAB)[address] RBC (Bld) [#/Vol] 3.15 10*6/uL Low 4.40-5.90 [facility] Comment on above: Performed By: #### L [id number] ####Ceramic Mold Designer: JAQUELIN MO ([id number])[facility] (SBHLAB)[address] WBC (Bld) [#/Vol] 6.9 10*3/uL Normal 3.6-10.7 [facility] Comment on above: Performed By: #### L [id number] ####Ceramic Mold Designer: JAQUELIN MO ([id number])[facility] (SBHLAB)[address] COMPREHENSIVE METABOLIC PANE Tommie 11-25-2024 Albumin [Mass/Vol] 3.2 g/dL Low 3.4-4.8 [facility] Comment on above: Performed By: #### L AB17, [id number] ####Ceramic Mold Designer: JAQUELIN MO ([id number])[facility] (SBHLAB)[address] ALP [Catalytic activity/Vol] 100 U/L Normal 40-150 [facility] Comment on above: Performed By: #### L AB17, [id number] ####Ceramic Mold Designer: JAQUELIN MO ([id number])[facility] (SBHLAB)[address] ALT [Catalytic activity/Vol] 17 U/L Normal <40 [facility] Comment on above: Performed By: #### L AB17, [id number] ####Ceramic Mold Designer: JAQUELIN MO ([id number])[facility] LARSENN (SBHLAB)[address] Anion gap [Moles/Vol] 15 mmol/L High 3-13 [facility] Comment on above: Performed By: #### L AB17, [id number] ####Ceramic Mold Designer: JAQUELIN MO ([id number])[facility] [place] (SBHLAB)[address] AST [Catalytic activity/Vol] 19 U/L Normal <34 [facility] Comment on above: Performed By: #### L AB17, [id number] ####Ceramic Mold Designer: JAQUELIN MO ([id number])[facility] [place] (SBHLAB)[address] Bilirubin [Mass/Vol] 0.5 mg/dL Normal <1.2 [facility] Comment on above: Performed By: #### L AB17, [id number] ####Ceramic Mold Designer: JAQUELIN MO ([id number])[facility] [place] (SBHLAB)[address] Calcium [Mass/Vol] 9.1 mg/dL Normal 8.8-10.0 [facility] Comment on above: Performed By: #### L AB17, [id number] ####Ceramic Mold Designer: JAQUELIN MO ([id number])FELICITA LARSENN (SBHLAB)[address] [place] [address] [place] Chloride [Moles/Vol] 99 mmol/L Normal 98-107 [facility] Comment on above: Performed By: #### L AB17, [id number] ####Ceramic Mold Designer: JAQUELIN MO ([id number])[facility] [place] (SBHLAB)[address] [place] [address] [place] CO2 [Moles/Vol] 25 mmol/L Normal 23-31 [facility] Comment on above: Performed By: #### L AB17, [id number] ####Ceramic Mold Designer: JAQUELIN MO ([id number])[facility] [place] (SBHLAB)[address] Creatinine [Mass/Vol] 5.14 mg/dL High 0.72-1.25 [facility] Comment on above: Performed By: #### L AB17, [id number] ####Ceramic Mold Designer: JAQUELIN MO ([id number])[facility] L[facility]ENN (SBHLAB)[address] [place] [address] [place] GLOMERULAR FILTRATION RATE ML/MIN/1.73 SQ M.PREDICTED 11.8 mL/min/1.73m*2 Low >60.0 [facility] Comment on above: Result Comment: Calc ulation based on the Chronic Kidney Disease Epidemiology Collaboration (CKD-EPI) equation refit without adjustment for race Performed By: #### L AB17, [id number] ####Ceramic Mold Designer: JAQUELIN MO ([id number])[facility] [place] (SBHLAB)[address] [place] [address] [place] Glucose [Mass/Vol] 178 mg/dL High 82-115 [facility] Comment on above: Performed By: #### L AB17, [id number] ####Ceramic Mold Designer: JAQUELIN MO ([id number])[facility] [place] (SBHLAB)[address] [place] [address] [place] Potassium [Moles/Vol] 4.4 mmol/L Normal 3.5-5.1 [facility] Comment on above: Result Comment: [facility] potassium values may be up to 0.5 mmol/L lower than serum values. Performed By: #### L AB17, [id number] ####Ceramic Mold Designer: JAQUELIN MO ([id number])[facility] (SBHLAB)[address] Protein [Mass/Vol] 6.9 g/dL Normal 6.4-8.3 [facility] Comment on above: Performed By: #### L AB17, [id number] ####Ceramic Mold Designer: JAQUELIN MO ([id number])[facility] (SBHLAB)[address] Sodium [Moles/Vol] 139 mmol/L Normal 136-145 [facility] Comment on above: Performed By: #### L AB17, [id number] ####Ceramic Mold Designer: JAQUELIN MO ([id number])[facility] (SBHLAB)[address] Urea nitrogen [Mass/Vol] 49 mg/dL High 9-23 [facility] Comment on above: Performed By: #### L AB17, [id number] ####Ceramic Mold Designer: JAQUELIN MO ([id number])[facility] (SBHLAB)[address] [place] [address] COVID-19, Flu A/B, and RSV C omboon 11-25-2024 Interpretation and review of laboratory results Normal [facility] Comprehensive metabolic 1998 panelon 11-25-2024 Albumin [Mass/Vol] 3.2 g/dL Low 3.4 - 4.8 g/dL [facility] ALP [Catalytic activity/Vol] 100 U/L 40 - 150 U/L [facility] ALT [Catalytic activity/Vol] 17 U/L NINF - 40 U/L [facility] Anion gap [Moles/Vol] 15 mmol/L High 3 - 13 mmol/L [facility] AST [Catalytic activity/Vol] 19 U/L NINF - 34 U/L [facility] Bilirubin [Mass/Vol] 0.5 mg/dL NINF - 1.2 mg/dL [facility] Calcium [Mass/Vol] 9.1 mg/dL 8.8 - 10. 0 mg/dL [facility] Chloride [Moles/Vol] 99 mmol/L 98 - 10 7 mmol/L [facility] CO2 [Moles/Vol] 25 mmol/L 23 - 31 mmol/L [facility] Creatinine [Mass/Vol] 5.14 mg/dL High 0.72 - 1.25 mg/dL [facility] GFR/1.73 sq M.predicted (S/P/Bld) [Vol rate/Area] 11.8 mL/min Low - PINF [facility] Comment on above: Calculation based on the Chronic Kidney Disease Epidemiology Collaboration (CKD-EPI) equation refit without adjustment for race Glucose [Mass/Vol] 178 mg/dL High 82 - 115 mg/dL [facility] Interpretation and review of laboratory results Abnormal [facility] Potassium [Moles/Vol] 4.4 mmol/L 3.5 - 5.1 mmol/L [facility] Comment on above: Plasma potassium reji ues may be up to 0.5 mmol/L lower than serum values. Protein [Mass/Vol] 6.9 g/dL 6.4 - 8.3 g/dL [facility] Sodium [Moles/Vol] 139 mmol/L 136 - 145 mmol/L [facility] Urea nitrogen [Mass/Vol] 49 mg/dL High 9 - 23 mg/dL [facility] Consulton 11-25-2024 Consult Pharmacy Managed Vancomycin Dosing Service Consult Note Consult Date: 11/25/24 Patient Name: José Manuel Ashton Allergies: Penicillins Age: 63 y.o. Sex: male Estimated body mass index is 35.87 kg/m? as calculated from the following: Height as of this encounter: 1.778 m (5' 10). Weight as of this encounter: 113 kg (250 lb). Lab Results Component Value Date CREATININE 5.14 (H) 11/25/2024 CREATININE 1.69 (H) 10/01/2023 BUN 49 (H) 11/25/2024 BUN 33 (H) 10/01/2023 WBC 6.9 11/25/2024 WBC 14.8 (H) 10/01/2023 Renal: []HD []CRRT []PD [x] CrCl 22.9 ml/min (if TARYN, no PEDIGREE RESEARCHER) Consulted By: Dr. Adames Vancomycin Level: []Trough [...] Time: 2:57 PM Thea BakerD (available on [employer]) [facility] ECG 12-LEADon 11-25-2024 ECG 12-LEAD IMPRESSION: Sinus [...] On 11-25-2024 14:52:25 EDT by Omid Adames [facility] ED Nursing Noteon 11-25-2024 ED Nursing Note Pt refused pain meds , not my dose at [facility] per pt [facility] ED Nursing Note Pt received dialysis today [facility] ED Provider Noteon ED Provider Note EMERGENCY DEPARTMENT ENCOUNTER Pt Name: José Manuel Ashton Birthdate 1960 Date of evaluation: 11/25/2024 ED Provider: Omid Adames MD CHIEF COMPLAINT Chief Complaint Patient presents with Altered Mental Status Pt presents to ED via EMS from [facility] for responding slowly and indicates he is [...] slow R wave progression versus old septal SD. There is no acute ST elevation or ST depression however. Intervals are within normal limits otherwise. There is no old EKG available for comparison. EKG was reviewed by myself. Physician EKG interpretation can be found in [facility] (Per Emergency Physician): Chest x-ray interpreted by me shows no obvious evid (more content not included)... Normal [facility] LACTIC ACID WITH REFLEXon Lactate [Moles/Vol] 0.7 mmol/L Normal 0.5-2.2 [facility] Comment on above: Performed By: #### L [id number] ####Ceramic Mold Designer: JAQUELIN MO ([id number])[facility] ([facility])[address] [place] [address] Lactate [Moles/Vol] 3.5 mmol/L High 0.5-2.2 [facility] Comment on above: Performed By: #### L [id number] ####Ceramic Mold Designer: JAQUELIN MO ([id number])[facility] ([facility])[address] [place] [address] Laboratory - Chemistry and C hemistry - challengeon 11-25-2024 Glucose [Mass/Vol] 187 mg/dL High 70 - 100 mg/dL [facility] Glucose [Mass/Vol] 167 mg/dL High 70 - 100 mg/dL [facility] Glucose [Mass/Vol] 119 mg/dL High 70 - 100 mg/dL [facility] Lactate [Moles/Vol] 0.7 mmol/L 0.5 - 2. 2 mmol/L [facility] Lactate [Moles/Vol] 3.5 mmol/L High 0.5 - 2. 2 mmol/L [facility] Magnesium [Mass/Vol] 2 mg/dL 1.6 - 2 .6 mg/dL [facility] Laboratory - Microbiology an d Antimicrobial susceptibilityon 11-25-2024 FLUAV RNA BETO+probe Ql (Resp) Not detected Not Detected [facility] FLUBV RNA BETO+probe Ql (Resp) Not detected Not Detected [facility] RSV RNA BETO+probe Ql (Resp) Not detected Not Detected [facility] SARS-CoV-2 (COVID-19) RNA BETO+probe Ql (Resp) Not detected Not Detected [facility] SARS-CoV-2 (COVID-19) RNA BETO+probe Ql (Unsp spec) Methodology: real-time, RT-PCR The SARS-CoV-2, Flu A/B, and RSV Combo assay is intended for in vitro diagnostic use under the FDA Emergency Use Authorization (EUA). This test has not been FDA cleared or approved. In compliance with this authorization, please visit www.fda.gov/media/632493/d ownload or www.fda.gov/media/558678/d ownload to access the applicable information sheets. [facility] MAGNESIUMon 11-25-2024 Magnesium [Mass/Vol] 2.0 mg/dL Normal 1.6-2.6 [facility] Comment on above: Result Comment: FLAVIO Trejo COMMENTS: Higher values can be expected in females during menses. Performed By: #### L AB17, [id number] ####Ceramic Mold Designer: JAQUELIN MO ([id number])[facility] [place] (SBHLAB)[address] [place] [address] Magnesium [Mass/Vol]on 11-25 Interpretation and review of laboratory results Normal [facility] Higher values can be expected in females during menses. [facility] No Panel Informationon 11-25 Interpretation and review of laboratory results Abnormal [facility] Performed by: Heatherantonette Daly [address] [place] [address] CLIA ID: [id number] [facility] Interpretation and review of laboratory results Abnormal [facility] Performed by: [facility] Daly [address] [place] [address] CLIA ID: [id number] [facility] Interpretation and review of laboratory results Abnormal [facility] Performed by: [facility] Daly [address] [place] [address] CLIA ID: [id number] [facility] Interpretation and review of laboratory results Normal [facility] P Mittie 23 degrees [facility] CA Interval 167 ms [facility] QRS Mittie 49 degrees [facility] QRSD Interval 110 ms [facility] QT Interval 405 ms [facility] QTC Interval 468 ms [facility] T Wave Mittie 62 degrees [facility] Sinus rhythm Low voltage, extremity leads EKG [...] On 11-25-2024 14:52:25 EDT by Omid Adames [facility] Interpretation and review of laboratory results Abnormal [facility] SARS-COV-2, FLU A/B, AND RSV COMBOon [...] In compliance with this authorization, please visit www.fda.gov/media/118771/d ownload or www.fda.gov/media/748572/d ownload to access the applicable information sheets. Normal [facility] Comment on above: Performed By: #### L [id number] ####Ceramic Mold Designer: JAQUELIN MO ([id number])[facility] ([facility])[address] [place] [address] Vital signson 11-25-2024 Heart rate 80 /min bpm [facility] XR Chest Single viewon 11-25 No focal consolidati on or pulmonary edema. Report Dictated on Electronically Signed By: Kj Duran MD Electronically Signed Date/Time: 11/25/2024 12:40 PM EDT [facility] Patient Name: JOSÉ MANUEL YOON : 1960 Exam Date/Time: 11/25/2024 [...] are normal. The osseous structures are unremarkable. [facility] Kj Duran MD - 11/25/2024 Patient [...] Electronically Signed Date/Time: 11/25/2024 12:40 PM EDT [facility] Radiology Study observation (narrative) [facility] XR Chest Single viewOrdered By: Kj Duran on 11-25-2024 [facility] Work Phone: Renal Profileon 10-14-2024 Albumin [Mass/Vol] 4.0 g/dL Normal 3.4-4.8 [facility] Comment on above: Order Comment: 409.1 Performed By: #### L [id number] #### [facility] [address] [place], [address] BUN/CRE 11.5 RATIO Normal 10-20 [facility] Comment on above: Order Comment: 409.1 Performed By: #### L [id number] #### [facility] [address] [place], [address] Calcium [Mass/Vol] 9.5 mg/dL Normal 7.6-11.0 [facility] Comment on above: Order Comment: 409.1 Performed By: #### L 500.3600 #### [facility] [address] [place], [address] Chloride [Moles/Vol] 101 mmol/L Normal 98-108 [facility] Comment on above: Order Comment: 409.1 Performed By: #### L 500.3600 #### [facility] [address] [place], [address] CO2 [Moles/Vol] 23.8 mmol/L Normal 21.0-32.0 [facility] Comment on above: Order Comment: 409.1 Performed By: #### L 500.3600 #### [facility] [address] [place], [address] Creatinine [Mass/Vol] 6.18 mg/dL High 0.70-1.20 [facility] Comment on above: Order Comment: 409.1 Performed By: #### L 500.3600 #### [facility] [address] [place], [address] GAP 17 High 5-15 [facility] Comment on above: Order Comment: 409.1 Performed By: #### L 500.3600 #### [facility] [address] [place], [address] GFR/1.73 sq M.predicted among non-blacks MDRD (S/P/Bld) [Vol rate/Area] 9 mL/min/{1.73_m2} Low >60 [facility] Comment on above: Order Comment: 409.1 Result Comment: mL/m in/1.73m2 CKD-EPI Creatinine Equation (2020) Performed By: #### L 500.3600 #### [facility] [address] [place], [address] Glucose [Mass/Vol] 140 mg/dL High 70-99 [facility] Comment on above: Order Comment: 409.1 Performed By: #### L 500.3600 #### [facility] [address] [place], [address] Phosphate [Mass/Vol] 4.9 mg/dL High 2.7-4.5 [facility] Comment on above: Order Comment: 409.1 Performed By: #### L 500.3600 #### [facility] [address] [place], [address] Potassium [Moles/Vol] 5.2 mmol/L High 3.3-5.1 [facility] Comment on above: Order Comment: 409.1 Performed By: #### L 500.3600 #### [facility] [address] [place], [address] Sodium [Moles/Vol] 142 mmol/L Normal 133-145 [facility] Comment on above: Order Comment: 409.1 Performed By: #### L 500.3600 #### [facility] [address] [place], [address] Urea nitrogen [Mass/Vol] 71 mg/dL High 4-19 [facility] Comment on above: Order Comment: 409.1 Performed By: #### L 500.3600 #### [facility] [address] [place], [address] Hemoglobin A1con 10-07-2024 HbA1c (Bld) [Mass fraction] 5.2 % Normal <=5.6 [facility] Comment on above: Order Comment: 409.1 Result Comment: Norm al < 5.7 % Prediabetic 5.7 - 6.4 % Diabetic >or= 6.5 % Please note range changes. Performed By: #### L 501.9985 #### [facility] [address] [place], [address] Anion gap in Serum or Plasma Ordered By: Brittaney Garcia on 08-28-2024 Anion gap [Moles/Vol] 16 mmol/L High 5-15 [facility] BUN/creatinine ratioOrdered By: Brittaney Garcia on 08-28-2024 Urea nitrogen/Creatinine [Mass ratio] 10.1 mg/mg 10- [facility] Basic Metabolic Profile (BMP )on 08-28-2024 BUN/CRE 10.1 RATIO Normal - [facility] Comment on above: Order Comment: 413-1 Performed By: #### L 500.2500, L100.0500 #### [facility] [address] [place], [address] Calcium [Mass/Vol] 9.3 mg/dL Normal 7.6-11.0 [facility] Comment on above: Order Comment: 413-1 Performed By: #### L 500.2500, L100.0500 #### [facility] [address] [place], [address] Chloride [Moles/Vol] 100 mmol/L Normal 98-108 [facility] Comment on above: Order Comment: 413-1 Performed By: #### L 500.2500, L100.0500 #### [facility] [address] [place], [address] CO2 [Moles/Vol] 24.3 mmol/L Normal 21.0-32.0 [facility] Comment on above: Order Comment: 413-1 Performed By: #### L 500.2500, L100.0500 #### [facility] [address] [place], [address] Creatinine [Mass/Vol] 5.39 mg/dL High 0.70-1.20 [facility] Comment on above: Order Comment: 413-1 Performed By: #### L 500.2500, L100.0500 #### [facility] [address] [place], [address] GAP 16 High 5-15 [facility] Comment on above: Order Comment: 413-1 Performed By: #### L 500.2500, L100.0500 #### [facility] [address] [place], [address] GFR/1.73 sq M.predicted among non-blacks MDRD (S/P/Bld) [Vol rate/Area] 11 mL/min/{1.73_m2} Low >60 [facility] Comment on above: Order Comment: 413-1 Result Comment: mL/m in/1.73m2 CKD-EPI Creatinine Equation (2020) Performed By: #### L 500.2500, L100.0500 #### [facility] [address] [place], [address] Glucose [Mass/Vol] 155 mg/dL High 70-99 [facility] Comment on above: Order Comment: 413-1 Performed By: #### L 500.2500, L100.0500 #### [facility] [address] [place], [address] Potassium [Moles/Vol] 4.6 mmol/L Normal 3.3-5.1 [facility] Comment on above: Order Comment: 413-1 Performed By: #### L 500.2500, L100.0500 #### [facility] [address] [place], [address] Sodium [Moles/Vol] 140 mmol/L Normal 133-145 [facility] Comment on above: Order Comment: 413-1 Performed By: #### L 500.2500, L100.0500 #### [facility] [address] [place], [address] Urea nitrogen [Mass/Vol] 54 mg/dL High 4-19 [facility] Comment on above: Order Comment: 413-1 Performed By: #### L 500.2500, L100.0500 #### [facility] [address] [place], [address] CBC-Complete Blood Cnt No Di ffon 08-28-2024 Erythrocyte distribution width (RBC) [Ratio] 14.4 % Normal 11.6-14.6 [facility] Comment on above: Order Comment: 413-1 Performed By: #### L 500.2500, L100.0500 #### [facility] [address] [place], [address] Hematocrit (Bld) [Volume fraction] 28.0 % Low 40-54 [facility] Comment on above: Order Comment: 413-1 Performed By: #### L 500.2500, L100.0500 #### [facility] [address] [place], [address] Hemoglobin (Bld) [Mass/Vol] 8.9 g/dL Low 13.0-16.5 [facility] Comment on above: Order Comment: 413-1 Performed By: #### L 500.2500, L100.0500 #### [facility] [address] [place], [address] MCH (RBC) [Entitic mass] 29.5 pg Normal 27.0-32.0 [facility] Comment on above: Order Comment: 413-1 Performed By: #### L 500.2500, L100.0500 #### [facility] [address] [place], [address] MCHC (RBC) [Mass/Vol] 31.8 g/dL Low 32-36 [facility] Comment on above: Order Comment: 413-1 Performed By: #### L 500.2500, L100.0500 #### [facility] [address] [place], [address] MCV (RBC) [Entitic vol] 92.7 fL Normal 80-94 [facility] Comment on above: Order Comment: 413-1 Performed By: #### L 500.2500, L100.0500 #### [facility] [address] [place], [address] Platelet mean volume (Bld) [Entitic vol] 9.4 fL Normal 6.2-12.0 [facility] Comment on above: Order Comment: 413-1 Performed By: #### L 500.2500, L100.0500 #### [facility] [address] [place], [address] Platelets (Bld) [#/Vol] 263 10*3/uL Normal 150-450 [facility] Comment on above: Order Comment: 413-1 Performed By: #### L 500.2500, L100.0500 #### [facility] [address] [place], [address] RBC (Bld) [#/Vol] 3.02 10*6/uL Low 4.6-6.2 [facility] Comment on above: Order Comment: 413-1 Performed By: #### L 500.2500, L100.0500 #### [facility] [address] [place], [address] RDW SD 49.1 fl High 35.1-43.9 [facility] Comment on above: Order Comment: 413-1 Performed By: #### L 500.2500, L100.0500 #### [facility] [address] [place], [address] WBC (Bld) [#/Vol] 6.7 10*3/uL Normal 4.4-11.0 [facility] Comment on above: Order Comment: 413-1 Performed By: #### L 500.2500, L100.0500 #### [facility] [address] [place], [address] Carbon dioxide, total [Moles /volume] in Central venous bloodOrdered By: Brittaney Garcia on 08-28-2024 CO2 [Moles/Vol] 24.3 mmol/L 21.0-32.0 [facility] Chloride assayOrdered By: Lambert Garcia on 08-28-2024 Chloride [Moles/Vol] 100 mmol/L 98-108 [facility] Erythrocyte distribution wid th ratioOrdered By: Brittaney Garcia on 08-28-2024 Erythrocyte distribution width (RBC) [Ratio] 14.4 % 11.6-14.6 [facility] Erythrocyte distribution wid th standard deviationOrdered By: Brittaney Garcia on 08-28-2024 Erythrocyte distribution width (RBC) [Ratio] 49.1 fl High 35.1-43.9 [facility] Glomerular filtration rate ( GFR) estimation/1.73 sq m using serum, plasma, or whole bOrdered By: Brittaney Garcia on 08-28-2024 GFR/1.73 sq M.predicted among non-blacks MDRD (S/P/Bld) [Vol rate/Area] 11 mL/min/{1.73_m2} Low >60 [facility] Comment on above: mL/min/1.73m2 CKD-EP I Creatinine Equation (2020) Hematocrit Auto (Bld) [Volum e fraction]Ordered By: Brittaney Garcia on 08-28-2024 Hematocrit (Bld) [Volume fraction] 28.0 % Low 40-54 [facility] Hemoglobin measurementOrdere d By: Brittaney Garcia on 08-28-2024 Hemoglobin (Bld) [Mass/Vol] 8.9 g/dL Low 13.0-16.5 [facility] MCV (mean corpuscular volume ) determinationOrdered By: Brittaney Garcia on 08-28-2024 MCV (RBC) [Entitic vol] 92.7 fL 80-94 [facility] Mean corpuscular hemoglobin (MCH) determinationOrdered By: Brittaney Garcia on 08-28-2024 MCH (RBC) [Entitic mass] 29.5 pg 27.0-32.0 [facility] Mean corpuscular hemoglobin concentration (MCHC) determinationOrdered By: Brittaney Garcia on 08-28-2024 MCHC (RBC) [Mass/Vol] 31.8 g/dL Low 32-36 [facility] Mean platelet volume determi nationOrdered By: Brittaney Garcia on 08-28-2024 Platelet mean volume (Bld) [Entitic vol] 9.4 fL 6.2-12.0 [facility] Platelet countOrdered By: Lambert Garcia on 08-28-2024 Platelets (Bld) [#/Vol] 263 10*3/uL 150-450 [facility] Potassium measurement (mass/ volume)Ordered By: Brittaney Garcia on 08-28-2024 Potassium (Unsp spec) [Mass/Vol] 4.6 mmol/L 3.3-5.1 [facility] RBC Auto (Bld) [#/Vol]Ordere d By: Brittaney Garcia on 08-28-2024 RBC (Bld) [#/Vol] 3.02 10*6/uL Low 4.6-6.2 [facility] Serum creatinine measurement (mass/volume)Ordered By: Brittaney Garcia on 08-28-2024 Creatinine [Mass/Vol] 5.39 mg/dL High 0.70-1.20 [facility] Serum glucose measurement (m ass/volume)Ordered By: Brittaney Garcia on 08-28-2024 Glucose [Mass/Vol] 155 mg/dL High 70-99 [facility] Serum or plasma calcium patt urement (mass/volume)Ordered By: Brittaney Garcia on 08-28-2024 Calcium [Mass/Vol] 9.3 mg/dL 7.6-11.0 [facility] Serum or plasma urea nitroge n measurement (mass/volume)Ordered By: Brittaney Garcia on 08-28-2024 Urea nitrogen [Mass/Vol] 54 mg/dL High 4-19 [facility] Sodium levelOrdered By: Jd Garcia on 08-28-2024 Sodium [Moles/Vol] 140 mmol/L 133-145 [facility] White blood cell (WBC) count Ordered By: Brittaney Garcia on 08-28-2024 WBC (Bld) [#/Vol] 6.7 10*3/uL 4.4-11.0 [facility] CASE MANAGEMon 07-24-2024 CASE MANAGEM Normal [facility] CASE MANAGEM Normal [facility] CASE MANAGEM Normal [facility] CBC panel Auto (Bld)on 07-24 Erythrocyte distribution width (RBC) [Ratio] 13.2 % Normal 11.5-15.0 [facility] Comment on above: Order Comment: Speci men Type: BLOOD SPECIMENOrdering Facility: [facility] Address: [address] [place] [address] Performed By: #### 5 8410-2 ####[facility] LABORATORYCLIA [id number] [address] Hematocrit (Bld) [Volume fraction] 26.9 % Low 39.0-51.0 [facility] Comment on above: Order Comment: Speci men Type: BLOOD SPECIMENOrdering Facility: [facility] Address: [address] [place] [address] Performed By: #### 5 8410-2 ####ADKINS LABORATORYCLIA [id number] [address] [place] Hemoglobin (Bld) [Mass/Vol] 8.8 g/dL Low 13.0-17.0 [facility] Comment on above: Order Comment: Speci men Type: BLOOD SPECIMENOrdering Facility: [facility] Address: [address] [place] [address] Performed By: #### 5 8410-2 ####ADKINS LABORATORYCLIA [id number] [place] [address] [place] MCH (RBC) [Entitic mass] 28.5 pg Normal 26.0-34.0 [facility] Comment on above: Order Comment: Speci men Type: BLOOD SPECIMENOrdering Facility: [facility] Address: [address] [place] [address] Performed By: #### 5 8410-2 ####ADKINS LABORATORYCLIA [id number] [address] [place] MCHC (RBC) [Mass/Vol] 32.7 g/dL Normal 30.5-36.0 [facility] Comment on above: Order Comment: Speci men Type: BLOOD SPECIMENOrdering Facility: [facility] Address: [address] [place] [address] Performed By: #### 5 8410-2 ####ADKINS LABORATORYCLIA [id number] [place] [address] [place] MCV (RBC) [Entitic vol] 87.1 fL Normal 80.0-100.0 [facility] Comment on above: Order Comment: Speci men Type: BLOOD SPECIMENOrdering Facility: [facility] Address: [address] [place] [address] Performed By: #### 5 8410-2 ####ADKINS LABORATORYCLIA [id number] [place] [address] [place] Nucleated RBC (Bld) [#/Vol] 10*3/uL Normal <0.01 [facility] Comment on above: Order Comment: Speci men Type: BLOOD SPECIMENOrdering Facility: [facility] Address: [address] [place] [address] Performed By: #### 5 8410-2 ####ADKINS LABORATORYCLIA [id number] [place] [address] [place] Platelet mean volume (Bld) [Entitic vol] 9.2 fL Normal 9.0-12.7 [facility] Comment on above: Order Comment: Speci men Type: BLOOD SPECIMENOrdering Facility: [facility] Address: [address] [place] [address] Performed By: #### 5 8410-2 ####ADKINS LABORATORYCLIA [id number] [place] [address] [place] Platelets (Bld) [#/Vol] 168 10*3/uL Normal 150-400 [facility] Comment on above: Order Comment: Speci men Type: BLOOD SPECIMENOrdering Facility: [facility] Address: [address] [place] [address] Performed By: #### 5 8410-2 ####ADKINS LABORATORYCLIA [id number] [place] [address] [place] RBC (Bld) [#/Vol] 3.09 10*6/uL Low 4.20-6.00 [place] Comment on above: Order Comment: Speci men Type: BLOOD SPECIMENOrdering Facility: [facility] Address: [address] [place] [id number] Performed By: #### 5 8410-2 ####HARROLD LABORATORYCLIA [id number] [place] [address] [place] WBC (Bld) [#/Vol] 6.64 10*3/uL Normal 3.70-11.00 [place] Comment on above: Order Comment: Speci men Type: BLOOD SPECIMENOrdering Facility: [facility] Address: [address] [place] [address] Performed By: #### 5 8410-2 ####HARROLD LABORATORYCLIA [id number] [address] [facility] CNDSon 07-24-2024 CNDS Normal [facility] 07-24-2024 CNPN Telephone (HCSIND) -- JOSÉ MANUEL ASHTON ([id number]) 1960 M T Date Time Provider Department 07/24/24 CLAUDIA CHOW [...] AUTOSHIELD DUO PEN NEEDLE) 30 gauge x 3/16 ndle 1 Applicator four times daily. Facility-Administered [...] managed by this patient by: PATIENT Nusrat Joshua, OA 11/08/[address] Scott: Patient to continue to use the SSI only, no regular scheduled Insulin dosing at this time. Patient's sister has been notified and verbalizes understanding. Richard Hinds RN Problem List As Of [...] 01/17/2022 H/O (more content not included)... Normal [facility] CONSULT PROGon 07-24-2024 CONSULT PROG Normal [facility] Comprehensive metabolic 2000 panelon 07-24-2024 Albumin [Mass/Vol] 3.2 g/dL Low 3.9-4.9 [facility] Comment on above: Order Comment: Speci men Type: BLOOD SPECIMENOrdering Facility: [facility] Address: [address] [place] [address] Performed By: #### 5 0190-8, 2275-07, ####HARROLD LABORATORYCLIA [id number] [place] [address] [place] ALP [Catalytic activity/Vol] 107 U/L Normal 38-113 [facility] Comment on above: Order Comment: Speci men Type: BLOOD SPECIMENOrdering Facility: [facility] Address: [facility] [place] [id number] Performed By: #### 5 0190-8, 2275-, 14996-2 ####HARROLD LABORATORYCLIA [id number] [place] [id number] [place] ALT [Catalytic activity/Vol] 17 U/L Normal 10-54 [facility] Comment on above: Order Comment: Speci men Type: BLOOD SPECIMENOrdering Facility: [facility] Address: [address] [place] [id number] Performed By: #### 5 0190-8, 2275-4, 16581-4 ####ADKINS LABORATORYCLIA [id number] [place] [address] [place] Anion gap [Moles/Vol] 13 mmol/L Normal 8-15 [facility] Comment on above: Order Comment: Speci men Type: BLOOD SPECIMENOrdering Facility: [facility] Address: [address] [place] [address] Performed By: #### 5 0190-8, 2275-07, 20880-8 ####ADKINS LABORATORYCLIA [id number] [address] [place] AST [Catalytic activity/Vol] 16 U/L Normal 14-40 [facility] Comment on above: Order Comment: Speci men Type: BLOOD SPECIMENOrdering Facility: [facility] Address: [address] [place] [address] Performed By: #### 5 0190-8, 2275-07, 72855-9 ####ADKINS LABORATORYCLIA [id number] [address] [place] Bilirubin [Mass/Vol] 0.2 mg/dL Normal 0.2-1.3 [facility] Comment on above: Order Comment: Speci men Type: BLOOD SPECIMENOrdering Facility: [facility] Address: [address] [place] [address] Performed By: #### 5 0190-8, 4, 11548-1 ####ADKINS LABORATORYCLIA [id number] [address] [place] Calcium [Mass/Vol] 8.7 mg/dL Normal 8.5-10.2 [facility] Comment on above: Order Comment: Speci men Type: BLOOD SPECIMENOrdering Facility: [facility] Address: [address] [place] [address] Performed By: #### 5 0190-8, 6-4, 15722-2 ####HARROLD LABORATORYCLIA [id number] [place] [address] [place] Chloride [Moles/Vol] 99 mmol/L Normal 98-107 [facility] Comment on above: Order Comment: Luz vaughan Type: BLOOD SPECIMENOrdering Facility: [facility] Address: [address] [place] [address] Performed By: #### 5 0190-8, 6-4, 19567-5 ####HARROLD LABORATORYCLIA [id number] [place] [address] [place] CO2 [Moles/Vol] 26 mmol/L Normal 22-30 [facility] Comment on above: Order Comment: Luz vaughan Type: BLOOD SPECIMENOrdering Facility: [facility] Address: [address] [place] [address] Performed By: #### 5 0190-8, 2275-4, 10805-2 ####HARROLD LABORATORYCLIA [id number] [place] [address] [place] Creatinine [Mass/Vol] 4.85 mg/dL High 0.73-1.22 [facility] Comment on above: Order Comment: Luz vaughan Type: BLOOD SPECIMENOrdering Facility: [facility] Address: [address] [place] [address] Performed By: #### 5 0190-8, 2275-4, 85431-6 ####HARROLD LABORATORYCLIA [id number] [address] [facility] Creatinine and Glomerular filtration rate.predicted panel (S/P/Bld) 13 mL/min/1.73m??? Low >=60 [facility] Comment on above: Order Comment: Luz vaughan Type: BLOOD SPECIMENOrdering Facility: [facility] Address: [address] [place] [address] Result Comment: Breanne mated Glomerular Filtration Rate [...] GFR. Performed By: #### 5 0190-8, 6-4, 73045-1 ####HARROLD LABORATORYCLIA [id number] [place] [address] [place] Glucose [Mass/Vol] 153 mg/dL High 74-99 [facility] Comment on above: Order Comment: Luz vaughan Type: BLOOD SPECIMENOrdering Facility: [facility] Address: [address] [place] [address] Result Comment: The [place] [employer] (ADA) provides guidance for cutoff [...] Standards of Medical Care in Diabetes 2016, [place] [employer]. Diabetes Care. 2016.39(Suppl 1). Performed By: #### 5 0190-8, 2275-, 26536-9 ####HARROLD LABORATORYCLIA [id number] [place] [address] [place] Potassium [Moles/Vol] 4.7 mmol/L Normal 3.7-5.1 [facility] Comment on above: Order Comment: Luz vaughan Type: BLOOD SPECIMENOrdering Facility: [facility] Address: [address] [place] [address] Performed By: #### 5 0190-8, 6-4, 01844-3 ####HARROLD LABORATORYCLIA [id number] [place] [address] [place] Protein [Mass/Vol] 6.2 g/dL Low 6.3-8.0 [facility] Comment on above: Order Comment: Luz vaughan Type: BLOOD SPECIMENOrdering Facility: [facility] Address: [address] [place] [address] Performed By: #### 5 0190-8, 2275-4, 50090-3 ####ADKINS LABORATORYCLIA [id number] [place] [address] [place] Sodium [Moles/Vol] 138 mmol/L Normal 136-144 [facility] Comment on above: Order Comment: Speci men Type: BLOOD SPECIMENOrdering Facility: [facility] Address: [facility] [place] [address] Performed By: #### 5 0190-8, 2275-07, 74340-3 ####HARROLD LABORATORYCLIA [id number] [place] [address] [place] Urea nitrogen [Mass/Vol] 48 mg/dL High 9-24 [facility] Comment on above: Order Comment: Speci men Type: BLOOD SPECIMENOrdering Facility: [facility] Address: [facility] [place] [address] Performed By: #### 5 0190-8, 2275-07, ####HARROLD LABORATORYCLIA [id number] [place] [address] [place] Ferritin SerPl-mCncon 2024 Ferritin [Mass/Vol] 377.6 ng/mL Normal 30.3-565.7 [facility] Comment on above: Order Comment: Speci men Type: BLOOD SPECIMENOrdering Facility: [facility] Address: [facility] [place] [address] Performed By: #### 5 0190-8, 2275-07, 40352-9 ####HARROLD LABORATORYCLIA [id number] [place] [address] [place] Iron and Iron binding capaci ty panelon 07-24-2024 Iron [Mass/Vol] 31 ug/dL Low 41-186 [facility] Comment on above: Order Comment: Speci men Type: BLOOD SPECIMENOrdering Facility: [facility] Address: [facility] [place] [address] Performed By: #### 5 0190-8, 2275-07, 14195-3 ####HARROLD LABORATORYCLIA [id number] [address] [place] Iron binding capacity [Mass/Vol] 140 ug/dL Low 232-386 [facility] Comment on above: Order Comment: Speci men Type: BLOOD SPECIMENOrdering Facility: [facility] Address: [address] [place] [address] Performed By: #### 5 0190-8, 2276-4, 93252-5 ####ADKINS LABORATORYCLIA [id number] [place] [id number] [place] Iron/TIBC [Molar ratio] 22.1 % Normal 15.0-57.0 [facility] Comment on above: Order Comment: Speci men Type: BLOOD SPECIMENOrdering Facility: [facility] Address: [address] [place] [address] Performed By: #### 5 0190-8, 6-4, 47787-2 ####HARROLD LABORATORYCLIA [id number] [address] [place] NURSING PROGon 07-24-2024 NURSING PROG Normal [facility] NUTRITIONon 07-24-2024 NUTRITION Normal [facility] CASE MANAGEMon 07-23-2024 CASE MANAGEM Normal [facility] CASE MANAGEM Normal [facility] CBC panel Auto (Bld)on 07-23 Erythrocyte distribution width (RBC) [Ratio] 13.1 % Normal 11.5-15.0 [facility] Comment on above: Order Comment: Speci men Type: BLOOD SPECIMENOrdering Facility: [facility] Address: [address] [place] [address] Performed By: #### 5 8410-2 ####ADKINS LABORATORYCLIA [id number] [place] [id number] [facility] Hematocrit (Bld) [Volume fraction] 27.2 % Low 39.0-51.0 [facility] Comment on above: Order Comment: Speci men Type: BLOOD SPECIMENOrdering Facility: [facility] Address: [address] [place] [address] Performed By: #### 5 8410-2 ####ADKINS LABORATORYCLIA [id number] [address] [place] Hemoglobin (Bld) [Mass/Vol] 8.9 g/dL Low 13.0-17.0 [facility] Comment on above: Order Comment: Speci men Type: BLOOD SPECIMENOrdering Facility: [facility] Address: [address] [place] [address] Performed By: #### 5 8410-2 ####ADKINS LABORATORYCLIA [id number] [address] MCH (RBC) [Entitic mass] 28.5 pg Normal 26.0-34.0 [facility] Comment on above: Order Comment: Speci men Type: BLOOD SPECIMENOrdering Facility: [facility] Address: [address] [place] [address] Performed By: #### 5 8410-2 ####ADKINS LABORATORYCLIA [id number] [address] MCHC (RBC) [Mass/Vol] 32.7 g/dL Normal 30.5-36.0 [facility] Comment on above: Order Comment: Speci men Type: BLOOD SPECIMENOrdering Facility: [facility] Address: [address] [place] [address] Performed By: #### 5 8410-2 ####ADKINS LABORATORYCLIA [id number] [address] MCV (RBC) [Entitic vol] 87.2 fL Normal 80.0-100.0 [facility] Comment on above: Order Comment: Speci men Type: BLOOD SPECIMENOrdering Facility: [facility] Address: [address] [place] [address] Performed By: #### 5 8410-2 ####ADKINS LABORATORYCLIA [id number] [address] Nucleated RBC (Bld) [#/Vol] 10*3/uL Normal <0.01 [facility] Comment on above: Order Comment: Speci men Type: BLOOD SPECIMENOrdering Facility: [facility] Address: [address] [place] [address] Performed By: #### 5 8410-2 ####ADKINS LABORATORYCLIA [id number] [place] [address] [place] Platelet mean volume (Bld) [Entitic vol] 9.5 fL Normal 9.0-12.7 [facility] Comment on above: Order Comment: Speci men Type: BLOOD SPECIMENOrdering Facility: [facility] Address: [address] [place] [address] Performed By: #### 5 8410-2 ####ADKINS LABORATORYCLIA [id number] [place] [address] [place] Platelets (Bld) [#/Vol] 146 10*3/uL Low 150-400 [facility] Comment on above: Order Comment: Speci men Type: BLOOD SPECIMENOrdering Facility: [facility] Address: [address] [place] [address] Performed By: #### 5 8410-2 ####HARROLD LABORATORYCLIA [id number] [place] [address] [place] RBC (Bld) [#/Vol] 3.12 10*6/uL Low 4.20-6.00 [place] Comment on above: Order Comment: Speci men Type: BLOOD SPECIMENOrdering Facility: [facility] Address: [address] [place] [address] Performed By: #### 5 8410-2 ####ADKINS LABORATORYCLIA [id number] [address] [place] WBC (Bld) [#/Vol] 4.90 10*3/uL Normal 3.70-11.00 [place] Comment on above: Order Comment: Speci men Type: BLOOD SPECIMENOrdering Facility: [facility] Address: [address] [place] [address] Performed By: #### 5 8410-2 ####ADKINS LABORATORYCLIA [id number] [place] [id number] [facility] [place] CONSULT PROGon 07-23-2024 CONSULT PROG Normal [facility] Comprehensive metabolic 2000 panelon 07-23-2024 Albumin [Mass/Vol] 3.0 g/dL Low 3.9-4.9 [facility] Comment on above: Order Comment: Speci men Type: BLOOD SPECIMENOrdering Facility: [facility] Address: [address] [place] [address] Performed By: #### 2 4323-8 ####ADIKNS LABORATORYCLIA [id number] [address] [place] ALP [Catalytic activity/Vol] 104 U/L Normal 38-113 [facility] Comment on above: Order Comment: Speci men Type: BLOOD SPECIMENOrdering Facility: [facility] Address: [address] [place] [address] Performed By: #### 2 4323-8 ####ADKINS LABORATORYCLIA [id number] [place] [address] [place] ALT [Catalytic activity/Vol] 13 U/L Normal 10-54 [facility] Comment on above: Order Comment: Speci men Type: BLOOD SPECIMENOrdering Facility: [facility] Address: [address] [place] [address] Performed By: #### 2 4323-8 ####ADKINS LABORATORYCLIA [id number] [place] [address] [place] Anion gap [Moles/Vol] 10 mmol/L Normal 8-15 [facility] Comment on above: Order Comment: Speci men Type: BLOOD SPECIMENOrdering Facility: [facility] Address: [address] [place] [address] Performed By: #### 2 4323-8 ####ADKINS LABORATORYCLIA [id number] [address] [place] AST [Catalytic activity/Vol] 16 U/L Normal 14-40 [facility] Comment on above: Order Comment: Speci men Type: BLOOD SPECIMENOrdering Facility: [facility] Address: [address] [place] [address] Performed By: #### 2 4323-8 ####ADKINS LABORATORYCLIA [id number] [place] [address] [place] Bilirubin [Mass/Vol] 0.3 mg/dL Normal 0.2-1.3 [facility] Comment on above: Order Comment: Speci men Type: BLOOD SPECIMENOrdering Facility: [facility] Address: [address] [place] [address] Performed By: #### 2 4323-8 ####ADKINS LABORATORYCLIA [id number] [place] [address] [place] Calcium [Mass/Vol] 8.3 mg/dL Low 8.5-10.2 [facility] Comment on above: Order Comment: Speci men Type: BLOOD SPECIMENOrdering Facility: [facility] Address: [address] [place] [address] Performed By: #### 2 4323-8 ####ADKINS LABORATORYCLIA [id number] [place] [address] [place] Chloride [Moles/Vol] 98 mmol/L Normal 98-107 [facility] Comment on above: Order Comment: Speci men Type: BLOOD SPECIMENOrdering Facility: [facility] Address: [address] [place] [address] Performed By: #### 2 4323-8 ####ADKINS LABORATORYCLIA [id number] [place] [address] [place] CO2 [Moles/Vol] 28 mmol/L Normal 22-30 [facility] Comment on above: Order Comment: Speci men Type: BLOOD SPECIMENOrdering Facility: [facility] Address: [address] [place] [address] Performed By: #### 2 4323-8 ####ADKINS LABORATORYCLIA [id number] [place] [address] [place] Creatinine [Mass/Vol] 3.84 mg/dL High 0.73-1.22 [facility] Comment on above: Order Comment: Speci men Type: BLOOD SPECIMENOrdering Facility: [facility] Address: [address] [place] [address] Performed By: #### 2 4323-8 ####ADKINS LABORATORYCLIA [id number] [address] [place] Creatinine and Glomerular filtration rate.predicted panel (S/P/Bld) 17 mL/min/1.73m??? Low >=60 [facility] Comment on above: Order Comment: Speci men Type: BLOOD SPECIMENOrdering Facility: [facility] Address: [address] [place] [address] Result Comment: Breanne mated Glomerular Filtration Rate [...] actual GFR. Performed By: #### 2 4323-8 ####HARROLD LABORATORYCLIA [id number] [place] [id number] [place] Glucose [Mass/Vol] 153 mg/dL High 74-99 [facility] Comment on above: Order Comment: Luz vaughan Type: BLOOD SPECIMENOrdering Facility: [facility] Address: [address] [place] [address] Result Comment: The [place] Diabetes [employer] (ADA) provides guidance for cutoff [...] Standards of Medical Care in Diabetes 2016, [place] [employer]. Diabetes Care. 2016.39(Suppl 1). Performed By: #### 2 4323-8 ####HARROLD LABORATORYCLIA [id number] [place] [address] [place] Potassium [Moles/Vol] 4.2 mmol/L Normal 3.7-5.1 [facility] Comment on above: Order Comment: Luz vaughan Type: BLOOD SPECIMENOrdering Facility: [facility] Address: [address] [place] [id number] Performed By: #### 2 4323-8 ####HARROLD LABORATORYCLIA [id number] [place] [address] [place] Protein [Mass/Vol] 6.1 g/dL Low 6.3-8.0 [facility] Comment on above: Order Comment: Speci men Type: BLOOD SPECIMENOrdering Facility: [facility] Address: [address] [place] [address] Performed By: #### 2 4323-8 ####ADKINS LABORATORYCLIA [id number] [place] [address] [place] Sodium [Moles/Vol] 136 mmol/L Normal 136-144 [facility] Comment on above: Order Comment: Speci men Type: BLOOD SPECIMENOrdering Facility: [facility] Address: [address] [place] [address] Performed By: #### 2 4323-8 ####ADKINS LABORATORYCLIA [id number] [place] [address] [place] Urea nitrogen [Mass/Vol] 31 mg/dL High 9-24 [facility] Comment on above: Order Comment: Speci men Type: BLOOD SPECIMENOrdering Facility: [facility] Address: [address] [place] [address] Performed By: #### 2 4323-8 ####ADKINS LABORATORYCLIA [id number] [place] [address] [place] THERAPY NTon 07-23-2024 THERAPY NT Normal [facility] THERAPY NT Normal [facility] THERAPY NT Normal [facility] Urinalysis complete panel (U )on 07-23-2024 Bilirubin Ql (U) Negative Normal Negative [facility] Comment on above: Order Comment: Speci men Type: URINE SPECIMENOrdering Facility: [facility] Address: [address] [place] [address] Performed By: #### 2 4356-8 ####ADKINS LABORATORYCLIA [id number] [address] [place] Clarity (Unsp spec) Slightly Cloudy Abnormal Clear [facility] Comment on above: Order Comment: Speci men Type: URINE SPECIMENOrdering Facility: [facility] Address: [address] [place] [address] Performed By: #### 2 4356-8 ####ADKINS LABORATORYCLIA [id number] [place] [address] [place] [facility] Color (U) Yellow Normal Yellow [facility] Comment on above: Order Comment: Speci men Type: URINE SPECIMENOrdering Facility: [facility] Address: [address] [place] [address] Performed By: #### 2 4356-8 ####ADKINS LABORATORYCLIA [id number] [place] [address] [facility] [place] Glucose Test strip (U) [Mass/Vol] 1+ Abnormal Negative [facility] Comment on above: Order Comment: Speci men Type: URINE SPECIMENOrdering Facility: [facility] Address: [address] [place] [address] Performed By: #### 2 4356-8 ####ADKINS LABORATORYCLIA [id number] [address] [place] Granular casts (Urine sed) [#/Area] 1-3 /LPF Abnormal 0 /LPF [facility] Comment on above: Order Comment: Speci men Type: URINE SPECIMENOrdering Facility: [facility] Address: [address] [place] [address] Performed By: #### 2 4356-8 ####[facility] LABORATORYCLIA [id number] [address] [place] Hemoglobin Ql (U) Negative Normal Negative [facility] Comment on above: Order Comment: Speci men Type: URINE SPECIMENOrdering Facility: [facility] Address: [address] [place] [address] Performed By: #### 2 4356-8 ####[facility] LABORATORYCLIA [id number] [place] [address] [place] Hyaline casts (Urine sed) [#/Area] 1-3 /LPF Abnormal 0 /LPF [facility] Comment on above: Order Comment: Speci men Type: URINE SPECIMENOrdering Facility: [facility] Address: [address] [place] [address] Performed By: #### 2 4356-8 ####[facility] LABORATORYCLIA [id number] [place] [address] [facility] [place] Ketones Ql (U) Negative Normal Negative [facility] Comment on above: Order Comment: Speci men Type: URINE SPECIMENOrdering Facility: [facility] Address: [address] [place] [address] Performed By: #### 2 4356-8 ####[facility] LABORATORYCLIA [id number] [place] [address] [place] Leukocyte esterase Test strip Ql (U) Negative Normal Negative [facility] Comment on above: Order Comment: Speci men Type: URINE SPECIMENOrdering Facility: [facility] Address: [address] [place] [address] Performed By: #### 2 4356-8 ####[facility] LABORATORYCLIA [id number] [place] [address] [place] Nitrite Ql (U) Negative Normal Negative [facility] Comment on above: Order Comment: Speci men Type: URINE SPECIMENOrdering Facility: [facility] Address: [address] [place] [address] Performed By: #### 2 4356-8 ####[facility] LABORATORYCLIA [id number] [place] [address] [place] pH (U) 6.0 [pH] Normal 5.0-8.0 [facility] Comment on above: Order Comment: Speci men Type: URINE SPECIMENOrdering Facility: [facility] Address: [address] [place] [address] Performed By: #### 2 4356-8 ####[facility] LABORATORYCLIA [id number] [place] [address] [place] Protein (U) [Mass/Vol] 3+ Abnormal Negative [facility] Comment on above: Order Comment: Speci men Type: URINE SPECIMENOrdering Facility: [facility] Address: [address] [place] [address] Performed By: #### 2 4356-8 ####[facility] LABORATORYCLIA [id number] [place] [address] [place] RBC LM.HPF (Urine sed) [#/Area] 0-3 /HPF Normal 0-3 /HPF [facility] Comment on above: Order Comment: Speci men Type: URINE SPECIMENOrdering Facility: [facility] Address: [address] [place] [address] Performed By: #### 2 4356-8 ####[facility] LABORATORYCLIA [id number] [address] Specific gravity (U) [Rel density] 1.020 Normal 1.005-1.030 [facility] Comment on above: Order Comment: Speci men Type: URINE SPECIMENOrdering Facility: [facility] Address: [address] [place] [address] Performed By: #### 2 4356-8 ####[facility] LABORATORYCLIA [id number] [address] Urobilinogen Ql (U) 0.2 EU/dL Normal 0.2-1.0 EU/dL [facility] Comment on above: Order Comment: Speci men Type: URINE SPECIMENOrdering Facility: [facility] Address: [address] [place] [address] Performed By: #### 2 4356-8 ####[facility] LABORATORYCLIA [id number] [address] WBC LM.HPF (Urine sed) [#/Area] 0-5 /HPF Normal 0-5 /HPF [facility] Comment on above: Order Comment: Speci men Type: URINE SPECIMENOrdering Facility: [facility] Address: [address] [place] [address] Performed By: #### 2 4356-8 ####[facility] LABORATORYCLIA [id number] [address] CASE MANAGEMon 07-22-2024 CASE MANAGEM Normal [facility] CBC panel Auto (Bld)on 07-22 Erythrocyte distribution width (RBC) [Ratio] 13.1 % Normal 11.5-15.0 [facility] Comment on above: Order Comment: Speci men Type: BLOOD SPECIMENOrdering Facility: [facility] Address: [address] [place] [address] Performed By: #### 5 8410-2 ####[facility] LABORATORYCLIA [id number] [address] Hematocrit (Bld) [Volume fraction] 27.0 % Low 39.0-51.0 [facility] Comment on above: Order Comment: Speci men Type: BLOOD SPECIMENOrdering Facility: [facility] Address: [address] [place] [address] Performed By: #### 5 8410-2 ####[facility] LABORATORYCLIA [id number] [address] [place] Hemoglobin (Bld) [Mass/Vol] 9.0 g/dL Low 13.0-17.0 [facility] Comment on above: Order Comment: Speci men Type: BLOOD SPECIMENOrdering Facility: [facility] Address: [address] [place] [address] Performed By: #### 5 8410-2 ####[facility] LABORATORYCLIA [id number] [address] MCH (RBC) [Entitic mass] 29.0 pg Normal 26.0-34.0 [facility] Comment on above: Order Comment: Speci men Type: BLOOD SPECIMENOrdering Facility: [facility] Address: [address] [place] [address] Performed By: #### 5 8410-2 ####[facility] LABORATORYCLIA [id number] [address] MCHC (RBC) [Mass/Vol] 33.3 g/dL Normal 30.5-36.0 [facility] Comment on above: Order Comment: Speci men Type: BLOOD SPECIMENOrdering Facility: [facility] Address: [address] [place] [address] Performed By: #### 5 8410-2 ####[facility] LABORATORYCLIA [id number] [address] MCV (RBC) [Entitic vol] 87.1 fL Normal 80.0-100.0 [facility] Comment on above: Order Comment: Speci men Type: BLOOD SPECIMENOrdering Facility: [facility] Address: [address] [place] [address] Performed By: #### 5 8410-2 ####[facility] LABORATORYCLIA [id number] [place] [address] [place] Nucleated RBC (Bld) [#/Vol] 10*3/uL Normal <0.01 [facility] Comment on above: Order Comment: Speci men Type: BLOOD SPECIMENOrdering Facility: [facility] Address: [address] [place] [address] Performed By: #### 5 8410-2 ####[facility] LABORATORYCLIA [id number] [place] [address] [place] Platelet mean volume (Bld) [Entitic vol] 9.0 fL Normal 9.0-12.7 [facility] Comment on above: Order Comment: Speci men Type: BLOOD SPECIMENOrdering Facility: [facility] Address: [address] [place] [address] Performed By: #### 5 8410-2 ####[facility] LABORATORYCLIA [id number] [address] [place] Platelets (Bld) [#/Vol] 147 10*3/uL Low 150-400 [facility] Comment on above: Order Comment: Speci men Type: BLOOD SPECIMENOrdering Facility: [facility] Address: [address] [place] [address] Performed By: #### 5 8410-2 ####[facility] LABORATORYCLIA [id number] [address] [place] RBC (Bld) [#/Vol] 3.10 10*6/uL Low 4.20-6.00 [place] Comment on above: Order Comment: Speci men Type: BLOOD SPECIMENOrdering Facility: [facility] Address: [address] [place] [address] Performed By: #### 5 8410-2 ####[facility] LABORATORYCLIA [id number] [address] [place] WBC (Bld) [#/Vol] 4.92 10*3/uL Normal 3.70-11.00 [place] Comment on above: Order Comment: Speci men Type: BLOOD SPECIMENOrdering Facility: [facility] Address: [address] [place] [address] Performed By: #### 5 8410-2 ####[facility] LABORATORYCLIA [id number] [place] [address] [place] CONSULT PROGon 07-22-2024 CONSULT PROG Normal [facility] Comprehensive metabolic 2000 panelon 07-22-2024 Albumin [Mass/Vol] 2.9 g/dL Low 3.9-4.9 [facility] Comment on above: Order Comment: Speci men Type: BLOOD SPECIMENOrdering Facility: [facility] Address: [address] [place] [address] Performed By: #### 2 4323-8 ####[facility] LABORATORYCLIA [id number] [place] [address] [place] ALP [Catalytic activity/Vol] 102 U/L Normal 38-113 [facility] Comment on above: Order Comment: Speci men Type: BLOOD SPECIMENOrdering Facility: [facility] Address: [address] [place] [address] Performed By: #### 2 4323-8 ####[facility] LABORATORYCLIA [id number] [address] [place] ALT [Catalytic activity/Vol] 12 U/L Normal 10-54 [facility] Comment on above: Order Comment: Speci men Type: BLOOD SPECIMENOrdering Facility: [facility] Address: [address] [place] [address] Performed By: #### 2 4323-8 ####[facility] LABORATORYCLIA [id number] [place] [address] [place] Anion gap [Moles/Vol] 11 mmol/L Normal 8-15 [facility] Comment on above: Order Comment: Speci men Type: BLOOD SPECIMENOrdering Facility: [facility] Address: [address] [place] [address] Performed By: #### 2 4323-8 ####[facility] LABORATORYCLIA [id number] [place] [address] [place] AST [Catalytic activity/Vol] 18 U/L Normal 14-40 [facility] Comment on above: Order Comment: Speci men Type: BLOOD SPECIMENOrdering Facility: [facility] Address: [address] [place] [address] Performed By: #### 2 4323-8 ####[facility] LABORATORYCLIA [id number] [place] [address] [place] Bilirubin [Mass/Vol] 0.2 mg/dL Normal 0.2-1.3 [facility] Comment on above: Order Comment: Speci men Type: BLOOD SPECIMENOrdering Facility: [facility] Address: [address] [place] [address] Performed By: #### 2 4323-8 ####[facility] LABORATORYCLIA [id number] [place] [address] [place] Calcium [Mass/Vol] 8.4 mg/dL Low 8.5-10.2 [facility] Comment on above: Order Comment: Speci men Type: BLOOD SPECIMENOrdering Facility: [facility] Address: [address] [place] [address] Performed By: #### 2 4323-8 ####[facility] LABORATORYCLIA [id number] [place] [address] [place] Chloride [Moles/Vol] 99 mmol/L Normal 98-107 [facility] Comment on above: Order Comment: Speci men Type: BLOOD SPECIMENOrdering Facility: [facility] Address: [address] [place] [address] Performed By: #### 2 4323-8 ####[facility] LABORATORYCLIA [id number] [place] [address] [place] CO2 [Moles/Vol] 26 mmol/L Normal 22-30 [facility] Comment on above: Order Comment: Speci men Type: BLOOD SPECIMENOrdering Facility: [facility] Address: [address] [place] [address] Performed By: #### 2 4323-8 ####[facility] LABORATORYCLIA [id number] [place] [address] [place] Creatinine [Mass/Vol] 5.23 mg/dL High 0.73-1.22 [facility] Comment on above: Order Comment: Speci men Type: BLOOD SPECIMENOrdering Facility: [facility] Address: [address] [place] [address] Performed By: #### 2 4323-8 ####[facility] LABORATORYCLIA [id number] [place] [id number] [facility] Creatinine and Glomerular filtration rate.predicted panel (S/P/Bld) 12 mL/min/1.73m??? Low >=60 [facility] Comment on above: Order Comment: Luz vaughan Type: BLOOD SPECIMENOrdering Facility: [facility] Address: [address] [place] [address] Result Comment: Breanne mated Glomerular Filtration Rate [...] actual GFR. Performed By: #### 2 4323-8 ####[facility] LABORATORYCLIA [id number] [place] [address] [place] [facility] Glucose [Mass/Vol] 108 mg/dL High 74-99 [facility] Comment on above: Order Comment: Luz vaughan Type: BLOOD SPECIMENOrdering Facility: [facility] Address: [address] [place] [address] Result Comment: The [place] [employer] (ADA) provides guidance for cutoff [...] Standards of Medical Care in Diabetes 2016, [place] [employer]. Diabetes Care. 2016.39(Suppl 1). Performed By: #### 2 4323-8 ####[facility] LABORATORYCLIA [id number] [place] [id number] [place] Potassium [Moles/Vol] 4.0 mmol/L Normal 3.7-5.1 [facility] Comment on above: Order Comment: Speci men Type: BLOOD SPECIMENOrdering Facility: [facility] Address: [address] [place] [address] Performed By: #### 2 4323-8 ####[facility] LABORATORYCLIA [id number] [address] [place] Protein [Mass/Vol] 5.6 g/dL Low 6.3-8.0 [facility] Comment on above: Order Comment: Speci men Type: BLOOD SPECIMENOrdering Facility: [facility] Address: [address] [place] [address] Performed By: #### 2 4323-8 ####[facility] LABORATORYCLIA [id number] [address] [place] Sodium [Moles/Vol] 136 mmol/L Normal 136-144 [facility] Comment on above: Order Comment: Speci men Type: BLOOD SPECIMENOrdering Facility: [facility] Address: [address] [place] [address] Performed By: #### 2 4323-8 ####[facility] LABORATORYCLIA [id number] [address] [place] Urea nitrogen [Mass/Vol] 46 mg/dL High 9-24 [facility] Comment on above: Order Comment: Speci men Type: BLOOD SPECIMENOrdering Facility: [facility] Address: [address] [place] [address] Performed By: #### 2 4323-8 ####[facility] LABORATORYCLIA [id number] [address] [place] THERAPY NTon 07-22-2024 THERAPY NT Normal [facility] CBC panel Auto (Bld)on 07-21 Erythrocyte distribution width (RBC) [Ratio] 13.2 % Normal 11.5-15.0 [facility] Comment on above: Order Comment: Speci men Type: BLOOD SPECIMENOrdering Facility: [facility] Address: [address] [place] [address] Performed By: #### 5 8410-2 ####[facility] LABORATORYCLIA [id number] [address] Hematocrit (Bld) [Volume fraction] 27.0 % Low 39.0-51.0 [facility] Comment on above: Order Comment: Speci men Type: BLOOD SPECIMENOrdering Facility: [facility] Address: [address] [place] [address] Performed By: #### 5 8410-2 ####[facility] LABORATORYCLIA [id number] [address] Hemoglobin (Bld) [Mass/Vol] 8.8 g/dL Low 13.0-17.0 [facility] Comment on above: Order Comment: Speci men Type: BLOOD SPECIMENOrdering Facility: [facility] Address: [address] [place] [address] Performed By: #### 5 8410-2 ####[facility] LABORATORYCLIA [id number] [address] MCH (RBC) [Entitic mass] 28.6 pg Normal 26.0-34.0 [facility] Comment on above: Order Comment: Speci men Type: BLOOD SPECIMENOrdering Facility: [facility] Address: [address] [place] [address] Performed By: #### 5 8410-2 ####[facility] LABORATORYCLIA [id number] [address] MCHC (RBC) [Mass/Vol] 32.6 g/dL Normal 30.5-36.0 [facility] Comment on above: Order Comment: Speci men Type: BLOOD SPECIMENOrdering Facility: [facility] Address: [address] [place] [address] Performed By: #### 5 8410-2 ####[facility] LABORATORYCLIA [id number] [address] MCV (RBC) [Entitic vol] 87.7 fL Normal 80.0-100.0 [facility] Comment on above: Order Comment: Speci men Type: BLOOD SPECIMENOrdering Facility: [facility] Address: [address] [place] [address] Performed By: #### 5 8410-2 ####[facility] LABORATORYCLIA [id number] [place] [address] [place] Nucleated RBC (Bld) [#/Vol] 10*3/uL Normal <0.01 [facility] Comment on above: Order Comment: Speci men Type: BLOOD SPECIMENOrdering Facility: [facility] Address: [address] [place] [address] Performed By: #### 5 8410-2 ####[facility] LABORATORYCLIA [id number] [place] [address] [place] Platelet mean volume (Bld) [Entitic vol] 9.2 fL Normal 9.0-12.7 [facility] Comment on above: Order Comment: Speci men Type: BLOOD SPECIMENOrdering Facility: [facility] Address: [address] [place] [address] Performed By: #### 5 8410-2 ####[facility] LABORATORYCLIA [id number] [address] [place] Platelets (Bld) [#/Vol] 148 10*3/uL Low 150-400 [facility] Comment on above: Order Comment: Speci men Type: BLOOD SPECIMENOrdering Facility: [facility] Address: [address] [place] [address] Performed By: #### 5 8410-2 ####[facility] LABORATORYCLIA [id number] [address] [place] RBC (Bld) [#/Vol] 3.08 10*6/uL Low 4.20-6.00 [place] Comment on above: Order Comment: Speci men Type: BLOOD SPECIMENOrdering Facility: [facility] Address: [address] [place] [address] Performed By: #### 5 8410-2 ####[facility] LABORATORYCLIA [id number] [address] [place] WBC (Bld) [#/Vol] 4.39 10*3/uL Normal 3.70-11.00 [place] Comment on above: Order Comment: Speci men Type: BLOOD SPECIMENOrdering Facility: [facility] Address: [address] [place] [address] Performed By: #### 5 8410-2 ####[facility] LABORATORYCLIA [id number] [place] [address] [place] CONSULT PROGon 07-21-2024 CONSULT PROG Normal [facility] Comprehensive metabolic 2000 panelon 07-21-2024 Albumin [Mass/Vol] 3.2 g/dL Low 3.9-4.9 [facility] Comment on above: Order Comment: Speci men Type: BLOOD SPECIMENOrdering Facility: [facility] Address: [address] [place] [address] Performed By: #### 2 4323-8 ####[facility] LABORATORYCLIA [id number] [address] [place] ALP [Catalytic activity/Vol] 106 U/L Normal 38-113 [facility] Comment on above: Order Comment: Speci men Type: BLOOD SPECIMENOrdering Facility: [facility] Address: [address] [place] [address] Performed By: #### 2 4323-8 ####[facility] LABORATORYCLIA [id number] [address] [place] ALT [Catalytic activity/Vol] 13 U/L Normal 10-54 [facility] Comment on above: Order Comment: Speci men Type: BLOOD SPECIMENOrdering Facility: [facility] Address: [address] [place] [address] Performed By: #### 2 4323-8 ####[facility] LABORATORYCLIA [id number] [place] [address] [place] Anion gap [Moles/Vol] 14 mmol/L Normal 8-15 [facility] Comment on above: Order Comment: Speci men Type: BLOOD SPECIMENOrdering Facility: [facility] Address: [address] [place] [address] Performed By: #### 2 4323-8 ####[facility] LABORATORYCLIA [id number] [place] [address] [place] AST [Catalytic activity/Vol] 25 U/L Normal 14-40 [facility] Comment on above: Order Comment: Speci men Type: BLOOD SPECIMENOrdering Facility: [facility] Address: [address] [place] [address] [place] [address] Performed By: #### 2 4323-8 ####[facility] LABORATORYCLIA [id number] [place] [address] [place] Bilirubin [Mass/Vol] 0.3 mg/dL Normal 0.2-1.3 [facility] Comment on above: Order Comment: Speci men Type: BLOOD SPECIMENOrdering Facility: [facility] Address: [address] [place] [address] Performed By: #### 2 4323-8 ####[facility] LABORATORYCLIA [id number] [place] [address] [place] Calcium [Mass/Vol] 8.6 mg/dL Normal 8.5-10.2 [facility] Comment on above: Order Comment: Speci men Type: BLOOD SPECIMENOrdering Facility: [facility] Address: [address] [place] [address] Performed By: #### 2 4323-8 ####[facility] LABORATORYCLIA [id number] [place] [address] [place] Chloride [Moles/Vol] 96 mmol/L Low 98-107 [facility] Comment on above: Order Comment: Speci men Type: BLOOD SPECIMENOrdering Facility: [facility] Address: [address] [place] [address] Performed By: #### 2 4323-8 ####[facility] LABORATORYCLIA [id number] [place] [address] [place] CO2 [Moles/Vol] 25 mmol/L Normal 22-30 [facility] Comment on above: Order Comment: Speci men Type: BLOOD SPECIMENOrdering Facility: [facility] Address: [address] [place] [address] Performed By: #### 2 4323-8 ####[facility] LABORATORYCLIA [id number] [place] [address] [place] Creatinine [Mass/Vol] 4.12 mg/dL High 0.73-1.22 [facility] Comment on above: Order Comment: Luz vaughan Type: BLOOD SPECIMENOrdering Facility: [facility] Address: [address] [place] [address] Performed By: #### 2 4323-8 ####[facility] LABORATORYCLIA [id number] [place] [id number] [place] Creatinine and Glomerular filtration rate.predicted panel (S/P/Bld) 15 mL/min/1.73m??? Low >=60 [facility] Comment on above: Order Comment: Luz vaughan Type: BLOOD SPECIMENOrdering Facility: [facility] Address: [address] [place] [address] Result Comment: Breanne mated Glomerular Filtration Rate [...] Performed By: #### 2 4323-8 ####[facility] LABORATORYCLIA [id number] [place] [id number] [place] Glucose [Mass/Vol] 85 mg/dL Normal 74-99 [facility] Comment on above: Order Comment: Luz vaughan Type: BLOOD SPECIMENOrdering Facility: [facility] Address: [address] [place] [address] Result Comment: The [place] [employer] (ADA) provides guidance for cutoff [...] Standards of Medical Care in Diabetes 2016, [place] [employer]. Diabetes Care. 2016.39(Suppl 1). Performed By: #### 2 4323-8 ####[facility] LABORATORYCLIA [id number] [address] [place] Potassium [Moles/Vol] 3.8 mmol/L Normal 3.7-5.1 [facility] Comment on above: Order Comment: Speci men Type: BLOOD SPECIMENOrdering Facility: [facility] Address: [address] [place] [address] Performed By: #### 2 4323-8 ####[facility] LABORATORYCLIA [id number] [address] [place] [facility] Protein [Mass/Vol] 5.8 g/dL Low 6.3-8.0 [facility] Comment on above: Order Comment: Speci men Type: BLOOD SPECIMENOrdering Facility: [facility] Address: [address] [place] [address] Performed By: #### 2 4323-8 ####[facility] LABORATORYCLIA [id number] [address] [place] Sodium [Moles/Vol] 135 mmol/L Low 136-144 [facility] Comment on above: Order Comment: Speci men Type: BLOOD SPECIMENOrdering Facility: [facility] Address: [address] [place] [address] Performed By: #### 2 4323-8 ####[facility] LABORATORYCLIA [id number] [address] [place] Urea nitrogen [Mass/Vol] 34 mg/dL High 9-24 [facility] Comment on above: Order Comment: Speci men Type: BLOOD SPECIMENOrdering Facility: [facility] Address: [address] [place] [address] Performed By: #### 2 4323-8 ####[facility] LABORATORYCLIA [id number] [place] [address] [place] Basic metabolic 2000 panelon 07-20-2024 Anion gap [Moles/Vol] 15 mmol/L Normal 8-15 [facility] Comment on above: Order Comment: Speci men Type: BLOOD SPECIMENOrdering Facility: [facility] Address: [address] [place] [address] Performed By: #### 2 4321-2 ####[facility] LABORATORYCLIA [id number] [place] [address] [place] Calcium [Mass/Vol] 9.1 mg/dL Normal 8.5-10.2 [facility] Comment on above: Order Comment: Speci men Type: BLOOD SPECIMENOrdering Facility: [facility] Address: [address] [place] [address] Performed By: #### 2 4321-2 ####[facility] LABORATORYCLIA [id number] [place] [address] [place] Chloride [Moles/Vol] 101 mmol/L Normal 98-107 [facility] Comment on above: Order Comment: Speci men Type: BLOOD SPECIMENOrdering Facility: [facility] Address: [address] [place] [address] Performed By: #### 2 4321-2 ####[facility] LABORATORYCLIA [id number] [place] [address] [place] CO2 [Moles/Vol] 23 mmol/L Normal 22-30 [facility] Comment on above: Order Comment: Speci men Type: BLOOD SPECIMENOrdering Facility: [facility] Address: [address] [place] [address] Performed By: #### 2 4321-2 ####[facility] LABORATORYCLIA [id number] [place] [address] [place] Creatinine [Mass/Vol] 5.49 mg/dL High 0.73-1.22 [facility] Comment on above: Order Comment: Speci men Type: BLOOD SPECIMENOrdering Facility: [facility] Address: [address] [place] [address] Performed By: #### 2 4321-2 ####[facility] LABORATORYCLIA [id number] [address] [place] Creatinine and Glomerular filtration rate.predicted panel (S/P/Bld) 11 mL/min/1.73m??? Low >=60 [facility] Comment on above: Order Comment: Speci men Type: BLOOD SPECIMENOrdering Facility: [facility] Address: [address] [place] [address] Result Comment: Breanne mated Glomerular Filtration Rate [...] Performed By: #### 2 4321-2 ####[facility] LABORATORYCLIA [id number] [place] [address] [place] Glucose [Mass/Vol] 123 mg/dL High 74-99 [facility] Comment on above: Order Comment: Luz vaughan Type: BLOOD SPECIMENOrdering Facility: [facility] Address: [address] [place] [address] Result Comment: The [place] Diabetes Association (ADA) provides guidance for cutoff [...] Standards of Medical Care in Diabetes 2016, [place] [employer]. Diabetes Care. 2016.39(Suppl 1). Performed By: #### 2 4321-2 ####ADKINS LABORATORYCLIA [id number] [place] [id number] [place] Potassium [Moles/Vol] 4.5 mmol/L Normal 3.7-5.1 [facility] Comment on above: Order Comment: Luz vaughan Type: BLOOD SPECIMENOrdering Facility: [facility] Address: [address] [place] [address] Performed By: #### 2 4321-2 ####ADKINS LABORATORYCLIA [id number] [place] [address] [place] Sodium [Moles/Vol] 139 mmol/L Normal 136-144 [facility] Comment on above: Order Comment: Speci men Type: BLOOD SPECIMENOrdering Facility: [facility] Address: [address] [place] [place] [id number] Performed By: #### 2 4321-2 ####ADK[facility] LABORATORYCLIA [id number] [place] [address] [place] Urea nitrogen [Mass/Vol] 57 mg/dL High 9-24 [facility] Comment on above: Order Comment: Speci men Type: BLOOD SPECIMENOrdering Facility: [facility] Address: [address] [place] [address] Performed By: #### 2 4321-2 ####ADKINS LABORATORYCLIA [id number] [place] [address] [place] BRAIN WO IVCONon 07-21-19 CT BRAIN WO IVCON [facility]NAGEMon 07-19-2024 CASE MANAGEM [facility] CONSULT PROn 07-19-2024 CONSULT [facility] Renal function 2000 panelon 07-19-2024 Albumin [Mass/Vol] 3.2 g/dL Low 3.9-4.9 [facility] Comment on above: Order Comment: Speci men Type: BLOOD SPECIMENOrdering Facility: [facility] Address: [address] [place] [address] Performed By: #### 2 4362-6 ####ADKINS LABORATORYCLIA [id number] [place] [address] [place] Anion gap [Moles/Vol] 20 mmol/L High 8-15 [facility] Comment on above: Order Comment: Speci men Type: BLOOD SPECIMENOrdering Facility: [facility] Address: [address] [place], [place] [address] Performed By: #### 2 4362-6 ####ADKINS LABORATORYCLIA [id number] [place] [address] [place] Calcium [Mass/Vol] 9.1 mg/dL Normal 8.5-10.2 [facility] Comment on above: Order Comment: Speci men Type: BLOOD SPECIMENOrdering Facility: [facility] Address: [address] [place], [place] [address] Performed By: #### 2 4362-6 ####ADKINS LABORATORYCLIA [id number] [place] [address] [place] Chloride [Moles/Vol] 109 mmol/L High 98-107 [facility] Comment on above: Order Comment: Speci men Type: BLOOD SPECIMENOrdering Facility: [facility] Address: [address] [place] [address] Performed By: #### 2 4362-6 ####ADKINS LABORATORYCLIA [id number] [place] [address] [place] CO2 [Moles/Vol] 16 mmol/L Low 22-30 [facility] Comment on above: Order Comment: Speci men Type: BLOOD SPECIMENOrdering Facility: [facility] Address: [address] [place] [address] Performed By: #### 2 4362-6 ####ADKINS LABORATORYCLIA [id number] [place] [address] [place] Creatinine [Mass/Vol] 6.51 mg/dL High 0.73-1.22 [facility] Comment on above: Order Comment: Speci men Type: BLOOD SPECIMENOrdering Facility: [facility] Address: [address] [place] [address] Performed By: #### 2 4362-6 ####ADKINS LABORATORYCLIA [id number] [address] Creatinine and Glomerular filtration rate.predicted panel (S/P/Bld) 9 mL/min/1.73m??? Low >=60 [facility] Comment on above: Order Comment: Speci men Type: BLOOD SPECIMENOrdering Facility: [facility] Address: [address] [place] [address] Result Comment: Breanne mated Glomerular Filtration Rate [...] Performed By: #### 2 4362-6 ####ADKINS LABORATORYCLIA [id number] [place] [address] [place] Glucose [Mass/Vol] 100 mg/dL High 74-99 [facility] Comment on above: Order Comment: Luz clement Type: BLOOD SPECIMENOrdering Facility: [facility] Address: [address] [place] [address] Result Comment: The [place] Diabetes Association (ADA) provides guidance for cutoff [...] Standards of Medical Care in Diabetes 2016, [place] [employer]. Diabetes Care. 2016.39(Suppl 1). Performed By: #### 2 4362-6 ####ADKINS LABORATORYCLIA [id number] [place] [id number] [place] Phosphate [Mass/Vol] 10.9 mg/dL High 2.7-4.8 [facility] Comment on above: Order Comment: Luz vaughan Type: BLOOD SPECIMENOrdering Facility: [facility] Address: [address] [place] [address] Performed By: #### 2 4362-6 ####ADKINS LABORATORYCLIA [id number] [place] [id number] [place] Potassium [Moles/Vol] 5.4 mmol/L High 3.7-5.1 [facility] Comment on above: Order Comment: Luz men Type: BLOOD SPECIMENOrdering Facility: [facility] Address: [address] [place] [address] Performed By: #### 2 4362-6 ####ADKINS LABORATORYCLIA [id number] [place] [id number] [place] Sodium [Moles/Vol] 145 mmol/L High 136-144 [facility] Comment on above: Order Comment: Speci men Type: BLOOD SPECIMENOrdering Facility: [facility] Address: [address] [place] [address] Performed By: #### 2 4362-6 ####ADKINS LABORATORYCLIA [id number] [address] [place] [facility] Urea nitrogen [Mass/Vol] 83 mg/dL High 9-24 [facility] Comment on above: Order Comment: Speci men Type: BLOOD SPECIMENOrdering Facility: [facility] Address: [address] [place] [address] Performed By: #### 2 4362-6 ####ADKINS LABORATORYCLIA [id number] [address] [place] BRIEF OP NOTon 07-18-2024 BRIEF OP NOT Normal [facility] CASE MANAGEMon 07-18-2024 CASE MANAGEM Normal [facility] CBC W Auto Differential pane l (Bld)on 07-18-2024 Basophils (Bld) [#/Vol] 10*3/uL Normal <0.11 [facility] Comment on above: Order Comment: Speci men Type: BLOOD SPECIMENOrdering Facility: [facility] Address: [address] [place] [address] Performed By: #### 5 7021-8 ####ADKINS LABORATORYCLIA [id number] [address] STATES [facility] Basophils/100 WBC (Bld) 0.2 % Normal [facility] Comment on above: Order Comment: Speci men Type: BLOOD SPECIMENOrdering Facility: [facility] Address: [address] [place] [address] Performed By: #### 5 7021-8 ####ADK[facility] LABORATORYCLIA [id number] [address] Differential cell count method Nom (Bld) Auto Normal [facility] Comment on above: Order Comment: Speci men Type: BLOOD SPECIMENOrdering Facility: [facility] Address: [address] [place] [address] Performed By: #### 5 7021-8 ####ADK[facility] LABORATORYCLIA [id number] [place] [address] [place] Eosinophils (Bld) [#/Vol] 0.49 10*3/uL High <0.46 [facility] Comment on above: Order Comment: Speci men Type: BLOOD SPECIMENOrdering Facility: [facility] Address: [address] [place] [address] Performed By: #### 5 7021-8 ####AD[facility] LABORATORYCLIA [id number] [address] [place] Eosinophils/100 WBC (Bld) 8.3 % Normal [facility] Comment on above: Order Comment: Speci men Type: BLOOD SPECIMENOrdering Facility: [facility] Address: [address] [place] [address] Performed By: #### 5 7021-8 ####[facility] LABORATORYCLIA [id number] [address] Erythrocyte distribution width (RBC) [Ratio] 13.2 % Normal 11.5-15.0 [facility] Comment on above: Order Comment: Speci men Type: BLOOD SPECIMENOrdering Facility: [facility] Address: [address] [place] [address] Performed By: #### 5 7021-8 ####AD[facility] LABORATORYCLIA [id number] [address] [place] Hematocrit (Bld) [Volume fraction] 29.6 % Low 39.0-51.0 [facility] Comment on above: Order Comment: Speci men Type: BLOOD SPECIMENOrdering Facility: [facility] Address: [address] [place] [address] Performed By: #### 5 7021-8 ####ADK[facility] LABORATORYCLIA [id number] [address] Hemoglobin (Bld) [Mass/Vol] 9.4 g/dL Low 13.0-17.0 [facility] Comment on above: Order Comment: Speci men Type: BLOOD SPECIMENOrdering Facility: [facility] Address: [address] [place] [address] Performed By: #### 5 7021-8 ####[facility] LABORATORYCLIA [id number] [address] [place] Immature granulocytes (Bld) [#/Vol] 10*3/uL Normal <0.10 [facility] Comment on above: Order Comment: Speci men Type: BLOOD SPECIMENOrdering Facility: [facility] Address: [address] [place] [address] Performed By: #### 5 7021-8 ####AD[facility] LABORATORYCLIA [id number] [address] Immature granulocytes/100 WBC (Bld) 0.3 % Normal [facility] Comment on above: Order Comment: Speci men Type: BLOOD SPECIMENOrdering Facility: [facility] Address: [address] [place] [address] Performed By: #### 5 7021-8 ####ADK[facility] LABORATORYCLIA [id number] [address] [place] Lymphocytes (Bld) [#/Vol] 1.17 10*3/uL Normal 1.00-4.00 [facility] Comment on above: Order Comment: Speci men Type: BLOOD SPECIMENOrdering Facility: [facility] Address: [address] [place] [address] Performed By: #### 5 7021-8 ####AD[facility] LABORATORYCLIA [id number] [address] Lymphocytes/100 WBC (Bld) 19.8 % Normal [facility] Comment on above: Order Comment: Speci men Type: BLOOD SPECIMENOrdering Facility: [facility] Address: [address] [place] [address] Performed By: #### 5 7021-8 ####ADK[facility] LABORATORYCLIA [id number] [address] [place] [facility] MCH (RBC) [Entitic mass] 28.7 pg Normal 26.0-34.0 [facility] Comment on above: Order Comment: Speci men Type: BLOOD SPECIMENOrdering Facility: [facility] Address: [address] [place] [address] Performed By: #### 5 7021-8 ####ADK[facility] LABORATORYCLIA [id number] [place] [address] [place] MCHC (RBC) [Mass/Vol] 31.8 g/dL Normal 30.5-36.0 [facility] Comment on above: Order Comment: Speci men Type: BLOOD SPECIMENOrdering Facility: [facility] Address: [address] [place] [address] Performed By: #### 5 7021-8 ####ADK[facility] LABORATORYCLIA [id number] [address] MCV (RBC) [Entitic vol] 90.5 fL Normal 80.0-100.0 [facility] Comment on above: Order Comment: Speci men Type: BLOOD SPECIMENOrdering Facility: [facility] Address: [address] [place] [address] Performed By: #### 5 7021-8 ####AD[facility] LABORATORYCLIA [id number] [place] [address] [place] Monocytes (Bld) [#/Vol] 0.64 10*3/uL Normal <0.87 [facility] Comment on above: Order Comment: Speci men Type: BLOOD SPECIMENOrdering Facility: [facility] Address: [address] [place] [address] Performed By: #### 5 7021-8 ####ADK[facility] LABORATORYCLIA [id number] [address] Monocytes/100 WBC (Bld) 10.8 % Normal [facility] Comment on above: Order Comment: Speci men Type: BLOOD SPECIMENOrdering Facility: [facility] Address: [address] [place] [address] Performed By: #### 5 7021-8 ####ADK[facility] LABORATORYCLIA [id number] [place] [address] [place] Neutrophils (Bld) [#/Vol] 3.59 10*3/uL Normal 1.45-7.50 [facility] Comment on above: Order Comment: Speci men Type: BLOOD SPECIMENOrdering Facility: [facility] Address: [address] [place] [address] Performed By: #### 5 7021-8 ####ADK[facility] LABORATORYCLIA [id number] [address] Neutrophils/100 WBC (Bld) 60.6 % Normal [facility] Comment on above: Order Comment: Speci men Type: BLOOD SPECIMENOrdering Facility: [facility] Address: [address] [place] [address] Performed By: #### 5 7021-8 ####ADK[facility] LABORATORYCLIA [id number] [address] [place] Nucleated RBC (Bld) [#/Vol] 10*3/uL Normal <0.01 [facility] Comment on above: Order Comment: Speci men Type: BLOOD SPECIMENOrdering Facility: [facility] Address: [address] [place] [address] Performed By: #### 5 7021-8 ####ADK[facility] LABORATORYCLIA [id number] [address] Nucleated RBC/100 WBC (Bld) [Ratio] 0.0 /100 WBC Normal [facility] Comment on above: Order Comment: Speci men Type: BLOOD SPECIMENOrdering Facility: [facility] Address: [address] [place] [address] Performed By: #### 5 7021-8 ####ADK[facility] LABORATORYCLIA [id number] [address] [place] Platelet mean volume (Bld) [Entitic vol] 9.7 fL Normal 9.0-12.7 [facility] Comment on above: Order Comment: Speci men Type: BLOOD SPECIMENOrdering Facility: [facility] Address: [address] [place] [address] Performed By: #### 5 7021-8 ####ADKINS LABORATORYCLIA [id number] [address] [place] Platelets (Bld) [#/Vol] 198 10*3/uL Normal 150-400 [facility] Comment on above: Order Comment: Speci men Type: BLOOD SPECIMENOrdering Facility: [facility] Address: [address] [place] [address] Performed By: #### 5 7021-8 ####ADK[facility] LABORATORYCLIA [id number] [place] [address] [place] RBC (Bld) [#/Vol] 3.27 10*6/uL Low 4.20-6.00 [place] Comment on above: Order Comment: Speci men Type: BLOOD SPECIMENOrdering Facility: [facility] Address: [address] [place] [address] Performed By: #### 5 7021-8 ####ADK[facility] LABORATORYCLIA [id number] [address] WBC (Bld) [#/Vol] 5.92 10*3/uL Normal 3.70-11.00 [place] Comment on above: Order Comment: Speci men Type: BLOOD SPECIMENOrdering Facility: [facility] Address: [address] [place] [address] Performed By: #### 5 7021-8 ####ADK[facility] LABORATORYCLIA [id number] [address] CONSULT PROGon 07-18-2024 CONSULT PROG Normal [facility] Comprehensive metabolic 2000 panelon 07-18-2024 Albumin [Mass/Vol] 3.0 g/dL Low 3.9-4.9 [facility] Comment on above: Order Comment: Speci men Type: BLOOD SPECIMENOrdering Facility: [facility] Address: [address] [place] [address] Performed By: #### 2 4323-8 ####ADK[facility] LABORATORYCLIA [id number] [address] [place] ALP [Catalytic activity/Vol] 103 U/L Normal 38-113 [facility] Comment on above: Order Comment: Speci men Type: BLOOD SPECIMENOrdering Facility: [facility] Address: [address] [place] [address] Performed By: #### 2 4323-8 ####ADK[facility] LABORATORYCLIA [id number] [address] ALT [Catalytic activity/Vol] 8 U/L Low 10-54 [facility] Comment on above: Order Comment: Speci men Type: BLOOD SPECIMENOrdering Facility: [facility] Address: [address] [place] [address] Performed By: #### 2 4323-8 ####ADK[facility] LABORATORYCLIA [id number] [place] [address] [place] Anion gap [Moles/Vol] 11 mmol/L Normal 8-15 [facility] Comment on above: Order Comment: Speci men Type: BLOOD SPECIMENOrdering Facility: [facility] Address: [address] [place] [address] Performed By: #### 2 4323-8 ####ADK[facility] LABORATORYCLIA [id number] [address] [place] AST [Catalytic activity/Vol] 10 U/L Low 14-40 [facility] Comment on above: Order Comment: Speci men Type: BLOOD SPECIMENOrdering Facility: [facility] Address: [address] [place] [address] Performed By: #### 2 4323-8 ####ADK[facility] LABORATORYCLIA [id number] [place] [address] [place] Bilirubin [Mass/Vol] 0.2 mg/dL Normal 0.2-1.3 [facility] Comment on above: Order Comment: Speci men Type: BLOOD SPECIMENOrdering Facility: [facility] Address: [address] [place] [address] Performed By: #### 2 4323-8 ####ADK[facility] LABORATORYCLIA [id number] [address] [place] Calcium [Mass/Vol] 9.1 mg/dL Normal 8.5-10.2 [facility] Comment on above: Order Comment: Speci men Type: BLOOD SPECIMENOrdering Facility: [facility] Address: [address] [place] [address] Performed By: #### 2 4323-8 ####ADKINS LABORATORYCLIA [id number] [place] [address] [place] Chloride [Moles/Vol] 112 mmol/L High 98-107 [facility] Comment on above: Order Comment: Speci men Type: BLOOD SPECIMENOrdering Facility: [facility] Address: [address] [place] [address] Performed By: #### 2 4323-8 ####ADKINS LABORATORYCLIA [id number] [place] [address] [place] CO2 [Moles/Vol] 20 mmol/L Low 22-30 [facility] Comment on above: Order Comment: Brook[place] men Type: BLOOD SPECIMENOrdering Facility: [facility] Address: [address] [place] [address] Performed By: #### 2 4323-8 ####ADK[facility] LABORATORYCLIA [id number] [place] [address] [place] Creatinine [Mass/Vol] 5.34 mg/dL High 0.73-1.22 [facility] Comment on above: Order Comment: Brook[place] men Type: BLOOD SPECIMENOrdering Facility: [facility] Address: [address] [place] [address] Performed By: #### 2 4323-8 ####ADKINS LABORATORYCLIA [id number] [address] [place] Creatinine and Glomerular filtration rate.predicted panel (S/P/Bld) 11 mL/min/1.73m??? Low >=60 [facility] Comment on above: Order Comment: Luz men Type: BLOOD SPECIMENOrdering Facility: [facility] Address: [address] [place] [address] Result Comment: Breanne mated Glomerular Filtration Rate [...] Performed By: #### 2 4323-8 ####ADK[facility] LABORATORYCLIA [id number] [place] [address] [place] Glucose [Mass/Vol] 72 mg/dL Low 74-99 [facility] Comment on above: Order Comment: Brook[place] men Type: BLOOD SPECIMENOrdering Facility: [facility] Address: [address] [place] [address] Result Comment: The [place] Diabetes [employer] (ADA) provides guidance for cutoff [...] Standards of Medical Care in Diabetes 2016, [place] [employer]. Diabetes Care. 2016.39(Suppl 1). Performed By: #### 2 4323-8 ####ADKINS LABORATORYCLIA [id number] [place] [address] [place] Potassium [Moles/Vol] 5.2 mmol/L High 3.7-5.1 [facility] Comment on above: Order Comment: Speci men Type: BLOOD SPECIMENOrdering Facility: [facility] Address: [address] [place] [address] Performed By: #### 2 4323-8 ####ADKINS LABORATORYCLIA [id number] [place] [address] [place] Protein [Mass/Vol] 5.9 g/dL Low 6.3-8.0 [facility] Comment on above: Order Comment: Speci men Type: BLOOD SPECIMENOrdering Facility: [facility] Address: [address] [place] [address] Performed By: #### 2 4323-8 ####ADK[facility] LABORATORYCLIA [id number] [place] [address] [place] Sodium [Moles/Vol] 143 mmol/L Normal 136-144 [facility] Comment on above: Order Comment: Speci men Type: BLOOD SPECIMENOrdering Facility: [facility] Address: [address] [place] [address] Performed By: #### 2 4323-8 ####ADK[facility] LABORATORYCLIA [id number] [place] [address] [place] Urea nitrogen [Mass/Vol] 76 mg/dL High 9-24 [facility] Comment on above: Order Comment: Speci men Type: BLOOD SPECIMENOrdering Facility: [facility] Address: [address] [place] [address] Performed By: #### 2 4323-8 ####[facility] LABORATORYCLIA [id number] [place] [address] [place] HBV surface Ab Ql (S)on 07-02 HBV surface Ab Qn (S) <8.00 Normal [facility] Comment on above: Order Comment: Speci men Type: BLOOD SPECIMENOrdering Facility: [facility] Address: [address] [place] [address] Result Comment: <8 m IU/mL: No serological evidence of immunity to Hepatitis B Virus.>/= 8 to <12 mIU/mL: No serological evidence of immunity to Hepatitis B Virus.>/= 12 mIU/mL: Consistent with serological evidence of immunity to Hepatitis B Virus. Performed By: #### 2 2322-2, 519-3 ####[facility] LABCLIA [id number] [address] [place] HBV surface Ab Ser Qlon 07-02 HBV surface Ab Ql (S) Negative Normal [facility] Comment on above: Order Comment: Speci men Type: BLOOD SPECIMENOrdering Facility: [facility] Address: [address] [place] [address] Result Comment: No s erological evidence of immunity to Hepatitis B Virus. Performed By: #### 2 2322-2, 5194-3 ####[facility] LABCLIA [id number] [place] [address] [place] HBV surface Ag Ser Qlon 07-02 HBV surface Ag Ql (S) Negative Normal Negative [facility] Comment on above: Order Comment: Speci men Type: BLOOD SPECIMENOrdering Facility: [facility] Address: [address] [place] [address] Performed By: #### 2 2322-2, 519-3 ####[facility] LABCLIA [id number] [place] [address] [place] IR CVC TUNNEL W/O PORT INSER Ton 07-18-2024 IR CVC TUNNEL W/O PORT INSERT [facility] NURSING PROGon 07-18-2024 NURSING PROG [facility] PT EDon 07-18-2024 PT ED [facility] THERAPY NTon 07-18-2024 THERAPY NT [facility] CASE MANAGEMon 07-17-2024 CASE MANAGEM [facility] CBC W Auto Differential pane l (Bld)on 07-17-2024 Basophils (Bld) [#/Vol] 10*3/uL Normal <0.11 [facility] Comment on above: Order Comment: Speci men Type: BLOOD SPECIMENOrdering Facility: [facility] Address: [address] [place] [address] Performed By: #### 5 7021-8 ####[facility] LABORATORYCLIA [id number] [place] [address] [place] Basophils/100 WBC (Bld) 0.2 % Normal [facility] Comment on above: Order Comment: Speci men Type: BLOOD SPECIMENOrdering Facility: [facility] Address: [address] [place] [address] Performed By: #### 5 7021-8 ####[facility] LABORATORYCLIA [id number] [place] [id number] [place] Differential cell count method Nom (Bld) Auto Normal [facility] Comment on above: Order Comment: Speci men Type: BLOOD SPECIMENOrdering Facility: [facility] Address: [address] [place] [address] Performed By: #### 5 7021-8 ####[facility] LABORATORYCLIA [id number] [place] [address] [place] Eosinophils (Bld) [#/Vol] 0.36 10*3/uL Normal <0.46 [facility] Comment on above: Order Comment: Speci men Type: BLOOD SPECIMENOrdering Facility: [facility] Address: [address] [place] [address] Performed By: #### 5 7021-8 ####[facility] LABORATORYCLIA [id number] [place] [address] [place] Eosinophils/100 WBC (Bld) 5.8 % Normal [facility] Comment on above: Order Comment: Speci men Type: BLOOD SPECIMENOrdering Facility: [facility] Address: [address] [place] [address] Performed By: #### 5 7021-8 ####[facility] LABORATORYCLIA [id number] [place] [address] [place] Erythrocyte distribution width (RBC) [Ratio] 13.2 % Normal 11.5-15.0 [facility] Comment on above: Order Comment: Speci men Type: BLOOD SPECIMENOrdering Facility: [facility] Address: [address] [place] [address] Performed By: #### 5 7021-8 ####[facility] LABORATORYCLIA [id number] [address] [place] Hematocrit (Bld) [Volume fraction] 31.9 % Low 39.0-51.0 [facility] Comment on above: Order Comment: Speci men Type: BLOOD SPECIMENOrdering Facility: [facility] Address: [address] [place] [address] Performed By: #### 5 7021-8 ####[facility] LABORATORYCLIA [id number] [address] [place] Hemoglobin (Bld) [Mass/Vol] 10.3 g/dL Low 13.0-17.0 [facility] Comment on above: Order Comment: Speci men Type: BLOOD SPECIMENOrdering Facility: [facility] Address: [address] [place] [address] Performed By: #### 5 7021-8 ####ADKINS LABORATORYCLIA [id number] [address] Immature granulocytes (Bld) [#/Vol] 0.04 10*3/uL Normal <0.10 [facility] Comment on above: Order Comment: Speci men Type: BLOOD SPECIMENOrdering Facility: [facility] Address: [address] [place] [address] Performed By: #### 5 7021-8 ####ADKINS LABORATORYCLIA [id number] [address] Immature granulocytes/100 WBC (Bld) 0.6 % Normal [facility] Comment on above: Order Comment: Speci men Type: BLOOD SPECIMENOrdering Facility: [facility] Address: [address] [place] [address] Performed By: #### 5 7021-8 ####ADKINS LABORATORYCLIA [id number] [address] [place] Lymphocytes (Bld) [#/Vol] 1.09 10*3/uL Normal 1.00-4.00 [facility] Comment on above: Order Comment: Speci men Type: BLOOD SPECIMENOrdering Facility: [facility] Address: [address] [place] [address] Performed By: #### 5 7021-8 ####ADKINS LABORATORYCLIA [id number] [address] Lymphocytes/100 WBC (Bld) 17.4 % Normal [facility] Comment on above: Order Comment: Speci men Type: BLOOD SPECIMENOrdering Facility: [facility] Address: [address] [place] [address] Performed By: #### 5 7021-8 ####ADKINS LABORATORYCLIA [id number] [address] MCH (RBC) [Entitic mass] 28.9 pg Normal 26.0-34.0 [facility] Comment on above: Order Comment: Speci men Type: BLOOD SPECIMENOrdering Facility: [facility] Address: [address] [place] [address] Performed By: #### 5 7021-8 ####ADKINS LABORATORYCLIA [id number] [address] MCHC (RBC) [Mass/Vol] 32.3 g/dL Normal 30.5-36.0 [facility] Comment on above: Order Comment: Speci men Type: BLOOD SPECIMENOrdering Facility: [facility] Address: [address] [place] [address] Performed By: #### 5 7021-8 ####ADKINS LABORATORYCLIA [id number] [place] [address] [place] MCV (RBC) [Entitic vol] 89.4 fL Normal 80.0-100.0 [facility] Comment on above: Order Comment: Speci men Type: BLOOD SPECIMENOrdering Facility: [facility] Address: [address] [place] [address] Performed By: #### 5 7021-8 ####ADKINS LABORATORYCLIA [id number] [place] [address] [place] Monocytes (Bld) [#/Vol] 0.61 10*3/uL Normal <0.87 [facility] Comment on above: Order Comment: Speci men Type: BLOOD SPECIMENOrdering Facility: [facility] Address: [address] [place] [address] Performed By: #### 5 7021-8 ####ADKINS LABORATORYCLIA [id number] [address] [place] Monocytes/100 WBC (Bld) 9.7 % Normal [facility] Comment on above: Order Comment: Speci men Type: BLOOD SPECIMENOrdering Facility: [facility] Address: [address] [place] [address] Performed By: #### 5 7021-8 ####ADKINS LABORATORYCLIA [id number] [place] [address] [place] Neutrophils (Bld) [#/Vol] 4.15 10*3/uL Normal 1.45-7.50 [facility] Comment on above: Order Comment: Speci men Type: BLOOD SPECIMENOrdering Facility: [facility] Address: [address] [place] [address] Performed By: #### 5 7021-8 ####ADKINS LABORATORYCLIA [id number] [address] [place] Neutrophils/100 WBC (Bld) 66.3 % Normal [facility] Comment on above: Order Comment: Speci men Type: BLOOD SPECIMENOrdering Facility: [facility] Address: [address] [place] [address] Performed By: #### 5 7021-8 ####ADKINS LABORATORYCLIA [id number] [place] [address] [place] Nucleated RBC (Bld) [#/Vol] 10*3/uL Normal <0.01 [facility] Comment on above: Order Comment: Speci men Type: BLOOD SPECIMENOrdering Facility: [facility] Address: [address] [place] [address] Performed By: #### 5 7021-8 ####ADKINS LABORATORYCLIA [id number] [place] [address] [place] Nucleated RBC/100 WBC (Bld) [Ratio] 0.0 /100 WBC Normal [facility] Comment on above: Order Comment: Speci men Type: BLOOD SPECIMENOrdering Facility: [facility] Address: [address] [place] [address] Performed By: #### 5 7021-8 ####ADKINS LABORATORYCLIA [id number] [place] [address] [place] Platelet mean volume (Bld) [Entitic vol] 9.5 fL Normal 9.0-12.7 [facility] Comment on above: Order Comment: Speci men Type: BLOOD SPECIMENOrdering Facility: [facility] Address: [address] [place] [address] [place] [address] Performed By: #### 5 7021-8 ####ADKINS LABORATORYCLIA [id number] [place] [address] [place] Platelets (Bld) [#/Vol] 218 10*3/uL Normal 150-400 [facility] Comment on above: Order Comment: Speci men Type: BLOOD SPECIMENOrdering Facility: [facility] Address: [address] [place] [address] [place] [address] Performed By: #### 5 7021-8 ####ADKINS LABORATORYCLIA [id number] [place] [address] [place] RBC (Bld) [#/Vol] 3.57 10*6/uL Low 4.20-6.00 [place] Comment on above: Order Comment: Speci men Type: BLOOD SPECIMENOrdering Facility: [facility] Address: [address] [place] [address] Performed By: #### 5 7021-8 ####ADKINS LABORATORYCLIA [id number] [address] WBC (Bld) [#/Vol] 6.26 10*3/uL Normal 3.70-11.00 [place] Comment on above: Order Comment: Speci men Type: BLOOD SPECIMENOrdering Facility: [facility] Address: [address] [place] [address] Performed By: #### 5 7021-8 ####ADKINS LABORATORYCLIA [id number] [address] CONSULT PROGon 07-17-2024 CONSULT PROG Normal [facility] Comprehensive metabolic 2000 panelon 07-17-2024 Albumin [Mass/Vol] 3.5 g/dL Low 3.9-4.9 [facility] Comment on above: Order Comment: Speci men Type: BLOOD SPECIMENOrdering Facility: [facility] Address: [address] [place] [address] Performed By: #### 2 4323-8 ####ADKINS LABORATORYCLIA [id number] [address] ALP [Catalytic activity/Vol] 114 U/L High 38-113 [facility] Comment on above: Order Comment: Speci men Type: BLOOD SPECIMENOrdering Facility: [facility] Address: [address] [place] [address] Performed By: #### 2 4323-8 ####ADKINS LABORATORYCLIA [id number] [address] ALT [Catalytic activity/Vol] 10 U/L Normal 10-54 [facility] Comment on above: Order Comment: Speci men Type: BLOOD SPECIMENOrdering Facility: [facility] Address: [address] [place] [address] Performed By: #### 2 4323-8 ####ADKINS LABORATORYCLIA [id number] [place] [address] [place] Anion gap [Moles/Vol] 11 mmol/L Normal 8-15 [facility] Comment on above: Order Comment: Speci men Type: BLOOD SPECIMENOrdering Facility: [facility] Address: [address] [place] [address] Performed By: #### 2 4323-8 ####ADKINS LABORATORYCLIA [id number] [address] [place] AST [Catalytic activity/Vol] 13 U/L Low 14-40 [facility] Comment on above: Order Comment: Speci men Type: BLOOD SPECIMENOrdering Facility: [facility] Address: [address] [place] [address] Performed By: #### 2 4323-8 ####ADKINS LABORATORYCLIA [id number] [address] [place] Bilirubin [Mass/Vol] 0.3 mg/dL Normal 0.2-1.3 [facility] Comment on above: Order Comment: Speci men Type: BLOOD SPECIMENOrdering Facility: [facility] Address: [address] [place] [address] Performed By: #### 2 4323-8 ####ADKINS LABORATORYCLIA [id number] [address] [place] Calcium [Mass/Vol] 9.7 mg/dL Normal 8.5-10.2 [facility] Comment on above: Order Comment: Speci men Type: BLOOD SPECIMENOrdering Facility: [facility] Address: [address] [place] [address] Performed By: #### 2 4323-8 ####ADKINS LABORATORYCLIA [id number] [place] [address] [place] Chloride [Moles/Vol] 112 mmol/L High 98-107 [facility] Comment on above: Order Comment: Speci men Type: BLOOD SPECIMENOrdering Facility: [facility] Address: [address] [place] [address] Performed By: #### 2 4323-8 ####ADKINS LABORATORYCLIA [id number] [place] [address] [place] CO2 [Moles/Vol] 22 mmol/L Normal 22-30 [facility] Comment on above: Order Comment: Luz vaughan Type: BLOOD SPECIMENOrdering Facility: [facility] Address: [address] [place] [address] Performed By: #### 2 4323-8 ####ADKINS LABORATORYCLIA [id number] [address] [place] Creatinine [Mass/Vol] 5.50 mg/dL High 0.73-1.22 [facility] Comment on above: Order Comment: Luz vaughan Type: BLOOD SPECIMENOrdering Facility: [facility] Address: [address] [place] [address] Performed By: #### 2 4323-8 ####ADKINS LABORATORYCLIA [id number] [address] Creatinine and Glomerular filtration rate.predicted panel (S/P/Bld) 11 mL/min/1.73m??? Low >=60 [facility] Comment on above: Order Comment: Luz vaughan Type: BLOOD SPECIMENOrdering Facility: [facility] Address: [address] [place] [address] Result Comment: Breanne mated Glomerular Filtration Rate [...] Performed By: #### 2 4323-8 ####ADKINS LABORATORYCLIA [id number] [address] [place] Glucose [Mass/Vol] 84 mg/dL Normal 74-99 [facility] Comment on above: Order Comment: Brooksjonas vaughan Type: BLOOD SPECIMENOrdering Facility: [facility] Address: [address] [place] [address] Result Comment: The [place] [employer] (ADA) provides guidance for cutoff [...] Standards of Medical Care in Diabetes 2016, [place] [employer]. Diabetes Care. 2016.39(Suppl 1). Performed By: #### 2 4323-8 ####ADKINS LABORATORYCLIA [id number] [place] [address] [place] Potassium [Moles/Vol] 5.2 mmol/L High 3.7-5.1 [facility] Comment on above: Order Comment: Speci men Type: BLOOD SPECIMENOrdering Facility: [facility] Address: [address] [place] [address] Performed By: #### 2 4323-8 ####ADKINS LABORATORYCLIA [id number] [place] [address] [place] Protein [Mass/Vol] 6.3 g/dL Normal 6.3-8.0 [facility] Comment on above: Order Comment: Speci men Type: BLOOD SPECIMENOrdering Facility: [facility] Address: [address] [place] [address] Performed By: #### 2 4323-8 ####ADKINS LABORATORYCLIA [id number] [place] [address] [place] Sodium [Moles/Vol] 145 mmol/L High 136-144 [facility] Comment on above: Order Comment: Speci men Type: BLOOD SPECIMENOrdering Facility: [facility] Address: [address] [place] [address] Performed By: #### 2 4323-8 ####ADKINS LABORATORYCLIA [id number] [place] [address] [place] Urea nitrogen [Mass/Vol] 82 mg/dL High 9-24 [facility] Comment on above: Order Comment: Brooksi men Type: BLOOD SPECIMENOrdering Facility: [facility] Address: [address] [place] [address] Performed By: #### 2 4323-8 ####ADKINS LABORATORYCLIA [id number] [place] [address] [place] NURSING PROGon 07-17-2024 NURSING PROG Normal [facility] NUTRITIONon 07-17-2024 NUTRITION Normal [facility] CASE MANAGEMon 07-16-2024 CASE MANAGEM [facility] CBC W Auto Differential pane l (Bld)on 07-16-2024 Basophils (Bld) [#/Vol] 10*3/uL Normal <0.11 [facility] Comment on above: Order Comment: Speci men Type: BLOOD SPECIMENOrdering Facility: [facility] Address: [address] [place] [address] Performed By: #### 5 7021-8 ####ADKINS LABORATORYCLIA [id number] [place] [address] [place] Basophils/100 WBC (Bld) 0.1 % Normal [facility] Comment on above: Order Comment: Speci men Type: BLOOD SPECIMENOrdering Facility: [facility] Address: [address] [place] [address] Performed By: #### 5 7021-8 ####ADKINS LABORATORYCLIA [id number] [place] [address] [place] Differential cell count method Nom (Bld) Auto Normal [facility] Comment on above: Order Comment: Speci men Type: BLOOD SPECIMENOrdering Facility: [facility] Address: [address] [place] [address] Performed By: #### 5 7021-8 ####ADKINS LABORATORYCLIA [id number] [place] [address] [place] Eosinophils (Bld) [#/Vol] 0.21 10*3/uL Normal <0.46 [facility] Comment on above: Order Comment: Speci men Type: BLOOD SPECIMENOrdering Facility: [facility] Address: [address] [place] [address] Performed By: #### 5 7021-8 ####ADKINS LABORATORYCLIA [id number] [place] [address] [place] Eosinophils/100 WBC (Bld) 3.1 % Normal [facility] Comment on above: Order Comment: Speci men Type: BLOOD SPECIMENOrdering Facility: [facility] Address: [address] [place] [address] Performed By: #### 5 7021-8 ####ADKINS LABORATORYCLIA [id number] [place] [address] [place] Erythrocyte distribution width (RBC) [Ratio] 13.3 % Normal 11.5-15.0 [facility] Comment on above: Order Comment: Speci men Type: BLOOD SPECIMENOrdering Facility: [facility] Address: [address] [place] [address] Performed By: #### 5 7021-8 ####ADKINS LABORATORYCLIA [id number] [place] [address] [place] Hematocrit (Bld) [Volume fraction] 29.1 % Low 39.0-51.0 [facility] Comment on above: Order Comment: Speci men Type: BLOOD SPECIMENOrdering Facility: [facility] Address: [address] [place] [address] Performed By: #### 5 7021-8 ####ADKINS LABORATORYCLIA [id number] [place] [address] [place] Hemoglobin (Bld) [Mass/Vol] 9.2 g/dL Low 13.0-17.0 [facility] Comment on above: Order Comment: Speci men Type: BLOOD SPECIMENOrdering Facility: [facility] Address: [address] [place] [address] Performed By: #### 5 7021-8 ####ADKINS LABORATORYCLIA [id number] [place] [address] [place] Immature granulocytes (Bld) [#/Vol] 0.04 10*3/uL Normal <0.10 [facility] Comment on above: Order Comment: Speci men Type: BLOOD SPECIMENOrdering Facility: [facility] Address: [address] [place] [address] Performed By: #### 5 7021-8 ####ADKINS LABORATORYCLIA [id number] [place] [address] [facility] [place] Immature granulocytes/100 WBC (Bld) 0.6 % Normal [facility] Comment on above: Order Comment: Speci men Type: BLOOD SPECIMENOrdering Facility: [facility] Address: [address] [place] [address] Performed By: #### 5 7021-8 ####ADKINS LABORATORYCLIA [id number] [address] Lymphocytes (Bld) [#/Vol] 0.97 10*3/uL Low 1.00-4.00 [facility] Comment on above: Order Comment: Speci men Type: BLOOD SPECIMENOrdering Facility: [facility] Address: [address] [place] [address] Performed By: #### 5 7021-8 ####ADKINS LABORATORYCLIA [id number] [address] Lymphocytes/100 WBC (Bld) 14.4 % Normal [facility] Comment on above: Order Comment: Speci men Type: BLOOD SPECIMENOrdering Facility: [facility] Address: [address] [place] [address] Performed By: #### 5 7021-8 ####ADKINS LABORATORYCLIA [id number] [address] MCH (RBC) [Entitic mass] 28.4 pg Normal 26.0-34.0 [facility] Comment on above: Order Comment: Speci men Type: BLOOD SPECIMENOrdering Facility: [facility] Address: [address] [place] [address] Performed By: #### 5 7021-8 ####ADKINS LABORATORYCLIA [id number] [address] MCHC (RBC) [Mass/Vol] 31.6 g/dL Normal 30.5-36.0 [facility] Comment on above: Order Comment: Speci men Type: BLOOD SPECIMENOrdering Facility: [facility] Address: [address] [place] [address] Performed By: #### 5 7021-8 ####ADKINS LABORATORYCLIA [id number] [address] MCV (RBC) [Entitic vol] 89.8 fL Normal 80.0-100.0 [facility] Comment on above: Order Comment: Speci men Type: BLOOD SPECIMENOrdering Facility: [facility] Address: [facility] [place] [address] Performed By: #### 5 7021-8 ####ADKINS LABORATORYCLIA [id number] [place] [address] [place] Monocytes (Bld) [#/Vol] 0.81 10*3/uL Normal <0.87 [facility] Comment on above: Order Comment: Speci men Type: BLOOD SPECIMENOrdering Facility: [facility] Address: [address] [place] [address] Performed By: #### 5 7021-8 ####ADKINS LABORATORYCLIA [id number] [address] [place] Monocytes/100 WBC (Bld) 12.0 % Normal [facility] Comment on above: Order Comment: Speci men Type: BLOOD SPECIMENOrdering Facility: [facility] Address: [address] [place] [address] Performed By: #### 5 7021-8 ####ADKINS LABORATORYCLIA [id number] [place] [address] [place] Neutrophils (Bld) [#/Vol] 4.69 10*3/uL Normal 1.45-7.50 [facility] Comment on above: Order Comment: Speci men Type: BLOOD SPECIMENOrdering Facility: [facility] Address: [address] [place] [address] Performed By: #### 5 7021-8 ####ADKINS LABORATORYCLIA [id number] [place] [address] [place] Neutrophils/100 WBC (Bld) 69.8 % Normal [facility] Comment on above: Order Comment: Speci men Type: BLOOD SPECIMENOrdering Facility: [facility] Address: [address] [place] [address] Performed By: #### 5 7021-8 ####ADKINS LABORATORYCLIA [id number] [place] [address] [place] Nucleated RBC (Bld) [#/Vol] 10*3/uL Normal <0.01 [facility] Comment on above: Order Comment: Speci men Type: BLOOD SPECIMENOrdering Facility: [facility] Address: [address] [place] [address] Performed By: #### 5 7021-8 ####ADKINS LABORATORYCLIA [id number] [place] [address] [place] Nucleated RBC/100 WBC (Bld) [Ratio] 0.0 /100 WBC Normal [facility] Comment on above: Order Comment: Speci men Type: BLOOD SPECIMENOrdering Facility: [facility] Address: [address] [place] [address] Performed By: #### 5 7021-8 ####ADKINS LABORATORYCLIA [id number] [place] [address] [place] Platelet mean volume (Bld) [Entitic vol] 9.2 fL Normal 9.0-12.7 [facility] Comment on above: Order Comment: Speci men Type: BLOOD SPECIMENOrdering Facility: [facility] Address: [address] [place] [address] Performed By: #### 5 7021-8 ####ADKINS LABORATORYCLIA [id number] [place] [address] [place] Platelets (Bld) [#/Vol] 188 10*3/uL Normal 150-400 [facility] Comment on above: Order Comment: Speci men Type: BLOOD SPECIMENOrdering Facility: [facility] Address: [address] [place] [address] Performed By: #### 5 7021-8 ####ADKINS LABORATORYCLIA [id number] [place] [address] [place] RBC (Bld) [#/Vol] 3.24 10*6/uL Low 4.20-6.00 [place] Comment on above: Order Comment: Speci men Type: BLOOD SPECIMENOrdering Facility: [facility] Address: [address] [place] [address] Performed By: #### 5 7021-8 ####ADKINS LABORATORYCLIA [id number] [place] [address] [place] WBC (Bld) [#/Vol] 6.73 10*3/uL Normal 3.70-11.00 [place] Comment on above: Order Comment: Speci men Type: BLOOD SPECIMENOrdering Facility: [facility] Address: [address] [place] [address] Performed By: #### 5 7021-8 ####HARROLD LABORATORYCLIA [id number] [place] [address] [place] CNCOon 07-16-2024 CNCO Letter Text [facility] CNDSon 07-16-2024 CNDS [facility] CNPNon 07-16-2024 CNPN Telephone (HCSIND) -- JOSÉ MANUEL ASHTON ([id number]) 1960 M T Date Time Provider Department 07/16/24 CLAUDIA CHOW HCSIND During your visit today, we recorded the following information about you: Maribeth Núñez 07/17/2024 8:44 AM Signed Date/Time: 07/17/2024 8:43 AM Spoke with Janell @ phone #: [phone] - Preferred # for contact: [phone] Have you received help from a home care company in the last 60 days? no Are you agreeable to [facility] services? yes What address will we be seeing you at? [address] [facility] [address] Do you have any upcoming appointments or [...] AUTOSHIELD DUO PEN NEEDLE) 30 gauge x 06/16 ndle 1 Applicator four times daily. Facility-Administered [...] managed by this patient by: PATIENT Nusrat ZIGGY Lewis 11/08/[address] Scott: Patient to continue to use the SSI only, no regular scheduled Insulin dosing at this time. Patient's sister has been notified and verbalizes understanding. Richard Hinds RN Problem List As Of [...] HTN (hy (more content not included)... Normal [facility] CONSULT PROGon 07-16-2024 CONSULT PROG Normal [facility] Comprehensive metabolic 2000 panelon 07-16-2024 Albumin [Mass/Vol] 3.2 g/dL Low 3.9-4.9 [facility] Comment on above: Order Comment: Speci men Type: BLOOD SPECIMENOrdering Facility: [facility] Address: [address] [place] [address] Performed By: #### 2 4323-8 ####HARROLD LABORATORYCLIA [id number] [place] [address] [place] ALP [Catalytic activity/Vol] 93 U/L Normal 38-113 [facility] Comment on above: Order Comment: Speci men Type: BLOOD SPECIMENOrdering Facility: [facility] Address: [address] [place] [address] Performed By: #### 2 4323-8 ####ADKINS LABORATORYCLIA [id number] [place] [address] [place] ALT [Catalytic activity/Vol] 10 U/L Normal 10-54 [facility] Comment on above: Order Comment: Speci men Type: BLOOD SPECIMENOrdering Facility: [facility] Address: [address] [place] [address] Performed By: #### 2 4323-8 ####ADKINS LABORATORYCLIA [id number] [place] [address] [place] Anion gap [Moles/Vol] 11 mmol/L Normal 8-15 [facility] Comment on above: Order Comment: Speci men Type: BLOOD SPECIMENOrdering Facility: [facility] Address: [address] [place] [address] Performed By: #### 2 4323-8 ####ADKINS LABORATORYCLIA [id number] [place] [address] [place] AST [Catalytic activity/Vol] 10 U/L Low 14-40 [facility] Comment on above: Order Comment: Speci men Type: BLOOD SPECIMENOrdering Facility: [facility] Address: [address] [place] [address] Performed By: #### 2 4323-8 ####ADKINS LABORATORYCLIA [id number] [place] [address] [place] Bilirubin [Mass/Vol] 0.2 mg/dL Normal 0.2-1.3 [facility] Comment on above: Order Comment: Speci men Type: BLOOD SPECIMENOrdering Facility: [facility] Address: [address] [place] [address] Performed By: #### 2 4323-8 ####ADKINS LABORATORYCLIA [id number] [place] [address] [place] Calcium [Mass/Vol] 9.2 mg/dL Normal 8.5-10.2 [facility] Comment on above: Order Comment: Speci men Type: BLOOD SPECIMENOrdering Facility: [facility] Address: [address] [place] [address] Performed By: #### 2 4323-8 ####ADKINS LABORATORYCLIA [id number] [place] [address] [place] Chloride [Moles/Vol] 109 mmol/L High 98-107 [facility] Comment on above: Order Comment: Speci men Type: BLOOD SPECIMENOrdering Facility: [facility] Address: [address] [place] [address] Performed By: #### 2 4323-8 ####ADKINS LABORATORYCLIA [id number] [place] [address] [place] CO2 [Moles/Vol] 24 mmol/L Normal 22-30 [facility] Comment on above: Order Comment: Speci men Type: BLOOD SPECIMENOrdering Facility: [facility] Address: [address] [place] [address] Performed By: #### 2 4323-8 ####ADKINS LABORATORYCLIA [id number] [address] [place] [facility] Creatinine [Mass/Vol] 5.71 mg/dL High 0.73-1.22 [facility] Comment on above: Order Comment: Luz vaughan Type: BLOOD SPECIMENOrdering Facility: [facility] Address: [address] [place] [address] Performed By: #### 2 4323-8 ####[facility] LABORATORYCLIA [id number] [address] Creatinine and Glomerular filtration rate.predicted panel (S/P/Bld) 10 mL/min/1.73m??? Low >=60 [facility] Comment on above: Order Comment: Luz vaughan Type: BLOOD SPECIMENOrdering Facility: [facility] Address: [address] [place] [address] Result Comment: Breanne mated Glomerular Filtration Rate [...] Performed By: #### 2 4323-8 ####ADKINS LABORATORYCLIA [id number] [address] [place] [facility] Glucose [Mass/Vol] 115 mg/dL High 74-99 [facility] Comment on above: Order Comment: Luz vaughan Type: BLOOD SPECIMENOrdering Facility: [facility] Address: [address] [place] [address] Result Comment: The [place] Diabetes Association (ADA) provides guidance for cutoff [...] Standards of Medical Care in Diabetes 2016, [place] [employer]. Diabetes Care. 2016.39(Suppl 1). Performed By: #### 2 4323-8 ####ADKINS LABORATORYCLIA [id number] [place] [address] [place] Potassium [Moles/Vol] 5.8 mmol/L High 3.7-5.1 [facility] Comment on above: Order Comment: Speci men Type: BLOOD SPECIMENOrdering Facility: [facility] Address: [address] [place] [address] Performed By: #### 2 4323-8 ####ADKINS LABORATORYCLIA [id number] [place] [address] [place] Protein [Mass/Vol] 5.7 g/dL Low 6.3-8.0 [facility] Comment on above: Order Comment: Speci men Type: BLOOD SPECIMENOrdering Facility: [facility] Address: [address] [place] [address] Performed By: #### 2 4323-8 ####ADKINS LABORATORYCLIA [id number] [place] [address] [place] Sodium [Moles/Vol] 144 mmol/L Normal 136-144 [facility] Comment on above: Order Comment: Brooksi men Type: BLOOD SPECIMENOrdering Facility: [facility] Address: [address] [place] [address] Performed By: #### 2 4323-8 ####ADKINS LABORATORYCLIA [id number] [place] [address] [place] Urea nitrogen [Mass/Vol] 82 mg/dL High 9-24 [facility] Comment on above: Order Comment: Brooksi men Type: BLOOD SPECIMENOrdering Facility: [facility] Address: [address] [place] [address] Performed By: #### 2 4323-8 ####ADKINS LABORATORYCLIA [id number] [place] [address] [place] THERAPY NTon 07-16-2024 THERAPY NT Normal [facility] CASE MANAGEMon 07-15-2024 CASE MANAGEM Normal [facility] CBC W Auto Differential pane l (Bld)on 07-15-2024 Basophils (Bld) [#/Vol] 10*3/uL Normal <0.11 [facility] Comment on above: Order Comment: Speci men Type: BLOOD SPECIMENOrdering Facility: [facility] Address: [address] [place] [address] Performed By: #### 5 7021-8 ####ADKINS LABORATORYCLIA [id number] [place] [address] [place] Basophils/100 WBC (Bld) 0.0 % Normal [facility] Comment on above: Order Comment: Speci men Type: BLOOD SPECIMENOrdering Facility: [facility] Address: [address] [place] [address] Performed By: #### 5 7021-8 ####ADKINS LABORATORYCLIA [id number] [place] [address] [place] Differential cell count method Nom (Bld) Auto Normal [facility] Comment on above: Order Comment: Speci men Type: BLOOD SPECIMENOrdering Facility: [facility] Address: [address] [place] [address] Performed By: #### 5 7021-8 ####ADKINS LABORATORYCLIA [id number] [place] [address] [place] Eosinophils (Bld) [#/Vol] 0.10 10*3/uL Normal <0.46 [facility] Comment on above: Order Comment: Speci men Type: BLOOD SPECIMENOrdering Facility: [facility] Address: [address] [place] [address] Performed By: #### 5 7021-8 ####ADKINS LABORATORYCLIA [id number] [place] [address] [place] Eosinophils/100 WBC (Bld) 1.7 % Normal [facility] Comment on above: Order Comment: Speci men Type: BLOOD SPECIMENOrdering Facility: [facility] Address: [address] [place] [address] Performed By: #### 5 7021-8 ####ADKINS LABORATORYCLIA [id number] [address] Erythrocyte distribution width (RBC) [Ratio] 13.5 % Normal 11.5-15.0 [facility] Comment on above: Order Comment: Speci men Type: BLOOD SPECIMENOrdering Facility: [facility] Address: [address] [place] [address] Performed By: #### 5 7021-8 ####ADKINS LABORATORYCLIA [id number] [address] [place] Hematocrit (Bld) [Volume fraction] 30.0 % Low 39.0-51.0 [facility] Comment on above: Order Comment: Speci men Type: BLOOD SPECIMENOrdering Facility: [facility] Address: [address] [place] [address] Performed By: #### 5 7021-8 ####ADKINS LABORATORYCLIA [id number] [address] [place] Hemoglobin (Bld) [Mass/Vol] 9.6 g/dL Low 13.0-17.0 [facility] Comment on above: Order Comment: Speci men Type: BLOOD SPECIMENOrdering Facility: [facility] Address: [address] [place] [address] Performed By: #### 5 7021-8 ####ADKINS LABORATORYCLIA [id number] [address] [place] Immature granulocytes (Bld) [#/Vol] 0.03 10*3/uL Normal <0.10 [facility] Comment on above: Order Comment: Speci men Type: BLOOD SPECIMENOrdering Facility: [facility] Address: [address] [place] [address] Performed By: #### 5 7021-8 ####ADKINS LABORATORYCLIA [id number] [address] Immature granulocytes/100 WBC (Bld) 0.5 % Normal [facility] Comment on above: Order Comment: Speci men Type: BLOOD SPECIMENOrdering Facility: [facility] Address: [address] [place] [address] Performed By: #### 5 7021-8 ####ADKINS LABORATORYCLIA [id number] [address] [place] Lymphocytes (Bld) [#/Vol] 1.09 10*3/uL Normal 1.00-4.00 [facility] Comment on above: Order Comment: Speci men Type: BLOOD SPECIMENOrdering Facility: [facility] Address: [address] [place] [address] Performed By: #### 5 7021-8 ####ADKINS LABORATORYCLIA [id number] [address] Lymphocytes/100 WBC (Bld) 19.1 % Normal [facility] Comment on above: Order Comment: Speci men Type: BLOOD SPECIMENOrdering Facility: [facility] Address: [address] [place] [address] Performed By: #### 5 7021-8 ####ADKINS LABORATORYCLIA [id number] [address] MCH (RBC) [Entitic mass] 28.8 pg Normal 26.0-34.0 [facility] Comment on above: Order Comment: Speci men Type: BLOOD SPECIMENOrdering Facility: [facility] Address: [address] [place] [address] Performed By: #### 5 7021-8 ####ADKINS LABORATORYCLIA [id number] [address] MCHC (RBC) [Mass/Vol] 32.0 g/dL Normal 30.5-36.0 [facility] Comment on above: Order Comment: Speci men Type: BLOOD SPECIMENOrdering Facility: [facility] Address: [address] [place] [address] Performed By: #### 5 7021-8 ####ADKINS LABORATORYCLIA [id number] [address] MCV (RBC) [Entitic vol] 90.1 fL Normal 80.0-100.0 [facility] Comment on above: Order Comment: Speci men Type: BLOOD SPECIMENOrdering Facility: [facility] Address: [address] [place] [address] Performed By: #### 5 7021-8 ####ADKINS LABORATORYCLIA [id number] [place] [address] [place] Monocytes (Bld) [#/Vol] 0.67 10*3/uL Normal <0.87 [facility] Comment on above: Order Comment: Speci men Type: BLOOD SPECIMENOrdering Facility: [facility] Address: [address] [place] [address] Performed By: #### 5 7021-8 ####ADKINS LABORATORYCLIA [id number] [address] [place] Monocytes/100 WBC (Bld) 11.7 % Normal [facility] Comment on above: Order Comment: Speci men Type: BLOOD SPECIMENOrdering Facility: [facility] Address: [address] [place] [address] Performed By: #### 5 7021-8 ####ADKINS LABORATORYCLIA [id number] [place] [address] [place] Neutrophils (Bld) [#/Vol] 3.83 10*3/uL Normal 1.45-7.50 [facility] Comment on above: Order Comment: Speci men Type: BLOOD SPECIMENOrdering Facility: [facility] Address: [address] [place] [address] Performed By: #### 5 7021-8 ####ADKINS LABORATORYCLIA [id number] [place] [address] [place] Neutrophils/100 WBC (Bld) 67.0 % Normal [facility] Comment on above: Order Comment: Speci men Type: BLOOD SPECIMENOrdering Facility: [facility] Address: [address] [place] [address] Performed By: #### 5 7021-8 ####ADKINS LABORATORYCLIA [id number] [place] [address] [place] Nucleated RBC (Bld) [#/Vol] 10*3/uL Normal <0.01 [facility] Comment on above: Order Comment: Speci men Type: BLOOD SPECIMENOrdering Facility: [facility] Address: [address] [place] [address] Performed By: #### 5 7021-8 ####ADKINS LABORATORYCLIA [id number] [place] [address] [place] Nucleated RBC/100 WBC (Bld) [Ratio] 0.0 /100 WBC Normal [facility] Comment on above: Order Comment: Speci men Type: BLOOD SPECIMENOrdering Facility: [facility] Address: [address] [place] [address] Performed By: #### 5 7021-8 ####ADKINS LABORATORYCLIA [id number] [place] [address] [place] Platelet mean volume (Bld) [Entitic vol] 9.5 fL Normal 9.0-12.7 [facility] Comment on above: Order Comment: Speci men Type: BLOOD SPECIMENOrdering Facility: [facility] Address: [address] [place] [address] Performed By: #### 5 7021-8 ####ADK[facility] LABORATORYCLIA [id number] [place] [address] [place] Platelets (Bld) [#/Vol] 214 10*3/uL Normal 150-400 [facility] Comment on above: Order Comment: Speci men Type: BLOOD SPECIMENOrdering Facility: [facility] Address: [address] [place] [address] Performed By: #### 5 7021-8 ####ADKINS LABORATORYCLIA [id number] [place] [address] [place] RBC (Bld) [#/Vol] 3.33 10*6/uL Low 4.20-6.00 [place] Comment on above: Order Comment: Speci men Type: BLOOD SPECIMENOrdering Facility: [facility] Address: [address] [place] [address] Performed By: #### 5 7021-8 ####ADKINS LABORATORYCLIA [id number] [place] [address] [place] WBC (Bld) [#/Vol] 5.72 10*3/uL Normal 3.70-11.00 [place] Comment on above: Order Comment: Speci men Type: BLOOD SPECIMENOrdering Facility: [facility] Address: [facility] [place] [address] Performed By: #### 5 7021-8 ####H[facility] LABORATORYCLIA [id number] [place], [place] [address] [place] [address] [place] CONSULT PROGon 07-15-2024 CONSULT PROG Normal [facility] Magnesium SerPl-mCncon 07-15 Magnesium [Mass/Vol] 2.2 mg/dL Normal 1.7-2.3 [facility] Comment on above: Order Comment: Speci men Type: BLOOD SPECIMENOrdering Facility: [facility] Address: [facility] [place] [address] Performed By: #### 2 4362-6, 99903-6 ####ADKINS LABORATORYCLIA [id number] [place] [id number] [place] Renal function 2000 panelon 07-15-2024 Albumin [Mass/Vol] 3.1 g/dL Low 3.9-4.9 [facility] Comment on above: Order Comment: Speci men Type: BLOOD SPECIMENOrdering Facility: [facility] Address: [facility] [place] [address] Performed By: #### 2 4362-6, ####ADKNIS LABORATORYCLIA [id number] [place] [id number] [place] Anion gap [Moles/Vol] 13 mmol/L Normal 8-15 [facility] Comment on above: Order Comment: Speci men Type: BLOOD SPECIMENOrdering Facility: [facility] Address: [address] [place], [place] [address] [address] Performed By: #### 2 4362-6, ####ADKINS LABORATORYCLIA [id number] [place] [id number] [place] Calcium [Mass/Vol] 8.8 mg/dL Normal 8.5-10.2 [facility] Comment on above: Order Comment: Speci men Type: BLOOD SPECIMENOrdering Facility: [facility] Address: [address] [place], [place] [address] [address] Performed By: #### 2 4362-6, ####ADKINS LABORATORYCLIA [id number] [place] [address] [place] Chloride [Moles/Vol] 108 mmol/L High 98-107 [facility] Comment on above: Order Comment: Luz vaughan Type: BLOOD SPECIMENOrdering Facility: [facility] Address: [address] [place] [address] Performed By: #### 2 4362-6, ####ADKINS LABORATORYCLIA [id number] [place] [id number] [place] CO2 [Moles/Vol] 24 mmol/L Normal 22-30 [facility] Comment on above: Order Comment: Luz vaughan Type: BLOOD SPECIMENOrdering Facility: [facility] Address: [address] [place] [address] Performed By: #### 2 4362-6, ####ADKINS LABORATORYCLIA [id number] [place] [address] [place] Creatinine [Mass/Vol] 5.17 mg/dL High 0.73-1.22 [facility] Comment on above: Order Comment: Luz vaughan Type: BLOOD SPECIMENOrdering Facility: [facility] Address: [address] [place] [address] Performed By: #### 2 4362-6, ####ADKINS LABORATORYCLIA [id number] [address] Creatinine and Glomerular filtration rate.predicted panel (S/P/Bld) 12 mL/min/1.73m??? Low >=60 [facility] Comment on above: Order Comment: Luz vaughan Type: BLOOD SPECIMENOrdering Facility: [facility] Address: [address] [place] [address] Result Comment: Breanne mated Glomerular Filtration Rate [...] actual GFR. Performed By: #### 2 4362-6, ####ADKINS LABORATORYCLIA [id number] [place] [id number] [place] Glucose [Mass/Vol] 160 mg/dL High 74-99 [facility] Comment on above: Order Comment: Luz vaughan Type: BLOOD SPECIMENOrdering Facility: [facility] Address: [address] [place], [place] [address] Result Comment: The [place] Diabetes Association (ADA) provides guidance for cutoff [...] Standards of Medical Care in Diabetes 2016, [place] [employer]. Diabetes Care. 2016.39(Suppl 1). Performed By: #### 2 4362-6, ####ADKINS LABORATORYCLIA [id number] [place] [id number] [place] Phosphate [Mass/Vol] 6.6 mg/dL High 2.7-4.8 [facility] Comment on above: Order Comment: Luz vaughan Type: BLOOD SPECIMENOrdering Facility: [facility] Address: [address] [place] [address] Performed By: #### 2 4362-6, ####ADKINS LABORATORYCLIA [id number] [place] [address] [place] Potassium [Moles/Vol] 5.3 mmol/L High 3.7-5.1 [facility] Comment on above: Order Comment: Luz vaughan Type: BLOOD SPECIMENOrdering Facility: [facility] Address: [address] [place] [address] Performed By: #### 2 4362-6, ####ADKINS LABORATORYCLIA [id number] [place] [address] [place] Sodium [Moles/Vol] 145 mmol/L High 136-144 [facility] Comment on above: Order Comment: Speci men Type: BLOOD SPECIMENOrdering Facility: [facility] Address: [address] [place] [address] Performed By: #### 2 4362-6, ####ADKINS LABORATORYCLIA [id number] [place] [id number] [place] Urea nitrogen [Mass/Vol] 79 mg/dL High 9-24 [facility] Comment on above: Order Comment: Speci men Type: BLOOD SPECIMENOrdering Facility: [facility] Address: [address] [place] [address] Performed By: #### 2 4362-6, ####ADKINS LABORATORYCLIA [id number] [place] [address] [place] ALLIED HEALTHon 07-14-2024 ALLIED HEALTH Normal [facility] Albumin SerPl-mCncon 025 Albumin [Mass/Vol] 3.0 g/dL Low 3.9-4.9 [facility] Comment on above: Order Comment: Speci men Type: BLOOD SPECIMENOrdering Facility: [facility] Address: [address] [place] [address] Performed By: #### 1 751-7, 3040-3, 32867-1, 42960-7, 2777-1, ####ADKINS LABORATORYCLIA [id number] [place] [id number] [place] Basic metabolic 2000 panelon 07-14-2024 Anion gap [Moles/Vol] 13 mmol/L Normal 8-15 [facility] Comment on above: Order Comment: Speci men Type: BLOOD SPECIMENOrdering Facility: [facility] Address: [address] [place] [address] Performed By: #### 1 751-7, 3040-3, 64619-1, 25054-0, 2777-1, ####ADKINS LABORATORYCLIA [id number] [place] [address] [place] Calcium [Mass/Vol] 8.8 mg/dL Normal 8.5-10.2 [facility] Comment on above: Order Comment: Speci men Type: BLOOD SPECIMENOrdering Facility: [facility] Address: [address] [place] [address] Performed By: #### 1 751-7, 3040-3, 27154-9, 67752-1, 2777-1, 44865-9 ####HARROLD LABORATORYCLIA [id number] [place] [address] [place] Chloride [Moles/Vol] 105 mmol/L Normal 98-107 [facility] Comment on above: Order Comment: Speci men Type: BLOOD SPECIMENOrdering Facility: [facility] Address: [address] [place] [address] Performed By: #### 1 751-7, 3040-3, 38912-6, 81631-0, 2777-1, 57750-4 ####HARROLD LABORATORYCLIA [id number] [place] [address] [place] CO2 [Moles/Vol] 24 mmol/L Normal 22-30 [facility] Comment on above: Order Comment: Speci men Type: BLOOD SPECIMENOrdering Facility: [facility] Address: [address] [place] [address] Performed By: #### 1 751-7, 3040-3, 62839-3, 61232-3, 2777-1, 78458-4 ####HARROLD LABORATORYCLIA [id number] [place] [id number] [place] Creatinine [Mass/Vol] 5.34 mg/dL High 0.73-1.22 [facility] Comment on above: Order Comment: Speci men Type: BLOOD SPECIMENOrdering Facility: [facility] Address: [address] [place] [address] Performed By: #### 1 751-7, 3040-3, 38754-9, 26879-8, 2777-1, 42961-7 ####HARROLD LABORATORYCLIA [id number] [address] Creatinine and Glomerular filtration rate.predicted panel (S/P/Bld) 11 mL/min/1.73m??? Low >=60 [facility] Comment on above: Order Comment: Luz vaughan Type: BLOOD SPECIMENOrdering Facility: [facility] Address: [address] [place] [address] Result Comment: Breanne mated Glomerular Filtration Rate [...] GFR. Performed By: #### 1 751-7, 3040-3, 75531-9, 76960-7, 2777-1, 61370-3 ####HARROLD LABORATORYCLIA [id number] [address] Glucose [Mass/Vol] 59 mg/dL Low 74-99 [facility] Comment on above: Order Comment: Luz vaughan Type: BLOOD SPECIMENOrdering Facility: [facility] Address: [address] [place] [address] Result Comment: The [place] Diabetes Association (ADA) provides guidance for cutoff [...] Standards of Medical Care in Diabetes 2016, [place] [employer]. Diabetes Care. 2016.39(Suppl 1). Performed By: #### 1 751-7, 3040-3, 49997-1, 92673-7, 2777-1, 45659-8 ####HARROLD LABORATORYCLIA [id number] [place] [id number] [place] Potassium [Moles/Vol] 4.7 mmol/L Normal 3.7-5.1 [facility] Comment on above: Order Comment: Speci men Type: BLOOD SPECIMENOrdering Facility: [facility] Address: [address] [place] [address] Performed By: #### 1 751-7, 3040-3, 35353-4, 50659-8, 2777-1, 45716-8 ####HARROLD LABORATORYCLIA [id number] [address] [place] [facility] Sodium [Moles/Vol] 142 mmol/L Normal 136-144 [facility] Comment on above: Order Comment: Speci men Type: BLOOD SPECIMENOrdering Facility: [facility] Address: [address] [place] [address] Performed By: #### 1 751-7, 3040-3, 52871-6, 59680-0, 2777-1, 18898-8 ####HARROLD LABORATORYCLIA [id number] [place] [address] [place] Urea nitrogen [Mass/Vol] 71 mg/dL High 9-24 [facility] Comment on above: Order Comment: Speci men Type: BLOOD SPECIMENOrdering Facility: [facility] Address: [address] [place] [address] Performed By: #### 1 751-7, 3040-3, 78472-5, 11447-6, 2777-1, 99130-8 ####HARROLD LABORATORYCLIA [id number] [address] [place] CBC W Auto Differential pane l (Bld)on 07-14-2024 Basophils (Bld) [#/Vol] 10*3/uL Normal <0.11 [facility] Comment on above: Order Comment: Speci men Type: BLOOD SPECIMENOrdering Facility: [facility] Address: [address] [place] [address] Performed By: #### 5 7021-8 ####HARROLD LABORATORYCLIA [id number] [address] Basophils/100 WBC (Bld) 0.2 % Normal [facility] Comment on above: Order Comment: Speci men Type: BLOOD SPECIMENOrdering Facility: [facility] Address: [address] [place] [address] Performed By: #### 5 7021-8 ####ADKINS LABORATORYCLIA [id number] [place] [address] [place] Differential cell count method Nom (Bld) Auto Normal [facility] Comment on above: Order Comment: Speci men Type: BLOOD SPECIMENOrdering Facility: [facility] Address: [address] [place] [address] Performed By: #### 5 7021-8 ####ADKINS LABORATORYCLIA [id number] [place] [address] [place] Eosinophils (Bld) [#/Vol] 0.10 10*3/uL Normal <0.46 [facility] Comment on above: Order Comment: Speci men Type: BLOOD SPECIMENOrdering Facility: [facility] Address: [address] [place] [address] Performed By: #### 5 7021-8 ####ADKINS LABORATORYCLIA [id number] [place] [address] [place] Eosinophils/100 WBC (Bld) 2.2 % Normal [facility] Comment on above: Order Comment: Speci men Type: BLOOD SPECIMENOrdering Facility: [facility] Address: [address] [place] [address] Performed By: #### 5 7021-8 ####ADKINS LABORATORYCLIA [id number] [place] [address] [place] Erythrocyte distribution width (RBC) [Ratio] 13.3 % Normal 11.5-15.0 [facility] Comment on above: Order Comment: Speci men Type: BLOOD SPECIMENOrdering Facility: [facility] Address: [address] [place] [address] Performed By: #### 5 7021-8 ####ADKINS LABORATORYCLIA [id number] [place] [address] [place] Hematocrit (Bld) [Volume fraction] 29.8 % Low 39.0-51.0 [facility] Comment on above: Order Comment: Speci men Type: BLOOD SPECIMENOrdering Facility: [facility] Address: [address] [place] [address] Performed By: #### 5 7021-8 ####ADKINS LABORATORYCLIA [id number] [place] [address] [place] Hemoglobin (Bld) [Mass/Vol] 9.6 g/dL Low 13.0-17.0 [facility] Comment on above: Order Comment: Speci men Type: BLOOD SPECIMENOrdering Facility: [facility] Address: [address] [place] [address] Performed By: #### 5 7021-8 ####ADKINS LABORATORYCLIA [id number] [place] [address] [place] Immature granulocytes (Bld) [#/Vol] 0.03 10*3/uL Normal <0.10 [facility] Comment on above: Order Comment: Speci men Type: BLOOD SPECIMENOrdering Facility: [facility] Address: [address] [place] [address] Performed By: #### 5 7021-8 ####ADKINS LABORATORYCLIA [id number] [address] [place] Immature granulocytes/100 WBC (Bld) 0.7 % Normal [facility] Comment on above: Order Comment: Speci men Type: BLOOD SPECIMENOrdering Facility: [facility] Address: [address] [place] [address] Performed By: #### 5 7021-8 ####ADKINS LABORATORYCLIA [id number] [place] [address] [place] Lymphocytes (Bld) [#/Vol] 1.15 10*3/uL Normal 1.00-4.00 [facility] Comment on above: Order Comment: Speci men Type: BLOOD SPECIMENOrdering Facility: [facility] Address: [address] [place] [address] Performed By: #### 5 7021-8 ####ADKINS LABORATORYCLIA [id number] [address] [place] Lymphocytes/100 WBC (Bld) 25.3 % Normal [facility] Comment on above: Order Comment: Speci men Type: BLOOD SPECIMENOrdering Facility: [facility] Address: [address] [place] [address] Performed By: #### 5 7021-8 ####ADK[facility] LABORATORYCLIA [id number] [address] MCH (RBC) [Entitic mass] 28.4 pg Normal 26.0-34.0 [facility] Comment on above: Order Comment: Speci men Type: BLOOD SPECIMENOrdering Facility: [facility] Address: [address] [place] [address] Performed By: #### 5 7021-8 ####[facility] LABORATORYCLIA [id number] [address] MCHC (RBC) [Mass/Vol] 32.2 g/dL Normal 30.5-36.0 [facility] Comment on above: Order Comment: Speci men Type: BLOOD SPECIMENOrdering Facility: [facility] Address: [address] [place] [address] Performed By: #### 5 7021-8 ####ADKINS LABORATORYCLIA [id number] [address] MCV (RBC) [Entitic vol] 88.2 fL Normal 80.0-100.0 [facility] Comment on above: Order Comment: Speci men Type: BLOOD SPECIMENOrdering Facility: [facility] Address: [address] [place] [address] Performed By: #### 5 7021-8 ####ADKINS LABORATORYCLIA [id number] [address] Monocytes (Bld) [#/Vol] 0.45 10*3/uL Normal <0.87 [facility] Comment on above: Order Comment: Speci men Type: BLOOD SPECIMENOrdering Facility: [facility] Address: [address] [place] [address] Performed By: #### 5 7021-8 ####ADKINS LABORATORYCLIA [id number] [place] [address] [place] Monocytes/100 WBC (Bld) 9.9 % Normal [facility] Comment on above: Order Comment: Speci men Type: BLOOD SPECIMENOrdering Facility: [facility] Address: [address] [place] [address] Performed By: #### 5 7021-8 ####ADKINS LABORATORYCLIA [id number] [place] [address] [place] Neutrophils (Bld) [#/Vol] 2.80 10*3/uL Normal 1.45-7.50 [facility] Comment on above: Order Comment: Speci men Type: BLOOD SPECIMENOrdering Facility: [facility] Address: [address] [place] [address] Performed By: #### 5 7021-8 ####ADKINS LABORATORYCLIA [id number] [place] [address] [place] Neutrophils/100 WBC (Bld) 61.7 % Normal [facility] Comment on above: Order Comment: Speci men Type: BLOOD SPECIMENOrdering Facility: [facility] Address: [address] [place] [address] Performed By: #### 5 7021-8 ####ADKINS LABORATORYCLIA [id number] [place] [address] [place] Nucleated RBC (Bld) [#/Vol] 10*3/uL Normal <0.01 [facility] Comment on above: Order Comment: Speci men Type: BLOOD SPECIMENOrdering Facility: [facility] Address: [address] [place] [address] Performed By: #### 5 7021-8 ####ADKINS LABORATORYCLIA [id number] [place] [address] [place] Nucleated RBC/100 WBC (Bld) [Ratio] 0.0 /100 WBC Normal [facility] Comment on above: Order Comment: Speci men Type: BLOOD SPECIMENOrdering Facility: [facility] Address: [address] [place] [address] Performed By: #### 5 7021-8 ####ADKINS LABORATORYCLIA [id number] [place] [address] [place] Platelet mean volume (Bld) [Entitic vol] 9.6 fL Normal 9.0-12.7 [facility] Comment on above: Order Comment: Speci men Type: BLOOD SPECIMENOrdering Facility: [facility] Address: [address] [place] [address] [place] [address] Performed By: #### 5 7021-8 ####ADKINS LABORATORYCLIA [id number] [place] [address] [place] Platelets (Bld) [#/Vol] 230 10*3/uL Normal 150-400 [facility] Comment on above: Order Comment: Speci men Type: BLOOD SPECIMENOrdering Facility: [facility] Address: [address] [place] [address] Performed By: #### 5 7021-8 ####HARROLD LABORATORYCLIA [id number] [place] [address] [place] RBC (Bld) [#/Vol] 3.38 10*6/uL Low 4.20-6.00 [place] Comment on above: Order Comment: Speci men Type: BLOOD SPECIMENOrdering Facility: [facility] Address: [address] [place] [address] Performed By: #### 5 7021-8 ####HARROLD LABORATORYCLIA [id number] [place] [address] [place] WBC (Bld) [#/Vol] 4.54 10*3/uL Normal 3.70-11.00 [place] Comment on above: Order Comment: Speci men Type: BLOOD SPECIMENOrdering Facility: [facility] Address: [address] [place] [address] Performed By: #### 5 7021-8 ####HARROLD LABORATORYCLIA [id number] [place] [address] [place] CONSULT PROGon 07-14-2024 CONSULT PROG Normal [facility] CT ABD/PEL WO IVCONon 2024 CT ABD/PEL WO IVCON Normal [place] Hepatic function 2000 panelo n 07-14-2024 ALP [Catalytic activity/Vol] 65 U/L Normal 38-113 [facility] Comment on above: Order Comment: Speci men Type: BLOOD SPECIMENOrdering Facility: [facility] Address: [address] [place] [address] Performed By: #### 1 751-7, 3040-3, 88978-7, 49723-4, 2777-1, 26813-6 ####ADKINS LABORATORYCLIA [id number] [place] [address] [place] ALT [Catalytic activity/Vol] 9 U/L Low 10-54 [facility] Comment on above: Order Comment: Speci men Type: BLOOD SPECIMENOrdering Facility: [facility] Address: [address] [place] [address] Performed By: #### 1 751-7, 3040-3, 64749-8, 34959-9, 2777-1, ####ADKINS LABORATORYCLIA [id number] [address] [place] AST [Catalytic activity/Vol] 13 U/L Low 14-40 [facility] Comment on above: Order Comment: Speci men Type: BLOOD SPECIMENOrdering Facility: [facility] Address: [address] [place] [address] Performed By: #### 1 751-7, 3040-3, 40022-1, 81122-8, 277-1, ####ADKINS LABORATORYCLIA [id number] [place] [address] [place] Bilirubin [Mass/Vol] 0.2 mg/dL Normal 0.2-1.3 [facility] Comment on above: Order Comment: Speci men Type: BLOOD SPECIMENOrdering Facility: [facility] Address: [address] [place] [address] Performed By: #### 1 751-7, 3040-3, 74829-6, 01581-0, 2777-1, ####ADKINS LABORATORYCLIA [id number] [address] Bilirubin.conjugated [Mass/Vol] mg/dL Normal <0.3 [facility] Comment on above: Order Comment: Speci men Type: BLOOD SPECIMENOrdering Facility: [facility] Address: [address] [place], [place] [address] Performed By: #### 1 751-7, 3040-3, 44902-4, 66730-7, 2777-1, ####HARROLD LABORATORYCLIA [id number] [place] [address] [place] Protein [Mass/Vol] 5.5 g/dL Low 6.3-8.0 [facility] Comment on above: Order Comment: Speci men Type: BLOOD SPECIMENOrdering Facility: [facility] Address: [address] [place] [address] Performed By: #### 1 751-7, 3040-3, 06677-7, 34617-2, 2776-1, ####HARROLD LABORATORYCLIA [id number] [place] [address] [place] Lipase SerPl-cCncon 07-15-19 25 Lipase [Catalytic activity/Vol] 12 U/L Low 16-61 [facility] Comment on above: Order Comment: Speci men Type: BLOOD SPECIMENOrdering Facility: [facility] Address: [address] [place] [address] Performed By: #### 1 751-7, 3040-3, 95344-7, 71784-4, 2776-1, ####HARROLD LABORATORYCLIA [id number] [place] [address] [place] Magnesium SerPl-mCncon 07-14 Magnesium [Mass/Vol] 2.0 mg/dL Normal 1.7-2.3 [facility] Comment on above: Order Comment: Speci men Type: BLOOD SPECIMENOrdering Facility: [facility] Address: [address] [place] [address] Performed By: #### 1 751-7, 3040-3, 27548-5, 37376-4, 2776-1, ####H[facility] LABORATORYCLIA [id number] [place] [address] [place] NURSING PROGon 07-14-2024 NURSING PROG Normal [facility] Phosphate SerPl-mCncon 07-14 Phosphate [Mass/Vol] 7.4 mg/dL High 2.7-4.8 [facility] Comment on above: Order Comment: Speci men Type: BLOOD SPECIMENOrdering Facility: [facility] Address: [address] [place] [address] Performed By: #### 1 751-7, 3040-3, 06295-1, 26263-0, 2777-1, 34210-9 ####HARROLD LABORATORYCLIA [id number] [place] [address] [place] [facility]in [facility] Albumin [Mass/Vol] 3.1 g/dL Low 3.9-4.9 [facility] Comment on above: Order Comment: Speci men Type: BLOOD SPECIMENOrdering Facility: [facility] Address: [address] [place] [address] Performed By: #### 2 777-1, 175-7, 21845-6, 52626-5 ####HARROLD LABORATORYCLIA [id number] [place] [address] [place] Basic metabolic 2000 panelon 07-13-2024 Anion gap [Moles/Vol] 10 mmol/L Normal 8-15 [facility] Comment on above: Order Comment: Speci men Type: BLOOD SPECIMENOrdering Facility: [facility] Address: [address] [place] [address] Performed By: #### 2 777-1, 175-7, 63668-3, 82966-3 ####HARROLD LABORATORYCLIA [id number] [place] [address] [place] Calcium [Mass/Vol] 9.1 mg/dL Normal 8.5-10.2 [facility] Comment on above: Order Comment: Speci men Type: BLOOD SPECIMENOrdering Facility: [facility] Address: [address] [place] [address] Performed By: #### 2 777-1, 175-7, 60734-9, 94675-2 ####HARROLD LABORATORYCLIA [id number] [place] [address] [facility] [place] Chloride [Moles/Vol] 108 mmol/L High 98-107 [facility] Comment on above: Order Comment: Luz vaughan Type: BLOOD SPECIMENOrdering Facility: [facility] Address: [facility] [place] [id number] Performed By: #### 2 777-1, 7, 66370-6, 77903-6 ####HARROLD LABORATORYCLIA [id number] [place] [address] [place] CO2 [Moles/Vol] 24 mmol/L Normal 22-30 [facility] Comment on above: Order Comment: Brooksi men Type: BLOOD SPECIMENOrdering Facility: [facility] Address: [address] [place] [address] Performed By: #### 2 777-1, 1750-10, 86232-6, 72116-7 ####HARROLD LABORATORYCLIA [id number] [address] [place] Creatinine [Mass/Vol] 5.30 mg/dL High 0.73-1.22 [facility] Comment on above: Order Comment: Luz vaughan Type: BLOOD SPECIMENOrdering Facility: [facility] Address: [address] [place] [address] Performed By: #### 2 777-1, 1750-10, 31069-9, 53911-2 ####HARROLD LABORATORYCLIA [id number] [place] [address] [facility] Creatinine and Glomerular filtration rate.predicted panel (S/P/Bld) 11 mL/min/1.73m??? Low >=60 [facility] Comment on above: Order Comment: Luz vaughan Type: BLOOD SPECIMENOrdering Facility: [facility] Address: [address] [place] [address] Result Comment: Breanne mated Glomerular Filtration Rate [...] actual GFR. Performed By: #### 2 777-1, 1757, 87853-9, ####ADKINS LABORATORYCLIA [id number] [place] [address] [place] Glucose [Mass/Vol] 66 mg/dL Low 74-99 [facility] Comment on above: Order Comment: Luz clement Type: BLOOD SPECIMENOrdering Facility: [facility] Address: [address] [place] [address] Result Comment: The [place] [employer] (ADA) provides guidance for cutoff [...] Standards of Medical Care in Diabetes 2016, [place] [employer]. Diabetes Care. 2016.39(Suppl 1). Performed By: #### 2 777-1, 1750-10, , ####ADKINS LABORATORYCLIA [id number] [place] [address] [place] Potassium [Moles/Vol] 4.5 mmol/L Normal 3.7-5.1 [facility] Comment on above: Order Comment: Luz men Type: BLOOD SPECIMENOrdering Facility: [facility] Address: [address] [place] [address] Performed By: #### 2 777-1, 1757, 93475-0, ####ADKINS LABORATORYCLIA [id number] [place] [address] [place] Sodium [Moles/Vol] 142 mmol/L Normal 136-144 [facility] Comment on above: Order Comment: Luz clement Type: BLOOD SPECIMENOrdering Facility: [facility] Address: [address] [place], [place] [address] Performed By: #### 2 777-1, 7, 14748-5, ####ADKINS LABORATORYCLIA [id number] [place] [address] [place] [facility] Urea nitrogen [Mass/Vol] 74 mg/dL High 9-24 [facility] Comment on above: Order Comment: Speci men Type: BLOOD SPECIMENOrdering Facility: [facility] Address: [address] [place] [address] Performed By: #### 2 777-1, 1750-10, 57561-3, ####ADKINS LABORATORYCLIA [id number] [address] [place] [facility] CBC W Auto Differential pane l (Bld)on 07-13-2024 Basophils (Bld) [#/Vol] 10*3/uL Normal <0.11 [facility] Comment on above: Order Comment: Speci men Type: BLOOD SPECIMENOrdering Facility: [facility] Address: [address] [place] [address] Performed By: #### 5 7021-8 ####ADKINS LABORATORYCLIA [id number] [address] [place] [facility] Basophils/100 WBC (Bld) 0.2 % Normal [facility] Comment on above: Order Comment: Speci men Type: BLOOD SPECIMENOrdering Facility: [facility] Address: [address] [place] [address] Performed By: #### 5 7021-8 ####ADKINS LABORATORYCLIA [id number] [address] Differential cell count method Nom (Bld) Auto Normal [facility] Comment on above: Order Comment: Speci men Type: BLOOD SPECIMENOrdering Facility: [facility] Address: [address] [place] [address] Performed By: #### 5 7021-8 ####ADKINS LABORATORYCLIA [id number] [place] [address] [place] Eosinophils (Bld) [#/Vol] 0.23 10*3/uL Normal <0.46 [facility] Comment on above: Order Comment: Speci men Type: BLOOD SPECIMENOrdering Facility: [facility] Address: [address] [place] [address] Performed By: #### 5 7021-8 ####ADKINS LABORATORYCLIA [id number] [place] [address] [place] Eosinophils/100 WBC (Bld) 4.9 % Normal [facility] Comment on above: Order Comment: Speci men Type: BLOOD SPECIMENOrdering Facility: [facility] Address: [address] [place] [address] Performed By: #### 5 7021-8 ####ADKINS LABORATORYCLIA [id number] [address] [place] Erythrocyte distribution width (RBC) [Ratio] 13.3 % Normal 11.5-15.0 [facility] Comment on above: Order Comment: Speci men Type: BLOOD SPECIMENOrdering Facility: [facility] Address: [address] [place] [address] Performed By: #### 5 7021-8 ####ADKINS LABORATORYCLIA [id number] [address] [place] Hematocrit (Bld) [Volume fraction] 30.5 % Low 39.0-51.0 [facility] Comment on above: Order Comment: Speci men Type: BLOOD SPECIMENOrdering Facility: [facility] Address: [address] [place] [address] Performed By: #### 5 7021-8 ####ADKINS LABORATORYCLIA [id number] [place] [address] [place] Hemoglobin (Bld) [Mass/Vol] 9.9 g/dL Low 13.0-17.0 [facility] Comment on above: Order Comment: Speci men Type: BLOOD SPECIMENOrdering Facility: [facility] Address: [address] [place] [address] Performed By: #### 5 7021-8 ####ADKINS LABORATORYCLIA [id number] [address] [place] Immature granulocytes (Bld) [#/Vol] 0.03 10*3/uL Normal <0.10 [facility] Comment on above: Order Comment: Speci men Type: BLOOD SPECIMENOrdering Facility: [facility] Address: [address] [place] [address] Performed By: #### 5 7021-8 ####ADKINS LABORATORYCLIA [id number] [address] [place] Immature granulocytes/100 WBC (Bld) 0.6 % Normal [facility] Comment on above: Order Comment: Speci men Type: BLOOD SPECIMENOrdering Facility: [facility] Address: [address] [place] [address] Performed By: #### 5 7021-8 ####ADKINS LABORATORYCLIA [id number] [place] [address] [place] Lymphocytes (Bld) [#/Vol] 1.33 10*3/uL Normal 1.00-4.00 [facility] Comment on above: Order Comment: Speci men Type: BLOOD SPECIMENOrdering Facility: [facility] Address: [address] [place] [address] Performed By: #### 5 7021-8 ####ADKINS LABORATORYCLIA [id number] [address] Lymphocytes/100 WBC (Bld) 28.5 % Normal [facility] Comment on above: Order Comment: Speci men Type: BLOOD SPECIMENOrdering Facility: [facility] Address: [address] [place] [address] Performed By: #### 5 7021-8 ####ADKINS LABORATORYCLIA [id number] [place] [address] [place] MCH (RBC) [Entitic mass] 28.4 pg Normal 26.0-34.0 [facility] Comment on above: Order Comment: Speci men Type: BLOOD SPECIMENOrdering Facility: [facility] Address: [address] [place] [address] Performed By: #### 5 7021-8 ####ADKINS LABORATORYCLIA [id number] [address] [place] MCHC (RBC) [Mass/Vol] 32.5 g/dL Normal 30.5-36.0 [facility] Comment on above: Order Comment: Speci men Type: BLOOD SPECIMENOrdering Facility: [facility] Address: [address] [place] [address] Performed By: #### 5 7021-8 ####ADKINS LABORATORYCLIA [id number] [place] [address] [place] MCV (RBC) [Entitic vol] 87.6 fL Normal 80.0-100.0 [facility] Comment on above: Order Comment: Speci men Type: BLOOD SPECIMENOrdering Facility: [facility] Address: [address] [place] [address] Performed By: #### 5 7021-8 ####ADKINS LABORATORYCLIA [id number] [place] [address] [place] Monocytes (Bld) [#/Vol] 0.54 10*3/uL Normal <0.87 [facility] Comment on above: Order Comment: Speci men Type: BLOOD SPECIMENOrdering Facility: [facility] Address: [address] [place] [address] Performed By: #### 5 7021-8 ####ADKINS LABORATORYCLIA [id number] [place] [address] [place] Monocytes/100 WBC (Bld) 11.6 % Normal [facility] Comment on above: Order Comment: Speci men Type: BLOOD SPECIMENOrdering Facility: [facility] Address: [address] [place] [address] Performed By: #### 5 7021-8 ####ADKINS LABORATORYCLIA [id number] [place] [address] [place] Neutrophils (Bld) [#/Vol] 2.53 10*3/uL Normal 1.45-7.50 [facility] Comment on above: Order Comment: Speci men Type: BLOOD SPECIMENOrdering Facility: [facility] Address: [address] [place] [address] Performed By: #### 5 7021-8 ####ADKINS LABORATORYCLIA [id number] [place] [address] [place] Neutrophils/100 WBC (Bld) 54.2 % Normal [facility] Comment on above: Order Comment: Speci men Type: BLOOD SPECIMENOrdering Facility: [facility] Address: [address] [place] [address] Performed By: #### 5 7021-8 ####ADKINS LABORATORYCLIA [id number] [place] [address] [place] Nucleated RBC (Bld) [#/Vol] 10*3/uL Normal <0.01 [facility] Comment on above: Order Comment: Speci men Type: BLOOD SPECIMENOrdering Facility: [facility] Address: [address] [place] [address] Performed By: #### 5 7021-8 ####ADKINS LABORATORYCLIA [id number] [place] [address] [place] Nucleated RBC/100 WBC (Bld) [Ratio] 0.0 /100 WBC Normal [facility] Comment on above: Order Comment: Speci men Type: BLOOD SPECIMENOrdering Facility: [facility] Address: [address] [place] [address] Performed By: #### 5 7021-8 ####ADKINS LABORATORYCLIA [id number] [place] [address] [place] Platelet mean volume (Bld) [Entitic vol] 9.3 fL Normal 9.0-12.7 [facility] Comment on above: Order Comment: Speci men Type: BLOOD SPECIMENOrdering Facility: [facility] Address: [address] [place] [address] Performed By: #### 5 7021-8 ####ADKINS LABORATORYCLIA [id number] [place] [address] [place] Platelets (Bld) [#/Vol] 225 10*3/uL Normal 150-400 [facility] Comment on above: Order Comment: Speci men Type: BLOOD SPECIMENOrdering Facility: [facility] Address: [address] [place] [address] Performed By: #### 5 7021-8 ####ADKINS LABORATORYCLIA [id number] [place] [address] [place] RBC (Bld) [#/Vol] 3.48 10*6/uL Low 4.20-6.00 [place] Comment on above: Order Comment: Speci men Type: BLOOD SPECIMENOrdering Facility: [facility] Address: [facility] [place] [address] Performed By: #### 5 7021-8 ####ADKINS LABORATORYCLIA [id number] [place] [address] [place] WBC (Bld) [#/Vol] 4.67 10*3/uL Normal 3.70-11.00 [place] Comment on above: Order Comment: Speci men Type: BLOOD SPECIMENOrdering Facility: [facility] Address: [address] [place] [address] Performed By: #### 5 7021-8 ####ADKINS LABORATORYCLIA [id number] [place] [id number] [facility] CONSULT PROGon 07-13-2024 CONSULT PROG Normal [facility] Magnesium SerPl-mCncon 07-13 Magnesium [Mass/Vol] 1.8 mg/dL Normal 1.7-2.3 [facility] Comment on above: Order Comment: Speci men Type: BLOOD SPECIMENOrdering Facility: [facility] Address: [address] [place], [place] [address] [address] Performed By: #### 2 777-1, 175-7, 56257-9, ####HARROLD LABORATORYCLIA [id number] [place] [id number] [facility] [place] Phosphate SerPl-mCncon 07-13 Phosphate [Mass/Vol] 6.5 mg/dL High 2.7-4.8 [facility] Comment on above: Order Comment: Speci men Type: BLOOD SPECIMENOrdering Facility: [facility] Address: [address] [place], [place] [address] [address] Performed By: #### 2 777-1, 175-7, 31062-7, ####HARROLD LABORATORYCLIA [id number] [place] [address] [place] Basic metabolic 2000 panelon 07-12-2024 Anion gap [Moles/Vol] 13 mmol/L Normal 8-15 [facility] Comment on above: Order Comment: Speci men Type: BLOOD SPECIMENOrdering Facility: [facility] Address: [address] [place] [address] Performed By: #### 2 4321-2 ####ADKINS LABORATORYCLIA [id number] [place] [address] [place] Calcium [Mass/Vol] 8.9 mg/dL Normal 8.5-10.2 [facility] Comment on above: Order Comment: Speci men Type: BLOOD SPECIMENOrdering Facility: [facility] Address: [address] [place] [address] Performed By: #### 2 4321-2 ####ADKINS LABORATORYCLIA [id number] [place] [address] [place] Chloride [Moles/Vol] 108 mmol/L High 98-107 [facility] Comment on above: Order Comment: Speci men Type: BLOOD SPECIMENOrdering Facility: [facility] Address: [address] [place] [address] Performed By: #### 2 4321-2 ####ADKINS LABORATORYCLIA [id number] [place] [address] [place] CO2 [Moles/Vol] 22 mmol/L Normal 22-30 [facility] Comment on above: Order Comment: Speci men Type: BLOOD SPECIMENOrdering Facility: [facility] Address: [address] [place] [address] Performed By: #### 2 4321-2 ####ADKINS LABORATORYCLIA [id number] [place] [address] [place] Creatinine [Mass/Vol] 5.23 mg/dL High 0.73-1.22 [facility] Comment on above: Order Comment: Speci men Type: BLOOD SPECIMENOrdering Facility: [facility] Address: [address] [place] [address] Performed By: #### 2 4321-2 ####ADKINS LABORATORYCLIA [id number] [place] [address] [place] Creatinine and Glomerular filtration rate.predicted panel (S/P/Bld) 12 mL/min/1.73m??? Low >=60 [facility] Comment on above: Order Comment: Luz vaughan Type: BLOOD SPECIMENOrdering Facility: [facility] Address: [address] [place] [address] Result Comment: Breanne mated Glomerular Filtration Rate [...] actual GFR. Performed By: #### 2 4321-2 ####[facility] LABORATORYCLIA [id number] [place] [id number] [place] Glucose [Mass/Vol] 61 mg/dL Low 74-99 [facility] Comment on above: Order Comment: Luz vaughan Type: BLOOD SPECIMENOrdering Facility: [facility] Address: [address] [place] [address] Result Comment: The [place] [employer] (ADA) provides guidance for cutoff [...] Standards of Medical Care in Diabetes 2016, [place] [employer]. Diabetes Care. 2016.39(Suppl 1). Performed By: #### 2 4321-2 ####[facility] LABORATORYCLIA [id number] [place] [address] [place] Potassium [Moles/Vol] 5.0 mmol/L Normal 3.7-5.1 [facility] Comment on above: Order Comment: Luz vaughan Type: BLOOD SPECIMENOrdering Facility: [facility] Address: [address] [place] [id number] Performed By: #### 2 4321-2 ####[facility] LABORATORYCLIA [id number] [place] [address] [place] Sodium [Moles/Vol] 143 mmol/L Normal 136-144 [facility] Comment on above: Order Comment: Speci men Type: BLOOD SPECIMENOrdering Facility: [facility] Address: [address] [place] [address] Performed By: #### 2 4321-2 ####[facility] LABORATORYCLIA [id number] [place] [address] [place] Urea nitrogen [Mass/Vol] 77 mg/dL High 9-24 [facility] Comment on above: Order Comment: Speci men Type: BLOOD SPECIMENOrdering Facility: [facility] Address: [address] [place] [address] Performed By: #### 2 4321-2 ####[facility] LABORATORYCLIA [id number] [address] [facility] CASE MANAGEMon 07-12-2024 CASE MANAGEM Normal [facility] CBC panel Auto (Bld)on 07-12 Erythrocyte distribution width (RBC) [Ratio] 13.2 % Normal 11.5-15.0 [facility] Comment on above: Order Comment: Speci men Type: BLOOD SPECIMENOrdering Facility: [facility] Address: [address] [place] [address] Performed By: #### 5 8410-2 ####[facility] LABORATORYCLIA [id number] [address] [place] Hematocrit (Bld) [Volume fraction] 31.8 % Low 39.0-51.0 [facility] Comment on above: Order Comment: Speci men Type: BLOOD SPECIMENOrdering Facility: [facility] Address: [address] [place] [address] Performed By: #### 5 8410-2 ####[facility] LABORATORYCLIA [id number] [address] [place] Hemoglobin (Bld) [Mass/Vol] 10.4 g/dL Low 13.0-17.0 [facility] Comment on above: Order Comment: Speci men Type: BLOOD SPECIMENOrdering Facility: [facility] Address: [address] [place] [address] Performed By: #### 5 8410-2 ####[facility] LABORATORYCLIA [id number] [address] MCH (RBC) [Entitic mass] 28.7 pg Normal 26.0-34.0 [facility] Comment on above: Order Comment: Speci men Type: BLOOD SPECIMENOrdering Facility: [facility] Address: [address] [place] [address] Performed By: #### 5 8410-2 ####[facility] LABORATORYCLIA [id number] [address] MCHC (RBC) [Mass/Vol] 32.7 g/dL Normal 30.5-36.0 [facility] Comment on above: Order Comment: Speci men Type: BLOOD SPECIMENOrdering Facility: [facility] Address: [address] [place] [address] Performed By: #### 5 8410-2 ####[facility] LABORATORYCLIA [id number] [address] MCV (RBC) [Entitic vol] 87.8 fL Normal 80.0-100.0 [facility] Comment on above: Order Comment: Speci men Type: BLOOD SPECIMENOrdering Facility: [facility] Address: [address] [place] [address] Performed By: #### 5 8410-2 ####[facility] LABORATORYCLIA [id number] [address] Nucleated RBC (Bld) [#/Vol] 10*3/uL Normal <0.01 [facility] Comment on above: Order Comment: Speci men Type: BLOOD SPECIMENOrdering Facility: [facility] Address: [address] [place] [address] Performed By: #### 5 8410-2 ####[facility] LABORATORYCLIA [id number] [address] Platelet mean volume (Bld) [Entitic vol] 9.2 fL Normal 9.0-12.7 [facility] Comment on above: Order Comment: Speci men Type: BLOOD SPECIMENOrdering Facility: [facility] Address: [address] [place] [address] Performed By: #### 5 8410-2 ####[facility] LABORATORYCLIA [id number] [address] Platelets (Bld) [#/Vol] 227 10*3/uL Normal 150-400 [facility] Comment on above: Order Comment: Speci men Type: BLOOD SPECIMENOrdering Facility: [facility] Address: [address] [place] [address] Performed By: #### 5 8410-2 ####[facility] LABORATORYCLIA [id number] [place] [address] [place] RBC (Bld) [#/Vol] 3.62 10*6/uL Low 4.20-6.00 [place] Comment on above: Order Comment: Speci men Type: BLOOD SPECIMENOrdering Facility: [facility] Address: [address] [place] [address] Performed By: #### 5 8410-2 ####[facility] LABORATORYCLIA [id number] [address] [place] WBC (Bld) [#/Vol] 5.32 10*3/uL Normal 3.70-11.00 [place] Comment on above: Order Comment: Speci men Type: BLOOD SPECIMENOrdering Facility: [facility] Address: [address] [place] [address] Performed By: #### 5 8410-2 ####[facility] LABORATORYCLIA [id number] [address] [place] CNPNon 07-12-2024 CNPN Telephone (HCSIND) -- JOSÉ MANUEL ASHTON ([id number]) 1960 [facility] Date Time Provider Department 07/12/24 JUDITH CAT HCSIND During your visit today, we recorded the following information about you: Judith Cat LPN 07/12/2024 10:24 AM Signed Bunny Scott MD Please advise if you are agreeable to signing and following for [facility] services? Our Clinicians will be sending the Plan of Care to you for review and approval. They will reach out for any appropriate orders required to provide home care services for the patient. We are not able to initiate HHC services without a following provider. Home care clinicians may also obtain orders from [facility] Providers Thank you and we would be happy to answer any questions. Judith Cat LPN 07/12/2024 10:23 AM Allergies As of Date: 07/12/2024 Noted Allergy Reaction PENICILLINS 07/24/2020 16 - Unknown Comments: Pt states he thinks he had a reaction as a child Date Reviewed: 07/12/2024 Reviewed by: Christina Vincent RN - Fully Assessed Reason for Visit: Home Care [4073] Cmt: MD to Follow Prescriptions as of 07/12/2024 - [...] AUTOSHIELD DUO PEN NEEDLE) 30 gauge x 3/16 ndle 1 Applicator four times daily. Facility-Administered [...] Nusrat Lewis, OA 11/08/[address] Scott: Patient to continue to use the SSI only, no regular scheduled Insulin dosing at this time. Patient's sister has been notified and verbalizes understanding. Richard Hinds RN Problem List As Of Date 07/12/2024 Noted Resolved Vitamin D deficiency [E55.9] 02/20/2020 Marijuana use [F12.90] 02/20/2020 Microalbuminuria [R80.9] 02/20/2020 Obesity, Class II, BMI 35-39.9 [E66.812] 02/20/2020 05/25/2023 Chronic bilateral low back pain [M54.50, G89.29]02/20/2020 Weakness [R53.1] 05/05/2020 06/15/2020 Decreased mobility and endurance [Z74.09] 05/05/2020 06/15/2020 Severe episode of r (more content not included)... Normal [facility] CONSULT PROGon 07-12-2024 CONSULT PROG [facility] CT BIOPSY RENALon 07-12-2024 CT BIOPSY RENAL Normal [facility] PT EDon 07-12-2024 PT ED [facility] Pathology biopsy report Kade (Tiss)on 07-12-2024 ADDENDUM 1: [facility] Comment on above: Order Comment: Speci men Type: TISSUE SPECIMENOrdering Facility: [facility] Address: [address] [place] [address] Result Comment: A Co cano red stain for amyloid is negative. The diagnosis is unchanged.Addendum electronically signed by Leida Jones MD on 07/17/2024 at 1643 EDT Performed By: #### 6 6121-5 ####[facility] LABIA [id number] [address] [place] AP DISCLAIMER [facility] Comment on above: Order Comment: Speci men Type: TISSUE SPECIMENOrdering Facility: [facility] Address: [address] [place] [address] Result Comment: Naya oliva Developed Test (LDT) Disclaimer:Performance characteristics of immunohistochemical, immunofluorescent, and chromogenic in-situ hybridization tests have been determined by the performing laboratory within [facility] ([facility], [facility], [facility], [facility], [facility], [facility], or [facility]) in a manner consistent with CLIA requirements. One or more of these tests may not have been cleared or approved by the FDA. [facility] is regulated under CLIA as qualified to perform high-complexity testing. These tests are used for clinical purposes. These should not be regarded as investigational or for research. Positive and negative controls stain appropriately. Performed By: #### 6 6121-5 ####[facility] LABIA [id number] [place] [address] [place] CASE REPORT Normal [facility] Comment on above: Order Comment: Speci men Type: TISSUE SPECIMENOrdering Facility: [facility] Address: [address] [place] [address] Result Comment: Surg [facility] Pathology Report Case: [id number] Provider: Luis Carlos Garcia MD Collected: 07/12/2024 02:38 PMOrdering Location: [facility] Three Received: 07/12/2024 02:55 PM SouthPathologist: Leida Jones MDSpecimen: Kidney, Right, Biopsy Performed By: #### 6 6121-5 ####[facility] LABIA [id number] [place] [address] [place] CLINICAL HISTORY 63-year-old man with history of diabetes, presenting with TARYN on CKD. Creatinine 5.71, albumin 3.2, UA protein 3+/blood 1+, UPCR 7.24, JAMARCUS negative, C3/C4 within normal limits, ANCA negative, kappa lambda ratio within normal limits. [facility] Comment on above: Order Comment: Speci men Type: TISSUE SPECIMENOrdering Facility: [facility] Address: [address] [place] [address] Performed By: #### 6 6121-5 ####[facility] LABCLIA [id number] [address] DIAGNOSIS COMMENT [facility] Comment on above: Order Comment: Speci clement Type: TISSUE SPECIMENOrdering Facility: [facility] Address: [address] [place] [address] Performed By: #### 6 6121-5 ####[facility] LABCLIA [id number] [address] FINAL DIAGNOSIS [facility] Comment on above: Order Comment: Speci clement Type: TISSUE SPECIMENOrdering Facility: [facility] Address: [address] [place] [address] Result Comment: Right Joaquín, Biopsy:- 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 See comment.- Tubular atrophy and interstitial fibrosis, severe.- Arteriosclerosis, moderate, and arteriolosclerosis, severe. at 1508 EDT Performed By: #### 6 6121-5 ####[facility] LABCLIA [id number] [address] FINAL PERFORMING LAB [facility] Comment on above: Order Comment: [facility] Type: TISSUE SPECIMENOrdering Facility: [facility] Address: [address] [place] [address] Result Comment: Diag nostic interpretation performed at: [facility], [address] [place] [address], [facility] [place] [address] CLIA# [id number] Director: Teja Pedraza MD Performed By: #### 6 6121-5 ####[facility] [id number] [address] GROSS DESCRIPTION [facility] Comment on above: Order Comment: Speci clement Type: TISSUE SPECIMENOrdering Facility: [facility] Address: [address] [place] [address] Result Comment: Tomás Emanuel ross, Right, BiopsyReceived fresh on saline moistened Telfa gauze are two segments of cylindrical flores, soft tissue aggregating to 2.3 x 0.2 x 0.1 cm. A portion is frozen and kept frozen for direct immunofluorescence. A portion is submitted for electron microscopy. A portion is submitted in formalin for light microscopy in cassette A2.Gross examination performed at [facility], [address] [place], [place] [address]AMS July 12, 2024 7:09 PM Performed By: #### 6 6121-5 ####[facility] [id number] [address] MICROSCOPIC DESCRIPTION [facility] Comment on above: Order Comment: Brooksi clement Type: TISSUE SPECIMENOrdering Facility: [facility] Address: [address] [place] [address] Result Comment: Sect ions are stained for [...] C1q, and are negative for other immunoreactants. [place] and lambda stain equally throughout the tubulointerstitium [...] the tubulointerstitium. Performed By: #### 6 6121-5 ####[facility] LABIA [id number] [address] [place] ALBUMIN/CREATININE RATIO, UR INEon 07-11-2024 Albumin DL <= 20 mg/L (U) [Mass/Vol] 1966.9 mg/L Normal [facility] Comment on above: Order Comment: Speci men Type: URINE SPECIMENOrdering Facility: [facility] Address: [address] [place] [address] Performed By: #### 3 5677-4, 2890-2, UACR, 97206-6, 55294-2 ####[facility] [id number] [place] [address] [place] Albumin/Creatinine (U) [Mass ratio] 4276 mg/g High <30 [facility] Comment on above: Order Comment: Speci men Type: URINE SPECIMENOrdering Facility: [facility] Address: [address] [place] [address] Result Comment: Adul t Male and Female Nephrotic Criteria:<30 mg/g is considered normal to mildly dzfxangai26-605 mg/g is considered moderately increased>300 mg/g is considered severely increasedKDIGO. (2013). KDIGO 2012 Clinical Practice Guideline for the Evaluation and Management of Chronic Kidney Disease. Official Journal of the International Society of Nephrology, 3(1), 1-150. Performed By: #### 3 5677-4, 2890-2, UACR, 28767-8, 56702-1 ####[facility] LABIA [id number] [place] [address] [place] JAMARCUS BY IFA SCREENon 07-12-19 Nuclear Ab Ql (S) Negative Normal Negative [facility] Comment on above: Order Comment: Speci men Type: BLOOD SPECIMENOrdering Facility: [facility] Address: [address] [place] [address] Result Comment: Anti -nuclear antibody test is used as an aid in diagnosis of systemic autoimmune diseases. Where positive and clinically warranted, follow-up using disease-specific testing is recommended. Low positive titers are not uncommon with advanced age, certain chronic infections, and malignancies among others.Test methodology: Indirect fluorescence immunoassay (IFA) using HEp-2 cells. Performed By: #### A NAIFS, ANCA ####[facility] LABCLIA [id number] [place] [address] [place] ANTI NEUTRO CYTO ABon 2024 INTERPRETATION (ANCA) Equivocal staining seen on the ethanol (indirect immunofluorescence screen) slide but negative results on follow up confirmatory testing. Anti-nuclear antibody test may be considered. Clinical correlation is required. Normal [facility] Comment on above: Order Comment: Speci clement Type: BLOOD SPECIMENOrdering Facility: [facility] Address: [address] [place] [address] Performed By: #### A NAIFS, ANCA ####[facility] LABCLIA [id number] [place] [address] [place] Myeloperoxidase Ab Qn (S) <0.2 Normal <1.0 [facility] Comment on above: Order Comment: Speci men Type: BLOOD SPECIMENOrdering Facility: [facility] Address: [address] [place] [address] Performed By: #### A NAIFS, ANCA ####[facility] LABCLIA [id number] [place] [address] [place] Neutrophil cytoplasmic Ab.classic IF Ql (S) Negative Normal Negative [facility] Comment on above: Order Comment: Speci men Type: BLOOD SPECIMENOrdering Facility: [facility] Address: [address] [place] [address] Performed By: #### A NAIFS, ANCA ####[facility] LABCLIA [id number] [place] [address] [place] Neutrophil cytoplasmic Ab.perinuclear IF Ql (S) Negative Normal Negative [facility] Comment on above: Order Comment: Speci men Type: BLOOD SPECIMENOrdering Facility: [facility] Address: [address] [place] [address] Performed By: #### A NAIFS, ANCA ####[facility] LABCLIA [id number] [place] [address] [place] Proteinase 3 Ab Qn (S) <0.2 Normal <1.0 [facility] Comment on above: Order Comment: Speci men Type: BLOOD SPECIMENOrdering Facility: [facility] Address: [address] [place] [address] Performed By: #### A NAIFS, ANCA ####[facility] LABCLIA [id number] [address] [place] STAFF REVIEW (ANCA) Reviewed by Moe Bailey, Ph.D D([facility]) Normal [facility] Comment on above: Order Comment: Speci men Type: BLOOD SPECIMENOrdering Facility: [facility] Address: [address] [place] [address] Performed By: #### A NAIFS, ANCA ####[facility] LABCLIA [id number] [place] [address] [place] Basic metabolic 2000 panelon 07-11-2024 Anion gap [Moles/Vol] 14 mmol/L Normal 8-15 [facility] Comment on above: Order Comment: Speci men Type: BLOOD SPECIMENOrdering Facility: [facility] Address: [address] [place] [address] Performed By: #### 2 4321-2 ####[facility] LABORATORYCLIA [id number] [place] [address] [place] Calcium [Mass/Vol] 8.9 mg/dL Normal 8.5-10.2 [facility] Comment on above: Order Comment: Speci men Type: BLOOD SPECIMENOrdering Facility: [facility] Address: [address] [place] [address] Performed By: #### 2 4321-2 ####[facility] LABORATORYCLIA [id number] [address] [place] Chloride [Moles/Vol] 109 mmol/L High 98-107 [facility] Comment on above: Order Comment: Speci men Type: BLOOD SPECIMENOrdering Facility: [facility] Address: [address] [place] [address] Performed By: #### 2 4321-2 ####[facility] LABORATORYCLIA [id number] [place] [address] [place] CO2 [Moles/Vol] 22 mmol/L Normal 22-30 [facility] Comment on above: Order Comment: Speci men Type: BLOOD SPECIMENOrdering Facility: [facility] Address: [address] [place] [address] Performed By: #### 2 4321-2 ####[facility] LABORATORYCLIA [id number] [place] [address] [place] Creatinine [Mass/Vol] 6.10 mg/dL High 0.73-1.22 [facility] Comment on above: Order Comment: Speci men Type: BLOOD SPECIMENOrdering Facility: [facility] Address: [address] [place] [address] Performed By: #### 2 4321-2 ####[facility] LABORATORYCLIA [id number] [address] Creatinine and Glomerular filtration rate.predicted panel (S/P/Bld) 10 mL/min/1.73m??? Low >=60 [facility] Comment on above: Order Comment: Speci men Type: BLOOD SPECIMENOrdering Facility: [facility] Address: [address] [place] [address] Result Comment: Breanne mated Glomerular Filtration Rate [...] Performed By: #### 2 4321-2 ####[facility] LABORATORYCLIA [id number] [place] [address] [place] Glucose [Mass/Vol] 128 mg/dL High 74-99 [facility] Comment on above: Order Comment: Luz vaughan Type: BLOOD SPECIMENOrdering Facility: [facility] Address: [address] [place] [address] Result Comment: The [place] Diabetes Association (ADA) provides guidance for cutoff [...] Standards of Medical Care in Diabetes 2016, [place] [employer]. Diabetes Care. 2016.39(Suppl 1). Performed By: #### 2 4321-2 ####[facility] LABORATORYCLIA [id number] [place] [address] [place] Potassium [Moles/Vol] 5.2 mmol/L High 3.7-5.1 [facility] Comment on above: Order Comment: Luz vaughan Type: BLOOD SPECIMENOrdering Facility: [facility] Address: [address] [place] [address] Performed By: #### 2 4321-2 ####[facility] LABORATORYCLIA [id number] [place] [id number] [place] Sodium [Moles/Vol] 145 mmol/L High 136-144 [facility] Comment on above: Order Comment: Luz vaughan Type: BLOOD SPECIMENOrdering Facility: [facility] Address: [address] [place] [address] Performed By: #### 2 4321-2 ####[facility] LABORATORYCLIA [id number] [place] [address] [place] Urea nitrogen [Mass/Vol] 85 mg/dL High 9-24 [facility] Comment on above: Order Comment: Speci men Type: BLOOD SPECIMENOrdering Facility: [facility] Address: [address] [place] [address] Performed By: #### 2 4321-2 ####[facility] LABORATORYCLIA [id number] [place] [id number] [place] C3 SerPl-mCncon 07-11-2024 Complement C3 [Mass/Vol] 139 mg/dL Normal 86-166 [facility] Comment on above: Order Comment: Speci men Type: BLOOD SPECIMENOrdering Facility: [facility] Address: [address] [place] [address] Performed By: #### 4 498-2, 4485-9, 2885-2 ####[facility] LABCLIA [id number] [place] [address] [place] C4 SerPl-mCncon 07-11-2024 Complement C4 [Mass/Vol] 21 mg/dL Normal 13-46 [facility] Comment on above: Order Comment: Speci men Type: BLOOD SPECIMENOrdering Facility: [facility] Address: [address] [place] [address] Performed By: #### 4 498-2, 4485-9, 2885-2 ####[facility] LABCLIA [id number] [place] [id number] [place] CASE MGT INIT ASSESon 2024 CASE MGT INIT ASS Normal [place] CBC panel Auto (Bld)on 07-11 Erythrocyte distribution width (RBC) [Ratio] 13.2 % Normal 11.5-15.0 [facility] Comment on above: Order Comment: Speci men Type: BLOOD SPECIMENOrdering Facility: [facility] Address: [address] [place] [address] Performed By: #### 5 8410-2 ####[facility] LABORATORYCLIA [id number] [address] Hematocrit (Bld) [Volume fraction] 32.8 % Low 39.0-51.0 [facility] Comment on above: Order Comment: Speci men Type: BLOOD SPECIMENOrdering Facility: [facility] Address: [address] [place] [address] Performed By: #### 5 8410-2 ####[facility] LABORATORYCLIA [id number] [address] Hemoglobin (Bld) [Mass/Vol] 10.8 g/dL Low 13.0-17.0 [facility] Comment on above: Order Comment: Speci men Type: BLOOD SPECIMENOrdering Facility: [facility] Address: [address] [place] [address] Performed By: #### 5 8410-2 ####[facility] LABORATORYCLIA [id number] [address] MCH (RBC) [Entitic mass] 28.9 pg Normal 26.0-34.0 [facility] Comment on above: Order Comment: Speci men Type: BLOOD SPECIMENOrdering Facility: [facility] Address: [address] [place] [address] Performed By: #### 5 8410-2 ####[facility] LABORATORYCLIA [id number] [address] MCHC (RBC) [Mass/Vol] 32.9 g/dL Normal 30.5-36.0 [facility] Comment on above: Order Comment: Speci men Type: BLOOD SPECIMENOrdering Facility: [facility] Address: [address] [place] [address] Performed By: #### 5 8410-2 ####[facility] LABORATORYCLIA [id number] [address] MCV (RBC) [Entitic vol] 87.7 fL Normal 80.0-100.0 [facility] Comment on above: Order Comment: Speci men Type: BLOOD SPECIMENOrdering Facility: [facility] Address: [address] [place] [address] Performed By: #### 5 8410-2 ####[facility] LABORATORYCLIA [id number] [place] [id number] [place] Nucleated RBC (Bld) [#/Vol] 10*3/uL Normal <0.01 [facility] Comment on above: Order Comment: Speci men Type: BLOOD SPECIMENOrdering Facility: [facility] Address: [address] [place] [address] Performed By: #### 5 8410-2 ####[facility] LABORATORYCLIA [id number] [place] [address] [place] Platelet mean volume (Bld) [Entitic vol] 9.2 fL Normal 9.0-12.7 [facility] Comment on above: Order Comment: Speci men Type: BLOOD SPECIMENOrdering Facility: [facility] Address: [address] [place] [address] Performed By: #### 5 8410-2 ####[facility] LABORATORYCLIA [id number] [place] [address] [place] Platelets (Bld) [#/Vol] 248 10*3/uL Normal 150-400 [facility] Comment on above: Order Comment: Speci men Type: BLOOD SPECIMENOrdering Facility: [facility] Address: [address] [place] [address] Performed By: #### 5 8410-2 ####[facility] LABORATORYCLIA [id number] [place] [address] [place] RBC (Bld) [#/Vol] 3.74 10*6/uL Low 4.20-6.00 [place] Comment on above: Order Comment: Speci men Type: BLOOD SPECIMENOrdering Facility: [facility] Address: [address] [place] [address] Performed By: #### 5 8410-2 ####[facility] LABORATORYCLIA [id number] 56 [address] [place] WBC (Bld) [#/Vol] 5.12 10*3/uL Normal 3.70-11.00 [place] Comment on above: Order Comment: Speci men Type: BLOOD SPECIMENOrdering Facility: [facility] Address: [address] [place] [address] Performed By: #### 5 8410-2 ####[facility] LABORATORYCLIA [id number] [place] [address] [place] CONSULTon 07-11-2024 CONSULT Normal [facility] Creat ?Tm Ur-mCncon 07-12-19 25 Creatinine (U) [Mass/Vol] 46.0 mg/dL Normal 20.0-300.0 [facility] Comment on above: Order Comment: Speci men Type: URINE SPECIMENOrdering Facility: [facility] Address: [address] [place] [address] Performed By: #### 3 5677-4, 2890-2, [facility], 76126-3, 11970-6 ####[facility] LABCLIA [id number] [place] [address] [place] DNA ANTIBODY DS BLDon 2024 DNA ANTIBODY 9 IU/mL Normal <=200 [facility] Comment on above: Order Comment: Speci men Type: BLOOD SPECIMENOrdering Facility: [facility] Address: [address] [place] [address] Result Comment: Nega tive: <200 IU/mLEquivocal: 201-300 IU/mLModerate Positive: 301-800 IU/mLStrong Positive: >801 IU/mL Performed By: #### D NAAB ####[facility] LABCLIA [id number] [place] [address] [place] DNA ANTIBODY QUALITATIVE INTERPRETATION Negative Normal Negative [facility] Comment on above: Order Comment: Speci men Type: BLOOD SPECIMENOrdering Facility: [facility] Address: [address] [place] [address] Performed By: #### D NAAB ####[facility] LABCLIA [id number] [place] [address] [place] GBM IGG AUTOANTIBODYon 07-11 GBM IGG AB, (BEAD) 0 AU/mL Normal 0-19 [facility] Comment on above: Order Comment: Speci men Type: BLOOD SPECIMENOrdering Facility: [facility] Address: [address] [place] [address] Result Comment: INTE RPRETIVE INFORMATION: GBM Ab, [...] confirmation and assessment of renal prognosis.Performed By: [email or web address] [place] [id number] Director: Derian Moreno MD, PhDCLIA Number: [id number] Performed By: #### G BM ####[facility] COLUMBUSIA [id number] [place] [address] HISTORY PHYSICALon HISTORY PHYSICAL Normal [facility] KAPPA/MEDELLIN,FREE,SERon 2024 Immunoglobulin light chains.kappa.free (S) [Mass/Vol] 81.2 mg/L High 3.3-19.4 [facility] Comment on above: Order Comment: Speci men Type: BLOOD SPECIMENOrdering Facility: [facility] Address: [address] [place] [address] Result Comment: Rare ly, increased serum free light chains levels may not be detected or accurately quantified due to prozone phenomenon or in high viscosity samples using this immunoturbidimetric assay. Correlation with other laboratory results and clinical findings is recommended.The [place] Free Light Chain was performed using the Binding Site Optilite immunoturbidimetric method. Result obtained with different assay methods or kits cannot be used interchangeably. Performed By: #### K LFRS ####[facility] LABCLIA [id number] [place] [address] [place] Immunoglobulin light chains.kappa/Immunogl obulin light chains.lambda (S) [Mass ratio] 1.56 Normal 0.26-1.65 [facility] Comment on above: Order Comment: Speci men Type: BLOOD SPECIMENOrdering Facility: [facility] Address: [address] [place] [address] Performed By: #### K LFRS ####[facility] LABIA [id number] [address] [place] Immunoglobulin light chains.lambda.free [Mass/Vol] 52.1 mg/L High 5.7-26.3 [facility] Comment on above: Order Comment: Speci men Type: BLOOD SPECIMENOrdering Facility: [facility] Address: [address] [place] [address] Result Comment: Rare ly, increased serum free [...] used interchangeably. Performed By: #### K LFRS ####[facility] LABIA [id number] [place] [address] [place] Osmolality Uron 07-11-2024 Osmolality (U) [Osmolality] 398 mosm/kg Normal 50-1200 [facility] Comment on above: Order Comment: Speci men Type: URINE SPECIMENOrdering Facility: [facility] Address: [address] [place] [address] Performed By: #### 2 695-5 ####[facility] LABIA [id number] [place] [address] [place] PLA2R, IMMUNOFLUORESCENCE, S (REFLEX ONLY)on 07-11-2024 PLA2R, IMMUNOFLUORESCENCE, S Negative Normal Negative [facility] Comment on above: Order Comment: Speci men Type: BLOOD SPECIMENOrdering Facility: [facility] Address: [address] [place] [address] Result Comment: PLA2 R is Negative ADDITIONAL INFORMATION This test was developed and its performance characteristicsdetermined by [facility] in a manner consistent withCLIA requirements. This test has not been cleared orapproved by the U.S. Food and Drug Administration.Test Performed by:[address] Director: Soy Loomis Ph.D.; CLIA# [id number] Performed By: #### P MNDCS, PLA2RI, THSD7A ####[facility] LABCLIA [id number] [place] [address] PRIMARY MEMBRANEOUS NEPHROPA THY DIAGNOSTIC CASCADE, SERon 07-11-2024 PHOSPHOLIPASE A2 RECEPTOR, FABIENNE, S <2 Normal [facility] Comment on above: Order Comment: Luz vaughan Type: BLOOD SPECIMENOrdering Facility: [facility] Address: [address] [place] [address] Result Comment: ---- REFERENCE VALUE <14 RU/mL: Negative>=14 to <20 RU/mL: Borderline>=20 RU/mL: PositiveTest Performed by:[address] Director: Soy Loomis Ph.D.; CLIA# [id number] Performed By: #### P MNDCS, PLA2RI, THSD7A ####[facility] LABCLIA [id number] [place] [address] PROTEIN ELECTROPHORESIS SERU M WITH TATIANA (P)on 07-11-2024 Albumin [Mass/Vol] 3.83 g/dL Normal 3.43-5.41 [facility] Comment on above: Order Comment: Luz vaughan Type: BLOOD SPECIMENOrdering Facility: [facility] Address: [address] [place] [address] Performed By: #### L [id number] ####[facility] LABIA [id number] [place] [address] [place] Alpha 1 globulin Elph [Mass/Vol] 0.27 g/dL Normal 0.18-0.43 [facility] Comment on above: Order Comment: Speci men Type: BLOOD SPECIMENOrdering Facility: [facility] Address: [address] [place] [address] Performed By: #### L [id number] ####[facility] LABIA [id number] [place] [address] [place] Alpha 2 globulin Elph [Mass/Vol] 0.92 g/dL Normal 0.42-0.98 [facility] Comment on above: Order Comment: Speci men Type: BLOOD SPECIMENOrdering Facility: [facility] Address: [address] [place] [address] Performed By: #### L [id number] ####[facility] HOSPITALIA [id number] [place] [address] [place] Beta globulin Elph [Mass/Vol] 0.69 g/dL Normal 0.61-1.17 [facility] Comment on above: Order Comment: Speci men Type: BLOOD SPECIMENOrdering Facility: [facility] Address: [address] [place] [address] Performed By: #### L [id number] ####[facility] LABIA [id number] [place] [address] [place] COMMENT (SERUM PROT ELECTRO) Monoclonal Protein analysis (immunofixation) is not indicated. Normal [facility] Comment on above: Order Comment: Speci men Type: BLOOD SPECIMENOrdering Facility: [facility] Address: [address] [place] [address] Performed By: #### L [id number] ####[facility] LABIA [id number] [place] [address] [place] Gamma globulin Elph [Mass/Vol] 0.48 g/dL Low 0.53-1.51 [facility] Comment on above: Order Comment: Speci men Type: BLOOD SPECIMENOrdering Facility: [facility] Address: [address] [place] [address] Performed By: #### L [id number] ####[facility] LABCLIA [id number] [address] M-PROTEIN LOCATION Normal [facility] Comment on above: Order Comment: Speci men Type: BLOOD SPECIMENOrdering Facility: [facility] Address: [address] [place] [address] Result Comment: Not Applicable. Performed By: #### L [id number] ####[facility] LABCLIA [id number] [place] [id number] [facility] [place] Protein Fractions [Interp] No definitive M protein is identified on protein electrophoresis. Normal No definitive M protein is identified on protein electrophore sis. [facility] Comment on above: Order Comment: Speci men Type: BLOOD SPECIMENOrdering Facility: [facility] Address: [address] [place] [address] Performed By: #### L [id number] ####[facility] LABCLIA [id number] [address] Protein.monoclonal Elph [Mass/Vol] 0.00 g/dL Normal <=0.00 [facility] Comment on above: Order Comment: Speci men Type: BLOOD SPECIMENOrdering Facility: [facility] Address: [address] [place] [address] Performed By: #### L [id number] ####[facility] LABCLIA [id number] [place] [id number] [facility] [place] SPE STAFF REVIEW Reviewed by Sebas Ocampo MD, Ph.D ([id number]) Normal [facility] Comment on above: Order Comment: Speci men Type: BLOOD SPECIMENOrdering Facility: [facility] Address: [address] [place] [address] Performed By: #### L [id number] ####[facility] LABCLIA [id number] [facility] [place] [address] [place] PT panel Coag (PPP)on 2024 INR Coag (PPP) [Relative time] 0.9 {INR} Normal 0.9-1.3 [facility] Comment on above: Order Comment: Speci men Type: BLOOD SPECIMENOrdering Facility: [facility] Address: [address] [place] [address] Result Comment: Melissa min K Antagonist (VKA) Therapeutic Range: INR 2 to 3 (Target INR of 2.5)Note: For patients treated with VKA drugs, such as warfarin, the [place] [employer] 2012 Guideline recommends [...] of 3).Ewa GH, et al. Chest 2012, 141:7S-47SJean Claude RA, et al. [facility] 2017, 70: 252-289 Performed By: #### 3 4528-0 ####[facility] LABORATORYCLIA [id number] [place] [address] [place] PT Coag (PPP) [Time] 10.3 s Normal 9.7-13.0 [facility] Comment on above: Order Comment: Speci men Type: BLOOD SPECIMENOrdering Facility: [facility] Address: [address] [place] [id number] Performed By: #### 3 4528-0 ####[facility] LABORATORYCLIA [id number] [place] [id number] [place] Potassium ?Tm Ur-sCncon 04- Potassium Unsp time (U) [Moles/Vol] 21.5 mmol/L Normal 10.0-160.0 [facility] Comment on above: Order Comment: Speci men Type: URINE SPECIMENOrdering Facility: [facility] Address: [address] [place] [address] Performed By: #### 3 5677-4, 2890-2, UACR, 48872-7, 92292-6 ####[facility] LABCLIA [id number] [facility] [place] [id number] [place] Prot SerPl-mCncon 07-11-2024 Protein [Mass/Vol] 6.2 g/dL Low 6.3-8.0 [facility] Comment on above: Order Comment: Speci men Type: BLOOD SPECIMENOrdering Facility: [facility] Address: [address] [place] [address] Performed By: #### 4 498-2, 4485-9, 2885-2 ####[facility] LABCLIA [id number] [place] [address] [place] Prot/Creat Uron 07-11-2024 Protein/Creatinine (U) [Mass ratio] 7.24 mg/mg High <0.15 [facility] Comment on above: Order Comment: Speci men Type: URINE SPECIMENOrdering Facility: [facility] Address: [address] [place] [address] Result Comment: Adul t Proteinuria Categories:<0.15 mg/mg is considered normal to mildly increased0.15 - 0.50 mg/mg is considered moderately increased>0.50 mg/mg is considered severely increasedKDIGO. (2013). KDIGO 2012 Clinical Practice Guideline for the Evaluation and Management of Chronic Kidney Disease. Official Journal of the International Society of Nephrology, 3(1), 1-150. Performed By: #### 3 5677-4, 2890-2, UACR, 95534-8, 70732-5 ####[facility] LABCLIA [id number] [address] [place] [address] [place] Protein/Creatinine (U) [Mass ratio]on 07-11-2024 Protein (U) [Mass/Vol] 333 mg/dL High 0-20 [facility] Comment on above: Order Comment: Speci men Type: URINE SPECIMENOrdering Facility: [facility] Address: [address] [place] [address] Performed By: #### 3 5677-4, 2890-2, UACR, 17560-7, 39704-1 ####[facility] LABCLIA [id number] [place] [address] [place] Sodium ?Tm Ur-sCncon 025 Sodium Unsp time (U) [Moles/Vol] 86 mmol/L Normal 14-216 [facility] Comment on above: Order Comment: Speci men Type: URINE SPECIMENOrdering Facility: [facility] Address: [address] [place] [address] Performed By: #### 3 5677-4, 2890-2, UACR, 53482-1, 14869-2 ####[facility] LABCLIA [id number] [place] [address] [place] THERAPY NTon 07-11-2024 THERAPY NT Normal [facility] THERAPY NT Normal [facility] THERAPY NT Normal [facility] THSD7A AB, S (REFLEX ONLY)on 07-11-2024 THSD7A AB, S Negative Normal Negative [facility] Comment on above: Order Comment: Speci men Type: BLOOD SPECIMENOrdering Facility: [facility] Address: [address] [place] [address] Result Comment: ---- ADDITIONAL INFORMATION This test was developed and its performance characteristicsdetermined by [facility] in a manner consistent withCLIA requirements. This test has not been cleared orapproved by the U.S. Food and Drug Administration.Test Performed by:[address] [id number] Director: Soy Loomis Ph.D.; CLIA# [id number] Performed By: #### P MNDCS, PLA2RI, THSD7A ####[facility] LABCLIA [id number] [place] [address] Urinalysis complete panel (U )on 07-11-2024 Bilirubin Ql (U) Negative Normal Negative [facility] Comment on above: Order Comment: Speci men Type: URINE SPECIMENOrdering Facility: [facility] Address: [address] [place] [address] Performed By: #### 2 4356-8 ####[facility] LABORATORYCLIA [id number] [address] [place] Clarity (Unsp spec) Clear Normal Clear [place] Comment on above: Order Comment: Speci men Type: URINE SPECIMENOrdering Facility: [facility] Address: [address] [place] [address] Performed By: #### 2 4356-8 ####[facility] LABORATORYCLIA [id number] [address] [place] Color (U) Yellow Normal Yellow [facility] Comment on above: Order Comment: Speci men Type: URINE SPECIMENOrdering Facility: [facility] Address: [address] [place] [address] Performed By: #### 2 4356-8 ####[facility] LABORATORYCLIA [id number] [address] [place] Epithelial cells LM.HPF (Urine sed) [#/Area] Few Normal [facility] Comment on above: Order Comment: Speci men Type: URINE SPECIMENOrdering Facility: [facility] Address: [address] [place] [address] Performed By: #### 2 4356-8 ####[facility] LABORATORYCLIA [id number] [place] [address] [place] Glucose Test strip (U) [Mass/Vol] 2+ Abnormal Negative [facility] Comment on above: Order Comment: Speci men Type: URINE SPECIMENOrdering Facility: [facility] Address: [address] [place] [address] Performed By: #### 2 4356-8 ####[facility] LABORATORYCLIA [id number] [place] [address] [place] Hemoglobin Ql (U) 1+ Abnormal Negative [facility] Comment on above: Order Comment: Speci men Type: URINE SPECIMENOrdering Facility: [facility] Address: [address] [place] [address] Performed By: #### 2 4356-8 ####[facility] LABORATORYCLIA [id number] [place] [address] [place] Ketones Ql (U) Negative Normal Negative [facility] Comment on above: Order Comment: Speci men Type: URINE SPECIMENOrdering Facility: [facility] Address: [address] [place] [address] Performed By: #### 2 4356-8 ####[facility] LABORATORYCLIA [id number] [address] [place] Leukocyte esterase Test strip Ql (U) Negative Normal Negative [facility] Comment on above: Order Comment: Speci men Type: URINE SPECIMENOrdering Facility: [facility] Address: [address] [place] [address] Performed By: #### 2 4356-8 ####[facility] LABORATORYCLIA [id number] [place] [address] [place] Nitrite Ql (U) Negative Normal Negative [facility] Comment on above: Order Comment: Speci men Type: URINE SPECIMENOrdering Facility: [facility] Address: [address] [place] [address] Performed By: #### 2 4356-8 ####[facility] LABORATORYCLIA [id number] [place] [address] [place] pH (U) 6.0 [pH] Normal 5.0-8.0 [facility] Comment on above: Order Comment: Speci men Type: URINE SPECIMENOrdering Facility: [facility] Address: [address] [place] [address] Performed By: #### 2 4356-8 ####[facility] LABORATORYCLIA [id number] [place] [address] [place] Protein (U) [Mass/Vol] 3+ Abnormal Negative [facility] Comment on above: Order Comment: Speci men Type: URINE SPECIMENOrdering Facility: [facility] Address: [address] [place] [address] Performed By: #### 2 4356-8 ####[facility] LABORATORYCLIA [id number] [address] RBC LM.HPF (Urine sed) [#/Area] 0-3 /HPF Normal 0-3 /HPF [facility] Comment on above: Order Comment: Speci men Type: URINE SPECIMENOrdering Facility: [facility] Address: [address] [place] [address] Performed By: #### 2 4356-8 ####[facility] LABORATORYCLIA [id number] [address] [place] Specific gravity (U) [Rel density] 1.020 Normal 1.005-1.030 [facility] Comment on above: Order Comment: Speci men Type: URINE SPECIMENOrdering Facility: [facility] Address: [address] [place] [address] Performed By: #### 2 4356-8 ####[facility] LABORATORYCLIA [id number] [address] Urobilinogen Ql (U) 0.2 EU/dL Normal 0.2-1.0 EU/dL [facility] Comment on above: Order Comment: Speci men Type: URINE SPECIMENOrdering Facility: [facility] Address: [address] [place] [address] Performed By: #### 2 4356-8 ####[facility] LABORATORYCLIA [id number] [address] WBC LM.HPF (Urine sed) [#/Area] 0-5 /HPF Normal 0-5 /HPF [facility] Comment on above: Order Comment: Speci men Type: URINE SPECIMENOrdering Facility: [facility] Address: [address] [place] [address] Performed By: #### 2 4356-8 ####[facility] LABORATORYCLIA [id number] [address] [place] ALLIED HEALTHon 07-10-2024 ALLIED HEALTH Normal [facility] ALLIED HEALTH Normal [facility] Basic metabolic 2000 panelon 07-10-2024 Anion gap [Moles/Vol] 13 mmol/L Normal 8-15 [facility] Comment on above: Order Comment: Speci men Type: BLOOD SPECIMENOrdering Facility: [facility] Address: [address] [place] [address] Performed By: #### 2 4321-2 ####[facility] LABORATORYCLIA [id number] [place] [address] [place] Calcium [Mass/Vol] 8.6 mg/dL Normal 8.5-10.2 [facility] Comment on above: Order Comment: Speci men Type: BLOOD SPECIMENOrdering Facility: [facility] Address: [address] [place] [address] Performed By: #### 2 4321-2 ####[facility] LABORATORYCLIA [id number] [place] [address] [place] Chloride [Moles/Vol] 107 mmol/L Normal 98-107 [facility] Comment on above: Order Comment: Speci men Type: BLOOD SPECIMENOrdering Facility: [facility] Address: [address] [place] [address] Performed By: #### 2 4321-2 ####[facility] LABORATORYCLIA [id number] [place] [address] [place] CO2 [Moles/Vol] 22 mmol/L Normal 22-30 [facility] Comment on above: Order Comment: Speci men Type: BLOOD SPECIMENOrdering Facility: [facility] Address: [address] [place] [address] Performed By: #### 2 4321-2 ####[facility] LABORATORYCLIA [id number] [place] [id number] [place] Creatinine [Mass/Vol] 6.19 mg/dL High 0.73-1.22 [facility] Comment on above: Order Comment: Speci men Type: BLOOD SPECIMENOrdering Facility: [facility] Address: [address] [place] [address] Performed By: #### 2 4321-2 ####[facility] LABORATORYCLIA [id number] [place] [address] [place] Creatinine and Glomerular filtration rate.predicted panel (S/P/Bld) 9 mL/min/1.73m??? Low >=60 [facility] Comment on above: Order Comment: Luz vaughan Type: BLOOD SPECIMENOrdering Facility: [facility] Address: [address] [place] [address] Result Comment: Breanne mated Glomerular Filtration Rate [...] Performed By: #### 2 4321-2 ####[facility] LABORATORYCLIA [id number] [place] [address] [place] Glucose [Mass/Vol] 130 mg/dL High 74-99 [facility] Comment on above: Order Comment: Luz vaughan Type: BLOOD SPECIMENOrdering Facility: [facility] Address: [address] [place] [address] Result Comment: The [place] [employer] (ADA) provides guidance for cutoff [...] Standards of Medical Care in Diabetes 2016, [place] [employer]. Diabetes Care. 2016.39(Suppl 1). Performed By: #### 2 4321-2 ####[facility] LABORATORYCLIA [id number] [place] [id number] [place] Potassium [Moles/Vol] 4.7 mmol/L Normal 3.7-5.1 [facility] Comment on above: Order Comment: Luz vaughan Type: BLOOD SPECIMENOrdering Facility: [facility] Address: [address] [place] [address] Performed By: #### 2 4321-2 ####[facility] LABORATORYCLIA [id number] [address] Sodium [Moles/Vol] 142 mmol/L Normal 136-144 [facility] Comment on above: Order Comment: Speci men Type: BLOOD SPECIMENOrdering Facility: [facility] Address: [address] [place] [address] Performed By: #### 2 4321-2 ####[facility] LABORATORYCLIA [id number] [address] STATES [facility] Urea nitrogen [Mass/Vol] 78 mg/dL High 9-24 [facility] Comment on above: Order Comment: Speci men Type: BLOOD SPECIMENOrdering Facility: [facility] Address: [address] [place] [address] Performed By: #### 2 4321-2 ####[facility] LABORATORYCLIA [id number] [address] CBC W Auto Differential pane l (Bld)on 07-10-2024 Basophils (Bld) [#/Vol] 10*3/uL Normal <0.11 [facility] Comment on above: Order Comment: Speci men Type: BLOOD SPECIMENOrdering Facility: [facility] Address: [address] [place] [address] Performed By: #### 5 7021-8 ####[facility] LABORATORYCLIA [id number] [address] Basophils/100 WBC (Bld) 0.2 % Normal [facility] Comment on above: Order Comment: Speci men Type: BLOOD SPECIMENOrdering Facility: [facility] Address: [address] [place] [address] Performed By: #### 5 7021-8 ####[facility] LABORATORYCLIA [id number] [address] Differential cell count method Nom (Bld) Auto Normal [facility] Comment on above: Order Comment: Speci men Type: BLOOD SPECIMENOrdering Facility: [facility] Address: [address] [place] [address] Performed By: #### 5 7021-8 ####[facility] LABORATORYCLIA [id number] [place] [address] [place] Eosinophils (Bld) [#/Vol] 0.24 10*3/uL Normal <0.46 [facility] Comment on above: Order Comment: Speci men Type: BLOOD SPECIMENOrdering Facility: [facility] Address: [address] [place] [address] Performed By: #### 5 7021-8 ####[facility] LABORATORYCLIA [id number] [place] [address] [place] Eosinophils/100 WBC (Bld) 4.5 % Normal [facility] Comment on above: Order Comment: Speci men Type: BLOOD SPECIMENOrdering Facility: [facility] Address: [address] [place] [address] Performed By: #### 5 7021-8 ####[facility] LABORATORYCLIA [id number] [address] [place] Erythrocyte distribution width (RBC) [Ratio] 13.4 % Normal 11.5-15.0 [facility] Comment on above: Order Comment: Speci men Type: BLOOD SPECIMENOrdering Facility: [facility] Address: [address] [place] [address] Performed By: #### 5 7021-8 ####ADKINS LABORATORYCLIA [id number] [address] [place] Hematocrit (Bld) [Volume fraction] 35.6 % Low 39.0-51.0 [facility] Comment on above: Order Comment: Speci men Type: BLOOD SPECIMENOrdering Facility: [facility] Address: [address] [place] [address] Performed By: #### 5 7021-8 ####ADKINS LABORATORYCLIA [id number] [address] [place] Hemoglobin (Bld) [Mass/Vol] 11.7 g/dL Low 13.0-17.0 [facility] Comment on above: Order Comment: Speci men Type: BLOOD SPECIMENOrdering Facility: [facility] Address: [address] [place] [address] Performed By: #### 5 7021-8 ####ADKINS LABORATORYCLIA [id number] [place] [address] [place] Immature granulocytes (Bld) [#/Vol] 0.03 10*3/uL Normal <0.10 [facility] Comment on above: Order Comment: Speci men Type: BLOOD SPECIMENOrdering Facility: [facility] Address: [address] [place] [address] Performed By: #### 5 7021-8 ####ADKINS LABORATORYCLIA [id number] [address] [place] Immature granulocytes/100 WBC (Bld) 0.6 % Normal [facility] Comment on above: Order Comment: Speci men Type: BLOOD SPECIMENOrdering Facility: [facility] Address: [address] [place] [address] Performed By: #### 5 7021-8 ####ADKINS LABORATORYCLIA [id number] [place] [address] [place] Lymphocytes (Bld) [#/Vol] 1.22 10*3/uL Normal 1.00-4.00 [facility] Comment on above: Order Comment: Speci men Type: BLOOD SPECIMENOrdering Facility: [facility] Address: [address] [place] [address] Performed By: #### 5 7021-8 ####ADKINS LABORATORYCLIA [id number] [place] [address] [place] Lymphocytes/100 WBC (Bld) 22.9 % Normal [facility] Comment on above: Order Comment: Speci men Type: BLOOD SPECIMENOrdering Facility: [facility] Address: [address] [place] [address] Performed By: #### 5 7021-8 ####ADKINS LABORATORYCLIA [id number] [place] [address] [place] MCH (RBC) [Entitic mass] 28.9 pg Normal 26.0-34.0 [facility] Comment on above: Order Comment: Speci men Type: BLOOD SPECIMENOrdering Facility: [facility] Address: [address] [place] [address] Performed By: #### 5 7021-8 ####ADKINS LABORATORYCLIA [id number] [address] MCHC (RBC) [Mass/Vol] 32.9 g/dL Normal 30.5-36.0 [facility] Comment on above: Order Comment: Speci men Type: BLOOD SPECIMENOrdering Facility: [facility] Address: [address] [place] [address] Performed By: #### 5 7021-8 ####ADKINS LABORATORYCLIA [id number] [address] MCV (RBC) [Entitic vol] 87.9 fL Normal 80.0-100.0 [facility] Comment on above: Order Comment: Speci men Type: BLOOD SPECIMENOrdering Facility: [facility] Address: [address] [place] [address] Performed By: #### 5 7021-8 ####ADKINS LABORATORYCLIA [id number] [address] Monocytes (Bld) [#/Vol] 0.54 10*3/uL Normal <0.87 [facility] Comment on above: Order Comment: Speci men Type: BLOOD SPECIMENOrdering Facility: [facility] Address: [address] [place] [address] Performed By: #### 5 7021-8 ####ADKINS LABORATORYCLIA [id number] [address] Monocytes/100 WBC (Bld) 10.1 % Normal [facility] Comment on above: Order Comment: Speci men Type: BLOOD SPECIMENOrdering Facility: [facility] Address: [address] [place] [address] Performed By: #### 5 7021-8 ####ADKINS LABORATORYCLIA [id number] [address] [place] Neutrophils (Bld) [#/Vol] 3.29 10*3/uL Normal 1.45-7.50 [facility] Comment on above: Order Comment: Speci men Type: BLOOD SPECIMENOrdering Facility: [facility] Address: [address] [place] [address] Performed By: #### 5 7021-8 ####ADKINS LABORATORYCLIA [id number] [address] [place] Neutrophils/100 WBC (Bld) 61.7 % Normal [facility] Comment on above: Order Comment: Speci men Type: BLOOD SPECIMENOrdering Facility: [facility] Address: [address] [place] [address] Performed By: #### 5 7021-8 ####ADKINS LABORATORYCLIA [id number] [place] [address] [place] Nucleated RBC (Bld) [#/Vol] 10*3/uL Normal <0.01 [facility] Comment on above: Order Comment: Speci men Type: BLOOD SPECIMENOrdering Facility: [facility] Address: [address] [place] [address] Performed By: #### 5 7021-8 ####ADKINS LABORATORYCLIA [id number] [place] [address] [place] Nucleated RBC/100 WBC (Bld) [Ratio] 0.0 /100 WBC Normal [facility] Comment on above: Order Comment: Speci men Type: BLOOD SPECIMENOrdering Facility: [facility] Address: [address] [place] [address] Performed By: #### 5 7021-8 ####ADKINS LABORATORYCLIA [id number] [place] [address] [place] Platelet mean volume (Bld) [Entitic vol] 8.7 fL Low 9.0-12.7 [facility] Comment on above: Order Comment: Speci men Type: BLOOD SPECIMENOrdering Facility: [facility] Address: [address] [place] [address] Performed By: #### 5 7021-8 ####ADK[facility] LABORATORYCLIA [id number] [place] [address] [place] Platelets (Bld) [#/Vol] 277 10*3/uL Normal 150-400 [facility] Comment on above: Order Comment: Speci men Type: BLOOD SPECIMENOrdering Facility: [facility] Address: [address] [place] [address] Performed By: #### 5 7021-8 ####ADK[facility] LABORATORYCLIA [id number] [address] RBC (Bld) [#/Vol] 4.05 10*6/uL Low 4.20-6.00 [place] Comment on above: Order Comment: Speci men Type: BLOOD SPECIMENOrdering Facility: [facility] Address: [address] [place] [address] Performed By: #### 5 7021-8 ####[facility] LABORATORYCLIA [id number] [address] WBC (Bld) [#/Vol] 5.33 10*3/uL Normal 3.70-11.00 [place] Comment on above: Order Comment: Speci men Type: BLOOD SPECIMENOrdering Facility: [facility] Address: [address] [place] [address] Performed By: #### 5 7021-8 ####ADK[facility] LABORATORYCLIA [id number] [address] Comprehensive metabolic 2000 panelon 07-10-2024 Albumin [Mass/Vol] 3.5 g/dL Low 3.9-4.9 [facility] Comment on above: Order Comment: Speci men Type: BLOOD SPECIMENOrdering Facility: [facility] Address: [address] [place] [address] Performed By: #### 2 4323-8, ####ADKINS LABORATORYCLIA [id number] [address] ALP [Catalytic activity/Vol] 80 U/L Normal 38-113 [facility] Comment on above: Order Comment: Speci men Type: BLOOD SPECIMENOrdering Facility: [facility] Address: [address] [place] [address] Performed By: #### 2 4323-8, ####ADK[facility] LABORATORYCLIA [id number] [place] [address] [place] ALT [Catalytic activity/Vol] 10 U/L Normal 10-54 [facility] Comment on above: Order Comment: Speci men Type: BLOOD SPECIMENOrdering Facility: [facility] Address: [address] [place] [address] Performed By: #### 2 432-8, ####ADK[facility] LABORATORYCLIA [id number] [place] [address] [place] Anion gap [Moles/Vol] 14 mmol/L Normal 8-15 [facility] Comment on above: Order Comment: Speci men Type: BLOOD SPECIMENOrdering Facility: [facility] Address: [address] [place] [address] Performed By: #### 2 8, ####ADK[facility] LABORATORYCLIA [id number] [address] [place] AST [Catalytic activity/Vol] 11 U/L Low 14-40 [facility] Comment on above: Order Comment: Speci men Type: BLOOD SPECIMENOrdering Facility: [facility] Address: [address] [place] [address] Performed By: #### 2 432-8, ####ADKINS LABORATORYCLIA [id number] [place] [address] [place] Bilirubin [Mass/Vol] 0.2 mg/dL Normal 0.2-1.3 [facility] Comment on above: Order Comment: Speci men Type: BLOOD SPECIMENOrdering Facility: [facility] Address: [address] [place] [address] Performed By: #### 2 432-8, ####ADKINS LABORATORYCLIA [id number] [address] [place] Calcium [Mass/Vol] 9.2 mg/dL Normal 8.5-10.2 [facility] Comment on above: Order Comment: Speci men Type: BLOOD SPECIMENOrdering Facility: [facility] Address: [address] [place] [address] Performed By: #### 2 8, ####ADKINS LABORATORYCLIA [id number] [place] [address] [place] Chloride [Moles/Vol] 104 mmol/L Normal 98-107 [facility] Comment on above: Order Comment: Luz vaughan Type: BLOOD SPECIMENOrdering Facility: [facility] Address: [address] [place] [address] Performed By: #### 2 4323-8, ####ADK[facility] LABORATORYCLIA [id number] [place] [address] [place] CO2 [Moles/Vol] 23 mmol/L Normal 22-30 [facility] Comment on above: Order Comment: Luz vaughan Type: BLOOD SPECIMENOrdering Facility: [facility] Address: [address] [place] [address] Performed By: #### 2 4323-8, ####ADK[facility] LABORATORYCLIA [id number] [place] [address] [place] Creatinine [Mass/Vol] 6.77 mg/dL High 0.73-1.22 [facility] Comment on above: Order Comment: Luz vaughan Type: BLOOD SPECIMENOrdering Facility: [facility] Address: [address] [place] [address] Performed By: #### 2 4323-8, ####[facility] LABORATORYCLIA [id number] [address] Creatinine and Glomerular filtration rate.predicted panel (S/P/Bld) 8 mL/min/1.73m??? Low >=60 [facility] Comment on above: Order Comment: Luz vaughan Type: BLOOD SPECIMENOrdering Facility: [facility] Address: [address] [place] [address] Result Comment: Breanne mated Glomerular Filtration Rate [...] reflect actual GFR. Performed By: #### 2 4328, ####[facility] LABORATORYCLIA [id number] [place] [address] [place] Glucose [Mass/Vol] 141 mg/dL High 74-99 [facility] Comment on above: Order Comment: Luz vaughan Type: BLOOD SPECIMENOrdering Facility: [facility] Address: [address] [place] [address] Result Comment: The [place] Diabetes Association (ADA) provides guidance for cutoff [...] Standards of Medical Care in Diabetes 2016, [place] [employer]. Diabetes Care. 2016.39(Suppl 1). Performed By: #### 2 43206-08, ####HARROLD LABORATORYCLIA [id number] [place] [address] [place] Potassium [Moles/Vol] 5.9 mmol/L High 3.7-5.1 [facility] Comment on above: Order Comment: Luz vaughan Type: BLOOD SPECIMENOrdering Facility: [facility] Address: [address] [place] [address] Performed By: #### 2 43206-08, ####HARROLD LABORATORYCLIA [id number] [place] [address] [place] Protein [Mass/Vol] 6.5 g/dL Normal 6.3-8.0 [facility] Comment on above: Order Comment: Luz vaughan Type: BLOOD SPECIMENOrdering Facility: [facility] Address: [address] [place], [place] [address] Performed By: #### 2 43238, ####HARROLD LABORATORYCLIA [id number] [place] [id number] [place] Sodium [Moles/Vol] 141 mmol/L Normal 136-144 [facility] Comment on above: Order Comment: Speci men Type: BLOOD SPECIMENOrdering Facility: [facility] Address: [address] [place], [place] [address] Performed By: #### 2 4323-8, ####ADKINS LABORATORYCLIA [id number] [place] [address] [place] Urea nitrogen [Mass/Vol] 82 mg/dL High 9-24 [facility] Comment on above: Order Comment: Speci men Type: BLOOD SPECIMENOrdering Facility: [facility] Address: [address] [place] [address] Performed By: #### 2 4328, ####ADKINS LABORATORYCLIA [id number] [place] [address] [facility] ED NOTEon 07-10-2024 ED NOTE HNO ID: [id number] Author: ART PAYNE RN Service: ? Author Type: Registered Nurse Type: ED Notes Filed: 07/10/2024 20:41 Note Text: Heads up given to 3 south charge auditor [facility] ED NOTE HNO ID: [id number] Author: SANDRA WHITEHEAD RN Service: Nursing Author Type: Registered Nurse Type: ED Notes Filed: 07/10/2024 16:25 Note Text: Patient speaking to virtual triage doctor Normal [facility] ED PROV NOTEon 07-10-2024 ED PROV NOTE Normal [facility] ED Triage Noteon 07-10-2024 ED Triage Note Normal [facility] Magnesium SerPl-mCncon 07-10 Magnesium [Mass/Vol] 2.3 mg/dL Normal 1.7-2.3 [facility] Comment on above: Order Comment: Speci men Type: BLOOD SPECIMENOrdering Facility: [facility] Address: [address] [place] [address] Performed By: #### 2 4323-8, ####ADKINS LABORATORYCLIA [id number] [place] [address] [facility] [place] NURSING PROGon 04-09-2025 NURSING PROG [facility] US KIDNEY/BLADDERon 07-11-19 25 US KIDNEY/BLADDER [facility] XR CHEST 2V FRONTAL/LATon XR CHEST 2V FRONTAL/LAT [facility] 36on 06-28-2024 36 S: Patient spoke wit h CAC nurse regarding abnormal labs results being called by the [facility]. Hx: DM B: Onset of symptoms/concern labs were drawn from the [facility] at his appointment on 06/27/24 having an urgent notification at 15:54 was seen in the office for a 2-month follow up A: Bun 79.9 CR 4.3 Potassium 7.1 R: Paging Dr. Scott at 3:55 No further needs at this time. Reason for Disposition Lab or radiology calling with test results Protocols used: PCP Call - No [id number] [facility] ANES POSTPROC EVALon 025 ANES POSTPROC EVAL Normal [facility] ANES PRE-OPon 05-13-2024 ANES PRE-OP Normal [facility] Colonoscopy Study observatio non 05-13-2024 [facility] Gastrointestinal Endoscopy Patient Name: José Manuel Ashton Procedure Date: 05/13/2024 10:48 AM Date of : 1960 Admit Type: Outpatient Room: [place] [address] Gender: Male Note Status: Finalized Attending MD: Artem Ahmadi MD, [id number] Procedure: Colonoscopy Indications: High risk colon cancer [...] provided to (more content not included)... [facility] Radiology Study observation (narrative) [facility] HISTORY PHYSICALon 5 HISTORY PHYSICAL Normal [facility] Pathology biopsy report Kade (Tiss)on 05-13-2024 CASE REPORT Normal [facility] Comment on above: Order Comment: Speci men Type: TISSUE SPECIMENOrdering Facility: [facility] Address: [address] [place] [address] Result Comment: Surg ical Pathology Report Case: [id number] Provider: Artem Ahmadi MD Collected: 05/13/2024 11:27 AMOrdering Location: [place] [facility] Received: 05/14/2024 08:40 AMPathologist: Machelle Ignacio MDSpecimens: A) - Colon, Transverse, Polyp, x 3 B) - Colon, Cecum, Polyp, x 2 C) - Colon, Hepatic Flexure, Polyp D) - Rectum, Polyp Performed By: #### 6 6121-5 ####[facility]NACLIA [id number] [address] DIAGNOSIS COMMENT In parts B and C multiple additional deeper levels have been examined. Normal [facility] Comment on above: Order Comment: Speci men Type: TISSUE SPECIMENOrdering Facility: [facility] Address: [address] [place] [address] Performed By: #### 6 6121-5 ####[facility] IND[facility]NACLIA [id number] [address] FINAL DIAGNOSIS Normal [facility] Comment on above: Order Comment: Speci men Type: TISSUE SPECIMENOrdering Facility: [facility] Address: [address] [place] [address] Result Comment: A. T ransverse colon polyp (x3), polypectomy:-- Fragments of tubular adenoma.B. Cecum colon polyp (x2), polypectomy:-- Tubular adenoma, see comment.C. Hepatic flexure polyp, polypectomy:-- Polypoid fragment of colonic mucosa with no significant histopathologic abnormalities, see comment.D. Rectum polyp, polypectomy:-- Tubular adenoma. at 1506 EST Performed By: #### 6 6121-5 ####[facility] LABORATORYCLIA [id number] [address] [place] [facility] FINAL PERFORMING LAB Normal [facility] Comment on above: Order Comment: Speci men Type: TISSUE SPECIMENOrdering Facility: [facility] Address: [address] [place] [address] Result Comment: Diag nostic interpretation performed at: [facility], [address] [place] [address] CLIA# [id number] Director: Kahlil Lewis MD Performed By: #### 6 6121-5 ####[facility] LABORATORYCLIA [id number] [address] GROSS DESCRIPTION Normal [facility] Comment on above: Order Comment: Speci men Type: TISSUE SPECIMENOrdering Facility: [facility] Address: [address] [place] [address] Result Comment: A. C olon, Transverse, PolypReceived in formalin labeled transverse colon polyp are multiple irregular flores soft tissue fragments aggregating to 0.8 x 0.4 x 0.2 cm. The specimen is submitted entirely in A1.B. Colon, Cecum, PolypReceived in formalin labeled cecum colon polyp is an irregular flores soft tissue fragment measuring 0.6 x 0.3 x 0.3 cm. The specimen is submitted entirely in B1.C. Colon, Hepatic Flexure, PolypReceived in formalin labeled hepatic flexure polyp is an irregular flores soft tissue fragment measuring 0.3 x 0.3 x 0.2 cm. The specimen is submitted entirely in C1.D. Rectum, PolypReceived in formalin labeled rectal polyp is an irregular flores soft tissue fragment measuring 0.2 x 0.2 x 0.2 cm. The specimen is submitted entirely in D1.Gross examination performed at [facility], [address] [place] [address] CLIA#[id number] May 14, 2024 2:55 PM Performed By: #### 6 6121-5 ####[facility] LABORATORYCLIA [id number] [facility] VENOUS BLOOD GAS, POC (AK,MH ,MR)on 05-13-2024 Base Excess (POCT) -5 mmol/L Abnormal -2 - 3 mmol/L [facility] CO2 [Moles/Vol] 23 mmol/L Abnormal 24 - 29 mmol/L [facility] Glucose [Mass/Vol] 128 mg/dL Abnormal 70 - 105 mg/dL [facility] HCO3 (Bld) [Moles/Vol] 22.1 mmol/L Abnormal 23.0 - 28.0 mmol/L [facility] Hematocrit (Bld) [Volume fraction] 34 % Abnormal [facility] Hemoglobin (Bld) [Mass/Vol] 11.6 g/dL Abnormal 12.0 - 17.0 g/dL [facility] Interpretation and review of laboratory results Abnormal [facility] Ionized Ca (POCT) 1.28 mmol/L 1.12 - 1.3 2 mmol/L [facility] pCO2,Venous(POCT) 46.4 [facility] pH,Venous(POCT) 7.286 Abnormal [facility] pO2,Venous(POCT) [facility] Potassium [Moles/Vol] 4.4 mmol/L 3.5 - 4.9 mmol/L [facility] Pt Note NEW UNIT CHANGE iCa: md/dL to mmol/L starting 09/30 [facility] sO2 (POCT) <> 60 - 85 % [facility] Sodium [Moles/Vol] 144 mmol/L 138 - 146 mmol/L [facility] Meter ID:[id number] Location:[facility], [address] [place] [address], [address] [place] [address] POINT OF CARE [facility] 36on 04-27-2024 36 S: Patient's sister (Janell) [...] doesn't require PA. Per Dr. Scott - I'll call the pharmacy Return call back to Janell with an update. Recommend calling the pharmacy in 1 hour to see if medication is ready. Any issues, please give the office a call back. Sister verbalizes understanding. Reason for Disposition [1] Caller has URGENT medicine question about med that PCP or specialist prescribed AND [2] triager unable to answer question Protocols used: Medication Question [id number] Normal [facility] Basic metabolic 2000 panelon 04-26-2024 Anion gap [Moles/Vol] 11 mmol/L Normal 8-15 [facility] Comment on above: Order Comment: Luz vaughan Type: BLOOD SPECIMENOrdering Facility: External Submitter Address: , , Performed By: #### 1 988-5, ####[facility] LABORATORYCLIA [id number] [place] [address] [place] Calcium [Mass/Vol] 9.4 mg/dL Normal 8.5-10.2 [facility] Comment on above: Order Comment: Luz vaughan Type: BLOOD SPECIMENOrdering Facility: External Submitter Address: , , Performed By: #### 1 988-5, ####[facility] LABORATORYCLIA [id number] [place] [address] [place] Chloride [Moles/Vol] 108 mmol/L High 98-107 [facility] Comment on above: Order Comment: Luz vaughan Type: BLOOD SPECIMENOrdering Facility: External Submitter Address: , , Performed By: #### 1 988-5, ####[facility] LABORATORYCLIA [id number] [place] [address] [place] CO2 [Moles/Vol] 22 mmol/L Normal 22-30 [facility] Comment on above: Order Comment: Luz vaughan Type: BLOOD SPECIMENOrdering Facility: External Submitter Address: , , Performed By: #### 1 988-5, ####[facility] LABORATORYCLIA [id number] [place] [address] [place] Creatinine [Mass/Vol] 3.41 mg/dL High 0.73-1.22 [facility] Comment on above: Order Comment: Luz vaughan Type: BLOOD SPECIMENOrdering Facility: External Submitter Address: , , Performed By: #### 1 988-5, ####[facility] LABORATORYCLIA [id number] [place] [address] [place] Creatinine and Glomerular filtration rate.predicted panel (S/P/Bld) 19 mL/min/1.73m??? Low >=60 [facility] Comment on above: Order Comment: [...] actual GFR. Performed By: #### 1 988-5, 45118-9 ####[facility] LABORATORYCLIA [id number] [place] [address] [place] Glucose [Mass/Vol] 128 mg/dL High 74-99 [facility] Comment on above: Order Comment: Luz vaughan Type: BLOOD SPECIMENOrdering Facility: External Submitter Address: , , Result Comment: The [place] [employer] (ADA) provides guidance for cutoff [...] Standards of Medical Care in Diabetes 2016, [place] [employer]. Diabetes Care. 2016.39(Suppl 1). Performed By: #### 1 988-5, 61237-5 ####[facility] LABORATORYCLIA [id number] [place] [id number] [place] Potassium [Moles/Vol] 6.2 mmol/L Critically high 3.7-5.1 [facility] Comment on above: Order Comment: Luz vaughan Type: BLOOD SPECIMENOrdering Facility: External Submitter Address: , , Performed By: #### 1 988-5, 61406-3 ####[facility] LABORATORYCLIA [id number] [place], [place] [address] [place] [address] STATES [facility] Sodium [Moles/Vol] 141 mmol/L Normal 136-144 [facility] Comment on above: Order Comment: Speci men Type: BLOOD SPECIMENOrdering Facility: External Submitter Address: , , Performed By: #### 1 988-5, 12257-7 ####[facility] LABORATORYCLIA [id number] [address] [place] Urea nitrogen [Mass/Vol] 59 mg/dL High 12-25 [facility] Comment on above: Order Comment: Speci men Type: BLOOD SPECIMENOrdering Facility: External Submitter Address: , , Performed By: #### 1 988-5, 50614-2 ####[facility] LABORATORYCLIA [id number] [address] [place] CBC W Auto Differential pane l (Bld)on 04-26-2024 Basophils (Bld) [#/Vol] 10*3/uL Normal <0.11 [facility] Comment on above: Order Comment: Speci men Type: BLOOD SPECIMENOrdering Facility: [facility] Address: [address] [place] [address] Performed By: #### 5 7021-8 ####[facility] LABORATORYCLIA [id number] [address] Basophils/100 WBC (Bld) 0.3 % Normal [facility] Comment on above: Order Comment: Speci men Type: BLOOD SPECIMENOrdering Facility: [facility] Address: [address] [place] [address] Performed By: #### 5 7021-8 ####[facility] LABORATORYCLIA [id number] [address] Differential cell count method Nom (Bld) Auto Normal [facility] Comment on above: Order Comment: Speci men Type: BLOOD SPECIMENOrdering Facility: [facility] [facility] Address: [address] [place] [address] Performed By: #### 5 7021-8 ####[facility] LABORATORYCLIA [id number] [place] [address] [place] Eosinophils (Bld) [#/Vol] 0.25 10*3/uL Normal <0.46 [facility] Comment on above: Order Comment: Speci men Type: BLOOD SPECIMENOrdering Facility: [facility] Address: [address] [place] [address] Performed By: #### 5 7021-8 ####[facility] LABORATORYCLIA [id number] [address] [place] Eosinophils/100 WBC (Bld) 4.3 % Normal [facility] Comment on above: Order Comment: Speci men Type: BLOOD SPECIMENOrdering Facility: [facility] Address: [address] [place] [address] Performed By: #### 5 7021-8 ####[facility] LABORATORYCLIA [id number] [address] [place] Erythrocyte distribution width (RBC) [Ratio] 14.0 % Normal 11.5-15.0 [facility] Comment on above: Order Comment: Speci men Type: BLOOD SPECIMENOrdering Facility: [facility] Address: [address] [place] [address] Performed By: #### 5 7021-8 ####[facility] LABORATORYCLIA [id number] [address] [place] Hematocrit (Bld) [Volume fraction] 34.2 % Low 39.0-51.0 [facility] Comment on above: Order Comment: Speci men Type: BLOOD SPECIMENOrdering Facility: [facility] Address: [address] [place] [address] Performed By: #### 5 7021-8 ####[facility] LABORATORYCLIA [id number] [address] [place] Hemoglobin (Bld) [Mass/Vol] 11.0 g/dL Low 13.0-17.0 [facility] Comment on above: Order Comment: Speci men Type: BLOOD SPECIMENOrdering Facility: [facility] Address: [address] [place] [address] Performed By: #### 5 7021-8 ####[facility] LABORATORYCLIA [id number] [place] [address] [place] Immature granulocytes (Bld) [#/Vol] 0.03 10*3/uL Normal <0.10 [facility] Comment on above: Order Comment: Speci men Type: BLOOD SPECIMENOrdering Facility: [facility] Address: [address] [place] [address] Performed By: #### 5 7021-8 ####[facility] LABORATORYCLIA [id number] [address] [place] Immature granulocytes/100 WBC (Bld) 0.5 % Normal [facility] Comment on above: Order Comment: Speci men Type: BLOOD SPECIMENOrdering Facility: [facility] Address: [address] [place] [address] Performed By: #### 5 7021-8 ####[facility] LABORATORYCLIA [id number] [place] [address] [place] Lymphocytes (Bld) [#/Vol] 1.35 10*3/uL Normal 1.00-4.00 [facility] Comment on above: Order Comment: Speci men Type: BLOOD SPECIMENOrdering Facility: [facility] Address: [address] [place] [address] Performed By: #### 5 7021-8 ####[facility] LABORATORYCLIA [id number] [address] Lymphocytes/100 WBC (Bld) 23.4 % Normal [facility] Comment on above: Order Comment: Speci men Type: BLOOD SPECIMENOrdering Facility: [facility] Address: [address] [place] [address] Performed By: #### 5 7021-8 ####[facility] LABORATORYCLIA [id number] [place] [address] [place] MCH (RBC) [Entitic mass] 28.5 pg Normal 26.0-34.0 [facility] Comment on above: Order Comment: Speci men Type: BLOOD SPECIMENOrdering Facility: [facility] Address: [address] [place] [address] Performed By: #### 5 7021-8 ####[facility] LABORATORYCLIA [id number] [address] [place] MCHC (RBC) [Mass/Vol] 32.2 g/dL Normal 30.5-36.0 [facility] Comment on above: Order Comment: Speci men Type: BLOOD SPECIMENOrdering Facility: [facility] Address: [address] [place] [address] Performed By: #### 5 7021-8 ####[facility] LABORATORYCLIA [id number] [address] [place] MCV (RBC) [Entitic vol] 88.6 fL Normal 80.0-100.0 [facility] Comment on above: Order Comment: Speci men Type: BLOOD SPECIMENOrdering Facility: [facility] Address: [address] [place] [address] Performed By: #### 5 7021-8 ####[facility] LABORATORYCLIA [id number] [address] [place] Monocytes (Bld) [#/Vol] 0.52 10*3/uL Normal <0.87 [facility] Comment on above: Order Comment: Speci men Type: BLOOD SPECIMENOrdering Facility: [facility] Address: [address] [place] [address] Performed By: #### 5 7021-8 ####[facility] LABORATORYCLIA [id number] [address] Monocytes/100 WBC (Bld) 9.0 % Normal [facility] Comment on above: Order Comment: Speci men Type: BLOOD SPECIMENOrdering Facility: [facility] Address: [address] [place] [address] Performed By: #### 5 7021-8 ####[facility] LABORATORYCLIA [id number] [address] [place] Neutrophils (Bld) [#/Vol] 3.61 10*3/uL Normal 1.45-7.50 [facility] Comment on above: Order Comment: Speci men Type: BLOOD SPECIMENOrdering Facility: [facility] Address: [address] [place] [address] Performed By: #### 5 7021-8 ####[facility] LABORATORYCLIA [id number] [place] [address] [place] Neutrophils/100 WBC (Bld) 62.5 % Normal [facility] Comment on above: Order Comment: Speci men Type: BLOOD SPECIMENOrdering Facility: [facility] Address: [address] [place] [address] Performed By: #### 5 7021-8 ####AD[facility] LABORATORYCLIA [id number] [place] [address] [place] Nucleated RBC (Bld) [#/Vol] 10*3/uL Normal <0.01 [facility] Comment on above: Order Comment: Speci men Type: BLOOD SPECIMENOrdering Facility: [facility] Address: [address] [place] [address] Performed By: #### 5 7021-8 ####[facility] LABORATORYCLIA [id number] [place] [address] [place] Nucleated RBC/100 WBC (Bld) [Ratio] 0.0 /100 WBC Normal [facility] Comment on above: Order Comment: Speci men Type: BLOOD SPECIMENOrdering Facility: [facility] Address: [address] [place] [address] Performed By: #### 5 7021-8 ####[facility] LABORATORYCLIA [id number] [place] [address] [place] Platelet mean volume (Bld) [Entitic vol] 9.5 fL Normal 9.0-12.7 [facility] Comment on above: Order Comment: Speci men Type: BLOOD SPECIMENOrdering Facility: [facility] Address: [address] [place] [address] Performed By: #### 5 7021-8 ####AD[facility] LABORATORYCLIA [id number] [place] [address] [place] Platelets (Bld) [#/Vol] 256 10*3/uL Normal 150-400 [facility] Comment on above: Order Comment: Speci men Type: BLOOD SPECIMENOrdering Facility: [facility] Address: [address] [place] [address] Performed By: #### 5 7021-8 ####ADK[facility] LABORATORYCLIA [id number] [place], [place] [id number] [place] [address] [place] RBC (Bld) [#/Vol] 3.86 10*6/uL Low 4.20-6.00 [place] Comment on above: Order Comment: Speci men Type: BLOOD SPECIMENOrdering Facility: [facility] Address: [address] [place] [address] Performed By: #### 5 7021-8 ####[facility] LABORATORYCLIA [id number] [address] [place] WBC (Bld) [#/Vol] 5.78 10*3/uL Normal 3.70-11.00 [place] Comment on above: Order Comment: Speci men Type: BLOOD SPECIMENOrdering Facility: [facility] Address: [address] [place] [address] Performed By: #### 5 7021-8 ####[facility] LABORATORYCLIA [id number] [address] [place] CRP SerPl-mCncon 04-26-2024 CRP [Mass/Vol] mg/L Normal <0.9 [facility] Comment on above: Order Comment: Speci men Type: BLOOD SPECIMENOrdering Facility: [facility] Address: [address] [place] [address] Performed By: #### 1 988-5, 48216-9 ####[facility] LABORATORYCLIA [id number] [place] [id number] [place] ESR Westergren method (Bld) [Velocity]on 04-26-2024 ESR (Bld) [Velocity] 27 mm/h High 0-15 [facility] Comment on above: Order Comment: Speci men Type: BLOOD SPECIMENOrdering Facility: [facility] Address: [address] [place] [address] Performed By: #### 4 537-7 ####[facility] LABCLIA [id number] [place] [id number] [place] [facility] PROTEIN ELECTROPHORESIS SERU M (P)on 04-26-2024 Albumin [Mass/Vol] 3.47 g/dL Normal 3.43-5.41 [facility] Comment on above: Order Comment: Speci men Type: BLOOD SPECIMENOrdering Facility: [facility] Address: [address] [place] [address] Performed By: #### L [id number] ####[facility] LABCLIA [id number] [place] [address] [place] Alpha 1 globulin Elph [Mass/Vol] 0.31 g/dL Normal 0.18-0.43 [facility] Comment on above: Order Comment: Speci men Type: BLOOD SPECIMENOrdering Facility: [facility] Address: [address] [place] [address] Performed By: #### L [id number] ####[facility] LABCLIA [id number] [address] STATES [facility] Alpha 2 globulin Elph [Mass/Vol] 0.79 g/dL Normal 0.42-0.98 [facility] Comment on above: Order Comment: Speci men Type: BLOOD SPECIMENOrdering Facility: [facility] Address: [address] [place] [address]21 Performed By: #### L [id number] ####[facility] LABCLIA [id number] [place] [id number] [place] Beta globulin Elph [Mass/Vol] 0.74 g/dL Normal 0.61-1.17 [facility] Comment on above: Order Comment: Speci men Type: BLOOD SPECIMENOrdering Facility: [facility] Address: [address] [place] [address] Performed By: #### L [id number] ####[facility] LABCLIA [id number] [place] [address] [id number] [place] [address] Gamma globulin Elph [Mass/Vol] 0.59 g/dL Normal 0.53-1.51 [facility] Comment on above: Order Comment: Speci men Type: BLOOD SPECIMENOrdering Facility: [facility] Address: [address] [place] [address]683 Performed By: #### L [id number] ####[facility] LABCLIA [id number] [address] M-PROTEIN LOCATION [facility] Comment on above: Order Comment: Speci men Type: BLOOD SPECIMENOrdering Facility: [facility] Address: [address] [place] [address]72 Result Comment: Not Applicable. Performed By: #### L [id number] ####[facility] LABCLIA [id number] [address] Protein Fractions [Interp] No definitive M protein is identified on protein electrophoresis. Normal No definitive M protein is identified on protein electrophore sis. [facility] Comment on above: Order Comment: Speci men Type: BLOOD SPECIMENOrdering Facility: [facility] Address: [address] [place] [address] Performed By: #### L [id number] ####[facility] LABCLIA [id number] [address] Protein.monoclonal Elph [Mass/Vol] 0.00 g/dL Normal <=0.00 [facility] Comment on above: Order Comment: Speci men Type: BLOOD SPECIMENOrdering Facility: [facility] Address: [address] [place] [address] Performed By: #### L [id number] ####[facility] LABCLIA [id number] [address] SPE STAFF REVIEW Reviewed by Sebas Ocampo MD, Ph.D ([id number]) [facility] Comment on above: Order Comment: Speci men Type: BLOOD SPECIMENOrdering Facility: [facility] Address: [address] [place] [address] Performed By: #### L [id number] ####[facility] LABIA [id number] [place] [id number] [facility] Prot [facility] 04-26-2024 Protein [Mass/Vol] 5.9 g/dL Low 6.3-8.0 [facility] Comment on above: Order Comment: Speci men Type: BLOOD SPECIMENOrdering Facility: [facility] Address: [address] [place] [address] Performed By: #### 2 885-2 ####[facility] [id number] [address] [place] CNPNon 02-20-2024 CNPN Normal [facility] 25(OH)D3 [facility] 2023 25-hydroxyvitamin D3 [Mass/Vol] 17.5 ng/mL Low 31.0-80.0 [facility] Comment on above: Order Comment: Speci men Type: BLOOD SPECIMENOrdering Facility: External Submitter Address: , , Performed By: #### 1 989-3 ####[facility] [id number] [address] [place] ALBUMIN/CREATININE RATIO, UR INEon 01-24-2024 Albumin DL <= 20 mg/L (U) [Mass/Vol] mg/dL Normal [facility] Comment on above: Order Comment: Speci men Type: URINE SPECIMENOrdering Facility: External Submitter Address: , , Performed By: #### U ACR ####[facility] LABIA [id number] [address] [place] Albumin/Creatinine (U) [Mass ratio] >4641 High <30 [facility] Comment on above: Order Comment: Speci men Type: URINE SPECIMENOrdering Facility: External Submitter Address: , , Result Comment: Adul t Male and Female Nephrotic Criteria:<30 mg/g is considered normal to mildly esddyhtry01-541 mg/g is considered moderately increased>300 mg/g is considered severely increasedKDIGO. (2013). KDIGO 2012 Clinical Practice Guideline for the Evaluation and Management of Chronic Kidney Disease. Official Journal of the International Society of Nephrology, 3(1), 1-150. Performed By: #### U ACR ####[facility] LABCLIA [id number] [address] Creatinine (U) [Mass/Vol] 94.8 mg/dL Normal 20.0-300.0 [facility] Comment on above: Order Comment: Speci men Type: URINE SPECIMENOrdering Facility: External Submitter Address: , , Performed By: #### U ACR ####[facility] LABCLIA [id number] [address] CBC W Auto Differential pane l (Bld)on 01-24-2024 Basophils (Bld) [#/Vol] 10*3/uL Normal <0.11 [facility] Comment on above: Order Comment: Luz vaughan Type: BLOOD SPECIMENOrdering Facility: External Submitter Address: , , Performed By: #### 5 7021-8 ####[facility] LABORATORYCLIA [id number] [address] Basophils/100 WBC (Bld) 0.3 % Normal [facility] Comment on above: Order Comment: Luz vaughan Type: BLOOD SPECIMENOrdering Facility: External Submitter Address: , , Performed By: #### 5 7021-8 ####[facility] LABORATORYCLIA [id number] [address] Differential cell count method Nom (Bld) Auto Normal [facility] Comment on above: Order Comment: Luz vaughan Type: BLOOD SPECIMENOrdering Facility: External Submitter Address: , , Performed By: #### 5 7021-8 ####[facility] LABORATORYCLIA [id number] [address] [place] [facility] Eosinophils (Bld) [#/Vol] 0.14 10*3/uL Normal <0.46 [facility] Comment on above: Order Comment: Speci men Type: BLOOD SPECIMENOrdering Facility: External Submitter Address: , , Performed By: #### 5 7021-8 ####[facility] LABORATORYCLIA [id number] [address] Eosinophils/100 WBC (Bld) 2.4 % Normal [facility] Comment on above: Order Comment: Speci men Type: BLOOD SPECIMENOrdering Facility: External Submitter Address: , , Performed By: #### 5 7021-8 ####[facility] LABORATORYCLIA [id number] [address] Erythrocyte distribution width (RBC) [Ratio] 14.0 % Normal 11.5-15.0 [facility] Comment on above: Order Comment: Speci men Type: BLOOD SPECIMENOrdering Facility: External Submitter Address: , , Performed By: #### 5 7021-8 ####[facility] LABORATORYCLIA [id number] [address] Hematocrit (Bld) [Volume fraction] 39.2 % Normal 39.0-51.0 [facility] Comment on above: Order Comment: Speci men Type: BLOOD SPECIMENOrdering Facility: External Submitter Address: , , Performed By: #### 5 7021-8 ####[facility] LABORATORYCLIA [id number] [address] Hemoglobin (Bld) [Mass/Vol] 12.6 g/dL Low 13.0-17.0 [facility] Comment on above: Order Comment: Speci men Type: BLOOD SPECIMENOrdering Facility: External Submitter Address: , , Performed By: #### 5 7021-8 ####[facility] LABORATORYCLIA [id number] [address] Immature granulocytes (Bld) [#/Vol] 0.03 10*3/uL Normal <0.10 [facility] Comment on above: Order Comment: Speci men Type: BLOOD SPECIMENOrdering Facility: External Submitter Address: , , Performed By: #### 5 7021-8 ####[facility] LABORATORYCLIA [id number] [address] Immature granulocytes/100 WBC (Bld) 0.5 % Normal [facility] Comment on above: Order Comment: Speci men Type: BLOOD SPECIMENOrdering Facility: External Submitter Address: , , Performed By: #### 5 7021-8 ####[facility] LABORATORYCLIA [id number] [address] Lymphocytes (Bld) [#/Vol] 1.26 10*3/uL Normal 1.00-4.00 [facility] Comment on above: Order Comment: Speci men Type: BLOOD SPECIMENOrdering Facility: External Submitter Address: , , Performed By: #### 5 7021-8 ####[facility] LABORATORYCLIA [id number] [address] Lymphocytes/100 WBC (Bld) 21.2 % Normal [facility] Comment on above: Order Comment: Speci men Type: BLOOD SPECIMENOrdering Facility: External Submitter Address: , , Performed By: #### 5 7021-8 ####[facility] LABORATORYCLIA [id number] [address] MCH (RBC) [Entitic mass] 27.1 pg Normal 26.0-34.0 [facility] Comment on above: Order Comment: Speci men Type: BLOOD SPECIMENOrdering Facility: External Submitter Address: , , Performed By: #### 5 7021-8 ####[facility] LABORATORYCLIA [id number] [address] MCHC (RBC) [Mass/Vol] 32.1 g/dL Normal 30.5-36.0 [facility] Comment on above: Order Comment: Speci men Type: BLOOD SPECIMENOrdering Facility: External Submitter Address: , , Performed By: #### 5 7021-8 ####[facility] LABORATORYCLIA [id number] [address] MCV (RBC) [Entitic vol] 84.3 fL Normal 80.0-100.0 [facility] Comment on above: Order Comment: Speci men Type: BLOOD SPECIMENOrdering Facility: External Submitter Address: , , Performed By: #### 5 7021-8 ####[facility] LABORATORYCLIA [id number] [address] [place] Monocytes (Bld) [#/Vol] 0.51 10*3/uL Normal <0.87 [facility] Comment on above: Order Comment: Speci men Type: BLOOD SPECIMENOrdering Facility: External Submitter Address: , , Performed By: #### 5 7021-8 ####[facility] LABORATORYCLIA [id number] [address] Monocytes/100 WBC (Bld) 8.6 % Normal [facility] Comment on above: Order Comment: Speci men Type: BLOOD SPECIMENOrdering Facility: External Submitter Address: , , Performed By: #### 5 7021-8 ####[facility] LABORATORYCLIA [id number] [address] Neutrophils (Bld) [#/Vol] 3.99 10*3/uL Normal 1.45-7.50 [facility] Comment on above: Order Comment: Speci men Type: BLOOD SPECIMENOrdering Facility: External Submitter Address: , , Performed By: #### 5 7021-8 ####[facility] LABORATORYCLIA [id number] [address] Neutrophils/100 WBC (Bld) 67.0 % Normal [facility] Comment on above: Order Comment: Speci men Type: BLOOD SPECIMENOrdering Facility: External Submitter Address: , , Performed By: #### 5 7021-8 ####[facility] LABORATORYCLIA [id number] [address] Nucleated RBC (Bld) [#/Vol] 10*3/uL Normal <0.01 [facility] Comment on above: Order Comment: Speci men Type: BLOOD SPECIMENOrdering Facility: External Submitter Address: , , Performed By: #### 5 7021-8 ####[facility] LABORATORYCLIA [id number] [address] Nucleated RBC/100 WBC (Bld) [Ratio] 0.0 /100 WBC Normal [facility] Comment on above: Order Comment: Speci men Type: BLOOD SPECIMENOrdering Facility: External Submitter Address: , , Performed By: #### 5 7021-8 ####[facility] LABORATORYCLIA [id number] [address] Platelet mean volume (Bld) [Entitic vol] 8.8 fL Low 9.0-12.7 [facility] Comment on above: Order Comment: Speci men Type: BLOOD SPECIMENOrdering Facility: External Submitter Address: , , Performed By: #### 5 7021-8 ####[facility] LABORATORYCLIA [id number] [address] Platelets (Bld) [#/Vol] 289 10*3/uL Normal 150-400 [facility] Comment on above: Order Comment: Speci men Type: BLOOD SPECIMENOrdering Facility: External Submitter Address: , , Performed By: #### 5 7021-8 ####[facility] LABORATORYCLIA [id number] [address] [place] RBC (Bld) [#/Vol] 4.65 10*6/uL Normal 4.20-6.00 [place] Comment on above: Order Comment: Speci men Type: BLOOD SPECIMENOrdering Facility: External Submitter Address: , , Performed By: #### 5 7021-8 ####[facility] LABORATORYCLIA [id number] [address] WBC (Bld) [#/Vol] 5.95 10*3/uL Normal 3.70-11.00 [place] Comment on above: Order Comment: Speci men Type: BLOOD SPECIMENOrdering Facility: External Submitter Address: , , Performed By: #### 5 7021-8 ####[facility] LABORATORYCLIA [id number] [address] Magnesium SerPl-mCncon 01-23 Magnesium [Mass/Vol] 2.0 mg/dL Normal 1.7-2.3 [facility] Comment on above: Order Comment: Speci men Type: BLOOD SPECIMENOrdering Facility: External Submitter Address: , , Performed By: #### 1 9123-9, , 3083-04 ####[facility] LABORATORYCLIA [id number] [place] [address] [place] PTH-Intact SerPl-ncon 10-2 Parathyrin.intact [Mass/Vol] 79 pg/mL High 15-65 [facility] Comment on above: Order Comment: Speci men Type: BLOOD SPECIMENOrdering Facility: External Submitter Address: , , Performed By: #### 2 731-8 ####[facility] LABCLIA [id number] [place] [address] [address] [place] Renal function 2000 panelon 01-24-2024 Albumin [Mass/Vol] 4.0 g/dL Normal 3.9-4.9 [facility] Comment on above: Order Comment: Speci men Type: BLOOD SPECIMENOrdering Facility: External Submitter Address: , , Performed By: #### 1 9123-9, , 3083-04 ####[facility] LABORATORYCLIA [id number] [address] Anion gap [Moles/Vol] 10 mmol/L Normal 8-15 [facility] Comment on above: Order Comment: Speci men Type: BLOOD SPECIMENOrdering Facility: External Submitter Address: , , Performed By: #### 1 9123-9, , 3083-04 ####[facility] LABORATORYCLIA [id number] [place], [place] [address] [place] [address] Calcium [Mass/Vol] 9.7 mg/dL Normal 8.5-10.2 [facility] Comment on above: Order Comment: Speci men Type: BLOOD SPECIMENOrdering Facility: External Submitter Address: , , Performed By: #### 1 9123-9, 22189-3, 3083-04 ####[facility] LABORATORYCLIA [id number] [address] Chloride [Moles/Vol] 106 mmol/L Normal 98-107 [facility] Comment on above: Order Comment: Speci men Type: BLOOD SPECIMENOrdering Facility: External Submitter Address: , , Performed By: #### 1 9123-9, , 3083-04 ####[facility] LABORATORYCLIA [id number] [address] CO2 [Moles/Vol] 26 mmol/L Normal 22-30 [facility] Comment on above: Order Comment: Luz vaughan Type: BLOOD SPECIMENOrdering Facility: External Submitter Address: , , Performed By: #### 1 9123-9, 32166-4, 3083-04 ####[facility] LABORATORYCLIA [id number] [address] Creatinine [Mass/Vol] 2.63 mg/dL High 0.73-1.22 [facility] Comment on above: Order Comment: Luz vaughan Type: BLOOD SPECIMENOrdering Facility: External Submitter Address: , , Performed By: #### 1 9123-9, 74716-2, 3083-04 ####[facility] LABORATORYCLIA [id number] [address] [address] Creatinine and Glomerular filtration rate.predicted panel (S/P/Bld) 26 mL/min/1.73m??? Low >=60 [facility] Comment on above: Order Comment: [...] actual GFR. Performed By: #### 1 9123-9, 67807-1, 3083-04 ####[facility] LABORATORYCLIA [id number] [address] Glucose [Mass/Vol] 151 mg/dL High 74-99 [facility] Comment on above: Order Comment: Luz vaughan Type: BLOOD SPECIMENOrdering Facility: External Submitter Address: , , Result Comment: The [place] Diabetes Association (ADA) provides guidance for cutoff [...] Standards of Medical Care in Diabetes 2016, [place] [employer]. Diabetes Care. 2016.39(Suppl 1). Performed By: #### 1 9123-9, 06056-3, 3083-04 ####[facility] LABORATORYCLIA [id number] [place] [address] [place] Phosphate [Mass/Vol] 3.9 mg/dL Normal 2.7-4.8 [facility] Comment on above: Order Comment: Luz vaughan Type: BLOOD SPECIMENOrdering Facility: External Submitter Address: , , Performed By: #### 1 91239, , 3083-04 ####[facility] LABORATORYCLIA [id number] [place] [address] [place] Potassium [Moles/Vol] 4.9 mmol/L Normal 3.7-5.1 [facility] Comment on above: Order Comment: Luz vaughan Type: BLOOD SPECIMENOrdering Facility: External Submitter Address: , , Performed By: #### 1 9123-9, 80675-9, 3083-04 ####[facility] LABORATORYCLIA [id number] [place] [address] [place] Sodium [Moles/Vol] 142 mmol/L Normal 136-144 [facility] Comment on above: Order Comment: Luz vaughan Type: BLOOD SPECIMENOrdering Facility: External Submitter Address: , , Performed By: #### 1 9123-9, 65781-8, 3083-04 ####[facility] LABORATORYCLIA [id number] [place] [address] [place] Urea nitrogen [Mass/Vol] 47 mg/dL High 9-24 [facility] Comment on above: Order Comment: Luz vaguhan Type: BLOOD SPECIMENOrdering Facility: External Submitter Address: , , Performed By: #### 1 9123-9, 68019-8, 3084-1 ####[facility] LABORATORYCLIA [id number] [address] [place] URINALYSIS, REFLEX MICROSCOP ICon 01-24-2024 Bilirubin Ql (U) Negative Normal Negative [facility] Comment on above: Order Comment: Speci men Type: URINE SPECIMENOrdering Facility: External Submitter Address: , , Performed By: #### L [id number] ####[facility] LABORATORYCLIA [id number] [address] Clarity (Unsp spec) Clear Normal [facility] [place] Comment on above: Order Comment: Speci men Type: URINE SPECIMENOrdering Facility: External Submitter Address: , , Performed By: #### L [id number] ####[facility] LABORATORYCLIA [id number] [address] Color (U) Yellow Normal Yellow [facility] Comment on above: Order Comment: Speci men Type: URINE SPECIMENOrdering Facility: External Submitter Address: , , Performed By: #### L [id number] ####[facility] LABORATORYCLIA [id number] [address] Glucose Test strip (U) [Mass/Vol] 1+ Abnormal Negative [facility] Comment on above: Order Comment: Speci men Type: URINE SPECIMENOrdering Facility: External Submitter Address: , , Performed By: #### L [id number] ####[facility] LABORATORYCLIA [id number] [address] Granular casts (Urine sed) [#/Area] 1-3 /LPF Abnormal 0 /LPF [facility] Comment on above: Order Comment: Speci men Type: URINE SPECIMENOrdering Facility: External Submitter Address: , , Performed By: #### L [id number] ####[facility] LABORATORYCLIA [id number] [address] Hemoglobin Ql (U) 2+ Abnormal Negative [facility] Comment on above: Order Comment: Speci men Type: URINE SPECIMENOrdering Facility: External Submitter Address: , , Performed By: #### L [id number] ####[facility] LABORATORYCLIA [id number] [address] Ketones Ql (U) Negative Normal Negative [facility] Comment on above: Order Comment: Speci men Type: URINE SPECIMENOrdering Facility: External Submitter Address: , , Performed By: #### L [id number] ####[facility] LABORATORYCLIA [id number] [address] Leukocyte esterase Test strip Ql (U) Negative Normal Negative [facility] Comment on above: Order Comment: Speci men Type: URINE SPECIMENOrdering Facility: External Submitter Address: , , Performed By: #### L [id number] ####[facility] LABORATORYCLIA [id number] [address] Nitrite Ql (U) Negative Normal Negative [facility] Comment on above: Order Comment: Speci men Type: URINE SPECIMENOrdering Facility: External Submitter Address: , , Performed By: #### L [id number] ####[facility] LABORATORYCLIA [id number] [address] pH (U) 6.0 [pH] Normal 5.0-8.0 [facility] Comment on above: Order Comment: Speci men Type: URINE SPECIMENOrdering Facility: External Submitter Address: , , Performed By: #### L [id number] ####[facility] LABORATORYCLIA [id number] [address] Protein (U) [Mass/Vol] 3+ Abnormal Negative [facility] Comment on above: Order Comment: Speci men Type: URINE SPECIMENOrdering Facility: External Submitter Address: , , Performed By: #### L [id number] ####[facility] LABORATORYCLIA [id number] [address] RBC LM.HPF (Urine sed) [#/Area] 3-5 /HPF Abnormal 0-3 /HPF [facility] Comment on above: Order Comment: Speci men Type: URINE SPECIMENOrdering Facility: External Submitter Address: , , Performed By: #### L [id number] ####[facility] LABORATORYCLIA [id number] [address] [place] Specific gravity (U) [Rel density] 1.025 Normal 1.005-1.030 [facility] Comment on above: Order Comment: Speci men Type: URINE SPECIMENOrdering Facility: External Submitter Address: , , Performed By: #### L [id number] ####[facility] LABORATORYCLIA [id number] [address] [place] Urobilinogen Ql (U) 0.2 EU/dL Normal 0.2-1.0 EU/dL [facility] Comment on above: Order Comment: Speci men Type: URINE SPECIMENOrdering Facility: External Submitter Address: , , Performed By: #### L [id number] ####[facility] LABORATORYCLIA [id number] [address] [place] WBC LM.HPF (Urine sed) [#/Area] 0-5 /HPF Normal 0-5 /HPF [facility] Comment on above: Order Comment: Speci men Type: URINE SPECIMENOrdering Facility: External Submitter Address: , , Performed By: #### L [id number] ####[facility] LABORATORYCLIA [id number] [address] [place] Urate SerPl-mCncon Urate [Mass/Vol] 5.6 mg/dL Normal 4.0-8.1 [facility] Comment on above: Order Comment: Speci men Type: BLOOD SPECIMENOrdering Facility: External Submitter Address: , , Performed By: #### 1 9123-9, 17912-4, 3084-1 ####[facility] LABORATORYCLIA [id number] [place] [address] [place] CNPNon 12-22-2023 CNPN [facility] CNPNon 12-18-2023 CNPN [facility] [id number] 10-20-2023 [id number] [facility] CNDSon 10-20-2023 CNDS [facility] NURSING PROGon 10-20-2023 NURSING PROG [facility] SOCIAL WORKon 10-20-2023 SOCIAL WORK Normal [facility] SOCIAL WORK Normal [facility] POTASSIUMon 10-19-2023 Potassium [Moles/Vol] 4.6 mmol/L Normal 3.7-5.1 [facility] Comment on above: Order Comment: Speci men Type: BLOOD SPECIMENOrdering Facility: [facility] Address: [address] [place] [address] Performed By: #### K 1 ####[facility] LABCLIA [id number] [place] [address] [place] SOCIAL WORKon 10-19-2023 SOCIAL WORK Normal [facility] THERAPY NTon 10-19-2023 THERAPY NT Normal [facility] THERAPY NT Normal [facility] THERAPY NT Normal [facility] THERAPY NT Normal [facility] Basic metabolic 2000 panelon 10-18-2023 Anion gap [Moles/Vol] 9 mmol/L Normal 8-15 [facility] Comment on above: Order Comment: Speci men Type: BLOOD SPECIMENOrdering Facility: [facility] Address: [address] [place] [address] Performed By: #### 2 4321-2 ####[facility] LABCLIA [id number] [place] [address] [place] Calcium [Mass/Vol] 8.7 mg/dL Normal 8.5-10.2 [facility] Comment on above: Order Comment: Speci men Type: BLOOD SPECIMENOrdering Facility: [facility] Address: [address] [place] [address] Performed By: #### 2 4321-2 ####[facility] LABCLIA [id number] [place] [address] [place] Chloride [Moles/Vol] 105 mmol/L Normal 98-107 [facility] Comment on above: Order Comment: Speci men Type: BLOOD SPECIMENOrdering Facility: [facility] Address: [address] [place] [address] Performed By: #### 2 4321-2 ####[facility] LABCLIA [id number] [place] [address] [place] CO2 [Moles/Vol] 26 mmol/L Normal 22-30 [facility] Comment on above: Order Comment: Speci clement Type: BLOOD SPECIMENOrdering Facility: [facility] Address: [address] [place] [address] Performed By: #### 2 4321-2 ####[facility] LABCLIA [id number] [place] [address] [place] Creatinine [Mass/Vol] 2.26 mg/dL High 0.73-1.22 [facility] Comment on above: Order Comment: Speci men Type: BLOOD SPECIMENOrdering Facility: [facility] Address: [address] [place] [address] Performed By: #### 2 4321-2 ####[facility] LABCLIA [id number] [place] [address] [facility] Creatinine and Glomerular filtration rate.predicted panel (S/P/Bld) 32 mL/min/1.73m??? Low >=60 [facility] Comment on above: Order Comment: Speci men Type: BLOOD SPECIMENOrdering Facility: [facility] Address: [address] [place] [address] Result Comment: Breanne mated Glomerular Filtration Rate [...] actual GFR. Performed By: #### 2 4321-2 ####[facility] LABCLIA [id number] [place] [address] [place] Glucose [Mass/Vol] 100 mg/dL High 74-99 [facility] Comment on above: Order Comment: Speci men Type: BLOOD SPECIMENOrdering Facility: [facility] Address: [address] [place] [address] Result Comment: The [place] Diabetes Association (ADA) provides guidance for cutoff [...] Standards of Medical Care in Diabetes 2016, [place] [employer]. Diabetes Care. 2016.39(Suppl 1). Performed By: #### 2 4321-2 ####[facility] [employer] [facility] LABCLIA [id number] [place] [address] [place] Potassium [Moles/Vol] 5.8 mmol/L High 3.7-5.1 [facility] Comment on above: Order Comment: Speci men Type: BLOOD SPECIMENOrdering Facility: [facility] Address: [address] [place] [address] Performed By: #### 2 4321-2 ####[facility] [employer] LABCLIA [id number] [place] [address] [place] Sodium [Moles/Vol] 140 mmol/L Normal 136-144 [facility] Comment on above: Order Comment: Speci men Type: BLOOD SPECIMENOrdering Facility: [facility] Address: [address] [place] [address] Performed By: #### 2 4321-2 ####[facility] [employer] LABCLIA [id number] [place] [address] [place] Urea nitrogen [Mass/Vol] 44 mg/dL High 9-24 [facility] Comment on above: Order Comment: Speci men Type: BLOOD SPECIMENOrdering Facility: [facility] Address: [address] [place] [address] Performed By: #### 2 4321-2 ####[facility] LABCLIA [id number] [place] [address] [facility] CBC panel Auto (Bld)on 10-17 Erythrocyte distribution width (RBC) [Ratio] 13.9 % Normal 11.5-15.0 [facility] Comment on above: Order Comment: Speci men Type: BLOOD SPECIMENOrdering Facility: [facility] Address: [address] [place] [address] Performed By: #### 5 8410-2 ####[facility] LABCLIA [id number] [place] [address] [facility] Hematocrit (Bld) [Volume fraction] 28.1 % Low 39.0-51.0 [facility] Comment on above: Order Comment: Speci men Type: BLOOD SPECIMENOrdering Facility: [facility] Address: [address] [place] [address] Performed By: #### 5 8410-2 ####[facility] LABCLIA [id number] [address] Hemoglobin (Bld) [Mass/Vol] 8.7 g/dL Low 13.0-17.0 [facility] Comment on above: Order Comment: Speci men Type: BLOOD SPECIMENOrdering Facility: [facility] Address: [address] [place] [address] Performed By: #### 5 8410-2 ####[facility] LABCLIA [id number] [place] [address] [facility] MCH (RBC) [Entitic mass] 27.4 pg Normal 26.0-34.0 [facility] Comment on above: Order Comment: Speci men Type: BLOOD SPECIMENOrdering Facility: [facility] Address: [address] [place] [address] Performed By: #### 5 8410-2 ####[facility] LABCLIA [id number] [place] [address] [place] MCHC (RBC) [Mass/Vol] 31.0 g/dL Normal 30.5-36.0 [facility] Comment on above: Order Comment: Speci men Type: BLOOD SPECIMENOrdering Facility: [facility] Address: [address] [place] [address] Performed By: #### 5 8410-2 ####[facility] LABCLIA [id number] [place] [address] [place] [facility] MCV (RBC) [Entitic vol] 88.4 fL Normal 80.0-100.0 [facility] Comment on above: Order Comment: Speci men Type: BLOOD SPECIMENOrdering Facility: [facility] Address: [address] [place] [address] Performed By: #### 5 8410-2 ####[facility] LABCLIA [id number] [place] [address] [place] Platelet mean volume (Bld) [Entitic vol] 8.6 fL Low 9.0-12.7 [facility] Comment on above: Order Comment: Speci men Type: BLOOD SPECIMENOrdering Facility: [facility] Address: [address] [place] [address] Performed By: #### 5 8410-2 ####[facility] LABCLIA [id number] [place] [address] [place] Platelets (Bld) [#/Vol] 438 10*3/uL High 150-400 [facility] Comment on above: Order Comment: Speci men Type: BLOOD SPECIMENOrdering Facility: [facility] Address: [address] [place] [address] Performed By: #### 5 8410-2 ####[facility] LABCLIA [id number] [place] [address] [place] RBC (Bld) [#/Vol] 3.18 10*6/uL Low 4.20-6.00 [facility] Comment on above: Order Comment: Speci men Type: BLOOD SPECIMENOrdering Facility: [facility] Address: [address] [place] [address] Performed By: #### 5 8410-2 ####[facility] LABCLIA [id number] [place] [address] [place] WBC (Bld) [#/Vol] 5.65 10*3/uL Normal 3.70-11.00 [facility] Comment on above: Order Comment: Speci men Type: BLOOD SPECIMENOrdering Facility: [facility] Address: [address] [place] [address] Performed By: #### 5 8410-2 ####[facility] LABCLIA [id number] [place] [address] [facility] [place] NURSING PROGon 10-18-2023 NURSING PROG Normal [facility] POTASSIUMon 10-18-2023 Potassium [Moles/Vol] 5.4 mmol/L High 3.7-5.1 [facility] Comment on above: Order Comment: Speci men Type: BLOOD SPECIMENOrdering Facility: [facility] Address: [address] [place] [address] Performed By: #### K 1 ####[facility] LABCLIA [id number] [place] [address] [facility] Potassium [Moles/Vol] 5.5 mmol/L High 3.7-5.1 [facility] Comment on above: Order Comment: Speci men Type: BLOOD SPECIMENOrdering Facility: [facility] Address: [address] [place] [address] Performed By: #### K 1 ####[facility] LABCLIA [id number] [place] [address] [facility] [place] SOCIAL WORKon 10-18-2023 SOCIAL WORK Normal [facility] SOCIAL WORK Normal [facility] SOCIAL WORK Normal [facility] THERAPY NTon 10-18-2023 THERAPY NT Normal [facility] THERAPY NT Normal [facility] CASE MANAGEMon 10-17-2023 CASE MANAGEM Normal [facility] SOCIAL WORKon 10-17-2023 SOCIAL WORK Normal [facility] THERAPY NTon 10-17-2023 THERAPY NT Normal [facility] THERAPY NT Normal [facility] THERAPY NTon 10-16-2023 THERAPY NT Normal [facility] THERAPY NT Normal [facility] THERAPY NT Normal [facility] NURSING PROGon 10-15-2023 NURSING PROG Normal [facility] THERAPY NTon 10-14-2023 THERAPY NT Normal [facility] CASE MANAGEMon 10-13-2023 CASE MANAGEM Normal [facility] NUTRITIONon 10-13-2023 NUTRITION Normal [facility] THERAPY NTon 10-13-2023 THERAPY NT Normal [facility] THERAPY NT Normal [facility] SOCIAL WORKon 10-12-2023 SOCIAL WORK Normal [facility] THERAPY NTon 10-12-2023 THERAPY NT Normal [facility] THERAPY NT Normal [facility] NURSING PROGon 10-11-2023 NURSING PROG Normal [facility] THERAPY NTon 10-11-2023 THERAPY NT Normal [facility] THERAPY NT Normal [facility] CASE MGT INIT ASSESon 2023 CASE MGT INIT ASSES Normal [facility] NURSING PROGon 10-10-2023 NURSING PROG Normal [facility] NURSING PROG Normal [facility] SOCIAL WORKon 10-10-2023 SOCIAL WORK Normal [facility] THERAPY NTon 10-10-2023 THERAPY NT Normal [facility] THERAPY NT Normal [facility] Basic metabolic 2000 panelon 10-09-2023 Anion gap [Moles/Vol] 12 mmol/L Normal 8-15 [facility] Comment on above: Order Comment: Speci men Type: BLOOD SPECIMENOrdering Facility: [facility] Address: [address] [place] [address] Performed By: #### 2 4321-2, 2276-4, 02386-2, 2132-9, 2284-8 ####[facility] LABORATORYCLIA [id number] [place] [address] [place] Calcium [Mass/Vol] 8.7 mg/dL Normal 8.5-10.2 [facility] Comment on above: Order Comment: Speci men Type: BLOOD SPECIMENOrdering Facility: [facility] Address: [address] [place] [address] Performed By: #### 2 4321-2, 2276-4, 04641-0, 2131-9, 2283-8 ####[facility] LABORATORYCLIA [id number] [place] [address] [place] Chloride [Moles/Vol] 103 mmol/L Normal 98-107 [facility] Comment on above: Order Comment: Speci men Type: BLOOD SPECIMENOrdering Facility: [facility] Address: [address] [place], [place] [address] Performed By: #### 2 4321-2, 6-4, 17638-0, 2131-9, 2283-8 ####[facility] LABORATORYCLIA [id number] [place] [address] [place] CO2 [Moles/Vol] 26 mmol/L Normal 22-30 [facility] Comment on above: Order Comment: Speci men Type: BLOOD SPECIMENOrdering Facility: [facility] Address: [address] [place], [place] [address] Performed By: #### 2 4321-2, 2276-4, 91247-5, 2131-9, 2283-8 ####[facility] LABORATORYCLIA [id number] [place] [address] [place] Creatinine [Mass/Vol] 2.35 mg/dL High 0.73-1.22 [facility] Comment on above: Order Comment: Speci men Type: BLOOD SPECIMENOrdering Facility: [facility] Address: [address] [place] [address] Performed By: #### 2 4321-2, 2276-4, 77896-2, 2131-9, 2283-8 ####[facility] LABORATORYCLIA [id number] [place] [address] [facility] [place] Creatinine and Glomerular filtration rate.predicted panel (S/P/Bld) 30 mL/min/1.73m??? Low >=60 [facility] Comment on above: Order Comment: Speci men Type: BLOOD SPECIMENOrdering Facility: [facility] Address: [address] [place] [address] Result Comment: Breanne mated Glomerular Filtration Rate [...] GFR. Performed By: #### 2 4321-2, 6-4, 43376-2, 2131-12, 2283-11 ####[facility] LABORATORYCLIA [id number] [place] [address] [place] Glucose [Mass/Vol] 149 mg/dL High 74-99 [facility] Comment on above: Order Comment: Luz vaughan Type: BLOOD SPECIMENOrdering Facility: [facility] Address: [address] [place] [address] Result Comment: The [place] Diabetes Association (ADA) provides guidance for cutoff [...] Standards of Medical Care in Diabetes 2016, [place] [employer]. Diabetes Care. 2016.39(Suppl 1). Performed By: #### 2 4321-2, 6-4, 62124-4, 2131-12, 2283-11 ####[facility] LABORATORYCLIA [id number] [place] [address] [place] Potassium [Moles/Vol] 5.4 mmol/L High 3.7-5.1 [facility] Comment on above: Order Comment: Luz vaughan Type: BLOOD SPECIMENOrdering Facility: [facility] Address: [address] [place], [place] [address] Performed By: #### 2 4321-2, 6-4, 25217-1, 2131-12, 2283-11 ####[facility] LABORATORYCLIA [id number] [place] [address] [place] Sodium [Moles/Vol] 141 mmol/L Normal 136-144 [facility] Comment on above: Order Comment: Speci men Type: BLOOD SPECIMENOrdering Facility: [facility] Address: [address] [place] [address] Performed By: #### 2 4321-2, 2275-4, 62072-2, 9, 2283-11 ####[facility] LABORATORYCLIA [id number] [place] [address] [place] Urea nitrogen [Mass/Vol] 42 mg/dL High 9- [facility] Comment on above: Order Comment: Speci men Type: BLOOD SPECIMENOrdering Facility: [facility] Address: [address] [place] [address] Performed By: #### 2 4321-2, 2275-4, 80358-2, 2131-12, 2283-11 ####[facility] LABORATORYCLIA [id number] [place] [address] [place] CASE MANAGEMon 10-09-2023 CASE MANAGEM Normal [facility] CBC panel Auto (Bld)on 10-08 Erythrocyte distribution width (RBC) [Ratio] 13.5 % Normal 11.5-15.0 [facility] Comment on above: Order Comment: Speci men Type: BLOOD SPECIMENOrdering Facility: [facility] Address: [address] [place], [place] [address] Performed By: #### 5 8410-2 ####[facility] LABCLIA [id number] [place] [address] [place] Hematocrit (Bld) [Volume fraction] 30.2 % Low 39.0-51.0 [facility] Comment on above: Order Comment: Speci men Type: BLOOD SPECIMENOrdering Facility: [facility] Address: [address] [place] [address] Performed By: #### 5 8410-2 ####[facility] LABCLIA [id number] [place] [address] [facility] Hemoglobin (Bld) [Mass/Vol] 9.3 g/dL Low 13.0-17.0 [facility] Comment on above: Order Comment: Speci men Type: BLOOD SPECIMENOrdering Facility: [facility] Address: [address] [place] [address] Performed By: #### 5 8410-2 ####[facility] LABCLIA [id number] [place] [address] [facility] MCH (RBC) [Entitic mass] 27.4 pg Normal 26.0-34.0 [facility] Comment on above: Order Comment: Speci men Type: BLOOD SPECIMENOrdering Facility: [facility] Address: [address] [place] [address] Performed By: #### 5 8410-2 ####[facility] LABCLIA [id number] [place], [place] [id number] [place] [address] MCHC (RBC) [Mass/Vol] 30.8 g/dL Normal 30.5-36.0 [facility] Comment on above: Order Comment: Speci men Type: BLOOD SPECIMENOrdering Facility: [facility] Address: [address] [place] [address] Performed By: #### 5 8410-2 ####SELECT [facility] LABCLIA [id number] [place] [address] [place] [facility] MCV (RBC) [Entitic vol] 89.1 fL Normal 80.0-100.0 [facility] Comment on above: Order Comment: Speci men Type: BLOOD SPECIMENOrdering Facility: [facility] Address: [address] [place] [address] Performed By: #### 5 8410-2 ####[facility] LABCL[facility] [id number] [place] [address] [facility] Platelet mean volume (Bld) [Entitic vol] 8.9 fL Low 9.0-12.7 [facility] Comment on above: Order Comment: Speci men Type: BLOOD SPECIMENOrdering Facility: [facility] Address: [address] [place] [address] Performed By: #### 5 8410-2 ####[facility] LABCLIA [id number] [place] [address] [facility] Platelets (Bld) [#/Vol] 315 10*3/uL Normal 150-400 [facility] Comment on above: Order Comment: Speci men Type: BLOOD SPECIMENOrdering Facility: [facility] Address: [address] [place] [address] Performed By: #### 5 8410-2 ####[facility] LABCLIA [id number] [place] [address] [place] [facility] RBC (Bld) [#/Vol] 3.39 10*6/uL Low 4.20-6.00 [facility] Comment on above: Order Comment: Speci men Type: BLOOD SPECIMENOrdering Facility: [facility] Address: [address] [place] [address] Performed By: #### 5 8410-2 ####[facility] LABCLIA [id number] [place] [address] [facility] WBC (Bld) [#/Vol] 7.71 10*3/uL Normal 3.70-11.00 [facility] Comment on above: Order Comment: Speci men Type: BLOOD SPECIMENOrdering Facility: [facility] Address: [address] [place] [address] Performed By: #### 5 8410-2 ####[facility] LABCLIA [id number] [place] [address] [facility] Ferritin SerPl-mCncon 2023 Ferritin [Mass/Vol] 712.0 ng/mL High 30.3-565.7 [facility] Comment on above: Order Comment: Speci men Type: BLOOD SPECIMENOrdering Facility: [facility] Address: [address] [place] [address] [place] [address] Performed By: #### 2 4321-2, 6-4, 34690-9, 9, 8 ####[facility] LABORATORYCLIA [id number] [place], [place] [address] [place] [address] [facility] Folate SerPl-ncon 10-09-19 24 Folate [Mass/Vol] 7.0 ng/mL Normal >4.7 [facility] Comment on above: Order Comment: Speci men Type: BLOOD SPECIMENOrdering Facility: [facility] Address: [address] [place], [place] [address] Performed By: #### 2 4321-2, 6-4, 34657-0, 2131-12, 2283-11 ####[facility] LABORATORYCLIA [id number] [address] [place] Iron and Iron binding capaci panelon 10-09-2023 Iron [Mass/Vol] 23 ug/dL Low 41-186 [facility] Comment on above: Order Comment: Speci men Type: BLOOD SPECIMENOrdering Facility: [facility] Address: [address] [place] [address] Performed By: #### 2 4321-2, 6-4, 04021-2, 2131-12, 2283-11 ####[facility] LABORATORYCLIA [id number] [address] [place] Iron binding capacity [Mass/Vol] 165 ug/dL Low 232-386 [facility] Comment on above: Order Comment: Speci men Type: BLOOD SPECIMENOrdering Facility: [facility] Address: [address] [place] [address] Performed By: #### 2 4321-2, 6-4, 73490-3, 2131-12, 2283-11 ####[facility] LABORATORYCLIA [id number] [address] STATES [facility] Iron saturation [Mass fraction] 13.9 % Low 15.0-57.0 [facility] Comment on above: Order Comment: Speci men Type: BLOOD SPECIMENOrdering Facility: [facility] Address: [address] [place] [address] Performed By: #### 2 4321-2, 6-4, 32609-6, 2131-12, 2283-11 ####[facility] LABORATORYCLIA [id number] [place] [address] [place] SOCIAL WORKon 10-09-2023 SOCIAL WORK Normal [facility] THERAPY NTon 10-09-2023 THERAPY NT Normal [facility] THERAPY NT Normal [facility] THERAPY NT Normal [facility] Vit B12 SerPl-mCncon 024 Cobalamin (Vitamin B12) [Mass/Vol] 574 pg/mL Normal 232-1245 [facility] Comment on above: Order Comment: Speci men Type: BLOOD SPECIMENOrdering Facility: [facility] Address: [address] [place], [place] [address] Performed By: #### 2 4321-2, 2275-4, 77755-8, 2131-12, 2283-11 ####[facility] LABORATORYCLIA [id number] [place] [address] [place] THERAPY NTon 10-08-2023 THERAPY NT Normal [facility] THERAPY NTon 10-07-2023 THERAPY NT Normal [facility] Basic metabolic 2000 panelon 10-06-2023 Anion gap [Moles/Vol] 10 mmol/L Normal 8-15 [facility] Comment on above: Order Comment: Speci men Type: BLOOD SPECIMENOrdering Facility: [facility] Address: [address] [place] [address] Performed By: #### 2 4321-2 ####[facility] LABCLIA [id number] [place] [address] [place] Calcium [Mass/Vol] 8.9 mg/dL Normal 8.5-10.2 [facility] Comment on above: Order Comment: Speci men Type: BLOOD SPECIMENOrdering Facility: [facility] Address: [address] [place] [address] Performed By: #### 2 4321-2 ####[facility] LABCLIA [id number] [place] [address] [place] Chloride [Moles/Vol] 104 mmol/L Normal 98-107 [facility] Comment on above: Order Comment: Speci men Type: BLOOD SPECIMENOrdering Facility: [facility] Address: [address] [place] [address] Performed By: #### 2 4321-2 ####[facility] LABCLIA [id number] [place] [address] [place] CO2 [Moles/Vol] 27 mmol/L Normal 22-30 [facility] Comment on above: Order Comment: Speci men Type: BLOOD SPECIMENOrdering Facility: [facility] Address: [address] [place] [address] Performed By: #### 2 4321-2 ####[facility] LABCLIA [id number] [place] [address] [place] Creatinine [Mass/Vol] 2.00 mg/dL High 0.73-1.22 [facility] Comment on above: Order Comment: Speci men Type: BLOOD SPECIMENOrdering Facility: [facility] Address: [address] [place] [address] Performed By: #### 2 4321-2 ####[facility] LABCLIA [id number] [place] [address] [facility] Creatinine and Glomerular filtration rate.predicted panel (S/P/Bld) 37 mL/min/1.73m??? Low >=60 [facility] Comment on above: Order Comment: Speci men Type: BLOOD SPECIMENOrdering Facility: [facility] Address: [address] [place] [address] Result Comment: Breanne mated Glomerular Filtration Rate [...] GFR. Performed By: #### 2 4321-2 ####[facility] [employer] LABCLIA [id number] [place] [address] [place] Glucose [Mass/Vol] 180 mg/dL High 74-99 [facility] Comment on above: Order Comment: Luz clement Type: BLOOD SPECIMENOrdering Facility: [facility] Address: [address] [place] [address] Result Comment: The [place] Diabetes Association (ADA) provides guidance for cutoff [...] Standards of Medical Care in Diabetes 2016, [place] Diabetes Association. Diabetes Care. 2016.39(Suppl 1). Performed By: #### 2 4321-2 ####[facility] [employer] LABCLIA [id number] [place] [address] [place] Potassium [Moles/Vol] 4.5 mmol/L Normal 3.7-5.1 [facility] Comment on above: Order Comment: Luz clement Type: BLOOD SPECIMENOrdering Facility: [facility] Address: [address] [place] [address] Performed By: #### 2 4321-2 ####[facility] LABCLIA [id number] [place] [address] [place] Sodium [Moles/Vol] 141 mmol/L Normal 136-144 [facility] Comment on above: Order Comment: Luz clement Type: BLOOD SPECIMENOrdering Facility: [facility] Address: [address] [place] [address] Performed By: #### 2 4321-2 ####[facility] LABCLIA [id number] [place] [address] [place] Urea nitrogen [Mass/Vol] 32 mg/dL High 9-24 [facility] Comment on above: Order Comment: Speci men Type: BLOOD SPECIMENOrdering Facility: [facility] Address: [address] [place] [address] Performed By: #### 2 4321-2 ####[facility] LABCLIA [id number] [facility] [address] [facility] CBC panel Auto (Bld)on 10-05 Erythrocyte distribution width (RBC) [Ratio] 13.5 % Normal 11.5-15.0 [facility] Comment on above: Order Comment: Speci men Type: BLOOD SPECIMENOrdering Facility: [facility] Address: [address] [place] [address] Performed By: #### 5 8410-2 ####[facility] LABCLIA [id number] [place] [address] [facility] Hematocrit (Bld) [Volume fraction] 31.5 % Low 39.0-51.0 [facility] Comment on above: Order Comment: Speci men Type: BLOOD SPECIMENOrdering Facility: [facility] Address: [address] [place] [address] Performed By: #### 5 8410-2 ####[facility] LABCLIA [id number] [place] [address] [facility] Hemoglobin (Bld) [Mass/Vol] 9.9 g/dL Low 13.0-17.0 [facility] Comment on above: Order Comment: Speci men Type: BLOOD SPECIMENOrdering Facility: [facility] Address: [address] [place] [address] Performed By: #### 5 8410-2 ####[facility] LABCLIA [id number] [facility] [address] [place] MCH (RBC) [Entitic mass] 27.3 pg Normal 26.0-34.0 [facility] Comment on above: Order Comment: Speci men Type: BLOOD SPECIMENOrdering Facility: [facility] Address: [address] [place] [address] Performed By: #### 5 8410-2 ####[facility] [place] LABCLIA [id number] [place] [address] [place] [facility] MCHC (RBC) [Mass/Vol] 31.4 g/dL Normal 30.5-36.0 [facility] Comment on above: Order Comment: Speci men Type: BLOOD SPECIMENOrdering Facility: [facility] Address: [address] [place] [address] Performed By: #### 5 8410-2 ####[facility] LABCL[facility] [id number] [place] [address] [place] MCV (RBC) [Entitic vol] 86.8 fL Normal 80.0-100.0 [facility] Comment on above: Order Comment: Speci men Type: BLOOD SPECIMENOrdering Facility: [facility] Address: [address] [place] [address] Performed By: #### 5 8410-2 ####[facility] LABCLIA [id number] [place] [address] [place] Platelet mean volume (Bld) [Entitic vol] 8.4 fL Low 9.0-12.7 [facility] Comment on above: Order Comment: Speci men Type: BLOOD SPECIMENOrdering Facility: [facility] Address: [address] [place] [address] Performed By: #### 5 8410-2 ####[facility] LABCLIA [id number] [place] [address] [place] Platelets (Bld) [#/Vol] 345 10*3/uL Normal 150-400 [facility] Comment on above: Order Comment: Speci men Type: BLOOD SPECIMENOrdering Facility: [facility] Address: [address] [place] [address] Performed By: #### 5 8410-2 ####[facility] LABCLIA [id number] [place] [address] [place] RBC (Bld) [#/Vol] 3.63 10*6/uL Low 4.20-6.00 [facility] Comment on above: Order Comment: Luz vaughan Type: BLOOD SPECIMENOrdering Facility: [facility] Address: [address] [place] [address] Performed By: #### 5 8410-2 ####[facility] LABCLIA [id number] [place] [id number] [facility] WBC (Bld) [#/Vol] 9.66 10*3/uL Normal 3.70-11.00 [facility] Comment on above: Order Comment: Lzu vaughan Type: BLOOD SPECIMENOrdering Facility: [facility] Address: [address] [place] [address] Performed By: #### 5 8410-2 ####[facility] LABIA [id number] [place] [id number] [facility] HbA1c (Bld)on 10-06-2023 Average glucose Estimated from glycated hemoglobin (Bld) [Mass/Vol] 126 mg/dL Normal [facility] Comment on above: Order Comment: Luz vaughan Type: BLOOD SPECIMENOrdering Facility: [facility] Address: [address] [place] [address] Result Comment: eAG: (Estimated average glucose) is a calculated value from HgbA1c and is hospital sales representative of the average blood glucose level in the last 2-3 month period. Performed By: #### 5 5454-3 ####[facility] LABCLIA [id number] [facility] [address] [place] HbA1c (Bld) [Mass fraction] 6.0 % High 4.3-5.6 [facility] Comment on above: Order Comment: Luz vaughan Type: BLOOD SPECIMENOrdering Facility: [facility] Address: [address] [place] [address] Result Comment: [place] Diabetes Association guidelines indicate that patients with HgbA1c in the range 5.7-6.4% are at increased risk for development of diabetes, and intervention by lifestyle modification may be beneficial. HgbA1c greater or equal to 6.5% is considered diagnostic of diabetes. Performed By: #### 5 5454-3 ####[facility] LABCLIA [id number] [place] [address] [address] [place] NUTRITIONon 10-06-2023 NUTRITION Normal [facility] THERAPY NTon 10-06-2023 THERAPY NT Normal [facility] THERAPY NT Normal [facility] HISTORY PHYSICALon HISTORY PHYSICAL Normal [facility] THERAPY NTon 10-04-2023 THERAPY NT Normal [facility] CNPNon 08-01-2023 CNPN Normal [facility] CNOVon 07-12-2023 CNOV Normal [facility] UA DIP, URINE (POC)on 2023 BILIRUBIN UA (POCT) Negative Negative [facility] CLARITY UA (POCT) Clear [facility] COLOR UA (POCT) Yellow [facility] GLUCOSE UA (POCT) Negative Negative mg/dL [facility] Hemoglobin Ql (U) Trace-intact Abnormal Negative [facility] KETONE UA (POCT) Negative Negative mg/dL [facility] LEUKOCYTES UA (POCT) Negative Negative [facility] NITRITE UA (POCT) Negative Negative [facility] PH UA (POCT) 5.5 4.5 - 8.0 [facility] Protein Ql (U) >=300 Abnormal Negative mg/dL [facility] SPECIFIC GRAVITY UA (POCT) >=1.030 1.005 - 1.030 [facility] UROBILINOGEN UA (POCT) 0.2 E.U./dL Normal E.U./dL [facility] Basic metabolic 2000 panelon 06-13-2023 Anion gap [Moles/Vol] 10 mmol/L Normal 9-18 [facility] Comment on above: Order Comment: Speci men Type: BLOOD SPECIMENOrdering Facility: [facility] Address: [address] [place] [address] Performed By: #### 2 4321-2 ####[facility] LABCLIA [id number] [facility] [place] [place] [address] [place] Calcium [Mass/Vol] 8.6 mg/dL Normal 8.5-10.2 [facility] Comment on above: Order Comment: Speci men Type: BLOOD SPECIMENOrdering Facility: [facility] Address: [address] [place] [address] Performed By: #### 2 4321-2 ####[facility] LABCLIA [id number] [place] [address] [place] Chloride [Moles/Vol] 105 mmol/L Normal 97-105 [facility] Comment on above: Order Comment: Speci men Type: BLOOD SPECIMENOrdering Facility: [facility] Address: [address] [place] [address] Performed By: #### 2 4321-2 ####[facility] LABCLIA [id number] [place] [address] [place] CO2 [Moles/Vol] 26 mmol/L Normal 22-30 [facility] Comment on above: Order Comment: Speci men Type: BLOOD SPECIMENOrdering Facility: [facility] Address: [address] [place] [address] Performed By: #### 2 4321-2 ####[facility] LABCLIA [id number] [place] [address] [place] Creatinine [Mass/Vol] 2.17 mg/dL High 0.73-1.22 [facility] Comment on above: Order Comment: Speci men Type: BLOOD SPECIMENOrdering Facility: [facility] Address: [address] [place] [address] Performed By: #### 2 4321-2 ####[facility] LABCLIA [id number] [place] [address] [facility] Creatinine and Glomerular filtration rate.predicted panel (S/P/Bld) 33 mL/min/1.73m??? Low >=60 [facility] Comment on above: Order Comment: Speci men Type: BLOOD SPECIMENOrdering Facility: [facility] Address: [address] [place], [place] [address] Result Comment: Breanne mated Glomerular Filtration Rate [...] GFR. Performed By: #### 2 4321-2 ####[facility] [employer] LABCLIA [id number] [place] [address] [place] Glucose [Mass/Vol] 158 mg/dL High 74-99 [facility] Comment on above: Order Comment: Luz vaughan Type: BLOOD SPECIMENOrdering Facility: [facility] Address: [facility] [place] [address] Result Comment: The [place] Diabetes Association (ADA) provides guidance for cutoff [...] Standards of Medical Care in Diabetes 2016, [place] Diabetes Association. Diabetes Care. 2016.39(Suppl 1). Performed By: #### 2 4321-2 ####[facility] LABCLIA [id number] [place] [address] [place] Potassium [Moles/Vol] 4.7 mmol/L Normal 3.7-5.1 [facility] Comment on above: Order Comment: Luz vaughan Type: BLOOD SPECIMENOrdering Facility: [facility] Address: [address] [place] [id number] Performed By: #### 2 4321-2 ####[facility] LABCLIA [id number] [place] [address] [place] Sodium [Moles/Vol] 141 mmol/L Normal 136-144 [facility] Comment on above: Order Comment: Speci men Type: BLOOD SPECIMENOrdering Facility: [facility] Address: [address] [place], [place] [address] Performed By: #### 2 4321-2 ####[facility] LABCLIA [id number] [facility] [address] [place] Urea nitrogen [Mass/Vol] 46 mg/dL High 9-24 [facility] Comment on above: Order Comment: Speci men Type: BLOOD SPECIMENOrdering Facility: [facility] Address: [address] [place] [address] Performed By: #### 2 4321-2 ####[facility] LABCLIA [id number] [place] [address] [place] CNDSon 06-13-2023 CNDS Normal [facility] Albumin SerPl-mCncon 024 Albumin [Mass/Vol] 3.0 g/dL Low 3.9-4.9 [facility] Comment on above: Order Comment: Speci men Type: BLOOD SPECIMENOrdering Facility: [facility] Address: [address] [place] [address] Performed By: #### 1 751-7, 31048-6, 2777-1 ####[facility] LABCLIA [id number] [place] [address] [place] Basic metabolic 2000 panelon 06-12-2023 Anion gap [Moles/Vol] 9 mmol/L Normal 9-18 [facility] Comment on above: Order Comment: Speci men Type: BLOOD SPECIMENOrdering Facility: [facility] Address: [address] [place] [address] Performed By: #### 1 751-7, 81370-8, 2777-1 ####[facility] LABCLIA [id number] [facility] [place] [address] [place] Calcium [Mass/Vol] 8.9 mg/dL Normal 8.5-10.2 [facility] Comment on above: Order Comment: Speci men Type: BLOOD SPECIMENOrdering Facility: [facility] Address: [address] [place] [address] Performed By: #### 1 751-7, 84790-6, 2776- ####[facility] LABCLIA [id number] [facility] [place] [address] [place] Chloride [Moles/Vol] 107 mmol/L High 97-105 [facility] Comment on above: Order Comment: Speci men Type: BLOOD SPECIMENOrdering Facility: [facility] Address: [address] [place] [address] Performed By: #### 1 751-7, 99880-1, 2776-04 ####[facility] LABCLIA [id number] [place] [address] [place] CO2 [Moles/Vol] 28 mmol/L Normal 22-30 [facility] Comment on above: Order Comment: Speci men Type: BLOOD SPECIMENOrdering Facility: [facility] Address: [address] [place] [address] Performed By: #### 1 751-7, 75859-6, 2776-04 ####[facility] LABCLIA [id number] [place] [address] [place] Creatinine [Mass/Vol] 2.34 mg/dL High 0.73-1.22 [facility] Comment on above: Order Comment: Speci men Type: BLOOD SPECIMENOrdering Facility: [facility] Address: [address] [place] [address] Performed By: #### 1 751-7, 14995-1, 2776- ####[facility] LABCLIA [id number] [place] [address] [facility] Creatinine and Glomerular filtration rate.predicted panel (S/P/Bld) 30 mL/min/1.73m??? Low >=60 [facility] Comment on above: Order Comment: Speci men Type: BLOOD SPECIMENOrdering Facility: [facility] Address: [address] [place] [address] Result Comment: Breanne mated Glomerular Filtration Rate [...] actual GFR. Performed By: #### 1 751-7, 21399-5, 2776- ####[facility] [employer] LABIA [id number] [place] [address] [place] Glucose [Mass/Vol] 148 mg/dL High 74-99 [facility] Comment on above: Order Comment: Luz vaughan Type: BLOOD SPECIMENOrdering Facility: [facility] Address: [address] [place] [address] Result Comment: The [place] Diabetes Association (ADA) provides guidance for cutoff [...] Standards of Medical Care in Diabetes 2016, [place] Diabetes Association. Diabetes Care. 2016.39(Suppl 1). Performed By: #### 1 751-7, 81747-4, 2776-04 ####[facility] [employer] LABIA [id number] [place] [address] [place] Potassium [Moles/Vol] 5.6 mmol/L High 3.7-5.1 [facility] Comment on above: Order Comment: Luz vaughan Type: BLOOD SPECIMENOrdering Facility: [facility] Address: [address] [place] [address] Performed By: #### 1 751-7, 72618-9, 2777- ####[facility] LABCLIA [id number] [facility] [address] [place] Sodium [Moles/Vol] 144 mmol/L Normal 136-144 [facility] Comment on above: Order Comment: Speci men Type: BLOOD SPECIMENOrdering Facility: [facility] Address: [address] [place] [address] Performed By: #### 1 751-7, 71948-3, 2777- ####[facility] LABCLIA [id number] [place] [address] [place] Urea nitrogen [Mass/Vol] 47 mg/dL High 9-24 [facility] Comment on above: Order Comment: Speci men Type: BLOOD SPECIMENOrdering Facility: [facility] Address: [address] [place] [address] Performed By: #### 1 751-7, 07647-1, 27710-01 ####[facility] LABCLIA [id number] [place] [address] [place] CASE MANAGEMon 06-12-2023 CASE MANAGEM Normal [facility] HISTORY PHYSICALon HISTORY PHYSICAL Normal [facility] POTASSIUM BLDon 06-12-2023 Potassium [Moles/Vol] 4.5 mmol/L Normal 3.7-5.1 [facility] Comment on above: Order Comment: Speci men Type: BLOOD SPECIMENOrdering Facility: [facility] Address: [address] [place] [address] Performed By: #### K 1 ####[facility] LABCLIA [id number] [place] [address] [place] Potassium [Moles/Vol] 5.8 mmol/L High 3.7-5.1 [facility] Comment on above: Order Comment: Speci men Type: BLOOD SPECIMENOrdering Facility: [facility] Address: [address] [place] [address] Performed By: #### K 1 ####[facility] [place] LABCLIA [id number] [place] [address] [facility] [place] Phosphate SerPl-mCncon 06-11 Phosphate [Mass/Vol] 4.6 mg/dL Normal 2.7-4.8 [facility] Comment on above: Order Comment: Speci men Type: BLOOD SPECIMENOrdering Facility: [facility] Address: [address] [place] [address] Performed By: #### 1 751-7, 02235-5, 2777-1 ####[facility] [place] LABCLIA [id number] [place] [address] [facility] THERAPY NTon 06-12-2023 THERAPY NT Normal [facility] THERAPY NT Normal [facility] Basic metabolic 2000 panelon 06-11-2023 Anion gap [Moles/Vol] 8 mmol/L Low 9-18 [facility] Comment on above: Order Comment: Speci men Type: BLOOD SPECIMENOrdering Facility: [facility] Address: [address] [place] [address] Performed By: #### 2 4321-2 ####[facility] LABCLIA [id number] [place] [address] [place] Calcium [Mass/Vol] 8.7 mg/dL Normal 8.5-10.2 [facility] Comment on above: Order Comment: Speci men Type: BLOOD SPECIMENOrdering Facility: [facility] Address: [address] [place] [address] Performed By: #### 2 4321-2 ####[facility] LABCLIA [id number] [place] [address] [place] Chloride [Moles/Vol] 106 mmol/L High 97-105 [facility] Comment on above: Order Comment: Speci men Type: BLOOD SPECIMENOrdering Facility: [facility] Address: [address] [place] [address] Performed By: #### 2 4321-2 ####[facility] [place] LABCLIA [id number] [place] [address] [place] CO2 [Moles/Vol] 28 mmol/L Normal 22-30 [facility] Comment on above: Order Comment: Speci men Type: BLOOD SPECIMENOrdering Facility: [facility] Address: [address] [place] [address] Performed By: #### 2 4321-2 ####[facility] LABCLIA [id number] [place] [address] [place] Creatinine [Mass/Vol] 2.24 mg/dL High 0.73-1.22 [facility] Comment on above: Order Comment: Speci men Type: BLOOD SPECIMENOrdering Facility: [facility] Address: [address] [place] [address] Performed By: #### 2 4321-2 ####[facility] LABCLIA [id number] [place] [address] [facility] Creatinine and Glomerular filtration rate.predicted panel (S/P/Bld) 32 mL/min/1.73m??? Low >=60 [facility] Comment on above: Order Comment: Speci men Type: BLOOD SPECIMENOrdering Facility: [facility] Address: [address] [place] [address] Result Comment: Breanne mated Glomerular Filtration Rate [...] GFR. Performed By: #### 2 4321-2 ####[facility] [employer] LABCLIA [id number] [place] [address] [place] Glucose [Mass/Vol] 126 mg/dL High 74-99 [facility] Comment on above: Order Comment: Speci men Type: BLOOD SPECIMENOrdering Facility: [facility] Address: [address] [place] [address] Result Comment: The [place] Diabetes Association (ADA) provides guidance for cutoff [...] Standards of Medical Care in Diabetes 2016, [place] [employer]. Diabetes Care. 2016.39(Suppl 1). Performed By: #### 2 4321-2 ####[facility] [employer] LABCLIA [id number] [place] [address] [place] Potassium [Moles/Vol] 4.9 mmol/L Normal 3.7-5.1 [facility] Comment on above: Order Comment: Speci men Type: BLOOD SPECIMENOrdering Facility: [facility] Address: [address] [place] [address] Performed By: #### 2 4321-2 ####[facility] [employer] LABCLIA [id number] [place] [id number] [place] Sodium [Moles/Vol] 142 mmol/L Normal 136-144 [facility] Comment on above: Order Comment: Brooksi men Type: BLOOD SPECIMENOrdering Facility: [facility] Address: [address] [place] [address] Performed By: #### 2 4321-2 ####[facility] [employer] LABCLIA [id number] [place] [address] [place] Urea nitrogen [Mass/Vol] 45 mg/dL High 9-24 [facility] Comment on above: Order Comment: Brooksi men Type: BLOOD SPECIMENOrdering Facility: [facility] Address: [address] [place] [address] Performed By: #### 2 4321-2 ####[facility] [place] LABCLIA [id number] [place] [address] [place] CNDSon 06-11-2023 CNDS Normal [facility] NURSING PROGon 06-10-2023 NURSING PROG Normal [facility] NURSING PROG Normal [facility] Basic metabolic 2000 panelon 06-09-2023 Anion gap [Moles/Vol] 9 mmol/L Normal 9-18 [facility] Comment on above: Order Comment: Speci men Type: BLOOD SPECIMENOrdering Facility: [facility] Address: [address] [place] [address] Performed By: #### 2 4321-2 ####[facility] [place] LABCLIA [id number] [facility] [place] [address] [place] Calcium [Mass/Vol] 8.7 mg/dL Normal 8.5-10.2 [facility] Comment on above: Order Comment: Speci men Type: BLOOD SPECIMENOrdering Facility: [facility] Address: [address] [place] [address] Performed By: #### 2 4321-2 ####[facility] LABCLIA [id number] [facility] [place] [address] [place] Chloride [Moles/Vol] 105 mmol/L Normal 97-105 [facility] Comment on above: Order Comment: Speci men Type: BLOOD SPECIMENOrdering Facility: [facility] Address: [address] [place] [address] Performed By: #### 2 4321-2 ####[facility] [place] LABCLIA [id number] [facility] [address] [place] CO2 [Moles/Vol] 27 mmol/L Normal 22-30 [facility] Comment on above: Order Comment: Speci men Type: BLOOD SPECIMENOrdering Facility: [facility] Address: [address] [place] [address] Performed By: #### 2 4321-2 ####[facility] [place] LABCLIA [id number] [facility] [place] [address] [place] Creatinine [Mass/Vol] 2.25 mg/dL High 0.73-1.22 [facility] Comment on above: Order Comment: Luz clement Type: BLOOD SPECIMENOrdering Facility: [facility] Address: [address] [place] [address] Performed By: #### 2 4321-2 ####[facility] LABCLIA [id number] [place] [address] [place] Creatinine and Glomerular filtration rate.predicted panel (S/P/Bld) 32 mL/min/1.73m??? Low >=60 [facility] Comment on above: Order Comment: Luz vaughan Type: BLOOD SPECIMENOrdering Facility: [facility] Address: [address] [place] [address] Result Comment: Breanne mated Glomerular Filtration Rate [...] actual GFR. Performed By: #### 2 4321-2 ####[facility] LABCLIA [id number] [place] [address] [place] Glucose [Mass/Vol] 151 mg/dL High 74-99 [facility] Comment on above: Order Comment: Luz clement Type: BLOOD SPECIMENOrdering Facility: [facility] Address: [address] [place] [address] Result Comment: The [place] Diabetes Association (ADA) provides guidance for cutoff [...] Standards of Medical Care in Diabetes 2016, [place] Diabetes [employer]. Diabetes Care. 2016.39(Suppl 1). Performed By: #### 2 4321-2 ####[facility] LABCLIA [id number] [place] [address] [place] Potassium [Moles/Vol] 5.0 mmol/L Normal 3.7-5.1 [facility] Comment on above: Order Comment: Speci men Type: BLOOD SPECIMENOrdering Facility: [facility] Address: [address] [place] [address] Performed By: #### 2 4321-2 ####[facility] LABCLIA [id number] [place] [address] [place] Sodium [Moles/Vol] 141 mmol/L Normal 136-144 [facility] Comment on above: Order Comment: Speci men Type: BLOOD SPECIMENOrdering Facility: [facility] Address: [address] [place] [address] Performed By: #### 2 4321-2 ####[facility] LABCLIA [id number] [place] [address] [place] Urea nitrogen [Mass/Vol] 48 mg/dL High 9-24 [facility] Comment on above: Order Comment: Speci men Type: BLOOD SPECIMENOrdering Facility: [facility] Address: [address] [place] [address] Performed By: #### 2 4321-2 ####[facility] LABCLIA [id number] [place] [address] [place] NURSING PROGon 06-09-2023 NURSING PROG Normal [facility] PT EDon 06-09-2023 PT ED Normal [facility] SOCIAL WORKon 06-09-2023 SOCIAL WORK Normal [facility] THERAPY NTon 06-09-2023 THERAPY NT Normal [facility] THERAPY NT Normal [facility] THERAPY NT Normal [facility] Basic metabolic 2000 panelon 06-08-2023 Anion gap [Moles/Vol] 11 mmol/L Normal 9-18 [facility] Comment on above: Order Comment: Speci men Type: BLOOD SPECIMENOrdering Facility: [facility] Address: [address] [place] [address] Performed By: #### 2 4321-2 ####[facility] LABCLIA [id number] [facility] [place] [address] [place] Calcium [Mass/Vol] 9.2 mg/dL Normal 8.5-10.2 [facility] Comment on above: Order Comment: Speci men Type: BLOOD SPECIMENOrdering Facility: [facility] Address: [address] [place] [address] Performed By: #### 2 4321-2 ####[facility] LABCLIA [id number] [facility] [address] [place] Chloride [Moles/Vol] 105 mmol/L Normal 97-105 [facility] Comment on above: Order Comment: Speci men Type: BLOOD SPECIMENOrdering Facility: [facility] Address: [address] [place] [address] Performed By: #### 2 4321-2 ####[facility] LABCLIA [id number] [place] [address] [place] CO2 [Moles/Vol] 27 mmol/L Normal 22-30 [facility] Comment on above: Order Comment: Speci men Type: BLOOD SPECIMENOrdering Facility: [facility] Address: [address] [place] [address] Performed By: #### 2 4321-2 ####[facility] LABCLIA [id number] [place] [address] [place] Creatinine [Mass/Vol] 2.23 mg/dL High 0.73-1.22 [facility] Comment on above: Order Comment: Speci men Type: BLOOD SPECIMENOrdering Facility: [facility] Address: [address] [place] [address] Performed By: #### 2 4321-2 ####[facility] LABCLIA [id number] [place] [address] [place] Creatinine and Glomerular filtration rate.predicted panel (S/P/Bld) 32 mL/min/1.73m??? Low >=60 [facility] Comment on above: Order Comment: Luz vaughan Type: BLOOD SPECIMENOrdering Facility: [facility] Address: [address] [place] [address] Result Comment: Breanne mated Glomerular Filtration Rate [...] actual GFR. Performed By: #### 2 4321-2 ####[facility] [employer] [id number] [place] [id number] [place] Glucose [Mass/Vol] 131 mg/dL High 74-99 [facility] Comment on above: Order Comment: Luz vaughan Type: BLOOD SPECIMENOrdering Facility: [facility] Address: [address] [place] [address] Result Comment: The [place] Diabetes Association (ADA) provides guidance for cutoff [...] Standards of Medical Care in Diabetes 2016, [place] Diabetes Association. Diabetes Care. 2016.39(Suppl 1). Performed By: #### 2 4321-2 ####[facility] LABCLIA [id number] [place] [address] [place] Potassium [Moles/Vol] 5.8 mmol/L High 3.7-5.1 [facility] Comment on above: Order Comment: Luz vaughan Type: BLOOD SPECIMENOrdering Facility: [facility] Address: [address] [place] [id number] Performed By: #### 2 4321-2 ####[facility] LABCLIA [id number] [place] [address] [place] Sodium [Moles/Vol] 143 mmol/L Normal 136-144 [facility] Comment on above: Order Comment: Speci men Type: BLOOD SPECIMENOrdering Facility: [facility] Address: [address] [place] [address] Performed By: #### 2 4321-2 ####[facility] LABCLIA [id number] [place] [address] [place] Urea nitrogen [Mass/Vol] 47 mg/dL High 9-24 [facility] Comment on above: Order Comment: Speci men Type: BLOOD SPECIMENOrdering Facility: [facility] Address: [address] [place] [address] Performed By: #### 2 4321-2 ####[facility] LABCLIA [id number] [place] [address] [place] Anion gap [Moles/Vol] 10 mmol/L Normal 9-18 [facility] Comment on above: Order Comment: Speci men Type: BLOOD SPECIMENOrdering Facility: [facility] Address: [address] [place] [address] Performed By: #### 2 4321-2 ####[facility] LABCLIA [id number] [place] [address] [place] Calcium [Mass/Vol] 9.1 mg/dL Normal 8.5-10.2 [facility] Comment on above: Order Comment: Speci men Type: BLOOD SPECIMENOrdering Facility: [facility] Address: [address] [place] [phone] Performed By: #### 2 4321-2 ####[facility] LABCLIA [id number] [place] [address] [place] Chloride [Moles/Vol] 104 mmol/L Normal 97-105 [facility] Comment on above: Order Comment: Speci men Type: BLOOD SPECIMENOrdering Facility: [facility] Address: [address] [place] [address] Performed By: #### 2 4321-2 ####[facility] [employer] LABCLIA [id number] [place] [address] [place] CO2 [Moles/Vol] 27 mmol/L Normal 22-30 [facility] Comment on above: Order Comment: Speci men Type: BLOOD SPECIMENOrdering Facility: [facility] Address: [address] [place] [address] Performed By: #### 2 4321-2 ####[facility] LABCLIA [id number] [place] [address] [facility] Creatinine [Mass/Vol] 2.26 mg/dL High 0.73-1.22 [facility] Comment on above: Order Comment: Speci men Type: BLOOD SPECIMENOrdering Facility: [facility] Address: [address] [place] [address] Performed By: #### 2 4321-2 ####[facility] LABCLIA [id number] [place] [id number] [facility] Creatinine and Glomerular filtration rate.predicted panel (S/P/Bld) 32 mL/min/1.73m??? Low >=60 [facility] Comment on above: Order Comment: Speci men Type: BLOOD SPECIMENOrdering Facility: [facility] Address: [address] [place] [address] Result Comment: Breanne mated Glomerular Filtration Rate [...] GFR. Performed By: #### 2 4321-2 ####[facility] [employer] LABCLIA [id number] [place] [address] [place] Glucose [Mass/Vol] 166 mg/dL High 74-99 [facility] Comment on above: Order Comment: Speci men Type: BLOOD SPECIMENOrdering Facility: [facility] Address: [address] [place], [place] [id number] Result Comment: The [place] Diabetes Association (ADA) provides guidance for cutoff [...] Standards of Medical Care in Diabetes 2016, [place] Diabetes [employer]. Diabetes Care. 2016.39(Suppl 1). Performed By: #### 2 4321-2 ####[facility] [employer] LABCLIA [id number] [place] [address] [place] Potassium [Moles/Vol] 5.7 mmol/L High 3.7-5.1 [facility] Comment on above: Order Comment: Brooksi men Type: BLOOD SPECIMENOrdering Facility: [facility] Address: [address] [place], [place] [id number] Performed By: #### 2 4321-2 ####[facility] [employer] LABCLIA [id number] [place] [address] [place] Sodium [Moles/Vol] 141 mmol/L Normal 136-144 [facility] Comment on above: Order Comment: Speci men Type: BLOOD SPECIMENOrdering Facility: [facility] Address: [address] [place], [place] [address] Performed By: #### 2 4321-2 ####[facility] [place] LABCLIA [id number] [place] [address] [place] Urea nitrogen [Mass/Vol] 50 mg/dL High 9-24 [facility] Comment on above: Order Comment: Speci men Type: BLOOD SPECIMENOrdering Facility: [facility] Address: [address] [place] [address] Performed By: #### 2 4321-2 ####[facility] LABCLIA [id number] [place] [address] [place] POTASSIUM BLDon 06-08-2023 Potassium [Moles/Vol] 5.0 mmol/L Normal 3.7-5.1 [facility] Comment on above: Order Comment: Speci men Type: BLOOD SPECIMENOrdering Facility: [facility] Address: [address] [place] [address] Performed By: #### K 1 ####[facility] [place] LABCLIA [id number] [place] [address] [place] SOCIAL WORKon 06-08-2023 SOCIAL WORK Normal [facility] THERAPY NTon 06-08-2023 THERAPY NT Normal [facility] THERAPY NT Normal [facility] Basic metabolic 2000 panelon 06-07-2023 Anion gap [Moles/Vol] 10 mmol/L Normal 9-18 [facility] Comment on above: Order Comment: Speci men Type: BLOOD SPECIMENOrdering Facility: [facility] Address: [address] [place] [address] Performed By: #### 2 4321-2 ####[facility] LABCLIA [id number] [place] [address] [place] Calcium [Mass/Vol] 9.3 mg/dL Normal 8.5-10.2 [facility] Comment on above: Order Comment: Speci men Type: BLOOD SPECIMENOrdering Facility: [facility] Address: [address] [place] [address] Performed By: #### 2 4321-2 ####[facility] LABCLIA [id number] [place] [address] [place] Chloride [Moles/Vol] 108 mmol/L High 97-105 [facility] Comment on above: Order Comment: Speci men Type: BLOOD SPECIMENOrdering Facility: [facility] Address: [address] [place] [address] Performed By: #### 2 4321-2 ####[facility] [employer] LABCLIA [id number] [place] [address] [place] CO2 [Moles/Vol] 28 mmol/L Normal 22-30 [facility] Comment on above: Order Comment: Speci men Type: BLOOD SPECIMENOrdering Facility: [facility] Address: [address] [place] [address] Performed By: #### 2 4321-2 ####[facility] LABCLIA [id number] [place] [address] [place] Creatinine [Mass/Vol] 2.43 mg/dL High 0.73-1.22 [facility] Comment on above: Order Comment: Speci men Type: BLOOD SPECIMENOrdering Facility: [facility] Address: [address] [place] [address] Performed By: #### 2 4321-2 ####[facility] LABCLIA [id number] [place] [address] [place] Creatinine and Glomerular filtration rate.predicted panel (S/P/Bld) 29 mL/min/1.73m??? Low >=60 [facility] Comment on above: Order Comment: Speci men Type: BLOOD SPECIMENOrdering Facility: [facility] Address: [address] [place] [address] Result Comment: Breanne mated Glomerular Filtration Rate [...] GFR. Performed By: #### 2 4321-2 ####[facility] [employer] LABCLIA [id number] [place] [address] [place] Glucose [Mass/Vol] 139 mg/dL High 74-99 [facility] Comment on above: Order Comment: Speci men Type: BLOOD SPECIMENOrdering Facility: [facility] Address: [address] [phone] Result Comment: The [place] Diabetes Association (ADA) provides guidance for cutoff [...] Standards of Medical Care in Diabetes 2016, [place] [employer]. Diabetes Care. 2016.39(Suppl 1). Performed By: #### 2 4321-2 ####[facility] [employer] LABCLIA [id number] [place] [address] [place] Potassium [Moles/Vol] 5.8 mmol/L High 3.7-5.1 [facility] Comment on above: Order Comment: Luz men Type: BLOOD SPECIMENOrdering Facility: [facility] Address: [address] [id number] Performed By: #### 2 4321-2 ####[facility] [employer] LABCLIA [id number] [place] [address] [place] Sodium [Moles/Vol] 146 mmol/L High 136-144 [facility] Comment on above: Order Comment: Speci men Type: BLOOD SPECIMENOrdering Facility: [facility] Address: [address] [phone] Performed By: #### 2 4321-2 ####[facility] [place] LABCLIA [id number] [place] [address] [place] Urea nitrogen [Mass/Vol] 53 mg/dL High 9-24 [facility] Comment on above: Order Comment: Brooksi men Type: BLOOD SPECIMENOrdering Facility: [facility] Address: [address] [phone] Performed By: #### 2 4321-2 ####[facility] [place] LABCLIA [id number] [facility] [place] [address] [facility] Comprehensive metabolic 2000 panelon 06-07-2023 Albumin [Mass/Vol] 3.1 g/dL Low 3.9-4.9 [facility] Comment on above: Order Comment: Speci men Type: BLOOD SPECIMENOrdering Facility: [facility] Address: [address] [place] [address] Performed By: #### 2 4323-8 ####[facility] [place] LABCLIA [id number] [facility] [address] [facility] ALP [Catalytic activity/Vol] 112 U/L Normal 38-113 [facility] Comment on above: Order Comment: Speci men Type: BLOOD SPECIMENOrdering Facility: [facility] Address: [address] [place] [address] Performed By: #### 2 4323-8 ####[facility] [place] LABCLIA [id number] [facility] [place] [address] [facility] ALT With P-5'-P [Catalytic activity/Vol] 25 U/L Normal 10-54 [facility] Comment on above: Order Comment: Speci men Type: BLOOD SPECIMENOrdering Facility: [facility] Address: [address] [place] [address] Performed By: #### 2 4323-8 ####[facility] LABCLIA [id number] [facility] [place] [address] [facility] Anion gap [Moles/Vol] 12 mmol/L Normal 9-18 [facility] Comment on above: Order Comment: Speci men Type: BLOOD SPECIMENOrdering Facility: [facility] Address: [address] [place] [address] Performed By: #### 2 4323-8 ####[facility] [place] LABCLIA [id number] [facility] [place] [address] [facility] AST With P-5'-P [Catalytic activity/Vol] 20 U/L Normal 14-40 [facility] Comment on above: Order Comment: Speci men Type: BLOOD SPECIMENOrdering Facility: [facility] Address: [address] [place] [address] Performed By: #### 2 4323-8 ####[facility] LABCLIA [id number] [facility] [place] [address] [place] Bilirubin [Mass/Vol] mg/dL Low 0.2-1.3 [facility] Comment on above: Order Comment: Speci men Type: BLOOD SPECIMENOrdering Facility: [facility] Address: [address] [place] [address] Performed By: #### 2 4323-8 ####[facility] LABCLIA [id number] [facility] [place] [address] [place] Calcium [Mass/Vol] 9.0 mg/dL Normal 8.5-10.2 [facility] Comment on above: Order Comment: Speci men Type: BLOOD SPECIMENOrdering Facility: [facility] Address: [address] [place] [address] Performed By: #### 2 4323-8 ####[facility] LABCLIA [id number] [facility] [place] [address] [place] Chloride [Moles/Vol] 105 mmol/L Normal 97-105 [facility] Comment on above: Order Comment: Speci men Type: BLOOD SPECIMENOrdering Facility: [facility] Address: [address] [place] [address] Performed By: #### 2 4323-8 ####[facility] LABCLIA [id number] [facility] [place] [address] [place] CO2 [Moles/Vol] 24 mmol/L Normal 22-30 [facility] Comment on above: Order Comment: Speci men Type: BLOOD SPECIMENOrdering Facility: [facility] Address: [address] [place] [address] Performed By: #### 2 4323-8 ####[facility] LABCLIA [id number] [place] [address] [place] Creatinine [Mass/Vol] 2.22 mg/dL High 0.73-1.22 [facility] Comment on above: Order Comment: Luz vaughan Type: BLOOD SPECIMENOrdering Facility: [facility] Address: [address] [place] [address] Performed By: #### 2 4323-8 ####[facility] LABCLIA [id number] [place] [id number] [facility] Creatinine and Glomerular filtration rate.predicted panel (S/P/Bld) 32 mL/min/1.73m??? Low >=60 [facility] Comment on above: Order Comment: Luz vaughan Type: BLOOD SPECIMENOrdering Facility: [facility] Address: [address] [place] [address] Result Comment: Breanne mated Glomerular Filtration Rate [...] actual GFR. Performed By: #### 2 4323-8 ####[facility] LABCLIA [id number] [place] [address] [place] Glucose [Mass/Vol] 103 mg/dL High 74-99 [facility] Comment on above: Order Comment: Luz vaughan Type: BLOOD SPECIMENOrdering Facility: [facility] Address: [address] [place] [address] Result Comment: The [place] Diabetes Association (ADA) provides guidance for cutoff [...] Standards of Medical Care in Diabetes 2016, [place] [employer]. Diabetes Care. 2016.39(Suppl 1). Performed By: #### 2 4323-8 ####[facility] LABCLIA [id number] [place] [address] [place] Potassium [Moles/Vol] 4.9 mmol/L Normal 3.7-5.1 [facility] Comment on above: Order Comment: Speci men Type: BLOOD SPECIMENOrdering Facility: [facility] Address: [address] [place] [address] Performed By: #### 2 4323-8 ####[facility] LABCLIA [id number] [place] [address] [place] Protein [Mass/Vol] 6.1 g/dL Low 6.3-8.0 [facility] Comment on above: Order Comment: Speci men Type: BLOOD SPECIMENOrdering Facility: [facility] Address: [address] [place] [address] Performed By: #### 2 4323-8 ####[facility] [employer] LABCLIA [id number] [place] [address] [place] Sodium [Moles/Vol] 141 mmol/L Normal 136-144 [facility] Comment on above: Order Comment: Speci men Type: BLOOD SPECIMENOrdering Facility: [facility] Address: [address] [place] [address] Performed By: #### 2 4323-8 ####[facility] LABCLIA [id number] [place] [address] [place] Urea nitrogen [Mass/Vol] 49 mg/dL High 9-24 [facility] Comment on above: Order Comment: Speci men Type: BLOOD SPECIMENOrdering Facility: [facility] Address: [address] [place] [address] Performed By: #### 2 4323-8 ####[facility] LABCLIA [id number] [place] [address] [place] SOCIAL WORKon 06-07-2023 SOCIAL WORK Normal [facility] THERAPY NTon 06-07-2023 THERAPY NT Normal [facility] THERAPY NT Normal [facility] SOCIAL WORKon 06-06-2023 SOCIAL WORK Normal [facility] THERAPY NTon 06-06-2023 THERAPY NT Normal [facility] Basic metabolic 2000 panelon 06-05-2023 Anion gap [Moles/Vol] 9 mmol/L Normal 9-18 [facility] Comment on above: Order Comment: Speci men Type: BLOOD SPECIMENOrdering Facility: [facility] Address: [address] [place] [address] Performed By: #### 2 4321-2 ####[facility] LABCLIA [id number] [place] [address] [place] Calcium [Mass/Vol] 8.7 mg/dL Normal 8.5-10.2 [facility] Comment on above: Order Comment: Speci men Type: BLOOD SPECIMENOrdering Facility: [facility] Address: [address] [place] [address] Performed By: #### 2 4321-2 ####[facility] LABCLIA [id number] [place] [address] [place] Chloride [Moles/Vol] 107 mmol/L High 97-105 [facility] Comment on above: Order Comment: Speci men Type: BLOOD SPECIMENOrdering Facility: [facility] Address: [address] [place] [address] Performed By: #### 2 4321-2 ####[facility] LABCLIA [id number] [place] [address] [place] CO2 [Moles/Vol] 25 mmol/L Normal 22-30 [facility] Comment on above: Order Comment: Speci men Type: BLOOD SPECIMENOrdering Facility: [facility] Address: [address] [place] [address] Performed By: #### 2 4321-2 ####[facility] LABCLIA [id number] [place] [address] [place] Creatinine [Mass/Vol] 2.20 mg/dL High 0.73-1.22 [facility] Comment on above: Order Comment: Luz vaughan Type: BLOOD SPECIMENOrdering Facility: [facility] Address: [address] [place] [address] Performed By: #### 2 4321-2 ####[facility] LABCLIA [id number] [place] [id number] [facility] Creatinine and Glomerular filtration rate.predicted panel (S/P/Bld) 33 mL/min/1.73m??? Low >=60 [facility] Comment on above: Order Comment: Luz vaughan Type: BLOOD SPECIMENOrdering Facility: [facility] Address: [address] [place] [address] Result Comment: Breanne mated Glomerular Filtration Rate [...] actual GFR. Performed By: #### 2 4321-2 ####[facility] LABCLIA [id number] [place] [address] [place] Glucose [Mass/Vol] 148 mg/dL High 74-99 [facility] Comment on above: Order Comment: Luz vaughan Type: BLOOD SPECIMENOrdering Facility: [facility] Address: [address] [place] [address] Result Comment: The [place] Diabetes Association (ADA) provides guidance for cutoff [...] Standards of Medical Care in Diabetes 2016, [place] [employer]. Diabetes Care. 2016.39(Suppl 1). Performed By: #### 2 4321-2 ####[facility] LABCLIA [id number] [place] [address] [place] Potassium [Moles/Vol] 5.0 mmol/L Normal 3.7-5.1 [facility] Comment on above: Order Comment: Speci men Type: BLOOD SPECIMENOrdering Facility: [facility] Address: [address] [place] [address] Performed By: #### 2 4321-2 ####[facility] [employer] LABCLIA [id number] [place] [address] [place] Sodium [Moles/Vol] 141 mmol/L Normal 136-144 [facility] Comment on above: Order Comment: Speci men Type: BLOOD SPECIMENOrdering Facility: [facility] Address: [address] [place] [address] Performed By: #### 2 4321-2 ####[facility] [employer] LABCLIA [id number] [place] [address] [place] Urea nitrogen [Mass/Vol] 44 mg/dL High 9-24 [facility] Comment on above: Order Comment: Speci men Type: BLOOD SPECIMENOrdering Facility: [facility] Address: [address] [place] [address] Performed By: #### 2 4321-2 ####[facility] LABCLIA [id number] [place] [address] [place] NUTRITIONon 06-05-2023 NUTRITION Normal [facility] PT EDon 06-05-2023 PT ED Normal [facility] SOCIAL WORKon 06-05-2023 SOCIAL WORK Normal [facility] SOCIAL WORK Normal [facility] THERAPY NTon 06-05-2023 THERAPY NT Normal [facility] THERAPY NT Normal [facility] Basic metabolic 2000 panelon 06-04-2023 Anion gap [Moles/Vol] 9 mmol/L Normal 9-18 [facility] Comment on above: Order Comment: Speci men Type: BLOOD SPECIMENOrdering Facility: [facility] Address: [address] [place] [address] Performed By: #### 2 4321-2 ####[facility] LABCLIA [id number] [place] [address] [place] Calcium [Mass/Vol] 8.7 mg/dL Normal 8.5-10.2 [facility] Comment on above: Order Comment: Speci men Type: BLOOD SPECIMENOrdering Facility: [facility] Address: [address] [place] [address] Performed By: #### 2 4321-2 ####[facility] LABCLIA [id number] [place] [facility] [place] [address] [place] Chloride [Moles/Vol] 106 mmol/L High 97-105 [facility] Comment on above: Order Comment: Speci men Type: BLOOD SPECIMENOrdering Facility: [facility] Address: [address] [place] [address] Performed By: #### 2 4321-2 ####[facility] LABCLIA [id number] [facility] [place] [address] [place] CO2 [Moles/Vol] 26 mmol/L Normal 22-30 [facility] Comment on above: Order Comment: Speci men Type: BLOOD SPECIMENOrdering Facility: [facility] Address: [address] [place] [address] Performed By: #### 2 4321-2 ####[facility] LABCLIA [id number] [place] [address] [place] Creatinine [Mass/Vol] 2.33 mg/dL High 0.73-1.22 [facility] Comment on above: Order Comment: Speci men Type: BLOOD SPECIMENOrdering Facility: [facility] Address: [address] [place] [address] Performed By: #### 2 4321-2 ####[facility] LABCLIA [id number] [place] [address] [place] Creatinine and Glomerular filtration rate.predicted panel (S/P/Bld) 31 mL/min/1.73m??? Low >=60 [facility] Comment on above: Order Comment: Luz vaughan Type: BLOOD SPECIMENOrdering Facility: [facility] Address: [address] [place] [address] Result Comment: Breanne mated Glomerular Filtration Rate [...] GFR. Performed By: #### 2 4321-2 ####[facility] [employer] LABIA [id number] [place] [id number] [place] Glucose [Mass/Vol] 150 mg/dL High 74-99 [facility] Comment on above: Order Comment: Luz vaughan Type: BLOOD SPECIMENOrdering Facility: [facility] Address: [address] [place] [address] Result Comment: The [place] Diabetes Association (ADA) provides guidance for cutoff [...] Standards of Medical Care in Diabetes 2016, [place] [employer]. Diabetes Care. 2016.39(Suppl 1). Performed By: #### 2 4321-2 ####[facility] [employer] LABCLIA [id number] [place] [address] [place] Potassium [Moles/Vol] 5.1 mmol/L Normal 3.7-5.1 [facility] Comment on above: Order Comment: Speci men Type: BLOOD SPECIMENOrdering Facility: [facility] Address: [address] [place] [address] Performed By: #### 2 4321-2 ####[facility] [place] LABCLIA [id number] [place] [address] [place] Sodium [Moles/Vol] 141 mmol/L Normal 136-144 [facility] Comment on above: Order Comment: Speci men Type: BLOOD SPECIMENOrdering Facility: [facility] Address: [address] [place] [address] Performed By: #### 2 4321-2 ####[facility] LABCLIA [id number] [place] [address] [place] Urea nitrogen [Mass/Vol] 45 mg/dL High 9-24 [facility] Comment on above: Order Comment: Speci men Type: BLOOD SPECIMENOrdering Facility: [facility] Address: [address] [place] [address] Performed By: #### 2 4321-2 ####[facility] LABCLIA [id number] [place] [address] [place] CBC panel Auto (Bld)on 06-03 Erythrocyte distribution width (RBC) [Ratio] 12.9 % Normal 11.5-15.0 [facility] Comment on above: Order Comment: Speci men Type: BLOOD SPECIMENOrdering Facility: [facility] Address: [address] [place] [address] Performed By: #### 5 8410-2, WAMMR ####[facility] LABCLIA [id number] [place] [address] [facility] Hematocrit (Bld) [Volume fraction] 35.5 % Low 39.0-51.0 [facility] Comment on above: Order Comment: Speci men Type: BLOOD SPECIMENOrdering Facility: [facility] Address: [address] [place] [address] Performed By: #### 5 8410-2, WAMMR ####[facility] LABCLIA [id number] [facility] [place] [address] [place] [facility] Hemoglobin (Bld) [Mass/Vol] 11.1 g/dL Low 13.0-17.0 [facility] Comment on above: Order Comment: Speci men Type: BLOOD SPECIMENOrdering Facility: [facility] Address: [address] [place] [address] Performed By: #### 5 8410-2, WAMMR ####[facility] LABCLIA [id number] [place] [address] [place] MCH (RBC) [Entitic mass] 28.5 pg Normal 26.0-34.0 [facility] Comment on above: Order Comment: Speci men Type: BLOOD SPECIMENOrdering Facility: [facility] Address: [address] [place] [address] Performed By: #### 5 8410-2, WAMMR ####[facility] LABCLIA [id number] [place] [address] [place] MCHC (RBC) [Mass/Vol] 31.3 g/dL Normal 30.5-36.0 [facility] Comment on above: Order Comment: Speci men Type: BLOOD SPECIMENOrdering Facility: [facility] Address: [address] [place] [address] Performed By: #### 5 8410-2, WAMMR ####[facility] LABCLIA [id number] [place] [address] [place] MCV (RBC) [Entitic vol] 91.0 fL Normal 80.0-100.0 [facility] Comment on above: Order Comment: Speci men Type: BLOOD SPECIMENOrdering Facility: [facility] Address: [address] [place] [address] Performed By: #### 5 8410-2, WAMMR ####[facility] LABCLIA [id number] [place] [address] [facility] Platelet mean volume (Bld) [Entitic vol] 10.5 fL Normal 9.0-12.7 [facility] Comment on above: Order Comment: Speci men Type: BLOOD SPECIMENOrdering Facility: [facility] Address: [address] [place] [address] Performed By: #### 5 8410-2, WAMMR ####[facility] [employer] LABCLIA [id number] [place] [address] [place] Platelets (Bld) [#/Vol] 217 10*3/uL Normal 150-400 [facility] Comment on above: Order Comment: Speci men Type: BLOOD SPECIMENOrdering Facility: [facility] Address: [address] [place] [address] Result Comment: No c lot detected. Performed By: #### 5 8410-2, WAMMR ####[facility] [employer] LABCLIA [id number] [place] [address] [place] RBC (Bld) [#/Vol] 3.90 10*6/uL Low 4.20-6.00 [facility] Comment on above: Order Comment: Speci men Type: BLOOD SPECIMENOrdering Facility: [facility] Address: [address] [place] [address] Performed By: #### 5 8410-2, WAMMR ####[facility] [employer] LABCLIA [id number] [place] [address] [place] WBC (Bld) [#/Vol] 3.18 10*3/uL Low 3.70-11.00 [facility] Comment on above: Order Comment: Speci men Type: BLOOD SPECIMENOrdering Facility: [facility] Address: [address] [place] [address] Performed By: #### 5 8410-2, WAMMR ####[facility] LABCLIA [id number] [place] [address] [place] MORPH WAM REFLEXon 4 Platelets Estimate (Bld) [#/Vol] Adequate Normal [facility] Comment on above: Order Comment: Speci men Type: BLOOD SPECIMENOrdering Facility: [facility] Address: [address] [place] [address] Performed By: #### 5 8410-2, WAMMR ####[facility] LABCLIA [id number] [facility] [place] [address] [facility] Urinalysis complete panel (U )on 06-04-2023 Bilirubin Ql (U) Negative Normal Negative [facility] Comment on above: Order Comment: Speci men Type: URINE SPECIMENOrdering Facility: [facility] Address: [address] [place] [address] Performed By: #### 2 4356-8 ####[facility] LABCLIA [id number] [place] [address] [facility] Clarity (Unsp spec) Clear Normal Clear [facility] Comment on above: Order Comment: Speci men Type: URINE SPECIMENOrdering Facility: [facility] Address: [address] [place] [address] Performed By: #### 2 4356-8 ####[facility] LABCLIA [id number] [place] [address] [facility] Color (U) Light Yellow Abnormal Yellow [facility] Comment on above: Order Comment: Speci men Type: URINE SPECIMENOrdering Facility: [facility] Address: [address] [place] [address] Performed By: #### 2 4356-8 ####[facility] LABCLIA [id number] [place] [address] [facility] Glucose Test strip (U) [Mass/Vol] 2+ Abnormal Negative [facility] Comment on above: Order Comment: Speci men Type: URINE SPECIMENOrdering Facility: [facility] Address: [address] [place] [address] Performed By: #### 2 4356-8 ####[facility] LABCLIA [id number] [place] [address] [place] Hemoglobin Ql (U) Trace Abnormal Negative [facility] Comment on above: Order Comment: Speci men Type: URINE SPECIMENOrdering Facility: [facility] Address: [address] [place] [address] Performed By: #### 2 4356-8 ####[facility] LABCLIA [id number] [place] [address] [place] Ketones Ql (U) Negative Normal Negative [facility] Comment on above: Order Comment: Speci men Type: URINE SPECIMENOrdering Facility: [facility] Address: [address] [place] [address] Performed By: #### 2 4356-8 ####[facility] LABCLIA [id number] [place] [address] [facility] Leukocyte esterase Test strip Ql (U) Negative Normal Negative [facility] Comment on above: Order Comment: Speci men Type: URINE SPECIMENOrdering Facility: [facility] Address: [address] [place] [address] Performed By: #### 2 4356-8 ####[facility] LABCLIA [id number] [place] [address] [place] [facility] Nitrite Ql (U) Negative Normal Negative [facility] Comment on above: Order Comment: Speci men Type: URINE SPECIMENOrdering Facility: [facility] Address: [address] [place] [address] Performed By: #### 2 4356-8 ####[facility] LABCLIA [id number] [place] [address] [place] pH (U) 6.5 [pH] Normal 5.0-8.0 [facility] Comment on above: Order Comment: Speci men Type: URINE SPECIMENOrdering Facility: [facility] Address: [address] [place] [address] Performed By: #### 2 4356-8 ####[facility] LABCLIA [id number] [place] [address] [place] Protein (U) [Mass/Vol] 3+ Abnormal Negative [facility] Comment on above: Order Comment: Speci men Type: URINE SPECIMENOrdering Facility: [facility] Address: [address] [place] [address] Performed By: #### 2 4356-8 ####[facility] LABCLIA [id number] [place] [address] [facility] RBC LM.HPF (Urine sed) [#/Area] 0-3 /HPF Normal 0-3 /HPF [facility] Comment on above: Order Comment: Speci men Type: URINE SPECIMENOrdering Facility: [facility] Address: [address] [place] [address] Performed By: #### 2 4356-8 ####[facility] LABCLIA [id number] [place] [id number] [facility] Specific gravity (U) [Rel density] 1.020 Normal 1.005-1.030 [facility] Comment on above: Order Comment: Speci men Type: URINE SPECIMENOrdering Facility: [facility] Address: [address] [place] [address] Performed By: #### 2 4356-8 ####[facility] LABCLIA [id number] [place] [id number] [facility] Urobilinogen Ql (U) 0.2 EU/dL Normal 0.2-1.0 EU/dL [facility] Comment on above: Order Comment: Speci men Type: URINE SPECIMENOrdering Facility: [facility] Address: [address] [place] [address] Performed By: #### 2 4356-8 ####[facility] LABCLIA [id number] [place] [id number] [facility] WBC LM.HPF (Urine sed) [#/Area] 0-5 /HPF Normal 0-5 /HPF [facility] Comment on above: Order Comment: Speci men Type: URINE SPECIMENOrdering Facility: [facility] Address: [address] [place] [address] Performed By: #### 2 4356-8 ####[facility] LABCLIA [id number] [place] [address] [place] Basic metabolic 2000 panelon 06-03-2023 Anion gap [Moles/Vol] 10 mmol/L Normal 9-18 [facility] Comment on above: Order Comment: Speci men Type: BLOOD SPECIMENOrdering Facility: [facility] Address: [address] [place] [address] Performed By: #### 2 4321-2 ####[facility] LABCLIA [id number] [place] [address] [place] Calcium [Mass/Vol] 8.7 mg/dL Normal 8.5-10.2 [facility] Comment on above: Order Comment: Speci men Type: BLOOD SPECIMENOrdering Facility: [facility] Address: [address] [place] [address] Performed By: #### 2 4321-2 ####[facility] LABCLIA [id number] [place] [address] [place] Chloride [Moles/Vol] 105 mmol/L Normal 97-105 [facility] Comment on above: Order Comment: Speci men Type: BLOOD SPECIMENOrdering Facility: [facility] Address: [address] [place] [address] Performed By: #### 2 4321-2 ####[facility] LABCLIA [id number] [place] [address] [place] CO2 [Moles/Vol] 26 mmol/L Normal 22-30 [facility] Comment on above: Order Comment: Speci men Type: BLOOD SPECIMENOrdering Facility: [facility] Address: [address] [place] [address] Performed By: #### 2 4321-2 ####[facility] LABCLIA [id number] [place] [place] [address] [place] Creatinine [Mass/Vol] 2.37 mg/dL High 0.73-1.22 [facility] Comment on above: Order Comment: Brooksjonas vaughan Type: BLOOD SPECIMENOrdering Facility: [facility] Address: [address] [place] [address] Performed By: #### 2 4321-2 ####[facility] LABIA [id number] [place] [address] [place] Creatinine and Glomerular filtration rate.predicted panel (S/P/Bld) 30 mL/min/1.73m??? Low >=60 [facility] Comment on above: Order Comment: Brooksjonas vaughan Type: BLOOD SPECIMENOrdering Facility: [facility] Address: [address] [place] [address] Result Comment: Breanne mated Glomerular Filtration Rate [...] actual GFR. Performed By: #### 2 4321-2 ####[facility] LABIA [id number] [place] [address] [place] Glucose [Mass/Vol] 152 mg/dL High 74-99 [facility] Comment on above: Order Comment: Luz vaughan Type: BLOOD SPECIMENOrdering Facility: [facility] Address: [address] [place] [address] Result Comment: The [place] Diabetes Association (ADA) provides guidance for cutoff [...] Standards of Medical Care in Diabetes 2016, [place] [employer]. Diabetes Care. 2016.39(Suppl 1). Performed By: #### 2 4321-2 ####[facility] [place] LABCLIA [id number] [place] [address] [place] Potassium [Moles/Vol] 5.0 mmol/L Normal 3.7-5.1 [facility] Comment on above: Order Comment: Speci men Type: BLOOD SPECIMENOrdering Facility: [facility] Address: [address] [place] [address] Performed By: #### 2 4321-2 ####[facility] [place] LABCLIA [id number] [place] [address] [place] Sodium [Moles/Vol] 141 mmol/L Normal 136-144 [facility] Comment on above: Order Comment: Speci men Type: BLOOD SPECIMENOrdering Facility: [facility] Address: [address] [place] [address] Performed By: #### 2 4321-2 ####[facility] [place] LABCLIA [id number] [place] [facility] [address] [place] Urea nitrogen [Mass/Vol] 44 mg/dL High 9-24 [facility] Comment on above: Order Comment: Speci men Type: BLOOD SPECIMENOrdering Facility: [facility] Address: [address] [place] [address] Performed By: #### 2 4321-2 ####[facility] [place] LABCLIA [id number] [place] [address] [place] Basic metabolic 2000 panelon 06-02-2023 Anion gap [Moles/Vol] 11 mmol/L Normal 9-18 [facility] Comment on above: Order Comment: Speci men Type: BLOOD SPECIMENOrdering Facility: [facility] Address: [address] [place] [address] Performed By: #### 2 4321-2 ####[facility] [place] LABCLIA [id number] [place] [address] [place] Calcium [Mass/Vol] 8.9 mg/dL Normal 8.5-10.2 [facility] Comment on above: Order Comment: Speci men Type: BLOOD SPECIMENOrdering Facility: [facility] Address: [address] [place] [address] Performed By: #### 2 4321-2 ####[facility] [place] LABCLIA [id number] [place] [address] [place] Chloride [Moles/Vol] 104 mmol/L Normal 97-105 [facility] Comment on above: Order Comment: Speci men Type: BLOOD SPECIMENOrdering Facility: [facility] Address: [address] [place] [address] Performed By: #### 2 4321-2 ####[facility] [place] LABCLIA [id number] [place] [address] [place] CO2 [Moles/Vol] 27 mmol/L Normal 22-30 [facility] Comment on above: Order Comment: Speci men Type: BLOOD SPECIMENOrdering Facility: [facility] Address: [address] [place] [address] Performed By: #### 2 4321-2 ####[facility] LABCL[facility] [id number] [place] [address] [place] Creatinine [Mass/Vol] 2.38 mg/dL High 0.73-1.22 [facility] Comment on above: Order Comment: Speci men Type: BLOOD SPECIMENOrdering Facility: [facility] Address: [address] [place] [address] Performed By: #### 2 4321-2 ####[facility] [place] LABCLIA [id number] [place] [address] [facility] Creatinine and Glomerular filtration rate.predicted panel (S/P/Bld) 30 mL/min/1.73m??? Low >=60 [facility] Comment on above: Order Comment: Speci men Type: BLOOD SPECIMENOrdering Facility: [facility] Address: [address] [place] [address] Result Comment: Breanne mated Glomerular Filtration Rate [...] GFR. Performed By: #### 2 4321-2 ####[facility] [employer] LABCLIA [id number] [place] [address] [place] Glucose [Mass/Vol] 146 mg/dL High 74-99 [facility] Comment on above: Order Comment: Luz men Type: BLOOD SPECIMENOrdering Facility: [facility] Address: [address] [place] [address] Result Comment: The [place] Diabetes Association (ADA) provides guidance for cutoff [...] Standards of Medical Care in Diabetes 2016, [place] [employer]. Diabetes Care. 2016.39(Suppl 1). Performed By: #### 2 4321-2 ####[facility] [employer] LABCLIA [id number] [place] [address] [place] Potassium [Moles/Vol] 5.3 mmol/L High 3.7-5.1 [facility] Comment on above: Order Comment: Luz vaughan Type: BLOOD SPECIMENOrdering Facility: [facility] Address: [address] [place] [address] Performed By: #### 2 4321-2 ####[facility] [place] LABCLIA [id number] [place] [address] [place] Sodium [Moles/Vol] 142 mmol/L Normal 136-144 [facility] Comment on above: Order Comment: Brooksi men Type: BLOOD SPECIMENOrdering Facility: [facility] Address: [address] [place] [address] Performed By: #### 2 4321-2 ####[facility] [place] LABCLIA [id number] [place] [address] [place] Urea nitrogen [Mass/Vol] 48 mg/dL High 9-24 [facility] Comment on above: Order Comment: Speci men Type: BLOOD SPECIMENOrdering Facility: [facility] Address: [address] [place] [address] Performed By: #### 2 4321-2 ####[facility] [place] LABCLIA [id number] [place] [address] [place] THERAPY NTon 06-02-2023 THERAPY NT Normal [facility] THERAPY NT Normal [facility] THERAPY NTon 06-01-2023 THERAPY NT Normal [facility] THERAPY NT Normal [facility] THERAPY NT Normal [facility] NURSING PROGon 05-31-2023 NURSING PROG Normal [facility] SOCIAL WORKon 05-31-2023 SOCIAL WORK Normal [facility] THERAPY NTon 05-31-2023 THERAPY NT Normal [facility] THERAPY NT Normal [facility] THERAPY NT Normal [facility] THERAPY NT Normal [facility] Basic metabolic 2000 panelon 05-30-2023 Anion gap [Moles/Vol] 10 mmol/L Normal 9-18 [facility] Comment on above: Order Comment: Speci men Type: BLOOD SPECIMENOrdering Facility: [facility] Address: [address] [place] [address] Performed By: #### 2 4321-2 ####[facility] [place] LABCLIA [id number] [place] [address] [place] Calcium [Mass/Vol] 8.4 mg/dL Low 8.5-10.2 [facility] Comment on above: Order Comment: Speci men Type: BLOOD SPECIMENOrdering Facility: [facility] Address: [address] [place] [address] Performed By: #### 2 4321-2 ####[facility] [place] LABCLIA [id number] [place] [address] [place] Chloride [Moles/Vol] 103 mmol/L Normal 97-105 [facility] Comment on above: Order Comment: Speci men Type: BLOOD SPECIMENOrdering Facility: [facility] Address: [address] [place] [address] Performed By: #### 2 4321-2 ####[facility] [place] LABCLIA [id number] [place] [address] [place] CO2 [Moles/Vol] 23 mmol/L Normal 22-30 [facility] Comment on above: Order Comment: Speci men Type: BLOOD SPECIMENOrdering Facility: [facility] Address: [address] [place] [address] Performed By: #### 2 4321-2 ####[facility] LABCLIA [id number] [place] [address] [place] Creatinine [Mass/Vol] 2.34 mg/dL High 0.73-1.22 [facility] Comment on above: Order Comment: Speci men Type: BLOOD SPECIMENOrdering Facility: [facility] Address: [address] [place] [address] Performed By: #### 2 4321-2 ####[facility] LABCLIA [id number] [place] [address] [facility] Creatinine and Glomerular filtration rate.predicted panel (S/P/Bld) 30 mL/min/1.73m??? Low >=60 [facility] Comment on above: Order Comment: Speci men Type: BLOOD SPECIMENOrdering Facility: [facility] Address: [address] [place] [address] Result Comment: Breanne mated Glomerular Filtration Rate [...] GFR. Performed By: #### 2 4321-2 ####[facility] [employer] LABCLIA [id number] [place] [address] [place] Glucose [Mass/Vol] 242 mg/dL High 74-99 [facility] Comment on above: Order Comment: Speci clement Type: BLOOD SPECIMENOrdering Facility: [facility] Address: [address] [place] [address] Result Comment: The [place] Diabetes Association (ADA) provides guidance for cutoff [...] Standards of Medical Care in Diabetes 2016, [place] [employer]. Diabetes Care. 2016.39(Suppl 1). Performed By: #### 2 4321-2 ####[facility] [employer] LABCLIA [id number] [place] [address] [place] Potassium [Moles/Vol] 4.9 mmol/L Normal 3.7-5.1 [facility] Comment on above: Order Comment: Luz clement Type: BLOOD SPECIMENOrdering Facility: [facility] Address: [address] [place] [address] Performed By: #### 2 4321-2 ####[facility] LABCLIA [id number] [place] [address] [place] Sodium [Moles/Vol] 136 mmol/L Normal 136-144 [facility] Comment on above: Order Comment: Brooksjonas vaughan Type: BLOOD SPECIMENOrdering Facility: [facility] Address: [address] [place] [address] Performed By: #### 2 4321-2 ####[facility] [place] LABCLIA [id number] [place] [address] [place] Urea nitrogen [Mass/Vol] 49 mg/dL High 9-24 [facility] Comment on above: Order Comment: Speci men Type: BLOOD SPECIMENOrdering Facility: [facility] Address: [address] [place] [address] Performed By: #### 2 4321-2 ####[facility] LABCLIA [id number] [place] [address] [place] CASE MGT INIT ASSESon 2023 CASE MGT INIT ASSES Normal [facility] CBC panel Auto (Bld)on 05-30 Erythrocyte distribution width (RBC) [Ratio] 13.3 % Normal 11.5-15.0 [facility] Comment on above: Order Comment: Speci men Type: BLOOD SPECIMENOrdering Facility: [facility] Address: [address] [place] [address] Performed By: #### 5 8410-2 ####[facility] LABCLIA [id number] [place] [address] [place] Hematocrit (Bld) [Volume fraction] 34.3 % Low 39.0-51.0 [facility] Comment on above: Order Comment: Speci men Type: BLOOD SPECIMENOrdering Facility: [facility] Address: [address] [place] [address] Performed By: #### 5 8410-2 ####[facility] LABCL[facility] [id number] [place] [address] [place] Hemoglobin (Bld) [Mass/Vol] 11.1 g/dL Low 13.0-17.0 [facility] Comment on above: Order Comment: Speci men Type: BLOOD SPECIMENOrdering Facility: [facility] Address: [address] [place] [address] Performed By: #### 5 8410-2 ####[facility] LABCLIA [id number] [place] [address] [place] MCH (RBC) [Entitic mass] 29.4 pg Normal 26.0-34.0 [facility] Comment on above: Order Comment: Speci men Type: BLOOD SPECIMENOrdering Facility: [facility] Address: [address] [place] [address] Performed By: #### 5 8410-2 ####[facility] [place] LABCLIA [id number] [place] [facility] [place] [address] [place] MCHC (RBC) [Mass/Vol] 32.4 g/dL Normal 30.5-36.0 [facility] Comment on above: Order Comment: Speci men Type: BLOOD SPECIMENOrdering Facility: [facility] Address: [address] [place] [address] Performed By: #### 5 8410-2 ####[facility] LABCLIA [id number] [place] [address] [place] MCV (RBC) [Entitic vol] 91.0 fL Normal 80.0-100.0 [facility] Comment on above: Order Comment: Speci men Type: BLOOD SPECIMENOrdering Facility: [facility] Address: [address] [place] [address] Performed By: #### 5 8410-2 ####[facility] LABCLIA [id number] [place] [address] [place] Platelet mean volume (Bld) [Entitic vol] 9.7 fL Normal 9.0-12.7 [facility] Comment on above: Order Comment: Speci men Type: BLOOD SPECIMENOrdering Facility: [facility] Address: [address] [place] [address] Performed By: #### 5 8410-2 ####[facility] LABCLIA [id number] [place] [address] [place] Platelets (Bld) [#/Vol] 225 10*3/uL Normal 150-400 [facility] Comment on above: Order Comment: Speci men Type: BLOOD SPECIMENOrdering Facility: [facility] Address: [address] [place] [address] Performed By: #### 5 8410-2 ####[facility] [place] LABCLIA [id number] [place] [address] [place] RBC (Bld) [#/Vol] 3.77 10*6/uL Low 4.20-6.00 [facility] Comment on above: Order Comment: Speci men Type: BLOOD SPECIMENOrdering Facility: [facility] Address: [address] [place] [address] Performed By: #### 5 8410-2 ####[facility] [place] LABCLIA [id number] [place] [address] [place] WBC (Bld) [#/Vol] 3.75 10*3/uL Normal 3.70-11.00 [facility] Comment on above: Order Comment: Speci men Type: BLOOD SPECIMENOrdering Facility: [facility] Address: [address] [place] [address] Performed By: #### 5 8410-2 ####[facility] LABCL[facility] [id number] [place] [address] [facility] [place] NURSING PROGon 05-30-2023 NURSING PROG Normal [facility] SOCIAL WORKon 05-30-2023 SOCIAL WORK Normal [facility] SOCIAL WORK Normal [facility] THERAPY NTon 05-30-2023 THERAPY NT Normal [facility] THERAPY NT Normal [facility] ALLIED HEALTHon 05-29-2023 ALLIED HEALTH Normal [facility] CBC panel Auto (Bld)on 05-29 Erythrocyte distribution width (RBC) [Ratio] 13.4 % Normal 11.5-15.0 [facility] Comment on above: Order Comment: Speci men Type: BLOOD SPECIMENOrdering Facility: [facility] Address: [address] [place] [address] Performed By: #### 5 8410-2 ####[facility] [place] LABCLIA [id number] [place] [address] [facility] Hematocrit (Bld) [Volume fraction] 35.9 % Low 39.0-51.0 [facility] Comment on above: Order Comment: Speci men Type: BLOOD SPECIMENOrdering Facility: [facility] Address: [address] [place] [address] Performed By: #### 5 8410-2 ####[facility] LABCLIA [id number] [place] [address] [facility] [facility] Hemoglobin (Bld) [Mass/Vol] 11.4 g/dL Low 13.0-17.0 [facility] Comment on above: Order Comment: Speci men Type: BLOOD SPECIMENOrdering Facility: [facility] Address: [address] [place] [address] Performed By: #### 5 8410-2 ####[facility] LABCLIA [id number] [place] [address] [place] MCH (RBC) [Entitic mass] 28.9 pg Normal 26.0-34.0 [facility] Comment on above: Order Comment: Speci men Type: BLOOD SPECIMENOrdering Facility: [facility] Address: [address] [place] [address] Performed By: #### 5 8410-2 ####[facility] LABCLIA [id number] [place], [place] [address] [place] [address] [place] MCHC (RBC) [Mass/Vol] 31.8 g/dL Normal 30.5-36.0 [facility] Comment on above: Order Comment: Speci men Type: BLOOD SPECIMENOrdering Facility: [facility] Address: [address] [place] [address] Performed By: #### 5 8410-2 ####[facility] LABCLIA [id number] [place] [address] [place] MCV (RBC) [Entitic vol] 90.9 fL Normal 80.0-100.0 [facility] Comment on above: Order Comment: Speci men Type: BLOOD SPECIMENOrdering Facility: [facility] Address: [address] [place] [address] Performed By: #### 5 8410-2 ####[facility] [place] LABCLIA [id number] [place] [address] [place] Platelet mean volume (Bld) [Entitic vol] 9.3 fL Normal 9.0-12.7 [facility] Comment on above: Order Comment: Speci men Type: BLOOD SPECIMENOrdering Facility: [facility] Address: [address] [place] [address] Performed By: #### 5 8410-2 ####[facility] [place] LABCLIA [id number] [place] [address] [place] Platelets (Bld) [#/Vol] 221 10*3/uL Normal 150-400 [facility] Comment on above: Order Comment: Speci men Type: BLOOD SPECIMENOrdering Facility: [facility] Address: [address] [place] [address] Performed By: #### 5 8410-2 ####[facility] [place] LABCLIA [id number] [place] [address] [facility] [place] RBC (Bld) [#/Vol] 3.95 10*6/uL Low 4.20-6.00 [facility] Comment on above: Order Comment: Speci men Type: BLOOD SPECIMENOrdering Facility: [facility] Address: [address] [place] [address] Performed By: #### 5 8410-2 ####[facility] [place] LABCLIA [id number] [place] [address] [place] WBC (Bld) [#/Vol] 4.62 10*3/uL Normal 3.70-11.00 [facility] Comment on above: Order Comment: Speci men Type: BLOOD SPECIMENOrdering Facility: [facility] Address: [address] [place] [address] Performed By: #### 5 8410-2 ####[facility] [place] LABCLIA [id number] [place] [address] [facility] Comprehensive metabolic 2000 panelon 05-29-2023 Albumin [Mass/Vol] 2.9 g/dL Low 3.9-4.9 [facility] Comment on above: Order Comment: Speci men Type: BLOOD SPECIMENOrdering Facility: [facility] Address: [address] [place] [address] Performed By: #### 2 4323-8 ####[facility] [place] LABCLIA [id number] [facility] [address] [place] [facility] ALP [Catalytic activity/Vol] 109 U/L Normal 38-113 [facility] Comment on above: Order Comment: Speci men Type: BLOOD SPECIMENOrdering Facility: [facility] Address: [address] [place] [address] Performed By: #### 2 4323-8 ####[facility] [place] LABCLIA [id number] [facility] [address] [place] [facility] ALT With P-5'-P [Catalytic activity/Vol] 11 U/L Normal 10-54 [facility] Comment on above: Order Comment: Speci men Type: BLOOD SPECIMENOrdering Facility: [facility] Address: [address] [place] [address] Performed By: #### 2 4323-8 ####[facility] [place] LABCLIA [id number] [facility] [address] [facility] [place] Anion gap [Moles/Vol] 10 mmol/L Normal 9-18 [facility] Comment on above: Order Comment: Speci men Type: BLOOD SPECIMENOrdering Facility: [facility] Address: [address] [place] [address] Performed By: #### 2 4323-8 ####[facility] [place] LABCLIA [id number] [place] [facility] [address] [place] AST With P-5'-P [Catalytic activity/Vol] 13 U/L Low 14-40 [facility] Comment on above: Order Comment: Speci men Type: BLOOD SPECIMENOrdering Facility: [facility] Address: [address] [place] [address] Performed By: #### 2 4323-8 ####[facility] [place] LABCLIA [id number] [place] [address] [place] Bilirubin [Mass/Vol] 0.3 mg/dL Normal 0.2-1.3 [facility] Comment on above: Order Comment: Speci men Type: BLOOD SPECIMENOrdering Facility: [facility] Address: [address] [place] [address] Performed By: #### 2 4323-8 ####[facility] [place] LABCLIA [id number] [facility] [address] [place] Calcium [Mass/Vol] 8.7 mg/dL Normal 8.5-10.2 [facility] Comment on above: Order Comment: Speci men Type: BLOOD SPECIMENOrdering Facility: [facility] Address: [address] [place] [address] Performed By: #### 2 4323-8 ####[facility] [place] LABCLIA [id number] [facility] [address] [place] Chloride [Moles/Vol] 104 mmol/L Normal 97-105 [facility] Comment on above: Order Comment: Speci men Type: BLOOD SPECIMENOrdering Facility: [facility] Address: [address] [place] [address] Performed By: #### 2 4323-8 ####[facility] [place] LABCLIA [id number] [facility] [address] [place] CO2 [Moles/Vol] 24 mmol/L Normal 22-30 [facility] Comment on above: Order Comment: Speci men Type: BLOOD SPECIMENOrdering Facility: [facility] Address: [address] [place] [address] Performed By: #### 2 4323-8 ####[facility] [place] LABCLIA [id number] [facility] [place] [address] [place] Creatinine [Mass/Vol] 2.49 mg/dL High 0.73-1.22 [facility] Comment on above: Order Comment: Speci men Type: BLOOD SPECIMENOrdering Facility: [facility] Address: [address] [place] [address] Performed By: #### 2 4323-8 ####[facility] [employer] LABIP [employer] [id number] [place] [address] [place] Creatinine and Glomerular filtration rate.predicted panel (S/P/Bld) 28 mL/min/1.73m??? Low >=60 [facility] Comment on above: Order Comment: Luz vaughan Type: BLOOD SPECIMENOrdering Facility: [facility] Address: [address] [place] [address] Result Comment: Breanne mated Glomerular Filtration Rate [...] actual GFR. Performed By: #### 2 4323-8 ####[facility] [employer] LABCLIA [id number] [place] [id number] [place] Glucose [Mass/Vol] 240 mg/dL High 74-99 [facility] Comment on above: Order Comment: Luz vaughan Type: BLOOD SPECIMENOrdering Facility: [facility] Address: [address] [place] [address] Result Comment: The [place] [employer] (ADA) provides guidance for cutoff [...] Standards of Medical Care in Diabetes 2016, [place] [employer]. Diabetes Care. 2016.39(Suppl 1). Performed By: #### 2 4323-8 ####[facility] [place] LABCLIA [id number] [place] [address] [place] Potassium [Moles/Vol] 6.0 mmol/L High 3.7-5.1 [facility] Comment on above: Order Comment: Speci men Type: BLOOD SPECIMENOrdering Facility: [facility] Address: [address] [place] [address] Performed By: #### 2 4323-8 ####[facility] [place] LABCLIA [id number] [place] [address] [place] Protein [Mass/Vol] 5.6 g/dL Low 6.3-8.0 [facility] Comment on above: Order Comment: Speci men Type: BLOOD SPECIMENOrdering Facility: [facility] Address: [address] [place] [address] Performed By: #### 2 4323-8 ####[facility] LABCLIA [id number] [facility] [address] [place] Sodium [Moles/Vol] 138 mmol/L Normal 136-144 [facility] Comment on above: Order Comment: Speci men Type: BLOOD SPECIMENOrdering Facility: [facility] Address: [address] [place] [address] Performed By: #### 2 4323-8 ####[facility] LABCLIA [id number] [place] [address] [place] Urea nitrogen [Mass/Vol] 54 mg/dL High 9-24 [facility] Comment on above: Order Comment: Speci men Type: BLOOD SPECIMENOrdering Facility: [facility] Address: [address] [place] [address] Performed By: #### 2 4323-8 ####[facility] LABCLIA [id number] [facility] [address] [place] NUTRITIONon 05-29-2023 NUTRITION Normal [facility] POTASSIUM BLDon 05-29-2023 Potassium [Moles/Vol] 4.6 mmol/L Normal 3.7-5.1 [facility] Comment on above: Order Comment: Speci men Type: BLOOD SPECIMENOrdering Facility: [facility] Address: [address] [place] [address] Performed By: #### K 1 ####[facility] LABCLIA [id number] [place] [address] [place] PT EDon 05-29-2023 PT ED Normal [facility] THERAPY NTon 05-29-2023 THERAPY NT Normal [facility] THERAPY NT Normal [facility] US DVT UPPER LTon 05-29-2023 US DVT UPPER LT Normal [facility] US EXT MASS/FLUID COLLECTION LTon 05-29-2023 US EXT MASS/FLUID COLLECTION LT Normal [facility] CONSULT PROGon 05-28-2023 CONSULT PROG Normal [facility] NURSING PROGon 05-28-2023 NURSING PROG Normal [facility] THERAPY NTon 05-28-2023 THERAPY NT Normal [facility] HISTORY PHYSICALon HISTORY PHYSICAL Normal [facility] THERAPY NTon 05-27-2023 THERAPY NT Normal [facility] THERAPY NT Normal [facility] NURSING PROGon 05-26-2023 NURSING PROG Normal [facility] CNPTOUTREACHon 05-23-2023 CNPTOUTREACH Normal [facility] GLUCOSE, BLOOD (POC)on 05-23 Glucose [Mass/Vol] 444 mg/dL Abnormal 74 - 99 mg/dL [facility] HEMOGLOBIN A1C (POC)on 05-23 HbA1c (Bld) [Mass fraction] 13.9 % Abnormal 4.3 - 5.6 % [facility] CNPTOUTREACHon 05-19-2023 CNPTOUTREACH Normal [facility] ECHOon 12-01-2022 [facility] NM CARDIAC PERF STRESS/PHARM on 12-01-2022 [facility] IR INJ PROC FOR HIP ARTHOGRA M (AK)on 08-30-2022 [facility] HEMOGLOBIN A1C (POC)on 06-29 HbA1c (Bld) [Mass fraction] 8.9 % Abnormal 4.2 - 5.6 % [facility] CBC W Auto Differential pane l (Bld)on 06-01-2022 Basophils (Bld) [#/Vol] 0.03 10*3/uL <0.11 k/uL [facility] Basophils/100 WBC (Bld) 0.4 % [facility] Differential cell count method Nom (Bld) Auto [facility] Eosinophils (Bld) [#/Vol] 0.14 10*3/uL <0.46 k/uL [facility] Eosinophils/100 WBC (Bld) 1.9 % [facility] Erythrocyte distribution width (RBC) [Ratio] 12.8 % 11.5 - 15.0 % [facility] Hematocrit (Bld) [Volume fraction] 44.6 % 39.0 - 51.0 % [facility] Hemoglobin (Bld) [Mass/Vol] 14.6 g/dL 13.0 - 17.0 g/dL [facility] Immature granulocytes (Bld) [#/Vol] 0.04 10*3/uL <0.10 k/uL [facility] Immature granulocytes/100 WBC (Bld) 0.5 % [facility] Lymphocytes (Bld) [#/Vol] 1.73 10*3/uL 1.00 - 4.00 k/uL [facility] Lymphocytes/100 WBC (Bld) 23.3 % [facility] MCH (RBC) [Entitic mass] 28.5 pg 26.0 - 34.0 pg [facility] MCHC (RBC) [Mass/Vol] 32.7 g/dL 30.5 - 36.0 g/dL [facility] MCV (RBC) [Entitic vol] 87.1 fL 80.0 - 100.0 fL [facility] Monocytes (Bld) [#/Vol] 0.55 10*3/uL <0.87 k/uL [facility] Monocytes/100 WBC (Bld) 7.4 % [facility] Neutrophils (Bld) [#/Vol] 4.92 10*3/uL 1.45 - 7.50 k/uL [facility] Neutrophils/100 WBC (Bld) 66.5 % [facility] Nucleated RBC (Bld) [#/Vol] <0.01 k/uL [facility] Nucleated RBC/100 WBC (Bld) [Ratio] 0.0 /100 WBC [facility] Platelet mean volume (Bld) [Entitic vol] 10.1 fL 9.0 - 12.7 fL [facility] Platelets (Bld) [#/Vol] 289 10*3/uL 150 - 400 k/uL [facility] RBC (Bld) [#/Vol] 5.12 10*6/uL 4.20 - 6.0 0 m/uL [facility] WBC (Bld) [#/Vol] 7.41 10*3/uL 3.70 - 11. 00 k/uL [facility] CEA BLDon 06-01-2022 Carcinoembryonic Ag [Mass/Vol] 3.7 ng/mL High <3.0 ng/mL [facility] Comprehensive metabolic 2000 panelon 06-01-2022 Albumin [Mass/Vol] 4.1 g/dL 3.9 - 4.9 g/dL [facility] ALP [Catalytic activity/Vol] 104 U/L 38 - 113 U/L [facility] ALT With P-5'-P [Catalytic activity/Vol] 16 U/L 10 - 54 U/L [facility] Anion gap [Moles/Vol] 9 mmol/L 9 - 18 mmol/L [facility] AST With P-5'-P [Catalytic activity/Vol] 14 U/L 14 - 40 U/L [facility] Bilirubin [Mass/Vol] 0.3 mg/dL 0.2 - 1 .3 mg/dL [facility] Calcium [Mass/Vol] 10.6 mg/dL High 8.5 - 10. 2 mg/dL [facility] Chloride [Moles/Vol] 102 mmol/L 97 - 10 5 mmol/L [facility] CO2 [Moles/Vol] 29 mmol/L 22 - 30 mmol/L [facility] Creatinine [Mass/Vol] 1.69 mg/dL High 0.73 - 1.22 mg/dL [facility] Estimated Glomerular Filtration Rate 45 mL/min/1.73m Low >=60 mL/min/1.73m [facility] Glucose [Mass/Vol] 215 mg/dL High 74 - 99 mg/dL [facility] Potassium [Moles/Vol] 5.8 mmol/L High 3.7 - 5.1 mmol/L [facility] Protein [Mass/Vol] 6.6 g/dL 6.3 - 8.0 g/dL [facility] Sodium [Moles/Vol] 140 mmol/L 136 - 144 mmol/L [facility] Urea nitrogen [Mass/Vol] 39 mg/dL High 9 - 24 mg/dL [facility] GLUCOSE, BLOOD (POC)on 05-18 Glucose [Mass/Vol] 196 mg/dL Abnormal 74 - 99 mg/dL [facility] HEMOGLOBIN A1C (POC)on 05-18 HbA1c (Bld) [Mass fraction] 9.7 % Abnormal 4.2 - 5.6 % [facility] GLUCOSE, BLOOD (POC)on 04-13 Glucose [Mass/Vol] 234 mg/dL Abnormal 74 - 99 mg/dL [facility] HEMOGLOBIN A1C (POC)on 04-13 HbA1c (Bld) [Mass fraction] 10.5 % Abnormal 4.2 - 5.6 % [facility] GLUCOSE, BLOOD (POC)on 03-01 Glucose [Mass/Vol] 384 mg/dL Abnormal 74 - 99 mg/dL [facility] HEMOGLOBIN A1C (POC)on 03-01 HbA1c (Bld) [Mass fraction] 10.7 % Abnormal 4.2 - 5.6 % [facility] CASE MANAGEMon 01-27-2022 CASE MANAGEM HNO ID: [id number] Author: OSCAR Lopez Service: Social Work Author Type: Forensic Sergeant Type: Care Mgt Progress Note Filed: 01/27/2022 12:32 PM Note Text: BEHAVIORAL HEALTH SOCIAL WORK DISCHARGE NOTE SERVICE DATE: 01/27/2022 SERVICE TIME: 8:58 AM Discharge Information Row Name Admission (Current) from 01/20/2022 in [facility] 6D Psychiatry Follow-Up Appointment Psychiatrist Name Deb [facility] Address / Phone # [address] [facility] [place] [address] / Appointment Date 02/11/22 Appointment Time 8:30AM Additional Instructions Bring insurnance card and photo ID. The office is located on the 4th floor of the direct care staffer center ([facility]). Discharge Disposition Discharge Disposition Skilled Care Jail Jail Referral Information Agency Name [facility] [place] Address [address] , [place] [address] Additional Discharge Information Additional Discharge Resources [facility], 6D, Additional Discharge Follow Up Information Once pt is ready for discharge from SNF, please provide pt with transportation back to [facility] to turkey picker his car from the parking lot. Patient/Senior Center Manager Agreeable With Discharge Plan: Yes FREEDOM OF CHOICE EXPLAINED? [facility]-owned/affiliated facilities and agencies have been identified Patient/Senior Center Manager Given/Explained Medicare Discharge Notice (IM letter): Patient Refused/Declined (Date and Time): 01/27/2022 TRANSPORTATION ARRANGEMENTS: [facility] PRESCRIPTIONS FILLED PRIOR TO DISCHARGE: No, patient discharged to fdc ADDITIONAL NOTES: Final arrangements made for pt's discharge today. The pt is aware and agreeable with discharge plans. Update provided to the facility. The pt's car will remain in hospital parking lot. The facility will arrange transportation for pt to return to [facility] to turkey picker his car once SNF stay is complete. Hospital police/security team are aware. SIGNATURE: AMERICA Lopez, OSCAR PATIENT NAME: José Manuel Ashton DATE: January 27, 2022 TIME: 8:58 AM [facility] HNO ID: [id number] Author: Luis Carlos Short Jr., MD Service: [...] Feeling physically and emotionally improved, discharge to intermediate facility on 01/27/22 was activated. Suicide risk [...] PATIENT CONDITION AT DISCHARGE: Improved DISCHARGE DISPOSITION: Custodial Facility COMPLICATIONS: None At this time the patient has maximized his benefit from hospitalization.. The patient denies suicidal or homicidal ideation, intent or plan and is safe for discharge. The patient voices a readiness to transition to intermediate care setting, and has agreed to our [...] (Src) 97.7 (Oral) Resp 14 Ht 5' 10 (1.78m) Wt 255 lb 0.3 oz (115.7kg) [...] management at SNF, therapeutic drug monitoring at [facility] for depakote 2. Psychological Management Recommendations: jayla (more content not included)... [facility] NURSING PROGon 01-27-2022 NURSING PROG HNO ID: [id number] Author: Huong Glass RN Service: Nursing Author Type: Counselor Type: Nursing Progress Note Filed: 01/27/2022 12:25 PM Note Text: [id number] Assumed care of pt awake in bed. [...] peers. Report called to Harish GARZA at [facility]. Pt left unit via stretcher at 1133. Safety precautions maintained. [facility] ALLIED HEALTHon 01-26-2022 ALLIED HEALTH HNO ID: [id number] Author: RT Juarez(R) Service: Radiology Author Type: [...] RT Juarez(R) January 26, 2022 10:57 AM [facility] Basic metabolic 2000 panelon 01-26-2022 Anion gap [Moles/Vol] 6 mmol/L Low 9-[address] [facility] Comment on above: Order Comment: Speci men Type: BLOOD SPECIMENOrdering Facility: [facility] Address: [address] [place] [address] Performed By: #### 1 9123-9, 66395-8, ####[facility]ATORYCLIA [id number] [place] [address] [place] Calcium [Mass/Vol] 9.4 mg/dL Normal 8.5-10.2 [facility] Comment on above: Order Comment: Speci men Type: BLOOD SPECIMENOrdering Facility: [facility] Address: [address] [place], [place] [phone] Performed By: #### 1 9123-9, 26498-8, ####[facility]ORATORYCLIA [id number] [place] [address] [place] Chloride [Moles/Vol] 99 mmol/L Normal 97-105 [facility] Comment on above: Order Comment: Speci men Type: BLOOD SPECIMENOrdering Facility: [facility] Address: [address] [place], [place] [phone] Performed By: #### 1 9123-9, 41074-8, ####[facility]ORATORYCLIA [id number] [address] [address] [place] CO2 [Moles/Vol] 31 mmol/L High 22-30 [facility] Comment on above: Order Comment: Speci men Type: BLOOD SPECIMENOrdering Facility: [facility] Address: [address] [place] [address] Performed By: #### 1 9123-9, 77142-6, ####[facility] LABORATORYCLIA [id number] [place] [address] [place] Creatinine [Mass/Vol] 1.19 mg/dL Normal 0.73-1.[address] [facility] Comment on above: Order Comment: Speci men Type: BLOOD SPECIMENOrdering Facility: [facility] Address: [address] [place] [address] Performed By: #### 1 9123-9, 11875-6, ####[facility]ORATORYCLIA [id number] [place] [address] [place] ESTIMATED GLOMERULAR FILTRATION RATE 69 mL/min/1.73m??? Normal >=60 [facility] Comment on above: Order Comment: Speci men Type: BLOOD SPECIMENOrdering Facility: [facility] Address: [address] [place] [address] Result Comment: Breanne mated Glomerular Filtration Rate [...] actual GFR. Performed By: #### 1 9123-9, 26465-0, ####[facility] LABORATORYCLIA [id number] [place] [address] [place] Glucose [Mass/Vol] 161 mg/dL High 74-99 [facility] Comment on above: Order Comment: Speci men Type: BLOOD SPECIMENOrdering Facility: [facility] Address: [address] [place], [place] [address] [phone] Result Comment: The [place] Diabetes Association (ADA) provides guidance for cutoff [...] Standards of Medical Care in Diabetes 2016, [place] [employer] Association. Diabetes Care. 2016.39(Suppl 1). Performed By: #### 1 9123-9, 66697-3, ####[facility] LABORATORYCLIA [id number] [place] [address] [place] Potassium [Moles/Vol] 5.0 mmol/L Normal 3.7-5.[address] [facility] Comment on above: Order Comment: Speci men Type: BLOOD SPECIMENOrdering Facility: [facility] Address: [address] [place] [address] Performed By: #### 1 9123-9, 13159-6, ####[facility] LABORATORYCLIA [id number] [place] [address] [place] Sodium [Moles/Vol] 136 mmol/L Normal 136-144 [facility] Comment on above: Order Comment: Speci men Type: BLOOD SPECIMENOrdering Facility: [facility] Address: [address] [place] [address] Performed By: #### 1 9123-9, 81813-6, 1987-08, ####[facility] LABORATORYCLIA [id number] [address] [address] [place] Urea nitrogen [Mass/Vol] 26 mg/dL High 9-24 [facility] Comment on above: Order Comment: Speci men Type: BLOOD SPECIMENOrdering Facility: [facility] Address: [address] [place], [place] [address] Performed By: #### 1 9123-9, 66156-4, 1987-, 25707-6 ####[facility] LABORATORYCLIA [id number] [address] [place] [address] [facility] CASE MANAGEMon 01-26-2022 CASE MANAGEM HNO ID: [id number] Author: OSCAR Lopez Service: Social Work Author Type: Forensic Sergeant Type: Care Mgt Progress Note Filed: 01/26/2022 5:01 PM Note Text: BEHAVIORAL HEALTH SOCIAL WORK PROGRESS NOTE SERVICE DATE: 01/26/2022 SERVICE TIME: 4:50 PM Pt's discharge today has been cancelled due to not being medically clear. This medical underwriter was made aware today that pt's car is parked in the hospital parking lot. Informed pt his car will need to remain in parking lot until SNF stay is complete or he could make arrangements with family to turkey picker the car. Pt appears frustrated, stating I don't know what to do.. He reports I don't have anyone to turkey picker the car that knows how to drive in the city.. Pt agreeable to leaving his car in hospital parking lot if approved by hospital security team and if his ambulance ride to facility will be covered by insurance. [facility] contacted billing department (phone #: [phone]) for [employer]. According to their billing department, pt has Medicare and [place] Medicaid. Billing department reports pt should not have a copay or any financial responsibility for ambulance ride.. [facility] informed pt of call with billing department. Pt remains agreeable to being transported to SNF by ambulance. Spoke with Officer Piter at [facility] police department. Discussed the above situation. Officer Piter agrees to allow pt's car to remain on hospital property until SNF stay is complete. [facility] provided officer Piter with pt's name, phone number, name of SNF, license plate number, color and make of vehicle ([employer]), and written reason for the request. Officer Piter will forward this information to fellow officers and security guards at [facility] police at [place]. Update provided to [facility]. The social and political studies professor at the SNF will arrange transportation for pt to come back to [facility] to turkey picker his car once SNF stay is [...] is for pt to be discharged to [facility] tomorrow (01/27) at 11:00am via ambulance (Trip #: [id number]). SW will confirm discharge with facility tomorrow morning. PAS/determination results in pt's chart. SW will continue to follow. SIGNATURE: AMERICA Lopez, FILTER PLANT OPERATOR PATIENT NAME: José Manuel Ashton DATE: January 26, 2022 TIME: 4:50 PM Normal [facility] CBC panel Auto (Bld)on 01-26 Erythrocyte distribution width (RBC) [Ratio] 13.0 % Normal 11.5-15.0 [facility] Comment on above: Order Comment: Speci men Type: BLOOD SPECIMEN [facility] Address: [address] [place] [address] Performed By: #### 5 8410-2 #### [facility] CLIA [id number] ATTN [address] [place] Hematocrit (Bld) [Volume fraction] 43.5 % Normal 39.0-51.0 [facility] Comment on above: Order Comment: Speci men Type: BLOOD SPECIMEN [facility] Address: [address] [place] [phone] Performed By: #### 5 8410-2 #### [facility] CLIA [id number] [address] [place] [address] [place] Hemoglobin (Bld) [Mass/Vol] 14.1 g/dL Normal 13.0-17.0 [facility] Comment on above: Order Comment: Speci men Type: BLOOD SPECIMEN [facility] Address: [address] [place] [address] Performed By: #### 5 8410-2 #### [facility] [place] [id number] [address] [place] [address] [place] MCH (RBC) [Entitic mass] 29.0 pg Normal 26.0-34.0 [facility] Comment on above: Order Comment: Speci men Type: BLOOD SPECIMEN [facility] Address: [address] [place] [address] Performed By: #### 5 8410-2 #### [facility] [place] [id number] [address] [place] [address] MCHC (RBC) [Mass/Vol] 32.4 g/dL Normal 30.5-36.[address] [facility] Comment on above: Order Comment: Speci men Type: BLOOD SPECIMEN [facility] Address: [address] [place] [address] Performed By: #### 5 8410-2 #### [facility] [place] [id number] [address] [place] [address] [place] MCV (RBC) [Entitic vol] 89.5 fL Normal 80.0-100.0 [facility] Comment on above: Order Comment: Speci men Type: BLOOD SPECIMEN [facility] Address: [address] [place] [address] Performed By: #### 5 8410-2 #### [facility] [place] [id number] [address] [place] [address] [place] Nucleated RBC (Bld) [#/Vol] 10*3/uL Normal <0.01 [facility] Comment on above: Order Comment: Speci men Type: BLOOD SPECIMEN [facility] Address: [address] [place], [place] [address] Performed By: #### 5 8410-2 #### [facility] CLIA [id number] [address] [place], [place] [address] [place] Platelet mean volume (Bld) [Entitic vol] 9.3 fL Normal 9.0-12.7 [facility] Comment on above: Order Comment: Speci men Type: BLOOD SPECIMEN [facility] Address: [address] [place], [place] [address] Performed By: #### 5 8410-2 #### [facility] [place] [id number] [address] [place] [address] [place] Platelets (Bld) [#/Vol] 278 10*3/uL Normal 150-400 [facility] Comment on above: Order Comment: Speci men Type: BLOOD SPECIMEN [facility] Address: [address] [place], [place] [address] Performed By: #### 5 8410-2 #### [facility] IA [id number] [address] [place], [place] [address] [place] RBC (Bld) [#/Vol] 4.86 10*6/uL Normal 4.20-6.00 [facility] Comment on above: Order Comment: Speci men Type: BLOOD SPECIMEN [facility] Address: [address] [place], [place] [address] Performed By: #### 5 8410-2 #### [facility] CLIA [id number] [address] [place], [place] [address] [place] WBC (Bld) [#/Vol] 5.07 10*3/uL Normal 3.70-11.00 [facility] Comment on above: Order Comment: Speci men Type: BLOOD SPECIMEN [facility] Address: [address] [place], [place] [address] Performed By: #### 5 8410-2 #### [facility] CLIA [id number] [address] [place], [place] [address] [facility] CRP SerPl-mCncon 01-26-2022 CRP [Mass/Vol] 0.3 mg/dL Normal <0.9 [facility] Comment on above: Order Comment: Speci men Type: BLOOD SPECIMENOrdering Facility: [facility] Address: [address] [place] [address] Performed By: #### 1 9123-9, 52751-6, 1987-08, ####S[facility]IANISM LABORATORYCLIA [id number] [place] [address] [facility] Magnesium SerPl-mCncon 01-26 Magnesium [Mass/Vol] 1.8 mg/dL Normal 1.7-2.3 [facility] Comment on above: Order Comment: Speci men Type: BLOOD SPECIMENOrdering Facility: [facility] Address: [address] [place] [address] Performed By: #### 1 9123-9, 22492-7, 1987-08, ####S[facility]IANISM LABORATORYCLIA [id number] [place] [address] [place] NURSING PROGon 01-26-2022 NURSING PROG HNO ID: [id number] Author: Mulu Sosa, LEATHA Service: ? Author Type: Registered Nurse Type: Nursing Progress Note Filed: 01/27/2022 6:45 AM Note Text: Other: () assumed care of pt at this time, pt is alert and oriented x3, flat affect, depressed mood, disheveled appearance. Pt denies any SI/HI/AVH, when asked if he had any anxiety or depression he stated I don't know. Pt medication compliant taken meds whole with H2O. Pt slept estimated 6-7 hours. Normal [facility] NURSING PROG HNO ID: [id number] Author: Huong Glass RN Service: Nursing Author Type: Counselor Type: Nursing Progress Note Filed: 01/26/2022 7:19 PM Note Text: [id number] Assumed care of pt awake in room. [...] AC AND HS. Safety precautions maintained. Normal [facility] Procalcitonin SerPl-mCncon 1 Procalcitonin [Mass/Vol] ng/mL Normal <0.09 [facility] Comment on above: Order Comment: Speci men Type: BLOOD SPECIMENOrdering Facility: [facility] Address: [address] [place] [address] [place] [address] Result Comment: For a guided interpretation of test results, please visit the Change in Procalcitonin Calculator, [email or web address]. Performed By: #### 1 9123-9, 15021-3, 1988-5, 28276-1 ####[facility]ISM LABORATORYCLIA [id number] [address] [place] XR CHEST 1V [...] Stable exam with no acute radiographic abnormality. Director Athletic: PSCB Transcribe Date/Time: Jan 26 2022 11:07A Dictated by : INA DONOVAN DO This examination was interpreted and the report reviewed and electronically signed by: INA DONOVAN DO on Jan 26 2022 11:12AM EST [id number] [facility] CASE MANAGEMon 01-25-2022 CASE MANAGEM HNO ID: [id number] Author: OSCAR Lopez Service: Social Work Author Type: Forensic Sergeant Type: Care Mgt Progress Note Filed: 01/25/2022 4:45 PM Note Text: BEHAVIORAL HEALTH SOCIAL WORK PROGRESS NOTE SERVICE DATE: 01/25/2022 SERVICE TIME: 4:31 PM Received PAS/determination results. Copy placed in pt's chart. Pt spoke with hospital sales representative from [facility] over the phone this afternoon. SW spoke with admissions. Facility will provide decision on acceptance by either 5pm today or early tomorrow morning. Pt tentatively scheduled for discharge tomorrow (01/26) at 2:00pm via ambulance (trip #: [id number]). SW will continue to follow. SIGNATURE: AMERICA Lopez LSW PATIENT NAME: José Manuel Ashton DATE: January 25, 2022 TIME: 4:31 PM [facility] CASE MANAGEM HNO ID: [id number] Author: OSCAR Lopez Service: Social Work Author Type: Forensic Sergeant Type: Care Mgt Progress Note Filed: 01/25/2022 3:52 PM Note Text: BEHAVIORAL HEALTH SOCIAL WORK PROGRESS NOTE SERVICE DATE: 01/25/2022 SERVICE TIME: 10:41 AM [facility] on unit to complete assessment with pt for PAS/RR. Pt is currently linked with an outpatient psychiatrist (Dr. Inez Leon) at [facility]. Psych follow-up appointment scheduled. SW met with pt this afternoon to discuss facilities. Pt has been accepted by [facility]. Awaiting response from [facility]. Pt's [facility]st choice [facility], and 2nd choice is [facility]. Tentative discharge tomorrow or pending facility acceptance/selection and PAS results. Pt will likely need a COVID test prior to discharge. SW will continue to follow. SIGNATURE: Neela Johnson MSW, FILTER PLANT OPERATOR PATIENT NAME: José Manuel Ashton DATE: January 25, 2022 TIME: 10:41 AM [facility] CONSULT PROGon 01-25-2022 CONSULT PROG HNO ID: [id number] Author: Collin Cheema DO Service: Endocrinology Author [...] (Oral) Resp 12 Ht 177.8 cm (5' 10) Wt 115.7 kg (255 lb 0.3 oz) SpO2 96% BMI 36.59 kg/m? NAD. Josiah affect. Non labored resp. RRR. No edema. Medications Current Facility-Administered Medications Medication Dose Route Frequency Provider Last Rate Last Admin metFORMIN ER 500 mg tab(s) (GLUCOPHAGE XR) 500 mg ORAL BID w MEALS Collin Madhun, DO 500 mg at 01/24/22 1708 ergocalciferol (vitamin D2) 50,000 Units cap(s) (DRISDOL) 50,000 Units ORAL 1/WK Collin Madhun, DO 50,000 Units at 01/23/22 1451 tamsulosin 0.8 mg cap(s) (FLOMAX) 0.8 mg ORAL AT BEDTIME Corky Rodarte MD 0.8 mg at 01/24/22 2100 divalproex ER 500 mg tab(s) (DEPAKOTE ER) 500 mg ORAL DAILY Miriam Jennings APRN.BARREL PAINTER 500 mg at 01/24/22 0912 venlafaxine ER 75 mg cap(s) (EFFEXOR XR) 75 mg ORAL DAILY WITH BREAKFAST Miriam Jennings APRN.BARREL PAINTER 75 mg at 01/24/22 0916 haloperidol 5 [...] 30 mL ORAL DAILY PRN Teresa Diego APRN.BARREL PAINTER acetaminophen 650 mg tab(s) (TYLENOL) 650 mg ORAL q 6 H PRN Teresa Diego APRN.BARREL PAINTER insulin lispro injection (rapid acting) (ADMELOG) SUBCUTANEOUS AT BEDTIME Teresa Diego APRN.BARREL PAINTER 1 Units at 01/24/22 2100 lisinopril 20 mg tab(s) (ZESTRIL, PRINIVIL) 20 mg ORAL DAILY Teresa Diego, VISUAL EDUCATION DIRECTOR.BARREL PAINTER 20 mg at 01/24/22 0913 insulin lispro injection (rapid acting) (ADMELOG) SUBCUTANEOUS w MEALS Teresa Diego APRN.BARREL PAINTER 3 Units at 01/24/22 1709 pioglitazone (ACTOS) tab(s) 45 mg 45 mg ORAL DAILY Teresa Diego, VISUAL EDUCATION DIRECTOR.BARREL PAINTER 45 mg at 01/24/22 0912 docusate sodium 100 mg cap(s) (COLACE) 100 mg ORAL BID Teresa Diego APRN.BARREL PAINTER 100 mg at 01/24/22 2100 polyethylene glycol 3350 17 g packet (MIRALAX, GLYCOLAX) 17 g ORAL DAILY Teresa Diego APRN.BARREL PAINTER 17 g at 01/24/22 0912 insulin glargine 33 Units pen (long acting) (LANTUS SOLOSTAR, BASAGLAR KWIKPEN) 33 Units SUBCUTANEOUS AT BEDTIME Teresa Diego APRN.BARREL PAINTER 33 Units at 01/24/222099 melatonin 3 mg tab(s) 3 mg ORAL [...] January 25, 2022 8:42 AM PAGER: [phone] Normal [facility] Comprehensive metabolic 2000 panelon 01-25-2022 Albumin [Mass/Vol] 3.5 g/dL Low 3.9-4.9 [facility] Comment on above: Order Comment: Speci men Type: BLOOD SPECIMEN [facility] Address: [address] [place] [address] Performed By: #### 5 8410-2 #### [facility] CLIA [id number] [address] [place], [place] [address] [place] ALP [Catalytic activity/Vol] 109 U/L Normal 38-113 [facility] Comment on above: Order Comment: Speci men Type: BLOOD SPECIMEN [facility] Address: [address] [place] [address] Performed By: #### 5 8410-2 #### [facility] CLIA [id number] [address] [place], [place] [address] [place] ALT [Catalytic activity/Vol] 12 U/L Normal 10-54 [facility] Comment on above: Order Comment: Speci men Type: BLOOD SPECIMEN [facility] Address: [address] [place], [place] [address] Performed By: #### 5 8410-2 #### [facility] CLIA [id number] [address] [place], [place] [address] [place] Anion gap [Moles/Vol] 13 mmol/L Normal 9-[address] [facility] Comment on above: Order Comment: Speci men Type: BLOOD SPECIMEN [facility] Address: [address] [place] [address] Performed By: #### 5 8410-2 #### [facility] CLIA [id number] [address] [place], [place] [address] [place] AST [Catalytic activity/Vol] 16 U/L Normal 14-40 [facility] Comment on above: Order Comment: Speci men Type: BLOOD SPECIMEN [facility] Address: [address] [place], [place] [address] Performed By: #### 5 8410-2 #### [facility] CLIA [id number] [facility] [place] [address] [place] Bilirubin [Mass/Vol] 0.2 mg/dL Normal 0.2-1.3 [facility] Comment on above: Order Comment: Speci men Type: BLOOD SPECIMEN [facility] Address: [address] [place] [address] Performed By: #### 5 8410-2 #### [facility] CLIA [id number] [address] [place] [address] [place] Calcium [Mass/Vol] 9.3 mg/dL Normal 8.5-10.2 [facility] Comment on above: Order Comment: Speci men Type: BLOOD SPECIMEN [facility] Address: [address] [place], [place] [address] Performed By: #### 5 8410-2 #### [facility] CLIA [id number] [facility] [place] [address] [place] Chloride [Moles/Vol] 100 mmol/L Normal 97-105 [facility] Comment on above: Order Comment: Speci men Type: BLOOD SPECIMEN [facility] Address: [address] [place], [place] [address] Performed By: #### 5 8410-2 #### [facility] CLIA [id number] [address] [place], [place] [address] [place] CO2 [Moles/Vol] 27 mmol/L Normal 22-30 [facility] Comment on above: Order Comment: Speci men Type: BLOOD SPECIMEN [facility] Address: [address] [place], [place] [address] Performed By: #### 5 8410-2 #### [facility] CLIA [id number] [address] [place], [place] [address] [place] [facility] Creatinine [Mass/Vol] 1.20 mg/dL Normal 0.73-1.[address] [facility] Comment on above: Order Comment: Specjonas vaughan Type: BLOOD SPECIMEN Order[facility] Address: [facility] [address] Performed By: #### 5 8410-2 #### [id number] [address] [place] [address] [place] ESTIMATED GLOMERULAR FILTRATION RATE 68 mL/min/1.73m??? Normal >=60 [facility] Comment on above: Order Comment: Luz vaughan Type: BLOOD SPECIMEN [facility] Address: [address] [place] [address] Result Comment: Breanne mated Glomerular Filtration Rate [...] GFR. Performed By: #### 5 8410-2 #### [facility] IA [id number] [address] [place], [place] [address] [place] Glucose [Mass/Vol] 136 mg/dL High 74-99 [facility] Comment on above: Order Comment: Luz clement Type: BLOOD SPECIMEN [facility] Address: [address] [place], [place] [address] Result Comment: The [place] Diabetes Association (ADA) provides guidance for cutoff [...] Standards of Medical Care in Diabetes 2016, [place] [employer] Association. Diabetes Care. 2016.39(Suppl 1). Performed By: #### 5 8410-2 #### [facility] CLIA [id number] [address] [place] [address] [place] Potassium [Moles/Vol] 4.8 mmol/L Normal 3.7-5.[address] [facility] Comment on above: Order Comment: Speci men Type: BLOOD SPECIMEN [facility] Address: [address] [place] [address] Performed By: #### 5 8410-2 #### [facility] [place] [id number] [address] [place] [address] [place] Protein [Mass/Vol] 6.4 g/dL Normal 6.3-8.0 [facility] Comment on above: Order Comment: Speci men Type: BLOOD SPECIMEN [facility] Address: [address] [place] [address] Performed By: #### 5 8410-2 #### [facility] IA [id number] [address] [place] [address] [place] Sodium [Moles/Vol] 140 mmol/L Normal 136-144 [facility] Comment on above: Order Comment: Speci men Type: BLOOD SPECIMEN [facility] Address: [address] [place] [address] Performed By: #### 5 8410-2 #### [facility] CLIA [id number] [address] [place] [address] [place] Urea nitrogen [Mass/Vol] 26 mg/dL High 9-24 [facility] Comment on above: Order Comment: Speci men Type: BLOOD SPECIMEN [facility] Address: [address] [place] [address] Performed By: #### 5 8410-2 #### [facility] CLIA [id number] [address] [place], [place] [address] [facility] NURSING PROGon 01-25-2022 NURSING PROG HNO ID: [id number] Author: Leslie Pa RN Service: Nursing Author Type: Registered Nurse Type: Nursing Progress Note Filed: 01/25/2022 6:55 PM Note Text: Nursing Progress Note Topic of Note: Daily Note José Manuel Ashton [id number] Assumed care of patient. Patient is awake, [...] This note was completed by: Leslie Pa [facility] SARS-CoV-2 RNA Resp Ql BETO+p robeon 01-25-2022 SARS-CoV-2 (COVID-19) RNA BETO+probe Ql (Resp) COVID 19 RESULT: SARS-CoV-2 (Agent of COVID-19) Not Detected by RT-PCR or equivalent method. This test has been authorized by FDA under an Emergency Use Authorization (EUA). [facility] Comment on above: Performed By: #### 9 4500-6 ####[facility] [id number] [place] [id number] [facility] CASE MANAGEMon 01-24-2022 CASE MANAGEM HNO ID: [id number] Author: Neela Elizabeth, FILTER PLANT OPERATOR Service: Social Work Author Type: Forensic Sergeant Type: Care Mgt Progress Note Filed: 01/24/2022 4:08 PM Note Text: BEHAVIORAL HEALTH SOCIAL WORK PROGRESS NOTE SERVICE DATE: 01/24/2022 SERVICE TIME: 3:44 PM SW met with pt in [facility] to discuss discharge plans. Pt has a history of noncompliance with medications and appointments. Discussed options of short term SNF stay for rehab and home with home care. Initially, pt states I don't want to go to a fdc in [place]. I want to go to that place at [facility] (meaning [facility] acute rehab).. Informed pt he does not qualify for acute rehab at this time. PT is recommending SNF. Pt declines home care referral stating it's not my house. I just stay with my brother and sister. I don't want anyone coming in.. SW discussed SNF options further. SW reminded pt it his choice as to which SNF he goes to at discharge. After further discussion, pt was more amenable to going to SNF. Pt agreed for this medical underwriter to begin referral process, and is hopeful to go to a SNF near [facility]. Pt is agreeable to being linked with a psychiatrist in [facility] a well. Submitted PAS via [facility]. Awaiting PAS/determination results. Referrals sent to multiple facilities near [facility]. Awaiting acceptance. Tentative discharge by middle to end of this week pending further stabilization, PAS results, and facility acceptance/selection. SW will need to link pt with a psychiatrist. SW will continue to follow. SIGNATURE: AMERICA Lopez, FILTER PLANT OPERATOR PATIENT NAME: José Manuel Ashton DATE: January 24, 2022 TIME: 3:44 PM [facility] CONSULT PROGon 01-24-2022 CONSULT PROG HNO ID: [id number] Author: Collin Cheema DO Service: Endocrinology Author [...] (Oral) Resp 18 Ht 177.8 cm (5' 10) Wt 115.7 kg (255 lb 0.3 oz) [...] ER) 500 mg ORAL DAILY Miriam Jennings APRN.BARREL PAINTER 500 mg at 01/23/22 0859 venlafaxine ER 75 mg cap(s) (EFFEXOR XR) 75 mg ORAL DAILY WITH BREAKFAST Miriam Jennings APRN.BARREL PAINTER haloperidol 5 mg tab(s) (HALDOL) 5 mg [...] 30 mL ORAL DAILY PRN Teresa Diego APRN.BARREL PAINTER acetaminophen 650 mg tab(s) (TYLENOL) 650 mg ORAL q 6 H PRN Teresa Diego APRN.BARREL PAINTER insulin lispro injection (rapid acting) (ADMELOG) SUBCUTANEOUS AT BEDTIME Teresa Diego APRN.BARREL PAINTER 1 Units at 01/23/222044 lisinopril 20 mg tab(s) (ZESTRIL, PRINIVIL) 20 mg ORAL DAILY Teresa Diego, VISUAL EDUCATION DIRECTOR.BARREL PAINTER 20 mg at 01/23/22 0859 insulin lispro injection (rapid acting) (ADMELOG) SUBCUTANEOUS w MEALS Teresa Diego APRN.BARREL PAINTER 9 Units at 01/23/22 165 pioglitazone (ACTOS) tab(s) 45 mg 45 mg ORAL DAILY Teresa Diego, VISUAL EDUCATION DIRECTOR.BARREL PAINTER 45 mg at 01/23/22 0859 docusate sodium 100 mg cap(s) (COLACE) 100 mg ORAL BID Teresa Diego, VISUAL EDUCATION DIRECTOR.BARREL PAINTER 100 mg at 01/23/222042 polyethylene glycol 3350 17 g packet (MIRALAX, GLYCOLAX) 17 g ORAL DAILY Teresa Diego, VISUAL EDUCATION DIRECTOR.BARREL PAINTER 17 g at 01/23/22 08 insulin glargine 33 Units pen (long acting) (LANTUS SOLOSTAR, BASAGLAR KWIKPEN) 33 Units SUBCUTANEOUS AT BEDTIME Teresa Diego, VISUAL EDUCATION DIRECTOR.BARREL PAINTER 33 Units at 01/23/222044 melatonin 3 mg [...] January 24, 2022 8:42 AM PAGER: [phone] [facility] NURSING PROGon 01-24-2022 NURSING PROG HNO ID: [id number] Author: Leslie Pa RN Service: Nursing Author Type: Registered Nurse Type: Nursing Progress Note Filed: 01/24/2022 6:36 PM Note Text: Nursing Progress Note Topic of Note: Daily Note José Manuel Ashton [id number] [phone] Assumed care of patient. Patient is awake, [...] 127. This note was completed by: Leslie [facility] THERAPY NTon 01-24-2022 THERAPY NT HNO ID: [id number] Author: Ester Ball, Student Service: Occupational Therapy [...] he is not interested in a SNF I don't want to go to a fdc or receive home OT services because it is not my house (lives with brother and sister). Pt reported if I had to go somewhere I would rather go to a rehab center. Recommend increased oversight with medication management due [...] a 61 year old male referred by [facility] for depression. Per Psych consult 01/19/2022 by Rafal Fuentes PA-C Mood is not good. Feels angry most of the days. Feels kind of anxious today. Vague about his depression. I probably need help. I don't want to go backwards. I'm going backwards. I don't know. I don't know what is going on. Endorses low motivation, low energy. Endorses sleep difficulties. Admits difficulties managing his medicine. Says his concentration is probably not very good. Endorses feeling overwhelmed: I don't know what is going on.... too many things with my health. I don't know if I will get better. When asked if he has wishes, states I don't know. He denies thoughts to hurt himself or end his life. Denies hallucinations. Pt was admitted medically on 01/17 for elevated glucose levels. Pt had stopped taking his medications. Given concerns for his depression to be affecting his quality of life and his ability to care for himself, voluntary admission to inpatient psychiatry recommended for further evaluation and care. Patient is agreeable. Per ED vineyard worker Roxanne MOORE on 01/17 This medical underwriter assessed patient via face to face who presents alert and oriented x 4, appears overweight and disheveled, speech is within normal limits appropriate to tone, prosody, melody, phonetic, and syntax, thought process is linear and organized, difficulty concentrating at times, and a poor historian,, mood is depressed with flat affect, with impaired judgement and insight into illness. Patient reports that his Apprentice Pattern Maker sent him to the emergency room for [...] have too many things going on?. This medical underwriter inquires if patient believ (more content not included)... Normal [facility] ALBUMIN/CREAT RATIO RND URon 01-23-2022 Albumin DL <= 20 mg/L (U) [Mass/Vol] 1334.3 mg/L Normal [facility] Comment on above: Order Comment: Specjonas men Type: BLOOD SPECIMEN [facility] Address: [address] [place] [address] Performed By: #### 5 8410-2 #### [facility] [place] [id number] [address] [place] [address] Albumin/Creatinine (U) [Mass ratio] 1438 mg/g High <30 [facility] Comment on above: Order Comment: Luz vaughan Type: BLOOD SPECIMEN [facility] Address: [address] [place] [address] Result Comment: Adul t Male and Female Nephrotic Criteria: <30 mg/g is considered normal to mildly increased 30-300 mg/g is considered moderately increased >300 mg/g is considered severely increased KDIGO. (2013). KDIGO 2012 Clinical Practice Guideline for the Evaluation and Management of Chronic Kidney Disease. Official Journal of the International Society of Nephrology, 3(1), 1-150. Performed By: #### 5 8410-2 #### [facility] CLIA [id number] [address] [place] [address] [place] Creatinine (U) [Mass/Vol] 92.8 mg/dL Normal 20.0-300.0 [facility] Comment on above: Order Comment: Speci men Type: BLOOD SPECIMEN [facility] Address: [address] [place] [address] Performed By: #### 5 8410-2 #### [facility] CLIA [id number] [address] ATTN [place] [id number] [facility] CONSULTon 01-23-2022 CONSULT HNO ID: [id number] Author: Collin Cheema DO Service: Hospital Medicine [...] not recall if he follows with the rollway man or not. The patient does report significant [...] quittin.8 Smokeless tobacco: Never Tobacco comments: Smokes [place] Vaping Use Vaping Use: Never used Substance [...] time a week.Disp: 4 EachRfl: 1 Insulin [place], Disposable, (COMFORT EZ PEN NEEDLES) 29 gauge x 1/21 Each once daily.Disp: 100 EachRfl: 3 blood sugar diagnostic (BLOOD GLUCOSE TEST) test izcdx0i/dayDisp: 100 StripRfl: 11 Blood-Glucose Meter monitoring kitFor monitoring sugars 3x/day (patient on insulin)Disp: 1 EachRfl: 1 Lancets lancetsUse as instructed 3x/dayDisp: 100 EachRfl: 11 alcohol swabs (ALCOHOL PREP PADS)Apply 1 application to affected area as directed.Disp: 100 EachRfl: 3 Penicillins Physical Exam BP 132/75 Pulse 80 Temp 36.6 ?C (97.9 ?F) (Oral) Resp (more content not included)... [facility] NURSING PROGon 01-23-2022 NURSING PROG HNO ID: [id number] Author: Huong Black RN Service: Nursing Author [...] questioned re: depression and rating high/low/moderate--pt expreseed, I'm not even sure that I feel there's a difference between the depression and anxiety. Verbalized feeling that his depression and anxiety are 'almost one in the same'. Expressed, I can't figure it out though. Things just seem to set me off sometimes. Emotional support provided via 1:1. Accu-check before svcbtr=009--6 units Lispro insulin given per sliding scale. C/o lower abdominal discomfort and back pain--declined offerings of Tylenol--Nothing helps. Is calm--sitting in common area @ present time. Q15min safety rds continue. 2234--Compliant with HS meds--took 'whole' with water. Accu-check this SD=137; received 1 unit Lispro insulin per sliding [...] Bed alarm on. Q15min safety rds continue. [facility] NURSING PROG HNO ID: [id number] Author: Sloane Lanza RN Service: Behavioral Health [...] but refused to attend groups today, stating It's not for me. Med compliant, independent with ADL's, but is SBA for transfers, with a cane. Pt does ambulate the unit with a wheeled chair. [facility] NURSING PROG HNO ID: [id number] Author: Tanya Valdez RN Service: Nursing Author Type: Registered Nurse Type: Nursing Progress Note Filed: 01/23/2022 6:17 AM Note Text: Nursing Progress Note Patient Name: José Manuel Ashton Patient Location: [facility]/[id number] Daily Note: Assumed care of pt at [...] This note was completed by: Tanya Valdez [facility] ALLIED HEALTHon 01-22-2022 ALLIED HEALTH HNO ID: [id number] Author: Art Gordon Music Mary Service: Music [...] expressed interest in attending group therapy sessions. I'll try to be there. SIGNATURE: Art Gordon Music Therapist PATIENT NAME: José Manuel Ashton DATE: January 22, 2022 TIME: 1:11 PM [facility] CONSULTon 01-22-2022 CONSULT HNO ID: [id number] Author: Corky Rodarte MD Service: Urology Author Type: Physician Type: Consults Filed: 01/22/2022 5:58 PM Note Text: [facility] - Consultation JOSÉ MANUEL ASHTON : 1960 AGE: 61 SEX: M [facility]: [id number] [facility]: [facility] LOCATION: 6002 ATTENDING PHYSICIAN: Luis Carlos Short Jr., M.D. DATE OF SERVICE: 01/22/2022 TIME OF SERVICE: 11:09 AM CONSULTING PHYSICIAN: Corky Rodarte M.D. REQUESTING PHYSICIAN: 1. Luis Carlos Short Jr., M.D. 2. Dr. Olivas. REASON FOR THE CONSULTATION: BPH with lower urinary tract symptoms. BRIEF CLINICAL SUMMARY: This 61-year-old man is admitted to [facility] emergently on 01/18/2022 because of psychiatric problems, [...] gentleman in consultation. Corky Rodarte M.D. Urology JL:[id number] /[id number] Normal [facility] Comprehensive metabolic 2000 panelon 01-22-2022 Albumin [Mass/Vol] 3.2 g/dL Low 3.9-4.9 [facility] Comment on above: Order Comment: Speci men Type: BLOOD SPECIMENOrdering Facility: [facility] Address: [address] [place] [address] Performed By: #### 2 4323-8 ####[facility] [id number] [address] OF [facility] ALP [Catalytic activity/Vol] 103 U/L Normal 38-113 [facility] Comment on above: Order Comment: Speci men Type: BLOOD SPECIMENOrdering Facility: [facility] Address: [address] [place] [address] Performed By: #### 2 4323-8 ####[facility] [id number] [address] [place] ALT [Catalytic activity/Vol] 9 U/L Low 10-54 [facility] Comment on above: Order Comment: Speci men Type: BLOOD SPECIMENOrdering Facility: [facility] Address: [address] [place], [place] [address] Performed By: #### 2 4323-8 ####[facility] [id number] [place] [id number] [place] Anion gap [Moles/Vol] 10 mmol/L Normal 9-[address] [facility] Comment on above: Order Comment: Speci men Type: BLOOD SPECIMENOrdering Facility: [facility] Address: [address] [place] [address] Performed By: #### 2 4323-8 ####[facility] [id number] [address] [place], [place] [id number] [place] AST [Catalytic activity/Vol] 10 U/L Low 14-40 [facility] Comment on above: Order Comment: Speci men Type: BLOOD SPECIMENOrdering Facility: [facility] Address: [address] [place] [address] Performed By: #### 2 4323-8 ####[facility] [id number] [place] [id number] [place] Bilirubin [Mass/Vol] 0.2 mg/dL Normal 0.2-1.3 [facility] Comment on above: Order Comment: Speci men Type: BLOOD SPECIMENOrdering Facility: [facility] Address: [address] [place], [place] [address] Performed By: #### 2 4323-8 ####[facility] LABORATORYCLIA [id number] [place] [id number] [place] Calcium [Mass/Vol] 9.2 mg/dL Normal 8.5-10.2 [facility] Comment on above: Order Comment: Speci men Type: BLOOD SPECIMENOrdering Facility: [facility] Address: [address] [place], [place] [address] Performed By: #### 2 4323-8 ####[facility] LABORATORYCLIA [id number] [place] [id number] [facility] [place] Chloride [Moles/Vol] 104 mmol/L Normal 97-105 [facility] Comment on above: Order Comment: Speci men Type: BLOOD SPECIMENOrdering Facility: [facility] Address: [address] [place] [address] Performed By: #### 2 4323-8 ####S[facility]ISM LABORATORYCLIA [id number] [place] [address] [place] CO2 [Moles/Vol] 26 mmol/L Normal 22-30 [facility] Comment on above: Order Comment: Speci men Type: BLOOD SPECIMENOrdering Facility: [facility] Address: [address] [place] [address] Performed By: #### 2 4323-8 ####[facility]ISM LABORATORYCLIA [id number] [address] [place] Creatinine [Mass/Vol] 1.26 mg/dL High 0.73-1.[address] [facility] Comment on above: Order Comment: Speci men Type: BLOOD SPECIMENOrdering Facility: [facility] Address: [address] [place] [address] Performed By: #### 2 4323-8 ####S[facility] LABORATORYCLIA [id number] [address] ESTIMATED GLOMERULAR FILTRATION RATE 64 mL/min/1.73m??? Normal >=60 [facility] Comment on above: Order Comment: Speci men Type: BLOOD SPECIMENOrdering Facility: [facility] Address: [address] [place] [address] Result Comment: Breanne mated Glomerular Filtration Rate [...] actual GFR. Performed By: #### 2 4323-8 ####S[facility]ISM LABORATORYCLIA [id number] [place] [id number] [place] Glucose [Mass/Vol] 141 mg/dL High 74-99 [facility] Comment on above: Order Comment: Speci men Type: BLOOD SPECIMENOrdering Facility: [facility] Address: [address] [place] [address] Result Comment: The [place] Diabetes Association (ADA) provides guidance for cutoff [...] Standards of Medical Care in Diabetes 2016, [place] [employer]. Diabetes Care. 2016.39(Suppl 1). Performed By: #### 2 4323-8 ####[facility]ISM LABORATORYCLIA [id number] [place] [id number] [place] Potassium [Moles/Vol] 4.2 mmol/L Normal 3.7-5.[address] [facility] Comment on above: Order Comment: Speci men Type: BLOOD SPECIMENOrdering Facility: [facility] Address: [address] [place] [address] Performed By: #### 2 4323-8 ####S[facility] LABORATORYCLIA [id number] [place] [id number] [place] Protein [Mass/Vol] 5.7 g/dL Low 6.3-8.0 [facility] Comment on above: Order Comment: Speci men Type: BLOOD SPECIMENOrdering Facility: [facility] Address: [address] [place] [address] Performed By: #### 2 4323-8 ####S[facility] LABORATORYCLIA [id number] [address] Sodium [Moles/Vol] 140 mmol/L Normal 136-144 [facility] Comment on above: Order Comment: Speci men Type: BLOOD SPECIMENOrdering Facility: [facility] Address: [address] [place] [address] Performed By: #### 2 4323-8 ####SABIANISM LABORATORYCLIA [id number] [address] Urea nitrogen [Mass/Vol] 22 mg/dL Normal 9-24 [facility] Comment on above: Order Comment: Speci men Type: BLOOD SPECIMENOrdering Facility: [facility] Address: [address] [place] [address] Performed By: #### 2 4323-8 ####SABIANISM LABORATORYCLIA [id number] [address] NURSING PROGon 01-22-2022 NURSING PROG HNO ID: [id number] Author: Myrna Rowland RN Service: ? Author Type: Registered Nurse Type: Nursing Progress Note Filed: 01/22/2022 7:05 PM Note Text: Nursing Progress Note Patient Name: José Manuel Ashton Patient Location: [address]- Daily Note: 0700 - Assumed care of patient. 0850 - Patient reports 7/10 back and abdomen pain, 7/10 anxiety, 0/10 depression and says that he slept alright. He denied having SI/HI and AV/H. He [...] (Oral) Resp 16 Ht 177.8 cm (5' 10) Wt 115.7 kg (255 lb 0.3 oz) SpO2 95% BMI 36.59 kg/m? Blood glucose @0839 is 122. Blood glucose @1159 is 200. Blood glucose @1543 is 291. This note was completed by: Myrna Rowland [facility] NURSING PROG HNO ID: [id number] Author: Natasha Levine RN Service: Nursing Author Type: Registered Nurse Type: Nursing Progress Note Filed: 01/22/2022 6:48 AM Note Text: Nursing Progress Note Patient Name: José Manule Ashton Patient Location: [id number]- Daily Note: 5025-2953 A/O x 3 and out in common [...] unit. Denies SI, HI, and AVH. Stated, The staff on the 4th floor thought I needed to come here for depression. Admitted, I guess because I'm always in pain- I probably am a little depressed, but I am definitely frustrated and angry because of it. In control and cooperative with care. No prns and safety maintained. 0630- Slept fairly well overnight. Makes needs known and follows directions. Cooperative with fall precautions and safety maintained. Sleep hours= 6 This note was completed by: Natasha Levine [facility] Bacteria Ur Culton 2 Bacteria identified Cx Nom (U) ORGANISM ID: 1 <10,000 CFU/ml Mixed microbiota No further workup. Mixed microbiota can be due to???urine???contamination with skin bacteria at time of collection or presence of a long-term urinary catheter. If a new culture is needed, please consider re-education of the patient on proper midstream collection technique or straight catheterization for???urine???collection. [facility] Comment on above: Performed By: #### 6 30-4 ####[facility] LABCLIA [id number] [place] [address] [place] CASE MGT INIT ASSESon 2021 CASE MGT INIT SANDOVAL HNO ID: [id number] Author: OSCAR Lopez Service: Social Work Author Type: Forensic Sergeant Type: Care Mgt Initial Assessment Filed: 01/21/2022 11:16 AM Note Text: BEHAVIORAL HEALTH SOCIAL WORK/CARE MANAGEMENT ASSESSMENT AND DISCHARGE PLAN SERVICE DATE: 01/21/2022 SERVICE TIME: 9:14 AM Reason for Admission: Per intake note on 01/19/2022: Nature of the crisis: depression leading to medication noncompliance Presenting Problem: José Manuel Ashton is a 61 year old male referred by [facility] for depression. Per Psych consult 01/19/2022 by Rafal Fuentes PA-C Mood is not good. Feels angry most of the days. Feels kind of anxious today. Vague about his depression. I probably need help. I don't want to go backwards. I'm going backwards. I don't know. I don't know what is going on. Endorses low motivation, low energy. Endorses sleep difficulties. Admits difficulties managing his medicine. Says his concentration is probably not very good. Endorses feeling overwhelmed: I don't know what is going on.... too many things with my health. I don't know if I will get better. When asked if he has wishes, states I don't know. He denies thoughts to hurt himself or end his life. Denies hallucinations. Pt was admitted medically on 01/17 for elevated glucose levels. Pt had stopped taking his medications. Given concerns for his depression to be affecting his quality of life and his ability to care for himself, voluntary admission to inpatient psychiatry recommended for further evaluation and care. Patient is agreeable. Per ED vineyard worker Roxanne MOORE on 01/17 This medical underwriter assessed patient via face to face who presents alert and oriented x 4, appears overweight and disheveled, speech is within normal limits appropriate to tone, prosody, melody, phonetic, and syntax, thought process is linear and organized, difficulty concentrating at times, and a poor historian,, mood is depressed with flat affect, with impaired judgement and insight into illness. Patient reports that his Apprentice Pattern Maker sent him to the emergency room for [...] have too many things going on?. This medical underwriter inquires if patient believes he will get [...] that he has been forced to a fdc in the past for not caring for himself. This medical underwriter discussed with patient potential for a [facility] nurse to come into home to assist with his medication management to ensure he is caring for self properly and taking medications. Patient has been calm and cooperative in the ED with no restraints or medications administered. Legal Status: Voluntary Important Contacts: Meche Sanders (sister) [phone] Marek Ashton (Brother) [phone] Does the patient/hospital sales representative consent to contact with the above [...] Manuel Ashton was born and raised in [place], [place] by his mother and father. Pt is the youngest of 17 children. 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 Support System: L (more content not included)... [facility] CONSULTon 01-21-2022 CONSULT HNO ID: [id number] Author: Philip Mayfield DPM Service: Podiatry Author [...] quittin.8 Smokeless tobacco: Never Tobacco comments: Smokes [place] Vaping Use Vaping Use: Never used Substance [...] 4 Each, Rfl: 1, Not Taking Insulin [place], Disposable, (COMFORT EZ PEN NEEDLES) 29 gauge x 1/2, 1 Each once daily., Disp: 100 Each, [...] docusate sodiu (more content not included)... Normal [facility] HAV IgM Ser Qlon 01-21-2022 HAV IgM Ql (S) Negative Normal Negative [facility] Comment on above: Order Comment: Speci men Type: BLOOD SPECIMEN [facility] Address: [address] [place] [address] Result Comment: No e vidence of recent infection with Hepatitis A virus. Performed By: #### 5 8410-2 #### [facility] CLIA [id number] [address] [place] [address] [facility] HBV core IgM Ser Qlon 2021 HBV core IgM Ql (S) Negative Normal Negative [facility] Comment on above: Order Comment: Speci men Type: BLOOD SPECIMEN [facility] Address: [address] [place] [address] Result Comment: No e vidence of recent infection with Hepatitis B virus. Should recent infection be suspected, repeat testing may be considered 3-4 weeks after this draw. Performed By: #### 5 8410-2 #### [facility] CLIA [id number] [address] [place] [address] HBV surface Ab IA Ql (S)on 1 HBV surface Ag Ql (S) Negative Normal Negative [facility] Comment on above: Order Comment: Speci [facility] Type: BLOOD SPECIMEN [facility] Address: [address] [place] [address] Performed By: #### 5 8410-2 #### [facility] CLIA [id number] [facility] [address] [place] HCV RNA SerPl BETO+probe-aCnc on 01-21-2022 HCV RNA BETO+probe Qn Not detected Normal HCV RNA not detected by PCR. [facility] Comment on above: Order Comment: [facility] Type: BLOOD SPECIMENOrdering Facility: [facility] Address: [address] [place] [address] Performed By: #### 1 1011-4 ####[facility] LABCLIA [id number] [facility] [id number] HISTORY PHYSICALon HISTORY PHYSICAL HNO ID: [id number] Author: Yarely Dejesus MD Service: Psychiatry Author [...] mood symptoms, temper. Reports cannabis as being only thing that helps my pain and helps settle him. Resists exploration of motivations for his non-adherence. Encourage group activity, offer venlafaxine trial as per C/L service (no apparent cardiac or other contraindications), and trial low dose depakote for impulsivity, mood instability, irritability, anger dyscontrol. He reports a trial of duloxetine for a couple months as being without benefit for mood or pain symptoms. No SI/HI/ appreciated on exam and no evidence delusions, hallucinations nor manic features. Aim link with psychotherapy and pain management post-discharge. Another attempt at diabetes education with nutrition in house, and outpatient follow up with educator, garnisher could be helpful. Luis Carlos Short Jr, [...] Psych consult 01/19/2022 by Rafal Fuentes PA-C Mood is not good. Feels angry most of the days. Feels kind of anxious today. Vague about his depression. I probably need help. I don't want to go backwards. I'm going backwards. I don't know. I don't know what is going on. Endorses low motivation, low energy. Endorses sleep difficulties. Admits difficulties managing his medicine. Says his concentration is probably not very good. Endorses feeling overwhelmed: I don't know what is going on.... too many things with my health. I don't know if I will get better. When asked if he has wishes, states I don't know. He denies thoughts to hurt himself or end his life. Denies hallucinations. Pt was admitted medically on 01/17 for elevated glucose levels. Pt had stopped taking his medications. Given concerns for his depression to be affecting his quality of life and his ability to care for himself, voluntary admission to inpatient psychiatry recommended for further evaluation and care. Patient is agreeable. Per ED vineyard worker Roxanne MOORE on 01/17 This medical underwriter assessed patient via face to face who presents alert and oriented x 4, appears overweight and disheveled, speech is within normal limits appropriate to tone, prosody, melody, phonetic, and syntax, thought process is linear and organized, difficulty concentrating at times, and a poor historian,, mood is depressed with flat affect, with impaired judgement and insight into illness. Patient reports that his Apprentice Pattern Maker sent him to the emergency room for [...] have too many things going on?. This medical underwriter inquires if patient believes he will get [...] denies any ho (more content not included)... [facility] NURSING PROGon 01-21-2022 NURSING PROG HNO ID: [id number] Author: Huong Glass RN Service: Nursing Author Type: Counselor Type: Nursing Progress Note Filed: 01/21/2022 7:35 PM Note Text: [id number] Assumed care of pt sitting on edge [...] unsteady gait physical therapy consult in. This medical underwriter provided pt with wheelchair and front wheeled walker. Medication compliant whole with water. Accu checks AC AND HS with sliding scale coverage. Continent of bowel and bladder set up for ADL's. Calm and cooperative with care, pleasant and social with peers. Participated in group activities. Security notified of personal vehicle in parking lot. Safety precautions maintained. [facility] Reagin and Treponema pallidu m IgG and IgM [Interp]on 01-21-2022 SYPHILIS INTERPRETATION Cannot exclude recent Treponemal infection if specimen collected within 7-10 days after appearance of suspect lesions or 2-3 weeks after an exposure. Clinical correlation is required. [facility] Comment on above: Order Comment: Speci men Type: BLOOD SPECIMEN [facility] Address: [address] [place] [address] Performed By: #### 5 8410-2 #### [facility] CLIA [id number] [address] [place] [address] [place] T. pallidum IgG+IgM IA Ql (S) Non-Reactive Normal Nonreactive [facility] Comment on above: Order Comment: Speci men Type: BLOOD SPECIMEN [facility] Address: [address] [place] [address] Performed By: #### 5 8410-2 #### [facility] CLIA [id number] [address] [facility] [place] [address] [facility] THERAPY NTon 01-21-2022 THERAPY NT HNO ID: [id number] Author: Prasanth Jeronimo, PT Service: Physical Therapy Author Type: Physical Therapist Type: Therapy (PT/OT/Speech/Resp) Filed: 01/21/2022 2:32 PM Note Text: Physical Therapy Evaluation SERVICE DATE: 01/21/2022 SERVICE TIME: 1341 to 1408 ROOM: [place] [address] Recommended Discharge Disposition: Subacute/SNF Recommended Discharge Disposition [...] emergency department at the direction of his chemical strength tester, Dr. Kennedy for psych eval Relevant Past [...] No falls this past year. Patient Report: What the hell am I doing here? They sent me to the [facility] [employer] CURRENT FUNCTIONAL STATUS: Most recent performance Current [...] Patient /Caregiver Goal (more content not included)... [facility] URINALYSIS, REFLEX MICROSCOP ICon 01-21-2022 Bacteria LM.HPF (Urine sed) [#/Area] Rare Abnormal None Seen [facility] Comment on above: Order Comment: Speci men Type: URINE SPECIMENOrdering Facility: [facility] Address: [address] [place] [address] Performed By: #### L [id number] ####S[facility]IAN[facility] LABORATORYCLIA [id number] [address] [place], [place] [id number] [place] Bilirubin Ql (U) Negative Normal Negative [facility] Comment on above: Order Comment: Speci men Type: URINE SPECIMENOrdering Facility: [facility] Address: [address] [place] [address] Performed By: #### L [id number] ####[facility] LABORATORYCLIA [id number] [address] [place] Clarity (Unsp spec) Clear Normal Clear [facility] Comment on above: Order Comment: Speci men Type: URINE SPECIMENOrdering Facility: [facility] Address: [address] [place] [address] Performed By: #### L [id number] ####[facility] LABORATORYCLIA [id number] [place] [id number] [place] Color (U) Yellow Normal Yellow [facility] Comment on above: Order Comment: Speci men Type: URINE SPECIMENOrdering Facility: [facility] Address: [address] [place] [address] Performed By: #### L [id number] ####S[facility] LABORATORYCLIA [id number] [place] [id number] [place] Glucose Test strip (U) [Mass/Vol] 2+ Abnormal Negative [facility] Comment on above: Order Comment: Speci men Type: URINE SPECIMENOrdering Facility: [facility] Address: [address] [place] [address] Performed By: #### L [id number] ####S[facility] LABORATORYCLIA [id number] [address] [place] [address] [place] [address] [place] Hemoglobin Ql (U) 1+ Abnormal Negative [facility] Comment on above: Order Comment: Speci men Type: URINE SPECIMENOrdering Facility: [facility] Address: [address] [place] [address] Performed By: #### L [id number] ####S[facility] LABORATORYCLIA [id number] [address] [place], [place] [address] [place] Ketones Ql (U) Trace Abnormal Negative [facility] Comment on above: Order Comment: Speci men Type: URINE SPECIMENOrdering Facility: [facility] Address: [address] [place] [address] Performed By: #### L [id number] ####S[facility] LABORATORYCLIA [id number] [address] [place], [place] [address] [place] Leukocyte esterase Test strip Ql (U) Negative Normal Negative [facility] Comment on above: Order Comment: Speci men Type: URINE SPECIMENOrdering Facility: [facility] Address: [address] [place] [address] Performed By: #### L [id number] ####[facility] LABORATORYCLIA [id number] [address] [place], [place] [address] [place] Nitrite Ql (U) Negative Normal Negative [facility] Comment on above: Order Comment: Speci men Type: URINE SPECIMENOrdering Facility: [facility] Address: [address] [place] [address] Performed By: #### L [id number] ####[facility] LABORATORYCLIA [id number] [address] [place], [place] [address] [place] pH (U) 5.5 [pH] Normal 5.0-8.0 [facility] Comment on above: Order Comment: Speci men Type: URINE SPECIMENOrdering Facility: [facility] Address: [address] [place] [address] Performed By: #### L [id number] ####[facility] LABORATORYCLIA [id number] [address] Protein (U) [Mass/Vol] Normal [facility] Comment on above: Order Comment: Speci men Type: URINE SPECIMENOrdering Facility: [facility] Address: [address] [place] [address] Result Comment: Visi ble blood causes falsely elevated results for analyte Protein. Due to this limitation, Protein will not be reported for patients whose urine contains visible blood. Performed By: #### L [id number] ####S[facility] LABORATORYCLIA [id number] [place] [address] [place] RBC LM.HPF (Urine sed) [#/Area] 0-3 /HPF Normal 0-3 /HPF [facility] Comment on above: Order Comment: Speci men Type: URINE SPECIMENOrdering Facility: [facility] Address: [address] [place] [address] Performed By: #### L [id number] ####[facility] LABORATORYCLIA [id number] [place] [address] [place] Specific gravity (U) [Rel density] >=1.030 High 1.005-1.030 [facility] Comment on above: Order Comment: Speci men Type: URINE SPECIMENOrdering Facility: [facility] Address: [address] [place], [place] [address] Performed By: #### L [id number] ####[facility] LABORATORYCLIA [id number] [place] [id number] [place] Urobilinogen Ql (U) 0.2 EU/dL Normal 0.2-1.0 EU/dL [facility] Comment on above: Order Comment: Speci men Type: URINE SPECIMENOrdering Facility: [facility] Address: [address] [place] [address] Performed By: #### L [id number] ####[facility] LABORATORYCLIA [id number] [place] [id number] [place] WBC LM.HPF (Urine sed) [#/Area] 0-5 /HPF Normal 0-5 /HPF [facility] Comment on above: Order Comment: Speci men Type: URINE SPECIMENOrdering Facility: [facility] Address: [address] [place] [address] Performed By: #### L [id number] ####[facility] LABORATORYCLIA [id number] [place] [id number] [place] Basic metabolic 2000 panelon 01-20-2022 Anion gap [Moles/Vol] 8 mmol/L Low 9-[address] [facility] Comment on above: Order Comment: Speci men Type: BLOOD SPECIMEN [facility] Address: [address] [place] [address] Performed By: #### 5 8410-2 #### [facility] [place] [id number] [address] [place] [address] [place] Calcium [Mass/Vol] 9.1 mg/dL Normal 8.5-10.2 [facility] Comment on above: Order Comment: Speci men Type: BLOOD SPECIMEN [facility] Address: [address] [place] [address] Performed By: #### 5 8410-2 #### [facility] CLIA [id number] [address] [place] [id number] [place] Chloride [Moles/Vol] 103 mmol/L Normal 97-105 [facility] Comment on above: Order Comment: Speci men Type: BLOOD SPECIMEN [facility] Address: [address] [place] [address] Performed By: #### 5 8410-2 #### [facility] CLIA [id number] [address] [place], [place] [address] [place] CO2 [Moles/Vol] 27 mmol/L Normal 22-30 [facility] Comment on above: Order Comment: Brooksjonas vaughan Type: BLOOD SPECIMEN [facility] Address: [address] [place] [address] Performed By: #### 5 8410-2 #### [facility] CLIA [id number] [address] [place], [place] [address] [place] Creatinine [Mass/Vol] 1.10 mg/dL Normal 0.73-1.[address] [facility] Comment on above: Order Comment: Luz clement Type: BLOOD SPECIMEN [facility] Address: [address] [place] [address] Performed By: #### 5 8410-2 #### [facility]ITAL[facility] [id number] [facility] [place] [id number] [place] ESTIMATED GLOMERULAR FILTRATION RATE 76 mL/min/1.73m??? Normal >=60 [facility] Comment on above: Order Comment: Luz clement Type: BLOOD SPECIMEN [facility] Address: [address] [place] [address] Result Comment: Breanne mated Glomerular Filtration Rate [...] GFR. Performed By: #### 5 8410-2 #### [facility] CLIA [id number] [address] [place], [place] [address] [place] Glucose [Mass/Vol] 173 mg/dL High 74-99 [facility] Comment on above: Order Comment: Luz vaughan Type: BLOOD SPECIMEN [facility] Address: [address] [place] [address] Result Comment: The [place] Diabetes Association (ADA) provides guidance for cutoff [...] Standards of Medical Care in Diabetes 2016, [place] Diabetes Association. Diabetes Care. 2016.39(Suppl 1). Performed By: #### 5 8410-2 #### [facility] CLIA [id number] [address] [place] [address] [place] Potassium [Moles/Vol] 3.8 mmol/L Normal 3.7-5.[address] [facility] Comment on above: Order Comment: Luz vaughan Type: BLOOD SPECIMEN [facility] Address: [address] [place] [address] Performed By: #### 5 8410-2 #### [facility] CLIA [id number] [address] [place] [address] [place] Sodium [Moles/Vol] 138 mmol/L Normal 136-144 [facility] Comment on above: Order Comment: Luz vaughan Type: BLOOD SPECIMEN [facility] Address: [address] [place] [address] Performed By: #### 5 8410-2 #### [facility] CLIA [id number] [address] [place], [place] [address] [place] Urea nitrogen [Mass/Vol] 17 mg/dL Normal 9-24 [facility] Comment on above: Order Comment: Luz vaughan Type: BLOOD SPECIMEN [facility] Address: [address] [place] [address] Performed By: #### 5 8410-2 #### [facility] CLIA [id number] [address] [place], [place] [address] [place] CBC panel Auto (Bld)on 01-20 Erythrocyte distribution width (RBC) [Ratio] 12.8 % Normal 11.5-15.0 [facility] Comment on above: Order Comment: Speci men Type: BLOOD SPECIMENOrdering Facility: [facility] Address: [address] [place] [address] Performed By: #### 5 8410-2 ####[facility]ORYCLIA [id number] [address] Hematocrit (Bld) [Volume fraction] 41.1 % Normal 39.0-51.0 [facility] Comment on above: Order Comment: Speci men Type: BLOOD SPECIMENOrdering Facility: [facility] Address: [address] [place] [address] Performed By: #### 5 8410-2 ####[facility]ORYCLIA [id number] [address] Hemoglobin (Bld) [Mass/Vol] 13.8 g/dL Normal 13.0-17.0 [facility] Comment on above: Order Comment: Speci men Type: BLOOD SPECIMENOrdering Facility: [facility] Address: [address] [place] [address] Performed By: #### 5 8410-2 ####[facility]ORYCLIA [id number] [address] [place] MCH (RBC) [Entitic mass] 28.6 pg Normal 26.0-34.0 [facility] Comment on above: Order Comment: Speci men Type: BLOOD SPECIMENOrdering Facility: [facility] Address: [address] [place] [address] Performed By: #### 5 8410-2 ####[facility]ORY[facility] [id number] [address] [place] MCHC (RBC) [Mass/Vol] 33.6 g/dL Normal 30.5-36.[address] [facility] Comment on above: Order Comment: Speci men Type: BLOOD SPECIMENOrdering Facility: [facility] Address: [address] [place], [place] [address] Performed By: #### 5 8410-2 ####[facility]ORYCLIA [id number] [address] MCV (RBC) [Entitic vol] 85.1 fL Normal 80.0-100.0 [facility] Comment on above: Order Comment: Speci men Type: BLOOD SPECIMENOrdering Facility: [facility] Address: [address] [place], [place] [address] Performed By: #### 5 8410-2 ####[facility]ORY[facility]IA [id number] [address] [place] Nucleated RBC (Bld) [#/Vol] 10*3/uL Normal <0.01 [facility] Comment on above: Order Comment: Speci men Type: BLOOD SPECIMENOrdering Facility: [facility] Address: [address] [place], [place] [address] Performed By: #### 5 8410-2 ####[facility]ORYCLIA [id number] [place] [id number] [place] Platelet mean volume (Bld) [Entitic vol] 10.0 fL Normal 9.0-12.7 [facility] Comment on above: Order Comment: Speci men Type: BLOOD SPECIMENOrdering Facility: [facility] Address: [address] [place], [place] [address] Performed By: #### 5 8410-2 ####[facility]ORYCLIA [id number] [place] [id number] [place] Platelets (Bld) [#/Vol] 246 10*3/uL Normal 150-400 [facility] Comment on above: Order Comment: Speci men Type: BLOOD SPECIMENOrdering Facility: [facility] Address: [address] [place], [place] [address] Performed By: #### 5 8410-2 ####[facility]ORY[facility] [id number] [place] [id number] [facility] RBC (Bld) [#/Vol] 4.83 10*6/uL Normal 4.20-6.00 [facility] Comment on above: Order Comment: Speci men Type: BLOOD SPECIMENOrdering Facility: [facility] Address: [address] [place] [address] Performed By: #### 5 8410-2 ####[facility] [id number] [place] [id number] [facility] WBC (Bld) [#/Vol] 6.90 10*3/uL Normal 3.70-11.00 [facility] Comment on above: Order Comment: Speci men Type: BLOOD SPECIMENOrdering Facility: [facility] Address: [address] [place] [address] Performed By: #### 5 8410-2 ####[facility] [id number] [place] [id number] [facility] CNDSon 01-20-2022 CNDS HNO ID: [id number] Author: Kylah Orantes MD Service: ? Author Type: Physician Type: Discharge Summary Filed: 02/06/2022 12:28 PM Note Text: Internal Medicine discharge [facility] PATIENT NAME: José Manuel Ashton Discharge DATE: [...] (A) 4.2 - 5.6 % Final Comment: Location:[facility], [address] [place] [address], [facility] Point of care (POC) Hemoglobin A1c (HGBA1C) [...] specific diabetes management situations: The POC device aws consultant provides a normal range of 4.2% to 6.5% for the HGBA1C POC test. However, the [place] Diabetes Association guidelines indicate that patients with [...] 26 Units subcutaneously daily at bedtime. Insulin [place] (Disposable) 29 gauge x 1/2 Commonly known as: COMFORT EZ PEN NEEDLES [...] one time a week. Kylah Orantes MD [facility] Lipid 1996 panelon 2 Cholesterol [Mass/Vol] 260 mg/dL High <200 [facility] Comment on above: Order Comment: Speci men Type: BLOOD SPECIMENOrdering Facility: [facility] Address: [address] [place] [address] Result Comment: <200 mg/dL, Desirable 200-239 mg/dL, Borderline high >239 mg/dL, High Performed By: #### 2 4331-1 ####[facility]IA [id number] [address] Cholesterol in HDL [Mass/Vol] 40 mg/dL Normal >39 [facility] Comment on above: Order Comment: Speci [facility] Type: BLOOD SPECIMENOrdering Facility: [facility] Address: [address] [place] [address] Result Comment: 40-5 9 mg/dL, Acceptable >59 mg/dL, High: Negative risk factor for coronary heart disease <40 mg/dL, Low: Positive risk factor for coronary heart disease Performed By: #### 2 4331-1 ####[facility]ORYCLIA [id number] [address] [facility] Cholesterol in LDL [Mass/Vol] 162 mg/dL High <100 [facility] Comment on above: Order Comment: Speci men Type: BLOOD SPECIMENOrdering Facility: [facility] Address: [address] [place] [address] Result Comment: <100 mg/dL, Optimal 100-129 mg/dL, Near optimal/above optimal 130-159 mg/dL, Borderline high 160-189 mg/dL, High >189 mg/dL, Very high Secondary prevention optimal LDL Cholesterol levels are recommended to be < 70 mg/dL Performed By: #### 2 4331-1 ####[facility]CLIA [id number] [address] [facility] Cholesterol in LDL/Cholesterol in HDL [Mass ratio] 4.05 {ratio} High <2.54 [facility] Comment on above: Order Comment: Speci men Type: BLOOD SPECIMENOrdering Facility: [facility] Address: [address] [place] [address] Result Comment: Refe rence: 1. National Cholesterol Education Program ATP III Guideline At-A-Glance Quick Desk Reference: National Heart, Lung, and Blood [place]. National Institutes of Health. 2001: NIH Publication No. 01-3305. 2. An International Atherosclerosis Society position paper: global recommendations for the management of dyslipidemia: executive summary, Atherosclerosis. 2014: 232(2):410-413. Performed By: #### 2 4331-1 ####[facility]CLIA [id number] [address] [place] Cholesterol in VLDL [Mass/Vol] 58 mg/dL High <30 [facility] Comment on above: Order Comment: Speci men Type: BLOOD SPECIMENOrdering Facility: [facility] Address: [address] [place] [address] Performed By: #### 2 4331-1 ####[facility]ORYCLIA [id number] [place] [id number] [place] Cholesterol non HDL [Mass/Vol] 220 mg/dL High <130 [facility] Comment on above: Order Comment: Speci men Type: BLOOD SPECIMENOrdering Facility: [facility] Address: [address] [place] [address] Result Comment: <130 mg/dL, Optimal 130-159 mg/dL, Near optimal/above optimal 160-189 mg/dL, Borderline high 190-219 mg/dL, High >219 mg/dL, Very high Secondary prevention optimal non HDL Cholesterol levels are recommended to be <100 mg/dL Performed By: #### 2 4331-1 ####[facility]ORYCLIA [id number] [place] [id number] [facility] Cholesterol.total/Cho lesterol in HDL [Mass ratio] 6.50 {ratio} High <5.10 [facility] Comment on above: Order Comment: Speci men Type: BLOOD SPECIMENOrdering Facility: [facility] Address: [address] [place] [address] Performed By: #### 2 4331-1 ####[facility]CLIA [id number] [address] FASTING TIME Normal [facility] Comment on above: Order Comment: Speci men Type: BLOOD SPECIMENOrdering Facility: [facility] Address: [address] [place] [address] Result Comment: Unkn own Performed By: #### 2 4331-1 ####[facility]CLIA [id number] [address] Triglyceride [Mass/Vol] 291 mg/dL High <150 [facility] Comment on above: Order Comment: Speci men Type: BLOOD SPECIMENOrdering Facility: [facility] Address: [address] [place] [address] Result Comment: <150 mg/dL, Normal 150-199 mg/dL, Borderline high 200-499 mg/dL, High >499 mg/dL, Very high Performed By: #### 2 4331-1 ####[facility] [id number] [place] [id number] [facility] NURSING PROGon 01-20-2022 NURSING PROG HNO ID: [id number] Author: Keyla Trammell RN Service: Nursing Author Type: Registered Nurse Type: Nursing Progress Note Filed: 01/21/2022 7:01 AM Note Text: Nursing Progress note: ([id number]) Start of shift there was an order to transfer Patient to 6D. Pt is AANDOx3. Start of shift Pt seen sitting at the edge of his bed, appears disheveled and withdrawn. Pt has poor eye contact and looks down at the ground while talking with this medical underwriter.Pt reports feeling angry and frustrated that he is unable to care for himself like he used too. Reports feeling overwhelmed having to keep up with his medications and doctors appointments. Pt c/o chronic generalized pain, but declined pain medication states smoking blunts is the only thing that helps. Pt [...] belongings were transferred to in stable condition. [facility] NURSING PROG HNO ID: [id number] Author: Chele Mcginnis RN Service: Nursing Author [...] losing his balance. Spoke with my nurse it application development manager to possibly get the patient transferred to . After speaking with clinical nurse it application development manager she recommended transfer to geriatric psych unit. Nature of the crisis: depression leading to medication noncompliance Presenting Problem: José Manuel Ashton is a 61 year old male referred by [facility] for depression. Per Psych consult 01/19/2022 by Rafal Fuentes PA-C Mood is not good. Feels angry most of the days. Feels kind of anxious today. Vague about his depression. I probably need help. I don't want to go backwards. I'm going backwards. I don't know. I don't know what is going on. Endorses low motivation, low energy. Endorses sleep difficulties. Admits difficulties managing his medicine. Says his concentration is probably not very good. Endorses feeling overwhelmed: I don't know what is going on.... too many things with my health. I don't know if I will get better. When asked if he has wishes, states I don't know. He denies thoughts to hurt himself or end his life. Denies hallucinations. Pt was admitted medically on 01/17 for elevated glucose levels. Pt had stopped taking his medications. Given concerns for his depression to be affecting his quality of life and his ability to care for himself, voluntary admission to inpatient psychiatry recommended for further evaluation and care. Patient is agreeable. Per ED BH vineyard worker Roxanne MOORE on 01/17 This medical underwriter assessed patient via face to face who presents alert and oriented x 4, appears overweight and disheveled, speech is within normal limits appropriate to tone, prosody, melody, phonetic, and syntax, thought process is linear and organized, difficulty concentrating at times, and a poor historian,, mood is depressed with flat affect, with impaired judgement and insight into illness. Patient reports that his Apprentice Pattern Maker sent him to the emergency room for [...] have too many things going on?. This medical underwriter inquires if patient believes he will get [...] that he has been forced to a fdc in the past for not caring for himself. This medical underwriter discussed with patient potential for a [facility] nurse to come into home to assist with his medication management to ensure he is caring for self properly and taking medications. Patient has been calm and cooperative in the ED with no restraints or medications administered. [facility] H[facility]: [id number] Author: RT Vishal(Neil) Service: ? Author Type: [...] RT Vishal(R) January 19, 2022 3:45 AM [facility] Bacteria Ur Culton 2 Bacteria identified Cx Nom (U) CULTURE, URINE: No growth (<1,000 CFU/ml) Normal [facility] Comment on above: Performed By: #### 6 30-4 ####[facility] LABCLIA [id number] [facility] [place] [address] [place] Basic metabolic 2000 panelon 01-19-2022 Anion gap [Moles/Vol] 10 mmol/L Normal 9-[address] [facility] Comment on above: Order Comment: Speci men Type: BLOOD SPECIMENOrdering Facility: [facility] Address: [address] [place] [address] Performed By: #### 1 9123-9, 57768-8 ####[facility]ORYCLIA [id number] [place] [address] [place] Calcium [Mass/Vol] 9.1 mg/dL Normal 8.5-10.2 [facility] Comment on above: Order Comment: Speci men Type: BLOOD SPECIMENOrdering Facility: [facility] Address: [address] [place] [address] Performed By: #### 1 9123-9, 32784-1 ####[facility]ORYCLIA [id number] [place] [address] [place] Chloride [Moles/Vol] 102 mmol/L Normal 97-105 [facility] Comment on above: Order Comment: Speci men Type: BLOOD SPECIMENOrdering Facility: [facility] Address: [address] [place], [place] [address] Performed By: #### 1 9123-9, 82286-0 ####[facility]ORYCLIA [id number] [place] [id number] [place] CO2 [Moles/Vol] 27 mmol/L Normal 22-30 [facility] Comment on above: Order Comment: Speci men Type: BLOOD SPECIMENOrdering Facility: [facility] Address: [address] [place], [place] [address] Performed By: #### 1 9123-9, 58162-0 ####[facility]ORYCLIA [id number] [address] [address] [place] Creatinine [Mass/Vol] 1.34 mg/dL High 0.73-1.[address] [facility] Comment on above: Order Comment: Luz clement Type: BLOOD SPECIMENOrdering Facility: [facility] Address: [address] [place] [address] Performed By: #### 1 9123-9, 70117-7 ####[facility]ORYCLIA [id number] [place] [id number] [place] ESTIMATED GLOMERULAR FILTRATION RATE 60 mL/min/1.73m??? Normal >=60 [facility] Comment on above: Order Comment: Luz vaughan Type: BLOOD SPECIMENOrdering Facility: [facility] Address: [address] [place] [address] Result Comment: Breanne mated Glomerular Filtration Rate [...] actual GFR. Performed By: #### 1 9123-9, 58674-9 ####[facility]ORYCLIA [id number] [place] [id number] [place] Glucose [Mass/Vol] 332 mg/dL High 74-99 [facility] Comment on above: Order Comment: Luz clement Type: BLOOD SPECIMENOrdering Facility: [facility] Address: [address] [place], [place] [address] Result Comment: The [place] Diabetes Association (ADA) provides guidance for cutoff [...] Standards of Medical Care in Diabetes 2016, [place] [employer]. Diabetes Care. 2016.39(Suppl 1). Performed By: #### 1 9123-9, 15972-5 ####[facility]ORYCLIA [id number] [place] [id number] [place] Potassium [Moles/Vol] 5.0 mmol/L Normal 3.7-5.[address] [facility] Comment on above: Order Comment: Speci men Type: BLOOD SPECIMENOrdering Facility: [facility] Address: [address] [place] [address] Performed By: #### 1 9123-9, 04363-2 ####[facility]ORYCLIA [id number] [place] [id number] [place] Sodium [Moles/Vol] 139 mmol/L Normal 136-144 [facility] Comment on above: Order Comment: Speci men Type: BLOOD SPECIMENOrdering Facility: [facility] Address: [address] [place] [address] Performed By: #### 1 9123-9, 74320-0 ####[facility]ORYCLIA [id number] [place] [id number] [place] Urea nitrogen [Mass/Vol] 21 mg/dL Normal 9-24 [facility] Comment on above: Order Comment: Speci men Type: BLOOD SPECIMENOrdering Facility: [facility] Address: [address] [place] [address] Performed By: #### 1 9123-9, 82047-0 ####[facility]ORYCLIA [id number] [place] [id number] [place] CBC panel Auto (Bld)on 01-19 Erythrocyte distribution width (RBC) [Ratio] 12.9 % Normal 11.5-15.0 [facility] Comment on above: Order Comment: Speci men Type: BLOOD SPECIMENOrdering Facility: [facility] Address: [address] [place], [place] [address] Performed By: #### 5 8410-2 ####[facility]ORATORYCLIA [id number] [address] [place] [address] [place] Hematocrit (Bld) [Volume fraction] 42.6 % Normal 39.0-51.0 [facility] Comment on above: Order Comment: Speci men Type: BLOOD SPECIMENOrdering Facility: [facility] Address: [address] [place] [address] Performed By: #### 5 8410-2 ####[facility]ORATORYCLIA [id number] [address] [place] Hemoglobin (Bld) [Mass/Vol] 14.1 g/dL Normal 13.0-17.0 [facility] Comment on above: Order Comment: Speci men Type: BLOOD SPECIMENOrdering Facility: [facility] Address: [address] [place] [address] Performed By: #### 5 8410-2 ####[facility] LABORATORYCLIA [id number] [place] [id number] [place] MCH (RBC) [Entitic mass] 28.3 pg Normal 26.0-34.0 [facility] Comment on above: Order Comment: Speci men Type: BLOOD SPECIMENOrdering Facility: [facility] Address: [address] [place], [place] [address] Performed By: #### 5 8410-2 ####[facility] LABORATORYCLIA [id number] [place] [id number] [place] MCHC (RBC) [Mass/Vol] 33.1 g/dL Normal 30.5-36.[address] [facility] Comment on above: Order Comment: Speci men Type: BLOOD SPECIMENOrdering Facility: [facility] Address: [address] [place], [place] [address] Performed By: #### 5 8410-2 ####[facility] LABORATORYCLIA [id number] [address] [place], [place] [address] [place] [facility] MCV (RBC) [Entitic vol] 85.4 fL Normal 80.0-100.0 [facility] Comment on above: Order Comment: Speci men Type: BLOOD SPECIMENOrdering Facility: [facility] Address: [address] [place], [place] [address] Performed By: #### 5 8410-2 ####[facility] LABORATORYCLIA [id number] [address] [place] [address] [place] Nucleated RBC (Bld) [#/Vol] 10*3/uL Normal <0.01 [facility] Comment on above: Order Comment: Speci men Type: BLOOD SPECIMENOrdering Facility: [facility] Address: [address] [place], [place] [address] Performed By: #### 5 8410-2 ####[facility] LABORATORYCLIA [id number] [place] [id number] [place] Platelet mean volume (Bld) [Entitic vol] 10.0 fL Normal 9.0-12.7 [facility] Comment on above: Order Comment: Speci men Type: BLOOD SPECIMENOrdering Facility: [facility] Address: [address] [place], [place] [address] Performed By: #### 5 8410-2 ####[facility] LABORATORYCLIA [id number] [address] [place], [place] [address] [place] Platelets (Bld) [#/Vol] 244 10*3/uL Normal 150-400 [facility] Comment on above: Order Comment: Speci men Type: BLOOD SPECIMENOrdering Facility: [facility] Address: [address] [place], [place] [address] Performed By: #### 5 8410-2 ####[facility] LABORATORYCLIA [id number] [place] [id number] [facility] RBC (Bld) [#/Vol] 4.99 10*6/uL Normal 4.20-6.00 [facility] Comment on above: Order Comment: Speci men Type: BLOOD SPECIMENOrdering Facility: [facility] Address: [address] [place] [address] Performed By: #### 5 8410-2 ####[facility] LABORATORYCLIA [id number] [place] [id number] [facility] WBC (Bld) [#/Vol] 6.42 10*3/uL Normal 3.70-11.00 [facility] Comment on above: Order Comment: Speci men Type: BLOOD SPECIMENOrdering Facility: [facility] Address: [address] [place] [address] Performed By: #### 5 8410-2 ####[facility] LABORATORYCLIA [id number] [place] [id number] [facility] CONSULT PROGon 01-19-2022 CONSULT PROG HNO ID: [id number] Author: Rafal Carroll PA-C Service: Psychiatry Author Type: Physician Vehicle Washer Type: Consult Progress Note Filed: 01/19/2022 2:51 PM Note Text: CL FOLLOW UP - PSYCHIATRY CONSULTATION PROGRESS NOTE SERVICE DATE: January 19, 2022 SERVICE TIME: 2:00 PM PRESENT HISTORY: Mood is not good. Feels angry most of the days. Feels kind of anxious today. Vague about his depression. I probably need help. I don't want to go backwards. I'm going backwards. I don't know. I don't know what is going on. Endorses low motivation, low energy. Endorses sleep difficulties. Admits difficulties managing his medicine. Says his concentration is probably not very good. Endorses feeling overwhelmed: I don't know what is going on.... too many things with my health. I don't know if I will get better. When asked if he has wishes, states I don't know. He denies thoughts to hurt himself or [...] 33 Units SUBCUTANEOUS AT BEDTIME Teresa Diego APRN.BARREL PAINTER atropine 0.5 mg injection 0.5 mg INTRAVENOUS PRN Radha Mack APRN.BARREL PAINTER NaCl 0.9% iv flush bag 20 mL INTRAVENOUS PRN Radha Mack APRN.BARREL PAINTER sodium chloride 0.9 % (flush) 3-5 mL (BD POSIFLUSH) 3-5 mL INTRAVENOUS q 12 H Radha Mack APRN.BARREL PAINTER 5 mL at 01/18/222014 aluminum-magnesium hydroxide-simethicone 200-200-20 mg/5 mL 30 mL (MAALOX,MYLANTA,MAG-AL PLUS) 30 mL ORAL DAILY PRN Radha Mack APRN.BARREL PAINTER acetaminophen 650 mg tab(s) (TYLENOL) 650 mg ORAL q 6 H PRN Radha Mack APRN.BARREL PAINTER 650 mg at 01/18/22 0818 insulin lispro injection (rapid acting) (ADMELOG) SUBCUTANEOUS AT BEDTIME Radha Mack APRN.BARREL PAINTER 2 Units at 01/18/22 0123 hydrALAZINE 10 mg injection (APRESOLINE) 10 mg INTRAVENOUS q 6 H PRN Radha Mack APRN.BARREL PAINTER lisinopril 20 mg tab(s) (ZESTRIL, PRINIVIL) 20 mg ORAL DAILY Radha Mack APRN.BARREL PAINTER 20 mg at 01/19/22 0848 tamsulosin 0.4 mg cap(s) (FLOMAX) 0.4 mg ORAL AT BEDTIME Radha Mack APRN.BARREL PAINTER 0.4 mg at 01/18/222014 insulin lispro injection (rapid acting) (ADMELOG) SUBCUTANEOUS w MEALS Nusrat Nash APRN.BARREL PAINTER 9 Units at 01/19/22 0825 pioglitazone 45 mg tab(s) (ACTOS) 45 mg ORAL DAILY Nusrat Nash APRN.BARREL PAINTER 45 mg at 01/19/22 0848 docusate sodium 100 mg cap(s) (COLACE) 100 mg ORAL BID Nusrat Nash APRN.BARREL PAINTER 100 mg at 01/18/222014 polyethylene glycol 3350 17 g packet (MIRALAX, GLYCOLAX) 17 g ORAL DAILY Nusrat Nash APRN.BARREL PAINTER 17 g at 01/18/22 1222 venlafaxine ER 37.5 mg cap(s) (EFFEXOR XR) 37.5 mg ORAL DAILY WITH BREAKFAST Rafal Carroll PA-C 37.5 mg at 01/19/22 0849 dextrose 40 % 15 g 15 g ORAL PRN Pa Rascon MD Or glucagon 1 mg injection 1 mg INTRAMUSCULAR PRN Pa Rascon MD Or dextrose 10% iv bolus 12.5 g INTRAVENOUS PRN Pa Rascon MD LABS : Lab Results Component [...] (98.1 ?F) 3 (more content not included)... [facility] CT BRAIN WO IVCONon 01-20-20 CT BRAIN WO IVCON * * *Final Report* * * DATE OF EXAM: Jan 19 2022 3:45AM FAVIO 0504 - CT BRAIN WO IVCON / PROCEDURE REASON: Head trauma, moderate-severe * * * * Physician Interpretation * * * * EXAMINATION: CT BRAIN WO IVCON, CT CERVICAL SPINE WO IVCON CLINICAL HISTORY: Head trauma, moderate-severe (accession [id number]), Neck trauma, midline tenderness (Age 16-64y) (accession [id number]) TECHNIQUE: Serial axial images without IV contrast [...] Counting reference: Craniocervical junction. Anatomic Variants: None. Vegetable Packer (topogram) images: Cardiac leads overlie the upper [...] CT: No cervical spine fracture or subluxation. Director Athletic: ROBERTA Transcribe Date/Time: Jan 19 2022 3:52A Dictated by : ASHISH MARY MD This examination was interpreted and the report reviewed and electronically signed by: ASHISH MARY MD on Jan 19 2022 4:00AM EST [id number] [facility] CT CERVICAL SPINE WO IVCONon 01-19-2022 [...] IVCON CLINICAL HISTORY: Head trauma, moderate-severe (accession [id number]), Neck trauma, midline tenderness (Age 16-64y) (accession [id number]) TECHNIQUE: Serial axial images without IV contrast [...] Counting reference: Craniocervical junction. Anatomic Variants: None. Vegetable Packer (topogram) images: Cardiac leads overlie the upper [...] CT: No cervical spine fracture or subluxation. Director Athletic: ROBERTA Transcribe Date/Time: Jan 19 2022 3:52A Dictated by : ASHISH MARY MD This examination was interpreted and the report reviewed and electronically signed by: ASHISH MARY MD on Jan 19 2022 4:00AM EST [id number] Normal [facility] ETHYL GLUCURONIDE UR SCRon 1 ETHYL GLUCURONIDE UR SCR Negative Normal Cutoff 500 [facility] Comment on above: Order Comment: Speci men Type: URINE SPECIMENOrdering Facility: [facility] Address: [address] [place], [place] [address] Result Comment: INTE RPRETIVE INFORMATION: Ethyl Glucuronide Screen with Reflex to Confirmation, Urine Ethyl glucuronide is a direct metabolite of ethanol and can be detected up to 80 hours in urine after ethanol ingestion. The cutoff for positive by immunoassay is set at 500 ng/mL. A positive result will be confirmed by liquid chromatography tandem mass spectrometry (LC-MS/MS). Performed By: [email or web address] [address] [place] [address] Pomologist: Derian Moreno MD, PhD Performed By: #### U EGLUC ####[facility] LABORATORIESIA [id number] [place] [address] Free PSA [Mass/Vol]on 2021 Free PSA/Total PSA [Mass fraction] 49 % Normal [facility] Comment on above: Order Comment: Speci men Type: BLOOD SPECIMEN [facility] Address: [address] [place] [address] Result Comment: Tota l and free PSA [...] 15.8% Performed By: #### 5 8410-2 #### [facility] CLIA [id number] [address] [place] [address] [place] [facility] Prostate specific Ag [Mass/Vol] 0.74 ng/mL Normal <2.60 [facility] Comment on above: Order Comment: Speci men Type: BLOOD SPECIMEN [facility] Address: [address] [place] [address] Result Comment: Tota l PSA test methodology used is the Electrochemiluminescence Immunoassay by Morgan Apozy. Total PSA values by differing methodologies cannot be interchanged. Performed By: #### 5 8410-2 #### [facility] [place] [id number] [address] [place] [address] [place] GGT SerPl-cCncon 01-19-2022 Gamma glutamyl transferase [Catalytic activity/Vol] 24 U/L Normal 10-70 [facility] Comment on above: Order Comment: Speci men Type: BLOOD SPECIMEN [facility] Address: [address] [place] [address] Performed By: #### 5 8410-2 #### [facility] [place] [id number] [address] [place] [address] [place] Gamma glutamyl transferase [Catalytic activity/Vol] 9 U/L Low 10-70 [facility] Comment on above: Order Comment: Speci men Type: BLOOD SPECIMENOrdering Facility: [facility] Address: [address] [place] [address] Performed By: #### 2 324-2 ####[facility] LABCLIA [id number] [place] [address] [place] MEDICAL EMERon 01-19-2022 MEDICAL KIYA HNO ID: [id number] Author: Liam Saldana APRN.BARREL PAINTER Service: Critical Care Author Type: Nurse Practitioner [...] but they did hear the patient yell ow and help. On assessment at bedside patient is distressed [...] he refused these interventions noting that he hates this bed and is not going to lay on it. I informed him that he could refuse [...] bolus Recent Lab Results: CBC: Recent Labs 01/18/22526 WBC 6.34 RBC 4.82 HB 13.9 HCT 41.5 PLT 258 MCV 86.1 MCH 28.8 MPV 9.8 Coags: No results for input(s): PT, INR, APTT in the last 24 hours. BMP: Recent Labs 01/18/22526 NA 137 K 4.7 CHLOR 101 CO2 26 BUN 24 CREAT 1.18 GLUC 415* Physical Exam BP 185/104 Pulse 93 Temp 36.9 ?C (98.4 ?F) (Oral) Resp 18 Ht 177.8 cm (5' 10) Wt 115.1 kg (253 lb 11.2 oz) [...] noted physicial (more content not included)... Normal [facility] Magnesium [Mass/Vol] 1.9 mg/dL Normal 1.7-2.3 [facility] Comment on above: Order Comment: Speci men Type: BLOOD SPECIMENOrdering Facility: [facility] Address: [address] [place] [address] Performed By: #### 1 9123-9, 88137-8 ####[facility] [id number] [address] [facility] NURSING PROGon 01-19-2022 NURSING PROG HNO ID: [id number] Author: Rebecca Goetz, LEATHA Service: Nursing Author Type: Registered Nurse Type: Nursing Progress Note Filed: 01/19/2022 4:04 AM Note Text: Post Fall Assessment José Manuel Yao Poli [id number] Witnessed: No How did fall occur: Pt [...] CT Name of LIP notified: Liam Saldana risk officer Notify family as appropriate: Pt declined family notification Post fall interventions: Fall Huddle Conducted, Bed Alarm On, Frequent Observation, Patient/Family Education, Apply a Yellow Wrist Band, Apply Townsend Risk Symbol to the Door, and My Safety Plan Updated This note was completed by:Rebecca Goetz [facility] THERAPY NTon 01-19-2022 THERAPY NT HNO ID: [id number] Author: Prasanth Jeronimo, PT Service: Physical Therapy Author Type: Physical Therapist Type: Therapy (PT/OT/Speech/Resp) Filed: 01/19/2022 3:22 PM Note Text: Physical Therapy Evaluation SERVICE DATE: 01/19/2022 SERVICE TIME: 1419 to 1450 ROOM: [place] [address] Recommended Discharge Disposition: Subacute/SNF Recommended Discharge Disposition [...] emergency department at the direction of his chemical strength tester, Dr. Kennedy for psych eval Relevant Past [...] No falls this past year. Patient Report: Ever since I hurt my groin it's been tough. I won't go back to PT it just made it hurt. The walker makes me fall more than my cane. CURRENT FUNCTIONAL STATUS: Most recent performance Current [...] will demonst (more content not included)... Normal [facility] URINALYSIS, REFLEX MICROSCOP ICon 01-19-2022 Bilirubin Ql (U) Negative Normal Negative [facility] Comment on above: Order Comment: Speci men Type: URINE SPECIMENOrdering Facility: [facility] Address: [address] [place] [address] Performed By: #### L [id number] ####[facility] [id number] [address] [place] [address] [place] Clarity (Unsp spec) Clear Normal Clear [facility] Comment on above: Order Comment: Speci men Type: URINE SPECIMENOrdering Facility: [facility] Address: [address] [place] [address] Performed By: #### L [id number] ####[facility] [id number] [address] [place] Color (U) Yellow Normal Yellow [facility] Comment on above: Order Comment: Speci men Type: URINE SPECIMENOrdering Facility: [facility] Address: [address] [place] [address] Performed By: #### L [id number] ####[facility] [id number] [place] [address] [place] Epithelial cells LM.HPF (Urine sed) [#/Area] Few Normal [facility] Comment on above: Order Comment: Speci men Type: URINE SPECIMENOrdering Facility: [facility] Address: [address] [place] [address] Result Comment: Few Performed By: #### L [id number] ####[facility] [id number] [address] [place] [address] [facility] [place] Glucose Test strip (U) [Mass/Vol] 2+ Abnormal Negative [facility] Comment on above: Order Comment: Speci men Type: URINE SPECIMENOrdering Facility: [facility] Address: [address] [place] [address] Performed By: #### L [id number] ####[facility] [id number] [address] [place] [address] [place] [facility] Hemoglobin Ql (U) 1+ Abnormal Negative [facility] Comment on above: Order Comment: Speci men Type: URINE SPECIMENOrdering Facility: [facility] Address: [address] [place] [address] Performed By: #### L [id number] ####[facility] [id number] [address] [place], [place] [address] [place] [facility] Ketones Ql (U) Trace Abnormal Negative [facility] Comment on above: Order Comment: Speci men Type: URINE SPECIMENOrdering Facility: [facility] Address: [address] [place] [address] Performed By: #### L [id number] ####[facility] [id number] [address] [place], [place] [address] [facility] Leukocyte esterase Test strip Ql (U) Negative Normal Negative [facility] Comment on above: Order Comment: Speci men Type: URINE SPECIMENOrdering Facility: [facility] Address: [address] [place] [address] Performed By: #### L [id number] ####[facility] [id number] [address] [place] [address] [place] Nitrite Ql (U) Negative Normal Negative [facility] Comment on above: Order Comment: Speci men Type: URINE SPECIMENOrdering Facility: [facility] Address: [address] [place] [address] Performed By: #### L [id number] ####[facility] [id number] [place] [address] [place] pH (U) 7.0 [pH] Normal 5.0-8.0 [facility] Comment on above: Order Comment: Speci men Type: URINE SPECIMENOrdering Facility: [facility] Address: [address] [place] [address] Performed By: #### L [id number] ####[facility] [id number] [place] [address] [place] Protein (U) [Mass/Vol] Normal [facility] Comment on above: Order Comment: Speci men Type: URINE SPECIMENOrdering Facility: [facility] Address: [address] [place] [address] Result Comment: Visi ble blood causes falsely elevated results for analyte Protein. Due to this limitation, Protein will not be reported for patients whose urine contains visible blood. Performed By: #### L [id number] ####[facility] [id number] [place] [address] [place] RBC LM.HPF (Urine sed) [#/Area] 6-10 /HPF Abnormal 0-3 /HPF [facility] Comment on above: Order Comment: Speci men Type: URINE SPECIMENOrdering Facility: [facility] Address: [address] [place] [address] Performed By: #### L [id number] ####[facility] [id number] [place] [id number] [place] Specific gravity (U) [Rel density] 1.020 Normal 1.005-1.030 [facility] Comment on above: Order Comment: Speci men Type: URINE SPECIMENOrdering Facility: [facility] Address: [address] [place] [address] Performed By: #### L [id number] ####[facility] [id number] [address] [place] Urobilinogen Ql (U) 0.2 EU/dL Normal 0.2-1.0 EU/dL [facility] Comment on above: Order Comment: Speci men Type: URINE SPECIMENOrdering Facility: [facility] Address: [address] [place] [address] Performed By: #### L [id number] ####[facility] [id number] [address] [place] WBC LM.HPF (Urine sed) [#/Area] 0-5 /HPF Normal 0-5 /HPF [facility] Comment on above: Order Comment: Speci men Type: URINE SPECIMENOrdering Facility: [facility] Address: [address] [place] [address] Performed By: #### L [id number] ####[facility]CLIA [id number] [address] ALLIED HEALTHon 01-18-2022 ALLIED HEALTH HNO ID: [id number] Author: MARCOS Bursh Service: Radiology Author Type: Horticultural Agent Type: Allied Health Filed: 01/18/2022 10:17 AM [...] MARCOS Brush January 18, 2022 10:17 AM [facility]: [id number] Author: Bunny Vera, CT Service: Radiology Author Type: Horticultural Agent Type: Allied Health Filed: 01/18/2022 9:07 AM Note Text: ORAL CONTRAST TAKEN TO 4D AND GIVEN TO PATIENTS NURSE JAYESH. 20ML OPTIRAY 240 AND 450ML WATER. Normal [facility] Basic metabolic 2000 panelon 01-18-2022 Anion gap [Moles/Vol] 10 mmol/L Normal 12-[address] [facility] Comment on above: Order Comment: Speci men Type: BLOOD SPECIMEN [facility] Address: [address] [place] [address] Performed By: #### 5 8410-2 #### [facility] CLIA [id number] [address] [place] [address] [place] Calcium [Mass/Vol] 8.9 mg/dL Normal 8.5-10.2 [facility] Comment on above: Order Comment: Speci men Type: BLOOD SPECIMEN [facility] Address: [address] [place] [address] Performed By: #### 5 8410-2 #### [facility] CLIA [id number] [address] [place] [address] [place] Chloride [Moles/Vol] 101 mmol/L Normal 97-105 [facility] Comment on above: Order Comment: Speci men Type: BLOOD SPECIMEN [facility] Address: [address] [place] [address] Performed By: #### 5 8410-2 #### [facility] CLIA [id number] [address] [place], [place] [address] [place] CO2 [Moles/Vol] 26 mmol/L Normal 22-30 [facility] Comment on above: Order Comment: Speci men Type: BLOOD SPECIMEN [facility] Address: [address] [place] [address] Performed By: #### 5 8410-2 #### [facility] CLIA [id number] [address] [place] [address] [place] Creatinine [Mass/Vol] 1.18 mg/dL Normal 0.73-1.[address] [facility] Comment on above: Order Comment: Luz vaughan Type: BLOOD SPECIMEN [facility] Address: [address] [place] [address] Performed By: #### 5 8410-2 #### [facility] [id number] [address] [place] [address] ESTIMATED GLOMERULAR FILTRATION RATE 70 mL/min/1.73m??? Normal >=60 [facility] Comment on above: Order Comment: Luz vaughan Type: BLOOD SPECIMEN [facility] Address: [address] [place] [address] Result Comment: Breanne mated Glomerular Filtration Rate [...] GFR. Performed By: #### 5 8410-2 #### [facility] [id number] [address] [place] [address] [place] Glucose [Mass/Vol] 415 mg/dL High 74-99 [facility] Comment on above: Order Comment: Luz vaughan Type: BLOOD SPECIMEN [facility] Address: [address] [place] [address] Result Comment: The [place] Diabetes Association (ADA) provides guidance for cutoff [...] Standards of Medical Care in Diabetes 2016, [place] [employer]. Diabetes Care. 2016.39(Suppl 1). Performed By: #### 5 8410-2 #### [facility] CLIA [id number] [address] [place] [address] [place] Potassium [Moles/Vol] 4.7 mmol/L Normal 3.7-5.[address] [facility] Comment on above: Order Comment: Luz men Type: BLOOD SPECIMEN [facility] Address: [address] [place] [address] Performed By: #### 5 8410-2 #### [facility] CLIA [id number] [address] [place] [address] Sodium [Moles/Vol] 137 mmol/L Normal 136-144 [facility] Comment on above: Order Comment: Luz vaughan Type: BLOOD SPECIMEN [facility] Address: [address] [place] [address] Performed By: #### 5 8410-2 #### [facility] CLIA [id number] [address] [place], [place] [address] [place] [facility] Urea nitrogen [Mass/Vol] 24 mg/dL Normal 9-24 [facility] Comment on above: Order Comment: Luz vaughan Type: BLOOD SPECIMEN [facility] Address: [address] [place] [address] Performed By: #### 5 8410-2 #### [facility] CLIA [id number] [address] [place], [place] [address] [place] CASE MGT INIT SANDOVALsteve 2021 CASE MGT INIT ASSTEAGAN HNO ID: [id number] Author: OSCAR Bennett Service: Social Work Author Type: Forensic Sergeant Type: Care Mgt Initial Assessment Filed: 01/18/2022 [...] to come to the hospital for an assessment ADVANCE DIRECTIVES Current Advance Directive: None Stitchdown Thread Laster Attempted to Assist with AD Completion: Yes [...] discharge within 30 days: No PATIENT 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 Normal [facility] CBC panel Auto (Bld)on 01-18 Erythrocyte distribution width (RBC) [Ratio] 13.0 % Normal 11.5-15.0 [facility] Comment on above: Order Comment: Speci men Type: BLOOD SPECIMEN [facility] Address: [address] [place] [address] Performed By: #### 5 8410-2 #### [facility] IA [id number] [address] [place] [address] [place] Hematocrit (Bld) [Volume fraction] 41.5 % Normal 39.0-51.0 [facility] Comment on above: Order Comment: Speci men Type: BLOOD SPECIMEN [facility] Address: [address] [place] [address] Performed By: #### 5 8410-2 #### [facility] IA [id number] [address] [place] [address] [place] Hemoglobin (Bld) [Mass/Vol] 13.9 g/dL Normal 13.0-17.0 [facility] Comment on above: Order Comment: Speci men Type: BLOOD SPECIMEN [facility] Address: [address] [place] [address] Performed By: #### 5 8410-2 #### [facility] IA [id number] [address] [place] [address] STATES [facility] MCH (RBC) [Entitic mass] 28.8 pg Normal 26.0-34.0 [facility] Comment on above: Order Comment: Speci men Type: BLOOD SPECIMEN [facility] Address: [address] [place] [address] Performed By: #### 5 8410-2 #### [facility] IA [id number] [address] [place] [address] [place] MCHC (RBC) [Mass/Vol] 33.5 g/dL Normal 30.5-36.[address] [facility] Comment on above: Order Comment: Speci men Type: BLOOD SPECIMEN [facility] Address: [address] [place] [address] Performed By: #### 5 8410-2 #### [facility] IA [id number] [address] [place] [address] [place] MCV (RBC) [Entitic vol] 86.1 fL Normal 80.0-100.0 [facility] Comment on above: Order Comment: Speci men Type: BLOOD SPECIMEN [facility] Address: [address] [place], [place] [address] Performed By: #### 5 8410-2 #### [facility] CLIA [id number] [address] [place] [address] [place] Nucleated RBC (Bld) [#/Vol] 10*3/uL Normal <0.01 [facility] Comment on above: Order Comment: Speci men Type: BLOOD SPECIMEN [facility] Address: [address] [place], [place] [address] Performed By: #### 5 8410-2 #### [facility] CLIA [id number] [address] [place] [address] [place] Platelet mean volume (Bld) [Entitic vol] 9.8 fL Normal 9.0-12.7 [facility] Comment on above: Order Comment: Speci men Type: BLOOD SPECIMEN [facility] Address: [address] [place], [place] [address] Performed By: #### 5 8410-2 #### [facility] IA [id number] [address] [place] [address] [place] Platelets (Bld) [#/Vol] 258 10*3/uL Normal 150-400 [facility] Comment on above: Order Comment: Speci men Type: BLOOD SPECIMEN [facility] Address: [address] [place], [place] [address] Performed By: #### 5 8410-2 #### [facility] CLIA [id number] [address] [place] [address] [place] RBC (Bld) [#/Vol] 4.82 10*6/uL Normal 4.20-6.00 [facility] Comment on above: Order Comment: Speci men Type: BLOOD SPECIMEN [facility] Address: [facility] [place] [address] Performed By: #### 5 8410-2 #### [facility] IA [id number] [address] [place], [place] [address] [facility] WBC (Bld) [#/Vol] 6.34 10*3/uL Normal 3.70-11.00 [facility] Comment on above: Order Comment: Speci men Type: BLOOD SPECIMEN [facility] Address: [address] [place] [address] Performed By: #### 5 8410-2 #### [facility] [id number] [address] [place], [place] [address] [facility] CONSULTon 01-18-2022 CONSULT HNO ID: [id number] Author: Rafal Carroll PA-C Service: Psychiatry Author Type: Physician Vehicle Washer Type: Consults Filed: 01/19/2022 3:08 PM Note [...] to the ED as recommended by his chemical strength tester for a psychiatric evaluation in the context of poor compliance to treatment. 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 Kennedy for psych eval who saw him in office earlier today. Note from Dr. Kennedy is as follows, He doesn't have a will to take any medications or do anything to improve his health. He states he would like to get better but doesn't understand why he feels like not taking any of his medications. He feels depressed and very overwhelmed. He denies hallucinations or suicidal or homicidal ideation. Will send the patient to the ER for psychiatric evaluation. The patient again denies SI, HI, hallucinations. Patient reports a known psychiatric history of anxiety and depression for which he sees outpatient psychiatry. He is prescribed Wellbutrin which he is not currently taking. The patient smokes marijuana and uses alcohol on occasion to help with his anxiety and anger. Patient lives with his brother and sister. He does not receive any medical assistance at home and states that he would prefer not to have a nurse come to his house as his brother would spread rumors about his health problems. The patient reiterates to me that he is confused by the amount of medications he is prescribed. He states he does not understand why he is taking them. He states I will try to do good and take them for 2 to 3 days in a row, but then I just stop. Of note, this is a longstanding issue. The patient was seen by a psychiatrist in May of this year after a short stay in a nursing facility. At that time the patient was unwilling to take his medications and Dr. Leon of psychiatry placed a referral for home health. Met with patient at bedside. Patient is [...] here because I was not taking my medication. Admits to longstanding history of poor compliance to meds. Does not offer a reason why he does not take his meds. Vague about his psychiatric symptoms. When asked if he is feeling depressed, states I guess. Says he had a psychiatrist but didn't go back. Was prescribed Wellbutrin, but didn't take. Per [facility], his last psych visit was in 05/31/[address] Inez Leon MD. Says sleep is poor. When asked about his appetite, he jokes about his obesity but then says he is cutting food intake down. Denies hallucinations. Energy is low, I need energy. Denies SI or HI. Denies history of suicide. Voices frustration over his toxicology results, says he has not had alcohol for 40+ years, does not understand how he could be + for alcohol. BAL 26 on 01/17/2022 @8:47 PM. UDS + thc. When asking how much he has been smoking, states as much as I want. When asked to clarify, reports using 3 joints per day. Admits to feeling confused, but not able to elaborate. Reports feeling [...] 01/17/2022 UETOH <11 (more content not included)... [facility] CT ABD/PEL WO IVCONon 2021 CT [...] annulus. No pericardial effusion or pericardial thickening. Vegetable Packer (topogram) images: No additional findings. IMPRESSION: No acute process identified involving the abdomen or pelvis. There are findings possibly related to constipation. Findings of remote granulomatous disease. Diffuse mural thickening of the bladder likely related to chronic bladder outlet obstruction. Additional findings noted above. Director Athletic: ROBERTA Transcribe Date/Time: Jan 18 2022 11:14A Dictated by : PRASANTH DARNELL MD This examination was interpreted and the report reviewed and electronically signed by: PRASANTH DARNELL MD on Jan 18 2022 11:21AM EST [id number] [facility] ED NOTEon 01-18-2022 ED NOTE HNO ID: [id number] Author: Los Nguyen RN Service: ? Author Type: Registered Nurse Type: ED Notes Filed: 01/17/2022 11:22 PM Note Text: Report given to Rebecca, pt ready to be transferred at this time. [facility] ED NOTE HNO ID: [id number] Author: Los Nguyen RN Service: ? Author Type: Registered Nurse Type: ED Notes Filed: 01/17/2022 11:14 PM Note Text: POC 254 [facility] HISTORY PHYSICALon 2 HISTORY PHYSICAL HNO ID: [id number] Author: Kylah Orantes MD Service: ? Author Type: Physician Type: HANDP Filed: 02/06/2022 12:27 PM Note Text: [facility] JOSÉ MANUEL ASHTON : 1960 AGE: 61 SEX: M CSN: [id number] [facility]: [facility] LOCATION: [facility] ATTENDING PHYSICIAN: Kylah Orantes M.D. DATE OF [...] emergency department at the direction of his chemical strength tester, Dr. Kennedy for psych eval who saw him in office earlier today. Note from Dr. Kennedy is as follows, He doesn't have a will to take any medications or do anything to improve his health. He states he would like to get better but doesn't understand why he feels like not taking any of his medications. He feels depressed and very overwhelmed. He denies hallucinations or suicidal or homicidal ideation. Will send the patient to the ER for psychiatric evaluation. ASSESSMENT AND PLAN: 1. Hyperglycemia. Admitted. Monitor [...] quittin.8 Smokeless tobacco: Never Tobacco comments: Smokes [place] Vaping Use Vaping Use: Never used Substance [...] mL iv bolus 1,000 mL INTRAVENOUS ONCE Pa Rascon MD 999 mL/hr at 01/17/22 2310 1,000 mL at 01/17/22 2310 dextrose 40 % 15 g 15 g ORAL PRN Pa Rascon MD Or glucagon 1 mg injection 1 mg INTRAMUSCULAR PRN Pa Rascon MD Or dextrose 10% iv bolus 12.5 g INTRAVENOUS PRN Pa Rascon MD Intake/Output Summary (Last 24 hours) [...] 7.0 Alb (more content not included)... Normal [facility] CBC panel Auto (Bld)on 01-17 Erythrocyte distribution width (RBC) [Ratio] 12.9 % Normal 11.5-15.0 [facility] Comment on above: Order Comment: Speci men Type: BLOOD SPECIMEN [facility] Address: [address] [place] [address] Performed By: #### 5 8410-2 #### [facility] CLIA [id number] [address] [place] [address] OF [facility] Hematocrit (Bld) [Volume fraction] 49.3 % Normal 39.0-51.0 [facility] Comment on above: Order Comment: Speci men Type: BLOOD SPECIMEN Ordering Facility[facility] Address: [address] [place] [address] Performed By: #### 5 8410-2 #### [facility] CLIA [id number] [address] [place] [address] Hemoglobin (Bld) [Mass/Vol] 16.1 g/dL Normal 13.0-17.0 [facility] Comment on above: Order Comment: Speci men Type: BLOOD SPECIMEN [facility] Address: [address] [place] [address] Performed By: #### 5 8410-2 #### [facility] CLIA [id number] [address] [place] [address] MCH (RBC) [Entitic mass] 28.1 pg Normal 26.0-34.0 [facility] Comment on above: Order Comment: Speci men Type: BLOOD SPECIMEN [facility] Address: [address] [place] [address] Performed By: #### 5 8410-2 #### [facility] CLIA [id number] [address] [place] [address] STATES [facility] MCHC (RBC) [Mass/Vol] 32.7 g/dL Normal 30.5-36.[address] [facility] Comment on above: Order Comment: Speci men Type: BLOOD SPECIMEN [facility] Address: [address] [place] [address] Performed By: #### 5 8410-2 #### [facility] [place] [id number] [address] [place] [address] STATES [place] MCV (RBC) [Entitic vol] 86.0 fL Normal 80.0-100.0 [facility] Comment on above: Order Comment: Speci men Type: BLOOD SPECIMEN [facility] Address: [address] [place] [address] Performed By: #### 5 8410-2 #### [facility] CLIA [id number] [address] [place] [address] OF [place] Nucleated RBC (Bld) [#/Vol] 10*3/uL Normal <0.01 [facility] Comment on above: Order Comment: Speci men Type: BLOOD SPECIMEN [facility] Facility[facility] Address: [address] [place], [place] [address] Performed By: #### 5 8410-2 #### [facility] CLIA [id number] [address] [place] [address] [place] Platelet mean volume (Bld) [Entitic vol] 9.3 fL Normal 9.0-12.7 [facility] Comment on above: Order Comment: Speci men Type: BLOOD SPECIMEN [facility] Address: [address] [place], [place] [address] Performed By: #### 5 8410-2 #### [facility] CLIA [id number] [address] [place] [address] [place] Platelets (Bld) [#/Vol] 283 10*3/uL Normal 150-400 [facility] Comment on above: Order Comment: Speci men Type: BLOOD SPECIMEN [facility] Address: [address] [place] [address] Performed By: #### 5 8410-2 #### [facility] IA [id number] [address] [place] [address] [place] RBC (Bld) [#/Vol] 5.73 10*6/uL Normal 4.20-6.00 [facility] Comment on above: Order Comment: Speci men Type: BLOOD SPECIMEN [facility] Address: [address] [place], [place] [address] Performed By: #### 5 8410-2 #### [facility] CLIA [id number] [address] [place], [place] [address] [place] WBC (Bld) [#/Vol] 6.69 10*3/uL Normal 3.70-11.00 [facility] Comment on above: Order Comment: Speci men Type: BLOOD SPECIMEN [facility] Address: [address] [place], [place] [address] Performed By: #### 5 8410-2 #### [facility] [id number] [address] [place] [id number] [facility] CNOVon 01-17-2022 CNOV Office Visit (KIDLU ) -- NADERJOSÉ MANUEL BOND ([id number]) 1960 M T Date Time Provider Department 01/17/22 3:00 PM BILLY MARTINEZ During your visit today, we recorded the following information about you: Pulse Blood pressure Weight Height 90/minute 165/85 115.7 kg 1.778 m Billy Cody MD 01/17/2022 3:36 PM Signed [facility] [place] NEPHROLOGY CONSULT NOTE Patient Name: José Manuel [...] because he doesn't feel like taking any medications. He is having problems with chronic pain and lack of sleep. He states he stays up the whole night walking around in the house the whole night. He denies suicidal or homicidal ideation. He just smokes pot to calm himself down and it works. He avoids drinking alcohol because it makes me mean so I avoid going down that route. He would like to get helped. He has a psychiatrist at [facility] [place], [place]. PAST MEDICAL HISTORY: PAST MEDICAL HISTORY [...] quittin.8 Smokeless tobacco: Never Tobacco comments: Smokes [place] Vaping Use Vaping Use: Never used Substance Use Topics Alcohol use: Not Currently Drug use: Yes Types: Marijuana Comment: daily Single. No children. He lives with his brother and sister. (He moved back from [place]). 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 He quit tobacco in 2019. He [...] tablets before breakfast and before supper Insulin [place], Disposable, (COMFORT EZ P (more content not included)... Normal [facility] Comprehensive metabolic 2000 panelon 01-17-2022 Albumin [Mass/Vol] 4.0 g/dL Normal 3.9-4.9 [facility] Comment on above: Order Comment: Luz vaughan Type: BLOOD SPECIMEN [facility] Address: [address] [place] [address] Performed By: #### 5 8410-2 #### [facility] CLIA [id number] [address] [place] [address] [place] ALP [Catalytic activity/Vol] 127 U/L High 38-113 [facility] Comment on above: Order Comment: Speci men Type: BLOOD SPECIMEN [facility] Address: [address] [place] [address] Performed By: #### 5 8410-2 #### [facility] CLIA [id number] [address] [place] [address] [place] ALT [Catalytic activity/Vol] 15 U/L Normal 10-54 [facility] Comment on above: Order Comment: Speci men Type: BLOOD SPECIMEN [facility] Address: [address] [place], [place] [address] Performed By: #### 5 8410-2 #### [facility] CLIA [id number] [address] [place], [place] [address] [place] Anion gap [Moles/Vol] 12 mmol/L Normal 9-[address] [facility] Comment on above: Order Comment: Speci men Type: BLOOD SPECIMEN [facility] Address: [address] [place] [address] Performed By: #### 5 8410-2 #### [facility] CLIA [id number] [address] [place] [address] [place] AST [Catalytic activity/Vol] 14 U/L Normal 14-40 [facility] Comment on above: Order Comment: Speci men Type: BLOOD SPECIMEN [facility] Address: [address] [place], [place] [address] Performed By: #### 5 8410-2 #### [facility] CLIA [id number] [facility] [place] [id number] [place] Bilirubin [Mass/Vol] 0.3 mg/dL Normal 0.2-1.3 [facility] Comment on above: Order Comment: Speci men Type: BLOOD SPECIMEN [facility] Address: [address] [place], [place] [address] Performed By: #### 5 8410-2 #### [facility] CLIA [id number] [facility] [place], [place] [address] [place] Calcium [Mass/Vol] 10.2 mg/dL Normal 8.5-10.2 [facility] Comment on above: Order Comment: Speci men Type: BLOOD SPECIMEN [facility] Address: [address] [place], [place] [address] Performed By: #### 5 8410-2 #### [facility] CLIA [id number] [address] [place], [place] [address] [place] Chloride [Moles/Vol] 98 mmol/L Normal 97-105 [facility] Comment on above: Order Comment: Speci men Type: BLOOD SPECIMEN [facility] Address: [address] [place] [address] Performed By: #### 5 8410-2 #### [facility] IA [id number] [address] [place], [place] [address] [place] CO2 [Moles/Vol] 27 mmol/L Normal 22-30 [facility] Comment on above: Order Comment: Speci men Type: BLOOD SPECIMEN [facility] Address: [address] [place] [address] Performed By: #### 5 8410-2 #### [facility] IA [id number] [address] [place], [place] [address] [place] Creatinine [Mass/Vol] 1.22 mg/dL Normal 0.73-1.[address] [facility] Comment on above: Order Comment: Speci men Type: BLOOD SPECIMEN [facility] Address: [address] [place] [address] Performed By: #### 5 8410-2 #### [facility] IA [id number] [address] [place], [place] [address] [facility] ESTIMATED GLOMERULAR FILTRATION RATE 67 mL/min/1.73m??? Normal >=60 [facility] Comment on above: Order Comment: Speci men Type: BLOOD SPECIMEN [facility] Address: [address] [place] [address] Result Comment: Breanne mated Glomerular Filtration Rate [...] GFR. Performed By: #### 5 8410-2 #### [facility] [id number] [address] [place] [address] [place] Glucose [Mass/Vol] 312 mg/dL High 74-99 [facility] Comment on above: Order Comment: Luz vaughan Type: BLOOD SPECIMEN [facility] Address: [address] [place] [address] Result Comment: The [place] Diabetes Association (ADA) provides guidance for cutoff [...] Standards of Medical Care in Diabetes 2016, [place] [employer] Association. Diabetes Care. 2016.39(Suppl 1). Performed By: #### 5 8410-2 #### [facility] [id number] [address] [place], [place] [address] [place] Potassium [Moles/Vol] 4.3 mmol/L Normal 3.7-5.[address] [facility] Comment on above: Order Comment: Luz vaughan Type: BLOOD SPECIMEN Order[facility] Address: [address] [place], [place] [address] Performed By: #### 5 8410-2 #### [facility] [id number] [address] [place], [place] [address] [place] Protein [Mass/Vol] 7.0 g/dL Normal 6.3-8.0 [facility] Comment on above: Order Comment: Luz vaughan Type: BLOOD SPECIMEN Order[facility] Address: [address] [place], [place] [address] Performed By: #### 5 8410-2 #### [facility] CLIA [id number] [facility] [address] Sodium [Moles/Vol] 137 mmol/L Normal 136-144 [facility] Comment on above: Order Comment: Speci men Type: BLOOD SPECIMEN [facility] Address: [address] [place] [address] Performed By: #### 5 8410-2 #### [facility] IA [id number] [facility] [address] STATES [facility] Urea nitrogen [Mass/Vol] 26 mg/dL High 9-24 [facility] Comment on above: Order Comment: Speci men Type: BLOOD SPECIMEN [facility] Address: [address] [place] [address] Performed By: #### 5 8410-2 #### [facility] IA [id number] [address] [place] [address] ECG COMPLETEon 01-17-2022 ECG COMPLETE Ventricular Rate : 8 9 BPM Atrial Rate : 90 BPM P-R Interval : 155 ms QRS Duration : 111 ms Q-T Interval : 385 ms QTC Calculation(Bazett) : 469 ms Calculated P Mittie : 35 degrees Calculated R Mittie : 53 degrees Calculated T Mittie : 52 degrees Sinus rhythm Probable left atrial enlargement Low voltage, precordial leads Probable anteroseptal infarct, old Abnormal ECG NO CHANGE FROM 04/21/21. OLMAN 01/17 [place] ([id number]), market editor MOHINDER LINDER ([id number]) on 01/18/2022 11:00:19 AM NAME : JOSÉ MANUEL ASHTON PID : [id number] : 1960 Gender : Male Race : ORD : [id number] Procedure Date : Jan 17 2022 20:58:11 Edit Date : Jan 18 2022 11:00:23 Diagnosis: Sinus rhythm Probable left atrial enlargement Low voltage, precordial leads Probable anteroseptal infarct, old Abnormal ECG NO CHANGE FROM 04/21/21. OLMAN 01/17 Confirmed by MD RASCON BRYAN ([id number]), market editor MOIHNDER LINDER ([id number]) on 01/18/2022 11:00:19 AM Test Reason : Arrhythmia Location : 502 : LUED 12 Overread By : MD RASCON BRYAN Edited By : MOHINDER LINDER Referred By : , Acquired by : VAMSI, [facility] ED NOTEon 01-17-2022 ED NOTE HNO ID: [id number] Author: Regi Tavarez, LEATHA Service: Nursing Author Type: Registered Nurse Type: ED Notes Filed: 01/17/2022 6:34 PM Note Text: Pt sent by Dr Kennedy for psychiatric eval from appointment today Pt states he is having hard time understanding his medical dx and keeping up with his T2DM. [facility] ED PROV NOTEon 01-17-2022 ED PROV NOTE HNO ID: [id number] Author: Pa Rascon MD Service: Emergency Medicine Author Type: [...] emergency department at the direction of his chemical strength tester, Dr. Kennedy for psych eval who saw him in office earlier today. Note from Dr. Kennedy is as follows, He doesn't have a will to take any medications or do anything to improve his health. He states he would like to get better but doesn't understand why he feels like not taking any of his medications. He feels depressed and very overwhelmed. He denies hallucinations or suicidal or homicidal ideation. Will send the patient to the ER for psychiatric evaluation. The patient again denies SI, HI, hallucinations. Patient reports a known psychiatric history of anxiety and depression for which he sees outpatient psychiatry. He is prescribed Wellbutrin which he is not currently taking. The patient smokes marijuana and uses alcohol on occasion to help with his anxiety and anger. Patient lives with his brother and sister. He does not receive any medical assistance at home and states that he would prefer not to have a nurse come to his house as his brother would spread rumors about his health problems. The patient reiterates to me that he is confused by the amount of medications he is prescribed. He states he does not understand why he is taking them. He states I will try to do good and take them for 2 to 3 days in a row, but then I just stop. Of note, this is a longstanding issue. [...] quittin.8 Smokeless tobacco: Never Tobacco comments: Smokes [place] Vaping Use Vaping Use: Never used Substance [...] not ill-appea (more content not included)... Normal [facility] Ethanol SerPl-ncon 022 Ethanol [Mass/Vol] 29 mg/dL High <11 [facility] Comment on above: Order Comment: Speci men Type: BLOOD SPECIMEN [facility] Address: [address] [place] [address] Performed By: #### 5 8410-2 #### [facility] IA [id number] [address] [place] [address] [place] [facility] KETONES/ACETONE/BHBon 2021 Beta hydroxybutyrate [Moles/Vol] 1.55 mmol/L High <0.28 [facility] Comment on above: Order Comment: Speci men Type: BLOOD SPECIMEN [facility] Address: [address] [place] [address] Performed By: #### 5 8410-2 #### [facility] CLIA [id number] [address] [place] [address] [place] TOX SCREEN ROUT URon 022 Amphetamines Confirm (U) [Mass/Vol] Negative Normal Negative [facility] Comment on above: Order Comment: Speci men Type: BLOOD SPECIMEN [facility] Address: [address] [place] [address] Result Comment: Cuto ff threshold at 1000 ng/mL. Performed By: #### 5 8410-2 #### [facility] CLIA [id number] [facility] [address] BARBITURATES, URINE Negative Normal Negative [facility] Comment on above: Order Comment: Speci men Type: BLOOD SPECIMEN [facility] Address: [address] [place] [address] Result Comment: Cuto ff threshold at 200 ng/mL. Performed By: #### 5 8410-2 #### [facility] CLIA [id number] [address] [place] [address] [place] BENZODIAZEPINES, UR Negative Normal Negative [facility] Comment on above: Order Comment: Speci men Type: BLOOD SPECIMEN [facility] Address: [address] [place] [address] Result Comment: Cuto ff threshold at 200 ng/mL. Performed By: #### 5 8410-2 #### [facility] CLIA [id number] [address] [place] [address] [place] CANNABINOIDS,URINE Positive Abnormal Negative [facility] Comment on above: Order Comment: Speci men Type: BLOOD SPECIMEN [facility] Address: [address] [place] [address] Result Comment: Cuto ff threshold at 50 ng/mL. Performed By: #### 5 8410-2 #### [facility] CLIA [id number] [address] [place], [place] [address] [facility] Cocaine Ql (U) Negative Normal Negative [facility] Comment on above: Order Comment: Speci men Type: BLOOD SPECIMEN [facility] Address: [address] [place] [address] Result Comment: Cuto ff threshold at 300 ng/mL. Performed By: #### 5 8410-2 #### [facility] CLIA [id number] [address] [place], [place] [address] [place] [facility] Ethanol (U) [Mass/Vol] <11 Normal <11 [facility] Comment on above: Order Comment: Speci men Type: BLOOD SPECIMEN [facility] Address: [address] [place] [address] Performed By: #### 5 8410-2 #### [facility] CLIA [id number] [address] [place], [place] [address] [facility] Opiates Screen Ql (U) Negative Normal Negative [facility] [facility] Comment on above: Order Comment: Speci men Type: BLOOD SPECIMEN Ordering Facility[facility] Address: [address] [place] [address] Result Comment: Cuto ff threshold at 300 ng/mL. Performed By: #### 5 8410-2 #### [facility] CLIA [id number] [address] [place], [place] [id number] [facility] oxyCODONE cutoff Screen (U) [Mass/Vol] Negative Normal Negative [facility] Comment on above: Order Comment: Speci men Type: BLOOD SPECIMEN Ordering Facility: [facility] Address: [address] [place] [address] Result Comment: Cuto ff threshold at 100 ng/mL. Performed By: #### 5 8410-2 #### [facility] CLIA [id number] [address] [place], [place] [id number] [facility] Phencyclidine Ql (U) Negative Normal Negative [facility] Comment on above: Order Comment: Speci men Type: BLOOD SPECIMEN Ordering Facility[facility] Address: [address] [place] [address] Result Comment: Cuto ff threshold at 25 ng/mL. Performed By: #### 5 8410-2 #### [facility] CLIA [id number] [address] [place] [address] TROPONIN Ton 01-17-2022 Troponin T.cardiac [Mass/Vol] 0.011 ug/L Normal 0.000-0.029 [facility] Comment on above: Order Comment: Speci men Type: BLOOD SPECIMEN Ordering Facility[facility] Address: [address] [place] [address] Performed By: #### T NT #### [facility] CLIA [id number] [address] [place] [address] [place] TSH SerPl-aCncon 01-17-2022 TSH Qn 1.870 m[IU]/L Normal 0.270-4.200 [facility] Comment on above: Order Comment: Speci men Type: BLOOD SPECIMEN Ordering Facility[facility] Address: [address] [place] [address] Performed By: #### 5 8410-2 #### [facility] CLIA [id number] [address] [place] [address] Urinalysis complete panel (U )on 01-17-2022 Bacteria LM.HPF (Urine sed) [#/Area] Few Abnormal None Seen [facility] Comment on above: Order Comment: Speci men Type: BLOOD SPECIMEN [facility] Address: [address] [place] [address] Performed By: #### 5 8410-2 #### [facility] CLIA [id number] [address] [place] [address] Bilirubin Ql (U) Negative Normal Negative [facility] Comment on above: Order Comment: Speci men Type: BLOOD SPECIMEN [facility] Address: [address] [place] [address] Performed By: #### 5 8410-2 #### [facility] CLIA [id number] [address] [place] [address] [place] Clarity (Unsp spec) Clear Normal Clear [facility] Comment on above: Order Comment: Speci men Type: BLOOD SPECIMEN Order[facility] Facility[facility] Address: [address] [place] [address] Performed By: #### 5 8410-2 #### [facility] CLIA [id number] [address] [place] [address] Color (U) Yellow Normal Yellow [facility] Comment on above: Order Comment: Speci men Type: BLOOD SPECIMEN [facility] Facility[facility] Address: [address] [place] [address] Performed By: #### 5 8410-2 #### [facility] CLIA [id number] [address] [place] Epithelial cells LM.HPF (Urine sed) [#/Area] Few Normal [facility] Comment on above: Order Comment: Speci men Type: BLOOD SPECIMEN Order[facility] Address: [address] [place] [address] Result Comment: Few Performed By: #### 5 8410-2 #### [facility] CLIA [id number] [address] [place] [address] [place] Glucose Test strip (U) [Mass/Vol] 3+ Abnormal Negative [facility] Comment on above: Order Comment: Speci men Type: BLOOD SPECIMEN Order[facility] Address: [address] [place] [address] Performed By: #### 5 8410-2 #### [facility] CLIA [id number] [address] [place], [place] [id number] [place] Hemoglobin Ql (U) 2+ Abnormal Negative [facility] Comment on above: Order Comment: Speci men Type: BLOOD SPECIMEN Order[facility] Address: [address] [place] [address] Performed By: #### 5 8410-2 #### [facility] CLIA [id number] [address] Hyaline casts (Urine sed) [#/Area] 1-3 /LPF Abnormal 0 /LPF [facility] Comment on above: Order Comment: Speci men Type: BLOOD SPECIMEN [facility] Address: [address] [place] [address] Performed By: #### 5 8410-2 #### [facility] CLIA [id number] [address] [place] [address] Ketones Ql (U) 1+ Abnormal Negative [facility] Comment on above: Order Comment: Speci men Type: BLOOD SPECIMEN Order[facility] Address: [address] [place] [address] Performed By: #### 5 8410-2 #### [facility] CLIA [id number] [address] [place] [address] Leukocyte esterase Test strip Ql (U) Negative Normal Negative [facility] Comment on above: Order Comment: Speci men Type: BLOOD SPECIMEN Order[facility] Address: [address] [place] [address] Performed By: #### 5 8410-2 #### [facility] CLIA [id number] [address] [place] [address] Nitrite Ql (U) Negative Normal Negative [facility] Comment on above: Order Comment: Speci men Type: BLOOD SPECIMEN Order[facility] Address: [address] [place] [address] Performed By: #### 5 8410-2 #### [facility] CLIA [id number] [address] [place] [address] pH (U) 6.0 [pH] Normal 5.0-8.0 [facility] Comment on above: Order Comment: Speci men Type: BLOOD SPECIMEN Order[facility] Address: [address] [place] [address] Performed By: #### 5 8410-2 #### [facility] CLIA [id number] [address] [place], [place] [id number] [place] [facility] Protein (U) [Mass/Vol] Normal [facility] Comment on above: Order Comment: Speci men Type: BLOOD SPECIMEN Ordering Facility[facility] Address: [address] [place] [address] Result Comment: Visi ble blood causes falsely elevated results for analyte Protein. Due to this limitation, Protein will not be reported for patients whose urine contains visible blood. Performed By: #### 5 8410-2 #### [facility] CLIA [id number] [address] [place] [address] [place] RBC LM.HPF (Urine sed) [#/Area] 3-5 /HPF Abnormal 0-3 /HPF [facility] Comment on above: Order Comment: Speci men Type: BLOOD SPECIMEN Order[facility] Address: [address] [place] [address] Performed By: #### 5 8410-2 #### [facility] [place] [id number] [address] [place] [address] [place] Specific gravity (U) [Rel density] >=1.030 High 1.005-1.030 [facility] Comment on above: Order Comment: Speci men Type: BLOOD SPECIMEN Order[facility] Address: [address] [place] [address] Performed By: #### 5 8410-2 #### [facility] CLIA [id number] [address] [place], [place] [id number] [place] Urobilinogen Ql (U) 0.2 EU/dL Normal 0.2-1.0 EU/dL [facility] Comment on above: Order Comment: Speci men Type: BLOOD SPECIMEN Order[facility] Address: [address] [place] [address] Performed By: #### 5 8410-2 #### [facility] CLIA [id number] [address] [place] [id number] [place] WBC LM.HPF (Urine sed) [#/Area] 0-5 /HPF Normal 0-5 /HPF [facility] Comment on above: Order Comment: Speci men Type: BLOOD SPECIMEN Order[facility] Address: [address] [place] [address] Performed By: #### 5 8410-2 #### [facility] CLIA [id number] [address] [place] [id number] [place] XR CHEST 1V FRONTAL PORTon [...] exam with no evidence of acute disease. Director Athletic: [facility] Transcribe Date/Time: Jan 17 2022 8:15P Dictated by : LAZARO SENA MD This examination was interpreted and the report reviewed and electronically signed by: LAZARO SENA MD on Jan 17 2022 8:15PM EST [id number] Normal [facility] GLUCOSE, BLOOD (POC)on 01-03 Glucose [Mass/Vol] 290 mg/dL Abnormal 74 - 99 mg/dL [facility] HEMOGLOBIN A1C (POC)on 01-03 HbA1c (Bld) [Mass fraction] 13.4 % Abnormal 4.2 - 5.6 % [facility] GLUCOSE, BLOOD (POC)on 11-05 Glucose [Mass/Vol] 330 mg/dL Abnormal 74 - 99 mg/dL [facility] HEMOGLOBIN A1C (POC)on 11-05 HbA1c (Bld) [Mass fraction] 11.3 % Abnormal 4.2 - 5.6 % [facility] GLUCOSE, BLOOD (POC)on 10-05 Glucose [Mass/Vol] 184 mg/dL Abnormal 74 - 99 mg/dL [facility] HEMOGLOBIN A1C (POC)on 10-05 HbA1c (Bld) [Mass fraction] 11.5 % Abnormal 4.2 - 5.6 % [facility] GLUCOSE, BLOOD (POC)on 09-20 Glucose [Mass/Vol] 197 mg/dL Abnormal 74 - 99 mg/dL [facility] HEMOGLOBIN A1C (POC)on 09-20 HbA1c (Bld) [Mass fraction] 12.5 % Abnormal 4.2 - 5.6 % [facility] GLUCOSE, BLOOD (POC)on 08-11 Glucose [Mass/Vol] 434 mg/dL Abnormal 74 - 99 mg/dL [facility] HEMOGLOBIN A1C (POC)on 08-11 HbA1c (Bld) [Mass fraction] 12.7 % Abnormal 4.2 - 5.6 % [facility] MRI PELVIS WO/W IVCONon 09-[address] [facility] [address] ABD/PEL W IVCONon 021 CT ABD/PEL W IVCON Final Report DATE OF EXAM: Jun 26 2020 3:38PM [facility] 0530 - CT ABD/PEL W IVCON / [...] L5-S1. Lower thorax: No significant additional findings. Vegetable Packer (topogram) images: No significant additional findings. IMPRESSION: [...] be communicated with the ordering provider via [employer] staff message or phone message by [employer] within 2 business days of report finalization. Algorithms for management of incidental imaging findings can be found on the [facility] Intranet Sharepoint site at: [email or web address] [email or web address] [email or web address] Director Athletic: ROBERTA Transcribe Date/Time: Jun 29 2020 1:50P Dictated by : LUIS BADILLO MD This examination was interpreted and the report reviewed and electronically signed by: LUIS BADILLO MD on Jun 29 2020 2:03PM EST ACTIONABLE Normal [facility] Otheron 05-14-2020 [facility] XR SHLDR >/=3V AP/KRISHNA AP/OTH R LTon [...] IMPRESSION: Mild osteoarthritis of the acromioclavicular joint. Director Athletic: [facility] Transcribe Date/Time: May 14 2020 3:04P Dictated by : AJ SUN MD This examination was interpreted and the report reviewed and electronically signed by: AJ SUN MD on May 14 2020 3:05PM EST Normal [facility] Metabolic Panelon 04-27-2020 Glucose [Mass/Vol] 230 mg/dL Abnormal 65 - 100 mg/dL [facility] Otheron 04-27-2020 Quality Check Yes [facility] Otheron 02-17-2020 [facility] XR LUMBAR 3V AP/LAT/L5-S1on 02-17-2020 XR LUMBAR [...] osseous abnormalities. 2. Moderate multilevel degenerative changes. Director Athletic: ROBERTA Transcribe Date/Time: Feb 17 2020 2:33P Dictated by : AKIN DUDLEY MD This examination was interpreted and the report reviewed and electronically signed by: AKIN DUDLEY MD on Feb 17 2020 2:36PM EST Normal [facility] No Panel Information [facility] Vital Signs Date Time Vital Sign Value Performing Clinician Faci lity 11-29-2024 13:46-0400 Body temperature 97.81 [degF] Omid Adames MD Work Phone: [employer] 11-29-2024 13:46-0400 Diastolic blood pressure 83 mm[Hg] Omid Adames MD Work Phone: [email or web address] 11-29-2024 13:46-0400 Heart rate 85 /min Omid Adames MD Work Phone: [email or web address] 11-29-2024 13:46-0400 Respiratory rate 17 /min Omid Adames MD Work Phone: [email or web address] 11-29-2024 13:46-0400 Systolic blood pressure 153 mm[Hg] Omid Adames MD Work Phone: [email or web address] 11-29-2024 03:00-0400 Body mass index (BMI) [Ratio] 38.02 kg/m2 Omid Adames MD Work Phone: [employer] 11-29-2024 03:00-0400 Body weight 120.2 kg Omid Adames MD Work Phone: [email or web address] 11-28-2024 20:22-0400 SaO2% (BldA) [Mass fraction] 91 % Omid Adames MD Work Phone: [email or web address] 11-28-2024 13:58-0400 Body height 177.8 cm Omid Adames MD Work Phone: [email or web address] 07-10-2024 14:11-0400 Body height 172.7 cm Jose Dudley MD Work Phone: [facility] 07-10-2024 14:11-0400 Body mass index (BMI) [Ratio] 38.62 kg/m2 Jose Dudley MD Work Phone: [facility] 07-10-2024 14:11-0400 Body temperature 97.9 [degF] Jose Dudley MD Work Phone: [facility] 07-10-2024 14:11-0400 Body weight 115.21 kg Jose Dudley MD Work Phone: [facility] 07-10-2024 14:11-0400 Diastolic blood pressure 91 mm[Hg] Jose Dudley MD Work Phone: [facility] 07-10-2024 14:11-0400 Heart rate 84 /min Jose Dudley MD Work Phone: [facility] 07-10-2024 14:11-0400 SaO2% (BldA) [Mass fraction] 98 % Jose Dudley MD Work Phone: [facility] 07-10-2024 14:11-0400 Systolic blood pressure 168 mm[Hg] Jose Dudley MD Work Phone: [facility] 05-13-2024 12:02-0500 Diastolic blood pressure 91 mm[Hg] Artem Ahmadi MD Work Phone: [facility] 05-13-2024 12:02-0500 Heart rate 76 /min Artem Ahmadi MD Work Phone: [facility] 05-13-2024 12:02-0500 Respiratory rate 14 /min Artem Ahmadi MD Work Phone: [facility] 05-13-2024 12:02-0500 SaO2% (BldA) [Mass fraction] 97 % Artem Ahmadi MD Work Phone: [facility] 05-13-2024 12:02-0500 Systolic blood pressure 179 mm[Hg] Artem Ahmadi MD Work Phone: [facility] 05-13-2024 11:46-0500 Body temperature 97.39 [degF] Artem Ahmadi MD Work Phone: [facility] 01-24-2024 13:45-0400 Body height 172.7 cm Jose Dudley MD Work Phone: [facility] 01-24-2024 13:45-0400 Body mass index (BMI) [Ratio] 35.58 kg/m2 Jose Dudley MD Work Phone: [facility] 01-24-2024 13:45-0400 Body weight 106.14 kg Jose Dudley MD Work Phone: [facility] 01-24-2024 13:45-0400 Diastolic blood pressure 98 mm[Hg] Jose Dudley MD Work Phone: [facility] 01-24-2024 13:45-0400 Heart rate 75 /min Jose Dudley MD Work Phone: [facility] 01-24-2024 13:45-0400 Systolic blood pressure 192 mm[Hg] Jose Dudley MD Work Phone: [facility] 11-20-2023 10:53-0400 Diastolic blood pressure 74 mm[Hg] Noé Russfener PT Work Phone: [facility] 11-20-2023 10:53-0400 Heart rate 80 /min Noé Rufener PT Work Phone: [facility] 11-20-2023 10:53-0400 Respiratory rate 16 /min Noé Rufener PT Work Phone: [facility] 11-20-2023 10:53-0400 SaO2% (BldA) [Mass fraction] 98 % Noé Rufener PT Work Phone: [facility] 11-20-2023 10:53-0400 Systolic blood pressure 134 mm[Hg] Noé Rufener PT Work Phone: [facility] 11-20-2023 10:22-0400 Body temperature 98.4 [degF] Noé Namsoniya PT Work Phone: [facility] 11-16-2023 14:25-0400 Body temperature 98.2 [degF] Eda Bright RN Work Phone: [facility] 11-16-2023 14:25-0400 Diastolic blood pressure 80 mm[Hg] Eda Bright RN Work Phone: [facility] 11-16-2023 14:25-0400 Heart rate 80 /min Eda Bright RN Work Phone: [facility] 11-16-2023 14:25-0400 Respiratory rate 18 /min Eda Bright RN Work Phone: [facility] 11-16-2023 14:25-0400 SaO2% (BldA) [Mass fraction] 97 % Eda Bright RN Work Phone: [facility] 11-16-2023 14:25-0400 Systolic blood pressure 136 mm[Hg] Eda Bright RN Work Phone: [facility] 11-14-2023 10:30-0400 Diastolic blood pressure 74 mm[Hg] Prinston Hairston MINE PRODUCTION ENGINEER Work Phone: [facility] Comment on above: exertion 11-14-2023 10:30-0400 Heart rate 83 /min Prinston Hairston MINE PRODUCTION ENGINEER Work Phone: [facility] 11-14-2023 10:30-0400 Respiratory rate 19 /min Prinston Hairston MINE PRODUCTION ENGINEER Work Phone: [facility] 11-14-2023 10:30-0400 SaO2% (BldA) [Mass fraction] 97 % Prinston Hairston MINE PRODUCTION ENGINEER Work Phone: [facility] 11-14-2023 10:30-0400 Systolic blood pressure 140 mm[Hg] Prinston Hairston MINE PRODUCTION ENGINEER Work Phone: [facility] Comment on above: exertion 11-14-2023 09:57-0400 Body temperature 97.9 [degF] Prinston Hairston MINE PRODUCTION ENGINEER Work Phone: [facility] 11-13-2023 09:22-0400 Body temperature 97.9 [degF] Keyla Fernanda OT/L Work Phone: [facility] 11-13-2023 09:22-0400 Diastolic blood pressure 82 mm[Hg] Keyla Fernanda OT/L Work Phone: [facility] 11-13-2023 09:22-0400 Heart rate 79 /min Keyla Fernanda OT/L Work Phone: [facility] 11-13-2023 09:22-0400 Respiratory rate 18 /min Keyla Fernanda OT/L Work Phone: [facility] 11-13-2023 09:22-0400 SaO2% (BldA) [Mass fraction] 98 % Keyla Fernanda OT/L Work Phone: [facility] 11-13-2023 09:22-0400 Systolic blood pressure 140 mm[Hg] Keyla Fernanda OT/L Work Phone: [facility] 11-10-2023 15:55-0400 Body temperature 98.1 [degF] Eda Bright RN Work Phone: [facility] 11-10-2023 15:55-0400 Diastolic blood pressure 78 mm[Hg] Eda Bright RN Work Phone: [facility] 11-10-2023 15:55-0400 Heart rate 80 /min Eda Bright RN Work Phone: [facility] 11-10-2023 15:55-0400 Respiratory rate 20 /min Eda Bright RN Work Phone: [facility] 11-10-2023 15:55-0400 SaO2% (BldA) [Mass fraction] 98 % Eda Bright RN Work Phone: [facility] 11-10-2023 15:55-0400 Systolic blood pressure 136 mm[Hg] Eda Bright RN Work Phone: [facility] 11-09-2023 09:09-0400 Diastolic blood pressure 84 mm[Hg] Prinston Hairston MINE PRODUCTION ENGINEER Work Phone: [facility] Comment on above: exertion 11-09-2023 09:09-0400 Heart rate 83 /min Prinston Hairston MINE PRODUCTION ENGINEER Work Phone: [facility] 11-09-2023 09:09-0400 Respiratory rate 16 /min Prinston Hairston MINE PRODUCTION ENGINEER Work Phone: [facility] 11-09-2023 09:09-0400 SaO2% (BldA) [Mass fraction] 98 % Prinston Hairston MINE PRODUCTION ENGINEER Work Phone: [facility] 11-09-2023 09:09-0400 Systolic blood pressure 132 mm[Hg] Prinston Hairston MINE PRODUCTION ENGINEER Work Phone: [facility] Comment on above: exertion 11-09-2023 08:46-0400 Body temperature 98.01 [degF] Prinston Hairston MINE PRODUCTION ENGINEER Work Phone: [facility] 11-07-2023 14:46-0400 Diastolic blood pressure 76 mm[Hg] Prinston Hairston MINE PRODUCTION ENGINEER Work Phone: [facility] Comment on above: exertion 11-07-2023 14:46-0400 Heart rate 84 /min Prinston Hairston MINE PRODUCTION ENGINEER Work Phone: [facility] 11-07-2023 14:46-0400 Respiratory rate 18 /min Prinston Hairston MINE PRODUCTION ENGINEER Work Phone: [facility] 11-07-2023 14:46-0400 SaO2% (BldA) [Mass fraction] 98 % Prinston Hairston MINE PRODUCTION ENGINEER Work Phone: [facility] 11-07-2023 14:46-0400 Systolic blood pressure 140 mm[Hg] Prinston Hairston MINE PRODUCTION ENGINEER Work Phone: [facility] Comment on above: exertion 11-07-2023 14:15-0400 Body temperature 98.49 [degF] Prinston Hairston MINE PRODUCTION ENGINEER Work Phone: [facility] 11-06-2023 09:10-0400 Body temperature 98.2 [degF] Keyla Fernanda OT/L Work Phone: [facility] 11-06-2023 09:10-0400 Diastolic blood pressure 70 mm[Hg] Keyla Fernanda OT/L Work Phone: [facility] 11-06-2023 09:10-0400 Heart rate 77 /min Keyla Fernanda OT/L Work Phone: [facility] 11-06-2023 09:10-0400 Respiratory rate 18 /min Keyla Fernanda OT/L Work Phone: [facility] 11-06-2023 09:10-0400 SaO2% (BldA) [Mass fraction] 97 % Keyla Fernanda OT/L Work Phone: [facility] 11-06-2023 09:10-0400 Systolic blood pressure 128 mm[Hg] Keyla Fernanda OT/L Work Phone: [facility] 11-03-2023 15:53-0400 Body temperature 97.39 [degF] Eda Bright RN Work Phone: [facility] 11-03-2023 15:53-0400 Diastolic blood pressure 78 mm[Hg] Eda Bright RN Work Phone: [facility] 11-03-2023 15:53-0400 Heart rate 68 /min Eda Bright RN Work Phone: [facility] 11-03-2023 15:53-0400 Respiratory rate 20 /min Eda Bright RN Work Phone: [facility] 11-03-2023 15:53-0400 SaO2% (BldA) [Mass fraction] 98 % Eda Bright RN Work Phone: [facility] 11-03-2023 15:53-0400 Systolic blood pressure 138 mm[Hg] Eda Bright RN Work Phone: [facility] 11-02-2023 15:42-0400 Diastolic blood pressure 76 mm[Hg] Renea Puentesaver MINE PRODUCTION ENGINEER Work Phone: [facility] 11-02-2023 15:42-0400 Heart rate 70 /min Renea Puentesaver MINE PRODUCTION ENGINEER Work Phone: [facility] 11-02-2023 15:42-0400 Respiratory rate 16 /min Renea Hairston MINE PRODUCTION ENGINEER Work Phone: [facility] 11-02-2023 15:42-0400 SaO2% (BldA) [Mass fraction] 98 % Renea Hairston MINE PRODUCTION ENGINEER Work Phone: [facility] 11-02-2023 15:42-0400 Systolic blood pressure 136 mm[Hg] Renea Hairston MINE PRODUCTION ENGINEER Work Phone: [facility] 11-02-2023 15:15-0400 Body temperature 97.7 [degF] Renea Hairston MINE PRODUCTION ENGINEER Work Phone: [facility] 10-31-2023 15:25-0400 Body temperature 97.39 [degF] Eda Bright RN Work Phone: [facility] 10-31-2023 15:25-0400 Diastolic blood pressure 78 mm[Hg] Eda Bright RN Work Phone: [facility] 10-31-2023 15:25-0400 Heart rate 76 /min Eda Bright RN Work Phone: [facility] 10-31-2023 15:25-0400 Respiratory rate 18 /min Eda Birght RN Work Phone: [facility] 10-31-2023 15:25-0400 SaO2% (BldA) [Mass fraction] 98 % Eda Bright RN Work Phone: [facility] 10-31-2023 15:25-0400 Systolic blood pressure 144 mm[Hg] Eda Bright RN Work Phone: [facility] 10-30-2023 09:20-0400 Body temperature 98.4 [degF] Keyla Fernanda OT/L Work Phone: [facility] 10-30-2023 09:20-0400 Diastolic blood pressure 78 mm[Hg] Keyla Fernanda OT/L Work Phone: [facility] 10-30-2023 09:20-0400 Heart rate 76 /min Keyla Fernanda OT/L Work Phone: [facility] 10-30-2023 09:20-0400 Respiratory rate 18 /min Keyla Fernanda OT/L Work Phone: [facility] 10-30-2023 09:20-0400 SaO2% (BldA) [Mass fraction] 97 % Keyla Fernanda OT/L Work Phone: [facility] 10-30-2023 09:20-0400 Systolic blood pressure 132 mm[Hg] Keyla Fernanda OT/L Work Phone: [facility] 10-28-2023 12:58-0400 Diastolic blood pressure 79 mm[Hg] Zohaib Giffels PT Work Phone: [facility] 10-28-2023 12:58-0400 Heart rate 80 /min Zohaib Giffels PT Work Phone: [facility] 10-28-2023 12:58-0400 Respiratory rate 18 /min Zohaib Giffels PT Work Phone: [facility] 10-28-2023 12:58-0400 SaO2% (BldA) [Mass fraction] 98 % Zohaib Giffels PT Work Phone: [facility] 10-28-2023 12:58-0400 Systolic blood pressure 141 mm[Hg] Zohaib Giffels PT Work Phone: [facility] 10-28-2023 12:33-0400 Body temperature 98.29 [degF] Zohaib Giffels PT Work Phone: [facility] 10-27-2023 10:17-0400 Body temperature 98.4 [degF] Keyla Fernanda OT/L Work Phone: [facility] 10-27-2023 10:17-0400 Diastolic blood pressure 64 mm[Hg] Keyla Fernanda OT/L Work Phone: [facility] 10-27-2023 10:17-0400 Heart rate 83 /min Keyla Fernanda OT/L Work Phone: [facility] 10-27-2023 10:17-0400 Respiratory rate 18 /min Keyla Fernanda OT/L Work Phone: [facility] 10-27-2023 10:17-0400 SaO2% (BldA) [Mass fraction] 99 % Keyla Fernanda OT/L Work Phone: [facility] 10-27-2023 10:17-0400 Systolic blood pressure 148 mm[Hg] Keyla Fernanda OT/L Work Phone: [facility] 10-26-2023 09:59-0400 Body temperature 98.01 [degF] Eda Bright RN Work Phone: [facility] 10-26-2023 09:59-0400 Diastolic blood pressure 74 mm[Hg] Eda Bright RN Work Phone: [facility] 10-26-2023 09:59-0400 Heart rate 76 /min Eda Bright RN Work Phone: [facility] 10-26-2023 09:59-0400 Respiratory rate 18 /min Eda Bright RN Work Phone: [facility] 10-26-2023 09:59-0400 SaO2% (BldA) [Mass fraction] 98 % Eda Bright RN Work Phone: [facility] 10-26-2023 09:59-0400 Systolic blood pressure 136 mm[Hg] Eda Bright RN Work Phone: [facility] 10-22-2023 11:58-0400 Body height 172.7 cm Nguyen Whitaker RN Work Phone: [facility] 10-22-2023 11:58-0400 Body mass index (BMI) [Ratio] 37.89 kg/m2 Nguyenleon Whitaker RN Work Phone: [facility] 10-22-2023 11:58-0400 Body temperature 97.2 [degF] Nguyenleon Whitaker RN Work Phone: [facility] 10-22-2023 11:58-0400 Body weight 113.04 kg Nguyenleon Whitaker RN Work Phone: [facility] 10-22-2023 11:58-0400 Diastolic blood pressure 86 mm[Hg] Nguyenleon Whitaker RN Work Phone: [facility] 10-22-2023 11:58-0400 Heart rate 84 /min Nguyenleon Whitaker RN Work Phone: [facility] 10-22-2023 11:58-0400 Respiratory rate 16 /min Nguyenleon Whitaker RN Work Phone: [facility] 10-22-2023 11:58-0400 SaO2% (BldA) [Mass fraction] 98 % Nguyenleon Whitaker RN Work Phone: [facility] 10-22-2023 11:58-0400 Systolic blood pressure 144 mm[Hg] Nguyenleon Whitaker RN Work Phone: [facility] 07-12-2023 14:16-0400 Body height 177.8 cm Noé Kennedy MD Work Phone: [facility] 07-12-2023 14:16-0400 Body weight 108.86 kg Noé Kennedy MD Work Phone: [facility] 05-23-2023 11:08-0500 Body height 177.8 cm Mónica Peterson MD Work Phone: [facility] 05-23-2023 11:08-0500 Body weight 109.2 kg Mónica Peterson MD Work Phone: [facility] 05-23-2023 11:08-0500 Diastolic blood pressure 109 mm[Hg] Mónica Peterson MD Work Phone: [facility] 05-23-2023 11:08-0500 Heart rate 97 /min Mónica Peterson MD Work Phone: [facility] 05-23-2023 11:08-0500 Respiratory rate 16 /min Mónica Peterson MD Work Phone: [facility] 05-23-2023 11:08-0500 SaO2% (BldA) [Mass fraction] 99 % Mónica Peterson MD Work Phone: [facility] 05-23-2023 11:08-0500 Systolic blood pressure 195 mm[Hg] Mónica Peterson MD Work Phone: [facility] 01-23-2023 14:18-0400 Body height 177.8 cm Mark Godinez MD Work Phone: [facility] 01-23-2023 14:18-0400 Body weight 113.85 kg Mark Godinez MD Work Phone: [facility] 01-23-2023 14:18-0400 Respiratory rate 18 /min Mark Godinez MD Work Phone: [facility] 12-23-2022 15:46-0400 Body height 177.8 cm Belgica Vega DO Work Phone: [facility] 12-23-2022 15:46-0400 Body weight 114.76 kg Belgica Vega DO Work Phone: [facility] 12-23-2022 15:46-0400 Diastolic blood pressure 91 mm[Hg] Belgica Vega DO Work Phone: [facility] 12-23-2022 15:46-0400 Heart rate 91 /min Belgica Vega DO Work Phone: [facility] 12-23-2022 15:46-0400 Systolic blood pressure 153 mm[Hg] Belgica Vega DO Work Phone: [facility] 11-04-2022 15:04-0400 Body height 177.8 cm Belgica Vega DO Work Phone: [facility] 11-04-2022 15:04-0400 Body weight 117.48 kg Belgica Vega DO Work Phone: [facility] 11-04-2022 15:04-0400 Diastolic blood pressure 82 mm[Hg] Belgica Vega DO Work Phone: [facility] 11-04-2022 15:04-0400 Heart rate 99 /min Belgica Vega DO Work Phone: [facility] 11-04-2022 15:04-0400 Systolic blood pressure 142 mm[Hg] Belgica Vega DO Work Phone: [facility] 11-02-2022 14:18-0400 Body height 177.8 cm Noé Kennedy MD Work Phone: [facility] 11-02-2022 14:18-0400 Body weight 115.67 kg Noé Kennedy MD Work Phone: [facility] 11-02-2022 14:18-0400 Heart rate 90 /min Noé Kennedy MD Work Phone: [facility] 11-02-2022 14:18-0400 SaO2% (BldA) [Mass fraction] 96 % Noé Kennedy MD Work Phone: [facility] 10-13-2022 09:290400 Body height 177.8 cm Sukumar Toney MD Work Phone: [facility] 10-13-2022 09:29-0400 Body weight 115.67 kg Sukumar Toney MD Work Phone: [facility] 10-13-2022 09:29-0400 Diastolic blood pressure 93 mm[Hg] Sukumar oTney MD Work Phone: [facility] 10-13-2022 09:29-0400 Heart rate 90 /min Sukumar Toney MD Work Phone: [facility] 10-13-2022 09:29-0400 SaO2% (BldA) [Mass fraction] 96 % Sukumar Toney MD Work Phone: [facility] 10-13-2022 09:29-0400 Systolic blood pressure 165 mm[Hg] Sukumar Toney MD Work Phone: [facility] 10-10-2022 13:32-0400 Body height 177.8 cm Mark Godinez MD Work Phone: [facility] 10-10-2022 13:32-0400 Body weight 115.21 kg Mark Godinez MD Work Phone: [facility] 10-10-2022 13:32-0400 Respiratory rate 16 /min Mark Godinez MD Work Phone: [facility] 09-28-2022 11:05-0400 Body height 177.8 cm Belgica Vega DO Work Phone: [facility] 09-28-2022 11:05-0400 Body weight 115.21 kg Belgica Vega DO Work Phone: [facility] 09-28-2022 11:05-0400 Diastolic blood pressure 81 mm[Hg] Belgica Vega DO Work Phone: [facility] 09-28-2022 11:05-0400 Heart rate 101 /min Belgica Vega DO Work Phone: [facility] 09-28-2022 11:05-0400 Systolic blood pressure 135 mm[Hg] Belgica Vega DO Work Phone: [facility] 09-23-2022 15:27-0400 Body height 177.8 cm Binh Peiffer DO Work Phone: [facility] 09-23-2022 15:27-0400 Body weight 115.21 kg Binh Peiffer DO Work Phone: [facility] 09-23-2022 15:27-0400 Respiratory rate 16 /min Binh Peiffer DO Work Phone: [facility] 09-02-2022 13:34-0400 Body height 177.8 cm Binh Peiffer DO Work Phone: [facility] 09-02-2022 13:34-0400 Body weight 115.21 kg Binh Peiffer DO Work Phone: [facility] 09-02-2022 13:34-0400 Respiratory rate 20 /min Binh Peiffer DO Work Phone: [facility] 08-12-2022 15:35-0400 Body height 177.8 cm Belgica Vega DO Work Phone: [facility] 08-12-2022 15:35-0400 Body weight 115.21 kg Belgica Vega DO Work Phone: [facility] 08-12-2022 15:35-0400 Diastolic blood pressure 92 mm[Hg] Belgica Vega DO Work Phone: [facility] 08-12-2022 15:35-0400 Heart rate 98 /min Belgica Vega DO Work Phone: [facility] 08-12-2022 15:35-0400 Systolic blood pressure 156 mm[Hg] Belgica Vega DO Work Phone: [facility] 07-01-2022 12:59-0400 Body height 177.8 cm Binh Peiffer DO Work Phone: [facility] 07-01-2022 12:59-0400 Body weight 117.94 kg Binh Peiffer DO Work Phone: [facility] 07-01-2022 12:59-0400 Respiratory rate 18 /min Binh Peiffer DO Work Phone: [facility] 06-29-2022 16:59-0400 Diastolic blood pressure 84 mm[Hg] Belgica Vega DO Work Phone: [facility] 06-29-2022 16:59-0400 Systolic blood pressure 144 mm[Hg] Belgica Vega DO Work Phone: [facility] 06-29-2022 15:58-0400 Body height 177.8 cm Belgica Vega DO Work Phone: [facility] 06-29-2022 15:58-0400 Body weight 117.48 kg Belgica Vega DO Work Phone: [facility] 06-29-2022 15:58-0400 Heart rate 92 /min Belgica Vega DO Work Phone: [facility] 06-01-2022 10:44-0500 Body height 177.8 cm Rory Mendoza MD Work Phone: [facility] 06-01-2022 10:44-0500 Body temperature 97 [degF] Rory Mendoza MD Work Phone: [facility] 06-01-2022 10:44-0500 Body weight 116.12 kg Rory Mendoza MD Work Phone: [facility] 06-01-2022 10:44-0500 Diastolic blood pressure 74 mm[Hg] Rory Mendoza MD Work Phone: [facility] 06-01-2022 10:44-0500 Heart rate 91 /min Rory Mendoza MD Work Phone: [facility] 06-01-2022 10:44-0500 SaO2% (BldA) [Mass fraction] 96 % Rory Mendoza MD Work Phone: [facility] 06-01-2022 10:44-0500 Systolic blood pressure 153 mm[Hg] Rory Mendoza MD Work Phone: [facility] 05-18-2022 15:02-0500 Body height 177.8 cm Belgica Vega DO Work Phone: [facility] 05-18-2022 15:02-0500 Body weight 116.12 kg Belgica Vega DO Work Phone: [facility] 05-18-2022 15:02-0500 Diastolic blood pressure 85 mm[Hg] Belgica Vega DO Work Phone: [facility] 05-18-2022 15:02-0500 Heart rate 101 /min Belgica Vega DO Work Phone: [facility] 05-18-2022 15:02-0500 Systolic blood pressure 134 mm[Hg] Belgica Vega DO Work Phone: [facility] 05-04-2022 13:59-0500 Body height 177.8 cm Noé Kennedy MD Work Phone: [facility] 05-04-2022 13:59-0500 Body weight 116.12 kg Noé Kennedy MD Work Phone: [facility] 04-13-2022 16:46-0500 Diastolic blood pressure 90 mm[Hg] Belgica Vega DO Work Phone: [facility] 04-13-2022 16:46-0500 Heart rate 97 /min Belgica Vega DO Work Phone: [facility] 04-13-2022 16:46-0500 Systolic blood pressure 155 mm[Hg] Belgica Vega DO Work Phone: [facility] 04-13-2022 15:49-0500 Body height 177.8 cm Belgica Vega DO Work Phone: [facility] 04-13-2022 15:49-0500 Body weight 116.12 kg Belgica Vega DO Work Phone: [facility] 03-01-2022 15:39-0500 Diastolic blood pressure 86 mm[Hg] Belgica Vega DO Work Phone: [facility] 03-01-2022 15:39-0500 Systolic blood pressure 146 mm[Hg] Belgica Vega DO Work Phone: [facility] 03-01-2022 14:51-0500 Body height 177.8 cm Belgica Vega DO Work Phone: [facility] 03-01-2022 14:51-0500 Body weight 115.67 kg Belgica Vega DO Work Phone: [facility] 03-01-2022 14:51-0500 Heart rate 96 /min Belgica Vega DO Work Phone: [facility] 01-17-2022 14:18-0400 Body height 177.8 cm Billy Cody MD Work Phone: [facility] 01-17-2022 14:18-0400 Body weight 115.67 kg Billy Cody MD Work Phone: [facility] 01-17-2022 14:18-0400 Diastolic blood pressure 85 mm[Hg] Billy Cody MD Work Phone: [facility] 01-17-2022 14:18-0400 Heart rate 90 /min Billy Cody MD Work Phone: [facility] 01-17-2022 14:18-0400 SaO2% (BldA) [Mass fraction] 95 % Billy Cody MD Work Phone: [facility] 01-17-2022 14:18-0400 Systolic blood pressure 165 mm[Hg] Billy Cody MD Work Phone: [facility] 01-03-2022 15:20-0400 Body height 177.8 cm Belgica Vega DO Work Phone: [facility] 01-03-2022 15:20-0400 Body weight 115.67 kg Belgica Vega DO Work Phone: [facility] 01-03-2022 15:20-0400 Diastolic blood pressure 85 mm[Hg] Belgica Vega DO Work Phone: [facility] 01-03-2022 15:20-0400 Heart rate 94 /min Belgica Vega DO Work Phone: [facility] 01-03-2022 15:20-0400 Systolic blood pressure 141 mm[Hg] Belgica Vega DO Work Phone: [facility] 11-05-2021 17:01-0400 Diastolic blood pressure 94 mm[Hg] Belgica Vega DO Work Phone: [facility] 11-05-2021 17:01-0400 Heart rate 85 /min Belgica Vega DO Work Phone: [facility] 11-05-2021 17:01-0400 Systolic blood pressure 160 mm[Hg] Belgica Vega DO Work Phone: [facility] 11-05-2021 16:12-0400 Body height 177.8 cm Belgica Vega DO Work Phone: [facility] 11-05-2021 16:12-0400 Body weight 122.02 kg Belgica Vega DO Work Phone: [facility] 10-27-2021 13:41-0400 Body height 177.8 cm Noé Kennedy MD Work Phone: [facility] 10-27-2021 13:41-0400 Body weight 122.02 kg Noé Kennedy MD Work Phone: [facility] 10-05-2021 15:06-0400 Body height 177.8 cm Belgica Vega DO Work Phone: [facility] 10-05-2021 15:06-0400 Body temperature 98.2 [degF] Belgica Vega DO Work Phone: [facility] 10-05-2021 15:06-0400 Body weight 117.94 kg Belgica Vega DO Work Phone: [facility] 10-05-2021 15:06-0400 Diastolic blood pressure 80 mm[Hg] Belgica Vega DO Work Phone: [facility] 10-05-2021 15:06-0400 Heart rate 78 /min Belgica Vega DO Work Phone: [facility] 10-05-2021 15:06-0400 SaO2% (BldA) [Mass fraction] 99 % Belgica Vega DO Work Phone: [facility] 10-05-2021 15:06-0400 Systolic blood pressure 130 mm[Hg] Belgica Vgea DO Work Phone: [facility] 09-20-2021 13:20-0400 Body height 177.8 cm Belgica Vega DO Work Phone: [facility] 09-20-2021 13:20-0400 Body temperature 98.29 [degF] Belgica Vega DO Work Phone: [facility] 09-20-2021 13:20-0400 Body weight 117.94 kg Belgica Vega DO Work Phone: [facility] 09-20-2021 13:20-0400 Diastolic blood pressure 84 mm[Hg] Belgica Vega DO Work Phone: [facility] 09-20-2021 13:20-0400 Heart rate 99 /min Belgica Vega DO Work Phone: [facility] 09-20-2021 13:20-0400 Systolic blood pressure 143 mm[Hg] Belgica Vega DO Work Phone: [facility] 08-11-2021 15:56-0400 Body height 177.8 cm Belgica Vega DO Work Phone: [facility] 08-11-2021 15:56-0400 Body temperature 98.29 [degF] Belgica Vega DO Work Phone: [facility] 08-11-2021 15:56-0400 Body weight 122.47 kg Belgica Vega DO Work Phone: [facility] 08-11-2021 15:56-0400 Diastolic blood pressure 79 mm[Hg] Belgica Vega DO Work Phone: [facility] 08-11-2021 15:56-0400 Heart rate 94 /min Belgica Vega DO Work Phone: [facility] 08-11-2021 15:56-0400 Systolic blood pressure 127 mm[Hg] Belgica Vega DO Work Phone: [facility] 05-28-2020 16:04-0500 Body Temperature 97.59 [degF] Belgica Herrera [facility] 05-28-2020 16:04-0500 Body weight 122.33 kg Belgica Herrera [facility] 05-28-2020 16:04-0500 Height 177.8 cm Belgica Herrera [facility] 05-28-2020 16:04-0500 Pulse Oximetry 98 % Belgica Herrera [facility] 05-28-2020 16:04-0500 Respiratory Rate 16 /min Belgica Herrera [facility] 04-27-2020 16:37-0500 BP Diastolic 90 mm[Hg] Belgica Herrera [facility] 04-27-2020 16:37-0500 BP Systolic 155 mm[Hg] Belgica [facility] 04-27-2020 16:37-0500 Pulse (Heart Rate) 86 /min Belgica [facility] 04-27-2020 15:54-0500 Body Temperature 98.6 [degF] Belgica [facility] 04-27-2020 15:54-0500 Body weight 123.11 kg Belgica [facility] 04-27-2020 15:54-0500 Height 178.5 cm Belgica [facility] 04-27-2020 15:54-0500 Pulse Oximetry 98 % Belgica [facility] 04-27-2020 15:54-0500 Respiratory Rate 18 /min Belgica [facility] 03-23-2020 15:44-0500 Body Temperature 98.01 [degF] Belgica [facility] 03-23-2020 15:44-0500 Body weight 123.29 kg [facility] 03-23-2020 15:44-0500 BP Diastolic 89 mm[Hg] [facility] 03-23-2020 15:44-0500 BP Systolic 147 mm[Hg] [facility] 03-23-2020 15:44-0500 Height 178.5 cm [facility] 03-23-2020 15:44-0500 Pulse (Heart Rate) 85 /min Belgica [facility] 03-23-2020 15:44-0500 Pulse Oximetry 97 % Belgica [facility] 03-23-2020 15:44-0500 Respiratory Rate 18 /min Belgica [facility] 02-20-2020 15:01-0500 Body Temperature 98.2 [degF] [facility] 02-20-2020 15:01-0500 Body weight 120.02 kg [facility] 02-20-2020 15:01-0500 BP Diastolic 82 mm[Hg] [facility] 02-20-2020 15:01-0500 BP Systolic 144 mm[Hg] [facility] 02-20-2020 15:01-0500 Height 178.5 cm [facility] 02-20-2020 15:01-0500 Pulse (Heart Rate) 94 /min Belgica [facility] 02-20-2020 15:01-0500 Pulse Oximetry 97 % Belgica [facility] 02-20-2020 15:01-0500 Respiratory Rate 18 /min Belgicaluca Herrera [facility] 02-14-2020 16:24-0500 Body Temperature 98.1 [degF] Belgicaluca Herrera [facility] 02-14-2020 16:24-0500 Body weight 121.02 kg [facility] 02-14-2020 16:24-0500 BP Diastolic 93 mm[Hg] [facility] 02-14-2020 16:24-0500 BP Systolic 161 mm[Hg] [facility] 02-14-2020 16:24-0500 Height 176.5 cm [facility] 02-14-2020 16:24-0500 Pulse (Heart Rate) 93 /min Belgica [facility] 02-14-2020 16:24-0500 Pulse Oximetry 97 % [facility] 02-14-2020 16:24-0500 Respiratory Rate 18 /[facility] En[facility] Date Encounter Type Care Provider Facility Start: 02-10-2025 End: 02-10-2025 ambulatory BUNNY M ESTERLE Facility:[facility] Start: 02-10-2025 End: 02-10-2025 ambulatory BUNNY M ESTERLE Facility:[facility] Start: 02-04-2025 [facility] Start: 01-15-2025 [facility] Start: 11-25-2024 End: 11-29-2024 Evaluation and management of inpatient Omid Adames MD Work Phone: [facility] Comment on above: Chills (Primary Dx); Shakes; History of chronic renal failure; Elevated lactic acid level; Chronic pain syndrome Start: 10-14-2024 ambulatory Mahderecker Samlla OLS Facility:[facility] Start: 10-07-2024 End: 10-07-2024 ambulatory Brittaney LORENZO Facility:[facility] Start: 08-28-2024 End: 08-28-2024 ambulatory Brittaney Garcia MD [facility] Work Phone: Start: 08-28-2024 End: 08-28-2024 [facility] Start: 08-28-2024 End: 08-28-2024 ambulatory Brittaney LORENZO Facility:[facility] Start: 07-24-2024 End: 07-24-2024 Telephone encounter Claudia Chow LPN Work Phone: [facility] Comment on above: Home Care (Referral discarded ) Start: 07-16-2024 End: 07-16-2024 Telephone encounter Claudia Chow LPN Work Phone: [facility] Comment on above: Home Care (Confirmation Call ) Start: 07-12-2024 End: 07-12-2024 Telephone encounter Judith Cat LPN Work Phone: [facility] Comment on above: Home Care (MD to Follow) Start: 07-10-2024 End: 07-24-2024 Evaluation and management of inpatient JOSE DUDLEY Facility:[facility] Start: 07-10-2024 End: 07-10-2024 Office outpatient visit 40 minutes Jose Dudley MD Work Phone: [facility] [place] Comment on above: CKD stage G5/A3, GFR [...] Orders Only Jose Dudley MD Work Phone: [facility] Comment on above: [...] Follow-up encounter Artem Ahmadi MD Work Phone: [facility] Start: 05-14-2024 End: 05-14-2024 Follow-up encounter Artem Ahmadi MD Work Phone: [facility] Start: 05-13-2024 Encounter for other preprocedural examination ARTEM AHMADI [facility] Start: 05-13-2024 ambulatory ARTEM AHMADI Facility:[facility] Start: 05-13-2024 End: 05-13-2024 Preprocedural examination done Artem Ahmadi MD Work Phone: [facility] Start: 05-13-2024 End: 05-13-2024 Subsequent hospital visit by physician Artem Ahmadi MD Work Phone: [facility] Comment on above: History of rectal cancer [Z85.048] Start: 04-27-2024 End: 08-20-2024 ambulatory Ranid Eason RN [facility] Start: 04-27-2024 End: 08-20-2024 Patient encounter procedure Randi Eason RN [facility] Start: 04-26-2024 End: 04-26-2024 Telephone encounter Jose Dudley MD Work Phone: [facility] Comment on above: Results Start: 04-26-2024 End: 04-26-2024 ambulatory BUNNYAntonette SCOTT Facility:[facility] Start: 02-20-2024 End: 02-20-2024 Orders Only Artem Ahmadi MD Work Phone: [facility] Comment on above: History of rectal cancer (Primary Dx) Procedure (COLONOSCO PY) Start: 01-24-2024 End: 01-24-2024 ambulatory [facility] Facility:[facility] Start: 01-24-2024 End: 01-24-2024 Office outpatient visit 25 minutes Jose Dudley MD Work Phone: [facility] [place] Comment on above: Anemia of renal disease (Primary Dx); Stage 3b chronic kidney disease (HCC); Vitamin D deficiency; Other proteinuria; Chronic kidney disease-mineral and bone disorder; Diabetes mellitus with nephropathy (HCC); Dietary counseling and surveillance; Hyperkalemia; Hypertension, essential; Hyperuricemia; Secondary renal hyperparathyroidism (HCC) Start: 12-22-2023 End: 12-22-2023 Telephone encounter Noé Kennedy MD Work Phone: [facility] Start: 12-18-2023 End: 12-18-2023 Telephone encounter Artem Ahmadi MD Work Phone: [facility] Comment on above: Schedule Colonoscopy Start: 12-08-2023 End: 03-08-2024 Transcribe Orders Florentin Gutierrez MD Work Phone: [facility] Scheduling Comment on above: Other specified postprocedural states (P rimary Dx); Spinal stenosis, lumbar region with neurogenic claudication Start: 11-20-2023 End: 11-20-2023 Home visit Noé Maldonado PT Work Phone: [facility] Comment on above: PT AGENCY DC W VISIT Start: 11-17-2023 Telephone encounter Noé Maldonado PT Work Phone: [facility] Comment on above: Home Care (Unmade P.T. visit) Start: 11-17-2023 End: 11-17-2023 Home visit Simeon Hinds RN Work Phone: [facility] Comment on above: CARE COORDINATION PT [place] VISIT Start: 11-16-2023 End: 11-16-2023 Home visit Eda Bright RN Work Phone: [facility] Comment on above: SN DISC DC W VISIT Start: 11-15-2023 End: 11-15-2023 Home visit Nan Carrion FILTER PLANT OPERATOR Work Phone: [facility] Comment on above: REGIONAL BUSINESS DEVELOPMENT MANAGER CARE COORDINATION CARE COORDINATION Start: 11-14-2023 End: 11-14-2023 Home visit Renea Hairston MINE PRODUCTION ENGINEER Work Phone: [facility] Comment on above: MINE PRODUCTION ENGINEER ROUTINE REGIONAL BUSINESS DEVELOPMENT MANAGER CARE COORDINATIO N Start: 11-13-2023 End: 11-13-2023 Home visit Keyla Fernanda OT/L Work Phone: [facility] Comment on above: OT DISC DC W VISIT Start: 11-10-2023 End: 11-10-2023 Home visit Eda Bright RN Work Phone: [facility] Comment on above: SN ROUTINE Start: 11-10-2023 End: 11-10-2023 ambulatory [facility] Start: 11-10-2023 End: 11-10-2023 Patient encounter procedure Bunny [facility] Clinical [facility] Start: 11-09-2023 End: 11-09-2023 Home visit Renea Hairston MINE PRODUCTION ENGINEER Work Phone: [facility] Comment on above: MINE PRODUCTION ENGINEER ROUTINE Start: 11-07-2023 End: 11-07-2023 Home visit Eda Bright RN Work Phone: [facility] Comment on above: SN UNMADE VISIT MINE PRODUCTION ENGINEER ROUTINE Start: 11-06-2023 End: 11-06-2023 Home visit Keyla Fernanda OT/L Work Phone: [facility] Comment on above: OT ROUTINE WITH BATH Start: 11-03-2023 End: 11-03-2023 Home visit Simeon Hinds RN Work Phone: [facility] Comment on above: CARE COORDINATION TELEPHONE CONTACT SN ROUTINE Start: 11-02-2023 End: 11-02-2023 Home visit Renea Hairston MINE PRODUCTION ENGINEER Work Phone: [facility] Comment on above: MINE PRODUCTION ENGINEER ROUTINE Start: 11-01-2023 End: 11-01-2023 Home visit Noé Namsoniya PT Work Phone: [facility] Comment on above: PT UNMADE VISIT Start: 10-31-2023 End: 10-31-2023 Home visit Eda Bright RN Work Phone: [facility] Comment on above: SN ROUTINE Start: 10-30-2023 End: 10-30-2023 Home visit Keyla Fernanda OT/L Work Phone: [facility] Comment on above: OT ROUTINE Start: 10-28-2023 Telephone encounter Zohaib Abel PT Work Phone: [facility] Comment on above: Erroneous encounter-disregard Start: 10-28-2023 End: 10-28-2023 Home visit Zohaib Abel PT Work Phone: [facility] Comment on above: PT EVAL Start: 10-27-2023 Telephone encounter Bunny Scott MD Work Phone: [facility] Comment on above: Home Care (Scheduling Confirmation (Eval uation visit)) Home Care (DELAY IN SERVICE) Start: 10-27-2023 End: 10-27-2023 Home visit Keyla Fernanda OT/L Work Phone: [facility] Comment on above: OT EVAL Start: 10-26-2023 End: 10-26-2023 Home visit Nan Burnelisabeth FILTER PLANT OPERATOR Work Phone: [facility] Comment on above: REGIONAL BUSINESS DEVELOPMENT MANAGER CARE COORDINATION REGIONAL BUSINESS DEVELOPMENT MANAGER EVAL SN ROUTINE Start: 10-24-2023 End: 10-24-2023 Home visit Nan Burnelisabeth FILTER PLANT OPERATOR Work Phone: [facility] Comment on above: REGIONAL BUSINESS DEVELOPMENT MANAGER CARE COORDINATION Start: 10-23-2023 End: 10-23-2023 Home visit Nan Sheyla FILTER PLANT OPERATOR Work Phone: [facility] Comment on above: REGIONAL BUSINESS DEVELOPMENT MANAGER CARE COORDINATION Start: 10-22-2023 End: 10-22-2023 Home visit Nguyen Whitaker RN Work Phone: [facility] Comment on above: SN SOC Start: 10-21-2023 Telephone encounter Nguyen Whitaker RN Work Phone: [facility] Start: 10-20-2023 Telephone encounter Bunny Scott MD Work Phone: [facility] Comment on above: Home Care Start: 10-12-2023 Telephone encounter Savannaaliya Learyosmany GARZA Work Phone: [facility] Comment on above: Home Care (MD to follow ) Home Care (Confirmat ion Call ) Start: 10-04-2023 End: 10-20-2023 Evaluation and management of inpatient BUNNY SCOTT Facility:[facility] Start: 08-01-2023 Telephone encounter Noé Kennedy MD Work Phone: Urology Start: 07-28-2023 Telephone encounter Mónica Peterson MD Work Phone: Endocrinology Comment on above: Patient Update Start: 07-12-2023 End: 07-12-2023 Patient encounter procedure Noé Kennedy MD Work Phone: Urology Comment on above: Nocturia (Primary Dx); Benign prostatic hyperplasia with nocturia; Screening PSA (prostate specific antigen) Start: 07-12-2023 End: 07-12-2023 ambulatory BUNNY SCOTT Facility:[facility] Start: 06-22-2023 End: 06-22-2023 Office outpatient visit 25 minutes Jose Dudley MD Work Phone: [facility] Comment on above: Anemia of renal disease (Primary Dx); Stage 3b chronic kidney disease (HCC); Vitamin D deficiency; Other proteinuria Start: 06-20-2023 Orders Only Jose Dudley MD Work Phone: [facility] Comment on above: Stage 3a chronic kidney disease (HCC) (P rimary Dx); Hypertension, essential; Vitamin D deficiency; Other proteinuria; Secondary hyperparathyroidism (HCC) Start: 06-12-2023 End: 06-13-2023 ambulatory BUNNY SCOTT Facility:[facility] Start: 05-23-2023 ambulatory Jen Bergman RN VNS Start: 05-23-2023 Coordination of care plan Jen Bergman RN Associate Research Scientist Comment on above: Supervisor Glycerin Chronic Care (D /C Care Coordination - Non-CC PCP) Start: 05-23-2023 End: 05-23-2023 Patient encounter procedure Mónica Peterson MD Work Phone: Endocrinology Comment on above: Poorly controlled type 2 diabetes [facility] ([facility]) Start: 05-19-2023 ambulatory Jen Bergman RN Associate Research Scientist Comment on above: Supervisor Glycerin Chronic Care (P CC f/u) Start: 05-12-2023 Telephone encounter Catracho Davis DO Work Phone: [facility] Comment on above: Appointment Start: 03-07-2023 Telephone encounter Mark Godinez MD Work Phone: [facility] Comment on above: Appointment Start: 01-27-2023 ambulatory Jen Bergman RN Associate Research Scientist Comment on above: Supervisor Glycerin Chronic Care (P CC f/u) Start: 01-23-2023 End: 01-23-2023 Patient encounter procedure Mark Godinez MD Work Phone: [facility] Comment on above: Primary osteoarthritis of left hip (Prim karin Dx) Start: 01-06-2023 Telephone encounter Mark Godinez MD Work Phone: [facility] Start: 12-23-2022 End: 12-23-2022 Patient encounter procedure Belgica Vega DO Work Phone: [facility] Comment on above: Hypertension, essential [...] Telephone encounter Belgica Vega DO Work Phone: [facility] Comment on above: Consult (Pain Management) Start: 12-01-2022 End: 12-01-2022 [facility] Comment on above: OTT (dyspnea on exertion) [R06.09] Precordial pain [R07 .2] Start: 11-24-2022 ambulatory Jen Bergman RN Associate Research Scientist Comment on above: Supervisor Glycerin Chronic Care (P CC f/u) Start: 11-14-2022 Telephone encounter Belgica Vega DO Work Phone: [facility] Comment on above: Medication Problem Start: 11-09-2022 Telephone encounter Candice Braun MD Work Phone: [facility] General Endocrinology, Diabetes, and Metabolism Comment on above: Appointment (New patient Referral) Start: 11-07-2022 Telephone encounter Belgica Vega DO Work Phone: [facility] Comment on above: Internal Referrals/resources (Neurology) Start: 11-04-2022 End: 11-04-2022 Patient encounter procedure Belgica Vega DO Work Phone: [facility] Comment on above: Cutaneous abscess [...] Telephone encounter Belgica Vega DO Work Phone: [facility] Comment on above: Consult (Endocrinology) Consult (Dermatology ) Appointment Start: 11-02-2022 End: 11-02-2022 Patient encounter procedure Noé Kennedy MD Work Phone: Urology Comment on above: Nocturia (Primary Dx); Benign prostatic hyperplasia with nocturia Start: 11-02-2022 Telephone encounter Belgica Brandon Je DO Work Phone: [facility] Comment on above: Results Start: 11-01-2022 Patient Outreach Jen Bergman RN Associate Research Scientist Comment on above: Supervisor Glycerin Chronic Care (P CC f/u); Transition Of Care (TCM f/u) Primary Care Coordin ator Chronic Care (Pt feels sick) Start: 10-28-2022 Telephone encounter Artem Ahmadi MD Work Phone: [facility] Comment on above: Results (Surgical pathology) Start: 10-14-2022 Telephone encounter Belgica Brandon Je DO Work Phone: [facility] Comment on above: Patient Question Start: 10-13-2022 End: 10-13-2022 Patient encounter procedure Sukumar Toney MD Work Phone: [facility] Comment on above: Precordial pain (Primary Dx); OTT (dyspnea on exertion); Primary hypertension; Dyslipidemia; Demand ischemia (HCC) Start: 10-12-2022 Patient Outreach Jen Bergman RN Associate Research Scientist Comment on above: Supervisor Glycerin Chronic Care (P CC f/u); Transition Of Care (TCM f/u) Start: 10-10-2022 End: 10-10-2022 Patient encounter procedure Mark oGdinez MD Work Phone: [facility] Comment on above: Pain in left hip (Primary Dx) Start: 10-03-2022 Patient Outreach Jen Bergman RN Associate Research Scientist Comment on above: Transition Of Care (TCM f/u); Primary Ca re Coordinator Chronic Care (PCC f/u) Start: 09-29-2022 Patient Outreach Jen Bergman RN Associate Research Scientist Comment on above: Supervisor Glycerin Chronic Care (P CC f/u); Transition Of Care (TCM f/u) Start: 09-28-2022 Telephone encounter Belgica Vega DO Work Phone: [facility] Comment on above: Consult (Cardio / [place] / Nephro) Start: 09-28-2022 End: 09-28-2022 Patient encounter procedure Belgica Vega DO Work Phone: [facility] Comment on above: Hospital discharge [...] encounter procedure Binh Lake DO Work Phone: [facility] Comment on above: Lumbar back pain with radiculopathy affe cting lower extremity (Primary Dx); Chronic bilateral low back pain with left-sided sciatica Start: 09-16-2022 End: 09-16-2022 Patient encounter procedure Meera Contreras OD Work Phone: [facility] Comment on above: Pseudophakia of both eyes (Primary Dx) Start: 09-05-2022 Telephone encounter Renetta Meza MD Work Phone: [facility] Comment on above: Appointment Start: 09-02-2022 End: 09-02-2022 Orders Only Artem Ahmadi MD Work Phone: [facility] Comment on above: History of rectal cancer (Primary Dx) Lumbar back pain wit h radiculopathy affecting lower extremity (Primary Dx); Chronic left hip pain; Spinal stenosis of lumbar region with neurogenic claudication; Lumbar radiculopathy; Chronic bilateral low back pain with left-sided sciatica; Spinal stenosis of lumbar region, unspecified whether neurogenic claudication present Start: 08-30-2022 ambulatory Belgica Vega DO Work Phone: Associate Research Scientist Start: 08-30-2022 End: 08-30-2022 Subsequent hospital visit by physician Mri [facility] (I-Stat/Lg Bore/1.5t) [facility] Comment on above: Pain in hip [M25.559] Start: 08-30-2022 End: 08-30-2022 Subsequent hospital visit by physician Lamonte Curtis MD Work Phone: [facility] Comment on above: Pain of left hip [M25.552] Pain in hip [M25.559 ] Start: 08-15-2022 Telephone encounter Renetta Meza MD Work Phone: [facility] Comment on above: Appointment (sx) Start: 08-12-2022 End: 08-12-2022 Patient encounter procedure Belgcia Vega DO Work Phone: [facility] Comment on above: Encounter for annual [...] (HCC); Onychomycosis Start: 08-09-2022 Telephone encounter Renetta Meza MD Work Phone: [facility] Comment on above: Appointment (A-scan reminder) Start: 07-28-2022 Telephone encounter Renetta Meza MD Work Phone: [facility] Comment on above: Returning Patient's Call (r/s ascan) Start: 07-27-2022 Telephone encounter Renetta Meza MD Work Phone: [facility] Comment on above: Appointment (ascan) Start: 07-14-2022 End: 07-14-2022 Patient encounter procedure Renetta Meza MD Work Phone: [facility] Comment on above: Nuclear senile cataract of both eyes (Pr imary Dx) Start: 07-01-2022 End: 07-01-2022 Patient encounter procedure Binh Lake DO Work Phone: [facility] Comment on above: Pain in hip (Primary Dx); Lumbar back pain with radiculopathy affecting lower extremity; Chronic left hip pain Start: 06-29-2022 End: 06-29-2022 Patient encounter procedure Belgica Vega DO Work Phone: [facility] [employer] Comment on above: Hypertension, essential (Primary [...] management service Belgica Vega DO Work Phone: [facility] [employer] [facility] Comment on above: Opened In Error Start: 06-22-2022 Chart abstracting [facility] Main Work Phone: [facility] Comment on above: Psg Check In (Adult) Start: 06-01-2022 End: 06-01-2022 ambulatory Rory Mendoza MD Work Phone: [facility] Comment on above: History of rectal cancer (Primary Dx); Pulmonary nodules; Hip pain; Spinal stenosis of lumbar region with neurogenic claudication Start: 06-01-2022 End: 06-01-2022 Patient encounter procedure Rory Mendoza MD Work Phone: [facility] Start: 05-19-2022 Telephone encounter Belgica Vega DO Work Phone: [facility] Comment on above: Consult Start: 05-18-2022 End: 05-18-2022 Patient encounter procedure Belgica Vega DO Work Phone: [facility] Comment on above: Hypertension, [...] type Start: 05-11-2022 ambulatory Jen Bergman RN Associate Research Scientist Comment on above: Supervisor Glycerin Chronic Care (P CC f/u) Start: 05-05-2022 Telephone encounter Renetta Meza MD Work Phone: [facility] Comment on above: eyeglass perscription Start: 05-04-2022 End: 05-04-2022 Patient encounter procedure Noé Kennedy MD Work Phone: Urology Comment on above: Nocturia; Screening PSA (prostate specific antigen); Hematuria, microscopic; Benign prostatic hyperplasia with nocturia Start: 04-26-2022 Patient Outreach Jen Bergman RN Associate Research Scientist Comment on above: Supervisor Glycerin Chronic Care (P CC f/u); Transition Of Care (TCM f/u) Start: 04-21-2022 Patient Outreach Jen Bergman RN Associate Research Scientist Comment on above: Supervisor Glycerin Chronic Care (P CC f/u); Transition Of Care (TCM f/u) Start: 04-13-2022 End: 04-13-2022 Patient encounter procedure Belgica Vega DO Work Phone: [facility] Comment on above: Hospital discharge follow-up (Primary [...] Start: 04-05-2022 Patient Outreach Jen Bergman RN Associate Research Scientist Comment on above: Transition Of Care (AG D/C 04/01/22) Start: 03-30-2022 Telephone encounter Belgica Vega DO Work Phone: [facility] [facility] Comment on above: Consult Start: 03-23-2022 Telephone encounter Belgica Vega DO Work Phone: [facility] Comment on above: Results Start: 03-17-2022 Patient Outreach Jen Bergman RN Associate Research Scientist Comment on above: Transition Of Care (TCM f/u); Primary Ca re Coordinator Chronic Care (PCC f/u) Start: 03-11-2022 Patient Outreach Jen Bergman RN Associate Research Scientist Comment on above: Supervisor Glycerin Chronic Care (P CC f/u); Transition Of Care (TCM f/u) Start: 03-10-2022 Telephone encounter Belgica Roma Vega DO Work Phone: [facility] Comment on above: Patient Update Start: 03-01-2022 End: 03-01-2022 Patient encounter procedure Belgica Brandon eJ DO Work Phone: [facility] Comment on above: Hypertension, [...] Telephone encounter Belgica Vega DO Work Phone: [facility] Comment on above: Consult Start: 02-23-2022 Telephone encounter Artem Ahmadi MD Work Phone: [facility] GENER[facility] SUR[facility] DEPARTMENT Comment on above: Appointment Start: 02-21-2022 ambulatory Jen Bergman RN VNS Start: 02-21-2022 Chart abstracting Janie Pickett APRN.BARREL PAINTER Work Phone: [facility] General Endocrinology Comment on above: Transition Of Care (SNF status - SNF D/C 02/15/22); Supervisor Glycerin Chronic Care (PCC f/u) Start: 02-21-2022 Telephone encounter Janie Pickett APRN.BARREL PAINTER Work Phone: [facility] General Endocrinology Comment on above: No Show Start: 01-28-2022 Patient Outreach Jen Bergman RN Associate Research Scientist Comment on above: Transition Of Care (CC Rastafari D/C to S NF 01/27/22) Start: 01-20-2022 End: 01-27-2022 Evaluation and management of inpatient ANTOINE OLIVAS Facility:[facility] Start: 01-19-2022 Admission to [facility] Keyla Page [facility] Start: 01-19-[facility] Comment on above: Behavioral Problem Start: 01-18-2022 ambulatory Jen Bergman RN AG VNS Start: 01-18-2022 Follow-up encounter Jen Bergman RN AG Associate Research Scientist Comment on above: Supervisor Glycerin Hospital Follow Up (Hospital admit - SBAR) Start: 01-17-2022 End: 01-20-2022 Evaluation and management of inpatient BELGICA Roma VEGA Facility:[facility] Start: 01-17-2022 End: 01-17-2022 Patient encounter procedure [...] (HCC) Start: 01-17-2022 Admission to establishment Lyndsay Pee [facility] Start: 01-17-2022 End: 01-17-2022 ambulatory Lyndsay Glasgow [facility] Behavioral Health Intake Comment on above: Psychiatric Problem Start: 01-14-2022 Telephone encounter Renetta Meza MD Work Phone: [facility] Comment on above: Appointment Appointment (A-scan reminder); Surgery Cancelled (Per Patient) Start: 01-07-2022 ambulatory Jen Bergman RN AG Associate Research Scientist Comment on above: Supervisor Glycerin Chronic Care (P CC f/u) Start: 01-03-2022 End: 01-03-2022 Patient encounter procedure Belgica Vega DO Work Phone: [facility] Comment on above: Hypertension, essential [...] anger Start: 12-28-2021 ambulatory Jen Bergman RN Associate Research Scientist Comment on above: Supervisor Glycerin Chronic Care (P CC f/u) Start: 12-20-2021 Chart abstracting Billy Cody MD Work Phone: [facility] Start: 12-03-2021 ambulatory Jen Bergman RN Associate Research Scientist Comment on above: Supervisor Glycerin Chronic Care (P CC f/u) Start: 11-30-2021 Telephone encounter Renetta Meza MD Work Phone: [facility] Comment on above: Schedule Surgery (Phaco Right Eye) Start: 11-22-2021 Telephone encounter Renetta Meza MD Work Phone: [facility] Comment on above: Letter Start: 11-09-2021 Telephone encounter Renetta Meza MD Work Phone: [facility] Comment on above: Schedule Surgery (Phaco Right Eye) Start: 11-05-2021 End: 11-05-2021 Patient encounter procedure Belgica Vega DO Work Phone: [facility] Comment on above: Hypertension, essential [...] eyes Start: 11-01-2021 ambulatory Jen Bergman RN Associate Research Scientist Comment on above: Supervisor Glycerin Chronic Care (P CC f/u) Start: 10-27-2021 End: 10-27-2021 Patient encounter procedure Noé Kennedy MD Work Phone: Urology Comment on above: Benign prostatic hyperplasia with noctur ia (Primary Dx); Hematuria, microscopic; Screening PSA (prostate specific antigen); Nocturia Start: 10-26-2021 Telephone encounter Belgica Vega DO Work Phone: [facility] Comment on above: Follow Up Phone Call (called pt mailbox full mailed letter) Start: 10-14-2021 Telephone encounter Artem Ahmadi MD Work Phone: [facility] GENER[facility] SUR[facility]ERY DEPARTMENT Comment on above: Schedule Surgery Start: 10-05-2021 End: 10-05-2021 Patient encounter procedure Belgica Vega DO Work Phone: [facility] Comment on above: Abscess of neck [...] encounter Belgica Vega DO Work Phone: [facility] Comment on above: Internal Referrals/resources (Nephrology ) Start: 09-20-2021 Telephone encounter Belgica Vega DO Work Phone: [facility] Comment on above: Internal Referrals/resources (Ophthalmol ogy) Start: 09-20-2021 End: 09-20-2021 Patient encounter procedure Belgica Vega DO Work Phone: [facility] Comment on above: Hospital discharge [...] retinopathy Start: 09-17-2021 ambulatory Jen Bergman RN Associate Research Scientist Comment on above: Supervisor Glycerin Chronic Care (P CC f/u) Start: 09-08-2021 Patient Outreach Jen Bergman RN Associate Research Scientist Comment on above: Transition Of Care (ED D/C 09/07/21); Prim karin Soil Conservationist - Patient Initiated (Received call from pt) Start: 09-06-2021 ambulatory Jen Bergman RN Associate Research Scientist Comment on above: Supervisor Glycerin Chronic Care (P CC f/u) Start: 08-27-2021 Chart abstracting Janie Pickett APRN.CNP Work Phone[facility] Start: 08-13-2021 Telephone encounter Artem Ahmadi MD Work Phone: [facility] SUR[facility]ERY DEPARTMENT Comment on above: Results Start: 08-11-2021 End: 08-11-2021 Patient encounter procedure Belgica Brandon Je DO Work Phone: [facility] [...] Subsequent hospital visit by physician Mri [facility] (I-Stat/1.5t) [facility] Comment on above: Neoplasm: colorectal, rx monitor or foll ow up Start: 08-05-2021 ambulatory Jen Bergman RN Associate Research Scientist Comment on above: Supervisor Glycerin Chronic Care (P CC f/u) Start: 07-23-2021 Refill Belgica Vega DO Work Phone: Associate Research Scientist Comment on above: Supervisor Glycerin Chronic Care (R efill) Start: 07-22-2021 ambulatory Jen Bergman RN Associate Research Scientist Comment on above: Supervisor Glycerin Chronic Care (P CC f/u) Start: 07-06-2021 Telephone encounter Belgica Vega DO Work Phone: [facility] Comment on above: Results; Appointment; Patient Update Start: 07-01-2021 Chart abstracting Janie Pickett APRN.CNP Work Phone: [facility] General Endocrinology Start: 09-10-2020 End: 09-10-2020 Subsequent hospital visit by physician Mri [facility](I-Stat/Lg Bore/1.5t) Work Phone: Radiology Comment on above: Malignant neoplasm of rectum (HCC) [C20] Start: 05-30-2020 End: 05-30-2020 Patient encounter procedure Aron Reynolds Work Phone: [facility] Start: 05-30-2020 Results Only Aron Reynolds Work Phone: [facility] Start: 05-29-2020 End: 05-29-2020 Patient encounter procedure [facility] Start: 05-29-2020 Results Only [facility] Department Start: 05-29-2020 End: 05-29-2020 Telephone encounter Belgica Herrera Work Phone: [facility] Comment on above: Patient Update (Neurology referral, no n umber on file for the patient) Start: 05-28-2020 End: 05-28-2020 Patient encounter procedure [facility]gica Herrera [facility] Comment on above: Hypertension, essential (Primary Dx); Chronic nausea; Myalgia; Marijuana use; Drooling; Chronic vertigo; Screening for diabetic retinopathy; Glucosuria; Uncontrolled type 2 diabetes mellitus with hyperglycemia (HCC); Primary osteoarthritis of left shoulder; Mixed hyperlipidemia Start: 05-28-2020 End: 05-28-2020 Patient encounter procedure Juancho Smithw-S) Marichuy Work Phone: [facility] General Behavioral Medicine (Julio César) Comment on above: Severe episode of recurrent major depres sive disorder, without psychotic features (HCC) (Primary Dx); Anxiety disorder, unspecified type Start: 05-14-2020 End: 05-14-2020 Telephone encounter Belgica Herrera [facility] Comment on above: Results Start: 05-14-2020 End: 05-14-2020 Subsequent hospital visit by physician [facility] Comment on above: Left shoulder pain, unspecified chronici ty [M25.512] Start: 05-06-2020 End: 05-06-2020 Telephone encounter Belgica Herrera Work Phone: [facility] Comment on above: Patient Update Start: 05-05-2020 End: 05-05-2020 Patient encounter procedure Carla Tripathi Work Phone: [facility] Comment on above: Chronic bilateral low back pain, unspeci fied whether sciatica present (Primary Dx); Weakness; Decreased mobility and endurance Start: 04-27-2020 End: 04-27-2020 Patient encounter procedure Belgica Herrera Work Phone: [facility] Comment on above: Uncontrolled hypertension (Primary Dx); Diabetes mellitus due to underlying condition, uncontrolled, with hyperglycemia (HCC); Mixed hyperlipidemia; Marijuana use; Chronic bilateral low back pain with sciatica, sciatica laterality unspecified; Lumbar radiculopathy; Dysuria; Fall (on) (from) other stairs and steps, initial encounter; Left shoulder pain, unspecified chronicity Start: 03-23-2020 End: 03-23-2020 Patient encounter procedure Belgica Hrerera Work Phone: [facility] Comment on above: Uncontrolled hypertension (Primary Dx); Diabetes mellitus due to underlying condition, uncontrolled, with hyperglycemia (HCC); Vitamin D deficiency; Obesity, Class II, BMI 35-39.9; Mixed hyperlipidemia; Encounter for immunization; Diabetic peripheral neuropathy associated with type 2 diabetes mellitus (HCC) Start: 03-03-2020 End: 03-03-2020 Telephone encounter Belgica Herrera Work Phone: [facility] Comment on above: Medication Problem Start: 02-28-2020 End: 02-28-2020 Telephone encounter Belgica Herrera Work Phone: [facility] Comment on above: Consult Start: 02-21-2020 End: 02-21-2020 Patient encounter procedure [facility] Start: 02-21-2020 Results Only [facility] Department Start: 02-21-2020 End: 02-21-2020 Telephone encounter Bunny Giraldo [facility] Comment on above: Consult (CONSULTS TO ENT AND OPTHALMOLOG Y) Start: 02-20-2020 End: 02-20-2020 Patient encounter procedure Belgica Herrera Work Phone: [facility] Comment on above: Uncontrolled hypertension (Primary Dx); Diabetes mellitus due to underlying condition, uncontrolled, with hyperglycemia (HCC); Obesity, Class II, BMI 35-39.9; Chronic bilateral low back pain with sciatica, sciatica laterality unspecified; Marijuana use; Microalbuminuria; Vitamin D deficiency; Mixed hyperlipidemia; Elevated alkaline phosphatase level; Tinnitus aurium, bilateral; Dizziness; Dizziness and giddiness Start: 02-18-2020 End: 02-18-2020 Telephone encounter Belgica Brandon Javier Work Phone: [facility] Comment on above: Results Start: 02-17-2020 End: 02-17-2020 Telephone encounter Bunny Josseline Kristal [facility] Comment on above: Appointment (CONSULT TO ORTHO PLACED) Results Appointment (CONSULT TO PHYSICAL THERAPY PLACED) Start: 02-17-2020 End: 02-17-2020 Subsequent hospital visit by physician [facility] Comment on above: Chronic bilateral low back pain with sci atica, sciatica laterality unspecified [M54.40, G89.29] Start: 02-14-2020 End: 02-14-2020 Patient encounter procedure Belgica Brandon Javier Work Phone: [facility] Comment on above: Routine physical [...] ia hepatitis b surface antigen Ailyn Christy VISUAL EDUCATION DIRECTOR - BARREL PAINTER Work Phone: Start: 11-27-2024 End: 11-27-2024 Drug screen quantitative elzbieta Adames MD Work Phone: Start: 11-27-2024 Glucose quantitative blood xcpt reagent strip Flori Hills MD Work Phone: Start: 11-27-2024 Glucose quantitative blood xcpt reagent strip Flori Hills MD Work Phone: Start: 11-27-2024 Bacteria identified in Blood by Culture Flori Hills MD Work Phone: Start: 11-27-2024 Comprehensive metabolic panel Flori Hills MD Work Phone: Start: 11-27-2024 Iaad ia hepatitis b surface antigen Ailyn Christy VISUAL EDUCATION DIRECTOR - BARREL PAINTER Work Phone: Start: 11-26-2024 Glucose quantitative blood [...] Work Phone: Start: 11-26-2024 Drug screen quantitative vancomycin Omid Adames MD Work Phone: Start: 11-25-2024 [...] MD Work Phone: Start: 12-29-2023 End: 12-29-2023 [facility] medical xm&eval comprhnsv estab pt 1/> Type 2 diabetes mellitus with both eyes affected by moderate nonproliferative retinopathy without macular edema, with long-term current use of insulin (HCC) Renetta Meza MD Work Phone: Comment on above: Type 2 diabetes mellitus with both eyes affected by moderate nonproliferative retinopathy without macular edema, with long-term current use of insulin (HCC) (Primary Dx); Pseudophakia of both eyes Start: 10-20-2023 History of excision of lamina of lumbar vertebra for decompression of spinal cord History of lumbar laminectomy for spinal cord decompression Bunyn Scott MD Work Phone: Start: 07-12-2023 Urnls [...] 11-05-2021 Computerized ophthalmic imaging optic nerve Renetta Meza MD Work Phone: Start: 10-05-2021 Hemoglobin A1c/Hemoglobin.total [...] Work Phone: Start: 07-24-2020 Colonoscopy Janie Pickett APRN.BARREL PAINTER Work Phone: Start: 05-30-2020 PT ED PATIENT INFORMATION rAon Marques i Work Phone: Start: 05-29-2020 CARDIAC [facility] Provider [...] DTaP/Tdap/Td Vaccines (2 - Td or Tdap) [facility] Start: 10-19-2030 Urine microalbumin profile [facility] Start: 11-02-2027 PROSTATE CANCER SCREENING DISCUSSION PROSTATE CANCER SCREENING DISCUSSION [facility] Start: 11-02-2027 Prostate specific antigen measurement Prostate Cancer Screening Discussion [facility] Start: 05-13-2027 Screening for malignant neoplasm of colon [facility] Start: 01-19-2027 PROSTATE CANCER SCREENING DISCUSSION PROSTATE CANCER SCREENING DISCUSSION [facility] Start: 07-05-2026 PROSTATE CANCER SCREENING DISCUSSION PROSTATE CANCER SCREENING DISCUSSION [facility] Start: 04-09-2026 PROSTATE CANCER SCREENING DISCUSSION PROSTATE CANCER SCREENING DISCUSSION [facility] Start: 11-29-2025 Diabetes: Estimated Glomerular Filtration Rate for Kidney Health Diabetes: Estimated Glomerular Filtration Rate for Kidney Health [facility] Start: 11-26-2025 Hemoglobin A1c measurement Diabetes: Hemoglobin A1C [facility] Start: 07-24-2025 Complete blood count Hemoglobin/Hematocrit [facility] Start: 07-24-2025 Creatinine measurement Serum Creatinine [facility] Start: 07-16-2025 Complete blood count Hemoglobin/Hematocrit [facility] Start: 07-16-2025 Creatinine measurement Serum Creatinine [facility] Start: 07-12-2025 Complete blood count Hemoglobin/Hematocrit [facility] Start: 07-12-2025 Creatinine measurement Serum Creatinine [facility] Start: 07-11-2025 Diabetes: Urine Albumin-Creatinine Ratio for Kidney [facility] Diabetes: Urine Albumin-Creatinine Ratio for Kidney Health [facility] Start: 07-10-2025 Complete blood count Hemoglobin/Hematocrit [facility] Start: 07-10-2025 Creatinine measurement Serum Creatinine [facility] Start: 05-13-2025 Complete blood count Hemoglobin/Hematocrit [facility] Start: 05-13-2025 Screening for malignant neoplasm of colon [facility] Start: 04-26-2025 Complete blood count Hemoglobin/Hematocrit [facility] Start: 04-26-2025 Creatinine measurement Serum Creatinine [facility] Start: 04-26-2025 Diabetes: Estimated Glomerular Filtration Rate for Kidney Health Diabetes: Estimated Glomerular Filtration Rate for Kidney Health [facility] Start: 02-16-2025 LIPID SCREEN LIPID SCREEN [facility] Start: 02-16-2025 PROSTATE CANCER SCREENING DISCUSSION PROSTATE CANCER SCREENING DISCUSSION [facility] Start: 01-23-2025 Complete blood count Hemoglobin/Hematocrit [facility] Start: 01-23-2025 Creatinine measurement Serum Creatinine [facility] Start: 01-23-2025 Diabetes: Urine Albumin-Creatinine Ratio for Kidney Health Diabetes: Urine Albumin-Creatinine Ratio for Kidney Health [facility] Start: 12-28-2024 Glaucoma screening [facility] Start: 2024 Influenza vaccination [facility] Start: 11-05-2024 BP Controlled (<130/80) BP Controlled (<130/80) [facility] Start: 10-17-2024 Complete blood count Hemoglobin/Hematocrit [facility] Start: 10-17-2024 Creatinine measurement Serum Creatinine [facility] Start: 10-17-2024 Diabetes: Estimated Glomerular Filtration Rate for Kidney Health Diabetes: Estimated Glomerular Filtration Rate for Kidney Health [facility] Start: 10-09-2024 End: 10-09-2024 Patient encounter procedure 10/09/2024 3:45 PM EDT Office Visit [facility] [place] [address] [facility] [address] [place] [address] Jose Dudley MD [address] [facility] [address] [place], [place] [id number] follow-up 3m [facility] [place] Comment on above: follow-up Start: 10-09-2024 End: 07-10-2025 25-hydroxyvitamin D3 [Mass/volume] in Serum or Plasma VITAMIN D 25 HYDROXY Lab Routine Vitamin D deficiency Expected: 10/09/2024, Expires: 07/10/2025 [facility] Comment on above: Expected: 10/09/2024, Expires: Start: 10-09-2024 End: 07-10-2025 CBC W Auto Differential panel - Blood COMPLETE BLOOD COUNT AND DIFFERENTIAL Lab Routine Anemia of renal disease Expected: 10/09/2024, Expires: 07/10/2025 [facility] Work Phone: Comment on above: Expected: 10/09/2024, Expires: Start: 10-09-2024 End: 07-10-2025 Magnesium [Mass/volume] in Serum or Plasma MAGNESIUM Lab Routine Stage 5 chronic kidney disease not on chronic dialysis (HCC) Expected: 10/09/2024, Expires: 07/10/2025 [facility] Comment on above: Expected: 10/09/2024, Expires: Start: 10-09-2024 End: 01-08-2025 Microalbumin/Creatinine [Mass Ratio] in Urine ALBUMIN/CREATININE RATIO, URINE Lab Routine Other proteinuria Expected: 10/09/2024, Expires: 01/08/2025 [facility] Comment on above: Expected: 10/09/2024, Expires: Start: 10-09-2024 End: 07-10-2025 Parathyrin.intact [Mass/volume] in Serum or Plasma PTH INTACT Lab Routine Stage 5 chronic kidney disease not on chronic dialysis (HCC) Expected: 10/09/2024, Expires: 07/10/2025 [facility] Comment on above: Expected: 10/09/2024, Expires: Start: 10-09-2024 End: 07-10-2025 Renal function 2000 panel - Serum or Plasma RENAL FUNCTION PANEL Lab Routine Stage 5 chronic kidney disease not on chronic dialysis (HCC) Expected: 10/09/2024, Expires: 07/10/2025 [facility] Comment on above: Expected: 10/09/2024, Expires: Start: 10-09-2024 End: 07-10-2025 Urate [Mass/volume] in Serum or Plasma URIC ACID Lab Routine Stage 5 chronic kidney disease not on chronic dialysis (HCC) Expected: 10/09/2024, Expires: 07/10/2025 [facility] Comment on above: Expected: 10/09/2024, Expires: Start: 10-09-2024 End: 01-08-2025 Urinalysis complete panel - Urine URINALYSIS, WITH MICROSCOPIC Lab Routine Stage 5 chronic kidney disease not on chronic dialysis (HCC) Expected: 10/09/2024, Expires: 01/08/2025 [facility] Comment on above: Expected: 10/09/2024, Expires: Start: 10-08-2024 Complete blood count Hemoglobin/Hematocrit [facility] Start: 10-08-2024 Creatinine measurement Serum Creatinine [facility] Start: 10-05-2024 Hemoglobin A1c measurement Diabetes: Hemoglobin A1C [facility] Start: 09-30-2024 Diabetes: Estimated Glomerular Filtration Rate for Kidney Health Diabetes: Estimated Glomerular Filtration Rate for Kidney Health [facility] Start: 09-27-2024 End: 09-27-2024 Patient encounter procedure 09/27/2024 2:45 PM EDT Office Visit [facility] [address] [place] [address] Renetta Meza MD [address] [place] [address] RTC 9 months diabetic check [facility] Comment on above: RTC 9 months diabetic check Start: 07-24-2024 End: 10-23-2024 25-hydroxyvitamin D3 [Mass/volume] in Serum or Plasma VITAMIN D 25 HYDROXY Lab Routine Stage 3b chronic kidney disease (HCC) Vitamin D deficiency Expected: 07/24/2024, Expires: 10/23/2024 [facility] Comment on above: Expected: 07/24/2024, Expires: Start: 07-24-2024 End: 10-23-2024 CBC W Auto Differential panel - Blood COMPLETE BLOOD COUNT AND DIFFERENTIAL Lab Routine Anemia of renal disease Stage 3b chronic kidney disease (HCC) Expected: 07/24/2024, Expires: 10/23/2024 [facility] Comment on above: Expected: 07/24/2024, Expires: Start: 07-24-2024 End: 10-23-2024 Magnesium [Mass/volume] in Serum or Plasma MAGNESIUM Lab Routine Stage 3b chronic kidney disease (HCC) Expected: 07/24/2024, Expires: 10/23/2024 [facility] Comment on above: Expected: 07/24/2024, Expires: Start: 07-24-2024 End: 10-23-2024 Microalbumin/Creatinine [Mass Ratio] in Urine ALBUMIN/CREATININE RATIO, URINE Lab Routine Stage 3b chronic kidney disease (HCC) Other proteinuria Expected: 07/24/2024, Expires: 10/23/2024 [facility] Comment on above: Expected: 07/24/2024, Expires: Start: 07-24-2024 End: 10-23-2024 Parathyrin.intact [Mass/volume] in Serum or Plasma PTH INTACT Lab Routine Stage 3b chronic kidney disease (HCC) Expected: 07/24/2024, Expires: 10/23/2024 [facility] Comment on above: Expected: 07/24/2024, Expires: Start: 07-24-2024 End: 10-23-2024 Renal function 2000 panel - Serum or Plasma RENAL FUNCTION PANEL Lab Routine Stage 3b chronic kidney disease (HCC) Expected: 07/24/2024, Expires: 10/23/2024 [facility] Comment on above: Expected: 07/24/2024, Expires: Start: 07-24-2024 End: 10-23-2024 Urate [Mass/volume] in Serum or Plasma URIC ACID Lab Routine Stage 3b chronic kidney disease (HCC) Expected: 07/24/2024, Expires: 10/23/2024 [facility] Comment on above: Expected: 07/24/2024, Expires: Start: 07-24-2024 End: 10-23-2024 Urinalysis complete panel - Urine URINALYSIS, WITH MICROSCOPIC Lab Routine Stage 3b chronic kidney disease (HCC) Expected: 07/24/2024, Expires: 10/23/2024 [facility] Comment on above: Expected: 07/24/2024, Expires: Start: 07-12-2024 End: 07-12-2024 Renal biopsy prq trocar/needle BIOPSY KIDNEY PERCUTANEOUS Kidney disease 07/12/2024 1:53 PM EDT [facility] IR Start: 07-11-2024 End: 10-10-2024 PSA/PROSTATE SPECIFIC ANTIGEN SCREENING PSA/PROSTATE SPECIFIC ANTIGEN SCREENING Lab Routine Nocturia Benign prostatic hyperplasia with nocturia Screening PSA (prostate specific antigen) Expected: 07/11/2024 (Approximate), Expires: 10/10/2024 [facility] Work Phone: Comment on above: Expected: 07/11/2024 (Approximate), Expi res: 10/10/2024 Start: 07-10-2024 End: 07-10-2024 Patient encounter procedure [facility] Comment on above: 6 mo f/u Start: 07-04-2024 End: 10-03-2024 25-hydroxyvitamin D3 [Mass/volume] in Serum or Plasma VITAMIN D 25 HYDROXY Lab Routine Stage 3b chronic kidney disease (HCC) Vitamin D deficiency Expected: 07/04/2024, Expires: 10/03/2024 [facility] Comment on above: Expected: 07/04/2024, Expires: Start: 07-04-2024 End: 10-03-2024 CBC W Auto Differential panel - Blood COMPLETE BLOOD COUNT AND DIFFERENTIAL Lab Routine Anemia of renal disease Stage 3b chronic kidney disease (HCC) Expected: 07/04/2024, Expires: 10/03/2024 [facility] Comment on above: Expected: 07/04/2024, Expires: Start: 07-04-2024 End: 10-03-2024 Magnesium [Mass/volume] in Serum or Plasma MAGNESIUM Lab Routine Stage 3b chronic kidney disease (HCC) Expected: 07/04/2024, Expires: 10/03/2024 [facility] Comment on above: Expected: 07/04/2024, Expires: Start: 07-04-2024 End: 10-03-2024 Microalbumin/Creatinine [Mass Ratio] in Urine ALBUMIN/CREATININE RATIO, URINE Lab Routine Stage 3b chronic kidney disease (HCC) Other proteinuria Expected: 07/04/2024, Expires: 10/03/2024 [facility] Work Phone: Comment on above: Expected: 07/04/2024, Expires: Start: 07-04-2024 End: 10-03-2024 Parathyrin.intact [Mass/volume] in Serum or Plasma PTH INTACT Lab Routine Stage 3b chronic kidney disease (HCC) Chronic kidney disease-mineral and bone disorder Expected: 07/04/2024, Expires: 10/03/2024 [facility] Comment on above: Expected: 07/04/2024, Expires: Start: 07-04-2024 End: 10-03-2024 Renal function 2000 panel - Serum or Plasma RENAL FUNCTION PANEL Lab Routine Stage 3b chronic kidney disease (HCC) Expected: 07/04/2024, Expires: 10/03/2024 [facility] Comment on above: Expected: 07/04/2024, Expires: Start: 07-04-2024 End: 10-03-2024 Urate [Mass/volume] in Serum or Plasma URIC ACID Lab Routine Stage 3b chronic kidney disease (HCC) Expected: 07/04/2024, Expires: 10/03/2024 [facility] Comment on above: Expected: 07/04/2024, Expires: Start: 07-04-2024 End: 10-03-2024 Urinalysis complete panel - Urine URINALYSIS, WITH MICROSCOPIC Lab Routine Stage 3b chronic kidney disease (HCC) Other proteinuria Expected: 07/04/2024, Expires: 10/03/2024 [facility] Comment on above: Expected: 07/04/2024, Expires: Start: 06-12-2024 Creatinine measurement Serum Creatinine [facility] Start: 06-03-2024 Complete blood count Hemoglobin/Hematocrit [facility] Start: 05-24-2024 Diabetes: Urine Albumin-Creatinine Ratio for Kidney Health Diabetes: Urine Albumin-Creatinine Ratio for Kidney Health [facility] Start: 05-24-2024 Hepatitis B screening Urine Albumin:Creatinine Ratio [facility] Start: 05-23-2024 Complete blood count Hemoglobin/Hematocrit [facility] Start: 05-23-2024 Creatinine measurement Serum Creatinine [facility] Start: 05-13-2024 End: 05-13-2024 Patient encounter procedure [place] [facility] Start: 04-07-2024 Hemoglobin A1c measurement HbA1C [facility] Start: 04-03-2024 Medicare Advantage Annual Wellness Visit Medicare Advantage Annual Wellness Visit [facility] Start: 01-24-2024 End: 01-24-2024 Patient encounter procedure 01/24/2024 1:30 PM EDT Office Visit [facility] [place] [address] [facility] [address] [place] [address] Jose Dudley MD [address] [place], [place] [id number] 4 mo f/u [facility] [place] Comment on above: 4 mo f/u Start: 01-22-2024 End: 01-22-2024 Patient encounter procedure 01/22/2024 1:45 PM EDT Office Visit Urology [address] [place] [address] Noé Kennedy MD [address] [place] [address] 6 month folllow up psa prior Urology Comment on above: 6 month folllow up psa prior Start: 01-19-2024 End: 04-19-2024 25-hydroxyvitamin D3 [Mass/volume] in Serum or Plasma VITAMIN D 25 HYDROXY Lab Routine Anemia of renal disease Stage 3b chronic kidney disease (HCC) Vitamin D deficiency Other proteinuria Expected: 01/19/2024, Expires: 04/19/2024 [facility] Comment on above: Expected: 01/19/2024, Expires: Start: 01-19-2024 End: 04-19-2024 CBC W Auto Differential panel - Blood COMPLETE BLOOD COUNT AND DIFFERENTIAL Lab Routine Anemia of renal disease Stage 3b chronic kidney disease (HCC) Vitamin D deficiency Other proteinuria Expected: 01/19/2024, Expires: 04/19/2024 [facility] Comment on above: Expected: 01/19/2024, Expires: Start: 01-19-2024 End: 04-19-2024 Magnesium [Mass/volume] in Serum or Plasma MAGNESIUM Lab Routine Anemia of renal disease Stage 3b chronic kidney disease (HCC) Vitamin D deficiency Other proteinuria Expected: 01/19/2024, Expires: 04/19/2024 [facility] Comment on above: Expected: 01/19/2024, Expires: Start: 01-19-2024 End: 04-19-2024 Microalbumin/Creatinine [Mass Ratio] in Urine ALBUMIN/CREATININE RATIO, URINE Lab Routine Anemia of renal disease Stage 3b chronic kidney disease (HCC) Vitamin D deficiency Other proteinuria Expected: 01/19/2024, Expires: 04/19/2024 [facility] Work Phone: Comment on above: Expected: 01/19/2024, Expires: Start: 01-19-2024 End: 04-19-2024 Parathyrin.intact [Mass/volume] in Serum or Plasma PTH INTACT Lab Routine Anemia of renal disease Stage 3b chronic kidney disease (HCC) Vitamin D deficiency Other proteinuria Expected: 01/19/2024, Expires: 04/19/2024 [facility] Comment on above: Expected: 01/19/2024, Expires: Start: 01-19-2024 End: 04-19-2024 Renal function 2000 panel - Serum or Plasma RENAL FUNCTION PANEL Lab Routine Anemia of renal disease Stage 3b chronic kidney disease (HCC) Vitamin D deficiency Other proteinuria Expected: 01/19/2024, Expires: 04/19/2024 [facility] Comment on above: Expected: 01/19/2024, Expires: Start: 01-19-2024 End: 04-19-2024 Urate [Mass/volume] in Serum or Plasma URIC ACID Lab Routine Anemia of renal disease Stage 3b chronic kidney disease (HCC) Vitamin D deficiency Other proteinuria Expected: 01/19/2024, Expires: 04/19/2024 [facility] Comment on above: Expected: 01/19/2024, Expires: Start: 01-19-2024 End: 04-19-2024 Urinalysis complete panel - Urine URINALYSIS, WITH MICROSCOPIC Lab Routine Anemia of renal disease Stage 3b chronic kidney disease (HCC) Vitamin D deficiency Other proteinuria Expected: 01/19/2024, Expires: 04/19/2024 [facility] Comment on above: Expected: 01/19/2024, Expires: Start: 01-08-2024 End: 04-08-2024 PSA/PROSTATE SPECIFIC ANTIGEN SCREENING PSA/PROSTATE SPECIFIC ANTIGEN SCREENING Lab Routine Nocturia Benign prostatic hyperplasia with nocturia Screening PSA (prostate specific antigen) Expected: 01/08/2024 (Approximate), Expires: 04/08/2024 [facility] Work Phone: Comment on above: Expected: 01/08/2024 (Approximate), Expi res: 04/08/2024 Start: 12-30-2023 Glaucoma screening Dilated Retinal Exam [facility] Start: 12-30-2023 Hepatitis C antibody, confirmatory test Dilated Retinal Exam [facility] Start: 12-29-2023 End: 12-29-2023 Patient encounter procedure 12/29/2023 2:45 PM EDT Office Visit [facility] [place] [address] Renetta Meza MD [address] [place] [address] RTC 9 months diabetic check [facility] Comment on above: RTC 9 months diabetic check Start: 12-24-2023 Annual PCP Team Chronic Disease Visit Annual PCP Team Chronic Disease Visit [facility] Start: 12-03-2023 Covid-19 Vaccine ( season) Covid-19 Vaccine () [facility] Start: 12-03-2023 Covid-19 Vaccine () Covid-19 Vaccine () [facility] Start: 12-03-2023 Influenza vaccination [facility] Start: 11-21-2023 End: 11-21-2023 Home visit 11/21/2023 2:30 PM EDT OT/PT/Speech Visit [facility] [address] [place] [address] Zafar Aguilar, PT, DPT Post l[facility]ctomy/D[facility] Comment on above: Post l[facility]ctomy/D/[facility] Start: 11-16-2023 End: 11-16-2023 Home visit [facility] Comment on above: [id number] [address] post laminectomy. DM Wound has a slight amount of drainage, pt on cephalexin. Wound assessment. ?disc dc vs agency dc? Check on therapy plan. Start: 11-10-2023 End: 11-10-2023 Home visit [facility] Comment on above: [id number] [address] post laminectomy. DM Wound has a slight amount of drainage, pt was on cephalexin. Wound assessment. Next to last SN vs, check on therapy plan. ?NOMNC? Start: 11-07-2023 End: 11-07-2023 Home visit [facility] Comment on above: [id number] [address] post laminectomy. DM Wound has a slight amount of drainage, pt on cephalexin. Wound assessment. Please see SOC notes for full info. Start: 11-05-2023 ANNUAL PCP TEAM CHRONIC DISEASE VISIT ANNUAL PCP TEAM CHRONIC DISEASE VISIT [facility] Start: 11-03-2023 End: 11-03-2023 Home visit [facility] Comment on above: [id number] [place] post laminectomy. DM Wound has a slight amount of drainage, pt was on cephalexin. Wound assessment. Please see SOC notes for full info. Start: 11-02-2023 Complete blood count Hemoglobin/Hematocrit [facility] Start: 11-02-2023 Creatinine measurement Serum Creatinine [facility] Start: 11-02-2023 HEMOGLOBIN/HEMATOCRIT HEMOGLOBIN/HEMATOCRIT [facility] Start: 11-02-2023 Hepatitis B surface antibody level LDL CHOLESTEROL [facility] Start: 11-02-2023 SERUM CREATININE SERUM CREATININE [facility] Start: 10-31-2023 End: 10-31-2023 Home visit [facility] Comment on above: [id number] [place] post laminectomy. DM Wound has a slight amount of drainage, pt was on cephalexin. Wound assessment. Please see SOC notes for full info. 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 [address] [place] [address] diabetes follow up Endocrinology Comment on above: diabetes follow up Start: 10-28-2023 End: 10-28-2023 Home visit 10/28/2023 12:00 PM EDT Home Care Visit [facility] [address] [place] [address] Zohaib Abel, PT [address] [place] [address] CONFIRMED FOR SAT 10/27 PTE 10/22-10/26 - KNUP, DELAY CALL MADE Confirmed 11:30 to 12 [facility] Comment on above: CONFIRMED FOR SAT 10/27 - [id number] PTE 10/02 2-10/26 - KNUP, DELAY CALL MADE Confirmed 11:30 to 12 Start: 10-27-2023 End: 10-27-2023 Home visit [facility] Comment on above: [id number] PTE - KNUPP [id number] OTE 6 - FERNANDA Start: 10-26-2023 End: 10-26-2023 Home visit [facility] Comment on above: [id number] [place] post laminectomy. Wound bartholomew s a slight amount of drainage, pt on cephalexin. Wound assessment and labs due. Please see SOC notes for full info. Start: 10-25-2023 End: 10-25-2023 Home visit [facility] Comment on above: [id number] OTE PASS TO T. 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 [id number] [facility] Start: 10-22-2023 Hepatitis C antibody, confirmatory test DILATED RETINAL EXAM [facility] Start: 10-22-2023 End: 10-22-2023 Patient encounter procedure [facility] Comment on above: [id number] CM: Richard HINDS [id number] CM: Richard HINDS [id number]- 10/19- DID NOT CONFIRM Radiculopathy, lumbar region Start: 10-20-2023 End: 10-20-2023 Patient encounter procedure Jorge Luis Ch[facility] Comment on above: RTC 9 months diabetic check Start: 09-29-2023 ANNUAL PCP TEAM CHRONIC DISEASE VISIT ANNUAL PCP TEAM CHRONIC DISEASE VISIT [facility] Start: 09-22-2023 End: 06-21-2024 25-hydroxyvitamin D3 [Mass/volume] in Serum or Plasma VITAMIN D 25 HYDROXY Lab Routine Vitamin D deficiency Expected: 09/22/2023, Expires: 06/21/2024 [facility] [place] [facility] Work Phone: Comment on above: Expected: 09/22/2023, Expires: 5 Start: 09-22-2023 End: 12-22-2023 ALBUMIN/CREAT RATIO RND UR ALBUMIN/CREAT RATIO RND UR Lab Routine Other proteinuria Expected: 09/22/2023, Expires: 12/22/2023 [facility] Work Phone: Comment on above: Expected: 09/22/2023, Expires: 4 Start: 09-22-2023 End: 06-21-2024 CBC W Auto Differential panel - Blood CBC + DIFF Lab Routine Anemia of renal disease Expected: 09/22/2023, Expires: 06/21/2024 [facility] Work Phone: Comment on above: Expected: 09/22/2023, Expires: 5 Start: 09-22-2023 End: 06-21-2024 Magnesium [Mass/volume] in Serum or Plasma MAGNESIUM BLD Lab Routine Stage 3b chronic kidney disease (HCC) Expected: 09/22/2023, Expires: 06/21/2024 [facility] Work Phone: Comment on above: Expected: 09/22/2023, Expires: 5 Start: 09-22-2023 End: 06-21-2024 Parathyrin.intact [Mass/volume] in Serum or Plasma PTH INTACT BLD Lab Routine Stage 3b chronic kidney disease (HCC) Expected: 09/22/2023, Expires: 06/21/2024 [facility] Work Phone: Comment on above: Expected: 09/22/2023, Expires: 5 Start: 09-22-2023 End: 06-21-2024 Renal function 2000 panel - Serum or Plasma RENAL FUNCTION PANEL Lab Routine Stage 3b chronic kidney disease (HCC) Expected: 09/22/2023, Expires: 06/21/2024 [facility] Work Phone: Comment on above: Expected: 09/22/2023, Expires: 5 Start: 09-22-2023 End: 06-21-2024 Urate [Mass/volume] in Serum or Plasma URIC ACID BLOOD Lab Routine Stage 3b chronic kidney disease (HCC) Expected: 09/22/2023, Expires: 06/21/2024 [facility] Work Phone: Comment on above: Expected: 09/22/2023, Expires: 5 Start: 09-22-2023 End: 12-22-2023 Urinalysis complete panel - Urine URINALYSIS, WITH MICROSCOPIC Lab Routine Stage 3b chronic kidney disease (HCC) Expected: 09/22/2023, Expires: 12/22/2023 [facility] Work Phone: Comment on above: Expected: 09/22/2023, Expires: 4 Start: 09-17-2023 ANNUAL PCP TEAM CHRONIC DISEASE VISIT ANNUAL PCP TEAM CHRONIC DISEASE VISIT [facility] Start: 09-17-2023 SERUM CREATININE SERUM CREATININE [facility] Start: 09-16-2023 HEMOGLOBIN/HEMATOCRIT HEMOGLOBIN/HEMATOCRIT [facility] Start: 08-21-2023 Hemoglobin A1c measurement HbA1C [facility] Start: 08-13-2023 3 comp foot exam completed DIABETIC FOOT EXAM [facility] Start: 08-13-2023 ANNUAL PCP TEAM CHRONIC DISEASE VISIT ANNUAL PCP TEAM CHRONIC DISEASE VISIT [facility] Start: 08-13-2023 COVID-19 VACCINE (#1) COVID-19 VACCINE (#1) [facility] Comment on above: Postponed from 05/31/1960 (Declined at t his time) Start: 08-13-2023 Diabetic foot examination Diabetic Foot Exam [facility] Start: 08-13-2023 PNEUMOCOCCAL (2 - PCV) PNEUMOCOCCAL (2 - PCV) [facility] Start: 08-13-2023 [facility] Start: 08-13-2023 Pneumococcal Vaccine: 50+ (2 of 2 - PCV) Pneumococcal Vaccine: 50+ (2 of 2 - PCV) [facility] Start: 08-13-2023 Pneumococcal Vaccine: 50+ Years (2 of 2 - PCV) Pneumococcal Vaccine: 50+ Years (2 of 2 - PCV) [facility] Start: 07-15-2023 Hepatitis C antibody, confirmatory test DILATED RETINAL EXAM [facility] Start: 07-12-2023 End: 10-11-2023 PSA/PROSTATE SPECIFIC ANTIGEN SCREENING PSA/PROSTATE SPECIFIC ANTIGEN SCREENING Lab Routine Nocturia Benign prostatic hyperplasia with nocturia Screening PSA (prostate specific antigen) Expected: 07/12/2023, Expires: 10/11/2023 [facility] Work Phone: Comment on above: Expected: 07/12/2023, Expires: 4 Start: 06-30-2023 ANNUAL PCP TEAM CHRONIC DISEASE VISIT ANNUAL PCP TEAM CHRONIC DISEASE VISIT [facility] Start: 06-28-2023 Hepatitis B surface antibody level LDL CHOLESTEROL [facility] Start: 06-28-2023 SERUM CREATININE SERUM CREATININE [facility] Start: 06-23-2023 Influenza vaccination LUNG CANCER SCREENING [facility] Start: 06-23-2023 Screening for malignant neoplasm of lung Lung Cancer Screening [facility] Start: 06-20-2023 End: 09-19-2023 25-hydroxyvitamin D3 [Mass/volume] in Serum or Plasma VITAMIN D 25 HYDROXY Lab Routine Stage 3a chronic kidney disease (HCC) Hypertension, essential Vitamin D deficiency Expected: 06/20/2023, Expires: 09/19/2023 [facility] Work Phone: Comment on above: Expected: 06/20/2023, Expires: 4 Start: 06-20-2023 End: 09-19-2023 ALBUMIN/CREAT RATIO RND UR ALBUMIN/CREAT RATIO RND UR Lab Routine Stage 3a chronic kidney disease (HCC) Hypertension, essential Other proteinuria Expected: 06/20/2023, Expires: 09/19/2023 [facility] Work Phone: Comment on above: Expected: 06/20/2023, Expires: 4 Start: 06-20-2023 End: 09-19-2023 CBC W Auto Differential panel - Blood CBC + DIFF Lab Routine Stage 3a chronic kidney disease (HCC) Hypertension, essential Expected: 06/20/2023, Expires: 09/19/2023 [facility] Work Phone: Comment on above: Expected: 06/20/2023, Expires: 4 Start: 06-20-2023 End: 09-19-2023 Magnesium [Mass/volume] in Serum or Plasma MAGNESIUM BLD Lab Routine Stage 3a chronic kidney disease (HCC) Hypertension, essential Expected: 06/20/2023, Expires: 09/19/2023 [facility] [facility] Work Phone: Comment on above: Expected: 06/20/2023, Expires: 4 Start: 06-20-2023 End: 09-19-2023 Parathyrin.intact [Mass/volume] in Serum or Plasma PTH INTACT BLD Lab Routine Stage 3a chronic kidney disease (HCC) Hypertension, essential Secondary hyperparathyroidism (HCC) Expected: 06/20/2023, Expires: 09/19/2023 [facility] Work Phone: Comment on above: Expected: 06/20/2023, Expires: 4 Start: 06-20-2023 End: 09-19-2023 Renal function 2000 panel - Serum or Plasma RENAL FUNCTION PANEL Lab Routine Stage 3a chronic kidney disease (HCC) Hypertension, essential Expected: 06/20/2023, Expires: 09/19/2023 [facility] Work Phone: Comment on above: Expected: 06/20/2023, Expires: 4 Start: 06-20-2023 End: 09-19-2023 Urate [Mass/volume] in Serum or Plasma URIC ACID BLOOD Lab Routine Stage 3a chronic kidney disease (HCC) Hypertension, essential Expected: 06/20/2023, Expires: 09/19/2023 [facility] Work Phone: Comment on above: Expected: 06/20/2023, Expires: 4 Start: 06-20-2023 End: 09-19-2023 Urinalysis complete panel - Urine URINALYSIS, WITH MICROSCOPIC Lab Routine Stage 3a chronic kidney disease (HCC) Hypertension, essential Other proteinuria Expected: 06/20/2023, Expires: 09/19/2023 [facility] Work Phone: Comment on above: Expected: 06/20/2023, Expires: Start: 06-02-2023 HEMOGLOBIN/HEMATOCRIT HEMOGLOBIN/HEMATOCRIT [facility] Start: 06-02-2023 SERUM CREATININE SERUM CREATININE [facility] Start: 05-18-2023 ANNUAL PCP TEAM CHRONIC DISEASE VISIT ANNUAL PCP TEAM CHRONIC DISEASE VISIT [facility] Start: 05-09-2023 End: 07-09-2023 ALBUMIN/CREAT RATIO RND UR ALBUMIN/CREAT RATIO RND UR Lab Routine Diabetes mellitus due to underlying condition, uncontrolled, with hyperglycemia (HCC) Expected: 05/09/2023, Expires: 07/09/2023 [facility] Work Phone: Comment on above: Expected: 05/09/2023, Expires: Start: 04-13-2023 ANNUAL PCP TEAM CHRONIC DISEASE VISIT ANNUAL PCP TEAM CHRONIC DISEASE VISIT [facility] Start: 04-03-2023 Medicare Advantage Annual Wellness Visit Medicare Advantage Annual Wellness Visit [facility] Start: 04-01-2023 SERUM CREATININE SERUM CREATININE [facility] Start: 03-21-2023 Hepatitis B surface antibody level LDL CHOLESTEROL [facility] Start: 03-01-2023 ANNUAL PCP TEAM CHRONIC DISEASE VISIT ANNUAL PCP TEAM CHRONIC DISEASE VISIT [facility] Start: 02-16-2023 DIABETES SCREEN DIABETES SCREEN [facility] Start: 02-12-2023 End: 04-14-2023 ALBUMIN/CREAT RATIO RND UR ALBUMIN/CREAT RATIO RND UR Lab Routine Microalbuminuria Expected: 02/12/2023, Expires: 04/14/2023 [facility] Work Phone: Comment on above: Expected: 02/12/2023, Expires: 4 Start: 02-01-2023 Hemoglobin A1c measurement HbA1C [facility] Start: 02-01-2023 Hemoglobin A1c/Hemoglobin.total in Blood HBA1C [facility] Start: 01-26-2023 SERUM CREATININE SERUM CREATININE [facility] Start: 01-23-2023 Hepatitis B screening URINE ALBUMIN:CREATININE RATIO [facility] Start: 01-20-2023 Hepatitis B surface antibody level LDL CHOLESTEROL [facility] Start: 01-20-2023 SERUM CREATININE SERUM CREATININE [facility] Start: 01-18-2023 SERUM CREATININE SERUM CREATININE [facility] Start: 01-17-2023 SERUM CREATININE SERUM CREATININE [facility] Start: 01-03-2023 ANNUAL PCP TEAM CHRONIC DISEASE VISIT ANNUAL PCP TEAM CHRONIC DISEASE VISIT [facility] Start: 01-03-2023 Hepatitis B surface antibody level LDL CHOLESTEROL [facility] Start: 01-03-2023 SERUM CREATININE SERUM CREATININE [facility] Start: 12-06-2022 End: 02-05-2023 Carcinoembryonic Ag [Mass/volume] in Serum or Plasma CEA BLD Lab Routine History of rectal cancer Expected: 12/06/2022 (Approximate), Expires: 02/05/2023 [facility] Work Phone: Comment on above: Expected: 12/06/2022 (Approximate), Expi res: 02/05/2023 Start: 12-06-2022 End: 02-05-2023 CBC W Auto Differential panel - Blood CBC + DIFF Lab Routine History of rectal cancer Expected: 12/06/2022 (Approximate), Expires: 02/05/2023 [facility] Work Phone: Comment on above: Expected: 12/06/2022 (Approximate), Expi res: 02/05/2023 Start: 12-06-2022 End: 02-05-2023 Comprehensive metabolic 2000 panel - Serum or Plasma COMP METABOLIC PANEL Lab Routine History of rectal cancer Expected: 12/06/2022 (Approximate), Expires: 02/05/2023 [facility] Work Phone: Comment on above: Expected: 12/06/2022 (Approximate), Expi res: 02/05/2023 Start: 2022 Covid-19 Vaccine () Covid-19 Vaccine () [facility] Start: 2022 Influenza vaccination [facility] Start: 11-05-2022 ANNUAL PCP TEAM CHRONIC DISEASE VISIT ANNUAL PCP TEAM CHRONIC DISEASE VISIT [facility] Start: 11-05-2022 Hepatitis C antibody, confirmatory test DILATED RETINAL EXAM [facility] Start: 10-05-2022 ANNUAL PCP TEAM CHRONIC DISEASE VISIT ANNUAL PCP TEAM CHRONIC DISEASE VISIT [facility] Start: 10-05-2022 BP CONTROLLED (<130/80) BP CONTROLLED (<130/80) [facility] in Start: 10-05-2022 COLORECTAL CANCER SCREENING COLORECTAL CANCER SCREENING [facility] Comment on above: Postponed from 12/01/2004 (Declined at t his time) Start: 09-29-2022 Hemoglobin A1c/Hemoglobin.total in Blood HBA1C [facility] Start: 09-20-2022 ANNUAL PCP TEAM CHRONIC DISEASE VISIT ANNUAL PCP TEAM CHRONIC DISEASE VISIT [facility] Start: 09-20-2022 Hepatitis B surface antibody level LDL CHOLESTEROL [facility] Start: 09-06-2022 HEMOGLOBIN/HEMATOCRIT HEMOGLOBIN/HEMATOCRIT [facility] Start: 08-15-2022 Hemoglobin A1c/Hemoglobin.total in Blood HBA1C [facility] Start: 08-12-2022 End: 05-09-2023 25-hydroxyvitamin D3 [Mass/volume] in Serum or Plasma VITAMIN D 25 HYDROXY Lab Routine Vitamin D deficiency Expected: 08/12/2022, Expires: 05/09/2023 [facility] Work Phone: Comment on above: Expected: 08/12/2022, Expires: 4 Start: 08-12-2022 End: 10-12-2022 CBC W Auto Differential panel - Blood CBC + DIFF Lab Routine Screening for deficiency anemia Expected: 08/12/2022, Expires: 10/12/2022 [facility] Work Phone: Comment on above: Expected: 08/12/2022, Expires: 3 Start: 08-12-2022 End: 10-12-2022 Comprehensive metabolic 2000 panel - Serum or Plasma COMP METABOLIC PANEL Lab Routine Hypertension, essential Expected: 08/12/2022, Expires: 10/12/2022 [facility] Work Phone: Comment on above: Expected: 08/12/2022, Expires: 3 Start: 08-12-2022 End: 10-12-2022 Hemoglobin A1c in Blood HGB A1C Lab Routine Diabetes mellitus due to underlying condition, uncontrolled, with hyperglycemia (HCC) Expected: 08/12/2022, Expires: 10/12/2022 [facility] Work Phone: Comment on above: Expected: 08/12/2022, Expires: 3 Start: 08-12-2022 End: 10-12-2022 Lipid 1996 panel - Serum or Plasma LIPID PANEL BASIC Lab Routine Mixed hyperlipidemia Expected: 08/12/2022, Expires: 10/12/2022 [facility] Work Phone: Comment on above: Expected: 08/12/2022, Expires: 3 Start: 08-12-2022 End: 10-12-2022 PSA/PROSTSPECAG SCRN PSA/PROSTSPECAG SCRN Lab Routine Screening for prostate cancer Expected: 08/12/2022, Expires: 10/12/2022 [facility] Work Phone: Comment on above: Expected: 08/12/2022, Expires: 3 Start: 08-12-2022 End: 10-12-2022 Thyrotropin [Units/volume] in Serum or Plasma TSH BLD Lab Routine Hyponatremia Screening for thyroid disorder Expected: 08/12/2022, Expires: 10/12/2022 [facility] Work Phone: Comment on above: Expected: 08/12/2022, Expires: 3 Start: 08-11-2022 ANNUAL PCP TEAM CHRONIC DISEASE VISIT ANNUAL PCP TEAM CHRONIC DISEASE VISIT [facility] Start: 08-11-2022 BP CONTROLLED (<130/80) BP CONTROLLED (<130/80) [facility] Start: 08-05-2022 COVID-19 VACCINE (#1) COVID-19 VACCINE (#1) [facility] Comment on above: Postponed from 12/01/1964 (Declined at t his time) Postponed from 05/31 (Declined at this time) Start: 08-05-2022 COVID-19 VACCINE (1) COVID-19 VACCINE (1) [facility] Comment on above: Postponed from 12/01/1964 (Declined at t his time) Start: 08-05-2022 ONE PNEUMOVAX PRIOR TO AGE 65 ONE PNEUMOVAX PRIOR TO AGE 64 [facility] Comment on above: Postponed from 1975 (Declined at t his time) Start: 08-05-2022 PNEUMOCOCCAL (1 - PCV) PNEUMOCOCCAL (1 - PCV) [facility] Comment on above: Postponed from 12/01/1965 (Declined at t his time) Start: 08-02-2022 End: 10-02-2022 ALBUMIN/CREAT RATIO RND UR ALBUMIN/CREAT RATIO RND UR Lab Routine Microalbuminuria Expected: 08/02/2022, Expires: 10/02/2022 [facility] Work Phone: Comment on above: Expected: 08/02/2022, Expires: Start: 07-12-2022 Hemoglobin A1c/Hemoglobin.total in Blood HBA1C [facility] Start: 07-05-2022 ANNUAL PCP TEAM CHRONIC DISEASE VISIT ANNUAL PCP TEAM CHRONIC DISEASE VISIT [facility] Start: 07-05-2022 Hepatitis B screening URINE ALBUMIN:CREATININE RATIO [facility] Start: 07-05-2022 Hepatitis B surface antibody level LDL CHOLESTEROL [facility] Start: 06-02-2022 3 comp foot exam completed DIABETIC FOOT EXAM [facility] Start: 06-02-2022 ANNUAL PCP TEAM CHRONIC DISEASE VISIT ANNUAL PCP TEAM CHRONIC DISEASE VISIT [facility] Start: 05-31-2022 Hemoglobin A1c/Hemoglobin.total in Blood HBA1C [facility] Start: 05-18-2022 End: 02-12-2023 25-hydroxyvitamin D3 [Mass/volume] in Serum or Plasma VITAMIN D 25 HYDROXY Lab Routine Vitamin D deficiency Expected: 05/18/2022, Expires: 02/12/2023 [facility] Work Phone: Comment on above: Expected: 05/18/2022, Expires: 3 Start: 05-18-2022 End: 07-18-2022 Comprehensive metabolic 2000 panel - Serum or Plasma COMP METABOLIC PANEL Lab Routine Hypertension, essential Hyponatremia Stage 3a chronic kidney disease (HCC) Expected: 05/18/2022, Expires: 07/18/2022 [facility] Work Phone: Comment on above: Expected: 05/18/2022, Expires: 3 Start: 05-18-2022 End: 07-18-2022 Lipid 1996 panel - Serum or Plasma LIPID PANEL BASIC Lab Routine Mixed hyperlipidemia Expected: 05/18/2022, Expires: 07/18/2022 [facility] Work Phone: Comment on above: Expected: 05/18/2022, Expires: 3 Start: 05-18-2022 End: 07-18-2022 Thyrotropin [Units/volume] in Serum or Plasma TSH BLD Lab Routine Hypertension, essential Expected: 05/18/2022, Expires: 07/18/2022 [facility] Work Phone: Comment on above: Expected: 05/18/2022, Expires: 3 Start: 04-09-2022 Hepatitis B screening URINE ALBUMIN:CREATININE RATIO [facility] Start: 04-09-2022 Hepatitis B surface antibody level LDL CHOLESTEROL [facility] Start: 04-05-2022 Hemoglobin A1c/Hemoglobin.total in Blood HBA1C [facility] Start: 03-01-2022 End: 11-26-2022 25-hydroxyvitamin D3 [Mass/volume] in Serum or Plasma VITAMIN D 25 HYDROXY Lab Routine Vitamin D deficiency Expected: 03/01/2022, Expires: 11/26/2022 [facility] Work Phone: Comment on above: Expected: 03/01/2022, Expires: 3 Start: 03-01-2022 End: 05-01-2022 Lipid 1996 panel - Serum or Plasma LIPID PANEL BASIC Lab Routine Mixed hyperlipidemia Expected: 03/01/2022, Expires: 05/01/2022 [facility] Work Phone: Comment on above: Expected: 03/01/2022, Expires: 3 Start: 02-05-2022 Hemoglobin A1c/Hemoglobin.total in Blood HBA1C [facility] Start: 01-05-2022 Hemoglobin A1c/Hemoglobin.total in Blood HBA1C [facility] Start: 12-21-2021 Hemoglobin A1c/Hemoglobin.total in Blood HBA1C [facility] Start: 2021 Influenza vaccination INFLUENZA (#1) [facility] Start: 11-11-2021 Hemoglobin A1c/Hemoglobin.total in Blood HBA1C [facility] Start: 11-05-2021 End: 08-02-2022 25-hydroxyvitamin D3 [Mass/volume] in Serum or Plasma VITAMIN D 25 HYDROXY Lab Routine Vitamin D deficiency Expected: 11/05/2021, Expires: 08/02/2022 [facility] Work Phone: Comment on above: Expected: 11/05/2021, Expires: 3 Start: 11-05-2021 End: 08-02-2022 Basic metabolic 2000 panel - Serum or Plasma BASIC METABOLIC PNL Lab Routine Hyponatremia Expected: 11/05/2021, Expires: 08/02/2022 [facility] Work Phone: Comment on above: Expected: 11/05/2021, Expires: 3 Start: 11-05-2021 End: 01-05-2022 Lipid 1996 panel - Serum or Plasma LIPID PANEL BASIC Lab Routine Mixed hyperlipidemia Expected: 11/05/2021, Expires: 01/05/2022 [facility] Work Phone: Comment on above: Expected: 11/05/2021, Expires: 2 Start: 10-27-2021 End: 12-27-2021 PSA/PROSTSPECAG SCRN PSA/PROSTSPECAG SCRN Lab Routine Benign prostatic hyperplasia with nocturia Hematuria, microscopic Screening PSA (prostate specific antigen) Nocturia Expected: 10/27/2021, Expires: 12/27/2021 [facility] Work Phone: Comment on above: Expected: 10/27/2021, Expires: 2 Start: 10-05-2021 End: 12-05-2021 Clostridioides difficile toxin genes [Presence] in Stool by BETO with probe detection C. DIFFICILE PCR Lab Routine Diarrhea, unspecified type Expected: 10/05/2021, Expires: 12/05/2021 [facility] Work Phone: Comment on above: Expected: 10/05/2021, Expires: 2 Start: 10-05-2021 End: 12-05-2021 Gastrointestinal pathogens panel - Stool by Culture STOOL CULTURE/EIA Microbiology Routine Diarrhea, unspecified type Expected: 10/05/2021, Expires: 12/05/2021 [facility] Work Phone: Comment on above: Expected: 10/05/2021, Expires: 2 Start: 10-05-2021 End: 12-05-2021 Giardia lamblia+Cryptosporidium sp Ag [Presence] in Stool by Immunoassay CRYPTOSPORIDIUM AND GIARDIA ANTIGENS BY EIA Microbiology Routine Diarrhea, unspecified type Expected: 10/05/2021, Expires: 12/05/2021 [facility] Work Phone: Comment on above: Expected: 10/05/2021, Expires: 2 Start: 10-04-2021 Hemoglobin A1c/Hemoglobin.total in Blood HBA1C [facility] Start: 09-20-2021 End: 06-17-2022 25-hydroxyvitamin D3 [Mass/volume] in Serum or Plasma [facility] Work Phone: Comment on above: Expected: 09/20/2021, Expires: 3 Start: 09-20-2021 End: 06-17-2022 Comprehensive metabolic 2000 panel - Serum or Plasma [facility] Work Phone: Comment on above: Expected: 09/20/2021, Expires: 3 Start: 09-20-2021 End: 11-20-2021 Lipid 1996 panel - Serum or Plasma [facility] Work Phone: Comment on above: Expected: 09/20/2021, Expires: 2 Start: 09-20-2021 End: 11-20-2021 Thyrotropin [Units/volume] in Serum or Plasma [facility] Work Phone: Comment on above: Expected: 09/20/2021, Expires: 2 Start: 09-02-2021 Hemoglobin A1c/Hemoglobin.total in Blood HBA1C [facility] Start: 08-11-2021 BP CONTROLLED (<130/80) BP CONTROLLED (<130/80) [facility] [facility] [place] inic Start: 08-11-2021 End: 05-08-2022 Comprehensive metabolic 2000 panel - Serum or Plasma COMP METABOLIC PANEL Lab Routine Elevated alkaline phosphatase level Elevated serum creatinine Hyperkalemia Expected: 08/11/2021, Expires: 05/08/2022 [facility] Work Phone: Comment on above: Expected: 08/11/2021, Expires: 3 Start: 08-11-2021 End: 10-11-2021 LIPID PANEL BASIC LIPID PANEL BASIC Lab Routine Mixed hyperlipidemia Expected: 08/11/2021, Expires: 10/11/2021 [facility] Work Phone: Comment on above: Expected: 08/11/2021, Expires: 2 Start: 08-05-2021 Influenza vaccination LUNG CANCER SCREENING [facility] Start: 07-31-2021 Hepatitis C antibody, confirmatory test DILATED RETINAL EXAM [facility] Start: 07-24-2021 Colonoscopy COLONOSCOPY [facility] Start: 07-24-2021 COLORECTAL CANCER SCREENING COLORECTAL CANCER SCREENING [facility] Start: 07-24-2021 Screening for malignant neoplasm of colon [facility] Start: 05-28-2021 Adult depression screening assessment DEPRESSION SCREENING [facility] Start: 05-28-2021 ANNUAL PCP TEAM CHRONIC DISEASE VISIT ANNUAL PCP TEAM CHRONIC DISEASE VISIT [facility] Start: 05-14-2021 Hepatitis B screening URINE ALBUMIN:CREATININE RATIO [facility] Start: 05-14-2021 Hepatitis B surface antibody level LDL CHOLESTEROL [facility] Start: 04-27-2021 ANNUAL PCP TEAM CHRONIC DISEASE VISIT ANNUAL PCP TEAM CHRONIC DISEASE VISIT [facility] Start: 03-23-2021 [object Object] DIABETIC FOOT EXAM [facility] Start: 03-23-2021 ANNUAL PCP TEAM CHRONIC DISEASE VISIT ANNUAL PCP TEAM CHRONIC DISEASE VISIT [facility] Start: 02-19-2021 ANNUAL PCP TEAM CHRONIC DISEASE VISIT ANNUAL PCP TEAM CHRONIC DISEASE VISIT [facility] Start: 02-16-2021 Hepatitis B screening URINE ALBUMIN:CREATININE RATIO [facility] Start: 02-16-2021 Hepatitis B surface antibody level LDL CHOLESTEROL [facility] Start: 02-13-2021 Adult depression screening assessment DEPRESSION SCREENING [facility] Start: 08-11-2020 HbA1c (Bld) [Mass fraction] HBA1C [facility] Start: 05-19-2020 HbA1c (Bld) [Mass fraction] HBA1C [facility] Start: 05-18-2020 SHINGRIX VACCINE (2 of 2) SHINGRIX VACCINE (2 of 2) [facility] Start: 04-27-2020 End: 04-27-2021 HbA1c (Bld) [Mass fraction] HGB A1C Lab Routine Diabetes mellitus due to underlying condition, uncontrolled, with hyperglycemia (HCC) Expected: 04/27/2020, Expires: 04/27/2021 [facility] Comment on above: Expected: 04/27/2020, Expires: 2 Start: 02-14-2020 End: 02-13-2021 HbA1c (Bld) [Mass fraction] HGB A1C Lab Routine Controlled type 2 diabetes mellitus without complication, without long-term current use of insulin (HCC) Expected: 02/14/2020, Expires: 02/13/2021 [facility] Comment on above: Expected: 02/14/2020, Expires: 1 Start: 12-03-2019 Influenza vaccination INFLUENZA (#1) [facility] Start: 2019 Hepatitis B Vaccine (1 of 3 - Risk 3-dose series) Hepatitis B Vaccine (1 of 3 - Risk 3-dose series) [facility] Start: 2019 RSV Immunization aged 60 or older (1 - 1-dose 60+ series) RSV Immunization aged 60 or older (1 - 1-dose 60+ series) [facility] Start: 2019 RSV Immunization for Adults (1 - Risk 60-74 years 1-dose series) RSV Immunization for Adults (1 - Risk 60-74 years 1-dose series) [facility] Start: 2019 RSV Vaccine (1 - 1-dose 60+ series) RSV Vaccine (1 - 1-dose 60+ series) [facility] Start: 2019 RSV Vaccine (1 - Risk 60-74 years 1-dose series) RSV Vaccine (1 - Risk 60-74 years 1-dose series) [facility] Start: 12-01-2014 PROSTATE CANCER SCREENING DISCUSSION PROSTATE CANCER SCREENING DISCUSSION [facility] Start: 12-01-2009 COLORECTAL CANCER SCREENING,SEE MODIFIER COLORECTAL CANCER SCREENING,SEE MODIFIER [facility] Start: 12-01-2009 Screening for malignant neoplasm of colon [facility] Start: 12-01-2009 SHINGRIX VACCINE (1 of 2) SHINGRIX VACCINE (1 of 2) [facility] Start: 12-01-2004 COLOGUARD (FIT-DNA) COLOGUARD (FIT-DNA) [facility] Start: 12-01-[address] COLONOGRAPHY [facility] Start: 12-01-2004 DIABETES SCREEN DIABETES SCREEN [facility] Start: 12-01-2004 FECAL OCCULT BLOOD FECAL OCCULT BLOOD [facility] Start: 12-01-2004 Screening for malignant neoplasm of colon [facility] Start: 12-01-2004 SIGMOIDOSCOPY SIGMOIDOSCOPY [facility] Start: 12-01-1994 LIPID SCREEN LIPID SCREEN [facility] Start: 12-01-1978 Urine microalbumin profile DTAP,TDAP,TD (1 - Tdap) [facility] Start: 12-01-1977 BP CONTROLLED (<130/80) BP CONTROLLED (<130/80) [facility] [place] in Start: 12-01-1977 HEPATITIS C SCREENING HEPATITIS C SCREENING [facility] Start: 12-01-1977 Hepatitis C screening Hepatitis C Screening [facility] Start: 12-01-1977 HIV SCREENING HIV SCREENING [facility] Start: 1975 ONE PNEUMOVAX PRIOR TO AGE 65 ONE PNEUMOVAX PRIOR TO AGE 65 [facility] Start: 1971 Depression Monitoring Depression Monitoring [facility] Start: 1971 Depression Screening Depression Screening [facility] Start: 12-01-1969 [object Object] DIABETIC FOOT EXAM [facility] Start: 12-01-1969 Diabetic foot examination Diabetes: Foot Exam [facility] Start: 12-01-1969 Glaucoma screening Diabetes: Retinopathy Screening [facility] Start: 12-01-1969 Hepatitis C antibody, confirmatory test DILATED RETINAL EXAM [facility] Start: 12-01-1969 Preventive dental service Diabetes: Dental Exam [facility] Start: 12-01-1965 PNEUMOCOCCAL (1 - PCV) PNEUMOCOCCAL (1 - PCV) [facility] Start: 12-01-1964 COVID-19 VACCINE (1) COVID-19 VACCINE (1) [facility] Start: 12-01-1960 MMR Vaccines (1 of 1 - Standard series) MMR Vaccines (1 of 1 - Standard series) [facility] Start: 05-31-1960 COVID-19 VACCINE (#1) COVID-19 VACCINE (#1) [facility] Start: 1959 Annual wellness visit Medicare Initial Physical (IPPE) [facility] Start: 1959 HIV screening HIV Screening [facility] Start: 1959 Lipid panel Lipid Panel [facility] Start: 1959 Screening for malignant neoplasm of colon [facility] ACCUCHECK B/O ACCUCHECK B/O La b Routine Diabetes mellitus due to underlying condition, uncontrolled, with hyperglycemia (HCC) Ordered: 01/03/2022 [facility] Work Phone: Comment on above: Ordered: 01/03/2022 ACCUCHECK B/O ACCUCHECK B/O La b Routine Diabetes mellitus due to underlying condition, uncontrolled, with hyperglycemia (HCC) Ordered: 03/01/2022 [facility] Work Phone: Comment on above: Ordered: 03/01/2022 ACCUCHECK B/O ACCUCHECK B/O La b Routine Diabetes mellitus due to underlying condition, uncontrolled, with hyperglycemia (HCC) Ordered: 05/18/2022 [facility] Work Phone: Comment on above: Ordered: 05/18/2022 End: 02-13-2021 ALBUMIN/CREAT RATIO RND UR ALBUMIN/CREAT RATIO RND UR Lab Routine Controlled type 2 diabetes mellitus without complication, without long-term current use of insulin (HCC) 1 Occurrences starting 02/14/2020 until 02/13/2021 [facility] Comment on above: 1 Occurrences starting 02/14/2020 until 02/13/2021 End: 04-27-2021 ALBUMIN/CREAT RATIO RND UR ALBUMIN/CREAT RATIO RND UR Lab Routine Diabetes mellitus due to underlying condition, uncontrolled, with hyperglycemia (HCC) 1 Occurrences starting 04/27/2020 until 04/27/2021 [facility] Comment on above: 1 Occurrences starting 04/27/2020 until 04/27/2021 Bacteria identified in Blood by Culture [facility] [employer] Work Phone: Bacteria identified in Blood by Culture Blood culture Site #1 - Suspected Infection Microbiology STAT 11/27/2024 3:39 AM EDT [facility] [employer] Work Phone: End: 02-13-2021 CBC W Auto Differential panel - Blood CBC + DIFF Lab Routine Routine physical examination 1 Occurrences starting 02/14/2020 until 02/13/2021 [facility] Comment on above: 1 Occurrences starting 02/14/2020 until 02/13/2021 Comprehensive metabo lic 2000 panel COMP METABOLIC PANEL Lab Routine Routine physical examination 1 Occurrences starting 02/14/2020 [facility] Comment on above: 1 Occurrences starting 02/14/2020 End: 02-19-2021 CREATININE BLD CREATININE BLD Lab Routine Dizziness 1 Occurrences starting 02/20/2020 until 02/19/2021 [facility] Comment on above: 1 Occurrences starting 02/20/2020 until 02/19/2021 Ct angiography head w/contrast/noncontrast CTA HEAD WO/W IVCON Radiology Routine Dizziness and giddiness Ordered: 02/20/2020 [facility] Comment on above: Ordered: 02/20/2020 End: 07-05-2023 Ct thorax w/o contrast material CT CHEST WO IVCON Radiology Routine Pulmonary nodules 1 Occurrences starting 06/05/2022 until 07/05/2023 [facility] Work Phone: Comment on above: 1 Occurrences starting 06/05/2022 until 07/05/2023 ECG B/O WO INTERP ( ED OFFICE) [facility] Comment on above: Ordered: 02/14/2020 Ordered: 02/20/2020 Ordered: 05/28/2020 ECG B/O WO INTERP (M ED OFFICE) ECG B/O WO INTERP (MED OFFICE) ECG Routine Hypertension, essential Ordered: 08/12/2022 [facility] Work Phone: Comment on above: Ordered: 08/12/2022 ECG B/O WO INTERP (M ED OFFICE) ECG B/O WO INTERP (MED OFFICE) ECG Routine Myocardial infarction due to demand ischemia (HCC) Hypertension, essential Ordered: 09/28/2022 [facility] Work Phone: Comment on above: Ordered: 09/28/2022 End: 10-14-2023 Echocardiography ECHO Cardiology Routine OTT (dyspnea on exertion) 1 Occurrences starting 10/13/2022 until 10/14/2023 [facility] Work Phone: Comment on above: 1 Occurrences starting 10/13/2022 until 10/14/2023 Glucose [Mass/volume ] in Serum or Plasma GLUCOSE, BLOOD (POC) Lab Routine Diabetes mellitus due to underlying condition, uncontrolled, with hyperglycemia (HCC) Ordered: 08/11/2021 [facility] Work Phone: Comment on above: Ordered: 08/11/2021 Glucose [Mass/volume ] in Serum or Plasma GLUCOSE, BLOOD (POC) Lab Routine Diabetes mellitus due to underlying condition, uncontrolled, with hyperglycemia (HCC) Ordered: 09/20/2021 [facility] Work Phone: Comment on above: Ordered: 09/20/2021 Glucose [Mass/volume ] in Serum or Plasma GLUCOSE, BLOOD (POC) Lab Routine Diabetes mellitus due to underlying condition, uncontrolled, with hyperglycemia (HCC) Ordered: 10/05/2021 [facility] Work Phone: Comment on above: Ordered: 10/05/2021 H&P for surgery H&P FOR SURGERY Procedures Routine History of rectal cancer Ordered: 09/02/2022 [facility] Work Phone: Comment on above: Ordered: 09/02/2022 Hemoglobin A1c/Hemoglobin.total in Blood HEMOGLOBIN A1C (POC) Lab Routine Diabetes mellitus due to underlying condition, uncontrolled, with hyperglycemia (HCC) Ordered: 08/11/2021 [facility] Work Phone: Comment on above: Ordered: 08/11/2021 Hemoglobin A1c/Hemoglobin.total in Blood HEMOGLOBIN A1C (POC) Lab Routine Diabetes mellitus due to underlying condition, uncontrolled, with hyperglycemia (HCC) Ordered: 09/20/2021 [facility] Work Phone: Comment on above: Ordered: 09/20/2021 Hemoglobin A1c/Hemoglobin.total in Blood HEMOGLOBIN A1C (POC) Lab Routine Diabetes mellitus due to underlying condition, uncontrolled, with hyperglycemia (HCC) Ordered: 10/05/2021 [facility] Work Phone: Comment on above: Ordered: 10/05/2021 End: 02-13-2021 HEP C AB IA W/CONF SCRN HEP C AB IA W/CONF SCRN Lab Routine Special screening examination for viral disease 1 Occurrences starting 02/14/2020 until 02/13/2021 [facility] Comment on above: 1 Occurrences starting 02/14/2020 until 02/13/2021 HGBA1C B/O (AG) HGBA1C B/O (AG) Lab Routine Diabetes mellitus due to underlying condition, uncontrolled, with hyperglycemia (HCC) Ordered: 01/03/2022 [facility] Work Phone: Comment on above: Ordered: 01/03/2022 HGBA1C B/O (AG) HGBA1C B/O (AG) Lab Routine Diabetes mellitus due to underlying condition, uncontrolled, with hyperglycemia (HCC) Ordered: 03/01/2022 [facility] Work Phone: Comment on above: Ordered: 03/01/2022 HGBA1C B/O (AG) HGBA1C B/O (AG) Lab Routine Diabetes mellitus due to underlying condition, uncontrolled, with hyperglycemia (HCC) Ordered: 05/18/2022 [facility] Work Phone: Comment on above: Ordered: 05/18/2022 HGBA1C B/O (AG) HGBA1C B/O (AG) Lab Routine Diabetes mellitus due to underlying condition, uncontrolled, with hyperglycemia (HCC) Ordered: 06/29/2022 [facility] Work Phone: Comment on above: Ordered: 06/29/2022 End: 02-13-2021 HIV 1+2 Ab IA Ql HIV 1 2 COMBO(AG/AB),WITH REFLEX TO DIFFERENTIATION Lab Routine Screening for HIV (human immunodeficiency virus) 1 Occurrences starting 02/14/2020 until 02/13/2021 [facility] Comment on above: 1 Occurrences starting 02/14/2020 until 02/13/2021 INJECTION HIP JOINT (AG) INJECTI ON HIP JOINT (AG) Radiology Routine Primary osteoarthritis of left hip Ordered: 01/23/2023 [facility] Work Phone: Comment on above: Ordered: 01/23/2023 End: 02-13-2021 LIPID PANEL BASIC LIPID PANEL BASIC Lab Routine Routine physical examination 1 Occurrences starting 02/14/2020 until 02/13/2021 [facility] Comment on above: 1 Occurrences starting 02/14/2020 until 02/13/2021 End: 04-27-2021 LIPID PANEL BASIC LIPID PANEL BASIC Lab Routine Mixed hyperlipidemia 1 Occurrences starting 04/27/2020 until 04/27/2021 [facility] Comment on above: 1 Occurrences starting 04/27/2020 until 04/27/2021 End: 07-31-2023 MRI ARTHROGRAM HIP LEFT MRI ARTHROGRAM HIP LEFT Radiology Routine Pain in hip Chronic left hip pain 1 Occurrences starting 07/01/2022 until 07/31/2023 [facility] Work Phone: Comment on above: 1 Occurrences starting 07/01/2022 until 07/31/2023 End: 08-30-2022 MRI ARTHROGRAM HIP LEFT [facility] Work Phone: Comment on above: 1 Occurrences starting 08/30/2022 until 08/30/2022 Mri pelvis w/o & w/contrast material MRI PELVIS WO/W IVCON Radiology Routine Malignant neoplasm of rectosigmoid junction (HCC) 08/09/2021 5:06 PM EDT [facility] Work Phone: End: 10-02-2023 Mri spinal canal [...] present 1 Occurrences starting 09/02/2022 until 10/02/2023 [facility] Work Phone: Comment on above: 1 Occurrences starting 09/02/2022 until 10/02/2023 End: 11-12-2023 NM CARDIAC PERF STRESS/PHARM NM CARDIAC PERF STRESS/PHARM Radiology Routine Precordial pain OTT (dyspnea on exertion) Primary hypertension 1 Occurrences starting 10/13/2022 until 11/12/2023 [facility] Work Phone: Comment on above: 1 Occurrences starting 10/13/2022 until 11/12/2023 PAP TITRATION PSG (C PAP, BIPAP, ASV) PAP TITRATION PSG (CPAP, BIPAP, ASV) Procedures Routine MEKHI (obstructive sleep apnea) Ordered: 10/05/2021 [facility] Work Phone: Comment on above: Ordered: 10/05/2021 PAP TITRATION PSG (C PAP, BIPAP, ASV) PAP TITRATION PSG (CPAP, BIPAP, ASV) Procedures Routine MEKHI (obstructive sleep apnea) Ordered: 05/18/2022 [facility] Work Phone: Comment on above: Ordered: 05/18/2022 Prostate specific Ag [Mass/Vol] PSA/PROSTSPECAG DIAG Lab Routine Routine physical examination 1 Occurrences starting 02/14/2020 [facility] Comment on above: 1 Occurrences starting 02/14/2020 PT ED PATIENT INFORMATION PT ED PATIENT INFORMATION Other 05/30/2020 [facility] PT PLAN OF CARE CERTIFICATION PT PLAN OF CARE CERTIFICATION Procedures Routine Chronic bilateral low back pain, unspecified whether sciatica present Weakness Decreased mobility and endurance Ordered: 05/05/2020 [facility] Comment on above: Ordered: 05/05/2020 Radex hip unilateral with pelvis 1 view XR HIP 1V UNIL W PELVIS WHEN PERFORMED (AG) Radiology Routine Pain in left hip Ordered: 10/09/2022 [facility] Work Phone: Comment on above: Ordered: 10/09/2022 Radex shoulder compl ete minimum 2 views XR SHOULDER GENERAL 3V OR MORE AP/TRUE AP/OTHER LT Radiology Routine Left shoulder pain, unspecified chronicity Ordered: 04/27/2020 [facility] Comment on above: Ordered: 04/27/2020 End: 03-15-2021 Radex spine lumbosacral 2/3 views XR LUMBAR GENERAL 3V AP/LAT/L5-S1 Radiology Routine Chronic bilateral low back pain with sciatica, sciatica laterality unspecified 1 Occurrences starting 02/14/2020 until 03/15/2021 [facility] Comment on above: 1 Occurrences starting 02/14/2020 until 03/15/2021 End: 09-03-2023 Screening colonoscopy COLONOSCOPY SCREENING Endoscopy Routine History of rectal cancer 1 Occurrences starting 09/02/2022 until 09/03/2023 [facility] Work Phone: Comment on above: 1 Occurrences starting 09/02/2022 until 09/03/2023 End: 02-19-2025 Screening colonoscopy COLONOSCOPY SCREENING Endoscopy Routine History of rectal cancer 1 Occurrences starting 02/20/2024 until 02/19/2025 [facility] Work Phone: Comment on above: 1 Occurrences [...] Upon Ordering for 1 Occurrences starting 05/13/2024 [facility] Work Phone: Comment on above: Release Upon Ordering for 1 Occurrences starting 05/13/2024 End: 02-13-2021 TSH Qn TSH BLD Lab Routine Routine physical examination 1 Occurrences starting 02/14/2020 until 02/13/2021 [facility] Comment on above: 1 Occurrences starting 02/14/2020 until 02/13/2021 Urinalysis complete panel - Urine URINALYSIS, WITH MICROSCOPIC Lab Routine Dysuria 1 Occurrences starting 04/27/2020 [facility] Comment on above: 1 Occurrences starting 04/27/2020 VITAMIN D 25 HYDROXY VITAMIN D 2 5 HYDROXY Lab Routine Routine physical examination 1 Occurrences starting 02/14/2020 [facility] Comment on above: 1 Occurrences starting 02/14/2020 End: 07-31-2023 XR INJ ARTHROGRAM HIP LEFT XR INJ ARTHROGRAM HIP LEFT Radiology Routine Pain in hip Chronic left hip pain 1 Occurrences starting 07/01/2022 until 07/31/2023 [facility] Work Phone: Comment on above: 1 Occurrences starting 07/01/2022 until 07/31/2023 End: 08-30-2022 XR INJ ARTHROGRAM HIP LEFT XR INJ ARTHROGRAM HIP LEFT Radiology Routine Pain in hip Chronic left hip pain 1 Occurrences starting 08/30/2022 until 08/30/2022 [facility] Work Phone: Comment on above: 1 Occurrences starting 08/30/2022 until 08/30/2022 [facility] Immunizations Immunization Date Immunization Notes Care Provider [facility] 08-12-2022 pneumococcal polysaccharide vaccine, 23 valent Belgica Vega DO Work Phone: [facility] 03-01-2022 influenza, injectabl e, quadrivalent, contains preservative Belgica Vega DO Work Phone: [facility] 03-01-2022 influenza virus vacc ine, unspecified formulation Belgica Je DO Work Phone: [facility] 01-08-2021 influenza, injectabl e, quadrivalent, contains preservative Janievega Pickett VISUAL EDUCATION DIRECTOR.BARREL PAINTER Work Phone: [facility] 10-19-2020 tetanus toxoid, redu anna diphtheria toxoid, and acellular pertussis vaccine, adsorbed Janie Nieves VISUAL EDUCATION DIRECTOR.BARREL PAINTER Work Phone: [facility] 10-19-2020 zoster vaccine recombinant Janie Pickett APRN.BARREL PAINTER Work Phone: [facility] 03-23-2020 influenza, injectabl e, quadrivalent, contains preservative Belgica Javier [facility] 03-23-2020 zoster vaccine recombinant Belgicaluca Herrera [facility] Payers Date Payer Category Payer Self-pay 2023 Medicare (Managed Care) [facility] DUAL COMPLETE HMO POS SNP [id number] 2023 Medicare HMO [employer] DUAL COMPLET E [id number] 2022 Unknown [id number] 2021 Medicaid [id number] 2020 Medicaid [id number] 2020 Medicaid [id number] 2020 Medicare [id number] 2020 Medicare [id number] 2020 Medicare [id number] Unknown [id number] Unknown [id number] Unknown [id number] Unknown [id number] Unknown [id number] Social History Date Type Detail Facility Start: 02-14-2020 End: 07-10-2024 Tobacco smoking status NHIS Former smoker [facility] Start: 02-14-2020 End: 07-10-2024 Tobacco use and exposure Never used [facility] Start: 02-14-2020 End: 07-10-2024 Alcohol intake Ex-drinker (finding) [facility] Start: 1960 Sex Assigned At Not on file [facility] Start: 08-10-2020 End: 01-20-2022 Exposure to SARS-CoV-2 (event) Not sure [facility] Start: 04-03-1973 End: 04-03-2010 History of tobacco use Current smoker [facility] Start: 04-03-1973 End: 04-03-2010 History of tobacco use Cigarette Smoker [facility] Start: 04-19-2021 End: 11-26-2024 Cigarettes smoked current (pack per day) - Reported 1 [facility] Start: 09-23-2020 End: 01-18-2022 History SDOH Alcohol Frequency 1 [facility] Start: 09-23-2020 End: 12-28-2021 History SDOH Social Connections Phone 5 [facility] Start: 09-23-2020 End: 12-28-2021 History SDOH Social Connections Membership 2 [facility] Start: 09-23-2020 End: 12-28-2021 History SDOH Social Connections Living 7 [facility] Start: 09-23-2020 History SDOH Physical Activity DPW 0 [facility] Start: 09-23-2020 History SDOH Stress 4 [facility] Start: 09-23-2020 Education 9 [facility] Start: 04-12-2021 End: 01-03-2022 Tobacco Comment Smokes [place] [facility] Start: 1960 Sex Assigned At Male [facility] Work Phone: Start: 01-18-2022 History SDOH Housing Unable to Pay 3 [facility] Start: 12-28-2021 End: 11-26-2024 Social connection and isolation panel [facility] Do you belong to any clubs or organizations such as yarsani groups, unions, fraternal or athletic groups, or school groups? Yes [facility] Are you now , , , , never or living with a partner? Never [facility] How often to you hav e a drink containing alcohol? Never [facility] Average Number of Drinks Not on file [facility] Work Phone: Do you feel stress - tense, restless, nervous, or anxious, or unable to sleep at night because your mind is troubled all the time - these days [OSQ] Very much [facility] (I/We) worried wheth er (my/our) food would run out before (I/we) got money to buy more. DK or Refused [facility] Work Phone: Start: 09-04-2020 Gender identity Identifies as male gender (finding) [facility] Work Phone: Start: 09-04-2020 Sexual orientation Heterosexual (finding) [facility] Work Phone: Has the [employer] threatened to shut off services in your home in past 12Mo No [facility] How hard is it for y ou to pay for the very basics like food, housing, medical care, and heating Somewhat hard [facility] (I/We) worried wheth er (my/our) food would run out before (I/we) got money to buy more. Sometimes true [facility] (I/We) worried wheth er (my/our) food would run out before (I/we) got money to buy more. Never true [facility] [employer] Start: 08-01-2023 Sex Male (finding) [email or web address] [facility] [employer] Procedure Code Equipment Code Equipment Origin al Text Equipment Identifier Dates [id number] Start: 09-22-2020 End: 05-18-2022 Comment on above: [...] Iol 1 Piece Foldable Uv Blue - [id number] Start: 08-18-2022 Lens Acrysof Ultrasert +23 Diopter Acrylic Iol 1 Piece Foldable Uv Blue - [id number] Start: 09-08-2022 Catheter Glidepa th 14.5fr Straight Polyurethane 28cm 23cm Hemodialysis Kit - [id number] Start: 07-18-2024 Goals Date Patient Goal Desired [...] serious difficulty hearing No 10/20/2023 2:19 PM Ester Elaine RN No [facility] 10-20-2023 Are you blind, or do you have serious difficulty seeing, even when wearing glasses No 10/20/2023 2:19 PM Ester Elaine RN No [facility] 10-20-2023 Do you have serious difficulty walking or climbing stairs Yes 10/20/2023 2:19 PM Ester Elaine RN Yes [facility] 10-20-2023 Do you have difficul ty dressing or bathing Yes 10/20/2023 2:19 PM Ester Elaine, LEATHA Yes [facility] 10-20-2023 Because of a physica l, mental, or emotional condition, do you have difficulty doing errands alone such as visiting a physician's office or shopping Yes 10/20/2023 2:19 PM Ester Elaine RN Yes [facility] Mental Status Date Assessment Result Facility 10-20-2023 Because of a physica l, mental, or emotional condition, do you have serious difficulty concentrating, remembering, or making decisions Yes 10/20/2023 2:19 PM Ester Elaine RN Yes [facility] Clinical Notes 05-05-2020 to 11-29-2024 Care Coordination - Jayro Mayen - 11/29/2024 2:17 PM EDTCare Coordination - Jayro Mcgills - 11/29/2024 2:17 PM EDTCare Coordination - Jayro Mayen - 11/29/2024 2:11 PM EDT Note Date & Type Note Facility 11-29-2024 Progress note Formatting of t his note might be different from the original. Confirmed pickup time of 330PM by transport [employer] JOSHUA DAVIS [employer] at phone number [phone]. Location of facility drop off is [facility] TO [facility]. Facility notified via [facility], TCC notified on secure chat. [facility] 11-29-2024 Miscellaneous Notes Confirmed pickup time of 330PM by transport [employer] SUSAN TOSA [employer] DUDLEY at phone number [phone]. Location of facility drop off is [facility] TO [facility]. Facility notified via Careport, TCC notified on secure chat. Transport requested 330 in Roundtrip. Awaiting time confirmation. Discharge med list transmitted to [facility] per [facility] request. Sent updated notes to [facility] per TCC request. Await review and response regarding ability to accept. TCC notified. Care Management Progress Note Short Medical why still here: shaking/ tremors. 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 Nephrology and endocrinology following. Plan for hemodialysis today. Planned Discharge Disposition: Custodial Facility ([facility]) insurance auth approved for his return (he is also a bedhold). Barriers/Today we still Wait: Administering IV medications, Clinical stability, Symptomatic control Length of Stay (Days): 4 GMLOS: 4.6 operations manager assistant to follow for discharge planning. 2:07 PM UPDATE: DC order noted Tasked FELT HAT FLANGING OPERATOR to send discharge paperwork and MAR to [facility]. Tasked her to arrange transportation via cot. Spoke with patient regarding transportation plan. Confirmed pickup time is 330. Discussed patient may have a co-pay for ambulance depending on their individual insurance coverage. Advised patient to call number on back of insurance card with questions or concerns. Updated bedside RN and community service director. Updated patient's sister per his request. Sent updated notes to return back to [facility] via [facility] per TCC request. Await review and response regarding ability to accept. TCC notified. Care Management Progress Note Short Medical why still here: persistent tremors/ shaking. Awaiting neuro consult. On IV vancomycin. Hemodialysis on Monday. Planned Discharge Disposition: Custodial Facility ([facility], bedhold but request precert) Barriers/Today we still Wait: Administering IV medications, Clinical stability, Symptomatic control, Store Sales Leader recommendations (comment) Length of Stay (Days): 3 GMLOS: 3.7 operations manager assistant to follow for discharge planning. Referral placed to return back to [facility] via [facility] per TCC request. Await review and response regarding ability to accept. TCC notified. Care Managment Initial Assessment Date: 11/27/2024 Patient Name: José Manuel Ashton : 1960 Patient Information Source of Information: Patient Cognition/Language: WFL - Within Functional Limits Permission given to speak with patient hospital sales representative/caregiver as indicated: Confirmation of Payer with patient/family: Yes Payer Name: [employer] MEDICARE/[facility] DUAL COMPLETE : No Confirmation of Primary Care Physician: Primary Caregiver: If assistance needed, confirmed caregiver ready, willing and able to care for patient at discharge: Confirmed with: Living Arrangements Current Residence: Number of Floors Number of Entry Steps: Bed/Bath Levels: Facility: Nursing Facility Skilled Facility Name: [facility] Plan to Return: Yes Lives [...] Services: Dialysis Type: Hemo Dialysis Provider Name/Location: [facility] M-F Durable Medical Equipment: Wheelchair (standard or power), Cane Patient's Goal/Discharge Plan Patient expects to be discharged to: [facility] Discharge Planning Actions: Continue to follow, Custodial Facility referral indicated Patient's Choice Rights and [employer] and Collaborative Relationships Disclosed as Indicated for Post-Acute Care: NA Interdisciplinary Team Engagement: Social Work Referral for: Additional Information: Spoke with patient at their bedside. Introduced self and role. Discussed discharge planning. Patient has health insurance and prescription coverage. Patient states he lives at [facility] and plans to return. Tasked FELT HAT FLANGING OPERATOR to [facility]. Will await response. He receives hemodialysis there Monday through Monday. He will need ambulance transport with cot upon discharge. follow up manager will continue to follow for any discharge planning needs. 2:46 PM UPDATE: Patient is a bedhold at [facility]. They would like to skill him for his return but he may return regardless when medically ready. They are submitting precert today. SW call to [facility] Home coverage line. Per [facility] coverage line, he was denied Assisted Living due to alf fdc care placement at [facility]. TCC notified. Care Management Progress Note Short Medical why still here: admitted for chills, received one dose of vancomycin. Blood cultures pending. Monitoring renal labs. On hemodialysis M-F at intermediate facility. Nephrology and endocrinology following. Planned Discharge Disposition: Custodial Facility (patient came from [facility], anticipate return but will confirm with patient and facility) Barriers/Today we still Wait: Administering IV medications, Clinical stability, Symptomatic control, Store Sales Leader recommendations (comment) Length of Stay (Days): 2 GMLOS: No GMLOS Documented documented in this encounter [facility] 11-29-2024 Progress note Formatting of t his note might be different from the original. Transport requested 330 in Roundtrip. Awaiting time confirmation. [facility] 11-29-2024 Progress note Formatting of t his note might be different from the original. Discharge med list transmitted to [facility] via [facility] per TCC request. [facility] 11-29-2024 Note Discharge Summary José Manuel Ashton [...] were stopped and he was discharged to [facility]. SIGNIFICANT DIAGNOSTIC STUDIES: CXR CONSULTANTS: Nephrology, Endocrinology, Neurology RECOMMENDED NEXT STEPS: Discharged to [facility]. Follow up final blood cultures. Physical Exam: Vitals: BP 153/83 Pulse 85 Temp 36.6 ?C (97.8 ?F) Resp 17 Ht 5' 10 (1.778 m) Wt 265 lb (120 kg) [...] gross lesions, rashes LABS: CBC: Recent Labs 11/27/2433811/28/24 0641 11/29/24 0706 WBC 5.0 5.1 5.2 RBC 2.93* 2.88* 2.79* HGB 8.5* 8.5* 8.2* HCT 26.7* 26.4* 26.1* MCV 91.1 91.7 93.5 RDW 12.6 12.8 12.8 PLT 216 227 222 BMP: Recent Labs 11/27/2433811/28/24 0641 11/29/24 0706 NA 144 143 144 K 4.8 4.7 5.1 CL 106 106 109* CO2 27 27 26 BUN 67* 43* 58* CREATININE 6.86* 4.87* 5.79* GLUCOSE 161* 135* 166* CALCIUM 9.0 8.8 8.9 ANIONGAP 11 10 9 LIVER PROFILE: Recent Labs 11/27/2433811/28/24 0641 11/29/24 0706 AST 17 28 22 [...] Your Medications These medications were sent to [facility] [address] [place] [address] Hours: Monday to Monday 10 am to [...] Complexity: follow up within 7-14 calendar days (32703) [] Severe Complexity: follow up within 7 calendar days (76838) FOLLOW UP TESTING, PENDING RESULTS OR REFERRALS AT TRANSITIONAL CARE VISIT: [] Yes [] No PENDING STUDIES: Final blood cultures DISPOSITION: SNF FACILITY/HOME CARE AGENCY NAME: [facility] INSTRUCTIONS TO MA/SW: Please call patient on day after discharge (must document patient contacted within 2 business days of discharge). FOLLOW UP QUESTIONS FOR MA/SW: 1. Did you get medications filled and taking them as instructed from discharge? 2. Are you following your discharge instructions from your hospital st (more content not included)... [facility] 11-29-2024 History of Present illness Narrative Department of Internal Medicine Division of Endocrinology, Diabetes, & Metabolism Endocrinology Note Patient Name: José Manuel Ashton : 1960 AGE: 63 y.o. [facility] A Admission Date: 11/25/2024 Visit Date: 11/29/2024 Reason for Endocrine Consult: DM/Pt on U300 insulin Provider/Team Requesting Consult: Dr. Hills PCP: Brittaney Garcia MD Outpt High School Sports Coach: [facility] ASSESSMENT: Type 2 diabetes mellitus with hyperglycemia, with alf insulin use Lethargy and chills HTN DM2 [...] low dose sliding scale Outpt Follow Up-- [facility] Endocrinology SUBJECTIVE/HPI: CHIEF COMPLAINT: Chief Complaint Patient presents with Altered Mental Status Pt presents to ED via EMS from [facility] for responding slowly and indicates he is cold. José Manuel Ashton is a 63 yo male who presented to ED from [facility] with Tremor, chills and delayed [...] Concerned he will receive pain meds at fdc BG controlled no change in doses 11/28/2024 [...] in bed Patient reports he resides at [facility] Patient not sure of insulin doses at [facility] - Does not give his own injections. [...] EAG Lab Results Component Value Date NA 144 11/29/2024 K 5.1 11/29/2024 CL 109 (H) 11/29/2024 CO2 26 11/29/2024 BUN 58 (H) 11/29/2024 CREATININE 5.79 (H) 11/29/2024 GLUCOSE 166 (H) 11/29/2024 CALCIUM 8.9 11/29/2024 No results found for: CHLPL, CHOL No results found for: TRIG No results found for: HDL No results found for: LDLCALC No results found for: VLDL No results found for: CHOLHDLRATIO No results found for: [id number] Lab Results Component Value Date TSH 3.04 11/28/2024 Radiology reportsas per the Radiologist Radiology: POCT glucose meter Result Date: 11/25/2024 Performed by: Felicita Daly[address] [address] CLIA ID: [id number] POCT glucose meter Result Date: 11/25/2024 Performed by: Felicita Daly[address] [address] CLIA ID: [id number] POCT glucose meter Result Date: 11/25/2024 Performed by: Felicita Daly[address] [address] CLIA ID: [id number] ECG 12 lead Sinus rhythm Low voltage, [...] original note were not included. OCCUPATIONAL THERAPY [facility]'s Name/MRN: José Manuel Ashton ([id number]) Date: 11/29/2024 Pt intended for OT treatment [...] muscle mass loss Fluid Accumulation: Mild Generalized Angle Shearer Strength: Not Performed Nutrition Assessment: Pt is a 63 y/o male admitted to [facility] with complaints of Chills, weakness, and lethargy, no c/o CP, cough, nausea, vomiting. Respiratory panel wnl, COVID negative. Pt has ESRD on HD- on a Monday through Monday schedule at [facility]. Pt reports having a fair to decreased appetite. Pt is interested in trying Glucerna Shake once daily until his intakes/appetite is more consistent. Pt is unsure of his dry weight stating that he is not sure what a dry weight is. RD explained that it is a targeted weight. Per wt history, weighed 254# (07/10/24). Pt stated that sounds about right. Pt's CBW 265#. Estimated Daily Nutrient Needs: Energy Requirements Based On: Kcal/kg Weight Used for Energy Requirements: [place] Weight for Energy Calculation (kg): 75 kg Total Energy Requirements (kcals/day): 6246-2281 kcals (25-30 kcals/kg) Weight Used for Protein Requirements: [place] Weight in Kg Used for Protein Requirements: [...] Ordered Anthropometric Measures: Height: 177.8 cm (5' 10) Current Body Weight: 120 kg (265 lb) Weight Source: Not Specified Admission Body Weight: 113 kg (250 lb) Usual Body Weight: 115 kg (254 lb) (07/10/24) % Weight Change (Calculated): 4.3 [place] Body Weight (lbs) (Calculated): 166 lbs [place] Body Weight (Kg) (Calculated): 75 kg % [place] Body Weight (Calculated): 159.6 % BMI (kg/m2) [...] Oral Nutrition Supplement Arlin Juárez RD Contact: *[phone] or via Secure Chat Images from the original note were not included. OCCUPATIONAL THERAPY [facility] Treatment Note Name/MRN: José Manuel Ashton ([id number]) Date of : 1960 Age: 63 y.o. Room[facility]Bed: [facility] A Visit #: 1 out of 7 Discharge Recommendation: Custodial Facility Equipment Needed: No Assessment Patient was [...] Ashton : 1960 AGE: 63 y.o. Room/Bed: [facility] A Admission Date: 11/25/2024 Visit Date: 11/28/2024 Reason for Endocrine Consult: DM/Pt on U300 insulin Provider/Team Requesting Consult: Dr. Hills PCP: Brittaney Garcia MD Outpt High School Sports Coach: [facility] ASSESSMENT: Type 2 diabetes mellitus with hyperglycemia, with longwall foreman insulin use Lethargy and chills HTN DM2 [...] low dose sliding scale Outpt Follow Up-- [facility] Endocrinology SUBJECTIVE/HPI: CHIEF COMPLAINT: Chief Complaint Patient presents with Altered Mental Status Pt presents to ED via EMS from [facility] for responding slowly and indicates he is cold. José Manuel Ashton is a 63 yo male who presented to ED from [facility] with Tremor, chills and delayed [...] in bed Patient reports he resides at [facility] Patient not sure of insulin doses at [facility] - Does not give his own injections. [...] EAG Lab Results Component Value Date NA 143 11/28/2024 K 4.7 11/28/2024 CL 106 11/28/2024 CO2 27 11/28/2024 BUN 43 (H) 11/28/2024 CREATININE 4.87 (H) 11/28/2024 GLUCOSE 135 (H) 11/28/2024 CALCIUM 8.8 11/28/2024 No results found for: CHLPL, CHOL No results found for: TRIG No results found for: HDL No results found for: LDLCALC No results found for: VLDL No results found for: CHOLHDLRATIO No results found for: [id number] Lab Results Component Value Date TSH 3.04 11/28/2024 Radiology reportsas per the Radiologist Radiology: POCT glucose meter Result Date: 11/25/2024 Performed by: Felicita Daly [address] [place] [address] CLIA ID: [id number] POCT glucose meter Result Date: 11/25/2024 Performed by: Felicita Daly [address] [place] [address] CLIA ID: [id number] POCT glucose meter Result Date: 11/25/2024 Performed by: Felicita Daly [address] [place] [address] CLIA ID: [id number] ECG 12 lead Sinus rhythm Low voltage, [...] Patient Name: JOSÉ MANUEL ASHTON : 1960 [facility]#: [id number] Exam Date/Time: 11/25/2024 12:25 Procedure: XR CHEST [...] Date: 11/25/2024 PCP: Brittaney Garcia MD Room#: B4-466/B4-466 A Interval History: No cp, sob, cough, [...] 11 11 10 LIVER PROFILE: Recent Labs 11/26/247 11/27/24 0339 11/28/24 0641 AST 21 17 28 ALT 14 16 34 BILITOT 0.4 0.4 0.4 ALKPHOS 95 94 111 PROT 6.4 6.2* 6.1* PT/INR: No results for input(s): PROTIME, INR in the last 72 hours. CARDIAC ENZYMES: No results for input(s): TROPONINI in the last 72 hours. Procalcitonin: Lab Results Component Value Date PROCAL 0.30 (H) 11/26/2024 COVID-19 PCR: No results for input(s): COVID19 in the last 72 hours. Objective: Vitals: BP 129/66 (BP Location: Left arm, Patient Position: Sitting) Pulse 86 Temp 36.2 C (97.1 F) (Temporal) Resp 17 Ht 5' 10 (1.778 m) Wt 265 lb 8 oz [...] Janell Waldrop Mobile Relation: Sister Preferred language: [place]an Slot Machine Department Floorperson needed? No Flori Hills MD Division of [...] Sex: male Ht: Height: 177.8 cm (5' 10) TBW: Weight: 120 kg (265 lb 8 oz) BMI: Body mass index is 38.1 kg/m . Lab Results Component Value Date CREATININE 4.87 (H) 11/28/2024 CREATININE 6.86 (H) 11/27/2024 BUN 43 (H) 11/28/2024 BUN 67 (H) 11/27/2024 WBC 5.1 11/28/2024 WBC 5.0 11/27/2024 Renal: [x]HD []CRRT []PD [] CrCl ml/min (if TARYN, no PEDIGREE RESEARCHER) Infectious Diagnosis: sepsis (target level = 15-20 mg/L) Antimicrobials: Patient recently received an antibiotic (last 12 hours) Date/Time Action Medication Dose Rate 11/27/24 5675 New Bag vancomycin (Vancocin) 750 mg in [...] 9:13 AM Leida Harris RPh (available on [employer]) Images from the original note were not included. Pharmacy Managed Vancomycin Dosing Service Progress Note Consult Date: 11/27/24 Patient Name: José Manuel Ashton Allergies: Penicillins Age: 63 y.o. Sex: male Ht: Height: 177.8 cm (5' 10) TBW: Weight: 113 kg (250 lb) BMI: Body mass index is 35.87 kg/m . Lab Results Component Value Date CREATININE 6.86 (H) 11/27/2024 CREATININE 5.70 (H) 11/26/2024 BUN 67 (H) 11/27/2024 BUN 56 (H) 11/26/2024 WBC 5.0 11/27/2024 WBC 6.9 11/25/2024 Renal: [x]HD []CRRT []PD [] CrCl ml/min (if TARYN, no PEDIGREE RESEARCHER) Infectious Diagnosis: sepsis (target level = 15-20 [...] 1:51 PM Leida Harris RPh (available on [employer]) Hospitalist Progress Note 11/27/2024 Subjective: Admit Date: 11/25/2024 PCP: Brittaney Garcia MD Room#: B4-466/B4466 A Interval History: Having arm twitching and [...] 6.4 6.2* PT/INR: No results for input(s): PROTIME, INR in the last 72 hours. CARDIAC ENZYMES: No results for input(s): TROPONINI in the last 72 hours. Procalcitonin: Lab Results Component Value Date PROCAL 0.30 (H) 11/26/2024 COVID-19 PCR: No results for input(s): COVID19 in the last 72 hours. Objective: Vitals: BP 150/88 (BP Location: Right arm, Patient Position: Sitting) Pulse 90 Temp (!) 35.9 C (96.7 F) (Temporal) Resp 18 Ht 5' 10 (1.778 m) Wt 250 lb (113 kg) [...] Janell Waldrop Mobile Relation: Sister Preferred language: [place]an Slot Machine Department Floorperson needed? No Flori Hills MD Division of Hospitalist Medicine [facility] [1] Past Medical History: Diagnosis Date Anemia [...] ondansetron, oxyCODONE, polyethylene glycol (PEG) 3350 [4] [facility] Progress Note Subjective/ 63 y.o. year old male who we are seeing in consultation for ESRD. Interval History Admitted for weakness, chills, and lethargy Resting in bed, easily arousable Reports generalized pain BP stable Adequate PO intake ROS Otherwise negative No interval changes to [facility]. All interval notes/labs/imaging reviewed. Objective/ Vitals: 11/26/24 [...] 99 105 106 CO2 25 24 27 GLUCOSE 178* 123* 161* MG [...] to call with any questions or concerns. [facility] Office This note is [...] the above assessment and plan with the ASSOCIATE SOFTWARE DEVELOPER. I agree with above note. HD today. Sees Dr. Abiel dudley outpatient. We cover his patients here. Nutrition rescreen completed. Pt referred to RD for ESRD patient on HD. Department of Internal Medicine Division of Endocrinology, Diabetes, & Metabolism Endocrinology Note Patient Name: José Manuel Ashton : 1960 AGE: 63 y.o. Room/Bed: [facility]/B4-466 A Admission Date: 11/25/2024 Visit Date: 11/27/2024 Reason for Endocrine Consult: DM/Pt on U300 insulin Provider/Team Requesting Consult: Dr. Hills PCP: Brittaney Garcia MD Outpt High School Sports Coach: [facility] ASSESSMENT: Type 2 diabetes mellitus with hyperglycemia, with longwall foreman insulin use Lethargy and chills HTN DM2 [...] on day of discharge Outpt Follow Up-- [facility] Endocrinology SUBJECTIVE/HPI: CHIEF COMPLAINT: Chief Complaint Patient presents with Altered Mental Status Pt presents to ED via EMS from [facility] for responding slowly and indicates he is cold. José Manuel Ashton is a 63 yo male who presented to ED from [facility] center with Tremor, chills and delayed [...] in bed Patient reports he resides at [facility] Patient not sure of insulin doses at [facility] - Does not give his own injections. [...] Intake/Output Summary (Last 24 hours) at 11/27/2024 2372 Last data filed at 11/26/2024 2336 Gross [...] EAG Lab Results Component Value Date NA 144 11/27/2024 K 4.8 11/27/2024 CL 106 11/27/2024 CO2 27 11/27/2024 BUN 67 (H) 11/27/2024 CREATININE 6.86 (H) 11/27/2024 GLUCOSE 161 (H) 11/27/2024 CALCIUM 9.0 11/27/2024 No results found for: CHLPL, CHOL No results found for: TRIG No results found for: HDL No results found for: LDLCALC No results found for: VLDL No results found for: CHOLHDLRATIO No results found for: [id number] No results found for: TSH, E2LFQWK, R4DHBDB, THYROIDAB Radiology reportsas per the Radiologist Radiology: POCT glucose meter Result Date: 11/25/2024 Performed by: Felicita Daly [address] [place] [address] CLIA ID: [id number] POCT glucose meter Result Date: 11/25/2024 Performed by: Felicita Daly [address] [place] [address] CLIA ID: [id number] POCT glucose meter Result Date: 11/25/2024 Performed by: Felicita Daly [address] [place] [address] CLIA ID: [id number] ECG 12 lead Sinus rhythm Low voltage, [...] original note were not included. PHYSICAL THERAPY [facility] Initial Evaluation Name/MRN: José Manuel Ashton ([id number]) Evaluation Date: 11/26/2024 Date of : 1960 Admission Date: 11/25/2024 12:06 PM Age: 63 y.o. Room/Bed: B4-466/B4-466 A Discharge Recommendation: Custodial Facility Equipment Needed: No Assessment IMPRESSION: Pt [...] Raw Score (No Stairs) : 11 [facility] Score: Static standing (1 or more minutes) [...] of Care supervision is transferred to a [facility] Physical Therapist. Goals and/or [...] Sex: male Ht: Height: 177.8 cm (5' 10) TBW: Weight: 113 kg (250 lb) BMI: [...] dosing (Pulse Dosing). No results found for: VANCORANDOM Change to Pulse dosing and give Vancomycin 750 mg x1 today based on patient age, weight, renal status and infectious diagnosis. Will adjust dose/frequency if needed according to level. (Will schedule next level once HD schedule known) Follow renal status closely. Orders placed. Thank you for this consult. Please page/call with questions. Date: 11/26/24 Time: 1:20 PM Prasanth Springer RPh (available on [employer]) Images from the original note were not included. OCCUPATIONAL THERAPY [facility] Initial Evaluation Name/MRN: José Manuel Ashton ([id number]) Evaluation Date: 11/26/2024 Date of : 1960 Admission Date: 11/25/2024 12:06 PM Age: 63 y.o. Room/Bed: Discharge Recommendation: Custodial Facility Equipment Needed: No Assessment IMPRESSION: Pt [...] functional mobility. Recommend return to SNF at [place] with OT. Admitting Diagnosis: chills Performance Deficits [...] of Care supervision is transferred to a [facility] Occupational Therapist. Goals and/or [...] 6.9 6.4 PT/INR: No results for input(s): PROTIME, INR in the last 72 hours. CARDIAC ENZYMES: No results for input(s): TROPONINI in the last 72 hours. Procalcitonin: Lab Results Component Value Date PROCAL 0.30 (H) 11/26/2024 COVID-19 PCR: No results for input(s): COVID19 in the last 72 hours. Objective: Vitals: BP 137/56 (BP Location: Right arm) Pulse 82 Temp 36.5 C (97.7 F) (Oral) Resp 18 Ht 5' 10 (1.778 m) Wt 250 lb (113 kg) [...] Janell Waldrop Mobile Relation: Sister Preferred language: Zimbabwean Slot Machine Department Floorperson needed? No Flori Hills MD Division of Hospitalist Medicine Acute care [facility] [1] Past Medical History: Diagnosis Date Anemia [...] (PEG) 3350 [4] documented in this encounter [facility] 11-29-2024 Hospital Discharge instructions Christie Orozco RN - 11/29/2024 1:39 PM EDT Images from the original note were not included. Continuity of Care Form Patient Name: José Manuel Ashton : 1960 Admit date: 11/25/2024 Discharge date: 11/29/24 Code Status Order: Full Code Advance Directives: N Admitting Physician: Flori Hills MD PCP: Brittaney Garcia MD Discharging Nurse: Christie ZHANG Discharging Hospital Unit/Room#: B4-936/B4-508 A Discharging Unit Emergency Contact: Extended Emergency Contact Information Primary Emergency Contact: Janell Waldrop Mobile Relation: Sister Preferred language: [place]an Slot Machine Department Floorperson needed? No Past Surgical History: History reviewed. No pertinent surgical history. Immunization History: There is no immunization history on file for this patient. Active Problems: Medical Problems Problem List * (Principal) Chills Isolation/Infection: No active isolations No active infections Nurse Assessment: Last Vital Signs: BP 132/79 Pulse 86 Temp 36.7 C (98 F) Resp 18 Ht 5' 10 (1.778 m) Wt 265 lb (120 kg) [...] Minimal assistance Toileting Minimal assistance Feeding Independent Public Safety Telecommunicator Total assistance Med Delivery yes Wound Care [...] Status Date: 11/25/24 Discharging to Facility/ Agency [place] [place] [address] Dialysis Facility (if applicable) Name: Address: Dialysis Schedule: Phone: Fax: Senior Courtroom Clerk/Forensic Sergeant signature: ICIAN SECTION Name: José Manuel Ashton Prognosis: good Condition at Discharge: stable Rehab Potential (if transferring to Rehab): good Recommended Labs or Other Treatments After Discharge: BMP/CBC on 12/04/2024 The individual is being admitted to a nursing facility directly from an [facility] or a unit of a [facility] that is not operated by or licensed by [facility] under section 5119.14 or 5160-3-15.1 5 The individual requires the level of services provided by a nursing facility for the condition for which he or she was treated in the hospital and, Physician Certification: I certify the above information and transfer of José Manuel Ashton is necessary for the continuing treatment of the diagnosis listed and that he requires intermediate facility for less than 30 days. Update Admission H&P: No change in H&P PHYSICIAN SIGNATURE: documented in this encounter [facility] 11-29-2024 Note [facility] Progress Note Subjective/ 63 y.o. year old male who we are seeing in consultation for ESRD. Interval History Admitted for weakness, chills, and lethargy Sleeping during HD, wakes to stimuli Reports generalized pain with tremors/twitching Denies SOB, on RA BP stable Adequate PO intake ROS Otherwise negative No interval changes to [facility]. All interval notes/labs/imaging reviewed. Objective/ Vitals: 11/29/24 [...] to call with any questions or concerns. [facility] Office This note is [...] OR ondansetron, oxyCODONE, polyethylene glycol (PEG) 3350 [facility] 11-29-2024 Nurse Note 2.4L removed with tx, UF goal adjusted for BP Tolerated well Patient Name: José Manuel Ashton Patient : 1960 Acct: [id number] Date of Admission: 11/25/2024 Room/Bed: S5-[facility]/N3-[facility] A Code Status: Full Code Allergies: Allergies[1] [...] Regular Other (Comment) None (Room air) Diminished [place] Warm;Dry Good Soft;Rounded Active Generalized Non-pitting 11/29/24 1346 Alert (0) x4 Regular Other (Comment) None (Room air) -- [place] Warm;Dry Good Soft;Rounded Active Generalized Non-pitting Labs [...] - Before each treatment: Dialysis Machine No.: [id number] RO Machine Number: [id number] Dialyzer Lot No.: [id number] Tubing Lot Number: [id number] All Connections Secure: Yes Venous Parameters Set: Yes Arterial Parameters Set: Yes NS Bag: Yes Saline Line Double Clamped: Yes Dialyzer: Nipro Prime Volume (mL): 200 mL RO Machine Number: [id number] RO Machine Log Sheet Completed: Yes Machine Alarm Self Test: Completed, Passed (11/29/24931) Air Foam Detector: Tested, Proper Function, pH Reading Extracorporeal Circuit Tested for Integrity: Yes Machine Conductivity: 13.4 Manual Conductivity: 13.6 Manual Ph: 7.2 Bleach Test (Neg): Yes Bath Temperature: 36 C (96.8 F) Conductivity Meter Serial #: [id number] Machine Functioning Alarm Free? Yes Dialysis Bath: K+ (Potassium): 2 Ca+ (Calcium): 2.5 Na+ (Sodium): 137 HCO3 (Bicarb): 35 Bicarbonate Concentrate Lot No.: [id number] Acid Concentrate Lot No.: [id number] Chlorine Testing - Before each treatment and every 4 hours: Time On: 0932 Time Off: 1332 Treatment Goal: 3 Weight Height: 177.8 cm (5' 10) (11/28/24 1358) Weight: 120 kg (265 lb) (11/29/24 0300) BMI (Calculated): 38.02 (11/29/24 030) 1st check: [...] -- -- -- 120 kg (265 lb) 11/28/242 119/78 36.4 C (97.5 F) Temporal 85 16 91 % -- -- 11/28/24 1541 136/73 36.3 C (97.3 F) Temporal 86 16 96 % -- -- 11/28/24 1358 -- -- -- -- -- -- 1.778 m (5' 10) -- Post-Dialysis Arterial Catheter Locking Solution: Heparin [...] Patient Active Problem List Diagnosis Chills [3] [facility] 11-29-2024 Nurse Note 2.4L removed with tx, UF goal adjusted for BP Tolerated well Patient Name: José Manuel Ashton Patient : 1960 Acct: [id number] Date of Admission: 11/25/2024 Room[facility] A Code Status: Full Code Allergies: Allergies[1] [...] Regular Other (Comment) None (Room air) Diminished [place] Warm;Dry Good Soft;Rounded Active Generalized Non-pitting 11/29/24 1346 Alert (0) x4 Regular Other (Comment) None (Room air) -- [place] Warm;Dry Good Soft;Rounded Active Generalized Non-pitting Labs [...] - Before each treatment: Dialysis Machine No.: [id number] RO Machine Number: [id number] Dialyzer Lot No.: [id number] Tubing Lot Number: [id number] All Connections Secure: Yes Venous Parameters Set: Yes Arterial Parameters Set: Yes NS Bag: Yes Saline Line Double Clamped: Yes Dialyzer: Nipro Prime Volume (mL): 200 mL RO Machine Number: [id number] RO Machine Log Sheet Completed: Yes Machine Alarm Self Test: Completed, Passed (11/29/24931) Air Foam Detector: Tested, Proper Function, pH Reading Extracorporeal Circuit Tested for Integrity: Yes Machine Conductivity: 13.4 Manual Conductivity: 13.6 Manual Ph: 7.2 Bleach Test (Neg): Yes Bath Temperature: 36 C (96.8 F) Conductivity Meter Serial #: [id number] Machine Functioning Alarm Free? Yes Dialysis Bath: K+ (Potassium): 2 Ca+ (Calcium): 2.5 Na+ (Sodium): 137 HCO3 (Bicarb): 35 Bicarbonate Concentrate Lot No.: [id number] Acid Concentrate Lot No.: [id number] Chlorine Testing - Before each treatment and every 4 hours: Time On: 0932 Time Off: 1332 Treatment Goal: 3 Weight Height: 177.8 cm (5' 10) (11/28/24 1358) Weight: 120 kg (265 lb) [...] -- -- -- -- 1.778 m (5' 10) -- Post-Dialysis Arterial Catheter Locking Solution: Heparin [...] Notification Reason for Communication: Evaluate Provider Name: Cassiegalindobowen Provider Role: Hospitalist Method of Communication: Secure [...] José Manuel Ashton Patient : 1960 Acct: [id number] Date of Admission: 11/25/2024 [facility] A Code Status: Full Code Allergies: Allergies[1] [...] (0) 4 Regular None (Room air) Diminished [place] Warm;Dry -- -- -- Labs Lab Results [...] - Before each treatment: Dialysis Machine No.: [id number] RO Machine Number: [id number] Dialyzer Lot No.: [id number] Tubing Lot Number: [id number] All Connections Secure: Yes Venous Parameters Set: Yes Arterial Parameters Set: Yes NS Bag: Yes Saline Line Double Clamped: Yes Dialyzer: Nipro Prime Volume (mL): 200 mL RO Machine Number: [id number] RO Machine Log Sheet Completed: Yes Conductivity Meter Serial #: [id number] Machine Functioning Alarm Free? Yes Dialysis Bath: Chlorine Testing - Before each treatment and every 4 hours: Weight Height: 177.8 cm (5' 10) (11/26/24 1501) Weight: 113 kg (250 lb) [...] Diagnosis Chills [3] documented in this encounter [facility] 11-29-2024 Progress note Formatting of t his note might be different from the original. Sent updated notes to [facility] via [place] per [facility] request. Await review and response regarding ability to accept. TCC notified. [facility] 11-29-2024 Note Care Management Prog ress Note Short Medical why still here: shaking/ tremors. 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 Nephrology and endocrinology following. Plan for hemodialysis today. Planned Discharge Disposition: Custodial Facility ([facility]) insurance auth approved for his return (he is also a bedhold). Barriers/Today we still Wait: Administering IV medications, Clinical stability, Symptomatic control Length of Stay (Days): 4 GMLOS: 4.6 operations manager assistant to follow for discharge planning. 2:07 PM UPDATE: DC order noted Tasked FELT HAT FLANGING OPERATOR to send discharge paperwork and MAR to [facility]. Tasked her to arrange transportation via cot. Spoke with patient regarding transportation plan. Confirmed pickup time is 330. Discussed patient may have a co-pay for ambulance depending on their individual insurance coverage. Advised patient to call number on back of insurance card with questions or concerns. Updated bedside RN and community service director. Updated patient's sister per his request. [facility] 11-29-2024 Progress note Formatting of t his note might be different from the original. Care Management Progress Note Short Medical why still here: shaking/ tremors. 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 Nephrology and endocrinology following. Plan for hemodialysis today. Planned Discharge Disposition: Custodial Facility ([facility]) insurance auth approved for his return (he is also a bedhold). Barriers/Today we still Wait: Administering IV medications, Clinical stability, Symptomatic control Length of Stay (Days): 4 GMLOS: 4.6 operations manager assistant to follow for discharge planning. 2:07 PM UPDATE: DC order noted Tasked FELT HAT FLANGING OPERATOR to send discharge paperwork and MAR to [facility]. Tasked her to arrange transportation via cot. Spoke with patient regarding transportation plan. Confirmed pickup time is 330. Discussed patient may have a co-pay for ambulance depending on their individual insurance coverage. Advised patient to call number on back of insurance card with questions or concerns. Updated bedside RN and community service director. Updated patient's sister per his request. [facility] 11-28-2024 Consult note Associated Order (s): IP CONSULT TO NEUROLOGY NEUROLOGY INITIAL CONSULTATION DATE/TIME: NOVEMBER 282024 [] PATIENT's NAME: POLI Cartagena DATE OF : [birth year] AGE: 63 GENDER: Male ROOM: [facility]/A PHYSICIAN REQUESTING CONSULT: Dr. Hills NEUROLOGIST: Lauri Kilgore MD DATE OF ADMISSION: 11-25-24 REASON FOR NEUROLOGY CONSULTATION: Persistent tremors/twitching HISTORY OF PRESENT ILLNESS ED HISTORY OF PRESENT ILLINESS José Manuel Ashton is a 63-year-old man who was admitted to the Emergency Department at [facility] on 11-25-24 . He presented with [...] Ashton has experienced significant pain described as a lot of pain that is generalized and affects multiple areas [...] of the time and describes himself as always cold. The sensation of coldness is persistent and [...] neurological intervention is needed at this time. REST ROOM ATTENDANT During this comprehensive evaluation, I dedicated a significant amount of time, 75 minutes, to thoroughly reviewing all current medical records and relevant diagnostic tests. This thoroughness was essential for me to engage in a [id number]-ge-dplj interview and conduct a focused neurological examination, [...] 's approval, I created this report using [employer] recognition system, Friend Trusted, and [employer]-aerial applicator pilot. I conducted an accurate and prompt teaseler and a thorough editorial review. Acknowledging that [...] and cooperation. Lauri Kilgore MD Comprehensive Neurologist [phone] [employer] Phone: 11-28-2024 Consult note Associated Order (s): [...] was admitted to the Emergency Department at [facility] on 11-25-24 . He presented with [...] Ashton has experienced significant pain described as a lot of pain that is generalized and affects multiple areas [...] of the time and describes himself as always cold. The sensation of coldness is persistent and [...] neurological intervention is needed at this time. REST ROOM ATTENDANT During this comprehensive evaluation, I dedicated a significant amount of time, 75 minutes, to thoroughly reviewing all current medical records and relevant diagnostic tests. This thoroughness was essential for me to engage in a ievz-cg-cgpt interview and conduct a focused neurological examination, [...] 's approval, I created this report using [employer] voice recognition system, Bob Jurado, and [employer]-aerial applicator pilot. I conducted an accurate and prompt teaseler and a thorough editorial review. Acknowledging that [...] and cooperation. Lauri Kilgore MD Comprehensive Neurologist [phone] Associated Order(s): IP CONSULT TO NEPHROLOGY [facility] Consultation Note Reason for [...] HD M-. Facility staff noticed he was not acting like himself. CXR on admission was unremarkable, Nephrology is consulted for evaluation and management of ESRD and hemodialysis. Patient follows with Dr. Dudley at [facility]. He receives HD at his facility M-F [...] kg (250 lb) Height: 1.778 m (5' 10) 24 HR INTAKE/OUTPUT: Intake/Output Summary (Last 24 [...] CALCIUM 9.0 11/26/2024 No results found for: APPEARANCE, COLORU, LABSPEC, LABPH, URINE, GLUCOSEU, UROBILINOGEN, BILIRUBINUR, OCBU Assessment 63 y.o. male with ESRD N18.6 HTN in CKD I12.9 Anemia in CKD D63.1 T2DM in CKD E11.22 Lethargy R53.83 Dependence on hemodialysis RECOMMENDATIONS: - Will plan for HD tomorrow. HD schedule M-, last session was yesterday 11/25. I was able to get in contact with his dialysis nurse at [facility] and she confirmed his DW had recently [...] concerns regarding my recommendations as outlined above. [facility] [1] No family history on file. [2] Social History Socioeconomic History Marital status: Single Social Drivers of Health Financial Resource Strain: Medium Risk (05/24/2023) Received from [facility] Overall Financial Resource Strain (CARDIA) Difficulty of [...] Physical Activity: Insufficiently Active (12/28/2021) Received from [facility] Exercise Vital Sign Days of Exercise per Week: 7 days Minutes of Exercise per Session: 20 min Stress: Stress Concern Present (12/28/2021) Received from [facility] [place] of Occupational Health - Occupational Stress Questionnaire Feeling of Stress : Very much Social Connections: Socially Isolated (12/28/2021) Received from [facility] Social Connection and Isolation Panel [NHANES] Frequency of Communication with Friends and Family: Once a week Frequency of Social Gatherings with Friends and Family: Never Attends Confucianist Services: Never Active Member of Clubs or [...] the above assessment and plan with the ASSOCIATE SOFTWARE DEVELOPER. I agree with above note. HD tomorrow. [...] Dr. Hills PCP: Brittaney Garcia MD Outpt High School Sports Coach: Yes [facility] ASSESSMENT: Type 2 diabetes mellitus with hyperglycemia, with longwall foreman insulin use PLAN: Start Lantus 10 units [...] medium dose sliding scale Outpt Follow Up-- [facility] Endocrinology SUBJECTIVE/HPI: CHIEF COMPLAINT: Chief Complaint Patient presents with Altered Mental Status Pt presents to ED via EMS from [facility] for responding slowly and indicates he is cold. José Manuel Ashton is a 63 yo male who presented to ED from [facility] Dialysis center with Tremor, chills and delayed [...] in bed Patient reports he resides at [facility] Patient not sure of insulin doses at [facility] - Does not give his own injections. Reports blood sugars are checked before meals but not sure what blood sugar levels are. Carb controlled diet Patient reports tremors, chills Feels unsteady on feet. PT was stopped at SNF per patient. Glucose Date/Time Value Ref Range [...] CALCIUM 9.0 11/26/2024 No results found for: CHLPL, CHOL No results found for: TRIG No results found for: HDL No results found for: LDLCALC No results found for: VLDL No results found for: CHOLHDLRATIO No results found for: SSLX25DDB No results found for: TSH, T7OJNZP, K7DJDYY, THYROIDAB Radiology reportsas per the Radiologist Radiology: POCT glucose meter Result Date: 11/25/2024 Performed by: Felicita Daly [address] [place] [id number] CLIA ID: [id number] POCT glucose meter Result Date: 11/25/2024 Performed by: Felicita Daly [address] [place] [id number] CLIA ID: [id number] POCT glucose meter Result Date: 11/25/2024 Performed by: Felicita Daly [address] [place] [id number] CLIA ID: [id number] ECG 12 lead Sinus rhythm Low voltage, [...] Patient Name: JOSÉ MANUEL ASHTON [facility] 1960 [id number] Exam Date/Time: 11/25/2024 12:25 Procedure: XR CHEST [...] as of this encounter: 1.778 m (5' 10). Weight as of this encounter: 113 kg (250 lb). Lab Results Component Value Date CREATININE 5.14 (H) 11/25/2024 CREATININE 1.69 (H) 10/01/2023 BUN 49 (H) 11/25/2024 BUN 33 (H) 10/01/2023 WBC 6.9 11/25/2024 WBC 14.8 (H) 10/01/2023 Renal: []HD []CRRT []PD [x] CrCl 22.9 ml/min (if TARYN, no PEDIGREE RESEARCHER) Consulted By: Dr. Adames Vancomycin Level: []Trough [...] 2:57 PM Analilia Solares PharmD (available on [employer]) documented in this encounter [facility] 11-28-2024 Note NEUROLOGY INITIAL CO NSULTATION DATE/TIME: NOVEMBER 282024 [] PATIENT's NAME: POLI Cartagena DATE OF : [birth year] AGE: 63 GENDER: Male ROOM: [facility]/A PHYSICIAN REQUESTING CONSULT: Dr. Hills NEUROLOGIST: Lauri Kilgore MD DATE OF ADMISSION: 11-25-24 REASON FOR NEUROLOGY CONSULTATION: Persistent tremors/twitching HISTORY OF PRESENT ILLNESS ED HISTORY OF PRESENT ILLINESS José Manuel Ashton is a 63-year-old man who was admitted to the Emergency Department at [facility] on 11-25-24 . He presented with [...] Ashton has experienced significant pain described as a lot of pain that is generalized and affects multiple areas [...] of the time and describes himself as always cold. 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 [facility] 11-28-2024 Note [facility] Progress Note [...] 96% 96% Weight: Height: 1.778 m (5' 10) 24HR INTAKE/OUTPUT: Intake/Output Summary (Last 24 hours) [...] to call with any questions or concerns. [facility] This note is [...] OR ondansetron, oxyCODONE, polyethylene glycol (PEG) 3350 [facility] 11-28-2024 Progress note Formatting of t his note might be different from the original. Sent updated notes to return back to [facility] [place] via [employer] per [facility] request. Await review and response regarding ability to accept. [facility] notified. [facility] 11-28-2024 Note Hospitalist Progress Note 11/28/2024 Subjective: Admit Date: 11/25/2024 PCP: Brittaney Garcia MD Room#: F8-726/J9-571 A Interval History: No cp, sob, cough, [...] 11 11 10 LIVER PROFILE: Recent Labs 11/26/2445611/27/24 0339 11/28/24 0641 AST 21 17 28 ALT 14 16 34 BILITOT 0.4 0.4 0.4 ALKPHOS 95 94 111 PROT 6.4 6.2* 6.1* PT/INR: No results for input(s): PROTIME, INR in the last 72 hours. CARDIAC ENZYMES: No results for input(s): TROPONINI in the last 72 hours. Procalcitonin: Lab Results Component Value Date PROCAL 0.30 (H) 11/26/2024 COVID-19 PCR: No results for input(s): COVID19 in the last 72 hours. Objective: Vitals: BP 129/66 (BP Location: Left arm, Patient Position: Sitting) Pulse 86 Temp 36.2 ?C (97.1 ?F) (Temporal) Resp 17 Ht 5' 10 (1.778 m) Wt 265 lb 8 oz [...] Janell Waldrop Mobile Relation: Sister Preferred language: Zimbabwean Slot Machine Department Floorperson needed? 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 [facility] 11-28-2024 Note Pharmacy Managed Van comycin Dosing Service Progress Note Consult Date: 11/28/24 Patient Name: José Manuel Ashton Allergies: Penicillins Age: 63 y.o. Sex: male Ht: Height: 177.8 cm (5' 10) TBW: Weight: 120 kg (265 lb 8 oz) BMI: Body mass index is 38.1 kg/m?. Lab Results Component Value Date CREATININE 4.87 (H) 11/28/2024 CREATININE 6.86 (H) 11/27/2024 BUN 43 (H) 11/28/2024 BUN 67 (H) 11/27/2024 WBC 5.1 11/28/2024 WBC 5.0 11/27/2024 Renal: [x]HD []CRRT []PD [] CrCl ml/min (if TARYN, no PEDIGREE RESEARCHER) Infectious Diagnosis: sepsis (target level = 15-20 [...] 9:13 AM Leida Harris RPh (available on Spinal Integrationu) [facility] 11-28-2024 Note Care Management Prog ress Note Short Medical why still here: persistent tremors/ shaking. Awaiting neuro consult. On IV vancomycin. Hemodialysis on Monday. Planned Discharge Disposition: Custodial Facility ([facility], bedhold but request precert) Barriers/Today we still Wait: Administering IV medications, Clinical stability, Symptomatic control, Store Sales Leader recommendations (comment) Length of Stay (Days): 3 GMLOS: 3.7 operations manager assistant to follow for discharge planning. [facility] 11-28-2024 Progress note Formatting of t his note might be different from the original. Care Management Progress Note Short Medical why still here: persistent tremors/ shaking. Awaiting neuro consult. On IV vancomycin. Hemodialysis on Monday. Planned Discharge Disposition: Custodial Facility ([facility], bedhold but request precert) Barriers/Today we still Wait: Administering IV medications, Clinical stability, Symptomatic control, Store Sales Leader recommendations (comment) Length of Stay (Days): 3 GMLOS: 3.7 operations manager assistant to follow for discharge planning. [facility] 11-27-2024 Nurse Note Patient Name: José Manuel Ashton Patient : 1960 Acct: [id number] Date of Admission: 11/25/2024 Room[facility]: [facility] A Code Status: Full Code Allergies: Allergies[1] [...] (0) 4 Regular None (Room air) Diminished [place] Warm;Dry -- -- -- Labs Lab Results [...] - Before each treatment: Dialysis Machine No.: [id number] RO Machine Number: [id number] Dialyzer Lot No.: [id number] Tubing Lot Number: [id number] All Connections Secure: Yes Venous Parameters Set: Yes Arterial Parameters Set: Yes NS Bag: Yes Saline Line Double Clamped: Yes Dialyzer: Nipro Prime Volume (mL): 200 mL RO Machine Number: [id number] RO Machine Log Sheet Completed: Yes Conductivity Meter Serial #: [id number] Machine Functioning Alarm Free? Yes Dialysis Bath: Chlorine Testing - Before each treatment and every 4 hours: Weight Height: 177.8 cm (5' 10) (11/26/24 1501) Weight: 113 kg (250 lb) [...] Active Problem List Diagnosis Chills [3] T [facility] 11-27-2024 Note Referral placed to r eturn back to [facility] via [facility] per TCC request. Await review and response regarding ability to accept. TCC notified. [facility] 11-27-2024 Progress note Formatting of t his note might be different from the original. Referral placed to return back to [facility] via [facility] per TCC request. Await review and response regarding ability to accept. TCC notified. T [facility] 11-27-2024 Progress note Formatting of t his note might be different from the original. Care Managment Initial Assessment Date: 11/27/2024 Patient Name: José Manuel Ashton : 1960 Patient Information Source of Information: Patient Cognition/Language: WFL - Within Functional Limits Permission given to speak with patient hospital sales representative/caregiver as indicated: Confirmation of Payer with patient/family: Yes Payer Name: [employer] MEDICARE/[facility] DUAL COMPLETE [place]: No Confirmation of Primary Care Physician: Primary Caregiver: If assistance needed, confirmed caregiver ready, willing and able to care for patient at discharge: Confirmed with: Living Arrangements Current Residence: Number of Floors Number of Entry Steps: Bed/Bath Levels: Facility: Nursing Facility Skilled Facility Name: [facility] Plan to Return: Yes Lives [...] Services: Dialysis Type: Hemo Dialysis Provider Name/Location: [facility] M-F Durable Medical Equipment: Wheelchair (standard or power), Cane Patient's Goal/Discharge Plan Patient expects to be discharged to: [facility] Discharge Planning Actions: Continue to follow, Custodial Facility referral indicated Patient's Choice Rights and [employer] and Collaborative Relationships Disclosed as Indicated for Post-Acute Care: NA Interdisciplinary Team Engagement: Social Work Referral for: Additional Information: Spoke with patient at their bedside. Introduced self and role. Discussed discharge planning. Patient has health insurance and prescription coverage. Patient states he lives at [facility] and plans to return. Tasked FELT HAT FLANGING OPERATOR to send referral in [facility]. Will await response. He receives hemodialysis there Monday through Monday. He will need ambulance transport with cot upon discharge. follow up manager will continue to follow for any discharge planning needs. 2:46 PM UPDATE: Patient is a bedhold at [facility]. They would like to skill him for his return but he may return regardless when medically ready. They are submitting precert today. [facility] 11-27-2024 Note Pharmacy Managed Van comycin Dosing Service Progress Note Consult Date: 11/27/24 Patient Name: José Manuel Ashton Allergies: Penicillins Age: 63 y.o. Sex: male Ht: Height: 177.8 cm (5' 10) TBW: Weight: 113 kg (250 lb) BMI: Body mass index is 35.87 kg/m?. Lab Results Component Value Date CREATININE 6.86 (H) 11/27/2024 CREATININE 5.70 (H) 11/26/2024 BUN 67 (H) 11/27/2024 BUN 56 (H) 11/26/2024 WBC 5.0 11/27/2024 WBC 6.9 11/25/2024 Renal: [x]HD []CRRT []PD [] CrCl ml/min (if TARYN, no PEDIGREE RESEARCHER) Infectious Diagnosis: sepsis (target level = 15-20 [...] Date: 11/27/24 Time: 1:51 PM Leida Harris [facility] (available on [employer]) [facility] 11-27-2024 Note Hospitalist Progress Note 11/27/2024 Subjective: Admit Date: 11/25/2024 PCP: Brittaney Garcia MD Room#: B4-326/B4-428 A Interval History: Having arm twitching and [...] 6.4 6.2* PT/INR: No results for input(s): PROTIME, INR in the last 72 hours. CARDIAC ENZYMES: No results for input(s): TROPONINI in the last 72 hours. Procalcitonin: Lab Results Component Value Date PROCAL 0.30 (H) 11/26/2024 COVID-19 PCR: No results for input(s): COVID19 in the last 72 hours. Objective: Vitals: BP 150/88 (BP Location: Right arm, Patient Position: Sitting) Pulse 90 Temp (!) 35.9 ?C (96.7 ?F) (Temporal) Resp 18 Ht 5' 10 (1.778 m) Wt 250 lb (113 kg) [...] Janell Waldrop Mobile Relation: Sister Preferred language: [place]an Slot Machine Department Floorperson needed? No Flori Hills MD Division of [...] 2 diabetes mellitus (more content not included)... [facility] 11-27-2024 Progress note Formatting of t his note might be different from the original. SW call to [employer] coverage line. Per [facility] coverage line, he was denied Assisted Living due to alf fdc care placement at [facility]. TCC notified. [facility] 11-27-2024 Note Care Management Prog ress Note Short Medical why still here: admitted for chills, received one dose of vancomycin. Blood cultures pending. Monitoring renal labs. On hemodialysis M-F at intermediate facility. Nephrology and endocrinology following. Planned Discharge Disposition: Custodial Facility (patient came from [facility], anticipate return but will confirm with patient and facility) Barriers/Today we still Wait: Administering IV medications, Clinical stability, Symptomatic control, Store Sales Leader recommendations (comment) Length of Stay (Days): 2 GMLOS: No GMLOS Documented [facility] 11-27-2024 Progress note Formatting of t his note might be different from the original. Care Management Progress Note Short Medical why still here: admitted for chills, received one dose of vancomycin. Blood cultures pending. Monitoring renal labs. On hemodialysis M-F at intermediate facility. Nephrology and endocrinology following. Planned Discharge Disposition: Custodial Facility (patient came from [facility], anticipate return but will confirm with patient and facility) Barriers/Today we still Wait: Administering IV medications, Clinical stability, Symptomatic control, Store Sales Leader recommendations (comment) Length of Stay (Days): 2 GMLOS: No GMLOS Documented T [facility] 11-26-2024 Consult note Associated Order (s): IP CONSULT TO NEPHROLOGY [facility] Nephrology Consultation Note Reason for [...] HD -. Facility staff noticed he was not acting like himself. CXR on admission was unremarkable, Nephrology is consulted for evaluation and management of ESRD and hemodialysis. Patient follows with Dr. Dudley at [facility]. He receives HD at his facility M- to a DW of 115 kg. Last [...] kg (250 lb) Height: 1.778 m (5' 10) 24 HR INTAKE/OUTPUT: Intake/Output Summary (Last 24 [...] CALCIUM 9.0 11/26/2024 No results found for: APPEARANCE, COLORU, LABSPEC, LABPH, URINE, GLUCOSEU, UROBILINOGEN, BILIRUBINUR, OCBU Assessment 63 y.o. male with ESRD N18.6 HTN in CKD I12.9 Anemia in CKD D63.1 T2DM in CKD E11.22 Lethargy R53.83 Dependence on hemodialysis RECOMMENDATIONS: - Will plan for HD tomorrow. HD schedule -, last session was yesterday 11/25. I was able to get in contact with his dialysis nurse at [facility] and she confirmed his DW had recently [...] concerns regarding my recommendations as outlined above. [facility] [1] No family history on file. [2] Social History Socioeconomic History Marital status: Single Social Drivers of Health Financial Resource Strain: Medium Risk (05/24/2023) Received from [facility] Overall Financial Resource Strain (CARDIA) Difficulty of [...] Physical Activity: Insufficiently Active (12/28/2021) Received from [facility] Exercise Vital Sign Days of Exercise per Week: 7 days Minutes of Exercise per Session: 20 min Stress: Stress Concern Present (12/28/2021) Received from [facility] [place] of Occupational Health - Occupational Stress Questionnaire Feeling of Stress : Very much Social Connections: Socially Isolated (12/28/2021) Received from [facility] Social Connection and Isolation Panel [NHANES] Frequency of Communication with Friends and Family: Once a week Frequency of Social Gatherings with Friends and Family: Never Attends Confucianist Services: Never Active Member of Clubs or [...] the above assessment and plan with the ASSOCIATE SOFTWARE DEVELOPER. I agree with above note. HD tomorrow. Patient established with Dr Abiel Dudley outpatient. We cover his patients here. [facility] 11-26-2024 Note PHYSICAL THERAPY [facility] Initial Evaluation Name/MRN: José Manuel Ashton ([id number]) Evaluation Date: 11/26/2024 Date of : 1960 Admission Date: 11/25/2024 12:06 PM Age: 63 y.o. Room/Bed: B4-466/B4-466 A Discharge Recommendation: Custodial Facility Equipment Needed: No Assessment IMPRESSION: Pt [...] Raw Score (No Stairs) : 11 [facility] Score: Static standing (1 or more minutes) [...] to improve stren (more content not included)... [facility] 11-26-2024 Note Pharmacy Managed Van comycin Dosing Service Progress Note Consult Date: 11/26/24 Patient Name: José Manuel Ashton Allergies: Penicillins Age: 63 y.o. Sex: male Ht: Height: 177.8 cm (5' 10) TBW: Weight: 113 kg (250 lb) BMI: [...] dosing (Pulse Dosing). No results found for: VANCDULCENDOM Change to Pulse dosing and give Vancomycin 750 mg x1 today based on patient age, weight, renal status and infectious diagnosis. Will adjust dose/frequency if needed according to level. (Will schedule next level once HD schedule known) Follow renal status closely. Orders placed. Thank you for this consult. Please page/call with questions. Date: 11/26/24 Time: 1:20 PM Prasanth Springer [facility] (available on [employer]) [facility] 11-26-2024 Note OCCUPATIONAL THERAPY [facility] Initial Evaluation Name/MRN: José Manuel Ashton ([id number]) Evaluation Date: 11/26/2024 Date of : 1960 Admission Date: 11/25/2024 12:06 PM Age: 63 y.o. Room/Bed: Discharge Recommendation: Custodial Facility Equipment Needed: No Assessment IMPRESSION: Pt [...] functional mobility. Recommend return to SNF at [facility] with OT. Admitting Diagnosis: chills Performance Deficits [...] Problems Encounter Prob (more content not included)... [facility] 11-26-2024 Note Hospitalist Progress Note 11/26/2024 [...] 6.9 6.4 PT/INR: No results for input(s): PROTIME, INR in the last 72 hours. CARDIAC ENZYMES: No results for input(s): TROPONINI in the last 72 hours. Procalcitonin: Lab Results Component Value Date PROCAL 0.30 (H) 11/26/2024 COVID-19 PCR: No results for input(s): COVID19 in the last 72 hours. Objective: Vitals: BP 137/56 (BP Location: Right arm) Pulse 82 Temp 36.5 ?C (97.7 ?F) (Oral) Resp 18 Ht 5' 10 (1.778 m) Wt 250 lb (113 kg) [...] Janell Waldrop Mobile Relation: Sister Preferred language: [place] Slot Machine Department Floorperson needed? No Flori Hills MD Division of Hospitalist Medicine [facility] [1] Past Medical History: Diagnosis Date Anemia [...] Once vancomycin (Vancoci (more content not included)... [facility] 11-26-2024 Consult note Associated Order (s): IP CONSULT TO ENDOCRINOLOGY Department of Internal Medicine Division of Endocrinology, Diabetes, & Metabolism Endocrinology Note Patient Name: José Manuel Ashton : 1960 AGE: 63 y.o. Room/Bed: Admission Date: 11/25/2024 Visit Date: 11/26/2024 Reason for Endocrine Consult: DM/Pt on U300 insulin Provider/Team Requesting Consult: Dr. 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 José Manuel Ashton is a 63 yo male who presented to ED from [facility] Dialysis center with Tremor, chills and delayed [...] in bed Patient reports he resides at [facility] Patient not sure of insulin doses at [facility] - Does not give his own injections. Reports blood sugars are checked before meals but not sure what blood sugar levels are. Carb controlled diet Patient reports tremors, chills Feels unsteady on feet. PT was stopped at [facility] per patient. Glucose Date/Time Value Ref Range [...] CALCIUM 9.0 11/26/2024 No results found for: CHLPL, CHOL No results found for: TRIG No results found for: HDL No results found for: LDLCALC No results found for: VLDL No results found for: CHOLHDLRATIO No results found for: [id number] No results found for: TSH, L9GTOSL, U3ULODX, THYROIDAB Radiology reportsas per the Radiologist Radiology: POCT glucose meter Result Date: 11/25/2024 Performed by: Felicita Daly[address] [address] CLIA ID: [id number] POCT glucose meter Result Date: 11/25/2024 Performed by: Felicita Daly[address] [address] CLIA ID: [id number] POCT glucose meter Result Date: 11/25/2024 Performed by: Felicita Daly, [address] [place] [id number] CLIA ID: [id number] ECG 12 lead Sinus rhythm Low voltage, [...] Hatch MD at 11/27/2024 11:51 AM EDT [facility] 11-25-2024 History and physical note Attending History and Physical Admit Date: 11/25/2024 PCP: Brittaney Garica MD CHIEF COMPLAINT: weakness, chills, lethargy Reason [...] n/v, f/c. He normally is admitted to [facility]. Will admit for further evaluation and management. [...] Resource Strain: Medium Risk (05/24/2023) Received from [facility] Overall Financial Resource Strain (CARDIA) Difficulty of Paying Living Expenses: Somewhat hard Food Insecurity: No Food Insecurity (07/11/2024) Received from [facility] Hunger Vital Sign Worried About Running Out of Food in the Last Year: Never true Ran Out of Food in the Last Year: Never true Transportation Needs: No Transportation Needs (07/11/2024) Received from [facility] PRAPARE - Transportation Lack of Transportation (Medical): No Lack of Transportation (Non-Medical): No Physical Activity: Insufficiently Active (12/28/2021) Received from [facility] Exercise Vital Sign Days of Exercise per Week: 7 days Minutes of Exercise per Session: 20 min Stress: Stress Concern Present (12/28/2021) Received from [facility] [place] of Occupational Health - Occupational Stress Questionnaire Feeling of Stress : Very much Social Connections: Socially Isolated (12/28/2021) Received from [facility] Social Connection and Isolation Panel [NHANES] Frequency of Communication with Friends and Family: Once a week Frequency of Social Gatherings with Friends and Family: Never Attends Confucianist Services: Never Active Member of Clubs or Organizations: Yes Attends Club or Organization Meetings: Never Marital Status: Never Intimate Partner Violence: Not on file Housing Stability: Unknown (07/11/2024) Received from [facility] Housing Stability Vital Sign Unable to Pay [...] (97.5 F) (Oral) Resp 17 Ht 5' 10 (1.778 m) Wt 250 lb (113 kg) [...] PROT 6.9 PT/INR: No results for input(s): PROTIME, INR in the last 72 hours. CARDIAC ENZYMES: No results for input(s): TROPONINI in the last 72 hours. Procalcitonin: No results found for: PROCAL Urine Culture: No results found for this or any previous visit. COVID-19 PCR: No results for input(s): COVID19 in the last 72 hours. I reviewed: [...] Janell Waldrop Mobile Relation: Sister Preferred language: [place] Slot Machine Department Floorperson needed? No Flori Hills MD Division of Hospitalist Medicine [facility] [1] No family history on file. [2] [...] on file. [3] Allergies Allergen Reactions Penicillins [facility] 11-25-2024 Note Attending History an d Physical [...] n/v, f/c. He normally is admitted to [facility]. Will admit for further evaluation and management. [...] Resource Strain: Medium Risk (05/24/2023) Received from [facility] Overall Financial Resource Strain (CARDIA) Difficulty of Paying Living Expenses: Somewhat hard Food Insecurity: No Food Insecurity (07/11/2024) Received from [facility] Hunger Vital Sign Worried About Running Out of Food in the Last Year: Never true Ran Out of Food in the Last Year: Never true Transportation Needs: No Transportation Needs (07/11/2024) Received from [facility] PRAPARE - Transportation Lack of Transportation (Medical): No Lack of Transportation (Non-Medical): No Physical Activity: Insufficiently Active (12/28/2021) Received from [facility] Exercise Vital Sign Days of Exercise per Week: 7 days Minutes of Exercise per Session: 20 min Stress: Stress Concern Present (12/28/2021) Received from [facility] [place] of Occupational Health - Occupational Stress Questionnaire Feeling of Stress : Very much Social Connections: Socially Isolated (12/28/2021) Received from [facility] Social Connection and Isolation Panel [NHANES] Frequency of Communication with Friends and Family: Once a week Frequency of Social Gatherings with Friends and Family: Never Attends Confucianist Services: Never Active Member of Clubs or Organizations: Yes Attends Club or Organization Meetings: Never Marital Status: Never Intimate Partner Violence: Not on file Housing Stability: Unknown (07/11/2024) Received from [facility] Housing Stability Vital Sign Unable to Pay [...] (97.5 ?F) (Oral) Resp 17 Ht 5' 10 (1.778 m) Wt 250 lb (113 kg) [...] PLT 220 BMP: (more content not included)... [facility] 11-25-2024 History and physical note Attending [...] n/v, f/c. He normally is admitted to [facility]. Will admit for further evaluation and management. [...] Resource Strain: Medium Risk (05/24/2023) Received from [facility] Overall Financial Resource Strain (CARDIA) Difficulty of Paying Living Expenses: Somewhat hard Food Insecurity: No Food Insecurity (07/11/2024) Received from [facility] Hunger Vital Sign Worried About Running Out of Food in the Last Year: Never true Ran Out of Food in the Last Year: Never true Transportation Needs: No Transportation Needs (07/11/2024) Received from [facility] PRAPARE - Transportation Lack of Transportation (Medical): No Lack of Transportation (Non-Medical): No Physical Activity: Insufficiently Active (12/28/2021) Received from [facility] Exercise Vital Sign Days of Exercise per Week: 7 days Minutes of Exercise per Session: 20 min Stress: Stress Concern Present (12/28/2021) Received from [facility] [place] of Occupational Health - Occupational Stress Questionnaire Feeling of Stress : Very much Social Connections: Socially Isolated (12/28/2021) Received from [facility] Social Connection and Isolation Panel [NHANES] Frequency of Communication with Friends and Family: Once a week Frequency of Social Gatherings with Friends and Family: Never Attends Confucianist Services: Never Active Member of Clubs or Organizations: Yes Attends Club or Organization Meetings: Never Marital Status: Never Intimate Partner Violence: Not on file Housing Stability: Unknown (07/11/2024) Received from [facility] Housing Stability Vital Sign Unable to Pay [...] (97.5 F) (Oral) Resp 17 Ht 5' 10 (1.778 m) Wt 250 lb (113 kg) [...] PROT 6.9 PT/INR: No results for input(s): PROTIME, INR in the last 72 hours. CARDIAC ENZYMES: No results for input(s): TROPONINI in the last 72 hours. Procalcitonin: No results found for: PROCAL Urine Culture: No results found for this or any previous visit. COVID-19 PCR: No results for input(s): COVID19 in the last 72 hours. I reviewed: [...] Janell Waldrop Mobile Relation: Sister Preferred language: [place] Slot Machine Department Floorperson needed? No Flori Hills MD Division of Hospitalist Medicine [facility] [1] No family history on file. [2] Current Facility-Administered Medications: oxyCODONE-acetaminophen (Percocet) 5-325 MG per tablet 1 tablet, 1 tablet, Oral, Once, Omid Adames MD vancomycin (Vancocin) 2500 mg in 0.9% sodium chloride 500 mL IVPB (compounded premix), 2,500 mg, IntraVENous, Once, Oimd Adames MD, Last Rate: 166.7 mL/hr at 11/25/24 1439, 2,500 mg at 11/25/24 1439 [START ON 11/26/2024] vancomycin (Vancocin) 500 mg in sodium chloride 0.9 % 100 mL IVPB, 500 mg, IntraVENous, q24h, Omid Adames MD No current outpatient medications on file. [3] Allergies Allergen Reactions Penicillins documented in this encounter [facility] 11-25-2024 Consult note Formatting of th is note is different from the original. Images from the original note were not included. Pharmacy Managed Vancomycin Dosing Service Consult Note Consult Date: 11/25/24 Patient Name: José Manuel Ashton Allergies: Penicillins Age: 63 y.o. Sex: male Estimated body mass index is 35.87 kg/m as calculated from the following: Height as of this encounter: 1.778 m (5' 10). Weight as of this encounter: 113 kg (250 lb). Lab Results Component Value Date CREATININE 5.14 (H) 11/25/2024 CREATININE 1.69 (H) 10/01/2023 BUN 49 (H) 11/25/2024 BUN 33 (H) 10/01/2023 WBC 6.9 11/25/2024 WBC 14.8 (H) 10/01/2023 Renal: []HD []CRRT []PD [x] CrCl 22.9 ml/min (if TARYN, no PEDIGREE RESEARCHER) Consulted By: Dr. Adames Vancomycin Level: []Trough [...] 2:57 PM Analilia Solares PharmD (available on [employer]) [facility] 11-25-2024 Emergency department Note Pt refused pain meds, not my dose at [facility] per pt [facility] 11-25-2024 Emergency department Note Pt refused pain meds, not my dose at [facility] per pt EMERGENCY DEPARTMENT ENCOUNTER Pt Name: José Manuel Ashtno Birthdate 1960 Date of evaluation: 11/25/2024 ED Provider: Omid Adames MD CHIEF COMPLAINT Chief Complaint Patient presents with Altered Mental Status Pt presents to ED via EMS from [facility] for responding slowly and indicates he is [...] slow R wave progression versus old septal SD. There is no acute ST elevation or [...] In compliance with this authorization, please visit www.fda.gov/media/259519/download or www.fda.gov/media/981017/download to access the applicable information sheets. MAGNESIUM [...] kg (250 lb) Height: 1.778 m (5' 10) Diagnoses as of 11/25/24 1430 Chills Shakes [...] to that. I did message the on-call chemical strength tester who is comfortable with the plan. Hospitalist [...] Resource Strain: Medium Risk (05/24/2023) Received from [facility] Overall Financial Resource Strain (CARDIA) Difficulty of Paying Living Expenses: Somewhat hard Food Insecurity: No Food Insecurity (07/11/2024) Received from [facility] Hunger Vital Sign Worried About Running Out of Food in the Last Year: Never true Ran Out of Food in the Last Year: Never true Transportation Needs: No Transportation Needs (07/11/2024) Received from [facility] PRAPARE - Transportation Lack of Transportation (Medical): No Lack of Transportation (Non-Medical): No Physical Activity: Insufficiently Active (12/28/2021) Received from [facility] Exercise Vital Sign Days of Exercise per Week: 7 days Minutes of Exercise per Session: 20 min Stress: Stress Concern Present (12/28/2021) Received from [facility] [place] of Occupational Health - Occupational Stress Questionnaire Feeling of Stress : Very much Social Connections: Socially Isolated (12/28/2021) Received from [facility] Social Connection and Isolation Panel [NHANES] Frequency of Communication with Friends and Family: Once a week Frequency of Social Gatherings with Friends and Family: Never Attends Confucianist Services: Never Active Member of Clubs or Organizations: Yes Attends Club or Organization Meetings: Never Marital Status: Never Housing Stability: Unknown (07/11/2024) Received from [facility] Housing Stability Vital Sign Unable to Pay for Housing in the Last Year: No Homeless in the Last Year: No Omid Adames MD 11/25/24 1430 Pt received dialysis today documented in this encounter [facility] 11-25-2024 Emergency department Triage note Pt received dialysis today [facility] 11-25-2024 Physician Emergency department Note EMERGENCY DEPARTMENT ENCOUNTER Pt Name: José Manuel Ashton Birthdate 1960 Date of evaluation: 11/25/2024 ED Provider: Omdi Adames MD CHIEF COMPLAINT Chief Complaint Patient presents with Altered Mental Status Pt presents to ED via EMS from [facility] for responding slowly and indicates he is [...] slow R wave progression versus old septal SD. There is no acute ST elevation or [...] In compliance with this authorization, please visit www.fda.gov/media/424133/download or www.fda.gov/media/574915/download to access the applicable information sheets. MAGNESIUM [...] kg (250 lb) Height: 1.778 m (5' 10) Diagnoses as of 11/25/24 1430 Chills Shakes [...] to that. I did message the on-call chemical strength tester who is comfortable with the plan. Hospitalist [...] Resource Strain: Medium Risk (05/24/2023) Received from [facility] Overall Financial Resource Strain (CARDIA) Difficulty of Paying Living Expenses: Somewhat hard Food Insecurity: No Food Insecurity (07/11/2024) Received from [facility] Hunger Vital Sign Worried About Running Out of Food in the Last Year: Never true Ran Out of Food in the Last Year: Never true Transportation Needs: No Transportation Needs (07/11/2024) Received from [facility] PRAPARE - Transportation Lack of Transportation (Medical): No Lack of Transportation (Non-Medical): No Physical Activity: Insufficiently Active (12/28/2021) Received from [facility] Exercise Vital Sign Days of Exercise per Week: 7 days Minutes of Exercise per Session: 20 min Stress: Stress Concern Present (12/28/2021) Received from [facility] [place] [facility] [employer]ational Health - Occupational Stress Questionnaire Feeling of Stress : Very much Social Connections: Socially Isolated (12/28/2021) Received from [facility] Social Connection and Isolation Panel [NHANES] Frequency of Communication with Friends and Family: Once a week Frequency of Social Gatherings with Friends and Family: Never Attends Confucianist Services: Never Active Member of Clubs or Organizations: Yes Attends Club or Organization Meetings: Never Marital Status: Never Housing Stability: Unknown (07/11/2024) Received from [facility] Housing Stability Vital Sign Unable to Pay for Housing in the Last Year: No Homeless in the Last Year: No Omid Adames MD 11/25/24 1430 [facility] 07-24-2024 Telephone encounter Note Hi, Pt d/c to a SNF. Referral discarded. Thank you, Claudia Chow LPN [facility] Work Phone: 07-24-2024 Miscellaneous Notes Hi, Pt d/c to a SNF. Referral discarded. Thank you, Claudia Chow LPN documented in this encounter [facility] 07-23-2024 Note [facility] 07-22-2024 Note [facility] 07-22-2024 Note [facility] 07-21-2024 Note [facility] 07-20-2024 Note [facility] 07-20-2024 Note [facility] 07-20-2024 Note [facility] 07-19-2024 Note [facility] 07-19-2024 Note [facility] 07-18-2024 Note [facility] 07-17-2024 Note [facility] 07-16-2024 Note [facility] 07-15-2024 Note [facility] 07-14-2024 Note [facility] 07-13-2024 Note [facility] 07-12-2024 Note [facility] 07-12-2024 Telephone encounter Note Bunny Scott MD [...] care clinicians may also obtain orders from [facility] Virtualist Providers Thank you and we would be happy to answer any questions. Judith Cat LPN 07/12/2024 10:23 AM [facility] Work Phone: 07-12-2024 Miscellaneous Notes Bunny Scott [...] care clinicians may also obtain orders from [facility] Virtualist Providers Thank you and we would be happy to answer any questions. Judith Cat LPN 07/12/2024 10:23 AM documented in this encounter [facility] 07-10-2024 History of Present illness Narrative Chief complaint : Subjective : José Manuel Ashton is a 63 year old male seen for CKD follow up. SUBJECTIVE: José Manuel Ashton is a 63 year old White male with past medical history significant for : Type 2 diabetes, hypertension, hyperlipidemia, depression, colon to [facility] on 05/23/23 with polyp, lumbar radiculopathy, history [...] AUTOSHIELD DUO PEN NEEDLE) 30 gauge x 3/16 ndle 1 Applicator four times daily. No current facility-administered medications for this visit. Social History Tobacco Use Smoking status: Former Current packs/day: 0.00 Average packs/day: 1 pack/day for 37.0 years (37.0 ttl pk-yrs) Types: Cigarettes Start date: 04/03/1973 Quit date: 04/03/2010 Years since quittin.2 Smokeless tobacco: Never Tobacco comments: Smokes [place] Vaping Use Vaping status: Never Used Substance [...] (97.9 F) (Temporal) Ht 172.7 cm (5' 8) Wt 115.2 kg (254 lb) SpO2 98% [...] Review Reviewed by Sebas Ocampo MD, Ph.D ([id number]) Comment (Serum Prot Electro) A reflex test [...] 3,715.7 Albumin/Creat Ratio <30 mg/g 5,008 (H) [place] Free, Serum 3.3 - 19.4 mg/L 57.0 (H) Lambda Free, Serum 5.7 - 26.3 mg/L 36.1 (H) K/L Ratio, Serum 0.26 - 1.65 1.58 DNA Antibody <=200 IU/mL 16 DNA Antibody Qualitative Interpretation Negative Negative MPA Result No M protein is identified. No M protein is identified. Staff Review (MPA) Reviewed by Sebas Ocampo MD, Ph.D ([id number]) C3 86 - 166 mg/dL 147 C4 13 - 46 mg/dL 26 Phospholipase A2 Receptor, FABIENNE, S RU/mL <2 JAMARCUS Negative Negative Protein, Total 6.3 - 8.0 g/dL 6.0 (L) PLA2R. Immunofluorescence, S Negative Negative THSD7A Ab, S Negative Negative Lab work on 06/13/2023. Sodium 141 potassium 4.7 CO2 26 BUN 46 creatinine 2.17 glucose 158 calcium 8.6 GFR 33\ 04/26/24 : Cr 3.41 \ Work on 07/01/2024: Sodium 145 potassium 5.3 [...] months (on 10/09/2024). documented in this encounter [facility] 06-28-2024 Telephone encounter Note S: Patient spoke with [facility] nurse regarding abnormal labs results being called by the [facility]. Hx: DM B: Onset of symptoms/concern labs were drawn from the [facility] office at his appointment on 06/27/24 having an urgent notification at 15:54 was seen in the office for a 2-month follow up A: Bun 79.9 CR 4.3 Potassium 7.1 R: Paging Dr. Scott at 3:55 No further needs at this time. Reason for Disposition Lab or radiology calling with test results Protocols used: PCP Call - No [id number] [facility] 06-28-2024 Miscellaneous Notes S: Patient spoke with [facility] nurse regarding abnormal labs results being called by the [facility]. Hx: DM B: Onset of symptoms/concern labs were drawn from the [facility] at his appointment on 06/27/24 having an urgent notification at 15:54 was seen in the office for a 2-month follow up A: Bun 79.9 CR 4.3 Potassium 7.1 R: Paging Dr. Scott at 3:55 No further needs at this time. Reason for Disposition Lab or radiology calling with test results Protocols used: PCP Call - No [id number] documented in this encounter [facility] 05-20-2024 Telephone encounter Note Spoke to the patient's sister and relayed the message and she stated she would inform her brother because she takes all his calls. A 3 year Recall has been placed in [employer]. Brittany Roberson [facility] 05-20-2024 Telephone encounter Note ----- Message from Artem Ahmadi MD sent at 05/16/2024 8:39 AM EST ----- His pathology results are back and show a number of small polyps and we should plan for next colonoscopy in 3 years. Artem Ahmadi MD May 16, 2024 8:39 AM [facility] 05-20-2024 Miscellaneous Notes Spoke to the patient's sister and relayed the message and she stated she would inform her brother because she takes all his calls. A 3 year Recall has been placed in [facility]. Brittany Roberson ----- Message from Artem Ahmadi [...] 2024 8:39 AM documented in this encounter [facility] 05-16-2024 Progress note Formatting of t his note might be different from the original. His pathology results are back and show a number of small polyps and we should plan for next colonoscopy in 3 years. Artem Ahmadi MD May 16, 2024 8:39 AM [facility] Work Phone: 05-14-2024 Telephone encounter Note A 3 year Recall has been placed in [facility]. Called the patient and left him a voice message that a 3 Year Recall has been placed and he will receive a letter to call to schedule when he is due. Brittany Roberson [facility] 05-14-2024 Miscellaneous Notes A 3 year Recall has been placed in [facility]. Called the patient and left him a voice message that a 3 Year Recall has been placed and he will receive a letter to call to schedule when he is due. Brittany Roberson documented in this encounter [facility] 05-13-2024 Hospital Discharge instructions Artem Ahmadi MD [...] hours. Eat high-fiber foods or use an [id number]-bmhucae fiber supplement, if needed. Rest and avoid [...] are getting worse. documented in this encounter [facility] 05-13-2024 History and physical note [...] quittin.1 Smokeless tobacco: Never Tobacco comments: Smokes [place] Vaping Use Vaping status: Never Used Substance [...] AUTOSHIELD DUO PEN NEEDLE) 30 gauge x 3/16 ndle 1 Applicator four times daily. senna (SENOKOT) 8.6 mg tab Take 1 tablet by mouth once daily. Medication Comments documented by Simeon Hinds RN on 11/15/2023 at 1415. SEE EMAR FOR MEDICATIONS TAKEN LAST 04/19/21 07/31/20 The medications are managed by this patient by: PATIENT Nusrat Lewis, OA 11/08/[address] Scott: Patient to continue to use the SSI only, no regular scheduled Insulin dosing at this time. Patient's sister has been notified and verbalizes understanding. Richard Hinds RN ALLERGIES Allergen Reactions Penicillins [...] Denies dizziness and headaches. Respiratory: Denies SOB. +MEHKI Cardiovascular: Denies CP and palpitations. +HLD +HTN [...] was a heavier drinking when he was younger. Denies any recent use of alcohol. Nicotine [...] which included preparing to see the patient, rjty-bw-[id number] patient care, completing clinical documentation, obtaining and/or reviewing separately obtained history, and performing a medically appropriate examination. Instructions Given to Patient: Patient given verbal preop instructions and voices comprehension and compliance. SIGNATURE: Rebecca Corey APRN.CNP PATIENT NAME: José Manuel Ashton DATE: May 13, 2024 TIME: 10:56 AM PAGER/CONTACT #: [facility] 05-13-2024 History and [...] quittin.1 Smokeless tobacco: Never Tobacco comments: Smokes [place] Vaping Use Vaping status: Never Used Substance [...] AUTOSHIELD DUO PEN NEEDLE) 30 gauge x 3/16 ndle 1 Applicator four times daily. senna (SENOKOT) 8.6 mg tab Take 1 tablet by mouth once daily. Medication Comments documented by Simeon Hinds RN on 11/15/2023 at 1415. SEE EMAR FOR MEDICATIONS TAKEN LAST 04/19/21 07/31/20 The medications are managed by this patient by: PATIENT Nusrat Lewis, OA 11/08/[address] Scott: Patient to continue to use the SSI only, no regular scheduled Insulin dosing at this time. Patient's sister has been notified and verbalizes understanding. Richard Hinds RN ALLERGIES Allergen Reactions Penicillins [...] was a heavier drinking when he was younger. Denies any recent use of alcohol. Nicotine [...] which included preparing to see the patient, [id number]-ghvq patient care, completing clinical documentation, obtaining and/or reviewing separately obtained history, and performing a medically appropriate examination. Instructions Given to Patient: Patient given verbal preop instructions and voices comprehension and compliance. SIGNATURE: Rebecca Corey APRN.CNP PATIENT NAME: José Manuel Ashton DATE: May 13, 2024 TIME: 10:56 AM PAGER/CONTACT #: documented in this encounter [facility] 04-27-2024 Telephone encounter Note S: Patient's sister (Janell) spoke with [facility] nurse regarding medication problem / prior [...] doesn't require PA. Per Dr. Scott - I'll call the pharmacy Return call back to [facility] with an update. Recommend calling the pharmacy in 1 hour to see if medication is ready. Any issues, please give the office a call back. Sister verbalizes understanding. Reason for Disposition [1] Caller has URGENT medicine question about med that PCP or specialist prescribed AND [2] triager unable to answer question Protocols used: Medication Question [id number] [facility] 04-27-2024 Miscellaneous Notes S: Patient's sister (Janell) spoke with [facility] nurse regarding medication problem / prior [...] doesn't require PA. Per Dr. Scott - I'll call the pharmacy Return call back to [facility] with an update. Recommend calling the pharmacy in 1 hour to see if medication is ready. Any issues, please give the office a call back. Sister verbalizes understanding. Reason for Disposition [1] Caller has URGENT medicine question about med that PCP or specialist prescribed AND [2] triager unable to answer question Protocols used: Medication Question [id number] documented in this encounter [facility] 04-26-[address] Dudley received [...] a prescription to his local pharmacy for [facility]. We will continue to try and contact patient. [facility] 04-26-[address] Dudley received a [...] a prescription to his local pharmacy for [place]. We will continue to try and contact patient. documented in this encounter [facility] 02-20-2024 Telephone encounter Note Surgery Checklist Type: COLONOSCOPY Admission Type: outpatient Anesthesia: MAC Date: 05/13/24 Arrival Time: 12:30 PM Surgery Time: 1:30 PM Location: [facility] Prep mailed to patient. Brittany Roberson [facility] 02-20-2024 Telephone encounter Note ----- Message from Brittany Dowling sent at 12/22/2023 11:46 AM EDT ----- Regarding: Schedule Colonoscopy Call and Schedule a Colonoscopy. [facility] 02-20-2024 Miscellaneous Notes Surgery Checklist Type: COLONOSCOPY Admission Type: outpatient Anesthesia: MAC Date: 05/13/24 Arrival Time: 12:30 PM Surgery Time: 1:30 PM Location: [facility] Prep mailed to patient. Brittany Roberson ----- Message from Brittany Dowling sent at 12/22/2023 11:46 AM EDT ----- Regarding: Schedule Colonoscopy Call and Schedule a Colonoscopy. documented in this encounter [facility] 01-24-2024 History of Present illness Narrative Chief complaint : Subjective : José Manuel Ashton is a 63 year old male seen for CKD follow up. SUBJECTIVE: José Manuel Ashton is a 63 year old White male with past medical history significant for : Type 2 diabetes, hypertension, hyperlipidemia, depression, colon to [facility] on 05/23/23 with polyp, lumbar radiculopathy, history [...] AUTOSHIELD DUO PEN NEEDLE) 30 gauge x 3/16 ndle 1 Applicator four times daily. senna [...] quittin.8 Smokeless tobacco: Never Tobacco comments: Smokes [place] Vaping Use Vaping status: Never Used Substance [...] 192/98 Pulse 75 Ht 172.7 cm (5' 8) Wt 106.1 kg (234 lb) BMI 35.58 [...] Review Reviewed by Sebas Ocampo MD, Ph.D ([id number]) Comment (Serum Prot Electro) A reflex test [...] 3,715.7 Albumin/Creat Ratio <30 mg/g 5,008 (H) [place] Free, Serum 3.3 - 19.4 mg/L 57.0 (H) Lambda Free, Serum 5.7 - 26.3 mg/L 36.1 (H) K/L Ratio, Serum 0.26 - 1.65 1.58 DNA Antibody <=200 IU/mL 16 DNA Antibody Qualitative Interpretation Negative Negative MPA Result No M protein is identified. No M protein is identified. Staff Review (MPA) Reviewed by Sebas Ocampo MD, Ph.D ([id number]) C3 86 - 166 mg/dL 147 C4 [...] months (on 07/24/2024). documented in this encounter [facility] 12-29-2023 History of Present illness Narrative (E11.3293, [...] h/o steroid response post-op Plan: Monitor JANELL [phone] (sister, contact) (O88.6224) Early dry stage nonexudative age-related macular degeneration of both eyes Comment: Mottling, no fluid Plan: Monitor RTC 9 months diabetic check I have confirmed and edited as necessary the relevant ophthalmic history, ROS, and the neuro exam findings as obtained by others. I have seen and examined this patient. I have discussed the case and the management of this patient's care with the Resident/Fellow/Administrative Technician, if applicable. I also have reviewed and agree with the assessment and plan as stated above and agree with all of its relevant components. Renetta Meza MD December 29, 2023 4:16 PM documented in this encounter [facility] 12-22-2023 Telephone encounter Note PT called to cancel appointment 01/21, stating that he did not need to see Brent due to him having an appointment w/ a chemical strength tester.Reiterated to the PT last appointment orders and that issue brent was seeing for is recommended to keep appointment w/ urology. PT still refused cancelled appointment. Noah Mejia [facility] 12-22-2023 Miscellaneous Notes PT called to cancel appointment 01/21, stating that he did not need to see Brent due to him having an appointment w/ a chemical strength tester.Reiterated to the PT last appointment orders and that issue brent was seeing for is recommended to keep appointment w/ urology. PT still refused cancelled appointment. Noah Mejia documented in this encounter [facility] 12-18-2023 Telephone encounter Note Called the patient and left a voice message asking the patient to call the office back to schedule his Screening Colonoscopy. Brittany Roberson [facility] 12-18-2023 Miscellaneous Notes Called the patient and left a voice message asking the patient to call the office back to schedule his Screening Colonoscopy. Brittany Roberson documented in this encounter [facility] 11-20-2023 Miscellaneous Notes SITUATION: only patient present [...] for intervention/education details. documented in this encounter [facility] 11-20-2023 Patient's home Note SITUATION: only patient [...] restrictions See intervention summary for intervention/education details. [facility] Work Phone: 11-17-2023 Telephone encounter Note Unable to reach patient by phone to schedule P.T. visit. [facility] Work Phone: 11-17-2023 Miscellaneous Notes Unable to reach patient by phone to schedule P.T. visit. documented in this encounter [facility] 11-17-2023 Miscellaneous Notes Called all numbers listed for patient and left voice messages. Patient/caregiver did not return phone calls. documented in this encounter [facility] 11-17-2023 Plan of care note Called all numbers listed for patient and left voice messages. Patient/caregiver did not return phone calls. [facility] Work Phone: 11-17-2023 Miscellaneous Notes SN contacted Dr. Scott's office, no answer, VM left on nurse line with patient's name, , and message that this patient has been [facility] from [facility]-goals met. Call back number of [phone]. documented in this encounter [facility] 11-17-2023 Patient's home Note SN contacted Dr. Scott's office, no answer, VM left on nurse line with patient's name, , and message that this patient has been discharged from [facility] services-goals met. Call back number of [phone]. [facility] Work Phone: 11-16-2023 Miscellaneous Notes SITUATION: Custodial Discipline Discharge visit completed today. only patient [...] drainage, no redness or any s/s infection. LYLE He cont to ambulate using hurry cane. [...] Discharged due to Goals met. SN emailed portfolio mgrGirma herman RN re: SNDD today, asked if she would report this to Dr Scott since she is not in [facility] system RECOMMENDATION: Patient to continue with PT services. documented in this encounter [facility] 11-16-2023 Patient's home Note SITUATION: Custodial Discipline Discharge visit completed today. only patient [...] drainage, no redness or any s/s infection. LYLE He cont to ambulate using hurry cane. [...] Discharged due to Goals met. SN emailed portfolio mgrGirma herman RN re: SNDD today, asked if she would report this to Dr Scott since she is not in [employer] system RECOMMENDATION: Patient to continue with PT services. [facility] Work Phone: 11-15-2023 Miscellaneous Notes received a return fax from Dr. Scott dated 11/08/23 stating: Patient to continue with Sliding Scale INsulin only. No regularly scheduled Insulin dosing. This Sn then called sister Janell to inform her of this message. She states that is what he has been doing. Ster verbalizes understanding. documented in this encounter [facility] 11-15-2023 Patient's home Note SN received a return fax from Dr. Scott dated 11/08/23 stating: Patient to continue with Sliding Scale INsulin only. No regularly scheduled Insulin dosing. This Sn then called sister Janell to inform her of this message. She states that is what he has been doing. Ster verbalizes understanding. [facility] Work Phone: 11-15-2023 Miscellaneous Notes 11/15/23 11:16 AM - 11:20 AM FILTER PLANT OPERATOR received a phone call from the pt.'s sister Janell Waldrop and she stated that they did not complete the paperwork for PASSPORT due to she stated they did not think the pt. would qualify. FILTER PLANT OPERATOR asked the pt.'s sister if the pt. was able to bath himself. She stated that he is able to take his own shower. She stated she sets up his meds and he is able to get his meals. She stated that she took him grocery shopping yesterday, FILTER PLANT OPERATOR asked the pt.'s sister about transportation for the pt. to go to Outpatient Therapy. The pt.'s sister stated he goes on Monday and she is take him. The pt.'s sister stated she will transport the pt. to his Outpatient Therapy and they are aware of [facility]. She stated that the pt. was doing alot better. FILTER PLANT OPERATOR informed the pt.'s sister to call FILTER PLANT OPERATOR with any needs. documented in this encounter [facility] 11-15-2023 Patient's home Note 11/15/23 11:16 AM - 11:20 AM FILTER PLANT OPERATOR received a phone call from the pt.'s sister Janell Waldrop and she stated that they did not complete the paperwork for PASSPORT due to she stated they did not think the pt. would qualify. FILTER PLANT OPERATOR asked the pt.'s sister if the pt. was able to bath himself. She stated that he is able to take his own shower. She stated she sets up his meds and he is able to get his meals. She stated that she took him grocery shopping yesterday, FILTER PLANT OPERATOR asked the pt.'s sister about transportation for the pt. to go to Outpatient Therapy. The pt.'s sister stated he goes on Monday and she is take him. The pt.'s sister stated she will transport the pt. to his Outpatient Therapy and they are aware of [facility]. She stated that the pt. was doing alot better. FILTER PLANT OPERATOR informed the pt.'s sister to call FILTER PLANT OPERATOR with any needs. [facility] Work Phone: 11-14-2023 Miscellaneous Notes 11/14/23 11:51 AM - 11:53 AM FILTER PLANT OPERATOR called the pt.'s sister Janell and left her a message that FILTER PLANT OPERATOR was calling regarding if the pt. had a PASSPORT assessment and regarding transportation for Outpatient Therapy. FILTER PLANT OPERATOR left her name and phone number for the pt.'s sister to call FILTER PLANT OPERATOR back. documented in this encounter [facility] 11-14-2023 Patient's home Note 11/14/23 11:51 AM - 11:53 AM FILTER PLANT OPERATOR called the pt.'s sister Janell and left her a message that FILTER PLANT OPERATOR was calling regarding if the pt. had a PASSPORT assessment and regarding transportation for Outpatient Therapy. FILTER PLANT OPERATOR left her name and phone number for the pt.'s sister to call FILTER PLANT OPERATOR back. [facility] Work Phone: 11-14-2023 Miscellaneous Notes SITUATION: only patient present during today's visit. patient reports the following since the last homecare visit: medications/allergies--no changes, no fall. patient reports he was feeling ambituous and did extra squats and extra walking laps yesterday when working on his HEP, states he over did it is sore today as a result. Agreeable to PT. Patient states that before over doing it yesterday, he has been noticing functional improvement, [...] for intervention/education details. documented in this encounter [facility] 11-14-2023 Patient's home Note SITUATION: only patient present during today's visit. patient reports the following since the last homecare visit: medications/allergies--no changes, no fall. patient reports he was feeling ambituous and did extra squats and extra walking laps yesterday when working on his HEP, states he over did it is sore today as a result. Agreeable to PT. Patient states that before over doing it yesterday, he has been noticing functional improvement, [...] d/c See intervention summary for intervention/education details. [facility] Work Phone: 11-13-2023 Miscellaneous Notes SITUATION: OT [...] for intervention/education details. documented in this encounter [facility] 11-13-2023 Patient's home Note SITUATION: OT discharge [...] bathing See intervention summary for intervention/education details. [facility] Work Phone: 11-10-2023 Telephone encounter Note S: Patient sister called the clinical access center with complaint of Questions about G7 Dexcom. B: Ongoing unsure if the reader will turkey picker the blood sugar reading when he places the new G7 A: Patient c/o trying to put new G7 sensor on. Asking if the reader will work when they replace the sensor. R: Advised the reader should automatically turkey picker with the new G7 sensor. If [...] triager answers question Protocols used: Medication Question [id number] [facility] 11-10-2023 Miscellaneous Notes S: Patient sister called the clinical access center with complaint of Questions about G7 Dexcom. B: Ongoing unsure if the reader will turkey picker the blood sugar reading when he places the new G7 A: Patient c/o trying to put new G7 sensor on. Asking if the reader will work when they replace the sensor. R: Advised the reader should automatically turkey picker with the new G7 sensor. If [...] triager answers question Protocols used: Medication Question [id number] documented in this encounter [facility] 11-10-2023 Miscellaneous Notes SITUATION: Custodial routine visit completed today. SISTER also present [...] 206 at 11:30pm last night. This am [id number]. Patient denies any s/s HTN See intervention summary for education details. Patient demonstrated a need for further skilled SN services for chronic disease management & education and safety. Current Discharge plan: family support RECOMMENDATION: Next visit to focus on (be specific): SNDD documented in this encounter [facility] 11-10-2023 Patient's home Note SITUATION: Custodial routine visit completed today. SISTER also present [...] 206 at 11:30pm last night. This am [id number]. Patient denies any s/s HTN See intervention summary for education details. Patient demonstrated a need for further skilled SN services for chronic disease management & education and safety. Current Discharge plan: family support RECOMMENDATION: Next visit to focus on (be specific): SNDD [facility] Work Phone: 11-09-2023 Miscellaneous Notes SITUATION: only [...] for intervention/education details. documented in this encounter [facility] 11-09-2023 Patient's home Note SITUATION: only patient [...] training See intervention summary for intervention/education details. [facility] Work Phone: 11-07-2023 Miscellaneous Notes SITUATION: sister [...] for intervention/education details. documented in this encounter [facility] 11-07-2023 Patient's home Note SITUATION: sister present [...] ex See intervention summary for intervention/education details. [facility] Work Phone: 11-07-2023 Miscellaneous Notes Patient's sister cancelled vs for today, patient has PCP appt. She said to make next SN vs FRI this week. SN Notified dependency case managermgr Girma Hinds RN, She will fax Dr Scott re: missed vs as she is not in [facility] system documented in this encounter [facility] 11-07-2023 Patient's home Note Patient's sister cancelled vs for today, patient has PCP appt. She said to make next SN vs FRI this week. SN Notified dependency case managermgr Girma Hinds RN, She will fax Dr Scott re: missed vs as she is not in [facility] system [facility] Work Phone: 11-06-2023 Miscellaneous Notes SITUATION: OT [...] transfer, shower level bathing Patient identified goals to be indep Plan of care, goals, and visit frequency reviewed and agreed upon with patient and/or caregiver. See intervention summary for intervention/education details. Current Discharge Plan: remain in community with/without caregiver support. Anticipate discharge by 11/18/23 RECOMMENDATION: Next visit to focus on review of ue hep safety documented in this encounter [facility] 11-06-2023 Patient's home Note SITUATION: OT routine [...] transfer, shower level bathing Patient identified goals to be indep Plan of care, goals, and visit frequency reviewed and agreed upon with patient and/or caregiver. See intervention summary for intervention/education details. Current Discharge Plan: remain in community with/without caregiver support. Anticipate discharge by 11/18/23 RECOMMENDATION: Next visit to focus on review of ue hep safety [facility] Work Phone: 11-03-2023 Miscellaneous Notes sent the following fax to Dr. Scott: Patient: José Manuel Ashton : 1960 Physician: Dr. Bunny Scott Please clarify if this above patient is to take the new Sliding Scale Insulin in addition to the already scheduled Insulin lispro 8u prior to each meal and Insulin glargine 24u at HS? Thank you! Please return to Attn: Simeon Hinds RN documented in this encounter [facility] 11-03-2023 Patient's home Note SN sent the following fax to Dr. Scott: Patient: José Manuel Ashton : 1960 Physician: Dr. Bunny Scott Please clarify if this above patient is to take the new Sliding Scale Insulin in addition to the already scheduled Insulin lispro 8u prior to each meal and Insulin glargine 24u at HS? Thank you! Please return to Attn: Simeon Hinds RN [facility] Work Phone: 11-03-2023 Miscellaneous Notes SITUATION: Custodial routine visit completed today. only patient also [...] sliding scale. So this am , his [id number] & he only took 2 units Humalog, NOT 10 units total. SN called Dr Scott's office, yet they are closed, 3:30pm. SN reported this to dependency case managerGirma herman RN & She will [...] understanding. His sister is also going to turkey picker some glucose tablets at the pharmacy [...] if humalog clarified? documented in this encounter [facility] 11-03-2023 Patient's home Note SITUATION: Custodial routine visit completed today. only patient also [...] sliding scale. So this am , his TYY=361 & he only took 2 units Humalog, NOT 10 units total. SN called Dr Scott's office, yet they are closed, 3:30pm. SN reported this to dependency case managerGirma herman RN & She will [...] understanding. His sister is also going to turkey picker some glucose tablets at the pharmacy [...] to med list, see if humalog clarified? T [facility] Work Phone: 11-02-2023 Miscellaneous Notes SITUATION: only [...] reported comfort with the visit. spoke with LIZZ irving; Zohaib is still awaiting return call from MD on whether patient is still required to brace. Plan of care, goals, and visit frequency reviewed and agreed upon with patient and/or caregiver. Current Discharge Plan: independent with home exercise program Anticipate discharge by tbd RECOMMENDATION: Next visit to focus on gait training See intervention summary for intervention/education details. documented in this encounter [facility] 11-02-2023 Patient's home Note SITUATION: only patient [...] reported comfort with the visit. spoke with LIZZ irving; Zohaib is still awaiting return call from MD on whether patient is still required to brace. Plan of care, goals, and visit frequency reviewed and agreed upon with patient and/or caregiver. Current Discharge Plan: independent with home exercise program Anticipate discharge by tbd RECOMMENDATION: Next visit to focus on gait training See intervention summary for intervention/education details. [facility] Work Phone: 10-31-2023 Miscellaneous Notes SITUATION: Custodial routine visit completed today. only patient also [...] uses ice. 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 Small scab left to upper portion. States he prefers to use cane when ambulating. States at times, feels like his left leg is going to give out. States he stands up slowly & pauses [...] PCP appt 10/31 documented in this encounter [facility] 10-31-2023 Patient's home Note SITUATION: Custodial routine visit completed today. only patient also [...] uses ice. 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 Small scab left to upper portion. States he prefers to use cane when ambulating. States at times, feels like his left leg is going to give out. States he stands up slowly & pauses [...] med changes from his PCP appt 10/31 [facility] Work Phone: 10-30-2023 Miscellaneous Notes SITUATION: OT [...] transfers and ue hep Patient identified goals to get stronger Plan of care, goals, and visit frequency reviewed and agreed upon with patient and/or caregiver. See intervention summary for intervention/education details. Current Discharge Plan: remain in community with/without caregiver support. Anticipate discharge by 11/18/23 RECOMMENDATION: Next visit to focus on shower level bathing and transfers documented in this encounter [facility] 10-30-2023 Patient's home Note SITUATION: OT routine [...] transfers and ue hep Patient identified goals to get stronger Plan of care, goals, and visit frequency reviewed and agreed upon with patient and/or caregiver. See intervention summary for intervention/education details. Current Discharge Plan: remain in community with/without caregiver support. Anticipate discharge by 11/18/23 RECOMMENDATION: Next visit to focus on shower level bathing and transfers [facility] Work Phone: 10-28-2023 Miscellaneous Notes PT to [...] Disease, With Long-Term Current Use of Insulin ([facility]) Obesity, Class II, Bmi 35-39.9 Weight Bearing or Surgical Precautions: Fall Risk No BLT > 10#, LSO brace OOB, PPPD (vertigo), extreme fall risk, prefers cane for mobilization ASSESSMENT: Patient evaluated by [facility] Homecare physical therapy. Reviewed and explained homecare [...] for intervention/education details. documented in this encounter [facility] 10-28-2023 Patient's home Note PT to contact Dr. Gutierrez on 10/30/23 for the following: Clarify status of back brace. [facility] Work Phone: 10-28-2023 Patient's home Note SITUATION: [...] cane for mobilization ASSESSMENT: Patient evaluated by [facility] Homecare physical therapy. Reviewed and explained homecare [...] HEP. See intervention summary for intervention/education details. [facility] 10-27-2023 Telephone encounter Note Patient accepted and confirmed PT eval for 10/28/23. [facility] 10-27-2023 Miscellaneous Notes Patient accepted and confirmed PT eval for 10/28/23. documented in this encounter [facility] 10-27-2023 Telephone encounter Note There has been a delay in service for Home Care PT Evaluation for this patient due to schedule conflict. Patient was notified on 10/27/23. Thank you for this referral, please contact us with any questions. Maxine Alonzo [facility] 10-27-2023 Miscellaneous Notes There has been a delay in service for Home Care PT Evaluation for this patient due to schedule conflict. Patient was notified on 10/27/23. Thank you for this referral, please contact us with any questions. Maxine Lopez Director Of Maternity Services documented in this encounter [facility] 10-27-2023 Miscellaneous Notes SITUATION: OT evaluation only [...] Disease, With Long-Term Current Use of Insulin ([facility]) Obesity, Class II, Bmi 35-39.9 SPECIFIC ORDERS [...] due to surgical precautions. Patient evaluated by [facility] Homecare occupational therapy. Reviewed and explained homecare services. Plan of care, goals and visit frequency developed, reviewed, and agreed upon with patient and/or caregiver. Patient identified goals: to be able to care for myselft. Patient will benefit from continued occupational therapy [...] for intervention/education details. documented in this encounter [facility] 10-27-2023 Patient's home Note SITUATION: OT evaluation [...] due to surgical precautions. Patient evaluated by [facility] Homecare occupational therapy. Reviewed and explained homecare services. Plan of care, goals and visit frequency developed, reviewed, and agreed upon with patient and/or caregiver. Patient identified goals: to be able to care for myselft. Patient will benefit from continued occupational therapy [...] hep. See intervention summary for intervention/education details. [facility] Work Phone: 10-26-2023 Miscellaneous Notes 10/26/23 FILTER PLANT OPERATOR made a PASSPORT referral for the pt. to [facility]. documented in this encounter [facility] 10-26-2023 Patient's home Note 10/26/23 FILTER PLANT OPERATOR made a PASSPORT referral for the pt. to [facility]. [facility] Work Phone: 10-26-2023 Miscellaneous Notes SITUATION: Medical [...] Current Use of Insulin (Hcc), Reason for REGIONAL BUSINESS DEVELOPMENT MANAGER referral: eval and treat for Community [employer]-global or Mom's meals?, eligible for PASSPORT. Pt could use both for personal care and homemaking assist. Family dynamics and household members: The pt. lives alone in senior apartment that he recently moved into the end of August. The pt.'s sister Laci Waldrop who lives in [place] is the pt.'s primary caregiver. ASSESSMENT: REGIONAL BUSINESS DEVELOPMENT MANAGER greeted at door by Eda Bright RN who was finishing her visit. The patien's sister fisher been assisting the pt. almost daily and feels the pt. needs more help in the home. Se is concerned about the pt. needing assist with bathing. Comments: FILTER PLANT OPERATOR arrived the pt.'s apt. and the pt.'s sister had went to meet FILTER PLANT OPERATOR at the main door. The pt.'s sister Janell came back to the pt.'s apt. The pt.'s apt. was scarcely furnished and the pt. does not have a TV. The pt.'s sister stated she is going to buy the pt. a smart TV. The pt.'s sister discussed how the pt. living in a basement apartment the reception agent on his phone and TV are not good and she was told to get the pt. a smart TV. The pt. has a radio that he had on. FILTER PLANT OPERATOR educated the pt. and his sister Janell on [facility] and PASSPORT for an Aide/Homemaker, Home Delivered Meals and ER Medical Alert. The pt.'s sister stated she was going to check into the pt.'s insurance [facility] Medicare regarding if they would provide the pt. with an ER Medical Alert. FILTER PLANT OPERATOR informed the pt. and his sister that they can call member or customer service on the back of the pt.'s insurnace card regarding this. FILTER PLANT OPERATOR educated on [facility] for Home Delivered Meals and [place] Home Delivered Meals through [facility]. The pt.'s sister discussed the pt. needing to be on a Diabetic diet. FILTER PLANT OPERATOR discussed other Home Delivered Meal Providers sucha as Moms Meals and [employer] Meals for Diabetic Meals and they are provided under PASSPORT. The pt. and his sister want FILTER PLANT OPERATOR to make a PASSPORT referral for the pt. to [facility]. FILTER PLANT OPERATOR did inform the pt. and his sister it takes time to get on PASSPORT. The pt.'s sister has been taking the pt. to all his medical appointments. FILTER PLANT OPERATOR educated on [facility] and that the pt.'s [facility] Medicare may provide transportation to medical appointments and to talk with member or customer service on the back of the pt.'s insurance card. The pt.'s sister stated she grocery shops for the pt. FILTER PLANT OPERATOR educated on [facility] having Volunteers that will grocery shop at [facility] for you. ;SW discussed with the pt. and his sister regarding Advanced Directives for the Living Will and Medical POA. The pt.stated she puts his sister giancarlow that they can talk to her. FILTER PLANT OPERATOR educated more the Medical POA and Living Will. The pt.'s sister stated she thinks the insurance lady gave them the forms that they can complete if wanted. The pt.'s sister is planning to take the pt. to a Chemical Plant Manager to get the pt.'s toenails cut. FILTER PLANT OPERATOR educated the pt. and his sister on the [employer] for a Chemical Plant Manager to come to the home if too hard to get the pt. out. RECOMMENDATIONS: Recommended the following services: [facility]/PASSPORT, [facility] for Home Delivered Meals, Volunteer to grocery shop at [facility], [facility] Medicare may provide transportation to medical appointments and provide the pt. with an ER Medical Alert, other Home Delivered Meal Providers. Referrals made to: FILTER PLANT OPERATOR made a PASSPORT referral for the pt. to [facility]. Written information provided: On [facility]/PASSPORT. Response to recommendations: patient and his siter Janell in agreement to referral made to [facility] for PASSPORT. Medical social work provided support services in order to ensure a safe and appropriate discharge plan. If care team members have any additional concerns identified in the home, please notify REGIONAL BUSINESS DEVELOPMENT MANAGER for follow up. REGIONAL BUSINESS DEVELOPMENT MANAGER provided name and number to patient and his sister Janell for follow up if/when needed. Team/Physician updated: 1:49 PM - 1:52 PM FILTER PLANT OPERATOR called Dr. Bunny Scott [facility] FILTER PLANT OPERATOR made a home visit to the pt. today and his sister Janell was present. FILTER PLANT OPERATOR stated that the pt.'s sister Janell assists the pt. almost daily. FILTER PLANT OPERATOR stated that she made a PASSPORT referral for the pt. to [facility] for the pt. to get an Aide/Homemaker, Home Delivered Meals, ER Medical Alert. FILTER PLANT OPERATOR stated that she spoke to the pt. and his sister regarding transportation and that the pt.'s [facility] Medicare may provide transportation to medical appointments and provide the pt. with an ER Medical Alert. Mckayla stated she will inform the DrShireen of this. documented in this encounter [facility] 10-26-2023 Patient's home Note SITUATION: Medical Social Work evaluation completed today. The patient and his sister Janell present during today's visit. The patient and caregiver reports the following changes since the last homecare visit: Falls--None BACKGROUND: Diagnoses (reason for Home Care): Alcohol Dependence (Hcc), Type 2 Diabetes Mellitus With Stage 3b Chronic Kidney Disease, With Long-Term Current Use of Insulin (Hcc), Reason for REGIONAL BUSINESS DEVELOPMENT MANAGER referral: eval and treat for [employer] or Mom's meals?, eligible for PASSPORT. Pt could use both for personal care and homemaking assist. Family dynamics and household members: The pt. lives alone in senior apartment that he recently moved into the end of August. The pt.'s sister Laci Waldrop who lives in [place] is the pt.'s primary caregiver. ASSESSMENT: REGIONAL BUSINESS DEVELOPMENT MANAGER greeted at door by Eda Bright RN who was finishing her visit. The patien's sister fisher been assisting the pt. almost daily and feels the pt. needs more help in the home. Se is concerned about the pt. needing assist with bathing. Comments: FILTER PLANT OPERATOR arrived the pt.'s apt. and the pt.'s sister had went to meet FILTER PLANT OPERATOR at the main door. The pt.'s sister Janell came back to the pt.'s apt. The pt.'s apt. was scarcely furnished and the pt. does not have a TV. The pt.'s sister stated she is going to buy the pt. a smart TV. The pt.'s sister discussed how the pt. living in a basement apartment the reception agent on his phone and TV are not good and she was told to get the pt. a smart TV. The pt. has a radio that he had on. FILTER PLANT OPERATOR educated the pt. and his sister Janell on [facility] Agency on Aging and PASSPORT for an Aide/Homemaker, Home Delivered Meals and ER Medical Alert. The pt.'s sister stated she was going to check into the pt.'s insurance [facility] Medicare regarding if they would provide the pt. with an ER Medical Alert. FILTER PLANT OPERATOR informed the pt. and his sister that they can call member or customer service on the back of the pt.'s insurnace card regarding this. FILTER PLANT OPERATOR educated on [facility] Office For Older Adults for Home Delivered Meals and [place] Home Delivered Meals through [facility]. The pt.'s sister discussed the pt. needing to be on a Diabetic diet. FILTER PLANT OPERATOR discussed other Home Delivered Meal Providers sucha as Moms Meals and Global Meals for Diabetic Meals and they are provided under PASSPORT. The pt. and his sister want FILTER PLANT OPERATOR to make a PASSPORT referral for the pt. to [facility] Agency on Aging. FILTER PLANT OPERATOR did inform the pt. and his sister it takes time to get on PASSPORT. The pt.'s sister has been taking the pt. to all his medical appointments. FILTER PLANT OPERATOR educated on [facility] Public [employer] and that the pt.'s [facility] Medicare may provide transportation to medical appointments and to talk with member or customer service on the back of the pt.'s insurance card. The pt.'s sister stated she grocery shops for the pt. FILTER PLANT OPERATOR educated on [facility] For Older Adults having Volunteers that will grocery shop at [employer] for you. ;SW discussed with the pt. and his sister regarding Advanced Directives for the Living Will and Medical POA. The pt.stated she puts his sister donw that they can talk to her. FILTER PLANT OPERATOR educated more the Medical POA and Living Will. The pt.'s sister stated she thinks the insurance lady gave them the forms that they can complete if wanted. The pt.'s sister is planning to take the pt. to a Chemical Plant Manager to get the pt.'s toenails cut. FILTER PLANT OPERATOR educated the pt. and his sister on the [employer] for a Chemical Plant Manager to come to the home if too hard to get the pt. out. RECOMMENDATIONS: Recommended the following services: [facility] on ClrTouch/dVisitPORT, [facility] office For Older Adults for Home Delivered Meals, Volunteer to grocery shop at [facility] Medicare may provide transportation to medical appointments and provide the pt. with an ER Medical Alert, other Home Delivered Meal Providers. Referrals made to: FILTER PLANT OPERATOR made a PASSPORT referral for the pt. to [facility] on Aging. Written information provided: On [facility] on Aging/PASSPORT. Response to recommendations: patient and his siter Janell in agreement to referral made to [facility] on ClrTouch for PASSPORT. Medical social work provided support services in order to ensure a safe and appropriate discharge plan. If care team members have any additional concerns identified in the home, please notify REGIONAL BUSINESS DEVELOPMENT MANAGER for follow up. REGIONAL BUSINESS DEVELOPMENT MANAGER provided name and number to patient and his sister Janell for follow up if/when needed. Team/Physician updated: 1:49 PM - 1:52 PM FILTER PLANT OPERATOR called Dr. Bunny Scott and spoke to [facility] regarding FILTER PLANT OPERATOR made a home visit to the pt. today and his sister Janell was present. FILTER PLANT OPERATOR stated that the pt.'s sister Janell assists the pt. almost daily. FILTER PLANT OPERATOR stated that she made a PASSPORT referral for the pt. to [facility] [employer] for the pt. to get an Aide/Homemaker, Home Delivered Meals, ER Medical Alert. OSCAR stated that she spoke to the pt. and his sister regarding transportation and that the pt.'s [facility] Medicare may provide transportation to medical appointments and provide the pt. with an ER Medical Alert. Mckayla stated she will inform the DrShireen of this. [facility] Work Phone: 10-26-2023 Miscellaneous Notes SITUATION: Custodial routine visit completed today. pt's sister also [...] they see PCP Monday. SN called Dr Soctt's office, left message on nurse line re: [...] blood sugars, pain documented in this encounter [facility] 10-26-2023 Patient's home Note SITUATION: Custodial routine visit completed today. pt's sister also [...] them to cleanse with alcohol & leave PRINCIPAL CLOUD ARCHITECT or can apply ABD for protection/padding Patient [...] specific): assess back incision, blood sugars, pain [facility] Work Phone: 10-24-2023 Miscellaneous Notes 10/24/23 9:30 AM - 9:35 AM FILTER PLANT OPERATOR received a phone call from the pt.'s sister Janell Ashton returning FILTER PLANT OPERATOR'S phone call. FILTER PLANT OPERATOR stated she was calling regarding the pt. and community resources. FILTER PLANT OPERATOR educated the pt.'s sister on [facility] Agency on Aging and PASSPORT. FILTER PLANT OPERATOR discussed an Aide/Homemaker, Home Delivered Meals and ER Medical Alert under PASSPORT. FILTER PLANT OPERATOR stated she could make a home visit and the pt.'s sister supportive of this. She stated that she got the pt. a shower chair and handheld shower.She stated that she is not sure about the pt. bathing. The pt.'s sister wants to be present for FILTER PLANT OPERATOR visit and FILTER PLANT OPERATOR visit scheduled for 10/26/23 at 10:00 AM. documented in this encounter [facility] 10-24-2023 Patient's home Note 10/24/23 9:30 AM - 9:35 AM FILTER PLANT OPERATOR received a phone call from the pt.'s sister Janell Ashton returning FILTER PLANT OPERATOR'S phone call. FILTER PLANT OPERATOR stated she was calling regarding the pt. and community resources. FILTER PLANT OPERATOR educated the pt.'s sister on [facility] Agency on Aging and PASSPORT. FILTER PLANT OPERATOR discussed an Aide/Homemaker, Home Delivered Meals and ER Medical Alert under PASSPORT. FILTER PLANT OPERATOR stated she could make a home visit and the pt.'s sister supportive of this. She stated that she got the pt. a shower chair and handheld shower.She stated that she is not sure about the pt. bathing. The pt.'s sister wants to be present for FILTER PLANT OPERATOR visit and FILTER PLANT OPERATOR visit scheduled for 10/26/23 at 10:00 AM. [facility] Work Phone: 10-23-2023 Miscellaneous Notes 10/23/23 12:48 PM - 12;50 PM FILTER PLANT OPERATOR called the pt.'s sister Janell Ashton and left her a message that FILTER PLANT OPERATOR was calling regarding the pt. and community resources and more help with the pt.'s care. FILTER PLANT OPERATOR left her name and phone number to call FILTER PLANT OPERATOR back. documented in this encounter [facility] 10-23-2023 Patient's home Note 10/23/23 12:48 PM - 12;50 PM FILTER PLANT OPERATOR called the pt.'s sister Janell Ashton and left her a message that FILTER PLANT OPERATOR was calling regarding the pt. and community resources and more help with the pt.'s care. FILTER PLANT OPERATOR left her name and phone number to call FILTER PLANT OPERATOR back. [facility] Work Phone: 10-22-2023 Miscellaneous Notes SITUATION: Custodial SOC visit completed today. only patient present [...] laminectomy on 09/25 and then went to [facility] for rehab. He returned home on 10/19. [...] on edge of bed for review of [facility] booklet and signed consent. SN then [...] be here after she gets home from y[place]. Pt has a lower back incision that is covered with a ABD pad and has lidocaine patches to either side(placed on 10/19). All of this was removed by SN. Incision is well approximated and secured with steristrips. There is a small opening at most proximal area that has a scant amount of serous drainage and pt was placed on cephalexin before dc by [facility]. Immediate area is slightly [...] and pt and sister are VERY interested. REGIONAL BUSINESS DEVELOPMENT MANAGER referral is in place to address. SN will also have REGIONAL BUSINESS DEVELOPMENT MANAGER address any other resources such as PASSPORT; pt could benefit from personal care assistance as well as homemaking and ways to make him more independent from his sister. Pt's surgery was at [facility] and he will follow up with [...] in the past as well as other illegal susbstances which he states that he has not [...] with his care but does live in [place] and is not available 24/10 See intervention [...] services: Patient agreeable to PT, OT and REGIONAL BUSINESS DEVELOPMENT MANAGER referrals. Patient declined N/A referrals. Additional concerns to be followed up on: NONE Next visit to focus on (be specific): incision check, CP assessment, continue diabetic teaching, follow up on REGIONAL BUSINESS DEVELOPMENT MANAGER referral for community resources. documented in this encounter [facility] 10-22-2023 Patient's home Note SITUATION: Custodial SOC visit completed today. only patient present [...] laminectomy on 09/25 and then went to [facility] for rehab. He returned home on 10/19. [...] on edge of bed for review of [facility] booklet and signed consent. SN then [...] be here after she gets home from [place]. Pt has a lower back incision that is covered with a ABD pad and has lidocaine patches to either side(placed on 10/19). All of this was removed by SN. Incision is well approximated and secured with steristrips. There is a small opening at most proximal area that has a scant amount of serous drainage and pt was placed on cephalexin before dc by [facility]. Immediate area is slightly [...] and pt and sister are VERY interested. REGIONAL BUSINESS DEVELOPMENT MANAGER referral is in place to address. SN will also have REGIONAL BUSINESS DEVELOPMENT MANAGER address any other resources such as PASSPORT; pt could benefit from personal care assistance as well as homemaking and ways to make him more independent from his sister. Pt's surgery was at [facility] and he will follow up with [...] in the past as well as other illegal susbstances which he states that he has not [...] with his care but does live in [place] and is not available 24/10 See intervention [...] services: Patient agreeable to PT, OT and REGIONAL BUSINESS DEVELOPMENT MANAGER referrals. Patient declined N/A referrals. Additional concerns to be followed up on: NONE Next visit to focus on (be specific): incision check, CP assessment, continue diabetic teaching, follow up on REGIONAL BUSINESS DEVELOPMENT MANAGER referral for community resources. [facility] Work Phone: 10-21-2023 Miscellaneous Notes Patient accepted and confirmed home health start of care (SOC) for 10/22/23. Visit time established. documented in this encounter [facility] 10-21-2023 Telephone encounter Note Patient accepted and confirmed home health start of care (SOC) for 10/22/23. Visit time established. [facility] Work Phone: 10-20-2023 Telephone encounter Note Called patient to confirm and schedule start of care visit. No answer. Left voicemail [facility] 10-20-2023 Miscellaneous Notes Called patient to confirm and schedule start of care visit. No answer. Left voicemail documented in this encounter [facility] 10-18-2023 Note [facility] 10-18-2023 Note [facility] 10-17-2023 Note [facility] 10-15-2023 Note HNO ID: [id number] Author: JARETT MCMULLEN, RN Service: Nursing Author Type: Registered Nurse Type: Nursing Progress Note Filed: 10/15/2023 12:28 Note Text: Service dog in to see patient at this time. [facility] 10-13-2023 Note [facility] 10-13-2023 Telephone encounter Note Date/Time: 10/13/2023 9:21 AM Spoke with Janell Ashton @ phone #: [phone] - Preferred # for contact: [phone] Have you received help from a home care company in the last 60 days? NO Are you agreeable to [facility] services? YES What address will we be seeing you at? [address] [place] [address] [place], [place] [id number] Do you have any upcoming appointments or things we need to schedule around? 10/20/23, 10/25/23 Do you have a teachable CG or can you manage your care independently? Independently FLU SHOT NOT SURE WHERE [facility] Work Phone: 10-13-2023 Miscellaneous Notes Date/Time: 10/13/2023 9:21 AM Spoke with Janell Ashton @ phone #: [phone] - Preferred # for contact: [phone] Have you received help from a home care company in the last 60 days? NO Are you agreeable to [facility] services? YES What address will we be seeing you at? [address] [facility] [address] Do you have any upcoming appointments or things we need to schedule around? 10/20/23, 10/25/23 Do you have a teachable CG or can you manage your care independently? Independently FLU SHOT NOT SURE WHERE Called pt and sister Janell, left messages to call office, wanted to confirm home care services. Savanna Mayorga LPN documented in this encounter [facility] 10-12-2023 Telephone encounter Note Called and spoke with Shelia in providers office, she confirmed will follow for services. Savanna Mayorga LPN [facility] Work Phone: 10-12-2023 Miscellaneous Notes Called and spoke with Shelia in providers office, she confirmed will follow for services. Savanna Mayorga LPN documented in this encounter [facility] 10-12-2023 Telephone encounter Note Called pt and sister Janell, left messages to call office, wanted to confirm home care services. Savanna Mayorga LPN [facility] Work Phone: 10-09-2023 Note [facility] 10-06-2023 Note [facility] 10-04-2023 Note [facility] 08-04-2023 Telephone encounter Note Spoke with José Manuel Ashton's on August 04, 2023. Informed of results / instructions as stated above. Maryuri LAMBERT Romero states she will be taking José Manuel to a Apprentice Pattern Maker for his potassium but he will still have to follow up here for his A1c. CLOSED [facility] 08-04-2023 Miscellaneous Notes Spoke with José Manuel Ashton's on August 04, 2023. Informed of results / instructions as stated above. Maryuri Romero MA states she will be taking José Manuel to a Apprentice Pattern Maker for his potassium but he will still have to follow up here for his A1c. CLOSED Called patients home and left VM to call back office at [phone]. Please give message below. Thank you I [...] patient is scheduled for surgery at the [facility] on 08/08/23. They are requesting surgical clearance for diabetes from Dr Peterson. We have not received their fax as of yet. Recommended she have them re-fax the form. Also, apparently he had recent labs drawn with [facility] including an updated A1c, recommended she [...] results to proceed. documented in this encounter [facility] 08-03-2023 Telephone encounter Note Called patients home and left VM to call back office at [phone]. Please give message below. [facility] 08-03-2023 Telephone encounter Note Thank you I [...] received anything from the anaesthesia/surgical team [facility] Work Phone: 08-01-2023 Telephone encounter Note Pt called and stated that the Flomax capsules gets stuck in throat so he can't take it and would like it to be in tablet form or change medication. Pt also stated that he has not have the Proscar and would need a Rx for that, please advise. Julieta odonnell MA [facility] 08-01-2023 Miscellaneous Notes Pt called and stated that the Flomax capsules gets stuck in throat so he can't take it and would like it to be in tablet form or change medication. Pt also stated that he has not have the Proscar and would need a Rx for that, please advise. Julieta odonnell MA documented in this encounter [facility] 07-28-2023 Telephone encounter Note Received a call from patients (Janell) she state's patient is scheduled for surgery at the [facility] on 08/08/23. They are requesting surgical clearance for diabetes from Dr Peterson. We have not received their fax as of yet. Recommended she have them re-fax the form. Also, apparently he had recent labs drawn with [facility] including an updated A1c, recommended she [...] await documents and lab results to proceed. [facility] 07-12-2023 Note Jude Peterson [facility] 07-12-2023 History of Present illness Narrative ESTABLISHED [...] (no units) Date Value 06/04/2023 Negative Specific Cyril, Ur (no units) Date Value 06/04/2023 1.020 [...] AUTOSHIELD DUO PEN NEEDLE) 30 gauge x 3/16 ndle^1 Applicator four times daily.^Disp: 360 Each^Rfl: [...] quittin.2 Smokeless tobacco: Never Tobacco comments: Smokes [place] Vaping Use Vaping Use: Never used Substance [...] neg 02/17/2020 PSA 0.8, no Fhx of School Athletic Director Assessment and Plan: Microhematuria- prior w/u neg, no gross LUTS- baseline IPSS 26, nocturia 2-3x, freq Q 2h, ++ urgency, no leak, no hematuira/dysuria - poor BS control and pinched nerve, to have surgery in August - on Flomax but he's not sure about the Proscar; will check and let me know - I told them any BPH surgical intervention would require preoperative UDS; re-eval after surgery PSA ordered documented in this encounter [facility] 06-22-2023 History of Present illness Narrative Images [...] 2 diabetes, hypertension, hyperlipidemia, depression, colon to [facility] on 05/23/23 with polyp, lumbar radiculopathy, history [...] AUTOSHIELD DUO PEN NEEDLE) 30 gauge x 3/16 ndle 1 Applicator four times daily. 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 Ahamdi REMV CATARACT EXTRACAP,INSERT LENS Left 08/18/2022 REMV [...] Review Reviewed by Sebas Ocampo MD, Ph.D ([id number]) Comment (Serum Prot Electro) A reflex test [...] 3,715.7 Albumin/Creat Ratio <30 mg/g 5,008 (H) [place] Free, Serum 3.3 - 19.4 mg/L 57.0 (H) Lambda Free, Serum 5.7 - 26.3 mg/L 36.1 (H) K/L Ratio, Serum 0.26 - 1.65 1.58 DNA Antibody <=200 IU/mL 16 DNA Antibody Qualitative Interpretation Negative Negative MPA Result No M protein is identified. No M protein is identified. Staff Review ([facility]) Reviewed by Sebas Ocampo MD, Ph.D ([id number]) C3 86 - 166 mg/dL 147 C4 [...] follow-ups on file. documented in this encounter [facility] 06-20-2023 Evaluation note Diagnosis Stage 3a chronic kidney disease (HCC)- Primary Hypertension, essential Unspecified essential hypertension Vitamin D deficiency Unspecified vitamin D deficiency Other proteinuria Secondary hyperparathyroidism (HCC) Secondary hyperparathyroidism (of renal origin) documented in this encounter [facility]03-11-2024 NoteHNO ID: [id number] Author: KANWAL CALLE RN Service: Nursing Author Type: Registered Nurse Type: Nursing Progress Note Filed: 06/12/2023 14:16 Note Text: Other: watched channel 95 fall video and verballized understanding.[facility]03-11-2024 History of Past illness Narrative* [...] of this encounter (statuses as of 06/20/2023) [facility]03-11-2024 History of Past illness Narrative* [...] of this encounter (statuses as of 06/22/2023) [facility]03-11-2024 History of Past illness Narrative* [...] of this encounter (statuses as of 07/13/2023) [facility]03-09-2024 [facility]03-09-2024 NoteHNO ID: [id number] Author: NOTE, INTERFACE, ? Service: ? Author Type: ? Type: Progress Notes Filed: 06/10/2023 03:42 Note Text: Epic Scheduled Downtime: 06/10/2023 1:00:00 AM to 06/10/2023 3:24:00 [facility]2024 [facility]03-06-2024 [facility]03-04-2024 Note [facility]03-03-2024 [facility] 06-03-2023 [facility]03-01-2024 [facility]02-27-2024 [facility]02-26-2024 [facility]02-25-2024 [facility]02-20-2024 [facility]02-20-2024 History of Present illness Narrative* Jen [...] up with PCP Care Team Tab - End: YES Jen Bergman RN [facility] History of Present illness Narrative* Mónica Peterson [...] quittin.1 Smokeless tobacco: Never Tobacco comments: Smokes [place] Vaping Use Vaping Use: Never used Substance [...] DAILY (6 AM). 30 tablet 2 Insulin [place], Disposable, (COMFORT EZ PEN NEEDLES) 29 gauge x 1/2 1 Each once daily. (Patient not taking: [...] lb 11.9 oz) Height: 177.8 cm (5' 10) General: alert but looks ill Neuro: Alert [...] - Moderate This note was created using GrabCAD dictation software. You may find errors that were missed during proofreading. They are purely unintentional and if there are any concerns regarding this dictation, please do not hesitate to contact the dictating provider for clarification. Mónica Peterson MD [facility]02-16-2024 History of Present illness Narrative* Jen [...] 10/05/2022 Urine Albumin:Creatinine Ratio 01/23/2023 HbA1C 02/01/2023 Soil Conservationist plan for next outreach: Will follow-up in about a month. Signature: Jen Bergman RN May 19, 2023 [facility] Miscellaneous Notes* Telephone Encounter - Elisabeth Parekh - 05/12/2023 8:10 AM EST Spoke to patients sister who stated she handles calls for José Manuel . Notified of canceled appt due to provider being out of office. She did not want to reschedule the appointment. Thanks Elisabeth Parekh [facility]23 Miscellaneous Notes* Telephone Encounter - Juliette, Lily - 03/07/2023 12:25 PM ESTSummary: appointment cancellation Left voicemail at [phone] about rescheduling appt with Dr. Godinez. Left phone number for patient to call in. Tmr 03-07-23 12:23pm [facility] in [facility] History of Present illness Narrative* Jen Bergman [...] Understands and follows DASH diet Weight mgmt/activity Soil Conservationist plan for next outreach: Will follow-up in about 1 month. Signature: Jen Bergman RN January 27, 2023 documented in [facility] History of Present illness Narrative* Mark Godinez [...] quittin.8 Smokeless tobacco: Never Tobacco comments: Smokes [place] Vaping Use Vaping Use: Never used Substance [...] 8 hours as needed for nausea/vomiting. Insulin [place], Disposable, (COMFORT EZ PEN NEEDLES) 29 gauge x 1/2 1 Each once daily. blood sugar diagnostic [...] child PHYSICAL EXAMINATION: Resp 18 Ht 5' 10 (1.78m) Wt 251 lb (113.9kg) BMI 36.01 [...] Injection. Mark Godinez MD documented in [facility]23 Miscellaneous Notes* Telephone Encounter - Valery Mcintyre - 01/06/2023 11:35 AM EDT Appointment made ----- Message from Rebecca Segundo sent at 01/06/2023 10:09 AM EDT ----- Regarding: Orthopedics / Gretchen Hip: Injection / Unable To Schedule Dx Subject Line Format: Orthopedics / [Provider Name or Open & Body Part] / [Issue] Patient has been identified by [...] than patient: mendez Maciel Best contact number: [phone] Thank you, Rebecca Segundo January 06, 2023 10:09 AM documented in this encounterMain Campus [facility] Center09-22-2023 Miscellaneous Notes* Telephone Encounter - JanesKenya - 12/23/2022 4:50 PM EDT Confirmation number: [id number] Consult to Pain Management Gave patient phone number to call as well, documented in this encounterMain Campus Medical Center09-22-2023 History of Present illness Narrative* Belgica Vega, - 12/23/2022 3:43 PM EDT Images from the original note were not included. Belgica Vega [address] [facility] [address] [place] [address] Visit Date: December 23, 2022 Mr.Jim Najma Ashton Date of : 1960 MRN/E #: [id number] History of Present Illness José Manuel Ashton [...] it.States sometimes takes trulicity.Patient to see new rollway man in [place] March 21, 2023. Pt indicates Janie Nieves in [place], he doesn't want to go to [place]. [...] 01/04/23. Per chart review patient to see [facility] December 29, 2022 Patient has history [...] of precordial pain, OTT, hypertension. Patient saw metal cabinet finisher October 13, 2022..Patient had stress test patient [...] spine, referred him to spine and pain [place].. Patient seeing pain management patient to see [...] MRI pelvis 08/11/21:Results MRI PELVIS WO/W IVCON (Acc#[id number]) (Order [id number]) Patient Info Patient Name Sex José Manuel Holm ([id number]) Male 1960 08/11/2021 5:06 PM - Radiology, Oru In Impression IMPRESSION: Suggestion of postoperative changes in the mid rectal wall. No tumor was identified on the preoperative exam, no suspicious lesion on this exam. No pelvic lymphadenopathy. Pt had pelvic xr 07/01/22: Results XR PELVIS 1V AP (Order [id number]) Patient Info Patient Name Sex José Manuel Holm ([id number]) Male 1960 07/01/2022 1:45 PM - Binh [...] quittin.7 Smokeless tobacco: Never Tobacco comments: Smokes [place] Vaping Use Vaping Use: Never used Substance [...] 8 hours as needed for nausea/vomiting. Insulin [place], Disposable, (COMFORT EZ PEN NEEDLES) 29 gauge x 1/2 1 Each once daily. 100 Each 3 [...] nervous/anxious. BP 153/91 Pulse 91 Ht 5' 10 (1.78m) Wt 253 lb (114.8kg) BMI 36.30 [...] to the nearest ED. documented in this encounterMain Campus Medical Center08-31-2023 History of Present illness Narrative* Dannie Kincaid Sr. Vendor Management Associate - 12/01/2022 10:00 AM EDT Lexiscan nuclear stress test completed. Patient verbalized understanding of test and pain scale. IVstarted by nursing staff prior to testing and removed by nursing staff at test end. documented in this encounterMain Campus Medical Center08-31-2023 Miscellaneous Notes* Addendum Note - Celena Rendon RN - 12/01/2022 9:00 AM EDTEncounter addended by: Celena Rendon RN on: 12/01/2022 11:21 AM Actions taken: Flowsheet accepted, MAR administration accepted documented in this encounterMain Campus Medical Center08-24-2023 History of Present illness Narrative* Jen Bergman, LEATHA - 11/24/2022 3:32 PM EDT PRIMARY CARE COORDINATION FOLLOW-UP NOTE Patient identified by name and date of . NO Summary: PCC attempted routine f/u call to pt - not able to leave a ms. [...] Weight mgmt/activity No change (09/23/2020) Concerns: N/A Soil Conservationist plan for next outreach: Will follow up in about a month. Signature Jen Bergman RN November 24, 2022 documented in this encounterMain Campus Medical Center08-16-2023 Miscellaneous Notes* Telephone Encounter - Liyah Lora [...] with any information. Was Patient Referred to [facility]/Seek Emergency Treatment (Y/N): N Did Patient Agree (Y/N): N/A Was An Attempt Made To Transfer The Patient To The Office (Y/N): N Were You Able To Reach Someone At The Office (Y/N): N/A If Yes - Patient Was Transferred To (Caregivers Name): N/A If No - Which [facility] Leadership Grab Setter Did You Speak With Regarding This Patient: N/A Was an appointment scheduled (Y/N): N Reason patient was requesting visit (RFV/signs and symptoms/diagnosis) : Medication Refill Request Person calling if other than patient: Self Return call to if other than patient: Self Best contact number: [phone] Thank you, Wilfredo Gabbie November 14, 2022 1:56 PM documented in this encounterMain Campus Medical Center08-10-2023 Miscellaneous Notes* Telephone Encounter - Candice Braun MD - 11/10/2022 7:00 AM EDT Reviewed all notes and labs. 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 He is already an established patient in [facility] practice. Of note, he was a no-show in February 2022. Plan: Please refer patient back to [place] office to his original provider since he [...] 09, 2022 2:16 PM documented in this encounterMain Campus Medical Center08-07-2023 Miscellaneous Notes* Telephone Encounter - Griselda Mayfield - 11/07/2022 8:01 AM EDT Consult to Neurology Confirmation number: [id number] documented in this encounterMain Campus Medical Center08-04-2023 Miscellaneous Notes* Telephone Encounter - Kenya Marrero - 11/04/2022 4:15 PM EDT Confirmation number: [id number] Consult to Dermatology documented in this encounterMain Campus Medical Center08-04-2023 Miscellaneous Notes* Telephone Encounter - Kenya Marrero - 11/04/2022 3:20 PM EDT Confirmation number: [id number] Consult to Endocrinology documented in this encounterMain Campus Medical Center08-04-2023 History of Present illness Narrative* Belgica Vega DO - 11/04/2022 3:04 PM EDT Images from the original note were not included. Belgica Vega [address] [address] Visit Date: November 04, 2022 Mr.Jim Najma Ashton Date of : 1960 MRN/E #: [id number] History of Present Illness José Manuel Ashton [...] Pt didn't want to see derm in [place] or [place]. Wasn't referred to [place]. Patient does have history of diabetes and [...] Dr. Baig, doesn't want to go to [place]. Patient has history of rectal cancer. Patient is status post colonoscopy October 24, [address] Ahmadi.Number of precancerous polyps were found on this examination and we shouldrepeat the colonoscopy in 1 year. Artem Ahmadi MD October 28, 2022 10:05 AM Patient has history of precordial pain, OTT, hypertension. Patient saw metal cabinet finisher October 13, 2022. Lexiscan nuclear stress test has been ordered. Per note patient was asked to get referral for rollway man and dietitian to aggressively get his diabetes [...] quittin.5 Smokeless tobacco: Never Tobacco comments: Smokes [place] Vaping Use Vaping Use: Never used Substance [...] DAILY (6 AM). 30 tablet 2 Insulin [place], Disposable, (COMFORT EZ PEN NEEDLES) 29 gauge x 1/2 1 Each once daily. 100 Each 3 [...] nervous/anxious. BP 142/82 Pulse 99 Ht 5' 10 (1.78m) Wt 259 lb (117.5kg) BMI 37.16 [...] Monocytes % 11/01/2022 8.1 % Final Abs Dyer 11/01/2022 0.54 <0.87 k/uL Final Eosinophils % [...] Desk Reference: National Heart, Lung, and Blood [place]. National Institutes of Health. 2001: NIH Publication [...] (H) 74 - 99 mg/dL Final The [place] Diabetes Association (ADA) provides guidance for cutoff [...] Standards of Medical Care in Diabetes 2016, [place] Diabetes Association. Diabetes Care. 2016.39(Suppl 1). BUN [...] 13.6 (H) 4.3 - 5.6 % Final [place] Diabetes Association guidelines indicate that patients with HgbA1c in the range 5.7-6.4% are at increased risk for development of diabetes, and intervention by lifestyle modification may be beneficial. HgbA1c greater or equal to 6.5% is considered diagnostic of diabetes. Estimated Average Glucose 11/01/2022 344 mg/dL Final eAG: (Estimated average glucose) is a calculated value from HgbA1c and is hospital sales representative of the average blood glucose level [...] to the nearest ED. documented in this encounterMain Campus Medical Center08-02-2023 Miscellaneous Notes* Telephone Encounter - Belgica Vega DO - 11/02/2022 7:44 PM EDT Please notify patient received lab, low-fat low-cholesterol diet recommended. Low-carb low concentrated sweets diet recommended, A1c has increased to 13.6 Can discuss results at appointment Thank you, Belgica Vega D.O. 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 I spoke w/ pt this morning. He states that he doesn't feel good - feels sick. He feels weak. His stomach hurts. He hasn't eaten since Monday. Pt has a BARTHOLOMEW. States that he has back and groin pain. Expresses that he is frustrated. Pt is on his way to get labs drawn. He hasn't checked his BP. He's not checking his blood sugars. States that he is trying' to take his meds and shots. Admits that he didn't take any meds yesterday. He hasn't taking any meds yet this morning. He has an appointment on 11/04/22. Thanks. Jen Bergman RN documented in this encounterMain Campus Medical Center08-01-2023 History of Present illness Narrative* Jen Bergman RN - 11/01/2022 11:35 AM EDT PRIMARY CARE COORDINATION FOLLOW-UP NOTE Patient identified by name and date of . YES Spoke to patient Summary: PCC called pt for TCM f/u (D/C 09/16/22). Pt states that he's not real good today. He doesn't feelgood - feels sick. Pt feels weak. His stomach hurts. He hasn't eaten since Monday. Pt has a BARTHOLOMEW. States that he has back and groin pain. Expresses that he is frustrated. Comfort provided. Pt is on his way to get labs drawn. He hasn't checked his BP. He's not checking his blood sugars often. Per pt, he is trying' to take his meds and shots. Admits [...] Weight mgmt/activity No change (09/23/2020) Concerns: N/A Soil Conservationist plan for next 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 Signature Jen Bergman RN November 01, 2022 documented in this encounterMain Campus Medical Center07-14-2023 Miscellaneous Notes* Telephone Encounter - Belgica Vega [...] to notify PCP that lab orders . Can they be reordered? She is also inquiring if a referral to Neuro can be placed; would like patient to be evaluated. Please advise. Denia Anders LPN documented in this encounterMain Campus Medical Center07-13-2023 History of Present illness Narrative* Sukumar Toney [...] quittin.5 Smokeless tobacco: Never Tobacco comments: Smokes [place] Vaping Use Vaping Use: Never used Substance [...] tablet by mouth DAILY (6 AM). Insulin [place], Disposable, (COMFORT EZ PEN NEEDLES) 29 gauge x 1/2 1 Each once daily. blood sugar diagnostic [...] Cuff Size: Regular Adult) Pulse 90 Ht 5'10 (1.778 m) Wt 255 lb (115.7 kg) [...] to get a referral to see an rollway man and a dietitian to aggressively get his [...] accordingly. Sukumar Toney MD documented in this encounterMain Campus Medical Center07-13-2023 Nurse Note* Lulu Owen MA - 10/13/2022 9:37 AM EDT Patient has no cardiac complaints today. Lulu Owen CMA documented in this encounterMain Campus Medical Center07-12-2023 History of Present illness Narrative* Jen Bergman [...] Weight mgmt/activity No change (09/23/2020) Concerns: N/A Soil Conservationist plan for next 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 Signature Jen Bergman RN October 12, 2022 documented in this encounterMain Campus Medical Center07-10-2023 History of Present illness Narrative* Mark Godinez [...] quittin.5 Smokeless tobacco: Never Tobacco comments: Smokes [place] Vaping Use Vaping Use: Never used Substance [...] 8 hours as needed for nausea/vomiting. Insulin [place], Disposable, (COMFORT EZ PEN NEEDLES) 29 gauge x 1/2 1 Each once daily. blood sugar diagnostic (BLOOD GLUCOSE TEST) test strip 3x/day pantoprazole DR (PROTONIX) 40 mg tablet Take 1 tablet by mouth DAILY (6 AM). No current facility-administered medications for this visit. ALLERGIES: ALLERGIES Allergen Reactions Penicillins Unknown Pt states he thinks he had a reaction as a child PHYSICAL EXAMINATION: Resp 16 Ht 5' 10 (1.78m) Wt 254 lb (115.2kg) BMI 36.45 [...] which may represent strain or possibly myositis. Director Athletic: [facility] Transcribe Date/Time: Sep 01 2022 7:57A Dictated by : DOREEN GRAJEDA MD This examination was interpreted and the report reviewed and electronically signed by: DOREEN GRAJEDA MD on Sep 01 2022 8:08AM EST Results-Findings * * *Final Report* * * DATE OF EXAM: Aug 30 2022 10:22AM [facility] 0168 - MRI ARTHROGRAM HIP LT / PROCEDURE REASON: multiple diagnoses * * * * Physician Interpretation * * * * LEFT HIP MRI ARTHROGRAM CLINICAL INDICATION: Left hip pain. Concern for labral tear or flexor tendon injury. COMPARISON: MRI left hip 09/09/2020 TECHNIQUE: Large umllj-lt-wlnp coronal T1, axial and coronal STIR sequences of the pelvis and both hips. Small ttqwq-yh-kryq coronal, sagittal and oblique axial fat saturated [...] labrum is limited due to the large ljtjw-oi-npje. Sacroiliac joints and symphysis pubis are maintained. [...] bleeding, clots, bleeding disorders. documented in this encounterMain Campus Medical Center07-03-2023 History of Present illness Narrative* Jen Bergman [...] Weight mgmt/activity No change (09/23/2020) Concerns: N/A Soil Conservationist plan for next outreach: Will follow up next wk. Chetan Bergman RN October 03, 2022 documented in this encounterMain Campus Medical Center06-29-2023 History of Present illness Narrative* Jen Bergman [...] Weight mgmt/activity No change (09/23/2020) Concerns: N/A Soil Conservationist plan for next outreach: Will follow up next wk. Chetan Bergman RN September 29, 2022 documented in this encounterMain Campus Medical Center06-28-2023 Miscellaneous Notes* Telephone Encounter - Kenya Marrero - 09/28/2022 12:22 PM EDT Confirmation number: [id number] Consult to Cardiology Confirmation number: [id number] Consult to Dermatology Confirmation number: [id number] Consult to Nephrology documented in this encounterMain Campus Medical Center06-28-2023 History of Present illness Narrative* Belgica Vega DO - 09/28/2022 11:06 AM EDT Transitional Care Management TCM Eligibility Documentation The following information was gathered during the initial Patient Outreach Encounter. Date of Outreach: 09/19/2022 Outreach Attempt 1: Contact Made Date of Discharge 09/16/2022 Some recent data might be hidden Summary Discharged from: [facility] Admit Date: September 14, 2022, [...] MRI lumbar spine:Results MRI LUMBAR SPINE WO IVCON (Acc#[id number]) (Order [id number]) Patient Info Patient Name Sex José Manuel Ashton ([id number]) Male 1960 09/15/2022 4:43 PM - Radiology, [...] Vitals BP 135/81 Pulse 101 Ht 5' 10 (1.78m) Wt 254 lb (115.2kg) BMI 36.45 [...] - DOXYCYCLINE HYCLATE 100 MG TABLET Belgica Vega, RTC 2 weeksFollow-up abscess right side, Medication follow-up, Diabetes, general surgery visit documented in this encounterMain Campus Medical Center06-23-2023 History of Present illness Narrative* Binh [place] [...] quittin.4 Smokeless tobacco: Never Tobacco comments: Smokes [place] Vaping Use Vaping Use: Never used Substance [...] 8 hours as needed for nausea/vomiting. Insulin [place], Disposable, (COMFORT EZ PEN NEEDLES) 29 gauge x 1/2 1 Each once daily. blood sugar diagnostic [...] as a child Resp 16 Ht 5' 10 (1.78m) Wt 254 lb (115.2kg) BMI 36.45 [...] needed. Binh Lake DO documented in this encounterMain Campus Medical Center06-16-2023 History of Present illness Narrative* Meera Contreras OD - 09/16/2022 2:21 PM EDT Assessment/Plan: [...] then stop STOP LEFT EYE drops Meera Contreras OD RTC 10/21/2022 final post op documented in this encounterMain Campus Medical Center06-16-2023 Instructions* Patient Instructions* Meera Contreras OD - 09/16/2022 2:19 PM EDT RIGHT EYE: Stop Ciprofloxacin (flores) Continue Ketorolac (rasmussen) and Prednisolone (pink) 3 times daily x 1 week then 2 times daily x 1 week then 1 time daily x 1 week then stop STOP LEFT EYE drops documented in this encounterMain Campus Medical Center06-08-2023 History of Past illness Narrative* Problem Noted Date Resolved Date Nuclear senile cataract of right eye 09/08/2022 09/08/2022 Nuclear sclerotic cataract of left eye 3 08/18/2022 Abdominal discomfort 01/18/2022 01/19/2022 Nuclear senile cataract of both eyes 11/05/2021 09/09/2022 Microscopic hematuria 03/08/2021 01/17/2022 Weakness 05/05/2020 06/15/2020 Decreased mobility and endurance 05/05/2020 06/15/2020 documented as of this encounter (statuses as of 09/16/2022) [facility] of Past illness Narrative* Problem Noted Date Resolved Date Nuclear senile cataract of right eye 09/08/2022 09/08/2022 Nuclear sclerotic cataract of left eye 3 08/18/2022 Abdominal discomfort 01/18/2022 01/19/2022 Nuclear senile cataract of both eyes 11/05/2021 09/09/2022 Microscopic hematuria 03/08/2021 01/17/2022 Weakness 05/05/2020 06/15/2020 Decreased mobility and endurance 05/05/2020 06/15/2020 documented as of this encounter (statuses as of 09/28/2022) [facility] of Past illness Narrative* Problem Noted Date Resolved Date Nuclear senile cataract of right eye 09/08/2022 09/08/2022 Nuclear sclerotic cataract of left eye 3 08/18/2022 Abdominal discomfort 01/18/2022 01/19/2022 Nuclear senile cataract of both eyes 11/05/2021 09/09/2022 Microscopic hematuria 03/08/2021 01/17/2022 Weakness 05/05/2020 06/15/2020 Decreased mobility and endurance 05/05/2020 06/15/2020 documented as of this encounter (statuses as of 09/28/2022) [facility] of Past illness Narrative* Problem Noted Date Resolved Date Nuclear senile cataract of right eye 09/08/2022 09/08/2022 Nuclear sclerotic cataract of left eye 3 08/18/2022 Abdominal discomfort 01/18/2022 01/19/2022 Nuclear senile cataract of both eyes 11/05/2021 09/09/2022 Microscopic hematuria 03/08/2021 01/17/2022 Weakness 05/05/2020 06/15/2020 Decreased mobility and endurance 05/05/2020 06/15/2020 documented as of this encounter (statuses as of 09/29/2022) [facility] of Past illness Narrative* Problem Noted Date Resolved Date Nuclear senile cataract of right eye 09/08/2022 09/08/2022 Nuclear sclerotic cataract of left eye 3 08/18/2022 Abdominal discomfort 01/18/2022 01/19/2022 Nuclear senile cataract of both eyes 11/05/2021 09/09/2022 Microscopic hematuria 03/08/2021 01/17/2022 Weakness 05/05/2020 06/15/2020 Decreased mobility and endurance 05/05/2020 06/15/2020 documented as of this encounter (statuses as of 09/30/2022) [facility] Past [facility] Narrative* Problem Noted Date Resolved Date Nuclear senile cataract of right eye 09/08/2022 09/08/2022 Nuclear sclerotic cataract of left eye 3 08/18/2022 Abdominal discomfort 01/18/2022 01/19/2022 Nuclear senile cataract of both eyes 11/05/2021 09/09/2022 Microscopic hematuria 03/08/2021 01/17/2022 Weakness 05/05/2020 06/15/2020 Decreased mobility and endurance 05/05/2020 06/15/2020 documented as of this encounter (statuses as of 10/04/2022) [facility] Narrative* Problem Noted Date Diagnosed Date Resolved Date Nuclear senile cataract of right eye 09/08/2022 09/08/2022 Nuclear sclerotic cataract of left eye 08/18/2022 08/18/2022 Abdominal discomfort 01/18/2022 022 Nuclear senile cataract of both eyes 11/05/2021 09/09/2022 Microscopic hematuria 03/08/20212021 Weakness 05/05/2020 06/15/2020 Decreased mobility and endurance 05/05/2020 06/15/2020 documented as of this encounter (statuses as of 10/11/2022) [facility] Narrative* Problem Noted Date Diagnosed Date Resolved Date Nuclear senile cataract of right eye 09/08/2022 09/08/2022 Nuclear sclerotic cataract of left eye 08/18/2022 08/18/2022 Abdominal discomfort 01/18/2022 022 Nuclear senile cataract of both eyes 11/05/2021 09/09/2022 Microscopic hematuria 03/08/20212021 Weakness 05/05/2020 06/15/2020 Decreased mobility and endurance 05/05/2020 06/15/2020 documented as of this encounter (statuses as of 10/13/2022) [facility] Narrative* Problem Noted Date Diagnosed Date Resolved Date Nuclear senile cataract of right eye 09/08/2022 09/08/2022 Nuclear sclerotic cataract of left eye 08/18/2022 08/18/2022 Abdominal discomfort 01/18/2022 022 Nuclear senile cataract of both eyes 11/05/2021 09/09/2022 Microscopic hematuria 03/08/20212021 Weakness 05/05/2020 06/15/2020 Decreased mobility and endurance 05/05/2020 06/15/2020 documented as of this encounter (statuses as of 10/13/2022) [facility] Narrative* Problem Noted Date Diagnosed Date Resolved Date Nuclear senile cataract of right eye 09/08/2022 09/08/2022 Nuclear sclerotic cataract of left eye 08/18/2022 08/18/2022 Abdominal discomfort 01/18/2022 022 Nuclear senile cataract of both eyes 11/05/2021 09/09/2022 Microscopic hematuria 03/08/20212021 Weakness 05/05/2020 06/15/2020 Decreased mobility and endurance 05/05/2020 06/15/2020 documented as of this encounter (statuses as of 10/15/2022) [facility] Narrative* Problem Noted Date Diagnosed Date Resolved Date Nuclear senile cataract of right eye 09/08/2022 09/08/2022 Nuclear sclerotic cataract of left eye 08/18/2022 08/18/2022 Abdominal discomfort 01/18/2022 022 Nuclear senile cataract of both eyes 11/05/2021 09/09/2022 Microscopic hematuria 03/08/20212021 Weakness 05/05/2020 06/15/2020 Decreased mobility and endurance 05/05/2020 06/15/2020 documented as of this encounter (statuses as of 11/01/2022) [facility] Narrative* Problem Noted Date Diagnosed Date Resolved Date Nuclear senile cataract of right eye 09/08/2022 09/08/2022 Nuclear sclerotic cataract of left eye 08/18/2022 08/18/2022 Abdominal discomfort 01/18/20222 022 Nuclear senile cataract of both eyes 11/05/2021 09/09/2022 Microscopic hematuria 03/08/20212021 Weakness 05/05/2020 06/15/2020 Decreased mobility and endurance 05/05/2020 06/15/2020 documented as of this encounter (statuses as of 11/02/2022) [facility] Narrative* Problem Noted Date Diagnosed Date Resolved Date Nuclear senile cataract of right eye 09/08/2022 09/08/2022 Nuclear sclerotic cataract of left eye 08/18/2022 08/18/2022 Abdominal discomfort 01/18/20222 022 Nuclear senile cataract of both eyes 11/05/2021 09/09/2022 Microscopic hematuria 03/08/20212021 Weakness 05/05/2020 06/15/2020 Decreased mobility and endurance 05/05/2020 06/15/2020 documented as of this encounter (statuses as of 11/03/2022) [facility] Narrative* Problem Noted Date Diagnosed Date Resolved Date Nuclear senile cataract of right eye 09/08/2022 09/08/2022 Nuclear sclerotic cataract of left eye 08/18/2022 08/18/2022 Abdominal discomfort 01/18/2022 022 Nuclear senile cataract of both eyes 11/05/2021 09/09/2022 Microscopic hematuria 03/08/20212021 Weakness 05/05/2020 06/15/2020 Decreased mobility and endurance 05/05/2020 06/15/2020 documented as of this encounter (statuses as of 11/03/2022) [facility] Narrative* Problem Noted Date Diagnosed Date Resolved Date Nuclear senile cataract of right eye 09/08/2022 09/08/2022 Nuclear sclerotic cataract of left eye 08/18/2022 08/18/2022 Abdominal discomfort 01/18/2022 022 Nuclear senile cataract of both eyes 11/05/2021 09/09/2022 Microscopic hematuria 03/08/20212021 Weakness 05/05/2020 06/15/2020 Decreased mobility and endurance 05/05/2020 06/15/2020 documented as of this encounter (statuses as of 11/04/2022) [facility] History of Past illness Narrative* Problem Noted Date Diagnosed Date Resolved Date Nuclear senile cataract of right eye 09/08/2022 09/08/2022 Nuclear sclerotic cataract of left eye 08/18/2022 08/18/2022 Abdominal discomfort 01/18/2022 022 Nuclear senile cataract of both eyes 11/05/2021 09/09/2022 Microscopic hematuria 03/08/20212021 Weakness 05/05/2020 06/15/2020 Decreased mobility and endurance 05/05/2020 06/15/2020 documented as of this encounter (statuses as of 11/05/2022) [facility] History of Past illness Narrative* Problem Noted Date Diagnosed Date Resolved Date Nuclear senile cataract of right eye 09/08/2022 09/08/2022 Nuclear sclerotic cataract of left eye 08/18/2022 08/18/2022 Abdominal discomfort 01/18/2022 022 Nuclear senile cataract of both eyes 11/05/2021 09/09/2022 Microscopic hematuria 03/08/20212021 Weakness 05/05/2020 06/15/2020 Decreased mobility and endurance 05/05/2020 06/15/2020 documented as of this encounter (statuses as of 11/05/2022) [facility] of Past illness Narrative* Problem Noted Date Diagnosed Date Resolved Date Nuclear senile cataract of right eye 09/08/2022 09/08/2022 Nuclear sclerotic cataract of left eye 08/18/2022 08/18/2022 Abdominal discomfort 01/18/2022 022 Nuclear senile cataract of both eyes 11/05/2021 09/09/2022 Microscopic hematuria 03/08/20212021 Weakness 05/05/2020 06/15/2020 Decreased mobility and endurance 05/05/2020 06/15/2020 documented as of this encounter (statuses as of 11/07/2022) [facility] of Past illness Narrative* Problem Noted Date Diagnosed Date Resolved Date Nuclear senile cataract of right eye 09/08/2022 09/08/2022 Nuclear sclerotic cataract of left eye 08/18/2022 08/18/2022 Abdominal discomfort 01/18/2022 022 Nuclear senile cataract of both eyes 11/05/2021 09/09/2022 Microscopic hematuria 03/08/20212021 Weakness 05/05/2020 06/15/2020 Decreased mobility and endurance 05/05/2020 06/15/2020 documented as of this encounter (statuses as of 11/07/2022) [facility] of Past illness Narrative* Problem Noted Date Diagnosed Date Resolved Date Nuclear senile cataract of right eye 09/08/2022 09/08/2022 Nuclear sclerotic cataract of left eye 08/18/2022 08/18/2022 Abdominal discomfort 01/18/2022 022 Nuclear senile cataract of both eyes 11/05/2021 09/09/2022 Microscopic hematuria 03/08/20212021 Weakness 05/05/2020 06/15/2020 Decreased mobility and endurance 05/05/2020 06/15/2020 documented as of this encounter (statuses as of 11/10/2022) [facility] Past illness Narrative* Problem Noted Date Diagnosed Date Resolved Date Nuclear senile cataract of right eye 09/08/2022 09/08/2022 Nuclear sclerotic cataract of left eye 08/18/2022 08/18/2022 Abdominal discomfort 01/18/2022 022 Nuclear senile cataract of both eyes 11/05/2021 09/09/2022 Microscopic hematuria 03/08/20212021 Weakness 05/05/2020 06/15/2020 Decreased mobility and endurance 05/05/2020 06/15/2020 documented as of this encounter (statuses as of 11/16/2022) [facility] Past illness Narrative* Problem Noted Date Diagnosed Date Resolved Date Nuclear senile cataract of right eye 09/08/2022 09/08/2022 Nuclear sclerotic cataract of left eye 08/18/2022 08/18/2022 Abdominal discomfort 01/18/2022 022 Nuclear senile cataract of both eyes 11/05/2021 09/09/2022 Microscopic hematuria 03/08/20212021 Weakness 05/05/2020 06/15/2020 Decreased mobility and endurance 05/05/2020 06/15/2020 documented as of this encounter (statuses as of 11/22/2022) [facility] Past illness Narrative* Problem Noted Date Diagnosed Date Resolved Date Nuclear senile cataract of right eye 09/08/2022 09/08/2022 Nuclear sclerotic cataract of left eye 08/18/2022 08/18/2022 Abdominal discomfort 01/18/2022 022 Nuclear senile cataract of both eyes 11/05/2021 09/09/2022 Microscopic hematuria 03/08/20212021 Weakness 05/05/2020 06/15/2020 Decreased mobility and endurance 05/05/2020 06/15/2020 documented as of this encounter (statuses as of 11/25/2022) [facility] Past illness Narrative* Problem Noted Date Diagnosed Date Resolved Date Nuclear senile cataract of right eye 09/08/2022 09/08/2022 Nuclear sclerotic cataract of left eye 08/18/2022 08/18/2022 Abdominal discomfort 01/18/2022 022 Nuclear senile cataract of both eyes 11/05/2021 09/09/2022 Microscopic hematuria 03/08/20212021 Weakness 05/05/2020 06/15/2020 Decreased mobility and endurance 05/05/2020 06/15/2020 documented as of this encounter (statuses as of 2022) [facility] illness Narrative* Problem Noted Date Diagnosed Date Resolved Date Nuclear senile cataract of right eye 09/08/2022 09/08/2022 Nuclear sclerotic cataract of left eye 08/18/2022 08/18/2022 Abdominal discomfort 01/18/2022 022 Nuclear senile cataract of both eyes 11/05/2021 09/09/2022 Microscopic hematuria 03/08/20212021 Weakness 05/05/2020 06/15/2020 Decreased mobility and endurance 05/05/2020 06/15/2020 documented as of this encounter (statuses as of 2022) [facility] of Past illness Narrative* Problem Noted Date Diagnosed Date Resolved Date Nuclear senile cataract of right eye 09/08/2022 09/08/2022 Nuclear sclerotic cataract of left eye 08/18/2022 08/18/2022 Abdominal discomfort 01/18/2022 022 Nuclear senile cataract of both eyes 11/05/2021 09/09/2022 Microscopic hematuria 03/08/20212021 Weakness 05/05/2020 06/15/2020 Decreased mobility and endurance 05/05/2020 06/15/2020 documented as of this encounter (statuses as of 12/24/2022) [facility] Past illness Narrative* Problem Noted Date Diagnosed Date Resolved Date Nuclear senile cataract of right eye 09/08/2022 09/08/2022 Nuclear sclerotic cataract of left eye 08/18/2022 08/18/2022 Abdominal discomfort 01/18/2022 022 Nuclear senile cataract of both eyes 11/05/2021 09/09/2022 Microscopic hematuria 03/08/20212021 Weakness 05/05/2020 06/15/2020 Decreased mobility and endurance 05/05/2020 06/15/2020 documented as of this encounter (statuses as of 12/24/2022) [facility] of Past illness Narrative* Problem Noted Date Diagnosed Date Resolved Date Nuclear senile cataract of right eye 09/08/2022 09/08/2022 Nuclear sclerotic cataract of left eye 08/18/2022 08/18/2022 Abdominal discomfort 01/18/2022 022 Nuclear senile cataract of both eyes 11/05/2021 09/09/2022 Microscopic hematuria 03/08/20212021 Weakness 05/05/2020 06/15/2020 Decreased mobility and endurance 05/05/2020 06/15/2020 documented as of this encounter (statuses as of 01/07/2023) [facility] of Past illness Narrative* Problem Noted Date Diagnosed Date Resolved Date Nuclear senile cataract of right eye 09/08/2022 09/08/2022 Nuclear sclerotic cataract of left eye 08/18/2022 08/18/2022 Abdominal discomfort 01/18/2022 022 Nuclear senile cataract of both eyes 11/05/2021 09/09/2022 Microscopic hematuria 03/08/20212021 Weakness 05/05/2020 06/15/2020 Decreased mobility and endurance 05/05/2020 06/15/2020 documented as of this encounter (statuses as of 01/24/2023) [facility] Past illness Narrative* Problem Noted Date Diagnosed Date Resolved Date Nuclear senile cataract of right eye 09/08/2022 09/08/2022 Nuclear sclerotic cataract of left eye 08/18/2022 08/18/2022 Abdominal discomfort 01/18/2022 022 Nuclear senile cataract of both eyes 11/05/2021 09/09/2022 Microscopic hematuria 03/08/20212021 Weakness 05/05/2020 06/15/2020 Decreased mobility and endurance 05/05/2020 06/15/2020 documented as of this encounter (statuses as of 01/27/2023) [facility] of Past illness Narrative* Problem Noted Date Diagnosed Date Resolved Date Nuclear senile cataract of right eye 09/08/2022 09/08/2022 Nuclear sclerotic cataract of left eye 08/18/2022 08/18/2022 Abdominal discomfort 01/18/2022 022 Nuclear senile cataract of both eyes 11/05/2021 09/09/2022 Microscopic hematuria 03/08/20212021 Weakness 05/05/2020 06/15/2020 Decreased mobility and endurance 05/05/2020 06/15/2020 documented as of this encounter (statuses as of 03/07/2023) [facility] of Past illness Narrative* Problem Noted Date Diagnosed Date Resolved Date Nuclear senile cataract of right eye 09/08/2022 09/08/2022 Nuclear sclerotic cataract of left eye 08/18/2022 08/18/2022 Abdominal discomfort 01/18/2022 022 Nuclear senile cataract of both eyes 11/05/2021 09/09/2022 Microscopic hematuria 03/08/20212021 Weakness 05/05/2020 06/15/2020 Decreased mobility and endurance 05/05/2020 06/15/2020 documented as of this encounter (statuses as of 05/12/2023) [facility] of Past illness Narrative* Problem Noted Date Diagnosed Date Resolved Date Nuclear senile cataract of right eye 09/08/2022 09/08/2022 Nuclear sclerotic cataract of left eye 08/18/2022 08/18/2022 Abdominal discomfort 01/18/2022 022 Nuclear senile cataract of both eyes 11/05/2021 09/09/2022 Microscopic hematuria 03/08/20212021 Weakness 05/05/2020 06/15/2020 Decreased mobility and endurance 05/05/2020 06/15/2020 documented as of this encounter (statuses as of 05/19/2023) [facility] of Past illness Narrative* Problem Noted Date Diagnosed Date Resolved Date Nuclear senile cataract of right eye 09/08/2022 09/08/2022 Nuclear sclerotic cataract of left eye 08/18/2022 08/18/2022 Abdominal discomfort 01/18/2022 022 Nuclear senile cataract of both eyes 11/05/2021 09/09/2022 Microscopic hematuria 03/08/20212021 Weakness 05/05/2020 06/15/2020 Decreased mobility and endurance 05/05/2020 06/15/2020 documented as of this encounter (statuses as of 05/23/2023) [facility] of Past illness Narrative* Problem Noted Date Diagnosed Date Resolved Date Nuclear senile cataract of right eye 09/08/2022 09/08/2022 Nuclear sclerotic cataract of left eye 08/18/2022 08/18/2022 Abdominal discomfort 01/18/2022 022 Nuclear senile cataract of both eyes 11/05/2021 09/09/2022 Microscopic hematuria 03/08/20212021 Weakness 05/05/2020 06/15/2020 Decreased mobility and endurance 05/05/2020 06/15/2020 documented as of this encounter (statuses as of 05/23/2023) [facility] Miscellaneous Notes* Telephone Encounter - Simeon Vásquez - 09/05/2022 10:03 AM EDT Called and informed patient to arrive at [address] [place] [address], [place] [address] at 11:45 am for 09/08/22 surgerywith Renetta Meza MD. Explained that patient is not to arrive any earlier. Also reminded patient to refrain from eating or drinking for 8 hours prior to arrival for surgery, except for up to 12 oz of clear liquids up until 09:45 am, and to begin eyedrops in the right eye on09/06/22. Informed that [employer] and text messages do not contact them with the arrival time for surgery. If they receive a message from [employer], or a text to confirm an appointment, they are to make sure of the date for the appointment. Patient's sister states understanding and is agreeable. documented [facility] History of Present illness Narrative* Binh Lake, DO - 09/02/2022 1:31 PM EDT HPI: José Manuel Ashton is a 61 year old male who presents today follow-up of left hip pain and MRI results. He continues to be in intense pain. He is in pain 24/. The pain is in his low back [...] quittin.4 Smokeless tobacco: Never Tobacco comments: Smokes [place] Vaping Use Vaping Use: Never used Substance [...] 8 hours as needed for nausea/vomiting. Insulin [place], Disposable, (COMFORT EZ PEN NEEDLES) 29 gauge x 1/2 1 Each once daily. blood sugar diagnostic [...] clots, bleeding disorders. Resp 20 Ht 5' 10 (1.78m) Wt 254 lb (115.2kg) BMI 36.45 [...] him to see the spine and pain [place] to discuss possible medications to help his intense chronic pain. I did give him 1 week of Percocet to try to help this pain. Total of half hour spent with this patient of which greater than 50% time spent in direct patient contact and coordination of care. Binh Lake DO documented in this encounterMain [facility] History of Present illness Narrative* [place], RT(R) - 08/30/2022 8:20 AM EDT Radiology [...] 30, 2022 10:19 AM documented in this encounterMain [facility] Center05-[facility]23 Surgical operation note* Brief Op Note - Lamonte Curtis MD, - 08/30/2022 8:17 AM EDT S/p successful left hip injection for magnetic resonance arthrogram. EBL < 1 cc. No immediate complication. documented in this encounterMain [facility] Center05-[facility] History of Past illness Narrative* Problem Noted Date Resolved Date Nuclear sclerotic cataract of left eye 3 08/18/2022 Abdominal discomfort 01/18/2022 01/19/2022 Microscopic hematuria 03/08/2021 01/17/2022 Weakness 05/05/2020 06/15/2020 Decreased mobility and endurance 05/05/2020 06/15/2020 documented as of this encounter (statuses as of 08/31/2022) [facility] of Past illness Narrative* Problem Noted Date Resolved Date Nuclear sclerotic cataract of left eye 3 08/18/2022 Abdominal discomfort 01/18/2022 01/19/2022 Microscopic hematuria 03/08/2021 01/17/2022 Weakness 05/05/2020 06/15/2020 Decreased mobility and endurance 05/05/2020 06/15/2020 documented as of this encounter (statuses as of 08/31/2022) [facility] of Past illness Narrative* Problem Noted Date Resolved Date Nuclear sclerotic cataract of left eye 3 08/18/2022 Abdominal discomfort 01/18/2022 01/19/2022 Microscopic hematuria 03/08/2021 01/17/2022 Weakness 05/05/2020 06/15/2020 Decreased mobility and endurance 05/05/2020 06/15/2020 documented as of this encounter (statuses as of 08/31/2022) [facility] of Past illness Narrative* Problem Noted Date Resolved Date Nuclear sclerotic cataract of left eye 3 08/18/2022 Abdominal discomfort 01/18/2022 01/19/2022 Microscopic hematuria 03/08/2021 01/17/2022 Weakness 05/05/2020 06/15/2020 Decreased mobility and endurance 05/05/2020 06/15/2020 documented as of this encounter (statuses as of 09/02/2022) [facility] of Past illness Narrative* Problem Noted Date Resolved Date Nuclear sclerotic cataract of left eye 3 08/18/2022 Abdominal discomfort 01/18/2022 01/19/2022 Microscopic hematuria 03/08/2021 01/17/2022 Weakness 05/05/2020 06/15/2020 Decreased mobility and endurance 05/05/2020 06/15/2020 documented as of this encounter (statuses as of 09/02/2022) [facility] of Past illness Narrative* Problem Noted Date Resolved Date Nuclear sclerotic cataract of left eye 3 08/18/2022 Abdominal discomfort 01/18/2022 01/19/2022 Microscopic hematuria 03/08/2021 01/17/2022 Weakness 05/05/2020 06/15/2020 Decreased mobility and endurance 05/05/2020 06/15/2020 documented as of this encounter (statuses as of 09/05/2022) [facility] Miscellaneous Notes* Telephone Encounter - Meche Rowland - 08/15/2022 11:21 AM EDT Called and informed patient to arrive at [address] [place] [address] at 7:40 am for 08/18/22 surgery with Renetta Meza MD. Also reminded patient to refrain from eating or drinking for 8 hours prior to arrival for surgery, and to begin eyedrops in the left eye on 08/16/22. Patient states understanding and is agreeable. documented in this encounterMain [facility] Center05-12-[facility] History of Present illness Narrative* Belgica Vega, DO - 08/12/2022 3:46 PM EDT Images from the original note were not included. [facility] Belgica Vega [address] [place] [address] [facility] Visit Date: August 12, 2022 Mr.Jim Najma Ashton Date of : 1960 MRN/E #: [id number] SUBJECTIVE: José Manuel Ashton is a 61 [...] (A) 4.2 - 5.6 % Final Comment: Location:[facility], [address] [place] [address], [facility] Point of care (POC) Hemoglobin A1c (HGBA1C) [...] specific diabetes management situations: The POC device aws consultant provides a normal range of 4.2% to 6.5% for the HGBA1C POC test. However, the [place] Diabetes Association guidelines indicate that patients with [...] quittin.3 Smokeless tobacco: Never Tobacco comments: Smokes [place] Vaping Use Vaping Use: Never used Substance [...] DAILY (6 AM). 30 tablet 2 Insulin [place], Disposable, (COMFORT EZ PEN NEEDLES) 29 gauge x 1/2 1 Each once daily. 100 Each 3 [...] depression. BP 156/92 Pulse 98 Ht 5' 10 (1.78m) Wt 254 lb (115.2kg) BMI 36.45 [...] to the nearest ED. documented in this encounterMain [facility] Medical Center05-09-2023 Miscellaneous Notes* Telephone Encounter - Maria D Evgeny - 08/09/2022 1:13 PM EDT Called patient again, left voicemail that he has an appointment tomorrow at [address] at [address] [place] [address]. [address] office location and to call [phone] if unable to keep the appointment or if any questions. * Telephone Encounter - Maria D Pepper - 08/09/2022 9:50 AM EDT Attempted to call patient to remind him of eye measurement appointment tomorrow, 08/10/22 at 3:00pm in the [place] office location at [address] [place] [address]. No answer, and unable to leave message, voicemail box full. documented in this encounterMain Campus Medical Center04-27-2023 Miscellaneous Notes* Telephone Encounter - Meche Rowland - 07/28/2022 9:03 AM EDT Patient's sister Janell left message in surgery scheduling: Patient is sick and cannot come in todayfor IOL measurements (ascan). Called and spoke with Janell. Rescheduled appointment to 08/10/22 at 3pm. documented in this encounterMain Campus Medical Center04-26-2023 Miscellaneous Notes* Telephone Encounter - Meche Rowland - 07/27/2022 10:37 AM EDT Called and confirmed appointment for IOL measurements (ascan) on 07/28/22 at 1:[address] [place] [address], [address]. The pre op history and physical exam has been scheduled for 08/12/22. Advised patient to call us at [phone] if any questions or if unable to keep the appointment. documented in this encounterMain Campus Medical Center04-13-2023 Instructions* Patient Instructions* Renetta Meza MD - 07/14/2022 1:02 PM EDT Drops [...] the morning of surgery documented in this encounterMain Campus Medical Center04-13-2023 History of Present illness Narrative* Renetta Meza MD - 07/14/2022 12:58 PM EDT (E11.7501) Mild nonproliferative diabetic retinopathy of both eyes [...] patient was offered a [facility] at a [facility]. The surgeon/proceduralist and patient have discussed [...] NO Previous refractive surgery: NO Preferred office: [place] Intracameral phenylephrine and vigamox Special notes Brimonidine CALL JANELL [phone] (sister, contact) Drops for Surgery: Polytrim (clear/white) [...] if applicable, including the morning of surgery (H35.8162) Early dry stage nonexudative age-related macular degeneration of both eyes Comment: Mottling, no fluid Plan: Monitor RTC PEIOL OS then OD I have confirmed and edited as necessary the relevant ophthalmic history, ROS, and the neuro exam findings as obtained by others. I have seen and examined this patient. I have discussed the case and the management of this patient's care with the Resident/Fellow/Administrative Technician, if applicable. I also have reviewed and agree with the assessment and plan as stated above and agree with all of its relevant components. Renetta Meza MD July 14, 2022 1:02 PM documented in this encounterMain Campus Medical Center03-31-2023 History of Present illness Narrative* Binh Lake, [...] quittin.2 Smokeless tobacco: Never Tobacco comments: Smokes [place] Vaping Use Vaping Use: Never used Substance [...] 8 hours as needed for nausea/vomiting. Insulin [place], Disposable, (COMFORT EZ PEN NEEDLES) 29 gauge x 1/2 1 Each once daily. blood sugar diagnostic (BLOOD GLUCOSE TEST) test strip 3x/day pantoprazole DR (PROTONIX) 40 mg tablet Take 1 tablet by mouth DAILY (6 AM). No current facility-administered medications for this visit. ALLERGIES Allergen Reactions Penicillins Unknown Pt states he thinks he had a reaction as a child Resp 18 Ht 5' 10 (1.78m) Wt 260 lb (117.9kg) BMI 37.31 [...] bleeding, clots, bleeding disorders. documented in this encounterMain Campus Medical Center03-29-2023 History of Present illness Narrative* Belgica Vega DO - 06/29/2022 4:32 PM EDT Images from the original note were not included. Belgica Vega [address] [place] [address] Visit Date: June 29, 2022 Mr.Jim Najma Ashton Date of : 1960 MRN/E #: [id number] History of Present Illness José Manuel Ashton [...] quittin.2 Smokeless tobacco: Never Tobacco comments: Smokes [place] Vaping Use Vaping Use: Never used Substance [...] DAILY (6 AM). 30 tablet 2 Insulin [place], Disposable, (COMFORT EZ PEN NEEDLES) 29 gauge x 1/2 1 Each once daily. 100 Each 3 blood sugar diagnostic (BLOOD GLUCOSE TEST) test strip 3x/day 100 Strip 11 No current facility-administered medications for this visit. ROS BP 136/84 Pulse 92 Ht 5' 10 (1.78m) Wt 259 lb (117.5kg) BMI 37.16 [...] Desk Reference: National Heart, Lung, and Blood [place]. National Institutes of Health. 2001: NIH Publication [...] (A) 74 - 99 mg/dL Final The [place] Diabetes Association (ADA) provides guidance for cutoff [...] Standards of Medical Care in Diabetes 2016, [place] Diabetes Association. Diabetes Care. 2016.39(Suppl 1). BUN [...] units of vitamin D daily,Which is available [id number] - CHOLECALCIFEROL (VITAMIN D3) 1,250 MCG (50,000 [...] to the nearest ED. documented in this encounterMain Campus Medical Center03-28-2023 Miscellaneous Notes* Telephone Encounter - Belgica Vega DO - 06/28/2022 6:15 PM EDT This encounter was opened in error. documented in this encounterMain Campus Medical Center03-22-2023 History of Present illness Narrative* Juancho Todd, - 06/22/2022 7:18 AM EDT June 22, 2022 An order has been received for PAP titration study from Dr. Belgica Vega DO, A. Sleep Center Staff/Store Sales Leader Staff Orders. Visit prep complete - Please refer to the sleep study order (under procedures tab) for protocol details and special instructions. The sleep study is scheduled for 06/22/2022. Insurance: Payor: [facility] MEDICARE / Plan: [facility] DUAL COMPLETE HMO SNP / Product Type: Medicare / Payer/Plan Subscr Sex Relation Sub. Ins. ID Effective Group Num 1. [facility] MEDICARE * JOSÉ MANUEL ASHTON 1960 Male Self [id number] 04/03/22 [address] 2. MEDICAID [place] -* JOSÉ MANUEL ASHTON 1960 Male Self [id number] 11/04/21 [address] June 22, 2022 [...] AM, 06/22/2022 Brice Dixon documented in this encounterMain Campus Medical Center03-01-2023 History of Present illness Narrative* Rory Mendoza [...] one time a week. 4capsule 0 Insulin [place], Disposable, (COMFORT EZ PEN NEEDLES) 29 gauge x 1/2 1 Each once daily. 100 Each 3 [...] quittin.1 Smokeless tobacco: Never Tobacco comments: Smokes [place] Vaping Use Vaping Use: Never used Substance [...] kg (256 lb) Height: 177.8 cm (5' 10) Body mass index is 36.73 kg/m . [...] nonspecific lung nodules/densities. 6 mm sclerotic focus [id number] rib, indeterminate. - Order CT chest wo IV contrast. If CT chest is unremarkable, follow up in 6 months with lab work prior to visit. Call for questions or concerns. Rory Mendoza MD I spent a total of 40 minutes on the date of the service which included preparing to see the patient, [id number] patient care, completing clinical documentation, obtaining and/or reviewing separately obtained history, performing a medically appropriate examination, counseling and educating the pat ient/family/caregiver, ordering medications, tests, or procedures, independently interpreting results (not separately reported), communicating results to the patient/family/caregiver, and care coordination (not separately reported). documented in this encounterMain Campus Medical Center02-16-2023 Miscellaneous Notes* Telephone Encounter - Griselda Mayfield - 05/19/2022 8:56 AM EST Consult to Oncology Confirmation number: [id number] documented in this encounterMain Campus Medical Center02-15-2023 History of Present illness Narrative* Belgica Vega, DO - 05/18/2022 3:26 PM EST Images from the original note were not included. Belgica Vega [address] [facility] [address] [place] [address] Visit Date: May 18, 2022 Mr.Jim Najma Ashton Date of : 1960 MRN/E #: [id number] History of Present Illness José Manuel Ashton [...] also has history of microalbuminuria. Patientdid see chemical strength tester during January 2022. Per note indicates stage IIIa CKD presumed secondary to uncontrolled diabetes, uncontrolled hypertension and obstruction from BPH. Patient is not being prescr ibed medication by nephrology. Patient has history of hyperlipidemia. Cholesterol was 286 during September 2021 patient was prescribed Crestor 5 mg. Previously patient indicated he did not turkey picker Medication from the pharmacy. During last office visit which was a hospital discharge follow-up.. Patient had indicated previously he had did not know why he did not turkey picker the Crestor. That medication has since dropped off of his med list. Patient was being prescribed Lipitor 40 mg by hospitalist at [facility].Pt isnt taking lipitor or Crestor... Cholesterol was [...] being prescribed Pt was referred to social and political studies professor recently. Patient indicates he has troubles remembering [...] quittin.1 Smokeless tobacco: Never Tobacco comments: Smokes [place] Vaping Use Vaping Use: Never used Substance [...] mouth once daily. 90 tablet 3 Insulin [place], Disposable, (COMFORT EZ PEN NEEDLES) 29 gauge x 1/2 1 Each once daily. 100 Each 3 [...] loss. BP 134/85 Pulse 101 Ht 5' 10 (1.78m) Wt 256 lb (116.1kg) BMI 36.73 [...] (A) 74 - 99 mg/dL Final Comment: Location:[facility] [place], [address] [place] [address], [facility] The Accu-Chek Inform II glucose meter has [...] (A) 4.2 - 5.6 % Final Comment: Location:[facility], [address] [place] [address], [facility] Point of care (POC) Hemoglobin A1c (HGBA1C) [...] specific diabetes management situations: The POC device aws consultant provides a normal range of 4.2% to 6.5% for the HGBA1C POC test. However, the [place] Diabetes Association guidelines indicate that patients with [...] ICD10: R11.2 Persistent Patient informed of Wanda Vega DO Return in about 1 month (around 06/15/2022) for Visit for re-check, Medication follow-up, Diabetes, Hypertension., Lab Encourage patient to schedule annual physical During November 2022,During birthmonth to help prompt memory If symptoms persist, worsen, or no improvement, patient is to call 911 and/or go to the nearest ED. documented in this encounterMain Campus Medical Center02-08-2023 History of Present illness Narrative* Jen Bergman [...] Weight mgmt/activity No change (09/23/2020) Concerns: N/A Soil Conservationist plan for next 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 Signature Jen Bergman RN May 11, 2022 documented in this encounterMain Campus Medical Center02-03-2023 Miscellaneous Notes* Telephone Encounter - BRANDIE Wolfe - 05/06/2022 1:20 PM EST Thank you!! * Telephone Encounter - Renetta Meza MD - 05/06/2022 12:31 PM EST Mrx from 11/05/2021 updated to include add. Renetta Meza MD 05/06/2022 12:31 PM * Telephone Encounter - BRANDIE Wolfe - 05/05/2022 4:[address] Meza, I guess he has decided he wants a bifocal. Can you re finalize prescription with the add power. He is trying to order glasses. Let me know. Thanks, Manjula documented in this encounterMain Campus Medical Center02-01-2023 History of Present illness Narrative* Noé Kennedy [...] (no units) Date Value 03/28/2022 4+ Specific Cyril, Ur (no units) Date Value 03/28/2022 1.015 [...] 1 tablet by mouth once daily. Insulin [place], Disposable, (COMFORT EZ PEN NEEDLES) 29 gauge x 1/2 1 Each once daily. 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 Signature Jen Bergman RN April 26, 2022 documented in this encounterMain Campus Medical Center01-19-2023 History of Present illness Narrative* Jen Bergman [...] Weight mgmt/activity No change (09/23/2020) Concerns: N/A Soil Conservationist plan for next outreach: Will follow up next wk. Signature Jen Bergman RN April 21, 2022 documented in this encounterMain Campus Medical Center01-11-2023 History of Present illness Narrative* Belgica Vega DO - 04/13/2022 4:13 PM EST Transitional Care Management TCM Eligibility Documentation The following information was gathered during the initial Patient Outreach Encounter. Date of Outreach: 04/05/2022 Outreach Attempt 1: Contact Not Made Outreach Attempt 2: Contact Not Made Date of Discharge 04/01/2022 Some recent data might be hidden Summary Discharged from: [facility] Admit Date: March 28, 2022, discharge April 01, 2022 Admitted for: Hyperglycemia Belgica Vega DO Provider Documentation José Manuel [...] also has history of microalbuminuria. Patientdid see chemical strength tester during January 2022. Per note indicates stage [...] mg. Previously patient indicated he did not turkey picker Medication from the pharmacy. During last office visit which was a hospital discharge follow-up.. Patient had indicated previously he had did not know why he did not turkey picker the Crestor. That medication has since dropped off of his med list. Patient was being prescribed Lipitor 40 mg by hospitalist at [facility].Pt isnt taking lipitor or Crestor... Cholesterol was [...] med list Pt was referred to social and political studies professor recently. Patient indicates he has troubles remembering things. Patient indicates he brought his sister along to help remember things. Per sis, she doesn't want him to take all these pills, doesn't feel necessary. Pt uses [facility]. Review of Systems Constitutional: Negative for [...] Vitals BP 158/101 Pulse 98 Ht 5' 10 (1.78m) Wt 256 lb (116.1kg) BMI 36.73 [...] 13, 2022 4:13 PM documented in this encounterMain Campus Medical Center01-10-2023 History of Present illness Narrative* CHARLEY Bernabe - 04/12/2022 8:58 AM EST Provider Action / FYI PCP Action FYI Primary Care Social Work Assessment Date of Service: April 12, 2022 (Patient has been identified by name and date of ) Patient Name: José Manuel Ashton Referred by: Physician Patient Soil Conservationist: Jen Bergman RN Hand-In Received: Yes Reason [...] attempt to discuss with the patient. Social Cargo Service Agent: Meche Sanders (Sister) [phone] Caregiver Status: Patient is not a caregiver for another person. Marital Status: Single Parents: did not discuss Children: not responsible for minor children Siblings: Meche Sanders (Sister) [phone]; Marek Ashton (Brother) Emotional Support animals: none Stress: Lives with brother and tqtxtv-hz-yxk and needs to move to his own housing. Primary Language: Zimbabwean Ethnicity/Cultural identification: Not Confucianist Affiliation: did not disclose Gender Identity: Male Sexual Orientation: Straight (not lesbian or smith) Status (Including History of Combat Experience): None Living Arrangements: Home Resides with: Brother and Ulqkia-ca-Xge Issues or Concerns with Home Environment: Patient [...] housing, medical insurance Access Behavioral Health Provider: [facility]Ender Home Health Provider: none Community Services: none Employment/Employer: disabled Source of Income: [facility] Insurance Provider(s): Payor: MEDICARE / Plan: MEDICARE A AND B / Product Type: Medicare / Medication Adherence: I am convinced of the importance of my prescription medication:Agree mostly - 0 I worry that my prescription medication will do more harm than good to me:Disagree mostly - 0 I feel financially burdened by my she-ae-gcubjl expenses for my prescription medication:Disagree mostly -0 Patient is categorized as:low risk < 2 Patient Stated Goals: community resources [facility] Explained: N/A Summary: PCSW received [...] 12, 2022 TIME: 8:58 AM CONTACT #: [phone] documented in this encounterMain Campus Medical Center01-04-2023 History of Present illness Narrative* Jen Bergman RN - 04/06/2022 2:35 PM EST TRANSITIONAL CARE MANAGEMENT (TCM) COMMUNITY MONITORING PROGRAM - [place] SUMMARY: Contact made with patient: No - 2nd unsuccessful attempt - end outreach and close encounter Outreach ended * Jen Bergman RN - 04/05/2022 11:43 AM EST TRANSITIONAL CARE MANAGEMENT (TCM) COMMUNITY MONITORING PROGRAM - [place] Pt has a hospital f/u appointment on 04/13/22 at 3:40p SUMMARY: Pt discharged from [facility] on 04/01/22. RISK 27 Admitted for: REASON [...] TCM Home Visit Referral Source of Stratification: [facility] Admission Status: Discharged Readmission Risk Score: 27 JANELL Score: 7 Patient meets program referral criteria: No Patient does not qualify for High Risk TCM Home Visit program due to: Discharged home, does not meet program criteria Jen Bergman RN April 05, 2022 11:43 AM documented in this [facility]12-28-2022 Miscellaneous Notes* Telephone Encounter - Sissy Mayen - 03/30/2022 9:05 AM EST Primary care social work consult Auto-referred documented in this [facility]12-21-2022 Miscellaneous Notes* Telephone Encounter - Smaia Thomason LPN - 03/23/2022 10:51 AM EST ----- Message from Soren Byrd MD sent at 03/22/2022 5:20 PM EST ----- Please call patient and inform results. Vitamin D levels were low. Start taking Vitamin D3 2,000 international unit(s) daily, available w/oprescription. documented in this [facility]12-21-2022 Miscellaneous Notes* Telephone Encounter - Liyah Lora LPN - 03/23/2022 8:55 AM EST Call out to patient regarding message below but unable to leave a message d/t mailbox being full. Liyah Lora LPN ----- Message from Soern Byrd MD sent at 03/22/2022 5:20 PM EST ----- Please call patient and inform results. Vitamin D levels were low. Start taking Vitamin D3 2,000 international unit(s) daily, available w/oprescription. documented in this [facility]12-15-2022 History of Present illness Narrative* Jen Bergman RN - 03/17/2022 2:37 PM EST TRANSITION CARE MANAGEMENT (TCM) FOLLOW-UP NOTE Patient identified by name and date of : NO Summary: PCC attempted TCM f/u call ([facility] D/[facility] 02/15/22) - not able to leave a msg. Concerns: N/A Soil Conservationist plan for next outreach: Will follow up in about 3wks. Signature Jen Bergman RN March 17, 2022 documented in this encounterMain Campus Medical Center12-09-2022 History of Present illness Narrative* Jen Bergman RN - 03/11/2022 11:41 AM EST PRIMARY CARE COORDINATION FOLLOW-UP NOTE Patient identified by name and date of . NO Summary: PCC attempted to call pt for TCM f/u ([facility] 02/15/22) - not able to leave [...] Weight mgmt/activity No change (09/23/2020) Concerns: N/A Soil Conservationist plan for next outreach: Will follow up next wk. Signature Jen Bergman, RN March 11, 2022 documented in this encounterMain Campus Medical Center12-08-2022 Miscellaneous Notes* Telephone Encounter - Bunny Daniels - 03/10/2022 11:06 AM EST ----- Message from Saskia Ramirez sent at 03/10/2022 10:38 AM EST ----- Reason for the call/escalation: Harish with [facility] calling for updated medication list Was Patient Referred to [facility]/Seek Emergency Treatment (Y/N): no Did Patient Agree (Y/N): n/a Was An Attempt Made To Transfer The Patient To The Office (Y/N): no Were You Able To Reach Someone At The Office (Y/N): n/a If Yes - Patient Was Transferred To (Caregivers Name): n/a If No - Which [facility] Leadership Grab Setter Did You Speak With Regarding This Patient: n/a Was an appointment scheduled (Y/N): no Reason patient was requesting visit (RFV/signs and symptoms/diagnosis) : [facility] Person calling if other than patient: Harish Return call to if other than patient: Harish Best contact number: [phone] , fax# [phone] Thank you, Saskia Ramirez March 10, 2022 10:38 AM documented in this encounterMain Campus Medical Center11-29-2022 Miscellaneous Notes* Telephone Encounter - Griselda Mayfield - 03/01/2022 4:09 PM EST Consult to Endocrinology Confirmation number: [id number] documented in this encounterMain Campus Medical Center11-29-2022 History of Present illness Narrative* Belgica Vega DO - 03/01/2022 2:48 PM EST Images from the original note were not included. Belgica Brandon Je [address] [facility] [address] [place] [address] Visit Date: March 01, 2022 Mr.Jim Najma Ashton Date of : 1960 MRN/E #: [id number] History of Present Illness José Manuel Ashton is a 61 year old male. Patient presents to the clinic today for follow-up hypertension, diabetes HPI Pt here with faina Maciel. Patient has history of hypertension and lower extremity edema.. BP today 156/94. BP during last office visit exj119/85., Recheck 135/83. during January 2022. Patient was [...] Pt indicates doesn't want to go to [place].. Pt hasnt taken any DM meds x 4 days. Glucose was 170 on January 27, 2022. Patient does have history of CKD stage III AAA. Patient also has history of microalbuminuria. Patient did see chemical strength tester during January 2022. Per note indicates stage [...] 17, 2022, discharge January 20, 2022 from [facility].. Per note: REASON FOR HOSPITALIZATION: Risk of [...] mg. Previously patient indicated he did not turkey picker Medication from the pharmacy.. Patienthad indicated previously he had did not know why he did not turkey picker the Crestor. That medication has since dropped off of his med list. Patient is being prescribed Lipitor 40 mg by hospitalist at [facility].Pt isnt taking lipitor.. Cholesterol was 260 triglyceride [...] quittin.9 Smokeless tobacco: Never Tobacco comments: Smokes [place] Vaping Use Vaping Use: Never used Substance [...] mouth once daily. 90 tablet 3 Insulin [place], Disposable, (COMFORT EZ PEN NEEDLES) 29 gauge x 1/2 1 Each once daily. 100 Each 3 [...] nervous/anxious. BP 146/86 Pulse 96 Ht 5' 10 (1.78m) Wt 255 lb (115.7kg) BMI 36.59 [...] Urine 01/21/2022 Trace (A) Negative Final Specific Cyril, Ur 01/21/2022 >=1.030 (A) 1.005 - 1.030 [...] (A) 74 - 99 mg/dL Final Comment: Location:[facility], [address] [place] [address] The Accu-Chek Inform II glucose meter has [...] Desk Reference: National Heart, Lung, and Blood [place]. National Institutes of Health. 2001: NIH Publication [...] (A) 74 - 99 mg/dL Final Comment: Location:[facility], [address] [address] The Accu-Chek Inform II glucose meter has [...] (A) 74 - 99 mg/dL Final Comment: Location:[place] [address] The Accu-Chek Inform II glucose meter has [...] (A) 74 - 99 mg/dL Final Comment: Location:[place] [address] The Accu-Chek Inform II glucose meter has [...] (A) 74 - 99 mg/dL Final Comment: Location:[address], [place], [place], [address] The Accu-Chek Inform II glucose meter has [...] (A) 74 - 99 mg/dL Final The [place] Diabetes Association (ADA) provides guidance for cutoff [...] Standards of Medical Care in Diabetes 2016, [place] Diabetes Association. Diabetes Care. 2016.39(Suppl 1). BUN [...] (A) 74 - 99 mg/dL Final Comment: Location:[place] [address] The Accu-Chek Inform II glucose meter has [...] (A) 74 - 99 mg/dL Final Comment: Location:[address], [facility] The Accu-Chek Inform II glucose meter [...] (A) 74 - 99 mg/dL Final Comment: Location:[place] [address] The Accu-Chek Inform II glucose meter has [...] (A) 74 - 99 mg/dL Final Comment: Location:[place] [address] The Accu-Chek Inform II glucose meter has [...] (A) 74 - 99 mg/dL Final Comment: Location:[place] [address] The Accu-Chek Inform II glucose meter has [...] (A) 74 - 99 mg/dL Final Comment: Location:[place] [address] The Accu-Chek Inform II glucose meter has [...] 89 74 - 99 mg/dL Final Comment: Location:[place] [address] The Accu-Chek Inform II glucose meter has [...] (A) 74 - 99 mg/dL Final Comment: Location:[place] [address] The Accu-Chek Inform II glucose meter has [...] (A) 74 - 99 mg/dL Final Comment: Location:[place] [address] The Accu-Chek Inform II glucose meter has [...] (A) 74 - 99 mg/dL Final Comment: Location:[address], [facility] The Accu-Chek Inform II glucose meter [...] 76 74 - 99 mg/dL Final Comment: Location:[address], [facility] The Accu-Chek Inform II glucose meter [...] (A) 74 - 99 mg/dL Final Comment: Location:[place] [address] The Accu-Chek Inform II glucose meter has [...] (A) 74 - 99 mg/dL Final Comment: Location:[place] [address] The Accu-Chek Inform II glucose meter has [...] (A) 74 - 99 mg/dL Final Comment: Location:[place] [address] The Accu-Chek Inform II glucose meter has [...] 65 74 - 99 mg/dL Final Comment: Location:[place] [address] The Accu-Chek Inform II glucose meter has [...] 84 74 - 99 mg/dL Final Comment: Location:[place] [address] The Accu-Chek Inform II glucose meter has [...] (A) 74 - 99 mg/dL Final Comment: Location:[place] [address] The Accu-Chek Inform II glucose meter has [...] 95 74 - 99 mg/dL Final Comment: Location:[place] [address] The Accu-Chek Inform II glucose meter has [...] (A) 74 - 99 mg/dL Final The [place] Diabetes Association (ADA) provides guidance for cutoff [...] Standards of Medical Care in Diabetes 2016, [place] Diabetes Association. Diabetes Care. 2016.39(Suppl 1). BUN [...] (A) 74 - 99 mg/dL Final Comment: Location:[facility], [address] [place] [address], [facility] The Accu-Chek Inform II glucose meter [...] (A) 74 - 99 mg/dL Final Comment: Location:[facility], [address] [place] [address], [facility] The Accu-Chek Inform II glucose meter [...] (A) 74 - 99 mg/dL Final The [place] Diabetes Association (ADA) provides guidance for cutoff [...] Standards of Medical Care in Diabetes 2016, [place] Diabetes Association. Diabetes Care. 2016.39(Suppl 1). BUN [...] please visit the Change in Procalcitonin Calculator, [email or web address]. CRP 01/26/2022 0.3 <0.9 mg/dL Final Glucose, Point of Care 01/26/2022 159 (A) 74 - 99 mg/dL Final Comment: Location:[place] [address] The Accu-Chek Inform II glucose meter has [...] (A) 74 - 99 mg/dL Final Comment: Location:[place] [address] The Accu-Chek Inform II glucose meter has [...] (A) 74 - 99 mg/dL Final Comment: Location:[place] [address] The Accu-Chek Inform II glucose meter has [...] 73 74 - 99 mg/dL Final Comment: Location:[place] [address] The Accu-Chek Inform II glucose meter has [...] (A) 74 - 99 mg/dL Final Comment: Location:[place] [address] The Accu-Chek Inform II glucose meter has [...] to the nearest ED. documented in this encounterMain Campus Medical Center11-23-2022 Miscellaneous Notes* Telephone Encounter - Stephanie Walker - 02/23/2022 1:30 PM EST Tried to reach out to schedule colonoscopy screening and the voicemail was full and was unable to leave message. Stephanie Walker February 23, 2022 1:31 PM documented in this encounterMain Campus Medical Center11-21-2022 Miscellaneous Notes* Telephone Encounter - Emma Mari - 02/21/2022 4:56 PM EST No Show Documentation José Manuel Ashton no showed for an appointment on 02/21/2022 with Janie Pickett APRN.BARREL PAINTER at 3:00 pm. He was scheduled for [...] Yes Is this the Third or Fourth No Show? No Emma Mari February 21, 2022 4:57 PM documented in this encounterMain Campus Medical Center11-21-2022 History of Present illness Narrative* Jen Bergman RN - 02/21/2022 3:24 PM EST TRANSITIONAL CARE MANAGEMENT (TCM) COMMUNITY MONITORING PROGRAM - [place] SUMMARY: Pt discharged from [facility] on 02/15/22. Pt discharged from [facility] on 01/20/22. Admitted for: Hospital Problem List [...] and date of : YES Spoke to [facility] Summary: PCC called SNF re pt status. Pt was D/C'd on 02/15/22. Signature Jen Bergman RN February 21, 2022 documented in this encounterMain Campus Medical Center11-21-2022 History of Present illness Narrative* Janie Pickett APRN.BARREL PAINTER - 02/21/2022 11:29 AM EST Subjective Important [...] AST ALT Alkaline Phosphatase ok Moved from [place] at some point. Was taking actos plus Metformin. Eventually Primary Care Provider Added basal insulin. 10/2020: first time office visit with Janie Pickett APRN.BARREL PAINTER for diabetes management. Previous diabetes related labs [facility] reviewed prior to today's office visit. Any changes made at our last diabetes management visit were abstracted accordingly (if applicable). Today's Office Visit: Orals: Actos 45 mg daily, Metformin ER 500 mg 2 tabs at breakfast and dinner, Basal insulin (dosed in units) Supper dose: qevima31 Other: trulicity 1.5 mg, self monitoring blood glucose data: testing often times 2x/day, admits he won't [...] quittin.8 Smokeless tobacco: Never Tobacco comments: Smokes [place] Vaping Use Vaping Use: Never used Substance [...] tablets before breakfast and before supper Insulin [place], Disposable, (COMFORT EZ PEN NEEDLES) 29 gauge x 1/2 1 Each once daily. insulin glargine (LANTUS [...] this visit. Physical Exam documented in this encounterMain Campus Medical Center10-28-2022 History of Present illness Narrative* Jen Bergman RN - 01/28/2022 8:42 AM EDT TRANSITION CARE MANAGEMENT (TCM) DISCHARGE TO POST ACUTE FACILITY POST ACUTE TRANSFER SUMMARY: -Pt discharged from [facility] on 01/27/22. RISK 29 -Post Acute Facility Admitted to SNF. 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 Subjective Patient seen in his room sitting in wheelchair. He reports feeling ok today. Reports sleep was fine, appetite has [...] (Oral) Resp 17 Ht 177.8 cm (5' 10) Wt 115.7 kg (255 lb 0.3 oz) SpO2 95% BMI 36.59 kg/m? MENTAL STATUS EXAMINATION: Appearance: Appears stated age, casually dressed, disheveled hair, in wheelchair. Behavior: Calm, cooperative. Orientation: Person, Place, Time and Situation Speech/Language: More talkative today, with normal tone, volume, rate and syntax. Mood/Affect: ok / less restricted today, more conversant. Thought [...] yesterday) SIGNATURE: Sarah Ventura (more content not included)...[facility] 01-26-2022 NoteHNO ID: [id number] Author: Mimi Benton RN Service: ? Author Type: Registered Nurse Type: Progress Notes Filed: 01/26/2022 5:38 AM Note Text: Assumed care of patient at 1930. He is alert and oriented, pleasant and cooperative. Pleasantly social with staff and peers. Denies SI/HI/AVH. Cooperative with HS meds, then retired to bed after snack, where he appeared to sleep through the night without sign of distress.[facility] 01-25-2022 NoteHNO ID: [id number] Author: Brigitte Carlisle MD Service: Psychiatry Author [...] plan, per patient's request. Aim d/c to [facility] rehab facility within next few days. Luis Carlos Short Jr, MD January 25, 2022 12:55 PM PROGRESS NOTE BEHAVIORAL HEALTH SERVICE DATE: 01/25/2022 SERVICE TIME: 10:20 AM The Interdisciplinary team met and reviewed treatment goals and discharge planning. Subjective Patient seen in critical access hospital, disheveled hair and is sitting alone eating. Reports that he is doing ok today. Wanting the team to call his sister Janell and have her updated on the plan. Is ok with going to SNF as long as it is not the facility in [place]. Denies any issues with his medications. Feels that he is slowly improving. Does not report SI/AVH. Sister's number (Janell) [phone] Objective PHYSICAL EXAM: BP 134/70 Pulse 86 Temp 36.9 ?C (98.4 ?F) (Oral) Resp 15 Ht 177.8 cm (5' 10) Wt 115.7 kg (255 lb 0.3 oz) SpO2 95% BMI 36.59 kg/m? MENTAL STATUS EXAMINATION: Appearance: Appears stated age, in hospital gown, disheveled hair, in wheelchair sitting at table in common area Behavior: Calm, cooperative, downward gaze, eye contact minimal but improving Orientation: Person, Place, Time and Situation Speech/Language: Quiet, soft, low tone, minimal responses to questions. Mood/Affect: ok with restricted and withdrawn Thought Form: Coherent [...] and alternatives to the (more content not included)...[facility] 01-25-2022 NoteHNO ID: [id number] Author: Mimi Benton RN Service: ? Author [...] at 0600 was scanned twice at 0ml. [facility] [id number] NoteHNO ID: [id number] Author: Corky Rodarte MD Service: Urology Author [...] January 24, 2022 TIME: 6:36 PM PAGER: [address] [place], [place] [address]10-24-2022 NoteHNO ID: [id number] Author: Kylah Orantes MD Service: ? Author Type: Physician Type: Progress Notes Filed: 02/27/2022 8:27 PM Note Text: [facility] - General Progress Note JOSÉ MANUEL ASHTON : 1960 AGE: 61 SEX: M CSN: [id number] [facility]: [facility] LOCATION: [facility] DATE OF SERVICE: 01/24/2022 This is a [...] quittin.9 Smokeless tobacco: Never Tobacco comments: Smokes [place] Vaping Use Vaping Use: Never used Substance [...] reviewed and negative. [facility] Most recent images Reviewed [...] edema No goiter Kylah Orantes M.D. Internal MedicineMarietta Osteopathic [id number] NoteHNO ID: [id number] Author: Sarah Noguera DO Service: Psychiatry Author [...] Encouraging that patient willing to participate in intermediate rehab care upon discharge. Optimize antidepressant and anxiolytic (venlafaxine) and augmenting with mood stabilizer (Depakote). Aim d/c by end week to SNF near [facility] in [place], [place]. Luis Carlos Short Jr, MD January 24, 2022 4:37 PM PROGRESS NOTE BEHAVIORAL HEALTH SERVICE DATE: 01/24/2022 SERVICE TIME: 10:45AM The Interdisciplinary team met and reviewed treatment goals and discharge planning. Subjective Patient seen in common area. Reports he is hanging in there and endorses anxiety, with stressors being his chronic pain and being in the hospital. Notes poor sleep overnight, appetite is fine. When asked what has improved since being in hospital, he notes his sugars are better. He says I don't know when asked if his mental health is [...] ?F) Resp 18 Ht 177.8 cm (5' 10) Wt 115.7 kg (255 lb 0.3 oz) SpO2 96% BMI 36.59 kg/m? MENTAL STATUS EXAMINATION: Appearance: Appears stated age, in hospital gown, in wheelchair sitting at table in common area Behavior: Calm, cooperative, downward gaze, minimal eye contact. Orientation: Person, Place, Time and Situation Speech/Language: Quiet, soft, low tone, minimal responses to questions. Mood/Affect: hanging in there, anxious with restricted, withdrawn, and depressed affect Thought [...] GAF: -40-31 Some impairm (more content not included)...[facility] 01-24-2022 NoteHNO ID: [id number] Author: Domingo Lopez RN Service: Nursing Author Type: Registered Nurse Type: Nursing Progress Note Filed: 01/24/2022 6:01 AM Note Text: 2300 - 0730: 0000: pt observed asleep in bed. 0600: pt slept approximately 7 hours.[facility] ClinicOyngxzdg11-15-8171 NoteHNO ID: [id number] Author: Corky Rodarte MD Service: Urology Author [...] January 23, 2022 TIME: 2:30 PM PAGER: [id number] ClinicFtmxwdwa88-12-0656 NoteHNO ID: [id number] Author: Kylah Orantes MD Service: ? Author Type: Physician Type: Progress Notes Filed: 02/25/2022 12:30 AM Note Text: [facility] Progress Note JOSÉ MANUEL ASHTON : 1960 AGE: 61 SEX: M CSN: [id number] [facility]: [facility] LOCATION: 6002 DATE OF SERVICE: 01/23/2022 This [...] quittin.9 Smokeless tobacco: Never Tobacco comments: Smokes [place] Vaping Use Vaping Use: Never used Substance [...] OF RECTAL TUMOR, TRANSANAL 11/24/2020 Dr. Brandstetter R.O.S negative other than HPI AND PMH [...] edema No goiter Kylah Orantes M.D. Internal MedicineMarietta Osteopathic [id number] NoteHNO ID: [id number] Author: Kylah Orantes MD Service: ? Author Type: Physician Type: Progress Notes Filed: 02/20/2022 8:03 PM Note Text: [facility] - General Progress Note JOSÉ MANUEL ASHTON : 1960 AGE: 61 SEX: M CSN: [id number] [facility]: [facility] LOCATION: [facility] DATE OF SERVICE: 01/22/2022 This is a [...] quittin.8 Smokeless tobacco: Never Tobacco comments: Smokes [place] Vaping Use Vaping Use: Never used Substance [...] edema No goiter Kylah Orantes M.D. Internal MedicineMarietta Osteopathic ClinicRctikcea99-70-5455 NoteHNO ID: [id number] Author: Miriam Jennings APRN.BARREL PAINTER Service: Psychiatry Author Type: Nurse Practitioner Type: [...] HI, AH, or VH. He does acknowledge anger issues. Tolerating oral medications and agreeable to titration of mood stabilizer and antidepressant. Somewhat discharge focused and states he will feel better once he is able to leave the hospital. Objective PHYSICAL EXAM: BP 135/78 Pulse 89 Temp 36.7 ?C (98.1 ?F) (Oral) Resp 18 Ht 177.8 cm (5' 10) Wt 115.7 kg (255 lb 0.3 oz) SpO2 97% BMI 36.59 kg/m? MENTAL STATUS EXAMINATION: Appearance: Disheveled Behavior: calm, cooperative Orientation: Person, Place, Time and Situation Speech/Language: The patient demonstrates appropriate tone, prosody, melody, phonetics, and syntax Mood/Affect: okay / restricted Thought Form: Coherent Thought Content: [...] moderate Imminent Physical Self (more content not included)...[facility] [id number] NoteHNO ID: [id number] Author: Mimi Benton RN Service: ? Author Type: Registered Nurse Type: Progress Notes Filed: 01/21/2022 5:31 AM Note Text: Assumed care of patient at 1999. He is alert and oriented, passively cooperative. Denies SI/HI. Cooperative with medications, and appeared to sleep through the night without distress.[facility] ClinicMzitldas00-08-1564 NoteHNO ID: [id number] Author: Chele Mcginnis RN Service: Nursing Author [...] behavior Target Date Short Term Goals: 01/27/22 Retirement Goals: Patient will demonstrate optimal level of functioning;Patient/support system will verbalize intent to comply with medication and treatment after discharge Target Date Rehabilitation Medicine Physician Goals: 01/27/22 Interventions - Nursing: Obtain baseline [...] Term Goals: Refrain from self injurious behavior Rehabilitation Medicine Physician Goals: Identify positive alternatives to self-injurious behavior [...] Ashton DATE: January 20, 2022 TIME: 5:48 [facility]10-20-2022 NoteHNO ID: [id number] Author: Teresa Diego APRN.BARREL PAINTER Service: Hospital Medicine Author Type: Nurse Practitioner [...] Assessment AND Plan: - Referred by OP chemical strength tester Dr Kennedy for concern of worsening depression [...] (HCC) POA: Yes Assessment AND Plan: - Principal Archaeologist 1.1, 1.3 at baseline. - Limits nephrotoxins and trend daily labs. Abdominal pain - Resolved, tolerating diet. - CT AP non acute - ADAT, continue bowel regimen. Dispo: Patient medically stable to transfer to unit, [address] Orantes will continue to follow along. Discussed with intake and Dr Olivas, patient accepted to N. Teresa Diego, MSN, BARREL PAINTER [facility] 01/2022 10:30am For inpatients: I spent 25 minutes in the visit, with more than 50% of the total bfep-gl-fqkb time of the visit in counseling / coordination of care. [facility] ClinicNnzwfirp44-24-0814 NoteHNO ID: [id number] Author: Kylah Orantes MD Service: ? Author Type: Physician Type: Progress Notes Filed: 01/24/2022 9:34 PM Note Text: [facility] - General Progress Note JOSÉ MANUEL ASHTON : 1960 AGE: 61 SEX: M CSN: [id number] [facility]: [facility] LOCATION: [facility] ATTENDING PHYSICIAN: LUIS CARLOS SHORT JR [...] follow up. Kylah Orantes M.D. Internal Medicine BARTHOLOMEW:[id number] [id number] NoteHNO ID: [id number] Author: Rafal Carroll PA-C Service: Psychiatry Author Type: Physician Vehicle Washer Type: Plan of Care Filed: 01/20/2022 10:42 AM Note Text: PLAN OF CARE Patient referred to [facility] on 01/19 for voluntary admission given concerns for his depression to be affecting his quality of life and his ability to care for himself. Per primary team, patient is medically ready as of 01/19/2022. Per [facility], 01/20/22 @0815, Pt presented [to Dr. Hoffman], depression appears to be secondary to medical needs, wants to review chart and will make recommendations after that. Will call back after that should be after 2pm. Received a call from ASSOCIATE SOFTWARE DEVELOPER Teresa Diego with concerns for delayed transfer, [...] Olivas @10:35AM, patient will be transferred to [address] [place], [place] [address]2010-20-2022 NoteHNO ID: [id number] Author: Kylah Orantes MD Service: ? Author Type: Physician Type: Progress Notes Filed: 01/19/2022 10:43 PM Note Text: [facility] - General Progress Note JOSÉ MANUEL ASHTON : 1960 AGE: 61 SEX: M CSN: [id number] [facility]: [facility]: [facility] ATTENDING PHYSICIAN: Kylah Orantes M.D. DATE OF [...] quittin.8 Smokeless tobacco: Never Tobacco comments: Smokes [place] Vaping Use Vaping Use: Never used Substance [...] 33 Units SUBCUTANEOUS AT BEDTIME Teresa Diego APRN.BARREL PAINTER 33 Units at 01/19/222207 atropine 0.5 mg injection 0.5 mg INTRAVENOUS PRN Radha Mack APRN.BARREL PAINTER NaCl 0.9% iv flush bag 20 mL INTRAVENOUS PRN Radha Mack APRN.BARREL PAINTER sodium chloride 0.9 % (flush) 3-5 mL (BD POSIFLUSH) 3-5 mL INTRAVENOUS q 12 H Radha Mack APRN.BARREL PAINTER 5 mL at 01/19/227 aluminum-magnesium hydroxide-simethicone 200-200-20 mg/5 mL 30 mL (MAALOX,MYLANTA,MAG-AL PLUS) 30 mL ORAL DAILY PRN Radha Mack APRN.BARREL PAINTER acetaminophen 650 mg tab(s) (TYLENOL) 650 mg ORAL q 6 H PRN Radha Mack APRN.BARREL PAINTER 650 mg at 01/18/22 0818 insulin lispro injection (rapid acting) (ADMELOG) SUBCUTANEOUS AT BEDTIME Radha Mack APRN.BARREL PAINTER 1 Units at 01/19/227 hydrALAZINE 10 mg injection (APRESOLINE) 10 mg INTRAVENOUS q 6 H PRN Radha Mack APRN.BARREL PAINTER lisinopril 20 mg tab(s) (ZESTRIL, PRINIVIL) 20 mg ORAL DAILY Radha Mack APRN.BARREL PAINTER 20 mg at 01/19/22 0848 tamsulosin 0.4 mg cap(s) (FLOMAX) 0.4 mg ORAL AT BEDTIME Radha Mack APRN.BARREL PAINTER 0.4 mg at 01/19/227 insulin lispro injection (rapid acting) (ADMELOG) SUBCUTANEOUS w MEALS Nusrat Nash APRN.BARREL PAINTER 15 Units at 01/19/22 1715 pioglitazone 45 mg tab(s) (ACTOS) 45 mg ORAL DAILY Nusrat Nash APRN.BARREL PAINTER 45 mg at 01/19/22 0848 docusate sodium 100 mg cap(s) (COLACE) 100 mg ORAL BID Nusrat Nash APRN.BARREL PAINTER 100 mg at 01/19/22 220 polyethylene glycol 3350 17 g packet (MIRALAX, GLYCOLAX) 17 g ORAL DAILY Nusrat Nash APRN.BARREL PAINTER 17 g at 01/18/22 1222 venlafaxine ER 37.5 mg cap(s) (EFFEXOR XR) 37.5 mg ORAL DAILY WITH BREAKFAST Rafal Carroll PA-C 37.5 mg at 01/19/22 0849 dextrose 40 % 15 g 15 g OR (more content not included)...[facility] 01-19-2022 NoteHNO ID: [id number] Author: Teresa Diego APRN.BARREL PAINTER Service: Hospital Medicine Author Type: Nurse Practitioner [...] (Oral) Resp 18 Ht 177.8 cm (5' 10) Wt 115.2 kg (254 lb 1.2 oz) SpO2 96% BMI 36.46 kg/m? VTE Prophylaxis: VTE prophylaxis appropriate Assessment AND Plan: Principal Problem: Anxiety and depression POA: Yes Moderate episode of recurrent major depressive disorder (HCC) POA: Yes Assessment AND Plan: - Referred by OP chemical strength tester Dr Kennedy for concern of worsening depression [...] (HCC) POA: Yes Assessment AND Plan: - Principal Archaeologist 1.3 which is his baseline. - Limits nephrotoxins and trend daily labs. Abdominal pain - Resolved, tolerating diet. - CT AP non acute - ADAT, continue bowel regimen. Dispo: Patient medically stable to transfer to unit. Dr Orantes will continue to follow along and f/up UA/ culture. Discussed with Dr Orantes via phone and transfer orders placed. Teresa Diego, MSN, [facility] 01/19/22 3:30 PM For inpatients: I spent 35 minutes in the visit, with more than 50% of the total rmvd-in-duzo time of the visit in counseling / coordination of care. [facility] [id number] Miscellaneous Notes* Behavorial Health Intake - Yael Huerta, [facility] - 01/19/2022 5:16 PM EDT BEHAVIORAL HEALTH INTAKE NOTE SERVICE DATE: 01/19/2022 SERVICE TIME: 1700 Nature of the crisis: depression leading to medication noncompliance Presenting Problem: José Manuel Ashton is a 61 year old male referred by [facility] for depression. Per Psych consult 01/19/2022 by Rafal Fuentes PA-C Mood is not good. Feels angry most of the days. Feels kind of anxious today. Vague about his depression. I probably need help. I don't want to go backwards. I'm going backwards. I don't know. I don't know what is going on. Endorses low motivation, low energy. Endorses sleep difficulties. Admits difficulties managing his medicine. Says his concentration is probably not very good. Endorses feeling overwhelmed: I don't know what is going on.... too many things with my health. I don'tknow if I will get better. When asked if he has wishes, states I don't know. He denies thoughts to hurt himself or endhis life. Denies hallucinations. Pt was admitted medically on 01/17 for elevated glucose levels. Pt had stopped taking his medications. Given concerns for his depression to be affecting his quality of life and his ability to care for himself, voluntary admission to inpatient psychiatry recommended for further evaluation and care. Patient is agreeable. Per ED vineyard worker Roxanne MOORE on 01/17 This medical underwriter assessed patient via face to face who presents alert and oriented x 4, appears overweight and disheveled, speech is within normal limits appropriate to tone, prosody, melody, phonetic, and syntax, thought process is linear and organized, d ifficulty concentrating at times, and a poor historian,, mood is depressed with flat affect, with impaired judgement and insight into illness. Patient reports that his Apprentice Pattern Maker sent him to the emergency room for [...] too many things going on . This medical underwriter inquires if patient believes he will get [...] states that he has beenforced to a fdc in the past for not caring for himself. This medical underwriter discussed with patientpotential for a [facility] nurse to come into home to assist with his medication management to ensure he is caring for self properly and taking medications. Patient has been calm and cooperative in the ED with no restraints or medications administered. PAST MEDICAL HISTORY: PAST MEDICAL HISTORY Diagnosis [...] quittin.8 Smokeless tobacco: Never Tobacco comments: Smokes [place] Vaping Use Vaping Use: Never used Substance [...] and before supper^Disp: 120 tablet^Rfl: 1 Insulin [place], Disposable, (COMFORT EZ PEN NEEDLES) 29 gauge x 1/2^1 Each once daily.^Disp: 100 Each^Rfl: 3 insulin [...] Major Depressive Disorder Satisfaction With Relationships: per [facility] 01/17 Pt reports to living with brothers and sisters. Patient states that he sometimes does not get along with his siblings. Pt states he came from a family of 17 siblings, he is number 17 Does Patient Have Minor Children for Whom He/She is Responsible?: No Education Level: Some High School (9th grade per [facility]) Is the Patient a : No Legal History: No Legal History How Legal Issues Were Verified: [facility] Manager [employer] Website;[facility] [employer] Sexual Offender Website Gender Specific Test: Not [...] Cane Continence: Continent MENTAL HEALTH SERVICES: Agency/Organization: [facility] in [facility] Inpatient Mental Health Treatment History: None [...] Dr. Olivas Admission Status: Full Admit Unit: [address] Bed#: Room 617 Bed 1 Report Given To: Chele ZHANG Report Date: 01/20/22 Report Time: 1346 Admission Type: Voluntary Is Patient Less Than 18 Years of Age or have a Guardian/Healthcare Power of Gas Regulator Repairer Helper?: No Disposition Date: 01/20/22 Disposition Time: 135 SIGNATURE: [facility] Huerta [facility] PATIENT NAME: José Manuel Ashton DATE: January 19, 2022 TIME: 5:16 PM [facility] NoteHNO ID: [id number] Author: Jennifer Castillo RN Service: Nursing Author Type: Registered Nurse Type: Nursing Progress Note Filed: 01/18/2022 4:10 PM Note Text: 1600 refuses to use urinal.[facility] [id number] NoteHNO ID: [id number] Author: Rafal Carroll PA-C Service: Psychiatry Author Type: Physician Vehicle Washer Type: Plan of Care Filed: 01/18/2022 6:05 PM Note Text: PLAN OF CARE José Manuel Ashton is a 61 year old male with history of MDD, BRANDAN, Cannabis Use Disorder, Tobacco Use Disorder (in remission), Alcohol Use Disorder (in full remission?), Obesity, DM2, HTN, BPH, CKD3, Vitamin D Deficiency, Malignant Neoplasm of Rectum, who presented to the ED as recommended by his chemical strength tester for a psychiatric evaluation in the context of poor compliance to treatment. 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 Kennedy for psych eval who saw him in office earlier today. Note from Dr. Kennedy is as follows, He doesn't have a will to take any medications or do anything to improve his health. He states he would like to get better but doesn't understand why he feels like not taking any of his medications. He feels depressed and very overwhelmed. He denies hallucinations or suicidal or homicidal ideation. Will send the patient to the ER for psychiatric evaluation. The patient again denies SI, HI, hallucinations. Patient reports a known psychiatric history of anxiety and depression for which he sees outpatient psychiatry. He is prescribed Wellbutrin which he is not currently taking. The patient smokes marijuana and uses alcohol on occasion to help with his anxiety and anger. Patient lives with his brother and sister. He does not receive any medical assistance at home and states that he would prefer not to have a nurse come to his house as his brother would spread rumors about his health problems. The patient reiterates to me that he is confused by the amount of medications he is prescribed. He states he does not understand why he is taking them. He states I will try to do good and take them for 2 to 3 days in a row, but then I just stop. Of note, this is a longstanding issue. The patient was seen by a psychiatrist in May of this year after a short stay in a nursing facility. At that time the patient was unwilling to take his medications and Dr. Leon of psychiatry placed a referral for home health. Met with patient at bedside. Patient is [...] here because I was not taking my medication. Admits to longstanding history of poor compliance to meds. Does not offer a reason why he does not take his meds. Vague about his psychiatric symptoms. When asked if he is feeling depressed, states I guess. Says he had a psychiatrist but didn't go back. Was prescribed Wellbutrin, but didn't take. Per [facility], his last psych visit was in 05/31/[address] Inez Leon MD. Says sleep is poor. When asked about his appetite, he jokes about his obesity but then says he is cutting food intake down. Denies hallucinations. Energy is low, I need energy. Denies SI or HI. Denies history of suicide. Voices frustration over his toxicology results, says he has not had alcohol for 40+ years, does not understand how he could be + for alcohol. BAL 26 on 01/17/2022 @8:47 PM. UDS + thc. When asking how much he has been smoking, states as much as I want. When asked to clarify, reports using 3 joints per day. Admits to feeling confused, but not able to elaborate. Reports feeling [...] XR 37.5 mg in (more content not included)...[facility] 01-18-2022 NoteHNO ID: [id number] Author: Nusrat Nash APRN.BARREL PAINTER Service: Hospital Medicine Author Type: Nurse Practitioner [...] (Oral) Resp 18 Ht 177.8 cm (5' 10) Wt 115.1 kg (253 lb 11.2 oz) [...] 1136 01/18/22 0821 01/17/22 2340 01/17/22 2313 01/17/222038 PCGLUCOSE 335* 331* 246* 254* 286* -presented to the ED on request of his Apprentice Pattern Maker, Dr Kennedy, for Psych evaluation (increasing depression). [...] -presented to the ED per request of Apprentice Pattern Maker for Psych evaluation -await Psych evaluation Mixed [...] VTE prophylaxis appropriat (more content not included)... [facility] [id number] History of Past illness Narrative* Problem Noted Date Resolved Date Abdominal discomfort 01/18/2022 01/19/2022 Microscopic hematuria 03/08/2021 01/17/2022 Weakness 05/05/2020 06/15/2020 Decreased mobility and endurance 05/05/2020 06/15/2020 documented as of this encounter (statuses as of 01/20/2022) [facility] History of Past illness Narrative* Problem Noted Date Resolved Date Abdominal discomfort 01/18/2022 01/19/2022 Microscopic hematuria 03/08/2021 01/17/2022 Weakness 05/05/2020 06/15/2020 Decreased mobility and endurance 05/05/2020 06/15/2020 documented as of this encounter (statuses as of 01/28/2022) [facility] History of Past illness Narrative* Problem Noted Date Resolved Date Abdominal discomfort 01/18/2022 01/19/2022 Microscopic hematuria 03/08/2021 01/17/2022 Weakness 05/05/2020 06/15/2020 Decreased mobility and endurance 05/05/2020 06/15/2020 documented as of this encounter (statuses as of 02/21/2022) [facility] History of Past illness Narrative* Problem Noted Date Resolved Date Abdominal discomfort 01/18/2022 01/19/2022 Microscopic hematuria 03/08/2021 01/17/2022 Weakness 05/05/2020 06/15/2020 Decreased mobility and endurance 05/05/2020 06/15/2020 documented as of this encounter (statuses as of 02/21/2022) [facility] History of Past illness Narrative* Problem Noted Date Resolved Date Abdominal discomfort 01/18/2022 01/19/2022 Microscopic hematuria 03/08/2021 01/17/2022 Weakness 05/05/2020 06/15/2020 Decreased mobility and endurance 05/05/2020 06/15/2020 documented as of this encounter (statuses as of 02/21/2022) [facility] History of Past illness Narrative* Problem Noted Date Resolved Date Abdominal discomfort 01/18/2022 01/19/2022 Microscopic hematuria 03/08/2021 01/17/2022 Weakness 05/05/2020 06/15/2020 Decreased mobility and endurance 05/05/2020 06/15/2020 documented as of this encounter (statuses as of 02/23/2022) [facility] History of Past illness Narrative* Problem Noted Date Resolved Date Abdominal discomfort 01/18/2022 01/19/2022 Microscopic hematuria 03/08/2021 01/17/2022 Weakness 05/05/2020 06/15/2020 Decreased mobility and endurance 05/05/2020 06/15/2020 documented as of this encounter (statuses as of 03/01/2022) [facility] History of Past illness Narrative* Problem Noted Date Resolved Date Abdominal discomfort 01/18/2022 01/19/2022 Microscopic hematuria 03/08/2021 01/17/2022 Weakness 05/05/2020 06/15/2020 Decreased mobility and endurance 05/05/2020 06/15/2020 documented as of this encounter (statuses as of 03/01/2022) [facility] History of Past illness Narrative* Problem Noted Date Resolved Date Abdominal discomfort 01/18/2022 01/19/2022 Microscopic hematuria 03/08/2021 01/17/2022 Weakness 05/05/2020 06/15/2020 Decreased mobility and endurance 05/05/2020 06/15/2020 documented as of this encounter (statuses as of 03/11/2022) [facility] History of Past illness Narrative* Problem Noted Date Resolved Date Abdominal discomfort 01/18/2022 01/19/2022 Microscopic hematuria 03/08/2021 01/17/2022 Weakness 05/05/2020 06/15/2020 Decreased mobility and endurance 05/05/2020 06/15/2020 documented as of this encounter (statuses as of 03/12/2022) [facility] History of Past illness Narrative* Problem Noted Date Resolved Date Abdominal discomfort 01/18/2022 01/19/2022 Microscopic hematuria 03/08/2021 01/17/2022 Weakness 05/05/2020 06/15/2020 Decreased mobility and endurance 05/05/2020 06/15/2020 documented as of this encounter (statuses as of 03/17/2022) [facility] History of Past illness Narrative* Problem Noted Date Resolved Date Abdominal discomfort 01/18/2022 01/19/2022 Microscopic hematuria 03/08/2021 01/17/2022 Weakness 05/05/2020 06/15/2020 Decreased mobility and endurance 05/05/2020 06/15/2020 documented as of this encounter (statuses as of 03/23/2022) [facility] History of Past illness Narrative* Problem Noted Date Resolved Date Abdominal discomfort 01/18/2022 01/19/2022 Microscopic hematuria 03/08/2021 01/17/2022 Weakness 05/05/2020 06/15/2020 Decreased mobility and endurance 05/05/2020 06/15/2020 documented as of this encounter (statuses as of 04/05/2022) [facility] History of Past illness Narrative* Problem Noted Date Resolved Date Abdominal discomfort 01/18/2022 01/19/2022 Microscopic hematuria 03/08/2021 01/17/2022 Weakness 05/05/2020 06/15/2020 Decreased mobility and endurance 05/05/2020 06/15/2020 documented as of this encounter (statuses as of 04/07/2022) [facility] of Past illness Narrative* Problem Noted Date Resolved Date Abdominal discomfort 01/18/2022 01/19/2022 Microscopic hematuria 03/08/2021 01/17/2022 Weakness 05/05/2020 06/15/2020 Decreased mobility and endurance 05/05/2020 06/15/2020 documented as of this encounter (statuses as of 04/12/2022) [facility] of Past illness Narrative* Problem Noted Date Resolved Date Abdominal discomfort 01/18/2022 01/19/2022 Microscopic hematuria 03/08/2021 01/17/2022 Weakness 05/05/2020 06/15/2020 Decreased mobility and endurance 05/05/2020 06/15/2020 documented as of this encounter (statuses as of 04/13/2022) [facility] of Past illness Narrative* Problem Noted Date Resolved Date Abdominal discomfort 01/18/2022 01/19/2022 Microscopic hematuria 03/08/2021 01/17/2022 Weakness 05/05/2020 06/15/2020 Decreased mobility and endurance 05/05/2020 06/15/2020 documented as of this encounter (statuses as of 04/21/2022) [facility] History of Past illness Narrative* Problem Noted Date Resolved Date Abdominal discomfort 01/18/2022 01/19/2022 Microscopic hematuria 03/08/2021 01/17/2022 Weakness 05/05/2020 06/15/2020 Decreased mobility and endurance 05/05/2020 06/15/2020 documented as of this encounter (statuses as of 04/26/2022) [facility] History of Past illness Narrative* Problem Noted Date Resolved Date Abdominal discomfort 01/18/2022 01/19/2022 Microscopic hematuria 03/08/2021 01/17/2022 Weakness 05/05/2020 06/15/2020 Decreased mobility and endurance 05/05/2020 06/15/2020 documented as of this encounter (statuses as of 05/04/2022) [facility] of Past illness Narrative* Problem Noted Date Resolved Date Abdominal discomfort 01/18/2022 01/19/2022 Microscopic hematuria 03/08/2021 01/17/2022 Weakness 05/05/2020 06/15/2020 Decreased mobility and endurance 05/05/2020 06/15/2020 documented as of this encounter (statuses as of 05/06/2022) [facility] of Past illness Narrative* Problem Noted Date Resolved Date Abdominal discomfort 01/18/2022 01/19/2022 Microscopic hematuria 03/08/2021 01/17/2022 Weakness 05/05/2020 06/15/2020 Decreased mobility and endurance 05/05/2020 06/15/2020 documented as of this encounter (statuses as of 05/11/2022) [facility] of Past illness Narrative* Problem Noted Date Resolved Date Abdominal discomfort 01/18/2022 01/19/2022 Microscopic hematuria 03/08/2021 01/17/2022 Weakness 05/05/2020 06/15/2020 Decreased mobility and endurance 05/05/2020 06/15/2020 documented as of this encounter (statuses as of 05/19/2022) [facility] History of Past illness Narrative* Problem Noted Date Resolved Date Abdominal discomfort 01/18/2022 01/19/2022 Microscopic hematuria 03/08/2021 01/17/2022 Weakness 05/05/2020 06/15/2020 Decreased mobility and endurance 05/05/2020 06/15/2020 documented as of this encounter (statuses as of 05/19/2022) [facility] History of Past illness Narrative* Problem Noted Date Resolved Date Abdominal discomfort 01/18/2022 01/19/2022 Microscopic hematuria 03/08/2021 01/17/2022 Weakness 05/05/2020 06/15/2020 Decreased mobility and endurance 05/05/2020 06/15/2020 documented as of this encounter (statuses as of 06/06/2022) [facility] of Past illness Narrative* Problem Noted Date Resolved Date Abdominal discomfort 01/18/2022 01/19/2022 Microscopic hematuria 03/08/2021 01/17/2022 Weakness 05/05/2020 06/15/2020 Decreased mobility and endurance 05/05/2020 06/15/2020 documented as of this encounter (statuses as of 06/22/2022) [facility] of Past illness Narrative* Problem Noted Date Resolved Date Abdominal discomfort 01/18/2022 01/19/2022 Microscopic hematuria 03/08/2021 01/17/2022 Weakness 05/05/2020 06/15/2020 Decreased mobility and endurance 05/05/2020 06/15/2020 documented as of this encounter (statuses as of 06/29/2022) [facility] of Past illness Narrative* Problem Noted Date Resolved Date Abdominal discomfort 01/18/2022 01/19/2022 Microscopic hematuria 03/08/2021 01/17/2022 Weakness 05/05/2020 06/15/2020 Decreased mobility and endurance 05/05/2020 06/15/2020 documented as of this encounter (statuses as of 06/30/2022) [facility] of Past illness Narrative* Problem Noted Date Resolved Date Abdominal discomfort 01/18/2022 01/19/2022 Microscopic hematuria 03/08/2021 01/17/2022 Weakness 05/05/2020 06/15/2020 Decreased mobility and endurance 05/05/2020 06/15/2020 documented as of this encounter (statuses as of 07/01/2022) [facility] History of Past illness Narrative* Problem Noted Date Resolved Date Abdominal discomfort 01/18/2022 01/19/2022 Microscopic hematuria 03/08/2021 01/17/2022 Weakness 05/05/2020 06/15/2020 Decreased mobility and endurance 05/05/2020 06/15/2020 documented as of this encounter (statuses as of 07/15/2022) [facility] of Past illness Narrative* Problem Noted Date Resolved Date Abdominal discomfort 01/18/2022 01/19/2022 Microscopic hematuria 03/08/2021 01/17/2022 Weakness 05/05/2020 06/15/2020 Decreased mobility and endurance 05/05/2020 06/15/2020 documented as of this encounter (statuses as of 07/27/2022) [facility] of Past illness Narrative* Problem Noted Date Resolved Date Abdominal discomfort 01/18/2022 01/19/2022 Microscopic hematuria 03/08/2021 01/17/2022 Weakness 05/05/2020 06/15/2020 Decreased mobility and endurance 05/05/2020 06/15/2020 documented as of this encounter (statuses as of 07/28/2022) [facility] of Past illness Narrative* Problem Noted Date Resolved Date Abdominal discomfort 01/18/2022 01/19/2022 Microscopic hematuria 03/08/2021 01/17/2022 Weakness 05/05/2020 06/15/2020 Decreased mobility and endurance 05/05/2020 06/15/2020 documented as of this encounter (statuses as of 08/09/2022) [facility] History of Past illness Narrative* Problem Noted Date Resolved Date Abdominal discomfort 01/18/2022 01/19/2022 Microscopic hematuria 03/08/2021 01/17/2022 Weakness 05/05/2020 06/15/2020 Decreased mobility and endurance 05/05/2020 06/15/2020 documented as of this encounter (statuses as of 08/13/2022) [facility] History of Past illness Narrative* Problem Noted Date Resolved Date Abdominal discomfort 01/18/2022 01/19/2022 Microscopic hematuria 03/08/2021 01/17/2022 Weakness 05/05/2020 06/15/2020 Decreased mobility and endurance 05/05/2020 06/15/2020 documented as of this encounter (statuses as of 08/15/2022) [facility] NoteHNO ID: [id number] Author: Kylah Orantes MD Service: ? Author Type: Physician Type: Progress Notes Filed: 01/18/2022 11:14 PM Note Text: [facility] Progress Note JOSÉ MANUEL ASHTON : 1960 AGE: 61 SEX: M CSN: [id number] [facility]: [facility] LOCATION: [facility] ATTENDING PHYSICIAN: Kylah Orantes M.D. DATE OF [...] quittin.8 Smokeless tobacco: Never Tobacco comments: Smokes [place] Vaping Use Vaping Use: Never used Substance [...] injection 0.5 mg INTRAVENOUS PRN Radha Mack APRN.BARREL PAINTER NaCl 0.9% iv flush bag 20 mL INTRAVENOUS PRN Radha Mack APRN.BARREL PAINTER sodium chloride 0.9 % (flush) 3-5 mL (BD POSIFLUSH) 3-5 mL INTRAVENOUS q 12 H Radha Mack APRN.BARREL PAINTER 5 mL at 01/18/222014 aluminum-magnesium hydroxide-simethicone 200-200-20 mg/5 mL 30 mL (MAALOX,MYLANTA,MAG-AL PLUS) 30 mL ORAL DAILY PRN Radha Mack APRN.BARREL PAINTER acetaminophen 650 mg tab(s) (TYLENOL) 650 mg ORAL q 6 H PRN Radha Mack APRN.BARREL PAINTER 650 mg at 01/18/22 0818 insulin lispro injection (rapid acting) (ADMELOG) SUBCUTANEOUS AT BEDTIME Radha Mack APRN.BARREL PAINTER 2 Units at 01/18/22 0123 hydrALAZINE 10 mg injection (APRESOLINE) 10 mg INTRAVENOUS q 6 H PRN Radha Mack APRN.BARREL PAINTER lisinopril 20 mg tab(s) (ZESTRIL, PRINIVIL) 20 mg ORAL DAILY Radha Mack APRN.BARREL PAINTER 20 mg at 01/18/22 0817 tamsulosin 0.4 mg cap(s) (FLOMAX) 0.4 mg ORAL AT BEDTIME Radha Mack VISUAL EDUCATION DIRECTOR.BARREL PAINTER 0.4 mg at 01/18/222014 enteric contrast (radiology procedure) ORAL DIRECTED PRN Kylah Orantes MD insulin lispro injection (rapid acting) (ADMELOG) SUBCUTANEOUS w MEALS Nusrat Nash APRN.BARREL PAINTER 9 Units at 01/18/22 1729 pioglitazone 45 mg tab(s) (ACTOS) 45 mg ORAL DAILY Nusrat Nash APRN.BARREL PAINTER 45 mg at 01/18/22 1218 insulin glargine 26 Units pen (long acting) (LANTUS SOLOSTAR, BASAGLAR KWIKPEN) 26 Units SUBCUTANEOUS AT BEDTIME Nusrat Nash APRN.BARREL PAINTER 26 Units at 01/18/222015 docusate sodium 100 mg cap(s) (COLACE) 100 mg ORAL BID Nusrat Nash APRN.BARREL PAINTER 100 mg at 01/18/222014 polyethylene glycol 3350 17 g packet (MIRALAX, GLYCOLAX) 17 g ORAL DAILY Nusrat Nash APRN.BARREL PAINTER 17 g at 01/18/22 1222 [START ON 01/19/2022] venlafaxine ER 3 (more content not included)...[facility] [id number] History of Present illness Narrative* Jen Bergman RN - 01/18/2022 9:05 AM EDT PRIMARY CARE COORDINATION QUICK NOTE Patient identified by name and date . Pt admitted to [facility] yesterday. SBAR attached. Jen Bergman RN * Jen Bergman RN - 01/18/2022 8:57 AM EDT PRIMARY CARE COORDINATION SBAR PCC HAND IN José Manuel Ashton, 61 year old male SITUATION: Admitted for Psych Eval Hyperglycemic BACKGROUND: Living arrangements: Lives with Family - Brother and Sister Contact Name and phone number: Meche Sanders (Sister) - Health Cargo Service Agent: His siblings help Self Care/ADLs: Independent Mobility: Independent Barriers to care/Adherence: Financial Transportation Other - Pt states that he just doesn't want to take his meds or check his blood sugars RECOMMENDATIONS: Pt may need SNF Name of Supervisor Glycerin: Jen Bergman RN [facility] or [facility] office: [facility] (Dr. Vega, PCP) Phone number: [phone] documented in [facility] NoteHNO ID: [id number] Author: Radha Mack APRN.LEX Service: Critical Care Author Type: Nurse Practitioner Type: Progress Notes Filed: 01/18/2022 12:35 AM Note Text: Beef Tagger Coverage Note Patient Name: José Manuel Ashton This is a 61 year old male admitted for hyperglycemia without anion gap and psych eval. He was directed to come to the ED by his chemical strength tester Dr. Kennedy for concern of patient's decrease willingness to take his medications and feelings of depression. He is admitted to the [facility] for glycemic control. Plan discussed with RN and patient. General admission orders placed; formal admit orders, medication reconciliation and HANDP to follow by primary attending . RN to notify primary team for of new admission and for further recommendations. BP 187/94 Pulse 86 Temp 36.6 ?C (97.9 ?F) (Oral) Resp 17 Ht 177.8 cm (5' 10) Wt 115.1 kg (253 lb 11.2 oz) SpO2 98% BMI 36.40 kg/m? Radha Mack APRN.BARREL PAINTER January 18, 2022 12:32 [facility]10-17-2022 NoteCOVID 19 RESULT: SARS-CoV-2 (Agent of COVID-19) Not Detected by RT-PCR or equivalent method. This test has been authorized by FDA under an Emergency Use Authorization (EUA). INFLUENZA A PCR: Negative for Influenza A by RT-PCR INFLUENZA B PCR: Negative for Influenza B by RT-PCR RSV PCR: Negative for Respiratory Syncytial Virus (RSV) by PCRLutheran HospitalComment on above:Performed By: #### [id number] ####[facility] LABORATORYCLIA [id number] [place] [address] [place] 01-17-2022 Miscellaneous Notes* Behavorial Health Intake - Roxanne Rowland, OSCAR - 01/17/2022 8:50 PM EDT BEHAVIORAL HEALTH INTAKE NOTE SERVICE DATE: 01/17/2022 SERVICE TIME: 8:38 pm Nature of the crisis: Psychiatric evaluation for depression from Apprentice Pattern Maker outpatient appointment Presenting Problem: José Manuel Ashton [...] and CKD stage 3a, brought in to [facility] from Outpatient Office by self for psychiatric evaluation for depression. Per ED note Pt sent by Dr Kennedy for psychiatric eval from appointment today Pt states he is having hard time understanding his medical dx and keeping up with his T2DM. Per Dr. Kennedy Epic note 01/17/2022 He doesn't take any medications because he doesn't feel like taking any medications. He is having problems with chronic pain and lack of sleep. He states he stays up the whole night walking around in the house the whole night. He denies suicidal or homicidal ideation. He just smokes pot to calm himself down and it works. He avoids drinking alcohol because it makes me mean so I avoid going down that route. He would like to get helped. He has a psychiatrist at [facility] at [place], [place]. This medical underwriter assessed patient via face to face who presents alert and oriented x 4, appears overweight and disheveled, speech is within normal limits appropriate to tone, prosody, melody, phonetic, and syntax, thought process is linear and organized, difficulty concentrating at times, and a poor historian,, mood is depressed with flat affect, with impaired judgement and insight into illness. Patient reports that his Apprentice Pattern Maker sent him to the emergency room for [...] too many things going on . This medical underwriter inquires if patient believes he will get [...] states that he has beenforced to a fdc in the past for not caring for himself. This medical underwriter discussed with patientpotential for a [facility] nurse to come into home to assist with his medication management to ensure he is caring for self properly and taking medications. Patient has been calm and cooperative in the ED with no restraints or medications administered. This medical underwriter spoke to ED physician, Dr. Rascon, who [...] quittin.8 Smokeless tobacco: Never Tobacco comments: Smokes [place] Vaping Use Vaping Use: Never used Substance [...] and before supper^Disp: 120 tablet^Rfl: 1 Insulin [place], Disposable, (COMFORT EZ PEN NEEDLES) 29 gauge x 1/2^1 Each once daily.^Disp: 100 Each^Rfl: 3 insulin [...] Employment Status: Disabled Is the Patient a [place]: No Legal History: No Legal History How Legal Issues Were Verified: [facility] Manager [employer] Website;[facility] Sexual Offender Website Gender Specific Test: Not Applicable Sex at Time of : Male Patient Identified Gender: Male Preferred Pronoun: He/Him/His Sexual Orientation: Heterosexual Cultural/Confucianist Concerns Cultural Issues or Concerns That Might Affect Treatment: NOne Confucianist/Spiritual Issues or Concerns That Might Affect Treatment: None FAMILY HISTORY: FAMILY HISTORY Problem Relation Age of Onset other (Heart stroke) Mother other (Glaucoma lung cancer) Father Glaucoma Sister Glaucoma Brother OBSERVATIONS Level of Consciousness Alert: Yes Orientation: Person;Place;Time;Situation Physical Appearance Appears: Disheveled;Overweight Speech Rate: Appropriate Volume: Appropriate Quality: Appropriate to Topic Quantity: Appropriate Thought Processes Thought: Difficulty Concentrating;Poor Historian/Windows Consultant;Linear and Organized Thought Content Delusions: None Observed [...] Age or have a Guardian/Healthcare Power of Gas Regulator Repairer Helper?: No Disposition Date: 01/17/22 Disposition Time: 2319 SIGNATURE: OSCAR Pandya PATIENT NAME: José Manuel Ashton DATE: January 17, 2022 TIME: 8:50 PM documented in this encounterMain [facility] Center10-[facility]22 NoteHNO ID: [id number] Author: Billy Cody MD Service: ? Author Type: Physician Type: Progress Notes Filed: 01/17/2022 3:36 PM Note Text: [facility] [place] NEPHROLOGY CONSULT NOTE Patient Name: José Manuel [...] because he doesn't feel like taking any medications. He is having problems with chronic pain and lack of sleep. He states he stays up the whole night walking around in the house the whole night. He denies suicidal or homicidal ideation. He just smokes pot to calm himself down and it works. He avoids drinking alcohol because it makes me mean so I avoid going down that route. He would like to get helped. He has a psychiatrist at [facility] [place]. PAST MEDICAL HISTORY: PAST MEDICAL HISTORY [...] quittin.8 Smokeless tobacco: Never Tobacco comments: Smokes [place] Vaping Use Vaping Use: Never used Substance Use Topics Alcohol use: Not Currently Drug use: Yes Types: Marijuana Comment: daily Single. No children. He lives with his brother and sister. (He moved back from [place]). 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 He quit tobacco in 2019. He [...] tablets before breakfast and before supper Insulin [place], Disposable, (COMFORT EZ PEN NEEDLES) 29 gauge x 1/2 1 Each once daily. insulin glargine (LANTUS SOLOSTAR, BASAGLAR KWIKPEN) 100 unit/mL (3 mL) Inject 26 Units subcutaneously daily at bedtime. buPROPion SR (WELLBUTRIN SR) 100 mg 12 hr tablet Take 1 tablet by mouth once daily. (more content not included)...[facility] [id number] Instructions* Patient Instructions* Billy Cody MD - 01/17/2022 3:14 PM EDT Advised to go to the ER for evaluation of depression. documented in this encounterMain [facility] Center10-17-2022 History of Present illness Narrative* Billy Cody MD - 01/17/2022 3:00 PM EDT Images from the original note were not included. [facility] [place] NEPHROLOGY CONSULT NOTE Patient Name: José Manuel [...] because he doesn't feel like taking any medications. He is havingproblems with chronic pain and lack of sleep. He states he stays up the whole night walking around in the house the whole night. He denies suicidal or homicidal ideation. He just smokes pot to calm himself down and it works. He avoids drinking alcohol because it makes me mean so I avoid going downthat route. He would like to get helped. He has a psychiatrist at [facility] at [place], [place]. PAST MEDICAL HISTORY: PAST MEDICAL HISTORY [...] quittin.8 Smokeless tobacco: Never Tobacco comments: Smokes [place] Vaping Use Vaping Use: Never used Substance Use Topics Alcohol use: Not Currently Drug use: Yes Types: Marijuana Comment: daily Single. No children. He lives with his brother and sister. (He moved back from [place]). 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 He quit tobacco in 2019. He [...] tablets before breakfast and before supper Insulin [place], Disposable, (COMFORT EZ PEN NEEDLES) 29 gauge x 1/2 1 Each once daily. insulin glargine (LANTUS [...] all of his medical problems. He sates he doesn'tknow what to do. He doesn't take any medications because he doesn't feel like taking any medications. He is having problems with chronic pain and lack of sleep. He states he stays up the whole night walking around in the house the whole night. He denies suicidal or homicidal ideation. He just smo kes pot to calm himself down and it works. He avoids drinking alcohol because it makes me mean so I avoid going down that route. He would like to get helped MUSCULOSKELETAL: No joint swelling or back pain ENDOCRINE: No polydipsia or polyphagia HEMATOLOGIC: No bleeding LYMPHATIC: No generalized lymphadenopathy IMMUNOLOGIC: His last influenza vaccine was on 01/08/21. He declines taking the influenza and CoVID-19 vaccine VITAL SIGNS: BP 165/85 Pulse 90 Ht 177.8 cm (5' 10) Wt 115.7 kg (255 lb) SpO2 95% [...] 04/12/2021 5.0 5.0 - 8.0 Final Specific Cyril, Ur Date Value Ref Range Status 04/12/2021 [...] CC: Belgica Vega DO documented in this encounterMain Campus Medical Center10-14-2022 Miscellaneous Notes* Telephone Encounter - Simeon Vásquez - 01/14/2022 2:03 PM EDT Patient has cancelled surgery again due to ongoing kidney problems. Case has been cancelled out by Girma Vásquez and all scheduled PO appts. too documented in this encounterMain Campus Medical Center10-14-2022 Miscellaneous Notes* Telephone Encounter - Maria D [...] later date for rescheduling. documented in this encounterMain Campus Medical Center10-07-2022 History of Present illness Narrative* Jen Bergman [...] Weight mgmt/activity No change (09/23/2020) Concerns: N/A Soil Conservationist plan for next outreach: Will follow up in about 3wks. Signature Jen Bergman RN January 07, 2022 documented in this encounterMain Campus Medical Center10-03-2022 History of Present illness Narrative* Belgica Vega, DO - 01/03/2022 3:53 PM EDT Images from the original note were not included. Belgica Vega [address] [facility] [address] [place] [address] Visit Date: January 03, 2022 Mr.Jim Najma Ashton Date of : 1960 MRN/E #: [id number] History of Present Illness José Manuel Ashton is a 61 year old male. Patient presents to the clinic today for follow-up hypertension, diabetes HPI Per appointment note patient has been stressed and depressed. Has not been taking his medication regularly Patient has history of hypertension and lower extremity edema.. BP today 141/85. BP during last office visit [id number]. during November 2021. Patient was prescribed lisinopril [...] office visit patient indicated he did not turkey picker Medication from the pharmacy.. Pt admits [...] quittin.7 Smokeless tobacco: Never Tobacco comments: Smokes [place] Vaping Use Vaping Use: Never used Substance [...] breakfast and before supper 120tablet 1 Insulin Cran[place], Disposable, (COMFORT EZ PEN NEEDLES) 29 gauge x 1/2 1 Each once daily. 100 Each 3 [...] nervous/anxious. BP 141/85 Pulse 94 Ht 5' 10 (1.78m) Wt 255 lb (115.7kg) BMI 36.59 [...] (A) 74 - 99 mg/dL Final Comment: Location:[facility] [place], [address] [place] [address] The Accu-Chek Inform II glucose meter has [...] (A) 4.2 - 5.6 % Final Comment: Location:[facility] [employer] [place], [address] [place] [address], [facility] Point of care (POC) Hemoglobin A1c (HGBA1C) [...] specific diabetes management situations: The POC device aws consultant provides a normal range of 4.2% to 6.5% for the HGBA1C POC test. However, the [place] Diabetes Association guidelines indicate that patients with [...] layman's terms - CONSULT TO PSYCHOLOGY Belgica Vega, DO Return in about 1 month (around 02/03/2022) for Medication follow-up, Hypertension, Diabetes, Visit for re-check. If symptoms persist, worsen, or no improvement, patient is to call 911 and/or go to the nearest ED. documented in this encounterMain Campus Medical Center09-27-2022 History of Present illness Narrative* Jen Bergman RN - 12/28/2021 11:52 AM EDT PRIMARY CARE COORDINATION FOLLOW-UP NOTE Patient identified by name and date of . YES Spoke to patient Summary: PCC called for routine f/u. States that he is hanging in here. Expresses that he knows he missed some appointments - had right times wrong days. Per pt, he has already rescheduled all the appointments. Has a PCP appointment on 01/03/22 at 3:20p. SDOH completed. Seems depressed. Comfort provided. Admits to being stressed. Pt doesn't like talking on the phone. States sometimes he just don't answer it. Per pt, he doesn't want to be around people right now and he don't know why. Lives w/ family. Pt is trying to do better. He walks the driveway mostly everyday. Pt isn't checking his bloodsugars. States that the machine pisses him off, especially when his sugars are high. He is tryingto watch what he eats. Encouraged pt to at least check his sugars daily and keep a log until he sees his PCP next wk - agreeable. Pt states that he is back on' hs meds for the most part. Upon clarification, pt sometimes just doesn't want to take his pills because he doesn't like [...] Weight mgmt/activity No change (09/23/2020) Concerns: N/A Soil Conservationist plan for next outreach: Will follow up in 1-2 wks. Signature Jen Bergman RN December 28, 2021 documented in this encounterMain Campus Medical Center09-19-2022 NoteHNO ID: [id number] Author: Billy Cody MD Service: ? Author [...] signs AND symptoms (ex: edema, SOB): azotemia [facility] [place] Billy Leon MD Staff Nephrology and Hypertension [facility] Pager# [phone] Osteopathic [id number] History of Present illness Narrative* Billy Cody [...] signs & symptoms (ex: edema, SOB): azotemia [facility] [place] Billy Leon MD Staff Nephrology and Hypertension [facility] Pager# [phone] documented in this encounterMain Campus Medical Center09-02-2022 History of Present illness Narrative* Jen Bergman [...] Weight mgmt/activity No change (09/23/2020) Concerns: N/A Soil Conservationist plan for next outreach: Will follow up in about 1 month. Signature Jen Bergman RN December 03, 2021 documented in this encounterMain Campus Medical Center08-30-2022 Miscellaneous Notes* Telephone Encounter - Maria D Pepper - 11/30/2021 9:32 AM EDT Called patient on 11/30/21 to schedule cataract surgery, right eye with Dr. Meza in March 2022. Unable to leave a message - voicemail box full. Previous attempts to reach patient occurred on 11/09/21, 11/10/21, 11/24/21. Sending letter to patient to call our office to let us know if he's still interested in scheduling cataract surgery. documented in this encounterMain Campus Medical Center08-22-2022 Miscellaneous Notes* Telephone Encounter - Yarely Teixeira Pss - 11/22/2021 8:50 AM EDT Faxed letter to Belgica Vega DO [phone] [facility] [phone] [address] documented in this encounterMain Campus Medical Center08-09-2022 Miscellaneous Notes* Telephone Encounter - Maria D Pepper - 11/09/2021 2:40 PM EDT Attempted to call patient to schedule cataract surgery, right eye with Dr. Meza. Per staff message from Dr. Meza, she recommended scheduling out about 3 months (in February) to give patientan opportunity to get his sugars under control. No answer, no machine. Will try again at a later date. documented in this encounterMain Campus Medical Center08-05-2022 History of Present illness Narrative* Belgica L Je, DO - 11/05/2021 4:10 PM EDT Images from the original note were not included. Belgica Brandon Je [address] [facility] [address] [place] [address] Visit Date: November 05, 2021 Mr.Jim Najma Ashton Date of : 1960 MRN/E #: [id number] History of Present Illness José Manuel Ashton is a 60 year old male. Patient presents to the clinic today for follow-up hypertension, diabetes HPI Patient has history of hypertension and lower extremity edema.. BP today 150/95. BP during last office visit was 143/84 during September 2021.Pt states just came back from eye dr. Joshi wearing sunglasses. Patient admits he does eat [...] Pt indicates having troubles scheduling, told by law firm receptionist not sure what kind of kidney [...] was recommended patient schedule Pap titration previously. Pthasnt done that yet. Pap titration is pending [...] Smokeless tobacco: Never Used Tobacco comment: Smokes [place] Vaping Use Vaping Use: Never used Substance [...] breakfast and before supper 120tablet 1 Insulin [place], Disposable, (COMFORT EZ PEN NEEDLES) 29 gauge x 1/2 1 Each once daily. 100 Each 3 [...] 1 Drop BOTH EYES As Directed Renetta Meza MD 1 Drop at 11/05/21 1300 PHENYLephrine 2.5 % 1 Drop (AK-DILATE, MARILYN-SYNEPHRINE) 1 Drop BOTH EYES As Directed Renetta Meza MD 1 Drop at 11/05/21 1300 fluorescein-benoxinate 0.25-0.4 % 1 Drop (FLURESS) 1 Drop BOTH EYES As Directed Renetta Meza MD 1 Drop at 11/05/21 1300 proparacaine 0.5 % 1 Drop (ALCAINE) 1 Drop BOTH EYES As Directed Renetta Meza MD Review of Systems Constitutional: Negative for [...] depression. BP 160/94 Pulse 85 Ht 5' 10 (1.78m) Wt 269 lb (122.0kg) BMI 38.60 [...] (A) 74 - 99 mg/dL Final Comment: Location:[facility] [employer] [place], [address] [place] [address], [facility] The Accu-Chek Inform II glucose meter has [...] (A) 4.2 - 5.6 % Final Comment: Location:[facility], [address] [place] [address], [facility] Point of care (POC) Hemoglobin A1c (HGBA1C) [...] specific diabetes management situations: The POC device aws consultant provides a normal range of 4.2% to 6.5% for the HGBA1C POC test. However, the [place] Diabetes Association guidelines indicate that patients with [...] to the nearest ED. documented in this encounterMain Campus Medical Center08-05-2022 History of Present illness Narrative* Renetta Meza MD - 11/05/2021 2:13 PM EDT (E11.7994) Mild nonproliferative diabetic retinopathy of both eyes [...] patient [facility] a [facility]. The surgeon/proceduralist and patient have discussed [...] NO Previous refractive surgery: NO Preferred office: [place] [facility] phenylephrine and vigamox Special notes sugars [...] management of this patient's care with the Resident/Fellow/Administrative Technician, if applicable. I also have reviewed and agree with the assessment and plan as stated above and agree with all of its relevant components. Renetta Meza MD November 05, 2021 2:16 PM documented in this encounterMain Campus Medical Center08-01-2022 History of Present illness Narrative* Jen Bergman [...] Weight mgmt/activity No change (09/23/2020) Concerns: N/A Soil Conservationist plan for next outreach: Will follow up in about 3wks. Signature Jen Bergman RN November 01, 2021 documented in this encounterMain Campus Medical Center07-27-2022 History of Present illness Narrative* Noé Kennedy [...] (no units) Date Value 04/12/2021 3+ Specific Cyril, Ur (no units) Date Value 04/12/2021 1.025 [...] tablets before breakfast and before supper Insulin [place], Disposable, (COMFORT EZ PEN NEEDLES) 29 gauge x 1/2 1 Each once daily. insulin glargine (LANTUS [...] Smokeless tobacco: Never Used Tobacco comment: Smokes [place] Vaping Use Vaping Use: Never used Substance [...] neg 02/17/2020 PSA 0.75, no Fhx of School Athletic Director Assessment and Plan: Microhematuria- prior w/u neg. Pts probem list mentions h/o bladder cancer; pt says hes [...] Level: 4 - Moderate documented in this encounterMain Campus Medical Center07-26-2022 Miscellaneous Notes* Telephone Encounter - Nancy Howard - 10/26/2021 11:55 AM EDTSummary: Referral Follow up Images from the original note were not included. called pt mailbox full mailed letter documented in this encounterMain Campus Medical Center07-14-2022 Miscellaneous Notes* Telephone Encounter - Alissa Bryson - 10/14/2021 3:56 PM EDT Called pt to vania colonoscopy with Gabby, mailbox is full, unable to lvm. Alissa Bryson documented in this encounterMain Campus Medical Center07-05-2022 Miscellaneous Notes* Telephone Encounter - Nancy Howard - 10/05/2021 4:12 PM EDTSummary: Referral Referral to Nephrology Confirmation number: [id number] documented in this encounterMain Campus Medical Center07-05-2022 History of Present illness Narrative* Belgica Vega, - 10/05/2021 3:13 PM EDT Images from the original note were not included. Belgica Vega [address] [facility] [address] [place] [address] Visit Date: October 05, 2021 Mr.Jim Najma Ashton Date of : 1960 MRN/E #: [id number] History of Present Illness José Manuel Ashton [...] Smokeless tobacco: Never Used Tobacco comment: Smokes [place] Vaping Use Vaping Use: Never used Substance [...] breakfast and before supper 120tablet 1 Insulin [place], Disposable, (COMFORT EZ PEN NEEDLES) 29 gauge x 1/2 1 Each once daily. 100 Each 3 [...] 130/80 Pulse 78 Temp 98.2 Ht 5' 10 (1.78m) Wt 260 lb (117.9kg) SpO2 99% [...] (A) 74 - 99 mg/dL Final The [place] Diabetes Association (ADA) provides guidance for cutoff [...] Standards of Medical Care in Diabetes 2016, [place] Diabetes Association. Diabetes Care. 2016.39(Suppl 1). BUN [...] Desk Reference: National Heart, Lung, and Blood [place]. National Institutes of Health. 2001: NIH Publication [...] to the nearest ED. documented in this encounterMain Campus Medical Center06-20-2022 Miscellaneous Notes* Telephone Encounter - Nancy Howard - 09/20/2021 2:16 PM EDT Images from the original note were not included. Referral to Ophthalmology Confirmation number: [id number] documented in this encounterMain Campus Medical Center06-20-2022 History of Present illness Narrative* Belgica Vega DO - 09/20/2021 1:23 PM EDT Transitional Care Management TCM Eligibility Documentation The following information was gathered during the initial Patient Outreach Encounter. No flowsheet data found. Summary Discharged from: [facility] Admit Date: 09/06/2021 Admitted for: [...] 143/84 Pulse 99 Temp 98.3 Ht 5' 10 (1.78m) Wt 260 lb (117.9kg) BMI 37.31 [...] 20, 2021 1:23 PM documented in this encounterMain Campus Medical Center06-17-2022 History of Present illness Narrative* Jen Bergman RN - 09/17/2021 10:15 AM EDT PRIMARY CARE COORDINATION FOLLOW-UP NOTE Patient identified by name and date of . YES Spoke to patient Summary: PCC called for routine f/u. Pt is doing alright. States that he is hanging in here. His boil has gone sown quite a bit. he still has a bump and a little bit of seeping. Pt hasn't checked his blood sugars in a couple of days. States that his sugar was >300, then went down to 2 something. Encouraged to check his sugars. Pt states [...] Weight mgmt/activity No change (09/23/2020) Concerns: N/A Soil Conservationist plan for next 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 Signature Jen Bergman RN September 17, 2021 documented in this encounterMain Campus Medical Center06-08-2022 History of Present illness Narrative* Jen Bergman RN - 09/08/2021 2:32 PM EDT ADMITTING MANAGER EMERGENCY DEPARTMENT FOLLOW UP INITIAL CONTACT Initial contact with patient post discharge, spoke to pt. Patient identified by name and date : YES SUMMARY: -Patient discharged from [facility] ED on 09/07/21. -Follow up appointment on [...] sooner appointment. Pt states thathe gets an infection sickness. No fever. The area on his next stings. He is taking his PO atbs.States that [...] None BRIEF ED COURSE: Care Timeline 09/06 2109 Arrived 2243 ketorolac tromethamine 15 mg 2247 CBC + DIFF COMP METABOLIC PANEL LACTIC ACID/LACTATE VENOUS BLOOD GASES 2250 Ringer's solution,lactated 1000 mL doxycycline 100 mg in D5W 250 mL (VIBRAMYCIN) 100 mg 09/07 0033 insulin regular, human 5 Units 0127 GLUCOSE, BLOOD (POC) 0216 Discharged documented in this encounterMain Campus Medical Center06-06-2022 History of Present illness Narrative* Jen Bergman [...] Weight mgmt/activity No change (09/23/2020) Concerns: N/A Soil Conservationist plan for next outreach: Will follow up in about 3wks. Signature Jen Bergman RN September 06, 2021 documented in this encounterMain Campus Medical Center05-27-2022 History of Present illness Narrative* Janie Pickett, VISUAL EDUCATION DIRECTOR.BARREL PAINTER - 08/27/2021 8:42 AM EDT Subjective Important [...] (38-113), AST and ALT ok Moved from [facility] at some point. Was taking actos plus Metformin. Eventually Primary Care Provider Added basal insulin. 10/2020: first time office visit with Janie Pickett APRN.LEX for diabetes management. [facility] reviewed prior to today's office visit. Any changes made at our last diabetes management visit were abstracted accordingly (if applicable). Today's Office Visit: Orals: Actos 45 mg daily, Metformin ER 500 mg 2 tabs at breakfast and dinner, Basal insulin (dosed in units) Supper dose: Other: trulicity 1.5 mg, recently titrated from 0.75 mg weekly by Primary Care Provider self monitoring blood glucose data: testing often times 2x/day, admits he won't [...] Smokeless tobacco: Never Used Tobacco comment: Smokes [place] Vaping Use Vaping Use: Never used Substance [...] tablets before breakfast and before supper Insulin [place], Disposable, (COMFORT EZ PEN NEEDLES) 29 gauge x 1/2 1 Each once daily. insulin glargine (LANTUS [...] this visit. Physical Exam documented in this encounterMain Campus Medical Center05-13-2022 Miscellaneous Notes* Telephone Encounter - Fermin Dowell [...] 12, 2021 2:42 PM documented in this encounterMain Campus Medical Center05-11-2022 History of Present illness Narrative* Belgica Vega, DO - 08/11/2021 4:25 PM EDT Images from the original note were not included. Belgica Vega [address] [place] [address] Visit Date: August 11, 2021 Mr.Jim Najma Ashton Date of : 1960 MRN/E #: [id number] History of Present Illness José Manuel Ashton [...] Smokeless tobacco: Never Used Tobacco comment: Smokes [place] Vaping Use Vaping Use: Never used Substance [...] breakfast and before supper 120tablet 1 Insulin [place], Disposable, (COMFORT EZ PEN NEEDLES) 29 gauge x 1/2 1 Each once daily. 100 Each 3 [...] 127/79 Pulse 94 Temp 98.3 Ht 5' 10 (1.78m) Wt 270 lb (122.5kg) BMI 38.74 [...] 07/05/2021 1.97 1.00 - 4.00 k/uL Final Dyer% 07/05/2021 7.0 % Final Abs [place] 07/05/2021 0.57 <0.87 k/uL Final Eosin% 07/05/2021 [...] (A) 74 - 99 mg/dL Final The [place] Diabetes Association (ADA) provides guidance for cutoff [...] Standards of Medical Care in Diabetes 2016, [place] Diabetes Association. Diabetes Care. 2016.39(Suppl 1). BUN [...] Desk Reference: National Heart, Lung, and Blood [place]. National Institutes of Health. 2001: NIH Publication [...] 11.6 (A) 4.3 - 5.6 % Final [place] Diabetes Association guidelines indicate that patients with HgbA1c in the range 5.7-6.4% are at increased risk for development of diabetes, and intervention by lifestyle modification may be beneficial. HgbA1c greater or equal to 6.5% is considered diagnostic of diabetes. Estimated Average Glucose 07/05/2021 286 mg/dL Final eAG: (Estimated average glucose) is a calculated value from HgbA1c and is hospital sales representative of the average blood glucose level [...] units of vitamin D daily,Which is available [id number] 7. Mixed hyperlipidemia - ICD9: 272.2, ICD10: [...] ICD9: V15.81, ICD10: Z91.14 Encourage compliance Belgica Vega, Return in about 1 month (around 09/11/2021) for Medication follow-up, Hypertension, Diabetes, Visit for re-check. If symptoms persist, worsen, or no improvement, patient is to call 911 and/or go to the nearest ED. documented in this encounterMain Campus Medical Center05-09-2022 History of Present illness Narrative* SWETHA Black - 08/09/2021 3:40 PM EDT Radiology Service [...] DEPARTMENT: MR; Exam(s) Completed: Body: Rectal SIGNATURE: Liv Schneider SWETHA Kenney PATIENT NAME: José Manuel Ashton DATE: August 09, 2021 TIME: 4:14 PM documented in this encounterMain Campus Medical Center05-05-2022 History of Present illness Narrative* Jen Bergman RN - 08/05/2021 11:58 AM EDT PRIMARY CARE COORDINATION FOLLOW-UP NOTE Patient identified by name and date of . YES Spoke to patient Summary: PCC called pt for routine f/u. Pt is doing alright. States that he is hanging in here. Pt hasn't been checking his blood sugars. Per pt, it wigs me out. Pt doesn't like to see his sugars [...] Weight mgmt/activity No change (09/23/2020) Concerns: N/A Soil Conservationist plan for next outreach: Will follow up in about 3wks. Signature Jen Bergman RN August 05, 2021 documented in this encounterMain Campus Medical Center04-25-2022 Miscellaneous Notes* Telephone Encounter - TAMMY Coffey [...] Bergman RN - 07/23/2021 9:35 AM EDT Martin Munoz. Pt needs a refill on his Metformin. Refill pended. Thanks. Jen Bergman RN documented in this encounterMain Campus Medical Center04-21-2022 History of Present illness Narrative* Jen Bergman RN - 07/22/2021 3:34 PM EDT PRIMARY CARE COORDINATION FOLLOW-UP NOTE Patient identified by name and date of . YES Spoke to patient Summary: PCC called for routine f/u. States that he is hanging in here. Going day by day I guess. Admitsto not checking his blood sugars - encouraged to do so. Pt will try to get back to checking his sugars. States that he is taking his meds though. Confirmed pt's DM meds. Ordered as... dulaglutide [...] Weight mgmt/activity No change (09/23/2020) Concerns: N/A Soil Conservationist plan for next 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 Signature Jen Bergman RN July 22, 2021 documented in this encounterMain Campus Medical Center04-05-2022 Miscellaneous Notes* Telephone Encounter - Belgica Vega DO - 07/06/2021 6:30 PM EDT Please notify patient received the labs, blood sugar was 397. Encourage patient to take Lantus nightly. Recommend patient follow-up with endocrinology Recommend if patient feels unwell that he call 911. Can discuss results at appointment Thank you, Belgica Vega D.O. documented in this encounterMain Campus Medical Center03-31-2022 History of Present illness Narrative* Janie Picktet, VISUAL EDUCATION DIRECTOR.BARREL PAINTER - 07/01/2021 8:41 AM EDT Subjective Important [...] AST ALT Alkaline Phosphatase ok Moved from [facility] at some point. Was taking actos plus Metformin. Eventually Primary Care Provider Added basal insulin. 10/2020: first time office visit with Janie Pickett APRN.LEX for diabetes management. Previous diabetes related labs from [facility] reviewed prior to today's office visit. Any changes made at our last diabetes management visit were abstracted accordingly (if applicable). Today's Office Visit: Orals: Actos 45 mg daily, Metformin ER 500 mg 2 tabs at breakfast and dinner, Basal insulin (dosed in units) Supper dose: lantus 14 self monitoring blood glucose data: testing often times 2x/day, admits he won't [...] Smokeless tobacco: Never Used Tobacco comment: Smokes [place] Vaping Use Vaping Use: Never used Substance [...] 1 tablet by mouth once daily. Insulin [place], Disposable, (COMFORT EZ PEN NEEDLES) 29 gauge x 1/2 1 Each once daily. alcohol swabs (ALCOHOL PREP PADS) Apply 1 application to affected area as directed. Objective There were no vitals taken for this visit. Physical Exam documented in this encounterMain Campus Medical Center12-06-2021 History of Past illness Narrative* Problem Noted Date Resolved Date Microscopic hematuria 03/08/2021 01/17/2022 Weakness 05/05/2020 06/15/2020 Decreased mobility and endurance 05/05/2020 06/15/2020 documented as of this encounter (statuses as of 01/17/2022) [facility] of Past illness Narrative* Problem Noted Date Resolved Date Microscopic hematuria 03/08/2021 01/17/2022 Weakness 05/05/2020 06/15/2020 Decreased mobility and endurance 05/05/2020 06/15/2020 documented as of this encounter (statuses as of 01/18/2022) [facility] of Past illness Narrative* Problem Noted Date Resolved Date Microscopic hematuria 03/08/2021 01/17/2022 Weakness 05/05/2020 06/15/2020 Decreased mobility and endurance 05/05/2020 06/15/2020 documented as of this encounter (statuses as of 01/18/2022) [facility] of Past illness Narrative* Problem Noted Date Resolved Date Weakness 05/05/2020 06/15/2020 Decreased mobility and endurance 05/05/2020 06/15/2020 documented as of this encounter (statuses as of 07/01/2021) [facility] of Past illness Narrative* Problem Noted Date Resolved Date Weakness 05/05/2020 06/15/2020 Decreased mobility and endurance 05/05/2020 06/15/2020 documented as of this encounter (statuses as of 07/06/2021) [facility] of Past illness Narrative* Problem Noted Date Resolved Date Weakness 05/05/2020 06/15/2020 Decreased mobility and endurance 05/05/2020 06/15/2020 documented as of this encounter (statuses as of 07/22/2021) [facility] of [facility] illness Narrative* Problem Noted Date Resolved Date Weakness 05/05/2020 06/15/2020 Decreased mobility and endurance 05/05/2020 06/15/2020 documented as of this encounter (statuses as of 07/26/2021) [facility] of [facility] illness Narrative* Problem Noted Date Resolved Date Weakness 05/05/2020 06/15/2020 Decreased mobility and endurance 05/05/2020 06/15/2020 documented as of this encounter (statuses as of 08/05/2021) [facility] of [facility] illness Narrative* Problem Noted Date Resolved Date Weakness 05/05/2020 06/15/2020 Decreased mobility and endurance 05/05/2020 06/15/2020 documented as of this encounter (statuses as of 08/10/2021) [facility] History of Past illness Narrative* Problem Noted Date Resolved Date Weakness 05/05/2020 06/15/2020 Decreased mobility and endurance 05/05/2020 06/15/2020 documented as of this encounter (statuses as of 08/11/2021) [facility] History of Past illness Narrative* Problem Noted Date Resolved Date Weakness 05/05/2020 06/15/2020 Decreased mobility and endurance 05/05/2020 06/15/2020 documented as of this encounter (statuses as of 08/13/2021) [facility] History of Past illness Narrative* Problem Noted Date Resolved Date Weakness 05/05/2020 06/15/2020 Decreased mobility and endurance 05/05/2020 06/15/2020 documented as of this encounter (statuses as of 08/27/2021) [facility] History of Past illness Narrative* Problem Noted Date Resolved Date Weakness 05/05/2020 06/15/2020 Decreased mobility and endurance 05/05/2020 06/15/2020 documented as of this encounter (statuses as of 09/06/2021) [facility] History of Past illness Narrative* Problem Noted Date Resolved Date Weakness 05/05/2020 06/15/2020 Decreased mobility and endurance 05/05/2020 06/15/2020 documented as of this encounter (statuses as of 09/08/2021) [facility] History of Past illness Narrative* Problem Noted Date Resolved Date Weakness 05/05/2020 06/15/2020 Decreased mobility and endurance 05/05/2020 06/15/2020 documented as of this encounter (statuses as of 09/17/2021) [facility] History of Past illness Narrative* Problem Noted Date Resolved Date Weakness 05/05/2020 06/15/2020 Decreased mobility and endurance 05/05/2020 06/15/2020 documented as of this encounter (statuses as of 09/20/2021) [facility] History of Past illness Narrative* Problem Noted Date Resolved Date Weakness 05/05/2020 06/15/2020 Decreased mobility and endurance 05/05/2020 06/15/2020 documented as of this encounter (statuses as of 09/20/2021) [facility] History of Past illness Narrative* Problem Noted Date Resolved Date Weakness 05/05/2020 06/15/2020 Decreased mobility and endurance 05/05/2020 06/15/2020 documented as of this encounter (statuses as of 10/05/2021) [facility] History of Past illness Narrative* Problem Noted Date Resolved Date Weakness 05/05/2020 06/15/2020 Decreased mobility and endurance 05/05/2020 06/15/2020 documented as of this encounter (statuses as of 10/05/2021) [facility] History of Past illness Narrative* Problem Noted Date Resolved Date Weakness 05/05/2020 06/15/2020 Decreased mobility and endurance 05/05/2020 06/15/2020 documented as of this encounter (statuses as of 10/14/2021) [facility] History of Past illness Narrative* Problem Noted Date Resolved Date Weakness 05/05/2020 06/15/2020 Decreased mobility and endurance 05/05/2020 06/15/2020 documented as of this encounter (statuses as of 10/26/2021) [facility] History of Past illness Narrative* Problem Noted Date Resolved Date Weakness 05/05/2020 06/15/2020 Decreased mobility and endurance 05/05/2020 06/15/2020 documented as of this encounter (statuses as of 10/27/2021) [address]02-2021 History of Past illness Narrative* Problem Noted Date Resolved Date Weakness 05/05/2020 06/15/2020 Decreased mobility and endurance 05/05/2020 06/15/2020 documented as of this encounter (statuses as of 11/01/2021) [facility] History of Past illness Narrative* Problem Noted Date Resolved Date Weakness 05/05/2020 06/15/2020 Decreased mobility and endurance 05/05/2020 06/15/2020 documented as of this encounter (statuses as of 11/05/2021) [facility] History of Past illness Narrative* Problem Noted Date Resolved Date Weakness 05/05/2020 06/15/2020 Decreased mobility and endurance 05/05/2020 06/15/2020 documented as of this encounter (statuses as of 11/09/2021) [facility] History of Past illness Narrative* Problem Noted Date Resolved Date Weakness 05/05/2020 06/15/2020 Decreased mobility and endurance 05/05/2020 06/15/2020 documented as of this encounter (statuses as of 11/18/2021) [facility] History of Past illness Narrative* Problem Noted Date Resolved Date Weakness 05/05/2020 06/15/2020 Decreased mobility and endurance 05/05/2020 06/15/2020 documented as of this encounter (statuses as of 11/22/2021) [facility] History of Past illness Narrative* Problem Noted Date Resolved Date Weakness 05/05/2020 06/15/2020 Decreased mobility and endurance 05/05/2020 06/15/2020 documented as of this encounter (statuses as of 11/30/2021) [facility] History of Past illness Narrative* Problem Noted Date Resolved Date Weakness 05/05/2020 06/15/2020 Decreased mobility and endurance 05/05/2020 06/15/2020 documented as of this encounter (statuses as of 12/03/2021) [facility] History of Past illness Narrative* Problem Noted Date Resolved Date Weakness 05/05/2020 06/15/2020 Decreased mobility and endurance 05/05/2020 06/15/2020 documented as of this encounter (statuses as of 12/20/2021) [facility] History of Past illness Narrative* Problem Noted Date Resolved Date Weakness 05/05/2020 06/15/2020 Decreased mobility and endurance 05/05/2020 06/15/2020 documented as of this encounter (statuses as of 12/28/2021) [facility] History of Past illness Narrative* Problem Noted Date Resolved Date Weakness 05/05/2020 06/15/2020 Decreased mobility and endurance 05/05/2020 06/15/2020 documented as of this encounter (statuses as of 01/04/2022) [facility] History of Past illness Narrative* Problem Noted Date Resolved Date Weakness 05/05/2020 06/15/2020 Decreased mobility and endurance 05/05/2020 06/15/2020 documented as of this encounter (statuses as of 01/07/2022) [facility] History of Past illness Narrative* Problem Noted Date Resolved Date Weakness 05/05/2020 06/15/2020 Decreased mobility and endurance 05/05/2020 06/15/2020 documented as of this encounter (statuses as of 01/14/2022) [facility] History of Past illness Narrative* Problem Noted Date Resolved Date Weakness 05/05/2020 06/15/2020 Decreased mobility and endurance 05/05/2020 06/15/2020 documented as of this encounter (statuses as of 01/14/2022) [facility] History of Past illness Narrative* Problem Noted Date Diagnosed Date Resolved Date Weakness 05/05/2020 06/15/2020 Decreased mobility and endurance 05/05/2020 06/15/2020 documented as of this encounter (statuses as of 02/07/2023) [facility] Malignant neoplasm of rectosigmoid junction (HCC) Malignant neoplasm of rectosigmoid [facility] Diabetes mellitus due to [...] Unspecified essential hypertension [facility] Diagnosis Hospital discharge follow-up- Primary Other [...] other eye conditions [facility] Diagnosis Abscess of neck- Primary Cellulitis [...] 35-39.9 Obesity, unspecified [facility] Diagnosis Benign prostatic hyperplasia with nocturia- Primary Hematuria, microscopic Microscopic hematuria Screening PSA (prostate specific antigen) Special screening for malignant neoplasm of prostate Nocturia [facility] Diagnosis Hypertension, essential- Primary Unspecified essential [...] of both eyes documented in this encounter [facility] note* Diagnosis Glaucoma suspect of both eyes- Primary Preglaucoma, 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 without macular edema associated with type 2 diabetes mellitus (HCC) Nuclear senile cataract of both eyes [facility] Diagnosis Hypertension, essential- Primary Unspecified essential [...] of right eye [facility] Diagnosis Stage 3a chronic kidney disease (HCC)- Primary Type 2 diabetes mellitus with stage 3a chronic kidney disease, with long-term current use of insulin ([facility]) Hypertension, essential Unspecified essential hypertension Mixed hyperlipidemia Chronic bilateral low back pain with left-sided sciatica Marijuana use Cannabis abuse, unspecified Vitamin D deficiency Unspecified vitamin D deficiency Obesity, Class II, BMI 35-39.9 Obesity, unspecified Severe episode of recurrent major depressive disorder, without psychotic features ([facility]) [facility] Diagnosis Current moderate episode of major depressive disorder without prior episode (HCC)- Primary [facility] Diagnosis Episode of recurrent major depressive disorder, unspecified depression episode severity (HCC)- Primary [facility] Diagnosis Hypertension, essential- Primary Unspecified essential hypertension Bilateral leg edema Edema Diabetes mellitus due to underlying condition, uncontrolled, with hyperglycemia ([facility]) H/O medication noncompliance Personal history of noncompliance [...] mood disorder Stage 3a chronic kidney disease ([facility]) Encounter for immunization Need for other specified prophylactic vaccination against single bacterial disease [facility] Diagnosis Needs assistance with community resources- Primary Distressed about housing issues Other specified housing or economic circumstances documented in this encounter [facility] note* Diagnosis Hospital discharge follow-up- Primary Other [...] of insulin (HCC) [facility] Diagnosis Nocturia Screening PSA (prostate specific antigen) Special screening for malignant neoplasm of prostate Hematuria, microscopic Microscopic hematuria Benign prostatic hyperplasia with nocturia documented in this encounter [facility] note* Diagnosis Hypertension, essential- Primary Unspecified essential [...] unspecified vomiting type [facility] Diagnosis History of rectal cancer- Primary Personal history of malignant neoplasm of rectum, rectosigmoid junction, and anus Pulmonary nodules Other nonspecific abnormal finding of lung field Hip pain Pain in joint, pelvic region and thigh Spinal stenosis of lumbar region with neurogenic claudication Spinal stenosis, lumbar region, with neurogenic claudication [facility] Diagnosis OPENED IN ERROR- Primary To allow closing an encounter opened in error (used in SmartSet) [facility] Diagnosis Hypertension, essential- Primary Unspecified essential [...] extremity edema Edema [facility] Diagnosis Pain in hip- Primary Pain in joint, pelvic region and thigh Lumbar back pain with radiculopathy affecting lower extremity Chronic left hip pain Pain in joint, pelvic region and thigh [facility] Diagnosis Nuclear senile cataract of both eyes- Primary Pain of left hip [facility] Diagnosis Encounter for annual physical exam- [...] of right eye [facility] Diagnosis Chronic left hip pain Pain in joint, pelvic region and thigh Nuclear senile cataract of right eye [facility] Diagnosis Chronic left hip pain Pain in joint, pelvic region and thigh Nuclear senile cataract of right eye [facility] Diagnosis History of rectal cancer- Primary Personal history of malignant neoplasm of rectum, rectosigmoid junction, and anus Nuclear senile cataract of right eye [facility] Diagnosis Lumbar back pain with radiculopathy affecting lower extremity- Primary Chronic left hip pain Pain in joint, pelvic region and thigh Spinal stenosis of lumbar region, unspecified whether neurogenic claudication present Lumbar radiculopathy Thoracic or lumbosacral neuritis or radiculitis, unspecified Chronic bilateral low back pain with left-sided sciatica Nuclear senile cataract of right eye [facility] Diagnosis Pseudophakia of both eyes- Primary Lens replaced by other means [facility] Diagnosis Lumbar back pain with radiculopathy affecting lower extremity- Primary Chronic bilateral low back pain with left-sided sciatica Lumbar back pain with radiculopathy affecting lower extremity- Primary [facility] Diagnosis Hospital discharge follow-up- Primary [...] lower extremity- Primary [facility] Diagnosis Pain in left hip- Primary Pain in joint, pelvic region and thigh [facility] Diagnosis Precordial pain- Primary OTT (dyspnea on exertion) Other dyspnea and respiratory abnormality Primary hypertension Unspecified essential hypertension Dyslipidemia Other and unspecified hyperlipidemia Demand ischemia (HCC) Other acute and subacute form of ischemic heart disease [facility]* Diagnosis Nocturia- Primary Benign prostatic hyperplasia with nocturia [facility] Diagnosis Cutaneous abscess of abdominal wall- [...] Unspecified essential hypertension [facility] Diagnosis OTT (dyspnea on exertion) Other dyspnea and respiratory abnormality [facility] Diagnosis Precordial pain OTT (dyspnea on exertion) Other dyspnea and respiratory abnormality Primary hypertension Unspecified essential hypertension [facility] Diagnosis Hypertension, essential- Primary Unspecified essential [...] or radiculitis, unspecified [facility] Diagnosis Primary osteoarthritis of left hip- Primary Primary localized osteoarthrosis, pelvic region and thigh Primary osteoarthritis of left hip Primary localized osteoarthrosis, pelvic region and thigh [facility] Diagnosis Poorly controlled type 2 diabetes mellitus (HCC) Type II or unspecified type diabetes mellitus without mention of complication, not stated as uncontrolled documented in this encounter [facility] note* Diagnosis Anemia of renal disease- Primary Anemia in chronic kidney disease Stage 3b chronic kidney disease (HCC) Vitamin D deficiency Unspecified vitamin D deficiency Other proteinuria documented in this encounter [facility] note* Diagnosis Nocturia- Primary Benign prostatic hyperplasia with nocturia Screening PSA (prostate specific antigen) Special screening for malignant neoplasm of prostate documented in this encounter [facility] note* Diagnosis Type 2 diabetes mellitus with both eyes affected by moderate nonproliferative retinopathy without macular edema, with long-term current use of insulin (HCC)- Primary Pseudophakia of both eyes Lens replaced by other means documented in this encounter [facility] note* Diagnosis Anemia of renal disease- Primary [...] (of renal origin) documented in this encounter [facility] note* Diagnosis History of rectal cancer- Primary Personal history of malignant neoplasm of rectum, rectosigmoid junction, and anus documented in this encounter [facility] note* Diagnosis Other specified postprocedural states- Primary Spinal stenosis, lumbar region with neurogenic claudication documented in this encounter [facility]* Diagnosis Pre-op examination- Primary Preoperative examination, [...] was a heavier drinking when he was younger. Denies any recent use of alcohol. * [...] at today's visit. [facility] Diagnosis Pre-op examination- Primary Preoperative examination, [...] and bone disorder [facility] Pre-op examination- Primary Preoperative examination, [...] disease, with long-term current use of insulin ([facility]) Obesity, Class II, BMI 35-39.9 Obesity, unspecified [...] chronic dialysis (HCC) Diabetes mellitus with nephropathy ([facility]) Type II or unspecified type diabetes mellitus with renal manifestations, not stated as uncontrolled Dietary counseling and surveillance Dietary surveillance and counseling Vitamin D deficiency Unspecified vitamin D deficiency Hypertension, essential Unspecified essential hypertension Hyperuricemia Other abnormal blood chemistry Other proteinuria [facility] noteNo assessment information availableWThe [facility] Work Phone: Evaluation note* Diagnosis Chills- Primary Chills (without fever) Chills Chills (without fever) Shakes Abnormal involuntary movements History of chronic renal failure Elevated lactic acid level Chronic pain syndrome documented in this encounter [facility] Plan of care note* Visit Details Visit Type -SN SOC Discipline -Custodial Problems Problem Description Start Date Status Goals [...] ed in this visit SN Diabetes Disciplines: 10/22/2023 [...] indicated to help with indigestion. Taking an [id number] probiotic or eating yogurt with live and [...] precautions/restrictio ns:spinal precautions documented in this encounter [facility] Plan of care note* Visit Details [place] [place] Discipline -Grinder Machine Setter Problems Problem Description Start Date Status Goals Interve ntions [facility] [place] Disciplines: Skilled Services 10/22/2023 Resolved on 10/26/2023 1 goal linked to scheduled/documen kurt intervention 1 goal intervention scheduled/document ed in this visit [facility] [place] Medicine Physician Care Needs Disciplines: [facility] 10/26/2023 Resolved on 10/26/2023 1 goal linked to scheduled/documen kurt intervention 1 goal intervention scheduled/document ed in this visit [facility] [place] Evaluation and Treatment Disciplines: [facility] 10/26/2023 Resolved on 10/26/2023 1 goal linked to scheduled/documen kurt intervention 1 goal intervention scheduled/document ed in this visit [facility] Social/Emotional Support Disciplines: [facility] 10/26/2023 Resolved on 10/26/2023 1 goal linked to scheduled/documen kurt intervention 1 goal intervention scheduled/document ed in this visit [facility] Caregiver Willingness Disciplines: [facility] 10/26/2023 Resolved on 10/26/2023 1 goal linked to scheduled/documen kurt intervention 1 goal intervention scheduled/document ed in this visit Goals Goal Associated Problem Outcome Goal Met? Visit Notes Patient will be referred to additional discipline as needed REGIONAL BUSINESS DEVELOPMENT MANAGER Referral Completed Yes Patients Retirement Care Needs Will Be Met Description: Patients alf care needs will be met by information provided and referrals made. REGIONAL BUSINESS DEVELOPMENT MANAGER Retirement Care Needs Completed Yes Complete General Evaluation and Treatment Description: patient and caregiver will demonstrate compliance with and participation in the plan of treatment. REGIONAL BUSINESS DEVELOPMENT MANAGER General Evaluation and Treatment Completed Yes Provide Social/Emotional Support Description: patient will have adequate social emotional support as evidence by consistent contact with family and friends. REGIONAL BUSINESS DEVELOPMENT MANAGER Social/Emotional Support Completed Yes Determine Caregiver Willingness to Care for Patient Description: Caregiver will demonstrate willingness and ability to adequately care for the patient as evidence by providing a safe home environment and providing assistance with all ADL/IADL needs. REGIONAL BUSINESS DEVELOPMENT MANAGER Caregiver Willingness Completed Yes Interventions Intervention Associated Problem/Goal Status Variance Visit Notes REGIONAL BUSINESS DEVELOPMENT MANAGER evaluation and treatment Description: REGIONAL BUSINESS DEVELOPMENT MANAGER Referral eval and treat for Community [employer] or Mom's meals?, eligible for PASSPORT. Pt could use both for personal care and homemaking assist. Problem:REGIONAL BUSINESS DEVELOPMENT MANAGER Referral Goal:Patient will be referred to additional discipline as needed Completed marine oil terminal superintendent care planning Problem:REGIONAL BUSINESS DEVELOPMENT MANAGER Rehabilitation Medicine Physician Care Needs Goal:Patients Retirement Care Needs Will Be Met Completed Patients alf care needs will be met by information provided and referral made to [facility] for PASSPORT. REGIONAL BUSINESS DEVELOPMENT MANAGER Assessment Problem:REGIONAL BUSINESS DEVELOPMENT MANAGER General Evaluation and Treatment Goal:Complete General Evaluation and Treatment Completed patient and caregiver fully participated in plan of treatment. Adequate social/emotional support Problem:REGIONAL BUSINESS DEVELOPMENT MANAGER Social/Emotional Support Goal:Provide Social/Emotional Support Completed patient has adequate natural supports. Caregiver Instruction Problem:REGIONAL BUSINESS DEVELOPMENT MANAGER Caregiver Willingness Goal:Determine Caregiver Willingness to Care for Patient Completed Caregiver demonstrates willingness and demonstrates ability to assitst in patients ADLs/IADLs needs. 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 [facility] Visit Details [...] with cg assistance [facility] Visit Details [...] time for safety documented in this encounter [facility] Plan of care note* Visit Details Visit Type -SN ROUTINE Discipline -Custodial Problems Problem Description Start Date Status Goals [...] symptoms of complications Other (specify reason) LYLE, Dry Instruct on diabetes disease process and [...] and spinal precautions documented in this encounter [facility] Plan of care note* Visit Details Visit Type -MINE PRODUCTION ENGINEER ROUTINE Discipline -Physical Therapy Problems Problem Description [...] and activity guidelines. documented in this encounter [facility] Plan of care note* Visit Details Visit Type -SN ROUTINE Discipline -Custodial Problems Problem Description Start Date Status Goals [...] and spinal precautions [facility] Details [...] x 4 min [facility] Visit Details Visit Type -MINE PRODUCTION ENGINEER ROUTINE Discipline -Physical Therapy Problems Problem Description [...] and activity guidelines. [facility] Visit Details Visit Type -MINE PRODUCTION ENGINEER ROUTINE Discipline -Physical Therapy Problems Problem Description [...] and activity guidelines. [facility] Visit Details Visit Type -SN ROUTINE Discipline -Custodial Problems Problem Description Start Date Status Goals [...] and spinal precautions documented in this encounter [facility] Plan of care note* Visit Details [...] occasional unilateral support [facility] Visit Details Visit Type -MINE PRODUCTION ENGINEER ROUTINE Discipline -Physical Therapy Problems Problem Description [...] and activity guidelines. documented in this encounter [facility] Plan of care note* Visit Details Visit Type -SN DISC DC W VIS IT Discipline -Custodial Problems Problem Description Start Date Status Goals [...] and spinal precautions documented in this encounter [facility] Plan of care note* Visit Details [...] home exercise program. documented in this encounter [facility] for referral (narrative)* Diagnostic Procedure Only (Routine) - Authorized Specialty Diagnoses / Procedures Referred By Contac t Referred To Contact XR IMAGING Diagnoses Pain in hip Chronic left hip pain Procedures XR INJ ARTHROGRAM HIP LEFT INJECTION HIP ARTHROGRAPHY W/O ANESTHESIA Binh Lake DO [address] [place] [id number] Xr Imaging Referral ID Status Reason Start Date Expiration Date Visits Requested Visits Authorized [id number] Authorized Auto-Generat ed Referral 07/01/2022 07/31/2023 1 1 * MRI/CT (Routine) - Authorized Specialty Diagnoses / Procedures Referred By Contac t Referred To Contact MR IMAGING Diagnoses Pain in hip Chronic left hip pain Procedures MRI ARTHROGRAM HIP LEFT MRI ANY JT LOWER EXTREM W/CONTRAST MATERIAL Binh Lake DO [address] [place] [address] Mr Imaging Referral ID Status Reason Start Date Expiration Date Visits Requested Visits Authorized [id number] Authorized Auto-Generat ed Referral 07/01/2022 07/31/2023 1 1 * Diagnostic Procedure Only (Routine) - Pending Review Specialty Diagnoses / Procedures Referred By Contac t Referred To Contact XR IMAGING Diagnoses Lumbar back pain with radiculopathy affecting lower extremity Procedures XR LUMBAR LIMITED 2V AP/LAT RADEX SPINE LUMBOSACRAL 2/3 VIEWS Binh Lake, DO [address] [place] [id number] Xr Imaging Referral ID Status Reason Start Date Expiration Date Visits Requested Visits Authorized [id number] Pending Review Auto-Generat ed Referral 07/01/2022 07/31/2023 1 1 * Diagnostic Procedure Only (Routine) - Pending Review Specialty Diagnoses / Procedures Referred By Contac t Referred To Contact XR IMAGING Diagnoses Pain in hip Chronic left hip pain Procedures XR PELVIS 1V AP RADIOLOGIC EXAMINATION PELVIS 1/2 VIEWS Binh Lake, DO [address] [place] [id number] Xr Imaging Referral ID Status Reason Start Date Expiration Date Visits Requested Visits Authorized [id number] Pending Review Auto-Generat ed Referral 07/01/2022 07/31/2023 1 1 [facility] for referral (narrative)* Diagnostic Procedure Only (Routine) - Closed Specialty Diagnoses / Procedures Referred By Contac t Referred To Contact XR IMAGING Diagnoses Pain in hip Chronic left hip pain Procedures XR INJ ARTHROGRAM HIP LEFT INJECTION HIP ARTHROGRAPHY W/O ANESTHESIA Binh Lake DO [address] [place] [id number] Xr Imaging Referral ID Status Reason Start Date Expiration Date V isits Requested Visits Authorized [id number] Closed Auto-Generate d Referral 07/01/2022 07/31/2023 1 1 [facility] for referral (narrative)* Outpatient Procedure (Routine) - Pending Review Specialty Diagnoses / Procedures Referred By Contac t Referred To Contact [facility] Diagnoses History of rectal cancer Procedures COLONOSCOPY SCREENING COLONOSCOPY FLX DX W/COLLJ SPEC WHEN PFRMD Artem Ahmadi MD [address] [address] [facility] [place] [address] [phone] Referral ID Status Reason Start Date Expiration Date Visits Requested Visits Authorized [id number] Pending Review Auto-Generat ed Referral 09/02/2022 09/03/2023 1 1 [facility] for referral (narrative)* Outpatient Procedure (Routine) - Authorized Specialty Diagnoses / Procedures Referred By Contac t Referred To Contact [facility] Diagnoses OTT (dyspnea on exertion) Procedures ECHO ECHO TTHRC R-T 2D W/WOM-MODE COMPL SPEC&COLR D Sukumar Toney MD [address] [place] [address] [facility] [place] [address] [place] [address] Referral ID Status Reason Start Date Expiration Date Visits Requested Visits Authorized [id number] Authorized Auto-Generat ed Referral 10/13/2022 10/13/2023 1 1 * Diagnostic Procedure Only (Routine) - Authorized Specialty Diagnoses / Procedures Referred By Contac t Referred To Contact [facility] Diagnoses Precordial pain OTT (dyspnea on exertion) Primary hypertension Procedures NM CARDIAC PERF STRESS/PHARM MYOCARDIAL SPECT MULTIPLE STUDIES Sukumar Toney MD [address] [place] [address] [facility] [address] [phone] Referral ID Status Reason Start Date Expiration Date Visits Requested Visits Authorized [id number] Authorized Auto-Generat ed Referral 10/13/2022 11/12/2023 1 1 T [facility] for referral (narrative)* Outpatient Procedure (Routine) - Closed Specialty Diagnoses / Procedures Referred By Vadim wiseman Referred To Contact [facility] Diagnoses OTT (dyspnea on exertion) Procedures ECHO ECHO TTHRC R-T 2D W/WOM-MODE COMPL SPEC&COLR D Sukumar Toney MD [address] [place] [address] [facility] [place] [address] [place] [address] Referral ID Status Reason Start Date Expiration Date V isits Requested Visits Authorized [id number] Closed Auto-Generate d Referral 10/13/2022 10/13/2023 1 1 T [facility] for referral (narrative)* Diagnostic Procedure Only (Routine) - Closed Specialty Diagnoses / Procedures Referred By Vadim wiseman Referred To Contact [facility] Diagnoses Precordial pain OTT (dyspnea on exertion) Primary hypertension Procedures NM CARDIAC PERF STRESS/PHARM MYOCARDIAL SPECT MULTIPLE STUDIES Sukumar Toney MD [address] [place] [address] [facility] [address] [phone] Referral ID Status Reason Start Date Expiration Date V isits Requested Visits Authorized [id number] Closed Auto-Generate d Referral 10/13/2022 11/12/2023 1 1 [facility] for referral (narrative)* Outpatient Procedure (Routine) - Pending Review Specialty Diagnoses / Procedures Referred By Vadim t Referred To Contact [facility] Diagnoses History of rectal cancer Procedures COLONOSCOPY SCREENING COLONOSCOPY FLX DX W/COLLJ SPEC WHEN Artem Osborne MD [address] [address] [facility] [place] [address] [place] [address] Referral ID Status Reason Start Date Expiration Date Visits Requested Visits Authorized [id number] Pending Review Auto-Generat ed Referral 4 02/19/2025 1 1 [facility] for referral (narrative)No reason for referral information [facility] Narrative* Diagnostic Procedure Only (Routine) - Closed Specialty Diagnoses / Procedures Referred By Contac t Referred To Contact XR IMAGING Diagnoses Pain in hip Chronic left hip pain Procedures XR INJ ARTHROGRAM HIP LEFT INJECTION HIP ARTHROGRAPHY W/O ANESTHESIA Binh Lake, DO [address] [place] [id number] Xr Imaging Referral ID Status Reason Start Date Expiration Date V isits Requested Visits Authorized [id number] Closed Auto-Generate d Referral 07/01/2022 07/31/2023 1 1 [facility] for visit Narrative* Outpatient Procedure (Routine) - Closed Specialty Diagnoses / Procedures Referred By Contac t Referred To Contact [facility] Diagnoses OTT (dyspnea on exertion) Procedures ECHO ECHO TTHRC R-T 2D W/WOM-MODE COMPL SPEC&COLR D Sukumar Toney MD [address] [place] [address] [facility] [place] [address] [place] [address] Referral ID Status Reason Start Date Expiration Date V isits Requested Visits Authorized [id number] Closed Auto-Generate d Referral 10/13/2022 10/13/2023 1 1 [facility] for visit Narrative* Diagnostic Procedure Only (Routine) - Closed Specialty Diagnoses / Procedures Referred By Contac t Referred To Contact [facility] Diagnoses Precordial pain OTT (dyspnea on exertion) Primary hypertension Procedures NM CARDIAC PERF STRESS/PHARM MYOCARDIAL SPECT MULTIPLE STUDIES Sukumar Toney MD [address] [place] [address] [facility] [address] [phone] Referral ID Status Reason Start Date Expiration Date V isits Requested Visits Authorized [id number] Closed Auto-Generate d Referral 10/13/2022 11/12/2023 1 1 [facility] Procedure (Routine) - Closed Specialty Diagnoses / Procedures Referred By Contellis t Referred To Contact Diagnoses History of rectal cancer Procedures COLONOSCOPY SCREENING COLONOSCOPY FLX DX W/COLLJ SPEC WHEN Artem Osborne MD [address] [address] Phone: tel: fax: [address] [address] Phone: tel: Referral ID Status Reason Start Date Expiration Date V isits Requested Visits Authorized [id number] Closed Auto-Generate d Referral 05/13/2024 08/11/2024 1 1 [facility] Reason for Referral Status Reason Specialty Diagnoses / Procedures Referred By Contact Referred To Contact Ref Not Required PCP Requested Referral Diagnoses Anxiety with depression Procedures CONSULT [facility] Belgica Herrera [address] [place] [address] Status Reason Specialty Diagnoses / Procedures Referred By Contact Referred To Contact Ref Not Required PCP Requested Referral Diagnoses Chronic bilateral low back pain with sciatica, sciatica laterality unspecified Procedures CONSULT TO PHYSICAL THERAPY (AG) Belgica Herrera [address] [place] [address] Status Reason Specialty Diagnoses / Procedures Referred By Contact Referred To Contact Authorized PCP Requested Referral Orthopedics Diagnoses Chronic bilateral low back pain with sciatica, sciatica laterality unspecified Procedures CONSULT TO ORTHOPAEDIC SURGERY NEW PATIENT VISIT LEVEL 5 Belgica Herrera [address] [place] [address] Status Reason Specialty Diagnoses / Procedures Referred By Contact Referred To Contact Authorized PCP Requested Referral Ent - Otolaryngology Diagnoses Dizziness Tinnitus aurium, bilateral Procedures CONSULT TO ENT NEW PATIENT VISIT LEVEL 5 Belgica Herrera [address] [place] [address] Status Reason Specialty Diagnoses / Procedures Referred By Contact Referred To Contact Authorized PCP Requested Referral Ophthalmology Diagnoses Diabetes mellitus due to underlying condition, uncontrolled, with hyperglycemia (HCC) Dizziness Procedures CONSULT TO OPHTHALMOLOGY NEW PATIENT VISIT LEVEL 5 Javier Belgica Brandon [facility] [place] [address] Status Reason Specialty Diagnoses / Procedures Referred By Contact Referred To Contact Authorized PCP Requested Referral Diagnoses Diabetes mellitus due to underlying condition, uncontrolled, with hyperglycemia (HCC) Obesity, Class II, BMI 35-39.9 Procedures CONSULT TO DIABETES EDUCATION NEW PATIENT VISIT LEVEL 5 Belgica Herrera [facility] [place] [address] Status Reason Specialty Diagnoses / Procedures Referred By Contact Referred To Contact Authorized PCP Requested Referral Orthopedics Diagnoses Left shoulder pain, unspecified chronicity Procedures CONSULT TO ORTHOPAEDIC SURGERY NEW PATIENT VISIT LEVEL 5 Belgica Herrera [facility] [place] [address] Status Reason Specialty Diagnoses / Procedures Referred By Contact Referred To Contact Ref Not Required PCP Requested Referral Diagnoses Left shoulder pain, unspecified chronicity Procedures CONSULT TO PHYSICAL THERAPY (AG) Belgica Herrera [facility] [place] [address] Status Reason Specialty Diagnoses / Procedures Referred By Contact Referred To Contact Authorized PCP Requested Referral Endocrinology Diagnoses Uncontrolled type 2 diabetes mellitus with hyperglycemia (HCC) Procedures CONSULT TO ENDOCRINOLOGY NEW PATIENT VISIT LEVEL 5 Belgica Herrera [facility] [place] [address] Status Reason Specialty Diagnoses / Procedures Referred By Contact Referred To Contact Authorized PCP Requested Referral Ophthalmology Diagnoses Screening for diabetic retinopathy Uncontrolled type 2 diabetes mellitus with hyperglycemia (HCC) Procedures CONSULT TO OPHTHALMOLOGY NEW PATIENT VISIT LEVEL 5 Belgica Herrera [facility] [place] [address] Status Reason Specialty Diagnoses / Procedures Referred By Contact Referred To Contact Ref Not Required PCP Requested Referral Neurology Diagnoses Chronic nausea Chronic vertigo Procedures CONSULT TO [place] [address] Status Reason Specialty Diagnoses / Procedures Referred By Contact Referred To Contact Authorized PCP Requested Referral Gastroenterology Diagnoses Drooling Procedures CONSULT TO GASTROENTEROLOGY NEW PATIENT VISIT LEVEL 5 Belgica Herrera [address] [place] [address] Status Reason Specialty Diagnoses / Procedures Referred By Contact Referred To Contact Authorized PCP Requested Referral Rheumatology Diagnoses Myalgia Procedures CONSULT TO RHEUM/IMMUN DISEASE NEW PATIENT VISIT LEVEL 5 Belgica Herrera [address] [place] [address] Specialty Diagnoses / Procedures Referred By Contac t Referred To Contact MR IMAGING Diagnoses Malignant neoplasm of rectosigmoid junction (HCC) Procedures MRI PELVIS WO/W IVCON MRI PELVIS W/WO CONTRAST Artem Ahmadi MD [address] [facility] [address] [place] [address] Mr Imaging Referral ID Status Reason Start Date Expiration Date V isits Requested Visits Authorized [id number] Closed Auto-Generate d Referral 06/10/2021 01/10/2022 1 1 Specialty Diagnoses / Procedures Referred By Contac t Referred To Contact Ophthalmology Diagnoses Screening for diabetic retinopathy Procedures CONSULT TO OPHTHALMOLOGY OFFICE/OUTPATIENT [facility] 60-74 MINUTES Belgica Vega DO [address] [facility] [address] [place] [address] Referral ID Status Reason Start Date Expiration Date Visits Requested Visits Authorized [id number] Authorized PCP Requested Referral 09/20/2021 09/20/2022 1 1 Specialty Diagnoses / Procedures Referred By Contac t Referred To Contact Nephrology Diagnoses Elevated serum creatinine Microalbuminuria Procedures CONSULT TO NEPHROLOGY OFFICE/OUTPATIENT [facility] MDM 60-74 MINUTES Belgica Vega DO [address] [facility] [address] [place] [address] Referral ID Status Reason Start Date Expiration Date Visits Requested Visits Authorized [id number] Authorized PCP Requested Referral 10/05/2021 10/05/2022 1 1 Specialty Diagnoses / Procedures Referred By Contac t Referred To Contact Psychology Diagnoses Anxiety and depression Difficulty controlling anger Oppositional defiant disorder with chronic irritability and anger Procedures CONSULT TO PSYCHOLOGY OFFICE/OUTPATIENT [facility] 60-74 MINUTES Belgica Vega DO [address] [place] [address] Referral ID Status Reason Start Date Expiration Date Visits Requested Visits Authorized [id number] Pending Review PCP Requested Referral 01/03/2022 01/03/2023 1 1 Specialty Diagnoses / Procedures Referred By Contac t Referred To Contact [facility] [place] Diagnoses Chronic bilateral low back pain with left-sided sciatica Procedures CONSULT TO [facility] OFFICE/OUTPATIENT [facility] 60-74 MINUTES Billy Martinez MD [address] [place] [address] Referral ID Status Reason Start Date Expiration Date Visits Requested Visits Authorized [id number] Authorized PCP Requested Referral 2 01/17/2023 1 1 Specialty Diagnoses / Procedures Referred By Contac t Referred To Contact Endocrinology Diagnoses Type 2 diabetes mellitus with stage 3a chronic kidney disease, with long-term current use of insulin (HCC) Obesity, Class II, BMI 35-39.9 Procedures CONSULT TO ENDOCRINOLOGY OFFICE/OUTPATIENT [facility] 60-74 MINUTES Billy Martinez MD [address] [place] [address] Referral ID Status Reason Start Date Expiration Date Visits Requested Visits Authorized [id number] Authorized PCP Requested Referral 2 01/17/2023 1 1 Specialty Diagnoses / Procedures Referred By Contac t Referred To Contact Endocrinology Diagnoses Diabetes mellitus due to underlying condition, uncontrolled, with hyperglycemia (HCC) Procedures CONSULT TO ENDOCRINOLOGY OFFICE/OUTPATIENT [facility] 60-74 MINUTES Belgica Vega DO [address] [place] [address] Referral ID Status Reason Start Date Expiration Date Visits Requested Visits Authorized [id number] Authorized PCP Requested Referral 2 03/01/2023 1 1 Specialty Diagnoses / Procedures Referred By Contac t Referred To Contact Oncology Diagnoses Malignant neoplasm of rectum (HCC) Procedures CONSULT TO ONCOLOGY OFFICE/OUTPATIENT [facility] 60-74 MINUTES Belgica Vega DO [address] [address] Referral ID Status Reason Start Date Expiration Date Visits Requested Visits Authorized [id number] Pending Review PCP Requested Referral 05/18/2022 05/18/2023 1 1 Specialty Diagnoses / Procedures Referred By Contac t Referred To Contact CT IMAGING Diagnoses Pulmonary nodules Procedures CT CHEST WO IVCON DIAGNOSTIC COMPUTED TOMOGRAPHY THORAX W/O CNTRST Rory Mendoza MD [address] [place] [address] Ct Imaging Referral ID Status Reason Start Date Expiration Date Visits Requested Visits Authorized [id number] Pending Review Auto-Generat ed Referral 06/05/2022 07/05/2023 1 1 Specialty Diagnoses / Procedures Referred By Contac t Referred To Contact Orthopedics Diagnoses Hip pain Procedures CONSULT TO ORTHOPAEDICS OFFICE/OUTPATIENT [facility] 60-74 MINUTES Rory Mendoza MD [address] [place] [address] Referral ID Status Reason Start Date Expiration Date Visits Requested Visits Authorized [id number] Pending Review PCP Requested Referral 06/01/2022 06/01/2023 1 1 Specialty Diagnoses / Procedures Referred By Contac t Referred To Contact Podiatry Diagnoses Diabetic peripheral neuropathy associated with type 2 diabetes mellitus (HCC) Onychomycosis Procedures CONSULT TO PODIATRY OFFICE/OUTPATIENT [facility] 60-74 MINUTES Belgica Vega DO [address] [place] [address] Referral ID Status Reason Start Date Expiration Date Visits Requested Visits Authorized [id number] Pending Review PCP Requested Referral 08/12/2022 08/12/2023 1 1 Specialty Diagnoses / Procedures Referred By Contac t Referred To Contact MR IMAGING Diagnoses Pain in hip Chronic left hip pain Procedures MRI ARTHROGRAM HIP LEFT MRI ANY JT LOWER EXTREM W/CONTRAST MATERIAL Binh Lake DO [address] [place] [address] Mr Imaging Referral ID Status Reason Start Date Expiration Date V isits Requested Visits Authorized [id number] Closed Auto-Generate d Referral 07/01/2022 07/31/2023 1 [...] SPINAL CANAL LUMBAR W/O CONTRAST MATERIAL Binh Lake, DO [address] [address] Mr Imaging Referral ID Status Reason Start Date Expiration Date Visits Requested Visits Authorized [id number] Authorized Auto-Generat ed Referral 09/02/2022 10/02/2023 1 [...] Procedures CONSULT TO PAIN MGT OFFICE/OUTPATIENT [facility] 60-74 MINUTES Binh Lake, DO [address] [address] Luis Carlos Lee MD [address] [place] [address] Referral ID Status Reason Start Date Expiration Date Visits Requested Visits Authorized [id number] Pending Review PCP Requested Referral 09/02/2022 09/02/2023 1 1 Specialty Diagnoses / Procedures Referred By Contac t Referred To Contact Orthopedics Diagnoses Lumbar back pain with radiculopathy affecting lower extremity Chronic bilateral low back pain with left-sided sciatica Procedures CONSULT TO ORTHOPAEDICS OFFICE/OUTPATIENT [facility] 60-74 MINUTES Binh Lake, DO [address] [address] Emerson Glaser MD [address] [place] [address] Referral ID Status Reason Start Date Expiration Date Visits Requested Visits Authorized [id number] Pending Review PCP Requested Referral 09/23/2022 12/22/2022 1 1 Specialty Diagnoses / Procedures Referred By Contac t Referred To Contact Dermatology Diagnoses Hidradenitis suppurativa Cutaneous abscess of abdominal wall Procedures CONSULT TO DERMATOLOGY OFFICE/OUTPATIENT [facility] 60-74 MINUTES Belgica Vega DO [address] [place] [address] Referral ID Status Reason Start Date Expiration Date Visits Requested Visits Authorized [id number] Pending Review PCP Requested Referral 09/28/2022 09/28/2023 1 1 Specialty Diagnoses / Procedures Referred By Contac t Referred To Contact Nephrology Diagnoses Stage 3 chronic kidney disease, unspecified whether stage 3a or 3b CKD (HCC) Hyponatremia Procedures CONSULT TO NEPHROLOGY OFFICE/OUTPATIENT [facility] 60-74 MINUTES Belgica Vega DO [address] [place] [address] Referral ID Status Reason Start Date Expiration Date Visits Requested Visits Authorized [id number] Pending Review PCP Requested Referral 09/28/2022 09/28/2023 1 1 Specialty Diagnoses / Procedures Referred By Contac t Referred To Contact Cardiology Diagnoses Myocardial infarction due to demand ischemia (HCC) Procedures CONSULT TO CARDIOLOGY OFFICE/OUTPATIENT [facility] 60-74 MINUTES Belgica Vega DO [address] [place] [address] Referral ID Status Reason Start Date Expiration Date Visits Requested Visits Authorized [id number] Pending Review PCP Requested Referral 09/28/2022 12/27/2022 1 1 Specialty Diagnoses / Procedures Referred By Contac t Referred To Contact Neurology Diagnoses Chronic bilateral low back pain with left-sided sciatica Spinal stenosis of lumbar region with neurogenic claudication Chronic left hip pain Lumbar radiculopathy Procedures CONSULT TO NEUROLOGY OFFICE/OUTPATIENT [facility] 60-74 MINUTES Belgica Vega DO [address] [place] [address] Referral ID Status Reason Start Date Expiration Date Visits Requested Visits Authorized [id number] Pending Review PCP Requested Referral 11/04/2022 11/04/2023 1 1 Specialty Diagnoses / Procedures Referred By Contac t Referred To Contact Dermatology Diagnoses Hidradenitis suppurativa Procedures CONSULT TO [facility]OLOGY [facility] [facility] 60-74 MINUTES Belgica Vega DO [address] [place] [address] Referral ID Status Reason Start Date Expiration Date Visits Requested Visits Authorized [id number] Pending Review PCP Requested Referral 11/04/2022 11/04/2023 1 1 Specialty Diagnoses / Procedures Referred By Contac t Referred To Contact Nutrition Diagnoses Diabetes mellitus due to underlying condition, uncontrolled, with hyperglycemia (HCC) H/O medication noncompliance Procedures CONSULT TO NUTRITION THERAPY MEDICAL NUTRITION ASSMT&IVNTJ INDIV EACH 15 SD MEDICAL NUTRITION ASSMT&IVNTJ INDIV EACH 15 SD MEDICAL NUTRITION ASSMT&IVNTJ INDIV EACH 15 SD MEDICAL NUTRITION ASSMT&IVNTJ INDIV EACH 15 SD Belgica Vega DO [address] [place] [address] Referral ID Status Reason Start Date Expiration Date Visits Requested Visits Authorized [id number] Pending Review PCP Requested Referral 11/04/2022 11/04/2023 1 1 Specialty Diagnoses / Procedures Referred By Contac t Referred To Contact Endocrinology Diagnoses Diabetes mellitus due to underlying condition, uncontrolled, with hyperglycemia (HCC) H/O medication noncompliance Procedures CONSULT TO ENDOCRINOLOGY OFFICE/OUTPATIENT [facility] MDM 60-74 MINUTES Belgica Vega DO [address] [place] [id number] Referral ID Status Reason Start Date Expiration Date Visits Requested Visits Authorized [id number] Pending Review PCP Requested Referral 11/04/2022 11/04/2023 1 1 Specialty Diagnoses / Procedures Referred By Contac t Referred To Contact Pain Management Diagnoses Chronic pain syndrome Cancer associated pain Chronic bilateral low back pain with left-sided sciatica Spinal stenosis of lumbar region with neurogenic claudication Lumbar radiculopathy Procedures CONSULT TO PAIN MGT Belgica Vega DO [address] [place] [address] Referral ID Status Reason Start Date Expiration Date Visits Requested Visits Authorized [id number] Ref Not Required PCP Requested Referral 12/23/2022 12/23/2023 1 1 History of Present Illness * Belgica Herrera - 02/14/2020 4:48 PM EST Belgica Herrera DO [address] [place] [address] Visit Date: February 14, 2020 Mr.Jim Najma Ashton Date of : 1960 MRN/E #: [id number] History of Present Illness José Manuel Ashton is a 59 year old male. Patient presents to the clinic today for new patient visit HPI Patient is new to me. Patient is here for physical exam. Pt is from [place]. Patient desires handicap placard on the basis [...] Hasnt had PT for back except in s. Uses hot water bottle. Deniesdysuria, penile discharge [...] 98.1 (Left Tympanic) Resp 18 Ht 5' 9.488 (1.77m) Wt 266 lb12.8 oz (121.0kg) SpO2 [...] ICD10: E11.9 The patient is new to [place]. - Check HgA1C and fasting lipid panel [...] reduce stress. - CONSULT BEHAVIORAL HEALTH Belgica Herrera DO Return for Hypertension, Visit for re-check, Diabetes. If symptoms persist, worsen, or no improvement, patient is to call 911 and/or go to the nearest ED. documented in this encounter* Randall Salazar (Rt)Anne Marie - 02/17/2020 1:15 PM EST Radiology [...] 02/20/2020 3:30 PM EST Belgica Herrera DO [address] [place] [address] Visit Date: February 20, 2020 Mr.Jim Najma Ashton Date of : 1960 MRN/E #: [id number] History of Present Illness José Manuel Ashton [...] want to check BS. Pt [facility] ran out of Spaces 2 Host met. Was told they would call once get in.was suppose to be in yesterday but they never called. Pt states he will check with them. Pt indicates wants to avoid shots, dislikes needles. Pt recalls aic being 8-9 when on acto plus [employer], it wasn't 13. Vitamin D level was 18.8.. LDL was 136. Patient's alkaline phosphatase was 117.Is eating more dairylately, yoghurt lately and more salads. Patient also has history of chronic low back pain. ET consult was ordered during last office visit.Patient was also referred to orthopedics. Handicap chase prescription was written. 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 Has hx of of bad [...] 98.2 (Left Tympanic) Resp 18 Ht 5' 10.276 (1.79m) Wt 264 lb 9.6 oz (120.0kg) [...] 02/17/2020 1.62 1.00 - 4.00 k/uL Final Dyer% 02/17/2020 9.2 % Final Abs Dyer 02/17/2020 0.73 <0.87 k/uL Final Eosin% 02/17/2020 [...] 322* 74 - 99 mg/dL Final The [place] Diabetes Association (ADA) provides guidance for cutoff [...] Standards of Medical Care in Diabetes 2016, [place] Diabetes Association. Diabetes Care. 2016.39(Suppl 1). BUN [...] Desk Reference: National Heart, Lung, and Blood [place]. National Institutes of Health. 2001: NIH Publication No. 01-3305. 2. An International Atherosclerosis Society position paper: global recommendations for the management of dyslipidemia: executive summary, Atherosclerosis. 2014: 232(2):410-413. PSA 02/17/2020 0.75 0.00 - 3.90 ng/mL Final Total PSA test methodology used is the Direct Chemiluminometric technology. TSH 02/17/2020 1.160 0.270 - 4.200 uU/mL Final Hemoglobin A1C 02/17/2020 13.2* 4.3 - 5.6 % Final [place] Diabetes Association guidelines indicate that patients with HgbA1c in the range 5.7-6.4% are at increased risk for development of diabetes, and intervention by lifestyle modification may be beneficial. HgbA1c greater or equal to 6.5% is considered diagnostic of diabetes. Estimated Average Glucose 02/17/2020 332 mg/dL Final eAG: (Estimated average glucose) is a calculated value from HgbA1c and is hospital sales representative of the average blood glucose level [...] 12 Combo (Ag/Ab) 02/17/2020 Nonreactive Nonreactive Final [place] Rev. Code 3701.243(E): This information has been [...] 3:52 PM EST Belgica Herrera DO [address] [place] [address] Visit Date: March 23, 2020 Mr.Jim Najma Ashton Date of : 1960 MRN/E #: [id number] History of Present Illness José Manuel Ashton [...] visit that madhu Diaz ran out of ACTOplus met. Was told that they would call once theygot it again but they never called him. Patient had recalled A1c being 8-9 one on Actos plus met.Drug mal got med. States [facility] didn't want to [...] 98 (Left Tympanic) Resp 18 Ht 5' 10.276 (1.79m) Wt 271 lb 12.8 oz (123.3kg) [...] 02/17/2020 1.62 1.00 - 4.00 k/uL Final Dyer% 02/17/2020 9.2 % Final Abs Dyer 02/17/2020 0.73 <0.87 k/uL Final Eosin% 02/17/2020 [...] 322* 74 - 99 mg/dL Final The [place] Diabetes Association (ADA) provides guidance for cutoff [...] Standards of Medical Care in Diabetes 2016, [place] Diabetes Association. Diabetes Care. 2016.39(Suppl 1). BUN [...] Desk Reference: National Heart, Lung, and Blood [place]. National Institutes of Health. 2001: NIH Publication No. 01-3305. 2. An International Atherosclerosis Society position paper: global recommendations for the management of dyslipidemia: executive summary, Atherosclerosis. 2014: 232(2):410-413. PSA 02/17/2020 0.75 0.00 - 3.90 ng/mL Final Total PSA test methodology used is the Direct Chemiluminometric technology. TSH 02/17/2020 1.160 0.270 - 4.200 uU/mL Final Hemoglobin A1C 02/17/2020 13.2* 4.3 - 5.6 % Final [place] Diabetes Association guidelines indicate that patients with HgbA1c in the range 5.7-6.4% are at increased risk for development of diabetes, and intervention by lifestyle modification may be beneficial. HgbA1c greater or equal to 6.5% is considered diagnostic of diabetes. Estimated Average Glucose 02/17/2020 332 mg/dL Final eAG: (Estimated average glucose) is a calculated value from HgbA1c and is hospital sales representative of the average blood glucose level [...] 12 Combo (Ag/Ab) 02/17/2020 Nonreactive Nonreactive Final [place] Rev. Code 3701.243(E): This information has been [...] 04/27/2020 3:51 PM EST Belgica Herrera DO [address] [place] [address] Visit Date: April 27, 2020 Mr.Jim Najma Ashton Date of : 1960 MRN/E #: [id number] History of Present Illness José Manuel Ashton [...] 98.6 (Right Tympanic) Resp 18 Ht 5' 10.276 (1.79m) Wt 271 lb 6.4 oz (123.1kg) [...] 02/17/2020 1.62 1.00 - 4.00 k/uL Final Dyer% 02/17/2020 9.2 % Final Abs Dyer 02/17/2020 0.73 <0.87 k/uL Final Eosin% 02/17/2020 [...] 322* 74 - 99 mg/dL Final The [place] Diabetes Association (ADA) provides guidance for cutoff [...] Standards of Medical Care in Diabetes 2016, [place] Diabetes Association. Diabetes Care. 2016.39(Suppl 1). BUN [...] Desk Reference: National Heart, Lung, and Blood [place]. National Institutes of Health. 2001: NIH Publication No. 01-3305. 2. An International Atherosclerosis Society position paper: global recommendations for the management of dyslipidemia: executive summary, Atherosclerosis. 2014: 232(2):410-413. PSA 02/17/2020 0.75 0.00 - 3.90 ng/mL Final Total PSA test methodology used is the Direct Chemiluminometric technology. TSH 02/17/2020 1.160 0.270 - 4.200 uU/mL Final Hemoglobin A1C 02/17/2020 13.2* 4.3 - 5.6 % Final [place] Diabetes Association guidelines indicate that patients with HgbA1c in the range 5.7-6.4% are at increased risk for development of diabetes, and intervention by lifestyle modification may be beneficial. HgbA1c greater or equal to 6.5% is considered diagnostic of diabetes. Estimated Average Glucose 02/17/2020 332 mg/dL Final eAG: (Estimated average glucose) is a calculated value from HgbA1c and is hospital sales representative of the average blood glucose level [...] 12 Combo (Ag/Ab) 02/17/2020 Nonreactive Nonreactive Final [place] Rev. Code 3701.243(E): This information has been [...] of Care: created on 05/05/20 through 06/16/20 [place] in home exercise program. Patient will follow [...] Planned: 12(TBD) Planned Treatment Interventions: Therapeutic exercise (70914);Neuromuscular re- education (34557);Manual therapy (67541);Therapeutic activities (23546);Self- shelter management (14276);Gait Training (22756);Body Mechanics Training;E- Stim Unattended (30544);Ultrasound (16695) PLAN FOR NEXT VISIT: Hold outpatient PT at this time, patient to follow up with physician [facility]. Patient demonstrates good understanding of plan of care and treatment. The above goals and plan of care were discussed and agreed upon by patient/family. SUBJECTIVE: José Manuel Ashton is a 59 year old male seen today for chronic low back pain. He states in the 1990s he herniated 4 lumbar discs. Recently within [...] Evaluation Billing: Jude: Evaluation - Moderate Complexity (12071) Therapeutic Exercise (35691): 1:1 time: 10 minutes (1 unit: 8-22 mins) Total time / Length of visit: 60 minutes Carla Tripathi, PT documented in this encounter* Jayesh Barajas (Rt), Anne Marie - 05/14/2020 2:00 PM EST Radiology [...] PM documented in this encounter* Juancho Benedict (Criss) - 05/28/2020 12:52 PM EST [facility] CRISS Lee [address] [facility] 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 The patient stated [...] means of interacting with others as it wigs meout. Symptoms: Please see the PHQ-9 and BRANDAN-7 [...] Personal History: The patient was born in [place], [place]. He was the youngest of 17 children born to his mother and father. Most of his siblings were in the home when he was born. He feels that his childhood was awesome. His mother worked as a homemaker. His father was a diesel crane operator. He recalled both of his parents working all day long. Many of his siblings have . The patient went to high school in [place], [place]. He was not a good student. He never graduated. 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 One of his brothersmoved to [place] and he moved with him in 1983 at the age of 23. 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 When his brother got he moved into a [employer] where everybody had their own room. His brother still resides in [place] but he felt that there were other family members that he would like to be close to and moved back to [place] last December. Support Systems: At the present [...] Thought: Normal. Abstract Thinking: Normal. Thought Content: Perrin. Cognition - Immediate Recall : Intact Remote [...] To be totally honest with myself and CRISS Lee I will keep my appointments. I will develop a positive relationship with CRISS Lee LISW-S documented in this encounter* Belgica Herrera - 05/28/2020 4:07 PM EST Belgica Herrera DO [address] [place] [address] Visit Date: May 28, 2020 Mr.Jim Najma Ashton Date of : 1960 MRN/E #: [id number] History of Present Illness José Manuel Ashton [...] depression. Temp 97.6 Resp 16 Ht 5' 10 (1.78m) Wt 269 lb 11.2 oz (122.3kg) [...] Ketones, Urine 05/14/2020 Trace* Negative Final Specific Cyril, Ur 05/14/2020 1.042* 1.005 - 1.030 Final [...] 05/14/2020 10.5* 4.3 - 5.6 % Final [place] Diabetes Association guidelines indicate that patients with HgbA1c in the range 5.7-6.4% are at increased risk for development of diabetes, and intervention by lifestyle modification may be beneficial. HgbA1c greater or equal to 6.5% is considered diagnostic of diabetes. Estimated Average Glucose 05/14/2020 255 mg/dL Final eAG: (Estimated average glucose) is a calculated value from HgbA1c and is hospital sales representative of the average blood glucose level [...] Desk Reference: National Heart, Lung, and Blood [place]. National Institutes of Health. 2001: NIH Publication [...] regular aerobic exercise and weight loss. Belgica Herrera, DO Return in about 1 [...] Documents on File Type Date Recorded Patient Senior Center Manager Expl anation Advance Directive(s) 04/13/2021 1:40 AM Advance Directive(s) 04/12/2021 2:50 PM Advance Directive(s) 02/19/2021 5:11 PM Advance Directive(s) 01/08/2021 6:55 PM Advance Directive(s) 11/24/2020 6:01 AM Advance Directive(s) 09/21/2020 10:29 AM Advance Directive(s) 07/24/2020 7:09 AM Documents on File Type Date Recorded Patient Senior Center Manager Expl anation Advance Directive(s) 04/13/2021 1:40 AM Advance Directive(s) 04/12/2021 2:50 PM Advance Directive(s) 02/19/2021 5:11 PM Advance Directive(s) 01/08/2021 6:55 PM Advance Directive(s) 11/24/2020 6:01 AM Advance Directive(s) 09/21/2020 10:29 AM Advance Directive(s) 07/24/2020 7:09 AM Documents on File Type Date Recorded Patient Senior Center Manager Expl anation Advance Directive(s) 09/02/2021 8:46 PM Advance Directive(s) 04/13/2021 1:40 AM Advance Directive(s) 04/12/2021 2:50 PM Advance Directive(s) 02/19/2021 5:11 PM Advance Directive(s) 01/08/2021 6:55 PM Advance Directive(s) 11/24/2020 6:01 AM Advance Directive(s) 09/21/2020 10:29 AM Advance Directive(s) 07/24/2020 7:09 AM Documents on File Type Date Recorded Patient Senior Center Manager Expl anation Advance Directive(s) 09/06/2021 9:37 PM Advance Directive(s) 09/02/2021 8:46 PM Advance Directive(s) 04/13/2021 1:40 AM Advance Directive(s) 04/12/2021 2:50 PM Advance Directive(s) 02/19/2021 5:11 PM Advance Directive(s) 01/08/2021 6:55 PM Advance Directive(s) 11/24/2020 6:01 AM Advance Directive(s) 09/21/2020 10:29 AM Advance Directive(s) 07/24/2020 7:09 AM Documents on File Type Date Recorded Patient Senior Center Manager Expl anation Advance Directive(s) 09/06/2021 9:37 PM [...] the event of a Fluress shortage, administer [place]-Fluor 1 drop into both eyes as directed [...] 1 Drop, BOTH EYES, DIRECTED, Starting on 09/16/22 at 1400, Until 09/17/22 at 0159, Administer [...] or prosecute any alcohol or drug abuse patient.[facility] Center[facility] the event this information is protected by the Federal Confidentiality of Alcohol and Drug Abuse Patient Records regulations: The Federal rules restrict any use of the information to criminally investigate or prosecute any alcohol or drug abuse patient.[facility] CenterIn the event this information is protected by the Federal Confidentiality of Alcohol and Drug Abuse Patient Records regulations: The Federal rules restrict any use of the information to criminally investigate or prosecute any alcohol or drug abuse patient.[facility] CenterIn the event this information is protected by the Federal Confidentiality of Alcohol and Drug Abuse Patient Records regulations: The Federal rules restrict any use of the information to criminally investigate or prosecute any alcohol or drug abuse patient.[facility] CenterIn the event this information is protected by the Federal Confidentiality of Alcohol and Drug Abuse Patient Records regulations: The Federal rules restrict any use of the information to criminally investigate or prosecute any alcohol or drug abuse patient.[facility] CenterIn the event this information is protected by the Federal Confidentiality of Alcohol and Drug Abuse Patient Records regulations: The Federal rules restrict any use of the information to criminally investigate or prosecute any alcohol or drug abuse patient.[facility] CenterIn the event this information is protected by the Federal Confidentiality of Alcohol and Drug Abuse Patient Records regulations: The Federal rules restrict any use of the information to criminally investigate or prosecute any alcohol or drug abuse patient.[facility] CenterIn the event this information is protected by the Federal Confidentiality of Alcohol and Drug Abuse Patient Records regulations: The Federal rules restrict any use of the information to criminally investigate or prosecute any alcohol or drug abuse patient.[facility] CenterIn the event this information is protected by the Federal Confidentiality of Alcohol and Drug Abuse Patient Records regulations: The Federal rules restrict any use of the information to criminally investigate or prosecute any alcohol or drug abuse patient.[facility] CenterIn the event this information is protected by the Federal Confidentiality of Alcohol and Drug Abuse Patient Records regulations: The Federal rules restrict any use of the information to criminally investigate or prosecute any alcohol or drug abuse patient.[facility] CenterIn the event this information is protected by the Federal Confidentiality of Alcohol and Drug Abuse Patient Records regulations: The Federal rules restrict any use of the information to criminally investigate or prosecute any alcohol or drug abuse patient.[facility] the event this information is protected by the Federal Confidentiality of Alcohol and Drug Abuse Patient Records regulations: The Federal rules restrict any use of the information to criminally investigate or prosecute any alcohol or drug abuse patient.[facility] CenterIn the event this information is protected by the Federal Confidentiality of Alcohol and Drug Abuse Patient Records regulations: The Federal rules restrict any use of the information to criminally investigate or prosecute any alcohol or drug abuse patient.[facility] CenterIn the event this information is protected by the Federal Confidentiality of Alcohol and Drug Abuse Patient Records regulations: The Federal rules restrict any use of the information to criminally investigate or prosecute any alcohol or drug abuse patient.[facility] CenterIn the event this information is protected by the Federal Confidentiality of Alcohol and Drug Abuse Patient Records regulations: The Federal rules restrict any use of the information to criminally investigate or prosecute any alcohol or drug abuse patient.[facility] CenterIn the event this information is protected by the Federal Confidentiality of Alcohol and Drug Abuse Patient Records regulations: The Federal rules restrict any use of the information to criminally investigate or prosecute any alcohol or drug abuse patient.[facility] CenterIn the event this information is protected by the Federal Confidentiality of Alcohol and Drug Abuse Patient Records regulations: The Federal rules restrict any use of the information to criminally investigate or prosecute any alcohol or drug abuse patient.[facility] CenterIn the event this information is protected by the Federal Confidentiality of Alcohol and Drug Abuse Patient Records regulations: The Federal rules restrict any use of the information to criminally investigate or prosecute any alcohol or drug abuse patient.[facility] CenterIn the event this information is protected by the Federal Confidentiality of Alcohol and Drug Abuse Patient Records regulations: The Federal rules restrict any use of the information to criminally investigate or prosecute any alcohol or drug abuse patient.[facility] CenterIn the event this information is protected by the Federal Confidentiality of Alcohol and Drug Abuse Patient Records regulations: The Federal rules restrict any use of the information to criminally investigate or prosecute any alcohol or drug abuse patient.[facility] CenterIn the event this information is protected by the Federal Confidentiality of Alcohol and Drug Abuse Patient Records regulations: The Federal rules restrict any use of the information to criminally investigate or prosecute any alcohol or drug abuse patient.[facility] CenterIn the event this information is protected by the Federal Confidentiality of Alcohol and Drug Abuse Patient Records regulations: The Federal rules restrict any use of the information to criminally investigate or prosecute any alcohol or drug abuse patient.[facility] CenterIn the event this information is protected by the Federal Confidentiality of Alcohol and Drug Abuse Patient Records regulations: The Federal rules restrict any use of the information to criminally investigate or prosecute any alcohol or drug abuse patient.[facility] CenterIn the event this information is protected by the Federal Confidentiality of Alcohol and Drug Abuse Patient Records regulations: The Federal rules restrict any use of the information to criminally investigate or prosecute any alcohol or drug abuse patient.[facility] CenterIn the event this information is protected by the Federal Confidentiality of Alcohol and Drug Abuse Patient Records regulations: The Federal rules restrict any use of the information to criminally investigate or prosecute any alcohol or drug abuse patient.[facility] CenterIn the event this information is protected by the Federal Confidentiality of Alcohol and Drug Abuse Patient Records regulations: The Federal rules restrict any use of the information to criminally investigate or prosecute any alcohol or drug abuse patient.[facility] CenterIn the event this information is protected by the Federal Confidentiality of Alcohol and Drug Abuse Patient Records regulations: The Federal rules restrict any use of the information to criminally investigate or prosecute any alcohol or drug abuse patient.[facility] CenterIn the event this information is protected by the Federal Confidentiality of Alcohol and Drug Abuse Patient Records regulations: The Federal rules restrict any use of the information to criminally investigate or prosecute any alcohol or drug abuse patient.[facility] CenterIn the event this information is protected by the Federal Confidentiality of Alcohol and Drug Abuse Patient Records regulations: The Federal rules restrict any use of the information to criminally investigate or prosecute any alcohol or drug abuse patient.[facility] CenterIn the event this information is protected by the Federal Confidentiality of Alcohol and Drug Abuse Patient Records regulations: The Federal rules restrict any use of the information to criminally investigate or prosecute any alcohol or drug abuse patient.[facility] CenterIn the event this information is protected by the Federal Confidentiality of Alcohol and Drug Abuse Patient Records regulations: The Federal rules restrict any use of the information to criminally investigate or prosecute any alcohol or drug abuse patient.[facility] CenterIn the event this information is protected by the Federal Confidentiality of Alcohol and Drug Abuse Patient Records regulations: The Federal rules restrict any use of the information to criminally investigate or prosecute any alcohol or drug abuse patient.[facility] CenterIn the event this information is protected by the Federal Confidentiality of Alcohol and Drug Abuse Patient Records regulations: The Federal rules restrict any use of the information to criminally investigate or prosecute any alcohol or drug abuse patient.[facility] CenterIn the event this information is protected by the Federal Confidentiality of Alcohol and Drug Abuse Patient Records regulations: The Federal rules restrict any use of the information to criminally investigate or prosecute any alcohol or drug abuse patient.[facility] CenterIn the event this information is protected by the Federal Confidentiality of Alcohol and Drug Abuse Patient Records regulations: The Federal rules restrict any use of the information to criminally investigate or prosecute any alcohol or drug abuse patient.[facility] CenterIn the event this information is protected by the Federal Confidentiality of Alcohol and Drug Abuse Patient Records regulations: The Federal rules restrict any use of the information to criminally investigate or prosecute any alcohol or drug abuse patient.[facility] CenterIn the event this information is protected by the Federal Confidentiality of Alcohol and Drug Abuse Patient Records regulations: The Federal rules restrict any use of the information to criminally investigate or prosecute any alcohol or drug abuse patient.[facility] CenterIn the event this information is protected by the Federal Confidentiality of Alcohol and Drug Abuse Patient Records regulations: The Federal rules restrict any use of the information to criminally investigate or prosecute any alcohol or drug abuse patient.[facility] CenterIn the event this information is protected by the Federal Confidentiality of Alcohol and Drug Abuse Patient Records regulations: The Federal rules restrict any use of the information to criminally investigate or prosecute any alcohol or drug abuse patient.[facility] CenterIn the event this information is protected by the Federal Confidentiality of Alcohol and Drug Abuse Patient Records regulations: The Federal rules restrict any use of the information to criminally investigate or prosecute any alcohol or drug abuse patient.[facility] CenterIn the event this information is protected by the Federal Confidentiality of Alcohol and Drug Abuse Patient Records regulations: The Federal rules restrict any use of the information to criminally investigate or prosecute any alcohol or drug abuse patient.[facility] CenterIn the event this information is protected by the Federal Confidentiality of Alcohol and Drug Abuse Patient Records regulations: The Federal rules restrict any use of the information to criminally investigate or prosecute any alcohol or drug abuse patient.[facility] CenterIn the event this information is protected by the Federal Confidentiality of Alcohol and Drug Abuse Patient Records regulations: The Federal rules restrict any use of the information to criminally investigate or prosecute any alcohol or drug abuse patient.[facility] CenterIn the event this information is protected by the Federal Confidentiality of Alcohol and Drug Abuse Patient Records regulations: The Federal rules restrict any use of the information to criminally investigate or prosecute any alcohol or drug abuse patient.[facility] CenterIn the event this information is protected by the Federal Confidentiality of Alcohol and Drug Abuse Patient Records regulations: The Federal rules restrict any use of the information to criminally investigate or prosecute any alcohol or drug abuse patient.[facility] CenterIn the event this information is protected by the Federal Confidentiality of Alcohol and Drug Abuse Patient Records regulations: The Federal rules restrict any use of the information to criminally investigate or prosecute any alcohol or drug abuse patient.[facility] CenterIn the event this information is protected by the Federal Confidentiality of Alcohol and Drug Abuse Patient Records regulations: The Federal rules restrict any use of the information to criminally investigate or prosecute any alcohol or drug abuse patient.[facility] CenterIn the event this information is protected by the Federal Confidentiality of Alcohol and Drug Abuse Patient Records regulations: The Federal rules restrict any use of the information to criminally investigate or prosecute any alcohol or drug abuse patient.[facility] CenterIn the event this information is protected by the Federal Confidentiality of Alcohol and Drug Abuse Patient Records regulations: The Federal rules restrict any use of the information to criminally investigate or prosecute any alcohol or drug abuse patient.[facility] CenterIn the event this information is protected by the Federal Confidentiality of Alcohol and Drug Abuse Patient Records regulations: The Federal rules restrict any use of the information to criminally investigate or prosecute any alcohol or drug abuse patient.[facility] CenterIn the event this information is protected by the Federal Confidentiality of Alcohol and Drug Abuse Patient Records regulations: The Federal rules restrict any use of the information to criminally investigate or prosecute any alcohol or drug abuse patient.[facility] CenterIn the event this information is protected by the Federal Confidentiality of Alcohol and Drug Abuse Patient Records regulations: The Federal rules restrict any use of the information to criminally investigate or prosecute any alcohol or drug abuse patient.[facility] CenterIn the event this information is protected by the Federal Confidentiality of Alcohol and Drug Abuse Patient Records regulations: The Federal rules restrict any use of the information to criminally investigate or prosecute any alcohol or drug abuse patient.[facility] CenterIn the event this information is protected by the Federal Confidentiality of Alcohol and Drug Abuse Patient Records regulations: The Federal rules restrict any use of the information to criminally investigate or prosecute any alcohol or drug abuse patient.[facility] CenterIn the event this information is protected by the Federal Confidentiality of Alcohol and Drug Abuse Patient Records regulations: The Federal rules restrict any use of the information to criminally investigate or prosecute any alcohol or drug abuse patient.[facility] CenterIn the event this information is protected by the Federal Confidentiality of Alcohol and Drug Abuse Patient Records regulations: The Federal rules restrict any use of the information to criminally investigate or prosecute any alcohol or drug abuse patient.[facility] CenterIn the event this information is protected by the Federal Confidentiality of Alcohol and Drug Abuse Patient Records regulations: The Federal rules restrict any use of the information to criminally investigate or prosecute any alcohol or drug abuse patient.[facility] CenterIn the event this information is protected by the Federal Confidentiality of Alcohol and Drug Abuse Patient Records regulations: The Federal rules restrict any use of the information to criminally investigate or prosecute any alcohol or drug abuse patient.[facility] CenterIn the event this information is protected by the Federal Confidentiality of Alcohol and Drug Abuse Patient Records regulations: The Federal rules restrict any use of the information to criminally investigate or prosecute any alcohol or drug abuse patient.[facility] CenterIn the event this information is protected by the Federal Confidentiality of Alcohol and Drug Abuse Patient Records regulations: The Federal rules restrict any use of the information to criminally investigate or prosecute any alcohol or drug abuse patient.[facility] CenterIn the event this information is protected by the Federal Confidentiality of Alcohol and Drug Abuse Patient Records regulations: The Federal rules restrict any use of the information to criminally investigate or prosecute any alcohol or drug abuse patient.[facility]In the event this information is protected by the Federal Confidentiality of Alcohol and Drug Abuse Patient Records regulations: The Federal rules restrict any use of the information to criminally investigate or prosecute any alcohol or drug abuse patient.[facility] CenterIn the event this information is protected by the Federal Confidentiality of Alcohol and Drug Abuse Patient Records regulations: The Federal rules restrict any use of the information to criminally investigate or prosecute any alcohol or drug abuse patient.[facility] CenterIn the event this information is protected by the Federal Confidentiality of Alcohol and Drug Abuse Patient Records regulations: The Federal rules restrict any use of the information to criminally investigate or prosecute any alcohol or drug abuse patient.[facility] CenterIn the event this information is protected by the Federal Confidentiality of Alcohol and Drug Abuse Patient Records regulations: The Federal rules restrict any use of the information to criminally investigate or prosecute any alcohol or drug abuse patient.[facility] CenterIn the event this information is protected by the Federal Confidentiality of Alcohol and Drug Abuse Patient Records regulations: The Federal rules restrict any use of the information to criminally investigate or prosecute any alcohol or drug abuse patient.[facility] CenterIn the event this information is protected by the Federal Confidentiality of Alcohol and Drug Abuse Patient Records regulations: The Federal rules restrict any use of the information to criminally investigate or prosecute any alcohol or drug abuse patient.[facility] CenterIn the event this information is protected by the Federal Confidentiality of Alcohol and Drug Abuse Patient Records regulations: The Federal rules restrict any use of the information to criminally investigate or prosecute any alcohol or drug abuse patient.[facility]In the event this information is protected by the Federal Confidentiality of Alcohol and Drug Abuse Patient Records regulations: The Federal rules restrict any use of the information to criminally investigate or prosecute any alcohol or drug abuse patient.[facility]In the event this information is protected by the Federal Confidentiality of Alcohol and Drug Abuse Patient Records regulations: The Federal rules restrict any use of the information to criminally investigate or prosecute any alcohol or drug abuse patient.[facility]In the event this information is protected by the Federal Confidentiality of Alcohol and Drug Abuse Patient Records regulations: The Federal rules restrict any use of the information to criminally investigate or prosecute any alcohol or drug abuse patient.[facility]In the event this information is protected by the Federal Confidentiality of Alcohol and Drug Abuse Patient Records regulations: The Federal rules restrict any use of the information to criminally investigate or prosecute any alcohol or drug abuse patient.[facility]In the event this information is protected by the Federal Confidentiality of Alcohol and Drug Abuse Patient Records regulations: The Federal rules restrict any use of the information to criminally investigate or prosecute any alcohol or drug abuse patient.[facility]In the event this information is protected by the Federal Confidentiality of Alcohol and Drug Abuse Patient Records regulations: The Federal rules restrict any use of the information to criminally investigate or prosecute any alcohol or drug abuse patient.[facility]In the event this information is protected by the Federal Confidentiality of Alcohol and Drug Abuse Patient Records regulations: The Federal rules restrict any use of the information to criminally investigate or prosecute any alcohol or drug abuse patient.[facility]In the event this information is protected by the Federal Confidentiality of Alcohol and Drug Abuse Patient Records regulations: The Federal rules restrict any use of the information to criminally investigate or prosecute any alcohol or drug abuse patient.[facility]In the event this information is protected by the Federal Confidentiality of Alcohol and Drug Abuse Patient Records regulations: The Federal rules restrict any use of the information to criminally investigate or prosecute any alcohol or drug abuse patient.[facility]In the event this information is protected by the Federal Confidentiality of Alcohol and Drug Abuse Patient Records regulations: The Federal rules restrict any use of the information to criminally investigate or prosecute any alcohol or drug abuse patient.[facility] CenterIn the event this information is protected by the Federal Confidentiality of Alcohol and Drug Abuse Patient Records regulations: The Federal rules restrict any use of the information to criminally investigate or prosecute any alcohol or drug abuse patient.[facility]In the event this information is protected by the Federal Confidentiality of Alcohol and Drug Abuse Patient Records regulations: The Federal rules restrict any use of the information to criminally investigate or prosecute any alcohol or drug abuse patient.[facility] CenterIn the event this information is protected by the Federal Confidentiality of Alcohol and Drug Abuse Patient Records regulations: The Federal rules restrict any use of the information to criminally investigate or prosecute any alcohol or drug abuse patient.[facility] CenterIn the event this information is protected by the Federal Confidentiality of Alcohol and Drug Abuse Patient Records regulations: The Federal rules restrict any use of the information to criminally investigate or prosecute any alcohol or drug abuse patient.[facility]In the event this information is protected by the Federal Confidentiality of Alcohol and Drug Abuse Patient Records regulations: The Federal rules restrict any use of the information to criminally investigate or prosecute any alcohol or drug abuse patient.[facility]In the event this information is protected by the Federal Confidentiality of Alcohol and Drug Abuse Patient Records regulations: The Federal rules restrict any use of the information to criminally investigate or prosecute any alcohol or drug abuse patient.[facility]In the event this information is protected by the Federal Confidentiality of Alcohol and Drug Abuse Patient Records regulations: The Federal rules restrict any use of the information to criminally investigate or prosecute any alcohol or drug abuse patient.[facility]In the event this information is protected by the Federal Confidentiality of Alcohol and Drug Abuse Patient Records regulations: The Federal rules restrict any use of the information to criminally investigate or prosecute any alcohol or drug abuse patient.[facility]In the event this information is protected by the Federal Confidentiality of Alcohol and Drug Abuse Patient Records regulations: The Federal rules restrict any use of the information to criminally investigate or prosecute any alcohol or drug abuse patient.[facility]In the event this information is protected by the Federal Confidentiality of Alcohol and Drug Abuse Patient Records regulations: The Federal rules restrict any use of the information to criminally investigate or prosecute any alcohol or drug abuse patient.[facility]In the event this information is protected by the Federal Confidentiality of Alcohol and Drug Abuse Patient Records regulations: The Federal rules restrict any use of the information to criminally investigate or prosecute any alcohol or drug abuse patient.[facility]In the event this information is protected by the Federal Confidentiality of Alcohol and Drug Abuse Patient Records regulations: The Federal rules restrict any use of the information to criminally investigate or prosecute any alcohol or drug abuse patient.[facility]In the event this information is protected by the Federal Confidentiality of Alcohol and Drug Abuse Patient Records regulations: The Federal rules restrict any use of the information to criminally investigate or prosecute any alcohol or drug abuse patient.[facility]In the event this information is protected by the Federal Confidentiality of Alcohol and Drug Abuse Patient Records regulations: The Federal rules restrict any use of the information to criminally investigate or prosecute any alcohol or drug abuse patient.[facility]In the event this information is protected by the Federal Confidentiality of Alcohol and Drug Abuse Patient Records regulations: The Federal rules restrict any use of the information to criminally investigate or prosecute any alcohol or drug abuse patient.[facility]In the event this information is protected by the Federal Confidentiality of Alcohol and Drug Abuse Patient Records regulations: The Federal rules restrict any use of the information to criminally investigate or prosecute any alcohol or drug abuse patient.[facility]In the event this information is protected by the Federal Confidentiality of Alcohol and Drug Abuse Patient Records regulations: The Federal rules restrict any use of the information to criminally investigate or prosecute any alcohol or drug abuse patient.[facility]In the event this information is protected by the Federal Confidentiality of Alcohol and Drug Abuse Patient Records regulations: The Federal rules restrict any use of the information to criminally investigate or prosecute any alcohol or drug abuse patient.[facility]In the event this information is protected by the Federal Confidentiality of Alcohol and Drug Abuse Patient Records regulations: The Federal rules restrict any use of the information to criminally investigate or prosecute any alcohol or drug abuse patient.[facility]In the event this information is protected by the Federal Confidentiality of Alcohol and Drug Abuse Patient Records regulations: The Federal rules restrict any use of the information to criminally investigate or prosecute any alcohol or drug abuse patient.[facility]In the event this information is protected by the Federal Confidentiality of Alcohol and Drug Abuse Patient Records regulations: The Federal rules restrict any use of the information to criminally investigate or prosecute any alcohol or drug abuse patient.[facility]In the event this information is protected by the Federal Confidentiality of Alcohol and Drug Abuse Patient Records regulations: The Federal rules restrict any use of the information to criminally investigate or prosecute any alcohol or drug abuse patient.[facility]In the event this information is protected by the Federal Confidentiality of Alcohol and Drug Abuse Patient Records regulations: The Federal rules restrict any use of the information to criminally investigate or prosecute any alcohol or drug abuse patient.[facility]In the event this information is protected by the Federal Confidentiality of Alcohol and Drug Abuse Patient Records regulations: The Federal rules restrict any use of the information to criminally investigate or prosecute any alcohol or drug abuse patient.[facility]In the event this information is protected by the Federal Confidentiality of Alcohol and Drug Abuse Patient Records regulations: The Federal rules restrict any use of the information to criminally investigate or prosecute any alcohol or drug abuse patient.[facility]In the event this information is protected by the Federal Confidentiality of Alcohol and Drug Abuse Patient Records regulations: The Federal rules restrict any use of the information to criminally investigate or prosecute any alcohol or drug abuse patient.[facility]In the event this information is protected by the Federal Confidentiality of Alcohol and Drug Abuse Patient Records regulations: The Federal rules restrict any use of the information to criminally investigate or prosecute any alcohol or drug abuse patient.[facility]In the event this information is protected by the Federal Confidentiality of Alcohol and Drug Abuse Patient Records regulations: The Federal rules restrict any use of the information to criminally investigate or prosecute any alcohol or drug abuse patient.[facility]In the event this information is protected by the Federal Confidentiality of Alcohol and Drug Abuse Patient Records regulations: The Federal rules restrict any use of the information to criminally investigate or prosecute any alcohol or drug abuse patient.[facility]In the event this information is protected by the Federal Confidentiality of Alcohol and Drug Abuse Patient Records regulations: The Federal rules restrict any use of the information to criminally investigate or prosecute any alcohol or drug abuse patient.[facility]In the event this information is protected by the Federal Confidentiality of Alcohol and Drug Abuse Patient Records regulations: The Federal rules restrict any use of the information to criminally investigate or prosecute any alcohol or drug abuse patient.[facility]In the event this information is protected by the Federal Confidentiality of Alcohol and Drug Abuse Patient Records regulations: The Federal rules restrict any use of the information to criminally investigate or prosecute any alcohol or drug abuse patient.[facility]In the event this information is protected by the Federal Confidentiality of Alcohol and Drug Abuse Patient Records regulations: The Federal rules restrict any use of the information to criminally investigate or prosecute any alcohol or drug abuse patient.[facility]In the event this information is protected by the Federal Confidentiality of Alcohol and Drug Abuse Patient Records regulations: The Federal rules restrict any use of the information to criminally investigate or prosecute any alcohol or drug abuse patient.[facility]In the event this information is protected by the Federal Confidentiality of Alcohol and Drug Abuse Patient Records regulations: The Federal rules restrict any use of the information to criminally investigate or prosecute any alcohol or drug abuse patient.[facility]In the event this information is protected by the Federal Confidentiality of Alcohol and Drug Abuse Patient Records regulations: The Federal rules restrict any use of the information to criminally investigate or prosecute any alcohol or drug abuse patient.[facility]In the event this information is protected by the Federal Confidentiality of Alcohol and Drug Abuse Patient Records regulations: The Federal rules restrict any use of the information to criminally investigate or prosecute any alcohol or drug abuse patient.[facility]In the event this information is protected by the Federal Confidentiality of Alcohol and Drug Abuse Patient Records regulations: The Federal rules restrict any use of the information to criminally investigate or prosecute any alcohol or drug abuse patient.[facility] CenterIn the event this information is protected by the Federal Confidentiality of Alcohol and Drug Abuse Patient Records regulations: The Federal rules restrict any use of the information to criminally investigate or prosecute any alcohol or drug abuse patient.[facility] CenterIn the event this information is protected by the Federal Confidentiality of Alcohol and Drug Abuse Patient Records regulations: The Federal rules restrict any use of the information to criminally investigate or prosecute any alcohol or drug abuse patient.[facility] CenterIn the event this information is protected by the Federal Confidentiality of Alcohol and Drug Abuse Patient Records regulations: The Federal rules restrict any use of the information to criminally investigate or prosecute any alcohol or drug abuse patient.[facility] CenterIn the event this information is protected by the Federal Confidentiality of Alcohol and Drug Abuse Patient Records regulations: The Federal rules restrict any use of the information to criminally investigate or prosecute any alcohol or drug abuse patient.[facility] CenterIn the event this information is protected by the Federal Confidentiality of Alcohol and Drug Abuse Patient Records regulations: The Federal rules restrict any use of the information to criminally investigate or prosecute any alcohol or drug abuse patient.[facility] CenterIn the event this information is protected by the Federal Confidentiality of Alcohol and Drug Abuse Patient Records regulations: The Federal rules restrict any use of the information to criminally investigate or prosecute any alcohol or drug abuse patient.[facility] CenterIn the event this information is protected by the Federal Confidentiality of Alcohol and Drug Abuse Patient Records regulations: The Federal rules restrict any use of the information to criminally investigate or prosecute any alcohol or drug abuse patient.[facility] CenterIn the event this information is protected by the Federal Confidentiality of Alcohol and Drug Abuse Patient Records regulations: The Federal rules restrict any use of the information to criminally investigate or prosecute any alcohol or drug abuse patient.[facility] CenterIn the event this information is protected by the Federal Confidentiality of Alcohol and Drug Abuse Patient Records regulations: The Federal rules restrict any use of the information to criminally investigate or prosecute any alcohol or drug abuse patient.[facility] CenterIn the event this information is protected by the Federal Confidentiality of Alcohol and Drug Abuse Patient Records regulations: The Federal rules restrict any use of the information to criminally investigate or prosecute any alcohol or drug abuse patient.[facility] CenterIn the event this information is protected by the Federal Confidentiality of Alcohol and Drug Abuse Patient Records regulations: The Federal rules restrict any use of the information to criminally investigate or prosecute any alcohol or drug abuse patient.[facility] CenterIn the event this information is protected by the Federal Confidentiality of Alcohol and Drug Abuse Patient Records regulations: The Federal rules restrict any use of the information to criminally investigate or prosecute any alcohol or drug abuse patient.[facility] CenterIn the event this information is protected by the Federal Confidentiality of Alcohol and Drug Abuse Patient Records regulations: The Federal rules restrict any use of the information to criminally investigate or prosecute any alcohol or drug abuse patient.[facility] CenterIn the event this information is protected by the Federal Confidentiality of Alcohol and Drug Abuse Patient Records regulations: The Federal rules restrict any use of the information to criminally investigate or prosecute any alcohol or drug abuse patient.[facility] CenterIn the event this information is protected by the Federal Confidentiality of Alcohol and Drug Abuse Patient Records regulations: The Federal rules restrict any use of the information to criminally investigate or prosecute any alcohol or drug abuse patient.[facility] CenterIn the event this information is protected by the Federal Confidentiality of Alcohol and Drug Abuse Patient Records regulations: The Federal rules restrict any use of the information to criminally investigate or prosecute any alcohol or drug abuse patient.[facility] CenterIn the event this information is protected by the Federal Confidentiality of Alcohol and Drug Abuse Patient Records regulations: The Federal rules restrict any use of the information to criminally investigate or prosecute any alcohol or drug abuse patient.[facility] CenterIn the event this information is protected by the Federal Confidentiality of Alcohol and Drug Abuse Patient Records regulations: The Federal rules restrict any use of the information to criminally investigate or prosecute any alcohol or drug abuse patient.[facility] CenterIn the event this information is protected by the Federal Confidentiality of Alcohol and Drug Abuse Patient Records regulations: The Federal rules restrict any use of the information to criminally investigate or prosecute any alcohol or drug abuse patient.[facility] CenterIn the event this information is protected by the Federal Confidentiality of Alcohol and Drug Abuse Patient Records regulations: The Federal rules restrict any use of the information to criminally investigate or prosecute any alcohol or drug abuse patient.[facility] CenterIn the event this information is protected by the Federal Confidentiality of Alcohol and Drug Abuse Patient Records regulations: The Federal rules restrict any use of the information to criminally investigate or prosecute any alcohol or drug abuse patient.[facility] CenterIn the event this information is protected by the Federal Confidentiality of Alcohol and Drug Abuse Patient Records regulations: The Federal rules restrict any use of the information to criminally investigate or prosecute any alcohol or drug abuse patient.[facility] CenterIn the event this information is protected by the Federal Confidentiality of Alcohol and Drug Abuse Patient Records regulations: The Federal rules restrict any use of the information to criminally investigate or prosecute any alcohol or drug abuse patient.[facility] CenterIn the event this information is protected by the Federal Confidentiality of Alcohol and Drug Abuse Patient Records regulations: The Federal rules restrict any use of the information to criminally investigate or prosecute any alcohol or drug abuse patient.[facility] CenterIn the event this information is protected by the Federal Confidentiality of Alcohol and Drug Abuse Patient Records regulations: The Federal rules restrict any use of the information to criminally investigate or prosecute any alcohol or drug abuse patient.[facility] CenterIn the event this information is protected by the Federal Confidentiality of Alcohol and Drug Abuse Patient Records regulations: The Federal rules restrict any use of the information to criminally investigate or prosecute any alcohol or drug abuse patient.[facility] CenterIn the event this information is protected by the Federal Confidentiality of Alcohol and Drug Abuse Patient Records regulations: The Federal rules restrict any use of the information to criminally investigate or prosecute any alcohol or drug abuse patient.[facility] CenterIn the event this information is protected by the Federal Confidentiality of Alcohol and Drug Abuse Patient Records regulations: The Federal rules restrict any use of the information to criminally investigate or prosecute any alcohol or drug abuse patient.[facility] CenterIn the event this information is protected by the Federal Confidentiality of Alcohol and Drug Abuse Patient Records regulations: The Federal rules restrict any use of the information to criminally investigate or prosecute any alcohol or drug abuse patient.[facility] CenterIn the event this information is protected by the Federal Confidentiality of Alcohol and Drug Abuse Patient Records regulations: The Federal rules restrict any use of the information to criminally investigate or prosecute any alcohol or drug abuse patient.[facility] CenterIn the event this information is protected by the Federal Confidentiality of Alcohol and Drug Abuse Patient Records regulations: The Federal rules restrict any use of the information to criminally investigate or prosecute any alcohol or drug abuse patient.[facility] CenterIn the event this information is protected by the Federal Confidentiality of Alcohol and Drug Abuse Patient Records regulations: The Federal rules restrict any use of the information to criminally investigate or prosecute any alcohol or drug abuse patient.[facility] CenterIn the event this information is protected by the Federal Confidentiality of Alcohol and Drug Abuse Patient Records regulations: The Federal rules restrict any use of the information to criminally investigate or prosecute any alcohol or drug abuse patient.[facility] CenterIn the event this information is protected by the Federal Confidentiality of Alcohol and Drug Abuse Patient Records regulations: The Federal rules restrict any use of the information to criminally investigate or prosecute any alcohol or drug abuse patient.[facility] CenterIn the event this information is protected by the Federal Confidentiality of Alcohol and Drug Abuse Patient Records regulations: The Federal rules restrict any use of the information to criminally investigate or prosecute any alcohol or drug abuse patient.[facility] CenterIn the event this information is protected by the Federal Confidentiality of Alcohol and Drug Abuse Patient Records regulations: The Federal rules restrict any use of the information to criminally investigate or prosecute any alcohol or drug abuse patient.[facility] CenterIn the event this information is protected by the Federal Confidentiality of Alcohol and Drug Abuse Patient Records regulations: The Federal rules restrict any use of the information to criminally investigate or prosecute any alcohol or drug abuse patient.[facility] CenterIn the event this information is protected by the Federal Confidentiality of Alcohol and Drug Abuse Patient Records regulations: The Federal rules restrict any use of the information to criminally investigate or prosecute any alcohol or drug abuse patient.[facility] CenterIn the event this information is protected by the Federal Confidentiality of Alcohol and Drug Abuse Patient Records regulations: The Federal rules restrict any use of the information to criminally investigate or prosecute any alcohol or drug abuse patient.[facility] CenterIn the event this information is protected by the Federal Confidentiality of Alcohol and Drug Abuse Patient Records regulations: The Federal rules restrict any use of the information to criminally investigate or prosecute any alcohol or drug abuse patient.[facility] CenterIn the event this information is protected by the Federal Confidentiality of Alcohol and Drug Abuse Patient Records regulations: The Federal rules restrict any use of the information to criminally investigate or prosecute any alcohol or drug abuse patient.[facility] CenterIn the event this information is protected by the Federal Confidentiality of Alcohol and Drug Abuse Patient Records regulations: The Federal rules restrict any use of the information to criminally investigate or prosecute any alcohol or drug abuse patient.[facility] CenterIn the event this information is protected by the Federal Confidentiality of Alcohol and Drug Abuse Patient Records regulations: The Federal rules restrict any use of the information to criminally investigate or prosecute any alcohol or drug abuse patient.[facility] CenterIn the event this information is protected by the Federal Confidentiality of Alcohol and Drug Abuse Patient Records regulations: The Federal rules restrict any use of the information to criminally investigate or prosecute any alcohol or drug abuse patient.[facility] CenterIn the event this information is protected by the Federal Confidentiality of Alcohol and Drug Abuse Patient Records regulations: The Federal rules restrict any use of the information to criminally investigate or prosecute any alcohol or drug abuse patient.[facility]In the event this information is protected by the Federal Confidentiality of Alcohol and Drug Abuse Patient Records regulations: The Federal rules restrict any use of the information to criminally investigate or prosecute any alcohol or drug abuse patient.[facility] CenterIn the event this information is protected by the Federal Confidentiality of Alcohol and Drug Abuse Patient Records regulations: The Federal rules restrict any use of the information to criminally investigate or prosecute any alcohol or drug abuse patient.[facility] CenterIn the event this information is protected by the Federal Confidentiality of Alcohol and Drug Abuse Patient Records regulations: The Federal rules restrict any use of the information to criminally investigate or prosecute any alcohol or drug abuse patient.[facility] CenterIn the event this information is protected by the Federal Confidentiality of Alcohol and Drug Abuse Patient Records regulations: The Federal rules restrict any use of the information to criminally investigate or prosecute any alcohol or drug abuse patient.[facility] CenterIn the event this information is protected by the Federal Confidentiality of Alcohol and Drug Abuse Patient Records regulations: The Federal rules restrict any use of the information to criminally investigate or prosecute any alcohol or drug abuse patient.[facility] CenterIn the event this information is protected by the Federal Confidentiality of Alcohol and Drug Abuse Patient Records regulations: The Federal rules restrict any use of the information to criminally investigate or prosecute any alcohol or drug abuse patient.[facility] CenterIn the event this information is protected by the Federal Confidentiality of Alcohol and Drug Abuse Patient Records regulations: The Federal rules restrict any use of the information to criminally investigate or prosecute any alcohol or drug abuse patient.[facility] CenterIn the event this information is protected by the Federal Confidentiality of Alcohol and Drug Abuse Patient Records regulations: The Federal rules restrict any use of the information to criminally investigate or prosecute any alcohol or drug abuse patient.[facility] CenterIn the event this information is protected by the Federal Confidentiality of Alcohol and Drug Abuse Patient Records regulations: The Federal rules restrict any use of the information to criminally investigate or prosecute any alcohol or drug abuse patient.[facility] CenterIn the event this information is protected by the Federal Confidentiality of Alcohol and Drug Abuse Patient Records regulations: The Federal rules restrict any use of the information to criminally investigate or prosecute any alcohol or drug abuse patient.[facility] CenterIn the event this information is protected by the Federal Confidentiality of Alcohol and Drug Abuse Patient Records regulations: The Federal rules restrict any use of the information to criminally investigate or prosecute any alcohol or drug abuse patient.[facility] CenterIn the event this information is protected by the Federal Confidentiality of Alcohol and Drug Abuse Patient Records regulations: The Federal rules restrict any use of the information to criminally investigate or prosecute any alcohol or drug abuse patient.[facility] CenterIn the event this information is protected by the Federal Confidentiality of Alcohol and Drug Abuse Patient Records regulations: The Federal rules restrict any use of the information to criminally investigate or prosecute any alcohol or drug abuse patient.[facility] CenterIn the event this information is protected by the Federal Confidentiality of Alcohol and Drug Abuse Patient Records regulations: The Federal rules restrict any use of the information to criminally investigate or prosecute any alcohol or drug abuse patient.[facility] CenterIn the event this information is protected by the Federal Confidentiality of Alcohol and Drug Abuse Patient Records regulations: The Federal rules restrict any use of the information to criminally investigate or prosecute any alcohol or drug abuse patient.[facility] CenterIn the event this information is protected by the Federal Confidentiality of Alcohol and Drug Abuse Patient Records regulations: The Federal rules restrict any use of the information to criminally investigate or prosecute any alcohol or drug abuse patient.[facility] CenterIn the event this information is protected by the Federal Confidentiality of Alcohol and Drug Abuse Patient Records regulations: The Federal rules restrict any use of the information to criminally investigate or prosecute any alcohol or drug abuse patient.[facility] CenterIn the event this information is protected by the Federal Confidentiality of Alcohol and Drug Abuse Patient Records regulations: The Federal rules restrict any use of the information to criminally investigate or prosecute any alcohol or drug abuse patient.[facility] CenterIn the event this information is protected by the Federal Confidentiality of Alcohol and Drug Abuse Patient Records regulations: The Federal rules restrict any use of the information to criminally investigate or prosecute any alcohol or drug abuse patient.[facility] CenterIn the event this information is protected by the Federal Confidentiality of Alcohol and Drug Abuse Patient Records regulations: The Federal rules restrict any use of the information to criminally investigate or prosecute any alcohol or drug abuse patient.[facility] CenterIn the event this information is protected by the Federal Confidentiality of Alcohol and Drug Abuse Patient Records regulations: The Federal rules restrict any use of the information to criminally investigate or prosecute any alcohol or drug abuse patient.[facility] CenterIn the event this information is protected by the Federal Confidentiality of Alcohol and Drug Abuse Patient Records regulations: The Federal rules restrict any use of the information to criminally investigate or prosecute any alcohol or drug abuse patient.[facility] CenterIn the event this information is protected by the Federal Confidentiality of Alcohol and Drug Abuse Patient Records regulations: The Federal rules restrict any use of the information to criminally investigate or prosecute any alcohol or drug abuse patient.[facility] CenterIn the event this information is protected by the Federal Confidentiality of Alcohol and Drug Abuse Patient Records regulations: The Federal rules restrict any use of the information to criminally investigate or prosecute any alcohol or drug abuse patient.[facility] CenterIn the event this information is protected by the Federal Confidentiality of Alcohol and Drug Abuse Patient Records regulations: The Federal rules restrict any use of the information to criminally investigate or prosecute any alcohol or drug abuse patient.[facility] CenterIn the event this information is protected by the Federal Confidentiality of Alcohol and Drug Abuse Patient Records regulations: The Federal rules restrict any use of the information to criminally investigate or prosecute any alcohol or drug abuse patient.[facility] CenterIn the event this information is protected by the Federal Confidentiality of Alcohol and Drug Abuse Patient Records regulations: The Federal rules restrict any use of the information to criminally investigate or prosecute any alcohol or drug abuse patient.[facility] CenterIn the event this information is protected by the Federal Confidentiality of Alcohol and Drug Abuse Patient Records regulations: The Federal rules restrict any use of the information to criminally investigate or prosecute any alcohol or drug abuse patient.[facility] CenterIn the event this information is protected by the Federal Confidentiality of Alcohol and Drug Abuse Patient Records regulations: The Federal rules restrict any use of the information to criminally investigate or prosecute any alcohol or drug abuse patient.[facility] CenterIn the event this information is protected by the Federal Confidentiality of Alcohol and Drug Abuse Patient Records regulations: The Federal rules restrict any use of the information to criminally investigate or prosecute any alcohol or drug abuse patient.[facility] CenterIn the event this information is protected by the Federal Confidentiality of Alcohol and Drug Abuse Patient Records regulations: The Federal rules restrict any use of the information to criminally investigate or prosecute any alcohol or drug abuse patient.[facility] CenterIn the event this information is protected by the Federal Confidentiality of Alcohol and Drug Abuse Patient Records regulations: The Federal rules restrict any use of the information to criminally investigate or prosecute any alcohol or drug abuse patient.[facility] CenterIn the event this information is protected by the Federal Confidentiality of Alcohol and Drug Abuse Patient Records regulations: The Federal rules restrict any use of the information to criminally investigate or prosecute any alcohol or drug abuse patient.[facility] CenterIn the event this information is protected by the Federal Confidentiality of Alcohol and Drug Abuse Patient Records regulations: The Federal rules restrict any use of the information to criminally investigate or prosecute any alcohol or drug abuse patient.[facility] Reason for Visit (unrecogniz ed section and [...] CONSULT TO PHYSICAL THERAPY (AG) Belgica Herrera [address] [place] [address] [facility] [address] [place] [address] Reason Comments Patient Update Reason Comments Consult CONSULTS TO ENT AND OPTHALMOLOGY Status Reason Specialty Diagnoses / Procedures Referred By Contact Referred To Contact Authorized Employment Programs Analyst / PSYCHIATRY Diagnoses Other specified anxiety disorders My Chart Zoom New pt appt. F41.8 Procedures EST PATIENT VISIT LEVEL 1 MYC PSYC/PSYL NEW VIDEO (ZOOM) Belgica Herrera [address] [place] [address] Juancho Benedict (Miniature Set Constructor-S) [address] [facility] [address] [facility] [address] [place] [address] Reason Comments Hypertension Nausea Musculoskeletal Problem body aches and p ain Reason Comments Patient Update Neurology referral, no number on file for the patient Reason Comments Appointment CONSULT TO PHYSICAL THERAPY PLACED Reason Comments Results Appointment Patient Update Reason Onset Date Comments Supervisor Glycerin Chronic Care 07/22/2021 PCC f/u Reason Onset Date Comments Supervisor Glycerin Chronic Care 07/23/2021 Refill Reason Onset Date Comments Supervisor Glycerin Chronic Care 08/05/2021 PCC f/u Specialty Diagnoses / Procedures Referred By Contac t Referred To Contact MR IMAGING Diagnoses Malignant neoplasm of rectosigmoid junction (HCC) Procedures MRI PELVIS WO/W IVCON MRI PELVIS W/WO CONTRAST Artem Ahmadi MD [address] [facility] [address] [place] [address] Mr Imaging Referral ID Status Reason Start Date Expiration Date V isits Requested Visits Authorized Closed Auto-Generate d Referral 06/10/2021 01/10/2022 1 1 Reason Comments Follow Up mri results and diab etic Reason Onset Date Comments Supervisor Glycerin Chronic Care 09/06/2021 PCC f/u Reason Onset Date Comments Transition Of Care 09/08/2021 ED D/C 09/07/21 Supervisor Glycerin - Patient Initiated 11/2021 Received call from pt Reason Onset Date Comments Supervisor Glycerin Chronic Care 09/17/2021 PCC f/u Reason Comments Internal Referrals/resources Ophthalmolo gy Reason Comments ER F/U boil on the neck Reason Comments Internal Referrals/resources Nephrology Reason Comments Two Week Follow Up Reason Comments Schedule Surgery Reason Comments Follow Up Phone Call called pt mailbox f ull mailed letter Reason Comments Prostate Problem BPH Reason Onset Date Comments Supervisor Glycerin Chronic Care 11/01/2021 PCC f/u Reason Comments Follow Up Reason Comments Schedule Surgery Phaco Right Eye Reason Comments Diabetes Reason Comments Letter Reason Onset Date Comments Supervisor Glycerin Chronic Care 12/03/2021 PCC f/u Reason Onset Date Comments Supervisor Glycerin Chronic Care 12/28/2021 PCC f/u Reason Comments Hypertension Reason Onset Date Comments Supervisor Glycerin Chronic Care 01/07/2022 PCC f/u Reason Comments Appointment Reason Comments Consult Reason Onset Date Comments Psychiatric Problem 01/17/2022 Reason Onset Date Comments Supervisor Glycerin Hospital Follow Up 01/01 Hospital admit - [facility] Reason Onset Date Comments Behavioral Problem 01/19/2022 Reason Comments Appointment A-scan reminder Surgery Cancelled Per Patient Reason Onset Date Comments Transition Of Care 01/28/2022 CC Rastafari D /C to SNF 01/27/22 Reason Onset Date Comments Transition Of Care 02/21/2022 SNF status - SNF D/C 02/15/22 Supervisor Glycerin Chronic Care 02/21/2022 PCC f/u Reason Comments No Show Reason Comments Hypertension Pt wants to discuss PET scan to see why his body is in so much brooks Reason Onset Date Comments Supervisor Glycerin Chronic Care 03/11/2022 PCC f/u Transition Of Care 03/11/2022 TCM f/u Reason Onset Date Comments Transition Of Care 03/17/2022 TCM f/u Supervisor Glycerin Chronic Care 03/17/2022 PCC f/u Reason Onset Date Comments Transition Of Care 04/05/2022 AG D/C Reason Comments Ambulatory Social Work Community resourc es Reason Onset Date Comments Supervisor Glycerin Chronic Care 04/21/2022 PCC f/u Transition Of Care 04/21/2022 TCM f/u Reason Onset Date Comments Supervisor Glycerin Chronic Care 04/26/2022 PCC f/u Transition Of Care 04/26/2022 TCM f/u Reason Comments eyeglass perscription Reason Onset Date Comments Supervisor Glycerin Chronic Care 05/11/2022 PCC f/u Reason Comments [...] INJECT HIP LEFT [facility] [address] [place] [address] Referral ID Status Reason Start Date Expiration Date Visits Re quested Visits Authorized [id number] 1 1 Specialty Diagnoses / Procedures Referred By Vadim wiseman Referred To Contact MR IMAGING Diagnoses Pain in hip Chronic left hip pain Procedures MRI ARTHROGRAM HIP LEFT MRI ANY JT LOWER EXTREM W/CONTRAST MATERIAL Binh Lake R, DO [address] [place] [address] Mr Imaging Referral ID Status Reason Start Date Expiration Date V isits Requested Visits Authorized [id number] Closed Auto-Generate d Referral 07/01/2022 07/31/2023 1 1 Reason Comments Established Patient Reason Comments Post-op (Ophthalmology) Right Eye Reason Comments Established Patient mri Follow Up mri Pain mri Reason Comments Hospital Follow Up Vomiting and dehydra kurt Reason Comments Consult Cardio / Brush Fork / Nep hro Reason Onset Date Comments Supervisor Glycerin Chronic Care 09/29/2022 PCC f/u Transition Of Care 09/29/2022 TCM f/u Reason Onset Date Comments Transition Of Care 10/03/2022 TCM f/u Supervisor Glycerin Chronic Care 10/03/2022 PCC f/u Reason Comments New Reason Onset Date Comments Supervisor Glycerin Chronic Care 10/12/2022 PCC f/u Transition Of Care 10/12/2022 TCM f/u Reason Comments New Patient Evaluation Ischemia Reason Comments Patient Question Reason Onset Date Comments Supervisor Glycerin Chronic Care 11/01/2022 PCC f/u Transition Of Care 11/01/2022 TCM f/u Reason Comments Results Surgical pathology Reason Comments Benign Prostatic Hypertrophy Nocturia Reason Comments Consult Endocrinology Reason Comments Consult Dermatology Reason Comments Results Abcess on right unde rarm Reason Comments Internal Referrals/resources Neurology Reason Comments Appointment New patient Referral Reason Comments Supervisor Glycerin Chronic Care Pt feels sick Reason Onset Date Comments Supervisor Glycerin Chronic Care 11/24/2022 PCC f/u Reason Comments Consult Pain Management Reason Comments Medication Follow-up Reason Comments Established Patient Follow Up Pain Reason Onset Date Comments Supervisor Glycerin Chronic Care 01/27/2023 PCC f/u Reason Onset Date Comments Supervisor Glycerin Chronic Care 05/19/2023 PCC f/u Reason Onset Date Comments Supervisor Glycerin Chronic Care 05/23/2023 D/C Care Coordination - Non-CC PCP Reason Comments Consult New Patient Specialty Diagnoses / Procedures Referred By Contac t Referred To Contact Endocrinology Diagnoses Diabetes mellitus due to underlying condition, uncontrolled, with hyperglycemia (HCC) H/O medication noncompliance Procedures CONSULT TO ENDOCRINOLOGY OFFICE/OUTPATIENT NEW HIGH MDM 60-74 MINUTES Belgica Vega DO [address] [address] Referral ID Status Reason Start Date Expiration Date V isits Requested Visits Authorized [id number] Closed PCP Requested Referral 11/04/2022 11/04/2023 1 1 Reason Comments CKD Follow Up Reason Comments Home Care MD to follow Reason Comments Home Care Confirmation Call Reason Comments Home Care Specialty Diagnoses / Procedures Referred By Contac t Referred To Contact [facility] Home Care [address] [place] [id number] Referral ID Status Reason Start Date Expiration Date Visits Re quested Visits Authorized [id number] 1 1 Reason Comments Home Care Scheduling [...] Pt presents to ED via EMS from [facility] for responding slowly and indicates he is cold. Specialty Diagnoses / Procedures Referred By Vadim wiseman Referred To Contact Diagnoses Chills Procedures [email or web address] Flori Hills MD [address] [place] [address] Phone: tel: fax: [facility] [address] [place] [address] Phone: tel: fax: Referral ID Status Reason Start Date Expiration Date Visits Re quested Visits Authorized [id number] 1 1 Telephone Encounter - Bunny Giraldo) - 02/17/2020 9:28 AM ESTTelephone Encounter - Belgica Herrera - 02/17/2020 5:55 PM ESTTelephone Encounter - Samia Thomason) - 02/18/2020 2:25 PM EST Miscellaneous Notes (unrecog nized section and content) CONSULT TO ORTHOPAEDIC SURGERY PLACED. CONF. # [id number] Bunny Giraldo LPN 02/17/2020 9:29 AM documented [...] the past was ordered for patient to turkey picker from pharmacy. Glucose was 322. Please [...] this encounter Consult to behavioral health, # [id number] documented in this encounter Consult to behavioral health, # [id number] documented in this encounter Please notify patient received form from [employer] insurance indicating that they will only provide [...] questions please let me know. Carla Tripathi, PT, DPT Can discuss further at appointment Thank you, Belgica Herrera D.O. ----- Message from Carla Tripathi sent at 05/05/2020 6:22 PM EST ----- Regarding: Referral Rachelflor, I recently evaluated José Manuel for outpatient [...] questions please let me know. Carla Tripathi, LIZZ, DPT documented in this encounter Please notify [...] TO OPHTHALMOLOGY PLACED IN PORTAL CONF # [id number] CONSULT TO ENT PLACED IN PORTAL CONF # [id number] Bunny Giraldo LPN 02/21/2020 11:36 AM documented in this encounter Please send letter to patient regarding the above Thank you, Belgica Herrera D.O. The department of Neurology called into the office stating that they have tried reaching out to the patient at the telephone number listed in the patients chart [phone] and when called she reached a lady who stated that the number was incorrect and she has tried telling people from [facility] this several times. Neurology has no way in contacting the patient regarding scheduling a appointment due to no number on file. Eden Aragon CMA documented in this encounter CONSULT TO PHYSICAL THERAPY PLACED. CONF. # [id number] Bunny Giraldo LPN 02/17/2020 9:48 AM documented [...] section and content) DATE CREATED AUTHOR 01/28/2021 [facility] DATE CREATED AUTHOR AUTHOR'S ORGANIZ ATION 02/28/2022 [facility] DATE CREATED AUTHOR AUTHOR'S ORGANIZ ATION 05/17/2024 [facility] DATE CREATED AUTHOR AUTHOR'S ORGANIZ ATION 07/25/2024 [facility] DATE CREATED AUTHOR AUTHOR'S ORGANIZ ATION 12/09/2024 [facility] DATE CREATED AUTHOR AUTHOR'S ORGANIZ ATION 02/05/2025 [facility] DATE CREATED AUTHOR AUTHOR'S ORGANIZ ATION 02/11/2025 [facility] Care Teams (unrecognized sec tion and content) Grab Setter Relationship Specialty Start Date End Date Belgica Vega DO [address] [place] [address] PCP - General Family Practice 02/26/21 Belgica Vega DO [address] [place] [address] Family Practice 02/26/21 Jen Bergman, utilization reviewerSupervisor Glycerin 09/23/20 Grab Setter Relationship Specialty Start Date End Date Belgica Vega DO [address] [place] [address] PCP - General Family Practice 02/26/21 Belgica Vega DO [address] [place] [address] Family Practice 02/26/21 Jen Bergman, utilization reviewerSupervisor Glycerin 09/23/20 Grab Setter Relationship Specialty Start Date End Date Belgica Vega DO [address] [place] [address] PCP - General Family Practice 02/26/21 Belgica Vega DO [address] [place] [address] Family Practice 02/26/21 Jen Bergman, utilization reviewerSupervisor Glycerin 09/23/20 Grab Setter Relationship Specialty Start Date End Date Belgica Vega DO [address] [place] [address] PCP - General Family Practice 02/26/21 Belgica Vega DO [address] [place] [address] Family Practice 02/26/21 Jen Bergman, utilization reviewerSupervisor Glycerin 09/23/20 Grab Setter Relationship Specialty Start Date End Date Belgica Vega, DO [address] [place] [address] PCP - General [facility] Practice 02/26/21 Belgica Vega, DO [address] [place] [address] Family Practice 02/26/21 Jen Bergman, utilization reviewerSupervisor Glycerin 09/23/20 Grab Setter Relationship Specialty Start Date End Date Belgica Vega, DO [address] [place] [address] PCP - General [facility] Practice 02/26/21 Belgica Vega, DO [address] [place] [address] Family Practice 02/26/21 Jen Bergman, utilization reviewerSupervisor Glycerin 09/23/20 Grab Setter Relationship Specialty Start Date End Date Belgica Vega, DO [address] [place] [address] PCP - General [facility] Practice 02/26/21 Belgica Vega, DO [address] [place] [address] Family Practice 02/26/21 Jen Bergman, utilization reviewerSupervisor Glycerin 09/23/20 Grab Setter Relationship Specialty Start Date End Date Belgica Vega, DO [address] [place] [address] PCP - General [facility] Practice 02/26/21 Belgica Vega, DO [address] [place] [address] [facility] Practice 02/26/21 Jen Bergman, utilization reviewerSupervisor Glycerin 09/23/20 Grab Setter Relationship Specialty Start Date End Date Belgica Vega, DO [address] [place] [address] PCP - General Family Practice 02/26/21 Belgica Vega, DO [address] [place] [address] Family Practice 02/26/21 Jen Bergman, utilization reviewerSupervisor Glycerin 09/23/20 Grab Setter Relationship Specialty Start Date End Date Belgica Vega, DO [address] [place] [address] PCP - General Family Practice 02/26/21 Belgica Vega, DO [address] [place] [address] Family Practice 02/26/21 Jen Bergman, utilization reviewerSupervisor Glycerin 09/23/20 Grab Setter Relationship Specialty Start Date End Date Belgica Vega, DO [address] [place] [address] PCP - General Family Practice 02/26/21 Belgica Vega, DO [address] [place] [address] Family Practice 02/26/21 Jen Bergman, utilization reviewerSupervisor Glycerin 09/23/20 Grab Setter Relationship Specialty Start Date End Date Belgica Vega, DO [address] [place] [address] PCP - General Family Practice 02/26/21 Belgica Vega, DO [address] [place] [address] Family Practice 02/26/21 Jen Bergman, utilization reviewerSupervisor Glycerin 09/23/20 Grab Setter Relationship Specialty Start Date End Date Belgica Vega, DO [address] [place] [address] PCP - General Family Practice 02/26/21 Belgica Vega, DO [address] [place] [address] Family Practice 02/26/21 Jen Bergman, utilization reviewerSupervisor Glycerin 09/23/20 Grab Setter Relationship Specialty Start Date End Date Belgica Vega, DO [address] [place] [address] PCP - General Family Practice 02/26/21 Belgica Vega, DO [address] [place] [address] Family Practice 02/26/21 Jen Bergman, utilization reviewerSupervisor Glycerin 09/23/20 Grab Setter Relationship Specialty Start Date End Date Belgica Vega, DO [address] [place] [address] PCP - General Family Practice 02/26/21 Belgica Vega, DO [address] [place] [address] Family Practice 02/26/21 Jen Bergman, utilization reviewerSupervisor Glycerin 09/23/20 Belgica Vega, DO [address] [place] [address] Referring Family Practice 10/08/21 Grab Setter Relationship Specialty Start Date End Date Belgica Vega DO [address] [place] [address] PCP - General Family Practice 02/26/21 Belgica Vega DO [address] [place] [address] Family Practice 02/26/21 Jen Bergman, utilization reviewerSupervisor Glycerin 09/23/20 Belgica Vega, DO [address] [place] [address] Referring Family Practice 10/08/21 Grab Setter Relationship Specialty Start Date End Date Belgica Vega, DO [address] [place] [address] PCP - General Family Practice 02/26/21 Belgica Vega, DO [address] [place] [address] [facility] Practice 02/26/21 Jen Bergman, utilization reviewerSupervisor Glycerin 09/23/20 Belgica Vega, DO [address] [place] [address] Referring Family Practice 10/08/21 Grab Setter Relationship Specialty Start Date End Date Belgica Vega, DO [address] [place] [address] PCP - General Family Practice 02/26/21 Belgica Vega, DO [address] [place] [address] Family Practice 02/26/21 Jen Bergman, utilization reviewerSupervisor Glycerin 09/23/20 Belgica Vega, DO [address] [place] [address] Referring Family Practice 10/08/21 Grab Setter Relationship Specialty Start Date End Date Belgica Vega, DO [address] [place] [address] PCP - General Family Practice 02/26/21 Belgica Vega, DO [address] [place] [address] Family Practice 02/26/21 Jen Bergman, utilization reviewerSupervisor Glycerin 09/23/20 Belgica Vega, DO [address] [place] [address] Referring Family Practice 10/08/21 Grab Setter Relationship Specialty Start Date End Date Belgica Vega, DO [address] [place] [address] PCP - General Family Practice 02/26/21 Belgica Vega, DO [address] [place] [address] Family Practice 02/26/21 Jen Bergman, utilization reviewerSupervisor Glycerin 09/23/20 Belgica Vega, DO [address] [place] [address] Referring Family Practice 10/08/21 Grab Setter Relationship Specialty Start Date End Date Belgica Vega, DO [address] [place] [address] PCP - General Family Practice 02/26/21 Belgica Vega, DO [address] [place] [address] Family Practice 02/26/21 Jen Bergman, utilization reviewerSupervisor Glycerin 09/23/20 Belgica Vega, DO [address] [place] [address] Referring Family Practice 10/08/21 Grab Setter Relationship Specialty Start Date End Date Belgica Vega DO PCP - General Family Practice 02/26/21 Belgica Vega, DO Family Practice 02/26/21 Jen Bergman, utilization reviewerSupervisor Glycerin 09/23/20 Belgica Vega, DO Referring Family Practice 10/08/21 Grab Setter Relationship Specialty Start Date End Date Belgica Vega, DO PCP - General Family Medicine 02/26/21 Belgica Vega, DO Family Medicine 02/26/21 Jen Bergman, utilization reviewerSupervisor Glycerin 09/23/20 Belgica Vega, DO Referring Family Medicine 10/08/21 Grab Setter Relationship Specialty Start Date End Date Belgica Vega DO PCP - General Family Medicine 02/26/21 Belgica Vega DO Family Medicine 02/26/21 Jen Bergman, utilization reviewerSupervisor Glycerin 09/23/20 Belgica Vega, DO Referring Family Medicine 10/08/21 Grab Setter Relationship Specialty Start Date End Date Belgica Vega DO PCP - General Family Medicine 02/26/21 Belgica Vega, DO Family Medicine 02/26/21 Jen Bergman, utilization reviewerSupervisor Glycerin 09/23/20 Belgica Vega, DO Referring Family Medicine 10/08/21 Grab Setter Relationship Specialty Start Date End Date Belgica Vega, DO PCP - General Family Medicine 02/26/21 Belgica Vega, DO Family Medicine 02/26/21 Jen Bergman, utilization reviewerSupervisor Glycerin 09/23/20 Belgica Vega, DO Referring Family Medicine 10/08/21 Grab Setter Relationship Specialty Start Date End Date Belgica Vega, DO PCP - General Family Medicine 02/26/21 Belgica Vega, DO Family Medicine 02/26/21 Jen Bergman, utilization reviewerSupervisor Glycerin 09/23/20 Belgica Vega, DO Referring Family Medicine 10/08/21 Grab Setter Relationship Specialty Start Date End Date Belgica Vega, DO PCP - General Family Medicine 02/26/21 Belgica Vega, DO Family Medicine 02/26/21 Jen Bergman, utilization reviewerSupervisor Glycerin 09/23/20 Belgica Vega, DO Referring Family Medicine 10/08/21 Grab Setter Relationship Specialty Start Date End Date Belgica Vega, DO PCP - General Family Medicine 02/26/21 Belgica Vega, DO Family Medicine 02/26/21 Jen Bergman, utilization reviewerSupervisor Glycerin 09/23/20 Belgica Vega, DO Referring Family Medicine 10/08/21 Grab Setter Relationship Specialty Start Date End Date Belgica Vega, DO PCP - General Family Medicine 02/26/21 Belgica Vega, DO Family Medicine 02/26/21 Jen Bergman, utilization reviewerSupervisor Glycerin 09/23/20 Belgica Vega, DO Referring Family Medicine 10/08/21 Grab Setter Relationship Specialty Start Date End Date Belgica Vega DO PCP - General Family Medicine 02/26/21 Belgica Vega DO Family Medicine 02/26/21 Jen Bergman, utilization reviewerSupervisor Glycerin 09/23/20 Belgica Vega DO Referring Family Medicine 10/08/21 Grab Setter Relationship Specialty Start Date End Date Belgica Vega DO PCP - General Family Medicine 02/26/21 Belgica Vega DO Family Medicine 02/26/21 Jen Bergman, utilization reviewerSupervisor Glycerin 09/23/20 Belgica Vega, DO Referring Family Medicine 10/08/21 Grab Setter Relationship Specialty Start Date End Date Belgica Vega DO PCP - General Family Medicine 02/26/21 Belgica Vega, DO Family Medicine 02/26/21 Jen Bergman, utilization reviewerSupervisor Glycerin 09/23/20 Belgica Vega, DO Referring Family Medicine 10/08/21 Grab Setter Relationship Specialty Start Date End Date Belgica Vega, DO PCP - General Family Medicine 02/26/21 Beglica Vega, DO Family Medicine 02/26/21 Jen Bergman, utilization reviewerSupervisor Glycerin 09/23/20 Belgica Vega, DO Referring Family Medicine 10/08/21 Grab Setter Relationship Specialty Start Date End Date Belgica Vega, DO PCP - General Family Medicine 02/26/21 Belgica Vega, DO Family Medicine 02/26/21 Jen Bergman, utilization reviewerSupervisor Glycerin 09/23/20 Belgica Vega, DO Referring Family Medicine 10/08/21 Grab Setter Relationship Specialty Start Date End Date Belgica Vega, DO PCP - General Family Medicine 02/26/21 Belgica Vega, DO Family Medicine 02/26/21 Jen Bergman, utilization reviewerSupervisor Glycerin 09/23/20 Belgica Vega, DO Referring Family Medicine 10/08/21 Grab Setter Relationship Specialty Start Date End Date Belgica Vega, DO PCP - General Family Medicine 02/26/21 Belgica Vega, DO Family Medicine 02/26/21 Jen Bergman, utilization reviewerSupervisor Glycerin 09/23/20 Belgica Vega, DO Referring Family Medicine 10/08/21 Grab Setter Relationship Specialty Start Date End Date Belgica Vega DO PCP - General Family Medicine 02/26/21 Belgica Vega, DO Family Medicine 02/26/21 Jen Bergman, utilization reviewerSupervisor Glycerin 09/23/20 Belgica Vega DO Referring Family Medicine 10/08/21 Grab Setter Relationship Specialty Start Date End Date Belgica Vega DO PCP - General Family Medicine 02/26/21 Belgica Vega DO Family Medicine 02/26/21 Jen Bergman, utilization reviewerSupervisor Glycerin 09/23/20 Belgica Vega DO Referring Family Medicine 10/08/21 Grab Setter Relationship Specialty Start Date End Date Belgica Vega DO PCP - General Family Medicine 02/26/21 Belgica Vega DO Family Medicine 02/26/21 Jen Bergman, utilization reviewerSupervisor Glycerin 09/23/20 Belgica Vega DO Referring Family Medicine 10/08/21 Grab Setter Relationship Specialty Start Date End Date Belgica Vega, DO PCP - General Family Medicine 02/26/21 Belgica Vega, DO Family Medicine 02/26/21 Jen Bergman, utilization reviewerSupervisor Glycerin 09/23/20 Belgica Vega, DO Referring Family Medicine 10/08/21 Grab Setter Relationship Specialty Start Date End Date Belgica Vega DO PCP - General Family Medicine 02/26/21 Belgica Vega, DO Family Medicine 02/26/21 Jen Bergman, utilization reviewerSupervisor Glycerin 09/23/20 Belgica Vega, DO Referring Family Medicine 10/08/21 Grab Setter Relationship Specialty Start Date End Date Belgica Vega DO PCP - General Family Medicine 02/26/21 Belgica Vega, DO Family Medicine 02/26/21 Jen Bergman, utilization reviewerSupervisor Glycerin 09/23/20 Belgica Vega, DO Referring Family Medicine 10/08/21 Grab Setter Relationship Specialty Start Date End Date Belgica Vega, DO PCP - General Family Medicine 02/26/21 Belgica Vega, DO Family Medicine 02/26/21 Jen Bergman, utilization reviewerSupervisor Glycerin 09/23/20 Belgica Vega, DO Referring Family Medicine 10/08/21 Grab Setter Relationship Specialty Start Date End Date Belgica Vega, DO PCP - General Family Medicine 02/26/21 Belgica Vega, DO Family Medicine 02/26/21 Jen Bergman, utilization reviewerSupervisor Glycerin 09/23/20 Belgica Vega, DO Referring Family Medicine 10/08/21 Grab Setter Relationship Specialty Start Date End Date Belgica Vega DO PCP - General Family Medicine 02/26/21 Belgica Vega, DO Family Medicine 02/26/21 Jen Bergman, utilization reviewerSupervisor Glycerin 09/23/20 Belgica Vega, DO Referring Family Medicine 10/08/21 Grab Setter Relationship Specialty Start Date End Date Belgica Vega DO PCP - General Family Medicine 02/26/21 Belgica Vega, DO Family Medicine 02/26/21 Jen Bergman, utilization reviewerSupervisor Glycerin 09/23/20 Belgica Vega, DO Referring Family Medicine 10/08/21 Grab Setter Relationship Specialty Start Date End Date Belgica Vega DO PCP - General Family Medicine 02/26/21 Belgica Vega, DO Family Medicine 02/26/21 Jen Bergman, utilization reviewerSupervisor Glycerin 09/23/20 Belgica Vega, DO Referring Family Medicine 10/08/21 Grab Setter Relationship Specialty Start Date End Date Belgica Vega DO PCP - General Family Medicine 02/26/21 Belgica Vega, DO Family Medicine 02/26/21 Jen Bergman, utilization reviewerSupervisor Glycerin 09/23/20 Belgica Vega, DO Referring Family Medicine 10/08/21 Grab Setter Relationship Specialty Start Date End Date Belgica Vega DO PCP - General Family Medicine 02/26/21 Belgica Vega, DO Family Medicine 02/26/21 Jen Bergman, utilization reviewerSupervisor Glycerin 09/23/20 Belgica Vega DO Referring Family Medicine 10/08/21 Grab Setter Relationship Specialty Start Date End Date Belgica Vega DO PCP - General Family Medicine 02/26/21 Belgica Vega, DO Family Medicine 02/26/21 Jen Bergman, utilization reviewerSupervisor Glycerin 09/23/20 Belgica Vega, DO Referring Family Medicine 10/08/21 Grab Setter Relationship Specialty Start Date End Date Belgica Vega, DO PCP - General Family Medicine 02/26/21 Belgica Vega, DO Family Medicine 02/26/21 Jen Bergman, utilization reviewerSupervisor Glycerin 09/23/20 Belgica Vega, DO Referring Family Medicine 10/08/21 Grab Setter Relationship Specialty Start Date End Date Belgica Vega, DO PCP - General Family Medicine 02/26/21 Belgica Vega, DO Family Medicine 02/26/21 Jen Bergman, utilization reviewerSupervisor Glycerin 09/23/20 Belgica Vega, DO Referring Family Medicine 10/08/21 Grab Setter Relationship Specialty Start Date End Date Belgica Vega DO PCP - General Family Medicine 02/26/21 Belgica Vega, DO Family Medicine 02/26/21 Jen Bergman, utilization reviewerSupervisor Glycerin 09/23/20 Belgica Vega, DO Referring Family Medicine 10/08/21 Grab Setter Relationship Specialty Start Date End Date Belgica Vega, DO PCP - General Family Medicine 02/26/21 Belgica Vega, DO Family Medicine 02/26/21 Jen Bergman, utilization reviewerSupervisor Glycerin 09/23/20 Belgica Vega, DO Referring Family Medicine 10/08/21 Grab Setter Relationship Specialty Start Date End Date Belgica Vega, DO PCP - General Family Medicine 02/26/21 Belgica Vega, DO [address] [place] [address] Family Medicine 02/26/21 Jen Bergman, utilization reviewerSupervisor Glycerin 09/23/20 Belgica Vega, DO Referring Family Medicine 10/08/21 Grab Setter Relationship Specialty Start Date End Date Belgica Vega DO PCP - General Family Medicine 02/26/21 Belgica Vega, DO [address] [place] [address] Family Medicine 02/26/21 Jen Bergman, utilization reviewerSupervisor Glycerin 09/23/20 Belgica Vega, DO Referring Family Medicine 10/08/21 Grab Setter Relationship Specialty Start Date End Date Belgica Vega DO PCP - General Family Medicine 02/26/21 Belgica Vega, DO [address] [place] [address] Family Medicine 02/26/21 Jen Bergman, utilization reviewerSupervisor Glycerin 09/23/20 Belgica Vega, DO Referring Family Medicine 10/08/21 Belgica Vega, DO [address] [place] [address] Referring Family Medicine 10/03/22 Grab Setter Relationship Specialty Start Date End Date Belgica Vega DO PCP - General Family Medicine 02/26/21 Belgica Vega DO [address] [place] [address] Family Medicine 02/26/21 Jen Bergman, utilization reviewerSupervisor Glycerin 09/23/20 Belgica Vega DO Referring Family Medicine 10/08/21 Belgica Vega DO [address] [place] [address] Referring Family Medicine 10/03/22 Grab Setter Relationship Specialty Start Date End Date Belgica Vega DO PCP - General Family Medicine 02/26/21 Belgica Vega DO [address] [place] [address] Family Medicine 02/26/21 Jen Bergman, utilization reviewerSupervisor Glycerin 09/23/20 Belgica Vega DO Referring Family Medicine 10/08/21 Belgica Vega DO [address] [place] [address] Referring Family Medicine 10/03/22 Grab Setter Relationship Specialty Start Date End Date Belgica Vega DO PCP - General Family Medicine 02/26/21 Belgica Vega DO [address] [place] [address] Family Medicine 02/26/21 Jen Bergman, utilization reviewerSupervisor Glycerin 09/23/20 Belgica Vega DO Referring Family Medicine 10/08/21 Belgica Vega DO [address] [place] [address] Referring Family Medicine 10/03/22 Grab Setter Relationship Specialty Start Date End Date Belgica Vega DO PCP - General Family Medicine 02/26/21 Belgica Vega DO [address] [place] [address] Family Medicine 02/26/21 Jen Bergman, utilization reviewerSupervisor Glycerin 09/23/20 Belgica Vega DO Referring Family Medicine 10/08/21 Belgica Vega DO [address] [place] [address] Referring Family Medicine 10/03/22 Grab Setter Relationship Specialty Start Date End Date Belgica Vega DO PCP - General Family Medicine 02/26/21 Belgica Vega DO [address] [place] [address] Family Medicine 02/26/21 Jen Bergman, utilization reviewerSupervisor Glycerin 09/23/20 Belgica Vega DO Referring Family Medicine 10/08/21 Belgica Vega DO [address] [place], [place] [address] [phone] Referring Family Medicine 10/03/22 Grab Setter Relationship Specialty Start Date End Date Belgica Vega DO PCP - General Family Medicine 02/26/21 Belgica Vega DO [address] [place] [address] Family Medicine 02/26/21 Jen Bergman, utilization reviewerSupervisor Glycerin 09/23/20 Belgica Vega DO Referring Family Medicine 10/08/21 Belgica Vega DO [address] [place] [address] Referring Family Medicine 10/03/22 Grab Setter Relationship Specialty Start Date End Date Belgica Vega DO PCP - General Family Medicine 02/26/21 Belgica Vega DO [address] [place] [address] Family Medicine 02/26/21 Jen Bergman, utilization reviewerSupervisor Glycerin 09/23/20 Belgica Vega DO Referring Family Medicine 10/08/21 Belgica Vega DO [address] [place] [address] Referring Family Medicine 10/03/22 Grab Setter Relationship Specialty Start Date End Date Belgica Vega DO PCP - General Family Medicine 02/26/21 Belgica Vega DO [address] [place] [address] Family Medicine 02/26/21 Jen Bergman, utilization reviewerSupervisor Glycerin 09/23/20 Belgica Vega DO Referring Family Medicine 10/08/21 Belgica Vega DO [address] [place] [address] Referring Family Medicine 10/03/22 Grab Setter Relationship Specialty Start Date End Date Belgica Vega DO PCP - General Family Medicine 02/26/21 Belgica Vega DO [address] [place] [address] Family Medicine 02/26/21 Jen Bergman, utilization reviewerSupervisor Glycerin 09/23/20 Belgica Vega DO Referring Family Medicine 10/08/21 Belgica Vega DO [address] [place], [place] [address] Referring Family Medicine 10/03/22 Grab Setter Relationship Specialty Start Date End Date Belgica Vega DO PCP - General Family Medicine 02/26/21 Belgica Vega DO [address] [place], [place] [address] [phone] Family Medicine 02/26/21 Jen Bergman, utilization reviewerSupervisor Glycerin 09/23/20 Belgica Vega DO Referring Family Medicine 10/08/21 Belgica Vega DO [address] [place], [place] [address] [phone] Referring Family Medicine 10/03/22 Grab Setter Relationship Specialty Start Date End Date Belgica Vega DO PCP - General Family Medicine 02/26/21 Belgica Vega DO [address] [place], [place] [address] [phone] Family Medicine 02/26/21 Jen Bergman, utilization reviewerSupervisor Glycerin 09/23/20 Belgica Vega DO Referring Family Medicine 10/08/21 Belgica Vega DO [address] [place] [address] Referring Family Medicine 10/03/22 Grab Setter Relationship Specialty Start Date End Date Belgica Vega DO PCP - General Family Medicine 02/26/21 Belgica Vega DO [address] [place] [address] Family Medicine 02/26/21 Jen Bergman, utilization reviewerSupervisor Glycerin 09/23/20 Belgica Vega DO Referring Family Medicine 10/08/21 Belgica Vega DO [address] [place] [address] Referring Family Medicine 10/03/22 Grab Setter Relationship Specialty Start Date End Date Belgica Vega DO PCP - General Family Medicine 02/26/21 Belgica Vega DO [address] [place] [address] Family Medicine 02/26/21 Jen Bergman, utilization reviewerSupervisor Glycerin 09/23/20 Belgica Vega DO Referring Family Medicine 10/08/21 Belgica Vega DO [address] [place] [address] Referring Family Medicine 10/03/22 Grab Setter Relationship Specialty Start Date End Date Belgica Vega DO PCP - General Family Medicine 02/26/21 Belgica Vega DO [address] [place], [place] [address] [phone] Family Medicine 02/26/21 Jen Bergman, utilization reviewerSupervisor Glycerin 09/23/20 Belgica Vega DO Referring Family Medicine 10/08/21 Belgica Vega DO [address] [place], [place] [address] [phone] Referring Family Medicine 10/03/22 Grab Setter Relationship Specialty Start Date End Date Belgica Vega DO PCP - General Family Medicine 02/26/21 Belgica Vega DO [address] [place], [place] [address] [phone] Family Medicine 02/26/21 Jen Bergman, utilization reviewerSupervisor Glycerin 09/23/20 Belgica Vega DO Referring Family Medicine 10/08/21 Belgica Vega DO [address] [place] [address] Referring Family Medicine 10/03/22 Grab Setter Relationship Specialty Start Date End Date Belgica Vega DO PCP - General Family Medicine 02/20/20 02/25/21 Grab Setter Relationship Specialty Start Date End Date Bunny Scott MD [address] [place] [address] PCP - General Internal Medicine 03/16/23 Belgica Vega DO [address] [facility] [address] [place] [address] Family Medicine 02/26/21 05/23/23 Jen Bergman, utilization reviewerSupervisor Glycerin 09/23/20 Belgica Vega DO Referring Family Medicine 10/08/21 05/23/23 Belgica Vega DO [address] [address] Referring Family Medicine 10/03/22 05/23/23 Grab Setter Relationship Specialty Start Date End Date Bunny Scott MD [address] [place] [address] PCP - General Internal Medicine 03/16/23 Belgica Vega DO [address] [address] Family Medicine 02/26/21 05/23/23 Jen Bergman, utilization reviewerSupervisor Glycerin 09/23/20 Belgica Vega DO Referring Family Medicine 10/08/21 05/23/23 Belgica Vega DO [address] [address] Referring Family Medicine 10/03/22 05/23/23 Grab Setter Relationship Specialty Start Date End Date Bunny Scott MD [address] [place] [address] PCP - General Internal Medicine 03/16/23 Grab Setter Relationship Specialty Start Date End Date Bunny Scott MD [address] [place] [address] PCP - General Internal Medicine 03/16/23 Grab Setter Relationship Specialty Start Date End Date Bunny Scott MD [address] [place] [address] PCP - General Internal Medicine 03/16/23 Grab Setter Relationship Specialty Start Date End Date Bunny Scott MD [address] [place] [address] PCP - General Internal Medicine 03/16/23 Grab Setter Relationship Specialty Start Date End Date Bunny Scott MD [address] [place] [address] PCP - General Internal Medicine 03/16/23 Grab Setter Relationship Specialty Start Date End Date Bunny Scott MD [address] [place] [address] PCP - General Internal Medicine 03/16/23 Bunny Scott MD [address] [place] [address] Home Care Provider Internal Medicine 10/12/23 Grab Setter Relationship Specialty Start Date End Date Bunny Scott MD [address] [place] [address] PCP - General Internal Medicine 03/16/23 Bunny Scott MD [address] [place] [address] Home Care Provider Internal Medicine 10/12/23 Grab Setter Relationship Specialty Start Date End Date Bunny Scott MD [address] [place] [address] PCP - General Internal Medicine 03/16/23 Bunny Scott MD [address] [place] [address] Home Care Provider Internal Medicine 10/12/23 Simeon Hinds RN [address] [place], [place] [id number] Communication Electronic Technician Post Acute Care 10/20/23 Grab Setter Relationship Specialty Start Date End Date Bunny Scott MD [address] [place] [address] PCP - General Internal Medicine 03/16/23 Bunny Scott MD [address] [place] [address] Home Care Provider Internal Medicine 10/12/23 Simeon Hinds RN [address] [place] [address] Communication Electronic Technician Post Acute Care 10/20/23 Grab Setter Relationship Specialty Start Date End Date Bunny Scott MD [address] [place] [address] PCP - General Internal Medicine 03/16/23 Bunny Scott MD [address] [place] [address] Home Care Provider Internal Medicine 10/12/23 Simeon Hinds RN [address] [place] [address] Communication Electronic Technician Post Acute Care 10/20/23 Grab Setter Relationship Specialty Start Date End Date Bunny Scott MD [address] [place] [address] PCP - General Internal Medicine 03/16/23 Bunny Scott MD [address] [place] [address] Home Care Provider Internal Medicine 10/12/23 Simeon Hinds RN [address] [place] [address] Communication Electronic Technician Post Acute Care 10/20/23 Grab Setter Relationship Specialty Start Date End Date Bunny Scott MD [address] [place] [address] PCP - General Internal Medicine 03/16/23 Bunny Scott MD [address] [place] [address] Home Care Provider Internal Medicine 10/12/23 Simeon Hinds RN [address] [place] [address] Communication Electronic Technician Post Acute Care 10/20/23 Grab Setter Relationship Specialty Start Date End Date Bunny Scott MD [address] [place] [address] PCP - General Internal Medicine 03/16/23 Bunny Scott MD [address] [place] [address] Home Care Provider Internal Medicine 10/12/23 Simeon Hinds RN [address] [place] [address] Communication Electronic Technician Post Acute Care 10/20/23 Grab Setter Relationship Specialty Start Date End Date Bunny Scott MD [address] [place] [address] PCP - General Internal Medicine 03/16/23 Bunny Scott MD [address] [place] [address] Home Care Provider Internal Medicine 10/12/23 Simeon Hinds RN [address] [place] [address] Communication Electronic Technician Post Acute Care 10/20/23 Grab Setter Relationship Specialty Start Date End Date Bunny Scott MD [address] [place] [address] PCP - General Internal Medicine 03/16/23 Bunny Scott MD [address] [place] [address] Home Care Provider Internal Medicine 10/12/23 Simeon Hinds RN [address] [place] [address] Communication Electronic Technician Post Acute Care 10/20/23 Grab Setter Relationship Specialty Start Date End Date Bunny Scott MD [address] [place] [address] PCP - General Internal Medicine 03/16/23 Bunny Scott MD [address] [place] [address] Home Care Provider Internal Medicine 10/12/23 Simeon Hinds RN [address] [place] [address] Communication Electronic Technician Post Acute Care 10/20/23 Grab Setter Relationship Specialty Start Date End Date Bunny Scott MD [address] [place] [address] PCP - General Internal Medicine 03/16/23 Bunny Scott MD [address] [place] [address] Home Care Provider Internal Medicine 10/12/23 Simeon Hinds RN [address] [place] [address] Communication Electronic Technician Post Acute Care 10/20/23 Grab Setter Relationship Specialty Start Date End Date Bunny Scott MD [address] [place] [address] PCP - General Internal Medicine 03/16/23 Bunny Scott MD [address] [place] [address] Home Care Provider Internal Medicine 10/12/23 Simeon Hinds RN [address] [place] [address] Communication Electronic Technician Post Acute Care 10/20/23 Grab Setter Relationship Specialty Start Date End Date Bunny Scott MD [address] [place] [address] PCP - General Internal Medicine 03/16/23 Bunny Scott MD [address] [place] [address] Home Care Provider Internal Medicine 10/12/23 Simeon Hinds RN [address] [place] [address] Communication Electronic Technician Post Acute Care 10/20/23 Grab Setter Relationship Specialty Start Date End Date Bunny Scott MD [address] [place] [address] PCP - General Internal Medicine 03/16/23 Bunny Scott MD [address] [place] [address] Home Care Provider Internal Medicine 10/12/23 Simeon Hinds RN [address] [place] [address] Communication Electronic Technician Post Acute Care 10/20/23 Grab Setter Relationship Specialty Start Date End Date Bunny Scott MD [address] [place] [address] PCP - General Internal Medicine 03/16/23 Bunny Scott MD [address] [place] [address] Home Care Provider Internal Medicine 10/12/23 Simeon Hinds RN [address] [place] [address] Communication Electronic Technician Post Acute Care 10/20/23 Grab Setter Relationship Specialty Start Date End Date Bunny Scott MD [address] [place] [address] PCP - General Internal Medicine 03/16/23 Bunny Sctot MD [address] [place] [address] Home Care Provider Internal Medicine 10/12/23 Grab Setter Relationship Specialty Start Date End Date Bunny Scott MD [address] [place] [address] PCP - General Internal Medicine 03/16/23 Bunny Scott MD [address] [place] [address] Home Care Provider Internal Medicine 10/12/23 Grab Setter Relationship Specialty Start Date End Date Bunny Scott MD [address] [place] [address] PCP - General Internal Medicine 03/16/23 Bunny Scott MD [address] [place] [address] Home Care Provider Internal Medicine 10/12/23 Grab Setter Relationship Specialty Start Date End Date Bunny Scott MD [address] [place] [address] PCP - General Internal Medicine 03/16/23 Bunny Scott MD [address] [place] [address] Home Care Provider Internal Medicine 10/12/23 Grab Setter Relationship Specialty Start Date End Date Bunny Scott MD [address] [place] [address] PCP - General Internal Medicine 03/16/23 Bunny Scott MD [address] [place] [address] Home Care Provider Internal Medicine 10/12/23 Grab Setter Relationship Specialty Start Date End Date Bunny Scott MD [address] [place] [address] PCP - General Internal Medicine 03/16/23 Bunny Scott MD [address] [place] [address] Home Care Provider Internal Medicine 10/12/23 Jose Dudley MD [address] [address] Physician Nephrology 01/23/24 Grab Setter Relationship Specialty Start Date End Date Bunny Scott MD [address] [place] [address] PCP - General Internal Medicine 03/16/23 Bunny Scott MD [address] [place] [address] Home Care Provider Internal Medicine 10/12/23 Jose Dudley MD [address] [address] Physician Nephrology 01/23/24 Grab Setter Relationship Specialty Start Date End Date Bunny Scott MD [address] [place] [address] PCP - General Internal Medicine 03/16/23 Bunny Scott MD [address] [place] [address] Home Care Provider Internal Medicine 10/12/23 Jose Dudley MD [address] [address] Physician Nephrology 01/23/24 Grab Setter Relationship Specialty Start Date End Date Bunny Scott DO [address] [facility] [address] [place] [id number] PCP - General Family Medicine 12/13/23 Grab Setter Relationship Specialty Start Date End Date Bunny Scott MD [address] [place] [address] PCP - General Internal Medicine 03/16/23 Bunny Scott MD [address] [place] [address] Home Care Provider Internal Medicine 10/12/23 Jose Dudley MD [address] [address] Physician Nephrology 01/23/24 Grab Setter Relationship Specialty Start Date End Date Bunny Scott MD [address] [place] [address] PCP - General Internal Medicine 03/16/23 Bunny Scott MD [address] [place] [address] Home Care Provider Internal Medicine 10/12/23 Jose Dudley MD [address] [address] Physician Nephrology 01/23/24 Grab Setter Relationship Specialty Start Date End Date Bunny Scott MD [address] [place] [address] PCP - General Internal Medicine 03/16/23 Bunny Scott MD [address] [place] [address] Home Care Provider Internal Medicine 10/12/23 Jose Dudley MD [address] [address] Physician Nephrology 01/23/24 Grab Setter Relationship Specialty Start Date End Date Bunny Scott DO [address] [facility] [address] [place] [phone] PCP - General Family Medicine 12/13/23 Grab Setter Relationship Specialty Start Date End Date Bunny Scott MD [address] [place] [address] PCP - General Internal Medicine 03/16/23 Bunny Scott MD [address] [place] [address] Home Care Provider Internal Medicine 10/12/23 Jose Dudley MD [address] [address] Physician Nephrology 01/23/24 Grab Setter Relationship Specialty Start Date End Date Bunny Scott MD [address] [place] [address] PCP - General Internal Medicine 03/16/23 Bunny Scott MD [address] [place] [address] Home Care Provider Internal Medicine 10/12/23 Jose Dudley MD [address] [address] Physician Nephrology 01/23/24 Grab Setter Relationship Specialty Start Date End Date Bunny Scott MD [address] [place] [address] PCP - General Internal Medicine 03/16/23 Bunny Scott MD [address] [place] [address] Home Care Provider Internal Medicine 10/12/23 Jose Dudley MD [address] [address] Physician Nephrology 01/23/24 Grab Setter Relationship Specialty Start Date End Date Bunny Scott MD [address] [place] [address] PCP - General Internal Medicine 03/16/23 Bunny Scott MD [address] [place] [address] Home Care Provider Internal Medicine 07/16/24 Jose Dudley MD [address] [address] Physician Nephrology 01/23/24 Bunny Scott MD [address] [place] [address] Referring Internal Medicine 07/16/24 Grab Setter Relationship Specialty Start Date End Date Bunny Scott MD [address] [place] [address] PCP - General Internal Medicine 03/16/23 Bunny Scott MD [address] [place] [address] Home Care Provider Internal Medicine 07/16/24 Jose Dudley MD [address] [facility] [address] [place], [place] [address] Physician Nephrology 01/23/24 Bunny Scott MD [address] [place] [address] Referring Internal Medicine 07/16/24 Grab Setter Relationship Specialty Start Date End Date Bunny Scott DO [address] [place] [phone] PCP - General Family Medicine 12/13/23 Team Status: Inactive Member Role Status Dates Brittaney LORENZO MD Attending Provider Active Start: August 28, 2024 End: August 28, 2024 Grab Setter Relationship Specialty Start Date End Date Brittaney Garcia MD [address] [place] [address] PCP - General Family Medicine 11/25/24 PRN Active and Recently Administ ered Medications (unrecognized section and content) Medication Order 08/28/2022 08/29/2022 08/30/2022 lidocaine 20 mg/mL (2 %) injection (XYLOCAINE) X (OR/PROCEDURE) PRN, Starting on Mon08/30/22 at 0737, Until Mon08/31/22 at 0305, Intraprocedure 0737 (Given - Provid er: Lamonte Curtis MD, ) Scheduled Medication Order 11/27/2024 11/28/2024 11/29/2024 amLODIPine [...] at bedtime)1404 (Given - Provider: Kalyani Oreilly RN)2137 (Given - Provider: Lee Farfan RN) 0904 (Given - Provider: Kalyani Oreilly RN)1304 (Given - Provider: Kalyani Oreilly RN)2122 (Given - Provider: Lee Farfan RN) 0900 (Not Given - Provider: Christie Orozco RN - Reason: Other - Comment: dialysis)1630 (Given - Provider: Christie Orozco RN)2100 (Canceled Entry - Provider: Automatic Discharge Provider - Comment: Automatically canceled at discontinue of medication order) heparin injection 5,000 Units 5,000 Units, SubCUTAneous, Every 12 hours scheduled (2 times per day), First dose on Mon11/25/24 at 2100 0900 (Given - Provider: Kalyani Oreilly RN)2138 (Given - Provider: Lee Farfan RN) 0904 (Given - Provider: Kalyani Oreilly RN)212 (Given - Provider: Lee Farfan RN) 0900 (Canceled Entry - Provider: Automatic Discharge Provider - Comment: Automatically canceled at discontinue of medication order)2100 (Canceled Entry - Provider: Automatic Discharge Provider - Comment: Automatically canceled at discontinue of medication order) hydrALAZINE (Apresoline) tablet 50 mg 50 mg, Oral, 2 times daily, First dose on Mon11/25/24 at 2100 0901 (Given - Provider: Kalyani Oreilly RN)2136 (Given - Provider: Lee Farfan RN) 09 (Given - Provider: Kalyani Oreilly RN)2121 (Given - Provider: Lee Farfan RN) 09 (Canceled Entry - Provider: Automatic Discharge Provider - Comment: Automatically canceled at discontinue of medication order)2099 (Canceled Entry - Provider: Automatic Discharge Provider - Comment: Automatically canceled at discontinue of medication order) insulin glargine (Lantus) injection 10 Units 10 Units, SubCUTAneous, Nightly, First dose on Mon11/26/24 at 2100 213 (Given - Provider: Lee Farfan RN) 2121 (Given - Provider: Lee Farfan RN) 2099 (Canceled Entry - Provider: Automatic Discharge Provider [...] at 1700 0901 (Given - Provider: Kalyani Oreilly RN)1212 (Given - Provider: Kalyani Oreilly RN)2138 [...] 1 dose, Give after HD session complete. ADD-[place] bag, Suspected Indication (Select all that apply): Sepsis of Unknown Etiology 2138 (New Bag - Provider: Lee Farfan RN - Comment: dialysis) 005 (Stopped - Provider: Lee Farfan RN) vancomycin (Vancocin) intermittent dosing (placeholder) Other, See [...] Kalyani Oreilly, LEATHA)2122 (Given - Provider: Lee Farfan, LEATHA) 1726 (Given - Provider: Christie Orozco RN) [...] sedation for opioid reversal - MUST notify automation clerk provider immediately after first dose, may give [...] Mon11/25/24 at 1719 0416 (Given - Provider: Carla Reid RN)1212 (Given - Provider: Kalyani Oreilly RN)2137 (Given - Provider: Doniel Adolph, RN) 0408 (Given - Provider: Lee Farfan RN)1025 (Self Administered Via Pump - Provider: Kalyani Oreilly RN)1740 (Given - Provider: Kalyani Oreilly RN) 0057 (Given - Provider: Lee Farfna RN)0905 (Given - Provider: Christie Orozco, RN)1629 (Given [...] BE BASED ON THE PRIMARY CLINICAL RECORDS. [employer] [facility] provides no warranty or guarantee of the accuracy or completeness of information in this document.
[2025-03-24 08:30] LABS: AST(SGOT) 17 U/L (<=37); Alanine Aminotransfer ALT/SGPT < 5 U/L (<=46); Albumin, Serum 3.6 g/dL (3.4-4.8); Alkaline Phosphatase 96 U/L (40-129); Anion Gap 11 (5-15); BUN 61 mg/dL (4-19); BUN/Creat Ratio 9.8 RATIO (10-20); Bilirubin, Direct 0.08 mg/dL (0.00-0.30); Calcium,Total 9.1 mg/dL (7.6-11.0); Carbon Dioxide 27.8 mmol/L (21.0-32.0); Chloride 102 mmol/L (98-108); Globulin 3.1 g/dL (2.2-4.2); Glucose 175 mg/dL (70-99); Potassium 5.7 mmol/L (3.3-5.1)
== END ==
LOC: OLS.SANC 05:00
PROVIDERS: Visit Provider Internal Medicine
DX: E78.5 Hyperlipidemia, unspecified (principal); Z79.899 Other long term (current) drug therapy; E87.5 Hyperkalemia
CPT/HCPCS: 36415; 80053; 82248

== ENCOUNTER → 2025-03-25 05:00 | Outpatient (REF) | payer MEDICARE, MEDICAID, SELFPAY ==
--- OUTSIDE RECORDS SUMMARY | 2025-03-25 03:56 | XMS RPT_ITS | CCD ---
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 Name Role Phone Unavailable Primary Care Provider [...] Primary Care Provider Bunny Scott MD Unavailable [phone] Simeon Hinds RN Unavailable Unavailable Primary Care Provider Unavailedward Dudley MD, Jose Unavailable [phone] EsterBunny judd DO Primary Care Provider ARTEM AHMADI Attending UnavailARTEM Durán Referring Unavailabl e TRISTAN SCOTTA M Primary Care Unavailable ESTERALSYIA, BUNNY M Primary Care Unavailable NOÉ KENNEDY Attending Unavailable BUNNY SCOTT Primary Care Unavailable ADELFO FRANCOIS Admitting Unavaila ADELFO [place] Attending Unavaila ble ANISHA, BUNNY M Primary Care Unavailable YULIYA OLIVARES Admitting Unavailable YULIYA OLIVARES Attending Unavailable Bunny Scott MD Unavailable [phone] Bunny Scott MD Unavailable [phone] Bunny Scott MD Primary Care Provider Bunny Scott MD Unavailable Bunny Scott MD Unavailable BUNNY SCOTT Primary Care Unavailable BUNNY SCOTT Primary Care Unavailable JOSE DUDLEY Consulting Unavailable BUNNY SCOTT Attending Unavailable BUNNY SCOTT Primary Care Unavailable BUNNY SCOTT Admitting Unavailable Brittaney Garcia MD Attending Provider Brittaney Rod MD Primary Care Provider [phone] BRITTANEY GARCIA Primary Care Unavailable FLORI HILLS [...] (4 sources) Penicillins Drug Allergy 07-24-2020 Unknown [facility] (18 sources) Penicillins; Translations: [PENICILLINS] Propensity to adverse reactions to drug 07-24-2020 Unknown [facility] (20 sources) Penicillins Propensity to adverse reactions to drug 07-24-2020 Unknown [facility] (5 sources) Penicillins Propensity to adverse reactions to drug 07-24-2020 Unknown [facility] (2 sources) Penicillins Propensity to adverse reactions 07-24-2020 Unknown [facility] Medications Current Medications Medication Drug Class(es) Dates [...] tuberculin skin test, unspecified formulation Given 04/28/2021 [id number] 200 actuat albuterol 0.09 mg/actuat metered dose [...] Comment on above: Take 1 tablet by [facility] twice daily for 5 days. Take [...] Entry) Start: 01-30-2022 take 1 capsule by [facility] every week ergocalciferol 50,000 unit capsule (VITAMIN D2, DRISDOL) Take 1 capsule by mouth one time a week. 4 capsule 0 01/30/2022 Active Comment on above: Take 1 capsule by [facility] one time a week. finasteride 5 mg oral tablet (13 sources) 5-alpha Reductase Inhibitor Start: 05-04-2022 End: 08-02-2022 take 1 tablet by mouth once daily finasteride (PROSCAR) 5 mg tablet Take 1 tablet by mouth once daily. 90 tablet 3 05/04/2022 08/02/2022 Active Comment on above: Take 1 tablet by [facility] once daily. furosemide 20 mg oral [...] on above: Take 1 capsule by mo [facility] three times daily for 90 days. [...] on above: Take 2 tablets by mo [facility] every 8 hours. atorvastatin 40 mg [...] the event of a Fluress shortage, administer [place]-Fluor 1 drop into both eyes as directed [...] Comment on above: Take 1 capsule by [facility] one time a week. cholecalciferol 9.52 unt/ml [...] Comment on above: Take 1 capsule by [facility] three times daily. cyclobenzaprine hydrochloride 10 mg [...] on above: Take 2 tablets by mo [facility] daily with dinner. Take 1 tablet [...] corinne th once daily. polyethylene glycol 3350 [id number] mg powder for oral solution (20 sources) [...] one time a week. 07/10/2024 Discontinued sennosides, penitentiary 8.6 mg oral tablet (20 sources) Start: End: take 1 tablet by mouth once daily senna (SENOKOT) 8.6 mg tab Take 1 tablet by mouth once daily. 05/27/2023 07/10/2024 Discontinued Start: 09-16-2022 take 1 capsule by mo [facility] once daily Sennosides (SENNA) 8.6 mg cap Take 1 capsule by mouth once daily. 30 capsule 0 09/16/2022 Suspended Comment on above: Take 1 capsule by mo [facility] once daily. Take 1 tablet by [facility] once daily. 50 ml sodium chloride [...] on above: Take 1 capsule by mo [facility] once daily. tropicamide 10 mg/ml ophthalmic [...] on above: Take 1 capsule by mo [facility] daily with breakfast. Problems Active Problems [...] disease, with long-term current use of insulin ([facility])] Onset: 2 Diseases of mouth; excluding dental [...] malignant neoplasm] Episodic Other aftercare (3 sources) [facility] (current) use of insulin; Translations: [Type 2 [...] ACCESS [facility] Non-Invasive Vascular Laboratory [facility] Upper Extremity Mapping for [...] Patent axi (more content not included)... Normal [facility] Basic Metabolic Profile (BMP )on 02-04-2025 BUN/CRE 9.7 RATIO Low 10-20 [facility] Comment on above: Order Comment: 412.2 Performed By: #### L 100.0500, L500.2500 #### [facility] [address] [place], [address] Calcium [Mass/Vol] 9.3 mg/dL Normal 7.6-11.0 [facility] Comment on above: Order Comment: 412.2 Performed By: #### L 100.0500, L500.2500 #### [facility] [address] [place], [address] Chloride [Moles/Vol] 100 mmol/L Normal 98-108 [facility] Comment on above: Order Comment: 412.2 Performed By: #### L 100.0500, L500.2500 #### [facility] [address] [place], [address] CO2 [Moles/Vol] 24.6 mmol/L Normal 21.0-32.0 [facility] Comment on above: Order Comment: 412.2 Performed By: #### L 100.0500, L500.2500 #### [facility] [address] [place], [address] Creatinine [Mass/Vol] 5.18 mg/dL High 0.70-1.20 [facility] Comment on above: Order Comment: 412.2 Performed By: #### L 100.0500, L500.2500 #### [facility] [address] [place], [address] GAP 14 Normal 5-15 [facility] Comment on above: Order Comment: 412.2 Performed By: #### L 100.0500, L500.2500 #### [facility] [address] [place], [address] GFR/1.73 sq M.predicted among non-blacks MDRD (S/P/Bld) [Vol rate/Area] 12 mL/min/{1.73_m2} Low >60 [facility] Comment on above: Order Comment: 412.2 Result Comment: mL/m in/1.73m2 CKD-EPI Creatinine Equation (2020) Performed By: #### L 100.0500, L500.2500 #### [facility] [address] [place], [address] Glucose [Mass/Vol] 121 mg/dL High 70-99 [facility] Comment on above: Order Comment: 412.2 Performed By: #### L 100.0500, L500.2500 #### [facility] [address] [place], [address] Potassium [Moles/Vol] 5.0 mmol/L Normal 3.3-5.1 [facility] Comment on above: Order Comment: 412.2 Result Comment: Hemo lysis present, Results??could be affected. ?? Performed By: #### L 100.0500, L500.2500 #### [facility] [address] [place], [address] Sodium [Moles/Vol] 138 mmol/L Normal 133-145 [facility] Comment on above: Order Comment: 412.2 Performed By: #### L 100.0500, L500.2500 #### [facility] [address] [place], [address] Urea nitrogen [Mass/Vol] 50 mg/dL High 4-19 [facility] Comment on above: Order Comment: 412.2 Performed By: #### L 100.0500, L500.2500 #### [facility] [address] [place], [address] CBC-Complete Blood Cnt No Di ffon 02-04-2025 Erythrocyte distribution width (RBC) [Ratio] 12.8 % Normal 11.6-14.6 [facility] Comment on above: Order Comment: 412.2 Performed By: #### L 100.0500, L500.2500 #### [facility] [address] [place], [address] Hematocrit (Bld) [Volume fraction] 31.6 % Low 40-54 [facility] Comment on above: Order Comment: 412.2 Performed By: #### L 100.0500, L500.2500 #### [facility] [address] [place], [address] Hemoglobin (Bld) [Mass/Vol] 10.3 g/dL Low 13.0-16.5 [facility] Comment on above: Order Comment: 412.2 Performed By: #### L 100.0500, L500.2500 #### [facility] [address] [place], [address] MCH (RBC) [Entitic mass] 30.1 pg Normal 27.0-32.0 [facility] Comment on above: Order Comment: 412.2 Performed By: #### L 100.0500, L500.2500 #### [facility] [address] [place], [address] MCHC (RBC) [Mass/Vol] 32.6 g/dL Normal 32-36 [facility] Comment on above: Order Comment: 412.2 Performed By: #### L 100.0500, L500.2500 #### [facility] [address] [place], [address] MCV (RBC) [Entitic vol] 92.4 fL Normal 80-94 [facility] Comment on above: Order Comment: 412.2 Performed By: #### L 100.0500, L500.2500 #### [facility] [address] [place], [address] Platelet mean volume (Bld) [Entitic vol] 9.3 fL Normal 6.2-12.0 [facility] Comment on above: Order Comment: 412.2 Performed By: #### L 100.0500, L500.2500 #### [facility] [address] [place], [address] Platelets (Bld) [#/Vol] 250 10*3/uL Normal 150-450 [facility] Comment on above: Order Comment: 412.2 Performed By: #### L 100.0500, L500.2500 #### [facility] [address] [place], [address] RBC (Bld) [#/Vol] 3.42 10*6/uL Low 4.6-6.2 [facility] Comment on above: Order Comment: 412.2 Performed By: #### L 100.0500, L500.2500 #### [facility] [address] [place], [address] RDW SD 43.2 fl Normal 35.1-43.9 [facility] Comment on above: Order Comment: 412.2 Performed By: #### L 100.0500, L500.2500 #### [facility] [address] [place], [address] WBC (Bld) [#/Vol] 5.6 10*3/uL Normal 4.4-11.0 [facility] Comment on above: Order Comment: 412.2 Performed By: #### L 100.0500, L500.2500 #### [facility] [address] [place], [address] Basic Metabolic Profile (BMP )on 01-15-2024 BUN/CRE 9.1 RATIO Low 10-20 [facility] Comment on above: Order Comment: 412.2 Performed By: #### L 500.2500, L100.0500 #### [facility] [address] [place], [address] Calcium [Mass/Vol] 8.9 mg/dL Normal 7.6-11.0 [facility] Comment on above: Order Comment: 412.2 Performed By: #### L 500.2500, L100.0500 #### [facility] [address] [place], [address] Chloride [Moles/Vol] 100 mmol/L Normal 98-108 [facility] Comment on above: Order Comment: 412.2 Performed By: #### L 500.2500, L100.0500 #### [facility] [address] [place], [address] CO2 [Moles/Vol] 27.9 mmol/L Normal 21.0-32.0 [facility] Comment on above: Order Comment: 412.2 Performed By: #### L 500.2500, L100.0500 #### [facility] [address] [place], [address] Creatinine [Mass/Vol] 5.60 mg/dL High 0.70-1.20 [facility] Comment on above: Order Comment: 412.2 Performed By: #### L 500.2500, L100.0500 #### [facility] [address] [place], [address] GAP 12 Normal 5-15 [facility] Comment on above: Order Comment: 412.2 Performed By: #### L 500.2500, L100.0500 #### [facility] [address] [place], [address] GFR/1.73 sq M.predicted among non-blacks MDRD (S/P/Bld) [Vol rate/Area] 11 mL/min/{1.73_m2} Low >60 [facility] Comment on above: Order Comment: 412.2 Result Comment: mL/m in/1.73m2 CKD-EPI Creatinine Equation (2020) Performed By: #### L 500.2500, L100.0500 #### [facility] [address] [place], [address] Glucose [Mass/Vol] 217 mg/dL High 70-99 [facility] Comment on above: Order Comment: 412.2 Performed By: #### L 500.2500, L100.0500 #### [facility] [address] [place], [address] Potassium [Moles/Vol] 4.7 mmol/L Normal 3.3-5.1 [facility] Comment on above: Order Comment: 412.2 Performed By: #### L 500.2500, L100.0500 #### [facility] [address] [place], [address] Sodium [Moles/Vol] 140 mmol/L Normal 133-145 [facility] Comment on above: Order Comment: 412.2 Performed By: #### L 500.2500, L100.0500 #### [facility] [address] [place], [address] Urea nitrogen [Mass/Vol] 51 mg/dL High 4-19 [facility] Comment on above: Order Comment: 412.2 Performed By: #### L 500.2500, L100.0500 #### [facility] [address] [place], [address] CBC-Complete Blood Cnt No Di ffon 01-15-2025 Erythrocyte distribution width (RBC) [Ratio] 13.1 % Normal 11.6-14.6 [facility] Comment on above: Order Comment: 412.2 Performed By: #### L 500.2500, L100.0500 #### [facility] [address] [place], [address] Hematocrit (Bld) [Volume fraction] 26.2 % Low 40-54 [facility] Comment on above: Order Comment: 412.2 Performed By: #### L 500.2500, L100.0500 #### [facility] [address] [place], [address] Hemoglobin (Bld) [Mass/Vol] 8.3 g/dL Low 13.0-16.5 [facility] Comment on above: Order Comment: 412.2 Performed By: #### L 500.2500, L100.0500 #### [facility] [address] [place], [address] MCH (RBC) [Entitic mass] 29.7 pg Normal 27.0-32.0 [facility] Comment on above: Order Comment: 412.2 Performed By: #### L 500.2500, L100.0500 #### [facility] [address] [place], [address] MCHC (RBC) [Mass/Vol] 31.7 g/dL Low 32-36 [facility] Comment on above: Order Comment: 412.2 Performed By: #### L 500.2500, L100.0500 #### [facility] [address] [place], [address] MCV (RBC) [Entitic vol] 93.9 fL Normal 80-94 [facility] Comment on above: Order Comment: 412.2 Performed By: #### L 500.2500, L100.0500 #### [facility] [address] [place], [address] Platelet mean volume (Bld) [Entitic vol] 9.7 fL Normal 6.2-12.0 [facility] Comment on above: Order Comment: 412.2 Performed By: #### L 500.2500, L100.0500 #### [facility] [address] [place], [address] Platelets (Bld) [#/Vol] 225 10*3/uL Normal 150-450 [facility] Comment on above: Order Comment: 412.2 Performed By: #### L 500.2500, L100.0500 #### [facility] [address] [place], [address] RBC (Bld) [#/Vol] 2.79 10*6/uL Low 4.6-6.2 [facility] Comment on above: Order Comment: 412.2 Performed By: #### L 500.2500, L100.0500 #### [facility] [address] [place], [address] RDW SD 45.1 fl High 35.1-43.9 [facility] Comment on above: Order Comment: 412.2 Performed By: #### L 500.2500, L100.0500 #### [facility] [address] [place], [address] WBC (Bld) [#/Vol] 7.2 10*3/uL Normal 4.4-11.0 [facility] Comment on above: Order Comment: 412.2 Performed By: #### L 500.2500, L100.0500 #### [facility] [address] [place], [address] [facility] Telephone (VASSM[facility]) -- JOSÉ MANUEL ASHTON ([id number]) 1960 M [facility] Date Time Provider Department 12/24/24 NUSRAT ALATORRE VASSMD During your visit today, we recorded the following information about you: Amina Smiley 12/24/2024 9:57 AM Signed Patient's applied exercise physiologist, Dr. Dudley, is referring patient to Dr. Alatorre for fistula placement. Patient's care facility is going to reach out to schedule appointment. Dr. Dudley's office is requesting information from patient's future appointments with Dr. Alatorre to be faxed to them at: [phone] attn: dialysis. Thank you Allergies As of [...] vomiting [R11.2] more content not included)... Normal [facility] [id number] 11-29-2024 [id number] [facility] [address] [phone] Returning to Facility Normal [facility] [phone] Next Site of Care Admission Date: 11/25/2024 12:06 PM Patient Name: JOSÉ MANUEL ASHTON Location: [address]/[facility] [id number] A Date of : 1960 -- Placement Information -- Referral Type:Residential/SNF - Return Referral ID:[id number] Provider Name:[facility] Address 1:[address] [place] [address] Address 2: City:[place] Selection Factors:Returning to Facility State:[facility] [phone] Confirmed pickup corrina e of 330PM by transport [employer] at phone number [phone]. Location of facility drop off is [facility]. Facility notified via [employer], [facility] notified on secure chat. [facility] [phone] Transport requested 330 in [employer]. Awaiting time confirmation. [facility] [phone] Discharge med list transmitted to [facility] via [facility] per [facility] request. Normal [facility] [phone] Sent updated notes t o [facility] via [employer] per [facility] request. Await review and response regarding ability to accept. [facility] notified. Normal [facility] CBC W Auto Differential pane l (Bld)on 11-29-2024 Basophils (Bld) [#/Vol] 0 10*3/uL 0.0 - 0.2 10*3/uL [facility] Basophils/100 WBC (Bld) 0.4 % 0.0 - 2.0 % [facility] Eosinophils (Bld) [#/Vol] 0.4 10*3/uL 0.0 - 0.5 10*3/uL [facility] Eosinophils/100 WBC (Bld) 7.2 % High 0.0 - 6.0 % [facility] [employer] Erythrocyte distribution width (RBC) [Ratio] 12.8 % 11.5 - 15.0 % [facility] Hematocrit (Bld) [Volume fraction] 26.1 % Low 40.0 - 52.0 % [facility] Hemoglobin (Bld) [Mass/Vol] 8.2 g/dL Low 13.0 - 18.0 g/dL [facility] [employer] Immature granulocytes (Bld) [#/Vol] 0.1 10*3/uL High NINF - 0.1 10*3/uL [facility] [employer] Immature granulocytes/100 WBC (Bld) 1.7 % 0.0 - 2.0 % [facility] Interpretation and review of laboratory results Abnormal [facility] Lymphocytes (Bld) [#/Vol] 1.5 10*3/uL 1.0 - 4.3 10*3/uL [facility] Lymphocytes/100 WBC (Bld) 28.5 % 15.0 - 45.0 % [facility] MCH (RBC) [Entitic mass] 29.4 pg 26.0 - 34.0 pg [facility] MCHC (RBC) [Mass/Vol] 31.4 % 30.5 - 36.0 % [facility] MCV (RBC) [Entitic vol] 93.5 fL 77.0 - 99.0 fL [facility] Monocytes (Bld) [#/Vol] 0.6 10*3/uL 0.0 - 0.9 10*3/uL [facility] Monocytes/100 WBC (Bld) 11.8 % 5.0 - 13.0 % [facility] Neutrophils (Bld) [#/Vol] 2.6 10*3/uL 1.8 - 7.5 10*3/uL [facility] Neutrophils/100 WBC (Bld) 50.4 % 38.0 - 82.0 % [facility] Nucleated RBC/100 WBC (Bld) [Ratio] 0 % [facility] Platelet mean volume (Bld) [Entitic vol] 8.7 fL Low 9.0 - 12.7 fL [facility] Platelets (Bld) [#/Vol] 222 10*3/uL 140 - 440 10*3/uL [facility] RBC (Bld) [#/Vol] 2.79 10*6/uL Low 4.40 - 5.9 0 10*6/uL [facility] WBC (Bld) [#/Vol] 5.2 10*3/uL 3.6 - 10.7 10*3/uL [facility] CBC WITH AUTO DIFFERENTIALon 11-29-2024 Basophils (Bld) [#/Vol] 0.0 10*3/uL Normal 0.0-0.2 [facility] Comment on above: Performed By: #### L [id number] ####Cyber Systems Engineer: JAQUELIN MO ([id number])[facility] ([facility])[address] [place] [address] Basophils/100 WBC (Bld) 0.4 % Normal 0.0-2.0 [facility] Comment on above: Performed By: #### L [id number] ####Cyber Systems Engineer: JAQUELIN MO ([id number])[facility] ([facility])[address] Eosinophils (Bld) [#/Vol] 0.4 10*3/uL Normal 0.0-0.5 [facility] Comment on above: Performed By: #### L [id number] ####Cyber Systems Engineer: JAQUELIN MO ([id number])[facility] ([facility])[address] Eosinophils/100 WBC (Bld) 7.2 % High 0.0-6.0 [facility] Comment on above: Performed By: #### L [id number] ####Cyber Systems Engineer: JAQUELIN MO ([id number])[facility] Erythrocyte distribution width (RBC) [Ratio] 12.8 % Normal 11.5-15.0 [facility] Comment on above: Performed By: #### L [id number] ####Cyber Systems Engineer: JAQUELIN MO ([id number])[facility] Hematocrit (Bld) [Volume fraction] 26.1 % Low 40.0-52.0 [facility] Comment on above: Performed By: #### L [id number] ####Cyber Systems Engineer: JAQUELIN MO ([id number])[facility] Hemoglobin (Bld) [Mass/Vol] 8.2 g/dL Low 13.0-18.0 [facility] Comment on above: Performed By: #### L [id number] ####Cyber Systems Engineer: JAQUELIN MO ([id number])[facility])[address] IMMATURE GRANS % 1.7 % Normal 0.0-2.0 [facility] Comment on above: Performed By: #### L [id number] ####Cyber Systems Engineer: JAQUELIN MO ([id number])[facility])[address] IMMATURE GRANS ABSOLUTE 0.1 10*3/uL High <0.1 [facility] Comment on above: Performed By: #### L [id number] ####Cyber Systems Engineer: JAQUELIN MO ([id number])[facility] Lymphocytes (Bld) [#/Vol] 1.5 10*3/uL Normal 1.0-4.3 [facility] Comment on above: Performed By: #### L [id number] ####Cyber Systems Engineer: JAQUELIN RASCONYOEL ([id number])[facility] Lymphocytes/100 WBC (Bld) 28.5 % Normal 15.0-45.0 [facility] Comment on above: Performed By: #### L [id number] ####Cyber Systems Engineer: JAQUELIN MO ([id number])[facility])[address] MCH (RBC) [Entitic mass] 29.4 pg Normal 26.0-34.0 [facility] Comment on above: Performed By: #### L [id number] ####Cyber Systems Engineer: JAQUELIN MO ([id number])[facility])[address] MCHC 31.4 % Normal 30.5-36.0 [facility] Comment on above: Performed By: #### L [id number] ####Cyber Systems Engineer: JAQUELIN MO ([id number])[facility])[address] [place] [address] MCV (RBC) [Entitic vol] 93.5 fL Normal 77.0-99.0 [facility] Comment on above: Performed By: #### L [id number] ####Cyber Systems Engineer: JAQUELIN MO ([id number])[facility] ([facility])[address] Monocytes (Bld) [#/Vol] 0.6 10*3/uL Normal 0.0-0.9 [facility] Comment on above: Performed By: #### L [id number] ####Cyber Systems Engineer: JAQUELIN MO ([id number])[facility] ([facility])[address] Monocytes/100 WBC (Bld) 11.8 % Normal 5.0-13.0 [facility] Comment on above: Performed By: #### L [id number] ####Cyber Systems Engineer: JAQUELIN MO ([id number])[facility] [place] (SBHLAB)[address] NEUTROPHILS ABSOLUTE 2.6 10*3/uL Normal 1.8-7.5 [facility] Comment on above: Performed By: #### L [id number] ####Cyber Systems Engineer: JAQUELIN MO ([id number])[facility] ([facility])[address] Neutrophils/100 WBC (Bld) 50.4 % Normal 38.0-82.0 [facility] Comment on above: Performed By: #### L [id number] ####Cyber Systems Engineer: JAQUELIN MO ([id number])[facility] ([facility])[address] NRBC 0.0 /100 WBCs Normal 0.0-2.0 [facility] Comment on above: Performed By: #### L [id number] ####Cyber Systems Engineer: JAQUELIN MO ([id number])[facility] ([facility])[address] Platelet mean volume (Bld) [Entitic vol] 8.7 fL Low 9.0-12.7 [facility] Comment on above: Performed By: #### L [id number] ####Cyber Systems Engineer: JAQUELIN MO ([id number])[facility] ([facility])155 [place] [address] [place] Platelets (Bld) [#/Vol] 222 10*3/uL Normal 140-440 [facility] Comment on above: Performed By: #### L [id number] ####Cyber Systems Engineer: JAQUELIN MO ([id number])[facility] ([facility])[address] [place] [address] [place] RBC (Bld) [#/Vol] 2.79 10*6/uL Low 4.40-5.90 [facility] Comment on above: Performed By: #### L [id number] ####Cyber Systems Engineer: JAQUELIN MO ([id number])[facility] ([facility])[address] WBC (Bld) [#/Vol] 5.2 10*3/uL Normal 3.6-10.7 [facility] Comment on above: Performed By: #### L [id number] ####Cyber Systems Engineer: JAQUELIN MO ([id number])[facility] ([facility])[address] COMPREHENSIVE METABOLIC PANE Tommie 11-29-2024 Albumin [Mass/Vol] 2.7 g/dL Low 3.4-4.8 [facility] Comment on above: Performed By: #### L [id number] ####Cyber Systems Engineer: JAQUELIN MO ([id number])[facility] ([facility])[address] ALP [Catalytic activity/Vol] 109 U/L Normal 40-150 [facility] Comment on above: Performed By: #### L [id number] ####Cyber Systems Engineer: JAQUELIN MO ([id number])[facility] ([facility])[address] ALT [Catalytic activity/Vol] 36 U/L Normal <40 [facility] Comment on above: Performed By: #### L [id number] ####Cyber Systems Engineer: JAQUELIN MO ([id number])[facility] ([facility])[address] Anion gap [Moles/Vol] 9 mmol/L Normal 3-13 [facility] Comment on above: Performed By: #### L [id number] ####Cyber Systems Engineer: JAQUELIN MO ([id number])[facility] ([facility])[address] AST [Catalytic activity/Vol] 22 U/L Normal <34 [facility] Comment on above: Performed By: #### L [id number] ####Cyber Systems Engineer: JAQUELIN MO ([id number])[facility] ([facility])[address] Bilirubin [Mass/Vol] 0.3 mg/dL Normal <1.2 [facility] Comment on above: Performed By: #### L [id number] ####Cyber Systems Engineer: JAQUELIN MO ([id number])[facility] ([facility])[address] Calcium [Mass/Vol] 8.9 mg/dL Normal 8.8-10.0 [facility] Comment on above: Performed By: #### L [id number] ####Cyber Systems Engineer: JAQUELIN MO ([id number])[facility] ([facility])[address] Chloride [Moles/Vol] 109 mmol/L High 98-107 [facility] Comment on above: Performed By: #### L [id number] ####Cyber Systems Engineer: JAQUELIN MO ([id number])[facility] ([facility])[address] CO2 [Moles/Vol] 26 mmol/L Normal 23-31 [facility] Comment on above: Performed By: #### L [id number] ####Cyber Systems Engineer: JAQUELIN MO ([id number])[facility] ([facility])[address] [place] [address] [place] Creatinine [Mass/Vol] 5.79 mg/dL High 0.72-1.25 [facility] Comment on above: Performed By: #### L [id number] ####Cyber Systems Engineer: JAQUELIN MO ([id number])[facility] ([facility])[address] GLOMERULAR FILTRATION RATE ML/MIN/1.73 SQ M.PREDICTED 10.2 mL/min/1.73m*2 Low >60.0 [facility] Comment on above: Result Comment: Calc ulation based on the Chronic Kidney Disease Epidemiology Collaboration (CKD-EPI) equation refit without adjustment for race Performed By: #### L [id number] ####Cyber Systems Engineer: AJQUELIN MO ([id number])[facility] [place] (SB[facility]AB)[address] Glucose [Mass/Vol] 166 mg/dL High 82-115 [facility] Comment on above: Performed By: #### L [id number] ####Cyber Systems Engineer: JAQUELIN MO ([id number])[facility] (SBHLAB)[address] Potassium [Moles/Vol] 5.1 mmol/L Normal 3.5-5.1 [facility] Comment on above: Result Comment: [facility] potassium values may be up to 0.5 mmol/L lower than serum values. Performed By: #### L [id number] ####Cyber Systems Engineer: JAQUELIN MO ([id number])[facility] (SB[facility])[address] Protein [Mass/Vol] 5.9 g/dL Low 6.4-8.3 [facility] Comment on above: Performed By: #### L [id number] ####Cyber Systems Engineer: JAQUELIN MO ([id number])[facility] (SBHLAB)[address] Sodium [Moles/Vol] 144 mmol/L Normal 136-145 [facility] Comment on above: Performed By: #### L [id number] ####Cyber Systems Engineer: JAQUELNI MO ([id number])[facility] (SBHLAB)[address] Urea nitrogen [Mass/Vol] 58 mg/dL High 9-23 [facility] Comment on above: Performed By: #### L [id number] ####Cyber Systems Engineer: JAQUELIN MO ([id number])[facility] (SBHLAB)[address] Comprehensive metabolic 1998 panelon 08-29-2025 Albumin [Mass/Vol] 2.7 g/dL Low 3.4 - 4.8 g/dL [facility] ALP [Catalytic activity/Vol] 109 U/L 40 - 150 U/L [facility] ALT [Catalytic activity/Vol] 36 U/L NINF - 40 U/L [facility] Anion gap [Moles/Vol] 9 mmol/L 3 - 13 mmol/L [facility] AST [Catalytic activity/Vol] 22 U/L NINF - 34 U/L [facility] Bilirubin [Mass/Vol] 0.3 mg/dL NINF - 1.2 mg/dL [facility] Calcium [Mass/Vol] 8.9 mg/dL 8.8 - 10. 0 mg/dL [facility] Chloride [Moles/Vol] 109 mmol/L High 98 - 10 7 mmol/L [facility] CO2 [Moles/Vol] 26 mmol/L 23 - 31 mmol/L [facility] Creatinine [Mass/Vol] 5.79 mg/dL High 0.72 - 1.25 mg/dL [facility] GFR/1.73 sq M.predicted (S/P/Bld) [Vol rate/Area] 10.2 mL/min Low - PINF [facility] Comment on above: Calculation based on the Chronic Kidney Disease Epidemiology Collaboration (CKD-EPI) equation refit without adjustment for race Glucose [Mass/Vol] 166 mg/dL High 82 - 115 mg/dL [facility] Interpretation and review of laboratory results Abnormal [facility] Potassium [Moles/Vol] 5.1 mmol/L 3.5 - 5.1 mmol/L [facility] Comment on above: Plasma potassium reji ues may be up to 0.5 mmol/L lower than serum values. Protein [Mass/Vol] 5.9 g/dL Low 6.4 - 8.3 g/dL [facility] Sodium [Moles/Vol] 144 mmol/L 136 - 145 mmol/L [facility] Urea nitrogen [Mass/Vol] 58 mg/dL High 9 - 23 mg/dL [facility] Laboratory - Chemistry and C hemistry - challengeon 11-29-2024 Glucose [Mass/Vol] 196 mg/dL High 70 - 100 mg/dL [facility] Glucose [Mass/Vol] 140 mg/dL High 70 - 100 mg/dL [facility] No Panel Informationon 11-29 Interpretation and review of laboratory results Abnormal [facility] Performed by: Heatherantonette Daly, [address] [facility] [address] CLIA ID: [id number] [facility] Interpretation and review of laboratory results Abnormal [facility] Performed by: Heatherantonette Daly, [address] [facility] [address] CLIA ID: [id number] [facility] Nursing Noteon 11-29-2024 Nursing Note 2.4L removed with tx , UF goal adjusted for BP Tolerated well Patient Name: José Manuel Ashton Patient : 1960 Acct: [id number] Date of Admission: 11/25/2024 Room[facility]: [facility] A Code Status: Full Code Allergies: [...] Regular Other (Comment) None (Room air) Diminished [place] Warm;Dry Good Soft;Rounded Active Generalized Non-pitting 11/29/24 1346 Alert (0) x4 Regular Other (Comment) None (Room air) -- [place] Warm;Dry Good Soft;Rounded Active Generalized Non-pitting Labs [...] - Before each treatment: Dialysis Machine No.: [id number] RO Machine Number: [id number] Dialyzer Lot No.: [id number] Tubing Lot Number: [id number] [employer] Secure: Yes Venous Parameters Set: Yes Arterial Parameters Set: Yes NS Bag: Yes Saline Line Double Clamped: Yes Dialyzer: Nipro Prime Volume (mL): 200 mL RO Machine Number: [id number] RO Machine Log Sheet Completed: Yes Machine Alarm Self Test: Completed, Passed (11/29/24 0932) Air Foam Detector: Tested, Proper Function, pH Reading Extracorporeal Circuit Tested for Integrity: Yes Machine Conductivity: 13.4 Manual Conductivity: 13.6 Manual Ph: 7.2 Bleach Test (Neg): Yes Bath Temperature: 36 ?C (96.8 ?F) Conductivity Meter Serial #: [id number] Machine Functioning Alarm Free? Yes Dialysis Bath: K+ (Potassium): 2 Ca+ (Calcium): 2.5 Na+ (Sodium): 137 HCO3 (Bicarb): 35 Bicarbonate Concentrate Lot No.: [id number] Acid Concentrate Lot No.: [id number] Chlorine Testing - Before each treatment and [...] acute distres (more content not included)... Normal [facility] Progress Noteon 11-29-2024 Progress Note Department of Ethnoarchaeology Professor al Medicine Division of Endocrinology, Diabetes, & Metabolism Endocrinology Note Patient Name: José Manuel Ashton : 1960 AGE: 63 y.o. Room[facility]Bed: [facility] A Admission Date: 11/25/2024 Visit Date: 11/29/2024 Reason for Endocrine Consult: DM/Pt on U300 insulin Provider/Team Requesting Consult: Dr. Hills PCP: Brittaney Garcia MD Outpt Rod Hanger: Yes [facility] ASSESSMENT: Type 2 diabetes mellitus with hyperglycemia, with terminal make up operator insulin use Lethargy and chills HTN DM2 [...] low dose sliding scale Outpt Follow Up-- [facility] Endocrinology SUBJECTIVE/HPI: CHIEF COMPLAINT: Chief Complaint Patient presents with Altered Mental Status Pt presents to ED via EMS from [facility] for responding slowly and indicates he is cold. José Manuel Ashton is a 63 yo male who presented to ED from [facility] Dialysis center with Tremor, chills and delayed [...] Concerned he will receive pain meds at long term BG controlled no change in doses 11/28/2024 [...] in bed Patient reports he resides [facility] Patient not sure of insulin doses at [facility] - Does not give his own injections. Reports blood sugars are checked before meals but not sure what blood sugar levels are. Carb controlled diet Patient reports tremors, chills Feels unsteady on feet. PT was stopped at [facility] per patient. Patient on IV vanc Glucose [...] Daily PRN cyclob (more content not included)... [facility] Progress Note OCCUPATIONAL THERAPY [facility] & ED's Name/MRN: José Manuel Ashton ([id number]) Date: 11/29/2024 Pt intended for OT treatment this date. Upon arrival, pt completing dialysis at this time and unavailable for therapy treatment. Will continue to follow and attempt as appropriate this admission. Emerson Mendoza, OT [facility] [id number] 11-28-2024 [id number] Sent updated notes t o return back to [facility] via [facility] per TCC request. Await review and response regarding ability to accept. TCC notified. [facility] CBC W Auto Differential pane l (Bld)on 11-28-2024 Basophils (Bld) [#/Vol] 0 10*3/uL 0.0 - 0.2 10*3/uL [facility] Basophils/100 WBC (Bld) 0.4 % 0.0 - 2.0 % [facility] Eosinophils (Bld) [#/Vol] 0.3 10*3/uL 0.0 - 0.5 10*3/uL [facility] Eosinophils/100 WBC (Bld) 5.9 % 0.0 - 6.0 % [facility] Erythrocyte distribution width (RBC) [Ratio] 12.8 % 11.5 - 15.0 % [facility] Hematocrit (Bld) [Volume fraction] 26.4 % Low 40.0 - 52.0 % [facility] Hemoglobin (Bld) [Mass/Vol] 8.5 g/dL Low 13.0 - 18.0 g/dL [facility] Immature granulocytes (Bld) [#/Vol] 0.1 10*3/uL High NINF - 0.1 10*3/uL [facility] Immature granulocytes/100 WBC (Bld) 1.4 % 0.0 - 2.0 % [facility] Interpretation and review of laboratory results Abnormal [facility] Lymphocytes (Bld) [#/Vol] 1.3 10*3/uL 1.0 - 4.3 10*3/uL [facility] Lymphocytes/100 WBC (Bld) 25.9 % 15.0 - 45.0 % [facility] MCH (RBC) [Entitic mass] 29.5 pg 26.0 - 34.0 pg [facility] MCHC (RBC) [Mass/Vol] 32.2 % 30.5 - 36.0 % [facility] MCV (RBC) [Entitic vol] 91.7 fL 77.0 - 99.0 fL [facility] Monocytes (Bld) [#/Vol] 0.5 10*3/uL 0.0 - 0.9 10*3/uL [facility] Monocytes/100 WBC (Bld) 10.2 % 5.0 - 13.0 % [facility] Neutrophils (Bld) [#/Vol] 2.9 10*3/uL 1.8 - 7.5 10*3/uL [facility] Neutrophils/100 WBC (Bld) 56.2 % 38.0 - 82.0 % [facility] Nucleated RBC/100 WBC (Bld) [Ratio] 0 % [facility] [employer] Platelet mean volume (Bld) [Entitic vol] 8.8 fL Low 9.0 - 12.7 fL [facility] Platelets (Bld) [#/Vol] 227 10*3/uL 140 - 440 10*3/uL [facility] RBC (Bld) [#/Vol] 2.88 10*6/uL Low 4.40 - 5.9 0 10*6/uL [facility] WBC (Bld) [#/Vol] 5.1 10*3/uL 3.6 - 10.7 10*3/uL [facility] CBC WITH AUTO DIFFERENTIALon 11-28-2024 Basophils (Bld) [#/Vol] 0.0 10*3/uL Normal 0.0-0.2 [facility] Comment on above: Performed By: #### L [id number] ####Cyber Systems Engineer: JAQUELIN MO ([id number])[facility] (SBHLAB)[address] Basophils/100 WBC (Bld) 0.4 % Normal 0.0-2.0 [facility] Comment on above: Performed By: #### L [id number] ####Cyber Systems Engineer: JAQUELIN MO ([id number])[facility] [place] (SBHLAB)[address] Eosinophils (Bld) [#/Vol] 0.3 10*3/uL Normal 0.0-0.5 [facility] Comment on above: Performed By: #### L [id number] ####Cyber Systems Engineer: JAQUELIN MO ([id number])[facility] [place] ([facility])[address] Eosinophils/100 WBC (Bld) 5.9 % Normal 0.0-6.0 [facility] Comment on above: Performed By: #### L [id number] ####Cyber Systems Engineer: JAQUELIN MO ([id number])[facility] [place] ([facility])[address] Erythrocyte distribution width (RBC) [Ratio] 12.8 % Normal 11.5-15.0 [facility] Comment on above: Performed By: #### L [id number] ####Cyber Systems Engineer: JAQUELIN MO ([id number])[facility] [place] ([facility])[address] [place] [address] Hematocrit (Bld) [Volume fraction] 26.4 % Low 40.0-52.0 [facility] Comment on above: Performed By: #### L [id number] ####Cyber Systems Engineer: JAQUELIN MO ([id number])[facility] [place] ([facility])[address] Hemoglobin (Bld) [Mass/Vol] 8.5 g/dL Low 13.0-18.0 [facility] Comment on above: Performed By: #### L [id number] ####Cyber Systems Engineer: JAQUELIN MO ([id number])[facility] [place] ([facility])[address] IMMATURE GRANS % 1.4 % Normal 0.0-2.0 [facility] Comment on above: Performed By: #### L [id number] ####Cyber Systems Engineer: JAQUELIN MO ([id number])[facility] [place] ([facility])[address] IMMATURE GRANS ABSOLUTE 0.1 10*3/uL High <0.1 [facility] Comment on above: Performed By: #### L [id number] ####Cyber Systems Engineer: JAQUELIN MO ([id number])[facility] ([facility])[address] Lymphocytes (Bld) [#/Vol] 1.3 10*3/uL Normal 1.0-4.3 [facility] Comment on above: Performed By: #### L [id number] ####Cyber Systems Engineer: JAQUELIN MO ([id number])[facility] ([facility])[address] Lymphocytes/100 WBC (Bld) 25.9 % Normal 15.0-45.0 [facility] Comment on above: Performed By: #### L [id number] ####Cyber Systems Engineer: JAQUELIN MO ([id number])[facility] [place] ([facility])[address] MCH (RBC) [Entitic mass] 29.5 pg Normal 26.0-34.0 [facility] Comment on above: Performed By: #### L [id number] ####Cyber Systems Engineer: JAQUELIN MO ([id number])[facility] ([facility])[address] MCHC 32.2 % Normal 30.5-36.0 [facility] Comment on above: Performed By: #### L [id number] ####Cyber Systems Engineer: JAQUELIN MO ([id number])[facility] ([facility])[address] [place] [address] [place] MCV (RBC) [Entitic vol] 91.7 fL Normal 77.0-99.0 [facility] Comment on above: Performed By: #### L [id number] ####Cyber Systems Engineer: JAQUELIN BROWNOliviaYOEL ([id number])[facility] [place] (SBHLAB)[address] Monocytes (Bld) [#/Vol] 0.5 10*3/uL Normal 0.0-0.9 [facility] Comment on above: Performed By: #### L [id number] ####Cyber Systems Engineer: JAQUELIN BROWNBALAJI ([id number])[facility] [place] ([facility])[address] Monocytes/100 WBC (Bld) 10.2 % Normal 5.0-13.0 [facility] Comment on above: Performed By: #### L [id number] ####Cyber Systems Engineer: JAQUELIN RASCONYOEL ([id number])[facility] [place] ([facility])[address] NEUTROPHILS ABSOLUTE 2.9 10*3/uL Normal 1.8-7.5 [facility] Comment on above: Performed By: #### L [id number] ####Cyber Systems Engineer: JAQUELIN RASCONYOEL ([id number])[facility] [place] ([facility])[address] [place] [address] Neutrophils/100 WBC (Bld) 56.2 % Normal 38.0-82.0 [facility] Comment on above: Performed By: #### L [id number] ####Cyber Systems Engineer: JAQUELIN BROWNBALAJI ([id number])[facility] [place] ([facility])[address] NRBC 0.0 /100 WBCs Normal 0.0-2.0 [facility] Comment on above: Performed By: #### L [id number] ####Cyber Systems Engineer: JAQUELIN RASCONYOEL ([id number])[facility] ([facility])[address] Platelet mean volume (Bld) [Entitic vol] 8.8 fL Low 9.0-12.7 [facility] Comment on above: Performed By: #### L [id number] ####Cyber Systems Engineer: JAQUELIN MO ([id number])[facility] [place] (SB[facility])[address] Platelets (Bld) [#/Vol] 227 10*3/uL Normal 140-440 [facility] Comment on above: Performed By: #### L [id number] ####Cyber Systems Engineer: JAQUELIN MO ([id number])[facility] [place] ([facility])[address] RBC (Bld) [#/Vol] 2.88 10*6/uL Low 4.40-5.90 [facility] Comment on above: Performed By: #### L [id number] ####Cyber Systems Engineer: JAQUELIN MO ([id number])[facility] [place] ([facility])[address] WBC (Bld) [#/Vol] 5.1 10*3/uL Normal 3.6-10.7 [facility] Comment on above: Performed By: #### L [id number] ####Cyber Systems Engineer: JAQUELIN MO ([id number])[facility] [place] ([facility])[address] COMPREHENSIVE METABOLIC PANE Tommie 11-28-2024 Albumin [Mass/Vol] 2.8 g/dL Low 3.4-4.8 [facility] Comment on above: Performed By: #### L AB17, [id number] ####Cyber Systems Engineer: JAQUELIN MO ([id number])[facility] [place] ([facility])[address] ALP [Catalytic activity/Vol] 111 U/L Normal 40-150 [facility] Comment on above: Performed By: #### L AB17, [id number] ####Cyber Systems Engineer: JAQUELIN MO ([id number])[facility] [place] ([facility])[address] [place] [address] [place] ALT [Catalytic activity/Vol] 34 U/L Normal <40 [facility] Comment on above: Performed By: #### L AB17, [id number] ####Cyber Systems Engineer: JAQUELIN MO ([id number])[facility] [place] ([facility])[address] Anion gap [Moles/Vol] 10 mmol/L Normal 3-13 [facility] Comment on above: Performed By: #### L [id number], [id number] ####Cyber Systems Engineer: JAQUELIN MO ([id number])[facility] ([facility])[address] AST [Catalytic activity/Vol] 28 U/L Normal <34 [facility] Comment on above: Performed By: #### L AB17, [id number] ####Cyber Systems Engineer: JAQUELIN MO ([id number])[facility] [place] ([facility])[address] Bilirubin [Mass/Vol] 0.4 mg/dL Normal <1.2 [facility] Comment on above: Performed By: #### L [id number], [id number] ####Cyber Systems Engineer: JAQUELIN MO ([id number])[facility] ([facility])[address] Calcium [Mass/Vol] 8.8 mg/dL Normal 8.8-10.0 [facility] Comment on above: Performed By: #### L AB17, [id number] ####Cyber Systems Engineer: JAQUELIN MO ([id number])[facility] [place] ([facility])[address] [place] [address] [place] Chloride [Moles/Vol] 106 mmol/L Normal 98-107 [facility] Comment on above: Performed By: #### L AB17, [id number] ####Cyber Systems Engineer: JAQUELIN MO ([id number])[facility] ([facility])[address] [place] [address] [place] CO2 [Moles/Vol] 27 mmol/L Normal 23-31 [facility] Comment on above: Performed By: #### L AB17, [id number] ####Cyber Systems Engineer: JAQUELIN RASCONYOEL ([id number])[facility] ([facility])[address] Creatinine [Mass/Vol] 4.87 mg/dL High 0.72-1.25 [facility] Comment on above: Performed By: #### L AB17, [id number] ####Cyber Systems Engineer: JAQUELIN BROWNBALAJI ([id number])[facility] ([facility])[address] GLOMERULAR FILTRATION RATE ML/MIN/1.73 SQ M.PREDICTED 12.6 mL/min/1.73m*2 Low >60.0 [facility] Comment on above: Result Comment: Calc ulation based on the Chronic Kidney Disease Epidemiology Collaboration (CKD-EPI) equation refit without adjustment for race Performed By: #### L AB17, [id number] ####Cyber Systems Engineer: JAQUELIN RASCONYOEL ([id number])[facility] ([facility])[address] Glucose [Mass/Vol] 135 mg/dL High 82-115 [facility] Comment on above: Performed By: #### L AB17, [id number] ####Cyber Systems Engineer: JAQUELIN BROWNBALAJI ([id number])[facility] (SBHLAB)[address] [place] [address] [place] Potassium [Moles/Vol] 4.7 mmol/L Normal 3.5-5.1 [facility] Comment on above: Result Comment: [facility] potassium values may be up to 0.5 mmol/L lower than serum values. Performed By: #### L [id number], [id number] ####Cyber Systems Engineer: JAQUELIN RASCONYOEL ([id number])[facility] (SBHLAB)[address] Protein [Mass/Vol] 6.1 g/dL Low 6.4-8.3 [facility] Comment on above: Performed By: #### L [id number], [id number] ####Cyber Systems Engineer: JAQUELINGAYLE MO ([id number])[facility] (SBHLAB)[address] Sodium [Moles/Vol] 143 mmol/L Normal 136-145 [facility] Comment on above: Performed By: #### L [id number], [id number] ####Cyber Systems Engineer: JAQUELIN MO ([id number])[facility] (SBHLAB)[address] Urea nitrogen [Mass/Vol] 43 mg/dL High 9-23 [facility] Comment on above: Performed By: #### L [id number], [id number] ####Cyber Systems Engineer: JAQUELIN MO ([id number])[facility] (SBHLAB)[address] Comprehensive metabolic 1998 panelOrdered By: Gina Gonsales on 11-28-2024 Albumin [Mass/Vol] 2.8 g/dL Low 3.4 - 4.8 g/dL [facility] ALP [Catalytic activity/Vol] 111 U/L 40 - 150 U/L [facility] ALT [Catalytic activity/Vol] 34 U/L NINF - 40 U/L [facility] Anion gap [Moles/Vol] 10 mmol/L 3 - 13 mmol/L [facility] AST [Catalytic activity/Vol] 28 [facility]L [facility] Bilirubin [Mass/Vol] 0.4 mg/dL NINF - 1.2 mg/dL [facility] Calcium [Mass/Vol] 8.8 mg/dL 8.8 - 10. 0 mg/dL [facility] Chloride [Moles/Vol] 106 mmol/L 98 - 10 7 mmol/L [facility] CO2 [Moles/Vol] 27 mmol/L 23 - 31 mmol/L [facility] Creatinine [Mass/Vol] 4.87 mg/dL High 0.72 - 1.25 mg/dL [facility] GFR/1.73 sq M.predicted (S/P/Bld) [Vol rate/Area] 12.6 mL/min Low - PINF [facility] Comment on above: Calculation based on the Chronic Kidney Disease Epidemiology Collaboration (CKD-EPI) equation refit without adjustment for race Glucose [Mass/Vol] 135 mg/dL High 82 - 115 mg/dL [facility] Interpretation and review of laboratory results Abnormal [facility] Potassium [Moles/Vol] 4.7 mmol/L 3.5 - 5.1 mmol/L [facility] Comment on above: Plasma potassium reji ues may be up to 0.5 mmol/L lower than serum values. Protein [Mass/Vol] 6.1 g/dL Low 6.4 - 8.3 g/dL [facility] Sodium [Moles/Vol] 143 mmol/L 136 - 145 mmol/L [facility] Urea nitrogen [Mass/Vol] 43 mg/dL High 9 - 23 mg/dL [facility] Laboratory - Chemistry and C hemistry - challengeon 11-28-2024 Glucose [Mass/Vol] 119 mg/dL High 70 - 100 mg/dL [facility] Glucose [Mass/Vol] 131 mg/dL High 70 - 100 mg/dL [facility] Glucose [Mass/Vol] 137 mg/dL High 70 - 100 mg/dL [facility] TSH Qn 3.04 m[IU]/L [facility] Glucose [Mass/Vol] 128 mg/dL High 70 - 100 mg/dL [facility] Laboratory - Drug toxicology on 11-28-2024 Vancomycin trough [Mass/Vol] 26.5 ug/mL [facility] No Panel Informationon 11-28 Interpretation and review of laboratory results Abnormal [facility] Performed by: Taisha Floyd [facility] [id number] CLIA ID: [id number] [facility] Interpretation and review of laboratory results Abnormal [facility] Performed by: Taisha Floyd [facility] [address] CLIA ID: [id number] [facility] Interpretation and review of laboratory results Abnormal [facility] Performed by: Taisha Floyd [facility] [id number] CLIA ID: [id number] [facility] Interpretation and review of laboratory results Abnormal [facility] Performed by: Taisha Floyd [facility] [address] CLIA ID: [id number] [facility] Progress Noteon 11-28-2024 Progress Note Nutrition Assessment [...] muscle mass loss Fluid Accumulation: Mild Generalized Maintenance Leader Strength: Not Performed Nutrition Assessment: Pt is a 63 y/o male admitted to [facility] with complaints of Chills, weakness, and lethargy, no c/o CP, cough, nausea, vomiting. Respiratory panel wnl, COVID negative. Pt has ESRD on HD- on a Monday through Monday schedule at [facility]. Pt reports having a fair to decreased [...] On: Kcal/kg Weight Used for Energy Requirements: [place] Weight for Energy Calculation (kg): 75 kg Total Energy Requirements (kcals/day): 4057-8078 kcals (25-30 kcals/kg) Weight Used for Protein Requirements: [place] Weight in Kg Used for Protein Requirements: [...] lb) (07/10/24) % Weight Change (Calculated): 4.3 [place] Body Weight (lbs) (Calculated): 166 lbs [place] Body Weight (Kg) (Calculated): 75 kg % [place] Body Weight (Calculated): 159.6 % BMI (kg/m2) [...] Oral Nutrition Supplement Arlin Juárez RD Contact: *[phone] or via Secure Chat [facility] Progress Note OCCUPATIONAL THERAPY [facility] Treatment Note Name/MRN: José Manuel Ashton ([id number]) Date of : 1960 Age: 63 y.o. Room/Bed: B4-235/B4-747 A Visit #: 1 out of 7 Discharge Recommendation: Assisted Facility Equipment Needed: No Assessment Patient was [...] mobility. (Progressing) (more content not included)... Normal [facility] Progress Note Department of Ethnoarchaeology Professor al Medicine Division of Endocrinology, Diabetes, & Metabolism Endocrinology Note Patient Name: José Manuel Ashton : 1960 AGE: 63 y.o. [facility] Admission Date: 11/25/2024 Visit Date: 11/28/2024 Reason for Endocrine Consult: DM/Pt on U300 insulin Provider/Team Requesting Consult: Dr. Hills PCP: Brittaney Garcia MD Outpt Rod Hanger: Yes [facility] ASSESSMENT: Type 2 diabetes mellitus with hyperglycemia, with terminal make up operator insulin use Lethargy and chills HTN DM2 [...] low dose sliding scale Outpt Follow Up-- [facility] Endocrinology SUBJECTIVE/HPI: CHIEF COMPLAINT: Chief Complaint Patient presents with Altered Mental Status Pt presents to ED via EMS from [facility] for responding slowly and indicates he is cold. José Manuel Ashton is a 63 yo male who presented to ED from [facility] Dialysis center with Tremor, chills and delayed [...] in bed Patient reports he resides at [facility] Patient not sure of insulin doses at [facility] - Does not give his own injections. Reports blood sugars are checked before meals but not sure what blood sugar levels are. Carb controlled diet Patient reports tremors, chills Feels unsteady on feet. PT was stopped at [facility] per patient. Patient on IV vanc Glucose [...] hours PRN bisacodyl (DULCOLAX) 5 mg, Daily MT (more content not included)... Normal [facility] THYROID STIMULATING HORMONEo n 11-28-2024 THYROID STIMULATING HORMONE 3.04 uIU/mL Normal 0.35-4.94 [facility] Comment on above: Performed By: #### L AB17, [id number] ####Cyber Systems Engineer: JAQUELIN MO ([id number])[facility] [place] [address] TSH Qnon 11-28-2024 Interpretation and review of laboratory results Normal [facility] VANCOMYCIN, AUC TIMED DOSING on 11-28-2024 VANCOMYCIN, AUC 26.5 ug/mL Normal [facility] Comment on above: Result Comment: FLAVIO Trejo COMMENTS: PreHD level. Okay to draw any time prior to HD session. Toxicity is seen at concentrations >80-100 ug/mL Therapeutic (Peak) range: 20-40 Therapeutic (Trough) range: 5-10 Performed By: #### L AB39 ####Cyber Systems Engineer: JAQUELIN MO ([id number])[facility] [place] [address] Vancomycin trough [Mass/Vol] on 11-28-2024 Toxicity is seen at concentrations >80-100 ug/mL Therapeutic (Peak) range: 20-40 Therapeutic (Trough) range: 5-10 [facility] [id number] 11-27-2024 [id number] Care Managment Initi al Assessment Date: 11/27/2024 Patient Name: José Manuel Ashton : 1960 Patient Information Source of Information: Patient Cognition/Language: WFL - Within Functional Limits Permission given to speak with patient veterans service representative/caregiver as indicated: Confirmation of Payer with patient/family: Yes Payer Name: [employer] MEDICARE/[facility] DUAL COMPLETE : No Confirmation of Primary Care Physician: Primary Caregiver: If assistance needed, confirmed caregiver ready, willing and able to care for patient at discharge: Confirmed with: Living Arrangements Current Residence: Number of Floors Number of Entry Steps: Bed/Bath Levels: Facility: Nursing Facility Skilled Facility Name: [facility] Plan to Return: Yes Lives with: Alone [...] Services: Dialysis Type: Hemo Dialysis Provider Name/Location: [facility] M-F Durable Medical Equipment: Wheelchair (standard or power), Cane Patient's Goal/Discharge Plan Patient expects to be discharged to: [facility] Discharge Planning Actions: Continue to follow, Assisted Facility referral indicated Patient's Choice Rights and [employer] and Collaborative Relationships Disclosed as Indicated for Post-Acute Care: NA Interdisciplinary Team Engagement: Social Work Referral for: Additional Information: Spoke with patient at their bedside. Introduced self and role. Discussed discharge planning. Patient has health insurance and prescription coverage. Patient states he lives at [facility] and plans to return. Tasked TRACTOR TRAILER TRUCK DRIVER to send referral in [facility]. Will await response. He receives hemodialysis there Monday through Monday. He will need ambulance transport with cot upon discharge. pmp project manager will continue to follow for any discharge planning needs. 2:46 PM UPDATE: Patient is a bedhold at [facility]. They would like to skill him for his return but he may return regardless when medically ready. They are submitting precert today. [facility] [phone] call to [facility] Home coverage line. Per [employer] coverage line, he was denied Assisted Living due to jail long term care placement at [facility]. TCC notified. Normal [facility] BLOOD CULTUREon 11-27-2024 Bacteria identified Cx Nom (Bld) BLOOD CULTURE Reference No growth at 5 days ORDER COMMENTS: Blood Collection Site: Left Lower Arm [ S = SUSCEPTIBLE R = RESISTANT I = INTERMEDIATE S-DD = Susceptible-dose dependent NS = Non-susceptible NO = No Interpretation ] Normal [facility] Comment on above: Performed By: #### L [id number] #### Cyber Systems Engineer: ESAU SKINNER ([id number]) [facility] (SACLAB) [address] [place] [address] CBC W Auto Differential pane l (Bld)on 11-27-2024 Basophils (Bld) [#/Vol] 0 10*3/uL 0.0 - 0.2 10*3/uL [employer] Basophils/100 WBC (Bld) 0.2 % 0.0 - 2.0 % [facility] [employer] Eosinophils (Bld) [#/Vol] 0.1 10*3/uL 0.0 - 0.5 10*3/uL [facility] [employer] Eosinophils/100 WBC (Bld) 2.8 % 0.0 - 6.0 % [facility] [employer] Erythrocyte distribution width (RBC) [Ratio] 12.6 % 11.5 - 15.0 % [facility] [employer] Hematocrit (Bld) [Volume fraction] 26.7 % Low 40.0 - 52.0 % [employer] Hemoglobin (Bld) [Mass/Vol] 8.5 g/dL Low 13.0 - 18.0 g/dL [employer] Immature granulocytes (Bld) [#/Vol] 0.1 10*3/uL High NINF - 0.1 10*3/uL [employer] Immature granulocytes/100 WBC (Bld) 1 % 0.0 - 2.0 % [facility] [employer] Interpretation and review of laboratory results Abnormal [facility] [employer] Lymphocytes (Bld) [#/Vol] 1.2 10*3/uL 1.0 - 4.3 10*3/uL [employer] Lymphocytes/100 WBC (Bld) 23.3 % 15.0 - 45.0 % [facility] [employer] MCH (RBC) [Entitic mass] 29 pg 26.0 - 34.0 pg [facility] MCHC (RBC) [Mass/Vol] 31.8 % 30.5 - 36.0 % [facility] MCV (RBC) [Entitic vol] 91.1 fL 77.0 - 99.0 fL [facility] Monocytes (Bld) [#/Vol] 0.6 10*3/uL 0.0 - 0.9 10*3/uL [facility] Monocytes/100 WBC (Bld) 11.9 % 5.0 - 13.0 % [facility] Neutrophils (Bld) [#/Vol] 3 10*3/uL 1.8 - 7.5 10*3/uL [facility] Neutrophils/100 WBC (Bld) 60.8 % 38.0 - 82.0 % [facility] Nucleated RBC/100 WBC (Bld) [Ratio] 0 % [facility] Platelet mean volume (Bld) [Entitic vol] 8.7 fL Low 9.0 - 12.7 fL [facility] Platelets (Bld) [#/Vol] 216 10*3/uL 140 - 440 10*3/uL [facility] RBC (Bld) [#/Vol] 2.93 10*6/uL Low 4.40 - 5.9 0 10*6/uL [facility] WBC (Bld) [#/Vol] 5 10*3/uL 3.6 - 10.7 10*3/uL [facility] CBC WITH AUTO DIFFERENTIALon 11-27-2024 Basophils (Bld) [#/Vol] 0.0 10*3/uL Normal 0.0-0.2 [facility] Comment on above: Performed By: #### L [id number] ####Cyber Systems Engineer: JAQUELIN MO ([id number])[facility] (SBHLAB)[address] Basophils/100 WBC (Bld) 0.2 % Normal 0.0-2.0 [facility] Comment on above: Performed By: #### L [id number] ####Cyber Systems Engineer: JAQUELIN MO ([id number])[facility] (SB[facility])[address] Eosinophils (Bld) [#/Vol] 0.1 10*3/uL Normal 0.0-0.5 [facility] Comment on above: Performed By: #### L [id number] ####Cyber Systems Engineer: JAQUELIN RASCONYOEL ([id number])[facility] ([facility])[address] Eosinophils/100 WBC (Bld) 2.8 % Normal 0.0-6.0 [facility] Comment on above: Performed By: #### L [id number] ####Cyber Systems Engineer: JAQUELIN RASCONYOEL ([id number])[facility] ([facility])[address] Erythrocyte distribution width (RBC) [Ratio] 12.6 % Normal 11.5-15.0 [facility] Comment on above: Performed By: #### L [id number] ####Cyber Systems Engineer: JAQUELIN BROWNBALAJI ([id number])[facility] ([facility])[address] [place] [address] Hematocrit (Bld) [Volume fraction] 26.7 % Low 40.0-52.0 [facility] Comment on above: Performed By: #### L [id number] ####Cyber Systems Engineer: JAQUELIN RASCONYOEL ([id number])[facility] ([facility])[address] [place] [address] Hemoglobin (Bld) [Mass/Vol] 8.5 g/dL Low 13.0-18.0 [facility] Comment on above: Performed By: #### L [id number] ####Cyber Systems Engineer: JAQUELIN RASCNOYOEL ([id number])[facility] ([facility])[address] IMMATURE GRANS % 1.0 % Normal 0.0-2.0 [facility] Comment on above: Performed By: #### L [id number] ####Cyber Systems Engineer: JAQUELIN RASCONYOEL ([id number])[facility] ([facility])[address] IMMATURE GRANS ABSOLUTE 0.1 10*3/uL High <0.1 [facility] Comment on above: Performed By: #### L [id number] ####Cyber Systems Engineer: JAQUELIN MO ([id number])[facility] ([facility])[address] Lymphocytes (Bld) [#/Vol] 1.2 10*3/uL Normal 1.0-4.3 [facility] Comment on above: Performed By: #### L [id number] ####Cyber Systems Engineer: JAQUELIN MO ([id number])[facility] [place] ([facility])[address] Lymphocytes/100 WBC (Bld) 23.3 % Normal 15.0-45.0 [facility] Comment on above: Performed By: #### L [id number] ####Cyber Systems Engineer: JAQUELIN MO ([id number])[facility] (SB[facility])[address] MCH (RBC) [Entitic mass] 29.0 pg Normal 26.0-34.0 [facility] Comment on above: Performed By: #### L [id number] ####Cyber Systems Engineer: JAQUELIN MO ([id number])[facility] (SB[facility])[address] [place] [address] MCHC 31.8 % Normal 30.5-36.0 [facility] Comment on above: Performed By: #### L [id number] ####Cyber Systems Engineer: JAQUELIN MO ([id number])[facility] [place] ([facility])[address] [place] [address] MCV (RBC) [Entitic vol] 91.1 fL Normal 77.0-99.0 [facility] Comment on above: Performed By: #### L [id number] ####Cyber Systems Engineer: JAQUELIN MO ([id number])[facility] ([facility])[address] [place] [address] Monocytes (Bld) [#/Vol] 0.6 10*3/uL Normal 0.0-0.9 [facility] Comment on above: Performed By: #### L [id number] ####Cyber Systems Engineer: JAQUELIN MO ([id number])[facility] [place] ([facility])[address] Monocytes/100 WBC (Bld) 11.9 % Normal 5.0-13.0 [facility] Comment on above: Performed By: #### L [id number] ####Cyber Systems Engineer: JAQUELIN MO ([id number])[facility] [place] ([facility])[address] NEUTROPHILS ABSOLUTE 3.0 10*3/uL Normal 1.8-7.5 [facility] Comment on above: Performed By: #### L [id number] ####Cyber Systems Engineer: JAQUELIN MO ([id number])[facility] ([facility])[address] [place] [address] Neutrophils/100 WBC (Bld) 60.8 % Normal 38.0-82.0 [facility] Comment on above: Performed By: #### L [id number] ####Cyber Systems Engineer: JAQUELIN MO ([id number])[facility] ([facility])[address] NRBC 0.0 /100 WBCs Normal 0.0-2.0 [facility] Comment on above: Performed By: #### L [id number] ####Cyber Systems Engineer: JAQUELIN MO ([id number])[facility] ([facility])[address] [place] [address] Platelet mean volume (Bld) [Entitic vol] 8.7 fL Low 9.0-12.7 [facility] Comment on above: Performed By: #### L [id number] ####Cyber Systems Engineer: JAQUELIN MO ([id number])[facility] ([facility])[address] Platelets (Bld) [#/Vol] 216 10*3/uL Normal 140-440 [facility] Comment on above: Performed By: #### L [id number] ####Cyber Systems Engineer: JAQUELIN MO ([id number])[facility] (SBHLAB)[address] RBC (Bld) [#/Vol] 2.93 10*6/uL Low 4.40-5.90 [facility] Comment on above: Performed By: #### L [id number] ####Cyber Systems Engineer: JAQUELIN MO ([id number])[facility] (SBAB)[address] WBC (Bld) [#/Vol] 5.0 10*3/uL Normal 3.6-10.7 [facility] Comment on above: Performed By: #### L [id number] ####Cyber Systems Engineer: JAQUELIN MO ([id number])[facility] ([facility])[address] [place] [address] COMPLETE URINALYSIS WITH REF BETHANY TO CULTUREon 11-27-2024 BACTERIA (#/HPF) IN URINE Negative Normal Negative [facility] Comment on above: Performed By: #### L [id number] ####Cyber Systems Engineer: JAQUELIN MO ([id number])[facility] ([facility])[address] [place] [address] BILIRUBIN, TOTAL PRESENCE IN URINE Negative Normal Negative [facility] Comment on above: Performed By: #### L [id number] ####Cyber Systems Engineer: JAQUELIN MO ([id number])[facility] ([facility])[address] [place] [address] Clarity (U) Clear Normal Clear [facility] Comment on above: Performed By: #### L [id number] ####Cyber Systems Engineer: JAQUELIN MO ([id number])[facility] ([facility])[address] [place] [address] Color (U) Light Yellow Normal Lt. Yellow [facility] Comment on above: Performed By: #### L [id number] ####Cyber Systems Engineer: JAQUELIN MO ([id number])[facility] ([facility])[address] Glucose (U) [Mass/Vol] 500 mg/dL Abnormal Normal (<70) [facility] Comment on above: Performed By: #### L [id number] ####Cyber Systems Engineer: JAQUELIN MO ([id number])[facility])[address] HEMOGLOBIN PRESENCE IN URINE 0.03 mg/dL Abnormal Negative [facility] Comment on above: Performed By: #### L [id number] ####Cyber Systems Engineer: JAQUELIN MO ([id number])[facility])[address] Ketones Ql (U) Negative Normal Negative [facility] Comment on above: Performed By: #### L [id number] ####Cyber Systems Engineer: JAQUELIN MO ([id number])[facility] ([facility])[address] LEUKOCYTE ESTERASE PRESENCE IN URINE BY TEST STRIP Negative Normal Negative [facility] Comment on above: Performed By: #### L [id number] ####Cyber Systems Engineer: JAQUELIN MO ([id number])[facility])[address] NITRITE PRESENCE IN URINE Negative Normal Negative [facility] Comment on above: Performed By: #### L [id number] ####Cyber Systems Engineer: JAQUELIN MO ([id number])[facility])[address] pH (U) 6.0 [pH] Normal 5.0-8.0 [facility] Comment on above: Performed By: #### L [id number] ####Cyber Systems Engineer: JAQUELIN MO ([id number])[facility])[address] Protein (U) [Mass/Vol] 100 mg/dL Abnormal Negative [facility] Comment on above: Performed By: #### L [id number] ####Cyber Systems Engineer: JAQUELIN MO ([id number])[facility] [place] ([facility])[address] RBC (#/HPF) IN URINE SEDIMENT 0-2 Normal 0-2 [facility] Comment on above: Performed By: #### L [id number] ####Cyber Systems Engineer: JAQUELIN MO ([id number])[facility] [place] ([facility])[address] Specific gravity (U) [Rel density] 1.013 Normal 1.005-1.030 [facility] Comment on above: Result Comment: FLAVIO Trejo COMMENTS: A specimen with <=10 WBC is not consistent with inflammation. This specimen will not reflex to a urine culture. Performed By: #### L [id number] ####Cyber Systems Engineer: JAQUELIN MO ([id number])[facility] [place] ([facility])[address] SQUAMOUS EPITHELIAL CELLS (#/HPF) IN URINE SEDIMENT Negative Normal 3-5 [facility] Comment on above: Performed By: #### L [id number] ####Cyber Systems Engineer: JAQUELIN MO ([id number])[facility] [place] ([facility])[address] UROBILINOGEN (MG/DL) IN URINE Normal Normal Normal (0-1) [facility] Comment on above: Performed By: #### L [id number] ####Cyber Systems Engineer: JAQUELIN MO ([id number])[facility] ([facility])[address] WBC (LEUKOCYTE) (#/HPF) IN URINE SEDIMENT 0-2 Normal 0-5 [facility] Comment on above: Performed By: #### L [id number] ####Cyber Systems Engineer: JAQUELIN MO ([id number])[facility] [place] ([facility])[address] COMPREHENSIVE METABOLIC PANE Tommie 11-27-2024 Albumin [Mass/Vol] 2.9 g/dL Low 3.4-4.8 [facility] [facility] Comment on above: Performed By: #### L AB17 ####Cyber Systems Engineer: JAQUELIN MO ([id number])[facility] [place] (SBHLAB)[address] ALP [Catalytic activity/Vol] 94 U/L Normal 40-150 [facility] Comment on above: Performed By: #### L AB17 ####Cyber Systems Engineer: JAQUELIN MO ([id number])[facility] [place] (SB[facility])[address] ALT [Catalytic activity/Vol] 16 U/L Normal <40 [facility] Comment on above: Performed By: #### L AB17 ####Cyber Systems Engineer: JAQUELIN MO ([id number])[facility] [place] (SB[facility]AB)[address] Anion gap [Moles/Vol] 11 mmol/L Normal 3-13 [facility] Comment on above: Performed By: #### L AB17 ####Cyber Systems Engineer: JAQUELIN MO ([id number])[facility] [place] (SB[facility]AB)[address] AST [Catalytic activity/Vol] 17 U/L Normal <34 [facility] Comment on above: Performed By: #### L AB17 ####Cyber Systems Engineer: JAQUELIN MO ([id number])[facility] [place] (SB[facility])[address] Bilirubin [Mass/Vol] 0.4 mg/dL Normal <1.2 [facility] Comment on above: Performed By: #### L AB17 ####Cyber Systems Engineer: JAQUELIN MO ([id number])[facility] [place] (SB[facility])[address] Calcium [Mass/Vol] 9.0 mg/dL Normal 8.8-10.0 [facility] Comment on above: Performed By: #### L AB17 ####Cyber Systems Engineer: JAQUELIN MO ([id number])[facility] [place] (SBHLAB)[address] Chloride [Moles/Vol] 106 mmol/L Normal 98-107 [facility] Comment on above: Performed By: #### L AB17 ####Cyber Systems Engineer: JAQUELIN MO ([id number])[facility] [place] (SB[facility])[address] CO2 [Moles/Vol] 27 mmol/L Normal 23-31 [facility] Comment on above: Performed By: #### L AB17 ####Cyber Systems Engineer: JAQUELIN MO ([id number])[facility] [place] (SB[facility])[address] Creatinine [Mass/Vol] 6.86 mg/dL High 0.72-1.25 [facility] Comment on above: Performed By: #### L AB17 ####Cyber Systems Engineer: JAQUELIN MO ([id number])[facility] [place] (HLAB)[address] GLOMERULAR FILTRATION RATE ML/MIN/1.73 SQ M.PREDICTED 8.3 mL/min/1.73m*2 Low >60.0 [facility] Comment on above: Result Comment: Calc ulation based on the Chronic Kidney Disease Epidemiology Collaboration (CKD-EPI) equation refit without adjustment for race Performed By: #### L AB17 ####Cyber Systems Engineer: JAQUELIN MO ([id number])[facility] [place] (SB[facility])[address] [place] [address] [place] Glucose [Mass/Vol] 161 mg/dL High 82-115 [facility] Comment on above: Performed By: #### L AB17 ####Cyber Systems Engineer: JAQUELIN MO ([id number])[facility] [place] (SB[facility])155 [place] [address] [place] Potassium [Moles/Vol] 4.8 mmol/L Normal 3.5-5.1 [facility] Comment on above: Result Comment: [facility] potassium values may be up to 0.5 mmol/L lower than serum values. Performed By: #### L AB17 ####Cyber Systems Engineer: JAQUELIN MO ([id number])[facility] (SBHLAB)[address] Protein [Mass/Vol] 6.2 g/dL Low 6.4-8.3 [facility] Comment on above: Performed By: #### L AB17 ####Cyber Systems Engineer: JAQUELIN MO ([id number])[facility] (SBHLAB)[address] Sodium [Moles/Vol] 144 mmol/L Normal 136-145 [facility] Comment on above: Performed By: #### L AB17 ####Cyber Systems Engineer: JAQUELIN MO ([id number])[facility] [place] (SBHLAB)[address] Urea nitrogen [Mass/Vol] 67 mg/dL High 9-23 [facility] Comment on above: Performed By: #### L AB17 ####Cyber Systems Engineer: JAQUELIN RASCONYOEL ([id number])[facility] (SBHLAB)[address] Comprehensive metabolic 1998 panelOrdered By: David Hartley on 11-27-2024 Albumin [Mass/Vol] 2.9 g/dL Low 3.4 - 4.8 g/dL [facility] ALP [Catalytic activity/Vol] 94 U/L 40 - 150 U/L [facility] ALT [Catalytic activity/Vol] 16 U/L NINF - 40 U/L [facility] Anion gap [Moles/Vol] 11 mmol/L 3 - 13 mmol/L [facility] AST [Catalytic activity/Vol] 17 U/L NINF - 34 U/L [facility] Bilirubin [Mass/Vol] 0.4 mg/dL NINF - 1.2 mg/dL [facility] Calcium [Mass/Vol] 9 mg/dL 8.8 - 10. 0 mg/dL [facility] Chloride [Moles/Vol] 106 mmol/L 98 - 10 7 mmol/L [facility] CO2 [Moles/Vol] 27 mmol/L 23 - 31 mmol/L [facility] Creatinine [Mass/Vol] 6.86 mg/dL High 0.72 - 1.25 mg/dL [facility] GFR/1.73 sq M.predicted (S/P/Bld) [Vol rate/Area] 8.3 mL/min Low - PINF [facility] Comment on above: Calculation based on the Chronic Kidney Disease Epidemiology Collaboration (CKD-EPI) equation refit without adjustment for race Glucose [Mass/Vol] 161 mg/dL High 82 - 115 mg/dL [facility] Interpretation and review of laboratory results Abnormal [facility] Potassium [Moles/Vol] 4.8 mmol/L 3.5 - 5.1 mmol/L [facility] Comment on above: Plasma potassium reji ues may be up to 0.5 mmol/L lower than serum values. Protein [Mass/Vol] 6.2 g/dL Low 6.4 - 8.3 g/dL [facility] Sodium [Moles/Vol] 144 mmol/L 136 - 145 mmol/L [facility] Urea nitrogen [Mass/Vol] 67 mg/dL High 9 - 23 mg/dL [facility] HBV surface Ab IA Qnon 11-27 Interpretation: <8.0 Non-Reactive 8.0-11.9 Equivocal >= 12.0 Ab Detected Note: If an equivocal result is interpreted, an antibody status is unable to be determined. Collect new specimen if clinically indicated. [facility] HBV surface Ag IA Qlon 11-27 Interpretation and review of laboratory results Normal [facility] HEPATITIS B SURFACE ANTIBODY on 11-27-2024 HEPATITIS B VIRUS SURFACE AB <8.0 Normal [facility] Comment on above: Result Comment: ORDE R COMMENTS: Interpretation: <8.0 Non-Reactive 8.0-11.9 Equivocal >= 12.0 Ab Detected Note: If an equivocal result is interpreted, an antibody status is unable to be determined. Collect new specimen if clinically indicated. Performed By: #### L [id number], [id number] ####Cyber Systems Engineer: ESAU SKINNER ([id number])[facility] ([address] HEPATITIS B VIRUS SURFACE AB <8.0 Normal [facility] Comment on above: Result Comment: FLAVIO R COMMENTS: Interpretation: <8.0 Non-Reactive 8.0-11.9 Equivocal >= 12.0 Ab Detected Note: If an equivocal result is interpreted, an antibody status is unable to be determined. Collect new specimen if clinically indicated. Performed By: #### L AB471, [id number] ####Cyber Systems Engineer: ESAU SKINNER ([id number])[facility])[address] [place] [address] HEPATITIS B SURFACE ANTIGENo n 11-27-2024 HEPATITIS B VIRUS SURFACE AG Not detected Normal Not Detected [facility] Comment on above: Performed By: #### L AB472, [id number] ####Cyber Systems Engineer: ESAU SKINNER ([id number])[facility] ([facility])[address] [place] [address] HEPATITIS B VIRUS SURFACE AG Not detected Normal Not Detected [facility] Comment on above: Performed By: #### L AB471, [id number] ####Cyber Systems Engineer: ESAU SKINNER ([id number])[address] LEGIONELLA AND STREPTOCOCCUS URINE ANTIGENon 11-27-2024 [...] pneumophila serogroups may also be detected. Normal [facility] Comment on above: Performed By: #### L [id number] ####Cyber Systems Engineer: ESAU SKINNER ([id number])[facility])[address] [place] [address] Laboratory - Chemistry and C hemistry - challengeon 11-27-2024 Glucose [Mass/Vol] 158 mg/dL High 70 - 100 mg/dL [facility] Glucose [Mass/Vol] 137 mg/dL High 70 - 100 mg/dL [facility] Glucose [Mass/Vol] 142 mg/dL High 70 - 100 mg/dL [facility] Laboratory - Drug toxicology on 11-27-2024 Vancomycin trough [Mass/Vol] 21.8 ug/mL [facility] Laboratory - Microbiology an d Antimicrobial susceptibilityon 11-27-2024 HBV surface Ab IA Qn mIU/mL [facility] HBV surface Ag IA Ql Not detected Not Detected [facility] No Panel Informationon 11-27 Interpretation and review of laboratory results Abnormal [facility] Performed by: [facility], [address] [place] [id number] CLIA ID: [id number] [facility] Extra Tube Hold for add-ons. [facility] Comment on above: Auto resulted. [facility] Interpretation and review of laboratory results Abnormal [facility] Performed by: [facility], [address] [place] [id number] CLIA ID: [id number] [facility] Interpretation and review of laboratory results Abnormal [facility] Performed by: [facility], [address] [place] [id number] CLIA ID: [id number] [facility] No Panel InformationOrdered By: Elayne Ladd on 11-27-2024 Interpretation and review of laboratory results Normal [facility] Legionella pneumophila Ag Not detected Not Detected [facility] Streptococcus pneumoniae Ag Not detected Not Detected [facility] Methodology: Lateral flow enzyme immunoassay This assay is approved for detection of antigens to Streptococcus pneumoniae and Legionella pneumophila serogroup 1; however, other L. pneumophila serogroups may also be detected. Methodology: Lateral flow enzyme immunoassay This assay is approved for detection of antigens to Streptococcus pneumoniae and Legionella pneumophila serogroup 1; however, other L. pneumophila serogroups may also be detected. [facility] Nursing Noteon 11-27-2024 Nursing Note Patient Name: José Manuel Ashton Patient : 1960 Acct: [id number] Date of Admission: 11/25/2024 Room[facility]: [facility] A Code Status: Full Code Allergies: [...] (0) 4 Regular None (Room air) Diminished [place] Warm;Dry -- -- -- Labs Lab Results [...] - Before each treatment: Dialysis Machine No.: [id number] RO Machine Number: [id number] Dialyzer Lot No.: [id number] Tubing Lot Number: [id number] All Connections Secure: Yes Venous Parameters Set: Yes Arterial Parameters Set: Yes NS Bag: Yes Saline Line Double Clamped: Yes Dialyzer: Nipro Prime Volume (mL): 200 mL RO Machine Number: [id number] RO Machine Log Sheet Completed: Yes Conductivity Meter Serial #: [id number] Machine Functioning Alarm Free? Yes Dialysis Bath: [...] a ch (more content not included)... Normal [facility] Progress Noteon 11-27-2024 Progress Note ------ -- Attestation signed by Tosha Barriga MD at 11/27/2024 5:03 PM I have reviewed the above assessment and plan with the CLASSIFIED ADVERTISING MANAGER. I agree with above note. HD today. [...] ROS Otherwise negative No interval changes to [facility]. All interval notes/labs/imaging reviewed. Objective/ Vitals: 11/26/24 [...] to call with any questions or concerns. [facility] Office This note is [...] OR ondansetron, oxyCODONE, polyethylene glycol (PEG) [address] [facility] Progress Note Nutrition rescreen completed. Pt referred to RD for ESRD patient on HD. [facility] Progress Note Department of Ethnoarchaeology Professor al Medicine Division of Endocrinology, Diabetes, & Metabolism Endocrinology Note Patient Name: José Manuel Ashton : 1960 AGE: 63 y.o. [facility] A Admission Date: 11/25/2024 Visit Date: 11/27/2024 Reason for Endocrine Consult: DM/Pt on U300 insulin Provider/Team Requesting Consult: Dr. Hills PCP: Brittaney Garcia MD Outpt [facility]: [facility] ASSESSMENT: Type 2 diabetes mellitus with hyperglycemia, with jail insulin use Lethargy and chills HTN DM2 [...] on day of discharge Outpt Follow Up-- [facility] Endocrinology SUBJECTIVE/HPI: CHIEF COMPLAINT: Chief Complaint Patient presents with Altered Mental Status Pt presents to ED via EMS from [facility] for responding slowly and indicates he is cold. José Manuel Ashton is a 63 yo male who presented to ED from [facility] Dialysis center with Tremor, chills and delayed [...] in bed Patient reports he resides at [facility] Patient not sure of insulin doses at [facility] - Does not give his own injections. [...] Scheduled Meds:Schedul (more content not included)... Normal [facility] Urinalysis complete panel (U )Ordered By: Nusrat Zelaya on 11-27-2024 Bacteria LM.HPF (Urine sed) [#/Area] Negative Negative /HPF [facility] Bilirubin Ql (U) Negative Negative mg/dL [facility] Clarity (U) Clear Clear [facility] Color (U) Light Yellow Lt. Yellow [facility] Epithelial cells.squamous LM.HPF (Urine sed) [#/Area] Negative [facility] Glucose Ql (U) 500 mg/dL Abnormal Normal (<70) [facility] Hemoglobin Ql (U) 0.03 mg/dL Abnormal Negative [facility] Interpretation and review of laboratory results Abnormal [facility] Ketones (U) [Mass/Vol] Negative Negative mg/dL [facility] Leukocyte esterase Test strip Ql (U) Negative Negative Norm/uL [facility] Nitrite Ql (U) Negative Negative [facility] pH (U) 6.0 [pH] 5.0 - 8.0 pH [facility] Protein (U) [Mass/Vol] 100 mg/dL Abnormal Negative [facility] RBC LM.HPF (Urine sed) [#/Area] 0-2 [facility] Specific gravity (U) [Rel density] 1.013 1.005 - 1.030 [facility] Urobilinogen (U) [Mass/Vol] Normal Normal (0-1) mg/dL [facility] WBC LM.HPF (Urine sed) [#/Area] 0-2 [facility] A specimen with <=10 WBC is not consistent with inflammation. This specimen will not reflex to a urine culture. [facility] VANCOMYCIN, AUC TIMED DOSING on 11-27-2024 VANCOMYCIN, AUC 21.8 ug/mL Normal [facility] Comment on above: Result Comment: FLAVIO Trejo COMMENTS: Please draw level this morning prior to HD. Toxicity is seen at concentrations >80-100 ug/mL Therapeutic (Peak) range: 20-40 Therapeutic (Trough) range: 5-10 Performed By: #### L AB39 ####Cyber Systems Engineer: JAQUELIN MO ([id number])[facility] (SBHLAB)[address] [place] [address] Vancomycin trough [Mass/Vol] on 11-27-2024 Toxicity is seen at concentrations >80-100 ug/mL Therapeutic (Peak) range: 20-40 Therapeutic (Trough) range: 5-10 [facility] COMPREHENSIVE METABOLIC PANE Tommie 11-26-2024 Albumin [Mass/Vol] 3.0 g/dL Low 3.4-4.8 [facility] Comment on above: Performed By: #### L AB17, [id number] ####Cyber Systems Engineer: JAQUELIN MO ([id number])[facility] (SBHLAB)[address] ALP [Catalytic activity/Vol] 95 U/L Normal 40-150 [facility] Comment on above: Performed By: #### L AB17, [id number] ####Cyber Systems Engineer: JAQUELIN MO ([id number])[facility] (SBHLAB)[address] ALT [Catalytic activity/Vol] 14 U/L Normal <40 [facility] Comment on above: Performed By: #### L AB17, [id number] ####Cyber Systems Engineer: JAQUELIN MO ([id number])[facility] [place] (SBHLAB)[address] Anion gap [Moles/Vol] 11 mmol/L Normal 3-13 [facility] Comment on above: Performed By: #### L AB17, [id number] ####Cyber Systems Engineer: JAQUELIN MO ([id number])[facility] (SBHLAB)[address] AST [Catalytic activity/Vol] 21 U/L Normal <34 [facility] Comment on above: Performed By: #### L AB17, [id number] ####Cyber Systems Engineer: JAQUELIN MO ([id number])[facility] (SBHLAB)[address] Bilirubin [Mass/Vol] 0.4 mg/dL Normal <1.2 [facility] Comment on above: Performed By: #### L AB17, [id number] ####Cyber Systems Engineer: JAQUELIN MO ([id number])[facility]ITAL[facility] [place] (SBHLAB)[address] Calcium [Mass/Vol] 9.0 mg/dL Normal 8.8-10.0 [facility] Comment on above: Performed By: #### L AB17, [id number] ####Cyber Systems Engineer: JAQUELIN MO ([id number])[facility]ITAL[facility] [place] (SBHLAB)[address] Chloride [Moles/Vol] 105 mmol/L Normal 98-107 [facility] Comment on above: Performed By: #### L AB17, [id number] ####Cyber Systems Engineer: JAQUELIN MO ([id number])[facility]ITAL[facility] [place] (SBHLAB)[address] CO2 [Moles/Vol] 24 mmol/L Normal 23-31 [facility] Comment on above: Performed By: #### L AB17, [id number] ####Cyber Systems Engineer: JAQUELIN MO ([id number])[facility] [place] (SBHLAB)[address] Creatinine [Mass/Vol] 5.70 mg/dL High 0.72-1.25 [facility] Comment on above: Performed By: #### L AB17, [id number] ####Cyber Systems Engineer: JAQUELIN MO ([id number])[facility]ITAL[facility] [place] (SBHLAB)[address] GLOMERULAR FILTRATION RATE ML/MIN/1.73 SQ M.PREDICTED 10.4 mL/min/1.73m*2 Low >60.0 [facility] Comment on above: Result Comment: Calc ulation based on the Chronic Kidney Disease Epidemiology Collaboration (CKD-EPI) equation refit without adjustment for race Performed By: #### L AB17, [id number] ####Cyber Systems Engineer: JAQUELIN MO ([id number])[facility] [place] (SBHLAB)[address] Glucose [Mass/Vol] 123 mg/dL High 82-115 [facility] Comment on above: Performed By: #### L AB17, [id number] ####Cyber Systems Engineer: JAQUELIN MO ([id number])[facility] (SBHLAB)[address] Potassium [Moles/Vol] 4.4 mmol/L Normal 3.5-5.1 [facility] Comment on above: Result Comment: [facility] potassium values may be up to 0.5 mmol/L lower than serum values. Performed By: #### L AB17, [id number] ####Cyber Systems Engineer: JAQUELIN MO ([id number])[facility] (SBHLAB)[address] Protein [Mass/Vol] 6.4 g/dL Normal 6.4-8.3 [facility] Comment on above: Performed By: #### L AB17, [id number] ####Cyber Systems Engineer: JAQUELIN MO ([id number])[facility] (SBHLAB)[address] Sodium [Moles/Vol] 140 mmol/L Normal 136-145 [facility] Comment on above: Performed By: #### L AB17, [id number] ####Cyber Systems Engineer: JAQUELIN MO ([id number])[facility] (SBHLAB)[address] Urea nitrogen [Mass/Vol] 56 mg/dL High 9-23 [facility] Comment on above: Performed By: #### L AB17, [id number] ####Cyber Systems Engineer: JAQUELIN MO ([id number])[facility] (SBHLAB)[address] Comprehensive metabolic 1998 panelon 11-26-2024 Albumin [Mass/Vol] 3 g/dL Low 3.4 - 4.8 g/dL [facility] ALP [Catalytic activity/Vol] 95 U/L 40 - 150 U/L [facility] ALT [Catalytic activity/Vol] 14 U/L [facility] - 40 U/L [facility] Anion gap [Moles/Vol] 11 mmol/L 3 - 13 mmol/L [facility] AST [Catalytic activity/Vol] 21 U/L NINF - 34 U/L [facility] Bilirubin [Mass/Vol] 0.4 mg/dL NINF - 1.2 mg/dL [facility] Calcium [Mass/Vol] 9 mg/dL 8.8 - 10. 0 mg/dL [facility] Chloride [Moles/Vol] 105 mmol/L 98 - 10 7 mmol/L [facility] CO2 [Moles/Vol] 24 mmol/L 23 - 31 mmol/L [facility] Creatinine [Mass/Vol] 5.7 mg/dL High 0.72 - 1.25 mg/dL [facility] GFR/1.73 sq M.predicted (S/P/Bld) [Vol rate/Area] 10.4 mL/min Low - PINF [facility] Comment on above: Calculation based on the Chronic Kidney Disease Epidemiology Collaboration (CKD-EPI) equation refit without adjustment for race Glucose [Mass/Vol] 123 mg/dL High 82 - 115 mg/dL [facility] Interpretation and review of laboratory results Abnormal [facility] Potassium [Moles/Vol] 4.4 mmol/L 3.5 - 5.1 mmol/L [facility] Comment on above: Plasma potassium reji ues may be up to 0.5 mmol/L lower than serum values. Protein [Mass/Vol] 6.4 g/dL 6.4 - 8.3 g/dL [facility] Sodium [Moles/Vol] 140 mmol/L 136 - 145 mmol/L [facility] Urea nitrogen [Mass/Vol] 56 mg/dL High 9 - 23 mg/dL [facility] Consulton 11-26-2024 Consult ------ -- Attestation signed by Tosha Barriga MD at 11/26/2024 9:51 PM I have reviewed the above assessment and plan with the CLASSIFIED ADVERTISING MANAGER. I agree with above note. HD tomorrow. Patient established with Dr Abiel Dudley outpatient. We cover his patients here. -- [facility] Consultation Note Reason for [...] hemodialysis. Patient follows with Dr. Dudley at [facility]. He receives HD at his facility M- [...] in contact with his dialysis nurse at [facility] and she confirmed his DW had recently [...] concerns regarding my recommendations as outlined above. [facility] Office [1] No family history on file. [2] Social History Socioeconomic History Marital status: Single Social Drivers of Health Financial Resource Strain: Medium Risk (05/24/2023) Received from [facility] Overall Financial Resource Strain (CARDIA) Difficulty of [...] Physical Activity: Insufficiently Active (12/28/2021) Received from [facility] Exercise Vital Sign Days of Exercise per Week: 7 days Minutes of Exercise p (more content not included)... [facility] Consult Department of Ethnoarchaeology Professor al Medicine Division of Endocrinology, Diabetes, & Metabolism Endocrinology Note Patient Name: José Manuel Ashton : 1960 AGE: 63 y.o. Room/Bed: Admission Date: 11/25/2024 Visit Date: 11/26/2024 Reason for Endocrine Consult: DM/Pt on U300 insulin Provider/Team Requesting Consult: Dr. Hills PCP: Brittaney Garcia MD Outpt [facility]: Yes [facility] ASSESSMENT: Type 2 diabetes mellitus with hyperglycemia, with jail insulin use PLAN: Start Lantus 10 units [...] medium dose sliding scale Outpt Follow Up-- [facility] Endocrinology SUBJECTIVE/HPI: CHIEF COMPLAINT: Chief Complaint Patient presents with Altered Mental Status Pt presents to ED via EMS from [facility] for responding slowly and indicates he is cold. José Manuel Ashton is a 63 yo male who presented to ED from [facility] Dialysis center with Tremor, chills and delayed [...] in bed Patient reports he resides at [facility] Patient not sure of insulin doses at [facility] - Does not give his own injections. Reports blood sugars are checked before meals but not sure what blood sugar levels are. Carb controlled diet Patient reports tremors, chills Feels unsteady on feet. PT was stopped at [facility] per patient. Glucose Date/Time Value Ref Range [...] for: VLDL (more content not included)... Normal [facility] HEMOGLOBIN A1Con 11-26-2024 Glucose [Mass/Vol] 111 mg/dL Normal [facility] Comment on above: Result Comment: FLAVIO Trejo [...] repeat testing. Performed By: #### L [id number] ####Cyber Systems Engineer: JAQUELIN MO ([id number])[facility] ([facility])[address] HEMOGLOBIN A1C 5.5 %HbA1C Normal <5.7 [facility] Comment on above: Result Comment: Norm al less than 5.7% Prediabetes 5.7% to 6.4% Diabetes 6.5% or higher --HgbA1C levels may not be accurate in patients who have renal disease, received recent blood transfusions, are anemic, or who have dyshemoglobinemia. Performed By: #### L AB90 ####Cyber Systems Engineer: JAQUELIN MO ([id number])[facility] ([facility])[address] [place] [address] Laboratory - Chemistry and C hemistry - challengeon 11-26-2024 Glucose [Mass/Vol] 180 mg/dL High 70 - 100 mg/dL [facility] Glucose [Mass/Vol] 206 mg/dL High 70 - 100 mg/dL [facility] Glucose [Mass/Vol] 174 mg/dL High 70 - 100 mg/dL [facility] Average glucose Estimated from glycated hemoglobin (Bld) [Mass/Vol] 111 mg/dL [facility] Procalcitonin [Mass/Vol] 0.3 ng/mL High NINF - 0.07 ng/mL [facility] Laboratory - Drug toxicology on 11-26-2024 Vancomycin trough [Mass/Vol] 19.8 ug/mL [facility] Laboratory - Hematology and Cell countson 11-26-2024 HbA1c (Bld) [Mass fraction] 5.5 % [facility] Comment on above: Normal less than 5.7 % Prediabetes 5.7% to 6.4% Diabetes 6.5% or higher --HgbA1C levels may not be accurate in patients who have renal disease, received recent blood transfusions, are anemic, or who have dyshemoglobinemia. No Panel Informationon 11-26 Interpretation and review of laboratory results Abnormal [facility] Performed by: Felicita Daly, [address] [place] [id number] CLIA ID: [id number] [facility] Interpretation and review of laboratory results Abnormal [facility] Performed by: Felicita Larsenn, [address] [place] [address] CLIA ID: [id number] [facility] Interpretation and review of laboratory results Abnormal [facility] Performed by: Felicita Garerton, [address] [place] [address] CLIA ID: [id number] [facility] HbA1c values of 5.7- 6.4 percent indicate an increased risk for developing diabetes mellitus. HbA1c values greater than or equal to 6.5 percent are diagnostic of diabetes mellitus. For diagnosis of diabetes in individuals without unequivocal hyperglycemia, results should be confirmed by repeat testing. [facility] PROCALCITONIN TESTon 025 PROCALCITONIN 0.30 ng/mL High <0.07 [facility] Comment on above: Result Comment: FLAVIO Trejo COMMENTS: PCT <0.50 = Low risk of severe sepsis and/or septic shock. PCT >2.00 = High risk of severe sepsis and/or septic shock. Performed By: #### L AB17, [id number] ####Cyber Systems Engineer: JAQUELIN MO ([id number])[facility] ([facility])[address] [place] [address] Procalcitonin [Mass/Vol]on 0 11-26-2024 Interpretation and review of laboratory results Abnormal [facility] PCT <0.50 = Low risk of severe sepsis and/or septic shock. PCT >2.00 = High risk of severe sepsis and/or septic shock. [facility] RESPIRATORY PATHOGENS PANEL BY PCRon 11-26-2024 RESPIRATORY [...] Detected ORDER COMMENTS: Methodology: Multiplex PCR Normal [facility] Comment on above: Performed By: #### L [id number] ####Cyber Systems Engineer: ESAU SKINNER ([id number])[facility] ([facility])[address] [place] [address] Respiratory pathogens DNA an d RNA panel BETO+non-probe (Nph)Ordered By: Betty Munguia on 11-26-2024 Adenovirus Not detected Not Detected [facility] B. pertussis DNA BETO+probe Ql (Unsp spec) Not detected Not Detected [facility] Bordetella parapertussis Not detected Not Detected [facility] Chlamydia pneumoniae Not detected Not Detected [facility] Coronavirus 229E Not detected Not Detected [facility] Coronavirus HKU1 Not detected Not Detected [facility] Coronavirus NL63 Not detected Not Detected [facility] Coronavirus OC43 Not detected Not Detected [facility] FLUAV RNA BETO+non-probe Ql (Nph) Not detected Not Detected [facility] FLUBV RNA BETO+non-probe Ql (Nph) Not detected Not Detected [facility] Human Metapneumovirus Not detected Not Detected [facility] Human Rhinovirus/Enteroviru s Not detected Not Detected [facility] Interpretation and review of laboratory results Normal [facility] Mycoplasma pneumoniae Not detected Not Detected [facility] Parainfluenza 1 Not detected Not Detected [facility] Parainfluenza 2 Not detected Not Detected [facility] Parainfluenza 3 Not detected Not Detected [facility] Parainfluenza 4 Not detected Not Detected [facility] Respiratory Syncytial Virus Not detected Not Detected [facility] SARS-CoV-2 (COVID-19) RNA BETO+non-probe Ql (Nph) Not detected Not Detected [facility] Methodology: Multiplex PCR [facility] VANCOMYCIN, AUC TIMED DOSING on 11-26-2024 VANCOMYCIN, AUC 19.8 ug/mL Normal [facility] Comment on above: Result Comment: ORDE R COMMENTS: Please draw random level at least >2 hours after the end of the last vancomycin infusion, or 30-minutes before next infusion. Toxicity is seen at concentrations >80-100 ug/mL Therapeutic (Peak) range: 20-40 Therapeutic (Trough) range: 5-10 Performed By: #### L AB39 #### Cyber Systems Engineer: JAQUELIN MO ([id number]) [facility] ([facility]) [address] Vancomycin trough [Mass/Vol] on 11-26-2024 Toxicity is seen at concentrations >80-100 ug/mL Therapeutic (Peak) range: 20-40 Therapeutic (Trough) range: 5-10 [facility] BLOOD CULTUREon 11-25-2024 Bacteria identified Cx Nom (Bld) BLOOD CULTURE Reference No growth at 5 days ORDER COMMENTS: Blood Collection Site: Right Hand [ S = SUSCEPTIBLE R = RESISTANT I = INTERMEDIATE S-DD = Susceptible-dose dependent NS = Non-susceptible NO = No Interpretation ] Normal [facility] Comment on above: Performed By: #### L [id number] ####Cyber Systems Engineer: ESAU SKINNER ([id number])[facility] ([facility])[address] [place] [address] Bacteria identified Cx Nom (Bld) BLOOD CULTURE Reference No growth at 5 days ORDER COMMENTS: Blood Collection Site: Left Hand [ S = SUSCEPTIBLE R = RESISTANT I = INTERMEDIATE S-DD = Susceptible-dose dependent NS = Non-susceptible NO = No Interpretation ] [facility] Comment on above: Performed By: #### L [id number] ####Cyber Systems Engineer: ESAU SKINNER ([id number])[facility] ([facility])[address] [place] [address] CBC W Auto Differential pane l (Bld)on 11-25-2024 Basophils (Bld) [#/Vol] 0 10*3/uL 0.0 - 0.2 10*3/uL [facility] Basophils/100 WBC (Bld) 0.1 % 0.0 - 2.0 % [facility] Eosinophils (Bld) [#/Vol] 0.1 10*3/uL 0.0 - 0.5 10*3/uL [facility] Eosinophils/100 WBC (Bld) 1.6 % 0.0 - 6.0 % [facility] Erythrocyte distribution width (RBC) [Ratio] 13 % 11.5 - 15.0 % [facility] Hematocrit (Bld) [Volume fraction] 28.8 % Low 40.0 - 52.0 % [facility] Hemoglobin (Bld) [Mass/Vol] 9.2 g/dL Low 13.0 - 18.0 g/dL [facility] Immature granulocytes (Bld) [#/Vol] 0.1 10*3/uL High NINF - 0.1 10*3/uL [facility] Immature granulocytes/100 WBC (Bld) 0.7 % 0.0 - 2.0 % [facility] Interpretation and review of laboratory results Abnormal [facility] Lymphocytes (Bld) [#/Vol] 1 10*3/uL 1.0 - 4.3 10*3/uL [facility] Lymphocytes/100 WBC (Bld) 15 % 15.0 - 45.0 % [facility] MCH (RBC) [Entitic mass] 29.2 pg 26.0 - 34.0 pg [facility] MCHC (RBC) [Mass/Vol] 31.9 % 30.5 - 36.0 % [facility] MCV (RBC) [Entitic vol] 91.4 fL 77.0 - 99.0 fL [facility] Monocytes (Bld) [#/Vol] 0.7 10*3/uL 0.0 - 0.9 10*3/uL [facility] Monocytes/100 WBC (Bld) 10.1 % 5.0 - 13.0 % [facility] Neutrophils (Bld) [#/Vol] 5 10*3/uL 1.8 - 7.5 10*3/uL [facility] Neutrophils/100 WBC (Bld) 72.5 % 38.0 - 82.0 % [facility] Nucleated RBC/100 WBC (Bld) [Ratio] 0 % [facility] Dining Secretary Platelet mean volume (Bld) [Entitic vol] 9.2 fL 9.0 - 12.7 fL [facility] Platelets (Bld) [#/Vol] 220 10*3/uL 140 - 440 10*3/uL [facility] RBC (Bld) [#/Vol] 3.15 10*6/uL Low 4.40 - 5.9 0 10*6/uL [facility] WBC (Bld) [#/Vol] 6.9 10*3/uL 3.6 - 10.7 10*3/uL [facility] CBC WITH AUTO DIFFERENTIALon 11-25-2024 Basophils (Bld) [#/Vol] 0.0 10*3/uL Normal 0.0-0.2 [facility] Comment on above: Performed By: #### L [id number] ####Cyber Systems Engineer: JAQUELIN MO ([id number])[facility] ([facility])[address] Basophils/100 WBC (Bld) 0.1 % Normal 0.0-2.0 [facility] Comment on above: Performed By: #### L [id number] ####Cyber Systems Engineer: JAQUELIN MO ([id number])[facility] ([facility])[address] [place] [address] Eosinophils (Bld) [#/Vol] 0.1 10*3/uL Normal 0.0-0.5 [facility] Comment on above: Performed By: #### L [id number] ####Cyber Systems Engineer: JAQUELIN MO ([id number])[facility])[address] [place] [address] Eosinophils/100 WBC (Bld) 1.6 % Normal 0.0-6.0 [facility] Comment on above: Performed By: #### L [id number] ####Cyber Systems Engineer: JAQUELIN MO ([id number])[facility] ([facility])[address] [place] [address] Erythrocyte distribution width (RBC) [Ratio] 13.0 % Normal 11.5-15.0 [facility] Comment on above: Performed By: #### L [id number] ####Cyber Systems Engineer: JAQUELIN MO ([id number])[facility])[address] [place] [address] Hematocrit (Bld) [Volume fraction] 28.8 % Low 40.0-52.0 [facility] Comment on above: Performed By: #### L [id number] ####Cyber Systems Engineer: JAQUELIN BROWNOliviaYOEL ([id number])[facility] ([facility])[address] Hemoglobin (Bld) [Mass/Vol] 9.2 g/dL Low 13.0-18.0 [facility] Comment on above: Performed By: #### L [id number] ####Cyber Systems Engineer: JAQUELIN RASCONYOEL ([id number])[facility] ([facility])[address] IMMATURE GRANS % 0.7 % Normal 0.0-2.0 [facility] Comment on above: Performed By: #### L [id number] ####Cyber Systems Engineer: JAQUELIN CHEPE ([id number])[facility] ([facility])[address] [place] [address] IMMATURE GRANS ABSOLUTE 0.1 10*3/uL High <0.1 [facility] Comment on above: Performed By: #### L [id number] ####Cyber Systems Engineer: JAQUELIN BROWNOliviaYOEL ([id number])[facility] ([facility])[address] [place] [address] Lymphocytes (Bld) [#/Vol] 1.0 10*3/uL Normal 1.0-4.3 [facility] Comment on above: Performed By: #### L [id number] ####Cyber Systems Engineer: JAQUELIN MO ([id number])[facility])[address] Lymphocytes/100 WBC (Bld) 15.0 % Normal 15.0-45.0 [facility] Comment on above: Performed By: #### L [id number] ####Cyber Systems Engineer: JAQUELIN MO ([id number])[facility])[address] [place] [address] MCH (RBC) [Entitic mass] 29.2 pg Normal 26.0-34.0 [facility] Comment on above: Performed By: #### L [id number] ####Cyber Systems Engineer: JAQUELIN RASCONYOEL ([id number])[facility] [place] ([facility])[address] MCHC 31.9 % Normal 30.5-36.0 [facility] Comment on above: Performed By: #### L [id number] ####Cyber Systems Engineer: JAQUELIN MO ([id number])[facility] [place] ([facility])[address] MCV (RBC) [Entitic vol] 91.4 fL Normal 77.0-99.0 [facility] Comment on above: Performed By: #### L [id number] ####Cyber Systems Engineer: JAQUELIN RASCONYOEL ([id number])[facility] [place] ([facility])[address] [place] [address] Monocytes (Bld) [#/Vol] 0.7 10*3/uL Normal 0.0-0.9 [facility] Comment on above: Performed By: #### L [id number] ####Cyber Systems Engineer: JAQUELIN RASCONYOEL ([id number])[facility] [place] ([facility])[address] Monocytes/100 WBC (Bld) 10.1 % Normal 5.0-13.0 [facility] Comment on above: Performed By: #### L [id number] ####Cyber Systems Engineer: JAQUELIN MO ([id number])[facility] [place] ([facility])[address] NEUTROPHILS ABSOLUTE 5.0 10*3/uL Normal 1.8-7.5 [facility] Comment on above: Performed By: #### L [id number] ####Cyber Systems Engineer: JAQUELIN MO ([id number])[facility] [place] ([facility])[address] Neutrophils/100 WBC (Bld) 72.5 % Normal 38.0-82.0 [facility] Comment on above: Performed By: #### L [id number] ####Cyber Systems Engineer: JAQUELIN MO ([id number])[facility]ITAL[facility] ([facility])[address] NRBC 0.0 /100 WBCs Normal 0.0-2.0 [facility] Comment on above: Performed By: #### L [id number] ####Cyber Systems Engineer: JAQUELIN BROWNBALAJI ([id number])[facility] ([facility])[address] Platelet mean volume (Bld) [Entitic vol] 9.2 fL Normal 9.0-12.7 [facility] Comment on above: Performed By: #### L [id number] ####Cyber Systems Engineer: JAQUELIN BROWNBALAJI ([id number])[facility] ([facility])[address] Platelets (Bld) [#/Vol] 220 10*3/uL Normal 140-440 [facility] Comment on above: Performed By: #### L [id number] ####Cyber Systems Engineer: JAQUELIN RASCONYOEL ([id number])[facility]ITAL[facility] ([facility])[address] RBC (Bld) [#/Vol] 3.15 10*6/uL Low 4.40-5.90 [facility] Comment on above: Performed By: #### L [id number] ####Cyber Systems Engineer: JAQUELIN MO ([id number])[facility] ([facility])[address] WBC (Bld) [#/Vol] 6.9 10*3/uL Normal 3.6-10.7 [facility] Comment on above: Performed By: #### L [id number] ####Cyber Systems Engineer: JAQUELIN MO ([id number])[facility] ([facility])[address] COMPREHENSIVE METABOLIC PANE Tommie 11-25-2024 Albumin [Mass/Vol] 3.2 g/dL Low 3.4-4.8 [facility] Comment on above: Performed By: #### L AB17, [id number] ####Cyber Systems Engineer: JAQUELIN MO ([id number])[facility] ([facility])[address] ALP [Catalytic activity/Vol] 100 U/L Normal 40-150 [facility] Comment on above: Performed By: #### L AB17, [id number] ####Cyber Systems Engineer: JAQUELIN MO ([id number])[facility] [place] ([facility])[address] ALT [Catalytic activity/Vol] 17 U/L Normal <40 [facility] Comment on above: Performed By: #### L AB17, [id number] ####Cyber Systems Engineer: JAQUELIN MO ([id number])[facility] ([facility])[address] Anion gap [Moles/Vol] 15 mmol/L High 3-13 [facility] Comment on above: Performed By: #### L AB17, [id number] ####Cyber Systems Engineer: JAQUELIN MO ([id number])[facility] [place] ([facility])[address] AST [Catalytic activity/Vol] 19 U/L Normal <34 [facility] Comment on above: Performed By: #### L AB17, [id number] ####Cyber Systems Engineer: JAQUELIN MO ([id number])[facility] [place] ([facility])[address] Bilirubin [Mass/Vol] 0.5 mg/dL Normal <1.2 [facility] Comment on above: Performed By: #### L AB17, [id number] ####Cyber Systems Engineer: JAQUELIN MO ([id number])[facility] [place] ([facility])[address] Calcium [Mass/Vol] 9.1 mg/dL Normal 8.8-10.0 [facility] Comment on above: Performed By: #### L AB17, [id number] ####Cyber Systems Engineer: JAQUELIN MO ([id number])[facility] ([facility])[address] [place] [address] [place] Chloride [Moles/Vol] 99 mmol/L Normal 98-107 [facility] Comment on above: Performed By: #### L AB17, [id number] ####Cyber Systems Engineer: JAQUELIN MO ([id number])[facility] [place] ([facility])[address] [place] [address] [place] CO2 [Moles/Vol] 25 mmol/L Normal 23-31 [facility] Comment on above: Performed By: #### L AB17, [id number] ####Cyber Systems Engineer: JAQUELIN MO ([id number])[facility] [place] ([facility])[address] Creatinine [Mass/Vol] 5.14 mg/dL High 0.72-1.25 [facility] Comment on above: Performed By: #### L AB17, [id number] ####Cyber Systems Engineer: JAQUELIN MO ([id number])[facility] ([facility])[address] [place] [address] [place] GLOMERULAR FILTRATION RATE ML/MIN/1.73 SQ M.PREDICTED 11.8 mL/min/1.73m*2 Low >60.0 [facility] Comment on above: Result Comment: Calc ulation based on the Chronic Kidney Disease Epidemiology Collaboration (CKD-EPI) equation refit without adjustment for race Performed By: #### L AB17, [id number] ####Cyber Systems Engineer: JAQUELIN MO ([id number])[facility] [place] ([facility])[address] [place] [address] [place] Glucose [Mass/Vol] 178 mg/dL High 82-115 [facility] Comment on above: Performed By: #### L AB17, [id number] ####Cyber Systems Engineer: JAQUELIN MO ([id number])[facility] [place] ([facility])[address] [place] [address] [place] Potassium [Moles/Vol] 4.4 mmol/L Normal 3.5-5.1 [facility] Comment on above: Result Comment: [facility] potassium values may be up to 0.5 mmol/L lower than serum values. Performed By: #### L AB17, [id number] ####Cyber Systems Engineer: JAQUELIN MO ([id number])[facility] ([facility])[address] Protein [Mass/Vol] 6.9 g/dL Normal 6.4-8.3 [facility] Comment on above: Performed By: #### L AB17, [id number] ####Cyber Systems Engineer: JAQUELIN MO ([id number])[facility] ([facility])[address] Sodium [Moles/Vol] 139 mmol/L Normal 136-145 [facility] Comment on above: Performed By: #### L AB17, [id number] ####Cyber Systems Engineer: JAQUELIN MO ([id number])[facility] ([facility])[address] Urea nitrogen [Mass/Vol] 49 mg/dL High 9-23 [facility] Comment on above: Performed By: #### L AB17, [id number] ####Cyber Systems Engineer: JAQUELIN MO ([id number])[facility] ([facility])[address] [place] [address] COVID-19, Flu A/B, and RSV C omboon 11-25-2024 Interpretation and review of laboratory results Normal [facility] Comprehensive metabolic 1998 panelon 11-25-2024 Albumin [Mass/Vol] 3.2 g/dL Low 3.4 - 4.8 g/dL [facility] ALP [Catalytic activity/Vol] 100 U/L 40 - 150 U/L [facility] ALT [Catalytic activity/Vol] 17 U/L NINF - 40 U/L [facility] Anion gap [Moles/Vol] 15 mmol/L High 3 - 13 mmol/L [facility] AST [Catalytic activity/Vol] 19 U/L NINF - 34 U/L [facility] Bilirubin [Mass/Vol] 0.5 mg/dL NINF - 1.2 mg/dL [facility] Calcium [Mass/Vol] 9.1 mg/dL 8.8 - 10. 0 mg/dL [facility] [employer] Chloride [Moles/Vol] 99 mmol/L 98 - 10 7 mmol/L [facility] [employer] CO2 [Moles/Vol] 25 mmol/L 23 - 31 mmol/L [facility] Creatinine [Mass/Vol] 5.14 mg/dL High 0.72 - 1.25 mg/dL [facility] GFR/1.73 sq M.predicted (S/P/Bld) [Vol rate/Area] 11.8 mL/min Low - PINF [facility] Comment on above: Calculation based on the Chronic Kidney Disease Epidemiology Collaboration (CKD-EPI) equation refit without adjustment for race Glucose [Mass/Vol] 178 mg/dL High 82 - 115 mg/dL [facility] Interpretation and review of laboratory results Abnormal [facility] Potassium [Moles/Vol] 4.4 mmol/L 3.5 - 5.1 mmol/L [facility] Comment on above: Plasma potassium reji ues may be up to 0.5 mmol/L lower than serum values. Protein [Mass/Vol] 6.9 g/dL 6.4 - 8.3 g/dL [facility] Sodium [Moles/Vol] 139 mmol/L 136 - 145 mmol/L [facility] Urea nitrogen [Mass/Vol] 49 mg/dL High 9 - 23 mg/dL [facility] Consulton 11-25-2024 Consult Pharmacy Managed Vancomycin Dosing [...] [x] CrCl 22.9 ml/min (if TARYN, no [employer]) Consulted By: Dr. Adames Vancomycin Level: []Trough [...] Time: 2:57 PM Thea BakerD (available on [employer]) [facility] ECG 12-LEADon 11-25-2024 ECG 12-LEAD [...] On 11-25-2024 14:52:25 EDT by Omid Adames [facility] ED Nursing Noteon 11-25-2024 ED Nursing Note Pt refused pain meds , not my dose at long term per pt [facility] ED Nursing Note Pt received dialysis today [facility] ED Provider Noteon ED Provider Note EMERGENCY DEPARTMENT ENCOUNTER Pt Name: José Manuel Ashton Birthdate 1960 Date of evaluation: 11/25/2024 ED Provider: Omid Adames MD CHIEF COMPLAINT Chief Complaint Patient presents with Altered Mental Status Pt presents to ED via EMS from [facility] for responding slowly and indicates he is [...] 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 There is no acute ST elevation or ST depression however. Intervals are within normal limits otherwise. There is no old EKG available for comparison. EKG was reviewed by myself. Physician EKG interpretation can be found in [facility] (Per Emergency Physician): Chest x-ray interpreted by me shows no obvious evid (more content not included)... Normal [facility] LACTIC ACID WITH REFLEXon Lactate [Moles/Vol] 0.7 mmol/L Normal 0.5-2.2 [facility] Comment on above: Performed By: #### L [id number] ####Cyber Systems Engineer: JAQUELIN MO ([id number])[facility] ([facility])[address] [place] [address] Lactate [Moles/Vol] 3.5 mmol/L High 0.5-2.2 [facility] Comment on above: Performed By: #### L [id number] ####Cyber Systems Engineer: JAQUELIN MO ([id number])[facility] [place] [address] Laboratory - Chemistry and C hemistry - challengeon 11-25-2024 Glucose [Mass/Vol] 187 mg/dL High 70 - 100 mg/dL [facility] Glucose [Mass/Vol] 167 mg/dL High 70 - 100 mg/dL [facility] Glucose [Mass/Vol] 119 mg/dL High 70 - 100 mg/dL [facility] Lactate [Moles/Vol] 0.7 mmol/L 0.5 - 2. 2 mmol/L [facility] Lactate [Moles/Vol] 3.5 mmol/L High 0.5 - 2. 2 mmol/L [facility] Magnesium [Mass/Vol] 2 mg/dL 1.6 - 2 .6 mg/dL [facility] Laboratory - Microbiology an d Antimicrobial susceptibilityon 11-25-2024 FLUAV RNA BETO+probe Ql (Resp) Not detected Not Detected [facility] FLUBV RNA BETO+probe Ql (Resp) Not detected Not Detected [facility] RSV RNA BETO+probe Ql (Resp) Not detected Not Detected [facility] SARS-CoV-2 (COVID-19) RNA BETO+probe Ql (Resp) Not detected Not Detected [facility] SARS-CoV-2 (COVID-19) RNA BETO+probe Ql (Unsp spec) Methodology: real-time, RT-PCR The SARS-CoV-2, Flu A/B, and RSV Combo assay is intended for in vitro diagnostic use under the FDA Emergency Use Authorization (EUA). This test has not been FDA cleared or approved. In compliance with this authorization, please visit www.fda.gov/media/868158/d ownload or www.fda.gov/media/395439/d ownload to access the applicable information sheets. [facility] MAGNESIUMon 11-25-2024 Magnesium [Mass/Vol] 2.0 mg/dL Normal 1.6-2.6 [facility] Comment on above: Result Comment: FLAVIO Trejo COMMENTS: Higher values can be expected in females during menses. Performed By: #### L AB17, [id number] ####Cyber Systems Engineer: JAQUELIN MO ([id number])[facility] [place] [address] Magnesium [Mass/Vol]on 11-25 Interpretation and review of laboratory results Normal [facility] Higher values can be expected in females during menses. [facility] No Panel Informationon 11-25 Interpretation and review of laboratory results Abnormal [facility] Performed by: Heatherantonette Daly [address] [place] [address] CLIA ID: [id number] [facility] Interpretation and review of laboratory results Abnormal [facility] Performed by: [facility] [address] [place] [address] CLIA ID: [id number] [facility] Interpretation and review of laboratory results Abnormal [facility] Performed by: [facility] D[facility] [address] [place] [address] CLIA ID: [id number] [facility] Interpretation and review of laboratory results Normal [facility] P [place] 23 degrees [facility] MT Interval 167 ms [facility] QRS [place] 49 degrees [facility] QRSD Interval 110 ms [facility] QT Interval 405 ms [facility] QTC Interval 468 ms [facility] T Wave [place] 62 degrees [facility] Sinus rhythm Low voltage, extremity leads EKG [...] On 11-25-2024 14:52:25 EDT by Omid Adames [facility] Interpretation and review of laboratory results Abnormal [facility] SARS-COV-2, FLU A/B, AND RSV COMBOon 11-25-2024 [...] In compliance with this authorization, please visit www.fda.gov/media/132856/d ownload or www.fda.gov/media/235268/d ownload to access the applicable information sheets. Normal [facility] Comment on above: Performed By: #### L [id number] ####Cyber Systems Engineer: JAQUELIN MO ([id number])[facility] ([facility])[address] [place] [address] Vital signson 11-25-2024 Heart rate 80 /min bpm [facility] XR Chest Single viewon 11-25 No focal consolidati on or pulmonary edema. Report Dictated on Electronically Signed By: Kj Duran MD Electronically Signed Date/Time: 11/25/2024 12:40 PM EDT [facility] Patient Name: JOSÉ MANUEL YOON [...] are normal. The osseous structures are unremarkable. [facility] Kj Duran MD - 11/25/2024 [...] Electronically Signed Date/Time: 11/25/2024 12:40 PM EDT [facility] Radiology Study observation (narrative) [facility] XR Chest Single viewOrdered By: Kj Duran on 11-25-2024 [facility] Dining Secretary Work Phone: Renal Profileon 10-14-2024 Albumin [Mass/Vol] 4.0 g/dL Normal 3.4-4.8 [facility] Comment on above: Order Comment: 409.1 Performed By: #### L [id number] #### [facility] [address] [place], [address] BUN/CRE 11.5 RATIO Normal 10-20 [facility] Comment on above: Order Comment: 409.1 Performed By: #### L [id number] #### [facility] [address] [place], [address] Calcium [Mass/Vol] 9.5 mg/dL Normal 7.6-11.0 [facility] Comment on above: Order Comment: 409.1 Performed By: #### L 500.3600 #### [facility] [address] [place], [address] Chloride [Moles/Vol] 101 mmol/L Normal 98-108 [facility] Comment on above: Order Comment: 409.1 Performed By: #### L 500.3600 #### [facility] [address] [place], [address] CO2 [Moles/Vol] 23.8 mmol/L Normal 21.0-32.0 [facility] Comment on above: Order Comment: 409.1 Performed By: #### L 500.3600 #### [facility] [address] [place], [address] Creatinine [Mass/Vol] 6.18 mg/dL High 0.70-1.20 [facility] Comment on above: Order Comment: 409.1 Performed By: #### L 500.3600 #### [facility] [address] [place], [address] GAP 17 High 5-15 [facility] Comment on above: Order Comment: 409.1 Performed By: #### L 500.3600 #### [facility] [address] [place], [address] GFR/1.73 sq M.predicted among non-blacks MDRD (S/P/Bld) [Vol rate/Area] 9 mL/min/{1.73_m2} Low >60 [facility] Comment on above: Order Comment: 409.1 Result Comment: mL/m in/1.73m2 CKD-EPI Creatinine Equation (2020) Performed By: #### L 500.3600 #### [facility] [address] [place], [address] Glucose [Mass/Vol] 140 mg/dL High 70-99 [facility] Comment on above: Order Comment: 409.1 Performed By: #### L 500.3600 #### [facility] [address] [place], [address] Phosphate [Mass/Vol] 4.9 mg/dL High 2.7-4.5 [facility] Comment on above: Order Comment: 409.1 Performed By: #### L 500.3600 #### [facility] [address] [place], [address] Potassium [Moles/Vol] 5.2 mmol/L High 3.3-5.1 [facility] Comment on above: Order Comment: 409.1 Performed By: #### L 500.3600 #### [facility] [address] [place], [address] Sodium [Moles/Vol] 142 mmol/L Normal 133-145 [facility] Comment on above: Order Comment: 409.1 Performed By: #### L 500.3600 #### [facility] [address] [place], [address] Urea nitrogen [Mass/Vol] 71 mg/dL High 4-19 [facility] Comment on above: Order Comment: 409.1 Performed By: #### L 500.3600 #### [facility] [address] [place], [address] Hemoglobin A1con 10-07-2024 HbA1c (Bld) [Mass fraction] 5.2 % Normal <=5.6 [facility] Comment on above: Order Comment: 409.1 Result Comment: Norm al < 5.7 % Prediabetic 5.7 - 6.4 % Diabetic >or= 6.5 % Please note range changes. Performed By: #### L 501.9985 #### [facility] [address] [place], [address] Anion gap in Serum or Plasma Ordered By: Brittaney Garcia on 08-28-2024 Anion gap [Moles/Vol] 16 mmol/L High 5-15 [facility] BUN/creatinine ratioOrdered By: Brittaney Garcia on 08-28-2024 Urea nitrogen/Creatinine [Mass ratio] 10.1 mg/mg 10- [facility] Basic Metabolic Profile (BMP )on 08-28-2024 BUN/CRE 10.1 RATIO Normal - [facility] Comment on above: Order Comment: 413-1 Performed By: #### L 500.2500, L100.0500 #### [facility] [address] [place], [address] Calcium [Mass/Vol] 9.3 mg/dL Normal 7.6-11.0 [facility] Comment on above: Order Comment: 413-1 Performed By: #### L 500.2500, L100.0500 #### [facility] [address] [place], [address] Chloride [Moles/Vol] 100 mmol/L Normal 98-108 [facility] Comment on above: Order Comment: 413-1 Performed By: #### L 500.2500, L100.0500 #### [facility] [address] [place], [address] CO2 [Moles/Vol] 24.3 mmol/L Normal 21.0-32.0 [facility] Comment on above: Order Comment: 413-1 Performed By: #### L 500.2500, L100.0500 #### [facility] [address] [place], [address] Creatinine [Mass/Vol] 5.39 mg/dL High 0.70-1.20 [facility] Comment on above: Order Comment: 413-1 Performed By: #### L 500.2500, L100.0500 #### [facility] [address] [place], [address] GAP 16 High 5-15 [facility] Comment on above: Order Comment: 413-1 Performed By: #### L 500.2500, L100.0500 #### [facility] [address] [place], [address] GFR/1.73 sq M.predicted among non-blacks MDRD (S/P/Bld) [Vol rate/Area] 11 mL/min/{1.73_m2} Low >60 [facility] Comment on above: Order Comment: 413-1 Result Comment: mL/m in/1.73m2 CKD-EPI Creatinine Equation (2020) Performed By: #### L 500.2500, L100.0500 #### [facility] [address] [place], [address] Glucose [Mass/Vol] 155 mg/dL High 70-99 [facility] Comment on above: Order Comment: 413-1 Performed By: #### L 500.2500, L100.0500 #### [facility] [address] [place], [address] Potassium [Moles/Vol] 4.6 mmol/L Normal 3.3-5.1 [facility] Comment on above: Order Comment: 413-1 Performed By: #### L 500.2500, L100.0500 #### [facility] [address] [place], [address] Sodium [Moles/Vol] 140 mmol/L Normal 133-145 [facility] Comment on above: Order Comment: 413-1 Performed By: #### L 500.2500, L100.0500 #### [facility] [address] [place], [address] Urea nitrogen [Mass/Vol] 54 mg/dL High 4-19 [facility] Comment on above: Order Comment: 413-1 Performed By: #### L 500.2500, L100.0500 #### [facility] [address] [place], [address] CBC-Complete Blood Cnt No Di ffon 08-28-2024 Erythrocyte distribution width (RBC) [Ratio] 14.4 % Normal 11.6-14.6 [facility] Comment on above: Order Comment: 413-1 Performed By: #### L 500.2500, L100.0500 #### [facility] [address] [place], [address] Hematocrit (Bld) [Volume fraction] 28.0 % Low 40-54 [facility] Comment on above: Order Comment: 413-1 Performed By: #### L 500.2500, L100.0500 #### [facility] [address] [place], [address] Hemoglobin (Bld) [Mass/Vol] 8.9 g/dL Low 13.0-16.5 [facility] Comment on above: Order Comment: 413-1 Performed By: #### L 500.2500, L100.0500 #### [facility] [address] [place], [address] MCH (RBC) [Entitic mass] 29.5 pg Normal 27.0-32.0 [facility] Comment on above: Order Comment: 413-1 Performed By: #### L 500.2500, L100.0500 #### [facility] [address] [place], [address] MCHC (RBC) [Mass/Vol] 31.8 g/dL Low 32-36 [facility] Comment on above: Order Comment: 413-1 Performed By: #### L 500.2500, L100.0500 #### [facility] [address] [place], [address] MCV (RBC) [Entitic vol] 92.7 fL Normal 80-94 [facility] Comment on above: Order Comment: 413-1 Performed By: #### L 500.2500, L100.0500 #### [facility] [address] [place], [address] Platelet mean volume (Bld) [Entitic vol] 9.4 fL Normal 6.2-12.0 [facility] Comment on above: Order Comment: 413-1 Performed By: #### L 500.2500, L100.0500 #### [facility] [address] [place], [address] Platelets (Bld) [#/Vol] 263 10*3/uL Normal 150-450 [facility] Comment on above: Order Comment: 413-1 Performed By: #### L 500.2500, L100.0500 #### [facility] [address] [place], [address] RBC (Bld) [#/Vol] 3.02 10*6/uL Low 4.6-6.2 [facility] Comment on above: Order Comment: 413-1 Performed By: #### L 500.2500, L100.0500 #### [facility] [address] [place], [address] RDW SD 49.1 fl High 35.1-43.9 [facility] Comment on above: Order Comment: 413-1 Performed By: #### L 500.2500, L100.0500 #### [facility] [address] [place], [address] WBC (Bld) [#/Vol] 6.7 10*3/uL Normal 4.4-11.0 [facility] Comment on above: Order Comment: 413-1 Performed By: #### L 500.2500, L100.0500 #### [facility] [address] [place], [address] Carbon dioxide, total [Moles /volume] in Central venous bloodOrdered By: Brittaney Garcia on 08-28-2024 CO2 [Moles/Vol] 24.3 mmol/L 21.0-32.0 [facility] Chloride assayOrdered By: Lambert Garcia on 08-28-2024 Chloride [Moles/Vol] 100 mmol/L 98-108 [facility] Erythrocyte distribution wid th ratioOrdered By: Brittaney Garcia on 08-28-2024 Erythrocyte distribution width (RBC) [Ratio] 14.4 % 11.6-14.6 [facility] Erythrocyte distribution wid th standard deviationOrdered By: Brittaney Garcia on 08-28-2024 Erythrocyte distribution width (RBC) [Ratio] 49.1 fl High 35.1-43.9 [facility] Glomerular filtration rate ( GFR) estimation/1.73 sq m using serum, plasma, or whole bOrdered By: Brittaney Garcia on 08-28-2024 GFR/1.73 sq M.predicted among non-blacks MDRD (S/P/Bld) [Vol rate/Area] 11 mL/min/{1.73_m2} Low >60 [facility] Comment on above: mL/min/1.73m2 CKD-EP I Creatinine Equation (2020) Hematocrit Auto (Bld) [Volum e fraction]Ordered By: Brittaney Garcia on 08-28-2024 Hematocrit (Bld) [Volume fraction] 28.0 % Low 40-54 [facility] Hemoglobin measurementOrdere d By: Brittaney Garcia on 08-28-2024 Hemoglobin (Bld) [Mass/Vol] 8.9 g/dL Low 13.0-16.5 [facility] MCV (mean corpuscular volume ) determinationOrdered By: Brittaney Garcia on 08-28-2024 MCV (RBC) [Entitic vol] 92.7 fL 80-94 [facility] Mean corpuscular hemoglobin (MCH) determinationOrdered By: Brittaney Garcia on 08-28-2024 MCH (RBC) [Entitic mass] 29.5 pg 27.0-32.0 [facility] Mean corpuscular hemoglobin concentration (MCHC) determinationOrdered By: Brittaney Garcia on 08-28-2024 MCHC (RBC) [Mass/Vol] 31.8 g/dL Low 32-36 [facility] Mean platelet volume determi nationOrdered By: Brittaney Garcia on 08-28-2024 Platelet mean volume (Bld) [Entitic vol] 9.4 fL 6.2-12.0 [facility] Platelet countOrdered By: Lambert Garcia on 08-28-2024 Platelets (Bld) [#/Vol] 263 10*3/uL 150-450 [facility] Potassium measurement (mass/ volume)Ordered By: Brittaney Garcia on 08-28-2024 Potassium (Unsp spec) [Mass/Vol] 4.6 mmol/L 3.3-5.1 [facility] RBC Auto (Bld) [#/Vol]Ordere d By: Brittaney Garcia on 08-28-2024 RBC (Bld) [#/Vol] 3.02 10*6/uL Low 4.6-6.2 [facility] Serum creatinine measurement (mass/volume)Ordered By: Brittaney Garcia on 08-28-2024 Creatinine [Mass/Vol] 5.39 mg/dL High 0.70-1.20 [facility] Serum glucose measurement (m ass/volume)Ordered By: Brittaney Garcia on 08-28-2024 Glucose [Mass/Vol] 155 mg/dL High 70-99 [facility] Serum or plasma calcium patt urement (mass/volume)Ordered By: Brittaney Garcia on 08-28-2024 Calcium [Mass/Vol] 9.3 mg/dL 7.6-11.0 [facility] Serum or plasma urea nitroge n measurement (mass/volume)Ordered By: Brittaney Garcia on 08-28-2024 Urea nitrogen [Mass/Vol] 54 mg/dL High 4-19 [facility] Sodium levelOrdered By: Jd Garcia on 08-28-2024 Sodium [Moles/Vol] 140 mmol/L 133-145 [facility] White blood cell (WBC) count Ordered By: Brittaney Garcia on 08-28-2024 WBC (Bld) [#/Vol] 6.7 10*3/uL 4.4-11.0 [facility]NA[facility]EMon 07-24-2024 CASE MANAGEM [facility] CASE MANAGEM [facility] CASE MANAGEM [facility] CBC panel Auto (Bld)on 07-24 Erythrocyte distribution width (RBC) [Ratio] 13.2 % Normal 11.5-15.0 [facility] Comment on above: Order Comment: Speci men Type: BLOOD SPECIMENOrdering Facility: [facility] Address: [address] [place] [address] Performed By: #### 5 8410-2 ####[facility]ATORYCLIA [id number] [address] Hematocrit (Bld) [Volume fraction] 26.9 % Low 39.0-51.0 [facility] Comment on above: Order Comment: Speci men Type: BLOOD SPECIMENOrdering Facility: [facility] Address: [address] [place] [address] Performed By: #### 5 8410-2 ####[facility] LABORATORYCLIA [id number] [address] [place] Hemoglobin (Bld) [Mass/Vol] 8.8 g/dL Low 13.0-17.0 [facility] Comment on above: Order Comment: Speci men Type: BLOOD SPECIMENOrdering Facility: [facility] Address: [address] [place] [address] Performed By: #### 5 8410-2 ####[facility] LABORATORYCLIA [id number] [place] [address] [place] MCH (RBC) [Entitic mass] 28.5 pg Normal 26.0-34.0 [facility] Comment on above: Order Comment: Speci men Type: BLOOD SPECIMENOrdering Facility: [facility] Address: [address] [place] [address] Performed By: #### 5 8410-2 ####[facility] LABORATORYCLIA [id number] [address] [place] MCHC (RBC) [Mass/Vol] 32.7 g/dL Normal 30.5-36.0 [facility] Comment on above: Order Comment: Speci men Type: BLOOD SPECIMENOrdering Facility: [facility] Address: [address] [place] [address] Performed By: #### 5 8410-2 ####[facility] LABORATORYCLIA [id number] [place] [address] [place] MCV (RBC) [Entitic vol] 87.1 fL Normal 80.0-100.0 [facility] Comment on above: Order Comment: Speci men Type: BLOOD SPECIMENOrdering Facility: [facility] Address: [address] [place] [address] Performed By: #### 5 8410-2 ####[facility] LABORATORYCLIA [id number] [place] [address] [place] Nucleated RBC (Bld) [#/Vol] 10*3/uL Normal <0.01 [facility] Comment on above: Order Comment: Speci men Type: BLOOD SPECIMENOrdering Facility: [facility] Address: [address] [place] [address] Performed By: #### 5 8410-2 ####[facility] LABORATORYCLIA [id number] [place] [address] [place] Platelet mean volume (Bld) [Entitic vol] 9.2 fL Normal 9.0-12.7 [facility] Comment on above: Order Comment: Speci men Type: BLOOD SPECIMENOrdering Facility: [facility] Address: [address] [place] [address] Performed By: #### 5 8410-2 ####[facility] LABORATORYCLIA [id number] [place] [address] [place] Platelets (Bld) [#/Vol] 168 10*3/uL Normal 150-400 [facility] Comment on above: Order Comment: Speci men Type: BLOOD SPECIMENOrdering Facility: [facility] Address: [address] [place] [address] Performed By: #### 5 8410-2 ####[facility] LABORATORYCLIA [id number] [place] [address] [place] RBC (Bld) [#/Vol] 3.09 10*6/uL Low 4.20-6.00 [facility] Comment on above: Order Comment: Speci men Type: BLOOD SPECIMENOrdering Facility: [facility] Address: [address] [id number] Performed By: #### 5 8410-2 ####[facility] LABORATORYCLIA [id number] [place] [address] [place] WBC (Bld) [#/Vol] 6.64 10*3/uL Normal 3.70-11.00 [facility] Comment on above: Order Comment: Speci men Type: BLOOD SPECIMENOrdering Facility: [facility] Address: [address] [place] [address] Performed By: #### 5 8410-2 ####[facility] LABORATORYCLIA [id number] [address] [facility] CNDSon 07-24-2024 CNDS Normal [facility] 07-24-2024 CNPN Telephone (HCSIND) -- JOSÉ MANUEL ASHTON ([id number]) 1960 M T Date Time Provider Department [...] 01/17/2022 H/O (more content not included)... Normal [facility] CONSULT PROGon 07-24-2024 CONSULT PROG [facility] Comprehensive metabolic 2000 panelon 07-24-2024 Albumin [Mass/Vol] 3.2 g/dL Low 3.9-4.9 [facility] Comment on above: Order Comment: Speci men Type: BLOOD SPECIMENOrdering Facility: [facility] Address: [address] [place] [address] Performed By: #### 5 0190-8, 2275-07, ####[facility] LABORATORYCLIA [id number] [place] [address] [place] ALP [Catalytic activity/Vol] 107 U/L Normal 38-113 [facility] Comment on above: Order Comment: Speci men Type: BLOOD SPECIMENOrdering Facility: [facility] Address: [facility] [place] [id number] Performed By: #### 5 0190-8, 2275-, 65740-8 ####[facility] LABORATORYCLIA [id number] [place] [id number] [place] ALT [Catalytic activity/Vol] 17 U/L Normal 10-54 [facility] Comment on above: Order Comment: Speci men Type: BLOOD SPECIMENOrdering Facility: [facility] Address: [address] [id number] Performed By: #### 5 0190-8, 2275-4, 19226-4 ####ADK[facility] LABORATORYCLIA [id number] [place] [address] [place] Anion gap [Moles/Vol] 13 mmol/L Normal 8-15 [facility] Comment on above: Order Comment: Speci men Type: BLOOD SPECIMENOrdering Facility: [facility] Address: [address] [place] [address] Performed By: #### 5 0190-8, 2275-07, 60273-4 ####[facility] LABORATORYCLIA [id number] [address] [place] AST [Catalytic activity/Vol] 16 U/L Normal 14-40 [facility] Comment on above: Order Comment: Speci men Type: BLOOD SPECIMENOrdering Facility: [facility] Address: [address] [place] [address] Performed By: #### 5 0190-8, 2275-07, 74415-5 ####[facility] LABORATORYCLIA [id number] [address] [place] Bilirubin [Mass/Vol] 0.2 mg/dL Normal 0.2-1.3 [facility] Comment on above: Order Comment: Speci men Type: BLOOD SPECIMENOrdering Facility: [facility] Address: [address] [place] [address] Performed By: #### 5 0190-8, 4, 44907-9 ####[facility] LABORATORYCLIA [id number] [address] [place] Calcium [Mass/Vol] 8.7 mg/dL Normal 8.5-10.2 [facility] Comment on above: Order Comment: Speci men Type: BLOOD SPECIMENOrdering Facility: [facility] Address: [address] [place] [address] Performed By: #### 5 0190-8, 6-4, 22430-5 ####[facility] LABORATORYCLIA [id number] [place] [address] [place] Chloride [Moles/Vol] 99 mmol/L Normal 98-107 [facility] Comment on above: Order Comment: Luz vaughan Type: BLOOD SPECIMENOrdering Facility: [facility] Address: [address] [place] [address] Performed By: #### 5 0190-8, 6-4, 04024-5 ####SHANNON LABORATORYCLIA [id number] [place] [address] [place] CO2 [Moles/Vol] 26 mmol/L Normal 22-30 [facility] Comment on above: Order Comment: Luz vaughan Type: BLOOD SPECIMENOrdering Facility: [facility] Address: [address] [place] [address] Performed By: #### 5 0190-8, 2275-4, 02703-4 ####SHANNON LABORATORYCLIA [id number] [place] [address] [place] Creatinine [Mass/Vol] 4.85 mg/dL High 0.73-1.22 [facility] Comment on above: Order Comment: Luz vaughan Type: BLOOD SPECIMENOrdering Facility: [facility] Address: [address] [place] [address] Performed By: #### 5 0190-8, 2275-4, 45748-3 ####SHANNON LABORATORYCLIA [id number] [address] [facility] Creatinine and Glomerular filtration rate.predicted panel (S/P/Bld) 13 mL/min/1.73m??? Low >=60 [facility] Comment on above: Order Comment: Luz vaughan Type: BLOOD SPECIMENOrdering Facility: [facility] Address: [address] [place] [address] Result Comment: Breanne mated Glomerular Filtration Rate [...] GFR. Performed By: #### 5 0190-8, 6-4, 42268-4 ####SHANNON LABORATORYCLIA [id number] [place] [address] [place] Glucose [Mass/Vol] 153 mg/dL High 74-99 [facility] Comment on above: Order Comment: Luz vaughan Type: BLOOD SPECIMENOrdering Facility: [facility] Address: [address] [place] [address] Result Comment: The [place] [employer] (ADA) provides guidance for cutoff [...] Standards of Medical Care in Diabetes 2016, [place] [employer]. Diabetes Care. 2016.39(Suppl 1). Performed By: #### 5 0190-8, 2275-, 44562-6 ####SHANNON LABORATORYCLIA [id number] [place] [address] [place] Potassium [Moles/Vol] 4.7 mmol/L Normal 3.7-5.1 [facility] Comment on above: Order Comment: Luz vaughan Type: BLOOD SPECIMENOrdering Facility: [facility] Address: [address] [place] [address] Performed By: #### 5 0190-8, 6-4, 00196-6 ####SHANNON LABORATORYCLIA [id number] [place] [address] [place] Protein [Mass/Vol] 6.2 g/dL Low 6.3-8.0 [facility] Comment on above: Order Comment: Luz vaughan Type: BLOOD SPECIMENOrdering Facility: [facility] Address: [address] [place] [address] Performed By: #### 5 0190-8, 2275-4, 15031-5 ####ADKINS LABORATORYCLIA [id number] [place] [address] [place] Sodium [Moles/Vol] 138 mmol/L Normal 136-144 [facility] Comment on above: Order Comment: Speci men Type: BLOOD SPECIMENOrdering Facility: [facility] Address: [facility] [place] [address] Performed By: #### 5 0190-8, 2275-07, 03182-2 ####SHANNON LABORATORYCLIA [id number] [place] [address] [place] Urea nitrogen [Mass/Vol] 48 mg/dL High 9-24 [facility] Comment on above: Order Comment: Speci men Type: BLOOD SPECIMENOrdering Facility: [facility] Address: [facility] [place] [address] Performed By: #### 5 0190-8, 2275-07, ####SHANNON LABORATORYCLIA [id number] [place] [address] [place] Ferritin SerPl-mCncon 2024 Ferritin [Mass/Vol] 377.6 ng/mL Normal 30.3-565.7 [facility] Comment on above: Order Comment: Speci men Type: BLOOD SPECIMENOrdering Facility: [facility] Address: [facility] [place] [address] Performed By: #### 5 0190-8, 2275-07, 09260-3 ####SHANNON LABORATORYCLIA [id number] [place] [address] [place] Iron and Iron binding capaci ty panelon 07-24-2024 Iron [Mass/Vol] 31 ug/dL Low 41-186 [facility] Comment on above: Order Comment: Speci men Type: BLOOD SPECIMENOrdering Facility: [facility] Address: [facility] [place] [address] Performed By: #### 5 0190-8, 2275-07, 98384-3 ####SHANNON LABORATORYCLIA [id number] [address] [place] Iron binding capacity [Mass/Vol] 140 ug/dL Low 232-386 [facility] Comment on above: Order Comment: Speci men Type: BLOOD SPECIMENOrdering Facility: [facility] Address: [address] [place] [address] Performed By: #### 5 0190-8, 2276-4, 76576-2 ####ADKINS LABORATORYCLIA [id number] [place] [id number] [place] Iron/TIBC [Molar ratio] 22.1 % Normal 15.0-57.0 [facility] Comment on above: Order Comment: Speci men Type: BLOOD SPECIMENOrdering Facility: [facility] Address: [address] [place] [address] Performed By: #### 5 0190-8, 6-4, 21316-6 ####SHANNON LABORATORYCLIA [id number] [address] [place] NURSING PROGon 07-24-2024 NURSING PROG [facility] NUTRITIONon 07-24-2024 NUTRITION [facility] CASE MANAGEMon 07-23-2024 CASE MANAGEM [facility] CASE MANAGEM [facility] CBC panel Auto (Bld)on 07-23 Erythrocyte distribution width (RBC) [Ratio] 13.1 % Normal 11.5-15.0 [facility] Comment on above: Order Comment: Speci men Type: BLOOD SPECIMENOrdering Facility: [facility] Address: [address] [place] [address] Performed By: #### 5 8410-2 ####ADKINS LABORATORYCLIA [id number] [place] [id number] [facility] Hematocrit (Bld) [Volume fraction] 27.2 % Low 39.0-51.0 [facility] Comment on above: Order Comment: Speci men Type: BLOOD SPECIMENOrdering Facility: [facility] Address: [address] [place] [address] Performed By: #### 5 8410-2 ####ADKINS LABORATORYCLIA [id number] [address] [place] Hemoglobin (Bld) [Mass/Vol] 8.9 g/dL Low 13.0-17.0 [facility] Comment on above: Order Comment: Speci men Type: BLOOD SPECIMENOrdering Facility: [facility] Address: [address] [place] [address] Performed By: #### 5 8410-2 ####ADKINS LABORATORYCLIA [id number] [address] MCH (RBC) [Entitic mass] 28.5 pg Normal 26.0-34.0 [facility] Comment on above: Order Comment: Speci men Type: BLOOD SPECIMENOrdering Facility: [facility] Address: [address] [place] [address] Performed By: #### 5 8410-2 ####ADKINS LABORATORYCLIA [id number] [address] MCHC (RBC) [Mass/Vol] 32.7 g/dL Normal 30.5-36.0 [facility] Comment on above: Order Comment: Speci men Type: BLOOD SPECIMENOrdering Facility: [facility] Address: [address] [place] [address] Performed By: #### 5 8410-2 ####ADKINS LABORATORYCLIA [id number] [address] MCV (RBC) [Entitic vol] 87.2 fL Normal 80.0-100.0 [facility] Comment on above: Order Comment: Speci men Type: BLOOD SPECIMENOrdering Facility: [facility] Address: [address] [place] [address] Performed By: #### 5 8410-2 ####ADKINS LABORATORYCLIA [id number] [address] Nucleated RBC (Bld) [#/Vol] 10*3/uL Normal <0.01 [facility] Comment on above: Order Comment: Speci men Type: BLOOD SPECIMENOrdering Facility: [facility] Address: [address] [place] [address] Performed By: #### 5 8410-2 ####ADKINS LABORATORYCLIA [id number] [place] [address] [place] Platelet mean volume (Bld) [Entitic vol] 9.5 fL Normal 9.0-12.7 [facility] Comment on above: Order Comment: Speci men Type: BLOOD SPECIMENOrdering Facility: [facility] Address: [address] [place] [address] Performed By: #### 5 8410-2 ####ADKINS LABORATORYCLIA [id number] [place] [address] [place] Platelets (Bld) [#/Vol] 146 10*3/uL Low 150-400 [facility] Comment on above: Order Comment: Speci men Type: BLOOD SPECIMENOrdering Facility: [facility] Address: [address] [place] [address] Performed By: #### 5 8410-2 ####SHANNON LABORATORYCLIA [id number] [place] [address] [place] RBC (Bld) [#/Vol] 3.12 10*6/uL Low 4.20-6.00 [facility] Comment on above: Order Comment: Speci men Type: BLOOD SPECIMENOrdering Facility: [facility] Address: [address] [place] [address] Performed By: #### 5 8410-2 ####ADKINS LABORATORYCLIA [id number] [address] [place] WBC (Bld) [#/Vol] 4.90 10*3/uL Normal 3.70-11.00 [facility] Comment on above: Order Comment: Speci men Type: BLOOD SPECIMENOrdering Facility: [facility] Address: [address] [place] [address] Performed By: #### 5 8410-2 ####ADKINS LABORATORYCLIA [id number] [place] [id number] [facility] [place] CONSULT PROGon 07-23-2024 CONSULT PROG [facility] Comprehensive metabolic 2000 panelon 07-23-2024 Albumin [Mass/Vol] 3.0 g/dL Low 3.9-4.9 [facility] Comment on above: Order Comment: Speci men Type: BLOOD SPECIMENOrdering Facility: [facility] Address: [address] [place] [address] Performed By: #### 2 4323-8 ####ADKINS LABORATORYCLIA [id number] [address] [place] ALP [Catalytic activity/Vol] 104 U/L Normal 38-113 [facility] Comment on above: Order Comment: Speci men Type: BLOOD SPECIMENOrdering Facility: [facility] Address: [address] [place] [address] Performed By: #### 2 4323-8 ####ADKINS LABORATORYCLIA [id number] [place] [address] [place] ALT [Catalytic activity/Vol] 13 U/L Normal 10-54 [facility] Comment on above: Order Comment: Speci men Type: BLOOD SPECIMENOrdering Facility: [facility] Address: [address] [place] [address] Performed By: #### 2 4323-8 ####ADKINS LABORATORYCLIA [id number] [place] [address] [place] Anion gap [Moles/Vol] 10 mmol/L Normal 8-15 [facility] Comment on above: Order Comment: Speci men Type: BLOOD SPECIMENOrdering Facility: [facility] Address: [address] [place] [address] Performed By: #### 2 4323-8 ####ADKINS LABORATORYCLIA [id number] [address] [place] AST [Catalytic activity/Vol] 16 U/L Normal 14-40 [facility] Comment on above: Order Comment: Speci men Type: BLOOD SPECIMENOrdering Facility: [facility] Address: [address] [place] [address] Performed By: #### 2 4323-8 ####ADKINS LABORATORYCLIA [id number] [place] [address] [place] Bilirubin [Mass/Vol] 0.3 mg/dL Normal 0.2-1.3 [facility] Comment on above: Order Comment: Speci men Type: BLOOD SPECIMENOrdering Facility: [facility] Address: [address] [place] [address] Performed By: #### 2 4323-8 ####ADKINS LABORATORYCLIA [id number] [place] [address] [place] Calcium [Mass/Vol] 8.3 mg/dL Low 8.5-10.2 [facility] Comment on above: Order Comment: Speci men Type: BLOOD SPECIMENOrdering Facility: [facility] Address: [address] [place] [address] Performed By: #### 2 4323-8 ####ADKINS LABORATORYCLIA [id number] [place] [address] [place] Chloride [Moles/Vol] 98 mmol/L Normal 98-107 [facility] Comment on above: Order Comment: Speci men Type: BLOOD SPECIMENOrdering Facility: [facility] Address: [address] [place] [address] Performed By: #### 2 4323-8 ####ADKINS LABORATORYCLIA [id number] [place] [address] [place] CO2 [Moles/Vol] 28 mmol/L Normal 22-30 [facility] Comment on above: Order Comment: Speci men Type: BLOOD SPECIMENOrdering Facility: [facility] Address: [address] [place] [address] Performed By: #### 2 4323-8 ####ADKINS LABORATORYCLIA [id number] [place] [address] [place] Creatinine [Mass/Vol] 3.84 mg/dL High 0.73-1.22 [facility] Comment on above: Order Comment: Speci men Type: BLOOD SPECIMENOrdering Facility: [facility] Address: [address] [place] [address] Performed By: #### 2 4323-8 ####ADKINS LABORATORYCLIA [id number] [address] [place] Creatinine and Glomerular filtration rate.predicted panel (S/P/Bld) 17 mL/min/1.73m??? Low >=60 [facility] Comment on above: Order Comment: Speci men Type: BLOOD SPECIMENOrdering Facility: [facility] Address: [address] [place] [address] Result Comment: Breanne mated Glomerular Filtration Rate [...] actual GFR. Performed By: #### 2 4323-8 ####SHANNON LABORATORYCLIA [id number] [place] [id number] [place] Glucose [Mass/Vol] 153 mg/dL High 74-99 [facility] Comment on above: Order Comment: Luz vaughan Type: BLOOD SPECIMENOrdering Facility: [facility] Address: [address] [place] [address] Result Comment: The [place] Diabetes Association (ADA) provides guidance for cutoff [...] Standards of Medical Care in Diabetes 2016, [place] [employer]. Diabetes Care. 2016.39(Suppl 1). Performed By: #### 2 4323-8 ####SHANNON LABORATORYCLIA [id number] [place] [address] [place] Potassium [Moles/Vol] 4.2 mmol/L Normal 3.7-5.1 [facility] Comment on above: Order Comment: Luz vaughan Type: BLOOD SPECIMENOrdering Facility: [facility] Address: [address] [place] [id number] Performed By: #### 2 4323-8 ####SHANNON LABORATORYCLIA [id number] [place] [address] [place] Protein [Mass/Vol] 6.1 g/dL Low 6.3-8.0 [facility] Comment on above: Order Comment: Speci men Type: BLOOD SPECIMENOrdering Facility: [facility] Address: [address] [place] [address] Performed By: #### 2 4323-8 ####ADKINS LABORATORYCLIA [id number] [place] [address] [place] Sodium [Moles/Vol] 136 mmol/L Normal 136-144 [facility] Comment on above: Order Comment: Speci men Type: BLOOD SPECIMENOrdering Facility: [facility] Address: [address] [place] [address] Performed By: #### 2 4323-8 ####ADKINS LABORATORYCLIA [id number] [place] [address] [place] Urea nitrogen [Mass/Vol] 31 mg/dL High 9-24 [facility] Comment on above: Order Comment: Speci men Type: BLOOD SPECIMENOrdering Facility: [facility] Address: [address] [place] [address] Performed By: #### 2 4323-8 ####ADKINS LABORATORYCLIA [id number] [place] [address] [place] THERAPY NTon 07-23-2024 THERAPY NT [facility] THERAPY NT [facility] THERAPY NT [facility] Urinalysis complete panel (U )on 07-23-2024 Bilirubin Ql (U) Negative Normal Negative [facility] Comment on above: Order Comment: Speci men Type: URINE SPECIMENOrdering Facility: [facility] Address: [address] [place] [address] Performed By: #### 2 4356-8 ####ADKINS LABORATORYCLIA [id number] [address] [place] Clarity (Unsp spec) Slightly Cloudy Abnormal Clear [facility] Comment on above: Order Comment: Speci men Type: URINE SPECIMENOrdering Facility: [facility] Address: [address] [place] [address] Performed By: #### 2 4356-8 ####ADKINS LABORATORYCLIA [id number] [place] [address] [place] [facility] Color (U) Yellow Normal Yellow [facility] Comment on above: Order Comment: Speci men Type: URINE SPECIMENOrdering Facility: [facility] Address: [address] [place] [address] Performed By: #### 2 4356-8 ####ADKINS LABORATORYCLIA [id number] [place] [address] [facility] [place] Glucose Test strip (U) [Mass/Vol] 1+ Abnormal Negative [facility] Comment on above: Order Comment: Speci men Type: URINE SPECIMENOrdering Facility: [facility] Address: [address] [place] [address] Performed By: #### 2 4356-8 ####ADKINS LABORATORYCLIA [id number] [address] [place] Granular casts (Urine sed) [#/Area] 1-3 /LPF Abnormal 0 /LPF [facility] Comment on above: Order Comment: Speci men Type: URINE SPECIMENOrdering Facility: [facility] Address: [address] [place] [address] Performed By: #### 2 4356-8 ####ADKINS LABORATORYCLIA [id number] [address] [place] Hemoglobin Ql (U) Negative Normal Negative [facility] Comment on above: Order Comment: Speci men Type: URINE SPECIMENOrdering Facility: [facility] Address: [address] [place] [address] Performed By: #### 2 4356-8 ####ADKINS LABORATORYCLIA [id number] [place] [address] [place] Hyaline casts (Urine sed) [#/Area] 1-3 /LPF Abnormal 0 /LPF [facility] Comment on above: Order Comment: Speci men Type: URINE SPECIMENOrdering Facility: [facility] Address: [address] [place] [address] Performed By: #### 2 4356-8 ####ADKINS LABORATORYCLIA [id number] [place] [address] [place] [facility] [place] Ketones Ql (U) Negative Normal Negative [facility] Comment on above: Order Comment: Speci men Type: URINE SPECIMENOrdering Facility: [facility] Address: [address] [place] [address] Performed By: #### 2 4356-8 ####ADKINS LABORATORYCLIA [id number] [place] [address] [place] Leukocyte esterase Test strip Ql (U) Negative Normal Negative [facility] Comment on above: Order Comment: Speci men Type: URINE SPECIMENOrdering Facility: [facility] Address: [address] [place] [address] Performed By: #### 2 4356-8 ####ADKINS LABORATORYCLIA [id number] [place] [address] [place] Nitrite Ql (U) Negative Normal [facility] Comment on above: Order Comment: Speci men Type: URINE SPECIMENOrdering Facility: [facility] Address: [address] [place] [address] Performed By: #### 2 4356-8 ####ADKINS LABORATORYCLIA [id number] [place] [address] [place] pH (U) 6.0 [pH] Normal 5.0-8.0 [facility] Comment on above: Order Comment: Speci men Type: URINE SPECIMENOrdering Facility: [facility] Address: [address] [place] [address] Performed By: #### 2 4356-8 ####ADKINS LABORATORYCLIA [id number] [place] [address] [place] Protein (U) [Mass/Vol] 3+ Abnormal Negative [facility] Comment on above: Order Comment: Speci men Type: URINE SPECIMENOrdering Facility: [facility] Address: [address] [place] [address] Performed By: #### 2 4356-8 ####ADKINS LABORATORYCLIA [id number] [place] [address] [place] RBC LM.HPF (Urine sed) [#/Area] 0-3 /HPF Normal 0-3 /HPF [facility] Comment on above: Order Comment: Speci men Type: URINE SPECIMENOrdering Facility: [facility] Address: [address] [place] [address] Performed By: #### 2 4356-8 ####ADKINS LABORATORYCLIA [id number] [address] Specific gravity (U) [Rel density] 1.020 Normal 1.005-1.030 [facility] Comment on above: Order Comment: Speci men Type: URINE SPECIMENOrdering Facility: [facility] Address: [address] [place] [address] Performed By: #### 2 4356-8 ####SHANNON LABORATORYCLIA [id number] [address] Urobilinogen Ql (U) 0.2 EU/dL Normal 0.2-1.0 EU/dL [facility] Comment on above: Order Comment: Speci men Type: URINE SPECIMENOrdering Facility: [facility] Address: [address] [place] [address] Performed By: #### 2 4356-8 ####SHANNON LABORATORYCLIA [id number] [address] WBC LM.HPF (Urine sed) [#/Area] 0-5 /HPF Normal 0-5 /HPF [facility] Comment on above: Order Comment: Speci men Type: URINE SPECIMENOrdering Facility: [facility] Address: [address] [place] [address] Performed By: #### 2 4356-8 ####SHANNON LABORATORYCLIA [id number] [address] CASE MANAGEMon 07-22-2024 CASE MANAGEM [facility] CBC panel Auto (Bld)on 07-22 Erythrocyte distribution width (RBC) [Ratio] 13.1 % Normal 11.5-15.0 [facility] Comment on above: Order Comment: Speci men Type: BLOOD SPECIMENOrdering Facility: [facility] Address: [address] [place] [address] Performed By: #### 5 8410-2 ####SHANNON LABORATORYCLIA [id number] [address] Hematocrit (Bld) [Volume fraction] 27.0 % Low 39.0-51.0 [facility] Comment on above: Order Comment: Speci men Type: BLOOD SPECIMENOrdering Facility: [facility] Address: [address] [place] [address] Performed By: #### 5 8410-2 ####ADKINS LABORATORYCLIA [id number] [address] [place] Hemoglobin (Bld) [Mass/Vol] 9.0 g/dL Low 13.0-17.0 [facility] Comment on above: Order Comment: Speci men Type: BLOOD SPECIMENOrdering Facility: [facility] Address: [address] [place] [address] Performed By: #### 5 8410-2 ####ADKINS LABORATORYCLIA [id number] [address] MCH (RBC) [Entitic mass] 29.0 pg Normal 26.0-34.0 [facility] Comment on above: Order Comment: Speci men Type: BLOOD SPECIMENOrdering Facility: [facility] Address: [address] [place] [address] Performed By: #### 5 8410-2 ####ADKINS LABORATORYCLIA [id number] [address] MCHC (RBC) [Mass/Vol] 33.3 g/dL Normal 30.5-36.0 [facility] Comment on above: Order Comment: Speci men Type: BLOOD SPECIMENOrdering Facility: [facility] Address: [address] [place] [address] Performed By: #### 5 8410-2 ####ADKINS LABORATORYCLIA [id number] [address] MCV (RBC) [Entitic vol] 87.1 fL Normal 80.0-100.0 [facility] Comment on above: Order Comment: Speci men Type: BLOOD SPECIMENOrdering Facility: [facility] Address: [address] [place] [address] Performed By: #### 5 8410-2 ####ADKINS LABORATORYCLIA [id number] [place] [address] [place] Nucleated RBC (Bld) [#/Vol] 10*3/uL Normal <0.01 [facility] Comment on above: Order Comment: Speci men Type: BLOOD SPECIMENOrdering Facility: [facility] Address: [address] [place] [address] Performed By: #### 5 8410-2 ####ADKINS LABORATORYCLIA [id number] [place] [address] [place] Platelet mean volume (Bld) [Entitic vol] 9.0 fL Normal 9.0-12.7 [facility] Comment on above: Order Comment: Speci men Type: BLOOD SPECIMENOrdering Facility: [facility] Address: [address] [place] [address] Performed By: #### 5 8410-2 ####ADKINS LABORATORYCLIA [id number] [address] [place] Platelets (Bld) [#/Vol] 147 10*3/uL Low 150-400 [facility] Comment on above: Order Comment: Speci men Type: BLOOD SPECIMENOrdering Facility: [facility] Address: [address] [place] [address] Performed By: #### 5 8410-2 ####ADKINS LABORATORYCLIA [id number] [address] [place] RBC (Bld) [#/Vol] 3.10 10*6/uL Low 4.20-6.00 [facility] Comment on above: Order Comment: Speci men Type: BLOOD SPECIMENOrdering Facility: [facility] Address: [address] [place] [address] Performed By: #### 5 8410-2 ####ADKINS LABORATORYCLIA [id number] [address] [place] WBC (Bld) [#/Vol] 4.92 10*3/uL Normal 3.70-11.00 [facility] Comment on above: Order Comment: Speci men Type: BLOOD SPECIMENOrdering Facility: [facility] Address: [address] [place] [address] Performed By: #### 5 8410-2 ####ADKINS LABORATORYCLIA [id number] [place] [address] [place] CONSULT PROGon 07-22-2024 CONSULT PROG [facility] Comprehensive metabolic 2000 panelon 07-22-2024 Albumin [Mass/Vol] 2.9 g/dL Low 3.9-4.9 [facility] Comment on above: Order Comment: Speci men Type: BLOOD SPECIMENOrdering Facility: [facility] Address: [address] [place] [address] Performed By: #### 2 4323-8 ####ADKINS LABORATORYCLIA [id number] [place] [address] [place] ALP [Catalytic activity/Vol] 102 U/L Normal 38-113 [facility] Comment on above: Order Comment: Speci men Type: BLOOD SPECIMENOrdering Facility: [facility] Address: [address] [place] [address] Performed By: #### 2 4323-8 ####ADKINS LABORATORYCLIA [id number] [address] [place] ALT [Catalytic activity/Vol] 12 U/L Normal 10-54 [facility] Comment on above: Order Comment: Speci men Type: BLOOD SPECIMENOrdering Facility: [facility] Address: [address] [place] [address] Performed By: #### 2 4323-8 ####[facility] LABORATORYCLIA [id number] [place] [address] [place] Anion gap [Moles/Vol] 11 mmol/L Normal 8-15 [facility] Comment on above: Order Comment: Speci men Type: BLOOD SPECIMENOrdering Facility: [facility] Address: [address] [place] [address] Performed By: #### 2 4323-8 ####[facility] LABORATORYCLIA [id number] [place] [address] [place] AST [Catalytic activity/Vol] 18 U/L Normal 14-40 [facility] Comment on above: Order Comment: Speci men Type: BLOOD SPECIMENOrdering Facility: [facility] Address: [address] [place] [address] Performed By: #### 2 4323-8 ####ADKINS LABORATORYCLIA [id number] [place] [address] [place] Bilirubin [Mass/Vol] 0.2 mg/dL Normal 0.2-1.3 [facility] Comment on above: Order Comment: Speci men Type: BLOOD SPECIMENOrdering Facility: [facility] Address: [address] [place] [address] Performed By: #### 2 4323-8 ####ADKINS LABORATORYCLIA [id number] [place] [address] [place] Calcium [Mass/Vol] 8.4 mg/dL Low 8.5-10.2 [facility] Comment on above: Order Comment: Speci men Type: BLOOD SPECIMENOrdering Facility: [facility] Address: [address] [place] [address] Performed By: #### 2 4323-8 ####ADKINS LABORATORYCLIA [id number] [place] [address] [place] Chloride [Moles/Vol] 99 mmol/L Normal 98-107 [facility] Comment on above: Order Comment: Speci men Type: BLOOD SPECIMENOrdering Facility: [facility] Address: [address] [place] [address] Performed By: #### 2 4323-8 ####ADKINS LABORATORYCLIA [id number] [place] [address] [place] CO2 [Moles/Vol] 26 mmol/L Normal 22-30 [facility] Comment on above: Order Comment: Speci men Type: BLOOD SPECIMENOrdering Facility: [facility] Address: [address] [place] [address] Performed By: #### 2 4323-8 ####ADKINS LABORATORYCLIA [id number] [place] [address] [place] Creatinine [Mass/Vol] 5.23 mg/dL High 0.73-1.22 [facility] Comment on above: Order Comment: Speci men Type: BLOOD SPECIMENOrdering Facility: [facility] Address: [address] [place] [address] Performed By: #### 2 4323-8 ####SHANNON LABORATORYCLIA [id number] [place] [id number] [facility] Creatinine and Glomerular filtration rate.predicted panel (S/P/Bld) 12 mL/min/1.73m??? Low >=60 [facility] Comment on above: Order Comment: Luz vaughan Type: BLOOD SPECIMENOrdering Facility: [facility] Address: [address] [place] [address] Result Comment: Breanne mated Glomerular Filtration Rate [...] actual GFR. Performed By: #### 2 4323-8 ####SHANNON LABORATORYCLIA [id number] [place] [address] [place] [facility] Glucose [Mass/Vol] 108 mg/dL High 74-99 [facility] Comment on above: Order Comment: Luz vaughan Type: BLOOD SPECIMENOrdering Facility: [facility] Address: [address] [place] [address] Result Comment: The [place] Diabetes Association (ADA) provides guidance for cutoff [...] Standards of Medical Care in Diabetes 2016, [place] [employer]. Diabetes Care. 2016.39(Suppl 1). Performed By: #### 2 4323-8 ####ADKINS LABORATORYCLIA [id number] [place] [id number] [place] Potassium [Moles/Vol] 4.0 mmol/L Normal 3.7-5.1 [facility] Comment on above: Order Comment: Speci men Type: BLOOD SPECIMENOrdering Facility: [facility] Address: [address] [place] [address] Performed By: #### 2 4323-8 ####ADKINS LABORATORYCLIA [id number] [address] [place] Protein [Mass/Vol] 5.6 g/dL Low 6.3-8.0 [facility] Comment on above: Order Comment: Speci men Type: BLOOD SPECIMENOrdering Facility: [facility] Address: [address] [place] [address] Performed By: #### 2 4323-8 ####ADKINS LABORATORYCLIA [id number] [address] [place] Sodium [Moles/Vol] 136 mmol/L Normal 136-144 [facility] Comment on above: Order Comment: Speci men Type: BLOOD SPECIMENOrdering Facility: [facility] Address: [address] [place] [address] Performed By: #### 2 4323-8 ####ADKINS LABORATORYCLIA [id number] [address] [place] Urea nitrogen [Mass/Vol] 46 mg/dL High 9-24 [facility] Comment on above: Order Comment: Speci men Type: BLOOD SPECIMENOrdering Facility: [facility] Address: [address] [place] [address] Performed By: #### 2 4323-8 ####ADKINS LABORATORYCLIA [id number] [address] [place] THERAPY NTon 07-22-2024 THERAPY NT Normal [facility] CBC panel Auto (Bld)on 07-21 Erythrocyte distribution width (RBC) [Ratio] 13.2 % Normal 11.5-15.0 [facility] Comment on above: Order Comment: Speci men Type: BLOOD SPECIMENOrdering Facility: [facility] Address: [address] [place] [address] Performed By: #### 5 8410-2 ####ADKINS LABORATORYCLIA [id number] [address] Hematocrit (Bld) [Volume fraction] 27.0 % Low 39.0-51.0 [facility] Comment on above: Order Comment: Speci men Type: BLOOD SPECIMENOrdering Facility: [facility] Address: [address] [place] [address] Performed By: #### 5 8410-2 ####ADKINS LABORATORYCLIA [id number] [address] Hemoglobin (Bld) [Mass/Vol] 8.8 g/dL Low 13.0-17.0 [facility] Comment on above: Order Comment: Speci men Type: BLOOD SPECIMENOrdering Facility: [facility] Address: [address] [place] [address] Performed By: #### 5 8410-2 ####ADKINS LABORATORYCLIA [id number] [address] MCH (RBC) [Entitic mass] 28.6 pg Normal 26.0-34.0 [facility] Comment on above: Order Comment: Speci men Type: BLOOD SPECIMENOrdering Facility: [facility] Address: [address] [place] [address] Performed By: #### 5 8410-2 ####ADKINS LABORATORYCLIA [id number] [address] MCHC (RBC) [Mass/Vol] 32.6 g/dL Normal 30.5-36.0 [facility] Comment on above: Order Comment: Speci men Type: BLOOD SPECIMENOrdering Facility: [facility] Address: [address] [place] [address] Performed By: #### 5 8410-2 ####ADKINS LABORATORYCLIA [id number] [address] MCV (RBC) [Entitic vol] 87.7 fL Normal 80.0-100.0 [facility] Comment on above: Order Comment: Speci men Type: BLOOD SPECIMENOrdering Facility: [facility] Address: [address] [place] [address] Performed By: #### 5 8410-2 ####ADKINS LABORATORYCLIA [id number] [place] [address] [place] Nucleated RBC (Bld) [#/Vol] 10*3/uL Normal <0.01 [facility] Comment on above: Order Comment: Speci men Type: BLOOD SPECIMENOrdering Facility: [facility] Address: [address] [place] [address] Performed By: #### 5 8410-2 ####ADKINS LABORATORYCLIA [id number] [place] [address] [place] Platelet mean volume (Bld) [Entitic vol] 9.2 fL Normal 9.0-12.7 [facility] Comment on above: Order Comment: Speci men Type: BLOOD SPECIMENOrdering Facility: [facility] Address: [address] [place] [address] Performed By: #### 5 8410-2 ####ADKINS LABORATORYCLIA [id number] [address] [place] Platelets (Bld) [#/Vol] 148 10*3/uL Low 150-400 [facility] Comment on above: Order Comment: Speci men Type: BLOOD SPECIMENOrdering Facility: [facility] Address: [address] [place] [address] Performed By: #### 5 8410-2 ####ADKINS LABORATORYCLIA [id number] [address] [place] RBC (Bld) [#/Vol] 3.08 10*6/uL Low 4.20-6.00 [facility] Comment on above: Order Comment: Speci men Type: BLOOD SPECIMENOrdering Facility: [facility] Address: [address] [place] [address] Performed By: #### 5 8410-2 ####ADKINS LABORATORYCLIA [id number] [address] [place] WBC (Bld) [#/Vol] 4.39 10*3/uL Normal 3.70-11.00 [facility] Comment on above: Order Comment: Speci men Type: BLOOD SPECIMENOrdering Facility: [facility] Address: [address] [place] [address] Performed By: #### 5 8410-2 ####ADKINS LABORATORYCLIA [id number] [place] [address] [place] CONSULT PROGon 07-21-2024 CONSULT PROG [facility] Comprehensive metabolic 2000 panelon 07-21-2024 Albumin [Mass/Vol] 3.2 g/dL Low 3.9-4.9 [facility] Comment on above: Order Comment: Speci men Type: BLOOD SPECIMENOrdering Facility: [facility] Address: [address] [place] [address] Performed By: #### 2 4323-8 ####ADKINS LABORATORYCLIA [id number] [address] [place] ALP [Catalytic activity/Vol] 106 U/L Normal 38-113 [facility] Comment on above: Order Comment: Speci men Type: BLOOD SPECIMENOrdering Facility: [facility] Address: [address] [place] [address] Performed By: #### 2 4323-8 ####ADKINS LABORATORYCLIA [id number] [address] [place] ALT [Catalytic activity/Vol] 13 U/L Normal 10-54 [facility] Comment on above: Order Comment: Speci men Type: BLOOD SPECIMENOrdering Facility: [facility] Address: [address] [place] [address] Performed By: #### 2 4323-8 ####ADKINS LABORATORYCLIA [id number] [place] [address] [place] Anion gap [Moles/Vol] 14 mmol/L Normal 8-15 [facility] Comment on above: Order Comment: Speci men Type: BLOOD SPECIMENOrdering Facility: [facility] Address: [address] [place] [address] Performed By: #### 2 4323-8 ####ADKINS LABORATORYCLIA [id number] [place] [address] [place] AST [Catalytic activity/Vol] 25 U/L Normal 14-40 [facility] Comment on above: Order Comment: Speci men Type: BLOOD SPECIMENOrdering Facility: [facility] Address: [address] [place] [address] [place] [address] Performed By: #### 2 4323-8 ####ADKINS LABORATORYCLIA [id number] [place] [address] [place] Bilirubin [Mass/Vol] 0.3 mg/dL Normal 0.2-1.3 [facility] Comment on above: Order Comment: Speci men Type: BLOOD SPECIMENOrdering Facility: [facility] Address: [address] [place] [address] Performed By: #### 2 4323-8 ####ADKINS LABORATORYCLIA [id number] [place] [address] [place] Calcium [Mass/Vol] 8.6 mg/dL Normal 8.5-10.2 [facility] Comment on above: Order Comment: Speci men Type: BLOOD SPECIMENOrdering Facility: [facility] Address: [address] [place] [address] Performed By: #### 2 4323-8 ####ADKINS LABORATORYCLIA [id number] [place] [address] [place] Chloride [Moles/Vol] 96 mmol/L Low 98-107 [facility] Comment on above: Order Comment: Speci men Type: BLOOD SPECIMENOrdering Facility: [facility] Address: [address] [place] [address] Performed By: #### 2 4323-8 ####ADKINS LABORATORYCLIA [id number] [place] [address] [place] CO2 [Moles/Vol] 25 mmol/L Normal 22-30 [facility] Comment on above: Order Comment: Speci men Type: BLOOD SPECIMENOrdering Facility: [facility] Address: [address] [place] [address] Performed By: #### 2 4323-8 ####ADKINS LABORATORYCLIA [id number] [place] [address] [place] Creatinine [Mass/Vol] 4.12 mg/dL High 0.73-1.22 [facility] Comment on above: Order Comment: Luz vaughan Type: BLOOD SPECIMENOrdering Facility: [facility] Address: [address] [place] [address] Performed By: #### 2 4323-8 ####LUCILLE LABORATORYCLIA [id number] [place] [id number] [place] Creatinine and Glomerular filtration rate.predicted panel (S/P/Bld) 15 mL/min/1.73m??? Low >=60 [facility] Comment on above: Order Comment: Luz vaughan Type: BLOOD SPECIMENOrdering Facility: [facility] Address: [address] [place] [address] Result Comment: Breanne mated Glomerular Filtration Rate [...] Performed By: #### 2 4323-8 ####ADKINS LABORATORYCLIA [id number] [place] [id number] [place] Glucose [Mass/Vol] 85 mg/dL Normal 74-99 [facility] Comment on above: Order Comment: Luz vaughan Type: BLOOD SPECIMENOrdering Facility: [facility] Address: [address] [place] [address] Result Comment: The [place] Diabetes Association (ADA) provides guidance for cutoff [...] Standards of Medical Care in Diabetes 2016, [place] [employer]. Diabetes Care. 2016.39(Suppl 1). Performed By: #### 2 4323-8 ####ADKINS LABORATORYCLIA [id number] [address] [place] Potassium [Moles/Vol] 3.8 mmol/L Normal 3.7-5.1 [facility] Comment on above: Order Comment: Speci men Type: BLOOD SPECIMENOrdering Facility: [facility] Address: [address] [place] [address] Performed By: #### 2 4323-8 ####ADKINS LABORATORYCLIA [id number] [address] [place] [facility] Protein [Mass/Vol] 5.8 g/dL Low 6.3-8.0 [facility] Comment on above: Order Comment: Speci men Type: BLOOD SPECIMENOrdering Facility: [facility] Address: [address] [place] [address] Performed By: #### 2 4323-8 ####ADKINS LABORATORYCLIA [id number] [address] [place] Sodium [Moles/Vol] 135 mmol/L Low 136-144 [facility] Comment on above: Order Comment: Speci men Type: BLOOD SPECIMENOrdering Facility: [facility] Address: [address] [place] [address] Performed By: #### 2 4323-8 ####ADKINS LABORATORYCLIA [id number] [address] [place] Urea nitrogen [Mass/Vol] 34 mg/dL High 9-24 [facility] Comment on above: Order Comment: Speci men Type: BLOOD SPECIMENOrdering Facility: [facility] Address: [address] [place] [address] Performed By: #### 2 4323-8 ####ADKINS LABORATORYCLIA [id number] [place] [address] [place] Basic metabolic 2000 panelon 07-20-2024 Anion gap [Moles/Vol] 15 mmol/L Normal 8-15 [facility] Comment on above: Order Comment: Speci men Type: BLOOD SPECIMENOrdering Facility: [facility] Address: [address] [place] [address] Performed By: #### 2 4321-2 ####ADKINS LABORATORYCLIA [id number] [place] [address] [place] Calcium [Mass/Vol] 9.1 mg/dL Normal 8.5-10.2 [facility] Comment on above: Order Comment: Speci men Type: BLOOD SPECIMENOrdering Facility: [facility] Address: [address] [place] [address] Performed By: #### 2 4321-2 ####ADKINS LABORATORYCLIA [id number] [place] [address] [place] Chloride [Moles/Vol] 101 mmol/L Normal 98-107 [facility] Comment on above: Order Comment: Speci men Type: BLOOD SPECIMENOrdering Facility: [facility] Address: [address] [place] [address] Performed By: #### 2 4321-2 ####ADKINS LABORATORYCLIA [id number] [place] [address] [place] CO2 [Moles/Vol] 23 mmol/L Normal 22-30 [facility] Comment on above: Order Comment: Speci men Type: BLOOD SPECIMENOrdering Facility: [facility] Address: [address] [place] [address] Performed By: #### 2 4321-2 ####ADKINS LABORATORYCLIA [id number] [place] [address] [place] Creatinine [Mass/Vol] 5.49 mg/dL High 0.73-1.22 [facility] Comment on above: Order Comment: Speci men Type: BLOOD SPECIMENOrdering Facility: [facility] Address: [address] [place] [address] Performed By: #### 2 4321-2 ####ADKINS LABORATORYCLIA [id number] [address] [place] Creatinine and Glomerular filtration rate.predicted panel (S/P/Bld) 11 mL/min/1.73m??? Low >=60 [facility] Comment on above: Order Comment: Speci men Type: BLOOD SPECIMENOrdering Facility: [facility] Address: [address] [place] [address] Result Comment: Breanne mated Glomerular Filtration Rate [...] Performed By: #### 2 4321-2 ####ADKINS LABORATORYCLIA [id number] [place] [address] [place] Glucose [Mass/Vol] 123 mg/dL High 74-99 [facility] Comment on above: Order Comment: Luz vaughan Type: BLOOD SPECIMENOrdering Facility: [facility] Address: [address] [facility] [place] [address] Result Comment: The [place] Diabetes Association (ADA) provides guidance for cutoff [...] Standards of Medical Care in Diabetes 2016, [place] [employer]. Diabetes Care. 2016.39(Suppl 1). Performed By: #### 2 4321-2 ####ADKINS LABORATORYCLIA [id number] [place] [id number] [place] Potassium [Moles/Vol] 4.5 mmol/L Normal 3.7-5.1 [facility] Comment on above: Order Comment: Luz vaughan Type: BLOOD SPECIMENOrdering Facility: [facility] Address: [address] [place] [address] Performed By: #### 2 4321-2 ####ADKINS LABORATORYCLIA [id number] [place] [address] [place] Sodium [Moles/Vol] 139 mmol/L Normal 136-144 [facility] Comment on above: Order Comment: Speci men Type: BLOOD SPECIMENOrdering Facility: [facility] Address: [address] [place] [id number] Performed By: #### 2 4321-2 ####ADKINS LABORATORYCLIA [id number] [place] [address] [place] Urea nitrogen [Mass/Vol] 57 mg/dL High 9-24 [facility] Comment on above: Order Comment: Speci men Type: BLOOD SPECIMENOrdering Facility: [facility] Address: [address] [place] [address] Performed By: #### 2 4321-2 ####ADKINS LABORATORYCLIA [id number] [place] [address] [place] [address] BRAIN WO IVCONon 07-21-19 CT BRAIN WO IVCON [facility] 07-19-2024 CASE MANAGEM [facility] CONSULT PROn 07-19-2024 CONSULT [facility] Renal function 2000 panelon 07-19-2024 Albumin [Mass/Vol] 3.2 g/dL Low 3.9-4.9 [facility] Comment on above: Order Comment: Speci men Type: BLOOD SPECIMENOrdering Facility: [facility] Address: [address] [place] [address] Performed By: #### 2 4362-6 ####ADKINS LABORATORYCLIA [id number] [place] [address] [place] Anion gap [Moles/Vol] 20 mmol/L High 8-15 [facility] Comment on above: Order Comment: Speci men Type: BLOOD SPECIMENOrdering Facility: [facility] Address: [address] [place], [place] [address] Performed By: #### 2 4362-6 ####ADKINS LABORATORYCLIA [id number] [place] [address] [place] Calcium [Mass/Vol] 9.1 mg/dL Normal 8.5-10.2 [facility] Comment on above: Order Comment: Speci men Type: BLOOD SPECIMENOrdering Facility: [facility] Address: [address] [place], [place] [address] Performed By: #### 2 4362-6 ####ADKINS LABORATORYCLIA [id number] [place] [address] [place] Chloride [Moles/Vol] 109 mmol/L High 98-107 [facility] Comment on above: Order Comment: Speci men Type: BLOOD SPECIMENOrdering Facility: [facility] Address: [address] [place] [address] Performed By: #### 2 4362-6 ####ADKINS LABORATORYCLIA [id number] [place] [address] [place] CO2 [Moles/Vol] 16 mmol/L Low 22-30 [facility] Comment on above: Order Comment: Speci men Type: BLOOD SPECIMENOrdering Facility: [facility] Address: [address] [place] [address] Performed By: #### 2 4362-6 ####ADKINS LABORATORYCLIA [id number] [place] [address] [place] Creatinine [Mass/Vol] 6.51 mg/dL High 0.73-1.22 [facility] Comment on above: Order Comment: Speci men Type: BLOOD SPECIMENOrdering Facility: [facility] Address: [address] [place] [address] Performed By: #### 2 4362-6 ####ADKINS LABORATORYCLIA [id number] [address] Creatinine and Glomerular filtration rate.predicted panel (S/P/Bld) 9 mL/min/1.73m??? Low >=60 [facility] Comment on above: Order Comment: Speci men Type: BLOOD SPECIMENOrdering Facility: [facility] Address: [address] [place] [address] Result Comment: Breanne mated Glomerular Filtration Rate [...] Performed By: #### 2 4362-6 ####ADKINS LABORATORYCLIA [id number] [place] [address] [place] Glucose [Mass/Vol] 100 mg/dL High 74-99 [facility] Comment on above: Order Comment: Luz clement Type: BLOOD SPECIMENOrdering Facility: [facility] Address: [address] [place] [address] Result Comment: The [place] Diabetes Association (ADA) provides guidance for cutoff [...] Standards of Medical Care in Diabetes 2016, [place] [employer]. Diabetes Care. 2016.39(Suppl 1). Performed By: #### 2 4362-6 ####ADKINS LABORATORYCLIA [id number] [place] [id number] [place] Phosphate [Mass/Vol] 10.9 mg/dL High 2.7-4.8 [facility] Comment on above: Order Comment: Luz vaughan Type: BLOOD SPECIMENOrdering Facility: [facility] Address: [address] [place] [address] Performed By: #### 2 4362-6 ####ADKINS LABORATORYCLIA [id number] [place] [id number] [place] Potassium [Moles/Vol] 5.4 mmol/L High 3.7-5.1 [facility] Comment on above: Order Comment: Luz men Type: BLOOD SPECIMENOrdering Facility: [facility] Address: [address] [place] [address] Performed By: #### 2 4362-6 ####ADKINS LABORATORYCLIA [id number] [place] [id number] [place] Sodium [Moles/Vol] 145 mmol/L High 136-144 [facility] Comment on above: Order Comment: Speci men Type: BLOOD SPECIMENOrdering Facility: [facility] Address: [address] [place] [address] Performed By: #### 2 4362-6 ####ADKINS LABORATORYCLIA [id number] [address] STATES [facility] Urea nitrogen [Mass/Vol] 83 mg/dL High 9-24 [facility] Comment on above: Order Comment: Speci men Type: BLOOD SPECIMENOrdering Facility: [facility] Address: [address] [place] [address] Performed By: #### 2 4362-6 ####ADKINS LABORATORYCLIA [id number] [address] [place] BRIEF OP NOTon 07-18-2024 BRIEF OP NOT [facility] CASE MANAGEMon 07-18-2024 CASE MANAGEM [facility] CBC W Auto Differential pane l (Bld)on 07-18-2024 Basophils (Bld) [#/Vol] 10*3/uL Normal <0.11 [facility] Comment on above: Order Comment: Speci men Type: BLOOD SPECIMENOrdering Facility: [facility] Address: [address] [place] [address] Performed By: #### 5 7021-8 ####ADKINS LABORATORYCLIA [id number] [address] STATES [facility] Basophils/100 WBC (Bld) 0.2 % [facility] Comment on above: Order Comment: Speci men Type: BLOOD SPECIMENOrdering Facility: [facility] Address: [address] [place] [address] Performed By: #### 5 7021-8 ####ADKINS LABORATORYCLIA [id number] [address] Differential cell count method Nom (Bld) Auto [facility] Comment on above: Order Comment: Speci men Type: BLOOD SPECIMENOrdering Facility: [facility] Address: [address] [place] [address] Performed By: #### 5 7021-8 ####ADKINS LABORATORYCLIA [id number] [place] [address] [place] Eosinophils (Bld) [#/Vol] 0.49 10*3/uL High <0.46 [facility] Comment on above: Order Comment: Speci men Type: BLOOD SPECIMENOrdering Facility: [facility] Address: [address] [place] [address] Performed By: #### 5 7021-8 ####ADKINS LABORATORYCLIA [id number] [address] [place] Eosinophils/100 WBC (Bld) 8.3 % [facility] Comment on above: Order Comment: Speci men Type: BLOOD SPECIMENOrdering Facility: [facility] Address: [address] [place] [address] Performed By: #### 5 7021-8 ####ADKINS LABORATORYCLIA [id number] [address] Erythrocyte distribution width (RBC) [Ratio] 13.2 % Normal 11.5-15.0 [facility] Comment on above: Order Comment: Speci men Type: BLOOD SPECIMENOrdering Facility: [facility] Address: [address] [place] [address] Performed By: #### 5 7021-8 ####ADKINS LABORATORYCLIA [id number] [address] [place] Hematocrit (Bld) [Volume fraction] 29.6 % Low 39.0-51.0 [facility] Comment on above: Order Comment: Speci men Type: BLOOD SPECIMENOrdering Facility: [facility] Address: [address] [place] [address] Performed By: #### 5 7021-8 ####ADKINS LABORATORYCLIA [id number] [address] Hemoglobin (Bld) [Mass/Vol] 9.4 g/dL Low 13.0-17.0 [facility] Comment on above: Order Comment: Speci men Type: BLOOD SPECIMENOrdering Facility: [facility] Address: [address] [place] [address] Performed By: #### 5 7021-8 ####ADKINS LABORATORYCLIA [id number] [address] [place] Immature granulocytes (Bld) [#/Vol] 10*3/uL Normal <0.10 [facility] Comment on above: Order Comment: Speci men Type: BLOOD SPECIMENOrdering Facility: [facility] Address: [address] [place] [address] Performed By: #### 5 7021-8 ####ADKINS LABORATORYCLIA [id number] [address] Immature granulocytes/100 WBC (Bld) 0.3 % Normal [facility] Comment on above: Order Comment: Speci men Type: BLOOD SPECIMENOrdering Facility: [facility] Address: [address] [place] [address] Performed By: #### 5 7021-8 ####[facility] LABORATORYCLIA [id number] [address] [place] Lymphocytes (Bld) [#/Vol] 1.17 10*3/uL Normal 1[facility]00[facility].00 [facility] Comment on above: Order Comment: Speci men Type: BLOOD SPECIMENOrdering Facility: [facility] Address: [address] [place] [address] Performed By: #### 5 7021-8 ####[facility] LABORATORYCLIA [id number] [address] Lymphocytes/100 WBC (Bld) 19.8 % [facility] Comment on above: Order Comment: Speci men Type: BLOOD SPECIMENOrdering Facility: [facility] Address: [address] [place] [address] Performed By: #### 5 7021-8 ####ADK[facility] LABORATORYCLIA [id number] [address] [place] [facility] MCH (RBC) [Entitic mass] 28.7 pg Normal 26.0-34.0 [facility] Comment on above: Order Comment: Speci men Type: BLOOD SPECIMENOrdering Facility: [facility] Address: [address] [place] [address] Performed By: #### 5 7021-8 ####ADKINS LABORATORYCLIA [id number] [place] [address] [place] MCHC (RBC) [Mass/Vol] 31.8 g/dL Normal 30.5-36.0 [facility] Comment on above: Order Comment: Speci men Type: BLOOD SPECIMENOrdering Facility: [facility] Address: [address] [place] [address] Performed By: #### 5 7021-8 ####ADK[facility] LABORATORYCLIA [id number] [address] MCV (RBC) [Entitic vol] 90.5 fL Normal 80.0-100.0 [facility] Comment on above: Order Comment: Speci men Type: BLOOD SPECIMENOrdering Facility: [facility] Address: [address] [place] [address] Performed By: #### 5 7021-8 ####ADKINS LABORATORYCLIA [id number] [place] [address] [place] Monocytes (Bld) [#/Vol] 0.64 10*3/uL Normal <0.87 [facility] Comment on above: Order Comment: Speci men Type: BLOOD SPECIMENOrdering Facility: [facility] Address: [address] [place] [address] Performed By: #### 5 7021-8 ####ADKINS LABORATORYCLIA [id number] [address] Monocytes/100 WBC (Bld) 10.8 % [facility] Comment on above: Order Comment: Speci men Type: BLOOD SPECIMENOrdering Facility: [facility] Address: [address] [place] [address] Performed By: #### 5 7021-8 ####ADKINS LABORATORYCLIA [id number] [place] [address] [place] Neutrophils (Bld) [#/Vol] 3.59 10*3/uL Normal 1.45-7.50 [facility] Comment on above: Order Comment: Speci men Type: BLOOD SPECIMENOrdering Facility: [facility] Address: [address] [place] [address] Performed By: #### 5 7021-8 ####ADKINS LABORATORYCLIA [id number] [address] Neutrophils/100 WBC (Bld) 60.6 % [facility] Comment on above: Order Comment: Speci men Type: BLOOD SPECIMENOrdering Facility: [facility] Address: [address] [place] [address] Performed By: #### 5 7021-8 ####ADKINS LABORATORYCLIA [id number] [address] [place] Nucleated RBC (Bld) [#/Vol] 10*3/uL Normal <0.01 [facility] Comment on above: Order Comment: Speci men Type: BLOOD SPECIMENOrdering Facility: [facility] Address: [address] [place] [address] Performed By: #### 5 7021-8 ####ADKINS LABORATORYCLIA [id number] [address] Nucleated RBC/100 WBC (Bld) [Ratio] 0.0 /100 WBC [facility] Comment on above: Order Comment: Speci men Type: BLOOD SPECIMENOrdering Facility: [facility] Address: [address] [place] [address] Performed By: #### 5 7021-8 ####ADKINS LABORATORYCLIA [id number] [address] [place] Platelet mean volume (Bld) [Entitic vol] 9.7 fL Normal 9.0-12.7 [facility] Comment on above: Order Comment: Speci men Type: BLOOD SPECIMENOrdering Facility: [facility] Address: [address] [place] [address] Performed By: #### 5 7021-8 ####ADKINS LABORATORYCLIA [id number] [address] [place] Platelets (Bld) [#/Vol] 198 10*3/uL Normal 150-400 [facility] Comment on above: Order Comment: Speci men Type: BLOOD SPECIMENOrdering Facility: [facility] Address: [address] [place] [address] Performed By: #### 5 7021-8 ####ADKINS LABORATORYCLIA [id number] [place] [address] [place] RBC (Bld) [#/Vol] 3.27 10*6/uL Low 4.20-6.00 [facility] Comment on above: Order Comment: Speci men Type: BLOOD SPECIMENOrdering Facility: [facility] Address: [address] [place] [address] Performed By: #### 5 7021-8 ####ADKINS LABORATORYCLIA [id number] [address] WBC (Bld) [#/Vol] 5.92 10*3/uL Normal 3.70-11.00 [facility] Comment on above: Order Comment: Speci men Type: BLOOD SPECIMENOrdering Facility: [facility] Address: [address] [place] [address] Performed By: #### 5 7021-8 ####ADK[facility] LABORATORYCLIA [id number] [address] CONSULT PROGon 07-18-2024 CONSULT PROG [facility] Comprehensive metabolic 2000 panelon 07-18-2024 Albumin [Mass/Vol] 3.0 g/dL Low 3.9-4.9 [facility] Comment on above: Order Comment: Speci men Type: BLOOD SPECIMENOrdering Facility: [facility] Address: [address] [place] [address] Performed By: #### 2 4323-8 ####ADK[facility] LABORATORYCLIA [id number] [address] [place] ALP [Catalytic activity/Vol] 103 U/L Normal 38-113 [facility] Comment on above: Order Comment: Speci men Type: BLOOD SPECIMENOrdering Facility: [facility] Address: [address] [place] [address] Performed By: #### 2 4323-8 ####ADK[facility] LABORATORYCLIA [id number] [address] ALT [Catalytic activity/Vol] 8 U/L Low 10-54 [facility] Comment on above: Order Comment: Speci men Type: BLOOD SPECIMENOrdering Facility: [facility] Address: [address] [place] [address] Performed By: #### 2 4323-8 ####ADKINS LABORATORYCLIA [id number] [place] [address] [place] Anion gap [Moles/Vol] 11 mmol/L Normal 8-15 [facility] Comment on above: Order Comment: Speci men Type: BLOOD SPECIMENOrdering Facility: [facility] Address: [address] [place] [address] Performed By: #### 2 4323-8 ####ADK[facility] LABORATORYCLIA [id number] [address] [place] AST [Catalytic activity/Vol] 10 U/L Low 14-40 [facility] Comment on above: Order Comment: Speci men Type: BLOOD SPECIMENOrdering Facility: [facility] Address: [address] [place] [address] Performed By: #### 2 4323-8 ####ADK[facility] LABORATORYCLIA [id number] [place] [address] [place] Bilirubin [Mass/Vol] 0.2 mg/dL Normal 0.2-1.3 [facility] Comment on above: Order Comment: Speci men Type: BLOOD SPECIMENOrdering Facility: [facility] Address: [address] [place] [address] Performed By: #### 2 4323-8 ####ADKINS LABORATORYCLIA [id number] [address] [place] Calcium [Mass/Vol] 9.1 mg/dL Normal 8.5-10.2 [facility] Comment on above: Order Comment: Speci men Type: BLOOD SPECIMENOrdering Facility: [facility] Address: [address] [place] [address] Performed By: #### 2 4323-8 ####ADKINS LABORATORYCLIA [id number] [place] [address] [place] Chloride [Moles/Vol] 112 mmol/L High 98-107 [facility] Comment on above: Order Comment: Speci men Type: BLOOD SPECIMENOrdering Facility: [facility] Address: [address] [place] [address] Performed By: #### 2 4323-8 ####ADKINS LABORATORYCLIA [id number] [place] [address] [place] CO2 [Moles/Vol] 20 mmol/L Low 22-30 [facility] Comment on above: Order Comment: Brooksi men Type: BLOOD SPECIMENOrdering Facility: [facility] Address: [address] [place] [address] Performed By: #### 2 4323-8 ####ADKINS LABORATORYCLIA [id number] [place] [address] [place] Creatinine [Mass/Vol] 5.34 mg/dL High 0.73-1.22 [facility] Comment on above: Order Comment: Brooksi men Type: BLOOD SPECIMENOrdering Facility: [facility] Address: [address] [place] [address] Performed By: #### 2 4323-8 ####ADKINS LABORATORYCLIA [id number] [address] [place] Creatinine and Glomerular filtration rate.predicted panel (S/P/Bld) 11 mL/min/1.73m??? Low >=60 [facility] Comment on above: Order Comment: Luz men Type: BLOOD SPECIMENOrdering Facility: [facility] Address: [address] [place] [address] Result Comment: Breanne mated Glomerular Filtration Rate [...] Performed By: #### 2 4323-8 ####ADK[facility] LABORATORYCLIA [id number] [place] [address] [place] Glucose [Mass/Vol] 72 mg/dL Low 74-99 [facility] Comment on above: Order Comment: Brooksi men Type: BLOOD SPECIMENOrdering Facility: [facility] Address: [address] [place] [address] Result Comment: The [place] Diabetes Association (ADA) provides guidance for cutoff [...] Standards of Medical Care in Diabetes 2016, [place] [employer]. Diabetes Care. 2016.39(Suppl 1). Performed By: #### 2 4323-8 ####ADKINS LABORATORYCLIA [id number] [place] [address] [place] Potassium [Moles/Vol] 5.2 mmol/L High 3.7-5.1 [facility] Comment on above: Order Comment: Speci men Type: BLOOD SPECIMENOrdering Facility: [facility] Address: [address] [place] [address] Performed By: #### 2 4323-8 ####ADKINS LABORATORYCLIA [id number] [place] [address] [place] Protein [Mass/Vol] 5.9 g/dL Low 6.3-8.0 [facility] Comment on above: Order Comment: Speci men Type: BLOOD SPECIMENOrdering Facility: [facility] Address: [address] [place] [address] Performed By: #### 2 4323-8 ####ADKINS LABORATORYCLIA [id number] [place] [address] [place] Sodium [Moles/Vol] 143 mmol/L Normal 136-144 [facility] Comment on above: Order Comment: Speci men Type: BLOOD SPECIMENOrdering Facility: [facility] Address: [address] [place] [address] Performed By: #### 2 4323-8 ####ADK[facility] LABORATORYCLIA [id number] [place] [address] [place] Urea nitrogen [Mass/Vol] 76 mg/dL High 9-24 [facility] Comment on above: Order Comment: Speci men Type: BLOOD SPECIMENOrdering Facility: [facility] Address: [address] [place] [address] Performed By: #### 2 4323-8 ####SHANNON LABORATORYCLIA [id number] [place] [address] [place] HBV surface Ab Ql (S)on 07-02 HBV surface Ab Qn (S) <8.00 Normal [facility] Comment on above: Order Comment: Speci men Type: BLOOD SPECIMENOrdering Facility: [facility] Address: [address] [place] [address] Result Comment: <8 m IU/mL: No serological evidence of immunity to Hepatitis B Virus.>/= 8 to <12 mIU/mL: No serological evidence of immunity to Hepatitis B Virus.>/= 12 mIU/mL: Consistent with serological evidence of immunity to Hepatitis B Virus. Performed By: #### 2 2322-2, 519-3 ####[facility] LABCLIA [id number] [address] [place] HBV surface Ab Ser Qlon 07-02 HBV surface Ab Ql (S) Negative Normal [facility] Comment on above: Order Comment: Speci men Type: BLOOD SPECIMENOrdering Facility: [facility] Address: [address] [place] [address] Result Comment: No s erological evidence of immunity to Hepatitis B Virus. Performed By: #### 2 2322-2, 5194-3 ####[facility] LABCLIA [id number] [place] [address] [place] HBV surface Ag Ser Qlon 07-02 HBV surface Ag Ql (S) Negative Normal Negative [facility] Comment on above: Order Comment: Speci men Type: BLOOD SPECIMENOrdering Facility: [facility] Address: [address] [place] [address] Performed By: #### 2 2322-2, 519-3 ####[facility] LABCLIA [id number] [place] [address] [place] IR CVC TUNNEL W/O PORT INSER Ton 07-18-2024 IR CVC TUNNEL W/O PORT INSERT [facility] NURSING PROGon 07-18-2024 NURSING PROG [facility] PT EDon 07-18-2024 PT ED [facility] THERAPY NTon 07-18-2024 THERAPY NT [facility] CASE MANAGEMon 07-17-2024 CASE MANAGEM [facility] CBC W Auto Differential pane l (Bld)on 07-17-2024 Basophils (Bld) [#/Vol] 10*3/uL Normal <0.11 [facility] Comment on above: Order Comment: Speci men Type: BLOOD SPECIMENOrdering Facility: [facility] Address: [address] [place] [address] Performed By: #### 5 7021-8 ####ADK[facility] LABORATORYCLIA [id number] [place] [address] [place] Basophils/100 WBC (Bld) 0.2 % [facility] Comment on above: Order Comment: Speci men Type: BLOOD SPECIMENOrdering Facility: [facility] Address: [address] [place] [address] Performed By: #### 5 7021-8 ####ADKINS LABORATORYCLIA [id number] [place] [id number] [place] Differential cell count method Nom (Bld) Auto [facility] Comment on above: Order Comment: Speci men Type: BLOOD SPECIMENOrdering Facility: [facility] Address: [address] [place] [address] Performed By: #### 5 7021-8 ####ADK[facility] LABORATORYCLIA [id number] [place] [address] [place] Eosinophils (Bld) [#/Vol] 0.36 10*3/uL Normal <0.46 [facility] Comment on above: Order Comment: Speci men Type: BLOOD SPECIMENOrdering Facility: [facility] Address: [address] [place] [address] Performed By: #### 5 7021-8 ####ADK[facility] LABORATORYCLIA [id number] [place] [address] [place] Eosinophils/100 WBC (Bld) 5.8 % [facility] Comment on above: Order Comment: Speci men Type: BLOOD SPECIMENOrdering Facility: [facility] Address: [address] [place] [address] Performed By: #### 5 7021-8 ####[facility] LABORATORYCLIA [id number] [place] [address] [place] Erythrocyte distribution width (RBC) [Ratio] 13.2 % Normal 11.5-15.0 [facility] Comment on above: Order Comment: Speci men Type: BLOOD SPECIMENOrdering Facility: [facility] Address: [address] [place] [address] Performed By: #### 5 7021-8 ####ADK[facility] LABORATORYCLIA [id number] [address] [place] Hematocrit (Bld) [Volume fraction] 31.9 % Low 39.0-51.0 [facility] Comment on above: Order Comment: Speci men Type: BLOOD SPECIMENOrdering Facility: [facility] Address: [address] [place] [address] Performed By: #### 5 7021-8 ####ADK[facility] LABORATORYCLIA [id number] [address] [place] Hemoglobin (Bld) [Mass/Vol] 10.3 g/dL Low 13.0-17.0 [facility] Comment on above: Order Comment: Speci men Type: BLOOD SPECIMENOrdering Facility: [facility] Address: [address] [place] [address] Performed By: #### 5 7021-8 ####[facility] LABORATORYCLIA [id number] [address] Immature granulocytes (Bld) [#/Vol] 0.04 10*3/uL Normal <0.10 [facility] Comment on above: Order Comment: Speci men Type: BLOOD SPECIMENOrdering Facility: [facility] Address: [address] [place] [address] Performed By: #### 5 7021-8 ####AD[facility] LABORATORYCLIA [id number] [address] Immature granulocytes/100 WBC (Bld) 0.6 % [facility] Comment on above: Order Comment: Speci men Type: BLOOD SPECIMENOrdering Facility: [facility] Address: [address] [place] [address] Performed By: #### 5 7021-8 ####[facility] LABORATORYCLIA [id number] [address] [place] Lymphocytes (Bld) [#/Vol] 1.09 10*3/uL Normal 1.00-4.00 [facility] Comment on above: Order Comment: Speci men Type: BLOOD SPECIMENOrdering Facility: [facility] Address: [address] [place] [address] Performed By: #### 5 7021-8 ####ADK[facility] LABORATORYCLIA [id number] [address] Lymphocytes/100 WBC (Bld) 17.4 % [facility] Comment on above: Order Comment: Speci men Type: BLOOD SPECIMENOrdering Facility: [facility] Address: [address] [place] [address] Performed By: #### 5 7021-8 ####[facility] LABORATORYCLIA [id number] [address] MCH (RBC) [Entitic mass] 28.9 pg Normal 26.0-34.0 [facility] Comment on above: Order Comment: Speci men Type: BLOOD SPECIMENOrdering Facility: [facility] Address: [address] [place] [address] Performed By: #### 5 7021-8 ####ADK[facility] LABORATORYCLIA [id number] [address] MCHC (RBC) [Mass/Vol] 32.3 g/dL Normal 30.5-36.0 [facility] Comment on above: Order Comment: Speci men Type: BLOOD SPECIMENOrdering Facility: [facility] Address: [address] [place] [address] Performed By: #### 5 7021-8 ####ADK[facility] LABORATORYCLIA [id number] [place] [address] [place] MCV (RBC) [Entitic vol] 89.4 fL Normal 80.0-100.0 [facility] Comment on above: Order Comment: Speci men Type: BLOOD SPECIMENOrdering Facility: [facility] Address: [address] [place] [address] Performed By: #### 5 7021-8 ####[facility] LABORATORYCLIA [id number] [place] [address] [place] Monocytes (Bld) [#/Vol] 0.61 10*3/uL Normal <0.87 [facility] Comment on above: Order Comment: Speci men Type: BLOOD SPECIMENOrdering Facility: [facility] Address: [address] [place] [address] Performed By: #### 5 7021-8 ####ADK[facility] LABORATORYCLIA [id number] [address] [place] Monocytes/100 WBC (Bld) 9.7 % [facility] Comment on above: Order Comment: Speci men Type: BLOOD SPECIMENOrdering Facility: [facility] Address: [address] [place] [address] Performed By: #### 5 7021-8 ####ADK[facility] LABORATORYCLIA [id number] [place] [address] [place] Neutrophils (Bld) [#/Vol] 4.15 10*3/uL Normal 1.45-7.50 [facility] Comment on above: Order Comment: Speci men Type: BLOOD SPECIMENOrdering Facility: [facility] Address: [address] [place] [address] Performed By: #### 5 7021-8 ####ADK[facility] LABORATORYCLIA [id number] [address] [place] Neutrophils/100 WBC (Bld) 66.3 % [facility] Comment on above: Order Comment: Speci men Type: BLOOD SPECIMENOrdering Facility: [facility] Address: [address] [place] [address] Performed By: #### 5 7021-8 ####ADK[facility] LABORATORYCLIA [id number] [place] [address] [place] Nucleated RBC (Bld) [#/Vol] 10*3/uL Normal <0.01 [facility] Comment on above: Order Comment: Speci men Type: BLOOD SPECIMENOrdering Facility: [facility] Address: [address] [place] [address] Performed By: #### 5 7021-8 ####ADK[facility] LABORATORYCLIA [id number] [place] [address] [place] Nucleated RBC/100 WBC (Bld) [Ratio] 0.0 /100 WBC [facility] Comment on above: Order Comment: Speci men Type: BLOOD SPECIMENOrdering Facility: [facility] Address: [address] [place] [address] Performed By: #### 5 7021-8 ####ADK[facility] LABORATORYCLIA [id number] [place] [address] [place] Platelet mean volume (Bld) [Entitic vol] 9.5 fL Normal 9.0-12.7 [facility] Comment on above: Order Comment: Speci men Type: BLOOD SPECIMENOrdering Facility: [facility] Address: [address] [place] [address] [place] [address] Performed By: #### 5 7021-8 ####[facility] LABORATORYCLIA [id number] [place] [address] [place] Platelets (Bld) [#/Vol] 218 10*3/uL Normal 150-400 [facility] Comment on above: Order Comment: Speci men Type: BLOOD SPECIMENOrdering Facility: [facility] Address: [address] [place] [address] [place] [address] Performed By: #### 5 7021-8 ####[facility] LABORATORYCLIA [id number] [place] [address] [place] RBC (Bld) [#/Vol] 3.57 10*6/uL Low 4.20-6.00 [facility] Comment on above: Order Comment: Speci men Type: BLOOD SPECIMENOrdering Facility: [facility] Address: [address] [place] [address] Performed By: #### 5 7021-8 ####[facility] LABORATORYCLIA [id number] [address] WBC (Bld) [#/Vol] 6.26 10*3/uL Normal 3.70-11.00 [facility] Comment on above: Order Comment: Speci men Type: BLOOD SPECIMENOrdering Facility: [facility] Address: [address] [place] [address] Performed By: #### 5 7021-8 ####[facility] LABORATORYCLIA [id number] [address] CONSULT PROGon 07-17-2024 CONSULT PROG [facility] Comprehensive metabolic 2000 panelon 07-17-2024 Albumin [Mass/Vol] 3.5 g/dL Low 3.9-4.9 [facility] Comment on above: Order Comment: Speci men Type: BLOOD SPECIMENOrdering Facility: [facility] Address: [address] [place] [address] Performed By: #### 2 4323-8 ####[facility] LABORATORYCLIA [id number] [address] ALP [Catalytic activity/Vol] 114 U/L High 38-113 [facility] Comment on above: Order Comment: Speci men Type: BLOOD SPECIMENOrdering Facility: [facility] Address: [address] [place] [address] Performed By: #### 2 4323-8 ####[facility] LABORATORYCLIA [id number] [address] ALT [Catalytic activity/Vol] 10 U/L Normal 10-54 [facility] Comment on above: Order Comment: Speci men Type: BLOOD SPECIMENOrdering Facility: [facility] Address: [address] [place] [address] Performed By: #### 2 4323-8 ####ADK[facility] LABORATORYCLIA [id number] [place] [address] [place] Anion gap [Moles/Vol] 11 mmol/L Normal 8-15 [facility] Comment on above: Order Comment: Speci men Type: BLOOD SPECIMENOrdering Facility: [facility] Address: [address] [place] [address] Performed By: #### 2 4323-8 ####[facility] LABORATORYCLIA [id number] [address] [place] AST [Catalytic activity/Vol] 13 U/L Low 14-40 [facility] Comment on above: Order Comment: Speci men Type: BLOOD SPECIMENOrdering Facility: [facility] Address: [address] [place] [address] Performed By: #### 2 4323-8 ####[facility] LABORATORYCLIA [id number] [address] [place] Bilirubin [Mass/Vol] 0.3 mg/dL Normal 0.2-1.3 [facility] Comment on above: Order Comment: Speci men Type: BLOOD SPECIMENOrdering Facility: [facility] Address: [address] [place] [address] Performed By: #### 2 4323-8 ####[facility] LABORATORYCLIA [id number] [address] [place] Calcium [Mass/Vol] 9.7 mg/dL Normal 8.5-10.2 [facility] Comment on above: Order Comment: Speci men Type: BLOOD SPECIMENOrdering Facility: [facility] Address: [address] [place] [address] Performed By: #### 2 4323-8 ####ADK[facility] LABORATORYCLIA [id number] [place] [address] [place] Chloride [Moles/Vol] 112 mmol/L High 98-107 [facility] Comment on above: Order Comment: Speci men Type: BLOOD SPECIMENOrdering Facility: [facility] Address: [address] [place] [address] Performed By: #### 2 4323-8 ####ADK[facility] LABORATORYCLIA [id number] [place] [address] [place] CO2 [Moles/Vol] 22 mmol/L Normal 22-30 [facility] Comment on above: Order Comment: Luz vaughan Type: BLOOD SPECIMENOrdering Facility: [facility] Address: [address] [place] [address] Performed By: #### 2 4323-8 ####[facility] LABORATORYCLIA [id number] [address] [place] Creatinine [Mass/Vol] 5.50 mg/dL High 0.73-1.22 [facility] Comment on above: Order Comment: Luz vaughan Type: BLOOD SPECIMENOrdering Facility: [facility] Address: [address] [place] [address] Performed By: #### 2 4323-8 ####[facility] LABORATORYCLIA [id number] [address] Creatinine and Glomerular filtration rate.predicted panel (S/P/Bld) 11 mL/min/1.73m??? Low >=60 [facility] Comment on above: Order Comment: Luz vaughan Type: BLOOD SPECIMENOrdering Facility: [facility] Address: [address] [place] [address] Result Comment: Breanne mated Glomerular Filtration Rate [...] Performed By: #### 2 4323-8 ####[facility] LABORATORYCLIA [id number] [address] [place] Glucose [Mass/Vol] 84 mg/dL Normal 74-99 [facility] Comment on above: Order Comment: Brooksjonas vaughan Type: BLOOD SPECIMENOrdering Facility: [facility] Address: [address] [place] [address] Result Comment: The [place] Diabetes [employer] (ADA) provides guidance for cutoff [...] Standards of Medical Care in Diabetes 2016, [place] [employer]. Diabetes Care. 2016.39(Suppl 1). Performed By: #### 2 4323-8 ####[facility] LABORATORYCLIA [id number] [place] [address] [place] Potassium [Moles/Vol] 5.2 mmol/L High 3.7-5.1 [facility] Comment on above: Order Comment: Speci men Type: BLOOD SPECIMENOrdering Facility: [facility] Address: [address] [place] [address] Performed By: #### 2 4323-8 ####[facility] LABORATORYCLIA [id number] [place] [address] [place] Protein [Mass/Vol] 6.3 g/dL Normal 6.3-8.0 [facility] Comment on above: Order Comment: Speci men Type: BLOOD SPECIMENOrdering Facility: [facility] Address: [address] [place] [address] Performed By: #### 2 4323-8 ####ADKINS LABORATORYCLIA [id number] [place] [address] [place] Sodium [Moles/Vol] 145 mmol/L High 136-144 [facility] Comment on above: Order Comment: Speci men Type: BLOOD SPECIMENOrdering Facility: [facility] Address: [address] [place] [address] Performed By: #### 2 4323-8 ####ADKINS LABORATORYCLIA [id number] [place] [address] [place] Urea nitrogen [Mass/Vol] 82 mg/dL High 9-24 [facility] Comment on above: Order Comment: Brooksi men Type: BLOOD SPECIMENOrdering Facility: [facility] Address: [address] [place] [address] Performed By: #### 2 4323-8 ####ADKINS LABORATORYCLIA [id number] [place] [address] [place] NURSING PROGon 07-17-2024 NURSING PROG [facility] NUTRITIONon 07-17-2024 NUTRITION [facility] CASE MANAGEMon 07-16-2024 CASE MANAGEM [facility] CBC W Auto Differential pane l (Bld)on 07-16-2024 Basophils (Bld) [#/Vol] 10*3/uL Normal <0.11 [facility] Comment on above: Order Comment: Speci men Type: BLOOD SPECIMENOrdering Facility: [facility] Address: [address] [place] [address] Performed By: #### 5 7021-8 ####ADKINS LABORATORYCLIA [id number] [place] [address] [place] Basophils/100 WBC (Bld) 0.1 % [facility] Comment on above: Order Comment: Speci men Type: BLOOD SPECIMENOrdering Facility: [facility] Address: [address] [place] [address] Performed By: #### 5 7021-8 ####ADKINS LABORATORYCLIA [id number] [place] [address] [place] Differential cell count method Nom (Bld) Auto [facility] Comment on above: Order Comment: Speci men Type: BLOOD SPECIMENOrdering Facility: [facility] Address: [address] [place] [address] Performed By: #### 5 7021-8 ####ADKINS LABORATORYCLIA [id number] [place] [address] [place] Eosinophils (Bld) [#/Vol] 0.21 10*3/uL Normal <0.46 [facility] Comment on above: Order Comment: Speci men Type: BLOOD SPECIMENOrdering Facility: [facility] Address: [address] [place] [address] Performed By: #### 5 7021-8 ####ADKINS LABORATORYCLIA [id number] [place] [address] [place] Eosinophils/100 WBC (Bld) 3.1 % [facility] Comment on above: Order Comment: Speci men Type: BLOOD SPECIMENOrdering Facility: [facility] Address: [address] [place] [address] Performed By: #### 5 7021-8 ####ADKINS LABORATORYCLIA [id number] [place] [address] [place] Erythrocyte distribution width (RBC) [Ratio] 13.3 % Normal 11.5-15.0 [facility] Comment on above: Order Comment: Speci men Type: BLOOD SPECIMENOrdering Facility: [facility] Address: [address] [place] [address] Performed By: #### 5 7021-8 ####ADKINS LABORATORYCLIA [id number] [place] [address] [place] Hematocrit (Bld) [Volume fraction] 29.1 % Low 39.0-51.0 [facility] Comment on above: Order Comment: Speci men Type: BLOOD SPECIMENOrdering Facility: [facility] Address: [address] [place] [address] Performed By: #### 5 7021-8 ####ADKINS LABORATORYCLIA [id number] [place] [address] [place] Hemoglobin (Bld) [Mass/Vol] 9.2 g/dL Low 13.0-17.0 [facility] Comment on above: Order Comment: Speci men Type: BLOOD SPECIMENOrdering Facility: [facility] Address: [address] [place] [address] Performed By: #### 5 7021-8 ####ADKINS LABORATORYCLIA [id number] [place] [address] [place] Immature granulocytes (Bld) [#/Vol] 0.04 10*3/uL Normal <0.10 [facility] Comment on above: Order Comment: Speci men Type: BLOOD SPECIMENOrdering Facility: [facility] Address: [address] [place] [address] Performed By: #### 5 7021-8 ####ADKINS LABORATORYCLIA [id number] [place] [address] [facility] [place] Immature granulocytes/100 WBC (Bld) 0.6 % [facility] Comment on above: Order Comment: Speci men Type: BLOOD SPECIMENOrdering Facility: [facility] Address: [address] [place] [address] Performed By: #### 5 7021-8 ####ADKINS LABORATORYCLIA [id number] [address] Lymphocytes (Bld) [#/Vol] 0.97 10*3/uL Low 1.00-4.00 [facility] Comment on above: Order Comment: Speci men Type: BLOOD SPECIMENOrdering Facility: [facility] Address: [address] [place] [address] Performed By: #### 5 7021-8 ####ADKINS LABORATORYCLIA [id number] [address] Lymphocytes/100 WBC (Bld) 14.4 % [facility] Comment on above: Order Comment: Speci men Type: BLOOD SPECIMENOrdering Facility: [facility] Address: [address] [place] [address] Performed By: #### 5 7021-8 ####ADKINS LABORATORYCLIA [id number] [address] MCH (RBC) [Entitic mass] 28.4 pg Normal 26.0-34.0 [facility] Comment on above: Order Comment: Speci men Type: BLOOD SPECIMENOrdering Facility: [facility] Address: [address] [place] [address] Performed By: #### 5 7021-8 ####ADKINS LABORATORYCLIA [id number] [address] MCHC (RBC) [Mass/Vol] 31.6 g/dL Normal 30.5-36.0 [facility] Comment on above: Order Comment: Speci men Type: BLOOD SPECIMENOrdering Facility: [facility] Address: [address] [place] [address] Performed By: #### 5 7021-8 ####ADKINS LABORATORYCLIA [id number] [address] MCV (RBC) [Entitic vol] 89.8 fL Normal 80.0-100.0 [facility] Comment on above: Order Comment: Speci men Type: BLOOD SPECIMENOrdering Facility: [facility] Address: [facility] [place] [address] Performed By: #### 5 7021-8 ####ADKINS LABORATORYCLIA [id number] [place] [address] [place] Monocytes (Bld) [#/Vol] 0.81 10*3/uL Normal <0.87 [facility] Comment on above: Order Comment: Speci men Type: BLOOD SPECIMENOrdering Facility: [facility] Address: [address] [place] [address] Performed By: #### 5 7021-8 ####ADKINS LABORATORYCLIA [id number] [address] [place] Monocytes/100 WBC (Bld) 12.0 % [facility] Comment on above: Order Comment: Speci men Type: BLOOD SPECIMENOrdering Facility: [facility] Address: [address] [place] [address] Performed By: #### 5 7021-8 ####ADKINS LABORATORYCLIA [id number] [place] [address] [place] Neutrophils (Bld) [#/Vol] 4.69 10*3/uL Normal 1.45-7.50 [facility] Comment on above: Order Comment: Speci men Type: BLOOD SPECIMENOrdering Facility: [facility] Address: [address] [place] [address] Performed By: #### 5 7021-8 ####ADKINS LABORATORYCLIA [id number] [place] [address] [place] Neutrophils/100 WBC (Bld) 69.8 % [facility] Comment on above: Order Comment: Speci men Type: BLOOD SPECIMENOrdering Facility: [facility] Address: [address] [place] [address] Performed By: #### 5 7021-8 ####ADKINS LABORATORYCLIA [id number] [place] [address] [place] Nucleated RBC (Bld) [#/Vol] 10*3/uL Normal <0.01 [facility] Comment on above: Order Comment: Speci men Type: BLOOD SPECIMENOrdering Facility: [facility] Address: [address] [facility] [place] [address] Performed By: #### 5 7021-8 ####ADKINS LABORATORYCLIA [id number] [place] [address] [place] Nucleated RBC/100 WBC (Bld) [Ratio] 0.0 /100 WBC [facility] Comment on above: Order Comment: Speci men Type: BLOOD SPECIMENOrdering Facility: [facility] Address: [address] [place] [address] Performed By: #### 5 7021-8 ####ADKINS LABORATORYCLIA [id number] [place] [address] [place] Platelet mean volume (Bld) [Entitic vol] 9.2 fL Normal 9.0-12.7 [facility] Comment on above: Order Comment: Speci men Type: BLOOD SPECIMENOrdering Facility: [facility] Address: [address] [place] [address] Performed By: #### 5 7021-8 ####ADKINS LABORATORYCLIA [id number] [place] [address] [place] Platelets (Bld) [#/Vol] 188 10*3/uL Normal 150-400 [facility] Comment on above: Order Comment: Speci men Type: BLOOD SPECIMENOrdering Facility: [facility] Address: [address] [place] [address] Performed By: #### 5 7021-8 ####ADKINS LABORATORYCLIA [id number] [place] [address] [place] RBC (Bld) [#/Vol] 3.24 10*6/uL Low 4.20-6.00 [facility] Comment on above: Order Comment: Speci men Type: BLOOD SPECIMENOrdering Facility: [facility] Address: [address] [place] [address] Performed By: #### 5 7021-8 ####ADKINS LABORATORYCLIA [id number] [place] [address] [place] WBC (Bld) [#/Vol] 6.73 10*3/uL Normal 3.70-11.00 [facility] Comment on above: Order Comment: Speci men Type: BLOOD SPECIMENOrdering Facility: [facility] Address: [address] [place] [address] Performed By: #### 5 7021-8 ####SHANNON LABORATORYCLIA [id number] [place] [address] [place] CNCOon 07-16-2024 CNCO Letter Text [facility] CNDSon 07-16-2024 CNDS [facility] CNPNon 07-16-2024 CNPN Telephone (HCSIND) -- JOSÉ MANUEL ASHTON ([id number]) 1960 M T Date Time Provider Department 07/16/24 CLAUDIA CHOW HCSIND During your visit today, we recorded the following information about you: Maribeth Núñez 07/17/2024 8:44 AM Signed Date/Time: 07/17/2024 8:43 AM Spoke with Janell @ phone #: [phone] - Preferred # for contact: [phone] Have you received help from a home care company in the last 60 days? no Are you agreeable to [facility] services? yes What address will we be seeing you at? [address] [facility] [address] Do you have any upcoming appointments or [...] HTN (hy (more content not included)... Normal [facility] CONSULT PROGon 07-16-2024 CONSULT PROG [facility] Comprehensive metabolic 2000 panelon 07-16-2024 Albumin [Mass/Vol] 3.2 g/dL Low 3.9-4.9 [facility] Comment on above: Order Comment: Speci men Type: BLOOD SPECIMENOrdering Facility: [facility] Address: [address] [place] [address] Performed By: #### 2 4323-8 ####SHANNON LABORATORYCLIA [id number] [place] [address] [place] ALP [Catalytic activity/Vol] 93 U/L Normal 38-113 [facility] Comment on above: Order Comment: Speci men Type: BLOOD SPECIMENOrdering Facility: [facility] Address: [address] [place] [address] Performed By: #### 2 4323-8 ####ADKINS LABORATORYCLIA [id number] [place] [address] [place] ALT [Catalytic activity/Vol] 10 U/L Normal 10-54 [facility] Comment on above: Order Comment: Speci men Type: BLOOD SPECIMENOrdering Facility: [facility] Address: [address] [place] [address] Performed By: #### 2 4323-8 ####ADKINS LABORATORYCLIA [id number] [place] [address] [place] Anion gap [Moles/Vol] 11 mmol/L Normal 8-15 [facility] Comment on above: Order Comment: Speci men Type: BLOOD SPECIMENOrdering Facility: [facility] Address: [address] [place] [address] Performed By: #### 2 4323-8 ####ADKINS LABORATORYCLIA [id number] [place] [address] [place] AST [Catalytic activity/Vol] 10 U/L Low 14-40 [facility] Comment on above: Order Comment: Speci men Type: BLOOD SPECIMENOrdering Facility: [facility] Address: [address] [place] [address] Performed By: #### 2 4323-8 ####ADKINS LABORATORYCLIA [id number] [place] [address] [place] Bilirubin [Mass/Vol] 0.2 mg/dL Normal 0.2-1.3 [facility] Comment on above: Order Comment: Speci men Type: BLOOD SPECIMENOrdering Facility: [facility] Address: [address] [place] [address] Performed By: #### 2 4323-8 ####ADKINS LABORATORYCLIA [id number] [place] [address] [place] Calcium [Mass/Vol] 9.2 mg/dL Normal 8.5-10.2 [facility] Comment on above: Order Comment: Speci men Type: BLOOD SPECIMENOrdering Facility: [facility] Address: [address] [place] [address] Performed By: #### 2 4323-8 ####ADKINS LABORATORYCLIA [id number] [place] [address] [place] Chloride [Moles/Vol] 109 mmol/L High 98-107 [facility] Comment on above: Order Comment: Speci men Type: BLOOD SPECIMENOrdering Facility: [facility] Address: [address] [place] [address] Performed By: #### 2 4323-8 ####ADKINS LABORATORYCLIA [id number] [place] [address] [place] CO2 [Moles/Vol] 24 mmol/L Normal 22-30 [facility] Comment on above: Order Comment: Speci men Type: BLOOD SPECIMENOrdering Facility: [facility] Address: [address] [place] [address] Performed By: #### 2 4323-8 ####ADKINS LABORATORYCLIA [id number] [address] [place] [facility] Creatinine [Mass/Vol] 5.71 mg/dL High 0.73-1.22 [facility] Comment on above: Order Comment: Luz vaughan Type: BLOOD SPECIMENOrdering Facility: [facility] Address: [address] [place] [address] Performed By: #### 2 4323-8 ####ADKINS LABORATORYCLIA [id number] [address] Creatinine and Glomerular filtration rate.predicted panel (S/P/Bld) 10 mL/min/1.73m??? Low >=60 [facility] Comment on above: Order Comment: Luz vaughan Type: BLOOD SPECIMENOrdering Facility: [facility] Address: [address] [place] [address] Result Comment: Breanne mated Glomerular Filtration Rate [...] Performed By: #### 2 4323-8 ####ADKINS LABORATORYCLIA [id number] [address] STATES [facility] Glucose [Mass/Vol] 115 mg/dL High 74-99 [facility] Comment on above: Order Comment: Luz vaughan Type: BLOOD SPECIMENOrdering Facility: [facility] Address: [address] [place] [address] Result Comment: The [place] Diabetes Association (ADA) provides guidance for cutoff [...] Standards of Medical Care in Diabetes 2016, [place] [employer]. Diabetes Care. 2016.39(Suppl 1). Performed By: #### 2 4323-8 ####ADKINS LABORATORYCLIA [id number] [place] [address] [place] Potassium [Moles/Vol] 5.8 mmol/L High 3.7-5.1 [facility] Comment on above: Order Comment: Speci men Type: BLOOD SPECIMENOrdering Facility: [facility] Address: [address] [place] [address] Performed By: #### 2 4323-8 ####ADKINS LABORATORYCLIA [id number] [place] [address] [place] Protein [Mass/Vol] 5.7 g/dL Low 6.3-8.0 [facility] Comment on above: Order Comment: Speci men Type: BLOOD SPECIMENOrdering Facility: [facility] Address: [address] [place] [address] Performed By: #### 2 4323-8 ####ADKINS LABORATORYCLIA [id number] [place] [address] [place] Sodium [Moles/Vol] 144 mmol/L Normal 136-144 [facility] Comment on above: Order Comment: Brooksi men Type: BLOOD SPECIMENOrdering Facility: [facility] Address: [address] [place] [address] Performed By: #### 2 4323-8 ####ADKINS LABORATORYCLIA [id number] [place] [address] [place] Urea nitrogen [Mass/Vol] 82 mg/dL High 9-24 [facility] Comment on above: Order Comment: Brooksi men Type: BLOOD SPECIMENOrdering Facility: [facility] Address: [address] [place] [address] Performed By: #### 2 4323-8 ####ADKINS LABORATORYCLIA [id number] [place] [address] [place] THERAPY NTon 07-16-2024 THERAPY NT [facility] CASE MANAGEMon 07-15-2024 CASE MANAGEM [facility] CBC W Auto Differential pane l (Bld)on 07-15-2024 Basophils (Bld) [#/Vol] 10*3/uL Normal <0.11 [facility] Comment on above: Order Comment: Speci men Type: BLOOD SPECIMENOrdering Facility: [facility] Address: [address] [place] [address] Performed By: #### 5 7021-8 ####ADKINS LABORATORYCLIA [id number] [place] [address] [place] Basophils/100 WBC (Bld) 0.0 % [facility] Comment on above: Order Comment: Speci men Type: BLOOD SPECIMENOrdering Facility: [facility] Address: [address] [place] [address] Performed By: #### 5 7021-8 ####ADKINS LABORATORYCLIA [id number] [place] [address] [place] Differential cell count method Nom (Bld) Auto [facility] Comment on above: Order Comment: Speci men Type: BLOOD SPECIMENOrdering Facility: [facility] Address: [address] [place] [address] Performed By: #### 5 7021-8 ####ADKINS LABORATORYCLIA [id number] [place] [address] [place] Eosinophils (Bld) [#/Vol] 0.10 10*3/uL Normal <0.46 [facility] Comment on above: Order Comment: Speci men Type: BLOOD SPECIMENOrdering Facility: [facility] Address: [address] [place] [address] Performed By: #### 5 7021-8 ####ADKINS LABORATORYCLIA [id number] [place] [address] [place] Eosinophils/100 WBC (Bld) 1.7 % [facility] Comment on above: Order Comment: Speci men Type: BLOOD SPECIMENOrdering Facility: [facility] Address: [address] [place] [address] Performed By: #### 5 7021-8 ####ADKINS LABORATORYCLIA [id number] [address] Erythrocyte distribution width (RBC) [Ratio] 13.5 % Normal 11.5-15.0 [facility] Comment on above: Order Comment: Speci men Type: BLOOD SPECIMENOrdering Facility: [facility] Address: [address] [place] [address] Performed By: #### 5 7021-8 ####ADKINS LABORATORYCLIA [id number] [address] [place] Hematocrit (Bld) [Volume fraction] 30.0 % Low 39.0-51.0 [facility] Comment on above: Order Comment: Speci men Type: BLOOD SPECIMENOrdering Facility: [facility] Address: [address] [place] [address] Performed By: #### 5 7021-8 ####ADKINS LABORATORYCLIA [id number] [address] [place] Hemoglobin (Bld) [Mass/Vol] 9.6 g/dL Low 13.0-17.0 [facility] Comment on above: Order Comment: Speci men Type: BLOOD SPECIMENOrdering Facility: [facility] Address: [address] [place] [address] Performed By: #### 5 7021-8 ####ADKINS LABORATORYCLIA [id number] [address] [place] Immature granulocytes (Bld) [#/Vol] 0.03 10*3/uL Normal <0.10 [facility] Comment on above: Order Comment: Speci men Type: BLOOD SPECIMENOrdering Facility: [facility] Address: [address] [place] [address] Performed By: #### 5 7021-8 ####ADKINS LABORATORYCLIA [id number] [address] Immature granulocytes/100 WBC (Bld) 0.5 % [facility] Comment on above: Order Comment: Speci men Type: BLOOD SPECIMENOrdering Facility: [facility] Address: [address] [place] [address] Performed By: #### 5 7021-8 ####ADKINS LABORATORYCLIA [id number] [address] [place] Lymphocytes (Bld) [#/Vol] 1.09 10*3/uL Normal 1.00-4.00 [facility] Comment on above: Order Comment: Speci men Type: BLOOD SPECIMENOrdering Facility: [facility] Address: [address] [place] [address] Performed By: #### 5 7021-8 ####ADKINS LABORATORYCLIA [id number] [address] Lymphocytes/100 WBC (Bld) 19.1 % [facility] Comment on above: Order Comment: Speci men Type: BLOOD SPECIMENOrdering Facility: [facility] Address: [address] [place] [address] Performed By: #### 5 7021-8 ####ADKINS LABORATORYCLIA [id number] [address] MCH (RBC) [Entitic mass] 28.8 pg Normal 26.0-34.0 [facility] Comment on above: Order Comment: Speci men Type: BLOOD SPECIMENOrdering Facility: [facility] Address: [address] [place] [address] Performed By: #### 5 7021-8 ####ADKINS LABORATORYCLIA [id number] [address] MCHC (RBC) [Mass/Vol] 32.0 g/dL Normal 30.5-36.0 [facility] Comment on above: Order Comment: Speci men Type: BLOOD SPECIMENOrdering Facility: [facility] Address: [address] [place] [address] Performed By: #### 5 7021-8 ####ADKINS LABORATORYCLIA [id number] [address] MCV (RBC) [Entitic vol] 90.1 fL Normal 80.0-100.0 [facility] Comment on above: Order Comment: Speci men Type: BLOOD SPECIMENOrdering Facility: [facility] Address: [address] [place] [address] Performed By: #### 5 7021-8 ####ADKINS LABORATORYCLIA [id number] [place] [address] [place] Monocytes (Bld) [#/Vol] 0.67 10*3/uL Normal <0.87 [facility] Comment on above: Order Comment: Speci men Type: BLOOD SPECIMENOrdering Facility: [facility] Address: [address] [place] [address] Performed By: #### 5 7021-8 ####ADKINS LABORATORYCLIA [id number] [address] [place] Monocytes/100 WBC (Bld) 11.7 % [facility] Comment on above: Order Comment: Speci men Type: BLOOD SPECIMENOrdering Facility: [facility] Address: [address] [place] [address] Performed By: #### 5 7021-8 ####ADKINS LABORATORYCLIA [id number] [place] [address] [place] Neutrophils (Bld) [#/Vol] 3.83 10*3/uL Normal 1.45-7.50 [facility] Comment on above: Order Comment: Speci men Type: BLOOD SPECIMENOrdering Facility: [facility] Address: [address] [place] [address] Performed By: #### 5 7021-8 ####ADKINS LABORATORYCLIA [id number] [place] [address] [place] Neutrophils/100 WBC (Bld) 67.0 % [facility] Comment on above: Order Comment: Speci men Type: BLOOD SPECIMENOrdering Facility: [facility] Address: [address] [place] [address] Performed By: #### 5 7021-8 ####ADKINS LABORATORYCLIA [id number] [place] [address] [place] Nucleated RBC (Bld) [#/Vol] 10*3/uL Normal <0.01 [facility] Comment on above: Order Comment: Speci men Type: BLOOD SPECIMENOrdering Facility: [facility] Address: [address] [place] [address] Performed By: #### 5 7021-8 ####ADKINS LABORATORYCLIA [id number] [place] [address] [place] Nucleated RBC/100 WBC (Bld) [Ratio] 0.0 /100 WBC [facility] Comment on above: Order Comment: Speci men Type: BLOOD SPECIMENOrdering Facility: [facility] Address: [address] [place] [address] Performed By: #### 5 7021-8 ####ADKINS LABORATORYCLIA [id number] [place] [address] [place] Platelet mean volume (Bld) [Entitic vol] 9.5 fL Normal 9.0-12.7 [facility] Comment on above: Order Comment: Speci men Type: BLOOD SPECIMENOrdering Facility: [facility] Address: [address] [place] [address] Performed By: #### 5 7021-8 ####ADKINS LABORATORYCLIA [id number] [place] [address] [place] Platelets (Bld) [#/Vol] 214 10*3/uL Normal 150-400 [facility] Comment on above: Order Comment: Speci men Type: BLOOD SPECIMENOrdering Facility: [facility] Address: [address] [place] [address] Performed By: #### 5 7021-8 ####ADKINS LABORATORYCLIA [id number] [place] [address] [place] RBC (Bld) [#/Vol] 3.33 10*6/uL Low 4.20-6.00 [facility] Comment on above: Order Comment: Speci men Type: BLOOD SPECIMENOrdering Facility: [facility] Address: [address] [place] [address] Performed By: #### 5 7021-8 ####ADKINS LABORATORYCLIA [id number] [place] [address] [place] WBC (Bld) [#/Vol] 5.72 10*3/uL Normal 3.70-11.00 [facility] Comment on above: Order Comment: Speci men Type: BLOOD SPECIMENOrdering Facility: [facility] Address: [facility] [place] [address] Performed By: #### 5 7021-8 ####SHANNON LABORATORYCLIA [id number] [place], [place] [id number] [place] [address] [place] CONSULT PROGon 07-15-2024 CONSULT PROG [facility] Magnesium SerPl-mCncon 07-15 Magnesium [Mass/Vol] 2.2 mg/dL Normal 1.7-2.3 [facility] Comment on above: Order Comment: Speci men Type: BLOOD SPECIMENOrdering Facility: [facility] Address: [facility] [place] [address] Performed By: #### 2 4362-6, 26700-7 ####ADKINS LABORATORYCLIA [id number] [place] [id number] [place] Renal function 2000 panelon 07-15-2024 Albumin [Mass/Vol] 3.1 g/dL Low 3.9-4.9 [facility] Comment on above: Order Comment: Speci men Type: BLOOD SPECIMENOrdering Facility: [facility] Address: [facility] [place] [address] Performed By: #### 2 4362-6, ####ADKINS LABORATORYCLIA [id number] [place] [id number] [place] Anion gap [Moles/Vol] 13 mmol/L Normal 8-15 [facility] Comment on above: Order Comment: Speci men Type: BLOOD SPECIMENOrdering Facility: [facility] Address: [address] [place], [place] [address] [address] Performed By: #### 2 4362-6, ####ADKINS LABORATORYCLIA [id number] [place] [id number] [place] Calcium [Mass/Vol] 8.8 mg/dL Normal 8.5-10.2 [facility] Comment on above: Order Comment: Speci men Type: BLOOD SPECIMENOrdering Facility: [facility] Address: [address] [place], [place] [address] [address] Performed By: #### 2 4362-6, ####ADKINS LABORATORYCLIA [id number] [place] [address] [place] Chloride [Moles/Vol] 108 mmol/L High 98-107 [facility] Comment on above: Order Comment: Luz vaughan Type: BLOOD SPECIMENOrdering Facility: [facility] Address: [address] [place] [address] Performed By: #### 2 4362-6, ####ADKINS LABORATORYCLIA [id number] [place] [id number] [place] CO2 [Moles/Vol] 24 mmol/L Normal 22-30 [facility] Comment on above: Order Comment: Luz vaughan Type: BLOOD SPECIMENOrdering Facility: [facility] Address: [address] [place] [address] Performed By: #### 2 4362-6, ####ADKINS LABORATORYCLIA [id number] [place] [address] [place] Creatinine [Mass/Vol] 5.17 mg/dL High 0.73-1.22 [facility] Comment on above: Order Comment: Luz vaughan Type: BLOOD SPECIMENOrdering Facility: [facility] Address: [address] [place] [address] Performed By: #### 2 4362-6, ####ADKINS LABORATORYCLIA [id number] [address] Creatinine and Glomerular filtration rate.predicted panel (S/P/Bld) 12 mL/min/1.73m??? Low >=60 [facility] Comment on above: Order Comment: Luz vaughan Type: BLOOD SPECIMENOrdering Facility: [facility] Address: [address] [place] [address] Result Comment: Breanne mated Glomerular Filtration Rate [...] Performed By: #### 2 4362-6, ####ADKINS LABORATORYCLIA [id number] [place] [id number] [place] Glucose [Mass/Vol] 160 mg/dL High 74-99 [facility] Comment on above: Order Comment: Luz vaughan Type: BLOOD SPECIMENOrdering Facility: [facility] Address: [address] [place], [place] [address] Result Comment: The [place] Diabetes Association (ADA) provides guidance for cutoff [...] Standards of Medical Care in Diabetes 2016, [place] [employer]. Diabetes Care. 2016.39(Suppl 1). Performed By: #### 2 4362-6, ####ADKINS LABORATORYCLIA [id number] [place] [id number] [place] Phosphate [Mass/Vol] 6.6 mg/dL High 2.7-4.8 [facility] Comment on above: Order Comment: Luz vaughan Type: BLOOD SPECIMENOrdering Facility: [facility] Address: [address] [place] [address] Performed By: #### 2 4362-6, ####ADKINS LABORATORYCLIA [id number] [place] [address] [place] Potassium [Moles/Vol] 5.3 mmol/L High 3.7-5.1 [facility] Comment on above: Order Comment: Luz vaughan Type: BLOOD SPECIMENOrdering Facility: [facility] Address: [address] [place] [address] Performed By: #### 2 4362-6, ####ADKINS LABORATORYCLIA [id number] [place] [address] [place] Sodium [Moles/Vol] 145 mmol/L High 136-144 [facility] Comment on above: Order Comment: Speci men Type: BLOOD SPECIMENOrdering Facility: [facility] Address: [address] [place] [address] Performed By: #### 2 4362-6, ####ADKINS LABORATORYCLIA [id number] [place] [id number] [place] Urea nitrogen [Mass/Vol] 79 mg/dL High 9-24 [facility] Comment on above: Order Comment: Speci men Type: BLOOD SPECIMENOrdering Facility: [facility] Address: [address] [place] [address] Performed By: #### 2 4362-6, ####ADKINS LABORATORYCLIA [id number] [place] [address] [place] ALLIED HEALTHon 07-14-2024 ALLIED HEALTH Normal [facility] Albumin SerPl-mCncon 025 Albumin [Mass/Vol] 3.0 g/dL Low 3.9-4.9 [facility] Comment on above: Order Comment: Speci men Type: BLOOD SPECIMENOrdering Facility: [facility] Address: [address] [place] [address] Performed By: #### 1 751-7, 3040-3, 93624-9, 13336-9, 2777-1, ####ADKINS LABORATORYCLIA [id number] [place] [id number] [place] Basic metabolic 2000 panelon 07-14-2024 Anion gap [Moles/Vol] 13 mmol/L Normal 8-15 [facility] Comment on above: Order Comment: Speci men Type: BLOOD SPECIMENOrdering Facility: [facility] Address: [address] [place] [address] Performed By: #### 1 751-7, 3040-3, 94033-8, 94163-3, 2777-1, ####ADKINS LABORATORYCLIA [id number] [place] [address] [place] Calcium [Mass/Vol] 8.8 mg/dL Normal 8.5-10.2 [facility] Comment on above: Order Comment: Speci men Type: BLOOD SPECIMENOrdering Facility: [facility] Address: [address] [place] [address] Performed By: #### 1 751-7, 3040-3, 30277-6, 39826-4, 2777-1, 31740-4 ####SHANNON LABORATORYCLIA [id number] [place] [address] [place] Chloride [Moles/Vol] 105 mmol/L Normal 98-107 [facility] Comment on above: Order Comment: Speci men Type: BLOOD SPECIMENOrdering Facility: [facility] Address: [address] [place] [address] Performed By: #### 1 751-7, 3040-3, 97081-1, 95788-4, 2777-1, 11979-6 ####SHANNON LABORATORYCLIA [id number] [place] [address] [place] CO2 [Moles/Vol] 24 mmol/L Normal 22-30 [facility] Comment on above: Order Comment: Speci men Type: BLOOD SPECIMENOrdering Facility: [facility] Address: [address] [place] [address] Performed By: #### 1 751-7, 3040-3, 83653-4, 25469-7, 2777-1, 39431-1 ####SHANNON LABORATORYCLIA [id number] [place] [id number] [place] Creatinine [Mass/Vol] 5.34 mg/dL High 0.73-1.22 [facility] Comment on above: Order Comment: Speci men Type: BLOOD SPECIMENOrdering Facility: [facility] Address: [address] [place] [address] Performed By: #### 1 751-7, 3040-3, 94189-4, 63752-3, 2777-1, 22802-2 ####SHANNON LABORATORYCLIA [id number] [address] Creatinine and Glomerular filtration rate.predicted panel (S/P/Bld) 11 mL/min/1.73m??? Low >=60 [facility] Comment on above: Order Comment: Luz vaughan Type: BLOOD SPECIMENOrdering Facility: [facility] Address: [address] [place] [address] Result Comment: Breanne mated Glomerular Filtration Rate [...] GFR. Performed By: #### 1 751-7, 3040-3, 14514-0, 06658-4, 2777-1, 40427-6 ####SHANNON LABORATORYCLIA [id number] [address] Glucose [Mass/Vol] 59 mg/dL Low 74-99 [facility] Comment on above: Order Comment: Luz vaughan Type: BLOOD SPECIMENOrdering Facility: [facility] Address: [address] [place] [address] Result Comment: The [place] Diabetes Association (ADA) provides guidance for cutoff [...] Standards of Medical Care in Diabetes 2016, [place] [employer]. Diabetes Care. 2016.39(Suppl 1). Performed By: #### 1 751-7, 3040-3, 02211-7, 18670-4, 2777-1, 37922-2 ####SHANNON LABORATORYCLIA [id number] [place] [id number] [place] Potassium [Moles/Vol] 4.7 mmol/L Normal 3.7-5.1 [facility] Comment on above: Order Comment: Speci men Type: BLOOD SPECIMENOrdering Facility: [facility] Address: [address] [place] [address] Performed By: #### 1 751-7, 3040-3, 78860-2, 80430-1, 2777-1, 32289-4 ####SHANNON LABORATORYCLIA [id number] [address] STATES OF [facility] Sodium [Moles/Vol] 142 mmol/L Normal 136-144 [facility] Comment on above: Order Comment: Speci men Type: BLOOD SPECIMENOrdering Facility: [facility] Address: [address] [place] [address] Performed By: #### 1 751-7, 3040-3, 11171-9, 98083-0, 2777-1, 25049-7 ####SHANNON LABORATORYCLIA [id number] [place] [address] [place] Urea nitrogen [Mass/Vol] 71 mg/dL High 9-24 [facility] Comment on above: Order Comment: Speci men Type: BLOOD SPECIMENOrdering Facility: [facility] Address: [address] [place] [address] Performed By: #### 1 751-7, 3040-3, 46214-6, 60968-7, 2777-1, 10018-2 ####SHANNON LABORATORYCLIA [id number] [address] [place] CBC W Auto Differential pane l (Bld)on 07-14-2024 Basophils (Bld) [#/Vol] 10*3/uL Normal <0.11 [facility] Comment on above: Order Comment: Speci men Type: BLOOD SPECIMENOrdering Facility: [facility] Address: [address] [place] [address] Performed By: #### 5 7021-8 ####SHANNON LABORATORYCLIA [id number] [address] Basophils/100 WBC (Bld) 0.2 % [facility] Comment on above: Order Comment: Speci men Type: BLOOD SPECIMENOrdering Facility: [facility] Address: [address] [place] [address] Performed By: #### 5 7021-8 ####ADKINS LABORATORYCLIA [id number] [place] [address] [place] Differential cell count method Nom (Bld) Auto [facility] Comment on above: Order Comment: Speci men Type: BLOOD SPECIMENOrdering Facility: [facility] Address: [address] [place] [address] Performed By: #### 5 7021-8 ####ADKINS LABORATORYCLIA [id number] [place] [address] [place] Eosinophils (Bld) [#/Vol] 0.10 10*3/uL Normal <0.46 [facility] Comment on above: Order Comment: Speci men Type: BLOOD SPECIMENOrdering Facility: [facility] Address: [address] [place] [address] Performed By: #### 5 7021-8 ####ADKINS LABORATORYCLIA [id number] [place] [address] [place] Eosinophils/100 WBC (Bld) 2.2 % [facility] Comment on above: Order Comment: Speci men Type: BLOOD SPECIMENOrdering Facility: [facility] Address: [address] [place] [address] Performed By: #### 5 7021-8 ####ADKNIS LABORATORYCLIA [id number] [place] [address] [place] Erythrocyte distribution width (RBC) [Ratio] 13.3 % Normal 11.5-15.0 [facility] Comment on above: Order Comment: Speci men Type: BLOOD SPECIMENOrdering Facility: [facility] Address: [address] [place] [address] Performed By: #### 5 7021-8 ####ADKINS LABORATORYCLIA [id number] [place] [address] [place] Hematocrit (Bld) [Volume fraction] 29.8 % Low 39.0-51.0 [facility] Comment on above: Order Comment: Speci men Type: BLOOD SPECIMENOrdering Facility: [facility] Address: [address] [place] [address] Performed By: #### 5 7021-8 ####ADKINS LABORATORYCLIA [id number] [place] [address] [place] Hemoglobin (Bld) [Mass/Vol] 9.6 g/dL Low 13.0-17.0 [facility] Comment on above: Order Comment: Speci men Type: BLOOD SPECIMENOrdering Facility: [facility] Address: [address] [place] [address] Performed By: #### 5 7021-8 ####ADKINS LABORATORYCLIA [id number] [place] [address] [place] Immature granulocytes (Bld) [#/Vol] 0.03 10*3/uL Normal <0.10 [facility] Comment on above: Order Comment: Speci men Type: BLOOD SPECIMENOrdering Facility: [facility] Address: [address] [place] [address] Performed By: #### 5 7021-8 ####ADKINS LABORATORYCLIA [id number] [address] [place] Immature granulocytes/100 WBC (Bld) 0.7 % [facility] Comment on above: Order Comment: Speci men Type: BLOOD SPECIMENOrdering Facility: [facility] Address: [address] [place] [address] Performed By: #### 5 7021-8 ####ADKINS LABORATORYCLIA [id number] [place] [address] [place] Lymphocytes (Bld) [#/Vol] 1.15 10*3/uL Normal 1.00-4.00 [facility] Comment on above: Order Comment: Speci men Type: BLOOD SPECIMENOrdering Facility: [facility] Address: [address] [place] [address] Performed By: #### 5 7021-8 ####ADKINS LABORATORYCLIA [id number] [address] [place] Lymphocytes/100 WBC (Bld) 25.3 % [facility] Comment on above: Order Comment: Speci men Type: BLOOD SPECIMENOrdering Facility: [facility] Address: [address] [place] [address] Performed By: #### 5 7021-8 ####ADKINS LABORATORYCLIA [id number] [address] MCH (RBC) [Entitic mass] 28.4 pg Normal 26.0-34.0 [facility] Comment on above: Order Comment: Speci men Type: BLOOD SPECIMENOrdering Facility: [facility] Address: [address] [place] [address] Performed By: #### 5 7021-8 ####ADKINS LABORATORYCLIA [id number] [address] MCHC (RBC) [Mass/Vol] 32.2 g/dL Normal 30.5-36.0 [facility] Comment on above: Order Comment: Speci men Type: BLOOD SPECIMENOrdering Facility: [facility] Address: [address] [place] [address] Performed By: #### 5 7021-8 ####ADKINS LABORATORYCLIA [id number] [address] MCV (RBC) [Entitic vol] 88.2 fL Normal 80.0-100.0 [facility] Comment on above: Order Comment: Speci men Type: BLOOD SPECIMENOrdering Facility: [facility] Address: [address] [place] [address] Performed By: #### 5 7021-8 ####ADKINS LABORATORYCLIA [id number] [address] Monocytes (Bld) [#/Vol] 0.45 10*3/uL Normal <0.87 [facility] Comment on above: Order Comment: Speci men Type: BLOOD SPECIMENOrdering Facility: [facility] Address: [address] [place] [address] Performed By: #### 5 7021-8 ####ADKINS LABORATORYCLIA [id number] [place] [address] [place] Monocytes/100 WBC (Bld) 9.9 % [facility] Comment on above: Order Comment: Speci men Type: BLOOD SPECIMENOrdering Facility: [facility] Address: [address] [place] [address] Performed By: #### 5 7021-8 ####ADKINS LABORATORYCLIA [id number] [place] [address] [place] Neutrophils (Bld) [#/Vol] 2.80 10*3/uL Normal 1.45-7.50 [facility] Comment on above: Order Comment: Speci men Type: BLOOD SPECIMENOrdering Facility: [facility] Address: [address] [place] [address] Performed By: #### 5 7021-8 ####ADKINS LABORATORYCLIA [id number] [place] [address] [place] Neutrophils/100 WBC (Bld) 61.7 % [facility] Comment on above: Order Comment: Speci men Type: BLOOD SPECIMENOrdering Facility: [facility] Address: [address] [place] [address] Performed By: #### 5 7021-8 ####ADKINS LABORATORYCLIA [id number] [place] [address] [place] Nucleated RBC (Bld) [#/Vol] 10*3/uL Normal <0.01 [facility] Comment on above: Order Comment: Speci men Type: BLOOD SPECIMENOrdering Facility: [facility] Address: [address] [place] [address] Performed By: #### 5 7021-8 ####ADKINS LABORATORYCLIA [id number] [place] [address] [place] Nucleated RBC/100 WBC (Bld) [Ratio] 0.0 /100 WBC [facility] Comment on above: Order Comment: Speci men Type: BLOOD SPECIMENOrdering Facility: [facility] Address: [address] [place] [address] Performed By: #### 5 7021-8 ####ADKINS LABORATORYCLIA [id number] [place] [address] [place] Platelet mean volume (Bld) [Entitic vol] 9.6 fL Normal 9.0-12.7 [facility] Comment on above: Order Comment: Speci men Type: BLOOD SPECIMENOrdering Facility: [facility] Address: [address] [place] [address] [place] [address] Performed By: #### 5 7021-8 ####ADKINS LABORATORYCLIA [id number] [place] [address] [place] Platelets (Bld) [#/Vol] 230 10*3/uL Normal 150-400 [facility] Comment on above: Order Comment: Speci men Type: BLOOD SPECIMENOrdering Facility: [facility] Address: [address] [place] [address] Performed By: #### 5 7021-8 ####SHANNON LABORATORYCLIA [id number] [place] [address] [place] RBC (Bld) [#/Vol] 3.38 10*6/uL Low 4.20-6.00 [facility] Comment on above: Order Comment: Speci men Type: BLOOD SPECIMENOrdering Facility: [facility] Address: [address] [place] [address] Performed By: #### 5 7021-8 ####SHANNON LABORATORYCLIA [id number] [place] [address] [place] WBC (Bld) [#/Vol] 4.54 10*3/uL Normal 3.70-11.00 [facility] Comment on above: Order Comment: Speci men Type: BLOOD SPECIMENOrdering Facility: [facility] Address: [address] [place] [address] Performed By: #### 5 7021-8 ####SHANNON LABORATORYCLIA [id number] [place] [address] [place] CONSULT PROGon 07-14-2024 CONSULT PROG [facility] ABD/PEL WO IVCONon 2024 CT ABD/PEL WO IVCON Normal [facility] Hepatic function 2000 panelo n 07-14-2024 ALP [Catalytic activity/Vol] 65 U/L Normal 38-113 [facility] Comment on above: Order Comment: Speci men Type: BLOOD SPECIMENOrdering Facility: [facility] Address: [address] [place] [address] Performed By: #### 1 751-7, 3040-3, 60064-3, 90456-8, 2777-1, 82738-5 ####ADKINS LABORATORYCLIA [id number] [place] [address] [place] ALT [Catalytic activity/Vol] 9 U/L Low 10-54 [facility] Comment on above: Order Comment: Speci men Type: BLOOD SPECIMENOrdering Facility: [facility] Address: [address] [place] [address] Performed By: #### 1 751-7, 3040-3, 46278-8, 40538-0, 2777-1, ####ADKINS LABORATORYCLIA [id number] [address] [place] AST [Catalytic activity/Vol] 13 U/L Low 14-40 [facility] Comment on above: Order Comment: Speci men Type: BLOOD SPECIMENOrdering Facility: [facility] Address: [address] [place] [address] Performed By: #### 1 751-7, 3040-3, 86709-1, 42221-4, 277-1, ####ADKINS LABORATORYCLIA [id number] [place] [address] [place] Bilirubin [Mass/Vol] 0.2 mg/dL Normal 0.2-1.3 [facility] Comment on above: Order Comment: Speci men Type: BLOOD SPECIMENOrdering Facility: [facility] Address: [address] [place] [address] Performed By: #### 1 751-7, 3040-3, 93458-6, 97289-1, 2777-1, ####ADKINS LABORATORYCLIA [id number] [address] Bilirubin.conjugated [Mass/Vol] mg/dL Normal <0.3 [facility] Comment on above: Order Comment: Speci men Type: BLOOD SPECIMENOrdering Facility: [facility] Address: [address] [place], [place] [address] Performed By: #### 1 751-7, 3040-3, 68985-3, 87903-9, 2777-1, ####SHANNON LABORATORYCLIA [id number] [place] [address] [place] Protein [Mass/Vol] 5.5 g/dL Low 6.3-8.0 [facility] Comment on above: Order Comment: Speci men Type: BLOOD SPECIMENOrdering Facility: [facility] Address: [address] [place] [address] Performed By: #### 1 751-7, 3040-3, 29710-3, 65157-0, 2776-1, ####SHANNON LABORATORYCLIA [id number] [place] [address] [place] Lipase SerPl-cCncon 07-15-19 25 Lipase [Catalytic activity/Vol] 12 U/L Low 16-61 [facility] Comment on above: Order Comment: Speci men Type: BLOOD SPECIMENOrdering Facility: [facility] Address: [address] [place] [address] Performed By: #### 1 751-7, 3040-3, 11345-6, 85057-6, 2776-1, ####SHANNON LABORATORYCLIA [id number] [place] [address] [place] Magnesium SerPl-mCncon 07-14 Magnesium [Mass/Vol] 2.0 mg/dL Normal 1.7-2.3 [facility] Comment on above: Order Comment: Speci men Type: BLOOD SPECIMENOrdering Facility: [facility] Address: [address] [place] [address] Performed By: #### 1 751-7, 3040-3, 80959-9, 42764-9, 2776-1, ####SHANNON LABORATORYCLIA [id number] [place] [address] [place] NURSING PROGon 07-14-2024 NURSING PROG [facility] Phosphate SerPl-mCncon 07-14 Phosphate [Mass/Vol] 7.4 mg/dL High 2.7-4.8 [facility] Comment on above: Order Comment: Speci men Type: BLOOD SPECIMENOrdering Facility: [facility] Address: [address] [place] [address] Performed By: #### 1 751-7, 3040-3, 68588-2, 75827-9, 2777-1, 51695-6 ####SHANNON LABORATORYCLIA [id number] [place] [address] [place] Albumin [facility] Foundationon 025 Albumin [Mass/Vol] 3.1 g/dL Low 3.9-4.9 [facility] Comment on above: Order Comment: Speci men Type: BLOOD SPECIMENOrdering Facility: [facility] Address: [address] [place] [address] Performed By: #### 2 777-1, 175-7, 26948-3, 91531-0 ####SHANNON LABORATORYCLIA [id number] [place] [address] [place] Basic metabolic 2000 panelon 07-13-2024 Anion gap [Moles/Vol] 10 mmol/L Normal 8-15 [facility] Comment on above: Order Comment: Speci men Type: BLOOD SPECIMENOrdering Facility: [facility] Address: [address] [place] [address] Performed By: #### 2 777-1, 175-7, 48527-0, 33519-1 ####SHANNON LABORATORYCLIA [id number] [place] [address] [place] Calcium [Mass/Vol] 9.1 mg/dL Normal 8.5-10.2 [facility] Comment on above: Order Comment: Speci men Type: BLOOD SPECIMENOrdering Facility: [facility] Address: [address] [place] [address] Performed By: #### 2 777-1, 175-7, 23036-4, 44543-5 ####SHANNON LABORATORYCLIA [id number] [place] [address] [facility] [place] Chloride [Moles/Vol] 108 mmol/L High 98-107 [facility] Comment on above: Order Comment: Luz vaughan Type: BLOOD SPECIMENOrdering Facility: [facility] Address: [facility] [place] [address] Performed By: #### 2 777-1, 7, 52107-4, 61136-6 ####SHANNON LABORATORYCLIA [id number] [place] [address] [place] CO2 [Moles/Vol] 24 mmol/L Normal 22-30 [facility] Comment on above: Order Comment: Brooksi men Type: BLOOD SPECIMENOrdering Facility: [facility] Address: [address] [place] [address] Performed By: #### 2 777-1, 1750-10, 47722-6, 81873-5 ####SHANNON LABORATORYCLIA [id number] [address] [place] Creatinine [Mass/Vol] 5.30 mg/dL High 0.73-1.22 [facility] Comment on above: Order Comment: Luz vaughan Type: BLOOD SPECIMENOrdering Facility: [facility] Address: [address] [place] [address] Performed By: #### 2 777-1, 1750-10, 97832-8, 68675-4 ####SHANNON LABORATORYCLIA [id number] [place] [address] [facility] Creatinine and Glomerular filtration rate.predicted panel (S/P/Bld) 11 mL/min/1.73m??? Low >=60 [facility] Comment on above: Order Comment: Luz vaughan Type: BLOOD SPECIMENOrdering Facility: [facility] Address: [address] [place] [address] Result Comment: Breanne mated Glomerular Filtration Rate [...] GFR. Performed By: #### 2 777-1, 1757, 59598-3, ####ADKINS LABORATORYCLIA [id number] [place] [address] [place] Glucose [Mass/Vol] 66 mg/dL Low 74-99 [facility] Comment on above: Order Comment: Luz clement Type: BLOOD SPECIMENOrdering Facility: [facility] Address: [address] [place] [address] Result Comment: The [place] Diabetes [employer] (ADA) provides guidance for cutoff [...] Standards of Medical Care in Diabetes 2016, [place] [employer]. Diabetes Care. 2016.39(Suppl 1). Performed By: #### 2 777-1, 1750-10, , ####ADKINS LABORATORYCLIA [id number] [place] [address] [place] Potassium [Moles/Vol] 4.5 mmol/L Normal 3.7-5.1 [facility] Comment on above: Order Comment: Luz men Type: BLOOD SPECIMENOrdering Facility: [facility] Address: [address] [place] [address] Performed By: #### 2 777-1, 1757, 19464-4, ####ADKINS LABORATORYCLIA [id number] [place] [address] [place] Sodium [Moles/Vol] 142 mmol/L Normal 136-144 [facility] Comment on above: Order Comment: Luz clement Type: BLOOD SPECIMENOrdering Facility: [facility] Address: [address] [place], [place] [id number] Performed By: #### 2 777-1, 7, 33293-1, ####[facility] LABORATORYCLIA [id number] [place] [address] [place] [facility] Urea nitrogen [Mass/Vol] 74 mg/dL High 9-24 [facility] Comment on above: Order Comment: Speci men Type: BLOOD SPECIMENOrdering Facility: [facility] Address: [address] [place] [address] Performed By: #### 2 777-1, 1750-10, 31510-0, ####[facility] LABORATORYCLIA [id number] [address] [place] [facility] CBC W Auto Differential pane l (Bld)on 07-13-2024 Basophils (Bld) [#/Vol] 10*3/uL Normal <0.11 [facility] Comment on above: Order Comment: Speci men Type: BLOOD SPECIMENOrdering Facility: [facility] Address: [address] [place] [address] Performed By: #### 5 7021-8 ####ADK[facility] LABORATORYCLIA [id number] [address] [place] [facility] Basophils/100 WBC (Bld) 0.2 % Normal [facility] Comment on above: Order Comment: Speci men Type: BLOOD SPECIMENOrdering Facility: [facility] Address: [address] [place] [address] Performed By: #### 5 7021-8 ####DAKINS LABORATORYCLIA [id number] [address] Differential cell count method Nom (Bld) Auto [facility] Comment on above: Order Comment: Speci men Type: BLOOD SPECIMENOrdering Facility: [facility] Address: [address] [place] [address] Performed By: #### 5 7021-8 ####ADKINS LABORATORYCLIA [id number] [place] [address] [place] Eosinophils (Bld) [#/Vol] 0.23 10*3/uL Normal <0.46 [facility] Comment on above: Order Comment: Speci men Type: BLOOD SPECIMENOrdering Facility: [facility] Address: [address] [place] [address] Performed By: #### 5 7021-8 ####ADKINS LABORATORYCLIA [id number] [place] [address] [place] Eosinophils/100 WBC (Bld) 4.9 % [facility] Comment on above: Order Comment: Speci men Type: BLOOD SPECIMENOrdering Facility: [facility] Address: [address] [place] [address] Performed By: #### 5 7021-8 ####ADKINS LABORATORYCLIA [id number] [address] [place] Erythrocyte distribution width (RBC) [Ratio] 13.3 % Normal 11.5-15.0 [facility] Comment on above: Order Comment: Speci men Type: BLOOD SPECIMENOrdering Facility: [facility] Address: [address] [place] [address] Performed By: #### 5 7021-8 ####ADKINS LABORATORYCLIA [id number] [address] [place] Hematocrit (Bld) [Volume fraction] 30.5 % Low 39.0-51.0 [facility] Comment on above: Order Comment: Speci men Type: BLOOD SPECIMENOrdering Facility: [facility] Address: [address] [place] [address] Performed By: #### 5 7021-8 ####ADKINS LABORATORYCLIA [id number] [place] [address] [place] Hemoglobin (Bld) [Mass/Vol] 9.9 g/dL Low 13.0-17.0 [facility] Comment on above: Order Comment: Speci men Type: BLOOD SPECIMENOrdering Facility: [facility] Address: [address] [place] [address] Performed By: #### 5 7021-8 ####ADKINS LABORATORYCLIA [id number] [address] [place] Immature granulocytes (Bld) [#/Vol] 0.03 10*3/uL Normal <0.10 [facility] Comment on above: Order Comment: Speci men Type: BLOOD SPECIMENOrdering Facility: [facility] Address: [address] [place] [address] Performed By: #### 5 7021-8 ####ADKINS LABORATORYCLIA [id number] [address] [place] Immature granulocytes/100 WBC (Bld) 0.6 % [facility] Comment on above: Order Comment: Speci men Type: BLOOD SPECIMENOrdering Facility: [facility] Address: [address] [place] [address] Performed By: #### 5 7021-8 ####ADKINS LABORATORYCLIA [id number] [place] [address] [place] Lymphocytes (Bld) [#/Vol] 1.33 10*3/uL Normal 1.00-4.00 [facility] Comment on above: Order Comment: Speci men Type: BLOOD SPECIMENOrdering Facility: [facility] Address: [address] [place] [address] Performed By: #### 5 7021-8 ####ADKINS LABORATORYCLIA [id number] [address] Lymphocytes/100 WBC (Bld) 28.5 % [facility] Comment on above: Order Comment: Speci men Type: BLOOD SPECIMENOrdering Facility: [facility] Address: [address] [place] [address] Performed By: #### 5 7021-8 ####ADKINS LABORATORYCLIA [id number] [place] [address] [place] MCH (RBC) [Entitic mass] 28.4 pg Normal 26.0-34.0 [facility] Comment on above: Order Comment: Speci men Type: BLOOD SPECIMENOrdering Facility: [facility] Address: [address] [place] [address] Performed By: #### 5 7021-8 ####ADKINS LABORATORYCLIA [id number] [address] [place] MCHC (RBC) [Mass/Vol] 32.5 g/dL Normal 30.5-36.0 [facility] Comment on above: Order Comment: Speci men Type: BLOOD SPECIMENOrdering Facility: [facility] Address: [address] [place] [address] Performed By: #### 5 7021-8 ####ADKINS LABORATORYCLIA [id number] [place] [address] [place] MCV (RBC) [Entitic vol] 87.6 fL Normal 80.0-100.0 [facility] Comment on above: Order Comment: Speci men Type: BLOOD SPECIMENOrdering Facility: [facility] Address: [address] [place] [address] Performed By: #### 5 7021-8 ####ADKINS LABORATORYCLIA [id number] [place] [address] [place] Monocytes (Bld) [#/Vol] 0.54 10*3/uL Normal <0.87 [facility] Comment on above: Order Comment: Speci men Type: BLOOD SPECIMENOrdering Facility: [facility] Address: [address] [place] [address] Performed By: #### 5 7021-8 ####ADKINS LABORATORYCLIA [id number] [place] [address] [place] Monocytes/100 WBC (Bld) 11.6 % [facility] Comment on above: Order Comment: Speci men Type: BLOOD SPECIMENOrdering Facility: [facility] Address: [address] [place] [address] Performed By: #### 5 7021-8 ####ADKINS LABORATORYCLIA [id number] [place] [address] [place] Neutrophils (Bld) [#/Vol] 2.53 10*3/uL Normal 1.45-7.50 [facility] Comment on above: Order Comment: Speci men Type: BLOOD SPECIMENOrdering Facility: [facility] Address: [address] [place] [address] Performed By: #### 5 7021-8 ####ADKINS LABORATORYCLIA [id number] [place] [address] [place] Neutrophils/100 WBC (Bld) 54.2 % [facility] Comment on above: Order Comment: Speci men Type: BLOOD SPECIMENOrdering Facility: [facility] Address: [address] [place] [address] Performed By: #### 5 7021-8 ####ADKINS LABORATORYCLIA [id number] [place] [address] [place] Nucleated RBC (Bld) [#/Vol] 10*3/uL Normal <0.01 [facility] Comment on above: Order Comment: Speci men Type: BLOOD SPECIMENOrdering Facility: [facility] Address: [address] [place] [address] Performed By: #### 5 7021-8 ####ADKINS LABORATORYCLIA [id number] [place] [address] [place] Nucleated RBC/100 WBC (Bld) [Ratio] 0.0 /100 WBC [facility] Comment on above: Order Comment: Speci men Type: BLOOD SPECIMENOrdering Facility: [facility] Address: [address] [place] [address] Performed By: #### 5 7021-8 ####ADKINS LABORATORYCLIA [id number] [place] [address] [place] Platelet mean volume (Bld) [Entitic vol] 9.3 fL Normal 9.0-12.7 [facility] Comment on above: Order Comment: Speci men Type: BLOOD SPECIMENOrdering Facility: [facility] Address: [address] [place] [address] Performed By: #### 5 7021-8 ####ADKINS LABORATORYCLIA [id number] [place] [address] [place] Platelets (Bld) [#/Vol] 225 10*3/uL Normal 150-400 [facility] Comment on above: Order Comment: Speci men Type: BLOOD SPECIMENOrdering Facility: [facility] Address: [address] [place] [address] Performed By: #### 5 7021-8 ####ADKINS LABORATORYCLIA [id number] [place] [address] [place] RBC (Bld) [#/Vol] 3.48 10*6/uL Low 4.20-6.00 [facility] Comment on above: Order Comment: Speci men Type: BLOOD SPECIMENOrdering Facility: [facility] Address: [facility] [place] [address] Performed By: #### 5 7021-8 ####ADKINS LABORATORYCLIA [id number] [place] [address] [place] WBC (Bld) [#/Vol] 4.67 10*3/uL Normal 3.70-11.00 [facility] Comment on above: Order Comment: Speci men Type: BLOOD SPECIMENOrdering Facility: [facility] Address: [address] [place] [address] Performed By: #### 5 7021-8 ####ADKINS LABORATORYCLIA [id number] [place] [id number] [facility] CONSULT PROGon 07-13-2024 CONSULT PROG [facility] Magnesium SerPl-mCncon 07-13 Magnesium [Mass/Vol] 1.8 mg/dL Normal 1.7-2.3 [facility] Comment on above: Order Comment: Speci men Type: BLOOD SPECIMENOrdering Facility: [facility] Address: [address] [place], [place] [address] [address] Performed By: #### 2 777-1, 175-7, 48982-6, ####SHANNON LABORATORYCLIA [id number] [place] [id number] [facility] [place] Phosphate SerPl-mCncon 07-13 Phosphate [Mass/Vol] 6.5 mg/dL High 2.7-4.8 [facility] Comment on above: Order Comment: Speci men Type: BLOOD SPECIMENOrdering Facility: [facility] Address: [address] [place], [place] [address] [address] Performed By: #### 2 777-1, 175-7, 79390-1, ####SHANNON LABORATORYCLIA [id number] [place] [address] [place] Basic metabolic 2000 panelon 07-12-2024 Anion gap [Moles/Vol] 13 mmol/L Normal 8-15 [facility] Comment on above: Order Comment: Speci men Type: BLOOD SPECIMENOrdering Facility: [facility] Address: [address] [place] [address] Performed By: #### 2 4321-2 ####ADKINS LABORATORYCLIA [id number] [place] [address] [place] Calcium [Mass/Vol] 8.9 mg/dL Normal 8.5-10.2 [facility] Comment on above: Order Comment: Speci men Type: BLOOD SPECIMENOrdering Facility: [facility] Address: [address] [place] [address] Performed By: #### 2 4321-2 ####ADKINS LABORATORYCLIA [id number] [place] [address] [place] Chloride [Moles/Vol] 108 mmol/L High 98-107 [facility] Comment on above: Order Comment: Speci men Type: BLOOD SPECIMENOrdering Facility: [facility] Address: [address] [place] [address] Performed By: #### 2 4321-2 ####ADKINS LABORATORYCLIA [id number] [place] [address] [place] CO2 [Moles/Vol] 22 mmol/L Normal 22-30 [facility] Comment on above: Order Comment: Speci men Type: BLOOD SPECIMENOrdering Facility: [facility] Address: [address] [place] [address] Performed By: #### 2 4321-2 ####ADKINS LABORATORYCLIA [id number] [place] [address] [place] Creatinine [Mass/Vol] 5.23 mg/dL High 0.73-1.22 [facility] Comment on above: Order Comment: Speci men Type: BLOOD SPECIMENOrdering Facility: [facility] Address: [address] [place] [address] Performed By: #### 2 4321-2 ####ADKINS LABORATORYCLIA [id number] [place] [address] [place] Creatinine and Glomerular filtration rate.predicted panel (S/P/Bld) 12 mL/min/1.73m??? Low >=60 [facility] Comment on above: Order Comment: Luz vaughan Type: BLOOD SPECIMENOrdering Facility: [facility] Address: [address] [place] [address] Result Comment: Breanne mated Glomerular Filtration Rate [...] actual GFR. Performed By: #### 2 4321-2 ####SHANNON LABORATORYCLIA [id number] [place] [id number] [place] Glucose [Mass/Vol] 61 mg/dL Low 74-99 [facility] Comment on above: Order Comment: Luz vaughan Type: BLOOD SPECIMENOrdering Facility: [facility] Address: [address] [place] [address] Result Comment: The [place] Diabetes Association (ADA) provides guidance for cutoff [...] Standards of Medical Care in Diabetes 2016, [place] [employer]. Diabetes Care. 2016.39(Suppl 1). Performed By: #### 2 4321-2 ####SHANNON LABORATORYCLIA [id number] [place] [address] [place] Potassium [Moles/Vol] 5.0 mmol/L Normal 3.7-5.1 [facility] Comment on above: Order Comment: Luz vaughan Type: BLOOD SPECIMENOrdering Facility: [facility] Address: [address] [place] [id number] Performed By: #### 2 4321-2 ####ADKINS LABORATORYCLIA [id number] [place] [address] [place] Sodium [Moles/Vol] 143 mmol/L Normal 136-144 [facility] Comment on above: Order Comment: Speci men Type: BLOOD SPECIMENOrdering Facility: [facility] Address: [address] [place] [address] Performed By: #### 2 4321-2 ####ADKINS LABORATORYCLIA [id number] [place] [address] [place] Urea nitrogen [Mass/Vol] 77 mg/dL High 9-24 [facility] Comment on above: Order Comment: Speci men Type: BLOOD SPECIMENOrdering Facility: [facility] Address: [address] [place] [address] Performed By: #### 2 4321-2 ####ADKINS LABORATORYCLIA [id number] [address] [facility] CASE MANAGEMon 07-12-2024 CASE MANAGEM [facility] CBC panel Auto (Bld)on 07-12 Erythrocyte distribution width (RBC) [Ratio] 13.2 % Normal 11.5-15.0 [facility] Comment on above: Order Comment: Speci men Type: BLOOD SPECIMENOrdering Facility: [facility] Address: [address] [place] [address] Performed By: #### 5 8410-2 ####ADKINS LABORATORYCLIA [id number] [address] [place] Hematocrit (Bld) [Volume fraction] 31.8 % Low 39.0-51.0 [facility] Comment on above: Order Comment: Speci men Type: BLOOD SPECIMENOrdering Facility: [facility] Address: [address] [place] [address] Performed By: #### 5 8410-2 ####ADKINS LABORATORYCLIA [id number] [address] [place] Hemoglobin (Bld) [Mass/Vol] 10.4 g/dL Low 13.0-17.0 [facility] Comment on above: Order Comment: Speci men Type: BLOOD SPECIMENOrdering Facility: [facility] Address: [address] [place] [address] Performed By: #### 5 8410-2 ####ADKINS LABORATORYCLIA [id number] [address] MCH (RBC) [Entitic mass] 28.7 pg Normal 26.0-34.0 [facility] Comment on above: Order Comment: Speci men Type: BLOOD SPECIMENOrdering Facility: [facility] Address: [address] [place] [address] Performed By: #### 5 8410-2 ####ADKINS LABORATORYCLIA [id number] [address] MCHC (RBC) [Mass/Vol] 32.7 g/dL Normal 30.5-36.0 [facility] Comment on above: Order Comment: Speci men Type: BLOOD SPECIMENOrdering Facility: [facility] Address: [address] [place] [address] Performed By: #### 5 8410-2 ####AKDINS LABORATORYCLIA [id number] [address] MCV (RBC) [Entitic vol] 87.8 fL Normal 80.0-100.0 [facility] Comment on above: Order Comment: Speci men Type: BLOOD SPECIMENOrdering Facility: [facility] Address: [address] [place] [address] Performed By: #### 5 8410-2 ####ADKINS LABORATORYCLIA [id number] [address] Nucleated RBC (Bld) [#/Vol] 10*3/uL Normal <0.01 [facility] Comment on above: Order Comment: Speci men Type: BLOOD SPECIMENOrdering Facility: [facility] Address: [address] [place] [address] Performed By: #### 5 8410-2 ####ADKINS LABORATORYCLIA [id number] [address] Platelet mean volume (Bld) [Entitic vol] 9.2 fL Normal 9.0-12.7 [facility] Comment on above: Order Comment: Speci men Type: BLOOD SPECIMENOrdering Facility: [facility] Address: [address] [place] [address] Performed By: #### 5 8410-2 ####ADKINS LABORATORYCLIA [id number] [address] Platelets (Bld) [#/Vol] 227 10*3/uL Normal 150-400 [facility] Comment on above: Order Comment: Speci men Type: BLOOD SPECIMENOrdering Facility: [facility] Address: [address] [place] [address] Performed By: #### 5 8410-2 ####ADKINS LABORATORYCLIA [id number] [place] [address] [place] RBC (Bld) [#/Vol] 3.62 10*6/uL Low 4.20-6.00 [facility] Comment on above: Order Comment: Speci men Type: BLOOD SPECIMENOrdering Facility: [facility] Address: [address] [place] [address] Performed By: #### 5 8410-2 ####ADKINS LABORATORYCLIA [id number] [address] [place] WBC (Bld) [#/Vol] 5.32 10*3/uL Normal 3.70-11.00 [facility] Comment on above: Order Comment: Speci men Type: BLOOD SPECIMENOrdering Facility: [facility] Address: [address] [place] [address] Performed By: #### 5 8410-2 ####ADKINS LABORATORYCLIA [id number] [address] [place] CNPNon 07-12-2024 CNPN Telephone (HCSIND) -- JOSÉ MANUEL ASHTON ([id number]) 1960 M [facility] Date Time Provider Department 07/12/24 JUDITH CAT HCSIND During your visit today, we recorded the following information about you: Judith Cat LPN 07/12/2024 10:24 AM Signed Bunny Scott MD Please advise if you are agreeable to signing and following for [facility] services? Our Clinicians will be sending the Plan of Care to you for review and approval. They will reach out for any appropriate orders required to provide home care services for the patient. We are not able to initiate HHC services without a following provider. Home care clinicians may also obtain orders from [facility] Providers Thank you and we would be [...] of r (more content not included)... Normal [facility] CONSULT PROGon 07-12-2024 CONSULT PROG [facility] CT BIOPSY RENALon 07-12-2024 CT BIOPSY RENAL [facility] PT EDon 07-12-2024 PT ED [facility] Pathology biopsy report Kade (Tiss)on 07-12-2024 ADDENDUM 1: [facility] Comment on above: Order Comment: Speci men Type: TISSUE SPECIMENOrdering Facility: [facility] Address: [address] [place] [address] Result Comment: A Co cano red stain for amyloid is negative. The diagnosis is unchanged.Addendum electronically signed by Leida Jones MD on 07/17/2024 at 1643 EDT Performed By: #### 6 6121-5 ####[facility] LABIA [id number] [address] [place] AP DISCLAIMER [facility] Comment on above: Order Comment: Speci men Type: TISSUE SPECIMENOrdering Facility: [facility] Address: [address] [place] [address] Result Comment: Naya oliva Developed Test (LDT) Disclaimer:Performance characteristics of immunohistochemical, immunofluorescent, and chromogenic in-situ hybridization tests have been determined by the performing laboratory within [facility]'s Antoine Mendez [facility] ([facility], [facility], [facility], [facility], [facility], [facility], or [facility]) in a manner consistent with CLIA requirements. One or more of these tests may not have been cleared or approved by the FDA. [facility] is regulated under CLIA as qualified to perform high-complexity testing. These tests are used for clinical purposes. These should not be regarded as investigational or for research. Positive and negative controls stain appropriately. Performed By: #### 6 6121-5 ####[facility] LABIA [id number] [place] [address] [place] CASE REPORT [facility] Comment on above: Order Comment: Speci men Type: TISSUE SPECIMENOrdering Facility: [facility] Address: [address] [place] [address] Result Comment: Surg [facility] Pathology Report Case: [id number] Provider: Luis Carlos Garcia MD Collected: 07/12/2024 02:38 PMOrdering Location: [facility] Received: 07/12/2024 02:55 PM SouthPathologist: Leida Jones MDSpecimen: Kidney, Right, Biopsy Performed By: #### 6 6121-5 ####[facility] LABIA [id number] [place] [address] [place] CLINICAL HISTORY 63-year-old man with history of diabetes, presenting with TARYN on CKD. Creatinine 5.71, albumin 3.2, UA protein 3+/blood 1+, UPCR 7.24, JAMARCUS negative, C3/C4 within normal limits, ANCA negative, kappa lambda ratio within normal limits. [facility] Comment on above: Order Comment: Speci men Type: TISSUE SPECIMENOrdering Facility: [facility] Address: [address] [place] [address] Performed By: #### 6 6121-5 ####[facility] LABCLIA [id number] [address] DIAGNOSIS COMMENT [facility] Comment on above: Order Comment: Speci clement Type: TISSUE SPECIMENOrdering Facility: [facility] Address: [address] [place] [address] Performed By: #### 6 6121-5 ####[facility] LABCLIA [id number] [address] FINAL DIAGNOSIS [facility] Comment on above: Order Comment: Speci clement Type: TISSUE SPECIMENOrdering Facility: [facility] Address: [address] [place] [address] Result Comment: Right Joaquín, Biopsy:- 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 See comment.- Tubular atrophy and interstitial fibrosis, severe.- Arteriosclerosis, moderate, and arteriolosclerosis, severe. at 1508 EDT Performed By: #### 6 6121-5 ####[facility] LABCLIA [id number] [address] FINAL PERFORMING LAB [facility] Comment on above: Order Comment: [facility] Type: TISSUE SPECIMENOrdering Facility: [facility] Address: [address] [place] [address] Result Comment: Diag nostic interpretation performed at: [facility], [address] [place] [address], [facility] [place] [address] CLIA# [id number] Director: Teja Pedraza MD Performed By: #### 6 6121-5 ####[facility] [id number] [address] GROSS DESCRIPTION [facility] Comment on above: Order Comment: Speci clement Type: TISSUE SPECIMENOrdering Facility: [facility] Address: [address] [place] [address] Result Comment: Tomás Emanuel ross, Right, BiopsyReceived fresh on saline moistened Telfa gauze are two segments of cylindrical flores, soft tissue aggregating to 2.3 x 0.2 x 0.1 cm. A portion is frozen and kept frozen for direct immunofluorescence. A portion is submitted for electron microscopy. A portion is submitted in formalin for light microscopy in cassette A2.Gross examination performed at [facility], [address] [place], [place] [address]AMS July 12, 2024 7:09 PM Performed By: #### 6 6121-5 ####[facility] [id number] [address] MICROSCOPIC DESCRIPTION [facility] Comment on above: Order Comment: Brooksi clement Type: TISSUE SPECIMENOrdering Facility: [facility] Address: [address] [place] [address] Result Comment: Sect ions are stained for [...] C1q, and are negative for other immunoreactants. [place] and lambda stain equally throughout the [...] the tubulointerstitium. Performed By: #### 6 6121-5 ####[facility] LABIA [id number] [address] [place] ALBUMIN/CREATININE RATIO, UR INEon 07-11-2024 Albumin DL <= 20 mg/L (U) [Mass/Vol] 1966.9 mg/L [facility] Comment on above: Order Comment: Speci men Type: URINE SPECIMENOrdering Facility: [facility] Address: [address] [place] [address] Performed By: #### 3 5677-4, 2890-2, UACR, 80576-8, 82322-6 ####[facility] [id number] [place] [address] [place] Albumin/Creatinine (U) [Mass ratio] 4276 mg/g High <30 [facility] Comment on above: Order Comment: Speci men Type: URINE SPECIMENOrdering Facility: [facility] Address: [address] [place] [address] Result Comment: Adul t Male and Female Nephrotic Criteria:<30 mg/g is considered normal to mildly pooeupklz26-894 mg/g is considered moderately increased>300 mg/g is considered severely increasedKDIGO. (2013). KDIGO 2012 Clinical Practice Guideline for the Evaluation and Management of Chronic Kidney Disease. Official Journal of the International Society of Nephrology, 3(1), 1-150. Performed By: #### 3 5677-4, 2890-2, UACR, 93755-0, 06496-1 ####[facility] LABIA [id number] [place] [address] [place] JAMARCUS BY IFA SCREENon 07-12-19 Nuclear Ab Ql (S) Negative [facility] Comment on above: Order Comment: Speci men Type: BLOOD SPECIMENOrdering Facility: [facility] Address: [address] [place] [address] Result Comment: Anti -nuclear antibody test is used as an aid in diagnosis of systemic autoimmune diseases. Where positive and clinically warranted, follow-up using disease-specific testing is recommended. Low positive titers are not uncommon with advanced age, certain chronic infections, and malignancies among others.Test methodology: Indirect fluorescence immunoassay (IFA) using HEp-2 cells. Performed By: #### A NAIFS, ANCA ####[facility] LABCLIA [id number] [place] [address] [place] ANTI NEUTRO CYTO ABon 2024 INTERPRETATION (ANCA) Equivocal staining seen on the ethanol (indirect immunofluorescence screen) slide but negative results on follow up confirmatory testing. Anti-nuclear antibody test may be considered. Clinical correlation is required. [facility] Comment on above: Order Comment: Speci clement Type: BLOOD SPECIMENOrdering Facility: [facility] Address: [address] [place] [address] Performed By: #### A NAIFS, ANCA ####[facility] LABCLIA [id number] [place] [address] [place] Myeloperoxidase Ab Qn (S) <0.2 Normal <1.0 [facility] Comment on above: Order Comment: Speci men Type: BLOOD SPECIMENOrdering Facility: [facility] Address: [address] [place] [address] Performed By: #### A NAIFS, ANCA ####[facility] LABCLIA [id number] [place] [address] [place] Neutrophil cytoplasmic Ab.classic IF Ql (S) Negative [facility] Comment on above: Order Comment: Speci men Type: BLOOD SPECIMENOrdering Facility: [facility] Address: [address] [place] [address] Performed By: #### A NAIFS, ANCA ####[facility] LABCLIA [id number] [place] [address] [place] Neutrophil cytoplasmic Ab.perinuclear IF Ql (S) Negative [facility] Comment on above: Order Comment: Speci men Type: BLOOD SPECIMENOrdering Facility: [facility] Address: [address] [place] [address] Performed By: #### A NAIFS, ANCA ####[facility] LABCLIA [id number] [place] [address] [place] Proteinase 3 Ab Qn (S) <0.2 Normal <1.0 [facility] Comment on above: Order Comment: Speci men Type: BLOOD SPECIMENOrdering Facility: [facility] Address: [address] [place] [address] Performed By: #### A NAIFS, ANCA ####[facility] LABCLIA [id number] [address] [place] STAFF REVIEW (ANCA) Reviewed by Moe Bailey, Ph.D D([facility]) [facility] Comment on above: Order Comment: Speci men Type: BLOOD SPECIMENOrdering Facility: [facility] Address: [address] [place] [address] Performed By: #### A NAIFS, ANCA ####[facility] LABCLIA [id number] [place] [address] [place] Basic metabolic 2000 panelon 07-11-2024 Anion gap [Moles/Vol] 14 mmol/L Normal 8-15 [facility] Comment on above: Order Comment: Speci men Type: BLOOD SPECIMENOrdering Facility: [facility] Address: [address] [place] [address] Performed By: #### 2 4321-2 ####[facility]ORATORYCLIA [id number] [place] [address] [place] Calcium [Mass/Vol] 8.9 mg/dL Normal 8.5-10.2 [facility] Comment on above: Order Comment: Speci men Type: BLOOD SPECIMENOrdering Facility: [facility] Address: [address] [place] [address] Performed By: #### 2 4321-2 ####[facility]ATORYCLIA [id number] [address] [place] Chloride [Moles/Vol] 109 mmol/L High 98-107 [facility] Comment on above: Order Comment: Speci men Type: BLOOD SPECIMENOrdering Facility: [facility] Address: [address] [place] [address] Performed By: #### 2 4321-2 ####[facility]ORATORYCLIA [id number] [place] [address] [place] CO2 [Moles/Vol] 22 mmol/L Normal 22-30 [facility] Comment on above: Order Comment: Speci men Type: BLOOD SPECIMENOrdering Facility: [facility] Address: [address] [place] [address] Performed By: #### 2 4321-2 ####[facility]ORATORYCLIA [id number] [place] [address] [place] Creatinine [Mass/Vol] 6.10 mg/dL High 0.73-1.22 [facility] Comment on above: Order Comment: Speci men Type: BLOOD SPECIMENOrdering Facility: [facility] Address: [address] [place] [address] Performed By: #### 2 4321-2 ####[facility]ORATORYCLIA [id number] [address] Creatinine and Glomerular filtration rate.predicted panel (S/P/Bld) 10 mL/min/1.73m??? Low >=60 [facility] Comment on above: Order Comment: Speci men Type: BLOOD SPECIMENOrdering Facility: [facility] Address: [address] [place] [address] Result Comment: Breanne mated Glomerular Filtration Rate [...] Performed By: #### 2 4321-2 ####[facility] LABORATORYCLIA [id number] [place] [address] [place] Glucose [Mass/Vol] 128 mg/dL High 74-99 [facility] Comment on above: Order Comment: Luz vaughan Type: BLOOD SPECIMENOrdering Facility: [facility] Address: [address] [place] [address] Result Comment: The [place] Diabetes Association (ADA) provides guidance for cutoff [...] Standards of Medical Care in Diabetes 2016, [place] [employer] Association. Diabetes Care. 2016.39(Suppl 1). Performed By: #### 2 4321-2 ####[facility] LABORATORYCLIA [id number] [place] [address] [place] Potassium [Moles/Vol] 5.2 mmol/L High 3.7-5.1 [facility] Comment on above: Order Comment: Luz vaughan Type: BLOOD SPECIMENOrdering Facility: [facility] Address: [address] [place] [address] Performed By: #### 2 4321-2 ####[facility] LABORATORYCLIA [id number] [place] [id number] [place] Sodium [Moles/Vol] 145 mmol/L High 136-144 [facility] Comment on above: Order Comment: Luz vaughan Type: BLOOD SPECIMENOrdering Facility: [facility] Address: [address] [place] [address] Performed By: #### 2 4321-2 ####[facility] LABORATORYCLIA [id number] [place] [address] [place] Urea nitrogen [Mass/Vol] 85 mg/dL High 9-24 [facility] Comment on above: Order Comment: Speci men Type: BLOOD SPECIMENOrdering Facility: [facility] Address: [address] [place] [address] Performed By: #### 2 4321-2 ####[facility]ORATORYCLIA [id number] [place] [id number] [place] C3 SerPl-mCncon 07-11-2024 Complement C3 [Mass/Vol] 139 mg/dL Normal 86-166 [facility] Comment on above: Order Comment: Speci men Type: BLOOD SPECIMENOrdering Facility: [facility] Address: [address] [place] [address] Performed By: #### 4 498-2, 4485-9, 2885-2 ####[facility] LABCLIA [id number] [place] [address] [place] C4 SerPl-mCncon 07-11-2024 Complement C4 [Mass/Vol] 21 mg/dL Normal 13-46 [facility] Comment on above: Order Comment: Speci men Type: BLOOD SPECIMENOrdering Facility: [facility] Address: [address] [place] [address] Performed By: #### 4 498-2, 4485-9, 2885-2 ####[facility] LABCLIA [id number] [place] [id number] [place] CASE MGT INIT ASSESon 2024 CASE MGT INIT ASS Normal [facility] CBC panel Auto (Bld)on 07-11 Erythrocyte distribution width (RBC) [Ratio] 13.2 % Normal 11.5-15.0 [facility] Comment on above: Order Comment: Speci men Type: BLOOD SPECIMENOrdering Facility: [facility] Address: [address] [place] [address] Performed By: #### 5 8410-2 ####[facility] LABORATORYCLIA [id number] [address] Hematocrit (Bld) [Volume fraction] 32.8 % Low 39.0-51.0 [facility] Comment on above: Order Comment: Speci men Type: BLOOD SPECIMENOrdering Facility: [facility] Address: [address] [place] [address] Performed By: #### 5 8410-2 ####[facility]ORATORYCLIA [id number] [address] Hemoglobin (Bld) [Mass/Vol] 10.8 g/dL Low 13.0-17.0 [facility] Comment on above: Order Comment: Speci men Type: BLOOD SPECIMENOrdering Facility: [facility] Address: [address] [place] [address] Performed By: #### 5 8410-2 ####[facility]ORATORYCLIA [id number] [address] MCH (RBC) [Entitic mass] 28.9 pg Normal 26.0-34.0 [facility] Comment on above: Order Comment: Speci men Type: BLOOD SPECIMENOrdering Facility: [facility] Address: [address] [place] [address] Performed By: #### 5 8410-2 ####[facility]ORATORYCLIA [id number] [address] MCHC (RBC) [Mass/Vol] 32.9 g/dL Normal 30.5-36.0 [facility] Comment on above: Order Comment: Speci men Type: BLOOD SPECIMENOrdering Facility: [facility] Address: [address] [place] [address] Performed By: #### 5 8410-2 ####[facility]ORATORYCLIA [id number] [address] MCV (RBC) [Entitic vol] 87.7 fL Normal 80.0-100.0 [facility] Comment on above: Order Comment: Speci men Type: BLOOD SPECIMENOrdering Facility: [facility] Address: [address] [place] [address] Performed By: #### 5 8410-2 ####[facility]ORATORYCLIA [id number] [place] [id number] [place] Nucleated RBC (Bld) [#/Vol] 10*3/uL Normal <0.01 [facility] Comment on above: Order Comment: Speci men Type: BLOOD SPECIMENOrdering Facility: [facility] Address: [address] [place] [address] Performed By: #### 5 8410-2 ####[facility]ORATORYCLIA [id number] [place] [address] [place] Platelet mean volume (Bld) [Entitic vol] 9.2 fL Normal 9.0-12.7 [facility] Comment on above: Order Comment: Speci men Type: BLOOD SPECIMENOrdering Facility: [facility] Address: [address] [place] [address] Performed By: #### 5 8410-2 ####[facility]ORATORYCLIA [id number] [place] [address] [place] Platelets (Bld) [#/Vol] 248 10*3/uL Normal 150-400 [facility] Comment on above: Order Comment: Speci men Type: BLOOD SPECIMENOrdering Facility: [facility] Address: [address] [place] [address] Performed By: #### 5 8410-2 ####[facility]ORATORYCLIA [id number] [place] [address] [place] RBC (Bld) [#/Vol] 3.74 10*6/uL Low 4.20-6.00 [facility] Comment on above: Order Comment: Speci men Type: BLOOD SPECIMENOrdering Facility: [facility] Address: [address] [place] [address] Performed By: #### 5 8410-2 ####[facility]ORATORYCLIA [id number] [address] [place] WBC (Bld) [#/Vol] 5.12 10*3/uL Normal 3.70-11.00 [facility] Comment on above: Order Comment: Speci men Type: BLOOD SPECIMENOrdering Facility: [facility] Address: [address] [place] [address] Performed By: #### 5 8410-2 ####[facility]ORATORYCLIA [id number] [place] [address] [place] CONSULTon 07-11-2024 CONSULT [facility] Creat ?Tm Ur-mCncon 07-12-19 25 Creatinine (U) [Mass/Vol] 46.0 mg/dL Normal 20.0-300.0 [facility] Comment on above: Order Comment: Speci men Type: URINE SPECIMENOrdering Facility: [facility] Address: [address] [place] [address] Performed By: #### 3 5677-4, 2890-2, [facility], 85197-2, 68150-3 ####[facility] LABCLIA [id number] [place] [address] [place] DNA ANTIBODY DS BLDon 2024 DNA ANTIBODY 9 IU/mL Normal <=200 [facility] Comment on above: Order Comment: Speci men Type: BLOOD SPECIMENOrdering Facility: [facility] Address: [address] [place] [address] Result Comment: Nega tive: <200 IU/mLEquivocal: 201-300 IU/mLModerate Positive: 301-800 IU/mLStrong Positive: >801 IU/mL Performed By: #### D NAAB ####[facility] LABCLIA [id number] [place] [address] [place] DNA ANTIBODY QUALITATIVE INTERPRETATION Negative Normal [facility] Comment on above: Order Comment: Speci men Type: BLOOD SPECIMENOrdering Facility: [facility] Address: [address] [place] [address] Performed By: #### D NAAB ####[facility] LABCLIA [id number] [place] [address] [place] GBM IGG AUTOANTIBODYon 07-11 GBM IGG AB, (BEAD) 0 AU/mL Normal 0-19 [facility] Comment on above: Order Comment: Speci men Type: BLOOD SPECIMENOrdering Facility: [facility] Address: [address] [place] [address] Result Comment: INTE RPRETIVE INFORMATION: GBM Ab, [...] confirmation and assessment of renal prognosis.Performed By: [employer] [place] [id number] Director: Derian Moreno MD, PhDCLIA Number: [id number] Performed By: #### G BM ####[facility]UM[facility]ULLIA [id number] [place] [address] HISTORY PHYSICALon HISTORY PHYSICAL [facility] KAPPA/MEDELLIN,FREE,SERon 2024 Immunoglobulin light chains.kappa.free (S) [Mass/Vol] 81.2 mg/L High 3.3-19.4 [facility] Comment on above: Order Comment: Speci men Type: BLOOD SPECIMENOrdering Facility: [facility] Address: [address] [place] [address] Result Comment: Rare ly, increased serum free light chains levels may not be detected or accurately quantified due to prozone phenomenon or in high viscosity samples using this immunoturbidimetric assay. Correlation with other laboratory results and clinical findings is recommended.The [place] Free Light Chain was performed using the Binding Site Optilite immunoturbidimetric method. Result obtained with different assay methods or kits cannot be used interchangeably. Performed By: #### K LFRS ####[facility] LABCLIA [id number] [place] [address] [place] Immunoglobulin light chains.kappa/Immunogl obulin light chains.lambda (S) [Mass ratio] 1.56 Normal 0.26-1.65 [facility] Comment on above: Order Comment: Speci men Type: BLOOD SPECIMENOrdering Facility: [facility] Address: [address] [place] [address] Performed By: #### K LFRS ####[facility] LABIA [id number] [address] [place] Immunoglobulin light chains.lambda.free [Mass/Vol] 52.1 mg/L High 5.7-26.3 [facility] Comment on above: Order Comment: Speci men Type: BLOOD SPECIMENOrdering Facility: [facility] Address: [address] [place] [address] Result Comment: Rare ly, increased serum free [...] used interchangeably. Performed By: #### K LFRS ####[facility] LABIA [id number] [place] [address] [place] Osmolality Uron 07-11-2024 Osmolality (U) [Osmolality] 398 mosm/kg Normal 50-1200 [facility] Comment on above: Order Comment: Speci men Type: URINE SPECIMENOrdering Facility: [facility] Address: [address] [place] [address] Performed By: #### 2 695-5 ####[facility] LABIA [id number] [place] [address] [place] PLA2R, IMMUNOFLUORESCENCE, S (REFLEX ONLY)on 07-11-2024 PLA2R, IMMUNOFLUORESCENCE, S Negative Normal [facility] Comment on above: Order Comment: Speci men Type: BLOOD SPECIMENOrdering Facility: [facility] Address: [address] [place] [address] Result Comment: PLA2 R is Negative ADDITIONAL INFORMATION This test was developed and its performance characteristicsdetermined by [facility] in a manner consistent withCLIA requirements. This test has not been cleared orapproved by the U.S. Food and Drug Administration.Test Performed by:[address] Director: Soy Loomis Ph.D.; CLIA# [id number] Performed By: #### P MNDCS, PLA2RI, THSD7A ####[facility] LABCLIA [id number] [place] [address] PRIMARY MEMBRANEOUS NEPHROPA THY DIAGNOSTIC CASCADE, SERon 07-11-2024 PHOSPHOLIPASE A2 RECEPTOR, FABIENNE, S <2 [facility] Comment on above: Order Comment: Luz vaughan Type: BLOOD SPECIMENOrdering Facility: [facility] Address: [address] [place] [address] Result Comment: ---- REFERENCE VALUE <14 RU/mL: Negative>=14 to <20 RU/mL: Borderline>=20 RU/mL: PositiveTest Performed by:[address] Director: Soy Loomis Ph.D.; CLIA# [id number] Performed By: #### P MNDCS, PLA2RI, THSD7A ####[facility] LABCLIA [id number] [place] [address] PROTEIN ELECTROPHORESIS SERU M WITH TATIANA (P)on 07-11-2024 Albumin [Mass/Vol] 3.83 g/dL Normal 3.43-5.41 [facility] Comment on above: Order Comment: Luz vaughan Type: BLOOD SPECIMENOrdering Facility: [facility] Address: [address] [place] [address] Performed By: #### L [id number] ####[facility] LABIA [id number] [place] [address] [place] Alpha 1 globulin Elph [Mass/Vol] 0.27 g/dL Normal 0.18-0.43 [facility] Comment on above: Order Comment: Speci men Type: BLOOD SPECIMENOrdering Facility: [facility] Address: [address] [place] [address] Performed By: #### L [id number] ####[facility] LABIA [id number] [place] [address] [place] Alpha 2 globulin Elph [Mass/Vol] 0.92 g/dL Normal 0.42-0.98 [facility] Comment on above: Order Comment: Speci men Type: BLOOD SPECIMENOrdering Facility: [facility] Address: [address] [place] [address] Performed By: #### L [id number] ####[facility]IA [id number] [place] [address] [place] Beta globulin Elph [Mass/Vol] 0.69 g/dL Normal 0.61-1.17 [facility] Comment on above: Order Comment: Speci men Type: BLOOD SPECIMENOrdering Facility: [facility] Address: [address] [place] [address] Performed By: #### L [id number] ####[facility] LABIA [id number] [place] [address] [place] COMMENT (SERUM PROT ELECTRO) Monoclonal Protein analysis (immunofixation) is not indicated. [facility] Comment on above: Order Comment: Speci men Type: BLOOD SPECIMENOrdering Facility: [facility] Address: [address] [place] [address] Performed By: #### L [id number] ####[facility] LABIA [id number] [place] [address] [place] Gamma globulin Elph [Mass/Vol] 0.48 g/dL Low 0.53-1.51 [facility] Comment on above: Order Comment: Speci men Type: BLOOD SPECIMENOrdering Facility: [facility] Address: [address] [place] [address] Performed By: #### L [id number] ####[facility] LABCLIA [id number] [address] M-PROTEIN LOCATION [facility] Comment on above: Order Comment: Speci men Type: BLOOD SPECIMENOrdering Facility: [facility] Address: [address] [place] [address] Result Comment: Not Applicable. Performed By: #### L [id number] ####[facility] LABCLIA [id number] [place] [id number] [facility] [place] Protein Fractions [Interp] No definitive M protein is identified on protein electrophoresis. Normal No definitive M protein is identified on protein electrophore sis. [facility] Comment on above: Order Comment: Speci men Type: BLOOD SPECIMENOrdering Facility: [facility] Address: [address] [place] [address] Performed By: #### L [id number] ####[facility] LABCLIA [id number] [address] Protein.monoclonal Elph [Mass/Vol] 0.00 g/dL Normal <=0.00 [facility] Comment on above: Order Comment: Speci men Type: BLOOD SPECIMENOrdering Facility: [facility] Address: [address] [place] [address] Performed By: #### L [id number] ####[facility] LABCLIA [id number] [place] [id number] [facility] [place] SPE STAFF REVIEW Reviewed by Sebas Ocampo MD, Ph.D ([id number]) [facility] Comment on above: Order Comment: Speci men Type: BLOOD SPECIMENOrdering Facility: [facility] Address: [address] [place] [address] Performed By: #### L [id number] ####[facility] LABCLIA [id number] [facility]ENTERD[place] [address] [place] PT panel Coag (PPP)on 2024 INR Coag (PPP) [Relative time] 0.9 {INR} Normal 0.9-1.3 [facility] Comment on above: Order Comment: Speci men Type: BLOOD SPECIMENOrdering Facility: [facility] Address: [address] [place] [address] Result Comment: Melissa min K Antagonist (VKA) Therapeutic Range: INR 2 to 3 (Target INR of 2.5)Note: For patients treated with VKA drugs, such as warfarin, the [place] [employer] 2012 Guideline recommends [...] Chest 2012, 141:7S-47SJean Claude RA, et al. [facility] 2017, 70: 252-289 Performed By: #### 3 4528-0 ####[facility]ATORYCLIA [id number] [place] [address] [place] PT Coag (PPP) [Time] 10.3 s Normal 9.7-13.0 [facility] Comment on above: Order Comment: Speci men Type: BLOOD SPECIMENOrdering Facility: [facility] Address: [address] [facility] [place] [id number] Performed By: #### 3 4528-0 ####[facility]ORATORYCLIA [id number] [place] [id number] [place] Potassium ?Tm Ur-sCncon 04- Potassium Unsp time (U) [Moles/Vol] 21.5 mmol/L Normal 10.0-160.0 [facility] Comment on above: Order Comment: Speci men Type: URINE SPECIMENOrdering Facility: [facility] Address: [address] [place] [address] Performed By: #### 3 5677-4, 2890-2, UACR, 95323-4, 98078-2 ####[facility] LABCLIA [id number] [facility] [place] [id number] [place] Prot SerPl-mCncon 07-11-2024 Protein [Mass/Vol] 6.2 g/dL Low 6.3-8.0 [facility] Comment on above: Order Comment: Speci men Type: BLOOD SPECIMENOrdering Facility: [facility] Address: [address] [place] [address] Performed By: #### 4 498-2, 4485-9, 2885-2 ####[facility] LABCLIA [id number] [place] [address] [place] Prot/Creat Uron 07-11-2024 Protein/Creatinine (U) [Mass ratio] 7.24 mg/mg High <0.15 [facility] Comment on above: Order Comment: Speci men Type: URINE SPECIMENOrdering Facility: [facility] Address: [address] [place] [address] Result Comment: Adul t Proteinuria Categories:<0.15 mg/mg is considered normal to mildly increased0.15 - 0.50 mg/mg is considered moderately increased>0.50 mg/mg is considered severely increasedKDIGO. (2013). KDIGO 2012 Clinical Practice Guideline for the Evaluation and Management of Chronic Kidney Disease. Official Journal of the International Society of Nephrology, 3(1), 1-150. Performed By: #### 3 5677-4, 2890-2, UACR, 42811-3, 40258-4 ####[facility] LABCLIA [id number] [address] [place] [address] [place] Protein/Creatinine (U) [Mass ratio]on 07-11-2024 Protein (U) [Mass/Vol] 333 mg/dL High 0-20 [facility] Comment on above: Order Comment: Speci men Type: URINE SPECIMENOrdering Facility: [facility] Address: [address] [place] [address] Performed By: #### 3 5677-4, 2890-2, UACR, 56222-1, 88460-3 ####[facility] LABCLIA [id number] [place] [address] [place] Sodium ?Tm Ur-sCncon 025 Sodium Unsp time (U) [Moles/Vol] 86 mmol/L Normal 14-216 [facility] Comment on above: Order Comment: Speci men Type: URINE SPECIMENOrdering Facility: [facility] Address: [address] [place] [address] Performed By: #### 3 5677-4, 2890-2, UACR, 71285-3, 10121-4 ####[facility] LABCLIA [id number] [place] [address] [place] THERAPY NTon 07-11-2024 THERAPY NT [facility] THERAPY NT [facility] THERAPY NT [facility] THSD7A AB, S (REFLEX ONLY)on 07-11-2024 THSD7A AB, S Negative Normal [facility] Comment on above: Order Comment: Speci men Type: BLOOD SPECIMENOrdering Facility: [facility] Address: [address] [place] [address] Result Comment: ---- ADDITIONAL INFORMATION This test was developed and its performance characteristicsdetermined by [facility] in a manner consistent withCLIA requirements. This test has not been cleared orapproved by the U.S. Food and Drug Administration.Test Performed by:[address] [id number] Director: Soy Loomis Ph.D.; CLIA# [id number] Performed By: #### P MNDCS, PLA2RI, THSD7A ####[facility] LABCLIA [id number] [place] [address] Urinalysis complete panel (U )on 07-11-2024 Bilirubin Ql (U) Negative Normal [facility] Comment on above: Order Comment: Speci men Type: URINE SPECIMENOrdering Facility: [facility] Address: [address] [place] [address] Performed By: #### 2 4356-8 ####[facility]ORATORYCLIA [id number] [address] [place] Clarity (Unsp spec) Clear Normal Clear [facility] Comment on above: Order Comment: Speci men Type: URINE SPECIMENOrdering Facility: [facility] Address: [address] [place] [address] Performed By: #### 2 4356-8 ####[facility]ORATORYCLIA [id number] [address] [place] Color (U) Yellow Normal [facility] Comment on above: Order Comment: Speci men Type: URINE SPECIMENOrdering Facility: [facility] Address: [address] [place] [address] Performed By: #### 2 4356-8 ####[facility] LABORATORYCLIA [id number] [address] [place] Epithelial cells LM.HPF (Urine sed) [#/Area] Few [facility] Comment on above: Order Comment: Speci men Type: URINE SPECIMENOrdering Facility: [facility] Address: [address] [place] [address] Performed By: #### 2 4356-8 ####ADKINS LABORATORYCLIA [id number] [place] [address] [place] Glucose Test strip (U) [Mass/Vol] 2+ Abnormal [facility] Comment on above: Order Comment: Speci men Type: URINE SPECIMENOrdering Facility: [facility] Address: [address] [place] [address] Performed By: #### 2 4356-8 ####ADKINS LABORATORYCLIA [id number] [place] [address] [place] Hemoglobin Ql (U) 1+ Abnormal Negative [facility] Comment on above: Order Comment: Speci men Type: URINE SPECIMENOrdering Facility: [facility] Address: [address] [place] [address] Performed By: #### 2 4356-8 ####ADKINS LABORATORYCLIA [id number] [place] [address] [place] Ketones Ql (U) Negative Normal Negative [facility] Comment on above: Order Comment: Speci men Type: URINE SPECIMENOrdering Facility: [facility] Address: [address] [place] [address] Performed By: #### 2 4356-8 ####ADKINS LABORATORYCLIA [id number] [address] [place] Leukocyte esterase Test strip Ql (U) Negative Normal [facility] Comment on above: Order Comment: Speci men Type: URINE SPECIMENOrdering Facility: [facility] Address: [address] [place] [address] Performed By: #### 2 4356-8 ####ADKINS LABORATORYCLIA [id number] [place] [address] [place] Nitrite Ql (U) Negative Normal [facility] Comment on above: Order Comment: Speci men Type: URINE SPECIMENOrdering Facility: [facility] Address: [address] [place] [address] Performed By: #### 2 4356-8 ####ADKINS LABORATORYCLIA [id number] [place] [address] [place] pH (U) 6.0 [pH] Normal 5.0-8.0 [facility] Comment on above: Order Comment: Speci men Type: URINE SPECIMENOrdering Facility: [facility] Address: [address] [place] [address] Performed By: #### 2 4356-8 ####ADKINS LABORATORYCLIA [id number] [place] [address] [place] Protein (U) [Mass/Vol] 3+ Abnormal Negative [facility] Comment on above: Order Comment: Speci men Type: URINE SPECIMENOrdering Facility: [facility] Address: [address] [place] [address] Performed By: #### 2 4356-8 ####ADKINS LABORATORYCLIA [id number] [address] RBC LM.HPF (Urine sed) [#/Area] 0-3 /HPF Normal 0-3 /HPF [facility] Comment on above: Order Comment: Speci men Type: URINE SPECIMENOrdering Facility: [facility] Address: [address] [place] [address] Performed By: #### 2 4356-8 ####ADKINS LABORATORYCLIA [id number] [address] [place] Specific gravity (U) [Rel density] 1.020 Normal 1.005-1.030 [facility] Comment on above: Order Comment: Speci men Type: URINE SPECIMENOrdering Facility: [facility] Address: [address] [place] [address] Performed By: #### 2 4356-8 ####ADKINS LABORATORYCLIA [id number] [address] Urobilinogen Ql (U) 0.2 EU/dL Normal 0.2-1.0 EU/dL [facility] Comment on above: Order Comment: Speci men Type: URINE SPECIMENOrdering Facility: [facility] Address: [address] [place] [address] Performed By: #### 2 4356-8 ####ADKINS LABORATORYCLIA [id number] [address] WBC LM.HPF (Urine sed) [#/Area] 0-5 /HPF Normal 0-5 /HPF [facility] Comment on above: Order Comment: Speci men Type: URINE SPECIMENOrdering Facility: [facility] Address: [address] [place] [address] Performed By: #### 2 4356-8 ####ADKINS LABORATORYCLIA [id number] [address] [place] ALLIED HEALTHon 07-10-2024 ALLIED HEALTH [facility]ALTH [facility] Basic metabolic 2000 panelon 07-10-2024 Anion gap [Moles/Vol] 13 mmol/L Normal 8-15 [facility] Comment on above: Order Comment: Speci men Type: BLOOD SPECIMENOrdering Facility: [facility] Address: [address] [place] [address] Performed By: #### 2 4321-2 ####ADKINS LABORATORYCLIA [id number] [place] [address] [place] Calcium [Mass/Vol] 8.6 mg/dL Normal 8.5-10.2 [facility] Comment on above: Order Comment: Speci men Type: BLOOD SPECIMENOrdering Facility: [facility] Address: [address] [place] [address] Performed By: #### 2 4321-2 ####ADKINS LABORATORYCLIA [id number] [place] [address] [place] Chloride [Moles/Vol] 107 mmol/L Normal 98-107 [facility] Comment on above: Order Comment: Speci men Type: BLOOD SPECIMENOrdering Facility: [facility] Address: [address] [place] [address] Performed By: #### 2 4321-2 ####ADKINS LABORATORYCLIA [id number] [place] [address] [place] CO2 [Moles/Vol] 22 mmol/L Normal 22-30 [facility] Comment on above: Order Comment: Speci men Type: BLOOD SPECIMENOrdering Facility: [facility] Address: [address] [place] [address] Performed By: #### 2 4321-2 ####ADKINS LABORATORYCLIA [id number] [place] [id number] [place] Creatinine [Mass/Vol] 6.19 mg/dL High 0.73-1.22 [facility] Comment on above: Order Comment: Speci men Type: BLOOD SPECIMENOrdering Facility: [facility] Address: [address] [place] [address] Performed By: #### 2 4321-2 ####ADKINS LABORATORYCLIA [id number] [place] [address] [place] Creatinine and Glomerular filtration rate.predicted panel (S/P/Bld) 9 mL/min/1.73m??? Low >=60 [facility] Comment on above: Order Comment: Luz vaughan Type: BLOOD SPECIMENOrdering Facility: [facility] Address: [address] [place] [address] Result Comment: Breanne mated Glomerular Filtration Rate [...] Performed By: #### 2 4321-2 ####ADKINS LABORATORYCLIA [id number] [place] [address] [place] Glucose [Mass/Vol] 130 mg/dL High 74-99 [facility] Comment on above: Order Comment: Luz vaughan Type: BLOOD SPECIMENOrdering Facility: [facility] Address: [address] [place] [address] Result Comment: The [place] Diabetes Association (ADA) provides guidance for cutoff [...] Standards of Medical Care in Diabetes 2016, [place] [employer]. Diabetes Care. 2016.39(Suppl 1). Performed By: #### 2 4321-2 ####ADKINS LABORATORYCLIA [id number] [place] [id number] [place] Potassium [Moles/Vol] 4.7 mmol/L Normal 3.7-5.1 [facility] Comment on above: Order Comment: Luz vaughan Type: BLOOD SPECIMENOrdering Facility: [facility] Address: [address] [place] [address] Performed By: #### 2 4321-2 ####ADKINS LABORATORYCLIA [id number] [address] Sodium [Moles/Vol] 142 mmol/L Normal 136-144 [facility] Comment on above: Order Comment: Speci men Type: BLOOD SPECIMENOrdering Facility: [facility] Address: [address] [place] [address] Performed By: #### 2 4321-2 ####ADKINS LABORATORYCLIA [id number] [address] STATES [facility] Urea nitrogen [Mass/Vol] 78 mg/dL High 9-24 [facility] Comment on above: Order Comment: Speci men Type: BLOOD SPECIMENOrdering Facility: [facility] Address: [address] [place] [address] Performed By: #### 2 4321-2 ####ADKINS LABORATORYCLIA [id number] [address] CBC W Auto Differential pane l (Bld)on 07-10-2024 Basophils (Bld) [#/Vol] 10*3/uL Normal <0.11 [facility] Comment on above: Order Comment: Speci men Type: BLOOD SPECIMENOrdering Facility: [facility] Address: [address] [place] [address] Performed By: #### 5 7021-8 ####ADKINS LABORATORYCLIA [id number] [address] Basophils/100 WBC (Bld) 0.2 % [facility] Comment on above: Order Comment: Speci men Type: BLOOD SPECIMENOrdering Facility: [facility] Address: [address] [place] [address] Performed By: #### 5 7021-8 ####ADKINS LABORATORYCLIA [id number] [address] Differential cell count method Nom (Bld) Auto [facility] Comment on above: Order Comment: Speci men Type: BLOOD SPECIMENOrdering Facility: [facility] Address: [address] [place] [address] Performed By: #### 5 7021-8 ####ADKINS LABORATORYCLIA [id number] [place] [address] [place] Eosinophils (Bld) [#/Vol] 0.24 10*3/uL Normal <0.46 [facility] Comment on above: Order Comment: Speci men Type: BLOOD SPECIMENOrdering Facility: [facility] Address: [address] [place] [address] Performed By: #### 5 7021-8 ####ADKINS LABORATORYCLIA [id number] [place] [address] [place] Eosinophils/100 WBC (Bld) 4.5 % [facility] Comment on above: Order Comment: Speci men Type: BLOOD SPECIMENOrdering Facility: [facility] Address: [address] [place] [address] Performed By: #### 5 7021-8 ####ADKINS LABORATORYCLIA [id number] [address] [place] Erythrocyte distribution width (RBC) [Ratio] 13.4 % Normal 11.5-15.0 [facility] Comment on above: Order Comment: Speci men Type: BLOOD SPECIMENOrdering Facility: [facility] Address: [address] [place] [address] Performed By: #### 5 7021-8 ####ADKINS LABORATORYCLIA [id number] [address] [place] Hematocrit (Bld) [Volume fraction] 35.6 % Low 39.0-51.0 [facility] Comment on above: Order Comment: Speci men Type: BLOOD SPECIMENOrdering Facility: [facility] Address: [address] [place] [address] Performed By: #### 5 7021-8 ####ADKINS LABORATORYCLIA [id number] [address] [place] Hemoglobin (Bld) [Mass/Vol] 11.7 g/dL Low 13.0-17.0 [facility] Comment on above: Order Comment: Speci men Type: BLOOD SPECIMENOrdering Facility: [facility] Address: [address] [place] [address] Performed By: #### 5 7021-8 ####ADKINS LABORATORYCLIA [id number] [place] [address] [place] Immature granulocytes (Bld) [#/Vol] 0.03 10*3/uL Normal <0.10 [facility] Comment on above: Order Comment: Speci men Type: BLOOD SPECIMENOrdering Facility: [facility] Address: [address] [place] [address] Performed By: #### 5 7021-8 ####ADKINS LABORATORYCLIA [id number] [address] [place] Immature granulocytes/100 WBC (Bld) 0.6 % [facility] Comment on above: Order Comment: Speci men Type: BLOOD SPECIMENOrdering Facility: [facility] Address: [address] [place] [address] Performed By: #### 5 7021-8 ####ADKINS LABORATORYCLIA [id number] [place] [address] [place] Lymphocytes (Bld) [#/Vol] 1.22 10*3/uL Normal 1.00-4.00 [facility] Comment on above: Order Comment: Speci men Type: BLOOD SPECIMENOrdering Facility: [facility] Address: [address] [place] [address] Performed By: #### 5 7021-8 ####ADKINS LABORATORYCLIA [id number] [place] [address] [place] Lymphocytes/100 WBC (Bld) 22.9 % [facility] Comment on above: Order Comment: Speci men Type: BLOOD SPECIMENOrdering Facility: [facility] Address: [address] [place] [address] Performed By: #### 5 7021-8 ####ADKINS LABORATORYCLIA [id number] [place] [address] [place] MCH (RBC) [Entitic mass] 28.9 pg Normal 26.0-34.0 [facility] Comment on above: Order Comment: Speci men Type: BLOOD SPECIMENOrdering Facility: [facility] Address: [address] [place] [address] Performed By: #### 5 7021-8 ####ADKINS LABORATORYCLIA [id number] [address] MCHC (RBC) [Mass/Vol] 32.9 g/dL Normal 30.5-36.0 [facility] Comment on above: Order Comment: Speci men Type: BLOOD SPECIMENOrdering Facility: [facility] Address: [address] [place] [address] Performed By: #### 5 7021-8 ####ADKINS LABORATORYCLIA [id number] [address] MCV (RBC) [Entitic vol] 87.9 fL Normal 80.0-100.0 [facility] Comment on above: Order Comment: Speci men Type: BLOOD SPECIMENOrdering Facility: [facility] Address: [address] [place] [address] Performed By: #### 5 7021-8 ####ADKINS LABORATORYCLIA [id number] [address] Monocytes (Bld) [#/Vol] 0.54 10*3/uL Normal <0.87 [facility] Comment on above: Order Comment: Speci men Type: BLOOD SPECIMENOrdering Facility: [facility] Address: [address] [place] [address] Performed By: #### 5 7021-8 ####ADKINS LABORATORYCLIA [id number] [address] Monocytes/100 WBC (Bld) 10.1 % [facility] Comment on above: Order Comment: Speci men Type: BLOOD SPECIMENOrdering Facility: [facility] Address: [address] [place] [address] Performed By: #### 5 7021-8 ####ADKINS LABORATORYCLIA [id number] [address] [place] Neutrophils (Bld) [#/Vol] 3.29 10*3/uL Normal 1.45-7.50 [facility] Comment on above: Order Comment: Speci men Type: BLOOD SPECIMENOrdering Facility: [facility] Address: [address] [place] [address] Performed By: #### 5 7021-8 ####ADKINS LABORATORYCLIA [id number] [address] [place] Neutrophils/100 WBC (Bld) 61.7 % [facility] Comment on above: Order Comment: Speci men Type: BLOOD SPECIMENOrdering Facility: [facility] Address: [address] [place] [address] Performed By: #### 5 7021-8 ####ADKINS LABORATORYCLIA [id number] [place] [address] [place] Nucleated RBC (Bld) [#/Vol] 10*3/uL Normal <0.01 [facility] Comment on above: Order Comment: Speci men Type: BLOOD SPECIMENOrdering Facility: [facility] Address: [address] [place] [address] Performed By: #### 5 7021-8 ####ADKINS LABORATORYCLIA [id number] [place] [address] [place] Nucleated RBC/100 WBC (Bld) [Ratio] 0.0 /100 WBC [facility] Comment on above: Order Comment: Speci men Type: BLOOD SPECIMENOrdering Facility: [facility] Address: [address] [place] [address] Performed By: #### 5 7021-8 ####ADKINS LABORATORYCLIA [id number] [place] [address] [place] Platelet mean volume (Bld) [Entitic vol] 8.7 fL Low 9.0-12.7 [facility] Comment on above: Order Comment: Speci men Type: BLOOD SPECIMENOrdering Facility: [facility] Address: [address] [place] [address] Performed By: #### 5 7021-8 ####ADKINS LABORATORYCLIA [id number] [place] [address] [place] Platelets (Bld) [#/Vol] 277 10*3/uL Normal 150-400 [facility] Comment on above: Order Comment: Speci men Type: BLOOD SPECIMENOrdering Facility: [facility] Address: [address] [place] [address] Performed By: #### 5 7021-8 ####ADKINS LABORATORYCLIA [id number] [address] RBC (Bld) [#/Vol] 4.05 10*6/uL Low 4.20-6.00 [facility] Comment on above: Order Comment: Speci men Type: BLOOD SPECIMENOrdering Facility: [facility] Address: [address] [place] [address] Performed By: #### 5 7021-8 ####ADKINS LABORATORYCLIA [id number] [address] WBC (Bld) [#/Vol] 5.33 10*3/uL Normal 3.70-11.00 [facility] Comment on above: Order Comment: Speci men Type: BLOOD SPECIMENOrdering Facility: [facility] Address: [address] [place] [address] Performed By: #### 5 7021-8 ####ADKINS LABORATORYCLIA [id number] [address] Comprehensive metabolic 2000 panelon 07-10-2024 Albumin [Mass/Vol] 3.5 g/dL Low 3.9-4.9 [facility] Comment on above: Order Comment: Speci men Type: BLOOD SPECIMENOrdering Facility: [facility] Address: [address] [place] [address] Performed By: #### 2 4323-8, ####ADKINS LABORATORYCLIA [id number] [address] ALP [Catalytic activity/Vol] 80 U/L Normal 38-113 [facility] Comment on above: Order Comment: Speci men Type: BLOOD SPECIMENOrdering Facility: [facility] Address: [address] [place] [address] Performed By: #### 2 4323-8, ####ADKINS LABORATORYCLIA [id number] [place] [address] [place] ALT [Catalytic activity/Vol] 10 U/L Normal 10-54 [facility] Comment on above: Order Comment: Speci men Type: BLOOD SPECIMENOrdering Facility: [facility] Address: [address] [place] [address] Performed By: #### 2 432-8, ####ADKINS LABORATORYCLIA [id number] [place] [address] [place] Anion gap [Moles/Vol] 14 mmol/L Normal 8-15 [facility] Comment on above: Order Comment: Speci men Type: BLOOD SPECIMENOrdering Facility: [facility] Address: [address] [place] [address] Performed By: #### 2 8, ####ADKINS LABORATORYCLIA [id number] [address] [place] AST [Catalytic activity/Vol] 11 U/L Low 14-40 [facility] Comment on above: Order Comment: Speci men Type: BLOOD SPECIMENOrdering Facility: [facility] Address: [address] [place] [address] Performed By: #### 2 432-8, ####ADKINS LABORATORYCLIA [id number] [place] [address] [place] Bilirubin [Mass/Vol] 0.2 mg/dL Normal 0.2-1.3 [facility] Comment on above: Order Comment: Speci men Type: BLOOD SPECIMENOrdering Facility: [facility] Address: [address] [facility] [place] [address] Performed By: #### 2 432-8, ####ADKINS LABORATORYCLIA [id number] [address] [place] Calcium [Mass/Vol] 9.2 mg/dL Normal 8.5-10.2 [facility] Comment on above: Order Comment: Speci men Type: BLOOD SPECIMENOrdering Facility: [facility] Address: [address] [place] [address] Performed By: #### 2 8, ####ADKINS LABORATORYCLIA [id number] [place] [address] [place] Chloride [Moles/Vol] 104 mmol/L Normal 98-107 [facility] Comment on above: Order Comment: Luz vaughan Type: BLOOD SPECIMENOrdering Facility: [facility] Address: [address] [place] [address] Performed By: #### 2 4323-8, ####ADKINS LABORATORYCLIA [id number] [place] [address] [place] CO2 [Moles/Vol] 23 mmol/L Normal 22-30 [facility] Comment on above: Order Comment: Luz vaughan Type: BLOOD SPECIMENOrdering Facility: [facility] Address: [address] [place] [address] Performed By: #### 2 4323-8, ####ADKINS LABORATORYCLIA [id number] [place] [address] [place] Creatinine [Mass/Vol] 6.77 mg/dL High 0.73-1.22 [facility] Comment on above: Order Comment: Luz vaughan Type: BLOOD SPECIMENOrdering Facility: [facility] Address: [address] [place] [address] Performed By: #### 2 4323-8, ####ADKINS LABORATORYCLIA [id number] [address] Creatinine and Glomerular filtration rate.predicted panel (S/P/Bld) 8 mL/min/1.73m??? Low >=60 [facility] Comment on above: Order Comment: Luz vaughan Type: BLOOD SPECIMENOrdering Facility: [facility] Address: [address] [place] [address] Result Comment: Breanne mated Glomerular Filtration Rate [...] actual GFR. Performed By: #### 2 4328, ####SHANN[facility] LABORATORYCLIA [id number] [place] [address] [place] Glucose [Mass/Vol] 141 mg/dL High 74-99 [facility] Comment on above: Order Comment: Luz vaughan Type: BLOOD SPECIMENOrdering Facility: [facility] Address: [address] [place] [address] Result Comment: The [place] Diabetes Association (ADA) provides guidance for cutoff [...] Standards of Medical Care in Diabetes 2016, [place] [employer]. Diabetes Care. 2016.39(Suppl 1). Performed By: #### 2 43206-08, ####SHANNON LABORATORYCLIA [id number] [place] [address] [place] Potassium [Moles/Vol] 5.9 mmol/L High 3.7-5.1 [facility] Comment on above: Order Comment: Luz vaughan Type: BLOOD SPECIMENOrdering Facility: [facility] Address: [address] [place] [address] Performed By: #### 2 43206-08, ####SHANNON LABORATORYCLIA [id number] [place] [address] [place] Protein [Mass/Vol] 6.5 g/dL Normal 6.3-8.0 [facility] Comment on above: Order Comment: Luz vaughan Type: BLOOD SPECIMENOrdering Facility: [facility] Address: [address] [place], [place] [address] Performed By: #### 2 43238, ####SHANNON LABORATORYCLIA [id number] [place] [id number] [place] Sodium [Moles/Vol] 141 mmol/L Normal 136-144 [facility] Comment on above: Order Comment: Speci men Type: BLOOD SPECIMENOrdering Facility: [facility] Address: [address] [place], [place] [address] Performed By: #### 2 4323-8, ####ADKINS LABORATORYCLIA [id number] [place] [address] [place] Urea nitrogen [Mass/Vol] 82 mg/dL High 9-24 [facility] Comment on above: Order Comment: Speci men Type: BLOOD SPECIMENOrdering Facility: [facility] Address: [address] [place] [address] Performed By: #### 2 4328, ####ADKINS LABORATORYCLIA [id number] [place] [address] [facility] ED NOTEon 07-10-2024 ED NOTE HNO ID: [id number] Author: ART PAYNE RN Service: ? Author Type: Registered Nurse Type: ED Notes Filed: 07/10/2024 20:41 Note Text: Heads up given to [facility] ED NOTE HNO ID: [id number] Author: SANDRA WHITEHEAD RN Service: Nursing Author Type: Registered Nurse Type: ED Notes Filed: 07/10/2024 16:25 Note Text: Patient speaking to virtual triage doctor [facility] ED PROV NOTEon 07-10-2024 ED PROV NOTE [facility] ED Triage Noteon 07-10-2024 ED Triage Note [facility] Magnesium SerPl-mCncon 07-10 Magnesium [Mass/Vol] 2.3 mg/dL Normal 1.7-2.3 [facility] Comment on above: Order Comment: Speci men Type: BLOOD SPECIMENOrdering Facility: [facility] Address: [address] [place] [address] Performed By: #### 2 4323-8, ####ADKINS LABORATORYCLIA [id number] [place] [address] [facility] [place] NURSING PROGon 04-09-2025 NURSING PROG [facility] US KIDNEY/BLADDERon 07-11-19 25 US KIDNEY/BLADDER [facility] XR CHEST 2V FRONTAL/LATon XR CHEST 2V FRONTAL/LAT [facility] 36on 06-28-2024 36 S: Patient spoke wit h [facility] nurse regarding abnormal labs results being called by the [facility]. Hx: DM B: Onset of symptoms/concern labs were drawn from the [place] office at his appointment on 06/27/24 having an urgent notification at 15:54 was seen in the office for a 2-month follow up A: Bun 79.9 CR 4.3 Potassium 7.1 R: Paging Dr. Scott at 3:55 No further needs at this time. Reason for Disposition Lab or radiology calling with test results Protocols used: [facility]CP Call - [facility] ANES POSTPROC EVALon 025 ANES POSTPROC EVAL Normal [facility] ANES PRE-OPon 05-13-2024 ANES PRE-OP Normal [facility] Colonoscopy Study observatio non 05-13-2024 [facility] Gastrointestinal Endoscopy Patient Name: José Manuel Ashton Procedure Date: 05/13/2024 10:48 AM Date of : 1960 Admit Type: Outpatient Room: [place] [address] Gender: Male Note Status: Finalized Attending MD: Artem Ahmadi MD, [id number] Procedure: Colonoscopy Indications: High risk colon cancer [...] provided to (more content not included)... [employer] [facility] Radiology Study observation (narrative) [facility] HISTORY PHYSICALon 5 HISTORY PHYSICAL Normal [facility] Pathology biopsy report Kade (Tiss)on 05-13-2024 CASE REPORT Normal [facility] Comment on above: Order Comment: Speci men Type: TISSUE SPECIMENOrdering Facility: [facility] Address: [address] [place] [address] Result Comment: Surg ical Pathology Report Case: [id number] Provider: Artem Ahmadi MD Collected: 05/13/2024 11:27 AMOrdering Location: [place] [facility] Received: 05/14/2024 08:40 AMPathologist: Machelle Ignacio MDSpecimens: A) - Colon, Transverse, Polyp, x 3 B) - Colon, Cecum, Polyp, x 2 C) - Colon, Hepatic Flexure, Polyp D) - Rectum, Polyp Performed By: #### 6 6121-5 ####[facility] SERVICESCLIA [id number] DIAGNOSIS COMMENT In parts B and C multiple additional deeper levels have been examined. Normal [facility] Comment on above: Order Comment: Speci men Type: TISSUE SPECIMENOrdering Facility: [facility] Address: [address] [place] [address] Performed By: #### 6 6121-5 ####[facility] HE[facility] SERVICESCLIA [id number] FINAL DIAGNOSIS Normal [facility] Comment on above: Order Comment: Speci men Type: TISSUE SPECIMENOrdering Facility: [facility] Address: [address] [place] [address] Result Comment: A. T ransverse colon polyp (x3), polypectomy:-- Fragments of tubular adenoma.B. Cecum colon polyp (x2), polypectomy:-- Tubular adenoma, see comment.C. Hepatic flexure polyp, polypectomy:-- Polypoid fragment of colonic mucosa with no significant histopathologic abnormalities, see comment.D. Rectum polyp, polypectomy:-- Tubular adenoma. at 1506 EST Performed By: #### 6 6121-5 ####[facility]ORATORYCLIA [id number] [address] STATES [facility] FINAL PERFORMING LAB Normal [facility] Comment on above: Order Comment: Speci men Type: TISSUE SPECIMENOrdering Facility: [facility] Address: [address] [place] [address] Result Comment: Diag nostic interpretation performed at: [facility], [address] [place] [address] CLIA# [id number] Director: Kahlil Lewis MD Performed By: #### 6 6121-5 ####[facility]ORATORYCLIA [id number] [address] GROSS DESCRIPTION Normal [facility] Comment on above: Order Comment: Speci men Type: TISSUE SPECIMENOrdering Facility: [facility] Address: [address] [place] [address] Result Comment: A. C olon, Transverse, PolypReceived [...] submitted entirely in D1.Gross examination performed at [facility], [address] [place] [address] CLIA#[id number] May 14, 2024 2:55 PM Performed By: #### 6 6121-5 ####[facility]ATORYCLIA [id number] [address] OF [facility] VENOUS BLOOD GAS, POC (AK,MH ,MR)on 05-13-2024 Base Excess (POCT) -5 mmol/L Abnormal -2 - 3 mmol/L [facility] CO2 [Moles/Vol] 23 mmol/L Abnormal 24 - 29 mmol/L [facility] Glucose [Mass/Vol] 128 mg/dL Abnormal 70 - 105 mg/dL [facility] HCO3 (Bld) [Moles/Vol] 22.1 mmol/L Abnormal 23.0 - 28.0 mmol/L [facility] Hematocrit (Bld) [Volume fraction] 34 % Abnormal [facility] Hemoglobin (Bld) [Mass/Vol] 11.6 g/dL Abnormal 12.0 - 17.0 g/dL [facility] Interpretation and review of laboratory results Abnormal [facility] Ionized Ca (POCT) 1.28 mmol/L 1.12 - 1.3 2 mmol/L [facility] pCO2,Venous(POCT) 46.4 [facility] pH,Venous(POCT) 7.286 Abnormal [facility] pO2,Venous(POCT) [facility] Potassium [Moles/Vol] 4.4 mmol/L 3.5 - 4.9 mmol/L [facility] Pt Note NEW UNIT CHANGE iCa: md/dL to mmol/L starting 09/30 [facility] sO2 (POCT) <> 60 - 85 % [facility] Sodium [Moles/Vol] 144 mmol/L 138 - 146 mmol/L [facility] Meter ID:[id number] Location:[facility], [address] [place] [address], [address] [place] [address] POINT OF CARE [facility] 36on 04-27-2024 36 S: Patient's sister [...] to answer question Protocols used: Medication Question [id number] Normal [facility] Basic metabolic 2000 panelon 04-26-2024 Anion gap [Moles/Vol] 11 mmol/L Normal 8-15 [facility] Comment on above: Order Comment: Luz vaughan Type: BLOOD SPECIMENOrdering Facility: External Submitter Address: , , Performed By: #### 1 988-5, ####[facility]ORYCLIA [id number] [place] [address] [place] Calcium [Mass/Vol] 9.4 mg/dL Normal 8.5-10.2 [facility] Comment on above: Order Comment: Luz vaughan Type: BLOOD SPECIMENOrdering Facility: External Submitter Address: , , Performed By: #### 1 988-5, ####[facility]ORATORYCLIA [id number] [place] [address] [place] Chloride [Moles/Vol] 108 mmol/L High 98-107 [facility] Comment on above: Order Comment: Luz vaughan Type: BLOOD SPECIMENOrdering Facility: External Submitter Address: , , Performed By: #### 1 988-5, ####[facility]ORATORYCLIA [id number] [place] [address] [place] CO2 [Moles/Vol] 22 mmol/L Normal 22-30 [facility] Comment on above: Order Comment: Luz vaughan Type: BLOOD SPECIMENOrdering Facility: External Submitter Address: , , Performed By: #### 1 988-5, ####[facility]ORATORYCLIA [id number] [place] [address] [place] Creatinine [Mass/Vol] 3.41 mg/dL High 0.73-1.22 [facility] Comment on above: Order Comment: Luz vaughan Type: BLOOD SPECIMENOrdering Facility: External Submitter Address: , , Performed By: #### 1 988-5, ####[facility]ORATORYCLIA [id number] [place] [address] [place] Creatinine and Glomerular filtration rate.predicted panel (S/P/Bld) 19 mL/min/1.73m??? Low >=60 [facility] Comment on above: Order Comment: [...] actual GFR. Performed By: #### 1 988-5, 05066-0 ####[facility]ORATORYCLIA [id number] [place] [address] [place] Glucose [Mass/Vol] 128 mg/dL High 74-99 [facility] Comment on above: Order Comment: Luz vaughan Type: BLOOD SPECIMENOrdering Facility: External Submitter Address: , , Result Comment: The [place] Diabetes Association (ADA) provides guidance for cutoff [...] Standards of Medical Care in Diabetes 2016, [place] [employer]. Diabetes Care. 2016.39(Suppl 1). Performed By: #### 1 988-5, 67655-8 ####[facility]ORATORYCLIA [id number] [place] [id number] [place] Potassium [Moles/Vol] 6.2 mmol/L Critically high 3.7-5.1 [facility] Comment on above: Order Comment: Luz vaughan Type: BLOOD SPECIMENOrdering Facility: External Submitter Address: , , Performed By: #### 1 988-5, 70704-0 ####[facility]ORATORYCLIA [id number] [place], [place] [address] [place] [address] STATES [facility] Sodium [Moles/Vol] 141 mmol/L Normal 136-144 [facility] Comment on above: Order Comment: Speci men Type: BLOOD SPECIMENOrdering Facility: External Submitter Address: , , Performed By: #### 1 988-5, 47189-3 ####[facility]ORATORYCLIA [id number] [address] [place] Urea nitrogen [Mass/Vol] 59 mg/dL High 12-25 [facility] Comment on above: Order Comment: Speci men Type: BLOOD SPECIMENOrdering Facility: External Submitter Address: , , Performed By: #### 1 988-5, 97042-0 ####[facility]ORATORYCLIA [id number] [address] [place] CBC W Auto Differential pane l (Bld)on 04-26-2024 Basophils (Bld) [#/Vol] 10*3/uL Normal <0.11 [facility] Comment on above: Order Comment: Speci men Type: BLOOD SPECIMENOrdering Facility: [facility] Address: [address] [place] [address] Performed By: #### 5 7021-8 ####[facility]ORATORYCLIA [id number] [address] Basophils/100 WBC (Bld) 0.3 % Normal [facility] Comment on above: Order Comment: Speci men Type: BLOOD SPECIMENOrdering Facility: [facility] Address: [address] [place] [address] Performed By: #### 5 7021-8 ####[facility]ORATORYCLIA [id number] [address] Differential cell count method Nom (Bld) Auto Normal [facility] Comment on above: Order Comment: Speci men Type: BLOOD SPECIMENOrdering Facility: [facility] Address: [address] [place] [address] Performed By: #### 5 7021-8 ####[facility]ORATORYCLIA [id number] [place] [address] [place] Eosinophils (Bld) [#/Vol] 0.25 10*3/uL Normal <0.46 [facility] Comment on above: Order Comment: Speci men Type: BLOOD SPECIMENOrdering Facility: [facility] Address: [address] [place] [address] Performed By: #### 5 7021-8 ####[facility]ORATORYCLIA [id number] [address] [place] Eosinophils/100 WBC (Bld) 4.3 % Normal [facility] Comment on above: Order Comment: Speci men Type: BLOOD SPECIMENOrdering Facility: [facility] Address: [address] [place] [address] Performed By: #### 5 7021-8 ####[facility]ORATORYCLIA [id number] [address] [place] Erythrocyte distribution width (RBC) [Ratio] 14.0 % Normal 11.5-15.0 [facility] Comment on above: Order Comment: Speci men Type: BLOOD SPECIMENOrdering Facility: [facility] Address: [address] [place] [address] Performed By: #### 5 7021-8 ####[facility]ORATORYCLIA [id number] [address] [place] Hematocrit (Bld) [Volume fraction] 34.2 % Low 39.0-51.0 [facility] Comment on above: Order Comment: Speci men Type: BLOOD SPECIMENOrdering Facility: [facility] Address: [address] [place] [address] Performed By: #### 5 7021-8 ####[facility]ORATORYCLIA [id number] [address] [place] Hemoglobin (Bld) [Mass/Vol] 11.0 g/dL Low 13.0-17.0 [facility] Comment on above: Order Comment: Speci men Type: BLOOD SPECIMENOrdering Facility: [facility] Address: [address] [place] [address] Performed By: #### 5 7021-8 ####[facility]ORATORYCLIA [id number] [place] [address] [place] Immature granulocytes (Bld) [#/Vol] 0.03 10*3/uL Normal <0.10 [facility] Comment on above: Order Comment: Speci men Type: BLOOD SPECIMENOrdering Facility: [facility] Address: [address] [place] [address] Performed By: #### 5 7021-8 ####[facility]ORATORYCLIA [id number] [address] [place] Immature granulocytes/100 WBC (Bld) 0.5 % Normal [facility] Comment on above: Order Comment: Speci men Type: BLOOD SPECIMENOrdering Facility: [facility] Address: [address] [place] [address] Performed By: #### 5 7021-8 ####[facility]ORATORYCLIA [id number] [place] [address] [place] Lymphocytes (Bld) [#/Vol] 1.35 10*3/uL Normal 1.00-4.00 [facility] Comment on above: Order Comment: Speci men Type: BLOOD SPECIMENOrdering Facility: [facility] Address: [address] [place] [address] Performed By: #### 5 7021-8 ####[facility]ORATORYCLIA [id number] [address] Lymphocytes/100 WBC (Bld) 23.4 % Normal [facility] Comment on above: Order Comment: Speci men Type: BLOOD SPECIMENOrdering Facility: [facility] Address: [address] [place] [address] Performed By: #### 5 7021-8 ####[facility]ORATORYCLIA [id number] [place] [address] [place] MCH (RBC) [Entitic mass] 28.5 pg Normal 26.0-34.0 [facility] Comment on above: Order Comment: Speci men Type: BLOOD SPECIMENOrdering Facility: [facility] Address: [address] [place] [address] Performed By: #### 5 7021-8 ####[facility]ORATORYCLIA [id number] [address] [place] MCHC (RBC) [Mass/Vol] 32.2 g/dL Normal 30.5-36.0 [facility] Comment on above: Order Comment: Speci men Type: BLOOD SPECIMENOrdering Facility: [facility] Address: [address] [place] [address] Performed By: #### 5 7021-8 ####[facility]ORATORYCLIA [id number] [address] [place] MCV (RBC) [Entitic vol] 88.6 fL Normal 80.0-100.0 [facility] Comment on above: Order Comment: Speci men Type: BLOOD SPECIMENOrdering Facility: [facility] Address: [address] [place] [address] Performed By: #### 5 7021-8 ####[facility]ATORYCLIA [id number] [address] [place] Monocytes (Bld) [#/Vol] 0.52 10*3/uL Normal <0.87 [facility] Comment on above: Order Comment: Speci men Type: BLOOD SPECIMENOrdering Facility: [facility] Address: [address] [place] [address] Performed By: #### 5 7021-8 ####[facility]ATORYCLIA [id number] [address] Monocytes/100 WBC (Bld) 9.0 % Normal [facility] Comment on above: Order Comment: Speci men Type: BLOOD SPECIMENOrdering Facility: [facility] Address: [address] [place] [address] Performed By: #### 5 7021-8 ####[facility]ATORYCLIA [id number] [address] [place] Neutrophils (Bld) [#/Vol] 3.61 10*3/uL Normal 1.45-7.50 [facility] Comment on above: Order Comment: Speci men Type: BLOOD SPECIMENOrdering Facility: [facility] Address: [address] [place] [address] Performed By: #### 5 7021-8 ####[facility]ORATORYCLIA [id number] [place] [address] [place] Neutrophils/100 WBC (Bld) 62.5 % Normal [facility] Comment on above: Order Comment: Speci men Type: BLOOD SPECIMENOrdering Facility: [facility] Address: [address] [place] [address] Performed By: #### 5 7021-8 ####[facility]ORATORYCLIA [id number] [place] [address] [place] Nucleated RBC (Bld) [#/Vol] 10*3/uL Normal <0.01 [facility] Comment on above: Order Comment: Speci men Type: BLOOD SPECIMENOrdering Facility: [facility] Address: [address] [place] [address] Performed By: #### 5 7021-8 ####[facility]ORATORYCLIA [id number] [place] [address] [place] Nucleated RBC/100 WBC (Bld) [Ratio] 0.0 /100 WBC Normal [facility] Comment on above: Order Comment: Speci men Type: BLOOD SPECIMENOrdering Facility: [facility] Address: [address] [place] [address] Performed By: #### 5 7021-8 ####[facility]ORATORYCLIA [id number] [place] [address] [place] Platelet mean volume (Bld) [Entitic vol] 9.5 fL Normal 9.0-12.7 [facility] Comment on above: Order Comment: Speci men Type: BLOOD SPECIMENOrdering Facility: [facility] Address: [address] [place] [address] Performed By: #### 5 7021-8 ####[facility]ORATORYCLIA [id number] [place] [address] [place] Platelets (Bld) [#/Vol] 256 10*3/uL Normal 150-400 [facility] Comment on above: Order Comment: Speci men Type: BLOOD SPECIMENOrdering Facility: [facility] Address: [address] [place] [address] Performed By: #### 5 7021-8 ####[facility]ORATORYCLIA [id number] [place], [place] [id number] [place] [address] [place] RBC (Bld) [#/Vol] 3.86 10*6/uL Low 4.20-6.00 [facility] Comment on above: Order Comment: Speci men Type: BLOOD SPECIMENOrdering Facility: [facility] Address: [address] [place] [address] Performed By: #### 5 7021-8 ####[facility]ORATORYCLIA [id number] [address] [place] WBC (Bld) [#/Vol] 5.78 10*3/uL Normal 3.70-11.00 [facility] Comment on above: Order Comment: Speci men Type: BLOOD SPECIMENOrdering Facility: [facility] Address: [address] [place] [address] Performed By: #### 5 7021-8 ####[facility]ORATORYCLIA [id number] [address] [place] CRP SerPl-mCncon 04-26-2024 CRP [Mass/Vol] mg/L Normal <0.9 [facility] Comment on above: Order Comment: Speci men Type: BLOOD SPECIMENOrdering Facility: [facility] Address: [address] [place] [address] Performed By: #### 1 988-5, 58124-8 ####[facility]ORATORYCLIA [id number] [place] [id number] [place] ESR Westergren method (Bld) [Velocity]on 04-26-2024 ESR (Bld) [Velocity] 27 mm/h High 0-15 [facility] Comment on above: Order Comment: Speci men Type: BLOOD SPECIMENOrdering Facility: [facility] Address: [address] [place] [address] Performed By: #### 4 537-7 ####[facility] LABCLIA [id number] [place] [id number] [place] [facility] PROTEIN ELECTROPHORESIS SERU M (P)on 04-26-2024 Albumin [Mass/Vol] 3.47 g/dL Normal 3.43-5.41 [facility] Comment on above: Order Comment: Speci men Type: BLOOD SPECIMENOrdering Facility: [facility] Address: [address] [place] [address] Performed By: #### L [id number] ####[facility] LABCLIA [id number] [place] [address] [place] Alpha 1 globulin Elph [Mass/Vol] 0.31 g/dL Normal 0.18-0.43 [facility] Comment on above: Order Comment: Speci men Type: BLOOD SPECIMENOrdering Facility: [facility] Address: [address] [place] [address] Performed By: #### L [id number] ####[facility] LABCLIA [id number] [address] STATES [facility] Alpha 2 globulin Elph [Mass/Vol] 0.79 g/dL Normal 0.42-0.98 [facility] Comment on above: Order Comment: Speci men Type: BLOOD SPECIMENOrdering Facility: [facility] Address: [address] [place] [address] Performed By: #### L [id number] ####[facility] LABCLIA [id number] [place] [id number] [place] Beta globulin Elph [Mass/Vol] 0.74 g/dL Normal 0.61-1.17 [facility] Comment on above: Order Comment: Speci men Type: BLOOD SPECIMENOrdering Facility: [facility] Address: [address] [place] [address] Performed By: #### L [id number] ####[facility] LABCLIA [id number] [place] [id number] [place] [address] Gamma globulin Elph [Mass/Vol] 0.59 g/dL Normal 0.53-1.51 [facility] Comment on above: Order Comment: Speci men Type: BLOOD SPECIMENOrdering Facility: [facility] Address: [address] [place] [address] Performed By: #### L [id number] ####[facility] LABCLIA [id number] [address] M-PROTEIN LOCATION [facility] Comment on above: Order Comment: Speci men Type: BLOOD SPECIMENOrdering Facility: [facility] Address: [address] [place] [address] Result Comment: Not Applicable. Performed By: #### L [id number] ####[facility] LABCLIA [id number] [address] Protein Fractions [Interp] No definitive M protein is identified on protein electrophoresis. Normal No definitive M protein is identified on protein electrophore sis. [facility] Comment on above: Order Comment: Speci men Type: BLOOD SPECIMENOrdering Facility: [facility] Address: [address] [place] [address] Performed By: #### L [id number] ####[facility] LABCLIA [id number] [address] Protein.monoclonal Elph [Mass/Vol] 0.00 g/dL Normal <=0.00 [facility] Comment on above: Order Comment: Speci men Type: BLOOD SPECIMENOrdering Facility: [facility] Address: [address] [place] [address] Performed By: #### L [id number] ####[facility] LABCLIA [id number] [address] SPE STAFF REVIEW Reviewed by Sebas Ocampo MD, Ph.D ([id number]) [facility] Comment on above: Order Comment: Speci men Type: BLOOD SPECIMENOrdering Facility: [facility] Address: [address] [place] [address] Performed By: #### L [id number] ####[facility] LABIA [id number] [place] [id number] [facility] Prot [facility] 04-26-2024 Protein [Mass/Vol] 5.9 g/dL Low 6.3-8.0 [facility] Comment on above: Order Comment: Speci men Type: BLOOD SPECIMENOrdering Facility: [facility] Address: [address] [place] [address] Performed By: #### 2 885-2 ####[facility] [id number] [address] [place] CNPNon 02-20-2024 CNPN Normal [facility] 25(OH)D3 [facility] 2023 25-hydroxyvitamin D3 [Mass/Vol] 17.5 ng/mL Low 31.0-80.0 [facility] Comment on above: Order Comment: Speci men Type: BLOOD SPECIMENOrdering Facility: External Submitter Address: , , Performed By: #### 1 989-3 ####[facility] [id number] [address] STATES [place] ALBUMIN/CREATININE RATIO, UR INEon 01-24-2024 Albumin DL <= 20 mg/L (U) [Mass/Vol] mg/dL Normal [facility] Comment on above: Order Comment: Speci men Type: URINE SPECIMENOrdering Facility: External Submitter Address: , , Performed By: #### U ACR ####[facility] LABIA [id number] [address] [place] Albumin/Creatinine (U) [Mass ratio] >4641 High <30 [facility] Comment on above: Order Comment: Speci men Type: URINE SPECIMENOrdering Facility: External Submitter Address: , , Result Comment: Adul t Male and Female Nephrotic Criteria:<30 mg/g is considered normal to mildly rlajpukht01-721 mg/g is considered moderately increased>300 mg/g is considered severely increasedKDIGO. (2013). KDIGO 2012 Clinical Practice Guideline for the Evaluation and Management of Chronic Kidney Disease. Official Journal of the International Society of Nephrology, 3(1), 1-150. Performed By: #### U ACR ####[facility] LABCLIA [id number] [address] Creatinine (U) [Mass/Vol] 94.8 mg/dL Normal 20.0-300.0 [facility] Comment on above: Order Comment: Speci men Type: URINE SPECIMENOrdering Facility: External Submitter Address: , , Performed By: #### U ACR ####[facility] LABCLIA [id number] [address] CBC W Auto Differential pane l (Bld)on 01-24-2024 Basophils (Bld) [#/Vol] 10*3/uL Normal <0.11 [facility] Comment on above: Order Comment: Luz vaughan Type: BLOOD SPECIMENOrdering Facility: External Submitter Address: , , Performed By: #### 5 7021-8 ####[facility]ORATORYCLIA [id number] [address] Basophils/100 WBC (Bld) 0.3 % Normal [facility] Comment on above: Order Comment: Luz vaughan Type: BLOOD SPECIMENOrdering Facility: External Submitter Address: , , Performed By: #### 5 7021-8 ####[facility]ORATORYCLIA [id number] [address] Differential cell count method Nom (Bld) Auto Normal [facility] Comment on above: Order Comment: Luz vaughan Type: BLOOD SPECIMENOrdering Facility: External Submitter Address: , , Performed By: #### 5 7021-8 ####[facility] LABORATORYCLIA [id number] [address] STATES OF [facility] Eosinophils (Bld) [#/Vol] 0.14 10*3/uL Normal <0.46 [facility] Comment on above: Order Comment: Speci men Type: BLOOD SPECIMENOrdering Facility: External Submitter Address: , , Performed By: #### 5 7021-8 ####[facility]ORATORYCLIA [id number] [address] Eosinophils/100 WBC (Bld) 2.4 % Normal [facility] Comment on above: Order Comment: Speci men Type: BLOOD SPECIMENOrdering Facility: External Submitter Address: , , Performed By: #### 5 7021-8 ####[facility]ORATORYCLIA [id number] [address] Erythrocyte distribution width (RBC) [Ratio] 14.0 % Normal 11.5-15.0 [facility] Comment on above: Order Comment: Speci men Type: BLOOD SPECIMENOrdering Facility: External Submitter Address: , , Performed By: #### 5 7021-8 ####[facility]ORATORYCLIA [id number] [address] Hematocrit (Bld) [Volume fraction] 39.2 % Normal 39.0-51.0 [facility] Comment on above: Order Comment: Speci men Type: BLOOD SPECIMENOrdering Facility: External Submitter Address: , , Performed By: #### 5 7021-8 ####[facility]ORATORYCLIA [id number] [address] Hemoglobin (Bld) [Mass/Vol] 12.6 g/dL Low 13.0-17.0 [facility] Comment on above: Order Comment: Speci men Type: BLOOD SPECIMENOrdering Facility: External Submitter Address: , , Performed By: #### 5 7021-8 ####[facility]ORATORYCLIA [id number] [address] Immature granulocytes (Bld) [#/Vol] 0.03 10*3/uL Normal <0.10 [facility] Comment on above: Order Comment: Speci men Type: BLOOD SPECIMENOrdering Facility: External Submitter Address: , , Performed By: #### 5 7021-8 ####[facility]ORATORYCLIA [id number] [address] Immature granulocytes/100 WBC (Bld) 0.5 % Normal [facility] Comment on above: Order Comment: Speci men Type: BLOOD SPECIMENOrdering Facility: External Submitter Address: , , Performed By: #### 5 7021-8 ####[facility]ORATORYCLIA [id number] [address] Lymphocytes (Bld) [#/Vol] 1.26 10*3/uL Normal 1.00-4.00 [facility] Comment on above: Order Comment: Speci men Type: BLOOD SPECIMENOrdering Facility: External Submitter Address: , , Performed By: #### 5 7021-8 ####[facility] LABORATORYCLIA [id number] [address] Lymphocytes/100 WBC (Bld) 21.2 % Normal [facility] Comment on above: Order Comment: Speci men Type: BLOOD SPECIMENOrdering Facility: External Submitter Address: , , Performed By: #### 5 7021-8 ####[facility] LABORATORYCLIA [id number] [address] MCH (RBC) [Entitic mass] 27.1 pg Normal 26.0-34.0 [facility] Comment on above: Order Comment: Speci men Type: BLOOD SPECIMENOrdering Facility: External Submitter Address: , , Performed By: #### 5 7021-8 ####[facility] LABORATORYCLIA [id number] [address] MCHC (RBC) [Mass/Vol] 32.1 g/dL Normal 30.5-36.0 [facility] Comment on above: Order Comment: Speci men Type: BLOOD SPECIMENOrdering Facility: External Submitter Address: , , Performed By: #### 5 7021-8 ####[facility] LABORATORYCLIA [id number] [address] MCV (RBC) [Entitic vol] 84.3 fL Normal 80.0-100.0 [facility] Comment on above: Order Comment: Speci men Type: BLOOD SPECIMENOrdering Facility: External Submitter Address: , , Performed By: #### 5 7021-8 ####[facility] LABORATORYCLIA [id number] [address] [place] Monocytes (Bld) [#/Vol] 0.51 10*3/uL Normal <0.87 [facility] Comment on above: Order Comment: Speci men Type: BLOOD SPECIMENOrdering Facility: External Submitter Address: , , Performed By: #### 5 7021-8 ####[facility] LABORATORYCLIA [id number] [address] Monocytes/100 WBC (Bld) 8.6 % Normal [facility] Comment on above: Order Comment: Speci men Type: BLOOD SPECIMENOrdering Facility: External Submitter Address: , , Performed By: #### 5 7021-8 ####[facility] LABORATORYCLIA [id number] [address] Neutrophils (Bld) [#/Vol] 3.99 10*3/uL Normal 1.45-7.50 [facility] Comment on above: Order Comment: Speci men Type: BLOOD SPECIMENOrdering Facility: External Submitter Address: , , Performed By: #### 5 7021-8 ####[facility] LABORATORYCLIA [id number] [address] Neutrophils/100 WBC (Bld) 67.0 % Normal [facility] Comment on above: Order Comment: Speci men Type: BLOOD SPECIMENOrdering Facility: External Submitter Address: , , Performed By: #### 5 7021-8 ####[facility] LABORATORYCLIA [id number] [address] Nucleated RBC (Bld) [#/Vol] 10*3/uL Normal <0.01 [facility] Comment on above: Order Comment: Speci men Type: BLOOD SPECIMENOrdering Facility: External Submitter Address: , , Performed By: #### 5 7021-8 ####[facility] LABORATORYCLIA [id number] [address] Nucleated RBC/100 WBC (Bld) [Ratio] 0.0 /100 WBC Normal [facility] Comment on above: Order Comment: Speci men Type: BLOOD SPECIMENOrdering Facility: External Submitter Address: , , Performed By: #### 5 7021-8 ####[facility] LABORATORYCLIA [id number] [address] Platelet mean volume (Bld) [Entitic vol] 8.8 fL Low 9.0-12.7 [facility] Comment on above: Order Comment: Speci men Type: BLOOD SPECIMENOrdering Facility: External Submitter Address: , , Performed By: #### 5 7021-8 ####[facility] LABORATORYCLIA [id number] [address] Platelets (Bld) [#/Vol] 289 10*3/uL Normal 150-400 [facility] Comment on above: Order Comment: Speci men Type: BLOOD SPECIMENOrdering Facility: External Submitter Address: , , Performed By: #### 5 7021-8 ####[facility] LABORATORYCLIA [id number] [address] [place] RBC (Bld) [#/Vol] 4.65 10*6/uL Normal 4.20-6.00 [facility] Comment on above: Order Comment: Speci men Type: BLOOD SPECIMENOrdering Facility: External Submitter Address: , , Performed By: #### 5 7021-8 ####[facility] LABORATORYCLIA [id number] [address] WBC (Bld) [#/Vol] 5.95 10*3/uL Normal 3.70-11.00 [facility] Comment on above: Order Comment: Speci men Type: BLOOD SPECIMENOrdering Facility: External Submitter Address: , , Performed By: #### 5 7021-8 ####[facility] LABORATORYCLIA [id number] [address] Magnesium SerPl-mCncon 01-23 Magnesium [Mass/Vol] 2.0 mg/dL Normal 1.7-2.3 [facility] Comment on above: Order Comment: Speci men Type: BLOOD SPECIMENOrdering Facility: External Submitter Address: , , Performed By: #### 1 9123-9, , 3083-04 ####[facility] LABORATORYCLIA [id number] [place] [address] [place] PTH-Intact SerPl-ncon 10-2 Parathyrin.intact [Mass/Vol] 79 pg/mL High 15-65 [facility] Comment on above: Order Comment: Speci men Type: BLOOD SPECIMENOrdering Facility: External Submitter Address: , , Performed By: #### 2 731-8 ####[facility] LABCLIA [id number] [place] [address] [address] [place] Renal function 2000 panelon 01-24-2024 Albumin [Mass/Vol] 4.0 g/dL Normal 3.9-4.9 [facility] Comment on above: Order Comment: Speci men Type: BLOOD SPECIMENOrdering Facility: External Submitter Address: , , Performed By: #### 1 9123-9, , 3083-04 ####[facility] LABORATORYCLIA [id number] [address] Anion gap [Moles/Vol] 10 mmol/L Normal 8-15 [facility] Comment on above: Order Comment: Speci men Type: BLOOD SPECIMENOrdering Facility: External Submitter Address: , , Performed By: #### 1 9123-9, , 3083-04 ####[facility] LABORATORYCLIA [id number] [place], [place] [address] [place] [address] Calcium [Mass/Vol] 9.7 mg/dL Normal 8.5-10.2 [facility] Comment on above: Order Comment: Speci men Type: BLOOD SPECIMENOrdering Facility: External Submitter Address: , , Performed By: #### 1 9123-9, 15785-2, 3083-04 ####[facility] LABORATORYCLIA [id number] [address] Chloride [Moles/Vol] 106 mmol/L Normal 98-107 [facility] Comment on above: Order Comment: Speci men Type: BLOOD SPECIMENOrdering Facility: External Submitter Address: , , Performed By: #### 1 9123-9, , 3083-04 ####[facility] LABORATORYCLIA [id number] [address] CO2 [Moles/Vol] 26 mmol/L Normal 22-30 [facility] Comment on above: Order Comment: Luz vaughan Type: BLOOD SPECIMENOrdering Facility: External Submitter Address: , , Performed By: #### 1 9123-9, 71253-7, 3083-04 ####[facility] LABORATORYCLIA [id number] [address] Creatinine [Mass/Vol] 2.63 mg/dL High 0.73-1.22 [facility] Comment on above: Order Comment: Luz vaughan Type: BLOOD SPECIMENOrdering Facility: External Submitter Address: , , Performed By: #### 1 9123-9, 05116-1, 3083-04 ####[facility] LABORATORYCLIA [id number] [address] Creatinine and Glomerular filtration rate.predicted panel (S/P/Bld) 26 mL/min/1.73m??? Low >=60 [facility] Comment on above: Order Comment: [...] actual GFR. Performed By: #### 1 9123-9, 15588-6, 3083-04 ####[facility] LABORATORYCLIA [id number] [address] Glucose [Mass/Vol] 151 mg/dL High 74-99 [facility] Comment on above: Order Comment: Luz vaughan Type: BLOOD SPECIMENOrdering Facility: External Submitter Address: , , Result Comment: The [place] Diabetes Association (ADA) provides guidance for cutoff [...] Standards of Medical Care in Diabetes 2016, [place] [employer]. Diabetes Care. 2016.39(Suppl 1). Performed By: #### 1 9123-9, 97901-7, 3083-04 ####[facility] LABORATORYCLIA [id number] [place] [address] [place] Phosphate [Mass/Vol] 3.9 mg/dL Normal 2.7-4.8 [facility] Comment on above: Order Comment: Luz vaughan Type: BLOOD SPECIMENOrdering Facility: External Submitter Address: , , Performed By: #### 1 91239, , 3083-04 ####[facility] LABORATORYCLIA [id number] [place] [address] [place] Potassium [Moles/Vol] 4.9 mmol/L Normal 3.7-5.1 [facility] Comment on above: Order Comment: Luz vaughan Type: BLOOD SPECIMENOrdering Facility: External Submitter Address: , , Performed By: #### 1 9123-9, 15004-0, 3083-04 ####[facility] LABORATORYCLIA [id number] [place] [address] [place] Sodium [Moles/Vol] 142 mmol/L Normal 136-144 [facility] Comment on above: Order Comment: Luz vaughan Type: BLOOD SPECIMENOrdering Facility: External Submitter Address: , , Performed By: #### 1 9123-9, 83247-7, 3083-04 ####[facility] LABORATORYCLIA [id number] [place] [address] [place] Urea nitrogen [Mass/Vol] 47 mg/dL High 9-24 [facility] Comment on above: Order Comment: Luz vaughan Type: BLOOD SPECIMENOrdering Facility: External Submitter Address: , , Performed By: #### 1 9123-9, 43466-2, 3084-1 ####[facility] LABORATORYCLIA [id number] [address] [place] URINALYSIS, REFLEX MICROSCOP ICon 01-24-2024 Bilirubin Ql (U) Negative Normal Negative [facility] Comment on above: Order Comment: Speci men Type: URINE SPECIMENOrdering Facility: External Submitter Address: , , Performed By: #### L [id number] ####[facility] LABORATORYCLIA [id number] [address] Clarity (Unsp spec) Clear Normal Clear [facility] Comment on above: Order Comment: Speci men Type: URINE SPECIMENOrdering Facility: External Submitter Address: , , Performed By: #### L [id number] ####[facility] LABORATORYCLIA [id number] [address] Color (U) Yellow Normal Yellow [facility] Comment on above: Order Comment: Speci men Type: URINE SPECIMENOrdering Facility: External Submitter Address: , , Performed By: #### L [id number] ####[facility] LABORATORYCLIA [id number] [address] Glucose Test strip (U) [Mass/Vol] 1+ Abnormal Negative [facility] Comment on above: Order Comment: Speci men Type: URINE SPECIMENOrdering Facility: External Submitter Address: , , Performed By: #### L [id number] ####[facility] LABORATORYCLIA [id number] [address] Granular casts (Urine sed) [#/Area] 1-3 /LPF Abnormal 0 /LPF [facility] Comment on above: Order Comment: Speci men Type: URINE SPECIMENOrdering Facility: External Submitter Address: , , Performed By: #### L [id number] ####[facility] LABORATORYCLIA [id number] [address] Hemoglobin Ql (U) 2+ Abnormal Negative [facility] Comment on above: Order Comment: Speci men Type: URINE SPECIMENOrdering Facility: External Submitter Address: , , Performed By: #### L [id number] ####[facility] LABORATORYCLIA [id number] [address] Ketones Ql (U) Negative Normal Negative [facility] Comment on above: Order Comment: Speci men Type: URINE SPECIMENOrdering Facility: External Submitter Address: , , Performed By: #### L [id number] ####[facility] LABORATORYCLIA [id number] [address] Leukocyte esterase Test strip Ql (U) Negative Normal Negative [facility] Comment on above: Order Comment: Speci men Type: URINE SPECIMENOrdering Facility: External Submitter Address: , , Performed By: #### L [id number] ####[facility] LABORATORYCLIA [id number] [address] Nitrite Ql (U) Negative Normal Negative [facility] Comment on above: Order Comment: Speci men Type: URINE SPECIMENOrdering Facility: External Submitter Address: , , Performed By: #### L [id number] ####[facility] LABORATORYCLIA [id number] [address] pH (U) 6.0 [pH] Normal 5.0-8.0 [facility] Comment on above: Order Comment: Speci men Type: URINE SPECIMENOrdering Facility: External Submitter Address: , , Performed By: #### L [id number] ####[facility] LABORATORYCLIA [id number] [address] Protein (U) [Mass/Vol] 3+ Abnormal Negative [facility] Comment on above: Order Comment: Speci men Type: URINE SPECIMENOrdering Facility: External Submitter Address: , , Performed By: #### L [id number] ####[facility] LABORATORYCLIA [id number] [address] RBC LM.HPF (Urine sed) [#/Area] 3-5 /HPF Abnormal 0-3 /HPF [facility] Comment on above: Order Comment: Speci men Type: URINE SPECIMENOrdering Facility: External Submitter Address: , , Performed By: #### L [id number] ####[facility] LABORATORYCLIA [id number] [address] [place] Specific gravity (U) [Rel density] 1.025 Normal 1.005-1.030 [facility] Comment on above: Order Comment: Speci men Type: URINE SPECIMENOrdering Facility: External Submitter Address: , , Performed By: #### L [id number] ####[facility] LABORATORYCLIA [id number] [address] [place] Urobilinogen Ql (U) 0.2 EU/dL Normal 0.2-1.0 EU/dL [facility] Comment on above: Order Comment: Speci men Type: URINE SPECIMENOrdering Facility: External Submitter Address: , , Performed By: #### L [id number] ####[facility] LABORATORYCLIA [id number] [address] [place] WBC LM.HPF (Urine sed) [#/Area] 0-5 /HPF Normal 0-5 /HPF [facility] Comment on above: Order Comment: Speci men Type: URINE SPECIMENOrdering Facility: External Submitter Address: , , Performed By: #### L [id number] ####[facility] LABORATORYCLIA [id number] [address] [place] Urate SerPl-mCncon Urate [Mass/Vol] 5.6 mg/dL Normal 4.0-8.1 [facility] Comment on above: Order Comment: Speci men Type: BLOOD SPECIMENOrdering Facility: External Submitter Address: , , Performed By: #### 1 9123-9, 33097-2, 3084-1 ####[facility] LABORATORYCLIA [id number] [place] [address] [place] CNPNon 12-22-2023 CNPN [facility] CNPNon 12-18-2023 CNPN [facility] [id number] 10-20-2023 [id number] [facility] CNDSon 10-20-2023 CNDS [facility] NURSING PROGon 10-20-2023 NURSING PROG [facility] SOCIAL WORKon 10-20-2023 SOCIAL WORK Normal [facility] SOCIAL WORK Normal [facility] POTASSIUMon 10-19-2023 Potassium [Moles/Vol] 4.6 mmol/L Normal 3.7-5.1 [facility] Comment on above: Order Comment: Speci men Type: BLOOD SPECIMENOrdering Facility: [facility] Address: [address] [place] [address] Performed By: #### K 1 ####[facility] LABCLIA [id number] [place] [address] [place] SOCIAL WORKon 10-19-2023 [...] Comment: Speci men Type: BLOOD SPECIMENOrdering Facility: [facility] Address: [address] [place] [address] Performed By: #### 2 4321-2 ####[facility] LABCLIA [id number] [place] [address] [place] Calcium [Mass/Vol] 8.7 mg/dL Normal 8.5-10.2 [facility] Comment on above: Order Comment: Speci men Type: BLOOD SPECIMENOrdering Facility: [facility] Address: [address] [place] [address] Performed By: #### 2 4321-2 ####[facility] LABCLIA [id number] [place] [address] [place] Chloride [Moles/Vol] 105 mmol/L Normal 98-107 [facility] Comment on above: Order Comment: Speci men Type: BLOOD SPECIMENOrdering Facility: [facility] Address: [address] [place] [address] Performed By: #### 2 4321-2 ####[facility] LABCLIA [id number] [place] [address] [place] CO2 [Moles/Vol] 26 mmol/L Normal 22-30 [facility] Comment on above: Order Comment: Speci clement Type: BLOOD SPECIMENOrdering Facility: [facility] Address: [address] [place] [address] Performed By: #### 2 4321-2 ####[facility] LABCLIA [id number] [place] [address] [place] Creatinine [Mass/Vol] 2.26 mg/dL High 0.73-1.22 [facility] Comment on above: Order Comment: Speci men Type: BLOOD SPECIMENOrdering Facility: [facility] Address: [address] [place] [address] Performed By: #### 2 4321-2 ####[facility] LABCLIA [id number] [place] [address] [facility] Creatinine and Glomerular filtration rate.predicted panel (S/P/Bld) 32 mL/min/1.73m??? Low >=60 [facility] Comment on above: Order Comment: Speci men Type: BLOOD SPECIMENOrdering Facility: [facility] Address: [address] [place] [address] Result Comment: Breanne mated Glomerular Filtration Rate [...] actual GFR. Performed By: #### 2 4321-2 ####[facility] LABCLIA [id number] [place] [address] [place] Glucose [Mass/Vol] 100 mg/dL High 74-99 [facility] Comment on above: Order Comment: Speci men Type: BLOOD SPECIMENOrdering Facility: [facility] Address: [address] [place] [address] Result Comment: The [place] Diabetes Association (ADA) provides guidance for cutoff [...] Standards of Medical Care in Diabetes 2016, [place] [employer]. Diabetes Care. 2016.39(Suppl 1). Performed By: #### 2 4321-2 ####[facility] LABCLIA [id number] [place] [address] [place] Potassium [Moles/Vol] 5.8 mmol/L High 3.7-5.1 [facility] Comment on above: Order Comment: Speci men Type: BLOOD SPECIMENOrdering Facility: [facility] Address: [address] [place] [address] Performed By: #### 2 4321-2 ####[facility] LABCLIA [id number] [place] [address] [place] Sodium [Moles/Vol] 140 mmol/L Normal 136-144 [facility] Comment on above: Order Comment: Speci men Type: BLOOD SPECIMENOrdering Facility: [facility] Address: [address] [place] [address] Performed By: #### 2 4321-2 ####[facility] LABCLIA [id number] [place] [address] [place] Urea nitrogen [Mass/Vol] 44 mg/dL High 9-24 [facility] Comment on above: Order Comment: Speci men Type: BLOOD SPECIMENOrdering Facility: [facility] Address: [address] [place] [address] Performed By: #### 2 4321-2 ####[facility] [place] LABCLIA [id number] [place] [address] [facility] CBC panel Auto (Bld)on 10-17 Erythrocyte distribution width (RBC) [Ratio] 13.9 % Normal 11.5-15.0 [facility] Comment on above: Order Comment: Speci men Type: BLOOD SPECIMENOrdering Facility: [facility] Address: [address] [place] [address] Performed By: #### 5 8410-2 ####[facility] LABCLIA [id number] [place] [address] [facility] Hematocrit (Bld) [Volume fraction] 28.1 % Low 39.0-51.0 [facility] Comment on above: Order Comment: Speci men Type: BLOOD SPECIMENOrdering Facility: [facility] Address: [address] [place] [address] Performed By: #### 5 8410-2 ####[facility] LABCLIA [id number] [address] Hemoglobin (Bld) [Mass/Vol] 8.7 g/dL Low 13.0-17.0 [facility] Comment on above: Order Comment: Speci men Type: BLOOD SPECIMENOrdering Facility: [facility] Address: [address] [place] [address] Performed By: #### 5 8410-2 ####[facility] LABCLIA [id number] [place] [address] [facility] MCH (RBC) [Entitic mass] 27.4 pg Normal 26.0-34.0 [facility] Comment on above: Order Comment: Speci men Type: BLOOD SPECIMENOrdering Facility: [facility] Address: [address] [place] [address] Performed By: #### 5 8410-2 ####[facility] LABCLIA [id number] [place] [address] [place] MCHC (RBC) [Mass/Vol] 31.0 g/dL Normal 30.5-36.0 [facility] Comment on above: Order Comment: Speci men Type: BLOOD SPECIMENOrdering Facility: [facility] Address: [address] [place] [address] Performed By: #### 5 8410-2 ####[facility] LABCLIA [id number] [place] [address] [place] [facility] MCV (RBC) [Entitic vol] 88.4 fL Normal 80.0-100.0 [facility] Comment on above: Order Comment: Speci men Type: BLOOD SPECIMENOrdering Facility: [facility] Address: [address] [place] [address] Performed By: #### 5 8410-2 ####[facility] LABCLIA [id number] [place] [address] [place] Platelet mean volume (Bld) [Entitic vol] 8.6 fL Low 9.0-12.7 [facility] Comment on above: Order Comment: Speci men Type: BLOOD SPECIMENOrdering Facility: [facility] Address: [address] [place] [address] Performed By: #### 5 8410-2 ####[facility] LABCLIA [id number] [place] [address] [place] Platelets (Bld) [#/Vol] 438 10*3/uL High 150-400 [facility] Comment on above: Order Comment: Speci men Type: BLOOD SPECIMENOrdering Facility: [facility] Address: [address] [place] [address] Performed By: #### 5 8410-2 ####[facility] LABCLIA [id number] [place] [address] [place] RBC (Bld) [#/Vol] 3.18 10*6/uL Low 4.20-6.00 [facility] Comment on above: Order Comment: Speci men Type: BLOOD SPECIMENOrdering Facility: [facility] Address: [address] [place] [address] Performed By: #### 5 8410-2 ####[facility] LABCLIA [id number] [place] [address] [place] WBC (Bld) [#/Vol] 5.65 10*3/uL Normal 3.70-11.00 [facility] Comment on above: Order Comment: Speci men Type: BLOOD SPECIMENOrdering Facility: [facility] Address: [address] [place] [address] Performed By: #### 5 8410-2 ####[facility] LABCLIA [id number] [place] [address] [facility] [place] NURSING PROGon 10-18-2023 NURSING PROG Normal [facility] POTASSIUMon 10-18-2023 Potassium [Moles/Vol] 5.4 mmol/L High 3.7-5.1 [facility] Comment on above: Order Comment: Speci men Type: BLOOD SPECIMENOrdering Facility: [facility] Address: [address] [place] [address] Performed By: #### K 1 ####[facility] LABCLIA [id number] [place] [address] [facility] Potassium [Moles/Vol] 5.5 mmol/L High 3.7-5.1 [facility] Comment on above: Order Comment: Speci men Type: BLOOD SPECIMENOrdering Facility: [facility] Address: [address] [place] [address] Performed By: #### K 1 ####[facility] LABCLIA [id number] [place] [address] [facility] [place] SOCIAL WORKon 10-18-2023 [...] Comment: Speci men Type: BLOOD SPECIMENOrdering Facility: [facility] Address: [address] [place] [address] Performed By: #### 2 4321-2, 2276-4, 38751-4, 2132-9, 2284-8 ####[facility] LABORATORYCLIA [id number] [place] [address] [place] Calcium [Mass/Vol] 8.7 mg/dL Normal 8.5-10.2 [facility] Comment on above: Order Comment: Speci men Type: BLOOD SPECIMENOrdering Facility: [facility] Address: [address] [place] [address] Performed By: #### 2 4321-2, 2276-4, 70734-6, 2131-9, 2283-8 ####[facility] LABORATORYCLIA [id number] [place] [address] [place] Chloride [Moles/Vol] 103 mmol/L Normal 98-107 [facility] Comment on above: Order Comment: Speci men Type: BLOOD SPECIMENOrdering Facility: [facility] Address: [address] [place], [place] [address] Performed By: #### 2 4321-2, 6-4, 49955-6, 2131-9, 2283-8 ####[facility] LABORATORYCLIA [id number] [place] [address] [place] CO2 [Moles/Vol] 26 mmol/L Normal 22-30 [facility] Comment on above: Order Comment: Speci men Type: BLOOD SPECIMENOrdering Facility: [facility] Address: [address] [place], [place] [address] Performed By: #### 2 4321-2, 2276-4, 44463-0, 2131-9, 2283-8 ####[facility] LABORATORYCLIA [id number] [place] [address] [place] Creatinine [Mass/Vol] 2.35 mg/dL High 0.73-1.22 [facility] Comment on above: Order Comment: Speci men Type: BLOOD SPECIMENOrdering Facility: [facility] Address: [address] [place] [address] Performed By: #### 2 4321-2, 2276-4, 00069-6, 2131-9, 2283-8 ####[facility] LABORATORYCLIA [id number] [place] [address] [facility] [place] Creatinine and Glomerular filtration rate.predicted panel (S/P/Bld) 30 mL/min/1.73m??? Low >=60 [facility] Comment on above: Order Comment: Speci men Type: BLOOD SPECIMENOrdering Facility: [facility] Address: [address] [place] [address] Result Comment: Breanne mated Glomerular Filtration Rate [...] GFR. Performed By: #### 2 4321-2, 6-4, 89125-4, 2131-12, 2283-11 ####[facility] LABORATORYCLIA [id number] [place] [address] [place] Glucose [Mass/Vol] 149 mg/dL High 74-99 [facility] Comment on above: Order Comment: Luz vaughan Type: BLOOD SPECIMENOrdering Facility: [facility] Address: [address] [place] [address] Result Comment: The [place] Diabetes [employer] (ADA) provides guidance for cutoff [...] Standards of Medical Care in Diabetes 2016, [place] [employer]. Diabetes Care. 2016.39(Suppl 1). Performed By: #### 2 4321-2, 6-4, 86110-3, 2131-12, 2283-11 ####[facility]ORATORYCLIA [id number] [place] [address] [place] Potassium [Moles/Vol] 5.4 mmol/L High 3.7-5.1 [facility] Comment on above: Order Comment: Luz vaughan Type: BLOOD SPECIMENOrdering Facility: [facility] Address: [address] [place], [place] [address] Performed By: #### 2 4321-2, 6-4, 96836-9, 2131-12, 2283-11 ####[facility]ATORYCLIA [id number] [place] [address] [place] Sodium [Moles/Vol] 141 mmol/L Normal 136-144 [facility] Comment on above: Order Comment: Speci men Type: BLOOD SPECIMENOrdering Facility: [facility] Address: [address] [place] [address] Performed By: #### 2 4321-2, 2275-4, 89407-8, 9, 2283-11 ####[facility]ATORYCLIA [id number] [place] [address] [place] Urea nitrogen [Mass/Vol] 42 mg/dL High 9- [facility] Comment on above: Order Comment: Speci men Type: BLOOD SPECIMENOrdering Facility: [facility] Address: [address] [place] [address] Performed By: #### 2 4321-2, 2275-4, 27371-3, 2131-12, 2283-11 ####[facility]ATORYCLIA [id number] [place] [address] [place] CASE MANAGEMon 10-09-2023 CASE MANAGEM Normal [facility] CBC panel Auto (Bld)on 10-08 Erythrocyte distribution width (RBC) [Ratio] 13.5 % Normal 11.5-15.0 [facility] Comment on above: Order Comment: Speci men Type: BLOOD SPECIMENOrdering Facility: [facility] Address: [address] [place], [place] [address] Performed By: #### 5 8410-2 ####[facility] LABCLIA [id number] [place] [address] [place] Hematocrit (Bld) [Volume fraction] 30.2 % Low 39.0-51.0 [facility] Comment on above: Order Comment: Speci men Type: BLOOD SPECIMENOrdering Facility: [facility] Address: [address] [place] [address] Performed By: #### 5 8410-2 ####[facility] LABCLIA [id number] [facility] [place] [address] [facility] Hemoglobin (Bld) [Mass/Vol] 9.3 g/dL Low 13.0-17.0 [facility] Comment on above: Order Comment: Speci men Type: BLOOD SPECIMENOrdering Facility: [facility] Address: [address] [place] [address] Performed By: #### 5 8410-2 ####[facility] LABCLIA [id number] [facility] [place] [address] [facility] MCH (RBC) [Entitic mass] 27.4 pg Normal 26.0-34.0 [facility] Comment on above: Order Comment: Speci men Type: BLOOD SPECIMENOrdering Facility: [facility] Address: [address] [place] [address] Performed By: #### 5 8410-2 ####[facility] LABCLIA [id number] [place], [place] [address] [place] [address] MCHC (RBC) [Mass/Vol] 30.8 g/dL Normal 30.5-36.0 [facility] Comment on above: Order Comment: Speci men Type: BLOOD SPECIMENOrdering Facility: [facility] Address: [address] [place] [address] Performed By: #### 5 8410-2 ####[facility] LABCLIA [id number] [place] [address] [place] [facility] MCV (RBC) [Entitic vol] 89.1 fL Normal 80.0-100.0 [facility] Comment on above: Order Comment: Speci men Type: BLOOD SPECIMENOrdering Facility: [facility] Address: [address] [place] [address] Performed By: #### 5 8410-2 ####[facility] LABCLIA [id number] [place] [address] [facility] Platelet mean volume (Bld) [Entitic vol] 8.9 fL Low 9.0-12.7 [facility] Comment on above: Order Comment: Speci men Type: BLOOD SPECIMENOrdering Facility: [facility] Address: [address] [place] [address] Performed By: #### 5 8410-2 ####[facility] LABCLIA [id number] [place] [address] [facility] Platelets (Bld) [#/Vol] 315 10*3/uL Normal 150-400 [facility] Comment on above: Order Comment: Speci men Type: BLOOD SPECIMENOrdering Facility: [facility] Address: [address] [place] [address] Performed By: #### 5 8410-2 ####[facility] LABCLIA [id number] [place] [address] [place] [facility] RBC (Bld) [#/Vol] 3.39 10*6/uL Low 4.20-6.00 [facility] Comment on above: Order Comment: Speci men Type: BLOOD SPECIMENOrdering Facility: [facility] Address: [address] [place] [address] Performed By: #### 5 8410-2 ####[facility] LABCLIA [id number] [place] [address] [facility] [place] WBC (Bld) [#/Vol] 7.71 10*3/uL Normal 3.70-11.00 [facility] Comment on above: Order Comment: Speci men Type: BLOOD SPECIMENOrdering Facility: [facility] Address: [address] [place] [address] Performed By: #### 5 8410-2 ####[facility] LABCLIA [id number] [place] [address] [facility] Ferritin SerPl-mCncon 2023 Ferritin [Mass/Vol] 712.0 ng/mL High 30.3-565.7 [facility] Comment on above: Order Comment: Speci men Type: BLOOD SPECIMENOrdering Facility: [facility] Address: [address] [place] [address] [place] [address] Performed By: #### 2 4321-2, 6-4, 14461-8, 9, 8 ####[facility]ORATORYCLIA [id number] [place], [place] [address] [place] [address] STATES [facility] Folate SerPl-ncon 10-09-19 24 Folate [Mass/Vol] 7.0 ng/mL Normal >4.7 [facility] Comment on above: Order Comment: Speci men Type: BLOOD SPECIMENOrdering Facility: [facility] Address: [address] [place], [place] [address] Performed By: #### 2 4321-2, 6-4, 55290-3, 2131-12, 2283-11 ####[facility]ATORYCLIA [id number] [address] [place] Iron and Iron binding capaci panelon 10-09-2023 Iron [Mass/Vol] 23 ug/dL Low 41-186 [facility] Comment on above: Order Comment: Speci men Type: BLOOD SPECIMENOrdering Facility: [facility] Address: [address] [place] [address] Performed By: #### 2 4321-2, 6-4, 01309-9, 2131-12, 2283-11 ####[facility]ATORYCLIA [id number] [address] [place] Iron binding capacity [Mass/Vol] 165 ug/dL Low 232-386 [facility] Comment on above: Order Comment: Speci men Type: BLOOD SPECIMENOrdering Facility: [facility] Address: [address] [place] [address] Performed By: #### 2 4321-2, 6-4, 13251-3, 2131-12, 2283-11 ####[facility]ORATORYCLIA [id number] [address] STATES [facility] Iron saturation [Mass fraction] 13.9 % Low 15.0-57.0 [facility] Comment on above: Order Comment: Speci men Type: BLOOD SPECIMENOrdering Facility: [facility] Address: [address] [place] [address] Performed By: #### 2 4321-2, 6-4, 93400-4, 2131-12, 2283-11 ####[facility]ORATORYCLIA [id number] [place] [address] [place] SOCIAL WORKon 10-09-2023 SOCIAL [...] Comment: Speci men Type: BLOOD SPECIMENOrdering Facility: [facility] Address: [address] [place], [place] [address] Performed By: #### 2 4321-2, 2275-4, 63889-8, 2131-12, 2283-11 ####[facility]ATORYCLIA [id number] [place] [address] [place] THERAPY NTon 10-08-2023 THERAPY NT Normal [facility] THERAPY NTon 10-07-2023 THERAPY NT Normal [facility] Basic metabolic 2000 panelon 10-06-2023 Anion gap [Moles/Vol] 10 mmol/L Normal 8-15 [facility] Comment on above: Order Comment: Speci men Type: BLOOD SPECIMENOrdering Facility: [facility] Address: [address] [place] [address] Performed By: #### 2 4321-2 ####[facility] LABCLIA [id number] [place] [address] [place] Calcium [Mass/Vol] 8.9 mg/dL Normal 8.5-10.2 [facility] Comment on above: Order Comment: Speci men Type: BLOOD SPECIMENOrdering Facility: [facility] Address: [address] [place] [address] Performed By: #### 2 4321-2 ####[facility] LABCLIA [id number] [facility] [place] [address] [place] Chloride [Moles/Vol] 104 mmol/L Normal 98-107 [facility] Comment on above: Order Comment: Speci men Type: BLOOD SPECIMENOrdering Facility: [facility] Address: [address] [place] [address] Performed By: #### 2 4321-2 ####[facility] LABCLIA [id number] [place] [address] [place] CO2 [Moles/Vol] 27 mmol/L Normal 22-30 [facility] Comment on above: Order Comment: Speci men Type: BLOOD SPECIMENOrdering Facility: [facility] Address: [address] [place] [address] Performed By: #### 2 4321-2 ####[facility] LABCLIA [id number] [place] [address] [place] Creatinine [Mass/Vol] 2.00 mg/dL High 0.73-1.22 [facility] Comment on above: Order Comment: Speci men Type: BLOOD SPECIMENOrdering Facility: [facility] Address: [address] [place] [address] Performed By: #### 2 4321-2 ####[facility] LABCLIA [id number] [place] [address] [facility] Creatinine and Glomerular filtration rate.predicted panel (S/P/Bld) 37 mL/min/1.73m??? Low >=60 [facility] Comment on above: Order Comment: Speci men Type: BLOOD SPECIMENOrdering Facility: [facility] Address: [address] [place] [address] Result Comment: Breanne mated Glomerular Filtration Rate [...] actual GFR. Performed By: #### 2 4321-2 ####[facility] LABCLIA [id number] [place] [address] [place] Glucose [Mass/Vol] 180 mg/dL High 74-99 [facility] Comment on above: Order Comment: Luz clement Type: BLOOD SPECIMENOrdering Facility: [facility] Address: [address] [place] [address] Result Comment: The [place] Diabetes Association (ADA) provides guidance for cutoff [...] Standards of Medical Care in Diabetes 2016, [place] [employer]. Diabetes Care. 2016.39(Suppl 1). Performed By: #### 2 4321-2 ####[facility] LABCLIA [id number] [place] [address] [place] Potassium [Moles/Vol] 4.5 mmol/L Normal 3.7-5.1 [facility] Comment on above: Order Comment: Luz clement Type: BLOOD SPECIMENOrdering Facility: [facility] Address: [address] [place] [address] Performed By: #### 2 4321-2 ####[facility] LABCLIA [id number] [place] [address] [place] Sodium [Moles/Vol] 141 mmol/L Normal 136-144 [facility] Comment on above: Order Comment: Luz clement Type: BLOOD SPECIMENOrdering Facility: [facility] Address: [address] [place] [address] Performed By: #### 2 4321-2 ####[facility] LABCLIA [id number] [place] [address] [place] Urea nitrogen [Mass/Vol] 32 mg/dL High 9-24 [facility] Comment on above: Order Comment: Speci men Type: BLOOD SPECIMENOrdering Facility: [facility] Address: [address] [place] [address] Performed By: #### 2 4321-2 ####[facility] LABCLIA [id number] [facility] [place] [address] [facility] CBC panel Auto (Bld)on 10-05 Erythrocyte distribution width (RBC) [Ratio] 13.5 % Normal 11.5-15.0 [facility] Comment on above: Order Comment: Speci men Type: BLOOD SPECIMENOrdering Facility: [facility] Address: [address] [place] [address] Performed By: #### 5 8410-2 ####[facility] LABCLIA [id number] [place] [address] [facility] Hematocrit (Bld) [Volume fraction] 31.5 % Low 39.0-51.0 [facility] Comment on above: Order Comment: Speci men Type: BLOOD SPECIMENOrdering Facility: [facility] Address: [address] [place] [address] Performed By: #### 5 8410-2 ####[facility] LABCLIA [id number] [facility] [place] [address] [facility] Hemoglobin (Bld) [Mass/Vol] 9.9 g/dL Low 13.0-17.0 [facility] Comment on above: Order Comment: Speci men Type: BLOOD SPECIMENOrdering Facility: [facility] Address: [address] [place] [address] Performed By: #### 5 8410-2 ####[facility] LABCLIA [id number] [facility] [place] [address] [place] MCH (RBC) [Entitic mass] 27.3 pg Normal 26.0-34.0 [facility] Comment on above: Order Comment: Speci men Type: BLOOD SPECIMENOrdering Facility: [facility] Address: [address] [place] [address] Performed By: #### 5 8410-2 ####[facility] LABCLIA [id number] [place] [address] [place] [facility] MCHC (RBC) [Mass/Vol] 31.4 g/dL Normal 30.5-36.0 [facility] Comment on above: Order Comment: Speci men Type: BLOOD SPECIMENOrdering Facility: [facility] Address: [address] [place] [address] Performed By: #### 5 8410-2 ####[facility] LABCLIA [id number] [place] [address] [place] MCV (RBC) [Entitic vol] 86.8 fL Normal 80.0-100.0 [facility] Comment on above: Order Comment: Speci men Type: BLOOD SPECIMENOrdering Facility: [facility] Address: [address] [place] [address] Performed By: #### 5 8410-2 ####[facility] LABCLIA [id number] [place] [address] [place] Platelet mean volume (Bld) [Entitic vol] 8.4 fL Low 9.0-12.7 [facility] Comment on above: Order Comment: Speci men Type: BLOOD SPECIMENOrdering Facility: [facility] Address: [address] [place] [address] Performed By: #### 5 8410-2 ####[facility] LABCLIA [id number] [place] [address] [place] Platelets (Bld) [#/Vol] 345 10*3/uL Normal 150-400 [facility] Comment on above: Order Comment: Speci men Type: BLOOD SPECIMENOrdering Facility: [facility] Address: [address] [place] [address] Performed By: #### 5 8410-2 ####[facility] LABCLIA [id number] [place] [address] [place] RBC (Bld) [#/Vol] 3.63 10*6/uL Low 4.20-6.00 [facility] Comment on above: Order Comment: Luz vaughan Type: BLOOD SPECIMENOrdering Facility: [facility] Address: [address] [place] [address] Performed By: #### 5 8410-2 ####[facility] LABCLIA [id number] [place] [id number] [facility] [place] WBC (Bld) [#/Vol] 9.66 10*3/uL Normal 3.70-11.00 [facility] Comment on above: Order Comment: Luz vaughan Type: BLOOD SPECIMENOrdering Facility: [facility] Address: [address] [place] [address] Performed By: #### 5 8410-2 ####[facility] LABIA [id number] [place] [id number] [facility] HbA1c (Bld)on 10-06-2023 Average glucose Estimated from glycated hemoglobin (Bld) [Mass/Vol] 126 mg/dL Normal [facility] Comment on above: Order Comment: Luz vaughan Type: BLOOD SPECIMENOrdering Facility: [facility] Address: [address] [place] [address] Result Comment: eAG: (Estimated average glucose) is a calculated value from HgbA1c and is veterans service representative of the average blood glucose level in the last 2-3 month period. Performed By: #### 5 5454-3 ####[facility] LABCLIA [id number] [facility] [address] [place] HbA1c (Bld) [Mass fraction] 6.0 % High 4.3-5.6 [facility] Comment on above: Order Comment: Luz vaughan Type: BLOOD SPECIMENOrdering Facility: [facility] Address: [address] [place] [address] Result Comment: [place] Diabetes Association guidelines indicate that patients with HgbA1c in the range 5.7-6.4% are at increased risk for development of diabetes, and intervention by lifestyle modification may be beneficial. HgbA1c greater or equal to 6.5% is considered diagnostic of diabetes. Performed By: #### 5 5454-3 ####[facility] LABCLIA [id number] [place] [address] [address] [place] NUTRITIONon 10-06-2023 NUTRITION [...] 2023 BILIRUBIN UA (POCT) Negative Negative Kt [facility] CLARITY UA (POCT) Clear [facility] COLOR UA (POCT) Yellow [facility] GLUCOSE UA (POCT) Negative Negative mg/dL [facility] Hemoglobin Ql (U) Trace-intact Abnormal Negative Kt [facility] KETONE UA (POCT) Negative Negative mg/dL [facility] LEUKOCYTES UA (POCT) Negative Negative [facility] NITRITE UA (POCT) Negative Negative [facility] PH UA (POCT) 5.5 4.5 - 8.0 [facility] Protein Ql (U) >=300 Abnormal Negative mg/dL [facility] SPECIFIC GRAVITY UA (POCT) >=1.030 1.005 - 1.030 [facility] UROBILINOGEN UA (POCT) 0.2 E.U./dL Normal E.U./dL [facility] Basic metabolic 2000 panelon 06-13-2023 Anion gap [Moles/Vol] 10 mmol/L Normal 9-18 [facility] Comment on above: Order Comment: Speci men Type: BLOOD SPECIMENOrdering Facility: [facility] Address: [address] [place] [address] Performed By: #### 2 4321-2 ####[facility] LABCLIA [id number] [place] [address] [place] Calcium [Mass/Vol] 8.6 mg/dL Normal 8.5-10.2 [facility] Comment on above: Order Comment: Speci men Type: BLOOD SPECIMENOrdering Facility: [facility] Address: [address] [place] [address] Performed By: #### 2 4321-2 ####[facility] LABCLIA [id number] [place] [address] [place] Chloride [Moles/Vol] 105 mmol/L Normal 97-105 [facility] Comment on above: Order Comment: Speci men Type: BLOOD SPECIMENOrdering Facility: [facility] Address: [address] [place] [address] Performed By: #### 2 4321-2 ####[facility] LABCLIA [id number] [place] [address] [place] CO2 [Moles/Vol] 26 mmol/L Normal 22-30 [facility] Comment on above: Order Comment: Speci men Type: BLOOD SPECIMENOrdering Facility: [facility] Address: [address] [place] [address] Performed By: #### 2 4321-2 ####[facility] LABCLIA [id number] [place] [address] [place] Creatinine [Mass/Vol] 2.17 mg/dL High 0.73-1.22 [facility] Comment on above: Order Comment: Speci men Type: BLOOD SPECIMENOrdering Facility: [facility] Address: [address] [place] [address] Performed By: #### 2 4321-2 ####[facility] LABCLIA [id number] [place] [address] [facility] [place] Creatinine and Glomerular filtration rate.predicted panel (S/P/Bld) 33 mL/min/1.73m??? Low >=60 [facility] Comment on above: Order Comment: Speci men Type: BLOOD SPECIMENOrdering Facility: [facility] Address: [address] [place], [place] [address] Result Comment: Breanne mated Glomerular Filtration Rate [...] actual GFR. Performed By: #### 2 4321-2 ####[facility] LABCLIA [id number] [place] [address] [place] Glucose [Mass/Vol] 158 mg/dL High 74-99 [facility] Comment on above: Order Comment: Luz vaughan Type: BLOOD SPECIMENOrdering Facility: [facility] Address: [facility] [place] [address] Result Comment: The [place] Diabetes Association (ADA) provides guidance for cutoff [...] Standards of Medical Care in Diabetes 2016, [place] Diabetes Association. Diabetes Care. 2016.39(Suppl 1). Performed By: #### 2 4321-2 ####[facility] LABCLIA [id number] [place] [address] [place] Potassium [Moles/Vol] 4.7 mmol/L Normal 3.7-5.1 [facility] Comment on above: Order Comment: Luz vaughan Type: BLOOD SPECIMENOrdering Facility: [facility] Address: [address] [place] [id number] Performed By: #### 2 4321-2 ####[facility] LABCLIA [id number] [place] [address] [place] Sodium [Moles/Vol] 141 mmol/L Normal 136-144 [facility] Comment on above: Order Comment: Speci men Type: BLOOD SPECIMENOrdering Facility: [facility] Address: [address] [place], [place] [address] Performed By: #### 2 4321-2 ####[facility] LABCLIA [id number] [facility] [place] [address] [place] Urea nitrogen [Mass/Vol] 46 mg/dL High 9-24 [facility] Comment on above: Order Comment: Speci men Type: BLOOD SPECIMENOrdering Facility: [facility] Address: [address] [place] [address] Performed By: #### 2 4321-2 ####[facility] LABCLIA [id number] [facility] [place] [address] [place] CNDSon 06-13-2023 CNDS Normal [facility] Albumin SerPl-mCncon 024 Albumin [Mass/Vol] 3.0 g/dL Low 3.9-4.9 [facility] Comment on above: Order Comment: Speci men Type: BLOOD SPECIMENOrdering Facility: [facility] Address: [address] [place] [address] Performed By: #### 1 751-7, 50664-6, 2777-1 ####[facility] LABCLIA [id number] [facility] [place] [address] [place] Basic metabolic 2000 panelon 06-12-2023 Anion gap [Moles/Vol] 9 mmol/L Normal 9-18 [facility] Comment on above: Order Comment: Speci men Type: BLOOD SPECIMENOrdering Facility: [facility] Address: [address] [place] [address] Performed By: #### 1 751-7, 40409-4, 2777-1 ####[facility] LABCLIA [id number] [facility] [place] [address] [place] Calcium [Mass/Vol] 8.9 mg/dL Normal 8.5-10.2 [facility] Comment on above: Order Comment: Speci men Type: BLOOD SPECIMENOrdering Facility: [facility] Address: [address] [place] [address] Performed By: #### 1 751-7, 70074-1, 2776- ####[facility] LABCLIA [id number] [facility] [place] [place] [address] [place] Chloride [Moles/Vol] 107 mmol/L High 97-105 [facility] Comment on above: Order Comment: Speci men Type: BLOOD SPECIMENOrdering Facility: [facility] Address: [address] [place] [address] Performed By: #### 1 751-7, 34663-2, 2776-04 ####[facility] LABCLIA [id number] [facility] [place] [address] [place] CO2 [Moles/Vol] 28 mmol/L Normal 22-30 [facility] Comment on above: Order Comment: Speci men Type: BLOOD SPECIMENOrdering Facility: [facility] Address: [address] [place] [address] Performed By: #### 1 751-7, 87269-3, 2776-04 ####[facility] LABCLIA [id number] [facility] [place] [address] [place] Creatinine [Mass/Vol] 2.34 mg/dL High 0.73-1.22 [facility] Comment on above: Order Comment: Speci men Type: BLOOD SPECIMENOrdering Facility: [facility] Address: [address] [place] [address] Performed By: #### 1 751-7, 43599-6, 2776- ####[facility] LABCLIA [id number] [facility] [place] [address] [facility] Creatinine and Glomerular filtration rate.predicted panel (S/P/Bld) 30 mL/min/1.73m??? Low >=60 [facility] Comment on above: Order Comment: Speci men Type: BLOOD SPECIMENOrdering Facility: [facility] Address: [address] [place] [address] Result Comment: Breanne mated Glomerular Filtration Rate [...] actual GFR. Performed By: #### 1 751-7, 43930-3, 2776- ####[facility] LABIA [id number] [place] [address] [place] Glucose [Mass/Vol] 148 mg/dL High 74-99 [facility] Comment on above: Order Comment: Luz vaughan Type: BLOOD SPECIMENOrdering Facility: [facility] Address: [address] [place] [address] Result Comment: The [place] Diabetes Association (ADA) provides guidance for cutoff [...] Standards of Medical Care in Diabetes 2016, [place] [employer]. Diabetes Care. 2016.39(Suppl 1). Performed By: #### 1 751-7, 94138-8, 2776-04 ####[facility] LABIA [id number] [place] [address] [place] Potassium [Moles/Vol] 5.6 mmol/L High 3.7-5.1 [facility] Comment on above: Order Comment: Luz vaughan Type: BLOOD SPECIMENOrdering Facility: [facility] Address: [address] [place] [address] Performed By: #### 1 751-7, 48280-3, 2777- ####[facility] LABCLIA [id number] [facility] [place] [address] [place] Sodium [Moles/Vol] 144 mmol/L Normal 136-144 [facility] Comment on above: Order Comment: Speci men Type: BLOOD SPECIMENOrdering Facility: [facility] Address: [address] [place] [address] Performed By: #### 1 751-7, 13246-1, 2777- ####[facility] LABCLIA [id number] [facility] [place] [address] [place] Urea nitrogen [Mass/Vol] 47 mg/dL High 9-24 [facility] Comment on above: Order Comment: Speci men Type: BLOOD SPECIMENOrdering Facility: [facility] Address: [address] [place] [address] Performed By: #### 1 751-7, 24897-1, 27710-01 ####[facility] [place] LABCLIA [id number] [facility] [place] [address] [place] CASE MANAGEMon 06-12-2023 CASE MANAGEM Normal [facility] HISTORY PHYSICALon HISTORY PHYSICAL Normal [facility] POTASSIUM BLDon 06-12-2023 Potassium [Moles/Vol] 4.5 mmol/L Normal 3.7-5.1 [facility] Comment on above: Order Comment: Speci men Type: BLOOD SPECIMENOrdering Facility: [facility] Address: [address] [place] [address] Performed By: #### K 1 ####[facility] LABCLIA [id number] [facility] [place] [address] [place] Potassium [Moles/Vol] 5.8 mmol/L High 3.7-5.1 [facility] Comment on above: Order Comment: Speci men Type: BLOOD SPECIMENOrdering Facility: [facility] Address: [address] [place] [address] Performed By: #### K 1 ####[facility] [place] LABCLIA [id number] [place] [address] [facility] [place] Phosphate SerPl-mCncon 06-11 Phosphate [Mass/Vol] 4.6 mg/dL Normal 2.7-4.8 [facility] Comment on above: Order Comment: Speci men Type: BLOOD SPECIMENOrdering Facility: [facility] Address: [address] [place] [address] Performed By: #### 1 751-7, 95711-0, 2777-1 ####[facility] [place] LABCLIA [id number] [place] [address] [facility] THERAPY NTon 06-12-2023 THERAPY NT Normal [facility] THERAPY NT Normal [facility] Basic metabolic 2000 panelon 06-11-2023 Anion gap [Moles/Vol] 8 mmol/L Low 9-18 [facility] Comment on above: Order Comment: Speci men Type: BLOOD SPECIMENOrdering Facility: [facility] Address: [address] [place] [address] Performed By: #### 2 4321-2 ####[facility] LABCLIA [id number] [place] [address] [place] Calcium [Mass/Vol] 8.7 mg/dL Normal 8.5-10.2 [facility] Comment on above: Order Comment: Speci men Type: BLOOD SPECIMENOrdering Facility: [facility] Address: [address] [place] [address] Performed By: #### 2 4321-2 ####[facility] LABCLIA [id number] [place] [address] [place] Chloride [Moles/Vol] 106 mmol/L High 97-105 [facility] Comment on above: Order Comment: Speci men Type: BLOOD SPECIMENOrdering Facility: [facility] Address: [address] [place] [address] Performed By: #### 2 4321-2 ####[facility] [place] LABCLIA [id number] [place] [address] [place] CO2 [Moles/Vol] 28 mmol/L Normal 22-30 [facility] Comment on above: Order Comment: Speci men Type: BLOOD SPECIMENOrdering Facility: [facility] Address: [address] [place] [address] Performed By: #### 2 4321-2 ####[facility] LABCLIA [id number] [place] [address] [place] Creatinine [Mass/Vol] 2.24 mg/dL High 0.73-1.22 [facility] Comment on above: Order Comment: Speci men Type: BLOOD SPECIMENOrdering Facility: [facility] Address: [address] [place] [address] Performed By: #### 2 4321-2 ####[facility] LABCLIA [id number] [place] [address] [facility] Creatinine and Glomerular filtration rate.predicted panel (S/P/Bld) 32 mL/min/1.73m??? Low >=60 [facility] Comment on above: Order Comment: Speci men Type: BLOOD SPECIMENOrdering Facility: [facility] Address: [address] [place] [address] Result Comment: Breanne mated Glomerular Filtration Rate [...] actual GFR. Performed By: #### 2 4321-2 ####[facility] LABCLIA [id number] [place] [address] [place] Glucose [Mass/Vol] 126 mg/dL High 74-99 [facility] Comment on above: Order Comment: Speci men Type: BLOOD SPECIMENOrdering Facility: [facility] Address: [address] [place] [address] Result Comment: The [place] Diabetes Association (ADA) provides guidance for cutoff [...] Standards of Medical Care in Diabetes 2016, [place] [employer]. Diabetes Care. 2016.39(Suppl 1). Performed By: #### 2 4321-2 ####[facility] LABCLIA [id number] [place] [address] [place] Potassium [Moles/Vol] 4.9 mmol/L Normal 3.7-5.1 [facility] Comment on above: Order Comment: Speci men Type: BLOOD SPECIMENOrdering Facility: [facility] Address: [address] [place] [address] Performed By: #### 2 4321-2 ####[facility] LABCLIA [id number] [place] [id number] [place] Sodium [Moles/Vol] 142 mmol/L Normal 136-144 [facility] Comment on above: Order Comment: Brooksi men Type: BLOOD SPECIMENOrdering Facility: [facility] Address: [address] [place] [address] Performed By: #### 2 4321-2 ####[facility] LABCLIA [id number] [place] [address] [place] Urea nitrogen [Mass/Vol] 45 mg/dL High 9-24 [facility] Comment on above: Order Comment: Brooksi men Type: BLOOD SPECIMENOrdering Facility: [facility] Address: [address] [place] [address] Performed By: #### 2 4321-2 ####[facility] [place] LABCLIA [id number] [place] [address] [place] CNDSon 06-11-2023 CNDS Normal [facility] NURSING PROGon 06-10-2023 NURSING PROG Normal [facility] NURSING PROG Normal [facility] Basic metabolic 2000 panelon 06-09-2023 Anion gap [Moles/Vol] 9 mmol/L Normal 9-18 [facility] Comment on above: Order Comment: Speci men Type: BLOOD SPECIMENOrdering Facility: [facility] Address: [address] [place] [address] Performed By: #### 2 4321-2 ####[facility] [place] LABCLIA [id number] [facility] [place] [address] [place] Calcium [Mass/Vol] 8.7 mg/dL Normal 8.5-10.2 [facility] Comment on above: Order Comment: Speci men Type: BLOOD SPECIMENOrdering Facility: [facility] Address: [address] [place] [address] Performed By: #### 2 4321-2 ####[facility] [place] LABCLIA [id number] [facility] [place] [address] [place] Chloride [Moles/Vol] 105 mmol/L Normal 97-105 [facility] Comment on above: Order Comment: Speci men Type: BLOOD SPECIMENOrdering Facility: [facility] Address: [address] [place] [address] Performed By: #### 2 4321-2 ####[facility] [place] LABCLIA [id number] [place] [facility] [place] [address] [place] CO2 [Moles/Vol] 27 mmol/L Normal 22-30 [facility] Comment on above: Order Comment: Speci men Type: BLOOD SPECIMENOrdering Facility: [facility] Address: [address] [place] [address] Performed By: #### 2 4321-2 ####[facility] [place] LABCLIA [id number] [facility] [place] [address] [place] Creatinine [Mass/Vol] 2.25 mg/dL High 0.73-1.22 [facility] Comment on above: Order Comment: Luz clement Type: BLOOD SPECIMENOrdering Facility: [facility] Address: [address] [place] [address] Performed By: #### 2 4321-2 ####[facility] LABCLIA [id number] [place] [address] [place] Creatinine and Glomerular filtration rate.predicted panel (S/P/Bld) 32 mL/min/1.73m??? Low >=60 [facility] Comment on above: Order Comment: Luz vaughan Type: BLOOD SPECIMENOrdering Facility: [facility] Address: [address] [place] [address] Result Comment: Breanne mated Glomerular Filtration Rate [...] Performed By: #### 2 4321-2 ####[facility] LABCLIA [id number] [place] [address] [place] Glucose [Mass/Vol] 151 mg/dL High 74-99 [facility] Comment on above: Order Comment: Luz clement Type: BLOOD SPECIMENOrdering Facility: [facility] Address: [address] [place] [address] Result Comment: The [place] Diabetes Association (ADA) provides guidance for cutoff [...] Standards of Medical Care in Diabetes 2016, [place] [employer]. Diabetes Care. 2016.39(Suppl 1). Performed By: #### 2 4321-2 ####[facility] LABCLIA [id number] [place] [address] [place] Potassium [Moles/Vol] 5.0 mmol/L Normal 3.7-5.1 [facility] Comment on above: Order Comment: Speci men Type: BLOOD SPECIMENOrdering Facility: [facility] Address: [address] [place] [address] Performed By: #### 2 4321-2 ####[facility] LABCLIA [id number] [place] [address] [place] Sodium [Moles/Vol] 141 mmol/L Normal 136-144 [facility] Comment on above: Order Comment: Speci men Type: BLOOD SPECIMENOrdering Facility: [facility] Address: [address] [place] [address] Performed By: #### 2 4321-2 ####[facility] LABCLIA [id number] [place] [address] [place] Urea nitrogen [Mass/Vol] 48 mg/dL High 9-24 [facility] Comment on above: Order Comment: Speci men Type: BLOOD SPECIMENOrdering Facility: [facility] Address: [address] [place] [address] Performed By: #### 2 4321-2 ####[facility] LABCLIA [id number] [place] [address] [place] NURSING PROGon 06-09-2023 [...] Comment: Speci men Type: BLOOD SPECIMENOrdering Facility: [facility] Address: [address] [place] [address] Performed By: #### 2 4321-2 ####[facility] LABCLIA [id number] [facility] [place] [address] [place] Calcium [Mass/Vol] 9.2 mg/dL Normal 8.5-10.2 [facility] Comment on above: Order Comment: Speci men Type: BLOOD SPECIMENOrdering Facility: [facility] Address: [address] [place] [address] Performed By: #### 2 4321-2 ####[facility] LABCLIA [id number] [place] [address] [place] Chloride [Moles/Vol] 105 mmol/L Normal 97-105 [facility] Comment on above: Order Comment: Speci men Type: BLOOD SPECIMENOrdering Facility: [facility] Address: [address] [place] [address] Performed By: #### 2 4321-2 ####[facility] LABCLIA [id number] [facility] [place] [address] [place] CO2 [Moles/Vol] 27 mmol/L Normal 22-30 [facility] Comment on above: Order Comment: Speci men Type: BLOOD SPECIMENOrdering Facility: [facility] Address: [address] [place] [address] Performed By: #### 2 4321-2 ####[facility] LABCLIA [id number] [facility] [place] [address] [place] Creatinine [Mass/Vol] 2.23 mg/dL High 0.73-1.22 [facility] Comment on above: Order Comment: Speci men Type: BLOOD SPECIMENOrdering Facility: [facility] Address: [address] [place] [address] Performed By: #### 2 4321-2 ####[facility] LABCLIA [id number] [facility] [place] [address] [place] Creatinine and Glomerular filtration rate.predicted panel (S/P/Bld) 32 mL/min/1.73m??? Low >=60 [facility] Comment on above: Order Comment: Luz vaughan Type: BLOOD SPECIMENOrdering Facility: [facility] Address: [address] [place] [address] Result Comment: Breanne mated Glomerular Filtration Rate [...] Performed By: #### 2 4321-2 ####[facility] LABCLAssurity Group [id number] [place] [id number] [place] Glucose [Mass/Vol] 131 mg/dL High 74-99 [facility] Comment on above: Order Comment: Luz vaughan Type: BLOOD SPECIMENOrdering Facility: [facility] Address: [address] [place] [address] Result Comment: The [place] Diabetes Association (ADA) provides guidance for cutoff [...] Standards of Medical Care in Diabetes 2016, [place] [employer]. Diabetes Care. 2016.39(Suppl 1). Performed By: #### 2 4321-2 ####[facility] LABCLIA [id number] [place] [address] [place] Potassium [Moles/Vol] 5.8 mmol/L High 3.7-5.1 [facility] Comment on above: Order Comment: Luz vaughan Type: BLOOD SPECIMENOrdering Facility: [facility] Address: [address] [place] [id number] Performed By: #### 2 4321-2 ####[facility] LABCLIA [id number] [place] [address] [place] Sodium [Moles/Vol] 143 mmol/L Normal 136-144 [facility] Comment on above: Order Comment: Speci men Type: BLOOD SPECIMENOrdering Facility: [facility] Address: [address] [place] [address] Performed By: #### 2 4321-2 ####[facility] LABCLIA [id number] [place] [address] [place] Urea nitrogen [Mass/Vol] 47 mg/dL High 9-24 [facility] Comment on above: Order Comment: Speci men Type: BLOOD SPECIMENOrdering Facility: [facility] Address: [address] [place] [address] Performed By: #### 2 4321-2 ####[facility] LABCLIA [id number] [place] [address] [place] Anion gap [Moles/Vol] 10 mmol/L Normal 9-18 [facility] Comment on above: Order Comment: Speci men Type: BLOOD SPECIMENOrdering Facility: [facility] Address: [address] [place] [address] Performed By: #### 2 4321-2 ####[facility] LABCLIA [id number] [place] [address] [place] Calcium [Mass/Vol] 9.1 mg/dL Normal 8.5-10.2 [facility] Comment on above: Order Comment: Speci men Type: BLOOD SPECIMENOrdering Facility: [facility] Address: [address] [place] [id number] Performed By: #### 2 4321-2 ####[facility] LABCLIA [id number] [place] [address] [place] Chloride [Moles/Vol] 104 mmol/L Normal 97-105 [facility] Comment on above: Order Comment: Speci men Type: BLOOD SPECIMENOrdering Facility: [facility] Address: [address] [place] [address] Performed By: #### 2 4321-2 ####[facility] LABCLIA [id number] [place] [address] [place] CO2 [Moles/Vol] 27 mmol/L Normal 22-30 [facility] Comment on above: Order Comment: Speci men Type: BLOOD SPECIMENOrdering Facility: [facility] Address: [address] [place] [address] Performed By: #### 2 4321-2 ####[facility] LABCLIA [id number] [place] [address] [facility] Creatinine [Mass/Vol] 2.26 mg/dL High 0.73-1.22 [facility] Comment on above: Order Comment: Speci men Type: BLOOD SPECIMENOrdering Facility: [facility] Address: [address] [place] [address] Performed By: #### 2 4321-2 ####[facility] LABCLIA [id number] [place] [id number] [facility] Creatinine and Glomerular filtration rate.predicted panel (S/P/Bld) 32 mL/min/1.73m??? Low >=60 [facility] Comment on above: Order Comment: Speci men Type: BLOOD SPECIMENOrdering Facility: [facility] Address: [address] [place] [address] Result Comment: Breanne mated Glomerular Filtration Rate [...] actual GFR. Performed By: #### 2 4321-2 ####[facility] LABCLIA [id number] [place] [address] [place] Glucose [Mass/Vol] 166 mg/dL High 74-99 [facility] Comment on above: Order Comment: Speci men Type: BLOOD SPECIMENOrdering Facility: [facility] Address: [address] [place], [place] [address] Result Comment: The [place] Diabetes Association (ADA) provides guidance for cutoff [...] Standards of Medical Care in Diabetes 2016, [place] [employer]. Diabetes Care. 2016.39(Suppl 1). Performed By: #### 2 4321-2 ####[facility] LABCLIA [id number] [place] [address] [place] Potassium [Moles/Vol] 5.7 mmol/L High 3.7-5.1 [facility] Comment on above: Order Comment: Brooksi men Type: BLOOD SPECIMENOrdering Facility: [facility] Address: [address] [place], [place] [address] Performed By: #### 2 4321-2 ####[facility] LABCLIA [id number] [place] [address] [place] Sodium [Moles/Vol] 141 mmol/L Normal 136-144 [facility] Comment on above: Order Comment: Speci men Type: BLOOD SPECIMENOrdering Facility: [facility] Address: [address] [place], [place] [address] Performed By: #### 2 4321-2 ####[facility] [place] LABCLIA [id number] [place] [address] [place] Urea nitrogen [Mass/Vol] 50 mg/dL High 9-24 [facility] Comment on above: Order Comment: Speci men Type: BLOOD SPECIMENOrdering Facility: [facility] Address: [address] [place] [address] Performed By: #### 2 4321-2 ####[facility] LABCLIA [id number] [place] [address] [place] POTASSIUM BLDon 06-08-2023 Potassium [Moles/Vol] 5.0 mmol/L Normal 3.7-5.1 [facility] Comment on above: Order Comment: Speci men Type: BLOOD SPECIMENOrdering Facility: [facility] Address: [address] [place] [address] Performed By: #### K 1 ####[facility] [place] LABCLIA [id number] [place] [address] [place] SOCIAL WORKon 06-08-2023 SOCIAL WORK Normal [facility] THERAPY NTon 06-08-2023 THERAPY NT Normal [facility] THERAPY NT Normal [facility] Basic metabolic 2000 panelon 06-07-2023 Anion gap [Moles/Vol] 10 mmol/L Normal 9-18 [facility] Comment on above: Order Comment: Speci men Type: BLOOD SPECIMENOrdering Facility: [facility] Address: [address] [place] [address] Performed By: #### 2 4321-2 ####[facility] LABCLIA [id number] [place] [address] [place] Calcium [Mass/Vol] 9.3 mg/dL Normal 8.5-10.2 [facility] Comment on above: Order Comment: Speci men Type: BLOOD SPECIMENOrdering Facility: [facility] Address: [address] [place] [address] Performed By: #### 2 4321-2 ####[facility] LABCLIA [id number] [place] [address] [place] Chloride [Moles/Vol] 108 mmol/L High 97-105 [facility] Comment on above: Order Comment: Speci men Type: BLOOD SPECIMENOrdering Facility: [facility] Address: [address] [place] [address] Performed By: #### 2 4321-2 ####[facility] LABCLIA [id number] [place] [address] [place] CO2 [Moles/Vol] 28 mmol/L Normal 22-30 [facility] Comment on above: Order Comment: Speci men Type: BLOOD SPECIMENOrdering Facility: [facility] Address: [address] [place] [address] Performed By: #### 2 4321-2 ####[facility] LABCLIA [id number] [place] [address] [place] Creatinine [Mass/Vol] 2.43 mg/dL High 0.73-1.22 [facility] Comment on above: Order Comment: Speci men Type: BLOOD SPECIMENOrdering Facility: [facility] Address: [address] [place] [address] Performed By: #### 2 4321-2 ####[facility] LABCL[facility] [id number] [place] [address] [place] Creatinine and Glomerular filtration rate.predicted panel (S/P/Bld) 29 mL/min/1.73m??? Low >=60 [facility] Comment on above: Order Comment: Speci men Type: BLOOD SPECIMENOrdering Facility: [facility] Address: [address] [place] [address] Result Comment: Breanne mated Glomerular Filtration Rate [...] actual GFR. Performed By: #### 2 4321-2 ####[facility] LABCLIA [id number] [place] [address] [place] Glucose [Mass/Vol] 139 mg/dL High 74-99 [facility] Comment on above: Order Comment: Speci men Type: BLOOD SPECIMENOrdering Facility: [facility] Address: [address] [place] [phone] Result Comment: The [place] Diabetes Association (ADA) provides guidance for cutoff [...] Standards of Medical Care in Diabetes 2016, [place] [employer]. Diabetes Care. 2016.39(Suppl 1). Performed By: #### 2 4321-2 ####[facility] LABCLIA [id number] [place] [address] [place] Potassium [Moles/Vol] 5.8 mmol/L High 3.7-5.1 [facility] Comment on above: Order Comment: Luz men Type: BLOOD SPECIMENOrdering Facility: [facility] Address: [address] [place] [id number] Performed By: #### 2 4321-2 ####[facility] LABCLIA [id number] [place] [address] [place] Sodium [Moles/Vol] 146 mmol/L High 136-144 [facility] Comment on above: Order Comment: Speci men Type: BLOOD SPECIMENOrdering Facility: [facility] Address: [address] [id number] Performed By: #### 2 4321-2 ####[facility] [place] LABCLIA [id number] [place] [address] [place] Urea nitrogen [Mass/Vol] 53 mg/dL High 9-24 [facility] Comment on above: Order Comment: Brooksi men Type: BLOOD SPECIMENOrdering Facility: [facility] Address: [address] [place] [id number] Performed By: #### 2 4321-2 ####[facility] [place] LABCLIA [id number] [facility] [place] [address] [facility] Comprehensive metabolic 2000 panelon 06-07-2023 Albumin [Mass/Vol] 3.1 g/dL Low 3.9-4.9 [facility] Comment on above: Order Comment: Speci men Type: BLOOD SPECIMENOrdering Facility: [facility] Address: [address] [place] [address] Performed By: #### 2 4323-8 ####[facility] [place] LABCLIA [id number] [facility] [place] [address] [facility] ALP [Catalytic activity/Vol] 112 U/L Normal 38-113 [facility] Comment on above: Order Comment: Speci men Type: BLOOD SPECIMENOrdering Facility: [facility] Address: [address] [place] [address] Performed By: #### 2 4323-8 ####[facility] [place] LABCLIA [id number] [facility] [place] [address] [facility] ALT With P-5'-P [Catalytic activity/Vol] 25 U/L Normal 10-54 [facility] Comment on above: Order Comment: Speci men Type: BLOOD SPECIMENOrdering Facility: [facility] Address: [address] [place] [address] Performed By: #### 2 4323-8 ####[facility] LABCLIA [id number] [facility] [place] [address] [facility] Anion gap [Moles/Vol] 12 mmol/L Normal 9-18 [facility] Comment on above: Order Comment: Speci men Type: BLOOD SPECIMENOrdering Facility: [facility] Address: [address] [place] [address] Performed By: #### 2 4323-8 ####[facility] LABCLIA [id number] [facility] [place] [address] [facility] [place] AST With P-5'-P [Catalytic activity/Vol] 20 U/L Normal 14-40 [facility] Comment on above: Order Comment: Speci men Type: BLOOD SPECIMENOrdering Facility: [facility] Address: [address] [place] [address] Performed By: #### 2 4323-8 ####[facility] LABCLIA [id number] [facility] [place] [address] [place] Bilirubin [Mass/Vol] mg/dL Low 0.2-1.3 [facility] Comment on above: Order Comment: Speci men Type: BLOOD SPECIMENOrdering Facility: [facility] Address: [address] [place] [address] Performed By: #### 2 4323-8 ####[facility] LABCLIA [id number] [facility] [place] [address] [place] Calcium [Mass/Vol] 9.0 mg/dL Normal 8.5-10.2 [facility] Comment on above: Order Comment: Speci men Type: BLOOD SPECIMENOrdering Facility: [facility] Address: [address] [place] [address] Performed By: #### 2 4323-8 ####[facility] LABCLIA [id number] [facility] [place] [address] [place] Chloride [Moles/Vol] 105 mmol/L Normal 97-105 [facility] Comment on above: Order Comment: Speci men Type: BLOOD SPECIMENOrdering Facility: [facility] Address: [address] [place] [address] Performed By: #### 2 4323-8 ####[facility] LABCLIA [id number] [facility] [place] [address] [place] CO2 [Moles/Vol] 24 mmol/L Normal 22-30 [facility] Comment on above: Order Comment: Speci men Type: BLOOD SPECIMENOrdering Facility: [facility] Address: [address] [place] [address] Performed By: #### 2 4323-8 ####[facility] LABCLIA [id number] [place] [address] [place] Creatinine [Mass/Vol] 2.22 mg/dL High 0.73-1.22 [facility] Comment on above: Order Comment: Luz vaughan Type: BLOOD SPECIMENOrdering Facility: [facility] Address: [address] [place] [address] Performed By: #### 2 4323-8 ####[facility] LABCLIA [id number] [place] [id number] [facility] Creatinine and Glomerular filtration rate.predicted panel (S/P/Bld) 32 mL/min/1.73m??? Low >=60 [facility] Comment on above: Order Comment: Luz vaughan Type: BLOOD SPECIMENOrdering Facility: [facility] Address: [address] [place] [address] Result Comment: Breanne mated Glomerular Filtration Rate [...] GFR. Performed By: #### 2 4323-8 ####[facility] LABCLIA [id number] [place] [address] [place] Glucose [Mass/Vol] 103 mg/dL High 74-99 [facility] Comment on above: Order Comment: Luz vaughan Type: BLOOD SPECIMENOrdering Facility: [facility] Address: [address] [place] [address] Result Comment: The [place] Diabetes Association (ADA) provides guidance for cutoff [...] Standards of Medical Care in Diabetes 2016, [place] [employer]. Diabetes Care. 2016.39(Suppl 1). Performed By: #### 2 4323-8 ####[facility] LABCLIA [id number] [facility] [place] [address] [place] Potassium [Moles/Vol] 4.9 mmol/L Normal 3.7-5.1 [facility] Comment on above: Order Comment: Speci men Type: BLOOD SPECIMENOrdering Facility: [facility] Address: [address] [place] [address] Performed By: #### 2 4323-8 ####[facility] LABCLIA [id number] [place] [address] [place] Protein [Mass/Vol] 6.1 g/dL Low 6.3-8.0 [facility] Comment on above: Order Comment: Speci men Type: BLOOD SPECIMENOrdering Facility: [facility] Address: [address] [place] [address] Performed By: #### 2 4323-8 ####[facility] LABCLIA [id number] [place] [address] [place] Sodium [Moles/Vol] 141 mmol/L Normal 136-144 [facility] Comment on above: Order Comment: Speci men Type: BLOOD SPECIMENOrdering Facility: [facility] Address: [address] [place] [address] Performed By: #### 2 4323-8 ####[facility] LABCLIA [id number] [facility] [place] [address] [place] Urea nitrogen [Mass/Vol] 49 mg/dL High 9-24 [facility] Comment on above: Order Comment: Speci men Type: BLOOD SPECIMENOrdering Facility: [facility] Address: [address] [place] [address] Performed By: #### 2 4323-8 ####[facility] LABCLIA [id number] [place] [address] [place] SOCIAL WORKon 06-07-2023 [...] Comment: Speci men Type: BLOOD SPECIMENOrdering Facility: [facility] Address: [address] [place] [address] Performed By: #### 2 4321-2 ####[facility] LABCLIA [id number] [place] [address] [place] Calcium [Mass/Vol] 8.7 mg/dL Normal 8.5-10.2 [facility] Comment on above: Order Comment: Speci men Type: BLOOD SPECIMENOrdering Facility: [facility] Address: [address] [place] [address] Performed By: #### 2 4321-2 ####[facility] LABCLIA [id number] [place] [address] [place] Chloride [Moles/Vol] 107 mmol/L High 97-105 [facility] Comment on above: Order Comment: Speci men Type: BLOOD SPECIMENOrdering Facility: [facility] Address: [address] [place] [address] Performed By: #### 2 4321-2 ####[facility] LABCLIA [id number] [place] [address] [place] CO2 [Moles/Vol] 25 mmol/L Normal 22-30 [facility] Comment on above: Order Comment: Speci men Type: BLOOD SPECIMENOrdering Facility: [facility] Address: [address] [place] [address] Performed By: #### 2 4321-2 ####[facility] LABCLIA [id number] [place] [address] [place] Creatinine [Mass/Vol] 2.20 mg/dL High 0.73-1.22 [facility] Comment on above: Order Comment: Luz vaughan Type: BLOOD SPECIMENOrdering Facility: [facility] Address: [address] [place] [address] Performed By: #### 2 4321-2 ####[facility] LABCLIA [id number] [place] [id number] [facility] Creatinine and Glomerular filtration rate.predicted panel (S/P/Bld) 33 mL/min/1.73m??? Low >=60 [facility] Comment on above: Order Comment: Luz vaughan Type: BLOOD SPECIMENOrdering Facility: [facility] Address: [address] [place] [address] Result Comment: Breanne mated Glomerular Filtration Rate [...] Performed By: #### 2 4321-2 ####[facility] LABCLIA [id number] [place] [address] [place] Glucose [Mass/Vol] 148 mg/dL High 74-99 [facility] Comment on above: Order Comment: Luz vaughan Type: BLOOD SPECIMENOrdering Facility: [facility] Address: [address] [place] [address] Result Comment: The [place] Diabetes Association (ADA) provides guidance for cutoff [...] Standards of Medical Care in Diabetes 2016, [place] [employer]. Diabetes Care. 2016.39(Suppl 1). Performed By: #### 2 4321-2 ####[facility] LABCLIA [id number] [place] [address] [place] Potassium [Moles/Vol] 5.0 mmol/L Normal 3.7-5.1 [facility] Comment on above: Order Comment: Speci men Type: BLOOD SPECIMENOrdering Facility: [facility] Address: [address] [place] [address] Performed By: #### 2 4321-2 ####[facility] LABCLIA [id number] [place] [address] [place] Sodium [Moles/Vol] 141 mmol/L Normal 136-144 [facility] Comment on above: Order Comment: Speci men Type: BLOOD SPECIMENOrdering Facility: [facility] Address: [address] [place] [address] Performed By: #### 2 4321-2 ####[facility] LABCLIA [id number] [place] [address] [place] Urea nitrogen [Mass/Vol] 44 mg/dL High 9-24 [facility] Comment on above: Order Comment: Speci men Type: BLOOD SPECIMENOrdering Facility: [facility] Address: [address] [place] [address] Performed By: #### 2 4321-2 ####[facility] LABCLIA [id number] [place] [address] [place] NUTRITIONon 06-05-2023 NUTRITION [...] Comment: Speci men Type: BLOOD SPECIMENOrdering Facility: [facility] Address: [address] [place] [address] Performed By: #### 2 4321-2 ####[facility] LABCLIA [id number] [place] [address] [place] Calcium [Mass/Vol] 8.7 mg/dL Normal 8.5-10.2 [facility] Comment on above: Order Comment: Speci men Type: BLOOD SPECIMENOrdering Facility: [facility] Address: [address] [place] [address] Performed By: #### 2 4321-2 ####[facility] LABCLIA [id number] [place] [facility] [place] [address] [place] Chloride [Moles/Vol] 106 mmol/L High 97-105 [facility] Comment on above: Order Comment: Speci men Type: BLOOD SPECIMENOrdering Facility: [facility] Address: [address] [place] [address] Performed By: #### 2 4321-2 ####[facility] LABCLIA [id number] [facility] [place] [address] [place] CO2 [Moles/Vol] 26 mmol/L Normal 22-30 [facility] Comment on above: Order Comment: Speci men Type: BLOOD SPECIMENOrdering Facility: [facility] Address: [address] [place] [address] Performed By: #### 2 4321-2 ####[facility] LABCLIA [id number] [place] [address] [place] Creatinine [Mass/Vol] 2.33 mg/dL High 0.73-1.22 [facility] Comment on above: Order Comment: Speci men Type: BLOOD SPECIMENOrdering Facility: [facility] Address: [address] [place] [address] Performed By: #### 2 4321-2 ####[facility] LABCLIA [id number] [place] [address] [place] Creatinine and Glomerular filtration rate.predicted panel (S/P/Bld) 31 mL/min/1.73m??? Low >=60 [facility] Comment on above: Order Comment: Luz vaughan Type: BLOOD SPECIMENOrdering Facility: [facility] Address: [address] [place] [address] Result Comment: Breanne mated Glomerular Filtration Rate [...] actual GFR. Performed By: #### 2 4321-2 ####[facility] LABIA [id number] [place] [id number] [place] Glucose [Mass/Vol] 150 mg/dL High 74-99 [facility] Comment on above: Order Comment: Luz vaughan Type: BLOOD SPECIMENOrdering Facility: [facility] Address: [address] [place] [address] Result Comment: The [place] Diabetes Association (ADA) provides guidance for cutoff [...] Standards of Medical Care in Diabetes 2016, [place] [employer]. Diabetes Care. 2016.39(Suppl 1). Performed By: #### 2 4321-2 ####[facility] LABCLIA [id number] [place] [address] [place] Potassium [Moles/Vol] 5.1 mmol/L Normal 3.7-5.1 [facility] Comment on above: Order Comment: Speci men Type: BLOOD SPECIMENOrdering Facility: [facility] Address: [address] [place] [address] Performed By: #### 2 4321-2 ####[facility] LABCLIA [id number] [place] [address] [place] Sodium [Moles/Vol] 141 mmol/L Normal 136-144 [facility] Comment on above: Order Comment: Speci men Type: BLOOD SPECIMENOrdering Facility: [facility] Address: [address] [place] [address] Performed By: #### 2 4321-2 ####[facility] LABCLIA [id number] [place] [address] [place] Urea nitrogen [Mass/Vol] 45 mg/dL High 9-24 [facility] Comment on above: Order Comment: Speci men Type: BLOOD SPECIMENOrdering Facility: [facility] Address: [address] [place] [address] Performed By: #### 2 4321-2 ####[facility] LABCLIA [id number] [place] [address] [place] CBC panel Auto (Bld)on 06-03 Erythrocyte distribution width (RBC) [Ratio] 12.9 % Normal 11.5-15.0 [facility] Comment on above: Order Comment: Speci men Type: BLOOD SPECIMENOrdering Facility: [facility] Address: [address] [place] [address] Performed By: #### 5 8410-2, WAMMR ####[facility] LABCLIA [id number] [place] [address] [facility] Hematocrit (Bld) [Volume fraction] 35.5 % Low 39.0-51.0 [facility] Comment on above: Order Comment: Speci men Type: BLOOD SPECIMENOrdering Facility: [facility] Address: [address] [place] [address] Performed By: #### 5 8410-2, WAMMR ####[facility] LABCLIA [id number] [facility] [place] [address] [place] [facility] Hemoglobin (Bld) [Mass/Vol] 11.1 g/dL Low 13.0-17.0 [facility] Comment on above: Order Comment: Speci men Type: BLOOD SPECIMENOrdering Facility: [facility] Address: [address] [place] [address] Performed By: #### 5 8410-2, WAMMR ####[facility] LABCLIA [id number] [facility] [place] [address] [place] MCH (RBC) [Entitic mass] 28.5 pg Normal 26.0-34.0 [facility] Comment on above: Order Comment: Speci men Type: BLOOD SPECIMENOrdering Facility: [facility] Address: [address] [place] [address] Performed By: #### 5 8410-2, WAMMR ####[facility] LABCLIA [id number] [facility] [place] [address] [place] MCHC (RBC) [Mass/Vol] 31.3 g/dL Normal 30.5-36.0 [facility] Comment on above: Order Comment: Speci men Type: BLOOD SPECIMENOrdering Facility: [facility] Address: [address] [place] [address] Performed By: #### 5 8410-2, WAMMR ####[facility] LABCLIA [id number] [facility] [place] [address] [place] MCV (RBC) [Entitic vol] 91.0 fL Normal 80.0-100.0 [facility] Comment on above: Order Comment: Speci men Type: BLOOD SPECIMENOrdering Facility: [facility] Address: [address] [place] [address] Performed By: #### 5 8410-2, WAMMR ####[facility] LABCLIA [id number] [facility] [place] [address] [facility] Platelet mean volume (Bld) [Entitic vol] 10.5 fL Normal 9.0-12.7 [facility] Comment on above: Order Comment: Speci men Type: BLOOD SPECIMENOrdering Facility: [facility] Address: [address] [place] [address] Performed By: #### 5 8410-2, WAMMR ####[facility] LABCLIA [id number] [place] [address] [place] Platelets (Bld) [#/Vol] 217 10*3/uL Normal 150-400 [facility] Comment on above: Order Comment: Speci men Type: BLOOD SPECIMENOrdering Facility: [facility] Address: [address] [place] [address] Result Comment: No c lot detected. Performed By: #### 5 8410-2, WAMMR ####[facility] LABCLIA [id number] [place] [address] [place] RBC (Bld) [#/Vol] 3.90 10*6/uL Low 4.20-6.00 [facility] Comment on above: Order Comment: Speci men Type: BLOOD SPECIMENOrdering Facility: [facility] Address: [address] [place] [address] Performed By: #### 5 8410-2, WAMMR ####[facility] LABCLIA [id number] [facility] [place] [address] [place] WBC (Bld) [#/Vol] 3.18 10*3/uL Low 3.70-11.00 [facility] Comment on above: Order Comment: Speci men Type: BLOOD SPECIMENOrdering Facility: [facility] Address: [address] [place] [address] Performed By: #### 5 8410-2, WAMMR ####[facility] LABCLIA [id number] [facility] [place] [address] [place] MORPH WAM REFLEXon 4 Platelets Estimate (Bld) [#/Vol] Adequate Normal [facility] Comment on above: Order Comment: Speci men Type: BLOOD SPECIMENOrdering Facility: [facility] Address: [address] [place] [address] Performed By: #### 5 8410-2, WAMMR ####[facility] LABCLIA [id number] [facility] [place] [address] [facility] Urinalysis complete panel (U )on 06-04-2023 Bilirubin Ql (U) Negative Normal Negative [facility] Comment on above: Order Comment: Speci men Type: URINE SPECIMENOrdering Facility: [facility] Address: [address] [place] [address] Performed By: #### 2 4356-8 ####[facility] LABCLIA [id number] [place] [address] [facility] Clarity (Unsp spec) Clear Normal Clear [facility] Comment on above: Order Comment: Speci men Type: URINE SPECIMENOrdering Facility: [facility] Address: [address] [place] [address] Performed By: #### 2 4356-8 ####[facility] LABCLIA [id number] [place] [address] [facility] Color (U) Light Yellow Abnormal Yellow [facility] Comment on above: Order Comment: Speci men Type: URINE SPECIMENOrdering Facility: [facility] Address: [address] [place] [address] Performed By: #### 2 4356-8 ####[facility] LABCLIA [id number] [facility] [place] [address] [facility] Glucose Test strip (U) [Mass/Vol] 2+ Abnormal Negative [facility] Comment on above: Order Comment: Speci men Type: URINE SPECIMENOrdering Facility: [facility] Address: [address] [place] [address] Performed By: #### 2 4356-8 ####[facility] LABCLIA [id number] [place] [address] [place] Hemoglobin Ql (U) Trace Abnormal Negative [facility] Comment on above: Order Comment: Speci men Type: URINE SPECIMENOrdering Facility: [facility] Address: [address] [place] [address] Performed By: #### 2 4356-8 ####[facility] LABCLIA [id number] [facility] [place] [address] [place] Ketones Ql (U) Negative Normal Negative [facility] Comment on above: Order Comment: Speci men Type: URINE SPECIMENOrdering Facility: [facility] Address: [address] [place] [address] Performed By: #### 2 4356-8 ####[facility] LABCLIA [id number] [place] [address] [facility] Leukocyte esterase Test strip Ql (U) Negative Normal Negative [facility] Comment on above: Order Comment: Speci men Type: URINE SPECIMENOrdering Facility: [facility] Address: [address] [place] [address] Performed By: #### 2 4356-8 ####[facility] LABCLIA [id number] [place] [address] [place] [facility] Nitrite Ql (U) Negative Normal Negative [facility] Comment on above: Order Comment: Speci men Type: URINE SPECIMENOrdering Facility: [facility] Address: [address] [place] [address] Performed By: #### 2 4356-8 ####[facility] LABCLIA [id number] [place] [address] [place] pH (U) 6.5 [pH] Normal 5.0-8.0 [facility] Comment on above: Order Comment: Speci men Type: URINE SPECIMENOrdering Facility: [facility] Address: [address] [place] [address] Performed By: #### 2 4356-8 ####[facility] LABCLIA [id number] [place] [address] [place] Protein (U) [Mass/Vol] 3+ Abnormal Negative [facility] Comment on above: Order Comment: Speci men Type: URINE SPECIMENOrdering Facility: [facility] Address: [address] [place] [address] Performed By: #### 2 4356-8 ####[facility] LABCLIA [id number] [place] [address] [facility] RBC LM.HPF (Urine sed) [#/Area] 0-3 /HPF Normal 0-3 /HPF [facility] Comment on above: Order Comment: Speci men Type: URINE SPECIMENOrdering Facility: [facility] Address: [address] [place] [address] Performed By: #### 2 4356-8 ####[facility] LABCLIA [id number] [place] [id number] [facility] Specific gravity (U) [Rel density] 1.020 Normal 1.005-1.030 [facility] Comment on above: Order Comment: Speci men Type: URINE SPECIMENOrdering Facility: [facility] Address: [address] [place] [address] Performed By: #### 2 4356-8 ####[facility] LABCLIA [id number] [place] [id number] [facility] Urobilinogen Ql (U) 0.2 EU/dL Normal 0.2-1.0 EU/dL [facility] Comment on above: Order Comment: Speci men Type: URINE SPECIMENOrdering Facility: [facility] Address: [address] [place] [address] Performed By: #### 2 4356-8 ####[facility] LABCLIA [id number] [place] [id number] [facility] WBC LM.HPF (Urine sed) [#/Area] 0-5 /HPF Normal 0-5 /HPF [facility] Comment on above: Order Comment: Speci men Type: URINE SPECIMENOrdering Facility: [facility] Address: [address] [place] [address] Performed By: #### 2 4356-8 ####[facility] [place] LABCLIA [id number] [place] [address] [place] Basic metabolic 2000 panelon 06-03-2023 Anion gap [Moles/Vol] 10 mmol/L Normal 9-18 [facility] Comment on above: Order Comment: Speci men Type: BLOOD SPECIMENOrdering Facility: [facility] Address: [address] [place] [address] Performed By: #### 2 4321-2 ####[facility] [place] LABCLIA [id number] [place] [address] [place] Calcium [Mass/Vol] 8.7 mg/dL Normal 8.5-10.2 [facility] Comment on above: Order Comment: Speci men Type: BLOOD SPECIMENOrdering Facility: [facility] Address: [address] [place] [address] Performed By: #### 2 4321-2 ####[facility] [place] LABCLIA [id number] [place] [address] [place] Chloride [Moles/Vol] 105 mmol/L Normal 97-105 [facility] Comment on above: Order Comment: Speci men Type: BLOOD SPECIMENOrdering Facility: [facility] Address: [address] [place] [address] Performed By: #### 2 4321-2 ####[facility] [place] LABCLIA [id number] [place] [address] [place] CO2 [Moles/Vol] 26 mmol/L Normal 22-30 [facility] Comment on above: Order Comment: Speci men Type: BLOOD SPECIMENOrdering Facility: [facility] Address: [address] [place] [address] Performed By: #### 2 4321-2 ####[facility] [place] LABCLIA [id number] [place] [address] [place] Creatinine [Mass/Vol] 2.37 mg/dL High 0.73-1.22 [facility] Comment on above: Order Comment: Brooksjonas vaughan Type: BLOOD SPECIMENOrdering Facility: [facility] Address: [address] [place] [address] Performed By: #### 2 4321-2 ####[facility] LABIA [id number] [place] [address] [place] Creatinine and Glomerular filtration rate.predicted panel (S/P/Bld) 30 mL/min/1.73m??? Low >=60 [facility] Comment on above: Order Comment: Brooksjonas vaughan Type: BLOOD SPECIMENOrdering Facility: [facility] Address: [address] [place] [address] Result Comment: Breanne mated Glomerular Filtration Rate [...] actual GFR. Performed By: #### 2 4321-2 ####[facility] LABIA [id number] [place] [address] [place] Glucose [Mass/Vol] 152 mg/dL High 74-99 [place] [facility] Comment on above: Order Comment: Luz vaughan Type: BLOOD SPECIMENOrdering Facility: [facility] Address: [address] [place] [address] Result Comment: The [place] Diabetes Association (ADA) provides guidance for cutoff [...] Standards of Medical Care in Diabetes 2016, [place] [employer]. Diabetes Care. 2016.39(Suppl 1). Performed By: #### 2 4321-2 ####[facility] [place] LABCLIA [id number] [place] [address] [place] Potassium [Moles/Vol] 5.0 mmol/L Normal 3.7-5.1 [facility] Comment on above: Order Comment: Speci men Type: BLOOD SPECIMENOrdering Facility: [facility] Address: [address] [place] [address] Performed By: #### 2 4321-2 ####[facility] [place] LABCLIA [id number] [place] [address] [place] Sodium [Moles/Vol] 141 mmol/L Normal 136-144 [facility] Comment on above: Order Comment: Speci men Type: BLOOD SPECIMENOrdering Facility: [facility] Address: [address] [place] [address] Performed By: #### 2 4321-2 ####[facility] [place] LABCLIA [id number] [place] [facility] [place] [address] [place] Urea nitrogen [Mass/Vol] 44 mg/dL High 9-24 [facility] Comment on above: Order Comment: Speci men Type: BLOOD SPECIMENOrdering Facility: [facility] Address: [address] [place] [address] Performed By: #### 2 4321-2 ####[facility] [place] LABCLIA [id number] [place] [address] [place] Basic metabolic 2000 panelon 06-02-2023 Anion gap [Moles/Vol] 11 mmol/L Normal 9-18 [facility] Comment on above: Order Comment: Speci men Type: BLOOD SPECIMENOrdering Facility: [facility] Address: [address] [place] [address] Performed By: #### 2 4321-2 ####[facility] [place] LABCLIA [id number] [place] [address] [place] Calcium [Mass/Vol] 8.9 mg/dL Normal 8.5-10.2 [facility] Comment on above: Order Comment: Speci men Type: BLOOD SPECIMENOrdering Facility: [facility] Address: [address] [place] [address] Performed By: #### 2 4321-2 ####[facility] [place] LABCLIA [id number] [facility] [place] [address] [place] Chloride [Moles/Vol] 104 mmol/L Normal 97-105 [facility] Comment on above: Order Comment: Speci men Type: BLOOD SPECIMENOrdering Facility: [facility] Address: [address] [place] [address] Performed By: #### 2 4321-2 ####[facility] [place] LABCLIA [id number] [place] [address] [place] CO2 [Moles/Vol] 27 mmol/L Normal 22-30 [facility] Comment on above: Order Comment: Speci men Type: BLOOD SPECIMENOrdering Facility: [facility] Address: [address] [place] [address] Performed By: #### 2 4321-2 ####[facility] LABCL[facility] [id number] [place] [address] [place] Creatinine [Mass/Vol] 2.38 mg/dL High 0.73-1.22 [facility] Comment on above: Order Comment: Speci men Type: BLOOD SPECIMENOrdering Facility: [facility] Address: [address] [place] [address] Performed By: #### 2 4321-2 ####[facility] [place] LABCLIA [id number] [facility] [place] [address] [facility] Creatinine and Glomerular filtration rate.predicted panel (S/P/Bld) 30 mL/min/1.73m??? Low >=60 [facility] Comment on above: Order Comment: Speci men Type: BLOOD SPECIMENOrdering Facility: [facility] Address: [address] [place] [address] Result Comment: Breanne mated Glomerular Filtration Rate [...] actual GFR. Performed By: #### 2 4321-2 ####[facility] LABCLIA [id number] [place] [address] [place] Glucose [Mass/Vol] 146 mg/dL High 74-99 [facility] Comment on above: Order Comment: Luz men Type: BLOOD SPECIMENOrdering Facility: [facility] Address: [address] [place] [address] Result Comment: The [place] Diabetes Association (ADA) provides guidance for cutoff [...] Standards of Medical Care in Diabetes 2016, [place] [employer]. Diabetes Care. 2016.39(Suppl 1). Performed By: #### 2 4321-2 ####[facility] LABCLIA [id number] [place] [address] [place] Potassium [Moles/Vol] 5.3 mmol/L High 3.7-5.1 [facility] Comment on above: Order Comment: Luz vaughan Type: BLOOD SPECIMENOrdering Facility: [facility] Address: [address] [place] [address] Performed By: #### 2 4321-2 ####[facility] [place] LABCLIA [id number] [place] [address] [place] Sodium [Moles/Vol] 142 mmol/L Normal 136-144 [facility] Comment on above: Order Comment: Brooksi men Type: BLOOD SPECIMENOrdering Facility: [facility] Address: [address] [place] [address] Performed By: #### 2 4321-2 ####[facility] [place] LABCLIA [id number] [place] [address] [place] Urea nitrogen [Mass/Vol] 48 mg/dL High 9-24 [facility] Comment on above: Order Comment: Speci men Type: BLOOD SPECIMENOrdering Facility: [facility] Address: [address] [place] [address] Performed By: #### 2 4321-2 ####[facility] [place] LABCLIA [id number] [place] [address] [place] THERAPY NTon 06-02-2023 THERAPY [...] Comment: Speci men Type: BLOOD SPECIMENOrdering Facility: [facility] Address: [address] [place] [address] Performed By: #### 2 4321-2 ####[facility] [place] LABCLIA [id number] [place] [address] [place] Calcium [Mass/Vol] 8.4 mg/dL Low 8.5-10.2 [facility] Comment on above: Order Comment: Speci men Type: BLOOD SPECIMENOrdering Facility: [facility] Address: [address] [place] [address] Performed By: #### 2 4321-2 ####[facility] [place] LABCLIA [id number] [place] [address] [place] Chloride [Moles/Vol] 103 mmol/L Normal 97-105 [facility] Comment on above: Order Comment: Speci men Type: BLOOD SPECIMENOrdering Facility: [facility] Address: [address] [place] [address] Performed By: #### 2 4321-2 ####[facility] [place] LABCLIA [id number] [place] [address] [place] CO2 [Moles/Vol] 23 mmol/L Normal 22-30 [facility] Comment on above: Order Comment: Speci men Type: BLOOD SPECIMENOrdering Facility: [facility] Address: [address] [place] [address] Performed By: #### 2 4321-2 ####[facility] LABCLIA [id number] [place] [address] [place] Creatinine [Mass/Vol] 2.34 mg/dL High 0.73-1.22 [facility] Comment on above: Order Comment: Speci men Type: BLOOD SPECIMENOrdering Facility: [facility] Address: [address] [place] [address] Performed By: #### 2 4321-2 ####[facility] LABCLIA [id number] [place] [address] [facility] Creatinine and Glomerular filtration rate.predicted panel (S/P/Bld) 30 mL/min/1.73m??? Low >=60 [facility] Comment on above: Order Comment: Speci men Type: BLOOD SPECIMENOrdering Facility: [facility] Address: [address] [place] [address] Result Comment: Breanne mated Glomerular Filtration Rate [...] actual GFR. Performed By: #### 2 4321-2 ####[facility] LABCLIA [id number] [place] [address] [place] Glucose [Mass/Vol] 242 mg/dL High 74-99 [facility] Comment on above: Order Comment: Speci clement Type: BLOOD SPECIMENOrdering Facility: [facility] Address: [address] [place] [address] Result Comment: The [place] Diabetes Association (ADA) provides guidance for cutoff [...] Standards of Medical Care in Diabetes 2016, [place] [employer]. Diabetes Care. 2016.39(Suppl 1). Performed By: #### 2 4321-2 ####[facility] LABCLIA [id number] [place] [address] [place] Potassium [Moles/Vol] 4.9 mmol/L Normal 3.7-5.1 [facility] Comment on above: Order Comment: Luz clement Type: BLOOD SPECIMENOrdering Facility: [facility] Address: [address] [place] [address] Performed By: #### 2 4321-2 ####[facility] LABCLIA [id number] [place] [address] [place] Sodium [Moles/Vol] 136 mmol/L Normal 136-144 [facility] Comment on above: Order Comment: Brooksjonas vaughan Type: BLOOD SPECIMENOrdering Facility: [facility] Address: [address] [place] [address] Performed By: #### 2 4321-2 ####[facility] [place] LABCLIA [id number] [facility] [place] [address] [place] Urea nitrogen [Mass/Vol] 49 mg/dL High 9-24 [facility] Comment on above: Order Comment: Speci men Type: BLOOD SPECIMENOrdering Facility: [facility] Address: [address] [place] [address] Performed By: #### 2 4321-2 ####[facility] LABCLIA [id number] [place] [address] [place] CASE MGT INIT ASSESon 2023 CASE MGT INIT ASSES Normal [facility] CBC panel Auto (Bld)on 05-30 Erythrocyte distribution width (RBC) [Ratio] 13.3 % Normal 11.5-15.0 [facility] Comment on above: Order Comment: Speci men Type: BLOOD SPECIMENOrdering Facility: [facility] Address: [address] [place] [address] Performed By: #### 5 8410-2 ####[facility] LABCLIA [id number] [place] [address] [place] Hematocrit (Bld) [Volume fraction] 34.3 % Low 39.0-51.0 [facility] Comment on above: Order Comment: Speci men Type: BLOOD SPECIMENOrdering Facility: [facility] Address: [address] [place] [address] Performed By: #### 5 8410-2 ####[facility] LABCLIA [id number] [place] [address] [place] Hemoglobin (Bld) [Mass/Vol] 11.1 g/dL Low 13.0-17.0 [facility] Comment on above: Order Comment: Speci men Type: BLOOD SPECIMENOrdering Facility: [facility] Address: [address] [place] [address] Performed By: #### 5 8410-2 ####[facility] LABCLIA [id number] [place] [address] [place] MCH (RBC) [Entitic mass] 29.4 pg Normal 26.0-34.0 [facility] Comment on above: Order Comment: Speci men Type: BLOOD SPECIMENOrdering Facility: [facility] Address: [address] [place] [address] Performed By: #### 5 8410-2 ####[facility] [place] LABCLIA [id number] [place] [facility] [place] [address] [place] MCHC (RBC) [Mass/Vol] 32.4 g/dL Normal 30.5-36.0 [facility] Comment on above: Order Comment: Speci men Type: BLOOD SPECIMENOrdering Facility: [facility] Address: [address] [place] [address] Performed By: #### 5 8410-2 ####[facility] LABCLIA [id number] [facility] [place] [address] [place] MCV (RBC) [Entitic vol] 91.0 fL Normal 80.0-100.0 [facility] Comment on above: Order Comment: Speci men Type: BLOOD SPECIMENOrdering Facility: [facility] Address: [address] [place] [address] Performed By: #### 5 8410-2 ####[facility] LABCLIA [id number] [facility] [place] [address] [place] Platelet mean volume (Bld) [Entitic vol] 9.7 fL Normal 9.0-12.7 [facility] Comment on above: Order Comment: Speci men Type: BLOOD SPECIMENOrdering Facility: [facility] Address: [address] [place] [address] Performed By: #### 5 8410-2 ####[facility] LABCLIA [id number] [place] [address] [place] Platelets (Bld) [#/Vol] 225 10*3/uL Normal 150-400 [facility] Comment on above: Order Comment: Speci men Type: BLOOD SPECIMENOrdering Facility: [facility] Address: [address] [place] [address] Performed By: #### 5 8410-2 ####[facility] [place] LABCLIA [id number] [place] [address] [place] RBC (Bld) [#/Vol] 3.77 10*6/uL Low 4.20-6.00 [facility] Comment on above: Order Comment: Speci men Type: BLOOD SPECIMENOrdering Facility: [facility] Address: [address] [place] [address] Performed By: #### 5 8410-2 ####[facility] [place] LABCLIA [id number] [place] [address] [place] WBC (Bld) [#/Vol] 3.75 10*3/uL Normal 3.70-11.00 [facility] Comment on above: Order Comment: Speci men Type: BLOOD SPECIMENOrdering Facility: [facility] Address: [address] [place] [address] Performed By: #### 5 8410-2 ####[facility] LABCLIA [id number] [place] [address] [facility] [place] NURSING PROGon 05-30-2023 [...] Comment: Speci men Type: BLOOD SPECIMENOrdering Facility: [facility] Address: [address] [place] [address] Performed By: #### 5 8410-2 ####[facility] [place] LABCLIA [id number] [place] [address] [facility] Hematocrit (Bld) [Volume fraction] 35.9 % Low 39.0-51.0 [facility] Comment on above: Order Comment: Speci men Type: BLOOD SPECIMENOrdering Facility: [facility] Address: [address] [place] [address] Performed By: #### 5 8410-2 ####[facility] LABCLIA [id number] [place] [address] [place] [facility] Hemoglobin (Bld) [Mass/Vol] 11.4 g/dL Low 13.0-17.0 [facility] Comment on above: Order Comment: Speci men Type: BLOOD SPECIMENOrdering Facility: [facility] Address: [address] [place] [address] Performed By: #### 5 8410-2 ####[facility] LABCLIA [id number] [place] [address] [place] MCH (RBC) [Entitic mass] 28.9 pg Normal 26.0-34.0 [facility] Comment on above: Order Comment: Speci men Type: BLOOD SPECIMENOrdering Facility: [facility] Address: [address] [place] [address] Performed By: #### 5 8410-2 ####[facility] LABCLIA [id number] [place], [place] [address] [place] [address] [place] MCHC (RBC) [Mass/Vol] 31.8 g/dL Normal 30.5-36.0 [facility] Comment on above: Order Comment: Speci men Type: BLOOD SPECIMENOrdering Facility: [facility] Address: [address] [place] [address] Performed By: #### 5 8410-2 ####[facility] LABCLIA [id number] [place] [address] [place] MCV (RBC) [Entitic vol] 90.9 fL Normal 80.0-100.0 [facility] Comment on above: Order Comment: Speci men Type: BLOOD SPECIMENOrdering Facility: [facility] Address: [address] [place] [address] Performed By: #### 5 8410-2 ####[facility] [place] LABCLIA [id number] [place] [address] [place] Platelet mean volume (Bld) [Entitic vol] 9.3 fL Normal 9.0-12.7 [facility] Comment on above: Order Comment: Speci men Type: BLOOD SPECIMENOrdering Facility: [facility] Address: [address] [place] [address] Performed By: #### 5 8410-2 ####[facility] [place] LABCLIA [id number] [place] [address] [place] Platelets (Bld) [#/Vol] 221 10*3/uL Normal 150-400 [facility] Comment on above: Order Comment: Speci men Type: BLOOD SPECIMENOrdering Facility: [facility] Address: [address] [place] [address] Performed By: #### 5 8410-2 ####[facility] [place] LABCLIA [id number] [place] [address] [facility] [place] RBC (Bld) [#/Vol] 3.95 10*6/uL Low 4.20-6.00 [facility] Comment on above: Order Comment: Speci men Type: BLOOD SPECIMENOrdering Facility: [facility] Address: [address] [place] [address] Performed By: #### 5 8410-2 ####[facility] [place] LABCLIA [id number] [place] [address] [place] WBC (Bld) [#/Vol] 4.62 10*3/uL Normal 3.70-11.00 [facility] Comment on above: Order Comment: Speci men Type: BLOOD SPECIMENOrdering Facility: [facility] Address: [address] [place] [address] Performed By: #### 5 8410-2 ####[facility] [place] LABCLIA [id number] [place] [address] [facility] Comprehensive metabolic 2000 panelon 05-29-2023 Albumin [Mass/Vol] 2.9 g/dL Low 3.9-4.9 [facility] Comment on above: Order Comment: Speci men Type: BLOOD SPECIMENOrdering Facility: [facility] Address: [address] [place] [address] Performed By: #### 2 4323-8 ####[facility] [place] LABCLIA [id number] [facility] [place] [address] [place] [facility] ALP [Catalytic activity/Vol] 109 U/L Normal 38-113 [facility] Comment on above: Order Comment: Speci men Type: BLOOD SPECIMENOrdering Facility: [facility] Address: [address] [place] [address] Performed By: #### 2 4323-8 ####[facility] [place] LABCLIA [id number] [facility] [place] [address] [place] [facility] ALT With P-5'-P [Catalytic activity/Vol] 11 U/L Normal 10-54 [facility] Comment on above: Order Comment: Speci men Type: BLOOD SPECIMENOrdering Facility: [facility] Address: [address] [place] [address] Performed By: #### 2 4323-8 ####[facility] [place] LABCLIA [id number] [facility] [place] [address] [facility] [place] Anion gap [Moles/Vol] 10 mmol/L Normal 9-18 [facility] Comment on above: Order Comment: Speci men Type: BLOOD SPECIMENOrdering Facility: [facility] Address: [address] [place] [address] Performed By: #### 2 4323-8 ####[facility] [place] LABCLIA [id number] [facility] [facility] [place] [address] [place] AST With P-5'-P [Catalytic activity/Vol] 13 U/L Low 14-40 [facility] Comment on above: Order Comment: Speci men Type: BLOOD SPECIMENOrdering Facility: [facility] Address: [address] [place] [address] Performed By: #### 2 4323-8 ####[facility] [place] LABCLIA [id number] [place] [address] [place] Bilirubin [Mass/Vol] 0.3 mg/dL Normal 0.2-1.3 [facility] Comment on above: Order Comment: Speci men Type: BLOOD SPECIMENOrdering Facility: [facility] Address: [address] [place] [address] Performed By: #### 2 4323-8 ####[facility] [place] LABCLIA [id number] [facility] [place] [address] [place] Calcium [Mass/Vol] 8.7 mg/dL Normal 8.5-10.2 [facility] Comment on above: Order Comment: Speci men Type: BLOOD SPECIMENOrdering Facility: [facility] Address: [address] [place] [address] Performed By: #### 2 4323-8 ####[facility] [place] LABCLIA [id number] [facility] [place] [address] [place] Chloride [Moles/Vol] 104 mmol/L Normal 97-105 [facility] Comment on above: Order Comment: Speci men Type: BLOOD SPECIMENOrdering Facility: [facility] Address: [address] [place] [address] Performed By: #### 2 4323-8 ####[facility] [place] LABCLIA [id number] [facility] [place] [address] [place] CO2 [Moles/Vol] 24 mmol/L Normal 22-30 [facility] Comment on above: Order Comment: Speci men Type: BLOOD SPECIMENOrdering Facility: [facility] Address: [address] [place] [address] Performed By: #### 2 4323-8 ####[facility] [place] LABCLIA [id number] [facility] [place] [address] [place] Creatinine [Mass/Vol] 2.49 mg/dL High 0.73-1.22 [facility] Comment on above: Order Comment: Speci men Type: BLOOD SPECIMENOrdering Facility: [facility] Address: [address] [place] [address] Performed By: #### 2 4323-8 ####[facility] [employer] LABTrueViewIA [id number] [place] [address] [place] Creatinine and Glomerular filtration rate.predicted panel (S/P/Bld) 28 mL/min/1.73m??? Low >=60 [facility] Comment on above: Order Comment: Luz vaughan Type: BLOOD SPECIMENOrdering Facility: [facility] Address: [address] [place] [address] Result Comment: Breanne mated Glomerular Filtration Rate [...] GFR. Performed By: #### 2 4323-8 ####[facility] LABCLIA [id number] [place] [id number] [place] Glucose [Mass/Vol] 240 mg/dL High 74-99 [facility] Comment on above: Order Comment: Luz vaughan Type: BLOOD SPECIMENOrdering Facility: [facility] Address: [address] [place] [address] Result Comment: The [place] Diabetes Association (ADA) provides guidance for cutoff [...] Standards of Medical Care in Diabetes 2016, [place] [employer]. Diabetes Care. 2016.39(Suppl 1). Performed By: #### 2 4323-8 ####[facility] [place] LABCLIA [id number] [place] [address] [place] Potassium [Moles/Vol] 6.0 mmol/L High 3.7-5.1 [facility] Comment on above: Order Comment: Speci men Type: BLOOD SPECIMENOrdering Facility: [facility] Address: [address] [place] [address] Performed By: #### 2 4323-8 ####[facility] [place] LABCLIA [id number] [facility] [place] [address] [place] Protein [Mass/Vol] 5.6 g/dL Low 6.3-8.0 [facility] Comment on above: Order Comment: Speci men Type: BLOOD SPECIMENOrdering Facility: [facility] Address: [address] [place] [address] Performed By: #### 2 4323-8 ####[facility] [place] LABCLIA [id number] [facility] [place] [address] [place] Sodium [Moles/Vol] 138 mmol/L Normal 136-144 [facility] Comment on above: Order Comment: Speci men Type: BLOOD SPECIMENOrdering Facility: [facility] Address: [address] [place] [address] Performed By: #### 2 4323-8 ####[facility] [place] LABCLIA [id number] [facility] [place] [address] [place] Urea nitrogen [Mass/Vol] 54 mg/dL High 9-24 [facility] Comment on above: Order Comment: Speci men Type: BLOOD SPECIMENOrdering Facility: [facility] Address: [address] [place] [address] Performed By: #### 2 4323-8 ####[facility] [place] LABCLIA [id number] [facility] [place] [address] [place] NUTRITIONon 05-29-2023 NUTRITION Normal [facility] POTASSIUM BLDon 05-29-2023 Potassium [Moles/Vol] 4.6 mmol/L Normal 3.7-5.1 [facility] Comment on above: Order Comment: Speci men Type: BLOOD SPECIMENOrdering Facility: [facility] Address: [address] [place] [address] Performed By: #### K 1 ####[facility] LABCLIA [id number] [place] [address] [place] PT EDon 05-29-2023 [...] 444 mg/dL Abnormal 74 - 99 mg/dL [facility] HEMOGLOBIN A1C (POC)on 05-23 HbA1c (Bld) [Mass fraction] 13.9 % Abnormal 4.3 - 5.6 % [facility] CNPTOUTREACHon 05-19-2023 CNPTOUTREACH Normal [facility] ECHOon 12-01-2022 [facility] NM CARDIAC PERF STRESS/PHARM on 12-01-2022 [facility] IR INJ PROC FOR HIP ARTHOGRA M (AK)on 08-30-2022 [facility] HEMOGLOBIN A1C (POC)on 06-29 HbA1c (Bld) [Mass fraction] 8.9 % Abnormal 4.2 - 5.6 % [facility] CBC W Auto Differential pane l (Bld)on 06-01-2022 Basophils (Bld) [#/Vol] 0.03 10*3/uL <0.11 k/uL [facility] Basophils/100 WBC (Bld) 0.4 % [facility] Differential cell count method Nom (Bld) Auto [facility] Eosinophils (Bld) [#/Vol] 0.14 10*3/uL <0.46 k/uL [facility] Eosinophils/100 WBC (Bld) 1.9 % [facility] Erythrocyte distribution width (RBC) [Ratio] 12.8 % 11.5 - 15.0 % [facility] Hematocrit (Bld) [Volume fraction] 44.6 % 39.0 - 51.0 % [facility] Hemoglobin (Bld) [Mass/Vol] 14.6 g/dL 13.0 - 17.0 g/dL [facility] Immature granulocytes (Bld) [#/Vol] 0.04 10*3/uL <0.10 k/uL [facility] Immature granulocytes/100 WBC (Bld) 0.5 % [facility] Lymphocytes (Bld) [#/Vol] 1.73 10*3/uL 1.00 - 4.00 k/uL [facility] Lymphocytes/100 WBC (Bld) 23.3 % [facility] MCH (RBC) [Entitic mass] 28.5 pg 26.0 - 34.0 pg [facility] MCHC (RBC) [Mass/Vol] 32.7 g/dL 30.5 - 36.0 g/dL [facility] MCV (RBC) [Entitic vol] 87.1 fL 80.0 - 100.0 fL [facility] Monocytes (Bld) [#/Vol] 0.55 10*3/uL <0.87 k/uL [facility] Monocytes/100 WBC (Bld) 7.4 % [facility] Neutrophils (Bld) [#/Vol] 4.92 10*3/uL 1.45 - 7.50 k/uL [facility] Neutrophils/100 WBC (Bld) 66.5 % [facility] Nucleated RBC (Bld) [#/Vol] <0.01 k/uL [facility] Nucleated RBC/100 WBC (Bld) [Ratio] 0.0 /100 WBC [facility] Platelet mean volume (Bld) [Entitic vol] 10.1 fL 9.0 - 12.7 fL [facility] Platelets (Bld) [#/Vol] 289 10*3/uL 150 - 400 k/uL [facility] RBC (Bld) [#/Vol] 5.12 10*6/uL 4.20 - 6.0 0 m/uL [facility] WBC (Bld) [#/Vol] 7.41 10*3/uL 3.70 - 11. 00 k/uL [facility] CEA BLDon 06-01-2022 Carcinoembryonic Ag [Mass/Vol] 3.7 ng/mL High <3.0 ng/mL [facility] Comprehensive metabolic 2000 panelon 06-01-2022 Albumin [Mass/Vol] 4.1 g/dL 3.9 - 4.9 g/dL [facility] ALP [Catalytic activity/Vol] 104 U/L 38 - 113 U/L [facility] ALT With P-5'-P [Catalytic activity/Vol] 16 U/L 10 - 54 U/L [facility] Anion gap [Moles/Vol] 9 mmol/L 9 - 18 mmol/L [facility] AST With P-5'-P [Catalytic activity/Vol] 14 U/L 14 - 40 U/L [facility] Bilirubin [Mass/Vol] 0.3 mg/dL 0.2 - 1 .3 mg/dL [facility] Calcium [Mass/Vol] 10.6 mg/dL High 8.5 - 10. 2 mg/dL [facility] Chloride [Moles/Vol] 102 mmol/L 97 - 10 5 mmol/L [facility] CO2 [Moles/Vol] 29 mmol/L 22 - 30 mmol/L [facility] Creatinine [Mass/Vol] 1.69 mg/dL High 0.73 - 1.22 mg/dL [facility] Estimated Glomerular Filtration Rate 45 mL/min/1.73m Low >=60 mL/min/1.73m [facility] Glucose [Mass/Vol] 215 mg/dL High 74 - 99 mg/dL [facility] Potassium [Moles/Vol] 5.8 mmol/L High 3.7 - 5.1 mmol/L [facility] Protein [Mass/Vol] 6.6 g/dL 6.3 - 8.0 g/dL [facility] Sodium [Moles/Vol] 140 mmol/L 136 - 144 mmol/L [facility] Urea nitrogen [Mass/Vol] 39 mg/dL High 9 - 24 mg/dL [facility] GLUCOSE, BLOOD (POC)on 05-18 Glucose [Mass/Vol] 196 mg/dL Abnormal 74 - 99 mg/dL [facility] HEMOGLOBIN A1C (POC)on 05-18 HbA1c (Bld) [Mass fraction] 9.7 % Abnormal 4.2 - 5.6 % [facility] GLUCOSE, BLOOD (POC)on 04-13 Glucose [Mass/Vol] 234 mg/dL Abnormal 74 - 99 mg/dL [facility] HEMOGLOBIN A1C (POC)on 04-13 HbA1c (Bld) [Mass fraction] 10.5 % Abnormal 4.2 - 5.6 % [facility] GLUCOSE, BLOOD (POC)on 03-01 Glucose [Mass/Vol] 384 mg/dL Abnormal 74 - 99 mg/dL [facility] HEMOGLOBIN A1C (POC)on 03-01 HbA1c (Bld) [Mass fraction] 10.7 % Abnormal 4.2 - 5.6 % [facility] CASE MANAGEMon 01-27-2022 CASE MANAGEM HNO ID: [id number] Author: OSCAR Lopez Service: Social Work Author Type: Jogger Operator Type: Care Mgt Progress Note Filed: 01/27/2022 12:32 PM Note Text: BEHAVIORAL HEALTH SOCIAL WORK DISCHARGE NOTE SERVICE DATE: 01/27/2022 SERVICE TIME: 8:58 AM Discharge Information Row Name Admission (Current) from 01/20/[address] [facility] 6D Psychiatry Follow-Up Appointment Psychiatrist Name Deb Gomez [facility] Address / Phone # [address] [facility] [place] [address] / Appointment Date 02/11/22 Appointment Time 8:30AM Additional Instructions Bring insurnance card and photo ID. The office is located on the 4th floor of the career and guidance counselor center ([facility]). Discharge Disposition Discharge Disposition Skilled Care Residential Residential Referral Information Agency Name [facility] Address [address] , [place] [address] Additional Discharge Information Additional Discharge Resources [facility], 6D, Additional Discharge Follow Up Information Once pt is ready for discharge from SNF, please provide pt with transportation back to [facility] to forklift picker his car from the parking lot. Patient/Betting Clerk Agreeable With Discharge Plan: Yes FREEDOM OF CHOICE EXPLAINED? [facility]-owned/affiliated facilities and agencies have been identified Patient/Betting Clerk Given/Explained Medicare Discharge Notice (IM letter): Patient Refused/Declined (Date and Time): 01/27/2022 TRANSPORTATION ARRANGEMENTS: [facility] PRESCRIPTIONS FILLED PRIOR TO DISCHARGE: No, patient discharged to long term ADDITIONAL NOTES: Final arrangements made for pt's discharge today. The pt is aware and agreeable with discharge plans. Update provided to the facility. The pt's car will remain in hospital parking lot. The facility will arrange transportation for pt to return to [facility] to forklift picker his car once SNF stay is complete. Hospital police/security team are aware. SIGNATURE: AMERICA Lopez, OSCAR PATIENT NAME: José Manuel Ashton DATE: January 27, 2022 TIME: 8:58 AM [facility] HNO ID: [id number] Author: Luis Carlos Short Jr., MD Service: [...] Feeling physically and emotionally improved, discharge to shelter facility on 01/27/22 was activated. Suicide risk [...] PATIENT CONDITION AT DISCHARGE: Improved DISCHARGE DISPOSITION: Assisted Facility COMPLICATIONS: None At this time the patient has maximized his benefit from hospitalization.. The patient denies suicidal or homicidal ideation, intent or plan and is safe for discharge. The patient voices a readiness to transition to shelter care setting, and has agreed to our [...] management at SNF, therapeutic drug monitoring at [facility] for depakote 2. Psychological Management Recommendations: jayla (more content not included)... [facility] NURSING PROGon 01-27-2022 NURSING PROG HNO ID: [id number] Author: Huong Glass RN Service: Nursing Author Type: Counselor Type: Nursing Progress Note Filed: 01/27/2022 12:25 PM Note Text: [phone] Assumed care of pt awake in bed. [...] peers. Report called to Harish GARZA at [facility]. Pt left unit via stretcher at 1133. Safety precautions maintained. [facility] ALLIED HEALTHon 01-26-2022 ALLIED HEALTH HNO ID: [id number] Author: RT Juarez(R) Service: Radiology Author Type: [...] RT Juarez(R) January 26, 2022 10:57 AM [facility] Basic metabolic 2000 panelon 01-26-2022 Anion gap [Moles/Vol] 6 mmol/L Low 9-18 [facility] Comment on above: Order Comment: Speci men Type: BLOOD SPECIMENOrdering Facility: [facility] Address: [address] [place] [address] Performed By: #### 1 9123-9, 77547-2, ####[facility] LABORATORYCLIA [id number] [place] [address] [place] Calcium [Mass/Vol] 9.4 mg/dL Normal 8.5-10.2 [facility] Comment on above: Order Comment: Speci men Type: BLOOD SPECIMENOrdering Facility: [facility] Address: [address] [place], [place] [phone] Performed By: #### 1 9123-9, 81058-3, ####[facility] LABORATORYCLIA [id number] [place] [id number] [place] Chloride [Moles/Vol] 99 mmol/L Normal 97-105 [facility] Comment on above: Order Comment: Speci men Type: BLOOD SPECIMENOrdering Facility: [facility] Address: [address] [place], [place] [phone] Performed By: #### 1 9123-9, 45425-1, ####[facility] LABORATORYCLIA [id number] [address] [address] [place] CO2 [Moles/Vol] 31 mmol/L High 22-30 [facility] Comment on above: Order Comment: Speci men Type: BLOOD SPECIMENOrdering Facility: [facility] Address: [address] [place] [address] Performed By: #### 1 9123-9, 29506-8, ####[facility] LABORATORYCLIA [id number] [place] [id number] [place] Creatinine [Mass/Vol] 1.19 mg/dL Normal 0.73-1.22 [facility] Comment on above: Order Comment: Speci men Type: BLOOD SPECIMENOrdering Facility: [facility] Address: [address] [place] [address] Performed By: #### 1 9123-9, 78025-8, ####[facility] LABORATORYCLIA [id number] [place] [id number] [place] ESTIMATED GLOMERULAR FILTRATION RATE 69 mL/min/1.73m??? Normal >=60 [facility] Comment on above: Order Comment: Speci men Type: BLOOD SPECIMENOrdering Facility: [facility] Address: [address] [place] [address] Result Comment: Breanne mated Glomerular Filtration Rate [...] actual GFR. Performed By: #### 1 9123-9, 83331-8, ####[facility] LABORATORYCLIA [id number] [place] [id number] [place] Glucose [Mass/Vol] 161 mg/dL High 74-99 [facility] Comment on above: Order Comment: Speci men Type: BLOOD SPECIMENOrdering Facility: [facility] Address: [address] [place], [place] [address] [address] Result Comment: The [place] Diabetes Association (ADA) provides guidance for cutoff [...] Standards of Medical Care in Diabetes 2016, [place] [employer] Association. Diabetes Care. 2016.39(Suppl 1). Performed By: #### 1 9123-9, 60395-3, ####[facility] LABORATORYCLIA [id number] [place] [id number] [place] Potassium [Moles/Vol] 5.0 mmol/L Normal 3.7-5.1 [facility] Comment on above: Order Comment: Speci men Type: BLOOD SPECIMENOrdering Facility: [facility] Address: [address] [place] [address] Performed By: #### 1 9123-9, 68942-2, ####[facility] LABORATORYCLIA [id number] [place] [id number] [place] Sodium [Moles/Vol] 136 mmol/L Normal 136-144 [facility] Comment on above: Order Comment: Speci men Type: BLOOD SPECIMENOrdering Facility: [facility] Address: [address] [place] [address] Performed By: #### 1 9123-9, 23388-4, 1987-08, ####[facility] LABORATORYCLIA [id number] [address] [address] [place] Urea nitrogen [Mass/Vol] 26 mg/dL High 9-24 [facility] Comment on above: Order Comment: Speci men Type: BLOOD SPECIMENOrdering Facility: [facility] Address: [address] [place], [place] [address] Performed By: #### 1 9123-9, 80921-4, 1987-, 04071-8 ####[facility] LABORATORYCLIA [id number] [address] [place] [address] [facility] [place] CASE MANAGEMon 01-26-2022 CASE MANAGEM HNO ID: [id number] Author: OSCAR Lopez Service: Social Work Author Type: Jogger Operator Type: Care Mgt Progress Note Filed: 01/26/2022 5:01 PM Note Text: BEHAVIORAL HEALTH SOCIAL WORK PROGRESS NOTE SERVICE DATE: 01/26/2022 SERVICE TIME: 4:50 PM Pt's discharge today has been cancelled due to not being medically clear. This repairer typewriter was made aware today that pt's car is parked in the hospital parking lot. Informed pt his car will need to remain in parking lot until SNF stay is complete or he could make arrangements with family to forklift picker the car. Pt appears frustrated, stating I don't know what to do.. He reports I don't have anyone to forklift picker the car that knows how to drive in the city.. Pt agreeable to leaving his car in hospital parking lot if approved by hospital security team and if his ambulance ride to facility will be covered by insurance. [facility] contacted billing department (phone #: [phone]) for [facility] [employer]. According to their billing department, pt has Medicare and [place] Medicaid. Billing department reports pt should not have a copay or any financial responsibility for ambulance ride.. [facility] informed pt of call with billing department. Pt remains agreeable to being transported to SNF by ambulance. Spoke with Officer Piter at [facility] police department. Discussed the above situation. Officer Piter agrees to allow pt's car to remain on hospital property until SNF stay is complete. [facility] provided officer Piter with pt's name, phone number, name of SNF, license plate number, color and make of vehicle (L2), and written reason for the request. Officer Piter will forward this information to fellow officers and security guards at [facility] police at [place]. Update provided to [facility]. The home health care social worker at the SNF will arrange transportation for pt to come back to [facility] to forklift picker his car once SNF stay is [...] is for pt to be discharged to [facility] tomorrow (01/27) at 11:00am via ambulance (Trip #: [id number]). SW will confirm discharge with facility tomorrow morning. PAS/determination results in pt's chart. SW will continue to follow. SIGNATURE: AMERICA Lopez, CLEAT BLANKER PATIENT NAME: José Manuel Ashton DATE: January 26, 2022 TIME: 4:[address] [facility] CBC panel Auto (Bld)on 01-26 Erythrocyte distribution width (RBC) [Ratio] 13.0 % Normal 11.5-15.0 [facility] Comment on above: Order Comment: Speci men Type: BLOOD SPECIMEN [facility] Address: [address] [place] [address] Performed By: #### 5 8410-2 #### [facility] CLIA [id number] ATTN [address] [place] Hematocrit (Bld) [Volume fraction] 43.5 % Normal 39.0-51.0 [facility] Comment on above: Order Comment: Speci men Type: BLOOD SPECIMEN [facility] Address: [address] [place] [phone] Performed By: #### 5 8410-2 #### [facility] CLIA [id number] [address] [place] [address] [place] Hemoglobin (Bld) [Mass/Vol] 14.1 g/dL Normal 13.0-17.0 [facility] Comment on above: Order Comment: Speci men Type: BLOOD SPECIMEN [facility] Address: [address] [place] [address] Performed By: #### 5 8410-2 #### [facility] [place] [id number] [address] [place] [address] [place] MCH (RBC) [Entitic mass] 29.0 pg Normal 26.0-34.0 [facility] Comment on above: Order Comment: Speci men Type: BLOOD SPECIMEN [facility] Address: [address] [place] [address] Performed By: #### 5 8410-2 #### [facility] [place] [id number] [address] [place] [address] MCHC (RBC) [Mass/Vol] 32.4 g/dL Normal 30.5-36.0 [facility] Comment on above: Order Comment: Speci men Type: BLOOD SPECIMEN [facility] Address: [address] [place] [address] Performed By: #### 5 8410-2 #### [facility] [place] [id number] [address] [place] [address] [place] MCV (RBC) [Entitic vol] 89.5 fL Normal 80.0-100.0 [facility] Comment on above: Order Comment: Speci men Type: BLOOD SPECIMEN [facility] Address: [address] [place] [address] Performed By: #### 5 8410-2 #### [facility] [place] [id number] [address] [place] [address] [place] Nucleated RBC (Bld) [#/Vol] 10*3/uL Normal <0.01 [facility] Comment on above: Order Comment: Speci men Type: BLOOD SPECIMEN [facility] Address: [address] [place], [place] [address] Performed By: #### 5 8410-2 #### [facility] CLIA [id number] [address] [place], [place] [address] [place] Platelet mean volume (Bld) [Entitic vol] 9.3 fL Normal 9.0-12.7 [facility] Comment on above: Order Comment: Speci men Type: BLOOD SPECIMEN [facility] Address: [address] [place], [place] [address] Performed By: #### 5 8410-2 #### [facility] [place] [id number] [address] [place] [address] [place] Platelets (Bld) [#/Vol] 278 10*3/uL Normal 150-400 [facility] Comment on above: Order Comment: Speci men Type: BLOOD SPECIMEN [facility] Address: [address] [place], [place] [address] Performed By: #### 5 8410-2 #### [facility] [place] [id number] [address] [place], [place] [address] [place] RBC (Bld) [#/Vol] 4.86 10*6/uL Normal 4.20-6.00 [facility] Comment on above: Order Comment: Speci men Type: BLOOD SPECIMEN [facility] Address: [address] [place], [place] [address] Performed By: #### 5 8410-2 #### [facility] CLIA [id number] [address] [place], [place] [address] [place] WBC (Bld) [#/Vol] 5.07 10*3/uL Normal 3.70-11.00 [facility] Comment on above: Order Comment: Speci men Type: BLOOD SPECIMEN [facility] Address: [address] [place], [place] [address] Performed By: #### 5 8410-2 #### [facility] CLIA [id number] [address] [place], [place] [address] [facility] CRP SerPl-mCncon 01-26-2022 CRP [Mass/Vol] 0.3 mg/dL Normal <0.9 [facility] Comment on above: Order Comment: Speci men Type: BLOOD SPECIMENOrdering Facility: [facility] Address: [address] [place] [address] Performed By: #### 1 9123-9, 13718-7, 1987-08, ####[facility] LABORATORYCLIA [id number] [place] [address] [facility] Magnesium SerPl-mCncon 01-26 Magnesium [Mass/Vol] 1.8 mg/dL Normal 1.7-2.3 [facility] Comment on above: Order Comment: Speci men Type: BLOOD SPECIMENOrdering Facility: [facility] Address: [address] [place] [address] Performed By: #### 1 9123-9, 65293-9, 1987-08, ####[facility] LABORATORYCLIA [id number] [place] [address] [place] NURSING PROGon 01-26-2022 NURSING PROG HNO ID: [id number] Author: Mulu Sosa, LEATHA Service: ? Author [...] H2O. Pt slept estimated 6-[address] [facility] NURSING PROG HNO ID: [id number] Author: Huong Glass RN Service: Nursing Author Type: Counselor Type: Nursing Progress Note Filed: 01/26/2022 7:19 PM Note Text: [id number] Assumed care of pt awake in room. [...] AC AND HS. Safety precautions maintained. Normal [facility] Procalcitonin SerPl-mCncon 1 Procalcitonin [Mass/Vol] ng/mL Normal <0.09 [facility] Comment on above: Order Comment: Speci men Type: BLOOD SPECIMENOrdering Facility: [facility] Address: [address] [place] [address] [place] [address] Result Comment: For a guided interpretation of test results, please visit the Change in Procalcitonin Calculator, [email or web address]. Performed By: #### 1 9123-9, 14584-9, 1988-5, 24773-5 ####[facility] LABORATORYCLIA [id number] [address] [place] XR CHEST 1V [...] Stable exam with no acute radiographic abnormality. Staff Assistant: PSCB Transcribe Date/Time: Jan 26 2022 11:07A Dictated by : INA DONOVAN DO This examination was interpreted and the report reviewed and electronically signed by: INA DONOVAN DO on Jan 26 2022 11:12AM EST [id number] [facility] CASE MANAGEMon 01-25-2022 CASE MANAGEM HNO ID: [id number] Author: OSCAR Lopez Service: Social Work Author Type: Jogger Operator Type: Care Mgt Progress Note Filed: 01/25/2022 4:45 PM Note Text: BEHAVIORAL HEALTH SOCIAL WORK PROGRESS NOTE SERVICE DATE: 01/25/2022 SERVICE TIME: 4:31 PM Received PAS/determination results. Copy placed in pt's chart. Pt spoke with veterans service representative from [facility] over the phone this afternoon. SW spoke with admissions. Facility will provide decision on acceptance by either 5pm today or early tomorrow morning. Pt tentatively scheduled for discharge tomorrow (01/26) at 2:00pm via ambulance (trip #: [id number]). SW will continue to follow. SIGNATURE: AMERICA Lopez LSW PATIENT NAME: José Manuel Ashton DATE: January 25, 2022 TIME: 4:31 PM [facility] CASE MANAGEM HNO ID: [id number] Author: OSCAR Lopez Service: Social Work Author Type: Jogger Operator Type: Care Mgt Progress Note Filed: 01/25/2022 3:52 PM Note Text: BEHAVIORAL HEALTH SOCIAL WORK PROGRESS NOTE SERVICE DATE: 01/25/2022 SERVICE TIME: 10:41 AM [facility] on unit to complete assessment with pt for PAS/RR. Pt is currently linked with an outpatient psychiatrist (Dr. Inez Leon) at [facility]. Psych follow-up appointment scheduled. SW met with pt this afternoon to discuss facilities. Pt [facility] by [facility]. Awaiting response from [facility]. Pt's [facility] choice is [facility], and 2nd choice is [facility]. Tentative discharge tomorrow or pending facility acceptance/selection and PAS results. Pt will likely need a COVID test prior to discharge. SW will continue to follow. SIGNATURE: Neela Johnson MSW, CLEAT BLANKER PATIENT NAME: José Manuel Ashton DATE: January 25, 2022 TIME: 10:41 AM [facility] CONSULT PROGon 01-25-2022 CONSULT PROG HNO ID: [id number] Author: Collni Cheema DO Service: Endocrinology Author Type: Physician [...] ER) 500 mg ORAL DAILY Miriam Jennings APRN.ACCELERATOR TECHNICIAN 500 mg at 01/24/22 0912 venlafaxine ER 75 mg cap(s) (EFFEXOR XR) 75 mg ORAL DAILY WITH BREAKFAST Miriam Jennings APRN.ACCELERATOR TECHNICIAN 75 mg at 01/24/22 0916 haloperidol 5 [...] 30 mL ORAL DAILY PRN Teresa Diego APRN.ACCELERATOR TECHNICIAN acetaminophen 650 mg tab(s) (TYLENOL) 650 mg ORAL q 6 H PRN Teresa Diego APRN.ACCELERATOR TECHNICIAN insulin lispro injection (rapid acting) (ADMELOG) SUBCUTANEOUS AT BEDTIME Teresa Diego APRN.ACCELERATOR TECHNICIAN 1 Units at 01/24/22 2100 lisinopril 20 mg tab(s) (ZESTRIL, PRINIVIL) 20 mg ORAL DAILY Teresa Diego, HEALTH PLAN SPECIALIST.ACCELERATOR TECHNICIAN 20 mg at 01/24/22 0913 insulin lispro injection (rapid acting) (ADMELOG) SUBCUTANEOUS w MEALS Teresa Diego APRN.ACCELERATOR TECHNICIAN 3 Units at 01/24/22 1709 pioglitazone (ACTOS) tab(s) 45 mg 45 mg ORAL DAILY Teresa Diego, HEALTH PLAN SPECIALIST.ACCELERATOR TECHNICIAN 45 mg at 01/24/22 0912 docusate sodium 100 mg cap(s) (COLACE) 100 mg ORAL BID Teresa Diego APRN.ACCELERATOR TECHNICIAN 100 mg at 01/24/22 2100 polyethylene glycol 3350 17 g packet (MIRALAX, GLYCOLAX) 17 g ORAL DAILY Teresa Diego APRN.ACCELERATOR TECHNICIAN 17 g at 01/24/22 0912 insulin glargine 33 Units pen (long acting) (LANTUS SOLOSTAR, BASAGLAR KWIKPEN) 33 Units SUBCUTANEOUS AT BEDTIME Teresa Diego APRN.ACCELERATOR TECHNICIAN 33 Units at 01/24/222099 melatonin 3 mg [...] January 25, 2022 8:42 AM PAGER: [phone] [facility] Comprehensive metabolic 2000 panelon 01-25-2022 Albumin [Mass/Vol] 3.5 g/dL Low 3.9-4.9 [facility] Comment on above: Order Comment: Speci men Type: BLOOD SPECIMEN [facility] Address: [address] [place] [address] Performed By: #### 5 8410-2 #### [facility] CLIA [id number] [address] [place], [place] [address] [place] ALP [Catalytic activity/Vol] 109 U/L Normal 38-113 [facility] Comment on above: Order Comment: Speci men Type: BLOOD SPECIMEN [facility] Address: [address] [place] [address] Performed By: #### 5 8410-2 #### [facility] CLIA [id number] [address] [place], [place] [address] [place] ALT [Catalytic activity/Vol] 12 U/L Normal 10-54 [facility] Comment on above: Order Comment: Speci men Type: BLOOD SPECIMEN [facility] Address: [address] [place], [place] [address] Performed By: #### 5 8410-2 #### [facility] CLIA [id number] [address] [place] [id number] [place] Anion gap [Moles/Vol] 13 mmol/L Normal 9-18 [facility] Comment on above: Order Comment: Speci men Type: BLOOD SPECIMEN [facility] Address: [address] [place] [address] Performed By: #### 5 8410-2 #### [facility] CLIA [id number] [address] [place], [place] [address] [place] AST [Catalytic activity/Vol] 16 U/L Normal 14-40 [facility] Comment on above: Order Comment: Speci men Type: BLOOD SPECIMEN [facility] Address: [address] [place], [place] [address] Performed By: #### 5 8410-2 #### [facility] CLIA [id number] [facility] [place] [address] [place] Bilirubin [Mass/Vol] 0.2 mg/dL Normal 0.2-1.3 [facility] Comment on above: Order Comment: Speci men Type: BLOOD SPECIMEN [facility] Address: [address] [place] [address] Performed By: #### 5 8410-2 #### [facility] CLIA [id number] [address] [place] [address] [place] Calcium [Mass/Vol] 9.3 mg/dL Normal 8.5-10.2 [facility] Comment on above: Order Comment: Speci men Type: BLOOD SPECIMEN [facility] Address: [address] [place], [place] [address] Performed By: #### 5 8410-2 #### [facility] CLIA [id number] [facility] [place] [address] [place] Chloride [Moles/Vol] 100 mmol/L Normal 97-105 [facility] Comment on above: Order Comment: Speci men Type: BLOOD SPECIMEN [facility] Address: [address] [place], [place] [address] Performed By: #### 5 8410-2 #### [facility] CLIA [id number] [address] [place], [place] [address] [place] CO2 [Moles/Vol] 27 mmol/L Normal 22-30 [facility] Comment on above: Order Comment: Speci men Type: BLOOD SPECIMEN [facility] Address: [address] [place], [place] [address] Performed By: #### 5 8410-2 #### [facility] CLIA [id number] [address] [place], [place] [address] [place] [facility] Creatinine [Mass/Vol] 1.20 mg/dL Normal 0.73-1.22 [facility] Comment on above: Order Comment: Specjonas vaughan Type: BLOOD SPECIMEN [facility] Address: [facility] [address] Performed By: #### 5 8410-2 #### [id number] [address] [place] [address] [place] ESTIMATED GLOMERULAR FILTRATION RATE 68 mL/min/1.73m??? Normal >=60 [facility] Comment on above: Order Comment: Luz vaughan Type: BLOOD SPECIMEN [facility] Address: [address] [place] [address] Result Comment: Breanne mated Glomerular Filtration Rate [...] GFR. Performed By: #### 5 8410-2 #### [facility] [place] [id number] [address] [place], [place] [address] [place] Glucose [Mass/Vol] 136 mg/dL High 74-99 [facility] Comment on above: Order Comment: Luz clement Type: BLOOD SPECIMEN [facility] Address: [address] [place], [place] [address] Result Comment: The [place] Diabetes Association (ADA) provides guidance for cutoff [...] Standards of Medical Care in Diabetes 2016, [place] Diabetes Association. Diabetes Care. 2016.39(Suppl 1). Performed By: #### 5 8410-2 #### [facility] CLIA [id number] [address] [place] [address] [place] Potassium [Moles/Vol] 4.8 mmol/L Normal 3.7-5.1 [facility] Comment on above: Order Comment: Speci men Type: BLOOD SPECIMEN [facility] Address: [address] [place] [address] Performed By: #### 5 8410-2 #### [facility] [place] [id number] [address] [place] [address] [place] Protein [Mass/Vol] 6.4 g/dL Normal 6.3-8.0 [facility] Comment on above: Order Comment: Speci men Type: BLOOD SPECIMEN [facility] Address: [address] [place] [address] Performed By: #### 5 8410-2 #### [facility] [place] [id number] [address] [place] [address] [place] Sodium [Moles/Vol] 140 mmol/L Normal 136-144 [facility] Comment on above: Order Comment: Speci men Type: BLOOD SPECIMEN [facility] Address: [address] [place] [address] Performed By: #### 5 8410-2 #### [facility] CLIA [id number] [address] [place] [address] [place] Urea nitrogen [Mass/Vol] 26 mg/dL High 9-24 [facility] Comment on above: Order Comment: Speci men Type: BLOOD SPECIMEN [facility] Address: [address] [place] [address] Performed By: #### 5 8410-2 #### [facility] CLIA [id number] [address] [place], [place] [address] [facility] NURSING PROGon 01-25-2022 NURSING PROG HNO ID: [id number] Author: Leslie Pa RN Service: Nursing Author Type: Registered Nurse Type: Nursing Progress Note Filed: 01/25/2022 6:55 PM Note Text: Nursing Progress Note Topic of Note: Daily Note José Manuel Ashton [id number] Assumed care of patient. Patient is awake, [...] This note was completed by: Leslie Pa [facility] SARS-CoV-2 RNA Resp Ql BETO+p robeon 01-25-2022 SARS-CoV-2 (COVID-19) RNA BETO+probe Ql (Resp) COVID 19 RESULT: SARS-CoV-2 (Agent of COVID-19) Not Detected by RT-PCR or equivalent method. This test has been authorized by FDA under an Emergency Use Authorization (EUA). [facility] Comment on above: Performed By: #### 9 4500-6 ####[facility] [id number] [place] [address] [facility] CASE MANAGEMon 01-24-2022 CASE MANAGEM HNO ID: [id number] Author: Neela Elizabeth, CLEAT BLANKER Service: Social Work Author Type: Jogger Operator Type: Care Mgt Progress Note Filed: 01/24/2022 4:08 PM Note Text: BEHAVIORAL HEALTH SOCIAL WORK PROGRESS NOTE SERVICE DATE: 01/24/2022 SERVICE TIME: 3:44 PM SW [facility] plans. Pt has a history of noncompliance with medications and appointments. Discussed options of short term SNF stay for rehab and home with home care. Initially, pt states I don't want to go to a long term in [place]. I want to go to that place at [facility] (meaning [facility] acute rehab).. Informed pt he does [...] going to SNF. Pt agreed for this repairer typewriter to begin referral process, and is hopeful to go to a SNF near [facility]. Pt is agreeable to being linked with a psychiatrist in [facility] a well. Submitted PAS via [facility]. Awaiting PAS/determination results. Referrals sent to multiple facilities near [facility]. Awaiting acceptance. Tentative discharge by middle to end of this week pending further stabilization, PAS results, and facility acceptance/selection. SW will need to link pt with a psychiatrist. SW will continue to follow. SIGNATURE: AMERICA Lopez, CLEAT BLANKER PATIENT NAME: José Manuel Ashton DATE: January 24, 2022 TIME: 3:44 PM [facility] CONSULT PROGon 01-24-2022 CONSULT PROG HNO ID: [id number] Author: Collin Cheema DO Service: Endocrinology Author [...] ER) 500 mg ORAL DAILY Miriam Jennings APRN.ACCELERATOR TECHNICIAN 500 mg at 01/23/22 0859 venlafaxine ER 75 mg cap(s) (EFFEXOR XR) 75 mg ORAL DAILY WITH BREAKFAST Miriam Jennings APRN.ACCELERATOR TECHNICIAN haloperidol 5 mg tab(s) (HALDOL) 5 mg [...] 30 mL ORAL DAILY PRN Teresa Diego APRN.ACCELERATOR TECHNICIAN acetaminophen 650 mg tab(s) (TYLENOL) 650 mg ORAL q 6 H PRN Teresa Diego APRN.ACCELERATOR TECHNICIAN insulin lispro injection (rapid acting) (ADMELOG) SUBCUTANEOUS AT BEDTIME Teresa Diego APRN.ACCELERATOR TECHNICIAN 1 Units at 01/23/222044 lisinopril 20 mg tab(s) (ZESTRIL, PRINIVIL) 20 mg ORAL DAILY Teresa Diego, HEALTH PLAN SPECIALIST.ACCELERATOR TECHNICIAN 20 mg at 01/23/22 0859 insulin lispro injection (rapid acting) (ADMELOG) SUBCUTANEOUS w MEALS Teresa Diego APRN.ACCELERATOR TECHNICIAN 9 Units at 01/23/22 165 pioglitazone (ACTOS) tab(s) 45 mg 45 mg ORAL DAILY Teresa Diego, HEALTH PLAN SPECIALIST.ACCELERATOR TECHNICIAN 45 mg at 01/23/22 0859 docusate sodium 100 mg cap(s) (COLACE) 100 mg ORAL BID Teresa Diego, HEALTH PLAN SPECIALIST.ACCELERATOR TECHNICIAN 100 mg at 01/23/222042 polyethylene glycol 3350 17 g packet (MIRALAX, GLYCOLAX) 17 g ORAL DAILY Teresa Diego, HEALTH PLAN SPECIALIST.ACCELERATOR TECHNICIAN 17 g at 01/23/22 08 insulin glargine 33 Units pen (long acting) (LANTUS SOLOSTAR, BASAGLAR KWIKPEN) 33 Units SUBCUTANEOUS AT BEDTIME Teresa Diego, HEALTH PLAN SPECIALIST.ACCELERATOR TECHNICIAN 33 Units at 01/23/222044 melatonin 3 mg [...] January 24, 2022 8:42 AM PAGER: [phone] [facility] NURSING PROGon 01-24-2022 NURSING PROG HNO ID: [id number] Author: Leslie Pa RN Service: Nursing Author Type: Registered Nurse Type: Nursing Progress Note Filed: 01/24/2022 6:36 PM Note Text: Nursing Progress Note Topic of Note: Daily Note José Manuel Ashton [id number] Assumed care of patient. Patient is awake, [...] 127. This note was completed by: Leslie [facility] THERAPY NTon 01-24-2022 THERAPY NT HNO ID: [id number] Author: Ester Ball, Student Service: Occupational Therapy [...] I don't want to go to a long term or receive home OT services because it [...] a 61 year old male referred by [facility] for depression. Per Psych consult 01/19/2022 by [...] and care. Patient is agreeable. Per ED derrick worker Roxanne MOORE on 01/17 This repairer typewriter assessed patient via face to face who presents alert and oriented x 4, appears overweight and disheveled, speech is within normal limits appropriate to tone, prosody, melody, phonetic, and syntax, thought process is linear and organized, difficulty concentrating at times, and a poor historian,, mood is depressed with flat affect, with impaired judgement and insight into illness. Patient reports that his Fish Drier sent him to the emergency room for [...] have too many things going on?. This repairer typewriter inquires if patient believ (more content not included)... Normal [facility] ALBUMIN/CREAT RATIO RND URon 01-23-2022 Albumin DL <= 20 mg/L (U) [Mass/Vol] 1334.3 mg/L Normal [facility] Comment on above: Order Comment: Specjonas men Type: BLOOD SPECIMEN [facility] Address: [address] [place] [address] Performed By: #### 5 8410-2 #### [facility] [place] [id number] [address] [place] [address] Albumin/Creatinine (U) [Mass ratio] 1438 mg/g High <30 [facility] Comment on above: Order Comment: Luz vaughan Type: BLOOD SPECIMEN [facility] Address: [address] [place] [address] Result Comment: Adul t Male and Female Nephrotic Criteria: <30 mg/g is considered normal to mildly increased 30-300 mg/g is considered moderately increased >300 mg/g is considered severely increased KDIGO. (2013). KDIGO 2012 Clinical Practice Guideline for the Evaluation and Management of Chronic Kidney Disease. Official Journal of the International Society of Nephrology, 3(1), 1-150. Performed By: #### 5 8410-2 #### [facility] CLIA [id number] [address] [place] [address] [place] Creatinine (U) [Mass/Vol] 92.8 mg/dL Normal 20.0-300.0 [facility] Comment on above: Order Comment: Speci men Type: BLOOD SPECIMEN [facility] Address: [address] [place] [address] Performed By: #### 5 8410-2 #### [facility] CLIA [id number] [address] [place] [id number] [facility] CONSULTon 01-23-2022 CONSULT HNO ID: [id number] Author: Collin Cheema DO Service: Hospital Medicine [...] not recall if he follows with the host/hostess head or not. The patient does report significant [...] quittin.8 Smokeless tobacco: Never Tobacco comments: Smokes [place] Vaping Use Vaping Use: Never used Substance [...] time a week.Disp: 4 EachRfl: 1 Insulin [place], Disposable, (COMFORT EZ PEN NEEDLES) 29 gauge x 1/21 Each once daily.Disp: 100 EachRfl: 3 blood sugar diagnostic (BLOOD GLUCOSE TEST) test fljsi2g/dayDisp: 100 StripRfl: 11 Blood-Glucose Meter monitoring kitFor monitoring sugars 3x/day (patient on insulin)Disp: 1 EachRfl: 1 Lancets lancetsUse as instructed 3x/dayDisp: 100 EachRfl: 11 alcohol swabs (ALCOHOL PREP PADS)Apply 1 application to affected area as directed.Disp: 100 EachRfl: 3 Penicillins Physical Exam BP 132/75 Pulse 80 Temp 36.6 ?C (97.9 ?F) (Oral) Resp (more content not included)... [facility] NURSING PROGon 01-23-2022 NURSING PROG HNO ID: [id number] Author: Huong Black RN Service: Nursing Author [...] Emotional support provided via 1:1. Accu-check before noeqcc=151--6 units Lispro insulin given per sliding scale. C/o lower abdominal discomfort and back pain--declined offerings of Tylenol--Nothing helps. Is calm--sitting in common area @ present time. Q15min safety rds continue. 2234--Compliant with HS meds--took 'whole' with water. Accu-check this WF=581; received 1 unit Lispro insulin per sliding [...] Bed alarm on. Q15min safety rds continue. [facility] NURSING PROG HNO ID: [id number] Author: Sloane Lanza RN Service: Behavioral Health [...] ambulate the unit with a wheeled chair. [facility] NURSING PROG HNO ID: [id number] Author: Tanya Valdez RN Service: Nursing Author Type: Registered Nurse Type: Nursing Progress Note Filed: 01/23/2022 6:17 AM Note Text: Nursing Progress Note Patient Name: José Manuel Ashton Patient [facility]: [facility]/UB-[id number]-02 Daily Note: Assumed care of pt at [...] This note was completed by: Tanya Valdez [facility] ALLIED HEALTHon 01-22-2022 ALLIED HEALTH HNO ID: [id number] Author: Art Gordon Music Mary Service: Music [...] DATE: January 22, 2022 TIME: 1:11 PM [facility] CONSULTon 01-22-2022 CONSULT HNO ID: [id number] Author: Corky Rodarte MD Service: Urology Author Type: Physician Type: Consults Filed: 01/22/2022 5:58 PM Note Text: [facility] - Consultation JOSÉ MANUEL ASHTON : 1960 AGE: 61 SEX: M [facility]: [id number] [facility]: [facility] LOCATION: 6002 ATTENDING PHYSICIAN: Luis Carlos Short Jr., M.D. DATE OF SERVICE: 01/22/2022 TIME OF SERVICE: 11:09 AM CONSULTING PHYSICIAN: Corky Rodarte M.D. REQUESTING PHYSICIAN: 1. Luis Carlos Short Jr., M.D. 2. Dr. Olivas. REASON FOR THE CONSULTATION: BPH with lower urinary tract symptoms. BRIEF CLINICAL SUMMARY: This 61-year-old man is admitted to [facility] emergently on 01/18/2022 because of psychiatric [...] surgery or a need for an indwelling Brigth for retention of urine. PAST MEDICAL HISTORY: [...] gentleman in consultation. Corky Rodarte M.D. Urology JL:[id number] /[id number] Normal [facility] Comprehensive metabolic 2000 panelon 01-22-2022 Albumin [Mass/Vol] 3.2 g/dL Low 3.9-4.9 [facility] Comment on above: Order Comment: Speci men Type: BLOOD SPECIMENOrdering Facility: [facility] Address: [address] [place] [address] Performed By: #### 2 4323-8 ####[facility] [id number] [address] OF [facility] ALP [Catalytic activity/Vol] 103 U/L Normal 38-113 [facility] Comment on above: Order Comment: Speci men Type: BLOOD SPECIMENOrdering Facility: [facility] Address: [address] [place] [address] Performed By: #### 2 4323-8 ####[facility] [id number] [address] [place] ALT [Catalytic activity/Vol] 9 U/L Low 10-54 [facility] Comment on above: Order Comment: Speci men Type: BLOOD SPECIMENOrdering Facility: [facility] Address: [address] [place], [place] [address] Performed By: #### 2 4323-8 ####[facility] [id number] [place] [address] [place] Anion gap [Moles/Vol] 10 mmol/L Normal 9-18 [facility] Comment on above: Order Comment: Speci men Type: BLOOD SPECIMENOrdering Facility: [facility] Address: [address] [place] [address] Performed By: #### 2 4323-8 ####[facility] [id number] [address] [place], [place] [address] [place] AST [Catalytic activity/Vol] 10 U/L Low 14-40 [facility] Comment on above: Order Comment: Speci men Type: BLOOD SPECIMENOrdering Facility: [facility] Address: [address] [place] [address] Performed By: #### 2 4323-8 ####[facility] [id number] [place] [address] [place] Bilirubin [Mass/Vol] 0.2 mg/dL Normal 0.2-1.3 [facility] Comment on above: Order Comment: Speci men Type: BLOOD SPECIMENOrdering Facility: [facility] Address: [address] [place], [place] [address] Performed By: #### 2 4323-8 ####[facility] [id number] [place] [address] [place] Calcium [Mass/Vol] 9.2 mg/dL Normal 8.5-10.2 [facility] Comment on above: Order Comment: Speci men Type: BLOOD SPECIMENOrdering Facility: [facility] Address: [address] [place], [place] [address] Performed By: #### 2 4323-8 ####[facility] [id number] [place] [address] [facility] OF [place] Chloride [Moles/Vol] 104 mmol/L Normal 97-105 [facility] Comment on above: Order Comment: Speci men Type: BLOOD SPECIMENOrdering Facility: [facility] Address: [address] [place] [address] Performed By: #### 2 4323-8 ####[facility]IA [id number] [place] [address] [place] CO2 [Moles/Vol] 26 mmol/L Normal 22-30 [facility] Comment on above: Order Comment: Speci men Type: BLOOD SPECIMENOrdering Facility: [facility] Address: [address] [place] [address] Performed By: #### 2 4323-8 ####[facility] [id number] [address] [place] Creatinine [Mass/Vol] 1.26 mg/dL High 0.73-1.22 [facility] Comment on above: Order Comment: Speci men Type: BLOOD SPECIMENOrdering Facility: [facility] Address: [address] [place] [address] Performed By: #### 2 4323-8 ####[facility]IA [id number] [address] ESTIMATED GLOMERULAR FILTRATION RATE 64 mL/min/1.73m??? Normal >=60 [facility] Comment on above: Order Comment: Speci men Type: BLOOD SPECIMENOrdering Facility: [facility] Address: [address] [place] [address] Result Comment: Breanne mated Glomerular Filtration Rate [...] actual GFR. Performed By: #### 2 4323-8 ####[facility]IA [id number] [place] [address] [place] Glucose [Mass/Vol] 141 mg/dL High 74-99 [facility] Comment on above: Order Comment: Speci men Type: BLOOD SPECIMENOrdering Facility: [facility] Address: [address] [place] [address] Result Comment: The [place] Diabetes Association (ADA) provides guidance for cutoff [...] Standards of Medical Care in Diabetes 2016, [place] Diabetes Association. Diabetes Care. 2016.39(Suppl 1). Performed By: #### 2 4323-8 ####[facility]IA [id number] [place] [address] [place] Potassium [Moles/Vol] 4.2 mmol/L Normal 3.7-5.1 [facility] Comment on above: Order Comment: Speci men Type: BLOOD SPECIMENOrdering Facility: [facility] Address: [address] [place] [address] Performed By: #### 2 4323-8 ####[facility]IA [id number] [place] [address] [place] Protein [Mass/Vol] 5.7 g/dL Low 6.3-8.0 [facility] Comment on above: Order Comment: Speci men Type: BLOOD SPECIMENOrdering Facility: [facility] Address: [address] [place] [address] Performed By: #### 2 4323-8 ####[facility]IA [id number] [address] Sodium [Moles/Vol] 140 mmol/L Normal 136-144 [facility] Comment on above: Order Comment: Speci men Type: BLOOD SPECIMENOrdering Facility: [facility] Address: [address] [place] [address] Performed By: #### 2 4323-8 ####[facility]CLIA [id number] [address] Urea nitrogen [Mass/Vol] 22 mg/dL Normal 9-24 [facility] Comment on above: Order Comment: Speci men Type: BLOOD SPECIMENOrdering Facility: [facility] Address: [address] [place] [address] Performed By: #### 2 4323-8 ####[facility]CLIA [id number] [address] NURSING PROGon 01-22-2022 NURSING PROG HNO ID: [id number] Author: Myrna Rowland RN Service: ? Author Type: Registered Nurse Type: Nursing Progress Note Filed: 01/22/2022 7:05 PM Note Text: Nursing Progress Note Patient Name: José Manuel Ashton Patient Location: [address]- Daily Note: 0700 - Assumed care [...] This note was completed by: Myrna Rowland [facility] NURSING PROG HNO ID: [id number] Author: Natasha Levine RN Service: Nursing Author Type: Registered Nurse Type: Nursing Progress Note Filed: 01/22/2022 6:48 AM Note Text: Nursing Progress Note Patient Name: José Manuel Ashton Patient Location: [address]/RH-[id number]-305K- Daily Note: [phone] A/O x 3 and out in common [...] This note was completed by: Natasha Levine [facility] Bacteria Ur Culton 2 Bacteria identified Cx Nom (U) ORGANISM ID: 1 <10,000 CFU/ml Mixed microbiota No further workup. Mixed microbiota can be due to???urine???contamination with skin bacteria at time of collection or presence of a long-term urinary catheter. If a new culture is needed, please consider re-education of the patient on proper midstream collection technique or straight catheterization for???urine???collection. [facility] Comment on above: Performed By: #### 6 30-4 ####[facility] LABCLIA [id number] [place] [address] [place] CASE MGT INIT ASSESon 2021 CASE MGT INIT SANDOVAL HNO ID: [id number] Author: OSCAR Lopez Service: Social Work Author Type: Jogger Operator Type: Care Mgt Initial Assessment Filed: 01/21/2022 11:16 AM Note Text: BEHAVIORAL HEALTH SOCIAL WORK/CARE MANAGEMENT ASSESSMENT AND DISCHARGE PLAN SERVICE DATE: 01/21/2022 SERVICE TIME: 9:14 AM Reason for Admission: Per intake note on 01/19/2022: Nature of the crisis: depression leading to medication noncompliance Presenting Problem: José Manuel Ashton is a 61 year old male referred [facility]. Per Psych consult [...] and care. Patient is agreeable. Per ED derrick worker Roxanne MOORE on 01/17 This repairer typewriter assessed patient via face to face who presents alert and oriented x 4, appears overweight and disheveled, speech is within normal limits appropriate to tone, prosody, melody, phonetic, and syntax, thought process is linear and organized, difficulty concentrating at times, and a poor historian,, mood is depressed with flat affect, with impaired judgement and insight into illness. Patient reports that his Fish Drier sent him to the emergency room for [...] have too many things going on?. This repairer typewriter inquires if patient believes he will get [...] that he has been forced to a long term in the past for not caring for himself. This repairer typewriter discussed with patient potential for a [facility] nurse to come into home to assist with his medication management to ensure he is caring for self properly and taking medications. Patient has been calm and cooperative in the ED with no restraints or medications administered. Legal Status: Voluntary Important Contacts: Meche Sanders (sister) [phone] Marek Ashton (Brother) [phone] Does the patient/veterans service representative consent to contact with the [...] Manuel Ashton was born and raised in [place], [place] by his mother and father. Pt is the youngest of 17 children. 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 Support System: L (more content not included)... [facility] CONSULTon 01-21-2022 CONSULT HNO ID: [id number] Author: Philip Mayfield DPM Service: Podiatry Author [...] quittin.8 Smokeless tobacco: Never Tobacco comments: Smokes [place] Vaping Use Vaping Use: Never used Substance [...] 4 Each, Rfl: 1, Not Taking Insulin Bulls [place], Disposable, (COMFORT EZ PEN NEEDLES) 29 gauge [...] docusate sodiu (more content not included)... Normal [facility] HAV IgM Ser Qlon 01-21-2022 HAV IgM Ql (S) Negative Normal Negative [facility] Comment on above: Order Comment: Speci men Type: BLOOD SPECIMEN [facility] Address: [address] [place] [address] Result Comment: No e vidence of recent infection with Hepatitis A virus. Performed By: #### 5 8410-2 #### [facility] CLIA [id number] [address] [place] [address] [facility] HBV core IgM Ser Qlon 2021 HBV core IgM Ql (S) Negative Normal Negative [facility] Comment on above: Order Comment: Speci men Type: BLOOD SPECIMEN [facility] Address: [address] [place] [address] Result Comment: No e vidence of recent infection with Hepatitis B virus. Should recent infection be suspected, repeat testing may be considered 3-4 weeks after this draw. Performed By: #### 5 8410-2 #### [facility] CLIA [id number] [address] [place] [address] HBV surface Ab IA Ql (S)on 1 HBV surface Ag Ql (S) Negative Normal Negative [facility] Comment on above: Order Comment: Speci [facility] Type: BLOOD SPECIMEN [facility] Address: [address] [place] [address] Performed By: #### 5 8410-2 #### [facility] CLIA [id number] [facility] [address] [place] HCV RNA SerPl BETO+probe-aCnc on 01-21-2022 HCV RNA BETO+probe Qn Not detected Normal HCV RNA not detected by PCR. [facility] Comment on above: Order Comment: [facility] Type: BLOOD SPECIMENOrdering Facility: [facility] Address: [address] [place] [address] Performed By: #### 1 1011-4 ####[facility] LABCLIA [id number] [facility] [id number] HISTORY PHYSICALon HISTORY PHYSICAL HNO ID: [id number] Author: Yarely Dejesus MD Service: Psychiatry Author [...] house, and outpatient follow up with educator, passenger conductor could be helpful. Luis Carlos Short Jr, MD January 21, 2022 2:05 PM -- [facility] Patient Name: José Manuel Ashotn Service Date: 01/20/2022 Service Time: 10:50 PM [...] and care. Patient is agreeable. Per ED derrick worker Roxanne MOORE on 01/17 This repairer typewriter assessed patient via face to face who presents alert and oriented x 4, appears overweight and disheveled, speech is within normal limits appropriate to tone, prosody, melody, phonetic, and syntax, thought process is linear and organized, difficulty concentrating at times, and a poor historian,, mood is depressed with flat affect, with impaired judgement and insight into illness. Patient reports that his Fish Drier sent him to the emergency room for [...] have too many things going on?. This repairer typewriter inquires if patient believes he will get [...] denies any ho (more content not included)... [facility] NURSING PROGon 01-21-2022 NURSING PROG HNO ID: [id number] Author: Huong Glass RN Service: Nursing Author Type: Counselor Type: Nursing Progress Note Filed: 01/21/2022 7:35 PM Note Text: [id number] Assumed care of pt sitting on edge [...] unsteady gait physical therapy consult in. This repairer typewriter provided pt with wheelchair and front wheeled walker. Medication compliant whole with water. Accu checks AC AND HS with sliding scale coverage. Continent of bowel and bladder set up for ADL's. Calm and cooperative with care, pleasant and social with peers. Participated in group activities. Security notified of personal vehicle in parking lot. Safety precautions maintained. [facility] Reagin and Treponema pallidu m IgG and IgM [Interp]on 01-21-2022 SYPHILIS INTERPRETATION Cannot exclude recent Treponemal infection if specimen collected within 7-10 days after appearance of suspect lesions or 2-3 weeks after an exposure. Clinical correlation is required. [facility] Comment on above: Order Comment: Speci men Type: BLOOD SPECIMEN [facility] Address: [address] [place] [address] Performed By: #### 5 8410-2 #### [facility] CLIA [id number] [address] [place] [address] OF [place] T. pallidum IgG+IgM IA Ql (S) Non-Reactive Normal Nonreactive [facility] Comment on above: Order Comment: Speci men Type: BLOOD SPECIMEN [facility] Address: [address] [place] [address] Performed By: #### 5 8410-2 #### [facility] CLIA [id number] [address] [facility] [place] [address] [facility] THERAPY NTon 01-21-2022 THERAPY NT HNO ID: [id number] Author: Prasanth Jeronimo, PT Service: Physical Therapy Author Type: Physical Therapist Type: Therapy (PT/OT/Speech/Resp) Filed: 01/21/2022 2:32 PM Note Text: Physical Therapy Evaluation SERVICE DATE: 01/21/2022 SERVICE TIME: 1341 to 1408 ROOM: [place] [address] Recommended Discharge Disposition: Subacute/SNF Recommended Discharge Disposition [...] emergency department at the direction of his applied exercise physiologist, Dr. Kennedy for psych eval Relevant Past [...] doing here? They sent me to the [facility] CURRENT FUNCTIONAL STATUS: Most recent performance Current [...] Patient /Caregiver Goal (more content not included)... [facility] URINALYSIS, REFLEX MICROSCOP ICon 01-21-2022 Bacteria LM.HPF (Urine sed) [#/Area] Rare Abnormal None Seen [facility] Comment on above: Order Comment: Speci men Type: URINE SPECIMENOrdering Facility: [facility] Address: [address] [place] [address] Performed By: #### L [id number] ####[facility] [id number] [address] [place], [place] [address] [place] Bilirubin Ql (U) Negative Normal Negative [facility] Comment on above: Order Comment: Speci men Type: URINE SPECIMENOrdering Facility: [facility] Address: [address] [place] [address] Performed By: #### L [id number] ####[facility] [id number] [address] [place] Clarity (Unsp spec) Clear Normal Clear [facility] Comment on above: Order Comment: Speci men Type: URINE SPECIMENOrdering Facility: [facility] Address: [address] [place] [address] Performed By: #### L [id number] ####[facility] [id number] [place] [address] [place] Color (U) Yellow Normal Yellow [facility] Comment on above: Order Comment: Speci men Type: URINE SPECIMENOrdering Facility: [facility] Address: [address] [place] [address] Performed By: #### L [id number] ####[facility] [id number] [place] [address] [place] Glucose Test strip (U) [Mass/Vol] 2+ Abnormal Negative [facility] Comment on above: Order Comment: Speci men Type: URINE SPECIMENOrdering Facility: [facility] Address: [address] [place] [address] Performed By: #### L [id number] ####[facility] [id number] [address] [place] [address] [place] [address] [place] Hemoglobin Ql (U) 1+ Abnormal Negative [facility] Comment on above: Order Comment: Speci men Type: URINE SPECIMENOrdering Facility: [facility] Address: [address] [place] [address] Performed By: #### L [id number] ####[facility] [id number] [address] [place], [place] [address] [place] Ketones Ql (U) Trace Abnormal Negative [facility] Comment on above: Order Comment: Speci men Type: URINE SPECIMENOrdering Facility: [facility] Address: [address] [place] [address] Performed By: #### L [id number] ####[facility] [id number] [address] [place], [place] [address] [place] Leukocyte esterase Test strip Ql (U) Negative Normal Negative [facility] Comment on above: Order Comment: Speci men Type: URINE SPECIMENOrdering Facility: [facility] Address: [address] [place] [address] Performed By: #### L [id number] ####[facility] [id number] [address] [place], [place] [address] [place] Nitrite Ql (U) Negative Normal Negative [facility] Comment on above: Order Comment: Speci men Type: URINE SPECIMENOrdering Facility: [facility] Address: [address] [place] [address] Performed By: #### L [id number] ####[facility]IA [id number] [address] [place], [place] [address] [place] pH (U) 5.5 [pH] Normal 5.0-8.0 [facility] Comment on above: Order Comment: Speci men Type: URINE SPECIMENOrdering Facility: [facility] Address: [address] [place] [address] Performed By: #### L [id number] ####[facility]IA [id number] [address] Protein (U) [Mass/Vol] Normal [facility] Comment on above: Order Comment: Speci men Type: URINE SPECIMENOrdering Facility: [facility] Address: [address] [place] [address] Result Comment: Visi ble blood causes falsely elevated results for analyte Protein. Due to this limitation, Protein will not be reported for patients whose urine contains visible blood. Performed By: #### L [id number] ####[facility]ORYCLIA [id number] [place] [address] [place] RBC LM.HPF (Urine sed) [#/Area] 0-3 /HPF Normal 0-3 /HPF [facility] Comment on above: Order Comment: Speci men Type: URINE SPECIMENOrdering Facility: [facility] Address: [address] [place] [address] Performed By: #### L [id number] ####[facility]IA [id number] [place] [address] [place] Specific gravity (U) [Rel density] >=1.030 High 1.005-1.030 [facility] Comment on above: Order Comment: Speci men Type: URINE SPECIMENOrdering Facility: [facility] Address: [address] [place], [place] [address] Performed By: #### L [id number] ####[facility]IA [id number] [place] [address] [place] Urobilinogen Ql (U) 0.2 EU/dL Normal 0.2-1.0 EU/dL [facility] Comment on above: Order Comment: Speci men Type: URINE SPECIMENOrdering Facility: [facility] Address: [address] [place] [address] Performed By: #### L [id number] ####[facility]IA [id number] [place] [address] [place] WBC LM.HPF (Urine sed) [#/Area] 0-5 /HPF Normal 0-5 /HPF [facility] Comment on above: Order Comment: Speci men Type: URINE SPECIMENOrdering Facility: [facility] Address: [address] [place] [address] Performed By: #### L [id number] ####[facility]CLIA [id number] [place] [address] [place] Basic metabolic 2000 panelon 01-20-2022 Anion gap [Moles/Vol] 8 mmol/L Low 9-18 [facility] Comment on above: Order Comment: Speci men Type: BLOOD SPECIMEN [facility] Address: [address] [place] [address] Performed By: #### 5 8410-2 #### [facility] [place] [id number] [address] [place] [address] [place] Calcium [Mass/Vol] 9.1 mg/dL Normal 8.5-10.2 [facility] Comment on above: Order Comment: Speci men Type: BLOOD SPECIMEN [facility] Address: [address] [place] [address] Performed By: #### 5 8410-2 #### [facility] CLIA [id number] [address] [place] [id number] [place] Chloride [Moles/Vol] 103 mmol/L Normal 97-105 [facility] Comment on above: Order Comment: Speci men Type: BLOOD SPECIMEN [facility] Address: [address] [place] [address] Performed By: #### 5 8410-2 #### [facility] CLIA [id number] [address] [place], [place] [address] [place] CO2 [Moles/Vol] 27 mmol/L Normal 22-30 [facility] Comment on above: Order Comment: Brooksjonas vaughan Type: BLOOD SPECIMEN [facility] Address: [address] [place] [address] Performed By: #### 5 8410-2 #### [facility] CLIA [id number] [address] [place], [place] [address] [place] Creatinine [Mass/Vol] 1.10 mg/dL Normal 0.73-1.22 [facility] Comment on above: Order Comment: Luz clement Type: BLOOD SPECIMEN [facility] Address: [address] [place] [address] Performed By: #### 5 8410-2 #### [facility] [id number] [facility] [place] [id number] [place] ESTIMATED GLOMERULAR FILTRATION RATE 76 mL/min/1.73m??? Normal >=60 [facility] Comment on above: Order Comment: Luz clement Type: BLOOD SPECIMEN [facility] Address: [address] [place] [address] Result Comment: Breanne mated Glomerular Filtration Rate [...] GFR. Performed By: #### 5 8410-2 #### [facility] CLIA [id number] [address] [place], [place] [address] [place] Glucose [Mass/Vol] 173 mg/dL High 74-99 [facility] Comment on above: Order Comment: Luz vaughan Type: BLOOD SPECIMEN [facility] Address: [address] [place] [address] Result Comment: The [place] Diabetes Association (ADA) provides guidance for cutoff [...] Standards of Medical Care in Diabetes 2016, [place] Diabetes Association. Diabetes Care. 2016.39(Suppl 1). Performed By: #### 5 8410-2 #### [facility] CLIA [id number] [address] [place] [address] [place] Potassium [Moles/Vol] 3.8 mmol/L Normal 3.7-5.1 [facility] Comment on above: Order Comment: Luz vaughan Type: BLOOD SPECIMEN [facility] Address: [address] [place] [address] Performed By: #### 5 8410-2 #### [facility] CLIA [id number] [address] [place] [address] [place] Sodium [Moles/Vol] 138 mmol/L Normal 136-144 [facility] Comment on above: Order Comment: Luz vaughan Type: BLOOD SPECIMEN [facility] Address: [address] [place] [address] Performed By: #### 5 8410-2 #### [facility] CLIA [id number] [address] [place], [place] [address] [place] Urea nitrogen [Mass/Vol] 17 mg/dL Normal 9-24 [facility] Comment on above: Order Comment: Luz vaughan Type: BLOOD SPECIMEN [facility] Address: [address] [place] [address] Performed By: #### 5 8410-2 #### [facility] CLIA [id number] [address] [place], [place] [address] [place] CBC panel Auto (Bld)on 01-20 Erythrocyte distribution width (RBC) [Ratio] 12.8 % Normal 11.5-15.0 [facility] Comment on above: Order Comment: Speci men Type: BLOOD SPECIMENOrdering Facility: [facility] Address: [address] [place] [address] Performed By: #### 5 8410-2 ####[facility]IA [id number] [address] Hematocrit (Bld) [Volume fraction] 41.1 % Normal 39.0-51.0 [facility] Comment on above: Order Comment: Speci men Type: BLOOD SPECIMENOrdering Facility: [facility] Address: [address] [place] [address] Performed By: #### 5 8410-2 ####[facility]IA [id number] [address] Hemoglobin (Bld) [Mass/Vol] 13.8 g/dL Normal 13.0-17.0 [facility] Comment on above: Order Comment: Speci men Type: BLOOD SPECIMENOrdering Facility: [facility] Address: [address] [place] [address] Performed By: #### 5 8410-2 ####[facility]CLIA [id number] [address] [place] MCH (RBC) [Entitic mass] 28.6 pg Normal 26.0-34.0 [facility] Comment on above: Order Comment: Speci men Type: BLOOD SPECIMENOrdering Facility: [facility] Address: [address] [place] [address] Performed By: #### 5 8410-2 ####[facility]CLIA [id number] [address] [place] MCHC (RBC) [Mass/Vol] 33.6 g/dL Normal 30.5-36.0 [facility] Comment on above: Order Comment: Speci men Type: BLOOD SPECIMENOrdering Facility: [facility] Address: [address] [place], [place] [address] Performed By: #### 5 8410-2 ####[facility]IA [id number] [address] MCV (RBC) [Entitic vol] 85.1 fL Normal 80.0-100.0 [facility] Comment on above: Order Comment: Speci men Type: BLOOD SPECIMENOrdering Facility: [facility] Address: [address] [place], [place] [address] Performed By: #### 5 8410-2 ####[facility]IA [id number] [address] [place] Nucleated RBC (Bld) [#/Vol] 10*3/uL Normal <0.01 [facility] Comment on above: Order Comment: Speci men Type: BLOOD SPECIMENOrdering Facility: [facility] Address: [address] [place], [place] [address] Performed By: #### 5 8410-2 ####[facility]CLIA [id number] [place] [address] [place] Platelet mean volume (Bld) [Entitic vol] 10.0 fL Normal 9.0-12.7 [facility] Comment on above: Order Comment: Speci men Type: BLOOD SPECIMENOrdering Facility: [facility] Address: [address] [place], [place] [address] Performed By: #### 5 8410-2 ####[facility]IA [id number] [place] [address] [place] Platelets (Bld) [#/Vol] 246 10*3/uL Normal 150-400 [facility] Comment on above: Order Comment: Speci men Type: BLOOD SPECIMENOrdering Facility: [facility] Address: [address] [place], [place] [address] Performed By: #### 5 8410-2 ####[facility]CLIA [id number] [place] [id number] [facility] RBC (Bld) [#/Vol] 4.83 10*6/uL Normal 4.20-6.00 [facility] Comment on above: Order Comment: Speci men Type: BLOOD SPECIMENOrdering Facility: [facility] Address: [address] [place] [address] Performed By: #### 5 8410-2 ####[facility]CLIA [id number] [place] [id number] [facility] WBC (Bld) [#/Vol] 6.90 10*3/uL Normal 3.70-11.00 [facility] Comment on above: Order Comment: Speci men Type: BLOOD SPECIMENOrdering Facility: [facility] Address: [address] [place] [address] Performed By: #### 5 8410-2 ####[facility]IA [id number] [place] [id number] [facility] CNDSon 01-20-2022 CNDS HNO ID: [id number] Author: Kylah Orantes MD Service: ? Author Type: Physician Type: Discharge Summary Filed: 02/06/2022 12:28 PM Note Text: Internal Medicine discharge [facility] PATIENT NAME: José Manuel Ashton Discharge [...] (A) 4.2 - 5.6 % Final Comment: Location:[facility], [address] [place] [address], [facility] Point of care (POC) Hemoglobin A1c [...] specific diabetes management situations: The POC device school curriculum developer provides a normal range of 4.2% to 6.5% for the HGBA1C POC test. However, the [place] Diabetes Association guidelines indicate that patients with [...] 26 Units subcutaneously daily at bedtime. Insulin Bulls Gap (Disposable) 29 gauge x 1/2 Commonly known [...] one time a week. Kylah Orantes MD [facility] Lipid 1996 panelon 2 Cholesterol [Mass/Vol] 260 mg/dL High <200 [facility] Comment on above: Order Comment: Speci men Type: BLOOD SPECIMENOrdering Facility: [facility] Address: [address] [place] [address] Result Comment: <200 mg/dL, Desirable 200-239 mg/dL, Borderline high >239 mg/dL, High Performed By: #### 2 4331-1 ####[facility]ORYCLIA [id number] [address] Cholesterol in HDL [Mass/Vol] 40 mg/dL Normal >39 [facility] Comment on above: Order Comment: Speci [facility] Type: BLOOD SPECIMENOrdering Facility: [facility] Address: [address] [place] [address] Result Comment: 40-5 9 mg/dL, Acceptable >59 mg/dL, High: Negative risk factor for coronary heart disease <40 mg/dL, Low: Positive risk factor for coronary heart disease Performed By: #### 2 4331-1 ####[facility]ORYCLIA [id number] [address] [facility] Cholesterol in LDL [Mass/Vol] 162 mg/dL High <100 [facility] Comment on above: Order Comment: Speci men Type: BLOOD SPECIMENOrdering Facility: [facility] Address: [address] [place] [address] Result Comment: <100 mg/dL, Optimal 100-129 mg/dL, Near optimal/above optimal 130-159 mg/dL, Borderline high 160-189 mg/dL, High >189 mg/dL, Very high Secondary prevention optimal LDL Cholesterol levels are recommended to be < 70 mg/dL Performed By: #### 2 4331-1 ####[facility]CLIA [id number] [address] [place] [facility] Cholesterol in LDL/Cholesterol in HDL [Mass ratio] 4.05 {ratio} High <2.54 [facility] Comment on above: Order Comment: Speci men Type: BLOOD SPECIMENOrdering Facility: [facility] Address: [address] [place] [address] Result Comment: Refe rence: 1. National Cholesterol Education Program ATP III Guideline At-A-Glance Quick Desk Reference: National Heart, Lung, and Blood [place]. National Institutes of Health. 2001: NIH Publication No. 01-3305. 2. An International Atherosclerosis Society position paper: global recommendations for the management of dyslipidemia: executive summary, Atherosclerosis. 2014: 232(2):410-413. Performed By: #### 2 4331-1 ####[facility]ORYCLIA [id number] [address] [place] Cholesterol in VLDL [Mass/Vol] 58 mg/dL High <30 [facility] Comment on above: Order Comment: Speci men Type: BLOOD SPECIMENOrdering Facility: [facility] Address: [address] [place] [address] Performed By: #### 2 4331-1 ####[facility]ORYCLIA [id number] [place] [id number] [place] Cholesterol non HDL [Mass/Vol] 220 mg/dL High <130 [facility] Comment on above: Order Comment: Speci men Type: BLOOD SPECIMENOrdering Facility: [facility] Address: [address] [place] [address] Result Comment: <130 mg/dL, Optimal 130-159 mg/dL, Near optimal/above optimal 160-189 mg/dL, Borderline high 190-219 mg/dL, High >219 mg/dL, Very high Secondary prevention optimal non HDL Cholesterol levels are recommended to be <100 mg/dL Performed By: #### 2 4331-1 ####[facility]ORYCLIA [id number] [place] [id number] [facility] Cholesterol.total/Cho lesterol in HDL [Mass ratio] 6.50 {ratio} High <5.10 [facility] Comment on above: Order Comment: Speci men Type: BLOOD SPECIMENOrdering Facility: [facility] Address: [address] [place] [address] Performed By: #### 2 4331-1 ####[facility]ORYCLIA [id number] [address] FASTING TIME Normal [facility] Comment on above: Order Comment: Speci men Type: BLOOD SPECIMENOrdering Facility: [facility] Address: [address] [place] [address] Result Comment: Unkn own Performed By: #### 2 4331-1 ####[facility]ORYCLIA [id number] [address] Triglyceride [Mass/Vol] 291 mg/dL High <150 [facility] Comment on above: Order Comment: Speci men Type: BLOOD SPECIMENOrdering Facility: [facility] Address: [address] [place] [address] Result Comment: <150 mg/dL, Normal 150-199 mg/dL, Borderline high 200-499 mg/dL, High >499 mg/dL, Very high Performed By: #### 2 4331-1 ####[facility]ORYCLIA [id number] [place] [id number] [facility] NURSING PROGon 01-20-2022 NURSING PROG HNO ID: [id number] Author: Keyal Trammell RN Service: Nursing Author Type: Registered Nurse Type: Nursing Progress Note Filed: 01/21/2022 7:01 AM Note Text: Nursing Progress note: ([id number]) Start of shift there was an order to transfer Patient to 6D. Pt is AANDOx3. Start of shift Pt seen sitting at the edge of his bed, appears disheveled and withdrawn. Pt has poor eye contact and looks down at the ground while talking with this repairer typewriter.Pt reports feeling angry and frustrated that he [...] belongings were transferred to in stable condition. [facility] NURSING PROG HNO ID: [id number] Author: Chele Mcginnis RN Service: Nursing Author [...] losing his balance. Spoke with my nurse merchandising execution manager to possibly get the patient transferred to . After speaking with clinical nurse merchandising execution manager she recommended transfer to geriatric psych unit. Nature of the crisis: depression leading to medication noncompliance Presenting Problem: José Manuel Ashton is a 61 year old male referred by [facility] for depression. Per Psych consult 01/19/2022 by [...] care. Patient is agreeable. Per ED BH derrick worker Roxanne MOORE on 01/17 This repairer typewriter assessed patient via face to face who presents alert and oriented x 4, appears overweight and disheveled, speech is within normal limits appropriate to tone, prosody, melody, phonetic, and syntax, thought process is linear and organized, difficulty concentrating at times, and a poor historian,, mood is depressed with flat affect, with impaired judgement and insight into illness. Patient reports that his Fish Drier sent him to the emergency room for [...] have too many things going on?. This repairer typewriter inquires if patient believes he will get [...] that he has been forced to a long term in the past for not caring for himself. This repairer typewriter discussed with patient potential for a [facility] nurse to come into home to assist with his medication management to ensure he is caring for self properly and taking medications. Patient has been calm and cooperative in the ED with no restraints or medications administered[facility] H[facility]: [id number] Author: RT Vishal(Neil) Service: ? Author Type: [...] RT Vishal(R) January 19, 2022 3:45 AM [facility] Bacteria Ur Culton 2 Bacteria identified Cx Nom (U) CULTURE, URINE: No growth (<1,000 CFU/ml) Normal [facility] Comment on above: Performed By: #### 6 30-4 ####[facility] LABCLIA [id number] [facility] [facility] [place] [address] [place] Basic metabolic 2000 panelon 01-19-2022 Anion gap [Moles/Vol] 10 mmol/L Normal 9-18 [facility] Comment on above: Order Comment: Speci men Type: BLOOD SPECIMENOrdering Facility: [facility] Address: [address] [place] [address] Performed By: #### 1 9123-9, 46634-4 ####[facility] LABORATORYCLIA [id number] [place] [address] [place] Calcium [Mass/Vol] 9.1 mg/dL Normal 8.5-10.2 [facility] Comment on above: Order Comment: Speci men Type: BLOOD SPECIMENOrdering Facility: [facility] Address: [address] [place] [address] Performed By: #### 1 9123-9, 84524-1 ####[facility] LABORATORYCLIA [id number] [place] [address] [place] Chloride [Moles/Vol] 102 mmol/L Normal 97-105 [facility] Comment on above: Order Comment: Speci men Type: BLOOD SPECIMENOrdering Facility: [facility] Address: [address] [place], [place] [address] Performed By: #### 1 9123-9, 88248-4 ####[facility] LABORATORYCLIA [id number] [place] [id number] [place] CO2 [Moles/Vol] 27 mmol/L Normal 22-30 [facility] Comment on above: Order Comment: Speci men Type: BLOOD SPECIMENOrdering Facility: [facility] Address: [address] [place], [place] [address] Performed By: #### 1 9123-9, 19461-3 ####[facility] LABORATORYCLIA [id number] [address] [address] [place] Creatinine [Mass/Vol] 1.34 mg/dL High 0.73-1.22 [facility] Comment on above: Order Comment: Luz clement Type: BLOOD SPECIMENOrdering Facility: [facility] Address: [address] [place] [address] Performed By: #### 1 9123-9, 08722-8 ####[facility] LABORATORYCLIA [id number] [place] [id number] [place] ESTIMATED GLOMERULAR FILTRATION RATE 60 mL/min/1.73m??? Normal >=60 [facility] Comment on above: Order Comment: Luz vaughan Type: BLOOD SPECIMENOrdering Facility: [facility] Address: [address] [place] [address] Result Comment: Breanne mated Glomerular Filtration Rate [...] actual GFR. Performed By: #### 1 9123-9, 08842-2 ####[facility] LABORATORYCLIA [id number] [place] [id number] [place] Glucose [Mass/Vol] 332 mg/dL High 74-99 [facility] Comment on above: Order Comment: Luz clement Type: BLOOD SPECIMENOrdering Facility: [facility] Address: [address] [place], [place] [address] Result Comment: The [place] Diabetes Association (ADA) provides guidance for cutoff [...] Standards of Medical Care in Diabetes 2016, [place] [employer] Association. Diabetes Care. 2016.39(Suppl 1). Performed By: #### 1 9123-9, 55743-0 ####[facility] LABORATORYCLIA [id number] [place] [id number] [place] Potassium [Moles/Vol] 5.0 mmol/L Normal 3.7-5.1 [facility] Comment on above: Order Comment: Speci men Type: BLOOD SPECIMENOrdering Facility: [facility] Address: [address] [place] [address] Performed By: #### 1 9123-9, 83811-6 ####[facility] LABORATORYCLIA [id number] [place] [id number] [place] Sodium [Moles/Vol] 139 mmol/L Normal 136-144 [facility] Comment on above: Order Comment: Speci men Type: BLOOD SPECIMENOrdering Facility: [facility] Address: [address] [place] [address] Performed By: #### 1 9123-9, 77352-4 ####[facility] LABORATORYCLIA [id number] [place] [id number] [place] Urea nitrogen [Mass/Vol] 21 mg/dL Normal 9-24 [facility] Comment on above: Order Comment: Speci men Type: BLOOD SPECIMENOrdering Facility: [facility] Address: [address] [place] [address] Performed By: #### 1 9123-9, 27845-7 ####[facility] LABORATORYCLIA [id number] [place] [id number] [place] CBC panel Auto (Bld)on 01-19 Erythrocyte distribution width (RBC) [Ratio] 12.9 % Normal 11.5-15.0 [facility] Comment on above: Order Comment: Speci men Type: BLOOD SPECIMENOrdering Facility: [facility] Address: [address] [place], [place] [address] Performed By: #### 5 8410-2 ####[facility] LABORATORYCLIA [id number] [address] [place] [address] [place] Hematocrit (Bld) [Volume fraction] 42.6 % Normal 39.0-51.0 [facility] Comment on above: Order Comment: Speci men Type: BLOOD SPECIMENOrdering Facility: [facility] Address: [address] [place] [address] Performed By: #### 5 8410-2 ####[facility] LABORATORYCLIA [id number] [address] [place] Hemoglobin (Bld) [Mass/Vol] 14.1 g/dL Normal 13.0-17.0 [facility] Comment on above: Order Comment: Speci men Type: BLOOD SPECIMENOrdering Facility: [facility] Address: [address] [place] [address] Performed By: #### 5 8410-2 ####[facility] LABORATORYCLIA [id number] [place] [id number] [place] MCH (RBC) [Entitic mass] 28.3 pg Normal 26.0-34.0 [facility] Comment on above: Order Comment: Speci men Type: BLOOD SPECIMENOrdering Facility: [facility] Address: [address] [place], [place] [address] Performed By: #### 5 8410-2 ####[facility] LABORATORYCLIA [id number] [place] [id number] [place] MCHC (RBC) [Mass/Vol] 33.1 g/dL Normal 30.5-36.0 [facility] Comment on above: Order Comment: Speci men Type: BLOOD SPECIMENOrdering Facility: [facility] Address: [address] [place], [place] [address] Performed By: #### 5 8410-2 ####[facility] LABORATORYCLIA [id number] [address] [place], [place] [address] [place] [facility] MCV (RBC) [Entitic vol] 85.4 fL Normal 80.0-100.0 [facility] Comment on above: Order Comment: Speci men Type: BLOOD SPECIMENOrdering Facility: [facility] Address: [address] [place], [place] [address] Performed By: #### 5 8410-2 ####[facility] LABORATORYCLIA [id number] [address] [place] [address] [place] Nucleated RBC (Bld) [#/Vol] 10*3/uL Normal <0.01 [facility] Comment on above: Order Comment: Speci men Type: BLOOD SPECIMENOrdering Facility: [facility] Address: [address] [place], [place] [address] Performed By: #### 5 8410-2 ####[facility] LABORATORYCLIA [id number] [place] [address] [place] Platelet mean volume (Bld) [Entitic vol] 10.0 fL Normal 9.0-12.7 [facility] Comment on above: Order Comment: Speci men Type: BLOOD SPECIMENOrdering Facility: [facility] Address: [address] [place], [place] [address] Performed By: #### 5 8410-2 ####[facility] LABORATORYCLIA [id number] [address] [place], [place] [address] [place] Platelets (Bld) [#/Vol] 244 10*3/uL Normal 150-400 [facility] Comment on above: Order Comment: Speci men Type: BLOOD SPECIMENOrdering Facility: [facility] Address: [address] [place], [place] [address] Performed By: #### 5 8410-2 ####[facility] LABORATORYCLIA [id number] [place] [id number] [facility] RBC (Bld) [#/Vol] 4.99 10*6/uL Normal 4.20-6.00 [facility] Comment on above: Order Comment: Speci men Type: BLOOD SPECIMENOrdering Facility: [facility] Address: [address] [place] [address] Performed By: #### 5 8410-2 ####[facility] LABORATORYCLIA [id number] [place] [id number] [facility] WBC (Bld) [#/Vol] 6.42 10*3/uL Normal 3.70-11.00 [facility] Comment on above: Order Comment: Speci men Type: BLOOD SPECIMENOrdering Facility: [facility] Address: [address] [place] [address] Performed By: #### 5 8410-2 ####[facility] LABORATORYCLIA [id number] [place] [id number] [facility] CONSULT PROGon 01-19-2022 CONSULT PROG HNO ID: [id number] Author: Rafal Carroll PA-C Service: Psychiatry Author Type: Physician Coin Machine Operator Type: Consult Progress Note Filed: 01/19/2022 2:51 [...] 33 Units SUBCUTANEOUS AT BEDTIME Teresa Diego APRN.ACCELERATOR TECHNICIAN atropine 0.5 mg injection 0.5 mg INTRAVENOUS PRN Radha Mack APRN.ACCELERATOR TECHNICIAN NaCl 0.9% iv flush bag 20 mL INTRAVENOUS PRN Radha Mack APRN.ACCELERATOR TECHNICIAN sodium chloride 0.9 % (flush) 3-5 mL (BD POSIFLUSH) 3-5 mL INTRAVENOUS q 12 H Radha Mack APRN.ACCELERATOR TECHNICIAN 5 mL at 01/18/222014 aluminum-magnesium hydroxide-simethicone 200-200-20 mg/5 mL 30 mL (MAALOX,MYLANTA,MAG-AL PLUS) 30 mL ORAL DAILY PRN Radha Mack APRN.ACCELERATOR TECHNICIAN acetaminophen 650 mg tab(s) (TYLENOL) 650 mg ORAL q 6 H PRN Radha Mack APRN.ACCELERATOR TECHNICIAN 650 mg at 01/18/22 0818 insulin lispro injection (rapid acting) (ADMELOG) SUBCUTANEOUS AT BEDTIME Radha Mack APRN.ACCELERATOR TECHNICIAN 2 Units at 01/18/22 0123 hydrALAZINE 10 mg injection (APRESOLINE) 10 mg INTRAVENOUS q 6 H PRN Radha Mack APRN.ACCELERATOR TECHNICIAN lisinopril 20 mg tab(s) (ZESTRIL, PRINIVIL) 20 mg ORAL DAILY Radha Mack APRN.ACCELERATOR TECHNICIAN 20 mg at 01/19/22 0848 tamsulosin 0.4 mg cap(s) (FLOMAX) 0.4 mg ORAL AT BEDTIME Radha Mack APRN.ACCELERATOR TECHNICIAN 0.4 mg at 01/18/222014 insulin lispro injection (rapid acting) (ADMELOG) SUBCUTANEOUS w MEALS Nusrat Nash APRN.ACCELERATOR TECHNICIAN 9 Units at 01/19/22 0825 pioglitazone 45 mg tab(s) (ACTOS) 45 mg ORAL DAILY Nusrat Nash APRN.ACCELERATOR TECHNICIAN 45 mg at 01/19/22 0848 docusate sodium 100 mg cap(s) (COLACE) 100 mg ORAL BID Nusrat Nash APRN.ACCELERATOR TECHNICIAN 100 mg at 01/18/222014 polyethylene glycol 3350 17 g packet (MIRALAX, GLYCOLAX) 17 g ORAL DAILY Nusrat Nash APRN.ACCELERATOR TECHNICIAN 17 g at 01/18/22 1222 venlafaxine ER [...] (98.1 ?F) 3 (more content not included)... [facility] CT BRAIN WO IVCONon 01-20-20 CT BRAIN WO IVCON * * *Final Report* * * DATE OF EXAM: Jan 19 2022 3:45AM FAVIO 0504 - CT BRAIN WO IVCON / PROCEDURE REASON: Head trauma, moderate-severe * * * * Physician Interpretation * * * * EXAMINATION: CT BRAIN WO IVCON, CT CERVICAL SPINE WO IVCON CLINICAL HISTORY: Head trauma, moderate-severe (accession [id number]), Neck trauma, midline tenderness (Age 16-64y) (accession [id number]) TECHNIQUE: Serial axial images without IV contrast [...] Counting reference: Craniocervical junction. Anatomic Variants: None. Workers Compensation Claims Examiner (topogram) images: Cardiac leads overlie the upper [...] CT: No cervical spine fracture or subluxation. Staff Assistant: ROBERTA Transcribe Date/Time: Jan 19 2022 3:52A Dictated by : ASHISH MARY MD This examination was interpreted and the report reviewed and electronically signed by: ASHISH MARY MD on Jan 19 2022 4:00AM EST [id number] [facility] CT CERVICAL SPINE WO IVCONon 01-19-2022 [...] IVCON CLINICAL HISTORY: Head trauma, moderate-severe (accession [id number]), Neck trauma, midline tenderness (Age 16-64y) (accession [id number]) TECHNIQUE: Serial axial images without IV contrast [...] Counting reference: Craniocervical junction. Anatomic Variants: None. Workers Compensation Claims Examiner (topogram) images: Cardiac leads overlie the upper [...] CT: No cervical spine fracture or subluxation. Staff Assistant: ROBERTA Transcribe Date/Time: Jan 19 2022 3:52A Dictated by : ASHISH MARY MD This examination was interpreted and the report reviewed and electronically signed by: ASHISH MARY MD on Jan 19 2022 4:00AM EST [id number] Normal [facility] ETHYL GLUCURONIDE UR SCRon 1 ETHYL GLUCURONIDE UR SCR Negative Normal Cutoff 500 [facility] Comment on above: Order Comment: Speci men Type: URINE SPECIMENOrdering Facility: [facility] Address: [address] [place], [place] [address] Result Comment: INTE RPRETIVE INFORMATION: Ethyl Glucuronide Screen with Reflex to Confirmation, Urine Ethyl glucuronide is a direct metabolite of ethanol and can be detected up to 80 hours in urine after ethanol ingestion. The cutoff for positive by immunoassay is set at 500 ng/mL. A positive result will be confirmed by liquid chromatography tandem mass spectrometry (LC-MS/MS). Performed By: [employer] [address] [place] [address] Practicing Dermatologist: Derian Moreno MD, PhD Performed By: #### U EGLUC ####[facility] LABORATORIESIA [id number] [place] [address] Free PSA [Mass/Vol]on 2021 Free PSA/Total PSA [Mass fraction] 49 % Normal [facility] Comment on above: Order Comment: Speci men Type: BLOOD SPECIMEN [facility] Address: [address] [place] [address] Result Comment: Tota l and free PSA [...] 15.8% Performed By: #### 5 8410-2 #### [facility] CLIA [id number] [address] [place] [address] [place] [facility] Prostate specific Ag [Mass/Vol] 0.74 ng/mL Normal <2.60 [facility] Comment on above: Order Comment: Speci men Type: BLOOD SPECIMEN [facility] Address: [address] [place] [address] Result Comment: Tota l PSA test methodology used is the Electrochemiluminescence Immunoassay by [employer]. Total PSA values by differing methodologies cannot be interchanged. Performed By: #### 5 8410-2 #### [facility] [place] [id number] [address] [place] [address] [place] GGT SerPl-cCncon 01-19-2022 Gamma glutamyl transferase [Catalytic activity/Vol] 24 U/L Normal 10-70 [facility] Comment on above: Order Comment: Speci men Type: BLOOD SPECIMEN [facility] Address: [address] [place] [address] Performed By: #### 5 8410-2 #### [facility] [place] [id number] [address] [place] [address] [place] Gamma glutamyl transferase [Catalytic activity/Vol] 9 U/L Low 10-70 [facility] Comment on above: Order Comment: Speci men Type: BLOOD SPECIMENOrdering Facility: [facility] Address: [address] [place] [address] Performed By: #### 2 324-2 ####[facility] LABCLIA [id number] [place] [address] [place] MEDICAL EMERon 01-19-2022 MEDICAL KIYA HNO ID: [id number] Author: Liam Saldana APRN.ACCELERATOR TECHNICIAN Service: Critical Care Author Type: Nurse Practitioner [...] noted physicial (more content not included)... Normal [facility] Magnesium [facility] Foundationon 01-19 Magnesium [Mass/Vol] 1.9 mg/dL Normal 1.7-2.3 [facility] Comment on above: Order Comment: Speci men Type: BLOOD SPECIMENOrdering Facility: [facility] Address: [address] [place] [address] Performed By: #### 1 9123-9, 54965-4 ####[facility] LABORATORYCLIA [id number] [address] [facility] NURSING PROGon 01-19-2022 NURSING PROG HNO ID: [id number] Author: Rebecca Goetz, LEATHA Service: Nursing Author Type: Registered Nurse Type: Nursing Progress Note Filed: 01/19/2022 4:04 AM Note Text: Post Fall Assessment José Manuel Yao Poli [id number] Witnessed: No How did fall occur: Pt [...] CT Name of LIP notified: Liam Saldana air control/anti air warfare officer Notify family as appropriate: Pt declined family notification Post fall interventions: Fall Huddle Conducted, Bed Alarm On, Frequent Observation, Patient/Family Education, Apply a Yellow Wrist Band, Apply Hudgins Risk Symbol to the Door, and My Safety Plan Updated This note was completed by:Rebecca Goetz [facility] THERAPY NTon 01-19-2022 THERAPY NT HNO ID: [id number] Author: Prasanth Jeronimo, PT Service: Physical Therapy Author Type: Physical Therapist Type: Therapy (PT/OT/Speech/Resp) Filed: 01/19/2022 3:22 PM Note Text: Physical Therapy Evaluation SERVICE DATE: 01/19/2022 SERVICE TIME: 1419 to 1450 ROOM: [place] [address] Recommended Discharge Disposition: Subacute/SNF Recommended Discharge Disposition [...] emergency department at the direction of his applied exercise physiologist, Dr. Kennedy for psych eval Relevant Past [...] will demonst (more content not included)... Normal [facility] URINALYSIS, REFLEX MICROSCOP ICon 01-19-2022 Bilirubin Ql (U) Negative Normal Negative [facility] Comment on above: Order Comment: Speci men Type: URINE SPECIMENOrdering Facility: [facility] Address: [address] [place] [address] Performed By: #### L [id number] ####[facility] LABORATORYCLIA [id number] [address] [place] [address] [place] Clarity (Unsp spec) Clear Normal Clear [facility] Comment on above: Order Comment: Speci men Type: URINE SPECIMENOrdering Facility: [facility] Address: [address] [place] [address] Performed By: #### L [id number] ####[facility] LABORATORYCLIA [id number] [address] [place] Color (U) Yellow Normal Yellow [facility] Comment on above: Order Comment: Speci men Type: URINE SPECIMENOrdering Facility: [facility] Address: [address] [place] [address] Performed By: #### L [id number] ####[facility] LABORATORYCLIA [id number] [place] [address] [place] Epithelial cells LM.HPF (Urine sed) [#/Area] Few Normal [facility] Comment on above: Order Comment: Speci men Type: URINE SPECIMENOrdering Facility: [facility] Address: [address] [place] [address] Result Comment: Few Performed By: #### L [id number] ####[facility] LABORATORYCLIA [id number] [address] [place] [address] [facility] [place] Glucose Test strip (U) [Mass/Vol] 2+ Abnormal Negative [facility] Comment on above: Order Comment: Speci men Type: URINE SPECIMENOrdering Facility: [facility] Address: [address] [place] [address] Performed By: #### L [id number] ####[facility] LABORATORYCLIA [id number] [address] [place] [address] [place] [facility] Hemoglobin Ql (U) 1+ Abnormal Negative [facility] Comment on above: Order Comment: Speci men Type: URINE SPECIMENOrdering Facility: [facility] Address: [address] [place] [address] Performed By: #### L [id number] ####[facility] LABORATORYCLIA [id number] [address] [place], [place] [address] [place] [facility] Ketones Ql (U) Trace Abnormal Negative [facility] Comment on above: Order Comment: Speci men Type: URINE SPECIMENOrdering Facility: [facility] Address: [address] [place] [address] Performed By: #### L [id number] ####[facility] LABORATORYCLIA [id number] [address] [place], [place] [address] [facility] Leukocyte esterase Test strip Ql (U) Negative Normal Negative [facility] Comment on above: Order Comment: Speci men Type: URINE SPECIMENOrdering Facility: [facility] Address: [address] [place] [address] Performed By: #### L [id number] ####[facility] LABORATORYCLIA [id number] [address] [place] [address] [place] Nitrite Ql (U) Negative Normal Negative [facility] Comment on above: Order Comment: Speci men Type: URINE SPECIMENOrdering Facility: [facility] Address: [address] [place] [address] Performed By: #### L [id number] ####[facility] LABORATORYCLIA [id number] [place] [address] [place] pH (U) 7.0 [pH] Normal 5.0-8.0 [facility] Comment on above: Order Comment: Speci men Type: URINE SPECIMENOrdering Facility: [facility] Address: [address] [place] [address] Performed By: #### L [id number] ####[facility] LABORATORYCLIA [id number] [place] [address] [place] Protein (U) [Mass/Vol] Normal [facility] Comment on above: Order Comment: Speci men Type: URINE SPECIMENOrdering Facility: [facility] Address: [address] [place] [address] Result Comment: Visi ble blood causes falsely elevated results for analyte Protein. Due to this limitation, Protein will not be reported for patients whose urine contains visible blood. Performed By: #### L [id number] ####[facility] LABORATORYCLIA [id number] [place] [address] [place] RBC LM.HPF (Urine sed) [#/Area] 6-10 /HPF Abnormal 0-3 /HPF [facility] Comment on above: Order Comment: Speci men Type: URINE SPECIMENOrdering Facility: [facility] Address: [address] [place] [address] Performed By: #### L [id number] ####[facility] LABORATORYCLIA [id number] [place] [id number] [place] Specific gravity (U) [Rel density] 1.020 Normal 1.005-1.030 [facility] Comment on above: Order Comment: Speci men Type: URINE SPECIMENOrdering Facility: [facility] Address: [address] [place] [address] Performed By: #### L [id number] ####[facility] LABORATORYCLIA [id number] [address] [place] Urobilinogen Ql (U) 0.2 EU/dL Normal 0.2-1.0 EU/dL [facility] Comment on above: Order Comment: Speci men Type: URINE SPECIMENOrdering Facility: [facility] Address: [address] [place] [address] Performed By: #### L [id number] ####[facility] LABORATORYCLIA [id number] [address] [place] WBC LM.HPF (Urine sed) [#/Area] 0-5 /HPF Normal 0-5 /HPF [facility] Comment on above: Order Comment: Speci men Type: URINE SPECIMENOrdering Facility: [facility] Address: [address] [place] [address] Performed By: #### L [id number] ####[facility] LABORATORYCLIA [id number] [address] ALLIED HEALTHon 01-18-2022 ALLIED HEALTH HNO ID: [id number] Author: MARCOS Brush Service: Radiology Author Type: Eap Consultant Type: Allied Health Filed: 01/18/2022 10:17 AM [...] Brush January 18, 2022 10:17 AM [facility]: [id number] Author: Bunny Vera, CT Service: Radiology Author Type: Eap Consultant Type: Allied Health Filed: 01/18/2022 9:07 AM Note Text: ORAL CONTRAST TAKEN TO 4D AND GIVEN TO PATIENTS NURSE JAYESH. 20ML OPTIRAY 240 AND [address]. Normal [facility] [facility] 2000 panelon 01-18-2022 Anion gap [Moles/Vol] 10 mmol/L Normal 12-19 [facility] Comment on above: Order Comment: Speci men Type: BLOOD SPECIMEN [facility] Address: [address] [place] [address] Performed By: #### 5 8410-2 #### [facility] CLIA [id number] [address] [place] [address] [place] Calcium [Mass/Vol] 8.9 mg/dL Normal 8.5-10.2 [facility] Comment on above: Order Comment: Speci men Type: BLOOD SPECIMEN [facility] Address: [address] [place] [address] Performed By: #### 5 8410-2 #### [facility] CLIA [id number] [address] [place] [address] [place] Chloride [Moles/Vol] 101 mmol/L Normal 97-105 [facility] Comment on above: Order Comment: Speci men Type: BLOOD SPECIMEN [facility] Address: [address] [place] [address] Performed By: #### 5 8410-2 #### [facility] CLIA [id number] [address] [place], [place] [address] [place] CO2 [Moles/Vol] 26 mmol/L Normal 22-30 [facility] Comment on above: Order Comment: Speci men Type: BLOOD SPECIMEN [facility] Address: [address] [place] [address] Performed By: #### 5 8410-2 #### [facility] CLIA [id number] [address] [place] [address] [place] Creatinine [Mass/Vol] 1.18 mg/dL Normal 0.73-1.22 [facility] Comment on above: Order Comment: Luz vaughan Type: BLOOD SPECIMEN [facility] Address: [address] [place] [address] Performed By: #### 5 8410-2 #### [facility] [id number] [address] [place] [address] ESTIMATED GLOMERULAR FILTRATION RATE 70 mL/min/1.73m??? Normal >=60 [facility] Comment on above: Order Comment: Luz vaughan Type: BLOOD SPECIMEN [facility] Address: [address] [place] [address] Result Comment: Breanne mated Glomerular Filtration Rate [...] GFR. Performed By: #### 5 8410-2 #### [id number] [address] [place] [address] [place] Glucose [Mass/Vol] 415 mg/dL High 74-99 [facility] Comment on above: Order Comment: Luz vaughan Type: BLOOD SPECIMEN [facility] Address: [address] [place] [address] Result Comment: The [place] Diabetes Association (ADA) provides guidance for cutoff [...] Standards of Medical Care in Diabetes 2016, [place] [employer] Association. Diabetes Care. 2016.39(Suppl 1). Performed By: #### 5 8410-2 #### [facility] CLIA [id number] [address] [place] [address] [place] Potassium [Moles/Vol] 4.7 mmol/L Normal 3.7-5.1 [facility] Comment on above: Order Comment: Luz men Type: BLOOD SPECIMEN [facility] Address: [address] [place] [address] Performed By: #### 5 8410-2 #### [facility] CLIA [id number] [address] [place] [address] Sodium [Moles/Vol] 137 mmol/L Normal 136-144 [facility] Comment on above: Order Comment: Luz vaughan Type: BLOOD SPECIMEN [facility] Address: [address] [place] [address] Performed By: #### 5 8410-2 #### [facility] CLIA [id number] [address] [place], [place] [address] [place] [facility] Urea nitrogen [Mass/Vol] 24 mg/dL Normal 9-24 [facility] Comment on above: Order Comment: Luz vaughan Type: BLOOD SPECIMEN [facility] Address: [address] [place] [address] Performed By: #### 5 8410-2 #### [facility] CLIA [id number] [address] [place], [place] [address] [place] CASE MGT INIT SANDOVALsteve 2021 CASE MGT INIT ASSTEAGAN HNO ID: [id number] Author: OSCAR Bennett Service: Social Work Author Type: Jogger Operator Type: Care Mgt Initial Assessment Filed: [...] assessment ADVANCE DIRECTIVES Current Advance Directive: None Buildings And Grounds Coordinator Attempted to Assist with AD Completion: Yes [...] discharge within 30 days: No PATIENT SCREEN Patient/Betting Clerk Stated Goals: To have reduction in symptoms;To [...] Mostly I feel financially burdened by my qmf-kg-qoqxwa expenses for my prescription medication:: 0 - [...] Health Diagnosis (more content not included)... Normal [facility] CBC panel Auto (Bld)on 01-18 Erythrocyte distribution width (RBC) [Ratio] 13.0 % Normal 11.5-15.0 [facility] Comment on above: Order Comment: Speci men Type: BLOOD SPECIMEN [facility] Address: [address] [facility] [address] Performed By: #### 5 8410-2 #### [facility] [place] [id number] [address] [place] [address] [place] Hematocrit (Bld) [Volume fraction] 41.5 % Normal 39.0-51.0 [facility] Comment on above: Order Comment: Speci men Type: BLOOD SPECIMEN [facility] Address: [address] [place] [address] Performed By: #### 5 8410-2 #### [facility] [place] [id number] [address] [place] [address] [place] Hemoglobin (Bld) [Mass/Vol] 13.9 g/dL Normal 13.0-17.0 [facility] Comment on above: Order Comment: Speci men Type: BLOOD SPECIMEN [facility] Address: [address] [place] [address] Performed By: #### 5 8410-2 #### [facility] IA [id number] [address] [place] [address] STATES [facility] MCH (RBC) [Entitic mass] 28.8 pg Normal 26.0-34.0 [facility] Comment on above: Order Comment: Speci men Type: BLOOD SPECIMEN [facility] Address: [address] [place] [address] Performed By: #### 5 8410-2 #### [facility] [place] [id number] [address] [place] [address] [place] MCHC (RBC) [Mass/Vol] 33.5 g/dL Normal 30.5-36.0 [facility] Comment on above: Order Comment: Speci men Type: BLOOD SPECIMEN [facility] Address: [address] [place] [address] Performed By: #### 5 8410-2 #### [facility] [place] [id number] [address] [place] [address] [place] MCV (RBC) [Entitic vol] 86.1 fL Normal 80.0-100.0 [facility] Comment on above: Order Comment: Speci men Type: BLOOD SPECIMEN [facility] Address: [address] [place], [place] [address] Performed By: #### 5 8410-2 #### [facility] CLIA [id number] [address] [place] [address] [place] Nucleated RBC (Bld) [#/Vol] 10*3/uL Normal <0.01 [facility] Comment on above: Order Comment: Speci men Type: BLOOD SPECIMEN [facility] Address: [address] [place], [place] [address] Performed By: #### 5 8410-2 #### [facility] CLIA [id number] [address] [place] [address] [place] Platelet mean volume (Bld) [Entitic vol] 9.8 fL Normal 9.0-12.7 [facility] Comment on above: Order Comment: Speci men Type: BLOOD SPECIMEN [facility] Address: [address] [place], [place] [address] Performed By: #### 5 8410-2 #### [facility] IA [id number] [address] [place] [address] [place] Platelets (Bld) [#/Vol] 258 10*3/uL Normal 150-400 [facility] Comment on above: Order Comment: Speci men Type: BLOOD SPECIMEN [facility] Address: [address] [place], [place] [address] Performed By: #### 5 8410-2 #### [facility] CLIA [id number] [address] [place] [address] [place] RBC (Bld) [#/Vol] 4.82 10*6/uL Normal 4.20-6.00 [facility] Comment on above: Order Comment: Speci men Type: BLOOD SPECIMEN [facility] Address: [facility] [place] [address] Performed By: #### 5 8410-2 #### [facility] IA [id number] [address] [place], [place] [address] [facility] WBC (Bld) [#/Vol] 6.34 10*3/uL Normal 3.70-11.00 [facility] Comment on above: Order Comment: Speci men Type: BLOOD SPECIMEN [facility] Address: [address] [place] [address] Performed By: #### 5 8410-2 #### [facility] [id number] [address] [place], [place] [address] [facility] CONSULTon 01-18-2022 CONSULT HNO ID: [id number] Author: Rafal Carroll PA-C Service: Psychiatry Author Type: Physician Coin Machine Operator Type: Consults Filed: 01/19/2022 3:08 PM Note [...] to the ED as recommended by his applied exercise physiologist for a psychiatric evaluation in the context of poor compliance to treatment. 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 Kenendy for psych eval who saw him in [...] Was prescribed Wellbutrin, but didn't take. Per [facility], his last psych visit was in [...] 01/17/2022 UETOH <11 (more content not included)... [facility] CT ABD/PEL WO IVCONon 2021 CT [...] annulus. No pericardial effusion or pericardial thickening. Workers Compensation Claims Examiner (topogram) images: No additional findings. IMPRESSION: No acute process identified involving the abdomen or pelvis. There are findings possibly related to constipation. Findings of remote granulomatous disease. Diffuse mural thickening of the bladder likely related to chronic bladder outlet obstruction. Additional findings noted above. Staff Assistant: ROBERTA Transcribe Date/Time: Jan 18 2022 11:14A Dictated by : PRASANTH DARNELL MD This examination was interpreted and the report reviewed and electronically signed by: PRASANTH DARNELL MD on Jan 18 2022 11:21AM EST [id number] [facility] ED NOTEon 01-18-2022 ED NOTE HNO ID: [id number] Author: Los Nguyen RN Service: ? Author Type: Registered Nurse Type: ED Notes Filed: 01/17/2022 11:22 PM Note Text: Report given to Rebecca, pt ready to be transferred at this time. [facility] ED NOTE HNO ID: [id number] Author: Los Nguyen RN Service: ? Author Type: Registered Nurse Type: ED Notes Filed: 01/17/2022 11:14 PM Note Text: POC 254 [facility] HISTORY PHYSICALon 2 HISTORY PHYSICAL HNO ID: [id number] Author: Kylah Orantes MD Service: ? Author Type: Physician Type: HANDP Filed: 02/06/2022 12:27 PM Note Text: [facility] JOSÉ MANUEL ASHTON : 1960 AGE: 61 SEX: M CSN: [id number] [facility]: [facility] LOCATION: [facility] ATTENDING PHYSICIAN: Kylah Orantes M.D. DATE [...] emergency department at the direction of his applied exercise physiologist, Dr. Kennedy for psych eval who saw [...] quittin.8 Smokeless tobacco: Never Tobacco comments: Smokes [place] Vaping Use Vaping Use: Never used Substance [...] 7.0 Alb (more content not included)... Normal [facility] CBC panel Auto (Bld)on 01-17 Erythrocyte distribution width (RBC) [Ratio] 12.9 % Normal 11.5-15.0 [facility] Comment on above: Order Comment: Speci men Type: BLOOD SPECIMEN [facility] Address: [address] [place] [address] Performed By: #### 5 8410-2 #### [facility] CLIA [id number] [address] [place] [address] [facility] Hematocrit (Bld) [Volume fraction] 49.3 % Normal 39.0-51.0 [facility] Comment on above: Order Comment: Speci men Type: BLOOD SPECIMEN [facility] Address: [address] [place] [address] Performed By: #### 5 8410-2 #### [facility] CLIA [id number] [address] [place] [address] Hemoglobin (Bld) [Mass/Vol] 16.1 g/dL Normal 13.0-17.0 [facility] Comment on above: Order Comment: Speci men Type: BLOOD SPECIMEN [facility] Address: [address] [place] [address] Performed By: #### 5 8410-2 #### [facility] CLIA [id number] [address] [place] [address] MCH (RBC) [Entitic mass] 28.1 pg Normal 26.0-34.0 [facility] Comment on above: Order Comment: Speci men Type: BLOOD SPECIMEN [facility] Address: [address] [place] [address] Performed By: #### 5 8410-2 #### [facility] CLIA [id number] [address] [place] [address] STATES [facility] MCHC (RBC) [Mass/Vol] 32.7 g/dL Normal 30.5-36.0 [facility] Comment on above: Order Comment: Speci men Type: BLOOD SPECIMEN [facility] Address: [address] [place] [address] Performed By: #### 5 8410-2 #### [facility] [place] [id number] [address] [place] [address] [place] MCV (RBC) [Entitic vol] 86.0 fL Normal 80.0-100.0 [facility] Comment on above: Order Comment: Speci men Type: BLOOD SPECIMEN [facility] Address: [address] [place] [address] Performed By: #### 5 8410-2 #### [facility] CLIA [id number] [address] [place] [address] [place] Nucleated RBC (Bld) [#/Vol] 10*3/uL Normal <0.01 [facility] Comment on above: Order Comment: Speci men Type: BLOOD SPECIMEN [facility] Address: [address] [place], [place] [address] Performed By: #### 5 8410-2 #### [facility] CLIA [id number] [address] [place] [address] [place] Platelet mean volume (Bld) [Entitic vol] 9.3 fL Normal 9.0-12.7 [facility] Comment on above: Order Comment: Speci men Type: BLOOD SPECIMEN [facility] Address: [address] [place], [place] [address] Performed By: #### 5 8410-2 #### [facility] CLIA [id number] [address] [place] [address] [place] Platelets (Bld) [#/Vol] 283 10*3/uL Normal 150-400 [facility] Comment on above: Order Comment: Speci men Type: BLOOD SPECIMEN [facility] Address: [address] [place] [address] Performed By: #### 5 8410-2 #### [facility] IA [id number] [address] [place] [address] [place] RBC (Bld) [#/Vol] 5.73 10*6/uL Normal 4.20-6.00 [facility] Comment on above: Order Comment: Speci men Type: BLOOD SPECIMEN [facility] Address: [address] [place], [place] [address] Performed By: #### 5 8410-2 #### [facility] CLIA [id number] [address] [place], [place] [address] [place] WBC (Bld) [#/Vol] 6.69 10*3/uL Normal 3.70-11.00 [facility] Comment on above: Order Comment: Speci men Type: BLOOD SPECIMEN [facility] Address: [address] [place], [place] [address] Performed By: #### 5 8410-2 #### [facility] [id number] [address] [place] [id number] [facility] CNOVon 01-17-2022 CNOV Office Visit (KIDLU ) -- NADERJOSÉ MANUEL BOND ([id number]) 1960 M T Date Time Provider Department 01/17/22 3:00 PM BILLY MARTINEZ During your visit today, we recorded the following information about you: Pulse Blood pressure Weight Height 90/minute 165/85 115.7 kg 1.778 m Billy Cody MD 01/17/2022 3:36 PM Signed [facility] [place] NEPHROLOGY CONSULT NOTE Patient Name: José Manuel [...] get helped. He has a psychiatrist at [facility] [place] [place]. PAST MEDICAL HISTORY: PAST MEDICAL HISTORY [...] quittin.8 Smokeless tobacco: Never Tobacco comments: Smokes [place] Vaping Use Vaping Use: Never used Substance Use Topics Alcohol use: Not Currently Drug use: Yes Types: Marijuana Comment: daily Single. No children. He lives with his brother and sister. (He moved back from [place]). 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 He quit tobacco in 2019. He [...] tablets before breakfast and before supper Insulin [place], Disposable, (COMFORT EZ P (more content not included)... Normal [facility] Comprehensive metabolic 2000 panelon 01-17-2022 Albumin [Mass/Vol] 4.0 g/dL Normal 3.9-4.9 [facility] Comment on above: Order Comment: Luz vaughan Type: BLOOD SPECIMEN [facility] Address: [address] [place] [address] Performed By: #### 5 8410-2 #### [facility] CLIA [id number] [address] [place] [address] [place] ALP [Catalytic activity/Vol] 127 U/L High 38-113 [facility] Comment on above: Order Comment: Speci men Type: BLOOD SPECIMEN [facility] Address: [address] [place] [address] Performed By: #### 5 8410-2 #### [facility] CLIA [id number] [address] [place] [address] [place] ALT [Catalytic activity/Vol] 15 U/L Normal 10-54 [facility] Comment on above: Order Comment: Speci men Type: BLOOD SPECIMEN [facility] Address: [address] [place], [place] [address] Performed By: #### 5 8410-2 #### [facility] CLIA [id number] [address] [place], [place] [address] [place] Anion gap [Moles/Vol] 12 mmol/L Normal 9-18 [facility] Comment on above: Order Comment: Speci men Type: BLOOD SPECIMEN [facility] Address: [address] [place] [address] Performed By: #### 5 8410-2 #### [facility] CLIA [id number] [address] [place] [address] [place] AST [Catalytic activity/Vol] 14 U/L Normal 14-40 [facility] Comment on above: Order Comment: Speci men Type: BLOOD SPECIMEN [facility] Address: [address] [place], [place] [address] Performed By: #### 5 8410-2 #### [facility] CLIA [id number] [facility] [place] [id number] [place] Bilirubin [Mass/Vol] 0.3 mg/dL Normal 0.2-1.3 [facility] Comment on above: Order Comment: Speci men Type: BLOOD SPECIMEN [facility] Address: [address] [place], [place] [address] Performed By: #### 5 8410-2 #### [facility] CLIA [id number] [facility] [place], [place] [address] [place] Calcium [Mass/Vol] 10.2 mg/dL Normal 8.5-10.2 [facility] Comment on above: Order Comment: Speci men Type: BLOOD SPECIMEN [facility] Address: [address] [place], [place] [address] Performed By: #### 5 8410-2 #### [facility] CLIA [id number] [address] [place], [place] [address] [place] Chloride [Moles/Vol] 98 mmol/L Normal 97-105 [facility] Comment on above: Order Comment: Speci men Type: BLOOD SPECIMEN [facility] Address: [address] [place] [address] Performed By: #### 5 8410-2 #### [facility] IA [id number] [address] [place], [place] [address] [place] CO2 [Moles/Vol] 27 mmol/L Normal 22-30 [facility] Comment on above: Order Comment: Speci men Type: BLOOD SPECIMEN [facility] Address: [address] [place] [address] Performed By: #### 5 8410-2 #### [facility] IA [id number] [address] [place], [place] [address] [place] Creatinine [Mass/Vol] 1.22 mg/dL Normal 0.73-1.22 [facility] Comment on above: Order Comment: Speci men Type: BLOOD SPECIMEN [facility] Address: [address] [place] [address] Performed By: #### 5 8410-2 #### [facility] IA [id number] [address] [place], [place] [address] [facility] ESTIMATED GLOMERULAR FILTRATION RATE 67 mL/min/1.73m??? Normal >=60 [facility] Comment on above: Order Comment: Speci men Type: BLOOD SPECIMEN [facility] Address: [address] [place] [address] Result Comment: Breanne mated Glomerular Filtration Rate [...] GFR. Performed By: #### 5 8410-2 #### [facility] [id number] [address] [place] [address] [place] Glucose [Mass/Vol] 312 mg/dL High 74-99 [facility] Comment on above: Order Comment: Luz vaughan Type: BLOOD SPECIMEN [facility] Address: [address] [place] [address] Result Comment: The [place] Diabetes Association (ADA) provides guidance for cutoff [...] Standards of Medical Care in Diabetes 2016, [place] Diabetes Association. Diabetes Care. 2016.39(Suppl 1). Performed By: #### 5 8410-2 #### [facility] [id number] [address] [place], [place] [address] [place] Potassium [Moles/Vol] 4.3 mmol/L Normal 3.7-5.1 [facility] Comment on above: Order Comment: Luz vaughan Type: BLOOD SPECIMEN [facility] Address: [address] [place], [place] [address] Performed By: #### 5 8410-2 #### [facility] [id number] [address] [place], [place] [address] [place] Protein [Mass/Vol] 7.0 g/dL Normal 6.3-8.0 [facility] Comment on above: Order Comment: Luz vaughan Type: BLOOD SPECIMEN [facility] Address: [address] [place], [place] [address] Performed By: #### 5 8410-2 #### [facility] CLIA [id number] [facility] [address] Sodium [Moles/Vol] 137 mmol/L Normal 136-144 [facility] Comment on above: Order Comment: Speci men Type: BLOOD SPECIMEN [facility] Address: [address] [place] [address] Performed By: #### 5 8410-2 #### [facility] IA [id number] [facility] [address] STATES [facility] Urea nitrogen [Mass/Vol] 26 mg/dL High 9-24 [facility] Comment on above: Order Comment: Speci men Type: BLOOD SPECIMEN [facility] Address: [address] [place] [address] Performed By: #### 5 8410-2 #### [facility] IA [id number] [address] [place] [address] ECG COMPLETEon 01-17-2022 ECG COMPLETE Ventricular Rate : 8 9 BPM Atrial Rate : 90 BPM P-R Interval : 155 ms QRS Duration : 111 ms Q-T Interval : 385 ms QTC Calculation(Bazett) : 469 ms Calculated P [place] : 35 degrees Calculated R [place] : 53 degrees Calculated T [place] : 52 degrees Sinus rhythm Probable left atrial enlargement Low voltage, precordial leads Probable anteroseptal infarct, old Abnormal ECG NO CHANGE FROM 04/21/21. OLMAN 01/17 Confirmed [place] ([id number]), assistant production editor MOHINDER LINDER ([id number]) on 01/18/2022 11:00:19 AM NAME : JOSÉ MANUEL ASHTON PID : [id number] : 1960 Gender : Male Race : ORD : [id number] Procedure Date : Jan 17 2022 20:58:11 Edit Date : Jan 18 2022 11:00:23 Diagnosis: Sinus rhythm Probable left atrial enlargement Low voltage, precordial leads Probable anteroseptal infarct, old Abnormal ECG NO CHANGE FROM 04/21/21. OLMAN 01/17 Confirmed by MD RASCON BRYAN ([id number]), assistant production editor MOHINDER LINDER ([id number]) on 01/18/2022 11:00:19 AM Test Reason : Arrhythmia Location : 502 : LUED 12 Overread By : MD RASCON BRYAN Edited By : MOHINDER LINDER Referred By : , Acquired by : VAMSI, [facility] ED NOTEon 01-17-2022 ED NOTE HNO ID: [id number] Author: Regi Tavarez, LEATHA Service: Nursing Author Type: Registered Nurse Type: ED Notes Filed: 01/17/2022 6:34 PM Note Text: Pt sent by Dr Kennedy for psychiatric eval from appointment today Pt states he is having hard time understanding his medical dx and keeping up with his T2DM. [facility] ED PROV NOTEon 01-17-2022 ED PROV NOTE HNO ID: [id number] Author: Pa Rascon MD Service: Emergency Medicine [...] emergency department at the direction of his applied exercise physiologist, Dr. Kennedy for psych eval who saw [...] quittin.8 Smokeless tobacco: Never Tobacco comments: Smokes [place] Vaping Use Vaping Use: Never used Substance [...] not ill-appea (more content not included)... Normal [facility] Ethanol SerPl-ncon 022 Ethanol [Mass/Vol] 29 mg/dL High <11 [facility] Comment on above: Order Comment: Speci men Type: BLOOD SPECIMEN [facility] Facility[facility] Address: [address] [place] [address] Performed By: #### 5 8410-2 #### [facility] [place] [id number] [address] [place] [address] [place] [facility] KETONES/ACETONE/BHBon 2021 Beta hydroxybutyrate [Moles/Vol] 1.55 mmol/L High <0.28 [facility] Comment on above: Order Comment: Speci men Type: BLOOD SPECIMEN Ordering Facility: [facility] Address: [address] [place] [address] Performed By: #### 5 8410-2 #### [facility] CLIA [id number] [address] [place] [address] [place] TOX SCREEN ROUT URon 022 Amphetamines Confirm (U) [Mass/Vol] Negative Normal Negative [facility] Comment on above: Order Comment: Speci men Type: BLOOD SPECIMEN Ordering Facility: [facility] Address: [address] [place] [address] Result Comment: Cuto ff threshold at 1000 ng/mL. Performed By: #### 5 8410-2 #### [facility] CLIA [id number] [facility] [address] BARBITURATES, URINE Negative Normal Negative [facility] Comment on above: Order Comment: Speci men Type: BLOOD SPECIMEN [facility] Facility: [facility] Address: [address] [place] [address] Result Comment: Cuto ff threshold at 200 ng/mL. Performed By: #### 5 8410-2 #### [facility] CLIA [id number] [address] [place] [address] [place] BENZODIAZEPINES, UR Negative Normal Negative [facility] Comment on above: Order Comment: Speci men Type: BLOOD SPECIMEN [facility] Facility[facility] Address: [address] [place] [address] Result Comment: Cuto ff threshold at 200 ng/mL. Performed By: #### 5 8410-2 #### [facility] CLIA [id number] [address] [place] [address] [place] CANNABINOIDS,URINE Positive Abnormal Negative [facility] Comment on above: Order Comment: Speci men Type: BLOOD SPECIMEN [facility] Address: [address] [place] [address] Result Comment: Cuto ff threshold at 50 ng/mL. Performed By: #### 5 8410-2 #### [facility] CLIA [id number] [address] [place], [place] [id number] [facility] Cocaine Ql (U) Negative Normal Negative [facility] Comment on above: Order Comment: Speci men Type: BLOOD SPECIMEN [facility] Address: [address] [place] [address] Result Comment: Cuto ff threshold at 300 ng/mL. Performed By: #### 5 8410-2 #### [facility] CLIA [id number] [address] [place], [place] [address] [place] [facility] Ethanol (U) [Mass/Vol] <11 Normal <11 [facility] Comment on above: Order Comment: Speci men Type: BLOOD SPECIMEN [facility] Address: [address] [place] [address] Performed By: #### 5 8410-2 #### [facility] CLIA [id number] [address] [place], [place] [address] [facility] Opiates Screen Ql (U) Negative Normal Negative [facility] Comment on above: Order Comment: Speci men Type: BLOOD SPECIMEN [facility] Address: [address] [place] [address] Result Comment: Cuto ff threshold at 300 ng/mL. Performed By: #### 5 8410-2 #### [facility] CLIA [id number] [address] [place], [place] [address] [facility] oxyCODONE cutoff Screen (U) [Mass/Vol] Negative Normal Negative [facility] Comment on above: Order Comment: Speci men Type: BLOOD SPECIMEN [facility] Address: [address] [place] [address] Result Comment: Cuto ff threshold at 100 ng/mL. Performed By: #### 5 8410-2 #### [facility] CLIA [id number] [address] [place], [place] [address] [facility] Phencyclidine Ql (U) Negative Normal Negative [facility] Comment on above: Order Comment: Speci men Type: BLOOD SPECIMEN [facility] Address: [address] [place] [address] Result Comment: Cuto ff threshold at 25 ng/mL. Performed By: #### 5 8410-2 #### [facility] CLIA [id number] [address] [place] [address] TROPONIN Ton 01-17-2022 Troponin T.cardiac [Mass/Vol] 0.011 ug/L Normal 0.000-0.029 [facility] Comment on above: Order Comment: Speci men Type: BLOOD SPECIMEN Order[facility] Address: [address] [place] [address] Performed By: #### T NT #### [facility] CLIA [id number] [address] [place] [address] [place] TSH SerPl-aCncon 01-17-2022 TSH Qn 1.870 m[IU]/L Normal 0.270-4.200 [facility] Comment on above: Order Comment: Speci men Type: BLOOD SPECIMEN [facility] Address: [address] [place] [address] Performed By: #### 5 8410-2 #### [facility] CLIA [id number] [address] [place] [address] Urinalysis complete panel (U )on 01-17-2022 Bacteria LM.HPF (Urine sed) [#/Area] Few Abnormal None Seen [facility] Comment on above: Order Comment: Speci men Type: BLOOD SPECIMEN [facility] Address: [address] [place] [address] Performed By: #### 5 8410-2 #### [facility] CLIA [id number] [address] [place] [address] Bilirubin Ql (U) Negative Normal Negative [facility] Comment on above: Order Comment: Speci men Type: BLOOD SPECIMEN [facility] Address: [address] [place] [address] Performed By: #### 5 8410-2 #### [facility] CLIA [id number] [address] [place] [address] [place] Clarity (Unsp spec) Clear Normal Clear [facility] Comment on above: Order Comment: Speci men Type: BLOOD SPECIMEN [facility] Address: [address] [place] [address] Performed By: #### 5 8410-2 #### [facility] CLIA [id number] [address] [place] [address] Color (U) Yellow Normal Yellow [facility] Comment on above: Order Comment: Speci men Type: BLOOD SPECIMEN [facility] Address: [address] [place] [address] Performed By: #### 5 8410-2 #### [facility] CLIA [id number] [address] [place] Epithelial cells LM.HPF (Urine sed) [#/Area] Few Normal [facility] Comment on above: Order Comment: Speci men Type: BLOOD SPECIMEN [facility] Address: [address] [place] [address] Result Comment: Few Performed By: #### 5 8410-2 #### [facility] CLIA [id number] [address] [place] [address] [place] Glucose Test strip (U) [Mass/Vol] 3+ Abnormal Negative [facility] Comment on above: Order Comment: Speci men Type: BLOOD SPECIMEN [facility] Address: [address] [place] [address] Performed By: #### 5 8410-2 #### [facility] CLIA [id number] [address] [place], [place] [address] [place] Hemoglobin Ql (U) 2+ Abnormal Negative [facility] Comment on above: Order Comment: Speci men Type: BLOOD SPECIMEN [facility] Address: [address] [place] [address] Performed By: #### 5 8410-2 #### [facility] CLIA [id number] [address] Hyaline casts (Urine sed) [#/Area] 1-3 /LPF Abnormal 0 /LPF [facility] Comment on above: Order Comment: Speci men Type: BLOOD SPECIMEN [facility] Address: [address] [place] [address] Performed By: #### 5 8410-2 #### [facility] CLIA [id number] [address] [place] [address] Ketones Ql (U) 1+ Abnormal Negative [facility] Comment on above: Order Comment: Speci men Type: BLOOD SPECIMEN [facility] Address: [address] [place] [address] Performed By: #### 5 8410-2 #### [facility] CLIA [id number] [address] [place] [address] Leukocyte esterase Test strip Ql (U) Negative Normal Negative [facility] Comment on above: Order Comment: Speci men Type: BLOOD SPECIMEN [facility] Address: [address] [place] [address] Performed By: #### 5 8410-2 #### [facility] CLIA [id number] [address] [place] [address] Nitrite Ql (U) Negative Normal Negative [facility] Comment on above: Order Comment: Speci men Type: BLOOD SPECIMEN [facility] Address: [address] [place] [address] Performed By: #### 5 8410-2 #### [facility] CLIA [id number] [address] [place] [address] pH (U) 6.0 [pH] Normal 5.0-8.0 [facility] Comment on above: Order Comment: Speci men Type: BLOOD SPECIMEN [facility] Address: [address] [place] [address] Performed By: #### 5 8410-2 #### [facility] CLIA [id number] [address] [place], [place] [address] [place] [facility] Protein (U) [Mass/Vol] Normal [facility] Comment on above: Order Comment: Speci men Type: BLOOD SPECIMEN [facility] Address: [address] [place] [address] Result Comment: Visi ble blood causes falsely elevated results for analyte Protein. Due to this limitation, Protein will not be reported for patients whose urine contains visible blood. Performed By: #### 5 8410-2 #### [facility] CLIA [id number] [address] [place] [address] [place] RBC LM.HPF (Urine sed) [#/Area] 3-5 /HPF Abnormal 0-3 /HPF [facility] Comment on above: Order Comment: Speci men Type: BLOOD SPECIMEN [facility] Address: [address] [place] [address] Performed By: #### 5 8410-2 #### [facility] IA [id number] [address] [place] [address] [place] Specific gravity (U) [Rel density] >=1.030 High 1.005-1.030 [facility] Comment on above: Order Comment: Speci men Type: BLOOD SPECIMEN [facility] Address: [address] [place] [address] Performed By: #### 5 8410-2 #### [facility] CLIA [id number] [address] [place], [place] [address] [place] Urobilinogen Ql (U) 0.2 EU/dL Normal 0.2-1.0 EU/dL [facility] Comment on above: Order Comment: Speci men Type: BLOOD SPECIMEN [facility] Address: [address] [place] [address] Performed By: #### 5 8410-2 #### [facility] CLIA [id number] [address] [place] [id number] [place] WBC LM.HPF (Urine sed) [#/Area] 0-5 /HPF Normal 0-5 /HPF [facility] Comment on above: Order Comment: Speci men Type: BLOOD SPECIMEN [facility] Address: [address] [place] [address] Performed By: #### 5 8410-2 #### [facility] CLIA [id number] [address] [place] [id number] [place] XR CHEST 1V [...] exam with no evidence of acute disease. Staff Assistant: PSCB Transcribe Date/Time: Jan 17 2022 8:15P Dictated by : LAZARO SENA MD This examination was interpreted and the report reviewed and electronically signed by: LAZARO SENA MD on Jan 17 2022 8:15PM EST [id number] Normal [facility] GLUCOSE, BLOOD (POC)on 01-03 Glucose [Mass/Vol] 290 mg/dL Abnormal 74 - 99 mg/dL [facility] HEMOGLOBIN A1C (POC)on 01-03 HbA1c (Bld) [Mass fraction] 13.4 % Abnormal 4.2 - 5.6 % [facility] GLUCOSE, BLOOD (POC)on 11-05 Glucose [Mass/Vol] 330 mg/dL Abnormal 74 - 99 mg/dL [facility] HEMOGLOBIN A1C (POC)on 11-05 HbA1c (Bld) [Mass fraction] 11.3 % Abnormal 4.2 - 5.6 % [facility] GLUCOSE, BLOOD (POC)on 10-05 Glucose [Mass/Vol] 184 mg/dL Abnormal 74 - 99 mg/dL [facility] HEMOGLOBIN A1C (POC)on 10-05 HbA1c (Bld) [Mass fraction] 11.5 % Abnormal 4.2 - 5.6 % [facility] GLUCOSE, BLOOD (POC)on 09-20 Glucose [Mass/Vol] 197 mg/dL Abnormal 74 - 99 mg/dL [facility] HEMOGLOBIN A1C (POC)on 09-20 HbA1c (Bld) [Mass fraction] 12.5 % Abnormal 4.2 - 5.6 % [facility] GLUCOSE, BLOOD (POC)on 08-11 Glucose [Mass/Vol] 434 mg/dL Abnormal 74 - 99 mg/dL [facility] HEMOGLOBIN A1C (POC)on 08-11 HbA1c (Bld) [Mass fraction] 12.7 % Abnormal 4.2 - 5.6 % [facility] MRI PELVIS WO/W IVCONon 09-[address] [facility] [address] ABD/PEL W IVCONon 021 CT ABD/PEL W IVCON Final Report DATE OF EXAM: Jun 26 2020 3:38PM [facility] 0530 - CT ABD/PEL W IVCON [...] L5-S1. Lower thorax: No significant additional findings. Workers Compensation Claims Examiner (topogram) images: No significant additional findings. IMPRESSION: [...] be communicated with the ordering provider via [employer] staff message or phone message by [employer] within 2 business days of report finalization. Algorithms for management of incidental imaging findings can be found on the [facility] Intranet Sharepoint site at: [email or web address] [email or web address] [email or web address] Staff Assistant: ROBERTA Transcribe Date/Time: Jun 29 2020 1:50P Dictated by : LUIS BADILLO MD This examination was interpreted and the report reviewed and electronically signed by: LUIS BADILLO MD on Jun 29 2020 2:03PM EST ACTIONABLE Normal [facility] Otheron 05-14-2020 [facility] XR SHLDR >/=3V AP/KRISHNA AP/OTH R [...] IMPRESSION: Mild osteoarthritis of the acromioclavicular joint. Staff Assistant: [facility] Transcribe Date/Time: May 14 2020 3:04P Dictated by : AJ SUN MD This examination was interpreted and the report reviewed and electronically signed by: AJ SUN MD on May 14 2020 3:05PM EST Normal [facility] Metabolic Panelon 04-27-2020 Glucose [Mass/Vol] 230 mg/dL Abnormal 65 - 100 mg/dL [facility] Otheron 04-27-2020 Quality Check Yes [facility] Otheron 02-17-2020 [facility] XR LUMBAR 3V AP/LAT/L5-S1on 02-17-2020 XR [...] osseous abnormalities. 2. Moderate multilevel degenerative changes. Staff Assistant: ROBERTA Transcribe Date/Time: Feb 17 2020 2:33P Dictated by : AKIN DUDLEY MD This examination was interpreted and the report reviewed and electronically signed by: AKIN DUDLEY MD on Feb 17 2020 2:36PM EST Normal [facility] No Panel Information [facility] Vital Signs Date Time Vital Sign Value Performing Clinician Faci lity 11-29-2024 13:46-0400 Body temperature 97.81 [degF] Omid Adames MD Work Phone: [employer] 11-29-2024 13:46-0400 Diastolic blood pressure 83 mm[Hg] Omid Adames MD Work Phone: [employer] 11-29-2024 13:46-0400 Heart rate 85 /min Omid Adames MD Work Phone: [employer] 11-29-2024 13:46-0400 Respiratory rate 17 /min Omid Adames MD Work Phone: [employer] 11-29-2024 13:46-0400 Systolic blood pressure 153 mm[Hg] Omid Adames MD Work Phone: [employer] 11-29-2024 03:00-0400 Body mass index (BMI) [Ratio] 38.02 kg/m2 Omid Adames MD Work Phone: [employer] 11-29-2024 03:00-0400 Body weight 120.2 kg Omid Adames MD Work Phone: [employer] 11-28-2024 20:22-0400 SaO2% (BldA) [Mass fraction] 91 % Omid Adames MD Work Phone: [employer] 11-28-2024 13:58-0400 Body height 177.8 cm Omid Adames MD Work Phone: [employer] 07-10-2024 14:11-0400 Body height 172.7 cm Jose Dudley MD Work Phone: [facility] 07-10-2024 14:11-0400 Body mass index (BMI) [Ratio] 38.62 kg/m2 Jose Dudley MD Work Phone: [facility] 07-10-2024 14:11-0400 Body temperature 97.9 [degF] Jose Dudley MD Work Phone: [facility] 07-10-2024 14:11-0400 Body weight 115.21 kg Jose Dudley MD Work Phone: [facility] 07-10-2024 14:11-0400 Diastolic blood pressure 91 mm[Hg] Jose Dudley MD Work Phone: [facility] 07-10-2024 14:11-0400 Heart rate 84 /min Jose Dudley MD Work Phone: [facility] 07-10-2024 14:11-0400 SaO2% (BldA) [Mass fraction] 98 % Jose Dudley MD Work Phone: [facility] 07-10-2024 14:11-0400 Systolic blood pressure 168 mm[Hg] Jose Dudley MD Work Phone: [facility] 05-13-2024 12:02-0500 Diastolic blood pressure 91 mm[Hg] Artem Ahmadi MD Work Phone: [facility] 05-13-2024 12:02-0500 Heart rate 76 /min Artem Ahmadi MD Work Phone: [facility] 05-13-2024 12:02-0500 Respiratory rate 14 /min Artem Ahmadi MD Work Phone: [facility] 05-13-2024 12:02-0500 SaO2% (BldA) [Mass fraction] 97 % Artem Ahmadi MD Work Phone: [facility] 05-13-2024 12:02-0500 Systolic blood pressure 179 mm[Hg] Artem Ahmadi MD Work Phone: [facility] 05-13-2024 11:46-0500 Body temperature 97.39 [degF] Artem Ahmadi MD Work Phone: [facility] 01-24-2024 13:45-0400 Body height 172.7 cm Jose Dudley MD Work Phone: [facility] 01-24-2024 13:45-0400 Body mass index (BMI) [Ratio] 35.58 kg/m2 Jose Dudley MD Work Phone: [facility] 01-24-2024 13:45-0400 Body weight 106.14 kg Jose Dudley MD Work Phone: [facility] 01-24-2024 13:45-0400 Diastolic blood pressure 98 mm[Hg] Jose Dudley MD Work Phone: [facility] 01-24-2024 13:45-0400 Heart rate 75 /min Jose Dudley MD Work Phone: [facility] 01-24-2024 13:45-0400 Systolic blood pressure 192 mm[Hg] Jose Dudley MD Work Phone: [facility] 11-20-2023 10:53-0400 Diastolic blood pressure 74 mm[Hg] Noé Russfener PT Work Phone: [facility] 11-20-2023 10:53-0400 Heart rate 80 /min Noé Rufener PT Work Phone: [facility] 11-20-2023 10:53-0400 Respiratory rate 16 /min Noé Rufener PT Work Phone: [facility] 11-20-2023 10:53-0400 SaO2% (BldA) [Mass fraction] 98 % Noé Rufener PT Work Phone: [facility] 11-20-2023 10:53-0400 Systolic blood pressure 134 mm[Hg] Noé Rufener PT Work Phone: [facility] 11-20-2023 10:22-0400 Body temperature 98.4 [degF] Noé Namsoniya PT Work Phone: [facility] 11-16-2023 14:25-0400 Body temperature 98.2 [degF] Eda Birght RN Work Phone: [facility] 11-16-2023 14:25-0400 Diastolic blood pressure 80 mm[Hg] Eda Bright RN Work Phone: [facility] 11-16-2023 14:25-0400 Heart rate 80 /min Eda Bright RN Work Phone: [facility] 11-16-2023 14:25-0400 Respiratory rate 18 /min Eda Bright RN Work Phone: [facility] 11-16-2023 14:25-0400 SaO2% (BldA) [Mass fraction] 97 % Eda Bright RN Work Phone: [facility] 11-16-2023 14:25-0400 Systolic blood pressure 136 mm[Hg] Eda Bright RN Work Phone: [facility] 11-14-2023 10:30-0400 Diastolic blood pressure 74 mm[Hg] Prinston Hairston GENERATION TECHNICIAN Work Phone: [facility] Comment on above: exertion 11-14-2023 10:30-0400 Heart rate 83 /min Prinston Hairston GENERATION TECHNICIAN Work Phone: [facility] 11-14-2023 10:30-0400 Respiratory rate 19 /min Prinston Hairston GENERATION TECHNICIAN Work Phone: [facility] 11-14-2023 10:30-0400 SaO2% (BldA) [Mass fraction] 97 % Prinston Hairston GENERATION TECHNICIAN Work Phone: [facility] 11-14-2023 10:30-0400 Systolic blood pressure 140 mm[Hg] Prinston Hairston GENERATION TECHNICIAN Work Phone: [facility] Comment on above: exertion 11-14-2023 09:57-0400 Body temperature 97.9 [degF] Prinston Hairston GENERATION TECHNICIAN Work Phone: [facility] 11-13-2023 09:22-0400 Body temperature 97.9 [degF] Keyla Fernanda OT/L Work Phone: [facility] 11-13-2023 09:22-0400 Diastolic blood pressure 82 mm[Hg] Keyla Fernanda OT/L Work Phone: [facility] 11-13-2023 09:22-0400 Heart rate 79 /min Keyla Fernanda OT/L Work Phone: [facility] 11-13-2023 09:22-0400 Respiratory rate 18 /min Keyla Fernanda OT/L Work Phone: [facility] 11-13-2023 09:22-0400 SaO2% (BldA) [Mass fraction] 98 % Keyla Fernanda OT/L Work Phone: [facility] 11-13-2023 09:22-0400 Systolic blood pressure 140 mm[Hg] Keyla Fernanda OT/L Work Phone: [facility] 11-10-2023 15:55-0400 Body temperature 98.1 [degF] Eda Bright RN Work Phone: [facility] 11-10-2023 15:55-0400 Diastolic blood pressure 78 mm[Hg] Eda Bright RN Work Phone: [facility] 11-10-2023 15:55-0400 Heart rate 80 /min Eda Bright RN Work Phone: [facility] 11-10-2023 15:55-0400 Respiratory rate 20 /min Eda Bright RN Work Phone: [facility] 11-10-2023 15:55-0400 SaO2% (BldA) [Mass fraction] 98 % Eda Bright RN Work Phone: [facility] 11-10-2023 15:55-0400 Systolic blood pressure 136 mm[Hg] Eda Bright RN Work Phone: [facility] 11-09-2023 09:09-0400 Diastolic blood pressure 84 mm[Hg] Prinston Hairston GENERATION TECHNICIAN Work Phone: [facility] Comment on above: exertion 11-09-2023 09:09-0400 Heart rate 83 /min Prinston Hairston GENERATION TECHNICIAN Work Phone: [facility] 11-09-2023 09:09-0400 Respiratory rate 16 /min Prinston Hairston GENERATION TECHNICIAN Work Phone: [facility] 11-09-2023 09:09-0400 SaO2% (BldA) [Mass fraction] 98 % Prinston Hairston GENERATION TECHNICIAN Work Phone: [facility] 11-09-2023 09:09-0400 Systolic blood pressure 132 mm[Hg] Prinston Hairston GENERATION TECHNICIAN Work Phone: [facility] Comment on above: exertion 11-09-2023 08:46-0400 Body temperature 98.01 [degF] Prinston Hairston GENERATION TECHNICIAN Work Phone: [facility] 11-07-2023 14:46-0400 Diastolic blood pressure 76 mm[Hg] Prinston Hairston GENERATION TECHNICIAN Work Phone: [facility] Comment on above: exertion 11-07-2023 14:46-0400 Heart rate 84 /min Prinston Hairston GENERATION TECHNICIAN Work Phone: [facility] 11-07-2023 14:46-0400 Respiratory rate 18 /min Prinston Hiarston GENERATION TECHNICIAN Work Phone: [facility] 11-07-2023 14:46-0400 SaO2% (BldA) [Mass fraction] 98 % Prinston Hairston GENERATION TECHNICIAN Work Phone: [facility] 11-07-2023 14:46-0400 Systolic blood pressure 140 mm[Hg] Prinston Hairston GENERATION TECHNICIAN Work Phone: [facility] Comment on above: exertion 11-07-2023 14:15-0400 Body temperature 98.49 [degF] Prinston Hairston GENERATION TECHNICIAN Work Phone: [facility] 11-06-2023 09:10-0400 Body temperature 98.2 [degF] Keyla Fernanda OT/L Work Phone: [facility] 11-06-2023 09:10-0400 Diastolic blood pressure 70 mm[Hg] Keyla Fernanda OT/L Work Phone: [facility] 11-06-2023 09:10-0400 Heart rate 77 /min Keyla Fernanda OT/L Work Phone: [facility] 11-06-2023 09:10-0400 Respiratory rate 18 /min Keyla Fernanda OT/L Work Phone: [facility] 11-06-2023 09:10-0400 SaO2% (BldA) [Mass fraction] 97 % Keyla Fernanda OT/L Work Phone: [facility] 11-06-2023 09:10-0400 Systolic blood pressure 128 mm[Hg] Keyla Fernanda OT/L Work Phone: [facility] 11-03-2023 15:53-0400 Body temperature 97.39 [degF] Eda Bright RN Work Phone: [facility] 11-03-2023 15:53-0400 Diastolic blood pressure 78 mm[Hg] Eda Bright RN Work Phone: [facility] 11-03-2023 15:53-0400 Heart rate 68 /min Eda Bright RN Work Phone: [facility] 11-03-2023 15:53-0400 Respiratory rate 20 /min Eda Bright RN Work Phone: [facility] 11-03-2023 15:53-0400 SaO2% (BldA) [Mass fraction] 98 % Eda Bright RN Work Phone: [facility] 11-03-2023 15:53-0400 Systolic blood pressure 138 mm[Hg] Eda Bright RN Work Phone: [facility] 11-02-2023 15:42-0400 Diastolic blood pressure 76 mm[Hg] Renea Puentesaver GENERATION TECHNICIAN Work Phone: [facility] 11-02-2023 15:42-0400 Heart rate 70 /min Renea Puentesaver GENERATION TECHNICIAN Work Phone: [facility] 11-02-2023 15:42-0400 Respiratory rate 16 /min Renea Hairston GENERATION TECHNICIAN Work Phone: [facility] 11-02-2023 15:42-0400 SaO2% (BldA) [Mass fraction] 98 % Renea Hairston GENERATION TECHNICIAN Work Phone: [facility] 11-02-2023 15:42-0400 Systolic blood pressure 136 mm[Hg] Renea Hairston GENERATION TECHNICIAN Work Phone: [facility] 11-02-2023 15:15-0400 Body temperature 97.7 [degF] Renea Hairston GENERATION TECHNICIAN Work Phone: [facility] 10-31-2023 15:25-0400 Body temperature 97.39 [degF] Eda Bright RN Work Phone: [facility] 10-31-2023 15:25-0400 Diastolic blood pressure 78 mm[Hg] Eda Bright RN Work Phone: [facility] 10-31-2023 15:25-0400 Heart rate 76 /min Eda Bright RN Work Phone: [facility] 10-31-2023 15:25-0400 Respiratory rate 18 /min Eda Bright RN Work Phone: [facility] 10-31-2023 15:25-0400 SaO2% (BldA) [Mass fraction] 98 % Eda Bright RN Work Phone: [facility] 10-31-2023 15:25-0400 Systolic blood pressure 144 mm[Hg] Eda Bright RN Work Phone: [facility] 10-30-2023 09:20-0400 Body temperature 98.4 [degF] Keyla Fernanda OT/L Work Phone: [facility] 10-30-2023 09:20-0400 Diastolic blood pressure 78 mm[Hg] Keyla Fernanda OT/L Work Phone: [facility] 10-30-2023 09:20-0400 Heart rate 76 /min Keyla Fernanda OT/L Work Phone: [facility] 10-30-2023 09:20-0400 Respiratory rate 18 /min Keyla Fernanda OT/L Work Phone: [facility] 10-30-2023 09:20-0400 SaO2% (BldA) [Mass fraction] 97 % Keyla Fernanda OT/L Work Phone: [facility] 10-30-2023 09:20-0400 Systolic blood pressure 132 mm[Hg] Keyla Fernanda OT/L Work Phone: [facility] 10-28-2023 12:58-0400 Diastolic blood pressure 79 mm[Hg] Zohaib Giffels PT Work Phone: [facility] 10-28-2023 12:58-0400 Heart rate 80 /min Zohaib Giffels PT Work Phone: [facility] 10-28-2023 12:58-0400 Respiratory rate 18 /min Zohaib Giffels PT Work Phone: [facility] 10-28-2023 12:58-0400 SaO2% (BldA) [Mass fraction] 98 % Zohaib Giffels PT Work Phone: [facility] 10-28-2023 12:58-0400 Systolic blood pressure 141 mm[Hg] Zohaib Giffels PT Work Phone: [facility] 10-28-2023 12:33-0400 Body temperature 98.29 [degF] Zohaib Giffels PT Work Phone: [facility] 10-27-2023 10:17-0400 Body temperature 98.4 [degF] Keyla Fernanda OT/L Work Phone: [facility] 10-27-2023 10:17-0400 Diastolic blood pressure 64 mm[Hg] Keyla Fernanda OT/L Work Phone: [facility] 10-27-2023 10:17-0400 Heart rate 83 /min Keyla Fernanda OT/L Work Phone: [facility] 10-27-2023 10:17-0400 Respiratory rate 18 /min Keyla Fernanda OT/L Work Phone: [facility] 10-27-2023 10:17-0400 SaO2% (BldA) [Mass fraction] 99 % Keyla Fernanda OT/L Work Phone: [facility] 10-27-2023 10:17-0400 Systolic blood pressure 148 mm[Hg] Keyla Fernanda OT/L Work Phone: [facility] 10-26-2023 09:59-0400 Body temperature 98.01 [degF] Eda Bright RN Work Phone: [facility] 10-26-2023 09:59-0400 Diastolic blood pressure 74 mm[Hg] Eda Bright RN Work Phone: [facility] 10-26-2023 09:59-0400 Heart rate 76 /min Eda Bright RN Work Phone: [facility] 10-26-2023 09:59-0400 Respiratory rate 18 /min Eda Bright RN Work Phone: [facility] 10-26-2023 09:59-0400 SaO2% (BldA) [Mass fraction] 98 % Eda Bright RN Work Phone: [facility] 10-26-2023 09:59-0400 Systolic blood pressure 136 mm[Hg] Eda Bright RN Work Phone: [facility] 10-22-2023 11:58-0400 Body height 172.7 cm Nguyen Whitaker RN Work Phone: [facility] 10-22-2023 11:58-0400 Body mass index (BMI) [Ratio] 37.89 kg/m2 Nguyenleon Whitaker RN Work Phone: [facility] 10-22-2023 11:58-0400 Body temperature 97.2 [degF] Nguyenleon Whitaker RN Work Phone: [facility] 10-22-2023 11:58-0400 Body weight 113.04 kg Nguyenleon Whitaker RN Work Phone: [facility] 10-22-2023 11:58-0400 Diastolic blood pressure 86 mm[Hg] Nguyenleon Whitaker RN Work Phone: [facility] 10-22-2023 11:58-0400 Heart rate 84 /min Nguyenleon Whitaker RN Work Phone: [facility] 10-22-2023 11:58-0400 Respiratory rate 16 /min Nguyenleon Whitaker RN Work Phone: [facility] 10-22-2023 11:58-0400 SaO2% (BldA) [Mass fraction] 98 % Nguyenleon Whitaker RN Work Phone: [facility] 10-22-2023 11:58-0400 Systolic blood pressure 144 mm[Hg] Nguyenleon Whitaker RN Work Phone: [facility] 07-12-2023 14:16-0400 Body height 177.8 cm Noé Kennedy MD Work Phone: [facility] 07-12-2023 14:16-0400 Body weight 108.86 kg Noé Kennedy MD Work Phone: [facility] 05-23-2023 11:08-0500 Body height 177.8 cm Mónica Peterson MD Work Phone: [facility] 05-23-2023 11:08-0500 Body weight 109.2 kg Mónica Peterson MD Work Phone: [facility] 05-23-2023 11:08-0500 Diastolic blood pressure 109 mm[Hg] Mónica Peterson MD Work Phone: [facility] 05-23-2023 11:08-0500 Heart rate 97 /min Mónica Peterson MD Work Phone: [facility] 05-23-2023 11:08-0500 Respiratory rate 16 /min Mónica Peterson MD Work Phone: [facility] 05-23-2023 11:08-0500 SaO2% (BldA) [Mass fraction] 99 % Mónica Peterson MD Work Phone: [facility] 05-23-2023 11:08-0500 Systolic blood pressure 195 mm[Hg] Mónica Peterson MD Work Phone: [facility] 01-23-2023 14:18-0400 Body height 177.8 cm Mark Godinez MD Work Phone: [facility] 01-23-2023 14:18-0400 Body weight 113.85 kg Mark Godinez MD Work Phone: [facility] 01-23-2023 14:18-0400 Respiratory rate 18 /min Mark Godinez MD Work Phone: [facility] 12-23-2022 15:46-0400 Body height 177.8 cm Belgica Vega DO Work Phone: [facility] 12-23-2022 15:46-0400 Body weight 114.76 kg Belgica Vega DO Work Phone: [facility] 12-23-2022 15:46-0400 Diastolic blood pressure 91 mm[Hg] Belgica Vega DO Work Phone: [facility] 12-23-2022 15:46-0400 Heart rate 91 /min Belgica Vega DO Work Phone: [facility] 12-23-2022 15:46-0400 Systolic blood pressure 153 mm[Hg] Belgica Vega DO Work Phone: [facility] 11-04-2022 15:04-0400 Body height 177.8 cm Belgica Vega DO Work Phone: [facility] 11-04-2022 15:04-0400 Body weight 117.48 kg Belgica Vega DO Work Phone: [facility] 11-04-2022 15:04-0400 Diastolic blood pressure 82 mm[Hg] Belgica Vega DO Work Phone: [facility] 11-04-2022 15:04-0400 Heart rate 99 /min Belgica Vega DO Work Phone: [facility] 11-04-2022 15:04-0400 Systolic blood pressure 142 mm[Hg] Belgica Vega DO Work Phone: [facility] 11-02-2022 14:18-0400 Body height 177.8 cm Noé Kennedy MD Work Phone: [facility] 11-02-2022 14:18-0400 Body weight 115.67 kg Noé Kennedy MD Work Phone: [facility] 11-02-2022 14:18-0400 Heart rate 90 /min Noé Kennedy MD Work Phone: [facility] 11-02-2022 14:18-0400 SaO2% (BldA) [Mass fraction] 96 % Noé Kennedy MD Work Phone: [facility] 10-13-2022 09:290400 Body height 177.8 cm Sukumar Toney MD Work Phone: [facility] 10-13-2022 09:29-0400 Body weight 115.67 kg Sukumar Toney MD Work Phone: [facility] 10-13-2022 09:29-0400 Diastolic blood pressure 93 mm[Hg] Sukumar Toney MD Work Phone: [facility] 10-13-2022 09:29-0400 Heart rate 90 /min Sukumar Toney MD Work Phone: [facility] 10-13-2022 09:29-0400 SaO2% (BldA) [Mass fraction] 96 % Sukumar Toney MD Work Phone: [facility] 10-13-2022 09:29-0400 Systolic blood pressure 165 mm[Hg] Sukumar Toney MD Work Phone: [facility] 10-10-2022 13:32-0400 Body height 177.8 cm Mark Godinez MD Work Phone: [facility] 10-10-2022 13:32-0400 Body weight 115.21 kg Mark Godinez MD Work Phone: [facility] 10-10-2022 13:32-0400 Respiratory rate 16 /min Mark Godinez MD Work Phone: [facility] 09-28-2022 11:05-0400 Body height 177.8 cm Belgica Vega DO Work Phone: [facility] 09-28-2022 11:05-0400 Body weight 115.21 kg Belgica Vega DO Work Phone: [facility] 09-28-2022 11:05-0400 Diastolic blood pressure 81 mm[Hg] Belgica Vega DO Work Phone: [facility] 09-28-2022 11:05-0400 Heart rate 101 /min Belgica Vega DO Work Phone: [facility] 09-28-2022 11:05-0400 Systolic blood pressure 135 mm[Hg] Belgica Vega DO Work Phone: [facility] 09-23-2022 15:27-0400 Body height 177.8 cm Binh Peiffer DO Work Phone: [facility] 09-23-2022 15:27-0400 Body weight 115.21 kg Binh Peiffer DO Work Phone: [facility] 09-23-2022 15:27-0400 Respiratory rate 16 /min Binh Peiffer DO Work Phone: [facility] 09-02-2022 13:34-0400 Body height 177.8 cm Binh Peiffer DO Work Phone: [facility] 09-02-2022 13:34-0400 Body weight 115.21 kg Binh Peiffer DO Work Phone: [facility] 09-02-2022 13:34-0400 Respiratory rate 20 /min Binh Peiffer DO Work Phone: [facility] 08-12-2022 15:35-0400 Body height 177.8 cm Belgica Vega DO Work Phone: [facility] 08-12-2022 15:35-0400 Body weight 115.21 kg Belgica Vega DO Work Phone: [facility] 08-12-2022 15:35-0400 Diastolic blood pressure 92 mm[Hg] Belgica Vega DO Work Phone: [facility] 08-12-2022 15:35-0400 Heart rate 98 /min Belgica Vega DO Work Phone: [facility] 08-12-2022 15:35-0400 Systolic blood pressure 156 mm[Hg] Belgica Vega DO Work Phone: [facility] 07-01-2022 12:59-0400 Body height 177.8 cm Binh Peiffer DO Work Phone: [facility] 07-01-2022 12:59-0400 Body weight 117.94 kg Binh Peiffer DO Work Phone: [facility] 07-01-2022 12:59-0400 Respiratory rate 18 /min Binh Peiffer DO Work Phone: [facility] 06-29-2022 16:59-0400 Diastolic blood pressure 84 mm[Hg] Belgica Vega DO Work Phone: [facility] 06-29-2022 16:59-0400 Systolic blood pressure 144 mm[Hg] Belgica Vega DO Work Phone: [facility] 06-29-2022 15:58-0400 Body height 177.8 cm Belgica Vega DO Work Phone: [facility] 06-29-2022 15:58-0400 Body weight 117.48 kg Belgica Vega DO Work Phone: [facility] 06-29-2022 15:58-0400 Heart rate 92 /min Belgica Vega DO Work Phone: [facility] 06-01-2022 10:44-0500 Body height 177.8 cm Rory Mendoza MD Work Phone: [facility] 06-01-2022 10:44-0500 Body temperature 97 [degF] Rory Mendoza MD Work Phone: [facility] 06-01-2022 10:44-0500 Body weight 116.12 kg Rory Mendoza MD Work Phone: [facility] 06-01-2022 10:44-0500 Diastolic blood pressure 74 mm[Hg] Rory Mendoza MD Work Phone: [facility] 06-01-2022 10:44-0500 Heart rate 91 /min Rory Mendoza MD Work Phone: [facility] 06-01-2022 10:44-0500 SaO2% (BldA) [Mass fraction] 96 % Rory Mendoza MD Work Phone: [facility] 06-01-2022 10:44-0500 Systolic blood pressure 153 mm[Hg] Rroy Mendoza MD Work Phone: [facility] 05-18-2022 15:02-0500 Body height 177.8 cm Belgica Vega DO Work Phone: [facility] 05-18-2022 15:02-0500 Body weight 116.12 kg Belgica Vega DO Work Phone: [facility] 05-18-2022 15:02-0500 Diastolic blood pressure 85 mm[Hg] Belgica Vega DO Work Phone: [facility] 05-18-2022 15:02-0500 Heart rate 101 /min Belgica Vega DO Work Phone: [facility] 05-18-2022 15:02-0500 Systolic blood pressure 134 mm[Hg] Belgica Vega DO Work Phone: [facility] 05-04-2022 13:59-0500 Body height 177.8 cm Noé Kennedy MD Work Phone: [facility] 05-04-2022 13:59-0500 Body weight 116.12 kg Noé Kennedy MD Work Phone: [facility] 04-13-2022 16:46-0500 Diastolic blood pressure 90 mm[Hg] Belgica Vega DO Work Phone: [facility] 04-13-2022 16:46-0500 Heart rate 97 /min Belgica Vega DO Work Phone: [facility] 04-13-2022 16:46-0500 Systolic blood pressure 155 mm[Hg] Belgica Vega DO Work Phone: [facility] 04-13-2022 15:49-0500 Body height 177.8 cm Belgica Vega DO Work Phone: [facility] 04-13-2022 15:49-0500 Body weight 116.12 kg Belgica Vega DO Work Phone: [facility] 03-01-2022 15:39-0500 Diastolic blood pressure 86 mm[Hg] Belgica Vega DO Work Phone: [facility] 03-01-2022 15:39-0500 Systolic blood pressure 146 mm[Hg] Belgica Vega DO Work Phone: [facility] 03-01-2022 14:51-0500 Body height 177.8 cm Belgica Vega DO Work Phone: [facility] 03-01-2022 14:51-0500 Body weight 115.67 kg Belgica Vega DO Work Phone: [facility] 03-01-2022 14:51-0500 Heart rate 96 /min Belgica Vega DO Work Phone: [facility] 01-17-2022 14:18-0400 Body height 177.8 cm Billy Cody MD Work Phone: [facility] 01-17-2022 14:18-0400 Body weight 115.67 kg Billy Cody MD Work Phone: [facility] 01-17-2022 14:18-0400 Diastolic blood pressure 85 mm[Hg] Billy Cody MD Work Phone: [facility] 01-17-2022 14:18-0400 Heart rate 90 /min Billy Cody MD Work Phone: [facility] 01-17-2022 14:18-0400 SaO2% (BldA) [Mass fraction] 95 % Billy Cody MD Work Phone: [facility] 01-17-2022 14:18-0400 Systolic blood pressure 165 mm[Hg] Billy Cody MD Work Phone: [facility] 01-03-2022 15:20-0400 Body height 177.8 cm Belgica Vega DO Work Phone: [facility] 01-03-2022 15:20-0400 Body weight 115.67 kg Belgica Vega DO Work Phone: [facility] 01-03-2022 15:20-0400 Diastolic blood pressure 85 mm[Hg] Belgica Vega DO Work Phone: [facility] 01-03-2022 15:20-0400 Heart rate 94 /min Belgica Vega DO Work Phone: [facility] 01-03-2022 15:20-0400 Systolic blood pressure 141 mm[Hg] Belgica Vega DO Work Phone: [facility] 11-05-2021 17:01-0400 Diastolic blood pressure 94 mm[Hg] Beglica Vega DO Work Phone: [facility] 11-05-2021 17:01-0400 Heart rate 85 /min Belgica Vega DO Work Phone: [facility] 11-05-2021 17:01-0400 Systolic blood pressure 160 mm[Hg] Belgica Vega DO Work Phone: [facility] 11-05-2021 16:12-0400 Body height 177.8 cm Belgica Vega DO Work Phone: [facility] 11-05-2021 16:12-0400 Body weight 122.02 kg Belgica Vega DO Work Phone: [facility] 10-27-2021 13:41-0400 Body height 177.8 cm Noé Kennedy MD Work Phone: [facility] 10-27-2021 13:41-0400 Body weight 122.02 kg Noé Kennedy MD Work Phone: [facility] 10-05-2021 15:06-0400 Body height 177.8 cm Belgica Vega DO Work Phone: [facility] 10-05-2021 15:06-0400 Body temperature 98.2 [degF] Belgica Vega DO Work Phone: [facility] 10-05-2021 15:06-0400 Body weight 117.94 kg Belgica Vega DO Work Phone: [facility] 10-05-2021 15:06-0400 Diastolic blood pressure 80 mm[Hg] Belgica Vega DO Work Phone: [facility] 10-05-2021 15:06-0400 Heart rate 78 /min Belgica Vega DO Work Phone: [facility] 10-05-2021 15:06-0400 SaO2% (BldA) [Mass fraction] 99 % Belgica Vega DO Work Phone: [facility] 10-05-2021 15:06-0400 Systolic blood pressure 130 mm[Hg] Belgica Vega DO Work Phone: [facility] 09-20-2021 13:20-0400 Body height 177.8 cm Belgica Vega DO Work Phone: [facility] 09-20-2021 13:20-0400 Body temperature 98.29 [degF] Belgica Vega DO Work Phone: [facility] 09-20-2021 13:20-0400 Body weight 117.94 kg Belgica Vega DO Work Phone: [facility] 09-20-2021 13:20-0400 Diastolic blood pressure 84 mm[Hg] Belgica Vega DO Work Phone: [facility] 09-20-2021 13:20-0400 Heart rate 99 /min Belgica Vega DO Work Phone: [facility] 09-20-2021 13:20-0400 Systolic blood pressure 143 mm[Hg] Belgica Vega DO Work Phone: [facility] 08-11-2021 15:56-0400 Body height 177.8 cm Belgica Vega DO Work Phone: [facility] 08-11-2021 15:56-0400 Body temperature 98.29 [degF] Belgica Vega DO Work Phone: [facility] 08-11-2021 15:56-0400 Body weight 122.47 kg Belgica Vega DO Work Phone: [facility] 08-11-2021 15:56-0400 Diastolic blood pressure 79 mm[Hg] Belgica Vega DO Work Phone: [facility] 08-11-2021 15:56-0400 Heart rate 94 /min Belgica Vega DO Work Phone: [facility] 08-11-2021 15:56-0400 Systolic blood pressure 127 mm[Hg] Belgica Vega DO Work Phone: [facility] 05-28-2020 16:04-0500 Body Temperature 97.59 [degF] Belgica Herrera [facility] 05-28-2020 16:04-0500 Body weight 122.33 kg Belgica Herrera [facility] 05-28-2020 16:04-0500 Height 177.8 cm Belgica Herrera [facility] 05-28-2020 16:04-0500 Pulse Oximetry 98 % Belgica Herrera [facility] 05-28-2020 16:04-0500 Respiratory Rate 16 /min Belgica Herrera [facility] 04-27-2020 16:37-0500 BP Diastolic 90 mm[Hg] Belgica Herrera [facility] 04-27-2020 16:37-0500 BP Systolic 155 mm[Hg] Belgica [facility] 04-27-2020 16:37-0500 Pulse (Heart Rate) 86 /min Belgica [facility] 04-27-2020 15:54-0500 Body Temperature 98.6 [degF] Belgica [facility] 04-27-2020 15:54-0500 Body weight 123.11 kg Belgica [facility] 04-27-2020 15:54-0500 Height 178.5 cm Belgica [facility] 04-27-2020 15:54-0500 Pulse Oximetry 98 % Belgica [facility] 04-27-2020 15:54-0500 Respiratory Rate 18 /min Belgica [facility] 03-23-2020 15:44-0500 Body Temperature 98.01 [degF] Belgica [facility] 03-23-2020 15:44-0500 Body weight 123.29 kg [facility] 03-23-2020 15:44-0500 BP Diastolic 89 mm[Hg] [facility] 03-23-2020 15:44-0500 BP Systolic 147 mm[Hg] [facility] 03-23-2020 15:44-0500 Height 178.5 cm [facility] 03-23-2020 15:44-0500 Pulse (Heart Rate) 85 /min Belgica [facility] 03-23-2020 15:44-0500 Pulse Oximetry 97 % Belgica [facility] 03-23-2020 15:44-0500 Respiratory Rate 18 /min Belgica [facility] 02-20-2020 15:01-0500 Body Temperature 98.2 [degF] [facility] 02-20-2020 15:01-0500 Body weight 120.02 kg [facility] 02-20-2020 15:01-0500 BP Diastolic 82 mm[Hg] [facility] 02-20-2020 15:01-0500 BP Systolic 144 mm[Hg] [facility] 02-20-2020 15:01-0500 Height 178.5 cm [facility] 02-20-2020 15:01-0500 Pulse (Heart Rate) 94 /min Belgica [facility] 02-20-2020 15:01-0500 Pulse Oximetry 97 % Belgica [facility] 02-20-2020 15:01-0500 Respiratory Rate 18 /min Belgicaluca [facility] 02-14-2020 16:24-0500 Body Temperature 98.1 [degF] Belgicaluca [facility] 02-14-2020 16:24-0500 Body weight 121.02 kg [facility] 02-14-2020 16:24-0500 BP Diastolic 93 mm[Hg] [facility] 02-14-2020 16:24-0500 BP Systolic 161 mm[Hg] [facility] 02-14-2020 16:24-0500 Height 176.5 cm [facility] 02-14-2020 16:24-0500 Pulse (Heart Rate) 93 /min Belgica [facility] 02-14-2020 16:24-0500 Pulse Oximetry 97 % [facility] 02-14-2020 16:24-0500 [facility] 18 [facility] En[facility] Date Encounter Type Care Provider Facility Start: 02-10-2025 End: 02-10-2025 ambulatory BUNNY M ESTERLE Facility:[facility] Start: 02-10-2025 End: 02-10-2025 ambulatory BUNNY M ESTERLE Facility:[facility] Start: 02-04-2025 [facility] Start: 01-15-2025 [facility] Start: 11-25-2024 End: 11-29-2024 Evaluation and management of inpatient Omid Adames MD Work Phone: [facility] Comment on above: Chills (Primary Dx); Shakes; History of chronic renal failure; Elevated lactic acid level; Chronic pain syndrome Start: 10-14-2024 ambulatory Mahderecker Samlla OLS Facility:[facility] Start: 10-07-2024 End: 10-07-2024 ambulatory Brittaney LORENZO Facility:[facility] Start: 08-28-2024 End: 08-28-2024 ambulatory Brittaney Garcia MD [facility] Work Phone: Start: 08-28-2024 End: 08-28-2024 [facility] Start: 08-28-2024 End: 08-28-2024 ambulatory Brittaney LORENZO Facility:[facility] Start: 07-24-2024 End: 07-24-2024 Telephone encounter Claudia Chow LPN Work Phone: [facility] Comment on above: Home Care (Referral discarded ) Start: 07-16-2024 End: 07-16-2024 Telephone encounter Claudia Chow LPN Work Phone: [facility] Comment on above: Home Care (Confirmation Call ) Start: 07-12-2024 End: 07-12-2024 Telephone encounter Judith Cat LPN Work Phone: [facility] Comment on above: Home Care (MD to Follow) Start: 07-10-2024 End: 07-24-2024 Evaluation and management of inpatient JOSE DUDLEY Facility[facility] Start: 07-10-2024 End: 07-10-2024 Office outpatient visit 40 minutes Jose Dudley MD Work Phone: [facility] Comment on above: CKD stage G5/A3, GFR [...] Orders Only Jose Dudley MD Work Phone: [facility] Comment on above: [...] encounter Artem Ahmadi MD Work Phone: [facility] Start: 05-14-2024 End: 05-14-2024 Follow-up encounter Artem Ahmadi MD Work Phone: [facility] Start: 05-13-2024 Encounter for other preprocedural examination ARTEM AHMADI [facility] Start: 05-13-2024 ambulatory ARTEM AHMADI Facility:[facility] Start: 05-13-2024 End: 05-13-2024 Preprocedural examination done Artem Ahmadi MD Work Phone: [facility] Start: 05-13-2024 End: 05-13-2024 Subsequent hospital visit by physician Artem Ahmadi MD Work Phone: [facility] Comment on above: History of rectal cancer [Z85.048] Start: 04-27-2024 End: 08-20-2024 ambulatory Randi Eason RN [facility] Start: 04-27-2024 End: 08-20-2024 Patient encounter procedure Randi Eason RN [facility] Start: 04-26-2024 End: 04-26-2024 Telephone encounter Jose Dudley MD Work Phone: [facility] Comment on above: Results Start: 04-26-2024 End: 04-26-2024 ambulatory BUNNYAntonette SCOTT Facility:[facility] Start: 02-20-2024 End: 02-20-2024 Orders Only Artem Ahmadi MD Work Phone: [facility] Comment on above: History of rectal cancer (Primary Dx) Procedure ([facility] PY) Start: 01-24-2024 End: 01-24-2024 ambulatory [facility] [facility] Start: 01-24-2024 End: 01-24-2024 Office outpatient visit 25 minutes Jose Dudley MD Work Phone: [facility] Comment on above: Anemia of renal disease (Primary Dx); Stage 3b chronic kidney disease (HCC); Vitamin D deficiency; Other proteinuria; Chronic kidney disease-mineral and bone disorder; Diabetes mellitus with nephropathy (HCC); Dietary counseling and surveillance; Hyperkalemia; Hypertension, essential; Hyperuricemia; Secondary renal hyperparathyroidism (HCC) Start: 12-22-2023 End: 12-22-2023 Telephone encounter Noé Knenedy MD Work Phone: [facility] Start: 12-18-2023 End: 12-18-2023 Telephone encounter Artem Ahmadi MD Work Phone: [facility] Comment on above: Schedule Colonoscopy Start: 12-08-2023 End: 03-08-2024 Transcribe Orders Florentin Gutierrez MD Work Phone: [facility] Scheduling Comment on above: Other specified postprocedural states (P rimary Dx); Spinal stenosis, lumbar region with neurogenic claudication Start: 11-20-2023 End: 11-20-2023 Home visit Noé Maldonado PT Work Phone: [facility] Comment on above: PT AGENCY DC W VISIT Start: 11-17-2023 Telephone encounter Noé Maldonado PT Work Phone: [facility] Comment on above: Home Care (Unmade P.T. visit) Start: 11-17-2023 End: 11-17-2023 Home visit Simeon Hinds RN Work Phone: [facility] Comment on above: CARE COORDINATION PT UNMADE VISIT Start: 11-16-2023 End: 11-16-2023 Home visit Eda Bright RN Work Phone: [facility] Comment on above: SN DISC DC W VISIT Start: 11-15-2023 End: 11-15-2023 Home visit Nan Carrion CLEAT BLANKER Work Phone: [facility] Comment on above: AUTOMOTIVE PARTS PERSON CARE COORDINATION CARE COORDINATION Start: 11-14-2023 End: 11-14-2023 Home visit Renea Hairston GENERATION TECHNICIAN Work Phone: [facility] Comment on above: GENERATION TECHNICIAN ROUTINE AUTOMOTIVE PARTS PERSON CARE COORDINATIO N Start: 11-13-2023 End: 11-13-2023 Home visit Keyla Fernanda OT/L Work Phone: [facility] Comment on above: OT DISC DC W VISIT Start: 11-10-2023 End: 11-10-2023 Home visit Eda Bright RN Work Phone: [facility] Comment on above: SN ROUTINE Start: 11-10-2023 End: 11-10-2023 [facility] Start: 11-10-2023 End: 11-10-2023 Patient encounter procedure Bunny Oshea Clinical Communication Start: 11-09-2023 End: 11-09-2023 Home visit Renea Hairston GENERATION TECHNICIAN Work Phone: [facility] Comment on above: GENERATION TECHNICIAN ROUTINE Start: 11-07-2023 End: 11-07-2023 Home visit Eda Bright RN Work Phone: [facility] Comment on above: SN UNMADE VISIT GENERATION TECHNICIAN ROUTINE Start: 11-06-2023 End: 11-06-2023 Home visit Keyla Fernanda OT/L Work Phone: [facility] Comment on above: OT ROUTINE WITH BATH Start: 11-03-2023 End: 11-03-2023 Home visit Simeon Hinds RN Work Phone: [facility] Comment on above: CARE COORDINATION TELEPHONE CONTACT SN ROUTINE Start: 11-02-2023 End: 11-02-2023 Home visit Renea Hairston GENERATION TECHNICIAN Work Phone: [facility] Comment on above: GENERATION TECHNICIAN ROUTINE Start: 11-01-2023 End: 11-01-2023 Home visit Noé Namsoniya PT Work Phone: [facility] Comment on above: PT UNMADE VISIT Start: 10-31-2023 End: 10-31-2023 Home visit Eda Bright RN Work Phone: [facility] Comment on above: SN ROUTINE Start: 10-30-2023 End: 10-30-2023 Home visit Keyla Fernanda OT/L Work Phone: [facility] Comment on above: OT ROUTINE Start: 10-28-2023 Telephone encounter Zohaib Abel PT Work Phone: [facility] Comment on above: Erroneous encounter-disregard Start: 10-28-2023 End: 10-28-2023 Home visit Zohaib Abel PT Work Phone: [facility] Comment on above: PT EVAL Start: 10-27-2023 Telephone encounter Bunny Scott MD Work Phone: [facility] Comment on above: Home Care (Scheduling Confirmation (Eval uation visit)) Home Care (DELAY IN SERVICE) Start: 10-27-2023 End: 10-27-2023 Home visit Keyla Fernanda OT/L Work Phone: [facility] Comment on above: OT EVAL Start: 10-26-2023 End: 10-26-2023 Home visit Nan Burnelisabeth CLEAT BLANKER Work Phone: [facility] Comment on above: AUTOMOTIVE PARTS PERSON CARE COORDINATION AUTOMOTIVE PARTS PERSON EVAL SN ROUTINE Start: 10-24-2023 End: 10-24-2023 Home visit Nan Burnelisabeth CLEAT BLANKER Work Phone: [facility] Comment on above: AUTOMOTIVE PARTS PERSON CARE COORDINATION Start: 10-23-2023 End: 10-23-2023 Home visit Nan Sheyla CLEAT BLANKER Work Phone: [facility] Comment on above: AUTOMOTIVE PARTS PERSON CARE COORDINATION Start: 10-22-2023 End: 10-22-2023 Home visit Nguyen Whitaker RN Work Phone: [facility] Comment on above: SN SOC Start: 10-21-2023 Telephone encounter Nguyen Whitaker RN Work Phone: [facility] Start: 10-20-2023 Telephone encounter Bunny Scott MD Work Phone: [facility] Comment on above: Home Care Start: 10-12-2023 Telephone encounter Savannaaliya Learyosmany GARZA Work Phone: [facility] Comment on above: Home Care (MD to follow ) Home Care (Confirmat ion Call ) Start: 10-04-2023 End: 10-20-2023 Evaluation and management of inpatient BUNNY SCOTT Facility:[facility] Start: 08-01-2023 Telephone encounter Noé Kennedy MD Work Phone: Urology Start: 07-28-2023 Telephone encounter Mónica Peterson MD Work Phone: Endocrinology Comment on above: Patient Update Start: 07-12-2023 End: 07-12-2023 Patient encounter procedure Noé Kennedy MD Work Phone: Urology Comment on above: Nocturia (Primary Dx); Benign prostatic hyperplasia with nocturia; Screening PSA (prostate specific antigen) Start: 07-12-2023 End: 07-12-2023 ambulatory BUNNY SCOTT Facility:[facility] Start: 06-22-2023 End: 06-22-2023 Office outpatient visit 25 minutes Jose Dudley MD Work Phone: [facility] Comment on above: Anemia of renal disease (Primary Dx); Stage 3b chronic kidney disease (HCC); Vitamin D deficiency; Other proteinuria Start: 06-20-2023 Orders Only Jose Dudley MD Work Phone: [facility] Comment on above: Stage 3a chronic kidney disease (HCC) (P rimary Dx); Hypertension, essential; Vitamin D deficiency; Other proteinuria; Secondary hyperparathyroidism (HCC) Start: 06-12-2023 End: 06-13-2023 ambulatory BUNNY SCOTT Facility:[facility] Start: 05-23-2023 ambulatory Jen Bergman RN VNS Start: 05-23-2023 Coordination of care plan Jen Bergman RN [employer] Comment on above: [employer] Sales Manager Chronic Care (D /C Care Coordination - Non-CC PCP) Start: 05-23-2023 End: 05-23-2023 Patient encounter procedure Mónica Peterson MD Work Phone: Endocrinology Comment on above: Poorly controlled type 2 diabetes [facility]) Start: 05-19-2023 ambulatory Jen Bergman RN [employer] Comment on above: [employer] Sales Manager Chronic Care (P CC f/u) Start: 05-12-2023 Telephone encounter Catracho Davis DO Work Phone: [facility] Comment on above: Appointment Start: 03-07-2023 Telephone encounter Mark Godinez MD Work Phone: [facility] Comment on above: Appointment Start: 01-27-2023 ambulatory Jen Bergman RN [employer] Comment on above: [employer] Sales Manager Chronic Care (P CC f/u) Start: 01-23-2023 End: 01-23-2023 Patient encounter procedure Mark Godinez MD Work Phone: [facility] Comment on above: Primary osteoarthritis of left hip (Prim karin Dx) Start: 01-06-2023 Telephone encounter Mark Godinez MD Work Phone: [facility] Start: 12-23-2022 End: 12-23-2022 Patient encounter procedure Belgica Vega DO Work Phone: [facility] Comment on above: Hypertension, essential [...] Telephone encounter Belgica Vega DO Work Phone: [facility] Comment on above: Consult (Pain Management) Start: 12-01-2022 End: 12-01-2022 Subsequent hospital visit by [facility] Comment on above: OTT (dyspnea on exertion) [R06.09] Precordial pain [R07 .2] Start: 11-24-2022 ambulatory Jen Bergman RN [employer] Comment on above: [employer] Sales Manager Chronic Care (P CC f/u) Start: 11-14-2022 Telephone encounter Belgica Vega DO Work Phone: [facility] Comment on above: Medication Problem Start: 11-09-2022 Telephone encounter Candice Braun MD Work Phone: [facility] General Endocrinology, Diabetes, and Metabolism Comment on above: Appointment (New patient Referral) Start: 11-07-2022 Telephone encounter Belgica Vega DO Work Phone: [facility] Comment on above: Internal Referrals/resources (Neurology) Start: 11-04-2022 End: 11-04-2022 Patient encounter procedure Belgica Vega DO Work Phone: [facility] Comment on above: Cutaneous abscess [...] Telephone encounter Belgica Vega DO Work Phone: [facility] Comment on above: Consult (Endocrinology) Consult (Dermatology ) Appointment Start: 11-02-2022 End: 11-02-2022 Patient encounter procedure Noé Kennedy MD Work Phone: Urology Comment on above: Nocturia (Primary Dx); Benign prostatic hyperplasia with nocturia Start: 11-02-2022 Telephone encounter Belgica Brandon Je DO Work Phone: [facility] Comment on above: Results Start: 11-01-2022 Patient Outreach Jen Bergman RN [employer] Comment on above: [employer] Sales Manager Chronic Care (P CC f/u); Transition Of Care (TCM f/u) Primary Care Coordin ator Chronic Care (Pt feels sick) Start: 10-28-2022 Telephone encounter Artem Ahmadi MD Work Phone: [facility] Comment on above: Results (Surgical pathology) Start: 10-14-2022 Telephone encounter Belgica Brandon Je DO Work Phone: [facility] Comment on above: Patient Question Start: 10-13-2022 End: 10-13-2022 Patient encounter procedure Sukumar Toney MD Work Phone: [facility] [place] Comment on above: Precordial pain (Primary Dx); OTT (dyspnea on exertion); Primary hypertension; Dyslipidemia; Demand ischemia (HCC) Start: 10-12-2022 Patient Outreach Jen Bergman RN [employer] Comment on above: [employer] Sales Manager Chronic Care (P CC f/u); Transition Of Care (TCM f/u) Start: 10-10-2022 End: 10-10-2022 Patient encounter procedure Mark Godinez MD Work Phone: [facility] Comment on above: Pain in left hip (Primary Dx) Start: 10-03-2022 Patient Outreach Jen Bergman RN [employer] Comment on above: Transition Of Care (TCM f/u); Primary Ca re Coordinator Chronic Care (PCC f/u) Start: 09-29-2022 Patient Outreach Jen Bergman RN [employer] Comment on above: [employer] Sales Manager Chronic Care (P CC f/u); Transition Of Care (TCM f/u) Start: 09-28-2022 Telephone encounter Belgica Vega DO Work Phone: [facility] Comment on above: Consult (Cardio / [place] / Nephro) Start: 09-28-2022 End: 09-28-2022 Patient encounter procedure Belgica Vega DO Work Phone: [facility] Comment on above: Hospital discharge [...] encounter procedure Binh Lake DO Work Phone: [facility] Comment on above: Lumbar back pain with radiculopathy affe cting lower extremity (Primary Dx); Chronic bilateral low back pain with left-sided sciatica Start: 09-16-2022 End: 09-16-2022 Patient encounter procedure Meera Contreras OD Work Phone: [facility] Comment on above: Pseudophakia of both eyes (Primary Dx) Start: 09-05-2022 Telephone encounter Renetta Meza MD Work Phone: [facility] Comment on above: Appointment Start: 09-02-2022 End: 09-02-2022 Orders Only Artem Ahmadi MD Work Phone: [facility] Comment on above: History of rectal cancer (Primary Dx) Lumbar back pain wit h radiculopathy affecting lower extremity (Primary Dx); Chronic left hip pain; Spinal stenosis of lumbar region with neurogenic claudication; Lumbar radiculopathy; Chronic bilateral low back pain with left-sided sciatica; Spinal stenosis of lumbar region, unspecified whether neurogenic claudication present Start: 08-30-2022 ambulatory Belgica Vega DO Work Phone: [employer] Start: 08-30-2022 End: 08-30-2022 Subsequent hospital visit by physician Mri [facility] (I-Stat/Lg Bore/1.5t) [facility] Comment on above: Pain in hip [M25.559] Start: 08-30-2022 End: 08-30-2022 Subsequent hospital visit by physician Lamonte Curtis MD Work Phone: [facility] Comment on above: Pain of left hip [M25.552] Pain in hip [M25.559 ] Start: 08-15-2022 Telephone encounter Renetta Meza MD Work Phone: [facility] Comment on above: Appointment (sx) Start: 08-12-2022 End: 08-12-2022 Patient encounter procedure Belgica Vega DO Work Phone: [facility] Comment on above: Encounter for annual [...] Telephone encounter Renetta Meza MD Work Phone: [facility] Comment on above: Appointment (A-scan reminder) Start: 07-28-2022 Telephone encounter Renetta Meza MD Work Phone: [facility] Comment on above: Returning Patient's Call (r/s ascan) Start: 07-27-2022 Telephone encounter Renetta Meza MD Work Phone: [facility] Comment on above: Appointment (ascan) Start: 07-14-2022 End: 07-14-2022 Patient encounter procedure Renetta Meza MD Work Phone: [facility] Comment on above: Nuclear senile cataract of both eyes (Pr imary Dx) Start: 07-01-2022 End: 07-01-2022 Patient encounter procedure Binh Lake DO Work Phone: [facility] Comment on above: Pain in hip (Primary Dx); Lumbar back pain with radiculopathy affecting lower extremity; Chronic left hip pain Start: 06-29-2022 End: 06-29-2022 Patient encounter procedure Belgica Vega DO Work Phone: [facility] [employer] [facility] Comment on above: Hypertension, essential (Primary Dx); [...] management service Belgica Vega DO Work Phone: [facility] [employer] [facility] Comment on above: Opened In Error Start: 06-22-2022 Chart abstracting [facility] Main Work Phone: [facility] Comment on above: Psg Check In (Adult) Start: 06-01-2022 End: 06-01-2022 ambulatory Rory Mendoza MD Work Phone: [facility] Comment on above: History of rectal cancer (Primary Dx); Pulmonary nodules; Hip pain; Spinal stenosis of lumbar region with neurogenic claudication Start: 06-01-2022 End: 06-01-2022 Patient encounter procedure Rory Mendoza MD Work Phone: [facility] Start: 05-19-2022 Telephone encounter Belgica Vega DO Work Phone: [facility] Comment on above: Consult Start: 05-18-2022 End: 05-18-2022 Patient encounter procedure Belgica Vega DO Work Phone: [facility] Comment on above: Hypertension, [...] type Start: 05-11-2022 ambulatory Jen Bergman RN [employer] Comment on above: [employer] Sales Manager Chronic Care (P CC f/u) Start: 05-05-2022 Telephone encounter Renetta Meza MD Work Phone: [facility] Comment on above: eyeglass perscription Start: 05-04-2022 End: 05-04-2022 Patient encounter procedure Noé Kennedy MD Work Phone: Urology Comment on above: Nocturia; Screening PSA (prostate specific antigen); Hematuria, microscopic; Benign prostatic hyperplasia with nocturia Start: 04-26-2022 Patient Outreach Jen Bergman RN [employer] Comment on above: [employer] Sales Manager Chronic Care (P CC f/u); Transition Of Care (TCM f/u) Start: 04-21-2022 Patient Outreach Jen Bergman RN [employer] Comment on above: [employer] Sales Manager Chronic Care (P CC f/u); Transition Of Care (TCM f/u) Start: 04-13-2022 End: 04-13-2022 Patient encounter procedure Belgica Vega DO Work Phone: [facility] [employer] [facility] Comment on above: Hospital discharge follow-up [...] Start: 04-05-2022 Patient Outreach Jen Bergman RN [employer] Comment on above: Transition Of Care (AG D/C 04/01/22) Start: 03-30-2022 Telephone encounter Belgica Vega DO Work Phone: [facility] [employer] [facility] Comment on above: Consult Start: 03-23-2022 Telephone encounter Belgica Vega DO Work Phone: [facility] Comment on above: Results Start: 03-17-2022 Patient Outreach Jen Bergman RN [employer] Comment on above: Transition Of Care (TCM f/u); Primary Ca re Coordinator Chronic Care (PCC f/u) Start: 03-11-2022 Patient Outreach Jen Bergman RN [employer] Comment on above: [employer] Sales Manager Chronic Care (P CC f/u); Transition Of Care (TCM f/u) Start: 03-10-2022 Telephone encounter Belgica Roma Vega DO Work Phone: [facility] Comment on above: Patient Update Start: 03-01-2022 End: 03-01-2022 Patient encounter procedure Belgica Brandon Je DO Work Phone: [facility] Comment on above: Hypertension, [...] Telephone encounter Belgica Vega DO Work Phone: [facility] Comment on above: Consult Start: 02-23-2022 Telephone encounter Artem Ahmadi MD Work Phone: [facility] Comment on above: Appointment Start: 02-21-2022 ambulatory Jen Bergman RN VNS Start: 02-21-2022 Chart abstracting Janie Pickett APRN.ACCELERATOR TECHNICIAN Work Phone: [facility] General Endocrinology Comment on above: Transition Of Care (SNF status - SNF D/C 02/15/22); [employer] Sales Manager Chronic Care (PCC f/u) Start: 02-21-2022 Telephone encounter Janie Pickett APRN.ACCELERATOR TECHNICIAN Work Phone: [facility] General Endocrinology Comment on above: No Show Start: 01-28-2022 Patient Outreach Jen Bergman RN [employer] Comment on above: Transition Of Care (CC Zoroastrian D/C to S NF 01/27/22) Start: 01-20-2022 End: 01-27-2022 Evaluation and management of inpatient ANTOINE OLIVAS Facility:[facility] Start: 01-19-2022 Admission to [facility] Keyla Page [facility] Start: 01-19-20[facility] Comment on above: Behavioral Problem Start: 01-18-2022 ambulatory Jen Bergman RN AG VNS Start: 01-18-2022 Follow-up encounter Jen Bergman RN AG [employer] Comment on above: [employer] Sales Manager Hospital Follow Up (Hospital admit - SBAR) Start: 01-17-2022 End: 01-20-2022 Evaluation and management of inpatient BELGICA Roma VEGA Facility:[facility] Start: 01-17-2022 End: 01-17-2022 Patient encounter [...] Start: 01-17-2022 Admission to establishment Lyndsay Pee [facility] Start: 01-17-2022 End: 01-17-2022 ambulatory Lyndsay Glasgow [facility] Behavioral Health Intake Comment on above: Psychiatric Problem Start: 01-14-2022 Telephone encounter Renetta Meza MD Work Phone: [facility] Comment on above: Appointment Appointment (A-scan reminder); Surgery Cancelled (Per Patient) Start: 01-07-2022 ambulatory Jen Bergman RN AG [employer] Comment on above: [employer] Sales Manager Chronic Care (P CC f/u) Start: 01-03-2022 End: 01-03-2022 Patient encounter procedure Belgica Vega DO Work Phone: [facility] Comment on above: Hypertension, essential [...] anger Start: 12-28-2021 ambulatory Jen Bergman RN [employer] Comment on above: [employer] Sales Manager Chronic Care (P CC f/u) Start: 12-20-2021 Chart abstracting Billy Cody MD Work Phone: [facility] Start: 12-03-2021 ambulatory Jen Bergman RN [employer] Comment on above: [employer] Sales Manager Chronic Care (P CC f/u) Start: 11-30-2021 Telephone encounter Renetta Meza MD Work Phone: [facility] Comment on above: Schedule Surgery (Phaco Right Eye) Start: 11-22-2021 Telephone encounter Renetta Meza MD Work Phone: [facility] Comment on above: Letter Start: 11-09-2021 Telephone encounter Renetta Meza MD Work Phone: [facility] Comment on above: Schedule Surgery (Phaco Right Eye) Start: 11-05-2021 End: 11-05-2021 Patient encounter procedure Belgica Vega DO Work Phone: [facility] Comment on above: Hypertension, essential [...] eyes Start: 11-01-2021 ambulatory Jen Bergman RN [employer] Comment on above: [employer] Sales Manager Chronic Care (P CC f/u) Start: 10-27-2021 End: 10-27-2021 Patient encounter procedure Noé Kennedy MD Work Phone: Urology Comment on above: Benign prostatic hyperplasia with noctur ia (Primary Dx); Hematuria, microscopic; Screening PSA (prostate specific antigen); Nocturia Start: 10-26-2021 Telephone encounter Belgica Vega DO Work Phone: [facility] Comment on above: Follow Up Phone Call (called pt mailbox full mailed letter) Start: 10-14-2021 Telephone encounter Artem Ahmadi MD Work Phone: [facility] Comment on above: Schedule Surgery Start: 10-05-2021 End: 10-05-2021 Patient encounter procedure Belgica Vega DO Work Phone: [facility] Comment on above: Abscess of neck [...] encounter Belgica Vega DO Work Phone: [facility] Comment on above: Internal Referrals/resources (Nephrology ) Start: 09-20-2021 Telephone encounter Belgica Vega DO Work Phone: [facility] Comment on above: Internal Referrals/resources [...] retinopathy Start: 09-17-2021 ambulatory Jen Bergman RN [employer] Comment on above: [employer] Sales Manager Chronic Care (P CC f/u) Start: 09-08-2021 Patient Outreach Jen Bergman RN [employer] Comment on above: Transition Of Care (ED D/C 09/07/21); Prim karin [employer]al Roller - Patient Initiated (Received call from pt) Start: 09-06-2021 ambulatory Jen Bergman RN [employer] Comment on above: [employer] Sales Manager Chronic Care (P CC f/u) Start: 08-27-2021 Chart abstracting Janie Pickett APRN.CNP Work Phone[facility] Start: 08-13-2021 Telephone encounter Artem Ahmadi MD Work Phone: [facility] Comment on above: [...] Subsequent hospital visit by physician Mri 2 [facility] (I-Stat/1.5t) [facility] Comment on above: Neoplasm: colorectal, rx monitor or foll ow up Start: 08-05-2021 ambulatory Jen Bergman RN [employer] Comment on above: [employer] Sales Manager Chronic Care (P CC f/u) Start: 07-23-2021 Refill Belgica Vega DO Work Phone: [employer] Comment on above: [employer] Sales Manager Chronic Care (R efill) Start: 07-22-2021 ambulatory Jen Bergman RN [employer] Comment on above: [employer] Sales Manager Chronic Care (P CC f/u) Start: 07-06-2021 Telephone encounter Belgica Vega DO Work Phone: [facility] Comment on above: Results; Appointment; Patient Update Start: 07-01-2021 Chart abstracting Janie Pickett APRN.CNP Work Phone: [facility] General Endocrinology Start: 09-10-2020 End: 09-10-2020 Subsequent hospital visit by physician [facility](I-Stat/Lg Bore/1.5t) Work Phone: Radiology Comment on above: Malignant neoplasm of rectum (HCC) [C20] Start: 05-30-2020 End: 05-30-2020 Patient encounter procedure Aron Reynolds Work Phone: [facility] Start: 05-30-2020 Results Only Aron Reynolds Work Phone: [facility] Start: 05-29-2020 End: 05-29-2020 Patient encounter procedure [facility] Provider [facility] Start: 05-29-2020 Results Only [facility] Provider [facility] Department Start: 05-29-2020 End: 05-29-2020 Telephone encounter Belgica Herrera Work Phone: [facility] Comment on above: Patient Update (Neurology referral, no n umber on file for the patient) Start: 05-28-2020 End: 05-28-2020 Patient encounter procedure Belgica Herrera Work Phone: [facility] Comment on above: Hypertension, essential (Primary Dx); Chronic nausea; Myalgia; Marijuana use; Drooling; Chronic vertigo; Screening for diabetic retinopathy; Glucosuria; Uncontrolled type 2 diabetes mellitus with hyperglycemia (HCC); Primary osteoarthritis of left shoulder; Mixed hyperlipidemia Start: 05-28-2020 End: 05-28-2020 Patient encounter procedure Juancho Smithw-S) Marichuy Work Phone: [facility] (Julio César) Comment on above: Severe episode of recurrent major depres sive disorder, without psychotic features (HCC) (Primary Dx); Anxiety disorder, unspecified type Start: 05-14-2020 End: 05-14-2020 Telephone encounter Belgica Herrera Work Phone: [facility] Comment on above: Results Start: 05-14-2020 End: 05-14-2020 Subsequent hospital visit by physician Xr [place] [facility] Comment on above: Left shoulder pain, unspecified chronici ty [M25.512] Start: 05-06-2020 End: 05-06-2020 Telephone encounter Belgica Herrera Work Phone: [facility] Comment on above: Patient Update Start: 05-05-2020 End: 05-05-2020 Patient encounter procedure Carla Tripathi Work Phone: [facility] Comment on above: Chronic bilateral low back pain, unspeci fied whether sciatica present (Primary Dx); Weakness; Decreased mobility and endurance Start: 04-27-2020 End: 04-27-2020 Patient encounter procedure Belgica Herrera Work Phone: [facility] Comment on above: Uncontrolled hypertension (Primary Dx); Diabetes mellitus due to underlying condition, uncontrolled, with hyperglycemia (HCC); Mixed hyperlipidemia; Marijuana use; Chronic bilateral low back pain with sciatica, sciatica laterality unspecified; Lumbar radiculopathy; Dysuria; Fall (on) (from) other stairs and steps, initial encounter; Left shoulder pain, unspecified chronicity Start: 03-23-2020 End: 03-23-2020 Patient encounter procedure Belgica Herrera Work Phone: [facility] Comment on above: Uncontrolled hypertension (Primary Dx); Diabetes mellitus due to underlying condition, uncontrolled, with hyperglycemia (HCC); Vitamin D deficiency; Obesity, Class II, BMI 35-39.9; Mixed hyperlipidemia; Encounter for immunization; Diabetic peripheral neuropathy associated with type 2 diabetes mellitus (HCC) Start: 03-03-2020 End: 03-03-2020 Telephone encounter Belgica Herrera Work Phone: [facility] Comment on above: Medication Problem Start: 02-28-2020 End: 02-28-2020 Telephone encounter Belgica Herrera Work Phone: [facility] Comment on above: Consult Start: 02-21-2020 End: 02-21-2020 Patient encounter procedure [facility] Provider [facility] Start: 02-21-2020 Results Only [facility] Provider [facility] Department Start: 02-21-2020 End: 02-21-2020 Telephone encounter Bunny Giraldo [facility] Comment on above: Consult (CONSULTS TO ENT AND OPTHALMOLOG Y) Start: 02-20-2020 End: 02-20-2020 Patient encounter procedure Belgica Herrera Work Phone: [facility] Comment on above: Uncontrolled hypertension [...] Telephone encounter Belgica Brandon Javier Work Phone: [facility] Comment on above: Results Start: 02-17-2020 End: 02-17-2020 Telephone encounter Bunny Josseline Kristal [facility] Comment on above: Appointment (CONSULT TO ORTHO PLACED) Results Appointment (CONSULT TO PHYSICAL THERAPY PLACED) Start: 02-17-2020 End: 02-17-2020 Subsequent hospital visit by physician [facility] Comment on above: Chronic bilateral low back pain with sci atica, sciatica laterality unspecified [M54.40, G89.29] Start: 02-14-2020 End: 02-14-2020 Patient encounter procedure Belgica Brandon Javier Work Phone: [facility] Comment on above: Routine physical [...] 11-27-2024 LEGIONELLA AND STREPTOCOCCUS URINE ANTIGEN, ORDERABLE lFori Hills MD Work Phone: Start: 11-27-2024 URINE HOLD CUP Flori Hills MD Work Phone: Start: 11-27-2024 Urnls dip stick/tablet reagent auto microscopy Omid Adames MD Work Phone: Start: 11-27-2024 Iaad ia hepatitis b surface antigen Ailyn Christy HEALTH PLAN SPECIALIST - ACCELERATOR TECHNICIAN Work Phone: Start: 11-27-2024 End: 11-27-2024 Drug [...] ia hepatitis b surface antigen Ailyn Christy HEALTH PLAN SPECIALIST - ACCELERATOR TECHNICIAN Work Phone: Start: 11-26-2024 Glucose quantitative blood [...] Work Phone: Start: 07-24-2020 Colonoscopy Janie Pickett APRN.ACCELERATOR TECHNICIAN Work Phone: Start: 05-30-2020 PT ED PATIENT INFORMATION Aron Marques i Work Phone: Start: 05-29-2020 CARDIAC [...] DTaP/Tdap/Td Vaccines (2 - Td or Tdap) [facility] Start: 10-19-2030 Urine microalbumin profile [facility] Start: 11-02-2027 PROSTATE CANCER SCREENING DISCUSSION PROSTATE CANCER SCREENING DISCUSSION [facility] Start: 11-02-2027 Prostate specific antigen measurement Prostate Cancer Screening Discussion [facility] Start: 05-13-2027 Screening for malignant neoplasm of colon [facility] Start: 01-19-2027 PROSTATE CANCER SCREENING DISCUSSION PROSTATE CANCER SCREENING DISCUSSION [facility] Start: 07-05-2026 PROSTATE CANCER SCREENING DISCUSSION PROSTATE CANCER SCREENING DISCUSSION [facility] Start: 04-09-2026 PROSTATE CANCER SCREENING DISCUSSION PROSTATE CANCER SCREENING DISCUSSION [facility] Start: 11-29-2025 Diabetes: Estimated Glomerular Filtration Rate for Kidney Health Diabetes: Estimated Glomerular Filtration Rate for Kidney Health [facility] Start: 11-26-2025 Hemoglobin A1c measurement Diabetes: Hemoglobin A1C [facility] Start: 07-24-2025 Complete blood count Hemoglobin/Hematocrit [facility] Start: 07-24-2025 Creatinine measurement Serum Creatinine [facility] Start: 07-16-2025 Complete blood count Hemoglobin/Hematocrit [facility] Start: 07-16-2025 Creatinine measurement Serum Creatinine [facility] Start: 07-12-2025 Complete blood count Hemoglobin/Hematocrit [facility] Start: 07-12-2025 Creatinine measurement Serum Creatinine [facility] Start: 07-11-2025 Diabetes: Urine Albumin-Creatinine Ratio for Kidney [facility] Diabetes: Urine Albumin-Creatinine Ratio for Kidney Health [facility] Start: 07-10-2025 Complete blood count Hemoglobin/Hematocrit [facility] Start: 07-10-2025 Creatinine measurement Serum Creatinine [facility] Start: 05-13-2025 Complete blood count Hemoglobin/Hematocrit [facility] Start: 05-13-2025 Screening for malignant neoplasm of colon [facility] Start: 04-26-2025 Complete blood count Hemoglobin/Hematocrit [facility] Start: 04-26-2025 Creatinine measurement Serum Creatinine [facility] Start: 04-26-2025 Diabetes: Estimated Glomerular Filtration Rate for Kidney Health Diabetes: Estimated Glomerular Filtration Rate for Kidney Health [facility] Start: 02-16-2025 LIPID SCREEN LIPID SCREEN [facility] Start: 02-16-2025 PROSTATE CANCER SCREENING DISCUSSION PROSTATE CANCER SCREENING DISCUSSION [facility] Start: 01-23-2025 Complete blood count Hemoglobin/Hematocrit [facility] Start: 01-23-2025 Creatinine measurement Serum Creatinine [facility] Start: 01-23-2025 Diabetes: Urine Albumin-Creatinine Ratio for Kidney Health Diabetes: Urine Albumin-Creatinine Ratio for Kidney Health [facility] Start: 12-28-2024 Glaucoma screening [facility] Start: 2024 Influenza vaccination [facility] Start: 11-05-2024 BP Controlled (<130/80) BP Controlled (<130/80) [facility] in Start: 10-17-2024 Complete blood count Hemoglobin/Hematocrit [facility] Start: 10-17-2024 Creatinine measurement Serum Creatinine [facility] Start: 10-17-2024 Diabetes: Estimated Glomerular Filtration Rate for Kidney Health Diabetes: Estimated Glomerular Filtration Rate for Kidney Health [facility] Start: 10-09-2024 End: 10-09-2024 Patient encounter procedure 10/09/2024 3:45 PM EDT Office Visit [facility] [place] [address] [facility] [address] [place] [address] Jose Dudley MD [address] [facility] [address] [place], [place] [id number] follow-up 3m [facility] OR Comment on above: follow-up Start: 10-09-2024 End: 07-10-2025 25-hydroxyvitamin D3 [Mass/volume] in Serum or Plasma VITAMIN D 25 HYDROXY Lab Routine Vitamin D deficiency Expected: 10/09/2024, Expires: 07/10/2025 [facility] Comment on above: Expected: 10/09/2024, Expires: Start: 10-09-2024 End: 07-10-2025 CBC W Auto Differential panel - Blood COMPLETE BLOOD COUNT AND DIFFERENTIAL Lab Routine Anemia of renal disease Expected: 10/09/2024, Expires: 07/10/2025 [facility] Work Phone: Comment on above: Expected: 10/09/2024, Expires: Start: 10-09-2024 End: 07-10-2025 Magnesium [Mass/volume] in Serum or Plasma MAGNESIUM Lab Routine Stage 5 chronic kidney disease not on chronic dialysis (HCC) Expected: 10/09/2024, Expires: 07/10/2025 [facility] Comment on above: Expected: 10/09/2024, Expires: Start: 10-09-2024 End: 01-08-2025 Microalbumin/Creatinine [Mass Ratio] in Urine ALBUMIN/CREATININE RATIO, URINE Lab Routine Other proteinuria Expected: 10/09/2024, Expires: 01/08/2025 [facility] Comment on above: Expected: 10/09/2024, Expires: Start: 10-09-2024 End: 07-10-2025 Parathyrin.intact [Mass/volume] in Serum or Plasma PTH INTACT Lab Routine Stage 5 chronic kidney disease not on chronic dialysis (HCC) Expected: 10/09/2024, Expires: 07/10/2025 [facility] Comment on above: Expected: 10/09/2024, Expires: Start: 10-09-2024 End: 07-10-2025 Renal function 2000 panel - Serum or Plasma RENAL FUNCTION PANEL Lab Routine Stage 5 chronic kidney disease not on chronic dialysis (HCC) Expected: 10/09/2024, Expires: 07/10/2025 [facility] Comment on above: Expected: 10/09/2024, Expires: Start: 10-09-2024 End: 07-10-2025 Urate [Mass/volume] in Serum or Plasma URIC ACID Lab Routine Stage 5 chronic kidney disease not on chronic dialysis (HCC) Expected: 10/09/2024, Expires: 07/10/2025 [facility] Comment on above: Expected: 10/09/2024, Expires: Start: 10-09-2024 End: 01-08-2025 Urinalysis complete panel - Urine URINALYSIS, WITH MICROSCOPIC Lab Routine Stage 5 chronic kidney disease not on chronic dialysis (HCC) Expected: 10/09/2024, Expires: 01/08/2025 [facility] Comment on above: Expected: 10/09/2024, Expires: Start: 10-08-2024 Complete blood count Hemoglobin/Hematocrit [facility] Start: 10-08-2024 Creatinine measurement Serum Creatinine [facility] Start: 10-05-2024 Hemoglobin A1c measurement Diabetes: Hemoglobin A1C [facility] Start: 09-30-2024 Diabetes: Estimated Glomerular Filtration Rate for Kidney Health Diabetes: Estimated Glomerular Filtration Rate for Kidney Health [facility] Start: 09-27-2024 End: 09-27-2024 Patient encounter procedure 09/27/2024 2:45 PM EDT Office Visit [facility] [address] [place] [address] Renetta Meza MD [address] [place] [address] RTC 9 months diabetic check [facility] Comment on above: RTC 9 months diabetic check Start: 07-24-2024 End: 10-23-2024 25-hydroxyvitamin D3 [Mass/volume] in Serum or Plasma VITAMIN D 25 HYDROXY Lab Routine Stage 3b chronic kidney disease (HCC) Vitamin D deficiency Expected: 07/24/2024, Expires: 10/23/2024 [facility] Comment on above: Expected: 07/24/2024, Expires: Start: 07-24-2024 End: 10-23-2024 CBC W Auto Differential panel - Blood COMPLETE BLOOD COUNT AND DIFFERENTIAL Lab Routine Anemia of renal disease Stage 3b chronic kidney disease (HCC) Expected: 07/24/2024, Expires: 10/23/2024 [facility] Comment on above: Expected: 07/24/2024, Expires: Start: 07-24-2024 End: 10-23-2024 Magnesium [Mass/volume] in Serum or Plasma MAGNESIUM Lab Routine Stage 3b chronic kidney disease (HCC) Expected: 07/24/2024, Expires: 10/23/2024 [facility] Comment on above: Expected: 07/24/2024, Expires: Start: 07-24-2024 End: 10-23-2024 Microalbumin/Creatinine [Mass Ratio] in Urine ALBUMIN/CREATININE RATIO, URINE Lab Routine Stage 3b chronic kidney disease (HCC) Other proteinuria Expected: 07/24/2024, Expires: 10/23/2024 [facility] Comment on above: Expected: 07/24/2024, Expires: Start: 07-24-2024 End: 10-23-2024 Parathyrin.intact [Mass/volume] in Serum or Plasma PTH INTACT Lab Routine Stage 3b chronic kidney disease (HCC) Expected: 07/24/2024, Expires: 10/23/2024 [facility] Comment on above: Expected: 07/24/2024, Expires: Start: 07-24-2024 End: 10-23-2024 Renal function 2000 panel - Serum or Plasma RENAL FUNCTION PANEL Lab Routine Stage 3b chronic kidney disease (HCC) Expected: 07/24/2024, Expires: 10/23/2024 [facility] Comment on above: Expected: 07/24/2024, Expires: Start: 07-24-2024 End: 10-23-2024 Urate [Mass/volume] in Serum or Plasma URIC ACID Lab Routine Stage 3b chronic kidney disease (HCC) Expected: 07/24/2024, Expires: 10/23/2024 [facility] Comment on above: Expected: 07/24/2024, Expires: Start: 07-24-2024 End: 10-23-2024 Urinalysis complete panel - Urine URINALYSIS, WITH MICROSCOPIC Lab Routine Stage 3b chronic kidney disease (HCC) Expected: 07/24/2024, Expires: 10/23/2024 [facility] Comment on above: Expected: 07/24/2024, Expires: Start: 07-12-2024 End: 07-12-2024 Renal biopsy prq trocar/needle BIOPSY KIDNEY PERCUTANEOUS Kidney disease 07/12/2024 1:53 PM EDT ME IR Start: 07-11-2024 End: 10-10-2024 PSA/PROSTATE SPECIFIC ANTIGEN SCREENING PSA/PROSTATE SPECIFIC ANTIGEN SCREENING Lab Routine Nocturia Benign prostatic hyperplasia with nocturia Screening PSA (prostate specific antigen) Expected: 07/11/2024 (Approximate), Expires: 10/10/2024 [facility] Work Phone: Comment on above: Expected: 07/11/2024 (Approximate), Expi res: 10/10/2024 Start: 07-10-2024 End: 07-10-2024 Patient encounter procedure [facility] Comment on above: 6 mo f/u Start: 07-04-2024 End: 10-03-2024 25-hydroxyvitamin D3 [Mass/volume] in Serum or Plasma VITAMIN D 25 HYDROXY Lab Routine Stage 3b chronic kidney disease (HCC) Vitamin D deficiency Expected: 07/04/2024, Expires: 10/03/2024 [facility] Comment on above: Expected: 07/04/2024, Expires: Start: 07-04-2024 End: 10-03-2024 CBC W Auto Differential panel - Blood COMPLETE BLOOD COUNT AND DIFFERENTIAL Lab Routine Anemia of renal disease Stage 3b chronic kidney disease (HCC) Expected: 07/04/2024, Expires: 10/03/2024 [facility] Comment on above: Expected: 07/04/2024, Expires: Start: 07-04-2024 End: 10-03-2024 Magnesium [Mass/volume] in Serum or Plasma MAGNESIUM Lab Routine Stage 3b chronic kidney disease (HCC) Expected: 07/04/2024, Expires: 10/03/2024 [facility] Comment on above: Expected: 07/04/2024, Expires: Start: 07-04-2024 End: 10-03-2024 Microalbumin/Creatinine [Mass Ratio] in Urine ALBUMIN/CREATININE RATIO, URINE Lab Routine Stage 3b chronic kidney disease (HCC) Other proteinuria Expected: 07/04/2024, Expires: 10/03/2024 [facility] Work Phone: Comment on above: Expected: 07/04/2024, Expires: Start: 07-04-2024 End: 10-03-2024 Parathyrin.intact [Mass/volume] in Serum or Plasma PTH INTACT Lab Routine Stage 3b chronic kidney disease (HCC) Chronic kidney disease-mineral and bone disorder Expected: 07/04/2024, Expires: 10/03/2024 [facility] Comment on above: Expected: 07/04/2024, Expires: Start: 07-04-2024 End: 10-03-2024 Renal function 2000 panel - Serum or Plasma RENAL FUNCTION PANEL Lab Routine Stage 3b chronic kidney disease (HCC) Expected: 07/04/2024, Expires: 10/03/2024 [facility] Comment on above: Expected: 07/04/2024, Expires: Start: 07-04-2024 End: 10-03-2024 Urate [Mass/volume] in Serum or Plasma URIC ACID Lab Routine Stage 3b chronic kidney disease (HCC) Expected: 07/04/2024, Expires: 10/03/2024 [facility] Comment on above: Expected: 07/04/2024, Expires: Start: 07-04-2024 End: 10-03-2024 Urinalysis complete panel - Urine URINALYSIS, WITH MICROSCOPIC Lab Routine Stage 3b chronic kidney disease (HCC) Other proteinuria Expected: 07/04/2024, Expires: 10/03/2024 [facility] Comment on above: Expected: 07/04/2024, Expires: Start: 06-12-2024 Creatinine measurement Serum Creatinine [facility] Start: 06-03-2024 Complete blood count Hemoglobin/Hematocrit [facility] Start: 05-24-2024 Diabetes: Urine Albumin-Creatinine Ratio for Kidney Health Diabetes: Urine Albumin-Creatinine Ratio for Kidney Health [facility] Start: 05-24-2024 Hepatitis B screening Urine Albumin:Creatinine Ratio [facility] Start: 05-23-2024 Complete blood count Hemoglobin/Hematocrit [facility] Start: 05-23-2024 Creatinine measurement Serum Creatinine [facility] Start: 05-13-2024 End: 05-13-2024 Patient encounter procedure [facility] Start: 04-07-2024 Hemoglobin A1c measurement HbA1C [facility] Start: 04-03-2024 Medicare Advantage Annual Wellness Visit Medicare Advantage Annual Wellness Visit [facility] Start: 01-24-2024 End: 01-24-2024 Patient encounter procedure 01/24/2024 1:30 PM EDT Office Visit [facility] [place] [address] [facility] [address] [place] [address] Jose Dudley MD [address] [address] [place], [place] [id number] 4 mo f/u [facility] OR Comment on above: 4 mo f/u Start: 01-22-2024 End: 01-22-2024 Patient encounter procedure 01/22/2024 1:45 PM EDT Office Visit Urology [address] [place] [address] Noé Kennedy MD [address] [place] [address] 6 month folllow up psa prior Urology Comment on above: 6 month folllow up psa prior Start: 01-19-2024 End: 04-19-2024 25-hydroxyvitamin D3 [Mass/volume] in Serum or Plasma VITAMIN D 25 HYDROXY Lab Routine Anemia of renal disease Stage 3b chronic kidney disease (HCC) Vitamin D deficiency Other proteinuria Expected: 01/19/2024, Expires: 04/19/2024 [facility] Comment on above: Expected: 01/19/2024, Expires: Start: 01-19-2024 End: 04-19-2024 CBC W Auto Differential panel - Blood COMPLETE BLOOD COUNT AND DIFFERENTIAL Lab Routine Anemia of renal disease Stage 3b chronic kidney disease (HCC) Vitamin D deficiency Other proteinuria Expected: 01/19/2024, Expires: 04/19/2024 [facility] Comment on above: Expected: 01/19/2024, Expires: Start: 01-19-2024 End: 04-19-2024 Magnesium [Mass/volume] in Serum or Plasma MAGNESIUM Lab Routine Anemia of renal disease Stage 3b chronic kidney disease (HCC) Vitamin D deficiency Other proteinuria Expected: 01/19/2024, Expires: 04/19/2024 [facility] Comment on above: Expected: 01/19/2024, Expires: Start: 01-19-2024 End: 04-19-2024 Microalbumin/Creatinine [Mass Ratio] in Urine ALBUMIN/CREATININE RATIO, URINE Lab Routine Anemia of renal disease Stage 3b chronic kidney disease (HCC) Vitamin D deficiency Other proteinuria Expected: 01/19/2024, Expires: 04/19/2024 [facility] Work Phone: Comment on above: Expected: 01/19/2024, Expires: Start: 01-19-2024 End: 04-19-2024 Parathyrin.intact [Mass/volume] in Serum or Plasma PTH INTACT Lab Routine Anemia of renal disease Stage 3b chronic kidney disease (HCC) Vitamin D deficiency Other proteinuria Expected: 01/19/2024, Expires: 04/19/2024 [facility] Comment on above: Expected: 01/19/2024, Expires: Start: 01-19-2024 End: 04-19-2024 Renal function 2000 panel - Serum or Plasma RENAL FUNCTION PANEL Lab Routine Anemia of renal disease Stage 3b chronic kidney disease (HCC) Vitamin D deficiency Other proteinuria Expected: 01/19/2024, Expires: 04/19/2024 [facility] Comment on above: Expected: 01/19/2024, Expires: Start: 01-19-2024 End: 04-19-2024 Urate [Mass/volume] in Serum or Plasma URIC ACID Lab Routine Anemia of renal disease Stage 3b chronic kidney disease (HCC) Vitamin D deficiency Other proteinuria Expected: 01/19/2024, Expires: 04/19/2024 [facility] Comment on above: Expected: 01/19/2024, Expires: Start: 01-19-2024 End: 04-19-2024 Urinalysis complete panel - Urine URINALYSIS, WITH MICROSCOPIC Lab Routine Anemia of renal disease Stage 3b chronic kidney disease (HCC) Vitamin D deficiency Other proteinuria Expected: 01/19/2024, Expires: 04/19/2024 [facility] Comment on above: Expected: 01/19/2024, Expires: Start: 01-08-2024 End: 04-08-2024 PSA/PROSTATE SPECIFIC ANTIGEN SCREENING PSA/PROSTATE SPECIFIC ANTIGEN SCREENING Lab Routine Nocturia Benign prostatic hyperplasia with nocturia Screening PSA (prostate specific antigen) Expected: 01/08/2024 (Approximate), Expires: 04/08/2024 [facility] Work Phone: Comment on above: Expected: 01/08/2024 (Approximate), Expi res: 04/08/2024 Start: 12-30-2023 Glaucoma screening Dilated Retinal Exam [facility] Start: 12-30-2023 Hepatitis C antibody, confirmatory test Dilated Retinal Exam [facility] Start: 12-29-2023 End: 12-29-2023 Patient encounter procedure 12/29/2023 2:45 PM EDT Office Visit [facility] [address] [facility] [address] Renetta Meza MD [address] [place] [address] RTC 9 months diabetic check [facility] Comment on above: RTC 9 months diabetic check Start: 12-24-2023 Annual PCP Team Chronic Disease Visit Annual PCP Team Chronic Disease Visit [facility] Start: 12-03-2023 Covid-19 Vaccine ( season) Covid-19 Vaccine () [facility] Start: 12-03-2023 Covid-19 Vaccine () Covid-19 Vaccine () [facility] Start: 12-03-2023 Influenza vaccination [facility] Start: 11-21-2023 End: 11-21-2023 Home visit 11/21/2023 2:30 PM EDT OT/PT/Speech Visit [facility] [address] [place] [address] Zafar Aguilar, PT, DPT Post l[facility]ctomy/D[facility] Comment on above: Post l[facility]ctomy/D/[facility] Start: 11-16-2023 End: 11-16-2023 Home visit [facility] Comment on above: [id number] [place] post laminectomy. DM Wound has a slight amount of drainage, pt on cephalexin. Wound assessment. ?disc dc vs agency dc? Check on therapy plan. Start: 11-10-2023 End: 11-10-2023 Home visit [facility] Comment on above: [id number] [place] post laminectomy. DM Wound has a slight amount of drainage, pt was on cephalexin. Wound assessment. Next to last SN vs, check on therapy plan. ?NOMNC? Start: 11-07-2023 End: 11-07-2023 Home visit [facility] Comment on above: [id number] [place] post laminectomy. DM Wound has a slight amount of drainage, pt on cephalexin. Wound assessment. Please see SOC notes for full info. Start: 11-05-2023 ANNUAL PCP TEAM CHRONIC DISEASE VISIT ANNUAL PCP TEAM CHRONIC DISEASE VISIT [facility] Start: 11-03-2023 End: 11-03-2023 Home visit [facility] Comment on above: [id number] [place] post laminectomy. DM Wound has a slight amount of drainage, pt was on cephalexin. Wound assessment. Please see SOC notes for full info. Start: 11-02-2023 Complete blood count Hemoglobin/Hematocrit [facility] Start: 11-02-2023 Creatinine measurement Serum Creatinine [facility] Start: 11-02-2023 HEMOGLOBIN/HEMATOCRIT HEMOGLOBIN/HEMATOCRIT [facility] Start: 11-02-2023 Hepatitis B surface antibody level LDL CHOLESTEROL [facility] Start: 11-02-2023 SERUM CREATININE SERUM CREATININE [facility] Start: 10-31-2023 End: 10-31-[address] [facility] Comment on above: [id number] [place] post laminectomy. DM Wound has a slight amount of drainage, pt was on cephalexin. Wound assessment. Please see SOC notes for full info. Start: 10-30-2023 End: 10-30-2023 Patient encounter procedure 10/30/2023 11:00 AM EDT Office Visit Endocrinology [id number] [place] [address] Ginny Montalvo, HEALTH PLAN SPECIALIST.ACCELERATOR TECHNICIAN [address] [place] [address] diabetes follow up Endocrinology Comment on above: diabetes follow up Start: 10-28-2023 End: 10-28-2023 Home visit 10/28/2023 12:00 PM EDT Home Care Visit [facility] [address] [place] [address] Zohaib Abel, PT [address] [place] [address] CONFIRMED FOR SAT 10/27 PTE 10/22-10/26 - KNUP, DELAY CALL MADE Confirmed 11:30 to 12 [facility] Comment on above: CONFIRMED FOR SAT 10/27 - [id number] PTE 10/02 2-10/26 - KNUP, DELAY CALL MADE Confirmed 11:30 to 12 Start: 10-27-2023 End: 10-27-[address] [facility] Comment on above: [id number] PTE - KNUPP [id number] OTE 6 - FERNANDA Start: 10-26-2023 End: 10-26-[address] [facility] Comment on above: [id number] [place] post laminectomy. Wound bartholomew s a slight amount of drainage, pt on cephalexin. Wound assessment and labs due. Please see SOC notes for full info. Start: 10-25-2023 End: 10-25-[address] [facility] Comment on above: [id number] OTE PASS TO T. FERNANDA [id number] PTE [place] Start: 10-24-2023 End: 10-24-[address] [facility] Comment on above: [id number] PTE [place] [id number] OTE Start: 10-23-2023 End: 10-23-2023 Home visit [facility] Comment on above: [id number] PTE [id number] OTE [id number] [employer] P[employer] [id number] Start: 10-22-2023 Hepatitis C antibody, confirmatory test DILATED RETINAL EXAM [facility] Start: 10-22-2023 End: 10-22-2023 Patient encounter procedure [facility] Comment on above: [id number] CM: Richard HINDS [id number] CM: Richard HINDS [id number]- 10/19- DID NOT CONFIRM Radiculopathy, lumbar region Start: 10-20-2023 End: 10-20-2023 Patient encounter procedure Jorge Luis Chilo [facility] Comment on above: RTC 9 months diabetic check Start: 09-29-2023 ANNUAL PCP TEAM CHRONIC DISEASE VISIT ANNUAL PCP TEAM CHRONIC DISEASE VISIT [facility] Start: 09-22-2023 End: 06-21-2024 25-hydroxyvitamin D3 [Mass/volume] in Serum or Plasma VITAMIN D 25 HYDROXY Lab Routine Vitamin D deficiency Expected: 09/22/2023, Expires: 06/21/2024 [facility] [place] Work Phone: Comment on above: Expected: 09/22/2023, Expires: 5 Start: 09-22-2023 End: 12-22-2023 ALBUMIN/CREAT RATIO RND UR ALBUMIN/CREAT RATIO RND UR Lab Routine Other proteinuria Expected: 09/22/2023, Expires: 12/22/2023 [facility] Work Phone: Comment on above: Expected: 09/22/2023, Expires: 4 Start: 09-22-2023 End: 06-21-2024 CBC W Auto Differential panel - Blood CBC + DIFF Lab Routine Anemia of renal disease Expected: 09/22/2023, Expires: 06/21/2024 [facility] [place] Work Phone: Comment on above: Expected: 09/22/2023, Expires: 5 Start: 09-22-2023 End: 06-21-2024 Magnesium [Mass/volume] in Serum or Plasma MAGNESIUM BLD Lab Routine Stage 3b chronic kidney disease (HCC) Expected: 09/22/2023, Expires: 06/21/2024 [facility] Work Phone: Comment on above: Expected: 09/22/2023, Expires: 5 Start: 09-22-2023 End: 06-21-2024 Parathyrin.intact [Mass/volume] in Serum or Plasma PTH INTACT BLD Lab Routine Stage 3b chronic kidney disease (HCC) Expected: 09/22/2023, Expires: 06/21/2024 [facility] [place] Work Phone: Comment on above: Expected: 09/22/2023, Expires: 5 Start: 09-22-2023 End: 06-21-2024 Renal function 2000 panel - Serum or Plasma RENAL FUNCTION PANEL Lab Routine Stage 3b chronic kidney disease (HCC) Expected: 09/22/2023, Expires: 06/21/2024 [facility] [place] Work Phone: Comment on above: Expected: 09/22/2023, Expires: 5 Start: 09-22-2023 End: 06-21-2024 Urate [Mass/volume] in Serum or Plasma URIC ACID BLOOD Lab Routine Stage 3b chronic kidney disease (HCC) Expected: 09/22/2023, Expires: 06/21/2024 [facility] [place] Work Phone: Comment on above: Expected: 09/22/2023, Expires: 5 Start: 09-22-2023 End: 12-22-2023 Urinalysis complete panel - Urine URINALYSIS, WITH MICROSCOPIC Lab Routine Stage 3b chronic kidney disease (HCC) Expected: 09/22/2023, Expires: 12/22/2023 [facility] [place] Work Phone: Comment on above: Expected: 09/22/2023, Expires: 4 Start: 09-17-2023 ANNUAL PCP TEAM CHRONIC DISEASE VISIT ANNUAL PCP TEAM CHRONIC DISEASE VISIT [facility] Start: 09-17-2023 SERUM CREATININE SERUM CREATININE [facility] Start: 09-16-2023 HEMOGLOBIN/HEMATOCRIT HEMOGLOBIN/HEMATOCRIT [facility] Start: 08-21-2023 Hemoglobin A1c measurement HbA1C [facility] Start: 08-13-2023 3 comp foot exam completed DIABETIC FOOT EXAM [facility] Start: 08-13-2023 ANNUAL PCP TEAM CHRONIC DISEASE VISIT ANNUAL PCP TEAM CHRONIC DISEASE VISIT [facility] Start: 08-13-2023 COVID-19 VACCINE (#1) COVID-19 VACCINE (#1) [facility] Comment on above: Postponed from 05/31/1960 (Declined at t his time) Start: 08-13-2023 Diabetic foot examination Diabetic Foot Exam [facility] Start: 08-13-2023 PNEUMOCOCCAL (2 - PCV) PNEUMOCOCCAL (2 - PCV) [facility] Start: 08-13-2023 [facility] Start: 08-13-2023 Pneumococcal Vaccine: 50+ (2 of 2 - PCV) Pneumococcal Vaccine: 50+ (2 of 2 - PCV) [facility] Start: 08-13-2023 Pneumococcal Vaccine: 50+ Years (2 of 2 - PCV) Pneumococcal Vaccine: 50+ Years (2 of 2 - PCV) [facility] Start: 07-15-2023 Hepatitis C antibody, confirmatory test DILATED RETINAL EXAM [facility] Start: 07-12-2023 End: 10-11-2023 PSA/PROSTATE SPECIFIC ANTIGEN SCREENING PSA/PROSTATE SPECIFIC ANTIGEN SCREENING Lab Routine Nocturia Benign prostatic hyperplasia with nocturia Screening PSA (prostate specific antigen) Expected: 07/12/2023, Expires: 10/11/2023 [facility] Work Phone: Comment on above: Expected: 07/12/2023, Expires: 4 Start: 06-30-2023 ANNUAL PCP TEAM CHRONIC DISEASE VISIT ANNUAL PCP TEAM CHRONIC DISEASE VISIT [facility] Start: 06-28-2023 Hepatitis B surface antibody level LDL CHOLESTEROL [facility] Start: 06-28-2023 SERUM CREATININE SERUM CREATININE [facility] Start: 06-23-2023 Influenza vaccination LUNG CANCER SCREENING [facility] Start: 06-23-2023 Screening for malignant neoplasm of lung Lung Cancer Screening [facility] Start: 06-20-2023 End: 09-19-2023 25-hydroxyvitamin D3 [Mass/volume] in Serum or Plasma VITAMIN D 25 HYDROXY Lab Routine Stage 3a chronic kidney disease (HCC) Hypertension, essential Vitamin D deficiency Expected: 06/20/2023, Expires: 09/19/2023 [facility] [place] Work Phone: Comment on above: Expected: 06/20/2023, Expires: 4 Start: 06-20-2023 End: 09-19-2023 ALBUMIN/CREAT RATIO RND UR ALBUMIN/CREAT RATIO RND UR Lab Routine Stage 3a chronic kidney disease (HCC) Hypertension, essential Other proteinuria Expected: 06/20/2023, Expires: 09/19/2023 [facility] [place] Work Phone: Comment on above: Expected: 06/20/2023, Expires: 4 Start: 06-20-2023 End: 09-19-2023 CBC W Auto Differential panel - Blood CBC + DIFF Lab Routine Stage 3a chronic kidney disease (HCC) Hypertension, essential Expected: 06/20/2023, Expires: 09/19/2023 [facility] [place] Work Phone: Comment on above: Expected: 06/20/2023, Expires: 4 Start: 06-20-2023 End: 09-19-2023 Magnesium [Mass/volume] in Serum or Plasma MAGNESIUM BLD Lab Routine Stage 3a chronic kidney disease (HCC) Hypertension, essential Expected: 06/20/2023, Expires: 09/19/2023 [facility] [place] Work Phone: Comment on above: Expected: 06/20/2023, Expires: 4 Start: 06-20-2023 End: 09-19-2023 Parathyrin.intact [Mass/volume] in Serum or Plasma PTH INTACT BLD Lab Routine Stage 3a chronic kidney disease (HCC) Hypertension, essential Secondary hyperparathyroidism (HCC) Expected: 06/20/2023, Expires: 09/19/2023 [facility] Work Phone: Comment on above: Expected: 06/20/2023, Expires: 4 Start: 06-20-2023 End: 09-19-2023 Renal function 2000 panel - Serum or Plasma RENAL FUNCTION PANEL Lab Routine Stage 3a chronic kidney disease (HCC) Hypertension, essential Expected: 06/20/2023, Expires: 09/19/2023 [facility] Work Phone: Comment on above: Expected: 06/20/2023, Expires: 4 Start: 06-20-2023 End: 09-19-2023 Urate [Mass/volume] in Serum or Plasma URIC ACID BLOOD Lab Routine Stage 3a chronic kidney disease (HCC) Hypertension, essential Expected: 06/20/2023, Expires: 09/19/2023 [facility] Work Phone: Comment on above: Expected: 06/20/2023, Expires: 4 Start: 06-20-2023 End: 09-19-2023 Urinalysis complete panel - Urine URINALYSIS, WITH MICROSCOPIC Lab Routine Stage 3a chronic kidney disease (HCC) Hypertension, essential Other proteinuria Expected: 06/20/2023, Expires: 09/19/2023 [facility] Work Phone: Comment on above: Expected: 06/20/2023, Expires: Start: 06-02-2023 HEMOGLOBIN/HEMATOCRIT HEMOGLOBIN/HEMATOCRIT [facility] Start: 06-02-2023 SERUM CREATININE SERUM CREATININE [facility] Start: 05-18-2023 ANNUAL PCP TEAM CHRONIC DISEASE VISIT ANNUAL PCP TEAM CHRONIC DISEASE VISIT [facility] Start: 05-09-2023 End: 07-09-2023 ALBUMIN/CREAT RATIO RND UR ALBUMIN/CREAT RATIO RND UR Lab Routine Diabetes mellitus due to underlying condition, uncontrolled, with hyperglycemia (HCC) Expected: 05/09/2023, Expires: 07/09/2023 [facility] Work Phone: Comment on above: Expected: 05/09/2023, Expires: Start: 04-13-2023 ANNUAL PCP TEAM CHRONIC DISEASE VISIT ANNUAL PCP TEAM CHRONIC DISEASE VISIT [facility] Start: 04-03-2023 Medicare Advantage Annual Wellness Visit Medicare Advantage Annual Wellness Visit [facility] Start: 04-01-2023 SERUM CREATININE SERUM CREATININE [facility] Start: 03-21-2023 Hepatitis B surface antibody level LDL CHOLESTEROL [facility] Start: 03-01-2023 ANNUAL PCP TEAM CHRONIC DISEASE VISIT ANNUAL PCP TEAM CHRONIC DISEASE VISIT [facility] Start: 02-16-2023 DIABETES SCREEN DIABETES SCREEN [facility] Start: 02-12-2023 End: 04-14-2023 ALBUMIN/CREAT RATIO RND UR ALBUMIN/CREAT RATIO RND UR Lab Routine Microalbuminuria Expected: 02/12/2023, Expires: 04/14/2023 [facility] Work Phone: Comment on above: Expected: 02/12/2023, Expires: 4 Start: 02-01-2023 Hemoglobin A1c measurement HbA1C [facility] Start: 02-01-2023 Hemoglobin A1c/Hemoglobin.total in Blood HBA1C [facility] Start: 01-26-2023 SERUM CREATININE SERUM CREATININE [facility] Start: 01-23-2023 Hepatitis B screening URINE ALBUMIN:CREATININE RATIO [facility] Start: 01-20-2023 Hepatitis B surface antibody level LDL CHOLESTEROL [facility] Start: 01-20-2023 SERUM CREATININE SERUM CREATININE [facility] Start: 01-18-2023 SERUM CREATININE SERUM CREATININE [facility] Start: 01-17-2023 SERUM CREATININE SERUM CREATININE [facility] Start: 01-03-2023 ANNUAL PCP TEAM CHRONIC DISEASE VISIT ANNUAL PCP TEAM CHRONIC DISEASE VISIT [facility] Start: 01-03-2023 Hepatitis B surface antibody level LDL CHOLESTEROL [facility] Start: 01-03-2023 SERUM CREATININE SERUM CREATININE [facility] Start: 12-06-2022 End: 02-05-2023 Carcinoembryonic Ag [Mass/volume] in Serum or Plasma CEA BLD Lab Routine History of rectal cancer Expected: 12/06/2022 (Approximate), Expires: 02/05/2023 [facility] Work Phone: Comment on above: Expected: 12/06/2022 (Approximate), Expi res: 02/05/2023 Start: 12-06-2022 End: 02-05-2023 CBC W Auto Differential panel - Blood CBC + DIFF Lab Routine History of rectal cancer Expected: 12/06/2022 (Approximate), Expires: 02/05/2023 [facility] Work Phone: Comment on above: Expected: 12/06/2022 (Approximate), Expi res: 02/05/2023 Start: 12-06-2022 End: 02-05-2023 Comprehensive metabolic 2000 panel - Serum or Plasma COMP METABOLIC PANEL Lab Routine History of rectal cancer Expected: 12/06/2022 (Approximate), Expires: 02/05/2023 [facility] Work Phone: Comment on above: Expected: 12/06/2022 (Approximate), Expi res: 02/05/2023 Start: 2022 Covid-19 Vaccine () Covid-19 Vaccine () [facility] Start: 2022 Influenza vaccination [facility] Start: 11-05-2022 ANNUAL PCP TEAM CHRONIC DISEASE VISIT ANNUAL PCP TEAM CHRONIC DISEASE VISIT [facility] Start: 11-05-2022 Hepatitis C antibody, confirmatory test DILATED RETINAL EXAM [facility] Start: 10-05-2022 ANNUAL PCP TEAM CHRONIC DISEASE VISIT ANNUAL PCP TEAM CHRONIC DISEASE VISIT [facility] Start: 10-05-2022 BP CONTROLLED (<130/80) BP CONTROLLED (<130/80) [facility] in Start: 10-05-2022 COLORECTAL CANCER SCREENING COLORECTAL CANCER SCREENING [facility] Comment on above: Postponed from 12/01/2004 (Declined at t his time) Start: 09-29-2022 Hemoglobin A1c/Hemoglobin.total in Blood HBA1C [facility] Start: 09-20-2022 ANNUAL PCP TEAM CHRONIC DISEASE VISIT ANNUAL PCP TEAM CHRONIC DISEASE VISIT [facility] Start: 09-20-2022 Hepatitis B surface antibody level LDL CHOLESTEROL [facility] Start: 09-06-2022 HEMOGLOBIN/HEMATOCRIT HEMOGLOBIN/HEMATOCRIT [facility] Start: 08-15-2022 Hemoglobin A1c/Hemoglobin.total in Blood HBA1C [facility] Start: 08-12-2022 End: 05-09-2023 25-hydroxyvitamin D3 [Mass/volume] in Serum or Plasma VITAMIN D 25 HYDROXY Lab Routine Vitamin D deficiency Expected: 08/12/2022, Expires: 05/09/2023 [facility] Work Phone: Comment on above: Expected: 08/12/2022, Expires: 4 Start: 08-12-2022 End: 10-12-2022 CBC W Auto Differential panel - Blood CBC + DIFF Lab Routine Screening for deficiency anemia Expected: 08/12/2022, Expires: 10/12/2022 [facility] Work Phone: Comment on above: Expected: 08/12/2022, Expires: 3 Start: 08-12-2022 End: 10-12-2022 Comprehensive metabolic 2000 panel - Serum or Plasma COMP METABOLIC PANEL Lab Routine Hypertension, essential Expected: 08/12/2022, Expires: 10/12/2022 [facility] Work Phone: Comment on above: Expected: 08/12/2022, Expires: 3 Start: 08-12-2022 End: 10-12-2022 Hemoglobin A1c in Blood HGB A1C Lab Routine Diabetes mellitus due to underlying condition, uncontrolled, with hyperglycemia (HCC) Expected: 08/12/2022, Expires: 10/12/2022 [facility] Work Phone: Comment on above: Expected: 08/12/2022, Expires: 3 Start: 08-12-2022 End: 10-12-2022 Lipid 1996 panel - Serum or Plasma LIPID PANEL BASIC Lab Routine Mixed hyperlipidemia Expected: 08/12/2022, Expires: 10/12/2022 [facility] Work Phone: Comment on above: Expected: 08/12/2022, Expires: 3 Start: 08-12-2022 End: 10-12-2022 PSA/PROSTSPECAG SCRN PSA/PROSTSPECAG SCRN Lab Routine Screening for prostate cancer Expected: 08/12/2022, Expires: 10/12/2022 [facility] Work Phone: Comment on above: Expected: 08/12/2022, Expires: 3 Start: 08-12-2022 End: 10-12-2022 Thyrotropin [Units/volume] in Serum or Plasma TSH BLD Lab Routine Hyponatremia Screening for thyroid disorder Expected: 08/12/2022, Expires: 10/12/2022 [facility] Work Phone: Comment on above: Expected: 08/12/2022, Expires: 3 Start: 08-11-2022 ANNUAL PCP TEAM CHRONIC DISEASE VISIT ANNUAL PCP TEAM CHRONIC DISEASE VISIT [facility] Start: 08-11-2022 BP CONTROLLED (<130/80) BP CONTROLLED (<130/80) [facility] Start: 08-05-2022 COVID-19 VACCINE (#1) COVID-19 VACCINE (#1) [facility] Comment on above: Postponed from 12/01/1964 (Declined at t his time) Postponed from 05/31 (Declined at this time) Start: 08-05-2022 COVID-19 VACCINE (1) COVID-19 VACCINE (1) [facility] Comment on above: Postponed from 12/01/1964 (Declined at t his time) Start: 08-05-2022 ONE PNEUMOVAX PRIOR TO AGE 65 ONE PNEUMOVAX PRIOR TO AGE 64 [facility] Comment on above: Postponed from 1975 (Declined at t his time) Start: 08-05-2022 PNEUMOCOCCAL (1 - PCV) PNEUMOCOCCAL (1 - PCV) [facility] Comment on above: Postponed from 12/01/1965 (Declined at t his time) Start: 08-02-2022 End: 10-02-2022 ALBUMIN/CREAT RATIO RND UR ALBUMIN/CREAT RATIO RND UR Lab Routine Microalbuminuria Expected: 08/02/2022, Expires: 10/02/2022 [facility] Work Phone: Comment on above: Expected: 08/02/2022, Expires: Start: 07-12-2022 Hemoglobin A1c/Hemoglobin.total in Blood HBA1C [facility] Start: 07-05-2022 ANNUAL PCP TEAM CHRONIC DISEASE VISIT ANNUAL PCP TEAM CHRONIC DISEASE VISIT [facility] Start: 07-05-2022 Hepatitis B screening URINE ALBUMIN:CREATININE RATIO [facility] Start: 07-05-2022 Hepatitis B surface antibody level LDL CHOLESTEROL [facility] Start: 06-02-2022 3 comp foot exam completed DIABETIC FOOT EXAM [facility] Start: 06-02-2022 ANNUAL PCP TEAM CHRONIC DISEASE VISIT ANNUAL PCP TEAM CHRONIC DISEASE VISIT [facility] Start: 05-31-2022 Hemoglobin A1c/Hemoglobin.total in Blood HBA1C [facility] Start: 05-18-2022 End: 02-12-2023 25-hydroxyvitamin D3 [Mass/volume] in Serum or Plasma VITAMIN D 25 HYDROXY Lab Routine Vitamin D deficiency Expected: 05/18/2022, Expires: 02/12/2023 [facility] Work Phone: Comment on above: Expected: 05/18/2022, Expires: 3 Start: 05-18-2022 End: 07-18-2022 Comprehensive metabolic 2000 panel - Serum or Plasma COMP METABOLIC PANEL Lab Routine Hypertension, essential Hyponatremia Stage 3a chronic kidney disease (HCC) Expected: 05/18/2022, Expires: 07/18/2022 [facility] Work Phone: Comment on above: Expected: 05/18/2022, Expires: 3 Start: 05-18-2022 End: 07-18-2022 Lipid 1996 panel - Serum or Plasma LIPID PANEL BASIC Lab Routine Mixed hyperlipidemia Expected: 05/18/2022, Expires: 07/18/2022 [facility] Work Phone: Comment on above: Expected: 05/18/2022, Expires: 3 Start: 05-18-2022 End: 07-18-2022 Thyrotropin [Units/volume] in Serum or Plasma TSH BLD Lab Routine Hypertension, essential Expected: 05/18/2022, Expires: 07/18/2022 [facility] Work Phone: Comment on above: Expected: 05/18/2022, Expires: 3 Start: 04-09-2022 Hepatitis B screening URINE ALBUMIN:CREATININE RATIO [facility] Start: 04-09-2022 Hepatitis B surface antibody level LDL CHOLESTEROL [facility] Start: 04-05-2022 Hemoglobin A1c/Hemoglobin.total in Blood HBA1C [facility] Start: 03-01-2022 End: 11-26-2022 25-hydroxyvitamin D3 [Mass/volume] in Serum or Plasma VITAMIN D 25 HYDROXY Lab Routine Vitamin D deficiency Expected: 03/01/2022, Expires: 11/26/2022 [facility] Work Phone: Comment on above: Expected: 03/01/2022, Expires: 3 Start: 03-01-2022 End: 05-01-2022 Lipid 1996 panel - Serum or Plasma LIPID PANEL BASIC Lab Routine Mixed hyperlipidemia Expected: 03/01/2022, Expires: 05/01/2022 [facility] Work Phone: Comment on above: Expected: 03/01/2022, Expires: 3 Start: 02-05-2022 Hemoglobin A1c/Hemoglobin.total in Blood HBA1C [facility] Start: 01-05-2022 Hemoglobin A1c/Hemoglobin.total in Blood HBA1C [facility] Start: 12-21-2021 Hemoglobin A1c/Hemoglobin.total in Blood HBA1C [facility] Start: 2021 Influenza vaccination INFLUENZA (#1) [facility] Start: 11-11-2021 Hemoglobin A1c/Hemoglobin.total in Blood HBA1C [facility] Start: 11-05-2021 End: 08-02-2022 25-hydroxyvitamin D3 [Mass/volume] in Serum or Plasma VITAMIN D 25 HYDROXY Lab Routine Vitamin D deficiency Expected: 11/05/2021, Expires: 08/02/2022 [facility] Work Phone: Comment on above: Expected: 11/05/2021, Expires: 3 Start: 11-05-2021 End: 08-02-2022 Basic metabolic 2000 panel - Serum or Plasma BASIC METABOLIC PNL Lab Routine Hyponatremia Expected: 11/05/2021, Expires: 08/02/2022 [facility] Work Phone: Comment on above: Expected: 11/05/2021, Expires: 3 Start: 11-05-2021 End: 01-05-2022 Lipid 1996 panel - Serum or Plasma LIPID PANEL BASIC Lab Routine Mixed hyperlipidemia Expected: 11/05/2021, Expires: 01/05/2022 [facility] Work Phone: Comment on above: Expected: 11/05/2021, Expires: 2 Start: 10-27-2021 End: 12-27-2021 PSA/PROSTSPECAG SCRN PSA/PROSTSPECAG SCRN Lab Routine Benign prostatic hyperplasia with nocturia Hematuria, microscopic Screening PSA (prostate specific antigen) Nocturia Expected: 10/27/2021, Expires: 12/27/2021 [facility] Work Phone: Comment on above: Expected: 10/27/2021, Expires: 2 Start: 10-05-2021 End: 12-05-2021 Clostridioides difficile toxin genes [Presence] in Stool by BETO with probe detection C. DIFFICILE PCR Lab Routine Diarrhea, unspecified type Expected: 10/05/2021, Expires: 12/05/2021 [facility] Work Phone: Comment on above: Expected: 10/05/2021, Expires: 2 Start: 10-05-2021 End: 12-05-2021 Gastrointestinal pathogens panel - Stool by Culture STOOL CULTURE/EIA Microbiology Routine Diarrhea, unspecified type Expected: 10/05/2021, Expires: 12/05/2021 [facility] Work Phone: Comment on above: Expected: 10/05/2021, Expires: 2 Start: 10-05-2021 End: 12-05-2021 Giardia lamblia+Cryptosporidium sp Ag [Presence] in Stool by Immunoassay CRYPTOSPORIDIUM AND GIARDIA ANTIGENS BY EIA Microbiology Routine Diarrhea, unspecified type Expected: 10/05/2021, Expires: 12/05/2021 [facility] Work Phone: Comment on above: Expected: 10/05/2021, Expires: 2 Start: 10-04-2021 Hemoglobin A1c/Hemoglobin.total in Blood HBA1C [facility] Start: 09-20-2021 End: 06-17-2022 25-hydroxyvitamin D3 [Mass/volume] in Serum or Plasma [facility] Work Phone: Comment on above: Expected: 09/20/2021, Expires: 3 Start: 09-20-2021 End: 06-17-2022 Comprehensive metabolic 2000 panel - Serum or Plasma [facility] Work Phone: Comment on above: Expected: 09/20/2021, Expires: 3 Start: 09-20-2021 End: 11-20-2021 Lipid 1996 panel - Serum or Plasma [facility] Work Phone: Comment on above: Expected: 09/20/2021, Expires: 2 Start: 09-20-2021 End: 11-20-2021 Thyrotropin [Units/volume] in Serum or Plasma [facility] Work Phone: Comment on above: Expected: 09/20/2021, Expires: 2 Start: 09-02-2021 Hemoglobin A1c/Hemoglobin.total in Blood HBA1C [facility] Start: 08-11-2021 BP CONTROLLED (<130/80) BP CONTROLLED (<130/80) [facility] Start: 08-11-2021 End: 05-08-2022 Comprehensive metabolic 2000 panel - Serum or Plasma COMP METABOLIC PANEL Lab Routine Elevated alkaline phosphatase level Elevated serum creatinine Hyperkalemia Expected: 08/11/2021, Expires: 05/08/2022 [facility] Work Phone: Comment on above: Expected: 08/11/2021, Expires: 3 Start: 08-11-2021 End: 10-11-2021 LIPID PANEL BASIC LIPID PANEL BASIC Lab Routine Mixed hyperlipidemia Expected: 08/11/2021, Expires: 10/11/2021 [facility] Work Phone: Comment on above: Expected: 08/11/2021, Expires: 2 Start: 08-05-2021 Influenza vaccination LUNG CANCER SCREENING [facility] Start: 07-31-2021 Hepatitis C antibody, confirmatory test DILATED RETINAL EXAM [facility] Start: 07-24-2021 Colonoscopy COLONOSCOPY [facility] Start: 07-24-2021 COLORECTAL CANCER SCREENING COLORECTAL CANCER SCREENING [facility] Start: 07-24-2021 Screening for malignant neoplasm of colon [facility] Start: 05-28-2021 Adult depression screening assessment DEPRESSION SCREENING [facility] Start: 05-28-2021 ANNUAL PCP TEAM CHRONIC DISEASE VISIT ANNUAL PCP TEAM CHRONIC DISEASE VISIT [facility] Start: 05-14-2021 Hepatitis B screening URINE ALBUMIN:CREATININE RATIO [facility] Start: 05-14-2021 Hepatitis B surface antibody level LDL CHOLESTEROL [facility] Start: 04-27-2021 ANNUAL PCP TEAM CHRONIC DISEASE VISIT ANNUAL PCP TEAM CHRONIC DISEASE VISIT [facility] Start: 03-23-2021 [object Object] DIABETIC FOOT EXAM [facility] Start: 03-23-2021 ANNUAL PCP TEAM CHRONIC DISEASE VISIT ANNUAL PCP TEAM CHRONIC DISEASE VISIT [facility] Start: 02-19-2021 ANNUAL PCP TEAM CHRONIC DISEASE VISIT ANNUAL PCP TEAM CHRONIC DISEASE VISIT [facility] Start: 02-16-2021 Hepatitis B screening URINE ALBUMIN:CREATININE RATIO [facility] Start: 02-16-2021 Hepatitis B surface antibody level LDL CHOLESTEROL [facility] Start: 02-13-2021 Adult depression screening assessment DEPRESSION SCREENING [facility] Start: 08-11-2020 HbA1c (Bld) [Mass fraction] HBA1C [facility] Start: 05-19-2020 HbA1c (Bld) [Mass fraction] HBA1C [facility] Start: 05-18-2020 SHINGRIX VACCINE (2 of 2) SHINGRIX VACCINE (2 of 2) [facility] Start: 04-27-2020 End: 04-27-2021 HbA1c (Bld) [Mass fraction] HGB A1C Lab Routine Diabetes mellitus due to underlying condition, uncontrolled, with hyperglycemia (HCC) Expected: 04/27/2020, Expires: 04/27/2021 [facility] Comment on above: Expected: 04/27/2020, Expires: 2 Start: 02-14-2020 End: 02-13-2021 HbA1c (Bld) [Mass fraction] HGB A1C Lab Routine Controlled type 2 diabetes mellitus without complication, without long-term current use of insulin (HCC) Expected: 02/14/2020, Expires: 02/13/2021 [facility] Comment on above: Expected: 02/14/2020, Expires: 1 Start: 12-03-2019 Influenza vaccination INFLUENZA (#1) [facility] Start: 2019 Hepatitis B Vaccine (1 of 3 - Risk 3-dose series) Hepatitis B Vaccine (1 of 3 - Risk 3-dose series) [facility] Start: 2019 RSV Immunization aged 60 or older (1 - 1-dose 60+ series) RSV Immunization aged 60 or older (1 - 1-dose 60+ series) [facility] Start: 2019 RSV Immunization for Adults (1 - Risk 60-74 years 1-dose series) RSV Immunization for Adults (1 - Risk 60-74 years 1-dose series) [facility] Start: 2019 RSV Vaccine (1 - 1-dose 60+ series) RSV Vaccine (1 - 1-dose 60+ series) [facility] Start: 2019 RSV Vaccine (1 - Risk 60-74 years 1-dose series) RSV Vaccine (1 - Risk 60-74 years 1-dose series) [facility] Start: 12-01-2014 PROSTATE CANCER SCREENING DISCUSSION PROSTATE CANCER SCREENING DISCUSSION [facility] Start: 12-01-2009 COLORECTAL CANCER SCREENING,SEE MODIFIER COLORECTAL CANCER SCREENING,SEE MODIFIER [facility] Start: 12-01-2009 Screening for malignant neoplasm of colon [facility] Start: 12-01-2009 SHINGRIX VACCINE (1 of 2) SHINGRIX VACCINE (1 of 2) [facility] Start: 12-01-2004 COLOGUARD (FIT-DNA) COLOGUARD (FIT-DNA) [facility] Start: 12-01-[address] COLONOGRAPHY [facility] Start: 12-01-2004 DIABETES SCREEN DIABETES SCREEN [facility] Start: 12-01-2004 FECAL OCCULT BLOOD FECAL OCCULT BLOOD [facility] Start: 12-01-2004 Screening for malignant neoplasm of colon [facility] Start: 12-01-2004 SIGMOIDOSCOPY SIGMOIDOSCOPY [facility] Start: 12-01-1994 LIPID SCREEN LIPID SCREEN [facility] Start: 12-01-1978 Urine microalbumin profile DTAP,TDAP,TD (1 - Tdap) [facility] Start: 12-01-1977 BP CONTROLLED (<130/80) BP CONTROLLED (<130/80) [facility] in Start: 12-01-1977 HEPATITIS C SCREENING HEPATITIS C SCREENING [facility] Start: 12-01-1977 Hepatitis C screening Hepatitis C Screening [facility] Start: 12-01-1977 HIV SCREENING HIV SCREENING [facility] Start: 1975 ONE PNEUMOVAX PRIOR TO AGE 65 ONE PNEUMOVAX PRIOR TO AGE 65 [facility] Start: 1971 Depression Monitoring Depression Monitoring [facility] Start: 1971 Depression Screening Depression Screening [facility] Start: 12-01-1969 [object Object] DIABETIC FOOT EXAM [facility] Start: 12-01-1969 Diabetic foot examination Diabetes: Foot Exam [facility] Start: 12-01-1969 Glaucoma screening Diabetes: Retinopathy Screening [facility] Start: 12-01-1969 Hepatitis C antibody, confirmatory test DILATED RETINAL EXAM [facility] Start: 12-01-1969 Preventive dental service Diabetes: Dental Exam [facility] Start: 12-01-1965 PNEUMOCOCCAL (1 - PCV) PNEUMOCOCCAL (1 - PCV) [facility] Start: 12-01-1964 COVID-19 VACCINE (1) COVID-19 VACCINE (1) [facility] Start: 12-01-1960 MMR Vaccines (1 of 1 - Standard series) MMR Vaccines (1 of 1 - Standard series) [facility] Start: 05-31-1960 COVID-19 VACCINE (#1) COVID-19 VACCINE (#1) [facility] Start: 1959 Annual wellness visit Medicare Initial Physical (IPPE) [facility] Start: 1959 HIV screening HIV Screening [facility] Start: 1959 Lipid panel Lipid Panel [facility] Start: 1959 Screening for malignant neoplasm of colon [facility] ACCUCHECK B/O ACCUCHECK B/O La b Routine Diabetes mellitus due to underlying condition, uncontrolled, with hyperglycemia (HCC) Ordered: 01/03/2022 [facility] Work Phone: Comment on above: Ordered: 01/03/2022 ACCUCHECK B/O ACCUCHECK B/O La b Routine Diabetes mellitus due to underlying condition, uncontrolled, with hyperglycemia (HCC) Ordered: 03/01/2022 [facility] Work Phone: Comment on above: Ordered: 03/01/2022 ACCUCHECK B/O ACCUCHECK B/O La b Routine Diabetes mellitus due to underlying condition, uncontrolled, with hyperglycemia (HCC) Ordered: 05/18/2022 [facility] Work Phone: Comment on above: Ordered: 05/18/2022 End: 02-13-2021 ALBUMIN/CREAT RATIO RND UR ALBUMIN/CREAT RATIO RND UR Lab Routine Controlled type 2 diabetes mellitus without complication, without long-term current use of insulin (HCC) 1 Occurrences starting 02/14/2020 until 02/13/2021 [facility] Comment on above: 1 Occurrences starting 02/14/2020 until 02/13/2021 End: 04-27-2021 ALBUMIN/CREAT RATIO RND UR ALBUMIN/CREAT RATIO RND UR Lab Routine Diabetes mellitus due to underlying condition, uncontrolled, with hyperglycemia (HCC) 1 Occurrences starting 04/27/2020 until 04/27/2021 [facility] Comment on above: 1 Occurrences starting 04/27/2020 until 04/27/2021 Bacteria identified in Blood by Culture [facility] [employer] Work Phone: Bacteria identified in Blood by Culture Blood culture Site #1 - Suspected Infection Microbiology STAT 11/27/2024 3:39 AM [facility] End: 02-13-2021 CBC W Auto Differential panel - Blood CBC + DIFF Lab Routine Routine physical examination 1 Occurrences starting 02/14/2020 until 02/13/2021 [facility] Comment on above: 1 Occurrences starting 02/14/2020 until 02/13/2021 Comprehensive metabo lic 2000 panel COMP METABOLIC PANEL Lab Routine Routine physical examination 1 Occurrences starting 02/14/2020 [facility] Comment on above: 1 Occurrences starting 02/14/2020 End: 02-19-2021 CREATININE BLD CREATININE BLD Lab Routine Dizziness 1 Occurrences starting 02/20/2020 until 02/19/2021 [facility] Comment on above: 1 Occurrences starting 02/20/2020 until 02/19/2021 Ct angiography head w/contrast/noncontrast CTA HEAD WO/W IVCON Radiology Routine Dizziness and giddiness Ordered: 02/20/2020 [facility] Comment on above: Ordered: 02/20/2020 End: 07-05-2023 Ct thorax w/o contrast material CT CHEST WO IVCON Radiology Routine Pulmonary nodules 1 Occurrences starting 06/05/2022 until 07/05/2023 [facility] Work Phone: Comment on above: 1 Occurrences starting 06/05/2022 until 07/05/2023 ECG B/O WO INTERP ( ED OFFICE) [facility] Comment on above: Ordered: 02/14/2020 Ordered: 02/20/2020 Ordered: 05/28/2020 ECG B/O WO INTERP (M ED OFFICE) ECG B/O WO INTERP (MED OFFICE) ECG Routine Hypertension, essential Ordered: 08/12/2022 [facility] Work Phone: Comment on above: Ordered: 08/12/2022 ECG B/O WO INTERP (M ED OFFICE) ECG B/O WO INTERP (MED OFFICE) ECG Routine Myocardial infarction due to demand ischemia (HCC) Hypertension, essential Ordered: 09/28/2022 [facility] Work Phone: Comment on above: Ordered: 09/28/2022 End: 10-14-2023 Echocardiography ECHO Cardiology Routine OTT (dyspnea on exertion) 1 Occurrences starting 10/13/2022 until 10/14/2023 [facility] Work Phone: Comment on above: 1 Occurrences starting 10/13/2022 until 10/14/2023 Glucose [Mass/volume ] in Serum or Plasma GLUCOSE, BLOOD (POC) Lab Routine Diabetes mellitus due to underlying condition, uncontrolled, with hyperglycemia (HCC) Ordered: 08/11/2021 [facility] Work Phone: Comment on above: Ordered: 08/11/2021 Glucose [Mass/volume ] in Serum or Plasma GLUCOSE, BLOOD (POC) Lab Routine Diabetes mellitus due to underlying condition, uncontrolled, with hyperglycemia (HCC) Ordered: 09/20/2021 [facility] Work Phone: Comment on above: Ordered: 09/20/2021 Glucose [Mass/volume ] in Serum or Plasma GLUCOSE, BLOOD (POC) Lab Routine Diabetes mellitus due to underlying condition, uncontrolled, with hyperglycemia (HCC) Ordered: 10/05/2021 [facility] Work Phone: Comment on above: Ordered: 10/05/2021 H&P for surgery H&P FOR SURGERY Procedures Routine History of rectal cancer Ordered: 09/02/2022 [facility] Work Phone: Comment on above: Ordered: 09/02/2022 Hemoglobin A1c/Hemoglobin.total in Blood HEMOGLOBIN A1C (POC) Lab Routine Diabetes mellitus due to underlying condition, uncontrolled, with hyperglycemia (HCC) Ordered: 08/11/2021 [facility] Work Phone: Comment on above: Ordered: 08/11/2021 Hemoglobin A1c/Hemoglobin.total in Blood HEMOGLOBIN A1C (POC) Lab Routine Diabetes mellitus due to underlying condition, uncontrolled, with hyperglycemia (HCC) Ordered: 09/20/2021 [facility] Work Phone: Comment on above: Ordered: 09/20/2021 Hemoglobin A1c/Hemoglobin.total in Blood HEMOGLOBIN A1C (POC) Lab Routine Diabetes mellitus due to underlying condition, uncontrolled, with hyperglycemia (HCC) Ordered: 10/05/2021 [facility] Work Phone: Comment on above: Ordered: 10/05/2021 End: 02-13-2021 HEP C AB IA W/CONF SCRN HEP C AB IA W/CONF SCRN Lab Routine Special screening examination for viral disease 1 Occurrences starting 02/14/2020 until 02/13/2021 [facility] Comment on above: 1 Occurrences starting 02/14/2020 until 02/13/2021 HGBA1C B/O (AG) HGBA1C B/O (AG) Lab Routine Diabetes mellitus due to underlying condition, uncontrolled, with hyperglycemia (HCC) Ordered: 01/03/2022 [facility] Work Phone: Comment on above: Ordered: 01/03/2022 HGBA1C B/O (AG) HGBA1C B/O (AG) Lab Routine Diabetes mellitus due to underlying condition, uncontrolled, with hyperglycemia (HCC) Ordered: 03/01/2022 [facility] Work Phone: Comment on above: Ordered: 03/01/2022 HGBA1C B/O (AG) HGBA1C B/O (AG) Lab Routine Diabetes mellitus due to underlying condition, uncontrolled, with hyperglycemia (HCC) Ordered: 05/18/2022 [facility] Work Phone: Comment on above: Ordered: 05/18/2022 HGBA1C B/O (AG) HGBA1C B/O (AG) Lab Routine Diabetes mellitus due to underlying condition, uncontrolled, with hyperglycemia (HCC) Ordered: 06/29/2022 [facility] Work Phone: Comment on above: Ordered: 06/29/2022 End: 02-13-2021 HIV 1+2 Ab IA Ql HIV 1 2 COMBO(AG/AB),WITH REFLEX TO DIFFERENTIATION Lab Routine Screening for HIV (human immunodeficiency virus) 1 Occurrences starting 02/14/2020 until 02/13/2021 [facility] Comment on above: 1 Occurrences starting 02/14/2020 until 02/13/2021 INJECTION HIP JOINT (AG) INJECTI ON HIP JOINT (AG) Radiology Routine Primary osteoarthritis of left hip Ordered: 01/23/2023 [facility] Work Phone: Comment on above: Ordered: 01/23/2023 End: 02-13-2021 LIPID PANEL BASIC LIPID PANEL BASIC Lab Routine Routine physical examination 1 Occurrences starting 02/14/2020 until 02/13/2021 [facility] Comment on above: 1 Occurrences starting 02/14/2020 until 02/13/2021 End: 04-27-2021 LIPID PANEL BASIC LIPID PANEL BASIC Lab Routine Mixed hyperlipidemia 1 Occurrences starting 04/27/2020 until 04/27/2021 [facility] Comment on above: 1 Occurrences starting 04/27/2020 until 04/27/2021 End: 07-31-2023 MRI ARTHROGRAM HIP LEFT MRI ARTHROGRAM HIP LEFT Radiology Routine Pain in hip Chronic left hip pain 1 Occurrences starting 07/01/2022 until 07/31/2023 [facility] Work Phone: Comment on above: 1 Occurrences starting 07/01/2022 until 07/31/2023 End: 08-30-2022 MRI ARTHROGRAM HIP LEFT [facility] Work Phone: Comment on above: 1 Occurrences starting 08/30/2022 until 08/30/2022 Mri pelvis w/o & w/contrast material MRI PELVIS WO/W IVCON Radiology Routine Malignant neoplasm of rectosigmoid junction (HCC) 08/09/2021 5:06 PM EDT [facility] Work Phone: End: 10-02-2023 Mri [...] present 1 Occurrences starting 09/02/2022 until 10/02/2023 [facility] Work Phone: Comment on above: 1 Occurrences starting 09/02/2022 until 10/02/2023 End: 11-12-2023 NM CARDIAC PERF STRESS/PHARM NM CARDIAC PERF STRESS/PHARM Radiology Routine Precordial pain OTT (dyspnea on exertion) Primary hypertension 1 Occurrences starting 10/13/2022 until 11/12/2023 [facility] Work Phone: Comment on above: 1 Occurrences starting 10/13/2022 until 11/12/2023 PAP TITRATION PSG (C PAP, BIPAP, ASV) PAP TITRATION PSG (CPAP, BIPAP, ASV) Procedures Routine MEKHI (obstructive sleep apnea) Ordered: 10/05/2021 [facility] Work Phone: Comment on above: Ordered: 10/05/2021 PAP TITRATION PSG (C PAP, BIPAP, ASV) PAP TITRATION PSG (CPAP, BIPAP, ASV) Procedures Routine MEKHI (obstructive sleep apnea) Ordered: 05/18/2022 [facility] Work Phone: Comment on above: Ordered: 05/18/2022 Prostate specific Ag [Mass/Vol] PSA/PROSTSPECAG DIAG Lab Routine Routine physical examination 1 Occurrences starting 02/14/2020 [facility] Comment on above: 1 Occurrences starting 02/14/2020 PT ED PATIENT INFORMATION PT ED PATIENT INFORMATION Other 05/30/2020 [facility] PT PLAN OF CARE CERTIFICATION PT PLAN OF CARE CERTIFICATION Procedures Routine Chronic bilateral low back pain, unspecified whether sciatica present Weakness Decreased mobility and endurance Ordered: 05/05/2020 [facility] Comment on above: Ordered: 05/05/2020 Radex hip unilateral with pelvis 1 view XR HIP 1V UNIL W PELVIS WHEN PERFORMED (AG) Radiology Routine Pain in left hip Ordered: 10/09/2022 [facility] Work Phone: Comment on above: Ordered: 10/09/2022 Radex shoulder compl ete minimum 2 views XR SHOULDER GENERAL 3V OR MORE AP/TRUE AP/OTHER LT Radiology Routine Left shoulder pain, unspecified chronicity Ordered: 04/27/2020 [facility] Comment on above: Ordered: 04/27/2020 End: 03-15-2021 Radex spine lumbosacral 2/3 views XR LUMBAR GENERAL 3V AP/LAT/L5-S1 Radiology Routine Chronic bilateral low back pain with sciatica, sciatica laterality unspecified 1 Occurrences starting 02/14/2020 until 03/15/2021 [facility] Comment on above: 1 Occurrences starting 02/14/2020 until 03/15/2021 End: 09-03-2023 Screening colonoscopy COLONOSCOPY SCREENING Endoscopy Routine History of rectal cancer 1 Occurrences starting 09/02/2022 until 09/03/2023 [facility] Work Phone: Comment on above: 1 Occurrences starting 09/02/2022 until 09/03/2023 End: 02-19-2025 Screening colonoscopy COLONOSCOPY SCREENING Endoscopy Routine History of rectal cancer 1 Occurrences starting 02/20/2024 until 02/19/2025 [facility] Work Phone: Comment on above: [...] Upon Ordering for 1 Occurrences starting 05/13/2024 [facility] Work Phone: Comment on above: Release Upon Ordering for 1 Occurrences starting 05/13/2024 End: 02-13-2021 TSH Qn TSH BLD Lab Routine Routine physical examination 1 Occurrences starting 02/14/2020 until 02/13/2021 [facility] Comment on above: 1 Occurrences starting 02/14/2020 until 02/13/2021 Urinalysis complete panel - Urine URINALYSIS, WITH MICROSCOPIC Lab Routine Dysuria 1 Occurrences starting 04/27/2020 [facility] Comment on above: 1 Occurrences starting 04/27/2020 VITAMIN D 25 HYDROXY VITAMIN D 2 5 HYDROXY Lab Routine Routine physical examination 1 Occurrences starting 02/14/2020 [facility] Comment on above: 1 Occurrences starting 02/14/2020 End: 07-31-2023 XR INJ ARTHROGRAM HIP LEFT XR INJ ARTHROGRAM HIP LEFT Radiology Routine Pain in hip Chronic left hip pain 1 Occurrences starting 07/01/2022 until 07/31/2023 [facility] Work Phone: Comment on above: 1 Occurrences starting 07/01/2022 until 07/31/2023 End: 08-30-2022 XR INJ ARTHROGRAM HIP LEFT XR INJ ARTHROGRAM HIP LEFT Radiology Routine Pain in hip Chronic left hip pain 1 Occurrences starting 08/30/2022 until 08/30/2022 [facility] Work Phone: Comment on above: 1 Occurrences starting 08/30/2022 until 08/30/2022 [facility] Immunizations Immunization Date Immunization Notes Care Provider Fidencio [facility] 08-12-2022 pneumococcal polysaccharide vaccine, 23 valent Belgica Vega DO Work Phone: [facility] 03-01-2022 influenza, injectabl e, quadrivalent, contains preservative Belgica Vega DO Work Phone: [facility] 03-01-2022 influenza virus vacc ine, unspecified formulation Belgica Je DO Work Phone: [facility] 01-08-2021 influenza, injectabl e, quadrivalent, contains preservative Janievega Pickett HEALTH PLAN SPECIALIST.ACCELERATOR TECHNICIAN Work Phone: [facility] 10-19-2020 tetanus toxoid, redu anna diphtheria toxoid, and acellular pertussis vaccine, adsorbed Janie Nieves HEALTH PLAN SPECIALIST.ACCELERATOR TECHNICIAN Work Phone: [facility] 10-19-2020 zoster vaccine recombinant Janie Pickett APRN.ACCELERATOR TECHNICIAN Work Phone: [facility] 03-23-2020 influenza, injectabl e, quadrivalent, contains preservative Belgica Javier [facility] 03-23-2020 zoster vaccine recombinant Belgicaluca Herrera [facility] Payers Date Payer Category Payer Self-pay 2023 Medicare (Managed Care) [facility] DUAL COMPLETE HMO POS SNP [id number] 2023 Medicare HMO [employer] DUAL COMPLET E [id number] 2022 Unknown [id number] 2021 Medicaid [id number] 2020 Medicaid [id number] 2020 Medicaid [id number] 2020 Medicare [id number] 2020 Medicare [id number] 2020 Medicare [id number] Unknown [id number] Unknown [id number] Unknown [id number] Unknown [id number] Unknown [id number] Social History Date Type Detail Facility Start: 02-14-2020 End: 07-10-2024 Tobacco smoking status NHIS Former smoker [facility] Start: 02-14-2020 End: 07-10-2024 Tobacco use and exposure Never used [facility] Start: 02-14-2020 End: 07-10-2024 Alcohol intake Ex-drinker (finding) [facility] Start: 1960 Sex Assigned At Not on file [facility] Start: 08-10-2020 End: 01-20-2022 Exposure to SARS-CoV-2 (event) Not sure [facility] Start: 04-03-1973 End: 04-03-2010 History of tobacco use Current smoker [facility] Start: 04-03-1973 End: 04-03-2010 History of tobacco use Cigarette Smoker [facility] Start: 04-19-2021 End: 11-26-2024 Cigarettes smoked current (pack per day) - Reported 1 [facility] Start: 09-23-2020 End: 01-18-2022 History SDOH Alcohol Frequency 1 [facility] Start: 09-23-2020 End: 12-28-2021 History SDOH Social Connections Phone 5 [facility] Start: 09-23-2020 End: 12-28-2021 History SDOH Social Connections Membership 2 [facility] Start: 09-23-2020 End: 12-28-2021 History SDOH Social Connections Living 7 [facility] Start: 09-23-2020 History SDOH Physical Activity DPW 0 [facility] Start: 09-23-2020 History SDOH Stress 4 [facility] Start: 09-23-2020 Education 9 [facility] Start: 04-12-2021 End: 01-03-2022 Tobacco Comment Smokes [place] [facility] Start: 1960 Sex Assigned At Male [facility] Work Phone: Start: 01-18-2022 History SDOH Housing Unable to Pay 3 [facility] Start: 12-28-2021 End: 11-26-2024 Social connection and isolation panel [facility] Do you belong to any clubs or organizations such as latter day groups, unions, fraternal or athletic groups, or school groups? Yes [facility] Are you now , , , , never or living with a partner? Never [facility] How often to you hav e a drink containing alcohol? Never [facility] Average Number of Drinks Not on file [facility] Work Phone: Do you feel stress - tense, restless, nervous, or anxious, or unable to sleep at night because your mind is troubled all the time - these days [OSQ] Very much [facility] (I/We) worried wheth er (my/our) food would run out before (I/we) got money to buy more. DK or Refused [facility] Work Phone: Start: 09-04-2020 Gender identity Identifies as male gender (finding) [facility] Work Phone: Start: 09-04-2020 Sexual orientation Heterosexual (finding) [facility] Work Phone: Has the [employer] threatened to shut off services in your home in past 12Mo No [facility] How hard is it for y ou to pay for the very basics like food, housing, medical care, and heating Somewhat hard [facility] (I/We) worried wheth er (my/our) food would run out before (I/we) got money to buy more. Sometimes true [facility] (I/We) worried wheth er (my/our) food would run out before (I/we) got money to buy more. Never true [facility] unknown [employer] Start: 08-01-2023 Sex Male (finding) [employer] Medical Equipment Procedure Code Equipment Code Equipment Origin al Text Equipment Identifier Dates [id number] Start: 09-22-2020 End: 05-18-2022 Comment on above: [...] Iol 1 Piece Foldable Uv Blue - [id number] Start: 08-18-2022 Lens Acrysof Ultrasert +23 Diopter Acrylic Iol 1 Piece Foldable Uv Blue - [id number] Start: 09-08-2022 Catheter Glidepa th 14.5fr Straight Polyurethane 28cm 23cm Hemodialysis Kit - [id number] Start: 07-18-2024 Goals Date Patient Goal Desired [...] 10/20/2023 2:19 PM Ester Elaine RN No [facility] 10-20-2023 Are you blind, or do you have serious difficulty seeing, even when wearing glasses No 10/20/2023 2:19 PM Ester Elaine RN No [facility] 10-20-2023 Do you have serious difficulty walking or climbing stairs Yes 10/20/2023 2:19 PM Ester Elaine RN Yes [facility] 10-20-2023 Do you have difficul ty dressing or bathing Yes 10/20/2023 2:19 PM Ester Elaine, LEATHA Yes [facility] 10-20-2023 Because of a physica l, mental, or emotional condition, do you have difficulty doing errands alone such as visiting a physician's office or shopping Yes 10/20/2023 2:19 PM Ester Elaine RN Yes [facility] Mental Status Date Assessment Result Facility 10-20-2023 Because of a physica l, mental, or emotional condition, do you have serious difficulty concentrating, remembering, or making decisions Yes 10/20/2023 2:19 PM Ester Elaine RN Yes [facility] Clinical Notes 05-05-2020 to 11-29-2024 Care Coordination - Jayro Mayen - 11/29/2024 2:17 PM EDTCare Coordination - Jayro Mcgills - 11/29/2024 2:17 PM EDTCare Coordination - Jayro Mayen - 11/29/2024 2:11 PM EDT Note Date & Type Note Facility 11-29-2024 Progress note Formatting of t his note might be different from the original. Confirmed pickup time of 330PM by transport [employer] JOSHUA DAVIS [employer] at phone number [phone]. Location of facility drop off is [facility]. Facility notified via Careport, TCC notified on secure chat. [facility] 11-29-2024 Miscellaneous Notes Confirmed pickup time of 330PM by transport [employer] SUSAN [employer] DUDLEY at phone number [phone]. Location of facility drop off is [facility]. Facility notified via Careport, TCC notified on secure chat. Transport requested 330 in Roundtrip. Awaiting time confirmation. Discharge med list transmitted to [facility] per TCC request. Sent updated notes to [facility] per TCC request. Await review and response regarding ability to accept. TCC notified. Care Management Progress Note Short Medical why still here: shaking/ tremors. 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 Nephrology and endocrinology following. Plan for hemodialysis today. Planned Discharge Disposition: Assisted Facility ([facility]) insurance auth approved for his return (he is also a bedhold). Barriers/Today we still Wait: Administering IV medications, Clinical stability, Symptomatic control Length of Stay (Days): 4 GMLOS: 4.6 manager heart failure to follow for discharge planning. 2:07 PM UPDATE: DC order noted Tasked TRACTOR TRAILER TRUCK DRIVER to send discharge paperwork and MAR to [facility]. Tasked her to arrange transportation via cot. Spoke with patient regarding transportation plan. Confirmed pickup time is 330. Discussed patient may have a co-pay for ambulance depending on their individual insurance coverage. Advised patient to call number on back of insurance card with questions or concerns. Updated bedside RN and refinery operator helper cracking unit. Updated patient's sister per his request. Sent updated notes to return back to [facility] via [facility]port per TCC request. Await review and response regarding ability to accept. TCC notified. Care Management Progress Note Short Medical why still here: persistent tremors/ shaking. Awaiting neuro consult. On IV vancomycin. Hemodialysis on Monday. Planned Discharge Disposition: Assisted Facility ([facility], bedhold but request precert) Barriers/Today we still Wait: Administering IV medications, Clinical stability, Symptomatic control, Surgical Brace Maker recommendations (comment) Length of Stay (Days): 3 GMLOS: 3.7 manager heart failure to follow for discharge planning. Referral placed to return back to [facility] via [facility]port per TCC request. Await review and response regarding ability to accept. TCC notified. Care Managment Initial Assessment Date: 11/27/2024 Patient Name: José Manuel Ashton : 1960 Patient Information Source of Information: Patient Cognition/Language: WFL - Within Functional Limits Permission given to speak with patient veterans service representative/caregiver as indicated: Confirmation of Payer with patient/family: Yes Payer Name: [employer] MEDICARE/[facility] DUAL COMPLETE : No Confirmation of Primary Care Physician: Primary Caregiver: If assistance needed, confirmed caregiver ready, willing and able to care for patient at discharge: Confirmed with: Living Arrangements Current Residence: Number of Floors Number of Entry Steps: Bed/Bath Levels: Facility: Nursing Facility Skilled Facility Name: [facility] Plan to Return: Yes Lives with: Alone [...] Services: Dialysis Type: Hemo Dialysis Provider Name/Location: [facility] M-F Durable Medical Equipment: Wheelchair (standard or power), Cane Patient's Goal/Discharge Plan Patient expects to be discharged to: [facility] Discharge Planning Actions: Continue to follow, Assisted Facility referral indicated Patient's Choice Rights and [employer] and Collaborative Relationships Disclosed as Indicated for Post-Acute Care: NA Interdisciplinary Team Engagement: Social Work Referral for: Additional Information: Spoke with patient at their bedside. Introduced self and role. Discussed discharge planning. Patient has health insurance and prescription coverage. Patient states he lives at [facility] and plans to return. Tasked TRACTOR TRAILER TRUCK DRIVER to [facility]. Will await response. He receives hemodialysis there Monday through Monday. He will need ambulance transport with cot upon discharge. pmp project manager will continue to follow for any discharge planning needs. 2:46 PM UPDATE: Patient is a bedhold at [facility]. They would like to skill him for his return but he may return regardless when medically ready. They are submitting precert today. SW call to [facility] Home coverage line. Per [employer] coverage line, he was denied Assisted Living due to jail long term care placement at [facility]. TCC notified. Care Management Progress Note Short Medical why still here: admitted for chills, received one dose of vancomycin. Blood cultures pending. Monitoring renal labs. On hemodialysis M-F at shelter facility. Nephrology and endocrinology following. Planned Discharge Disposition: Assisted Facility (patient came from [facility], anticipate return but will confirm with patient and facility) Barriers/Today we still Wait: Administering IV medications, Clinical stability, Symptomatic control, Surgical Brace Maker recommendations (comment) Length of Stay (Days): 2 GMLOS: No GMLOS Documented documented in this encounter [facility] 11-29-2024 Progress note Formatting of t his note might be different from the original. Transport requested 330 in Roundtrip. Awaiting time confirmation. [facility] 11-29-2024 Progress note Formatting of t his note might be different from the original. Discharge med list transmitted to [facility] via Careport per TCC request. [facility] 11-29-2024 Note Discharge Summary José Manuel Ashton [...] were stopped and he was discharged to [facility]. SIGNIFICANT DIAGNOSTIC STUDIES: CXR CONSULTANTS: Nephrology, Endocrinology, Neurology RECOMMENDED NEXT STEPS: Discharged to [facility]. Follow up final blood cultures. Physical Exam: [...] Your Medications These medications were sent to [facility] [address] [place] [id number] Hours: Monday to Monday 10 am to [...] Complexity: follow up within 7-14 calendar days (58998) [] Severe Complexity: follow up within 7 calendar days (45633) FOLLOW UP TESTING, PENDING RESULTS OR REFERRALS AT TRANSITIONAL CARE VISIT: [] Yes [] No PENDING STUDIES: Final blood cultures DISPOSITION: SNF FACILITY/HOME CARE AGENCY NAME: [facility] INSTRUCTIONS TO MA/SW: Please call patient on day after discharge (must document patient contacted within 2 business days of discharge). FOLLOW UP QUESTIONS FOR MA/SW: 1. Did you get medications filled and taking them as instructed from discharge? 2. Are you following your discharge instructions from your hospital st (more content not included)... [facility] 11-29-2024 History of Present illness Narrative Department of Internal Medicine Division of Endocrinology, Diabetes, & Metabolism Endocrinology Note Patient Name: José Manuel Ashton : 1960 AGE: 63 y.o. [facility]: [facility] A Admission Date: 11/25/2024 Visit Date: 11/29/2024 Reason for Endocrine Consult: DM/Pt on U300 insulin Provider/Team Requesting Consult: Dr. Hills PCP: Brittaney Garcia MD Outpt Rod Hanger: Yes [facility] ASSESSMENT: Type 2 diabetes mellitus with hyperglycemia, with jail insulin use Lethargy and chills HTN DM2 [...] low dose sliding scale Outpt Follow Up-- [facility] Endocrinology SUBJECTIVE/HPI: CHIEF COMPLAINT: Chief Complaint Patient presents with Altered Mental Status Pt presents to ED via EMS from [facility] for responding slowly and indicates he is cold. José Manuel Ashton is a 63 yo male who presented to ED from [facility] Dialysis center with Tremor, chills and delayed [...] Concerned he will receive pain meds at long term BG controlled no change in doses 11/28/2024 [...] in bed Patient reports he resides at [facility] Patient not sure of insulin doses at [facility] - Does not give his own injections. [...] found for: CHOLHDLRATIO No results found for: [id number] Lab Results Component Value Date TSH 3.04 11/28/2024 Radiology reportsas per the Radiologist Radiology: POCT glucose meter Result Date: 11/25/2024 Performed by: Felicita Daly[address] [address] CLIA ID: [id number] POCT glucose meter Result Date: 11/25/2024 Performed by: Felicita Daly[address] [address] CLIA ID: [id number] POCT glucose meter Result Date: 11/25/2024 Performed by: Felicita Daly[address] [address] CLIA ID: [id number] ECG 12 lead Sinus rhythm Low voltage, [...] original note were not included. OCCUPATIONAL THERAPY [facility]'s Name/MRN: José Manuel Ashton ([id number]) Date: 11/29/2024 Pt intended for OT treatment [...] muscle mass loss Fluid Accumulation: Mild Generalized Maintenance Leader Strength: Not Performed Nutrition Assessment: Pt is a 63 y/o male admitted to [facility] with complaints of Chills, weakness, and lethargy, no c/o CP, cough, nausea, vomiting. Respiratory panel wnl, COVID negative. Pt has ESRD on HD- on a Monday through Monday schedule at [facility]. Pt reports having a fair to decreased [...] On: Kcal/kg Weight Used for Energy Requirements: [place] Weight for Energy Calculation (kg): 75 kg Total Energy Requirements (kcals/day): 0956-4371 kcals (25-30 kcals/kg) Weight Used for Protein Requirements: [place] Weight in Kg Used for Protein Requirements: [...] lb) (07/10/24) % Weight Change (Calculated): 4.3 [place] Body Weight (lbs) (Calculated): 166 lbs [place] Body Weight (Kg) (Calculated): 75 kg % [place] Body Weight (Calculated): 159.6 % BMI (kg/m2) [...] Oral Nutrition Supplement Arlin Juárez RD Contact: *[phone] or via Secure Chat Images from the original note were not included. OCCUPATIONAL THERAPY [facility] Treatment Note Name/MRN: José Manuel Ashton ([id number]) Date of : 1960 Age: 63 y.o. Room[facility]Bed: [facility] A Visit #: 1 out of 7 Discharge Recommendation: Assisted Facility Equipment Needed: No Assessment Patient was [...] : 1960 AGE: 63 y.o. Room/Bed: [facility] A Admission Date: 11/25/2024 Visit Date: 11/28/2024 Reason for Endocrine Consult: DM/Pt on U300 insulin Provider/Team Requesting Consult: Dr. Hills PCP: Brittaney Garcia MD Outpt Rod Hanger: Yes [facility] ASSESSMENT: Type 2 diabetes mellitus with hyperglycemia, with terminal make up operator insulin use Lethargy and chills HTN DM2 [...] low dose sliding scale Outpt Follow Up-- [facility] Endocrinology SUBJECTIVE/HPI: CHIEF COMPLAINT: Chief Complaint Patient presents with Altered Mental Status Pt presents to ED via EMS from [facility] for responding slowly and indicates he is cold. José Manuel Ashton is a 63 yo male who presented to ED from [facility] Dialysis center with Tremor, chills and delayed [...] in bed Patient reports he resides at [facility] Patient not sure of insulin doses at [facility] - Does not give his own injections. [...] found for: CHOLHDLRATIO No results found for: [id number] Lab Results Component Value Date TSH 3.04 11/28/2024 Radiology reportsas per the Radiologist Radiology: POCT glucose meter Result Date: 11/25/2024 Performed by: Felicita Daly [address] [place] [address] CLIA ID: [id number] POCT glucose meter Result Date: 11/25/2024 Performed by: Felicita Daly [address] [place] [address] CLIA ID: [id number] POCT glucose meter Result Date: 11/25/2024 Performed by: Felicita Daly [address] [place] [address] CLIA ID: [id number] ECG 12 lead Sinus rhythm Low voltage, [...] Patient Name: JOSÉ MANUEL ASHTON : 1960 [facility]#: [id number] Exam Date/Time: 11/25/2024 12:25 Procedure: XR CHEST [...] Janell Waldrop Mobile Relation: Sister Preferred language: [place] Emergency Medicine needed? No Flori Hills MD Division of [...] []PD [] CrCl ml/min (if TARYN, no FURNACE PROCESS PLANT OPERATOR) Infectious Diagnosis: sepsis (target level = 15-20 mg/L) Antimicrobials: Patient recently received an antibiotic (last 12 hours) Date/Time Action Medication Dose Rate 11/27/24 6648 New Bag vancomycin (Vancocin) 750 mg in [...] 9:13 AM Leida Harris RPh (available on [employer]) Images from the original note were not [...] []PD [] CrCl ml/min (if TARYN, no FURNACE PROCESS PLANT OPERATOR) Infectious Diagnosis: sepsis (target level = 15-20 [...] 1:51 PM Leida Harris RPh (available on [employer]) Hospitalist Progress Note 11/27/2024 Subjective: Admit Date: [...] Janell Waldrop Mobile Relation: Sister Preferred language: [place] Emergency Medicine needed? No Flori Hills MD Division of Hospitalist Medicine [facility] [1] Past Medical History: Diagnosis Date [...] ondansetron, oxyCODONE, polyethylene glycol (PEG) 3350 [4] [facility] Progress Note Subjective/ 63 y.o. year old male who we are seeing in consultation for ESRD. Interval History Admitted for weakness, chills, and lethargy Resting in bed, easily arousable Reports generalized pain BP stable Adequate PO intake ROS Otherwise negative No interval changes to [facility]. All interval notes/labs/imaging reviewed. Objective/ Vitals: 11/26/24 [...] to call with any questions or concerns. [facility] Office This note is [...] the above assessment and plan with the CLASSIFIED ADVERTISING MANAGER. I agree with above note. HD today. Sees Dr. Abiel dudley outpatient. We cover his patients here. Nutrition rescreen completed. Pt referred to RD for ESRD patient on HD. Department of Internal Medicine Division of Endocrinology, Diabetes, & Metabolism Endocrinology Note Patient Name: José Manuel Ashton : 1960 AGE: 63 y.o. Room/Bed: [facility]/B4-466 A Admission Date: 11/25/2024 Visit Date: 11/27/2024 Reason for Endocrine Consult: DM/Pt on U300 insulin Provider/Team Requesting Consult: Dr. Hills PCP: Brittaney Garcia MD Outpt Rod Hanger: [facility] ASSESSMENT: Type 2 diabetes mellitus with hyperglycemia, with terminal make up operator insulin use Lethargy and chills HTN DM2 [...] on day of discharge Outpt Follow Up-- [facility] Endocrinology SUBJECTIVE/HPI: CHIEF COMPLAINT: Chief Complaint Patient presents with Altered Mental Status Pt presents to ED via EMS from [facility] for responding slowly and indicates he is cold. José Manuel Ashton is a 63 yo male who presented to ED from [facility] Dialysis center with Tremor, chills and delayed [...] in bed Patient reports he resides at [facility] Patient not sure of insulin doses at [facility] - Does not give his own injections. [...] Intake/Output Summary (Last 24 hours) at 11/27/2024 3931 Last data filed at 11/26/2024 2336 Gross [...] found for: CHOLHDLRATIO No results found for: [id number] No results found for: TSH, S3DRMHA, C0SXDBH, THYROIDAB Radiology reportsas per the Radiologist Radiology: POCT glucose meter Result Date: 11/25/2024 Performed by: Felicita Daly [address] [place] [address] CLIA ID: [id number] POCT glucose meter Result Date: 11/25/2024 Performed by: Felicita Daly [address] [place] [address] CLIA ID: [id number] POCT glucose meter Result Date: 11/25/2024 Performed by: Felicita Daly [address] [place] [address] CLIA ID: [id number] ECG 12 lead Sinus rhythm Low voltage, [...] original note were not included. PHYSICAL THERAPY [facility] Initial Evaluation Name/MRN: José Manuel Ashton ([id number]) Evaluation Date: 11/26/2024 Date of : 1960 Admission Date: 11/25/2024 12:06 PM Age: 63 y.o. Room/Bed: B4-466/B4-466 A Discharge Recommendation: Assisted Facility Equipment Needed: No Assessment IMPRESSION: Pt [...] Raw Score (No Stairs) : 11 [facility] Score: Static standing (1 or more minutes) [...] of Care supervision is transferred to a [facility] Therapy Services Physical Therapist. Goals and/or [...] 1:20 PM Prasanth Springer RPh (available on [employer]her[employer]) Images from the original note were not included. OCCUPATIONAL THERAPY [facility] Initial Evaluation Name/MRN: José Manuel Ashton ([id number]) Evaluation Date: 11/26/2024 Date of : 1960 Admission Date: 11/25/2024 12:06 PM Age: 63 y.o. Room/Bed: Discharge Recommendation: Assisted Facility Equipment Needed: No Assessment IMPRESSION: Pt [...] functional mobility. Recommend return to SNF [facility] with OT. Admitting Diagnosis: chills Performance Deficits [...] of Care supervision is transferred to a [facility] Therapy Services Occupational Therapist. Goals and/or [...] Janell Waldrop Mobile Relation: Sister Preferred language: Argentine Emergency Medicine needed? No Flori Hills MD Division of Hospitalist Medicine Acute care [facility] [1] Past Medical History: Diagnosis Date [...] (PEG) 3350 [4] documented in this encounter [facility] 11-29-2024 Hospital Discharge instructions Christie Orozco RN - 11/29/2024 1:39 PM EDT Images from the original note were not included. Continuity of Care Form Patient Name: José Manuel Ashton : 1960 Admit date: 11/25/2024 Discharge date: 11/29/24 Code Status Order: Full Code Advance Directives: N Admitting Physician: Flori Hills MD PCP: Brittaney Garica MD Discharging Nurse: Christie ZHANG Discharging Hospital Unit/Room#: B4-614/B4-081 A Discharging Unit Emergency Contact: Extended Emergency Contact Information Primary Emergency Contact: Janell Waldrop Mobile Relation: Sister Preferred language: [place] Emergency Medicine needed? No Past Surgical History: History reviewed. [...] Minimal assistance Toileting Minimal assistance Feeding Independent Eyeletter Total assistance Med Delivery yes Wound Care [...] Status Date: 11/25/24 Discharging to Facility/ Agency [facility] [address] [place] [address] Dialysis Facility (if applicable) Name: Address: Dialysis Schedule: Phone: Fax: Surgical Services Tech/Jogger Operator signature: ICIAN SECTION Name: José Manuel Ashton Prognosis: good Condition at Discharge: stable Rehab Potential (if transferring to Rehab): good Recommended Labs or Other Treatments After Discharge: BMP/CBC on 12/04/2024 The individual is being admitted to a nursing facility directly from an [facility] or a unit of a physicians care surgical hospital that is not operated by or licensed by [facility] under section 5119.14 or 5160-3-15.1 5 The individual requires the level of services provided by a nursing facility for the condition for which he or she was treated in the hospital and, Physician Certification: I certify the above information and transfer of José Manuel Ashton is necessary for the continuing treatment of the diagnosis listed and that he requires shelter facility for less than 30 days. Update Admission H&P: No change in H&P PHYSICIAN SIGNATURE: documented in this encounter [facility] 11-29-2024 Note [facility] Progress Note Subjective/ 63 y.o. year old male who we are seeing in consultation for ESRD. Interval History Admitted for weakness, chills, and lethargy Sleeping during HD, wakes to stimuli Reports generalized pain with tremors/twitching Denies SOB, on RA BP stable Adequate PO intake ROS Otherwise negative No interval changes to [facility]. All interval notes/labs/imaging reviewed. Objective/ Vitals: 11/29/24 [...] to call with any questions or concerns. [facility] This note is [...] OR ondansetron, oxyCODONE, polyethylene glycol (PEG) 3350 [facility] 11-29-2024 Nurse Note 2.4L removed with tx, UF goal adjusted for BP Tolerated well Patient Name: José Manuel Ashton Patient : 1960 Acct: [id number] Date of Admission: 11/25/2024 Room/Bed: F3[facility]/N[facility] A Code Status: Full Code Allergies: Allergies[1] [...] Regular Other (Comment) None (Room air) Diminished [place] Warm;Dry Good Soft;Rounded Active Generalized Non-pitting 11/29/24 1346 Alert (0) x4 Regular Other (Comment) None (Room air) -- [place] Warm;Dry Good Soft;Rounded Active Generalized Non-pitting Labs [...] - Before each treatment: Dialysis Machine No.: [id number] RO Machine Number: [id number] Dialyzer Lot No.: [id number] Tubing Lot Number: [id number] All Connections Secure: Yes Venous Parameters Set: Yes Arterial Parameters Set: Yes NS Bag: Yes Saline Line Double Clamped: Yes Dialyzer: Nipro Prime Volume (mL): 200 mL RO Machine Number: [id number] RO Machine Log Sheet Completed: Yes Machine Alarm Self Test: Completed, Passed (11/29/24931) Air Foam Detector: Tested, Proper Function, pH Reading Extracorporeal Circuit Tested for Integrity: Yes Machine Conductivity: 13.4 Manual Conductivity: 13.6 Manual Ph: 7.2 Bleach Test (Neg): Yes Bath Temperature: 36 C (96.8 F) Conductivity Meter Serial #: [id number] Machine Functioning Alarm Free? Yes Dialysis Bath: K+ (Potassium): 2 Ca+ (Calcium): 2.5 Na+ (Sodium): 137 HCO3 (Bicarb): 35 Bicarbonate Concentrate Lot No.: [id number] Acid Concentrate Lot No.: [id number] Chlorine Testing - Before each treatment and [...] Patient Active Problem List Diagnosis Chills [3] [facility] 11-29-2024 Nurse Note 2.4L removed with tx, UF goal adjusted for BP Tolerated well Patient Name: José Manuel Ashton Patient : 1960 Acct: [id number] Date of Admission: 11/25/2024 Room[facility]Bed: [facility] A Code Status: Full Code Allergies: [...] Regular Other (Comment) None (Room air) Diminished [place] Warm;Dry Good Soft;Rounded Active Generalized Non-pitting 11/29/24 1346 Alert (0) x4 Regular Other (Comment) None (Room air) -- [place] Warm;Dry Good Soft;Rounded Active Generalized Non-pitting Labs [...] - Before each treatment: Dialysis Machine No.: [id number] RO Machine Number: [id number] Dialyzer Lot No.: [id number] Tubing Lot Number: [id number] All Connections Secure: Yes Venous Parameters Set: Yes Arterial Parameters Set: Yes NS Bag: Yes Saline Line Double Clamped: Yes Dialyzer: Nipro Prime Volume (mL): 200 mL RO Machine Number: [id number] RO Machine Log Sheet Completed: Yes Machine Alarm Self Test: Completed, Passed (11/29/24931) Air Foam Detector: Tested, Proper Function, pH Reading Extracorporeal Circuit Tested for Integrity: Yes Machine Conductivity: 13.4 Manual Conductivity: 13.6 Manual Ph: 7.2 Bleach Test (Neg): Yes Bath Temperature: 36 C (96.8 F) Conductivity Meter Serial #: [id number] Machine Functioning Alarm Free? Yes Dialysis Bath: K+ (Potassium): 2 Ca+ (Calcium): 2.5 Na+ (Sodium): 137 HCO3 (Bicarb): 35 Bicarbonate Concentrate Lot No.: [id number] Acid Concentrate Lot No.: [id number] Chlorine Testing - Before each treatment and [...] José Manuel Ashton Patient : 1960 Acct: [id number] Date of Admission: 11/25/2024 [facility] A Code Status: Full Code Allergies: [...] (0) 4 Regular None (Room air) Diminished [place] Warm;Dry -- -- -- Labs Lab Results [...] - Before each treatment: Dialysis Machine No.: [id number] RO Machine Number: [id number] Dialyzer Lot No.: [id number] Tubing Lot Number: [id number] All Connections Secure: Yes Venous Parameters Set: Yes Arterial Parameters Set: Yes NS Bag: Yes Saline Line Double Clamped: Yes Dialyzer: Nipro Prime Volume (mL): 200 mL RO Machine Number: [id number] RO Machine Log Sheet Completed: Yes Conductivity Meter Serial #: [id number] Machine Functioning Alarm Free? Yes Dialysis Bath: [...] Diagnosis Chills [3] documented in this encounter [facility] 11-29-2024 Progress note Formatting of t his note might be different from the original. Sent updated notes to [facility] via [employer] per [facility] request. Await review and response regarding ability to accept. TCC notified. [facility] 11-29-2024 Note Care Management Prog ress Note Short Medical why still here: shaking/ tremors. 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 Nephrology and endocrinology following. Plan for hemodialysis today. Planned Discharge Disposition: Assisted Facility ([facility]) insurance auth approved for his return (he is also a bedhold). Barriers/Today we still Wait: Administering IV medications, Clinical stability, Symptomatic control Length of Stay (Days): 4 GMLOS: 4.6 manager heart failure to follow for discharge planning. 2:07 PM UPDATE: DC order noted Tasked TRACTOR TRAILER TRUCK DRIVER to send discharge paperwork and MAR to [facility]. Tasked her to arrange transportation via cot. Spoke with patient regarding transportation plan. Confirmed pickup time is 330. Discussed patient may have a co-pay for ambulance depending on their individual insurance coverage. Advised patient to call number on back of insurance card with questions or concerns. Updated bedside RN and refinery operator helper cracking unit. Updated patient's sister per his request. [facility] 11-29-2024 Progress note Formatting of t his note might be different from the original. Care Management Progress Note Short Medical why still here: shaking/ tremors. 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 Nephrology and endocrinology following. Plan for hemodialysis today. Planned Discharge Disposition: Assisted Facility ([facility]) insurance auth approved for his return (he is also a bedhold). Barriers/Today we still Wait: Administering IV medications, Clinical stability, Symptomatic control Length of Stay (Days): 4 GMLOS: 4.6 manager heart failure to follow for discharge planning. 2:07 PM UPDATE: DC order noted Tasked TRACTOR TRAILER TRUCK DRIVER to send discharge paperwork and MAR to [facility]. Tasked her to arrange transportation via cot. Spoke with patient regarding transportation plan. Confirmed pickup time is 330. Discussed patient may have a co-pay for ambulance depending on their individual insurance coverage. Advised patient to call number on back of insurance card with questions or concerns. Updated bedside RN and refinery operator helper cracking unit. Updated patient's sister per his request. [facility] 11-28-2024 Consult note Associated Order (s): IP CONSULT TO NEUROLOGY NEUROLOGY INITIAL CONSULTATION DATE/TIME: NOVEMBER 282024 [] PATIENT's NAME: POLI Cartagena DATE OF : [birth year] AGE: 63 GENDER: Male ROOM: [facility]/A PHYSICIAN REQUESTING CONSULT: Dr. Hills NEUROLOGIST: Lauri Kilgore MD DATE OF ADMISSION: 11-25-24 REASON FOR NEUROLOGY CONSULTATION: Persistent tremors/twitching HISTORY OF PRESENT ILLNESS ED HISTORY OF PRESENT ILLINESS José Manuel Ashton is a 63-year-old man who was admitted to the Emergency Department at [facility] on 11-25-24 . He presented with [...] neurological intervention is needed at this time. WHEY DEPARTMENT OPERATOR During this comprehensive evaluation, I dedicated a significant amount of time, 75 minutes, to thoroughly reviewing all current medical records and relevant diagnostic tests. This thoroughness was essential for me to engage in a pdss-ot-hxdr interview and conduct a focused neurological examination, [...] 's approval, I created this report using Verified Person recognition system, [employer], and Fabrice Co-soccer coach. I conducted an accurate and prompt tax preparer and a thorough editorial review. Acknowledging that [...] and cooperation. Lauri Kilgore MD Comprehensive Neurologist [phone] [employer] Phone: 11-28-2024 Consult note Associated Order (s): [...] was admitted to the Emergency Department at [facility] on 11-25-24 . He presented with [...] neurological intervention is needed at this time. WHEY DEPARTMENT OPERATOR During this comprehensive evaluation, I dedicated a significant amount of time, 75 minutes, to thoroughly reviewing all current medical records and relevant diagnostic tests. This thoroughness was essential for me to engage in a pder-ly-uuju interview and conduct a focused neurological examination, [...] 's approval, I created this report using [employer] voice recognition system, Bob Jurado, and Fabrice Co-soccer coach. I conducted an accurate and prompt tax preparer and a thorough editorial review. Acknowledging that [...] and cooperation. Lauri Kilgore MD Comprehensive Neurologist [phone] Associated Order(s): IP CONSULT TO NEPHROLOGY [facility] Consultation Note Reason for [...] hemodialysis. Patient follows with Dr. Dudley at [facility]. He receives HD at his facility M-F [...] in contact with his dialysis nurse at [facility] and she confirmed his DW had recently [...] concerns regarding my recommendations as outlined above. [facility] [1] No family history on file. [2] Social History Socioeconomic History Marital status: Single Social Drivers of Health Financial Resource Strain: Medium Risk (05/24/2023) Received from [facility] Overall Financial Resource Strain (CARDIA) Difficulty of [...] Physical Activity: Insufficiently Active (12/28/2021) Received from [facility] Exercise Vital Sign Days of Exercise per Week: 7 days Minutes of Exercise per Session: 20 min Stress: Stress Concern Present (12/28/2021) Received from [facility] [place] of Occupational [facility] - Occupational Stress Questionnaire Feeling of Stress : Very much Social Connections: Socially Isolated (12/28/2021) Received from [facility] Social Connection and Isolation Panel [NHANES] Frequency of Communication with Friends and Family: Once a week Frequency of Social Gatherings with Friends and Family: Never Attends Worship Services: Never Active Member of Clubs or [...] the above assessment and plan with the CLASSIFIED ADVERTISING MANAGER. I agree with above note. HD tomorrow. [...] Dr. Hills PCP: Brittaney Garcia MD Outpt Rod Hanger: Yes [facility] ASSESSMENT: Type 2 diabetes mellitus with hyperglycemia, with terminal make up operator insulin use PLAN: Start Lantus 10 units [...] medium dose sliding scale Outpt Follow Up-- [facility] Endocrinology SUBJECTIVE/HPI: CHIEF COMPLAINT: Chief Complaint Patient presents with Altered Mental Status Pt presents to ED via EMS from [facility] for responding slowly and indicates he is cold. José Manuel Ashton is a 63 yo male who presented to ED from [facility] Dialysis center with Tremor, chills and delayed [...] in bed Patient reports he resides at [facility] Patient not sure of insulin doses at [facility] - Does not give his own injections. [...] found for: CHOLHDLRATIO No results found for: [id number] No results found for: TSH, W7SUYJI, V2KZVIF, THYROIDAB Radiology reportsas per the Radiologist Radiology: POCT glucose meter Result Date: 11/25/2024 Performed by: Felicita Daly [address] [place] [id number] CLIA ID: [id number] POCT glucose meter Result Date: 11/25/2024 Performed by: Felicita Daly [address] [place] [id number] CLIA ID: [id number] POCT glucose meter Result Date: 11/25/2024 Performed by: Felicita Daly [address] [place] [address] CLIA ID: [id number] ECG 12 lead Sinus rhythm Low voltage, [...] Patient Name: [facility]OSÉ MANUEL ASHTON [facility] 1960 [id number] Exam Date/Time: 11/25/2024 12:25 Procedure: XR CHEST [...] [x] CrCl 22.9 ml/min (if TARYN, no FURNACE PROCESS PLANT OPERATOR) Consulted By: Dr. Adames Vancomycin Level: []Trough [...] 2:57 PM Analilia Solares PharmD (available on [employer]) documented in this encounter [facility] 11-28-2024 Note NEUROLOGY INITIAL CO NSULTATION DATE/TIME: NOVEMBER 282024 [] PATIENT's NAME: POLI Cartagena DATE OF : [birth year] AGE: 63 GENDER: Male ROOM: [facility]/A PHYSICIAN REQUESTING CONSULT: Dr. Hills NEUROLOGIST: Lauri Kilgore MD DATE OF ADMISSION: 11-25-24 REASON FOR NEUROLOGY CONSULTATION: Persistent tremors/twitching HISTORY OF PRESENT ILLNESS ED HISTORY OF PRESENT ILLINESS José Manuel Ashton is a 63-year-old man who was admitted to the Emergency Department at [facility] on 11-25-24 . 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 [facility] 11-28-2024 Note [facility] Progress [...] to call with any questions or concerns. [facility] This note is [...] OR ondansetron, oxyCODONE, polyethylene glycol (PEG) 3350 [facility] 11-28-2024 Progress note Formatting of t his note might be different from the original. Sent updated notes to return back to [facility] [place] via [facility] per [facility] request. Await review and response regarding ability to accept. [facility] notified. [facility] 11-28-2024 Note Hospitalist Progress Note 11/28/2024 Subjective: Admit Date: 11/25/2024 PCP: Brittaney Garcia MD Room#: Z7-023/I3-621 A Interval History: No cp, sob, cough, [...] Janell Waldrop Mobile Relation: Sister Preferred language: [place] Emergency Medicine needed? 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 [facility] 11-28-2024 Note Pharmacy Managed Van comycin Dosing [...] []PD [] CrCl ml/min (if TARYN, no FURNACE PROCESS PLANT OPERATOR) Infectious Diagnosis: sepsis (target level = 15-20 [...] 9:13 AM Leida Harris RPh (available on [employer]) [facility] 11-28-2024 Note Care Management Prog ress Note Short Medical why still here: persistent tremors/ shaking. Awaiting neuro consult. On IV vancomycin. Hemodialysis on Monday. Planned Discharge Disposition: Assisted Facility ([facility], bedhold but request precert) Barriers/Today we still Wait: Administering IV medications, Clinical stability, Symptomatic control, Surgical Brace Maker recommendations (comment) Length of Stay (Days): 3 GMLOS: 3.7 manager heart failure to follow for discharge planning. [facility] 11-28-2024 Progress note Formatting of t his note might be different from the original. Care Management Progress Note Short Medical why still here: persistent tremors/ shaking. Awaiting neuro consult. On IV vancomycin. Hemodialysis on Monday. Planned Discharge Disposition: Assisted Facility ([facility], bedhold but request precert) Barriers/Today we still Wait: Administering IV medications, Clinical stability, Symptomatic control, Surgical Brace Maker recommendations (comment) Length of Stay (Days): 3 GMLOS: 3.7 manager heart failure to follow for discharge planning. [facility] 11-27-2024 Nurse Note Patient Name: José Manuel Ashton Patient : 1960 Acct: [id number] Date of Admission: 11/25/2024 Room[facility] A Code Status: Full Code Allergies: [...] (0) 4 Regular None (Room air) Diminished [place] Warm;Dry -- -- -- Labs Lab Results [...] - Before each treatment: Dialysis Machine No.: [id number] RO Machine Number: [id number] Dialyzer Lot No.: [id number] Tubing Lot Number: [id number] All Connections Secure: Yes Venous Parameters Set: Yes Arterial Parameters Set: Yes NS Bag: Yes Saline Line Double Clamped: Yes Dialyzer: Nipro Prime Volume (mL): 200 mL RO Machine Number: [id number] RO Machine Log Sheet Completed: Yes Conductivity Meter Serial #: [id number] Machine Functioning Alarm Free? Yes Dialysis Bath: [...] Active Problem List Diagnosis Chills [3] T [facility] 11-27-2024 Note Referral placed to r eturn back to [facility] via [employer] per TCC request. Await review and response regarding ability to accept. TCC notified. [facility] 11-27-2024 Progress note Formatting of t his note might be different from the original. Referral placed to return back to [facility] via [employer] per TCC request. Await review and response regarding ability to accept. TCC notified. T [facility] 11-27-2024 Progress note Formatting of t his note might be different from the original. Care Managment Initial Assessment Date: 11/27/2024 Patient Name: José Manuel Ashton : 1960 Patient Information Source of Information: Patient Cognition/Language: WFL - Within Functional Limits Permission given to speak with patient veterans service representative/caregiver as indicated: Confirmation of Payer with patient/family: Yes Payer Name: [employer] MEDICARE/[facility] DUAL COMPLETE [place]: No Confirmation of Primary Care Physician: Primary Caregiver: If assistance needed, confirmed caregiver ready, willing and able to care for patient at discharge: Confirmed with: Living Arrangements Current Residence: Number of Floors Number of Entry Steps: Bed/Bath Levels: Facility: Nursing Facility Skilled Facility Name: [facility] Plan to Return: Yes Lives with: Alone [...] Services: Dialysis Type: Hemo Dialysis Provider Name/Location: [facility] M-F Durable Medical Equipment: Wheelchair (standard or power), Cane Patient's Goal/Discharge Plan Patient expects to be discharged to: [facility] Discharge Planning Actions: Continue to follow, Assisted Facility referral indicated Patient's Choice Rights and [employer] and Collaborative Relationships Disclosed as Indicated for Post-Acute Care: NA Interdisciplinary Team Engagement: Social Work Referral for: Additional Information: Spoke with patient at their bedside. Introduced self and role. Discussed discharge planning. Patient has health insurance and prescription coverage. Patient states he lives at [facility] and plans to return. Tasked TRACTOR TRAILER TRUCK DRIVER to send referral in [facility]. Will await response. He receives hemodialysis there Monday through Monday. He will need ambulance transport with cot upon discharge. pmp project manager will continue to follow for any discharge planning needs. 2:46 PM UPDATE: Patient is a bedhold at [facility]. They would like to skill him for his return but he may return regardless when medically ready. They are submitting precert today. [facility] 11-27-2024 Note Pharmacy Managed Van comycin Dosing [...] []PD [] CrCl ml/min (if TARYN, no FURNACE PROCESS PLANT OPERATOR) Infectious Diagnosis: sepsis (target level = 15-20 [...] Date: 11/27/24 Time: 1:51 PM Leida Harris [facility] (available on [employer]) [facility] 11-27-2024 Note Hospitalist Progress Note 11/27/2024 Subjective: Admit Date: 11/25/2024 PCP: Brittaney Garcia MD Room#: B4-227/B4-070 A Interval History: Having arm twitching and [...] Janell Waldrop Mobile Relation: Sister Preferred language: [place] Emergency Medicine needed? No Flori Hills MD Division of [...] 2 diabetes mellitus (more content not included)... [facility] 11-27-2024 Progress note Formatting of t his note might be different from the original. SW call to [employer] coverage line. Per [employer] coverage line, he was denied Assisted Living due to jail long term care placement at [facility]. TCC notified. [facility] 11-27-2024 Note Care Management Prog ress Note Short Medical why still here: admitted for chills, received one dose of vancomycin. Blood cultures pending. Monitoring renal labs. On hemodialysis M-F at shelter facility. Nephrology and endocrinology following. Planned Discharge Disposition: Assisted Facility (patient came from [facility], anticipate return but will confirm with patient and facility) Barriers/Today we still Wait: Administering IV medications, Clinical stability, Symptomatic control, Surgical Brace Maker recommendations (comment) Length of Stay (Days): 2 GMLOS: No GMLOS Documented [facility] 11-27-2024 Progress note Formatting of t his note might be different from the original. Care Management Progress Note Short Medical why still here: admitted for chills, received one dose of vancomycin. Blood cultures pending. Monitoring renal labs. On hemodialysis M-F at shelter facility. Nephrology and endocrinology following. Planned Discharge Disposition: Assisted Facility (patient came from [facility], anticipate return but will confirm with patient and facility) Barriers/Today we still Wait: Administering IV medications, Clinical stability, Symptomatic control, Surgical Brace Maker recommendations (comment) Length of Stay (Days): 2 GMLOS: No GMLOS Documented T [facility] 11-26-2024 Consult note Associated Order (s): IP [...] hemodialysis. Patient follows with Dr. Dudley at [facility]. He receives HD at his facility M- [...] in contact with his dialysis nurse at [facility] and she confirmed his DW had recently [...] concerns regarding my recommendations as outlined above. [facility] [1] No family history on file. [2] Social History Socioeconomic History Marital status: Single Social Drivers of Health Financial Resource Strain: Medium Risk (05/24/2023) Received from [facility] Overall Financial Resource Strain (CARDIA) Difficulty of [...] Physical Activity: Insufficiently Active (12/28/2021) Received from [facility] Exercise Vital Sign Days of Exercise per Week: 7 days Minutes of Exercise per Session: 20 min Stress: Stress Concern Present (12/28/2021) Received from [facility] [place] of Occupational Health - Occupational Stress Questionnaire Feeling of Stress : Very much Social Connections: Socially Isolated (12/28/2021) Received from [facility] Social Connection and Isolation Panel [NHANES] Frequency of Communication with Friends and Family: Once a week Frequency of Social Gatherings with Friends and Family: Never Attends Worship Services: Never Active Member of Clubs or [...] the above assessment and plan with the CLASSIFIED ADVERTISING MANAGER. I agree with above note. HD tomorrow. Patient established with Dr Abiel Dudley outpatient. We cover his patients here. [facility] 11-26-2024 Note PHYSICAL THERAPY [facility] Initial Evaluation Name/MRN: José Manuel Ashton ([id number]) Evaluation Date: 11/26/2024 Date of : 1960 Admission Date: 11/25/2024 12:06 PM Age: 63 y.o. Room/Bed: B4-466/B4-466 A Discharge Recommendation: Assisted Facility Equipment Needed: No Assessment IMPRESSION: Pt [...] Raw Score (No Stairs) : 11 [facility] Score: Static standing (1 or more minutes) [...] to improve stren (more content not included)... [facility] 11-26-2024 Note Pharmacy Managed Van comycin Dosing [...] Date: 11/26/24 Time: 1:20 PM Prasanth Springer [facility] (available on Mashery) [facility] 11-26-2024 Note OCCUPATIONAL THERAPY [facility] Initial Evaluation Name/MRN: José Manuel Ashton ([id number]) Evaluation Date: 11/26/2024 Date of : 1960 Admission Date: 11/25/2024 12:06 PM Age: 63 y.o. Room/Bed: Discharge Recommendation: Assisted Facility Equipment Needed: No Assessment IMPRESSION: Pt [...] functional mobility. Recommend return to [facility] [place] with OT. Admitting Diagnosis: chills Performance Deficits [...] Problems Encounter Prob (more content not included)... [facility] 11-26-2024 Note Hospitalist Progress Note 11/26/2024 Subjective: [...] Janell Waldrop Mobile Relation: Sister Preferred language: Argentine Emergency Medicine needed? No Flori Hills MD Division of Hospitalist Medicine [facility] [1] Past Medical History: Diagnosis Date [...] Once vancomycin (Vancoci (more content not included)... [facility] 11-26-2024 Consult note Associated Order (s): IP CONSULT TO ENDOCRINOLOGY Department of Internal Medicine Division of Endocrinology, Diabetes, & Metabolism Endocrinology Note Patient Name: José Manuel Ashton : 1960 AGE: 63 y.o. Room/Bed: Admission Date: 11/25/2024 Visit Date: 11/26/2024 Reason for Endocrine Consult: DM/Pt on U300 insulin Provider/Team Requesting Consult: Dr. Hills PCP: Brittaney Garcia MD Outpt Rod Hanger: Yes [facility] ASSESSMENT: Type 2 diabetes mellitus with hyperglycemia, with jail insulin use PLAN: Start Lantus 10 units [...] medium dose sliding scale Outpt Follow Up-- [facility] Endocrinology SUBJECTIVE/HPI: CHIEF COMPLAINT: Chief Complaint Patient presents with Altered Mental Status Pt presents to ED via EMS from [facility] for responding slowly and indicates he is cold. José Manuel Ashton is a 63 yo male who presented to ED from [facility] center with Tremor, chills and delayed [...] in bed Patient reports he resides at [facility] Patient not sure of insulin doses at [facility] - Does not give his own injections. Reports blood sugars are checked before meals but not sure what blood sugar levels are. Carb controlled diet Patient reports tremors, chills Feels unsteady on feet. PT was stopped at [facility] per patient. Glucose Date/Time Value Ref Range [...] found for: CHOLHDLRATIO No results found for: [id number] No results found for: TSH, S8QIUTK, O7GHSVE, THYROIDAB Radiology reportsas per the Radiologist Radiology: POCT glucose meter Result Date: 11/25/2024 Performed by: Felicita Daly[address] [address] CLIA ID: [id number] POCT glucose meter Result Date: 11/25/2024 Performed by: Felicita Daly[address] [address] CLIA ID: [id number] POCT glucose meter Result Date: 11/25/2024 Performed by: Felicita Daly, [address] [place] [id number] CLIA ID: [id number] ECG 12 lead Sinus rhythm Low voltage, [...] Hatch MD at 11/27/2024 11:51 AM EDT [facility] 11-25-2024 History and physical note Attending History [...] n/v, f/c. He normally is admitted to [facility]. Will admit for further evaluation and management. [...] Resource Strain: Medium Risk (05/24/2023) Received from [facility] Overall Financial Resource Strain (CARDIA) Difficulty of Paying Living Expenses: Somewhat hard Food Insecurity: No Food Insecurity (07/11/2024) Received from [facility] Hunger Vital Sign Worried About Running Out of Food in the Last Year: Never true Ran Out of Food in the Last Year: Never true Transportation Needs: No Transportation Needs (07/11/2024) Received from [facility] PRAPARE - Transportation Lack of Transportation (Medical): No Lack of Transportation (Non-Medical): No Physical Activity: Insufficiently Active (12/28/2021) Received from [facility] Exercise Vital Sign Days of Exercise per Week: 7 days Minutes of Exercise per Session: 20 min Stress: Stress Concern Present (12/28/2021) Received from [facility] [place] of Occupational Health - Occupational Stress Questionnaire Feeling of Stress : Very much Social Connections: Socially Isolated (12/28/2021) Received from [facility] Social Connection and Isolation Panel [NHANES] Frequency of Communication with Friends and Family: Once a week Frequency of Social Gatherings with Friends and Family: Never Attends Worship Services: Never Active Member of Clubs or Organizations: Yes Attends Club or Organization Meetings: Never Marital Status: Never Intimate Partner Violence: Not on file Housing Stability: Unknown (07/11/2024) Received from [facility] Housing Stability Vital Sign Unable to Pay [...] Janell Waldrop Mobile Relation: Sister Preferred language: [place] Emergency Medicine needed? No Flori Hills MD Division of Hospitalist Medicine [facility] [1] No family history on file. [...] on file. [3] Allergies Allergen Reactions Penicillins [facility] 11-25-2024 Note Attending History an d Physical [...] n/v, f/c. He normally is admitted to [facility]. Will admit for further evaluation and management. [...] Resource Strain: Medium Risk (05/24/2023) Received from [facility] Overall Financial Resource Strain (CARDIA) Difficulty of Paying Living Expenses: Somewhat hard Food Insecurity: No Food Insecurity (07/11/2024) Received from [facility] Hunger Vital Sign Worried About Running Out of Food in the Last Year: Never true Ran Out of Food in the Last Year: Never true Transportation Needs: No Transportation Needs (07/11/2024) Received from [facility] PRAPARE - Transportation Lack of Transportation (Medical): No Lack of Transportation (Non-Medical): No Physical Activity: Insufficiently Active (12/28/2021) Received from [facility] Exercise Vital Sign Days of Exercise per Week: 7 days Minutes of Exercise per Session: 20 min Stress: Stress Concern Present (12/28/2021) Received from [facility] [place] of Occupational Health - Occupational Stress Questionnaire Feeling of Stress : Very much Social Connections: Socially Isolated (12/28/2021) Received from [facility] Social Connection and Isolation Panel [NHANES] Frequency of Communication with Friends and Family: Once a week Frequency of Social Gatherings with Friends and Family: Never Attends Worship Services: Never Active Member of Clubs or Organizations: Yes Attends Club or Organization Meetings: Never Marital Status: Never Intimate Partner Violence: Not on file Housing Stability: Unknown (07/11/2024) Received from [facility] Housing Stability Vital Sign Unable to Pay [...] PLT 220 BMP: (more content not included)... [facility] 11-25-2024 History and physical note Attending History [...] n/v, f/c. He normally is admitted to [facility]. Will admit for further evaluation and management. [...] Resource Strain: Medium Risk (05/24/2023) Received from [facility] Overall Financial Resource Strain (CARDIA) Difficulty of Paying Living Expenses: Somewhat hard Food Insecurity: No Food Insecurity (07/11/2024) Received from [facility] Hunger Vital Sign Worried About Running Out of Food in the Last Year: Never true Ran Out of Food in the Last Year: Never true Transportation Needs: No Transportation Needs (07/11/2024) Received from [facility] PRAPARE - Transportation Lack of Transportation (Medical): No Lack of Transportation (Non-Medical): No Physical Activity: Insufficiently Active (12/28/2021) Received from [facility] Exercise Vital Sign Days of Exercise per Week: 7 days Minutes of Exercise per Session: 20 min Stress: Stress Concern Present (12/28/2021) Received from [facility] [place] of Occupational Health - Occupational Stress Questionnaire Feeling of Stress : Very much Social Connections: Socially Isolated (12/28/2021) Received from [facility] Social Connection and Isolation Panel [NHANES] Frequency of Communication with Friends and Family: Once a week Frequency of Social Gatherings with Friends and Family: Never Attends Worship Services: Never Active Member of Clubs or Organizations: Yes Attends Club or Organization Meetings: Never Marital Status: Never Intimate Partner Violence: Not on file Housing Stability: Unknown (07/11/2024) Received from [facility] Housing Stability Vital Sign Unable to Pay [...] Janell Waldrop Mobile Relation: Sister Preferred language: Argentine Emergency Medicine needed? No Flori Hills MD Division of Hospitalist Medicine [facility] [1] No family history on file. [...] Allergen Reactions Penicillins documented in this encounter [facility] 11-25-2024 Consult note Formatting of th is [...] [x] CrCl 22.9 ml/min (if TARYN, no [employer]) Consulted By: Dr. Adames Vancomycin Level: []Trough [...] 2:57 PM Analilia Solares PharmD (available on Masher[employer]) [facility] 11-25-2024 Emergency department Note Pt refused pain meds, not my dose at long term per pt [facility] 11-25-2024 Emergency department Note Pt refused pain meds, not my dose at long term per pt EMERGENCY DEPARTMENT ENCOUNTER Pt Name: José Manuel Ashton Birthdate 1960 Date of evaluation: 11/25/2024 ED Provider: Omid Adames MD CHIEF COMPLAINT Chief Complaint Patient presents with Altered Mental Status Pt presents to ED via EMS from [facility] for responding slowly and indicates he is [...] 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 There is no acute ST elevation or [...] In compliance with this authorization, please visit www.fda.gov/media/801879/download or www.fda.gov/media/143554/download to access the applicable information sheets. MAGNESIUM [...] to that. I did message the on-call applied exercise physiologist who is comfortable with the plan. Hospitalist [...] Resource Strain: Medium Risk (05/24/2023) Received from [facility] Overall Financial Resource Strain (CARDIA) Difficulty of Paying Living Expenses: Somewhat hard Food Insecurity: No Food Insecurity (07/11/2024) Received from [facility] Hunger Vital Sign Worried About Running Out of Food in the Last Year: Never true Ran Out of Food in the Last Year: Never true Transportation Needs: No Transportation Needs (07/11/2024) Received from [facility] PRAPARE - Transportation Lack of Transportation (Medical): No Lack of Transportation (Non-Medical): No Physical Activity: Insufficiently Active (12/28/2021) Received from [facility] Exercise Vital Sign Days of Exercise per Week: 7 days Minutes of Exercise per Session: 20 min Stress: Stress Concern Present (12/28/2021) Received from [facility] [place] of Occupational Health - Occupational Stress Questionnaire Feeling of Stress : Very much Social Connections: Socially Isolated (12/28/2021) Received from [facility] Social Connection and Isolation Panel [NHANES] Frequency of Communication with Friends and Family: Once a week Frequency of Social Gatherings with Friends and Family: Never Attends Worship Services: Never Active Member of Clubs or Organizations: Yes Attends Club or Organization Meetings: Never Marital Status: Never Housing Stability: Unknown (07/11/2024) Received from [facility] Housing Stability Vital Sign Unable to Pay for Housing in the Last Year: No Homeless in the Last Year: No Omid Adames MD 11/25/24 1430 Pt received dialysis today documented in this encounter [facility] 11-25-2024 Emergency department Triage note Pt received dialysis today [facility] 11-25-2024 Physician Emergency department Note EMERGENCY DEPARTMENT ENCOUNTER Pt Name: José Manuel Ashton Birthdate 1960 Date of evaluation: 11/25/2024 ED Provider: Omid Adames MD CHIEF COMPLAINT Chief Complaint Patient presents with Altered Mental Status Pt presents to ED via EMS from [facility] for responding slowly and indicates he is [...] 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 There is no acute ST elevation or [...] In compliance with this authorization, please visit www.fda.gov/media/017987/download or www.fda.gov/media/761903/download to access the applicable information sheets. MAGNESIUM [...] to that. I did message the on-call applied exercise physiologist who is comfortable with the plan. Hospitalist [...] Resource Strain: Medium Risk (05/24/2023) Received from [facility] Overall Financial Resource Strain (CARDIA) Difficulty of Paying Living Expenses: Somewhat hard Food Insecurity: No Food Insecurity (07/11/2024) Received from [facility] Hunger Vital Sign Worried About Running Out of Food in the Last Year: Never true Ran Out of Food in the Last Year: Never true Transportation Needs: No Transportation Needs (07/11/2024) Received from [facility] PRAPARE - Transportation Lack of Transportation (Medical): No Lack of Transportation (Non-Medical): No Physical Activity: Insufficiently Active (12/28/2021) Received from [facility] Exercise Vital Sign Days of Exercise per Week: 7 days Minutes of Exercise per Session: 20 min Stress: Stress Concern Present (12/28/2021) Received from [facility] [place] of Occupational Health - Occupational Stress Questionnaire Feeling of Stress : Very much Social Connections: Socially Isolated (12/28/2021) Received from [facility] Social Connection and Isolation Panel [NHANES] Frequency of Communication with Friends and Family: Once a week Frequency of Social Gatherings with Friends and Family: Never Attends Worship Services: Never Active Member of Clubs or Organizations: Yes Attends Club or Organization Meetings: Never Marital Status: Never Housing Stability: Unknown (07/11/2024) Received from [facility] Housing Stability Vital Sign Unable to Pay for Housing in the Last Year: No Homeless in the Last Year: No Omid Adames MD 11/25/24 1430 [facility] 07-24-2024 Telephone encounter Note Hi, Pt d/c to a SNF. Referral discarded. Thank you, Claudia Chow LPN [facility] Work Phone: 07-24-2024 Miscellaneous Notes Hi, Pt d/c to a SNF. Referral discarded. Thank you, Claudia Chow LPN documented in this encounter [facility] 07-23-2024 [facility] 07[facility]19-[facility] 07[facility]19-[facility] 07-18-[facility] 07-17-[facility] 07-16-[facility]24 [facility] 07[facility]15-[facility]24 [facility] 07[facility]14-[facility] 07-13-2024 [facility] 07-12-2024 [facility] 07-12-2024 Telephone encounter Note Bunny Scott [...] care clinicians may also obtain orders from [facility] Virtualist Providers Thank you and we would be happy to answer any questions. Judith Cat LPN 07/12/2024 10:23 AM [facility] Work Phone: 07-12-2024 Miscellaneous Notes Bunny [...] care clinicians may also obtain orders from [facility] Virtualist Providers Thank you and we would be happy to answer any questions. Judith Cat LPN 07/12/2024 10:23 AM documented in this encounter [facility] 07-10-2024 History of Present illness Narrative Chief complaint : Subjective : José Manuel Ashton is a 63 year old male seen for CKD follow up. SUBJECTIVE: José Manuel Ashton is a 63 year old White male with past medical history significant for : Type 2 diabetes, hypertension, hyperlipidemia, depression, colon to [facility] on 05/23/23 with polyp, lumbar radiculopathy, history [...] quittin.2 Smokeless tobacco: Never Tobacco comments: Smokes [place] Vaping Use Vaping status: Never Used Substance [...] Review Reviewed by Sebas Ocampo MD, Ph.D ([id number]) Comment (Serum Prot Electro) A reflex test [...] 3,715.7 Albumin/Creat Ratio <30 mg/g 5,008 (H) [place] Free, Serum 3.3 - 19.4 mg/L 57.0 (H) L[place] Free, Serum 5.7 - 26.3 mg/L 36.1 (H) K/L Ratio, Serum 0.26 - 1.65 1.58 DNA Antibody <=200 IU/mL 16 DNA Antibody Qualitative Interpretation Negative Negative MPA Result No M protein is identified. No M protein is identified. Staff Review (MPA) Reviewed by Sebas Ocampo MD, Ph.D ([id number]) C3 86 - 166 mg/dL 147 C4 [...] months (on 10/09/2024). documented in this encounter [facility] 06-28-2024 Telephone encounter Note S: Patient spoke with [facility] nurse regarding abnormal labs results being called by the [facility]. Hx: DM B: Onset of symptoms/concern labs were drawn from the [place] office at his appointment on 06/27/24 having an urgent notification at 15:54 was seen in the office for a 2-month follow up A: Bun 79.9 CR 4.3 Potassium 7.1 R: Paging Dr. Scott at 3:55 No further needs at this time. Reason for Disposition Lab or radiology calling with test results Protocols used: PCP Call - No [id number] [facility] 06-28-2024 Miscellaneous Notes S: Patient spoke with [facility] nurse regarding abnormal labs results being called by the [facility]. Hx: DM B: Onset of symptoms/concern labs were drawn from the [place] office at his appointment on 06/27/24 having an urgent notification at 15:54 was seen in the office for a 2-month follow up A: Bun 79.9 CR 4.3 Potassium 7.1 R: Paging Dr. Scott at 3:55 No further needs at this time. Reason for Disposition Lab or radiology calling with test results Protocols used: PCP Call - No [id number] documented in this encounter [facility] 05-20-2024 Telephone encounter Note Spoke to the patient's sister and relayed the message and she stated she would inform her brother because she takes all his calls. A 3 year Recall has been placed in [employer]. Brittany Roberson [facility] 05-20-2024 Telephone encounter Note ----- Message from Artem Ahmadi MD sent at 05/16/2024 8:39 AM EST ----- His pathology results are back and show a number of small polyps and we should plan for next colonoscopy in 3 years. Artem Ahmadi MD May 16, 2024 8:39 AM [facility] 05-20-2024 Miscellaneous Notes Spoke to the patient's sister and relayed the message and she stated she would inform her brother because she takes all his calls. A 3 year Recall has been placed in [facility]. Brittany Roberson ----- Message from Artem Ahmadi [...] 2024 8:39 AM documented in this encounter [facility] 05-16-2024 Progress note Formatting of t his note might be different from the original. His pathology results are back and show a number of small polyps and we should plan for next colonoscopy in 3 years. Artem Ahmadi MD May 16, 2024 8:39 AM [facility] Work Phone: 05-14-2024 Telephone encounter Note A 3 year Recall has been placed in [facility]. Called the patient and left him a voice message that a 3 Year Recall has been placed and he will receive a letter to call to schedule when he is due. Brittany Roberson [facility] 05-14-2024 Miscellaneous Notes A 3 year Recall has been placed in [facility]. Called the patient and left him a voice message that a 3 Year Recall has been placed and he will receive a letter to call to schedule when he is due. Brittany Roberson documented in this encounter [facility] 05-13-2024 Hospital Discharge instructions Artem Ahmadi [...] hours. Eat high-fiber foods or use an [id number] fiber supplement, if needed. Rest and avoid [...] are getting worse. documented in this encounter [facility] 05-13-2024 History and physical note HISTORY [...] quittin.1 Smokeless tobacco: Never Tobacco comments: Smokes [place] Vaping Use Vaping status: Never Used Substance [...] which included preparing to see the patient, iagy-[id number] patient care, completing clinical documentation, obtaining and/or reviewing separately obtained history, and performing a medically appropriate examination. Instructions Given to Patient: Patient given verbal preop instructions and voices comprehension and compliance. SIGNATURE: Rebecca Corey APRN.CNP PATIENT NAME: José Manuel Ashton DATE: May 13, 2024 TIME: 10:56 AM PAGER/CONTACT #: [facility] 05-13-2024 History and physical note HISTORY [...] quittin.1 Smokeless tobacco: Never Tobacco comments: Smokes [place] Vaping Use Vaping status: Never Used Substance [...] which included preparing to see the patient, [id number]-[id number] patient care, completing clinical documentation, obtaining and/or reviewing separately obtained history, and performing a medically appropriate examination. Instructions Given to Patient: Patient given verbal preop instructions and voices comprehension and compliance. SIGNATURE: Rebecca Corey APRN.CNP PATIENT NAME: José Manuel Ashton DATE: May 13, 2024 TIME: 10:56 AM PAGER/CONTACT #: documented in this encounter [facility] 04-27-2024 Telephone encounter Note S: Patient's sister (Janell) spoke with [facility] nurse regarding medication problem / prior authorization [...] call the pharmacy Return call back to [facility] with an update. Recommend calling the pharmacy in 1 hour to see if medication is ready. Any issues, please give the office a call back. Sister verbalizes understanding. Reason for Disposition [1] Caller has URGENT medicine question about med that PCP or specialist prescribed AND [2] triager unable to answer question Protocols used: Medication Question [id number] [facility] 04-27-2024 Miscellaneous Notes S: Patient's sister (Janell) spoke with [facility] nurse regarding medication problem / prior authorization [...] call the pharmacy Return call back to [facility] with an update. Recommend calling the pharmacy in 1 hour to see if medication is ready. Any issues, please give the office a call back. Sister verbalizes understanding. Reason for Disposition [1] Caller has URGENT medicine question about med that PCP or specialist prescribed AND [2] triager unable to answer question Protocols used: Medication Question [id number] documented in this encounter [facility] 04-26-[address] Dudley received [...] a prescription to his local pharmacy for [facility]. We will continue to try and contact patient. [facility] 04-26-[address] Dudley received [...] a prescription to his local pharmacy for [place]. We will continue to try and contact patient. documented in this encounter [facility] 02-20-2024 Telephone encounter Note Surgery Checklist Type: COLONOSCOPY Admission Type: outpatient Anesthesia: MAC Date: 05/13/24 Arrival Time: 12:30 PM Surgery Time: 1:30 PM Location: [facility] Prep mailed to patient. Brtitany Roberson [facility] 02-20-2024 Telephone encounter Note ----- Message from Brittany Dowling sent at 12/22/2023 11:46 AM EDT ----- Regarding: Schedule Colonoscopy Call and Schedule a Colonoscopy. [facility] 02-20-2024 Miscellaneous Notes Surgery Checklist Type: COLONOSCOPY Admission Type: outpatient Anesthesia: MAC Date: 05/13/24 Arrival Time: 12:30 PM Surgery Time: 1:30 PM Location: [facility] Prep mailed to patient. Brittany Roberson ----- Message from Brittany Dowling sent at 12/22/2023 11:46 AM EDT ----- Regarding: Schedule Colonoscopy Call and Schedule a Colonoscopy. documented in this encounter [facility] 01-24-2024 History of Present illness Narrative Chief complaint : Subjective : José Manuel Ashton is a 63 year old male seen for CKD follow up. SUBJECTIVE: José Manuel Ashton is a 63 year old White male with past medical history significant for : Type 2 diabetes, hypertension, hyperlipidemia, depression, colon to [facility] on 05/23/23 with polyp, lumbar radiculopathy, history [...] quittin.8 Smokeless tobacco: Never Tobacco comments: Smokes [place] Vaping Use Vaping status: Never Used Substance [...] Review Reviewed by Sebas Ocampo MD, Ph.D ([id number]) Comment (Serum Prot Electro) A reflex test [...] 3,715.7 Albumin/Creat Ratio <30 mg/g 5,008 (H) [place] Free, Serum 3.3 - 19.4 mg/L 57.0 (H) L[place] Free, Serum 5.7 - 26.3 mg/L 36.1 (H) K/L Ratio, Serum 0.26 - 1.65 1.58 DNA Antibody <=200 IU/mL 16 DNA Antibody Qualitative Interpretation Negative Negative MPA Result No M protein is identified. No M protein is identified. Staff Review (MPA) Reviewed by Sebas Ocampo MD, Ph.D ([id number]) C3 86 - 166 mg/dL 147 C4 [...] months (on 07/24/2024). documented in this encounter [facility] 12-29-2023 History of Present illness Narrative [...] h/o steroid response post-op Plan: Monitor JANELL [phone] (sister, contact) ([id number]) Early dry stage nonexudative age-related macular degeneration of both eyes Comment: Mottling, no fluid Plan: Monitor RTC 9 months diabetic check I have confirmed and edited as necessary the relevant ophthalmic history, ROS, and the neuro exam findings as obtained by others. I have seen and examined this patient. I have discussed the case and the management of this patient's care with the Resident/Fellow/Compliance Mgr, if applicable. I also have reviewed and agree with the assessment and plan as stated above and agree with all of its relevant components. Renetta Meza MD December 29, 2023 4:16 PM documented in this encounter [facility] 12-22-2023 Telephone encounter Note PT called to cancel appointment 01/21, stating that he did not need to see Brent due to him having an appointment w/ a applied exercise physiologist.Reiterated to the PT last appointment orders and that issue brent was seeing for is recommended to keep appointment w/ urology. PT still refused cancelled appointment. Noah Mejia [facility] 12-22-2023 Miscellaneous Notes PT called to cancel appointment 01/21, stating that he did not need to see Brent due to him having an appointment w/ a applied exercise physiologist.Reiterated to the PT last appointment orders and that issue brent was seeing for is recommended to keep appointment w/ urology. PT still refused cancelled appointment. Noah Mejia documented in this encounter [facility] 12-18-2023 Telephone encounter Note Called the patient and left a voice message asking the patient to call the office back to schedule his Screening Colonoscopy. Brittany Roberson [facility] 12-18-2023 Miscellaneous Notes Called the patient and left a voice message asking the patient to call the office back to schedule his Screening Colonoscopy. Brittany Roberson documented in this encounter [facility] 11-20-2023 Miscellaneous Notes SITUATION: only patient [...] for intervention/education details. documented in this encounter [facility] 11-20-2023 Patient's home Note SITUATION: only [...] restrictions See intervention summary for intervention/education details. [facility] Work Phone: 11-17-2023 Telephone encounter Note Unable to reach patient by phone to schedule P.T. visit. [facility] Work Phone: 11-17-2023 Miscellaneous Notes Unable to reach patient by phone to schedule P.T. visit. documented in this encounter [facility] 11-17-2023 Miscellaneous Notes Called all numbers listed for patient and left voice messages. Patient/caregiver did not return phone calls. documented in this encounter [facility] 11-17-2023 Plan of care note Called all numbers listed for patient and left voice messages. Patient/caregiver did not return phone calls. [facility] Work Phone: 11-17-2023 Miscellaneous Notes SN contacted Dr. Scott's office, no answer, VM left on nurse line with patient's name, , and message that this patient has been discharged from [facility] services-goals met. Call back number of [phone]. documented in this encounter [facility] 11-17-2023 Patient's home Note SN contacted Dr. Scott's office, no answer, VM left on nurse line with patient's name, , and message that this patient has been discharged from skilled home [facility] services-goals met. Call back number of [phone]. [facility] Work Phone: 11-16-2023 Miscellaneous Notes SITUATION: Assisted Discipline Discharge visit completed today. only patient [...] Discharged due to Goals met. SN emailed chief power dispatcherGirma herman RN re: SNDD today, asked if she would report this to Dr Scott since she is not in [employer] system RECOMMENDATION: Patient to continue with PT services. documented in this encounter [facility] 11-16-2023 Patient's home Note SITUATION: Assisted Discipline Discharge visit completed today. only patient [...] Discharged due to Goals met. SN emailed chief power dispatcherGirma herman RN re: SNDD today, asked if she would report this to Dr Scott since she is not in [employer] system RECOMMENDATION: Patient to continue with PT services. [facility] Work Phone: 11-15-2023 Miscellaneous Notes received a return fax from Dr. Scott dated 11/08/23 stating: Patient to continue with Sliding Scale INsulin only. No regularly scheduled Insulin dosing. This Sn then called sister Janell to inform her of this message. She states that is what he has been doing. Ster verbalizes understanding. documented in this encounter [facility] 11-15-2023 Patient's home Note SN received a return fax from Dr. Scott dated 11/08/23 stating: Patient to continue with Sliding Scale INsulin only. No regularly scheduled Insulin dosing. This Sn then called sister Janell to inform her of this message. She states that is what he has been doing. Ster verbalizes understanding. [facility] Work Phone: 11-15-2023 Miscellaneous Notes 11/15/23 11:16 AM - 11:20 AM CLEAT BLANKER received a phone call from the pt.'s sister Janell Waldrop and she stated that they did not complete the paperwork for PASSPORT due to she stated they did not think the pt. would qualify. CLEAT BLANKER asked the pt.'s sister if the pt. was able to bath himself. She stated that he is able to take his own shower. She stated she sets up his meds and he is able to get his meals. She stated that she took him grocery shopping yesterday, CLEAT BLANKER asked the pt.'s sister about transportation for the pt. to go to Outpatient Therapy. The pt.'s sister stated he goes on Monday and she is take him. The pt.'s sister stated she will transport the pt. to his Outpatient Therapy and they are aware of [facility]. She stated that the pt. was doing alot better. CLEAT BLANKER informed the pt.'s sister to call CLEAT BLANKER with any needs. documented in this encounter [facility] 11-15-2023 Patient's home Note 11/15/23 11:16 AM - 11:20 AM CLEAT BLANKER received a phone call from the pt.'s sister Janell Waldrop and she stated that they did not complete the paperwork for PASSPORT due to she stated they did not think the pt. would qualify. CLEAT BLANKER asked the pt.'s sister if the pt. was able to bath himself. She stated that he is able to take his own shower. She stated she sets up his meds and he is able to get his meals. She stated that she took him grocery shopping yesterday, CLEAT BLANKER asked the pt.'s sister about transportation for the pt. to go to Outpatient Therapy. The pt.'s sister stated he goes on Monday and she is take him. The pt.'s sister stated she will transport the pt. to his Outpatient Therapy and they are aware of [facility]. She stated that the pt. was doing alot better. CLEAT BLANKER informed the pt.'s sister to call CLEAT BLANKER with any needs. [facility] Work Phone: 11-14-2023 Miscellaneous Notes 11/14/23 11:51 AM - 11:53 AM CLEAT BLANKER called the pt.'s sister Janell and left her a message that CLEAT BLANKER was calling regarding if the pt. had a PASSPORT assessment and regarding transportation for Outpatient Therapy. CLEAT BLANKER left her name and phone number for the pt.'s sister to call CLEAT BLANKER back. documented in this encounter [facility] 11-14-2023 Patient's home Note 11/14/23 11:51 AM - 11:53 AM CLEAT BLANKER called the pt.'s sister Janell and left her a message that CLEAT BLANKER was calling regarding if the pt. had a PASSPORT assessment and regarding transportation for Outpatient Therapy. CLEAT BLANKER left her name and phone number for the pt.'s sister to call CLEAT BLANKER back. [facility] Work Phone: 11-14-2023 Miscellaneous Notes SITUATION: [...] for intervention/education details. documented in this encounter [facility] 11-14-2023 Patient's home Note SITUATION: only [...] d/c See intervention summary for intervention/education details. [facility] Work Phone: 11-13-2023 Miscellaneous Notes SITUATION: [...] for intervention/education details. documented in this encounter [facility] 11-13-2023 Patient's home Note SITUATION: OT [...] bathing See intervention summary for intervention/education details. [facility] Work Phone: 11-10-2023 Telephone encounter Note S: Patient sister called the clinical access center with complaint of Questions about G7 Dexcom. B: Ongoing unsure if the reader will forklift picker the blood sugar reading when he places the new G7 A: Patient c/o trying to put new G7 sensor on. Asking if the reader will work when they replace the sensor. R: Advised the reader should automatically forklift picker with the new G7 sensor. If [...] triager answers question Protocols used: Medication Question [id number] [facility] 11-10-2023 Miscellaneous Notes S: Patient sister called the clinical access center with complaint of Questions about G7 Dexcom. B: Ongoing unsure if the reader will forklift picker the blood sugar reading when he places the new G7 A: Patient c/o trying to put new G7 sensor on. Asking if the reader will work when they replace the sensor. R: Advised the reader should automatically forklift picker with the new G7 sensor. If [...] triager answers question Protocols used: Medication Question [id number] documented in this encounter [facility] 11-10-2023 Miscellaneous Notes SITUATION: Assisted routine visit completed today. SISTER also present [...] 206 at 11:30pm last night. This am [id number]. Patient denies any s/s HTN See intervention summary for education details. Patient demonstrated a need for further skilled SN services for chronic disease management & education and safety. Current Discharge plan: family support RECOMMENDATION: Next visit to focus on (be specific): SNDD documented in this encounter [facility] 11-10-2023 Patient's home Note SITUATION: Assisted routine visit completed today. SISTER also present [...] 206 at 11:30pm last night. This am [id number]. Patient denies any s/s HTN See intervention summary for education details. Patient demonstrated a need for further skilled SN services for chronic disease management & education and safety. Current Discharge plan: family support RECOMMENDATION: Next visit to focus on (be specific): SNDD [facility] Work Phone: 11-09-2023 Miscellaneous Notes SITUATION: [...] for intervention/education details. documented in this encounter [facility] 11-09-2023 Patient's home Note SITUATION: only [...] training See intervention summary for intervention/education details. [facility] Work Phone: 11-07-2023 Miscellaneous Notes SITUATION: [...] for intervention/education details. documented in this encounter [facility] 11-07-2023 Patient's home Note SITUATION: sister [...] ex See intervention summary for intervention/education details. [facility] Work Phone: 11-07-2023 Miscellaneous Notes Patient's sister cancelled vs for today, patient has PCP appt. She said to make next SN vs FRI this week. SN Notified case management coordinatormgr Girma Hinds RN, She will fax Dr Scott re: missed vs as she is not in [employer] system documented in this encounter [facility] 11-07-2023 Patient's home Note Patient's sister cancelled vs for today, patient has PCP appt. She said to make next SN vs FRI this week. SN Notified case management coordinatormgr Girma Hinds RN, She will fax Dr Scott re: missed vs as she is not in [employer] system [facility] Work Phone: 11-06-2023 Miscellaneous Notes SITUATION: [...] ue hep safety documented in this encounter [facility] 11-06-2023 Patient's home Note SITUATION: OT [...] focus on review of ue hep safety [facility] Work Phone: 11-03-2023 Miscellaneous Notes sent [...] Simeon Hinds RN documented in this encounter [facility] 11-03-2023 Patient's home Note SN sent [...] Please return to Attn: Simeon Hinds RN [facility] Work Phone: 11-03-2023 Miscellaneous Notes SITUATION: Assisted routine visit completed today. only patient also [...] sliding scale. So this am , his HNO=542 & he only took 2 units Humalog, NOT 10 units total. SN called Dr Scott's office, yet they are closed, 3:30pm. SN reported this to case management coordinatorGirma herman RN & She will fax this [...] understanding. His sister is also going to forklift picker some glucose tablets at the pharmacy [...] if humalog clarified? documented in this encounter [facility] 11-03-2023 Patient's home Note SITUATION: Assisted routine visit completed today. only patient also [...] sliding scale. So this am , his VUG=295 & he only took 2 units Humalog, NOT 10 units total. SN called Dr Scott's office, yet they are closed, 3:30pm. SN reported this to case management coordinatorGirma herman RN & She will fax this [...] understanding. His sister is also going to forklift picker some glucose tablets at the pharmacy [...] med list, see if humalog clarified? T [facility] Work Phone: 11-02-2023 Miscellaneous Notes SITUATION: only [...] with the visit. spoke with LIZZ irving; oZhaib is still awaiting return call from MD on whether patient is still required to brace. Plan of care, goals, and visit frequency reviewed and agreed upon with patient and/or caregiver. Current Discharge Plan: independent with home exercise program Anticipate discharge by tbd RECOMMENDATION: Next visit to focus on gait training See intervention summary for intervention/education details. documented in this encounter [facility] 11-02-2023 Patient's home Note SITUATION: only [...] training See intervention summary for intervention/education details. [facility] Work Phone: 10-31-2023 Miscellaneous Notes SITUATION: Assisted routine visit completed today. only patient also [...] uses ice. 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 Small scab left to upper portion. States [...] PCP appt 10/31 documented in this encounter [facility] 10-31-2023 Patient's home Note SITUATION: Assisted routine visit completed today. only patient also [...] uses ice. 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 Small scab left to upper portion. States [...] med changes from his PCP appt 10/31 [facility] Work Phone: 10-30-2023 Miscellaneous Notes SITUATION: [...] bathing and transfers documented in this encounter [facility] 10-30-2023 Patient's home Note SITUATION: OT [...] focus on shower level bathing and transfers [facility] Work Phone: 10-28-2023 Miscellaneous Notes PT [...] Disease, With Long-Term Current Use of Insulin ([facility]) Obesity, Class II, Bmi 35-39.9 Weight Bearing or Surgical Precautions: Fall Risk No BLT > 10#, LSO brace OOB, PPPD (vertigo), extreme fall risk, prefers cane for mobilization ASSESSMENT: Patient evaluated by [facility] physical therapy. Reviewed and explained [...] for intervention/education details. documented in this encounter [facility] 10-28-2023 Patient's home Note PT to contact Dr. Gutierrez on 10/30/23 for the following: Clarify status of back brace. [facility] Work Phone: 10-28-2023 Patient's home Note [...] cane for mobilization ASSESSMENT: Patient evaluated by [facility] physical therapy. Reviewed and explained [...] HEP. See intervention summary for intervention/education details. [facility] 10-27-2023 Telephone encounter Note Patient accepted and confirmed PT eval for 10/28/23. [facility] 10-27-2023 Miscellaneous Notes Patient accepted and confirmed PT eval for 10/28/23. documented in this encounter [facility] 10-27-2023 Telephone encounter Note There has been a delay in service for Home Care PT Evaluation for this patient due to schedule conflict. Patient was notified on 10/27/23. Thank you for this referral, please contact us with any questions. Maxine Alonzo [facility] 10-27-2023 Miscellaneous Notes There has been a delay in service for Home Care PT Evaluation for this patient due to schedule conflict. Patient was notified on 10/27/23. Thank you for this referral, please contact us with any questions. Maxine Lopez Nuclear Medicine Technologist documented in this encounter [facility] 10-27-2023 Miscellaneous Notes SITUATION: OT evaluation [...] Disease, With Long-Term Current Use of Insulin ([facility]) Obesity, Class II, Bmi 35-39.9 SPECIFIC ORDERS [...] due to surgical precautions. Patient evaluated by [facility] occupational therapy. Reviewed and explained [...] for intervention/education details. documented in this encounter [facility] 10-27-2023 Patient's home Note SITUATION: OT [...] due to surgical precautions. Patient evaluated by [facility] occupational therapy. Reviewed and explained [...] hep. See intervention summary for intervention/education details. [facility] Work Phone: 10-26-2023 Miscellaneous Notes 10/26/23 CLEAT BLANKER made a PASSPORT referral for the pt. to [facility]. documented in this encounter [facility] 10-26-2023 Patient's home Note 10/26/23 CLEAT BLANKER made a PASSPORT referral for the pt. to [facility]. [facility] Work Phone: 10-26-2023 Miscellaneous Notes SITUATION: [...] Current Use of Insulin ([facility]), Reason for AUTOMOTIVE PARTS PERSON referral: eval and treat for [employer] or Mom's meals?, eligible for PASSPORT. Pt could use both for personal care and homemaking assist. Family dynamics and household members: The pt. lives alone in senior apartment that he recently moved into the end of August. The pt.'s sister Laci Waldrop who lives in [place] is the pt.'s primary caregiver. ASSESSMENT: AUTOMOTIVE PARTS PERSON greeted at door by Eda Bright RN who was finishing her visit. The patien's sister fisher been assisting the pt. almost daily and feels the pt. needs more help in the home. Se is concerned about the pt. needing assist with bathing. Comments: CLEAT BLANKER arrived the pt.'s apt. and the pt.'s sister had went to meet CLEAT BLANKER at the main door. The pt.'s sister Janell came back to the pt.'s apt. The pt.'s apt. was scarcely furnished and the pt. does not have a TV. The pt.'s sister stated she is going to buy the pt. a smart TV. The pt.'s sister discussed how the pt. living in a basement apartment the receptionist doctor's office on his phone and TV are not good and she was told to get the pt. a smart TV. The pt. has a radio that he had on. CLEAT BLANKER educated the pt. and his sister Janell on [facility] and PASSPORT for an Aide/Homemaker, Home Delivered Meals and ER Medical Alert. The pt.'s sister stated she was going to check into the pt.'s insurance [facility] Medicare regarding if they would provide the pt. with an ER Medical Alert. CLEAT BLANKER informed the pt. and his sister that they can call member or customer service on the back of the pt.'s insurnace card regarding this. CLEAT BLANKER educated on [facility] for Home Delivered Meals and [place] Home Delivered Meals through [facility]. The pt.'s sister discussed the pt. needing to be on a Diabetic diet. CLEAT BLANKER discussed other Home Delivered Meal Providers sucha as Moms Meals and Global Meals for Diabetic Meals and they are provided under PASSPORT. The pt. and his sister want CLEAT BLANKER to make a PASSPORT referral for the pt. to [facility]. CLEAT BLANKER did inform the pt. and his sister it takes time to get on PASSPORT. The pt.'s sister has been taking the pt. to all his medical appointments. CLEAT BLANKER educated on [facility] and that the pt.'s [facility] Medicare may provide transportation to medical appointments and to talk with member or customer service on the back of the pt.'s insurance card. The pt.'s sister stated she grocery shops for the pt. CLEAT BLANKER educated on [facility] having Volunteers that will grocery shop at [facility] for you. ;SW discussed with the pt. and his sister regarding Advanced Directives for the Living Will and Medical POA. The pt.stated she puts his sister giancarlow that they can talk to her. CLEAT BLANKER educated more the Medical POA and Living Will. The pt.'s sister stated she thinks the insurance lady gave them the forms that they can complete if wanted. The pt.'s sister is planning to take the pt. to a Honing Machine Operator [employer] to get the pt.'s toenails cut. CLEAT BLANKER educated the pt. and his sister on the [employer] for a Honing Machine Operator [employer]ut[employer] to come to the home if too hard to get the pt. out. RECOMMENDATIONS: Recommended the following services: [facility]/PASSPORT, [facility] for Home Delivered Meals, Volunteer to grocery shop at [facility], [facility] Medicare may provide transportation to medical appointments and provide the pt. with an ER Medical Alert, other Home Delivered Meal Providers. Referrals made to: CLEAT BLANKER made a PASSPORT referral for the pt. to [facility]. Written information provided: On [facility]/PASSPORT. Response to recommendations: patient and his siter Janell in agreement to referral made to [facility] for PASSPORT. Medical social work provided support services in order to ensure a safe and appropriate discharge plan. If care team members have any additional concerns identified in the home, please notify AUTOMOTIVE PARTS PERSON for follow up. AUTOMOTIVE PARTS PERSON provided name and number to patient and his sister Janell for follow up if/when needed. Team/Physician updated: 1:49 PM - 1:52 PM CLEAT BLANKER [facility] Dr[facility] B[facility]ANKER made a home visit to the pt. today and his sister Janell was present. CLEAT BLANKER stated that the pt.'s sister Janell assists the pt. almost daily. CLEAT BLANKER stated that she made a PASSPORT referral for the pt. to [facility] for the pt. to get an Aide/Homemaker, Home Delivered Meals, ER Medical Alert. CLEAT BLANKER stated that she spoke to the pt. and his sister regarding transportation and that the pt.'s [facility] Medicare may provide transportation to medical appointments and provide the pt. with an ER Medical Alert. Mckayla stated she will inform the DrShireen of this. documented in this encounter [facility] 10-26-2023 Patient's home Note SITUATION: Medical [...] Current Use of Insulin (Hcc), Reason for AUTOMOTIVE PARTS PERSON referral: eval and treat for Community Resources-global or Mom's meals?, eligible for PASSPORT. Pt could use both for personal care and homemaking assist. Family dynamics and household members: The pt. lives alone in senior apartment that he recently moved into the end of August. The pt.'s sister Laci Waldrop who lives in [place] is the pt.'s primary caregiver. ASSESSMENT: AUTOMOTIVE PARTS PERSON greeted at door by Eda Bright RN who was finishing her visit. The patien's sister fisher been assisting the pt. almost daily and feels the pt. needs more help in the home. Se is concerned about the pt. needing assist with bathing. Comments: CLEAT BLANKER arrived the pt.'s apt. and the pt.'s sister had went to meet CLEAT BLANKER at the main door. The pt.'s sister Janell came back to the pt.'s apt. The pt.'s apt. was scarcely furnished and the pt. does not have a TV. The pt.'s sister stated she is going to buy the pt. a smart TV. The pt.'s sister discussed how the pt. living in a basement apartment the receptionist doctor's office on his phone and TV are not good and she was told to get the pt. a smart TV. The pt. has a radio that he had on. CLEAT BLANKER educated the pt. and his sister Janell on [facility] and PASSPORT for an Aide/Homemaker, Home Delivered Meals and ER Medical Alert. The pt.'s sister stated she was going to check into the pt.'s insurance [facility] Medicare regarding if they would provide the pt. with an ER Medical Alert. CLEAT BLANKER informed the pt. and his sister that they can call member or customer service on the back of the pt.'s insurnace card regarding this. CLEAT BLANKER educated on [facility] for Home Delivered Meals and [place] Home Delivered Meals through [facility]. The pt.'s sister discussed the pt. needing to be on a Diabetic diet. CLEAT BLANKER discussed other Home Delivered Meal Providers sucha as Moms Meals and Global Meals for Diabetic Meals and they are provided under PASSPORT. The pt. and his sister want CLEAT BLANKER to make a PASSPORT referral for the pt. to [facility]. CLEAT BLANKER did inform the pt. and his sister it takes time to get on PASSPORT. The pt.'s sister has been taking the pt. to all his medical appointments. CLEAT BLANKER educated on [facility] Public [employer] and that the pt.'s [facility] Medicare may provide transportation to medical appointments and to talk with member or customer service on the back of the pt.'s insurance card. The pt.'s sister stated she grocery shops for the pt. CLEAT BLANKER educated on [facility] having Volunteers that will grocery shop at [employer] for you. ;SW discussed with the pt. and his sister regarding Advanced Directives for the Living Will and Medical POA. The pt.stated she puts his sister donw that they can talk to her. CLEAT BLANKER educated more the Medical POA and Living Will. The pt.'s sister stated she thinks the insurance lady gave them the forms that they can complete if wanted. The pt.'s sister is planning to take the pt. to a [employer] to get the pt.'s toenails cut. CLEAT BLANKER educated the pt. and his sister on the [employer] for a Honing Machine [employer] to come to the home if too hard to get the pt. out. RECOMMENDATIONS: Recommended the following services: [facility] [employer] on [employer], [facility] for Home Delivered Meals, Volunteer to grocery shop at [facility] Medicare may provide transportation to medical appointments and provide the pt. with an ER Medical Alert, other Home Delivered Meal Providers. Referrals made to: CLEAT BLANKER made a PASSPORT referral for the pt. to [facility] [facility]. Written information provided: On [facility] [employer] on Aging/PASSPORT. Response to recommendations: patient and his siter Janell in agreement to referral made to [facility] on [employer] for PASSPORT. Medical social work provided support services in order to ensure a safe and appropriate discharge plan. If care team members have any additional concerns identified in the home, please notify AUTOMOTIVE PARTS PERSON for follow up. AUTOMOTIVE PARTS PERSON provided name and number to patient and his sister Janell for follow up if/when needed. Team/Physician updated: 1:49 PM - 1:52 PM CLEAT BLANKER called Dr. Bunny Scott and spoke to [facility] regarding CLEAT BLANKER made a home visit to the pt. today and his sister Janell was present. CLEAT BLANKER stated that the pt.'s sister Janell assists the pt. almost daily. CLEAT BLANKER stated that she made a PASSPORT referral for the pt. to [facility] [employer] for the pt. to get an Aide/Homemaker, Home Delivered Meals, ER Medical Alert. OSCAR stated that she spoke to the pt. and his sister regarding transportation and that the pt.'s [facility] Medicare may provide transportation to medical appointments and provide the pt. with an ER Medical Alert. Mckayla stated she will inform the DrShireen of this. [facility] Work Phone: 10-26-2023 Miscellaneous Notes SITUATION: Assisted routine visit completed today. pt's sister also [...] blood sugars, pain documented in this encounter [facility] 10-26-2023 Patient's home Note SITUATION: Assisted routine visit completed today. pt's sister also [...] them to cleanse with alcohol & leave RESIDENTIAL SUBSTANCE ABUSE COUNSELOR or can apply ABD for protection/padding Patient [...] specific): assess back incision, blood sugars, pain [facility] Work Phone: 10-24-2023 Miscellaneous Notes 10/24/23 9:30 AM - 9:35 AM CLEAT BLANKER received a phone call from the pt.'s sister Janell sAhton returning CLEAT BLANKER'S phone call. CLEAT BLANKER stated she was calling regarding the pt. and community resources. CLEAT BLANKER educated the pt.'s sister on [facility] and PASSPORT. CLEAT BLANKER discussed an Aide/Homemaker, Home Delivered Meals and ER Medical Alert under PASSPORT. CLEAT BLANKER stated she could make a home visit and the pt.'s sister supportive of this. She stated that she got the pt. a shower chair and handheld shower.She stated that she is not sure about the pt. bathing. The pt.'s sister wants to be present for CLEAT BLANKER visit and CLEAT BLANKER visit scheduled for 10/26/23 at 10:00 AM. documented in this encounter [facility] 10-24-2023 Patient's home Note 10/24/23 9:30 AM - 9:35 AM CLEAT BLANKER received a phone call from the pt.'s sister Janell Ashton returning CLEAT BLANKER'S phone call. CLEAT BLANKER stated she was calling regarding the pt. and community resources. CLEAT BLANKER educated the pt.'s sister on [facility] and PASSPORT. CLEAT BLANKER discussed an Aide/Homemaker, Home Delivered Meals and ER Medical Alert under PASSPORT. CLEAT BLANKER stated she could make a home visit and the pt.'s sister supportive of this. She stated that she got the pt. a shower chair and handheld shower.She stated that she is not sure about the pt. bathing. The pt.'s sister wants to be present for CLEAT BLANKER visit and CLEAT BLANKER visit scheduled for 10/26/23 at 10:00 AM. [facility] Work Phone: 10-23-2023 Miscellaneous Notes 10/23/23 12:48 PM - 12;50 PM CLEAT BLANKER called the pt.'s sister Janell Ashton and left her a message that CLEAT BLANKER was calling regarding the pt. and community resources and more help with the pt.'s care. CLEAT BLANKER left her name and phone number to call CLEAT BLANKER back. documented in this encounter [facility] 10-23-2023 Patient's home Note 10/23/23 12:48 PM - 12;50 PM CLEAT BLANKER called the pt.'s sister Janell Ashton and left her a message that CLEAT BLANKER was calling regarding the pt. and community resources and more help with the pt.'s care. CLEAT BLANKER left her name and phone number to call CLEAT BLANKER back. [facility] Work Phone: 10-22-2023 Miscellaneous Notes SITUATION: Assisted SOC visit completed today. only patient present [...] laminectomy on 09/25 and then went to [facility] for rehab. He returned home on [...] on edge of bed for review of [facility] booklet and signed consent. SN then [...] be here after she gets home from latter day. Pt has a lower back incision that is covered with a ABD pad and has lidocaine patches to either side(placed on 10/19). All of this was removed by SN. Incision is well approximated and secured with steristrips. There is a small opening at most proximal area that has a scant amount of serous drainage and pt was placed on cephalexin before dc by [facility]. Immediate area is slightly red but does [...] and pt and sister are VERY interested. AUTOMOTIVE PARTS PERSON referral is in place to address. SN will also have AUTOMOTIVE PARTS PERSON address any other resources such as PASSPORT; pt could benefit from personal care assistance as well as homemaking and ways to make him more independent from his sister. Pt's surgery was at [facility] and he will follow up with [...] with his care but does live in [place] and is not available 24/10 See intervention [...] services: Patient agreeable to PT, OT and AUTOMOTIVE PARTS PERSON referrals. Patient declined N/A referrals. Additional concerns to be followed up on: NONE Next visit to focus on (be specific): incision check, CP assessment, continue diabetic teaching, follow up on AUTOMOTIVE PARTS PERSON referral for community resources. documented in this encounter [facility] 10-22-2023 Patient's home Note SITUATION: Assisted SOC visit completed today. only patient present [...] laminectomy on 09/25 and then went to [facility] for rehab. He returned home on [...] on edge of bed for review of [facility] booklet and signed consent. SN then [...] be here after she gets home from latter day. Pt has a lower back incision that is covered with a ABD pad and has lidocaine patches to either side(placed on 10/19). All of this was removed by SN. Incision is well approximated and secured with steristrips. There is a small opening at most proximal area that has a scant amount of serous drainage and pt was placed on cephalexin before dc by [facility]. Immediate area is slightly red but does [...] and pt and sister are VERY interested. AUTOMOTIVE PARTS PERSON referral is in place to address. SN will also have AUTOMOTIVE PARTS PERSON address any other resources such as PASSPORT; pt could benefit from personal care assistance as well as homemaking and ways to make him more independent from his sister. Pt's surgery was at [facility] and he will follow up with [...] with his care but does live in [place] and is not available 24/10 See intervention [...] services: Patient agreeable to PT, OT and AUTOMOTIVE PARTS PERSON referrals. Patient declined N/A referrals. Additional concerns to be followed up on: NONE Next visit to focus on (be specific): incision check, CP assessment, continue diabetic teaching, follow up on AUTOMOTIVE PARTS PERSON referral for community resources. [facility] Work Phone: 10-21-2023 Miscellaneous Notes Patient accepted and confirmed home health start of care (SOC) for 10/22/23. Visit time established. documented in this encounter [facility] 10-21-2023 Telephone encounter Note Patient accepted and confirmed home health start of care (SOC) for 10/22/23. Visit time established. [facility] Work Phone: 10-20-2023 Telephone encounter Note Called patient to confirm and schedule start of care visit. No answer. Left voicemail [facility] 10-20-2023 Miscellaneous Notes Called patient to confirm and schedule start of care visit. No answer. Left voicemail documented in this encounter [facility] 10-18-2023 Note [facility] 10-18-2023 Note [facility] 10-17-2023 Note [facility] 10-15-2023 Note HNO ID: [id number] Author: JARETT MCMULLEN, RN Service: Nursing Author Type: Registered Nurse Type: Nursing Progress Note Filed: 10/15/2023 12:28 Note Text: Service dog in to see patient at this time. [facility] 10-13-2023 Note [facility] 10-13-2023 Telephone encounter Note Date/Time: 10/13/2023 9:21 AM Spoke with Janell Ashton @ phone #: [phone] - Preferred # for contact: [phone] Have you received help from a home care company in the last 60 days? NO Are you agreeable to [facility] services? YES What address will we be seeing you at? [address] [place] [address] [place], [place] [id number] Do you have any upcoming appointments or things we need to schedule around? 10/20/23, 10/25/23 Do you have a teachable CG or can you manage your care independently? Independently FLU SHOT NOT SURE WHERE [facility] Work Phone: 10-13-2023 Miscellaneous Notes Date/Time: 10/13/2023 9:21 AM Spoke with Janell Ashton @ phone #: [phone] - Preferred # for contact: [phone] Have you received help from a home care company in the last 60 days? NO Are you agreeable to [facility] services? YES What address will we be seeing you at? [address] [facility] [address] Do you have any upcoming appointments or things we need to schedule around? 10/20/23, 10/25/23 Do you have a teachable CG or can you manage your care independently? Independently FLU SHOT NOT SURE WHERE Called pt and sister Janell, left messages to call office, wanted to confirm home care services. Savanna Mayorga LPN documented in this encounter [facility] 10-12-2023 Telephone encounter Note Called and spoke with Shelia in providers office, she confirmed will follow for services. Savanna Mayorga LPN [facility] Work Phone: 10-12-2023 Miscellaneous Notes Called and spoke with Shelia in providers office, she confirmed will follow for services. Savanna Mayorga LPN documented in this encounter [facility] 10-12-2023 Telephone encounter Note Called pt and sister Janell, left messages to call office, wanted to confirm home care services. Savanna Mayorga LPN [facility] Work Phone: 10-09-2023 Note [facility] 10-06-2023 Note [facility] 10-04-2023 Note [facility] 08-04-2023 Telephone encounter Note Spoke with José Manuel Ashton's on August 04, 2023. Informed of results / instructions as stated above. Maryuri LAMBERT Romero states she will be taking José Manuel to a [place] for his potassium but he will still have to follow up here for his A1c. CLOSED [facility] 08-04-2023 Miscellaneous Notes Spoke with José Manuel Ashton's on August 04, 2023. Informed of results / instructions as stated above. Maryuri Romero MA states she will be taking José Manuel to a [facility] for his potassium but he will still have to follow up here for his A1c. CLOSED Called patients home and left VM to call back office at [phone]. Please give message below. Thank you I [...] patient is scheduled for surgery at the [facility] on 08/08/23. They are requesting surgical clearance for diabetes from Dr Peterson. We have not received their fax as of yet. Recommended she have them re-fax the form. Also, apparently he had recent labs drawn with [facility] including an updated A1c, recommended she [...] results to proceed. documented in this encounter [facility] 08-03-2023 Telephone encounter Note Called patients home and left VM to call back office at [phone]. Please give message below. [facility] 08-03-2023 Telephone encounter Note Thank you [...] received anything from the anaesthesia/surgical team HH [facility] Work Phone: 08-01-2023 Telephone encounter Note Pt called and stated that the Flomax capsules gets stuck in throat so he can't take it and would like it to be in tablet form or change medication. Pt also stated that he has not have the Proscar and would need a Rx for that, please advise. Julieta odonnell MA [facility] 08-01-2023 Miscellaneous Notes Pt called and stated that the Flomax capsules gets stuck in throat so he can't take it and would like it to be in tablet form or change medication. Pt also stated that he has not have the Proscar and would need a Rx for that, please advise. Julieta odonnell MA documented in this encounter [facility] 07-28-2023 Telephone encounter Note Received a call from patients (Janell) she state's patient is scheduled for surgery at the [facility] on 08/08/23. They are requesting surgical clearance for diabetes from Dr Peterson. We have not received their fax as of yet. Recommended she have them re-fax the form. Also, apparently he had recent labs drawn with [facility] including an updated A1c, recommended she [...] await documents and lab results to proceed. [facility] 07-12-2023 Note Jude Peterson [facility] 07-12-2023 History of Present illness Narrative [...] (no units) Date Value 06/04/2023 Negative Specific [place], Ur (no units) Date Value 06/04/2023 1.020 [...] quittin.2 Smokeless tobacco: Never Tobacco comments: Smokes [place] Vaping Use Vaping Use: Never used Substance [...] neg 02/17/2020 PSA 0.8, no Fhx of Court Monitor Assessment and Plan: Microhematuria- prior w/u neg, [...] surgery PSA ordered documented in this encounter [facility] 06-22-2023 History of Present illness Narrative [...] 2 diabetes, hypertension, hyperlipidemia, depression, colon to [facility] on 05/23/23 with polyp, lumbar radiculopathy, history [...] quittin.2 Smokeless tobacco: Never Tobacco comments: Smokes [place] Vaping Use Vaping Use: Never used Substance [...] Review Reviewed by Sebas Ocampo MD, Ph.D ([id number]) Comment (Serum Prot Electro) A reflex test [...] 3,715.7 Albumin/Creat Ratio <30 mg/g 5,008 (H) [place] Free, Serum 3.3 - 19.4 mg/L 57.0 (H) Lambda Free, Serum 5.7 - 26.3 mg/L 36.1 (H) K/L Ratio, Serum 0.26 - 1.65 1.58 DNA Antibody <=200 IU/mL 16 DNA Antibody Qualitative Interpretation Negative Negative MPA Result No M protein is identified. No M protein is identified. Staff Review ([facility]) Reviewed by Sebas Ocampo MD, Ph.D ([id number]) C3 86 - 166 mg/dL 147 C4 [...] follow-ups on file. documented in this encounter [facility] 06-20-2023 Evaluation note Diagnosis Stage 3a chronic kidney disease (HCC)- Primary Hypertension, essential Unspecified essential hypertension Vitamin D deficiency Unspecified vitamin D deficiency Other proteinuria Secondary hyperparathyroidism (HCC) Secondary hyperparathyroidism (of renal origin) documented in this encounter [facility]03-11-2024 NoteHNO ID: [id number] Author: KANWAL CALLE RN Service: Nursing Author [...] of this encounter (statuses as of 06/20/2023) [facility]03-11-2024 History of Past illness Narrative* Problem [...] of this encounter (statuses as of 06/22/2023) [facility]03-11-2024 History of Past illness Narrative* Problem [...] of this encounter (statuses as of 07/13/2023) [facility]03-09-2024 [facility]03-09-2024 NoteHNO ID: [id number] Author: NOTE, INTERFACE, ? Service: ? Author Type: ? Type: Progress Notes Filed: 06/10/2023 03:42 Note Text: Epic Scheduled Downtime: 06/10/2023 1:00:00 AM to 06/10/2023 3:24:[facility]03-07-2024 [facility]03-06-2024 [facility]03-04-2024 Note [facility]03-03-2024 [facility] 06-03-2023 [facility]03-01-2024 [facility]02-27-2024 [facility]02-26-2024 [facility]02-25-2024 [facility]02-20-2024 [facility]02-20-2024 History of Present illness Narrative* Jen Bergman, [...] YES Jen Bergman RN [facility] History of Present illness Narrative* Mónica [...] quittin.1 Smokeless tobacco: Never Tobacco comments: Smokes [place] Vaping Use Vaping Use: Never used Substance [...] DAILY (6 AM). 30 tablet 2 Insulin [place], Disposable, (COMFORT EZ PEN NEEDLES) 29 gauge [...] - Moderate This note was created using [employer] dictation software. You may find errors that were missed during proofreading. They are purely unintentional and if there are any concerns regarding this dictation, please do not hesitate to contact the dictating provider for clarification. Mónica Peterson MD [facility]02-16-2024 History of Present illness Narrative* Jen Bergman [...] 10/05/2022 Urine Albumin:Creatinine Ratio 01/23/2023 HbA1C 02/01/2023 Offal Roller plan for next outreach: Will follow-up in about a month. Signature: Jen Bergman RN May 19, 2023 documented in this encounterW[facility] Miscellaneous Notes* Telephone Encounter - Elisabeth Parekh - 05/12/2023 8:10 AM EST Spoke to patients sister who stated she handles calls for José Manuel . Notified of canceled appt due to provider being out of office. She did not want to reschedule the appointment. Thanks Elisabeth Parekh [facility] Miscellaneous Notes* Telephone Encounter - Juliette, Lily - 03/07/2023 12:25 PM ESTSummary: appointment cancellation Left voicemail at [phone] about rescheduling appt with Dr. Godinez. Left phone number for patient to call in. Tmr 03-07-23 12:23pm [facility] in [facility] History of Present illness Narrative* Jen [...] Understands and follows DASH diet Weight mgmt/activity Offal Roller plan for next outreach: Will follow-up in about 1 month. Signature: Jen Bergman RN January 27, 2023 documented in this encounterW[facility] History of Present illness Narrative* Mark [...] quittin.8 Smokeless tobacco: Never Tobacco comments: Smokes [place] Vaping Use Vaping Use: Never used Substance [...] 8 hours as needed for nausea/vomiting. Insulin [place], Disposable, (COMFORT EZ PEN NEEDLES) 29 gauge [...] Injection. Mark Godinez MD documented in this encounterW[facility]10-[facility]23 Miscellaneous Notes* Telephone Encounter - Valery [...] than patient: mendez Maciel Best contact number: [phone] Thank you, Rebecca Segundo January 06, 2023 10:09 AM documented in this encounterWadsworth-Rittman [facility]09-22-2023 Miscellaneous Notes* Telephone Encounter - JanesKenya - 12/23/2022 4:50 PM EDT Confirmation number: [id number] Consult to Pain Management Gave patient phone number to call as well, documented in this encounterWadsworth-Rittman Hospital09-22-2023 History of Present illness Narrative* Belgica Vega, - 12/23/2022 3:43 PM EDT Images from the original note were not included. Belgica Vega [address] [facility] [address] [place] [address] Visit Date: December 23, 2022 Mr.Jim Najma Ashton Date of : 1960 MRN/E #: [id number] History of Present Illness José Manuel Ashton [...] it.States sometimes takes trulicity.Patient to see new host/hostess head in [place] March 21, 2023. Pt indicates Janie Nieves in [place], he doesn't want to go to [place]. [...] 01/04/23. Per chart review patient to see [facility] December 29, 2022 Patient has history [...] of precordial pain, OTT, hypertension. Patient saw computer science instructor October 13, 2022..Patient had stress test patient [...] spine, referred him to spine and pain [place].. Patient seeing pain management patient to see [...] MRI pelvis 08/11/21:Results MRI PELVIS WO/W IVCON ([id number]) (Order [id number]) Patient Info Patient Name Sex José Manuel Holm ([id number]) Male 1960 08/11/2021 5:06 PM - Radiology, [place] In Impression IMPRESSION: Suggestion of postoperative changes in the mid rectal wall. No tumor was identified on the preoperative exam, no suspicious lesion on this exam. No pelvic lymphadenopathy. Pt had pelvic xr 07/01/22: Results XR PELVIS 1V AP (Order [id number]) Patient Info Patient Name Sex José Manuel Holm ([id number]) Male 1960 07/01/2022 1:45 PM - Binh [...] quittin.7 Smokeless tobacco: Never Tobacco comments: Smokes [place] Vaping Use Vaping Use: Never used Substance [...] 8 hours as needed for nausea/vomiting. Insulin [place], Disposable, (COMFORT EZ PEN NEEDLES) 29 gauge [...] to the nearest ED. documented in this encounterWadsworth-Rittman Hospital08-31-2023 History of Present illness Narrative* Dannie Kincaid Ceramic Engineer - 12/01/2022 10:00 AM EDT Lexiscan nuclear stress test completed. Patient verbalized understanding of test and pain scale. IVstarted by nursing staff prior to testing and removed by nursing staff at test end. documented in this encounterWadsworth-Rittman Hospital08-31-2023 Miscellaneous Notes* Addendum Note - Celena Rendon RN - 12/01/2022 9:00 AM EDTEncounter addended by: Celena Rendon RN on: 12/01/2022 11:21 AM Actions taken: Flowsheet accepted, MAR administration accepted documented in this encounterWadsworth-Rittman Hospital08-24-2023 History of Present illness Narrative* Jen Bergman, [...] Weight mgmt/activity No change (09/23/2020) Concerns: N/A Offal Roller plan for next outreach: Will follow up in about a month. Signature Jen Bergman RN November 24, 2022 documented in this encounterWadsworth-Rittman Hospital08-16-2023 Miscellaneous Notes* Telephone Encounter - Liyah [...] with any information. Was Patient Referred to [facility]/Seek Emergency Treatment (Y/N): N Did Patient Agree (Y/N): N/A Was An Attempt Made To Transfer The Patient To The Office (Y/N): N Were You Able To Reach Someone At The Office (Y/N): N/A If Yes - Patient Was Transferred To (Caregivers Name): N/A If No - Which [facility] Leadership Shirring Machine Operator Did You Speak With Regarding This Patient: N/A Was an appointment scheduled (Y/N): N Reason patient was requesting visit (RFV/signs and symptoms/diagnosis) : Medication Refill Request Person calling if other than patient: Self Return call to if other than patient: Self Best contact number: [phone] Thank you, Wilfredo Gabbie November 14, 2022 1:56 PM documented in this encounterWadsworth-Rittman Hospital08-10-2023 Miscellaneous Notes* Telephone Encounter - Candice Braun MD - 11/10/2022 7:00 AM EDT Reviewed all notes and labs. 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 He is already an established patient in [facility] practice. Of note, he was a no-show in February 2022. Plan: Please refer patient back to [place] office to his original provider since he [...] 09, 2022 2:16 PM documented in this encounterWadsworth-Rittman Hospital08-07-2023 Miscellaneous Notes* Telephone Encounter - Griselda Mayfield - 11/07/2022 8:01 AM EDT Consult to Neurology Confirmation number: [id number] documented in this encounterWadsworth-Rittman Hospital08-04-2023 Miscellaneous Notes* Telephone Encounter - Kenya Marrero - 11/04/2022 4:15 PM EDT Confirmation number: [id number] Consult to Dermatology documented in this encounterWadsworth-Rittman Hospital08-04-2023 Miscellaneous Notes* Telephone Encounter - Kenya Marrero - 11/04/2022 3:20 PM EDT Confirmation number: [id number] Consult to Endocrinology documented in this encounterWadsworth-Rittman Hospital08-04-2023 History of Present illness Narrative* Belgica Vega DO - 11/04/2022 3:04 PM EDT Images from the original note were not included. Belgica Vega [address] [address] Visit Date: November 04, 2022 Mr.Jim Najma Ashton Date of : 1960 MRN/E #: [id number] History of Present Illness José Manuel Ashton [...] Pt didn't want to see derm in [place] or [place]. Wasn't referred to [place]. Patient does have history of diabetes and [...] Dr. Baig, doesn't want to go to [place]. Patient has history of rectal cancer. Patient is status post colonoscopy October 24, [address] Ahmadi.Number of precancerous polyps were found on this examination and we shouldrepeat the colonoscopy in 1 year. Artem Ahmadi MD October 28, 2022 10:05 AM Patient has history of precordial pain, OTT, hypertension. Patient saw computer science instructor October 13, 2022. Lexiscan nuclear stress test has been ordered. Per note patient was asked to get referral for host/hostess head and dietitian to aggressively get his diabetes [...] medical problems including hypertension, hyperlipidemia, CKD and MEKIH. PAST MEDICAL HISTORY Diagnosis Date Adenocarcinoma in [...] quittin.5 Smokeless tobacco: Never Tobacco comments: Smokes [place] Vaping Use Vaping Use: Never used Substance [...] DAILY (6 AM). 30 tablet 2 Insulin [place], Disposable, (COMFORT EZ PEN NEEDLES) 29 gauge [...] Monocytes % 11/01/2022 8.1 % Final Abs [place] 11/01/2022 0.54 <0.87 k/uL Final Eosinophils % [...] Desk Reference: National Heart, Lung, and Blood [place]. National Institutes of Health. 2001: NIH Publication [...] (H) 74 - 99 mg/dL Final The [place] Diabetes Association (ADA) provides guidance for cutoff [...] Standards of Medical Care in Diabetes 2016, [place] Diabetes Association. Diabetes Care. 2016.39(Suppl 1). BUN [...] 13.6 (H) 4.3 - 5.6 % Final [place] Diabetes Association guidelines indicate that patients with HgbA1c in the range 5.7-6.4% are at increased risk for development of diabetes, and intervention by lifestyle modification may be beneficial. HgbA1c greater or equal to 6.5% is considered diagnostic of diabetes. Estimated Average Glucose 11/01/2022 344 mg/dL Final eAG: (Estimated average glucose) is a calculated value from HgbA1c and is veterans service representative of the average blood glucose [...] to the nearest ED. documented in this encounterWadsworth-Rittman Hospital08-02-2023 Miscellaneous Notes* Telephone Encounter - Belgica Vega DO - 11/02/2022 7:44 PM EDT Please notify patient received lab, low-fat low-cholesterol diet recommended. Low-carb low concentrated sweets diet recommended, A1c has increased to 13.6 Can discuss results at appointment Thank you, Belgica Vega D.O. documented in this encounterWadsworth-Rittman Hospital08-02-2023 History of Present illness Narrative* Noé [...] (no units) Date Value 09/15/2022 1+ Specific [place], Ur (no units) Date Value 09/15/2022 1.020 [...] mouth once daily.^Disp: 90 capsule^Rfl: 0 Insulin [place], Disposable, (COMFORT EZ PEN NEEDLES) 29 gauge [...] quittin.5 Smokeless tobacco: Never Tobacco comments: Smokes [place] Vaping Use Vaping Use: Never used Substance [...] neg 02/17/2020 PSA 0.75, no Fhx of Court Monitor Assessment and Plan: Microhematuria- prior w/u neg, [...] cont meds for now documented in this encounterWadsworth-Rittman Hospital08-02-2023 Miscellaneous Notes* Telephone Encounter - Hazel [...] 28, 2022 10:05 AM documented in this encounterWadsworth-Rittman Hospital08-01-2023 Miscellaneous Notes* Telephone Encounter - Jen [...] Thanks. Jen Bergman RN documented in this encounterWadsworth-Rittman Hospital08-01-2023 History of Present illness Narrative* Jen Bregman RN - 11/01/2022 11:35 AM EDT PRIMARY [...] Weight mgmt/activity No change (09/23/2020) Concerns: N/A Offal Roller plan for next 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 Signature Jen Bergman RN November 01, 2022 documented in this encounterWadsworth-Rittman Hospital07-14-2023 Miscellaneous Notes* Telephone Encounter - Belgica [...] advise. Denia Anders LPN documented in this encounterWadsworth-Rittman Hospital07-13-2023 History of Present illness Narrative* Sukumar [...] quittin.5 Smokeless tobacco: Never Tobacco comments: Smokes [place] Vaping Use Vaping Use: Never used Substance [...] tablet by mouth DAILY (6 AM). Insulin [place], Disposable, (COMFORT EZ PEN NEEDLES) 29 gauge [...] to get a referral to see an host/hostess head and a dietitian to aggressively get his [...] accordingly. Sukumar Toney MD documented in this encounterWadsworth-Rittman Hospital07-13-2023 Nurse Note* Lulu Owen MA - 10/13/2022 9:37 AM EDT Patient has no cardiac complaints today. Lulu Owen CMA documented in this encounterWadsworth-Rittman Hospital07-12-2023 History of Present illness Narrative* Jen [...] Weight mgmt/activity No change (09/23/2020) Concerns: N/A Offal Roller plan for next 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 Signature Jen Bergman RN October 12, 2022 documented in this encounterWadsworth-Rittman Hospital07-10-2023 History of Present illness Narrative* Mark [...] quittin.5 Smokeless tobacco: Never Tobacco comments: Smokes [place] Vaping Use Vaping Use: Never used Substance [...] 8 hours as needed for nausea/vomiting. Insulin [place], Disposable, (COMFORT EZ PEN NEEDLES) 29 gauge [...] which may represent strain or possibly myositis. Staff Assistant: [facility] Transcribe Date/Time: Sep 01 2022 7:57A Dictated by : DOREEN GRAJEDA MD This examination was interpreted and the report reviewed and electronically signed by: DOREEN GRAJEDA MD on Sep 01 2022 8:08AM EST Results-Findings * * *Final Report* * * DATE OF EXAM: Aug 30 2022 10:22AM [facility] 0168 - MRI ARTHROGRAM HIP LT / PROCEDURE REASON: multiple diagnoses * * * * Physician Interpretation * * * * LEFT HIP MRI ARTHROGRAM CLINICAL INDICATION: Left hip pain. Concern for labral tear or flexor tendon injury. COMPARISON: MRI left hip 09/09/2020 TECHNIQUE: Large amkvc-wt-hekg coronal T1, axial and coronal STIR sequences of the pelvis and both hips. Small reqai-ji-tadv coronal, sagittal and oblique axial fat saturated [...] labrum is limited due to the large avtlf-fc-cieq. Sacroiliac joints and symphysis pubis are maintained. [...] bleeding, clots, bleeding disorders. documented in this encounterWadsworth-Rittman Hospital07-03-2023 History of Present illness Narrative* Jen Bergmna RN - 10/03/2022 3:24 PM EDT PRIMARY [...] Weight mgmt/activity No change (09/23/2020) Concerns: N/A Offal Roller plan for next outreach: Will follow up next wk. Chetan Bergman RN October 03, 2022 documented in this encounterWadsworth-Rittman Hospital06-29-2023 History of Present illness Narrative* Jen [...] Weight mgmt/activity No change (09/23/2020) Concerns: N/A Offal Roller plan for next outreach: Will follow up next wk. Chetan Bergman RN September 29, 2022 documented in this encounterWadsworth-Rittman Hospital06-28-2023 Miscellaneous Notes* Telephone Encounter - Kenya Marrero - 09/28/2022 12:22 PM EDT Confirmation number: [id number] Consult to Cardiology Confirmation number: [id number] Consult to Dermatology Confirmation number: [id number] Consult to Nephrology documented in this encounterWadsworth-Rittman Hospital06-28-2023 History of Present illness Narrative* Belgica Vega DO - 09/28/2022 11:06 AM EDT Transitional Care Management TCM Eligibility Documentation The following information was gathered during the initial Patient Outreach Encounter. Date of Outreach: 09/19/2022 Outreach Attempt 1: Contact Made Date of Discharge 09/16/2022 Some recent data might be hidden Summary Discharged from: [facility] Admit Date: September 14, 2022, discharged September [...] lumbar spine:Results MRI LUMBAR SPINE WO IVCON ([id number]) (Order [id number]) Patient Info Patient Name Sex José Manuel Ashton ([id number]) Male 1960 09/15/2022 4:43 PM - Radiology, [...] Diabetes, general surgery visit documented in this encounterWadsworth-Rittman Hospital06-23-2023 History of Present illness Narrative* Binh [...] quittin.4 Smokeless tobacco: Never Tobacco comments: Smokes [place] Vaping Use Vaping Use: Never used Substance [...] 8 hours as needed for nausea/vomiting. Insulin [place], Disposable, (COMFORT EZ PEN NEEDLES) 29 gauge [...] needed. Binh Lake DO documented in this encounterWadsworth-Rittman Hospital06-16-2023 History of Present illness Narrative* Meera Contreras [...] 10/21/2022 final post op documented in this encounterWadsworth-Rittman Hospital06-16-2023 Instructions* Patient Instructions* Meera Contreras OD - 09/16/2022 2:19 PM EDT RIGHT EYE: Stop Ciprofloxacin (flores) Continue Ketorolac (rasmussen) and Prednisolone (pink) 3 times daily x 1 week then 2 times daily x 1 week then 1 time daily x 1 week then stop STOP LEFT EYE drops documented in this encounterWadsworth-Rittman Hospital06-08-2023 History of Past illness Narrative* Problem Noted Date Resolved Date Nuclear senile cataract of right eye 09/08/2022 09/08/2022 Nuclear sclerotic cataract of left eye 3 08/18/2022 Abdominal discomfort 01/18/2022 01/19/2022 Nuclear senile cataract of both eyes 11/05/2021 09/09/2022 Microscopic hematuria 03/08/2021 01/17/2022 Weakness 05/05/2020 06/15/2020 Decreased mobility and endurance 05/05/2020 06/15/2020 documented as of this encounter (statuses as of 09/16/2022) [facility] History of Past illness Narrative* Problem Noted Date Resolved Date Nuclear senile cataract of right eye 09/08/2022 09/08/2022 Nuclear sclerotic cataract of left eye 3 08/18/2022 Abdominal discomfort 01/18/2022 01/19/2022 Nuclear senile cataract of both eyes 11/05/2021 09/09/2022 Microscopic hematuria 03/08/2021 01/17/2022 Weakness 05/05/2020 06/15/2020 Decreased mobility and endurance 05/05/2020 06/15/2020 documented as of this encounter (statuses as of 09/28/2022) [facility] of Past illness Narrative* Problem Noted Date Resolved Date Nuclear senile cataract of right eye 09/08/2022 09/08/2022 Nuclear sclerotic cataract of left eye 3 08/18/2022 Abdominal discomfort 01/18/2022 01/19/2022 Nuclear senile cataract of both eyes 11/05/2021 09/09/2022 Microscopic hematuria 03/08/2021 01/17/2022 Weakness 05/05/2020 06/15/2020 Decreased mobility and endurance 05/05/2020 06/15/2020 documented as of this encounter (statuses as of 09/28/2022) [facility] of Past illness Narrative* Problem Noted Date Resolved Date Nuclear senile cataract of right eye 09/08/2022 09/08/2022 Nuclear sclerotic cataract of left eye 3 08/18/2022 Abdominal discomfort 01/18/2022 01/19/2022 Nuclear senile cataract of both eyes 11/05/2021 09/09/2022 Microscopic hematuria 03/08/2021 01/17/2022 Weakness 05/05/2020 06/15/2020 Decreased mobility and endurance 05/05/2020 06/15/2020 documented as of this encounter (statuses as of 09/29/2022) [facility] of Past illness Narrative* Problem Noted Date Resolved Date Nuclear senile cataract of right eye 09/08/2022 09/08/2022 Nuclear sclerotic cataract of left eye 3 08/18/2022 Abdominal discomfort 01/18/2022 01/19/2022 Nuclear senile cataract of both eyes 11/05/2021 09/09/2022 Microscopic hematuria 03/08/2021 01/17/2022 Weakness 05/05/2020 06/15/2020 Decreased mobility and endurance 05/05/2020 06/15/2020 documented as of this encounter (statuses as of 09/30/2022) [facility] of Past illness Narrative* Problem Noted Date Resolved Date Nuclear senile cataract of right eye 09/08/2022 09/08/2022 Nuclear sclerotic cataract of left eye 3 08/18/2022 Abdominal discomfort 01/18/2022 01/19/2022 Nuclear senile cataract of both eyes 11/05/2021 09/09/2022 Microscopic hematuria 03/08/2021 01/17/2022 Weakness 05/05/2020 06/15/2020 Decreased mobility and endurance 05/05/2020 06/15/2020 documented as of this encounter (statuses as of 10/04/2022) [facility] of Past illness Narrative* Problem Noted Date Diagnosed Date Resolved Date Nuclear senile cataract of right eye 09/08/2022 09/08/2022 Nuclear sclerotic cataract of left eye 08/18/2022 08/18/2022 Abdominal discomfort 01/18/2022 022 Nuclear senile cataract of both eyes 11/05/2021 09/09/2022 Microscopic hematuria 03/08/20212021 Weakness 05/05/2020 06/15/2020 Decreased mobility and endurance 05/05/2020 06/15/2020 documented as of this encounter (statuses as of 10/11/2022) [facility] illness Narrative* Problem Noted Date Diagnosed Date Resolved Date Nuclear senile cataract of right eye 09/08/2022 09/08/2022 Nuclear sclerotic cataract of left eye 08/18/2022 08/18/2022 Abdominal discomfort 01/18/2022 022 Nuclear senile cataract of both eyes 11/05/2021 09/09/2022 Microscopic hematuria 03/08/20212021 Weakness 05/05/2020 06/15/2020 Decreased mobility and endurance 05/05/2020 06/15/2020 documented as of this encounter (statuses as of 10/13/2022) [facility] illness Narrative* Problem Noted Date Diagnosed Date Resolved Date Nuclear senile cataract of right eye 09/08/2022 09/08/2022 Nuclear sclerotic cataract of left eye 08/18/2022 08/18/2022 Abdominal discomfort 01/18/2022 022 Nuclear senile cataract of both eyes 11/05/2021 09/09/2022 Microscopic hematuria 03/08/20212021 Weakness 05/05/2020 06/15/2020 Decreased mobility and endurance 05/05/2020 06/15/2020 documented as of this encounter (statuses as of 10/13/2022) [facility] illness Narrative* Problem Noted Date Diagnosed Date Resolved Date Nuclear senile cataract of right eye 09/08/2022 09/08/2022 Nuclear sclerotic cataract of left eye 08/18/2022 08/18/2022 Abdominal discomfort 01/18/2022 022 Nuclear senile cataract of both eyes 11/05/2021 09/09/2022 Microscopic hematuria 03/08/20212021 Weakness 05/05/2020 06/15/2020 Decreased mobility and endurance 05/05/2020 06/15/2020 documented as of this encounter (statuses as of 10/15/2022) [facility] illness Narrative* Problem Noted Date Diagnosed Date Resolved Date Nuclear senile cataract of right eye 09/08/2022 09/08/2022 Nuclear sclerotic cataract of left eye 08/18/2022 08/18/2022 Abdominal discomfort 01/18/2022 022 Nuclear senile cataract of both eyes 11/05/2021 09/09/2022 Microscopic hematuria 03/08/20212021 Weakness 05/05/2020 06/15/2020 Decreased mobility and endurance 05/05/2020 06/15/2020 documented as of this encounter (statuses as of 11/01/2022) [facility] illness Narrative* Problem Noted Date Diagnosed Date Resolved Date Nuclear senile cataract of right eye 09/08/2022 09/08/2022 Nuclear sclerotic cataract of left eye 08/18/2022 08/18/2022 Abdominal discomfort 01/18/20222 022 Nuclear senile cataract of both eyes 11/05/2021 09/09/2022 Microscopic hematuria 03/08/20212021 Weakness 05/05/2020 06/15/2020 Decreased mobility and endurance 05/05/2020 06/15/2020 documented as of this encounter (statuses as of 11/02/2022) [facility] Narrative* Problem Noted Date Diagnosed Date Resolved Date Nuclear senile cataract of right eye 09/08/2022 09/08/2022 Nuclear sclerotic cataract of left eye 08/18/2022 08/18/2022 Abdominal discomfort 01/18/20222 022 Nuclear senile cataract of both eyes 11/05/2021 09/09/2022 Microscopic hematuria 03/08/20212021 Weakness 05/05/2020 06/15/2020 Decreased mobility and endurance 05/05/2020 06/15/2020 documented as of this encounter (statuses as of 11/03/2022) [facility] Narrative* Problem Noted Date Diagnosed Date Resolved Date Nuclear senile cataract of right eye 09/08/2022 09/08/2022 Nuclear sclerotic cataract of left eye 08/18/2022 08/18/2022 Abdominal discomfort 01/18/2022 022 Nuclear senile cataract of both eyes 11/05/2021 09/09/2022 Microscopic hematuria 03/08/20212021 Weakness 05/05/2020 06/15/2020 Decreased mobility and endurance 05/05/2020 06/15/2020 documented as of this encounter (statuses as of 11/03/2022) [facility] Narrative* Problem Noted Date Diagnosed Date Resolved Date Nuclear senile cataract of right eye 09/08/2022 09/08/2022 Nuclear sclerotic cataract of left eye 08/18/2022 08/18/2022 Abdominal discomfort 01/18/2022 022 Nuclear senile cataract of both eyes 11/05/2021 09/09/2022 Microscopic hematuria 03/08/20212021 Weakness 05/05/2020 06/15/2020 Decreased mobility and endurance 05/05/2020 06/15/2020 documented as of this encounter (statuses as of 11/04/2022) [facility] Narrative* Problem Noted Date Diagnosed Date Resolved Date Nuclear senile cataract of right eye 09/08/2022 09/08/2022 Nuclear sclerotic cataract of left eye 08/18/2022 08/18/2022 Abdominal discomfort 01/18/2022 022 Nuclear senile cataract of both eyes 11/05/2021 09/09/2022 Microscopic hematuria 03/08/20212021 Weakness 05/05/2020 06/15/2020 Decreased mobility and endurance 05/05/2020 06/15/2020 documented as of this encounter (statuses as of 11/05/2022) [facility] Narrative* Problem Noted Date Diagnosed Date Resolved Date Nuclear senile cataract of right eye 09/08/2022 09/08/2022 Nuclear sclerotic cataract of left eye 08/18/2022 08/18/2022 Abdominal discomfort 01/18/2022 022 Nuclear senile cataract of both eyes 11/05/2021 09/09/2022 Microscopic hematuria 03/08/20212021 Weakness 05/05/2020 06/15/2020 Decreased mobility and endurance 05/05/2020 06/15/2020 documented as of this encounter (statuses as of 11/05/2022) [facility] Narrative* Problem Noted Date Diagnosed Date Resolved Date Nuclear senile cataract of right eye 09/08/2022 09/08/2022 Nuclear sclerotic cataract of left eye 08/18/2022 08/18/2022 Abdominal discomfort 01/18/2022 022 Nuclear senile cataract of both eyes 11/05/2021 09/09/2022 Microscopic hematuria 03/08/20212021 Weakness 05/05/2020 06/15/2020 Decreased mobility and endurance 05/05/2020 06/15/2020 documented as of this encounter (statuses as of 11/07/2022) [facility] Narrative* Problem Noted Date Diagnosed Date Resolved Date Nuclear senile cataract of right eye 09/08/2022 09/08/2022 Nuclear sclerotic cataract of left eye 08/18/2022 08/18/2022 Abdominal discomfort 01/18/2022 022 Nuclear senile cataract of both eyes 11/05/2021 09/09/2022 Microscopic hematuria 03/08/20212021 Weakness 05/05/2020 06/15/2020 Decreased mobility and endurance 05/05/2020 06/15/2020 documented as of this encounter (statuses as of 11/07/2022) [facility] Narrative* Problem Noted Date Diagnosed Date Resolved Date Nuclear senile cataract of right eye 09/08/2022 09/08/2022 Nuclear sclerotic cataract of left eye 08/18/2022 08/18/2022 Abdominal discomfort 01/18/2022 022 Nuclear senile cataract of both eyes 11/05/2021 09/09/2022 Microscopic hematuria 03/08/20212021 Weakness 05/05/2020 06/15/2020 Decreased mobility and endurance 05/05/2020 06/15/2020 documented as of this encounter (statuses as of 11/10/2022) [facility] History of Past illness Narrative* Problem Noted Date Diagnosed Date Resolved Date Nuclear senile cataract of right eye 09/08/2022 09/08/2022 Nuclear sclerotic cataract of left eye 08/18/2022 08/18/2022 Abdominal discomfort 01/18/2022 022 Nuclear senile cataract of both eyes 11/05/2021 09/09/2022 Microscopic hematuria 03/08/20212021 Weakness 05/05/2020 06/15/2020 Decreased mobility and endurance 05/05/2020 06/15/2020 documented as of this encounter (statuses as of 11/16/2022) [facility] History of Past illness Narrative* Problem Noted Date Diagnosed Date Resolved Date Nuclear senile cataract of right eye 09/08/2022 09/08/2022 Nuclear sclerotic cataract of left eye 08/18/2022 08/18/2022 Abdominal discomfort 01/18/2022 022 Nuclear senile cataract of both eyes 11/05/2021 09/09/2022 Microscopic hematuria 03/08/20212021 Weakness 05/05/2020 06/15/2020 Decreased mobility and endurance 05/05/2020 06/15/2020 documented as of this encounter (statuses as of 11/22/2022) [facility] History of Past illness Narrative* Problem Noted Date Diagnosed Date Resolved Date Nuclear senile cataract of right eye 09/08/2022 09/08/2022 Nuclear sclerotic cataract of left eye 08/18/2022 08/18/2022 Abdominal discomfort 01/18/2022 022 Nuclear senile cataract of both eyes 11/05/2021 09/09/2022 Microscopic hematuria 03/08/20212021 Weakness 05/05/2020 06/15/2020 Decreased mobility and endurance 05/05/2020 06/15/2020 documented as of this encounter (statuses as of 11/25/2022) [facility] History of Past illness Narrative* Problem Noted Date Diagnosed Date Resolved Date Nuclear senile cataract of right eye 09/08/2022 09/08/2022 Nuclear sclerotic cataract of left eye 08/18/2022 08/18/2022 Abdominal discomfort 01/18/2022 022 Nuclear senile cataract of both eyes 11/05/2021 09/09/2022 Microscopic hematuria 03/08/20212021 Weakness 05/05/2020 06/15/2020 Decreased mobility and endurance 05/05/2020 06/15/2020 documented as of this encounter (statuses as of 2022) [facility] of Past illness Narrative* Problem Noted Date Diagnosed Date Resolved Date Nuclear senile cataract of right eye 09/08/2022 09/08/2022 Nuclear sclerotic cataract of left eye 08/18/2022 08/18/2022 Abdominal discomfort 01/18/2022 022 Nuclear senile cataract of both eyes 11/05/2021 09/09/2022 Microscopic hematuria 03/08/20212021 Weakness 05/05/2020 06/15/2020 Decreased mobility and endurance 05/05/2020 06/15/2020 documented as of this encounter (statuses as of 2022) [facility] History of Past illness Narrative* Problem Noted Date Diagnosed Date Resolved Date Nuclear senile cataract of right eye 09/08/2022 09/08/2022 Nuclear sclerotic cataract of left eye 08/18/2022 08/18/2022 Abdominal discomfort 01/18/2022 022 Nuclear senile cataract of both eyes 11/05/2021 09/09/2022 Microscopic hematuria 03/08/20212021 Weakness 05/05/2020 06/15/2020 Decreased mobility and endurance 05/05/2020 06/15/2020 documented as of this encounter (statuses as of 12/24/2022) [facility] of Past illness Narrative* Problem Noted Date Diagnosed Date Resolved Date Nuclear senile cataract of right eye 09/08/2022 09/08/2022 Nuclear sclerotic cataract of left eye 08/18/2022 08/18/2022 Abdominal discomfort 01/18/2022 022 Nuclear senile cataract of both eyes 11/05/2021 09/09/2022 Microscopic hematuria 03/08/20212021 Weakness 05/05/2020 06/15/2020 Decreased mobility and endurance 05/05/2020 06/15/2020 documented as of this encounter (statuses as of 12/24/2022) [facility] History of Past illness Narrative* Problem Noted Date Diagnosed Date Resolved Date Nuclear senile cataract of right eye 09/08/2022 09/08/2022 Nuclear sclerotic cataract of left eye 08/18/2022 08/18/2022 Abdominal discomfort 01/18/2022 022 Nuclear senile cataract of both eyes 11/05/2021 09/09/2022 Microscopic hematuria 03/08/20212021 Weakness 05/05/2020 06/15/2020 Decreased mobility and endurance 05/05/2020 06/15/2020 documented as of this encounter (statuses as of 01/07/2023) [facility] of Past illness Narrative* Problem Noted Date Diagnosed Date Resolved Date Nuclear senile cataract of right eye 09/08/2022 09/08/2022 Nuclear sclerotic cataract of left eye 08/18/2022 08/18/2022 Abdominal discomfort 01/18/2022 022 Nuclear senile cataract of both eyes 11/05/2021 09/09/2022 Microscopic hematuria 03/08/20212021 Weakness 05/05/2020 06/15/2020 Decreased mobility and endurance 05/05/2020 06/15/2020 documented as of this encounter (statuses as of 01/24/2023) [facility] History of Past illness Narrative* Problem Noted Date Diagnosed Date Resolved Date Nuclear senile cataract of right eye 09/08/2022 09/08/2022 Nuclear sclerotic cataract of left eye 08/18/2022 08/18/2022 Abdominal discomfort 01/18/2022 022 Nuclear senile cataract of both eyes 11/05/2021 09/09/2022 Microscopic hematuria 03/08/20212021 Weakness 05/05/2020 06/15/2020 Decreased mobility and endurance 05/05/2020 06/15/2020 documented as of this encounter (statuses as of 01/27/2023) [facility] History of Past illness Narrative* Problem Noted Date Diagnosed Date Resolved Date Nuclear senile cataract of right eye 09/08/2022 09/08/2022 Nuclear sclerotic cataract of left eye 08/18/2022 08/18/2022 Abdominal discomfort 01/18/2022 022 Nuclear senile cataract of both eyes 11/05/2021 09/09/2022 Microscopic hematuria 03/08/20212021 Weakness 05/05/2020 06/15/2020 Decreased mobility and endurance 05/05/2020 06/15/2020 documented as of this encounter (statuses as of 03/07/2023) [facility] History of Past illness Narrative* Problem Noted Date Diagnosed Date Resolved Date Nuclear senile cataract of right eye 09/08/2022 09/08/2022 Nuclear sclerotic cataract of left eye 08/18/2022 08/18/2022 Abdominal discomfort 01/18/2022 022 Nuclear senile cataract of both eyes 11/05/2021 09/09/2022 Microscopic hematuria 03/08/20212021 Weakness 05/05/2020 06/15/2020 Decreased mobility and endurance 05/05/2020 06/15/2020 documented as of this encounter (statuses as of 05/12/2023) [facility] History of Past illness Narrative* Problem Noted Date Diagnosed Date Resolved Date Nuclear senile cataract of right eye 09/08/2022 09/08/2022 Nuclear sclerotic cataract of left eye 08/18/2022 08/18/2022 Abdominal discomfort 01/18/2022 022 Nuclear senile cataract of both eyes 11/05/2021 09/09/2022 Microscopic hematuria 03/08/20212021 Weakness 05/05/2020 06/15/2020 Decreased mobility and endurance 05/05/2020 06/15/2020 documented as of this encounter (statuses as of 05/19/2023) [facility] History of Past illness Narrative* Problem Noted Date Diagnosed Date Resolved Date Nuclear senile cataract of right eye 09/08/2022 09/08/2022 Nuclear sclerotic cataract of left eye 08/18/2022 08/18/2022 Abdominal discomfort 01/18/2022 022 Nuclear senile cataract of both eyes 11/05/2021 09/09/2022 Microscopic hematuria 03/08/20212021 Weakness 05/05/2020 06/15/2020 Decreased mobility and endurance 05/05/2020 06/15/2020 documented as of this encounter (statuses as of 05/23/2023) [facility] History of Past illness Narrative* Problem Noted Date Diagnosed Date Resolved Date Nuclear senile cataract of right eye 09/08/2022 09/08/2022 Nuclear sclerotic cataract of left eye 08/18/2022 08/18/2022 Abdominal discomfort 01/18/2022 022 Nuclear senile cataract of both eyes 11/05/2021 09/09/2022 Microscopic hematuria 03/08/20212021 Weakness 05/05/2020 06/15/2020 Decreased mobility and endurance 05/05/2020 06/15/2020 documented as of this encounter (statuses as of 05/23/2023) [facility] Miscellaneous Notes* Telephone Encounter - Simeon Vásquez - 09/05/2022 10:03 AM EDT Called and informed patient to arrive at [address] [place] [address], [place] [address] at 11:45 am for 09/08/22 surgerywith Renetta Meza MD. Explained that patient is not to arrive any earlier. Also reminded patient to refrain from eating or drinking for 8 hours prior to arrival for surgery, except for up to 12 oz of clear liquids up until 09:45 am, and to begin eyedrops in the right eye on09/06/22. Informed that [employer] and text messages do not contact them with the arrival time for surgery. If they receive a message from [employer], or a text to confirm an appointment, they are to make sure of the date for the appointment. Patient's sister states understanding and is agreeable. documented in this encounterW[facility] History of Present illness Narrative* [place]h [place], [...] quittin.4 Smokeless tobacco: Never Tobacco comments: Smokes [place] Vaping Use Vaping Use: Never used Substance [...] 8 hours as needed for nausea/vomiting. Insulin [place], Disposable, (COMFORT EZ PEN NEEDLES) 29 gauge [...] him to see the spine and pain [place] to discuss possible medications to help his intense chronic pain. I did give him 1 week of Percocet to try to help this pain. Total of half hour spent with this patient of which greater than 50% time spent in direct patient contact and coordination of care. Binh Lake DO documented in this encounterW[facility] History of Present illness Narrative* [place], [...] 30, 2022 10:19 AM documented in this encounterWadsworth-[facility] Surgical operation note* Brief Op Note - Lamonte Curtis MD, - 08/30/2022 8:17 AM EDT S/p successful left hip injection for magnetic resonance arthrogram. EBL < 1 cc. No immediate complication. documented in this encounterWadsworth-[facility] History of Past illness Narrative* Problem Noted Date Resolved Date Nuclear sclerotic cataract of left eye 3 08/18/2022 Abdominal discomfort 01/18/2022 01/19/2022 Microscopic hematuria 03/08/2021 01/17/2022 Weakness 05/05/2020 06/15/2020 Decreased mobility and endurance 05/05/2020 06/15/2020 documented as of this encounter (statuses as of 08/31/2022) [facility] History of Past illness Narrative* Problem Noted Date Resolved Date Nuclear sclerotic cataract of left eye 3 08/18/2022 Abdominal discomfort 01/18/2022 01/19/2022 Microscopic hematuria 03/08/2021 01/17/2022 Weakness 05/05/2020 06/15/2020 Decreased mobility and endurance 05/05/2020 06/15/2020 documented as of this encounter (statuses as of 08/31/2022) [facility] History of Past illness Narrative* Problem Noted Date Resolved Date Nuclear sclerotic cataract of left eye 3 08/18/2022 Abdominal discomfort 01/18/2022 01/19/2022 Microscopic hematuria 03/08/2021 01/17/2022 Weakness 05/05/2020 06/15/2020 Decreased mobility and endurance 05/05/2020 06/15/2020 documented as of this encounter (statuses as of 08/31/2022) [facility] History of Past illness Narrative* Problem Noted Date Resolved Date Nuclear sclerotic cataract of left eye 3 08/18/2022 Abdominal discomfort 01/18/2022 01/19/2022 Microscopic hematuria 03/08/2021 01/17/2022 Weakness 05/05/2020 06/15/2020 Decreased mobility and endurance 05/05/2020 06/15/2020 documented as of this encounter (statuses as of 09/02/2022) [facility] History of Past illness Narrative* Problem Noted Date Resolved Date Nuclear sclerotic cataract of left eye 3 08/18/2022 Abdominal discomfort 01/18/2022 01/19/2022 Microscopic hematuria 03/08/2021 01/17/2022 Weakness 05/05/2020 06/15/2020 Decreased mobility and endurance 05/05/2020 06/15/2020 documented as of this encounter (statuses as of 09/02/2022) [facility] History of Past illness Narrative* Problem Noted Date Resolved Date Nuclear sclerotic cataract of left eye 3 08/18/2022 Abdominal discomfort 01/18/2022 01/19/2022 Microscopic hematuria 03/08/2021 01/17/2022 Weakness 05/05/2020 06/15/2020 Decreased mobility and endurance 05/05/2020 06/15/2020 documented as of this encounter (statuses as of 09/05/2022) [facility] Miscellaneous Notes* Telephone Encounter - Meche Rowland - 08/15/2022 11:21 AM EDT Called and informed patient to arrive at [address] [place] [address] at 7:40 am for 08/18/22 surgery with Renetta Meza MD. Also reminded patient to refrain from eating or drinking for 8 hours prior to arrival for surgery, and to begin eyedrops in the left eye on 08/16/22. Patient states understanding and is agreeable. documented in this encounterWadsworth-[facility]05-[facility] History of Present illness Narrative* Belgica Vega, DO - 08/12/2022 3:46 PM EDT Images from the original note were not included. [facility] Belgica Vega [address] [place] [address] [facility] Visit Date: August 12, 2022 Mr.Jim Najma Ashton Date of : 1960 MRN/E #: [id number] SUBJECTIVE: José Manuel Ashton is a 61 [...] 5.6 % Final Comment: Location:[facility], [address] [place] [address], [facility] Point of care (POC) Hemoglobin A1c [...] specific diabetes management situations: The POC device school curriculum developer provides a normal range of 4.2% to 6.5% for the HGBA1C POC test. However, the [place] Diabetes Association guidelines indicate that patients with [...] quittin.3 Smokeless tobacco: Never Tobacco comments: Smokes [place] Vaping Use Vaping Use: Never used Substance [...] DAILY (6 AM). 30 tablet 2 Insulin [place], Disposable, (COMFORT EZ PEN NEEDLES) 29 gauge [...] to the nearest ED. documented in this encounterWadsworth-[facility]05-[facility] Miscellaneous Notes* Telephone Encounter - Maria D Evgeny - 08/09/2022 1:13 PM EDT Called patient again, left voicemail that he has an appointment tomorrow at 3 pm at the [address] [place] [address]. [address] office location and to call [phone] if unable to keep the appointment or if any questions. * Telephone Encounter - Maria D Pepper - 08/09/2022 9:50 AM EDT Attempted to call patient to remind him of eye measurement appointment tomorrow, 08/10/22 at 3:00pm in the [place] office location at [address] [place] [address]. No answer, and unable to leave message, voicemail box full. documented in this encounterWadsworth-[facility]04-27-2023 Miscellaneous Notes* Telephone Encounter - Meche Rowland - 07/28/2022 9:03 AM EDT Patient's sister Janell left message in surgery scheduling: Patient is sick and cannot come in todayfor IOL measurements (ascan). Called and spoke with Janell. Rescheduled appointment to 08/10/22 at 3pm. documented in this encounterWadsworth-[facility]04-26-2023 Miscellaneous Notes* Telephone Encounter - Meche Rowland - 07/27/2022 10:37 AM EDT Called and confirmed appointment for IOL measurements (ascan) on 07/28/22 at 1:[address] [place] [address], [facility] The pre op history and physical exam has been scheduled for 08/12/22. Advised patient to call us at [phone] if any questions or if unable to keep the appointment. documented in this encounterWadsworth-[facility]04-13-2023 Instructions* Patient Instructions* Renetta Meza MD - [...] the morning of surgery documented in this encounterWadsworth-[facility]man [facility]04-13-[facility]23 History of Present illness Narrative* Renetta Meza MD - 07/14/2022 12:58 PM EDT (E11.6244) Mild nonproliferative diabetic retinopathy of both eyes [...] patient was offered a surgery/procedure at a [facility] facility. The surgeon/proceduralist and patient have [...] NO Previous refractive surgery: NO Preferred office: [place] Intracameral phenylephrine and vigamox Special notes Brimonidine CALL JANELL [phone] (sister, contact) Drops for Surgery: Polytrim (clear/white) [...] if applicable, including the morning of surgery (H35.6364) Early dry stage nonexudative age-related macular degeneration of both eyes Comment: Mottling, no fluid Plan: Monitor RTC PEIOL OS then OD I have confirmed and edited as necessary the relevant ophthalmic history, ROS, and the neuro exam findings as obtained by others. I have seen and examined this patient. I have discussed the case and the management of this patient's care with the Resident/Fellow/Compliance Mgr, if applicable. I also have reviewed and agree with the assessment and plan as stated above and agree with all of its relevant components. Renetta Meza MD July 14, 2022 1:02 PM documented in this encounterWadsworth-[facility]03-31-[facility] History of Present illness Narrative* Binh [...] quittin.2 Smokeless tobacco: Never Tobacco comments: Smokes [place] Vaping Use Vaping Use: Never used Substance [...] 8 hours as needed for nausea/vomiting. Insulin [place], Disposable, (COMFORT EZ PEN NEEDLES) 29 gauge [...] bleeding, clots, bleeding disorders. documented in this encounterWadsworth-[facility]03-29-2023 History of Present illness Narrative* Belgica Vega DO - 06/29/2022 4:32 PM EDT Images from the original note were not included. Belgica Vega [address] [place] [address] Visit Date: June 29, 2022 Mr.Jim Najma Ashton Date of : 1960 MRN/E #: [id number] History of Present Illness José Manuel Ashton [...] quittin.2 Smokeless tobacco: Never Tobacco comments: Smokes [place] Vaping Use Vaping Use: Never used Substance [...] DAILY (6 AM). 30 tablet 2 Insulin [place], Disposable, (COMFORT EZ PEN NEEDLES) 29 gauge [...] Desk Reference: National Heart, Lung, and Blood [place]. National Institutes of Health. 2001: NIH Publication [...] (A) 74 - 99 mg/dL Final The [place] Diabetes Association (ADA) provides guidance for cutoff [...] Standards of Medical Care in Diabetes 2016, [place] Diabetes Association. Diabetes Care. 2016.39(Suppl 1). BUN [...] units of vitamin D daily,Which is available [id number] - CHOLECALCIFEROL (VITAMIN D3) 1,250 MCG (50,000 [...] to the nearest ED. documented in this encounterWadsworth-[facility]03-28-2023 Miscellaneous Notes* Telephone Encounter - Belgica Vega DO - 06/28/2022 6:15 PM EDT This encounter was opened in error. documented in this encounterWadsworth-Rittman [facility]03-22-2023 History of Present illness Narrative* Juancho Todd, - 06/22/2022 7:18 AM EDT June 22, 2022 An order has been received for PAP titration study from Dr. Belgica Vega DO, A. Sleep Center Staff/Surgical Brace Maker Staff Orders. Visit prep complete - Please refer to the sleep study order (under procedures tab) for protocol details and special instructions. The sleep study is scheduled for 06/22/2022. Insurance: Payor: [facility] MEDICARE / Plan: [facility] DUAL COMPLETE HMO SNP / Product Type: Medicare / Payer/Plan Subscr Sex Relation Sub. Ins. ID Effective Group Num 1. [facility] MEDICARE * JOSÉ MANUEL ASHTON 1960 Male Self [id number] 04/03/22 [address] 2. MEDICAID [place] -* JOSÉ MANUEL ASHTON 1960 Male Self [id number] 11/04/21 [address] June 22, 2022 [...] AM, 06/22/2022 Brice Dixon documented in this encounterWadsworth-[facility]03-01-2023 History of Present illness Narrative* Rory [...] one time a week. 4capsule 0 Insulin [place], Disposable, (COMFORT EZ PEN NEEDLES) 29 gauge [...] quittin.1 Smokeless tobacco: Never Tobacco comments: Smokes [place] Vaping Use Vaping Use: Never used Substance [...] nonspecific lung nodules/densities. 6 mm sclerotic focus [id number] rib, indeterminate. - Order CT chest wo IV contrast. If CT chest is unremarkable, follow up in 6 months with lab work prior to visit. Call for questions or concerns. Rory Mendoza MD I spent a total of 40 minutes on the date of the service which included preparing to see the patient, [id number] patient care, completing clinical documentation, obtaining and/or reviewing separately obtained history, performing a medically appropriate examination, counseling and educating the pat ient/family/caregiver, ordering medications, tests, or procedures, independently interpreting results (not separately reported), communicating results to the patient/family/caregiver, and care coordination (not separately reported). documented in this encounterWadsworth-[facility]02-16-2023 Miscellaneous Notes* Telephone Encounter - Griselda Mayfield - 05/19/2022 8:56 AM EST Consult to Oncology Confirmation number: [id number] documented in this encounterWadsworth-Ritt[facility]02-15-2023 History of Present illness Narrative* Belgica Vega, DO - 05/18/2022 3:26 PM EST Images from the original note were not included. Belgica Vega [address] [facility] [address] [place] [address] Visit Date: May 18, 2022 Mr.Jim Najma Ashton Date of : 1960 MRN/E #: [id number] History of Present Illness José Manuel Ashton [...] also has history of microalbuminuria. Patientdid see applied exercise physiologist during January 2022. Per note indicates stage IIIa CKD presumed secondary to uncontrolled diabetes, uncontrolled hypertension and obstruction from BPH. Patient is not being prescr ibed medication by nephrology. Patient has history of hyperlipidemia. Cholesterol was 286 during September 2021 patient was prescribed Crestor 5 mg. 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 During last office visit which was a hospital discharge follow-up.. 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 That medication has since dropped off of his med list. Patient was being prescribed Lipitor 40 mg by hospitalist at [facility].Pt isnt taking lipitor or Crestor... Cholesterol was [...] is being prescribed Pt was referred to home health care social worker recently. Patient indicates he has troubles remembering [...] quittin.1 Smokeless tobacco: Never Tobacco comments: Smokes [place] Vaping Use Vaping Use: Never used Substance [...] mouth once daily. 90 tablet 3 Insulin [place], Disposable, (COMFORT EZ PEN NEEDLES) 29 gauge [...] 74 - 99 mg/dL Final Comment: Location:[facility] [place], [address] [place] [address], [facility] The Accu-Chek Inform II glucose meter [...] 5.6 % Final Comment: Location:[facility], [address] [place] [address], [facility] Point of care (POC) Hemoglobin A1c [...] specific diabetes management situations: The POC device school curriculum developer provides a normal range of 4.2% to 6.5% for the HGBA1C POC test. However, the [place] Diabetes Association guidelines indicate that patients with [...] to the nearest ED. documented in this encounterWadsworth-[facility]02-08-2023 History of Present illness Narrative* Jen [...] Weight mgmt/activity No change (09/23/2020) Concerns: N/A Offal [employer] plan for next 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 Signature Jen Bergman RN May 11, 2022 documented in this encounterWadsworth-Ritt[facility]02-03-2023 Miscellaneous Notes* Telephone Encounter - BRANDIE [...] me know. Thanks, Manjula documented in this encounterWadsworth-Rittman Hospital02-01-2023 History of Present illness Narrative* Noé [...] (no units) Date Value 03/28/2022 4+ Specific [place], Ur (no units) Date Value 03/28/2022 1.015 [...] 1 tablet by mouth once daily. Insulin [place], Disposable, (COMFORT EZ PEN NEEDLES) 29 gauge [...] quittin.0 Smokeless tobacco: Never Tobacco comments: Smokes [place] Vaping Use Vaping Use: Never used Substance [...] neg 02/17/2020 PSA 0.75, no Fhx of Court Monitor Assessment and Plan: Microhematuria- prior w/u neg, [...] Level: 4 - Moderate documented in this encounterWadsworth-Rittman Hospital01-24-2023 History of Present illness Narrative* Jen [...] Weight mgmt/activity No change (09/23/2020) Concerns: N/A Offal Roller plan for next 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 Signature Jen Bergman RN April 26, 2022 documented in this encounterWadsworth-Rittman Hospital01-19-2023 History of Present illness Narrative* Jen [...] Weight mgmt/activity No change (09/23/2020) Concerns: N/A Offal Roller plan for next outreach: Will follow up next wk. Signature Jen Bergman RN April 21, 2022 documented in this encounterWadsworth-Rittman Hospital01-11-2023 History of Present illness Narrative* Belgica Vega DO - 04/13/2022 4:13 PM EST Transitional Care Management TCM Eligibility Documentation The following information was gathered during the initial Patient Outreach Encounter. Date of Outreach: 04/05/2022 Outreach Attempt 1: Contact Not Made Outreach Attempt 2: Contact Not Made Date of Discharge 04/01/2022 Some recent data might be hidden Summary Discharged from: [facility] Admit Date: March 28, 2022, discharge April [...] also has history of microalbuminuria. Patientdid see applied exercise physiologist during January 2022. Per note indicates stage [...] mg. 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 During last office visit which was a hospital discharge follow-up.. 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 That medication has since dropped off of his med list. Patient was being prescribed Lipitor 40 mg by hospitalist at [facility].Pt isnt taking lipitor or Crestor... Cholesterol was [...] on med list Pt was referred to home health care social worker recently. Patient indicates he has troubles remembering things. Patient indicates he brought his sister along to help remember things. Per sis, she doesn't want him to take all these pills, doesn't feel necessary. Pt uses [facility]. Review of Systems Constitutional: Negative for [...] 13, 2022 4:13 PM documented in this encounterWadsworth-Rittman Hospital01-10-2023 History of Present illness Narrative* CHARLEY Bernabe - 04/12/2022 8:58 AM EST Provider Action / FYI PCP Action FYI Primary Care Social Work Assessment Date of Service: April 12, 2022 (Patient has been identified by name and date of ) Patient Name: José Manuel Ashton Referred by: Physician Patient Offal Roller: Jen Bergman RN Hand-In Received: Yes Reason [...] attempt to discuss with the patient. Social Pump Tender: Meche Sanders (Sister) [phone] Caregiver Status: Patient is not a caregiver for another person. Marital Status: Single Parents: did not discuss Children: not responsible for minor children Siblings: Meche Sanders (Sister) [phone]; Marek Ashton (Brother) Emotional Support animals: none Stress: Lives with brother and vdwfbz-hf-utm and needs to move to his own housing. Primary Language: Argentine Ethnicity/Cultural identification: Not Worship Affiliation: did not disclose Gender Identity: Male Sexual Orientation: Straight (not lesbian or smith) Status (Including History of Combat Experience): None Living Arrangements: Home Resides with: Brother and Ipfnpj-dn-Fnw Issues or Concerns with Home Environment: Patient [...] Services: none Employment/Employer: disabled Source of Income: [facility] Insurance Provider(s): Payor: MEDICARE / Plan: MEDICARE A AND B / Product Type: Medicare / Medication Adherence: I am convinced of the importance of my prescription medication:Agree mostly - 0 I worry that my prescription medication will do more harm than good to me:Disagree mostly - 0 I feel financially burdened by my owd-ux-rwspzy expenses for my prescription medication:Disagree mostly -0 Patient is categorized as:low risk < 2 Patient Stated Goals: community resources Richards of Choice Explained: N/A Summary: PCSW received [...] 12, 2022 TIME: 8:58 AM CONTACT #: [phone] documented in this encounterWadsworth-Rittman Hospital01-04-2023 History of Present illness Narrative* Jen Bergman RN - 04/06/2022 2:35 PM EST TRANSITIONAL CARE MANAGEMENT (TCM) COMMUNITY MONITORING PROGRAM - [place] SUMMARY: Contact made with patient: No - 2nd unsuccessful attempt - end outreach and close encounter Outreach ended * Jen Bergman RN - 04/05/2022 11:43 AM EST TRANSITIONAL CARE MANAGEMENT (TCM) COMMUNITY MONITORING PROGRAM - ELLIOTT Pt has a hospital f/u appointment on 04/13/22 at 3:40p SUMMARY: Pt discharged from [facility] on 04/01/22. RISK 27 Admitted for: REASON [...] TCM Home Visit Referral Source of Stratification: [facility] Admission Status: Discharged Readmission Risk Score: 27 JANELL Score: 7 Patient meets program referral criteria: No Patient does not qualify for High Risk TCM Home Visit program due to: Discharged home, does not meet program criteria Jen Bergman RN April 05, 2022 11:43 AM documented in this [facility]12-28-2022 Miscellaneous Notes* Telephone Encounter - Sissy Mayen - 03/30/2022 9:05 AM EST Primary care social work consult Auto-referred documented in this [facility]12-21-2022 Miscellaneous Notes* Telephone Encounter - Samia Thomason LPN - 03/23/2022 10:51 AM EST ----- Message from Soren Byrd MD sent at 03/22/2022 5:20 PM EST ----- Please call patient and inform results. Vitamin D levels were low. Start taking Vitamin D3 2,000 international unit(s) daily, available w/oprescription. documented in this [facility]12-21-2022 Miscellaneous Notes* Telephone Encounter - Liyah [...] unit(s) daily, available w/oprescription. documented in this [facility]12-15-2022 History of Present illness Narrative* Jen Bergman RN - 03/17/2022 2:37 PM EST TRANSITION CARE MANAGEMENT (TCM) FOLLOW-UP NOTE Patient identified by name and date of : NO Summary: PCC attempted TCM f/u call ([facility] 02/15/22) - not able to leave a msg. Concerns: N/A Offal Roller plan for next outreach: Will follow up in about 3wks. Signature Jen Bergman RN March 17, 2022 documented in this encounterWadsworth-Rittman Hospital12-09-2022 History of Present illness Narrative* Jen Bergman RN - 03/11/2022 11:41 AM EST PRIMARY CARE COORDINATION FOLLOW-UP NOTE Patient identified by name and date of . NO Summary: PCC attempted to call pt for TCM f/u ([facility] 02/15/22) - not able to leave [...] Weight mgmt/activity No change (09/23/2020) Concerns: N/A Offal Roller plan for next outreach: Will follow up next wk. Signature Jen Bergman, RN March 11, 2022 documented in this encounterWadsworth-Rittman Hospital12-08-2022 Miscellaneous Notes* Telephone Encounter - Bunny Daniels - 03/10/2022 11:06 AM EST ----- Message from Saskia Ramirez sent at 03/10/2022 10:38 AM EST ----- Reason for the call/escalation: Harsih with [facility] calling for updated medication list Was Patient Referred to [facility]/Seek Emergency Treatment (Y/N): no Did Patient Agree (Y/N): n/a Was An Attempt Made To Transfer The Patient To The Office (Y/N): no Were You Able To Reach Someone At The Office (Y/N): n/a If Yes - Patient Was Transferred To (Caregivers Name): n/a If No - Which [facility] Leadership Shirring Machine Operator Did You Speak With Regarding This Patient: n/a Was an appointment scheduled (Y/N): no Reason patient was requesting visit (RFV/signs and symptoms/diagnosis) : [facility] Person calling if other than patient: Harish Return call to if other than patient: Harish Best contact number: [phone] , fax# [phone] Thank you, Saskia Ramirez March 10, 2022 10:38 AM documented in this encounterWadsworth-Rittman Hospital11-29-2022 Miscellaneous Notes* Telephone Encounter - Griselda Mayfield - 03/01/2022 4:09 PM EST Consult to Endocrinology Confirmation number: [id number] documented in this encounterWadsworth-Rittman Hospital11-29-2022 History of Present illness Narrative* Belgica Vega DO - 03/01/2022 2:48 PM EST Images from the original note were not included. Belgica Brandon Je [address] [facility] [address] [place] [address] Visit Date: March 01, 2022 Mr.Jim Najma Ashton Date of : 1960 MRN/E #: [id number] History of Present Illness José Manuel Ashton is a 61 year old male. Patient presents to the clinic today for follow-up hypertension, diabetes HPI Pt here with faina Maciel. Patient has history of hypertension and lower extremity edema.. BP today 156/94. BP during last office visit caz201/85., Recheck 135/83. during January 2022. Patient was [...] Pt indicates doesn't want to go to [place].. Pt hasnt taken any DM meds x 4 days. Glucose was 170 on January 27, 2022. Patient does have history of CKD stage III AAA. Patient also has history of microalbuminuria. Patient did see applied exercise physiologist during January 2022. Per note indicates stage [...] 17, 2022, discharge January 20, [address] [facility].. Per note: REASON FOR HOSPITALIZATION: Risk [...] mg. 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 Patienthad indicated previously he had did not know why he did not forklift picker the Crestor. That medication has since dropped off of his med list. Patient is being prescribed Lipitor 40 mg by hospitalist at [facility].Pt isnt taking lipitor.. Cholesterol was 260 triglyceride [...] quittin.9 Smokeless tobacco: Never Tobacco comments: Smokes [place] Vaping Use Vaping Use: Never used Substance [...] mouth once daily. 90 tablet 3 Insulin [place], Disposable, (COMFORT EZ PEN NEEDLES) 29 gauge [...] Urine 01/21/2022 Trace (A) Negative Final Specific [place]cas, Ur 01/21/2022 >=1.030 (A) 1.005 - 1.030 [...] (A) 74 - 99 mg/dL Final Comment: Location:[facility], [address] [place] [address] The Accu-Chek Inform II glucose meter has [...] Desk Reference: National Heart, Lung, and Blood [place]. National Institutes of Health. 2001: NIH Publication [...] (A) 74 - 99 mg/dL Final Comment: Location:[facility], [address] [address] The Accu-Chek Inform II glucose meter has [...] (A) 74 - 99 mg/dL Final Comment: Location:[place] [address] The Accu-Chek Inform II glucose meter has [...] (A) 74 - 99 mg/dL Final Comment: Location:[place] [address] The Accu-Chek Inform II glucose meter has [...] (A) 74 - 99 mg/dL Final Comment: Location:[address], [place], [place], [address] The Accu-Chek Inform II glucose meter has [...] (A) 74 - 99 mg/dL Final The [place] Diabetes Association (ADA) provides guidance for cutoff [...] Standards of Medical Care in Diabetes 2016, [place] Diabetes Association. Diabetes Care. 2016.39(Suppl 1). BUN [...] (A) 74 - 99 mg/dL Final Comment: Location:[place] [address] The Accu-Chek Inform II glucose meter has [...] (A) 74 - 99 mg/dL Final Comment: Location:[address], [facility] The Accu-Chek Inform II glucose [...] (A) 74 - 99 mg/dL Final Comment: Location:[place] [address] The Accu-Chek Inform II glucose meter has [...] (A) 74 - 99 mg/dL Final Comment: Location:[place] [address] The Accu-Chek Inform II glucose meter has [...] (A) 74 - 99 mg/dL Final Comment: Location:[place] [address] The Accu-Chek Inform II glucose meter has [...] (A) 74 - 99 mg/dL Final Comment: Location:[place] [address] The Accu-Chek Inform II glucose meter has [...] 89 74 - 99 mg/dL Final Comment: Location:[place] [address] The Accu-Chek Inform II glucose meter has [...] (A) 74 - 99 mg/dL Final Comment: Location:[place] [address] The Accu-Chek Inform II glucose meter has [...] (A) 74 - 99 mg/dL Final Comment: Location:[place] [address] The Accu-Chek Inform II glucose meter has [...] (A) 74 - 99 mg/dL Final Comment: Location:[address], [facility] The Accu-Chek Inform II glucose [...] 76 74 - 99 mg/dL Final Comment: Location:[address], [facility] The Accu-Chek Inform II glucose [...] (A) 74 - 99 mg/dL Final Comment: Location:[place] [address] The Accu-Chek Inform II glucose meter has [...] (A) 74 - 99 mg/dL Final Comment: Location:[place] [address] The Accu-Chek Inform II glucose meter has [...] (A) 74 - 99 mg/dL Final Comment: Location:[place] [address] The Accu-Chek Inform II glucose meter has [...] 65 74 - 99 mg/dL Final Comment: Location:[place] [address] The Accu-Chek Inform II glucose meter has [...] 84 74 - 99 mg/dL Final Comment: Location:[place] [address] The Accu-Chek Inform II glucose meter has [...] (A) 74 - 99 mg/dL Final Comment: Location:[place] [address] The Accu-Chek Inform II glucose meter has [...] 95 74 - 99 mg/dL Final Comment: Location:[place] [address] The Accu-Chek Inform II glucose meter has [...] (A) 74 - 99 mg/dL Final The [place] Diabetes Association (ADA) provides guidance for cutoff [...] Standards of Medical Care in Diabetes 2016, [place] Diabetes Association. Diabetes Care. 2016.39(Suppl 1). BUN [...] (A) 74 - 99 mg/dL Final Comment: Location:[facility], [address] [place] [address], [facility] The Accu-Chek Inform II glucose [...] (A) 74 - 99 mg/dL Final Comment: Location:[facility], [address] [place] [address], [facility] The Accu-Chek Inform II glucose [...] (A) 74 - 99 mg/dL Final The [place] Diabetes Association (ADA) provides guidance for cutoff [...] Standards of Medical Care in Diabetes 2016, [place] Diabetes Association. Diabetes Care. 2016.39(Suppl 1). BUN [...] please visit the Change in Procalcitonin Calculator, [email or web address]. CRP 01/26/2022 0.3 <0.9 mg/dL Final Glucose, Point of Care 01/26/2022 159 (A) 74 - 99 mg/dL Final Comment: Location:[place] [address] The Accu-Chek Inform II glucose meter has [...] (A) 74 - 99 mg/dL Final Comment: Location:[place] [address] The Accu-Chek Inform II glucose meter has [...] (A) 74 - 99 mg/dL Final Comment: Location:[place] [address] The Accu-Chek Inform II glucose meter has [...] 73 74 - 99 mg/dL Final Comment: Location:[place] [address] The Accu-Chek Inform II glucose meter has [...] (A) 74 - 99 mg/dL Final Comment: Location:[place] [address] The Accu-Chek Inform II glucose meter has [...] to the nearest ED. documented in this encounterWadsworth-Rittman Hospital11-23-2022 Miscellaneous Notes* Telephone Encounter - Stephanie Walker - 02/23/2022 1:30 PM EST Tried to reach out to schedule colonoscopy screening and the voicemail was full and was unable to leave message. Stephanie Walker February 23, 2022 1:31 PM documented in this encounterWadsworth-Rittman Hospital11-21-2022 Miscellaneous Notes* Telephone Encounter - Emma Mari - 02/21/2022 4:56 PM EST No Show Documentation José Manuel Ashton no showed for an appointment on 02/21/2022 with Janie Pickett APRN.ACCELERATOR TECHNICIAN at 3:00 pm. He was scheduled for [...] 21, 2022 4:57 PM documented in this encounterWadsworth-Rittman Hospital11-21-2022 History of Present illness Narrative* Jen Bergman RN - 02/21/2022 3:24 PM EST TRANSITIONAL CARE MANAGEMENT (TCM) COMMUNITY MONITORING PROGRAM - E[place]IOTT SUMMARY: Pt discharged from [facility] on 02/15/22. Pt discharged from [facility] on 01/20/22. Admitted for: Hospital Problem List [...] and date of : YES Spoke to [facility] Summary: PCC called SNF re pt status. Pt was D/C'd on 02/15/22. Signature Jen Bergman RN February 21, 2022 documented in this encounterWadsworth-Rittman Hospital11-21-2022 History of Present illness Narrative* Janie Pickett APRN.ACCELERATOR TECHNICIAN - 02/21/2022 11:29 AM EST Subjective Important [...] AST ALT Alkaline Phosphatase ok Moved from [facility] at some point. Was taking actos plus Metformin. Eventually Primary Care Provider Added basal insulin. 10/2020: first time office visit with Janie Pickett APRN.ACCELERATOR TECHNICIAN for diabetes management. [facility] reviewed prior to today's office visit. Any changes made at our last diabetes management visit were abstracted accordingly (if applicable). Today's Office Visit: Orals: Actos 45 mg daily, Metformin ER 500 mg 2 tabs at breakfast and dinner, Basal insulin (dosed in units) Supper dose: [id number] Other: trulicity 1.5 mg, self monitoring blood [...] quittin.8 Smokeless tobacco: Never Tobacco comments: Smokes [place] Vaping Use Vaping Use: Never used Substance [...] tablets before breakfast and before supper Insulin [place], Disposable, (COMFORT EZ PEN NEEDLES) 29 gauge [...] this visit. Physical Exam documented in this encounterWadsworth-Rittman Hospital10-28-2022 History of Present illness Narrative* Jen Bergman RN - 01/28/2022 8:42 AM EDT TRANSITION CARE MANAGEMENT (TCM) DISCHARGE TO POST ACUTE FACILITY POST ACUTE TRANSFER SUMMARY: -Pt discharged from [facility] on 01/27/22. RISK 29 -Post Acute Facility Admitted to SNF. Discharge Disposition Discharge Disposition Skilled Care Residential Residential Referral Information Agency Name [facility] Address [address] , [place] [address] -Admitted for: REASON FOR HOSPITALIZATION: Risk of physical harm to self, Inability to care for self, and Failure of outpatient psychiatric management DISCHARGE DIAGNOSIS: PRIMARY: Mood Disorder Mood Disorder NOS Substance induced mood disorder Cannabis use disorder Suspect MDD recurrent Alcohol use disorder Medical diagnoses include IRDM2, HTN, HLD, CKD3, rectal cancer, spinal stenosis, 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Enpjfwbd22-66-4417 NoteHNO ID: [id number] Author: Luis Carlos Short Jr., MD Service: [...] yesterday) SIGNATURE: Sarah Ventura (more content not included)...[facility] 01-26-2022 NoteHNO ID: [id number] Author: Mimi Benton RN Service: ? Author Type: Registered Nurse Type: Progress Notes Filed: 01/26/2022 5:38 AM Note Text: Assumed care of patient at 1930. He is alert and oriented, pleasant and cooperative. Pleasantly social with staff and peers. Denies SI/HI/AVH. Cooperative with HS meds, then retired to bed after snack, where he appeared to sleep through the night without sign of distress.[facility] 01-25-2022 NoteHNO ID: [id number] Author: Brigitte Carlisle MD Service: Psychiatry Author [...] plan, per patient's request. Aim d/c to [facility] rehab facility within next few days. Luis Carlos Short Jr, MD January 25, 2022 12:55 PM PROGRESS NOTE BEHAVIORAL HEALTH SERVICE DATE: 01/25/2022 SERVICE TIME: 10:20 AM The Interdisciplinary team met and reviewed treatment goals and discharge planning. Subjective [facility] disheveled hair and is sitting alone eating. Reports that he is doing ok today. Wanting the team to call his sister Janell and have her updated on the plan. Is ok with going to SNF as long as it is not the facility in [place]. Denies any issues with his medications. Feels that he is slowly improving. Does not report SI/AVH. Sister's number (Janell) [phone] Objective PHYSICAL EXAM: BP 134/70 Pulse 86 [...] and alternatives to the (more content not included)...[facility] 01-25-2022 NoteHNO ID: [id number] Author: Mimi Benton RN Service: ? Author [...] at 0600 was scanned twice at 0ml. [facility] HospitalCkhshvkr16-28-5757 NoteHNO ID: [id number] Author: Corky Rodarte MD Service: Urology Author [...] January 24, 2022 TIME: 6:36 PM PAGER: [address] [place], [place] [address]10-24-2022 NoteHNO ID: [id number] Author: Kylah Orantes MD Service: ? Author Type: Physician Type: Progress Notes Filed: 02/27/2022 8:27 PM Note Text: [facility] - General Progress Note JOSÉ MANUEL ASHTON : 1960 AGE: 61 SEX: M CSN: [id number] [facility]: [facility] LOCATION: [address] DATE OF SERVICE: 01/24/2022 This is a [...] quittin.9 Smokeless tobacco: Never Tobacco comments: Smokes [place] Vaping Use Vaping Use: Never used Substance [...] reviewed and negative. [facility] Most recent images Reviewed [...] edema No goiter Kylah Orantes M.D. Internal MedicineSt. Vincent HospitalGfdlwnhp02-89-1158 NoteHNO ID: [id number] Author: Sarah Noguera DO Service: Psychiatry Author [...] Encouraging that patient willing to participate in shelter rehab care upon discharge. Optimize antidepressant and anxiolytic (venlafaxine) and augmenting with mood stabilizer (Depakote). Aim d/c by end week to SNF near [facility] in [place], [place]. Luis Carlos Short Jr, MD January [...] GAF: -40-31 Some impairm (more content not included)...[facility] 01-24-2022 NoteHNO ID: [id number] Author: Domingo Lopez RN Service: Nursing Author Type: Registered Nurse Type: Nursing Progress Note Filed: 01/24/2022 6:01 AM Note Text: 2300 - 0730: 0000: pt observed asleep in bed. 0600: pt slept approximately [address] [facility] HospitalFndvudyr57-95-5851 NoteHNO ID: [id number] Author: Corky Rodarte MD Service: Urology Author [...] January 23, 2022 TIME: 2:30 PM PAGER: 789[facility] [id number] NoteHNO ID: [id number] Author: Kylah Orantes MD Service: ? Author Type: Physician Type: Progress Notes Filed: 02/25/2022 12:30 AM Note Text: [facility] Progress Note JOSÉ MANUEL ASHTON : 1960 AGE: 61 SEX: M CSN: [id number] [facility]: [facility] LOCATION: 6[address] DATE OF [...] quittin.9 Smokeless tobacco: Never Tobacco comments: Smokes [place] Vaping Use Vaping Use: Never used Substance [...] edema No goiter Kylah Orantes M.D. Internal MedicineSt. Vincent HospitalJnbqatwe29-87-2162 NoteHNO ID: [id number] Author: Kylah Orantes MD Service: ? Author Type: Physician Type: Progress Notes Filed: 02/20/2022 8:03 PM Note Text: [facility] - General Progress Note JOSÉ MANUEL ASHTON : 1960 AGE: 61 SEX: M CSN: [id number] [facility]: Y[facility] LOCATION: [address] DATE OF SERVICE: 01/22/2022 This is a [...] quittin.8 Smokeless tobacco: Never Tobacco comments: Smokes [place] Vaping Use Vaping Use: Never used Substance [...] edema No goiter Kylah Orantes M.D. Internal MedicineSt. Vincent HospitalGilciamz34-18-3801 NoteHNO ID: [id number] Author: Miriam Jennings APRN.ACCELERATOR TECHNICIAN Service: Psychiatry Author Type: Nurse Practitioner Type: [...] moderate Imminent Physical Self (more content not included)...[facility] HospitalOtgyrjnf10-24-5197 NoteHNO ID: [id number] Author: Mimi Benton RN Service: ? Author Type: Registered Nurse Type: Progress Notes Filed: 01/21/2022 5:31 AM Note Text: Assumed care of patient at 1999. He is alert and oriented, passively cooperative. Denies SI/HI. Cooperative with medications, and appeared to sleep through the night without distress.[facility] HospitalXniskvry11-93-7597 NoteHNO ID: [id number] Author: Chele Mcginnis RN Service: Nursing Author [...] behavior Target Date Short Term Goals: 01/27/22 Jail Goals: Patient will demonstrate optimal level of functioning;Patient/support system will verbalize intent to comply with medication and treatment after discharge Target Date Corporate Traffic Manager Goals: 01/27/22 Interventions - Nursing: Obtain baseline [...] Term Goals: Refrain from self injurious behavior Corporate Traffic Manager Goals: Identify positive alternatives to self-injurious behavior [...] Ashton DATE: January 20, 2022 TIME: 5:48 [facility]10-20-2022 NoteHNO ID: [id number] Author: Teresa Diego APRN.ACCELERATOR TECHNICIAN Service: Hospital Medicine Author Type: Nurse Practitioner [...] Assessment AND Plan: - Referred by OP applied exercise physiologist Dr Kennedy for concern of worsening depression [...] (HCC) POA: Yes Assessment AND Plan: - Filter Press Operator 1.1, 1.3 at baseline. - Limits nephrotoxins and trend daily labs. Abdominal pain - Resolved, tolerating diet. - CT AP non acute - ADAT, continue bowel regimen. Dispo: Patient medically stable to transfer to unit, [address] Orantes will continue to follow along. Discussed with intake and Dr Olivas, patient accepted to N. Teresa Diego, MSN, ACCELERATOR TECHNICIAN [facility] 01/2022 10:30am For inpatients: I spent 25 minutes in the visit, with more than 50% of the total ghfh-eg-xxey time of the visit in counseling / coordination of care. [facility] [id number] NoteHNO ID: [id number] Author: Kylah Orantes MD Service: ? Author Type: Physician Type: Progress Notes Filed: 01/24/2022 9:34 PM Note Text: [facility] - General Progress Note JOSÉ MANUEL ASHTON : 1960 AGE: 61 SEX: M CSN: [id number] [facility]: [facility] LOCATION: [facility] ATTENDING PHYSICIAN: LUIS CARLOS SHORT JR DATE [...] follow up. Kylah Orantes M.D. Internal Medicine BARTHOLOMEW:[id number] NoteHNO ID: [id number] Author: Rafal Carroll PA-C Service: Psychiatry Author Type: Physician Coin Machine Operator Type: Plan of Care Filed: 01/20/2022 10:42 AM Note Text: PLAN OF CARE Patient referred to [facility] on 01/19 for voluntary admission given concerns for his depression to be affecting his quality of life and his ability to care for himself. Per primary team, patient is medically ready as of 01/19/2022. Per [facility], 01/20/22 @0815, Pt presented [to Dr. Hoffman], depression appears to be secondary to medical needs, wants to review chart and will make recommendations after that. Will call back after that should be after 2pm. Received a call from CLASSIFIED ADVERTISING MANAGER Teresa Diego with concerns for delayed transfer, [...] Olivas @10:35AM, patient will be transferred to [address] [place], [place] [address]32210-20-2022 NoteHNO ID: [id number] Author: Kylah Orantes MD Service: ? Author Type: Physician Type: Progress Notes Filed: 01/19/2022 10:43 PM Note Text: [facility] - General Progress Note JOSÉ MANUEL ASHTON : 1960 AGE: 61 SEX: M CSN: [id number] [facility]: [facility] [place]: [facility] ATTENDING PHYSICIAN: Kylah Orantes M.D. DATE [...] quittin.8 Smokeless tobacco: Never Tobacco comments: Smokes [place] Vaping Use Vaping Use: Never used Substance [...] 33 Units SUBCUTANEOUS AT BEDTIME Teresa Diego APRN.ACCELERATOR TECHNICIAN 33 Units at 01/19/222207 atropine 0.5 mg injection 0.5 mg INTRAVENOUS PRN Radha Mack APRN.ACCELERATOR TECHNICIAN NaCl 0.9% iv flush bag 20 mL INTRAVENOUS PRN Radha Mack APRN.ACCELERATOR TECHNICIAN sodium chloride 0.9 % (flush) 3-5 mL (BD POSIFLUSH) 3-5 mL INTRAVENOUS q 12 H Radha Mack APRN.ACCELERATOR TECHNICIAN 5 mL at 01/19/227 aluminum-magnesium hydroxide-simethicone 200-200-20 mg/5 mL 30 mL (MAALOX,MYLANTA,MAG-AL PLUS) 30 mL ORAL DAILY PRN Radha Mack APRN.ACCELERATOR TECHNICIAN acetaminophen 650 mg tab(s) (TYLENOL) 650 mg ORAL q 6 H PRN Radha Mack APRN.ACCELERATOR TECHNICIAN 650 mg at 01/18/22 0818 insulin lispro injection (rapid acting) (ADMELOG) SUBCUTANEOUS AT BEDTIME Radha Mack APRN.ACCELERATOR TECHNICIAN 1 Units at 01/19/227 hydrALAZINE 10 mg injection (APRESOLINE) 10 mg INTRAVENOUS q 6 H PRN Radha Mack APRN.ACCELERATOR TECHNICIAN lisinopril 20 mg tab(s) (ZESTRIL, PRINIVIL) 20 mg ORAL DAILY Radha Mack APRN.ACCELERATOR TECHNICIAN 20 mg at 01/19/22 0848 tamsulosin 0.4 mg cap(s) (FLOMAX) 0.4 mg ORAL AT BEDTIME Radha Mack APRN.ACCELERATOR TECHNICIAN 0.4 mg at 01/19/227 insulin lispro injection (rapid acting) (ADMELOG) SUBCUTANEOUS w MEALS Nusrat Nash APRN.ACCELERATOR TECHNICIAN 15 Units at 01/19/22 1715 pioglitazone 45 mg tab(s) (ACTOS) 45 mg ORAL DAILY Nusrat Nash APRN.ACCELERATOR TECHNICIAN 45 mg at 01/19/22 0848 docusate sodium 100 mg cap(s) (COLACE) 100 mg ORAL BID Nusrat Nash APRN.ACCELERATOR TECHNICIAN 100 mg at 01/19/22 220 polyethylene glycol 3350 17 g packet (MIRALAX, GLYCOLAX) 17 g ORAL DAILY Nusrat Nash APRN.ACCELERATOR TECHNICIAN 17 g at 01/18/22 1222 venlafaxine ER 37.5 mg cap(s) (EFFEXOR XR) 37.5 mg ORAL DAILY WITH BREAKFAST Rafal Carroll PA-C 37.5 mg at 01/19/22 0849 dextrose 40 % 15 g 15 g OR (more content not included)...[facility] 01-19-2022 NoteHNO ID: [id number] Author: Teresa Diego APRN.ACCELERATOR TECHNICIAN Service: Hospital Medicine Author Type: Nurse Practitioner [...] Assessment AND Plan: - Referred by OP applied exercise physiologist Dr Kenneyd for concern of worsening depression and reportedly [...] (HCC) POA: Yes Assessment AND Plan: - Filter Press Operator 1.3 which is his baseline. - Limits nephrotoxins and trend daily labs. Abdominal pain - Resolved, tolerating diet. - CT AP non acute - ADAT, continue bowel regimen. Dispo: Patient medically stable to transfer to unit. Dr Orantes will continue to follow along and f/up UA/ culture. Discussed with Dr Orantes via phone and transfer orders placed. Teresa Diego, MSN, [facility] 01/19/22 3:30 PM For inpatients: I spent 35 minutes in the visit, with more than 50% of the total gwbn-dr-vubf time of the visit in counseling / coordination of care. [facility] [id number] Miscellaneous Notes* Behavorial Health Intake - Yael Huerta, [facility] - 01/19/2022 5:16 PM EDT BEHAVIORAL HEALTH INTAKE NOTE SERVICE DATE: 01/19/2022 SERVICE TIME: 1700 Nature of the crisis: depression leading to medication noncompliance Presenting Problem: José Manuel Ashton is a 61 year old male referred by [facility] for depression. Per Psych consult 01/19/2022 by [...] and care. Patient is agreeable. Per ED derrick worker Roxanne MOORE on 01/17 This repairer typewriter assessed patient via face to face who presents alert and oriented x 4, appears overweight and disheveled, speech is within normal limits appropriate to tone, prosody, melody, phonetic, and syntax, thought process is linear and organized, d ifficulty concentrating at times, and a poor historian,, mood is depressed with flat affect, with impaired judgement and insight into illness. Patient reports that his Fish Drier sent him to the emergency room for [...] too many things going on . This repairer typewriter inquires if patient believes he will get [...] states that he has beenforced to a long term in the past for not caring for himself. This repairer typewriter discussed with patientpotential for a [facility] nurse to come into home to [...] quittin.8 Smokeless tobacco: Never Tobacco comments: Smokes [place] Vaping Use Vaping Use: Never used Substance [...] and before supper^Disp: 120 tablet^Rfl: 1 Insulin [place], Disposable, (COMFORT EZ PEN NEEDLES) 29 gauge [...] Major Depressive Disorder Satisfaction With Relationships: per [facility] 01/17 Pt reports to living with brothers and sisters. Patient states that he sometimes does not get along with his siblings. Pt states he came from a family of 17 siblings, he is number 17 Does Patient Have Minor Children for Whom He/She is Responsible?: No Education Level: Some High School (9th grade per [facility]) Is the Patient a : No Legal History: No Legal History How Legal Issues Were Verified: [facility] [employer] of Courts Website;[facility] [employer] Sexual Offender Website Gender Specific Test: Not [...] Cane Continence: Continent MENTAL HEALTH SERVICES: Agency/Organization: [facility] in [facility] Inpatient Mental Health Treatment History: None [...] Dr. Olivas Admission Status: Full Admit Unit: [address] Bed#: Room 617 Bed 1 Report Given To: Chele ZHANG Report Date: 01/20/22 Report Time: 1346 Admission Type: Voluntary Is Patient Less Than 18 Years of Age or have a Guardian/Healthcare Power of Delivery Manager?: No Disposition Date: 01/20/22 Disposition Time: 135 S[facility] NAME: José Manuel Ashton DATE: January 19, 2022 TIME: 5:16 PM documented in this encounterWadsworth-[facility]10-18-2022 NoteHNO ID: [id number] Author: Jennifer Castillo RN Service: Nursing Author Type: Registered Nurse Type: Nursing Progress Note Filed: 01/18/2022 4:10 PM Note Text: 1600 refuses to use urinal.[facility] [id number] NoteHNO ID: [id number] Author: Rafal Carroll PA-C Service: Psychiatry Author Type: Physician Coin Machine Operator Type: Plan of Care Filed: 01/18/2022 6:05 PM Note Text: PLAN OF CARE José Manuel Ashton is a 61 year old male with history of MDD, BRANDAN, Cannabis Use Disorder, Tobacco Use Disorder (in remission), Alcohol Use Disorder (in full remission?), Obesity, DM2, HTN, BPH, CKD3, Vitamin D Deficiency, Malignant Neoplasm of Rectum, who presented to the ED as recommended by his applied exercise physiologist for a psychiatric evaluation in the context of poor compliance to treatment. 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 Kennedy for psych eval who saw [...] Was prescribed Wellbutrin, but didn't take. Per [facility], his last psych visit was in [...] XR 37.5 mg in (more content not included)...[facility] 01-18-2022 NoteHNO ID: [id number] Author: Nusrat Nash APRN.ACCELERATOR TECHNICIAN Service: Hospital Medicine Author Type: Nurse Practitioner [...] to the ED on request of his Fish Drier, Dr Kennedy, for Psych evaluation (increasing depression). [...] -presented to the ED per request of Fish Drier for Psych evaluation -await Psych evaluation Mixed [...] VTE prophylaxis appropriat (more content not included)... [facility] [id number] History of Past illness Narrative* Problem Noted Date Resolved Date Abdominal discomfort 01/18/2022 01/19/2022 Microscopic hematuria 03/08/2021 01/17/2022 Weakness 05/05/2020 06/15/2020 Decreased mobility and endurance 05/05/2020 06/15/2020 documented as of this encounter (statuses as of 01/20/2022) [facility] History of Past illness Narrative* Problem Noted Date Resolved Date Abdominal discomfort 01/18/2022 01/19/2022 Microscopic hematuria 03/08/2021 01/17/2022 Weakness 05/05/2020 06/15/2020 Decreased mobility and endurance 05/05/2020 06/15/2020 documented as of this encounter (statuses as of 01/28/2022) [facility] of Past illness Narrative* Problem Noted Date Resolved Date Abdominal discomfort 01/18/2022 01/19/2022 Microscopic hematuria 03/08/2021 01/17/2022 Weakness 05/05/2020 06/15/2020 Decreased mobility and endurance 05/05/2020 06/15/2020 documented as of this encounter (statuses as of 02/21/2022) [facility] of Past illness Narrative* Problem Noted Date Resolved Date Abdominal discomfort 01/18/2022 01/19/2022 Microscopic hematuria 03/08/2021 01/17/2022 Weakness 05/05/2020 06/15/2020 Decreased mobility and endurance 05/05/2020 06/15/2020 documented as of this encounter (statuses as of 02/21/2022) [facility] of Past illness Narrative* Problem Noted Date Resolved Date Abdominal discomfort 01/18/2022 01/19/2022 Microscopic hematuria 03/08/2021 01/17/2022 Weakness 05/05/2020 06/15/2020 Decreased mobility and endurance 05/05/2020 06/15/2020 documented as of this encounter (statuses as of 02/21/2022) [facility] of Past illness Narrative* Problem Noted Date Resolved Date Abdominal discomfort 01/18/2022 01/19/2022 Microscopic hematuria 03/08/2021 01/17/2022 Weakness 05/05/2020 06/15/2020 Decreased mobility and endurance 05/05/2020 06/15/2020 documented as of this encounter (statuses as of 02/23/2022) [facility] of Past illness Narrative* Problem Noted Date Resolved Date Abdominal discomfort 01/18/2022 01/19/2022 Microscopic hematuria 03/08/2021 01/17/2022 Weakness 05/05/2020 06/15/2020 Decreased mobility and endurance 05/05/2020 06/15/2020 documented as of this encounter (statuses as of 03/01/2022) [facility] of Past illness Narrative* Problem Noted Date Resolved Date Abdominal discomfort 01/18/2022 01/19/2022 Microscopic hematuria 03/08/2021 01/17/2022 Weakness 05/05/2020 06/15/2020 Decreased mobility and endurance 05/05/2020 06/15/2020 documented as of this encounter (statuses as of 03/01/2022) [facility] of Past illness Narrative* Problem Noted Date Resolved Date Abdominal discomfort 01/18/2022 01/19/2022 Microscopic hematuria 03/08/2021 01/17/2022 Weakness 05/05/2020 06/15/2020 Decreased mobility and endurance 05/05/2020 06/15/2020 documented as of this encounter (statuses as of 03/11/2022) [facility] of Past illness Narrative* Problem Noted Date Resolved Date Abdominal discomfort 01/18/2022 01/19/2022 Microscopic hematuria 03/08/2021 01/17/2022 Weakness 05/05/2020 06/15/2020 Decreased mobility and endurance 05/05/2020 06/15/2020 documented as of this encounter (statuses as of 03/12/2022) [facility] of Past illness Narrative* Problem Noted Date Resolved Date Abdominal discomfort 01/18/2022 01/19/2022 Microscopic hematuria 03/08/2021 01/17/2022 Weakness 05/05/2020 06/15/2020 Decreased mobility and endurance 05/05/2020 06/15/2020 documented as of this encounter (statuses as of 03/17/2022) [facility] of Past illness Narrative* Problem Noted Date Resolved Date Abdominal discomfort 01/18/2022 01/19/2022 Microscopic hematuria 03/08/2021 01/17/2022 Weakness 05/05/2020 06/15/2020 Decreased mobility and endurance 05/05/2020 06/15/2020 documented as of this encounter (statuses as of 03/23/2022) [facility] of Past illness Narrative* Problem Noted Date Resolved Date Abdominal discomfort 01/18/2022 01/19/2022 Microscopic hematuria 03/08/2021 01/17/2022 Weakness 05/05/2020 06/15/2020 Decreased mobility and endurance 05/05/2020 06/15/2020 documented as of this encounter (statuses as of 04/05/2022) [facility] of Past illness Narrative* Problem Noted Date Resolved Date Abdominal discomfort 01/18/2022 01/19/2022 Microscopic hematuria 03/08/2021 01/17/2022 Weakness 05/05/2020 06/15/2020 Decreased mobility and endurance 05/05/2020 06/15/2020 documented as of this encounter (statuses as of 04/07/2022) [facility] of Past illness Narrative* Problem Noted Date Resolved Date Abdominal discomfort 01/18/2022 01/19/2022 Microscopic hematuria 03/08/2021 01/17/2022 Weakness 05/05/2020 06/15/2020 Decreased mobility and endurance 05/05/2020 06/15/2020 documented as of this encounter (statuses as of 04/12/2022) [facility] of Past illness Narrative* Problem Noted Date Resolved Date Abdominal discomfort 01/18/2022 01/19/2022 Microscopic hematuria 03/08/2021 01/17/2022 Weakness 05/05/2020 06/15/2020 Decreased mobility and endurance 05/05/2020 06/15/2020 documented as of this encounter (statuses as of 04/13/2022) [facility] of Past illness Narrative* Problem Noted Date Resolved Date Abdominal discomfort 01/18/2022 01/19/2022 Microscopic hematuria 03/08/2021 01/17/2022 Weakness 05/05/2020 06/15/2020 Decreased mobility and endurance 05/05/2020 06/15/2020 documented as of this encounter (statuses as of 04/21/2022) [facility] of Past illness Narrative* Problem Noted Date Resolved Date Abdominal discomfort 01/18/2022 01/19/2022 Microscopic hematuria 03/08/2021 01/17/2022 Weakness 05/05/2020 06/15/2020 Decreased mobility and endurance 05/05/2020 06/15/2020 documented as of this encounter (statuses as of 04/26/2022) [facility] of Past illness Narrative* Problem Noted Date Resolved Date Abdominal discomfort 01/18/2022 01/19/2022 Microscopic hematuria 03/08/2021 01/17/2022 Weakness 05/05/2020 06/15/2020 Decreased mobility and endurance 05/05/2020 06/15/2020 documented as of this encounter (statuses as of 05/04/2022) [facility] of Past illness Narrative* Problem Noted Date Resolved Date Abdominal discomfort 01/18/2022 01/19/2022 Microscopic hematuria 03/08/2021 01/17/2022 Weakness 05/05/2020 06/15/2020 Decreased mobility and endurance 05/05/2020 06/15/2020 documented as of this encounter (statuses as of 05/06/2022) [facility] of Past illness Narrative* Problem Noted Date Resolved Date Abdominal discomfort 01/18/2022 01/19/2022 Microscopic hematuria 03/08/2021 01/17/2022 Weakness 05/05/2020 06/15/2020 Decreased mobility and endurance 05/05/2020 06/15/2020 documented as of this encounter (statuses as of 05/11/2022) [facility] of Past illness Narrative* Problem Noted Date Resolved Date Abdominal discomfort 01/18/2022 01/19/2022 Microscopic hematuria 03/08/2021 01/17/2022 Weakness 05/05/2020 06/15/2020 Decreased mobility and endurance 05/05/2020 06/15/2020 documented as of this encounter (statuses as of 05/19/2022) [facility] of Past illness Narrative* Problem Noted Date Resolved Date Abdominal discomfort 01/18/2022 01/19/2022 Microscopic hematuria 03/08/2021 01/17/2022 Weakness 05/05/2020 06/15/2020 Decreased mobility and endurance 05/05/2020 06/15/2020 documented as of this encounter (statuses as of 05/19/2022) [facility] of Past illness Narrative* Problem Noted Date Resolved Date Abdominal discomfort 01/18/2022 01/19/2022 Microscopic hematuria 03/08/2021 01/17/2022 Weakness 05/05/2020 06/15/2020 Decreased mobility and endurance 05/05/2020 06/15/2020 documented as of this encounter (statuses as of 06/06/2022) [facility] of Past illness Narrative* Problem Noted Date Resolved Date Abdominal discomfort 01/18/2022 01/19/2022 Microscopic hematuria 03/08/2021 01/17/2022 Weakness 05/05/2020 06/15/2020 Decreased mobility and endurance 05/05/2020 06/15/2020 documented as of this encounter (statuses as of 06/22/2022) [facility] of Past illness Narrative* Problem Noted Date Resolved Date Abdominal discomfort 01/18/2022 01/19/2022 Microscopic hematuria 03/08/2021 01/17/2022 Weakness 05/05/2020 06/15/2020 Decreased mobility and endurance 05/05/2020 06/15/2020 documented as of this encounter (statuses as of 06/29/2022) [facility] of Past illness Narrative* Problem Noted Date Resolved Date Abdominal discomfort 01/18/2022 01/19/2022 Microscopic hematuria 03/08/2021 01/17/2022 Weakness 05/05/2020 06/15/2020 Decreased mobility and endurance 05/05/2020 06/15/2020 documented as of this encounter (statuses as of 06/30/2022) [facility] of Past illness Narrative* Problem Noted Date Resolved Date Abdominal discomfort 01/18/2022 01/19/2022 Microscopic hematuria 03/08/2021 01/17/2022 Weakness 05/05/2020 06/15/2020 Decreased mobility and endurance 05/05/2020 06/15/2020 documented as of this encounter (statuses as of 07/01/2022) [facility] of Past illness Narrative* Problem Noted Date Resolved Date Abdominal discomfort 01/18/2022 01/19/2022 Microscopic hematuria 03/08/2021 01/17/2022 Weakness 05/05/2020 06/15/2020 Decreased mobility and endurance 05/05/2020 06/15/2020 documented as of this encounter (statuses as of 07/15/2022) [facility] of Past illness Narrative* Problem Noted Date Resolved Date Abdominal discomfort 01/18/2022 01/19/2022 Microscopic hematuria 03/08/2021 01/17/2022 Weakness 05/05/2020 06/15/2020 Decreased mobility and endurance 05/05/2020 06/15/2020 documented as of this encounter (statuses as of 07/27/2022) [facility] illness Narrative* Problem Noted Date Resolved Date Abdominal discomfort 01/18/2022 01/19/2022 Microscopic hematuria 03/08/2021 01/17/2022 Weakness 05/05/2020 06/15/2020 Decreased mobility and endurance 05/05/2020 06/15/2020 documented as of this encounter (statuses as of 07/28/2022) [facility] of Past illness Narrative* Problem Noted Date Resolved Date Abdominal discomfort 01/18/2022 01/19/2022 Microscopic hematuria 03/08/2021 01/17/2022 Weakness 05/05/2020 06/15/2020 Decreased mobility and endurance 05/05/2020 06/15/2020 documented as of this encounter (statuses as of 08/09/2022) [facility] of Past illness Narrative* Problem Noted Date Resolved Date Abdominal discomfort 01/18/2022 01/19/2022 Microscopic hematuria 03/08/2021 01/17/2022 Weakness 05/05/2020 06/15/2020 Decreased mobility and endurance 05/05/2020 06/15/2020 documented as of this encounter (statuses as of 08/13/2022) [facility] of [facility] illness Narrative* Problem Noted Date Resolved Date Abdominal discomfort 01/18/2022 01/19/2022 Microscopic hematuria 03/08/2021 01/17/2022 Weakness 05/05/2020 06/15/2020 Decreased mobility and endurance 05/05/2020 06/15/2020 documented as of this encounter (statuses as of 08/15/2022) [facility] NoteHNO ID: [id number] Author: Kylah Orantes MD Service: ? Author Type: Physician Type: Progress Notes Filed: 01/18/2022 11:14 PM Note Text: [facility] Progress Note JOSÉ MANUEL ASHTON : 1960 AGE: 61 SEX: M CSN: [id number] [facility] LOCATION: [facility] ATTENDING PHYSICIAN: Kylah Orantes M.D. DATE [...] quittin.8 Smokeless tobacco: Never Tobacco comments: Smokes [place] Vaping Use Vaping Use: Never used Substance [...] injection 0.5 mg INTRAVENOUS PRN Radha Mack APRN.ACCELERATOR TECHNICIAN NaCl 0.9% iv flush bag 20 mL INTRAVENOUS PRN Radha Mack APRN.ACCELERATOR TECHNICIAN sodium chloride 0.9 % (flush) 3-5 mL (BD POSIFLUSH) 3-5 mL INTRAVENOUS q 12 H Radha Mack APRN.ACCELERATOR TECHNICIAN 5 mL at 01/18/222014 aluminum-magnesium hydroxide-simethicone 200-200-20 mg/5 mL 30 mL (MAALOX,MYLANTA,MAG-AL PLUS) 30 mL ORAL DAILY PRN Radha Mack APRN.ACCELERATOR TECHNICIAN acetaminophen 650 mg tab(s) (TYLENOL) 650 mg ORAL q 6 H PRN Radha Mack APRN.ACCELERATOR TECHNICIAN 650 mg at 01/18/22 0818 insulin lispro injection (rapid acting) (ADMELOG) SUBCUTANEOUS AT BEDTIME Radha Mack APRN.ACCELERATOR TECHNICIAN 2 Units at 01/18/22 0123 hydrALAZINE 10 mg injection (APRESOLINE) 10 mg INTRAVENOUS q 6 H PRN Radha Mack APRN.ACCELERATOR TECHNICIAN lisinopril 20 mg tab(s) (ZESTRIL, PRINIVIL) 20 mg ORAL DAILY Radha Mack APRN.ACCELERATOR TECHNICIAN 20 mg at 01/18/22 0817 tamsulosin 0.4 mg cap(s) (FLOMAX) 0.4 mg ORAL AT BEDTIME Radha Mack HEALTH PLAN SPECIALIST.ACCELERATOR TECHNICIAN 0.4 mg at 01/18/222014 enteric contrast (radiology procedure) ORAL DIRECTED PRN Kylah Orantes MD insulin lispro injection (rapid acting) (ADMELOG) SUBCUTANEOUS w MEALS Nusrat Nash APRN.ACCELERATOR TECHNICIAN 9 Units at 01/18/22 1729 pioglitazone 45 mg tab(s) (ACTOS) 45 mg ORAL DAILY Nusrat Nash APRN.ACCELERATOR TECHNICIAN 45 mg at 01/18/22 1218 insulin glargine 26 Units pen (long acting) (LANTUS SOLOSTAR, BASAGLAR KWIKPEN) 26 Units SUBCUTANEOUS AT BEDTIME Nusrat Nash APRN.ACCELERATOR TECHNICIAN 26 Units at 01/18/222015 docusate sodium 100 mg cap(s) (COLACE) 100 mg ORAL BID Nusrat Nash APRN.ACCELERATOR TECHNICIAN 100 mg at 01/18/222014 polyethylene glycol 3350 17 g packet (MIRALAX, GLYCOLAX) 17 g ORAL DAILY Nusrat Nash APRN.ACCELERATOR TECHNICIAN 17 g at 01/18/22 1222 [START ON 01/19/2022] venlafaxine ER 3 (more content not included)...[id number] History of Present illness Narrative* Jen Bergman RN - 01/18/2022 9:05 AM EDT PRIMARY CARE COORDINATION QUICK NOTE Patient identified by name and date . Pt admitted to [facility] yesterday. SBAR attached. Jen Bergman RN * Jen Bergman RN - 01/18/2022 8:57 AM EDT PRIMARY CARE COORDINATION SBAR PCC HAND IN José Manuel Ashton, 61 year old male SITUATION: Admitted for Psych Eval Hyperglycemic BACKGROUND: Living arrangements: Lives with Family - Brother and Sister Contact Name and phone number: Meche Sanders (Sister) - Health Pump Tender: His siblings help Self Care/ADLs: Independent Mobility: Independent Barriers to care/Adherence: Financial Transportation Other - Pt states that he just doesn't want to take his meds or check his blood sugars RECOMMENDATIONS: Pt may need SNF Name of [employer] Sales Manager: Jen Bergman RN [facility] or [facility] office: [facility] (Dr. Vega, PCP) Phone number: [phone] documented in this encounterWadsworth-Rittman Hospital10-18-2022 NoteHNO ID: [id number] Author: Radha Mack APRN.LEX Service: Critical Care Author Type: Nurse Practitioner Type: Progress Notes Filed: 01/18/2022 12:35 AM Note Text: Packager Coverage Note Patient Name: José Manuel Ashton This is a 61 year old male admitted for hyperglycemia without anion gap and psych eval. He was directed to come to the ED by his applied exercise physiologist Dr. Kennedy for concern of patient's decrease willingness to take his medications and feelings of depression. He is admitted to the [facility] for glycemic control. Plan discussed with [...] SpO2 98% BMI 36.40 kg/m? Radha Mack APRN.ACCELERATOR TECHNICIAN January 18, 2022 12:32 [facility]10-17-2022 NoteCOVID [...] by PCRLutheran HospitalComment on above:Performed By: #### [id number] ####[facility] LABORATORYCLIA [id number] [place] [address] [place] 01-17-2022 Miscellaneous Notes* Behavorial Health Intake - Roxanne Rowland, OSCAR - 01/17/2022 8:50 PM EDT BEHAVIORAL HEALTH INTAKE NOTE SERVICE DATE: 01/17/2022 SERVICE TIME: 8:38 pm Nature of the crisis: Psychiatric evaluation for depression from [facility] outpatient appointment Presenting Problem: José Manuel Ashton [...] and CKD stage 3a, brought in to [facility] from Outpatient Office by self for [...] get helped. He has a psychiatrist at [facility] [place]. This repairer typewriter assessed patient via face to face who presents alert and oriented x 4, appears overweight and disheveled, speech is within normal limits appropriate to tone, prosody, melody, phonetic, and syntax, thought process is linear and organized, difficulty concentrating at times, and a poor historian,, mood is depressed with flat affect, with impaired judgement and insight into illness. Patient reports that his [facility] sent him to the emergency room for [...] too many things going on . This repairer typewriter inquires if patient believes he will get [...] states that he has beenforced to a long term in the past for not caring for himself. This repairer typewriter discussed with patientpotential for a [facility] nurse to come into home to assist with his medication management to ensure he is caring for self properly and taking medications. Patient has been calm and cooperative in the ED with no restraints or medications administered. This repairer typewriter spoke to ED physician, Dr. Rascon, who [...] quittin.8 Smokeless tobacco: Never Tobacco comments: Smokes [place] Vaping Use Vaping Use: Never used Substance [...] and before supper^Disp: 120 tablet^Rfl: 1 Insulin Bulls [place], Disposable, (COMFORT EZ PEN NEEDLES) 29 gauge [...] Employment Status: Disabled Is the Patient a [place]: No Legal History: No Legal History How Legal Issues Were Verified: [facility] Cheese Cook of Courts Website;[facility] Sexual Offender Website Gender Specific Test: Not Applicable Sex at Time of : Male Patient Identified Gender: Male Preferred Pronoun: He/Him/His Sexual Orientation: Heterosexual Cultural/Worship Concerns Cultural Issues or Concerns That Might Affect Treatment: NOne Worship/Spiritual Issues or Concerns That Might Affect Treatment: None FAMILY HISTORY: FAMILY HISTORY Problem Relation Age of Onset other (Heart stroke) Mother other (Glaucoma lung cancer) Father Glaucoma Sister Glaucoma Brother OBSERVATIONS Level of Consciousness Alert: Yes Orientation: Person;Place;Time;Situation Physical Appearance Appears: Disheveled;Overweight Speech Rate: Appropriate Volume: Appropriate Quality: Appropriate to Topic Quantity: Appropriate Thought Processes Thought: Difficulty Concentrating;Poor Historian/Radiological Health Specialist;Linear and Organized Thought Content Delusions: None Observed [...] Age or have a Guardian/Healthcare Power of Delivery Manager?: No Disposition Date: 01/17/22 Disposition Time: 2319 SIGNATURE: OSCAR Pandya PATIENT NAME: José Manuel Ashton DATE: January 17, 2022 TIME: 8:50 PM documented in this encounterWadsworth-Rittman Hospital10-17-2022 NoteHNO ID: [id number] Author: Billy Cody MD Service: ? Author Type: Physician Type: Progress Notes Filed: 01/17/2022 3:36 PM Note Text: [facility] NEPHROLOGY CONSULT NOTE Patient Name: José Manuel [...] get helped. He has a psychiatrist at [facility] [place]. PAST MEDICAL HISTORY: PAST MEDICAL HISTORY [...] quittin.8 Smokeless tobacco: Never Tobacco comments: Smokes [place] Vaping Use Vaping Use: Never used Substance Use Topics Alcohol use: Not Currently Drug use: Yes Types: Marijuana Comment: daily Single. No children. He lives with his brother and sister. (He moved back from [place]). 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 He quit tobacco in 2019. He [...] tablets before breakfast and before supper Insulin Bulls [place], Disposable, (COMFORT EZ PEN NEEDLES) 29 gauge x 1/2 1 Each once daily. insulin glargine (LANTUS SOLOSTAR, BASAGLAR KWIKPEN) 100 unit/mL (3 mL) Inject 26 Units subcutaneously daily at bedtime. buPROPion SR (WELLBUTRIN SR) 100 mg 12 hr tablet Take 1 tablet by mouth once daily. (more content not included)...[facility] [id number] Instructions* Patient Instructions* Billy Cody MD - 01/17/2022 3:14 PM EDT Advised to go to the ER for evaluation of depression. documented in this encounterWadsworth-Rittman Hospital10-17-2022 History of Present illness Narrative* Billy Cody MD - 01/17/2022 3:00 PM EDT Images from the original note were not included. [facility] NEPHROLOGY CONSULT NOTE Patient Name: José Manuel [...] get helped. He has a psychiatrist at [facility] [place]. PAST MEDICAL HISTORY: PAST MEDICAL HISTORY [...] quittin.8 Smokeless tobacco: Never Tobacco comments: Smokes [place] Vaping Use Vaping Use: Never used Substance Use Topics Alcohol use: Not Currently Drug use: Yes Types: Marijuana Comment: daily Single. No children. He lives with his brother and sister. (He moved back from [place]). 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 He quit tobacco in 2019. He [...] tablets before breakfast and before supper Insulin [place], Disposable, (COMFORT EZ PEN NEEDLES) 29 gauge [...] 04/12/2021 5.0 5.0 - 8.0 Final Specific Orcas, Ur Date Value Ref Range Status 04/12/2021 [...] CC: Belgica Vega DO documented in this encounterWadsworth-Rittman Hospital10-14-2022 Miscellaneous Notes* Telephone Encounter - Simeon Vásquez - 01/14/2022 2:03 PM EDT Patient has cancelled surgery again due to ongoing kidney problems. Case has been cancelled out by Girma Vásquez and all scheduled PO appts. too documented in this encounterWadsworth-Rittman Hospital10-14-2022 Miscellaneous Notes* Telephone Encounter - Maria [...] later date for rescheduling. documented in this encounterWadsworth-Rittman Hospital10-07-2022 History of Present illness Narrative* Jen [...] Weight mgmt/activity No change (09/23/2020) Concerns: N/A Offal Roller plan for next outreach: Will follow up in about 3wks. Signature Jen Bergman RN January 07, 2022 documented in this encounterWadsworth-Rittman Hospital10-03-2022 History of Present illness Narrative* Belgica Vega, DO - 01/03/2022 3:53 PM EDT Images from the original note were not included. Belgica Vega [address] [facility] [address] [place] [address] Visit Date: January 03, 2022 Mr.Jim Najma Ashton Date of : 1960 MRN/E #: [id number] History of Present Illness José Manuel Ashton is a 61 year old male. Patient presents to the clinic today for follow-up hypertension, diabetes HPI Per appointment note patient has been stressed and depressed. Has not been taking his medication regularly Patient has history of hypertension and lower extremity edema.. BP today 141/85. BP during last office visit [id number]. during November 2021. 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 Pt admits [...] quittin.7 Smokeless tobacco: Never Tobacco comments: Smokes [place] Vaping Use Vaping Use: Never used Substance [...] breakfast and before supper 120tablet 1 Insulin [place], Disposable, (COMFORT EZ PEN NEEDLES) 29 gauge [...] (A) 74 - 99 mg/dL Final Comment: Location:[facility] [employer] [facility], [address] [place] [address] The Accu-Chek Inform II glucose meter has [...] (A) 4.2 - 5.6 % Final Comment: Location:[facility] [employer] [place], [address] [place] [address], [facility] Point of care (POC) Hemoglobin A1c [...] specific diabetes management situations: The POC device school curriculum developer provides a normal range of 4.2% to 6.5% for the HGBA1C POC test. However, the [place] Diabetes Association guidelines indicate that patients with [...] to the nearest ED. documented in this encounterWadsworth-Rittman Hospital09-27-2022 History of Present illness Narrative* Jen [...] Weight mgmt/activity No change (09/23/2020) Concerns: N/A Offal Roller plan for next outreach: Will follow up in 1-2 wks. Signature Jen Bergman RN December 28, 2021 documented in this encounterWadsworth-Rittman Hospital09-19-2022 NoteHNO ID: [id number] Author: Billy Cody MD Service: ? Author [...] AND symptoms (ex: edema, SOB): azotemia [facility] Billy Leon MD Staff Nephrology and Hypertension [facility] Pager# [phone]. Vincent [id number] History of Present illness Narrative* Billy Cody [...] & symptoms (ex: edema, SOB): azotemia [facility] Billy Leon MD Staff Nephrology and Hypertension [facility] Pager# [phone] documented in this encounterWadsworth-Rittman Hospital09-02-2022 History of Present illness Narrative* Jen [...] Weight mgmt/activity No change (09/23/2020) Concerns: N/A Offal Roller plan for next outreach: Will follow up in about 1 month. Signature Jen Bergman RN December 03, 2021 documented in this encounterWadsworth-Rittman Hospital08-30-2022 Miscellaneous Notes* Telephone Encounter - Maria [...] in scheduling cataract surgery. documented in this encounterWadsworth-Rittman Hospital08-22-2022 Miscellaneous Notes* Telephone Encounter - Yarely Teixeira Pss - 11/22/2021 8:50 AM EDT Faxed letter to Belgica Vega DO [address] [facility] [address] [address] documented in this encounterWadsworth-Rittman Hospital08-09-2022 Miscellaneous Notes* Telephone Encounter - Maria [...] at a later date. documented in this encounterWadsworth-Rittman Hospital08-05-2022 History of Present illness Narrative* Belgica L Je, DO - 11/05/2021 4:10 PM EDT Images from the original note were not included. Belgica Brandon Je [address] [facility] [address] [place] [address] Visit Date: November 05, 2021 Mr.Jim Najma Ashton Date of : 1960 MRN/E #: [id number] History of Present Illness José Manuel Ashton [...] Pt indicates having troubles scheduling, told by clerical receptionist not sure what kind of kidney [...] Smokeless tobacco: Never Used Tobacco comment: Smokes [place] Vaping Use Vaping Use: Never used Substance [...] breakfast and before supper 120tablet 1 Insulin [place], Disposable, (COMFORT EZ PEN NEEDLES) 29 gauge [...] (A) 74 - 99 mg/dL Final Comment: Location:[facility] [employer] [place], [address] [place] [address], [facility] The Accu-Chek Inform II glucose meter [...] 4.2 - 5.6 % Final Comment: Location:[facility], [address] [place] [address], [facility] Point of care (POC) Hemoglobin A1c [...] specific diabetes management situations: The POC device school curriculum developer provides a normal range of 4.2% to 6.5% for the HGBA1C POC test. However, the [place] Diabetes Association guidelines indicate that patients with [...] to the nearest ED. documented in this encounterWadsworth-Rittman Hospital08-05-2022 History of Present illness Narrative* Renetta Meaz MD - 11/05/2021 2:13 PM EDT (E11.2155) Mild nonproliferative diabetic retinopathy of both eyes [...] patient was offered a surgery/procedure at a [facility]. The surgeon/proceduralist and patient have [...] NO Previous refractive surgery: NO Preferred office: [facility] phenylephrine and vigamox Special notes sugars [...] management of this patient's care with the Resident/Fellow/Compliance Mgr, if applicable. I also have reviewed and agree with the assessment and plan as stated above and agree with all of its relevant components. Renetta Meza MD November 05, 2021 2:16 PM documented in this encounterWadsworth-Rittman Hospital08-01-2022 History of Present illness Narrative* Jen [...] Weight mgmt/activity No change (09/23/2020) Concerns: N/A Offal Roller plan for next outreach: Will follow up in about 3wks. Signature Jen Bergman RN November 01, 2021 documented in this encounterWadsworth-Rittman Hospital07-27-2022 History of Present illness Narrative* Noé [...] (no units) Date Value 04/12/2021 3+ Specific Orcas, Ur (no units) Date Value 04/12/2021 1.025 [...] tablets before breakfast and before supper Insulin [place], Disposable, (COMFORT EZ PEN NEEDLES) 29 gauge [...] Smokeless tobacco: Never Used Tobacco comment: Smokes [place] Vaping Use Vaping Use: Never used Substance [...] neg 02/17/2020 PSA 0.75, no Fhx of Court Monitor Assessment and Plan: Microhematuria- prior w/u neg. [...] Level: 4 - Moderate documented in this encounterWadsworth-Rittman Hospital07-26-2022 Miscellaneous Notes* Telephone Encounter - Nancy Howard - 10/26/2021 11:55 AM EDTSummary: Referral Follow up Images from the original note were not included. called pt mailbox full mailed letter documented in this encounterWadsworth-Rittman Hospital07-14-2022 Miscellaneous Notes* Telephone Encounter - Alissa Bryson - 10/14/2021 3:56 PM EDT Called pt to vania colonoscopy with Gabby, mailbox is full, unable to lvm. Alissa Bryson documented in this encounterWadsworth-Rittman Hospital07-05-2022 Miscellaneous Notes* Telephone Encounter - Nancy Howard - 10/05/2021 4:12 PM EDTSummary: Referral Referral to Nephrology Confirmation number: [id number] documented in this encounterWadsworth-Rittman Hospital07-05-2022 History of Present illness Narrative* Belgica Vega, - 10/05/2021 3:13 PM EDT Images from the original note were not included. Belgica Vega [address] [facility] [address] [place] [address] Visit Date: October 05, 2021 Mr.Jim Najma Ashton Date of : 1960 MRN/E #: [id number] History of Present Illness José Manuel Ashton [...] July 2021. Patient does have history of MEKIH. It was recommended patient schedule Pap titration [...] Smokeless tobacco: Never Used Tobacco comment: Smokes [place] Vaping Use Vaping Use: Never used Substance [...] breakfast and before supper 120tablet 1 Insulin [place], Disposable, (COMFORT EZ PEN NEEDLES) 29 gauge [...] (A) 74 - 99 mg/dL Final The [place] Diabetes Association (ADA) provides guidance for cutoff [...] Standards of Medical Care in Diabetes 2016, [place] Diabetes Association. Diabetes Care. 2016.39(Suppl 1). BUN [...] Desk Reference: National Heart, Lung, and Blood [place]. National Institutes of Health. 2001: NIH Publication [...] to the nearest ED. documented in this encounterWadsworth-Rittman Hospital06-20-2022 Miscellaneous Notes* Telephone Encounter - Nancy Howard - 09/20/2021 2:16 PM EDT Images from the original note were not included. Referral to Ophthalmology Confirmation number: [id number] documented in this encounterWadsworth-Rittman Hospital06-20-2022 History of Present illness Narrative* Belgica Vega DO - 09/20/2021 1:23 PM EDT Transitional Care Management TCM Eligibility Documentation The following information was gathered during the initial Patient Outreach Encounter. No flowsheet data found. Summary Discharged from: [facility] Admit Date: 09/06/2021 Admitted for: boil on [...] 20, 2021 1:23 PM documented in this encounterWadsworth-Rittman Hospital06-17-2022 History of Present illness Narrative* Jen [...] Weight mgmt/activity No change (09/23/2020) Concerns: N/A Offal Roller plan for next 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 Signature Jen Bergman RN September 17, 2021 documented in this encounterWadsworth-Rittman Hospital06-08-2022 History of Present illness Narrative* Jen Bergman RN - 09/08/2021 2:32 PM EDT STABLE MANAGER EMERGENCY DEPARTMENT FOLLOW UP INITIAL CONTACT Initial contact with patient post discharge, spoke to pt. Patient identified by name and date : YES SUMMARY: -Patient discharged from [facility] ED on 09/07/21. -Follow up appointment on [...] BLOOD (POC) 0216 Discharged documented in this encounterWadsworth-Rittman Hospital06-06-2022 History of Present illness Narrative* Jen [...] Weight mgmt/activity No change (09/23/2020) Concerns: N/A Offal Roller plan for next outreach: Will follow up in about 3wks. Signature Jen Bergman RN September 06, 2021 documented in this encounterWadsworth-Rittman Hospital05-27-2022 History of Present illness Narrative* Janie Pickett, HEALTH PLAN SPECIALIST.ACCELERATOR TECHNICIAN - 08/27/2021 8:42 AM EDT Subjective Important [...] (38-113), AST and ALT ok Moved from [facility] at some point. Was taking actos plus Metformin. Eventually Primary Care Provider Added basal insulin. 10/2020: first time office visit with Janie Pickett APRN.LEX for diabetes management. [facility] [employer] [facility] prior to today's office visit. Any changes made at our last diabetes management visit were abstracted accordingly (if applicable). Today's Office Visit: Orals: Actos 45 mg daily, Metformin ER 500 mg 2 tabs at breakfast and dinner, Basal insulin (dosed in units) Supper dose: [id number] Other: trulicity 1.5 mg, recently titrated from [...] Smokeless tobacco: Never Used Tobacco comment: Smokes [place] Vaping Use Vaping Use: Never used Substance [...] tablets before breakfast and before supper Insulin [place], Disposable, (COMFORT EZ PEN NEEDLES) 29 gauge [...] this visit. Physical Exam documented in this encounterWadsworth-Rittman Hospital05-13-2022 Miscellaneous Notes* Telephone Encounter - Fermin [...] 12, 2021 2:42 PM documented in this encounterWadsworth-Rittman Hospital05-11-2022 History of Present illness Narrative* Belgica Vega, DO - 08/11/2021 4:25 PM EDT Images from the original note were not included. Belgica Vega [address] [place] [address] Visit Date: August 11, 2021 Mr.Jim Najma Ashton Date of : 1960 MRN/E #: [id number] History of Present Illness José Manuel Ashton [...] Smokeless tobacco: Never Used Tobacco comment: Smokes [place] Vaping Use Vaping Use: Never used Substance [...] breakfast and before supper 120tablet 1 Insulin [place], Disposable, (COMFORT EZ PEN NEEDLES) 29 gauge [...] 07/05/2021 1.97 1.00 - 4.00 k/uL Final [place]% 07/05/2021 7.0 % Final Abs [place] 07/05/2021 0.57 <0.87 k/uL Final [place]% 07/05/2021 [...] (A) 74 - 99 mg/dL Final The [place] Diabetes Association (ADA) provides guidance for cutoff [...] Standards of Medical Care in Diabetes 2016, [place] Diabetes Association. Diabetes Care. 2016.39(Suppl 1). BUN [...] Desk Reference: National Heart, Lung, and Blood [place]. National Institutes of Health. 2001: NIH Publication [...] 11.6 (A) 4.3 - 5.6 % Final [place] Diabetes Association guidelines indicate that patients with HgbA1c in the range 5.7-6.4% are at increased risk for development of diabetes, and intervention by lifestyle modification may be beneficial. HgbA1c greater or equal to 6.5% is considered diagnostic of diabetes. Estimated Average Glucose 07/05/2021 286 mg/dL Final eAG: (Estimated average glucose) is a calculated value from HgbA1c and is veterans service representative of the average blood glucose [...] units of vitamin D daily,Which is available [id number] 7. Mixed hyperlipidemia - ICD9: 272.2, ICD10: [...] to the nearest ED. documented in this encounterWadsworth-Rittman Hospital05-09-2022 History of Present illness Narrative* SWETHA Black [...] 2021 TIME: 4:14 PM documented in this encounterWadsworth-Rittman Hospital05-05-2022 History of Present illness Narrative* Jen [...] Weight mgmt/activity No change (09/23/2020) Concerns: N/A Offal Roller plan for next outreach: Will follow up in about 3wks. Signature Jen Bergman RN August 05, 2021 documented in this encounterWadsworth-Rittman Hospital04-25-2022 Miscellaneous Notes* Telephone Encounter - TAMMY [...] Thanks. Jen Bergman RN documented in this encounterWadsworth-Rittman Hospital04-21-2022 History of Present illness Narrative* Jen [...] Weight mgmt/activity No change (09/23/2020) Concerns: N/A Offal Roller plan for next 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 Signature Jen Bergman RN July 22, 2021 documented in this encounterWadsworth-Rittman Hospital04-05-2022 Miscellaneous Notes* Telephone Encounter - Belgica Vega DO - 07/06/2021 6:30 PM EDT Please notify patient received the labs, blood sugar was 397. Encourage patient to take Lantus nightly. Recommend patient follow-up with endocrinology Recommend if patient feels unwell that he call 911. Can discuss results at appointment Thank you, Belgica Vega D.O. documented in this encounterWadsworth-Rittman Hospital03-31-2022 History of Present illness Narrative* Janie Pickett, HEALTH PLAN SPECIALIST.ACCELERATOR TECHNICIAN - 07/01/2021 8:41 AM EDT Subjective Important [...] AST ALT Alkaline Phosphatase ok Moved from [facility] at some point. Was taking actos plus Metformin. Eventually Primary Care Provider Added basal insulin. 10/2020: first time office visit with Janie Pickett APRN.LEX for diabetes management. Previous diabetes related labs from [employer] and [employer] [facility] reviewed prior to today's office visit. [...] Smokeless tobacco: Never Used Tobacco comment: Smokes [place] Vaping Use Vaping Use: Never used Substance [...] 1 tablet by mouth once daily. Insulin Bulls [place], Disposable, (COMFORT EZ PEN NEEDLES) 29 gauge x 1/2 1 Each once daily. alcohol swabs (ALCOHOL PREP PADS) Apply 1 application to affected area as directed. Objective There were no vitals taken for this visit. Physical Exam documented in this encounterWadsworth-Rittman Hospital12-06-2021 History of Past illness Narrative* Problem Noted Date Resolved Date Microscopic hematuria 03/08/2021 01/17/2022 Weakness 05/05/2020 06/15/2020 Decreased mobility and endurance 05/05/2020 06/15/2020 documented as of this encounter (statuses as of 01/17/2022) [facility]12-06-2021 History of Past illness Narrative* Problem Noted Date Resolved Date Microscopic hematuria 03/08/2021 01/17/2022 Weakness 05/05/2020 06/15/2020 Decreased mobility and endurance 05/05/2020 06/15/2020 documented as of this encounter (statuses as of 01/18/2022) [facility]12-[facility]-2021 History of Past illness Narrative* Problem Noted Date Resolved Date Microscopic hematuria 03/08/2021 01/17/2022 Weakness 05/05/2020 06/15/2020 Decreased mobility and endurance 05/05/2020 06/15/2020 documented as of this encounter (statuses as of 01/18/2022) [facility]02-02-2021 History of Past illness Narrative* Problem Noted Date Resolved Date Weakness 05/05/2020 06/15/2020 Decreased mobility and endurance 05/05/2020 06/15/2020 documented as of this encounter (statuses as of 07/01/2021) [facility]2021 History of Past illness Narrative* Problem Noted Date Resolved Date Weakness 05/05/2020 06/15/2020 Decreased mobility and endurance 05/05/2020 06/15/2020 documented as of this encounter (statuses as of 07/06/2021) [facility]2021 History of Past illness Narrative* Problem Noted Date Resolved Date Weakness 05/05/2020 06/15/2020 Decreased mobility and endurance 05/05/2020 06/15/2020 documented as of this encounter (statuses as of 07/22/2021) [facility] History of Past illness Narrative* Problem Noted Date Resolved Date Weakness 05/05/2020 06/15/2020 Decreased mobility and endurance 05/05/2020 06/15/2020 documented as of this encounter (statuses as of 07/26/2021) [facility] History of Past illness Narrative* Problem Noted Date Resolved Date Weakness 05/05/2020 06/15/2020 Decreased mobility and endurance 05/05/2020 06/15/2020 documented as of this encounter (statuses as of 08/05/2021) [facility] History of Past illness Narrative* Problem Noted Date Resolved Date Weakness 05/05/2020 06/15/2020 Decreased mobility and endurance 05/05/2020 06/15/2020 documented as of this encounter (statuses as of 08/10/2021) [facility] History of Past illness Narrative* Problem Noted Date Resolved Date Weakness 05/05/2020 06/15/2020 Decreased mobility and endurance 05/05/2020 06/15/2020 documented as of this encounter (statuses as of 08/11/2021) [facility] History of Past illness Narrative* Problem Noted Date Resolved Date Weakness 05/05/2020 06/15/2020 Decreased mobility and endurance 05/05/2020 06/15/2020 documented as of this encounter (statuses as of 08/13/2021) [facility] History of Past illness Narrative* Problem Noted Date Resolved Date Weakness 05/05/2020 06/15/2020 Decreased mobility and endurance 05/05/2020 06/15/2020 documented as of this encounter (statuses as of 08/27/2021) [facility] History of Past illness Narrative* Problem Noted Date Resolved Date Weakness 05/05/2020 06/15/2020 Decreased mobility and endurance 05/05/2020 06/15/2020 documented as of this encounter (statuses as of 09/06/2021) [facility] History of Past illness Narrative* Problem Noted Date Resolved Date Weakness 05/05/2020 06/15/2020 Decreased mobility and endurance 05/05/2020 06/15/2020 documented as of this encounter (statuses as of 09/08/2021) [facility] History of Past illness Narrative* Problem Noted Date Resolved Date Weakness 05/05/2020 06/15/2020 Decreased mobility and endurance 05/05/2020 06/15/2020 documented as of this encounter (statuses as of 09/17/2021) [facility] History of Past illness Narrative* Problem Noted Date Resolved Date Weakness 05/05/2020 06/15/2020 Decreased mobility and endurance 05/05/2020 06/15/2020 documented as of this encounter (statuses as of 09/20/2021) [facility] History of Past illness Narrative* Problem Noted Date Resolved Date Weakness 05/05/2020 06/15/2020 Decreased mobility and endurance 05/05/2020 06/15/2020 documented as of this encounter (statuses as of 09/20/2021) [facility] History of Past illness Narrative* Problem Noted Date Resolved Date Weakness 05/05/2020 06/15/2020 Decreased mobility and endurance 05/05/2020 06/15/2020 documented as of this encounter (statuses as of 10/05/2021) [facility] History of Past illness Narrative* Problem Noted Date Resolved Date Weakness 05/05/2020 06/15/2020 Decreased mobility and endurance 05/05/2020 06/15/2020 documented as of this encounter (statuses as of 10/05/2021) [facility] History of Past illness Narrative* Problem Noted Date Resolved Date Weakness 05/05/2020 06/15/2020 Decreased mobility and endurance 05/05/2020 06/15/2020 documented as of this encounter (statuses as of 10/14/2021) [facility] History of Past illness Narrative* Problem Noted Date Resolved Date Weakness 05/05/2020 06/15/2020 Decreased mobility and endurance 05/05/2020 06/15/2020 documented as of this encounter (statuses as of 10/26/2021) [facility] History of Past illness Narrative* Problem Noted Date Resolved Date Weakness 05/05/2020 06/15/2020 Decreased mobility and endurance 05/05/2020 06/15/2020 documented as of this encounter (statuses as of 10/27/2021) [address]02-2021 History of Past illness Narrative* Problem Noted Date Resolved Date Weakness 05/05/2020 06/15/2020 Decreased mobility and endurance 05/05/2020 06/15/2020 documented as of this encounter (statuses as of 11/01/2021) [facility] History of Past illness Narrative* Problem Noted Date Resolved Date Weakness 05/05/2020 06/15/2020 Decreased mobility and endurance 05/05/2020 06/15/2020 documented as of this encounter (statuses as of 11/05/2021) [facility] History of Past illness Narrative* Problem Noted Date Resolved Date Weakness 05/05/2020 06/15/2020 Decreased mobility and endurance 05/05/2020 06/15/2020 documented as of this encounter (statuses as of 11/09/2021) [facility] History of Past illness Narrative* Problem Noted Date Resolved Date Weakness 05/05/2020 06/15/2020 Decreased mobility and endurance 05/05/2020 06/15/2020 documented as of this encounter (statuses as of 11/18/2021) [facility] History of Past illness Narrative* Problem Noted Date Resolved Date Weakness 05/05/2020 06/15/2020 Decreased mobility and endurance 05/05/2020 06/15/2020 documented as of this encounter (statuses as of 11/22/2021) [facility] History of Past illness Narrative* Problem Noted Date Resolved Date Weakness 05/05/2020 06/15/2020 Decreased mobility and endurance 05/05/2020 06/15/2020 documented as of this encounter (statuses as of 11/30/2021) [facility] History of Past illness Narrative* Problem Noted Date Resolved Date Weakness 05/05/2020 06/15/2020 Decreased mobility and endurance 05/05/2020 06/15/2020 documented as of this encounter (statuses as of 12/03/2021) [facility] History of Past illness Narrative* Problem Noted Date Resolved Date Weakness 05/05/2020 06/15/2020 Decreased mobility and endurance 05/05/2020 06/15/2020 documented as of this encounter (statuses as of 12/20/2021) [facility] History of Past illness Narrative* Problem Noted Date Resolved Date Weakness 05/05/2020 06/15/2020 Decreased mobility and endurance 05/05/2020 06/15/2020 documented as of this encounter (statuses as of 12/28/2021) [facility] History of Past illness Narrative* Problem Noted Date Resolved Date Weakness 05/05/2020 06/15/2020 Decreased mobility and endurance 05/05/2020 06/15/2020 documented as of this encounter (statuses as of 01/04/2022) [facility] History of Past illness Narrative* Problem Noted Date Resolved Date Weakness 05/05/2020 06/15/2020 Decreased mobility and endurance 05/05/2020 06/15/2020 documented as of this encounter (statuses as of 01/07/2022) [facility] History of Past illness Narrative* Problem Noted Date Resolved Date Weakness 05/05/2020 06/15/2020 Decreased mobility and endurance 05/05/2020 06/15/2020 documented as of this encounter (statuses as of 01/14/2022) [facility] History of Past illness Narrative* Problem Noted Date Resolved Date Weakness 05/05/2020 06/15/2020 Decreased mobility and endurance 05/05/2020 06/15/2020 documented as of this encounter (statuses as of 01/14/2022) [facility] History of Past illness Narrative* Problem Noted Date Diagnosed Date Resolved Date Weakness 05/05/2020 06/15/2020 Decreased mobility and endurance 05/05/2020 06/15/2020 documented as of this encounter (statuses as of 02/07/2023) [facility] Malignant neoplasm of rectosigmoid [...] Unspecified essential hypertension [facility] Diagnosis Hospital discharge follow-up- [...] other eye conditions [facility] Diagnosis Abscess of neck- [...] 35-39.9 Obesity, unspecified [facility] Diagnosis Benign prostatic hyperplasia with nocturia- Primary Hematuria, microscopic Microscopic hematuria Screening PSA (prostate specific antigen) Special screening for malignant neoplasm of prostate Nocturia [facility] Diagnosis Hypertension, essential- Primary [...] of both eyes documented in this encounter [facility] note* Diagnosis Glaucoma suspect of both eyes- Primary Preglaucoma, 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 without macular edema associated with type 2 diabetes mellitus (HCC) Nuclear senile cataract of both eyes [facility] Diagnosis Hypertension, essential- Primary [...] of right eye [facility] Diagnosis Stage 3a chronic kidney disease (HCC)- Primary Type 2 diabetes mellitus with stage 3a chronic kidney disease, with long-term current use of insulin ([facility]) Hypertension, essential Unspecified essential hypertension Mixed hyperlipidemia Chronic bilateral low back pain with left-sided sciatica Marijuana use Cannabis abuse, unspecified Vitamin D deficiency Unspecified vitamin D deficiency Obesity, Class II, BMI 35-39.9 Obesity, unspecified Severe episode of recurrent major depressive disorder, without psychotic features ([facility]) [facility] Diagnosis Current moderate episode of major depressive disorder without prior episode (HCC)- Primary [facility] Diagnosis Episode of recurrent major depressive disorder, unspecified depression episode severity (HCC)- Primary [facility] Diagnosis Hypertension, essential- Primary Unspecified essential hypertension Bilateral leg edema Edema Diabetes mellitus due to underlying condition, uncontrolled, with hyperglycemia ([facility]) H/O medication noncompliance Personal history of noncompliance [...] mood disorder Stage 3a chronic kidney disease ([facility]) Encounter for immunization Need for other specified prophylactic vaccination against single bacterial disease [facility] Needs assistance with community resources- Primary Distressed about housing issues Other specified housing or economic circumstances documented in this encounter [facility] note* Diagnosis Hospital discharge follow-up- Primary Other [...] of insulin (HCC) [facility] Diagnosis Nocturia Screening PSA (prostate specific antigen) Special screening for malignant neoplasm of prostate Hematuria, microscopic Microscopic hematuria Benign prostatic hyperplasia with nocturia documented in this encounter [facility] note* Diagnosis Hypertension, essential- Primary Unspecified essential [...] unspecified vomiting type [facility] Diagnosis History of rectal cancer- Primary Personal history of malignant neoplasm of rectum, rectosigmoid junction, and anus Pulmonary nodules Other nonspecific abnormal finding of lung field Hip pain Pain in joint, pelvic region and thigh Spinal stenosis of lumbar region with neurogenic claudication Spinal stenosis, lumbar region, with neurogenic claudication [facility] Diagnosis OPENED IN ERROR- Primary To allow closing an encounter opened in error (used in SmartSet) [facility] Diagnosis Hypertension, essential- Primary [...] extremity edema Edema [facility] Diagnosis Pain in hip- Primary Pain in joint, pelvic region and thigh Lumbar back pain with radiculopathy affecting lower extremity Chronic left hip pain Pain in joint, pelvic region and thigh [facility] Diagnosis Nuclear senile cataract of both eyes- Primary Pain of left hip [facility] Diagnosis Encounter for annual [...] of right eye [facility] Diagnosis Chronic left hip pain Pain in joint, pelvic region and thigh Nuclear senile cataract of right eye [facility] Diagnosis Chronic left hip pain Pain in joint, pelvic region and thigh Nuclear senile cataract of right eye [facility] Diagnosis History of rectal cancer- Primary Personal history of malignant neoplasm of rectum, rectosigmoid junction, and anus Nuclear senile cataract of right eye [facility] Diagnosis Lumbar back pain with radiculopathy affecting lower extremity- Primary Chronic left hip pain Pain in joint, pelvic region and thigh Spinal stenosis of lumbar region, unspecified whether neurogenic claudication present Lumbar radiculopathy Thoracic or lumbosacral neuritis or radiculitis, unspecified Chronic bilateral low back pain with left-sided sciatica Nuclear senile cataract of right eye [facility] Diagnosis Pseudophakia of both eyes- Primary Lens replaced by other means [facility] Diagnosis Lumbar back pain with radiculopathy affecting lower extremity- Primary Chronic bilateral low back pain with left-sided sciatica Lumbar back pain with radiculopathy affecting lower extremity- Primary [facility] Diagnosis Hospital discharge follow-up- Primary [...] region and thigh [facility]* Diagnosis Precordial pain- Primary OTT [...] Unspecified essential hypertension [facility] Diagnosis OTT (dyspnea on exertion) Other dyspnea and respiratory abnormality [facility] Diagnosis Precordial pain OTT (dyspnea on exertion) Other dyspnea and respiratory abnormality Primary hypertension Unspecified essential hypertension [facility] Diagnosis Hypertension, essential- Primary [...] or radiculitis, unspecified [facility] Diagnosis Primary osteoarthritis of left hip- Primary Primary localized osteoarthrosis, pelvic region and thigh Primary osteoarthritis of left hip Primary localized osteoarthrosis, pelvic region and thigh [facility] Diagnosis Poorly controlled type 2 diabetes mellitus (HCC) Type II or unspecified type diabetes mellitus without mention of complication, not stated as uncontrolled documented in this encounter [facility] note* Diagnosis Anemia of renal disease- Primary Anemia in chronic kidney disease Stage 3b chronic kidney disease (HCC) Vitamin D deficiency Unspecified vitamin D deficiency Other proteinuria documented in this encounter [facility] note* Diagnosis Nocturia- Primary Benign prostatic hyperplasia with nocturia Screening PSA (prostate specific antigen) Special screening for malignant neoplasm of prostate documented in this encounter [facility] note* Diagnosis Type 2 diabetes mellitus with both eyes affected by moderate nonproliferative retinopathy without macular edema, with long-term current use of insulin (HCC)- Primary Pseudophakia of both eyes Lens replaced by other means documented in this encounter [facility] note* Diagnosis Anemia of renal disease- Primary [...] (of renal origin) documented in this encounter [facility] note* Diagnosis History of rectal cancer- Primary Personal history of malignant neoplasm of rectum, rectosigmoid junction, and anus documented in this encounter [facility] note* Diagnosis Other specified postprocedural states- Primary Spinal stenosis, lumbar region with neurogenic claudication documented in this encounter [facility] note* Diagnosis Pre-op examination- Primary Preoperative [...] at today's visit. [facility] Diagnosis Pre-op examination- Primary [...] and bone disorder [facility] Diagnosis Pre-op examination- Primary Preoperative [...] disease, with long-term current use of insulin ([facility]) Obesity, Class II, BMI 35-39.9 Obesity, unspecified [...] chronic dialysis (HCC) Diabetes mellitus with nephropathy ([facility]) Type II or unspecified type diabetes mellitus with renal manifestations, not stated as uncontrolled Dietary counseling and surveillance Dietary surveillance and counseling Vitamin D deficiency Unspecified vitamin D deficiency Hypertension, essential Unspecified essential hypertension Hyperuricemia Other abnormal blood chemistry Other proteinuria [facility] noteNo assessment information availableWTriHealth Work Phone: Evaluation note* Diagnosis Chills- Primary Chills (without fever) Chills Chills (without fever) Shakes Abnormal involuntary movements History of chronic renal failure Elevated lactic acid level Chronic pain syndrome documented in this encounter [facility] Plan of care note* Visit Details Visit Type -SN SOC Discipline -Assisted Problems Problem Description Start Date Status Goals [...] indicated to help with indigestion. Taking an [id number] probiotic or eating yogurt with live and [...] precautions/restrictio ns:spinal precautions documented in this encounter [facility] Plan of care note* Visit Details Visit Type -[facility] EVAL Discipline -Electrical Line Splicer Problems Problem Description Start Date Status Goals Interve ntions [facility] Referral Disciplines: Skilled Services 10/22/2023 Resolved on 10/26/2023 1 goal linked to scheduled/documen kurt intervention 1 goal intervention scheduled/document ed in this visit [facility] Corporate Traffic Manager Care Needs Disciplines: [facility] 10/26/2023 Resolved on 10/26/2023 1 goal linked to scheduled/documen kurt intervention 1 goal intervention scheduled/document ed in this visit [facility] General Evaluation and Treatment Disciplines: [facility] 10/26/2023 Resolved on 10/26/2023 1 goal linked to scheduled/documen kurt intervention 1 goal intervention scheduled/document ed in this visit [facility] Social/Emotional Support Disciplines: [facility] 10/26/2023 Resolved on 10/26/2023 1 goal linked to scheduled/documen kurt intervention 1 goal intervention scheduled/document ed in this visit [facility] Caregiver Willingness Disciplines: [facility] 10/26/2023 Resolved on 10/26/2023 1 goal linked to scheduled/documen kurt intervention 1 goal intervention scheduled/document ed in this visit Goals Goal Associated Problem Outcome Goal Met? Visit Notes Patient will be referred to additional discipline as needed [employer]ERSON Referral Completed Yes Patients Jail Care Needs Will Be Met Description: Patients jail care needs will be met by information provided and referrals made. [employer] Jail Care Needs Completed Yes Complete General Evaluation and Treatment Description: patient and caregiver will demonstrate compliance with and participation in the plan of treatment. [employer] General Evaluation and Treatment Completed Yes Provide Social/Emotional Support Description: patient will have adequate social emotional support as evidence by consistent contact with family and friends. [employer] Social/Emotional Support Completed Yes Determine Caregiver Willingness to Care for Patient Description: Caregiver will demonstrate willingness and ability to adequately care for the patient as evidence by providing a safe home environment and providing assistance with all ADL/IADL needs. [employer] Caregiver Willingness Completed Yes Interventions Intervention Associated Problem/Goal Status Variance Visit Notes [employer]OM[employer] PERSON evaluation and treatment Description: [employer] PERSON Referral eval and treat for [employer] or Mom's meals?, eligible for PASSPORT. Pt could use both for personal care and homemaking assist. Problem:[employer]ERSON Referral Goal:Patient will be referred to additional discipline as needed Completed termite exterminator care planning Problem:[employer] Corporate Traffic Manager Care Needs Goal:Patients Jail Care Needs Will Be Met Completed Patients jail care needs will be met by information provided and referral made to [facility] for PASSPORT. 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 Adequate social/emotional support Problem:[employer]ERSON Social/Emotional Support Goal:Provide Social/Emotional Support Completed patient has adequate natural supports. Caregiver Instruction Problem:[employer] Caregiver Willingness Goal:Determine Caregiver Willingness to Care for Patient Completed Caregiver demonstrates willingness and demonstrates ability to assitst in patients ADLs/IADLs needs. 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 [facility] [...] time for safety documented in this encounter [facility] home Plan of care note* Visit Details Visit Type -SN ROUTINE Discipline -Assisted Problems Problem Description Start Date Status Goals [...] and spinal precautions documented in this encounter [facility] home Plan of care note* Visit Details Visit Type -GENERATION TECHNICIAN ROUTINE Discipline -Physical Therapy Problems Problem Description [...] and activity guidelines. documented in this encounter [facility] home Plan of care note* Visit Details Visit Type -SN ROUTINE Discipline -Assisted Problems Problem Description Start Date Status Goals [...] and spinal precautions [facility] Visit [...] x 4 min [facility] Visit Details Visit Type -GENERATION TECHNICIAN ROUTINE Discipline -Physical Therapy Problems Problem Description [...] and activity guidelines. [facility] Visit Details Visit Type -GENERATION TECHNICIAN ROUTINE Discipline -Physical Therapy Problems Problem Description [...] and activity guidelines. [facility] Visit Details Visit Type -SN ROUTINE Discipline -Assisted Problems Problem Description Start Date Status Goals [...] and spinal precautions documented in this encounter [facility] home Plan of care note* Visit [...] occasional unilateral support [facility] Visit Details Visit Type -GENERATION TECHNICIAN ROUTINE Discipline -Physical Therapy Problems Problem Description [...] and activity guidelines. documented in this encounter [facility] home Plan of care note* Visit Details Visit Type -SN DISC DC W VIS IT Discipline -Assisted Problems Problem Description Start Date Status Goals [...] and spinal precautions documented in this encounter [facility] home Plan of care note* Visit [...] home exercise program. documented in this encounter [facility] for referral (narrative)* Diagnostic Procedure Only (Routine) - Authorized Specialty Diagnoses / Procedures Referred By Contac t Referred To Contact XR IMAGING Diagnoses Pain in hip Chronic left hip pain Procedures XR INJ ARTHROGRAM HIP LEFT INJECTION HIP ARTHROGRAPHY W/O ANESTHESIA Binh Lake DO [address] [place] [address] Xr Imaging Referral ID Status Reason Start Date Expiration Date Visits Requested Visits Authorized [id number] Authorized Auto-Generat ed Referral 07/01/2022 07/31/2023 1 1 * MRI/CT (Routine) - Authorized Specialty Diagnoses / Procedures Referred By Contac t Referred To Contact MR IMAGING Diagnoses Pain in hip Chronic left hip pain Procedures MRI ARTHROGRAM HIP LEFT MRI ANY JT LOWER EXTREM W/CONTRAST MATERIAL Binh Lake DO [address] [place] [address] Mr Imaging Referral ID Status Reason Start Date Expiration Date Visits Requested Visits Authorized [id number] Authorized Auto-Generat ed Referral 07/01/2022 07/31/2023 1 1 * Diagnostic Procedure Only (Routine) - Pending Review Specialty Diagnoses / Procedures Referred By Contac t Referred To Contact XR IMAGING Diagnoses Lumbar back pain with radiculopathy affecting lower extremity Procedures XR LUMBAR LIMITED 2V AP/LAT RADEX SPINE LUMBOSACRAL 2/3 VIEWS Binh Lake, DO [address] [place] [address] Xr Imaging Referral ID Status Reason Start Date Expiration Date Visits Requested Visits Authorized [id number] Pending Review Auto-Generat ed Referral 07/01/2022 07/31/2023 1 1 * Diagnostic Procedure Only (Routine) - Pending Review Specialty Diagnoses / Procedures Referred By Contac t Referred To Contact XR IMAGING Diagnoses Pain in hip Chronic left hip pain Procedures XR PELVIS 1V AP RADIOLOGIC EXAMINATION PELVIS 1/2 VIEWS Binh Lake, DO [address] [place] [address] Xr Imaging Referral ID Status Reason Start Date Expiration Date Visits Requested Visits Authorized [id number] Pending Review Auto-Generat ed Referral 07/01/2022 07/31/2023 1 1 [facility] for referral (narrative)* Diagnostic Procedure Only (Routine) - Closed Specialty Diagnoses / Procedures Referred By Contac t Referred To Contact XR IMAGING Diagnoses Pain in hip Chronic left hip pain Procedures XR INJ ARTHROGRAM HIP LEFT INJECTION HIP ARTHROGRAPHY W/O ANESTHESIA Binh Lake DO [address] [place] [address] Xr Imaging Referral ID Status Reason Start Date Expiration Date V isits Requested Visits Authorized [id number] Closed Auto-Generate d Referral 07/01/2022 07/31/2023 1 1 [facility] for referral (narrative)* Outpatient Procedure (Routine) - Pending Review Specialty Diagnoses / Procedures Referred By Contac t Referred To Contact [facility] Diagnoses History of rectal cancer Procedures COLONOSCOPY SCREENING COLONOSCOPY FLX DX W/COLLJ SPEC WHEN PFRMD Artem Ahmadi MD [address] [address] [facility] [place] [address] [place] [id number] Referral ID Status Reason Start Date Expiration Date Visits Requested Visits Authorized [id number] Pending Review Auto-Generat ed Referral 09/02/2022 09/03/2023 1 1 [facility] for referral (narrative)* Outpatient Procedure (Routine) - Authorized Specialty Diagnoses / Procedures Referred By Contac t Referred To Contact [facility] Diagnoses OTT (dyspnea on exertion) Procedures ECHO ECHO TTHRC R-T 2D W/WOM-MODE COMPL SPEC&COLR D Sukumar Toney MD [address] [place] [address] [facility] [place] [address] [place] [address] Referral ID Status Reason Start Date Expiration Date Visits Requested Visits Authorized [id number] Authorized Auto-Generat ed Referral 10/13/2022 10/13/2023 1 1 * Diagnostic Procedure Only (Routine) - Authorized Specialty Diagnoses / Procedures Referred By Contac t Referred To Contact [facility] Diagnoses Precordial pain OTT (dyspnea on exertion) Primary hypertension Procedures NM CARDIAC PERF STRESS/PHARM MYOCARDIAL SPECT MULTIPLE STUDIES Sukumar Toney MD [address] [place] [address] [facility] [address] [phone] Referral ID Status Reason Start Date Expiration Date Visits Requested Visits Authorized [id number] Authorized Auto-Generat ed Referral 10/13/2022 11/12/2023 1 1 T [facility] for referral (narrative)* Outpatient Procedure (Routine) - Closed Specialty Diagnoses / Procedures Referred By Vadim wiseman Referred To [facility] Diagnoses OTT (dyspnea on exertion) Procedures ECHO ECHO TTHRC R-T 2D W/WOM-MODE COMPL SPEC&COLR D Sukumar Toney MD [address] [place] [address] [facility] [place] [address] [place] [address] Referral ID Status Reason Start Date Expiration Date V isits Requested Visits Authorized [id number] Closed Auto-Generate d Referral 10/13/2022 10/13/2023 1 1 T [facility] for referral (narrative)* Diagnostic Procedure Only (Routine) - Closed Specialty Diagnoses / Procedures Referred By Vadim wiseman Referred To Contact [facility] Diagnoses Precordial pain OTT (dyspnea on exertion) Primary hypertension Procedures NM CARDIAC PERF STRESS/PHARM MYOCARDIAL SPECT MULTIPLE STUDIES Sukumar Toney MD [address] [place] [address] [facility] [address] [phone] Referral ID Status Reason Start Date Expiration Date V isits Requested Visits Authorized [id number] Closed Auto-Generate d Referral 10/13/2022 11/12/2023 1 1 [facility] for referral (narrative)* Outpatient Procedure (Routine) - Pending Review Specialty Diagnoses / Procedures Referred By Vadim t Referred To Contact [facility] Diagnoses History of rectal cancer Procedures COLONOSCOPY SCREENING COLONOSCOPY FLX DX W/COLLJ SPEC WHEN Artem Osborne MD [address] [address] [facility] [place] [address] [place] [address] Referral ID Status Reason Start Date Expiration Date Visits Requested Visits Authorized [id number] Pending Review Auto-Generat ed Referral 4 02/19/2025 1 1 [facility] for referral (narrative)No reason for referral information availableWTriHealth Work Phone: [facility] Narrative* Diagnostic Procedure Only (Routine) - Closed Specialty Diagnoses / Procedures Referred By Contac t Referred To Contact XR IMAGING Diagnoses Pain in hip Chronic left hip pain Procedures XR INJ ARTHROGRAM HIP LEFT INJECTION HIP ARTHROGRAPHY W/O ANESTHESIA Binh Lake, DO [address] [place] [address] Xr Imaging Referral ID Status Reason Start Date Expiration Date V isits Requested Visits Authorized [id number] Closed Auto-Generate d Referral 07/01/2022 07/31/2023 1 1 [facility] for visit Narrative* Outpatient Procedure (Routine) - Closed Specialty Diagnoses / Procedures Referred By Contac t Referred To Contact [facility] Diagnoses OTT (dyspnea on exertion) Procedures ECHO ECHO TTHRC R-T 2D W/WOM-MODE COMPL SPEC&COLR D Sukumar Toney MD [address] [place] [address] [facility] [place] [address] [place] [address] Referral ID Status Reason Start Date Expiration Date V isits Requested Visits Authorized [id number] Closed Auto-Generate d Referral 10/13/2022 10/13/2023 1 1 [facility] for visit Narrative* Diagnostic Procedure Only (Routine) - Closed Specialty Diagnoses / Procedures Referred By Contac t Referred To Contact [facility] Diagnoses Precordial pain OTT (dyspnea on exertion) Primary hypertension Procedures NM CARDIAC PERF STRESS/PHARM MYOCARDIAL SPECT MULTIPLE STUDIES Sukumar Toney MD [address] [place] [address] [facility] [address] [phone] Referral ID Status Reason Start Date Expiration Date V isits Requested Visits Authorized [id number] Closed Auto-Generate d Referral 10/13/2022 11/12/2023 1 1 [facility] Out[facility] Procedure (Routine) - Closed Specialty Diagnoses / Procedures Referred By Contellis t Referred To Contact Diagnoses History of rectal cancer Procedures COLONOSCOPY SCREENING COLONOSCOPY FLX DX W/COLLJ SPEC WHEN Artem Osborne MD [address] [address] Phone: tel: fax: [address] [address] Phone: tel: Referral ID Status Reason Start Date Expiration Date V isits Requested Visits Authorized [id number] Closed Auto-Generate d Referral 05/13/2024 08/11/2024 1 1 [facility] Reason for Referral Status Reason Specialty Diagnoses / Procedures Referred By Contact Referred To Contact Ref Not Required PCP Requested Referral Diagnoses Anxiety with depression Procedures CONSULT [facility] Belgica Herrrea [address] [place] [address] Status Reason Specialty Diagnoses / Procedures Referred By Contact Referred To Contact Ref Not Required PCP Requested Referral Diagnoses Chronic bilateral low back pain with sciatica, sciatica laterality unspecified Procedures CONSULT TO PHYSICAL THERAPY (AG) Belgica Herrera [address] [place] [address] Status Reason Specialty Diagnoses / Procedures Referred By Contact Referred To Contact Authorized PCP Requested Referral Orthopedics Diagnoses Chronic bilateral low back pain with sciatica, sciatica laterality unspecified Procedures CONSULT TO ORTHOPAEDIC SURGERY NEW PATIENT VISIT LEVEL 5 Belgica Herrera [address] [place] [address] Status Reason Specialty Diagnoses / Procedures Referred By Contact Referred To Contact Authorized PCP Requested Referral Ent - Otolaryngology Diagnoses Dizziness Tinnitus aurium, bilateral Procedures CONSULT TO ENT NEW PATIENT VISIT LEVEL 5 Belgica Herrera [address] [place] [address] Status Reason Specialty Diagnoses / Procedures Referred By Contact Referred To Contact Authorized PCP Requested Referral Ophthalmology Diagnoses Diabetes mellitus due to underlying condition, uncontrolled, with hyperglycemia (HCC) Dizziness Procedures CONSULT TO OPHTHALMOLOGY NEW PATIENT VISIT LEVEL 5 Javier Belgica Brandon [facility] [place] [address] Status Reason Specialty Diagnoses / Procedures Referred By Contact Referred To Contact Authorized PCP Requested Referral Diagnoses Diabetes mellitus due to underlying condition, uncontrolled, with hyperglycemia (HCC) Obesity, Class II, BMI 35-39.9 Procedures CONSULT TO DIABETES EDUCATION NEW PATIENT VISIT LEVEL 5 Belgica Herrera [facility] [address] Status Reason Specialty Diagnoses / Procedures Referred By Contact Referred To Contact Authorized PCP Requested Referral Orthopedics Diagnoses Left shoulder pain, unspecified chronicity Procedures CONSULT TO ORTHOPAEDIC SURGERY NEW PATIENT VISIT LEVEL 5 Belgica Herrera [facility] [address] Status Reason Specialty Diagnoses / Procedures Referred By Contact Referred To Contact Ref Not Required PCP Requested Referral Diagnoses Left shoulder pain, unspecified chronicity Procedures CONSULT TO PHYSICAL THERAPY (AG) Belgica Herrera [facility] [address] Status Reason Specialty Diagnoses / Procedures Referred By Contact Referred To Contact Authorized PCP Requested Referral Endocrinology Diagnoses Uncontrolled type 2 diabetes mellitus with hyperglycemia (HCC) Procedures CONSULT TO ENDOCRINOLOGY NEW PATIENT VISIT LEVEL 5 Belgica Herrera [facility] [address] Status Reason Specialty Diagnoses / Procedures Referred By Contact Referred To Contact Authorized PCP Requested Referral Ophthalmology Diagnoses Screening for diabetic retinopathy Uncontrolled type 2 diabetes mellitus with hyperglycemia (HCC) Procedures CONSULT TO OPHTHALMOLOGY NEW PATIENT VISIT LEVEL 5 Belgica Herrera [facility] [address] Status Reason Specialty Diagnoses / Procedures Referred By Contact Referred To Contact Ref Not Required PCP Requested Referral Neurology Diagnoses Chronic nausea Chronic vertigo Procedures CONSULT [place] [address] Status Reason Specialty Diagnoses / Procedures Referred By Contact Referred To Contact Authorized PCP Requested Referral Gastroenterology Diagnoses Drooling Procedures CONSULT TO GASTROENTEROLOGY NEW PATIENT VISIT LEVEL 5 Belgica Herrera [address] [place] [address] Status Reason Specialty Diagnoses / Procedures Referred By Contact Referred To Contact Authorized PCP Requested Referral Rheumatology Diagnoses Myalgia Procedures CONSULT TO RHEUM/IMMUN DISEASE NEW PATIENT VISIT LEVEL 5 Belgica Herrera [address] [place] [address] Specialty Diagnoses / Procedures Referred By Contac t Referred To Contact MR IMAGING Diagnoses Malignant neoplasm of rectosigmoid junction (HCC) Procedures MRI PELVIS WO/W IVCON MRI PELVIS W/WO CONTRAST Artem Ahmadi MD [address] [place] [address] Mr Imaging Referral ID Status Reason Start Date Expiration Date V isits Requested Visits Authorized [id number] Closed Auto-Generate d Referral 06/10/2021 01/10/2022 1 1 Specialty Diagnoses / Procedures Referred By Contac t Referred To Contact Ophthalmology Diagnoses Screening for diabetic retinopathy Procedures CONSULT TO OPHTHALMOLOGY OFFICE/OUTPATIENT [facility] 60-74 MINUTES Belgica Vega DO [address] [facility] [address] [place] [address] Referral ID Status Reason Start Date Expiration Date Visits Requested Visits Authorized [id number] Authorized PCP Requested Referral 09/20/2021 09/20/2022 1 1 Specialty Diagnoses / Procedures Referred By Contac t Referred To Contact Nephrology Diagnoses Elevated serum creatinine Microalbuminuria Procedures CONSULT TO NEPHROLOGY OFFICE/OUTPATIENT [facility]DM 60-74 MINUTES Belgica Vega DO [address] [facility] [address] [place] [address] Referral ID Status Reason Start Date Expiration Date Visits Requested Visits Authorized [id number] Authorized PCP Requested Referral 10/05/2021 10/05/2022 1 1 Specialty Diagnoses / Procedures Referred By Contac t Referred To Contact Psychology Diagnoses Anxiety and depression Difficulty controlling anger Oppositional defiant disorder with chronic irritability and anger Procedures CONSULT TO PSYCHOLOGY OFFICE/OUTPATIENT [facility] 60-74 MINUTES Belgica Vega DO [address] [place] [id number] Referral ID Status Reason Start Date Expiration Date Visits Requested Visits Authorized [id number] Pending Review PCP Requested Referral 01/03/2022 01/03/2023 1 1 Specialty Diagnoses / Procedures Referred By Contac t Referred To Contact [facility] [place] Diagnoses Chronic bilateral low back pain with left-sided sciatica Procedures CONSULT TO [facility] OFFICE/OUTPATIENT [facility] 60-74 MINUTES Billy Martinez MD [address] [place] [address] Referral ID Status Reason Start Date Expiration Date Visits Requested Visits Authorized [id number] Authorized PCP Requested Referral 2 01/17/2023 1 1 Specialty Diagnoses / Procedures Referred By Contac t Referred To Contact Endocrinology Diagnoses Type 2 diabetes mellitus with stage 3a chronic kidney disease, with long-term current use of insulin (HCC) Obesity, Class II, BMI 35-39.9 Procedures CONSULT TO ENDOCRINOLOGY OFFICE/OUTPATIENT [facility] 60-74 MINUTES Billy Martinez MD [address] [place] [address] Referral ID Status Reason Start Date Expiration Date Visits Requested Visits Authorized [id number] Authorized PCP Requested Referral 2 01/17/2023 1 1 Specialty Diagnoses / Procedures Referred By Contac t Referred To Contact Endocrinology Diagnoses Diabetes mellitus due to underlying condition, uncontrolled, with hyperglycemia (HCC) Procedures CONSULT TO ENDOCRINOLOGY OFFICE/OUTPATIENT [facility] 60-74 MINUTES Belgica Vega DO [address] [place] [address] Referral ID Status Reason Start Date Expiration Date Visits Requested Visits Authorized [id number] Authorized PCP Requested Referral 2 03/01/2023 1 1 Specialty Diagnoses / Procedures Referred By Contac t Referred To Contact Oncology Diagnoses Malignant neoplasm of rectum (HCC) Procedures CONSULT TO ONCOLOGY OFFICE/OUTPATIENT [facility] 60-74 MINUTES Belgica Vega DO [address] [address] Referral ID Status Reason Start Date Expiration Date Visits Requested Visits Authorized [id number] Pending Review PCP Requested Referral 05/18/2022 05/18/2023 1 1 Specialty Diagnoses / Procedures Referred By Contac t Referred To Contact CT IMAGING Diagnoses Pulmonary nodules Procedures CT CHEST WO IVCON DIAGNOSTIC COMPUTED TOMOGRAPHY THORAX W/O CNTRST Rory Mendoza MD [address] [place] [address] Ct Imaging Referral ID Status Reason Start Date Expiration Date Visits Requested Visits Authorized [id number] Pending Review Auto-Generat ed Referral 06/05/2022 07/05/2023 1 1 Specialty Diagnoses / Procedures Referred By Contac t Referred To Contact Orthopedics Diagnoses Hip pain Procedures CONSULT TO ORTHOPAEDICS OFFICE/OUTPATIENT [facility] 60-74 MINUTES Rory Mendoza MD [address] [place] [address] Referral ID Status Reason Start Date Expiration Date Visits Requested Visits Authorized [id number] Pending Review PCP Requested Referral 06/01/2022 06/01/2023 1 1 Specialty Diagnoses / Procedures Referred By Contac t Referred To Contact Podiatry Diagnoses Diabetic peripheral neuropathy associated with type 2 diabetes mellitus (HCC) Onychomycosis Procedures CONSULT TO PODIATRY OFFICE/OUTPATIENT [facility] 60-74 MINUTES Belgica Vega DO [address] [place] [address] Referral ID Status Reason Start Date Expiration Date Visits Requested Visits Authorized [id number] Pending Review PCP Requested Referral 08/12/2022 08/12/2023 1 1 Specialty Diagnoses / Procedures Referred By Contac t Referred To Contact MR IMAGING Diagnoses Pain in hip Chronic left hip pain Procedures MRI ARTHROGRAM HIP LEFT MRI ANY JT LOWER EXTREM W/CONTRAST MATERIAL Binh Lake DO [address] [place] [address] Mr Imaging Referral ID Status Reason Start Date Expiration Date V isits Requested Visits Authorized [id number] Closed Auto-Generate d Referral 07/01/2022 07/31/2023 1 [...] Binh Lake, DO [address] [address] Mr Imaging Referral ID Status Reason Start Date Expiration Date Visits Requested Visits Authorized [id number] Authorized Auto-Generat ed Referral 09/02/2022 10/02/2023 1 [...] present Procedures CONSULT TO PAIN MGT OFFICE/OUTPATIENT [facility] 60-74 MINUTES Binh Lake, DO [address] [address] Luis Carlos Lee MD [address] [place] [address] Referral ID Status Reason Start Date Expiration Date Visits Requested Visits Authorized [id number] Pending Review PCP Requested Referral 09/02/2022 09/02/2023 1 1 Specialty Diagnoses / Procedures Referred By Contac t Referred To Contact Orthopedics Diagnoses Lumbar back pain with radiculopathy affecting lower extremity Chronic bilateral low back pain with left-sided sciatica Procedures CONSULT TO ORTHOPAEDICS OFFICE/OUTPATIENT [facility] 60-74 MINUTES Binh Lake, DO [address] [address] Emerson Glaser MD [address] [place] [address] Referral ID Status Reason Start Date Expiration Date Visits Requested Visits Authorized [id number] Pending Review PCP Requested Referral 09/23/2022 12/22/2022 1 1 Specialty Diagnoses / Procedures Referred By Contac t Referred To Contact Dermatology Diagnoses Hidradenitis suppurativa Cutaneous abscess of abdominal wall Procedures CONSULT TO DERMATOLOGY OFFICE/OUTPATIENT [facility] 60-74 MINUTES Belgica Vega DO [address] [place] [address] Referral ID Status Reason Start Date Expiration Date Visits Requested Visits Authorized [id number] Pending Review PCP Requested Referral 09/28/2022 09/28/2023 1 1 Specialty Diagnoses / Procedures Referred By Contac t Referred To Contact Nephrology Diagnoses Stage 3 chronic kidney disease, unspecified whether stage 3a or 3b CKD (HCC) Hyponatremia Procedures CONSULT TO NEPHROLOGY OFFICE/OUTPATIENT [facility] 60-74 MINUTES Belgica Vega DO [address] [place] [address] Referral ID Status Reason Start Date Expiration Date Visits Requested Visits Authorized [id number] Pending Review PCP Requested Referral 09/28/2022 09/28/2023 1 1 Specialty Diagnoses / Procedures Referred By Contac t Referred To Contact Cardiology Diagnoses Myocardial infarction due to demand ischemia (HCC) Procedures CONSULT TO CARDIOLOGY OFFICE/OUTPATIENT [facility] 60-74 MINUTES Belgica Vega DO [address] [place] [address] Referral ID Status Reason Start Date Expiration Date Visits Requested Visits Authorized [id number] Pending Review PCP Requested Referral 09/28/2022 12/27/2022 1 1 Specialty Diagnoses / Procedures Referred By Contac t Referred To Contact Neurology Diagnoses Chronic bilateral low back pain with left-sided sciatica Spinal stenosis of lumbar region with neurogenic claudication Chronic left hip pain Lumbar radiculopathy Procedures CONSULT TO NEUROLOGY OFFICE/OUTPATIENT [facility] 60-74 MINUTES Belgica Vega DO [address] [place] [address] Referral ID Status Reason Start Date Expiration Date Visits Requested Visits Authorized [id number] Pending Review PCP Requested Referral 11/04/2022 11/04/2023 1 1 Specialty Diagnoses / Procedures Referred By Contac t Referred To Contact Dermatology Diagnoses Hidradenitis suppurativa Procedures CONSULT TO DERMATOLOGY OFFICE/OUTPATIENT [facility] 60-74 MINUTES Belgica Vega DO [address] [place] [address] Referral ID Status Reason Start Date Expiration Date Visits Requested Visits Authorized [id number] Pending Review PCP Requested Referral 11/04/2022 11/04/2023 1 1 Specialty Diagnoses / Procedures Referred By Contac t Referred To Contact Nutrition Diagnoses Diabetes mellitus due to underlying condition, uncontrolled, with hyperglycemia (HCC) H/O medication noncompliance Procedures CONSULT TO NUTRITION THERAPY MEDICAL NUTRITION ASSMT&IVNTJ INDIV EACH 15 RI MEDICAL NUTRITION ASSMT&IVNTJ INDIV EACH 15 RI MEDICAL NUTRITION ASSMT&IVNTJ INDIV EACH 15 RI MEDICAL NUTRITION ASSMT&IVNTJ INDIV EACH 15 RI Belgica Vega DO [address] [place] [address] Referral ID Status Reason Start Date Expiration Date Visits Requested Visits Authorized [id number] Pending Review PCP Requested Referral 11/04/2022 11/04/2023 1 1 Specialty Diagnoses / Procedures Referred By Contac t Referred To Contact Endocrinology Diagnoses Diabetes mellitus due to underlying condition, uncontrolled, with hyperglycemia (HCC) H/O medication noncompliance Procedures CONSULT TO ENDOCRINOLOGY OFFICE/OUTPATIENT [facility] 60-74 MINUTES Belgica Vega DO [address] [place] [id number] Referral ID Status Reason Start Date Expiration Date Visits Requested Visits Authorized [id number] Pending Review PCP Requested Referral 11/04/2022 11/04/2023 1 1 Specialty Diagnoses / Procedures Referred By Contac t Referred To Contact Pain Management Diagnoses Chronic pain syndrome Cancer associated pain Chronic bilateral low back pain with left-sided sciatica Spinal stenosis of lumbar region with neurogenic claudication Lumbar radiculopathy Procedures CONSULT TO PAIN MGT Belgica Vega DO [address] [place] [address] Referral ID Status Reason Start Date Expiration Date Visits Requested Visits Authorized [id number] Ref Not Required PCP Requested Referral 12/23/2022 12/23/2023 1 1 History of Present Illness * Belgica Herrera - 02/14/2020 4:48 PM EST Belgica Herrera DO [address] [place] [address] Visit Date: February 14, 2020 Mr.Jim Najma Ashton Date of : 1960 MRN/E #: [id number] History of Present Illness José Manuel Ashton is a 59 year old male. Patient presents to the clinic today for new patient visit HPI Patient is new to me. Patient is here for physical exam. Pt is from [place]. Patient desires handicap placard on the basis [...] ICD10: E11.9 The patient is new to [place]. - Check HgA1C and fasting lipid panel [...] 3:30 PM EST Belgica Herrera DO [address] [place] [address] Visit Date: February 20, 2020 Mr.Jim Najma Ashton Date of : 1960 MRN/E #: [id number] History of Present Illness José Manuel Ashton [...] want to check BS. Pt states [facility] ran out of Integrated biometrics met. Was told they would call once get in.was suppose to be in yesterday but they never called. Pt states he will check with them. Pt indicates wants to avoid shots, dislikes needles. Pt recalls aic being 8-9 when on acto plus Next Points, it wasn't 13. 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 Has hx of of bad [...] 02/17/2020 1.62 1.00 - 4.00 k/uL Final [place]% 02/17/2020 9.2 % Final Abs [place] 02/17/2020 0.73 <0.87 k/uL Final Eosin% 02/17/2020 [...] 322* 74 - 99 mg/dL Final The [place] Diabetes Association (ADA) provides guidance for cutoff [...] Standards of Medical Care in Diabetes 2016, [place] Diabetes Association. Diabetes Care. 2016.39(Suppl 1). BUN [...] Desk Reference: National Heart, Lung, and Blood [place]. National Institutes of Health. 2001: NIH Publication No. 01-3305. 2. An International Atherosclerosis Society position paper: global recommendations for the management of dyslipidemia: executive summary, Atherosclerosis. 2014: 232(2):410-413. PSA 02/17/2020 0.75 0.00 - 3.90 ng/mL Final Total PSA test methodology used is the Direct Chemiluminometric technology. TSH 02/17/2020 1.160 0.270 - 4.200 uU/mL Final Hemoglobin A1C 02/17/2020 13.2* 4.3 - 5.6 % Final [place] Diabetes Association guidelines indicate that patients with HgbA1c in the range 5.7-6.4% are at increased risk for development of diabetes, and intervention by lifestyle modification may be beneficial. HgbA1c greater or equal to 6.5% is considered diagnostic of diabetes. Estimated Average Glucose 02/17/2020 332 mg/dL Final eAG: (Estimated average glucose) is a calculated value from HgbA1c and is veterans service representative of the average blood glucose [...] 12 Combo (Ag/Ab) 02/17/2020 Nonreactive Nonreactive Final [place] Rev. Code 3701.243(E): This information has been [...] 3:52 PM EST Belgica Herrera DO [address] [place] [address] Visit Date: March 23, 2020 Mr.Jim Najma Ashton Date of : 1960 MRN/E #: [id number] History of Present Illness José Manuel Ashton [...] 02/17/2020 1.62 1.00 - 4.00 k/uL Final [place]% 02/17/2020 9.2 % Final Abs [place] 02/17/2020 0.73 <0.87 k/uL Final Eosin% 02/17/2020 [...] 322* 74 - 99 mg/dL Final The [place] Diabetes Association (ADA) provides guidance for cutoff [...] Standards of Medical Care in Diabetes 2016, [place] Diabetes Association. Diabetes Care. 2016.39(Suppl 1). BUN [...] Desk Reference: National Heart, Lung, and Blood [place]. National Institutes of Health. 2001: NIH Publication No. 01-3305. 2. An International Atherosclerosis Society position paper: global recommendations for the management of dyslipidemia: executive summary, Atherosclerosis. 2014: 232(2):410-413. PSA 02/17/2020 0.75 0.00 - 3.90 ng/mL Final Total PSA test methodology used is the Direct Chemiluminometric technology. TSH 02/17/2020 1.160 0.270 - 4.200 uU/mL Final Hemoglobin A1C 02/17/2020 13.2* 4.3 - 5.6 % Final [place] Diabetes Association guidelines indicate that patients with HgbA1c in the range 5.7-6.4% are at increased risk for development of diabetes, and intervention by lifestyle modification may be beneficial. HgbA1c greater or equal to 6.5% is considered diagnostic of diabetes. Estimated Average Glucose 02/17/2020 332 mg/dL Final eAG: (Estimated average glucose) is a calculated value from HgbA1c and is veterans service representative of the average blood glucose [...] 12 Combo (Ag/Ab) 02/17/2020 Nonreactive Nonreactive Final [place] Rev. Code 3701.243(E): This information has been [...] 04/27/2020 3:51 PM EST Belgica Herrera DO [address] [place] [address] Visit Date: April 27, 2020 Mr.Jim Najma Ashton Date of : 1960 MRN/E #: [id number] History of Present Illness José Manuel Ashton [...] 02/17/2020 1.62 1.00 - 4.00 k/uL Final [place]% 02/17/2020 9.2 % Final Abs [place] 02/17/2020 0.73 <0.87 k/uL Final Eosin% 02/17/2020 [...] 322* 74 - 99 mg/dL Final The [place] Diabetes Association (ADA) provides guidance for cutoff [...] Standards of Medical Care in Diabetes 2016, [place] Diabetes Association. Diabetes Care. 2016.39(Suppl 1). BUN [...] Desk Reference: National Heart, Lung, and Blood [place]. National Institutes of Health. 2001: NIH Publication No. 01-3305. 2. An International Atherosclerosis Society position paper: global recommendations for the management of dyslipidemia: executive summary, Atherosclerosis. 2014: 232(2):410-413. PSA 02/17/2020 0.75 0.00 - 3.90 ng/mL Final Total PSA test methodology used is the Direct Chemiluminometric technology. TSH 02/17/2020 1.160 0.270 - 4.200 uU/mL Final Hemoglobin A1C 02/17/2020 13.2* 4.3 - 5.6 % Final [place] Diabetes Association guidelines indicate that patients with HgbA1c in the range 5.7-6.4% are at increased risk for development of diabetes, and intervention by lifestyle modification may be beneficial. HgbA1c greater or equal to 6.5% is considered diagnostic of diabetes. Estimated Average Glucose 02/17/2020 332 mg/dL Final eAG: (Estimated average glucose) is a calculated value from HgbA1c and is veterans service representative of the average blood glucose [...] 12 Combo (Ag/Ab) 02/17/2020 Nonreactive Nonreactive Final [place] Rev. Code 3701.243(E): This information has been [...] of Care: created on 05/05/20 through 06/16/20 [place] in home exercise program. Patient will follow [...] Planned: 12(TBD) Planned Treatment Interventions: Therapeutic exercise (98484);Neuromuscular re- education (56227);Manual therapy (26780);Therapeutic activities (33109);Self- group home management (04000);Gait Training (54866);Body Mechanics Training;E- Stim Unattended (33597);Ultrasound (58091) PLAN FOR NEXT VISIT: Hold outpatient PT at this time, patient to follow up with physician [facility] PT. Patient demonstrates good understanding of plan [...] Evaluation Billing: Jude: Evaluation - Moderate Complexity (23284) Therapeutic Exercise (07906): 1:1 time: 10 minutes (1 unit: 8-22 mins) Total time / Length of visit: 60 minutes Carla Tripathi, PT documented in this encounter* Jaeysh Barajas (Rt), Anne Marie - 05/14/2020 2:00 [...] Benedict (Criss) - 05/28/2020 12:52 PM EST [facility]ISS [address] [facility] 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 The patient stated [...] Personal History: The patient was born in [place], [place]. He was the youngest of 17 children born to his mother and father. Most of his siblings were in the home when he was born. He feels that his childhood was awesome. His mother worked as a homemaker. His father was a crane operator cab. He recalled both of his parents working all day long. Many of his siblings have . The patient went to high school in [place], [place]. He was not a good student. He never graduated. 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 One of his brothersmoved to [place] and he moved with him in 1983 at the age of 23. 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 When his brother got he moved into a [employer] where everybody had their own room. His brother still resides in [place] but he felt that there were other family members that he would like to be close to and moved back to [place] last December. Support Systems: At the present [...] Thought: Normal. Abstract Thinking: Normal. Thought Content: [place]. Cognition - Immediate Recall : Intact Remote [...] 05/28/2020 4:07 PM EST Belgica Herrera DO [address] [place] [address] Visit Date: May 28, 2020 Mr.Jim Najma Ashton Date of : 1960 MRN/E #: [id number] History of Present Illness José Manuel Ashton [...] Ketones, Urine 05/14/2020 Trace* Negative Final Specific [place], Ur 05/14/2020 1.042* 1.005 - 1.030 Final [...] 05/14/2020 10.5* 4.3 - 5.6 % Final [place] Diabetes Association guidelines indicate that patients with HgbA1c in the range 5.7-6.4% are at increased risk for development of diabetes, and intervention by lifestyle modification may be beneficial. HgbA1c greater or equal to 6.5% is considered diagnostic of diabetes. Estimated Average Glucose 05/14/2020 255 mg/dL Final eAG: (Estimated average glucose) is a calculated value from HgbA1c and is veterans service representative of the average blood glucose [...] Desk Reference: National Heart, Lung, and Blood [place]. National Institutes of Health. 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 Advance Directive(s) 04/13/2021 1:40 AM Advance Directive(s) 04/12/2021 2:50 PM Advance Directive(s) 02/19/2021 5:11 PM Advance Directive(s) 01/08/2021 6:55 PM Advance Directive(s) 11/24/2020 6:01 AM Advance Directive(s) 09/21/2020 10:29 AM Advance Directive(s) 07/24/2020 7:09 AM Documents on File Type Date Recorded 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 Advance Directive(s) 09/02/2021 8:46 PM Advance Directive(s) 04/13/2021 1:40 AM Advance Directive(s) 04/12/2021 2:50 PM Advance Directive(s) 02/19/2021 5:11 PM Advance Directive(s) 01/08/2021 6:55 PM Advance Directive(s) 11/24/2020 6:01 AM Advance Directive(s) 09/21/2020 10:29 AM Advance Directive(s) 07/24/2020 7:09 AM Documents on File Type Date Recorded 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 anation Advance Directive(s) 09/06/2021 9:37 PM Advance Directive(s) 09/02/2021 8:46 PM Advance Directive(s) 04/13/2021 1:40 AM Advance Directive(s) 04/12/2021 2:50 PM Advance Directive(s) 02/19/2021 5:11 PM Advance Directive(s) 01/08/2021 6:55 PM Advance Directive(s) 11/24/2020 6:01 AM Advance Directive(s) 09/21/2020 10:29 AM Advance Directive(s) 07/24/2020 7:09 AM Documents on File Type Date Recorded 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 Advance Directive(s) 09/06/2021 9:37 PM [...] the event of a Fluress shortage, administer [place]-Fluor 1 drop into both eyes as directed [...] or prosecute any alcohol or drug abuse patient.[facility] HospitalIn the event this information is protected by the Federal Confidentiality of Alcohol and Drug Abuse Patient Records regulations: The Federal rules restrict any use of the information to criminally investigate or prosecute any alcohol or drug abuse patient.[facility] HospitalIn the event this information is protected by the Federal Confidentiality of Alcohol and Drug Abuse Patient Records regulations: The Federal rules restrict any use of the information to criminally investigate or prosecute any alcohol or drug abuse patient.[facility] HospitalIn the event this information is protected by the Federal Confidentiality of Alcohol and Drug Abuse Patient Records regulations: The Federal rules restrict any use of the information to criminally investigate or prosecute any alcohol or drug abuse patient.[facility] HospitalIn the event this information is protected by the Federal Confidentiality of Alcohol and Drug Abuse Patient Records regulations: The Federal rules restrict any use of the information to criminally investigate or prosecute any alcohol or drug abuse patient.[facility] HospitalIn the event this information is protected by the Federal Confidentiality of Alcohol and Drug Abuse Patient Records regulations: The Federal rules restrict any use of the information to criminally investigate or prosecute any alcohol or drug abuse patient.[facility] HospitalIn the event this information is protected by the Federal Confidentiality of Alcohol and Drug Abuse Patient Records regulations: The Federal rules restrict any use of the information to criminally investigate or prosecute any alcohol or drug abuse patient.[facility] HospitalIn the event this information is protected by the Federal Confidentiality of Alcohol and Drug Abuse Patient Records regulations: The Federal rules restrict any use of the information to criminally investigate or prosecute any alcohol or drug abuse patient.[facility] HospitalIn the event this information is protected by the Federal Confidentiality of Alcohol and Drug Abuse Patient Records regulations: The Federal rules restrict any use of the information to criminally investigate or prosecute any alcohol or drug abuse patient.[facility] HospitalIn the event this information is protected by the Federal Confidentiality of Alcohol and Drug Abuse Patient Records regulations: The Federal rules restrict any use of the information to criminally investigate or prosecute any alcohol or drug abuse patient.[facility] HospitalIn the event this information is protected [...] or prosecute any alcohol or drug abuse patient.[facility] HospitalIn the event this information is protected by the Federal Confidentiality of Alcohol and Drug Abuse Patient Records regulations: The Federal rules restrict any use of the information to criminally investigate or prosecute any alcohol or drug abuse patient.[facility] HospitalIn the event this information is protected by the Federal Confidentiality of Alcohol and Drug Abuse Patient Records regulations: The Federal rules restrict any use of the information to criminally investigate or prosecute any alcohol or drug abuse patient.[facility] HospitalIn the event this information is protected by the Federal Confidentiality of Alcohol and Drug Abuse Patient Records regulations: The Federal rules restrict any use of the information to criminally investigate or prosecute any alcohol or drug abuse patient.[facility] HospitalIn the event this information is protected by the Federal Confidentiality of Alcohol and Drug Abuse Patient Records regulations: The Federal rules restrict any use of the information to criminally investigate or prosecute any alcohol or drug abuse patient.[facility] HospitalIn the event this information is protected by the Federal Confidentiality of Alcohol and Drug Abuse Patient Records regulations: The Federal rules restrict any use of the information to criminally investigate or prosecute any alcohol or drug abuse patient.[facility] HospitalIn the event this information is protected by the Federal Confidentiality of Alcohol and Drug Abuse Patient Records regulations: The Federal rules restrict any use of the information to criminally investigate or prosecute any alcohol or drug abuse patient.[facility] HospitalIn the event this information is protected by the Federal Confidentiality of Alcohol and Drug Abuse Patient Records regulations: The Federal rules restrict any use of the information to criminally investigate or prosecute any alcohol or drug abuse patient.[facility] HospitalIn the event this information is protected by the Federal Confidentiality of Alcohol and Drug Abuse Patient Records regulations: The Federal rules restrict any use of the information to criminally investigate or prosecute any alcohol or drug abuse patient.[facility] HospitalIn the event this information is protected by the Federal Confidentiality of Alcohol and Drug Abuse Patient Records regulations: The Federal rules restrict any use of the information to criminally investigate or prosecute any alcohol or drug abuse patient.[facility] HospitalIn the event this information is protected by the Federal Confidentiality of Alcohol and Drug Abuse Patient Records regulations: The Federal rules restrict any use of the information to criminally investigate or prosecute any alcohol or drug abuse patient.[facility] HospitalIn the event this information is protected by the Federal Confidentiality of Alcohol and Drug Abuse Patient Records regulations: The Federal rules restrict any use of the information to criminally investigate or prosecute any alcohol or drug abuse patient.[facility] HospitalIn the event this information is protected by the Federal Confidentiality of Alcohol and Drug Abuse Patient Records regulations: The Federal rules restrict any use of the information to criminally investigate or prosecute any alcohol or drug abuse patient.[facility] HospitalIn the event this information is protected by the Federal Confidentiality of Alcohol and Drug Abuse Patient Records regulations: The Federal rules restrict any use of the information to criminally investigate or prosecute any alcohol or drug abuse patient.[facility] HospitalIn the event this information is protected by the Federal Confidentiality of Alcohol and Drug Abuse Patient Records regulations: The Federal rules restrict any use of the information to criminally investigate or prosecute any alcohol or drug abuse patient.[facility] HospitalIn the event this information is protected by the Federal Confidentiality of Alcohol and Drug Abuse Patient Records regulations: The Federal rules restrict any use of the information to criminally investigate or prosecute any alcohol or drug abuse patient.[facility] HospitalIn the event this information is protected by the Federal Confidentiality of Alcohol and Drug Abuse Patient Records regulations: The Federal rules restrict any use of the information to criminally investigate or prosecute any alcohol or drug abuse patient.[facility] HospitalIn the event this information is protected by the Federal Confidentiality of Alcohol and Drug Abuse Patient Records regulations: The Federal rules restrict any use of the information to criminally investigate or prosecute any alcohol or drug abuse patient.[facility] HospitalIn the event this information is protected by the Federal Confidentiality of Alcohol and Drug Abuse Patient Records regulations: The Federal rules restrict any use of the information to criminally investigate or prosecute any alcohol or drug abuse patient.[facility] HospitalIn the event this information is protected by the Federal Confidentiality of Alcohol and Drug Abuse Patient Records regulations: The Federal rules restrict any use of the information to criminally investigate or prosecute any alcohol or drug abuse patient.[facility] HospitalIn the event this information is protected by the Federal Confidentiality of Alcohol and Drug Abuse Patient Records regulations: The Federal rules restrict any use of the information to criminally investigate or prosecute any alcohol or drug abuse patient.[facility] HospitalIn the event this information is protected by the Federal Confidentiality of Alcohol and Drug Abuse Patient Records regulations: The Federal rules restrict any use of the information to criminally investigate or prosecute any alcohol or drug abuse patient.[facility] HospitalIn the event this information is protected by the Federal Confidentiality of Alcohol and Drug Abuse Patient Records regulations: The Federal rules restrict any use of the information to criminally investigate or prosecute any alcohol or drug abuse patient.[facility] HospitalIn the event this information is protected by the Federal Confidentiality of Alcohol and Drug Abuse Patient Records regulations: The Federal rules restrict any use of the information to criminally investigate or prosecute any alcohol or drug abuse patient.[facility] HospitalIn the event this information is protected by the Federal Confidentiality of Alcohol and Drug Abuse Patient Records regulations: The Federal rules restrict any use of the information to criminally investigate or prosecute any alcohol or drug abuse patient.[facility] HospitalIn the event this information is protected by the Federal Confidentiality of Alcohol and Drug Abuse Patient Records regulations: The Federal rules restrict any use of the information to criminally investigate or prosecute any alcohol or drug abuse patient.[facility] HospitalIn the event this information is protected by the Federal Confidentiality of Alcohol and Drug Abuse Patient Records regulations: The Federal rules restrict any use of the information to criminally investigate or prosecute any alcohol or drug abuse patient.[facility] HospitalIn the event this information is protected by the Federal Confidentiality of Alcohol and Drug Abuse Patient Records regulations: The Federal rules restrict any use of the information to criminally investigate or prosecute any alcohol or drug abuse patient.[facility] HospitalIn the event this information is protected by the Federal Confidentiality of Alcohol and Drug Abuse Patient Records regulations: The Federal rules restrict any use of the information to criminally investigate or prosecute any alcohol or drug abuse patient.[facility] HospitalIn the event this information is protected by the Federal Confidentiality of Alcohol and Drug Abuse Patient Records regulations: The Federal rules restrict any use of the information to criminally investigate or prosecute any alcohol or drug abuse patient.[facility] HospitalIn the event this information is protected by the Federal Confidentiality of Alcohol and Drug Abuse Patient Records regulations: The Federal rules restrict any use of the information to criminally investigate or prosecute any alcohol or drug abuse patient.[facility] HospitalIn the event this information is protected by the Federal Confidentiality of Alcohol and Drug Abuse Patient Records regulations: The Federal rules restrict any use of the information to criminally investigate or prosecute any alcohol or drug abuse patient.[facility] HospitalIn the event this information is protected by the Federal Confidentiality of Alcohol and Drug Abuse Patient Records regulations: The Federal rules restrict any use of the information to criminally investigate or prosecute any alcohol or drug abuse patient.[facility] HospitalIn the event this information is protected by the Federal Confidentiality of Alcohol and Drug Abuse Patient Records regulations: The Federal rules restrict any use of the information to criminally investigate or prosecute any alcohol or drug abuse patient.[facility] HospitalIn the event this information is protected by the Federal Confidentiality of Alcohol and Drug Abuse Patient Records regulations: The Federal rules restrict any use of the information to criminally investigate or prosecute any alcohol or drug abuse patient.[facility] HospitalIn the event this information is protected by the Federal Confidentiality of Alcohol and Drug Abuse Patient Records regulations: The Federal rules restrict any use of the information to criminally investigate or prosecute any alcohol or drug abuse patient.[facility] HospitalIn the event this information is protected by the Federal Confidentiality of Alcohol and Drug Abuse Patient Records regulations: The Federal rules restrict any use of the information to criminally investigate or prosecute any alcohol or drug abuse patient.[facility] HospitalIn the event this information is protected by the Federal Confidentiality of Alcohol and Drug Abuse Patient Records regulations: The Federal rules restrict any use of the information to criminally investigate or prosecute any alcohol or drug abuse patient.[facility] HospitalIn the event this information is protected by the Federal Confidentiality of Alcohol and Drug Abuse Patient Records regulations: The Federal rules restrict any use of the information to criminally investigate or prosecute any alcohol or drug abuse patient.[facility] HospitalIn the event this information is protected by the Federal Confidentiality of Alcohol and Drug Abuse Patient Records regulations: The Federal rules restrict any use of the information to criminally investigate or prosecute any alcohol or drug abuse patient.[facility] HospitalIn the event this information is protected by the Federal Confidentiality of Alcohol and Drug Abuse Patient Records regulations: The Federal rules restrict any use of the information to criminally investigate or prosecute any alcohol or drug abuse patient.[facility] HospitalIn the event this information is protected by the Federal Confidentiality of Alcohol and Drug Abuse Patient Records regulations: The Federal rules restrict any use of the information to criminally investigate or prosecute any alcohol or drug abuse patient.[facility] HospitalIn the event this information is protected by the Federal Confidentiality of Alcohol and Drug Abuse Patient Records regulations: The Federal rules restrict any use of the information to criminally investigate or prosecute any alcohol or drug abuse patient.[facility] HospitalIn the event this information is protected by the Federal Confidentiality of Alcohol and Drug Abuse Patient Records regulations: The Federal rules restrict any use of the information to criminally investigate or prosecute any alcohol or drug abuse patient.[facility] HospitalIn the event this information is protected by the Federal Confidentiality of Alcohol and Drug Abuse Patient Records regulations: The Federal rules restrict any use of the information to criminally investigate or prosecute any alcohol or drug abuse patient.[facility] HospitalIn the event this information is protected by the Federal Confidentiality of Alcohol and Drug Abuse Patient Records regulations: The Federal rules restrict any use of the information to criminally investigate or prosecute any alcohol or drug abuse patient.[facility] HospitalIn the event this information is protected by the Federal Confidentiality of Alcohol and Drug Abuse Patient Records regulations: The Federal rules restrict any use of the information to criminally investigate or prosecute any alcohol or drug abuse patient.[facility] HospitalIn the event this information is protected by the Federal Confidentiality of Alcohol and Drug Abuse Patient Records regulations: The Federal rules restrict any use of the information to criminally investigate or prosecute any alcohol or drug abuse patient.[facility] HospitalIn the event this information is protected by the Federal Confidentiality of Alcohol and Drug Abuse Patient Records regulations: The Federal rules restrict any use of the information to criminally investigate or prosecute any alcohol or drug abuse patient.[facility] HospitalIn the event this information is protected [...] or prosecute any alcohol or drug abuse patient.[facility] HospitalIn the event this information is protected by the Federal Confidentiality of Alcohol and Drug Abuse Patient Records regulations: The Federal rules restrict any use of the information to criminally investigate or prosecute any alcohol or drug abuse patient.[facility] HospitalIn the event this information is protected by the Federal Confidentiality of Alcohol and Drug Abuse Patient Records regulations: The Federal rules restrict any use of the information to criminally investigate or prosecute any alcohol or drug abuse patient.[facility] HospitalIn the event this information is protected by the Federal Confidentiality of Alcohol and Drug Abuse Patient Records regulations: The Federal rules restrict any use of the information to criminally investigate or prosecute any alcohol or drug abuse patient.[facility] HospitalIn the event this information is protected by the Federal Confidentiality of Alcohol and Drug Abuse Patient Records regulations: The Federal rules restrict any use of the information to criminally investigate or prosecute any alcohol or drug abuse patient.[facility] HospitalIn the event this information is protected by the Federal Confidentiality of Alcohol and Drug Abuse Patient Records regulations: The Federal rules restrict any use of the information to criminally investigate or prosecute any alcohol or drug abuse patient.[facility] HospitalIn the event this information is protected by the Federal Confidentiality of Alcohol and Drug Abuse Patient Records regulations: The Federal rules restrict any use of the information to criminally investigate or prosecute any alcohol or drug abuse patient.[facility] HospitalIn the event this information is protected by the Federal Confidentiality of Alcohol and Drug Abuse Patient Records regulations: The Federal rules restrict any use of the information to criminally investigate or prosecute any alcohol or drug abuse patient.[facility] HospitalIn the event this information is protected by the Federal Confidentiality of Alcohol and Drug Abuse Patient Records regulations: The Federal rules restrict any use of the information to criminally investigate or prosecute any alcohol or drug abuse patient.[facility] HospitalIn the event this information is protected by the Federal Confidentiality of Alcohol and Drug Abuse Patient Records regulations: The Federal rules restrict any use of the information to criminally investigate or prosecute any alcohol or drug abuse patient.[facility] HospitalIn the event this information is protected by the Federal Confidentiality of Alcohol and Drug Abuse Patient Records regulations: The Federal rules restrict any use of the information to criminally investigate or prosecute any alcohol or drug abuse patient.[facility] HospitalIn the event this information is protected by the Federal Confidentiality of Alcohol and Drug Abuse Patient Records regulations: The Federal rules restrict any use of the information to criminally investigate or prosecute any alcohol or drug abuse patient.[facility] HospitalIn the event this information is protected by the Federal Confidentiality of Alcohol and Drug Abuse Patient Records regulations: The Federal rules restrict any use of the information to criminally investigate or prosecute any alcohol or drug abuse patient.[facility] HospitalIn the event this information is protected by the Federal Confidentiality of Alcohol and Drug Abuse Patient Records regulations: The Federal rules restrict any use of the information to criminally investigate or prosecute any alcohol or drug abuse patient.[facility] HospitalIn the event this information is protected by the Federal Confidentiality of Alcohol and Drug Abuse Patient Records regulations: The Federal rules restrict any use of the information to criminally investigate or prosecute any alcohol or drug abuse patient.[facility] HospitalIn the event this information is protected by the Federal Confidentiality of Alcohol and Drug Abuse Patient Records regulations: The Federal rules restrict any use of the information to criminally investigate or prosecute any alcohol or drug abuse patient.[facility] HospitalIn the event this information is protected by the Federal Confidentiality of Alcohol and Drug Abuse Patient Records regulations: The Federal rules restrict any use of the information to criminally investigate or prosecute any alcohol or drug abuse patient.[facility] HospitalIn the event this information is protected by the Federal Confidentiality of Alcohol and Drug Abuse Patient Records regulations: The Federal rules restrict any use of the information to criminally investigate or prosecute any alcohol or drug abuse patient.[facility] HospitalIn the event this information is protected by the Federal Confidentiality of Alcohol and Drug Abuse Patient Records regulations: The Federal rules restrict any use of the information to criminally investigate or prosecute any alcohol or drug abuse patient.[facility] HospitalIn the event this information is protected by the Federal Confidentiality of Alcohol and Drug Abuse Patient Records regulations: The Federal rules restrict any use of the information to criminally investigate or prosecute any alcohol or drug abuse patient.[facility] HospitalIn the event this information is protected by the Federal Confidentiality of Alcohol and Drug Abuse Patient Records regulations: The Federal rules restrict any use of the information to criminally investigate or prosecute any alcohol or drug abuse patient.[facility] HospitalIn the event this information is protected by the Federal Confidentiality of Alcohol and Drug Abuse Patient Records regulations: The Federal rules restrict any use of the information to criminally investigate or prosecute any alcohol or drug abuse patient.[facility] HospitalIn the event this information is protected by the Federal Confidentiality of Alcohol and Drug Abuse Patient Records regulations: The Federal rules restrict any use of the information to criminally investigate or prosecute any alcohol or drug abuse patient.[facility] HospitalIn the event this information is protected by the Federal Confidentiality of Alcohol and Drug Abuse Patient Records regulations: The Federal rules restrict any use of the information to criminally investigate or prosecute any alcohol or drug abuse patient.[facility] HospitalIn the event this information is protected by the Federal Confidentiality of Alcohol and Drug Abuse Patient Records regulations: The Federal rules restrict any use of the information to criminally investigate or prosecute any alcohol or drug abuse patient.[facility] HospitalIn the event this information is protected by the Federal Confidentiality of Alcohol and Drug Abuse Patient Records regulations: The Federal rules restrict any use of the information to criminally investigate or prosecute any alcohol or drug abuse patient.[facility] HospitalIn the event this information is protected by the Federal Confidentiality of Alcohol and Drug Abuse Patient Records regulations: The Federal rules restrict any use of the information to criminally investigate or prosecute any alcohol or drug abuse patient.[facility] HospitalIn the event this information is protected by the Federal Confidentiality of Alcohol and Drug Abuse Patient Records regulations: The Federal rules restrict any use of the information to criminally investigate or prosecute any alcohol or drug abuse patient.[facility] HospitalIn the event this information is protected by the Federal Confidentiality of Alcohol and Drug Abuse Patient Records regulations: The Federal rules restrict any use of the information to criminally investigate or prosecute any alcohol or drug abuse patient.[facility] HospitalIn the event this information is protected by the Federal Confidentiality of Alcohol and Drug Abuse Patient Records regulations: The Federal rules restrict any use of the information to criminally investigate or prosecute any alcohol or drug abuse patient.[facility] HospitalIn the event this information is protected by the Federal Confidentiality of Alcohol and Drug Abuse Patient Records regulations: The Federal rules restrict any use of the information to criminally investigate or prosecute any alcohol or drug abuse patient.[facility] HospitalIn the event this information is protected by the Federal Confidentiality of Alcohol and Drug Abuse Patient Records regulations: The Federal rules restrict any use of the information to criminally investigate or prosecute any alcohol or drug abuse patient.[facility] HospitalIn the event this information is protected by the Federal Confidentiality of Alcohol and Drug Abuse Patient Records regulations: The Federal rules restrict any use of the information to criminally investigate or prosecute any alcohol or drug abuse patient.[facility] HospitalIn the event this information is protected by the Federal Confidentiality of Alcohol and Drug Abuse Patient Records regulations: The Federal rules restrict any use of the information to criminally investigate or prosecute any alcohol or drug abuse patient.[facility] HospitalIn the event this information is protected by the Federal Confidentiality of Alcohol and Drug Abuse Patient Records regulations: The Federal rules restrict any use of the information to criminally investigate or prosecute any alcohol or drug abuse patient.[facility] HospitalIn the event this information is protected by the Federal Confidentiality of Alcohol and Drug Abuse Patient Records regulations: The Federal rules restrict any use of the information to criminally investigate or prosecute any alcohol or drug abuse patient.[facility] HospitalIn the event this information is protected by the Federal Confidentiality of Alcohol and Drug Abuse Patient Records regulations: The Federal rules restrict any use of the information to criminally investigate or prosecute any alcohol or drug abuse patient.[facility] HospitalIn the event this information is protected by the Federal Confidentiality of Alcohol and Drug Abuse Patient Records regulations: The Federal rules restrict any use of the information to criminally investigate or prosecute any alcohol or drug abuse patient.[facility] HospitalIn the event this information is protected by the Federal Confidentiality of Alcohol and Drug Abuse Patient Records regulations: The Federal rules restrict any use of the information to criminally investigate or prosecute any alcohol or drug abuse patient.[facility] HospitalIn the event this information is protected by the Federal Confidentiality of Alcohol and Drug Abuse Patient Records regulations: The Federal rules restrict any use of the information to criminally investigate or prosecute any alcohol or drug abuse patient.[facility] HospitalIn the event this information is protected by the Federal Confidentiality of Alcohol and Drug Abuse Patient Records regulations: The Federal rules restrict any use of the information to criminally investigate or prosecute any alcohol or drug abuse patient.[facility] HospitalIn the event this information is protected by the Federal Confidentiality of Alcohol and Drug Abuse Patient Records regulations: The Federal rules restrict any use of the information to criminally investigate or prosecute any alcohol or drug abuse patient.[facility] HospitalIn the event this information is protected by the Federal Confidentiality of Alcohol and Drug Abuse Patient Records regulations: The Federal rules restrict any use of the information to criminally investigate or prosecute any alcohol or drug abuse patient.[facility] HospitalIn the event this information is protected by the Federal Confidentiality of Alcohol and Drug Abuse Patient Records regulations: The Federal rules restrict any use of the information to criminally investigate or prosecute any alcohol or drug abuse patient.[facility] HospitalIn the event this information is protected by the Federal Confidentiality of Alcohol and Drug Abuse Patient Records regulations: The Federal rules restrict any use of the information to criminally investigate or prosecute any alcohol or drug abuse patient.[facility] HospitalIn the event this information is protected by the Federal Confidentiality of Alcohol and Drug Abuse Patient Records regulations: The Federal rules restrict any use of the information to criminally investigate or prosecute any alcohol or drug abuse patient.[facility] HospitalIn the event this information is protected by the Federal Confidentiality of Alcohol and Drug Abuse Patient Records regulations: The Federal rules restrict any use of the information to criminally investigate or prosecute any alcohol or drug abuse patient.[facility] HospitalIn the event this information is protected by the Federal Confidentiality of Alcohol and Drug Abuse Patient Records regulations: The Federal rules restrict any use of the information to criminally investigate or prosecute any alcohol or drug abuse patient.[facility] HospitalIn the event this information is protected by the Federal Confidentiality of Alcohol and Drug Abuse Patient Records regulations: The Federal rules restrict any use of the information to criminally investigate or prosecute any alcohol or drug abuse patient.[facility] HospitalIn the event this information is protected [...] or prosecute any alcohol or drug abuse patient.[facility] HospitalIn the event this information is protected by the Federal Confidentiality of Alcohol and Drug Abuse Patient Records regulations: The Federal rules restrict any use of the information to criminally investigate or prosecute any alcohol or drug abuse patient.[facility] HospitalIn the event this information is protected by the Federal Confidentiality of Alcohol and Drug Abuse Patient Records regulations: The Federal rules restrict any use of the information to criminally investigate or prosecute any alcohol or drug abuse patient.[facility] HospitalIn the event this information is protected by the Federal Confidentiality of Alcohol and Drug Abuse Patient Records regulations: The Federal rules restrict any use of the information to criminally investigate or prosecute any alcohol or drug abuse patient.[facility] HospitalIn the event this information is protected by the Federal Confidentiality of Alcohol and Drug Abuse Patient Records regulations: The Federal rules restrict any use of the information to criminally investigate or prosecute any alcohol or drug abuse patient.[facility] HospitalIn the event this information is protected by the Federal Confidentiality of Alcohol and Drug Abuse Patient Records regulations: The Federal rules restrict any use of the information to criminally investigate or prosecute any alcohol or drug abuse patient.[facility] HospitalIn the event this information is protected by the Federal Confidentiality of Alcohol and Drug Abuse Patient Records regulations: The Federal rules restrict any use of the information to criminally investigate or prosecute any alcohol or drug abuse patient.[facility] HospitalIn the event this information is protected by the Federal Confidentiality of Alcohol and Drug Abuse Patient Records regulations: The Federal rules restrict any use of the information to criminally investigate or prosecute any alcohol or drug abuse patient.[facility] HospitalIn the event this information is protected by the Federal Confidentiality of Alcohol and Drug Abuse Patient Records regulations: The Federal rules restrict any use of the information to criminally investigate or prosecute any alcohol or drug abuse patient.[facility] HospitalIn the event this information is protected by the Federal Confidentiality of Alcohol and Drug Abuse Patient Records regulations: The Federal rules restrict any use of the information to criminally investigate or prosecute any alcohol or drug abuse patient.[facility] HospitalIn the event this information is protected by the Federal Confidentiality of Alcohol and Drug Abuse Patient Records regulations: The Federal rules restrict any use of the information to criminally investigate or prosecute any alcohol or drug abuse patient.[facility] HospitalIn the event this information is protected by the Federal Confidentiality of Alcohol and Drug Abuse Patient Records regulations: The Federal rules restrict any use of the information to criminally investigate or prosecute any alcohol or drug abuse patient.[facility] HospitalIn the event this information is protected by the Federal Confidentiality of Alcohol and Drug Abuse Patient Records regulations: The Federal rules restrict any use of the information to criminally investigate or prosecute any alcohol or drug abuse patient.[facility] HospitalIn the event this information is protected by the Federal Confidentiality of Alcohol and Drug Abuse Patient Records regulations: The Federal rules restrict any use of the information to criminally investigate or prosecute any alcohol or drug abuse patient.[facility] HospitalIn the event this information is protected by the Federal Confidentiality of Alcohol and Drug Abuse Patient Records regulations: The Federal rules restrict any use of the information to criminally investigate or prosecute any alcohol or drug abuse patient.[facility] HospitalIn the event this information is protected by the Federal Confidentiality of Alcohol and Drug Abuse Patient Records regulations: The Federal rules restrict any use of the information to criminally investigate or prosecute any alcohol or drug abuse patient.[facility] HospitalIn the event this information is protected by the Federal Confidentiality of Alcohol and Drug Abuse Patient Records regulations: The Federal rules restrict any use of the information to criminally investigate or prosecute any alcohol or drug abuse patient.[facility] HospitalIn the event this information is protected by the Federal Confidentiality of Alcohol and Drug Abuse Patient Records regulations: The Federal rules restrict any use of the information to criminally investigate or prosecute any alcohol or drug abuse patient.[facility] HospitalIn the event this information is protected by the Federal Confidentiality of Alcohol and Drug Abuse Patient Records regulations: The Federal rules restrict any use of the information to criminally investigate or prosecute any alcohol or drug abuse patient.[facility] HospitalIn the event this information is protected by the Federal Confidentiality of Alcohol and Drug Abuse Patient Records regulations: The Federal rules restrict any use of the information to criminally investigate or prosecute any alcohol or drug abuse patient.[facility] HospitalIn the event this information is protected by the Federal Confidentiality of Alcohol and Drug Abuse Patient Records regulations: The Federal rules restrict any use of the information to criminally investigate or prosecute any alcohol or drug abuse patient.[facility] HospitalIn the event this information is protected by the Federal Confidentiality of Alcohol and Drug Abuse Patient Records regulations: The Federal rules restrict any use of the information to criminally investigate or prosecute any alcohol or drug abuse patient.[facility] HospitalIn the event this information is protected by the Federal Confidentiality of Alcohol and Drug Abuse Patient Records regulations: The Federal rules restrict any use of the information to criminally investigate or prosecute any alcohol or drug abuse patient.[facility] HospitalIn the event this information is protected by the Federal Confidentiality of Alcohol and Drug Abuse Patient Records regulations: The Federal rules restrict any use of the information to criminally investigate or prosecute any alcohol or drug abuse patient.[facility] HospitalIn the event this information is protected by the Federal Confidentiality of Alcohol and Drug Abuse Patient Records regulations: The Federal rules restrict any use of the information to criminally investigate or prosecute any alcohol or drug abuse patient.[facility] HospitalIn the event this information is protected by the Federal Confidentiality of Alcohol and Drug Abuse Patient Records regulations: The Federal rules restrict any use of the information to criminally investigate or prosecute any alcohol or drug abuse patient.[facility] HospitalIn the event this information is protected by the Federal Confidentiality of Alcohol and Drug Abuse Patient Records regulations: The Federal rules restrict any use of the information to criminally investigate or prosecute any alcohol or drug abuse patient.[facility] HospitalIn the event this information is protected by the Federal Confidentiality of Alcohol and Drug Abuse Patient Records regulations: The Federal rules restrict any use of the information to criminally investigate or prosecute any alcohol or drug abuse patient.[facility] HospitalIn the event this information is protected by the Federal Confidentiality of Alcohol and Drug Abuse Patient Records regulations: The Federal rules restrict any use of the information to criminally investigate or prosecute any alcohol or drug abuse patient.[facility] HospitalIn the event this information is protected by the Federal Confidentiality of Alcohol and Drug Abuse Patient Records regulations: The Federal rules restrict any use of the information to criminally investigate or prosecute any alcohol or drug abuse patient.[facility] HospitalIn the event this information is protected by the Federal Confidentiality of Alcohol and Drug Abuse Patient Records regulations: The Federal rules restrict any use of the information to criminally investigate or prosecute any alcohol or drug abuse patient.[facility] HospitalIn the event this information is protected by the Federal Confidentiality of Alcohol and Drug Abuse Patient Records regulations: The Federal rules restrict any use of the information to criminally investigate or prosecute any alcohol or drug abuse patient.[facility] HospitalIn the event this information is protected by the Federal Confidentiality of Alcohol and Drug Abuse Patient Records regulations: The Federal rules restrict any use of the information to criminally investigate or prosecute any alcohol or drug abuse patient.[facility] HospitalIn the event this information is protected by the Federal Confidentiality of Alcohol and Drug Abuse Patient Records regulations: The Federal rules restrict any use of the information to criminally investigate or prosecute any alcohol or drug abuse patient.[facility] HospitalIn the event this information is protected by the Federal Confidentiality of Alcohol and Drug Abuse Patient Records regulations: The Federal rules restrict any use of the information to criminally investigate or prosecute any alcohol or drug abuse patient.[facility] HospitalIn the event this information is protected by the Federal Confidentiality of Alcohol and Drug Abuse Patient Records regulations: The Federal rules restrict any use of the information to criminally investigate or prosecute any alcohol or drug abuse patient.[facility] HospitalIn the event this information is protected by the Federal Confidentiality of Alcohol and Drug Abuse Patient Records regulations: The Federal rules restrict any use of the information to criminally investigate or prosecute any alcohol or drug abuse patient.[facility] HospitalIn the event this information is protected by the Federal Confidentiality of Alcohol and Drug Abuse Patient Records regulations: The Federal rules restrict any use of the information to criminally investigate or prosecute any alcohol or drug abuse patient.[facility] HospitalIn the event this information is protected by the Federal Confidentiality of Alcohol and Drug Abuse Patient Records regulations: The Federal rules restrict any use of the information to criminally investigate or prosecute any alcohol or drug abuse patient.[facility] HospitalIn the event this information is protected by the Federal Confidentiality of Alcohol and Drug Abuse Patient Records regulations: The Federal rules restrict any use of the information to criminally investigate or prosecute any alcohol or drug abuse patient.[facility] HospitalIn the event this information is protected by the Federal Confidentiality of Alcohol and Drug Abuse Patient Records regulations: The Federal rules restrict any use of the information to criminally investigate or prosecute any alcohol or drug abuse patient.[facility] HospitalIn the event this information is protected by the Federal Confidentiality of Alcohol and Drug Abuse Patient Records regulations: The Federal rules restrict any use of the information to criminally investigate or prosecute any alcohol or drug abuse patient.[facility] HospitalIn the event this information is protected by the Federal Confidentiality of Alcohol and Drug Abuse Patient Records regulations: The Federal rules restrict any use of the information to criminally investigate or prosecute any alcohol or drug abuse patient.[facility] HospitalIn the event this information is protected by the Federal Confidentiality of Alcohol and Drug Abuse Patient Records regulations: The Federal rules restrict any use of the information to criminally investigate or prosecute any alcohol or drug abuse patient.[facility] HospitalIn the event this information is protected by the Federal Confidentiality of Alcohol and Drug Abuse Patient Records regulations: The Federal rules restrict any use of the information to criminally investigate or prosecute any alcohol or drug abuse patient.[facility] HospitalIn the event this information is protected by the Federal Confidentiality of Alcohol and Drug Abuse Patient Records regulations: The Federal rules restrict any use of the information to criminally investigate or prosecute any alcohol or drug abuse patient.[facility] HospitalIn the event this information is protected by the Federal Confidentiality of Alcohol and Drug Abuse Patient Records regulations: The Federal rules restrict any use of the information to criminally investigate or prosecute any alcohol or drug abuse patient.[facility] HospitalIn the event this information is protected by the Federal Confidentiality of Alcohol and Drug Abuse Patient Records regulations: The Federal rules restrict any use of the information to criminally investigate or prosecute any alcohol or drug abuse patient.[facility] HospitalIn the event this information is protected by the Federal Confidentiality of Alcohol and Drug Abuse Patient Records regulations: The Federal rules restrict any use of the information to criminally investigate or prosecute any alcohol or drug abuse patient.[facility] HospitalIn the event this information is protected [...] or prosecute any alcohol or drug abuse patient.[facility] HospitalIn the event this information is protected by the Federal Confidentiality of Alcohol and Drug Abuse Patient Records regulations: The Federal rules restrict any use of the information to criminally investigate or prosecute any alcohol or drug abuse patient.[facility] HospitalIn the event this information is protected by the Federal Confidentiality of Alcohol and Drug Abuse Patient Records regulations: The Federal rules restrict any use of the information to criminally investigate or prosecute any alcohol or drug abuse patient.[facility] HospitalIn the event this information is protected by the Federal Confidentiality of Alcohol and Drug Abuse Patient Records regulations: The Federal rules restrict any use of the information to criminally investigate or prosecute any alcohol or drug abuse patient.[facility] HospitalIn the event this information is protected by the Federal Confidentiality of Alcohol and Drug Abuse Patient Records regulations: The Federal rules restrict any use of the information to criminally investigate or prosecute any alcohol or drug abuse patient.[facility] HospitalIn the event this information is protected by the Federal Confidentiality of Alcohol and Drug Abuse Patient Records regulations: The Federal rules restrict any use of the information to criminally investigate or prosecute any alcohol or drug abuse patient.[facility] HospitalIn the event this information is protected by the Federal Confidentiality of Alcohol and Drug Abuse Patient Records regulations: The Federal rules restrict any use of the information to criminally investigate or prosecute any alcohol or drug abuse patient.[facility] HospitalIn the event this information is protected by the Federal Confidentiality of Alcohol and Drug Abuse Patient Records regulations: The Federal rules restrict any use of the information to criminally investigate or prosecute any alcohol or drug abuse patient.[facility] HospitalIn the event this information is protected by the Federal Confidentiality of Alcohol and Drug Abuse Patient Records regulations: The Federal rules restrict any use of the information to criminally investigate or prosecute any alcohol or drug abuse patient.[facility] HospitalIn the event this information is protected by the Federal Confidentiality of Alcohol and Drug Abuse Patient Records regulations: The Federal rules restrict any use of the information to criminally investigate or prosecute any alcohol or drug abuse patient.[facility] HospitalIn the event this information is protected by the Federal Confidentiality of Alcohol and Drug Abuse Patient Records regulations: The Federal rules restrict any use of the information to criminally investigate or prosecute any alcohol or drug abuse patient.[facility] HospitalIn the event this information is protected by the Federal Confidentiality of Alcohol and Drug Abuse Patient Records regulations: The Federal rules restrict any use of the information to criminally investigate or prosecute any alcohol or drug abuse patient.[facility] HospitalIn the event this information is protected by the Federal Confidentiality of Alcohol and Drug Abuse Patient Records regulations: The Federal rules restrict any use of the information to criminally investigate or prosecute any alcohol or drug abuse patient.[facility] HospitalIn the event this information is protected by the Federal Confidentiality of Alcohol and Drug Abuse Patient Records regulations: The Federal rules restrict any use of the information to criminally investigate or prosecute any alcohol or drug abuse patient.[facility] HospitalIn the event this information is protected by the Federal Confidentiality of Alcohol and Drug Abuse Patient Records regulations: The Federal rules restrict any use of the information to criminally investigate or prosecute any alcohol or drug abuse patient.[facility] HospitalIn the event this information is protected by the Federal Confidentiality of Alcohol and Drug Abuse Patient Records regulations: The Federal rules restrict any use of the information to criminally investigate or prosecute any alcohol or drug abuse patient.[facility] HospitalIn the event this information is protected by the Federal Confidentiality of Alcohol and Drug Abuse Patient Records regulations: The Federal rules restrict any use of the information to criminally investigate or prosecute any alcohol or drug abuse patient.[facility] HospitalIn the event this information is protected by the Federal Confidentiality of Alcohol and Drug Abuse Patient Records regulations: The Federal rules restrict any use of the information to criminally investigate or prosecute any alcohol or drug abuse patient.[facility] HospitalIn the event this information is protected by the Federal Confidentiality of Alcohol and Drug Abuse Patient Records regulations: The Federal rules restrict any use of the information to criminally investigate or prosecute any alcohol or drug abuse patient.[facility] HospitalIn the event this information is protected by the Federal Confidentiality of Alcohol and Drug Abuse Patient Records regulations: The Federal rules restrict any use of the information to criminally investigate or prosecute any alcohol or drug abuse patient.[facility] HospitalIn the event this information is protected by the Federal Confidentiality of Alcohol and Drug Abuse Patient Records regulations: The Federal rules restrict any use of the information to criminally investigate or prosecute any alcohol or drug abuse patient.[facility] HospitalIn the event this information is protected by the Federal Confidentiality of Alcohol and Drug Abuse Patient Records regulations: The Federal rules restrict any use of the information to criminally investigate or prosecute any alcohol or drug abuse patient.[facility] HospitalIn the event this information is protected by the Federal Confidentiality of Alcohol and Drug Abuse Patient Records regulations: The Federal rules restrict any use of the information to criminally investigate or prosecute any alcohol or drug abuse patient.[facility] HospitalIn the event this information is protected by the Federal Confidentiality of Alcohol and Drug Abuse Patient Records regulations: The Federal rules restrict any use of the information to criminally investigate or prosecute any alcohol or drug abuse patient.[facility] HospitalIn the event this information is protected by the Federal Confidentiality of Alcohol and Drug Abuse Patient Records regulations: The Federal rules restrict any use of the information to criminally investigate or prosecute any alcohol or drug abuse patient.[facility] HospitalIn the event this information is protected by the Federal Confidentiality of Alcohol and Drug Abuse Patient Records regulations: The Federal rules restrict any use of the information to criminally investigate or prosecute any alcohol or drug abuse patient.[facility] HospitalIn the event this information is protected by the Federal Confidentiality of Alcohol and Drug Abuse Patient Records regulations: The Federal rules restrict any use of the information to criminally investigate or prosecute any alcohol or drug abuse patient.[facility] HospitalIn the event this information is protected by the Federal Confidentiality of Alcohol and Drug Abuse Patient Records regulations: The Federal rules restrict any use of the information to criminally investigate or prosecute any alcohol or drug abuse patient.[facility] HospitalIn the event this information is protected by the Federal Confidentiality of Alcohol and Drug Abuse Patient Records regulations: The Federal rules restrict any use of the information to criminally investigate or prosecute any alcohol or drug abuse patient.[facility] HospitalIn the event this information is protected by the Federal Confidentiality of Alcohol and Drug Abuse Patient Records regulations: The Federal rules restrict any use of the information to criminally investigate or prosecute any alcohol or drug abuse patient.[facility] HospitalIn the event this information is protected by the Federal Confidentiality of Alcohol and Drug Abuse Patient Records regulations: The Federal rules restrict any use of the information to criminally investigate or prosecute any alcohol or drug abuse patient.[facility] HospitalIn the event this information is protected by the Federal Confidentiality of Alcohol and Drug Abuse Patient Records regulations: The Federal rules restrict any use of the information to criminally investigate or prosecute any alcohol or drug abuse patient.[facility] HospitalIn the event this information is protected by the Federal Confidentiality of Alcohol and Drug Abuse Patient Records regulations: The Federal rules restrict any use of the information to criminally investigate or prosecute any alcohol or drug abuse patient.[facility] HospitalIn the event this information is protected by the Federal Confidentiality of Alcohol and Drug Abuse Patient Records regulations: The Federal rules restrict any use of the information to criminally investigate or prosecute any alcohol or drug abuse patient.[facility] Reason for Visit (unrecogniz ed section [...] CONSULT TO PHYSICAL THERAPY (AG) Belgica Herrera [address] [place] [address] [facility] [address] [place] [address] Reason Comments Patient Update Reason Comments Consult CONSULTS TO ENT AND OPTHALMOLOGY Status Reason Specialty Diagnoses / Procedures Referred By Contact Referred To Contact Authorized Marine Underwriter / PSYCHIATRY Diagnoses Other specified anxiety disorders My Chart Zoom New pt appt. 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 Care 07/22/2021 PCC f/u Reason Onset Date Comments Sporting Goods Sales Manager Chronic Care 07/23/2021 Refill Reason Onset Date Comments [employer]ing Goods Sales Manager Chronic Care 08/05/2021 PCC f/u Specialty Diagnoses / Procedures Referred By Contac t Referred To Contact MR IMAGING Diagnoses Malignant neoplasm of rectosigmoid junction (HCC) Procedures MRI PELVIS WO/W IVCON MRI PELVIS W/WO CONTRAST Artem Ahmadi MD [address] [facility] [address] [place] [address] Mr Imaging Referral ID Status Reason Start Date Expiration Date V isits Requested Visits Authorized Closed Auto-Generate d Referral 06/10/2021 01/10/2022 1 1 Reason Comments Follow Up mri results and diab etic Reason Onset Date Comments Sporting Goods Sales Manager Chronic Care 09/06/2021 PCC f/u Reason Onset Date Comments Transition Of Care 09/08/2021 ED D/C 09/07/21 Sporting Goods Sales Manager - Patient Initiated 11/2021 Received call from pt Reason Onset Date Comments Sporting [employer]s Sales Manager Chronic Care 09/17/2021 PCC f/u Reason Comments Internal Referrals/resources Ophthalmolo gy Reason Comments ER F/U boil on the neck Reason Comments Internal Referrals/resources Nephrology Reason Comments Two Week Follow Up Reason Comments Schedule Surgery Reason Comments Follow Up Phone Call called pt mailbox f ull mailed letter Reason Comments Prostate Problem BPH Reason Onset Date Comments [employer]s Sales Manager Chronic Care 11/01/2021 PCC f/u Reason Comments Follow Up Reason Comments Schedule Surgery Phaco Right Eye Reason Comments Diabetes Reason Comments Letter Reason Onset Date Comments Sporting Goods Sales Manager Chronic Care 12/03/2021 PCC f/u Reason Onset Date Comments Sporting Goods Sales Manager Chronic Care 12/28/2021 PCC f/u Reason Comments Hypertension Reason Onset Date Comments Sporting Goods Sales Manager Chronic Care 01/07/2022 PCC f/u Reason Comments Appointment Reason Comments Consult Reason Onset Date Comments Psychiatric Problem 01/17/2022 Reason Onset Date Comments Sporting Goods Sales Manager Hospital Follow Up 01/01 Hospital admit - [facility] Reason Onset Date Comments Behavioral Problem 01/19/2022 Reason Comments Appointment A-scan reminder Surgery Cancelled Per Patient Reason Onset Date Comments Transition Of Care 01/28/2022 CC Zoroastrian D /C to SNF 01/27/22 Reason Onset Date Comments Transition Of Care 02/21/2022 SNF status - SNF D/C 02/15/22 Sporting Goods Sales Manager Chronic Care 02/21/2022 PCC f/u Reason Comments No Show Reason Comments Hypertension Pt wants to discuss PET scan to see why his body is in so much brooks Reason Onset Date Comments Sporting Goods Sales Manager Chronic Care 03/11/2022 PCC f/u Transition Of Care 03/11/2022 TCM f/u Reason Onset Date Comments Transition Of Care 03/17/2022 TCM f/u [employer]ing Goods Sales Manager Chronic Care 03/17/2022 PCC f/u Reason Onset Date Comments Transition Of Care 04/05/2022 AG D/C Reason Comments Ambulatory Social Work Community resourc es Reason Onset Date Comments Sporting Goods Sales Manager Chronic Care 04/21/2022 PCC f/u Transition Of Care 04/21/2022 TCM f/u Reason Onset Date Comments Sporting Goods Sales Manager Chronic Care 04/26/2022 PCC f/u Transition Of Care 04/26/2022 TCM f/u Reason Comments eyeglass perscription Reason Onset Date Comments Sporting [employer]s Sales Manager Chronic Care 05/11/2022 PCC f/u Reason Comments [...] INJECT HIP LEFT [facility] [address] [place] [address] Referral ID Status Reason Start Date Expiration Date Visits Re quested Visits Authorized [id number] 1 1 Specialty Diagnoses / Procedures Referred By Vadim wiseman Referred To Contact MR IMAGING Diagnoses Pain in hip Chronic left hip pain Procedures MRI ARTHROGRAM HIP LEFT MRI ANY JT LOWER EXTREM W/CONTRAST MATERIAL Binh Lake R, DO [address] [place] [address] Mr Imaging Referral ID Status Reason Start Date Expiration Date V isits Requested Visits Authorized [id number] Closed Auto-Generate d Referral 07/01/2022 07/31/2023 1 1 Reason Comments Established Patient Reason Comments Post-op (Ophthalmology) Right Eye Reason Comments Established Patient mri Follow Up mri Pain mri Reason Comments Hospital Follow Up Vomiting and dehydra kurt Reason Comments Consult Cardio / [place] / Nep hro Reason Onset Date Comments Sporting Goods Sales Manager Chronic Care 09/29/2022 PCC f/u Transition Of Care 09/29/2022 TCM f/u Reason Onset Date Comments Transition Of Care 10/03/2022 TCM f/u Sporting Goods Sales Manager Chronic Care 10/03/2022 PCC f/u Reason Comments New Reason Onset Date Comments Sporting Goods Sales Manager Chronic Care 10/12/2022 PCC f/u Transition Of Care 10/12/2022 TCM f/u Reason Comments New Patient Evaluation Ischemia Reason Comments Patient Question Reason Onset Date Comments Sporting Goods Sales Manager Chronic Care 11/01/2022 PCC f/u Transition Of Care 11/01/2022 TCM f/u Reason Comments Results Surgical pathology Reason Comments Benign Prostatic Hypertrophy Nocturia Reason Comments Consult Endocrinology Reason Comments Consult Dermatology Reason Comments Results Abcess on right unde rarm Reason Comments Internal Referrals/resources Neurology Reason Comments Appointment New patient Referral Reason Comments Sporting Goods Sales Manager Chronic Care Pt feels sick Reason Onset Date Comments Sporting Goods Sales Manager Chronic Care 11/24/2022 PCC f/u Reason Comments Consult Pain Management Reason Comments Medication Follow-up Reason Comments Established Patient Follow Up Pain Reason Onset Date Comments Sporting Goods Sales Manager Chronic Care 01/27/2023 PCC f/u Reason Onset Date Comments Sporting Goods Sales Manager Chronic Care 05/19/2023 PCC f/u Reason Onset Date Comments Sporting Goods Sales Manager Chronic Care 05/23/2023 D/C Care Coordination - Non-CC PCP Reason Comments Consult New Patient Specialty Diagnoses / Procedures Referred By Contac t Referred To Contact Endocrinology Diagnoses Diabetes mellitus due to underlying condition, uncontrolled, with hyperglycemia (HCC) H/O medication noncompliance Procedures CONSULT TO ENDOCRINOLOGY OFFICE/OUTPATIENT NEW HIGH MDM 60-74 MINUTES Belgica Vega DO [address] [address] Referral ID Status Reason Start Date Expiration Date V isits Requested Visits Authorized [id number] Closed PCP Requested Referral 11/04/2022 11/04/2023 1 1 Reason Comments CKD Follow Up Reason Comments Home Care MD to follow Reason Comments Home Care Confirmation Call Reason Comments Home Care Specialty Diagnoses / Procedures Referred By Contac t Referred To Contact [facility] Home Care [address] [place] [address] Referral ID Status Reason Start Date Expiration Date Visits Re quested Visits Authorized [id number] 1 1 Reason Comments Home Care Scheduling [...] Pt presents to ED via EMS from [facility] for responding slowly and indicates he is cold. Specialty Diagnoses / Procedures Referred By Vadim wiseman Referred To Contact Diagnoses Chills Procedures [email or web address] Flori Hills MD [address] [place] [address] Phone: tel: fax: [facility] [address] [place] [address] Phone: tel: fax: Referral ID Status Reason Start Date Expiration Date Visits Re quested Visits Authorized [id number] 1 1 Telephone Encounter - Bunny Giraldo) - 02/17/2020 9:28 AM ESTTelephone Encounter - Belgica Herrera - 02/17/2020 5:55 PM ESTTelephone Encounter - Samia Thomason) - 02/18/2020 2:25 PM EST Miscellaneous Notes (unrecog nized section and content) CONSULT TO ORTHOPAEDIC SURGERY PLACED. CONF. 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 Glucose was 322. Please [...] this encounter Consult to behavioral health, # [id number] documented in this encounter Consult to behavioral health, # [id number] documented in this encounter Please notify patient received form from [employer] insurance indicating that they will only provide [...] TO OPHTHALMOLOGY PLACED IN PORTAL CONF # [id number] CONSULT TO ENT PLACED IN PORTAL CONF # [id number] Bunny Giraldo LPN 02/21/2020 11:36 AM documented in this encounter Please send letter to patient regarding the above Thank you, Belgica Herrera D.O. The department of Neurology called into the office stating that they have tried reaching out to the patient at the telephone number listed in the patients chart [phone] and when called she reached a lady who stated that the number was incorrect and she has tried telling people from [facility] this several times. Neurology has no way in contacting the patient regarding scheduling a appointment due to no number on file. Eden Aragon CMA documented in this encounter CONSULT TO PHYSICAL THERAPY PLACED. CONF. # [id number] Bunny Giraldo LPN 02/17/2020 9:48 AM documented [...] section and content) DATE CREATED AUTHOR 01/28/2021 [facility] DATE CREATED AUTHOR AUTHOR'S ORGANIZ ATION 02/28/2022 [facility] DATE CREATED AUTHOR AUTHOR'S ORGANIZ ATION 05/17/2024 [facility] DATE CREATED AUTHOR AUTHOR'S ORGANIZ ATION 07/25/2024 [facility] DATE CREATED AUTHOR AUTHOR'S ORGANIZ ATION 12/09/2024 [facility] DATE CREATED AUTHOR AUTHOR'S ORGANIZ ATION 02/05/2025 [facility] DATE CREATED AUTHOR AUTHOR'S ORGANIZ ATION 02/11/2025 [facility] Teams (unrecognized sec tion and content) Shirring Machine Operator Relationship Specialty Start Date End Date Belgica Vega DO [address] [place] [address] PCP - General Family Practice 02/26/21 Belgica Vega DO [address] [place] [address] Family Practice 02/26/21 Jen Bergman, field cane scalerSporting Goods Sales Manager 09/23/20 Shirring Machine Operator Relationship Specialty Start Date End Date Belgica Vega DO [address] [place] [address] PCP - General Family Practice 02/26/21 Belgica Vega DO [address] [place] [address] Family Practice 02/26/21 Jen Bergman, field cane scalerSporting Goods Sales Manager 09/23/20 Shirring Machine Operator Relationship Specialty Start Date End Date Belgica eVga DO [address] [place] [address] PCP - General Family Practice 02/26/21 Belgica Vega DO [address] [place] [address] Family Practice 02/26/21 Jen Bergman, field cane scalerSporting Goods Sales Manager 09/23/20 Shirring Machine Operator Relationship Specialty Start Date End Date Belgica Vega DO [address] [place] [address] PCP - General Family Practice 02/26/21 Belgica Vega DO [address] [place] [address] Family Practice 02/26/21 Jen Bergman, field cane scalerSporting Goods Sales Manager 09/23/20 Shirring Machine Operator Relationship Specialty Start Date End Date Belgica Vega, DO [address] [place] [address] PCP - General [facility] Practice 02/26/21 Belgcia Vega, DO [address] [place] [address] Family Practice 02/26/21 Jen Bergman, field cane scalerSporting Goods Sales Manager 09/23/20 Shirring Machine Operator Relationship Specialty Start Date End Date Belgica Vega, DO [address] [place] [address] PCP - General [facility] Practice 02/26/21 Belgica Vega, DO [address] [place] [address] Family Practice 02/26/21 Jen Bergman, field cane scalerSporting Goods Sales Manager 09/23/20 Shirring Machine Operator Relationship Specialty Start Date End Date Belgica Vega, DO [address] [place] [address] PCP - General [facility] Practice 02/26/21 Belgica Vega, DO [address] [place] [address] Family Practice 02/26/21 Jen Bergman, field cane scalerSporting Goods Sales Manager 09/23/20 Shirring Machine Operator Relationship Specialty Start Date End Date Belgica Vega, DO [address] [place] [address] PCP - General [facility] Practice 02/26/21 Belgica Vega, DO [address] [place] [address] [facility] Practice 02/26/21 Jen Bergman, field cane scalerSporting Goods Sales Manager 09/23/20 Shirring Machine Operator Relationship Specialty Start Date End Date Belgica Vega, DO [address] [place] [address] PCP - General Family Practice 02/26/21 Belgica Vega, DO [address] [place] [address] Family Practice 02/26/21 Jen Bergman, field cane scalerSporting Goods Sales Manager 09/23/20 Shirring Machine Operator Relationship Specialty Start Date End Date Belgica Vega, DO [address] [place] [address] PCP - General Family Practice 02/26/21 Belgica Vega, DO [address] [place] [address] Family Practice 02/26/21 Jen Bergman, field cane scalerSporting Goods Sales Manager 09/23/20 Shirring Machine Operator Relationship Specialty Start Date End Date Belgica Vega, DO [address] [place] [address] PCP - General Family Practice 02/26/21 Belgica Vega, DO [address] [place] [address] Family Practice 02/26/21 Jen Bergman, field cane scalerSporting Goods Sales Manager 09/23/20 Shirring Machine Operator Relationship Specialty Start Date End Date Belgica Vega, DO [address] [place] [address] PCP - General Family Practice 02/26/21 Belgica Vega, DO [address] [place] [address] Family Practice 02/26/21 Jen Bergman, field cane scalerSporting Goods Sales Manager 09/23/20 Shirring Machine Operator Relationship Specialty Start Date End Date Belgica Vega, DO [address] [place] [address] PCP - General Family Practice 02/26/21 Belgica Vega, DO [address] [place] [address] Family Practice 02/26/21 Jen Bergman, field cane scalerSporting Goods Sales Manager 09/23/20 Shirring Machine Operator Relationship Specialty Start Date End Date Belgica Vega, DO [address] [place] [address] PCP - General Family Practice 02/26/21 Belgica Vega, DO [address] [place] [address] Family Practice 02/26/21 Jen Bergman, field cane scalerSporting Goods Sales Manager 09/23/20 Shirring Machine Operator Relationship Specialty Start Date End Date Belgica Vega, DO [address] [place] [address] PCP - General Family Practice 02/26/21 Belgica Vega, DO [address] [place] [address] Family Practice 02/26/21 Jen Bergman, field cane scalerSporting Goods Sales Manager 09/23/20 Belgica Vega, DO [address] [place] [address] Referring Family Practice 10/08/21 Shirring Machine Operator Relationship Specialty Start Date End Date Belgica Vega DO [address] [place] [address] PCP - General Family Practice 02/26/21 Belgica Vega DO [address] [place] [address] Family Practice 02/26/21 Jen Bergman, field cane scalerSporting Goods Sales Manager 09/23/20 Belgica Vega, DO [address] [place] [address] Referring Family Practice 10/08/21 Shirring Machine Operator Relationship Specialty Start Date End Date Belgica Vega, DO [address] [place] [address] PCP - General Family Practice 02/26/21 Belgica Vega, DO [address] [place] [address] [facility] Practice 02/26/21 Jen Bergman, field cane scalerSporting Goods Sales Manager 09/23/20 Belgica Vega, DO [address] [place] [address] Referring Family Practice 10/08/21 Shirring Machine Operator Relationship Specialty Start Date End Date Belgica Vega, DO [address] [place] [address] PCP - General Family Practice 02/26/21 Belgica Vega, DO [address] [place] [address] Family Practice 02/26/21 Jen Bergman, field cane scalerSporting Goods Sales Manager 09/23/20 Belgica Vega, DO [address] [place] [address] Referring Family Practice 10/08/21 Shirring Machine Operator Relationship Specialty Start Date End Date Belgica Vega, DO [address] [place] [address] PCP - General Family Practice 02/26/21 Belgica Vega, DO [address] [place] [address] Family Practice 02/26/21 Jen Bergman, field cane scalerSporting Goods Sales Manager 09/23/20 Belgica Vega, DO [address] [place] [address] Referring Family Practice 10/08/21 Shirring Machine Operator Relationship Specialty Start Date End Date Belgica Vega, DO [address] [place] [address] PCP - General Family Practice 02/26/21 Belgica Vega, DO [address] [place] [address] Family Practice 02/26/21 Jen Bergman, field cane scalerSporting Goods Sales Manager 09/23/20 Belgica Vega, DO [address] [place] [address] Referring Family Practice 10/08/21 Shirring Machine Operator Relationship Specialty Start Date End Date Belgica Vega, DO [address] [place] [address] PCP - General Family Practice 02/26/21 Belgica Vega, DO [address] [place] [address] Family Practice 02/26/21 Jen Bergman, field cane scalerSporting Goods Sales Manager 09/23/20 Belgica Vega, DO [address] [place] [address] Referring Family Practice 10/08/21 Shirring Machine Operator Relationship Specialty Start Date End Date Belgica Vega DO PCP - General Family Practice 02/26/21 Belgica Vega, DO Family Practice 02/26/21 Jen Bergman, field cane scalerSporting Goods Sales Manager 09/23/20 Belgica Vega, DO Referring Family Practice 10/08/21 Shirring Machine Operator Relationship Specialty Start Date End Date Belgica Vega, DO PCP - General Family Medicine 02/26/21 Belgica Vega, DO Family Medicine 02/26/21 Jen Bergman, field cane scalerSporting Goods Sales Manager 09/23/20 Belgica Vega, DO Referring Family Medicine 10/08/21 Shirring Machine Operator Relationship Specialty Start Date End Date Belgica Vega DO PCP - General Family Medicine 02/26/21 Belgica Vega DO Family Medicine 02/26/21 Jen Bergman, field cane scalerSporting Goods Sales Manager 09/23/20 Belgica Vega, DO Referring Family Medicine 10/08/21 Shirring Machine Operator Relationship Specialty Start Date End Date Belgica Vega DO PCP - General Family Medicine 02/26/21 Belgica Vega, DO Family Medicine 02/26/21 Jen Bergman, field cane scalerSporting Goods Sales Manager 09/23/20 Belgica Vega, DO Referring Family Medicine 10/08/21 Shirring Machine Operator Relationship Specialty Start Date End Date Belgica Vega, DO PCP - General Family Medicine 02/26/21 Belgica Vega, DO Family Medicine 02/26/21 Jen Bergman, field cane scalerSporting Goods Sales Manager 09/23/20 Belgica Vega, DO Referring Family Medicine 10/08/21 Shirring Machine Operator Relationship Specialty Start Date End Date Belgica Vega, DO PCP - General Family Medicine 02/26/21 Belgica Vega, DO Family Medicine 02/26/21 Jen Bergman, field cane scalerSporting Goods Sales Manager 09/23/20 Belgica Vega, DO Referring Family Medicine 10/08/21 Shirring Machine Operator Relationship Specialty Start Date End Date Belgica Vega, DO PCP - General Family Medicine 02/26/21 Belgica Vega, DO Family Medicine 02/26/21 Jen Bergman, field cane scalerSporting Goods Sales Manager 09/23/20 Belgica Vega, DO Referring Family Medicine 10/08/21 Shirring Machine Operator Relationship Specialty Start Date End Date Belgica Vega, DO PCP - General Family Medicine 02/26/21 Belgica Vega, DO Family Medicine 02/26/21 Jen Bergman, field cane scalerSporting Goods Sales Manager 09/23/20 Belgica Vega, DO Referring Family Medicine 10/08/21 Shirring Machine Operator Relationship Specialty Start Date End Date Belgica Vega, DO PCP - General Family Medicine 02/26/21 Belgica Vega, DO Family Medicine 02/26/21 Jen Bergman, field cane scalerSporting Goods Sales Manager 09/23/20 Belgica Vega, DO Referring Family Medicine 10/08/21 Shirring Machine Operator Relationship Specialty Start Date End Date Belgica Vega DO PCP - General Family Medicine 02/26/21 Belgica Vega DO Family Medicine 02/26/21 Jen Bergman, field cane scalerSporting Goods Sales Manager 09/23/20 Belgica Vega DO Referring Family Medicine 10/08/21 Shirring Machine Operator Relationship Specialty Start Date End Date Belgica Vega DO PCP - General Family Medicine 02/26/21 Belgica Vega DO Family Medicine 02/26/21 Jen Bergman, field cane scalerSporting Goods Sales Manager 09/23/20 Belgica Vega, DO Referring Family Medicine 10/08/21 Shirring Machine Operator Relationship Specialty Start Date End Date Belgica Vega DO PCP - General Family Medicine 02/26/21 Belgica Vega, DO Family Medicine 02/26/21 Jen Bergman, field cane scalerSporting Goods Sales Manager 09/23/20 Belgica Vega, DO Referring Family Medicine 10/08/21 Shirring Machine Operator Relationship Specialty Start Date End Date Belgica Vega, DO PCP - General Family Medicine 02/26/21 Belgica Vega, DO Family Medicine 02/26/21 Jen Bergman, field cane scalerSporting Goods Sales Manager 09/23/20 Belgica Vega, DO Referring Family Medicine 10/08/21 Shirring Machine Operator Relationship Specialty Start Date End Date Belgica Vega, DO PCP - General Family Medicine 02/26/21 Belgica Vega, DO Family Medicine 02/26/21 Jen Bergman, field cane scalerSporting Goods Sales Manager 09/23/20 Belgica Vega, DO Referring Family Medicine 10/08/21 Shirring Machine Operator Relationship Specialty Start Date End Date Belgica Vega, DO PCP - General Family Medicine 02/26/21 Belgica Vega, DO Family Medicine 02/26/21 Jen Bergman, field cane scalerSporting Goods Sales Manager 09/23/20 Belgica Vega, DO Referring Family Medicine 10/08/21 Shirring Machine Operator Relationship Specialty Start Date End Date Belgica Vega, DO PCP - General Family Medicine 02/26/21 Belgica Vega, DO Family Medicine 02/26/21 Jen Bergman, field cane scalerSporting Goods Sales Manager 09/23/20 Belgica Vega, DO Referring Family Medicine 10/08/21 Shirring Machine Operator Relationship Specialty Start Date End Date Belgica Vega DO PCP - General Family Medicine 02/26/21 Belgica Vega, DO Family Medicine 02/26/21 Jen Bergman, field cane scalerSporting Goods Sales Manager 09/23/20 Belgica Vega DO Referring Family Medicine 10/08/21 Shirring Machine Operator Relationship Specialty Start Date End Date Belgica Vega DO PCP - General Family Medicine 02/26/21 Belgica Vega DO Family Medicine 02/26/21 Jen Bergman, field cane scalerSporting Goods Sales Manager 09/23/20 Belgica eVga DO Referring Family Medicine 10/08/21 Shirring Machine Operator Relationship Specialty Start Date End Date Belgica Vega DO PCP - General Family Medicine 02/26/21 Belgica Vega DO Family Medicine 02/26/21 Jen Bergman, field cane scalerSporting Goods Sales Manager 09/23/20 Belgica Vega DO Referring Family Medicine 10/08/21 Shirring Machine Operator Relationship Specialty Start Date End Date Belgica Vgea, DO PCP - General Family Medicine 02/26/21 Belgica Vega, DO Family Medicine 02/26/21 Jen Bermgan, field cane scalerSporting Goods Sales Manager 09/23/20 Belgica Vega, DO Referring Family Medicine 10/08/21 Shirring Machine Operator Relationship Specialty Start Date End Date Belgica Vega DO PCP - General Family Medicine 02/26/21 Belgica Vega, DO Family Medicine 02/26/21 Jen Bergman, field cane scalerSporting Goods Sales Manager 09/23/20 Belgica Vega, DO Referring Family Medicine 10/08/21 Shirring Machine Operator Relationship Specialty Start Date End Date Belgica Vega DO PCP - General Family Medicine 02/26/21 Belgica Vega, DO Family Medicine 02/26/21 Jen Bergman, field cane scalerSporting Goods Sales Manager 09/23/20 Belgica Vega, DO Referring Family Medicine 10/08/21 Shirring Machine Operator Relationship Specialty Start Date End Date Belgica Vega, DO PCP - General Family Medicine 02/26/21 Belgica Vega, DO Family Medicine 02/26/21 Jen Bergman, field cane scalerSporting Goods Sales Manager 09/23/20 Belgica Vega, DO Referring Family Medicine 10/08/21 Shirring Machine Operator Relationship Specialty Start Date End Date Belgica Vega, DO PCP - General Family Medicine 02/26/21 Belgica Vega, DO Family Medicine 02/26/21 Jen Bergman, field cane scalerSporting Goods Sales Manager 09/23/20 Belgica Vega, DO Referring Family Medicine 10/08/21 Shirring Machine Operator Relationship Specialty Start Date End Date Belgica Vega DO PCP - General Family Medicine 02/26/21 Belgica Vega, DO Family Medicine 02/26/21 Jen Bergman, field cane scalerSporting Goods Sales Manager 09/23/20 Belgica Vega, DO Referring Family Medicine 10/08/21 Shirring Machine Operator Relationship Specialty Start Date End Date Belgica Vega DO PCP - General Family Medicine 02/26/21 Belgica Vega, DO Family Medicine 02/26/21 Jen Bergman, field cane scalerSporting Goods Sales Manager 09/23/20 Belgica Vega, DO Referring Family Medicine 10/08/21 Shirring Machine Operator Relationship Specialty Start Date End Date Belgica Vega DO PCP - General Family Medicine 02/26/21 Belgica Vega, DO Family Medicine 02/26/21 Jen Bergman, field cane scalerSporting Goods Sales Manager 09/23/20 Belgica Vega, DO Referring Family Medicine 10/08/21 Shirring Machine Operator Relationship Specialty Start Date End Date Belgica Vega DO PCP - General Family Medicine 02/26/21 Belgica Vega, DO Family Medicine 02/26/21 Jen Bergman, field cane scalerSporting Goods Sales Manager 09/23/20 Belgica Vega, DO Referring Family Medicine 10/08/21 Shirring Machine Operator Relationship Specialty Start Date End Date Belgica Vega DO PCP - General Family Medicine 02/26/21 Belgica Vega, DO Family Medicine 02/26/21 Jen Bergman, field cane scalerSporting Goods Sales Manager 09/23/20 Belgica Vega DO Referring Family Medicine 10/08/21 Shirring Machine Operator Relationship Specialty Start Date End Date Belgica Vega DO PCP - General Family Medicine 02/26/21 Belgica Vega, DO Family Medicine 02/26/21 Jen Bergman, field cane scalerSporting Goods Sales Manager 09/23/20 Belgica Vega, DO Referring Family Medicine 10/08/21 Shirring Machine Operator Relationship Specialty Start Date End Date Belgica Vega, DO PCP - General Family Medicine 02/26/21 Belgica Vega, DO Family Medicine 02/26/21 Jen Bergman, field cane scalerSporting Goods Sales Manager 09/23/20 Belgica Vega, DO Referring Family Medicine 10/08/21 Shirring Machine Operator Relationship Specialty Start Date End Date Belgica Vega, DO PCP - General Family Medicine 02/26/21 Belgica Vega, DO Family Medicine 02/26/21 Jen Bergman, field cane scalerSporting Goods Sales Manager 09/23/20 Belgica Vega, DO Referring Family Medicine 10/08/21 Shirring Machine Operator Relationship Specialty Start Date End Date Belgica Vega DO PCP - General Family Medicine 02/26/21 Belgica Vega, DO Family Medicine 02/26/21 Jen Bergman, field cane scalerSporting Goods Sales Manager 09/23/20 Belgica Vega, DO Referring Family Medicine 10/08/21 Shirring Machine Operator Relationship Specialty Start Date End Date Belgica Vega, DO PCP - General Family Medicine 02/26/21 Belgica Vega, DO Family Medicine 02/26/21 Jen Bergman, field cane scalerSporting Goods Sales Manager 09/23/20 Belgica Vega, DO Referring Family Medicine 10/08/21 Shirring Machine Operator Relationship Specialty Start Date End Date Belgica Vega, DO PCP - General Family Medicine 02/26/21 Belgica Vega, DO [address] [place] [address] Family Medicine 02/26/21 Jen Bergman, field cane scalerSporting Goods Sales Manager 09/23/20 Belgica Vega, DO Referring Family Medicine 10/08/21 Shirring Machine Operator Relationship Specialty Start Date End Date Belgica Vega DO PCP - General Family Medicine 02/26/21 Belgica Vega, DO [address] [place] [address] Family Medicine 02/26/21 Jen Bergman, field cane scalerSporting Goods Sales Manager 09/23/20 Belgica Vega, DO Referring Family Medicine 10/08/21 Shirring Machine Operator Relationship Specialty Start Date End Date Belgica Vega DO PCP - General Family Medicine 02/26/21 Belgica Vega, DO [address] [place] [address] Family Medicine 02/26/21 Jen Bergman, field cane scalerSporting Goods Sales Manager 09/23/20 Belgica Vega, DO Referring Family Medicine 10/08/21 Belgica Vega, DO [address] [place] [address] Referring Family Medicine 10/03/22 Shirring Machine Operator Relationship Specialty Start Date End Date Belgica Vega DO PCP - General Family Medicine 02/26/21 Belgica Vega DO [address] [place] [address] Family Medicine 02/26/21 Jen Bergman, field cane scalerSporting Goods Sales Manager 09/23/20 Belgica Vega DO Referring Family Medicine 10/08/21 Belgica Vega DO [address] [place] [address] Referring Family Medicine 10/03/22 Shirring Machine Operator Relationship Specialty Start Date End Date Belgica Vega DO PCP - General Family Medicine 02/26/21 Belgica Vega DO [address] [place] [address] Family Medicine 02/26/21 Jen Bergman, field cane scalerSporting Goods Sales Manager 09/23/20 Belgica Vega DO Referring Family Medicine 10/08/21 Belgica Vega DO [address] [place] [address] Referring Family Medicine 10/03/22 Shirring Machine Operator Relationship Specialty Start Date End Date Belgica Vega DO PCP - General Family Medicine 02/26/21 Belgica Vega DO [address] [place] [address] Family Medicine 02/26/21 Jen Bergman, field cane scalerSporting Goods Sales Manager 09/23/20 Belgica Vega DO Referring Family Medicine 10/08/21 Belgica Vega DO [address] [place] [address] Referring Family Medicine 10/03/22 Shirring Machine Operator Relationship Specialty Start Date End Date Belgica Vega DO PCP - General Family Medicine 02/26/21 Belgica Vega DO [address] [place] [address] Family Medicine 02/26/21 Jen Bergman, field cane scalerSporting Goods Sales Manager 09/23/20 Belgica Vega DO Referring Family Medicine 10/08/21 Belgica Vega DO [address] [place] [address] Referring Family Medicine 10/03/22 Shirring Machine Operator Relationship Specialty Start Date End Date Belgica Vega DO PCP - General Family Medicine 02/26/21 Belgica Vega DO [address] [place] [address] Family Medicine 02/26/21 Jen Bergman, field cane scalerSporting Goods Sales Manager 09/23/20 Belgica Vega DO Referring Family Medicine 10/08/21 Belgica Vega DO [address] [place], [place] [address] [phone] Referring Family Medicine 10/03/22 Shirring Machine Operator Relationship Specialty Start Date End Date Belgica Vega DO PCP - General Family Medicine 02/26/21 Belgica Vega DO [address] [place] [address] Family Medicine 02/26/21 Jen Bergman, field cane scalerSporting Goods Sales Manager 09/23/20 Belgica Vega DO Referring Family Medicine 10/08/21 Belgica Vega DO [address] [place] [address] Referring Family Medicine 10/03/22 Shirring Machine Operator Relationship Specialty Start Date End Date Belgica Vega DO PCP - General Family Medicine 02/26/21 Belgica Vega DO [address] [place] [address] Family Medicine 02/26/21 Jen Bergman, field cane scalerSporting Goods Sales Manager 09/23/20 Belgica Vega DO Referring Family Medicine 10/08/21 Belgica Vega DO [address] [place] [address] Referring Family Medicine 10/03/22 Shirring Machine Operator Relationship Specialty Start Date End Date Belgica Vega DO PCP - General Family Medicine 02/26/21 Belgica Vega DO [address] [place] [address] Family Medicine 02/26/21 Jen Bergman, field cane scalerSporting Goods Sales Manager 09/23/20 Belgica Vega DO Referring Family Medicine 10/08/21 Belgica Vega DO [address] [place] [address] Referring Family Medicine 10/03/22 Shirring Machine Operator Relationship Specialty Start Date End Date Belgica Vega DO PCP - General Family Medicine 02/26/21 Belgica Vega DO [address] [place] [address] Family Medicine 02/26/21 Jen Bergman, field cane scalerSporting Goods Sales Manager 09/23/20 Belgica Vega DO Referring Family Medicine 10/08/21 Belgica Vega DO [address] [place], [place] [address] Referring Family Medicine 10/03/22 Shirring Machine Operator Relationship Specialty Start Date End Date Belgica Vega DO PCP - General Family Medicine 02/26/21 Belgica Vega DO [address] [place], [place] [address] [phone] Family Medicine 02/26/21 Jen Bergman, field cane scalerSporting Goods Sales Manager 09/23/20 Belgica Vega DO Referring Family Medicine 10/08/21 Belgica Vega DO [address] [place], [place] [address] [phone] Referring Family Medicine 10/03/22 Shirring Machine Operator Relationship Specialty Start Date End Date Belgica Vega DO PCP - General Family Medicine 02/26/21 Belgica Vega DO [address] [place], [place] [address] [phone] Family Medicine 02/26/21 Jen Bergman, field cane scalerSporting Goods Sales Manager 09/23/20 Belgica Vega DO Referring Family Medicine 10/08/21 Belgica Vega DO [address] [place] [address] Referring Family Medicine 10/03/22 Shirring Machine Operator Relationship Specialty Start Date End Date Belgica Vega DO PCP - General Family Medicine 02/26/21 Belgica Vega DO [address] [place] [address] Family Medicine 02/26/21 Jen Bergman, field cane scalerSporting Goods Sales Manager 09/23/20 Belgica Vega DO Referring Family Medicine 10/08/21 Belgica Vega DO [address] [place] [address] Referring Family Medicine 10/03/22 Shirring Machine Operator Relationship Specialty Start Date End Date Belgica Vega DO PCP - General Family Medicine 02/26/21 Belgica Vega DO [address] [place] [address] Family Medicine 02/26/21 Jen Bergman, field cane scalerSporting Goods Sales Manager 09/23/20 Belgica Vega DO Referring Family Medicine 10/08/21 Belgica Vega DO [address] [place] [address] Referring Family Medicine 10/03/22 Shirring Machine Operator Relationship Specialty Start Date End Date Belgica Vega DO PCP - General Family Medicine 02/26/21 Belgica Vega DO [address] [place], [place] [id number] [phone] Family Medicine 02/26/21 Jen Bergman, field cane scalerSporting Goods Sales Manager 09/23/20 Belgica Vega DO Referring Family Medicine 10/08/21 Belgica Vega DO [address] [place], [place] [address] [phone] Referring Family Medicine 10/03/22 Shirring Machine Operator Relationship Specialty Start Date End Date Belgica Vega DO PCP - General Family Medicine 02/26/21 Belgica Vega DO [address] [place], [place] [id number] [phone] Family Medicine 02/26/21 Jen Bergman, field cane scalerSporting Goods Sales Manager 09/23/20 Belgica Vega DO Referring Family Medicine 10/08/21 Belgica Vega DO [address] [place] [address] Referring Family Medicine 10/03/22 Shirring Machine Operator Relationship Specialty Start Date End Date Belgica Vega DO PCP - General Family Medicine 02/20/20 02/25/21 Shirring Machine Operator Relationship Specialty Start Date End Date Bunny Scott MD [address] [place] [address] PCP - General Internal Medicine 03/16/23 Belgica Vega DO [address] [facility] [address] [place] [address] Family Medicine 02/26/21 05/23/23 Jen Bergman, field cane scalerSporting Goods Sales Manager 09/23/20 Belgica Vega DO Referring Family Medicine 10/08/21 05/23/23 Belgica Vega DO [address] [address] Referring Family Medicine 10/03/22 05/23/23 Shirring Machine Operator Relationship Specialty Start Date End Date Bunny Scott MD [address] [place] [address] PCP - General Internal Medicine 03/16/23 Belgica Vega DO [address] [address] Family Medicine 02/26/21 05/23/23 Jen Bergman, field cane scalerSporting Goods Sales Manager 09/23/20 Belgica Vega DO Referring Family Medicine 10/08/21 05/23/23 Belgica Vega DO [address] [address] Referring Family Medicine 10/03/22 05/23/23 Shirring Machine Operator Relationship Specialty Start Date End Date Bunny Scott MD [address] [place] [address] PCP - General Internal Medicine 03/16/23 Shirring Machine Operator Relationship Specialty Start Date End Date Bunny Scott MD [address] [place] [address] PCP - General Internal Medicine 03/16/23 Shirring Machine Operator Relationship Specialty Start Date End Date Bunny Scott MD [address] [place] [address] PCP - General Internal Medicine 03/16/23 Shirring Machine Operator Relationship Specialty Start Date End Date Bunny Scott MD [address] [place] [address] PCP - General Internal Medicine 03/16/23 Shirring Machine Operator Relationship Specialty Start Date End Date Bunny Scott MD [address] [place] [address] PCP - General Internal Medicine 03/16/23 Shirring Machine Operator Relationship Specialty Start Date End Date Bunny Scott MD [address] [place] [address] PCP - General Internal Medicine 03/16/23 Bunny Scott MD [address] [place] [address] Home Care Provider Internal Medicine 10/12/23 Shirring Machine Operator Relationship Specialty Start Date End Date Bunny Scott MD [address] [place] [address] PCP - General Internal Medicine 03/16/23 Bunny Scott MD [address] [place] [address] Home Care Provider Internal Medicine 10/12/23 Shirring Machine Operator Relationship Specialty Start Date End Date Bunny Scott MD [address] [place] [address] PCP - General Internal Medicine 03/16/23 Bunny Scott MD [address] [place] [address] Home Care Provider Internal Medicine 10/12/23 Simeon Hinds RN [address] [place], [place] [phone] E Business Project Manager Post Acute Care 10/20/23 Shirring Machine Operator Relationship Specialty Start Date End Date Bunny Scott MD [address] [place] [address] PCP - General Internal Medicine 03/16/23 Bunny Scott MD [address] [place] [address] Home Care Provider Internal Medicine 10/12/23 Simeon Hinds RN [address] [place] [address] E Business Project Manager Post Acute Care 10/20/23 Shirring Machine Operator Relationship Specialty Start Date End Date Bunny Scott MD [address] [place] [address] PCP - General Internal Medicine 03/16/23 Bunny Scott MD [address] [place] [address] Home Care Provider Internal Medicine 10/12/23 Simeon Hinds RN [address] [facility] [place] [address] E Business Project Manager Post Acute Care 10/20/23 Shirring Machine Operator Relationship Specialty Start Date End Date Bunny Scott MD [address] [place] [address] PCP - General Internal Medicine 03/16/23 Bunny Scott MD [address] [place] [address] Home Care Provider Internal Medicine 10/12/23 Simeon Hinds RN [address] [facility] [place] [address] E Business Project Manager Post Acute Care 10/20/23 Shirring Machine Operator Relationship Specialty Start Date End Date Bunny Scott MD [address] [place] [address] PCP - General Internal Medicine 03/16/23 Bunny Scott MD [address] [place] [address] Home Care Provider Internal Medicine 10/12/23 Simeon Hinds RN [address] [facility] [place] [address] E Business Project Manager Post Acute Care 10/20/23 Shirring Machine Operator Relationship Specialty Start Date End Date Bunny Scott MD [address] [place] [address] PCP - General Internal Medicine 03/16/23 Bunny Scott MD [address] [place] [address] Home Care Provider Internal Medicine 10/12/23 Simeon Hinds RN [address] [facility] [place] [address] E Business Project Manager Post Acute Care 10/20/23 Shirring Machine Operator Relationship Specialty Start Date End Date Bunny Scott MD [address] [place] [address] PCP - General Internal Medicine 03/16/23 Bunny Scott MD [address] [place] [address] Home Care Provider Internal Medicine 10/12/23 Simeon Hinds RN [address] [facility] [place] [address] E Business Project Manager Post Acute Care 10/20/23 Shirring Machine Operator Relationship Specialty Start Date End Date Bunny Scott MD [address] [place] [address] PCP - General Internal Medicine 03/16/23 Bunny Scott MD [address] [place] [address] Home Care Provider Internal Medicine 10/12/23 Simeon Hinds RN [address] [facility] [place] [address] E Business Project Manager Post Acute Care 10/20/23 Shirring Machine Operator Relationship Specialty Start Date End Date Bunny Scott MD [address] [place] [address] PCP - General Internal Medicine 03/16/23 Bnuny Scott MD [address] [place] [address] Home Care Provider Internal Medicine 10/12/23 Simeon Hinds RN [address] [facility] [place] [address] E Business Project Manager Post Acute Care 10/20/23 Shirring Machine Operator Relationship Specialty Start Date End Date Bunny Scott MD [address] [place] [address] PCP - General Internal Medicine 03/16/23 Bunny Scott MD [address] [place] [address] Home Care Provider Internal Medicine 10/12/23 Simeon Hinds RN [address] [facility] [place] [address] E Business Project Manager Post Acute Care 10/20/23 Shirring Machine Operator Relationship Specialty Start Date End Date Bunny Scott MD [address] [place] [address] PCP - General Internal Medicine 03/16/23 Bunny Scott MD [address] [place] [address] Home Care Provider Internal Medicine 10/12/23 Simeon Hinds RN [address] [facility] [place] [address] E Business Project Manager Post Acute Care 10/20/23 Shirring Machine Operator Relationship Specialty Start Date End Date Bunny Scott MD [address] [place] [address] PCP - General Internal Medicine 03/16/23 Bunny Scott MD [address] [place] [address] Home Care Provider Internal Medicine 10/12/23 Simeon Hinds RN [address] [facility] [place] [address] E Business Project Manager Post Acute Care 10/20/23 Shirring Machine Operator Relationship Specialty Start Date End Date Bunny Scott MD [address] [place] [address] PCP - General Internal Medicine 03/16/23 Bunny Scott MD [address] [place] [address] Home Care Provider Internal Medicine 10/12/23 Simeon Hinds RN [address] [place] [address] E Business Project Manager Post Acute Care 10/20/23 Shirring Machine Operator Relationship Specialty Start Date End Date Bunny Scott MD [address] [place] [address] PCP - General Internal Medicine 03/16/23 Bunny Scott MD [address] [place] [address] Home Care Provider Internal Medicine 10/12/23 Simeon Hinds RN [address] [facility] [place] [address] E Business Project Manager Post Acute Care 10/20/23 Shirring Machine Operator Relationship Specialty Start Date End Date Bunny Scott MD [address] [place] [address] PCP - General Internal Medicine 03/16/23 Bunny Scott MD [address] [place] [address] Home Care Provider Internal Medicine 10/12/23 Shirring Machine Operator Relationship Specialty Start Date End Date Bunny Scott MD [address] [place] [address] PCP - General Internal Medicine 03/16/23 Bunny Scott MD [address] [place] [address] Home Care Provider Internal Medicine 10/12/23 Shirring Machine Operator Relationship Specialty Start Date End Date Bunny Scott MD [address] [place] [address] PCP - General Internal Medicine 03/16/23 Bunny Scott MD [address] [place] [address] Home Care Provider Internal Medicine 10/12/23 Shirring Machine Operator Relationship Specialty Start Date End Date Bunny Scott MD [address] [place] [address] PCP - General Internal Medicine 03/16/23 Bunny Scott MD [address] [place] [address] Home Care Provider Internal Medicine 10/12/23 Shirring Machine Operator Relationship Specialty Start Date End Date Bunny Scott MD [address] [place] [address] PCP - General Internal Medicine 03/16/23 Bunny Scott MD [address] [place] [address] Home Care Provider Internal Medicine 10/12/23 Shirring Machine Operator Relationship Specialty Start Date End Date Bunny Scott MD [address] [place] [address] PCP - General Internal Medicine 03/16/23 Bunny Scott MD [address] [place] [address] Home Care Provider Internal Medicine 10/12/23 Jose Dudley MD [address] [address] Physician Nephrology 01/23/24 Shirring Machine Operator Relationship Specialty Start Date End Date Bunny Scott MD [address] [place] [address] PCP - General Internal Medicine 03/16/23 Bunny Scott MD [address] [place] [address] Home Care Provider Internal Medicine 10/12/23 Jose Dudley [place] [address] [address] Physician Nephrology 01/23/24 Shirring Machine Operator Relationship Specialty Start Date End Date Bunny Scott MD [address] [place] [address] PCP - General Internal Medicine 03/16/23 Bunny Scott MD [address] [place] [address] Home Care Provider Internal Medicine 10/12/23 Jose Dudley MD [address] [address] Physician Nephrology 01/23/24 Shirring Machine Operator Relationship Specialty Start Date End Date Bunny Scott DO [address] [facility] [address] [place] [id number] PCP - General Family Medicine 12/13/23 Shirring Machine Operator Relationship Specialty Start Date End Date Bunny Scott MD [address] [place] [address] PCP - General Internal Medicine 03/16/23 Bunny Scott MD [address] [place] [address] Home Care Provider Internal Medicine 10/12/23 Jose Dudley MD [address] [address] Physician Nephrology 01/23/24 Shirring Machine Operator Relationship Specialty Start Date End Date Bunny Scott MD [address] [place] [address] PCP - General Internal Medicine 03/16/23 Bunny Scott MD [address] [place] [address] Home Care Provider Internal Medicine 10/12/23 Jose Dudley MD [address] [address] Physician Nephrology 01/23/24 Shirring Machine Operator Relationship Specialty Start Date End Date Bunny Scott MD [address] [place] [address] PCP - General Internal Medicine 03/16/23 Bunny Scott MD [address] [place] [address] Home Care Provider Internal Medicine 10/12/23 Jose Dudley MD [address] [address] Physician Nephrology 01/23/24 Shirring Machine Operator Relationship Specialty Start Date End Date Bunny Scott DO [address] [facility] [address] [place] [phone] PCP - General Family Medicine 12/13/23 Shirring Machine Operator Relationship Specialty Start Date End Date Bunny Scott MD [address] [place] [address] PCP - General Internal Medicine 03/16/23 Bunny Scott MD [address] [place] [address] Home Care Provider Internal Medicine 10/12/23 Jose Dudley MD [address] [address] Physician Nephrology 01/23/24 Shirring Machine Operator Relationship Specialty Start Date End Date Bunny Scott MD [address] [place] [address] PCP - General Internal Medicine 03/16/23 Bunny Scott MD [address] [place] [address] Home Care Provider Internal Medicine 10/12/23 Jose Dudley MD [address] [address] Physician Nephrology 01/23/24 Shirring Machine Operator Relationship Specialty Start Date End Date Bunny Scott MD [address] [place] [address] PCP - General Internal Medicine 03/16/23 Bunny Scott MD [address] [place] [address] Home Care Provider Internal Medicine 10/12/23 Jose Dudley MD [address] [address] Physician Nephrology 01/23/24 Shirring Machine Operator Relationship Specialty Start Date End Date Bunyn Scott MD [address] [place] [address] PCP - General Internal Medicine 03/16/23 Bunny Scott MD [address] [place] [address] Home Care Provider Internal Medicine 07/16/24 Jose Dudley MD [address] [address] Physician Nephrology 01/23/24 Bunny Scott MD [address] [place] [address] Referring Internal Medicine 07/16/24 Shirring Machine Operator Relationship Specialty Start Date End Date Bunny Scott MD [address] [place] [address] PCP - General Internal Medicine 03/16/23 Bunny Scott MD [address] [place] [address] Home Care Provider Internal Medicine 07/16/24 Jose Dudley MD [address] [facility] [address] [place], [place] [address] Physician Nephrology 01/23/24 Bunny Scott MD [address] [place] [address] Referring Internal Medicine 07/16/24 Shirring Machine Operator Relationship Specialty Start Date End Date Bunny Scott DO [address] [place] [phone] PCP - General Family Medicine 12/13/23 Team Status: Inactive Member Role Status Dates Brittaney LORENZO MD Attending Provider Active Start: August 28, 2024 End: August 28, 2024 Shirring Machine Operator Relationship Specialty Start Date End Date Brittaney Garcia MD [address] [place] [address] PCP - General Family Medicine 11/25/24 PRN [...] 1 dose, Give after HD session complete. ADD-Lennon bag, Suspected Indication (Select all that apply): [...] sedation for opioid reversal - MUST notify cotton weigher operator provider immediately after first dose, may give [...] Oreilly RN) 0057 (Given - Provider: Lee Farfan RN)0905 (Given - Provider: Christie Orozco, RN)[phone] [...] BE BASED ON THE PRIMARY CLINICAL RECORDS. [facility]. provides no warranty or guarantee of the accuracy or completeness of information in this document.
[2025-03-25 08:16] LABS: Hematocrit 35.2 % (40-54); Hemoglobin 10.4 g/dL (13.0-16.5); Immature Granulocytes Count 0.040 X10^3/uL (0.0-0.0); Mean Corp Hgb Conc 29.5 g/dL (32-36); Mean Corpuscular Volume 97.0 fL (80-94); Mean Platelet Vol. 9.8 fl (6.2-12.0); NRBC Flagged by Analyzer 0 % (0-5); Platelet Count 196 K/mm3 (150-450); RBC Distribution Width CV 14.2 % (11.6-14.6); RBC Distribution Width SD 48.6 fl (35.1-43.9); Red Blood Count 3.63 M/mm3 (4.6-6.2); White Blood Count 9.1 K/mm3 (4.4-11.0)
[2025-03-25 08:45] LABS: Anion Gap 11 (7-18); BUN 60 mg/dL (4-19); BUN/Creat Ratio 9.2 RATIO (10-20); Calcium,Total 9.2 mg/dL (7.6-11.0); Carbon Dioxide 27.4 mmol/L (20.0-29.0); Chloride 101 mmol/L (96-106); Glucose 127 mg/dL (70-99); Potassium 6.1 mmol/L (3.5-5.1)
== END ==
LOC: OLS.SANC 05:00
DX: D64.9 Anemia, unspecified (principal)
CPT/HCPCS: 36415; 80048; 85025

== ENCOUNTER → 2025-04-02 05:00 | Outpatient (REF) | payer MEDICARE, MEDICAID, SELFPAY ==
--- OUTSIDE RECORDS SUMMARY | 2025-04-02 04:27 | XMS RPT_ITS | CCD ---
Author Organization [facility] Care Team Providers Care Spiral Gear Generator Name Role Phone Unavailable Primary Care Provider [...] Care Provider Unavailedward Dudley MD, Jose Unavailable [phone] EsterBunny judd DO Primary Care Provider [phone] ARTEM AHMADI Attending UnavailARTEM Durán Referring Unavailabl e TRISTAN SCOTTA M Primary Care Unavailable ESTERALYSIA, BUNNY M Primary Care Unavailable NOÉ KENNEDY Attending Unavailable BUNNY SCOTT Primary Care Unavailable ADELFO FRANCOIS Admitting Unavaila ADELFO [place] Attending Unavaila ble ANISHA, BUNNY M Primary Care Unavailable YULIYA OLIVARES Admitting Unavailable YULIYA OLIVARES Attending Unavailable Bunny Scott MD Unavailable Bunny Scott MD Unavailable [phone] Bunny Scott MD Primary Care Provider [...] (4 sources) Penicillins Drug Allergy 07-24-2020 Unknown [facility] (18 sources) Penicillins; Translations: [PENICILLINS] Propensity to adverse reactions to drug 07-24-2020 Unknown [facility] (20 sources) Penicillins Propensity to adverse reactions to drug 07-24-2020 Unknown [facility] (5 sources) Penicillins Propensity to adverse reactions to drug 07-24-2020 Unknown [facility] (2 sources) Penicillins Propensity to adverse reactions 07-24-2020 Unknown [facility] Medications Current Medications Medication Drug Class(es) [...] tuberculin skin test, unspecified formulation Given 04/28/2021 [id number] 200 actuat albuterol 0.09 mg/actuat metered dose [...] Comment on above: Take 1 tablet by [facility] twice daily for 5 days. Take 1 [...] Entry) Start: 01-30-2022 take 1 capsule by [facility] every week ergocalciferol 50,000 unit capsule (VITAMIN D2, DRISDOL) Take 1 capsule by mouth one time a week. 4 capsule 0 01/30/2022 Active Comment on above: Take 1 capsule by [facility] one time a week. finasteride 5 mg oral tablet (13 sources) 5-alpha Reductase Inhibitor Start: 05-04-2022 End: 08-02-2022 take 1 tablet by mouth once daily finasteride (PROSCAR) 5 mg tablet Take 1 tablet by mouth once daily. 90 tablet 3 05/04/2022 08/02/2022 Active Comment on above: Take 1 tablet by [facility] once daily. furosemide 20 mg oral tablet [...] above: Take 1 capsule by mo [facility] three times daily for 90 days. insulin [...] above: Take 2 tablets by mo [facility] every 8 hours. atorvastatin 40 mg oral [...] the event of a Fluress shortage, administer Ludell-Fluor 1 drop into both eyes as directed [...] Comment on above: Take 1 capsule by [facility] one time a week. cholecalciferol 9.52 unt/ml [...] Comment on above: Take 1 capsule by [facility] three times daily. cyclobenzaprine hydrochloride 10 mg [...] above: Take 2 tablets by mo [facility] daily with dinner. Take 1 tablet by [...] corinne th once daily. polyethylene glycol 3350 98114 mg powder for oral solution (20 sources) [...] one time a week. 07/10/2024 Discontinued sennosides, custodial 8.6 mg oral tablet (20 sources) Start: End: take 1 tablet by mouth once daily senna (SENOKOT) 8.6 mg tab Take 1 tablet by mouth once daily. 05/27/2023 07/10/2024 Discontinued Start: 09-16-2022 take 1 capsule by mo [facility] once daily Sennosides (SENNA) 8.6 mg cap Take 1 capsule by mouth once daily. 30 capsule 0 09/16/2022 Suspended Comment on above: Take 1 capsule by mo [facility] once daily. Take 1 tablet by [facility] once daily. 50 ml sodium chloride 9 [...] above: Take 1 capsule by mo [facility] once daily. tropicamide 10 mg/ml ophthalmic solution [...] above: Take 1 capsule by mo [facility] daily with breakfast. Problems Active Problems Problem [...] with long-term current use of insulin ([facility])] Onset: 2 Diseases of mouth; excluding dental [...] malignant neoplasm] Episodic Other aftercare (3 sources) retirement (current) use of insulin; Translations: [Type 2 [...] ACCESS [facility] Non-Invasive Vascular Laboratory [facility] Upper Extremity Mapping for [...] Patent axi (more content not included)... Normal [facility] Basic Metabolic Profile (BMP )on 02-04-2025 BUN/CRE 9.7 RATIO Low 10-20 [facility] Comment on above: Order Comment: 412.2 Performed By: #### L 100.0500, L500.2500 #### [facility] [address] [place], [address] Calcium [Mass/Vol] 9.3 mg/dL Normal 7.6-11.0 [facility] Comment on above: Order Comment: 412.2 Performed By: #### L 100.0500, L500.2500 #### [facility] [address] [place], [address] Chloride [Moles/Vol] 100 mmol/L Normal 98-108 [facility] Comment on above: Order Comment: 412.2 Performed By: #### L 100.0500, L500.2500 #### [facility] [address] [place], [address] CO2 [Moles/Vol] 24.6 mmol/L Normal 21.0-32.0 [facility] Comment on above: Order Comment: 412.2 Performed By: #### L 100.0500, L500.2500 #### [facility] [address] [place], [address] Creatinine [Mass/Vol] 5.18 mg/dL High 0.70-1.20 [facility] Comment on above: Order Comment: 412.2 Performed By: #### L 100.0500, L500.2500 #### [facility] [address] [place], [address] GAP 14 Normal 5-15 [facility] Comment on above: Order Comment: 412.2 Performed By: #### L 100.0500, L500.2500 #### [facility] [address] [place], [address] GFR/1.73 sq M.predicted among non-blacks MDRD (S/P/Bld) [Vol rate/Area] 12 mL/min/{1.73_m2} Low >60 [facility] Comment on above: Order Comment: 412.2 Result Comment: mL/m in/1.73m2 CKD-EPI Creatinine Equation (2020) Performed By: #### L 100.0500, L500.2500 #### [facility] [address] [place], [address] Glucose [Mass/Vol] 121 mg/dL High 70-99 [facility] Comment on above: Order Comment: 412.2 Performed By: #### L 100.0500, L500.2500 #### [facility] [address] [place], [address] Potassium [Moles/Vol] 5.0 mmol/L Normal 3.3-5.1 [facility] Comment on above: Order Comment: 412.2 Result Comment: Hemo lysis present, Results??could be affected. ?? Performed By: #### L 100.0500, L500.2500 #### [facility] [address] [place], [address] Sodium [Moles/Vol] 138 mmol/L Normal 133-145 [facility] Comment on above: Order Comment: 412.2 Performed By: #### L 100.0500, L500.2500 #### [facility] [address] [place], [address] Urea nitrogen [Mass/Vol] 50 mg/dL High 4-19 [facility] Comment on above: Order Comment: 412.2 Performed By: #### L 100.0500, L500.2500 #### [facility] [address] [place], [address] CBC-Complete Blood Cnt No Di ffon 02-04-2025 Erythrocyte distribution width (RBC) [Ratio] 12.8 % Normal 11.6-14.6 [facility] Comment on above: Order Comment: 412.2 Performed By: #### L 100.0500, L500.2500 #### [facility] [address] [place], [address] Hematocrit (Bld) [Volume fraction] 31.6 % Low 40-54 [facility] Comment on above: Order Comment: 412.2 Performed By: #### L 100.0500, L500.2500 #### [facility] [address] [place], [address] Hemoglobin (Bld) [Mass/Vol] 10.3 g/dL Low 13.0-16.5 [facility] Comment on above: Order Comment: 412.2 Performed By: #### L 100.0500, L500.2500 #### [facility] [address] [place], [address] MCH (RBC) [Entitic mass] 30.1 pg Normal 27.0-32.0 [facility] Comment on above: Order Comment: 412.2 Performed By: #### L 100.0500, L500.2500 #### [facility] [address] [place], [address] MCHC (RBC) [Mass/Vol] 32.6 g/dL Normal 32-36 [facility] Comment on above: Order Comment: 412.2 Performed By: #### L 100.0500, L500.2500 #### [facility] [address] [place], [address] MCV (RBC) [Entitic vol] 92.4 fL Normal 80-94 [facility] Comment on above: Order Comment: 412.2 Performed By: #### L 100.0500, L500.2500 #### [facility] [address] [place], [address] Platelet mean volume (Bld) [Entitic vol] 9.3 fL Normal 6.2-12.0 [facility] Comment on above: Order Comment: 412.2 Performed By: #### L 100.0500, L500.2500 #### [facility] [address] [place], [address] Platelets (Bld) [#/Vol] 250 10*3/uL Normal 150-450 [facility] Comment on above: Order Comment: 412.2 Performed By: #### L 100.0500, L500.2500 #### [facility] [address] [place], [address] RBC (Bld) [#/Vol] 3.42 10*6/uL Low 4.6-6.2 [facility] Comment on above: Order Comment: 412.2 Performed By: #### L 100.0500, L500.2500 #### [facility] [address] [place], [address] RDW SD 43.2 fl Normal 35.1-43.9 [facility] Comment on above: Order Comment: 412.2 Performed By: #### L 100.0500, L500.2500 #### [facility] [address] [place], [address] WBC (Bld) [#/Vol] 5.6 10*3/uL Normal 4.4-11.0 [facility] Comment on above: Order Comment: 412.2 Performed By: #### L 100.0500, L500.2500 #### [facility] [address] [place], [address] Basic Metabolic Profile (BMP )on 01-15-2024 BUN/CRE 9.1 RATIO Low 10-20 [facility] Comment on above: Order Comment: 412.2 Performed By: #### L 500.2500, L100.0500 #### [facility] [address] [place], [address] Calcium [Mass/Vol] 8.9 mg/dL Normal 7.6-11.0 [facility] Comment on above: Order Comment: 412.2 Performed By: #### L 500.2500, L100.0500 #### [facility] [address] [place], [address] Chloride [Moles/Vol] 100 mmol/L Normal 98-108 [facility] Comment on above: Order Comment: 412.2 Performed By: #### L 500.2500, L100.0500 #### [facility] [address] [place], [address] CO2 [Moles/Vol] 27.9 mmol/L Normal 21.0-32.0 [facility] Comment on above: Order Comment: 412.2 Performed By: #### L 500.2500, L100.0500 #### [facility] [address] [place], [address] Creatinine [Mass/Vol] 5.60 mg/dL High 0.70-1.20 [facility] Comment on above: Order Comment: 412.2 Performed By: #### L 500.2500, L100.0500 #### [facility] [address] [place], [address] GAP 12 Normal 5-15 [facility] Comment on above: Order Comment: 412.2 Performed By: #### L 500.2500, L100.0500 #### [facility] [address] [place], [address] GFR/1.73 sq M.predicted among non-blacks MDRD (S/P/Bld) [Vol rate/Area] 11 mL/min/{1.73_m2} Low >60 [facility] Comment on above: Order Comment: 412.2 Result Comment: mL/m in/1.73m2 CKD-EPI Creatinine Equation (2020) Performed By: #### L 500.2500, L100.0500 #### [facility] [address] [place], [address] Glucose [Mass/Vol] 217 mg/dL High 70-99 [facility] Comment on above: Order Comment: 412.2 Performed By: #### L 500.2500, L100.0500 #### [facility] [address] [place], [address] Potassium [Moles/Vol] 4.7 mmol/L Normal 3.3-5.1 [facility] Comment on above: Order Comment: 412.2 Performed By: #### L 500.2500, L100.0500 #### [facility] [address] [place], [address] Sodium [Moles/Vol] 140 mmol/L Normal 133-145 [facility] Comment on above: Order Comment: 412.2 Performed By: #### L 500.2500, L100.0500 #### [facility] [address] [place], [address] Urea nitrogen [Mass/Vol] 51 mg/dL High 4-19 [facility] Comment on above: Order Comment: 412.2 Performed By: #### L 500.2500, L100.0500 #### [facility] [address] [place], [address] CBC-Complete Blood Cnt No Di ffon 01-15-2025 Erythrocyte distribution width (RBC) [Ratio] 13.1 % Normal 11.6-14.6 [facility] Comment on above: Order Comment: 412.2 Performed By: #### L 500.2500, L100.0500 #### [facility] [address] [place], [address] Hematocrit (Bld) [Volume fraction] 26.2 % Low 40-54 [facility] Comment on above: Order Comment: 412.2 Performed By: #### L 500.2500, L100.0500 #### [facility] [address] [place], [address] Hemoglobin (Bld) [Mass/Vol] 8.3 g/dL Low 13.0-16.5 [facility] Comment on above: Order Comment: 412.2 Performed By: #### L 500.2500, L100.0500 #### [facility] [address] [place], [address] MCH (RBC) [Entitic mass] 29.7 pg Normal 27.0-32.0 [facility] Comment on above: Order Comment: 412.2 Performed By: #### L 500.2500, L100.0500 #### [facility] [address] [place], [address] MCHC (RBC) [Mass/Vol] 31.7 g/dL Low 32-36 [facility] Comment on above: Order Comment: 412.2 Performed By: #### L 500.2500, L100.0500 #### [facility] [address] [place], [address] MCV (RBC) [Entitic vol] 93.9 fL Normal 80-94 [facility] Comment on above: Order Comment: 412.2 Performed By: #### L 500.2500, L100.0500 #### [facility] [address] [place], [address] Platelet mean volume (Bld) [Entitic vol] 9.7 fL Normal 6.2-12.0 [facility] Comment on above: Order Comment: 412.2 Performed By: #### L 500.2500, L100.0500 #### [facility] [address] [place], [address] Platelets (Bld) [#/Vol] 225 10*3/uL Normal 150-450 [facility] Comment on above: Order Comment: 412.2 Performed By: #### L 500.2500, L100.0500 #### [facility] [address] [place], [address] RBC (Bld) [#/Vol] 2.79 10*6/uL Low 4.6-6.2 [facility] Comment on above: Order Comment: 412.2 Performed By: #### L 500.2500, L100.0500 #### [facility] [address] [place], [address] RDW SD 45.1 fl High 35.1-43.9 [facility] Comment on above: Order Comment: 412.2 Performed By: #### L 500.2500, L100.0500 #### [facility] [address] [place], [address] WBC (Bld) [#/Vol] 7.2 10*3/uL Normal 4.4-11.0 [facility] Comment on above: Order Comment: 412.2 Performed By: #### L 500.2500, L100.0500 #### [facility] [address] [place], [address] [facility] Telephone (VASSMD) -- JOSÉ MANUEL ASHTON ([id number]) 1960 M [facility] Date Time Provider Department 12/24/24 NUSRAT ALATORRE VASSMD During your visit today, we recorded the following information about you: Amina Smiley 12/24/2024 9:57 AM Signed Patient's marketing operations associate, Dr. Dudley, is referring patient to Dr. Alatorre for fistula placement. Patient's care facility is going to reach out to schedule appointment. Dr. Dudley's office is requesting information from patient's future appointments with Dr. Alatorre to be faxed to them at: [phone] attn: dialysis. Thank you Allergies As of [...] vomiting [R11.2] more content not included)... Normal [facility] [id number] 11-29-2024 [id number] [facility] [place] [address] [phone] Returning to Facility Normal [facility] [phone] Next Site of Care Admission Date: 11/25/2024 12:06 PM Patient Name: JOSÉ MANUEL ASHTON Location: [address]/[facility] [id number] Date of : 1960 -- Placement Information -- Referral Type:Fpc/SNF - Return Referral ID:[id number] Provider Name:[facility] Address 1:[address] [place] [address] Address 2: City:[place] Selection Factors:Returning to Facility State:[facility] [phone] Confirmed pickup corrina e of 330PM by transport [employer] at phone number [phone]. Location of facility drop off is [facility]URN BACK TO [facility]. Facility notified via [employer], [facility] notified on secure chat. [facility] [phone] Transport requested 330 in [employer]. Awaiting time confirmation. [facility] [phone] Discharge med list transmitted to [facility] request. Normal [facility] [phone] Sent updated notes t o [facility] [place] via [facility] per [facility] request. Await review and response regarding ability to accept. [facility] notified. Normal [facility] CBC W Auto Differential pane l (Bld)on 11-29-2024 Basophils (Bld) [#/Vol] 0 10*3/uL 0.0 - 0.2 10*3/uL [facility] Basophils/100 WBC (Bld) 0.4 % 0.0 - 2.0 % [facility] Eosinophils (Bld) [#/Vol] 0.4 10*3/uL 0.0 - 0.5 10*3/uL [facility] Eosinophils/100 WBC (Bld) 7.2 % High 0.0 - 6.0 % [facility] Erythrocyte distribution width (RBC) [Ratio] 12.8 % 11.5 - 15.0 % [facility] Hematocrit (Bld) [Volume fraction] 26.1 % Low 40.0 - 52.0 % [facility] Hemoglobin (Bld) [Mass/Vol] 8.2 g/dL Low 13.0 - 18.0 g/dL [facility] Immature granulocytes (Bld) [#/Vol] 0.1 10*3/uL High NINF - 0.1 10*3/uL [facility] Immature granulocytes/100 WBC (Bld) 1.7 % 0.0 - 2.0 % [facility] Interpretation and review of laboratory results Abnormal [facility] Lymphocytes (Bld) [#/Vol] 1.5 10*3/uL 1.0 - 4.3 10*3/uL [facility] Lymphocytes/100 WBC (Bld) 28.5 % 15.0 - 45.0 % [facility] MCH (RBC) [Entitic mass] 29.4 pg 26.0 - 34.0 pg [facility] MCHC (RBC) [Mass/Vol] 31.4 % 30.5 - 36.0 % [facility] MCV (RBC) [Entitic vol] 93.5 fL 77.0 - 99.0 fL [facility] Monocytes (Bld) [#/Vol] 0.6 10*3/uL 0.0 - 0.9 10*3/uL [facility] Monocytes/100 WBC (Bld) 11.8 % 5.0 - 13.0 % [facility] Neutrophils (Bld) [#/Vol] 2.6 10*3/uL 1.8 - 7.5 10*3/uL [facility] Neutrophils/100 WBC (Bld) 50.4 % 38.0 - 82.0 % [facility] Nucleated RBC/100 WBC (Bld) [Ratio] 0 % [facility] Platelet mean volume (Bld) [Entitic vol] 8.7 fL Low 9.0 - 12.7 fL [facility] Platelets (Bld) [#/Vol] 222 10*3/uL 140 - 440 10*3/uL [facility] RBC (Bld) [#/Vol] 2.79 10*6/uL Low 4.40 - 5.9 0 10*6/uL [facility] WBC (Bld) [#/Vol] 5.2 10*3/uL 3.6 - 10.7 10*3/uL [facility] CBC WITH AUTO DIFFERENTIALon 11-29-2024 Basophils (Bld) [#/Vol] 0.0 10*3/uL Normal 0.0-0.2 [facility] [place] [facility] Comment on above: Performed By: #### L [id number] ####Data Operations Manager: JAQUELIN MO ([id number])[facility] ([facility])[address] [place] [address] Basophils/100 WBC (Bld) 0.4 % Normal 0.0-2.0 [facility] Comment on above: Performed By: #### L [id number] ####Data Operations Manager: JAQUELIN MO ([id number])[facility] ([facility])[address] Eosinophils (Bld) [#/Vol] 0.4 10*3/uL Normal 0.0-0.5 [facility] Comment on above: Performed By: #### L [id number] ####Data Operations Manager: JAQUELIN MO ([id number])[facility] ([facility])[address] Eosinophils/100 WBC (Bld) 7.2 % High 0.0-6.0 [facility] Comment on above: Performed By: #### L [id number] ####Data Operations Manager: JAQUELIN MO ([id number])[facility] [place])[address] Erythrocyte distribution width (RBC) [Ratio] 12.8 % Normal 11.5-15.0 [facility] Comment on above: Performed By: #### L [id number] ####Data Operations Manager: JAQUELIN MO ([id number])[facility] [place] ([facility])[address] Hematocrit (Bld) [Volume fraction] 26.1 % Low 40.0-52.0 [facility] Comment on above: Performed By: #### L [id number] ####Data Operations Manager: JAQUELIN MO ([id number])[facility] [place] ([facility])[address] Hemoglobin (Bld) [Mass/Vol] 8.2 g/dL Low 13.0-18.0 [facility] Comment on above: Performed By: #### L [id number] ####Data Operations Manager: JAQUELIN MO ([id number])[facility] [place] ([facility])[address] IMMATURE GRANS % 1.7 % Normal 0.0-2.0 [facility] Comment on above: Performed By: #### L [id number] ####Data Operations Manager: JAQUELIN MO ([id number])[facility] [place] ([facility])[address] IMMATURE GRANS ABSOLUTE 0.1 10*3/uL High <0.1 [facility] Comment on above: Performed By: #### L [id number] ####Data Operations Manager: JAQUELIN MO ([id number])[facility])[address] Lymphocytes (Bld) [#/Vol] 1.5 10*3/uL Normal 1.0-4.3 [facility] Comment on above: Performed By: #### L [id number] ####Data Operations Manager: JAQUELIN RASCONYOEL ([id number])[facility] [place] ([facility])[address] Lymphocytes/100 WBC (Bld) 28.5 % Normal 15.0-45.0 [facility] Comment on above: Performed By: #### L [id number] ####Data Operations Manager: JAQUELIN MO ([id number])[facility] [place] ([facility])[address] MCH (RBC) [Entitic mass] 29.4 pg Normal 26.0-34.0 [facility] Comment on above: Performed By: #### L [id number] ####Data Operations Manager: JAQUELIN MO ([id number])[facility] [place] ([facility])[address] MCHC 31.4 % Normal 30.5-36.0 [facility] Comment on above: Performed By: #### L [id number] ####Data Operations Manager: JAQUELIN MO ([id number])[facility] [place] ([facility])[address] [place] [address] MCV (RBC) [Entitic vol] 93.5 fL Normal 77.0-99.0 [facility] Comment on above: Performed By: #### L [id number] ####Data Operations Manager: JAQUELIN MO ([id number])[facility] [place] ([facility])[address] Monocytes (Bld) [#/Vol] 0.6 10*3/uL Normal 0.0-0.9 [facility] Comment on above: Performed By: #### L [id number] ####Data Operations Manager: JAQUELIN MO ([id number])[facility] [place] ([facility])[address] Monocytes/100 WBC (Bld) 11.8 % Normal 5.0-13.0 [facility] Comment on above: Performed By: #### L [id number] ####Data Operations Manager: JAQUELIN MO ([id number])[facility] ([facility])[address] NEUTROPHILS ABSOLUTE 2.6 10*3/uL Normal 1.8-7.5 [facility] Comment on above: Performed By: #### L [id number] ####Data Operations Manager: JAQUELIN MO ([id number])[facility] [place] [facility])[address] Neutrophils/100 WBC (Bld) 50.4 % Normal 38.0-82.0 [facility] Comment on above: Performed By: #### L [id number] ####Data Operations Manager: JAQUELIN MO ([id number])[facility] [place] ([facility])[address] NRBC 0.0 /100 WBCs Normal 0.0-2.0 [facility] Comment on above: Performed By: #### L [id number] ####Data Operations Manager: JAQUELIN MO ([id number])[facility] [place] ([facility])[address] Platelet mean volume (Bld) [Entitic vol] 8.7 fL Low 9.0-12.7 [facility] Comment on above: Performed By: #### L [id number] ####Data Operations Manager: JAQUELIN MO ([id number])[facility] [place] (SB[facility])[address] [place] [address] [place] Platelets (Bld) [#/Vol] 222 10*3/uL Normal 140-440 [facility] Comment on above: Performed By: #### L [id number] ####Data Operations Manager: JAQUELIN MO ([id number])[facility] [place] (SB[facility])[address] [place] [address] [place] RBC (Bld) [#/Vol] 2.79 10*6/uL Low 4.40-5.90 [facility] Comment on above: Performed By: #### L [id number] ####Data Operations Manager: JAQUELIN MO ([id number])[facility] [place] (SB[facility])[address] WBC (Bld) [#/Vol] 5.2 10*3/uL Normal 3.6-10.7 [facility] Comment on above: Performed By: #### L [id number] ####Data Operations Manager: JAQUELIN MO ([id number])[facility] [place] (SB[facility])[address] COMPREHENSIVE METABOLIC PANE Tommie 11-29-2024 Albumin [Mass/Vol] 2.7 g/dL Low 3.4-4.8 [facility] Comment on above: Performed By: #### L [id number] ####Data Operations Manager: JAQUELIN MO ([id number])[facility] [place] (SB[facility])[address] ALP [Catalytic activity/Vol] 109 U/L Normal 40-150 [facility] Comment on above: Performed By: #### L [id number] ####Data Operations Manager: JAQUELIN MO ([id number])[facility] [place] (SB[facility])[address] ALT [Catalytic activity/Vol] 36 U/L Normal <40 [facility] Comment on above: Performed By: #### L [id number] ####Data Operations Manager: JAQUELIN MO ([id number])[facility] [place] (SB[facility])[address] Anion gap [Moles/Vol] 9 mmol/L Normal 3-13 [facility] Comment on above: Performed By: #### L [id number] ####Data Operations Manager: JAQUELIN MO ([id number])[facility] [place] (SB[facility])[address] AST [Catalytic activity/Vol] 22 U/L Normal <34 [facility] Comment on above: Performed By: #### L [id number] ####Data Operations Manager: JAQUELIN MO ([id number])[facility] [place] (SB[facility])[address] Bilirubin [Mass/Vol] 0.3 mg/dL Normal <1.2 [facility] Comment on above: Performed By: #### L [id number] ####Data Operations Manager: JAQUELIN MO ([id number])[facility] [place] (SB[facility])[address] Calcium [Mass/Vol] 8.9 mg/dL Normal 8.8-10.0 [facility] Comment on above: Performed By: #### L [id number] ####Data Operations Manager: JAQUELIN MO ([id number])[facility] (SB[facility])[address] Chloride [Moles/Vol] 109 mmol/L High 98-107 [facility] Comment on above: Performed By: #### L [id number] ####Data Operations Manager: JAQUELIN MO ([id number])[facility] (SB[facility])[address] CO2 [Moles/Vol] 26 mmol/L Normal 23-31 [facility] Comment on above: Performed By: #### L [id number] ####Data Operations Manager: JAQUELIN MO ([id number])[facility] (SBHLAB)[address] [place] [address] [place] Creatinine [Mass/Vol] 5.79 mg/dL High 0.72-1.25 [facility] Comment on above: Performed By: #### L [id number] ####Data Operations Manager: JAQUELIN MO ([phone])[facility] (SB[facility])[address] GLOMERULAR FILTRATION RATE ML/MIN/1.73 SQ M.PREDICTED 10.2 mL/min/1.73m*2 Low >60.0 [facility] Comment on above: Result Comment: Calc ulation based on the Chronic Kidney Disease Epidemiology Collaboration (CKD-EPI) equation refit without adjustment for race Performed By: #### L [id number] ####Data Operations Manager: JAQUELIN MO ([id number])[facility] [place] (SBHLAB)[address] Glucose [Mass/Vol] 166 mg/dL High 82-115 [facility] Comment on above: Performed By: #### L [id number] ####Data Operations Manager: JAQUELIN MO ([id number])[facility] (SBHLAB)[address] Potassium [Moles/Vol] 5.1 mmol/L Normal 3.5-5.1 [facility] Comment on above: Result Comment: [facility] potassium values may be up to 0.5 mmol/L lower than serum values. Performed By: #### L [id number] ####Data Operations Manager: JAQUELIN MO ([id number])[facility] (SB[facility])[address] Protein [Mass/Vol] 5.9 g/dL Low 6.4-8.3 [facility] Comment on above: Performed By: #### L [id number] ####Data Operations Manager: JAQUELIN MO ([id number])[facility] (SBHLAB)[address] Sodium [Moles/Vol] 144 mmol/L Normal 136-145 [facility] Comment on above: Performed By: #### L [id number] ####Data Operations Manager: JAQUELIN MO ([id number])[facility] ([facility])[address] Urea nitrogen [Mass/Vol] 58 mg/dL High 9-23 [facility] Comment on above: Performed By: #### L [id number] ####Data Operations Manager: JAQUELIN MO ([id number])[facility] (SBHLAB)[address] Comprehensive metabolic 1998 panelon 08-29-2025 Albumin [Mass/Vol] 2.7 g/dL Low 3.4 - 4.8 g/dL [facility] ALP [Catalytic activity/Vol] 109 U/L 40 - 150 U/L [facility] ALT [Catalytic activity/Vol] 36 U/L NINF - 40 U/L [facility] Anion gap [Moles/Vol] 9 mmol/L 3 - 13 mmol/L [facility] AST [Catalytic activity/Vol] 22 U/L NINF - 34 U/L [facility] Bilirubin [Mass/Vol] 0.3 mg/dL NINF - 1.2 mg/dL [facility] Calcium [Mass/Vol] 8.9 mg/dL 8.8 - 10. 0 mg/dL [facility] Chloride [Moles/Vol] 109 mmol/L High 98 - 10 7 mmol/L [facility] CO2 [Moles/Vol] 26 mmol/L 23 - 31 mmol/L [facility] Creatinine [Mass/Vol] 5.79 mg/dL High 0.72 - 1.25 mg/dL [facility] GFR/1.73 sq M.predicted (S/P/Bld) [Vol rate/Area] 10.2 mL/min Low - PINF [facility] Comment on above: Calculation based on the Chronic Kidney Disease Epidemiology Collaboration (CKD-EPI) equation refit without adjustment for race Glucose [Mass/Vol] 166 mg/dL High 82 - 115 mg/dL [facility] Interpretation and review of laboratory results Abnormal [facility] Potassium [Moles/Vol] 5.1 mmol/L 3.5 - 5.1 mmol/L [facility] Comment on above: Plasma potassium reji ues may be up to 0.5 mmol/L lower than serum values. Protein [Mass/Vol] 5.9 g/dL Low 6.4 - 8.3 g/dL [facility] Sodium [Moles/Vol] 144 mmol/L 136 - 145 mmol/L [facility] Urea nitrogen [Mass/Vol] 58 mg/dL High 9 - 23 mg/dL [facility] Laboratory - Chemistry and C hemistry - challengeon 11-29-2024 Glucose [Mass/Vol] 196 mg/dL High 70 - 100 mg/dL [facility] Glucose [Mass/Vol] 140 mg/dL High 70 - 100 mg/dL [facility] No Panel Informationon 11-29 Interpretation and review of laboratory results Abnormal [facility] Performed by: Heatherantonette Daly, [address] [facility] [address] CLIA ID: [id number] [facility] Interpretation and review of laboratory results Abnormal [facility] Performed by: Heatherantonette Daly, [address] [facility] [address] CLIA ID: [id number] [facility] Nursing Noteon 11-29-2024 Nursing Note 2.4L removed with tx , UF goal adjusted for BP Tolerated well Patient Name: José Manuel Ashton Patient : 1960 Acct: [id number] Date of Admission: 11/25/2024 Room/Bed: [facility] A Code Status: Full Code Allergies: [...] Regular Other (Comment) None (Room air) Diminished [place] Warm;Dry Good Soft;Rounded Active Generalized Non-pitting 11/29/24 1346 Alert (0) x4 Regular Other (Comment) None (Room air) -- [place] Warm;Dry Good Soft;Rounded Active Generalized Non-pitting Labs [...] - Before each treatment: Dialysis Machine No.: [id number] RO Machine Number: [id number] Dialyzer Lot No.: [id number] Tubing Lot Number: [id number] [employer] Secure: Yes Venous Parameters Set: Yes Arterial Parameters Set: Yes NS Bag: Yes Saline Line Double Clamped: Yes Dialyzer: Nipro Prime Volume (mL): 200 mL RO Machine Number: [id number] RO Machine Log Sheet Completed: Yes Machine Alarm Self Test: Completed, Passed (11/29/24 0932) Air Foam Detector: Tested, Proper Function, pH Reading Extracorporeal Circuit Tested for Integrity: Yes Machine Conductivity: 13.4 Manual Conductivity: 13.6 Manual Ph: 7.2 Bleach Test (Neg): Yes Bath Temperature: 36 ?C (96.8 ?F) Conductivity Meter Serial #: [id number] Machine Functioning Alarm Free? Yes Dialysis Bath: K+ (Potassium): 2 Ca+ (Calcium): 2.5 Na+ (Sodium): 137 HCO3 (Bicarb): 35 Bicarbonate Concentrate Lot No.: [id number] Acid Concentrate Lot No.: [id number] Chlorine Testing - Before each treatment and [...] acute distres (more content not included)... Normal [facility] Progress Noteon 11-29-2024 Progress Note Department of [employer] Medicine Division of Endocrinology, Diabetes, & Metabolism Endocrinology Note Patient Name: José Manuel Ashton : 1960 AGE: 63 y.o. Room/Bed: [facility] A Admission Date: 11/25/2024 Visit Date: 11/29/2024 Reason for Endocrine Consult: DM/Pt on U300 insulin Provider/Team Requesting Consult: Dr. Hills PCP: Brittaney Garcia MD [employer]pt [employer] Practitioner: Yes [facility] ASSESSMENT: Type 2 diabetes mellitus with hyperglycemia, with rn long term care insulin use Lethargy and chills HTN DM2 [...] low dose sliding scale Outpt Follow Up-- [facility] Endocrinology SUBJECTIVE/HPI: CHIEF COMPLAINT: Chief Complaint Patient presents with Altered Mental Status Pt presents to ED via EMS from [facility] for responding slowly and indicates he is cold. José Manuel Ashton is a 63 yo male who presented to ED from [facility] Dialysis center with Tremor, chills and delayed [...] Concerned he will receive pain meds at assisted BG controlled no change in doses 11/28/2024 [...] in [facility] not sure of insulin doses at [facility] - Does not give his own injections. Reports blood sugars are checked before meals but not sure what blood sugar levels are. Carb controlled diet Patient reports tremors, chills Feels unsteady on feet. PT was stopped at [facility] per patient. Patient on IV [...] Daily PRN cyclob (more content not included)... [facility] Progress Note OCCUPATIONAL THERAPY [facility]'s Name/MRN: José Manuel Ashton ([id number]) Date: 11/29/2024 Pt intended for OT treatment this date. Upon arrival, pt completing dialysis at this time and unavailable for therapy treatment. Will continue to follow and attempt as appropriate this admission. Emerson Mendoza, OT [facility] [id number] 11-28-2024 [id number] Sent updated notes t o return back to [facility] [place] via [facility] per TCC request. Await review and response regarding ability to accept. [facility] notified. [facility] CBC W Auto Differential pane l (Bld)on 11-28-2024 Basophils (Bld) [#/Vol] 0 10*3/uL 0.0 - 0.2 10*3/uL [facility] Basophils/100 WBC (Bld) 0.4 % 0.0 - 2.0 % [facility] Eosinophils (Bld) [#/Vol] 0.3 10*3/uL 0.0 - 0.5 10*3/uL [facility] Eosinophils/100 WBC (Bld) 5.9 % 0.0 - 6.0 % [facility] Erythrocyte distribution width (RBC) [Ratio] 12.8 % 11.5 - 15.0 % [facility] Hematocrit (Bld) [Volume fraction] 26.4 % Low 40.0 - 52.0 % [facility] Hemoglobin (Bld) [Mass/Vol] 8.5 g/dL Low 13.0 - 18.0 g/dL [facility] Immature granulocytes (Bld) [#/Vol] 0.1 10*3/uL High NINF - 0.1 10*3/uL [facility] Immature granulocytes/100 WBC (Bld) 1.4 % 0.0 - 2.0 % [facility] Interpretation and review of laboratory results Abnormal [facility] Lymphocytes (Bld) [#/Vol] 1.3 10*3/uL 1.0 - 4.3 10*3/uL [facility] Lymphocytes/100 WBC (Bld) 25.9 % 15.0 - 45.0 % [facility] MCH (RBC) [Entitic mass] 29.5 pg 26.0 - 34.0 pg [facility] MCHC (RBC) [Mass/Vol] 32.2 % 30.5 - 36.0 % [facility] MCV (RBC) [Entitic vol] 91.7 fL 77.0 - 99.0 fL [facility] Monocytes (Bld) [#/Vol] 0.5 10*3/uL 0.0 - 0.9 10*3/uL [facility] Monocytes/100 WBC (Bld) 10.2 % 5.0 - 13.0 % [facility] Neutrophils (Bld) [#/Vol] 2.9 10*3/uL 1.8 - 7.5 10*3/uL [facility] Neutrophils/100 WBC (Bld) 56.2 % 38.0 - 82.0 % [facility] Nucleated RBC/100 WBC (Bld) [Ratio] 0 % [facility] [employer] Platelet mean volume (Bld) [Entitic vol] 8.8 fL Low 9.0 - 12.7 fL [facility] Platelets (Bld) [#/Vol] 227 10*3/uL 140 - 440 10*3/uL [facility] RBC (Bld) [#/Vol] 2.88 10*6/uL Low 4.40 - 5.9 0 10*6/uL [facility] WBC (Bld) [#/Vol] 5.1 10*3/uL 3.6 - 10.7 10*3/uL [facility] CBC WITH AUTO DIFFERENTIALon 11-28-2024 Basophils (Bld) [#/Vol] 0.0 10*3/uL Normal 0.0-0.2 [facility] Comment on above: Performed By: #### L [id number] ####Data Operations Manager: JAQUELIN MO ([id number])[facility] [place] (SBHLAB)[address] Basophils/100 WBC (Bld) 0.4 % Normal 0.0-2.0 [facility] Comment on above: Performed By: #### L [id number] ####Data Operations Manager: JAQUELIN MO ([id number])[facility] [place] (SBHLAB)[address] Eosinophils (Bld) [#/Vol] 0.3 10*3/uL Normal 0.0-0.5 [facility] Comment on above: Performed By: #### L [id number] ####Data Operations Manager: JAQUELIN MO ([id number])[facility] [place] (SB[facility])[address] Eosinophils/100 WBC (Bld) 5.9 % Normal 0.0-6.0 [facility] Comment on above: Performed By: #### L [id number] ####Data Operations Manager: JAQUELIN MO ([id number])[facility] [place] (SB[facility])[address] Erythrocyte distribution width (RBC) [Ratio] 12.8 % Normal 11.5-15.0 [facility] Comment on above: Performed By: #### L [id number] ####Data Operations Manager: JAQUELIN MO ([id number])[facility] [place] (SBHLAB)[address] [place] [address] Hematocrit (Bld) [Volume fraction] 26.4 % Low 40.0-52.0 [facility] Comment on above: Performed By: #### L [id number] ####Data Operations Manager: JAQUELIN MO ([id number])[facility] [place] (SB[facility])[address] Hemoglobin (Bld) [Mass/Vol] 8.5 g/dL Low 13.0-18.0 [facility] Comment on above: Performed By: #### L [id number] ####Data Operations Manager: JAQUELIN MO ([phone])[facility] [place] ([facility])[address] IMMATURE GRANS % 1.4 % Normal 0.0-2.0 [facility] Comment on above: Performed By: #### L [id number] ####Data Operations Manager: JAQUELIN MO ([id number])[facility] [place] ([facility])[address] IMMATURE GRANS ABSOLUTE 0.1 10*3/uL High <0.1 [facility] Comment on above: Performed By: #### L [id number] ####Data Operations Manager: JAQUELIN MO ([id number])[facility] (SB[facility])[address] Lymphocytes (Bld) [#/Vol] 1.3 10*3/uL Normal 1.0-4.3 [facility] Comment on above: Performed By: #### L [id number] ####Data Operations Manager: JAQUELIN MO ([id number])[facility] (SBHL[facility])[address] Lymphocytes/100 WBC (Bld) 25.9 % Normal 15.0-45.0 [facility] Comment on above: Performed By: #### L [id number] ####Data Operations Manager: JAQUELIN MO ([id number])[facility] [place] ([facility])[address] MCH (RBC) [Entitic mass] 29.5 pg Normal 26.0-34.0 [facility] Comment on above: Performed By: #### L [id number] ####Data Operations Manager: JAQUELIN MO ([id number])[facility] (SB[facility])[address] MCHC 32.2 % Normal 30.5-36.0 [facility] Comment on above: Performed By: #### L [id number] ####Data Operations Manager: JAQUELIN MO ([id number])[facility] (SBHLAB)[address] [place] [address] [place] MCV (RBC) [Entitic vol] 91.7 fL Normal 77.0-99.0 [facility] Comment on above: Performed By: #### L [id number] ####Data Operations Manager: JAQUELIN BROWNOliviaYOEL ([id number])[facility] [place] (SBHLAB)[address] Monocytes (Bld) [#/Vol] 0.5 10*3/uL Normal 0.0-0.9 [facility] Comment on above: Performed By: #### L [id number] ####Data Operations Manager: JAQUELIN BROWNBALAJI ([id number])[facility] [place] ([facility])[address] Monocytes/100 WBC (Bld) 10.2 % Normal 5.0-13.0 [facility] Comment on above: Performed By: #### L [id number] ####Data Operations Manager: JAQUELIN ARSCONYOEL ([id number])[facility] [place] ([facility])[address] NEUTROPHILS ABSOLUTE 2.9 10*3/uL Normal 1.8-7.5 [facility] Comment on above: Performed By: #### L [id number] ####Data Operations Manager: JAQUELIN RASCONYOEL ([id number])[facility] [place] (SB[facility])[address] [place] [address] Neutrophils/100 WBC (Bld) 56.2 % Normal 38.0-82.0 [facility] Comment on above: Performed By: #### L [id number] ####Data Operations Manager: JAQUELIN BROWNBALAJI ([id number])[facility] [place] ([facility])[address] NRBC 0.0 /100 WBCs Normal 0.0-2.0 [facility] Comment on above: Performed By: #### L [id number] ####Data Operations Manager: JAQUELIN RASCONYOEL ([id number])[facility] (SB[facility])[address] Platelet mean volume (Bld) [Entitic vol] 8.8 fL Low 9.0-12.7 [facility] Comment on above: Performed By: #### L [id number] ####Data Operations Manager: JAQUELIN MO ([id number])[facility] [place] (SBHLAB)[address] Platelets (Bld) [#/Vol] 227 10*3/uL Normal 140-440 [facility] Comment on above: Performed By: #### L [id number] ####Data Operations Manager: JAQUELIN MO ([id number])[facility] [place] ([facility])[address] RBC (Bld) [#/Vol] 2.88 10*6/uL Low 4.40-5.90 [facility] Comment on above: Performed By: #### L [id number] ####Data Operations Manager: JAQUELIN MO ([id number])[facility] [place] ([facility])[address] WBC (Bld) [#/Vol] 5.1 10*3/uL Normal 3.6-10.7 [facility] Comment on above: Performed By: #### L [id number] ####Data Operations Manager: JAQUELIN MO ([phone])[facility] [place] ([facility])[address] COMPREHENSIVE METABOLIC PANE Tommie 11-28-2024 Albumin [Mass/Vol] 2.8 g/dL Low 3.4-4.8 [facility] Comment on above: Performed By: #### L AB17, [id number] ####Data Operations Manager: JAQUELIN MO ([id number])[facility] [place] ([facility])[address] ALP [Catalytic activity/Vol] 111 U/L Normal 40-150 [facility] Comment on above: Performed By: #### L AB17, [id number] ####Data Operations Manager: JAQUELIN MO ([id number])[facility] [place] (SB[facility])[address] [place] [address] [place] ALT [Catalytic activity/Vol] 34 U/L Normal <40 [facility] Comment on above: Performed By: #### L AB17, [id number] ####Data Operations Manager: JAQUELIN MO ([id number])[facility] [place] ([facility])[address] Anion gap [Moles/Vol] 10 mmol/L Normal 3-13 [facility] Comment on above: Performed By: #### L AB17, [id number] ####Data Operations Manager: JAQUELIN MO ([id number])[facility] ([facility])[address] AST [Catalytic activity/Vol] 28 U/L Normal <34 [facility] Comment on above: Performed By: #### L AB17, [id number] ####Data Operations Manager: JAQUELIN MO ([id number])[facility] [place] ([facility])[address] Bilirubin [Mass/Vol] 0.4 mg/dL Normal <1.2 [facility] Comment on above: Performed By: #### L AB17, [id number] ####Data Operations Manager: JAQUELIN MO ([id number])[facility] ([facility])[address] Calcium [Mass/Vol] 8.8 mg/dL Normal 8.8-10.0 [facility] Comment on above: Performed By: #### L AB17, [id number] ####Data Operations Manager: JAQUELIN MO ([phone])[facility] [place] (SB[facility])[address] [place] [address] [place] Chloride [Moles/Vol] 106 mmol/L Normal 98-107 [facility] Comment on above: Performed By: #### L AB17, [id number] ####Data Operations Manager: JAQUELIN MO ([id number])[facility] (SB[facility])[address] [place] [address] [place] CO2 [Moles/Vol] 27 mmol/L Normal 23-31 [facility] Comment on above: Performed By: #### L AB17, [id number] ####Data Operations Manager: JAQUELIN RASCONYOEL ([id number])[facility] (SB[facility])[address] Creatinine [Mass/Vol] 4.87 mg/dL High 0.72-1.25 [facility] Comment on above: Performed By: #### L AB17, [id number] ####Data Operations Manager: JAQUELIN BROWNBALAJI ([id number])[facility] (SB[facility])[address] GLOMERULAR FILTRATION RATE ML/MIN/1.73 SQ M.PREDICTED 12.6 mL/min/1.73m*2 Low >60.0 [facility] Comment on above: Result Comment: Calc ulation based on the Chronic Kidney Disease Epidemiology Collaboration (CKD-EPI) equation refit without adjustment for race Performed By: #### L AB17, [id number] ####Data Operations Manager: JAQUELIN RASCONYOEL ([id number])[facility] (SB[facility])[address] Glucose [Mass/Vol] 135 mg/dL High 82-115 [facility] Comment on above: Performed By: #### L AB17, [id number] ####Data Operations Manager: JAQUELIN BROWNBALAJI ([id number])[facility] (SBHLAB)[address] [place] [address] [place] Potassium [Moles/Vol] 4.7 mmol/L Normal 3.5-5.1 [facility] Comment on above: Result Comment: [facility] potassium values may be up to 0.5 mmol/L lower than serum values. Performed By: #### L AB17, [id number] ####Data Operations Manager: JAQUELIN RASCONYOEL ([id number])[facility] (SBHLAB)[address] Protein [Mass/Vol] 6.1 g/dL Low 6.4-8.3 [facility] Comment on above: Performed By: #### L AB17, [id number] ####Data Operations Manager: JAQUELINGAYLE MO ([id number])[facility] (SBHLAB)[address] Sodium [Moles/Vol] 143 mmol/L Normal 136-145 [facility] Comment on above: Performed By: #### L AB17, [id number] ####Data Operations Manager: JAQUELIN MO ([id number])[facility] (SBHLAB)[address] Urea nitrogen [Mass/Vol] 43 mg/dL High 9-23 [facility] Comment on above: Performed By: #### L AB17, [id number] ####Data Operations Manager: JAQUELIN MO ([id number])[facility] (SBHLAB)[address] Comprehensive metabolic 1998 panelOrdered By: Gina Gonsales on 11-28-2024 Albumin [Mass/Vol] 2.8 g/dL Low 3.4 - 4.8 g/dL [facility] ALP [Catalytic activity/Vol] 111 U/L 40 - 150 U/L [facility] ALT [Catalytic activity/Vol] 34 U/L NINF - 40 U/L [facility] Anion gap [Moles/Vol] 10 mmol/L 3 - 13 mmol/L [facility] AST [Catalytic activity/Vol] 28 U[facility]L [facility] [facility] Bilirubin [Mass/Vol] 0.4 mg/dL NINF - 1.2 mg/dL [facility] Calcium [Mass/Vol] 8.8 mg/dL 8.8 - 10. 0 mg/dL [facility] Chloride [Moles/Vol] 106 mmol/L 98 - 10 7 mmol/L [facility] CO2 [Moles/Vol] 27 mmol/L 23 - 31 mmol/L [facility] Creatinine [Mass/Vol] 4.87 mg/dL High 0.72 - 1.25 mg/dL [facility] GFR/1.73 sq M.predicted (S/P/Bld) [Vol rate/Area] 12.6 mL/min Low - PINF [facility] Comment on above: Calculation based on the Chronic Kidney Disease Epidemiology Collaboration (CKD-EPI) equation refit without adjustment for race Glucose [Mass/Vol] 135 mg/dL High 82 - 115 mg/dL [facility] Interpretation and review of laboratory results Abnormal [facility] Potassium [Moles/Vol] 4.7 mmol/L 3.5 - 5.1 mmol/L [facility] Comment on above: Plasma potassium reji ues may be up to 0.5 mmol/L lower than serum values. Protein [Mass/Vol] 6.1 g/dL Low 6.4 - 8.3 g/dL [facility] Sodium [Moles/Vol] 143 mmol/L 136 - 145 mmol/L [facility] Urea nitrogen [Mass/Vol] 43 mg/dL High 9 - 23 mg/dL [facility] Laboratory - Chemistry and C hemistry - challengeon 11-28-2024 Glucose [Mass/Vol] 119 mg/dL High 70 - 100 mg/dL [facility] Glucose [Mass/Vol] 131 mg/dL High 70 - 100 mg/dL [facility] Glucose [Mass/Vol] 137 mg/dL High 70 - 100 mg/dL [facility] TSH Qn 3.04 m[IU]/L [facility] Glucose [Mass/Vol] 128 mg/dL High 70 - 100 mg/dL [facility] Laboratory - Drug toxicology on 11-28-2024 Vancomycin trough [Mass/Vol] 26.5 ug/mL [facility] No Panel Informationon 11-28 Interpretation and review of laboratory results Abnormal [facility] Performed by: Taisha Floyd [facility] [address] CLIA ID: [id number] [facility] Interpretation and review of laboratory results Abnormal [facility] Performed by: Taisha Floyd [facility] [address] CLIA ID: [id number] [facility] Interpretation and review of laboratory results Abnormal [facility] Performed by: Taisha Floyd [facility] [address] CLIA ID: [id number] [facility] Interpretation and review of laboratory results Abnormal [facility] Performed by: Taisha Floyd [facility] [address] CLIA ID: [id number] [facility] Progress Noteon 11-28-2024 Progress Note [...] muscle mass loss Fluid Accumulation: Mild Generalized Blast Hole Driller Strength: Not Performed Nutrition Assessment: Pt is a 63 y/o male admitted to [facility] with complaints of Chills, weakness, and lethargy, no c/o CP, cough, nausea, vomiting. Respiratory panel wnl, COVID negative. Pt has ESRD on HD- on a Monday through Monday schedule at [facility]. Pt reports having a fair to decreased [...] On: Kcal/kg Weight Used for Energy Requirements: [place] Weight for Energy Calculation (kg): 75 kg Total Energy Requirements (kcals/day): 2739-3795 kcals (25-30 kcals/kg) Weight Used for Protein Requirements: [place] Weight in Kg Used for Protein Requirements: [...] lb) (07/10/24) % Weight Change (Calculated): 4.3 [place] Body Weight (lbs) (Calculated): 166 lbs [place] Body Weight (Kg) (Calculated): 75 kg % [place] Body Weight (Calculated): 159.6 % BMI (kg/m2) [...] Oral Nutrition Supplement Arlin Juárez RD Contact: *[phone] or via Secure Chat [facility] Progress Note OCCUPATIONAL THERAPY [facility] Treatment Note Name/MRN: José Manuel sAhton ([id number]) Date of : 1960 Age: 63 y.o. Room/Bed: B4-305/B4-316 A Visit #: 1 out of 7 Discharge Recommendation: Mcfp Facility Equipment Needed: No Assessment Patient was [...] mobility. (Progressing) (more content not included)... Normal [facility] Progress Note Department of Machine Stone Polisher al Medicine Division of Endocrinology, Diabetes, & Metabolism Endocrinology Note Patient Name: José Manuel Ashton : 1960 AGE: 63 y.o. [facility] Ad[facility] Date: 11/25/2024 Visit Date: 11/28/2024 Reason for Endocrine Consult: DM/Pt on U300 insulin Provider/Team Requesting Consult: Dr. Hills PCP: Brittaney Garcia MD [employer]pt [employer] Practitioner: Yes [facility] ASSESSMENT: Type 2 diabetes mellitus with hyperglycemia, with rn long term care insulin use Lethargy and chills HTN DM2 [...] low dose sliding scale Outpt Follow Up-- [facility] Endocrinology SUBJECTIVE/HPI: CHIEF COMPLAINT: Chief Complaint Patient presents with Altered Mental Status Pt presents to ED via EMS from [facility] for responding slowly and indicates he is cold. José Manuel Ashton is a 63 yo male who presented to ED from [facility] Dialysis center with Tremor, chills and delayed [...] in bed Patient reports he resides at [facility] Patient not sure of insulin doses at [facility] - Does not give his own injections. Reports blood sugars are checked before meals but not sure what blood sugar levels are. Carb controlled diet Patient reports tremors, chills Feels unsteady on feet. PT was stopped at [facility] per patient. Patient on IV [...] hours PRN bisacodyl (DULCOLAX) 5 mg, Daily SD (more content not included)... Normal [facility] THYROID STIMULATING HORMONEo n 11-28-2024 THYROID STIMULATING HORMONE 3.04 uIU/mL Normal 0.35-4.94 [facility] Comment on above: Performed By: #### L [id number], [id number] ####Data Operations Manager: JAQUELIN MO ([id number])[facility] [place] [address] TSH Qnon 11-28-2024 Interpretation and review of laboratory results Normal [facility] VANCOMYCIN, AUC TIMED DOSING on 11-28-2024 VANCOMYCIN, AUC 26.5 ug/mL Normal [facility] Comment on above: Result Comment: FLAVIO Trejo COMMENTS: PreHD level. Okay to draw any time prior to HD session. Toxicity is seen at concentrations >80-100 ug/mL Therapeutic (Peak) range: 20-40 Therapeutic (Trough) range: 5-10 Performed By: #### L [id number] ####Data Operations Manager: JAQUELIN MO ([id number])[facility] ([facility] [place] [address] Vancomycin trough [Mass/Vol] on 11-28-2024 Toxicity is seen at concentrations >80-100 ug/mL Therapeutic (Peak) range: 20-40 Therapeutic (Trough) range: 5-10 [facility] [id number] 11-27-2024 [id number] Care Managment Initi al Assessment Date: 11/27/2024 Patient Name: José Manuel Ashton : 1960 Patient Information Source of Information: Patient Cognition/Language: WFL - Within Functional Limits Permission given to speak with patient human resources representative/caregiver as indicated: Confirmation of Payer with patient/family: Yes Payer Name: [employer] MEDICARE/[facility] DUAL COMPLETE : No Confirmation of Primary Care Physician: Primary Caregiver: If assistance needed, confirmed caregiver ready, willing and able to care for patient at discharge: Confirmed with: Living Arrangements Current Residence: Number of Floors Number of Entry Steps: Bed/Bath Levels: Facility: Nursing Facility Skilled Facility Name: [facility] Plan to Return: Yes Lives with: Alone [...] Services: Dialysis Type: Hemo Dialysis Provider Name/Location: [facility] M-F Durable Medical Equipment: Wheelchair (standard or power), Cane Patient's Goal/Discharge Plan Patient expects to be discharged to: [facility] Discharge Planning Actions: Continue to follow, Mcfp Facility referral indicated Patient's Choice Rights and [employer] and Collaborative Relationships Disclosed as Indicated for Post-Acute Care: NA Interdisciplinary Team Engagement: Social Work Referral for: Additional Information: Spoke with patient at their bedside. Introduced self and role. Discussed discharge planning. Patient has health insurance and prescription coverage. Patient states he lives at [facility] and plans to return. Tasked [employer] to send referral in [facility]. Will await response. He receives hemodialysis there Monday through Monday. He will need ambulance transport with cot upon discharge. manager insurance will continue to follow for any discharge planning needs. 2:46 PM UPDATE: Patient is a bedhold at [facility]. They would like to skill him for his return but he may return regardless when medically ready. They are submitting precert today. [facility] [phone] call to [facility] coverage line. Per [facility] coverage line, he was denied Assisted Living due to usp assisted care placement at [facility]. TCC notified. Normal [facility] BLOOD CULTUREon 11-27-2024 Bacteria identified Cx Nom (Bld) BLOOD CULTURE Reference No growth at 5 days ORDER COMMENTS: Blood Collection Site: Left Lower Arm [ S = SUSCEPTIBLE R = RESISTANT I = INTERMEDIATE S-DD = Susceptible-dose dependent NS = Non-susceptible NO = No Interpretation ] Normal [facility] Comment on above: Performed By: #### L [id number] #### Data Operations Manager: ESAU SKINNER ([id number]) [facility] ([facility]) [address] [place] [address] CBC W Auto Differential pane l (Bld)on 11-27-2024 Basophils (Bld) [#/Vol] 0 10*3/uL 0.0 - 0.2 10*3/uL [employer] [facility] Basophils/100 WBC (Bld) 0.2 % 0.0 - 2.0 % [facility] Eosinophils (Bld) [#/Vol] 0.1 10*3/uL 0.0 - 0.5 10*3/uL [facility] Eosinophils/100 WBC (Bld) 2.8 % 0.0 - 6.0 % [facility] Erythrocyte distribution width (RBC) [Ratio] 12.6 % 11.5 - 15.0 % [facility] Hematocrit (Bld) [Volume fraction] 26.7 % Low 40.0 - 52.0 % [employer] [facility] Hemoglobin (Bld) [Mass/Vol] 8.5 g/dL Low 13.0 - 18.0 g/dL [employer] [facility] Immature granulocytes (Bld) [#/Vol] 0.1 10*3/uL High NINF - 0.1 10*3/uL [employer] [facility] Immature granulocytes/100 WBC (Bld) 1 % 0.0 - 2.0 % [facility] Interpretation and review of laboratory results Abnormal [facility] Lymphocytes (Bld) [#/Vol] 1.2 10*3/uL 1.0 - 4.3 10*3/uL [employer] [facility] Lymphocytes/100 WBC (Bld) 23.3 % 15.0 - 45.0 % [facility] MCH (RBC) [Entitic mass] 29 pg 26.0 - 34.0 pg [facility] MCHC (RBC) [Mass/Vol] 31.8 % 30.5 - 36.0 % [facility] MCV (RBC) [Entitic vol] 91.1 fL 77.0 - 99.0 fL [facility] Monocytes (Bld) [#/Vol] 0.6 10*3/uL 0.0 - 0.9 10*3/uL [facility] Monocytes/100 WBC (Bld) 11.9 % 5.0 - 13.0 % [facility] Neutrophils (Bld) [#/Vol] 3 10*3/uL 1.8 - 7.5 10*3/uL [facility] Neutrophils/100 WBC (Bld) 60.8 % 38.0 - 82.0 % [facility] Nucleated RBC/100 WBC (Bld) [Ratio] 0 % [facility] Platelet mean volume (Bld) [Entitic vol] 8.7 fL Low 9.0 - 12.7 fL [facility] Platelets (Bld) [#/Vol] 216 10*3/uL 140 - 440 10*3/uL [facility] RBC (Bld) [#/Vol] 2.93 10*6/uL Low 4.40 - 5.9 0 10*6/uL [facility] WBC (Bld) [#/Vol] 5 10*3/uL 3.6 - 10.7 10*3/uL [facility] CBC WITH AUTO DIFFERENTIALon 11-27-2024 Basophils (Bld) [#/Vol] 0.0 10*3/uL Normal 0.0-0.2 [facility] Comment on above: Performed By: #### L [id number] ####Data Operations Manager: JAQUELIN MO ([id number])[facility] ([facility])[address] Basophils/100 WBC (Bld) 0.2 % Normal 0.0-2.0 [facility] Comment on above: Performed By: #### L [id number] ####Data Operations Manager: JAQUELIN MO ([id number])[facility] ([facility])[address] Eosinophils (Bld) [#/Vol] 0.1 10*3/uL Normal 0.0-0.5 [facility] Comment on above: Performed By: #### L [id number] ####Data Operations Manager: JAQUELIN RASCONYOEL ([id number])[facility] ([facility])[address] Eosinophils/100 WBC (Bld) 2.8 % Normal 0.0-6.0 [facility] Comment on above: Performed By: #### L [id number] ####Data Operations Manager: JAQUELIN RASCONYOEL ([id number])[facility] ([facility])[address] Erythrocyte distribution width (RBC) [Ratio] 12.6 % Normal 11.5-15.0 [facility] Comment on above: Performed By: #### L [id number] ####Data Operations Manager: JAQUELIN BROWNBALAJI ([id number])[facility] ([facility])[address] [place] [address] Hematocrit (Bld) [Volume fraction] 26.7 % Low 40.0-52.0 [facility] Comment on above: Performed By: #### L [id number] ####Data Operations Manager: JAQUELIN RASCONYOEL ([id number])[facility] ([facility])[address] [place] [address] Hemoglobin (Bld) [Mass/Vol] 8.5 g/dL Low 13.0-18.0 [facility] Comment on above: Performed By: #### L [id number] ####Data Operations Manager: JAQUELIN RASCONYOEL ([id number])[facility] ([facility])[address] IMMATURE GRANS % 1.0 % Normal 0.0-2.0 [facility] Comment on above: Performed By: #### L [id number] ####Data Operations Manager: JAQUELIN RASCONYOEL ([phone])[facility] ([facility])[address] IMMATURE GRANS ABSOLUTE 0.1 10*3/uL High <0.1 [facility] Comment on above: Performed By: #### L [id number] ####Data Operations Manager: JAQUELIN MO ([id number])[facility] ([facility])[address] Lymphocytes (Bld) [#/Vol] 1.2 10*3/uL Normal 1.0-4.3 [facility] Comment on above: Performed By: #### L [id number] ####Data Operations Manager: JAQUELIN MO ([id number])[facility] [place] ([facility])[address] Lymphocytes/100 WBC (Bld) 23.3 % Normal 15.0-45.0 [facility] Comment on above: Performed By: #### L [id number] ####Data Operations Manager: JAQUELIN MO ([phone])[facility] ([facility])[address] MCH (RBC) [Entitic mass] 29.0 pg Normal 26.0-34.0 [facility] Comment on above: Performed By: #### L [id number] ####Data Operations Manager: JAQUELIN MO ([id number])[facility] ([facility])[address] [place] [address] MCHC 31.8 % Normal 30.5-36.0 [facility] Comment on above: Performed By: #### L [id number] ####Data Operations Manager: JAQUELIN MO ([phone])[facility] [place] ([facility])[address] [place] [address] MCV (RBC) [Entitic vol] 91.1 fL Normal 77.0-99.0 [facility] Comment on above: Performed By: #### L [id number] ####Data Operations Manager: JAQUELIN MO ([id number])[facility] ([facility])[address] [place] [address] Monocytes (Bld) [#/Vol] 0.6 10*3/uL Normal 0.0-0.9 [facility] Comment on above: Performed By: #### L [id number] ####Data Operations Manager: JAQUELIN MO ([id number])[facility] [place] ([facility])[address] Monocytes/100 WBC (Bld) 11.9 % Normal 5.0-13.0 [facility] Comment on above: Performed By: #### L [id number] ####Data Operations Manager: JAQUELIN MO ([id number])[facility] [place] ([facility])[address] NEUTROPHILS ABSOLUTE 3.0 10*3/uL Normal 1.8-7.5 [facility] Comment on above: Performed By: #### L [id number] ####Data Operations Manager: JAQUELIN MO ([id number])[facility] [place] ([facility])[address] [place] [address] Neutrophils/100 WBC (Bld) 60.8 % Normal 38.0-82.0 [facility] Comment on above: Performed By: #### L [id number] ####Data Operations Manager: JAQUELIN MO ([id number])[facility] [place] ([facility])[address] NRBC 0.0 /100 WBCs Normal 0.0-2.0 [facility] Comment on above: Performed By: #### L [id number] ####Data Operations Manager: JAQUELIN MO ([id number])[facility] [place] ([facility])[address] [place] [address] Platelet mean volume (Bld) [Entitic vol] 8.7 fL Low 9.0-12.7 [facility] Comment on above: Performed By: #### L [id number] ####Data Operations Manager: JAQUELIN MO ([id number])[facility] [place] ([facility])[address] Platelets (Bld) [#/Vol] 216 10*3/uL Normal 140-440 [facility] Comment on above: Performed By: #### L [id number] ####Data Operations Manager: JAQUELIN MO ([id number])[facility] ([facility])[address] RBC (Bld) [#/Vol] 2.93 10*6/uL Low 4.40-5.90 [facility] Comment on above: Performed By: #### L [id number] ####Data Operations Manager: JAQUELIN MO ([id number])[facility] ([facility])[address] WBC (Bld) [#/Vol] 5.0 10*3/uL Normal 3.6-10.7 [facility] Comment on above: Performed By: #### L [id number] ####Data Operations Manager: JAQUELIN MO ([id number])[facility] ([facility])[address] [place] [address] COMPLETE URINALYSIS WITH REF BETHANY TO CULTUREon 11-27-2024 BACTERIA (#/HPF) IN URINE Negative Normal Negative [facility] Comment on above: Performed By: #### L [id number] ####Data Operations Manager: JAQUELIN MO ([id number])[facility] ([facility])[address] [place] [address] BILIRUBIN, TOTAL PRESENCE IN URINE Negative Normal Negative [facility] Comment on above: Performed By: #### L [id number] ####Data Operations Manager: JAQUELIN MO ([id number])[facility] ([facility])[address] [place] [address] Clarity (U) Clear Normal Clear [facility] Comment on above: Performed By: #### L [id number] ####Data Operations Manager: JAQUELIN MO ([id number])[facility] ([facility])[address] [place] [address] Color (U) Light Yellow Normal Lt. Yellow [facility] Comment on above: Performed By: #### L [id number] ####Data Operations Manager: JAQUELIN MO ([id number])[facility] [place] ([facility])[address] Glucose (U) [Mass/Vol] 500 mg/dL Abnormal Normal (<70) [facility] Comment on above: Performed By: #### L [id number] ####Data Operations Manager: JAQUELIN MO ([id number])[facility] ([facility])[address] HEMOGLOBIN PRESENCE IN URINE 0.03 mg/dL Abnormal Negative [facility] Comment on above: Performed By: #### L [id number] ####Data Operations Manager: JAQUELIN MO ([id number])[facility])[address] Ketones Ql (U) Negative Normal Negative [facility] Comment on above: Performed By: #### L [id number] ####Data Operations Manager: JAQUELIN MO ([id number])[facility] ([facility])[address] LEUKOCYTE ESTERASE PRESENCE IN URINE BY TEST STRIP Negative Normal Negative [facility] Comment on above: Performed By: #### L [id number] ####Data Operations Manager: JAQUELIN MO ([id number])[facility])[address] NITRITE PRESENCE IN URINE Negative Normal Negative [facility] Comment on above: Performed By: #### L [id number] ####Data Operations Manager: JAQUELIN MO ([id number])[facility])[address] pH (U) 6.0 [pH] Normal 5.0-8.0 [facility] Comment on above: Performed By: #### L [id number] ####Data Operations Manager: JAQUELIN MO ([id number])[facility])[address] Protein (U) [Mass/Vol] 100 mg/dL Abnormal Negative [facility] Comment on above: Performed By: #### L [id number] ####Data Operations Manager: JAQUELIN MO ([id number])[facility] [place] ([facility])[address] RBC (#/HPF) IN URINE SEDIMENT 0-2 Normal 0-2 [facility] Comment on above: Performed By: #### L [id number] ####Data Operations Manager: JAQUELIN MO ([id number])[facility] [place] ([facility])[address] Specific gravity (U) [Rel density] 1.013 Normal 1.005-1.030 [facility] Comment on above: Result Comment: FLAVIO Trejo COMMENTS: A specimen with <=10 WBC is not consistent with inflammation. This specimen will not reflex to a urine culture. Performed By: #### L [id number] ####Data Operations Manager: JAQUELIN MO ([id number])[facility] [place] ([facility])[address] SQUAMOUS EPITHELIAL CELLS (#/HPF) IN URINE SEDIMENT Negative Normal 3-5 [facility] Comment on above: Performed By: #### L [id number] ####Data Operations Manager: JAQUELIN MO ([id number])[facility] [place] ([facility])[address] UROBILINOGEN (MG/DL) IN URINE Normal Normal Normal (0-1) [facility] Comment on above: Performed By: #### L [id number] ####Data Operations Manager: JAQUELIN MO ([id number])[facility] [place] ([facility])[address] WBC (LEUKOCYTE) (#/HPF) IN URINE SEDIMENT 0-2 Normal 0-5 [facility] Comment on above: Performed By: #### L [id number] ####Data Operations Manager: JAQUELIN MO ([id number])[facility] [place] ([facility])[address] COMPREHENSIVE METABOLIC PANE Tommie 11-27-2024 Albumin [Mass/Vol] 2.9 g/dL Low 3.4-4.8 [facility] Comment on above: Performed By: #### L [id number] ####Data Operations Manager: JAQUELIN MO ([id number])[facility] [place] ([facility])[address] ALP [Catalytic activity/Vol] 94 U/L Normal 40-150 [facility] Comment on above: Performed By: #### L [id number] ####Data Operations Manager: JAQUELIN MO ([id number])[facility] [place] ([facility])[address] ALT [Catalytic activity/Vol] 16 U/L Normal <40 [facility] Comment on above: Performed By: #### L [id number] ####Data Operations Manager: JAQUELIN MO ([id number])[facility] [place] ([facility])[address] Anion gap [Moles/Vol] 11 mmol/L Normal 3-13 [facility] Comment on above: Performed By: #### L [id number] ####Data Operations Manager: JAQUELIN MO ([id number])[facility] [place] ([facility])[address] AST [Catalytic activity/Vol] 17 U/L Normal <34 [facility] Comment on above: Performed By: #### L [id number] ####Data Operations Manager: JAQUELIN MO ([id number])[facility] [place] ([facility])[address] Bilirubin [Mass/Vol] 0.4 mg/dL Normal <1.2 [facility] Comment on above: Performed By: #### L [id number] ####Data Operations Manager: JAQUELIN MO ([id number])[facility] [place] ([facility])[address] Calcium [Mass/Vol] 9.0 mg/dL Normal 8.8-10.0 [facility] Comment on above: Performed By: #### L [id number] ####Data Operations Manager: JAQUELIN MO ([id number])[facility] [place] ([facility])[address] Chloride [Moles/Vol] 106 mmol/L Normal 98-107 [facility] Comment on above: Performed By: #### L [id number] ####Data Operations Manager: JAQUELIN MO ([id number])[facility] [place] (SBHLAB)[address] CO2 [Moles/Vol] 27 mmol/L Normal 23-31 [facility] Comment on above: Performed By: #### L AB17 ####Data Operations Manager: JAQUELIN MO ([id number])[facility] [place] (SBHLAB)[address] Creatinine [Mass/Vol] 6.86 mg/dL High 0.72-1.25 [facility] Comment on above: Performed By: #### L AB17 ####Data Operations Manager: JAQUELIN MO ([id number])[facility] [place] (HLAB)[address] GLOMERULAR FILTRATION RATE ML/MIN/1.73 SQ M.PREDICTED 8.3 mL/min/1.73m*2 Low >60.0 [facility] Comment on above: Result Comment: Calc ulation based on the Chronic Kidney Disease Epidemiology Collaboration (CKD-EPI) equation refit without adjustment for race Performed By: #### L AB17 ####Data Operations Manager: JAQUELIN MO ([id number])[facility] [place] (SBHLAB)155 [place] [address] [place] Glucose [Mass/Vol] 161 mg/dL High 82-115 [facility] Comment on above: Performed By: #### L AB17 ####Data Operations Manager: JAQUELIN MO ([id number])[facility] [place] (SBHLAB)155 [place] [address] [place] Potassium [Moles/Vol] 4.8 mmol/L Normal 3.5-5.1 [facility] Comment on above: Result Comment: [facility] potassium values may be up to 0.5 mmol/L lower than serum values. Performed By: #### L AB17 ####Data Operations Manager: JAQUELIN MO ([id number])[facility] (SB[facility])[address] Protein [Mass/Vol] 6.2 g/dL Low 6.4-8.3 [facility] Comment on above: Performed By: #### L AB17 ####Data Operations Manager: JAQUELIN MO ([id number])[facility] (SB[facility])[address] Sodium [Moles/Vol] 144 mmol/L Normal 136-145 [facility] Comment on above: Performed By: #### L AB17 ####Data Operations Manager: JAQUELIN MO ([id number])[facility] [place] (SBHLAB)[address] Urea nitrogen [Mass/Vol] 67 mg/dL High 9-23 [facility] Comment on above: Performed By: #### L AB17 ####Data Operations Manager: JAQUELIN RASCONYOEL ([id number])[facility] (SBHLAB)[address] Comprehensive metabolic 1998 panelOrdered By: David Hartley on 11-27-2024 Albumin [Mass/Vol] 2.9 g/dL Low 3.4 - 4.8 g/dL [facility] ALP [Catalytic activity/Vol] 94 U/L 40 - 150 U/L [facility] ALT [Catalytic activity/Vol] 16 U/L NINF - 40 U/L [facility] Anion gap [Moles/Vol] 11 mmol/L 3 - 13 mmol/L [facility] AST [Catalytic activity/Vol] 17 U/L NINF - 34 U/L [facility] Bilirubin [Mass/Vol] 0.4 mg/dL NINF - 1.2 mg/dL [facility] Calcium [Mass/Vol] 9 mg/dL 8.8 - 10. 0 mg/dL [facility] Chloride [Moles/Vol] 106 mmol/L 98 - 10 7 mmol/L [facility] CO2 [Moles/Vol] 27 mmol/L 23 - 31 mmol/L [facility] Creatinine [Mass/Vol] 6.86 mg/dL High 0.72 - 1.25 mg/dL [facility] GFR/1.73 sq M.predicted (S/P/Bld) [Vol rate/Area] 8.3 mL/min Low - PINF [facility] Comment on above: Calculation based on the Chronic Kidney Disease Epidemiology Collaboration (CKD-EPI) equation refit without adjustment for race Glucose [Mass/Vol] 161 mg/dL High 82 - 115 mg/dL [facility] Interpretation and review of laboratory results Abnormal [facility] Potassium [Moles/Vol] 4.8 mmol/L 3.5 - 5.1 mmol/L [facility] Comment on above: Plasma potassium reji ues may be up to 0.5 mmol/L lower than serum values. Protein [Mass/Vol] 6.2 g/dL Low 6.4 - 8.3 g/dL [facility] Sodium [Moles/Vol] 144 mmol/L 136 - 145 mmol/L [facility] Urea nitrogen [Mass/Vol] 67 mg/dL High 9 - 23 mg/dL [facility] HBV surface Ab IA Qnon 11-27 Interpretation: <8.0 Non-Reactive 8.0-11.9 Equivocal >= 12.0 Ab Detected Note: If an equivocal result is interpreted, an antibody status is unable to be determined. Collect new specimen if clinically indicated. [facility] HBV surface Ag IA Qlon 11-27 Interpretation and review of laboratory results Normal [facility] HEPATITIS B SURFACE ANTIBODY on 11-27-2024 HEPATITIS B VIRUS SURFACE AB <8.0 Normal [facility] Comment on above: Result Comment: ORDE R COMMENTS: Interpretation: <8.0 Non-Reactive 8.0-11.9 Equivocal >= 12.0 Ab Detected Note: If an equivocal result is interpreted, an antibody status is unable to be determined. Collect new specimen if clinically indicated. Performed By: #### L AB472, [id number] ####Data Operations Manager: ESAU SKINNER ([id number])[facility] ([address] HEPATITIS B VIRUS SURFACE AB <8.0 Normal [facility] Comment on above: Result Comment: FLAVIO R COMMENTS: Interpretation: <8.0 Non-Reactive 8.0-11.9 Equivocal >= 12.0 Ab Detected Note: If an equivocal result is interpreted, an antibody status is unable to be determined. Collect new specimen if clinically indicated. Performed By: #### L AB471, [id number] ####Data Operations Manager: ESAU SKINNER ([id number])[facility])[address] [place] [address] HEPATITIS B SURFACE ANTIGENo n 11-27-2024 HEPATITIS B VIRUS SURFACE AG Not detected Normal Not Detected [facility] Comment on above: Performed By: #### L AB472, [id number] ####Data Operations Manager: ESAU SKINNER ([id number])[facility] ([facility])[address] [place] [address] HEPATITIS B VIRUS SURFACE AG Not detected Normal Not Detected [facility] Comment on above: Performed By: #### L AB471, [id number] ####Data Operations Manager: ESAU SKINNER ([id number])[address] LEGIONELLA AND STREPTOCOCCUS URINE ANTIGENon 11-27-2024 [...] pneumophila serogroups may also be detected. Normal [facility] Comment on above: Performed By: #### L [id number] ####Data Operations Manager: ESAU SKINNER ([id number])[facility])[address] [place] [address] Laboratory - Chemistry and C hemistry - challengeon 11-27-2024 Glucose [Mass/Vol] 158 mg/dL High 70 - 100 mg/dL [facility] Glucose [Mass/Vol] 137 mg/dL High 70 - 100 mg/dL [facility] Glucose [Mass/Vol] 142 mg/dL High 70 - 100 mg/dL [facility] - Drug toxicology on 11-27-2024 Vancomycin trough [Mass/Vol] 21.8 ug/mL [facility] - Microbiology an d Antimicrobial susceptibilityon 11-27-2024 HBV surface Ab IA Qn mIU/mL [facility] HBV surface Ag IA Ql Not detected Not Detected [facility] No Panel Informationon 11-27 Interpretation and review of laboratory results Abnormal [facility] Performed by: [facility], [address] [place] [address] CLIA ID: [id number] [facility] Extra Tube Hold for add-ons. [facility] Comment on above: Auto resulted. [facility] Interpretation and review of laboratory results Abnormal [facility] Performed by: [facility], [address] [place] [address] CLIA ID: [id number] [facility] Interpretation and review of laboratory results Abnormal [facility] Performed by: [facility]aly, [address] [place] [address] CLIA ID: [id number] [facility] No Panel InformationOrdered By: Elayne Ladd on 11-27-2024 Interpretation and review of laboratory results Normal [facility] Legionella pneumophila Ag Not detected Not Detected [facility] Streptococcus pneumoniae Ag Not detected Not Detected [facility] Methodology: Lateral flow enzyme immunoassay This assay is approved for detection of antigens to Streptococcus pneumoniae and Legionella pneumophila serogroup 1; however, other L. pneumophila serogroups may also be detected. Methodology: Lateral flow enzyme immunoassay This assay is approved for detection of antigens to Streptococcus pneumoniae and Legionella pneumophila serogroup 1; however, other L. pneumophila serogroups may also be detected. [facility] Nursing Noteon 11-27-2024 Nursing Note Patient Name: José Manuel Ashton Patient : 1960 Acct: [id number] Date of Admission: 11/25/2024 Room/Bed: [facility] A Code Status: Full Code Allergies: [...] (0) 4 Regular None (Room air) Diminished [place] Warm;Dry -- -- -- Labs Lab Results [...] - Before each treatment: Dialysis Machine No.: [id number] RO Machine Number: [id number] Dialyzer Lot No.: [id number] Tubing Lot Number: [id number] All Connections Secure: Yes Venous Parameters Set: Yes Arterial Parameters Set: Yes NS Bag: Yes Saline Line Double Clamped: Yes Dialyzer: Nipro Prime Volume (mL): 200 mL RO Machine Number: [id number] RO Machine Log Sheet Completed: Yes Conductivity Meter Serial #: [id number] Machine Functioning Alarm Free? Yes Dialysis Bath: [...] a ch (more content not included)... Normal [facility] Progress Noteon 11-27-2024 Progress Note ------ -- Attestation signed by Tosha Barriga MD at 11/27/2024 5:03 PM I have reviewed the above assessment and plan with the SOLUTIONS ANALYST. I agree with above note. HD today. [...] ROS Otherwise negative No interval changes to [facility]. All interval notes/labs/imaging reviewed. Objective/ Vitals: 11/26/24 [...] to call with any questions or concerns. [facility] Office This note is [...] OR ondansetron, oxyCODONE, polyethylene glycol (PEG) [address] [facility] Progress Note Nutrition rescreen completed. Pt referred to RD for ESRD patient on HD. [facility] Progress Note Department of Machine [employer] al Medicine Division of Endocrinology, Diabetes, & Metabolism Endocrinology Note Patient Name: José Manuel Ashton : 1960 AGE: 63 y.o. [facility] A Admission Date: 11/25/2024 Visit Date: 11/27/2024 Reason for Endocrine Consult: DM/Pt on U300 insulin Provider/Team Requesting Consult: Dr. Hills PCP: Brittaney Garcia MD [employer] Practitioner: Yes [facility] ASSESSMENT: Type 2 diabetes mellitus with hyperglycemia, with usp insulin use Lethargy and chills HTN DM2 [...] on day of discharge Outpt Follow Up-- [facility] Endocrinology SUBJECTIVE/HPI: CHIEF COMPLAINT: Chief Complaint Patient presents with Altered Mental Status Pt presents to ED via EMS from [facility] for responding slowly and indicates he is cold. José Manuel Ashton is a 63 yo male who presented to ED from [facility] Dialysis center with Tremor, chills and delayed [...] in bed Patient reports he resides at [facility] Patient not sure of insulin doses at [facility] - Does not give his [...] Scheduled Meds:Schedul (more content not included)... Normal [facility] Urinalysis complete panel (U )Ordered By: Nusrat Zelaya on 11-27-2024 Bacteria LM.HPF (Urine sed) [#/Area] Negative Negative /HPF [facility] Bilirubin Ql (U) Negative Negative mg/dL [facility] Clarity (U) Clear Clear [facility] Color (U) Light Yellow Lt. Yellow [facility] Epithelial cells.squamous LM.HPF (Urine sed) [#/Area] Negative [facility] Glucose Ql (U) 500 mg/dL Abnormal Normal (<70) [facility] Hemoglobin Ql (U) 0.03 mg/dL Abnormal Negative [facility] Interpretation and review of laboratory results Abnormal [facility] Ketones (U) [Mass/Vol] Negative Negative mg/dL [facility] Leukocyte esterase Test strip Ql (U) Negative Negative Norm/uL [facility] Nitrite Ql (U) Negative Negative [facility] pH (U) 6.0 [pH] 5.0 - 8.0 pH [facility] Protein (U) [Mass/Vol] 100 mg/dL Abnormal Negative [facility] RBC LM.HPF (Urine sed) [#/Area] 0-2 [facility] Specific gravity (U) [Rel density] 1.013 1.005 - 1.030 [facility] Urobilinogen (U) [Mass/Vol] Normal Normal (0-1) mg/dL [facility] WBC LM.HPF (Urine sed) [#/Area] 0-2 [facility] A specimen with <=10 WBC is not consistent with inflammation. This specimen will not reflex to a urine culture. [facility] VANCOMYCIN, AUC TIMED DOSING on 11-27-2024 VANCOMYCIN, AUC 21.8 ug/mL Normal [facility] Comment on above: Result Comment: FLAVIO Trejo COMMENTS: Please draw level this morning prior to HD. Toxicity is seen at concentrations >80-100 ug/mL Therapeutic (Peak) range: 20-40 Therapeutic (Trough) range: 5-10 Performed By: #### L AB39 ####Data Operations Manager: JAQUELIN MO ([id number])[facility] [place] (SBHLAB)[address] [place] [address] Vancomycin trough [Mass/Vol] on 11-27-2024 Toxicity is seen at concentrations >80-100 ug/mL Therapeutic (Peak) range: 20-40 Therapeutic (Trough) range: 5-10 [facility] COMPREHENSIVE METABOLIC PANE Tommie 11-26-2024 Albumin [Mass/Vol] 3.0 g/dL Low 3.4-4.8 [facility] Comment on above: Performed By: #### L AB17, [id number] ####Data Operations Manager: JAQUELIN MO ([id number])[facility] (SBHLAB)[address] ALP [Catalytic activity/Vol] 95 U/L Normal 40-150 [facility] Comment on above: Performed By: #### L AB17, [id number] ####Data Operations Manager: JAQUELIN MO ([id number])[facility] (SBHLAB)[address] ALT [Catalytic activity/Vol] 14 U/L Normal <40 [facility] Comment on above: Performed By: #### L AB17, [id number] ####Data Operations Manager: JAQUELIN MO ([id number])[facility] [place] (SBHLAB)[address] Anion gap [Moles/Vol] 11 mmol/L Normal 3-13 [facility] Comment on above: Performed By: #### L AB17, [id number] ####Data Operations Manager: JAQUELIN MO ([id number])[facility] (SBHLAB)[address] AST [Catalytic activity/Vol] 21 U/L Normal <34 [facility] Comment on above: Performed By: #### L AB17, [id number] ####Data Operations Manager: JAQUELIN MO ([id number])[facility] (SBHLAB)[address] Bilirubin [Mass/Vol] 0.4 mg/dL Normal <1.2 [facility] Comment on above: Performed By: #### L AB17, [id number] ####Data Operations Manager: JAQUELIN MO ([id number])[facility]ITAL[facility] [place] (SBHLAB)[address] Calcium [Mass/Vol] 9.0 mg/dL Normal 8.8-10.0 [facility] Comment on above: Performed By: #### L AB17, [id number] ####Data Operations Manager: JAQUELIN MO ([id number])[facility] [place] (SBHLAB)[address] Chloride [Moles/Vol] 105 mmol/L Normal 98-107 [facility] Comment on above: Performed By: #### L AB17, [id number] ####Data Operations Manager: JAQUELIN MO ([id number])[facility] [place] (SBHLAB)[address] CO2 [Moles/Vol] 24 mmol/L Normal 23-31 [facility] Comment on above: Performed By: #### L AB17, [id number] ####Data Operations Manager: JAQUELIN MO ([id number])[facility] [place] (SBHLAB)[address] Creatinine [Mass/Vol] 5.70 mg/dL High 0.72-1.25 [facility] Comment on above: Performed By: #### L AB17, [id number] ####Data Operations Manager: JAQUELIN MO ([id number])[facility] [place] (SBHLAB)[address] GLOMERULAR FILTRATION RATE ML/MIN/1.73 SQ M.PREDICTED 10.4 mL/min/1.73m*2 Low >60.0 [facility] Comment on above: Result Comment: Calc ulation based on the Chronic Kidney Disease Epidemiology Collaboration (CKD-EPI) equation refit without adjustment for race Performed By: #### L AB17, [id number] ####Data Operations Manager: JAQUELIN MO ([id number])[facility] [place] (SBHLAB)[address] Glucose [Mass/Vol] 123 mg/dL High 82-115 [facility] Comment on above: Performed By: #### L AB17, [id number] ####Data Operations Manager: JAQUELIN MO ([id number])[facility] (SBHLAB)[address] Potassium [Moles/Vol] 4.4 mmol/L Normal 3.5-5.1 [facility] Comment on above: Result Comment: [facility] potassium values may be up to 0.5 mmol/L lower than serum values. Performed By: #### L AB17, [id number] ####Data Operations Manager: JAQUELIN MO ([id number])[facility] [place] (SBHLAB)[address] Protein [Mass/Vol] 6.4 g/dL Normal 6.4-8.3 [facility] Comment on above: Performed By: #### L AB17, [id number] ####Data Operations Manager: JAQUELIN MO ([id number])[facility] (SB[facility])[address] Sodium [Moles/Vol] 140 mmol/L Normal 136-145 [facility] Comment on above: Performed By: #### L AB17, [id number] ####Data Operations Manager: JAQUELIN MO ([id number])[facility] (SB[facility])[address] Urea nitrogen [Mass/Vol] 56 mg/dL High 9-23 [facility] Comment on above: Performed By: #### L AB17, [id number] ####Data Operations Manager: JAQUELIN MO ([id number])[facility] (SB[facility]AB)[address] Comprehensive metabolic 1998 panelon 11-26-2024 Albumin [Mass/Vol] 3 g/dL Low 3.4 - 4.8 g/dL [facility] ALP [Catalytic activity/Vol] 95 U/L 40 - 150 U/L [facility] ALT [Catalytic activity/Vol] 14 U/L [facility] - 40 U/L [facility] Anion gap [Moles/Vol] 11 mmol/L 3 - 13 mmol/L [facility] AST [Catalytic activity/Vol] 21 U/L NINF - 34 U/L [facility] Bilirubin [Mass/Vol] 0.4 mg/dL NINF - 1.2 mg/dL [facility] Calcium [Mass/Vol] 9 mg/dL 8.8 - 10. 0 mg/dL [facility] Chloride [Moles/Vol] 105 mmol/L 98 - 10 7 mmol/L [facility] CO2 [Moles/Vol] 24 mmol/L 23 - 31 mmol/L [facility] Creatinine [Mass/Vol] 5.7 mg/dL High 0.72 - 1.25 mg/dL [facility] GFR/1.73 sq M.predicted (S/P/Bld) [Vol rate/Area] 10.4 mL/min Low - PINF [facility] Comment on above: Calculation based on the Chronic Kidney Disease Epidemiology Collaboration (CKD-EPI) equation refit without adjustment for race Glucose [Mass/Vol] 123 mg/dL High 82 - 115 mg/dL [facility] Interpretation and review of laboratory results Abnormal [facility] Potassium [Moles/Vol] 4.4 mmol/L 3.5 - 5.1 mmol/L [facility] Comment on above: Plasma potassium reji ues may be up to 0.5 mmol/L lower than serum values. Protein [Mass/Vol] 6.4 g/dL 6.4 - 8.3 g/dL [facility] Sodium [Moles/Vol] 140 mmol/L 136 - 145 mmol/L [facility] Urea nitrogen [Mass/Vol] 56 mg/dL High 9 - 23 mg/dL [facility] Consulton 11-26-2024 Consult ------ -- Attestation signed by Tosha Barriga MD at 11/26/2024 9:51 PM I have reviewed the above assessment and plan with the SOLUTIONS ANALYST. I agree with above note. HD tomorrow. Patient established with Dr Abiel Dudley outpatient. We cover his patients here. -- [facility] Consultation Note Reason for [...] hemodialysis. Patient follows with Dr. Dudley at [facility]. He receives HD at his facility M- [...] in contact with his dialysis nurse at [facility] and she confirmed his DW had recently [...] concerns regarding my recommendations as outlined above. [facility] Office [1] No family history on file. [2] Social History Socioeconomic History Marital status: Single Social Drivers of Health Financial Resource Strain: Medium Risk (05/24/2023) Received from [facility] Overall Financial Resource Strain (CARDIA) Difficulty [...] Physical Activity: Insufficiently Active (12/28/2021) Received from [facility] Exercise Vital Sign Days of Exercise per Week: 7 days Minutes of Exercise p (more content not included)... [facility] Consult Department of Machine [employer] al Medicine Division of Endocrinology, Diabetes, & Metabolism Endocrinology Note Patient Name: José Manuel Ashton : 1960 AGE: 63 y.o. Room/Bed: Admission Date: 11/25/2024 Visit Date: 11/26/2024 Reason for Endocrine Consult: DM/Pt on U300 insulin Provider/Team Requesting Consult: Dr. Hills PCP: Brittaney Garcia MD [employer] Practitioner: Yes [facility] ASSESSMENT: Type 2 diabetes mellitus with hyperglycemia, with usp insulin use PLAN: Start Lantus 10 units [...] medium dose sliding scale Outpt Follow Up-- [facility] Endocrinology SUBJECTIVE/HPI: CHIEF COMPLAINT: Chief Complaint Patient presents with Altered Mental Status Pt presents to ED via EMS from [facility] for responding slowly and indicates he is cold. José Manuel Ashton is a 63 yo male who presented to ED from [facility] Dialysis center with Tremor, chills and delayed [...] in bed Patient reports he resides at [facility] Patient not sure of insulin doses at [facility] - Does not give his own injections. Reports blood sugars are checked before meals but not sure what blood sugar levels are. Carb controlled diet Patient reports tremors, chills Feels unsteady on feet. PT was stopped at [facility] per patient. Glucose Date/Time Value [...] for: VLDL (more content not included)... Normal [facility] HEMOGLOBIN A1Con 11-26-2024 Glucose [Mass/Vol] 111 mg/dL Normal [facility] Comment on above: Result Comment: FLAVIO Trejo [...] repeat testing. Performed By: #### L AB90 ####Data Operations Manager: JAQUELIN MO ([id number])[facility]ITAL[facility] [place] ([facility])[address] HEMOGLOBIN A1C 5.5 %HbA1C Normal <5.7 [facility] Comment on above: Result Comment: Norm al less than 5.7% Prediabetes 5.7% to 6.4% Diabetes 6.5% or higher --HgbA1C levels may not be accurate in patients who have renal disease, received recent blood transfusions, are anemic, or who have dyshemoglobinemia. Performed By: #### L AB90 ####Data Operations Manager: JAQUELIN MO ([id number])[facility] ([facility])[address] [place] [address] Laboratory - Chemistry and C hemistry - challengeon 11-26-2024 Glucose [Mass/Vol] 180 mg/dL High 70 - 100 mg/dL [facility] Glucose [Mass/Vol] 206 mg/dL High 70 - 100 mg/dL [facility] Glucose [Mass/Vol] 174 mg/dL High 70 - 100 mg/dL [facility] Average glucose Estimated from glycated hemoglobin (Bld) [Mass/Vol] 111 mg/dL [facility] Procalcitonin [Mass/Vol] 0.3 ng/mL High NINF - 0.07 ng/mL [facility] Laboratory - Drug toxicology on 11-26-2024 Vancomycin trough [Mass/Vol] 19.8 ug/mL [facility] Laboratory - Hematology and Cell countson 11-26-2024 HbA1c (Bld) [Mass fraction] 5.5 % [facility] Comment on above: Normal less than 5.7 % Prediabetes 5.7% to 6.4% Diabetes 6.5% or higher --HgbA1C levels may not be accurate in patients who have renal disease, received recent blood transfusions, are anemic, or who have dyshemoglobinemia. No Panel Informationon 11-26 Interpretation and review of laboratory results Abnormal [facility] Performed by: Felicita Daly, [address] [place] [id number] CLIA ID: [id number] [facility] Interpretation and review of laboratory results Abnormal [facility] Performed by: Felicita Larsenn, [address] [place] [address] CLIA ID: [id number] [facility] Interpretation and review of laboratory results Abnormal [facility] Performed by: Felicita Garerton, [address] [place] [address] CLIA ID: [id number] [facility] HbA1c values of 5.7- 6.4 percent indicate an increased risk for developing diabetes mellitus. HbA1c values greater than or equal to 6.5 percent are diagnostic of diabetes mellitus. For diagnosis of diabetes in individuals without unequivocal hyperglycemia, results should be confirmed by repeat testing. [facility] PROCALCITONIN TESTon 025 PROCALCITONIN 0.30 ng/mL High <0.07 [facility] Comment on above: Result Comment: FLAVIO Trejo COMMENTS: PCT <0.50 = Low risk of severe sepsis and/or septic shock. PCT >2.00 = High risk of severe sepsis and/or septic shock. Performed By: #### L [id number], [id number] ####Data Operations Manager: JAQUELIN MO ([phone])[facility]ITAL[facility] (SBHLAB)[address] [place] [address] Procalcitonin [Mass/Vol]on 0 11-26-2024 Interpretation and review of laboratory results Abnormal [facility] PCT <0.50 = Low risk of severe sepsis and/or septic shock. PCT >2.00 = High risk of severe sepsis and/or septic shock. [facility] RESPIRATORY PATHOGENS PANEL BY PCRon [...] Detected ORDER COMMENTS: Methodology: Multiplex PCR Normal [facility] Comment on above: Performed By: #### L [id number] ####Data Operations Manager: ESAU SKINNER ([phone])[facility] ([facility])[address] [place] [address] Respiratory pathogens DNA an d RNA panel BETO+non-probe (Nph)Ordered By: Betty Munguia on 11-26-2024 Adenovirus Not detected Not Detected [facility] B. pertussis DNA BETO+probe Ql (Unsp spec) Not detected Not Detected [facility] Bordetella parapertussis Not detected Not Detected [facility] Chlamydia pneumoniae Not detected Not Detected [facility] Coronavirus 229E Not detected Not Detected [facility] Coronavirus HKU1 Not detected Not Detected [facility] Coronavirus NL63 Not detected Not Detected [facility] Coronavirus OC43 Not detected Not Detected [facility] FLUAV RNA BETO+non-probe Ql (Nph) Not detected Not Detected [facility] FLUBV RNA BETO+non-probe Ql (Nph) Not detected Not Detected [facility] Human Metapneumovirus Not detected Not Detected [facility] Human Rhinovirus/Enteroviru s Not detected Not Detected [facility] Interpretation and review of laboratory results Normal [facility] Mycoplasma pneumoniae Not detected Not Detected [facility] Parainfluenza 1 Not detected Not Detected [facility] Parainfluenza 2 Not detected Not Detected [facility] Parainfluenza 3 Not detected Not Detected [facility] Parainfluenza 4 Not detected Not Detected [facility] Respiratory Syncytial Virus Not detected Not Detected [facility] SARS-CoV-2 (COVID-19) RNA BETO+non-probe Ql (Nph) Not detected Not Detected [facility] Methodology: Multiplex PCR [facility] VANCOMYCIN, AUC TIMED DOSING on 11-26-2024 VANCOMYCIN, AUC 19.8 ug/mL Normal [facility] Comment on above: Result Comment: ORDE R COMMENTS: Please draw random level at least >2 hours after the end of the last vancomycin infusion, or 30-minutes before next infusion. Toxicity is seen at concentrations >80-100 ug/mL Therapeutic (Peak) range: 20-40 Therapeutic (Trough) range: 5-10 Performed By: #### L AB39 #### Data Operations Manager: JAQUELIN MO ([phone]) [facility] (SBHLAB) [address] Vancomycin trough [Mass/Vol] on 11-26-2024 Toxicity is seen at concentrations >80-100 ug/mL Therapeutic (Peak) range: 20-40 Therapeutic (Trough) range: 5-10 [facility] BLOOD CULTUREon 11-25-2024 Bacteria identified Cx Nom (Bld) BLOOD CULTURE Reference No growth at 5 days ORDER COMMENTS: Blood Collection Site: Right Hand [ S = SUSCEPTIBLE R = RESISTANT I = INTERMEDIATE S-DD = Susceptible-dose dependent NS = Non-susceptible NO = No Interpretation ] Normal [facility] Comment on above: Performed By: #### L [id number] ####Data Operations Manager: ESAU SKINNER ([phone])[facility] ([facility])[address] [place] [address] Bacteria identified Cx Nom (Bld) BLOOD CULTURE Reference No growth at 5 days ORDER COMMENTS: Blood Collection Site: Left Hand [ S = SUSCEPTIBLE R = RESISTANT I = INTERMEDIATE S-DD = Susceptible-dose dependent NS = Non-susceptible NO = No Interpretation ] [facility] Comment on above: Performed By: #### L [id number] ####Data Operations Manager: ESAU SKINNER ([phone])[facility] ([facility])[address] [place] [address] CBC W Auto Differential pane l (Bld)on 11-25-2024 Basophils (Bld) [#/Vol] 0 10*3/uL 0.0 - 0.2 10*3/uL [facility] Basophils/100 WBC (Bld) 0.1 % 0.0 - 2.0 % [facility] Eosinophils (Bld) [#/Vol] 0.1 10*3/uL 0.0 - 0.5 10*3/uL [facility] Eosinophils/100 WBC (Bld) 1.6 % 0.0 - 6.0 % [facility] Erythrocyte distribution width (RBC) [Ratio] 13 % 11.5 - 15.0 % [facility] Hematocrit (Bld) [Volume fraction] 28.8 % Low 40.0 - 52.0 % [facility] Hemoglobin (Bld) [Mass/Vol] 9.2 g/dL Low 13.0 - 18.0 g/dL [facility] Immature granulocytes (Bld) [#/Vol] 0.1 10*3/uL High NINF - 0.1 10*3/uL [facility] Immature granulocytes/100 WBC (Bld) 0.7 % 0.0 - 2.0 % [facility] Interpretation and review of laboratory results Abnormal [facility] Lymphocytes (Bld) [#/Vol] 1 10*3/uL 1.0 - 4.3 10*3/uL [facility] Lymphocytes/100 WBC (Bld) 15 % 15.0 - 45.0 % [facility] MCH (RBC) [Entitic mass] 29.2 pg 26.0 - 34.0 pg [facility] MCHC (RBC) [Mass/Vol] 31.9 % 30.5 - 36.0 % [facility] MCV (RBC) [Entitic vol] 91.4 fL 77.0 - 99.0 fL [facility] Monocytes (Bld) [#/Vol] 0.7 10*3/uL 0.0 - 0.9 10*3/uL [facility] Monocytes/100 WBC (Bld) 10.1 % 5.0 - 13.0 % [facility] Neutrophils (Bld) [#/Vol] 5 10*3/uL 1.8 - 7.5 10*3/uL [facility] Neutrophils/100 WBC (Bld) 72.5 % 38.0 - 82.0 % [facility] Nucleated RBC/100 WBC (Bld) [Ratio] 0 % [facility] [employer] Platelet mean volume (Bld) [Entitic vol] 9.2 fL 9.0 - 12.7 fL [facility] Platelets (Bld) [#/Vol] 220 10*3/uL 140 - 440 10*3/uL [facility] RBC (Bld) [#/Vol] 3.15 10*6/uL Low 4.40 - 5.9 0 10*6/uL [facility] WBC (Bld) [#/Vol] 6.9 10*3/uL 3.6 - 10.7 10*3/uL [facility] CBC WITH AUTO DIFFERENTIALon 11-25-2024 Basophils (Bld) [#/Vol] 0.0 10*3/uL Normal 0.0-0.2 [facility] Comment on above: Performed By: #### L [id number] ####Data Operations Manager: JAQUELIN MO ([phone])[facility] (SBAB)[address] Basophils/100 WBC (Bld) 0.1 % Normal 0.0-2.0 [facility] Comment on above: Performed By: #### L [id number] ####Data Operations Manager: JAQUELIN MO ([phone])[facility] (SBAB)[address] [place] [address] Eosinophils (Bld) [#/Vol] 0.1 10*3/uL Normal 0.0-0.5 [facility] Comment on above: Performed By: #### L [id number] ####Data Operations Manager: JAQUELIN MO ([phone])[facility] [place] [address] Eosinophils/100 WBC (Bld) 1.6 % Normal 0.0-6.0 [facility] Comment on above: Performed By: #### L [id number] ####Data Operations Manager: JAQUELIN MO ([phone])[facility] ([facility])[address] [place] [address] Erythrocyte distribution width (RBC) [Ratio] 13.0 % Normal 11.5-15.0 [facility] Comment on above: Performed By: #### L [id number] ####Data Operations Manager: JAQUELIN MO ([phone])[facility] ([facility])[address] [place] [address] Hematocrit (Bld) [Volume fraction] 28.8 % Low 40.0-52.0 [facility] Comment on above: Performed By: #### L [id number] ####Data Operations Manager: JAQUELIN BROWNOliviaYOEL ([phone])[facility] ([facility])[address] Hemoglobin (Bld) [Mass/Vol] 9.2 g/dL Low 13.0-18.0 [facility] Comment on above: Performed By: #### L [id number] ####Data Operations Manager: JAQUELIN RASCONYOEL ([phone])[facility] ([facility])[address] IMMATURE GRANS % 0.7 % Normal 0.0-2.0 [facility] Comment on above: Performed By: #### L [id number] ####Data Operations Manager: JAQUELIN CHEPE ([id number])[facility] ([facility])[address] [place] [address] IMMATURE GRANS ABSOLUTE 0.1 10*3/uL High <0.1 [facility] Comment on above: Performed By: #### L [id number] ####Data Operations Manager: JAQUELIN BROWNOliviaYOEL ([phone])[facility] ([facility])[address] [place] [address] Lymphocytes (Bld) [#/Vol] 1.0 10*3/uL Normal 1.0-4.3 [facility] Comment on above: Performed By: #### L [id number] ####Data Operations Manager: JAQUELIN MO ([phone])[facility] ([facility])[address] Lymphocytes/100 WBC (Bld) 15.0 % Normal 15.0-45.0 [facility] Comment on above: Performed By: #### L [id number] ####Data Operations Manager: JAQUELIN MO ([phone])[facility] ([facility])[address] [place] [address] MCH (RBC) [Entitic mass] 29.2 pg Normal 26.0-34.0 [facility] Comment on above: Performed By: #### L [id number] ####Data Operations Manager: JAQUELIN RASCONYOEL ([phone])[facility] [place] (SBHLAB)[address] MCHC 31.9 % Normal 30.5-36.0 [facility] Comment on above: Performed By: #### L [id number] ####Data Operations Manager: JAQUELIN MO ([id number])[facility] [place] (SBHLAB)[address] MCV (RBC) [Entitic vol] 91.4 fL Normal 77.0-99.0 [facility] Comment on above: Performed By: #### L [id number] ####Data Operations Manager: JAQUELIN RASCONYOEL ([phone])[facility] [place] (SBHLAB)[address] [place] [address] Monocytes (Bld) [#/Vol] 0.7 10*3/uL Normal 0.0-0.9 [facility] Comment on above: Performed By: #### L [id number] ####Data Operations Manager: JAQUELIN RASCONYOEL ([phone])[facility] [place] (SBHLAB)[address] Monocytes/100 WBC (Bld) 10.1 % Normal 5.0-13.0 [facility] Comment on above: Performed By: #### L [id number] ####Data Operations Manager: JAQUELIN MO ([phone])[facility] [place] (SBHLAB)[address] NEUTROPHILS ABSOLUTE 5.0 10*3/uL Normal 1.8-7.5 [facility] Comment on above: Performed By: #### L [id number] ####Data Operations Manager: JAQUELIN MO ([phone])[facility] [place] (SBHLAB)[address] Neutrophils/100 WBC (Bld) 72.5 % Normal 38.0-82.0 [facility] Comment on above: Performed By: #### L [id number] ####Data Operations Manager: JAQUELIN MO ([phone])[facility]ITALAntonette [facility] (SBHLAB)[address] NRBC 0.0 /100 WBCs Normal 0.0-2.0 [facility] Comment on above: Performed By: #### L [id number] ####Data Operations Manager: JAQUELIN BROWNBALAJI ([id number])[facility] ([facility])[address] Platelet mean volume (Bld) [Entitic vol] 9.2 fL Normal 9.0-12.7 [facility] Comment on above: Performed By: #### L [id number] ####Data Operations Manager: JAQUELIN BROWNBALAJI ([phone])[facility] (SBHLAB)[address] Platelets (Bld) [#/Vol] 220 10*3/uL Normal 140-440 [facility] Comment on above: Performed By: #### L [id number] ####Data Operations Manager: JAQUELIN RASCONYOEL ([phone])[facility]ITALAntonette [facility] ([facility])[address] RBC (Bld) [#/Vol] 3.15 10*6/uL Low 4.40-5.90 [facility] Comment on above: Performed By: #### L [id number] ####Data Operations Manager: JAQUELIN MO ([phone])[facility] (SB[facility])[address] WBC (Bld) [#/Vol] 6.9 10*3/uL Normal 3.6-10.7 [facility] Comment on above: Performed By: #### L [id number] ####Data Operations Manager: JAQUELIN MO ([phone])[facility] (SBHLAB)[address] COMPREHENSIVE METABOLIC PANE Tommie 11-25-2024 Albumin [Mass/Vol] 3.2 g/dL Low 3.4-4.8 [facility] Comment on above: Performed By: #### L AB17, [id number] ####Data Operations Manager: JAQUELIN MO ([id number])[facility] (SBHLAB)[address] ALP [Catalytic activity/Vol] 100 U/L Normal 40-150 [facility] Comment on above: Performed By: #### L AB17, [id number] ####Data Operations Manager: JAQUELIN MO ([id number])[facility] [place] (SBHLAB)[address] ALT [Catalytic activity/Vol] 17 U/L Normal <40 [facility] Comment on above: Performed By: #### L AB17, [id number] ####Data Operations Manager: JAQUELIN MO ([phone])[facility]ITALAntonette LARSENN (SBHLAB)[address] Anion gap [Moles/Vol] 15 mmol/L High 3-13 [facility] Comment on above: Performed By: #### L AB17, [id number] ####Data Operations Manager: JAQUELIN MO ([phone])[facility] [place] (SBHLAB)[address] AST [Catalytic activity/Vol] 19 U/L Normal <34 [facility] Comment on above: Performed By: #### L AB17, [id number] ####Data Operations Manager: JAQUELIN MO ([id number])[facility] [place] (SBHLAB)[address] Bilirubin [Mass/Vol] 0.5 mg/dL Normal <1.2 [facility] Comment on above: Performed By: #### L AB17, [id number] ####Data Operations Manager: JAQUELIN MO ([phone])[facility] [place] (SBHLAB)[address] Calcium [Mass/Vol] 9.1 mg/dL Normal 8.8-10.0 [facility] Comment on above: Performed By: #### L AB17, [id number] ####Data Operations Manager: JAQUELIN MO ([phone])[facility] (SBHLAB)[address] [place] [address] [place] Chloride [Moles/Vol] 99 mmol/L Normal 98-107 [facility] Comment on above: Performed By: #### L AB17, [id number] ####Data Operations Manager: JAQUELIN MO ([phone])[facility] [place] (SBHLAB)[address] [place] [address] [place] CO2 [Moles/Vol] 25 mmol/L Normal 23-31 [facility] Comment on above: Performed By: #### L AB17, [id number] ####Data Operations Manager: JAQUELIN MO ([id number])[facility]ITALAntonette [place] (SBHLAB)[address] Creatinine [Mass/Vol] 5.14 mg/dL High 0.72-1.25 [facility] Comment on above: Performed By: #### L AB17, [id number] ####Data Operations Manager: JAQUELIN MO ([phone])[facility]ITALAntonette [facility]ENN (SBHLAB)[address] [place] [address] [place] GLOMERULAR FILTRATION RATE ML/MIN/1.73 SQ M.PREDICTED 11.8 mL/min/1.73m*2 Low >60.0 [facility] Comment on above: Result Comment: Calc ulation based on the Chronic Kidney Disease Epidemiology Collaboration (CKD-EPI) equation refit without adjustment for race Performed By: #### L AB17, [id number] ####Data Operations Manager: JAQUELIN MO ([id number])[facility]ITALAntonette [place] (SBHLAB)[address] [place] [address] [place] Glucose [Mass/Vol] 178 mg/dL High 82-115 [facility] Comment on above: Performed By: #### L AB17, [id number] ####Data Operations Manager: JAQUELIN MO ([id number])[facility]ITALAnton[facility] [place] (SBHLAB)[address] [place] [address] [place] Potassium [Moles/Vol] 4.4 mmol/L Normal 3.5-5.1 [facility] Comment on above: Result Comment: [facility] potassium values may be up to 0.5 mmol/L lower than serum values. Performed By: #### L AB17, [id number] ####Data Operations Manager: JAQUELIN MO ([phone])[facility] (SBHLAB)[address] Protein [Mass/Vol] 6.9 g/dL Normal 6.4-8.3 [facility] Comment on above: Performed By: #### L AB17, [id number] ####Data Operations Manager: JAQUELIN MO ([phone])[facility] (SBHLAB)[address] Sodium [Moles/Vol] 139 mmol/L Normal 136-145 [facility] Comment on above: Performed By: #### L AB17, [id number] ####Data Operations Manager: JAQUELIN MO ([id number])[facility] (SBHLAB)[address] Urea nitrogen [Mass/Vol] 49 mg/dL High 9-23 [facility] Comment on above: Performed By: #### L AB17, [id number] ####Data Operations Manager: JAQUELIN MO ([phone])[facility] (SBHLAB)[address] [place] [address] COVID-19, Flu A/B, and RSV C omboon 11-25-2024 Interpretation and review of laboratory results Normal [facility] Comprehensive metabolic 1998 panelon 11-25-2024 Albumin [Mass/Vol] 3.2 g/dL Low 3.4 - 4.8 g/dL [facility] ALP [Catalytic activity/Vol] 100 U/L 40 - 150 U/L [facility] ALT [Catalytic activity/Vol] 17 U/L NINF - 40 U/L [facility] Anion gap [Moles/Vol] 15 mmol/L High 3 - 13 mmol/L [facility] AST [Catalytic activity/Vol] 19 U/L NINF - 34 U/L [facility] Bilirubin [Mass/Vol] 0.5 mg/dL NINF - 1.2 mg/dL [facility] Calcium [Mass/Vol] 9.1 mg/dL 8.8 - 10. 0 mg/dL [facility] [employer] Chloride [Moles/Vol] 99 mmol/L 98 - 10 7 mmol/L [facility] [employer] CO2 [Moles/Vol] 25 mmol/L 23 - 31 mmol/L [facility] Creatinine [Mass/Vol] 5.14 mg/dL High 0.72 - 1.25 mg/dL [facility] GFR/1.73 sq M.predicted (S/P/Bld) [Vol rate/Area] 11.8 mL/min Low - PINF [facility] Comment on above: Calculation based on the Chronic Kidney Disease Epidemiology Collaboration (CKD-EPI) equation refit without adjustment for race Glucose [Mass/Vol] 178 mg/dL High 82 - 115 mg/dL [facility] Interpretation and review of laboratory results Abnormal [facility] Potassium [Moles/Vol] 4.4 mmol/L 3.5 - 5.1 mmol/L [facility] Comment on above: Plasma potassium reji ues may be up to 0.5 mmol/L lower than serum values. Protein [Mass/Vol] 6.9 g/dL 6.4 - 8.3 g/dL [facility] Sodium [Moles/Vol] 139 mmol/L 136 - 145 mmol/L [facility] Urea nitrogen [Mass/Vol] 49 mg/dL High 9 - 23 mg/dL [facility] Consulton 11-25-2024 Consult Pharmacy Managed Vancomycin [...] [x] CrCl 22.9 ml/min (if TARYN, no [employer]INEER) Consulted By: Dr. Adames Vancomycin Level: []Trough [...] Time: 2:57 PM Thea BakerD (available on [employer]) [facility] ECG 12-LEADon 11-25-2024 ECG 12-LEAD IMPRESSION: [...] On 11-25-2024 14:52:25 EDT by Omid Adames [facility] ED Nursing Noteon 11-25-2024 ED Nursing Note Pt refused pain meds , not my dose at assisted per pt [facility] ED Nursing Note Pt received dialysis today [facility] ED Provider Noteon ED Provider Note EMERGENCY DEPARTMENT ENCOUNTER Pt Name: José Manuel Ashton Birthdate 1960 Date of evaluation: 11/25/2024 ED Provider: Omid Adames MD CHIEF COMPLAINT Chief Complaint Patient presents with Altered Mental Status Pt presents to ED via EMS from [facility] for responding slowly and indicates he is [...] obvious evid (more content not included)... Normal [facility] LACTIC ACID WITH REFLEXon Lactate [Moles/Vol] 0.7 mmol/L Normal 0.5-2.2 [facility] Comment on above: Performed By: #### L [id number] ####Data Operations Manager: JAQUELIN MO ([phone])[facility] ([facility])[address] [place] [address] Lactate [Moles/Vol] 3.5 mmol/L High 0.5-2.2 [facility] Comment on above: Performed By: #### L [id number] ####Data Operations Manager: JAQUELIN MO ([id number])[facility] ([facility])[address] [place] [address] Laboratory - Chemistry and C hemistry - challengeon 11-25-2024 Glucose [Mass/Vol] 187 mg/dL High 70 - 100 mg/dL [facility] Glucose [Mass/Vol] 167 mg/dL High 70 - 100 mg/dL [facility] Glucose [Mass/Vol] 119 mg/dL High 70 - 100 mg/dL [facility] Lactate [Moles/Vol] 0.7 mmol/L 0.5 - 2. 2 mmol/L [facility] Lactate [Moles/Vol] 3.5 mmol/L High 0.5 - 2. 2 mmol/L [facility] Magnesium [Mass/Vol] 2 mg/dL 1.6 - 2 .6 mg/dL [facility] Laboratory - Microbiology an d Antimicrobial susceptibilityon 11-25-2024 FLUAV RNA BETO+probe Ql (Resp) Not detected Not Detected [facility] FLUBV RNA BETO+probe Ql (Resp) Not detected Not Detected [facility] RSV RNA BETO+probe Ql (Resp) Not detected Not Detected [facility] SARS-CoV-2 (COVID-19) RNA BETO+probe Ql (Resp) Not detected Not Detected [facility] SARS-CoV-2 (COVID-19) RNA BETO+probe Ql (Unsp spec) Methodology: real-time, RT-PCR The SARS-CoV-2, Flu A/B, and RSV Combo assay is intended for in vitro diagnostic use under the FDA Emergency Use Authorization (EUA). This test has not been FDA cleared or approved. In compliance with this authorization, please visit www.fda.gov/media/049452/d ownload or www.fda.gov/media/220189/d ownload to access the applicable information sheets. [facility] MAGNESIUMon 11-25-2024 Magnesium [Mass/Vol] 2.0 mg/dL Normal 1.6-2.6 [facility] Comment on above: Result Comment: FLAVIO Trejo COMMENTS: Higher values can be expected in females during menses. Performed By: #### L AB17, [id number] ####Data Operations Manager: JAQUELIN MO ([phone])[facility]ITAL[facility] [place] (SBHLAB)[address] [place] [address] Magnesium [Mass/Vol]on 11-25 Interpretation and review of laboratory results Normal [facility] Higher values can be expected in females during menses. [facility] No Panel Informationon 11-25 Interpretation and review of laboratory results Abnormal [facility] Performed by: Heatherantonette Daly [address] [place] [address] CLIA ID: [id number] [facility] Interpretation and review of laboratory results Abnormal [facility] Performed by: [facility] [address] [place] [address] CLIA ID: [id number] [facility] Interpretation and review of laboratory results Abnormal [facility] Performed by: [facility] D[facility] [address] [place] [address] CLIA ID: [id number] [facility] Interpretation and review of laboratory results Normal [facility] P [place] 23 degrees [facility] SD Interval 167 ms [facility] QRS [place] 49 degrees [facility] QRSD Interval 110 ms [facility] QT Interval 405 ms [facility] QTC Interval 468 ms [facility] T Wave [place] 62 degrees [facility] Sinus rhythm Low voltage, extremity leads [...] On 11-25-2024 14:52:25 EDT by Omid Adames [facility] Interpretation and review of laboratory results Abnormal [facility] SARS-COV-2, FLU A/B, AND RSV COMBOon [...] In compliance with this authorization, please visit www.fda.gov/media/370888/d ownload or www.fda.gov/media/084996/d ownload to access the applicable information sheets. Normal [facility] Comment on above: Performed By: #### L FR2012 ####Data Operations Manager: JAQUELIN MO ([phone])[facility] ([facility])[address] [place] [address] Vital signson 11-25-2024 Heart rate 80 /min bpm [facility] XR Chest Single viewon 11-25 No focal consolidati on or pulmonary edema. Report Dictated on Electronically Signed By: Kj Duran MD Electronically Signed Date/Time: 11/25/2024 12:40 PM EDT [facility] Patient Name: JOSÉ MANUEL YOON [...] are normal. The osseous structures are unremarkable. [facility] Kj Duran MD - 11/25/2024 [...] Electronically Signed Date/Time: 11/25/2024 12:40 PM EDT [facility] Radiology Study observation (narrative) [facility] XR Chest Single viewOrdered By: Kj Duran on 11-25-2024 [facility] [employer] Work Phone: Renal Profileon 10-14-2024 Albumin [Mass/Vol] 4.0 g/dL Normal 3.4-4.8 [facility] Comment on above: Order Comment: 409.1 Performed By: #### L [id number] #### [facility] [address] [place], [address] BUN/CRE 11.5 RATIO Normal 10-20 [facility] Comment on above: Order Comment: 409.1 Performed By: #### L 5003600 #### [facility] [address] [place], [address] Calcium [Mass/Vol] 9.5 mg/dL Normal 7.6-11.0 [facility] Comment on above: Order Comment: 409.1 Performed By: #### L 500.3600 #### [facility] [address] [place], [address] Chloride [Moles/Vol] 101 mmol/L Normal 98-108 [facility] Comment on above: Order Comment: 409.1 Performed By: #### L 500.3600 #### [facility] [address] [place], [address] CO2 [Moles/Vol] 23.8 mmol/L Normal 21.0-32.0 [facility] Comment on above: Order Comment: 409.1 Performed By: #### L 500.3600 #### [facility] [address] [place], [address] Creatinine [Mass/Vol] 6.18 mg/dL High 0.70-1.20 [facility] Comment on above: Order Comment: 409.1 Performed By: #### L 500.3600 #### [facility] [address] [place], [address] GAP 17 High 5-15 [facility] Comment on above: Order Comment: 409.1 Performed By: #### L 500.3600 #### [facility] [address] [place], [address] GFR/1.73 sq M.predicted among non-blacks MDRD (S/P/Bld) [Vol rate/Area] 9 mL/min/{1.73_m2} Low >60 [facility] Comment on above: Order Comment: 409.1 Result Comment: mL/m in/1.73m2 CKD-EPI Creatinine Equation (2020) Performed By: #### L 500.3600 #### [facility] [address] [place], [address] Glucose [Mass/Vol] 140 mg/dL High 70-99 [facility] Comment on above: Order Comment: 409.1 Performed By: #### L 500.3600 #### [facility] [address] [place], [address] Phosphate [Mass/Vol] 4.9 mg/dL High 2.7-4.5 [facility] Comment on above: Order Comment: 409.1 Performed By: #### L 500.3600 #### [facility] [address] [place], [address] Potassium [Moles/Vol] 5.2 mmol/L High 3.3-5.1 [facility] Comment on above: Order Comment: 409.1 Performed By: #### L 500.3600 #### [facility] [address] [place], [address] Sodium [Moles/Vol] 142 mmol/L Normal 133-145 [facility] Comment on above: Order Comment: 409.1 Performed By: #### L 500.3600 #### [facility] [address] [place], [address] Urea nitrogen [Mass/Vol] 71 mg/dL High 4-19 [facility] Comment on above: Order Comment: 409.1 Performed By: #### L 500.3600 #### [facility] [address] [place], [address] Hemoglobin A1con 10-07-2024 HbA1c (Bld) [Mass fraction] 5.2 % Normal <=5.6 [facility] Comment on above: Order Comment: 409.1 Result Comment: Norm al < 5.7 % Prediabetic 5.7 - 6.4 % Diabetic >or= 6.5 % Please note range changes. Performed By: #### L 501.9985 #### [facility] [address] [place], [address] Anion gap in Serum or Plasma Ordered By: Brittaney Garcia on 08-28-2024 Anion gap [Moles/Vol] 16 mmol/L High 5-15 [facility] BUN/creatinine ratioOrdered By: Brittaney Garcia on 08-28-2024 Urea nitrogen/Creatinine [Mass ratio] 10.1 mg/mg 10- [facility] Basic Metabolic Profile (BMP )on 08-28-2024 BUN/CRE 10.1 RATIO Normal - [facility] Comment on above: Order Comment: 413-1 Performed By: #### L 500.2500, L100.0500 #### [facility] [address] [place], [address] Calcium [Mass/Vol] 9.3 mg/dL Normal 7.6-11.0 [facility] Comment on above: Order Comment: 413-1 Performed By: #### L 500.2500, L100.0500 #### [facility] [address] [place], [address] Chloride [Moles/Vol] 100 mmol/L Normal 98-108 [facility] Comment on above: Order Comment: 413-1 Performed By: #### L 500.2500, L100.0500 #### [facility] [address] [place], [address] CO2 [Moles/Vol] 24.3 mmol/L Normal 21.0-32.0 [facility] Comment on above: Order Comment: 413-1 Performed By: #### L 500.2500, L100.0500 #### [facility] [address] [place], [address] Creatinine [Mass/Vol] 5.39 mg/dL High 0.70-1.20 [facility] Comment on above: Order Comment: 413-1 Performed By: #### L 500.2500, L100.0500 #### [facility] [address] [place], [address] GAP 16 High 5-15 [facility] Comment on above: Order Comment: 413-1 Performed By: #### L 500.2500, L100.0500 #### [facility] [address] [place], [address] GFR/1.73 sq M.predicted among non-blacks MDRD (S/P/Bld) [Vol rate/Area] 11 mL/min/{1.73_m2} Low >60 [facility] Comment on above: Order Comment: 413-1 Result Comment: mL/m in/1.73m2 CKD-EPI Creatinine Equation (2020) Performed By: #### L 500.2500, L100.0500 #### [facility] [address] [place], [address] Glucose [Mass/Vol] 155 mg/dL High 70-99 [facility] Comment on above: Order Comment: 413-1 Performed By: #### L 500.2500, L100.0500 #### [facility] [address] [place], [address] Potassium [Moles/Vol] 4.6 mmol/L Normal 3.3-5.1 [facility] Comment on above: Order Comment: 413-1 Performed By: #### L 500.2500, L100.0500 #### [facility] [address] [place], [address] Sodium [Moles/Vol] 140 mmol/L Normal 133-145 [facility] Comment on above: Order Comment: 413-1 Performed By: #### L 500.2500, L100.0500 #### [facility] [address] [place], [address] Urea nitrogen [Mass/Vol] 54 mg/dL High 4-19 [facility] Comment on above: Order Comment: 413-1 Performed By: #### L 500.2500, L100.0500 #### [facility] [address] [place], [address] CBC-Complete Blood Cnt No Di ffon 08-28-2024 Erythrocyte distribution width (RBC) [Ratio] 14.4 % Normal 11.6-14.6 [facility] Comment on above: Order Comment: 413-1 Performed By: #### L 500.2500, L100.0500 #### [facility] [address] [place], [address] Hematocrit (Bld) [Volume fraction] 28.0 % Low 40-54 [facility] Comment on above: Order Comment: 413-1 Performed By: #### L 500.2500, L100.0500 #### [facility] [address] [place], [address] Hemoglobin (Bld) [Mass/Vol] 8.9 g/dL Low 13.0-16.5 [facility] Comment on above: Order Comment: 413-1 Performed By: #### L 500.2500, L100.0500 #### [facility] [address] [place], [address] MCH (RBC) [Entitic mass] 29.5 pg Normal 27.0-32.0 [facility] Comment on above: Order Comment: 413-1 Performed By: #### L 500.2500, L100.0500 #### [facility] [address] [place], [address] MCHC (RBC) [Mass/Vol] 31.8 g/dL Low 32-36 [facility] Comment on above: Order Comment: 413-1 Performed By: #### L 500.2500, L100.0500 #### [facility] [address] [place], [address] MCV (RBC) [Entitic vol] 92.7 fL Normal 80-94 [facility] Comment on above: Order Comment: 413-1 Performed By: #### L 500.2500, L100.0500 #### [facility] [address] [place], [address] Platelet mean volume (Bld) [Entitic vol] 9.4 fL Normal 6.2-12.0 [facility] Comment on above: Order Comment: 413-1 Performed By: #### L 500.2500, L100.0500 #### [facility] [address] [place], [address] Platelets (Bld) [#/Vol] 263 10*3/uL Normal 150-450 [facility] Comment on above: Order Comment: 413-1 Performed By: #### L 500.2500, L100.0500 #### [facility] [address] [place], [address] RBC (Bld) [#/Vol] 3.02 10*6/uL Low 4.6-6.2 [facility] Comment on above: Order Comment: 413-1 Performed By: #### L 500.2500, L100.0500 #### [facility] [address] [place], [address] RDW SD 49.1 fl High 35.1-43.9 [facility] Comment on above: Order Comment: 413-1 Performed By: #### L 500.2500, L100.0500 #### [facility] [address] [place], [address] WBC (Bld) [#/Vol] 6.7 10*3/uL Normal 4.4-11.0 [facility] Comment on above: Order Comment: 413-1 Performed By: #### L 500.2500, L100.0500 #### [facility] [address] [place], [address] Carbon dioxide, total [Moles /volume] in Central venous bloodOrdered By: Brittaney Garcia on 08-28-2024 CO2 [Moles/Vol] 24.3 mmol/L 21.0-32.0 [facility] Chloride assayOrdered By: Lambert Garcia on 08-28-2024 Chloride [Moles/Vol] 100 mmol/L 98-108 [facility] Erythrocyte distribution wid th ratioOrdered By: Brittaney Garcia on 08-28-2024 Erythrocyte distribution width (RBC) [Ratio] 14.4 % 11.6-14.6 [facility] Erythrocyte distribution wid th standard deviationOrdered By: Brittaney Garcia on 08-28-2024 Erythrocyte distribution width (RBC) [Ratio] 49.1 fl High 35.1-43.9 [facility] Glomerular filtration rate ( GFR) estimation/1.73 sq m using serum, plasma, or whole bOrdered By: Brittaney Garcia on 08-28-2024 GFR/1.73 sq M.predicted among non-blacks MDRD (S/P/Bld) [Vol rate/Area] 11 mL/min/{1.73_m2} Low >60 [facility] Comment on above: mL/min/1.73m2 CKD-EP I Creatinine Equation (2020) Hematocrit Auto (Bld) [Volum e fraction]Ordered By: Brittaney Garcia on 08-28-2024 Hematocrit (Bld) [Volume fraction] 28.0 % Low 40-54 [facility] Hemoglobin measurementOrdere d By: Brittaney Garcia on 08-28-2024 Hemoglobin (Bld) [Mass/Vol] 8.9 g/dL Low 13.0-16.5 [facility] MCV (mean corpuscular volume ) determinationOrdered By: Brittaney Garcia on 08-28-2024 MCV (RBC) [Entitic vol] 92.7 fL 80-94 [facility] Mean corpuscular hemoglobin (MCH) determinationOrdered By: Brittaney Garcia on 08-28-2024 MCH (RBC) [Entitic mass] 29.5 pg 27.0-32.0 [facility] Mean corpuscular hemoglobin concentration (MCHC) determinationOrdered By: Brittaney Garcia on 08-28-2024 MCHC (RBC) [Mass/Vol] 31.8 g/dL Low 32-36 [facility] Mean platelet volume determi nationOrdered By: Brittaney Garcia on 08-28-2024 Platelet mean volume (Bld) [Entitic vol] 9.4 fL 6.2-12.0 [facility] Platelet countOrdered By: Lambert Garcia on 08-28-2024 Platelets (Bld) [#/Vol] 263 10*3/uL 150-450 [facility] Potassium measurement (mass/ volume)Ordered By: Brittaney Garcia on 08-28-2024 Potassium (Unsp spec) [Mass/Vol] 4.6 mmol/L 3.3-5.1 [facility] RBC Auto (Bld) [#/Vol]Ordere d By: Brittaney Garcia on 08-28-2024 RBC (Bld) [#/Vol] 3.02 10*6/uL Low 4.6-6.2 [facility] Serum creatinine measurement (mass/volume)Ordered By: Brittaney Garcia on 08-28-2024 Creatinine [Mass/Vol] 5.39 mg/dL High 0.70-1.20 [facility] Serum glucose measurement (m ass/volume)Ordered By: Brittaney Garcia on 08-28-2024 Glucose [Mass/Vol] 155 mg/dL High 70-99 [facility] Serum or plasma calcium patt urement (mass/volume)Ordered By: Brittaney Garcia on 08-28-2024 Calcium [Mass/Vol] 9.3 mg/dL 7.6-11.0 [facility] Serum or plasma urea nitroge n measurement (mass/volume)Ordered By: Brittaney Garcia on 08-28-2024 Urea nitrogen [Mass/Vol] 54 mg/dL High 4-19 [facility] Sodium levelOrdered By: Jd Garcia on 08-28-2024 Sodium [Moles/Vol] 140 mmol/L 133-145 [facility] White blood cell (WBC) count Ordered By: Brittaney Garcia on 08-28-2024 WBC (Bld) [#/Vol] 6.7 10*3/uL 4.4-11.0 [facility]-2024 CASE MANAGEM Normal [facility] CASE MANAGEM Normal [facility] CASE MANAGEM Normal [facility] CBC panel Auto (Bld)on 07-24 Erythrocyte distribution width (RBC) [Ratio] 13.2 % Normal 11.5-15.0 [facility] Comment on above: Order Comment: Speci men Type: BLOOD SPECIMENOrdering Facility: [facility] Address: [address] [place] [address] Performed By: #### 5 8410-2 ####[facility]ATORYCLIA [id number] [address] Hematocrit (Bld) [Volume fraction] 26.9 % Low 39.0-51.0 [facility] Comment on above: Order Comment: Speci men Type: BLOOD SPECIMENOrdering Facility: [facility] Address: [address] [place] [address] Performed By: #### 5 8410-2 ####[facility] LABORATORYCLIA [id number] [address] [place] Hemoglobin (Bld) [Mass/Vol] 8.8 g/dL Low 13.0-17.0 [facility] Comment on above: Order Comment: Speci men Type: BLOOD SPECIMENOrdering Facility: [facility] Address: [address] [place] [address] Performed By: #### 5 8410-2 ####[facility] LABORATORYCLIA [id number] [place] [address] [place] MCH (RBC) [Entitic mass] 28.5 pg Normal 26.0-34.0 [facility] Comment on above: Order Comment: Speci men Type: BLOOD SPECIMENOrdering Facility: [facility] Address: [address] [place] [address] Performed By: #### 5 8410-2 ####[facility] LABORATORYCLIA [id number] [address] [place] MCHC (RBC) [Mass/Vol] 32.7 g/dL Normal 30.5-36.0 [facility] Comment on above: Order Comment: Speci men Type: BLOOD SPECIMENOrdering Facility: [facility] Address: [address] [place] [address] Performed By: #### 5 8410-2 ####[facility] LABORATORYCLIA [id number] [place] [address] [place] MCV (RBC) [Entitic vol] 87.1 fL Normal 80.0-100.0 [facility] Comment on above: Order Comment: Speci men Type: BLOOD SPECIMENOrdering Facility: [facility] Address: [address] [place] [address] Performed By: #### 5 8410-2 ####[facility] LABORATORYCLIA [id number] [place] [address] [place] Nucleated RBC (Bld) [#/Vol] 10*3/uL Normal <0.01 [facility] Comment on above: Order Comment: Speci men Type: BLOOD SPECIMENOrdering Facility: [facility] Address: [address] [place] [address] Performed By: #### 5 8410-2 ####[facility] LABORATORYCLIA [id number] [place] [address] [place] Platelet mean volume (Bld) [Entitic vol] 9.2 fL Normal 9.0-12.7 [facility] Comment on above: Order Comment: Speci men Type: BLOOD SPECIMENOrdering Facility: [facility] Address: [address] [place] [address] Performed By: #### 5 8410-2 ####[facility] LABORATORYCLIA [id number] [place] [address] [place] Platelets (Bld) [#/Vol] 168 10*3/uL Normal 150-400 [facility] Comment on above: Order Comment: Speci men Type: BLOOD SPECIMENOrdering Facility: [facility] Address: [address] [place] [address] Performed By: #### 5 8410-2 ####[facility] LABORATORYCLIA [id number] [place] [address] [place] RBC (Bld) [#/Vol] 3.09 10*6/uL Low 4.20-6.00 [facility] Comment on above: Order Comment: Speci men Type: BLOOD SPECIMENOrdering Facility: [facility] Address: [address] [place] [id number] Performed By: #### 5 8410-2 ####[facility] LABORATORYCLIA [id number] [place] [address] [place] WBC (Bld) [#/Vol] 6.64 10*3/uL Normal 3.70-11.00 [facility] Comment on above: Order Comment: Speci men Type: BLOOD SPECIMENOrdering Facility: [facility] Address: [address] [place] [address] Performed By: #### 5 8410-2 ####[facility] LABORATORYCLIA [id number] [address] OF [facility] CNDSon 07-24-2024 CNDS Normal [facility] 07-24-2024 CNPN Telephone (HCSIND) -- JOSÉ MANUEL ASHTON ([id number]) 1960 M T Date Time Provider Department [...] 01/17/2022 H/O (more content not included)... Normal [facility] CONSULT PROGon 07-24-2024 CONSULT PROG Normal [facility] Comprehensive metabolic 2000 panelon 07-24-2024 Albumin [Mass/Vol] 3.2 g/dL Low 3.9-4.9 [facility] Comment on above: Order Comment: Speci men Type: BLOOD SPECIMENOrdering Facility: [facility] Address: [address] [place] [address] Performed By: #### 5 0190-8, 2275-07, ####[facility] LABORATORYCLIA [id number] [place] [address] [place] ALP [Catalytic activity/Vol] 107 U/L Normal 38-113 [facility] Comment on above: Order Comment: Speci men Type: BLOOD SPECIMENOrdering Facility: [facility] Address: [address] [place] [id number] Performed By: #### 5 0190-8, 2275-, 02534-6 ####[facility] LABORATORYCLIA [id number] [place] [id number] [place] ALT [Catalytic activity/Vol] 17 U/L Normal 10-54 [facility] Comment on above: Order Comment: Speci men Type: BLOOD SPECIMENOrdering Facility: [facility] Address: [address] [place] [id number] Performed By: #### 5 0190-8, 2275-4, 00321-1 ####[facility] LABORATORYCLIA [id number] [place] [address] [place] Anion gap [Moles/Vol] 13 mmol/L Normal 8-15 [facility] Comment on above: Order Comment: Speci men Type: BLOOD SPECIMENOrdering Facility: [facility] Address: [address] [place] [address] Performed By: #### 5 0190-8, 2275-07, 25768-8 ####[facility] LABORATORYCLIA [id number] [address] [place] AST [Catalytic activity/Vol] 16 U/L Normal 14-40 [facility] Comment on above: Order Comment: Speci men Type: BLOOD SPECIMENOrdering Facility: [facility] Address: [address] [place] [address] Performed By: #### 5 0190-8, 2275-07, 37701-0 ####[facility] LABORATORYCLIA [id number] [address] [place] Bilirubin [Mass/Vol] 0.2 mg/dL Normal 0.2-1.3 [facility] Comment on above: Order Comment: Speci men Type: BLOOD SPECIMENOrdering Facility: [facility] Address: [address] [place] [address] Performed By: #### 5 0190-8, 4, 30001-9 ####[facility] LABORATORYCLIA [id number] [address] [place] Calcium [Mass/Vol] 8.7 mg/dL Normal 8.5-10.2 [facility] Comment on above: Order Comment: Speci men Type: BLOOD SPECIMENOrdering Facility: [facility] Address: [address] [place] [address] Performed By: #### 5 0190-8, 6-4, 14673-4 ####[facility] LABORATORYCLIA [id number] [place] [address] [place] Chloride [Moles/Vol] 99 mmol/L Normal 98-107 [facility] Comment on above: Order Comment: Luz vaughan Type: BLOOD SPECIMENOrdering Facility: [facility] Address: [address] [place] [address] Performed By: #### 5 0190-8, 6-4, 72833-7 ####[facility] LABORATORYCLIA [id number] [place] [address] [place] CO2 [Moles/Vol] 26 mmol/L Normal 22-30 [facility] Comment on above: Order Comment: Luz vaughan Type: BLOOD SPECIMENOrdering Facility: [facility] Address: [address] [place] [address] Performed By: #### 5 0190-8, 2275-4, 76504-9 ####[facility] LABORATORYCLIA [id number] [place] [address] [place] Creatinine [Mass/Vol] 4.85 mg/dL High 0.73-1.22 [facility] Comment on above: Order Comment: Luz vaughan Type: BLOOD SPECIMENOrdering Facility: [facility] Address: [address] [place] [address] Performed By: #### 5 0190-8, 2275-4, 14959-5 ####[facility] LABORATORYCLIA [id number] [address] OF [facility] Creatinine and Glomerular filtration rate.predicted panel (S/P/Bld) 13 mL/min/1.73m??? Low >=60 [facility] Comment on above: Order Comment: Luz vaughan Type: BLOOD SPECIMENOrdering Facility: [facility] Address: [address] [place] [address] Result Comment: Breanne mated Glomerular Filtration Rate [...] GFR. Performed By: #### 5 0190-8, 6-4, 21343-5 ####[facility] LABORATORYCLIA [id number] [place] [address] [place] Glucose [Mass/Vol] 153 mg/dL High 74-99 [facility] Comment on above: Order Comment: Luz vaughan Type: BLOOD SPECIMENOrdering Facility: [facility] Address: [address] [place] [address] Result Comment: The [place] [employer] (ADA) provides guidance for cutoff [...] Standards of Medical Care in Diabetes 2016, [place] [employer]. Diabetes Care. 2016.39(Suppl 1). Performed By: #### 5 0190-8, 2275-, 28636-0 ####[facility] LABORATORYCLIA [id number] [place] [address] [place] Potassium [Moles/Vol] 4.7 mmol/L Normal 3.7-5.1 [facility] Comment on above: Order Comment: Luz vaughan Type: BLOOD SPECIMENOrdering Facility: [facility] Address: [address] [place] [address] Performed By: #### 5 0190-8, 6-4, 81046-8 ####[facility] LABORATORYCLIA [id number] [place] [address] [place] Protein [Mass/Vol] 6.2 g/dL Low 6.3-8.0 [facility] Comment on above: Order Comment: Luz vaughan Type: BLOOD SPECIMENOrdering Facility: [facility] Address: [address] [place] [address] Performed By: #### 5 0190-8, 2275-4, 23337-7 ####[facility] LABORATORYCLIA [id number] [place] [address] [place] Sodium [Moles/Vol] 138 mmol/L Normal 136-144 [facility] Comment on above: Order Comment: Speci men Type: BLOOD SPECIMENOrdering Facility: [facility] Address: [facility] [place] [address] Performed By: #### 5 0190-8, 2275-07, 32574-4 ####[facility] LABORATORYCLIA [id number] [place] [address] [place] Urea nitrogen [Mass/Vol] 48 mg/dL High 9-24 [facility] Comment on above: Order Comment: Speci men Type: BLOOD SPECIMENOrdering Facility: [facility] Address: [facility] [place] [address] Performed By: #### 5 0190-8, 2275-07, ####SE[facility] LABORATORYCLIA [id number] [place] [address] [place] Ferritin SerPl-mCncon 2024 Ferritin [Mass/Vol] 377.6 ng/mL Normal 30.3-565.7 [facility] Comment on above: Order Comment: Speci men Type: BLOOD SPECIMENOrdering Facility: [facility] Address: [facility] [place] [address] Performed By: #### 5 0190-8, 2275-07, 19188-6 ####SEBRING LABORATORYCLIA [id number] [place] [address] [place] Iron and Iron binding capaci ty panelon 07-24-2024 Iron [Mass/Vol] 31 ug/dL Low 41-186 [facility] Comment on above: Order Comment: Speci men Type: BLOOD SPECIMENOrdering Facility: [facility] Address: [facility] [place] [address] Performed By: #### 5 0190-8, 2275-07, 02099-8 ####SEBRING LABORATORYCLIA [id number] [address] [place] Iron binding capacity [Mass/Vol] 140 ug/dL Low 232-386 [facility] Comment on above: Order Comment: Speci men Type: BLOOD SPECIMENOrdering Facility: [facility] Address: [address] [place] [address] Performed By: #### 5 0190-8, 2276-4, 35972-4 ####ADKINS LABORATORYCLIA [id number] [place] [id number] [place] Iron/TIBC [Molar ratio] 22.1 % Normal 15.0-57.0 [facility] Comment on above: Order Comment: Speci men Type: BLOOD SPECIMENOrdering Facility: [facility] Address: [address] [place] [address] Performed By: #### 5 0190-8, 6-4, 65896-4 ####SEBRING LABORATORYCLIA [id number] [address] [place] NURSING PROGon 07-24-2024 NURSING PROG Normal [facility] NUTRITIONon 07-24-2024 NUTRITION Normal [facility] CASE MANAGEMon 07-23-2024 CASE MANAGEM Normal [facility] CASE MANAGEM Normal [facility] CBC panel Auto (Bld)on 07-23 Erythrocyte distribution width (RBC) [Ratio] 13.1 % Normal 11.5-15.0 [facility] Comment on above: Order Comment: Speci men Type: BLOOD SPECIMENOrdering Facility: [facility] Address: [address] [place] [address] Performed By: #### 5 8410-2 ####ADKINS LABORATORYCLIA [id number] [place] [id number] [facility] Hematocrit (Bld) [Volume fraction] 27.2 % Low 39.0-51.0 [facility] Comment on above: Order Comment: Speci men Type: BLOOD SPECIMENOrdering Facility: [facility] Address: [address] [place] [address] Performed By: #### 5 8410-2 ####ADKINS LABORATORYCLIA [id number] [address] [place] Hemoglobin (Bld) [Mass/Vol] 8.9 g/dL Low 13.0-17.0 [facility] Comment on above: Order Comment: Speci men Type: BLOOD SPECIMENOrdering Facility: [facility] Address: [address] [place] [address] Performed By: #### 5 8410-2 ####ADKINS LABORATORYCLIA [id number] [address] MCH (RBC) [Entitic mass] 28.5 pg Normal 26.0-34.0 [facility] Comment on above: Order Comment: Speci men Type: BLOOD SPECIMENOrdering Facility: [facility] Address: [address] [place] [address] Performed By: #### 5 8410-2 ####ADKINS LABORATORYCLIA [id number] [address] MCHC (RBC) [Mass/Vol] 32.7 g/dL Normal 30.5-36.0 [facility] Comment on above: Order Comment: Speci men Type: BLOOD SPECIMENOrdering Facility: [facility] Address: [address] [place] [address] Performed By: #### 5 8410-2 ####ADKINS LABORATORYCLIA [id number] [address] MCV (RBC) [Entitic vol] 87.2 fL Normal 80.0-100.0 [facility] Comment on above: Order Comment: Speci men Type: BLOOD SPECIMENOrdering Facility: [facility] Address: [address] [place] [address] Performed By: #### 5 8410-2 ####ADKINS LABORATORYCLIA [id number] [address] Nucleated RBC (Bld) [#/Vol] 10*3/uL Normal <0.01 [facility] Comment on above: Order Comment: Speci men Type: BLOOD SPECIMENOrdering Facility: [facility] Address: [address] [place] [address] Performed By: #### 5 8410-2 ####ADKINS LABORATORYCLIA [id number] [place] [address] [place] Platelet mean volume (Bld) [Entitic vol] 9.5 fL Normal 9.0-12.7 [facility] Comment on above: Order Comment: Speci men Type: BLOOD SPECIMENOrdering Facility: [facility] Address: [address] [place] [address] Performed By: #### 5 8410-2 ####ADKINS LABORATORYCLIA [id number] [place] [address] [place] Platelets (Bld) [#/Vol] 146 10*3/uL Low 150-400 [facility] Comment on above: Order Comment: Speci men Type: BLOOD SPECIMENOrdering Facility: [facility] Address: [address] [place] [address] Performed By: #### 5 8410-2 ####SEBRING LABORATORYCLIA [id number] [place] [address] [place] RBC (Bld) [#/Vol] 3.12 10*6/uL Low 4.20-6.00 [facility] Comment on above: Order Comment: Speci men Type: BLOOD SPECIMENOrdering Facility: [facility] Address: [address] [place] [address] Performed By: #### 5 8410-2 ####ADKINS LABORATORYCLIA [id number] [address] [place] WBC (Bld) [#/Vol] 4.90 10*3/uL Normal 3.70-11.00 [facility] Comment on above: Order Comment: Speci men Type: BLOOD SPECIMENOrdering Facility: [facility] Address: [address] [place] [address] Performed By: #### 5 8410-2 ####ADKINS LABORATORYCLIA [id number] [place] [id number] [facility] [place] CONSULT PROGon 07-23-2024 CONSULT PROG Normal [facility] Comprehensive metabolic 2000 panelon 07-23-2024 Albumin [Mass/Vol] 3.0 g/dL Low 3.9-4.9 [facility] Comment on above: Order Comment: Speci men Type: BLOOD SPECIMENOrdering Facility: [facility] Address: [address] [place] [address] Performed By: #### 2 4323-8 ####ADKINS LABORATORYCLIA [id number] [address] [place] ALP [Catalytic activity/Vol] 104 U/L Normal 38-113 [facility] Comment on above: Order Comment: Speci men Type: BLOOD SPECIMENOrdering Facility: [facility] Address: [address] [place] [address] Performed By: #### 2 4323-8 ####ADKINS LABORATORYCLIA [id number] [place] [address] [place] ALT [Catalytic activity/Vol] 13 U/L Normal 10-54 [facility] Comment on above: Order Comment: Speci men Type: BLOOD SPECIMENOrdering Facility: [facility] Address: [address] [place] [address] Performed By: #### 2 4323-8 ####ADKINS LABORATORYCLIA [id number] [place] [address] [place] Anion gap [Moles/Vol] 10 mmol/L Normal 8-15 [facility] Comment on above: Order Comment: Speci men Type: BLOOD SPECIMENOrdering Facility: [facility] Address: [address] [place] [address] Performed By: #### 2 4323-8 ####ADKINS LABORATORYCLIA [id number] [address] [place] AST [Catalytic activity/Vol] 16 U/L Normal 14-40 [facility] Comment on above: Order Comment: Speci men Type: BLOOD SPECIMENOrdering Facility: [facility] Address: [address] [place] [address] Performed By: #### 2 4323-8 ####ADKINS LABORATORYCLIA [id number] [place] [address] [place] Bilirubin [Mass/Vol] 0.3 mg/dL Normal 0.2-1.3 [facility] Comment on above: Order Comment: Speci men Type: BLOOD SPECIMENOrdering Facility: [facility] Address: [address] [place] [address] Performed By: #### 2 4323-8 ####ADKINS LABORATORYCLIA [id number] [place] [address] [place] Calcium [Mass/Vol] 8.3 mg/dL Low 8.5-10.2 [facility] Comment on above: Order Comment: Speci men Type: BLOOD SPECIMENOrdering Facility: [facility] Address: [address] [place] [address] Performed By: #### 2 4323-8 ####ADKINS LABORATORYCLIA [id number] [place] [address] [place] Chloride [Moles/Vol] 98 mmol/L Normal 98-107 [facility] Comment on above: Order Comment: Speci men Type: BLOOD SPECIMENOrdering Facility: [facility] Address: [address] [place] [address] Performed By: #### 2 4323-8 ####ADKINS LABORATORYCLIA [id number] [place] [address] [place] CO2 [Moles/Vol] 28 mmol/L Normal 22-30 [facility] Comment on above: Order Comment: Speci men Type: BLOOD SPECIMENOrdering Facility: [facility] Address: [address] [place] [address] Performed By: #### 2 4323-8 ####ADKINS LABORATORYCLIA [id number] [place] [address] [place] Creatinine [Mass/Vol] 3.84 mg/dL High 0.73-1.22 [facility] Comment on above: Order Comment: Speci men Type: BLOOD SPECIMENOrdering Facility: [facility] Address: [address] [place] [address] Performed By: #### 2 4323-8 ####ADKINS LABORATORYCLIA [id number] [address] [place] Creatinine and Glomerular filtration rate.predicted panel (S/P/Bld) 17 mL/min/1.73m??? Low >=60 [facility] Comment on above: Order Comment: Speci men Type: BLOOD SPECIMENOrdering Facility: [facility] Address: [address] [place] [address] Result Comment: Breanne mated Glomerular Filtration Rate [...] actual GFR. Performed By: #### 2 4323-8 ####SEBRING LABORATORYCLIA [id number] [place] [id number] [place] Glucose [Mass/Vol] 153 mg/dL High 74-99 [facility] Comment on above: Order Comment: Luz vaughan Type: BLOOD SPECIMENOrdering Facility: [facility] Address: [address] [place] [address] Result Comment: The [place] [employer] (ADA) provides guidance for cutoff [...] Standards of Medical Care in Diabetes 2016, [place] [employer]. Diabetes Care. 2016.39(Suppl 1). Performed By: #### 2 4323-8 ####SEBRING LABORATORYCLIA [id number] [place] [address] [place] Potassium [Moles/Vol] 4.2 mmol/L Normal 3.7-5.1 [facility] Comment on above: Order Comment: Luz vaughan Type: BLOOD SPECIMENOrdering Facility: [facility] Address: [address] [place] [id number] Performed By: #### 2 4323-8 ####SEBRING LABORATORYCLIA [id number] [place] [address] [place] Protein [Mass/Vol] 6.1 g/dL Low 6.3-8.0 [facility] Comment on above: Order Comment: Speci men Type: BLOOD SPECIMENOrdering Facility: [facility] Address: [address] [place] [address] Performed By: #### 2 4323-8 ####ADKINS LABORATORYCLIA [id number] [place] [address] [place] Sodium [Moles/Vol] 136 mmol/L Normal 136-144 [facility] Comment on above: Order Comment: Speci men Type: BLOOD SPECIMENOrdering Facility: [facility] Address: [address] [place] [address] Performed By: #### 2 4323-8 ####ADKINS LABORATORYCLIA [id number] [place] [address] [place] Urea nitrogen [Mass/Vol] 31 mg/dL High 9-24 [facility] Comment on above: Order Comment: Speci men Type: BLOOD SPECIMENOrdering Facility: [facility] Address: [address] [place] [address] Performed By: #### 2 4323-8 ####ADKINS LABORATORYCLIA [id number] [place] [address] [place] THERAPY NTon 07-23-2024 THERAPY NT Normal [facility] THERAPY NT Normal [facility] THERAPY NT Normal [facility] Urinalysis complete panel (U )on 07-23-2024 Bilirubin Ql (U) Negative Normal Negative [facility] Comment on above: Order Comment: Speci men Type: URINE SPECIMENOrdering Facility: [facility] Address: [address] [place] [address] Performed By: #### 2 4356-8 ####ADKINS LABORATORYCLIA [id number] [address] [place] Clarity (Unsp spec) Slightly Cloudy Abnormal Clear [facility] Comment on above: Order Comment: Speci men Type: URINE SPECIMENOrdering Facility: [facility] Address: [address] [place] [address] Performed By: #### 2 4356-8 ####ADKINS LABORATORYCLIA [id number] [place] [address] [place] [facility] Color (U) Yellow Normal Yellow [facility] Comment on above: Order Comment: Speci men Type: URINE SPECIMENOrdering Facility: [facility] Address: [address] [place] [address] Performed By: #### 2 4356-8 ####ADKINS LABORATORYCLIA [id number] [place] [address] [facility] [place] Glucose Test strip (U) [Mass/Vol] 1+ Abnormal Negative [facility] Comment on above: Order Comment: Speci men Type: URINE SPECIMENOrdering Facility: [facility] Address: [address] [place] [address] Performed By: #### 2 4356-8 ####ADKINS LABORATORYCLIA [id number] [address] [place] Granular casts (Urine sed) [#/Area] 1-3 /LPF Abnormal 0 /LPF [facility] Comment on above: Order Comment: Speci men Type: URINE SPECIMENOrdering Facility: [facility] Address: [address] [place] [address] Performed By: #### 2 4356-8 ####ADKINS LABORATORYCLIA [id number] [address] [place] Hemoglobin Ql (U) Negative Normal Negative [facility] Comment on above: Order Comment: Speci men Type: URINE SPECIMENOrdering Facility: [facility] Address: [address] [place] [address] Performed By: #### 2 4356-8 ####ADKINS LABORATORYCLIA [id number] [place] [address] [place] Hyaline casts (Urine sed) [#/Area] 1-3 /LPF Abnormal 0 /LPF [facility] Comment on above: Order Comment: Speci men Type: URINE SPECIMENOrdering Facility: [facility] Address: [address] [place] [address] Performed By: #### 2 4356-8 ####ADKINS LABORATORYCLIA [id number] [place] [address] [facility] [place] Ketones Ql (U) Negative Normal Negative [facility] Comment on above: Order Comment: Speci men Type: URINE SPECIMENOrdering Facility: [facility] Address: [address] [place] [address] Performed By: #### 2 4356-8 ####ADKINS LABORATORYCLIA [id number] [place] [address] [place] Leukocyte esterase Test strip Ql (U) Negative Normal Negative [facility] Comment on above: Order Comment: Speci men Type: URINE SPECIMENOrdering Facility: [facility] Address: [address] [place] [address] Performed By: #### 2 4356-8 ####ADKINS LABORATORYCLIA [id number] [place] [address] [place] Nitrite Ql (U) Negative Normal Negative [facility] Comment on above: Order Comment: Speci men Type: URINE SPECIMENOrdering Facility: [facility] Address: [address] [place] [address] Performed By: #### 2 4356-8 ####ADKINS LABORATORYCLIA [id number] [place] [address] [place] pH (U) 6.0 [pH] Normal 5.0-8.0 [facility] Comment on above: Order Comment: Speci men Type: URINE SPECIMENOrdering Facility: [facility] Address: [address] [place] [address] Performed By: #### 2 4356-8 ####ADKINS LABORATORYCLIA [id number] [place] [address] [place] Protein (U) [Mass/Vol] 3+ Abnormal Negative [facility] Comment on above: Order Comment: Speci men Type: URINE SPECIMENOrdering Facility: [facility] Address: [address] [place] [address] Performed By: #### 2 4356-8 ####ADKINS LABORATORYCLIA [id number] [place] [address] [place] RBC LM.HPF (Urine sed) [#/Area] 0-3 /HPF Normal 0-3 /HPF [facility] Comment on above: Order Comment: Speci men Type: URINE SPECIMENOrdering Facility: [facility] Address: [address] [place] [address] Performed By: #### 2 4356-8 ####ADKINS LABORATORYCLIA [id number] [address] Specific gravity (U) [Rel density] 1.020 Normal 1.005-1.030 [facility] Comment on above: Order Comment: Speci men Type: URINE SPECIMENOrdering Facility: [facility] Address: [address] [place] [address] Performed By: #### 2 4356-8 ####SEBRING LABORATORYCLIA [id number] [address] Urobilinogen Ql (U) 0.2 EU/dL Normal 0.2-1.0 EU/dL [facility] Comment on above: Order Comment: Speci men Type: URINE SPECIMENOrdering Facility: [facility] Address: [address] [place] [address] Performed By: #### 2 4356-8 ####SEBRING LABORATORYCLIA [id number] [address] WBC LM.HPF (Urine sed) [#/Area] 0-5 /HPF Normal 0-5 /HPF [facility] Comment on above: Order Comment: Speci men Type: URINE SPECIMENOrdering Facility: [facility] Address: [address] [place] [address] Performed By: #### 2 4356-8 ####SEBRING LABORATORYCLIA [id number] [address] CASE MANAGEMon 07-22-2024 CASE MANAGEM Normal [facility] CBC panel Auto (Bld)on 07-22 Erythrocyte distribution width (RBC) [Ratio] 13.1 % Normal 11.5-15.0 [facility] Comment on above: Order Comment: Speci men Type: BLOOD SPECIMENOrdering Facility: [facility] Address: [address] [place] [address] Performed By: #### 5 8410-2 ####SEBRING LABORATORYCLIA [id number] [address] Hematocrit (Bld) [Volume fraction] 27.0 % Low 39.0-51.0 [facility] Comment on above: Order Comment: Speci men Type: BLOOD SPECIMENOrdering Facility: [facility] Address: [address] [place] [address] Performed By: #### 5 8410-2 ####ADKINS LABORATORYCLIA [id number] [address] [place] Hemoglobin (Bld) [Mass/Vol] 9.0 g/dL Low 13.0-17.0 [facility] Comment on above: Order Comment: Speci men Type: BLOOD SPECIMENOrdering Facility: [facility] Address: [address] [place] [address] Performed By: #### 5 8410-2 ####ADKINS LABORATORYCLIA [id number] [address] MCH (RBC) [Entitic mass] 29.0 pg Normal 26.0-34.0 [facility] Comment on above: Order Comment: Speci men Type: BLOOD SPECIMENOrdering Facility: [facility] Address: [address] [place] [address] Performed By: #### 5 8410-2 ####ADKINS LABORATORYCLIA [id number] [address] MCHC (RBC) [Mass/Vol] 33.3 g/dL Normal 30.5-36.0 [facility] Comment on above: Order Comment: Speci men Type: BLOOD SPECIMENOrdering Facility: [facility] Address: [address] [place] [address] Performed By: #### 5 8410-2 ####ADKINS LABORATORYCLIA [id number] [address] MCV (RBC) [Entitic vol] 87.1 fL Normal 80.0-100.0 [facility] Comment on above: Order Comment: Speci men Type: BLOOD SPECIMENOrdering Facility: [facility] Address: [address] [place] [address] Performed By: #### 5 8410-2 ####ADKINS LABORATORYCLIA [id number] [place] [address] [place] Nucleated RBC (Bld) [#/Vol] 10*3/uL Normal <0.01 [facility] Comment on above: Order Comment: Speci men Type: BLOOD SPECIMENOrdering Facility: [facility] Address: [address] [place] [address] Performed By: #### 5 8410-2 ####ADKINS LABORATORYCLIA [id number] [place] [address] [place] Platelet mean volume (Bld) [Entitic vol] 9.0 fL Normal 9.0-12.7 [facility] Comment on above: Order Comment: Speci men Type: BLOOD SPECIMENOrdering Facility: [facility] Address: [address] [place] [address] Performed By: #### 5 8410-2 ####ADKINS LABORATORYCLIA [id number] [address] [place] Platelets (Bld) [#/Vol] 147 10*3/uL Low 150-400 [facility] Comment on above: Order Comment: Speci men Type: BLOOD SPECIMENOrdering Facility: [facility] Address: [address] [place] [address] Performed By: #### 5 8410-2 ####ADKINS LABORATORYCLIA [id number] [address] [place] RBC (Bld) [#/Vol] 3.10 10*6/uL Low 4.20-6.00 [facility] Comment on above: Order Comment: Speci men Type: BLOOD SPECIMENOrdering Facility: [facility] Address: [address] [place] [address] Performed By: #### 5 8410-2 ####ADKINS LABORATORYCLIA [id number] [address] [place] WBC (Bld) [#/Vol] 4.92 10*3/uL Normal 3.70-11.00 [facility] Comment on above: Order Comment: Speci men Type: BLOOD SPECIMENOrdering Facility: [facility] Address: [address] [place] [address] Performed By: #### 5 8410-2 ####ADKINS LABORATORYCLIA [id number] [place] [address] [place] CONSULT PROGon 07-22-2024 CONSULT PROG Normal [facility] Comprehensive metabolic 2000 panelon 07-22-2024 Albumin [Mass/Vol] 2.9 g/dL Low 3.9-4.9 [facility] Comment on above: Order Comment: Speci men Type: BLOOD SPECIMENOrdering Facility: [facility] Address: [address] [place] [address] Performed By: #### 2 4323-8 ####ADKINS LABORATORYCLIA [id number] [place] [address] [place] ALP [Catalytic activity/Vol] 102 U/L Normal 38-113 [facility] Comment on above: Order Comment: Speci men Type: BLOOD SPECIMENOrdering Facility: [facility] Address: [address] [place] [address] Performed By: #### 2 4323-8 ####ADKINS LABORATORYCLIA [id number] [address] [place] ALT [Catalytic activity/Vol] 12 U/L Normal 10-54 [facility] Comment on above: Order Comment: Speci men Type: BLOOD SPECIMENOrdering Facility: [facility] Address: [address] [place] [address] Performed By: #### 2 4323-8 ####ADKINS LABORATORYCLIA [id number] [place] [address] [place] Anion gap [Moles/Vol] 11 mmol/L Normal 8-15 [facility] Comment on above: Order Comment: Speci men Type: BLOOD SPECIMENOrdering Facility: [facility] Address: [address] [place] [address] Performed By: #### 2 4323-8 ####ADKINS LABORATORYCLIA [id number] [place] [address] [place] AST [Catalytic activity/Vol] 18 U/L Normal 14-40 [facility] Comment on above: Order Comment: Speci men Type: BLOOD SPECIMENOrdering Facility: [facility] Address: [address] [place] [address] Performed By: #### 2 4323-8 ####ADKINS LABORATORYCLIA [id number] [place] [address] [place] Bilirubin [Mass/Vol] 0.2 mg/dL Normal 0.2-1.3 [facility] Comment on above: Order Comment: Speci men Type: BLOOD SPECIMENOrdering Facility: [facility] Address: [address] [place] [address] Performed By: #### 2 4323-8 ####ADKINS LABORATORYCLIA [id number] [place] [address] [place] Calcium [Mass/Vol] 8.4 mg/dL Low 8.5-10.2 [facility] Comment on above: Order Comment: Speci men Type: BLOOD SPECIMENOrdering Facility: [facility] Address: [address] [place] [address] Performed By: #### 2 4323-8 ####ADKINS LABORATORYCLIA [id number] [place] [address] [place] Chloride [Moles/Vol] 99 mmol/L Normal 98-107 [facility] Comment on above: Order Comment: Speci men Type: BLOOD SPECIMENOrdering Facility: [facility] Address: [address] [place] [address] Performed By: #### 2 4323-8 ####ADKINS LABORATORYCLIA [id number] [place] [address] [place] CO2 [Moles/Vol] 26 mmol/L Normal 22-30 [facility] Comment on above: Order Comment: Speci men Type: BLOOD SPECIMENOrdering Facility: [facility] Address: [address] [place] [address] Performed By: #### 2 4323-8 ####ADKINS LABORATORYCLIA [id number] [place] [address] [place] Creatinine [Mass/Vol] 5.23 mg/dL High 0.73-1.22 [facility] Comment on above: Order Comment: Speci men Type: BLOOD SPECIMENOrdering Facility: [facility] Address: [address] [place] [address] Performed By: #### 2 4323-8 ####SEBRING LABORATORYCLIA [id number] [place] [id number] [facility] Creatinine and Glomerular filtration rate.predicted panel (S/P/Bld) 12 mL/min/1.73m??? Low >=60 [facility] Comment on above: Order Comment: Luz vaughan Type: BLOOD SPECIMENOrdering Facility: [facility] Address: [address] [place] [address] Result Comment: Breanne mated Glomerular Filtration Rate [...] actual GFR. Performed By: #### 2 4323-8 ####SEBRING LABORATORYCLIA [id number] [place] [address] [place] [facility] Glucose [Mass/Vol] 108 mg/dL High 74-99 [facility] Comment on above: Order Comment: Luz vaughan Type: BLOOD SPECIMENOrdering Facility: [facility] Address: [address] [place] [address] Result Comment: The [place] Diabetes Association (ADA) provides guidance for cutoff [...] Standards of Medical Care in Diabetes 2016, [place] [employer]. Diabetes Care. 2016.39(Suppl 1). Performed By: #### 2 4323-8 ####ADKINS LABORATORYCLIA [id number] [place] [id number] [place] Potassium [Moles/Vol] 4.0 mmol/L Normal 3.7-5.1 [facility] Comment on above: Order Comment: Speci men Type: BLOOD SPECIMENOrdering Facility: [facility] Address: [address] [place] [address] Performed By: #### 2 4323-8 ####ADKINS LABORATORYCLIA [id number] [address] [place] Protein [Mass/Vol] 5.6 g/dL Low 6.3-8.0 [facility] Comment on above: Order Comment: Speci men Type: BLOOD SPECIMENOrdering Facility: [facility] Address: [address] [place] [address] Performed By: #### 2 4323-8 ####ADKINS LABORATORYCLIA [id number] [address] [place] Sodium [Moles/Vol] 136 mmol/L Normal 136-144 [facility] Comment on above: Order Comment: Speci men Type: BLOOD SPECIMENOrdering Facility: [facility] Address: [address] [place] [address] Performed By: #### 2 4323-8 ####ADKINS LABORATORYCLIA [id number] [address] [place] Urea nitrogen [Mass/Vol] 46 mg/dL High 9-24 [facility] Comment on above: Order Comment: Speci men Type: BLOOD SPECIMENOrdering Facility: [facility] Address: [address] [place] [address] Performed By: #### 2 4323-8 ####ADKINS LABORATORYCLIA [id number] [address] [place] THERAPY NTon 07-22-2024 THERAPY NT Normal [facility] CBC panel Auto (Bld)on 07-21 Erythrocyte distribution width (RBC) [Ratio] 13.2 % Normal 11.5-15.0 [facility] Comment on above: Order Comment: Speci men Type: BLOOD SPECIMENOrdering Facility: [facility] Address: [address] [place] [address] Performed By: #### 5 8410-2 ####ADKINS LABORATORYCLIA [id number] [address] Hematocrit (Bld) [Volume fraction] 27.0 % Low 39.0-51.0 [facility] Comment on above: Order Comment: Speci men Type: BLOOD SPECIMENOrdering Facility: [facility] Address: [address] [place] [address] Performed By: #### 5 8410-2 ####ADKINS LABORATORYCLIA [id number] [address] Hemoglobin (Bld) [Mass/Vol] 8.8 g/dL Low 13.0-17.0 [facility] Comment on above: Order Comment: Speci men Type: BLOOD SPECIMENOrdering Facility: [facility] Address: [address] [place] [address] Performed By: #### 5 8410-2 ####ADKINS LABORATORYCLIA [id number] [address] MCH (RBC) [Entitic mass] 28.6 pg Normal 26.0-34.0 [facility] Comment on above: Order Comment: Speci men Type: BLOOD SPECIMENOrdering Facility: [facility] Address: [address] [place] [address] Performed By: #### 5 8410-2 ####ADKINS LABORATORYCLIA [id number] [address] MCHC (RBC) [Mass/Vol] 32.6 g/dL Normal 30.5-36.0 [facility] Comment on above: Order Comment: Speci men Type: BLOOD SPECIMENOrdering Facility: [facility] Address: [address] [place] [address] Performed By: #### 5 8410-2 ####ADKINS LABORATORYCLIA [id number] [address] MCV (RBC) [Entitic vol] 87.7 fL Normal 80.0-100.0 [facility] Comment on above: Order Comment: Speci men Type: BLOOD SPECIMENOrdering Facility: [facility] Address: [address] [place] [address] Performed By: #### 5 8410-2 ####ADKINS LABORATORYCLIA [id number] [place] [address] [place] Nucleated RBC (Bld) [#/Vol] 10*3/uL Normal <0.01 [facility] Comment on above: Order Comment: Speci men Type: BLOOD SPECIMENOrdering Facility: [facility] Address: [address] [place] [address] Performed By: #### 5 8410-2 ####ADKINS LABORATORYCLIA [id number] [place] [address] [place] Platelet mean volume (Bld) [Entitic vol] 9.2 fL Normal 9.0-12.7 [facility] Comment on above: Order Comment: Speci men Type: BLOOD SPECIMENOrdering Facility: [facility] Address: [address] [place] [address] Performed By: #### 5 8410-2 ####ADKINS LABORATORYCLIA [id number] [address] [place] Platelets (Bld) [#/Vol] 148 10*3/uL Low 150-400 [facility] Comment on above: Order Comment: Speci men Type: BLOOD SPECIMENOrdering Facility: [facility] Address: [address] [place] [address] Performed By: #### 5 8410-2 ####ADKINS LABORATORYCLIA [id number] [address] [place] RBC (Bld) [#/Vol] 3.08 10*6/uL Low 4.20-6.00 [facility] Comment on above: Order Comment: Speci men Type: BLOOD SPECIMENOrdering Facility: [facility] Address: [address] [place] [address] Performed By: #### 5 8410-2 ####ADKINS LABORATORYCLIA [id number] [address] [place] WBC (Bld) [#/Vol] 4.39 10*3/uL Normal 3.70-11.00 [facility] Comment on above: Order Comment: Speci men Type: BLOOD SPECIMENOrdering Facility: [facility] Address: [address] [place] [address] Performed By: #### 5 8410-2 ####ADKINS LABORATORYCLIA [id number] [place] [address] [place] CONSULT PROGon 07-21-2024 CONSULT PROG Normal [facility] Comprehensive metabolic 2000 panelon 07-21-2024 Albumin [Mass/Vol] 3.2 g/dL Low 3.9-4.9 [facility] Comment on above: Order Comment: Speci men Type: BLOOD SPECIMENOrdering Facility: [facility] Address: [address] [place] [address] Performed By: #### 2 4323-8 ####ADKINS LABORATORYCLIA [id number] [address] [place] ALP [Catalytic activity/Vol] 106 U/L Normal 38-113 [facility] Comment on above: Order Comment: Speci men Type: BLOOD SPECIMENOrdering Facility: [facility] Address: [address] [place] [address] Performed By: #### 2 4323-8 ####ADKINS LABORATORYCLIA [id number] [address] [place] ALT [Catalytic activity/Vol] 13 U/L Normal 10-54 [facility] Comment on above: Order Comment: Speci men Type: BLOOD SPECIMENOrdering Facility: [facility] Address: [address] [place] [address] Performed By: #### 2 4323-8 ####ADKINS LABORATORYCLIA [id number] [place] [address] [place] Anion gap [Moles/Vol] 14 mmol/L Normal 8-15 [facility] Comment on above: Order Comment: Speci men Type: BLOOD SPECIMENOrdering Facility: [facility] Address: [address] [place] [address] Performed By: #### 2 4323-8 ####ADKINS LABORATORYCLIA [id number] [place] [address] [place] AST [Catalytic activity/Vol] 25 U/L Normal 14-40 [facility] Comment on above: Order Comment: Speci men Type: BLOOD SPECIMENOrdering Facility: [facility] Address: [address] [place] [address] [place] [address] Performed By: #### 2 4323-8 ####ADKINS LABORATORYCLIA [id number] [place] [address] [place] Bilirubin [Mass/Vol] 0.3 mg/dL Normal 0.2-1.3 [facility] Comment on above: Order Comment: Speci men Type: BLOOD SPECIMENOrdering Facility: [facility] Address: [address] [place] [address] Performed By: #### 2 4323-8 ####ADKINS LABORATORYCLIA [id number] [place] [address] [place] Calcium [Mass/Vol] 8.6 mg/dL Normal 8.5-10.2 [facility] Comment on above: Order Comment: Speci men Type: BLOOD SPECIMENOrdering Facility: [facility] Address: [address] [place] [address] Performed By: #### 2 4323-8 ####ADKINS LABORATORYCLIA [id number] [place] [address] [place] Chloride [Moles/Vol] 96 mmol/L Low 98-107 [facility] Comment on above: Order Comment: Speci men Type: BLOOD SPECIMENOrdering Facility: [facility] Address: [address] [place] [address] Performed By: #### 2 4323-8 ####ADKINS LABORATORYCLIA [id number] [place] [address] [place] CO2 [Moles/Vol] 25 mmol/L Normal 22-30 [facility] Comment on above: Order Comment: Speci men Type: BLOOD SPECIMENOrdering Facility: [facility] Address: [address] [place] [address] Performed By: #### 2 4323-8 ####ADKINS LABORATORYCLIA [id number] [place] [address] [place] Creatinine [Mass/Vol] 4.12 mg/dL High 0.73-1.22 [facility] Comment on above: Order Comment: Luz vaughan Type: BLOOD SPECIMENOrdering Facility: [facility] Address: [address] [place] [address] Performed By: #### 2 4323-8 ####LUCILLE LABORATORYCLIA [id number] [place] [id number] [place] Creatinine and Glomerular filtration rate.predicted panel (S/P/Bld) 15 mL/min/1.73m??? Low >=60 [facility] Comment on above: Order Comment: Luz vaughan Type: BLOOD SPECIMENOrdering Facility: [facility] Address: [address] [place] [address] Result Comment: Breanne mated Glomerular Filtration Rate [...] Performed By: #### 2 4323-8 ####ADKINS LABORATORYCLIA [id number] [place] [id number] [place] Glucose [Mass/Vol] 85 mg/dL Normal 74-99 [facility] Comment on above: Order Comment: Luz vaughan Type: BLOOD SPECIMENOrdering Facility: [facility] Address: [address] [place] [address] Result Comment: The [place] Diabetes Association (ADA) provides guidance for cutoff [...] Standards of Medical Care in Diabetes 2016, [place] [employer]. Diabetes Care. 2016.39(Suppl 1). Performed By: #### 2 4323-8 ####ADKINS LABORATORYCLIA [id number] [address] [place] Potassium [Moles/Vol] 3.8 mmol/L Normal 3.7-5.1 [facility] Comment on above: Order Comment: Speci men Type: BLOOD SPECIMENOrdering Facility: [facility] Address: [address] [place] [address] Performed By: #### 2 4323-8 ####ADKINS LABORATORYCLIA [id number] [address] [place] [facility] Protein [Mass/Vol] 5.8 g/dL Low 6.3-8.0 [facility] Comment on above: Order Comment: Speci men Type: BLOOD SPECIMENOrdering Facility: [facility] Address: [address] [place] [address] Performed By: #### 2 4323-8 ####ADKINS LABORATORYCLIA [id number] [address] [place] Sodium [Moles/Vol] 135 mmol/L Low 136-144 [facility] Comment on above: Order Comment: Speci men Type: BLOOD SPECIMENOrdering Facility: [facility] Address: [address] [place] [address] Performed By: #### 2 4323-8 ####ADKINS LABORATORYCLIA [id number] [address] [place] Urea nitrogen [Mass/Vol] 34 mg/dL High 9-24 [facility] Comment on above: Order Comment: Speci men Type: BLOOD SPECIMENOrdering Facility: [facility] Address: [address] [place] [address] Performed By: #### 2 4323-8 ####ADKINS LABORATORYCLIA [id number] [place] [address] [place] Basic metabolic 2000 panelon 07-20-2024 Anion gap [Moles/Vol] 15 mmol/L Normal 8-15 [facility] Comment on above: Order Comment: Speci men Type: BLOOD SPECIMENOrdering Facility: [facility] Address: [address] [place] [address] Performed By: #### 2 4321-2 ####ADKINS LABORATORYCLIA [id number] [place] [address] [place] Calcium [Mass/Vol] 9.1 mg/dL Normal 8.5-10.2 [facility] Comment on above: Order Comment: Speci men Type: BLOOD SPECIMENOrdering Facility: [facility] Address: [address] [place] [address] Performed By: #### 2 4321-2 ####ADKINS LABORATORYCLIA [id number] [place] [address] [place] Chloride [Moles/Vol] 101 mmol/L Normal 98-107 [facility] Comment on above: Order Comment: Speci men Type: BLOOD SPECIMENOrdering Facility: [facility] Address: [address] [place] [address] Performed By: #### 2 4321-2 ####ADKINS LABORATORYCLIA [id number] [place] [address] [place] CO2 [Moles/Vol] 23 mmol/L Normal 22-30 [facility] Comment on above: Order Comment: Speci men Type: BLOOD SPECIMENOrdering Facility: [facility] Address: [address] [place] [address] Performed By: #### 2 4321-2 ####ADKINS LABORATORYCLIA [id number] [place] [address] [place] Creatinine [Mass/Vol] 5.49 mg/dL High 0.73-1.22 [facility] Comment on above: Order Comment: Speci men Type: BLOOD SPECIMENOrdering Facility: [facility] Address: [address] [place] [address] Performed By: #### 2 4321-2 ####ADKINS LABORATORYCLIA [id number] [address] [place] Creatinine and Glomerular filtration rate.predicted panel (S/P/Bld) 11 mL/min/1.73m??? Low >=60 [facility] Comment on above: Order Comment: Speci men Type: BLOOD SPECIMENOrdering Facility: [facility] Address: [address] [place] [address] Result Comment: Breanne mated Glomerular Filtration Rate [...] Performed By: #### 2 4321-2 ####ADKINS LABORATORYCLIA [id number] [place] [address] [place] Glucose [Mass/Vol] 123 mg/dL High 74-99 [facility] Comment on above: Order Comment: Luz vaughan Type: BLOOD SPECIMENOrdering Facility: [facility] Address: [address] [facility] [place] [address] Result Comment: The [place] Diabetes Association (ADA) provides guidance for cutoff [...] Standards of Medical Care in Diabetes 2016, [place] [employer]. Diabetes Care. 2016.39(Suppl 1). Performed By: #### 2 4321-2 ####ADKINS LABORATORYCLIA [id number] [place] [id number] [place] Potassium [Moles/Vol] 4.5 mmol/L Normal 3.7-5.1 [facility] Comment on above: Order Comment: Luz vaughan Type: BLOOD SPECIMENOrdering Facility: [facility] Address: [address] [place] [address] Performed By: #### 2 4321-2 ####ADKINS LABORATORYCLIA [id number] [place] [address] [place] Sodium [Moles/Vol] 139 mmol/L Normal 136-144 [facility] Comment on above: Order Comment: Speci men Type: BLOOD SPECIMENOrdering Facility: [facility] Address: [address] [place] [id number] Performed By: #### 2 4321-2 ####ADKINS LABORATORYCLIA [id number] [place] [address] [place] Urea nitrogen [Mass/Vol] 57 mg/dL High 9-24 [facility] Comment on above: Order Comment: Speci men Type: BLOOD SPECIMENOrdering Facility: [facility] Address: [address] [place] [address] Performed By: #### 2 4321-2 ####ADKINS LABORATORYCLIA [id number] [place] [address] [place] [address] BRAIN WO IVCONon 07-21-19 CT BRAIN WO IVCON [facility] NURSING PROGon 07-20-2024 [facility] CASE MANAGEMon 07-19-2024 CASE MANAGEM [facility] CONSULT PROn 07-19-2024 CONSULT [facility] Renal function 2000 panelon 07-19-2024 Albumin [Mass/Vol] 3.2 g/dL Low 3.9-4.9 [facility] Comment on above: Order Comment: Speci men Type: BLOOD SPECIMENOrdering Facility: [facility] Address: [address] [place] [address] Performed By: #### 2 4362-6 ####ADKINS LABORATORYCLIA [id number] [place] [address] [place] Anion gap [Moles/Vol] 20 mmol/L High 8-15 [facility] Comment on above: Order Comment: Speci men Type: BLOOD SPECIMENOrdering Facility: [facility] Address: [address] [place], [place] [address] Performed By: #### 2 4362-6 ####ADKINS LABORATORYCLIA [id number] [place] [address] [place] Calcium [Mass/Vol] 9.1 mg/dL Normal 8.5-10.2 [facility] Comment on above: Order Comment: Speci men Type: BLOOD SPECIMENOrdering Facility: [facility] Address: [address] [place], [place] [address] Performed By: #### 2 4362-6 ####ADKINS LABORATORYCLIA [id number] [place] [address] [place] Chloride [Moles/Vol] 109 mmol/L High 98-107 [facility] Comment on above: Order Comment: Speci men Type: BLOOD SPECIMENOrdering Facility: [facility] Address: [address] [place] [address] Performed By: #### 2 4362-6 ####ADKINS LABORATORYCLIA [id number] [place] [address] [place] CO2 [Moles/Vol] 16 mmol/L Low 22-30 [facility] Comment on above: Order Comment: Speci men Type: BLOOD SPECIMENOrdering Facility: [facility] Address: [address] [place] [address] Performed By: #### 2 4362-6 ####ADKINS LABORATORYCLIA [id number] [place] [address] [place] Creatinine [Mass/Vol] 6.51 mg/dL High 0.73-1.22 [facility] Comment on above: Order Comment: Speci men Type: BLOOD SPECIMENOrdering Facility: [facility] Address: [address] [place] [address] Performed By: #### 2 4362-6 ####ADKINS LABORATORYCLIA [id number] [address] Creatinine and Glomerular filtration rate.predicted panel (S/P/Bld) 9 mL/min/1.73m??? Low >=60 [facility] Comment on above: Order Comment: Speci men Type: BLOOD SPECIMENOrdering Facility: [facility] Address: [address] [place] [address] Result Comment: Breanne mated Glomerular Filtration Rate [...] Performed By: #### 2 4362-6 ####ADKINS LABORATORYCLIA [id number] [place] [address] [place] Glucose [Mass/Vol] 100 mg/dL High 74-99 [facility] Comment on above: Order Comment: Luz clement Type: BLOOD SPECIMENOrdering Facility: [facility] Address: [address] [place] [address] Result Comment: The [place] Diabetes Association (ADA) provides guidance for cutoff [...] Standards of Medical Care in Diabetes 2016, [place] [employer]. Diabetes Care. 2016.39(Suppl 1). Performed By: #### 2 4362-6 ####ADKINS LABORATORYCLIA [id number] [place] [id number] [place] Phosphate [Mass/Vol] 10.9 mg/dL High 2.7-4.8 [facility] Comment on above: Order Comment: Luz vaughan Type: BLOOD SPECIMENOrdering Facility: [facility] Address: [address] [place] [address] Performed By: #### 2 4362-6 ####ADKINS LABORATORYCLIA [id number] [place] [id number] [place] Potassium [Moles/Vol] 5.4 mmol/L High 3.7-5.1 [facility] Comment on above: Order Comment: Luz men Type: BLOOD SPECIMENOrdering Facility: [facility] Address: [address] [place] [address] Performed By: #### 2 4362-6 ####ADKINS LABORATORYCLIA [id number] [place] [id number] [place] Sodium [Moles/Vol] 145 mmol/L High 136-144 [facility] Comment on above: Order Comment: Speci men Type: BLOOD SPECIMENOrdering Facility: [facility] Address: [address] [place] [address] Performed By: #### 2 4362-6 ####ADKINS LABORATORYCLIA [id number] [address] [place] [facility] Urea nitrogen [Mass/Vol] 83 mg/dL High 9-24 [facility] Comment on above: Order Comment: Speci men Type: BLOOD SPECIMENOrdering Facility: [facility] Address: [address] [place] [address] Performed By: #### 2 4362-6 ####ADKINS LABORATORYCLIA [id number] [address] [place] BRIEF OP NOTon 07-18-2024 BRIEF OP NOT Normal [facility] CASE MANAGEMon 07-18-2024 CASE MANAGEM Normal [facility] CBC W Auto Differential pane l (Bld)on 07-18-2024 Basophils (Bld) [#/Vol] 10*3/uL Normal <0.11 [facility] Comment on above: Order Comment: Speci men Type: BLOOD SPECIMENOrdering Facility: [facility] Address: [address] [place] [address] Performed By: #### 5 7021-8 ####ADKINS LABORATORYCLIA [id number] [address] [place] [facility] Basophils/100 WBC (Bld) 0.2 % Normal [facility] Comment on above: Order Comment: Speci men Type: BLOOD SPECIMENOrdering Facility: [facility] Address: [address] [place] [address] Performed By: #### 5 7021-8 ####ADKINS LABORATORYCLIA [id number] [address] Differential cell count method Nom (Bld) Auto Normal [facility] Comment on above: Order Comment: Speci men Type: BLOOD SPECIMENOrdering Facility: [facility] Address: [address] [place] [address] Performed By: #### 5 7021-8 ####ADKINS LABORATORYCLIA [id number] [place] [address] [place] Eosinophils (Bld) [#/Vol] 0.49 10*3/uL High <0.46 [facility] Comment on above: Order Comment: Speci men Type: BLOOD SPECIMENOrdering Facility: [facility] Address: [address] [place] [address] Performed By: #### 5 7021-8 ####ADKINS LABORATORYCLIA [id number] [address] [place] Eosinophils/100 WBC (Bld) 8.3 % Normal [facility] Comment on above: Order Comment: Speci men Type: BLOOD SPECIMENOrdering Facility: [facility] Address: [address] [place] [address] Performed By: #### 5 7021-8 ####ADKINS LABORATORYCLIA [id number] [address] [address] Erythrocyte distribution width (RBC) [Ratio] 13.2 % Normal 11.5-15.0 [facility] Comment on above: Order Comment: Speci men Type: BLOOD SPECIMENOrdering Facility: [facility] Address: [address] [place] [address] Performed By: #### 5 7021-8 ####[facility] LABORATORYCLIA [id number] [address] [place] Hematocrit (Bld) [Volume fraction] 29.6 % Low 39.0-51.0 [facility] Comment on above: Order Comment: Speci men Type: BLOOD SPECIMENOrdering Facility: [facility] Address: [address] [place] [address] Performed By: #### 5 7021-8 ####[facility] LABORATORYCLIA [id number] [address] Hemoglobin (Bld) [Mass/Vol] 9.4 g/dL Low 13.0-17.0 [facility] Comment on above: Order Comment: Speci men Type: BLOOD SPECIMENOrdering Facility: [facility] Address: [address] [place] [address] Performed By: #### 5 7021-8 ####[facility] LABORATORYCLIA [id number] [address] [place] Immature granulocytes (Bld) [#/Vol] 10*3/uL Normal <0.10 [facility] Comment on above: Order Comment: Speci men Type: BLOOD SPECIMENOrdering Facility: [facility] Address: [address] [place] [address] Performed By: #### 5 7021-8 ####[facility]KINS LABORATORYCLIA [id number] [address] Immature granulocytes/100 WBC (Bld) 0.3 % Normal [facility] Comment on above: Order Comment: Speci men Type: BLOOD SPECIMENOrdering Facility: [facility] Address: [address] [place] [address] Performed By: #### 5 7021-8 ####ADKINS LABORATORYCLIA [id number] [address] [place] Lymphocytes (Bld) [#/Vol] 1.17 10*3/uL Normal 1.00-4.00 [facility] Comment on above: Order Comment: Speci men Type: BLOOD SPECIMENOrdering Facility: [facility] Address: [address] [place] [address] Performed By: #### 5 7021-8 ####ADK[facility] LABORATORYCLIA [id number] [address] Lymphocytes/100 WBC (Bld) 19.8 % Normal [facility] Comment on above: Order Comment: Speci men Type: BLOOD SPECIMENOrdering Facility: [facility] Address: [address] [place] [address] Performed By: #### 5 7021-8 ####ADKINS LABORATORYCLIA [id number] [address] [place] [facility] MCH (RBC) [Entitic mass] 28.7 pg Normal 26.0-34.0 [facility] Comment on above: Order Comment: Speci men Type: BLOOD SPECIMENOrdering Facility: [facility] Address: [address] [place] [address] Performed By: #### 5 7021-8 ####ADKINS LABORATORYCLIA [id number] [place] [address] [place] MCHC (RBC) [Mass/Vol] 31.8 g/dL Normal 30.5-36.0 [facility] Comment on above: Order Comment: Speci men Type: BLOOD SPECIMENOrdering Facility: [facility] Address: [address] [place] [address] Performed By: #### 5 7021-8 ####ADKINS LABORATORYCLIA [id number] [address] MCV (RBC) [Entitic vol] 90.5 fL Normal 80.0-100.0 [facility] Comment on above: Order Comment: Speci men Type: BLOOD SPECIMENOrdering Facility: [facility] Address: [address] [place] [address] Performed By: #### 5 7021-8 ####ADKINS LABORATORYCLIA [id number] [place] [address] [place] Monocytes (Bld) [#/Vol] 0.64 10*3/uL Normal <0.87 [facility] Comment on above: Order Comment: Speci men Type: BLOOD SPECIMENOrdering Facility: [facility] Address: [address] [place] [address] Performed By: #### 5 7021-8 ####ADKINS LABORATORYCLIA [id number] [address] Monocytes/100 WBC (Bld) 10.8 % Normal [facility] Comment on above: Order Comment: Speci men Type: BLOOD SPECIMENOrdering Facility: [facility] Address: [address] [place] [address] Performed By: #### 5 7021-8 ####ADKINS LABORATORYCLIA [id number] [place] [address] [place] Neutrophils (Bld) [#/Vol] 3.59 10*3/uL Normal 1.45-7.50 [facility] Comment on above: Order Comment: Speci men Type: BLOOD SPECIMENOrdering Facility: [facility] Address: [address] [place] [address] Performed By: #### 5 7021-8 ####ADKINS LABORATORYCLIA [id number] [address] Neutrophils/100 WBC (Bld) 60.6 % Normal [facility] Comment on above: Order Comment: Speci men Type: BLOOD SPECIMENOrdering Facility: [facility] Address: [address] [place] [address] Performed By: #### 5 7021-8 ####ADKINS LABORATORYCLIA [id number] [address] [place] Nucleated RBC (Bld) [#/Vol] 10*3/uL Normal <0.01 [facility] Comment on above: Order Comment: Speci men Type: BLOOD SPECIMENOrdering Facility: [facility] Address: [address] [place] [address] Performed By: #### 5 7021-8 ####ADK[facility] LABORATORYCLIA [id number] [address] Nucleated RBC/100 WBC (Bld) [Ratio] 0.0 /100 WBC Normal [facility] Comment on above: Order Comment: Speci men Type: BLOOD SPECIMENOrdering Facility: [facility] Address: [address] [place] [address] Performed By: #### 5 7021-8 ####ADK[facility] LABORATORYCLIA [id number] [address] [place] Platelet mean volume (Bld) [Entitic vol] 9.7 fL Normal 9.0-12.7 [facility] Comment on above: Order Comment: Speci men Type: BLOOD SPECIMENOrdering Facility: [facility] Address: [address] [place] [address] Performed By: #### 5 7021-8 ####ADK[facility] LABORATORYCLIA [id number] [address] [place] Platelets (Bld) [#/Vol] 198 10*3/uL Normal 150-400 [facility] Comment on above: Order Comment: Speci men Type: BLOOD SPECIMENOrdering Facility: [facility] Address: [address] [place] [address] Performed By: #### 5 7021-8 ####ADK[facility] LABORATORYCLIA [id number] [place] [address] [place] RBC (Bld) [#/Vol] 3.27 10*6/uL Low 4.20-6.00 [facility] Comment on above: Order Comment: Speci men Type: BLOOD SPECIMENOrdering Facility: [facility] Address: [address] [place] [address] Performed By: #### 5 7021-8 ####ADK[facility] LABORATORYCLIA [id number] [address] WBC (Bld) [#/Vol] 5.92 10*3/uL Normal 3.70-11.00 [facility] Comment on above: Order Comment: Speci men Type: BLOOD SPECIMENOrdering Facility: [facility] Address: [address] [place] [address] Performed By: #### 5 7021-8 ####ADK[facility] LABORATORYCLIA [id number] [address] CONSULT PROGon 07-18-2024 CONSULT PROG Normal [facility] Comprehensive metabolic 2000 panelon 07-18-2024 Albumin [Mass/Vol] 3.0 g/dL Low 3.9-4.9 [facility] Comment on above: Order Comment: Speci men Type: BLOOD SPECIMENOrdering Facility: [facility] Address: [address] [place] [address] Performed By: #### 2 4323-8 ####ADK[facility] LABORATORYCLIA [id number] [address] [place] ALP [Catalytic activity/Vol] 103 U/L Normal 38-113 [facility] Comment on above: Order Comment: Speci men Type: BLOOD SPECIMENOrdering Facility: [facility] Address: [address] [place] [address] Performed By: #### 2 4323-8 ####ADK[facility] LABORATORYCLIA [id number] [address] ALT [Catalytic activity/Vol] 8 U/L Low 10-54 [facility] Comment on above: Order Comment: Speci men Type: BLOOD SPECIMENOrdering Facility: [facility] Address: [address] [place] [address] Performed By: #### 2 4323-8 ####ADK[facility] LABORATORYCLIA [id number] [place] [address] [place] Anion gap [Moles/Vol] 11 mmol/L Normal 8-15 [facility] Comment on above: Order Comment: Speci men Type: BLOOD SPECIMENOrdering Facility: [facility] Address: [address] [place] [address] Performed By: #### 2 4323-8 ####ADK[facility] LABORATORYCLIA [id number] [address] [place] AST [Catalytic activity/Vol] 10 U/L Low 14-40 [facility] Comment on above: Order Comment: Speci men Type: BLOOD SPECIMENOrdering Facility: [facility] Address: [address] [place] [address] Performed By: #### 2 4323-8 ####ADKINS LABORATORYCLIA [id number] [place] [address] [place] Bilirubin [Mass/Vol] 0.2 mg/dL Normal 0.2-1.3 [facility] Comment on above: Order Comment: Speci men Type: BLOOD SPECIMENOrdering Facility: [facility] Address: [address] [place] [address] Performed By: #### 2 4323-8 ####ADK[facility] LABORATORYCLIA [id number] [address] [place] Calcium [Mass/Vol] 9.1 mg/dL Normal 8.5-10.2 [facility] Comment on above: Order Comment: Speci men Type: BLOOD SPECIMENOrdering Facility: [facility] Address: [address] [place] [address] Performed By: #### 2 4323-8 ####ADK[facility] LABORATORYCLIA [id number] [place] [address] [place] Chloride [Moles/Vol] 112 mmol/L High 98-107 [facility] Comment on above: Order Comment: Speci men Type: BLOOD SPECIMENOrdering Facility: [facility] Address: [address] [place] [address] Performed By: #### 2 4323-8 ####ADKINS LABORATORYCLIA [id number] [place] [address] [place] CO2 [Moles/Vol] 20 mmol/L Low 22-30 [facility] Comment on above: Order Comment: Brooksi men Type: BLOOD SPECIMENOrdering Facility: [facility] Address: [address] [place] [address] Performed By: #### 2 4323-8 ####ADK[facility] LABORATORYCLIA [id number] [place] [address] [place] Creatinine [Mass/Vol] 5.34 mg/dL High 0.73-1.22 [facility] Comment on above: Order Comment: Brooksi men Type: BLOOD SPECIMENOrdering Facility: [facility] Address: [address] [place] [address] Performed By: #### 2 4323-8 ####ADKINS LABORATORYCLIA [id number] [address] [place] Creatinine and Glomerular filtration rate.predicted panel (S/P/Bld) 11 mL/min/1.73m??? Low >=60 [facility] Comment on above: Order Comment: Luz men Type: BLOOD SPECIMENOrdering Facility: [facility] Address: [address] [place] [address] Result Comment: Breanne mated Glomerular Filtration Rate [...] Performed By: #### 2 4323-8 ####ADK[facility] LABORATORYCLIA [id number] [place] [address] [place] Glucose [Mass/Vol] 72 mg/dL Low 74-99 [facility] Comment on above: Order Comment: Brooksi men Type: BLOOD SPECIMENOrdering Facility: [facility] Address: [address] [place] [address] Result Comment: The [place] [employer] (ADA) provides guidance for cutoff [...] Standards of Medical Care in Diabetes 2016, [place] [employer]. Diabetes Care. 2016.39(Suppl 1). Performed By: #### 2 4323-8 ####ADK[facility] LABORATORYCLIA [id number] [place] [address] [place] Potassium [Moles/Vol] 5.2 mmol/L High 3.7-5.1 [facility] Comment on above: Order Comment: Speci men Type: BLOOD SPECIMENOrdering Facility: [facility] Address: [address] [place] [address] Performed By: #### 2 4323-8 ####ADK[facility] LABORATORYCLIA [id number] [place] [address] [place] Protein [Mass/Vol] 5.9 g/dL Low 6.3-8.0 [facility] Comment on above: Order Comment: Speci men Type: BLOOD SPECIMENOrdering Facility: [facility] Address: [address] [place] [address] Performed By: #### 2 4323-8 ####ADKINS LABORATORYCLIA [id number] [place] [address] [place] Sodium [Moles/Vol] 143 mmol/L Normal 136-144 [facility] Comment on above: Order Comment: Speci men Type: BLOOD SPECIMENOrdering Facility: [facility] Address: [address] [place] [address] Performed By: #### 2 4323-8 ####ADK[facility] LABORATORYCLIA [id number] [place] [address] [place] Urea nitrogen [Mass/Vol] 76 mg/dL High 9-24 [facility] Comment on above: Order Comment: Speci men Type: BLOOD SPECIMENOrdering Facility: [facility] Address: [address] [place] [address] Performed By: #### 2 4323-8 ####[facility] LABORATORYCLIA [id number] [place] [address] [place] HBV surface Ab Ql (S)on 07-02 HBV surface Ab Qn (S) <8.00 Normal [facility] Comment on above: Order Comment: Speci men Type: BLOOD SPECIMENOrdering Facility: [facility] Address: [address] [place] [address] Result Comment: <8 m IU/mL: No serological evidence of immunity to Hepatitis B Virus.>/= 8 to <12 mIU/mL: No serological evidence of immunity to Hepatitis B Virus.>/= 12 mIU/mL: Consistent with serological evidence of immunity to Hepatitis B Virus. Performed By: #### 2 2322-2, 519-3 ####[facility] LABCLIA [id number] [address] [place] HBV surface Ab Ser Qlon 07-02 HBV surface Ab Ql (S) Negative Normal [facility] Comment on above: Order Comment: Speci men Type: BLOOD SPECIMENOrdering Facility: [facility] Address: [address] [place] [address] Result Comment: No s erological evidence of immunity to Hepatitis B Virus. Performed By: #### 2 2322-2, 5194-3 ####[facility] LABCLIA [id number] [place] [address] [place] HBV surface Ag Ser Qlon 07-02 HBV surface Ag Ql (S) Negative Normal Negative [facility] Comment on above: Order Comment: Speci men Type: BLOOD SPECIMENOrdering Facility: [facility] Address: [address] [place] [address] Performed By: #### 2 2322-2, 519-3 ####[facility] LABCLIA [id number] [place] [address] [place] IR CVC TUNNEL W/O PORT INSER Ton 07-18-2024 IR CVC TUNNEL W/O PORT INSERT [facility] NURSING PROGon 07-18-2024 NURSING PROG [facility] PT EDon 07-18-2024 PT ED [facility] THERAPY NTon 07-18-2024 THERAPY NT [facility] CASE MANAGEMon 07-17-2024 CASE MANAGEM [facility] CBC W Auto Differential pane l (Bld)on 07-17-2024 Basophils (Bld) [#/Vol] 10*3/uL Normal <0.11 [facility] Comment on above: Order Comment: Speci men Type: BLOOD SPECIMENOrdering Facility: [facility] Address: [address] [place] [address] Performed By: #### 5 7021-8 ####ADK[facility] LABORATORYCLIA [id number] [place] [address] [place] Basophils/100 WBC (Bld) 0.2 % Normal [facility] Comment on above: Order Comment: Speci men Type: BLOOD SPECIMENOrdering Facility: [facility] Address: [address] [place] [address] Performed By: #### 5 7021-8 ####ADK[facility] LABORATORYCLIA [id number] [place] [id number] [place] Differential cell count method Nom (Bld) Auto Normal [facility] Comment on above: Order Comment: Speci men Type: BLOOD SPECIMENOrdering Facility: [facility] Address: [address] [place] [address] Performed By: #### 5 7021-8 ####ADK[facility] LABORATORYCLIA [id number] [place] [address] [place] Eosinophils (Bld) [#/Vol] 0.36 10*3/uL Normal <0.46 [facility] Comment on above: Order Comment: Speci men Type: BLOOD SPECIMENOrdering Facility: [facility] Address: [address] [place] [address] Performed By: #### 5 7021-8 ####ADK[facility] LABORATORYCLIA [id number] [place] [address] [place] Eosinophils/100 WBC (Bld) 5.8 % Normal [facility] Comment on above: Order Comment: Speci men Type: BLOOD SPECIMENOrdering Facility: [facility] Address: [address] [place] [address] Performed By: #### 5 7021-8 ####ADK[facility] LABORATORYCLIA [id number] [place] [address] [place] Erythrocyte distribution width (RBC) [Ratio] 13.2 % Normal 11.5-15.0 [facility] Comment on above: Order Comment: Speci men Type: BLOOD SPECIMENOrdering Facility: [facility] Address: [address] [place] [address] Performed By: #### 5 7021-8 ####ADKINS LABORATORYCLIA [id number] [address] [place] Hematocrit (Bld) [Volume fraction] 31.9 % Low 39.0-51.0 [facility] Comment on above: Order Comment: Speci men Type: BLOOD SPECIMENOrdering Facility: [facility] Address: [address] [place] [address] Performed By: #### 5 7021-8 ####ADK[facility] LABORATORYCLIA [id number] [address] [place] Hemoglobin (Bld) [Mass/Vol] 10.3 g/dL Low 13.0-17.0 [facility] Comment on above: Order Comment: Speci men Type: BLOOD SPECIMENOrdering Facility: [facility] Address: [address] [place] [address] Performed By: #### 5 7021-8 ####ADK[facility] LABORATORYCLIA [id number] [address] Immature granulocytes (Bld) [#/Vol] 0.04 10*3/uL Normal <0.10 [facility] Comment on above: Order Comment: Speci men Type: BLOOD SPECIMENOrdering Facility: [facility] Address: [address] [place] [address] Performed By: #### 5 7021-8 ####ADKINS LABORATORYCLIA [id number] [address] Immature granulocytes/100 WBC (Bld) 0.6 % Normal [facility] Comment on above: Order Comment: Speci men Type: BLOOD SPECIMENOrdering Facility: [facility] Address: [address] [place] [address] Performed By: #### 5 7021-8 ####ADKINS LABORATORYCLIA [id number] [address] [place] Lymphocytes (Bld) [#/Vol] 1.09 10*3/uL Normal 1.00-4.00 [facility] Comment on above: Order Comment: Speci men Type: BLOOD SPECIMENOrdering Facility: [facility] Address: [address] [place] [address] Performed By: #### 5 7021-8 ####ADK[facility] LABORATORYCLIA [id number] [address] Lymphocytes/100 WBC (Bld) 17.4 % Normal [facility] Comment on above: Order Comment: Speci men Type: BLOOD SPECIMENOrdering Facility: [facility] Address: [address] [place] [address] Performed By: #### 5 7021-8 ####ADKINS LABORATORYCLIA [id number] [address] MCH (RBC) [Entitic mass] 28.9 pg Normal 26.0-34.0 [facility] Comment on above: Order Comment: Speci men Type: BLOOD SPECIMENOrdering Facility: [facility] Address: [address] [place] [address] Performed By: #### 5 7021-8 ####[facility] LABORATORYCLIA [id number] [address] MCHC (RBC) [Mass/Vol] 32.3 g/dL Normal 30.5-36.0 [facility] Comment on above: Order Comment: Speci men Type: BLOOD SPECIMENOrdering Facility: [facility] Address: [address] [place] [address] Performed By: #### 5 7021-8 ####[facility] LABORATORYCLIA [id number] [place] [address] [place] MCV (RBC) [Entitic vol] 89.4 fL Normal 80.0-100.0 [facility] Comment on above: Order Comment: Speci men Type: BLOOD SPECIMENOrdering Facility: [facility] Address: [address] [place] [address] Performed By: #### 5 7021-8 ####ADK[facility] LABORATORYCLIA [id number] [place] [address] [place] Monocytes (Bld) [#/Vol] 0.61 10*3/uL Normal <0.87 [facility] Comment on above: Order Comment: Speci men Type: BLOOD SPECIMENOrdering Facility: [facility] Address: [address] [place] [address] Performed By: #### 5 7021-8 ####[facility] LABORATORYCLIA [id number] [address] [place] Monocytes/100 WBC (Bld) 9.7 % Normal [facility] Comment on above: Order Comment: Speci men Type: BLOOD SPECIMENOrdering Facility: [facility] Address: [address] [place] [address] Performed By: #### 5 7021-8 ####[facility] LABORATORYCLIA [id number] [place] [address] [place] Neutrophils (Bld) [#/Vol] 4.15 10*3/uL Normal 1.45-7.50 [facility] Comment on above: Order Comment: Speci men Type: BLOOD SPECIMENOrdering Facility: [facility] Address: [address] [place] [address] Performed By: #### 5 7021-8 ####[facility] LABORATORYCLIA [id number] [address] [place] Neutrophils/100 WBC (Bld) 66.3 % Normal [facility] Comment on above: Order Comment: Speci men Type: BLOOD SPECIMENOrdering Facility: [facility] Address: [address] [place] [address] Performed By: #### 5 7021-8 ####[facility] LABORATORYCLIA [id number] [place] [address] [place] Nucleated RBC (Bld) [#/Vol] 10*3/uL Normal <0.01 [facility] Comment on above: Order Comment: Speci men Type: BLOOD SPECIMENOrdering Facility: [facility] Address: [address] [place] [address] Performed By: #### 5 7021-8 ####[facility] LABORATORYCLIA [id number] [place] [address] [place] Nucleated RBC/100 WBC (Bld) [Ratio] 0.0 /100 WBC Normal [facility] Comment on above: Order Comment: Speci men Type: BLOOD SPECIMENOrdering Facility: [facility] Address: [address] [place] [address] Performed By: #### 5 7021-8 ####[facility] LABORATORYCLIA [id number] [place] [address] [place] Platelet mean volume (Bld) [Entitic vol] 9.5 fL Normal 9.0-12.7 [facility] Comment on above: Order Comment: Speci men Type: BLOOD SPECIMENOrdering Facility: [facility] Address: [address] [place] [address] [place] [address] Performed By: #### 5 7021-8 ####ADK[facility] LABORATORYCLIA [id number] [place] [address] [place] Platelets (Bld) [#/Vol] 218 10*3/uL Normal 150-400 [facility] Comment on above: Order Comment: Speci men Type: BLOOD SPECIMENOrdering Facility: [facility] Address: [address] [place] [address] [place] [address] Performed By: #### 5 7021-8 ####[facility] LABORATORYCLIA [id number] [place] [address] [place] RBC (Bld) [#/Vol] 3.57 10*6/uL Low 4.20-6.00 [facility] Comment on above: Order Comment: Speci men Type: BLOOD SPECIMENOrdering Facility: [facility] Address: [address] [place] [address] Performed By: #### 5 7021-8 ####[facility] LABORATORYCLIA [id number] [address] WBC (Bld) [#/Vol] 6.26 10*3/uL Normal 3.70-11.00 [facility] Comment on above: Order Comment: Speci men Type: BLOOD SPECIMENOrdering Facility: [facility] Address: [address] [place] [address] Performed By: #### 5 7021-8 ####[facility] LABORATORYCLIA [id number] [address] CONSULT PROGon 07-17-2024 CONSULT PROG Normal [facility] Comprehensive metabolic 2000 panelon 07-17-2024 Albumin [Mass/Vol] 3.5 g/dL Low 3.9-4.9 [facility] Comment on above: Order Comment: Speci men Type: BLOOD SPECIMENOrdering Facility: [facility] Address: [address] [place] [address] Performed By: #### 2 4323-8 ####ADKINS LABORATORYCLIA [id number] [address] ALP [Catalytic activity/Vol] 114 U/L High 38-113 [facility] Comment on above: Order Comment: Speci men Type: BLOOD SPECIMENOrdering Facility: [facility] Address: [address] [place] [address] Performed By: #### 2 4323-8 ####ADKINS LABORATORYCLIA [id number] [address] ALT [Catalytic activity/Vol] 10 U/L Normal 10-54 [facility] Comment on above: Order Comment: Speci men Type: BLOOD SPECIMENOrdering Facility: [facility] Address: [address] [place] [address] Performed By: #### 2 4323-8 ####ADKINS LABORATORYCLIA [id number] [place] [address] [place] Anion gap [Moles/Vol] 11 mmol/L Normal 8-15 [facility] Comment on above: Order Comment: Speci men Type: BLOOD SPECIMENOrdering Facility: [facility] Address: [address] [place] [address] Performed By: #### 2 4323-8 ####ADKINS LABORATORYCLIA [id number] [address] [place] AST [Catalytic activity/Vol] 13 U/L Low 14-40 [facility] Comment on above: Order Comment: Speci men Type: BLOOD SPECIMENOrdering Facility: [facility] Address: [address] [place] [address] Performed By: #### 2 4323-8 ####ADKINS LABORATORYCLIA [id number] [address] [place] Bilirubin [Mass/Vol] 0.3 mg/dL Normal 0.2-1.3 [facility] Comment on above: Order Comment: Speci men Type: BLOOD SPECIMENOrdering Facility: [facility] Address: [address] [place] [address] Performed By: #### 2 4323-8 ####ADKINS LABORATORYCLIA [id number] [address] [place] Calcium [Mass/Vol] 9.7 mg/dL Normal 8.5-10.2 [facility] Comment on above: Order Comment: Speci men Type: BLOOD SPECIMENOrdering Facility: [facility] Address: [address] [place] [address] Performed By: #### 2 4323-8 ####ADKINS LABORATORYCLIA [id number] [place] [address] [place] Chloride [Moles/Vol] 112 mmol/L High 98-107 [facility] Comment on above: Order Comment: Speci men Type: BLOOD SPECIMENOrdering Facility: [facility] Address: [address] [place] [address] Performed By: #### 2 4323-8 ####ADKINS LABORATORYCLIA [id number] [place] [address] [place] CO2 [Moles/Vol] 22 mmol/L Normal 22-30 [facility] Comment on above: Order Comment: Luz vaughan Type: BLOOD SPECIMENOrdering Facility: [facility] Address: [address] [place] [address] Performed By: #### 2 4323-8 ####ADKINS LABORATORYCLIA [id number] [address] [place] Creatinine [Mass/Vol] 5.50 mg/dL High 0.73-1.22 [facility] Comment on above: Order Comment: Luz vaughan Type: BLOOD SPECIMENOrdering Facility: [facility] Address: [address] [place] [address] Performed By: #### 2 4323-8 ####ADKINS LABORATORYCLIA [id number] [address] Creatinine and Glomerular filtration rate.predicted panel (S/P/Bld) 11 mL/min/1.73m??? Low >=60 [facility] Comment on above: Order Comment: Luz vaughan Type: BLOOD SPECIMENOrdering Facility: [facility] Address: [address] [place] [address] Result Comment: Breanne mated Glomerular Filtration Rate [...] Performed By: #### 2 4323-8 ####ADKINS LABORATORYCLIA [id number] [address] [place] Glucose [Mass/Vol] 84 mg/dL Normal 74-99 [facility] Comment on above: Order Comment: Brooksjonas vaughan Type: BLOOD SPECIMENOrdering Facility: [facility] Address: [address] [place] [address] Result Comment: The [place] Diabetes Association (ADA) provides guidance for cutoff [...] Standards of Medical Care in Diabetes 2016, [place] [employer]. Diabetes Care. 2016.39(Suppl 1). Performed By: #### 2 4323-8 ####ADKINS LABORATORYCLIA [id number] [place] [address] [place] Potassium [Moles/Vol] 5.2 mmol/L High 3.7-5.1 [facility] Comment on above: Order Comment: Speci men Type: BLOOD SPECIMENOrdering Facility: [facility] Address: [address] [place] [address] Performed By: #### 2 4323-8 ####ADKINS LABORATORYCLIA [id number] [place] [address] [place] Protein [Mass/Vol] 6.3 g/dL Normal 6.3-8.0 [facility] Comment on above: Order Comment: Speci men Type: BLOOD SPECIMENOrdering Facility: [facility] Address: [address] [place] [address] Performed By: #### 2 4323-8 ####ADKINS LABORATORYCLIA [id number] [place] [address] [place] Sodium [Moles/Vol] 145 mmol/L High 136-144 [facility] Comment on above: Order Comment: Speci men Type: BLOOD SPECIMENOrdering Facility: [facility] Address: [address] [place] [address] Performed By: #### 2 4323-8 ####ADKINS LABORATORYCLIA [id number] [place] [address] [place] Urea nitrogen [Mass/Vol] 82 mg/dL High 9-24 [facility] Comment on above: Order Comment: Brooksi men Type: BLOOD SPECIMENOrdering Facility: [facility] Address: [address] [place] [address] Performed By: #### 2 4323-8 ####ADKINS LABORATORYCLIA [id number] [place] [address] [place] NURSING PROGon 07-17-2024 NURSING PROG Normal [facility] NUTRITIONon 07-17-2024 NUTRITION Normal [facility] CASE MANAGEMon 07-16-2024 CASE MANAGEM [facility] CBC W Auto Differential pane l (Bld)on 07-16-2024 Basophils (Bld) [#/Vol] 10*3/uL Normal <0.11 [facility] Comment on above: Order Comment: Speci men Type: BLOOD SPECIMENOrdering Facility: [facility] Address: [address] [place] [address] Performed By: #### 5 7021-8 ####ADKINS LABORATORYCLIA [id number] [place] [address] [place] Basophils/100 WBC (Bld) 0.1 % Normal [facility] Comment on above: Order Comment: Speci men Type: BLOOD SPECIMENOrdering Facility: [facility] Address: [address] [place] [address] Performed By: #### 5 7021-8 ####ADKINS LABORATORYCLIA [id number] [place] [address] [place] Differential cell count method Nom (Bld) Auto Normal [facility] Comment on above: Order Comment: Speci men Type: BLOOD SPECIMENOrdering Facility: [facility] Address: [address] [place] [address] Performed By: #### 5 7021-8 ####ADKINS LABORATORYCLIA [id number] [place] [address] [place] Eosinophils (Bld) [#/Vol] 0.21 10*3/uL Normal <0.46 [facility] Comment on above: Order Comment: Speci men Type: BLOOD SPECIMENOrdering Facility: [facility] Address: [address] [place] [address] Performed By: #### 5 7021-8 ####ADKINS LABORATORYCLIA [id number] [place] [address] [place] Eosinophils/100 WBC (Bld) 3.1 % Normal [facility] Comment on above: Order Comment: Speci men Type: BLOOD SPECIMENOrdering Facility: [facility] Address: [address] [place] [address] Performed By: #### 5 7021-8 ####ADKINS LABORATORYCLIA [id number] [place] [address] [place] Erythrocyte distribution width (RBC) [Ratio] 13.3 % Normal 11.5-15.0 [facility] Comment on above: Order Comment: Speci men Type: BLOOD SPECIMENOrdering Facility: [facility] Address: [address] [place] [address] Performed By: #### 5 7021-8 ####ADKINS LABORATORYCLIA [id number] [place] [address] [place] Hematocrit (Bld) [Volume fraction] 29.1 % Low 39.0-51.0 [facility] Comment on above: Order Comment: Speci men Type: BLOOD SPECIMENOrdering Facility: [facility] Address: [address] [place] [address] Performed By: #### 5 7021-8 ####ADKINS LABORATORYCLIA [id number] [place] [address] [place] Hemoglobin (Bld) [Mass/Vol] 9.2 g/dL Low 13.0-17.0 [facility] Comment on above: Order Comment: Speci men Type: BLOOD SPECIMENOrdering Facility: [facility] Address: [address] [place] [address] Performed By: #### 5 7021-8 ####ADKINS LABORATORYCLIA [id number] [place] [address] [place] Immature granulocytes (Bld) [#/Vol] 0.04 10*3/uL Normal <0.10 [facility] Comment on above: Order Comment: Speci men Type: BLOOD SPECIMENOrdering Facility: [facility] Address: [address] [place] [address] Performed By: #### 5 7021-8 ####ADKINS LABORATORYCLIA [id number] [place] [address] [facility] [place] Immature granulocytes/100 WBC (Bld) 0.6 % Normal [facility] Comment on above: Order Comment: Speci men Type: BLOOD SPECIMENOrdering Facility: [facility] Address: [address] [place] [address] Performed By: #### 5 7021-8 ####ADKINS LABORATORYCLIA [id number] [address] Lymphocytes (Bld) [#/Vol] 0.97 10*3/uL Low 1.00-4.00 [facility] Comment on above: Order Comment: Speci men Type: BLOOD SPECIMENOrdering Facility: [facility] Address: [address] [place] [address] Performed By: #### 5 7021-8 ####ADKINS LABORATORYCLIA [id number] [address] Lymphocytes/100 WBC (Bld) 14.4 % Normal [facility] Comment on above: Order Comment: Speci men Type: BLOOD SPECIMENOrdering Facility: [facility] Address: [address] [place] [address] Performed By: #### 5 7021-8 ####ADKINS LABORATORYCLIA [id number] [address] MCH (RBC) [Entitic mass] 28.4 pg Normal 26.0-34.0 [facility] Comment on above: Order Comment: Speci men Type: BLOOD SPECIMENOrdering Facility: [facility] Address: [address] [place] [address] Performed By: #### 5 7021-8 ####ADKINS LABORATORYCLIA [id number] [address] MCHC (RBC) [Mass/Vol] 31.6 g/dL Normal 30.5-36.0 [facility] Comment on above: Order Comment: Speci men Type: BLOOD SPECIMENOrdering Facility: [facility] Address: [address] [place] [address] Performed By: #### 5 7021-8 ####ADKINS LABORATORYCLIA [id number] [address] MCV (RBC) [Entitic vol] 89.8 fL Normal 80.0-100.0 [facility] Comment on above: Order Comment: Speci men Type: BLOOD SPECIMENOrdering Facility: [facility] Address: [address] [place] [address] Performed By: #### 5 7021-8 ####ADKINS LABORATORYCLIA [id number] [place] [address] [place] Monocytes (Bld) [#/Vol] 0.81 10*3/uL Normal <0.87 [facility] Comment on above: Order Comment: Speci men Type: BLOOD SPECIMENOrdering Facility: [facility] Address: [address] [place] [address] Performed By: #### 5 7021-8 ####ADKINS LABORATORYCLIA [id number] [address] [place] Monocytes/100 WBC (Bld) 12.0 % Normal [facility] Comment on above: Order Comment: Speci men Type: BLOOD SPECIMENOrdering Facility: [facility] Address: [address] [place] [address] Performed By: #### 5 7021-8 ####ADKINS LABORATORYCLIA [id number] [place] [address] [place] Neutrophils (Bld) [#/Vol] 4.69 10*3/uL Normal 1.45-7.50 [facility] Comment on above: Order Comment: Speci men Type: BLOOD SPECIMENOrdering Facility: [facility] Address: [address] [place] [address] Performed By: #### 5 7021-8 ####ADKINS LABORATORYCLIA [id number] [place] [address] [place] Neutrophils/100 WBC (Bld) 69.8 % Normal [facility] Comment on above: Order Comment: Speci men Type: BLOOD SPECIMENOrdering Facility: [facility] Address: [address] [place] [address] Performed By: #### 5 7021-8 ####ADKINS LABORATORYCLIA [id number] [place] [address] [place] Nucleated RBC (Bld) [#/Vol] 10*3/uL Normal <0.01 [facility] Comment on above: Order Comment: Speci men Type: BLOOD SPECIMENOrdering Facility: [facility] Address: [address] [place] [address] Performed By: #### 5 7021-8 ####ADKINS LABORATORYCLIA [id number] [place] [address] [place] Nucleated RBC/100 WBC (Bld) [Ratio] 0.0 /100 WBC Normal [facility] Comment on above: Order Comment: Speci men Type: BLOOD SPECIMENOrdering Facility: [facility] Address: [address] [place] [address] Performed By: #### 5 7021-8 ####ADKINS LABORATORYCLIA [id number] [place] [address] [place] Platelet mean volume (Bld) [Entitic vol] 9.2 fL Normal 9.0-12.7 [facility] Comment on above: Order Comment: Speci men Type: BLOOD SPECIMENOrdering Facility: [facility] Address: [address] [place] [address] Performed By: #### 5 7021-8 ####ADKINS LABORATORYCLIA [id number] [place] [address] [place] Platelets (Bld) [#/Vol] 188 10*3/uL Normal 150-400 [facility] Comment on above: Order Comment: Speci men Type: BLOOD SPECIMENOrdering Facility: [facility] Address: [address] [place] [address] Performed By: #### 5 7021-8 ####ADKINS LABORATORYCLIA [id number] [place] [address] [place] RBC (Bld) [#/Vol] 3.24 10*6/uL Low 4.20-6.00 [facility] Comment on above: Order Comment: Speci men Type: BLOOD SPECIMENOrdering Facility: [facility] Address: [address] [place] [address] Performed By: #### 5 7021-8 ####ADKINS LABORATORYCLIA [id number] [place] [address] [place] WBC (Bld) [#/Vol] 6.73 10*3/uL Normal 3.70-11.00 [facility] Comment on above: Order Comment: Speci men Type: BLOOD SPECIMENOrdering Facility: [facility] Address: [address] [place] [address] Performed By: #### 5 7021-8 ####SEBRING LABORATORYCLIA [id number] [place] [address] [place] CNCOon 07-16-2024 CNCO Letter Text [facility] CNDSon 07-16-2024 CNDS [facility] CNPNon 07-16-2024 CNPN Telephone (HCSIND) -- JOSÉ MANUEL ASHTON ([id number]) 1960 M T Date Time Provider Department 07/16/24 CLAUDIA CHOW HCSIND During your visit today, we recorded the following information about you: Maribeth Núñez 07/17/2024 8:44 AM Signed Date/Time: 07/17/2024 8:43 AM Spoke with Janell @ phone #: [phone] - Preferred # for contact: [phone] Have you received help from a home care company in the last 60 days? no Are you agreeable to [facility] services? yes What address will we be seeing you at? [address] [facility] [address] Do you have any upcoming appointments or [...] HTN (hy (more content not included)... Normal [facility] CONSULT PROGon 07-16-2024 CONSULT PROG Normal [facility] Comprehensive metabolic 2000 panelon 07-16-2024 Albumin [Mass/Vol] 3.2 g/dL Low 3.9-4.9 [facility] Comment on above: Order Comment: Speci men Type: BLOOD SPECIMENOrdering Facility: [facility] Address: [address] [place] [address] Performed By: #### 2 4323-8 ####SEBRING LABORATORYCLIA [id number] [place] [address] [place] ALP [Catalytic activity/Vol] 93 U/L Normal 38-113 [facility] Comment on above: Order Comment: Speci men Type: BLOOD SPECIMENOrdering Facility: [facility] Address: [address] [place] [address] Performed By: #### 2 4323-8 ####ADKINS LABORATORYCLIA [id number] [place] [address] [place] ALT [Catalytic activity/Vol] 10 U/L Normal 10-54 [facility] Comment on above: Order Comment: Speci men Type: BLOOD SPECIMENOrdering Facility: [facility] Address: [address] [place] [address] Performed By: #### 2 4323-8 ####ADKINS LABORATORYCLIA [id number] [place] [address] [place] Anion gap [Moles/Vol] 11 mmol/L Normal 8-15 [facility] Comment on above: Order Comment: Speci men Type: BLOOD SPECIMENOrdering Facility: [facility] Address: [address] [place] [address] Performed By: #### 2 4323-8 ####ADKINS LABORATORYCLIA [id number] [place] [address] [place] AST [Catalytic activity/Vol] 10 U/L Low 14-40 [facility] Comment on above: Order Comment: Speci men Type: BLOOD SPECIMENOrdering Facility: [facility] Address: [address] [place] [address] Performed By: #### 2 4323-8 ####ADKINS LABORATORYCLIA [id number] [place] [address] [place] Bilirubin [Mass/Vol] 0.2 mg/dL Normal 0.2-1.3 [facility] Comment on above: Order Comment: Speci men Type: BLOOD SPECIMENOrdering Facility: [facility] Address: [address] [place] [address] Performed By: #### 2 4323-8 ####ADKINS LABORATORYCLIA [id number] [place] [address] [place] Calcium [Mass/Vol] 9.2 mg/dL Normal 8.5-10.2 [facility] Comment on above: Order Comment: Speci men Type: BLOOD SPECIMENOrdering Facility: [facility] Address: [address] [place] [address] Performed By: #### 2 4323-8 ####ADKINS LABORATORYCLIA [id number] [place] [address] [place] Chloride [Moles/Vol] 109 mmol/L High 98-107 [facility] Comment on above: Order Comment: Speci men Type: BLOOD SPECIMENOrdering Facility: [facility] Address: [address] [place] [address] Performed By: #### 2 4323-8 ####ADKINS LABORATORYCLIA [id number] [place] [address] [place] CO2 [Moles/Vol] 24 mmol/L Normal 22-30 [facility] Comment on above: Order Comment: Speci men Type: BLOOD SPECIMENOrdering Facility: [facility] Address: [address] [place] [address] Performed By: #### 2 4323-8 ####ADKINS LABORATORYCLIA [id number] [address] [place] [facility] Creatinine [Mass/Vol] 5.71 mg/dL High 0.73-1.22 [facility] Comment on above: Order Comment: Luz vaughan Type: BLOOD SPECIMENOrdering Facility: [facility] Address: [address] [place] [address] Performed By: #### 2 4323-8 ####ADKINS LABORATORYCLIA [id number] [address] Creatinine and Glomerular filtration rate.predicted panel (S/P/Bld) 10 mL/min/1.73m??? Low >=60 [facility] Comment on above: Order Comment: Luz vaughan Type: BLOOD SPECIMENOrdering Facility: [facility] Address: [address] [place] [address] Result Comment: Breanne mated Glomerular Filtration Rate [...] Performed By: #### 2 4323-8 ####ADKINS LABORATORYCLIA [id number] [address] STATES OF [facility] Glucose [Mass/Vol] 115 mg/dL High 74-99 [facility] Comment on above: Order Comment: Luz vaughan Type: BLOOD SPECIMENOrdering Facility: [facility] Address: [address] [place] [address] Result Comment: The [place] [employer] (ADA) provides guidance for cutoff [...] Standards of Medical Care in Diabetes 2016, [place] [employer]. Diabetes Care. 2016.39(Suppl 1). Performed By: #### 2 4323-8 ####ADKINS LABORATORYCLIA [id number] [place] [address] [place] Potassium [Moles/Vol] 5.8 mmol/L High 3.7-5.1 [facility] Comment on above: Order Comment: Speci men Type: BLOOD SPECIMENOrdering Facility: [facility] Address: [address] [place] [address] Performed By: #### 2 4323-8 ####ADKINS LABORATORYCLIA [id number] [place] [address] [place] Protein [Mass/Vol] 5.7 g/dL Low 6.3-8.0 [facility] Comment on above: Order Comment: Speci men Type: BLOOD SPECIMENOrdering Facility: [facility] Address: [address] [place] [address] Performed By: #### 2 4323-8 ####ADKINS LABORATORYCLIA [id number] [place] [address] [place] Sodium [Moles/Vol] 144 mmol/L Normal 136-144 [facility] Comment on above: Order Comment: Brooksi men Type: BLOOD SPECIMENOrdering Facility: [facility] Address: [address] [place] [address] Performed By: #### 2 4323-8 ####ADKINS LABORATORYCLIA [id number] [place] [address] [place] Urea nitrogen [Mass/Vol] 82 mg/dL High 9-24 [facility] Comment on above: Order Comment: Brooksi men Type: BLOOD SPECIMENOrdering Facility: [facility] Address: [address] [place] [address] Performed By: #### 2 4323-8 ####ADKINS LABORATORYCLIA [id number] [place] [address] [place] THERAPY NTon 07-16-2024 THERAPY NT Normal [facility] CASE MANAGEMon 07-15-2024 CASE MANAGEM Normal [facility] CBC W Auto Differential pane l (Bld)on 07-15-2024 Basophils (Bld) [#/Vol] 10*3/uL Normal <0.11 [facility] Comment on above: Order Comment: Speci men Type: BLOOD SPECIMENOrdering Facility: [facility] Address: [address] [place] [address] Performed By: #### 5 7021-8 ####ADKINS LABORATORYCLIA [id number] [place] [address] [place] Basophils/100 WBC (Bld) 0.0 % Normal [facility] Comment on above: Order Comment: Speci men Type: BLOOD SPECIMENOrdering Facility: [facility] Address: [address] [place] [address] Performed By: #### 5 7021-8 ####ADKINS LABORATORYCLIA [id number] [place] [address] [place] Differential cell count method Nom (Bld) Auto Normal [facility] Comment on above: Order Comment: Speci men Type: BLOOD SPECIMENOrdering Facility: [facility] Address: [address] [place] [address] Performed By: #### 5 7021-8 ####ADKINS LABORATORYCLIA [id number] [place] [address] [place] Eosinophils (Bld) [#/Vol] 0.10 10*3/uL Normal <0.46 [facility] Comment on above: Order Comment: Speci men Type: BLOOD SPECIMENOrdering Facility: [facility] Address: [address] [place] [address] Performed By: #### 5 7021-8 ####ADKINS LABORATORYCLIA [id number] [place] [address] [place] Eosinophils/100 WBC (Bld) 1.7 % Normal [facility] Comment on above: Order Comment: Speci men Type: BLOOD SPECIMENOrdering Facility: [facility] Address: [address] [place] [address] Performed By: #### 5 7021-8 ####ADKINS LABORATORYCLIA [id number] [address] Erythrocyte distribution width (RBC) [Ratio] 13.5 % Normal 11.5-15.0 [facility] Comment on above: Order Comment: Speci men Type: BLOOD SPECIMENOrdering Facility: [facility] Address: [address] [place] [address] Performed By: #### 5 7021-8 ####ADKINS LABORATORYCLIA [id number] [address] [place] Hematocrit (Bld) [Volume fraction] 30.0 % Low 39.0-51.0 [facility] Comment on above: Order Comment: Speci men Type: BLOOD SPECIMENOrdering Facility: [facility] Address: [address] [place] [address] Performed By: #### 5 7021-8 ####ADKINS LABORATORYCLIA [id number] [address] [place] Hemoglobin (Bld) [Mass/Vol] 9.6 g/dL Low 13.0-17.0 [facility] Comment on above: Order Comment: Speci men Type: BLOOD SPECIMENOrdering Facility: [facility] Address: [address] [place] [address] Performed By: #### 5 7021-8 ####ADKINS LABORATORYCLIA [id number] [address] [place] Immature granulocytes (Bld) [#/Vol] 0.03 10*3/uL Normal <0.10 [facility] Comment on above: Order Comment: Speci men Type: BLOOD SPECIMENOrdering Facility: [facility] Address: [address] [place] [address] Performed By: #### 5 7021-8 ####ADKINS LABORATORYCLIA [id number] [address] Immature granulocytes/100 WBC (Bld) 0.5 % Normal [facility] Comment on above: Order Comment: Speci men Type: BLOOD SPECIMENOrdering Facility: [facility] Address: [address] [place] [address] Performed By: #### 5 7021-8 ####ADKINS LABORATORYCLIA [id number] [address] [place] Lymphocytes (Bld) [#/Vol] 1.09 10*3/uL Normal 1.00-4.00 [facility] Comment on above: Order Comment: Speci men Type: BLOOD SPECIMENOrdering Facility: [facility] Address: [address] [place] [address] Performed By: #### 5 7021-8 ####ADKINS LABORATORYCLIA [id number] [address] Lymphocytes/100 WBC (Bld) 19.1 % Normal [facility] Comment on above: Order Comment: Speci men Type: BLOOD SPECIMENOrdering Facility: [facility] Address: [address] [place] [address] Performed By: #### 5 7021-8 ####ADKINS LABORATORYCLIA [id number] [address] MCH (RBC) [Entitic mass] 28.8 pg Normal 26.0-34.0 [facility] Comment on above: Order Comment: Speci men Type: BLOOD SPECIMENOrdering Facility: [facility] Address: [address] [place] [address] Performed By: #### 5 7021-8 ####ADKINS LABORATORYCLIA [id number] [address] MCHC (RBC) [Mass/Vol] 32.0 g/dL Normal 30.5-36.0 [facility] Comment on above: Order Comment: Speci men Type: BLOOD SPECIMENOrdering Facility: [facility] Address: [address] [place] [address] Performed By: #### 5 7021-8 ####ADKINS LABORATORYCLIA [id number] [address] MCV (RBC) [Entitic vol] 90.1 fL Normal 80.0-100.0 [facility] Comment on above: Order Comment: Speci men Type: BLOOD SPECIMENOrdering Facility: [facility] Address: [address] [place] [address] Performed By: #### 5 7021-8 ####ADKINS LABORATORYCLIA [id number] [place] [address] [place] Monocytes (Bld) [#/Vol] 0.67 10*3/uL Normal <0.87 [facility] Comment on above: Order Comment: Speci men Type: BLOOD SPECIMENOrdering Facility: [facility] Address: [address] [place] [address] Performed By: #### 5 7021-8 ####ADKINS LABORATORYCLIA [id number] [address] [place] Monocytes/100 WBC (Bld) 11.7 % Normal [facility] Comment on above: Order Comment: Speci men Type: BLOOD SPECIMENOrdering Facility: [facility] Address: [address] [place] [address] Performed By: #### 5 7021-8 ####ADKINS LABORATORYCLIA [id number] [place] [address] [place] Neutrophils (Bld) [#/Vol] 3.83 10*3/uL Normal 1.45-7.50 [facility] Comment on above: Order Comment: Speci men Type: BLOOD SPECIMENOrdering Facility: [facility] Address: [address] [place] [address] Performed By: #### 5 7021-8 ####ADKINS LABORATORYCLIA [id number] [place] [address] [place] Neutrophils/100 WBC (Bld) 67.0 % Normal [facility] Comment on above: Order Comment: Speci men Type: BLOOD SPECIMENOrdering Facility: [facility] Address: [address] [place] [address] Performed By: #### 5 7021-8 ####ADKINS LABORATORYCLIA [id number] [place] [address] [place] Nucleated RBC (Bld) [#/Vol] 10*3/uL Normal <0.01 [facility] Comment on above: Order Comment: Speci men Type: BLOOD SPECIMENOrdering Facility: [facility] Address: [address] [place] [address] Performed By: #### 5 7021-8 ####ADKINS LABORATORYCLIA [id number] [place] [address] [place] Nucleated RBC/100 WBC (Bld) [Ratio] 0.0 /100 WBC Normal [facility] Comment on above: Order Comment: Speci men Type: BLOOD SPECIMENOrdering Facility: [facility] Address: [address] [place] [address] Performed By: #### 5 7021-8 ####ADKINS LABORATORYCLIA [id number] [place] [address] [place] Platelet mean volume (Bld) [Entitic vol] 9.5 fL Normal 9.0-12.7 [facility] Comment on above: Order Comment: Speci men Type: BLOOD SPECIMENOrdering Facility: [facility] Address: [address] [place] [address] Performed By: #### 5 7021-8 ####ADKINS LABORATORYCLIA [id number] [place] [address] [place] Platelets (Bld) [#/Vol] 214 10*3/uL Normal 150-400 [facility] Comment on above: Order Comment: Speci men Type: BLOOD SPECIMENOrdering Facility: [facility] Address: [address] [place] [address] Performed By: #### 5 7021-8 ####ADKINS LABORATORYCLIA [id number] [place] [address] [place] RBC (Bld) [#/Vol] 3.33 10*6/uL Low 4.20-6.00 [facility] Comment on above: Order Comment: Speci men Type: BLOOD SPECIMENOrdering Facility: [facility] Address: [address] [place] [address] Performed By: #### 5 7021-8 ####ADKINS LABORATORYCLIA [id number] [place] [address] [place] WBC (Bld) [#/Vol] 5.72 10*3/uL Normal 3.70-11.00 [facility] Comment on above: Order Comment: Speci men Type: BLOOD SPECIMENOrdering Facility: [facility] Address: [facility] [place] [address] Performed By: #### 5 7021-8 ####SEBR[facility] LABORATORYCLIA [id number] [place], [place] [id number] [place] [address] [place] CONSULT PROGon 07-15-2024 CONSULT PROG Normal [facility] Magnesium SerPl-mCncon 07-15 Magnesium [Mass/Vol] 2.2 mg/dL Normal 1.7-2.3 [facility] Comment on above: Order Comment: Speci men Type: BLOOD SPECIMENOrdering Facility: [facility] Address: [facility] [place] [address] Performed By: #### 2 4362-6, 20216-5 ####ADKINS LABORATORYCLIA [id number] [place] [id number] [place] Renal function 2000 panelon 07-15-2024 Albumin [Mass/Vol] 3.1 g/dL Low 3.9-4.9 [facility] Comment on above: Order Comment: Speci men Type: BLOOD SPECIMENOrdering Facility: [facility] Address: [facility] [place] [address] Performed By: #### 2 4362-6, ####ADKINS LABORATORYCLIA [id number] [place] [id number] [place] Anion gap [Moles/Vol] 13 mmol/L Normal 8-15 [facility] Comment on above: Order Comment: Speci men Type: BLOOD SPECIMENOrdering Facility: [facility] Address: [address] [place], [place] [address] [address] Performed By: #### 2 4362-6, ####ADKINS LABORATORYCLIA [id number] [place] [id number] [place] Calcium [Mass/Vol] 8.8 mg/dL Normal 8.5-10.2 [facility] Comment on above: Order Comment: Speci men Type: BLOOD SPECIMENOrdering Facility: [facility] Address: [address] [place], [place] [address] [address] Performed By: #### 2 4362-6, ####ADKINS LABORATORYCLIA [id number] [place] [address] [place] Chloride [Moles/Vol] 108 mmol/L High 98-107 [facility] Comment on above: Order Comment: Luz vaughan Type: BLOOD SPECIMENOrdering Facility: [facility] Address: [address] [place] [address] Performed By: #### 2 4362-6, ####ADKINS LABORATORYCLIA [id number] [place] [id number] [place] CO2 [Moles/Vol] 24 mmol/L Normal 22-30 [facility] Comment on above: Order Comment: Luz vaughan Type: BLOOD SPECIMENOrdering Facility: [facility] Address: [address] [place] [address] Performed By: #### 2 4362-6, ####ADKINS LABORATORYCLIA [id number] [place] [address] [place] Creatinine [Mass/Vol] 5.17 mg/dL High 0.73-1.22 [facility] Comment on above: Order Comment: Luz vaughan Type: BLOOD SPECIMENOrdering Facility: [facility] Address: [address] [place] [address] Performed By: #### 2 4362-6, ####ADKINS LABORATORYCLIA [id number] [address] Creatinine and Glomerular filtration rate.predicted panel (S/P/Bld) 12 mL/min/1.73m??? Low >=60 [facility] Comment on above: Order Comment: Luz vaughan Type: BLOOD SPECIMENOrdering Facility: [facility] Address: [address] [place] [address] Result Comment: Breanne mated Glomerular Filtration Rate [...] Performed By: #### 2 4362-6, ####ADKINS LABORATORYCLIA [id number] [place] [id number] [place] Glucose [Mass/Vol] 160 mg/dL High 74-99 [facility] Comment on above: Order Comment: uLz vaughan Type: BLOOD SPECIMENOrdering Facility: [facility] Address: [address] [place], [place] [id number] Result Comment: The [place] [employer] (ADA) provides guidance for cutoff [...] Standards of Medical Care in Diabetes 2016, [place] [employer]. Diabetes Care. 2016.39(Suppl 1). Performed By: #### 2 4362-6, ####ADKINS LABORATORYCLIA [id number] [place] [id number] [place] Phosphate [Mass/Vol] 6.6 mg/dL High 2.7-4.8 [facility] Comment on above: Order Comment: Luz vaughan Type: BLOOD SPECIMENOrdering Facility: [facility] Address: [address] [place] [address] Performed By: #### 2 4362-6, ####ADKINS LABORATORYCLIA [id number] [place] [address] [place] Potassium [Moles/Vol] 5.3 mmol/L High 3.7-5.1 [facility] Comment on above: Order Comment: Luz vaughan Type: BLOOD SPECIMENOrdering Facility: [facility] Address: [address] [place] [address] Performed By: #### 2 4362-6, ####ADKINS LABORATORYCLIA [id number] [place] [address] [place] Sodium [Moles/Vol] 145 mmol/L High 136-144 [facility] Comment on above: Order Comment: Speci men Type: BLOOD SPECIMENOrdering Facility: [facility] Address: [address] [place] [address] Performed By: #### 2 4362-6, ####ADKINS LABORATORYCLIA [id number] [place] [id number] [place] Urea nitrogen [Mass/Vol] 79 mg/dL High 9-24 [facility] Comment on above: Order Comment: Speci men Type: BLOOD SPECIMENOrdering Facility: [facility] Address: [address] [place] [address] Performed By: #### 2 4362-6, ####ADKINS LABORATORYCLIA [id number] [place] [address] [place] ALLIED HEALTHon 07-14-2024 ALLIED HEALTH Normal [facility] Albumin SerPl-mCncon 025 Albumin [Mass/Vol] 3.0 g/dL Low 3.9-4.9 [facility] Comment on above: Order Comment: Speci men Type: BLOOD SPECIMENOrdering Facility: [facility] Address: [address] [place] [address] Performed By: #### 1 751-7, 3040-3, 40677-8, 67068-4, 2777-1, ####ADKINS LABORATORYCLIA [id number] [place] [id number] [place] Basic metabolic 2000 panelon 07-14-2024 Anion gap [Moles/Vol] 13 mmol/L Normal 8-15 [facility] Comment on above: Order Comment: Speci men Type: BLOOD SPECIMENOrdering Facility: [facility] Address: [address] [place] [address] Performed By: #### 1 751-7, 3040-3, 15769-9, 90358-7, 2777-1, ####ADKINS LABORATORYCLIA [id number] [place] [address] [place] Calcium [Mass/Vol] 8.8 mg/dL Normal 8.5-10.2 [facility] Comment on above: Order Comment: Speci men Type: BLOOD SPECIMENOrdering Facility: [facility] Address: [address] [place] [address] Performed By: #### 1 751-7, 3040-3, 85302-3, 01430-5, 2777-1, 24685-2 ####SEBR[facility] LABORATORYCLIA [id number] [place] [address] [place] Chloride [Moles/Vol] 105 mmol/L Normal 98-107 [facility] Comment on above: Order Comment: Speci men Type: BLOOD SPECIMENOrdering Facility: [facility] Address: [address] [place] [address] Performed By: #### 1 751-7, 3040-3, 33971-6, 83356-6, 2777-1, 17401-4 ####SEBR[facility] LABORATORYCLIA [id number] [place] [address] [place] CO2 [Moles/Vol] 24 mmol/L Normal 22-30 [facility] Comment on above: Order Comment: Speci men Type: BLOOD SPECIMENOrdering Facility: [facility] Address: [address] [place] [address] Performed By: #### 1 751-7, 3040-3, 71693-9, 31513-2, 2777-1, 56338-4 ####SEBRING LABORATORYCLIA [id number] [place] [id number] [place] Creatinine [Mass/Vol] 5.34 mg/dL High 0.73-1.22 [facility] Comment on above: Order Comment: Speci men Type: BLOOD SPECIMENOrdering Facility: [facility] Address: [address] [place] [address] Performed By: #### 1 751-7, 3040-3, 57134-2, 16350-1, 2777-1, 22515-8 ####SEBRING LABORATORYCLIA [id number] [address] Creatinine and Glomerular filtration rate.predicted panel (S/P/Bld) 11 mL/min/1.73m??? Low >=60 [facility] Comment on above: Order Comment: Luz vaughan Type: BLOOD SPECIMENOrdering Facility: [facility] Address: [address] [place] [address] Result Comment: Breanne mated Glomerular Filtration Rate [...] GFR. Performed By: #### 1 751-7, 3040-3, 26019-8, 79727-2, 2777-1, 94973-0 ####SEBRING LABORATORYCLIA [id number] [address] Glucose [Mass/Vol] 59 mg/dL Low 74-99 [facility] Comment on above: Order Comment: Luz vaughan Type: BLOOD SPECIMENOrdering Facility: [facility] Address: [address] [place] [address] Result Comment: The [place] Diabetes Association (ADA) provides guidance for cutoff [...] Standards of Medical Care in Diabetes 2016, [place] [employer]. Diabetes Care. 2016.39(Suppl 1). Performed By: #### 1 751-7, 3040-3, 64562-3, 50731-1, 2777-1, 34578-8 ####SEBRING LABORATORYCLIA [id number] [place] [id number] [place] Potassium [Moles/Vol] 4.7 mmol/L Normal 3.7-5.1 [facility] Comment on above: Order Comment: Speci men Type: BLOOD SPECIMENOrdering Facility: [facility] Address: [address] [place] [address] Performed By: #### 1 751-7, 3040-3, 34260-5, 13639-0, 2777-1, 23570-4 ####SEBRING LABORATORYCLIA [id number] [address] STATES OF [facility] Sodium [Moles/Vol] 142 mmol/L Normal 136-144 [facility] Comment on above: Order Comment: Speci men Type: BLOOD SPECIMENOrdering Facility: [facility] Address: [address] [place] [address] Performed By: #### 1 751-7, 3040-3, 16458-3, 63412-2, 2777-1, 91727-1 ####SEBRING LABORATORYCLIA [id number] [place] [address] [place] Urea nitrogen [Mass/Vol] 71 mg/dL High 9-24 [facility] Comment on above: Order Comment: Speci men Type: BLOOD SPECIMENOrdering Facility: [facility] Address: [address] [place] [address] Performed By: #### 1 751-7, 3040-3, 58352-0, 19483-6, 2777-1, 71723-9 ####SEBRING LABORATORYCLIA [id number] [address] [place] CBC W Auto Differential pane l (Bld)on 07-14-2024 Basophils (Bld) [#/Vol] 10*3/uL Normal <0.11 [facility] Comment on above: Order Comment: Speci men Type: BLOOD SPECIMENOrdering Facility: [facility] Address: [address] [place] [address] Performed By: #### 5 7021-8 ####SEBRING LABORATORYCLIA [id number] [address] Basophils/100 WBC (Bld) 0.2 % Normal [facility] Comment on above: Order Comment: Speci men Type: BLOOD SPECIMENOrdering Facility: [facility] Address: [address] [place] [address] Performed By: #### 5 7021-8 ####ADKINS LABORATORYCLIA [id number] [place] [address] [place] Differential cell count method Nom (Bld) Auto Normal [facility] Comment on above: Order Comment: Speci men Type: BLOOD SPECIMENOrdering Facility: [facility] Address: [address] [place] [address] Performed By: #### 5 7021-8 ####ADKINS LABORATORYCLIA [id number] [place] [address] [place] Eosinophils (Bld) [#/Vol] 0.10 10*3/uL Normal <0.46 [facility] Comment on above: Order Comment: Speci men Type: BLOOD SPECIMENOrdering Facility: [facility] Address: [address] [place] [address] Performed By: #### 5 7021-8 ####ADKINS LABORATORYCLIA [id number] [place] [address] [place] Eosinophils/100 WBC (Bld) 2.2 % Normal [facility] Comment on above: Order Comment: Speci men Type: BLOOD SPECIMENOrdering Facility: [facility] Address: [address] [place] [address] Performed By: #### 5 7021-8 ####ADKINS LABORATORYCLIA [id number] [place] [address] [place] Erythrocyte distribution width (RBC) [Ratio] 13.3 % Normal 11.5-15.0 [facility] Comment on above: Order Comment: Speci men Type: BLOOD SPECIMENOrdering Facility: [facility] Address: [address] [place] [address] Performed By: #### 5 7021-8 ####ADKINS LABORATORYCLIA [id number] [place] [address] [place] Hematocrit (Bld) [Volume fraction] 29.8 % Low 39.0-51.0 [facility] Comment on above: Order Comment: Speci men Type: BLOOD SPECIMENOrdering Facility: [facility] Address: [address] [place] [address] Performed By: #### 5 7021-8 ####ADKINS LABORATORYCLIA [id number] [place] [address] [place] Hemoglobin (Bld) [Mass/Vol] 9.6 g/dL Low 13.0-17.0 [facility] Comment on above: Order Comment: Speci men Type: BLOOD SPECIMENOrdering Facility: [facility] Address: [address] [place] [address] Performed By: #### 5 7021-8 ####ADKINS LABORATORYCLIA [id number] [place] [address] [place] Immature granulocytes (Bld) [#/Vol] 0.03 10*3/uL Normal <0.10 [facility] Comment on above: Order Comment: Speci men Type: BLOOD SPECIMENOrdering Facility: [facility] Address: [address] [place] [address] Performed By: #### 5 7021-8 ####ADKINS LABORATORYCLIA [id number] [address] [place] Immature granulocytes/100 WBC (Bld) 0.7 % Normal [facility] Comment on above: Order Comment: Speci men Type: BLOOD SPECIMENOrdering Facility: [facility] Address: [address] [place] [address] Performed By: #### 5 7021-8 ####ADKINS LABORATORYCLIA [id number] [place] [address] [place] Lymphocytes (Bld) [#/Vol] 1.15 10*3/uL Normal 1.00-4.00 [facility] Comment on above: Order Comment: Speci men Type: BLOOD SPECIMENOrdering Facility: [facility] Address: [address] [place] [address] Performed By: #### 5 7021-8 ####ADKINS LABORATORYCLIA [id number] [address] [place] Lymphocytes/100 WBC (Bld) 25.3 % Normal [facility] Comment on above: Order Comment: Speci men Type: BLOOD SPECIMENOrdering Facility: [facility] Address: [address] [place] [address] Performed By: #### 5 7021-8 ####ADKINS LABORATORYCLIA [id number] [address] MCH (RBC) [Entitic mass] 28.4 pg Normal 26.0-34.0 [facility] Comment on above: Order Comment: Speci men Type: BLOOD SPECIMENOrdering Facility: [facility] Address: [address] [place] [address] Performed By: #### 5 7021-8 ####ADKINS LABORATORYCLIA [id number] [address] MCHC (RBC) [Mass/Vol] 32.2 g/dL Normal 30.5-36.0 [facility] Comment on above: Order Comment: Speci men Type: BLOOD SPECIMENOrdering Facility: [facility] Address: [address] [place] [address] Performed By: #### 5 7021-8 ####ADKINS LABORATORYCLIA [id number] [address] MCV (RBC) [Entitic vol] 88.2 fL Normal 80.0-100.0 [facility] Comment on above: Order Comment: Speci men Type: BLOOD SPECIMENOrdering Facility: [facility] Address: [address] [place] [address] Performed By: #### 5 7021-8 ####ADKINS LABORATORYCLIA [id number] [address] Monocytes (Bld) [#/Vol] 0.45 10*3/uL Normal <0.87 [facility] Comment on above: Order Comment: Speci men Type: BLOOD SPECIMENOrdering Facility: [facility] Address: [address] [place] [address] Performed By: #### 5 7021-8 ####ADKINS LABORATORYCLIA [id number] [place] [address] [place] Monocytes/100 WBC (Bld) 9.9 % Normal [facility] Comment on above: Order Comment: Speci men Type: BLOOD SPECIMENOrdering Facility: [facility] Address: [address] [place] [address] Performed By: #### 5 7021-8 ####ADKINS LABORATORYCLIA [id number] [place] [address] [place] Neutrophils (Bld) [#/Vol] 2.80 10*3/uL Normal 1.45-7.50 [facility] Comment on above: Order Comment: Speci men Type: BLOOD SPECIMENOrdering Facility: [facility] Address: [address] [place] [address] Performed By: #### 5 7021-8 ####ADKINS LABORATORYCLIA [id number] [place] [address] [place] Neutrophils/100 WBC (Bld) 61.7 % Normal [facility] Comment on above: Order Comment: Speci men Type: BLOOD SPECIMENOrdering Facility: [facility] Address: [address] [place] [address] Performed By: #### 5 7021-8 ####ADKINS LABORATORYCLIA [id number] [place] [address] [place] Nucleated RBC (Bld) [#/Vol] 10*3/uL Normal <0.01 [facility] Comment on above: Order Comment: Speci men Type: BLOOD SPECIMENOrdering Facility: [facility] Address: [address] [place] [address] Performed By: #### 5 7021-8 ####ADKINS LABORATORYCLIA [id number] [place] [address] [place] Nucleated RBC/100 WBC (Bld) [Ratio] 0.0 /100 WBC Normal [facility] Comment on above: Order Comment: Speci men Type: BLOOD SPECIMENOrdering Facility: [facility] Address: [address] [place] [address] Performed By: #### 5 7021-8 ####ADKINS LABORATORYCLIA [id number] [place] [address] [place] Platelet mean volume (Bld) [Entitic vol] 9.6 fL Normal 9.0-12.7 [facility] Comment on above: Order Comment: Speci men Type: BLOOD SPECIMENOrdering Facility: [facility] Address: [address] [place] [address] [place] [address] Performed By: #### 5 7021-8 ####ADKINS LABORATORYCLIA [id number] [place] [address] [place] Platelets (Bld) [#/Vol] 230 10*3/uL Normal 150-400 [facility] Comment on above: Order Comment: Speci men Type: BLOOD SPECIMENOrdering Facility: [facility] Address: [address] [place] [address] Performed By: #### 5 7021-8 ####SEBRING LABORATORYCLIA [id number] [place] [address] [place] RBC (Bld) [#/Vol] 3.38 10*6/uL Low 4.20-6.00 [facility] Comment on above: Order Comment: Speci men Type: BLOOD SPECIMENOrdering Facility: [facility] Address: [address] [place] [address] Performed By: #### 5 7021-8 ####SEBRING LABORATORYCLIA [id number] [place] [address] [place] WBC (Bld) [#/Vol] 4.54 10*3/uL Normal 3.70-11.00 [facility] Comment on above: Order Comment: Speci men Type: BLOOD SPECIMENOrdering Facility: [facility] Address: [address] [place] [address] Performed By: #### 5 7021-8 ####SEBRING LABORATORYCLIA [id number] [place] [address] [place] CONSULT PROGon 07-14-2024 CONSULT PROG Normal [facility] CT ABD/PEL WO IVCONon 2024 CT ABD/PEL WO IVCON Normal [facility] Hepatic function 2000 panelo n 07-14-2024 ALP [Catalytic activity/Vol] 65 U/L Normal 38-113 [facility] Comment on above: Order Comment: Speci men Type: BLOOD SPECIMENOrdering Facility: [facility] Address: [address] [place] [address] Performed By: #### 1 751-7, 3040-3, 93905-7, 20565-6, 2777-1, 45275-5 ####ADKINS LABORATORYCLIA [id number] [place] [address] [place] ALT [Catalytic activity/Vol] 9 U/L Low 10-54 [facility] Comment on above: Order Comment: Speci men Type: BLOOD SPECIMENOrdering Facility: [facility] Address: [address] [place] [address] Performed By: #### 1 751-7, 3040-3, 61219-7, 74935-6, 2777-1, ####ADKINS LABORATORYCLIA [id number] [address] [place] AST [Catalytic activity/Vol] 13 U/L Low 14-40 [facility] Comment on above: Order Comment: Speci men Type: BLOOD SPECIMENOrdering Facility: [facility] Address: [address] [place] [address] Performed By: #### 1 751-7, 3040-3, 24530-3, 20155-1, 277-1, ####ADKINS LABORATORYCLIA [id number] [place] [address] [place] Bilirubin [Mass/Vol] 0.2 mg/dL Normal 0.2-1.3 [facility] Comment on above: Order Comment: Speci men Type: BLOOD SPECIMENOrdering Facility: [facility] Address: [address] [place] [address] Performed By: #### 1 751-7, 3040-3, 63936-8, 95856-1, 2777-1, ####ADKINS LABORATORYCLIA [id number] [address] Bilirubin.conjugated [Mass/Vol] mg/dL Normal <0.3 [facility] Comment on above: Order Comment: Speci men Type: BLOOD SPECIMENOrdering Facility: [facility] Address: [address] [place], [place] [address] Performed By: #### 1 751-7, 3040-3, 13053-6, 56814-1, 2777-1, ####SEBRING LABORATORYCLIA [id number] [place] [address] [place] Protein [Mass/Vol] 5.5 g/dL Low 6.3-8.0 [facility] Comment on above: Order Comment: Speci men Type: BLOOD SPECIMENOrdering Facility: [facility] Address: [address] [place] [address] Performed By: #### 1 751-7, 3040-3, 12569-5, 71857-0, 2776-1, ####SEBRING LABORATORYCLIA [id number] [place] [address] [place] Lipase SerPl-cCncon 07-15-19 25 Lipase [Catalytic activity/Vol] 12 U/L Low 16-61 [facility] Comment on above: Order Comment: Speci men Type: BLOOD SPECIMENOrdering Facility: [facility] Address: [address] [place] [address] Performed By: #### 1 751-7, 3040-3, 17645-7, 14482-6, 2776-1, ####SEBRING LABORATORYCLIA [id number] [place] [address] [place] Magnesium SerPl-mCncon 07-14 Magnesium [Mass/Vol] 2.0 mg/dL Normal 1.7-2.3 [facility] Comment on above: Order Comment: Speci men Type: BLOOD SPECIMENOrdering Facility: [facility] Address: [address] [place] [address] Performed By: #### 1 751-7, 3040-3, 02636-2, 63979-8, 2776-1, ####SEBRING LABORATORYCLIA [id number] [place] [address] [place] NURSING PROGon 07-14-2024 NURSING PROG Normal [facility] Phosphate SerPl-mCncon 07-14 Phosphate [Mass/Vol] 7.4 mg/dL High 2.7-4.8 [facility] Comment on above: Order Comment: Speci men Type: BLOOD SPECIMENOrdering Facility: [facility] Address: [address] [place] [address] Performed By: #### 1 751-7, 3040-3, 81645-8, 65447-3, 2777-1, 33676-8 ####SEBRING LABORATORYCLIA [id number] [place] [address] [place] Albumin [facility] Albumin [Mass/Vol] 3.1 g/dL Low 3.9-4.9 [facility] Comment on above: Order Comment: Speci men Type: BLOOD SPECIMENOrdering Facility: [facility] Address: [address] [place] [address] Performed By: #### 2 777-1, 175-7, 88990-9, 45092-1 ####SEBRING LABORATORYCLIA [id number] [place] [address] [place] Basic metabolic 2000 panelon 07-13-2024 Anion gap [Moles/Vol] 10 mmol/L Normal 8-15 [facility] Comment on above: Order Comment: Speci men Type: BLOOD SPECIMENOrdering Facility: [facility] Address: [address] [place] [address] Performed By: #### 2 777-1, 175-7, 43654-7, 71644-2 ####SEBRING LABORATORYCLIA [id number] [place] [address] [place] Calcium [Mass/Vol] 9.1 mg/dL Normal 8.5-10.2 [facility] Comment on above: Order Comment: Speci men Type: BLOOD SPECIMENOrdering Facility: [facility] Address: [address] [place] [address] Performed By: #### 2 777-1, 175-7, 53923-0, 04917-9 ####SEBRING LABORATORYCLIA [id number] [place] [address] [facility] [place] Chloride [Moles/Vol] 108 mmol/L High 98-107 [facility] Comment on above: Order Comment: Luz vaughan Type: BLOOD SPECIMENOrdering Facility: [facility] Address: [facility] [place] [id number] Performed By: #### 2 777-1, 7, 90008-7, 36379-9 ####SEBRING LABORATORYCLIA [id number] [place] [address] [place] CO2 [Moles/Vol] 24 mmol/L Normal 22-30 [facility] Comment on above: Order Comment: Brooski men Type: BLOOD SPECIMENOrdering Facility: [facility] Address: [address] [place] [address] Performed By: #### 2 777-1, 1750-10, 05699-0, 86519-8 ####SEBRING LABORATORYCLIA [id number] [address] [place] Creatinine [Mass/Vol] 5.30 mg/dL High 0.73-1.22 [facility] Comment on above: Order Comment: Luz vaughan Type: BLOOD SPECIMENOrdering Facility: [facility] Address: [address] [place] [address] Performed By: #### 2 777-1, 1750-10, 71651-2, 94508-0 ####SEBRING LABORATORYCLIA [id number] [place] [address] [facility] Creatinine and Glomerular filtration rate.predicted panel (S/P/Bld) 11 mL/min/1.73m??? Low >=60 [facility] Comment on above: Order Comment: Luz vaughan Type: BLOOD SPECIMENOrdering Facility: [facility] Address: [address] [place] [address] Result Comment: Breanne mated Glomerular Filtration Rate [...] GFR. Performed By: #### 2 777-1, 1757, 49971-7, ####ADKINS LABORATORYCLIA [id number] [place] [address] [place] Glucose [Mass/Vol] 66 mg/dL Low 74-99 [facility] Comment on above: Order Comment: Luz clement Type: BLOOD SPECIMENOrdering Facility: [facility] Address: [address] [place] [address] Result Comment: The [place] [employer] (ADA) provides guidance for cutoff [...] Standards of Medical Care in Diabetes 2016, [place] [employer]. Diabetes Care. 2016.39(Suppl 1). Performed By: #### 2 777-1, 1750-10, , ####ADKINS LABORATORYCLIA [id number] [place] [address] [place] Potassium [Moles/Vol] 4.5 mmol/L Normal 3.7-5.1 [facility] Comment on above: Order Comment: Luz men Type: BLOOD SPECIMENOrdering Facility: [facility] Address: [address] [place] [address] Performed By: #### 2 777-1, 1757, 58466-9, ####ADKINS LABORATORYCLIA [id number] [place] [address] [place] Sodium [Moles/Vol] 142 mmol/L Normal 136-144 [facility] Comment on above: Order Comment: Luz clement Type: BLOOD SPECIMENOrdering Facility: [facility] Address: [address] [place], [place] [address] Performed By: #### 2 777-1, 7, 30665-9, ####ADKINS LABORATORYCLIA [id number] [place] [address] [place] [facility] Urea nitrogen [Mass/Vol] 74 mg/dL High 9-24 [facility] Comment on above: Order Comment: Speci men Type: BLOOD SPECIMENOrdering Facility: [facility] Address: [address] [place] [address] Performed By: #### 2 777-1, 1750-10, 71172-7, ####ADKINS LABORATORYCLIA [id number] [address] [place] [facility] CBC W Auto Differential pane l (Bld)on 07-13-2024 Basophils (Bld) [#/Vol] 10*3/uL Normal <0.11 [facility] Comment on above: Order Comment: Speci men Type: BLOOD SPECIMENOrdering Facility: [facility] Address: [address] [place] [address] Performed By: #### 5 7021-8 ####ADKINS LABORATORYCLIA [id number] [address] [place] [facility] Basophils/100 WBC (Bld) 0.2 % Normal [facility] Comment on above: Order Comment: Speci men Type: BLOOD SPECIMENOrdering Facility: [facility] Address: [address] [place] [address] Performed By: #### 5 7021-8 ####ADKINS LABORATORYCLIA [id number] [address] Differential cell count method Nom (Bld) Auto Normal [facility] Comment on above: Order Comment: Speci men Type: BLOOD SPECIMENOrdering Facility: [facility] Address: [address] [place] [address] Performed By: #### 5 7021-8 ####ADKINS LABORATORYCLIA [id number] [place] [address] [place] Eosinophils (Bld) [#/Vol] 0.23 10*3/uL Normal <0.46 [facility] Comment on above: Order Comment: Speci men Type: BLOOD SPECIMENOrdering Facility: [facility] Address: [address] [place] [address] Performed By: #### 5 7021-8 ####ADKINS LABORATORYCLIA [id number] [place] [address] [place] Eosinophils/100 WBC (Bld) 4.9 % Normal [facility] Comment on above: Order Comment: Speci men Type: BLOOD SPECIMENOrdering Facility: [facility] Address: [address] [place] [address] Performed By: #### 5 7021-8 ####ADKINS LABORATORYCLIA [id number] [address] [place] Erythrocyte distribution width (RBC) [Ratio] 13.3 % Normal 11.5-15.0 [facility] Comment on above: Order Comment: Speci men Type: BLOOD SPECIMENOrdering Facility: [facility] Address: [address] [place] [address] Performed By: #### 5 7021-8 ####ADKINS LABORATORYCLIA [id number] [address] [place] Hematocrit (Bld) [Volume fraction] 30.5 % Low 39.0-51.0 [facility] Comment on above: Order Comment: Speci men Type: BLOOD SPECIMENOrdering Facility: [facility] Address: [address] [place] [address] Performed By: #### 5 7021-8 ####ADKINS LABORATORYCLIA [id number] [place] [address] [place] Hemoglobin (Bld) [Mass/Vol] 9.9 g/dL Low 13.0-17.0 [facility] Comment on above: Order Comment: Speci men Type: BLOOD SPECIMENOrdering Facility: [facility] Address: [address] [place] [address] Performed By: #### 5 7021-8 ####ADKINS LABORATORYCLIA [id number] [address] [place] Immature granulocytes (Bld) [#/Vol] 0.03 10*3/uL Normal <0.10 [facility] Comment on above: Order Comment: Speci men Type: BLOOD SPECIMENOrdering Facility: [facility] Address: [address] [place] [address] Performed By: #### 5 7021-8 ####ADKINS LABORATORYCLIA [id number] [address] [place] Immature granulocytes/100 WBC (Bld) 0.6 % Normal [facility] Comment on above: Order Comment: Speci men Type: BLOOD SPECIMENOrdering Facility: [facility] Address: [address] [place] [address] Performed By: #### 5 7021-8 ####ADKINS LABORATORYCLIA [id number] [place] [address] [place] Lymphocytes (Bld) [#/Vol] 1.33 10*3/uL Normal 1.00-4.00 [facility] Comment on above: Order Comment: Speci men Type: BLOOD SPECIMENOrdering Facility: [facility] Address: [address] [place] [address] Performed By: #### 5 7021-8 ####ADKINS LABORATORYCLIA [id number] [address] Lymphocytes/100 WBC (Bld) 28.5 % Normal [facility] Comment on above: Order Comment: Speci men Type: BLOOD SPECIMENOrdering Facility: [facility] Address: [address] [place] [address] Performed By: #### 5 7021-8 ####ADKINS LABORATORYCLIA [id number] [place] [address] [place] MCH (RBC) [Entitic mass] 28.4 pg Normal 26.0-34.0 [facility] Comment on above: Order Comment: Speci men Type: BLOOD SPECIMENOrdering Facility: [facility] Address: [address] [place] [address] Performed By: #### 5 7021-8 ####ADKINS LABORATORYCLIA [id number] [address] [place] MCHC (RBC) [Mass/Vol] 32.5 g/dL Normal 30.5-36.0 [facility] Comment on above: Order Comment: Speci men Type: BLOOD SPECIMENOrdering Facility: [facility] Address: [address] [place] [address] Performed By: #### 5 7021-8 ####ADKINS LABORATORYCLIA [id number] [place] [address] [place] MCV (RBC) [Entitic vol] 87.6 fL Normal 80.0-100.0 [facility] Comment on above: Order Comment: Speci men Type: BLOOD SPECIMENOrdering Facility: [facility] Address: [address] [place] [address] Performed By: #### 5 7021-8 ####ADKINS LABORATORYCLIA [id number] [place] [address] [place] Monocytes (Bld) [#/Vol] 0.54 10*3/uL Normal <0.87 [facility] Comment on above: Order Comment: Speci men Type: BLOOD SPECIMENOrdering Facility: [facility] Address: [address] [place] [address] Performed By: #### 5 7021-8 ####ADKINS LABORATORYCLIA [id number] [place] [address] [place] Monocytes/100 WBC (Bld) 11.6 % Normal [facility] Comment on above: Order Comment: Speci men Type: BLOOD SPECIMENOrdering Facility: [facility] Address: [address] [place] [address] Performed By: #### 5 7021-8 ####ADKINS LABORATORYCLIA [id number] [place] [address] [place] Neutrophils (Bld) [#/Vol] 2.53 10*3/uL Normal 1.45-7.50 [facility] Comment on above: Order Comment: Speci men Type: BLOOD SPECIMENOrdering Facility: [facility] Address: [address] [place] [address] Performed By: #### 5 7021-8 ####ADKINS LABORATORYCLIA [id number] [place] [address] [place] Neutrophils/100 WBC (Bld) 54.2 % Normal [facility] Comment on above: Order Comment: Speci men Type: BLOOD SPECIMENOrdering Facility: [facility] Address: [address] [place] [address] Performed By: #### 5 7021-8 ####ADKINS LABORATORYCLIA [id number] [place] [address] [place] Nucleated RBC (Bld) [#/Vol] 10*3/uL Normal <0.01 [facility] Comment on above: Order Comment: Speci men Type: BLOOD SPECIMENOrdering Facility: [facility] Address: [address] [place] [address] Performed By: #### 5 7021-8 ####ADKINS LABORATORYCLIA [id number] [place] [address] [place] Nucleated RBC/100 WBC (Bld) [Ratio] 0.0 /100 WBC Normal [facility] Comment on above: Order Comment: Speci men Type: BLOOD SPECIMENOrdering Facility: [facility] Address: [address] [place] [address] Performed By: #### 5 7021-8 ####ADKINS LABORATORYCLIA [id number] [place] [address] [place] Platelet mean volume (Bld) [Entitic vol] 9.3 fL Normal 9.0-12.7 [facility] Comment on above: Order Comment: Speci men Type: BLOOD SPECIMENOrdering Facility: [facility] Address: [address] [place] [address] Performed By: #### 5 7021-8 ####ADKINS LABORATORYCLIA [id number] [place] [address] [place] Platelets (Bld) [#/Vol] 225 10*3/uL Normal 150-400 [facility] Comment on above: Order Comment: Speci men Type: BLOOD SPECIMENOrdering Facility: [facility] Address: [address] [place] [address] Performed By: #### 5 7021-8 ####ADKINS LABORATORYCLIA [id number] [place] [address] [place] RBC (Bld) [#/Vol] 3.48 10*6/uL Low 4.20-6.00 [facility] Comment on above: Order Comment: Speci men Type: BLOOD SPECIMENOrdering Facility: [facility] Address: [facility] [place] [address] Performed By: #### 5 7021-8 ####ADKINS LABORATORYCLIA [id number] [place] [address] [place] WBC (Bld) [#/Vol] 4.67 10*3/uL Normal 3.70-11.00 [facility] Comment on above: Order Comment: Speci men Type: BLOOD SPECIMENOrdering Facility: [facility] Address: [address] [place] [address] Performed By: #### 5 7021-8 ####ADKINS LABORATORYCLIA [id number] [place] [id number] [facility] CONSULT PROGon 07-13-2024 CONSULT PROG Normal [facility] Magnesium SerPl-mCncon 07-13 Magnesium [Mass/Vol] 1.8 mg/dL Normal 1.7-2.3 [facility] Comment on above: Order Comment: Speci men Type: BLOOD SPECIMENOrdering Facility: [facility] Address: [address] [place], [place] [address] [address] Performed By: #### 2 777-1, 175-7, 18467-3, ####SEBRING LABORATORYCLIA [id number] [place] [id number] [facility] [place] Phosphate SerPl-mCncon 07-13 Phosphate [Mass/Vol] 6.5 mg/dL High 2.7-4.8 [facility] Comment on above: Order Comment: Speci men Type: BLOOD SPECIMENOrdering Facility: [facility] Address: [address] [place], [place] [address] [address] Performed By: #### 2 777-1, 175-7, 02181-8, ####SEBRING LABORATORYCLIA [id number] [place] [address] [place] Basic metabolic 2000 panelon 07-12-2024 Anion gap [Moles/Vol] 13 mmol/L Normal 8-15 [facility] Comment on above: Order Comment: Speci men Type: BLOOD SPECIMENOrdering Facility: [facility] Address: [address] [place] [address] Performed By: #### 2 4321-2 ####ADKINS LABORATORYCLIA [id number] [place] [address] [place] Calcium [Mass/Vol] 8.9 mg/dL Normal 8.5-10.2 [facility] Comment on above: Order Comment: Speci men Type: BLOOD SPECIMENOrdering Facility: [facility] Address: [address] [place] [address] Performed By: #### 2 4321-2 ####ADKINS LABORATORYCLIA [id number] [place] [address] [place] Chloride [Moles/Vol] 108 mmol/L High 98-107 [facility] Comment on above: Order Comment: Speci men Type: BLOOD SPECIMENOrdering Facility: [facility] Address: [address] [place] [address] Performed By: #### 2 4321-2 ####ADKINS LABORATORYCLIA [id number] [place] [address] [place] CO2 [Moles/Vol] 22 mmol/L Normal 22-30 [facility] Comment on above: Order Comment: Speci men Type: BLOOD SPECIMENOrdering Facility: [facility] Address: [address] [place] [address] Performed By: #### 2 4321-2 ####ADKINS LABORATORYCLIA [id number] [place] [address] [place] Creatinine [Mass/Vol] 5.23 mg/dL High 0.73-1.22 [facility] Comment on above: Order Comment: Speci men Type: BLOOD SPECIMENOrdering Facility: [facility] Address: [address] [place] [address] Performed By: #### 2 4321-2 ####ADKINS LABORATORYCLIA [id number] [place] [address] [place] Creatinine and Glomerular filtration rate.predicted panel (S/P/Bld) 12 mL/min/1.73m??? Low >=60 [facility] Comment on above: Order Comment: Luz vaughan Type: BLOOD SPECIMENOrdering Facility: [facility] Address: [address] [place] [address] Result Comment: Breanne mated Glomerular Filtration Rate [...] actual GFR. Performed By: #### 2 4321-2 ####SEBRING LABORATORYCLIA [id number] [place] [id number] [place] Glucose [Mass/Vol] 61 mg/dL Low 74-99 [facility] Comment on above: Order Comment: Luz vaughan Type: BLOOD SPECIMENOrdering Facility: [facility] Address: [address] [place] [address] Result Comment: The [place] [employer] (ADA) provides guidance for cutoff [...] Standards of Medical Care in Diabetes 2016, [place] [employer]. Diabetes Care. 2016.39(Suppl 1). Performed By: #### 2 4321-2 ####SEBRING LABORATORYCLIA [id number] [place] [address] [place] Potassium [Moles/Vol] 5.0 mmol/L Normal 3.7-5.1 [facility] Comment on above: Order Comment: Luz vaughan Type: BLOOD SPECIMENOrdering Facility: [facility] Address: [address] [place] [id number] Performed By: #### 2 4321-2 ####ADKINS LABORATORYCLIA [id number] [place] [address] [place] Sodium [Moles/Vol] 143 mmol/L Normal 136-144 [facility] Comment on above: Order Comment: Speci men Type: BLOOD SPECIMENOrdering Facility: [facility] Address: [address] [place] [address] Performed By: #### 2 4321-2 ####ADKINS LABORATORYCLIA [id number] [place] [address] [place] Urea nitrogen [Mass/Vol] 77 mg/dL High 9-24 [facility] Comment on above: Order Comment: Speci men Type: BLOOD SPECIMENOrdering Facility: [facility] Address: [address] [place] [address] Performed By: #### 2 4321-2 ####ADKINS LABORATORYCLIA [id number] [address] OF [facility] CASE MANAGEMon 07-12-2024 CASE MANAGEM Normal [facility] CBC panel Auto (Bld)on 07-12 Erythrocyte distribution width (RBC) [Ratio] 13.2 % Normal 11.5-15.0 [facility] Comment on above: Order Comment: Speci men Type: BLOOD SPECIMENOrdering Facility: [facility] Address: [address] [place] [address] Performed By: #### 5 8410-2 ####[facility] LABORATORYCLIA [id number] [address] [place] Hematocrit (Bld) [Volume fraction] 31.8 % Low 39.0-51.0 [facility] Comment on above: Order Comment: Speci men Type: BLOOD SPECIMENOrdering Facility: [facility] Address: [address] [place] [address] Performed By: #### 5 8410-2 ####[facility] LABORATORYCLIA [id number] [address] [place] Hemoglobin (Bld) [Mass/Vol] 10.4 g/dL Low 13.0-17.0 [facility] Comment on above: Order Comment: Speci men Type: BLOOD SPECIMENOrdering Facility: [facility] Address: [address] [place] [address] Performed By: #### 5 8410-2 ####[facility] LABORATORYCLIA [id number] [address] MCH (RBC) [Entitic mass] 28.7 pg Normal 26.0-34.0 [facility] Comment on above: Order Comment: Speci men Type: BLOOD SPECIMENOrdering Facility: [facility] Address: [address] [place] [address] Performed By: #### 5 8410-2 ####[facility]KINS LABORATORYCLIA [id number] [address] MCHC (RBC) [Mass/Vol] 32.7 g/dL Normal 30.5-36.0 [facility] Comment on above: Order Comment: Speci men Type: BLOOD SPECIMENOrdering Facility: [facility] Address: [address] [place] [address] Performed By: #### 5 8410-2 ####[facility] LABORATORYCLIA [id number] [address] MCV (RBC) [Entitic vol] 87.8 fL Normal 80.0-100.0 [facility] Comment on above: Order Comment: Speci men Type: BLOOD SPECIMENOrdering Facility: [facility] Address: [address] [place] [address] Performed By: #### 5 8410-2 ####[facility] LABORATORYCLIA [id number] [address] Nucleated RBC (Bld) [#/Vol] 10*3/uL Normal <0.01 [facility] Comment on above: Order Comment: Speci men Type: BLOOD SPECIMENOrdering Facility: [facility] Address: [address] [place] [address] Performed By: #### 5 8410-2 ####ADK[facility] LABORATORYCLIA [id number] [address] Platelet mean volume (Bld) [Entitic vol] 9.2 fL Normal 9.0-12.7 [facility] Comment on above: Order Comment: Speci men Type: BLOOD SPECIMENOrdering Facility: [facility] Address: [address] [place] [address] Performed By: #### 5 8410-2 ####ADK[facility] LABORATORYCLIA [id number] [address] Platelets (Bld) [#/Vol] 227 10*3/uL Normal 150-400 [facility] Comment on above: Order Comment: Speci men Type: BLOOD SPECIMENOrdering Facility: [facility] Address: [address] [place] [address] Performed By: #### 5 8410-2 ####ADK[facility] LABORATORYCLIA [id number] [place] [address] [place] RBC (Bld) [#/Vol] 3.62 10*6/uL Low 4.20-6.00 [facility] Comment on above: Order Comment: Speci men Type: BLOOD SPECIMENOrdering Facility: [facility] Address: [address] [place] [address] Performed By: #### 5 8410-2 ####[facility] LABORATORYCLIA [id number] [address] [place] WBC (Bld) [#/Vol] 5.32 10*3/uL Normal 3.70-11.00 [facility] Comment on above: Order Comment: Speci men Type: BLOOD SPECIMENOrdering Facility: [facility] Address: [address] [place] [address] Performed By: #### 5 8410-2 ####ADKINS LABORATORYCLIA [id number] [address] [place] CNPNon 07-12-2024 CNPN Telephone (HCSIND) -- JOSÉ MANUEL ASHTON ([id number]) 1960 [address] [facility] Date Time Provider Department 07/12/24 JUDITH CAT HCSIND During your visit today, we recorded the following information about you: Judith Cat LPN 07/12/2024 10:24 AM Signed Bunny Scott MD Please advise if you are agreeable to signing and following for [facility] services? Our Clinicians will be sending the Plan of Care to you for review and approval. They will reach out for any appropriate orders required to provide home care services for the patient. We are not able to initiate HHC services without a following provider. Home care clinicians may also obtain orders from [facility] Providers Thank you and we would [...] of r (more content not included)... Normal [facility] CONSULT PROGon 07-12-2024 CONSULT PROG [facility] CT BIOPSY RENALon 07-12-2024 CT BIOPSY RENAL Normal [facility] PT EDon 07-12-2024 PT ED [facility] Pathology biopsy report Kade (Tiss)on 07-12-2024 ADDENDUM 1: [facility] Comment on above: Order Comment: Speci men Type: TISSUE SPECIMENOrdering Facility: [facility] Address: [address] [place] [address] Result Comment: A Co cano red stain for amyloid is negative. The diagnosis is unchanged.Addendum electronically signed by Leida Jones MD on 07/17/2024 at 1643 EDT Performed By: #### 6 6121-5 ####[facility] LABIA [id number] [address] [place] AP DISCLAIMER [facility] Comment on above: Order Comment: Speci men Type: TISSUE SPECIMENOrdering Facility: [facility] Address: [address] [place] [address] Result Comment: Naya oliva Developed Test (LDT) Disclaimer:Performance characteristics of immunohistochemical, immunofluorescent, and chromogenic in-situ hybridization tests have been determined by the performing laboratory within [facility]'s Antoine Mendez [facility] Satelliteravi Pathology and Laboratory Medicine Department ([facility], [facility], [facility], [facility], [facility], [facility], or [facility]) in a manner consistent with CLIA requirements. One or more of these tests may not have been cleared or approved by the FDA. RT-PLM is regulated under CLIA as qualified to perform high-complexity testing. These tests are used for clinical purposes. These should not be regarded as investigational or for research. Positive and negative controls stain appropriately. Performed By: #### 6 6121-5 ####[facility] LABIA [id number] [place] [address] [place] CASE REPORT Normal [facility] Comment on above: Order Comment: Speci men Type: TISSUE SPECIMENOrdering Facility: [facility] Address: [address] [place] [address] Result Comment: [facility] Pathology Report Case: [id number] Provider: Luis Carlos Garcia MD Collected: 07/12/2024 02:38 PMOrdering Location: [facility] Three Received: 07/12/2024 02:55 PM SouthPathologist: Leida Jones MDSpecimen: Kidney, Right, Biopsy Performed By: #### 6 6121-5 ####[facility] LABIA [id number] [place] [address] [place] CLINICAL HISTORY 63-year-old man with history of diabetes, presenting with TARYN on CKD. Creatinine 5.71, albumin 3.2, UA protein 3+/blood 1+, UPCR 7.24, JAMARCUS negative, C3/C4 within normal limits, ANCA negative, kappa lambda ratio within normal limits. [facility] Comment on above: Order Comment: Speci men Type: TISSUE SPECIMENOrdering Facility: [facility] Address: [address] [place] [address] Performed By: #### 6 6121-5 ####[facility] LABCLIA [id number] [address] DIAGNOSIS COMMENT [facility] Comment on above: Order Comment: Speci clement Type: TISSUE SPECIMENOrdering Facility: [facility] Address: [address] [place] [address] Performed By: #### 6 6121-5 ####[facility] LABCLIA [id number] [address] FINAL DIAGNOSIS [facility] Comment on above: Order Comment: Speci clement Type: TISSUE SPECIMENOrdering Facility: [facility] Address: [address] [place] [address] Result Comment: Right Joaquín, Biopsy:- 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 See comment.- Tubular atrophy and interstitial fibrosis, severe.- Arteriosclerosis, moderate, and arteriolosclerosis, severe. at 1508 EDT Performed By: #### 6 6121-5 ####[facility] LABCLIA [id number] [address] FINAL PERFORMING LAB [facility] Comment on above: Order Comment: [facility] Type: TISSUE SPECIMENOrdering Facility: [facility] Address: [address] [place] [address] Result Comment: Diag nostic interpretation performed at: [facility], [address] [place] [address], [facility] [place] [address] CLIA# [id number] Director: Teja Pedraza MD Performed By: #### 6 6121-5 ####[facility] [id number] [address] GROSS DESCRIPTION [facility] Comment on above: Order Comment: Speci clement Type: TISSUE SPECIMENOrdering Facility: [facility] Address: [address] [place] [address] Result Comment: Tomás Emanuel ross, Right, BiopsyReceived fresh on saline moistened Telfa gauze are two segments of cylindrical flores, soft tissue aggregating to 2.3 x 0.2 x 0.1 cm. A portion is frozen and kept frozen for direct immunofluorescence. A portion is submitted for electron microscopy. A portion is submitted in formalin for light microscopy in cassette A2.Gross examination performed at [facility], [address] [place], [place] [address]AMS July 12, 2024 7:09 PM Performed By: #### 6 6121-5 ####[facility] [id number] [address] MICROSCOPIC DESCRIPTION [facility] Comment on above: Order Comment: Brooksi clement Type: TISSUE SPECIMENOrdering Facility: [facility] Address: [address] [place] [address] Result Comment: Sect ions are stained for [...] C1q, and are negative for other immunoreactants. [place] and lambda stain equally throughout the tubulointerstitium [...] the tubulointerstitium. Performed By: #### 6 6121-5 ####[facility] LABIA [id number] [address] [place] ALBUMIN/CREATININE RATIO, UR INEon 07-11-2024 Albumin DL <= 20 mg/L (U) [Mass/Vol] 1966.9 mg/L Normal [facility] Comment on above: Order Comment: Speci men Type: URINE SPECIMENOrdering Facility: [facility] Address: [address] [place] [address] Performed By: #### 3 5677-4, 2890-2, UACR, 52255-9, 16777-1 ####[facility] [id number] [place] [address] [place] Albumin/Creatinine (U) [Mass ratio] 4276 mg/g High <30 [facility] Comment on above: Order Comment: Speci men Type: URINE SPECIMENOrdering Facility: [facility] Address: [address] [place] [address] Result Comment: Adul t Male and Female Nephrotic Criteria:<30 mg/g is considered normal to mildly qaxjtmftk30-688 mg/g is considered moderately increased>300 mg/g is considered severely increasedKDIGO. (2013). KDIGO 2012 Clinical Practice Guideline for the Evaluation and Management of Chronic Kidney Disease. Official Journal of the International Society of Nephrology, 3(1), 1-150. Performed By: #### 3 5677-4, 2890-2, UACR, 15538-7, 79507-8 ####[facility] LABIA [id number] [place] [address] [place] JAMARCUS BY IFA SCREENon 07-12-19 Nuclear Ab Ql (S) Negative Normal Negative [facility] Comment on above: Order Comment: Speci men Type: BLOOD SPECIMENOrdering Facility: [facility] Address: [address] [place] [address] Result Comment: Anti -nuclear antibody test is used as an aid in diagnosis of systemic autoimmune diseases. Where positive and clinically warranted, follow-up using disease-specific testing is recommended. Low positive titers are not uncommon with advanced age, certain chronic infections, and malignancies among others.Test methodology: Indirect fluorescence immunoassay (IFA) using HEp-2 cells. Performed By: #### A NAIFS, ANCA ####[facility] LABCLIA [id number] [place] [address] [place] ANTI NEUTRO CYTO ABon 2024 INTERPRETATION (ANCA) Equivocal staining seen on the ethanol (indirect immunofluorescence screen) slide but negative results on follow up confirmatory testing. Anti-nuclear antibody test may be considered. Clinical correlation is required. Normal [facility] Comment on above: Order Comment: Speci clement Type: BLOOD SPECIMENOrdering Facility: [facility] Address: [address] [place] [address] Performed By: #### A NAIFS, ANCA ####[facility] LABCLIA [id number] [place] [address] [place] Myeloperoxidase Ab Qn (S) <0.2 Normal <1.0 [facility] Comment on above: Order Comment: Speci men Type: BLOOD SPECIMENOrdering Facility: [facility] Address: [address] [place] [address] Performed By: #### A NAIFS, ANCA ####[facility] LABCLIA [id number] [place] [address] [place] Neutrophil cytoplasmic Ab.classic IF Ql (S) Negative Normal Negative [facility] Comment on above: Order Comment: Speci men Type: BLOOD SPECIMENOrdering Facility: [facility] Address: [address] [place] [address] Performed By: #### A NAIFS, ANCA ####[facility] LABCLIA [id number] [place] [address] [place] Neutrophil cytoplasmic Ab.perinuclear IF Ql (S) Negative Normal Negative [facility] Comment on above: Order Comment: Speci men Type: BLOOD SPECIMENOrdering Facility: [facility] Address: [address] [place] [address] Performed By: #### A NAIFS, ANCA ####[facility] LABCLIA [id number] [place] [address] [place] Proteinase 3 Ab Qn (S) <0.2 Normal <1.0 [facility] Comment on above: Order Comment: Speci men Type: BLOOD SPECIMENOrdering Facility: [facility] Address: [address] [place] [address] Performed By: #### A NAIFS, ANCA ####[facility] LABCLIA [id number] [address] [place] STAFF REVIEW (ANCA) Reviewed by Moe Bailey, Ph.D D([facility]) Normal [facility] Comment on above: Order Comment: Speci men Type: BLOOD SPECIMENOrdering Facility: [facility] Address: [address] [place] [address] Performed By: #### A NAIFS, ANCA ####[facility] LABCLIA [id number] [place] [address] [place] Basic metabolic 2000 panelon 07-11-2024 Anion gap [Moles/Vol] 14 mmol/L Normal 8-15 [facility] Comment on above: Order Comment: Speci men Type: BLOOD SPECIMENOrdering Facility: [facility] Address: [address] [place] [address] Performed By: #### 2 4321-2 ####[facility] LABORATORYCLIA [id number] [place] [address] [place] Calcium [Mass/Vol] 8.9 mg/dL Normal 8.5-10.2 [facility] Comment on above: Order Comment: Speci men Type: BLOOD SPECIMENOrdering Facility: [facility] Address: [address] [place] [address] Performed By: #### 2 4321-2 ####[facility] LABORATORYCLIA [id number] [address] [place] Chloride [Moles/Vol] 109 mmol/L High 98-107 [facility] Comment on above: Order Comment: Speci men Type: BLOOD SPECIMENOrdering Facility: [facility] Address: [address] [place] [address] Performed By: #### 2 4321-2 ####[facility] LABORATORYCLIA [id number] [place] [address] [place] CO2 [Moles/Vol] 22 mmol/L Normal 22-30 [facility] Comment on above: Order Comment: Speci men Type: BLOOD SPECIMENOrdering Facility: [facility] Address: [address] [place] [address] Performed By: #### 2 4321-2 ####[facility] LABORATORYCLIA [id number] [place] [address] [place] Creatinine [Mass/Vol] 6.10 mg/dL High 0.73-1.22 [facility] Comment on above: Order Comment: Speci men Type: BLOOD SPECIMENOrdering Facility: [facility] Address: [address] [place] [address] Performed By: #### 2 4321-2 ####[facility] LABORATORYCLIA [id number] [address] Creatinine and Glomerular filtration rate.predicted panel (S/P/Bld) 10 mL/min/1.73m??? Low >=60 [facility] Comment on above: Order Comment: Speci men Type: BLOOD SPECIMENOrdering Facility: [facility] Address: [address] [place] [address] Result Comment: Breanne mated Glomerular Filtration Rate [...] Performed By: #### 2 4321-2 ####[facility] LABORATORYCLIA [id number] [place] [address] [place] Glucose [Mass/Vol] 128 mg/dL High 74-99 [facility] Comment on above: Order Comment: Luz vaughan Type: BLOOD SPECIMENOrdering Facility: [facility] Address: [address] [place] [address] Result Comment: The [place] Diabetes Association (ADA) provides guidance for cutoff [...] Standards of Medical Care in Diabetes 2016, [place] [employer]. Diabetes Care. 2016.39(Suppl 1). Performed By: #### 2 4321-2 ####[facility] LABORATORYCLIA [id number] [place] [address] [place] Potassium [Moles/Vol] 5.2 mmol/L High 3.7-5.1 [facility] Comment on above: Order Comment: Luz vaughan Type: BLOOD SPECIMENOrdering Facility: [facility] Address: [address] [place] [address] Performed By: #### 2 4321-2 ####[facility] LABORATORYCLIA [id number] [place] [id number] [place] Sodium [Moles/Vol] 145 mmol/L High 136-144 [facility] Comment on above: Order Comment: Luz vaughan Type: BLOOD SPECIMENOrdering Facility: [facility] Address: [address] [place] [address] Performed By: #### 2 4321-2 ####[facility] LABORATORYCLIA [id number] [place] [address] [place] Urea nitrogen [Mass/Vol] 85 mg/dL High 9-24 [facility] Comment on above: Order Comment: Speci men Type: BLOOD SPECIMENOrdering Facility: [facility] Address: [address] [place] [address] Performed By: #### 2 4321-2 ####[facility] LABORATORYCLIA [id number] [place] [id number] [place] C3 SerPl-mCncon 07-11-2024 Complement C3 [Mass/Vol] 139 mg/dL Normal 86-166 [facility] Comment on above: Order Comment: Speci men Type: BLOOD SPECIMENOrdering Facility: [facility] Address: [address] [place] [address] Performed By: #### 4 498-2, 4485-9, 2885-2 ####[facility] LABCLIA [id number] [place] [address] [place] C4 SerPl-mCncon 07-11-2024 Complement C4 [Mass/Vol] 21 mg/dL Normal 13-46 [facility] Comment on above: Order Comment: Speci men Type: BLOOD SPECIMENOrdering Facility: [facility] Address: [address] [place] [address] Performed By: #### 4 498-2, 4485-9, 2885-2 ####[facility] LABCLIA [id number] [place] [id number] [place] CASE MGT INIT ASSESon 2024 CASE MGT INIT ASS [facility] CBC panel Auto (Bld)on 07-11 Erythrocyte distribution width (RBC) [Ratio] 13.2 % Normal 11.5-15.0 [facility] Comment on above: Order Comment: Speci men Type: BLOOD SPECIMENOrdering Facility: [facility] Address: [address] [place] [address] Performed By: #### 5 8410-2 ####[facility] LABORATORYCLIA [id number] [address] Hematocrit (Bld) [Volume fraction] 32.8 % Low 39.0-51.0 [facility] Comment on above: Order Comment: Speci men Type: BLOOD SPECIMENOrdering Facility: [facility] Address: [address] [place] [address] Performed By: #### 5 8410-2 ####[facility] LABORATORYCLIA [id number] [address] Hemoglobin (Bld) [Mass/Vol] 10.8 g/dL Low 13.0-17.0 [facility] Comment on above: Order Comment: Speci men Type: BLOOD SPECIMENOrdering Facility: [facility] Address: [address] [place] [address] Performed By: #### 5 8410-2 ####[facility] LABORATORYCLIA [id number] [address] MCH (RBC) [Entitic mass] 28.9 pg Normal 26.0-34.0 [facility] Comment on above: Order Comment: Speci men Type: BLOOD SPECIMENOrdering Facility: [facility] Address: [address] [place] [address] Performed By: #### 5 8410-2 ####[facility] LABORATORYCLIA [id number] [address] MCHC (RBC) [Mass/Vol] 32.9 g/dL Normal 30.5-36.0 [facility] Comment on above: Order Comment: Speci men Type: BLOOD SPECIMENOrdering Facility: [facility] Address: [address] [place] [address] Performed By: #### 5 8410-2 ####[facility] LABORATORYCLIA [id number] [address] MCV (RBC) [Entitic vol] 87.7 fL Normal 80.0-100.0 [facility] Comment on above: Order Comment: Speci men Type: BLOOD SPECIMENOrdering Facility: [facility] Address: [address] [place] [address] Performed By: #### 5 8410-2 ####[facility] LABORATORYCLIA [id number] [place] [id number] [place] Nucleated RBC (Bld) [#/Vol] 10*3/uL Normal <0.01 [facility] Comment on above: Order Comment: Speci men Type: BLOOD SPECIMENOrdering Facility: [facility] Address: [address] [place] [address] Performed By: #### 5 8410-2 ####[facility] LABORATORYCLIA [id number] [place] [address] [place] Platelet mean volume (Bld) [Entitic vol] 9.2 fL Normal 9.0-12.7 [facility] Comment on above: Order Comment: Speci men Type: BLOOD SPECIMENOrdering Facility: [facility] Address: [address] [place] [address] Performed By: #### 5 8410-2 ####[facility] LABORATORYCLIA [id number] [place] [address] [place] Platelets (Bld) [#/Vol] 248 10*3/uL Normal 150-400 [facility] Comment on above: Order Comment: Speci men Type: BLOOD SPECIMENOrdering Facility: [facility] Address: [address] [place] [address] Performed By: #### 5 8410-2 ####[facility] LABORATORYCLIA [id number] [place] [address] [place] RBC (Bld) [#/Vol] 3.74 10*6/uL Low 4.20-6.00 [facility] Comment on above: Order Comment: Speci men Type: BLOOD SPECIMENOrdering Facility: [facility] Address: [address] [place] [address] Performed By: #### 5 8410-2 ####[facility] LABORATORYCLIA [id number] [address] [place] WBC (Bld) [#/Vol] 5.12 10*3/uL Normal 3.70-11.00 [facility] Comment on above: Order Comment: Speci men Type: BLOOD SPECIMENOrdering Facility: [facility] Address: [address] [place] [address] Performed By: #### 5 8410-2 ####[facility] LABORATORYCLIA [id number] [place] [address] [place] CONSULTon 07-11-2024 CONSULT Normal [facility] Creat ?Tm Ur-mCncon 07-12-19 25 Creatinine (U) [Mass/Vol] 46.0 mg/dL Normal 20.0-300.0 [facility] Comment on above: Order Comment: Speci men Type: URINE SPECIMENOrdering Facility: [facility] Address: [address] [place] [address] Performed By: #### 3 5677-4, 2890-2, [facility], 94559-7, 17088-0 ####[facility] LABCLIA [id number] [place] [address] [place] DNA ANTIBODY DS BLDon 2024 DNA ANTIBODY 9 IU/mL Normal <=200 [facility] Comment on above: Order Comment: Speci men Type: BLOOD SPECIMENOrdering Facility: [facility] Address: [address] [place] [address] Result Comment: Nega tive: <200 IU/mLEquivocal: 201-300 IU/mLModerate Positive: 301-800 IU/mLStrong Positive: >801 IU/mL Performed By: #### D NAAB ####[facility] LABCLIA [id number] [place] [address] [place] DNA ANTIBODY QUALITATIVE INTERPRETATION Negative Normal Negative [facility] Comment on above: Order Comment: Speci men Type: BLOOD SPECIMENOrdering Facility: [facility] Address: [address] [place] [address] Performed By: #### D NAAB ####[facility] LABCLIA [id number] [place] [address] [place] GBM IGG AUTOANTIBODYon 07-11 GBM IGG AB, (BEAD) 0 AU/mL Normal 0-19 [facility] Comment on above: Order Comment: Speci men Type: BLOOD SPECIMENOrdering Facility: [facility] Address: [address] [place] [address] Result Comment: INTE RPRETIVE INFORMATION: GBM Ab, [...] confirmation and assessment of renal prognosis.Performed By: [facility] [place] [address] [id number] Director: Derian Moreno MD, PhDCLIA Number: [id number] Performed By: #### G BM ####[facility]ENTERIA [id number] [place] [address] HISTORY PHYSICALon HISTORY PHYSICAL Normal [facility] KAPPA/MEDELLIN,FREE,SERon 2024 Immunoglobulin light chains.kappa.free (S) [Mass/Vol] 81.2 mg/L High 3.3-19.4 [facility] Comment on above: Order Comment: Speci men Type: BLOOD SPECIMENOrdering Facility: [facility] Address: [address] [place] [address] Result Comment: Rare ly, increased serum free light chains levels may not be detected or accurately quantified due to prozone phenomenon or in high viscosity samples using this immunoturbidimetric assay. Correlation with other laboratory results and clinical findings is recommended.The [place] Free Light Chain was performed using the Binding Site Optilite immunoturbidimetric method. Result obtained with different assay methods or kits cannot be used interchangeably. Performed By: #### K LFRS ####[facility] LABCLIA [id number] [place] [address] [place] Immunoglobulin light chains.kappa/Immunogl obulin light chains.lambda (S) [Mass ratio] 1.56 Normal 0.26-1.65 [facility] Comment on above: Order Comment: Speci men Type: BLOOD SPECIMENOrdering Facility: [facility] Address: [address] [place] [address] Performed By: #### K LFRS ####[facility] LABIA [id number] [address] [place] Immunoglobulin light chains.lambda.free [Mass/Vol] 52.1 mg/L High 5.7-26.3 [facility] Comment on above: Order Comment: Speci men Type: BLOOD SPECIMENOrdering Facility: [facility] Address: [address] [place] [address] Result Comment: Rare ly, increased serum free [...] used interchangeably. Performed By: #### K LFRS ####[facility] LABIA [id number] [place] [address] [place] Osmolality Uron 07-11-2024 Osmolality (U) [Osmolality] 398 mosm/kg Normal 50-1200 [facility] Comment on above: Order Comment: Speci men Type: URINE SPECIMENOrdering Facility: [facility] Address: [address] [place] [address] Performed By: #### 2 695-5 ####[facility] LABIA [id number] [place] [address] [place] PLA2R, IMMUNOFLUORESCENCE, S (REFLEX ONLY)on 07-11-2024 PLA2R, IMMUNOFLUORESCENCE, S Negative Normal Negative [facility] Comment on above: Order Comment: Speci men Type: BLOOD SPECIMENOrdering Facility: [facility] Address: [address] [place] [address] Result Comment: PLA2 R is Negative ADDITIONAL INFORMATION This test was developed and its performance characteristicsdetermined by [facility] in a manner consistent withCLIA requirements. This test has not been cleared orapproved by the U.S. Food and Drug Administration.Test Performed by:[address] Director: Soy Loomis Ph.D.; CLIA# [id number] Performed By: #### P MNDCS, PLA2RI, THSD7A ####[facility] LABCLIA [id number] [place] [address] PRIMARY MEMBRANEOUS NEPHROPA THY DIAGNOSTIC CASCADE, SERon 07-11-2024 PHOSPHOLIPASE A2 RECEPTOR, FABIENNE, S <2 Normal [facility] Comment on above: Order Comment: Luz vaughan Type: BLOOD SPECIMENOrdering Facility: [facility] Address: [address] [place] [address] Result Comment: ---- REFERENCE VALUE <14 RU/mL: Negative>=14 to <20 RU/mL: Borderline>=20 RU/mL: PositiveTest Performed by:[address] Director: Soy Loomis Ph.D.; CLIA# [id number] Performed By: #### P MNDCS, PLA2RI, THSD7A ####[facility] LABCLIA [id number] [place] [address] PROTEIN ELECTROPHORESIS SERU M WITH TATIANA (P)on 07-11-2024 Albumin [Mass/Vol] 3.83 g/dL Normal 3.43-5.41 [facility] Comment on above: Order Comment: Luz vaughan Type: BLOOD SPECIMENOrdering Facility: [facility] Address: [address] [place] [address] Performed By: #### L [id number] ####[facility] LABIA [id number] [place] [address] [place] Alpha 1 globulin Elph [Mass/Vol] 0.27 g/dL Normal 0.18-0.43 [facility] Comment on above: Order Comment: Speci men Type: BLOOD SPECIMENOrdering Facility: [facility] Address: [address] [place] [address] Performed By: #### L [id number] ####[facility] LABIA [id number] [place] [address] [place] Alpha 2 globulin Elph [Mass/Vol] 0.92 g/dL Normal 0.42-0.98 [facility] Comment on above: Order Comment: Speci men Type: BLOOD SPECIMENOrdering Facility: [facility] Address: [address] [place] [address] Performed By: #### L [id number] ####[facility] [id number] [place] [address] [place] Beta globulin Elph [Mass/Vol] 0.69 g/dL Normal 0.61-1.17 [facility] Comment on above: Order Comment: Speci men Type: BLOOD SPECIMENOrdering Facility: [facility] Address: [address] [place] [address] Performed By: #### L [id number] ####[facility] LABIA [id number] [place] [address] [place] COMMENT (SERUM PROT ELECTRO) Monoclonal Protein analysis (immunofixation) is not indicated. Normal [facility] Comment on above: Order Comment: Speci men Type: BLOOD SPECIMENOrdering Facility: [facility] Address: [address] [place] [address] Performed By: #### L [id number] ####[facility] LABIA [id number] [place] [address] [place] Gamma globulin Elph [Mass/Vol] 0.48 g/dL Low 0.53-1.51 [facility] Comment on above: Order Comment: Speci men Type: BLOOD SPECIMENOrdering Facility: [facility] Address: [address] [place] [address] Performed By: #### L [id number] ####[facility] LABCLIA [id number] [address] M-PROTEIN LOCATION Normal [facility] Comment on above: Order Comment: Speci men Type: BLOOD SPECIMENOrdering Facility: [facility] Address: [address] [place] [address] Result Comment: Not Applicable. Performed By: #### L [id number] ####[facility] LABCLIA [id number] [place] [id number] [facility] [place] Protein Fractions [Interp] No definitive M protein is identified on protein electrophoresis. Normal No definitive M protein is identified on protein electrophore sis. [facility] Comment on above: Order Comment: Speci men Type: BLOOD SPECIMENOrdering Facility: [facility] Address: [address] [place] [address] Performed By: #### L [id number] ####[facility] LABCLIA [id number] [address] Protein.monoclonal Elph [Mass/Vol] 0.00 g/dL Normal <=0.00 [facility] Comment on above: Order Comment: Speci men Type: BLOOD SPECIMENOrdering Facility: [facility] Address: [address] [place] [address] Performed By: #### L [id number] ####[facility] LABCLIA [id number] [place] [id number] [facility] [place] SPE STAFF REVIEW Reviewed by Sebas Ocampo MD, Ph.D ([id number]) Normal [facility] Comment on above: Order Comment: Speci men Type: BLOOD SPECIMENOrdering Facility: [facility] Address: [address] [place] [address] Performed By: #### L [id number] ####[facility] LABCLIA [id number] [facility] [address] [place] PT panel Coag (PPP)on 2024 INR Coag (PPP) [Relative time] 0.9 {INR} Normal 0.9-1.3 [facility] Comment on above: Order Comment: Speci men Type: BLOOD SPECIMENOrdering Facility: [facility] Address: [address] [place] [address] Result Comment: Melissa min K Antagonist (VKA) Therapeutic Range: INR 2 to 3 (Target INR of 2.5)Note: For patients treated with VKA drugs, such as warfarin, the [place] [employer] 2012 Guideline recommends [...] Chest 2012, 141:7S-47SJean Claude RA, et al. [facility] 2017, 70: 252-289 Performed By: #### 3 4528-0 ####[facility]ORY[facility]IA [id number] [place] [address] [place] PT Coag (PPP) [Time] 10.3 s Normal 9.7-13.0 [facility] Comment on above: Order Comment: Speci men Type: BLOOD SPECIMENOrdering Facility: [facility] Address: [address] [address] [place] [id number] Performed By: #### 3 4528-0 ####[facility]ORATORYCLIA [id number] [place] [id number] [place] Potassium ?Tm Ur-sCncon 04- Potassium Unsp time (U) [Moles/Vol] 21.5 mmol/L Normal 10.0-160.0 [facility] Comment on above: Order Comment: Speci men Type: URINE SPECIMENOrdering Facility: [facility] Address: [address] [place] [address] Performed By: #### 3 5677-4, 2890-2, UACR, 13823-6, 78888-8 ####[facility] LABCLIA [id number] [facility] [place] [id number] [place] Prot SerPl-mCncon 07-11-2024 Protein [Mass/Vol] 6.2 g/dL Low 6.3-8.0 [facility] Comment on above: Order Comment: Speci men Type: BLOOD SPECIMENOrdering Facility: [facility] Address: [address] [place] [address] Performed By: #### 4 498-2, 4485-9, 2885-2 ####[facility] LABCLIA [id number] [place] [address] [place] Prot/Creat Uron 07-11-2024 Protein/Creatinine (U) [Mass ratio] 7.24 mg/mg High <0.15 [facility] Comment on above: Order Comment: Speci men Type: URINE SPECIMENOrdering Facility: [facility] Address: [address] [place] [address] Result Comment: Adul t Proteinuria Categories:<0.15 mg/mg is considered normal to mildly increased0.15 - 0.50 mg/mg is considered moderately increased>0.50 mg/mg is considered severely increasedKDIGO. (2013). KDIGO 2012 Clinical Practice Guideline for the Evaluation and Management of Chronic Kidney Disease. Official Journal of the International Society of Nephrology, 3(1), 1-150. Performed By: #### 3 5677-4, 2890-2, UACR, 80824-4, 52674-9 ####[facility] LABCLIA [id number] [address] [place] [address] [place] Protein/Creatinine (U) [Mass ratio]on 07-11-2024 Protein (U) [Mass/Vol] 333 mg/dL High 0-20 [facility] Comment on above: Order Comment: Speci men Type: URINE SPECIMENOrdering Facility: [facility] Address: [address] [place] [address] Performed By: #### 3 5677-4, 2890-2, UACR, 64243-2, 38671-9 ####[facility] LABCLIA [id number] [place] [address] [place] Sodium ?Tm Ur-sCncon 025 Sodium Unsp time (U) [Moles/Vol] 86 mmol/L Normal 14-216 [facility] Comment on above: Order Comment: Speci men Type: URINE SPECIMENOrdering Facility: [facility] Address: [address] [place] [address] Performed By: #### 3 5677-4, 2890-2, UACR, 89676-2, 48576-8 ####[facility] LABCLIA [id number] [place] [address] [place] THERAPY NTon 07-11-2024 THERAPY NT Normal [facility] THERAPY NT Normal [facility] THERAPY NT Normal [facility] THSD7A AB, S (REFLEX ONLY)on 07-11-2024 THSD7A AB, S Negative Normal Negative [facility] Comment on above: Order Comment: Speci men Type: BLOOD SPECIMENOrdering Facility: [facility] Address: [address] [place] [address] Result Comment: ---- ADDITIONAL INFORMATION This test was developed and its performance characteristicsdetermined by [facility] in a manner consistent withCLIA requirements. This test has not been cleared orapproved by the U.S. Food and Drug Administration.Test Performed by:[address] [id number] Director: Soy Loomis Ph.D.; CLIA# [id number] Performed By: #### P MNDCS, PLA2RI, THSD7A ####[facility] LABCLIA [id number] [place] [address] Urinalysis complete panel (U )on 07-11-2024 Bilirubin Ql (U) Negative Normal Negative [facility] Comment on above: Order Comment: Speci men Type: URINE SPECIMENOrdering Facility: [facility] Address: [address] [place] [address] Performed By: #### 2 4356-8 ####[facility]ATORYCLIA [id number] [address] [place] Clarity (Unsp spec) Clear Normal [facility] Comment on above: Order Comment: Speci men Type: URINE SPECIMENOrdering Facility: [facility] Address: [address] [place] [address] Performed By: #### 2 4356-8 ####[facility]ORATORYCLIA [id number] [address] [place] Color (U) Yellow Normal Yellow [facility] Comment on above: Order Comment: Speci men Type: URINE SPECIMENOrdering Facility: [facility] Address: [address] [place] [address] Performed By: #### 2 4356-8 ####[facility]ORATORYCLIA [id number] [address] [place] Epithelial cells LM.HPF (Urine sed) [#/Area] Few Normal [facility] Comment on above: Order Comment: Speci men Type: URINE SPECIMENOrdering Facility: [facility] Address: [address] [place] [address] Performed By: #### 2 4356-8 ####[facility] LABORATORYCLIA [id number] [place] [address] [place] Glucose Test strip (U) [Mass/Vol] 2+ Abnormal Negative [facility] Comment on above: Order Comment: Speci men Type: URINE SPECIMENOrdering Facility: [facility] Address: [address] [place] [address] Performed By: #### 2 4356-8 ####[facility] LABORATORYCLIA [id number] [place] [address] [place] Hemoglobin Ql (U) 1+ Abnormal Negative [facility] Comment on above: Order Comment: Speci men Type: URINE SPECIMENOrdering Facility: [facility] Address: [address] [place] [address] Performed By: #### 2 4356-8 ####[facility] LABORATORYCLIA [id number] [place] [address] [place] Ketones Ql (U) Negative Normal Negative [facility] Comment on above: Order Comment: Speci men Type: URINE SPECIMENOrdering Facility: [facility] Address: [address] [place] [address] Performed By: #### 2 4356-8 ####[facility] LABORATORYCLIA [id number] [address] [place] Leukocyte esterase Test strip Ql (U) Negative Normal Negative [facility] Comment on above: Order Comment: Speci men Type: URINE SPECIMENOrdering Facility: [facility] Address: [address] [place] [address] Performed By: #### 2 4356-8 ####[facility] LABORATORYCLIA [id number] [place] [address] [place] Nitrite Ql (U) Negative Normal Negative [facility] Comment on above: Order Comment: Speci men Type: URINE SPECIMENOrdering Facility: [facility] Address: [address] [place] [address] Performed By: #### 2 4356-8 ####[facility] LABORATORYCLIA [id number] [place] [address] [place] pH (U) 6.0 [pH] Normal 5.0-8.0 [facility] Comment on above: Order Comment: Speci men Type: URINE SPECIMENOrdering Facility: [facility] Address: [address] [place] [address] Performed By: #### 2 4356-8 ####[facility] LABORATORYCLIA [id number] [place] [address] [place] Protein (U) [Mass/Vol] 3+ Abnormal Negative [facility] Comment on above: Order Comment: Speci men Type: URINE SPECIMENOrdering Facility: [facility] Address: [address] [place] [address] Performed By: #### 2 4356-8 ####[facility]ORATORYCLIA [id number] [address] RBC LM.HPF (Urine sed) [#/Area] 0-3 /HPF Normal 0-3 /HPF [facility] Comment on above: Order Comment: Speci men Type: URINE SPECIMENOrdering Facility: [facility] Address: [address] [place] [address] Performed By: #### 2 4356-8 ####[facility]ORATORYCLIA [id number] [address] [place] Specific gravity (U) [Rel density] 1.020 Normal 1.005-1.030 [facility] Comment on above: Order Comment: Speci men Type: URINE SPECIMENOrdering Facility: [facility] Address: [address] [place] [address] Performed By: #### 2 4356-8 ####[facility]ORATORYCLIA [id number] [address] Urobilinogen Ql (U) 0.2 EU/dL Normal 0.2-1.0 EU/dL [facility] Comment on above: Order Comment: Speci men Type: URINE SPECIMENOrdering Facility: [facility] Address: [address] [place] [address] Performed By: #### 2 4356-8 ####[facility]ORATORYCLIA [id number] [address] WBC LM.HPF (Urine sed) [#/Area] 0-5 /HPF Normal 0-5 /HPF [facility] Comment on above: Order Comment: Speci men Type: URINE SPECIMENOrdering Facility: [facility] Address: [address] [place] [address] Performed By: #### 2 4356-8 ####[facility] LABORATORYCLIA [id number] [address] [place] ALLIED HEALTHon 07-10-2024 ALLIED HEALTH Normal [facility] ALLIED HEALTH Normal [facility] Basic metabolic 2000 panelon 07-10-2024 Anion gap [Moles/Vol] 13 mmol/L Normal 8-15 [facility] Comment on above: Order Comment: Speci men Type: BLOOD SPECIMENOrdering Facility: [facility] Address: [address] [place] [address] Performed By: #### 2 4321-2 ####[facility] LABORATORYCLIA [id number] [place] [address] [place] Calcium [Mass/Vol] 8.6 mg/dL Normal 8.5-10.2 [facility] Comment on above: Order Comment: Speci men Type: BLOOD SPECIMENOrdering Facility: [facility] Address: [address] [place] [address] Performed By: #### 2 4321-2 ####[facility]ORATORYCLIA [id number] [place] [address] [place] Chloride [Moles/Vol] 107 mmol/L Normal 98-107 [facility] Comment on above: Order Comment: Speci men Type: BLOOD SPECIMENOrdering Facility: [facility] Address: [address] [place] [address] Performed By: #### 2 4321-2 ####[facility] LABORATORYCLIA [id number] [place] [address] [place] CO2 [Moles/Vol] 22 mmol/L Normal 22-30 [facility] Comment on above: Order Comment: Speci men Type: BLOOD SPECIMENOrdering Facility: [facility] Address: [address] [place] [address] Performed By: #### 2 4321-2 ####[facility] LABORATORYCLIA [id number] [place] [id number] [place] Creatinine [Mass/Vol] 6.19 mg/dL High 0.73-1.22 [facility] Comment on above: Order Comment: Speci men Type: BLOOD SPECIMENOrdering Facility: [facility] Address: [address] [place] [address] Performed By: #### 2 4321-2 ####[facility] LABORATORYCLIA [id number] [place] [address] [place] Creatinine and Glomerular filtration rate.predicted panel (S/P/Bld) 9 mL/min/1.73m??? Low >=60 [facility] Comment on above: Order Comment: Luz vaughan Type: BLOOD SPECIMENOrdering Facility: [facility] Address: [address] [place] [address] Result Comment: Breanne mated Glomerular Filtration Rate [...] Performed By: #### 2 4321-2 ####[facility] LABORATORYCLIA [id number] [place] [address] [place] Glucose [Mass/Vol] 130 mg/dL High 74-99 [facility] Comment on above: Order Comment: Luz vaughan Type: BLOOD SPECIMENOrdering Facility: [facility] Address: [address] [place] [address] Result Comment: The [place] [employer] (ADA) provides guidance for cutoff [...] Standards of Medical Care in Diabetes 2016, [place] [employer]. Diabetes Care. 2016.39(Suppl 1). Performed By: #### 2 4321-2 ####[facility] LABORATORYCLIA [id number] [place] [id number] [place] Potassium [Moles/Vol] 4.7 mmol/L Normal 3.7-5.1 [facility] Comment on above: Order Comment: Luz vaughan Type: BLOOD SPECIMENOrdering Facility: [facility] Address: [address] [place] [address] Performed By: #### 2 4321-2 ####[facility]ORATORYCLIA [id number] [address] Sodium [Moles/Vol] 142 mmol/L Normal 136-144 [facility] Comment on above: Order Comment: Speci men Type: BLOOD SPECIMENOrdering Facility: [facility] Address: [address] [place] [address] Performed By: #### 2 4321-2 ####[facility]ORATORYCLIA [id number] [address] [facility] Urea nitrogen [Mass/Vol] 78 mg/dL High 9-24 [facility] Comment on above: Order Comment: Speci men Type: BLOOD SPECIMENOrdering Facility: [facility] Address: [address] [place] [address] Performed By: #### 2 4321-2 ####[facility]ORATORYCLIA [id number] [address] CBC W Auto Differential pane l (Bld)on 07-10-2024 Basophils (Bld) [#/Vol] 10*3/uL Normal <0.11 [facility] Comment on above: Order Comment: Speci men Type: BLOOD SPECIMENOrdering Facility: [facility] [facility] Address: [address] [place] [address] Performed By: #### 5 7021-8 ####ADKINS LABORATORYCLIA [id number] [address] Basophils/100 WBC (Bld) 0.2 % Normal [facility] Comment on above: Order Comment: Speci men Type: BLOOD SPECIMENOrdering Facility: [facility] Address: [address] [place] [address] Performed By: #### 5 7021-8 ####ADKINS LABORATORYCLIA [id number] [address] Differential cell count method Nom (Bld) Auto Normal [facility] Comment on above: Order Comment: Speci men Type: BLOOD SPECIMENOrdering Facility: [facility] Address: [address] [place] [address] Performed By: #### 5 7021-8 ####ADKINS LABORATORYCLIA [id number] [place] [address] [place] Eosinophils (Bld) [#/Vol] 0.24 10*3/uL Normal <0.46 [facility] Comment on above: Order Comment: Speci men Type: BLOOD SPECIMENOrdering Facility: [facility] Address: [address] [place] [address] Performed By: #### 5 7021-8 ####ADKINS LABORATORYCLIA [id number] [place] [address] [place] Eosinophils/100 WBC (Bld) 4.5 % Normal [facility] Comment on above: Order Comment: Speci men Type: BLOOD SPECIMENOrdering Facility: [facility] Address: [address] [place] [address] Performed By: #### 5 7021-8 ####ADKINS LABORATORYCLIA [id number] [address] [place] Erythrocyte distribution width (RBC) [Ratio] 13.4 % Normal 11.5-15.0 [facility] Comment on above: Order Comment: Speci men Type: BLOOD SPECIMENOrdering Facility: [facility] Address: [address] [place] [address] Performed By: #### 5 7021-8 ####ADKINS LABORATORYCLIA [id number] [address] [place] Hematocrit (Bld) [Volume fraction] 35.6 % Low 39.0-51.0 [facility] Comment on above: Order Comment: Speci men Type: BLOOD SPECIMENOrdering Facility: [facility] Address: [address] [place] [address] Performed By: #### 5 7021-8 ####ADKINS LABORATORYCLIA [id number] [address] [place] Hemoglobin (Bld) [Mass/Vol] 11.7 g/dL Low 13.0-17.0 [facility] Comment on above: Order Comment: Speci men Type: BLOOD SPECIMENOrdering Facility: [facility] Address: [address] [place] [address] Performed By: #### 5 7021-8 ####ADKINS LABORATORYCLIA [id number] [place] [address] [place] Immature granulocytes (Bld) [#/Vol] 0.03 10*3/uL Normal <0.10 [facility] Comment on above: Order Comment: Speci men Type: BLOOD SPECIMENOrdering Facility: [facility] Address: [address] [place] [address] Performed By: #### 5 7021-8 ####ADKINS LABORATORYCLIA [id number] [address] [place] Immature granulocytes/100 WBC (Bld) 0.6 % Normal [facility] Comment on above: Order Comment: Speci men Type: BLOOD SPECIMENOrdering Facility: [facility] Address: [address] [place] [address] Performed By: #### 5 7021-8 ####ADKINS LABORATORYCLIA [id number] [place] [address] [place] Lymphocytes (Bld) [#/Vol] 1.22 10*3/uL Normal 1.00-4.00 [facility] Comment on above: Order Comment: Speci men Type: BLOOD SPECIMENOrdering Facility: [facility] Address: [address] [place] [address] Performed By: #### 5 7021-8 ####ADKINS LABORATORYCLIA [id number] [place] [address] [place] Lymphocytes/100 WBC (Bld) 22.9 % Normal [facility] Comment on above: Order Comment: Speci men Type: BLOOD SPECIMENOrdering Facility: [facility] Address: [address] [place] [address] Performed By: #### 5 7021-8 ####ADKINS LABORATORYCLIA [id number] [place] [address] [place] MCH (RBC) [Entitic mass] 28.9 pg Normal 26.0-34.0 [facility] Comment on above: Order Comment: Speci men Type: BLOOD SPECIMENOrdering Facility: [facility] Address: [address] [place] [address] Performed By: #### 5 7021-8 ####ADKINS LABORATORYCLIA [id number] [address] MCHC (RBC) [Mass/Vol] 32.9 g/dL Normal 30.5-36.0 [facility] Comment on above: Order Comment: Speci men Type: BLOOD SPECIMENOrdering Facility: [facility] Address: [address] [place] [address] Performed By: #### 5 7021-8 ####ADKINS LABORATORYCLIA [id number] [address] MCV (RBC) [Entitic vol] 87.9 fL Normal 80.0-100.0 [facility] Comment on above: Order Comment: Speci men Type: BLOOD SPECIMENOrdering Facility: [facility] Address: [address] [place] [address] Performed By: #### 5 7021-8 ####ADKINS LABORATORYCLIA [id number] [address] Monocytes (Bld) [#/Vol] 0.54 10*3/uL Normal <0.87 [facility] Comment on above: Order Comment: Speci men Type: BLOOD SPECIMENOrdering Facility: [facility] Address: [address] [place] [address] Performed By: #### 5 7021-8 ####ADKINS LABORATORYCLIA [id number] [address] Monocytes/100 WBC (Bld) 10.1 % Normal [facility] Comment on above: Order Comment: Speci men Type: BLOOD SPECIMENOrdering Facility: [facility] Address: [address] [place] [address] Performed By: #### 5 7021-8 ####ADKINS LABORATORYCLIA [id number] [address] [place] Neutrophils (Bld) [#/Vol] 3.29 10*3/uL Normal 1.45-7.50 [facility] Comment on above: Order Comment: Speci men Type: BLOOD SPECIMENOrdering Facility: [facility] Address: [address] [place] [address] Performed By: #### 5 7021-8 ####ADKINS LABORATORYCLIA [id number] [address] [place] Neutrophils/100 WBC (Bld) 61.7 % Normal [facility] Comment on above: Order Comment: Speci men Type: BLOOD SPECIMENOrdering Facility: [facility] Address: [address] [place] [address] Performed By: #### 5 7021-8 ####ADKINS LABORATORYCLIA [id number] [place] [address] [place] Nucleated RBC (Bld) [#/Vol] 10*3/uL Normal <0.01 [facility] Comment on above: Order Comment: Speci men Type: BLOOD SPECIMENOrdering Facility: [facility] Address: [address] [place] [address] Performed By: #### 5 7021-8 ####ADKINS LABORATORYCLIA [id number] [place] [address] [place] Nucleated RBC/100 WBC (Bld) [Ratio] 0.0 /100 WBC Normal [facility] Comment on above: Order Comment: Speci men Type: BLOOD SPECIMENOrdering Facility: [facility] Address: [address] [place] [address] Performed By: #### 5 7021-8 ####ADKINS LABORATORYCLIA [id number] [place] [address] [place] Platelet mean volume (Bld) [Entitic vol] 8.7 fL Low 9.0-12.7 [facility] Comment on above: Order Comment: Speci men Type: BLOOD SPECIMENOrdering Facility: [facility] Address: [address] [place] [address] Performed By: #### 5 7021-8 ####ADKINS LABORATORYCLIA [id number] [place] [address] [place] Platelets (Bld) [#/Vol] 277 10*3/uL Normal 150-400 [facility] Comment on above: Order Comment: Speci men Type: BLOOD SPECIMENOrdering Facility: [facility] Address: [address] [place] [address] Performed By: #### 5 7021-8 ####ADKINS LABORATORYCLIA [id number] [address] RBC (Bld) [#/Vol] 4.05 10*6/uL Low 4.20-6.00 [facility] Comment on above: Order Comment: Speci men Type: BLOOD SPECIMENOrdering Facility: [facility] Address: [address] [place] [address] Performed By: #### 5 7021-8 ####ADKINS LABORATORYCLIA [id number] [address] WBC (Bld) [#/Vol] 5.33 10*3/uL Normal 3.70-11.00 [facility] Comment on above: Order Comment: Speci men Type: BLOOD SPECIMENOrdering Facility: [facility] Address: [address] [place] [address] Performed By: #### 5 7021-8 ####ADKINS LABORATORYCLIA [id number] [address] Comprehensive metabolic 2000 panelon 07-10-2024 Albumin [Mass/Vol] 3.5 g/dL Low 3.9-4.9 [facility] Comment on above: Order Comment: Speci men Type: BLOOD SPECIMENOrdering Facility: [facility] Address: [address] [place] [address] Performed By: #### 2 4323-8, ####ADKINS LABORATORYCLIA [id number] [address] ALP [Catalytic activity/Vol] 80 U/L Normal 38-113 [facility] Comment on above: Order Comment: Speci men Type: BLOOD SPECIMENOrdering Facility: [facility] Address: [address] [place] [address] Performed By: #### 2 4323-8, ####ADKINS LABORATORYCLIA [id number] [place] [address] [place] ALT [Catalytic activity/Vol] 10 U/L Normal 10-54 [facility] Comment on above: Order Comment: Speci men Type: BLOOD SPECIMENOrdering Facility: [facility] Address: [address] [place] [address] Performed By: #### 2 432-8, ####ADKINS LABORATORYCLIA [id number] [place] [address] [place] Anion gap [Moles/Vol] 14 mmol/L Normal 8-15 [facility] Comment on above: Order Comment: Speci men Type: BLOOD SPECIMENOrdering Facility: [facility] Address: [address] [place] [address] Performed By: #### 2 8, ####ADKINS LABORATORYCLIA [id number] [address] [place] AST [Catalytic activity/Vol] 11 U/L Low 14-40 [facility] Comment on above: Order Comment: Speci men Type: BLOOD SPECIMENOrdering Facility: [facility] Address: [address] [place] [address] Performed By: #### 2 432-8, ####ADKINS LABORATORYCLIA [id number] [place] [address] [place] Bilirubin [Mass/Vol] 0.2 mg/dL Normal 0.2-1.3 [facility] Comment on above: Order Comment: Speci men Type: BLOOD SPECIMENOrdering Facility: [facility] Address: [address] [facility] [facility] [address] Performed By: #### 2 432-8, ####ADKINS LABORATORYCLIA [id number] [address] [place] Calcium [Mass/Vol] 9.2 mg/dL Normal 8.5-10.2 [facility] Comment on above: Order Comment: Speci men Type: BLOOD SPECIMENOrdering Facility: [facility] Address: [address] [place] [address] Performed By: #### 2 8, ####ADKINS LABORATORYCLIA [id number] [place] [address] [place] Chloride [Moles/Vol] 104 mmol/L Normal 98-107 [facility] Comment on above: Order Comment: Luz vaughan Type: BLOOD SPECIMENOrdering Facility: [facility] Address: [address] [place] [address] Performed By: #### 2 4323-8, ####ADKINS LABORATORYCLIA [id number] [place] [address] [place] CO2 [Moles/Vol] 23 mmol/L Normal 22-30 [facility] Comment on above: Order Comment: Luz vaughan Type: BLOOD SPECIMENOrdering Facility: [facility] Address: [address] [place] [address] Performed By: #### 2 4323-8, ####ADKINS LABORATORYCLIA [id number] [place] [address] [place] Creatinine [Mass/Vol] 6.77 mg/dL High 0.73-1.22 [facility] Comment on above: Order Comment: Luz vaughan Type: BLOOD SPECIMENOrdering Facility: [facility] Address: [address] [place] [address] Performed By: #### 2 4323-8, ####ADKINS LABORATORYCLIA [id number] [address] Creatinine and Glomerular filtration rate.predicted panel (S/P/Bld) 8 mL/min/1.73m??? Low >=60 [facility] Comment on above: Order Comment: Luz vaughan Type: BLOOD SPECIMENOrdering Facility: [facility] Address: [address] [place] [address] Result Comment: Breanne mated Glomerular Filtration Rate [...] actual GFR. Performed By: #### 2 4328, ####SEBRING LABORATORYCLIA [id number] [place] [address] [place] Glucose [Mass/Vol] 141 mg/dL High 74-99 [facility] Comment on above: Order Comment: Luz vaughan Type: BLOOD SPECIMENOrdering Facility: [facility] Address: [address] [place] [address] Result Comment: The [place] [employer] (ADA) provides guidance for cutoff [...] Standards of Medical Care in Diabetes 2016, [place] [employer]. Diabetes Care. 2016.39(Suppl 1). Performed By: #### 2 43206-08, ####SEBRING LABORATORYCLIA [id number] [place] [address] [place] Potassium [Moles/Vol] 5.9 mmol/L High 3.7-5.1 [facility] Comment on above: Order Comment: Luz vaughan Type: BLOOD SPECIMENOrdering Facility: [facility] Address: [address] [place] [address] Performed By: #### 2 43206-08, ####SEBRING LABORATORYCLIA [id number] [place] [address] [place] Protein [Mass/Vol] 6.5 g/dL Normal 6.3-8.0 [facility] Comment on above: Order Comment: Luz vaughan Type: BLOOD SPECIMENOrdering Facility: [facility] Address: [address] [place], [place] [address] Performed By: #### 2 43238, ####SEBRING LABORATORYCLIA [id number] [place] [id number] [place] Sodium [Moles/Vol] 141 mmol/L Normal 136-144 [facility] Comment on above: Order Comment: Speci men Type: BLOOD SPECIMENOrdering Facility: [facility] Address: [address] [place], [place] [address] Performed By: #### 2 4323-8, ####ADKINS LABORATORYCLIA [id number] [place] [address] [place] Urea nitrogen [Mass/Vol] 82 mg/dL High 9-24 [facility] Comment on above: Order Comment: Speci men Type: BLOOD SPECIMENOrdering Facility: [facility] Address: [address] [place] [address] Performed By: #### 2 4328, ####ADKINS LABORATORYCLIA [id number] [place] [address] [facility] ED NOTEon 07-10-2024 ED NOTE HNO ID: [id number] Author: ART PAYNE RN Service: ? Author Type: Registered Nurse Type: ED Notes Filed: 07/10/2024 20:41 Note Text: Heads up given to 3 south rn discharge [facility] ED NOTE HNO ID: [id number] Author: SANDRA WHITEHEAD RN Service: Nursing Author Type: Registered Nurse Type: ED Notes Filed: 07/10/2024 16:25 Note Text: Patient speaking to virtual triage doctor Normal [facility] ED PROV NOTEon 07-10-2024 ED PROV NOTE Normal [facility] ED Triage Noteon 07-10-2024 ED Triage Note Normal [facility] Magnesium SerPl-mCncon 07-10 Magnesium [Mass/Vol] 2.3 mg/dL Normal 1.7-2.3 [facility] Comment on above: Order Comment: Speci men Type: BLOOD SPECIMENOrdering Facility: [facility] Address: [address] [place] [address] Performed By: #### 2 4323-8, ####ADKINS LABORATORYCLIA [id number] [place] [address] [facility] NURSING PROGon 04-09-2025 NURSING PROG [facility] US KIDNEY/BLADDERon 07-11-19 25 US KIDNEY/BLADDER [facility] XR CHEST 2V FRONTAL/LATon XR CHEST 2V FRONTAL/LAT [facility] 36on 06-28-2024 36 S: Patient spoke wit h CAC nurse regarding abnormal labs results being called by the [facility]. Hx: DM B: Onset of symptoms/concern labs were drawn from the [place] office at his appointment on 06/27/24 having an urgent notification at 15:54 was seen in the office for a 2-month follow up A: Bun 79.9 CR 4.3 Potassium 7.1 R: Paging Dr. Scott at 3:55 No further needs at this time. Reason for Disposition Lab or radiology calling with test results Protocols used: PCP Call - [facility] ANES POSTPROC EVALon 025 ANES POSTPROC EVAL Normal [facility] ANES PRE-OPon 05-13-2024 ANES PRE-OP Normal [facility] Colonoscopy Study observatio non 05-13-2024 [facility] Gastrointestinal Endoscopy Patient Name: José Manuel Ashton Procedure Date: 05/13/2024 10:48 AM Date of : 1960 Admit Type: Outpatient Room: [place] [address] Gender: Male Note Status: Finalized Attending MD: Artem Ahmadi MD, [id number] Procedure: Colonoscopy Indications: High risk colon cancer [...] provided to (more content not included)... [employer] Radiology Study observation (narrative) [facility] HISTORY PHYSICALon 5 HISTORY PHYSICAL Normal [facility] Pathology biopsy report Kade (Tiss)on 05-13-2024 CASE REPORT Normal [facility] Comment on above: Order Comment: Speci men Type: TISSUE SPECIMENOrdering Facility: [facility] Address: [address] [place] [address] Result Comment: Surg ical Pathology Report Case: [id number] Provider: Artem Ahmadi MD Collected: 05/13/2024 11:27 AMOrdering Location: [place] ENDO Received: 05/14/2024 08:40 AMPathologist: Machelle Ignacio MDSpecimens: A) - Colon, Transverse, Polyp, x 3 B) - Colon, Cecum, Polyp, x 2 C) - Colon, Hepatic Flexure, Polyp D) - Rectum, Polyp Performed By: #### 6 6121-5 ####[facility] RENSSELAERCLIA [id number] [address] DIAGNOSIS COMMENT In parts B and C multiple additional deeper levels have been examined. Normal [facility] Comment on above: Order Comment: Speci men Type: TISSUE SPECIMENOrdering Facility: [facility] Address: [address] [place] [address] Performed By: #### 6 6121-5 ####[facility] RENSSELAERCLIA [id number] [address] FINAL DIAGNOSIS Normal [facility] Comment on above: Order Comment: Speci men Type: TISSUE SPECIMENOrdering Facility: [facility] Address: [address] [place] [address] Result Comment: A. T ransverse colon polyp (x3), polypectomy:-- Fragments of tubular adenoma.B. Cecum colon polyp (x2), polypectomy:-- Tubular adenoma, see comment.C. Hepatic flexure polyp, polypectomy:-- Polypoid fragment of colonic mucosa with no significant histopathologic abnormalities, see comment.D. Rectum polyp, polypectomy:-- Tubular adenoma. at 1506 EST Performed By: #### 6 6121-5 ####[facility] LABORATORYCLIA [id number] [address] [place] [facility] FINAL PERFORMING LAB Normal [facility] Comment on above: Order Comment: Speci men Type: TISSUE SPECIMENOrdering Facility: [facility] Address: [address] [place] [address] Result Comment: Diag nostic interpretation performed at: [facility], [address] [place] [address] CLIA# [id number] Director: aKhlil Lewis MD Performed By: #### 6 6121-5 ####[facility] LABORATORYCLIA [id number] [address] GROSS DESCRIPTION Normal [facility] Comment on above: Order Comment: Speci men Type: TISSUE SPECIMENOrdering Facility: [facility] Address: [address] [place] [address] Result Comment: A. C olon, Transverse, PolypReceived [...] submitted entirely in D1.Gross examination performed at [facility], [address] [place] [address] CLIA#[id number] May 14, 2024 2:55 PM Performed By: #### 6 6121-5 ####[facility] LABORATORYCLIA [id number] OF [facility] VENOUS BLOOD GAS, POC (AK,MH ,MR)on 05-13-2024 Base Excess (POCT) -5 mmol/L Abnormal -2 - 3 mmol/L [facility] CO2 [Moles/Vol] 23 mmol/L Abnormal 24 - 29 mmol/L [facility] Glucose [Mass/Vol] 128 mg/dL Abnormal 70 - 105 mg/dL [facility] HCO3 (Bld) [Moles/Vol] 22.1 mmol/L Abnormal 23.0 - 28.0 mmol/L [facility] Hematocrit (Bld) [Volume fraction] 34 % Abnormal [facility] Hemoglobin (Bld) [Mass/Vol] 11.6 g/dL Abnormal 12.0 - 17.0 g/dL [facility] Interpretation and review of laboratory results Abnormal [facility] Ionized Ca (POCT) 1.28 mmol/L 1.12 - 1.3 2 mmol/L [facility] pCO2,Venous(POCT) 46.4 [facility] pH,Venous(POCT) 7.286 Abnormal [facility] pO2,Venous(POCT) [facility] Potassium [Moles/Vol] 4.4 mmol/L 3.5 - 4.9 mmol/L [facility] Pt Note NEW UNIT CHANGE iCa: md/dL to mmol/L starting 09/30 [facility] sO2 (POCT) <> 60 - 85 % [facility] Sodium [Moles/Vol] 144 mmol/L 138 - 146 mmol/L [facility] Meter ID:[id number] Location:[facility] Surgery, [address] [place] [address], [address] [place] [address] POINT OF CARE [facility] 36on 04-27-2024 36 S: Patient's sister [...] to answer question Protocols used: Medication Question Ibai-[id number]-BQ Normal [facility] Basic metabolic 2000 panelon 04-26-2024 Anion gap [Moles/Vol] 11 mmol/L Normal 8-15 [facility] Comment on above: Order Comment: Luz vaughan Type: BLOOD SPECIMENOrdering Facility: External Submitter Address: , , Performed By: #### 1 988-5, ####[facility] LABORATORYCLIA [id number] [place] [address] [place] Calcium [Mass/Vol] 9.4 mg/dL Normal 8.5-10.2 [facility] Comment on above: Order Comment: Luz vaughan Type: BLOOD SPECIMENOrdering Facility: External Submitter Address: , , Performed By: #### 1 988-5, ####[facility] LABORATORYCLIA [id number] [place] [address] [place] Chloride [Moles/Vol] 108 mmol/L High 98-107 [facility] Comment on above: Order Comment: Luz vaughan Type: BLOOD SPECIMENOrdering Facility: External Submitter Address: , , Performed By: #### 1 988-5, ####[facility] LABORATORYCLIA [id number] [place] [address] [place] CO2 [Moles/Vol] 22 mmol/L Normal 22-30 [facility] Comment on above: Order Comment: Luz vaughan Type: BLOOD SPECIMENOrdering Facility: External Submitter Address: , , Performed By: #### 1 988-5, ####[facility] LABORATORYCLIA [id number] [place] [address] [place] Creatinine [Mass/Vol] 3.41 mg/dL High 0.73-1.22 [facility] Comment on above: Order Comment: Luz vaughan Type: BLOOD SPECIMENOrdering Facility: External Submitter Address: , , Performed By: #### 1 988-5, ####[facility] LABORATORYCLIA [id number] [place] [address] [place] Creatinine and Glomerular filtration rate.predicted panel (S/P/Bld) 19 mL/min/1.73m??? Low >=60 [facility] Comment on above: Order Comment: [...] actual GFR. Performed By: #### 1 988-5, 53227-0 ####[facility] LABORATORYCLIA [id number] [place] [address] [place] Glucose [Mass/Vol] 128 mg/dL High 74-99 [facility] Comment on above: Order Comment: Luz vaughan Type: BLOOD SPECIMENOrdering Facility: External Submitter Address: , , Result Comment: The [place] [employer] (ADA) provides guidance for cutoff [...] Standards of Medical Care in Diabetes 2016, [place] [employer]. Diabetes Care. 2016.39(Suppl 1). Performed By: #### 1 988-5, 95606-6 ####[facility] LABORATORYCLIA [id number] [place] [id number] [place] Potassium [Moles/Vol] 6.2 mmol/L Critically high 3.7-5.1 [facility] Comment on above: Order Comment: Luz vaughan Type: BLOOD SPECIMENOrdering Facility: External Submitter Address: , , Performed By: #### 1 988-5, 46853-6 ####[facility] LABORATORYCLIA [id number] [place], [place] [id number] [place] [address] [place] [facility] Sodium [Moles/Vol] 141 mmol/L Normal 136-144 [facility] Comment on above: Order Comment: Speci men Type: BLOOD SPECIMENOrdering Facility: External Submitter Address: , , Performed By: #### 1 988-5, 94527-2 ####[facility] LABORATORYCLIA [id number] [address] [place] Urea nitrogen [Mass/Vol] 59 mg/dL High 12-25 [facility] Comment on above: Order Comment: Speci men Type: BLOOD SPECIMENOrdering Facility: External Submitter Address: , , Performed By: #### 1 988-5, 25404-9 ####[facility] LABORATORYCLIA [id number] [address] [place] CBC W Auto Differential pane l (Bld)on 04-26-2024 Basophils (Bld) [#/Vol] 10*3/uL Normal <0.11 [facility] Comment on above: Order Comment: Speci men Type: BLOOD SPECIMENOrdering Facility: [facility] Address: [address] [place] [address] Performed By: #### 5 7021-8 ####[facility] LABORATORYCLIA [id number] [address] Basophils/100 WBC (Bld) 0.3 % Normal [facility] Comment on above: Order Comment: Speci men Type: BLOOD SPECIMENOrdering Facility: [facility] Address: [address] [place] [address] Performed By: #### 5 7021-8 ####[facility] LABORATORYCLIA [id number] [address] Differential cell count method Nom (Bld) Auto Normal [facility] Comment on above: Order Comment: Speci men Type: BLOOD SPECIMENOrdering Facility: [facility] Address: [address] [place] [address] Performed By: #### 5 7021-8 ####[facility] LABORATORYCLIA [id number] [place] [address] [place] Eosinophils (Bld) [#/Vol] 0.25 10*3/uL Normal <0.46 [facility] Comment on above: Order Comment: Speci men Type: BLOOD SPECIMENOrdering Facility: [facility] Address: [address] [place] [address] Performed By: #### 5 7021-8 ####[facility] LABORATORYCLIA [id number] [address] [place] Eosinophils/100 WBC (Bld) 4.3 % Normal [facility] Comment on above: Order Comment: Speci men Type: BLOOD SPECIMENOrdering Facility: [facility] Address: [address] [place] [address] Performed By: #### 5 7021-8 ####[facility] LABORATORYCLIA [id number] [address] [place] Erythrocyte distribution width (RBC) [Ratio] 14.0 % Normal 11.5-15.0 [facility] Comment on above: Order Comment: Speci men Type: BLOOD SPECIMENOrdering Facility: [facility] Address: [address] [place] [address] Performed By: #### 5 7021-8 ####[facility] LABORATORYCLIA [id number] [address] [place] Hematocrit (Bld) [Volume fraction] 34.2 % Low 39.0-51.0 [facility] Comment on above: Order Comment: Speci men Type: BLOOD SPECIMENOrdering Facility: [facility] Address: [address] [place] [address] Performed By: #### 5 7021-8 ####[facility] LABORATORYCLIA [id number] [address] [place] Hemoglobin (Bld) [Mass/Vol] 11.0 g/dL Low 13.0-17.0 [facility] Comment on above: Order Comment: Speci men Type: BLOOD SPECIMENOrdering Facility: [facility] Address: [address] [place] [address] Performed By: #### 5 7021-8 ####[facility] LABORATORYCLIA [id number] [place] [address] [place] Immature granulocytes (Bld) [#/Vol] 0.03 10*3/uL Normal <0.10 [facility] Comment on above: Order Comment: Speci men Type: BLOOD SPECIMENOrdering Facility: [facility] Address: [address] [place] [address] Performed By: #### 5 7021-8 ####[facility] LABORATORYCLIA [id number] [address] [place] Immature granulocytes/100 WBC (Bld) 0.5 % Normal [facility] Comment on above: Order Comment: Speci men Type: BLOOD SPECIMENOrdering Facility: [facility] Address: [address] [place] [address] Performed By: #### 5 7021-8 ####[facility] LABORATORYCLIA [id number] [place] [address] [place] Lymphocytes (Bld) [#/Vol] 1.35 10*3/uL Normal 1.00-4.00 [facility] Comment on above: Order Comment: Speci men Type: BLOOD SPECIMENOrdering Facility: [facility] Address: [address] [place] [address] Performed By: #### 5 7021-8 ####[facility] LABORATORYCLIA [id number] [address] Lymphocytes/100 WBC (Bld) 23.4 % Normal [facility] Comment on above: Order Comment: Speci men Type: BLOOD SPECIMENOrdering Facility: [facility] Address: [address] [place] [address] Performed By: #### 5 7021-8 ####[facility] LABORATORYCLIA [id number] [place] [address] [place] MCH (RBC) [Entitic mass] 28.5 pg Normal 26.0-34.0 [facility] Comment on above: Order Comment: Speci men Type: BLOOD SPECIMENOrdering Facility: [facility] Address: [address] [place] [address] Performed By: #### 5 7021-8 ####[facility] LABORATORYCLIA [id number] [address] [place] MCHC (RBC) [Mass/Vol] 32.2 g/dL Normal 30.5-36.0 [facility] Comment on above: Order Comment: Speci men Type: BLOOD SPECIMENOrdering Facility: [facility] Address: [address] [place] [address] Performed By: #### 5 7021-8 ####[facility] LABORATORYCLIA [id number] [address] [place] MCV (RBC) [Entitic vol] 88.6 fL Normal 80.0-100.0 [facility] Comment on above: Order Comment: Speci men Type: BLOOD SPECIMENOrdering Facility: [facility] Address: [address] [place] [address] Performed By: #### 5 7021-8 ####[facility] LABORATORYCLIA [id number] [address] [place] Monocytes (Bld) [#/Vol] 0.52 10*3/uL Normal <0.87 [facility] Comment on above: Order Comment: Speci men Type: BLOOD SPECIMENOrdering Facility: [facility] Address: [address] [place] [address] Performed By: #### 5 7021-8 ####[facility] LABORATORYCLIA [id number] [address] Monocytes/100 WBC (Bld) 9.0 % Normal [facility] Comment on above: Order Comment: Speci men Type: BLOOD SPECIMENOrdering Facility: [facility] Address: [address] [place] [address] Performed By: #### 5 7021-8 ####[facility] LABORATORYCLIA [id number] [address] [place] Neutrophils (Bld) [#/Vol] 3.61 10*3/uL Normal 1.45-7.50 [facility] Comment on above: Order Comment: Speci men Type: BLOOD SPECIMENOrdering Facility: [facility] Address: [address] [place] [address] Performed By: #### 5 7021-8 ####[facility] LABORATORYCLIA [id number] [place] [address] [place] Neutrophils/100 WBC (Bld) 62.5 % Normal [facility] Comment on above: Order Comment: Speci men Type: BLOOD SPECIMENOrdering Facility: [facility] Address: [address] [place] [address] Performed By: #### 5 7021-8 ####[facility] LABORATORYCLIA [id number] [place] [address] [place] Nucleated RBC (Bld) [#/Vol] 10*3/uL Normal <0.01 [facility] Comment on above: Order Comment: Speci men Type: BLOOD SPECIMENOrdering Facility: [facility] Address: [address] [place] [address] Performed By: #### 5 7021-8 ####[facility] LABORATORYCLIA [id number] [place] [address] [place] Nucleated RBC/100 WBC (Bld) [Ratio] 0.0 /100 WBC Normal [facility] Comment on above: Order Comment: Speci men Type: BLOOD SPECIMENOrdering Facility: [facility] Address: [address] [place] [address] Performed By: #### 5 7021-8 ####[facility] LABORATORYCLIA [id number] [place] [address] [place] Platelet mean volume (Bld) [Entitic vol] 9.5 fL Normal 9.0-12.7 [facility] Comment on above: Order Comment: Speci men Type: BLOOD SPECIMENOrdering Facility: [facility] Address: [address] [place] [address] Performed By: #### 5 7021-8 ####[facility] LABORATORYCLIA [id number] [place] [address] [place] Platelets (Bld) [#/Vol] 256 10*3/uL Normal 150-400 [facility] Comment on above: Order Comment: Speci men Type: BLOOD SPECIMENOrdering Facility: [facility] Address: [address] [place] [address] Performed By: #### 5 7021-8 ####[facility] LABORATORYCLIA [id number] [place], [place] [address] [place] [address] [place] RBC (Bld) [#/Vol] 3.86 10*6/uL Low 4.20-6.00 [facility] Comment on above: Order Comment: Speci men Type: BLOOD SPECIMENOrdering Facility: [facility] Address: [address] [place] [address] Performed By: #### 5 7021-8 ####[facility] LABORATORYCLIA [id number] [address] [place] WBC (Bld) [#/Vol] 5.78 10*3/uL Normal 3.70-11.00 [facility] Comment on above: Order Comment: Speci men Type: BLOOD SPECIMENOrdering Facility: [facility] Address: [address] [place] [address] Performed By: #### 5 7021-8 ####[facility] LABORATORYCLIA [id number] [address] [place] CRP SerPl-mCncon 04-26-2024 CRP [Mass/Vol] mg/L Normal <0.9 [facility] Comment on above: Order Comment: Speci men Type: BLOOD SPECIMENOrdering Facility: [facility] Address: [address] [place] [address]676 Performed By: #### 1 988-5, 58898-2 ####[facility] LABORATORYCLIA [id number] [place] [id number] [place] ESR Westergren method (Bld) [Velocity]on 04-26-2024 ESR (Bld) [Velocity] 27 mm/h High 0-15 [facility] Comment on above: Order Comment: Speci men Type: BLOOD SPECIMENOrdering Facility: [facility] Address: [address] [place] [address] Performed By: #### 4 537-7 ####[facility] LABCLIA [id number] [place] [id number] [place] [facility] PROTEIN ELECTROPHORESIS SERU M (P)on 04-26-2024 Albumin [Mass/Vol] 3.47 g/dL Normal 3.43-5.41 [facility] Comment on above: Order Comment: Speci men Type: BLOOD SPECIMENOrdering Facility: [facility] Address: [address] [place] [address] Performed By: #### L [id number] ####[facility] LABCLIA [id number] [place] [address] [place] Alpha 1 globulin Elph [Mass/Vol] 0.31 g/dL Normal 0.18-0.43 [facility] Comment on above: Order Comment: Speci men Type: BLOOD SPECIMENOrdering Facility: [facility] Address: [address] [place] [address] 16453 Performed By: #### L [id number] ####[facility] LABCLIA [id number] [address] [place] [facility] Alpha 2 globulin Elph [Mass/Vol] 0.79 g/dL Normal 0.42-0.98 [facility] Comment on above: Order Comment: Speci men Type: BLOOD SPECIMENOrdering Facility: [facility] Address: [address] [place] [address]75 Performed By: #### L [id number] ####[facility] LABCLIA [id number] [place] [address] [place] Beta globulin Elph [Mass/Vol] 0.74 g/dL Normal 0.61-1.17 [facility] Comment on above: Order Comment: Speci men Type: BLOOD SPECIMENOrdering Facility: [facility] Address: [address] [place] [address] Performed By: #### L [id number] ####[facility] LABCLIA [id number] [place] AVENUEDESK [id number] [place] [address] Gamma globulin Elph [Mass/Vol] 0.59 g/dL Normal 0.53-1.51 [facility] Comment on above: Order Comment: Speci men Type: BLOOD SPECIMENOrdering Facility: [facility] Address: [address] [place] [address] 61685 Performed By: #### L [id number] ####[facility] LABCLIA [id number] [address] M-PROTEIN LOCATION [facility] Comment on above: Order Comment: Speci men Type: BLOOD SPECIMENOrdering Facility: [facility] Address: [address] [place] [address] 53691 Result Comment: Not Applicable. Performed By: #### L [id number] ####[facility] LABCLIA [id number] [address] Protein Fractions [Interp] No definitive M protein is identified on protein electrophoresis. Normal No definitive M protein is identified on protein electrophore sis. [facility] Comment on above: Order Comment: Speci men Type: BLOOD SPECIMENOrdering Facility: [facility] Address: [address] [place] [address]85 Performed By: #### L [id number] ####[facility] LABCLIA [id number] [address] Protein.monoclonal Elph [Mass/Vol] 0.00 g/dL Normal <=0.00 [facility] Comment on above: Order Comment: Speci men Type: BLOOD SPECIMENOrdering Facility: [facility] Address: [address] [place] [address]391 Performed By: #### L [id number] ####[facility] LABCLIA [id number] [address] SPE STAFF REVIEW Reviewed by Sebas Ocampo MD, Ph.D ([id number]) [facility] Comment on above: Order Comment: Speci men Type: BLOOD SPECIMENOrdering Facility: [facility] Address: [address] [place] [address] Performed By: #### L [id number] ####[facility] LABIA [id number] [place] 11955[address] [facility] Prot [facility] 04-26-2024 Protein [Mass/Vol] 5.9 g/dL Low 6.3-8.0 [facility] Comment on above: Order Comment: Speci men Type: BLOOD SPECIMENOrdering Facility: [facility] Address: [address] [place] [address] 97368 Performed By: #### 2 885-2 ####[facility] [id number] [address] [place] CNPNon 02-20-2024 CNPN Normal [facility] 25(OH)D3 [facility] 2023 25-hydroxyvitamin D3 [Mass/Vol] 17.5 ng/mL Low 31.0-80.0 [facility] Comment on above: Order Comment: Speci men Type: BLOOD SPECIMENOrdering Facility: External Submitter Address: , , Performed By: #### 1 989-3 ####[facility] [id number] [address] [place] ALBUMIN/CREATININE RATIO, UR INEon 01-24-2024 Albumin DL <= 20 mg/L (U) [Mass/Vol] mg/dL Normal [facility] Comment on above: Order Comment: Speci men Type: URINE SPECIMENOrdering Facility: External Submitter Address: , , Performed By: #### U ACR ####[facility] LABIA [id number] [address] [place] Albumin/Creatinine (U) [Mass ratio] >4641 High <30 [facility] Comment on above: Order Comment: Speci men Type: URINE SPECIMENOrdering Facility: External Submitter Address: , , Result Comment: Adul t Male and Female Nephrotic Criteria:<30 mg/g is considered normal to mildly -155 mg/g is considered moderately increased>300 mg/g is considered severely increasedKDIGO. (2013). KDIGO 2012 Clinical Practice Guideline for the Evaluation and Management of Chronic Kidney Disease. Official Journal of the International Society of Nephrology, 3(1), 1-150. Performed By: #### U ACR ####[facility] LABCLIA [id number] [address] Creatinine (U) [Mass/Vol] 94.8 mg/dL Normal 20.0-300.0 [facility] Comment on above: Order Comment: Speci men Type: URINE SPECIMENOrdering Facility: External Submitter Address: , , Performed By: #### U ACR ####[facility] LABCLIA [id number] [address] CBC W Auto Differential pane l (Bld)on 01-24-2024 Basophils (Bld) [#/Vol] 10*3/uL Normal <0.11 [facility] Comment on above: Order Comment: Luz vaughan Type: BLOOD SPECIMENOrdering Facility: External Submitter Address: , , Performed By: #### 5 7021-8 ####[facility] LABORATORYCLIA [id number] [address] Basophils/100 WBC (Bld) 0.3 % Normal [facility] Comment on above: Order Comment: Luz vaughan Type: BLOOD SPECIMENOrdering Facility: External Submitter Address: , , Performed By: #### 5 7021-8 ####[facility] LABORATORYCLIA [id number] [address] Differential cell count method Nom (Bld) Auto Normal [facility] Comment on above: Order Comment: Luz vaughan Type: BLOOD SPECIMENOrdering Facility: External Submitter Address: , , Performed By: #### 5 7021-8 ####[facility] LABORATORYCLIA [id number] [address] STATES OF [facility] Eosinophils (Bld) [#/Vol] 0.14 10*3/uL Normal <0.46 [facility] Comment on above: Order Comment: Speci men Type: BLOOD SPECIMENOrdering Facility: External Submitter Address: , , Performed By: #### 5 7021-8 ####[facility] LABORATORYCLIA [id number] [address] Eosinophils/100 WBC (Bld) 2.4 % Normal [facility] Comment on above: Order Comment: Speci men Type: BLOOD SPECIMENOrdering Facility: External Submitter Address: , , Performed By: #### 5 7021-8 ####[facility] LABORATORYCLIA [id number] [address] Erythrocyte distribution width (RBC) [Ratio] 14.0 % Normal 11.5-15.0 [facility] Comment on above: Order Comment: Speci men Type: BLOOD SPECIMENOrdering Facility: External Submitter Address: , , Performed By: #### 5 7021-8 ####[facility] LABORATORYCLIA [id number] [address] Hematocrit (Bld) [Volume fraction] 39.2 % Normal 39.0-51.0 [facility] Comment on above: Order Comment: Speci men Type: BLOOD SPECIMENOrdering Facility: External Submitter Address: , , Performed By: #### 5 7021-8 ####[facility] LABORATORYCLIA [id number] [address] Hemoglobin (Bld) [Mass/Vol] 12.6 g/dL Low 13.0-17.0 [facility] Comment on above: Order Comment: Speci men Type: BLOOD SPECIMENOrdering Facility: External Submitter Address: , , Performed By: #### 5 7021-8 ####[facility] LABORATORYCLIA [id number] [address] Immature granulocytes (Bld) [#/Vol] 0.03 10*3/uL Normal <0.10 [facility] Comment on above: Order Comment: Speci men Type: BLOOD SPECIMENOrdering Facility: External Submitter Address: , , Performed By: #### 5 7021-8 ####[facility] LABORATORYCLIA [id number] [address] Immature granulocytes/100 WBC (Bld) 0.5 % Normal [facility] Comment on above: Order Comment: Speci men Type: BLOOD SPECIMENOrdering Facility: External Submitter Address: , , Performed By: #### 5 7021-8 ####[facility] LABORATORYCLIA [id number] [address] Lymphocytes (Bld) [#/Vol] 1.26 10*3/uL Normal 1.00-4.00 [facility] Comment on above: Order Comment: Speci men Type: BLOOD SPECIMENOrdering Facility: External Submitter Address: , , Performed By: #### 5 7021-8 ####[facility] LABORATORYCLIA [id number] [address] Lymphocytes/100 WBC (Bld) 21.2 % Normal [facility] Comment on above: Order Comment: Speci men Type: BLOOD SPECIMENOrdering Facility: External Submitter Address: , , Performed By: #### 5 7021-8 ####[facility] LABORATORYCLIA [id number] [address] MCH (RBC) [Entitic mass] 27.1 pg Normal 26.0-34.0 [facility] Comment on above: Order Comment: Speci men Type: BLOOD SPECIMENOrdering Facility: External Submitter Address: , , Performed By: #### 5 7021-8 ####[facility] LABORATORYCLIA [id number] [address] MCHC (RBC) [Mass/Vol] 32.1 g/dL Normal 30.5-36.0 [facility] Comment on above: Order Comment: Speci men Type: BLOOD SPECIMENOrdering Facility: External Submitter Address: , , Performed By: #### 5 7021-8 ####[facility] LABORATORYCLIA [id number] [address] MCV (RBC) [Entitic vol] 84.3 fL Normal 80.0-100.0 [facility] Comment on above: Order Comment: Speci men Type: BLOOD SPECIMENOrdering Facility: External Submitter Address: , , Performed By: #### 5 7021-8 ####[facility] LABORATORYCLIA [id number] [address] [place] Monocytes (Bld) [#/Vol] 0.51 10*3/uL Normal <0.87 [facility] Comment on above: Order Comment: Speci men Type: BLOOD SPECIMENOrdering Facility: External Submitter Address: , , Performed By: #### 5 7021-8 ####[facility] LABORATORYCLIA [id number] [address] Monocytes/100 WBC (Bld) 8.6 % Normal [facility] Comment on above: Order Comment: Speci men Type: BLOOD SPECIMENOrdering Facility: External Submitter Address: , , Performed By: #### 5 7021-8 ####[facility] LABORATORYCLIA [id number] [address] Neutrophils (Bld) [#/Vol] 3.99 10*3/uL Normal 1.45-7.50 [facility] Comment on above: Order Comment: Speci men Type: BLOOD SPECIMENOrdering Facility: External Submitter Address: , , Performed By: #### 5 7021-8 ####[facility] LABORATORYCLIA [id number] [address] Neutrophils/100 WBC (Bld) 67.0 % Normal [facility] Comment on above: Order Comment: Speci men Type: BLOOD SPECIMENOrdering Facility: External Submitter Address: , , Performed By: #### 5 7021-8 ####[facility] LABORATORYCLIA [id number] [address] Nucleated RBC (Bld) [#/Vol] 10*3/uL Normal <0.01 [facility] Comment on above: Order Comment: Speci men Type: BLOOD SPECIMENOrdering Facility: External Submitter Address: , , Performed By: #### 5 7021-8 ####[facility] LABORATORYCLIA [id number] [address] Nucleated RBC/100 WBC (Bld) [Ratio] 0.0 /100 WBC Normal [facility] Comment on above: Order Comment: Speci men Type: BLOOD SPECIMENOrdering Facility: External Submitter Address: , , Performed By: #### 5 7021-8 ####[facility] LABORATORYCLIA [id number] [address] Platelet mean volume (Bld) [Entitic vol] 8.8 fL Low 9.0-12.7 [facility] Comment on above: Order Comment: Speci men Type: BLOOD SPECIMENOrdering Facility: External Submitter Address: , , Performed By: #### 5 7021-8 ####[facility] LABORATORYCLIA [id number] [address] Platelets (Bld) [#/Vol] 289 10*3/uL Normal 150-400 [facility] Comment on above: Order Comment: Speci men Type: BLOOD SPECIMENOrdering Facility: External Submitter Address: , , Performed By: #### 5 7021-8 ####[facility] LABORATORYCLIA [id number] [address] [place] RBC (Bld) [#/Vol] 4.65 10*6/uL Normal 4.20-6.00 [facility] Comment on above: Order Comment: Speci men Type: BLOOD SPECIMENOrdering Facility: External Submitter Address: , , Performed By: #### 5 7021-8 ####[facility] LABORATORYCLIA [id number] [address] WBC (Bld) [#/Vol] 5.95 10*3/uL Normal 3.70-11.00 [facility] Comment on above: Order Comment: Speci men Type: BLOOD SPECIMENOrdering Facility: External Submitter Address: , , Performed By: #### 5 7021-8 ####[facility] LABORATORYCLIA [id number] [address] Magnesium SerPl-mCncon 01-23 Magnesium [Mass/Vol] 2.0 mg/dL Normal 1.7-2.3 [facility] Comment on above: Order Comment: Speci men Type: BLOOD SPECIMENOrdering Facility: External Submitter Address: , , Performed By: #### 1 9123-9, , 3083-04 ####[facility] LABORATORYCLIA [id number] [place] [address] [place] PTH-Intact SerPl-ncon 10-2 Parathyrin.intact [Mass/Vol] 79 pg/mL High 15-65 [facility] Comment on above: Order Comment: Speci men Type: BLOOD SPECIMENOrdering Facility: External Submitter Address: , , Performed By: #### 2 731-8 ####[facility] LABCLIA [id number] [place] [address], [place] [address] [place] Renal function 2000 panelon 01-24-2024 Albumin [Mass/Vol] 4.0 g/dL Normal 3.9-4.9 [facility] Comment on above: Order Comment: Speci men Type: BLOOD SPECIMENOrdering Facility: External Submitter Address: , , Performed By: #### 1 9123-9, , 3083-04 ####[facility] LABORATORYCLIA [id number] [address] Anion gap [Moles/Vol] 10 mmol/L Normal 8-15 [facility] Comment on above: Order Comment: Speci men Type: BLOOD SPECIMENOrdering Facility: External Submitter Address: , , Performed By: #### 1 9123-9, , 3083-04 ####[facility] LABORATORYCLIA [id number] [place], [place] [address] [place] [address] Calcium [Mass/Vol] 9.7 mg/dL Normal 8.5-10.2 [facility] Comment on above: Order Comment: Speci men Type: BLOOD SPECIMENOrdering Facility: External Submitter Address: , , Performed By: #### 1 9123-9, 85149-1, 3083-04 ####[facility] LABORATORYCLIA [id number] [address] Chloride [Moles/Vol] 106 mmol/L Normal 98-107 [facility] Comment on above: Order Comment: Speci men Type: BLOOD SPECIMENOrdering Facility: External Submitter Address: , , Performed By: #### 1 9123-9, , 3083-04 ####[facility] LABORATORYCLIA [id number] [address] CO2 [Moles/Vol] 26 mmol/L Normal 22-30 [facility] Comment on above: Order Comment: Luz vaughan Type: BLOOD SPECIMENOrdering Facility: External Submitter Address: , , Performed By: #### 1 9123-9, 69278-3, 3083-04 ####[facility] LABORATORYCLIA [id number] [address] Creatinine [Mass/Vol] 2.63 mg/dL High 0.73-1.22 [facility] Comment on above: Order Comment: Luz vaughan Type: BLOOD SPECIMENOrdering Facility: External Submitter Address: , , Performed By: #### 1 9123-9, 05329-4, 3083-04 ####[facility] LABORATORYCLIA [id number] [address] Creatinine and Glomerular filtration rate.predicted panel (S/P/Bld) 26 mL/min/1.73m??? Low >=60 [facility] Comment on above: Order Comment: [...] actual GFR. Performed By: #### 1 9123-9, 61297-7, 3083-04 ####[facility] LABORATORYCLIA [id number] [address] Glucose [Mass/Vol] 151 mg/dL High 74-99 [facility] Comment on above: Order Comment: Luz vaughan Type: BLOOD SPECIMENOrdering Facility: External Submitter Address: , , Result Comment: The [place] [employer] Association (ADA) provides guidance for cutoff [...] Standards of Medical Care in Diabetes 2016, [place] [employer]. Diabetes Care. 2016.39(Suppl 1). Performed By: #### 1 9123-9, 23926-3, 3083-04 ####[facility] LABORATORYCLIA [id number] [place] [address] [place] Phosphate [Mass/Vol] 3.9 mg/dL Normal 2.7-4.8 [facility] Comment on above: Order Comment: Luz vaughan Type: BLOOD SPECIMENOrdering Facility: External Submitter Address: , , Performed By: #### 1 91239, , 3083-04 ####[facility] LABORATORYCLIA [id number] [place] [address] [place] Potassium [Moles/Vol] 4.9 mmol/L Normal 3.7-5.1 [facility] Comment on above: Order Comment: Luz vaughan Type: BLOOD SPECIMENOrdering Facility: External Submitter Address: , , Performed By: #### 1 9123-9, 74417-6, 3083-04 ####[facility] LABORATORYCLIA [id number] [place] [address] [place] Sodium [Moles/Vol] 142 mmol/L Normal 136-144 [facility] Comment on above: Order Comment: Luz vaughan Type: BLOOD SPECIMENOrdering Facility: External Submitter Address: , , Performed By: #### 1 9123-9, 24695-1, 3083-04 ####[facility] LABORATORYCLIA [id number] [place] [address] [place] Urea nitrogen [Mass/Vol] 47 mg/dL High 9-24 [facility] Comment on above: Order Comment: Luz vaughan Type: BLOOD SPECIMENOrdering Facility: External Submitter Address: , , Performed By: #### 1 9123-9, 40827-3, 3084-1 ####[facility] LABORATORYCLIA [id number] [address] [place] URINALYSIS, REFLEX MICROSCOP ICon 01-24-2024 Bilirubin Ql (U) Negative Normal Negative [facility] Comment on above: Order Comment: Speci men Type: URINE SPECIMENOrdering Facility: External Submitter Address: , , Performed By: #### L [id number] ####[facility] LABORATORYCLIA [id number] [address] Clarity (Unsp spec) Clear Normal [facility] Comment on above: Order Comment: Speci men Type: URINE SPECIMENOrdering Facility: External Submitter Address: , , Performed By: #### L [id number] ####[facility] LABORATORYCLIA [id number] [address] Color (U) Yellow Normal Yellow [facility] Comment on above: Order Comment: Speci men Type: URINE SPECIMENOrdering Facility: External Submitter Address: , , Performed By: #### L [id number] ####[facility] LABORATORYCLIA [id number] [address] Glucose Test strip (U) [Mass/Vol] 1+ Abnormal Negative [facility] Comment on above: Order Comment: Speci men Type: URINE SPECIMENOrdering Facility: External Submitter Address: , , Performed By: #### L [id number] ####[facility] LABORATORYCLIA [id number] [address] Granular casts (Urine sed) [#/Area] 1-3 /LPF Abnormal 0 /LPF [facility] Comment on above: Order Comment: Speci men Type: URINE SPECIMENOrdering Facility: External Submitter Address: , , Performed By: #### L [id number] ####[facility] LABORATORYCLIA [id number] [address] Hemoglobin Ql (U) 2+ Abnormal Negative [facility] Comment on above: Order Comment: Speci men Type: URINE SPECIMENOrdering Facility: External Submitter Address: , , Performed By: #### L [id number] ####[facility] LABORATORYCLIA [id number] [address] Ketones Ql (U) Negative Normal Negative [facility] Comment on above: Order Comment: Speci men Type: URINE SPECIMENOrdering Facility: External Submitter Address: , , Performed By: #### L [id number] ####[facility] LABORATORYCLIA [id number] [address] Leukocyte esterase Test strip Ql (U) Negative Normal Negative [facility] Comment on above: Order Comment: Speci men Type: URINE SPECIMENOrdering Facility: External Submitter Address: , , Performed By: #### L [id number] ####[facility] LABORATORYCLIA [id number] [address] Nitrite Ql (U) Negative Normal Negative [facility] Comment on above: Order Comment: Speci men Type: URINE SPECIMENOrdering Facility: External Submitter Address: , , Performed By: #### L [id number] ####[facility] LABORATORYCLIA [id number] [address] pH (U) 6.0 [pH] Normal 5.0-8.0 [facility] Comment on above: Order Comment: Speci men Type: URINE SPECIMENOrdering Facility: External Submitter Address: , , Performed By: #### L [id number] ####[facility] LABORATORYCLIA [id number] [address] Protein (U) [Mass/Vol] 3+ Abnormal Negative [facility] Comment on above: Order Comment: Speci men Type: URINE SPECIMENOrdering Facility: External Submitter Address: , , Performed By: #### L [id number] ####[facility] LABORATORYCLIA [id number] [address] RBC LM.HPF (Urine sed) [#/Area] 3-5 /HPF Abnormal 0-3 /HPF [facility] Comment on above: Order Comment: Speci men Type: URINE SPECIMENOrdering Facility: External Submitter Address: , , Performed By: #### L [id number] ####[facility] LABORATORYCLIA [id number] [address] [place] Specific gravity (U) [Rel density] 1.025 Normal 1.005-1.030 [facility] Comment on above: Order Comment: Speci men Type: URINE SPECIMENOrdering Facility: External Submitter Address: , , Performed By: #### L [id number] ####[facility] LABORATORYCLIA [id number] [address] [place] Urobilinogen Ql (U) 0.2 EU/dL Normal 0.2-1.0 EU/dL [facility] Comment on above: Order Comment: Speci men Type: URINE SPECIMENOrdering Facility: External Submitter Address: , , Performed By: #### L [id number] ####[facility] LABORATORYCLIA [id number] [address] [place] WBC LM.HPF (Urine sed) [#/Area] 0-5 /HPF Normal 0-5 /HPF [facility] Comment on above: Order Comment: Speci men Type: URINE SPECIMENOrdering Facility: External Submitter Address: , , Performed By: #### L [id number] ####[facility] LABORATORYCLIA [id number] [address] [place] Urate SerPl-mCncon Urate [Mass/Vol] 5.6 mg/dL Normal 4.0-8.1 [facility] Comment on above: Order Comment: Speci men Type: BLOOD SPECIMENOrdering Facility: External Submitter Address: , , Performed By: #### 1 9123-9, 60691-6, 3084-1 ####[facility] LABORATORYCLIA [id number] [place] [address] [place] CNPNon 12-22-2023 CNPN [facility] CNPNon 12-18-2023 CNPN [facility] [id number] 10-20-2023 [id number] [facility] CNDSon 10-20-2023 CNDS [facility] NURSING PROGon 10-20-2023 NURSING PROG [facility] SOCIAL WORKon 10-20-2023 SOCIAL WORK Normal [facility] SOCIAL WORK Normal [facility] POTASSIUMon 10-19-2023 Potassium [Moles/Vol] 4.6 mmol/L Normal 3.7-5.1 [facility] Comment on above: Order Comment: Speci men Type: BLOOD SPECIMENOrdering Facility: [facility] Address: [address] [place] [address] Performed By: #### K 1 ####[facility] LABCLIA [id number] [place] [address] [place] SOCIAL WORKon 10-19-2023 SOCIAL WORK Normal [facility] THERAPY NTon 10-19-2023 THERAPY NT Normal [facility] THERAPY NT Normal [facility] THERAPY NT Normal [facility] THERAPY NT Normal [facility] Basic metabolic 2000 panelon 10-18-2023 Anion gap [Moles/Vol] 9 mmol/L Normal 8-15 [facility] Comment on above: Order Comment: Speci men Type: BLOOD SPECIMENOrdering Facility: [facility] Address: [address] [place] [address] Performed By: #### 2 4321-2 ####[facility] LABCLIA [id number] [place] [address] [place] Calcium [Mass/Vol] 8.7 mg/dL Normal 8.5-10.2 [facility] Comment on above: Order Comment: Speci men Type: BLOOD SPECIMENOrdering Facility: [facility] Address: [address] [place] [address] Performed By: #### 2 4321-2 ####[facility] LABCLIA [id number] [place] [address] [place] Chloride [Moles/Vol] 105 mmol/L Normal 98-107 [facility] Comment on above: Order Comment: Speci men Type: BLOOD SPECIMENOrdering Facility: [facility] Address: [address] [place] [address] Performed By: #### 2 4321-2 ####[facility] LABCLIA [id number] [place] [address] [place] CO2 [Moles/Vol] 26 mmol/L Normal 22-30 [facility] Comment on above: Order Comment: Speci clement Type: BLOOD SPECIMENOrdering Facility: [facility] Address: [address] [place] [address] Performed By: #### 2 4321-2 ####[facility] LABCLIA [id number] [place] [address] [place] Creatinine [Mass/Vol] 2.26 mg/dL High 0.73-1.22 [facility] Comment on above: Order Comment: Speci men Type: BLOOD SPECIMENOrdering Facility: [facility] Address: [address] [place] [address] Performed By: #### 2 4321-2 ####[facility] LABCLIA [id number] [place] [address] [facility] Creatinine and Glomerular filtration rate.predicted panel (S/P/Bld) 32 mL/min/1.73m??? Low >=60 [facility] Comment on above: Order Comment: Speci men Type: BLOOD SPECIMENOrdering Facility: [facility] Address: [address] [place] [address] Result Comment: Breanne mated Glomerular Filtration Rate [...] Performed By: #### 2 4321-2 ####[facility] LABCLIA [id number] [place] [address] [place] Glucose [Mass/Vol] 100 mg/dL High 74-99 [facility] Comment on above: Order Comment: Speci men Type: BLOOD SPECIMENOrdering Facility: [facility] Address: [address] [place] [address] Result Comment: The [place] [employer] (ADA) provides guidance for cutoff [...] Standards of Medical Care in Diabetes 2016, [place] [employer]. Diabetes Care. 2016.39(Suppl 1). Performed By: #### 2 4321-2 ####[facility] LABCLIA [id number] [place] [address] [place] Potassium [Moles/Vol] 5.8 mmol/L High 3.7-5.1 [facility] Comment on above: Order Comment: Speci men Type: BLOOD SPECIMENOrdering Facility: [facility] Address: [address] [place] [address] Performed By: #### 2 4321-2 ####[facility] LABCLIA [id number] [place] [address] [place] Sodium [Moles/Vol] 140 mmol/L Normal 136-144 [facility] Comment on above: Order Comment: Speci men Type: BLOOD SPECIMENOrdering Facility: [facility] Address: [address] [place] [address] Performed By: #### 2 4321-2 ####[facility] LABCLIA [id number] [place] [address] [place] Urea nitrogen [Mass/Vol] 44 mg/dL High 9-24 [facility] Comment on above: Order Comment: Speci men Type: BLOOD SPECIMENOrdering Facility: [facility] Address: [address] [place] [address] Performed By: #### 2 4321-2 ####[facility] LABCLIA [id number] [place] [address] [facility] CBC panel Auto (Bld)on 10-17 Erythrocyte distribution width (RBC) [Ratio] 13.9 % Normal 11.5-15.0 [facility] Comment on above: Order Comment: Speci men Type: BLOOD SPECIMENOrdering Facility: [facility] Address: [address] [place] [address] Performed By: #### 5 8410-2 ####[facility] LABCLIA [id number] [place] [address] [facility] Hematocrit (Bld) [Volume fraction] 28.1 % Low 39.0-51.0 [facility] Comment on above: Order Comment: Speci men Type: BLOOD SPECIMENOrdering Facility: [facility] Address: [address] [place] [address] Performed By: #### 5 8410-2 ####[facility] LABCLIA [id number] [address] Hemoglobin (Bld) [Mass/Vol] 8.7 g/dL Low 13.0-17.0 [facility] Comment on above: Order Comment: Speci men Type: BLOOD SPECIMENOrdering Facility: [facility] Address: [address] [place] [address] Performed By: #### 5 8410-2 ####[facility] LABCLIA [id number] [place] [address] [facility] MCH (RBC) [Entitic mass] 27.4 pg Normal 26.0-34.0 [facility] Comment on above: Order Comment: Speci men Type: BLOOD SPECIMENOrdering Facility: [facility] Address: [address] [place] [address] Performed By: #### 5 8410-2 ####[facility] LABCLIA [id number] [place] [address] [place] MCHC (RBC) [Mass/Vol] 31.0 g/dL Normal 30.5-36.0 [facility] Comment on above: Order Comment: Speci men Type: BLOOD SPECIMENOrdering Facility: [facility] Address: [address] [place] [address] Performed By: #### 5 8410-2 ####[facility] LABCLIA [id number] [place] [address] [place] [facility] MCV (RBC) [Entitic vol] 88.4 fL Normal 80.0-100.0 [facility] Comment on above: Order Comment: Speci men Type: BLOOD SPECIMENOrdering Facility: [facility] Address: [address] [place] [address] Performed By: #### 5 8410-2 ####[facility] LABCLIA [id number] [place] [address] [place] Platelet mean volume (Bld) [Entitic vol] 8.6 fL Low 9.0-12.7 [facility] Comment on above: Order Comment: Speci men Type: BLOOD SPECIMENOrdering Facility: [facility] Address: [address] [place] [address] Performed By: #### 5 8410-2 ####[facility] LABCLIA [id number] [place] [address] [place] Platelets (Bld) [#/Vol] 438 10*3/uL High 150-400 [facility] Comment on above: Order Comment: Speci men Type: BLOOD SPECIMENOrdering Facility: [facility] Address: [address] [place] [address] Performed By: #### 5 8410-2 ####[facility] LABCLIA [id number] [place] [address] [place] RBC (Bld) [#/Vol] 3.18 10*6/uL Low 4.20-6.00 [facility] Comment on above: Order Comment: Speci men Type: BLOOD SPECIMENOrdering Facility: [facility] Address: [address] [place] [address] Performed By: #### 5 8410-2 ####[facility] LABCLIA [id number] [place] [address] [place] WBC (Bld) [#/Vol] 5.65 10*3/uL Normal 3.70-11.00 [facility] Comment on above: Order Comment: Speci men Type: BLOOD SPECIMENOrdering Facility: [facility] Address: [address] [place] [address] Performed By: #### 5 8410-2 ####[facility] LABCLIA [id number] [place] [address] [facility] [place] NURSING PROGon 10-18-2023 NURSING PROG Normal [facility] POTASSIUMon 10-18-2023 Potassium [Moles/Vol] 5.4 mmol/L High 3.7-5.1 [facility] Comment on above: Order Comment: Speci men Type: BLOOD SPECIMENOrdering Facility: [facility] Address: [address] [place] [address] Performed By: #### K 1 ####[facility] LABCLIA [id number] [place] [address] [facility] Potassium [Moles/Vol] 5.5 mmol/L High 3.7-5.1 [facility] Comment on above: Order Comment: Speci men Type: BLOOD SPECIMENOrdering Facility: [facility] Address: [address] [place] [address] Performed By: #### K 1 ####[facility] LABCLIA [id number] [place] [address] [facility] SOCIAL WORKon 10-18-2023 SOCIAL WORK Normal [facility] SOCIAL WORK Normal [facility] SOCIAL WORK Normal [facility] THERAPY NTon 10-18-2023 THERAPY NT Normal [facility] THERAPY NT Normal [facility] CASE MANAGEMon 10-17-2023 CASE MANAGEM Normal [facility] SOCIAL WORKon 10-17-2023 SOCIAL WORK Normal [facility] THERAPY NTon 10-17-2023 THERAPY NT Normal [facility] THERAPY NT Normal [facility] THERAPY NTon 10-16-2023 THERAPY NT Normal [facility] THERAPY NT Normal [facility] THERAPY NT Normal [facility] NURSING PROGon 10-15-2023 NURSING PROG Normal [facility] THERAPY NTon 10-14-2023 THERAPY NT Normal [facility] CASE MANAGEMon 10-13-2023 CASE MANAGEM Normal [facility] NUTRITIONon 10-13-2023 NUTRITION Normal [facility] THERAPY NTon 10-13-2023 THERAPY NT Normal [facility] THERAPY NT Normal [facility] SOCIAL WORKon 10-12-2023 SOCIAL WORK Normal [facility] THERAPY NTon 10-12-2023 THERAPY NT Normal [facility] THERAPY NT Normal [facility] NURSING PROGon 10-11-2023 NURSING PROG Normal [facility] THERAPY NTon 10-11-2023 THERAPY NT Normal [facility] THERAPY NT Normal [facility] CASE MGT INIT ASSESon 2023 CASE MGT INIT ASSES Normal [facility] NURSING PROGon 10-10-2023 NURSING PROG Normal [facility] NURSING PROG Normal [facility] SOCIAL WORKon 10-10-2023 SOCIAL WORK Normal [facility] THERAPY NTon 10-10-2023 THERAPY NT Normal [facility] THERAPY NT Normal [facility] Basic metabolic 2000 panelon 10-09-2023 Anion gap [Moles/Vol] 12 mmol/L Normal 8-15 [facility] Comment on above: Order Comment: Speci men Type: BLOOD SPECIMENOrdering Facility: [facility] Address: [address] [place] [address] Performed By: #### 2 4321-2, 2276-4, 21930-0, 2132-9, 2284-8 ####[facility] LABORATORYCLIA [id number] [place] [address] [place] Calcium [Mass/Vol] 8.7 mg/dL Normal 8.5-10.2 [facility] Comment on above: Order Comment: Speci men Type: BLOOD SPECIMENOrdering Facility: [facility] Address: [address] [place] [address] Performed By: #### 2 4321-2, 2276-4, 47536-0, 2131-9, 2283-8 ####[facility] LABORATORYCLIA [id number] [place] [address] [place] Chloride [Moles/Vol] 103 mmol/L Normal 98-107 [facility] Comment on above: Order Comment: Speci men Type: BLOOD SPECIMENOrdering Facility: [facility] Address: [address] [place], [place] [address] Performed By: #### 2 4321-2, 6-4, 29049-4, 2131-9, 2283-8 ####[facility] LABORATORYCLIA [id number] [place] [address] [place] CO2 [Moles/Vol] 26 mmol/L Normal 22-30 [facility] Comment on above: Order Comment: Speci men Type: BLOOD SPECIMENOrdering Facility: [facility] Address: [address] [place], [place] [address] Performed By: #### 2 4321-2, 2276-4, 66317-9, 2131-9, 2283-8 ####[facility] LABORATORYCLIA [id number] [place] [address] [place] Creatinine [Mass/Vol] 2.35 mg/dL High 0.73-1.22 [facility] Comment on above: Order Comment: Speci men Type: BLOOD SPECIMENOrdering Facility: [facility] Address: [address] [place] [address] Performed By: #### 2 4321-2, 2276-4, 46359-1, 2131-9, 2283-8 ####[facility] LABORATORYCLIA [id number] [place] [address] [facility] Creatinine and Glomerular filtration rate.predicted panel (S/P/Bld) 30 mL/min/1.73m??? Low >=60 [facility] Comment on above: Order Comment: Speci men Type: BLOOD SPECIMENOrdering Facility: [facility] Address: [address] [place] [address] Result Comment: Breanne mated Glomerular Filtration Rate [...] GFR. Performed By: #### 2 4321-2, 6-4, 93863-9, 2131-12, 2283-11 ####[facility] LABORATORYCLIA [id number] [place] [address] [place] Glucose [Mass/Vol] 149 mg/dL High 74-99 [facility] Comment on above: Order Comment: Luz vaughan Type: BLOOD SPECIMENOrdering Facility: [facility] Address: [address] [place] [address] Result Comment: The [place] [employer] (ADA) provides guidance for cutoff [...] Standards of Medical Care in Diabetes 2016, [place] [employer]. Diabetes Care. 2016.39(Suppl 1). Performed By: #### 2 4321-2, 6-4, 59720-8, 2131-12, 2283-11 ####[facility] LABORATORYCLIA [id number] [place] [address] [place] Potassium [Moles/Vol] 5.4 mmol/L High 3.7-5.1 [facility] Comment on above: Order Comment: Luz vaughan Type: BLOOD SPECIMENOrdering Facility: [facility] Address: [address] [place], [place] [address] Performed By: #### 2 4321-2, 6-4, 20153-6, 2131-12, 2283-11 ####[facility] LABORATORYCLIA [id number] [place] [address] [place] Sodium [Moles/Vol] 141 mmol/L Normal 136-144 [facility] Comment on above: Order Comment: Speci men Type: BLOOD SPECIMENOrdering Facility: [facility] Address: [address] [place] [address] Performed By: #### 2 4321-2, 2275-4, 65508-6, 9, 2283-11 ####[facility] LABORATORYCLIA [id number] [place] [address] [place] Urea nitrogen [Mass/Vol] 42 mg/dL High 9- [facility] Comment on above: Order Comment: Speci men Type: BLOOD SPECIMENOrdering Facility: [facility] Address: [address] [place] [address] Performed By: #### 2 4321-2, 2275-4, 31008-0, 2131-12, 2283-11 ####[facility] LABORATORYCLIA [id number] [place] [address] [place] CASE MANAGEMon 10-09-2023 CASE MANAGEM Normal [facility] CBC panel Auto (Bld)on 10-08 Erythrocyte distribution width (RBC) [Ratio] 13.5 % Normal 11.5-15.0 [facility] Comment on above: Order Comment: Speci men Type: BLOOD SPECIMENOrdering Facility: [facility] Address: [address] [place], [place] [address] Performed By: #### 5 8410-2 ####[facility] LABCLIA [id number] [place] [address] [place] Hematocrit (Bld) [Volume fraction] 30.2 % Low 39.0-51.0 [facility] Comment on above: Order Comment: Speci men Type: BLOOD SPECIMENOrdering Facility: [facility] Address: [address] [place] [address] Performed By: #### 5 8410-2 ####[facility] LABCLIA [id number] [place] [address] [facility] Hemoglobin (Bld) [Mass/Vol] 9.3 g/dL Low 13.0-17.0 [facility] Comment on above: Order Comment: Speci men Type: BLOOD SPECIMENOrdering Facility: [facility] Address: [address] [place] [address] Performed By: #### 5 8410-2 ####[facility] LABCLIA [id number] [place] [address] [facility] MCH (RBC) [Entitic mass] 27.4 pg Normal 26.0-34.0 [facility] Comment on above: Order Comment: Speci men Type: BLOOD SPECIMENOrdering Facility: [facility] Address: [address] [place] [address] Performed By: #### 5 8410-2 ####[facility] LABCLIA [id number] [place], [place] [id number] [place] [address] MCHC (RBC) [Mass/Vol] 30.8 g/dL Normal 30.5-36.0 [facility] Comment on above: Order Comment: Speci men Type: BLOOD SPECIMENOrdering Facility: [facility] Address: [address] [place] [address] Performed By: #### 5 8410-2 ####[facility] LABCLIA [id number] [place] [address] [place] [facility] MCV (RBC) [Entitic vol] 89.1 fL Normal 80.0-100.0 [facility] Comment on above: Order Comment: Speci men Type: BLOOD SPECIMENOrdering Facility: [facility] Address: [address] [place] [address] Performed By: #### 5 8410-2 ####[facility] LABCLIA [id number] [place] [address] [facility] Platelet mean volume (Bld) [Entitic vol] 8.9 fL Low 9.0-12.7 [facility] Comment on above: Order Comment: Speci men Type: BLOOD SPECIMENOrdering Facility: [facility] Address: [address] [place] [address] Performed By: #### 5 8410-2 ####[facility] LABCLIA [id number] [place] [address] [facility] Platelets (Bld) [#/Vol] 315 10*3/uL Normal 150-400 [facility] Comment on above: Order Comment: Speci men Type: BLOOD SPECIMENOrdering Facility: [facility] Address: [address] [place] [address] Performed By: #### 5 8410-2 ####[facility] LABCLIA [id number] [place] [address] [place] [facility] RBC (Bld) [#/Vol] 3.39 10*6/uL Low 4.20-6.00 [facility] Comment on above: Order Comment: Speci men Type: BLOOD SPECIMENOrdering Facility: [facility] Address: [address] [place] [address] Performed By: #### 5 8410-2 ####[facility] LABCLIA [id number] [place] [address] [facility] [place] WBC (Bld) [#/Vol] 7.71 10*3/uL Normal 3.70-11.00 [facility] Comment on above: Order Comment: Speci men Type: BLOOD SPECIMENOrdering Facility: [facility] Address: [address] [place] [address] Performed By: #### 5 8410-2 ####[facility] LABCLIA [id number] [place] [address] [facility] Ferritin SerPl-mCncon 2023 Ferritin [Mass/Vol] 712.0 ng/mL High 30.3-565.7 [facility] Comment on above: Order Comment: Speci men Type: BLOOD SPECIMENOrdering Facility: [facility] Address: [address] [place] [address] [place] [address] Performed By: #### 2 4321-2, 6-4, 94383-5, 9, 8 ####[facility] LABORATORYCLIA [id number] [place], [place] [id number] [place] [address] [place] [facility] Folate SerPl-ncon 10-09-19 24 Folate [Mass/Vol] 7.0 ng/mL Normal >4.7 [facility] Comment on above: Order Comment: Speci men Type: BLOOD SPECIMENOrdering Facility: [facility] Address: [address] [place], [place] [address] Performed By: #### 2 4321-2, 6-4, 61660-8, 2131-12, 2283-11 ####[facility] LABORATORYCLIA [id number] [address] [place] Iron and Iron binding capaci panelon 10-09-2023 Iron [Mass/Vol] 23 ug/dL Low 41-186 [facility] Comment on above: Order Comment: Speci men Type: BLOOD SPECIMENOrdering Facility: [facility] Address: [address] [place] [address] Performed By: #### 2 4321-2, 6-4, 96400-2, 2131-12, 2283-11 ####[facility] LABORATORYCLIA [id number] [address] [place] Iron binding capacity [Mass/Vol] 165 ug/dL Low 232-386 [facility] Comment on above: Order Comment: Speci men Type: BLOOD SPECIMENOrdering Facility: [facility] Address: [address] [place] [address] Performed By: #### 2 4321-2, 6-4, 79713-8, 2131-12, 2283-11 ####[facility] LABORATORYCLIA [id number] [address] [place] [facility] Iron saturation [Mass fraction] 13.9 % Low 15.0-57.0 [facility] Comment on above: Order Comment: Speci men Type: BLOOD SPECIMENOrdering Facility: [facility] Address: [address] [place] [address] Performed By: #### 2 4321-2, 6-4, 59283-4, 2131-12, 2283-11 ####[facility] LABORATORYCLIA [id number] [place] [address] [place] SOCIAL WORKon 10-09-2023 SOCIAL WORK Normal [facility] THERAPY NTon 10-09-2023 THERAPY NT Normal [facility] THERAPY NT Normal [facility] THERAPY NT Normal [facility] Vit B12 SerPl-mCncon 024 Cobalamin (Vitamin B12) [Mass/Vol] 574 pg/mL Normal 232-1245 [facility] Comment on above: Order Comment: Speci men Type: BLOOD SPECIMENOrdering Facility: [facility] Address: [address] [place], [place] [address] Performed By: #### 2 4321-2, 2275-4, 08158-8, 2131-12, 2283-11 ####[facility] LABORATORYCLIA [id number] [place] [address] [place] THERAPY NTon 10-08-2023 THERAPY NT Normal [facility] THERAPY NTon 10-07-2023 THERAPY NT Normal [facility] Basic metabolic 2000 panelon 10-06-2023 Anion gap [Moles/Vol] 10 mmol/L Normal 8-15 [facility] Comment on above: Order Comment: Speci men Type: BLOOD SPECIMENOrdering Facility: [facility] Address: [address] [place] [address] Performed By: #### 2 4321-2 ####[facility] LABCLIA [id number] [place] [address] [place] Calcium [Mass/Vol] 8.9 mg/dL Normal 8.5-10.2 [facility] Comment on above: Order Comment: Speci men Type: BLOOD SPECIMENOrdering Facility: [facility] Address: [address] [place] [address] Performed By: #### 2 4321-2 ####[facility] LABCLIA [id number] [place] [address] [place] Chloride [Moles/Vol] 104 mmol/L Normal 98-107 [facility] Comment on above: Order Comment: Speci men Type: BLOOD SPECIMENOrdering Facility: [facility] Address: [address] [place] [address] Performed By: #### 2 4321-2 ####[facility] LABCLIA [id number] [place] [address] [place] CO2 [Moles/Vol] 27 mmol/L Normal 22-30 [facility] Comment on above: Order Comment: Speci men Type: BLOOD SPECIMENOrdering Facility: [facility] Address: [address] [place] [address] Performed By: #### 2 4321-2 ####[facility] LABCLIA [id number] [place] [address] [place] Creatinine [Mass/Vol] 2.00 mg/dL High 0.73-1.22 [facility] Comment on above: Order Comment: Speci men Type: BLOOD SPECIMENOrdering Facility: [facility] Address: [address] [place] [address] Performed By: #### 2 4321-2 ####[facility] LABCLIA [id number] [place] [address] [facility] Creatinine and Glomerular filtration rate.predicted panel (S/P/Bld) 37 mL/min/1.73m??? Low >=60 [facility] Comment on above: Order Comment: Speci men Type: BLOOD SPECIMENOrdering Facility: [facility] Address: [address] [place] [address] Result Comment: Breanne mated Glomerular Filtration Rate [...] actual GFR. Performed By: #### 2 4321-2 ####[facility] LABCLIA [id number] [place] [address] [place] Glucose [Mass/Vol] 180 mg/dL High 74-99 [facility] Comment on above: Order Comment: Luz clement Type: BLOOD SPECIMENOrdering Facility: [facility] Address: [address] [place] [address] Result Comment: The [place] Diabetes Association (ADA) provides guidance for cutoff [...] Standards of Medical Care in Diabetes 2016, [place] Diabetes Association. Diabetes Care. 2016.39(Suppl 1). Performed By: #### 2 4321-2 ####[facility] LABCLIA [id number] [place] [address] [place] Potassium [Moles/Vol] 4.5 mmol/L Normal 3.7-5.1 [facility] Comment on above: Order Comment: Luz clement Type: BLOOD SPECIMENOrdering Facility: [facility] Address: [address] [place] [address] Performed By: #### 2 4321-2 ####[facility] LABCLIA [id number] [place] [address] [place] Sodium [Moles/Vol] 141 mmol/L Normal 136-144 [facility] Comment on above: Order Comment: Luz clement Type: BLOOD SPECIMENOrdering Facility: [facility] Address: [address] [place] [address] Performed By: #### 2 4321-2 ####[facility] LABCLIA [id number] [place] [address] [place] Urea nitrogen [Mass/Vol] 32 mg/dL High 9-24 [facility] Comment on above: Order Comment: Speci men Type: BLOOD SPECIMENOrdering Facility: [facility] Address: [address] [place] [address] Performed By: #### 2 4321-2 ####[facility] LABCLIA [id number] [facility] [place] [address] [facility] CBC panel Auto (Bld)on 10-05 Erythrocyte distribution width (RBC) [Ratio] 13.5 % Normal 11.5-15.0 [facility] Comment on above: Order Comment: Speci men Type: BLOOD SPECIMENOrdering Facility: [facility] Address: [address] [place] [address] Performed By: #### 5 8410-2 ####[facility] LABCLIA [id number] [place] [address] [facility] Hematocrit (Bld) [Volume fraction] 31.5 % Low 39.0-51.0 [facility] Comment on above: Order Comment: Speci men Type: BLOOD SPECIMENOrdering Facility: [facility] Address: [address] [place] [address] Performed By: #### 5 8410-2 ####[facility] LABCLIA [id number] [place] [address] [facility] Hemoglobin (Bld) [Mass/Vol] 9.9 g/dL Low 13.0-17.0 [facility] Comment on above: Order Comment: Speci men Type: BLOOD SPECIMENOrdering Facility: [facility] Address: [address] [place] [address] Performed By: #### 5 8410-2 ####[facility] LABCLIA [id number] [facility] [place] [address] [place] MCH (RBC) [Entitic mass] 27.3 pg Normal 26.0-34.0 [facility] Comment on above: Order Comment: Speci men Type: BLOOD SPECIMENOrdering Facility: [facility] Address: [address] [place] [address] Performed By: #### 5 8410-2 ####[facility] LABCLIA [id number] [place] [address] [place] [facility] MCHC (RBC) [Mass/Vol] 31.4 g/dL Normal 30.5-36.0 [facility] Comment on above: Order Comment: Speci men Type: BLOOD SPECIMENOrdering Facility: [facility] Address: [address] [place] [address] Performed By: #### 5 8410-2 ####[facility] LABCLIA [id number] [place] [address] [place] MCV (RBC) [Entitic vol] 86.8 fL Normal 80.0-100.0 [facility] Comment on above: Order Comment: Speci men Type: BLOOD SPECIMENOrdering Facility: [facility] Address: [address] [place] [address] Performed By: #### 5 8410-2 ####[facility] LABCLIA [id number] [place] [address] [place] Platelet mean volume (Bld) [Entitic vol] 8.4 fL Low 9.0-12.7 [facility] Comment on above: Order Comment: Speci men Type: BLOOD SPECIMENOrdering Facility: [facility] Address: [address] [place] [address] Performed By: #### 5 8410-2 ####[facility] LABCLIA [id number] [place] [address] [place] Platelets (Bld) [#/Vol] 345 10*3/uL Normal 150-400 [facility] Comment on above: Order Comment: Speci men Type: BLOOD SPECIMENOrdering Facility: [facility] Address: [address] [place] [address] Performed By: #### 5 8410-2 ####[facility] LABCLIA [id number] [place] [address] [place] RBC (Bld) [#/Vol] 3.63 10*6/uL Low 4.20-6.00 [facility] Comment on above: Order Comment: Luz vaughan Type: BLOOD SPECIMENOrdering Facility: [facility] Address: [address] [place] [address] Performed By: #### 5 8410-2 ####[facility] LABCLIA [id number] [place] [id number] [facility] [place] WBC (Bld) [#/Vol] 9.66 10*3/uL Normal 3.70-11.00 [facility] Comment on above: Order Comment: Luz vaughan Type: BLOOD SPECIMENOrdering Facility: [facility] Address: [address] [place] [address] Performed By: #### 5 8410-2 ####[facility] LABIA [id number] [place] [id number] [facility] HbA1c (Bld)on 10-06-2023 Average glucose Estimated from glycated hemoglobin (Bld) [Mass/Vol] 126 mg/dL Normal [facility] Comment on above: Order Comment: Luz vaughan Type: BLOOD SPECIMENOrdering Facility: [facility] Address: [address] [place] [address] Result Comment: eAG: (Estimated average glucose) is a calculated value from HgbA1c and is human resources representative of the average blood glucose level in the last 2-3 month period. Performed By: #### 5 5454-3 ####[facility] LABCLIA [id number] [facility] [address] [place] HbA1c (Bld) [Mass fraction] 6.0 % High 4.3-5.6 [facility] Comment on above: Order Comment: Luz vaughan Type: BLOOD SPECIMENOrdering Facility: [facility] Address: [address] [place] [address] Result Comment: [place] Diabetes Association guidelines indicate that patients with HgbA1c in the range 5.7-6.4% are at increased risk for development of diabetes, and intervention by lifestyle modification may be beneficial. HgbA1c greater or equal to 6.5% is considered diagnostic of diabetes. Performed By: #### 5 5454-3 ####[facility] LABCLIA [id number] [place] [address], [place] [address] [place] NUTRITIONon 10-06-2023 NUTRITION Normal [facility] THERAPY NTon 10-06-2023 THERAPY NT Normal [facility] THERAPY NT Normal [facility] HISTORY PHYSICALon HISTORY PHYSICAL Normal [facility] THERAPY NTon 10-04-2023 THERAPY NT Normal [facility] CNPNon 08-01-2023 CNPN Normal [facility] CNOVon 07-12-2023 CNOV Normal [facility] UA DIP, URINE (POC)on 2023 BILIRUBIN UA (POCT) Negative Negative [facility] CLARITY UA (POCT) Clear [facility] COLOR UA (POCT) Yellow [facility] GLUCOSE UA (POCT) Negative Negative mg/dL [facility] Hemoglobin Ql (U) Trace-intact Abnormal Negative [facility] KETONE UA (POCT) Negative Negative mg/dL [facility] LEUKOCYTES UA (POCT) Negative Negative [facility] NITRITE UA (POCT) Negative Negative [facility] PH UA (POCT) 5.5 4.5 - 8.0 [facility] Protein Ql (U) >=300 Abnormal Negative mg/dL [facility] SPECIFIC GRAVITY UA (POCT) >=1.030 1.005 - 1.030 [facility] UROBILINOGEN UA (POCT) 0.2 E.U./dL Normal E.U./dL [facility] Basic metabolic 2000 panelon 06-13-2023 Anion gap [Moles/Vol] 10 mmol/L Normal 9-18 [facility] Comment on above: Order Comment: Speci men Type: BLOOD SPECIMENOrdering Facility: [facility] Address: [address] [place] [address] Performed By: #### 2 4321-2 ####[facility] LABCLIA [id number] [facility] [place] [address] [place] Calcium [Mass/Vol] 8.6 mg/dL Normal 8.5-10.2 [facility] Comment on above: Order Comment: Speci men Type: BLOOD SPECIMENOrdering Facility: [facility] Address: [address] [place] [address] Performed By: #### 2 4321-2 ####[facility] LABCLIA [id number] [place] [address] [place] Chloride [Moles/Vol] 105 mmol/L Normal 97-105 [facility] Comment on above: Order Comment: Speci men Type: BLOOD SPECIMENOrdering Facility: [facility] Address: [address] [place] [address] Performed By: #### 2 4321-2 ####[facility] LABCLIA [id number] [place] [address] [place] CO2 [Moles/Vol] 26 mmol/L Normal 22-30 [facility] Comment on above: Order Comment: Speci men Type: BLOOD SPECIMENOrdering Facility: [facility] Address: [address] [place] [address] Performed By: #### 2 4321-2 ####[facility] LABCLIA [id number] [place] [address] [place] Creatinine [Mass/Vol] 2.17 mg/dL High 0.73-1.22 [facility] Comment on above: Order Comment: Speci men Type: BLOOD SPECIMENOrdering Facility: [facility] Address: [address] [place] [address] Performed By: #### 2 4321-2 ####[facility] LABCLIA [id number] [place] [address] [facility] Creatinine and Glomerular filtration rate.predicted panel (S/P/Bld) 33 mL/min/1.73m??? Low >=60 [facility] Comment on above: Order Comment: Speci men Type: BLOOD SPECIMENOrdering Facility: [facility] Address: [address] [place], [place] [address] Result Comment: Breanne mated Glomerular Filtration Rate [...] actual GFR. Performed By: #### 2 4321-2 ####[facility] LABCLIA [id number] [place] [address] [place] Glucose [Mass/Vol] 158 mg/dL High 74-99 [facility] Comment on above: Order Comment: Luz vaughan Type: BLOOD SPECIMENOrdering Facility: [facility] Address: [address] [place] [address] Result Comment: The [place] Diabetes Association (ADA) provides guidance for cutoff [...] Standards of Medical Care in Diabetes 2016, [place] Diabetes Association. Diabetes Care. 2016.39(Suppl 1). Performed By: #### 2 4321-2 ####[facility] LABCLIA [id number] [place] [address] [place] Potassium [Moles/Vol] 4.7 mmol/L Normal 3.7-5.1 [facility] Comment on above: Order Comment: Luz vaughan Type: BLOOD SPECIMENOrdering Facility: [facility] Address: [address] [place] [id number] Performed By: #### 2 4321-2 ####[facility] LABCLIA [id number] [place] [address] [place] Sodium [Moles/Vol] 141 mmol/L Normal 136-144 [facility] Comment on above: Order Comment: Speci men Type: BLOOD SPECIMENOrdering Facility: [facility] Address: [address] [place], [place] [address] Performed By: #### 2 4321-2 ####[facility] LABCLIA [id number] [place] [address] [place] Urea nitrogen [Mass/Vol] 46 mg/dL High 9-24 [facility] Comment on above: Order Comment: Speci men Type: BLOOD SPECIMENOrdering Facility: [facility] Address: [address] [place] [address] Performed By: #### 2 4321-2 ####[facility] LABCLIA [id number] [place] [address] [place] CNDSon 06-13-2023 CNDS Normal [facility] Albumin SerPl-mCncon 024 Albumin [Mass/Vol] 3.0 g/dL Low 3.9-4.9 [facility] Comment on above: Order Comment: Speci men Type: BLOOD SPECIMENOrdering Facility: [facility] Address: [address] [place] [address] Performed By: #### 1 751-7, 33014-2, 2777-1 ####[facility] LABCLIA [id number] [place] [address] [place] Basic metabolic 2000 panelon 06-12-2023 Anion gap [Moles/Vol] 9 mmol/L Normal 9-18 [facility] Comment on above: Order Comment: Speci men Type: BLOOD SPECIMENOrdering Facility: [facility] Address: [address] [place] [address] Performed By: #### 1 751-7, 68784-7, 2777-1 ####[facility] LABCLIA [id number] [facility] [place] [address] [place] Calcium [Mass/Vol] 8.9 mg/dL Normal 8.5-10.2 [facility] Comment on above: Order Comment: Speci men Type: BLOOD SPECIMENOrdering Facility: [facility] Address: [address] [place] [address] Performed By: #### 1 751-7, 73424-8, 2776- ####[facility] LABCLIA [id number] [facility] [place] [address] [place] Chloride [Moles/Vol] 107 mmol/L High 97-105 [facility] Comment on above: Order Comment: Speci men Type: BLOOD SPECIMENOrdering Facility: [facility] Address: [address] [place] [address] Performed By: #### 1 751-7, 79763-0, 2776-04 ####[facility] LABCLIA [id number] [place] [address] [place] CO2 [Moles/Vol] 28 mmol/L Normal 22-30 [facility] Comment on above: Order Comment: Speci men Type: BLOOD SPECIMENOrdering Facility: [facility] Address: [address] [place] [address] Performed By: #### 1 751-7, 65593-1, 2776-04 ####[facility] LABCLIA [id number] [place] [address] [place] Creatinine [Mass/Vol] 2.34 mg/dL High 0.73-1.22 [facility] Comment on above: Order Comment: Speci men Type: BLOOD SPECIMENOrdering Facility: [facility] Address: [address] [place] [address] Performed By: #### 1 751-7, 65574-8, 2776- ####[facility] LABCLIA [id number] [place] [address] [facility] Creatinine and Glomerular filtration rate.predicted panel (S/P/Bld) 30 mL/min/1.73m??? Low >=60 [facility] Comment on above: Order Comment: Speci men Type: BLOOD SPECIMENOrdering Facility: [facility] Address: [address] [place] [address] Result Comment: Breanne mated Glomerular Filtration Rate [...] actual GFR. Performed By: #### 1 751-7, 60280-0, 2776- ####[facility] LABIA [id number] [place] [address] [place] Glucose [Mass/Vol] 148 mg/dL High 74-99 [facility] Comment on above: Order Comment: Luz vaughan Type: BLOOD SPECIMENOrdering Facility: [facility] Address: [address] [place] [address] Result Comment: The [place] Diabetes Association (ADA) provides guidance for cutoff [...] Standards of Medical Care in Diabetes 2016, [place] [employer]. Diabetes Care. 2016.39(Suppl 1). Performed By: #### 1 751-7, 08558-2, 2776-04 ####[facility] LABIA [id number] [place] [address] [place] Potassium [Moles/Vol] 5.6 mmol/L High 3.7-5.1 [facility] Comment on above: Order Comment: Luz vaughan Type: BLOOD SPECIMENOrdering Facility: [facility] Address: [address] [place] [address] Performed By: #### 1 751-7, 09832-4, 2777- ####[facility] LABCLIA [id number] [facility] [place] [address] [place] Sodium [Moles/Vol] 144 mmol/L Normal 136-144 [facility] Comment on above: Order Comment: Speci men Type: BLOOD SPECIMENOrdering Facility: [facility] Address: [address] [place] [address] Performed By: #### 1 751-7, 59923-3, 2777- ####[facility] LABCLIA [id number] [place] [address] [place] Urea nitrogen [Mass/Vol] 47 mg/dL High 9-24 [facility] Comment on above: Order Comment: Speci men Type: BLOOD SPECIMENOrdering Facility: [facility] Address: [address] [place] [address] Performed By: #### 1 751-7, 55397-0, 27710-01 ####[facility] LABCLIA [id number] [place] [address] [place] CASE MANAGEMon 06-12-2023 CASE MANAGEM Normal [facility] HISTORY PHYSICALon HISTORY PHYSICAL Normal [facility] POTASSIUM BLDon 06-12-2023 Potassium [Moles/Vol] 4.5 mmol/L Normal 3.7-5.1 [facility] Comment on above: Order Comment: Speci men Type: BLOOD SPECIMENOrdering Facility: [facility] Address: [address] [place] [address] Performed By: #### K 1 ####[facility] LABCLIA [id number] [place] [address] [place] Potassium [Moles/Vol] 5.8 mmol/L High 3.7-5.1 [facility] Comment on above: Order Comment: Speci men Type: BLOOD SPECIMENOrdering Facility: [facility] Address: [address] [place] [address] Performed By: #### K 1 ####[facility] [place] LABCLIA [id number] [place] [address] [facility] [place] Phosphate SerPl-mCncon 06-11 Phosphate [Mass/Vol] 4.6 mg/dL Normal 2.7-4.8 [facility] Comment on above: Order Comment: Speci men Type: BLOOD SPECIMENOrdering Facility: [facility] Address: [address] [place] [address] Performed By: #### 1 751-7, 32256-4, 2777-1 ####[facility] [place] LABCLIA [id number] [place] [address] [facility] THERAPY NTon 06-12-2023 THERAPY NT Normal [facility] THERAPY NT Normal [facility] Basic metabolic 2000 panelon 06-11-2023 Anion gap [Moles/Vol] 8 mmol/L Low 9-18 [facility] Comment on above: Order Comment: Speci men Type: BLOOD SPECIMENOrdering Facility: [facility] Address: [address] [place] [address] Performed By: #### 2 4321-2 ####[facility] LABCLIA [id number] [place] [address] [place] Calcium [Mass/Vol] 8.7 mg/dL Normal 8.5-10.2 [facility] Comment on above: Order Comment: Speci men Type: BLOOD SPECIMENOrdering Facility: [facility] Address: [address] [place] [address] Performed By: #### 2 4321-2 ####[facility] LABCLIA [id number] [place] [address] [place] Chloride [Moles/Vol] 106 mmol/L High 97-105 [facility] Comment on above: Order Comment: Speci men Type: BLOOD SPECIMENOrdering Facility: [facility] Address: [address] [place] [address] Performed By: #### 2 4321-2 ####[facility] [place] LABCLIA [id number] [place] [address] [place] CO2 [Moles/Vol] 28 mmol/L Normal 22-30 [facility] Comment on above: Order Comment: Speci men Type: BLOOD SPECIMENOrdering Facility: [facility] Address: [address] [place] [address] Performed By: #### 2 4321-2 ####[facility] LABCLIA [id number] [place] [address] [place] Creatinine [Mass/Vol] 2.24 mg/dL High 0.73-1.22 [facility] Comment on above: Order Comment: Speci men Type: BLOOD SPECIMENOrdering Facility: [facility] Address: [address] [place] [address] Performed By: #### 2 4321-2 ####[facility] LABCLIA [id number] [place] [address] [facility] Creatinine and Glomerular filtration rate.predicted panel (S/P/Bld) 32 mL/min/1.73m??? Low >=60 [facility] Comment on above: Order Comment: Speci men Type: BLOOD SPECIMENOrdering Facility: [facility] Address: [address] [place] [address] Result Comment: Breanne mated Glomerular Filtration Rate [...] actual GFR. Performed By: #### 2 4321-2 ####[facility] LABCLIA [id number] [place] [address] [place] Glucose [Mass/Vol] 126 mg/dL High 74-99 [facility] Comment on above: Order Comment: Speci men Type: BLOOD SPECIMENOrdering Facility: [facility] Address: [address] [place] [address] Result Comment: The [place] Diabetes Association (ADA) provides guidance for cutoff [...] Standards of Medical Care in Diabetes 2016, [place] [employer]. Diabetes Care. 2016.39(Suppl 1). Performed By: #### 2 4321-2 ####[facility] LABCLIA [id number] [place] [address] [place] Potassium [Moles/Vol] 4.9 mmol/L Normal 3.7-5.1 [facility] Comment on above: Order Comment: Speci men Type: BLOOD SPECIMENOrdering Facility: [facility] Address: [address] [place] [address] Performed By: #### 2 4321-2 ####[facility] LABCLIA [id number] [place] [id number] [place] Sodium [Moles/Vol] 142 mmol/L Normal 136-144 [facility] Comment on above: Order Comment: Brooksi men Type: BLOOD SPECIMENOrdering Facility: [facility] Address: [address] [place] [address] Performed By: #### 2 4321-2 ####[facility] LABCLIA [id number] [place] [address] [place] Urea nitrogen [Mass/Vol] 45 mg/dL High 9-24 [facility] Comment on above: Order Comment: Brooksi men Type: BLOOD SPECIMENOrdering Facility: [facility] Address: [address] [place] [address] Performed By: #### 2 4321-2 ####[facility] [place] LABCLIA [id number] [place] [address] [place] CNDSon 06-11-2023 CNDS Normal [facility] NURSING PROGon 06-10-2023 NURSING PROG Normal [facility] NURSING PROG Normal [facility] Basic metabolic 2000 panelon 06-09-2023 Anion gap [Moles/Vol] 9 mmol/L Normal 9-18 [facility] Comment on above: Order Comment: Speci men Type: BLOOD SPECIMENOrdering Facility: [facility] Address: [address] [place] [address] Performed By: #### 2 4321-2 ####[facility] [place] LABCLIA [id number] [facility] [place] [address] [place] Calcium [Mass/Vol] 8.7 mg/dL Normal 8.5-10.2 [facility] Comment on above: Order Comment: Speci men Type: BLOOD SPECIMENOrdering Facility: [facility] Address: [address] [place] [address] Performed By: #### 2 4321-2 ####[facility] [place] LABCLIA [id number] [facility] [place] [address] [place] Chloride [Moles/Vol] 105 mmol/L Normal 97-105 [facility] Comment on above: Order Comment: Speci men Type: BLOOD SPECIMENOrdering Facility: [facility] Address: [address] [place] [address] Performed By: #### 2 4321-2 ####[facility] [place] LABCLIA [id number] [place] [address] [place] CO2 [Moles/Vol] 27 mmol/L Normal 22-30 [facility] Comment on above: Order Comment: Speci men Type: BLOOD SPECIMENOrdering Facility: [facility] Address: [address] [place] [address] Performed By: #### 2 4321-2 ####[facility] [place] LABCLIA [id number] [facility] [place] [address] [place] Creatinine [Mass/Vol] 2.25 mg/dL High 0.73-1.22 [facility] Comment on above: Order Comment: Luz clement Type: BLOOD SPECIMENOrdering Facility: [facility] Address: [address] [place] [address] Performed By: #### 2 4321-2 ####[facility] LABCLIA [id number] [place] [address] [place] Creatinine and Glomerular filtration rate.predicted panel (S/P/Bld) 32 mL/min/1.73m??? Low >=60 [facility] Comment on above: Order Comment: Luz vaughan Type: BLOOD SPECIMENOrdering Facility: [facility] Address: [address] [place] [address] Result Comment: Breanne mated Glomerular Filtration Rate [...] actual GFR. Performed By: #### 2 4321-2 ####[facility] LABCLIA [id number] [place] [address] [place] Glucose [Mass/Vol] 151 mg/dL High 74-99 [facility] Comment on above: Order Comment: Luz clement Type: BLOOD SPECIMENOrdering Facility: [facility] Address: [address] [place] [address] Result Comment: The [place] Diabetes Association (ADA) provides guidance for cutoff [...] Standards of Medical Care in Diabetes 2016, [place] [employer]. Diabetes Care. 2016.39(Suppl 1). Performed By: #### 2 4321-2 ####[facility] LABCLIA [id number] [place] [address] [place] Potassium [Moles/Vol] 5.0 mmol/L Normal 3.7-5.1 [facility] Comment on above: Order Comment: Speci men Type: BLOOD SPECIMENOrdering Facility: [facility] Address: [address] [place] [address] Performed By: #### 2 4321-2 ####[facility] LABCLIA [id number] [place] [address] [place] Sodium [Moles/Vol] 141 mmol/L Normal 136-144 [facility] Comment on above: Order Comment: Speci men Type: BLOOD SPECIMENOrdering Facility: [facility] Address: [address] [place] [address] Performed By: #### 2 4321-2 ####[facility] LABCLIA [id number] [place] [address] [place] Urea nitrogen [Mass/Vol] 48 mg/dL High 9-24 [facility] Comment on above: Order Comment: Speci men Type: BLOOD SPECIMENOrdering Facility: [facility] Address: [address] [place] [address] Performed By: #### 2 4321-2 ####[facility] LABCLIA [id number] [place] [address] [place] NURSING PROGon 06-09-2023 NURSING PROG Normal [facility] PT EDon 06-09-2023 PT ED Normal [facility] SOCIAL WORKon 06-09-2023 SOCIAL WORK Normal [facility] THERAPY NTon 06-09-2023 THERAPY NT Normal [facility] THERAPY NT Normal [facility] THERAPY NT Normal [facility] Basic metabolic 2000 panelon 06-08-2023 Anion gap [Moles/Vol] 11 mmol/L Normal 9-18 [facility] Comment on above: Order Comment: Speci men Type: BLOOD SPECIMENOrdering Facility: [facility] Address: [address] [place] [address] Performed By: #### 2 4321-2 ####[facility] LABCLIA [id number] [facility] [place] [address] [place] Calcium [Mass/Vol] 9.2 mg/dL Normal 8.5-10.2 [facility] Comment on above: Order Comment: Speci men Type: BLOOD SPECIMENOrdering Facility: [facility] Address: [address] [place] [address] Performed By: #### 2 4321-2 ####[facility] LABCLIA [id number] [facility] [address] [place] Chloride [Moles/Vol] 105 mmol/L Normal 97-105 [facility] Comment on above: Order Comment: Speci men Type: BLOOD SPECIMENOrdering Facility: [facility] Address: [address] [place] [address] Performed By: #### 2 4321-2 ####[facility] LABCLIA [id number] [place] [address] [place] CO2 [Moles/Vol] 27 mmol/L Normal 22-30 [facility] Comment on above: Order Comment: Speci men Type: BLOOD SPECIMENOrdering Facility: [facility] Address: [address] [place] [address] Performed By: #### 2 4321-2 ####[facility] LABCLIA [id number] [place] [address] [place] Creatinine [Mass/Vol] 2.23 mg/dL High 0.73-1.22 [facility] Comment on above: Order Comment: Speci men Type: BLOOD SPECIMENOrdering Facility: [facility] Address: [address] [place] [address] Performed By: #### 2 4321-2 ####[facility] LABCLIA [id number] [place] [address] [place] Creatinine and Glomerular filtration rate.predicted panel (S/P/Bld) 32 mL/min/1.73m??? Low >=60 [facility] Comment on above: Order Comment: Luz vaughan Type: BLOOD SPECIMENOrdering Facility: [facility] Address: [address] [place] [address] Result Comment: Breanne mated Glomerular Filtration Rate [...] actual GFR. Performed By: #### 2 4321-2 ####[facility] LABCLThe World of Pictures [id number] [place] [id number] [place] Glucose [Mass/Vol] 131 mg/dL High 74-99 [facility] Comment on above: Order Comment: Luz vaughan Type: BLOOD SPECIMENOrdering Facility: [facility] Address: [address] [place] [address] Result Comment: The [place] Diabetes Association (ADA) provides guidance for cutoff [...] Standards of Medical Care in Diabetes 2016, [place] [employer]. Diabetes Care. 2016.39(Suppl 1). Performed By: #### 2 4321-2 ####[facility] LABCLIA [id number] [place] [address] [place] Potassium [Moles/Vol] 5.8 mmol/L High 3.7-5.1 [facility] Comment on above: Order Comment: Luz vaughan Type: BLOOD SPECIMENOrdering Facility: [facility] Address: [address] [place] [id number] Performed By: #### 2 4321-2 ####[facility] LABCLIA [id number] [place] [address] [place] Sodium [Moles/Vol] 143 mmol/L Normal 136-144 [facility] Comment on above: Order Comment: Speci men Type: BLOOD SPECIMENOrdering Facility: [facility] Address: [address] [place] [address] Performed By: #### 2 4321-2 ####[facility] LABCLIA [id number] [place] [address] [place] Urea nitrogen [Mass/Vol] 47 mg/dL High 9-24 [facility] Comment on above: Order Comment: Speci men Type: BLOOD SPECIMENOrdering Facility: [facility] Address: [address] [place] [address] Performed By: #### 2 4321-2 ####[facility] LABCLIA [id number] [place] [address] [place] Anion gap [Moles/Vol] 10 mmol/L Normal 9-18 [facility] Comment on above: Order Comment: Speci men Type: BLOOD SPECIMENOrdering Facility: [facility] Address: [address] [place] [address] Performed By: #### 2 4321-2 ####[facility] LABCLIA [id number] [place] [address] [place] Calcium [Mass/Vol] 9.1 mg/dL Normal 8.5-10.2 [facility] Comment on above: Order Comment: Speci men Type: BLOOD SPECIMENOrdering Facility: [facility] Address: [address] [place] [place] [id number] Performed By: #### 2 4321-2 ####[facility] LABCLIA [id number] [place] [address] [place] Chloride [Moles/Vol] 104 mmol/L Normal 97-105 [facility] Comment on above: Order Comment: Speci men Type: BLOOD SPECIMENOrdering Facility: [facility] Address: [address] [place] [address] Performed By: #### 2 4321-2 ####[facility] LABCLIA [id number] [place] [address] [place] CO2 [Moles/Vol] 27 mmol/L Normal 22-30 [facility] Comment on above: Order Comment: Speci men Type: BLOOD SPECIMENOrdering Facility: [facility] Address: [address] [place] [address] Performed By: #### 2 4321-2 ####[facility] LABCLIA [id number] [place] [address] [facility] Creatinine [Mass/Vol] 2.26 mg/dL High 0.73-1.22 [facility] Comment on above: Order Comment: Speci men Type: BLOOD SPECIMENOrdering Facility: [facility] Address: [address] [place] [address] Performed By: #### 2 4321-2 ####[facility] LABCLIA [id number] [place] [id number] [facility] Creatinine and Glomerular filtration rate.predicted panel (S/P/Bld) 32 mL/min/1.73m??? Low >=60 [facility] Comment on above: Order Comment: Speci men Type: BLOOD SPECIMENOrdering Facility: [facility] Address: [address] [place] [address] Result Comment: Breanne mated Glomerular Filtration Rate [...] actual GFR. Performed By: #### 2 4321-2 ####[facility] LABCLIA [id number] [place] [address] [place] Glucose [Mass/Vol] 166 mg/dL High 74-99 [facility] Comment on above: Order Comment: Speci men Type: BLOOD SPECIMENOrdering Facility: [facility] Address: [address] [place], [place] [id number] Result Comment: The [place] Diabetes Association (ADA) provides guidance for cutoff [...] Standards of Medical Care in Diabetes 2016, [place] [employer]. Diabetes Care. 2016.39(Suppl 1). Performed By: #### 2 4321-2 ####[facility] LABCLIA [id number] [place] [address] [place] Potassium [Moles/Vol] 5.7 mmol/L High 3.7-5.1 [facility] Comment on above: Order Comment: Brooksi men Type: BLOOD SPECIMENOrdering Facility: [facility] Address: [address] [place], [place] [address] Performed By: #### 2 4321-2 ####[facility] LABCLIA [id number] [place] [address] [place] Sodium [Moles/Vol] 141 mmol/L Normal 136-144 [facility] Comment on above: Order Comment: Speci men Type: BLOOD SPECIMENOrdering Facility: [facility] Address: [address] [place], [place] [address] Performed By: #### 2 4321-2 ####[facility] LABCLIA [id number] [place] [address] [place] Urea nitrogen [Mass/Vol] 50 mg/dL High 9-24 [facility] Comment on above: Order Comment: Speci men Type: BLOOD SPECIMENOrdering Facility: [facility] Address: [address] [place] [address] Performed By: #### 2 4321-2 ####[facility] LABCLIA [id number] [place] [address] [place] POTASSIUM BLDon 06-08-2023 Potassium [Moles/Vol] 5.0 mmol/L Normal 3.7-5.1 [facility] Comment on above: Order Comment: Speci men Type: BLOOD SPECIMENOrdering Facility: [facility] Address: [address] [place] [address] Performed By: #### K 1 ####[facility] [place] LABCLIA [id number] [place] [address] [place] SOCIAL WORKon 06-08-2023 SOCIAL WORK Normal [facility] THERAPY NTon 06-08-2023 THERAPY NT Normal [facility] THERAPY NT Normal [facility] Basic metabolic 2000 panelon 06-07-2023 Anion gap [Moles/Vol] 10 mmol/L Normal 9-18 [facility] Comment on above: Order Comment: Speci men Type: BLOOD SPECIMENOrdering Facility: [facility] Address: [address] [place] [address] Performed By: #### 2 4321-2 ####[facility] LABCLIA [id number] [place] [address] [place] Calcium [Mass/Vol] 9.3 mg/dL Normal 8.5-10.2 [facility] Comment on above: Order Comment: Speci men Type: BLOOD SPECIMENOrdering Facility: [facility] Address: [address] [place] [address] Performed By: #### 2 4321-2 ####[facility] LABCLIA [id number] [place] [address] [place] Chloride [Moles/Vol] 108 mmol/L High 97-105 [facility] Comment on above: Order Comment: Speci men Type: BLOOD SPECIMENOrdering Facility: [facility] Address: [address] [place] [address] Performed By: #### 2 4321-2 ####[facility] LABCLIA [id number] [place] [address] [place] CO2 [Moles/Vol] 28 mmol/L Normal 22-30 [facility] Comment on above: Order Comment: Speci men Type: BLOOD SPECIMENOrdering Facility: [facility] Address: [address] [place] [address] Performed By: #### 2 4321-2 ####[facility] LABCLIA [id number] [place] [address] [place] Creatinine [Mass/Vol] 2.43 mg/dL High 0.73-1.22 [facility] Comment on above: Order Comment: Speci men Type: BLOOD SPECIMENOrdering Facility: [facility] Address: [address] [place] [address] Performed By: #### 2 4321-2 ####[facility] LABCLIA [id number] [place] [address] [place] Creatinine and Glomerular filtration rate.predicted panel (S/P/Bld) 29 mL/min/1.73m??? Low >=60 [facility] Comment on above: Order Comment: Speci men Type: BLOOD SPECIMENOrdering Facility: [facility] Address: [address] [place] [address] Result Comment: Breanne mated Glomerular Filtration Rate [...] actual GFR. Performed By: #### 2 4321-2 ####[facility] LABCLIA [id number] [place] [address] [place] Glucose [Mass/Vol] 139 mg/dL High 74-99 [facility] Comment on above: Order Comment: Speci men Type: BLOOD SPECIMENOrdering Facility: [facility] Address: [address] [place] [id number] Result Comment: The [place] Diabetes Association (ADA) provides guidance for cutoff [...] Standards of Medical Care in Diabetes 2016, [place] [employer]. Diabetes Care. 2016.39(Suppl 1). Performed By: #### 2 4321-2 ####[facility] LABCLIA [id number] [place] [address] [place] Potassium [Moles/Vol] 5.8 mmol/L High 3.7-5.1 [facility] Comment on above: Order Comment: Luz men Type: BLOOD SPECIMENOrdering Facility: [facility] [facility] Address: [address] [id number] Performed By: #### 2 4321-2 ####[facility] LABCLIA [id number] [place] [address] [place] Sodium [Moles/Vol] 146 mmol/L High 136-144 [facility] Comment on above: Order Comment: Speci men Type: BLOOD SPECIMENOrdering Facility: [facility] Address: [address] [id number] Performed By: #### 2 4321-2 ####[facility] [place] LABCLIA [id number] [place] [address] [place] Urea nitrogen [Mass/Vol] 53 mg/dL High 9-24 [facility] Comment on above: Order Comment: Brooksi men Type: BLOOD SPECIMENOrdering Facility: [facility] Address: [address] [id number] Performed By: #### 2 4321-2 ####[facility] [place] LABCLIA [id number] [facility] [place] [address] [facility] Comprehensive metabolic 2000 panelon 06-07-2023 Albumin [Mass/Vol] 3.1 g/dL Low 3.9-4.9 [facility] Comment on above: Order Comment: Speci men Type: BLOOD SPECIMENOrdering Facility: [facility] Address: [address] [place] [address] Performed By: #### 2 4323-8 ####[facility] [place] LABCLIA [id number] [facility] [place] [address] [facility] ALP [Catalytic activity/Vol] 112 U/L Normal 38-113 [facility] Comment on above: Order Comment: Speci men Type: BLOOD SPECIMENOrdering Facility: [facility] Address: [address] [place] [address] Performed By: #### 2 4323-8 ####[facility] [place] LABCLIA [id number] [facility] [place] [address] [facility] ALT With P-5'-P [Catalytic activity/Vol] 25 U/L Normal 10-54 [facility] Comment on above: Order Comment: Speci men Type: BLOOD SPECIMENOrdering Facility: [facility] Address: [address] [place] [address] Performed By: #### 2 4323-8 ####[facility] [place] LABCLIA [id number] [facility] [place] [address] [facility] Anion gap [Moles/Vol] 12 mmol/L Normal 9-18 [facility] Comment on above: Order Comment: Speci men Type: BLOOD SPECIMENOrdering Facility: [facility] Address: [address] [place] [address] Performed By: #### 2 4323-8 ####[facility] [place] LABCLIA [id number] [facility] [place] [address] [facility] AST With P-5'-P [Catalytic activity/Vol] 20 U/L Normal 14-40 [facility] Comment on above: Order Comment: Speci men Type: BLOOD SPECIMENOrdering Facility: [facility] Address: [address] [place] [address] Performed By: #### 2 4323-8 ####[facility] [place] LABCLIA [id number] [facility] [place] [address] [place] Bilirubin [Mass/Vol] mg/dL Low 0.2-1.3 [facility] Comment on above: Order Comment: Speci men Type: BLOOD SPECIMENOrdering Facility: [facility] Address: [address] [place] [address] Performed By: #### 2 4323-8 ####[facility] [place] LABCLIA [id number] [facility] [place] [address] [place] Calcium [Mass/Vol] 9.0 mg/dL Normal 8.5-10.2 [facility] Comment on above: Order Comment: Speci men Type: BLOOD SPECIMENOrdering Facility: [facility] Address: [address] [place] [address] Performed By: #### 2 4323-8 ####[facility] [place] LABCLIA [id number] [facility] [place] [address] [place] Chloride [Moles/Vol] 105 mmol/L Normal 97-105 [facility] Comment on above: Order Comment: Speci men Type: BLOOD SPECIMENOrdering Facility: [facility] Address: [address] [place] [address] Performed By: #### 2 4323-8 ####[facility] [place] LABCLIA [id number] [facility] [place] [address] [place] CO2 [Moles/Vol] 24 mmol/L Normal 22-30 [facility] Comment on above: Order Comment: Speci men Type: BLOOD SPECIMENOrdering Facility: [facility] Address: [address] [place] [address] Performed By: #### 2 4323-8 ####[facility] [place] LABCLIA [id number] [place] [address] [place] Creatinine [Mass/Vol] 2.22 mg/dL High 0.73-1.22 [facility] Comment on above: Order Comment: Luz vaughan Type: BLOOD SPECIMENOrdering Facility: [facility] Address: [address] [place] [address] Performed By: #### 2 4323-8 ####[facility] LABCLIA [id number] [address] [id number] [facility] Creatinine and Glomerular filtration rate.predicted panel (S/P/Bld) 32 mL/min/1.73m??? Low >=60 [facility] Comment on above: Order Comment: Luz vaughan Type: BLOOD SPECIMENOrdering Facility: [facility] Address: [address] [place] [address] Result Comment: Breanne mated Glomerular Filtration Rate [...] actual GFR. Performed By: #### 2 4323-8 ####[facility] LABCLIA [id number] [place] [address] [place] Glucose [Mass/Vol] 103 mg/dL High 74-99 [facility] Comment on above: Order Comment: Luz vaughan Type: BLOOD SPECIMENOrdering Facility: [facility] Address: [address] [place] [address] Result Comment: The [place] [employer] (ADA) provides guidance for cutoff [...] Standards of Medical Care in Diabetes 2016, [place] [employer]. Diabetes Care. 2016.39(Suppl 1). Performed By: #### 2 4323-8 ####[facility] [place] LABCLIA [id number] [place] [address] [place] Potassium [Moles/Vol] 4.9 mmol/L Normal 3.7-5.1 [facility] Comment on above: Order Comment: Speci men Type: BLOOD SPECIMENOrdering Facility: [facility] Address: [address] [place] [address] Performed By: #### 2 4323-8 ####[facility] [place] LABCLIA [id number] [place] [address] [place] Protein [Mass/Vol] 6.1 g/dL Low 6.3-8.0 [facility] Comment on above: Order Comment: Speci men Type: BLOOD SPECIMENOrdering Facility: [facility] Address: [address] [place] [address] Performed By: #### 2 4323-8 ####[facility] LABCLIA [id number] [place] [address] [place] Sodium [Moles/Vol] 141 mmol/L Normal 136-144 [facility] Comment on above: Order Comment: Speci men Type: BLOOD SPECIMENOrdering Facility: [facility] Address: [address] [place] [address] Performed By: #### 2 4323-8 ####[facility] [place] LABCLIA [id number] [place] [address] [place] Urea nitrogen [Mass/Vol] 49 mg/dL High 9-24 [facility] Comment on above: Order Comment: Speci men Type: BLOOD SPECIMENOrdering Facility: [facility] Address: [address] [place] [address] Performed By: #### 2 4323-8 ####[facility] [place] LABCLIA [id number] [place] [address] [place] SOCIAL WORKon 06-07-2023 SOCIAL WORK Normal [facility] THERAPY NTon 06-07-2023 THERAPY NT Normal [facility] THERAPY NT Normal [facility] SOCIAL WORKon 06-06-2023 SOCIAL WORK Normal [facility] THERAPY NTon 06-06-2023 THERAPY NT Normal [facility] Basic metabolic 2000 panelon 06-05-2023 Anion gap [Moles/Vol] 9 mmol/L Normal 9-18 [facility] Comment on above: Order Comment: Speci men Type: BLOOD SPECIMENOrdering Facility: [facility] Address: [address] [place] [address] Performed By: #### 2 4321-2 ####[facility] [place] LABCLIA [id number] [place] [address] [place] Calcium [Mass/Vol] 8.7 mg/dL Normal 8.5-10.2 [facility] Comment on above: Order Comment: Speci men Type: BLOOD SPECIMENOrdering Facility: [facility] Address: [address] [place] [address] Performed By: #### 2 4321-2 ####[facility] LABCLIA [id number] [place] [address] [place] Chloride [Moles/Vol] 107 mmol/L High 97-105 [facility] Comment on above: Order Comment: Speci men Type: BLOOD SPECIMENOrdering Facility: [facility] Address: [address] [place] [address] Performed By: #### 2 4321-2 ####[facility] [place] LABCLIA [id number] [place] [address] [place] CO2 [Moles/Vol] 25 mmol/L Normal 22-30 [facility] Comment on above: Order Comment: Speci men Type: BLOOD SPECIMENOrdering Facility: [facility] Address: [address] [place] [address] Performed By: #### 2 4321-2 ####[facility] [place] LABCLIA [id number] [place] [address] [place] Creatinine [Mass/Vol] 2.20 mg/dL High 0.73-1.22 [facility] Comment on above: Order Comment: Luz vaughan Type: BLOOD SPECIMENOrdering Facility: [facility] Address: [address] [place] [address] Performed By: #### 2 4321-2 ####[facility] LABCLIA [id number] [address] [id number] [facility] Creatinine and Glomerular filtration rate.predicted panel (S/P/Bld) 33 mL/min/1.73m??? Low >=60 [facility] Comment on above: Order Comment: Luz vaughan Type: BLOOD SPECIMENOrdering Facility: [facility] Address: [address] [place] [address] Result Comment: Breanne mated Glomerular Filtration Rate [...] actual GFR. Performed By: #### 2 4321-2 ####[facility] LABCLIA [id number] [place] [address] [place] Glucose [Mass/Vol] 148 mg/dL High 74-99 [facility] Comment on above: Order Comment: Luz vaughan Type: BLOOD SPECIMENOrdering Facility: [facility] Address: [address] [place] [address] Result Comment: The [place] Diabetes Association (ADA) provides guidance for cutoff [...] Standards of Medical Care in Diabetes 2016, [place] [employer]. Diabetes Care. 2016.39(Suppl 1). Performed By: #### 2 4321-2 ####[facility] [place] LABCLIA [id number] [place] [address] [place] Potassium [Moles/Vol] 5.0 mmol/L Normal 3.7-5.1 [facility] Comment on above: Order Comment: Speci men Type: BLOOD SPECIMENOrdering Facility: [facility] Address: [address] [place] [address] Performed By: #### 2 4321-2 ####[facility] LABCLIA [id number] [place] [address] [place] Sodium [Moles/Vol] 141 mmol/L Normal 136-144 [facility] Comment on above: Order Comment: Speci men Type: BLOOD SPECIMENOrdering Facility: [facility] Address: [address] [place] [address] Performed By: #### 2 4321-2 ####[facility] LABCLIA [id number] [place] [address] [place] Urea nitrogen [Mass/Vol] 44 mg/dL High 9-24 [facility] Comment on above: Order Comment: Speci men Type: BLOOD SPECIMENOrdering Facility: [facility] Address: [address] [place] [address] Performed By: #### 2 4321-2 ####[facility] [place] LABCLIA [id number] [place] [address] [place] NUTRITIONon 06-05-2023 NUTRITION Normal [facility] PT EDon 06-05-2023 PT ED Normal [facility] SOCIAL WORKon 06-05-2023 SOCIAL WORK Normal [facility] SOCIAL WORK Normal [facility] THERAPY NTon 06-05-2023 THERAPY NT Normal [facility] THERAPY NT Normal [facility] Basic metabolic 2000 panelon 06-04-2023 Anion gap [Moles/Vol] 9 mmol/L Normal 9-18 [facility] Comment on above: Order Comment: Speci men Type: BLOOD SPECIMENOrdering Facility: [facility] Address: [address] [place] [address] Performed By: #### 2 4321-2 ####[facility] [place] LABCLIA [id number] [place] [address] [place] Calcium [Mass/Vol] 8.7 mg/dL Normal 8.5-10.2 [facility] Comment on above: Order Comment: Speci men Type: BLOOD SPECIMENOrdering Facility: [facility] Address: [address] [place] [address] Performed By: #### 2 4321-2 ####[facility] [place] LABCLIA [id number] [place] [address] [place] Chloride [Moles/Vol] 106 mmol/L High 97-105 [facility] Comment on above: Order Comment: Speci men Type: BLOOD SPECIMENOrdering Facility: [facility] Address: [address] [place] [address] Performed By: #### 2 4321-2 ####[facility] [place] LABCLIA [id number] [facility] [place] [address] [place] CO2 [Moles/Vol] 26 mmol/L Normal 22-30 [facility] Comment on above: Order Comment: Speci men Type: BLOOD SPECIMENOrdering Facility: [facility] Address: [address] [place] [address] Performed By: #### 2 4321-2 ####[facility] [place] LABCLIA [id number] [place] [address] [place] Creatinine [Mass/Vol] 2.33 mg/dL High 0.73-1.22 [facility] Comment on above: Order Comment: Speci men Type: BLOOD SPECIMENOrdering Facility: [facility] Address: [address] [place] [address] Performed By: #### 2 4321-2 ####[facility] [place] LABCLIA [id number] [place] [address] [place] Creatinine and Glomerular filtration rate.predicted panel (S/P/Bld) 31 mL/min/1.73m??? Low >=60 [facility] Comment on above: Order Comment: Luz vaughan Type: BLOOD SPECIMENOrdering Facility: [facility] Address: [address] [place] [address] Result Comment: Breanne mated Glomerular Filtration Rate [...] actual GFR. Performed By: #### 2 4321-2 ####[facility] LABIA [id number] [place] [id number] [place] Glucose [Mass/Vol] 150 mg/dL High 74-99 [facility] Comment on above: Order Comment: Luz vaughan Type: BLOOD SPECIMENOrdering Facility: [facility] Address: [address] [place] [address] Result Comment: The [place] Diabetes Association (ADA) provides guidance for cutoff [...] Standards of Medical Care in Diabetes 2016, [place] [employer]. Diabetes Care. 2016.39(Suppl 1). Performed By: #### 2 4321-2 ####[facility] LABCLIA [id number] [place] [address] [place] Potassium [Moles/Vol] 5.1 mmol/L Normal 3.7-5.1 [facility] Comment on above: Order Comment: Speci men Type: BLOOD SPECIMENOrdering Facility: [facility] Address: [address] [place] [address] Performed By: #### 2 4321-2 ####[facility] [place] LABCLIA [id number] [place] [address] [place] Sodium [Moles/Vol] 141 mmol/L Normal 136-144 [facility] Comment on above: Order Comment: Speci men Type: BLOOD SPECIMENOrdering Facility: [facility] Address: [address] [place] [address] Performed By: #### 2 4321-2 ####[facility] LABCLIA [id number] [place] [address] [place] Urea nitrogen [Mass/Vol] 45 mg/dL High 9-24 [facility] Comment on above: Order Comment: Speci men Type: BLOOD SPECIMENOrdering Facility: [facility] Address: [address] [place] [address] Performed By: #### 2 4321-2 ####[facility] [place] LABCLIA [id number] [place] [address] [place] CBC panel Auto (Bld)on 06-03 Erythrocyte distribution width (RBC) [Ratio] 12.9 % Normal 11.5-15.0 [facility] Comment on above: Order Comment: Speci men Type: BLOOD SPECIMENOrdering Facility: [facility] Address: [address] [place] [address] Performed By: #### 5 8410-2, WAMMR ####[facility] [place] LABCLIA [id number] [place] [address] [facility] Hematocrit (Bld) [Volume fraction] 35.5 % Low 39.0-51.0 [facility] Comment on above: Order Comment: Speci men Type: BLOOD SPECIMENOrdering Facility: [facility] Address: [address] [place] [address] Performed By: #### 5 8410-2, WAMMR ####[facility] [place] LABCLIA [id number] [facility] [place] [address] [place] [facility] Hemoglobin (Bld) [Mass/Vol] 11.1 g/dL Low 13.0-17.0 [facility] Comment on above: Order Comment: Speci men Type: BLOOD SPECIMENOrdering Facility: [facility] Address: [address] [place] [address] Performed By: #### 5 8410-2, WAMMR ####[facility] [place] LABCLIA [id number] [place] [address] [place] MCH (RBC) [Entitic mass] 28.5 pg Normal 26.0-34.0 [facility] Comment on above: Order Comment: Speci men Type: BLOOD SPECIMENOrdering Facility: [facility] Address: [address] [place] [address] Performed By: #### 5 8410-2, WAMMR ####[facility] LABCLIA [id number] [place] [address] [place] MCHC (RBC) [Mass/Vol] 31.3 g/dL Normal 30.5-36.0 [facility] Comment on above: Order Comment: Speci men Type: BLOOD SPECIMENOrdering Facility: [facility] Address: [address] [place] [address] Performed By: #### 5 8410-2, WAMMR ####[facility] LABCLIA [id number] [place] [address] [place] MCV (RBC) [Entitic vol] 91.0 fL Normal 80.0-100.0 [facility] Comment on above: Order Comment: Speci men Type: BLOOD SPECIMENOrdering Facility: [facility] Address: [address] [place] [address] Performed By: #### 5 8410-2, WAMMR ####[facility] LABCLIA [id number] [place] [address] [facility] Platelet mean volume (Bld) [Entitic vol] 10.5 fL Normal 9.0-12.7 [facility] Comment on above: Order Comment: Speci men Type: BLOOD SPECIMENOrdering Facility: [facility] Address: [address] [place] [address] Performed By: #### 5 8410-2, WAMMR ####[facility] LABCLIA [id number] [place] [address] [place] Platelets (Bld) [#/Vol] 217 10*3/uL Normal 150-400 [facility] Comment on above: Order Comment: Speci men Type: BLOOD SPECIMENOrdering Facility: [facility] Address: [address] [place] [address] Result Comment: No c lot detected. Performed By: #### 5 8410-2, WAMMR ####[facility] LABCLIA [id number] [place] [address] [place] RBC (Bld) [#/Vol] 3.90 10*6/uL Low 4.20-6.00 [facility] Comment on above: Order Comment: Speci men Type: BLOOD SPECIMENOrdering Facility: [facility] Address: [address] [place] [address] Performed By: #### 5 8410-2, WAMMR ####[facility] LABCLIA [id number] [place] [address] [place] WBC (Bld) [#/Vol] 3.18 10*3/uL Low 3.70-11.00 [facility] Comment on above: Order Comment: Speci men Type: BLOOD SPECIMENOrdering Facility: [facility] Address: [address] [place] [address] Performed By: #### 5 8410-2, WAMMR ####[facility] [place] LABCLIA [id number] [place] [address] [place] MORPH WAM REFLEXon 4 Platelets Estimate (Bld) [#/Vol] Adequate Normal [facility] Comment on above: Order Comment: Speci men Type: BLOOD SPECIMENOrdering Facility: [facility] Address: [address] [place] [address] Performed By: #### 5 8410-2, WAMMR ####[facility] [place] LABCLIA [id number] [facility] [place] [address] [facility] Urinalysis complete panel (U )on 06-04-2023 Bilirubin Ql (U) Negative Normal Negative [facility] Comment on above: Order Comment: Speci men Type: URINE SPECIMENOrdering Facility: [facility] Address: [address] [place] [address] Performed By: #### 2 4356-8 ####[facility] [place] LABCLIA [id number] [place] [address] [facility] Clarity (Unsp spec) Clear Normal Clear [facility] Comment on above: Order Comment: Speci men Type: URINE SPECIMENOrdering Facility: [facility] Address: [address] [place] [address] Performed By: #### 2 4356-8 ####[facility] [place] LABCLIA [id number] [place] [address] [facility] Color (U) Light Yellow Abnormal Yellow [facility] Comment on above: Order Comment: Speci men Type: URINE SPECIMENOrdering Facility: [facility] Address: [address] [place] [address] Performed By: #### 2 4356-8 ####[facility] [place] LABCLIA [id number] [place] [address] [facility] Glucose Test strip (U) [Mass/Vol] 2+ Abnormal Negative [facility] Comment on above: Order Comment: Speci men Type: URINE SPECIMENOrdering Facility: [facility] Address: [address] [place] [address] Performed By: #### 2 4356-8 ####[facility] [place] LABCLIA [id number] [place] [address] [place] Hemoglobin Ql (U) Trace Abnormal Negative [facility] Comment on above: Order Comment: Speci men Type: URINE SPECIMENOrdering Facility: [facility] Address: [address] [place] [address] Performed By: #### 2 4356-8 ####[facility] [place] LABCLIA [id number] [place] [address] [place] Ketones Ql (U) Negative Normal Negative [facility] Comment on above: Order Comment: Speci men Type: URINE SPECIMENOrdering Facility: [facility] Address: [address] [place] [address] Performed By: #### 2 4356-8 ####[facility] [place] LABCLIA [id number] [place] [address] [facility] Leukocyte esterase Test strip Ql (U) Negative Normal Negative [facility] Comment on above: Order Comment: Speci men Type: URINE SPECIMENOrdering Facility: [facility] Address: [address] [place] [address] Performed By: #### 2 4356-8 ####[facility] [place] LABCLIA [id number] [place] [address] [place] [facility] Nitrite Ql (U) Negative Normal Negative [facility] Comment on above: Order Comment: Speci men Type: URINE SPECIMENOrdering Facility: [facility] Address: [address] [place] [address] Performed By: #### 2 4356-8 ####[facility] [place] LABCLIA [id number] [place] [address] [place] pH (U) 6.5 [pH] Normal 5.0-8.0 [facility] Comment on above: Order Comment: Speci men Type: URINE SPECIMENOrdering Facility: [facility] Address: [address] [place] [address] Performed By: #### 2 4356-8 ####[facility] [place] LABCLIA [id number] [place] [address] [place] Protein (U) [Mass/Vol] 3+ Abnormal Negative [facility] Comment on above: Order Comment: Speci men Type: URINE SPECIMENOrdering Facility: [facility] Address: [address] [place] [address] Performed By: #### 2 4356-8 ####[facility] LABCLIA [id number] [place] [address] [facility] RBC LM.HPF (Urine sed) [#/Area] 0-3 /HPF Normal 0-3 /HPF [facility] Comment on above: Order Comment: Speci men Type: URINE SPECIMENOrdering Facility: [facility] Address: [address] [place] [address] Performed By: #### 2 4356-8 ####[facility] LABCLIA [id number] [place] [id number] [facility] Specific gravity (U) [Rel density] 1.020 Normal 1.005-1.030 [facility] Comment on above: Order Comment: Speci men Type: URINE SPECIMENOrdering Facility: [facility] Address: [address] [place] [address] Performed By: #### 2 4356-8 ####[facility] LABCLIA [id number] [place] [id number] [facility] Urobilinogen Ql (U) 0.2 EU/dL Normal 0.2-1.0 EU/dL [facility] Comment on above: Order Comment: Speci men Type: URINE SPECIMENOrdering Facility: [facility] Address: [address] [place] [address] Performed By: #### 2 4356-8 ####[facility] LABCLIA [id number] [place] [id number] [facility] WBC LM.HPF (Urine sed) [#/Area] 0-5 /HPF Normal 0-5 /HPF [facility] Comment on above: Order Comment: Speci men Type: URINE SPECIMENOrdering Facility: [facility] Address: [address] [place] [address] Performed By: #### 2 4356-8 ####[facility] [place] LABCLIA [id number] [place] [address] [place] Basic metabolic 2000 panelon 06-03-2023 Anion gap [Moles/Vol] 10 mmol/L Normal 9-18 [facility] Comment on above: Order Comment: Speci men Type: BLOOD SPECIMENOrdering Facility: [facility] Address: [address] [place] [address] Performed By: #### 2 4321-2 ####[facility] [place] LABCLIA [id number] [place] [address] [place] Calcium [Mass/Vol] 8.7 mg/dL Normal 8.5-10.2 [facility] Comment on above: Order Comment: Speci men Type: BLOOD SPECIMENOrdering Facility: [facility] Address: [address] [place] [address] Performed By: #### 2 4321-2 ####[facility] [place] LABCLIA [id number] [place] [address] [place] Chloride [Moles/Vol] 105 mmol/L Normal 97-105 [facility] Comment on above: Order Comment: Speci men Type: BLOOD SPECIMENOrdering Facility: [facility] Address: [address] [place] [address] Performed By: #### 2 4321-2 ####[facility] [place] LABCLIA [id number] [place] [address] [place] CO2 [Moles/Vol] 26 mmol/L Normal 22-30 [facility] Comment on above: Order Comment: Speci men Type: BLOOD SPECIMENOrdering Facility: [facility] Address: [address] [place] [address] Performed By: #### 2 4321-2 ####[facility] [place] LABCLIA [id number] [place] [address] [place] Creatinine [Mass/Vol] 2.37 mg/dL High 0.73-1.22 [facility] Comment on above: Order Comment: Brooksjonas vaughan Type: BLOOD SPECIMENOrdering Facility: [facility] Address: [address] [place] [address] Performed By: #### 2 4321-2 ####[facility] LABIA [id number] [place] [address] [place] Creatinine and Glomerular filtration rate.predicted panel (S/P/Bld) 30 mL/min/1.73m??? Low >=60 [facility] Comment on above: Order Comment: Brooksjonas vaughan Type: BLOOD SPECIMENOrdering Facility: [facility] Address: [address] [place] [address] Result Comment: Breanne mated Glomerular Filtration Rate [...] actual GFR. Performed By: #### 2 4321-2 ####[facility] LABIA [id number] [place] [address] [place] Glucose [Mass/Vol] 152 mg/dL High 74-99 [facility] Comment on above: Order Comment: Luz vaughan Type: BLOOD SPECIMENOrdering Facility: [facility] Address: [address] [place] [address] Result Comment: The [place] Diabetes Association (ADA) provides guidance for cutoff [...] Standards of Medical Care in Diabetes 2016, [place] [employer]. Diabetes Care. 2016.39(Suppl 1). Performed By: #### 2 4321-2 ####[facility] [place] LABCLIA [id number] [place] [address] [place] Potassium [Moles/Vol] 5.0 mmol/L Normal 3.7-5.1 [facility] Comment on above: Order Comment: Speci men Type: BLOOD SPECIMENOrdering Facility: [facility] Address: [address] [place] [address] Performed By: #### 2 4321-2 ####[facility] [place] LABCLIA [id number] [place] [address] [place] Sodium [Moles/Vol] 141 mmol/L Normal 136-144 [facility] Comment on above: Order Comment: Speci men Type: BLOOD SPECIMENOrdering Facility: [facility] Address: [address] [place] [address] Performed By: #### 2 4321-2 ####[facility] [place] LABCLIA [id number] [place] [address] [place] Urea nitrogen [Mass/Vol] 44 mg/dL High 9-24 [facility] Comment on above: Order Comment: Speci men Type: BLOOD SPECIMENOrdering Facility: [facility] Address: [address] [place] [address] Performed By: #### 2 4321-2 ####[facility] [place] LABCLIA [id number] [place] [address] [place] Basic metabolic 2000 panelon 06-02-2023 Anion gap [Moles/Vol] 11 mmol/L Normal 9-18 [facility] Comment on above: Order Comment: Speci men Type: BLOOD SPECIMENOrdering Facility: [facility] Address: [address] [place] [address] Performed By: #### 2 4321-2 ####[facility] [place] LABCLIA [id number] [place] [address] [place] Calcium [Mass/Vol] 8.9 mg/dL Normal 8.5-10.2 [facility] Comment on above: Order Comment: Speci men Type: BLOOD SPECIMENOrdering Facility: [facility] Address: [address] [place] [address] Performed By: #### 2 4321-2 ####[facility] [place] LABCLIA [id number] [place] [address] [place] Chloride [Moles/Vol] 104 mmol/L Normal 97-105 [facility] Comment on above: Order Comment: Speci men Type: BLOOD SPECIMENOrdering Facility: [facility] Address: [address] [place] [address] Performed By: #### 2 4321-2 ####[facility] [place] LABCLIA [id number] [place] [address] [place] CO2 [Moles/Vol] 27 mmol/L Normal 22-30 [facility] Comment on above: Order Comment: Speci men Type: BLOOD SPECIMENOrdering Facility: [facility] Address: [address] [place] [address] Performed By: #### 2 4321-2 ####[facility] LABCLIA [id number] [place] [address] [place] Creatinine [Mass/Vol] 2.38 mg/dL High 0.73-1.22 [facility] Comment on above: Order Comment: Speci men Type: BLOOD SPECIMENOrdering Facility: [facility] Address: [address] [place] [address] Performed By: #### 2 4321-2 ####[facility] [place] LABCLIA [id number] [place] [address] [facility] Creatinine and Glomerular filtration rate.predicted panel (S/P/Bld) 30 mL/min/1.73m??? Low >=60 [facility] Comment on above: Order Comment: Speci men Type: BLOOD SPECIMENOrdering Facility: [facility] Address: [address] [place] [address] Result Comment: Breanne mated Glomerular Filtration Rate [...] actual GFR. Performed By: #### 2 4321-2 ####[facility] LABCLIA [id number] [place] [address] [place] Glucose [Mass/Vol] 146 mg/dL High 74-99 [facility] Comment on above: Order Comment: Luz men Type: BLOOD SPECIMENOrdering Facility: [facility] Address: [address] [place] [address] Result Comment: The [place] Diabetes Association (ADA) provides guidance for cutoff [...] Standards of Medical Care in Diabetes 2016, [place] [employer]. Diabetes Care. 2016.39(Suppl 1). Performed By: #### 2 4321-2 ####[facility] LABCLIA [id number] [place] [address] [place] Potassium [Moles/Vol] 5.3 mmol/L High 3.7-5.1 [facility] Comment on above: Order Comment: Luz vaughan Type: BLOOD SPECIMENOrdering Facility: [facility] Address: [address] [place] [address] Performed By: #### 2 4321-2 ####[facility] [place] LABCLIA [id number] [place] [address] [place] Sodium [Moles/Vol] 142 mmol/L Normal 136-144 [facility] Comment on above: Order Comment: Brooksi men Type: BLOOD SPECIMENOrdering Facility: [facility] Address: [address] [place] [address] Performed By: #### 2 4321-2 ####[facility] [place] LABCLIA [id number] [place] [address] [place] Urea nitrogen [Mass/Vol] 48 mg/dL High 9-24 [facility] Comment on above: Order Comment: Speci men Type: BLOOD SPECIMENOrdering Facility: [facility] Address: [address] [place] [address] Performed By: #### 2 4321-2 ####[facility] [place] LABCLIA [id number] [place] [address] [place] THERAPY NTon 06-02-2023 THERAPY NT Normal [facility] THERAPY NT Normal [facility] THERAPY NTon 06-01-2023 THERAPY NT Normal [facility] THERAPY NT Normal [facility] THERAPY NT Normal [facility] NURSING PROGon 05-31-2023 NURSING PROG Normal [facility] SOCIAL WORKon 05-31-2023 SOCIAL WORK Normal [facility] THERAPY NTon 05-31-2023 THERAPY NT Normal [facility] THERAPY NT Normal [facility] THERAPY NT Normal [facility] THERAPY NT Normal [facility] Basic metabolic 2000 panelon 05-30-2023 Anion gap [Moles/Vol] 10 mmol/L Normal 9-18 [facility] Comment on above: Order Comment: Speci men Type: BLOOD SPECIMENOrdering Facility: [facility] Address: [address] [place] [address] Performed By: #### 2 4321-2 ####[facility] [place] LABCLIA [id number] [place] [address] [place] Calcium [Mass/Vol] 8.4 mg/dL Low 8.5-10.2 [facility] Comment on above: Order Comment: Speci men Type: BLOOD SPECIMENOrdering Facility: [facility] Address: [address] [place] [address] Performed By: #### 2 4321-2 ####[facility] [place] LABCLIA [id number] [place] [address] [place] Chloride [Moles/Vol] 103 mmol/L Normal 97-105 [facility] Comment on above: Order Comment: Speci men Type: BLOOD SPECIMENOrdering Facility: [facility] Address: [address] [place] [address] Performed By: #### 2 4321-2 ####[facility] [place] LABCLIA [id number] [place] [address] [place] CO2 [Moles/Vol] 23 mmol/L Normal 22-30 [facility] Comment on above: Order Comment: Speci men Type: BLOOD SPECIMENOrdering Facility: [facility] Address: [address] [place] [address] Performed By: #### 2 4321-2 ####[facility] LABCLIA [id number] [place] [address] [place] Creatinine [Mass/Vol] 2.34 mg/dL High 0.73-1.22 [facility] Comment on above: Order Comment: Speci men Type: BLOOD SPECIMENOrdering Facility: [facility] Address: [address] [place] [address] Performed By: #### 2 4321-2 ####[facility] LABCLIA [id number] [place] [address] [facility] Creatinine and Glomerular filtration rate.predicted panel (S/P/Bld) 30 mL/min/1.73m??? Low >=60 [facility] Comment on above: Order Comment: Speci men Type: BLOOD SPECIMENOrdering Facility: [facility] Address: [address] [place] [address] Result Comment: Breanne mated Glomerular Filtration Rate [...] actual GFR. Performed By: #### 2 4321-2 ####[facility] LABCLIA [id number] [place] [address] [place] Glucose [Mass/Vol] 242 mg/dL High 74-99 [facility] Comment on above: Order Comment: Speci clement Type: BLOOD SPECIMENOrdering Facility: [facility] Address: [address] [place] [address] Result Comment: The [place] Diabetes Association (ADA) provides guidance for cutoff [...] Standards of Medical Care in Diabetes 2016, [place] [employer]. Diabetes Care. 2016.39(Suppl 1). Performed By: #### 2 4321-2 ####[facility] LABCLIA [id number] [place] [address] [place] Potassium [Moles/Vol] 4.9 mmol/L Normal 3.7-5.1 [facility] Comment on above: Order Comment: Luz clement Type: BLOOD SPECIMENOrdering Facility: [facility] Address: [address] [place] [address] Performed By: #### 2 4321-2 ####[facility] LABCLIA [id number] [place] [address] [place] Sodium [Moles/Vol] 136 mmol/L Normal 136-144 [facility] Comment on above: Order Comment: Brooksjonas vaughan Type: BLOOD SPECIMENOrdering Facility: [facility] Address: [address] [place] [address] Performed By: #### 2 4321-2 ####[facility] [place] LABCLIA [id number] [place] [address] [place] Urea nitrogen [Mass/Vol] 49 mg/dL High 9-24 [facility] Comment on above: Order Comment: Speci men Type: BLOOD SPECIMENOrdering Facility: [facility] Address: [address] [place] [address] Performed By: #### 2 4321-2 ####[facility] LABCLIA [id number] [place] [address] [place] CASE MGT INIT ASSESon 2023 CASE MGT INIT ASSES Normal [facility] CBC panel Auto (Bld)on 05-30 Erythrocyte distribution width (RBC) [Ratio] 13.3 % Normal 11.5-15.0 [facility] Comment on above: Order Comment: Speci men Type: BLOOD SPECIMENOrdering Facility: [facility] Address: [address] [place] [address] Performed By: #### 5 8410-2 ####[facility] LABCLIA [id number] [place] [address] [place] Hematocrit (Bld) [Volume fraction] 34.3 % Low 39.0-51.0 [facility] Comment on above: Order Comment: Speci men Type: BLOOD SPECIMENOrdering Facility: [facility] Address: [address] [place] [address] Performed By: #### 5 8410-2 ####[facility] LABCLIA [id number] [place] [address] [place] Hemoglobin (Bld) [Mass/Vol] 11.1 g/dL Low 13.0-17.0 [facility] Comment on above: Order Comment: Speci men Type: BLOOD SPECIMENOrdering Facility: [facility] Address: [address] [place] [address] Performed By: #### 5 8410-2 ####[facility] LABCLIA [id number] [place] [address] [place] MCH (RBC) [Entitic mass] 29.4 pg Normal 26.0-34.0 [facility] Comment on above: Order Comment: Speci men Type: BLOOD SPECIMENOrdering Facility: [facility] Address: [address] [place] [address] Performed By: #### 5 8410-2 ####[facility] [place] LABCLIA [id number] [place] [address] [place] MCHC (RBC) [Mass/Vol] 32.4 g/dL Normal 30.5-36.0 [facility] Comment on above: Order Comment: Speci men Type: BLOOD SPECIMENOrdering Facility: [facility] Address: [address] [place] [address] Performed By: #### 5 8410-2 ####[facility] LABCLIA [id number] [place] [address] [place] MCV (RBC) [Entitic vol] 91.0 fL Normal 80.0-100.0 [facility] Comment on above: Order Comment: Speci men Type: BLOOD SPECIMENOrdering Facility: [facility] Address: [address] [place] [address] Performed By: #### 5 8410-2 ####[facility] LABCLIA [id number] [place] [address] [place] Platelet mean volume (Bld) [Entitic vol] 9.7 fL Normal 9.0-12.7 [facility] Comment on above: Order Comment: Speci men Type: BLOOD SPECIMENOrdering Facility: [facility] Address: [address] [place] [address] Performed By: #### 5 8410-2 ####[facility] LABCLIA [id number] [place] [address] [place] Platelets (Bld) [#/Vol] 225 10*3/uL Normal 150-400 [facility] Comment on above: Order Comment: Speci men Type: BLOOD SPECIMENOrdering Facility: [facility] Address: [address] [place] [address] Performed By: #### 5 8410-2 ####[facility] [place] LABCLIA [id number] [place] [address] [place] RBC (Bld) [#/Vol] 3.77 10*6/uL Low 4.20-6.00 [facility] Comment on above: Order Comment: Speci men Type: BLOOD SPECIMENOrdering Facility: [facility] Address: [address] [place] [address] Performed By: #### 5 8410-2 ####[facility] [place] LABCLIA [id number] [place] [address] [place] WBC (Bld) [#/Vol] 3.75 10*3/uL Normal 3.70-11.00 [facility] Comment on above: Order Comment: Speci men Type: BLOOD SPECIMENOrdering Facility: [facility] Address: [address] [place] [address] Performed By: #### 5 8410-2 ####[facility] LABCLIA [id number] [place] [address] [facility] [place] NURSING PROGon 05-30-2023 NURSING PROG Normal [facility] SOCIAL WORKon 05-30-2023 SOCIAL WORK Normal [facility] SOCIAL WORK Normal [facility] THERAPY NTon 05-30-2023 THERAPY NT Normal [facility] THERAPY NT Normal [facility] ALLIED HEALTHon 05-29-2023 ALLIED HEALTH Normal [facility] CBC panel Auto (Bld)on 05-29 Erythrocyte distribution width (RBC) [Ratio] 13.4 % Normal 11.5-15.0 [facility] Comment on above: Order Comment: Speci men Type: BLOOD SPECIMENOrdering Facility: [facility] Address: [address] [place] [address] Performed By: #### 5 8410-2 ####[facility] [place] LABCLIA [id number] [place] [address] [facility] Hematocrit (Bld) [Volume fraction] 35.9 % Low 39.0-51.0 [facility] Comment on above: Order Comment: Speci men Type: BLOOD SPECIMENOrdering Facility: [facility] Address: [address] [place] [address] Performed By: #### 5 8410-2 ####[facility] LABCLIA [id number] [place] [address] [place] [facility] Hemoglobin (Bld) [Mass/Vol] 11.4 g/dL Low 13.0-17.0 [facility] Comment on above: Order Comment: Speci men Type: BLOOD SPECIMENOrdering Facility: [facility] Address: [address] [place] [address] Performed By: #### 5 8410-2 ####[facility] LABCLIA [id number] [place] [address] [place] MCH (RBC) [Entitic mass] 28.9 pg Normal 26.0-34.0 [facility] Comment on above: Order Comment: Speci men Type: BLOOD SPECIMENOrdering Facility: [facility] Address: [address] [place] [address] Performed By: #### 5 8410-2 ####[facility] LABCLIA [id number] [place], [place] [id number] [place] [address] [place] MCHC (RBC) [Mass/Vol] 31.8 g/dL Normal 30.5-36.0 [facility] Comment on above: Order Comment: Speci men Type: BLOOD SPECIMENOrdering Facility: [facility] Address: [address] [place] [address] Performed By: #### 5 8410-2 ####[facility] LABCLIA [id number] [place] [address] [place] MCV (RBC) [Entitic vol] 90.9 fL Normal 80.0-100.0 [facility] Comment on above: Order Comment: Speci men Type: BLOOD SPECIMENOrdering Facility: [facility] Address: [address] [place] [address] Performed By: #### 5 8410-2 ####[facility] [place] LABCLIA [id number] [place] [address] [place] Platelet mean volume (Bld) [Entitic vol] 9.3 fL Normal 9.0-12.7 [facility] Comment on above: Order Comment: Speci men Type: BLOOD SPECIMENOrdering Facility: [facility] Address: [address] [place] [address] Performed By: #### 5 8410-2 ####[facility] [place] LABCLIA [id number] [place] [address] [place] Platelets (Bld) [#/Vol] 221 10*3/uL Normal 150-400 [facility] Comment on above: Order Comment: Speci men Type: BLOOD SPECIMENOrdering Facility: [facility] Address: [address] [place] [address] Performed By: #### 5 8410-2 ####[facility] [place] LABCLIA [id number] [place] [address] [facility] [place] RBC (Bld) [#/Vol] 3.95 10*6/uL Low 4.20-6.00 [facility] Comment on above: Order Comment: Speci men Type: BLOOD SPECIMENOrdering Facility: [facility] Address: [address] [place] [address] Performed By: #### 5 8410-2 ####[facility] [place] LABCLIA [id number] [place] [address] [place] WBC (Bld) [#/Vol] 4.62 10*3/uL Normal 3.70-11.00 [facility] Comment on above: Order Comment: Speci men Type: BLOOD SPECIMENOrdering Facility: [facility] Address: [address] [place] [address] Performed By: #### 5 8410-2 ####[facility] [place] LABCLIA [id number] [place] [address] [facility] Comprehensive metabolic 2000 panelon 05-29-2023 Albumin [Mass/Vol] 2.9 g/dL Low 3.9-4.9 [facility] Comment on above: Order Comment: Speci men Type: BLOOD SPECIMENOrdering Facility: [facility] Address: [address] [place] [address] Performed By: #### 2 4323-8 ####[facility] [place] LABCLIA [id number] [facility] [place] [address] [place] [facility] ALP [Catalytic activity/Vol] 109 U/L Normal 38-113 [facility] Comment on above: Order Comment: Speci men Type: BLOOD SPECIMENOrdering Facility: [facility] Address: [address] [place] [address] Performed By: #### 2 4323-8 ####[facility] [place] LABCLIA [id number] [facility] [place] [address] [place] [facility] ALT With P-5'-P [Catalytic activity/Vol] 11 U/L Normal 10-54 [facility] Comment on above: Order Comment: Speci men Type: BLOOD SPECIMENOrdering Facility: [facility] Address: [address] [place] [address] Performed By: #### 2 4323-8 ####[facility] LABCLIA [id number] [facility] [place] [address] [facility] [facility] Anion gap [Moles/Vol] 10 mmol/L Normal 9-18 [facility] Comment on above: Order Comment: Speci men Type: BLOOD SPECIMENOrdering Facility: [facility] Address: [address] [place] [address] Performed By: #### 2 4323-8 ####[facility] LABCLIA [id number] [place] [address] [place] [facility] AST With P-5'-P [Catalytic activity/Vol] 13 U/L Low 14-40 [facility] Comment on above: Order Comment: Speci men Type: BLOOD SPECIMENOrdering Facility: [facility] Address: [address] [place] [address] Performed By: #### 2 4323-8 ####[facility] LABCLIA [id number] [place] [address] [place] Bilirubin [Mass/Vol] 0.3 mg/dL Normal 0.2-1.3 [facility] Comment on above: Order Comment: Speci men Type: BLOOD SPECIMENOrdering Facility: [facility] Address: [address] [place] [address] Performed By: #### 2 4323-8 ####[facility] LABCLIA [id number] [facility] [place] [address] [place] Calcium [Mass/Vol] 8.7 mg/dL Normal 8.5-10.2 [facility] Comment on above: Order Comment: Speci men Type: BLOOD SPECIMENOrdering Facility: [facility] Address: [address] [place] [address] Performed By: #### 2 4323-8 ####[facility] LABCLIA [id number] [facility] [place] [address] [place] Chloride [Moles/Vol] 104 mmol/L Normal 97-105 [facility] Comment on above: Order Comment: Speci men Type: BLOOD SPECIMENOrdering Facility: [facility] Address: [address] [place] [address] Performed By: #### 2 4323-8 ####[facility] LABCLIA [id number] [facility] [place] [address] [place] CO2 [Moles/Vol] 24 mmol/L Normal 22-30 [facility] Comment on above: Order Comment: Speci men Type: BLOOD SPECIMENOrdering Facility: [facility] Address: [address] [place] [address] Performed By: #### 2 4323-8 ####[facility] LABCLIA [id number] [facility] [place] [address] [place] Creatinine [Mass/Vol] 2.49 mg/dL High 0.73-1.22 [facility] Comment on above: Order Comment: Speci men Type: BLOOD SPECIMENOrdering Facility: [facility] Address: [address] [place] [address] Performed By: #### 2 4323-8 ####[facility] [employer] LABViridity SoftwareIA [id number] [place] [address] [place] Creatinine and Glomerular filtration rate.predicted panel (S/P/Bld) 28 mL/min/1.73m??? Low >=60 [facility] Comment on above: Order Comment: Luz vaughan Type: BLOOD SPECIMENOrdering Facility: [facility] Address: [address] [place] [address] Result Comment: Breanne mated Glomerular Filtration Rate [...] actual GFR. Performed By: #### 2 4323-8 ####[facility] [employer] LABCLIA [id number] [place] [id number] [place] Glucose [Mass/Vol] 240 mg/dL High 74-99 [facility] Comment on above: Order Comment: Luz vaughan Type: BLOOD SPECIMENOrdering Facility: [facility] Address: [address] [place] [address] Result Comment: The [place] Diabetes Association (ADA) provides guidance for cutoff [...] Standards of Medical Care in Diabetes 2016, [place] [employer] Association. Diabetes Care. 2016.39(Suppl 1). Performed By: #### 2 4323-8 ####[facility] LABCLIA [id number] [place] [address] [place] [facility] Potassium [Moles/Vol] 6.0 mmol/L High 3.7-5.1 [facility] Comment on above: Order Comment: Speci men Type: BLOOD SPECIMENOrdering Facility: [facility] Address: [address] [place] [address] Performed By: #### 2 4323-8 ####[facility] LABCLIA [id number] [place] [address] [place] Protein [Mass/Vol] 5.6 g/dL Low 6.3-8.0 [facility] Comment on above: Order Comment: Speci men Type: BLOOD SPECIMENOrdering Facility: [facility] Address: [address] [place] [address] Performed By: #### 2 4323-8 ####[facility] LABCLIA [id number] [facility] [place] [address] [place] Sodium [Moles/Vol] 138 mmol/L Normal 136-144 [facility] Comment on above: Order Comment: Speci men Type: BLOOD SPECIMENOrdering Facility: [facility] Address: [address] [place] [address] Performed By: #### 2 4323-8 ####[facility] LABCLIA [id number] [place] [address] [facility] Urea nitrogen [Mass/Vol] 54 mg/dL High 9-24 [facility] Comment on above: Order Comment: Speci men Type: BLOOD SPECIMENOrdering Facility: [facility] Address: [address] [place] [address] Performed By: #### 2 4323-8 ####[facility] LABCLIA [id number] [facility] [place] [address] [facility] NUTRITIONon 05-29-2023 NUTRITION Normal [facility] POTASSIUM BLDon 05-29-2023 Potassium [Moles/Vol] 4.6 mmol/L Normal 3.7-5.1 [facility] Comment on above: Order Comment: Speci men Type: BLOOD SPECIMENOrdering Facility: [facility] Address: [address] [place] [address] Performed By: #### K 1 ####[facility] LABCLIA [id number] [place] [address] [place] PT EDon 05-29-2023 PT ED Normal [facility] THERAPY NTon 05-29-2023 THERAPY NT Normal [facility] THERAPY NT Normal [facility] US DVT UPPER LTon 05-29-2023 US DVT UPPER LT Normal [facility] US EXT MASS/FLUID COLLECTION LTon 05-29-2023 US EXT MASS/FLUID COLLECTION LT Normal [facility] CONSULT PROGon 05-28-2023 CONSULT PROG Normal [facility] NURSING PROGon 05-28-2023 NURSING PROG Normal [facility] THERAPY NTon 05-28-2023 THERAPY NT Normal [facility] HISTORY PHYSICALon HISTORY PHYSICAL Normal [facility] THERAPY NTon 05-27-2023 THERAPY NT Normal [facility] THERAPY NT Normal [facility] NURSING PROGon 05-26-2023 NURSING PROG Normal [facility] CNPTOUTREACHon 05-23-2023 CNPTOUTREACH Normal [facility] GLUCOSE, BLOOD (POC)on 05-23 Glucose [Mass/Vol] 444 mg/dL Abnormal 74 - 99 mg/dL [facility] HEMOGLOBIN A1C (POC)on 05-23 HbA1c (Bld) [Mass fraction] 13.9 % Abnormal 4.3 - 5.6 % [facility] CNPTOUTREACHon 05-19-2023 CNPTOUTREACH Normal [facility] ECHOon 12-01-2022 [facility] NM CARDIAC PERF STRESS/PHARM on 12-01-2022 [facility] IR INJ PROC FOR HIP ARTHOGRA M (AK)on 08-30-2022 [facility] HEMOGLOBIN A1C (POC)on 06-29 HbA1c (Bld) [Mass fraction] 8.9 % Abnormal 4.2 - 5.6 % [facility] CBC W Auto Differential pane l (Bld)on 06-01-2022 Basophils (Bld) [#/Vol] 0.03 10*3/uL <0.11 k/uL [facility] Basophils/100 WBC (Bld) 0.4 % [facility] Differential cell count method Nom (Bld) Auto [facility] Eosinophils (Bld) [#/Vol] 0.14 10*3/uL <0.46 k/uL [facility] Eosinophils/100 WBC (Bld) 1.9 % [facility] Erythrocyte distribution width (RBC) [Ratio] 12.8 % 11.5 - 15.0 % [facility] Hematocrit (Bld) [Volume fraction] 44.6 % 39.0 - 51.0 % [facility] Hemoglobin (Bld) [Mass/Vol] 14.6 g/dL 13.0 - 17.0 g/dL [facility] Immature granulocytes (Bld) [#/Vol] 0.04 10*3/uL <0.10 k/uL [facility] Immature granulocytes/100 WBC (Bld) 0.5 % [facility] Lymphocytes (Bld) [#/Vol] 1.73 10*3/uL 1.00 - 4.00 k/uL [facility] Lymphocytes/100 WBC (Bld) 23.3 % [facility] MCH (RBC) [Entitic mass] 28.5 pg 26.0 - 34.0 pg [facility] MCHC (RBC) [Mass/Vol] 32.7 g/dL 30.5 - 36.0 g/dL [facility] MCV (RBC) [Entitic vol] 87.1 fL 80.0 - 100.0 fL [facility] Monocytes (Bld) [#/Vol] 0.55 10*3/uL <0.87 k/uL [facility] Monocytes/100 WBC (Bld) 7.4 % [facility] Neutrophils (Bld) [#/Vol] 4.92 10*3/uL 1.45 - 7.50 k/uL [facility] Neutrophils/100 WBC (Bld) 66.5 % [facility] Nucleated RBC (Bld) [#/Vol] <0.01 k/uL [facility] Nucleated RBC/100 WBC (Bld) [Ratio] 0.0 /100 WBC [facility] Platelet mean volume (Bld) [Entitic vol] 10.1 fL 9.0 - 12.7 fL [facility] Platelets (Bld) [#/Vol] 289 10*3/uL 150 - 400 k/uL [facility] RBC (Bld) [#/Vol] 5.12 10*6/uL 4.20 - 6.0 0 m/uL [facility] WBC (Bld) [#/Vol] 7.41 10*3/uL 3.70 - 11. 00 k/uL [facility] CEA BLDon 06-01-2022 Carcinoembryonic Ag [Mass/Vol] 3.7 ng/mL High <3.0 ng/mL [facility] Comprehensive metabolic 2000 panelon 06-01-2022 Albumin [Mass/Vol] 4.1 g/dL 3.9 - 4.9 g/dL [facility] ALP [Catalytic activity/Vol] 104 U/L 38 - 113 U/L [facility] ALT With P-5'-P [Catalytic activity/Vol] 16 U/L 10 - 54 U/L [facility] Anion gap [Moles/Vol] 9 mmol/L 9 - 18 mmol/L [facility] AST With P-5'-P [Catalytic activity/Vol] 14 U/L 14 - 40 U/L [facility] Bilirubin [Mass/Vol] 0.3 mg/dL 0.2 - 1 .3 mg/dL [facility] Calcium [Mass/Vol] 10.6 mg/dL High 8.5 - 10. 2 mg/dL [facility] Chloride [Moles/Vol] 102 mmol/L 97 - 10 5 mmol/L [facility] CO2 [Moles/Vol] 29 mmol/L 22 - 30 mmol/L [facility] Creatinine [Mass/Vol] 1.69 mg/dL High 0.73 - 1.22 mg/dL [facility] Estimated Glomerular Filtration Rate 45 mL/min/1.73m Low >=60 mL/min/1.73m [facility] Glucose [Mass/Vol] 215 mg/dL High 74 - 99 mg/dL [facility] Potassium [Moles/Vol] 5.8 mmol/L High 3.7 - 5.1 mmol/L [facility] Protein [Mass/Vol] 6.6 g/dL 6.3 - 8.0 g/dL [facility] Sodium [Moles/Vol] 140 mmol/L 136 - 144 mmol/L [facility] Urea nitrogen [Mass/Vol] 39 mg/dL High 9 - 24 mg/dL [facility] GLUCOSE, BLOOD (POC)on 05-18 Glucose [Mass/Vol] 196 mg/dL Abnormal 74 - 99 mg/dL [facility] HEMOGLOBIN A1C (POC)on 05-18 HbA1c (Bld) [Mass fraction] 9.7 % Abnormal 4.2 - 5.6 % [facility] GLUCOSE, BLOOD (POC)on 04-13 Glucose [Mass/Vol] 234 mg/dL Abnormal 74 - 99 mg/dL [facility] HEMOGLOBIN A1C (POC)on 04-13 HbA1c (Bld) [Mass fraction] 10.5 % Abnormal 4.2 - 5.6 % [facility] GLUCOSE, BLOOD (POC)on 03-01 Glucose [Mass/Vol] 384 mg/dL Abnormal 74 - 99 mg/dL [facility] HEMOGLOBIN A1C (POC)on 03-01 HbA1c (Bld) [Mass fraction] 10.7 % Abnormal 4.2 - 5.6 % [facility] CASE MANAGEMon 01-27-2022 CASE MANAGEM HNO ID: [id number] Author: OSCAR Lopez Service: Social Work Author Type: Clother In Type: Care Mgt Progress Note Filed: 01/27/2022 12:32 PM Note Text: [facility]IORAL HEALTH SOCIAL WORK DISCHARGE NOTE SERVICE DATE: 01/27/2022 SERVICE TIME: 8:58 AM Discharge Information Row Name Admission (Current) from 01/20/[address] [facility] 6D Psychiatry Follow-Up Appointment Psychiatrist Name Deb Gomez [facility] Address / Phone # [address] [facility] [place] [address] / Appointment Date 02/11/22 Appointment Time 8:30AM Additional Instructions Bring insurnance card and photo ID. The office is located on the 4th floor of the managed care specialist center ([facility]). Discharge Disposition Discharge Disposition Skilled Care Fpc Fpc Referral Information Agency Name [facility] Address [address] , [place] [address] Additional Discharge Information Additional Discharge Resources [facility], 6D, Additional Discharge Follow Up Information Once pt is ready for discharge from SNF, please provide pt with transportation back to [facility] to pick up worker his car from the parking lot. 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 The pt is aware and agreeable with discharge plans. Update provided to the facility. The pt's car will remain in hospital parking lot. The facility will arrange transportation for pt to return to [facility] to pick up worker his car once SNF stay is complete. Hospital police/security team are aware. SIGNATURE: AMERICA Lopez, OSCAR PATIENT NAME: José Manuel Ashton DATE: January 27, 2022 TIME: 8:58 AM [facility] HNO ID: [id number] Author: Lius Carlos Short Jr., MD Service: Psychiatry Author [...] Feeling physically and emotionally improved, discharge to care home facility on 01/27/22 was activated. Suicide risk [...] PATIENT CONDITION AT DISCHARGE: Improved DISCHARGE DISPOSITION: [facility] Facility COMPLICATIONS: None At this time the patient has maximized his benefit from hospitalization.. The patient denies suicidal or homicidal ideation, intent or plan and is safe for discharge. The patient voices a readiness to transition to care home care setting, and has agreed to our [...] management at SNF, therapeutic drug monitoring at [facility] for depakote 2. Psychological Management Recommendations: jayla (more content not included)... [facility] NURSING PROGon 01-27-2022 NURSING PROG HNO ID: [id number] Author: Huong Glass RN Service: Nursing Author Type: Counselor Type: Nursing Progress Note Filed: 01/27/2022 12:25 PM Note Text: [id number] Assumed care of pt awake in bed. [...] peers. Report called to Harish GARZA at [facility]. Pt left unit via stretcher at 1133. Safety precautions maintained. [facility] ALLIED HEALTHon 01-26-2022 ALLIED [facility]ALTH HNO ID: [id number] Author: RT Juarez(R) Service: Radiology Author Type: [...] RT Juarez(R) January 26, 2022 10:57 AM [facility] Basic metabolic 2000 panelon 01-26-2022 Anion gap [Moles/Vol] 6 mmol/L Low 9-18 [facility] Comment on above: Order Comment: Speci men Type: BLOOD SPECIMENOrdering Facility: [facility] Address: [address] [place] [address] Performed By: #### 1 9123-9, 41454-4, ####[facility] LABORATORYCLIA [id number] [place] [address] [place] Calcium [Mass/Vol] 9.4 mg/dL Normal 8.5-10.2 [facility] Comment on above: Order Comment: Speci men Type: BLOOD SPECIMENOrdering Facility: [facility] Address: [address] [place], [place] [phone] Performed By: #### 1 9123-9, 47002-8, ####[facility] LABORATORYCLIA [id number] [place] [id number] [place] Chloride [Moles/Vol] 99 mmol/L Normal 97-105 [facility] Comment on above: Order Comment: Speci men Type: BLOOD SPECIMENOrdering Facility: [facility] Address: [address] [place], [place] [phone] Performed By: #### 1 9123-9, 22118-8, ####[facility] LABORATORYCLIA [id number] [address] [address] [place] CO2 [Moles/Vol] 31 mmol/L High 22-30 [facility] Comment on above: Order Comment: Speci men Type: BLOOD SPECIMENOrdering Facility: [facility] Address: [address] [place] [address] Performed By: #### 1 9123-9, 81953-9, ####[facility] LABORATORYCLIA [id number] [place] [id number] [place] Creatinine [Mass/Vol] 1.19 mg/dL Normal 0.73-1.22 [facility] Comment on above: Order Comment: Speci men Type: BLOOD SPECIMENOrdering Facility: [facility] Address: [address] [place] [address] Performed By: #### 1 9123-9, 01291-3, ####[facility] LABORATORYCLIA [id number] [place] [id number] [place] ESTIMATED GLOMERULAR FILTRATION RATE 69 mL/min/1.73m??? Normal >=60 [facility] Comment on above: Order Comment: Speci men Type: BLOOD SPECIMENOrdering Facility: [facility] Address: [address] [place] [address] Result Comment: Breanne mated Glomerular Filtration Rate [...] actual GFR. Performed By: #### 1 9123-9, 67052-0, ####YARSANISM LABORATORYCLIA [id number] [place] [id number] [place] Glucose [Mass/Vol] 161 mg/dL High 74-99 [facility] Comment on above: Order Comment: Speci men Type: BLOOD SPECIMENOrdering Facility: [facility] Address: [address] [place], [place] [address] [phone] Result Comment: The [place] Diabetes Association (ADA) provides guidance for cutoff [...] Standards of Medical Care in Diabetes 2016, [place] [employer]. Diabetes Care. 2016.39(Suppl 1). Performed By: #### 1 9123-9, 31957-5, ####Y[facility] LABORATORYCLIA [id number] [place] [address] [place] Potassium [Moles/Vol] 5.0 mmol/L Normal 3.7-5.1 [facility] Comment on above: Order Comment: Speci men Type: BLOOD SPECIMENOrdering Facility: [facility] Address: [address] [place] [phone] Performed By: #### 1 9123-9, 10427-6, ####YARSANISM LABORATORYCLIA [id number] [place] [id number] [place] Sodium [Moles/Vol] 136 mmol/L Normal 136-144 [facility] Comment on above: Order Comment: Speci men Type: BLOOD SPECIMENOrdering Facility: [facility] Address: [address] [place] [phone] Performed By: #### 1 9123-9, 87791-5, 1987-08, ####YARSANISM LABORATORYCLIA [id number] [address] [address] [place] Urea nitrogen [Mass/Vol] 26 mg/dL High 9-24 [facility] Comment on above: Order Comment: Speci men Type: BLOOD SPECIMENOrdering Facility: [facility] Address: [address] [place], [place] [phone] Performed By: #### 1 9123-9, 95486-5, 1987-, 84780-8 ####YARSANISM LABORATORYCLIA [id number] [address] [place] [address] [facility] CASE MANAGEMon 01-26-2022 CASE MANAGEM HNO ID: [id number] Author: OSCAR Lopez Service: Social Work Author Type: Clother In Type: Care Mgt Progress Note Filed: 01/26/2022 5:01 PM Note Text: BEHAVIORAL HEALTH SOCIAL WORK PROGRESS NOTE SERVICE DATE: 01/26/2022 SERVICE TIME: 4:50 PM Pt's discharge today has been cancelled due to not being medically clear. This ad copy writer was made aware today that pt's car is parked in the hospital parking lot. Informed pt his car will need to remain in parking lot until SNF stay is complete or he could make arrangements with family to pick up worker the car. Pt appears frustrated, stating I don't know what to do.. He reports I don't have anyone to pick up worker the car that knows how to drive in the city.. Pt agreeable to leaving his car in hospital parking lot if approved by hospital security team and if his ambulance ride to facility will be covered by insurance. [facility] contacted billing department (phone #: [phone]) for [facility]. According to their billing department, pt has Medicare and [place] Medicaid. Billing department reports pt should not have a copay or any financial responsibility for ambulance ride.. [facility] informed pt of call with billing department. Pt remains agreeable to being transported to SNF by ambulance. Spoke with Officer Piter at [facility] police department. Discussed the above situation. Officer Piter agrees to allow pt's car to remain on hospital property until SNF stay is complete. [facility] provided officer Piter with pt's name, phone number, name of SNF, license plate number, color and make of vehicle ([employer]ogram), and written reason for the request. Officer Piter will forward this information to fellow officers and security guards at [facility] police at [place]. Update provided to [facility]. The psychologist social at the SNF will arrange transportation for pt to come back to [facility] to pick up worker his car once SNF stay is complete. [...] is for pt to be discharged to [facility] tomorrow (01/27) at 11:00am via ambulance (Trip #: [id number]). SW will confirm discharge with facility tomorrow morning. PAS/determination results in pt's chart. SW will continue to follow. SIGNATURE: AMERICA Lopez, COAL MINE INSPECTOR PATIENT NAME: José Manuel Ashton DATE: January 26, 2022 TIME: 4:[address] [facility] CBC panel Auto (Bld)on 01-26 Erythrocyte distribution width (RBC) [Ratio] 13.0 % Normal 11.5-15.0 [facility] Comment on above: Order Comment: Speci men Type: BLOOD SPECIMEN [facility]ing Facility: [facility] Address: [address] [place] [address] Performed By: #### 5 8410-2 #### [facility] CLIA [id number] ATTN [address] [place] Hematocrit (Bld) [Volume fraction] 43.5 % Normal 39.0-51.0 [facility] Comment on above: Order Comment: Speci men Type: BLOOD SPECIMEN Ordering Facility: [facility] Address: [address] [place] [id number] Performed By: #### 5 8410-2 #### [facility] CLIA [id number] [address] [place] [address] [place] Hemoglobin (Bld) [Mass/Vol] 14.1 g/dL Normal 13.0-17.0 [facility] Comment on above: Order Comment: Speci men Type: BLOOD SPECIMEN Ordering [facility]: [facility] Address: [address] [place] [address] Performed By: #### 5 8410-2 #### [facility] [place] [id number] [address] [place] [address] [place] MCH (RBC) [Entitic mass] 29.0 pg Normal 26.0-34.0 [facility] Comment on above: Order Comment: Speci men Type: BLOOD SPECIMEN [facility]ing [facility]: [facility] Address: [address] [place] [address] Performed By: #### 5 8410-2 #### [facility] IA [id number] [address] [place] [address] MCHC (RBC) [Mass/Vol] 32.4 g/dL Normal 30.5-36.0 [facility] Comment on above: Order Comment: Speci men Type: BLOOD SPECIMEN Ordering [facility]: [facility] Address: [address] [place] [address] Performed By: #### 5 8410-2 #### [facility] [place] [id number] [address] [place] [address] [place] MCV (RBC) [Entitic vol] 89.5 fL Normal 80.0-100.0 [facility] Comment on above: Order Comment: Speci men Type: BLOOD SPECIMEN Ordering [facility]: [facility] Address: [address] [place] [address] Performed By: #### 5 8410-2 #### [facility] [place] [id number] [address] [place] [address] [place] Nucleated RBC (Bld) [#/Vol] 10*3/uL Normal <0.01 [facility] Comment on above: Order Comment: Speci men Type: BLOOD SPECIMEN [facility] [facility] Address: [address] [place], [place] [address] Performed By: #### 5 8410-2 #### [facility] CLIA [id number] [address] [place], [place] [id number] [place] Platelet mean volume (Bld) [Entitic vol] 9.3 fL Normal 9.0-12.7 [facility] Comment on above: Order Comment: Speci men Type: BLOOD SPECIMEN Ordering Facility: [facility] Address: [address] [place], [place] [address] Performed By: #### 5 8410-2 #### [facility] IA [id number] [address] [place] [address] [place] Platelets (Bld) [#/Vol] 278 10*3/uL Normal 150-400 [facility] Comment on above: Order Comment: Speci men Type: BLOOD SPECIMEN Ordering Facility: [facility] Address: [address] [place], [place] [address] Performed By: #### 5 8410-2 #### [facility] IA [id number] [address] [place], [place] [address] [place] RBC (Bld) [#/Vol] 4.86 10*6/uL Normal 4.20-6.00 [facility] Comment on above: Order Comment: Speci men Type: BLOOD SPECIMEN Ordering Facility: [facility] Address: [address] [place], [place] [address] Performed By: #### 5 8410-2 #### [facility] CLIA [id number] [address] [place], [place] [address] [place] WBC (Bld) [#/Vol] 5.07 10*3/uL Normal 3.70-11.00 [facility] Comment on above: Order Comment: Speci men Type: BLOOD SPECIMEN Ordering Facility: [facility] Address: [address] [place], [place] [address] Performed By: #### 5 8410-2 #### [facility] CLIA [id number] [address] [place], [place] [address] [facility] CRP SerPl-mCncon 01-26-2022 CRP [Mass/Vol] 0.3 mg/dL Normal <0.9 [facility] Comment on above: Order Comment: Speci men Type: BLOOD SPECIMENOrdering Facility: [facility] Address: [address] [place] [address] Performed By: #### 1 9123-9, 72986-2, 1987-08, ####[facility] [id number] [place] [id number] [facility] Magnesium SerPl-mCncon 01-26 Magnesium [Mass/Vol] 1.8 mg/dL Normal 1.7-2.3 [facility] Comment on above: Order Comment: Speci men Type: BLOOD SPECIMENOrdering Facility: [facility] Address: [address] [place] [address] Performed By: #### 1 9123-9, 75512-6, 1987-08, ####[facility] [id number] [place] [id number] [place] NURSING PROGon 01-26-2022 NURSING PROG HNO ID: [id number] Author: Mulu Sosa, LEATHA Service: ? Author [...] Pt slept estimated 6-[address] [facility] NURSING PROG HNO ID: [id number] Author: Huong Glass RN Service: Nursing Author Type: Counselor Type: Nursing Progress Note Filed: 01/26/2022 7:19 PM Note Text: [phone] Assumed care of pt awake in room. [...] AND HS. Safety precautions maintained. Normal [facility] Procalcitonin SerPl-mCncon 1 Procalcitonin [Mass/Vol] ng/mL Normal <0.09 [facility] Comment on above: Order Comment: Speci men Type: BLOOD SPECIMENOrdering Facility: [facility] Address: [address] [place] [address] [place] [address] Result Comment: For a guided interpretation of test results, please visit the Change in Procalcitonin Calculator, [email or web address]. Performed By: #### 1 9123-9, 96495-5, 1988-5, 21983-6 ####[facility] [id number] [address] [place] XR CHEST 1V [...] Stable exam with no acute radiographic abnormality. Filler Blender: PSCB Transcribe Date/Time: Jan 26 2022 11:07A Dictated by : INA DONOVAN DO This examination was interpreted and the report reviewed and electronically signed by: INA DONOVAN DO on Jan 26 2022 11:12AM EST [id number] [facility] CASE MANAGEMon 01-25-2022 CASE MANAGEM HNO ID: [id number] Author: OSCAR Lopez Service: Social Work Author Type: Clother In Type: Care Mgt Progress Note Filed: 01/25/2022 4:45 PM Note Text: BEHAVIORAL HEALTH SOCIAL WORK PROGRESS NOTE SERVICE DATE: 01/25/2022 SERVICE TIME: 4:31 PM Received PAS/determination results. Copy placed in pt's chart. Pt spoke with human resources representative from [facility] over the phone this afternoon. SW spoke with admissions. Facility will provide decision on acceptance by either 5pm today or early tomorrow morning. Pt tentatively scheduled for discharge tomorrow (01/26) at 2:00pm via ambulance (trip #: [id number]). SW will continue to follow. SIGNATURE: AMERICA Lopez LSW PATIENT NAME: José Manuel Ashton DATE: January 25, 2022 TIME: 4:31 PM [facility] CASE MANAGEM HNO ID: [id number] Author: OSCAR Lopez Service: Social Work Author Type: Clother In Type: Care Mgt Progress Note Filed: 01/25/2022 3:52 PM Note Text: BEHAVIORAL HEALTH SOCIAL WORK PROGRESS NOTE SERVICE DATE: 01/25/2022 SERVICE TIME: 10:41 AM [facility] on unit to complete assessment with pt for PAS/RR. Pt is currently linked with an outpatient psychiatrist (Dr. Inez Leon) at [facility]. Psych follow-up appointment scheduled. SW met with pt this afternoon to discuss facilities. Pt has been accepted [facility]. Awaiting response from [facility]. Pt's 1st choice [facility], and 2nd choice is [facility]. Tentative discharge tomorrow or pending facility acceptance/selection and PAS results. Pt will likely need a COVID test prior to discharge. SW will continue to follow. SIGNATURE: Neela Johnson MSW, COAL MINE INSPECTOR PATIENT NAME: José Manuel Ashton DATE: January 25, 2022 TIME: 10:41 AM [facility] CONSULT PROGon 01-25-2022 CONSULT PROG HNO ID: [id number] Author: Collin Cheema DO Service: Endocrinology Author [...] ER) 500 mg ORAL DAILY Miriam Jennings APRN.PARTS REPRESENTATIVE 500 mg at 01/24/22 0912 venlafaxine ER 75 mg cap(s) (EFFEXOR XR) 75 mg ORAL DAILY WITH BREAKFAST Miriam Jennings APRN.PARTS REPRESENTATIVE 75 mg at 01/24/22 0916 haloperidol 5 mg tab(s) (HALDOL) 5 mg ORAL q 4 H PRN Freda Miller MD Or haloperidol lactate 5 mg short-acting injection (HALDOL) 5 mg INTRAMUSCULAR q 4 H PRN Freda Miller MD benztropine 2 mg injection (COGENTIN) 2 mg INTRAMUSCULAR q 30 MIN PRN Freda Milelr MD diphenhydrAMINE 50 mg injection (BENADRYL) 50 [...] 30 mL ORAL DAILY PRN Teresa Diego APRN.PARTS REPRESENTATIVE acetaminophen 650 mg tab(s) (TYLENOL) 650 mg ORAL q 6 H PRN Teresa Diego APRN.PARTS REPRESENTATIVE insulin lispro injection (rapid acting) (ADMELOG) SUBCUTANEOUS AT BEDTIME Teresa Diego APRN.PARTS REPRESENTATIVE 1 Units at 01/24/22 2100 lisinopril 20 mg tab(s) (ZESTRIL, PRINIVIL) 20 mg ORAL DAILY Teresa Diego, SAW EDGE FUSER CIRCULAR.PARTS REPRESENTATIVE 20 mg at 01/24/22 0913 insulin lispro injection (rapid acting) (ADMELOG) SUBCUTANEOUS w MEALS Teresa Diego APRN.PARTS REPRESENTATIVE 3 Units at 01/24/22 1709 pioglitazone (ACTOS) tab(s) 45 mg 45 mg ORAL DAILY Teresa Diego, SAW EDGE FUSER CIRCULAR.PARTS REPRESENTATIVE 45 mg at 01/24/22 0912 docusate sodium 100 mg cap(s) (COLACE) 100 mg ORAL BID Teresa Diego APRN.PARTS REPRESENTATIVE 100 mg at 01/24/22 2100 polyethylene glycol 3350 17 g packet (MIRALAX, GLYCOLAX) 17 g ORAL DAILY Teresa Diego APRN.PARTS REPRESENTATIVE 17 g at 01/24/22 0912 insulin glargine 33 Units pen (long acting) (LANTUS SOLOSTAR, BASAGLAR KWIKPEN) 33 Units SUBCUTANEOUS AT BEDTIME Teresa Diego APRN.PARTS REPRESENTATIVE 33 Units at 01/24/222099 melatonin 3 mg [...] January 25, 2022 8:42 AM PAGER: [phone] [facility] Comprehensive metabolic 2000 panelon 01-25-2022 Albumin [Mass/Vol] 3.5 g/dL Low 3.9-4.9 [facility] Comment on above: Order Comment: Speci men Type: BLOOD SPECIMEN Ordering Facility: [facility] Address: [address] [place] [address] Performed By: #### 5 8410-2 #### [facility] CLIA [id number] [address] [place], [place] [address] [place] ALP [Catalytic activity/Vol] 109 U/L Normal 38-113 [facility] Comment on above: Order Comment: Speci men Type: BLOOD SPECIMEN Ordering Facility: [facility] Address: [address] [place] [address] Performed By: #### 5 8410-2 #### [facility] CLIA [id number] [address] [place], [place] [address] [place] ALT [Catalytic activity/Vol] 12 U/L Normal 10-54 [facility] Comment on above: Order Comment: Speci men Type: BLOOD SPECIMEN Ordering Facility: [facility] Address: [address] [place], [place] [address] Performed By: #### 5 8410-2 #### [facility] CLIA [id number] [address] [place], [place] [address] [place] Anion gap [Moles/Vol] 13 mmol/L Normal 9-18 [facility] Comment on above: Order Comment: Speci men Type: BLOOD SPECIMEN Ordering Facility: [facility] Address: [address] [place] [address] Performed By: #### 5 8410-2 #### [facility] CLIA [id number] [address] [place], [place] [address] [place] AST [Catalytic activity/Vol] 16 U/L Normal 14-40 [facility] Comment on above: Order Comment: Speci men Type: BLOOD SPECIMEN Ordering Facility: [facility] Address: [address] [place], [place] [address] Performed By: #### 5 8410-2 #### [facility] CLIA [id number] [facility] [place] [address] [place] Bilirubin [Mass/Vol] 0.2 mg/dL Normal 0.2-1.3 [facility] Comment on above: Order Comment: Speci men Type: BLOOD SPECIMEN Ordering Facility: [facility] Address: [address] [place] [address] Performed By: #### 5 8410-2 #### [facility] CLIA [id number] [address] [place] [address] [place] Calcium [Mass/Vol] 9.3 mg/dL Normal 8.5-10.2 [facility] Comment on above: Order Comment: Speci men Type: BLOOD SPECIMEN Ordering Facility: [facility] Address: [address] [place], [place] [address] Performed By: #### 5 8410-2 #### [facility] CLIA [id number] [facility] [place] [address] [place] Chloride [Moles/Vol] 100 mmol/L Normal 97-105 [facility] Comment on above: Order Comment: Speci men Type: BLOOD SPECIMEN Ordering Facility: [facility] Address: [address] [place], [place] [address] Performed By: #### 5 8410-2 #### [facility] CLIA [id number] [address] [place], [place] [address] [place] CO2 [Moles/Vol] 27 mmol/L Normal 22-30 [facility] Comment on above: Order Comment: Speci men Type: BLOOD SPECIMEN Ordering Facility: [facility] Address: [address] [place], [place] [address] Performed By: #### 5 8410-2 #### [facility] CLIA [id number] [address] [place], [place] [address] [place] [facility] Creatinine [Mass/Vol] 1.20 mg/dL Normal 0.73-1.22 [facility] Comment on above: Order Comment: Specjonas vaughan Type: BLOOD SPECIMEN Ordering Facility: [facility] Address: [facility] [address] Performed By: #### 5 8410-2 #### [facility] [id number] [address] [place] [address] [place] ESTIMATED GLOMERULAR FILTRATION RATE 68 mL/min/1.73m??? Normal >=60 [facility] Comment on above: Order Comment: Luz vaughan Type: BLOOD SPECIMEN Ordering Facility: [facility] Address: [address] [place] [address] Result Comment: Breanne mated Glomerular Filtration Rate [...] GFR. Performed By: #### 5 8410-2 #### [facility] IA [id number] [address] [place], [place] [address] [place] Glucose [Mass/Vol] 136 mg/dL High 74-99 [facility] Comment on above: Order Comment: Luz clement Type: BLOOD SPECIMEN Ordering Facility: [facility] Address: [address] [place], [place] [address] Result Comment: The [place] Diabetes Association (ADA) provides guidance for cutoff [...] Standards of Medical Care in Diabetes 2016, [place] Diabetes Association. Diabetes Care. 2016.39(Suppl 1). Performed By: #### 5 8410-2 #### [facility] CLIA [id number] [address] [place] [address] [place] Potassium [Moles/Vol] 4.8 mmol/L Normal 3.7-5.1 [facility] Comment on above: Order Comment: Speci men Type: BLOOD SPECIMEN Ordering Facility: [facility] Address: [address] [place] [address] Performed By: #### 5 8410-2 #### [facility] IA [id number] [address] [place] [address] [place] Protein [Mass/Vol] 6.4 g/dL Normal 6.3-8.0 [facility] Comment on above: Order Comment: Speci men Type: BLOOD SPECIMEN Ordering Facility: [facility] Address: [address] [place] [address] Performed By: #### 5 8410-2 #### [facility] IA [id number] [address] [place] [address] [place] Sodium [Moles/Vol] 140 mmol/L Normal 136-144 [facility] Comment on above: Order Comment: Speci men Type: BLOOD SPECIMEN Ordering Facility: [facility] Address: [address] [place] [address] Performed By: #### 5 8410-2 #### [facility] CLIA [id number] [address] [place] [address] [place] Urea nitrogen [Mass/Vol] 26 mg/dL High 9-24 [facility] Comment on above: Order Comment: Speci men Type: BLOOD SPECIMEN Ordering Facility: [facility] Address: [address] [place] [address] Performed By: #### 5 8410-2 #### [facility] CLIA [id number] [address] [place], [place] [address] [facility] NURSING PROGon 01-25-2022 NURSING PROG HNO ID: [id number] Author: Leslie Pa RN Service: Nursing Author Type: Registered Nurse Type: Nursing Progress Note Filed: 01/25/2022 6:55 PM Note Text: Nursing Progress Note Topic of Note: Daily Note José Manuel Ashton [id number] Assumed care of patient. Patient is awake, [...] This note was completed by: Leslie Pa [facility] SARS-CoV-2 RNA Resp Ql BETO+p robeon 01-25-2022 SARS-CoV-2 (COVID-19) RNA BETO+probe Ql (Resp) COVID 19 RESULT: SARS-CoV-2 (Agent of COVID-19) Not Detected by RT-PCR or equivalent method. This test has been authorized by FDA under an Emergency Use Authorization (EUA). [facility] Comment on above: Performed By: #### 9 4500-6 ####[facility] [id number] [place] [id number] [facility] CASE MANAGEMon 01-24-2022 CASE MANAGEM HNO ID: [id number] Author: Neeal Elizabeth, COAL MINE INSPECTOR Service: Social Work Author Type: Clother In Type: Care Mgt Progress Note Filed: 01/24/2022 4:08 PM Note Text: BEHAVIORAL HEALTH SOCIAL WORK PROGRESS NOTE SERVICE DATE: 01/24/2022 SERVICE TIME: 3:44 PM SW met with pt in [facility] to discuss discharge plans. Pt has a history of noncompliance with medications and appointments. Discussed options of short term SNF stay for rehab and home with home care. Initially, pt states I don't want to go to a assisted in [place]. I want to go to that place at [facility] (meaning [facility] acute rehab).. Informed pt he does [...] going to SNF. Pt agreed for this ad copy writer to begin referral process, and is hopeful to go to a SNF near [facility]. Pt is agreeable to being linked with a psychiatrist in [facility] a well. Submitted PAS via [facility]. Awaiting PAS/determination results. Referrals sent to multiple facilities near [facility]. Awaiting acceptance. Tentative discharge by middle to end of this week pending further stabilization, PAS results, and facility acceptance/selection. SW will need to link pt with a psychiatrist. SW will continue to follow. SIGNATURE: AMERICA Lopez, COAL MINE INSPECTOR PATIENT NAME: José Manuel Ashton DATE: January 24, 2022 TIME: 3:44 PM [facility] CONSULT PROGon 01-24-2022 CONSULT PROG HNO ID: [id number] Author: Collin Cheema DO Service: Endocrinology Author [...] ER) 500 mg ORAL DAILY Miriam Jennings APRN.PARTS REPRESENTATIVE 500 mg at 01/23/22 0859 venlafaxine ER 75 mg cap(s) (EFFEXOR XR) 75 mg ORAL DAILY WITH BREAKFAST Miriam Jennings APRN.PARTS REPRESENTATIVE haloperidol 5 mg tab(s) (HALDOL) 5 mg ORAL q 4 H PRN Freda Mliler MD Or haloperidol lactate 5 mg short-acting [...] 30 mL ORAL DAILY PRN Teresa Diego APRN.PARTS REPRESENTATIVE acetaminophen 650 mg tab(s) (TYLENOL) 650 mg ORAL q 6 H PRN Teresa Diego APRN.PARTS REPRESENTATIVE insulin lispro injection (rapid acting) (ADMELOG) SUBCUTANEOUS AT BEDTIME Teresa Diego APRN.PARTS REPRESENTATIVE 1 Units at 01/23/222044 lisinopril 20 mg tab(s) (ZESTRIL, PRINIVIL) 20 mg ORAL DAILY Teresa Diego, SAW EDGE FUSER CIRCULAR.PARTS REPRESENTATIVE 20 mg at 01/23/22 0859 insulin lispro injection (rapid acting) (ADMELOG) SUBCUTANEOUS w MEALS Teresa Diego APRN.PARTS REPRESENTATIVE 9 Units at 01/23/22 165 pioglitazone (ACTOS) tab(s) 45 mg 45 mg ORAL DAILY Teresa Diego, SAW EDGE FUSER CIRCULAR.PARTS REPRESENTATIVE 45 mg at 01/23/22 0859 docusate sodium 100 mg cap(s) (COLACE) 100 mg ORAL BID Teresa Diego, SAW EDGE FUSER CIRCULAR.PARTS REPRESENTATIVE 100 mg at 01/23/222042 polyethylene glycol 3350 17 g packet (MIRALAX, GLYCOLAX) 17 g ORAL DAILY Teresa Diego, SAW EDGE FUSER CIRCULAR.PARTS REPRESENTATIVE 17 g at 01/23/22 08 insulin glargine 33 Units pen (long acting) (LANTUS SOLOSTAR, BASAGLAR KWIKPEN) 33 Units SUBCUTANEOUS AT BEDTIME Teresa Diego, SAW EDGE FUSER CIRCULAR.PARTS REPRESENTATIVE 33 Units at 01/23/222044 melatonin 3 mg [...] January 24, 2022 8:42 AM PAGER: [phone] [facility] NURSING PROGon 01-24-2022 NURSING PROG HNO ID: [id number] Author: Leslie Pa RN Service: Nursing Author Type: Registered Nurse Type: Nursing Progress Note Filed: 01/24/2022 6:36 PM Note Text: Nursing Progress Note Topic of Note: Daily Note José Manuel Ashton [id number] [phone] Assumed care of patient. Patient is awake, [...] 127. This note was completed by: Leslie [facility] THERAPY NTon 01-24-2022 THERAPY NT HNO ID: [id number] Author: Ester Ball, Student Service: Occupational Therapy [...] I don't want to go to a assisted or receive home OT services because it [...] 61 year old male referred by [facility] for depression. Per Psych consult 01/19/2022 [...] and care. Patient is agreeable. Per ED environmental services worker Roxanne MOORE on 01/17 This ad copy writer assessed patient via face to face who presents alert and oriented x 4, appears overweight and disheveled, speech is within normal limits appropriate to tone, prosody, melody, phonetic, and syntax, thought process is linear and organized, difficulty concentrating at times, and a poor historian,, mood is depressed with flat affect, with impaired judgement and insight into illness. Patient reports that his Service Correspondent sent him to the emergency room for [...] have too many things going on?. This ad copy writer inquires if patient believ (more content not included)... Normal [facility] ALBUMIN/CREAT RATIO RND URon 01-23-2022 Albumin DL <= 20 mg/L (U) [Mass/Vol] 1334.3 mg/L Normal [facility] Comment on above: Order Comment: Specjonas men Type: BLOOD SPECIMEN Ordering Facility: [facility] Address: [address] [place] [address] Performed By: #### 5 8410-2 #### [facility] IA [id number] [address] [place] [address] Albumin/Creatinine (U) [Mass ratio] 1438 mg/g High <30 [facility] Comment on above: Order Comment: Luz vaughan Type: BLOOD SPECIMEN Ordering Facility: [facility] Address: [address] [place] [address] Result Comment: Adul t Male and Female Nephrotic Criteria: <30 mg/g is considered normal to mildly increased 30-300 mg/g is considered moderately increased >300 mg/g is considered severely increased KDIGO. (2013). KDIGO 2012 Clinical Practice Guideline for the Evaluation and Management of Chronic Kidney Disease. Official Journal of the International Society of Nephrology, 3(1), 1-150. Performed By: #### 5 8410-2 #### [facility] CLIA [id number] [address] [place] [address] [place] Creatinine (U) [Mass/Vol] 92.8 mg/dL Normal 20.0-300.0 [facility] Comment on above: Order Comment: Speci men Type: BLOOD SPECIMEN Ordering Facility: [facility] Address: [address] [place] [address] Performed By: #### 5 8410-2 #### [facility] CLIA [id number] [address] [place] [id number] [facility] CONSULTon 01-23-2022 CONSULT HNO ID: [id number] Author: Collin Cheema DO Service: Hospital Medicine [...] not recall if he follows with the sausage linker or not. The patient does report significant [...] quittin.8 Smokeless tobacco: Never Tobacco comments: Smokes [place] Vaping Use Vaping Use: Never used Substance [...] time a week.Disp: 4 EachRfl: 1 Insulin [place], Disposable, (COMFORT EZ PEN NEEDLES) 29 gauge x 1/21 Each once daily.Disp: 100 EachRfl: 3 blood sugar diagnostic (BLOOD GLUCOSE TEST) test shgqq8s/dayDisp: 100 StripRfl: 11 Blood-Glucose Meter monitoring kitFor monitoring sugars 3x/day (patient on insulin)Disp: 1 EachRfl: 1 Lancets lancetsUse as instructed 3x/dayDisp: 100 EachRfl: 11 alcohol swabs (ALCOHOL PREP PADS)Apply 1 application to affected area as directed.Disp: 100 EachRfl: 3 Penicillins Physical Exam BP 132/75 Pulse 80 Temp 36.6 ?C (97.9 ?F) (Oral) Resp (more content not included)... [facility] NURSING PROGon 01-23-2022 NURSING PROG HNO ID: [id number] Author: Huong Black RN Service: Nursing Author [...] Emotional support provided via 1:1. Accu-check before tcryhr=227--8 units Lispro insulin given per sliding scale. C/o lower abdominal discomfort and back pain--declined offerings of Tylenol--Nothing helps. Is calm--sitting in common area @ present time. Q15min safety rds continue. 2234--Compliant with HS meds--took 'whole' with water. Accu-check this ZQ=153; received 1 unit Lispro insulin per sliding [...] Bed alarm on. Q15min safety rds continue. [facility] NURSING PROG HNO ID: [id number] Author: Sloane Lanza RN Service: Behavioral Health [...] ambulate the unit with a wheeled chair. [facility] NURSING PROG HNO ID: [id number] Author: Tanya Valdez RN Service: Nursing Author Type: Registered Nurse Type: Nursing Progress Note Filed: 01/23/2022 6:17 AM Note Text: Nursing Progress Note Patient Name: José Manuel Ashton [facility]60/[id number] Daily Note: Assumed care of pt at [...] This note was completed by: Tanya Valdez [facility] ALLIED HEALTHon 01-22-2022 ALLIED HEALTH HNO ID: [id number] Author: Art Gordon Music Mary Service: Music [...] DATE: January 22, 2022 TIME: 1:11 PM [facility] CONSULTon 01-22-2022 CONSULT HNO ID: [id number] Author: Corky Rodarte MD Service: Urology Author Type: Physician Type: Consults Filed: 01/22/2022 5:58 PM Note Text: [facility] - Consultation JOSÉ MANUEL ASHTON : 1960 AGE: 61 SEX: M [facility]: [id number] [facility]: [facility] LOCATION: 6002 ATTENDING PHYSICIAN: Luis Carlos Short Jr., M.D. DATE OF SERVICE: 01/22/2022 TIME OF SERVICE: 11:09 AM CONSULTING PHYSICIAN: Corky Rodarte M.D. REQUESTING PHYSICIAN: 1. Luis Carlos Short Jr., M.D. 2. Dr. Olivas. REASON FOR THE CONSULTATION: BPH with lower urinary tract symptoms. BRIEF CLINICAL SUMMARY: This 61-year-old man is admitted to [facility] emergently on 01/18/2022 because of psychiatric [...] me to see this gentleman in consultation. Coryk Rodarte M.D. Urology JL:[id number] /[id number] Normal [facility] Comprehensive metabolic 2000 panelon 01-22-2022 Albumin [Mass/Vol] 3.2 g/dL Low 3.9-4.9 [facility] Comment on above: Order Comment: Speci men Type: BLOOD SPECIMENOrdering Facility: [facility] Address: [address] [place] [address] Performed By: #### 2 4323-8 ####[facility] LABORATORYCLIA [id number] [address] OF [facility] ALP [Catalytic activity/Vol] 103 U/L Normal 38-113 [facility] Comment on above: Order Comment: Speci men Type: BLOOD SPECIMENOrdering Facility: [facility] Address: [address] [place] [address] Performed By: #### 2 4323-8 ####Y[facility] LABORATORYCLIA [id number] [address] [place] ALT [Catalytic activity/Vol] 9 U/L Low 10-54 [facility] Comment on above: Order Comment: Speci men Type: BLOOD SPECIMENOrdering Facility: [facility] Address: [address] [place], [place] [address] Performed By: #### 2 4323-8 ####YARSANISM LABORATORYCLIA [id number] [place] [id number] [place] Anion gap [Moles/Vol] 10 mmol/L Normal 9-18 [facility] Comment on above: Order Comment: Speci men Type: BLOOD SPECIMENOrdering Facility: [facility] Address: [address] [place] [address] Performed By: #### 2 4323-8 ####YARSANISM LABORATORYCLIA [id number] [address] [place], [place] [address] [place] AST [Catalytic activity/Vol] 10 U/L Low 14-40 [facility] Comment on above: Order Comment: Speci men Type: BLOOD SPECIMENOrdering Facility: [facility] Address: [address] [place] [address] Performed By: #### 2 4323-8 ####YARSANISM LABORATORYCLIA [id number] [place] [id number] [place] Bilirubin [Mass/Vol] 0.2 mg/dL Normal 0.2-1.3 [facility] Comment on above: Order Comment: Speci men Type: BLOOD SPECIMENOrdering Facility: [facility] Address: [address] [place], [place] [address] Performed By: #### 2 4323-8 ####YARSANISM LABORATORYCLIA [id number] [place] [address] [place] Calcium [Mass/Vol] 9.2 mg/dL Normal 8.5-10.2 [facility] Comment on above: Order Comment: Speci men Type: BLOOD SPECIMENOrdering Facility: [facility] Address: [address] [place], [place] [address] Performed By: #### 2 4323-8 ####YARSANISM LABORATORYCLIA [id number] [place] [address] [facility] [place] Chloride [Moles/Vol] 104 mmol/L Normal 97-105 [facility] Comment on above: Order Comment: Speci men Type: BLOOD SPECIMENOrdering Facility: [facility] Address: [address] [place] [address] Performed By: #### 2 4323-8 ####YARSANISM LABORATORYCLIA [id number] [place] [address] [place] CO2 [Moles/Vol] 26 mmol/L Normal 22-30 [facility] Comment on above: Order Comment: Speci men Type: BLOOD SPECIMENOrdering Facility: [facility] Address: [address] [place] [address] Performed By: #### 2 4323-8 ####YARSANISM LABORATORYCLIA [id number] [address] [place] Creatinine [Mass/Vol] 1.26 mg/dL High 0.73-1.22 [facility] Comment on above: Order Comment: Speci men Type: BLOOD SPECIMENOrdering Facility: [facility] Address: [address] [place] [address] Performed By: #### 2 4323-8 ####YARSANISM LABORATORYCLIA [id number] [address] ESTIMATED GLOMERULAR FILTRATION RATE 64 mL/min/1.73m??? Normal >=60 [facility] Comment on above: Order Comment: Speci men Type: BLOOD SPECIMENOrdering Facility: [facility] Address: [address] [place] [address] Result Comment: Breanne mated Glomerular Filtration Rate [...] actual GFR. Performed By: #### 2 4323-8 ####YARSANISM LABORATORYCLIA [id number] [place] [id number] [place] Glucose [Mass/Vol] 141 mg/dL High 74-99 [facility] Comment on above: Order Comment: Speci men Type: BLOOD SPECIMENOrdering Facility: [facility] Address: [address] [place] [address] Result Comment: The [place] Diabetes Association (ADA) provides guidance for cutoff [...] Standards of Medical Care in Diabetes 2016, [place] [employer]. Diabetes Care. 2016.39(Suppl 1). Performed By: #### 2 4323-8 ####YARSANISM LABORATORYCLIA [id number] [place] [id number] [place] Potassium [Moles/Vol] 4.2 mmol/L Normal 3.7-5.1 [facility] Comment on above: Order Comment: Speci men Type: BLOOD SPECIMENOrdering Facility: [facility] Address: [address] [place] [address] Performed By: #### 2 4323-8 ####YARSANISM LABORATORYCLIA [id number] [place] [address] [place] Protein [Mass/Vol] 5.7 g/dL Low 6.3-8.0 [facility] Comment on above: Order Comment: Speci men Type: BLOOD SPECIMENOrdering Facility: [facility] Address: [address] [place] [address] Performed By: #### 2 4323-8 ####YARSANISM LABORATORYCLIA [id number] [address] Sodium [Moles/Vol] 140 mmol/L Normal 136-144 [facility] Comment on above: Order Comment: Speci men Type: BLOOD SPECIMENOrdering Facility: [facility] Address: [address] [place] [address] Performed By: #### 2 4323-8 ####YARSANISM LABORATORYCLIA [id number] [address] Urea nitrogen [Mass/Vol] 22 mg/dL Normal 9-24 [facility] Comment on above: Order Comment: Speci men Type: BLOOD SPECIMENOrdering Facility: [facility] Address: [address] [place] [address] Performed By: #### 2 4323-8 ####YARSANISM LABORATORYCLIA [id number] [address] NURSING PROGon 01-22-2022 NURSING PROG HNO ID: [id number] Author: Myrna Rowland RN Service: ? Author Type: Registered Nurse Type: Nursing Progress Note Filed: 01/22/2022 7:05 PM Note Text: Nursing Progress Note Patient Name: José Manuel Ashton Patient Location: [address]- Daily Note: 0700 - Assumed care [...] This note was completed by: Myrna Rowland [facility] NURSING PROG HNO ID: [id number] Author: Natasha Levine RN Service: Nursing Author Type: Registered Nurse Type: Nursing Progress Note Filed: 01/22/2022 6:48 AM Note Text: Nursing Progress Note Patient Name: José Manuel Ashton Patient Location: [address]/[id number]- Daily Note: [id number] A/O x 3 and out in common [...] This note was completed by: Natasha Levine [facility] Bacteria Ur Culton 2 Bacteria identified Cx Nom (U) ORGANISM ID: 1 <10,000 CFU/ml Mixed microbiota No further workup. Mixed microbiota can be due to???urine???contamination with skin bacteria at time of collection or presence of a long-term urinary catheter. If a new culture is needed, please consider re-education of the patient on proper midstream collection technique or straight catheterization for???urine???collection. [facility] Comment on above: Performed By: #### 6 30-4 ####[facility] LABCLIA [id number] [place] [address] [place] CASE MGT INIT ASSESon 2021 CASE MGT INIT SANDOVAL HNO ID: [id number] Author: OSCAR Lopez Service: Social Work Author Type: Clother In Type: Care Mgt Initial Assessment Filed: 01/21/2022 11:16 AM Note Text: BEHAVIORAL HEALTH SOCIAL WORK/CARE MANAGEMENT ASSESSMENT AND DISCHARGE PLAN SERVICE DATE: 01/21/2022 SERVICE TIME: 9:14 AM Reason for Admission: Per intake note on 01/19/2022: Nature of the crisis: depression leading to medication noncompliance Presenting Problem: José Manuel Ashton is a 61 year old male referred by [facility] for depression. Per Psych consult [...] and care. Patient is agreeable. Per ED environmental services worker Roxanne MOORE on 01/17 This ad copy writer assessed patient via face to face who presents alert and oriented x 4, appears overweight and disheveled, speech is within normal limits appropriate to tone, prosody, melody, phonetic, and syntax, thought process is linear and organized, difficulty concentrating at times, and a poor historian,, mood is depressed with flat affect, with impaired judgement and insight into illness. Patient reports that his Service Correspondent sent him to the emergency room for [...] have too many things going on?. This ad copy writer inquires if patient believes he will [...] that he has been forced to a assisted in the past for not caring for himself. This ad copy writer discussed with patient potential for a [facility] nurse to come into home to assist with his medication management to ensure he is caring for self properly and taking medications. Patient has been calm and cooperative in the ED with no restraints or medications administered. Legal Status: Voluntary Important Contacts: Meche Sanders (sister) [phone] Marek Ashton (Brother) [phone] Does the patient/human resources representative consent to contact with the above [...] Manuel Ashton was born and raised in [place], [place] by his mother and father. Pt is the youngest of 17 children. 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 Support System: L (more content not included)... [facility] CONSULTon 01-21-2022 CONSULT HNO ID: [id number] Author: Philip Mayfield DPM Service: Podiatry Author [...] quittin.8 Smokeless tobacco: Never Tobacco comments: Smokes [place] Vaping Use Vaping Use: Never used Substance [...] 4 Each, Rfl: 1, Not Taking Insulin [place], Disposable, (COMFORT EZ PEN NEEDLES) 29 gauge [...] sodiu (more content not included)... Normal [facility] HAV IgM Ser Qlon 01-21-2022 HAV IgM Ql (S) Negative Normal Negative [facility] Comment on above: Order Comment: Speci men Type: BLOOD SPECIMEN [facility]ing [facility] Address: [address] [place] [address] Result Comment: No e vidence of recent infection with Hepatitis A virus. Performed By: #### 5 8410-2 #### [facility] CLIA [id number] [address] [place] [address] OF [facility] HBV core IgM Ser Qlon 2021 HBV core IgM Ql (S) Negative Normal Negative [facility] Comment on above: Order Comment: Speci men Type: BLOOD SPECIMEN [facility]ing [facility]: [facility] Address: [address] [place] [address] Result Comment: No e vidence of recent infection with Hepatitis B virus. Should recent infection be suspected, repeat testing may be considered 3-4 weeks after this draw. Performed By: #### 5 8410-2 #### [facility] CLIA [id number] [address] [place] [address] HBV surface Ab IA Ql (S)on 1 HBV surface Ag Ql (S) Negative Normal Negative [facility] Comment on above: Order Comment: [facility] Type: BLOOD SPECIMEN [facility]ing [facility] Address: [address] [place] [address] Performed By: #### 5 8410-2 #### [facility] CLIA [id number] [facility] [address] [place] HCV RNA SerPl BETO+probe-aCnc on 01-21-2022 HCV RNA BETO+probe Qn Not detected Normal HCV RNA not detected by PCR. [facility] Comment on above: Order Comment: [facility] Type: BLOOD SPECIMENOrdering Facility: [facility] Address: [address] [place] [address] Performed By: #### 1 1011-4 ####[facility] LABCLIA [id number] [facility] [id number] HISTORY PHYSICALon HISTORY PHYSICAL HNO ID: [id number] Author: Yarely Dejesus MD Service: Psychiatry Author Type: Resident Type: HANDP Filed: 01/20/2022 11:49 PM Note Text: -- Attestation signed by Luis Carlos Shrot Jr., MD at 01/21/2022 2:08 PM Patient [...] house, and outpatient follow up with educator, meter record clerk could be helpful. Luis Carlos Short Jr, [...] and care. Patient is agreeable. Per ED environmental services worker Roxanne MOORE on 01/17 This ad copy writer assessed patient via face to face who presents alert and oriented x 4, appears overweight and disheveled, speech is within normal limits appropriate to tone, prosody, melody, phonetic, and syntax, thought process is linear and organized, difficulty concentrating at times, and a poor historian,, mood is depressed with flat affect, with impaired judgement and insight into illness. Patient reports that his Service Correspondent sent him to the emergency room for [...] have too many things going on?. This ad copy writer inquires if patient believes he will [...] denies any ho (more content not included)... [facility] NURSING PROGon 01-21-2022 NURSING PROG HNO ID: [id number] Author: Huong Glass RN Service: Nursing Author Type: Counselor Type: Nursing Progress Note Filed: 01/21/2022 7:35 PM Note Text: [phone] Assumed care of pt sitting on edge [...] unsteady gait physical therapy consult in. This ad copy writer provided pt with wheelchair and front wheeled walker. Medication compliant whole with water. Accu checks AC AND HS with sliding scale coverage. Continent of bowel and bladder set up for ADL's. Calm and cooperative with care, pleasant and social with peers. Participated in group activities. Security notified of personal vehicle in parking lot. Safety precautions maintained. [facility] Reagin and Treponema pallidu m IgG and IgM [Interp]on 01-21-2022 SYPHILIS INTERPRETATION Cannot exclude recent Treponemal infection if specimen collected within 7-10 days after appearance of suspect lesions or 2-3 weeks after an exposure. Clinical correlation is required. [facility] Comment on above: Order Comment: Speci men Type: BLOOD SPECIMEN [facility] Address: [address] [place] [address] Performed By: #### 5 8410-2 #### [facility] CLIA [id number] [address] [place] [address] [place] T. pallidum IgG+IgM IA Ql (S) Non-Reactive Normal Nonreactive [facility] Comment on above: Order Comment: Speci men Type: BLOOD SPECIMEN Ordering [facility]: [facility] Address: [address] [place] [address] Performed By: #### 5 8410-2 #### [facility] CLIA [id number] [address] [place] [address] [facility] THERAPY NTon 01-21-2022 THERAPY NT HNO ID: [id number] Author: Prasanth Jeronimo, PT Service: Physical Therapy Author Type: Physical Therapist Type: Therapy (PT/OT/Speech/Resp) Filed: 01/21/2022 2:32 PM Note Text: Physical Therapy Evaluation SERVICE DATE: 01/21/2022 SERVICE TIME: 1341 to 1408 ROOM: [place] [address] Recommended Discharge Disposition: Subacute/SNF Recommended Discharge Disposition [...] emergency department at the direction of his marketing operations associate, Dr. Kennedy for psych eval Relevant Past [...] doing here? They sent me to the [facility] CURRENT FUNCTIONAL STATUS: Most recent performance Current [...] Patient /Caregiver Goal (more content not included)... [facility] URINALYSIS, REFLEX MICROSCOP ICon 01-21-2022 Bacteria LM.HPF (Urine sed) [#/Area] Rare Abnormal None Seen [facility] Comment on above: Order Comment: Speci men Type: URINE SPECIMENOrdering Facility: [facility] Address: [address] [place] [address] Performed By: #### L [id number] ####YARSAN[facility] LABORATORYCLIA [id number] [address] [place], [place] [address] [place] Bilirubin Ql (U) Negative Normal Negative [facility] Comment on above: Order Comment: Speci men Type: URINE SPECIMENOrdering Facility: [facility] Address: [address] [place] [address] Performed By: #### L [id number] ####Y[facility]AN[facility] LABORATORYCLIA [id number] [address] [place] Clarity (Unsp spec) Clear Normal Clear [facility] Comment on above: Order Comment: Speci men Type: URINE SPECIMENOrdering Facility: [facility] Address: [address] [place] [address] Performed By: #### L [id number] ####[facility] LABORATORYCLIA [id number] [place] [id number] [place] Color (U) Yellow Normal Yellow [facility] Comment on above: Order Comment: Speci men Type: URINE SPECIMENOrdering Facility: [facility] Address: [address] [place] [address] Performed By: #### L [id number] ####[facility] LABORATORYCLIA [id number] [place] [id number] [place] Glucose Test strip (U) [Mass/Vol] 2+ Abnormal Negative [facility] Comment on above: Order Comment: Speci men Type: URINE SPECIMENOrdering Facility: [facility] Address: [address] [place] [address] Performed By: #### L [id number] ####[facility] LABORATORYCLIA [id number] [address] [place] [address] [place] [address] [place] Hemoglobin Ql (U) 1+ Abnormal Negative [facility] Comment on above: Order Comment: Speci men Type: URINE SPECIMENOrdering Facility: [facility] Address: [address] [place] [address] Performed By: #### L [id number] ####[facility] LABORATORYCLIA [id number] [address] [place], [place] [address] [place] Ketones Ql (U) Trace Abnormal Negative [facility] Comment on above: Order Comment: Speci men Type: URINE SPECIMENOrdering Facility: [facility] Address: [address] [place] [address] Performed By: #### L [id number] ####Y[facility] LABORATORYCLIA [id number] [address] [place], [place] [address] [place] Leukocyte esterase Test strip Ql (U) Negative Normal Negative [facility] Comment on above: Order Comment: Speci men Type: URINE SPECIMENOrdering Facility: [facility] Address: [address] [place] [address] Performed By: #### L [id number] ####[facility] LABORATORYCLIA [id number] [address] [place], [place] [address] [place] Nitrite Ql (U) Negative Normal Negative [facility] Comment on above: Order Comment: Speci men Type: URINE SPECIMENOrdering Facility: [facility] Address: [address] [place] [address] Performed By: #### L [id number] ####[facility] LABORATORYCLIA [id number] [address] [place], [place] [address] [place] pH (U) 5.5 [pH] Normal 5.0-8.0 [facility] Comment on above: Order Comment: Speci men Type: URINE SPECIMENOrdering Facility: [facility] Address: [address] [place] [address] Performed By: #### L [id number] ####[facility] LABORATORYCLIA [id number] [address] Protein (U) [Mass/Vol] Normal [facility] Comment on above: Order Comment: Speci men Type: URINE SPECIMENOrdering Facility: [facility] Address: [address] [place] [address] Result Comment: Visi ble blood causes falsely elevated results for analyte Protein. Due to this limitation, Protein will not be reported for patients whose urine contains visible blood. Performed By: #### L [id number] ####[facility] LABORATORYCLIA [id number] [place] [address] [place] RBC LM.HPF (Urine sed) [#/Area] 0-3 /HPF Normal 0-3 /HPF [facility] Comment on above: Order Comment: Speci men Type: URINE SPECIMENOrdering Facility: [facility] Address: [address] [place] [address] Performed By: #### L [id number] ####[facility] LABORATORYCLIA [id number] [place] [address] [place] Specific gravity (U) [Rel density] >=1.030 High 1.005-1.030 [facility] Comment on above: Order Comment: Speci men Type: URINE SPECIMENOrdering Facility: [facility] Address: [address] [place], [place] [address] Performed By: #### L [id number] ####[facility] LABORATORYCLIA [id number] [place] [address] [place] Urobilinogen Ql (U) 0.2 EU/dL Normal 0.2-1.0 EU/dL [facility] Comment on above: Order Comment: Speci men Type: URINE SPECIMENOrdering Facility: [facility] Address: [address] [place] [address] Performed By: #### L [id number] ####[facility] LABORATORYCLIA [id number] [place] [id number] [place] WBC LM.HPF (Urine sed) [#/Area] 0-5 /HPF Normal 0-5 /HPF [facility] Comment on above: Order Comment: Speci men Type: URINE SPECIMENOrdering Facility: [facility] Address: [address] [place] [address] Performed By: #### L [id number] ####[facility] LABORATORYCLIA [id number] [place] [id number] [place] Basic metabolic 2000 panelon 01-20-2022 Anion gap [Moles/Vol] 8 mmol/L Low 9-18 [facility] Comment on above: Order Comment: Speci men Type: BLOOD SPECIMEN Ordering Facility: [facility] Address: [address] [place] [address] Performed By: #### 5 8410-2 #### [facility] [place] [id number] [address] [place] [address] [place] Calcium [Mass/Vol] 9.1 mg/dL Normal 8.5-10.2 [facility] Comment on above: Order Comment: Speci men Type: BLOOD SPECIMEN Ordering Facility: [facility] Address: [address] [place] [address] Performed By: #### 5 8410-2 #### [facility] CLIA [id number] [address] [place] [id number] [place] Chloride [Moles/Vol] 103 mmol/L Normal 97-105 [facility] Comment on above: Order Comment: Speci men Type: BLOOD SPECIMEN Ordering Facility: [facility] Address: [address] [place] [address] Performed By: #### 5 8410-2 #### [facility] CLIA [id number] [address] [place], [place] [address] [place] CO2 [Moles/Vol] 27 mmol/L Normal 22-30 [facility] Comment on above: Order Comment: Brooksjonas vaughan Type: BLOOD SPECIMEN Ordering Facility: [facility] Address: [address] [place] [address] Performed By: #### 5 8410-2 #### [facility] CLIA [id number] [address] [place], [place] [address] [place] Creatinine [Mass/Vol] 1.10 mg/dL Normal 0.73-1.22 [facility] Comment on above: Order Comment: Luz clement Type: BLOOD SPECIMEN Ordering Facility: [facility] Address: [address] [place] [address] Performed By: #### 5 8410-2 #### [facility]ITAL[facility] [id number] [facility] [place] [id number] [place] ESTIMATED GLOMERULAR FILTRATION RATE 76 mL/min/1.73m??? Normal >=60 [facility] Comment on above: Order Comment: Luz clement Type: BLOOD SPECIMEN Ordering Facility: [facility] Address: [address] [place] [address] Result Comment: Breanne mated Glomerular Filtration Rate [...] GFR. Performed By: #### 5 8410-2 #### [facility] CLIA [id number] [address] [place], [place] [address] [place] Glucose [Mass/Vol] 173 mg/dL High 74-99 [facility] Comment on above: Order Comment: Luz vaughan Type: BLOOD SPECIMEN [facility] [facility] Address: [address] [place] [address] Result Comment: The [place] Diabetes Association (ADA) provides guidance for cutoff [...] Standards of Medical Care in Diabetes 2016, [place] [employer] Association. Diabetes Care. 2016.39(Suppl 1). Performed By: #### 5 8410-2 #### [facility] CLIA [id number] [address] [place] [address] [place] Potassium [Moles/Vol] 3.8 mmol/L Normal 3.7-5.1 [facility] Comment on above: Order Comment: Luz vaughan Type: BLOOD SPECIMEN Ordering Facility: [facility] Address: [address] [place] [address] Performed By: #### 5 8410-2 #### [facility] CLIA [id number] [address] [place] [address] [place] Sodium [Moles/Vol] 138 mmol/L Normal 136-144 [facility] Comment on above: Order Comment: Luz vaughan Type: BLOOD SPECIMEN Ordering Facility: [facility] Address: [address] [place] [address] Performed By: #### 5 8410-2 #### [facility] CLIA [id number] [address] [place], [place] [address] [place] Urea nitrogen [Mass/Vol] 17 mg/dL Normal 9-24 [facility] Comment on above: Order Comment: Luz vaughan Type: BLOOD SPECIMEN Ordering Facility: [facility] Address: [address] [place] [address] Performed By: #### 5 8410-2 #### [facility] CLIA [id number] [address] [place], [place] [address] [place] CBC panel Auto (Bld)on 01-20 Erythrocyte distribution width (RBC) [Ratio] 12.8 % Normal 11.5-15.0 [facility] Comment on above: Order Comment: Speci men Type: BLOOD SPECIMENOrdering Facility: [facility] Address: [address] [place] [address] Performed By: #### 5 8410-2 ####[facility] [id number] [address] Hematocrit (Bld) [Volume fraction] 41.1 % Normal 39.0-51.0 [facility] Comment on above: Order Comment: Speci men Type: BLOOD SPECIMENOrdering Facility: [facility] Address: [address] [place] [address] Performed By: #### 5 8410-2 ####[facility] [id number] [address] Hemoglobin (Bld) [Mass/Vol] 13.8 g/dL Normal 13.0-17.0 [facility] Comment on above: Order Comment: Speci men Type: BLOOD SPECIMENOrdering Facility: [facility] Address: [address] [place] [address] Performed By: #### 5 8410-2 ####[facility] [id number] [address] [place] MCH (RBC) [Entitic mass] 28.6 pg Normal 26.0-34.0 [facility] Comment on above: Order Comment: Speci men Type: BLOOD SPECIMENOrdering Facility: [facility] Address: [address] [place] [address] Performed By: #### 5 8410-2 ####[facility]ORYCLIA [id number] [address] [place] MCHC (RBC) [Mass/Vol] 33.6 g/dL Normal 30.5-36.0 [facility] Comment on above: Order Comment: Speci men Type: BLOOD SPECIMENOrdering Facility: [facility] Address: [address] [place], [place] [address] Performed By: #### 5 8410-2 ####[facility]ORYCLIA [id number] [address] MCV (RBC) [Entitic vol] 85.1 fL Normal 80.0-100.0 [facility] Comment on above: Order Comment: Speci men Type: BLOOD SPECIMENOrdering Facility: [facility] Address: [address] [place], [place] [address] Performed By: #### 5 8410-2 ####[facility] [id number] [address] [place] Nucleated RBC (Bld) [#/Vol] 10*3/uL Normal <0.01 [facility] Comment on above: Order Comment: Speci men Type: BLOOD SPECIMENOrdering Facility: [facility] Address: [address] [place], [place] [address] Performed By: #### 5 8410-2 ####[facility]ORYCLIA [id number] [place] [id number] [place] Platelet mean volume (Bld) [Entitic vol] 10.0 fL Normal 9.0-12.7 [facility] Comment on above: Order Comment: Speci men Type: BLOOD SPECIMENOrdering Facility: [facility] Address: [address] [place], [place] [address] Performed By: #### 5 8410-2 ####[facility]ORY[facility]IA [id number] [place] [id number] [place] Platelets (Bld) [#/Vol] 246 10*3/uL Normal 150-400 [facility] Comment on above: Order Comment: Speci men Type: BLOOD SPECIMENOrdering Facility: [facility] Address: [address] [place], [place] [address] Performed By: #### 5 8410-2 ####[facility]ORYCLIA [id number] [place] [id number] [facility] RBC (Bld) [#/Vol] 4.83 10*6/uL Normal 4.20-6.00 [facility] Comment on above: Order Comment: Speci men Type: BLOOD SPECIMENOrdering Facility: [facility] Address: [address] [place] [address] Performed By: #### 5 8410-2 ####[facility] [id number] [place] [id number] [facility] WBC (Bld) [#/Vol] 6.90 10*3/uL Normal 3.70-11.00 [facility] Comment on above: Order Comment: Speci men Type: BLOOD SPECIMENOrdering Facility: [facility] Address: [address] [place] [address] Performed By: #### 5 8410-2 ####[facility] [id number] [place] [id number] [facility] CNDSon 01-20-2022 CNDS HNO ID: [id number] Author: Kylah Orantes MD Service: ? Author Type: Physician Type: Discharge Summary Filed: 02/06/2022 12:28 PM Note Text: Internal Medicine discharge [facility] PATIENT NAME: José Manuel Ashton Discharge [...] (A) 4.2 - 5.6 % Final Comment: Location:[facility], [address] [place] [address], [facility] Point of care (POC) Hemoglobin A1c [...] specific diabetes management situations: The POC device palliative care nurse provides a normal range of 4.2% to 6.5% for the HGBA1C POC test. However, the [place] Diabetes Association guidelines indicate that patients with [...] 26 Units subcutaneously daily at bedtime. Insulin [place] (Disposable) 29 gauge x 1/2 Commonly known [...] one time a week. Kylah Orantes MD [facility] Lipid 1996 panelon 2 Cholesterol [Mass/Vol] 260 mg/dL High <200 [facility] Comment on above: Order Comment: Speci men Type: BLOOD SPECIMENOrdering Facility: [facility] Address: [address] [place] [address] Result Comment: <200 mg/dL, Desirable 200-239 mg/dL, Borderline high >239 mg/dL, High Performed By: #### 2 4331-1 ####[facility]CLIA [id number] [address] Cholesterol in HDL [Mass/Vol] 40 mg/dL Normal >39 [facility] Comment on above: Order Comment: Speci [facility] Type: BLOOD SPECIMENOrdering Facility: [facility] Address: [address] [place] [address] Result Comment: 40-5 9 mg/dL, Acceptable >59 mg/dL, High: Negative risk factor for coronary heart disease <40 mg/dL, Low: Positive risk factor for coronary heart disease Performed By: #### 2 4331-1 ####[facility]ORYCLIA [id number] [address] OF [facility] Cholesterol in LDL [Mass/Vol] 162 mg/dL High <100 [facility] Comment on above: Order Comment: Speci men Type: BLOOD SPECIMENOrdering Facility: [facility] Address: [address] [place] [address] Result Comment: <100 mg/dL, Optimal 100-129 mg/dL, Near optimal/above optimal 130-159 mg/dL, Borderline high 160-189 mg/dL, High >189 mg/dL, Very high Secondary prevention optimal LDL Cholesterol levels are recommended to be < 70 mg/dL Performed By: #### 2 4331-1 ####[facility]ORYCLIA [id number] [address] STATES OF [facility] Cholesterol in LDL/Cholesterol in HDL [Mass ratio] 4.05 {ratio} High <2.54 [facility] Comment on above: Order Comment: Speci men Type: BLOOD SPECIMENOrdering Facility: [facility] Address: [address] [place] [address] Result Comment: Refe rence: 1. National Cholesterol Education Program ATP III Guideline At-A-Glance Quick Desk Reference: National Heart, Lung, and Blood Goldonna. National Institutes of Health. 2001: NIH Publication No. 01-3305. 2. An International Atherosclerosis Society position paper: global recommendations for the management of dyslipidemia: executive summary, Atherosclerosis. 2014: 232(2):410-413. Performed By: #### 2 4331-1 ####[facility]CLIA [id number] [address] [place] Cholesterol in VLDL [Mass/Vol] 58 mg/dL High <30 [facility] Comment on above: Order Comment: Speci men Type: BLOOD SPECIMENOrdering Facility: [facility] Address: [address] [place] [address] Performed By: #### 2 4331-1 ####[facility]ORYCLIA [id number] [place] [id number] [place] Cholesterol non HDL [Mass/Vol] 220 mg/dL High <130 [facility] Comment on above: Order Comment: Speci men Type: BLOOD SPECIMENOrdering Facility: [facility] Address: [address] [place] [address] Result Comment: <130 mg/dL, Optimal 130-159 mg/dL, Near optimal/above optimal 160-189 mg/dL, Borderline high 190-219 mg/dL, High >219 mg/dL, Very high Secondary prevention optimal non HDL Cholesterol levels are recommended to be <100 mg/dL Performed By: #### 2 4331-1 ####[facility]ORYCLIA [id number] [place] [id number] [facility] Cholesterol.total/Cho lesterol in HDL [Mass ratio] 6.50 {ratio} High <5.10 [facility] Comment on above: Order Comment: Speci men Type: BLOOD SPECIMENOrdering Facility: [facility] Address: [address] [place] [address] Performed By: #### 2 4331-1 ####[facility]ORYCLIA [id number] [address] FASTING TIME Normal [facility] Comment on above: Order Comment: Speci men Type: BLOOD SPECIMENOrdering Facility: [facility] Address: [address] [place] [address] Result Comment: Unkn own Performed By: #### 2 4331-1 ####[facility]ORYCLIA [id number] [address] Triglyceride [Mass/Vol] 291 mg/dL High <150 [facility] Comment on above: Order Comment: Speci men Type: BLOOD SPECIMENOrdering Facility: [facility] Address: [address] [place] [address] Result Comment: <150 mg/dL, Normal 150-199 mg/dL, Borderline high 200-499 mg/dL, High >499 mg/dL, Very high Performed By: #### 2 4331-1 ####[facility]CLIA [id number] [place] [id number] [facility] NURSING PROGon 01-20-2022 NURSING PROG HNO ID: [id number] Author: Keyla Trammell RN Service: Nursing Author Type: Registered Nurse Type: Nursing Progress Note Filed: 01/21/2022 7:01 AM Note Text: Nursing Progress note: ([id number]) Start of shift there was an order to transfer Patient to 6D. Pt is AANDOx3. Start of shift Pt seen sitting at the edge of his bed, appears disheveled and withdrawn. Pt has poor eye contact and looks down at the ground while talking with this ad copy writer.Pt reports feeling angry and frustrated that [...] belongings were transferred to in stable condition. [facility] NURSING PROG HNO ID: [id number] Author: Chele Mcginnis RN Service: Nursing Author [...] losing his balance. Spoke with my nurse transaction advisory services manager to possibly get the patient transferred to . After speaking with clinical nurse transaction advisory services manager she recommended transfer to geriatric psych unit. Nature of the crisis: depression leading to medication noncompliance Presenting Problem: José Manuel Ashton is a 61 year old male referred by [facility] for depression. Per Psych consult 01/19/2022 [...] care. Patient is agreeable. Per ED BH environmental services worker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 Assist with AD Completion: Yes [...] discharge within 30 days: No 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 Normal [facility] CBC panel Auto (Bld)on 01-18 Erythrocyte distribution width (RBC) [Ratio] 13.0 % Normal 11.5-15.0 [facility] Comment on above: Order Comment: Speci men Type: BLOOD SPECIMEN Ordering Facility: [facility] Address: [address] [address] Performed By: #### 5 8410-2 #### [facility] IA [id number] [address] [place] [address] [place] Hematocrit (Bld) [Volume fraction] 41.5 % Normal 39.0-51.0 [facility] Comment on above: Order Comment: Speci men Type: BLOOD SPECIMEN Ordering Facility: [facility] Address: [address] [place] [address] Performed By: #### 5 8410-2 #### [facility] IA [id number] [address] [place] [address] [place] Hemoglobin (Bld) [Mass/Vol] 13.9 g/dL Normal 13.0-17.0 [facility] Comment on above: Order Comment: Speci men Type: BLOOD SPECIMEN Ordering Facility: [facility] Address: [address] [place] [address] Performed By: #### 5 8410-2 #### [facility] IA [id number] [address] [place] [address] [place] [facility] MCH (RBC) [Entitic mass] 28.8 pg Normal 26.0-34.0 [facility] Comment on above: Order Comment: Speci men Type: BLOOD SPECIMEN Ordering Facility: [facility] Address: [address] [place] [address] Performed By: #### 5 8410-2 #### [facility] IA [id number] [address] [place] [address] [place] MCHC (RBC) [Mass/Vol] 33.5 g/dL Normal 30.5-36.0 [facility] Comment on above: Order Comment: Speci men Type: BLOOD SPECIMEN Ordering Facility: [facility] Address: [address] [place] [address] Performed By: #### 5 8410-2 #### [facility] IA [id number] [address] [place] [address] [place] MCV (RBC) [Entitic vol] 86.1 fL Normal 80.0-100.0 [facility] Comment on above: Order Comment: Speci men Type: BLOOD SPECIMEN Ordering Facility: [facility] Address: [address] [place], [place] [address] Performed By: #### 5 8410-2 #### [facility] CLIA [id number] [address] [place] [address] [place] Nucleated RBC (Bld) [#/Vol] 10*3/uL Normal <0.01 [facility] Comment on above: Order Comment: Speci men Type: BLOOD SPECIMEN Ordering Facility: [facility] Address: [address] [place], [place] [address] Performed By: #### 5 8410-2 #### [facility] CLIA [id number] [address] [place] [address] [place] Platelet mean volume (Bld) [Entitic vol] 9.8 fL Normal 9.0-12.7 [facility] Comment on above: Order Comment: Speci men Type: BLOOD SPECIMEN Ordering Facility: [facility] Address: [address] [place], [place] [address] Performed By: #### 5 8410-2 #### [facility] IA [id number] [address] [place] [address] [place] Platelets (Bld) [#/Vol] 258 10*3/uL Normal 150-400 [facility] Comment on above: Order Comment: Speci men Type: BLOOD SPECIMEN Ordering Facility: [facility] Address: [address] [place], [place] [address] Performed By: #### 5 8410-2 #### [facility] CLIA [id number] [address] [place] [address] [place] RBC (Bld) [#/Vol] 4.82 10*6/uL Normal 4.20-6.00 [facility] Comment on above: Order Comment: Speci men Type: BLOOD SPECIMEN Ordering Facility: [facility] Address: [facility] [place] [address] Performed By: #### 5 8410-2 #### [facility] IA [id number] [address] [place], [place] [address] [facility] WBC (Bld) [#/Vol] 6.34 10*3/uL Normal 3.70-11.00 [facility] Comment on above: Order Comment: Speci men Type: BLOOD SPECIMEN Ordering Facility: [facility] Address: [address] [place] [address] Performed By: #### 5 8410-2 #### [facility] [id number] [address] [place], [place] [address] [facility] CONSULTon 01-18-2022 CONSULT HNO ID: [id number] Author: Rafal Carroll PA-C Service: Psychiatry Author Type: Physician Drying Room Operator Type: Consults Filed: 01/19/2022 3:08 PM [...] to the ED as recommended by his marketing operations associate for a psychiatric evaluation in the context of poor compliance to treatment. 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 Kennedy for psych eval who saw [...] Was prescribed Wellbutrin, but didn't take. Per [facility], his last psych visit was in 05/31/2021 [...] 01/17/2022 UETOH <11 (more content not included)... [facility] CT ABD/PEL WO IVCONon 2021 CT [...] annulus. No pericardial effusion or pericardial thickening. Grain Elevator Man (topogram) images: No additional findings. IMPRESSION: No acute process identified involving the abdomen or pelvis. There are findings possibly related to constipation. Findings of remote granulomatous disease. Diffuse mural thickening of the bladder likely related to chronic bladder outlet obstruction. Additional findings noted above. Filler Blender: ROBERTA Transcribe Date/Time: Jan 18 2022 11:14A Dictated by : PRASANTH DARNELL MD This examination was interpreted and the report reviewed and electronically signed by: PRASANTH DARNELL MD on Jan 18 2022 11:21AM EST [id number] [facility] ED NOTEon 01-18-2022 ED NOTE HNO ID: [id number] Author: Los Nguyen RN Service: ? Author Type: Registered Nurse Type: ED Notes Filed: 01/17/2022 11:22 PM Note Text: Report given to Rebecca, pt ready to be transferred at this time. [facility] ED NOTE HNO ID: [id number] Author: Los Nguyen RN Service: ? Author Type: Registered Nurse Type: ED Notes Filed: 01/17/2022 11:14 PM Note Text: POC 254 [facility] HISTORY PHYSICALon 2 HISTORY PHYSICAL HNO ID: [id number] Author: Kylah Orantes MD Service: ? Author Type: Physician Type: HANDP Filed: 02/06/2022 12:27 PM Note Text: [facility] MANUEL ASHTON : 1960 AGE: 61 SEX: M CSN: [id number] [facility]: [facility] LOCATION: [facility] ATTENDING PHYSICIAN: Kylah Orantes M.D. DATE OF [...] emergency department at the direction of his marketing operations associate, Dr. Kennedy for psych eval who saw [...] quittin.8 Smokeless tobacco: Never Tobacco comments: Smokes [place] Vaping Use Vaping Use: Never used Substance [...] Alb (more content not included)... Normal [facility] CBC panel Auto (Bld)on 01-17 Erythrocyte distribution width (RBC) [Ratio] 12.9 % Normal 11.5-15.0 [facility] Comment on above: Order Comment: Speci men Type: BLOOD SPECIMEN Ordering Facility: [facility] Address: [address] [place] [address] Performed By: #### 5 8410-2 #### [facility] CLIA [id number] [address] [place] [address] OF [facility] Hematocrit (Bld) [Volume fraction] 49.3 % Normal 39.0-51.0 [facility] Comment on above: Order Comment: Speci men Type: BLOOD SPECIMEN Ordering Facility: [facility] Address: [address] [place] [address] Performed By: #### 5 8410-2 #### [facility] CLIA [id number] [address] [place] [address] Hemoglobin (Bld) [Mass/Vol] 16.1 g/dL Normal 13.0-17.0 [facility] Comment on above: Order Comment: Speci men Type: BLOOD SPECIMEN Ordering Facility: [facility] Address: [address] [place] [address] Performed By: #### 5 8410-2 #### [facility] CLIA [id number] [address] [place] [address] MCH (RBC) [Entitic mass] 28.1 pg Normal 26.0-34.0 [facility] Comment on above: Order Comment: Speci men Type: BLOOD SPECIMEN Ordering Facility: [facility] Address: [address] [place] [address] Performed By: #### 5 8410-2 #### [facility] CLIA [id number] [address] [place] [address] STATES [facility] MCHC (RBC) [Mass/Vol] 32.7 g/dL Normal 30.5-36.0 [facility] Comment on above: Order Comment: Speci men Type: BLOOD SPECIMEN Ordering Facility: [facility] Address: [address] [place] [address] Performed By: #### 5 8410-2 #### [facility] IA [id number] [address] [place] [address] [place] MCV (RBC) [Entitic vol] 86.0 fL Normal 80.0-100.0 [facility] Comment on above: Order Comment: Speci men Type: BLOOD SPECIMEN Ordering Facility: [facility] Address: [address] [place] [address] Performed By: #### 5 8410-2 #### [facility] CLIA [id number] [address] [place] [address] OF [place] Nucleated RBC (Bld) [#/Vol] 10*3/uL Normal <0.01 [facility] Comment on above: Order Comment: Speci men Type: BLOOD SPECIMEN Ordering Facility: [facility] Address: [address] [place], [place] [address] Performed By: #### 5 8410-2 #### [facility] CLIA [id number] [address] [place] [address] [place] Platelet mean volume (Bld) [Entitic vol] 9.3 fL Normal 9.0-12.7 [facility] Comment on above: Order Comment: Speci men Type: BLOOD SPECIMEN Ordering Facility: [facility] Address: [address] [place], [place] [address] Performed By: #### 5 8410-2 #### [facility] CLIA [id number] [address] [place] [address] [place] Platelets (Bld) [#/Vol] 283 10*3/uL Normal 150-400 [facility] Comment on above: Order Comment: Speci men Type: BLOOD SPECIMEN Ordering Facility: [facility] Address: [address] [place] [address] Performed By: #### 5 8410-2 #### [facility] IA [id number] [address] [place] [address] [place] RBC (Bld) [#/Vol] 5.73 10*6/uL Normal 4.20-6.00 [facility] Comment on above: Order Comment: Speci men Type: BLOOD SPECIMEN Ordering Facility: [facility] Address: [address] [place], [place] [address] Performed By: #### 5 8410-2 #### [facility] CLIA [id number] [address] [place], [place] [address] [place] WBC (Bld) [#/Vol] 6.69 10*3/uL Normal 3.70-11.00 [facility] Comment on above: Order Comment: Speci men Type: BLOOD SPECIMEN Ordering Facility: [facility] Address: [address] [place], [place] [address] Performed By: #### 5 8410-2 #### [facility] [id number] [address] [place] [id number] [facility] CNOVon 01-17-2022 CNOV Office Visit (KIDLU ) -- NADERJOSÉ MANUEL BOND ([id number]) 1960 M T Date Time Provider Department 01/17/22 3:00 PM BILLY MARTINEZ During your visit today, we recorded the following information about you: Pulse Blood pressure Weight Height 90/minute 165/85 115.7 kg 1.778 m Billy Cody MD 01/17/2022 3:36 PM Signed [facility] [place] NEPHROLOGY CONSULT NOTE Patient Name: José Manuel [...] get helped. He has a psychiatrist at [facility] [place]. PAST MEDICAL HISTORY: PAST MEDICAL HISTORY [...] quittin.8 Smokeless tobacco: Never Tobacco comments: Smokes [place] Vaping Use Vaping Use: Never used Substance Use Topics Alcohol use: Not Currently Drug use: Yes Types: Marijuana Comment: daily Single. No children. He lives with his brother and sister. (He moved back from [place]). 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 He [...] tablets before breakfast and before supper Insulin [place], Disposable, (COMFORT EZ P (more content not included)... Normal [facility] Comprehensive metabolic 2000 panelon 01-17-2022 Albumin [Mass/Vol] 4.0 g/dL Normal 3.9-4.9 [facility] Comment on above: Order Comment: Luz vaughan Type: BLOOD SPECIMEN Ordering Facility: [facility] Address: [address] [place] [address] Performed By: #### 5 8410-2 #### [facility] CLIA [id number] [address] [place] [address] [place] ALP [Catalytic activity/Vol] 127 U/L High 38-113 [facility] Comment on above: Order Comment: Speci men Type: BLOOD SPECIMEN Ordering Facility: [facility] Address: [address] [place] [address] Performed By: #### 5 8410-2 #### [facility] CLIA [id number] [address] [place] [address] [place] ALT [Catalytic activity/Vol] 15 U/L Normal 10-54 [facility] Comment on above: Order Comment: Speci men Type: BLOOD SPECIMEN Ordering Facility: [facility] Address: [address] [place], [place] [address] Performed By: #### 5 8410-2 #### [facility] CLIA [id number] [address] [place], [place] [address] [place] Anion gap [Moles/Vol] 12 mmol/L Normal 9-18 [facility] Comment on above: Order Comment: Speci men Type: BLOOD SPECIMEN Ordering Facility: [facility] Address: [address] [place] [address] Performed By: #### 5 8410-2 #### [facility] CLIA [id number] [address] [place] [address] [place] AST [Catalytic activity/Vol] 14 U/L Normal 14-40 [facility] Comment on above: Order Comment: Speci men Type: BLOOD SPECIMEN Ordering Facility: [facility] Address: [address] [place], [place] [address] Performed By: #### 5 8410-2 #### [facility] CLIA [id number] [facility] [place] [id number] [place] Bilirubin [Mass/Vol] 0.3 mg/dL Normal 0.2-1.3 [facility] Comment on above: Order Comment: Speci men Type: BLOOD SPECIMEN Ordering Facility: [facility] Address: [address] [place], [place] [address] Performed By: #### 5 8410-2 #### [facility] CLIA [id number] [facility] [place], [place] [address] [place] Calcium [Mass/Vol] 10.2 mg/dL Normal 8.5-10.2 [facility] Comment on above: Order Comment: Speci men Type: BLOOD SPECIMEN Ordering Facility: [facility] Address: [address] [place], [place] [address] Performed By: #### 5 8410-2 #### [facility] CLIA [id number] [address] [place], [place] [address] [place] Chloride [Moles/Vol] 98 mmol/L Normal 97-105 [facility] Comment on above: Order Comment: Speci men Type: BLOOD SPECIMEN Ordering Facility: [facility] Address: [address] [place] [address] Performed By: #### 5 8410-2 #### [facility] IA [id number] [address] [place], [place] [address] [place] CO2 [Moles/Vol] 27 mmol/L Normal 22-30 [facility] Comment on above: Order Comment: Speci men Type: BLOOD SPECIMEN Ordering Facility: [facility] Address: [address] [place] [address] Performed By: #### 5 8410-2 #### [facility] IA [id number] [address] [place], [place] [address] [place] Creatinine [Mass/Vol] 1.22 mg/dL Normal 0.73-1.22 [facility] Comment on above: Order Comment: Speci men Type: BLOOD SPECIMEN Ordering Facility: [facility] Address: [address] [place] [address] Performed By: #### 5 8410-2 #### [facility] IA [id number] [address] [place], [place] [address] [facility] ESTIMATED GLOMERULAR FILTRATION RATE 67 mL/min/1.73m??? Normal >=60 [facility] Comment on above: Order Comment: Speci men Type: BLOOD SPECIMEN Ordering Facility: [facility] Address: [address] [place] [address] Result Comment: Breanne mated Glomerular Filtration Rate [...] GFR. Performed By: #### 5 8410-2 #### [facility] [id number] [address] [place] [address] [place] Glucose [Mass/Vol] 312 mg/dL High 74-99 [facility] Comment on above: Order Comment: Luz vaughan Type: BLOOD SPECIMEN Ordering Facility: [facility] Address: [address] [place] [address] Result Comment: The [place] Diabetes Association (ADA) provides guidance for cutoff [...] Standards of Medical Care in Diabetes 2016, [place] [employer] Association. Diabetes Care. 2016.39(Suppl 1). Performed By: #### 5 8410-2 #### [facility] [id number] [address] [place], [place] [address] [place] Potassium [Moles/Vol] 4.3 mmol/L Normal 3.7-5.1 [facility] Comment on above: Order Comment: Luz vaughan Type: BLOOD SPECIMEN Ordering Facility: [facility] Address: [address] [place], [place] [address] Performed By: #### 5 8410-2 #### [facility] [id number] [address] [place], [place] [address] [place] Protein [Mass/Vol] 7.0 g/dL Normal 6.3-8.0 [facility] Comment on above: Order Comment: Luz vaughan Type: BLOOD SPECIMEN Ordering Facility: [facility] Address: [address] [place], [place] [address] Performed By: #### 5 8410-2 #### [facility] CLIA [id number] [facility] [address] Sodium [Moles/Vol] 137 mmol/L Normal 136-144 [facility] Comment on above: Order Comment: Speci men Type: BLOOD SPECIMEN Ordering Facility: [facility] Address: [address] [place] [address] Performed By: #### 5 8410-2 #### [facility] IA [id number] [facility] [address] STATES [facility] Urea nitrogen [Mass/Vol] 26 mg/dL High 9-24 [facility] Comment on above: Order Comment: Speci men Type: BLOOD SPECIMEN Ordering Facility: [facility] Address: [address] [place] [address] Performed By: #### 5 8410-2 #### [facility] IA [id number] [address] [place] [address] ECG COMPLETEon 01-17-2022 ECG COMPLETE Ventricular Rate : 8 9 BPM Atrial Rate : 90 BPM P-R Interval : 155 ms QRS Duration : 111 ms Q-T Interval : 385 ms QTC Calculation(Bazett) : 469 ms Calculated P [place] : 35 degrees Calculated R [place] : 53 degrees Calculated T [place] : 52 degrees Sinus rhythm Probable left atrial enlargement Low voltage, precordial leads Probable anteroseptal infarct, old Abnormal ECG NO CHANGE FROM 04/21/21. [place] 01/17 [place] ([id number]), sound editor MOHINDER LINDER ([id number]) on 01/18/2022 11:00:19 AM NAME : JOSÉ MANUEL ASHTON PID : [id number] : 1960 Gender : Male Race : ORD : [id number] Procedure Date : Jan 17 2022 20:58:11 Edit Date : Jan 18 2022 11:00:23 Diagnosis: Sinus rhythm Probable left atrial enlargement Low voltage, precordial leads Probable anteroseptal infarct, old Abnormal ECG NO CHANGE FROM 04/21/21. OLMAN 01/17 Confirmed by MD RASCON BRYAN ([id number]), sound editor MOHINDER LINDER ([id number]) on 01/18/2022 11:00:19 AM Test Reason : Arrhythmia Location : 502 : LUED 12 Overread By : MD RASCON BRYAN Edited By : MOHINDER LINDER Referred By : , Acquired by : [facility], [facility] ED NOTEon 01-17-2022 ED NOTE HNO ID: [id number] Author: Regi Tavarez, LEATHA Service: Nursing Author Type: Registered Nurse Type: ED Notes Filed: 01/17/2022 6:34 PM Note Text: Pt sent by Dr Kennedy for psychiatric eval from appointment today Pt states he is having hard time understanding his medical dx and keeping up with his T2DM. [facility] ED PROV NOTEon 01-17-2022 ED PROV NOTE HNO ID: [id number] Author: Pa Rascon MD Service: Emergency Medicine [...] emergency department at the direction of his marketing operations associate, Dr. Kennedy for psych eval who saw [...] quittin.8 Smokeless tobacco: Never Tobacco comments: Smokes [place] Vaping Use Vaping Use: Never used Substance [...] ill-appea (more content not included)... Normal [facility] Ethanol SerPl-ncon 022 Ethanol [Mass/Vol] 29 mg/dL High <11 [facility] Comment on above: Order Comment: Speci men Type: BLOOD SPECIMEN Ordering Facility: [facility] Address: [address] [place] [address] Performed By: #### 5 8410-2 #### [facility] IA [id number] [address] [place] [address] [place] [facility] KETONES/ACETONE/BHBon 2021 Beta hydroxybutyrate [Moles/Vol] 1.55 mmol/L High <0.28 [facility] Comment on above: Order Comment: Speci men Type: BLOOD SPECIMEN Ordering Facility: [facility] Address: [address] [place] [address] Performed By: #### 5 8410-2 #### [facility] CLIA [id number] [address] [place] [address] [place] TOX SCREEN ROUT URon 022 Amphetamines Confirm (U) [Mass/Vol] Negative Normal Negative [facility] Comment on above: Order Comment: Speci men Type: BLOOD SPECIMEN Ordering Facility: [facility] Address: [address] [place] [address] Result Comment: Cuto ff threshold at 1000 ng/mL. Performed By: #### 5 8410-2 #### [facility] CLIA [id number] [facility] [address] BARBITURATES, URINE Negative Normal Negative [facility] Comment on above: Order Comment: Speci men Type: BLOOD SPECIMEN Ordering Facility: [facility] Address: [address] [place] [address] Result Comment: Cuto ff threshold at 200 ng/mL. Performed By: #### 5 8410-2 #### [facility] CLIA [id number] [address] [place] [address] [place] BENZODIAZEPINES, UR Negative Normal Negative [facility] Comment on above: Order Comment: Speci men Type: BLOOD SPECIMEN Ordering Facility: [facility] Address: [address] [place] [address] Result Comment: Cuto ff threshold at 200 ng/mL. Performed By: #### 5 8410-2 #### [facility] CLIA [id number] [address] [place] [address] [place] CANNABINOIDS,URINE Positive Abnormal Negative [facility] Comment on above: Order Comment: Speci men Type: BLOOD SPECIMEN Ordering Facility: [facility] Address: [address] [place] [address] Result Comment: Cuto ff threshold at 50 ng/mL. Performed By: #### 5 8410-2 #### [facility] CLIA [id number] [address] [place], [place] [address] [facility] Cocaine Ql (U) Negative Normal Negative [facility] Comment on above: Order Comment: Speci men Type: BLOOD SPECIMEN Ordering Facility: [facility] Address: [address] [place] [address] Result Comment: Cuto ff threshold at 300 ng/mL. Performed By: #### 5 8410-2 #### [facility] CLIA [id number] [address] [place], [place] [address] [place] [facility] Ethanol (U) [Mass/Vol] <11 Normal <11 [facility] Comment on above: Order Comment: Speci men Type: BLOOD SPECIMEN Ordering Facility: [facility] Address: [address] [place] [address] Performed By: #### 5 8410-2 #### [facility] CLIA [id number] [address] [place], [place] [address] [facility] Opiates Screen Ql (U) Negative Normal Negative [facility] Comment on above: Order Comment: Speci men Type: BLOOD SPECIMEN Ordering Facility: [facility] Address: [address] [place] [address] Result Comment: Cuto ff threshold at 300 ng/mL. Performed By: #### 5 8410-2 #### [facility] CLIA [id number] [address] [place], [place] [address] [facility] oxyCODONE cutoff Screen (U) [Mass/Vol] Negative Normal Negative [facility] Comment on above: Order Comment: Speci men Type: BLOOD SPECIMEN Ordering Facility: [facility] Address: [address] [place] [address] Result Comment: Cuto ff threshold at 100 ng/mL. Performed By: #### 5 8410-2 #### [facility] CLIA [id number] [address] [place], [place] [address] [facility] Phencyclidine Ql (U) Negative Normal Negative [facility] Comment on above: Order Comment: Speci men Type: BLOOD SPECIMEN Ordering Facility: [facility] Address: [address] [place] [address] Result Comment: Cuto ff threshold at 25 ng/mL. Performed By: #### 5 8410-2 #### [facility] CLIA [id number] [address] [place] [address] TROPONIN Ton 01-17-2022 Troponin T.cardiac [Mass/Vol] 0.011 ug/L Normal 0.000-0.029 [facility] Comment on above: Order Comment: Speci men Type: BLOOD SPECIMEN Ordering Facility: [facility] Address: [address] [place] [address] Performed By: #### T NT #### [facility] CLIA [id number] [address] [place] [address] [place] TSH SerPl-aCncon 01-17-2022 TSH Qn 1.870 m[IU]/L Normal 0.270-4.200 [facility] Comment on above: Order Comment: Speci men Type: BLOOD SPECIMEN Ordering Facility: [facility] Address: [address] [place] [address] Performed By: #### 5 8410-2 #### [facility] CLIA [id number] [address] [place] [address] Urinalysis complete panel (U )on 01-17-2022 Bacteria LM.HPF (Urine sed) [#/Area] Few Abnormal None Seen [facility] Comment on above: Order Comment: Speci men Type: BLOOD SPECIMEN Ordering Facility: [facility] Address: [address] [place] [address] Performed By: #### 5 8410-2 #### [facility] CLIA [id number] [address] [place] [address] Bilirubin Ql (U) Negative Normal Negative [facility] Comment on above: Order Comment: Speci men Type: BLOOD SPECIMEN Ordering Facility: [facility] Address: [address] [place] [address] Performed By: #### 5 8410-2 #### [facility] CLIA [id number] [address] [place] [address] [place] Clarity (Unsp spec) Clear Normal Clear [facility] Comment on above: Order Comment: Speci men Type: BLOOD SPECIMEN Ordering Facility: [facility] Address: [address] [place] [address] Performed By: #### 5 8410-2 #### [facility] CLIA [id number] [address] [place] [address] Color (U) Yellow Normal Yellow [facility] Comment on above: Order Comment: Speci men Type: BLOOD SPECIMEN Ordering Facility: [facility] Address: [address] [place] [address] Performed By: #### 5 8410-2 #### [facility] CLIA [id number] [address] [place] Epithelial cells LM.HPF (Urine sed) [#/Area] Few Normal [facility] Comment on above: Order Comment: Speci men Type: BLOOD SPECIMEN Ordering Facility: [facility] Address: [address] [place] [address] Result Comment: Few Performed By: #### 5 8410-2 #### [facility] CLIA [id number] [address] [place] [address] [place] Glucose Test strip (U) [Mass/Vol] 3+ Abnormal Negative [facility] Comment on above: Order Comment: Speci men Type: BLOOD SPECIMEN Ordering Facility: [facility] Address: [address] [place] [address] Performed By: #### 5 8410-2 #### [facility] CLIA [id number] [address] [place], [place] [address] [place] Hemoglobin Ql (U) 2+ Abnormal Negative [facility] Comment on above: Order Comment: Speci men Type: BLOOD SPECIMEN Ordering Facility: [facility] Address: [address] [place] [address] Performed By: #### 5 8410-2 #### [facility] CLIA [id number] [address] Hyaline casts (Urine sed) [#/Area] 1-3 /LPF Abnormal 0 /LPF [facility] Comment on above: Order Comment: Speci men Type: BLOOD SPECIMEN Ordering Facility: [facility] Address: [address] [place] [address] Performed By: #### 5 8410-2 #### [facility] CLIA [id number] [address] [place] [address] Ketones Ql (U) 1+ Abnormal Negative [facility] Comment on above: Order Comment: Speci men Type: BLOOD SPECIMEN Ordering Facility: [facility] Address: [address] [place] [address] Performed By: #### 5 8410-2 #### [facility] CLIA [id number] [address] [place] [address] Leukocyte esterase Test strip Ql (U) Negative Normal Negative [facility] Comment on above: Order Comment: Speci men Type: BLOOD SPECIMEN Ordering Facility: [facility] Address: [address] [place] [address] Performed By: #### 5 8410-2 #### [facility] CLIA [id number] [address] [place] [address] Nitrite Ql (U) Negative Normal Negative [facility] Comment on above: Order Comment: Speci men Type: BLOOD SPECIMEN Ordering Facility: [facility] Address: [address] [place] [address] Performed By: #### 5 8410-2 #### [facility] CLIA [id number] [address] [place] [address] pH (U) 6.0 [pH] Normal 5.0-8.0 [facility] Comment on above: Order Comment: Speci men Type: BLOOD SPECIMEN Ordering Facility: [facility] Address: [address] [place] [address] Performed By: #### 5 8410-2 #### [facility] CLIA [id number] [address] [place], [place] [id number] [place] [facility] Protein (U) [Mass/Vol] Normal [facility] Comment on above: Order Comment: Speci men Type: BLOOD SPECIMEN Ordering Facility: [facility] Address: [address] [place] [address] Result Comment: Visi ble blood causes falsely elevated results for analyte Protein. Due to this limitation, Protein will not be reported for patients whose urine contains visible blood. Performed By: #### 5 8410-2 #### [facility] CLIA [id number] [address] [place] [address] [place] RBC LM.HPF (Urine sed) [#/Area] 3-5 /HPF Abnormal 0-3 /HPF [facility] Comment on above: Order Comment: Speci men Type: BLOOD SPECIMEN Ordering Facility: [facility] Address: [address] [place] [address] Performed By: #### 5 8410-2 #### [facility] IA [id number] [address] [place] [address] [place] Specific gravity (U) [Rel density] >=1.030 High 1.005-1.030 [facility] Comment on above: Order Comment: Speci men Type: BLOOD SPECIMEN Ordering Facility: [facility] Address: [address] [place] [address] Performed By: #### 5 8410-2 #### [facility] CLIA [id number] [address] [place], [place] [id number] [place] Urobilinogen Ql (U) 0.2 EU/dL Normal 0.2-1.0 EU/dL [facility] Comment on above: Order Comment: Speci men Type: BLOOD SPECIMEN Ordering Facility: [facility] Address: [address] [place] [address] Performed By: #### 5 8410-2 #### [facility] CLIA [id number] [address] [place] [id number] [place] WBC LM.HPF (Urine sed) [#/Area] 0-5 /HPF Normal 0-5 /HPF [facility] Comment on above: Order Comment: Speci men Type: BLOOD SPECIMEN Ordering Facility: [facility] Address: [address] [place] [address] Performed By: #### 5 8410-2 #### [facility] CLIA [id number] [address] [place] [id number] [place] XR CHEST 1V [...] exam with no evidence of acute disease. Filler Blender: PSCB Transcribe Date/Time: Jan 17 2022 8:15P Dictated by : LAZARO SENA MD This examination was interpreted and the report reviewed and electronically signed by: LAZARO SENA MD on Jan 17 2022 8:15PM EST [id number] Normal [facility] GLUCOSE, BLOOD (POC)on 01-03 Glucose [Mass/Vol] 290 mg/dL Abnormal 74 - 99 mg/dL [facility] HEMOGLOBIN A1C (POC)on 01-03 HbA1c (Bld) [Mass fraction] 13.4 % Abnormal 4.2 - 5.6 % [facility] GLUCOSE, BLOOD (POC)on 11-05 Glucose [Mass/Vol] 330 mg/dL Abnormal 74 - 99 mg/dL [facility] HEMOGLOBIN A1C (POC)on 11-05 HbA1c (Bld) [Mass fraction] 11.3 % Abnormal 4.2 - 5.6 % [facility] GLUCOSE, BLOOD (POC)on 10-05 Glucose [Mass/Vol] 184 mg/dL Abnormal 74 - 99 mg/dL [facility] HEMOGLOBIN A1C (POC)on 10-05 HbA1c (Bld) [Mass fraction] 11.5 % Abnormal 4.2 - 5.6 % [facility] GLUCOSE, BLOOD (POC)on 09-20 Glucose [Mass/Vol] 197 mg/dL Abnormal 74 - 99 mg/dL [facility] HEMOGLOBIN A1C (POC)on 09-20 HbA1c (Bld) [Mass fraction] 12.5 % Abnormal 4.2 - 5.6 % [facility] GLUCOSE, BLOOD (POC)on 08-11 Glucose [Mass/Vol] 434 mg/dL Abnormal 74 - 99 mg/dL [facility] HEMOGLOBIN A1C (POC)on 08-11 HbA1c (Bld) [Mass fraction] 12.7 % Abnormal 4.2 - 5.6 % [facility] MRI PELVIS WO/W IVCONon 09-[address] [facility] [address] ABD/PEL W IVCONon 021 CT ABD/PEL W IVCON Final Report DATE OF EXAM: Jun 26 2020 3:38PM [facility] 0530 - CT ABD/PEL W IVCON [...] L5-S1. Lower thorax: No significant additional findings. Grain Elevator Man (topogram) images: No significant additional findings. IMPRESSION: [...] be communicated with the ordering provider via [place] staff message or phone message by [employer] [facility] within 2 business days of report finalization. Algorithms for management of incidental imaging findings can be found on the [facility] Intranet Sharepoint site at: [email or web address] Filler Blender: ROBERTA Transcribe Date/Time: Jun 29 2020 1:50P Dictated by : LUIS BADILLO MD This examination was interpreted and the report reviewed and electronically signed by: LUIS BADILLO MD on Jun 29 2020 2:03PM EST ACTIONABLE Normal [facility] Otheron 05-14-2020 [facility] XR SHLDR >/=3V AP/KRISHNA AP/OTH R [...] IMPRESSION: Mild osteoarthritis of the acromioclavicular joint. Filler Blender: [facility] Transcribe Date/Time: May 14 2020 3:04P Dictated by : AJ SUN MD This examination was interpreted and the report reviewed and electronically signed by: AJ SUN MD on May 14 2020 3:05PM EST Normal [facility] Metabolic Panelon 04-27-2020 Glucose [Mass/Vol] 230 mg/dL Abnormal 65 - 100 mg/dL [facility] Otheron 04-27-2020 Quality Check Yes [facility] Otheron 02-17-2020 [facility] XR LUMBAR 3V AP/LAT/L5-S1on 02-17-2020 XR [...] osseous abnormalities. 2. Moderate multilevel degenerative changes. Filler Blender: ROBERTA Transcribe Date/Time: Feb 17 2020 2:33P Dictated by : AKIN DUDLEY MD This examination was interpreted and the report reviewed and electronically signed by: AKIN DUDLEY MD on Feb 17 2020 2:36PM EST Normal [facility] No Panel Information [facility] Vital Signs Date Time Vital Sign Value Performing Clinician Faci lity 11-29-2024 13:46-0400 Body temperature 97.81 [degF] Omid Adames MD Work Phone: [employer] 11-29-2024 13:46-0400 Diastolic blood pressure 83 mm[Hg] Omid Adames MD Work Phone: [employer] 11-29-2024 13:46-0400 Heart rate 85 /min Omid Adames MD Work Phone: [employer] 11-29-2024 13:46-0400 Respiratory rate 17 /min Omid Adames MD Work Phone: [employer] 11-29-2024 13:46-0400 Systolic blood pressure 153 mm[Hg] Omid Adames MD Work Phone: [employer] 11-29-2024 03:00-0400 Body mass index (BMI) [Ratio] 38.02 kg/m2 Omid Adames MD Work Phone: [employer] 11-29-2024 03:00-0400 Body weight 120.2 kg Omid Adames MD Work Phone: [employer] 11-28-2024 20:22-0400 SaO2% (BldA) [Mass fraction] 91 % Omid Adames MD Work Phone: [employer] 11-28-2024 13:58-0400 Body height 177.8 cm Omid Adames MD Work Phone: [employer] 07-10-2024 14:11-0400 Body height 172.7 cm Jose Dudley MD Work Phone: [facility] 07-10-2024 14:11-0400 Body mass index (BMI) [Ratio] 38.62 kg/m2 Jose Dudley MD Work Phone: [facility] 07-10-2024 14:11-0400 Body temperature 97.9 [degF] Jose Dudley MD Work Phone: [facility] 07-10-2024 14:11-0400 Body weight 115.21 kg Jose Dudley MD Work Phone: [facility] 07-10-2024 14:11-0400 Diastolic blood pressure 91 mm[Hg] Jose Dudley MD Work Phone: [facility] 07-10-2024 14:11-0400 Heart rate 84 /min Jose Dudley MD Work Phone: [facility] 07-10-2024 14:11-0400 SaO2% (BldA) [Mass fraction] 98 % Jose Dudley MD Work Phone: [facility] 07-10-2024 14:11-0400 Systolic blood pressure 168 mm[Hg] Jose Dudley MD Work Phone: [facility] 05-13-2024 12:02-0500 Diastolic blood pressure 91 mm[Hg] Artem Ahmadi MD Work Phone: [facility] 05-13-2024 12:02-0500 Heart rate 76 /min Artem Ahmadi MD Work Phone: [facility] 05-13-2024 12:02-0500 Respiratory rate 14 /min Artem Ahmadi MD Work Phone: [facility] 05-13-2024 12:02-0500 SaO2% (BldA) [Mass fraction] 97 % Artem Ahmadi MD Work Phone: [facility] 05-13-2024 12:02-0500 Systolic blood pressure 179 mm[Hg] Artem Ahmadi MD Work Phone: [facility] 05-13-2024 11:46-0500 Body temperature 97.39 [degF] Artem Ahmadi MD Work Phone: [facility] 01-24-2024 13:45-0400 Body height 172.7 cm Jose Dudley MD Work Phone: [facility] 01-24-2024 13:45-0400 Body mass index (BMI) [Ratio] 35.58 kg/m2 Jose Dudley MD Work Phone: [facility] 01-24-2024 13:45-0400 Body weight 106.14 kg Jose Dudley MD Work Phone: [facility] 01-24-2024 13:45-0400 Diastolic blood pressure 98 mm[Hg] Jose Dudley MD Work Phone: [facility] 01-24-2024 13:45-0400 Heart rate 75 /min Jose Dudley MD Work Phone: [facility] 01-24-2024 13:45-0400 Systolic blood pressure 192 mm[Hg] Jose Dudley MD Work Phone: [facility] 11-20-2023 10:53-0400 Diastolic blood pressure 74 mm[Hg] Noé Russfener PT Work Phone: [facility] 11-20-2023 10:53-0400 Heart rate 80 /min Noé Rufener PT Work Phone: [facility] 11-20-2023 10:53-0400 Respiratory rate 16 /min Noé Rufener PT Work Phone: [facility] 11-20-2023 10:53-0400 SaO2% (BldA) [Mass fraction] 98 % Noé Rufener PT Work Phone: [facility] 11-20-2023 10:53-0400 Systolic blood pressure 134 mm[Hg] Noé Rufener PT Work Phone: [facility] 11-20-2023 10:22-0400 Body temperature 98.4 [degF] Noé Namsoniya PT Work Phone: [facility] 11-16-2023 14:25-0400 Body temperature 98.2 [degF] Eda Bright RN Work Phone: [facility] 11-16-2023 14:25-0400 Diastolic blood pressure 80 mm[Hg] Eda Bright RN Work Phone: [facility] 11-16-2023 14:25-0400 Heart rate 80 /min Eda Bright RN Work Phone: [facility] 11-16-2023 14:25-0400 Respiratory rate 18 /min Eda Bright RN Work Phone: [facility] 11-16-2023 14:25-0400 SaO2% (BldA) [Mass fraction] 97 % Eda Bright RN Work Phone: [facility] 11-16-2023 14:25-0400 Systolic blood pressure 136 mm[Hg] Eda Bright RN Work Phone: [facility] 11-14-2023 10:30-0400 Diastolic blood pressure 74 mm[Hg] Prinston Hairston PENETRATION TESTER Work Phone: [facility] Comment on above: exertion 11-14-2023 10:30-0400 Heart rate 83 /min Prinston Hairston PENETRATION TESTER Work Phone: [facility] 11-14-2023 10:30-0400 Respiratory rate 19 /min Prinston Hairston PENETRATION TESTER Work Phone: [facility] 11-14-2023 10:30-0400 SaO2% (BldA) [Mass fraction] 97 % Prinston Hairston PENETRATION TESTER Work Phone: [facility] 11-14-2023 10:30-0400 Systolic blood pressure 140 mm[Hg] Prinston Hairston PENETRATION TESTER Work Phone: [facility] Comment on above: exertion 11-14-2023 09:57-0400 Body temperature 97.9 [degF] Prinston Hairston PENETRATION TESTER Work Phone: [facility] 11-13-2023 09:22-0400 Body temperature 97.9 [degF] Keyla Fernanda OT/L Work Phone: [facility] 11-13-2023 09:22-0400 Diastolic blood pressure 82 mm[Hg] Keyla Fernanda OT/L Work Phone: [facility] 11-13-2023 09:22-0400 Heart rate 79 /min Keyla Fernanda OT/L Work Phone: [facility] 11-13-2023 09:22-0400 Respiratory rate 18 /min Keyla Fernanda OT/L Work Phone: [facility] 11-13-2023 09:22-0400 SaO2% (BldA) [Mass fraction] 98 % Keyla Fernanda OT/L Work Phone: [facility] 11-13-2023 09:22-0400 Systolic blood pressure 140 mm[Hg] Keyla Fernanda OT/L Work Phone: [facility] 11-10-2023 15:55-0400 Body temperature 98.1 [degF] Eda Bright RN Work Phone: [facility] 11-10-2023 15:55-0400 Diastolic blood pressure 78 mm[Hg] Eda Bright RN Work Phone: [facility] 11-10-2023 15:55-0400 Heart rate 80 /min Eda Bright RN Work Phone: [facility] 11-10-2023 15:55-0400 Respiratory rate 20 /min Eda Bright RN Work Phone: [facility] 11-10-2023 15:55-0400 SaO2% (BldA) [Mass fraction] 98 % Eda Bright RN Work Phone: [facility] 11-10-2023 15:55-0400 Systolic blood pressure 136 mm[Hg] Eda Bright RN Work Phone: [facility] 11-09-2023 09:09-0400 Diastolic blood pressure 84 mm[Hg] Prinston Hairston PENETRATION TESTER Work Phone: [facility] Comment on above: exertion 11-09-2023 09:09-0400 Heart rate 83 /min Prinston Hairston PENETRATION TESTER Work Phone: [facility] 11-09-2023 09:09-0400 Respiratory rate 16 /min Prinston Hairston PENETRATION TESTER Work Phone: [facility] 11-09-2023 09:09-0400 SaO2% (BldA) [Mass fraction] 98 % Prinston Hairston PENETRATION TESTER Work Phone: [facility] 11-09-2023 09:09-0400 Systolic blood pressure 132 mm[Hg] Prinston Hairston PENETRATION TESTER Work Phone: [facility] Comment on above: exertion 11-09-2023 08:46-0400 Body temperature 98.01 [degF] Prinston Hairston PENETRATION TESTER Work Phone: [facility] 11-07-2023 14:46-0400 Diastolic blood pressure 76 mm[Hg] Prinston Hairston PENETRATION TESTER Work Phone: [facility] Comment on above: exertion 11-07-2023 14:46-0400 Heart rate 84 /min Prinston Hairston PENETRATION TESTER Work Phone: [facility] 11-07-2023 14:46-0400 Respiratory rate 18 /min Prinston Hairston PENETRATION TESTER Work Phone: [facility] 11-07-2023 14:46-0400 SaO2% (BldA) [Mass fraction] 98 % Prinston Hairston PENETRATION TESTER Work Phone: [facility] 11-07-2023 14:46-0400 Systolic blood pressure 140 mm[Hg] Prinston Hairston PENETRATION TESTER Work Phone: [facility] Comment on above: exertion 11-07-2023 14:15-0400 Body temperature 98.49 [degF] Prinston Hairston PENETRATION TESTER Work Phone: [facility] 11-06-2023 09:10-0400 Body temperature 98.2 [degF] Keyla Fernanda OT/L Work Phone: [facility] 11-06-2023 09:10-0400 Diastolic blood pressure 70 mm[Hg] Keyla Fernanda OT/L Work Phone: [facility] 11-06-2023 09:10-0400 Heart rate 77 /min Keyla Fernanda OT/L Work Phone: [facility] 11-06-2023 09:10-0400 Respiratory rate 18 /min Keyla Fernanda OT/L Work Phone: [facility] 11-06-2023 09:10-0400 SaO2% (BldA) [Mass fraction] 97 % Keyla Fernanda OT/L Work Phone: [facility] 11-06-2023 09:10-0400 Systolic blood pressure 128 mm[Hg] Keyla Fernanda OT/L Work Phone: [facility] 11-03-2023 15:53-0400 Body temperature 97.39 [degF] Eda Bright RN Work Phone: [facility] 11-03-2023 15:53-0400 Diastolic blood pressure 78 mm[Hg] Eda Bright RN Work Phone: [facility] 11-03-2023 15:53-0400 Heart rate 68 /min Eda Bright RN Work Phone: [facility] 11-03-2023 15:53-0400 Respiratory rate 20 /min Eda Bright RN Work Phone: [facility] 11-03-2023 15:53-0400 SaO2% (BldA) [Mass fraction] 98 % Eda Bright RN Work Phone: [facility] 11-03-2023 15:53-0400 Systolic blood pressure 138 mm[Hg] Eda Bright RN Work Phone: [facility] 11-02-2023 15:42-0400 Diastolic blood pressure 76 mm[Hg] Renea Puentesaver PENETRATION TESTER Work Phone: [facility] 11-02-2023 15:42-0400 Heart rate 70 /min Renea Puentesaver PENETRATION TESTER Work Phone: [facility] 11-02-2023 15:42-0400 Respiratory rate 16 /min Renea Hairston PENETRATION TESTER Work Phone: [facility] 11-02-2023 15:42-0400 SaO2% (BldA) [Mass fraction] 98 % Renea Hairston PENETRATION TESTER Work Phone: [facility] 11-02-2023 15:42-0400 Systolic blood pressure 136 mm[Hg] Renea Hairston PENETRATION TESTER Work Phone: [facility] 11-02-2023 15:15-0400 Body temperature 97.7 [degF] Renea Hairston PENETRATION TESTER Work Phone: [facility] 10-31-2023 15:25-0400 Body temperature 97.39 [degF] Eda Bright RN Work Phone: [facility] 10-31-2023 15:25-0400 Diastolic blood pressure 78 mm[Hg] Eda Bright RN Work Phone: [facility] 10-31-2023 15:25-0400 Heart rate 76 /min Eda Bright RN Work Phone: [facility] 10-31-2023 15:25-0400 Respiratory rate 18 /min Eda Bright RN Work Phone: [facility] 10-31-2023 15:25-0400 SaO2% (BldA) [Mass fraction] 98 % Eda Bright RN Work Phone: [facility] 10-31-2023 15:25-0400 Systolic blood pressure 144 mm[Hg] Eda Bright RN Work Phone: [facility] 10-30-2023 09:20-0400 Body temperature 98.4 [degF] Keyla Fernanda OT/L Work Phone: [facility] 10-30-2023 09:20-0400 Diastolic blood pressure 78 mm[Hg] Keyla Fernanda OT/L Work Phone: [facility] 10-30-2023 09:20-0400 Heart rate 76 /min Keyla Fernanda OT/L Work Phone: [facility] 10-30-2023 09:20-0400 Respiratory rate 18 /min Keyla Fernanda OT/L Work Phone: [facility] 10-30-2023 09:20-0400 SaO2% (BldA) [Mass fraction] 97 % Keyla Fernanda OT/L Work Phone: [facility] 10-30-2023 09:20-0400 Systolic blood pressure 132 mm[Hg] Keyla Fernanda OT/L Work Phone: [facility] 10-28-2023 12:58-0400 Diastolic blood pressure 79 mm[Hg] Zohaib Giffels PT Work Phone: [facility] 10-28-2023 12:58-0400 Heart rate 80 /min Zohaib Giffels PT Work Phone: [facility] 10-28-2023 12:58-0400 Respiratory rate 18 /min Zohaib Giffels PT Work Phone: [facility] 10-28-2023 12:58-0400 SaO2% (BldA) [Mass fraction] 98 % Zohaib Giffels PT Work Phone: [facility] 10-28-2023 12:58-0400 Systolic blood pressure 141 mm[Hg] Zohaib Giffels PT Work Phone: [facility] 10-28-2023 12:33-0400 Body temperature 98.29 [degF] Zohaib Giffels PT Work Phone: [facility] 10-27-2023 10:17-0400 Body temperature 98.4 [degF] Keyla Fernanda OT/L Work Phone: [facility] 10-27-2023 10:17-0400 Diastolic blood pressure 64 mm[Hg] Keyla Fernanda OT/L Work Phone: [facility] 10-27-2023 10:17-0400 Heart rate 83 /min Keyla Fernanda OT/L Work Phone: [facility] 10-27-2023 10:17-0400 Respiratory rate 18 /min Keyla Fernanda OT/L Work Phone: [facility] 10-27-2023 10:17-0400 SaO2% (BldA) [Mass fraction] 99 % Keyla Fernanda OT/L Work Phone: [facility] 10-27-2023 10:17-0400 Systolic blood pressure 148 mm[Hg] Keyla Fernanda OT/L Work Phone: [facility] 10-26-2023 09:59-0400 Body temperature 98.01 [degF] Eda Bright RN Work Phone: [facility] 10-26-2023 09:59-0400 Diastolic blood pressure 74 mm[Hg] Eda Bright RN Work Phone: [facility] 10-26-2023 09:59-0400 Heart rate 76 /min Eda Bright RN Work Phone: [facility] 10-26-2023 09:59-0400 Respiratory rate 18 /min Eda Bright RN Work Phone: [facility] 10-26-2023 09:59-0400 SaO2% (BldA) [Mass fraction] 98 % Eda Bright RN Work Phone: [facility] 10-26-2023 09:59-0400 Systolic blood pressure 136 mm[Hg] Eda Bright RN Work Phone: [facility] 10-22-2023 11:58-0400 Body height 172.7 cm Nguyen Whitaker RN Work Phone: [facility] 10-22-2023 11:58-0400 Body mass index (BMI) [Ratio] 37.89 kg/m2 Nguyenleon Whitaker RN Work Phone: [facility] 10-22-2023 11:58-0400 Body temperature 97.2 [degF] Nguyenleon Whitaker RN Work Phone: [facility] 10-22-2023 11:58-0400 Body weight 113.04 kg Nguyenleon Whitaker RN Work Phone: [facility] 10-22-2023 11:58-0400 Diastolic blood pressure 86 mm[Hg] Nguyenleon Whitaker RN Work Phone: [facility] 10-22-2023 11:58-0400 Heart rate 84 /min Nguyenleon Whitaker RN Work Phone: [facility] 10-22-2023 11:58-0400 Respiratory rate 16 /min Nguyenleon Whitaker RN Work Phone: [facility] 10-22-2023 11:58-0400 SaO2% (BldA) [Mass fraction] 98 % Nguyenleon Whitaker RN Work Phone: [facility] 10-22-2023 11:58-0400 Systolic blood pressure 144 mm[Hg] Nguyenleon Whitaker RN Work Phone: [facility] 07-12-2023 14:16-0400 Body height 177.8 cm Noé Kennedy MD Work Phone: [facility] 07-12-2023 14:16-0400 Body weight 108.86 kg Noé Kennedy MD Work Phone: [facility] 05-23-2023 11:08-0500 Body height 177.8 cm Mónica Peterson MD Work Phone: [facility] 05-23-2023 11:08-0500 Body weight 109.2 kg Mónica Peterson MD Work Phone: [facility] 05-23-2023 11:08-0500 Diastolic blood pressure 109 mm[Hg] Mónica Peterson MD Work Phone: [facility] 05-23-2023 11:08-0500 Heart rate 97 /min Mónica Peterson MD Work Phone: [facility] 05-23-2023 11:08-0500 Respiratory rate 16 /min Mónica Peterson MD Work Phone: [facility] 05-23-2023 11:08-0500 SaO2% (BldA) [Mass fraction] 99 % Mónica Peterson MD Work Phone: [facility] 05-23-2023 11:08-0500 Systolic blood pressure 195 mm[Hg] Mónica Peterson MD Work Phone: [facility] 01-23-2023 14:18-0400 Body height 177.8 cm Mark Godinez MD Work Phone: [facility] 01-23-2023 14:18-0400 Body weight 113.85 kg Mark Godinez MD Work Phone: [facility] 01-23-2023 14:18-0400 Respiratory rate 18 /min Mark Godinez MD Work Phone: [facility] 12-23-2022 15:46-0400 Body height 177.8 cm Belgica Vega DO Work Phone: [facility] 12-23-2022 15:46-0400 Body weight 114.76 kg Belgica Vega DO Work Phone: [facility] 12-23-2022 15:46-0400 Diastolic blood pressure 91 mm[Hg] Belgica Vega DO Work Phone: [facility] 12-23-2022 15:46-0400 Heart rate 91 /min Belgica Vega DO Work Phone: [facility] 12-23-2022 15:46-0400 Systolic blood pressure 153 mm[Hg] Belgica Vega DO Work Phone: [facility] 11-04-2022 15:04-0400 Body height 177.8 cm Belgica Vega DO Work Phone: [facility] 11-04-2022 15:04-0400 Body weight 117.48 kg Belgica Vega DO Work Phone: [facility] 11-04-2022 15:04-0400 Diastolic blood pressure 82 mm[Hg] Belgica Vega DO Work Phone: [facility] 11-04-2022 15:04-0400 Heart rate 99 /min Belgica Vega DO Work Phone: [facility] 11-04-2022 15:04-0400 Systolic blood pressure 142 mm[Hg] Belgica Vega DO Work Phone: [facility] 11-02-2022 14:18-0400 Body height 177.8 cm Noé Kennedy MD Work Phone: [facility] 11-02-2022 14:18-0400 Body weight 115.67 kg Noé Kennedy MD Work Phone: [facility] 11-02-2022 14:18-0400 Heart rate 90 /min Noé Kennedy MD Work Phone: [facility] 11-02-2022 14:18-0400 SaO2% (BldA) [Mass fraction] 96 % Noé Kennedy MD Work Phone: [facility] 10-13-2022 09:290400 Body height 177.8 cm Sukumar Toney MD Work Phone: [facility] 10-13-2022 09:29-0400 Body weight 115.67 kg Sukumar Toney MD Work Phone: [facility] 10-13-2022 09:29-0400 Diastolic blood pressure 93 mm[Hg] Sukumar Toney MD Work Phone: [facility] 10-13-2022 09:29-0400 Heart rate 90 /min Sukumar Toney MD Work Phone: [facility] 10-13-2022 09:29-0400 SaO2% (BldA) [Mass fraction] 96 % Sukumar Toney MD Work Phone: [facility] 10-13-2022 09:29-0400 Systolic blood pressure 165 mm[Hg] Sukumar Toney MD Work Phone: [facility] 10-10-2022 13:32-0400 Body height 177.8 cm Mark Godinez MD Work Phone: [facility] 10-10-2022 13:32-0400 Body weight 115.21 kg Mark Godinez MD Work Phone: [facility] 10-10-2022 13:32-0400 Respiratory rate 16 /min Mark Godinez MD Work Phone: [facility] 09-28-2022 11:05-0400 Body height 177.8 cm Belgica Vega DO Work Phone: [facility] 09-28-2022 11:05-0400 Body weight 115.21 kg Belgica Vega DO Work Phone: [facility] 09-28-2022 11:05-0400 Diastolic blood pressure 81 mm[Hg] Belgica Vega DO Work Phone: [facility] 09-28-2022 11:05-0400 Heart rate 101 /min Belgica Vega DO Work Phone: [facility] 09-28-2022 11:05-0400 Systolic blood pressure 135 mm[Hg] Belgica Vega DO Work Phone: [facility] 09-23-2022 15:27-0400 Body height 177.8 cm Binh Peiffer DO Work Phone: [facility] 09-23-2022 15:27-0400 Body weight 115.21 kg Binh Peiffer DO Work Phone: [facility] 09-23-2022 15:27-0400 Respiratory rate 16 /min Binh Peiffer DO Work Phone: [facility] 09-02-2022 13:34-0400 Body height 177.8 cm Binh Peiffer DO Work Phone: [facility] 09-02-2022 13:34-0400 Body weight 115.21 kg Binh Peiffer DO Work Phone: [facility] 09-02-2022 13:34-0400 Respiratory rate 20 /min Binh Peiffer DO Work Phone: [facility] 08-12-2022 15:35-0400 Body height 177.8 cm Belgica Vega DO Work Phone: [facility] 08-12-2022 15:35-0400 Body weight 115.21 kg Belgica Vega DO Work Phone: [facility] 08-12-2022 15:35-0400 Diastolic blood pressure 92 mm[Hg] Beligca Vega DO Work Phone: [facility] 08-12-2022 15:35-0400 Heart rate 98 /min Belgica Vega DO Work Phone: [facility] 08-12-2022 15:35-0400 Systolic blood pressure 156 mm[Hg] Belgica Vega DO Work Phone: [facility] 07-01-2022 12:59-0400 Body height 177.8 cm Binh Peiffer DO Work Phone: [facility] 07-01-2022 12:59-0400 Body weight 117.94 kg Binh Peiffer DO Work Phone: [facility] 07-01-2022 12:59-0400 Respiratory rate 18 /min Binh Peiffer DO Work Phone: [facility] 06-29-2022 16:59-0400 Diastolic blood pressure 84 mm[Hg] Belgica Vega DO Work Phone: [facility] 06-29-2022 16:59-0400 Systolic blood pressure 144 mm[Hg] Belgica Vega DO Work Phone: [facility] 06-29-2022 15:58-0400 Body height 177.8 cm Belgica Vega DO Work Phone: [facility] 06-29-2022 15:58-0400 Body weight 117.48 kg Belgica Vega DO Work Phone: [facility] 06-29-2022 15:58-0400 Heart rate 92 /min Belgica Vega DO Work Phone: [facility] 06-01-2022 10:44-0500 Body height 177.8 cm Rory Mendoza MD Work Phone: [facility] 06-01-2022 10:44-0500 Body temperature 97 [degF] Rory Mendoza MD Work Phone: [facility] 06-01-2022 10:44-0500 Body weight 116.12 kg Rory Mendoza MD Work Phone: [facility] 06-01-2022 10:44-0500 Diastolic blood pressure 74 mm[Hg] Rory Mendoza MD Work Phone: [facility] 06-01-2022 10:44-0500 Heart rate 91 /min Rory Mendoza MD Work Phone: [facility] 06-01-2022 10:44-0500 SaO2% (BldA) [Mass fraction] 96 % Rory Mendoza MD Work Phone: [facility] 06-01-2022 10:44-0500 Systolic blood pressure 153 mm[Hg] Rory Mendoza MD Work Phone: [facility] 05-18-2022 15:02-0500 Body height 177.8 cm Belgica Vega DO Work Phone: [facility] 05-18-2022 15:02-0500 Body weight 116.12 kg Belgica Vega DO Work Phone: [facility] 05-18-2022 15:02-0500 Diastolic blood pressure 85 mm[Hg] Belgica Vega DO Work Phone: [facility] 05-18-2022 15:02-0500 Heart rate 101 /min Belgica Vega DO Work Phone: [facility] 05-18-2022 15:02-0500 Systolic blood pressure 134 mm[Hg] Belgica Vega DO Work Phone: [facility] 05-04-2022 13:59-0500 Body height 177.8 cm Noé Kennedy MD Work Phone: [facility] 05-04-2022 13:59-0500 Body weight 116.12 kg Noé Kennedy MD Work Phone: [facility] 04-13-2022 16:46-0500 Diastolic blood pressure 90 mm[Hg] Belgica Vega DO Work Phone: [facility] 04-13-2022 16:46-0500 Heart rate 97 /min Belgica Vega DO Work Phone: [facility] 04-13-2022 16:46-0500 Systolic blood pressure 155 mm[Hg] Belgica Vega DO Work Phone: [facility] 04-13-2022 15:49-0500 Body height 177.8 cm Belgica Vega DO Work Phone: [facility] 04-13-2022 15:49-0500 Body weight 116.12 kg Belgica Vega DO Work Phone: [facility] 03-01-2022 15:39-0500 Diastolic blood pressure 86 mm[Hg] Belgica Vega DO Work Phone: [facility] 03-01-2022 15:39-0500 Systolic blood pressure 146 mm[Hg] Belgica Vega DO Work Phone: [facility] 03-01-2022 14:51-0500 Body height 177.8 cm Belgica Vega DO Work Phone: [facility] 03-01-2022 14:51-0500 Body weight 115.67 kg Belgica Vega DO Work Phone: [facility] 03-01-2022 14:51-0500 Heart rate 96 /min Belgica Vega DO Work Phone: [facility] 01-17-2022 14:18-0400 Body height 177.8 cm Billy Cody MD Work Phone: [facility] 01-17-2022 14:18-0400 Body weight 115.67 kg Billy Cody MD Work Phone: [facility] 01-17-2022 14:18-0400 Diastolic blood pressure 85 mm[Hg] Billy Cody MD Work Phone: [facility] 01-17-2022 14:18-0400 Heart rate 90 /min Billy Cody MD Work Phone: [facility] 01-17-2022 14:18-0400 SaO2% (BldA) [Mass fraction] 95 % Billy Cody MD Work Phone: [facility] 01-17-2022 14:18-0400 Systolic blood pressure 165 mm[Hg] Billy Cody MD Work Phone: [facility] 01-03-2022 15:20-0400 Body height 177.8 cm Belgica Vega DO Work Phone: [facility] 01-03-2022 15:20-0400 Body weight 115.67 kg Belgica Vega DO Work Phone: [facility] 01-03-2022 15:20-0400 Diastolic blood pressure 85 mm[Hg] Belgica Vega DO Work Phone: [facility] 01-03-2022 15:20-0400 Heart rate 94 /min Belgica Vega DO Work Phone: [facility] 01-03-2022 15:20-0400 Systolic blood pressure 141 mm[Hg] Belgica Vega DO Work Phone: [facility] 11-05-2021 17:01-0400 Diastolic blood pressure 94 mm[Hg] Belgica Vega DO Work Phone: [facility] 11-05-2021 17:01-0400 Heart rate 85 /min Belgica Vega DO Work Phone: [facility] 11-05-2021 17:01-0400 Systolic blood pressure 160 mm[Hg] Belgica Vega DO Work Phone: [facility] 11-05-2021 16:12-0400 Body height 177.8 cm Belgica Vega DO Work Phone: [facility] 11-05-2021 16:12-0400 Body weight 122.02 kg Belgica Vega DO Work Phone: [facility] 10-27-2021 13:41-0400 Body height 177.8 cm Noé Kennedy MD Work Phone: [facility] 10-27-2021 13:41-0400 Body weight 122.02 kg Noé Kennedy MD Work Phone: [facility] 10-05-2021 15:06-0400 Body height 177.8 cm Belgica Vega DO Work Phone: [facility] 10-05-2021 15:06-0400 Body temperature 98.2 [degF] Belgica Vega DO Work Phone: [facility] 10-05-2021 15:06-0400 Body weight 117.94 kg Belgica Vega DO Work Phone: [facility] 10-05-2021 15:06-0400 Diastolic blood pressure 80 mm[Hg] Belgica Vega DO Work Phone: [facility] 10-05-2021 15:06-0400 Heart rate 78 /min Belgica Vega DO Work Phone: [facility] 10-05-2021 15:06-0400 SaO2% (BldA) [Mass fraction] 99 % Belgica Vega DO Work Phone: [facility] 10-05-2021 15:06-0400 Systolic blood pressure 130 mm[Hg] Belgica Vega DO Work Phone: [facility] 09-20-2021 13:20-0400 Body height 177.8 cm Belgica Vega DO Work Phone: [facility] 09-20-2021 13:20-0400 Body temperature 98.29 [degF] Belgica Vega DO Work Phone: [facility] 09-20-2021 13:20-0400 Body weight 117.94 kg Belgica Vega DO Work Phone: [facility] 09-20-2021 13:20-0400 Diastolic blood pressure 84 mm[Hg] Belgica Vega DO Work Phone: [facility] 09-20-2021 13:20-0400 Heart rate 99 /min Belgica Vega DO Work Phone: [facility] 09-20-2021 13:20-0400 Systolic blood pressure 143 mm[Hg] Belgica Vega DO Work Phone: [facility] 08-11-2021 15:56-0400 Body height 177.8 cm Belgica Vega DO Work Phone: [facility] 08-11-2021 15:56-0400 Body temperature 98.29 [degF] Belgica Vega DO Work Phone: [facility] 08-11-2021 15:56-0400 Body weight 122.47 kg Belgica Vega DO Work Phone: [facility] 08-11-2021 15:56-0400 Diastolic blood pressure 79 mm[Hg] Belgica Vega DO Work Phone: [facility] 08-11-2021 15:56-0400 Heart rate 94 /min Belgica Vega DO Work Phone: [facility] 08-11-2021 15:56-0400 Systolic blood pressure 127 mm[Hg] Belgica Vega DO Work Phone: [facility] 05-28-2020 16:04-0500 Body Temperature 97.59 [degF] Belgica Herrera [facility] 05-28-2020 16:04-0500 Body weight 122.33 kg Belgica Herrera [facility] 05-28-2020 16:04-0500 Height 177.8 cm Belgica Herrera [facility] 05-28-2020 16:04-0500 Pulse Oximetry 98 % Belgica Herrera [facility] 05-28-2020 16:04-0500 Respiratory Rate 16 /min Belgica Herrera [facility] 04-27-2020 16:37-0500 BP Diastolic 90 mm[Hg] Belgica Herrera [facility] 04-27-2020 16:37-0500 BP Systolic 155 mm[Hg] Belgica [facility] 04-27-2020 16:37-0500 Pulse (Heart Rate) 86 /min Belgica [facility] 04-27-2020 15:54-0500 Body Temperature 98.6 [degF] Belgica [facility] 04-27-2020 15:54-0500 Body weight 123.11 kg Belgica [facility] 04-27-2020 15:54-0500 Height 178.5 cm Belgica [facility] 04-27-2020 15:54-0500 Pulse Oximetry 98 % Belgica [facility] 04-27-2020 15:54-0500 Respiratory Rate 18 /min Belgica [facility] 03-23-2020 15:44-0500 Body Temperature 98.01 [degF] Belgica [facility] 03-23-2020 15:44-0500 Body weight 123.29 kg [facility] 03-23-2020 15:44-0500 BP Diastolic 89 mm[Hg] [facility] 03-23-2020 15:44-0500 BP Systolic 147 mm[Hg] [facility] 03-23-2020 15:44-0500 Height 178.5 cm [facility] 03-23-2020 15:44-0500 Pulse (Heart Rate) 85 /min Belgica [facility] 03-23-2020 15:44-0500 Pulse Oximetry 97 % Belgica [facility] 03-23-2020 15:44-0500 Respiratory Rate 18 /min Belgica [facility] 02-20-2020 15:01-0500 Body Temperature 98.2 [degF] [facility] 02-20-2020 15:01-0500 Body weight 120.02 kg [facility] 02-20-2020 15:01-0500 BP Diastolic 82 mm[Hg] [facility] 02-20-2020 15:01-0500 BP Systolic 144 mm[Hg] [facility] 02-20-2020 15:01-0500 Height 178.5 cm [facility] 02-20-2020 15:01-0500 Pulse (Heart Rate) 94 /min Belgica [facility] 02-20-2020 15:01-0500 Pulse Oximetry 97 % Belgica [facility] 02-20-2020 15:01-0500 Respiratory Rate 18 /min Belgicaluca [facility] 02-14-2020 16:24-0500 Body Temperature 98.1 [degF] [facility]gicaluca [facility] 02-14-2020 16:24-0500 Body weight 121.02 kg [facility] 02-14-2020 16:24-0500 BP Diastolic 93 mm[Hg] [facility] 02-14-2020 16:24-0500 BP Systolic 161 mm[Hg] [facility] 02-14-2020 16:24-0500 Height 176.5 cm [facility] 02-14-2020 16:24-0500 Pulse (Heart Rate) 93 /min Belgica [facility] 02-14-2020 16:24-0500 Pulse Oximetry 97 % [facility] 02-14-2020 16:24-0500 Respiratory Rate 18 /[facility] Encounter Date Encounter Type Care Provider Facility Start: 02-10-2025 End: 02-10-2025 ambulatory BUNNY M ESTERLE Facility:[facility] Start: 02-10-2025 End: 02-10-2025 ambulatory BUNNY M ESTERLE Facility:[facility] Start: 02-04-[facility] Start: 01-15-[facility] Start: 11-25-2024 End: 11-29-2024 Evaluation and management of inpatient Omid Adames MD Work Phone: [facility] Comment on above: Chills (Primary Dx); Shakes; History of chronic renal failure; Elevated lactic acid level; Chronic pain syndrome Start: 10-14-2024 ambulatory Mahderecker Samlla OLS Facility:[facility] Start: 10-07-2024 End: 10-07-2024 ambulatory Brittaney LORENZO Facility:[facility] Start: 08-28-2024 End: 08-28-2024 ambulatory Brittaney Garcia MD [facility] Work Phone: Start: 08-28-2024 End: 08-28-2024 [facility] Start: 08-28-2024 End: 08-28-2024 ambulatory Brittaney LORENZO Facility:[facility] Start: 07-24-2024 End: 07-24-2024 Telephone encounter Claudia Chow LPN Work Phone: [facility] Comment on above: Home Care (Referral discarded ) Start: 07-16-2024 End: 07-16-2024 Telephone encounter Claudia Chow LPN Work Phone: [facility] Comment on above: Home Care (Confirmation Call ) Start: 07-12-2024 End: 07-12-2024 Telephone encounter Judith Cat LPN Work Phone: [facility] Comment on above: Home Care (MD to Follow) Start: 07-10-2024 End: 07-24-2024 Evaluation and management of inpatient JOSE DUDLEY Facility:[facility] Start: 07-10-2024 End: 07-10-2024 Office outpatient visit 40 minutes Jose Dudley MD Work Phone: [facility] Comment on above: CKD stage G5/A3, GFR [...] Orders Only Jose Dudley MD Work Phone: [facility] Comment on above: [...] Follow-up encounter Artem Ahmadi MD Work Phone: [facility] Start: 05-14-2024 End: 05-14-2024 Follow-up encounter Artem Ahmadi MD Work Phone: [facility] Start: 05-13-2024 Encounter for other preprocedural examination ARTEM AHMADI [facility] Start: 05-13-2024 ambulatory ARTEM AHMADI Facility:[facility] Start: 05-13-2024 End: 05-13-2024 Preprocedural examination done Artem Ahmadi MD Work Phone: [facility] Start: 05-13-2024 End: 05-13-2024 Subsequent hospital visit by physician Artem Ahmadi MD Work Phone: [facility] Comment on above: History of rectal cancer [Z85.048] Start: 04-27-2024 End: 08-20-2024 ambulatory Randi Eason RN [facility] Start: 04-27-2024 End: 08-20-2024 Patient encounter procedure Randi Eason RN [facility] Start: 04-26-2024 End: 04-26-2024 Telephone encounter Jose Dudley MD Work Phone: [facility] Comment on above: Results Start: 04-26-2024 End: 04-26-2024 ambulatory BUNNYAntonette SCOTT Facility:[facility] Start: 02-20-2024 End: 02-20-2024 Orders Only Artem Ahmadi MD Work Phone: [facility] Comment on above: History of rectal cancer (Primary Dx) Procedure (COLONOSCO PY) Start: 01-24-2024 End: 01-24-2024 ambulatory [facility] Facility:[facility] Start: 01-24-2024 End: 01-24-2024 Office outpatient visit 25 minutes Jose Dudley MD Work Phone: [facility] [place] Comment on above: Anemia of renal disease (Primary Dx); Stage 3b chronic kidney disease (HCC); Vitamin D deficiency; Other proteinuria; Chronic kidney disease-mineral and bone disorder; Diabetes mellitus with nephropathy (HCC); Dietary counseling and surveillance; Hyperkalemia; Hypertension, essential; Hyperuricemia; Secondary renal hyperparathyroidism (HCC) Start: 12-22-2023 End: 12-22-2023 Telephone encounter Noé Kennedy MD Work Phone: [facility] Start: 12-18-2023 End: 12-18-2023 Telephone encounter Artem Ahmadi MD Work Phone: [facility] Comment on above: Schedule Colonoscopy Start: 12-08-2023 End: 03-08-2024 Transcribe Orders Florentin Gutierrez MD Work Phone: [facility] Comment on above: Other specified postprocedural states (P rimary Dx); Spinal stenosis, lumbar region with neurogenic claudication Start: 11-20-2023 End: 11-20-2023 Home visit Noé Maldonado PT Work Phone: [facility] Comment on above: PT AGENCY DC W VISIT Start: 11-17-2023 Telephone encounter Noé Maldonado PT Work Phone: [facility] Comment on above: Home Care (Unmade P.T. visit) Start: 11-17-2023 End: 11-17-2023 Home visit Simeon Hinds RN Work Phone: [facility] Comment on above: CARE COORDINATION PT UNMADE VISIT Start: 11-16-2023 End: 11-16-2023 Home visit Eda Bright RN Work Phone: [facility] Comment on above: SN DISC DC W VISIT Start: 11-15-2023 End: 11-15-2023 Home visit Nan Carrion COAL MINE INSPECTOR Work Phone: [facility] Comment on above: COORDINATOR SKILL TRAINING PROGRAM CARE COORDINATION CARE COORDINATION Start: 11-14-2023 End: 11-14-2023 Home visit Renea Hairston PENETRATION TESTER Work Phone: [facility] Comment on above: PENETRATION TESTER ROUTINE COORDINATOR SKILL TRAINING PROGRAM CARE COORDINATIO N Start: 11-13-2023 End: 11-13-2023 Home visit Keyla Fernanda OT/L Work Phone: [facility] Comment on above: OT DISC DC W VISIT Start: 11-10-2023 End: 11-10-2023 Home visit Eda Bright RN Work Phone: [facility] Comment on above: SN ROUTINE Start: 11-10-2023 End: 11-10-2023 ambulatory [facility] Start: 11-10-2023 End: 11-10-2023 Patient encounter procedure Bunny Oshea Clinical Communication Start: 11-09-2023 End: 11-09-2023 Home visit Renea Hairston PENETRATION TESTER Work Phone: [facility] Comment on above: PENETRATION TESTER ROUTINE Start: 11-07-2023 End: 11-07-2023 Home visit Eda Bright RN Work Phone: [facility] Comment on above: SN UNMADE VISIT PENETRATION TESTER ROUTINE Start: 11-06-2023 End: 11-06-2023 Home visit Keyla Fernanda OT/L Work Phone: [facility] Comment on above: OT ROUTINE WITH BATH Start: 11-03-2023 End: 11-03-2023 Home visit Simeon Hinds RN Work Phone: [facility] Comment on above: CARE COORDINATION TELEPHONE CONTACT SN ROUTINE Start: 11-02-2023 End: 11-02-2023 Home visit Renea Hairston PENETRATION TESTER Work Phone: [facility] Comment on above: PENETRATION TESTER ROUTINE Start: 11-01-2023 End: 11-01-2023 Home visit Noé Namsoniya PT Work Phone: [facility] Comment on above: PT UNMADE VISIT Start: 10-31-2023 End: 10-31-2023 Home visit Eda Bright RN Work Phone: [facility] Comment on above: SN ROUTINE Start: 10-30-2023 End: 10-30-2023 Home visit Keyla Fernanda OT/L Work Phone: [facility] Comment on above: OT ROUTINE Start: 10-28-2023 Telephone encounter Zohaib Abel PT Work Phone: [facility] Comment on above: Erroneous encounter-disregard Start: 10-28-2023 End: 10-28-2023 Home visit Zohaib Abel PT Work Phone: [facility] Comment on above: PT EVAL Start: 10-27-2023 Telephone encounter Bunny Scott MD Work Phone: [facility] Comment on above: Home Care (Scheduling Confirmation (Eval uation visit)) Home Care (DELAY IN SERVICE) Start: 10-27-2023 End: 10-27-2023 Home visit Keyla Fernanda OT/L Work Phone: [facility] Comment on above: OT EVAL Start: 10-26-2023 End: 10-26-2023 Home visit Nan Burnelisabeth COAL MINE INSPECTOR Work Phone: [facility] Comment on above: COORDINATOR SKILL TRAINING PROGRAM CARE COORDINATION COORDINATOR SKILL TRAINING PROGRAM EVAL SN ROUTINE Start: 10-24-2023 End: 10-24-2023 Home visit Nan Burnelisabeth COAL MINE INSPECTOR Work Phone: [facility] Comment on above: COORDINATOR SKILL TRAINING PROGRAM CARE COORDINATION Start: 10-23-2023 End: 10-23-2023 Home visit Nan Sheyla COAL MINE INSPECTOR Work Phone: [facility] Comment on above: COORDINATOR SKILL TRAINING PROGRAM CARE COORDINATION Start: 10-22-2023 End: 10-22-2023 Home visit Nguyen Whitaker RN Work Phone: [facility] Comment on above: SN SOC Start: 10-21-2023 Telephone encounter Nguyen Whitaker RN Work Phone: [facility] Start: 10-20-2023 Telephone encounter Bunny Scott MD Work Phone: [facility] Comment on above: Home Care Start: 10-12-2023 Telephone encounter Savannaaliya Learyosmany GARZA Work Phone: [facility] Comment on above: Home Care (MD to follow ) Home Care (Confirmat ion Call ) Start: 10-04-2023 End: 10-20-2023 Evaluation and management of inpatient BUNNY SCOTT Facility:[facility] Start: 08-01-2023 Telephone encounter Noé Kennedy MD Work Phone: Urology Start: 07-28-2023 Telephone encounter Mónica Peterson MD Work Phone: Endocrinology Comment on above: Patient Update Start: 07-12-2023 End: 07-12-2023 Patient encounter procedure Noé Kennedy MD Work Phone: Urology Comment on above: Nocturia (Primary Dx); Benign prostatic hyperplasia with nocturia; Screening PSA (prostate specific antigen) Start: 07-12-2023 End: 07-12-2023 ambulatory BUNNY SCOTT Facility:[facility] Start: 06-22-2023 End: 06-22-2023 Office outpatient visit 25 minutes Jose Dudley MD Work Phone: [facility] Comment on above: Anemia of renal disease (Primary Dx); Stage 3b chronic kidney disease (HCC); Vitamin D deficiency; Other proteinuria Start: 06-20-2023 Orders Only Jose Dudley MD Work Phone: [facility] Comment on above: Stage 3a chronic kidney disease (HCC) (P rimary Dx); Hypertension, essential; Vitamin D deficiency; Other proteinuria; Secondary hyperparathyroidism (HCC) Start: 06-12-2023 End: 06-13-2023 ambulatory BUNNY SCOTT Facility:[facility] Start: 05-23-2023 ambulatory Jen Bergman RN VNS Start: 05-23-2023 Coordination of care plan Jen Bergman RN [employer] Comment on above: Air Hose Coupler Chronic Care (D /C Care Coordination - Non-CC PCP) Start: 05-23-2023 End: 05-23-2023 Patient encounter procedure Mónica Peterson MD Work Phone: Endocrinology Comment on above: Poorly controlled type 2 diabetes [facility] Start: 05-19-2023 ambulatory Jne Bergman RN [employer] Comment on above: Air Hose Coupler Chronic Care (P CC f/u) Start: 05-12-2023 Telephone encounter Catracho Davis DO Work Phone: [facility] Comment on above: Appointment Start: 03-07-2023 Telephone encounter Mark Godinez MD Work Phone: [facility] Comment on above: Appointment Start: 01-27-2023 ambulatory Jen Bergman RN [employer] Comment on above: Air Hose Coupler Chronic Care (P CC f/u) Start: 01-23-2023 End: 01-23-2023 Patient encounter procedure Mark Godinez MD Work Phone: [facility] Comment on above: Primary osteoarthritis of left hip (Prim karin Dx) Start: 01-06-2023 Telephone encounter Mark Godinez MD Work Phone: [facility] Start: 12-23-2022 End: 12-23-2022 Patient encounter procedure Belgica Vega DO Work Phone: [facility] Comment on above: Hypertension, essential [...] Telephone encounter Belgica Vega DO Work Phone: [facility] Comment on above: Consult (Pain Management) Start: 12-01-2022 End: 12-01-2022 [facility] Comment on above: OTT (dyspnea on exertion) [R06.09] Precordial pain [R07 .2] Start: 11-24-2022 ambulatory Jen Bergman RN [employer] Comment on above: Air Hose Coupler Chronic Care (P CC f/u) Start: 11-14-2022 Telephone encounter Belgica Vega DO Work Phone: [facility] Comment on above: Medication Problem Start: 11-09-2022 Telephone encounter Candice Braun MD Work Phone: [facility] General Endocrinology, Diabetes, and Metabolism Comment on above: Appointment (New patient Referral) Start: 11-07-2022 Telephone encounter Belgica Vega DO Work Phone: [facility] Comment on above: Internal Referrals/resources (Neurology) Start: 11-04-2022 End: 11-04-2022 Patient encounter procedure Belgica Vega DO Work Phone: [facility] Comment on above: Cutaneous abscess of abdominal [...] Telephone encounter Belgica Vega DO Work Phone: [facility] Comment on above: Consult (Endocrinology) Consult (Dermatology ) Appointment Start: 11-02-2022 End: 11-02-2022 Patient encounter procedure Noé Kennedy MD Work Phone: Urology Comment on above: Nocturia (Primary Dx); Benign prostatic hyperplasia with nocturia Start: 11-02-2022 Telephone encounter Belgica Brandon Je DO Work Phone: [facility] Comment on above: Results Start: 11-01-2022 Patient Outreach Jen Bergman RN E M Assembler Comment on above: Air Hose Coupler Chronic Care (P CC f/u); Transition Of Care (TCM f/u) Primary Care Coordin ator Chronic Care (Pt feels sick) Start: 10-28-2022 Telephone encounter Artem Ahmadi MD Work Phone: [facility] Comment on above: Results (Surgical pathology) Start: 10-14-2022 Telephone encounter Belgica Brandon Je DO Work Phone: [facility] Comment on above: Patient Question Start: 10-13-2022 End: 10-13-2022 Patient encounter procedure Sukumar Toney MD Work Phone: [facility] [place] Comment on above: Precordial pain (Primary Dx); OTT (dyspnea on exertion); Primary hypertension; Dyslipidemia; Demand ischemia (HCC) Start: 10-12-2022 Patient Outreach Jen Bergman RN E M Assembler Comment on above: Air Hose Coupler Chronic Care (P CC f/u); Transition Of Care (TCM f/u) Start: 10-10-2022 End: 10-10-2022 Patient encounter procedure Mark Godinez MD Work Phone: [facility] Comment on above: Pain in left hip (Primary Dx) Start: 10-03-2022 Patient Outreach Jen Bergman RN E M Assembler Comment on above: Transition Of Care (TCM f/u); Primary Ca re Coordinator Chronic Care (PCC f/u) Start: 09-29-2022 Patient Outreach Jen Bergman RN E M Assembler Comment on above: Air Hose Coupler Chronic Care (P CC f/u); Transition Of Care (TCM f/u) Start: 09-28-2022 Telephone encounter Belgica Vega DO Work Phone: [facility] Comment on above: Consult (Cardio / [place] / Nephro) Start: 09-28-2022 End: 09-28-2022 Patient encounter procedure Belgica Vega DO Work Phone: [facility] Comment on above: Hospital discharge follow-up [...] encounter procedure Binh Lake DO Work Phone: [facility] Comment on above: Lumbar back pain with radiculopathy affe cting lower extremity (Primary Dx); Chronic bilateral low back pain with left-sided sciatica Start: 09-16-2022 End: 09-16-2022 Patient encounter procedure Meera Contreras OD Work Phone: [facility] Comment on above: Pseudophakia of both eyes (Primary Dx) Start: 09-05-2022 Telephone encounter Renetta Meza MD Work Phone: [facility] Comment on above: Appointment Start: 09-02-2022 End: 09-02-2022 Orders Only Artem Ahmadi MD Work Phone: [facility] Comment on above: History of rectal cancer (Primary Dx) Lumbar back pain wit h radiculopathy affecting lower extremity (Primary Dx); Chronic left hip pain; Spinal stenosis of lumbar region with neurogenic claudication; Lumbar radiculopathy; Chronic bilateral low back pain with left-sided sciatica; Spinal stenosis of lumbar region, unspecified whether neurogenic claudication present Start: 08-30-2022 ambulatory Belgica Vega DO Work Phone: [facility] [employer] Start: 08-30-2022 End: 08-30-2022 Subsequent hospital visit by physician Mri [address] [facility] (I-Stat/Lg Bore/1.5t) [facility] Comment on above: Pain in hip [M25.559] Start: 08-30-2022 End: 08-30-2022 Subsequent hospital visit by physician Lamonte Curtis MD Work Phone: [facility] Comment on above: Pain of left hip [M25.552] Pain in hip [M25.559 ] Start: 08-15-2022 Telephone encounter Renetta Meza MD Work Phone: [facility] Comment on above: Appointment (sx) Start: 08-12-2022 End: 08-12-2022 Patient encounter procedure Belgica Vega DO Work Phone: [facility] Comment on above: Encounter for annual [...] Telephone encounter Renetta Meza MD Work Phone: [facility] Comment on above: Appointment (A-scan reminder) Start: 07-28-2022 Telephone encounter Renetta Meza MD Work Phone: [facility] Comment on above: Returning Patient's Call (r/s ascan) Start: 07-27-2022 Telephone encounter Renetta Meza MD Work Phone: [facility] Comment on above: Appointment (ascan) Start: 07-14-2022 End: 07-14-2022 Patient encounter procedure Renetta Meza MD Work Phone: [facility] Comment on above: Nuclear senile cataract of both eyes (Pr imary Dx) Start: 07-01-2022 End: 07-01-2022 Patient encounter procedure Binh Lake DO Work Phone: [facility] Comment on above: Pain in hip (Primary Dx); Lumbar back pain with radiculopathy affecting lower extremity; Chronic left hip pain Start: 06-29-2022 End: 06-29-2022 Patient encounter procedure Belgica Vega DO Work Phone: [facility] [employer] [facility] Comment on above: Hypertension, essential (Primary [...] service Belgica Vega DO Work Phone: [facility] Comment on above: Opened In Error Start: 06-22-2022 Chart abstracting [facility] Main Work Phone: [facility] Comment on above: Psg Check In (Adult) Start: 06-01-2022 End: 06-01-2022 ambulatory Rory Mendoza MD Work Phone: [facility] Hematology [facility] On[facility] Comment on above: History of rectal cancer (Primary Dx); Pulmonary nodules; Hip pain; Spinal stenosis of lumbar region with neurogenic claudication Start: 06-01-2022 End: 06-01-2022 Patient encounter procedure Rory Mendoza MD Work Phone: [facility] Start: 05-19-2022 Telephone encounter Belgica Vega DO Work Phone: [facility] Comment on above: Consult Start: 05-18-2022 End: 05-18-2022 Patient encounter procedure Belgica Vega DO Work Phone: [facility] Comment on above: Hypertension, [...] type Start: 05-11-2022 ambulatory Jen Bergman RN E M Assembler Comment on above: Air Hose Coupler Chronic Care (P CC f/u) Start: 05-05-2022 Telephone encounter Renetta Meza MD Work Phone: [facility] Comment on above: eyeglass perscription Start: 05-04-2022 End: 05-04-2022 Patient encounter procedure Noé Kennedy MD Work Phone: Urology Comment on above: Nocturia; Screening PSA (prostate specific antigen); Hematuria, microscopic; Benign prostatic hyperplasia with nocturia Start: 04-26-2022 Patient Outreach Jen Bergman RN E M Assembler Comment on above: Air Hose Coupler Chronic Care (P CC f/u); Transition Of Care (TCM f/u) Start: 04-21-2022 Patient Outreach Jen Bergman RN E M Assembler Comment on above: Air Hose Coupler Chronic Care (P CC f/u); Transition Of Care (TCM f/u) Start: 04-13-2022 End: 04-13-2022 Patient encounter procedure Belgica Vega DO Work Phone: [facility] Comment on above: Hospital discharge follow-up [...] Start: 04-05-2022 Patient Outreach Jen Bergman RN E M Assembler Comment on above: Transition Of Care (AG D/C 04/01/22) Start: 03-30-2022 Telephone encounter Belgica Vega DO Work Phone: [facility] Comment on above: Consult Start: 03-23-2022 Telephone encounter Belgica Vega DO Work Phone: [facility] Comment on above: Results Start: 03-17-2022 Patient Outreach Jen Bergman RN E M Assembler Comment on above: Transition Of Care (TCM f/u); Primary Ca re Coordinator Chronic Care (PCC f/u) Start: 03-11-2022 Patient Outreach Jen Bergman RN E M Assembler Comment on above: Air Hose Coupler Chronic Care (P CC f/u); Transition Of Care (TCM f/u) Start: 03-10-2022 Telephone encounter Belgica Roma Vega DO Work Phone: [facility] Comment on above: Patient Update Start: 03-01-2022 End: 03-01-2022 Patient encounter procedure Belgica Brandon Je DO Work Phone: [facility] Comment on above: Hypertension, [...] Telephone encounter Belgica Vega DO Work Phone: [facility] Comment on above: Consult Start: 02-23-2022 Telephone encounter Artem Ahmadi MD Work Phone: [facility] Comment on above: Appointment Start: 02-21-2022 ambulatory Jen Bergman RN VNS Start: 02-21-2022 Chart abstracting Janie Pickett APRN.PARTS REPRESENTATIVE Work Phone: [facility] General Endocrinology Comment on above: Transition Of Care (SNF status - SNF D/C 02/15/22); Air Hose Coupler Chronic Care (PCC f/u) Start: 02-21-2022 Telephone encounter Janie Pickett APRN.PARTS REPRESENTATIVE Work Phone: [facility] General Endocrinology Comment on above: No Show Start: 01-28-2022 Patient Outreach Jen Bergman RN E M Assembler Comment on above: Transition Of Care (CC Yarsani D/C to S NF 01/27/22) Start: 01-20-2022 End: 01-27-2022 Evaluation and management of inpatient ANTOINE OLIVAS Facility:[facility] Start: 01-19-2022 Admission to [facility] Keyla Page [facility] Start: 01-19-2022 [facility] Comment on above: Behavioral Problem Start: 01-18-2022 ambulatory Jen Bergman RN AG VNS Start: 01-18-2022 Follow-up encounter Jen Bergman RN AG E M Assembler Comment on above: Air Hose Coupler Hospital Follow Up (Hospital admit - SBAR) Start: 01-17-2022 End: 01-20-2022 Evaluation and management of inpatient BELGICA Roma VEGA Facility:[facility] Start: 01-17-2022 End: 01-17-2022 Patient encounter [...] Start: 01-17-2022 Admission to establishment Lyndsay Pee [facility] Start: 01-17-2022 End: 01-17-2022 ambulatory Lyndsay [facility] Behavioral Health Intake Comment on above: Psychiatric Problem Start: 01-14-2022 Telephone encounter Renetta Meza MD Work Phone: [facility] Comment on above: Appointment Appointment (A-scan reminder); Surgery Cancelled (Per Patient) Start: 01-07-2022 ambulatory Jen Bergman RN AG E M Assembler Comment on above: Air Hose Coupler Chronic Care (P CC f/u) Start: 01-03-2022 End: 01-03-2022 Patient encounter procedure Belgica Vega DO Work Phone: [facility] Comment on above: Hypertension, essential [...] anger Start: 12-28-2021 ambulatory Jen Bergman RN E M Assembler Comment on above: Air Hose Coupler Chronic Care (P CC f/u) Start: 12-20-2021 Chart abstracting Billy Cody MD Work Phone: [facility] Start: 12-03-2021 ambulatory Jen Bergman RN E M Assembler Comment on above: Air Hose Coupler Chronic Care (P CC f/u) Start: 11-30-2021 Telephone encounter Renetta Meza MD Work Phone: [facility] Comment on above: Schedule Surgery (Ph[place] Right Eye) Start: 11-22-2021 Telephone encounter Renetta Meza MD Work Phone: [facility] Comment on above: Letter Start: 11-09-2021 Telephone encounter Renetta Meza MD Work Phone: [facility] Comment on above: Schedule Surgery ([facility] Right Eye) Start: 11-05-2021 End: 11-05-2021 Patient encounter procedure Belgica Vega DO Work Phone: [facility] Comment on above: Hypertension, essential [...] eyes Start: 11-01-2021 ambulatory Jen Bergman RN E M Assembler Comment on above: Air Hose Coupler Chronic Care (P CC f/u) Start: 10-27-2021 End: 10-27-2021 Patient encounter procedure Noé Kennedy MD Work Phone: Urology Comment on above: Benign prostatic hyperplasia with noctur ia (Primary Dx); Hematuria, microscopic; Screening PSA (prostate specific antigen); Nocturia Start: 10-26-2021 Telephone encounter Belgica Vega DO Work Phone: [facility] Comment on above: Follow Up Phone Call (called pt mailbox full mailed letter) Start: 10-14-2021 Telephone encounter Artem Ahmadi MD Work Phone: [facility] Comment on above: Schedule Surgery Start: 10-05-2021 End: 10-05-2021 Patient encounter procedure Belgica Vega DO Work Phone: [facility] Comment on above: Abscess of neck [...] encounter Belgica Vega DO Work Phone: [facility] Comment on above: Internal Referrals/resources (Nephrology ) Start: 09-20-2021 Telephone encounter Belgica Vega DO Work Phone: [facility] Comment on above: Internal Referrals/resources [...] retinopathy Start: 09-17-2021 ambulatory Jen Bergman RN E M Assembler Comment on above: Air Hose Coupler Chronic Care (P CC f/u) Start: 09-08-2021 Patient Outreach Jen Bergman RN E M Assembler Comment on above: Transition Of Care (ED D/C 09/07/21); Prim karin Surgical Services Director - Patient Initiated (Received call from pt) Start: 09-06-2021 ambulatory Jen Bergman RN E M Assembler Comment on above: Air Hose Coupler Chronic Care (P CC f/u) Start: 08-27-2021 Chart abstracting Janie Pickett APRN.CNP [facility] Start: 08-13-2021 Telephone encounter Artem Ahmadi MD Work Phone: [facility] Comment on above: [...] Subsequent hospital visit by physician Mri [address] [facility] (I-Stat/1.5t) [facility] Comment on above: Neoplasm: colorectal, rx monitor or foll ow up Start: 08-05-2021 ambulatory Jen Bergman RN E M Assembler Comment on above: Air Hose Coupler Chronic Care (P CC f/u) Start: 07-23-2021 Refill Belgica Vega DO Work Phone: [facility] Comment on above: Air Hose Coupler Chronic Care (R efill) Start: 07-22-2021 ambulatory Jen Bergman RN E M Assembler Comment on above: Air Hose Coupler Chronic Care (P CC f/u) Start: 07-06-2021 Telephone encounter Belgica Vega DO Work Phone: [facility] Comment on above: Results; Appointment; Patient Update Start: 07-01-2021 Chart abstracting Janie Pickett APRN.CNP Work Phone: [facility] General Endocrinology Start: 09-10-2020 End: 09-10-2020 Subsequent hospital visit by physician Mri [facility](I-Stat/Lg Bore/1.5t) Work Phone: Radiology Comment on above: Malignant neoplasm of rectum (HCC) [C20] Start: 05-30-2020 End: 05-30-2020 Patient encounter procedure Aron Reynolds Work Phone: [facility] Start: 05-30-2020 Results Only Aron Reynolds Work Phone: [facility] [place] Start: 05-29-2020 End: 05-29-2020 Patient encounter procedure [facility] Provider [facility] Start: 05-29-2020 Results Only [facility] Provider [facility] Department Start: 05-29-2020 End: 05-29-2020 Telephone encounter Belgica Herrera Work Phone: [facility] Comment on above: Patient Update (Neurology referral, no n umber on file for the patient) Start: 05-28-2020 End: 05-28-2020 Patient encounter procedure Belgica Herrera [facility] Comment on above: Hypertension, essential (Primary Dx); Chronic nausea; Myalgia; Marijuana use; Drooling; Chronic vertigo; Screening for diabetic retinopathy; Glucosuria; Uncontrolled type 2 diabetes mellitus with hyperglycemia (HCC); Primary osteoarthritis of left shoulder; Mixed hyperlipidemia Start: 05-28-2020 End: 05-28-2020 Patient encounter procedure Juancho Smithw-S) Marichuy Work Phone: [facility] General Behavioral Medicine (Julio César) Comment on above: Severe episode of recurrent major depres sive disorder, without psychotic features (HCC) (Primary Dx); Anxiety disorder, unspecified type Start: 05-14-2020 End: 05-14-2020 Telephone encounter Belgica Herrera [facility] Comment on above: Results Start: 05-14-2020 End: 05-14-2020 Subsequent hospital visit by physician Xr [place] [facility] Comment on above: Left shoulder pain, unspecified chronici ty [M25.512] Start: 05-06-2020 End: 05-06-2020 Telephone encounter Belgica Herrera Work Phone: [facility] Comment on above: Patient Update Start: 05-05-2020 End: 05-05-2020 Patient encounter procedure Carla Tripathi Work Phone: [facility] Comment on above: Chronic bilateral low back pain, unspeci fied whether sciatica present (Primary Dx); Weakness; Decreased mobility and endurance Start: 04-27-2020 End: 04-27-2020 Patient encounter procedure Belgica Herrera Work Phone: [facility] Comment on above: Uncontrolled hypertension (Primary Dx); Diabetes mellitus due to underlying condition, uncontrolled, with hyperglycemia (HCC); Mixed hyperlipidemia; Marijuana use; Chronic bilateral low back pain with sciatica, sciatica laterality unspecified; Lumbar radiculopathy; Dysuria; Fall (on) (from) other stairs and steps, initial encounter; Left shoulder pain, unspecified chronicity Start: 03-23-2020 End: 03-23-2020 Patient encounter procedure Belgica Herrera Work Phone: [facility] Comment on above: Uncontrolled hypertension (Primary Dx); Diabetes mellitus due to underlying condition, uncontrolled, with hyperglycemia (HCC); Vitamin D deficiency; Obesity, Class II, BMI 35-39.9; Mixed hyperlipidemia; Encounter for immunization; Diabetic peripheral neuropathy associated with type 2 diabetes mellitus (HCC) Start: 03-03-2020 End: 03-03-2020 Telephone encounter Belgica Herrera Work Phone: [facility] Comment on above: Medication Problem Start: 02-28-2020 End: 02-28-2020 Telephone encounter Belgica Herrera Work Phone: [facility] Comment on above: Consult Start: 02-21-2020 End: 02-21-2020 Patient encounter procedure [facility] Provider [facility] Start: 02-21-2020 Results Only [facility] Provider [facility] Department Start: 02-21-2020 End: 02-21-2020 Telephone encounter Bunny Giraldo [facility] Comment on above: Consult (CONSULTS TO ENT AND OPTHALMOLOG Y) Start: 02-20-2020 End: 02-20-2020 Patient encounter procedure Belgica Herrera Work Phone: [facility] Comment on above: Uncontrolled hypertension (Primary Dx); Diabetes mellitus due to underlying condition, uncontrolled, with hyperglycemia (HCC); Obesity, Class II, BMI 35-39.9; Chronic bilateral low back pain with sciatica, sciatica laterality unspecified; Marijuana use; Microalbuminuria; Vitamin D deficiency; Mixed hyperlipidemia; Elevated alkaline phosphatase level; Tinnitus aurium, bilateral; Dizziness; Dizziness and giddiness Start: 02-18-2020 End: 02-18-2020 Telephone encounter Belgica Brandon Javier Work Phone: [facility] Comment on above: Results Start: 02-17-2020 End: 02-17-2020 Telephone encounter Bunny Josseline Kristal [facility] Comment on above: Appointment (CONSULT TO ORTHO PLACED) Results Appointment (CONSULT TO PHYSICAL THERAPY PLACED) Start: 02-17-2020 End: 02-17-2020 Subsequent hospital visit by physician [place] [facility] Comment on above: Chronic bilateral low back pain with sci atica, sciatica laterality unspecified [M54.40, G89.29] Start: 02-14-2020 End: 02-14-2020 Patient encounter procedure Belgica Brandon Javier Work Phone: [facility] Comment on above: Routine physical examination [...] ia hepatitis b surface antigen Ailyn Christy [employer] - PARTS REPRESENTATIVE Work Phone: Start: 11-27-2024 End: 11-27-2024 Drug [...] ia hepatitis b surface antigen Ailyn Christy [employer] - PARTS REPRESENTATIVE Work Phone: Start: 11-26-2024 Glucose quantitative blood xcpt reagent strip Flori Hills MD Work Phone: Start: 11-26-2024 Respiratory pathogens DNA and RNA panel - Nasopharynx by BETO with non-probe detection Flori Hills MD Work Phone: Start: 11-26-2024 Glucose quantitative blood xcpt reagent strip Flori Hills MD Work Phone: Start: 11-26-2024 End: 11-26-2024 Comprehensive metabolic panel Flori Hlils MD Work Phone: Start: 11-26-2024 Drug screen [...] MD Work Phone: Start: 12-29-2023 End: 12-29-2023 [facility] medical xm&eval comprhnsv estab pt 1/> [...] Phone: Start: 06-29-2022 Hemoglobin A1c/Hemoglobin.total in Blood Belgcia Vega DO Work Phone: Start: 05-18-2022 Hemoglobin [...] Work Phone: Start: 07-24-2020 Colonoscopy Janie Pickett APRN.PARTS REPRESENTATIVE Work Phone: Start: 05-30-2020 PT ED PATIENT [...] DTaP/Tdap/Td Vaccines (2 - Td or Tdap) [facility] Start: 10-19-2030 Urine microalbumin profile [facility] Start: 11-02-2027 PROSTATE CANCER SCREENING DISCUSSION PROSTATE CANCER SCREENING DISCUSSION [facility] Start: 11-02-2027 Prostate specific antigen measurement Prostate Cancer Screening Discussion [facility] Start: 05-13-2027 Screening for malignant neoplasm of colon [facility] Start: 01-19-2027 PROSTATE CANCER SCREENING DISCUSSION PROSTATE CANCER SCREENING DISCUSSION [facility] Start: 07-05-2026 PROSTATE CANCER SCREENING DISCUSSION PROSTATE CANCER SCREENING DISCUSSION [facility] Start: 04-09-2026 PROSTATE CANCER SCREENING DISCUSSION PROSTATE CANCER SCREENING DISCUSSION [facility] Start: 11-29-2025 Diabetes: Estimated Glomerular Filtration Rate for [facility] Diabetes: Estimated Glomerular Filtration Rate for [facility] Start: 11-26-2025 Hemoglobin A1c measurement Diabetes: Hemoglobin A1C [facility] Start: 07-24-2025 Complete blood count Hemoglobin/Hematocrit [facility] Start: 07-24-2025 Creatinine measurement Serum Creatinine [facility] Start: 07-16-2025 Complete blood count Hemoglobin/Hematocrit [facility] Start: 07-16-2025 Creatinine measurement Serum Creatinine [facility] Start: 07-12-2025 Complete blood count Hemoglobin/Hematocrit [facility] Start: 07-12-2025 Creatinine measurement Serum Creatinine [facility] Start: 07-11-2025 Diabetes: Urine Albumin-Creatinine Ratio for Kidney [facility] Diabetes: Urine Albumin-Creatinine Ratio for Kidney Health [facility] Start: 07-10-2025 Complete blood count Hemoglobin/Hematocrit [facility] Start: 07-10-2025 Creatinine measurement Serum Creatinine [facility] Start: 05-13-2025 Complete blood count Hemoglobin/Hematocrit [facility] Start: 05-13-2025 Screening for malignant neoplasm of colon [facility] Start: 04-26-2025 Complete blood count Hemoglobin/Hematocrit [facility] Start: 04-26-2025 Creatinine measurement Serum Creatinine [facility] Start: 04-26-2025 Diabetes: Estimated Glomerular Filtration Rate for [facility] Diabetes: Estimated Glomerular Filtration Rate for Kidney Health [facility] Start: 02-16-2025 LIPID SCREEN LIPID SCREEN [facility] Start: 02-16-2025 PROSTATE CANCER SCREENING DISCUSSION PROSTATE CANCER SCREENING DISCUSSION [facility] Start: 01-23-2025 Complete blood count Hemoglobin/Hematocrit [facility] Start: 01-23-2025 Creatinine measurement Serum Creatinine [facility] Start: 01-23-2025 Diabetes: Urine Albumin-Creatinine Ratio for [facility] Diabetes: Urine Albumin-Creatinine Ratio for [facility] [facility] Start: 12-28-2024 Glaucoma screening [facility] Start: 2024 Influenza vaccination [facility] Start: 11-05-2024 BP Controlled (<130/80) BP Controlled (<130/80) [place] in Start: 10-17-2024 Complete blood count Hemoglobin/Hematocrit [facility] Start: 10-17-2024 Creatinine measurement Serum Creatinine [facility] Start: 10-17-2024 Diabetes: Estimated Glomerular Filtration Rate for Kidney Health Diabetes: Estimated Glomerular Filtration Rate for Kidney Health [facility] Start: 10-09-2024 End: 10-09-2024 Patient encounter procedure 10/09/2024 3:45 PM EDT Office Visit [facility] [place] [address] [facility] [address] [place] [address] Jose Dudley MD [address] [place], [place] [id number] follow-up 3m [facility] [place] Comment on above: follow-up Start: 10-09-2024 End: 07-10-2025 25-hydroxyvitamin D3 [Mass/volume] in Serum or Plasma VITAMIN D 25 HYDROXY Lab Routine Vitamin D deficiency Expected: 10/09/2024, Expires: 07/10/2025 [facility] Comment on above: Expected: 10/09/2024, Expires: Start: 10-09-2024 End: 07-10-2025 CBC W Auto Differential panel - Blood COMPLETE BLOOD COUNT AND DIFFERENTIAL Lab Routine Anemia of renal disease Expected: 10/09/2024, Expires: 07/10/2025 [facility] Work Phone: Comment on above: Expected: 10/09/2024, Expires: Start: 10-09-2024 End: 07-10-2025 Magnesium [Mass/volume] in Serum or Plasma MAGNESIUM Lab Routine Stage 5 chronic kidney disease not on chronic dialysis (HCC) Expected: 10/09/2024, Expires: 07/10/2025 [facility] Comment on above: Expected: 10/09/2024, Expires: Start: 10-09-2024 End: 01-08-2025 Microalbumin/Creatinine [Mass Ratio] in Urine ALBUMIN/CREATININE RATIO, URINE Lab Routine Other proteinuria Expected: 10/09/2024, Expires: 01/08/2025 [facility] Comment on above: Expected: 10/09/2024, Expires: Start: 10-09-2024 End: 07-10-2025 Parathyrin.intact [Mass/volume] in Serum or Plasma PTH INTACT Lab Routine Stage 5 chronic kidney disease not on chronic dialysis (HCC) Expected: 10/09/2024, Expires: 07/10/2025 [facility] Comment on above: Expected: 10/09/2024, Expires: Start: 10-09-2024 End: 07-10-2025 Renal function 2000 panel - Serum or Plasma RENAL FUNCTION PANEL Lab Routine Stage 5 chronic kidney disease not on chronic dialysis (HCC) Expected: 10/09/2024, Expires: 07/10/2025 [facility] Comment on above: Expected: 10/09/2024, Expires: Start: 10-09-2024 End: 07-10-2025 Urate [Mass/volume] in Serum or Plasma URIC ACID Lab Routine Stage 5 chronic kidney disease not on chronic dialysis (HCC) Expected: 10/09/2024, Expires: 07/10/2025 [facility] Comment on above: Expected: 10/09/2024, Expires: Start: 10-09-2024 End: 01-08-2025 Urinalysis complete panel - Urine URINALYSIS, WITH MICROSCOPIC Lab Routine Stage 5 chronic kidney disease not on chronic dialysis (HCC) Expected: 10/09/2024, Expires: 01/08/2025 [facility] Comment on above: Expected: 10/09/2024, Expires: Start: 10-08-2024 Complete blood count Hemoglobin/Hematocrit [facility] Start: 10-08-2024 Creatinine measurement Serum Creatinine [facility] Start: 10-05-2024 Hemoglobin A1c measurement Diabetes: Hemoglobin A1C [facility] Start: 09-30-2024 Diabetes: Estimated Glomerular Filtration Rate for Kidney Health Diabetes: Estimated Glomerular Filtration Rate for Kidney Health [facility] Start: 09-27-2024 End: 09-27-2024 Patient encounter procedure 09/27/2024 2:45 PM EDT Office Visit [facility] [address] [place] [address] Renetta Meza MD [address] [place] [address] RTC 9 months diabetic check [facility] Comment on above: RTC 9 months diabetic check Start: 07-24-2024 End: 10-23-2024 25-hydroxyvitamin D3 [Mass/volume] in Serum or Plasma VITAMIN D 25 HYDROXY Lab Routine Stage 3b chronic kidney disease (HCC) Vitamin D deficiency Expected: 07/24/2024, Expires: 10/23/2024 [facility] Comment on above: Expected: 07/24/2024, Expires: Start: 07-24-2024 End: 10-23-2024 CBC W Auto Differential panel - Blood COMPLETE BLOOD COUNT AND DIFFERENTIAL Lab Routine Anemia of renal disease Stage 3b chronic kidney disease (HCC) Expected: 07/24/2024, Expires: 10/23/2024 [facility] Comment on above: Expected: 07/24/2024, Expires: Start: 07-24-2024 End: 10-23-2024 Magnesium [Mass/volume] in Serum or Plasma MAGNESIUM Lab Routine Stage 3b chronic kidney disease (HCC) Expected: 07/24/2024, Expires: 10/23/2024 [facility] Comment on above: Expected: 07/24/2024, Expires: Start: 07-24-2024 End: 10-23-2024 Microalbumin/Creatinine [Mass Ratio] in Urine ALBUMIN/CREATININE RATIO, URINE Lab Routine Stage 3b chronic kidney disease (HCC) Other proteinuria Expected: 07/24/2024, Expires: 10/23/2024 [facility] Comment on above: Expected: 07/24/2024, Expires: Start: 07-24-2024 End: 10-23-2024 Parathyrin.intact [Mass/volume] in Serum or Plasma PTH INTACT Lab Routine Stage 3b chronic kidney disease (HCC) Expected: 07/24/2024, Expires: 10/23/2024 [facility] Comment on above: Expected: 07/24/2024, Expires: Start: 07-24-2024 End: 10-23-2024 Renal function 2000 panel - Serum or Plasma RENAL FUNCTION PANEL Lab Routine Stage 3b chronic kidney disease (HCC) Expected: 07/24/2024, Expires: 10/23/2024 [facility] Comment on above: Expected: 07/24/2024, Expires: Start: 07-24-2024 End: 10-23-2024 Urate [Mass/volume] in Serum or Plasma URIC ACID Lab Routine Stage 3b chronic kidney disease (HCC) Expected: 07/24/2024, Expires: 10/23/2024 [facility] Comment on above: Expected: 07/24/2024, Expires: Start: 07-24-2024 End: 10-23-2024 Urinalysis complete panel - Urine URINALYSIS, WITH MICROSCOPIC Lab Routine Stage 3b chronic kidney disease (HCC) Expected: 07/24/2024, Expires: 10/23/2024 [facility] Comment on above: Expected: 07/24/2024, Expires: Start: 07-12-2024 End: 07-12-2024 Renal biopsy prq trocar/needle BIOPSY KIDNEY PERCUTANEOUS Kidney disease 07/12/2024 1:53 PM EDT [facility] Start: 07-11-2024 End: 10-10-2024 PSA/PROSTATE SPECIFIC ANTIGEN SCREENING PSA/PROSTATE SPECIFIC ANTIGEN SCREENING Lab Routine Nocturia Benign prostatic hyperplasia with nocturia Screening PSA (prostate specific antigen) Expected: 07/11/2024 (Approximate), Expires: 10/10/2024 [facility] Work Phone: Comment on above: Expected: 07/11/2024 (Approximate), Expi res: 10/10/2024 Start: 07-10-2024 End: 07-10-2024 Patient encounter procedure [facility] Comment on above: 6 mo f/u Start: 07-04-2024 End: 10-03-2024 25-hydroxyvitamin D3 [Mass/volume] in Serum or Plasma VITAMIN D 25 HYDROXY Lab Routine Stage 3b chronic kidney disease (HCC) Vitamin D deficiency Expected: 07/04/2024, Expires: 10/03/2024 [facility] Comment on above: Expected: 07/04/2024, Expires: Start: 07-04-2024 End: 10-03-2024 CBC W Auto Differential panel - Blood COMPLETE BLOOD COUNT AND DIFFERENTIAL Lab Routine Anemia of renal disease Stage 3b chronic kidney disease (HCC) Expected: 07/04/2024, Expires: 10/03/2024 [facility] Comment on above: Expected: 07/04/2024, Expires: Start: 07-04-2024 End: 10-03-2024 Magnesium [Mass/volume] in Serum or Plasma MAGNESIUM Lab Routine Stage 3b chronic kidney disease (HCC) Expected: 07/04/2024, Expires: 10/03/2024 [facility] Comment on above: Expected: 07/04/2024, Expires: Start: 07-04-2024 End: 10-03-2024 Microalbumin/Creatinine [Mass Ratio] in Urine ALBUMIN/CREATININE RATIO, URINE Lab Routine Stage 3b chronic kidney disease (HCC) Other proteinuria Expected: 07/04/2024, Expires: 10/03/2024 [facility] Work Phone: Comment on above: Expected: 07/04/2024, Expires: Start: 07-04-2024 End: 10-03-2024 Parathyrin.intact [Mass/volume] in Serum or Plasma PTH INTACT Lab Routine Stage 3b chronic kidney disease (HCC) Chronic kidney disease-mineral and bone disorder Expected: 07/04/2024, Expires: 10/03/2024 [facility] Comment on above: Expected: 07/04/2024, Expires: Start: 07-04-2024 End: 10-03-2024 Renal function 2000 panel - Serum or Plasma RENAL FUNCTION PANEL Lab Routine Stage 3b chronic kidney disease (HCC) Expected: 07/04/2024, Expires: 10/03/2024 [facility] Comment on above: Expected: 07/04/2024, Expires: Start: 07-04-2024 End: 10-03-2024 Urate [Mass/volume] in Serum or Plasma URIC ACID Lab Routine Stage 3b chronic kidney disease (HCC) Expected: 07/04/2024, Expires: 10/03/2024 [facility] Comment on above: Expected: 07/04/2024, Expires: Start: 07-04-2024 End: 10-03-2024 Urinalysis complete panel - Urine URINALYSIS, WITH MICROSCOPIC Lab Routine Stage 3b chronic kidney disease (HCC) Other proteinuria Expected: 07/04/2024, Expires: 10/03/2024 [facility] Comment on above: Expected: 07/04/2024, Expires: Start: 06-12-2024 Creatinine measurement Serum Creatinine [facility] Start: 06-03-2024 Complete blood count Hemoglobin/Hematocrit [facility] Start: 05-24-2024 Diabetes: Urine Albumin-Creatinine Ratio for Kidney Health Diabetes: Urine Albumin-Creatinine Ratio for Kidney Health [facility] Start: 05-24-2024 Hepatitis B screening Urine Albumin:Creatinine Ratio [facility] Start: 05-23-2024 Complete blood count Hemoglobin/Hematocrit [facility] Start: 05-23-2024 Creatinine measurement Serum Creatinine [facility] Start: 05-13-2024 End: 05-13-2024 Patient encounter procedure [facility] Start: 04-07-2024 Hemoglobin A1c measurement HbA1C [facility] Start: 04-03-2024 Medicare Advantage Annual Wellness Visit Medicare Advantage Annual Wellness Visit [facility] Start: 01-24-2024 End: 01-24-2024 Patient encounter procedure 01/24/2024 1:30 PM EDT Office Visit [facility] [place] [address] [facility] [address] [place] [address] Jose Dudley MD [address] [place], [place] [id number] 4 mo f/u [facility] [place] Comment on above: 4 mo f/u Start: 01-22-2024 End: 01-22-2024 Patient encounter procedure 01/22/2024 1:45 PM EDT Office Visit Urology [address] [place] [address] Noé Kennedy MD [address] [place] [address] 6 month folllow up psa prior Urology Comment on above: 6 month folllow up psa prior Start: 01-19-2024 End: 04-19-2024 25-hydroxyvitamin D3 [Mass/volume] in Serum or Plasma VITAMIN D 25 HYDROXY Lab Routine Anemia of renal disease Stage 3b chronic kidney disease (HCC) Vitamin D deficiency Other proteinuria Expected: 01/19/2024, Expires: 04/19/2024 [facility] Comment on above: Expected: 01/19/2024, Expires: Start: 01-19-2024 End: 04-19-2024 CBC W Auto Differential panel - Blood COMPLETE BLOOD COUNT AND DIFFERENTIAL Lab Routine Anemia of renal disease Stage 3b chronic kidney disease (HCC) Vitamin D deficiency Other proteinuria Expected: 01/19/2024, Expires: 04/19/2024 [facility] Comment on above: Expected: 01/19/2024, Expires: Start: 01-19-2024 End: 04-19-2024 Magnesium [Mass/volume] in Serum or Plasma MAGNESIUM Lab Routine Anemia of renal disease Stage 3b chronic kidney disease (HCC) Vitamin D deficiency Other proteinuria Expected: 01/19/2024, Expires: 04/19/2024 [facility] Comment on above: Expected: 01/19/2024, Expires: Start: 01-19-2024 End: 04-19-2024 Microalbumin/Creatinine [Mass Ratio] in Urine ALBUMIN/CREATININE RATIO, URINE Lab Routine Anemia of renal disease Stage 3b chronic kidney disease (HCC) Vitamin D deficiency Other proteinuria Expected: 01/19/2024, Expires: 04/19/2024 [facility] Work Phone: Comment on above: Expected: 01/19/2024, Expires: Start: 01-19-2024 End: 04-19-2024 Parathyrin.intact [Mass/volume] in Serum or Plasma PTH INTACT Lab Routine Anemia of renal disease Stage 3b chronic kidney disease (HCC) Vitamin D deficiency Other proteinuria Expected: 01/19/2024, Expires: 04/19/2024 [facility] Comment on above: Expected: 01/19/2024, Expires: Start: 01-19-2024 End: 04-19-2024 Renal function 2000 panel - Serum or Plasma RENAL FUNCTION PANEL Lab Routine Anemia of renal disease Stage 3b chronic kidney disease (HCC) Vitamin D deficiency Other proteinuria Expected: 01/19/2024, Expires: 04/19/2024 [facility] Comment on above: Expected: 01/19/2024, Expires: Start: 01-19-2024 End: 04-19-2024 Urate [Mass/volume] in Serum or Plasma URIC ACID Lab Routine Anemia of renal disease Stage 3b chronic kidney disease (HCC) Vitamin D deficiency Other proteinuria Expected: 01/19/2024, Expires: 04/19/2024 [facility] Comment on above: Expected: 01/19/2024, Expires: Start: 01-19-2024 End: 04-19-2024 Urinalysis complete panel - Urine URINALYSIS, WITH MICROSCOPIC Lab Routine Anemia of renal disease Stage 3b chronic kidney disease (HCC) Vitamin D deficiency Other proteinuria Expected: 01/19/2024, Expires: 04/19/2024 [facility] Comment on above: Expected: 01/19/2024, Expires: Start: 01-08-2024 End: 04-08-2024 PSA/PROSTATE SPECIFIC ANTIGEN SCREENING PSA/PROSTATE SPECIFIC ANTIGEN SCREENING Lab Routine Nocturia Benign prostatic hyperplasia with nocturia Screening PSA (prostate specific antigen) Expected: 01/08/2024 (Approximate), Expires: 04/08/2024 [facility] Work Phone: Comment on above: Expected: 01/08/2024 (Approximate), Expi res: 04/08/2024 Start: 12-30-2023 Glaucoma screening Dilated Retinal Exam [facility] Start: 12-30-2023 Hepatitis C antibody, confirmatory test Dilated Retinal Exam [facility] Start: 12-29-2023 End: 12-29-2023 Patient encounter procedure 12/29/2023 2:45 PM EDT Office Visit [facility] [address] [facility] [place] [address] Renetta Meza MD [address] [place] [address] RTC 9 months diabetic check [facility] Comment on above: RTC 9 months diabetic check Start: 12-24-2023 Annual PCP Team Chronic Disease Visit Annual PCP Team Chronic Disease Visit [facility] Start: 12-03-2023 Covid-19 Vaccine ( season) Covid-19 Vaccine () [facility] Start: 12-03-2023 Covid-19 Vaccine () Covid-19 Vaccine () [facility] Start: 12-03-2023 Influenza vaccination [facility] Start: 11-21-2023 End: 11-21-2023 Home visit 11/21/2023 2:30 PM EDT OT/PT/Speech Visit [facility] [address] [place] [address] Zafar Aguilar, PT, DPT Post laminectomy/D/C [facility] Comment on above: Post l[facility]ctomy/D/[facility] Start: 11-16-2023 End: 11-16-2023 Home visit [facility] Comment on above: [id number] [place] post laminectomy. DM Wound has a slight amount of drainage, pt on cephalexin. Wound assessment. ?disc dc vs agency dc? Check on therapy plan. Start: 11-10-2023 End: 11-10-2023 Home visit [facility] Comment on above: [phone] [place] post laminectomy. DM Wound has a slight amount of drainage, pt was on cephalexin. Wound assessment. Next to last SN vs, check on therapy plan. ?NOMNC? Start: 11-07-2023 End: 11-07-2023 Home visit [facility] Comment on above: [phone] [place] post laminectomy. DM Wound has a slight amount of drainage, pt on cephalexin. Wound assessment. Please see SOC notes for full info. Start: 11-05-2023 ANNUAL PCP TEAM CHRONIC DISEASE VISIT ANNUAL PCP TEAM CHRONIC DISEASE VISIT [facility] Start: 11-03-2023 End: 11-03-2023 Home visit [facility] Comment on above: [phone] [place] post laminectomy. DM Wound has a slight amount of drainage, pt was on cephalexin. Wound assessment. Please see SOC notes for full info. Start: 11-02-2023 Complete blood count Hemoglobin/Hematocrit [facility] Start: 11-02-2023 Creatinine measurement Serum Creatinine [facility] Start: 11-02-2023 HEMOGLOBIN/HEMATOCRIT HEMOGLOBIN/HEMATOCRIT [facility] Start: 11-02-2023 Hepatitis B surface antibody level LDL CHOLESTEROL [facility] Start: 11-02-2023 SERUM CREATININE SERUM CREATININE [facility] Start: 10-31-2023 End: 10-31-[address] [facility] Comment on above: [id number] [place] post laminectomy. DM Wound has a slight amount of drainage, pt was on cephalexin. Wound assessment. Please see SOC notes for full info. Start: 10-30-2023 End: 10-30-2023 Patient encounter procedure 10/30/2023 11:00 AM EDT Office Visit Endocrinology [address] [place] [address] Ginny Montalvo, [employer] REPRESENTATIVE [address] [place] [address] diabetes follow up Endocrinology Comment on above: diabetes follow up Start: 10-28-2023 End: 10-28-2023 Home visit 10/28/2023 12:00 PM EDT Home Care Visit [facility] [address] [place] [address] Zohaib Abel, PT [address] [place] [address] CONFIRMED FOR SAT 10/27 PTE 10/22-10/26 - KNUP, DELAY CALL MADE Confirmed 11:30 to 12 [facility] Comment on above: CONFIRMED FOR SAT 10/27 - [id number] PTE 10/02 2-10/26 - KNUP, DELAY CALL MADE Confirmed 11:30 to 12 Start: 10-27-2023 End: 10-27-[address] [facility] Comment on above: [id number] PTE - KNUPP [id number] OTE 6 - [place] Start: 10-26-2023 End: 10-26-[address] [facility] Comment on above: [id number] [place] post laminectomy. Wound bartholomew s a slight amount of drainage, pt on cephalexin. Wound assessment and labs due. Please see SOC notes for full info. Start: 10-25-2023 End: 10-25-[address] [facility] Comment on above: [id number] OTE PASS TO T. [place] [id number] PTE [place] Start: 10-24-2023 End: 10-24-[address] [facility] Comment on above: [phone] PTE [place] [id number] OTE Start: 10-23-2023 End: 10-23-2023 Home visit [facility] Comment on above: [id number] PTE [id number] OTE [id number] COORDINATOR SKILL TRAINING PROGRAM [id number] Start: 10-22-2023 Hepatitis C antibody, confirmatory test DILATED RETINAL EXAM [facility] Start: 10-22-2023 End: 10-22-2023 Patient encounter procedure [facility] Comment on above: [id number] CM: Richard HINDS [id number] CM: Richard HINDS M104- 10/19- DID NOT CONFIRM Radiculopathy, lumbar region Start: 10-20-2023 End: 10-20-2023 Patient encounter procedure [facility] Comment on above: RTC 9 months diabetic check Start: 09-29-2023 ANNUAL PCP TEAM CHRONIC DISEASE VISIT ANNUAL PCP TEAM CHRONIC DISEASE VISIT [facility] Start: 09-22-2023 End: 06-21-2024 25-hydroxyvitamin D3 [Mass/volume] in Serum or Plasma VITAMIN D 25 HYDROXY Lab Routine Vitamin D deficiency Expected: 09/22/2023, Expires: 06/21/2024 [facility] Work Phone: Comment on above: Expected: 09/22/2023, Expires: 5 Start: 09-22-2023 End: 12-22-2023 ALBUMIN/CREAT RATIO RND UR ALBUMIN/CREAT RATIO RND UR Lab Routine Other proteinuria Expected: 09/22/2023, Expires: 12/22/2023 [facility] Work Phone: Comment on above: Expected: 09/22/2023, Expires: 4 Start: 09-22-2023 End: 06-21-2024 CBC W Auto Differential panel - Blood CBC + DIFF Lab Routine Anemia of renal disease Expected: 09/22/2023, Expires: 06/21/2024 [facility] Work Phone: Comment on above: Expected: 09/22/2023, Expires: 5 Start: 09-22-2023 End: 06-21-2024 Magnesium [Mass/volume] in Serum or Plasma MAGNESIUM BLD Lab Routine Stage 3b chronic kidney disease (HCC) Expected: 09/22/2023, Expires: 06/21/2024 [facility] Work Phone: Comment on above: Expected: 09/22/2023, Expires: 5 Start: 09-22-2023 End: 06-21-2024 Parathyrin.intact [Mass/volume] in Serum or Plasma PTH INTACT BLD Lab Routine Stage 3b chronic kidney disease (HCC) Expected: 09/22/2023, Expires: 06/21/2024 [facility] Work Phone: Comment on above: Expected: 09/22/2023, Expires: 5 Start: 09-22-2023 End: 06-21-2024 Renal function 2000 panel - Serum or Plasma RENAL FUNCTION PANEL Lab Routine Stage 3b chronic kidney disease (HCC) Expected: 09/22/2023, Expires: 06/21/2024 [facility] Work Phone: Comment on above: Expected: 09/22/2023, Expires: 5 Start: 09-22-2023 End: 06-21-2024 Urate [Mass/volume] in Serum or Plasma URIC ACID BLOOD Lab Routine Stage 3b chronic kidney disease (HCC) Expected: 09/22/2023, Expires: 06/21/2024 [facility] Work Phone: Comment on above: Expected: 09/22/2023, Expires: 5 Start: 09-22-2023 End: 12-22-2023 Urinalysis complete panel - Urine URINALYSIS, WITH MICROSCOPIC Lab Routine Stage 3b chronic kidney disease (HCC) Expected: 09/22/2023, Expires: 12/22/2023 [facility] Work Phone: Comment on above: Expected: 09/22/2023, Expires: 4 Start: 09-17-2023 ANNUAL PCP TEAM CHRONIC DISEASE VISIT ANNUAL PCP TEAM CHRONIC DISEASE VISIT [facility] Start: 09-17-2023 SERUM CREATININE SERUM CREATININE [facility] Start: 09-16-2023 HEMOGLOBIN/HEMATOCRIT HEMOGLOBIN/HEMATOCRIT [facility] Start: 08-21-2023 Hemoglobin A1c measurement HbA1C [facility] Start: 08-13-2023 3 comp foot exam completed DIABETIC FOOT EXAM [facility] Start: 08-13-2023 ANNUAL PCP TEAM CHRONIC DISEASE VISIT ANNUAL PCP TEAM CHRONIC DISEASE VISIT [facility] Start: 08-13-2023 COVID-19 VACCINE (#1) COVID-19 VACCINE (#1) [facility] Comment on above: Postponed from 05/31/1961 (Declined at t his time) Start: 08-13-2023 Diabetic foot examination Diabetic Foot Exam [facility] Start: 08-13-2023 PNEUMOCOCCAL (2 - PCV) PNEUMOCOCCAL (2 - PCV) [facility] Start: 08-13-2023 [facility] Start: 08-13-2023 Pneumococcal Vaccine: 50+ (2 of 2 - PCV) Pneumococcal Vaccine: 50+ (2 of 2 - PCV) [facility] Start: 08-13-2023 Pneumococcal Vaccine: 50+ Years (2 of 2 - PCV) Pneumococcal Vaccine: 50+ Years (2 of 2 - PCV) [facility] Start: 07-15-2023 Hepatitis C antibody, confirmatory test DILATED RETINAL EXAM [facility] Start: 07-12-2023 End: 10-11-2023 PSA/PROSTATE SPECIFIC ANTIGEN SCREENING PSA/PROSTATE SPECIFIC ANTIGEN SCREENING Lab Routine Nocturia Benign prostatic hyperplasia with nocturia Screening PSA (prostate specific antigen) Expected: 07/12/2023, Expires: 10/11/2023 [facility] Work Phone: Comment on above: Expected: 07/12/2023, Expires: 4 Start: 06-30-2023 ANNUAL PCP TEAM CHRONIC DISEASE VISIT ANNUAL PCP TEAM CHRONIC DISEASE VISIT [facility] Start: 06-28-2023 Hepatitis B surface antibody level LDL CHOLESTEROL [facility] Start: 06-28-2023 SERUM CREATININE SERUM CREATININE [facility] Start: 06-23-2023 Influenza vaccination LUNG CANCER SCREENING [facility] Start: 06-23-2023 Screening for malignant neoplasm of lung Lung Cancer Screening [facility] Start: 06-20-2023 End: 09-19-2023 25-hydroxyvitamin D3 [Mass/volume] in Serum or Plasma VITAMIN D 25 HYDROXY Lab Routine Stage 3a chronic kidney disease (HCC) Hypertension, essential Vitamin D deficiency Expected: 06/20/2023, Expires: 09/19/2023 [facility] Work Phone: Comment on above: Expected: 06/20/2023, Expires: 4 Start: 06-20-2023 End: 09-19-2023 ALBUMIN/CREAT RATIO RND UR ALBUMIN/CREAT RATIO RND UR Lab Routine Stage 3a chronic kidney disease (HCC) Hypertension, essential Other proteinuria Expected: 06/20/2023, Expires: 09/19/2023 [facility] Work Phone: Comment on above: Expected: 06/20/2023, Expires: 4 Start: 06-20-2023 End: 09-19-2023 CBC W Auto Differential panel - Blood CBC + DIFF Lab Routine Stage 3a chronic kidney disease (HCC) Hypertension, essential Expected: 06/20/2023, Expires: 09/19/2023 [facility] Work Phone: Comment on above: Expected: 06/20/2023, Expires: 4 Start: 06-20-2023 End: 09-19-2023 Magnesium [Mass/volume] in Serum or Plasma MAGNESIUM BLD Lab Routine Stage 3a chronic kidney disease (HCC) Hypertension, essential Expected: 06/20/2023, Expires: 09/19/2023 [facility] Work Phone: Comment on above: Expected: 06/20/2023, Expires: 4 Start: 06-20-2023 End: 09-19-2023 Parathyrin.intact [Mass/volume] in Serum or Plasma PTH INTACT BLD Lab Routine Stage 3a chronic kidney disease (HCC) Hypertension, essential Secondary hyperparathyroidism (HCC) Expected: 06/20/2023, Expires: 09/19/2023 [facility] Work Phone: Comment on above: Expected: 06/20/2023, Expires: 4 Start: 06-20-2023 End: 09-19-2023 Renal function 2000 panel - Serum or Plasma RENAL FUNCTION PANEL Lab Routine Stage 3a chronic kidney disease (HCC) Hypertension, essential Expected: 06/20/2023, Expires: 09/19/2023 [facility] Work Phone: Comment on above: Expected: 06/20/2023, Expires: 4 Start: 06-20-2023 End: 09-19-2023 Urate [Mass/volume] in Serum or Plasma URIC ACID BLOOD Lab Routine Stage 3a chronic kidney disease (HCC) Hypertension, essential Expected: 06/20/2023, Expires: 09/19/2023 [facility] Work Phone: Comment on above: Expected: 06/20/2023, Expires: 4 Start: 06-20-2023 End: 09-19-2023 Urinalysis complete panel - Urine URINALYSIS, WITH MICROSCOPIC Lab Routine Stage 3a chronic kidney disease (HCC) Hypertension, essential Other proteinuria Expected: 06/20/2023, Expires: 09/19/2023 [facility] Work Phone: Comment on above: Expected: 06/20/2023, Expires: Start: 06-02-2023 HEMOGLOBIN/HEMATOCRIT HEMOGLOBIN/HEMATOCRIT [facility] Start: 06-02-2023 SERUM CREATININE SERUM CREATININE [facility] Start: 05-18-2023 ANNUAL PCP TEAM CHRONIC DISEASE VISIT ANNUAL PCP TEAM CHRONIC DISEASE VISIT [facility] Start: 05-09-2023 End: 07-09-2023 ALBUMIN/CREAT RATIO RND UR ALBUMIN/CREAT RATIO RND UR Lab Routine Diabetes mellitus due to underlying condition, uncontrolled, with hyperglycemia (HCC) Expected: 05/09/2023, Expires: 07/09/2023 [facility] Work Phone: Comment on above: Expected: 05/09/2023, Expires: Start: 04-13-2023 ANNUAL PCP TEAM CHRONIC DISEASE VISIT ANNUAL PCP TEAM CHRONIC DISEASE VISIT [facility] Start: 04-03-2023 Medicare Advantage Annual Wellness Visit Medicare Advantage Annual Wellness Visit [facility] Start: 04-01-2023 SERUM CREATININE SERUM CREATININE [facility] Start: 03-21-2023 Hepatitis B surface antibody level LDL CHOLESTEROL [facility] Start: 03-01-2023 ANNUAL PCP TEAM CHRONIC DISEASE VISIT ANNUAL PCP TEAM CHRONIC DISEASE VISIT [facility] Start: 02-16-2023 DIABETES SCREEN DIABETES SCREEN [facility] Start: 02-12-2023 End: 04-14-2023 ALBUMIN/CREAT RATIO RND UR ALBUMIN/CREAT RATIO RND UR Lab Routine Microalbuminuria Expected: 02/12/2023, Expires: 04/14/2023 [facility] Work Phone: Comment on above: Expected: 02/12/2023, Expires: 4 Start: 02-01-2023 Hemoglobin A1c measurement HbA1C [facility] Start: 02-01-2023 Hemoglobin A1c/Hemoglobin.total in Blood HBA1C [facility] Start: 01-26-2023 SERUM CREATININE SERUM CREATININE [facility] Start: 01-23-2023 Hepatitis B screening URINE ALBUMIN:CREATININE RATIO [facility] Start: 01-20-2023 Hepatitis B surface antibody level LDL CHOLESTEROL [facility] Start: 01-20-2023 SERUM CREATININE SERUM CREATININE [facility] Start: 01-18-2023 SERUM CREATININE SERUM CREATININE [facility] Start: 01-17-2023 SERUM CREATININE SERUM CREATININE [facility] Start: 01-03-2023 ANNUAL PCP TEAM CHRONIC DISEASE VISIT ANNUAL PCP TEAM CHRONIC DISEASE VISIT [facility] Start: 01-03-2023 Hepatitis B surface antibody level LDL CHOLESTEROL [facility] Start: 01-03-2023 SERUM CREATININE SERUM CREATININE [facility] Start: 12-06-2022 End: 02-05-2023 Carcinoembryonic Ag [Mass/volume] in Serum or Plasma CEA BLD Lab Routine History of rectal cancer Expected: 12/06/2022 (Approximate), Expires: 02/05/2023 [facility] Work Phone: Comment on above: Expected: 12/06/2022 (Approximate), Expi res: 02/05/2023 Start: 12-06-2022 End: 02-05-2023 CBC W Auto Differential panel - Blood CBC + DIFF Lab Routine History of rectal cancer Expected: 12/06/2022 (Approximate), Expires: 02/05/2023 [facility] Work Phone: Comment on above: Expected: 12/06/2022 (Approximate), Expi res: 02/05/2023 Start: 12-06-2022 End: 02-05-2023 Comprehensive metabolic 2000 panel - Serum or Plasma COMP METABOLIC PANEL Lab Routine History of rectal cancer Expected: 12/06/2022 (Approximate), Expires: 02/05/2023 [facility] Work Phone: Comment on above: Expected: 12/06/2022 (Approximate), Expi res: 02/05/2023 Start: 2022 Covid-19 Vaccine () Covid-19 Vaccine () [facility] Start: 2022 Influenza vaccination [facility] Start: 11-05-2022 ANNUAL PCP TEAM CHRONIC DISEASE VISIT ANNUAL PCP TEAM CHRONIC DISEASE VISIT [facility] Start: 11-05-2022 Hepatitis C antibody, confirmatory test DILATED RETINAL EXAM [facility] Start: 10-05-2022 ANNUAL PCP TEAM CHRONIC DISEASE VISIT ANNUAL PCP TEAM CHRONIC DISEASE VISIT [facility] Start: 10-05-2022 BP CONTROLLED (<130/80) BP CONTROLLED (<130/80) [place] in Start: 10-05-2022 COLORECTAL CANCER SCREENING COLORECTAL CANCER SCREENING [facility] Comment on above: Postponed from 12/01/2004 (Declined at t his time) Start: 09-29-2022 Hemoglobin A1c/Hemoglobin.total in Blood HBA1C [facility] Start: 09-20-2022 ANNUAL PCP TEAM CHRONIC DISEASE VISIT ANNUAL PCP TEAM CHRONIC DISEASE VISIT [facility] Start: 09-20-2022 Hepatitis B surface antibody level LDL CHOLESTEROL [facility] Start: 09-06-2022 HEMOGLOBIN/HEMATOCRIT HEMOGLOBIN/HEMATOCRIT [facility] Start: 08-15-2022 Hemoglobin A1c/Hemoglobin.total in Blood HBA1C [facility] Start: 08-12-2022 End: 05-09-2023 25-hydroxyvitamin D3 [Mass/volume] in Serum or Plasma VITAMIN D 25 HYDROXY Lab Routine Vitamin D deficiency Expected: 08/12/2022, Expires: 05/09/2023 [facility] Work Phone: Comment on above: Expected: 08/12/2022, Expires: 4 Start: 08-12-2022 End: 10-12-2022 CBC W Auto Differential panel - Blood CBC + DIFF Lab Routine Screening for deficiency anemia Expected: 08/12/2022, Expires: 10/12/2022 [facility] Work Phone: Comment on above: Expected: 08/12/2022, Expires: 3 Start: 08-12-2022 End: 10-12-2022 Comprehensive metabolic 2000 panel - Serum or Plasma COMP METABOLIC PANEL Lab Routine Hypertension, essential Expected: 08/12/2022, Expires: 10/12/2022 [facility] Work Phone: Comment on above: Expected: 08/12/2022, Expires: 3 Start: 08-12-2022 End: 10-12-2022 Hemoglobin A1c in Blood HGB A1C Lab Routine Diabetes mellitus due to underlying condition, uncontrolled, with hyperglycemia (HCC) Expected: 08/12/2022, Expires: 10/12/2022 [facility] Work Phone: Comment on above: Expected: 08/12/2022, Expires: 3 Start: 08-12-2022 End: 10-12-2022 Lipid 1996 panel - Serum or Plasma LIPID PANEL BASIC Lab Routine Mixed hyperlipidemia Expected: 08/12/2022, Expires: 10/12/2022 [facility] Work Phone: Comment on above: Expected: 08/12/2022, Expires: 3 Start: 08-12-2022 End: 10-12-2022 PSA/PROSTSPECAG SCRN PSA/PROSTSPECAG SCRN Lab Routine Screening for prostate cancer Expected: 08/12/2022, Expires: 10/12/2022 [facility] Work Phone: Comment on above: Expected: 08/12/2022, Expires: 3 Start: 08-12-2022 End: 10-12-2022 Thyrotropin [Units/volume] in Serum or Plasma TSH BLD Lab Routine Hyponatremia Screening for thyroid disorder Expected: 08/12/2022, Expires: 10/12/2022 [facility] Work Phone: Comment on above: Expected: 08/12/2022, Expires: 3 Start: 08-11-2022 ANNUAL PCP TEAM CHRONIC DISEASE VISIT ANNUAL PCP TEAM CHRONIC DISEASE VISIT [facility] Start: 08-11-2022 BP CONTROLLED (<130/80) BP CONTROLLED (<130/80) [place] [facility] Start: 08-05-2022 COVID-19 VACCINE (#1) COVID-19 VACCINE (#1) [facility] Comment on above: Postponed from 12/01/1964 (Declined at t his time) Postponed from 05/31 (Declined at this time) Start: 08-05-2022 COVID-19 VACCINE (1) COVID-19 VACCINE (1) [facility] Comment on above: Postponed from 12/01/1964 (Declined at t his time) Start: 08-05-2022 ONE PNEUMOVAX PRIOR TO AGE 64 ONE PNEUMOVAX PRIOR TO AGE 64 [facility] Comment on above: Postponed from 1975 (Declined at t his time) Start: 08-05-2022 PNEUMOCOCCAL (1 - PCV) PNEUMOCOCCAL (1 - PCV) [facility] Comment on above: Postponed from 12/01/1965 (Declined at t his time) Start: 08-02-2022 End: 10-02-2022 ALBUMIN/CREAT RATIO RND UR ALBUMIN/CREAT RATIO RND UR Lab Routine Microalbuminuria Expected: 08/02/2022, Expires: 10/02/2022 [facility] Work Phone: Comment on above: Expected: 08/02/2022, Expires: Start: 07-12-2022 Hemoglobin A1c/Hemoglobin.total in Blood HBA1C [facility] Start: 07-05-2022 ANNUAL PCP TEAM CHRONIC DISEASE VISIT ANNUAL PCP TEAM CHRONIC DISEASE VISIT [facility] Start: 07-05-2022 Hepatitis B screening URINE ALBUMIN:CREATININE RATIO [facility] Start: 07-05-2022 Hepatitis B surface antibody level LDL CHOLESTEROL [facility] Start: 06-02-2022 3 comp foot exam completed DIABETIC FOOT EXAM [facility] Start: 06-02-2022 ANNUAL PCP TEAM CHRONIC DISEASE VISIT ANNUAL PCP TEAM CHRONIC DISEASE VISIT [facility] Start: 05-31-2022 Hemoglobin A1c/Hemoglobin.total in Blood HBA1C [facility] Start: 05-18-2022 End: 02-12-2023 25-hydroxyvitamin D3 [Mass/volume] in Serum or Plasma VITAMIN D 25 HYDROXY Lab Routine Vitamin D deficiency Expected: 05/18/2022, Expires: 02/12/2023 [facility] Work Phone: Comment on above: Expected: 05/18/2022, Expires: 3 Start: 05-18-2022 End: 07-18-2022 Comprehensive metabolic 2000 panel - Serum or Plasma COMP METABOLIC PANEL Lab Routine Hypertension, essential Hyponatremia Stage 3a chronic kidney disease (HCC) Expected: 05/18/2022, Expires: 07/18/2022 [facility] Work Phone: Comment on above: Expected: 05/18/2022, Expires: 3 Start: 05-18-2022 End: 07-18-2022 Lipid 1996 panel - Serum or Plasma LIPID PANEL BASIC Lab Routine Mixed hyperlipidemia Expected: 05/18/2022, Expires: 07/18/2022 [facility] Work Phone: Comment on above: Expected: 05/18/2022, Expires: 3 Start: 05-18-2022 End: 07-18-2022 Thyrotropin [Units/volume] in Serum or Plasma TSH BLD Lab Routine Hypertension, essential Expected: 05/18/2022, Expires: 07/18/2022 [facility] Work Phone: Comment on above: Expected: 05/18/2022, Expires: 3 Start: 04-09-2022 Hepatitis B screening URINE ALBUMIN:CREATININE RATIO [facility] Start: 04-09-2022 Hepatitis B surface antibody level LDL CHOLESTEROL [facility] Start: 04-05-2022 Hemoglobin A1c/Hemoglobin.total in Blood HBA1C [facility] Start: 03-01-2022 End: 11-26-2022 25-hydroxyvitamin D3 [Mass/volume] in Serum or Plasma VITAMIN D 25 HYDROXY Lab Routine Vitamin D deficiency Expected: 03/01/2022, Expires: 11/26/2022 [facility] Work Phone: Comment on above: Expected: 03/01/2022, Expires: 3 Start: 03-01-2022 End: 05-01-2022 Lipid 1996 panel - Serum or Plasma LIPID PANEL BASIC Lab Routine Mixed hyperlipidemia Expected: 03/01/2022, Expires: 05/01/2022 [facility] Work Phone: Comment on above: Expected: 03/01/2022, Expires: 3 Start: 02-05-2022 Hemoglobin A1c/Hemoglobin.total in Blood HBA1C [facility] Start: 01-05-2022 Hemoglobin A1c/Hemoglobin.total in Blood HBA1C [facility] Start: 12-21-2021 Hemoglobin A1c/Hemoglobin.total in Blood HBA1C [facility] Start: 2021 Influenza vaccination INFLUENZA (#1) [facility] Start: 11-11-2021 Hemoglobin A1c/Hemoglobin.total in Blood HBA1C [facility] Start: 11-05-2021 End: 08-02-2022 25-hydroxyvitamin D3 [Mass/volume] in Serum or Plasma VITAMIN D 25 HYDROXY Lab Routine Vitamin D deficiency Expected: 11/05/2021, Expires: 08/02/2022 [facility] Work Phone: Comment on above: Expected: 11/05/2021, Expires: 3 Start: 11-05-2021 End: 08-02-2022 Basic metabolic 2000 panel - Serum or Plasma BASIC METABOLIC PNL Lab Routine Hyponatremia Expected: 11/05/2021, Expires: 08/02/2022 [facility] Work Phone: Comment on above: Expected: 11/05/2021, Expires: 3 Start: 11-05-2021 End: 01-05-2022 Lipid 1996 panel - Serum or Plasma LIPID PANEL BASIC Lab Routine Mixed hyperlipidemia Expected: 11/05/2021, Expires: 01/05/2022 [facility] Work Phone: Comment on above: Expected: 11/05/2021, Expires: 2 Start: 10-27-2021 End: 12-27-2021 PSA/PROSTSPECAG SCRN PSA/PROSTSPECAG SCRN Lab Routine Benign prostatic hyperplasia with nocturia Hematuria, microscopic Screening PSA (prostate specific antigen) Nocturia Expected: 10/27/2021, Expires: 12/27/2021 [facility] Work Phone: Comment on above: Expected: 10/27/2021, Expires: 2 Start: 10-05-2021 End: 12-05-2021 Clostridioides difficile toxin genes [Presence] in Stool by BETO with probe detection C. DIFFICILE PCR Lab Routine Diarrhea, unspecified type Expected: 10/05/2021, Expires: 12/05/2021 [facility] Work Phone: Comment on above: Expected: 10/05/2021, Expires: 2 Start: 10-05-2021 End: 12-05-2021 Gastrointestinal pathogens panel - Stool by Culture STOOL CULTURE/EIA Microbiology Routine Diarrhea, unspecified type Expected: 10/05/2021, Expires: 12/05/2021 [facility] Work Phone: Comment on above: Expected: 10/05/2021, Expires: 2 Start: 10-05-2021 End: 12-05-2021 Giardia lamblia+Cryptosporidium sp Ag [Presence] in Stool by Immunoassay CRYPTOSPORIDIUM AND GIARDIA ANTIGENS BY EIA Microbiology Routine Diarrhea, unspecified type Expected: 10/05/2021, Expires: 12/05/2021 [facility] Work Phone: Comment on above: Expected: 10/05/2021, Expires: 2 Start: 10-04-2021 Hemoglobin A1c/Hemoglobin.total in Blood HBA1C [facility] Start: 09-20-2021 End: 06-17-2022 25-hydroxyvitamin D3 [Mass/volume] in Serum or Plasma [facility] Work Phone: Comment on above: Expected: 09/20/2021, Expires: 3 Start: 09-20-2021 End: 06-17-2022 Comprehensive metabolic 2000 panel - Serum or Plasma [facility] Work Phone: Comment on above: Expected: 09/20/2021, Expires: 3 Start: 09-20-2021 End: 11-20-2021 Lipid 1996 panel - Serum or Plasma [facility] Work Phone: Comment on above: Expected: 09/20/2021, Expires: 2 Start: 09-20-2021 End: 11-20-2021 Thyrotropin [Units/volume] in Serum or Plasma [facility] Work Phone: Comment on above: Expected: 09/20/2021, Expires: 2 Start: 09-02-2021 Hemoglobin A1c/Hemoglobin.total in Blood HBA1C [facility] Start: 08-11-2021 BP CONTROLLED (<130/80) BP CONTROLLED (<130/80) [place] [facility] Start: 08-11-2021 End: 05-08-2022 Comprehensive metabolic 2000 panel - Serum or Plasma COMP METABOLIC PANEL Lab Routine Elevated alkaline phosphatase level Elevated serum creatinine Hyperkalemia Expected: 08/11/2021, Expires: 05/08/2022 [facility] Work Phone: Comment on above: Expected: 08/11/2021, Expires: 3 Start: 08-11-2021 End: 10-11-2021 LIPID PANEL BASIC LIPID PANEL BASIC Lab Routine Mixed hyperlipidemia Expected: 08/11/2021, Expires: 10/11/2021 [facility] Work Phone: Comment on above: Expected: 08/11/2021, Expires: 2 Start: 08-05-2021 Influenza vaccination LUNG CANCER SCREENING [facility] Start: 07-31-2021 Hepatitis C antibody, confirmatory test DILATED RETINAL EXAM [facility] Start: 07-24-2021 Colonoscopy COLONOSCOPY [facility] Start: 07-24-2021 COLORECTAL CANCER SCREENING COLORECTAL CANCER SCREENING [facility] Start: 07-24-2021 Screening for malignant neoplasm of colon [facility] Start: 05-28-2021 Adult depression screening assessment DEPRESSION SCREENING [facility] Start: 05-28-2021 ANNUAL PCP TEAM CHRONIC DISEASE VISIT ANNUAL PCP TEAM CHRONIC DISEASE VISIT [facility] Start: 05-14-2021 Hepatitis B screening URINE ALBUMIN:CREATININE RATIO [facility] Start: 05-14-2021 Hepatitis B surface antibody level LDL CHOLESTEROL [facility] Start: 04-27-2021 ANNUAL PCP TEAM CHRONIC DISEASE VISIT ANNUAL PCP TEAM CHRONIC DISEASE VISIT [facility] Start: 03-23-2021 [object Object] DIABETIC FOOT EXAM [facility] Start: 03-23-2021 ANNUAL PCP TEAM CHRONIC DISEASE VISIT ANNUAL PCP TEAM CHRONIC DISEASE VISIT [facility] Start: 02-19-2021 ANNUAL PCP TEAM CHRONIC DISEASE VISIT ANNUAL PCP TEAM CHRONIC DISEASE VISIT [facility] Start: 02-16-2021 Hepatitis B screening URINE ALBUMIN:CREATININE RATIO [facility] Start: 02-16-2021 Hepatitis B surface antibody level LDL CHOLESTEROL [facility] Start: 02-13-2021 Adult depression screening assessment DEPRESSION SCREENING [facility] Start: 08-11-2020 HbA1c (Bld) [Mass fraction] HBA1C [facility] Start: 05-19-2020 HbA1c (Bld) [Mass fraction] HBA1C [facility] Start: 05-18-2020 SHINGRIX VACCINE (2 of 2) SHINGRIX VACCINE (2 of 2) [facility] Start: 04-27-2020 End: 04-27-2021 HbA1c (Bld) [Mass fraction] HGB A1C Lab Routine Diabetes mellitus due to underlying condition, uncontrolled, with hyperglycemia (HCC) Expected: 04/27/2020, Expires: 04/27/2021 [facility] Comment on above: Expected: 04/27/2020, Expires: 2 Start: 02-14-2020 End: 02-13-2021 HbA1c (Bld) [Mass fraction] HGB A1C Lab Routine Controlled type 2 diabetes mellitus without complication, without long-term current use of insulin (HCC) Expected: 02/14/2020, Expires: 02/13/2021 [facility] Comment on above: Expected: 02/14/2020, Expires: 1 Start: 12-03-2019 Influenza vaccination INFLUENZA (#1) [facility] Start: 2019 Hepatitis B Vaccine (1 of 3 - Risk 3-dose series) Hepatitis B Vaccine (1 of 3 - Risk 3-dose series) [facility] Start: 2019 RSV Immunization aged 60 or older (1 - 1-dose 60+ series) RSV Immunization aged 60 or older (1 - 1-dose 60+ series) [facility] Start: 2019 RSV Immunization for Adults (1 - Risk 60-74 years 1-dose series) RSV Immunization for Adults (1 - Risk 60-74 years 1-dose series) [facility] Start: 2019 RSV Vaccine (1 - 1-dose 60+ series) RSV Vaccine (1 - 1-dose 60+ series) [facility] Start: 2019 RSV Vaccine (1 - Risk 60-74 years 1-dose series) RSV Vaccine (1 - Risk 60-74 years 1-dose series) [facility] Start: 12-01-2014 PROSTATE CANCER SCREENING DISCUSSION PROSTATE CANCER SCREENING DISCUSSION [facility] Start: 12-01-2009 COLORECTAL CANCER SCREENING,SEE MODIFIER COLORECTAL CANCER SCREENING,SEE MODIFIER [facility] Start: 12-01-2009 Screening for malignant neoplasm of colon [facility] Start: 12-01-2009 SHINGRIX VACCINE (1 of 2) SHINGRIX VACCINE (1 of 2) [facility] Start: 12-01-2004 COLOGUARD (FIT-DNA) COLOGUARD (FIT-DNA) [facility] Start: 12-01-[address] COLONOGRAPHY [facility] Start: 12-01-2004 DIABETES SCREEN DIABETES SCREEN [facility] Start: 12-01-2004 FECAL OCCULT BLOOD FECAL OCCULT BLOOD [facility] Start: 12-01-2004 Screening for malignant neoplasm of colon [facility] Start: 12-01-2004 SIGMOIDOSCOPY SIGMOIDOSCOPY [facility] Start: 12-01-1994 LIPID SCREEN LIPID SCREEN [facility] Start: 12-01-1978 Urine microalbumin profile DTAP,TDAP,TD (1 - Tdap) [facility] Start: 12-01-1977 BP CONTROLLED (<130/80) BP CONTROLLED (<130/80) [place] in Start: 12-01-1977 HEPATITIS C SCREENING HEPATITIS C SCREENING [facility] Start: 12-01-1977 Hepatitis C screening Hepatitis C Screening [facility] Start: 12-01-1977 HIV SCREENING HIV SCREENING [facility] Start: 1975 ONE PNEUMOVAX PRIOR TO AGE 65 ONE PNEUMOVAX PRIOR TO AGE 65 [facility] Start: 1971 Depression Monitoring Depression Monitoring [facility] Start: 1971 Depression Screening Depression Screening [facility] Start: 12-01-1969 [object Object] DIABETIC FOOT EXAM [facility] Start: 12-01-1969 Diabetic foot examination Diabetes: Foot Exam [facility] Start: 12-01-1969 Glaucoma screening Diabetes: Retinopathy Screening [facility] Start: 12-01-1969 Hepatitis C antibody, confirmatory test DILATED RETINAL EXAM [facility] Start: 12-01-1969 Preventive dental service Diabetes: Dental Exam [facility] Start: 12-01-1965 PNEUMOCOCCAL (1 - PCV) PNEUMOCOCCAL (1 - PCV) [facility] Start: 12-01-1964 COVID-19 VACCINE (1) COVID-19 VACCINE (1) [facility] Start: 12-01-1960 MMR Vaccines (1 of 1 - Standard series) MMR Vaccines (1 of 1 - Standard series) [facility] Start: 05-31-1960 COVID-19 VACCINE (#1) COVID-19 VACCINE (#1) [facility] Start: 1959 Annual wellness visit Medicare Initial Physical (IPPE) [facility] Start: 1959 HIV screening HIV Screening [facility] Start: 1959 Lipid panel Lipid Panel [facility] Start: 1959 Screening for malignant neoplasm of colon [facility] ACCUCHECK B/O ACCUCHECK B/O La b Routine Diabetes mellitus due to underlying condition, uncontrolled, with hyperglycemia (HCC) Ordered: 01/03/2022 [facility] Work Phone: Comment on above: Ordered: 01/03/2022 ACCUCHECK B/O ACCUCHECK B/O La b Routine Diabetes mellitus due to underlying condition, uncontrolled, with hyperglycemia (HCC) Ordered: 03/01/2022 [facility] Work Phone: Comment on above: Ordered: 03/01/2022 ACCUCHECK B/O ACCUCHECK B/O La b Routine Diabetes mellitus due to underlying condition, uncontrolled, with hyperglycemia (HCC) Ordered: 05/18/2022 [facility] Work Phone: Comment on above: Ordered: 05/18/2022 End: 02-13-2021 ALBUMIN/CREAT RATIO RND UR ALBUMIN/CREAT RATIO RND UR Lab Routine Controlled type 2 diabetes mellitus without complication, without long-term current use of insulin (HCC) 1 Occurrences starting 02/14/2020 until 02/13/2021 [facility] Comment on above: 1 Occurrences starting 02/14/2020 until 02/13/2021 End: 04-27-2021 ALBUMIN/CREAT RATIO RND UR ALBUMIN/CREAT RATIO RND UR Lab Routine Diabetes mellitus due to underlying condition, uncontrolled, with hyperglycemia (HCC) 1 Occurrences starting 04/27/2020 until 04/27/2021 [facility] Comment on above: 1 Occurrences starting 04/27/2020 until 04/27/2021 Bacteria identified in Blood by Culture [facility] Work Phone: Bacteria identified in Blood by Culture Blood culture Site #1 - Suspected Infection Microbiology STAT 11/27/2024 3:39 AM EDT [facility] Work Phone: End: 02-13-2021 CBC W Auto Differential panel - Blood CBC + DIFF Lab Routine Routine physical examination 1 Occurrences starting 02/14/2020 until 02/13/2021 [facility] Comment on above: 1 Occurrences starting 02/14/2020 until 02/13/2021 Comprehensive metabo lic 2000 panel COMP METABOLIC PANEL Lab Routine Routine physical examination 1 Occurrences starting 02/14/2020 [facility] Comment on above: 1 Occurrences starting 02/14/2020 End: 02-19-2021 CREATININE BLD CREATININE BLD Lab Routine Dizziness 1 Occurrences starting 02/20/2020 until 02/19/2021 [facility] Comment on above: 1 Occurrences starting 02/20/2020 until 02/19/2021 Ct angiography head w/contrast/noncontrast CTA HEAD WO/W IVCON Radiology Routine Dizziness and giddiness Ordered: 02/20/2020 [facility] Comment on above: Ordered: 02/20/2020 End: 07-05-2023 Ct thorax w/o contrast material CT CHEST WO IVCON Radiology Routine Pulmonary nodules 1 Occurrences starting 06/05/2022 until 07/05/2023 [facility] Work Phone: Comment on above: 1 Occurrences starting 06/05/2022 until 07/05/2023 ECG B/O WO INTERP ( ED OFFICE) [facility] Comment on above: Ordered: 02/14/2020 Ordered: 02/20/2020 Ordered: 05/28/2020 ECG B/O WO INTERP (M ED OFFICE) ECG B/O WO INTERP (MED OFFICE) ECG Routine Hypertension, essential Ordered: 08/12/2022 [facility] Work Phone: Comment on above: Ordered: 08/12/2022 ECG B/O WO INTERP (M ED OFFICE) ECG B/O WO INTERP (MED OFFICE) ECG Routine Myocardial infarction due to demand ischemia (HCC) Hypertension, essential Ordered: 09/28/2022 [facility] Work Phone: Comment on above: Ordered: 09/28/2022 End: 10-14-2023 Echocardiography ECHO Cardiology Routine OTT (dyspnea on exertion) 1 Occurrences starting 10/13/2022 until 10/14/2023 [facility] Work Phone: Comment on above: 1 Occurrences starting 10/13/2022 until 10/14/2023 Glucose [Mass/volume ] in Serum or Plasma GLUCOSE, BLOOD (POC) Lab Routine Diabetes mellitus due to underlying condition, uncontrolled, with hyperglycemia (HCC) Ordered: 08/11/2021 [facility] Work Phone: Comment on above: Ordered: 08/11/2021 Glucose [Mass/volume ] in Serum or Plasma GLUCOSE, BLOOD (POC) Lab Routine Diabetes mellitus due to underlying condition, uncontrolled, with hyperglycemia (HCC) Ordered: 09/20/2021 [facility] Work Phone: Comment on above: Ordered: 09/20/2021 Glucose [Mass/volume ] in Serum or Plasma GLUCOSE, BLOOD (POC) Lab Routine Diabetes mellitus due to underlying condition, uncontrolled, with hyperglycemia (HCC) Ordered: 10/05/2021 [facility] Work Phone: Comment on above: Ordered: 10/05/2021 H&P for surgery H&P FOR SURGERY Procedures Routine History of rectal cancer Ordered: 09/02/2022 [facility] Work Phone: Comment on above: Ordered: 09/02/2022 Hemoglobin A1c/Hemoglobin.total in Blood HEMOGLOBIN A1C (POC) Lab Routine Diabetes mellitus due to underlying condition, uncontrolled, with hyperglycemia (HCC) Ordered: 08/11/2021 [facility] Work Phone: Comment on above: Ordered: 08/11/2021 Hemoglobin A1c/Hemoglobin.total in Blood HEMOGLOBIN A1C (POC) Lab Routine Diabetes mellitus due to underlying condition, uncontrolled, with hyperglycemia (HCC) Ordered: 09/20/2021 [facility] Work Phone: Comment on above: Ordered: 09/20/2021 Hemoglobin A1c/Hemoglobin.total in Blood HEMOGLOBIN A1C (POC) Lab Routine Diabetes mellitus due to underlying condition, uncontrolled, with hyperglycemia (HCC) Ordered: 10/05/2021 [facility] Work Phone: Comment on above: Ordered: 10/05/2021 End: 02-13-2021 HEP C AB IA W/CONF SCRN HEP C AB IA W/CONF SCRN Lab Routine Special screening examination for viral disease 1 Occurrences starting 02/14/2020 until 02/13/2021 [facility] Comment on above: 1 Occurrences starting 02/14/2020 until 02/13/2021 HGBA1C B/O (AG) HGBA1C B/O (AG) Lab Routine Diabetes mellitus due to underlying condition, uncontrolled, with hyperglycemia (HCC) Ordered: 01/03/2022 [facility] Work Phone: Comment on above: Ordered: 01/03/2022 HGBA1C B/O (AG) HGBA1C B/O (AG) Lab Routine Diabetes mellitus due to underlying condition, uncontrolled, with hyperglycemia (HCC) Ordered: 03/01/2022 [facility] Work Phone: Comment on above: Ordered: 03/01/2022 HGBA1C B/O (AG) HGBA1C B/O (AG) Lab Routine Diabetes mellitus due to underlying condition, uncontrolled, with hyperglycemia (HCC) Ordered: 05/18/2022 [facility] Work Phone: Comment on above: Ordered: 05/18/2022 HGBA1C B/O (AG) HGBA1C B/O (AG) Lab Routine Diabetes mellitus due to underlying condition, uncontrolled, with hyperglycemia (HCC) Ordered: 06/29/2022 [facility] Work Phone: Comment on above: Ordered: 06/29/2022 End: 02-13-2021 HIV 1+2 Ab IA Ql HIV 1 2 COMBO(AG/AB),WITH REFLEX TO DIFFERENTIATION Lab Routine Screening for HIV (human immunodeficiency virus) 1 Occurrences starting 02/14/2020 until 02/13/2021 [facility] Comment on above: 1 Occurrences starting 02/14/2020 until 02/13/2021 INJECTION HIP JOINT (AG) INJECTI ON HIP JOINT (AG) Radiology Routine Primary osteoarthritis of left hip Ordered: 01/23/2023 [facility] Work Phone: Comment on above: Ordered: 01/23/2023 End: 02-13-2021 LIPID PANEL BASIC LIPID PANEL BASIC Lab Routine Routine physical examination 1 Occurrences starting 02/14/2020 until 02/13/2021 [facility] Comment on above: 1 Occurrences starting 02/14/2020 until 02/13/2021 End: 04-27-2021 LIPID PANEL BASIC LIPID PANEL BASIC Lab Routine Mixed hyperlipidemia 1 Occurrences starting 04/27/2020 until 04/27/2021 [facility] Comment on above: 1 Occurrences starting 04/27/2020 until 04/27/2021 End: 07-31-2023 MRI ARTHROGRAM HIP LEFT MRI ARTHROGRAM HIP LEFT Radiology Routine Pain in hip Chronic left hip pain 1 Occurrences starting 07/01/2022 until 07/31/2023 [facility] Work Phone: Comment on above: 1 Occurrences starting 07/01/2022 until 07/31/2023 End: 08-30-2022 MRI ARTHROGRAM HIP LEFT [facility] Work Phone: Comment on above: 1 Occurrences starting 08/30/2022 until 08/30/2022 Mri pelvis w/o & w/contrast material MRI PELVIS WO/W IVCON Radiology Routine Malignant neoplasm of rectosigmoid junction (HCC) 08/09/2021 5:06 PM EDT [facility] Work Phone: End: 10-02-2023 Mri [...] present 1 Occurrences starting 09/02/2022 until 10/02/2023 [facility] Work Phone: Comment on above: 1 Occurrences starting 09/02/2022 until 10/02/2023 End: 11-12-2023 NM CARDIAC PERF STRESS/PHARM NM CARDIAC PERF STRESS/PHARM Radiology Routine Precordial pain OTT (dyspnea on exertion) Primary hypertension 1 Occurrences starting 10/13/2022 until 11/12/2023 [facility] Work Phone: Comment on above: 1 Occurrences starting 10/13/2022 until 11/12/2023 PAP TITRATION PSG (C PAP, BIPAP, ASV) PAP TITRATION PSG (CPAP, BIPAP, ASV) Procedures Routine MEKHI (obstructive sleep apnea) Ordered: 10/05/2021 [facility] Work Phone: Comment on above: Ordered: 10/05/2021 PAP TITRATION PSG (C PAP, BIPAP, ASV) PAP TITRATION PSG (CPAP, BIPAP, ASV) Procedures Routine MEKHI (obstructive sleep apnea) Ordered: 05/18/2022 [facility] Work Phone: Comment on above: Ordered: 05/18/2022 Prostate specific Ag [Mass/Vol] PSA/PROSTSPECAG DIAG Lab Routine Routine physical examination 1 Occurrences starting 02/14/2020 [facility] Comment on above: 1 Occurrences starting 02/14/2020 PT ED PATIENT INFORMATION PT ED PATIENT INFORMATION Other 05/30/2020 [facility] PT PLAN OF CARE CERTIFICATION PT PLAN OF CARE CERTIFICATION Procedures Routine Chronic bilateral low back pain, unspecified whether sciatica present Weakness Decreased mobility and endurance Ordered: 05/05/2020 [facility] Comment on above: Ordered: 05/05/2020 Radex hip unilateral with pelvis 1 view XR HIP 1V UNIL W PELVIS WHEN PERFORMED (AG) Radiology Routine Pain in left hip Ordered: 10/09/2022 [facility] Work Phone: Comment on above: Ordered: 10/09/2022 Radex shoulder compl ete minimum 2 views XR SHOULDER GENERAL 3V OR MORE AP/TRUE AP/OTHER LT Radiology Routine Left shoulder pain, unspecified chronicity Ordered: 04/27/2020 [facility] Comment on above: Ordered: 04/27/2020 End: 03-15-2021 Radex spine lumbosacral 2/3 views XR LUMBAR GENERAL 3V AP/LAT/L5-S1 Radiology Routine Chronic bilateral low back pain with sciatica, sciatica laterality unspecified 1 Occurrences starting 02/14/2020 until 03/15/2021 [facility] Comment on above: 1 Occurrences starting 02/14/2020 until 03/15/2021 End: 09-03-2023 Screening colonoscopy COLONOSCOPY SCREENING Endoscopy Routine History of rectal cancer 1 Occurrences starting 09/02/2022 until 09/03/2023 [facility] Work Phone: Comment on above: 1 Occurrences starting 09/02/2022 until 09/03/2023 End: 02-19-2025 Screening colonoscopy COLONOSCOPY SCREENING Endoscopy Routine History of rectal cancer 1 Occurrences starting 02/20/2024 until 02/19/2025 [facility] Work Phone: Comment on above: [...] Upon Ordering for 1 Occurrences starting 05/13/2024 [facility] Work Phone: Comment on above: Release Upon Ordering for 1 Occurrences starting 05/13/2024 End: 02-13-2021 TSH Qn TSH BLD Lab Routine Routine physical examination 1 Occurrences starting 02/14/2020 until 02/13/2021 [facility] Comment on above: 1 Occurrences starting 02/14/2020 until 02/13/2021 Urinalysis complete panel - Urine URINALYSIS, WITH MICROSCOPIC Lab Routine Dysuria 1 Occurrences starting 04/27/2020 [facility] Comment on above: 1 Occurrences starting 04/27/2020 VITAMIN D 25 HYDROXY VITAMIN D 2 5 HYDROXY Lab Routine Routine physical examination 1 Occurrences starting 02/14/2020 [facility] Comment on above: 1 Occurrences starting 02/14/2020 End: 07-31-2023 XR INJ ARTHROGRAM HIP LEFT XR INJ ARTHROGRAM HIP LEFT Radiology Routine Pain in hip Chronic left hip pain 1 Occurrences starting 07/01/2022 until 07/31/2023 [facility] Work Phone: Comment on above: 1 Occurrences starting 07/01/2022 until 07/31/2023 End: 08-30-2022 XR INJ ARTHROGRAM HIP LEFT XR INJ ARTHROGRAM HIP LEFT Radiology Routine Pain in hip Chronic left hip pain 1 Occurrences starting 08/30/2022 until 08/30/2022 [facility] Work Phone: Comment on above: 1 Occurrences starting 08/30/2022 until 08/30/2022 [facility] Immunizations Immunization Date Immunization Notes Care Provider Fidencio [facility] 08-12-2022 pneumococcal polysaccharide vaccine, 23 valent Belgica Vega DO Work Phone: [facility] 03-01-2022 influenza, injectabl e, quadrivalent, contains preservative Belgica Vega DO Work Phone: [facility] 03-01-2022 influenza virus vacc ine, unspecified formulation Belgica Je DO Work Phone: [facility] 01-08-2021 influenza, injectabl e, quadrivalent, contains preservative Janievega Pickett SAW EDGE FUSER CIRCULAR.PARTS REPRESENTATIVE Work Phone: [facility] 10-19-2020 tetanus toxoid, redu anna diphtheria toxoid, and acellular pertussis vaccine, adsorbed Janie iNeves SAW EDGE FUSER CIRCULAR.PARTS REPRESENTATIVE Work Phone: [facility] 10-19-2020 zoster vaccine recombinant Janie Pickett APRN.PARTS REPRESENTATIVE Work Phone: [facility] 03-23-2020 influenza, injectabl e, quadrivalent, contains preservative Belgica Javier [facility] 03-23-2020 zoster vaccine recombinant Belgicaluca Herrera [facility] Payers Date Payer Category Payer Self-pay 2023 Medicare (Managed Care) [facility] DUAL COMPLETE HMO POS SNP [id number] 2023 Medicare HMO [employer] DUAL COMPLET E [id number] 2022 Unknown [id number] 2021 Medicaid [id number] 2020 Medicaid [id number] 2020 Medicaid [id number] 2020 Medicare [id number] 2020 Medicare [id number] 2020 Medicare [id number] Unknown [id number] Unknown [id number] Unknown [id number] Unknown [id number] Unknown [id number] Social History Date Type Detail Facility Start: 02-14-2020 End: 07-10-2024 Tobacco smoking status NHIS Former smoker [facility] Start: 02-14-2020 End: 07-10-2024 Tobacco use and exposure Never used [facility] Start: 02-14-2020 End: 07-10-2024 Alcohol intake Ex-drinker (finding) [facility] Start: 1960 Sex Assigned At Not on file [facility] Start: 08-10-2020 End: 01-20-2022 Exposure to SARS-CoV-2 (event) Not sure [facility] Start: 04-03-1973 End: 04-03-2010 History of tobacco use Current smoker [facility] Start: 04-03-1973 End: 04-03-2010 History of tobacco use Cigarette Smoker [facility] Start: 04-19-2021 End: 11-26-2024 Cigarettes smoked current (pack per day) - Reported 1 [facility] Start: 09-23-2020 End: 01-18-2022 History SDOH Alcohol Frequency 1 [facility] Start: 09-23-2020 End: 12-28-2021 History SDOH Social Connections Phone 5 [facility] Start: 09-23-2020 End: 12-28-2021 History SDOH Social Connections Membership 2 [facility] Start: 09-23-2020 End: 12-28-2021 History SDOH Social Connections Living 7 [facility] Start: 09-23-2020 History SDOH Physical Activity DPW 0 [facility] Start: 09-23-2020 History SDOH Stress 4 [facility] Start: 09-23-2020 Education 9 [facility] Start: 04-12-2021 End: 01-03-2022 Tobacco Comment Smokes [place] [facility] Start: 1960 Sex Assigned At Male [facility] Work Phone: Start: 01-18-2022 History SDOH Housing Unable to Pay 3 [facility] Start: 12-28-2021 End: 11-26-2024 Social connection and isolation panel [facility] Do you belong to any clubs or organizations such as gnosticist groups, unions, fraternal or athletic groups, or school groups? Yes [facility] Are you now , , , , never or living with a partner? Never [facility] How often to you hav e a drink containing alcohol? Never [facility] Average Number of Drinks Not on file [facility] Work Phone: Do you feel stress - tense, restless, nervous, or anxious, or unable to sleep at night because your mind is troubled all the time - these days [OSQ] Very much [facility] (I/We) worried wheth er (my/our) food would run out before (I/we) got money to buy more. DK or Refused [facility] Work Phone: Start: 09-04-2020 Gender identity Identifies as male gender (finding) [facility] Work Phone: Start: 09-04-2020 Sexual orientation Heterosexual (finding) [facility] Work Phone: Has the [employer] threatened to shut off services in your home in past 12Mo No [facility] How hard is it for y ou to pay for the very basics like food, housing, medical care, and heating Somewhat hard [facility] (I/We) worried wheth er (my/our) food would run out before (I/we) got money to buy more. Sometimes true [facility] (I/We) worried wheth er (my/our) food would run out before (I/we) got money to buy more. Never true [facility] [employer] Start: 08-01-2023 Sex Male (finding) [employer] Procedure Code Equipment Code Equipment Origin al Text Equipment Identifier Dates [id number] Start: 09-22-2020 End: 05-18-2022 Comment on above: [...] Iol 1 Piece Foldable Uv Blue - [id number] Start: 08-18-2022 Lens Acrysof Ultrasert +23 Diopter Acrylic Iol 1 Piece Foldable Uv Blue - [id number] Start: 09-08-2022 Catheter Glidepa th 14.5fr Straight Polyurethane 28cm 23cm Hemodialysis Kit - [id number] Start: 07-18-2024 Goals Date Patient Goal Desired [...] 10/20/2023 2:19 PM Ester Elaine RN No [facility] 10-20-2023 Are you blind, or do you have serious difficulty seeing, even when wearing glasses No 10/20/2023 2:19 PM Ester Elaine RN No [facility] 10-20-2023 Do you have serious difficulty walking or climbing stairs Yes 10/20/2023 2:19 PM Ester Elaine RN Yes [facility] 10-20-2023 Do you have difficul ty dressing or bathing Yes 10/20/2023 2:19 PM Ester Elaine, LEATHA Yes [facility] 10-20-2023 Because of a physica l, mental, or emotional condition, do you have difficulty doing errands alone such as visiting a physician's office or shopping Yes 10/20/2023 2:19 PM Ester Elaine RN Yes [facility] Mental Status Date Assessment Result Facility 10-20-2023 Because of a physica l, mental, or emotional condition, do you have serious difficulty concentrating, remembering, or making decisions Yes 10/20/2023 2:19 PM Ester Elaine RN Yes [facility] Clinical Notes 05-05-2020 to 11-29-2024 Care Coordination - Jayro Mayen - 11/29/2024 2:17 PM EDTCare Coordination - Jayro Mcgills - 11/29/2024 2:17 PM EDTCare Coordination - Jayro Mayen - 11/29/2024 2:11 PM EDT Note Date & Type Note Facility 11-29-2024 Progress note Formatting of t his note might be different from the original. Confirmed pickup time of 330PM by transport [employer] JOSHUA DAVIS [employer] at phone number [phone]. Location of facility drop off is [facility] TO [facility]. Facility notified via Careport, TCC notified on secure chat. [facility] 11-29-2024 Miscellaneous Notes Confirmed pickup time of 330PM by transport [employer]xxana [employer] [place] at phone number [phone]. Location of facility drop off is [facility] BACK TO [facility]. Facility notified via Careport, TCC notified on secure chat. Transport requested 330 in [employer]. Awaiting time confirmation. Discharge med list transmitted to [facility]. [facility]. Await review and response regarding ability to accept. TCC notified. Care Management Progress Note Short Medical why still here: shaking/ tremors. 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 Nephrology and endocrinology following. Plan for hemodialysis today. Planned Discharge Disposition: [facility] ([facility]) insurance auth approved for his return (he is also a bedhold). Barriers/Today we still Wait: Administering IV medications, Clinical stability, Symptomatic control Length of Stay (Days): 4 GMLOS: 4.6 carbon capture power plant manager to follow for discharge planning. 2:07 PM UPDATE: DC order noted Tasked ELECTRICAL MECHANIC to send discharge paperwork and MAR to [facility]. Tasked her to arrange transportation via cot. Spoke with patient regarding transportation plan. Confirmed pickup time is 330. Discussed patient may have a co-pay for ambulance depending on their individual insurance coverage. Advised patient to call number on back of insurance card with questions or concerns. Updated bedside RN and community marketing manager. Updated patient's sister per his request. Sent updated notes to return back to [facility] via [facility]port per TCC request. Await review and response regarding ability to accept. TCC notified. Care Management Progress Note Short Medical why still here: persistent tremors/ shaking. Awaiting neuro consult. On IV vancomycin. Hemodialysis on Monday. Planned Discharge Disposition: [facility] ([facility], bedhold but request precert) Barriers/Today we still Wait: Administering IV medications, Clinical stability, Symptomatic control, Watch Dial Maker recommendations (comment) Length of Stay (Days): 3 GMLOS: 3.7 carbon capture power plant manager to follow for discharge planning. Referral placed to return back to [facility] via Careport per TCC request. Await review and response regarding ability to accept. TCC notified. Care Managment Initial Assessment Date: 11/27/2024 Patient Name: José Manuel Ashton : 1960 Patient Information Source of Information: Patient Cognition/Language: WFL - Within Functional Limits Permission given to speak with patient human resources representative/caregiver as indicated: Confirmation of Payer with patient/family: Yes Payer Name: [employer] MEDICARE/[facility] DUAL COMPLETE : No Confirmation of Primary Care Physician: Primary Caregiver: If assistance needed, confirmed caregiver ready, willing and able to care for patient at discharge: Confirmed with: Living Arrangements Current Residence: Number of Floors Number of Entry Steps: Bed/Bath Levels: Facility: Nursing Facility Skilled Facility Name: [facility] Plan to Return: Yes Lives with: Alone [...] Services: Dialysis Type: Hemo Dialysis Provider Name/Location: [facility] M-F Durable Medical Equipment: Wheelchair (standard or power), Cane Patient's Goal/Discharge Plan Patient expects to be discharged to: [facility] Discharge Planning Actions: Continue to follow, [facility] referral indicated Patient's Choice Rights and [employer] and Collaborative Relationships Disclosed as Indicated for Post-Acute Care: NA Interdisciplinary Team Engagement: Social Work Referral for: Additional Information: Spoke with patient at their bedside. Introduced self and role. Discussed discharge planning. Patient has health insurance and prescription coverage. Patient states he lives at [facility] and plans to return. Tasked ELECTRICAL MECHANIC [facility] Will await response. He receives hemodialysis there Monday through Monday. He will need ambulance transport with cot upon discharge. manager insurance will continue to follow for any discharge planning needs. 2:46 PM UPDATE: Patient is a bedhold at [facility]. They would like to skill him for his return but he may return regardless when medically ready. They are submitting precert today. SW call to [facility] coverage line. Per [facility] coverage line, he was denied Assisted Living due to usp assisted care placement at [facility]. TCC notified. Care Management Progress Note Short Medical why still here: admitted for chills, received one dose of vancomycin. Blood cultures pending. Monitoring renal labs. On hemodialysis M-F at care home facility. Nephrology and endocrinology following. Planned Discharge Disposition: [facility] (patient came from [facility], anticipate return but will confirm with patient and facility) Barriers/Today we still Wait: Administering IV medications, Clinical stability, Symptomatic control, Watch Dial Maker recommendations (comment) Length of Stay (Days): 2 GMLOS: No GMLOS Documented documented in this encounter [facility] 11-29-2024 Progress note Formatting of t his note might be different from the original. Transport requested 330 in [facility]. Awaiting time confirmation. [facility] 11-29-2024 Progress note Formatting of t his note might be different from the original. Discharge med list transmitted to RETURN BACK TO [facility] via [facility] per TCC request. [facility] 11-29-2024 Note Discharge Summary José Manuel [...] were stopped and he was discharged to [facility]. SIGNIFICANT DIAGNOSTIC STUDIES: CXR CONSULTANTS: Nephrology, Endocrinology, Neurology RECOMMENDED NEXT STEPS: Discharged to [facility]. Follow up final blood cultures. Physical Exam: [...] Your Medications These medications were sent to [facility] [address] [place] [id number] Hours: Monday to Monday 10 am to [...] Complexity: follow up within 7-14 calendar days (23727) [] Severe Complexity: follow up within 7 calendar days (65392) FOLLOW UP TESTING, PENDING RESULTS OR REFERRALS AT TRANSITIONAL CARE VISIT: [] Yes [] No PENDING STUDIES: Final blood cultures DISPOSITION: SNF FACILITY/HOME CARE AGENCY NAME: [facility] INSTRUCTIONS TO MA/SW: Please call patient on day after discharge (must document patient contacted within 2 business days of discharge). FOLLOW UP QUESTIONS FOR MA/SW: 1. Did you get medications filled and taking them as instructed from discharge? 2. Are you following your discharge instructions from your hospital st (more content not included)... [facility] 11-29-2024 History of Present illness Narrative Department of Internal Medicine Division of Endocrinology, Diabetes, & Metabolism Endocrinology Note Patient Name: José Manuel Ashton : 1960 AGE: 63 y.o. [facility] A Admission Date: 11/25/2024 Visit Date: 11/29/2024 Reason for Endocrine Consult: DM/Pt on U300 insulin Provider/Team Requesting Consult: Dr. Hills PCP: Brittaney Garcia MD [employer] Practitioner: Yes [facility] ASSESSMENT: Type 2 diabetes mellitus with hyperglycemia, with usp insulin use Lethargy and chills HTN DM2 [...] low dose sliding scale Outpt Follow Up-- [facility] Endocrinology SUBJECTIVE/HPI: CHIEF COMPLAINT: Chief Complaint Patient presents with Altered Mental Status Pt presents to ED via EMS from [facility] for responding slowly and indicates he is cold. José Manuel Ashton is a 63 yo male who presented to ED from [facility] Dialysis center with Tremor, chills and delayed [...] Concerned he will receive pain meds at assisted BG controlled no change in doses 11/28/2024 [...] in bed Patient reports he resides at [facility] Patient not sure of insulin doses at [facility] - Does not give his [...] found for: CHOLHDLRATIO No results found for: [id number] Lab Results Component Value Date TSH 3.04 11/28/2024 Radiology reportsas per the Radiologist Radiology: POCT glucose meter Result Date: 11/25/2024 Performed by: Felicita Daly[address] [address] CLIA ID: [id number] POCT glucose meter Result Date: 11/25/2024 Performed by: Felicita Daly[address] [address] CLIA ID: [id number] POCT glucose meter Result Date: 11/25/2024 Performed by: Felicita Daly[address] [address] CLIA ID: [id number] ECG 12 lead Sinus rhythm Low voltage, [...] original note were not included. OCCUPATIONAL THERAPY [facility]'s Name/MRN: José Manuel Ashton ([id number]) Date: 11/29/2024 Pt intended for OT treatment [...] muscle mass loss Fluid Accumulation: Mild Generalized Blast Hole Driller Strength: Not Performed Nutrition Assessment: Pt is a 63 y/o male admitted to [facility] with complaints of Chills, weakness, and lethargy, no c/o CP, cough, nausea, vomiting. Respiratory panel wnl, COVID negative. Pt has ESRD on HD- on a Monday through Monday schedule at [facility]. Pt reports having a fair to decreased [...] On: Kcal/kg Weight Used for Energy Requirements: [place] Weight for Energy Calculation (kg): 75 kg Total Energy Requirements (kcals/day): 3067-9799 kcals (25-30 kcals/kg) Weight Used for Protein Requirements: [place] Weight in Kg Used for Protein Requirements: [...] lb) (07/10/24) % Weight Change (Calculated): 4.3 [place] Body Weight (lbs) (Calculated): 166 lbs [place] Body Weight (Kg) (Calculated): 75 kg % [place] Body Weight (Calculated): 159.6 % BMI (kg/m2) [...] Oral Nutrition Supplement Arlin Juárez RD Contact: *[phone] or via Secure Chat Images from the original note were not included. OCCUPATIONAL THERAPY [facility] Treatment Note Name/MRN: José Manuel Ashton ([id number]) Date of : 1960 Age: 63 y.o. Room/Bed: [facility] A Visit #: 1 out of 7 Discharge Recommendation: [facility] Facility Equipment Needed: No Assessment Patient was [...] Ashton : 1960 AGE: 63 y.o. Room/Bed: [facility] A Admission Date: 11/25/2024 Visit Date: 11/28/2024 Reason for Endocrine Consult: DM/Pt on U300 insulin Provider/Team Requesting Consult: Dr. Hills PCP: Brittaney Garcia MD [employer] Practitioner: Yes [facility] ASSESSMENT: Type 2 diabetes mellitus with hyperglycemia, with rn long term care insulin use Lethargy and chills HTN DM2 [...] low dose sliding scale Outpt Follow Up-- [facility] Endocrinology SUBJECTIVE/HPI: CHIEF COMPLAINT: Chief Complaint Patient presents with Altered Mental Status Pt presents to ED via EMS from [facility] for responding slowly and indicates he is cold. José Manuel Ashton is a 63 yo male who presented to ED from [facility] Dialysis center with Tremor, chills and delayed [...] in bed Patient reports he resides at [facility] Patient not sure of insulin doses at [facility] - Does not give his [...] found for: CHOLHDLRATIO No results found for: [id number] Lab Results Component Value Date TSH 3.04 11/28/2024 Radiology reportsas per the Radiologist Radiology: POCT glucose meter Result Date: 11/25/2024 Performed by: Felicita Daly [address] [place] [id number] CLIA ID: [id number] POCT glucose meter Result Date: 11/25/2024 Performed by: Felicita Daly [address] [place] [address] CLIA ID: [id number] POCT glucose meter Result Date: 11/25/2024 Performed by: Felicita Daly [address] [place] [address] CLIA ID: [id number] ECG 12 lead Sinus rhythm Low voltage, [...] Patient Name: JOSÉ MANUEL ASHTON : 1960 [facility]#: [id number] Exam Date/Time: 11/25/2024 12:25 Procedure: XR CHEST [...] Janell Waldrop Mobile Relation: Sister Preferred language: [address] Monkey needed? No Flori Hills MD Division of [...] []PD [] CrCl ml/min (if TARYN, no ELECTRO OPTICS ENGINEER) Infectious Diagnosis: sepsis (target level = 15-20 mg/L) Antimicrobials: Patient recently received an antibiotic (last 12 hours) Date/Time Action Medication Dose Rate 11/27/24 6092 New Bag vancomycin (Vancocin) 750 mg in [...] 9:13 AM Leida Harris RPh (available on [employer]) Images from the original note were not [...] []PD [] CrCl ml/min (if TARYN, no ELECTRO OPTICS ENGINEER) Infectious Diagnosis: sepsis (target level = 15-20 [...] 1:51 PM Leida Harris RPh (available on [employer]) Hospitalist Progress Note 11/27/2024 Subjective: Admit Date: [...] Janell Waldrop Mobile Relation: Sister Preferred language: [address] Monkey needed? No Flori Hills MD Division of Hospitalist Medicine [facility] [1] Past Medical History: Diagnosis [...] ondansetron, oxyCODONE, polyethylene glycol (PEG) 3350 [4] [facility] Progress Note Subjective/ 63 y.o. year old male who we are seeing in consultation for ESRD. Interval History Admitted for weakness, chills, and lethargy Resting in bed, easily arousable Reports generalized pain BP stable Adequate PO intake ROS Otherwise negative No interval changes to [facility]. All interval notes/labs/imaging reviewed. Objective/ Vitals: 11/26/24 [...] to call with any questions or concerns. [facility] Office This note is [...] the above assessment and plan with the SOLUTIONS ANALYST. I agree with above note. HD today. Sees Dr. Abiel dudley outpatient. We cover his patients here. Nutrition rescreen completed. Pt referred to RD for ESRD patient on HD. Department of Internal Medicine Division of Endocrinology, Diabetes, & Metabolism Endocrinology Note Patient Name: José Manuel Ashton : 1960 AGE: 63 y.o. Room/Bed: [facility]/B4-466 A Admission Date: 11/25/2024 Visit Date: 11/27/2024 Reason for Endocrine Consult: DM/Pt on U300 insulin Provider/Team Requesting Consult: Dr. Hills PCP: Brittaney Garcia MD [employer] Practitioner: Yes [facility] ASSESSMENT: Type 2 diabetes mellitus with hyperglycemia, with rn long term care insulin use Lethargy and chills HTN DM2 [...] on day of discharge Outpt Follow Up-- [facility] Endocrinology SUBJECTIVE/HPI: CHIEF COMPLAINT: Chief Complaint Patient presents with Altered Mental Status Pt presents to ED via EMS from [facility] for responding slowly and indicates he is cold. José Manuel Ashton is a 63 yo male who presented to ED from [facility] Dialysis center with Tremor, chills and delayed [...] in bed Patient reports he resides at [facility] Patient not sure of insulin doses at [facility] - Does not give his [...] Intake/Output Summary (Last 24 hours) at 11/27/2024 2331 Last data filed at 11/26/2024 2336 Gross [...] found for: CHOLHDLRATIO No results found for: [id number] No results found for: TSH, J2SMKAD, R7AJJPA, THYROIDAB Radiology reportsas per the Radiologist Radiology: POCT glucose meter Result Date: 11/25/2024 Performed by: Felicita Daly [address] [place] [address] CLIA ID: [id number] POCT glucose meter Result Date: 11/25/2024 Performed by: Felicita Daly [address] [place] [address] CLIA ID: [id number] POCT glucose meter Result Date: 11/25/2024 Performed by: Felicita Daly [address] [place] [address] CLIA ID: [id number] ECG 12 lead Sinus rhythm Low voltage, [...] original note were not included. PHYSICAL THERAPY [facility] Initial Evaluation Name/MRN: José Manuel Ashton ([id number]) Evaluation Date: 11/26/2024 Date of : 1960 Admission Date: 11/25/2024 12:06 PM Age: 63 y.o. Room/Bed: B4-466/B4-466 A Discharge Recommendation: [facility] Equipment Needed: No Assessment IMPRESSION: Pt [...] Raw Score (No Stairs) : 11 [facility] Score: Static standing (1 or more [...] of Care supervision is transferred to a [facility] Physical Therapist. Goals and/or treatment [...] 1:20 PM Prasanth Springer RPh (available on [employer]) Images from the original note were not included. OCCUPATIONAL THERAPY [facility] Initial Evaluation Name/MRN: José Manuel Ashton ([id number]) Evaluation Date: 11/26/2024 Date of : 1960 Admission Date: 11/25/2024 12:06 PM Age: 63 y.o. Room/Bed: Discharge Recommendation: [facility] Equipment Needed: No Assessment IMPRESSION: Pt [...] functional mobility. Recommend return to SNF at [place] with OT. Admitting Diagnosis: chills Performance Deficits [...] of Care supervision is transferred to a [facility] Occupational Therapist. Goals and/or treatment [...] Janell Waldrop Mobile Relation: Sister Preferred language: [address] Monkey needed? No Flori Hills MD Division of Hospitalist Medicine Acute care [facility] [1] Past Medical History: Diagnosis [...] (PEG) 3350 [4] documented in this encounter [facility] 11-29-2024 Hospital Discharge instructions Christie Orozco RN - 11/29/2024 1:39 PM EDT Images from the original note were not included. Continuity of Care Form Patient Name: José Manuel Ashton : 1960 Admit date: 11/25/2024 Discharge date: 11/29/24 Code Status Order: Full Code Advance Directives: N Admitting Physician: Flori Hills MD PCP: Brittaney Garcia MD Discharging Nurse: Christie ZHANG Discharging Hospital Unit/Room#: B4-973/B4-212 A Discharging Unit Emergency Contact: Extended Emergency Contact Information Primary Emergency Contact: Janell Waldrop Mobile Relation: Sister Preferred language: [address] Monkey needed? No Past Surgical History: History reviewed. [...] Minimal assistance Toileting Minimal assistance Feeding Independent Planner Internship Total assistance Med Delivery yes Wound Care [...] Status Date: 11/25/24 Discharging to Facility/ Agency [place] [employer] [address] [place] [address] Dialysis Facility (if applicable) Name: Address: Dialysis Schedule: Phone: Fax: Rn Angiography/Clother In signature: ICIAN SECTION Name: José Manuel Ashton Prognosis: good Condition at Discharge: stable Rehab Potential (if transferring to Rehab): good Recommended Labs or Other Treatments After Discharge: BMP/CBC on 12/04/2024 The individual is being admitted to a nursing facility directly from an [facility] or a unit of a the [facility] that is not operated by or licensed by [facility] under section 5119.14 or 5160-3-15.1 5 The individual requires the level of services provided by a nursing facility for the condition for which he or she was treated in the hospital and, Physician Certification: I certify the above information and transfer of José Manuel Ashton is necessary for the continuing treatment of the diagnosis listed and that he requires care home facility for less than 30 days. Update Admission H&P: No change in H&P PHYSICIAN SIGNATURE: documented in this encounter [facility] 11-29-2024 Note [facility] Progress Note Subjective/ 63 y.o. year old male who we are seeing in consultation for ESRD. Interval History Admitted for weakness, chills, and lethargy Sleeping during HD, wakes to stimuli Reports generalized pain with tremors/twitching Denies SOB, on RA BP stable Adequate PO intake ROS Otherwise negative No interval changes to [facility]. All interval notes/labs/imaging reviewed. Objective/ Vitals: 11/29/24 [...] to call with any questions or concerns. [facility] Office This note is [...] OR ondansetron, oxyCODONE, polyethylene glycol (PEG) 3350 [facility] 11-29-2024 Nurse Note 2.4L removed with tx, UF goal adjusted for BP Tolerated well Patient Name: José Manuel Ashton Patient : 1960 Acct: [id number] Date of Admission: 11/25/2024 Room/Bed: [facility]/Y7[facility] A Code Status: Full Code [...] Regular Other (Comment) None (Room air) Diminished [place] Warm;Dry Good Soft;Rounded Active Generalized Non-pitting 11/29/24 1346 Alert (0) x4 Regular Other (Comment) None (Room air) -- [place] Warm;Dry Good Soft;Rounded Active Generalized Non-pitting Labs [...] - Before each treatment: Dialysis Machine No.: [id number] RO Machine Number: [id number] Dialyzer Lot No.: [id number] Tubing Lot Number: [id number] [employer] Secure: Yes Venous Parameters Set: Yes Arterial Parameters Set: Yes NS Bag: Yes Saline Line Double Clamped: Yes Dialyzer: Nipro Prime Volume (mL): 200 mL RO Machine Number: [id number] RO Machine Log Sheet Completed: Yes Machine Alarm Self Test: Completed, Passed (11/29/24931) Air Foam Detector: Tested, Proper Function, pH Reading Extracorporeal Circuit Tested for Integrity: Yes Machine Conductivity: 13.4 Manual Conductivity: 13.6 Manual Ph: 7.2 Bleach Test (Neg): Yes Bath Temperature: 36 C (96.8 F) Conductivity Meter Serial #: [id number] Machine Functioning Alarm Free? Yes Dialysis Bath: K+ (Potassium): 2 Ca+ (Calcium): 2.5 Na+ (Sodium): 137 HCO3 (Bicarb): 35 Bicarbonate Concentrate Lot No.: [id number] Acid Concentrate Lot No.: [id number] Chlorine Testing - Before each treatment and [...] Patient Active Problem List Diagnosis Chills [3] [facility] 11-29-2024 Nurse Note 2.4L removed with tx, UF goal adjusted for BP Tolerated well Patient Name: José Manuel Ashton Patient : 1960 Acct: [id number] Date of Admission: 11/25/2024 Room/Bed: [facility] A Code Status: Full Code Allergies: [...] Regular Other (Comment) None (Room air) Diminished [place] Warm;Dry Good Soft;Rounded Active Generalized Non-pitting 11/29/24 1346 Alert (0) x4 Regular Other (Comment) None (Room air) -- [place] Warm;Dry Good Soft;Rounded Active Generalized Non-pitting Labs [...] - Before each treatment: Dialysis Machine No.: [id number] RO Machine Number: [id number] Dialyzer Lot No.: [id number] Tubing Lot Number: [id number] [employer] Secure: Yes Venous Parameters Set: Yes Arterial Parameters Set: Yes NS Bag: Yes Saline Line Double Clamped: Yes Dialyzer: Nipro Prime Volume (mL): 200 mL RO Machine Number: [id number] RO Machine Log Sheet Completed: Yes Machine Alarm Self Test: Completed, Passed (11/29/24931) Air Foam Detector: Tested, Proper Function, pH Reading Extracorporeal Circuit Tested for Integrity: Yes Machine Conductivity: 13.4 Manual Conductivity: 13.6 Manual Ph: 7.2 Bleach Test (Neg): Yes Bath Temperature: 36 C (96.8 F) Conductivity Meter Serial #: [id number] Machine Functioning Alarm Free? Yes Dialysis Bath: K+ (Potassium): 2 Ca+ (Calcium): 2.5 Na+ (Sodium): 137 HCO3 (Bicarb): 35 Bicarbonate Concentrate Lot No.: [id number] Acid Concentrate Lot No.: [id number] Chlorine Testing - Before each treatment and [...] José Manuel Ashton Patient : 1960 Acct: [id number] Date of Admission: 11/25/2024 [facility] A Code Status: Full Code Allergies: Allergies[1] [...] (0) 4 Regular None (Room air) Diminished [place] Warm;Dry -- -- -- Labs Lab Results [...] - Before each treatment: Dialysis Machine No.: [id number] RO Machine Number: [id number] Dialyzer Lot No.: [id number] Tubing Lot Number: [id number] [employer] Secure: Yes Venous Parameters Set: Yes Arterial Parameters Set: Yes NS Bag: Yes Saline Line Double Clamped: Yes Dialyzer: Nipro Prime Volume (mL): 200 mL RO Machine Number: [id number] RO Machine Log Sheet Completed: Yes Conductivity Meter Serial #: [id number] Machine Functioning Alarm Free? Yes Dialysis Bath: [...] Diagnosis Chills [3] documented in this encounter [facility] 11-29-2024 Progress note Formatting of t his note might be different from the original. Sent updated notes to [facility] via [employer] per [facility] request. Await review and response regarding ability to accept. TCC notified. [facility] 11-29-2024 Note Care Management Prog ress Note Short Medical why still here: shaking/ tremors. 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 Nephrology and endocrinology following. Plan for hemodialysis today. Planned Discharge Disposition: [facility] Facility ([facility]) insurance auth approved for his return (he is also a bedhold). Barriers/Today we still Wait: Administering IV medications, Clinical stability, Symptomatic control Length of Stay (Days): 4 GMLOS: 4.6 carbon capture power plant manager to follow for discharge planning. 2:07 PM UPDATE: DC order noted Tasked ELECTRICAL MECHANIC to send discharge paperwork and MAR to [facility]. Tasked her to arrange transportation via cot. Spoke with patient regarding transportation plan. Confirmed pickup time is 330. Discussed patient may have a co-pay for ambulance depending on their individual insurance coverage. Advised patient to call number on back of insurance card with questions or concerns. Updated bedside RN and community marketing manager. Updated patient's sister per his request. [facility] 11-29-2024 Progress note Formatting of t his note might be different from the original. Care Management Progress Note Short Medical why still here: shaking/ tremors. 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 Nephrology and endocrinology following. Plan for hemodialysis today. Planned Discharge Disposition: [facility] Facility ([facility]) insurance auth approved for his return (he is also a bedhold). Barriers/Today we still Wait: Administering IV medications, Clinical stability, Symptomatic control Length of Stay (Days): 4 GMLOS: 4.6 carbon capture power plant manager to follow for discharge planning. 2:07 PM UPDATE: DC order noted Tasked ELECTRICAL MECHANIC to send discharge paperwork and MAR to [facility]. Tasked her to arrange transportation via cot. Spoke with patient regarding transportation plan. Confirmed pickup time is 330. Discussed patient may have a co-pay for ambulance depending on their individual insurance coverage. Advised patient to call number on back of insurance card with questions or concerns. Updated bedside RN and community marketing manager. Updated patient's sister per his request. [facility] 11-28-2024 Consult note Associated Order (s): IP CONSULT TO NEUROLOGY NEUROLOGY INITIAL CONSULTATION DATE/TIME: NOVEMBER 282024 [] PATIENT's NAME: POLI Cartagena DATE OF : [birth year] AGE: 63 GENDER: Male ROOM: [facility]/A PHYSICIAN REQUESTING CONSULT: Dr. Hills NEUROLOGIST: Lauri Kilgore MD DATE OF ADMISSION: 11-25-24 REASON FOR NEUROLOGY CONSULTATION: Persistent tremors/twitching HISTORY OF PRESENT ILLNESS ED HISTORY OF PRESENT ILLINESS José Manuel Ashton is a 63-year-old man who was admitted to the Emergency Department at [facility] on 11-25-24 . He presented with [...] neurological intervention is needed at this time. INVESTIGATION DIVISION SERGEANT During this comprehensive evaluation, I dedicated a significant amount of time, 75 minutes, to thoroughly reviewing all current medical records and relevant diagnostic tests. This thoroughness was essential for me to engage in a idgz-rm-rzso interview and conduct a focused neurological examination, [...] 's approval, I created this report using Mal[employer] recognition system, Integrated [employer]Ch[employer] Systems, and [employer]-police pilot. I conducted an accurate and prompt media executive and a thorough editorial review. Acknowledging that [...] and cooperation. Lauri Kilgore MD Comprehensive Neurologist [phone] [employer] Phone: 11-28-2024 Consult note Associated Order (s): [...] was admitted to the Emergency Department at [facility] on 11-25-24 . He presented with [...] neurological intervention is needed at this time. INVESTIGATION DIVISION SERGEANT During this comprehensive evaluation, I dedicated a significant amount of time, 75 minutes, to thoroughly reviewing all current medical records and relevant diagnostic tests. This thoroughness was essential for me to engage in a [id number]-tw-[id number] interview and conduct a focused neurological examination, [...] 's approval, I created this report using EVOFEM voice recognition system, Bob Jurado, and [employer]-police pilot. I conducted an accurate and prompt media executive and a thorough editorial review. Acknowledging that [...] and cooperation. Lauri Kilgore MD Comprehensive Neurologist [phone] Associated Order(s): IP CONSULT TO NEPHROLOGY [facility] Consultation Note Reason for [...] hemodialysis. Patient follows with Dr. Dudley at [facility]. He receives HD at his facility M-F [...] in contact with his dialysis nurse at [facility] and she confirmed his DW had recently [...] concerns regarding my recommendations as outlined above. [facility] Office [1] No family history on file. [2] Social History Socioeconomic History Marital status: Single Social Drivers of Health Financial Resource Strain: Medium Risk (05/24/2023) Received from [facility] Overall Financial Resource Strain (CARDIA) Difficulty [...] Physical Activity: Insufficiently Active (12/28/2021) Received from [facility] Exercise Vital Sign Days of Exercise per Week: 7 days Minutes of Exercise per Session: 20 min Stress: Stress Concern Present (12/28/2021) Received from [facility] [place] [employer] - Occupational Stress Questionnaire Feeling of Stress : Very much Social Connections: Socially Isolated (12/28/2021) Received from [facility] Social Connection and Isolation Panel [NHANES] Frequency of Communication with Friends and Family: Once a week Frequency of Social Gatherings with Friends and Family: Never Attends Sikhism Services: Never Active Member of Clubs or [...] the above assessment and plan with the SOLUTIONS ANALYST. I agree with above note. HD tomorrow. [...] Dr. Hills PCP: Brittaney Garcia MD Outpt [employer] Practitioner: Yes [facility] ASSESSMENT: Type 2 diabetes mellitus with hyperglycemia, with rn long term care insulin use PLAN: Start Lantus 10 units [...] medium dose sliding scale Outpt Follow Up-- [facility] Endocrinology SUBJECTIVE/HPI: CHIEF COMPLAINT: Chief Complaint Patient presents with Altered Mental Status Pt presents to ED via EMS from [facility] for responding slowly and indicates he is cold. José Manuel Ashton is a 63 yo male who presented to ED from [facility] Dialysis center with Tremor, chills and delayed [...] in bed Patient reports he resides at [facility] Patient not sure of insulin doses at [facility] - Does not give his [...] found for: CHOLHDLRATIO No results found for: [id number] No results found for: TSH, L7VDTHZ, K1VTDMO, THYROIDAB Radiology reportsas per the Radiologist Radiology: POCT glucose meter Result Date: 11/25/2024 Performed by: Felicita Daly [address] [place] [id number] CLIA ID: [id number] POCT glucose meter Result Date: 11/25/2024 Performed by: Felicita Daly [address] [place] [id number] CLIA ID: [id number] POCT glucose meter Result Date: 11/25/2024 Performed by: Felicita Daly [address] [place] [address] CLIA ID: [id number] ECG 12 lead Sinus rhythm Low voltage, [...] [facility] Name[facility]OS[facility] MANUEL [facility] 1960 [id number] Exam Date/Time: 11/25/2024 12:25 Procedure: XR CHEST [...] [x] CrCl 22.9 ml/min (if TARYN, no ELECTRO OPTICS ENGINEER) Consulted By: Dr. Adames Vancomycin Level: []Trough [...] 2:57 PM Analilia Solares PharmD (available on [employer]) documented in this encounter [facility] 11-28-2024 Note NEUROLOGY INITIAL CO NSULTATION DATE/TIME: NOVEMBER [id number] [] PATIENT's NAME: POLI Cartagena DATE OF : [birth year] AGE: 63 GENDER: Male ROOM: [facility]/A PHYSICIAN REQUESTING CONSULT: Dr. Hills NEUROLOGIST: Lauri Kilgore MD DATE OF ADMISSION: 11-25-24 REASON FOR NEUROLOGY CONSULTATION: Persistent tremors/twitching HISTORY OF PRESENT ILLNESS ED HISTORY OF PRESENT ILLINESS José Manuel Ashton is a 63-year-old man who was admitted to the Emergency Department at [facility] on 11-25-24 . 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 [facility] 11-28-2024 Note [facility] Progress [...] to call with any questions or concerns. [facility] This note is [...] OR ondansetron, oxyCODONE, polyethylene glycol (PEG) 3350 [facility] 11-28-2024 Progress note Formatting of t his note might be different from the original. Sent updated notes to return back to [facility] [place] via [facility] per [facility] request. Await review and response regarding ability to accept. [facility] notified. [facility] 11-28-2024 Note Hospitalist Progress Note 11/28/2024 Subjective: Admit Date: 11/25/2024 PCP: Brittaney Garcia MD Room#: X9-497/H0-196 A Interval History: No cp, sob, cough, [...] Extended Emergency Contact Information Primary Emergency Contact: Janlel Waldrop Mobile Relation: Sister Preferred language: [address] Monkey needed? 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 [facility] 11-28-2024 Note Pharmacy Managed Van comycin Dosing [...] []PD [] CrCl ml/min (if TARYN, no ELECTRO OPTICS ENGINEER) Infectious Diagnosis: sepsis (target level = 15-20 [...] 9:13 AM Leida Harris RPh (available on [employer]) [facility] 11-28-2024 Note Care Management Prog ress Note Short Medical why still here: persistent tremors/ shaking. Awaiting neuro consult. On IV vancomycin. Hemodialysis on Monday. Planned Discharge Disposition: [facility] ([facility], bedhold but request precert) Barriers/Today we still Wait: Administering IV medications, Clinical stability, Symptomatic control, Watch Dial Maker recommendations (comment) Length of Stay (Days): 3 GMLOS: 3.7 carbon capture power plant manager to follow for discharge planning. [facility] 11-28-2024 Progress note Formatting of t his note might be different from the original. Care Management Progress Note Short Medical why still here: persistent tremors/ shaking. Awaiting neuro consult. On IV vancomycin. Hemodialysis on Monday. Planned Discharge Disposition: [facility] ([facility], bedhold but request precert) Barriers/Today we still Wait: Administering IV medications, Clinical stability, Symptomatic control, Watch Dial Maker recommendations (comment) Length of Stay (Days): 3 GMLOS: 3.7 carbon capture power plant manager to follow for discharge planning. [facility] 11-27-2024 Nurse Note Patient Name: José Manuel Ashton Patient : 1960 Acct: [id number] Date of Admission: 11/25/2024 Room[facility]: [facility] A Code Status: Full Code Allergies: [...] (0) 4 Regular None (Room air) Diminished [place] Warm;Dry -- -- -- Labs Lab Results [...] - Before each treatment: Dialysis Machine No.: [id number] RO Machine Number: [id number] Dialyzer Lot No.: [id number] Tubing Lot Number: [id number] All Connections Secure: Yes Venous Parameters Set: Yes Arterial Parameters Set: Yes NS Bag: Yes Saline Line Double Clamped: Yes Dialyzer: Nipro Prime Volume (mL): 200 mL RO Machine Number: [id number] RO Machine Log Sheet Completed: Yes Conductivity Meter Serial #: [id number] Machine Functioning Alarm Free? Yes Dialysis Bath: [...] Active Problem List Diagnosis Chills [3] T [facility] 11-27-2024 Note Referral placed to r eturn back to [facility] via [facility] per [facility] request. Await review and response regarding ability to accept. [facility] notified. [facility] 11-27-2024 Progress note Formatting of t his note might be different from the original. Referral placed to return back to [facility] via [facility] per [facility] request. Await review and response regarding ability to accept. [facility] notified. T [facility] 11-27-2024 Progress note Formatting of t his note might be different from the original. Care Managment Initial Assessment Date: 11/27/2024 Patient Name: José Manuel Ashton : 1960 Patient Information Source of Information: Patient Cognition/Language: WFL - Within Functional Limits Permission given to speak with patient human resources representative/caregiver as indicated: Confirmation of Payer with patient/family: Yes Payer Name: [employer] MEDICARE/[facility] DUAL COMPLETE [place]: No Confirmation of Primary Care Physician: Primary Caregiver: If assistance needed, confirmed caregiver ready, willing and able to care for patient at discharge: Confirmed with: Living Arrangements Current Residence: Number of Floors Number of Entry Steps: Bed/Bath Levels: Facility: Nursing Facility Skilled Facility Name: [facility] Plan to Return: Yes Lives with: Alone [...] Services: Dialysis Type: Hemo Dialysis Provider Name/Location: [facility] M-F Durable Medical Equipment: Wheelchair (standard or power), Cane Patient's Goal/Discharge Plan Patient expects to be discharged to: [facility] Discharge Planning Actions: Continue to follow, [facility] referral indicated Patient's Choice Rights and [employer] and Collaborative Relationships Disclosed as Indicated for Post-Acute Care: NA Interdisciplinary Team Engagement: Social Work Referral for: Additional Information: Spoke with patient at their bedside. Introduced self and role. Discussed discharge planning. Patient has health insurance and prescription coverage. Patient states he lives at [facility] and plans to return. Tasked ELECTRICAL MECHANIC to send referral in [facility]. Will await response. He receives hemodialysis there Monday through Monday. He will need ambulance transport with cot upon discharge. manager insurance will continue to follow for any discharge planning needs. 2:46 PM UPDATE: Patient is a bedhold at [facility]. They would like to skill him for his return but he may return regardless when medically ready. They are submitting precert today. [facility] 11-27-2024 Note Pharmacy Managed Van comycin [...] []PD [] CrCl ml/min (if TARYN, no ELECTRO OPTICS ENGINEER) Infectious Diagnosis: sepsis (target level = 15-20 [...] Date: 11/27/24 Time: 1:51 PM Leida Harris [facility] (available on [employer]) [facility] 11-27-2024 Note Hospitalist Progress Note 11/27/2024 Subjective: Admit Date: 11/25/2024 PCP: Brittaney Garcia MD Room#: B4-994/B4-474 A Interval History: Having arm twitching and [...] Janell Waldrop Mobile Relation: Sister Preferred language: [address] Monkey needed? No Flori Hills MD Division of [...] 2 diabetes mellitus (more content not included)... [facility] 11-27-2024 Progress note Formatting of t his note might be different from the original. SW call to [employer] coverage line. Per [facility] coverage line, he was denied Assisted Living due to usp assisted care placement at [facility]. [facility] notified. [facility] 11-27-2024 Note Care Management Prog ress Note Short Medical why still here: admitted for chills, received one dose of vancomycin. Blood cultures pending. Monitoring renal labs. On hemodialysis M-F at care home facility. Nephrology and endocrinology following. Planned Discharge Disposition: [facility] (patient came from [facility], anticipate return but will confirm with patient and facility) Barriers/Today we still Wait: Administering IV medications, Clinical stability, Symptomatic control, Watch Dial Maker recommendations (comment) Length of Stay (Days): 2 GMLOS: No GMLOS Documented [facility] 11-27-2024 Progress note Formatting of t his note might be different from the original. Care Management Progress Note Short Medical why still here: admitted for chills, received one dose of vancomycin. Blood cultures pending. Monitoring renal labs. On hemodialysis M-F at care home facility. Nephrology and endocrinology following. Planned Discharge Disposition: [facility] (patient came from [facility], anticipate return but will confirm with patient and facility) Barriers/Today we still Wait: Administering IV medications, Clinical stability, Symptomatic control, Watch Dial Maker recommendations (comment) Length of Stay (Days): 2 GMLOS: No GMLOS Documented T [facility] 11-26-2024 Consult note Associated Order (s): [...] hemodialysis. Patient follows with Dr. Dudley at [facility]. He receives HD at his facility M- [...] in contact with his dialysis nurse at [facility] and she confirmed his DW had recently [...] concerns regarding my recommendations as outlined above. [facility] [1] No family history on file. [2] Social History Socioeconomic History Marital status: Single Social Drivers of Health Financial Resource Strain: Medium Risk (05/24/2023) Received from [facility] Overall Financial Resource Strain (CARDIA) Difficulty [...] Physical Activity: Insufficiently Active (12/28/2021) Received from [facility] Exercise Vital Sign Days of Exercise per Week: 7 days Minutes of Exercise per Session: 20 min Stress: Stress Concern Present (12/28/2021) Received from [facility] [place] [employer] - Occupational Stress Questionnaire Feeling of Stress : Very much Social Connections: Socially Isolated (12/28/2021) Received from [facility] Social Connection and Isolation Panel [NHANES] Frequency of Communication with Friends and Family: Once a week Frequency of Social Gatherings with Friends and Family: Never Attends Sikhism Services: Never Active Member of Clubs or [...] the above assessment and plan with the SOLUTIONS ANALYST. I agree with above note. HD tomorrow. Patient established with Dr Abiel Dudley outpatient. We cover his patients here. [facility] 11-26-[address] [facility] Initial Evaluation Name/MRN: José Manuel Ashton ([id number]) Evaluation Date: 11/26/2024 Date of : 1960 Admission Date: 11/25/2024 12:06 PM Age: 63 y.o. Room/Bed: B4-466/B4-466 A Discharge Recommendation: [facility] Equipment Needed: No Assessment IMPRESSION: Pt [...] Raw Score (No Stairs) : 11 [facility] Score: Static standing (1 or more [...] to improve stren (more content not included)... [facility] 11-26-2024 Note Pharmacy Managed Van comycin Dosing [...] Date: 11/26/24 Time: 1:20 PM Prasanth Springer [facility] (available on [employer]) [facility] 11-26-[address] [facility] Initial Evaluation Name/MRN: José Manuel Ashton ([id number]) Evaluation Date: 11/26/2024 Date of : 1960 Admission Date: 11/25/2024 12:06 PM Age: 63 y.o. Room/Bed: Discharge Recommendation: [facility] Equipment Needed: No Assessment IMPRESSION: Pt [...] functional mobility. Recommend return to SNF at [place] with OT. Admitting Diagnosis: chills Performance Deficits [...] Problems Encounter Prob (more content not included)... [facility] 11-26-2024 Note Hospitalist Progress Note 11/26/2024 Subjective: [...] Janell Waldrop Mobile Relation: Sister Preferred language: [address] Monkey needed? No Flori Hills MD Division of Hospitalist Medicine [facility] [1] Past Medical History: Diagnosis [...] Once vancomycin (Vancoci (more content not included)... [facility] 11-26-2024 Consult note Associated Order (s): IP CONSULT TO ENDOCRINOLOGY Department of Internal Medicine Division of Endocrinology, Diabetes, & Metabolism Endocrinology Note Patient Name: José Manuel Ashton : 1960 AGE: 63 y.o. Room/Bed: Admission Date: 11/25/2024 Visit Date: 11/26/2024 Reason for Endocrine Consult: DM/Pt on U300 insulin Provider/Team Requesting Consult: Dr. Hills PCP: Brittaney Garcia MD Outpt [employer] Practitioner: Yes [facility] ASSESSMENT: Type 2 diabetes mellitus with hyperglycemia, with usp insulin use PLAN: Start Lantus 10 units [...] medium dose sliding scale Outpt Follow Up-- [facility] Endocrinology SUBJECTIVE/HPI: CHIEF COMPLAINT: Chief Complaint Patient presents with Altered Mental Status Pt presents to ED via EMS from [facility] for responding slowly and indicates he is cold. José Manuel Ashton is a 63 yo male who presented to ED from [facility] Dialysis center with Tremor, chills and delayed [...] in bed Patient reports he resides at [facility] Patient not sure of insulin doses at [facility] - Does not give his own injections. Reports blood sugars are checked before meals but not sure what blood sugar levels are. Carb controlled diet Patient reports tremors, chills Feels unsteady on feet. PT was stopped at [facility] per patient. Glucose Date/Time Value [...] found for: CHOLHDLRATIO No results found for: [id number] No results found for: TSH, A6GEEKC, S6WSBWB, THYROIDAB Radiology reportsas per the Radiologist Radiology: POCT glucose meter Result Date: 11/25/2024 Performed by: Felicita Daly[address] [address] CLIA ID: [id number] POCT glucose meter Result Date: 11/25/2024 Performed by: Felicita Daly[address] [address] CLIA ID: [id number] POCT glucose meter Result Date: 11/25/2024 Performed by: Felicita Daly, [address] [place] [id number] CLIA ID: [id number] ECG 12 lead Sinus rhythm Low voltage, [...] Hatch MD at 11/27/2024 11:51 AM EDT [facility] 11-25-2024 History and physical note Attending [...] n/v, f/c. He normally is admitted to [facility]. Will admit for further evaluation [...] Resource Strain: Medium Risk (05/24/2023) Received from [facility] Overall Financial Resource Strain (CARDIA) Difficulty of Paying Living Expenses: Somewhat hard Food Insecurity: No Food Insecurity (07/11/2024) Received from [facility] Hunger Vital Sign Worried About Running Out of Food in the Last Year: Never true Ran Out of Food in the Last Year: Never true Transportation Needs: No Transportation Needs (07/11/2024) Received from [facility] PRAPARE - Transportation Lack of Transportation (Medical): No Lack of Transportation (Non-Medical): No Physical Activity: Insufficiently Active (12/28/2021) Received from [facility] Exercise Vital Sign Days of Exercise per Week: 7 days Minutes of Exercise per Session: 20 min Stress: Stress Concern Present (12/28/2021) Received from [facility] [place] [employer] - Occupational Stress Questionnaire Feeling of Stress : Very much Social Connections: Socially Isolated (12/28/2021) Received from [facility] Social Connection and Isolation Panel [NHANES] Frequency of Communication with Friends and Family: Once a week Frequency of Social Gatherings with Friends and Family: Never Attends Sikhism Services: Never Active Member of Clubs or Organizations: Yes Attends Club or Organization Meetings: Never Marital Status: Never Intimate Partner Violence: Not on file Housing Stability: Unknown (07/11/2024) Received from [facility] Housing Stability Vital Sign Unable to [...] Janell Waldrop Mobile Relation: Sister Preferred language: [address] Monkey needed? No Flori Hills MD Division of Hospitalist Medicine [facility] [1] No family history on file. [...] on file. [3] Allergies Allergen Reactions Penicillins [facility] 11-25-2024 Note Attending History an d [...] n/v, f/c. He normally is admitted to [facility]. Will admit for further evaluation [...] Resource Strain: Medium Risk (05/24/2023) Received from [facility] Overall Financial Resource Strain (CARDIA) Difficulty of Paying Living Expenses: Somewhat hard Food Insecurity: No Food Insecurity (07/11/2024) Received from [facility] Hunger Vital Sign Worried About Running Out of Food in the Last Year: Never true Ran Out of Food in the Last Year: Never true Transportation Needs: No Transportation Needs (07/11/2024) Received from [facility] PRAPARE - Transportation Lack of Transportation (Medical): No Lack of Transportation (Non-Medical): No Physical Activity: Insufficiently Active (12/28/2021) Received from [facility] Exercise Vital Sign Days of Exercise per Week: 7 days Minutes of Exercise per Session: 20 min Stress: Stress Concern Present (12/28/2021) Received from [facility] [place] [employer] Health - Occupational Stress Questionnaire Feeling of Stress : Very much Social Connections: Socially Isolated (12/28/2021) Received from [facility] Social Connection and Isolation Panel [NHANES] Frequency of Communication with Friends and Family: Once a week Frequency of Social Gatherings with Friends and Family: Never Attends Sikhism Services: Never Active Member of Clubs or Organizations: Yes Attends Club or Organization Meetings: Never Marital Status: Never Intimate Partner Violence: Not on file Housing Stability: Unknown (07/11/2024) Received from [facility] Housing Stability Vital Sign Unable to [...] PLT 220 BMP: (more content not included)... [facility] 11-25-2024 History and physical note Attending History [...] n/v, f/c. He normally is admitted to [facility]. Will admit for further evaluation [...] Resource Strain: Medium Risk (05/24/2023) Received from [facility] Overall Financial Resource Strain (CARDIA) Difficulty of Paying Living Expenses: Somewhat hard Food Insecurity: No Food Insecurity (07/11/2024) Received from [facility] Hunger Vital Sign Worried About Running Out of Food in the Last Year: Never true Ran Out of Food in the Last Year: Never true Transportation Needs: No Transportation Needs (07/11/2024) Received from [facility] PRAPARE - Transportation Lack of Transportation (Medical): No Lack of Transportation (Non-Medical): No Physical Activity: Insufficiently Active (12/28/2021) Received from [facility] Exercise Vital Sign Days of Exercise per Week: 7 days Minutes of Exercise per Session: 20 min Stress: Stress Concern Present (12/28/2021) Received from [facility] [place] [employer] of Occupational Health - Occupational Stress Questionnaire Feeling of Stress : Very much Social Connections: Socially Isolated (12/28/2021) Received from [facility] Social Connection and Isolation Panel [NHANES] Frequency of Communication with Friends and Family: Once a week Frequency of Social Gatherings with Friends and Family: Never Attends Sikhism Services: Never Active Member of Clubs or Organizations: Yes Attends Club or Organization Meetings: Never Marital Status: Never Intimate Partner Violence: Not on file Housing Stability: Unknown (07/11/2024) Received from [facility] Housing Stability Vital Sign Unable to [...] Janell Waldrop Mobile Relation: Sister Preferred language: [place] Road Monkey needed? No Flori Hills MD Division of Hospitalist Medicine [facility] [1] No family history on file. [...] Allergen Reactions Penicillins documented in this encounter [facility] 11-25-2024 Consult note Formatting of th [...] [x] CrCl 22.9 ml/min (if TARYN, no ELECTRO OPTICS ENGINEER) Consulted By: Dr. Adames Vancomycin Level: []Trough [...] 2:57 PM Analilia Solares PharmD (available on [employer]) [facility] 11-25-2024 Emergency department Note Pt refused pain meds, not my dose at assisted per pt [facility] 11-25-2024 Emergency department Note Pt refused pain meds, not my dose at assisted per pt EMERGENCY DEPARTMENT ENCOUNTER Pt Name: José Manuel Ashton Birthdate 1960 Date of evaluation: 11/25/2024 ED Provider: Omid Adames MD CHIEF COMPLAINT Chief Complaint Patient presents with Altered Mental Status Pt presents to ED via EMS from [facility] for responding slowly and indicates he is [...] In compliance with this authorization, please visit www.fda.gov/media/186743/download or www.fda.gov/media/780496/download to access the applicable information sheets. MAGNESIUM [...] to that. I did message the on-call marketing operations associate who is comfortable with the plan. Hospitalist [...] Resource Strain: Medium Risk (05/24/2023) Received from [facility] Overall Financial Resource Strain (CARDIA) Difficulty of Paying Living Expenses: Somewhat hard Food Insecurity: No Food Insecurity (07/11/2024) Received from [facility] Hunger Vital Sign Worried About Running Out of Food in the Last Year: Never true Ran Out of Food in the Last Year: Never true Transportation Needs: No Transportation Needs (07/11/2024) Received from [facility] PRAPARE - Transportation Lack of Transportation (Medical): No Lack of Transportation (Non-Medical): No Physical Activity: Insufficiently Active (12/28/2021) Received from [facility] Exercise Vital Sign Days of Exercise per Week: 7 days Minutes of Exercise per Session: 20 min Stress: Stress Concern Present (12/28/2021) Received from [facility] [employer] [employer] [employer] [facility] - Occupational Stress Questionnaire Feeling of Stress : Very much Social Connections: Socially Isolated (12/28/2021) Received from [facility] Social Connection and Isolation Panel [NHANES] Frequency of Communication with Friends and Family: Once a week Frequency of Social Gatherings with Friends and Family: Never Attends Sikhism Services: Never Active Member of Clubs or Organizations: Yes Attends Club or Organization Meetings: Never Marital Status: Never Housing Stability: Unknown (07/11/2024) Received from [facility] Housing Stability Vital Sign Unable to Pay for Housing in the Last Year: No Homeless in the Last Year: No Omid Adames MD 11/25/24 1430 Pt received dialysis today documented in this encounter [facility] 11-25-2024 Emergency department Triage note Pt received dialysis today [facility] 11-25-2024 Physician Emergency department Note EMERGENCY DEPARTMENT ENCOUNTER Pt Name: José Manuel Ashton Birthdate 1960 Date of evaluation: 11/25/2024 ED Provider: Omid Adames MD CHIEF COMPLAINT Chief Complaint Patient presents with Altered Mental Status Pt presents to ED via EMS from [facility] for responding slowly and indicates he is [...] In compliance with this authorization, please visit www.fda.gov/media/879053/download or www.fda.gov/media/634734/download to access the applicable information sheets. MAGNESIUM [...] to that. I did message the on-call marketing operations associate who is comfortable with the plan. Hospitalist [...] Resource Strain: Medium Risk (05/24/2023) Received from [facility] Overall Financial Resource Strain (CARDIA) Difficulty of Paying Living Expenses: Somewhat hard Food Insecurity: No Food Insecurity (07/11/2024) Received from [facility] Hunger Vital Sign Worried About Running Out of Food in the Last Year: Never true Ran Out of Food in the Last Year: Never true Transportation Needs: No Transportation Needs (07/11/2024) Received from [facility] PRAPARE - Transportation Lack of Transportation (Medical): No Lack of Transportation (Non-Medical): No Physical Activity: Insufficiently Active (12/28/2021) Received from [facility] Exercise Vital Sign Days of Exercise per Week: 7 days Minutes of Exercise per Session: 20 min Stress: Stress Concern Present (12/28/2021) Received from [facility] [place] [employer] [employer] [facility] - Occupational Stress Questionnaire Feeling of Stress : Very much Social Connections: Socially Isolated (12/28/2021) Received from [facility] Social Connection and Isolation Panel [NHANES] Frequency of Communication with Friends and Family: Once a week Frequency of Social Gatherings with Friends and Family: Never Attends Sikhism Services: Never Active Member of Clubs or Organizations: Yes Attends Club or Organization Meetings: Never Marital Status: Never Housing Stability: Unknown (07/11/2024) Received from [facility] Housing Stability Vital Sign Unable to Pay for Housing in the Last Year: No Homeless in the Last Year: No Omid Adames MD 11/25/24 1430 [facility] 07-24-2024 Telephone encounter Note Hi, Pt d/c to a SNF. Referral discarded. Thank you, Claudia Chow LPN [facility] Work Phone: 07-24-2024 Miscellaneous Notes Hi, Pt d/c to a SNF. Referral discarded. Thank you, Claudia Chow LPN documented in this encounter [facility] 07-23-2024 Note [facility] 07-22-2024 Note [facility] 07-22-2024 Note [facility] 07-21-2024 Note [facility] 07-20-2024 Note [facility] 07-20-2024 Note [facility] 07-20-2024 Note [facility] 07-19-2024 Note [facility] 07-19-2024 Note [facility] 07-18-2024 Note [facility] 07-17-2024 Note [facility] 07-16-2024 Note [facility] 07-15-2024 Note [facility] 07-14-2024 Note [facility] 07-13-2024 Note [facility] 07-12-2024 Note [facility] 07-12-2024 Telephone encounter Note Bunny [...] care clinicians may also obtain orders from [facility] Virtualist Providers Thank you and we would be happy to answer any questions. Judith Cat LPN 07/12/2024 10:23 AM [facility] Work Phone: 07-12-2024 Miscellaneous Notes Bunny [...] care clinicians may also obtain orders from [facility] Virtualist Providers Thank you and we would be happy to answer any questions. Judith Cat LPN 07/12/2024 10:23 AM documented in this encounter [facility] 07-10-2024 History of Present illness Narrative Chief complaint : Subjective : José Manuel Ashton is a 63 year old male seen for CKD follow up. SUBJECTIVE: José Manuel Ashton is a 63 year old White male with past medical history significant for : Type 2 diabetes, hypertension, hyperlipidemia, depression, [place] [facility] [place] with polyp, lumbar radiculopathy, history [...] quittin.2 Smokeless tobacco: Never Tobacco comments: Smokes [place] Vaping Use Vaping status: Never Used Substance [...] Review Reviewed by Sebas Ocampo MD, Ph.D ([id number]) Comment (Serum Prot Electro) A reflex test [...] 3,715.7 Albumin/Creat Ratio <30 mg/g 5,008 (H) [place] Free, Serum 3.3 - 19.4 mg/L 57.0 (H) Lambda Free, Serum 5.7 - 26.3 mg/L 36.1 (H) K/L Ratio, Serum 0.26 - 1.65 1.58 DNA Antibody <=200 IU/mL 16 DNA Antibody Qualitative Interpretation Negative Negative MPA Result No M protein is identified. No M protein is identified. Staff Review (MPA) Reviewed by Sebas Ocampo MD, Ph.D ([id number]) C3 86 - 166 mg/dL 147 C4 [...] months (on 10/09/2024). documented in this encounter [facility] 06-28-2024 Telephone encounter Note S: Patient spoke with CAC nurse regarding abnormal labs results being called by the [facility]. Hx: DM B: Onset of symptoms/concern labs were drawn from the [place] office at his appointment on 06/27/24 having an urgent notification at 15:54 was seen in the office for a 2-month follow up A: Bun 79.9 CR 4.3 Potassium 7.1 R: Paging Dr. Scott at 3:55 No further needs at this time. Reason for Disposition Lab or radiology calling with test results Protocols used: PCP Call - No [id number] [facility] 06-28-2024 Miscellaneous Notes S: Patient spoke with CAC nurse regarding abnormal labs results being called by the [facility]. Hx: DM B: Onset of symptoms/concern labs were drawn from the [place] office at his appointment on 06/27/24 having an urgent notification at 15:54 was seen in the office for a 2-month follow up A: Bun 79.9 CR 4.3 Potassium 7.1 R: Paging Dr. Scott at 3:55 No further needs at this time. Reason for Disposition Lab or radiology calling with test results Protocols used: PCP Call - No [id number] documented in this encounter [facility] 05-20-2024 Telephone encounter Note Spoke to the patient's sister and relayed the message and she stated she would inform her brother because she takes all his calls. A 3 year Recall has been placed in [place]. Brittany Roberson [facility] 05-20-2024 Telephone encounter Note ----- Message from Artem Ahmadi MD sent at 05/16/2024 8:39 AM EST ----- His pathology results are back and show a number of small polyps and we should plan for next colonoscopy in 3 years. Artem Ahmadi MD May 16, 2024 8:39 AM [facility] 05-20-2024 Miscellaneous Notes Spoke to the patient's sister and relayed the message and she stated she would inform her brother because she takes all his calls. A 3 year Recall has been placed in [facility]. Brittany Roberson ----- Message from Artem Ahmadi [...] 2024 8:39 AM documented in this encounter [facility] 05-16-2024 Progress note Formatting of t his note might be different from the original. His pathology results are back and show a number of small polyps and we should plan for next colonoscopy in 3 years. Artem Ahmadi MD May 16, 2024 8:39 AM [facility] Work Phone: 05-14-2024 Telephone encounter Note A 3 year Recall has been placed in [facility]. Called the patient and left him a voice message that a 3 Year Recall has been placed and he will receive a letter to call to schedule when he is due. Brittany Roberson [facility] 05-14-2024 Miscellaneous Notes A 3 year Recall has been placed in [facility]. Called the patient and left him a voice message that a 3 Year Recall has been placed and he will receive a letter to call to schedule when he is due. Brittany Roberson documented in this encounter [facility] 05-13-2024 Hospital Discharge instructions Artem Ahmadi [...] hours. Eat high-fiber foods or use an hgdh-rev-[id number] fiber supplement, if needed. Rest and avoid [...] are getting worse. documented in this encounter [facility] 05-13-2024 History and physical note HISTORY [...] quittin.1 Smokeless tobacco: Never Tobacco comments: Smokes [place] Vaping Use Vaping status: Never Used Substance [...] which included preparing to see the patient, [id number] patient care, completing clinical documentation, obtaining and/or reviewing separately obtained history, and performing a medically appropriate examination. Instructions Given to Patient: Patient given verbal preop instructions and voices comprehension and compliance. SIGNATURE: Rebecca Corey APRN.CNP PATIENT NAME: José Manuel Ashton DATE: May 13, 2024 TIME: 10:56 AM PAGER/CONTACT #: [facility] 05-13-2024 History and physical note HISTORY [...] quittin.1 Smokeless tobacco: Never Tobacco comments: Smokes [place] Vaping Use Vaping status: Never Used Substance [...] which included preparing to see the patient, [id number] patient care, completing clinical documentation, obtaining and/or reviewing separately obtained history, and performing a medically appropriate examination. Instructions Given to Patient: Patient given verbal preop instructions and voices comprehension and compliance. SIGNATURE: Rebecca Corey APRN.CNP PATIENT NAME: José Manuel Ashton DATE: May 13, 2024 TIME: 10:56 AM PAGER/CONTACT #: documented in this encounter [facility] 04-27-2024 Telephone encounter Note S: Patient's sister (Janell) spoke with [facility] nurse regarding medication problem / prior [...] call the pharmacy Return call back to [facility] with an update. Recommend calling the pharmacy in 1 hour to see if medication is ready. Any issues, please give the office a call back. Sister verbalizes understanding. Reason for Disposition [1] Caller has URGENT medicine question about med that PCP or specialist prescribed AND [2] triager unable to answer question Protocols used: Medication Question [id number] [facility] 04-27-2024 Miscellaneous Notes S: Patient's sister (Janell) spoke with [facility] nurse regarding medication problem / prior [...] call the pharmacy Return call back to [facility] with an update. Recommend calling the pharmacy in 1 hour to see if medication is ready. Any issues, please give the office a call back. Sister verbalizes understanding. Reason for Disposition [1] Caller has URGENT medicine question about med that PCP or specialist prescribed AND [2] triager unable to answer question Protocols used: Medication Question [id number] documented in this encounter [facility] 04-26-[address] Dudley [...] a prescription to his local pharmacy for [facility]. We will continue to try and contact patient. [facility] 04-26-[address] Dudley received [...] a prescription to his local pharmacy for [place]. We will continue to try and contact patient. documented in this encounter [facility] 02-20-2024 Telephone encounter Note Surgery Checklist Type: COLONOSCOPY Admission Type: outpatient Anesthesia: MAC Date: 05/13/24 Arrival Time: 12:30 PM Surgery Time: 1:30 PM Location: [facility] Prep mailed to patient. Brittany Roberson [facility] 02-20-2024 Telephone encounter Note ----- Message from Brittany Dowlign sent at 12/22/2023 11:46 AM EDT ----- Regarding: Schedule Colonoscopy Call and Schedule a Colonoscopy. [facility] 02-20-2024 Miscellaneous Notes Surgery Checklist Type: COLONOSCOPY Admission Type: outpatient Anesthesia: MAC Date: 05/13/24 Arrival Time: 12:30 PM Surgery Time: 1:30 PM Location: [facility] Prep mailed to patient. Brittany Roberson ----- Message from Brittany Dowling sent at 12/22/2023 11:46 AM EDT ----- Regarding: Schedule Colonoscopy Call and Schedule a Colonoscopy. documented in this encounter [facility] 01-24-2024 History of Present illness Narrative Chief complaint : Subjective : José Manuel Ashton is a 63 year old male seen for CKD follow up. SUBJECTIVE: José Manuel Ashton is a 63 year old White male with past medical history significant for : Type 2 diabetes, hypertension, hyperlipidemia, depression, colon to [facility] [place] with polyp, lumbar radiculopathy, history [...] quittin.8 Smokeless tobacco: Never Tobacco comments: Smokes [place] Vaping Use Vaping status: Never Used Substance [...] Review Reviewed by Sebas Ocampo MD, Ph.D ([id number]) Comment (Serum Prot Electro) A reflex test [...] 3,715.7 Albumin/Creat Ratio <30 mg/g 5,008 (H) [place] Free, Serum 3.3 - 19.4 mg/L 57.0 (H) Lambda Free, Serum 5.7 - 26.3 mg/L 36.1 (H) K/L Ratio, Serum 0.26 - 1.65 1.58 DNA Antibody <=200 IU/mL 16 DNA Antibody Qualitative Interpretation Negative Negative MPA Result No M protein is identified. No M protein is identified. Staff Review (MPA) Reviewed by Sebas Ocampo MD, Ph.D ([id number]) C3 86 - 166 mg/dL 147 C4 [...] months (on 07/24/2024). documented in this encounter [facility] 12-29-2023 History of Present illness Narrative [...] h/o steroid response post-op Plan: Monitor JANELL [phone] (sister, contact) (H14.3475) Early dry stage nonexudative age-related macular degeneration of both eyes Comment: Mottling, no fluid Plan: Monitor RTC 9 months diabetic check I have confirmed and edited as necessary the relevant ophthalmic history, ROS, and the neuro exam findings as obtained by others. I have seen and examined this patient. I have discussed the case and the management of this patient's care with the Resident/Fellow/Hand Mounter, if applicable. I also have reviewed and agree with the assessment and plan as stated above and agree with all of its relevant components. Renetta Meza MD December 29, 2023 4:16 PM documented in this encounter [facility] 12-22-2023 Telephone encounter Note PT called to cancel appointment 01/21, stating that he did not need to see Brent due to him having an appointment w/ a marketing operations associate.Reiterated to the PT last appointment orders and that issue brent was seeing for is recommended to keep appointment w/ urology. PT still refused cancelled appointment. Noah Mejia [facility] 12-22-2023 Miscellaneous Notes PT called to cancel appointment 01/21, stating that he did not need to see Brent due to him having an appointment w/ a marketing operations associate.Reiterated to the PT last appointment orders and that issue brent was seeing for is recommended to keep appointment w/ urology. PT still refused cancelled appointment. Noah Mejia documented in this encounter [facility] 12-18-2023 Telephone encounter Note Called the patient and left a voice message asking the patient to call the office back to schedule his Screening Colonoscopy. Brittany Roberson [facility] 12-18-2023 Miscellaneous Notes Called the patient and left a voice message asking the patient to call the office back to schedule his Screening Colonoscopy. Brittany Roberson documented in this encounter [facility] 11-20-2023 Miscellaneous Notes SITUATION: only patient [...] for intervention/education details. documented in this encounter [facility] 11-20-2023 Patient's home Note SITUATION: only [...] restrictions See intervention summary for intervention/education details. [facility] Work Phone: 11-17-2023 Telephone encounter Note Unable to reach patient by phone to schedule P.T. visit. [facility] Work Phone: 11-17-2023 Miscellaneous Notes Unable to reach patient by phone to schedule P.T. visit. documented in this encounter [facility] 11-17-2023 Miscellaneous Notes Called all numbers listed for patient and left voice messages. Patient/caregiver did not return phone calls. documented in this encounter [facility] 11-17-2023 Plan of care note Called all numbers listed for patient and left voice messages. Patient/caregiver did not return phone calls. [facility] Work Phone: 11-17-2023 Miscellaneous Notes SN contacted Dr. Scott's office, no answer, VM left on nurse line with patient's name, , and message that this patient has been discharged [facility]-goals met. Call back number of [phone]. documented in this encounter [facility] 11-17-2023 Patient's home Note SN contacted Dr. Scott's office, no answer, VM left on nurse line with patient's name, , and message that this patient has been discharged from [facility]-goals met. Call back number of [phone]. [facility] Work Phone: 11-16-2023 Miscellaneous Notes SITUATION: [facility] Discharge visit completed today. only patient [...] Discharged due to Goals met. SN emailed relations mgrGirma herman RN re: SNDD today, asked if she would report this to Dr Scott since she is not in [place] system RECOMMENDATION: Patient to continue with PT services. documented in this encounter [facility] 11-16-2023 Patient's home Note SITUATION: [facility] Discipline Discharge visit completed today. only patient [...] Discharged due to Goals met. SN emailed relations mgrGirma herman RN re: SNDD today, asked if she would report this to Dr Scott since she is not in [facility] system RECOMMENDATION: Patient to continue with PT services. [facility] Work Phone: 11-15-2023 Miscellaneous Notes received a return fax from Dr. Scott dated 11/08/23 stating: Patient to continue with Sliding Scale INsulin only. No regularly scheduled Insulin dosing. This Sn then called sister Janell to inform her of this message. She states that is what he has been doing. Ster verbalizes understanding. documented in this encounter [facility] 11-15-2023 Patient's home Note SN received a return fax from Dr. Scott dated 11/08/23 stating: Patient to continue with Sliding Scale INsulin only. No regularly scheduled Insulin dosing. This Sn then called sister Janell to inform her of this message. She states that is what he has been doing. Ster verbalizes understanding. [facility] Work Phone: 11-15-2023 Miscellaneous Notes 11/15/23 11:16 AM - 11:20 AM COAL MINE INSPECTOR received a phone call from the pt.'s sister Janell Waldrop and she stated that they did not complete the paperwork for PASSPORT due to she stated they did not think the pt. would qualify. COAL MINE INSPECTOR asked the pt.'s sister if the pt. was able to bath himself. She stated that he is able to take his own shower. She stated she sets up his meds and he is able to get his meals. She stated that she took him grocery shopping yesterday, COAL MINE INSPECTOR asked the pt.'s sister about transportation for the pt. to go to Outpatient Therapy. The pt.'s sister stated he goes on Monday and she is take him. The pt.'s sister stated she will transport the pt. to his Outpatient Therapy and they are aware of [facility]. She stated that the pt. was doing alot better. COAL MINE INSPECTOR informed the pt.'s sister to call COAL MINE INSPECTOR with any needs. documented in this encounter [facility] 11-15-2023 Patient's home Note 11/15/23 11:16 AM - 11:20 AM COAL MINE INSPECTOR received a phone call from the pt.'s sister Janell Waldrop and she stated that they did not complete the paperwork for PASSPORT due to she stated they did not think the pt. would qualify. COAL MINE INSPECTOR asked the pt.'s sister if the pt. was able to bath himself. She stated that he is able to take his own shower. She stated she sets up his meds and he is able to get his meals. She stated that she took him grocery shopping yesterday, COAL MINE INSPECTOR asked the pt.'s sister about transportation for the pt. to go to Outpatient Therapy. The pt.'s sister stated he goes on Monday and she is take him. The pt.'s sister stated she will transport the pt. to his Outpatient Therapy and they are aware of [facility]. She stated that the pt. was doing alot better. COAL MINE INSPECTOR informed the pt.'s sister to call COAL MINE INSPECTOR with any needs. [facility] Work Phone: 11-14-2023 Miscellaneous Notes 11/14/23 11:51 AM - 11:53 AM COAL MINE INSPECTOR called the pt.'s sister Janell and left her a message that COAL MINE INSPECTOR was calling regarding if the pt. had a PASSPORT assessment and regarding transportation for Outpatient Therapy. COAL MINE INSPECTOR left her name and phone number for the pt.'s sister to call COAL MINE INSPECTOR back. documented in this encounter [facility] 11-14-2023 Patient's home Note 11/14/23 11:51 AM - 11:53 AM COAL MINE INSPECTOR called the pt.'s sister Janell and left her a message that COAL MINE INSPECTOR was calling regarding if the pt. had a PASSPORT assessment and regarding transportation for Outpatient Therapy. COAL MINE INSPECTOR left her name and phone number for the pt.'s sister to call COAL MINE INSPECTOR back. [facility] Work Phone: 11-14-2023 Miscellaneous Notes SITUATION: [...] for intervention/education details. documented in this encounter [facility] 11-14-2023 Patient's home Note SITUATION: only [...] d/c See intervention summary for intervention/education details. [facility] Work Phone: 11-13-2023 Miscellaneous Notes SITUATION: [...] for intervention/education details. documented in this encounter [facility] 11-13-2023 Patient's home Note SITUATION: OT [...] bathing See intervention summary for intervention/education details. [facility] Work Phone: 11-10-2023 Telephone encounter Note S: Patient sister called the clinical access center with complaint of Questions about G7 Dexcom. B: Ongoing unsure if the reader will pick up worker the blood sugar reading when he places the new G7 A: Patient c/o trying to put new G7 sensor on. Asking if the reader will work when they replace the sensor. R: Advised the reader should automatically pick up worker with the new G7 sensor. If any [...] triager answers question Protocols used: Medication Question [id number] [facility] 11-10-2023 Miscellaneous Notes S: Patient sister called the clinical access center with complaint of Questions about G7 Dexcom. B: Ongoing unsure if the reader will pick up worker the blood sugar reading when he places the new G7 A: Patient c/o trying to put new G7 sensor on. Asking if the reader will work when they replace the sensor. R: Advised the reader should automatically pick up worker with the new G7 sensor. If any [...] triager answers question Protocols used: Medication Question [id number] documented in this encounter [facility] 11-10-2023 Miscellaneous Notes SITUATION: Mcfp routine visit completed today. SISTER also present [...] 206 at 11:30pm last night. This am [id number]. Patient denies any s/s HTN See intervention summary for education details. Patient demonstrated a need for further skilled SN services for chronic disease management & education and safety. Current Discharge plan: family support RECOMMENDATION: Next visit to focus on (be specific): SNDD documented in this encounter [facility] 11-10-2023 Patient's home Note SITUATION: Mcfp routine visit completed today. SISTER also present [...] 206 at 11:30pm last night. This am yes=[id number]. Patient denies any s/s HTN See intervention summary for education details. Patient demonstrated a need for further skilled SN services for chronic disease management & education and safety. Current Discharge plan: family support RECOMMENDATION: Next visit to focus on (be specific): SNDD [facility] Work Phone: 11-09-2023 Miscellaneous Notes SITUATION: [...] for intervention/education details. documented in this encounter [facility] 11-09-2023 Patient's home Note SITUATION: only [...] training See intervention summary for intervention/education details. [facility] Work Phone: 11-07-2023 Miscellaneous Notes SITUATION: [...] for intervention/education details. documented in this encounter [facility] 11-07-2023 Patient's home Note SITUATION: sister [...] ex See intervention summary for intervention/education details. [facility] Work Phone: 11-07-2023 Miscellaneous Notes Patient's sister cancelled vs for today, patient has PCP appt. She said to make next SN vs FRI this week. SN Notified adult protective caseworkermgr Girma Hinds RN, She will fax Dr Scott re: missed vs as she is not in [place] system documented in this encounter [facility] 11-07-2023 Patient's home Note Patient's sister cancelled vs for today, patient has PCP appt. She said to make next SN vs FRI this week. SN Notified adult protective caseworkermgr Girma Hinds RN, She will fax Dr Scott re: missed vs as she is not in [place] system [facility] Work Phone: 11-06-2023 Miscellaneous Notes SITUATION: [...] ue hep safety documented in this encounter [facility] 11-06-2023 Patient's home Note SITUATION: OT [...] focus on review of ue hep safety [facility] Work Phone: 11-03-2023 Miscellaneous Notes sent [...] Simeon Hinds RN documented in this encounter [facility] 11-03-2023 Patient's home Note SN sent [...] Please return to Attn: Simeon Hinds RN [facility] Work Phone: 11-03-2023 Miscellaneous Notes SITUATION: Mcfp routine visit completed today. only patient also [...] sliding scale. So this am , his ZTN=293 & he only took 2 units Humalog, NOT 10 units total. SN called Dr Scott's office, yet they are closed, 3:30pm. SN reported this to adult protective caseworkerGirma herman RN & She will fax this [...] understanding. His sister is also going to pick up worker some glucose tablets at the pharmacy [facility] [...] if humalog clarified? documented in this encounter [facility] 11-03-2023 Patient's home Note SITUATION: Mcfp routine visit completed today. only patient also [...] sliding scale. So this am , his NEE=630 & he only took 2 units Humalog, NOT 10 units total. SN called Dr Scott's office, yet they are closed, 3:30pm. SN reported this to adult protective caseworkerGirma herman RN & She will fax this [...] understanding. His sister is also going to pick up worker some glucose tablets at the pharmacy [facility] [...] med list, see if humalog clarified? T [facility] Work Phone: 11-02-2023 Miscellaneous Notes SITUATION: [...] for intervention/education details. documented in this encounter [facility] 11-02-2023 Patient's home Note SITUATION: only [...] training See intervention summary for intervention/education details. [facility] Work Phone: 10-31-2023 Miscellaneous Notes SITUATION: Mcfp routine visit completed today. only patient also [...] uses ice. [facility] is healing, dry, pink, RN ORTHO. Small scab left to upper portion. States [...] PCP appt 10/31 documented in this encounter [facility] 10-31-2023 Patient's home Note SITUATION: Mcfp routine visit completed today. only patient also [...] uses ice. Incision is healing, dry, pink, RN ORTHO. Small scab left to upper portion. States [...] med changes from his PCP appt 10/31 [facility] Work Phone: 10-30-2023 Miscellaneous Notes SITUATION: [...] bathing and transfers documented in this encounter [facility] 10-30-2023 Patient's home Note SITUATION: OT [...] focus on shower level bathing and transfers [facility] Work Phone: 10-28-2023 Miscellaneous Notes PT [...] Disease, With Long-Term Current Use of Insulin ([facility]) Obesity, Class II, Bmi 35-39.9 Weight Bearing or Surgical Precautions: Fall Risk No BLT > 10#, LSO brace OOB, PPPD (vertigo), extreme fall risk, prefers cane for mobilization ASSESSMENT: Patient evaluated by [facility] physical therapy. Reviewed and explained [...] for intervention/education details. documented in this encounter [facility] 10-28-2023 Patient's home Note PT to contact Dr. Gutierrez on 10/30/23 for the following: Clarify status of back brace. [facility] Work Phone: 10-28-2023 Patient's home Note [...] cane for mobilization ASSESSMENT: Patient evaluated by [facility] physical therapy. Reviewed and explained [...] HEP. See intervention summary for intervention/education details. [facility] 10-27-2023 Telephone encounter Note Patient accepted and confirmed PT eval for 10/28/23. [facility] 10-27-2023 Miscellaneous Notes Patient accepted and confirmed PT eval for 10/28/23. documented in this encounter [facility] 10-27-2023 Telephone encounter Note There has been a delay in service for Home Care PT Evaluation for this patient due to schedule conflict. Patient was notified on 10/27/23. Thank you for this referral, please contact us with any questions. Maxine Alonzo [facility] 10-27-2023 Miscellaneous Notes There has been a delay in service for Home Care PT Evaluation for this patient due to schedule conflict. Patient was notified on 10/27/23. Thank you for this referral, please contact us with any questions. Maxine Lopez Senior Teller documented in this encounter [facility] 10-27-2023 Miscellaneous Notes SITUATION: OT evaluation [...] Disease, With Long-Term Current Use of Insulin ([facility]) Obesity, Class II, Bmi 35-39.9 [...] due to surgical precautions. Patient evaluated by [facility] occupational therapy. Reviewed and explained [...] for intervention/education details. documented in this encounter [facility] 10-27-2023 Patient's home Note SITUATION: OT [...] due to surgical precautions. Patient evaluated by [facility] occupational therapy. Reviewed and explained [...] hep. See intervention summary for intervention/education details. [facility] Work Phone: 10-26-2023 Miscellaneous Notes 10/26/23 COAL MINE INSPECTOR made a PASSPORT referral for the pt. to [facility]. documented in this encounter [facility] 10-26-2023 Patient's home Note 10/26/23 COAL MINE INSPECTOR made a PASSPORT referral for the pt. to [facility]. [facility] Work Phone: 10-26-2023 Miscellaneous Notes SITUATION: [...] Current Use of Insulin (Hcc), Reason for COORDINATOR SKILL TRAINING PROGRAM referral: eval and treat for [employer] or Mom's meals?, eligible for PASSPORT. Pt could use both for personal care and homemaking assist. Family dynamics and household members: The pt. lives alone in senior apartment that he recently moved into the end of August. The pt.'s sister Lcai Waldrop who lives in [place] is the pt.'s primary caregiver. ASSESSMENT: COORDINATOR SKILL TRAINING PROGRAM greeted at door by Eda Bright RN who was finishing her visit. The patien's sister fisher been assisting the pt. almost daily and feels the pt. needs more help in the home. Se is concerned about the pt. needing assist with bathing. Comments: COAL MINE INSPECTOR arrived the pt.'s apt. and the pt.'s sister had went to meet COAL MINE INSPECTOR at the main door. The pt.'s sister Janell came back to the pt.'s apt. The pt.'s apt. was scarcely furnished and the pt. does not have a TV. The pt.'s sister stated she is going to buy the pt. a smart TV. The pt.'s sister discussed how the pt. living in a basement apartment the nutrition director on his phone and TV are not good and she was told to get the pt. a smart TV. The pt. has a radio that he had on. COAL MINE INSPECTOR educated the pt. and his sister Janell on [facility] and PASSPORT for an Aide/Homemaker, Home Delivered Meals and ER Medical Alert. The pt.'s sister stated she was going to check into the pt.'s insurance [facility] Medicare regarding if they would provide the pt. with an ER Medical Alert. COAL MINE INSPECTOR informed the pt. and his sister that they can call member or customer service on the back of the pt.'s insurnace card regarding this. COAL MINE INSPECTOR educated on [facility] for Home Delivered Meals and [place] Home Delivered Meals through [facility]. The pt.'s sister discussed the pt. needing to be on a Diabetic diet. COAL MINE INSPECTOR discussed other Home Delivered Meal Providers sucha as Moms Meals and Global Meals for Diabetic Meals and they are provided under PASSPORT. The pt. and his sister want COAL MINE INSPECTOR to make a PASSPORT referral for the pt. to [facility]. COAL MINE INSPECTOR did inform the pt. and his sister it takes time to get on PASSPORT. The pt.'s sister has been taking the pt. to all his medical appointments. COAL MINE INSPECTOR educated on [facility] [employer] and that the pt.'s [facility] Medicare may provide transportation to medical appointments and to talk with member or customer service on the back of the pt.'s insurance card. The pt.'s sister stated she grocery shops for the pt. COAL MINE INSPECTOR educated on [facility] having Volunteers that will grocery shop at [facility] for you. ;SW discussed with the pt. and his sister regarding Advanced Directives for the Living Will and Medical POA. The pt.stated she puts his sister giancarlow that they can talk to her. COAL MINE INSPECTOR educated more the Medical POA and Living Will. The pt.'s sister stated she thinks the insurance lady gave them the forms that they can complete if wanted. The pt.'s sister is planning to take the pt. to a Writer Producer to get the pt.'s toenails cut. COAL MINE INSPECTOR educated the pt. and his sister on the [employer] for a Writer Producer to come to the home if too hard to get the pt. out. RECOMMENDATIONS: Recommended the following services: [facility]/PASSPORT, [facility] office For Older Adults for Home Delivered Meals, Volunteer to grocery shop at [facility], [facility] Medicare may provide transportation to medical appointments and provide the pt. with an ER Medical Alert, other Home Delivered Meal Providers. Referrals made to: COAL MINE INSPECTOR made a PASSPORT referral for the pt. to [facility]. Written information provided: On [facility]/PASSPORT. Response to recommendations: patient and his siter Janell in agreement to referral made to [facility] for PASSPORT. Medical social work provided support services in order to ensure a safe and appropriate discharge plan. If care team members have any additional concerns identified in the home, please notify COORDINATOR SKILL TRAINING PROGRAM for follow up. COORDINATOR SKILL TRAINING PROGRAM provided name and number to patient and his sister Janell for follow up if/when needed. Team/Physician updated: 1:49 PM - 1:52 PM COAL MINE INSPECTOR [facility] COAL MINE INSPECTOR made a home visit to the pt. today and his sister Janell was present. COAL MINE INSPECTOR stated that the pt.'s sister Janell assists the pt. almost daily. COAL MINE INSPECTOR stated that she made a PASSPORT referral for the pt. to [facility] for the pt. to get an Aide/Homemaker, Home Delivered Meals, ER Medical Alert. COAL MINE INSPECTOR stated that she spoke to the pt. and his sister regarding transportation and that the pt.'s [facility] Medicare may provide transportation to medical appointments and provide the pt. with an ER Medical Alert. Mckayla stated she will inform the DrShireen of this. documented in this encounter [facility] 10-26-2023 Patient's home Note SITUATION: Medical [...] Current Use of Insulin (Hcc), Reason for COORDINATOR SKILL TRAINING PROGRAM referral: eval and treat for [employer] or Mom's meals?, eligible for PASSPORT. Pt could use both for personal care and homemaking assist. Family dynamics and household members: The pt. lives alone in senior apartment that he recently moved into the end of August. The pt.'s sister Laci Waldrop who lives in [place] is the pt.'s primary caregiver. ASSESSMENT: COORDINATOR SKILL TRAINING PROGRAM greeted at door by Eda Bright RN who was finishing her visit. The patien's sister fisher been assisting the pt. almost daily and feels the pt. needs more help in the home. Se is concerned about the pt. needing assist with bathing. Comments: COAL MINE INSPECTOR arrived the pt.'s apt. and the pt.'s sister had went to meet COAL MINE INSPECTOR at the main door. The pt.'s sister Janell came back to the pt.'s apt. The pt.'s apt. was scarcely furnished and the pt. does not have a TV. The pt.'s sister stated she is going to buy the pt. a smart TV. The pt.'s sister discussed how the pt. living in a basement apartment the nutrition director on his phone and TV are not good and she was told to get the pt. a smart TV. The pt. has a radio that he had on. COAL MINE INSPECTOR educated the pt. and his sister Janell on [facility] and PASSPORT for an Aide/Homemaker, Home Delivered Meals and ER Medical Alert. The pt.'s sister stated she was going to check into the pt.'s insurance [facility] Medicare regarding if they would provide the pt. with an ER Medical Alert. COAL MINE INSPECTOR informed the pt. and his sister that they can call member or customer service on the back of the pt.'s insurnace card regarding this. COAL MINE INSPECTOR educated on [facility] for Home Delivered Meals and [place] Home Delivered Meals through [facility]. The pt.'s sister discussed the pt. needing to be on a Diabetic diet. COAL MINE INSPECTOR discussed other Home Delivered Meal Providers sucha as Moms Meals and Global Meals for Diabetic Meals and they are provided under PASSPORT. The pt. and his sister want COAL MINE INSPECTOR to make a PASSPORT referral for the pt. to [facility]. COAL MINE INSPECTOR did inform the pt. and his sister it takes time to get on PASSPORT. The pt.'s sister has been taking the pt. to all his medical appointments. COAL MINE INSPECTOR educated on [facility] [employer] and that the pt.'s [facility] Medicare may provide transportation to medical appointments and to talk with member or customer service on the back of the pt.'s insurance card. The pt.'s sister stated she grocery shops for the pt. COAL MINE INSPECTOR educated on [facility] having Volunteers that will grocery shop at [employer] for you. ;SW discussed with the pt. and his sister regarding Advanced Directives for the Living Will and Medical POA. The pt.stated she puts his sister donw that they can talk to her. COAL MINE INSPECTOR educated more the Medical POA and Living Will. The pt.'s sister stated she thinks the insurance lady gave them the forms that they can complete if wanted. The pt.'s sister is planning to take the pt. to a Writer Producer to get the pt.'s toenails cut. COAL MINE INSPECTOR educated the pt. and his sister on the [employer] for a Writer Producer to come to the home if too hard to get the pt. out. RECOMMENDATIONS: Recommended the following services: [facility] on [email or web address], [facility] office For Older Adults for Home Delivered Meals, Volunteer to grocery shop at [facility] Medicare may provide transportation to medical appointments and provide the pt. with an ER Medical Alert, other Home Delivered Meal Providers. Referrals made to: COAL MINE INSPECTOR made a PASSPORT referral for the pt. to [facility]. Written information provided: On [facility]/PASSPORT. Response to recommendations: patient and his siter Janell in agreement to referral made to [facility] on [employer] for PASSPORT. Medical social work provided support services in order to ensure a safe and appropriate discharge plan. If care team members have any additional concerns identified in the home, please notify COORDINATOR SKILL TRAINING PROGRAM for follow up. COORDINATOR SKILL TRAINING PROGRAM provided name and number to patient and his sister Janell for follow up if/when needed. Team/Physician updated: 1:49 PM - 1:52 PM COAL MINE INSPECTOR called Dr. Bunny Scott and spoke to [facility] regarding COAL MINE INSPECTOR made a home visit to the pt. today and his sister Janell was present. COAL MINE INSPECTOR stated that the pt.'s sister Janell assists the pt. almost daily. COAL MINE INSPECTOR stated that she made a PASSPORT referral for the pt. to [facility] [employer] [facility] for the pt. to get an Aide/Homemaker, Home Delivered Meals, ER Medical Alert. OSCAR stated that she spoke to the pt. and his sister regarding transportation and that the pt.'s [facility] Medicare may provide transportation to medical appointments and provide the pt. with an ER Medical Alert. Mckayla stated she will inform the DrShireen of this. [facility] Work Phone: 10-26-2023 Miscellaneous Notes SITUATION: Mcfp routine visit completed today. pt's sister also [...] blood sugars, pain documented in this encounter [facility] 10-26-2023 Patient's home Note SITUATION: Mcfp routine visit completed today. pt's sister also [...] them to cleanse with alcohol & leave RN ORTHO or can apply ABD for protection/padding Patient [...] specific): assess back incision, blood sugars, pain [facility] Work Phone: 10-24-2023 Miscellaneous Notes 10/24/23 9:30 AM - 9:35 AM COAL MINE INSPECTOR received a phone call from the pt.'s sister Janell Ashton returning COAL MINE INSPECTOR'S phone call. COAL MINE INSPECTOR stated she was calling regarding the pt. and community resources. COAL MINE INSPECTOR educated the pt.'s sister on [facility] and PASSPORT. COAL MINE INSPECTOR discussed an Aide/Homemaker, Home Delivered Meals and ER Medical Alert under PASSPORT. COAL MINE INSPECTOR stated she could make a home visit and the pt.'s sister supportive of this. She stated that she got the pt. a shower chair and handheld shower.She stated that she is not sure about the pt. bathing. The pt.'s sister wants to be present for COAL MINE INSPECTOR visit and COAL MINE INSPECTOR visit scheduled for 10/26/23 at 10:00 AM. documented in this encounter [facility] 10-24-2023 Patient's home Note 10/24/23 9:30 AM - 9:35 AM COAL MINE INSPECTOR received a phone call from the pt.'s sister Janell Ashton returning COAL MINE INSPECTOR'S phone call. COAL MINE INSPECTOR stated she was calling regarding the pt. and community resources. COAL MINE INSPECTOR educated the pt.'s sister on [facility] and PASSPORT. COAL MINE INSPECTOR discussed an Aide/Homemaker, Home Delivered Meals and ER Medical Alert under PASSPORT. COAL MINE INSPECTOR stated she could make a home visit and the pt.'s sister supportive of this. She stated that she got the pt. a shower chair and handheld shower.She stated that she is not sure about the pt. bathing. The pt.'s sister wants to be present for COAL MINE INSPECTOR visit and COAL MINE INSPECTOR visit scheduled for 10/26/23 at 10:00 AM. [facility] Work Phone: 10-23-2023 Miscellaneous Notes 10/23/23 12:48 PM - 12;50 PM COAL MINE INSPECTOR called the pt.'s sister Janell Ashton and left her a message that COAL MINE INSPECTOR was calling regarding the pt. and community resources and more help with the pt.'s care. COAL MINE INSPECTOR left her name and phone number to call COAL MINE INSPECTOR back. documented in this encounter [facility] 10-23-2023 Patient's home Note 10/23/23 12:48 PM - 12;50 PM COAL MINE INSPECTOR called the pt.'s sister Janell Ashton and left her a message that COAL MINE INSPECTOR was calling regarding the pt. and community resources and more help with the pt.'s care. COAL MINE INSPECTOR left her name and phone number to call COAL MINE INSPECTOR back. [facility] Work Phone: 10-22-2023 Miscellaneous Notes SITUATION: [facility] SOC visit completed today. only patient present [...] laminectomy on 09/[address] [facility] for rehab. He returned home on [...] on edge of bed for review of [facility] booklet and signed consent. SN then assessed [...] be here after she gets home from [facility]. Pt has a lower back incision that is covered with a ABD pad and has lidocaine patches to either side(placed on 10/19). All of this was removed by SN. Incision is well approximated and secured with steristrips. There is a small opening at most proximal area that has a scant amount of serous drainage and pt was placed on cephalexin before dc by [facility]. Immediate area is slightly red but [...] and pt and sister are VERY interested. COORDINATOR SKILL TRAINING PROGRAM referral is in place to address. SN will also have COORDINATOR SKILL TRAINING PROGRAM address any other resources such as PASSPORT; pt could benefit from personal care assistance as well as homemaking and ways to make him more independent from his sister. Pt's surgery was at [facility] and he will follow up with [...] with his care but does live in [place] and is not available 24/10 See intervention [...] services: Patient agreeable to PT, OT and COORDINATOR SKILL TRAINING [employer] referrals. Patient declined N/A referrals. Additional concerns to be followed up on: NONE Next visit to focus on (be specific): incision check, CP assessment, continue diabetic teaching, follow up on COORDINATOR SKILL TRAINING PROGRAM referral for community resources. documented in this encounter [facility] 10-22-2023 Patient's home Note SITUATION: Mcfp SOC visit completed today. only patient present [...] laminectomy on 09/[address] [facility] for rehab. He returned home on [...] on edge of bed for review of [facility] booklet and signed consent. SN then assessed [...] be here after she gets home from [facility]. Pt has a lower back incision that is covered with a ABD pad and has lidocaine patches to either side(placed on 10/19). All of this was removed by SN. Incision is well approximated and secured with steristrips. There is a small opening at most proximal area that has a scant amount of serous drainage and pt was placed on cephalexin before dc by [facility]. Immediate area is slightly red but [...] and pt and sister are VERY interested. COORDINATOR SKILL TRAINING PROGRAM referral is in place to address. SN will also have COORDINATOR SKILL TRAINING PROGRAM address any other resources such as PASSPORT; pt could benefit from personal care assistance as well as homemaking and ways to make him more independent from his sister. Pt's surgery was at [facility] and he will follow up with [...] with his care but does live in [place] and is not available 24/10 See intervention [...] services: Patient agreeable to PT, OT and COORDINATOR SKILL TRAINING PROGRAM referrals. Patient declined N/A referrals. Additional concerns to be followed up on: NONE Next visit to focus on (be specific): incision check, CP assessment, continue diabetic teaching, follow up on COORDINATOR SKILL TRAINING PROGRAM referral for community resources. [facility] Work Phone: 10-21-2023 Miscellaneous Notes Patient accepted and confirmed home health start of care (SOC) for 10/22/23. Visit time established. documented in this encounter [facility] 10-21-2023 Telephone encounter Note Patient accepted and confirmed home health start of care (SOC) for 10/22/23. Visit time established. [facility] Work Phone: 10-20-2023 Telephone encounter Note Called patient to confirm and schedule start of care visit. No answer. Left voicemail [facility] 10-20-2023 Miscellaneous Notes Called patient to confirm and schedule start of care visit. No answer. Left voicemail documented in this encounter [facility] 10-18-2023 Note [facility] 10-18-2023 Note [facility] 10-17-2023 Note [facility] 10-15-2023 Note HNO ID: [id number] Author: JARETT MCMULLEN, RN Service: Nursing Author Type: Registered Nurse Type: Nursing Progress Note Filed: 10/15/2023 12:28 Note Text: Service dog in to see patient at this time. [facility] 10-13-2023 Note [facility] 10-13-2023 Telephone encounter Note Date/Time: 10/13/2023 9:21 AM Spoke with Janell Ashton @ phone #: [phone] - Preferred # for contact: [phone] Have you received help from a home care company in the last 60 days? NO Are you agreeable to [facility] services? YES What address will we be seeing you at? [address] [place] [address] [place], [place] [id number] Do you have any upcoming appointments or things we need to schedule around? 10/20/23, 10/25/23 Do you have a teachable CG or can you manage your care independently? Independently FLU SHOT NOT SURE WHERE [facility] Work Phone: 10-13-2023 Miscellaneous Notes Date/Time: 10/13/2023 9:21 AM Spoke with Janell Ashton @ phone #: [phone] - Preferred # for contact: [phone] Have you received help from a home care company in the last 60 days? NO Are you agreeable to [facility] services? YES What address will we be seeing you at? [address] [facility] [address] Do you have any upcoming appointments or things we need to schedule around? 10/20/23, 10/25/23 Do you have a teachable CG or can you manage your care independently? Independently FLU SHOT NOT SURE WHERE Called pt and sister Janell, left messages to call office, wanted to confirm home care services. Savanna Mayorga LPN documented in this encounter [facility] 10-12-2023 Telephone encounter Note Called and spoke with Shelia in providers office, she confirmed will follow for services. Savanna Mayorga LPN [facility] Work Phone: 10-12-2023 Miscellaneous Notes Called and spoke with Shelia in providers office, she confirmed will follow for services. Savanna Mayorga LPN documented in this encounter [facility] 10-12-2023 Telephone encounter Note Called pt and sister Janell, left messages to call office, wanted to confirm home care services. Savanna Mayorga LPN [facility] Work Phone: 10-09-[address] [facility] 10-06-[address] [facility] 10-04-[address] [facility] 08-04-2023 Telephone encounter Note Spoke with José Manuel Ashton's on August 04, 2023. Informed of results / instructions as stated above. Maryuri LAMBERT Romero states she will be taking José Manuel to a Service Correspondent for his potassium but he will still have to follow up here for his A1c. CLOSED [facility] 08-04-2023 Miscellaneous Notes Spoke with José Manuel Ashton's on August 04, 2023. Informed of results / instructions as stated above. Maryuri Romero MA states she will be taking José Manuel to a Service Correspondent for his potassium but he will still have to follow up here for his A1c. CLOSED Called patients home and left VM to call back office at [phone]. Please give message below. Thank you I [...] patient is scheduled for surgery at the [facility] on 08/08/23. They are requesting surgical clearance for diabetes from Dr Peterson. We have not received their fax as of yet. Recommended she have them re-fax the form. Also, apparently he had recent labs drawn with [facility] including an updated A1c, recommended she [...] results to proceed. documented in this encounter [facility] 08-03-2023 Telephone encounter Note Called patients home and left VM to call back office at [phone]. Please give message below. [facility] 08-03-2023 Telephone encounter Note Thank you [...] received anything from the anaesthesia/surgical team HH [facility] Work Phone: 08-01-2023 Telephone encounter Note Pt called and stated that the Flomax capsules gets stuck in throat so he can't take it and would like it to be in tablet form or change medication. Pt also stated that he has not have the Proscar and would need a Rx for that, please advise. Julieta odonnell MA [facility] 08-01-2023 Miscellaneous Notes Pt called and stated that the Flomax capsules gets stuck in throat so he can't take it and would like it to be in tablet form or change medication. Pt also stated that he has not have the Proscar and would need a Rx for that, please advise. Julieta odonnell MA documented in this encounter [facility] 07-28-2023 Telephone encounter Note Received a call from patients (Janell) she state's patient is scheduled for surgery at the [facility] on 08/08/23. They are requesting surgical clearance for diabetes from Dr Peterson. We have not received their fax as of yet. Recommended she have them re-fax the form. Also, apparently he had recent labs drawn with [facility] including an updated A1c, recommended she [...] await documents and lab results to proceed. [facility] 07-12-2023 Note Jude Peterson [facility] 07-12-2023 History of Present illness Narrative ESTABLISHED [...] (no units) Date Value 06/04/2023 Negative Specific [place], Ur (no units) Date Value 06/04/2023 1.020 [...] quittin.2 Smokeless tobacco: Never Tobacco comments: Smokes [place] Vaping Use Vaping Use: Never used Substance [...] neg 02/17/2020 PSA 0.8, no Fhx of Plant Engineering Manager Assessment and Plan: Microhematuria- prior w/u neg, [...] surgery PSA ordered documented in this encounter [facility] 06-22-2023 History of Present illness Narrative [...] 2 diabetes, hypertension, hyperlipidemia, depression, [place] to [facility] [place]23 with polyp, lumbar radiculopathy, history [...] quittin.2 Smokeless tobacco: Never Tobacco comments: Smokes [place] Vaping Use Vaping Use: Never used Substance [...] Review Reviewed by Sebas Ocampo MD, Ph.D ([id number]) Comment (Serum Prot Electro) A reflex test [...] 3,715.7 Albumin/Creat Ratio <30 mg/g 5,008 (H) [place] Free, Serum 3.3 - 19.4 mg/L 57.0 (H) Lambda Free, Serum 5.7 - 26.3 mg/L 36.1 (H) K/L Ratio, Serum 0.26 - 1.65 1.58 DNA Antibody <=200 IU/mL 16 DNA Antibody Qualitative Interpretation Negative Negative MPA Result No M protein is identified. No M protein is identified. Staff Review ([facility]) Reviewed by Sebas Ocampo MD, Ph.D ([id number]) C3 86 - 166 mg/dL 147 C4 [...] follow-ups on file. documented in this encounter [facility] 06-20-2023 Evaluation note Diagnosis Stage 3a chronic kidney disease (HCC)- Primary Hypertension, essential Unspecified essential hypertension Vitamin D deficiency Unspecified vitamin D deficiency Other proteinuria Secondary hyperparathyroidism (HCC) Secondary hyperparathyroidism (of renal origin) documented in this encounter [facility]03-11-2024 NoteHNO ID: [id number] Author: KANWAL CALLE RN Service: Nursing Author Type: Registered Nurse Type: Nursing Progress Note Filed: 06/12/2023 14:16 Note Text: Other: watched channel 95 fall video and verballized understanding.[facility]03-11-2024 History of Past illness Narrative* [...] of this encounter (statuses as of 06/20/2023) [facility]03-11-2024 History of Past illness Narrative* Problem [...] of this encounter (statuses as of 06/22/2023) [facility]03-11-2024 History of Past illness Narrative* Problem [...] of this encounter (statuses as of 07/13/2023) [facility]03-09-2024 [facility]03-09-2024 NoteHNO ID: [id number] Author: NOTE, INTERFACE, ? Service: ? Author Type: ? Type: Progress Notes Filed: 06/10/2023 03:42 Note Text: Epic Scheduled Downtime: 06/10/2023 1:00:00 AM to 06/10/2023 3:24:[facility]03-07-2024 [facility]03-06-2024 [facility]03-04-2024 Note [facility]03-03-2024 [facility] 06-03-2023 [facility]03-01-2024 [facility]02-27-2024 [facility]02-26-2024 [facility]02-25-2024 [facility]02-20-2024 [facility]02-20-2024 History of Present illness Narrative* [...] YES Jen Bergman RN documented in this encounterOur [facility]02-[facility] History of Present illness Narrative* Mónica [...] quittin.1 Smokeless tobacco: Never Tobacco comments: Smokes [place] Vaping Use Vaping Use: Never used Substance [...] DAILY (6 AM). 30 tablet 2 Insulin [place], Disposable, (COMFORT EZ PEN NEEDLES) 29 gauge [...] - Moderate This note was created using Smart Lunches dictation software. You may find errors that were missed during proofreading. They are purely unintentional and if there are any concerns regarding this dictation, please do not hesitate to contact the dictating provider for clarification. Mónica Peterson MD documented in this encounterOur [facility]02-16-2024 [facility]02-16-2024 History of Present illness Narrative* [...] 10/05/2022 Urine Albumin:Creatinine Ratio 01/23/2023 HbA1C 02/01/2023 Surgical Services Director plan for next outreach: Will follow-up in about a month. Signature: Jen Bergman RN May 19, 2023 documented in this encounterOur Lady Of [facility]cy [facility]02-09-2024 Miscellaneous Notes* Telephone Encounter - Elisabeth Parekh - 05/12/2023 8:10 AM EST Spoke to patients sister who stated she handles calls for José Manuel . Notified of canceled appt due to provider being out of office. She did not want to reschedule the appointment. Thanks Elisabeth Parekh documented in this encounterOur [facility]12-05-2023 Miscellaneous Notes* Telephone Encounter - Juliette, Lily - 03/07/2023 12:25 PM ESTSummary: appointment cancellation Left voicemail at [phone] about rescheduling appt with Dr. Godinez. Left phone number for patient to call in. Tmr 03-07-23 12:23pm documented in this encounterOur [facility]10-27-2023 History of Present illness Narrative* Jen [...] Understands and follows DASH diet Weight mgmt/activity Surgical Services Director plan for next outreach: Will follow-up in about 1 month. Signature: Jen Bergman RN January 27, 2023 documented in this encounterOur [facility] Of [facility]cy [facility]10-23-2023 History of Present illness Narrative* Mark [...] quittin.8 Smokeless tobacco: Never Tobacco comments: Smokes [place] Vaping Use Vaping Use: Never used Substance [...] 8 hours as needed for nausea/vomiting. Insulin [place], Disposable, (COMFORT EZ PEN NEEDLES) 29 gauge [...] Injection. Mark Godinez MD documented in this encounterOur [facility]cy Hospital10-06-2023 Miscellaneous Notes* Telephone Encounter - Valery [...] than patient: mendez Maciel Best contact number: [phone] Thank you, Rebecca Segundo January 06, 2023 10:09 AM documented in this encounterOur [facility]cy Hospital09-22-2023 Miscellaneous Notes* Telephone Encounter - JanesKenya - 12/23/2022 4:50 PM EDT Confirmation number: [id number] Consult to Pain Management Gave patient phone number to call as well, documented in this encounterOur Lady Of [facility]cy Hospital09-22-2023 History of Present illness Narrative* Belgica Vega, - 12/23/2022 3:43 PM EDT Images from the original note were not included. Belgica Vega [address] [facility] [address] [place] [address] Visit Date: December 23, 2022 Mr.Jim Najma Ashton Date of : 1960 MRN/E #: [id number] History of Present Illness José Manuel Ashton [...] it.States sometimes takes trulicity.Patient to see new sausage linker in [place] March 21, 2023. Pt indicates Janie Nieves in [place], he [place]'t want to go to [place]. [...] 01/04/23. Per chart review patient to see [place] [facility] December 29, 2022 Patient has history [...] of precordial pain, OTT, hypertension. Patient saw bedspread cutter hand October 13, 2022..Patient had stress test patient [...] spine, referred him to spine and pain [place].. Patient seeing pain management patient to see [...] MRI pelvis 08/11/21:Results MRI PELVIS WO/W IVCON (Acc#[id number]) (Order [id number]) Patient Info Patient Name Sex José Manuel Holm ([id number]) Male 1960 08/11/2021 5:06 PM - Radiology, [place] In Impression IMPRESSION: Suggestion of postoperative changes in the mid rectal wall. No tumor was identified on the preoperative exam, no suspicious lesion on this exam. No pelvic lymphadenopathy. Pt had pelvic xr 07/01/22: Results XR PELVIS 1V AP (Order [id number]) Patient Info Patient Name Sex José Manuel Holm ([id number]) Male 1960 07/01/2022 1:45 PM - Binh [...] quittin.7 Smokeless tobacco: Never Tobacco comments: Smokes [place] Vaping Use Vaping Use: Never used Substance [...] 8 hours as needed for nausea/vomiting. Insulin [place], Disposable, (COMFORT EZ PEN NEEDLES) 29 gauge [...] to the nearest ED. documented in this encounterOur Lady Of [facility]cy Hospital08-31-2023 History of Present illness Narrative* Dannie Kincaid Lie Detector Operator - 12/01/2022 10:00 AM EDT Lexiscan nuclear stress test completed. Patient verbalized understanding of test and pain scale. IVstarted by nursing staff prior to testing and removed by nursing staff at test end. documented in this encounterOur Lady Of Mercy Hospital08-31-2023 Miscellaneous Notes* Addendum Note - Celena Rendon RN - 12/01/2022 9:00 AM EDTEncounter addended by: Celena Rendon RN on: 12/01/2022 11:21 AM Actions taken: Flowsheet accepted, MAR administration accepted documented in this encounterOur Lady Of Mercy Hospital08-24-2023 History of Present illness Narrative* Jen [...] Weight mgmt/activity No change (09/23/2020) Concerns: N/A Surgical Services Director plan for next outreach: Will follow up in about a month. Signature Jen Bergman RN November 24, 2022 documented in this encounterOur Lady Of Mercy Hospital08-16-2023 Miscellaneous Notes* Telephone Encounter - Liyah [...] with any information. Was Patient Referred to [facility]/Seek Emergency Treatment (Y/N): N Did Patient Agree (Y/N): N/A Was An Attempt Made To Transfer The Patient To The Office (Y/N): N Were You Able To Reach Someone At The Office (Y/N): N/A If Yes - Patient Was Transferred To (Caregivers Name): N/A If No - Which [facility] Leadership Spiral Gear Generator Did You Speak With Regarding This Patient: N/A Was an appointment scheduled (Y/N): N Reason patient was requesting visit (RFV/signs and symptoms/diagnosis) : Medication Refill Request Person calling if other than patient: Self Return call to if other than patient: Self Best contact number: [phone] Thank you, Wilfredo Gabbie November 14, 2022 1:56 PM documented in this encounterOur Lady Of Mercy Hospital08-10-2023 Miscellaneous Notes* Telephone Encounter - Candice Braun MD - 11/10/2022 7:00 AM EDT Reviewed all notes and labs. Patient of SOLUTIONS ANALYST Janie Dsouzaney in [place], last seen on 10/30/2020. He is already an established patient in [facility] practice. Of note, he was a no-show in February 2022. Plan: Please refer patient back to [place] office to his original provider since he [...] 09, 2022 2:16 PM documented in this encounterOur Lady Of Mercy Hospital08-07-2023 Miscellaneous Notes* Telephone Encounter - Griselda Mayfield - 11/07/2022 8:01 AM EDT Consult to Neurology Confirmation number: [id number] documented in this encounterOur Lady Of Mercy Hospital08-04-2023 Miscellaneous Notes* Telephone Encounter - Kenya Marrero - 11/04/2022 4:15 PM EDT Confirmation number: [id number] Consult to Dermatology documented in this encounterOur Lady Of Mercy Hospital08-04-2023 Miscellaneous Notes* Telephone Encounter - Kenya Marrero - 11/04/2022 3:20 PM EDT Confirmation number: [id number] Consult to Endocrinology documented in this encounterOur Lady Of Mercy Hospital08-04-2023 History of Present illness Narrative* Belgica Vega DO - 11/04/2022 3:04 PM EDT Images from the original note were not included. Belgica Vega [address] [address] Visit Date: November 04, 2022 Mr.Jim Najma Ashton Date of : 1960 MRN/E #: [id number] History of Present Illness José Manuel Ashton [...] Pt didn't want to see derm in [place] or [place]. Wasn't referred to [place]. Patient does have history of diabetes and [...] Dr. Baig, doesn't want to go to [place]. Patient has history of rectal cancer. Patient is status post colonoscopy October 24, [address] Ahmadi.Number of precancerous polyps were found on this examination and we shouldrepeat the colonoscopy in 1 year. Artem Ahmadi MD October 28, 2022 10:05 AM Patient has history of precordial pain, OTT, hypertension. Patient saw bedspread cutter hand October 13, 2022. Lexiscan nuclear stress test has been ordered. Per note patient was asked to get referral for sausage linker and dietitian to aggressively get his diabetes [...] quittin.5 Smokeless tobacco: Never Tobacco comments: Smokes [place] Vaping Use Vaping Use: Never used Substance [...] DAILY (6 AM). 30 tablet 2 Insulin [place], Disposable, (COMFORT EZ PEN NEEDLES) 29 gauge [...] Monocytes % 11/01/2022 8.1 % Final Abs Murray 11/01/2022 0.54 <0.87 k/uL Final Eosinophils % [...] Desk Reference: National Heart, Lung, and Blood [place]. National Institutes of Health. 2001: NIH Publication [...] (H) 74 - 99 mg/dL Final The [place] Diabetes Association (ADA) provides guidance for cutoff [...] Standards of Medical Care in Diabetes 2016, [place] Diabetes Association. Diabetes Care. 2016.39(Suppl 1). BUN [...] 13.6 (H) 4.3 - 5.6 % Final [place] Diabetes Association guidelines indicate that patients with HgbA1c in the range 5.7-6.4% are at increased risk for development of diabetes, and intervention by lifestyle modification may be beneficial. HgbA1c greater or equal to 6.5% is considered diagnostic of diabetes. Estimated Average Glucose 11/01/2022 344 mg/dL Final eAG: (Estimated average glucose) is a calculated value from HgbA1c and is human resources representative of the average blood glucose level [...] to the nearest ED. documented in this encounterOur Lady Of Mercy Hospital08-02-2023 Miscellaneous Notes* Telephone Encounter - Belgica Vega DO - 11/02/2022 7:44 PM EDT Please notify patient received lab, low-fat low-cholesterol diet recommended. Low-carb low concentrated sweets diet recommended, A1c has increased to 13.6 Can discuss results at appointment Thank you, Belgica Vega D.O. documented in this encounterOur Lady Of Mercy Hospital08-02-2023 History of Present illness Narrative* Noé [...] (no units) Date Value 09/15/2022 1+ Specific [place], Ur (no units) Date Value 09/15/2022 1.020 [...] mouth once daily.^Disp: 90 capsule^Rfl: 0 Insulin [place], Disposable, (COMFORT EZ PEN NEEDLES) 29 gauge [...] quittin.5 Smokeless tobacco: Never Tobacco comments: Smokes [place] Vaping Use Vaping Use: Never used Substance [...] neg 02/17/2020 PSA 0.75, no Fhx of Plant Engineering Manager Assessment and Plan: Microhematuria- prior w/u neg, [...] cont meds for now documented in this encounterOur Lady Of Mercy Hospital08-02-2023 Miscellaneous Notes* Telephone Encounter - Hazel [...] 28, 2022 10:05 AM documented in this encounterOur [facility] Of [facility] Miscellaneous Notes* Telephone Encounter - Jen [...] Thanks. Jen Bergman RN documented in this encounterOur Lady Of Mercy [facility]08-01-[facility]23 History of Present illness Narrative* Jen [...] Weight mgmt/activity No change (09/23/2020) Concerns: N/A Surgical Services Director plan for next 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 Signature Jen Bergman RN November 01, 2022 documented in this encounterOur Lady Of Mercy [facility]07-14-2023 Miscellaneous Notes* Telephone Encounter - [place] [...] advise. Denia Anders LPN documented in this encounterOur Lady Of Mercy [facility]07-13-2023 History of Present illness Narrative* Sukumar [...] quittin.5 Smokeless tobacco: Never Tobacco comments: Smokes [place] Vaping Use Vaping Use: Never used Substance [...] tablet by mouth DAILY (6 AM). Insulin [place], Disposable, (COMFORT EZ PEN NEEDLES) 29 gauge [...] to get a referral to see an sausage linker and a dietitian to aggressively get his [...] accordingly. Sukumar Toney MD documented in this encounterOur Lady Of Mercy [facility]07-13-2023 Nurse Note* Lulu Owen MA - 10/13/2022 9:37 AM EDT Patient has no cardiac complaints today. Lulu Owen CMA documented in this encounterOur Lady Of Mercy [facility]07-12-2023 History of Present illness Narrative* Jen [...] Weight mgmt/activity No change (09/23/2020) Concerns: N/A Surgical Services Director plan for next 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 Signature Jen Bergman RN October 12, 2022 documented in this encounterOur Lady Of Mercy [facility]07-10-2023 History of Present illness Narrative* Mark [...] quittin.5 Smokeless tobacco: Never Tobacco comments: Smokes [place] Vaping Use Vaping Use: Never used Substance [...] 8 hours as needed for nausea/vomiting. Insulin [place], Disposable, (COMFORT EZ PEN NEEDLES) 29 gauge [...] which may represent strain or possibly myositis. Filler Blender: [facility] Transcribe Date/Time: Sep 01 2022 7:57A Dictated by : DOREEN GRAJEDA MD This examination was interpreted and the report reviewed and electronically signed by: DOREEN GRAJEDA MD on Sep 01 2022 8:08AM EST Results-Findings * * *Final Report* * * DATE OF EXAM: Aug 30 2022 10:22AM [facility] 0168 - MRI ARTHROGRAM HIP LT / PROCEDURE REASON: multiple diagnoses * * * * Physician Interpretation * * * * LEFT HIP MRI ARTHROGRAM CLINICAL INDICATION: Left hip pain. Concern for labral tear or flexor tendon injury. COMPARISON: MRI left hip 09/09/2020 TECHNIQUE: Large ilxrb-um-amwt coronal T1, axial and coronal STIR sequences of the pelvis and both hips. Small wongr-zw-ttfy coronal, sagittal and oblique axial fat saturated [...] labrum is limited due to the large oozgb-yn-dcqs. Sacroiliac joints and symphysis pubis are maintained. [...] bleeding, clots, bleeding disorders. documented in this encounterOur Lady Of Mercy Hospital07-03-2023 History of Present illness Narrative* Jen [...] Weight mgmt/activity No change (09/23/2020) Concerns: N/A Surgical Services Director plan for next outreach: Will follow up next wk. Chetan Bergman RN October 03, 2022 documented in this encounterOur Lady Of Mercy Hospital06-29-2023 History of Present illness Narrative* Jen [...] Weight mgmt/activity No change (09/23/2020) Concerns: N/A Surgical Services Director plan for next outreach: Will follow up next wk. Chetan Bergman RN September 29, 2022 documented in this encounterOur Lady Of Mercy Hospital06-28-2023 Miscellaneous Notes* Telephone Encounter - Kenya Marrero - 09/28/2022 12:22 PM EDT Confirmation number: [id number] Consult to Cardiology Confirmation number: [id number] Consult to Dermatology Confirmation number: [id number] Consult to Nephrology documented in this encounterOur Lady Of Mercy Hospital06-28-2023 History of Present illness Narrative* [place] Vega DO - 09/28/2022 11:06 AM EDT Transitional Care Management TCM Eligibility Documentation The following information was gathered during the initial Patient Outreach Encounter. Date of Outreach: 09/19/2022 Outreach Attempt 1: Contact Made Date of Discharge 09/16/2022 Some recent data might be hidden Summary Discharged from: [facility] Admit Date: September 14, 2022, discharged [...] lumbar spine:Results MRI LUMBAR SPINE WO IVCON (Acc#[id number]) (Order [id number]) Patient Info Patient Name Sex José Manuel Ashton ([id number]) Male 1960 09/15/2022 4:43 PM - Radiology, [...] Diabetes, general surgery visit documented in this encounterOur Lady Of Mercy Hospital06-23-2023 History of Present illness Narrative* Binh [...] quittin.4 Smokeless tobacco: Never Tobacco comments: Smokes [place] Vaping Use Vaping Use: Never used Substance [...] 8 hours as needed for nausea/vomiting. Insulin [place], Disposable, (COMFORT EZ PEN NEEDLES) 29 gauge [...] needed. Binh Lake DO documented in this encounterOur Lady Of Mercy Hospital06-16-2023 History of Present illness Narrative* Meera [...] 10/21/2022 final post op documented in this encounterOur Lady Of Mercy Hospital06-16-2023 Instructions* Patient Instructions* Meera Contreras OD - 09/16/2022 2:19 PM EDT RIGHT EYE: Stop Ciprofloxacin (flores) Continue Ketorolac (rasmussen) and Prednisolone (pink) 3 times daily x 1 week then 2 times daily x 1 week then 1 time daily x 1 week then stop STOP LEFT EYE drops documented in this encounterOur Lady Of Mercy Hospital06-08-2023 History of Past illness Narrative* Problem Noted Date Resolved Date Nuclear senile cataract of right eye 09/08/2022 09/08/2022 Nuclear sclerotic cataract of left eye 3 08/18/2022 Abdominal discomfort 01/18/2022 01/19/2022 Nuclear senile cataract of both eyes 11/05/2021 09/09/2022 Microscopic hematuria 03/08/2021 01/17/2022 Weakness 05/05/2020 06/15/2020 Decreased mobility and endurance 05/05/2020 06/15/2020 documented as of this encounter (statuses as of 09/16/2022) [facility] Narrative* Problem Noted Date Resolved Date Nuclear senile cataract of right eye 09/08/2022 09/08/2022 Nuclear sclerotic cataract of left eye 3 08/18/2022 Abdominal discomfort 01/18/2022 01/19/2022 Nuclear senile cataract of both eyes 11/05/2021 09/09/2022 Microscopic hematuria 03/08/2021 01/17/2022 Weakness 05/05/2020 06/15/2020 Decreased mobility and endurance 05/05/2020 06/15/2020 documented as of this encounter (statuses as of 09/28/2022) [facility] Narrative* Problem Noted Date Resolved Date Nuclear senile cataract of right eye 09/08/2022 09/08/2022 Nuclear sclerotic cataract of left eye 3 08/18/2022 Abdominal discomfort 01/18/2022 01/19/2022 Nuclear senile cataract of both eyes 11/05/2021 09/09/2022 Microscopic hematuria 03/08/2021 01/17/2022 Weakness 05/05/2020 06/15/2020 Decreased mobility and endurance 05/05/2020 06/15/2020 documented as of this encounter (statuses as of 09/28/2022) [facility] Narrative* Problem Noted Date Resolved Date Nuclear senile cataract of right eye 09/08/2022 09/08/2022 Nuclear sclerotic cataract of left eye 3 08/18/2022 Abdominal discomfort 01/18/2022 01/19/2022 Nuclear senile cataract of both eyes 11/05/2021 09/09/2022 Microscopic hematuria 03/08/2021 01/17/2022 Weakness 05/05/2020 06/15/2020 Decreased mobility and endurance 05/05/2020 06/15/2020 documented as of this encounter (statuses as of 09/29/2022) [facility] Narrative* Problem Noted Date Resolved Date Nuclear senile cataract of right eye 09/08/2022 09/08/2022 Nuclear sclerotic cataract of left eye 3 08/18/2022 Abdominal discomfort 01/18/2022 01/19/2022 Nuclear senile cataract of both eyes 11/05/2021 09/09/2022 Microscopic hematuria 03/08/2021 01/17/2022 Weakness 05/05/2020 06/15/2020 Decreased mobility and endurance 05/05/2020 06/15/2020 documented as of this encounter (statuses as of 09/30/2022) [facility] Narrative* Problem Noted Date Resolved Date Nuclear senile cataract of right eye 09/08/2022 09/08/2022 Nuclear sclerotic cataract of left eye 3 08/18/2022 Abdominal discomfort 01/18/2022 01/19/2022 Nuclear senile cataract of both eyes 11/05/2021 09/09/2022 Microscopic hematuria 03/08/2021 01/17/2022 Weakness 05/05/2020 06/15/2020 Decreased mobility and endurance 05/05/2020 06/15/2020 documented as of this encounter (statuses as of 10/04/2022) [facility] Narrative* Problem Noted Date Diagnosed Date Resolved Date Nuclear senile cataract of right eye 09/08/2022 09/08/2022 Nuclear sclerotic cataract of left eye 08/18/2022 08/18/2022 Abdominal discomfort 01/18/2022 022 Nuclear senile cataract of both eyes 11/05/2021 09/09/2022 Microscopic hematuria 03/08/20212021 Weakness 05/05/2020 06/15/2020 Decreased mobility and endurance 05/05/2020 06/15/2020 documented as of this encounter (statuses as of 10/11/2022) [facility] Narrative* Problem Noted Date Diagnosed Date Resolved Date Nuclear senile cataract of right eye 09/08/2022 09/08/2022 Nuclear sclerotic cataract of left eye 08/18/2022 08/18/2022 Abdominal discomfort 01/18/2022 022 Nuclear senile cataract of both eyes 11/05/2021 09/09/2022 Microscopic hematuria 03/08/20212021 Weakness 05/05/2020 06/15/2020 Decreased mobility and endurance 05/05/2020 06/15/2020 documented as of this encounter (statuses as of 10/13/2022) [facility] Narrative* Problem Noted Date Diagnosed Date Resolved Date Nuclear senile cataract of right eye 09/08/2022 09/08/2022 Nuclear sclerotic cataract of left eye 08/18/2022 08/18/2022 Abdominal discomfort 01/18/2022 022 Nuclear senile cataract of both eyes 11/05/2021 09/09/2022 Microscopic hematuria 03/08/20212021 Weakness 05/05/2020 06/15/2020 Decreased mobility and endurance 05/05/2020 06/15/2020 documented as of this encounter (statuses as of 10/13/2022) [facility] Narrative* Problem Noted Date Diagnosed Date Resolved Date Nuclear senile cataract of right eye 09/08/2022 09/08/2022 Nuclear sclerotic cataract of left eye 08/18/2022 08/18/2022 Abdominal discomfort 01/18/2022 022 Nuclear senile cataract of both eyes 11/05/2021 09/09/2022 Microscopic hematuria 03/08/20212021 Weakness 05/05/2020 06/15/2020 Decreased mobility and endurance 05/05/2020 06/15/2020 documented as of this encounter (statuses as of 10/15/2022) [facility] Narrative* Problem Noted Date Diagnosed Date Resolved Date Nuclear senile cataract of right eye 09/08/2022 09/08/2022 Nuclear sclerotic cataract of left eye 08/18/2022 08/18/2022 Abdominal discomfort 01/18/2022 022 Nuclear senile cataract of both eyes 11/05/2021 09/09/2022 Microscopic hematuria 03/08/20212021 Weakness 05/05/2020 06/15/2020 Decreased mobility and endurance 05/05/2020 06/15/2020 documented as of this encounter (statuses as of 11/01/2022) [facility] Narrative* Problem Noted Date Diagnosed Date Resolved Date Nuclear senile cataract of right eye 09/08/2022 09/08/2022 Nuclear sclerotic cataract of left eye 08/18/2022 08/18/2022 Abdominal discomfort 01/18/20222 022 Nuclear senile cataract of both eyes 11/05/2021 09/09/2022 Microscopic hematuria 03/08/20212021 Weakness 05/05/2020 06/15/2020 Decreased mobility and endurance 05/05/2020 06/15/2020 documented as of this encounter (statuses as of 11/02/2022) [facility] Narrative* Problem Noted Date Diagnosed Date Resolved Date Nuclear senile cataract of right eye 09/08/2022 09/08/2022 Nuclear sclerotic cataract of left eye 08/18/2022 08/18/2022 Abdominal discomfort 01/18/20222 022 Nuclear senile cataract of both eyes 11/05/2021 09/09/2022 Microscopic hematuria 03/08/20212021 Weakness 05/05/2020 06/15/2020 Decreased mobility and endurance 05/05/2020 06/15/2020 documented as of this encounter (statuses as of 11/03/2022) [facility] Narrative* Problem Noted Date Diagnosed Date Resolved Date Nuclear senile cataract of right eye 09/08/2022 09/08/2022 Nuclear sclerotic cataract of left eye 08/18/2022 08/18/2022 Abdominal discomfort 01/18/2022 022 Nuclear senile cataract of both eyes 11/05/2021 09/09/2022 Microscopic hematuria 03/08/20212021 Weakness 05/05/2020 06/15/2020 Decreased mobility and endurance 05/05/2020 06/15/2020 documented as of this encounter (statuses as of 11/03/2022) [facility] Narrative* Problem Noted Date Diagnosed Date Resolved Date Nuclear senile cataract of right eye 09/08/2022 09/08/2022 Nuclear sclerotic cataract of left eye 08/18/2022 08/18/2022 Abdominal discomfort 01/18/2022 022 Nuclear senile cataract of both eyes 11/05/2021 09/09/2022 Microscopic hematuria 03/08/20212021 Weakness 05/05/2020 06/15/2020 Decreased mobility and endurance 05/05/2020 06/15/2020 documented as of this encounter (statuses as of 11/04/2022) [facility] Narrative* Problem Noted Date Diagnosed Date Resolved Date Nuclear senile cataract of right eye 09/08/2022 09/08/2022 Nuclear sclerotic cataract of left eye 08/18/2022 08/18/2022 Abdominal discomfort 01/18/2022 022 Nuclear senile cataract of both eyes 11/05/2021 09/09/2022 Microscopic hematuria 03/08/20212021 Weakness 05/05/2020 06/15/2020 Decreased mobility and endurance 05/05/2020 06/15/2020 documented as of this encounter (statuses as of 11/05/2022) [facility] Narrative* Problem Noted Date Diagnosed Date Resolved Date Nuclear senile cataract of right eye 09/08/2022 09/08/2022 Nuclear sclerotic cataract of left eye 08/18/2022 08/18/2022 Abdominal discomfort 01/18/2022 022 Nuclear senile cataract of both eyes 11/05/2021 09/09/2022 Microscopic hematuria 03/08/20212021 Weakness 05/05/2020 06/15/2020 Decreased mobility and endurance 05/05/2020 06/15/2020 documented as of this encounter (statuses as of 11/05/2022) [facility] Narrative* Problem Noted Date Diagnosed Date Resolved Date Nuclear senile cataract of right eye 09/08/2022 09/08/2022 Nuclear sclerotic cataract of left eye 08/18/2022 08/18/2022 Abdominal discomfort 01/18/2022 022 Nuclear senile cataract of both eyes 11/05/2021 09/09/2022 Microscopic hematuria 03/08/20212021 Weakness 05/05/2020 06/15/2020 Decreased mobility and endurance 05/05/2020 06/15/2020 documented as of this encounter (statuses as of 11/07/2022) [facility] Narr[facility]* Problem Noted Date Diagnosed Date Resolved Date Nuclear senile cataract of right eye 09/08/2022 09/08/2022 Nuclear sclerotic cataract of left eye 08/18/2022 08/18/2022 Abdominal discomfort 01/18/2022 022 Nuclear senile cataract of both eyes 11/05/2021 09/09/2022 Microscopic hematuria 03/08/20212021 Weakness 05/05/2020 06/15/2020 Decreased mobility and endurance 05/05/2020 06/15/2020 documented as of this encounter (statuses as of 11/07/2022) [facility] Narr[facility]* Problem Noted Date Diagnosed Date Resolved Date Nuclear senile cataract of right eye 09/08/2022 09/08/2022 Nuclear sclerotic cataract of left eye 08/18/2022 08/18/2022 Abdominal discomfort 01/18/2022 022 Nuclear senile cataract of both eyes 11/05/2021 09/09/2022 Microscopic hematuria 03/08/20212021 Weakness 05/05/2020 06/15/2020 Decreased mobility and endurance 05/05/2020 06/15/2020 documented as of this encounter (statuses as of 11/10/2022) [facility] Narrative* Problem Noted Date Diagnosed Date Resolved Date Nuclear senile cataract of right eye 09/08/2022 09/08/2022 Nuclear sclerotic cataract of left eye 08/18/2022 08/18/2022 Abdominal discomfort 01/18/2022 022 Nuclear senile cataract of both eyes 11/05/2021 09/09/2022 Microscopic hematuria 03/08/20212021 Weakness 05/05/2020 06/15/2020 Decreased mobility and endurance 05/05/2020 06/15/2020 documented as of this encounter (statuses as of 11/16/2022) [facility]* Problem Noted Date Diagnosed Date Resolved Date Nuclear senile cataract of right eye 09/08/2022 09/08/2022 Nuclear sclerotic cataract of left eye 08/18/2022 08/18/2022 Abdominal discomfort 01/18/2022 022 Nuclear senile cataract of both eyes 11/05/2021 09/09/2022 Microscopic hematuria 03/08/20212021 Weakness 05/05/2020 06/15/2020 Decreased mobility and endurance 05/05/2020 06/15/2020 documented as of this encounter (statuses as of 11/22/2022) [facility]* Problem Noted Date Diagnosed Date Resolved Date Nuclear senile cataract of right eye 09/08/2022 09/08/2022 Nuclear sclerotic cataract of left eye 08/18/2022 08/18/2022 Abdominal discomfort 01/18/2022 022 Nuclear senile cataract of both eyes 11/05/2021 09/09/2022 Microscopic hematuria 03/08/20212021 Weakness 05/05/2020 06/15/2020 Decreased mobility and endurance 05/05/2020 06/15/2020 documented as of this encounter (statuses as of 11/25/2022) [facility]* Problem Noted Date Diagnosed Date Resolved Date Nuclear senile cataract of right eye 09/08/2022 09/08/2022 Nuclear sclerotic cataract of left eye 08/18/2022 08/18/2022 Abdominal discomfort 01/18/2022 022 Nuclear senile cataract of both eyes 11/05/2021 09/09/2022 Microscopic hematuria 03/08/20212021 Weakness 05/05/2020 06/15/2020 Decreased mobility and endurance 05/05/2020 06/15/2020 documented as of this encounter (statuses as of 2022) [facility]* Problem Noted Date Diagnosed Date Resolved Date Nuclear senile cataract of right eye 09/08/2022 09/08/2022 Nuclear sclerotic cataract of left eye 08/18/2022 08/18/2022 Abdominal discomfort 01/18/2022 022 Nuclear senile cataract of both eyes 11/05/2021 09/09/2022 Microscopic hematuria 03/08/20212021 Weakness 05/05/2020 06/15/2020 Decreased mobility and endurance 05/05/2020 06/15/2020 documented as of this encounter (statuses as of 2022) [facility]* Problem Noted Date Diagnosed Date Resolved Date Nuclear senile cataract of right eye 09/08/2022 09/08/2022 Nuclear sclerotic cataract of left eye 08/18/2022 08/18/2022 Abdominal discomfort 01/18/2022 022 Nuclear senile cataract of both eyes 11/05/2021 09/09/2022 Microscopic hematuria 03/08/20212021 Weakness 05/05/2020 06/15/2020 Decreased mobility and endurance 05/05/2020 06/15/2020 documented as of this encounter (statuses as of 12/24/2022) [facility]* Problem Noted Date Diagnosed Date Resolved Date Nuclear senile cataract of right eye 09/08/2022 09/08/2022 Nuclear sclerotic cataract of left eye 08/18/2022 08/18/2022 Abdominal discomfort 01/18/2022 022 Nuclear senile cataract of both eyes 11/05/2021 09/09/2022 Microscopic hematuria 03/08/20212021 Weakness 05/05/2020 06/15/2020 Decreased mobility and endurance 05/05/2020 06/15/2020 documented as of this encounter (statuses as of 12/24/2022) [facility]* Problem Noted Date Diagnosed Date Resolved Date Nuclear senile cataract of right eye 09/08/2022 09/08/2022 Nuclear sclerotic cataract of left eye 08/18/2022 08/18/2022 Abdominal discomfort 01/18/2022 022 Nuclear senile cataract of both eyes 11/05/2021 09/09/2022 Microscopic hematuria 03/08/20212021 Weakness 05/05/2020 06/15/2020 Decreased mobility and endurance 05/05/2020 06/15/2020 documented as of this encounter (statuses as of 01/07/2023) [facility]* Problem Noted Date Diagnosed Date Resolved Date Nuclear senile cataract of right eye 09/08/2022 09/08/2022 Nuclear sclerotic cataract of left eye 08/18/2022 08/18/2022 Abdominal discomfort 01/18/2022 022 Nuclear senile cataract of both eyes 11/05/2021 09/09/2022 Microscopic hematuria 03/08/20212021 Weakness 05/05/2020 06/15/2020 Decreased mobility and endurance 05/05/2020 06/15/2020 documented as of this encounter (statuses as of 01/24/2023) [facility]* Problem Noted Date Diagnosed Date Resolved Date Nuclear senile cataract of right eye 09/08/2022 09/08/2022 Nuclear sclerotic cataract of left eye 08/18/2022 08/18/2022 Abdominal discomfort 01/18/2022 022 Nuclear senile cataract of both eyes 11/05/2021 09/09/2022 Microscopic hematuria 03/08/20212021 Weakness 05/05/2020 06/15/2020 Decreased mobility and endurance 05/05/2020 06/15/2020 documented as of this encounter (statuses as of 01/27/2023) [facility]* Problem Noted Date Diagnosed Date Resolved Date Nuclear senile cataract of right eye 09/08/2022 09/08/2022 Nuclear sclerotic cataract of left eye 08/18/2022 08/18/2022 Abdominal discomfort 01/18/2022 022 Nuclear senile cataract of both eyes 11/05/2021 09/09/2022 Microscopic hematuria 03/08/20212021 Weakness 05/05/2020 06/15/2020 Decreased mobility and endurance 05/05/2020 06/15/2020 documented as of this encounter (statuses as of 03/07/2023) [facility]* Problem Noted Date Diagnosed Date Resolved Date Nuclear senile cataract of right eye 09/08/2022 09/08/2022 Nuclear sclerotic cataract of left eye 08/18/2022 08/18/2022 Abdominal discomfort 01/18/2022 022 Nuclear senile cataract of both eyes 11/05/2021 09/09/2022 Microscopic hematuria 03/08/20212021 Weakness 05/05/2020 06/15/2020 Decreased mobility and endurance 05/05/2020 06/15/2020 documented as of this encounter (statuses as of 05/12/2023) [facility]* Problem Noted Date Diagnosed Date Resolved Date Nuclear senile cataract of right eye 09/08/2022 09/08/2022 Nuclear sclerotic cataract of left eye 08/18/2022 08/18/2022 Abdominal discomfort 01/18/2022 022 Nuclear senile cataract of both eyes 11/05/2021 09/09/2022 Microscopic hematuria 03/08/20212021 Weakness 05/05/2020 06/15/2020 Decreased mobility and endurance 05/05/2020 06/15/2020 documented as of this encounter (statuses as of 05/19/2023) [facility]* Problem Noted Date Diagnosed Date Resolved Date Nuclear senile cataract of right eye 09/08/2022 09/08/2022 Nuclear sclerotic cataract of left eye 08/18/2022 08/18/2022 Abdominal discomfort 01/18/2022 022 Nuclear senile cataract of both eyes 11/05/2021 09/09/2022 Microscopic hematuria 03/08/20212021 Weakness 05/05/2020 06/15/2020 Decreased mobility and endurance 05/05/2020 06/15/2020 documented as of this encounter (statuses as of 05/23/2023) [facility]* Problem Noted Date Diagnosed Date Resolved Date Nuclear senile cataract of right eye 09/08/2022 09/08/2022 Nuclear sclerotic cataract of left eye 08/18/2022 08/18/2022 Abdominal discomfort 01/18/2022 022 Nuclear senile cataract of both eyes 11/05/2021 09/09/2022 Microscopic hematuria 03/08/20212021 Weakness 05/05/2020 06/15/2020 Decreased mobility and endurance 05/05/2020 06/15/2020 documented as of this encounter (statuses as of 05/23/2023) [facility] Miscellaneous Notes* Telephone Encounter - Simeon Vásquez - 09/05/2022 10:03 AM EDT Called and informed patient to arrive at [address] [place] [address], [place] [id number] at 11:45 am for 09/08/22 surgerywith Renetta Meza MD. Explained that patient is not to arrive any earlier. Also reminded patient to refrain from eating or drinking for 8 hours prior to arrival for surgery, except for up to 12 oz of clear liquids up until 09:45 am, and to begin eyedrops in the right eye on09/06/22. Informed that [employer] and text messages do not contact them with the arrival time for surgery. If they receive a message from [employer], or a text to confirm an appointment, they are to make sure of the date for the appointment. Patient's sister states understanding and is agreeable. documented in this encounterOur [facility]06-02-[facility] History of Present illness Narrative* Binh [...] quittin.4 Smokeless tobacco: Never Tobacco comments: Smokes [place] Vaping Use Vaping Use: Never used Substance [...] 8 hours as needed for nausea/vomiting. Insulin [place], Disposable, (COMFORT EZ PEN NEEDLES) 29 gauge [...] him to see the spine and pain Goldonna to discuss possible medications to help his intense chronic pain. I did give him 1 week of Percocet to try to help this pain. Total of half hour spent with this patient of which greater than 50% time spent in direct patient contact and coordination of care. Bnih Lake DO documented in this encounterOur Lady Of Mercy [facility]05-30-2023 History of Present illness Narrative* Roz [...] 30, 2022 10:19 AM documented in this encounterOur Lady Of Mercy Hospital05-30-2023 Surgical operation note* Brief Op Note - Lamonte Curtis MD, - 08/30/2022 8:17 AM EDT S/p successful left hip injection for magnetic resonance arthrogram. EBL < 1 cc. No immediate complication. documented in this encounterOur Lady Of Mercy Hospital05-18-2023 History of Past illness Narrative* Problem Noted Date Resolved Date Nuclear sclerotic cataract of left eye 3 08/18/2022 Abdominal discomfort 01/18/2022 01/19/2022 Microscopic hematuria 03/08/2021 01/17/2022 Weakness 05/05/2020 06/15/2020 Decreased mobility and endurance 05/05/2020 06/15/2020 documented as of this encounter (statuses as of 08/31/2022) [facility] of Past illness Narrative* Problem Noted Date Resolved Date Nuclear sclerotic cataract of left eye 3 08/18/2022 Abdominal discomfort 01/18/2022 01/19/2022 Microscopic hematuria 03/08/2021 01/17/2022 Weakness 05/05/2020 06/15/2020 Decreased mobility and endurance 05/05/2020 06/15/2020 documented as of this encounter (statuses as of 08/31/2022) [facility] History of Past illness Narrative* Problem Noted Date Resolved Date Nuclear sclerotic cataract of left eye 3 08/18/2022 Abdominal discomfort 01/18/2022 01/19/2022 Microscopic hematuria 03/08/2021 01/17/2022 Weakness 05/05/2020 06/15/2020 Decreased mobility and endurance 05/05/2020 06/15/2020 documented as of this encounter (statuses as of 08/31/2022) [facility] History of Past illness Narrative* Problem Noted Date Resolved Date Nuclear sclerotic cataract of left eye 3 08/18/2022 Abdominal discomfort 01/18/2022 01/19/2022 Microscopic hematuria 03/08/2021 01/17/2022 Weakness 05/05/2020 06/15/2020 Decreased mobility and endurance 05/05/2020 06/15/2020 documented as of this encounter (statuses as of 09/02/2022) [facility] of Past illness Narrative* Problem Noted Date Resolved Date Nuclear sclerotic cataract of left eye 3 08/18/2022 Abdominal discomfort 01/18/2022 01/19/2022 Microscopic hematuria 03/08/2021 01/17/2022 Weakness 05/05/2020 06/15/2020 Decreased mobility and endurance 05/05/2020 06/15/2020 documented as of this encounter (statuses as of 09/02/2022) [facility] History of Past illness Narrative* Problem Noted Date Resolved Date Nuclear sclerotic cataract of left eye 3 08/18/2022 Abdominal discomfort 01/18/2022 01/19/2022 Microscopic hematuria 03/08/2021 01/17/2022 Weakness 05/05/2020 06/15/2020 Decreased mobility and endurance 05/05/2020 06/15/2020 documented as of this encounter (statuses as of 09/05/2022) [facility] Miscellaneous Notes* Telephone Encounter - Meche Rowland - 08/15/2022 11:21 AM EDT Called and informed patient to arrive at [address] [place] [address] at 7:40 am for 08/18/22 surgery with Renetta Meza MD. Also reminded patient to refrain from eating or drinking for 8 hours prior to arrival for surgery, and to begin eyedrops in the left eye on 08/16/22. Patient states understanding and is agreeable. documented in this encounterOur Lady Of Mercy Hospital05-12-2023 History of Present illness Narrative* Belgica Vega, DO - 08/12/2022 3:46 PM EDT Images from the original note were not included. [facility] Primary [facility] Belgica Vega [address] [place] [address] [facility] Visit Date: August 12, 2022 Mr.Jim Najma Ashton Date of : 1960 MRN/E #: [id number] SUBJECTIVE: José Manuel Ashton is a 61 [...] (A) 4.2 - 5.6 % Final Comment: Location:[facility], [address] [place] [address], [facility] Point of care (POC) Hemoglobin A1c [...] specific diabetes management situations: The POC device palliative care nurse provides a normal range of 4.2% to 6.5% for the HGBA1C POC test. However, the [place] Diabetes Association guidelines indicate that patients with [...] quittin.3 Smokeless tobacco: Never Tobacco comments: Smokes [place] Vaping Use Vaping Use: Never used Substance [...] DAILY (6 AM). 30 tablet 2 Insulin [place], Disposable, (COMFORT EZ PEN NEEDLES) 29 gauge [...] to the nearest ED. documented in this encounterOur Lady Of Mercy Hospital05-09-2023 Miscellaneous Notes* Telephone Encounter - Maria D Evgeny - 08/09/2022 1:13 PM EDT Called patient again, left voicemail that he has an appointment tomorrow at [address] at the [address] [place] [address]. [address] office location and to call [phone] if unable to keep the appointment or if any questions. * Telephone Encounter - Maria D Pepper - 08/09/2022 9:50 AM EDT Attempted to call patient to remind him of eye measurement appointment tomorrow, 08/10/22 at 3:00pm in the [place] office location at [address] [place] [address]. No answer, and unable to leave message, voicemail box full. documented in this encounterOur Lady Of Mercy Hospital04-27-2023 Miscellaneous Notes* Telephone Encounter - Meche Rowland - 07/28/2022 9:03 AM EDT Patient's sister Janell left message in surgery scheduling: Patient is sick and cannot come in todayfor IOL measurements (ascan). Called and spoke with Janell. Rescheduled appointment to 08/10/22 at 3pm. documented in this encounterOur Lady Of Mercy Hospital04-26-2023 Miscellaneous Notes* Telephone Encounter - Meche Rowland - 07/27/2022 10:37 AM EDT Called and confirmed appointment for IOL measurements (ascan) on 07/28/22 at 1:[address] at [address] [place] [address], [facility] 150. The pre op history and physical exam has been scheduled for 08/12/22. Advised patient to call us at [phone] if any questions or if unable to keep the appointment. documented in this encounterOur Lady Of Mercy Hospital04-13-2023 Instructions* Patient Instructions* Renetta Meza MD [...] the morning of surgery documented in this encounterOur Lady Of Mercy Hospital04-13-2023 History of Present illness Narrative* Renetta Meza MD - 07/14/2022 12:58 PM EDT (E11.2930) Mild nonproliferative diabetic retinopathy of both eyes [...] patient was offered a [facility]/procedure at [facility]. The surgeon/proceduralist and patient have [...] NO Previous refractive surgery: NO Preferred office: [place] Intracameral phenylephrine and vigamox Special notes Brimonidine CALL JANELL [phone] (sister, contact) Drops for Surgery: Polytrim (clear/white) [...] if applicable, including the morning of surgery (H35.4657) Early dry stage nonexudative age-related macular degeneration of both eyes Comment: Mottling, no fluid Plan: Monitor RTC PEIOL OS then OD I have confirmed and edited as necessary the relevant ophthalmic history, ROS, and the neuro exam findings as obtained by others. I have seen and examined this patient. I have discussed the case and the management of this patient's care with the Resident/Fellow/Hand Mounter, if applicable. I also have reviewed and agree with the assessment and plan as stated above and agree with all of its relevant components. Renetta Meza MD July 14, 2022 1:02 PM documented in this encounterOur Lady Of Mercy Hospital03-31-2023 History of Present illness Narrative* Binh [...] quittin.2 Smokeless tobacco: Never Tobacco comments: Smokes [place] Vaping Use Vaping Use: Never used Substance [...] 8 hours as needed for nausea/vomiting. Insulin [place], Disposable, (COMFORT EZ PEN NEEDLES) 29 gauge [...] bleeding, clots, bleeding disorders. documented in this encounterOur Lady Of Mercy Hospital03-29-2023 History of Present illness Narrative* Belgica Vega DO - 06/29/2022 4:32 PM EDT Images from the original note were not included. Belgica Vega [address] [place] [address] Visit Date: June 29, 2022 Mr.Jim Najma Ashton Date of : 1960 MRN/E #: [id number] History of Present Illness José Manuel Ashton [...] quittin.2 Smokeless tobacco: Never Tobacco comments: Smokes [place] Vaping Use Vaping Use: Never used Substance [...] DAILY (6 AM). 30 tablet 2 Insulin [place], Disposable, (COMFORT EZ PEN NEEDLES) 29 gauge [...] Desk Reference: National Heart, Lung, and Blood Goldonna. National Institutes of Health. 2001: NIH Publication [...] (A) 74 - 99 mg/dL Final The [place] Diabetes Association (ADA) provides guidance for cutoff [...] Standards of Medical Care in Diabetes 2016, [place] Diabetes Association. Diabetes Care. 2016.39(Suppl 1). BUN [...] units of vitamin D daily,Which is available cdcd-kcw-uwomcen - CHOLECALCIFEROL (VITAMIN D3) 1,250 MCG (50,000 [...] to the nearest ED. documented in this encounterOur Lady Of Mercy Hospital03-28-2023 Miscellaneous Notes* Telephone Encounter - Belgica Vega DO - 06/28/2022 6:15 PM EDT This encounter was opened in error. documented in this encounterOur Lady Of Mercy Hospital03-22-2023 History of Present illness Narrative* Juancho Todd, - 06/22/2022 7:18 AM EDT June 22, 2022 An order has been received for PAP titration study from Dr. Belgica Vega DO, A. Sleep Center Staff/Watch Dial Maker Staff Orders. Visit prep complete - Please refer to the sleep study order (under procedures tab) for protocol details and special instructions. The sleep study is scheduled for 06/22/2022. Insurance: Payor: [facility] MEDICARE / Plan: [facility] DUAL COMPLETE HMO SNP / Product Type: Medicare / Payer/Plan Subscr Sex Relation Sub. Ins. ID Effective Group Num 1. [facility] MEDICARE * JOSÉ MANUEL ASHTON 1960 Male Self [id number] 04/03/22 [address] 2. MEDICAID [place] -* JOSÉ MANUEL ASHTON 1960 Male Self [id number] 11/04/21 [address] June 22, 2022 [...] AM, 06/22/2022 Brice Dixon documented in this encounterOur Lady Of Mercy Hospital03-01-2023 History of Present illness Narrative* Rory [...] one time a week. 4capsule 0 Insulin [place], Disposable, (COMFORT EZ PEN NEEDLES) 29 gauge [...] quittin.1 Smokeless tobacco: Never Tobacco comments: Smokes [place] Vaping Use Vaping Use: Never used Substance [...] nonspecific lung nodules/densities. 6 mm sclerotic focus rior0fg rib, indeterminate. - Order CT chest wo IV contrast. If CT chest is unremarkable, follow up in 6 months with lab work prior to visit. Call for questions or concerns. Rory Mendoza MD I spent a total of 40 minutes on the date of the service which included preparing to see the patient, lktm-iv-esnx patient care, completing clinical documentation, obtaining and/or reviewing separately obtained history, performing a medically appropriate examination, counseling and educating the pat ient/family/caregiver, ordering medications, tests, or procedures, independently interpreting results (not separately reported), communicating results to the patient/family/caregiver, and care coordination (not separately reported). documented in this encounterOur Lady Of Mercy Hospital02-16-2023 Miscellaneous Notes* Telephone Encounter - Griselda Mayfield - 05/19/2022 8:56 AM EST Consult to Oncology Confirmation number: [id number] documented in this encounterOur Lady Of Mercy Hospital02-15-2023 History of Present illness Narrative* Belgica Vega, DO - 05/18/2022 3:26 PM EST Images from the original note were not included. Belgica Vega [address] [facility] [address] [place] [address] Visit Date: May 18, 2022 Mr.Jim Najma Ashton Date of : 1960 MRN/E #: [id number] History of Present Illness José Manuel Ashton [...] also has history of microalbuminuria. Patientdid see marketing operations associate during January 2022. Per note indicates stage IIIa CKD presumed secondary to uncontrolled diabetes, uncontrolled hypertension and obstruction from BPH. Patient is not being prescr ibed medication by nephrology. Patient has history of hyperlipidemia. Cholesterol was 286 during September 2021 patient was prescribed Crestor 5 mg. Previously patient indicated he did not pick up worker Medication from the pharmacy. During last office visit which was a hospital discharge follow-up.. Patient had indicated previously he had did not know why he did not pick up worker the Crestor. That medication has since dropped off of his med list. Patient was being prescribed Lipitor 40 mg by hospitalist at [facility].Pt isnt taking lipitor or Crestor... Cholesterol was [...] is being prescribed Pt was referred to psychologist social recently. Patient indicates he has troubles remembering [...] quittin.1 Smokeless tobacco: Never Tobacco comments: Smokes [place] Vaping Use Vaping Use: Never used Substance [...] mouth once daily. 90 tablet 3 Insulin [place], Disposable, (COMFORT EZ PEN NEEDLES) 29 gauge [...] (A) 74 - 99 mg/dL Final Comment: Location:[facility], [address] [place] [address], [facility] The Accu-Chek Inform II glucose meter [...] (A) 4.2 - 5.6 % Final Comment: Location:[facility], [address] [place] [address], [facility] Point of care (POC) Hemoglobin A1c [...] specific diabetes management situations: The POC device palliative care nurse provides a normal range of 4.2% to 6.5% for the HGBA1C POC test. However, the [place] Diabetes Association guidelines indicate that patients with [...] to the nearest ED. documented in this encounterOur Lady Of Mercy Hospital02-08-2023 History of Present illness Narrative* Jen [...] Weight mgmt/activity No change (09/23/2020) Concerns: N/A Surgical Services Director plan for next 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 Signature Jen Bergman RN May 11, 2022 documented in this encounterOur Lady Of Mercy Hospital02-03-2023 Miscellaneous Notes* Telephone Encounter - BRANDIE [...] me know. Thanks, Manjula documented in this encounterOur Lady Of Mercy Hospital02-01-2023 History of Present illness Narrative* Noé [...] (no units) Date Value 03/28/2022 4+ Specific [place], Ur (no units) Date Value 03/28/2022 1.015 [...] 1 tablet by mouth once daily. Insulin [place], Disposable, (COMFORT EZ PEN NEEDLES) 29 gauge [...] quittin.0 Smokeless tobacco: Never Tobacco comments: Smokes [place] Vaping Use Vaping Use: Never used Substance [...] neg 02/17/2020 PSA 0.75, no Fhx of Plant Engineering Manager Assessment and Plan: Microhematuria- prior w/u neg, [...] Level: 4 - Moderate documented in this encounterOur Lady Of Mercy Hospital01-24-2023 History of Present illness Narrative* Jen [...] Weight mgmt/activity No change (09/23/2020) Concerns: N/A Surgical Services Director plan for next 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 Signature Jen Bergman RN April 26, 2022 documented in this encounterOur Lady Of Mercy Hospital01-19-2023 History of Present illness Narrative* Jen [...] Weight mgmt/activity No change (09/23/2020) Concerns: N/A Surgical Services Director plan for next outreach: Will follow up next wk. Signature Jen Bergman RN April 21, 2022 documented in this encounterOur Lady Of Mercy Hospital01-11-2023 History of Present illness Narrative* Belgica Vega DO - 04/13/2022 4:13 PM EST Transitional Care Management TCM Eligibility Documentation The following information was gathered during the initial Patient Outreach Encounter. Date of Outreach: 04/05/2022 Outreach Attempt 1: Contact Not Made Outreach Attempt 2: Contact Not Made Date of Discharge 04/01/2022 Some recent data might be hidden Summary Discharged from: [facility] Admit Date: March 28, 2022, discharge [...] also has history of microalbuminuria. Patientdid see marketing operations associate during January 2022. Per note indicates stage [...] mg. Previously patient indicated he did not pick up worker Medication from the pharmacy. During last office visit which was a hospital discharge follow-up.. Patient had indicated previously he had did not know why he did not pick up worker the Crestor. That medication has since dropped off of his med list. Patient was being prescribed Lipitor 40 mg by hospitalist at [facility].Pt isnt taking lipitor or Crestor... Cholesterol was [...] on med list Pt was referred to psychologist social recently. Patient indicates he has troubles remembering things. Patient indicates he brought his sister along to help remember things. Per sis, she doesn't want him to take all these pills, doesn't feel necessary. Pt uses [facility]. Review of Systems Constitutional: Negative for [...] 13, 2022 4:13 PM documented in this encounterOur Lady Of Mercy Hospital01-10-2023 History of Present illness Narrative* CHARLEY Bernabe - 04/12/2022 8:58 AM EST Provider Action / FYI PCP Action FYI Primary Care Social Work Assessment Date of Service: April 12, 2022 (Patient has been identified by name and date of ) Patient Name: José Manuel Ashton Referred by: Physician Patient Surgical Services Director: Jen Bergman RN Hand-In Received: Yes Reason [...] attempt to discuss with the patient. Social Feature Writer: Meche Sanders (Sister) [phone] Caregiver Status: Patient is not a caregiver for another person. Marital Status: Single Parents: did not discuss Children: not responsible for minor children Siblings: Meche Sanders (Sister) [phone]; Marek Ashton (Brother) Emotional Support animals: none Stress: Lives with brother and pbnlcd-di-fze and needs to move to his own housing. Primary Language: Beninese Ethnicity/Cultural identification: Not Sikhism Affiliation: did not disclose Gender Identity: Male Sexual Orientation: Straight (not lesbian or smith) Status (Including History of Combat Experience): None Living Arrangements: Home Resides with: Brother and Bnzkeu-ts-Uuk Issues or Concerns with Home Environment: Patient [...] Services: none Employment/Employer: disabled Source of Income: [facility] Insurance Provider(s): Payor: MEDICARE / Plan: MEDICARE A AND B / Product Type: Medicare / Medication Adherence: I am convinced of the importance of my prescription medication:Agree mostly - 0 I worry that my prescription medication will do more harm than good to me:Disagree mostly - 0 I feel financially burdened by my fsj-lx-mbcizf expenses for my prescription medication:Disagree mostly -0 Patient is categorized as:low risk < 2 Patient Stated Goals: community resources [place] of Choice Explained: N/A Summary: PCSW received [...] 12, 2022 TIME: 8:58 AM CONTACT #: [phone] documented in this encounterOur Lady Of Mercy Hospital01-04-2023 History of Present illness Narrative* Jen Bergman RN - 04/06/2022 2:35 PM EST TRANSITIONAL CARE MANAGEMENT (TCM) COMMUNITY MONITORING PROGRAM - [place]URIER SUMMARY: Contact made with patient: No - 2nd unsuccessful attempt - end outreach and close encounter Outreach ended * Jen Bergman RN - 04/05/2022 11:43 AM EST TRANSITIONAL CARE MANAGEMENT (TCM) COMMUNITY MONITORING PROGRAM - LAURIER Pt has a hospital f/u appointment on 04/13/22 at 3:40p SUMMARY: Pt discharged from [facility] on 04/01/22. RISK 27 Admitted for: REASON [...] TCM Home Visit Referral Source of Stratification: [facility] Hospital Admission Status: Discharged Readmission Risk Score: 27 JANELL Score: 7 Patient meets program referral criteria: No Patient does not qualify for High Risk TCM Home Visit program due to: Discharged home, does not meet program criteria Jen Bergman RN April 05, 2022 11:43 AM documented in this [facility]12-28-2022 Miscellaneous Notes* Telephone Encounter - Sissy Mayen - 03/30/2022 9:05 AM EST Primary care social work consult Auto-referred documented in this [facility]12-21-2022 Miscellaneous Notes* Telephone Encounter - Samia Thomason LPN - 03/23/2022 10:51 AM EST ----- Message from Soren Byrd MD sent at 03/22/2022 5:20 PM EST ----- Please call patient and inform results. Vitamin D levels were low. Start taking Vitamin D3 2,000 international unit(s) daily, available w/oprescription. documented in this [facility]12-21-2022 Miscellaneous Notes* Telephone Encounter - Liyah [...] daily, available w/oprescription. documented in this [facility]12-15-2022 History of Present illness Narrative* Jen Bergman RN - 03/17/2022 2:37 PM EST TRANSITION CARE MANAGEMENT (TCM) FOLLOW-UP NOTE Patient identified by name and date of : NO Summary: PCC attempted TCM f/u call ([facility] D/C 02/15/22) - not able to leave a msg. Concerns: N/A Surgical Services Director plan for next outreach: Will follow up in about 3wks. Signature Jen Bergman RN March 17, 2022 documented in this encounterOur Lady Of Mercy Hospital12-09-2022 History of Present illness Narrative* Jen Bergman RN - 03/11/2022 11:41 AM EST PRIMARY CARE COORDINATION FOLLOW-UP NOTE Patient identified by name and date of . NO Summary: PCC attempted to call pt for TCM f/u ([facility] D/C 02/15/22) - not able [...] Weight mgmt/activity No change (09/23/2020) Concerns: N/A Surgical Services Director plan for next outreach: Will follow up next wk. Signature Jen Bergman, RN March 11, 2022 documented in this encounterOur Lady Of Mercy Hospital12-08-2022 Miscellaneous Notes* Telephone Encounter - Bunny Daniels - 03/10/2022 11:06 AM EST ----- Message from Saskia Ramirez sent at 03/10/2022 10:38 AM EST ----- Reason for the call/escalation: Harish with [facility] calling for updated medication list Was Patient Referred to [facility]/Seek Emergency Treatment (Y/N): no Did Patient Agree (Y/N): n/a Was An Attempt Made To Transfer The Patient To The Office (Y/N): no Were You Able To Reach Someone At The Office (Y/N): n/a If Yes - Patient Was Transferred To (Caregivers Name): n/a If No - Which [facility] Leadership Spiral Gear Generator Did You Speak With Regarding This Patient: n/a Was an appointment scheduled (Y/N): no Reason patient was requesting visit (RFV/signs and symptoms/diagnosis) : [facility] Person calling if other than patient: Harish Return call to if other than patient: Harish Best contact number: [phone] , fax# [phone] Thank you, Saskia Ramirez March 10, 2022 10:38 AM documented in this encounterOur Lady Of Mercy Hospital11-29-2022 Miscellaneous Notes* Telephone Encounter - Griselda Mayfield - 03/01/2022 4:09 PM EST Consult to Endocrinology Confirmation number: [id number] documented in this encounterOur Lady Of Mercy Hospital11-29-2022 History of Present illness Narrative* Belgica Vega DO - 03/01/2022 2:48 PM EST Images from the original note were not included. Belgica Brandon Je [address] [facility] [address] [place] [address] Visit Date: March 01, 2022 Mr.Jim Najma Ashton Date of : 1960 MRN/E #: [id number] History of Present Illness José Manuel Ashton is a 61 year old male. Patient presents to the clinic today for follow-up hypertension, diabetes HPI Pt here with faina Maciel. Patient has history of hypertension and lower extremity edema.. BP today 156/94. BP during last office visit mvb255/85., Recheck 135/83. during January 2022. Patient was [...] Pt indicates doesn't want to go to [place].. Pt hasnt taken any DM meds x 4 days. Glucose was 170 on January 27, 2022. Patient does have history of CKD stage III AAA. Patient also has history of microalbuminuria. Patient did see marketing operations associate during January 2022. Per note indicates stage [...] 2022, discharge January 20, [address] [facility].. Per note: REASON FOR HOSPITALIZATION: Risk [...] mg. Previously patient indicated he did not pick up worker Medication from the pharmacy.. Patienthad indicated previously he had did not know why he did not pick up worker the Crestor. That medication has since dropped off of his med list. Patient is being prescribed Lipitor 40 mg by hospitalist at [facility].Pt isnt taking lipitor.. Cholesterol was 260 triglyceride [...] quittin.9 Smokeless tobacco: Never Tobacco comments: Smokes [place] Vaping Use Vaping Use: Never used Substance [...] mouth once daily. 90 tablet 3 Insulin [place], Disposable, (COMFORT EZ PEN NEEDLES) 29 gauge [...] Urine 01/21/2022 Trace (A) Negative Final Specific [place], Ur 01/21/2022 >=1.030 (A) 1.005 - 1.030 [...] 74 - 99 mg/dL Final Comment: Location:[facility], [address] [place] [address] The Accu-Chek Inform II glucose meter has [...] Desk Reference: National Heart, Lung, and Blood [place]. National Institutes of Health. 2001: NIH Publication [...] 74 - 99 mg/dL Final Comment: Location:[facility], [address] [address] The Accu-Chek Inform II glucose meter has [...] (A) 74 - 99 mg/dL Final Comment: Location:[place] [address] The Accu-Chek Inform II glucose meter has [...] (A) 74 - 99 mg/dL Final Comment: Location:[place] [address] The Accu-Chek Inform II glucose meter has [...] 74 - 99 mg/dL Final Comment: Location:[address], [place], [place], [address] The Accu-Chek Inform II glucose meter has [...] (A) 74 - 99 mg/dL Final The [place] Diabetes Association (ADA) provides guidance for cutoff [...] Standards of Medical Care in Diabetes 2016, [place] Diabetes Association. Diabetes Care. 2016.39(Suppl 1). BUN [...] (A) 74 - 99 mg/dL Final Comment: Location:[place] [address] The Accu-Chek Inform II glucose meter has [...] (A) 74 - 99 mg/dL Final Comment: Location:[address], Critical access hospital The Accu-Chek Inform II glucose meter has [...] (A) 74 - 99 mg/dL Final Comment: Location:[place] [address] The Accu-Chek Inform II glucose meter has [...] (A) 74 - 99 mg/dL Final Comment: Location:[place] [address] The Accu-Chek Inform II glucose meter has [...] (A) 74 - 99 mg/dL Final Comment: Location:[place] [address] The Accu-Chek Inform II glucose meter has [...] (A) 74 - 99 mg/dL Final Comment: Location:[place] [address] The Accu-Chek Inform II glucose meter has [...] 89 74 - 99 mg/dL Final Comment: Location:[place] [address] The Accu-Chek Inform II glucose meter has [...] (A) 74 - 99 mg/dL Final Comment: Location:[place] [address] The Accu-Chek Inform II glucose meter has [...] (A) 74 - 99 mg/dL Final Comment: Location:[place] [address] The Accu-Chek Inform II glucose meter has [...] (A) 74 - 99 mg/dL Final Comment: Location:[address], Critical access hospital The Accu-Chek Inform II glucose meter has [...] 76 74 - 99 mg/dL Final Comment: Location:[address], Critical access hospital The Accu-Chek Inform II glucose meter has [...] (A) 74 - 99 mg/dL Final Comment: Location:[place] [address] The Accu-Chek Inform II glucose meter has [...] (A) 74 - 99 mg/dL Final Comment: Location:[place] [address] The Accu-Chek Inform II glucose meter has [...] (A) 74 - 99 mg/dL Final Comment: Location:[place] [address] The Accu-Chek Inform II glucose meter has [...] 65 74 - 99 mg/dL Final Comment: Location:[place] [address] The Accu-Chek Inform II glucose meter has [...] 84 74 - 99 mg/dL Final Comment: Location:[place] [address] The Accu-Chek Inform II glucose meter has [...] (A) 74 - 99 mg/dL Final Comment: Location:[place] [address] The Accu-Chek Inform II glucose meter has [...] 95 74 - 99 mg/dL Final Comment: Location:[place] [address] The Accu-Chek Inform II glucose meter has [...] (A) 74 - 99 mg/dL Final The [place] Diabetes Association (ADA) provides guidance for cutoff [...] Standards of Medical Care in Diabetes 2016, [place] Diabetes Association. Diabetes Care. 2016.39(Suppl 1). BUN [...] 74 - 99 mg/dL Final Comment: Location:[facility], [address] [place] [address], Critical access hospital The Accu-Chek Inform II glucose meter has [...] 74 - 99 mg/dL Final Comment: Location:[facility], [address] [place] [address], Critical access hospital The Accu-Chek Inform II glucose meter has [...] (A) 74 - 99 mg/dL Final The [place] Diabetes Association (ADA) provides guidance for cutoff [...] Standards of Medical Care in Diabetes 2016, [place] Diabetes Association. Diabetes Care. 2016.39(Suppl 1). BUN [...] please visit the Change in Procalcitonin Calculator, [email or web address]. CRP 01/26/2022 0.3 <0.9 mg/dL Final Glucose, Point of Care 01/26/2022 159 (A) 74 - 99 mg/dL Final Comment: Location:[place] [address] The Accu-Chek Inform II glucose meter has [...] (A) 74 - 99 mg/dL Final Comment: Location:[place] [address] The Accu-Chek Inform II glucose meter has [...] (A) 74 - 99 mg/dL Final Comment: Location:[place] [address] The Accu-Chek Inform II glucose meter has [...] 73 74 - 99 mg/dL Final Comment: Location:[place] [address] The Accu-Chek Inform II glucose meter has [...] (A) 74 - 99 mg/dL Final Comment: Location:[place] [address] The Accu-Chek Inform II glucose meter has [...] to the nearest ED. documented in this encounterOur Lady Of Mer[facility] Hospital11-23-2022 Miscellaneous Notes* Telephone Encounter - Stephanie Walker - 02/23/2022 1:30 PM EST Tried to reach out to schedule colonoscopy screening and the voicemail was full and was unable to leave message. Stephanie Walker February 23, 2022 1:31 PM documented in this encounterOur Lady Of Mercy Hospital11-21-2022 Miscellaneous Notes* Telephone Encounter - Emma Mari - 02/21/2022 4:56 PM EST No Show Documentation José Manuel Ashton no showed for an appointment on 02/21/2022 with Janie Pickett APRN.PARTS REPRESENTATIVE at 3:00 pm. He was scheduled for [...] 21, 2022 4:57 PM documented in this encounterOur Lady Of Mercy Hospital11-21-2022 History of Present illness Narrative* Jen Bergman RN - 02/21/2022 3:24 PM EST TRANSITIONAL CARE MANAGEMENT (TCM) COMMUNITY MONITORING PROGRAM - [place]URI[place] SUMMARY: Pt discharged from [facility] on 02/15/22. Pt discharged from [facility] on 01/20/22. Admitted for: Hospital Problem List [...] and date of : YES Spoke to [facility] Summary: PCC called SNF re pt status. Pt was D/C'd on 02/15/22. Signature Jen Bergman RN February 21, 2022 documented in this encounterOur Lady Of Mercy Hospital11-21-2022 History of Present illness Narrative* Janie Pickett APRN.PARTS REPRESENTATIVE - 02/21/2022 11:29 AM EST Subjective Important [...] AST ALT Alkaline Phosphatase ok Moved from [place] at some point. Was taking actos plus Metformin. Eventually Primary Care Provider Added basal insulin. 10/2020: first time office visit with Janie Pickett APRN.PARTS REPRESENTATIVE for diabetes management. [facility] diabetes related [facility] [place] [facility] reviewed prior to today's office visit. Any changes made at our last diabetes management visit were abstracted accordingly (if applicable). Today's Office Visit: Orals: Actos 45 mg daily, Metformin ER 500 mg 2 tabs at breakfast and dinner, Basal insulin (dosed in units) Supper dose: [id number] Other: trulicity 1.5 mg, self monitoring blood [...] quittin.8 Smokeless tobacco: Never Tobacco comments: Smokes [place] Vaping Use Vaping Use: Never used Substance [...] tablets before breakfast and before supper Insulin [place], Disposable, (COMFORT EZ PEN NEEDLES) 29 gauge [...] this visit. Physical Exam documented in this encounterOur Lady Of Mercy Hospital10-28-2022 History of Present illness Narrative* Jen Bergman RN - 01/28/2022 8:42 AM EDT TRANSITION CARE MANAGEMENT (TCM) DISCHARGE TO POST ACUTE FACILITY POST ACUTE TRANSFER SUMMARY: -Pt discharged from [facility] on 01/27/22. RISK 29 -Post Acute Facility Admitted to SNF. 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 [id number] NoteHNO ID: [id number] Author: Luis Carlos Short Jr., MD Service: [...] SIGNATURE: Sarah Ventura (more content not included)...[facility] 01-26-2022 NoteHNO ID: [id number] Author: Mimi Benton RN Service: ? Author Type: Registered Nurse Type: Progress Notes Filed: 01/26/2022 5:38 AM Note Text: Assumed care of patient at 1930. He is alert and oriented, pleasant and cooperative. Pleasantly social with staff and peers. Denies SI/HI/AVH. Cooperative with HS meds, then retired to bed after snack, where he appeared to sleep through the night without sign of distress.[facility] 01-25-2022 NoteHNO ID: [id number] Author: Brigitte Carlisle MD Service: Psychiatry Author [...] plan, per patient's request. Aim d/c to [facility] rehab facility within next few days. Luis Carlos Sohrt Jr, MD January 25, 2022 12:55 PM PROGRESS NOTE BEHAVIORAL HEALTH SERVICE DATE: 01/25/2022 SERVICE TIME: 10:20 AM The Interdisciplinary team met and reviewed treatment goals and discharge planning. Subjective Patient seen in [facility], disheveled hair and is sitting alone eating. Reports that he is doing ok today. Wanting the team to call his sister Janell and have her updated on the plan. Is ok with going to SNF as long as it is not the facility in [place]. Denies any issues with his medications. Feels that he is slowly improving. Does not report SI/AVH. Sister's number (Janell) [phone] Objective PHYSICAL EXAM: BP 134/70 Pulse 86 [...] alternatives to the (more content not included)...[facility] 01-25-2022 NoteHNO ID: [id number] Author: Mimi Benton RN Service: ? Author [...] 0600 was scanned twice at 0ml. [facility] [id number] NoteHNO ID: [id number] Author: Corky Rodarte MD Service: Urology Author [...] January 24, 2022 TIME: 6:36 PM PAGER: [address] [place], [place] [address]10-24-2022 NoteHNO ID: [id number] Author: Kylah Orantes MD Service: ? Author Type: Physician Type: Progress Notes Filed: 02/27/2022 8:27 PM Note Text: [facility] - General Progress Note JOSÉ MANUEL ASHOTN : 1960 AGE: 61 SEX: M CSN: [id number] [facility]: Y[facility] LOCATION: [facility] DATE OF SERVICE: 01/24/2022 This is a [...] quittin.9 Smokeless tobacco: Never Tobacco comments: Smokes [place] Vaping Use Vaping Use: Never used Substance [...] reviewed and negative. [facility] Most recent images Reviewed [...] No goiter Kylah Orantes M.D. Internal MedicineSt. Anthony'S HospitalHimxvilg23-18-3081 NoteHNO ID: [id number] Author: Sarah Noguera DO Service: Psychiatry Author [...] Encouraging that patient willing to participate in care home rehab care upon discharge. Optimize antidepressant and anxiolytic (venlafaxine) and augmenting with mood stabilizer (Depakote). Aim d/c by end week to SNF near [facility] in [place], [place]. Luis Carlos Short Jr, MD January [...] -40-31 Some impairm (more content not included)...[facility] 01-24-2022 NoteHNO ID: [id number] Author: Domingo Lopez RN Service: Nursing Author Type: Registered Nurse Type: Nursing Progress Note Filed: 01/24/2022 6:01 AM Note Text: 2300 - 0730: 0000: pt observed asleep in bed. 0600: pt slept approximately [address] [facility] HospitalJkiyzexa66-74-9047 NoteHNO ID: [id number] Author: Corky Rodarte MD Service: Urology Author [...] 23, 2022 TIME: 2:30 PM PAGER: 789[facility] HospitalVqhojkka45-53-1136 NoteHNO ID: [id number] Author: Kylah Orantes MD Service: ? Author Type: Physician Type: Progress Notes Filed: 02/25/2022 12:30 AM Note Text: [facility] Progress Note JOSÉ MANUEL ASHTON : 1960 AGE: 61 SEX: M CSN: [id number] [facility]: PS[facility] LOCATION: 6002 DATE OF SERVICE: 01/23/2022 [...] quittin.9 Smokeless tobacco: Never Tobacco comments: Smokes [place] Vaping Use Vaping Use: Never used Substance [...] No goiter Kylah Orantes M.D. Internal MedicineSt. Anthony'S HospitalAazedovm26-80-7696 NoteHNO ID: [id number] Author: Kylah Orantes MD Service: ? Author Type: Physician Type: Progress Notes Filed: 02/20/2022 8:03 PM Note Text: [facility] - General Progress Note JOSÉ MANUEL ASHTON : 1960 AGE: 61 SEX: M CSN: [id number] [facility]: YR LOCATION: [address] DATE OF SERVICE: 01/22/2022 This is a [...] quittin.8 Smokeless tobacco: Never Tobacco comments: Smokes [place] Vaping Use Vaping Use: Never used Substance [...] No goiter Kylah Orantes M.D. Internal MedicineSt. Anthony'S HospitalZsezaqlr13-15-0841 NoteHNO ID: [id number] Author: Miriam Jennings APRN.PARTS REPRESENTATIVE Service: Psychiatry Author Type: Nurse Practitioner Type: [...] Imminent Physical Self (more content not included)...[facility] HospitalAzvotknu65-05-3809 NoteHNO ID: [id number] Author: Mimi Benton RN Service: ? Author Type: Registered Nurse Type: Progress Notes Filed: 01/21/2022 5:31 AM Note Text: Assumed care of patient at 1999. He is alert and oriented, passively cooperative. Denies SI/HI. Cooperative with medications, and appeared to sleep through the night without distress.[facility] HospitalOngdxlrv12-83-4447 NoteHNO ID: [id number] Author: Chele Mcginnis RN Service: Nursing Author [...] behavior Target Date Short Term Goals: 01/27/22 Senior Care Goals: Patient will demonstrate optimal level of functioning;Patient/support system will verbalize intent to comply with medication and treatment after discharge Target Date Gas Systems Worker Goals: 01/27/22 Interventions - Nursing: Obtain baseline [...] Term Goals: Refrain from self injurious behavior Gas Systems Worker Goals: Identify positive alternatives to self-injurious behavior [...] Ashton DATE: January 20, 2022 TIME: 5:48 [facility]10-20-2022 NoteHNO ID: [id number] Author: Teresa Diego APRN.PARTS REPRESENTATIVE Service: Hospital Medicine Author Type: Nurse Practitioner [...] Assessment AND Plan: - Referred by OP marketing operations associate Dr Kennedy for concern of worsening depression [...] (HCC) POA: Yes Assessment AND Plan: - Rig Hand 1.1, 1.3 at baseline. - Limits nephrotoxins and trend daily labs. Abdominal pain - Resolved, tolerating diet. - CT AP non acute - ADAT, continue bowel regimen. Dispo: Patient medically stable to transfer to unit, [address] Orantes will continue to follow along. Discussed with intake and Dr Olivas, patient accepted to N. Teresa Diego, MSN, PARTS REPRESENTATIVE [facility] 01/2022 10:30am For inpatients: I spent 25 minutes in the visit, with more than 50% of the total xyxv-ia-qxdu time of the visit in counseling / coordination of care. [facility] HospitalDirisjlw75-96-6595 NoteHNO ID: [id number] Author: Kylah Orantes MD Service: ? Author Type: Physician Type: Progress Notes Filed: 01/24/2022 9:34 PM Note Text: [facility] - General Progress Note JOSÉ MANUEL ASHTON : 1960 AGE: 61 SEX: M CSN: [id number] [facility]: [facility] LOCATION: [facility] ATTENDING PHYSICIAN: LUIS CARLOS SHORT JR DATE [...] follow up. Kylah Orantes M.D. Internal Medicine BARTHOLOMEW:[id number] /[id number] [id number] NoteHNO ID: [id number] Author: Rafal Carroll PA-C Service: Psychiatry Author Type: Physician Drying Room Operator Type: Plan of Care Filed: 01/20/2022 10:42 AM Note Text: PLAN OF CARE Patient referred to [facility] on 01/19 for voluntary admission given concerns for his depression to be affecting his quality of life and his ability to care for himself. Per primary team, patient is medically ready as of 01/19/2022. Per [facility], 01/20/22 @0815, Pt presented [to Dr. Hoffman], depression appears to be secondary to medical needs, wants to review chart and will make recommendations after that. Will call back after that should be after 2pm. Received a call from SOLUTIONS ANALYST Teresa Diego with concerns for delayed transfer, [...] Olivas @10:35AM, patient will be transferred to [address] [place], [place] [address]10-20-2022 NoteHNO ID: [id number] Author: Kylah Orantes MD Service: ? Author Type: Physician Type: Progress Notes Filed: 01/19/2022 10:43 PM Note Text: [facility] - General Progress Note JOSÉ MANUEL ASHTON : 1960 AGE: 61 SEX: M CSN: [id number] [facility]: [facility]: [facility] ATTENDING PHYSICIAN: Kylah Orantes M.D. DATE OF [...] quittin.8 Smokeless tobacco: Never Tobacco comments: Smokes [place] Vaping Use Vaping Use: Never used Substance [...] 33 Units SUBCUTANEOUS AT BEDTIME Teresa Diego APRN.PARTS REPRESENTATIVE 33 Units at 01/19/222207 atropine 0.5 mg injection 0.5 mg INTRAVENOUS PRN Radha Mack APRN.PARTS REPRESENTATIVE NaCl 0.9% iv flush bag 20 mL INTRAVENOUS PRN Radha Mack APRN.PARTS REPRESENTATIVE sodium chloride 0.9 % (flush) 3-5 mL (BD POSIFLUSH) 3-5 mL INTRAVENOUS q 12 H Radha Mack APRN.PARTS REPRESENTATIVE 5 mL at 01/19/227 aluminum-magnesium hydroxide-simethicone 200-200-20 mg/5 mL 30 mL (MAALOX,MYLANTA,MAG-AL PLUS) 30 mL ORAL DAILY PRN Radha Mack APRN.PARTS REPRESENTATIVE acetaminophen 650 mg tab(s) (TYLENOL) 650 mg ORAL q 6 H PRN Radha Mack APRN.PARTS REPRESENTATIVE 650 mg at 01/18/22 0818 insulin lispro injection (rapid acting) (ADMELOG) SUBCUTANEOUS AT BEDTIME Radha Mack APRN.PARTS REPRESENTATIVE 1 Units at 01/19/227 hydrALAZINE 10 mg injection (APRESOLINE) 10 mg INTRAVENOUS q 6 H PRN Radha Mack APRN.PARTS REPRESENTATIVE lisinopril 20 mg tab(s) (ZESTRIL, PRINIVIL) 20 mg ORAL DAILY Radha Mack APRN.PARTS REPRESENTATIVE 20 mg at 01/19/22 0848 tamsulosin 0.4 mg cap(s) (FLOMAX) 0.4 mg ORAL AT BEDTIME Radha Mack APRN.PARTS REPRESENTATIVE 0.4 mg at 01/19/227 insulin lispro injection (rapid acting) (ADMELOG) SUBCUTANEOUS w MEALS Nusrat Nash APRN.PARTS REPRESENTATIVE 15 Units at 01/19/22 1715 pioglitazone 45 mg tab(s) (ACTOS) 45 mg ORAL DAILY Nusrat Nash APRN.PARTS REPRESENTATIVE 45 mg at 01/19/22 0848 docusate sodium 100 mg cap(s) (COLACE) 100 mg ORAL BID Nusrat Nash APRN.PARTS REPRESENTATIVE 100 mg at 01/19/22 220 polyethylene glycol 3350 17 g packet (MIRALAX, GLYCOLAX) 17 g ORAL DAILY Nusrat Nash APRN.PARTS REPRESENTATIVE 17 g at 01/18/22 1222 venlafaxine ER 37.5 mg cap(s) (EFFEXOR XR) 37.5 mg ORAL DAILY WITH BREAKFAST Rafal Carroll PA-C 37.5 mg at 01/19/22 0849 dextrose 40 % 15 g 15 g OR (more content not included)...[facility] 01-19-2022 NoteHNO ID: [id number] Author: Teresa Diego APRN.PARTS REPRESENTATIVE Service: Hospital Medicine Author Type: Nurse Practitioner [...] Assessment AND Plan: - Referred by OP marketing operations associate Dr Kennedy for concern of worsening depression [...] (HCC) POA: Yes Assessment AND Plan: - Rig Hand 1.3 which is his baseline. - Limits nephrotoxins and trend daily labs. Abdominal pain - Resolved, tolerating diet. - CT AP non acute - ADAT, continue bowel regimen. Dispo: Patient medically stable to transfer to unit. Dr Orantes will continue to follow along and f/up UA/ culture. Discussed with Dr Orantes via phone and transfer orders placed. Teresa Diego, MSN, [facility] 01/19/22 3:30 PM For inpatients: I spent 35 minutes in the visit, with more than 50% of the total loxr-ep-lyww time of the visit in counseling / coordination of care. [facility] HospitalOpdijzeo01-91-1105 Miscellaneous Notes* Behavorial Health Intake - Yael Huerta, [facility] - 01/19/2022 5:16 PM EDT BEHAVIORAL HEALTH INTAKE NOTE SERVICE DATE: 01/19/2022 SERVICE TIME: 1700 Nature of the crisis: depression leading to medication noncompliance Presenting Problem: José Manuel Ashton is a 61 year old male referred by [facility] for depression. Per Psych consult 01/19/2022 [...] and care. Patient is agreeable. Per ED environmental services worker Roxanne MOORE on 01/17 This ad copy writer assessed patient via face to face who presents alert and oriented x 4, appears overweight and disheveled, speech is within normal limits appropriate to tone, prosody, melody, phonetic, and syntax, thought process is linear and organized, d ifficulty concentrating at times, and a poor historian,, mood is depressed with flat affect, with impaired judgement and insight into illness. Patient reports that his Service Correspondent sent him to the emergency room for [...] too many things going on . This ad copy writer inquires if patient believes he will [...] states that he has beenforced to a assisted in the past for not caring for himself. This ad copy writer discussed with patientpotential for a [facility] nurse to come into home to [...] quittin.8 Smokeless tobacco: Never Tobacco comments: Smokes [place] Vaping Use Vaping Use: Never used Substance [...] and before supper^Disp: 120 tablet^Rfl: 1 Insulin [place], Disposable, (COMFORT EZ PEN NEEDLES) 29 gauge [...] Major Depressive Disorder Satisfaction With Relationships: per [facility] 01/17 Pt reports to living with brothers and sisters. Patient states that he sometimes does not get along with his siblings. Pt states he came from a family of 17 siblings, he is number 17 Does Patient Have Minor Children for Whom He/She is Responsible?: No Education Level: Some High School (9th grade per [facility]) Is the Patient a : No Legal History: No Legal History How Legal Issues Were Verified: [facility] Clicker Operator of Courts Website;[facility] H[employer] Sexual Offender Website Gender Specific Test: Not [...] Cane Continence: Continent MENTAL HEALTH SERVICES: Agency/Organization: [facility] [...] Dr. Olivas Admission Status: Full Admit Unit: [address] Bed#: Room 617 Bed 1 Report Given To: Chele ZHANG Report Date: 01/20/22 Report Time: 1346 Admission Type: Voluntary Is Patient Less Than 18 Years of Age or have a Guardian/Healthcare Power of Topstitcher Zigzag?: No Disposition Date: 01/20/22 Disposition Time: 135 SIGNATURE: Yael Huerta [facility]ILDRENJanet PATIENT NAME: José Manuel Ashton DATE: January 19, 2022 TIME: 5:16 PM documented in this encounterOur Lady Of Mercy Hospital10-18-2022 NoteHNO ID: [id number] Author: Jennifer Castillo RN Service: Nursing Author Type: Registered Nurse Type: Nursing Progress Note Filed: 01/18/2022 4:10 PM Note Text: 1600 refuses to use urinal.[facility] HospitalUgvevbdh70-46-7443 NoteHNO ID: [id number] Author: Rafal Carroll PA-C Service: Psychiatry Author Type: Physician Drying Room Operator Type: Plan of Care Filed: 01/18/2022 6:05 PM Note Text: PLAN OF CARE José Manuel Ashton is a 61 year old male with history of MDD, BRANDAN, Cannabis Use Disorder, Tobacco Use Disorder (in remission), Alcohol Use Disorder (in full remission?), Obesity, DM2, HTN, BPH, CKD3, Vitamin D Deficiency, Malignant Neoplasm of Rectum, who presented to the ED as recommended by his marketing operations associate for a psychiatric evaluation in the context of poor compliance to treatment. 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 Kennedy for psych eval who saw [...] Was prescribed Wellbutrin, but didn't take. Per [facility], his last psych visit was in 05/31/2021 [...] 37.5 mg in (more content not included)...[facility] 01-18-2022 NoteHNO ID: [id number] Author: Nusrat Nash APRN.PARTS REPRESENTATIVE Service: Hospital Medicine Author Type: Nurse Practitioner [...] to the ED on request of his Service Correspondent, Dr Kennedy, for Psych evaluation (increasing depression). [...] -presented to the ED per request of Service Correspondent for Psych evaluation -await Psych evaluation Mixed [...] prophylaxis appropriat (more content not included)... [facility] [id number] History of Past illness Narrative* Problem Noted Date Resolved Date Abdominal discomfort 01/18/2022 01/19/2022 Microscopic hematuria 03/08/2021 01/17/2022 Weakness 05/05/2020 06/15/2020 Decreased mobility and endurance 05/05/2020 06/15/2020 documented as of this encounter (statuses as of 01/20/2022) [facility] History of Past illness Narrative* Problem Noted Date Resolved Date Abdominal discomfort 01/18/2022 01/19/2022 Microscopic hematuria 03/08/2021 01/17/2022 Weakness 05/05/2020 06/15/2020 Decreased mobility and endurance 05/05/2020 06/15/2020 documented as of this encounter (statuses as of 01/28/2022) [facility] History of Past illness Narrative* Problem Noted Date Resolved Date Abdominal discomfort 01/18/2022 01/19/2022 Microscopic hematuria 03/08/2021 01/17/2022 Weakness 05/05/2020 06/15/2020 Decreased mobility and endurance 05/05/2020 06/15/2020 documented as of this encounter (statuses as of 02/21/2022) [facility] History of Past illness Narrative* Problem Noted Date Resolved Date Abdominal discomfort 01/18/2022 01/19/2022 Microscopic hematuria 03/08/2021 01/17/2022 Weakness 05/05/2020 06/15/2020 Decreased mobility and endurance 05/05/2020 06/15/2020 documented as of this encounter (statuses as of 02/21/2022) [facility] History of Past illness Narrative* Problem Noted Date Resolved Date Abdominal discomfort 01/18/2022 01/19/2022 Microscopic hematuria 03/08/2021 01/17/2022 Weakness 05/05/2020 06/15/2020 Decreased mobility and endurance 05/05/2020 06/15/2020 documented as of this encounter (statuses as of 02/21/2022) [facility] History of Past illness Narrative* Problem Noted Date Resolved Date Abdominal discomfort 01/18/2022 01/19/2022 Microscopic hematuria 03/08/2021 01/17/2022 Weakness 05/05/2020 06/15/2020 Decreased mobility and endurance 05/05/2020 06/15/2020 documented as of this encounter (statuses as of 02/23/2022) [facility] History of Past illness Narrative* Problem Noted Date Resolved Date Abdominal discomfort 01/18/2022 01/19/2022 Microscopic hematuria 03/08/2021 01/17/2022 Weakness 05/05/2020 06/15/2020 Decreased mobility and endurance 05/05/2020 06/15/2020 documented as of this encounter (statuses as of 03/01/2022) [facility] History of Past illness Narrative* Problem Noted Date Resolved Date Abdominal discomfort 01/18/2022 01/19/2022 Microscopic hematuria 03/08/2021 01/17/2022 Weakness 05/05/2020 06/15/2020 Decreased mobility and endurance 05/05/2020 06/15/2020 documented as of this encounter (statuses as of 03/01/2022) [facility] History of Past illness Narrative* Problem Noted Date Resolved Date Abdominal discomfort 01/18/2022 01/19/2022 Microscopic hematuria 03/08/2021 01/17/2022 Weakness 05/05/2020 06/15/2020 Decreased mobility and endurance 05/05/2020 06/15/2020 documented as of this encounter (statuses as of 03/11/2022) [facility] History of Past illness Narrative* Problem Noted Date Resolved Date Abdominal discomfort 01/18/2022 01/19/2022 Microscopic hematuria 03/08/2021 01/17/2022 Weakness 05/05/2020 06/15/2020 Decreased mobility and endurance 05/05/2020 06/15/2020 documented as of this encounter (statuses as of 03/12/2022) [facility] History of Past illness Narrative* Problem Noted Date Resolved Date Abdominal discomfort 01/18/2022 01/19/2022 Microscopic hematuria 03/08/2021 01/17/2022 Weakness 05/05/2020 06/15/2020 Decreased mobility and endurance 05/05/2020 06/15/2020 documented as of this encounter (statuses as of 03/17/2022) [facility] History of Past illness Narrative* Problem Noted Date Resolved Date Abdominal discomfort 01/18/2022 01/19/2022 Microscopic hematuria 03/08/2021 01/17/2022 Weakness 05/05/2020 06/15/2020 Decreased mobility and endurance 05/05/2020 06/15/2020 documented as of this encounter (statuses as of 03/23/2022) [facility] History of Past illness Narrative* Problem Noted Date Resolved Date Abdominal discomfort 01/18/2022 01/19/2022 Microscopic hematuria 03/08/2021 01/17/2022 Weakness 05/05/2020 06/15/2020 Decreased mobility and endurance 05/05/2020 06/15/2020 documented as of this encounter (statuses as of 04/05/2022) [facility] History of Past illness Narrative* Problem Noted Date Resolved Date Abdominal discomfort 01/18/2022 01/19/2022 Microscopic hematuria 03/08/2021 01/17/2022 Weakness 05/05/2020 06/15/2020 Decreased mobility and endurance 05/05/2020 06/15/2020 documented as of this encounter (statuses as of 04/07/2022) [facility] History of Past illness Narrative* Problem Noted Date Resolved Date Abdominal discomfort 01/18/2022 01/19/2022 Microscopic hematuria 03/08/2021 01/17/2022 Weakness 05/05/2020 06/15/2020 Decreased mobility and endurance 05/05/2020 06/15/2020 documented as of this encounter (statuses as of 04/12/2022) [facility] History of Past illness Narrative* Problem Noted Date Resolved Date Abdominal discomfort 01/18/2022 01/19/2022 Microscopic hematuria 03/08/2021 01/17/2022 Weakness 05/05/2020 06/15/2020 Decreased mobility and endurance 05/05/2020 06/15/2020 documented as of this encounter (statuses as of 04/13/2022) [facility] History of Past illness Narrative* Problem Noted Date Resolved Date Abdominal discomfort 01/18/2022 01/19/2022 Microscopic hematuria 03/08/2021 01/17/2022 Weakness 05/05/2020 06/15/2020 Decreased mobility and endurance 05/05/2020 06/15/2020 documented as of this encounter (statuses as of 04/21/2022) [facility] History of Past illness Narrative* Problem Noted Date Resolved Date Abdominal discomfort 01/18/2022 01/19/2022 Microscopic hematuria 03/08/2021 01/17/2022 Weakness 05/05/2020 06/15/2020 Decreased mobility and endurance 05/05/2020 06/15/2020 documented as of this encounter (statuses as of 04/26/2022) [facility] History of Past illness Narrative* Problem Noted Date Resolved Date Abdominal discomfort 01/18/2022 01/19/2022 Microscopic hematuria 03/08/2021 01/17/2022 Weakness 05/05/2020 06/15/2020 Decreased mobility and endurance 05/05/2020 06/15/2020 documented as of this encounter (statuses as of 05/04/2022) [facility] History of Past illness Narrative* Problem Noted Date Resolved Date Abdominal discomfort 01/18/2022 01/19/2022 Microscopic hematuria 03/08/2021 01/17/2022 Weakness 05/05/2020 06/15/2020 Decreased mobility and endurance 05/05/2020 06/15/2020 documented as of this encounter (statuses as of 05/06/2022) [facility] History of Past illness Narrative* Problem Noted Date Resolved Date Abdominal discomfort 01/18/2022 01/19/2022 Microscopic hematuria 03/08/2021 01/17/2022 Weakness 05/05/2020 06/15/2020 Decreased mobility and endurance 05/05/2020 06/15/2020 documented as of this encounter (statuses as of 05/11/2022) [facility] History of Past illness Narrative* Problem Noted Date Resolved Date Abdominal discomfort 01/18/2022 01/19/2022 Microscopic hematuria 03/08/2021 01/17/2022 Weakness 05/05/2020 06/15/2020 Decreased mobility and endurance 05/05/2020 06/15/2020 documented as of this encounter (statuses as of 05/19/2022) [facility] History of Past illness Narrative* Problem Noted Date Resolved Date Abdominal discomfort 01/18/2022 01/19/2022 Microscopic hematuria 03/08/2021 01/17/2022 Weakness 05/05/2020 06/15/2020 Decreased mobility and endurance 05/05/2020 06/15/2020 documented as of this encounter (statuses as of 05/19/2022) [facility] History of Past illness Narrative* Problem Noted Date Resolved Date Abdominal discomfort 01/18/2022 01/19/2022 Microscopic hematuria 03/08/2021 01/17/2022 Weakness 05/05/2020 06/15/2020 Decreased mobility and endurance 05/05/2020 06/15/2020 documented as of this encounter (statuses as of 06/06/2022) [facility] History of Past illness Narrative* Problem Noted Date Resolved Date Abdominal discomfort 01/18/2022 01/19/2022 Microscopic hematuria 03/08/2021 01/17/2022 Weakness 05/05/2020 06/15/2020 Decreased mobility and endurance 05/05/2020 06/15/2020 documented as of this encounter (statuses as of 06/22/2022) [facility] History of Past illness Narrative* Problem Noted Date Resolved Date Abdominal discomfort 01/18/2022 01/19/2022 Microscopic hematuria 03/08/2021 01/17/2022 Weakness 05/05/2020 06/15/2020 Decreased mobility and endurance 05/05/2020 06/15/2020 documented as of this encounter (statuses as of 06/29/2022) [facility] History of Past illness Narrative* Problem Noted Date Resolved Date Abdominal discomfort 01/18/2022 01/19/2022 Microscopic hematuria 03/08/2021 01/17/2022 Weakness 05/05/2020 06/15/2020 Decreased mobility and endurance 05/05/2020 06/15/2020 documented as of this encounter (statuses as of 06/30/2022) [facility] History of Past illness Narrative* Problem Noted Date Resolved Date Abdominal discomfort 01/18/2022 01/19/2022 Microscopic hematuria 03/08/2021 01/17/2022 Weakness 05/05/2020 06/15/2020 Decreased mobility and endurance 05/05/2020 06/15/2020 documented as of this encounter (statuses as of 07/01/2022) [facility] History of Past illness Narrative* Problem Noted Date Resolved Date Abdominal discomfort 01/18/2022 01/19/2022 Microscopic hematuria 03/08/2021 01/17/2022 Weakness 05/05/2020 06/15/2020 Decreased mobility and endurance 05/05/2020 06/15/2020 documented as of this encounter (statuses as of 07/15/2022) [facility] History of Past illness Narrative* Problem Noted Date Resolved Date Abdominal discomfort 01/18/2022 01/19/2022 Microscopic hematuria 03/08/2021 01/17/2022 Weakness 05/05/2020 06/15/2020 Decreased mobility and endurance 05/05/2020 06/15/2020 documented as of this encounter (statuses as of 07/27/2022) [facility] History of Past illness Narrative* Problem Noted Date Resolved Date Abdominal discomfort 01/18/2022 01/19/2022 Microscopic hematuria 03/08/2021 01/17/2022 Weakness 05/05/2020 06/15/2020 Decreased mobility and endurance 05/05/2020 06/15/2020 documented as of this encounter (statuses as of 07/28/2022) [facility] of Past illness Narrative* Problem Noted Date Resolved Date Abdominal discomfort 01/18/2022 01/19/2022 Microscopic hematuria 03/08/2021 01/17/2022 Weakness 05/05/2020 06/15/2020 Decreased mobility and endurance 05/05/2020 06/15/2020 documented as of this encounter (statuses as of 08/09/2022) [facility] History of Past illness Narrative* Problem Noted Date Resolved Date Abdominal discomfort 01/18/2022 01/19/2022 Microscopic hematuria 03/08/2021 01/17/2022 Weakness 05/05/2020 06/15/2020 Decreased mobility and endurance 05/05/2020 06/15/2020 documented as of this encounter (statuses as of 08/13/2022) [facility] History of Past illness Narrative* Problem Noted Date Resolved Date Abdominal discomfort 01/18/2022 01/19/2022 Microscopic hematuria 03/08/2021 01/17/2022 Weakness 05/05/2020 06/15/2020 Decreased mobility and endurance 05/05/2020 06/15/2020 documented as of this encounter (statuses as of 08/15/2022) [facility]2022 NoteHNO ID: [id number] Author: Kylah Orantes MD Service: ? Author Type: Physician Type: Progress Notes Filed: 01/18/2022 11:14 PM Note Text: [facility] Progress Note JOSÉ MANUEL ASHTON : 1960 AGE: 61 SEX: M CSN: [id number] [facility]: [facility] LOCATION: [facility] ATTENDING PHYSICIAN: Kylah Orantes M.D. DATE OF [...] quittin.8 Smokeless tobacco: Never Tobacco comments: Smokes [place] Vaping Use Vaping Use: Never used Substance [...] injection 0.5 mg INTRAVENOUS PRN Radha Mack APRN.PARTS REPRESENTATIVE NaCl 0.9% iv flush bag 20 mL INTRAVENOUS PRN Radha Mack APRN.PARTS REPRESENTATIVE sodium chloride 0.9 % (flush) 3-5 mL (BD POSIFLUSH) 3-5 mL INTRAVENOUS q 12 H Radha Mack APRN.PARTS REPRESENTATIVE 5 mL at 01/18/222014 aluminum-magnesium hydroxide-simethicone 200-200-20 mg/5 mL 30 mL (MAALOX,MYLANTA,MAG-AL PLUS) 30 mL ORAL DAILY PRN Radha Mack APRN.PARTS REPRESENTATIVE acetaminophen 650 mg tab(s) (TYLENOL) 650 mg ORAL q 6 H PRN Radha Mack APRN.PARTS REPRESENTATIVE 650 mg at 01/18/22 0818 insulin lispro injection (rapid acting) (ADMELOG) SUBCUTANEOUS AT BEDTIME Radha Mack APRN.PARTS REPRESENTATIVE 2 Units at 01/18/22 0123 hydrALAZINE 10 mg injection (APRESOLINE) 10 mg INTRAVENOUS q 6 H PRN Radha Mack APRN.PARTS REPRESENTATIVE lisinopril 20 mg tab(s) (ZESTRIL, PRINIVIL) 20 mg ORAL DAILY Radha Mack APRN.PARTS REPRESENTATIVE 20 mg at 01/18/22 0817 tamsulosin 0.4 mg cap(s) (FLOMAX) 0.4 mg ORAL AT BEDTIME Radha Mack SAW EDGE FUSER CIRCULAR.PARTS REPRESENTATIVE 0.4 mg at 01/18/222014 enteric contrast (radiology procedure) ORAL DIRECTED PRN Kylah Orantes MD insulin lispro injection (rapid acting) (ADMELOG) SUBCUTANEOUS w MEALS Nusrat Nash APRN.PARTS REPRESENTATIVE 9 Units at 01/18/22 1729 pioglitazone 45 mg tab(s) (ACTOS) 45 mg ORAL DAILY Nusrat Nash APRN.PARTS REPRESENTATIVE 45 mg at 01/18/22 1218 insulin glargine 26 Units pen (long acting) (LANTUS SOLOSTAR, BASAGLAR KWIKPEN) 26 Units SUBCUTANEOUS AT BEDTIME Nusrat Nash APRN.PARTS REPRESENTATIVE 26 Units at 01/18/222015 docusate sodium 100 mg cap(s) (COLACE) 100 mg ORAL BID Nusrat Nash APRN.PARTS REPRESENTATIVE 100 mg at 01/18/222014 polyethylene glycol 3350 17 g packet (MIRALAX, GLYCOLAX) 17 g ORAL DAILY Nusrat Nash APRN.PARTS REPRESENTATIVE 17 g at 01/18/22 1222 [START ON 01/19/2022] venlafaxine ER 3 (more content not included)...[id number] History of Present illness Narrative* Jen Bergman RN - 01/18/2022 9:05 AM EDT PRIMARY CARE COORDINATION QUICK NOTE Patient identified by name and date . Pt admitted to [facility] yesterday. SBAR attached. Jen Bergman RN * Jen Bergman RN - 01/18/2022 8:57 AM EDT PRIMARY CARE COORDINATION SBAR PCC HAND IN José Manuel Ashton, 61 year old male SITUATION: Admitted for Psych Eval Hyperglycemic BACKGROUND: Living arrangements: Lives with Family - Brother and Sister Contact Name and phone number: Meche Sanders (Sister) - Health Feature Writer: His siblings help Self Care/ADLs: Independent Mobility: Independent Barriers to care/Adherence: Financial Transportation Other - Pt states that he just doesn't want to take his meds or check his blood sugars RECOMMENDATIONS: Pt may need SNF Name of Air Hose Coupler: Jen Bergman RN [facility] or [facility] office: [facility] (Dr. Vega, PCP) Phone number: [phone] documented in this encounterOur Lady Of Mercy Hospital10-18-2022 NoteHNO ID: [id number] Author: Radha Mack APRN.LEX Service: Critical Care Author Type: Nurse Practitioner Type: Progress Notes Filed: 01/18/2022 12:35 AM Note Text: Gasoline Truck Operator Coverage Note Patient Name: José Manuel Ashton This is a 61 year old male admitted for hyperglycemia without anion gap and psych eval. He was directed to come to the ED by his marketing operations associate Dr. Kennedy for concern of patient's decrease willingness to take his medications and feelings of depression. He is admitted to the [facility] for glycemic control. Plan discussed with [...] SpO2 98% BMI 36.40 kg/m? Radha Mack APRN.PARTS REPRESENTATIVE January 18, 2022 12:[address] [facility]10-17-2022 NoteCOVID 19 RESULT: SARS-CoV-2 (Agent of COVID-19) Not Detected by RT-PCR or equivalent method. This test has been authorized by FDA under an Emergency Use Authorization (EUA). INFLUENZA A PCR: Negative for Influenza A by RT-PCR INFLUENZA B PCR: Negative for Influenza B by RT-PCR RSV PCR: Negative for Respiratory Syncytial Virus (RSV) by PCRLutheran HospitalComment on above:Performed By: #### [id number] ####[facility] LABORATORYCLIA [id number] [place] [address] [place] 01-17-2022 Miscellaneous Notes* Behavorial Health Intake - Roxanne Rowland, OSCAR - 01/17/2022 8:50 PM EDT BEHAVIORAL HEALTH INTAKE NOTE SERVICE DATE: 01/17/2022 SERVICE TIME: 8:38 pm Nature of the crisis: Psychiatric evaluation for depression from Service Correspondent outpatient appointment Presenting Problem: José Manuel Ashton [...] and CKD stage 3a, brought in to [facility] from Outpatient Office by self for [...] get helped. He has a psychiatrist at [facility] at [place], [place]. This ad copy writer assessed patient via face to face who presents alert and oriented x 4, appears overweight and disheveled, speech is within normal limits appropriate to tone, prosody, melody, phonetic, and syntax, thought process is linear and organized, difficulty concentrating at times, and a poor historian,, mood is depressed with flat affect, with impaired judgement and insight into illness. Patient reports that his Service Correspondent sent him to the emergency room for [...] too many things going on . This ad copy writer inquires if patient believes he will [...] states that he has beenforced to a assisted in the past for not caring for himself. This ad copy writer discussed with patientpotential for a [facility] nurse to come into home to assist with his medication management to ensure he is caring for self properly and taking medications. Patient has been calm and cooperative in the ED with no restraints or medications administered. This ad copy writer spoke to ED physician, Dr. Rascon, [...] quittin.8 Smokeless tobacco: Never Tobacco comments: Smokes [place] Vaping Use Vaping Use: Never used Substance [...] and before supper^Disp: 120 tablet^Rfl: 1 Insulin [place], Disposable, (COMFORT EZ PEN NEEDLES) 29 gauge [...] Employment Status: Disabled Is the Patient a [place]: No Legal History: No Legal History How Legal Issues Were Verified: [facility] Clicker Operator of Courts Website;[facility] Sexual Offender Website Gender Specific Test: Not Applicable Sex at Time of : Male Patient Identified Gender: Male Preferred Pronoun: He/Him/His Sexual Orientation: Heterosexual Cultural/Sikhism Concerns Cultural Issues or Concerns That Might Affect Treatment: NOne Sikhism/Spiritual Issues or Concerns That Might Affect Treatment: None FAMILY HISTORY: FAMILY HISTORY Problem Relation Age of Onset other (Heart stroke) Mother other (Glaucoma lung cancer) Father Glaucoma Sister Glaucoma Brother OBSERVATIONS Level of Consciousness Alert: Yes Orientation: Person;Place;Time;Situation Physical Appearance Appears: Disheveled;Overweight Speech Rate: Appropriate Volume: Appropriate Quality: Appropriate to Topic Quantity: Appropriate Thought Processes Thought: Difficulty Concentrating;Poor Historian/Business Systems Lead;Linear and Organized Thought Content Delusions: None Observed [...] Age or have a Guardian/Healthcare Power of Topstitcher Zigzag?: No Disposition Date: 01/17/22 Disposition Time: 2319 SIGNATURE: OSCAR Pandya PATIENT NAME: José Manuel Ashton DATE: January 17, 2022 TIME: 8:50 PM documented in this encounterOur Lady Of Mercy Hospital10-17-2022 NoteHNO ID: [id number] Author: Billy Cody MD Service: ? Author Type: Physician Type: Progress Notes Filed: 01/17/2022 3:36 PM Note Text: [facility] [place] NEPHROLOGY CONSULT NOTE Patient Name: José Manuel [...] get helped. He has a psychiatrist at [facility] at [place]. PAST MEDICAL HISTORY: PAST MEDICAL HISTORY [...] quittin.8 Smokeless tobacco: Never Tobacco comments: Smokes [place] Vaping Use Vaping Use: Never used Substance Use Topics Alcohol use: Not Currently Drug use: Yes Types: Marijuana Comment: daily Single. No children. He lives with his brother and sister. (He moved back from [place]). 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 He [...] tablets before breakfast and before supper Insulin [place], Disposable, (COMFORT EZ PEN NEEDLES) 29 gauge x 1/2 1 Each once daily. insulin glargine (LANTUS SOLOSTAR, BASAGLAR KWIKPEN) 100 unit/mL (3 mL) Inject 26 Units subcutaneously daily at bedtime. buPROPion SR (WELLBUTRIN SR) 100 mg 12 hr tablet Take 1 tablet by mouth once daily. (more content not included)...[facility] [id number] Instructions* Patient Instructions* Billy Cody MD - 01/17/2022 3:14 PM EDT Advised to go to the ER for evaluation of depression. documented in this encounterOur Lady Of Mercy Hospital10-17-2022 History of Present illness Narrative* Billy Cody MD - 01/17/2022 3:00 PM EDT Images from the original note were not included. [facility] NEPHROLOGY CONSULT NOTE Patient Name: José Manuel [...] get helped. He has a psychiatrist at [facility] at [place]. PAST MEDICAL HISTORY: PAST MEDICAL HISTORY [...] quittin.8 Smokeless tobacco: Never Tobacco comments: Smokes [place] Vaping Use Vaping Use: Never used Substance Use Topics Alcohol use: Not Currently Drug use: Yes Types: Marijuana Comment: daily Single. No children. He lives with his brother and sister. (He moved back from [place]). 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 He [...] tablets before breakfast and before supper Insulin [place], Disposable, (COMFORT EZ PEN NEEDLES) 29 gauge [...] 04/12/2021 5.0 5.0 - 8.0 Final Specific [place], [place] Date Value Ref Range Status 04/12/2021 [...] CC: Belgica Vega DO documented in this encounterOur Lady Of Mercy Hospital10-14-2022 Miscellaneous Notes* Telephone Encounter - Simeon Vásquez - 01/14/2022 2:03 PM EDT Patient has cancelled surgery again due to ongoing kidney problems. Case has been cancelled out by Girma Vásquez and all scheduled PO appts. too documented in this encounterOur Lady Of Mercy Hospital10-14-2022 Miscellaneous Notes* Telephone Encounter - Maria [...] later date for rescheduling. documented in this encounterOur Lady Of Mercy Hospital10-07-2022 History of Present illness Narrative* Jen [...] Weight mgmt/activity No change (09/23/2020) Concerns: N/A Surgical Services Director plan for next outreach: Will follow up in about 3wks. Signature Jen Bergman RN January 07, 2022 documented in this encounterOur Lady Of Mercy Hospital10-03-2022 History of Present illness Narrative* Belgica Vega, DO - 01/03/2022 3:53 PM EDT Images from the original note were not included. Belgica Vega [address] [facility] [address] [place] [address] Visit Date: January 03, 2022 Mr.Jim Najma Ashton Date of : 1960 MRN/E #: [id number] History of Present Illness José Manuel Ashton is a 61 year old male. Patient presents to the clinic today for follow-up hypertension, diabetes HPI Per appointment note patient has been stressed and depressed. Has not been taking his medication regularly Patient has history of hypertension and lower extremity edema.. BP today 141/85. BP during last office visit [id number]. during November 2021. Patient was prescribed lisinopril [...] office visit patient indicated he did not pick up worker Medication from the pharmacy.. Pt admits hasnt [...] quittin.7 Smokeless tobacco: Never Tobacco comments: Smokes [place] Vaping Use Vaping Use: Never used Substance [...] breakfast and before supper 120tablet 1 Insulin [place], Disposable, (COMFORT EZ PEN NEEDLES) 29 gauge [...] (A) 74 - 99 mg/dL Final Comment: Location:[facility] [employer] [place], [address] [place] [address] The Accu-Chek Inform II glucose meter has [...] (A) 4.2 - 5.6 % Final Comment: Location:[facility] [employer] [place], [address] [place] [address], [facility] Point of care (POC) Hemoglobin A1c [...] specific diabetes management situations: The POC device palliative care nurse provides a normal range of 4.2% to 6.5% for the HGBA1C POC test. However, the [place] Diabetes Association guidelines indicate that patients with [...] to the nearest ED. documented in this encounterOur Lady Of Mercy Hospital09-27-2022 History of Present illness Narrative* Jen [...] Weight mgmt/activity No change (09/23/2020) Concerns: N/A Surgical Services Director plan for next outreach: Will follow up in 1-2 wks. Signature Jen Bergman RN December 28, 2021 documented in this encounterOur Lady Of Mercy Hospital09-19-2022 NoteHNO ID: [id number] Author: Billy Cody MD Service: ? Author [...] signs AND symptoms (ex: edema, SOB): azotemia [facility] [place] Billy Leon MD Staff Nephrology and Hypertension [facility] Pager# [phone]. Anthony'S [id number] History of Present illness Narrative* Billy Cody [...] signs & symptoms (ex: edema, SOB): azotemia [facility] [place] Billy Leon MD Staff Nephrology and Hypertension [facility] Pager# [phone] documented in this encounterOur Lady Of Mercy Hospital09-02-2022 History of Present illness Narrative* Jen [...] Weight mgmt/activity No change (09/23/2020) Concerns: N/A Surgical Services Director plan for next outreach: Will follow up in about 1 month. Signature Jen Bergman RN December 03, 2021 documented in this encounterOur Lady Of Mercy Hospital08-30-2022 Miscellaneous Notes* Telephone Encounter - Maria [...] in scheduling cataract surgery. documented in this encounterOur Lady Of Mercy Hospital08-22-2022 Miscellaneous Notes* Telephone Encounter - Yarely Teixeira Pss - 11/22/2021 8:50 AM EDT Faxed letter to Belgica Vega DO [address] [facility] [id number] [address] documented in this encounterOur Lady Of Mercy Hospital08-09-2022 Miscellaneous Notes* Telephone Encounter - Maria [...] at a later date. documented in this encounterOur Lady Of Mercy Hospital08-05-2022 History of Present illness Narrative* Belgica L Je, DO - 11/05/2021 4:10 PM EDT Images from the original note were not included. Belgica Brandon Je [address] [facility] [address] [place] [address] Visit Date: November 05, 2021 Mr.Jim Najma Ashton Date of : 1960 MRN/E #: [id number] History of Present Illness José Manuel Ashton [...] Pt indicates having troubles scheduling, told by certified coding specialist not sure what kind of kidney dr [...] Smokeless tobacco: Never Used Tobacco comment: Smokes [place] Vaping Use Vaping Use: Never used Substance [...] breakfast and before supper 120tablet 1 Insulin [place], Disposable, (COMFORT EZ PEN NEEDLES) 29 gauge [...] (A) 74 - 99 mg/dL Final Comment: Location:[facility] [employer] [place], [address] [place] [address], [facility] The Accu-Chek Inform II glucose meter [...] (A) 4.2 - 5.6 % Final Comment: Location:[facility] [place], [address] [place] [address], [facility] Point of care (POC) Hemoglobin A1c [...] specific diabetes management situations: The POC device palliative care nurse provides a normal range of 4.2% to 6.5% for the HGBA1C POC test. However, the [place] Diabetes Association guidelines indicate that patients with [...] to the nearest ED. documented in this encounterOur Lady Of Mercy Hospital08-05-2022 History of Present illness Narrative* Renetta Meza MD - 11/05/2021 2:13 PM EDT (E11.1502) Mild nonproliferative diabetic retinopathy of both eyes [...] patient was offered a [facility]/procedure at [facility]. The surgeon/proceduralist and patient have [...] NO Previous refractive surgery: NO Preferred office: [facility] Intracameral phenylephrine and vigamox Special notes sugars [...] management of this patient's care with the Resident/Fellow/Hand Mounter, if applicable. I also have reviewed and agree with the assessment and plan as stated above and agree with all of its relevant components. Renetta Meza MD November 05, 2021 2:16 PM documented in this encounterOur Lady Of Mercy Hospital08-01-2022 History of Present illness Narrative* Jen [...] Weight mgmt/activity No change (09/23/2020) Concerns: N/A Surgical Services Director plan for next outreach: Will follow up in about 3wks. Signature Jen Bergman RN November 01, 2021 documented in this encounterOur Lady Of Mercy Hospital07-27-2022 History of Present illness Narrative* Noé [...] (no units) Date Value 04/12/2021 3+ Specific [place], Ur (no units) Date Value 04/12/2021 1.025 [...] tablets before breakfast and before supper Insulin [place], Disposable, (COMFORT EZ PEN NEEDLES) 29 gauge [...] Smokeless tobacco: Never Used Tobacco comment: Smokes [place] Vaping Use Vaping Use: Never used Substance [...] neg 02/17/2020 PSA 0.75, no Fhx of Plant Engineering Manager Assessment and Plan: Microhematuria- prior w/u neg. [...] Level: 4 - Moderate documented in this encounterOur Lady Of Mercy Hospital07-26-2022 Miscellaneous Notes* Telephone Encounter - Nancy Howard - 10/26/2021 11:55 AM EDTSummary: Referral Follow up Images from the original note were not included. called pt mailbox full mailed letter documented in this encounterOur Lady Of Mercy Hospital07-14-2022 Miscellaneous Notes* Telephone Encounter - Alissa Bryson - 10/14/2021 3:56 PM EDT Called pt to vania colonoscopy with Gabby, mailbox is full, unable to lvm. Alissa Bryson documented in this encounterOur Lady Of Mercy Hospital07-05-2022 Miscellaneous Notes* Telephone Encounter - Nancy Howard - 10/05/2021 4:12 PM EDTSummary: Referral Referral to Nephrology Confirmation number: [id number] documented in this encounterOur Lady Of Mercy Hospital07-05-2022 History of Present illness Narrative* Belgica Vega, - 10/05/2021 3:13 PM EDT Images from the original note were not included. Belgica Vega [address] [facility] [address] [place] [address] Visit Date: October 05, 2021 Mr.Jim Najma Ashton Date of : 1960 MRN/E #: [id number] History of Present Illness José Manuel Ashton [...] Smokeless tobacco: Never Used Tobacco comment: Smokes [place] Vaping Use Vaping Use: Never used Substance [...] breakfast and before supper 120tablet 1 Insulin [place], Disposable, (COMFORT EZ PEN NEEDLES) 29 gauge [...] (A) 74 - 99 mg/dL Final The [place] Diabetes Association (ADA) provides guidance for cutoff [...] Standards of Medical Care in Diabetes 2016, [place] Diabetes Association. Diabetes Care. 2016.39(Suppl 1). BUN [...] Desk Reference: National Heart, Lung, and Blood [place]. National Institutes of Health. 2001: NIH Publication [...] to the nearest ED. documented in this encounterOur Lady Of Mercy Hospital06-20-2022 Miscellaneous Notes* Telephone Encounter - Nancy Howard - 09/20/2021 2:16 PM EDT Images from the original note were not included. Referral to Ophthalmology Confirmation number: [id number] documented in this encounterOur Lady Of Mercy Hospital06-20-2022 History of Present illness Narrative* Belgica Vega DO - 09/20/2021 1:23 PM EDT Transitional Care Management TCM Eligibility Documentation The following information was gathered during the initial Patient Outreach Encounter. No flowsheet data found. Summary Discharged from: [facility] Admit Date: 09/06/2021 Admitted for: boil [...] 20, 2021 1:23 PM documented in this encounterOur Lady Of Mercy Hospital06-17-2022 History of Present illness Narrative* Jen [...] Weight mgmt/activity No change (09/23/2020) Concerns: N/A Surgical Services Director plan for next 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 Signature Jen Bergman RN September 17, 2021 documented in this encounterOur Lady Of Mercy Hospital06-08-2022 History of Present illness Narrative* Jen Bergman RN - 09/08/2021 2:32 PM EDT [employer] EMERGENCY DEPARTMENT FOLLOW UP INITIAL CONTACT Initial [...] BLOOD (POC) 0216 Discharged documented in this encounterOur Lady Of Mercy Hospital06-06-2022 History of Present illness Narrative* Jen [...] Weight mgmt/activity No change (09/23/2020) Concerns: N/A Surgical Services Director plan for next outreach: Will follow up in about 3wks. Signature Jen Bergman RN September 06, 2021 documented in this encounterOur Lady Of Mercy Hospital05-27-2022 History of Present illness Narrative* Janie Pickett, SAW EDGE FUSER CIRCULAR.PARTS REPRESENTATIVE - 08/27/2021 8:42 AM EDT Subjective Important [...] (38-113), AST and ALT ok Moved [place] at some point. Was taking actos plus Metformin. Eventually Primary Care Provider Added basal insulin. 10/2020: first time office visit with Janie Pickett APRN.LEX for diabetes management. [facility] reviewed prior to today's [...] Smokeless tobacco: Never Used Tobacco comment: Smokes [place] Vaping Use Vaping Use: Never used Substance [...] tablets before breakfast and before supper Insulin [place], Disposable, (COMFORT EZ PEN NEEDLES) 29 gauge [...] this visit. Physical Exam documented in this encounterOur Lady Of Mercy Hospital05-13-2022 Miscellaneous Notes* Telephone Encounter - Fermin [...] 12, 2021 2:42 PM documented in this encounterOur Lady Of Mercy Hospital05-11-2022 History of Present illness Narrative* Belgica Vega, DO - 08/11/2021 4:25 PM EDT Images from the original note were not included. Belgica Vega [address] [place] [address] Visit Date: August 11, 2021 Mr.Jim Najma Ashton Date of : 1960 MRN/E #: [id number] History of Present Illness José Manuel Ashton [...] Smokeless tobacco: Never Used Tobacco comment: Smokes [place] Vaping Use Vaping Use: Never used Substance [...] breakfast and before supper 120tablet 1 Insulin [place], Disposable, (COMFORT EZ PEN NEEDLES) 29 gauge [...] 07/05/2021 1.97 1.00 - 4.00 k/uL Final Murray% 07/05/2021 7.0 % Final Abs [place] 07/05/2021 0.57 <0.87 k/uL Final E[place]% 07/05/2021 [...] (A) 74 - 99 mg/dL Final The [place] Diabetes Association (ADA) provides guidance for cutoff [...] Standards of Medical Care in Diabetes 2016, [place] Diabetes Association. Diabetes Care. 2016.39(Suppl 1). BUN [...] Desk Reference: National Heart, Lung, and Blood [place]. National Institutes of Health. 2001: NIH Publication [...] 11.6 (A) 4.3 - 5.6 % Final [place] Diabetes Association guidelines indicate that patients with HgbA1c in the range 5.7-6.4% are at increased risk for development of diabetes, and intervention by lifestyle modification may be beneficial. HgbA1c greater or equal to 6.5% is considered diagnostic of diabetes. Estimated Average Glucose 07/05/2021 286 mg/dL Final eAG: (Estimated average glucose) is a calculated value from HgbA1c and is human resources representative of the average blood glucose level [...] units of vitamin D daily,Which is available [id number] 7. Mixed hyperlipidemia - ICD9: 272.2, ICD10: [...] to the nearest ED. documented in this encounterOur Lady Of Mercy Hospital05-09-2022 History of Present illness Narrative* SWETHA [...] 2021 TIME: 4:14 PM documented in this encounterOur Lady Of Mercy Hospital05-05-2022 History of Present illness Narrative* Jen [...] Weight mgmt/activity No change (09/23/2020) Concerns: N/A Surgical Services Director plan for next outreach: Will follow up in about 3wks. Signature Jen Bergman RN August 05, 2021 documented in this encounterOur Lady Of Mercy Hospital04-25-2022 Miscellaneous Notes* Telephone Encounter - TAMMY [...] Thanks. Jen Bergman RN documented in this encounterOur Lady Of Mercy Hospital04-21-2022 History of Present illness Narrative* Jen [...] Weight mgmt/activity No change (09/23/2020) Concerns: N/A Surgical Services Director plan for next 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 Signature Jen Bergman RN July 22, 2021 documented in this encounterOur Lady Of Mercy Hospital04-05-2022 Miscellaneous Notes* Telephone Encounter - Belgica Vega DO - 07/06/2021 6:30 PM EDT Please notify patient received the labs, blood sugar was 397. Encourage patient to take Lantus nightly. Recommend patient follow-up with endocrinology Recommend if patient feels unwell that he call 911. Can discuss results at appointment Thank you, Belgica Vega D.O. documented in this encounterOur Lady Of Mercy Hospital03-31-2022 History of Present illness Narrative* Janie Pickett, SAW EDGE FUSER CIRCULAR.PARTS REPRESENTATIVE - 07/01/2021 8:41 AM EDT Subjective Important [...] AST ALT Alkaline Phosphatase ok Moved from [place] at some point. Was taking actos plus Metformin. Eventually Primary Care Provider Added basal insulin. 10/2020: first time office visit with Janie Pickett APRN.LEX for diabetes management. Previous diabetes related labs from [facility] and [facility] reviewed prior to today's office visit. [...] Smokeless tobacco: Never Used Tobacco comment: Smokes [place] Vaping Use Vaping Use: Never used Substance [...] 1 tablet by mouth once daily. Insulin [place], Disposable, (COMFORT EZ PEN NEEDLES) 29 gauge x 1/2 1 Each once daily. alcohol swabs (ALCOHOL PREP PADS) Apply 1 application to affected area as directed. Objective There were no vitals taken for this visit. Physical Exam documented in this encounterOur Lady Of Mercy Hospital12-06-2021 History of Past illness Narrative* Problem Noted Date Resolved Date Microscopic hematuria 03/08/2021 01/17/2022 Weakness 05/05/2020 06/15/2020 Decreased mobility and endurance 05/05/2020 06/15/2020 documented as of this encounter (statuses as of 01/17/2022) [facility]12[facility] of Past illness Narrative* Problem Noted Date Resolved Date Microscopic hematuria 03/08/2021 01/17/2022 Weakness 05/05/2020 06/15/2020 Decreased mobility and endurance 05/05/2020 06/15/2020 documented as of this encounter (statuses as of 01/18/2022) [facility] History of Past illness Narrative* Problem Noted Date Resolved Date Microscopic hematuria 03/08/2021 01/17/2022 Weakness 05/05/2020 06/15/2020 Decreased mobility and endurance 05/05/2020 06/15/2020 documented as of this encounter (statuses as of 01/18/2022) [facility] of Past illness Narrative* Problem Noted Date Resolved Date Weakness 05/05/2020 06/15/2020 Decreased mobility and endurance 05/05/2020 06/15/2020 documented as of this encounter (statuses as of 07/01/2021) [facility] of Past illness Narrative* Problem Noted Date Resolved Date Weakness 05/05/2020 06/15/2020 Decreased mobility and endurance 05/05/2020 06/15/2020 documented as of this encounter (statuses as of 07/06/2021) [facility] of Past illness Narrative* Problem Noted Date Resolved Date Weakness 05/05/2020 06/15/2020 Decreased mobility and endurance 05/05/2020 06/15/2020 documented as of this encounter (statuses as of 07/22/2021) [facility] of Past illness Narrative* Problem Noted Date Resolved Date Weakness 05/05/2020 06/15/2020 Decreased mobility and endurance 05/05/2020 06/15/2020 documented as of this encounter (statuses as of 07/26/2021) [facility] of [facility] illness Narrative* Problem Noted Date Resolved Date Weakness 05/05/2020 06/15/2020 Decreased mobility and endurance 05/05/2020 06/15/2020 documented as of this encounter (statuses as of 08/05/2021) [facility] of [facility] illness Narrative* Problem Noted Date Resolved Date Weakness 05/05/2020 06/15/2020 Decreased mobility and endurance 05/05/2020 06/15/2020 documented as of this encounter (statuses as of 08/10/2021) [facility] of [facility] Narrative* Problem Noted Date Resolved Date Weakness 05/05/2020 06/15/2020 Decreased mobility and endurance 05/05/2020 06/15/2020 documented as of this encounter (statuses as of 08/11/2021) [facility] Narrative* Problem Noted Date Resolved Date Weakness 05/05/2020 06/15/2020 Decreased mobility and endurance 05/05/2020 06/15/2020 documented as of this encounter (statuses as of 08/13/2021) [facility] Narrative* Problem Noted Date Resolved Date Weakness 05/05/2020 06/15/2020 Decreased mobility and endurance 05/05/2020 06/15/2020 documented as of this encounter (statuses as of 08/27/2021) [facility] Narrative* Problem Noted Date Resolved Date Weakness 05/05/2020 06/15/2020 Decreased mobility and endurance 05/05/2020 06/15/2020 documented as of this encounter (statuses as of 09/06/2021) [facility] Narrative* Problem Noted Date Resolved Date Weakness 05/05/2020 06/15/2020 Decreased mobility and endurance 05/05/2020 06/15/2020 documented as of this encounter (statuses as of 09/08/2021) [facility] Narrative* Problem Noted Date Resolved Date Weakness 05/05/2020 06/15/2020 Decreased mobility and endurance 05/05/2020 06/15/2020 documented as of this encounter (statuses as of 09/17/2021) [facility] Narrative* Problem Noted Date Resolved Date Weakness 05/05/2020 06/15/2020 Decreased mobility and endurance 05/05/2020 06/15/2020 documented as of this encounter (statuses as of 09/20/2021) [facility] Narrative* Problem Noted Date Resolved Date Weakness 05/05/2020 06/15/2020 Decreased mobility and endurance 05/05/2020 06/15/2020 documented as of this encounter (statuses as of 09/20/2021) [facility] Narrative* Problem Noted Date Resolved Date Weakness 05/05/2020 06/15/2020 Decreased mobility and endurance 05/05/2020 06/15/2020 documented as of this encounter (statuses as of 10/05/2021) [facility] Narrative* Problem Noted Date Resolved Date Weakness 05/05/2020 06/15/2020 Decreased mobility and endurance 05/05/2020 06/15/2020 documented as of this encounter (statuses as of 10/05/2021) [facility] Narrative* Problem Noted Date Resolved Date Weakness 05/05/2020 06/15/2020 Decreased mobility and endurance 05/05/2020 06/15/2020 documented as of this encounter (statuses as of 10/14/2021) [facility] Narrative* Problem Noted Date Resolved Date Weakness 05/05/2020 06/15/2020 Decreased mobility and endurance 05/05/2020 06/15/2020 documented as of this encounter (statuses as of 10/26/2021) [facility] Narrative* Problem Noted Date Resolved Date Weakness 05/05/2020 06/15/2020 Decreased mobility and endurance 05/05/2020 06/15/2020 documented as of this encounter (statuses as of 10/27/2021) [address]02-2021 History of Past illness Narrative* Problem Noted Date Resolved Date Weakness 05/05/2020 06/15/2020 Decreased mobility and endurance 05/05/2020 06/15/2020 documented as of this encounter (statuses as of 11/01/2021) [facility] Narrative* Problem Noted Date Resolved Date Weakness 05/05/2020 06/15/2020 Decreased mobility and endurance 05/05/2020 06/15/2020 documented as of this encounter (statuses as of 11/05/2021) [facility] Narrative* Problem Noted Date Resolved Date Weakness 05/05/2020 06/15/2020 Decreased mobility and endurance 05/05/2020 06/15/2020 documented as of this encounter (statuses as of 11/09/2021) [facility] of [facility] illness Narrative* Problem Noted Date Resolved Date Weakness 05/05/2020 06/15/2020 Decreased mobility and endurance 05/05/2020 06/15/2020 documented as of this encounter (statuses as of 11/18/2021) [facility] of Past illness Narrative* Problem Noted Date Resolved Date Weakness 05/05/2020 06/15/2020 Decreased mobility and endurance 05/05/2020 06/15/2020 documented as of this encounter (statuses as of 11/22/2021) [facility] Narrative* Problem Noted Date Resolved Date Weakness 05/05/2020 06/15/2020 Decreased mobility and endurance 05/05/2020 06/15/2020 documented as of this encounter (statuses as of 11/30/2021) [facility] Narrative* Problem Noted Date Resolved Date Weakness 05/05/2020 06/15/2020 Decreased mobility and endurance 05/05/2020 06/15/2020 documented as of this encounter (statuses as of 12/03/2021) [facility] Narrative* Problem Noted Date Resolved Date Weakness 05/05/2020 06/15/2020 Decreased mobility and endurance 05/05/2020 06/15/2020 documented as of this encounter (statuses as of 12/20/2021) [facility] Narrative* Problem Noted Date Resolved Date Weakness 05/05/2020 06/15/2020 Decreased mobility and endurance 05/05/2020 06/15/2020 documented as of this encounter (statuses as of 12/28/2021) [facility] Narrative* Problem Noted Date Resolved Date Weakness 05/05/2020 06/15/2020 Decreased mobility and endurance 05/05/2020 06/15/2020 documented as of this encounter (statuses as of 01/04/2022) [facility] Narrative* Problem Noted Date Resolved Date Weakness 05/05/2020 06/15/2020 Decreased mobility and endurance 05/05/2020 06/15/2020 documented as of this encounter (statuses as of 01/07/2022) [facility] Narrative* Problem Noted Date Resolved Date Weakness 05/05/2020 06/15/2020 Decreased mobility and endurance 05/05/2020 06/15/2020 documented as of this encounter (statuses as of 01/14/2022) [facility] Narrative* Problem Noted Date Resolved Date Weakness 05/05/2020 06/15/2020 Decreased mobility and endurance 05/05/2020 06/15/2020 documented as of this encounter (statuses as of 01/14/2022) [facility] Narrative* Problem Noted Date Diagnosed Date Resolved Date Weakness 05/05/2020 06/15/2020 Decreased mobility and endurance 05/05/2020 06/15/2020 documented as of this encounter (statuses as of 02/07/2023) [facility] Diagnosis Malignant neoplasm of rectosigmoid [...] Unspecified essential hypertension [facility] Diagnosis Hospital discharge follow-up- Primary [...] other eye conditions documented in this encounter [facility]* Diagnosis Abscess of neck- Primary Cellulitis [...] 35-39.9 Obesity, unspecified documented in this encounter [facility] [facility] Diagnosis Benign prostatic hyperplasia with nocturia- Primary Hematuria, microscopic Microscopic hematuria Screening PSA (prostate specific antigen) Special screening for malignant neoplasm of prostate Nocturia [facility] Diagnosis Hypertension, essential- Primary Unspecified [...] of both eyes documented in this encounter [facility] note* Diagnosis Glaucoma suspect of both eyes- Primary Preglaucoma, 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 without macular edema associated with type 2 diabetes mellitus (HCC) Nuclear senile cataract of both eyes [facility] Diagnosis Hypertension, essential- Primary Unspecified [...] of right eye [facility] Diagnosis Stage 3a chronic kidney disease (HCC)- Primary Type 2 diabetes mellitus with stage 3a chronic kidney disease, with long-term current use of insulin ([facility]) Hypertension, essential Unspecified essential hypertension Mixed hyperlipidemia Chronic bilateral low back pain with left-sided sciatica Marijuana use Cannabis abuse, unspecified Vitamin D deficiency Unspecified vitamin D deficiency Obesity, Class II, BMI 35-39.9 Obesity, unspecified Severe episode of recurrent major depressive disorder, without psychotic features ([facility]) [facility] Diagnosis Current moderate episode of major depressive disorder without prior episode (HCC)- Primary [facility] Diagnosis Episode of recurrent major depressive disorder, unspecified depression episode severity (HCC)- Primary [facility] Diagnosis Hypertension, essential- Primary Unspecified essential hypertension Bilateral leg edema Edema Diabetes mellitus due to underlying condition, uncontrolled, with hyperglycemia ([facility]) H/O medication noncompliance Personal history of noncompliance [...] mood disorder Stage 3a chronic kidney disease ([facility]) Encounter for immunization Need for other specified prophylactic vaccination against single bacterial disease [facility] Needs assistance with community resources- Primary Distressed about housing issues Other specified housing or economic circumstances documented in this encounter [facility] note* Diagnosis Hospital discharge follow-up- Primary Other [...] of insulin (HCC) [facility] Diagnosis Nocturia Screening PSA (prostate specific antigen) Special screening for malignant neoplasm of prostate Hematuria, microscopic Microscopic hematuria Benign prostatic hyperplasia with nocturia documented in this encounter [facility] note* Diagnosis Hypertension, essential- Primary Unspecified essential [...] unspecified vomiting type [facility] Diagnosis History of rectal cancer- Primary Personal history of malignant neoplasm of rectum, rectosigmoid junction, and anus Pulmonary nodules Other nonspecific abnormal finding of lung field Hip pain Pain in joint, pelvic region and thigh Spinal stenosis of lumbar region with neurogenic claudication Spinal stenosis, lumbar region, with neurogenic claudication [facility] Diagnosis OPENED IN ERROR- Primary To allow closing an encounter opened in error (used in SmartSet) documented [facility] Diagnosis Hypertension, essential- Primary Unspecified [...] extremity edema Edema [facility] Diagnosis Pain in hip- Primary Pain in joint, pelvic region and thigh Lumbar back pain with radiculopathy affecting lower extremity Chronic left hip pain Pain in joint, pelvic region and thigh documented [facility] Diagnosis Nuclear senile cataract of both eyes- Primary Pain of left hip [facility] Diagnosis Encounter for annual physical [...] of right eye [facility] Diagnosis Chronic left hip pain Pain in joint, pelvic region and thigh Nuclear senile cataract of right eye [facility] Diagnosis Chronic left hip pain Pain in joint, pelvic region and thigh Nuclear senile cataract of right eye [facility] Diagnosis History of rectal cancer- Primary Personal history of malignant neoplasm of rectum, rectosigmoid junction, and anus Nuclear senile cataract of right eye [facility] Diagnosis Lumbar back pain with radiculopathy affecting lower extremity- Primary Chronic left hip pain Pain in joint, pelvic region and thigh Spinal stenosis of lumbar region, unspecified whether neurogenic claudication present Lumbar radiculopathy Thoracic or lumbosacral neuritis or radiculitis, unspecified Chronic bilateral low back pain with left-sided sciatica Nuclear senile cataract of right eye [facility] Diagnosis Pseudophakia of both eyes- Primary Lens replaced by other means [facility] Diagnosis Lumbar back pain with radiculopathy affecting lower extremity- Primary Chronic bilateral low back pain with left-sided sciatica Lumbar back pain with radiculopathy affecting lower extremity- Primary [facility] Diagnosis Hospital discharge follow-up- Primary [...] region and thigh [facility]* Diagnosis Precordial pain- Primary OTT [...] Unspecified essential hypertension [facility] Diagnosis OTT (dyspnea on exertion) Other dyspnea and respiratory abnormality [facility] Diagnosis Precordial pain OTT (dyspnea on exertion) Other dyspnea and respiratory abnormality Primary hypertension Unspecified essential hypertension documented [facility] Diagnosis Hypertension, essential- Primary Unspecified [...] or radiculitis, unspecified [facility] Diagnosis Primary osteoarthritis of left hip- Primary Primary localized osteoarthrosis, pelvic region and thigh Primary osteoarthritis of left hip Primary localized osteoarthrosis, pelvic region and thigh documented [facility] Diagnosis Poorly controlled type 2 diabetes mellitus (HCC) Type II or unspecified type diabetes mellitus without mention of complication, not stated as uncontrolled documented in this encounter [facility] note* Diagnosis Anemia of renal disease- Primary Anemia in chronic kidney disease Stage 3b chronic kidney disease (HCC) Vitamin D deficiency Unspecified vitamin D deficiency Other proteinuria documented in this encounter [facility] note* Diagnosis Nocturia- Primary Benign prostatic hyperplasia with nocturia Screening PSA (prostate specific antigen) Special screening for malignant neoplasm of prostate documented in this encounter [facility] note* Diagnosis Type 2 diabetes mellitus with both eyes affected by moderate nonproliferative retinopathy without macular edema, with long-term current use of insulin (HCC)- Primary Pseudophakia of both eyes Lens replaced by other means documented in this encounter [facility] note* Diagnosis Anemia of renal disease- Primary [...] (of renal origin) documented in this encounter [facility] note* Diagnosis History of rectal cancer- Primary Personal history of malignant neoplasm of rectum, rectosigmoid junction, and anus documented in this encounter [facility] note* Diagnosis Other specified postprocedural states- Primary Spinal stenosis, lumbar region with neurogenic claudication documented in this encounter [facility]* Diagnosis Pre-op examination- Primary Preoperative examination, [...] at today's visit. [facility]* Diagnosis Pre-op examination- Primary Preoperative examination, [...] and bone disorder [facility] Diagnosis Pre-op examination- Primary Preoperative [...] with long-term current use of insulin ([facility]) Obesity, Class II, BMI 35-39.9 Obesity, unspecified [...] chronic dialysis (HCC) Diabetes mellitus with nephropathy ([facility]) Type II or unspecified type diabetes mellitus with renal manifestations, not stated as uncontrolled Dietary counseling and surveillance Dietary surveillance and counseling Vitamin D deficiency Unspecified vitamin D deficiency Hypertension, essential Unspecified essential hypertension Hyperuricemia Other abnormal blood chemistry Other proteinuria [facility] noteNo assessment information availableWMcCull[facility] Work Phone: Evaluation note* Diagnosis Chills- Primary Chills (without fever) Chills Chills (without fever) Shakes Abnormal involuntary movements History of chronic renal failure Elevated lactic acid level Chronic pain syndrome documented in this encounter [facility] Plan of care note* Visit Details Visit Type -SN SOC Discipline -Mcfp Problems Problem Description Start Date Status Goals [...] 10/22/2023 Active 1 goal linked to scheduled/documen krut intervention 3 goal interventions scheduled/document ed in [...] indicated to help with indigestion. Taking an jvco-yzp-[id number] probiotic or eating yogurt with live and [...] precautions/restrictio ns:spinal precautions documented in this encounter [facility] Plan of care note* Visit Details Visit Type -[facility] [place] Discipline -Knee Bolter Problems Problem Description Start Date Status Goals Interve ntions [facility] Referral Disciplines: Skilled Services 10/22/2023 Resolved on 10/26/2023 1 goal linked to scheduled/documen kurt intervention 1 goal intervention scheduled/document ed in this visit [facility] Gas Systems Worker Care Needs Disciplines: [facility] 10/26/2023 Resolved on 10/26/2023 1 goal linked to scheduled/documen kurt intervention 1 goal intervention scheduled/document ed in this visit [facility] General Evaluation and Treatment Disciplines: [facility] 10/26/2023 Resolved on 10/26/2023 1 goal linked to scheduled/documen kurt intervention 1 goal intervention scheduled/document ed in this visit [facility] Social/Emotional Support Disciplines: [facility] 10/26/2023 Resolved on 10/26/2023 1 goal linked to scheduled/documen kurt intervention 1 goal intervention scheduled/document ed in this visit [facility] Caregiver Willingness Disciplines: [facility] 10/26/2023 Resolved on 10/26/2023 1 goal linked to scheduled/documen kurt intervention 1 goal intervention scheduled/document ed in this visit Goals Goal Associated Problem Outcome Goal Met? Visit Notes Patient will be referred to additional discipline as needed COORDINATOR SKILL TRAINING PROGRAM Referral Completed Yes Patients Senior Care Care Needs Will Be Met Description: Patients usp care needs will be met by information provided and referrals made. COORDINATOR SKILL TRAINING PROGRAM Senior Care Care Needs Completed Yes Complete General Evaluation and Treatment Description: patient and caregiver will demonstrate compliance with and participation in the plan of treatment. COORDINATOR SKILL TRAINING PROGRAM General Evaluation and Treatment Completed Yes Provide Social/Emotional Support Description: patient will have adequate social emotional support as evidence by consistent contact with family and friends. COORDINATOR SKILL TRAINING PROGRAM Social/Emotional Support Completed Yes Determine Caregiver Willingness to Care for Patient Description: Caregiver will demonstrate willingness and ability to adequately care for the patient as evidence by providing a safe home environment and providing assistance with all ADL/IADL needs. COORDINATOR SKILL TRAINING PROGRAM Caregiver Willingness Completed Yes Interventions Intervention Associated Problem/Goal Status Variance Visit Notes COORDINATOR SKILL TRAINING PROGRAM evaluation and treatment Description: COORDINATOR SKILL TRAINING PROGRAM Referral eval and treat for Community Resources-[employer] or Mom's meals?, eligible for PASSPORT. Pt could use both for personal care and homemaking assist. Problem:COORDINATOR SKILL TRAINING PROGRAM Referral Goal:Patient will be referred to additional discipline as needed Completed ad terminal makeup operator care planning Problem:COORDINATOR SKILL TRAINING PROGRAM Gas Systems Worker Care Needs Goal:Patients Senior Care Care Needs Will Be Met Completed Patients usp care needs will be met by information provided and referral made to [facility] for PASSPORT. COORDINATOR SKILL TRAINING PROGRAM Assessment Problem:COORDINATOR SKILL TRAINING PROGRAM General Evaluation and Treatment Goal:Complete General Evaluation and Treatment Completed patient and caregiver fully participated in plan of treatment. Adequate social/emotional support Problem:COORDINATOR SKILL TRAINING PROGRAM Social/Emotional Support Goal:Provide Social/Emotional Support Completed patient has adequate natural supports. Caregiver Instruction Problem:COORDINATOR SKILL TRAINING PROGRAM Caregiver Willingness Goal:Determine Caregiver Willingness to Care for Patient Completed Caregiver demonstrates willingness and demonstrates ability to assitst in patients ADLs/IADLs needs. [facility] Visit Details Visit Type -SN ROUTINE Discipline -Mcfp Problems Problem Description Start Date Status Goals [...] and symptoms of complications Other (specify reason) RN ORTHO, incision dry Instruct on diabetes disease process [...] no blood return documented in this encounter [facility] Plan of care note* Visit [...] to call provider. [facility] Visit [...] time for safety documented in this encounter [facility] Plan of care note* Visit Details Visit Type -SN ROUTINE Discipline -Mcfp Problems Problem Description Start Date Status Goals [...] goal intervention scheduled/documen krut in this visit Diabetic Foot Care Disciplines: [...] and spinal precautions documented in this encounter [facility] Plan of care note* Visit Details Visit Type -PENETRATION TESTER ROUTINE Discipline -Physical Therapy Problems Problem Description [...] and activity guidelines. documented in this encounter [facility] Plan of care note* Visit Details Visit Type -SN ROUTINE Discipline -Mcfp Problems Problem Description Start Date Status Goals [...] and spinal precautions [facility] Visit [...] x 4 min [facility]* Visit Details Visit Type -PENETRATION TESTER ROUTINE Discipline -Physical Therapy Problems Problem Description [...] of sepsis Completed SPO2 Description: Notify Dr. cSott if pulse ox is <92% at rest. [...] and activity guidelines. [facility] Visit Details Visit Type -PENETRATION TESTER ROUTINE Discipline -Physical Therapy Problems Problem Description [...] and activity guidelines. [facility] Visit Details Visit Type -SN ROUTINE Discipline -Mcfp Problems Problem Description Start Date Status Goals [...] and spinal precautions documented in this encounter [facility] Plan of care note* Visit [...] occasional unilateral support [facility]* Visit Details Visit Type -PENETRATION TESTER ROUTINE Discipline -Physical Therapy Problems Problem Description [...] and activity guidelines. documented in this encounter [facility] Plan of care note* Visit Details Visit Type -SN DISC DC W VIS IT Discipline -Mcfp Problems Problem Description Start Date Status Goals [...] and spinal precautions documented in this encounter [facility] Plan of care note* Visit [...] home exercise program. documented in this encounter [facility] for referral (narrative)* Diagnostic Procedure Only (Routine) - Authorized Specialty Diagnoses / Procedures Referred By Contac t Referred To Contact XR IMAGING Diagnoses Pain in hip Chronic left hip pain Procedures XR INJ ARTHROGRAM HIP LEFT INJECTION HIP ARTHROGRAPHY W/O ANESTHESIA Binh Lake DO [address] [place] [id number] Xr Imaging Referral ID Status Reason Start Date Expiration Date Visits Requested Visits Authorized [id number] Authorized Auto-Generat ed Referral 07/01/2022 07/31/2023 1 1 * MRI/CT (Routine) - Authorized Specialty Diagnoses / Procedures Referred By Contac t Referred To Contact MR IMAGING Diagnoses Pain in hip Chronic left hip pain Procedures MRI ARTHROGRAM HIP LEFT MRI ANY JT LOWER EXTREM W/CONTRAST MATERIAL Binh Lake DO [address] [place] [address] Mr Imaging Referral ID Status Reason Start Date Expiration Date Visits Requested Visits Authorized [id number] Authorized Auto-Generat ed Referral 07/01/2022 07/31/2023 1 1 * Diagnostic Procedure Only (Routine) - Pending Review Specialty Diagnoses / Procedures Referred By Contac t Referred To Contact XR IMAGING Diagnoses Lumbar back pain with radiculopathy affecting lower extremity Procedures XR LUMBAR LIMITED 2V AP/LAT RADEX SPINE LUMBOSACRAL 2/3 VIEWS Binh Lake, DO [address] [place] [id number] Xr Imaging Referral ID Status Reason Start Date Expiration Date Visits Requested Visits Authorized [id number] Pending Review Auto-Generat ed Referral 07/01/2022 07/31/2023 1 1 * Diagnostic Procedure Only (Routine) - Pending Review Specialty Diagnoses / Procedures Referred By Contac t Referred To Contact XR IMAGING Diagnoses Pain in hip Chronic left hip pain Procedures XR PELVIS 1V AP RADIOLOGIC EXAMINATION PELVIS 1/2 VIEWS Binh Lake, DO [address] [place] [id number] Xr Imaging Referral ID Status Reason Start Date Expiration Date Visits Requested Visits Authorized [id number] Pending Review Auto-Generat ed Referral 07/01/2022 07/31/2023 1 1 [facility] for referral (narrative)* Diagnostic Procedure Only (Routine) - Closed Specialty Diagnoses / Procedures Referred By Contac t Referred To Contact XR IMAGING Diagnoses Pain in hip Chronic left hip pain Procedures XR INJ ARTHROGRAM HIP LEFT INJECTION HIP ARTHROGRAPHY W/O ANESTHESIA Binh Lake DO [address] [place] [id number] Xr Imaging Referral ID Status Reason Start Date Expiration Date V isits Requested Visits Authorized [id number] Closed Auto-Generate d Referral 07/01/2022 07/31/2023 1 1 [facility] for referral (narrative)* Outpatient Procedure (Routine) - Pending Review Specialty Diagnoses / Procedures Referred By Contac t Referred To Contact [facility] Diagnoses History of rectal cancer Procedures COLONOSCOPY SCREENING COLONOSCOPY FLX DX W/COLLJ SPEC WHEN PFRMD Artem Ahmadi MD [address] [address] [facility] [place] [address] [phone] Referral ID Status Reason Start Date Expiration Date Visits Requested Visits Authorized [id number] Pending Review Auto-Generat ed Referral 09/02/2022 09/03/2023 1 1 [facility] for referral (narrative)* Outpatient Procedure (Routine) - Authorized Specialty Diagnoses / Procedures Referred By Contac t Referred To Contact [facility] Diagnoses OTT (dyspnea on exertion) Procedures ECHO ECHO TTHRC R-T 2D W/WOM-MODE COMPL SPEC&COLR D Sukumar Toney MD [address] [place] [address] [facility] [place] [address] [place] [address] Referral ID Status Reason Start Date Expiration Date Visits Requested Visits Authorized [id number] Authorized Auto-Generat ed Referral 10/13/2022 10/13/2023 1 1 * Diagnostic Procedure Only (Routine) - Authorized Specialty Diagnoses / Procedures Referred By Contac t Referred To Contact [facility] Diagnoses Precordial pain OTT (dyspnea on exertion) Primary hypertension Procedures NM CARDIAC PERF STRESS/PHARM MYOCARDIAL SPECT MULTIPLE STUDIES Sukumar Toney MD [address] [place] [address] [facility] [address] [phone] Referral ID Status Reason Start Date Expiration Date Visits Requested Visits Authorized [id number] Authorized Auto-Generat ed Referral 10/13/2022 11/12/2023 1 1 T [facility] for referral (narrative)* Outpatient Procedure (Routine) - Closed Specialty Diagnoses / Procedures Referred By Vadim wiseman Referred To Contact [facility] Diagnoses OTT (dyspnea on exertion) Procedures ECHO ECHO TTHRC R-T 2D W/WOM-MODE COMPL SPEC&COLR D Sukumar Toney MD [address] [place] [address] [facility] [place] [address] [place] [address] Referral ID Status Reason Start Date Expiration Date V isits Requested Visits Authorized [id number] Closed Auto-Generate d Referral 10/13/2022 10/13/2023 1 1 T [facility] for referral (narrative)* Diagnostic Procedure Only (Routine) - Closed Specialty Diagnoses / Procedures Referred By Vadim wiseman Referred To Contact [facility] Diagnoses Precordial pain OTT (dyspnea on exertion) Primary hypertension Procedures NM CARDIAC PERF STRESS/PHARM MYOCARDIAL SPECT MULTIPLE STUDIES Sukumar Toney MD [address] [place] [address] [facility] [address] [phone] Referral ID Status Reason Start Date Expiration Date V isits Requested Visits Authorized [id number] Closed Auto-Generate d Referral 10/13/2022 11/12/2023 1 1 [facility] for referral (narrative)* Outpatient Procedure (Routine) - Pending Review Specialty Diagnoses / Procedures Referred By Vadim t Referred To Contact [facility] Diagnoses History of rectal cancer Procedures COLONOSCOPY SCREENING COLONOSCOPY FLX DX W/COLLJ SPEC WHEN Artem Osborne MD [address] [address] [facility] [address] [place] [address] Referral ID Status Reason Start Date Expiration Date Visits Requested Visits Authorized [id number] Pending Review Auto-Generat ed Referral 4 02/19/2025 1 1 [facility] for referral (narrative)No reason for referral information [facility] N[facility]* Diagnostic Procedure Only (Routine) - Closed Specialty Diagnoses / Procedures Referred By Contac t Referred To Contact XR IMAGING Diagnoses Pain in hip Chronic left hip pain Procedures XR INJ ARTHROGRAM HIP LEFT INJECTION HIP ARTHROGRAPHY W/O ANESTHESIA Binh Lake, DO [address] [place] [id number] Xr Imaging Referral ID Status Reason Start Date Expiration Date V isits Requested Visits Authorized [id number] Closed Auto-Generate d Referral 07/01/2022 07/31/2023 1 1 [facility] for visit Narrative* Outpatient Procedure (Routine) - Closed Specialty Diagnoses / Procedures Referred By Contac t Referred To Contact [facility] Diagnoses OTT (dyspnea on exertion) Procedures ECHO ECHO TTHRC R-T 2D W/WOM-MODE COMPL SPEC&COLR D Sukumar Toney MD [address] [place] [address] [facility] [address] [place] [address] Referral ID Status Reason Start Date Expiration Date V isits Requested Visits Authorized [id number] Closed Auto-Generate d Referral 10/13/2022 10/13/2023 1 1 [facility] for visit Narrative* Diagnostic Procedure Only (Routine) - Closed Specialty Diagnoses / Procedures Referred By Contac t Referred To Contact MOLECULAR & FUNCTIONAL IMAGING Diagnoses Precordial pain OTT (dyspnea on exertion) Primary hypertension Procedures NM CARDIAC PERF STRESS/PHARM MYOCARDIAL SPECT MULTIPLE STUDIES Sukumar Toney MD [address] [place] [address] Molecular & Functional Imaging [address] [id number] Referral ID Status Reason Start Date Expiration Date V isits Requested Visits Authorized [id number] Closed Auto-Generate d Referral 10/13/2022 11/12/2023 [facility] Procedure (Routine) - Closed Specialty Diagnoses / Procedures Referred By Contellis t Referred To Contact Diagnoses History of rectal cancer Procedures COLONOSCOPY SCREENING COLONOSCOPY FLX DX W/COLLJ SPEC WHEN Artem Osborne MD [address] [address] Phone: tel: fax: [address] [address] Phone: tel: Referral ID Status Reason Start Date Expiration Date V isits Requested Visits Authorized [id number] Closed Auto-Generate d Referral 05/13/2024 08/11/2024 1 1 [facility] Reason for Referral Status Reason Specialty Diagnoses / Procedures Referred By Contact Referred To Contact Ref Not Required PCP Requested Referral Diagnoses Anxiety with depression Procedures CONSULT [facility]IOR[facility] Belgica Herrera [address] [place] [address] Status Reason Specialty Diagnoses / Procedures Referred By Contact Referred To Contact Ref Not Required PCP Requested Referral Diagnoses Chronic bilateral low back pain with sciatica, sciatica laterality unspecified Procedures CONSULT TO PHYSICAL THERAPY (AG) Belgica Herrera [address] [place] [address] Status Reason Specialty Diagnoses / Procedures Referred By Contact Referred To Contact Authorized PCP Requested Referral Orthopedics Diagnoses Chronic bilateral low back pain with sciatica, sciatica laterality unspecified Procedures CONSULT TO ORTHOPAEDIC SURGERY NEW PATIENT VISIT LEVEL 5 Belgica Herrera [address] [place] [address] Status Reason Specialty Diagnoses / Procedures Referred By Contact Referred To Contact Authorized PCP Requested Referral Ent - Otolaryngology Diagnoses Dizziness Tinnitus aurium, bilateral Procedures CONSULT TO ENT NEW PATIENT VISIT LEVEL 5 Belgica Herrera [address] [place] [address] Status Reason Specialty Diagnoses / Procedures Referred By Contact Referred To Contact Authorized PCP Requested Referral Ophthalmology Diagnoses Diabetes mellitus due to underlying condition, uncontrolled, with hyperglycemia (HCC) Dizziness Procedures CONSULT TO OPHTHALMOLOGY NEW PATIENT VISIT LEVEL 5 Javier Belgica Brandon [facility] [place] [address] Status Reason Specialty Diagnoses / Procedures Referred By Contact Referred To Contact Authorized PCP Requested Referral Diagnoses Diabetes mellitus due to underlying condition, uncontrolled, with hyperglycemia (HCC) Obesity, Class II, BMI 35-39.9 Procedures CONSULT TO DIABETES EDUCATION NEW PATIENT VISIT LEVEL 5 Belgica Herrera [facility] [place] [address] Status Reason Specialty Diagnoses / Procedures Referred By Contact Referred To Contact Authorized PCP Requested Referral Orthopedics Diagnoses Left shoulder pain, unspecified chronicity Procedures CONSULT TO ORTHOPAEDIC SURGERY NEW PATIENT VISIT LEVEL 5 Belgica Herrera [facility] [place] [address] Status Reason Specialty Diagnoses / Procedures Referred By Contact Referred To Contact Ref Not Required PCP Requested Referral Diagnoses Left shoulder pain, unspecified chronicity Procedures CONSULT TO PHYSICAL THERAPY (AG) Belgica Herrera [facility] [place] [address] Status Reason Specialty Diagnoses / Procedures Referred By Contact Referred To Contact Authorized PCP Requested Referral Endocrinology Diagnoses Uncontrolled type 2 diabetes mellitus with hyperglycemia (HCC) Procedures CONSULT TO ENDOCRINOLOGY NEW PATIENT VISIT LEVEL 5 Belgica Herrera [facility] [place] [address] Status Reason Specialty Diagnoses / Procedures Referred By Contact Referred To Contact Authorized PCP Requested Referral Ophthalmology Diagnoses Screening for diabetic retinopathy Uncontrolled type 2 diabetes mellitus with hyperglycemia (HCC) Procedures CONSULT TO OPHTHALMOLOGY NEW PATIENT VISIT LEVEL 5 Belgica Herrera [facility] [place] [address] Status Reason Specialty Diagnoses / Procedures Referred By Contact Referred To Contact Ref Not Required PCP Requested Referral Neurology Diagnoses Chronic nausea Chronic vertigo Procedures CONSULT TO NEUROLOG[place] [address] Status Reason Specialty Diagnoses / Procedures Referred By Contact Referred To Contact Authorized PCP Requested Referral Gastroenterology Diagnoses Drooling Procedures CONSULT TO GASTROENTEROLOGY NEW PATIENT VISIT LEVEL 5 Belgica Herrera [address] [place] [address] Status Reason Specialty Diagnoses / Procedures Referred By Contact Referred To Contact Authorized PCP Requested Referral Rheumatology Diagnoses Myalgia Procedures CONSULT TO RHEUM/IMMUN DISEASE NEW PATIENT VISIT LEVEL 5 Belgica Herrera [address] [place] [address] Specialty Diagnoses / Procedures Referred By Contac t Referred To Contact MR IMAGING Diagnoses Malignant neoplasm of rectosigmoid junction (HCC) Procedures MRI PELVIS WO/W IVCON MRI PELVIS W/WO CONTRAST Artem Ahmadi MD [address] [facility] [address] [place] [address] Mr Imaging Referral ID Status Reason Start Date Expiration Date V isits Requested Visits Authorized [id number] Closed Auto-Generate d Referral 06/10/2021 01/10/2022 1 1 Specialty Diagnoses / Procedures Referred By Contac t Referred To Contact Ophthalmology Diagnoses Screening for diabetic retinopathy Procedures CONSULT TO OPHTHALMOLOGY OFFICE/OUTPATIENT [facility] 60-74 MINUTES Belgica Vega DO [address] [facility] [address] [place] [address] Referral ID Status Reason Start Date Expiration Date Visits Requested Visits Authorized [id number] Authorized PCP Requested Referral 09/20/2021 09/20/2022 1 1 Specialty Diagnoses / Procedures Referred By Contac t Referred To Contact Nephrology Diagnoses Elevated serum creatinine Microalbuminuria Procedures CONSULT TO NEPHROLOGY OFFICE/OUTPATIENT [facility] MDM 60-74 MINUTES Belgica Vega DO [address] [facility] [address] [place] [address] Referral ID Status Reason Start Date Expiration Date Visits Requested Visits Authorized [id number] Authorized PCP Requested Referral 10/05/2021 10/05/2022 1 1 Specialty Diagnoses / Procedures Referred By Contac t Referred To Contact Psychology Diagnoses Anxiety and depression Difficulty controlling anger Oppositional defiant disorder with chronic irritability and anger Procedures CONSULT TO PSYCHOLOGY OFFICE/OUTPATIENT [facility] 60-74 MINUTES Belgica Vega DO [address] [place] [address] Referral ID Status Reason Start Date Expiration Date Visits Requested Visits Authorized [id number] Pending Review PCP Requested Referral 01/03/2022 01/03/2023 1 1 Specialty Diagnoses / Procedures Referred By Contac t Referred To Contact [facility] Diagnoses Chronic bilateral low back pain with left-sided sciatica Procedures CONSULT TO [facility] OFFICE/OUTPATIENT [facility] 60-74 MINUTES Billy Martinez MD [address] [place] [address] Referral ID Status Reason Start Date Expiration Date Visits Requested Visits Authorized [id number] Authorized PCP Requested Referral 2 01/17/2023 1 1 Specialty Diagnoses / Procedures Referred By Contac t Referred To Contact Endocrinology Diagnoses Type 2 diabetes mellitus with stage 3a chronic kidney disease, with long-term current use of insulin (HCC) Obesity, Class II, BMI 35-39.9 Procedures CONSULT TO ENDOCRINOLOGY OFFICE/OUTPATIENT [facility] 60-74 MINUTES Billy Martinez MD [address] [place] [address] Referral ID Status Reason Start Date Expiration Date Visits Requested Visits Authorized [id number] Authorized PCP Requested Referral 2 01/17/2023 1 1 Specialty Diagnoses / Procedures Referred By Contac t Referred To Contact Endocrinology Diagnoses Diabetes mellitus due to underlying condition, uncontrolled, with hyperglycemia (HCC) Procedures CONSULT TO ENDOCRINOLOGY OFFICE/OUTPATIENT [facility] 60-74 MINUTES Belgica Vega DO [address] [place] [address] Referral ID Status Reason Start Date Expiration Date Visits Requested Visits Authorized [id number] Authorized PCP Requested Referral 2 03/01/2023 1 1 Specialty Diagnoses / Procedures Referred By Contac t Referred To Contact Oncology Diagnoses Malignant neoplasm of rectum (HCC) Procedures CONSULT TO ONCOLOGY OFFICE/OUTPATIENT [facility] 60-74 MINUTES Belgica Vega DO [address] [address] Referral ID Status Reason Start Date Expiration Date Visits Requested Visits Authorized [id number] Pending Review PCP Requested Referral 05/18/2022 05/18/2023 1 1 Specialty Diagnoses / Procedures Referred By Contac t Referred To Contact CT IMAGING Diagnoses Pulmonary nodules Procedures CT CHEST WO IVCON DIAGNOSTIC COMPUTED TOMOGRAPHY THORAX W/O CNTRST Rory Mendoza MD [address] [place] [address] Ct Imaging Referral ID Status Reason Start Date Expiration Date Visits Requested Visits Authorized [id number] Pending Review Auto-Generat ed Referral 06/05/2022 07/05/2023 1 1 Specialty Diagnoses / Procedures Referred By Contac t Referred To Contact Orthopedics Diagnoses Hip pain Procedures CONSULT TO ORTHOPAEDICS OFFICE/OUTPATIENT [facility] 60-74 MINUTES Rory Mendoza MD [address] [place] [address] Referral ID Status Reason Start Date Expiration Date Visits Requested Visits Authorized [id number] Pending Review PCP Requested Referral 06/01/2022 06/01/2023 1 1 Specialty Diagnoses / Procedures Referred By Contac t Referred To Contact Podiatry Diagnoses Diabetic peripheral neuropathy associated with type 2 diabetes mellitus (HCC) Onychomycosis Procedures CONSULT TO PODIATRY OFFICE/OUTPATIENT [facility] 60-74 MINUTES Belgica Vega DO [address] [place] [address] Referral ID Status Reason Start Date Expiration Date Visits Requested Visits Authorized [id number] Pending Review PCP Requested Referral 08/12/2022 08/12/2023 1 1 Specialty Diagnoses / Procedures Referred By Contac t Referred To Contact MR IMAGING Diagnoses Pain in hip Chronic left hip pain Procedures MRI ARTHROGRAM HIP LEFT MRI ANY JT LOWER EXTREM W/CONTRAST MATERIAL Binh Lake DO [address] [place] [address] Mr Imaging Referral ID Status Reason Start Date Expiration Date V isits Requested Visits Authorized [id number] Closed Auto-Generate d Referral 07/01/2022 07/31/2023 1 [...] Binh Lake, DO [address] [address] Mr Imaging Referral ID Status Reason Start Date Expiration Date Visits Requested Visits Authorized [id number] Authorized Auto-Generat ed Referral 09/02/2022 10/02/2023 1 [...] present Procedures CONSULT TO PAIN MGT OFFICE/OUTPATIENT [facility] 60-74 MINUTES Binh Lake, DO [address] [address] Luis Carlos Lee MD [address] [place] [address] Referral ID Status Reason Start Date Expiration Date Visits Requested Visits Authorized [id number] Pending Review PCP Requested Referral 09/02/2022 09/02/2023 1 1 Specialty Diagnoses / Procedures Referred By Contac t Referred To Contact Orthopedics Diagnoses Lumbar back pain with radiculopathy affecting lower extremity Chronic bilateral low back pain with left-sided sciatica Procedures CONSULT TO ORTHOPAEDICS OFFICE/OUTPATIENT [facility] 60-74 MINUTES Binh Lake, DO [address] [address] Emerson Glaser MD [address] [place] [address] Referral ID Status Reason Start Date Expiration Date Visits Requested Visits Authorized [id number] Pending Review PCP Requested Referral 09/23/2022 12/22/2022 1 1 Specialty Diagnoses / Procedures Referred By Contac t Referred To Contact Dermatology Diagnoses Hidradenitis suppurativa Cutaneous abscess of abdominal wall Procedures CONSULT TO DERMATOLOGY OFFICE/OUTPATIENT [facility] 60-74 MINUTES Belgica Vega DO [address] [place] [address] Referral ID Status Reason Start Date Expiration Date Visits Requested Visits Authorized [id number] Pending Review PCP Requested Referral 09/28/2022 09/28/2023 1 1 Specialty Diagnoses / Procedures Referred By Contac t Referred To Contact Nephrology Diagnoses Stage 3 chronic kidney disease, unspecified whether stage 3a or 3b CKD (HCC) Hyponatremia Procedures CONSULT TO NEPHROLOGY OFFICE/OUTPATIENT [facility] 60-74 MINUTES Belgica Vega DO [address] [place] [address] Referral ID Status Reason Start Date Expiration Date Visits Requested Visits Authorized [id number] Pending Review PCP Requested Referral 09/28/2022 09/28/2023 1 1 Specialty Diagnoses / Procedures Referred By Contac t Referred To Contact Cardiology Diagnoses Myocardial infarction due to demand ischemia (HCC) Procedures CONSULT TO CARDIOLOGY OFFICE/OUTPATIENT [facility] 60-74 MINUTES Belgica Vega DO [address] [place] [address] Referral ID Status Reason Start Date Expiration Date Visits Requested Visits Authorized [id number] Pending Review PCP Requested Referral 09/28/2022 12/27/2022 1 1 Specialty Diagnoses / Procedures Referred By Contac t Referred To Contact Neurology Diagnoses Chronic bilateral low back pain with left-sided sciatica Spinal stenosis of lumbar region with neurogenic claudication Chronic left hip pain Lumbar radiculopathy Procedures CONSULT TO NEUROLOGY OFFICE/OUTPATIENT [facility] 60-74 MINUTES Belgica Vega DO [address] [place] [address] Referral ID Status Reason Start Date Expiration Date Visits Requested Visits Authorized [id number] Pending Review PCP Requested Referral 11/04/2022 11/04/2023 1 1 Specialty Diagnoses / Procedures Referred By Contac t Referred To Contact Dermatology Diagnoses Hidradenitis suppurativa Procedures CONSULT TO DERMATOLOGY OFFICE/OUTPATIENT [facility] 60-74 MINUTES Belgica Vega DO [address] [place] [address] Referral ID Status Reason Start Date Expiration Date Visits Requested Visits Authorized [id number] Pending Review PCP Requested Referral 11/04/2022 11/04/2023 [...] INDIV EACH 15 RI Belgica Vega DO [address] [place] [address] Referral ID Status Reason Start Date Expiration Date Visits Requested Visits Authorized [id number] Pending Review PCP Requested Referral 11/04/2022 11/04/2023 1 1 Specialty Diagnoses / Procedures Referred By Contac t Referred To Contact Endocrinology Diagnoses Diabetes mellitus due to underlying condition, uncontrolled, with hyperglycemia (HCC) H/O medication noncompliance Procedures CONSULT TO ENDOCRINOLOGY OFFICE/OUTPATIENT [facility] MDM 60-74 MINUTES Belgica Vega DO [address] [place] [address] Referral ID Status Reason Start Date Expiration Date Visits Requested Visits Authorized [id number] Pending Review PCP Requested Referral 11/04/2022 11/04/2023 1 1 Specialty Diagnoses / Procedures Referred By Contac t Referred To Contact Pain Management Diagnoses Chronic pain syndrome Cancer associated pain Chronic bilateral low back pain with left-sided sciatica Spinal stenosis of lumbar region with neurogenic claudication Lumbar radiculopathy Procedures CONSULT TO PAIN MGT Belgica Vega DO [address] [place] [address] Referral ID Status Reason Start Date Expiration Date Visits Requested Visits Authorized [id number] Ref Not Required PCP Requested Referral 12/23/2022 12/23/2023 1 1 History of Present Illness * Belgica Herrera - 02/14/2020 4:48 PM EST Belgica Herrera DO [address] [place] [address] Visit Date: February 14, 2020 Mr.Jim Najma Ashton Date of : 1960 MRN/E #: [id number] History of Present Illness José Manuel Ashton is a 59 year old male. Patient presents to the clinic today for new patient visit HPI Patient is new to me. Patient is here for physical exam. Pt is from [place]. Patient desires handicap placard on the basis [...] ICD10: E11.9 The patient is new to ca. - Check HgA1C and fasting lipid panel [...] 3:30 PM EST Belgica Herrera DO [address] [place] [address] Visit Date: February 20, 2020 Mr.Jim Najma Ashton Date of : 1960 MRN/E #: [id number] History of Present Illness José Manuel Ashton [...] want to check BS. Pt states [facility] ran out of [employer] met. Was told they would call once get in.was suppose to be in yesterday but they never called. Pt states he will check with them. Pt indicates wants to avoid shots, dislikes needles. Pt recalls aic being 8-9 when on [employer], it wasn't 13. 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 Has hx of of bad [...] 02/17/2020 1.62 1.00 - 4.00 k/uL Final Murray% 02/17/2020 9.2 % Final Abs Murray 02/17/2020 0.73 <0.87 k/uL Final Eosin% 02/17/2020 [...] 322* 74 - 99 mg/dL Final The [place] Diabetes Association (ADA) provides guidance for cutoff [...] Standards of Medical Care in Diabetes 2016, [place] [employer]. Diabetes Care. 2016.39(Suppl 1). BUN [...] Desk Reference: National Heart, Lung, and Blood [facility]. National Institutes of Health. 2001: NIH Publication No. 01-3305. 2. An International Atherosclerosis Society position paper: global recommendations for the management of dyslipidemia: executive summary, Atherosclerosis. 2014: 232(2):410-413. PSA 02/17/2020 0.75 0.00 - 3.90 ng/mL Final Total PSA test methodology used is the Direct Chemiluminometric technology. TSH 02/17/2020 1.160 0.270 - 4.200 uU/mL Final Hemoglobin A1C 02/17/2020 13.2* 4.3 - 5.6 % Final [place] Diabetes [employer] guidelines indicate that patients with HgbA1c in the range 5.7-6.4% are at increased risk for development of diabetes, and intervention by lifestyle modification may be beneficial. HgbA1c greater or equal to 6.5% is considered diagnostic of diabetes. Estimated Average Glucose 02/17/2020 332 mg/dL Final eAG: (Estimated average glucose) is a calculated value from HgbA1c and is human resources representative of the average blood glucose level [...] 12 Combo (Ag/Ab) 02/17/2020 Nonreactive Nonreactive Final [place] Rev. Code 3701.243(E): This information has been [...] 3:52 PM EST Belgica Herrera DO [address] [place] [address] Visit Date: March 23, 2020 Mr.Jim Najma Ashton Date of : 1960 MRN/E #: [id number] History of Present Illness José Manuel Ashton [...] 02/17/2020 1.62 1.00 - 4.00 k/uL Final Murray% 02/17/2020 9.2 % Final Abs Murray 02/17/2020 0.73 <0.87 k/uL Final Eosin% 02/17/2020 [...] 322* 74 - 99 mg/dL Final The [place] Diabetes Association (ADA) provides guidance for cutoff [...] Standards of Medical Care in Diabetes 2016, [place] Diabetes [employer]. Diabetes Care. 2016.39(Suppl 1). BUN [...] Desk Reference: National Heart, Lung, and Blood [place]. National Institutes of Health. 2001: NIH Publication No. 01-3305. 2. An International Atherosclerosis Society position paper: global recommendations for the management of dyslipidemia: executive summary, Atherosclerosis. 2014: 232(2):410-413. PSA 02/17/2020 0.75 0.00 - 3.90 ng/mL Final Total PSA test methodology used is the Direct Chemiluminometric technology. TSH 02/17/2020 1.160 0.270 - 4.200 uU/mL Final Hemoglobin A1C 02/17/2020 13.2* 4.3 - 5.6 % Final [place] Diabetes [employer] guidelines indicate that patients with HgbA1c in the range 5.7-6.4% are at increased risk for development of diabetes, and intervention by lifestyle modification may be beneficial. HgbA1c greater or equal to 6.5% is considered diagnostic of diabetes. Estimated Average Glucose 02/17/2020 332 mg/dL Final eAG: (Estimated average glucose) is a calculated value from HgbA1c and is human resources representative of the average blood glucose level [...] 12 Combo (Ag/Ab) 02/17/2020 Nonreactive Nonreactive Final [place] Rev. Code 3701.243(E): This information has been [...] 04/27/2020 3:51 PM EST Belgica Herrera DO [address] [place] [address] Visit Date: April 27, 2020 Mr.Jim Najma Ashton Date of : 1960 MRN/E #: [id number] History of Present Illness José Manuel Ashton [...] 02/17/2020 1.62 1.00 - 4.00 k/uL Final Murray% 02/17/2020 9.2 % Final Abs Murray 02/17/2020 0.73 <0.87 k/uL Final Eosin% 02/17/2020 [...] 322* 74 - 99 mg/dL Final The [place] Diabetes Association (ADA) provides guidance for cutoff [...] Standards of Medical Care in Diabetes 2016, [place] Diabetes [employer]. Diabetes Care. 2016.39(Suppl 1). BUN [...] Desk Reference: National Heart, Lung, and Blood [facility]. National Institutes of Health. 2001: NIH Publication No. 01-3305. 2. An International Atherosclerosis Society position paper: global recommendations for the management of dyslipidemia: executive summary, Atherosclerosis. 2014: 232(2):410-413. PSA 02/17/2020 0.75 0.00 - 3.90 ng/mL Final Total PSA test methodology used is the Direct Chemiluminometric technology. TSH 02/17/2020 1.160 0.270 - 4.200 uU/mL Final Hemoglobin A1C 02/17/2020 13.2* 4.3 - 5.6 % Final [place] [employer] guidelines indicate that patients with HgbA1c in the range 5.7-6.4% are at increased risk for development of diabetes, and intervention by lifestyle modification may be beneficial. HgbA1c greater or equal to 6.5% is considered diagnostic of diabetes. Estimated Average Glucose 02/17/2020 332 mg/dL Final eAG: (Estimated average glucose) is a calculated value from HgbA1c and is human resources representative of the average blood glucose level [...] 12 Combo (Ag/Ab) 02/17/2020 Nonreactive Nonreactive Final [place] Rev. Code 3701.243(E): This information has been [...] of Care: created on 05/05/20 through 06/16/20 [place] in home exercise program. Patient will follow [...] Planned: 12(TBD) Planned Treatment Interventions: Therapeutic exercise (26088);Neuromuscular re- education (04807);Manual therapy (43581);Therapeutic activities (19370);Self- alf management (52331);Gait Training (10408);Body Mechanics Training;E- Stim Unattended (77090);Ultrasound (26669) PLAN FOR NEXT VISIT: Hold outpatient PT at this time, patient to follow up with physician [facility] PT. Patient demonstrates good understanding of [...] Evaluation Billing: Jude: Evaluation - Moderate Complexity (85846) Therapeutic Exercise (01301): 1:1 time: 10 minutes (1 unit: 8-22 [...] Benedict (Criss) - 05/28/2020 12:52 PM EST [facility] CRS[facility] [address] [place] [address] Initial Intake Evaluation Patient Name: José Manuel [...] that he recently moved from [place] to [place] 3 years ago to be closer to [...] Personal History: The patient was born in [place], [place]. He was the youngest of 17 children born to his mother and father. Most of his siblings were in the home when he was born. He feels that his childhood was awesome. His mother worked as a homemaker. His father was a boom crane operator. He recalled both of his parents working all day long. Many of his siblings have . The patient went to high school in [place], [place]. He was not a good student. He never graduated. 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 One of his brothersmoved to [place] and he moved with him in 1983 at the age of 23. 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 When his brother got he moved into a [employer] where everybody had their own room. His brother still resides in [place] but he felt that there were other family members that he would like to be close to and moved back to [place] last December. Support Systems: At the present [...] Thought: Normal. Abstract Thinking: Normal. Thought Content: [place]. Cognition - Immediate Recall : Intact Remote [...] 05/28/2020 4:07 PM EST Belgica Herrera DO [address] [place] [address] Visit Date: May 28, 2020 Mr.Jim Najma Ashton Date of : 1960 MRN/E #: [id number] History of Present Illness José Manuel Ashton [...] Ketones, Urine 05/14/2020 Trace* Negative Final Specific [place], Ur 05/14/2020 1.042* 1.005 - 1.030 Final [...] 05/14/2020 10.5* 4.3 - 5.6 % Final [place] [employer] guidelines indicate that patients with HgbA1c in the range 5.7-6.4% are at increased risk for development of diabetes, and intervention by lifestyle modification may be beneficial. HgbA1c greater or equal to 6.5% is considered diagnostic of diabetes. Estimated Average Glucose 05/14/2020 255 mg/dL Final eAG: (Estimated average glucose) is a calculated value from HgbA1c and is human resources representative of the average blood glucose level [...] Desk Reference: National Heart, Lung, and Blood [place]. National Institutes of Health. 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 Advance Directive(s) 04/13/2021 1:40 AM Advance Directive(s) 04/12/2021 2:50 PM Advance Directive(s) 02/19/2021 5:11 PM Advance Directive(s) 01/08/2021 6:55 PM Advance Directive(s) 11/24/2020 6:01 AM Advance Directive(s) 09/21/2020 10:29 AM Advance Directive(s) 07/24/2020 7:09 AM Documents on File Type Date Recorded 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 Advance Directive(s) 09/02/2021 8:46 PM Advance Directive(s) 04/13/2021 1:40 AM Advance Directive(s) 04/12/2021 2:50 PM Advance Directive(s) 02/19/2021 5:11 PM Advance Directive(s) 01/08/2021 6:55 PM Advance Directive(s) 11/24/2020 6:01 AM Advance Directive(s) 09/21/2020 10:29 AM Advance Directive(s) 07/24/2020 7:09 AM Documents on File Type Date Recorded 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 Advance Directive(s) 09/06/2021 9:37 PM Advance Directive(s) 09/02/2021 8:46 PM Advance Directive(s) 04/13/2021 1:40 AM Advance Directive(s) 04/12/2021 2:50 PM Advance Directive(s) 02/19/2021 5:11 PM Advance Directive(s) 01/08/2021 6:55 PM Advance Directive(s) 11/24/2020 6:01 AM Advance Directive(s) 09/21/2020 10:29 AM Advance Directive(s) 07/24/2020 7:09 AM Documents on File Type Date Recorded 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 Advance Directive(s) 09/06/2021 9:37 PM [...] the event of a Fluress shortage, administer Ludell-Fluor 1 drop into both eyes as directed [...] or prosecute any alcohol or drug abuse patient.[facility] the event this information is protected by the Federal Confidentiality of Alcohol and Drug Abuse Patient Records regulations: The Federal rules restrict any use of the information to criminally investigate or prosecute any alcohol or drug abuse patient.[facility] HospitalIn the event this information is protected by the Federal Confidentiality of Alcohol and Drug Abuse Patient Records regulations: The Federal rules restrict any use of the information to criminally investigate or prosecute any alcohol or drug abuse patient.[facility] HospitalIn the event this information is protected by the Federal Confidentiality of Alcohol and Drug Abuse Patient Records regulations: The Federal rules restrict any use of the information to criminally investigate or prosecute any alcohol or drug abuse patient.[facility] HospitalIn the event this information is protected by the Federal Confidentiality of Alcohol and Drug Abuse Patient Records regulations: The Federal rules restrict any use of the information to criminally investigate or prosecute any alcohol or drug abuse patient.[facility] HospitalIn the event this information is protected by the Federal Confidentiality of Alcohol and Drug Abuse Patient Records regulations: The Federal rules restrict any use of the information to criminally investigate or prosecute any alcohol or drug abuse patient.[facility] HospitalIn the event this information is protected by the Federal Confidentiality of Alcohol and Drug Abuse Patient Records regulations: The Federal rules restrict any use of the information to criminally investigate or prosecute any alcohol or drug abuse patient.[facility] HospitalIn the event this information is protected by the Federal Confidentiality of Alcohol and Drug Abuse Patient Records regulations: The Federal rules restrict any use of the information to criminally investigate or prosecute any alcohol or drug abuse patient.[facility] HospitalIn the event this information is protected by the Federal Confidentiality of Alcohol and Drug Abuse Patient Records regulations: The Federal rules restrict any use of the information to criminally investigate or prosecute any alcohol or drug abuse patient.[facility] HospitalIn the event this information is protected by the Federal Confidentiality of Alcohol and Drug Abuse Patient Records regulations: The Federal rules restrict any use of the information to criminally investigate or prosecute any alcohol or drug abuse patient.[facility] HospitalIn the event this information is protected [...] or prosecute any alcohol or drug abuse patient.[facility] HospitalIn the event this information is protected by the Federal Confidentiality of Alcohol and Drug Abuse Patient Records regulations: The Federal rules restrict any use of the information to criminally investigate or prosecute any alcohol or drug abuse patient.[facility] HospitalIn the event this information is protected by the Federal Confidentiality of Alcohol and Drug Abuse Patient Records regulations: The Federal rules restrict any use of the information to criminally investigate or prosecute any alcohol or drug abuse patient.[facility] HospitalIn the event this information is protected by the Federal Confidentiality of Alcohol and Drug Abuse Patient Records regulations: The Federal rules restrict any use of the information to criminally investigate or prosecute any alcohol or drug abuse patient.[facility] HospitalIn the event this information is protected by the Federal Confidentiality of Alcohol and Drug Abuse Patient Records regulations: The Federal rules restrict any use of the information to criminally investigate or prosecute any alcohol or drug abuse patient.[facility] HospitalIn the event this information is protected by the Federal Confidentiality of Alcohol and Drug Abuse Patient Records regulations: The Federal rules restrict any use of the information to criminally investigate or prosecute any alcohol or drug abuse patient.[facility] HospitalIn the event this information is protected by the Federal Confidentiality of Alcohol and Drug Abuse Patient Records regulations: The Federal rules restrict any use of the information to criminally investigate or prosecute any alcohol or drug abuse patient.[facility] HospitalIn the event this information is protected by the Federal Confidentiality of Alcohol and Drug Abuse Patient Records regulations: The Federal rules restrict any use of the information to criminally investigate or prosecute any alcohol or drug abuse patient.[facility] HospitalIn the event this information is protected by the Federal Confidentiality of Alcohol and Drug Abuse Patient Records regulations: The Federal rules restrict any use of the information to criminally investigate or prosecute any alcohol or drug abuse patient.[facility] HospitalIn the event this information is protected by the Federal Confidentiality of Alcohol and Drug Abuse Patient Records regulations: The Federal rules restrict any use of the information to criminally investigate or prosecute any alcohol or drug abuse patient.[facility] HospitalIn the event this information is protected by the Federal Confidentiality of Alcohol and Drug Abuse Patient Records regulations: The Federal rules restrict any use of the information to criminally investigate or prosecute any alcohol or drug abuse patient.[facility] HospitalIn the event this information is protected by the Federal Confidentiality of Alcohol and Drug Abuse Patient Records regulations: The Federal rules restrict any use of the information to criminally investigate or prosecute any alcohol or drug abuse patient.[facility] HospitalIn the event this information is protected by the Federal Confidentiality of Alcohol and Drug Abuse Patient Records regulations: The Federal rules restrict any use of the information to criminally investigate or prosecute any alcohol or drug abuse patient.[facility] HospitalIn the event this information is protected by the Federal Confidentiality of Alcohol and Drug Abuse Patient Records regulations: The Federal rules restrict any use of the information to criminally investigate or prosecute any alcohol or drug abuse patient.[facility] HospitalIn the event this information is protected by the Federal Confidentiality of Alcohol and Drug Abuse Patient Records regulations: The Federal rules restrict any use of the information to criminally investigate or prosecute any alcohol or drug abuse patient.[facility] HospitalIn the event this information is protected by the Federal Confidentiality of Alcohol and Drug Abuse Patient Records regulations: The Federal rules restrict any use of the information to criminally investigate or prosecute any alcohol or drug abuse patient.[facility] HospitalIn the event this information is protected by the Federal Confidentiality of Alcohol and Drug Abuse Patient Records regulations: The Federal rules restrict any use of the information to criminally investigate or prosecute any alcohol or drug abuse patient.[facility] HospitalIn the event this information is protected by the Federal Confidentiality of Alcohol and Drug Abuse Patient Records regulations: The Federal rules restrict any use of the information to criminally investigate or prosecute any alcohol or drug abuse patient.[facility] HospitalIn the event this information is protected by the Federal Confidentiality of Alcohol and Drug Abuse Patient Records regulations: The Federal rules restrict any use of the information to criminally investigate or prosecute any alcohol or drug abuse patient.[facility] HospitalIn the event this information is protected by the Federal Confidentiality of Alcohol and Drug Abuse Patient Records regulations: The Federal rules restrict any use of the information to criminally investigate or prosecute any alcohol or drug abuse patient.[facility] HospitalIn the event this information is protected by the Federal Confidentiality of Alcohol and Drug Abuse Patient Records regulations: The Federal rules restrict any use of the information to criminally investigate or prosecute any alcohol or drug abuse patient.[facility] HospitalIn the event this information is protected by the Federal Confidentiality of Alcohol and Drug Abuse Patient Records regulations: The Federal rules restrict any use of the information to criminally investigate or prosecute any alcohol or drug abuse patient.[facility] HospitalIn the event this information is protected by the Federal Confidentiality of Alcohol and Drug Abuse Patient Records regulations: The Federal rules restrict any use of the information to criminally investigate or prosecute any alcohol or drug abuse patient.[facility] HospitalIn the event this information is protected by the Federal Confidentiality of Alcohol and Drug Abuse Patient Records regulations: The Federal rules restrict any use of the information to criminally investigate or prosecute any alcohol or drug abuse patient.[facility] HospitalIn the event this information is protected by the Federal Confidentiality of Alcohol and Drug Abuse Patient Records regulations: The Federal rules restrict any use of the information to criminally investigate or prosecute any alcohol or drug abuse patient.[facility] HospitalIn the event this information is protected by the Federal Confidentiality of Alcohol and Drug Abuse Patient Records regulations: The Federal rules restrict any use of the information to criminally investigate or prosecute any alcohol or drug abuse patient.[facility] HospitalIn the event this information is protected by the Federal Confidentiality of Alcohol and Drug Abuse Patient Records regulations: The Federal rules restrict any use of the information to criminally investigate or prosecute any alcohol or drug abuse patient.[facility] HospitalIn the event this information is protected by the Federal Confidentiality of Alcohol and Drug Abuse Patient Records regulations: The Federal rules restrict any use of the information to criminally investigate or prosecute any alcohol or drug abuse patient.[facility] HospitalIn the event this information is protected by the Federal Confidentiality of Alcohol and Drug Abuse Patient Records regulations: The Federal rules restrict any use of the information to criminally investigate or prosecute any alcohol or drug abuse patient.[facility] HospitalIn the event this information is protected by the Federal Confidentiality of Alcohol and Drug Abuse Patient Records regulations: The Federal rules restrict any use of the information to criminally investigate or prosecute any alcohol or drug abuse patient.[facility] HospitalIn the event this information is protected by the Federal Confidentiality of Alcohol and Drug Abuse Patient Records regulations: The Federal rules restrict any use of the information to criminally investigate or prosecute any alcohol or drug abuse patient.[facility] HospitalIn the event this information is protected by the Federal Confidentiality of Alcohol and Drug Abuse Patient Records regulations: The Federal rules restrict any use of the information to criminally investigate or prosecute any alcohol or drug abuse patient.[facility] HospitalIn the event this information is protected by the Federal Confidentiality of Alcohol and Drug Abuse Patient Records regulations: The Federal rules restrict any use of the information to criminally investigate or prosecute any alcohol or drug abuse patient.[facility] HospitalIn the event this information is protected by the Federal Confidentiality of Alcohol and Drug Abuse Patient Records regulations: The Federal rules restrict any use of the information to criminally investigate or prosecute any alcohol or drug abuse patient.[facility] HospitalIn the event this information is protected by the Federal Confidentiality of Alcohol and Drug Abuse Patient Records regulations: The Federal rules restrict any use of the information to criminally investigate or prosecute any alcohol or drug abuse patient.[facility] HospitalIn the event this information is protected by the Federal Confidentiality of Alcohol and Drug Abuse Patient Records regulations: The Federal rules restrict any use of the information to criminally investigate or prosecute any alcohol or drug abuse patient.[facility] HospitalIn the event this information is protected by the Federal Confidentiality of Alcohol and Drug Abuse Patient Records regulations: The Federal rules restrict any use of the information to criminally investigate or prosecute any alcohol or drug abuse patient.[facility] HospitalIn the event this information is protected by the Federal Confidentiality of Alcohol and Drug Abuse Patient Records regulations: The Federal rules restrict any use of the information to criminally investigate or prosecute any alcohol or drug abuse patient.[facility] HospitalIn the event this information is protected by the Federal Confidentiality of Alcohol and Drug Abuse Patient Records regulations: The Federal rules restrict any use of the information to criminally investigate or prosecute any alcohol or drug abuse patient.[facility] HospitalIn the event this information is protected by the Federal Confidentiality of Alcohol and Drug Abuse Patient Records regulations: The Federal rules restrict any use of the information to criminally investigate or prosecute any alcohol or drug abuse patient.[facility] HospitalIn the event this information is protected by the Federal Confidentiality of Alcohol and Drug Abuse Patient Records regulations: The Federal rules restrict any use of the information to criminally investigate or prosecute any alcohol or drug abuse patient.[facility] HospitalIn the event this information is protected by the Federal Confidentiality of Alcohol and Drug Abuse Patient Records regulations: The Federal rules restrict any use of the information to criminally investigate or prosecute any alcohol or drug abuse patient.[facility] HospitalIn the event this information is protected by the Federal Confidentiality of Alcohol and Drug Abuse Patient Records regulations: The Federal rules restrict any use of the information to criminally investigate or prosecute any alcohol or drug abuse patient.[facility] HospitalIn the event this information is protected by the Federal Confidentiality of Alcohol and Drug Abuse Patient Records regulations: The Federal rules restrict any use of the information to criminally investigate or prosecute any alcohol or drug abuse patient.[facility] HospitalIn the event this information is protected by the Federal Confidentiality of Alcohol and Drug Abuse Patient Records regulations: The Federal rules restrict any use of the information to criminally investigate or prosecute any alcohol or drug abuse patient.[facility] HospitalIn the event this information is protected by the Federal Confidentiality of Alcohol and Drug Abuse Patient Records regulations: The Federal rules restrict any use of the information to criminally investigate or prosecute any alcohol or drug abuse patient.[facility] HospitalIn the event this information is protected by the Federal Confidentiality of Alcohol and Drug Abuse Patient Records regulations: The Federal rules restrict any use of the information to criminally investigate or prosecute any alcohol or drug abuse patient.[facility] HospitalIn the event this information is protected by the Federal Confidentiality of Alcohol and Drug Abuse Patient Records regulations: The Federal rules restrict any use of the information to criminally investigate or prosecute any alcohol or drug abuse patient.[facility] HospitalIn the event this information is protected by the Federal Confidentiality of Alcohol and Drug Abuse Patient Records regulations: The Federal rules restrict any use of the information to criminally investigate or prosecute any alcohol or drug abuse patient.[facility] HospitalIn the event this information is protected [...] or prosecute any alcohol or drug abuse patient.[facility] HospitalIn the event this information is protected by the Federal Confidentiality of Alcohol and Drug Abuse Patient Records regulations: The Federal rules restrict any use of the information to criminally investigate or prosecute any alcohol or drug abuse patient.[facility] HospitalIn the event this information is protected by the Federal Confidentiality of Alcohol and Drug Abuse Patient Records regulations: The Federal rules restrict any use of the information to criminally investigate or prosecute any alcohol or drug abuse patient.[facility] HospitalIn the event this information is protected by the Federal Confidentiality of Alcohol and Drug Abuse Patient Records regulations: The Federal rules restrict any use of the information to criminally investigate or prosecute any alcohol or drug abuse patient.[facility] HospitalIn the event this information is protected by the Federal Confidentiality of Alcohol and Drug Abuse Patient Records regulations: The Federal rules restrict any use of the information to criminally investigate or prosecute any alcohol or drug abuse patient.[facility] HospitalIn the event this information is protected by the Federal Confidentiality of Alcohol and Drug Abuse Patient Records regulations: The Federal rules restrict any use of the information to criminally investigate or prosecute any alcohol or drug abuse patient.[facility] HospitalIn the event this information is protected by the Federal Confidentiality of Alcohol and Drug Abuse Patient Records regulations: The Federal rules restrict any use of the information to criminally investigate or prosecute any alcohol or drug abuse patient.[facility] HospitalIn the event this information is protected by the Federal Confidentiality of Alcohol and Drug Abuse Patient Records regulations: The Federal rules restrict any use of the information to criminally investigate or prosecute any alcohol or drug abuse patient.[facility] HospitalIn the event this information is protected by the Federal Confidentiality of Alcohol and Drug Abuse Patient Records regulations: The Federal rules restrict any use of the information to criminally investigate or prosecute any alcohol or drug abuse patient.[facility] HospitalIn the event this information is protected by the Federal Confidentiality of Alcohol and Drug Abuse Patient Records regulations: The Federal rules restrict any use of the information to criminally investigate or prosecute any alcohol or drug abuse patient.[facility] HospitalIn the event this information is protected by the Federal Confidentiality of Alcohol and Drug Abuse Patient Records regulations: The Federal rules restrict any use of the information to criminally investigate or prosecute any alcohol or drug abuse patient.[facility] HospitalIn the event this information is protected by the Federal Confidentiality of Alcohol and Drug Abuse Patient Records regulations: The Federal rules restrict any use of the information to criminally investigate or prosecute any alcohol or drug abuse patient.[facility] HospitalIn the event this information is protected by the Federal Confidentiality of Alcohol and Drug Abuse Patient Records regulations: The Federal rules restrict any use of the information to criminally investigate or prosecute any alcohol or drug abuse patient.[facility] HospitalIn the event this information is protected by the Federal Confidentiality of Alcohol and Drug Abuse Patient Records regulations: The Federal rules restrict any use of the information to criminally investigate or prosecute any alcohol or drug abuse patient.[facility] HospitalIn the event this information is protected by the Federal Confidentiality of Alcohol and Drug Abuse Patient Records regulations: The Federal rules restrict any use of the information to criminally investigate or prosecute any alcohol or drug abuse patient.[facility] HospitalIn the event this information is protected by the Federal Confidentiality of Alcohol and Drug Abuse Patient Records regulations: The Federal rules restrict any use of the information to criminally investigate or prosecute any alcohol or drug abuse patient.[facility] HospitalIn the event this information is protected by the Federal Confidentiality of Alcohol and Drug Abuse Patient Records regulations: The Federal rules restrict any use of the information to criminally investigate or prosecute any alcohol or drug abuse patient.[facility] HospitalIn the event this information is protected by the Federal Confidentiality of Alcohol and Drug Abuse Patient Records regulations: The Federal rules restrict any use of the information to criminally investigate or prosecute any alcohol or drug abuse patient.[facility] HospitalIn the event this information is protected by the Federal Confidentiality of Alcohol and Drug Abuse Patient Records regulations: The Federal rules restrict any use of the information to criminally investigate or prosecute any alcohol or drug abuse patient.[facility] HospitalIn the event this information is protected by the Federal Confidentiality of Alcohol and Drug Abuse Patient Records regulations: The Federal rules restrict any use of the information to criminally investigate or prosecute any alcohol or drug abuse patient.[facility] HospitalIn the event this information is protected by the Federal Confidentiality of Alcohol and Drug Abuse Patient Records regulations: The Federal rules restrict any use of the information to criminally investigate or prosecute any alcohol or drug abuse patient.[facility] HospitalIn the event this information is protected by the Federal Confidentiality of Alcohol and Drug Abuse Patient Records regulations: The Federal rules restrict any use of the information to criminally investigate or prosecute any alcohol or drug abuse patient.[facility] HospitalIn the event this information is protected by the Federal Confidentiality of Alcohol and Drug Abuse Patient Records regulations: The Federal rules restrict any use of the information to criminally investigate or prosecute any alcohol or drug abuse patient.[facility] HospitalIn the event this information is protected by the Federal Confidentiality of Alcohol and Drug Abuse Patient Records regulations: The Federal rules restrict any use of the information to criminally investigate or prosecute any alcohol or drug abuse patient.[facility] HospitalIn the event this information is protected by the Federal Confidentiality of Alcohol and Drug Abuse Patient Records regulations: The Federal rules restrict any use of the information to criminally investigate or prosecute any alcohol or drug abuse patient.[facility] HospitalIn the event this information is protected by the Federal Confidentiality of Alcohol and Drug Abuse Patient Records regulations: The Federal rules restrict any use of the information to criminally investigate or prosecute any alcohol or drug abuse patient.[facility] HospitalIn the event this information is protected by the Federal Confidentiality of Alcohol and Drug Abuse Patient Records regulations: The Federal rules restrict any use of the information to criminally investigate or prosecute any alcohol or drug abuse patient.[facility] HospitalIn the event this information is protected by the Federal Confidentiality of Alcohol and Drug Abuse Patient Records regulations: The Federal rules restrict any use of the information to criminally investigate or prosecute any alcohol or drug abuse patient.[facility] HospitalIn the event this information is protected by the Federal Confidentiality of Alcohol and Drug Abuse Patient Records regulations: The Federal rules restrict any use of the information to criminally investigate or prosecute any alcohol or drug abuse patient.[facility] HospitalIn the event this information is protected by the Federal Confidentiality of Alcohol and Drug Abuse Patient Records regulations: The Federal rules restrict any use of the information to criminally investigate or prosecute any alcohol or drug abuse patient.[facility] HospitalIn the event this information is protected by the Federal Confidentiality of Alcohol and Drug Abuse Patient Records regulations: The Federal rules restrict any use of the information to criminally investigate or prosecute any alcohol or drug abuse patient.[facility] HospitalIn the event this information is protected by the Federal Confidentiality of Alcohol and Drug Abuse Patient Records regulations: The Federal rules restrict any use of the information to criminally investigate or prosecute any alcohol or drug abuse patient.[facility] HospitalIn the event this information is protected by the Federal Confidentiality of Alcohol and Drug Abuse Patient Records regulations: The Federal rules restrict any use of the information to criminally investigate or prosecute any alcohol or drug abuse patient.[facility] HospitalIn the event this information is protected by the Federal Confidentiality of Alcohol and Drug Abuse Patient Records regulations: The Federal rules restrict any use of the information to criminally investigate or prosecute any alcohol or drug abuse patient.[facility] HospitalIn the event this information is protected by the Federal Confidentiality of Alcohol and Drug Abuse Patient Records regulations: The Federal rules restrict any use of the information to criminally investigate or prosecute any alcohol or drug abuse patient.[facility] HospitalIn the event this information is protected by the Federal Confidentiality of Alcohol and Drug Abuse Patient Records regulations: The Federal rules restrict any use of the information to criminally investigate or prosecute any alcohol or drug abuse patient.[facility] HospitalIn the event this information is protected by the Federal Confidentiality of Alcohol and Drug Abuse Patient Records regulations: The Federal rules restrict any use of the information to criminally investigate or prosecute any alcohol or drug abuse patient.[facility] HospitalIn the event this information is protected by the Federal Confidentiality of Alcohol and Drug Abuse Patient Records regulations: The Federal rules restrict any use of the information to criminally investigate or prosecute any alcohol or drug abuse patient.[facility] HospitalIn the event this information is protected by the Federal Confidentiality of Alcohol and Drug Abuse Patient Records regulations: The Federal rules restrict any use of the information to criminally investigate or prosecute any alcohol or drug abuse patient.[facility] HospitalIn the event this information is protected by the Federal Confidentiality of Alcohol and Drug Abuse Patient Records regulations: The Federal rules restrict any use of the information to criminally investigate or prosecute any alcohol or drug abuse patient.[facility] HospitalIn the event this information is protected by the Federal Confidentiality of Alcohol and Drug Abuse Patient Records regulations: The Federal rules restrict any use of the information to criminally investigate or prosecute any alcohol or drug abuse patient.[facility] HospitalIn the event this information is protected by the Federal Confidentiality of Alcohol and Drug Abuse Patient Records regulations: The Federal rules restrict any use of the information to criminally investigate or prosecute any alcohol or drug abuse patient.[facility] HospitalIn the event this information is protected by the Federal Confidentiality of Alcohol and Drug Abuse Patient Records regulations: The Federal rules restrict any use of the information to criminally investigate or prosecute any alcohol or drug abuse patient.[facility] HospitalIn the event this information is protected by the Federal Confidentiality of Alcohol and Drug Abuse Patient Records regulations: The Federal rules restrict any use of the information to criminally investigate or prosecute any alcohol or drug abuse patient.[facility] HospitalIn the event this information is protected by the Federal Confidentiality of Alcohol and Drug Abuse Patient Records regulations: The Federal rules restrict any use of the information to criminally investigate or prosecute any alcohol or drug abuse patient.[facility] HospitalIn the event this information is protected by the Federal Confidentiality of Alcohol and Drug Abuse Patient Records regulations: The Federal rules restrict any use of the information to criminally investigate or prosecute any alcohol or drug abuse patient.[facility] HospitalIn the event this information is protected by the Federal Confidentiality of Alcohol and Drug Abuse Patient Records regulations: The Federal rules restrict any use of the information to criminally investigate or prosecute any alcohol or drug abuse patient.[facility] HospitalIn the event this information is protected by the Federal Confidentiality of Alcohol and Drug Abuse Patient Records regulations: The Federal rules restrict any use of the information to criminally investigate or prosecute any alcohol or drug abuse patient.[facility] HospitalIn the event this information is protected by the Federal Confidentiality of Alcohol and Drug Abuse Patient Records regulations: The Federal rules restrict any use of the information to criminally investigate or prosecute any alcohol or drug abuse patient.[facility] HospitalIn the event this information is protected [...] or prosecute any alcohol or drug abuse patient.[facility] HospitalIn the event this information is protected by the Federal Confidentiality of Alcohol and Drug Abuse Patient Records regulations: The Federal rules restrict any use of the information to criminally investigate or prosecute any alcohol or drug abuse patient.[facility] HospitalIn the event this information is protected by the Federal Confidentiality of Alcohol and Drug Abuse Patient Records regulations: The Federal rules restrict any use of the information to criminally investigate or prosecute any alcohol or drug abuse patient.[facility] HospitalIn the event this information is protected by the Federal Confidentiality of Alcohol and Drug Abuse Patient Records regulations: The Federal rules restrict any use of the information to criminally investigate or prosecute any alcohol or drug abuse patient.[facility] HospitalIn the event this information is protected by the Federal Confidentiality of Alcohol and Drug Abuse Patient Records regulations: The Federal rules restrict any use of the information to criminally investigate or prosecute any alcohol or drug abuse patient.[facility] HospitalIn the event this information is protected by the Federal Confidentiality of Alcohol and Drug Abuse Patient Records regulations: The Federal rules restrict any use of the information to criminally investigate or prosecute any alcohol or drug abuse patient.[facility] HospitalIn the event this information is protected by the Federal Confidentiality of Alcohol and Drug Abuse Patient Records regulations: The Federal rules restrict any use of the information to criminally investigate or prosecute any alcohol or drug abuse patient.[facility] HospitalIn the event this information is protected by the Federal Confidentiality of Alcohol and Drug Abuse Patient Records regulations: The Federal rules restrict any use of the information to criminally investigate or prosecute any alcohol or drug abuse patient.[facility] HospitalIn the event this information is protected by the Federal Confidentiality of Alcohol and Drug Abuse Patient Records regulations: The Federal rules restrict any use of the information to criminally investigate or prosecute any alcohol or drug abuse patient.[facility] HospitalIn the event this information is protected by the Federal Confidentiality of Alcohol and Drug Abuse Patient Records regulations: The Federal rules restrict any use of the information to criminally investigate or prosecute any alcohol or drug abuse patient.[facility] HospitalIn the event this information is protected by the Federal Confidentiality of Alcohol and Drug Abuse Patient Records regulations: The Federal rules restrict any use of the information to criminally investigate or prosecute any alcohol or drug abuse patient.[facility] HospitalIn the event this information is protected by the Federal Confidentiality of Alcohol and Drug Abuse Patient Records regulations: The Federal rules restrict any use of the information to criminally investigate or prosecute any alcohol or drug abuse patient.[facility] HospitalIn the event this information is protected by the Federal Confidentiality of Alcohol and Drug Abuse Patient Records regulations: The Federal rules restrict any use of the information to criminally investigate or prosecute any alcohol or drug abuse patient.[facility] HospitalIn the event this information is protected by the Federal Confidentiality of Alcohol and Drug Abuse Patient Records regulations: The Federal rules restrict any use of the information to criminally investigate or prosecute any alcohol or drug abuse patient.[facility] HospitalIn the event this information is protected by the Federal Confidentiality of Alcohol and Drug Abuse Patient Records regulations: The Federal rules restrict any use of the information to criminally investigate or prosecute any alcohol or drug abuse patient.[facility] HospitalIn the event this information is protected by the Federal Confidentiality of Alcohol and Drug Abuse Patient Records regulations: The Federal rules restrict any use of the information to criminally investigate or prosecute any alcohol or drug abuse patient.[facility] HospitalIn the event this information is protected by the Federal Confidentiality of Alcohol and Drug Abuse Patient Records regulations: The Federal rules restrict any use of the information to criminally investigate or prosecute any alcohol or drug abuse patient.[facility] HospitalIn the event this information is protected by the Federal Confidentiality of Alcohol and Drug Abuse Patient Records regulations: The Federal rules restrict any use of the information to criminally investigate or prosecute any alcohol or drug abuse patient.[facility] HospitalIn the event this information is protected by the Federal Confidentiality of Alcohol and Drug Abuse Patient Records regulations: The Federal rules restrict any use of the information to criminally investigate or prosecute any alcohol or drug abuse patient.[facility] HospitalIn the event this information is protected by the Federal Confidentiality of Alcohol and Drug Abuse Patient Records regulations: The Federal rules restrict any use of the information to criminally investigate or prosecute any alcohol or drug abuse patient.[facility] HospitalIn the event this information is protected by the Federal Confidentiality of Alcohol and Drug Abuse Patient Records regulations: The Federal rules restrict any use of the information to criminally investigate or prosecute any alcohol or drug abuse patient.[facility] HospitalIn the event this information is protected by the Federal Confidentiality of Alcohol and Drug Abuse Patient Records regulations: The Federal rules restrict any use of the information to criminally investigate or prosecute any alcohol or drug abuse patient.[facility] HospitalIn the event this information is protected by the Federal Confidentiality of Alcohol and Drug Abuse Patient Records regulations: The Federal rules restrict any use of the information to criminally investigate or prosecute any alcohol or drug abuse patient.[facility] HospitalIn the event this information is protected by the Federal Confidentiality of Alcohol and Drug Abuse Patient Records regulations: The Federal rules restrict any use of the information to criminally investigate or prosecute any alcohol or drug abuse patient.[facility] HospitalIn the event this information is protected by the Federal Confidentiality of Alcohol and Drug Abuse Patient Records regulations: The Federal rules restrict any use of the information to criminally investigate or prosecute any alcohol or drug abuse patient.[facility] HospitalIn the event this information is protected by the Federal Confidentiality of Alcohol and Drug Abuse Patient Records regulations: The Federal rules restrict any use of the information to criminally investigate or prosecute any alcohol or drug abuse patient.[facility] HospitalIn the event this information is protected by the Federal Confidentiality of Alcohol and Drug Abuse Patient Records regulations: The Federal rules restrict any use of the information to criminally investigate or prosecute any alcohol or drug abuse patient.[facility] HospitalIn the event this information is protected by the Federal Confidentiality of Alcohol and Drug Abuse Patient Records regulations: The Federal rules restrict any use of the information to criminally investigate or prosecute any alcohol or drug abuse patient.[facility] HospitalIn the event this information is protected by the Federal Confidentiality of Alcohol and Drug Abuse Patient Records regulations: The Federal rules restrict any use of the information to criminally investigate or prosecute any alcohol or drug abuse patient.[facility] HospitalIn the event this information is protected by the Federal Confidentiality of Alcohol and Drug Abuse Patient Records regulations: The Federal rules restrict any use of the information to criminally investigate or prosecute any alcohol or drug abuse patient.[facility] HospitalIn the event this information is protected by the Federal Confidentiality of Alcohol and Drug Abuse Patient Records regulations: The Federal rules restrict any use of the information to criminally investigate or prosecute any alcohol or drug abuse patient.[facility] HospitalIn the event this information is protected by the Federal Confidentiality of Alcohol and Drug Abuse Patient Records regulations: The Federal rules restrict any use of the information to criminally investigate or prosecute any alcohol or drug abuse patient.[facility] HospitalIn the event this information is protected by the Federal Confidentiality of Alcohol and Drug Abuse Patient Records regulations: The Federal rules restrict any use of the information to criminally investigate or prosecute any alcohol or drug abuse patient.[facility] HospitalIn the event this information is protected by the Federal Confidentiality of Alcohol and Drug Abuse Patient Records regulations: The Federal rules restrict any use of the information to criminally investigate or prosecute any alcohol or drug abuse patient.[facility] HospitalIn the event this information is protected by the Federal Confidentiality of Alcohol and Drug Abuse Patient Records regulations: The Federal rules restrict any use of the information to criminally investigate or prosecute any alcohol or drug abuse patient.[facility] HospitalIn the event this information is protected by the Federal Confidentiality of Alcohol and Drug Abuse Patient Records regulations: The Federal rules restrict any use of the information to criminally investigate or prosecute any alcohol or drug abuse patient.[facility] HospitalIn the event this information is protected by the Federal Confidentiality of Alcohol and Drug Abuse Patient Records regulations: The Federal rules restrict any use of the information to criminally investigate or prosecute any alcohol or drug abuse patient.[facility] HospitalIn the event this information is protected by the Federal Confidentiality of Alcohol and Drug Abuse Patient Records regulations: The Federal rules restrict any use of the information to criminally investigate or prosecute any alcohol or drug abuse patient.[facility] HospitalIn the event this information is protected by the Federal Confidentiality of Alcohol and Drug Abuse Patient Records regulations: The Federal rules restrict any use of the information to criminally investigate or prosecute any alcohol or drug abuse patient.[facility] HospitalIn the event this information is protected by the Federal Confidentiality of Alcohol and Drug Abuse Patient Records regulations: The Federal rules restrict any use of the information to criminally investigate or prosecute any alcohol or drug abuse patient.[facility] HospitalIn the event this information is protected by the Federal Confidentiality of Alcohol and Drug Abuse Patient Records regulations: The Federal rules restrict any use of the information to criminally investigate or prosecute any alcohol or drug abuse patient.[facility] HospitalIn the event this information is protected by the Federal Confidentiality of Alcohol and Drug Abuse Patient Records regulations: The Federal rules restrict any use of the information to criminally investigate or prosecute any alcohol or drug abuse patient.[facility] HospitalIn the event this information is protected by the Federal Confidentiality of Alcohol and Drug Abuse Patient Records regulations: The Federal rules restrict any use of the information to criminally investigate or prosecute any alcohol or drug abuse patient.[facility] HospitalIn the event this information is protected by the Federal Confidentiality of Alcohol and Drug Abuse Patient Records regulations: The Federal rules restrict any use of the information to criminally investigate or prosecute any alcohol or drug abuse patient.[facility] HospitalIn the event this information is protected by the Federal Confidentiality of Alcohol and Drug Abuse Patient Records regulations: The Federal rules restrict any use of the information to criminally investigate or prosecute any alcohol or drug abuse patient.[facility] HospitalIn the event this information is protected by the Federal Confidentiality of Alcohol and Drug Abuse Patient Records regulations: The Federal rules restrict any use of the information to criminally investigate or prosecute any alcohol or drug abuse patient.[facility] HospitalIn the event this information is protected by the Federal Confidentiality of Alcohol and Drug Abuse Patient Records regulations: The Federal rules restrict any use of the information to criminally investigate or prosecute any alcohol or drug abuse patient.[facility] HospitalIn the event this information is protected by the Federal Confidentiality of Alcohol and Drug Abuse Patient Records regulations: The Federal rules restrict any use of the information to criminally investigate or prosecute any alcohol or drug abuse patient.[facility] HospitalIn the event this information is protected by the Federal Confidentiality of Alcohol and Drug Abuse Patient Records regulations: The Federal rules restrict any use of the information to criminally investigate or prosecute any alcohol or drug abuse patient.[facility] HospitalIn the event this information is protected [...] or prosecute any alcohol or drug abuse patient.[facility] HospitalIn the event this information is protected by the Federal Confidentiality of Alcohol and Drug Abuse Patient Records regulations: The Federal rules restrict any use of the information to criminally investigate or prosecute any alcohol or drug abuse patient.[facility] HospitalIn the event this information is protected by the Federal Confidentiality of Alcohol and Drug Abuse Patient Records regulations: The Federal rules restrict any use of the information to criminally investigate or prosecute any alcohol or drug abuse patient.[facility] HospitalIn the event this information is protected by the Federal Confidentiality of Alcohol and Drug Abuse Patient Records regulations: The Federal rules restrict any use of the information to criminally investigate or prosecute any alcohol or drug abuse patient.[facility] HospitalIn the event this information is protected by the Federal Confidentiality of Alcohol and Drug Abuse Patient Records regulations: The Federal rules restrict any use of the information to criminally investigate or prosecute any alcohol or drug abuse patient.[facility] HospitalIn the event this information is protected by the Federal Confidentiality of Alcohol and Drug Abuse Patient Records regulations: The Federal rules restrict any use of the information to criminally investigate or prosecute any alcohol or drug abuse patient.[facility] HospitalIn the event this information is protected by the Federal Confidentiality of Alcohol and Drug Abuse Patient Records regulations: The Federal rules restrict any use of the information to criminally investigate or prosecute any alcohol or drug abuse patient.[facility] HospitalIn the event this information is protected by the Federal Confidentiality of Alcohol and Drug Abuse Patient Records regulations: The Federal rules restrict any use of the information to criminally investigate or prosecute any alcohol or drug abuse patient.[facility] HospitalIn the event this information is protected by the Federal Confidentiality of Alcohol and Drug Abuse Patient Records regulations: The Federal rules restrict any use of the information to criminally investigate or prosecute any alcohol or drug abuse patient.[facility] HospitalIn the event this information is protected by the Federal Confidentiality of Alcohol and Drug Abuse Patient Records regulations: The Federal rules restrict any use of the information to criminally investigate or prosecute any alcohol or drug abuse patient.[facility] HospitalIn the event this information is protected by the Federal Confidentiality of Alcohol and Drug Abuse Patient Records regulations: The Federal rules restrict any use of the information to criminally investigate or prosecute any alcohol or drug abuse patient.[facility] HospitalIn the event this information is protected by the Federal Confidentiality of Alcohol and Drug Abuse Patient Records regulations: The Federal rules restrict any use of the information to criminally investigate or prosecute any alcohol or drug abuse patient.[facility] HospitalIn the event this information is protected by the Federal Confidentiality of Alcohol and Drug Abuse Patient Records regulations: The Federal rules restrict any use of the information to criminally investigate or prosecute any alcohol or drug abuse patient.[facility] HospitalIn the event this information is protected by the Federal Confidentiality of Alcohol and Drug Abuse Patient Records regulations: The Federal rules restrict any use of the information to criminally investigate or prosecute any alcohol or drug abuse patient.[facility] HospitalIn the event this information is protected by the Federal Confidentiality of Alcohol and Drug Abuse Patient Records regulations: The Federal rules restrict any use of the information to criminally investigate or prosecute any alcohol or drug abuse patient.[facility] HospitalIn the event this information is protected by the Federal Confidentiality of Alcohol and Drug Abuse Patient Records regulations: The Federal rules restrict any use of the information to criminally investigate or prosecute any alcohol or drug abuse patient.[facility] HospitalIn the event this information is protected by the Federal Confidentiality of Alcohol and Drug Abuse Patient Records regulations: The Federal rules restrict any use of the information to criminally investigate or prosecute any alcohol or drug abuse patient.[facility] HospitalIn the event this information is protected by the Federal Confidentiality of Alcohol and Drug Abuse Patient Records regulations: The Federal rules restrict any use of the information to criminally investigate or prosecute any alcohol or drug abuse patient.[facility] HospitalIn the event this information is protected by the Federal Confidentiality of Alcohol and Drug Abuse Patient Records regulations: The Federal rules restrict any use of the information to criminally investigate or prosecute any alcohol or drug abuse patient.[facility] HospitalIn the event this information is protected by the Federal Confidentiality of Alcohol and Drug Abuse Patient Records regulations: The Federal rules restrict any use of the information to criminally investigate or prosecute any alcohol or drug abuse patient.[facility] HospitalIn the event this information is protected by the Federal Confidentiality of Alcohol and Drug Abuse Patient Records regulations: The Federal rules restrict any use of the information to criminally investigate or prosecute any alcohol or drug abuse patient.[facility] HospitalIn the event this information is protected by the Federal Confidentiality of Alcohol and Drug Abuse Patient Records regulations: The Federal rules restrict any use of the information to criminally investigate or prosecute any alcohol or drug abuse patient.[facility] HospitalIn the event this information is protected by the Federal Confidentiality of Alcohol and Drug Abuse Patient Records regulations: The Federal rules restrict any use of the information to criminally investigate or prosecute any alcohol or drug abuse patient.[facility] HospitalIn the event this information is protected by the Federal Confidentiality of Alcohol and Drug Abuse Patient Records regulations: The Federal rules restrict any use of the information to criminally investigate or prosecute any alcohol or drug abuse patient.[facility] HospitalIn the event this information is protected by the Federal Confidentiality of Alcohol and Drug Abuse Patient Records regulations: The Federal rules restrict any use of the information to criminally investigate or prosecute any alcohol or drug abuse patient.[facility] HospitalIn the event this information is protected by the Federal Confidentiality of Alcohol and Drug Abuse Patient Records regulations: The Federal rules restrict any use of the information to criminally investigate or prosecute any alcohol or drug abuse patient.[facility] HospitalIn the event this information is protected by the Federal Confidentiality of Alcohol and Drug Abuse Patient Records regulations: The Federal rules restrict any use of the information to criminally investigate or prosecute any alcohol or drug abuse patient.[facility] HospitalIn the event this information is protected by the Federal Confidentiality of Alcohol and Drug Abuse Patient Records regulations: The Federal rules restrict any use of the information to criminally investigate or prosecute any alcohol or drug abuse patient.[facility] HospitalIn the event this information is protected by the Federal Confidentiality of Alcohol and Drug Abuse Patient Records regulations: The Federal rules restrict any use of the information to criminally investigate or prosecute any alcohol or drug abuse patient.[facility] HospitalIn the event this information is protected by the Federal Confidentiality of Alcohol and Drug Abuse Patient Records regulations: The Federal rules restrict any use of the information to criminally investigate or prosecute any alcohol or drug abuse patient.[facility] HospitalIn the event this information is protected by the Federal Confidentiality of Alcohol and Drug Abuse Patient Records regulations: The Federal rules restrict any use of the information to criminally investigate or prosecute any alcohol or drug abuse patient.[facility] HospitalIn the event this information is protected by the Federal Confidentiality of Alcohol and Drug Abuse Patient Records regulations: The Federal rules restrict any use of the information to criminally investigate or prosecute any alcohol or drug abuse patient.[facility] HospitalIn the event this information is protected by the Federal Confidentiality of Alcohol and Drug Abuse Patient Records regulations: The Federal rules restrict any use of the information to criminally investigate or prosecute any alcohol or drug abuse patient.[facility] HospitalIn the event this information is protected by the Federal Confidentiality of Alcohol and Drug Abuse Patient Records regulations: The Federal rules restrict any use of the information to criminally investigate or prosecute any alcohol or drug abuse patient.[facility] Reason for Visit (unrecogniz ed section [...] CONSULT TO PHYSICAL THERAPY (AG) Belgica Herrera [address] [place] [address] Pt [facility] [address] [place] [address] Reason Comments Patient Update Reason Comments Consult CONSULTS TO ENT AND OPTHALMOLOGY Status Reason Specialty Diagnoses / Procedures Referred By Contact Referred To Contact Authorized [employer] Business Intelligence Developer / PSYCHIATRY Diagnoses Other specified anxiety disorders My Chart Zoom New pt appt. F41.8 Procedures EST PATIENT VISIT LEVEL 1 MYC PSYC/PSYL NEW VIDEO (ZOOM) Belgica Herrera [address] [place] [address] Juancho Benedict (Carbon Sequestration Plant Engineer-S) [address] [facility] [address] [place] [address] Reason Comments Hypertension Nausea Musculoskeletal Problem body aches and p ain Reason Comments Patient Update Neurology referral, no number on file for the patient Reason Comments Appointment CONSULT TO PHYSICAL THERAPY PLACED Reason Comments Results Appointment Patient Update Reason Onset Date Comments Air Hose Coupler Chronic Care 07/22/2021 PCC f/u Reason Onset Date Comments Air Hose Coupler Chronic Care 07/23/2021 Refill Reason Onset Date Comments Air Hose Coupler Chronic Care 08/05/2021 PCC f/u Specialty Diagnoses / Procedures Referred By Contac t Referred To Contact MR IMAGING Diagnoses Malignant neoplasm of rectosigmoid junction (HCC) Procedures MRI PELVIS WO/W IVCON MRI PELVIS W/WO CONTRAST Artem Ahmadi MD [address] [facility] [address] [place] [address] Mr Imaging Referral ID Status Reason Start Date Expiration Date V isits Requested Visits Authorized Closed Auto-Generate d Referral 06/10/2021 01/10/2022 1 1 Reason Comments Follow Up mri results and diab etic Reason Onset Date Comments Air Hose Coupler Chronic Care 09/06/2021 PCC f/u Reason Onset Date Comments Transition Of Care 09/08/2021 ED D/C 09/07/21 Air Hose Coupler - Patient Initiated 11/2021 Received call from pt Reason Onset Date Comments Air Hose Coupler Chronic Care 09/17/2021 PCC f/u Reason Comments Internal Referrals/resources Ophthalmolo gy Reason Comments ER F/U boil on the neck Reason Comments Internal Referrals/resources Nephrology Reason Comments Two Week Follow Up Reason Comments Schedule Surgery Reason Comments Follow Up Phone Call called pt mailbox f ull mailed letter Reason Comments Prostate Problem BPH Reason Onset Date Comments Air Hose Coupler Chronic Care 11/01/2021 PCC f/u Reason Comments Follow Up Reason Comments Schedule Surgery Phaco Right Eye Reason Comments Diabetes Reason Comments Letter Reason Onset Date Comments Air Hose Coupler Chronic Care 12/03/2021 PCC f/u Reason Onset Date Comments Air Hose Coupler Chronic Care 12/28/2021 PCC f/u Reason Comments Hypertension Reason Onset Date Comments Air Hose Coupler Chronic Care 01/07/2022 PCC f/u Reason Comments Appointment Reason Comments Consult Reason Onset Date Comments Psychiatric Problem 01/17/2022 Reason Onset Date Comments Air Hose Coupler Hospital Follow Up 01/01 Hospital admit - [facility] Reason Onset Date Comments Behavioral Problem 01/19/2022 Reason Comments Appointment A-scan reminder Surgery Cancelled Per Patient Reason Onset Date Comments Transition Of Care 01/28/2022 CC Yarsani D /C to SNF 01/27/22 Reason Onset Date Comments Transition Of Care 02/21/2022 SNF status - SNF D/C 02/15/22 Air Hose Coupler Chronic Care 02/21/2022 PCC f/u Reason Comments No Show Reason Comments Hypertension Pt wants to discuss PET scan to see why his body is in so much brooks Reason Onset Date Comments Air Hose Coupler Chronic Care 03/11/2022 PCC f/u Transition Of Care 03/11/2022 TCM f/u Reason Onset Date Comments Transition Of Care 03/17/2022 TCM f/u Air Hose Coupler Chronic Care 03/17/2022 PCC f/u Reason Onset Date Comments Transition Of Care 04/05/2022 AG D/C Reason Comments Ambulatory Social Work Community resourc es Reason Onset Date Comments Air Hose Coupler Chronic Care 04/21/2022 PCC f/u Transition Of Care 04/21/2022 TCM f/u Reason Onset Date Comments Air Hose Coupler Chronic Care 04/26/2022 PCC f/u Transition Of Care 04/26/2022 TCM f/u Reason Comments eyeglass perscription Reason Onset Date Comments Air Hose Coupler Chronic Care 05/11/2022 PCC f/u Reason Comments [...] INJECT HIP LEFT [facility] [address] [place] [address] Referral ID Status Reason Start Date Expiration Date Visits Re quested Visits Authorized [id number] 1 1 Specialty Diagnoses / Procedures Referred By Vadim wiseman Referred To Contact MR IMAGING Diagnoses Pain in hip Chronic left hip pain Procedures MRI ARTHROGRAM HIP LEFT MRI ANY JT LOWER EXTREM W/CONTRAST MATERIAL Binh Lake R, DO [address] [place] [address] Mr Imaging Referral ID Status Reason Start Date Expiration Date V isits Requested Visits Authorized [id number] Closed Auto-Generate d Referral 07/01/2022 07/31/2023 1 1 Reason Comments Established Patient Reason Comments Post-op (Ophthalmology) Right Eye Reason Comments Established Patient mri Follow Up mri Pain mri Reason Comments Hospital Follow Up Vomiting and dehydra kurt Reason Comments Consult Cardio / [place] / Nep hro Reason Onset Date Comments Air Hose Coupler Chronic Care 09/29/2022 PCC f/u Transition Of Care 09/29/2022 TCM f/u Reason Onset Date Comments Transition Of Care 10/03/2022 TCM f/u Air Hose Coupler Chronic Care 10/03/2022 PCC f/u Reason Comments New Reason Onset Date Comments Air Hose Coupler Chronic Care 10/12/2022 PCC f/u Transition Of Care 10/12/2022 TCM f/u Reason Comments New Patient Evaluation Ischemia Reason Comments Patient Question Reason Onset Date Comments Air Hose Coupler Chronic Care 11/01/2022 PCC f/u Transition Of Care 11/01/2022 TCM f/u Reason Comments Results Surgical pathology Reason Comments Benign Prostatic Hypertrophy Nocturia Reason Comments Consult Endocrinology Reason Comments Consult Dermatology Reason Comments Results Abcess on right unde rarm Reason Comments Internal Referrals/resources Neurology Reason Comments Appointment New patient Referral Reason Comments Air Hose Coupler Chronic Care Pt feels sick Reason Onset Date Comments Air Hose Coupler Chronic Care 11/24/2022 PCC f/u Reason Comments Consult Pain Management Reason Comments Medication Follow-up Reason Comments Established Patient Follow Up Pain Reason Onset Date Comments Air Hose Coupler Chronic Care 01/27/2023 PCC f/u Reason Onset Date Comments Air Hose Coupler Chronic Care 05/19/2023 PCC f/u Reason Onset Date Comments Air Hose Coupler Chronic Care 05/23/2023 D/C Care Coordination - Non-CC PCP Reason Comments Consult New Patient Specialty Diagnoses / Procedures Referred By Contac t Referred To Contact Endocrinology Diagnoses Diabetes mellitus due to underlying condition, uncontrolled, with hyperglycemia (HCC) H/O medication noncompliance Procedures CONSULT TO ENDOCRINOLOGY OFFICE/OUTPATIENT NEW HIGH MDM 60-74 MINUTES Belgica Vega DO [address] [address] Referral ID Status Reason Start Date Expiration Date V isits Requested Visits Authorized [id number] Closed PCP Requested Referral 11/04/2022 11/04/2023 1 1 Reason Comments CKD Follow Up Reason Comments Home Care MD to follow Reason Comments Home Care Confirmation Call Reason Comments Home Care Specialty Diagnoses / Procedures Referred By Contac t Referred To Contact HOME CARE SERVICES IND Home Care [address] [place] [address] Referral ID Status Reason Start Date Expiration Date Visits Re quested Visits Authorized [id number] 1 1 Reason Comments Home Care Scheduling [...] Pt presents to ED via EMS from [facility] for responding slowly and indicates he is cold. Specialty Diagnoses / Procedures Referred By Vadim wiseman Referred To Contact Diagnoses Chills Procedures r68.83 Flori Hills MD [address] [place] [address] Phone: tel: fax: [facility] ED [address] [place] [address] Phone: tel: fax: Referral ID Status Reason Start Date Expiration Date Visits Re quested Visits Authorized [id number] 1 1 Telephone Encounter - Bunny Giraldo) - 02/17/2020 9:28 AM ESTTelephone Encounter - Belgica Herrera - 02/17/2020 5:55 PM ESTTelephone Encounter - Samia Thomason) - 02/18/2020 2:25 PM EST Miscellaneous Notes (unrecog nized section and content) CONSULT TO ORTHOPAEDIC SURGERY PLACED. CONF. # [id number] Bunny Giraldo LPN 02/17/2020 9:29 AM documented [...] the past was ordered for patient to pick up worker from pharmacy. Glucose was 322. Please have [...] this encounter Consult to behavioral health, # [id number] documented in this encounter Consult to behavioral health, # [id number] documented in this encounter Please notify patient received form from [employer] indicating that they will only provide [...] TO OPHTHALMOLOGY PLACED IN PORTAL CONF # [id number] CONSULT TO ENT PLACED IN PORTAL CONF # [id number] Bunny Giraldo LPN 02/21/2020 11:36 AM documented in this encounter Please send letter to patient regarding the above Thank you, Belgica Herrera D.O. The department of Neurology called into the office stating that they have tried reaching out to the patient at the telephone number listed in the patients chart [phone] and when called she reached a lady who stated that the number was incorrect and she has tried telling people from [facility] this several times. Neurology has no way in contacting the patient regarding scheduling a appointment due to no number on file. Eden Aragon CMA documented in this encounter CONSULT TO PHYSICAL THERAPY PLACED. CONF. # [id number] Bunny Giraldo LPN 02/17/2020 9:48 AM documented [...] section and content) DATE CREATED AUTHOR 01/28/2021 [facility] DATE CREATED AUTHOR AUTHOR'S ORGANIZ ATION 02/28/2022 [facility] DATE CREATED AUTHOR AUTHOR'S ORGANIZ ATION 05/17/2024 [facility] DATE CREATED AUTHOR AUTHOR'S ORGANIZ ATION 07/25/2024 [facility] DATE CREATED AUTHOR AUTHOR'S ORGANIZ ATION 12/09/2024 [facility] DATE CREATED AUTHOR AUTHOR'S ORGANIZ ATION 02/05/2025 [facility] DATE CREATED AUTHOR AUTHOR'S ORGANIZ ATION 02/11/2025 [facility] Care Teams (unrecognized sec tion and content) Spiral Gear Generator Relationship Specialty Start Date End Date Belgica Vega DO [address] [place] [address] PCP - General Family Practice 02/26/21 Belgica Vega DO [address] [place] [address] Family Practice 02/26/21 Jen Bergman, surfboard makerAir Hose Coupler 09/23/20 Spiral Gear Generator Relationship Specialty Start Date End Date Belgica Vega DO [address] [place] [address] PCP - General Family Practice 02/26/21 Belgica Vega DO [address] [place] [address] Family Practice 02/26/21 Jen Bergman, surfboard makerAir Hose Coupler 09/23/20 Spiral Gear Generator Relationship Specialty Start Date End Date Belgica Vega DO [address] [place] [address] PCP - General Family Practice 02/26/21 Belgica Vega DO [address] [place] [address] Family Practice 02/26/21 Jen Bergman, surfboard makerAir Hose Coupler 09/23/20 Spiral Gear Generator Relationship Specialty Start Date End Date Belgica Vega DO [address] [place] [address] PCP - General Family Practice 02/26/21 Belgica Vega DO [address] [place] [address] Family Practice 02/26/21 Jen Bergman, surfboard makerAir Hose Coupler 09/23/20 Spiral Gear Generator Relationship Specialty Start Date End Date Belgica Vega, DO [address] [place] [address] PCP - General [facility] Practice 02/26/21 Belgica Vega, DO [address] [place] [address] Family Practice 02/26/21 Jen Bergman, surfboard makerAir Hose Coupler 09/23/20 Spiral Gear Generator Relationship Specialty Start Date End Date Belgica Vega, DO [address] [place] [address] PCP - General [facility] Practice 02/26/21 Belgica Vega, DO [address] [place] [address] Family Practice 02/26/21 Jen Bergman, surfboard makerAir Hose Coupler 09/23/20 Spiral Gear Generator Relationship Specialty Start Date End Date Belgica Vega, DO [address] [place] [address] PCP - General [facility] Practice 02/26/21 Belgica Vega, DO [address] [place] [address] Family Practice 02/26/21 Jen Bergman, surfboard makerAir Hose Coupler 09/23/20 Spiral Gear Generator Relationship Specialty Start Date End Date Belgica Vega, DO [address] [place] [address] PCP - General [facility] Practice 02/26/21 Belgica Vega, DO [address] [place] [address] [facility] Practice 02/26/21 Jen Bergman, surfboard makerAir Hose Coupler 09/23/20 Spiral Gear Generator Relationship Specialty Start Date End Date Belgica Vega, DO [address] [place] [address] PCP - General Family Practice 02/26/21 Belgica Vega, DO [address] [place] [address] Family Practice 02/26/21 Jen Bergman, surfboard makerAir Hose Coupler 09/23/20 Spiral Gear Generator Relationship Specialty Start Date End Date Belgica Vega, DO [address] [place] [address] PCP - General Family Practice 02/26/21 Belgica Vega, DO [address] [place] [address] Family Practice 02/26/21 Jen Bergman, surfboard makerAir Hose Coupler 09/23/20 Spiral Gear Generator Relationship Specialty Start Date End Date Belgica Vega, DO [address] [place] [address] PCP - General Family Practice 02/26/21 Belgica Vega, DO [address] [place] [address] Family Practice 02/26/21 Jen Bergman, surfboard makerAir Hose Coupler 09/23/20 Spiral Gear Generator Relationship Specialty Start Date End Date Belgica Vega, DO [address] [place] [address] PCP - General Family Practice 02/26/21 Belgica Vega, DO [address] [place] [address] Family Practice 02/26/21 Jen Bergman, surfboard makerAir Hose Coupler 09/23/20 Spiral Gear Generator Relationship Specialty Start Date End Date Belgica Vega, DO [address] [place] [address] PCP - General Family Practice 02/26/21 Belgica Vega, DO [address] [place] [address] Family Practice 02/26/21 Jen Bergman, surfboard makerAir Hose Coupler 09/23/20 Spiral Gear Generator Relationship Specialty Start Date End Date Belgica Vega, DO [address] [place] [address] PCP - General Family Practice 02/26/21 Belgica Vega, DO [address] [address] [place] [address] Family Practice 02/26/21 Jen Bergman, surfboard makerAir Hose Coupler 09/23/20 Spiral Gear Generator Relationship Specialty Start Date End Date Belgica Vega, DO [address] [place] [address] PCP - General Family Practice 02/26/21 Belgica Vega, DO [address] [place] [address] Family Practice 02/26/21 Jen Bergman, surfboard makerAir Hose Coupler 09/23/20 Belgica Vega, DO [address] [place] [address] Referring Family Practice 10/08/21 Spiral Gear Generator Relationship Specialty Start Date End Date Belgica Vega DO [address] [place] [address] PCP - General Family Practice 02/26/21 Belgica Vega DO [address] [place] [address] Family Practice 02/26/21 Jen Bergman, surfboard makerAir Hose Coupler 09/23/20 Belgica Vega, DO [address] [place] [address] Referring Family Practice 10/08/21 Spiral Gear Generator Relationship Specialty Start Date End Date Belgica Vega, DO [address] [place] [address] PCP - General Family Practice 02/26/21 Belgica Vega, DO [address] [place] [address] [facility] Practice 02/26/21 Jen Bergman, surfboard makerAir Hose Coupler 09/23/20 Belgica Vega, DO [address] [place] [address] Referring Family Practice 10/08/21 Spiral Gear Generator Relationship Specialty Start Date End Date Belgica Vega, DO [address] [place] [address] PCP - General Family Practice 02/26/21 Belgica Vega, DO [address] [place] [address] Family Practice 02/26/21 Jen Bergman, surfboard makerAir Hose Coupler 09/23/20 Belgica Vega, DO [address] [place] [address] Referring Family Practice 10/08/21 Spiral Gear Generator Relationship Specialty Start Date End Date Belgica Vega, DO [address] [place] [address] PCP - General Family Practice 02/26/21 Belgica Vega, DO [address] [place] [address] Family Practice 02/26/21 Jen Bergman, surfboard makerAir Hose Coupler 09/23/20 Belgica Vega, DO [address] [place] [address] Referring Family Practice 10/08/21 Spiral Gear Generator Relationship Specialty Start Date End Date Belgica Vega, DO [address] [place] [address] PCP - General Family Practice 02/26/21 Belgica Vega, DO [address] [place] [address] Family Practice 02/26/21 Jen Bergman, surfboard makerAir Hose Coupler 09/23/20 Belgica Vega, DO [address] [place] [address] Referring Family Practice 10/08/21 Spiral Gear Generator Relationship Specialty Start Date End Date Belgica Vega, DO [address] [place] [address] PCP - General Family Practice 02/26/21 Belgica Vega, DO [address] [place] [address] Family Practice 02/26/21 Jen Bergman, surfboard makerAir Hose Coupler 09/23/20 Belgica Vega, DO [address] [place] [address] Referring Family Practice 10/08/21 Spiral Gear Generator Relationship Specialty Start Date End Date Belgica Veag DO PCP - General Family Practice 02/26/21 Belgica Vega, DO Family Practice 02/26/21 Jen Bergman, surfboard makerAir Hose Coupler 09/23/20 Belgica Vega, DO Referring Family Practice 10/08/21 Spiral Gear Generator Relationship Specialty Start Date End Date Belgica Vega, DO PCP - General Family Medicine 02/26/21 Belgica Vega, DO Family Medicine 02/26/21 Jen Bergman, surfboard makerAir Hose Coupler 09/23/20 Belgica Vega, DO Referring Family Medicine 10/08/21 Spiral Gear Generator Relationship Specialty Start Date End Date Belgica Vega DO PCP - General Family Medicine 02/26/21 Belgica Vega DO Family Medicine 02/26/21 Jen Bergman, surfboard makerAir Hose Coupler 09/23/20 Belgica Vega, DO Referring Family Medicine 10/08/21 Spiral Gear Generator Relationship Specialty Start Date End Date Belgica Vega DO PCP - General Family Medicine 02/26/21 Belgica Vega, DO Family Medicine 02/26/21 Jen Bergman, surfboard makerAir Hose Coupler 09/23/20 Belgica Vega, DO Referring Family Medicine 10/08/21 Spiral Gear Generator Relationship Specialty Start Date End Date Belgica Vega, DO PCP - General Family Medicine 02/26/21 Belgica Vega, DO Family Medicine 02/26/21 Jen Bergman, surfboard makerAir Hose Coupler 09/23/20 Belgica Vega, DO Referring Family Medicine 10/08/21 Spiral Gear Generator Relationship Specialty Start Date End Date Belgica Vega, DO PCP - General Family Medicine 02/26/21 Belgica Vega, DO Family Medicine 02/26/21 Jen Bergman, surfboard makerAir Hose Coupler 09/23/20 Belgica Vega, DO Referring Family Medicine 10/08/21 Spiral Gear Generator Relationship Specialty Start Date End Date Belgica Vega, DO PCP - General Family Medicine 02/26/21 Belgica Vega, DO Family Medicine 02/26/21 Jen Bergman, surfboard makerAir Hose Coupler 09/23/20 Belgica Vega, DO Referring Family Medicine 10/08/21 Spiral Gear Generator Relationship Specialty Start Date End Date Belgica Vega, DO PCP - General Family Medicine 02/26/21 Belgica Vega, DO Family Medicine 02/26/21 Jen Bergman, surfboard makerAir Hose Coupler 09/23/20 Belgica Vega, DO Referring Family Medicine 10/08/21 Spiral Gear Generator Relationship Specialty Start Date End Date Belgica Vega, DO PCP - General Family Medicine 02/26/21 Belgica Vega, DO Family Medicine 02/26/21 Jen Bergman, surfboard makerAir Hose Coupler 09/23/20 Belgica Vega, DO Referring Family Medicine 10/08/21 Spiral Gear Generator Relationship Specialty Start Date End Date Belgica Vega DO PCP - General Family Medicine 02/26/21 Belgica Vega DO Family Medicine 02/26/21 Jen Bergman, surfboard makerAir Hose Coupler 09/23/20 Belgica Vega DO Referring Family Medicine 10/08/21 Spiral Gear Generator Relationship Specialty Start Date End Date Belgica Vega DO PCP - General Family Medicine 02/26/21 Belgica Vega DO Family Medicine 02/26/21 Jen Bergman, surfboard makerAir Hose Coupler 09/23/20 Belgica Vega, DO Referring Family Medicine 10/08/21 Spiral Gear Generator Relationship Specialty Start Date End Date Belgica Vega DO PCP - General Family Medicine 02/26/21 Belgica Vega, DO Family Medicine 02/26/21 Jen Bergman, surfboard makerAir Hose Coupler 09/23/20 Belgica Vega, DO Referring Family Medicine 10/08/21 Spiral Gear Generator Relationship Specialty Start Date End Date Belgica Vega, DO PCP - General Family Medicine 02/26/21 Belgica Vega, DO Family Medicine 02/26/21 Jen Bergman, surfboard makerAir Hose Coupler 09/23/20 Belgica Vega, DO Referring Family Medicine 10/08/21 Spiral Gear Generator Relationship Specialty Start Date End Date Belgica Vega, DO PCP - General Family Medicine 02/26/21 Belgica Vega, DO Family Medicine 02/26/21 Jen Bergman, surfboard makerAir Hose Coupler 09/23/20 Belgica Vega, DO Referring Family Medicine 10/08/21 Spiral Gear Generator Relationship Specialty Start Date End Date Belgica Vega, DO PCP - General Family Medicine 02/26/21 Belgica Vega, DO Family Medicine 02/26/21 Jen Bergman, surfboard makerAir Hose Coupler 09/23/20 Belgica Vega, DO Referring Family Medicine 10/08/21 Spiral Gear Generator Relationship Specialty Start Date End Date Belgica Vega, DO PCP - General Family Medicine 02/26/21 Belgica Vega, DO Family Medicine 02/26/21 Jen Bergman, surfboard makerAir Hose Coupler 09/23/20 Belgica Vega, DO Referring Family Medicine 10/08/21 Spiral Gear Generator Relationship Specialty Start Date End Date Belgica Vega DO PCP - General Family Medicine 02/26/21 Belgica Vega, DO Family Medicine 02/26/21 Jen Bergman, surfboard makerAir Hose Coupler 09/23/20 Belgica Vega DO Referring Family Medicine 10/08/21 Spiral Gear Generator Relationship Specialty Start Date End Date Belgica Vega DO PCP - General Family Medicine 02/26/21 Belgica Vega DO Family Medicine 02/26/21 Jen Bergman, surfboard makerAir Hose Coupler 09/23/20 Belgica Vega DO Referring Family Medicine 10/08/21 Spiral Gear Generator Relationship Specialty Start Date End Date Belgica Vega DO PCP - General Family Medicine 02/26/21 Belgica Vega DO Family Medicine 02/26/21 Jen Bergman, surfboard makerAir Hose Coupler 09/23/20 Belgica Vega DO Referring Family Medicine 10/08/21 Spiral Gear Generator Relationship Specialty Start Date End Date Belgica Vega, DO PCP - General Family Medicine 02/26/21 Belgica Vega, DO Family Medicine 02/26/21 Jen Bergman, surfboard makerAir Hose Coupler 09/23/20 Belgica Vega, DO Referring Family Medicine 10/08/21 Spiral Gear Generator Relationship Specialty Start Date End Date Belgica Vega DO PCP - General Family Medicine 02/26/21 Belgica Vega, DO Family Medicine 02/26/21 Jen Bergman, surfboard makerAir Hose Coupler 09/23/20 Belgica Vega, DO Referring Family Medicine 10/08/21 Spiral Gear Generator Relationship Specialty Start Date End Date Belgica Vega DO PCP - General Family Medicine 02/26/21 Belgica Vega, DO Family Medicine 02/26/21 Jen Bergman, surfboard makerAir Hose Coupler 09/23/20 Belgica Vega, DO Referring Family Medicine 10/08/21 Spiral Gear Generator Relationship Specialty Start Date End Date Belgica Vega, DO PCP - General Family Medicine 02/26/21 Belgica Vega, DO Family Medicine 02/26/21 Jen Bergman, surfboard makerAir Hose Coupler 09/23/20 Belgica Vega, DO Referring Family Medicine 10/08/21 Spiral Gear Generator Relationship Specialty Start Date End Date Belgica Vega, DO PCP - General Family Medicine 02/26/21 Belgica Vega, DO Family Medicine 02/26/21 Jen Bergman, surfboard makerAir Hose Coupler 09/23/20 Belgica Vega, DO Referring Family Medicine 10/08/21 Spiral Gear Generator Relationship Specialty Start Date End Date Belgica Vega DO PCP - General Family Medicine 02/26/21 Belgica Vega, DO Family Medicine 02/26/21 Jen Bergman, surfboard makerAir Hose Coupler 09/23/20 Belgica Vega, DO Referring Family Medicine 10/08/21 Spiral Gear Generator Relationship Specialty Start Date End Date Belgica Vega DO PCP - General Family Medicine 02/26/21 Belgica Vega, DO Family Medicine 02/26/21 Jen Bergman, surfboard makerAir Hose Coupler 09/23/20 Belgica Vega, DO Referring Family Medicine 10/08/21 Spiral Gear Generator Relationship Specialty Start Date End Date Belgica Vega DO PCP - General Family Medicine 02/26/21 Belgica Vega, DO Family Medicine 02/26/21 Jen Bergman, surfboard makerAir Hose Coupler 09/23/20 Belgica Vega, DO Referring Family Medicine 10/08/21 Spiral Gear Generator Relationship Specialty Start Date End Date Belgica Vega DO PCP - General Family Medicine 02/26/21 Belgica Vega, DO Family Medicine 02/26/21 Jen Bergman, surfboard makerAir Hose Coupler 09/23/20 Belgica Vega, DO Referring Family Medicine 10/08/21 Spiral Gear Generator Relationship Specialty Start Date End Date Belgica Vega DO PCP - General Family Medicine 02/26/21 Belgica Vega, DO Family Medicine 02/26/21 Jen Bergman, surfboard makerAir Hose Coupler 09/23/20 Belgica Vega DO Referring Family Medicine 10/08/21 Spiral Gear Generator Relationship Specialty Start Date End Date Belgica Vega DO PCP - General Family Medicine 02/26/21 Belgica Vega, DO Family Medicine 02/26/21 Jen Bergman, surfboard makerAir Hose Coupler 09/23/20 Belgica Vega, DO Referring Family Medicine 10/08/21 Spiral Gear Generator Relationship Specialty Start Date End Date Belgica Vega, DO PCP - General Family Medicine 02/26/21 Belgica Vega, DO Family Medicine 02/26/21 Jen Bergman, surfboard makerAir Hose Coupler 09/23/20 Belgica Vega, DO Referring Family Medicine 10/08/21 Spiral Gear Generator Relationship Specialty Start Date End Date Belgica Vega, DO PCP - General Family Medicine 02/26/21 Belgica Vega, DO Family Medicine 02/26/21 Jen Bergman, surfboard makerAir Hose Coupler 09/23/20 Belgica Vega, DO Referring Family Medicine 10/08/21 Spiral Gear Generator Relationship Specialty Start Date End Date Belgica Vega DO PCP - General Family Medicine 02/26/21 Belgica Vega, DO Family Medicine 02/26/21 Jen Bergman, surfboard makerAir Hose Coupler 09/23/20 Belgica Vega, DO Referring Family Medicine 10/08/21 Spiral Gear Generator Relationship Specialty Start Date End Date Belgica Vega, DO PCP - General Family Medicine 02/26/21 Belgica Vega, DO Family Medicine 02/26/21 Jen Bergman, surfboard makerAir Hose Coupler 09/23/20 Belgica Vega, DO Referring Family Medicine 10/08/21 Spiral Gear Generator Relationship Specialty Start Date End Date Belgica Vega, DO PCP - General Family Medicine 02/26/21 Belgica Vega, DO [address] [place] [address] Family Medicine 02/26/21 Jen Bergman, surfboard makerAir Hose Coupler 09/23/20 Belgica Vega, DO Referring Family Medicine 10/08/21 Spiral Gear Generator Relationship Specialty Start Date End Date Belgica Vega DO PCP - General Family Medicine 02/26/21 Belgica Vega, DO [address] [place] [address] Family Medicine 02/26/21 Jen Bergman, surfboard makerAir Hose Coupler 09/23/20 Belgica Vega, DO Referring Family Medicine 10/08/21 Spiral Gear Generator Relationship Specialty Start Date End Date Belgica Vega DO PCP - General Family Medicine 02/26/21 Belgica Vega, DO [address] [place] [address] Family Medicine 02/26/21 Jen Bergman, surfboard makerAir Hose Coupler 09/23/20 Belgica Vega, DO Referring Family Medicine 10/08/21 Beglica Vega, DO [address] [place] [address] Referring Family Medicine 10/03/22 Spiral Gear Generator Relationship Specialty Start Date End Date Belgica Vega DO PCP - General Family Medicine 02/26/21 Belgica Vega DO [address] [place] [address] Family Medicine 02/26/21 Jen Bergman, surfboard makerAir Hose Coupler 09/23/20 Belgica Vega DO Referring Family Medicine 10/08/21 Belgica Vega DO [address] [place] [address] Referring Family Medicine 10/03/22 Spiral Gear Generator Relationship Specialty Start Date End Date Belgica Vega DO PCP - General Family Medicine 02/26/21 Belgica Vega DO [address] [place] [address] Family Medicine 02/26/21 Jen Bergman, surfboard makerAir Hose Coupler 09/23/20 Belgica Vega DO Referring Family Medicine 10/08/21 Belgica Vega DO [address] [place] [address] Referring Family Medicine 10/03/22 Spiral Gear Generator Relationship Specialty Start Date End Date Belgica Vega DO PCP - General Family Medicine 02/26/21 Belgica Vega DO [address] [place] [address] Family Medicine 02/26/21 Jen Bergman, surfboard makerAir Hose Coupler 09/23/20 Belgica Vega DO Referring Family Medicine 10/08/21 Belgica Vega DO [address] [place] [address] Referring Family Medicine 10/03/22 Spiral Gear Generator Relationship Specialty Start Date End Date Belgica Vega DO PCP - General Family Medicine 02/26/21 Belgica Vega DO [address] [place] [address] Family Medicine 02/26/21 Jen Bergman, surfboard makerAir Hose Coupler 09/23/20 Belgica Vega DO Referring Family Medicine 10/08/21 Belgica Vega DO [address] [place] [address] Referring Family Medicine 10/03/22 Spiral Gear Generator Relationship Specialty Start Date End Date Belgica Vega DO PCP - General Family Medicine 02/26/21 Belgica Vega DO [address] [place] [address] Family Medicine 02/26/21 Jen Bergman, surfboard makerAir Hose Coupler 09/23/20 Belgica Vega DO Referring Family Medicine 10/08/21 Belgica Vega DO [address] [place], [place] [address] [phone] Referring Family Medicine 10/03/22 Spiral Gear Generator Relationship Specialty Start Date End Date Belgica Vega DO PCP - General Family Medicine 02/26/21 Belgica Vega DO [address] [place] [address] Family Medicine 02/26/21 Jen Bergman, surfboard makerAir Hose Coupler 09/23/20 Belgica Vega DO Referring Family Medicine 10/08/21 Belgica Vega DO [address] [place] [address] Referring Family Medicine 10/03/22 Spiral Gear Generator Relationship Specialty Start Date End Date Belgica Vega DO PCP - General Family Medicine 02/26/21 Belgica Vega DO [address] [place] [address] Family Medicine 02/26/21 Jen Bergman, surfboard makerAir Hose Coupler 09/23/20 Belgica Vega DO Referring Family Medicine 10/08/21 Belgica Vega DO [address] [place] [address] Referring Family Medicine 10/03/22 Spiral Gear Generator Relationship Specialty Start Date End Date Belgica Vega DO PCP - General Family Medicine 02/26/21 Belgica Vega DO [address] [place] [address] Family Medicine 02/26/21 Jen Bergman, surfboard makerAir Hose Coupler 09/23/20 Belgica Vega DO Referring Family Medicine 10/08/21 Belgica Vega DO [address] [place] [address] Referring Family Medicine 10/03/22 Spiral Gear Generator Relationship Specialty Start Date End Date Belgica Vega DO PCP - General Family Medicine 02/26/21 Belgica Vega DO [address] [place] [address] Family Medicine 02/26/21 Jen Bergman, surfboard makerAir Hose Coupler 09/23/20 Belgica Vega DO Referring Family Medicine 10/08/21 Belgica Vega DO [address] [place], [place] [address] Referring Family Medicine 10/03/22 Spiral Gear Generator Relationship Specialty Start Date End Date Belgica Vega DO PCP - General Family Medicine 02/26/21 Belgica Vega DO [address] [place], [place] [address] [phone] Family Medicine 02/26/21 Jen Bergman, surfboard makerAir Hose Coupler 09/23/20 Belgica Vega DO Referring Family Medicine 10/08/21 Belgica Vega DO [address] [place], [place] [address] [phone] Referring Family Medicine 10/03/22 Spiral Gear Generator Relationship Specialty Start Date End Date Belgica Vega DO PCP - General Family Medicine 02/26/21 Belgica Vega DO [address] [place], [place] [address] [phone] Family Medicine 02/26/21 Jen Bergman, surfboard makerAir Hose Coupler 09/23/20 Belgica Vega DO Referring Family Medicine 10/08/21 Belgica Vega DO [address] [place] [address] Referring Family Medicine 10/03/22 Spiral Gear Generator Relationship Specialty Start Date End Date Belgica Vega DO PCP - General Family Medicine 02/26/21 Belgica Vega DO [address] [place] [address] Family Medicine 02/26/21 Jen Bergman, surfboard makerAir Hose Coupler 09/23/20 Belgica Vega DO Referring Family Medicine 10/08/21 Belgica Vega DO [address] [place] [address] Referring Family Medicine 10/03/22 Spiral Gear Generator Relationship Specialty Start Date End Date Belgica Vega DO PCP - General Family Medicine 02/26/21 Belgica Vega DO [address] [place] [address] Family Medicine 02/26/21 Jen Bergman, surfboard makerAir Hose Coupler 09/23/20 Belgica Vega DO Referring Family Medicine 10/08/21 Belgica Vega DO [address] [place] [address] Referring Family Medicine 10/03/22 Spiral Gear Generator Relationship Specialty Start Date End Date Belgica Vega DO PCP - General Family Medicine 02/26/21 Belgica Vega DO [address] [place], [place] [address] [phone] Family Medicine 02/26/21 Jen Bergman, surfboard makerAir Hose Coupler 09/23/20 Belgica Vega DO Referring Family Medicine 10/08/21 Belgica Vega DO [address] [place], [place] [address] [phone] Referring Family Medicine 10/03/22 Spiral Gear Generator Relationship Specialty Start Date End Date Belgica Vega DO PCP - General Family Medicine 02/26/21 Belgica Vega DO [address] [place], [place] [address] [phone] Family Medicine 02/26/21 Jen Bergman, surfboard makerAir Hose Coupler 09/23/20 Belgica Vega DO Referring Family Medicine 10/08/21 Belgica Vega DO [address] [place] [address] Referring Family Medicine 10/03/22 Spiral Gear Generator Relationship Specialty Start Date End Date Belgica Vega DO PCP - General Family Medicine 02/20/20 02/25/21 Spiral Gear Generator Relationship Specialty Start Date End Date Bunny Scott MD [place] [address] PCP - General Internal Medicine 03/16/23 Belgica Vega DO [address] [facility] [address] [place] [address] Family Medicine 02/26/21 05/23/23 Jen Bergman, surfboard makerAir Hose Coupler 09/23/20 Belgica Vega DO Referring Family Medicine 10/08/21 05/23/23 Belgica Vega DO [address] [address] Referring Family Medicine 10/03/22 05/23/23 Spiral Gear Generator Relationship Specialty Start Date End Date Bunny Scott MD [address] [place] [address] PCP - General Internal Medicine 03/16/23 Belgica Vega DO [address] [address] Family Medicine 02/26/21 05/23/23 Jen Bergman, surfboard makerAir Hose Coupler 09/23/20 Belgica Vega DO Referring Family Medicine 10/08/21 05/23/23 Belgica Vega DO [address] [address] Referring Family Medicine 10/03/22 05/23/23 Spiral Gear Generator Relationship Specialty Start Date End Date Bunny Scott MD [address] [place] [address] PCP - General Internal Medicine 03/16/23 Spiral Gear Generator Relationship Specialty Start Date End Date Bunny Scott MD [address] [place] [address] PCP - General Internal Medicine 03/16/23 Spiral Gear Generator Relationship Specialty Start Date End Date Bunny Scott MD [address] [place] [address] PCP - General Internal Medicine 03/16/23 Spiral Gear Generator Relationship Specialty Start Date End Date Bunny Scott MD [address] [place] [address] PCP - General Internal Medicine 03/16/23 Spiral Gear Generator Relationship Specialty Start Date End Date Bunny Scott MD [address] [place] [address] PCP - General Internal Medicine 03/16/23 Spiral Gear Generator Relationship Specialty Start Date End Date Bunny Scott MD [address] [place] [address] PCP - General Internal Medicine 03/16/23 Bunny Scott MD [address] [place] [address] Home Care Provider Internal Medicine 10/12/23 Spiral Gear Generator Relationship Specialty Start Date End Date Bunny Scott MD [address] [place] [address] PCP - General Internal Medicine 03/16/23 Bunny Scott MD [address] [place] [address] Home Care Provider Internal Medicine 10/12/23 Spiral Gear Generator Relationship Specialty Start Date End Date Bunny Scott MD [address] [place] [address] PCP - General Internal Medicine 03/16/23 Bunny Scott MD [address] [place] [address] Home Care Provider Internal Medicine 10/12/23 Simeon Hinds RN [address] [place], [place] [id number] Business Administration Program Chair Post Acute Care 10/20/23 Spiral Gear Generator Relationship Specialty Start Date End Date Bunny Scott MD [address] [place] [address] PCP - General Internal Medicine 03/16/23 Bunny Scott MD [address] [place] [address] Home Care Provider Internal Medicine 10/12/23 Simeon Hinds RN [address] [place] [address] Business Administration Program Chair Post Acute Care 10/20/23 Spiral Gear Generator Relationship Specialty Start Date End Date Bunny Scott MD [address] [place] [address] PCP - General Internal Medicine 03/16/23 Bunny Scott MD [address] [place] [address] Home Care Provider Internal Medicine 10/12/23 Simeon Hinds RN [address] [place] [address] Business Administration Program Chair Post Acute Care 10/20/23 Spiral Gear Generator Relationship Specialty Start Date End Date Bunny Scott MD [address] [place] [address] PCP - General Internal Medicine 03/16/23 Bunny Scott MD [address] [place] [address] Home Care Provider Internal Medicine 10/12/23 Simeon Hinds RN [address] [place] [address] Business Administration Program Chair Post Acute Care 10/20/23 Spiral Gear Generator Relationship Specialty Start Date End Date Bunny Scott MD [address] [place] [address] PCP - General Internal Medicine 03/16/23 Bunny Scott MD [address] [place] [address] Home Care Provider Internal Medicine 10/12/23 Simeon Hinds RN [address] [place] [address] Business Administration Program Chair Post Acute Care 10/20/23 Spiral Gear Generator Relationship Specialty Start Date End Date Bunny Scott MD [address] [place] [address] PCP - General Internal Medicine 03/16/23 Bunny Scott MD [address] [place] [address] Home Care Provider Internal Medicine 10/12/23 Simeon Hinds RN [address] [place] [address] Business Administration Program Chair Post Acute Care 10/20/23 Spiral Gear Generator Relationship Specialty Start Date End Date Bunny Scott MD [address] [place] [address] PCP - General Internal Medicine 03/16/23 Bunny Scott MD [address] [place] [address] Home Care Provider Internal Medicine 10/12/23 Simeon Hinds RN [address] [place] [address] Business Administration Program Chair Post Acute Care 10/20/23 Spiral Gear Generator Relationship Specialty Start Date End Date Bunny Scott MD [address] [place] [address] PCP - General Internal Medicine 03/16/23 Bunny Scott MD [address] [place] [id number] Home Care Provider Internal Medicine 10/12/23 Simeon Hinds RN [address] [place] [address] Business Administration Program Chair Post Acute Care 10/20/23 Spiral Gear Generator Relationship Specialty Start Date End Date Bunny Scott MD [address] [place] [address] PCP - General Internal Medicine 03/16/23 Bunny Scott MD [address] [place] [address] Home Care Provider Internal Medicine 10/12/23 Simeon Hinds RN [address] [place] [address] Business Administration Program Chair Post Acute Care 10/20/23 Spiral Gear Generator Relationship Specialty Start Date End Date Bunny Scott MD [address] [place] [address] PCP - General Internal Medicine 03/16/23 Bunny Scott MD [address] [place] [address] Home Care Provider Internal Medicine 10/12/23 Simeon Hinds RN [address] [place] [address] Business Administration Program Chair Post Acute Care 10/20/23 Spiral Gear Generator Relationship Specialty Start Date End Date Bunny Scott MD [address] [place] [address] PCP - General Internal Medicine 03/16/23 Bunny Scott MD [address] [place] [address] Home Care Provider Internal Medicine 10/12/23 Simeon Hinds RN [address] [place] [address] Business Administration Program Chair Post Acute Care 10/20/23 Spiral Gear Generator Relationship Specialty Start Date End Date Bunny Scott MD [address] [place] [address] PCP - General Internal Medicine 03/16/23 Bunny Scott MD [address] [place] [address] Home Care Provider Internal Medicine 10/12/23 Simeon Hinds RN [address] [place] [address] Business Administration Program Chair Post Acute Care 10/20/23 Spiral Gear Generator Relationship Specialty Start Date End Date Bunny Scott MD [address] [place] [address] PCP - General Internal Medicine 03/16/23 Bunny Scott MD [address] [place] [address] Home Care Provider Internal Medicine 10/12/23 Simeon Hinds RN [address] [place] [address] Business Administration Program Chair Post Acute Care 10/20/23 Spiral Gear Generator Relationship Specialty Start Date End Date Bunny Scott MD [address] [place] [address] PCP - General Internal Medicine 03/16/23 Bunny Scott MD [address] [place] [address] Home Care Provider Internal Medicine 10/12/23 Simeon Hinds RN [address] [place] [address] Business Administration Program Chair Post Acute Care 10/20/23 Spiral Gear Generator Relationship Specialty Start Date End Date uBnny Scott MD [address] [place] [address] PCP - General Internal Medicine 03/16/23 Bunny Scott MD [address] [place] [address] Home Care Provider Internal Medicine 10/12/23 Spiral Gear Generator Relationship Specialty Start Date End Date Bunny Scott MD [address] [place] [address] PCP - General Internal Medicine 03/16/23 Bunny Scott MD [address] [place] [address] Home Care Provider Internal Medicine 10/12/23 Spiral Gear Generator Relationship Specialty Start Date End Date Bunny Scott MD [address] [place] [address] PCP - General Internal Medicine 03/16/23 Bunny Scott MD [address] [place] [address] Home Care Provider Internal Medicine 10/12/23 Spiral Gear Generator Relationship Specialty Start Date End Date Bunny Scott MD [address] [place] [address] PCP - General Internal Medicine 03/16/23 Bunny Scott MD [address] [place] [address] Home Care Provider Internal Medicine 10/12/23 Spiral Gear Generator Relationship Specialty Start Date End Date Bunny Scott MD [address] [place] [address] PCP - General Internal Medicine 03/16/23 Bunny Scott MD [address] [place] [address] Home Care Provider Internal Medicine 10/12/23 Spiral Gear Generator Relationship Specialty Start Date End Date Bunny Scott MD [address] [place] [address] PCP - General Internal Medicine 03/16/23 Bunny Scott MD [address] [place] [address] Home Care Provider Internal Medicine 10/12/23 Jose Dudley MD [address] [address] Physician Nephrology 01/23/24 Spiral Gear Generator Relationship Specialty Start Date End Date Bunny Scott MD [address] [place] [address] PCP - General Internal Medicine 03/16/23 Bunny Scott MD [address] [place] [address] Home Care Provider Internal Medicine 10/12/23 Jose Dudley MD [address] [address] Physician Nephrology 01/23/24 Spiral Gear Generator Relationship Specialty Start Date End Date Bunny Scott MD [address] [place] [address] PCP - General Internal Medicine 03/16/23 Bunny Scott MD [address] [place] [address] Home Care Provider Internal Medicine 10/12/23 Jose Dudley MD [address] [address] Physician Nephrology 01/23/24 Spiral Gear Generator Relationship Specialty Start Date End Date Bunny Scott DO [address] [facility] [address] [place] [id number] PCP - General Family Medicine 12/13/23 Spiral Gear Generator Relationship Specialty Start Date End Date Bunny Scott MD [address] [place] [address] PCP - General Internal Medicine 03/16/23 Bunny Scott MD [address] [place] [address] Home Care Provider Internal Medicine 10/12/23 Jose Dudley MD [address] [address] Physician Nephrology 01/23/24 Spiral Gear Generator Relationship Specialty Start Date End Date Bunny Scott MD [address] [place] [address] PCP - General Internal Medicine 03/16/23 Bunny Scott MD [address] [place] [address] Home Care Provider Internal Medicine 10/12/23 Jose Dudley MD [address] [address] Physician Nephrology 01/23/24 Spiral Gear Generator Relationship Specialty Start Date End Date Bunny Scott MD [address] [place] [address] PCP - General Internal Medicine 03/16/23 Bunny Scott MD [address] [place] [address] Home Care Provider Internal Medicine 10/12/23 Jose Dudley MD [address] [address] Physician Nephrology 01/23/24 Spiral Gear Generator Relationship Specialty Start Date End Date Bunny Scott DO [address] [facility] [address] [place] [phone] PCP - General Family Medicine 12/13/23 Spiral Gear Generator Relationship Specialty Start Date End Date Bunny Scott MD [address] [place] [address] PCP - General Internal Medicine 03/16/23 Bunny Scott MD [address] [place] [address] Home Care Provider Internal Medicine 10/12/23 Jose Dudley MD [address] [address] Physician Nephrology 01/23/24 Spiral Gear Generator Relationship Specialty Start Date End Date Bunny Scott MD [address] [place] [address] PCP - General Internal Medicine 03/16/23 Bunny Scott MD [address] [place] [address] Home Care Provider Internal Medicine 10/12/23 Jose Dudley MD [address] [address] Physician Nephrology 01/23/24 Spiral Gear Generator Relationship Specialty Start Date End Date Bunny Scott MD [address] [place] [address] PCP - General Internal Medicine 03/16/23 Bunny Scott MD [address] [place] [address] Home Care Provider Internal Medicine 10/12/23 Jose Dudley MD [address] [address] Physician Nephrology 01/23/24 Spiral Gear Generator Relationship Specialty Start Date End Date Bunny Scott MD [address] [place] [address] PCP - General Internal Medicine 03/16/23 Bunny Scott MD [address] [place] [address] Home Care Provider Internal Medicine 07/16/24 Jose Dudley MD [address] [address] Physician Nephrology 01/23/24 Bunny Scott MD [address] [place] [address] Referring Internal Medicine 07/16/24 Spiral Gear Generator Relationship Specialty Start Date End Date Bunny Scott MD [address] [place] [address] PCP - General Internal Medicine 03/16/23 Bunny Scott MD [address] [place] [address] Home Care Provider Internal Medicine 07/16/24 Jose Dudley MD [address] [facility] [facility] [address] [place], [place] [id number] Physician Nephrology 01/23/24 Bunny Scott MD [address] [place] [address] Referring Internal Medicine 07/16/24 Spiral Gear Generator Relationship Specialty Start Date End Date Bunny Scott DO [address] [place] [phone] PCP - General Family Medicine 12/13/23 Team Status: Inactive Member Role Status Dates Brittaney LORENZO MD Attending Provider Active Start: August 28, 2024 End: August 28, 2024 Spiral Gear Generator Relationship Specialty Start Date End Date Brittaney Garcia MD [address] [place] [address] PCP - General Family Medicine 11/25/24 PRN [...] 1 dose, Give after HD session complete. ADD-Greenleaf bag, Suspected Indication (Select all that apply): Sepsis of Unknown Etiology 2138 (New Bag - Provider: Lee aFrfan RN - Comment: dialysis) 005 (Stopped - [...] sedation for opioid reversal - MUST notify transfer station attendant provider immediately after first dose, may give [...] RN)1025 (Self Administered Via Pump - Provider: aKlyani Oreilly RN)1740 (Given - Provider: Kalyani Oreilly [...] BE BASED ON THE PRIMARY CLINICAL RECORDS. Digital Message Display [facility]. provides no warranty or guarantee of the accuracy or completeness of information in this document.
[2025-04-02 09:02] LABS: Hematocrit 33.1 % (40-54); Hemoglobin 10.6 g/dL (13.0-16.5); Immature Granulocytes Count 0.040 X10^3/uL (0.0-0.0); Mean Corp Hgb Conc 32.0 g/dL (32-36); Mean Corpuscular Volume 91.9 fL (80-94); Mean Platelet Vol. 9.5 fl (6.2-12.0); NRBC Flagged by Analyzer 0 % (0-5); Platelet Count 187 K/mm3 (150-450); RBC Distribution Width CV 14.1 % (11.6-14.6); RBC Distribution Width SD 46.9 fl (35.1-43.9); Red Blood Count 3.60 M/mm3 (4.6-6.2); White Blood Count 7.5 K/mm3 (4.4-11.0)
[2025-04-02 09:29] LABS: Cholesterol 165 mg/dL (<=200); Low Density Lipoprotein Calc. 85 mg/dL; Triglycerides 168 mg/dL; Very Low Density Lipoprotein 34 mg/dL (5-40); Vitamin B12 582 pg/mL (180-914); Vitamin D,25 Hydroxy 22.5 ng/mL (30-100); cholesterol:hdl ratio screen 3.20
[2025-04-02 09:45] LABS: Anion Gap 11 (7-18); BUN 56 mg/dL (4-19); BUN/Creat Ratio 8.0 RATIO (10-20); Calcium,Total 9.5 mg/dL (7.6-11.0); Carbon Dioxide 27.7 mmol/L (20.0-29.0); Chloride 97 mmol/L (96-106); Glucose 118 mg/dL (70-99); Potassium 6.2 mmol/L (3.5-5.1)
== END ==
LOC: OLS.SANC 05:00
DX: E11.9 Type 2 diabetes mellitus without complications (principal); I10 Essential (primary) hypertension; E78.5 Hyperlipidemia, unspecified; E65 Localized adiposity; N18.30 Chronic kidney disease, stage 3 unspecified
CPT/HCPCS: 36415; 80048; 80061; 82306; 82607; 84443; 85025